=== PATIENT | male | born 1955 | race Caucasian/White ===

== ENCOUNTER 2023-03-06 21:09 | Emergency (ER) | payer MEDICARE, MEDICAID, SELFPAY ==
[2023-03-06 21:27] VITALS: BP 160/100; PULSE 127; RESP 18; TEMP 37.1; O2SAT 98; BMI 21.6
[2023-03-06 22:14] LABS: Basophils Percent Auto 0.4 % (0.2-2.0); Eosinophils Absolute Auto 0.1 10^3/uL (0.0-0.7); Eosinophils Percent Auto 2.9 % (0.9-7.0); Hematocrit 37.6 % (42.0-54.0); Hemoglobin 13.3 g/dL (14.0-18.0); Immature Granulocytes Abs Auto 0.02 10^3/uL (0.00-0.03); Immature Granulocytes Pct Auto 0.4 % (0.0-0.5); Lymphocytes Absolute Auto 0.9 10^3/uL (1.2-3.8); Mean Corpuscular HGB Conc 35.4 g/dL (29.9-35.2); Mean Corpuscular Hemoglobin 31.4 pg (25.9-34.0); Mean Corpuscular Volume 88.9 fL (80.0-94.0); Mean Platelet Volume 10.5 fL (9.5-13.5); Monocytes Absolute Auto 0.8 10^3/uL (0.3-0.8); Monocytes Percent Auto 17.4 % (1.7-12.0); Neutrophils Absolute Auto 2.9 10^3/uL (1.4-6.5); Neutrophils Percent Auto 60.9 % (43.0-75.0); Platelet Count 203 10^3/uL (150-450); Red Blood Count 4.23 10^6/uL (4.70-6.10); Red Cell Distribution Width 15.2 % (11.0-15.0); White Blood Count 4.8 10^3/uL (4.0-11.0)
[2023-03-06 22:29] LABS: Alanine Aminotransferase 20 U/L (16-63); Albumin Globulin Ratio 0.8; Albumin Level 3.4 g/dL (3.4-5.0); Alkaline Phosphatase 71 U/L (46-116); Anion Gap 12.9; Aspartate Amino Transferase 22 U/L (15-37); BUN Creatinine Ratio 22.9; Bilirubin Total 0.6 mg/dL (0.2-1.0); Calcium 9.4 mg/dL (8.5-10.1); Carbon Dioxide 28.8 mmol/L (21.0-32.0); Chloride 101 mmol/L (98-107); Estimated GFR (African America >60 (>=60); Estimated GFR (Non-African Ame >60 (>=60); Globulin 4.4 g/dL; Glucose 118 mg/dL (74-106); Potassium 3.7 mmol/L (3.5-5.1); Sodium 139 mmol/L (136-145); Total Protein 7.8 g/dL (6.4-8.2)
--- NOTE | 2023-03-06 22:29 | PC.NURSE ---
Patient with what appears to be bug bites on his face. He states they are all over as well. He lives in a home with other people and none of them have any bites on them. He states that he has stage 4 lung cancer and is on immuno therapy for it through the [facility]. He has been on chemotherapy in the past but it damaged his kidneys. He took Benadryl today at 1630 which helped the itching some. He mentions that he has been drinking a lot of alcohol recently while partying with some friends that are in town .
--- NOTE | 2023-03-06 22:34 | ED_ITS ---
HPI - General Adult General Chief complaint: Skin/Abscess/Foreign Body Stated complaint: BITES, UNKNOWN ORIGIN Time Seen by Provider: 03/06/23 21:35 Source: patient Mode of arrival: walk-in Limitations: no limitations History of Present Illness HPI narrative: The patient presented to us with generalized body rash that developed over the last 1 week, he mentioned that he takes immunotherapy for his lung cancer and he mentioned that this rash is very itchy he denies any nausea vomiting or any other complaints he also denies any fever or chills Related Data Previous Rx's Medication Instructions Recorded prednisone 20 mg tablet 40 mg PO DAILY 3 days #6 tabs 03/06/23 Allergies Allergy/AdvReac Type Severity Reaction Status Date / Time No Known Drug Allergies Allergy Verified 03/06/23 21:30 Review of Systems ROS Status of ROS 10 or more systems reviewed and unremarkable except as noted in history and below Exam Narrative Exam Narrative: Nurses notes and vital signs reviewed and patient is not hypoxic. General: Well-appearing and in no apparent distress. Skin: Warm, dry, no pallor noted. No rash. Head: Normocephalic, atraumatic. Neck: Supple, non-tender. Eye: Pupils are equal, round and EOMI. No scleral icterus. Ears, Nose, Mouth, and Throat: TM are clear, no nasal mucosal hypertrophy. Oral mucosa is moist, no posterior oropharynx erythema, uvula is mid-line Cardiovascular: Regular Rate and Rhythm without murmur, gallop or rub. Respiratory: No accessory muscle use or respiratory distress. Lungs are clear to auscultation, no wheezing, rales or rhonchi Chest Wall: no tenderness Back: No midline thoracic or lumbar vertebral tenderness. No CVA tenderness Musculoskeletal: normal ROM, no calf or popliteal tenderness, no lower extremity edema/swelling GI: Abdomen is soft, non-distended. Normal bowel sounds. No masses appreciated. No tenderness to palpation. No rebound, guarding, or rigidity noted. Neurological: A&O x4. No cranial nerve dysfunction observed. No truncal ataxia. Moves all extremities. Sensation intact. Psychiatric: Cooperative and interactive. Normal mood and affect. Skin The patient have a rash that is macular papular with a black spot at the middle of it mostly secondary to the scratch reinaldo that is scattered over the upper and lower extremities as well as the face and lips the patient also have rash on the scalp area and one of the spots on his upper back and his abdomen there is only one spot Constitutional Vital Signs, click to edit/add: Last Vital Signs Temp 98.8 F 03/06/23 21:27 Pulse 127 H 03/06/23 21:27 Resp 18 03/06/23 21:27 BP 160/100 H 03/06/23 21:27 Pulse Ox 98 03/06/23 21:27 Course Vital Signs Vital signs: Vital Signs Temperature 98.8 F 03/06/23 21:27 Pulse Rate 127 H 03/06/23 21:27 Respiratory Rate 18 03/06/23 21:27 Blood Pressure 160/100 H 03/06/23 21:27 Pulse Oximetry 98 03/06/23 21:27 Temperature 98.8 F 03/06/23 21:27 Pulse Rate 127 H 03/06/23 21:27 Respiratory Rate 18 03/06/23 21:27 Blood Pressure 160/100 H 03/06/23 21:27 Pulse Oximetry 98 03/06/23 21:27 Medical Decision Making [facility] Narrative Medical decision making narrative: The patient rashes mostly secondary to the immunotherapy especially with the way that it is extensive there is no fever, the patient CBC and chemistry showed no acute significant pathology He was instructed about hydration he was started on prednisone for the next 3 days, the patient was instructed to call his oncologist as soon as possible to inform him of the presentation The patient is to follow up with primary care physician in next 2-3 days or to return to the emergency department should any of the signs or symptoms worsen or new symptoms develop. The patient agrees with the following Diagnosis and Treatment plan and the patient will be discharged home. Lab Data Labs: Lab Results 03/06/23 Range/Units 22:08 WBC 4.8 (4.0-11.0) 10^3/uL RBC 4.23 L (4.70-6.10) 10^6/uL Hgb 13.3 L (14.0-18.0) g/dL Hct 37.6 L (42.0-54.0) % MCV 88.9 (80.0-94.0) fL MCH 31.4 (25.9-34.0) pg MCHC 35.4 H (29.9-35.2) g/dL RDW 15.2 H (11.0-15.0) % Plt Count 203 (150-450) 10^3/uL MPV 10.5 (9.5-13.5) fL Neut % (Auto) 60.9 (43.0-75.0) % Lymph % (Auto) 18.0 L (20.5-60.0) % [place] % (Auto) 17.4 H (1.7-12.0) % Eos % (Auto) 2.9 (0.9-7.0) % Baso % (Auto) 0.4 (0.2-2.0) % Neut # (Auto) 2.9 (1.4-6.5) 10^3/uL Lymph # (Auto) 0.9 L (1.2-3.8) 10^3/uL [place] # (Auto) 0.8 (0.3-0.8) 10^3/uL Eos # (Auto) 0.1 (0.0-0.7) 10^3/uL Baso # (Auto) 0.0 (0.0-0.1) 10^3/uL Abs Immat Gran (auto) 0.02 (0.00-0.03) 10^3/uL Imm/Tot Granulo (auto) 0.4 (0.0-0.5) % Sodium 139 (136-145) mmol/L Potassium 3.7 (3.5-5.1) mmol/L Chloride 101 (98-107) mmol/L Carbon Dioxide 28.8 (21.0-32.0) mmol/L Anion Gap 12.9 BUN 25.0 H (7.0-18.0) mg/dL Creatinine 1.09 (0.70-1.30) mg/dL Est GFR ( Amer) >60 (>=60) Est GFR (Non-Af Amer) >60 (>=60) BUN/Creatinine Ratio 22.9 Glucose 118 H (74-106) mg/dL Calcium 9.4 (8.5-10.1) mg/dL Total Bilirubin 0.6 (0.2-1.0) mg/dL AST 22 (15-37) U/L ALT 20 (16-63) U/L Alkaline Phosphatase 71 (46-116) U/L Total Protein 7.8 (6.4-8.2) g/dL Albumin 3.4 (3.4-5.0) g/dL Globulin 4.4 g/dL Albumin/Globulin Ratio 0.8 Discharge Plan Discharge Chief Complaint: Skin/Abscess/Foreign Body Clinical Impression: Drug-induced skin rash Patient Disposition: Home, Self-Care Time of Disposition Decision: 22:39 Condition: Good Mode of Transportation: Private Vehicle Prescriptions / Home Meds: New prednisone 20 mg tablet 40 mg PO DAILY 3 Days Qty: 6 0RF Instructions: Acute Rash (ED) Stand Alone Forms: Portal Instructions Referrals: Physician,Non-Staff, MD [Primary Care Provider] - 1 week
[2023-03-06] MEDS: PREDNISONE 20 MG TABLET 40 MG PO (22:47)
== END 2023-03-06 22:51 | disposition home or self-care (01) ==
PROVIDERS: Emergency Provider Emergency Medicine
DX: L27.0 Generalized skin eruption due to drugs and medicaments taken internally (principal); T45.1X5A Adverse effect of antineoplastic and immunosuppressive drugs, initial encounter; C34.90 Malignant neoplasm of unspecified part of unspecified bronchus or lung
CPT/HCPCS: 36415; 80053; 85025; 99283

== ENCOUNTER 2023-07-05 09:00 | Emergency (ER) | payer MEDICARE, MEDICAID, SELFPAY ==
[2023-07-05 09:09] VITALS: BP 151/92; PULSE 84; RESP 18; TEMP 36.7; O2SAT 94; BMI 21.9
--- NOTE | 2023-07-05 09:29 | ED.GENADUL1 ---
HPI - General Adult General Chief complaint: Skin/Abscess/Foreign Body Stated complaint: MOUTH PAIN/SORES Time Seen by Provider: 07/05/23 09:09 Source: patient Mode of arrival: walk-in Limitations: no limitations History of Present Illness HPI narrative: patient developed painful sores to the lips, mouth, tongue and back of the throat a few days ago. No fever or chills. He admits to muscle aches and fatigue as well. Said that it all started after I got the Covid vaccine last week . Related Data Home Medications Medication Instructions Recorded Confirmed atorvastatin 40 mg tablet 40 mg PO DAILY 07/05/23 07/05/23 cilostazol 100 mg tablet 100 mg PO BID 07/05/23 07/05/23 clopidogrel 75 mg tablet 75 mg PO DAILY 07/05/23 07/05/23 isosorbide mononitrate 30 mg 30 mg PO DAILY 07/05/23 07/05/23 tablet,extended release 24 hr levothyroxine 75 mcg tablet 75 mcg PO DAILY 07/05/23 07/05/23 metoprolol tartrate 25 mg tablet mg 07/05/23 naloxone 4 mg/actuation nasal spray intranasal 07/05/23 olanzapine 5 mg tablet mg 07/05/23 oxycodone 5 mg tablet mg 07/05/23 sotorasib 320 mg tablet (Lumakras) mg PO 07/05/23 Previous Rx's Medication Instructions Recorded prednisone 20 mg tablet 40 mg (2 x 20 mg) PO DAILY 3 days 03/06/23 #6 tabs BMX solution 10 ml PO Q8H PRN mouth/throat pain 07/05/23 #150 mL amoxicillin 875 mg tablet 875 mg PO Q12H #20 tabs 07/05/23 Allergies Allergy/AdvReac Type Severity Reaction Status Date / Time No Known Drug Allergies Allergy Verified 03/06/23 21:30 PFSH PFSH Social History Smoking status: Former smoker Exam Narrative Exam Narrative: Nurses notes and vital signs reviewed and patient is not hypoxic. afebrile General: Well-appearing and in no apparent distress. Skin: Warm, dry, no pallor noted. No rash. Head: Normocephalic, atraumatic. Neck: Supple, non-tender. No cervical lymphadenopathy Eye: Pupils are equal, round and EOMI. No scleral icterus. Ears, Nose, Mouth, and Throat: TM are clear, no nasal mucosal hypertrophy. Moderate posterior oropharynx erythema with some exudate, aphthous ulcers noted on tongue and oral mucosa. uvula is mid-line. Oral mucosa is dry. He has two scabbed lesions on his upper lip - no purulent drainage noted. Cardiovascular: Regular Rate and Rhythm without murmur, gallop or rub. Respiratory: No accessory muscle use or respiratory distress. Lungs are clear to auscultation, no wheezing, rales or rhonchi Neurological: A&O x4. No cranial nerve dysfunction observed. No truncal ataxia. Moves all extremities. Sensation intact. Psychiatric: Cooperative and interactive. Normal mood and affect. Constitutional Vital Signs, click to edit/add: Last Vital Signs Temp 98.1 F 07/05/23 09:09 Pulse 84 07/05/23 09:09 Resp 18 07/05/23 09:09 BP 151/92 H 07/05/23 09:09 Pulse Ox 94 L 07/05/23 09:09 O2 Del Method Room Air 07/05/23 09:09 Course Vital Signs Vital signs: Vital Signs Temperature 98.1 F 07/05/23 09:09 Pulse Rate 84 07/05/23 09:09 Respiratory Rate 18 07/05/23 09:09 Blood Pressure 151/92 H 07/05/23 09:09 Pulse Oximetry 94 L 07/05/23 09:09 Oxygen Delivery Method Room Air 07/05/23 09:09 Temperature 98.1 F 07/05/23 09:09 Pulse Rate 84 07/05/23 09:09 Respiratory Rate 18 07/05/23 09:09 Blood Pressure 151/92 H 07/05/23 09:09 Pulse Oximetry 94 L 07/05/23 09:09 Oxygen Delivery Method Room Air 07/05/23 09:09 Medical Decision Making MDM Narrative Medical decision making narrative: started on amoxiciilin and prescribed bmx solution for his aphthous ulcers and pharyngitis. Close PCP follow up recommended. ED return if he worsens. Discharge Plan Discharge Chief Complaint: Skin/Abscess/Foreign Body Clinical Impression: Aphthous stomatitis, Pharyngitis Patient Disposition: Home, Self-Care Time of Disposition Decision: 09:24 Prescriptions / Home Meds: New amoxicillin 875 mg tablet 875 mg PO Q12H Qty: 20 0RF BMX solution 10 ml PO Q8H PRN (Reason: mouth/throat pain) Qty: 150 0RF Rx Instructions: 50mL benadryl, 50mL maalox, 50mL lidocaine mixed; dose is 10mL gargled and swallowed q8hrs prn mouth/throat soreness No Action prednisone 20 mg tablet 40 mg PO DAILY 3 Days Qty: 6 0RF atorvastatin 40 mg tablet 40 mg PO DAILY cilostazol 100 mg tablet 100 mg PO BID clopidogrel 75 mg tablet 75 mg PO DAILY isosorbide mononitrate 30 mg tablet extended release 24 hr 30 mg PO DAILY levothyroxine 75 mcg tablet 75 mcg PO DAILY metoprolol tartrate 25 mg tablet olanzapine 5 mg tablet oxycodone 5 mg tablet naloxone 4 mg/actuation spray,non-aerosol INTRANASAL Lumakras 320 mg tablet PO Instructions: Pharyngitis (ED), Gingivostomatitis (ED) Stand Alone Forms: Portal Instructions Referrals: Physician,Non-Staff, MD [Primary Care Provider] - 1 week
== END 2023-07-05 09:37 | disposition home or self-care (01) ==
PROVIDERS: Emergency Provider Emergency Medicine
DX: K12.0 Recurrent oral aphthae (principal); J02.9 Acute pharyngitis, unspecified; Z79.899 Other long term (current) drug therapy; Z79.890 Hormone replacement therapy; Z87.891 Personal history of nicotine dependence
CPT/HCPCS: 99283

== ENCOUNTER 2024-02-03 14:09 | Outpatient (OUT) | payer MEDICARE, MEDICAID, SELFPAY ==
--- NOTE | 2024-02-03 14:11 | US_ITS ---
[address] [address] Patient Name: CRISTAL BARRY MRN: [id number] date: 1955 Sex: M Assigned Patient Location: US Current Patient Location: US Accession/Order Number: [id number] Exam Date: 02/03/2024 14:12 Report Date: 02/03/2024 15:18 At the request of: YUSEF PANDYA Procedure: US venous doppler UE LT EXAM: US venous doppler UE LT HISTORY: Primary Malignant Neoplasm Of Left Lung Metastatic COMPARISON: None. TECHNIQUE: Grayscale, color and Doppler FINDINGS: Region: Left arm Thrombus: None Flow: Normal Compressibility: Normal Augmentation: Normal US/US venous doppler UE LT IMPRESSION: No deep or superficial vein thrombus identified in the left arm Electronically authenticated by: BRANDON HENRY Date: 02/03/2024 15:18
== END 2024-02-03 14:10 | disposition home or self-care (01) ==
LOC: US 14:09
PROVIDERS: Visit Provider Physician Assistant Medical
DX: C34.92 Malignant neoplasm of unspecified part of left bronchus or lung (principal); M79.89 Other specified soft tissue disorders
CPT/HCPCS: 93971

== ENCOUNTER 2024-02-20 20:02 | Emergency (ER) | payer MEDICARE, MEDICAID, SELFPAY ==
[2024-02-20 20:04] VITALS: BP 161/91; PULSE 80; TEMP 36.7; O2SAT 100; BMI 17.2
--- OUTSIDE RECORDS SUMMARY | 2024-02-20 20:12 | XMS_ITS | CCD ---
Author Organization [facility]ini[facility] Care Team Providers Care Calibrator Barometers Name Role Phone UNKNOWN, PROVIDER Admitting Unavailable UNKNOWN, PROVIDER Attending Unavailable CHRISTINA AZUL Referring Unavailable CHRISTINA AZUL Primary Care Unavailable Adalgisa KHOURY, Heba Unavailable Christina Azul MD Primary Care Provider Verito Whelan MD Unavailable Seb KHOURY, Pito R Unavailable Paul STATION MECHANIC HELPER.Sher VILLEDAy Unavailable [phone] Fredi PAYNE, Denita Unavailable [phone] Adalgisa KHOURY, Heba Unavailable Christina Azul MD Primary Care Provider Tip KHOURY, Verito Unavailable Seb KHOURY, Pito R Unavailable [phone] Paul STATION MECHANIC HELPER.Sher VILLEDAy Unavailable Fredi PAYNE, Denita Unavailable [phone] AMRITA Swann Attending Provider [phone] NO FAMILY, PHYSICIAN Primary Care Provider Unava ilable Adalgisa KHOURY, Heba Unavailable Christina Azul MD Primary Care Provider Fredi PAYNE, Denita Unavailable Christina Azul MD Primary Care Provider Adalgisa KHOURY, Heba Unavailable Christina Azul MD Primary Care Provider Verito Whelan MD Unavailable [phone] Seb KHOURY, Pito Naranjo Unavailable Paul STATION MECHANIC HELPERBrent FOSTER Unavailable [phone] Fredi PAYNE, Denita Unavailable [phone] LOVE ALBERTS Consulting Unavailable ERICKA ., VILMA Attending Unavailable ERICKA ., VILMA Admitting Unavailable AZUL ., DR CHRISTINA Brothers Primary Care Unavailable ERICKA ., VILMA Consulting Unavailable AR, DR YUNIOR Naranjo Consulting Unavailable HOY ., DR MARTINEZ Attending Unavailable HOY ., DR MARTINEZ Admitting Unavailable AZUL ., DR CHRISTINA Brothers Primary Care Unavailable HOY ., DR MARTINEZ Consulting Unavailable TIFFANY, DR JANICE Young Consulting UnavailNIDIA Mcgee Consulting Unavailable JOSUE SINGH Consulting Unavailable ANTUNEZ, LEA Consulting Unavailable PAUL, DR BRENT Ramires Consulting Unavailable PAUL, DR BRENT Ramires Attending Unavailable PAUL, DR BRENT Ramires Admitting Unavailable AZUL ., DR CHRISTINA Brothers Primary Care Unavailable AZUL ., DR CHRISTINA Brothers Consulting Unavailable AZUL ., DR CHRISTINA Brothers Primary Care Unavailable AZUL ., DR CHRISTINA Brothers Attending Unavailable AZUL ., DR CHRISTINA Brothers Admitting Unavailable MOUKAROSANNE, DR MAHARAJ Consulting Unavailable AZUL ., DR CHRISTINA Brothers Primary Care Unavailable MOUKAROSANNE, DR MAHARAJ Attending Unavailable MOUKARBMYKE, DR MAHARAJ Admitting Unavailable CARL, DR BRANDON Negron Consulting Unavailable AZUL ., DR CHRISTINA Brothers Primary Care Unavailable ENGELER, DR NICKO Foster Attending Unavailable ENGELER, DR NICKO oFster Admitting Unavailable ENGELEMarcella, DR NICKO Foster Consulting Unavailable AZUL ., DR CHRISTINA Brothers Consulting Unavailable AZUL ., DR CHRISTINA Brothers Primary Care Unavailable AZUL ., DR CHRISTINA Brothers Attending Unavailable AZUL ., DR CHRISTINA Brothers Admitting Unavailable ZIEBER, DR TRUDY Naranjo Consulting Unavailable CARL, DR BRANDON Negron Consulting Unavailable AZUL ., DR CHRISTINA Brothers Primary Care Unavailable ENGELEMarcella, DR NICKO Foster Attending Unavailable ENGELEMarcella, DR NICKO Foster Admitting Unavailable ENGELEMarcella, DR NICKO Foster Consulting Unavailable CRAL, DR BRANDON Negron Consulting Unavailable AZUL ., DR CHRISTINA Brothers Referring Unavailable AZUL ., DR CHRISTINA Brothers Primary Care Unavailable JAJA, CAMMY Attending Unavailable JAJA, CAMMY Admitting Unavailable JAJA, CAMMY Consulting Unavailable PAUL, DR BRENT Ramires Consulting Unavailable AZUL ., DR CHRISTINA Brothers Primary Care Unavailable PAUL, DR BRENT Ramires Attending Unavailable PAUL, DR BRENT Ramires Admitting Unavailable MOUKAROSANNE, NICKO Referring Unavailable MOUKARBMYKE, NICKO Referring Unavailable MOUKARBEL, NICKO Referring Unavailable MOUKARBMYKE, NICKO Attending Unavailable MOUKANICKO LAY Referring Unavailable MD Christina Azul Primary Care Provider Kev, STATION MECHANIC HELPER Sapna Guzmán Emergency Provider Rohan ROBLES, Minna Unavailable Unavailable Karla, Dr. Perry Attending Unavailable Unavailable Primary Care Provider Unavailrome Diana MD, Heba Unavailable Fredi RN, Denita Unavailable Melaniriddewey STATION MECHANIC HELPER.RN DERMATOLOGY, Maryjo Kinsey Unavailable Willie PAYNE, Julieth Beatty Unavailable Unavail able Cate STATION MECHANIC HELPER.RONAL, Enrique Beatty Primary Care Provider Cate STATION MECHANIC HELPER.RONAL, Enrique Beatty Primary Care Provider NON STAFF Primary Care Provider UnavailMD Luis Oliveira Emergency Provider [phone] Cate, Enrique Beatty Attending Unavailable Cate, Enrique Beatty Attending Unavailable Cate, Enrique Beatty Attending Unavailable Cate, Enrique Beatty Attending Unavailable Cate, Enrique Beatty Attending Unavailable Cate, Enrique L Attending Unavailable Cate, Enrique L Attending Unavailable Cate, Enrique L Attending Unavailable Cate, Enrique Beatty Attending Unavailable Cate, Enrique Beatty Attending Unavailable Cate, Enrique L Attending Unavailable Cate, Enrique L Attending Unavailable Cate, Enrique L Attending Unavailable Cate, Enrique Beatty Attending Unavailable Cate, Enrique Beatty Attending Unavailable Luis Dominguez Attending Unavailable Luis Dominguez Admitting Unavailable NON STAFF Primary Care Unavailable Cate STATION MECHANIC HELPER.Enrique VILLEDA Primary Care Provider CHRISTINA AZUL Primary Care Unavailable PITO GRIGSBY Referring Unavailable PITO GRIGSBY Attending Unavailable CHRISTINA AZUL Primary Care Unavailable PITO GRIGSBY Referring Unavailable CHRISTINA AZUL Primary Care Unavailable CHRISTINA AZUL Primary Care Unavailable PITO GRIGSBY Referring Unavailable BRENT MILLER Referring Unavailable CHRISTINA AZUL Primary Care Unavailable BRENT MILLER Attending Unavailable AZUL, CHRISTINA EDWARD Primary Care Unavailable PITO GRIGSBY Referring Unavailable AZUL, CHRISTINA EDWARD Primary Care Unavailable AZUL, CHRISTINA EDWARD Primary Care Unavailable PITO GRIGSBY Referring Unavailable PITO GRIGSBY Attending Unavailable AZUL, CHRISTINA EDWARD Primary Care Unavailable PITO GRIGSBY Referring Unavailable CATE, ENRIQUE RACHEL Primary Care Unavailable PITO GRIGSBY Referring Unavailable CATE, ENRIQUE RACHEL Primary Care Unavailable DOMINIQUE MURPHY Attending Unavailabl e CATE, ENRIQUE RACHEL Primary Care Unavailable CATE, ENRIQUE RACHEL Primary Care Unavailable CATE, ENRIQUE RACHEL Referring Unavailable CATE, ENRIQUE RACHEL Primary Care Unavailable Jyoti LIMON Attending Unavailable CATE, ENRIQUE RACHEL Primary Care Unavailable CATE, ENRIQUE RACHEL Primary Care Unavailable Jyoti LIMON Referring Unavailable Jyoti LIMON Referring Unavailable CATE, ENRIQUE RACHEL Primary Care Unavailable Jyoti LIMON Referring Unavailable CATE, ENRIQUE RACHEL Primary Care Unavailable Jyoti LIMON Referring Unavailable CATE, ENRIQUE RACHEL Primary Care Unavailable AZUL, CHRISTINA EDWARD Primary Care Unavailable PITO GRIGSBY Attending Unavailable AZUL, CHRISTINA EDWARD Primary Care Unavailable AZUL, CHRISTINA EDWARD Primary Care Unavailable Jyoti LIMON Attending Unavailable AZUL, CHRISTINA EDWARD Primary Care Unavailable NYDIA PARKS Attending Unavailable AZUL, CHRISTINA EDWARD Primary Care Unavailable NYDIA PARKS Attending Unavailable AZUL, CHRISTINA EDWARD Primary Care Unavailable MARYJO FISH Attending UnavailMARYJO Madrid Referring Unavailabl e AZUL, CHRISTINA EDWARD Primary Care Unavailable Jyoti LIMON Attending Unavailable AZUL, CHRISTINA EDWARD Primary Care Unavailable Jyoti LIMON Attending Unavailable AZUL, CHRISTINA EDWARD Primary Care Unavailable BRENT MILLER Attending Unavailable AZUL, CHRISTINA EDWARD Primary Care Unavailable AZUL, CHRISTINA EDWARD Primary Care Unavailable PITO GRIGSBY Referring Unavailable AZUL, CHRISTINA EDWARD Primary Care Unavailable CATE, ENRIQUE RACHEL Primary Care Unavailable PITO GRIGSBY Referring Unavailable PITO GRIGSBY Referring Unavailable AZUL, CHRISTINA EDWARD Primary Care Unavailable AZUL, CHRISTINA EDWARD Primary Care Unavailable MARYJO FISH Attending Unavailabl e MARYJO FISH Referring Unavailabl e CATE, ENRIQUE RACHEL Primary Care Unavailable CATE, ENRIQUE RACHEL Primary Care Unavailable DOMINIQUE MURPHY Attending Unavailabl e CATE, ENRIQUE RAMOS Referring Unavailable CATE, ENRIQUE RACHEL Primary Care Unavailable PITO GRIGSBY Attending Unavailable AZUL, [facility] Primary Care Unavailable AZUL, [facility] Primary Care Unavailable PITO GRIGSBY Attending Unavailable AZUL, [facility] Primary Care Unavailable PITO GRIGSBY Referring Unavailable BRENT MILLER Attending Unavailable AZUL, [facility] Primary Care Unavailable PITO GRIGSBY Referring Unavailable AZUL, [facility] Primary Care Unavailable AZUL, [facility] Primary Care Unavailable PITO GRIGSBY Referring Unavailable MINDY PANDYA Attending Unavailable CATE, ENRIQUE RAMOS Referring Unavailable CATE, ENRIQUE RAMOS Primary Care Unavailable CATE, ENRIQUE RAMOS Referring Unavailable CATE, ENRIQUE RAMOS Primary Care Unavailable PITO GRIGSBY Attending Unavailable Jyoti LIMON Attending Unavailable AZUL, [facility] Primary Care Unavailable YO TSE Attending Unavailable AZUL, [facility] Primary Care Unavailable PITO GRIGSBY Referring Unavailable AZUL, [facility] Primary Care Unavailable MARYJO FISH Attending Unavailabl e AZUL, [facility] Primary Care Unavailable PITO GRIGSBY Attending Unavailable AZUL, [facility] Primary Care Unavailable PITO GRIGSBY Referring Unavailable CATE, ENRIQUE RAMOS Primary Care Unavailable Jyoti LIMON Attending Unavailable CATE, ENRIQUE RAMOS Primary Care Unavailable CATE, ENRIQUE RAMOS Primary Care Unavailable Jyoti LIMON Attending Unavailable CATE, ENRIQUE RAMOS Primary Care Unavailable Jyoti LIMON Attending Unavailable CATE, ENRIQUE RAMOS Primary Care Unavailable CATE, ENRIQUE RAMOS Referring Unavailable CATE, ENRIQUE RACHEL Primary Care Unavailable PITO GRIGSBY Attending Unavailable CATE, ENRIQUE RACHEL Primary Care Unavailable PITO GRIGSBY Attending Unavailable CATE, ENRIQUE RAMOS Primary Care Unavailable MARYJO FISH Attending Unavailabl MARYJO Prince Referring Unavailabl e CATE, ENRIQUE RAMOS Primary Care Unavailable CATE, ENRIQUE RAMOS Primary Care Unavailable PITO GRIGSBY Referring Unavailable AZUL, [facility] Primary Care Unavailable CATE, ENRIQUE RAMOS Primary Care Unavailable CATE, ENRIQUE RACHEL Primary Care Unavailable PITO GRIGSBY Referring Unavailable CATE, ENRIQUE RAMOS Referring Unavailable CATE, ENRIQUE RAMOS Primary Care Unavailable PITO GRIGSBY Attending Unavailable CATE, ENRIQUE RAMOS Primary Care Unavailable CATE, ENRIQUE RAMOS Primary Care Unavailable ENGARIASRJyoti Attending Unavailable CATE, ENRIQUE RAMOS Primary Care Unavailable ENGELERJyoti Referring Unavailable CATE, ENRIQUE RAMOS Primary Care Unavailable ENGELERJyoti Referring Unavailable CATE, ENRIQUE RAMOS Primary Care Unavailable ENGELERJyoti Referring Unavailable CATE, ENRIQUE RAMOS Primary Care Unavailable ENGELERJyoti Attending Unavailable CATE, ENRIQUE RAMOS Primary Care Unavailable ENGELERJyoti Referring Unavailable ENGELERJyoti Attending Unavailable CATE, ENRIQUE RAMOS Primary Care Unavailable ENGELEJyoti Naranjo Attending Unavailable CATE, ENRIQUE RACHEL Primary Care Unavailable AZUL [facility] Primary Care Unavailable BRENT MILLER Attending Unavailable AZUL, [facility] Unavailable AZUL, [facility] Care Unavailable Jyoti LIMON Attending Unavailable AZUL, [facility] Care Unavailable CATE, ENRIQUE RAMOS Primary Care Unavailable ENGELERJyoti Referring Unavailable CATE, ENRIQUE RAMOS Referring Unavailable CATE, ENRIQUE RAMOS Primary Care Unavailable PITO GRIGSBY Attending Unavailable Medications Current Medications Medication Drug Class(es) Dates Sig (Normalized) Sig (Original) [id number] 200 actuat albuterol 0.09 mg/actuat metered dose inhaler (20 sources) beta2-Adrenergic Agonist Start: 06-07-2020 take 1 puff(s) by inhalation every four hours Albuterol Sulfate Active 1 PUFF INHALATION Q4H June 07, 2020 1:00am End: 10-21-2022 take 2 puff(s) by mouth every four hours as needed albuterol HFA (PROVENTIL HFA, VENTOLIN HFA) 90 mcg/actuation inhaler albuterol sulfate HFA 90 mcg/actuation aerosol inhaler INHALE 2 PUFFS BY MOUTH EVERY 4 HOURS NEEDED for SHORTNESS OF BREATH 0 10/21/2022 Discontinued End: 10-21-2022 albuterol (PROVENTIL) 2.5 mg /3 mL (0.083 %) nebulizer solution Use 2.5 mg via nebulizer. 0 10/21/2022 Discontinued Comment on above: albuterol sulfate HF A 90 mcg/actuation aerosol inhaler INHALE 2 PUFFS BY MOUTH EVERY 4 HOURS NEEDED for SHORTNESS OF BREATH Use 2.5 mg via nebul izer. ALPRAZolam 0.25 mg oral tablet (20 sources) Benzodiazepine Start: take 1 tablet by mouth every eight hours as needed ALPRAZolam (XANAX) 0.25 mg tablet Take 0.25 mg by mouth three times a day as needed. 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 15 tablet 0 01/13/2023 01/20/2023 Active Start: 11-18-2021 End: 11-30-2021 take 1 tablet by mouth every eight hours as needed ALPRAZolam (XANAX) 0.25 mg tablet Take 0.25 mg by mouth three times daily as needed. 0 11/18/2021 11/30/2021 Discontinued (Discontinued by Patient) Comment on above: Take 0.25 mg by mout h three times daily as needed. Take 1 tablet by cam th twice daily for 7 days. Take 1 tablet by cam th three times daily as needed for up to 15 days. Take 0.25 mg by mout h three times a day as needed. aspirin 81 mg delayed release oral tablet (20 sources) Platelet Aggregation Inhibitor, Nonsteroidal Anti-inflammatory Drug Start: 04-12-2021 take 1 tablet by mouth once daily Aspirin (Aspirin Low Dose) 81 mg Tablet,Delayed Release (Dr/Ec) Active 81 MG PO Daily April 12, 2021 12:00am Start: 03-28-2021 End: 04-12-2021 take 81 mg by mouth once daily Aspirin Discontinued 81 MG PO Daily March 28, 2021 12:00am April 12, 2021 12:27pm take 1 tablet by cam once daily aspirin 81 mg chewable tablet Take 81 mg by mouth once daily. 0 Active Comment on above: Take 81 mg by mouth once daily. atorvastatin 40 mg oral tablet (20 sources) HMG-CoA Reductase Inhibitor Start: 06-07-20 take 1 tablet by mouth once daily atorvastatin (LIPITOR) 40 mg tablet Take 40 mg by mouth once daily. 0 06/07/2020 Active Comment on above: atorvastatin 40 mg t ablet Take 40 mg by mouth once daily. azithromycin 250 mg oral tablet (20 sources) Macrolide Antimicrobial Start: 02-07-20 Azithromycin (Zithromax Z-David) 250 mg tablet Active 0 .ROUTE .COMPLEX February 07, 2024 12:00am take 500 mg today (day 1), then 250 mg for 4 days (days 2-5) Start: 07-23-2023 End: 08-25-2023 azithromycin (ZITHROMAX) 250 mg tablet TAKE 2 TABLETS by mouth today, THEN take 1 TABLET once a day FOR the next 4 DAYS. 0 07/23/2023 08/25/2023 Discontinued (Course of therapy completed) Start: 03-11-2023 End: 05-16-2023 take 2 tablets by mouth once daily, then take 1 tablet by mouth once daily azithromycin (ZITHROMAX Z-DAVID) 250 mg tablet Take two (2) tablets by mouth the first day and then one (1) tablet daily for 4 days. 6 tablet 0 05/08/2023 05/16/2023 Discontinued (Course of therapy completed) Start: 12-24-2022 take 2 tablets by mo ut once daily, then take 1 tablet by mouth once daily azithromycin (ZITHROMAX Z-DAVID) 250 mg tablet Take two (2) tablets by mouth the first day and then one (1) tablet daily for 4 days. 6 tablet 0 12/24/2022 Active Comment on above: Take two (2) tablets by mouth the first day and then one (1) tablet daily for 4 days. TAKE 2 TABLETS by mo [facility] today, THEN take 1 TABLET once a day FOR the next 4 DAYS. cephalexin 500 mg oral tablet (20 sources) Cephalosporin Antibacterial Start: 2 End: 2 take 1 tablet by mouth three times daily Cephalexin 500 mg tab Take 1 tablet by mouth three times daily. 0 12/21/2021 03/26/2022 Discontinued (Course of therapy completed) Start: 06-12-2020 End: 03-28-2021 take 1 capsule by mouth every eight hours Cephalexin (Keflex) 500 mg capsule Discontinued 500 MG PO Q8H June 12, 2020 1:00am March 28, 2021 9:13am Comment on above: [facility] cilostazol 100 mg oral tablet (20 sources) Phosphodiesterase 3 Inhibitor Start: 10-11-19 take 1 tablet by mouth twice daily cilostazol (PLETAL) 100 mg tablet Take 1 tablet by mouth twice daily. 0 10/10/2021 Active Start: 04-12-2021 End: 10-04-2021 take 1 tablet by mouth twice daily cilostazol (PLETAL) 100 mg tablet Take 1 tablet by mouth twice daily. 0 10/10/2021 Active Start: 06-07-2020 End: 03-28-2021 take 100 mg by mouth once daily Cilostazol Discontinue d 100 MG PO Daily June 07, 2020 1:00am March 28, 2021 9:14am Comment on above: Take 1 tablet by cam twice daily. Take 100 mg by mouth twice daily. ciprofloxacin 500 mg oral tablet (2 sources) Quinolone Antimicrobial Start: 01-15-20 End: 01-22-20 take 1 tablet by mouth twice daily ciprofloxacin HCl (CIPRO) 500 mg tablet Take 1 tablet by mouth twice daily for 7 days. 14 tablet 0 01/14/2022 01/21/2022 Active Comment on above: Take 1 tablet by cam twice daily for 7 days. ciprofloxacin 3 mg/ml / dexamethasone 1 mg/ml otic suspension (1 source) Corticosteroid, Quinolone Antimicrobial Start: 02-07-20 End: 02-13-20 ciprofloxacin-dexAMET Hasone (CIPRODEX) 0.3-0.1 % otic suspension Use 4 Drops in both ears twice daily. 0 02/06/2023 02/12/2023 Active Comment on above: Use 4 Drops in both ears twice daily. clopidogrel 75 mg oral tablet (20 sources) P2Y12 Platelet Inhibitor Start: 10-11-19 take 1 tablet by mouth once daily clopidogrel (PLAVIX) 75 mg tablet Take 1 tablet by mouth once daily. 0 10/10/2021 Active Start: 06-07-2020 End: 10-04-2021 take 1 tablet by mouth once daily clopidogrel (PLAVIX) 75 mg tablet Take 1 tablet by mouth once daily. 0 10/10/2021 Active Comment on above: Take 1 tablet by cam th once daily. clopidogrel 75 mg ta blet dexamethasone 4 mg oral tablet (20 sources) Corticosteroid Start: take 1 tablet by mouth twice daily at mealtime dexAMETHasone (DECADRON) 4 mg tablet Take 1 tablet by mouth two times a day with meals. 30 tablet 1 12/02/2023 Active DULoxetine 30 mg delayed release oral capsule (20 sources) Serotonin and Norepinephrine Reuptake Inhibitor Start: End: take 1 capsule by mouth once daily DULoxetine (CYMBALTA) 30 mg capsule Indications: Neuropathy due to chemotherapeutic drug (HCC) Take 1 capsule by mouth once daily. 90 capsule 0 12/26/2023 03/25/2024 Active enteric contrast (will be provided with radiology test) (1 source) Start: End: enteric contrast (will be provided with radiology test) For CT CHESTABD/PEL W IVCON Routine order Administer, As Directed One Time Only, via Oral, Rectal, both Oral and Rectal, Enteric Tube, Stoma or Indwelling Catheter, Enteric Contrast as designated per enteric contrast guidelines 1 Each 0 08/20/2022 08/21/2022 Active Comment on above: For CT CHESTABD/PEL W IVCON Routine order Administer, As Directed One Time Only, via Oral, Rectal, both Oral and Rectal, Enteric Tube, Stoma or Indwelling Catheter, Enteric Contrast as designated per enteric contrast guidelines 72 hr fentaNYL 0.05 mg/hr transdermal system (8 sources) Opioid Agonist Start: 024 Fentanyl Active 1 PATCH TOPICAL Every 72 hours February 07, 2024 12:00am Start: 01-09-2024 End: 02-08-2024 fentaNYL (DURAGESIC) 50 mcg/ hr Indications: Neoplasm related pain Apply 1 Patch as directed every 72 hours for 30 days. Do not cut patch. 10 Patch 0 01/09/2024 Active ferrous sulfate 325 mg oral tablet (20 sources) Start: 12-10-2021 End: 03-26-2022 FEROSUL 325 mg (65 mg iron) tablet gabapentin 400 mg oral capsule (20 sources) Anti-epilepti c Agent Start: 11-21-2023 End: 12-26-2023 take 1 capsule by mouth twice daily gabapentin (NEURONTIN) 400 mg capsule Indications: Neuropathy due to chemotherapeutic drug (HCC) Take 1 capsule by mouth two times a day for 30 days. 60 capsule 0 11/21/2023 12/26/2023 Discontinued Start: 05-16-2023 End: 11-21-2023 take 1 capsule by mouth three times daily gabapentin (NEURONTIN) 300 mg capsule Take 1 capsule by mouth three times a day 90 capsule 3 06/13/2023 11/21/2023 Discontinued Start: 05-16-2023 End: 06-15-2023 take 1 capsule by mouth three times daily, then take 2 capsules by mouth three times daily, then take 3 capsules by mouth three times daily gabapentin (NEURONTIN) 100 mg capsule Indications: Neuropathy due to chemotherapeutic drug (HCC) Take 1 capsule by mouth three times a day for 3 days, THEN 2 capsules three times a day for 3 days, THEN 3 capsules three times a day for 24 days. 243 capsule 0 05/16/2023 06/13/2023 Discontinued Start: 11-04-2022 End: 12-04-2022 take 1 capsule by mouth twice daily gabapentin (NEURONTIN) 300 mg capsule Take 1 capsule by mouth twice daily for 30 days. 60 capsule 2 11/04/2022 Active Comment on above: Take 1 capsule by mo [facility] twice daily for 30 days. Take 1 capsule by mo [facility] three times a day for 3 days, THEN 2 capsules three times a day for 3 days, THEN 3 capsules three times a day for 24 days. Take 1 capsule by mo [facility] three times a day for 120 days. Take 1 capsule by mo [facility] three times a day 24 hr isosorbide mononitrate 30 mg extended release oral tablet (20 sources) Nitrate Vasodilator Start: 03-28-20 End: 10-30-19 take 30 mg by mouth once daily Isosorbide Mononitrate Active 30 MG PO Daily March 28, 2021 12:00am Comment on above: Take 30 mg by mouth once daily. levoFLOXacin 500 mg oral tablet (13 sources) Quinolone Antimicrobial Start: 11-03-19 End: 11-13-19 take 1 tablet by mouth once daily levoFLOXacin (LEVAQUIN) 500 mg tablet Take 1 tablet by mouth once daily for 10 days. 10 tablet 0 11/02/2022 11/12/2022 Active Start: 09-11-2022 End: 09-18-2022 take 1 tablet by mouth once daily levoFLOXacin (LEVAQUIN) 750 mg tablet Take 1 tablet by mouth once daily for 7 days. 7 tablet 0 09/11/2022 09/18/2022 Active Start: 08-20-2022 End: 08-27-2022 take 1 tablet by mouth once daily levoFLOXacin (LEVAQUIN) 750 mg tablet Take 1 tablet by mouth once daily for 7 days. 7 tablet 0 08/20/2022 08/27/2022 Active Start: 11-18-2021 End: 11-26-2021 take 1 tablet by mouth once daily levoFLOXacin (LEVAQUIN) 750 mg tablet Take 750 mg by mouth once daily. 0 11/18/2021 11/26/2021 Active Comment on above: Take 750 mg by mouth once daily. Take 1 tablet by [facility] once daily for 7 days. Take 1 tablet by [facility] once daily for 10 days. levothyroxine sodium 0.075 mg oral tablet (20 sources) l-Thyroxine Start: 3 End: take 1 tablet by mouth once daily levothyroxine (SYNTHROID) 75 mcg tablet Take 1 tablet by mouth once daily. 30 tablet 1 12/24/2023 02/22/2024 Active Start: 04-23-2023 End: 06-04-2023 take 1 tablet by mouth once daily levothyroxine (SYNTHROID) 50 mcg tablet Take 1 tablet by mouth once daily. 30 tablet 0 05/05/2023 05/19/2023 Discontinued Comment on above: Take 1 tablet by cam once daily. methylPREDNISolone 4 mg oral tablet (19 sources) Corticosteroid Start: 02-07-20 Methylprednisolone Active 4 MG PO As Directed February 07, 2024 12:00am Start: 07-23-2023 End: 08-25-2023 methylPREDNISolone (MEDROL D OSE-PACK) 4 mg Dose-Pack Take by mouth as directed. Per package instructions 0 07/23/2023 08/25/2023 Discontinued Start: 03-10-2023 End: 03-15-2023 methylPREDNISolone (MEDROL, DAVID,) 4 mg Dose-Pack Take by mouth as directed. 21 tablet 0 03/10/2023 03/15/2023 Active Start: 10-10-2022 End: 10-21-2022 methylPREDNISolone (MEDROL D OSE-PACK) 4 mg Dose-Pack Take by mouth as directed. Per package instructions 0 10/10/2022 10/21/2022 Discontinued Start: 02-11-2022 End: 03-26-2022 methylPREDNISolone (MEDROL, DAVID,) 4 mg Dose-Pack Take as directed. 1 Package 0 02/11/2022 03/26/2022 Discontinued (Course of therapy completed) Start: 02-11-2022 methylPREDNISo lone (MEDROL, DAVID,) 4 mg Dose-Pack Take as directed. 1 Package 0 02/11/2022 Active Comment on above: Take as directed. Take by mouth as dir ected. Per package instructions Take by mouth as dir ected. minocycline 50 mg oral tablet (2 sources) Tetracycline-class Drug Start: 03-13-20 End: 03-26-20 take 1 tablet by mouth twice daily Minocycline HCl 50 mg tablet Take 50 mg by mouth twice daily. 0 03/13/2022 03/26/2022 Discontinued (Discontinued by another Health Care Provider) Comment on above: Take 50 mg by mouth twice daily. naloxone hydrochloride 40 mg/ml nasal spray (4 sources) Opioid Antagonist Start: 01-09-20 naloxone 4 mg/actuation nasal spray (NARCAN) Indications: Opioid contract exists Use 1 spray in one nostril as needed for overdose. May repeat every 2 to 3 min in alternating nostrils until medical assistance is available 1 Each 1 01/09/2024 Active Start: 06-13-2023 End: 08-25-2023 naloxone 4 mg/actuation nasa l spray (NARCAN) Indications: Opioid contract exists Use 1 spray in one nostril as needed for overdose. May repeat every 2 to 3 min in alternating nostrils until medical assistance is available 2 Each 1 06/13/2023 08/25/2023 Discontinued Comment on above: Use 1 spray in one n ostril as needed for overdose. May repeat every 2 to 3 min in alternating nostrils until medical assistance is available naloxone 4 mg/actuation nasal spray (NARCAN) (7 sources) Start: 4 naloxone 4 mg/actuation nasal spray (NARCAN) Indications: Opioid contract exists Use 1 spray in one nostril as needed for overdose. May repeat every 2 to 3 min in alternating nostrils until medical assistance is available 1 Each 1 01/09/2024 Active ondansetron 8 mg oral tablet (20 sources) Serotonin-3 Receptor Antagonist Start: 3 take 1 tablet by mouth every eight hours as needed ondansetron (ZOFRAN) 8 mg tablet Take 1 tablet by mouth every 8 hours as needed for nausea/vomiting. 90 tablet 1 11/11/2022 Active Start: 10-25-2021 End: 10-21-2022 take 1 tablet by mouth every eight hours as needed ondansetron (ZOFRAN) 8 mg tablet Take 1 tablet by mouth every 8 hours as needed for nausea/vomiting. 90 tablet 1 10/25/2021 10/21/2022 Discontinued Comment on above: Take 1 tablet by cam every 8 hours as needed for nausea/vomiting. oxyCODONE hydrochloride 10 mg oral tablet (20 sources) Opioid Agonist Start: 12-26-19 End: 01-25-20 take 1 tablet by mouth every four hours as needed oxyCODONE IR (ROXICODONE) 10 mg tab Indications: Neoplasm related pain Take 1-2 tablets by mouth every 4 hours as needed for pain for up to 30 days. 360 tablet 0 12/26/2023 Active Start: 11-21-2023 End: 12-21-2023 take 1 tablet by mouth every four hours as needed for pain oxyCODONE (ROXICODONE) 15 mg immediate release tablet Indications: Neuropathy due to chemotherapeutic drug (HCC) , Neoplasm related pain , Encounter for palliative care Take 1 tablet by mouth every 4 hours as needed for pain for up to 30 days. 180 tablet 0 11/21/2023 12/21/2023 Start: 06-13-2023 End: 11-21-2023 take 1 tablet by mouth every six hours as needed for pain oxyCODONE IR (ROXICODONE) 5 mg immediate release tablet Indications: Neoplasm related pain Take 1 tablet by mouth every 6 hours as needed for pain for up to 15 days. 60 tablet 0 10/21/2023 11/05/2023 Start: 06-12-2020 End: 03-28-2021 take 5-10 mg by mouth every six hours Oxycodone Discontinued 5 - 10 MG PO Q6H 60 8 June 12, 2020 March 28, 2021 9:14am Comment on above: Take 1-2 tablets by mouth every 6 hours as needed for pain Take 1 tablet by cam th every 6 hours as needed for pain for up to 15 days. potassium chloride 10 meq extended release oral tablet (20 sources) Start: 2 End: 2 take 1 tablet by mouth once daily potassium chloride (K-TAB) 10 mEq tablet Take 1 tablet by mouth once daily. 30 tablet 3 12/24/2021 03/26/2022 Discontinued (Discontinued by another Health Care Provider) Comment on above: Take 1 tablet by cam th once daily. 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 90 capsule 0 12/26/2023 Active Sotorasib (1 source) Start: 4 take 1 tablet by mouth once daily Sotorasib (Lumakras) 320 mg tablet Active 960 MG PO Daily February 07, 2024 12:00am sotorasib (LUMAKRAS) 320 mg tablet (20 sources) Start: 4 take 3 tablets by mouth once daily sotorasib (LUMAKRAS) 320 mg tablet Take 3 tablets by mouth once daily. 90 tablet 3 02/04/2024 Active Start: 08-25-2023 End: 02-04-2024 take 3 tablets by mouth once daily sotorasib (LUMAKRAS) 320 mg tablet Take 3 tablets by mouth once daily. 90 tablet 3 08/25/2023 02/04/2024 Discontinued Start: 08-25-2023 take 3 tablets by mo uth once daily sotorasib (LUMAKRAS) 320 mg tablet Take 3 tablets by mouth once daily. 90 tablet 3 08/25/2023 Active Start: 05-13-2023 End: 08-25-2023 take 3 tablets by mouth once daily sotorasib (LUMAKRAS) 320 mg tablet Take 3 tablets by mouth once daily. 90 tablet 3 05/13/2023 08/25/2023 Discontinued Start: 05-13-2023 take 3 tablets by mo uth once daily sotorasib (LUMAKRAS) 320 mg tablet Take 3 tablets by mouth once daily. 90 tablet 3 05/13/2023 Active Comment on above: Take 3 tablets by mo uth once daily. sulfamethoxazole 800 mg / trimethoprim 160 mg oral tablet (20 sources) Dihydrofolate Reductase Inhibitor Antibacterial, Sulfonamide Antimicrobial Start: End: take 1 tablet by mouth twice daily sulfamethoxazole-tr imethoprim (BACTRIM DS,SEPTRA DS) 800-160 mg per tablet Take 1 tablet by mouth twice daily. 0 01/18/2022 03/26/2022 Discontinued (Course of therapy completed) Comment on above: Take 1 tablet by cam twice daily. traZODone hydrochloride 50 mg oral tablet (5 sources) Serotonin Reuptake Inhibitor Start: End: take 1 tablet by mouth once daily at bedtime traZODone (DESYREL) 50 mg tablet Indications: Insomnia due to medical condition , Anxiety about health Take 1 tablet by mouth daily at bedtime. 30 tablet 1 01/09/2024 02/08/2024 Active Completed/Discontinued Medications Medication Drug Class(es) Dates Sig (Normalized) Sig (Original) acetaminophen 500 mg oral tablet (4 sources) Start: 10-02-2021 End: 10-22-2021 take 2 tablets by mouth every six hours acetaminophen (TYLENOL) 500 mg tablet Take 2 tablets by mouth every 6 hours. 0 10/02/2021 10/22/2021 Discontinued Comment on above: Take 2 tablets by mo [facility] every 6 hours. acetaminophen 325 mg / oxyCODONE hydrochloride 5 mg oral tablet (20 sources) Opioid Agonist Start: 10-17-2022 End: 06-13-2023 take 1-2 tablets by mouth every four hours as needed for pain oxyCODONE-acetamino phen (PERCOCET) 5-325 mg tablet Indications: Cancer associated pain Take 1 to 2 tablets by mouth every 4 hours as needed for pain. 50 tablet 0 05/13/2023 06/13/2023 Discontinued (Course of therapy completed) Start: 06-07-2020 End: 06-12-2020 take 1 tablet by mouth every six hours Oxycodone-Acetaminophen Discontinued 1 T AB PO Q6H June 07, 2020 1:00am June 12, 2020 11:40am Comment on above: Take 1-2 tablets by mouth every 4 hours as needed for pain. Take 1 to 2 tablets by mouth every 4 hours as needed for pain. albuterol 0.833 mg/ml / ipratropium bromide 0.167 mg/ml inhalation solution (20 sources) Anticholinergic, beta2-Adrenergic Agonist Start: 01-30-20 End: 05-20-20 take 3 mL by inhalation every six hours as needed ipratropium-albuter ol (DUONEB) 0.5 mg-3 mg(2.5 mg base)/3 mL nebu Inhale 3 mL as instructed every 6 hours as needed for wheezing/shortness of breath. 120 Each 3 04/29/2022 05/20/2023 Discontinued Comment on above: Inhale 3 mL as instr ucted every 6 hours as needed for wheezing/shortness of breath. amoxicillin 875 mg oral tablet (9 sources) Penicillin-class Antibacterial Start: 10-15-19 take 1 tablet by mouth every twelve hours amoxicillin (AMOXIL) 875 mg tablet Take 1 tablet by mouth every 12 hours. 0 10/15/2023 Active Start: 02-04-2023 End: 02-15-2023 take 1 capsule by mouth twice daily amoxicillin (AMOXIL) 500 mg capsule Take 500 mg by mouth twice daily. 0 02/06/2023 02/15/2023 Active Comment on above: Take 500 mg by mouth twice daily. Take 1 tablet by cam th every 12 hours. amoxicillin 875 mg / clavulanate 125 mg oral tablet (4 sources) Penicillin-class Antibacterial Start: End: take 1 tablet by mouth twice daily amoxicillin-clavulanat e potassium (AUGMENTIN) 875-125 mg per tablet Take 1 tablet by mouth two times a day for 7 days. 14 tablet 0 05/19/2023 05/20/2023 Discontinued Comment on above: Take 1 tablet by cam two times a day for 7 days. Ciprofloxacin-Dexametha sone (Ciprodex) 0.3-0.1 % drops,suspension (1 source) Start: End: Ciprofloxacin-Dexameth asone (Ciprodex) 0.3-0.1 % drops,suspension Discontinued 4 DROPS EAR-RIGHT Twice daily 7.5 7 February 04, 2023 12:00am February 07, 2024 3:49pm cloNIDine hydrochloride 0.1 mg oral tablet (10 sources) Central alpha-2 Adrenergic Agonist End: take 1 tablet by mouth three times daily cloNIDine HCl (CATAPRES) 0.1 mg tablet Take 0.1 mg by mouth three times daily. 0 12/03/2021 Discontinued (Discontinued by Patient) Comment on above: Take 0.1 mg by mouth three times daily. cyclobenzaprine hydrochloride 10 mg oral tablet (3 sources) Muscle Relaxant Start: End: take 10 mg by mouth three times daily Cyclobenzaprine Discontinued 10 MG PO Three times daily June 12, 2020 1:00am March 28, 2021 9:14am diphenhydrAMINE 12.5 mg/5 mL lidocaine visc 2% MAALOX 200-200-20 mg/5 mL nystatin prednisoLONE 15 mg/5 mL oral liquid 1:1:1:1:1 (CPD) (20 sources) Start: End: take 5 mL by mouth every six hours as needed diphenhydrAMINE 12.5 mg/5 mL lidocaine visc 2% MAALOX 200-200-20 mg/5 mL nystatin prednisoLONE 15 mg/5 mL oral liquid 1:1:1:1:1 (CPD) Swish and Swallow 5 mL by mouth every 6 hours as needed. 300 mL 1 05/08/2023 08/25/2023 Discontinued Start: 05-08-2023 take 5 mL by mouth e very six hours as needed diphenhydrAMINE 12.5 mg/5 mL lidocaine visc 2% MAALOX 200-200-20 mg/5 mL nystatin prednisoLONE 15 mg/5 mL oral liquid 1:1:1:1:1 (CPD) Swish and Swallow 5 mL by mouth every 6 hours as needed. 300 mL 1 05/08/2023 Active Start: 12-24-2022 take 5 mL by mouth e very six hours as needed diphenhydrAMINE 12.5 mg/5 mL lidocaine visc 2% MAALOX 200-200-20 mg/5 mL nystatin prednisoLONE 15 mg/5 mL oral liquid 1:1:1:1:1 (CPD) Take 5 mL by mouth every 6 hours as needed. 300 mL 1 12/24/2022 Active Start: 12-24-2022 take 5 mL by mouth e very six hours as needed diphenhydrAMINE 12.5 mg/5 mL lidocaine visc 2% MAALOX 200-200-20 mg/5 mL nystatin prednisoLONE 15 mg/5 mL oral liquid 1:1:1:1:1 (CPD) Take 5 mL by mouth every 6 hours as needed. Swish and Swallow 250 mL 1 12/24/2022 Active Comment on above: Take 5 mL by mouth e very 6 hours as needed. Swish and Swallow Take 5 mL by mouth e very 6 hours as needed. Swish and Swallow 5 mL by mouth every 6 hours as needed. fluticasone propionate 0.05 mg/actuat metered dose nasal spray (16 sources) Corticosteroid Start: 03-17-20 23 End: 05-20-20 23 take 2 spray(s) nasal route once daily fluticasone (FLONASE) 50 mcg/actuation nasal spray instill 2 (TWO) sprays IN EACH NOSTRIL DAILY 0 03/17/2023 05/20/2023 Discontinued Comment on above: instill 2 (TWO) spra ys IN EACH NOSTRIL DAILY folic acid 1 mg oral tablet (20 sources) Start: 10-30-19 22 End: 03-26-20 22 take 1 tablet by mouth once daily folic acid 1 mg tablet Take 1 tablet by mouth once daily. 90 tablet 1 10/29/2021 03/26/2022 Discontinued (Discontinued by another Health Care Provider) Comment on above: Take 1 tablet by cam once daily. 120 actuat formoterol fumarate 0.0048 mg/actuat / glycopyrrolate 0.009 mg/actuat metered dose inhaler (3 sources) beta2-Adrenergic Agonist Start: 06-07-20 End: 02-07-20 Glycopyrrolate-Form oterol (Bevespi Aerosphere) 9-4.8 mcg HFA aerosol inhaler Discontinued 2 PUFF INHALATION Q12H June 07, 2020 1:00am February 07, 2024 3:49pm isosorbide dinitrate 10 mg oral tablet (20 sources) Nitrate Vasodilator Start: 06-07-20 End: 12-04-19 22 take 1 tablet by mouth once daily in the morning, then take 1 tablet by mouth once isosorbide dinitrate (ISORDIL) 10 mg tablet TAKE 1 TABLET BY MOUTH EVERY MORNING and TAKE 1 TABLET BY MOUTH EVERY afternoon 0 06/07/2021 12/03/2021 Discontinued Start: 03-28-2021 End: 04-12-2021 take 10 mg by mouth twice daily Isosorbide Dinitrate Discontinued 10 MG PO Twice daily March 28, 2021 12:00am April 12, 2021 12:30pm End: 12-03-2021 take 1 tablet by mouth twice daily isosorbide dinitrate (ISORDIL, SORBITRATE) 30 mg tablet Take 30 mg by mouth twice daily. 0 12/03/2021 Discontinued Comment on above: TAKE 1 TABLET BY CAM TH EVERY MORNING and TAKE 1 TABLET BY MOUTH EVERY afternoon Take 30 mg by mouth twice daily. iv contrast (will be provided with radiology test) (7 sources) Start: 10-20-2023 End: 10-21-2023 iv contrast (will be provided with radiology test) CT Chest W -Inject, intravenously, once for 1 dose.No IV access, insert saline lock prior to the beginning of sedation, infusion, injection of imaging exam. Discontinue saline lock post exam. If Pt. has a central line or IVAD, may access for administration according to line specific nursing protocol. Once exam is complete flush line and de-access according to line specific nursing protocol in the CT contrast administration guidelines link. 1 Each 0 10/20/2023 10/21/2023 Start: 10-20-2023 End: 10-21-2023 iv contrast (will be provide d with radiology test) CT Chest W -Inject, intravenously, once for 1 dose.No IV access, insert saline lock prior to the beginning of sedation, infusion, injection of imaging exam. Discontinue saline lock post exam. If Pt. has a central line or IVAD, may access for administration according to line specific nursing protocol. Once exam is complete flush line and de-access according to line specific nursing protocol in the CT contrast administration guidelines link. 1 Each 0 10/20/2023 10/21/2023 Active Start: 08-20-2022 End: 08-21-2022 iv contrast (will be provide d with radiology test) CT Chest ABD/PEL-Inject, intravenously, once for 1 dose.No IV access, insert saline lock prior to the beginning of sedation, infusion, injection of imaging exam. Discontinue saline lock post exam. If Pt. has a central line or IVAD, may access for administration according to line specific nursing protocol. Once exam is complete flush line and de-access according to line specific nursing protocol in the CT contrast administration guidelines link. 1 Each 0 08/20/2022 08/21/2022 Active Start: 06-11-2022 End: 06-12-2022 iv contrast (will be provide d with radiology test) CT Chest W -Inject, intravenously, once for 1 dose.No IV access, insert saline lock prior to the beginning of sedation, infusion, injection of imaging exam. Discontinue saline lock post exam. If Pt. has a central line or IVAD, may access for administration according to line specific nursing protocol. Once exam is complete flush line and de-access according to line specific nursing protocol in the CT contrast administration guidelines link. 1 Each 0 06/11/2022 06/12/2022 Start: 04-29-2022 End: 04-30-2022 iv contrast (will be provide d with radiology test) MRI LSP Inject, intravenously, once for 1 dose. No IV access, insert saline lock prior to the beginning of sedation, infusion, injection of imaging exam. Discontinue saline lock post exam. If Pt. has a central line or IVAD, may access for administration according to line specific nursing protocol. Once exam is complete flush line and de-access according to line specific nursing protocol in the MR contrast administration guidelines link. 1 Each 0 04/29/2022 04/30/2022 Active Start: 10-19-2021 End: 10-20-2021 inject 1 dose intravenously once iv contrast (will be provided with radiology test) Indications: Malignant neoplasm of upper lobe of left lung (HCC) MRI Brain Inject, intravenously, once for 1 dose.No IV access, insert saline lock prior to beginning of sedation, infusion, injection of imaging exam.Discontinue saline lock post exam. If Pt. has a central line or IVAD, may access for administration according to line specific nursing protocol.Once exam is complete flush line and de-access according to line specific nursing protocol in the MR contrast administration guidelines link 1 Each 0 10/19/2021 10/20/2021 Comment on above: MRI Brain Inject, in travenously, once for 1 dose.No IV access, insert saline lock prior to beginning of sedation, infusion, injection of imaging exam.Discontinue saline lock post exam. If Pt. has a central line or IVAD, may access for administration according to line specific nursing protocol.Once exam is complete flush line and de-access according to line specific nursing protocol in the MR contrast administration guidelines link MRI LSP Inject, intr avenously, once for 1 dose. No IV access, insert saline lock prior to the beginning of sedation, infusion, injection of imaging exam. Discontinue saline lock post exam. If Pt. has a central line or IVAD, may access for administration according to line specific nursing protocol. Once exam is complete flush line and de-access according to line specific nursing protocol in the MR contrast administration guidelines link. CT Chest W -Inject, intravenously, once for 1 dose.No IV access, insert saline lock prior to the beginning of sedation, infusion, injection of imaging exam. Discontinue saline lock post exam. If Pt. has a central line or IVAD, may access for administration according to line specific nursing protocol. Once exam is complete flush line and de-access according to line specific nursing protocol in the CT contrast administration guidelines link. CT Chest ABD/PEL-Inj ect, intravenously, once for 1 dose.No IV access, insert saline lock prior to the beginning of sedation, infusion, injection of imaging exam. Discontinue saline lock post exam. If Pt. has a central line or IVAD, may access for administration according to line specific nursing protocol. Once exam is complete flush line and de-access according to line specific nursing protocol in the CT contrast administration guidelines link. ketoconazole 20 mg/ml topical cream (20 sources) Azole Antifungal Start: End: ketoconazole (NIZORAL) 2 % cream mix with mometasone and APPLY TO THE AFFECTED AREA(S) TWICE DAILY for 30 days 0 04/28/2023 08/25/2023 Discontinued Comment on above: mix with mometasone and APPLY TO THE AFFECTED AREA(S) TWICE DAILY for 30 days lidocaine 0.04 mg/mg medicated patch (4 sources) Antiarrhythmic, Amide Local Anesthetic Start: End: apply 1 dose transdermal route once daily lidocaine (SALONPAS) 4 % patch Apply 1 Patch as directed once daily. 0 10/03/2021 10/22/2021 Discontinued (Discontinued by another Health Care Provider) Comment on above: Apply 1 Patch as dir ected once daily. metoprolol tartrate 25 mg oral tablet (20 sources) beta-Adrenergic Melissa Start: End: take 1 tablet by mouth once daily metoprolol tartrate, short acting, (LOPRESSOR) 25 mg tablet Take 25 mg by mouth once daily. 0 06/07/2020 12/03/2021 Discontinued Start: 06-07-2020 take 50 mg by mouth twice flaquita y Metoprolol Tartrate Active 50 MG PO Twice daily June 07, 2020 1:00am metoprolol tartr ate, short acting, (LOPRESSOR) 25 mg tablet Take 50 mg by mouth twice daily. 0 Active End: 12-03-2021 take 1 tablet by mouth twice daily metoprolol tartrate, short acting, (LOPRESSOR) 50 mg tablet Take 50 mg by mouth twice daily. 0 12/03/2021 Discontinued Comment on above: metoprolol tartrate 25 mg tablet Take 25 mg by mouth once daily. Take 50 mg by mouth twice daily. mometasone furoate 1 mg/ml topical cream (20 sources) Corticosteroid Start: 04-28-2023 End: 08-25-2023 mometasone (ELOCON) 0.1 % cream APPLY TO THE AFFECTED AREA(S) TWICE DAILY up to 3 (THREE) weeks NEEDED 0 04/28/2023 08/25/2023 Discontinued Comment on above: APPLY TO THE AFFECTE D AREA(S) TWICE DAILY up to 3 (THREE) weeks NEEDED mupirocin 0.02 mg/mg topical ointment (20 sources) RNA Synthetase Inhibitor Antibacterial End: 10-21-2022 mupirocin (BACTROBAN) 2 % ointment mupirocin 2 % topical ointment APPLY TO THE AFFECTED AREA(S) THREE TIMES DAILY NEEDED 0 10/21/2022 Discontinued Comment on above: mupirocin 2 % topica l ointment APPLY TO THE AFFECTED AREA(S) THREE TIMES DAILY NEEDED Nebulizer and Compressor For Neb (20 sources) Start: 04-01-2022 End: 05-20-2023 Nebulizer and Compressor For Neb 1 Each as needed. Use as directed. 1 Each 0 04/01/2022 05/20/2023 Discontinued Start: 04-01-2022 Nebulizer and Compressor For Neb 1 Each as needed. Use as directed. 1 Each 0 04/01/2022 Active Start: 01-29-2022 End: 04-01-2022 Nebulizer and Compressor For Neb 1 Each as needed. Use as directed. 1 Each 0 01/29/2022 04/01/2022 Discontinued Start: 01-29-2022 Nebulizer and Compressor For Neb 1 Each as needed. Use as directed. 1 Each 0 01/29/2022 Active Comment on above: 1 Each as needed. Us e as directed. nicotine 2 mg chewing gum (4 sources) Cholinergic Nicotinic Agonist Start: 2 End: 2 take 2 mg by mouth every two hours as needed nicotine polacrilex (NICORETTE) 2 mg gum Take 1 Each by mouth every 2 hours as needed. 150 Each 1 09/11/2021 10/22/2021 Discontinued Comment on above: Take 1 Each by mouth every 2 hours as needed. OLANZapine 5 mg oral tablet (20 sources) Atypical Antipsychotic Start: 4 End: 4 take 1 tablet by mouth once daily at bedtime OLANZapine (ZYPREXA) 5 mg tablet Indications: Insomnia due to medical condition , Anorexia Take 1 tablet by mouth daily at bedtime. 30 tablet 3 10/20/2023 12/23/2023 Discontinued Start: 05-16-2023 End: 10-11-2023 take 1 tablet by mouth once daily at bedtime OLANZapine (ZYPREXA) 5 mg tablet Indications: Insomnia due to medical condition , Anorexia Take 1 tablet by mouth daily at bedtime. 30 tablet 3 06/13/2023 08/25/2023 Discontinued Start: 01-17-2023 End: 05-16-2023 take 1 tablet by mouth once daily at bedtime OLANZapine orally disintegrating (ZYPREXA ZYDIS) 5 mg disintegrating tablet Take 1 tablet by mouth daily at bedtime. 30 tablet 0 01/17/2023 05/16/2023 Discontinued Comment on above: Take 1 tablet by cam th daily at bedtime. 10 actuat olodaterol 0.0025 mg/actuat / tiotropium 0.0025 mg/actuat inhalation spray (20 sources) Anticholinergic, beta2-Adrenergic Agonist Start: 02-22-2022 End: 10-21-2022 STIOLTO RESPIMAT 2.5-2.5 mcg/actuation INHALE TWO (2) PUFFS BY MOUTH ONCE DAILY 4 g 10 02/22/2022 10/21/2022 Discontinued Start: 07-24-2021 End: 02-22-2022 tiotropium-olodaterol (STIOL TO RESPIMAT) 2.5-2.5 mcg/actuation Inhale 2 Puffs as instructed once daily. 4 g 5 07/24/2021 01/29/2022 Discontinued Comment on above: Inhale 2 Puffs as in structed once daily. INHALE TWO (2) PUFFS BY MOUTH ONCE DAILY polyethylene glycol 3350 18396 mg powder for oral solution (4 sources) Osmotic Laxative Start: 10-04-19 End: 10-23-19 polyethylene glycol 3350 (MIRALAX, GLYCOLAX) 17 gram packet Take 1 Packet by mouth once daily. Dissolve dose in 4 - 8 ounces of liquid and take as directed. 0 10/03/2021 10/22/2021 Discontinued (Discontinued by another Health Care Provider) Comment on above: Take 1 Packet by cam th once daily. Dissolve dose in 4 - 8 ounces of liquid and take as directed. potassium bicarbonate 25 meq effervescent oral tablet (20 sources) Start: 04-08-20 End: 09-22-19 take 1 tablet by mouth once daily Potassium Bicarb-Citric Acid (K-LYTE) 25 mEq disintegrating tablet Take 1 tablet by mouth once daily. 30 tablet 1 04/08/2023 09/22/2023 Discontinued Comment on above: Take 1 tablet by [facility] once daily. predniSONE 10 mg oral tablet (20 sources) Start: 08-20-19 End: 10-22-19 take 1 tablet by mouth once daily, then take 2 tablets by mouth once daily, then take 1 tablet by mouth once daily predniSONE (DELTASONE) 10 mg tablet Take 1 tablet by mouth once daily. Take 2 daily x 1 week, then 1 daily x 1 week 21 tablet 0 08/20/2022 10/21/2022 Discontinued Start: 12-19-2021 End: 03-26-2022 predniSONE (DELTASONE) 10 mg tablet DAY 1 TAKE 7 TABLETS BY MOUTH, DAY 2 TAKE 6 TABLETS, DAY 3 TAKE 5 TABLETS, DAY 4 TAKE 4 TABLETS, DAY 5 TAKE 3 TABLETS, DAY 6 TAKE 2 TABLETS, DAY 7 TAKE 1 TABLET 0 12/19/2021 03/26/2022 Discontinued (Course of therapy completed) Start: 06-12-2020 End: 03-28-2021 Prednisone Discontinued 1 do se pk PO per package directions June 12, 2020 1:00am March 28, 2021 9:14am take 4 tabs for 3 days then take 3 tabs for 3 days then take 2 tabs for 3 days then take 1 tab for 3 days Comment on above: DAY 1 TAKE 7 TABLETS BY MOUTH, DAY 2 TAKE 6 TABLETS, DAY 3 TAKE 5 TABLETS, DAY 4 TAKE 4 TABLETS, DAY 5 TAKE 3 TABLETS, DAY 6 TAKE 2 TABLETS, DAY 7 TAKE 1 TABLET Take 1 tablet by [facility] once daily. Take 2 daily x 1 week, then 1 daily x 1 week prochlorperazine 10 mg oral tablet (20 sources) Phenothiazine Start: End: take 1 tablet by mouth every six hours as needed prochlorperazine (COMPAZINE) 10 mg tablet Take 1 tablet by mouth every 6 hours as needed. 100 tablet 1 10/25/2021 03/26/2022 Discontinued (Discontinued by Patient) Comment on above: Take 1 tablet by cam th every 6 hours as needed. sertraline 25 mg oral tablet (20 sources) Serotonin Reuptake Inhibitor Start: End: take 1 tablet by mouth once daily sertraline (ZOLOFT) 25 mg tablet Take 1 tablet by mouth once daily. 30 tablet 3 01/17/2023 05/20/2023 Discontinued Comment on above: Take 1 tablet by cam th once daily. 1000 ml sodium chloride 9 mg/ml injection (4 sources) Start: End: NaCl 0.9% 1,000 mL iv bolus Start: 11-25-2023 End: 11-25-2023 NaCl 0.9% 1,000 mL iv bolus traMADol hydrochloride 50 mg oral tablet (20 sources) Opioid Agonist Start: 04-08-2022 End: 10-21-2022 take 1 tablet by mouth every four hours as needed for pain traMADol (ULTRAM) 50 mg tablet Indications: Cancer related pain Take 1 tablet by mouth every 4 hours as needed for pain. 30 tablet 0 04/08/2022 10/21/2022 Discontinued Comment on above: Take 1 tablet by cam th every 4 hours as needed for pain. Problems Active Problems Problem Classification Problem Date Documented Date Episodic/Chronic Acute and chronic tonsillitis (10 sources) Mass of palatine tonsil; Translations: [Other chronic diseases of tonsils and adenoids] Onset: 3 05-27-2023 Chronic Anxiety disorders (9 sources) Generalized anxiety disorder; Translations: [Anxiety] Onset: 2 02-19-2023 Chronic Cancer of bronchus; lung (20 sources) Malignant neoplasm of upper lobe of left lung; Translations: [Malignant neoplasm of upper lobe, left bronchus or lung] Onset: 2 Chronic Cancer of bronchus; lung (2 sources) History of malignant neoplasm of thoracic cavity structure; Translations: [Personal history of other malignant neoplasm of bronchus and lung] 01-03-2023 Episodic Cancer of head and neck (4 sources) Malignant tumor of oropharynx; Translations: [Malignant neoplasm of oropharynx, unspecified] Onset: 3 05-27-2023 Chronic Cancer of thyroid (1 source) Malignant tumor of thyroid gland; Translations: [Malignant neoplasm of thyroid gland] Chronic Chronic obstructive pulmonary disease and bronchiectasis (20 sources) Centriacinar emphysema; Translations: [Centrilobular emphysema] Onset: 2 10-04-2021 Chronic Complication of device; implant or graft (6 sources) Atherosclerosis of coronary artery bypass graft(s) without angina pectoris; Translations: [ATS CA BP GRAFT NO ANGINA PECTORIS] Onset: 3 Chronic Complications of surgical procedures or medical care (9 sources) Anemia due to antineoplastic chemotherapy; Translations: [Antineoplastic chemotherapy induced anemia] Onset: 3 Chronic Coronary atherosclerosis and other heart disease (20 sources) Coronary atherosclerosis; Translations: [Atherosclerotic heart disease of [place] coronary artery without angina pectoris] Onset: 2 10-04-2021 Chronic Coronary atherosclerosis and other heart disease (1 source) Presence of aortocoronary bypass graft; Translations: [PRESENCE AORTOCORONARY BYPASS GRAFT] Onset: 3 Episodic Disorders of lipid metabolism (1 source) Pure hypercholesterolemia, unspecified; Translations: [PURE HYPERCHOLESTEROLEMIA UNSPEC] Onset: 3 Chronic Essential hypertension (20 sources) Essential hypertension; Translations: [Essential (primary) hypertension] Onset: 2 10-04-2021 Chronic Headache; including migraine (4 sources) Headache; including migraine; Translations: [HEADACHE UNSPECIFIED] Onset: 2 Hypertension with complications and secondary hypertension (1 source) Hypertensive urgency; Translations: [HYPERTENSIVE URGENCY] Onset: 2 Chronic Miscellaneous mental health disorders (1 source) Anxiety about body function or health; Translations: [Other symptoms and signs involving emotional state] 01-09-2024 Episodic Nausea and vomiting (3 sources) Nausea; Translations: [Nausea] 05-16-2023 Episodic Nutritional deficiencies (20 sources) Deficiency of macronutrients; Translations: [Unspecified protein-calorie malnutrition] Onset: 3 Chronic Occlusion or stenosis of precerebral arteries (20 sources) Bilateral stenosis of carotid arteries; Translations: [Occlusion and stenosis of bilateral carotid arteries] Onset: 2 10-04-2021 Chronic Other aftercare (1 source) Surgical follow-up; Translations: [Encounter for follow-up examination after completed treatment for conditions other than malignant neoplasm] Episodic Other aftercare (1 source) buttermaker continuous churn (current) use of aspirin; Translations: [CARRIAGE FEEDER CURRENT USE OF ASPIRIN] Onset: 3 Episodic Other aftercare (1 source) buttermaker continuous churn (current) use of antithrombotics/antiplate lets; Translations: [CARRIAGE FEEDER ANTITHROMBOT/ANTIPLATLETS ] Onset: 3 Episodic Other aftercare (1 source) Other fpc (current) drug therapy; Translations: [OTH [facility] CURRENT DRUG THERAPY] Onset: 3 Episodic Other aftercare (3 sources) Under care of palliative care physician; Translations: [Encounter for palliative care] 05-16-2023 Episodic Other aftercare (2 sources) Drug therapy finding; Translations: [buttermaker continuous churn (current) use of opiate analgesic] 06-13-2023 Episodic Other aftercare (1 source) Patient encounter status; Translations: [Encounter for palliative care] 11-21-2023 Episodic Other connective tissue disease (1 source) Swelling of upper limb; Translations: [Other specified soft tissue disorders] 02-03-2024 Episodic Other ear and sense organ disorders (1 source) Otitis externa; Translations: [Unspecified otitis externa, unspecified ear] 02-12-2023 Chronic Other lower respiratory disease (2 sources) Nodule of lung; Translations: [Solitary pulmonary nodule] Episodic Other lower respiratory disease (3 sources) Lung mass; Translations: [Other nonspecific abnormal finding of lung field] 04-13-2021 Episodic Other lower respiratory disease (2 sources) Multiple nodules of lung; Translations: [Other nonspecific abnormal finding of lung field] Episodic Other lower respiratory disease (2 sources) Hemoptysis; Translations: [Hemoptysis] 01-03-2023 Episodic Other lower respiratory disease (1 source) Dyspnea; Translations: [Shortness of breath] 02-10-2024 Episodic Other nervous system disorders (20 sources) Pain due to neoplastic disease; Translations: [Neoplasm related pain (acute) (chronic)] Chronic Other nervous system disorders (3 sources) Neuropathy; Translations: [Drug-induced polyneuropathy] 05-16-2023 Chronic Other nervous system disorders (1 source) Neoplasm related pain (acute) (chronic); Translations: [Cancer related pain] Onset: 3 Chronic Other non-traumatic joint disorders (4 sources) Pain in left shoulder; Translations: [PAIN IN LEFT SHOULDER] Onset: 3 Episodic Other non-traumatic joint disorders (1 source) Chronic pain of left upper limb; Translations: [Pain in left shoulder] 11-21-2023 Episodic Other nutritional; endocrine; and metabolic disorders (3 sources) Loss of appetite; Translations: [Anorexia] 05-16-2023 Episodic Other nutritional; endocrine; and metabolic disorders (1 source) Abnormal weight loss; Translations: [Abnormal weight loss] 11-04-2023 Episodic Other nutritional; endocrine; and metabolic disorders (1 source) Unintentional weight loss; Translations: [Abnormal weight loss] 11-21-2023 Episodic Other screening for suspected conditions (not mental disorders or infectious disease) (1 source) CT of chest abnormal; Translations: [Abnormal findings on diagnostic imaging of other specified body structures] Chronic Other skin disorders (4 sources) Eruption; Translations: [Rash and other nonspecific skin eruption] Episodic Otitis media and related conditions (1 source) Otitis media; Translations: [Otitis media, unspecified, unspecified ear] 02-12-2023 Episodic Peripheral and visceral atherosclerosis (20 sources) Peripheral vascular disease, unspecified; Translations: [Peripheral vascular disease, unspecified] Onset: 2 10-04-2021 Chronic Residual codes; unclassified (5 sources) Insomnia co-occurrent and due to medical condition; Translations: [Insomnia due to medical condition] 05-16-2023 Chronic Residual codes; unclassified (1 source) Acquired absence of lung [part of]; Translations: [ACQUIRED ABSENCE OF LUNG] Onset: 3 Episodic Screening and history of mental health and substance abuse codes (1 source) Personal history of nicotine dependence; Translations: [PERSONAL HISTORY OF NICOTINE DEPEND] Onset: 3 Episodic Skin and subcutaneous tissue infections (4 sources) Infection of skin; Translations: [Local infection of the skin and subcutaneous tissue, unspecified] Episodic Substance-related disorders (20 sources) Nicotine dependence; Translations: [Nicotine dependence, unspecified, uncomplicated] Onset: 2 10-03-2021 Chronic Thyroid disorders (10 sources) Hypothyroidism caused by drug; Translations: [Hypothyroidism due to medicaments and other exogenous substances] Onset: 4 06-02-2023 Chronic Unclassified (1 source) CONTACT W/AND (SUSP) EXPOS COVID-19; Translations: [CONTACT W/AND (SUSP) EXPOS COVID-19] Onset: 2 Unclassified (1 source) Lung Cancer Onset: 3 Past or Other Problems Problem Classification Problem Date Documented Date Episodic/Chronic Acute and unspecified renal failure (13 sources) Acute injury of kidney; Translations: [Acute kidney failure, unspecified] Onset: 11-21-2021 Episodic Administrative/socia l admission (20 sources) Discharge status; Translations: [Encounter for administrative examinations, unspecified] Onset: 09-27-2021 10-04-2021 Episodic Cardiac dysrhythmias (4 sources) Tachycardia, unspecified; Translations: [TACHYCARDIA UNSPECIFIED] Onset: 12-07-2021 Episodic Deficiency and other anemia (1 source) Anemia, unspecified; Translations: [ANEMIA UNSPECIFIED] Onset: 02-12-2022 Episodic E Codes: Adverse effects of medical drugs (1 source) Adverse effect of antineoplastic and immunosuppressive drugs, initial encounter; Translations: [Anemia due to antineoplastic chemotherapy] Onset: 04-01-2023 Episodic Malaise and fatigue (7 sources) Malaise and fatigue; Translations: [Other malaise] Onset: 03-11-2023 Episodic Other circulatory disease (1 source) Hypotension, unspecified; Translations: [HYPOTENSION UNSPECIFIED] Onset: 12-13-2021 Episodic Other lower respiratory disease (1 source) Shortness of breath; Translations: [SHORTNESS OF BREATH] Onset: 11-21-2021 Episodic Other male genital disorders (1 source) Disorder of prostate, unspecified; Translations: [DISORDER OF PROSTATE UNSPECIFIED] Onset: 12-13-2021 Episodic Other nervous system disorders (20 sources) Postoperative pain ; Translations: [Other acute postprocedural pain] Onset: 09-26-2021 10-04-2021 Episodic Other non-traumatic joint disorders (4 sources) Pain in right hip; Translations: [PAIN IN RIGHT HIP] Onset: 05-01-2022 Episodic Other nutritional; endocrine; and metabolic disorders (1 source) Abnormal weight loss; Translations: [Abnormal weight loss] Onset: 11-04-2023 Episodic Other screening for suspected conditions (not mental disorders or infectious disease) (11 sources) Other specified abnormal findings of blood chemistry; Translations: [Liver function tests abnormal] Onset: 11-21-2021 Episodic Other skin disorders (1 source) Rash and other nonspecific skin eruption; Translations: [Skin rash] Onset: 04-01-2023 Episodic Residual codes; unclassified (20 sources) Current drinker; Translations: [Other specified health status] Onset: 09-26-2021 10-04-2021 Episodic Spondylosis; intervertebral disc disorders; other back problems (5 sources) Lumbago with sciatica, unspecified side; Translations: [LUMBAGO WITH SCIATICA UNS SIDE] Onset: 05-04-2022 Episodic NEGATED: Highlighted row has been ruled out!Unclassified (2 sources) No known active problems 01-17-2023 Results Test Name Value Interpretation Reference Range Facil ity CNPNon 02-16-2024 CNPN Normal [facility] CNPNon 02-10-2024 CNPN Normal [facility] XR chest 2V*on 02-08-2024 XR chest 2V* [facility] [place] [address] [place] [address] XRay Report Signed Patient: Pedro Gu MR#: [id number] : 1955 Acct:[id number] Age/Sex: 68 / M ADM Date: 02/07/24 Loc: ER Room: Type: [facility] ER Attending Dr: Copies to: Luis Dominguez MD Ordering Provider: Luis Dominguez MD Date of Service: 02/07/24 XR/XR chest 2V*: Shortness of Breath/Dyspnea Plain film chest 2 view HISTORY: Shortness of breath COMPARISON: 01/03/23 FINDINGS: SUPPORT DEVICES: None POSTSURGICAL CHANGES: Sternal wires redemonstrated HEART: Within normal limits PULMONARY TRIXIE: Within normal limits MEDIASTINUM: Unremarkable LUNGS AND PLEURA: No acute lung process, pleural effusion or pneumothorax identified. Similar post therapy changes of LEFT lung cancer. BONY STRUCTURES: Intact ADDITIONAL FINDINGS None XR/XR chest 2V* IMPRESSION: No acute process. Stable LEFT lung cancer post therapy changes. Impression dictated by: Buzz Barroso M.D.02/08/2024 9:12 AM Dictation Location: [place] [address] Transcribed By: SEA 02/08/24911 Dictated By: Buzz Barroso DO 02/08/24909 Signed By: 02/08/24911 Normal [facility] Alanine aminotransferase [En zymatic activity/volume] in Serum or PlasmaOrdered By: Luis Dominguez on 02-07-2024 ALT [Catalytic activity/Vol] 10 U/L Normal 7-52 [facility] [place] Comment on above: Performed By: #### H S TROP, SCAN CBC, CMP, BNP, CK #### [address] Albumin [Mass/volume] in Ser um or Plasma by Bromocresol green (BCG) dye binding methoOrdered By: Luis Dominguez on 02-07-2024 Albumin BCG dye [Mass/Vol] 3.6 g/dL 3.5-5.7 [facility] Alkaline phosphatase [Enzyma tic activity/volume] in Serum or PlasmaOrdered By: Luis Dominguez on 02-07-2024 ALP [Catalytic activity/Vol] 38 U/L Normal 34-104 [facility] Comment on above: Performed By: #### H S TROP, SCAN CBC, CMP, BNP, CK #### [facility] [address] [place] [address] Aspartate aminotransferase [ Enzymatic activity/volume] in Serum or PlasmaOrdered By: Luis Dominguez on 02-07-2024 AST [Catalytic activity/Vol] 20 U/L Normal 13-39 [facility] Comment on above: Performed By: #### H S TROP, SCAN CBC, CMP, BNP, CK #### [facility] [address] [place] [address] [place] Automated basophil %Ordered By: Luis Dominguez on 02-07-2024 Basophils/100 WBC (Bld) 0.7 % Normal . [facility] Comment on above: Performed By: #### H S TROP, SCAN CBC, CMP, BNP, CK #### [address] Automated basophil countOrde red By: Luis Dominguez on 02-07-2024 Basophils (Bld) [#/Vol] 0.0 10*3/uL Normal 0.0-0.2 [facility] Comment on above: Performed By: #### H S TROP, SCAN CBC, CMP, BNP, CK #### [address] Automated blood monocyte cou ntOrdered By: Luis Dominguez on 02-07-2024 Monocytes (Bld) [#/Vol] 0.4 10*3/uL Normal 0.0-0.8 [facility] Comment on above: Performed By: #### H S TROP, SCAN CBC, CMP, BNP, CK #### [address] Automated eosinophil %Ordere d By: Luis Dominguez on 02-07-2024 Eosinophils/100 WBC (Bld) 0.1 % Normal . [facility] Comment on above: Performed By: #### H S TROP, SCAN CBC, CMP, BNP, CK #### [address] Automated eosinophil countOr dered By: Luis Dominguez on 02-07-2024 Eosinophils (Bld) [#/Vol] 0.0 10*3/uL Normal 0.0-0.45 [facility] Comment on above: Performed By: #### H S TROP, SCAN CBC, CMP, BNP, CK #### [address] Automated monocyte %Ordered By: Luis Dominguez on 02-07-2024 Monocytes/100 WBC (Bld) 9.5 % Normal . [facility] Comment on above: Performed By: #### H S TROP, SCAN CBC, CMP, BNP, CK #### [address] Automated neutrophil %Ordere d By: Luis Dominguez on 02-07-2024 Neutrophils/100 WBC (Bld) 75.4 % Normal . [facility] Comment on above: Performed By: #### H S TROP, SCAN CBC, CMP, BNP, CK #### [facility] [address] [place] [address] BNP ser/plasOrdered By: Luis Dominguez on 02-07-2024 Natriuretic peptide B (Bld) [Mass/Vol] 123.0 pg/mL High 5-100 [facility] Comment on above: Result Comment: PERF ORMED BY: [place] [address] PATHOLOGIST SIDE PANEL HANGER ALEX CROWLEY M.D. Performed By: #### H S TROP, SCAN CBC, CMP, BNP, CK #### [address] Bilirubin.total [Mass/volume ] in Serum or PlasmaOrdered By: Luis Dominguez on 02-07-2024 Bilirubin [Mass/Vol] 0.7 mg/dL Normal 0.3-1.0 [facility] Comment on above: Performed By: #### H S TROP, SCAN CBC, CMP, BNP, CK #### [address] Calcium [Mass/volume] in Ser um or PlasmaOrdered By: Luis Dominguez on 02-07-2024 Calcium [Mass/Vol] 9.4 mg/dL Normal 8.6-10.3 [facility] Comment on above: Performed By: #### H S TROP, SCAN CBC, CMP, BNP, CK #### [facility] [address] [place] [address] [place] Carbon dioxide, total [Moles /volume] in Serum or PlasmaOrdered By: Luis Dominguez on 02-07-2024 CO2 [Moles/Vol] 23.7 mmol/L Normal 21.0-31.0 [facility] Comment on above: Performed By: #### H S TROP, SCAN CBC, CMP, BNP, CK #### [place] [address] [place] Chloride [Moles/volume] in S juanpablo or PlasmaOrdered By: Luis Dominguez on 02-07-2024 Chloride [Moles/Vol] 100 mmol/L Normal 98-107 [facility] Comment on above: Performed By: #### H S TROP, SCAN CBC, CMP, BNP, CK #### [address] Comprehensive Metabolic Pane tim 02-07-2024 Albumin [Mass/Vol] 3.6 g/dL Normal 3.5-5.7 [facility] Comment on above: Performed By: #### H S TROP, SCAN CBC, CMP, BNP, CK #### [address] Creatinine Clr Calc Pharmacy 47.99 Normal [facility] Comment on above: Result Comment: PERF ORMED BY: [place] [address] PATHOLOGIST SIDE PANEL HANGER ALEX CROWLEY M.D. Performed By: #### H S TROP, SCAN CBC, CMP, BNP, CK #### [address] GFR/1.73 sq M.predicted MDRD (S/P/Bld) [Vol rate/Area] mL/min/{1.73_m2} Normal [facility] Comment on above: Performed By: #### H S TROP, SCAN CBC, CMP, BNP, CK #### [address] Creatine kinase [Enzymatic a ctivity/volume] in Serum or PlasmaOrdered By: Luis Dominguez on 02-07-2024 CK [Catalytic activity/Vol] 54 U/L Normal 30-223 [facility] Comment on above: Performed By: #### H S TROP, SCAN CBC, CMP, BNP, CK #### [address] Creatinine [Mass/volume] in Serum or PlasmaOrdered By: Luis Dominguez on 02-07-2024 Creatinine [Mass/Vol] 1.12 mg/dL Normal 0.70-1.30 [facility] Comment on above: Performed By: #### H S TROP, SCAN CBC, CMP, BNP, CK #### [address] ECG 12 lead ECGon 02-07-2024 ECG 12 lead ECG [facility] [place] [address] [place] [address] Electrocardiograph Report Signed Patient: Pedro Gu MR#: [id number] : 1955 Acct:[id number] Age/Sex: 68 / M ADM Date: 02/07/24 Loc: ER Room: Type: [facility] ER Attending Dr: Ordering Provider: Luis Dominguez MD Date of Service: 02/07/24 ECG/ECG 12 lead ECG: Shortness of Breath/Dyspnea Copies to: Test Reason : Blood Pressure : */* mmHG Vent. Rate : 86 BPM Atrial Rate : 86 BPM P-R Int : 134 ms QRS Dur : 90 ms QT Int : 396 ms P-R-T Axes : 72 95 84 degrees QTcB Int : 473 ms Normal sinus rhythm Possible Left atrial enlargement Rightward axis Borderline ECG When compared with ECG of 04-Feb-2023 10:34, premature ventricular complexes are no longer present Confirmed by LUIS DOMINGUEZ MD ([id number]) on 02/08/2024 12:20:22 AM Referred By: Electronically Signed By: LUIS DOMINGUEZ MD Transcribed By: MUS Signed By Luis Dominguez MD 02/08/24 0020 Normal [facility] Erythrocyte distribution wid th [Ratio] by Automated countOrdered By: Luis Dominguez on 02-07-2024 Erythrocyte distribution width (RBC) [Ratio] 14.9 % High 12.0-14.8 [facility] Comment on above: Performed By: #### H S TROP, SCAN CBC, CMP, BNP, CK #### [facility] [address] [place] [address] [place] Erythrocytes [#/volume] in B lood by Automated countOrdered By: Luis Dominguez on 02-07-2024 RBC (Bld) [#/Vol] 3.76 10*6/uL Low 3.90-5.60 [facility] Comment on above: Performed By: #### H S TROP, SCAN CBC, CMP, BNP, CK #### [facility] [address] [place], [place] [id number] [place] Glucose [Mass/volume] in Ser um or PlasmaOrdered By: Luis Dominguez on 02-07-2024 Glucose [Mass/Vol] 168 mg/dL High 70-100 [facility] Comment on above: ADA recommended refe rence rangeRandom Glucose Reference Range is dependent on time and content of last meal. Glucose of more than 200 mg/dL in a nonstressed, ambulatory subject supports the diagnosis of Diabetes Mellitus. Result Comment: [place] om Glucose Reference Range is dependent on time and content of last meal. Glucose of more than 200 mg/dL in a nonstressed, ambulatory subject supports the diagnosis of Diabetes Mellitus. ADA recommended reference range Performed By: #### H S TROP, SCAN CBC, CMP, BNP, CK #### [address] Hematocrit [Volume Fraction] of Blood by Automated countOrdered By: Luis Dominguez on 02-07-2024 Hematocrit (Bld) [Volume fraction] 35.7 % Low 38.8-50.0 [facility] Comment on above: Performed By: #### H S TROP, SCAN CBC, CMP, BNP, CK #### [address] Hemoglobin [Mass/volume] in BloodOrdered By: Luis Dominguez on 02-07-2024 Hemoglobin (Bld) [Mass/Vol] 12.1 g/dL Low 13.0-17.0 [facility] Comment on above: Performed By: #### H S TROP, SCAN CBC, CMP, BNP, CK #### [address] Leukocytes [#/volume] correc nani for nucleated erythrocytes in Blood by Automated counOrdered By: Luis Dominguez on 02-07-2024 WBC corrected for nucl RBC Auto (Bld) [#/Vol] 4.0 10*3/uL Low 4.1-10.5 [facility] Leukocytes [#/volume] in Blo od by Automated countOrdered By: Luis Dominguez on 02-07-2024 WBC (Bld) [#/Vol] 4.0 10*3/uL Low 4.1-10.5 [facility] Comment on above: Performed By: #### H S TROP, SCAN CBC, CMP, BNP, CK #### [address] Lymphocytes [#/volume] in Bl ood by Automated countOrdered By: Luis Dominguez on 02-07-2024 Lymphocytes (Bld) [#/Vol] 0.6 10*3/uL Low 1.00-4.8 [facility] Comment on above: Performed By: #### H S TROP, SCAN CBC, CMP, BNP, CK #### [facility] [address] [place] [address] [place] Lymphocytes/100 leukocytes i n Blood by Automated countOrdered By: Luis Dominguez on 02-07-2024 Lymphocytes/100 WBC (Bld) 14.3 % Normal . [facility] Comment on above: Performed By: #### H S TROP, SCAN CBC, CMP, BNP, CK #### [address] MCH [Entitic mass] by Automa nani countOrdered By: Luis Dominguez on 02-07-2024 MCH (RBC) [Entitic mass] 32.1 pg Normal 27.5-35.2 [facility] [place] Comment on above: Performed By: #### H S TROP, SCAN CBC, CMP, BNP, CK #### [address] MCHC Auto (RBC) [Mass/Vol]Or dered By: Luis Dominguez on 02-07-2024 MCHC (RBC) [Mass/Vol] 33.8 g/dL 32.5-35.6 [facility] [place] MCV [Entitic volume] by Auto mated countOrdered By: Luis Dominguez on 02-07-2024 MCV (RBC) [Entitic vol] 94.9 fL Normal 83.5-101 [facility] [place] Comment on above: Performed By: #### H S TROP, SCAN CBC, CMP, BNP, CK #### [place] [address] [place] Monocyte distribution width [Entitic volume] in Blood by AutomatedOrdered By: Luis Dominguez on 02-07-2024 Monocyte distribution width Auto (Bld) [Entitic vol] 19.12 % 0.00-20.00 [facility] [place] Neutrophils [#/volume] in Bl ood by Automated countOrdered By: Luis Dominguez on 02-07-2024 Neutrophils (Bld) [#/Vol] 3.0 10*3/uL Normal 1.8-7.7 [facility] [place] Comment on above: Performed By: #### H S TROP, SCAN CBC, CMP, BNP, CK #### [facility] [address] No Panel InformationOrdered By: Luis Dominguez on 02-07-2024 Estimated GFR (CKD-EPI) > 60.0 mL/Min [facility] [place] [facility] Creatinine Clearance (Chem 47.99 [facility] [place] Nucleated erythrocytes [Pres ence] in Blood by Automated countOrdered By: Luis Dominguez on 02-07-2024 Nucleated RBC Auto Ql (Bld) 0.1 /100{WBC} 0-0.5 [facility] [place] Platelet adequacy [Presence] in Blood by Light microscopyOrdered By: Luis Dominguez on 02-07-2024 Platelets LM Ql (Bld) Normal Normal [facility] [place] Platelet mean volume [Entiti c volume] in Blood by Automated countOrdered By: Luis Dominguez on 02-07-2024 Platelet mean volume (Bld) [Entitic vol] 10.5 fL High 6.6-10.1 [facility] [place] Comment on above: Performed By: #### H S TROP, SCAN CBC, CMP, BNP, CK #### [address] Platelet morphology finding [Identifier] in BloodOrdered By: Luis Dominguez on 02-07-2024 Platelet morphology finding Nom (Bld) Normal Normal [facility] [place] Platelets Large [Presence] i n Blood by Light microscopyOrdered By: Luis Dominguez on 02-07-2024 Platelets Large LM Ql (Bld) Slight [facility] [place] Platelets [#/volume] in Bloo d by Automated countOrdered By: Luis Dominguez on 02-07-2024 Platelets (Bld) [#/Vol] 187 10*3/uL Normal 150-450 [facility] [place] Comment on above: Performed By: #### H S TROP, SCAN CBC, CMP, BNP, CK #### [facility] [address] [place] [address] [place] Polychromasia [Presence] in Blood by Light microscopyOrdered By: Luis Dominguez on 02-07-2024 Polychromasia LM Ql (Bld) Slight [facility] [place] Potassium [Moles/volume] in Serum or PlasmaOrdered By: Luis Dominguez on 02-07-2024 Potassium [Moles/Vol] 3.8 mmol/L Normal 3.5-5.1 [facility] [place] Comment on above: Performed By: #### H S TROP, SCAN CBC, CMP, BNP, CK #### [address] Protein [Mass/volume] in Ser um or PlasmaOrdered By: Luis Dominguez on 02-07-2024 Protein [Mass/Vol] 6.9 g/dL Normal 6.4-8.9 [facility] Comment on above: Performed By: #### H S TROP, SCAN CBC, CMP, BNP, CK #### [address] RBC morphologyOrdered By: Karmen Dominguez on 02-07-2024 RBC morphology finding Nom (Bld) Normal Normal Normal [facility] [place] Comment on above: Performed By: #### H S TROP, SCAN CBC, CMP, BNP, CK #### [place] [address] [place] Scan and CBCon 02-07-2024 Large Platelets Slight Normal [facility] Comment on above: Result Comment: PERF ORMED BY: [place] [address] PATHOLOGIST SIDE PANEL HANGER ALEX CROWLEY M.D. Performed By: #### H S TROP, SCAN CBC, CMP, BNP, CK #### [address] Mean Corpuscular HGB Conc 33.8 g/dL Normal 32.5-35.6 [facility] Comment on above: Performed By: #### H S TROP, SCAN CBC, CMP, BNP, CK #### [place] [address] [place] Monocytes/100 WBC (Bld) 19.12 % Normal 0.00-20.00 [facility] Comment on above: Performed By: #### H S TROP, SCAN CBC, CMP, BNP, CK #### [address] NRBC% 0.1 /100{WBC} Normal 0-0.5 [facility] Comment on above: Performed By: #### H S TROP, SCAN CBC, CMP, BNP, CK #### [address] Platelet Estimate Normal Normal Normal [facility] Comment on above: Performed By: #### H S TROP, SCAN CBC, CMP, BNP, CK #### [address] Platelet Morphology Normal Normal Normal [facility] Comment on above: Performed By: #### H S TROP, SCAN CBC, CMP, BNP, CK #### [address] Polychromasia Slight Normal [facility] Comment on above: Performed By: #### H S TROP, SCAN CBC, CMP, BNP, CK #### [address] Serum globulin measurement b y calculation (mass/volume)Ordered By: Luis Dominguez on 02-07-2024 Globulin (S) [Mass/Vol] 3.3 g/dL Normal [facility] [place] Comment on above: Performed By: #### H S TROP, SCAN CBC, CMP, BNP, CK #### [address] Serum or plasma albumin/glob ulin mass ratioOrdered By: Luis Dominguez on 02-07-2024 Albumin/Globulin [Mass ratio] 1.1 {ratio} Normal [facility] [place] Comment on above: Performed By: #### H S TROP, SCAN CBC, CMP, BNP, CK #### [address] Serum or plasma anion gap de terminationOrdered By: Luis Dominguez on 02-07-2024 Anion gap [Moles/Vol] 13.1 mmol/L Normal 6.0-15.0 [facility] Comment on above: Performed By: #### H S TROP, SCAN CBC, CMP, BNP, CK #### [facility] [address] [place] [address] Sodium [Moles/volume] in Ser um or PlasmaOrdered By: Luis Dominguez on 02-07-2024 Sodium [Moles/Vol] 133 mmol/L Low 136-145 [facility] Comment on above: Performed By: #### H S TROP, SCAN CBC, CMP, BNP, CK #### [facility] [address] [place] [address] Troponin I High Sensitivityo n 02-07-2024 Troponin I High Sensitivity 10.1 pg/mL Normal 0.0-20.0 [facility] Comment on above: Result Comment: PERF ORMED BY: [place] [address] PATHOLOGIST SIDE PANEL HANGER ALEX CROWLEY M.D. Performed By: #### H S TROP, SCAN CBC, CMP, BNP, CK #### [address] Troponin I.cardiac [Mass/vol ume] in Serum or Plasma by Detection limit <= 0.01 ng/Ordered By: Luis Dominguez on 02-07-2024 Troponin I.cardiac DL <= 0.01 ng/mL [Mass/Vol] 10.1 pg/mL 0.0-20.0 [facility] [place] Urea nitrogen [Mass/volume] in Serum or PlasmaOrdered By: Luis Dominguez on 02-07-2024 Urea nitrogen [Mass/Vol] 17 mg/dL Normal 7-25 [facility] [place] Comment on above: Performed By: #### H S TROP, SCAN CBC, CMP, BNP, CK #### [facility] [address] [place] [address] Family Medicine Office/Clini c Noteon 02-06-2024 Family Medicine Office/Clinic Note Family Medicine Office/Clinic Note HPI Staff Pedro is a 68 year old presenting with sore throat and runny nose Has lung cancer C/O: Duration: _ started over a week ago Body aches: no just from cancer Chills: no Fatigue: yes Cough: no Sore throat: yes Fever: no Headache: no Nasal congestion: no Loss of taste: no Loss of smell: no Eye itching/watering: no watery eyes worse in the morning Sneezing: no SOB: no yes from cancers Known Exposure: no COVID TEST today- History of Present Illness pt presents today with sore throat and runny nose Review of Systems PHQ Score Initial Depression Screen Score: 0 SCORE Physical Exam Vitals & Measurements T: 37.0 ?C(Temporal Artery) HR: 90(Peripheral) RR: 20 BP: 128/84 SpO2: 98% HT: 67 in HT: 169.5 cm WT: 52.9 kg WT: 116.38 lb BMI: 18.41 General: alert, no acute distress ENMT: oral mucosa moist, no pharyngeal erythema or exudate Cardiovascular: regular rate and rhythm, normal peripheral perfusion Respiratory: Lungs CTA, respirations non labored Extremities: no deformity, no trauma Neurological: oriented x 4, LOC appropriate for age, CN II-XII intact, motor strength equal & normal bilaterally, speech normal Assessment/Plan 1. Sinusitis (J32.9: Chronic sinusitis, unspecified) sinus infection. will treat with amoxicillin. and medrol dose pack. pt is trying to get his house fixed up before he passes away from cancer. he is losing weight and just feels so weak. Ordered: amoxicillin, 875 mg = 1 tab(s), Oral, BID, X 7 day(s), # 14 tab(s), Refills(s) 0, Pharmacy: [facility], 169.5, cm, 02/06/24 12:01:00 EDT, Height/Length Dosing, 52.9, kg, 02/06/24 12:01:00 EDT, Weight Dosing methylPREDNISolone, = 1 packet(s), Oral, As Directed, as directed on package labeling, X 6 day(s), # 21 tab(s), Refills(s) 0, Pharmacy: [facility], 169.5, cm, 02/06/24 12:01:00 EDT, Height/Length Dosing, 52.9, kg, 02/06/24 12:01:00 EDT, Weight Dosing 2. Former smoker (Z87.891: Personal history of nicotine dependence) continue not smoking Ordered: amoxicillin, 875 mg = 1 tab(s), Oral, BID, X 7 day(s), # 14 tab(s), Refills(s) 0, Pharmacy: [facility], 169.5, cm, 02/06/24 12:01:00 EDT, Height/Length Dosing, 52.9, kg, 02/06/24 12:01:00 EDT, Weight Dosing methylPREDNISolone, = 1 packet(s), Oral, As Directed, as directed on package labeling, X 6 day(s), # 21 tab(s), Refills(s) 0, Pharmacy: [facility], 169.5, cm, 02/06/24 12:01:00 EDT, Height/Length Dosing, 52.9, kg, 02/06/24 12:01:00 EDT, Weight Dosing 3. BMI less than 19,adult (Z68.1: Body mass index [BMI] 19.9 or less, adult) BMI education given Ordered: amoxicillin, 875 mg = 1 tab(s), Oral, BID, X 7 day(s), # 14 tab(s), Refills(s) 0, Pharmacy: [facility], 169.5, cm, 02/06/24 12:01:00 EDT, Height/Length Dosing, 52.9, kg, 02/06/24 12:01:00 EDT, Weight Dosing methylPREDNISolone, = 1 packet(s), Oral, As Directed, as directed on package labeling, X 6 day(s), # 21 tab(s), Refills(s) 0, Pharmacy: [facility], 169.5, cm, 02/06/24 12:01:00 EDT, Height/Length Dosing, 52.9, kg, 02/06/24 12:01:00 EDT, Weight Dosing Orders: triamcinolone topical, 1 mark, Topical, BID, 20 gram, Refill(s) 1, [facility], 169.5, cm, 10/15/23 11:53:00 EDT, Height/Length Dosing, 59.7, kg, 10/15/23 11:53:00 EDT, Weight Dosing Follow-up No qualifying data available Problem List/Past Medical History Ongoing Anxiety CAD (coronary artery disease) Chest congestion Emphysema lung Fluid level behind tympanic membrane of both ears Insomnia Lung cancer Pharyngitis Rash Sinusitis Historical No qualifying data Procedure/Surgical History CABG (Coronary artery bypass grafting) planned, Lobectomy of lung. Medications alprazolam 0.25 mg Tab, 0.25 mg= 1 tab(s), Oral, TID, PRN amoxicillin 875 mg Tab, 875 mg= 1 tab(s), Oral, BID atorvastatin 40 mg Tab, 40 mg= 1 tab(s), Oral, Daily cilostazol 100 mg Tab clopidogrel 75 mg Tab, 75 mg= 1 tab(s), Oral, Daily isosorbide mononitrate 30 mg ER Tab levothyroxine 75 mcg (0.075 mg) Tab, 75 mcg= 1 tab(s), Oral, Daily Lumakras 320 mg oral tablet Medrol 4 mg Tab, 1 packet(s), Oral, As Directed metoprolol 25 mg ER Tab, 25 mg= 1 tab(s), Oral, BID olanzapine 5 mg oral tablet, disintegrating, 5 mg= 1 tab(s), Oral, Daily oxycodone 10 mg oral tablet pregabalin 75 mg Cap, 75 mg= 1 cap(s), Oral, TID Allergies No Known Allergies Social History Alcohol Beer, 3-5 times per week, Household alcohol concerns: No., 04/16/2023 Tobacco Former smoker, quit more than 30 days ago, quit 2022 Tobacco Use:. Cigarettes, Household tobacco concerns: No., 02/06/2024 Family History Primary malignant neoplasm of lung: Father. Immunizations Vaccine Date Status SARS-CoV-2 (COVID-19) mRNA-1273 vaccine 07/17/2021 Recorded SARS-CoV-2 (COVID-19) mRNA-1273 vaccine 06/19/2021 Recorded SARS-CoV-2 (COVID-19) mRN (more content not included)... Normal [facility] Comment on above: Result Comment: Elec tronically Signed By: Enrique Austin\.br\Date and Time Signed: 02/06/24 12:32 EDT CBC W Auto Differential pane l (Bld)on 02-03-2024 Basophils (Bld) [#/Vol] 10*3/uL Normal <0.11 [facility] Comment on above: Order Comment: Speci men Type: BLOOD SPECIMENOrdering Facility: [facility] Address: [address] [place] [address] Performed By: #### 5 7021-8 ####[facility] LABCLIA [id number] [place] [address] Basophils/100 WBC (Bld) 0.3 % Normal [facility] Comment on above: Order Comment: Speci men Type: BLOOD SPECIMENOrdering Facility: [facility] Address: [address] [place] [address] Performed By: #### 5 7021-8 ####[facility]CLIA [id number] [place] [address] Differential cell count method Nom (Bld) Auto Normal [facility] Comment on above: Order Comment: Speci men Type: BLOOD SPECIMENOrdering Facility: [facility] Address: [address] [place] [address] Performed By: #### 5 7021-8 ####[facility]CL[facility] [id number] [place] [address] Eosinophils (Bld) [#/Vol] 0.10 10*3/uL Normal <0.46 [facility] Comment on above: Order Comment: Speci men Type: BLOOD SPECIMENOrdering Facility: [facility] Address: [address] [place] [address] Performed By: #### 5 7021-8 ####[facility]CL[facility] [id number] [place] [address] Eosinophils/100 WBC (Bld) 1.7 % Normal [facility] Comment on above: Order Comment: Speci men Type: BLOOD SPECIMENOrdering Facility: [facility] Address: [address] [place] [address] Performed By: #### 5 7021-8 ####[facility]CL[facility] [id number] [place] [address] Erythrocyte distribution width (RBC) [Ratio] 13.7 % Normal 11.5-15.0 [facility] Comment on above: Order Comment: Speci men Type: BLOOD SPECIMENOrdering Facility: [facility] Address: [address] [place] [address] Performed By: #### 5 7021-8 ####[facility]CL[facility] [id number] [place] [address] Hematocrit (Bld) [Volume fraction] 38.1 % Low 39.0-51.0 [facility] Comment on above: Order Comment: Speci men Type: BLOOD SPECIMENOrdering Facility: [facility] Address: [address] [place] [address] Performed By: #### 5 7021-8 ####[facility]CL[facility] [id number] [place] [address] Hemoglobin (Bld) [Mass/Vol] 12.7 g/dL Low 13.0-17.0 [facility] Comment on above: Order Comment: Speci men Type: BLOOD SPECIMENOrdering Facility: [facility] Address: [address] [place] [address] Performed By: #### 5 7021-8 ####[facility]CLIA [id number] [place] [address] Immature granulocytes (Bld) [#/Vol] 0.04 10*3/uL Normal <0.10 [facility] Comment on above: Order Comment: Speci men Type: BLOOD SPECIMENOrdering Facility: [facility] Address: [address] [place] [address] Performed By: #### 5 7021-8 ####[facility]CLIA [id number] [place] [address] Immature granulocytes/100 WBC (Bld) 0.7 % Normal [facility] Comment on above: Order Comment: Speci men Type: BLOOD SPECIMENOrdering Facility: [facility] Address: [address] [place] [address] Performed By: #### 5 7021-8 ####[facility]CL[facility] [id number] [place] [address] Lymphocytes (Bld) [#/Vol] 1.05 10*3/uL Normal 1.00-4.00 [facility] Comment on above: Order Comment: Speci men Type: BLOOD SPECIMENOrdering Facility: [facility] Address: [address] [place] [address] Performed By: #### 5 7021-8 ####[facility]CL[facility] [id number] [place] [address] Lymphocytes/100 WBC (Bld) 17.6 % Normal [facility] Comment on above: Order Comment: Speci men Type: BLOOD SPECIMENOrdering Facility: [facility] Address: [address] [place] [address] Performed By: #### 5 7021-8 ####[facility]CL[facility] [id number] [place] [address] MCH (RBC) [Entitic mass] 31.7 pg Normal 26.0-34.0 [facility] Comment on above: Order Comment: Speci men Type: BLOOD SPECIMENOrdering Facility: [facility] Address: [address] [place] [address] Performed By: #### 5 7021-8 ####[facility]CLIA [id number] [place] [address] MCHC (RBC) [Mass/Vol] 33.3 g/dL Normal 30.5-36.0 [facility] Comment on above: Order Comment: Speci men Type: BLOOD SPECIMENOrdering Facility: [facility] Address: [address] [place] [address] Performed By: #### 5 7021-8 ####[facility]CLIA [id number] [place] [address] MCV (RBC) [Entitic vol] 95.0 fL Normal 80.0-100.0 [facility] Comment on above: Order Comment: Speci men Type: BLOOD SPECIMENOrdering Facility: [facility] Address: [address] [place] [address] Performed By: #### 5 7021-8 ####[facility]CLIA [id number] [place] [address] Monocytes (Bld) [#/Vol] 1.00 10*3/uL High <0.87 [facility] Comment on above: Order Comment: Speci men Type: BLOOD SPECIMENOrdering Facility: [facility] Address: [address] [place] [address] Performed By: #### 5 7021-8 ####[facility]CLIA [id number] [place] [address] Monocytes/100 WBC (Bld) 16.8 % Normal [facility] Comment on above: Order Comment: Speci men Type: BLOOD SPECIMENOrdering Facility: [facility] Address: [address] [place] [address] Performed By: #### 5 7021-8 ####[facility]CL[facility] [id number] [place] [address] Neutrophils (Bld) [#/Vol] 3.75 10*3/uL Normal 1.45-7.50 [facility] Comment on above: Order Comment: Speci men Type: BLOOD SPECIMENOrdering Facility: [facility] Address: [address] [place] [address] Performed By: #### 5 7021-8 ####[facility]CL[facility] [id number] [place] [address] Neutrophils/100 WBC (Bld) 62.9 % Normal [facility] Comment on above: Order Comment: Speci men Type: BLOOD SPECIMENOrdering Facility: [facility] Address: [address] [place] [address] Performed By: #### 5 7021-8 ####[facility]CL[facility] [id number] [place] [address] Nucleated RBC (Bld) [#/Vol] 10*3/uL Normal <0.01 [facility] Comment on above: Order Comment: Speci men Type: BLOOD SPECIMENOrdering Facility: [facility] Address: [address] [place] [address] Performed By: #### 5 7021-8 ####[facility]CL[facility] [id number] [place] [address] Nucleated RBC/100 WBC (Bld) [Ratio] 0.0 /100 WBC Normal [facility] Comment on above: Order Comment: Speci men Type: BLOOD SPECIMENOrdering Facility: [facility] Address: [address] [place] [address] Performed By: #### 5 7021-8 ####[facility]CL[facility] [id number] [place] [address] Platelet mean volume (Bld) [Entitic vol] 11.5 fL Normal 9.0-12.7 [facility] Comment on above: Order Comment: Speci men Type: BLOOD SPECIMENOrdering Facility: [facility] Address: [address] [place] [address] Performed By: #### 5 7021-8 ####[facility]CL[facility] [id number] [place] [address] Platelets (Bld) [#/Vol] 201 10*3/uL Normal 150-400 [facility] Comment on above: Order Comment: Speci men Type: BLOOD SPECIMENOrdering Facility: [facility] Address: [address] [place] [address] Performed By: #### 5 7021-8 ####[facility]CL[facility] [id number] [place] [address] RBC (Bld) [#/Vol] 4.01 10*6/uL Low 4.20-6.00 [facility] Comment on above: Order Comment: Speci men Type: BLOOD SPECIMENOrdering Facility: [facility] Address: [address] [place] [address] Performed By: #### 5 7021-8 ####[facility]CL[facility] [id number] [place] [address] WBC (Bld) [#/Vol] 5.96 10*3/uL Normal 3.70-11.00 [facility] Comment on above: Order Comment: Speci men Type: BLOOD SPECIMENOrdering Facility: [facility] Address: [address] [place] [address] Performed By: #### 5 7021-8 ####[facility]CL[facility] [id number] [place] [address] CNOVSPon 02-03-2024 CNOVSP Normal [facility] metabolic 2000 panelon 02-03-2024 Albumin [Mass/Vol] 3.8 g/dL Low 3.9-4.9 [facility] Comment on above: Order Comment: Speci men Type: BLOOD SPECIMENOrdering Facility: [facility] Address: [address] [place] [address] Performed By: #### 2 4323-8 ####[facility] LABIA [id number] [place] [address] ALP [Catalytic activity/Vol] 47 U/L Normal 38-113 [facility] Comment on above: Order Comment: Speci men Type: BLOOD SPECIMENOrdering Facility: [facility] Address: [address] [place] [address] Performed By: #### 2 4323-8 ####[facility]CL[facility] [id number] [place] [address] ALT [Catalytic activity/Vol] 12 U/L Normal 10-54 [facility] Comment on above: Order Comment: Speci men Type: BLOOD SPECIMENOrdering Facility: [facility] Address: [address] [place] [address] Performed By: #### 2 4323-8 ####[facility]CLIA [id number] [place] [address] Anion gap [Moles/Vol] 13 mmol/L Normal 8-15 [facility] Comment on above: Order Comment: Speci men Type: BLOOD SPECIMENOrdering Facility: [facility] Address: [address] [place], [place] [address] Performed By: #### 2 4323-8 ####[facility]CLIA [id number] [place] [address] AST [Catalytic activity/Vol] 22 U/L Normal 14-40 [facility] Comment on above: Order Comment: Speci men Type: BLOOD SPECIMENOrdering Facility: [facility] Address: [address] [place] [address] Performed By: #### 2 4323-8 ####[facility]CLIA [id number] [place] [address] Bilirubin [Mass/Vol] 0.8 mg/dL Normal 0.2-1.[address] [facility] Comment on above: Order Comment: Speci men Type: BLOOD SPECIMENOrdering Facility: [facility] Address: [address] [place] [address] Performed By: #### 2 4323-8 ####[facility]CLIA [id number] [place] [address] Calcium [Mass/Vol] 10.5 mg/dL High 8.5-10.2 [facility] Comment on above: Order Comment: Speci men Type: BLOOD SPECIMENOrdering Facility: [facility] Address: [address] [place] [address] Performed By: #### 2 4323-8 ####[facility]CLIA [id number] [place] [address] Chloride [Moles/Vol] 101 mmol/L Normal 98-[address] [facility] Comment on above: Order Comment: Speci men Type: BLOOD SPECIMENOrdering Facility: [facility] Address: [address] [place], [place] [address] Performed By: #### 2 4323-8 ####[facility]CL[facility] [id number] [place] [address] CO2 [Moles/Vol] 24 mmol/L Normal 22-30 [facility] Comment on above: Order Comment: Speci men Type: BLOOD SPECIMENOrdering Facility: [facility] Address: [address] [place] [address] Performed By: #### 2 4323-8 ####[facility]CLIA [id number] [place] [address] Creatinine [Mass/Vol] 1.35 mg/dL High 0.73-1.22 [facility] Comment on above: Order Comment: Speci men Type: BLOOD SPECIMENOrdering Facility: [facility] Address: [address] [place] [address] Performed By: #### 2 4323-8 ####[facility]CL[facility] [id number] [place] [address] Creatinine and Glomerular filtration rate.predicted panel (S/P/Bld) 58 mL/min/1.73m??? Low >=60 [facility] Comment on above: Order Comment: Speci men Type: BLOOD SPECIMENOrdering Facility: [facility] Address: [address] [place] [address] Result Comment: Landy mated Glomerular Filtration Rate (eGFR) is calculated using the 2020 CKD-EPI creatinine equation. This equation utilizes serum creatinine, sex, and age as parameters. The creatinine assay has traceable calibration to isotope dilution-mass spectrometry. Refer to KDIGO guidelines for clinical interpretation. In patients with unstable renal function, e.g. those with acute kidney injury, the eGFR may not accurately reflect actual GFR. Performed By: #### 2 4323-8 ####[facility]CLIA [id number] [place] [address] Glucose [Mass/Vol] 98 mg/dL Normal 74-99 [facility] Comment on above: Order Comment: Speci men Type: BLOOD SPECIMENOrdering Facility: [facility] Address: [address] [id number] Result Comment: The [place] Diabetes Association (ADA) provides guidance for cutoff values for fasting glucose and random glucose. The ADA defines fasting as no caloric intake for at least 8 hours. Fasting plasma glucose results between 100 to 125 mg/dL indicate increased risk for diabetes (prediabetes).Fasting plasma glucose results greater than or equal to 126 mg/dL meet the criteria for diagnosis of diabetes. In the absence of unequivocal hyperglycemia, results should be confirmed by repeat testing. In a patient with classic symptoms of hyperglycemia or hyperglycemic crisis, random plasma glucose results greater than or equal to 200 mg/dL meet the criteria for diagnosis of diabetes.Reference: Standards of Medical Care in Diabetes 2016, [place] [employer]. Diabetes Care. 2016.39(Suppl 1). Performed By: #### 2 4323-8 ####[facility] LABCLIA [id number] [place] [address] Potassium [Moles/Vol] 4.7 mmol/L Normal 3.7-5.1 [facility] Comment on above: Order Comment: [facility] Type: BLOOD SPECIMENOrdering Facility: [facility] Address: [address] [id number] Performed By: #### 2 4323-8 ####[facility] LABCLIA [id number] [place] [address] Protein [Mass/Vol] 7.2 g/dL Normal 6.3-8.0 [facility] Comment on above: Order Comment: Speci [facility] Type: BLOOD SPECIMENOrdering Facility: [facility] Address: [address] [place] [address] Performed By: #### 2 4323-8 ####[facility] LABCLIA [id number] [place] [address] Sodium [Moles/Vol] 138 mmol/L Normal 136-144 [facility] Comment on above: Order Comment: Speci men Type: BLOOD SPECIMENOrdering Facility: [facility] Address: [address] [phone] Performed By: #### 2 4323-8 ####[facility] LABCLIA [id number] [place] [address] Urea nitrogen [Mass/Vol] 15 mg/dL Normal 9-24 [facility] Comment on above: Order Comment: Speci men Type: BLOOD SPECIMENOrdering Facility: [facility] Address: [address] [place] [address] Performed By: #### 2 4323-8 ####[facility] LABCLIA [id number] [place] [address] CNPNon 01-27-2024 CNPN Normal [facility] CNPNon 01-13-2024 CNPN Normal [facility] Family Medicine Office/Clini c Noteon 01-12-2024 Family Medicine Office/Clinic Note HPI Staff Pedro is a 68 year old male presenting for 3 month follow up Follow up for Mental Status: RUCHI 10/08/23 ERIS: 6 Medication adherence- Yes, takes medication as prescribed Suicidal thoughts-Not at this time Medication Agreement: UTD Most recent ERIS: 7 Pt states working well for him History of Present Illness pt presents today for 3 month med check. Review of Systems PHQ Score Initial Depression Screen Score: 0 SCORE Physical Exam Vitals & Measurements HR: 86(Peripheral) RR: 18 BP: 120/76 HT: 67 in HT: 169.5 cm WT: 54.7 kg WT: 120.34 lb BMI: 19.04 General: alert, no acute distress ENMT: oral mucosa moist, no pharyngeal erythema or exudate Cardiovascular: regular rate and rhythm, normal peripheral perfusion Respiratory: Lungs CTA, respirations non labored Extremities: no deformity, no trauma Neurological: oriented x 4, LOC appropriate for age, CN II-XII intact, motor strength equal & normal bilaterally, speech normal Assessment/Plan 1. Anxiety (F41.9: Anxiety disorder, unspecified) pt continues taking xanax. states it helps me turn my brain off at night. states cancer tumors are growing and they are trying to manage his pain. some days are better than others. medication agreement up to date. RTC 3 months 2. Lung cancer (C34.90: Malignant neoplasm of unspecified part of unspecified bronchus or lung) managed by oncologist 3. BMI less than 19,adult (Z68.1: Body mass index [BMI] 19.9 or less, adult) BMI education given 4. Former smoker (Z87.891: Personal history of nicotine dependence) continue not smoking Orders: alprazolam, 0.25 mg = 1 tab(s), Oral, TID, PRN for anxiety, # 90 tab(s), Refills(s) 0, Pharmacy: [facility], 169.5, cm, 01/12/24 12:03:00 EDT, Height/Length Dosing, 54.7, kg, 01/12/24 12:03:00 EDT, Weight Dosing alprazolam, 0.25 mg = 1 tab(s), Oral, TID, PRN for anxiety, # 90 tab(s), Refills(s) 0, Pharmacy: [facility], 169.5, cm, 10/08/23 9:02:00 EDT, Height/Length Dosing, 58.8, kg, 10/08/23 9:02:00 EDT, Weight Dosing Follow-up No qualifying data available Problem List/Past Medical History Ongoing Anxiety CAD (coronary artery disease) Chest congestion Emphysema lung Fluid level behind tympanic membrane of both ears Insomnia Lung cancer Pharyngitis Rash Historical No qualifying data Procedure/Surgical History CABG (Coronary artery bypass grafting) planned, Lobectomy of lung. Medications alprazolam 0.25 mg Tab, 0.25 mg= 1 tab(s), Oral, TID, PRN atorvastatin 40 mg Tab, 40 mg= 1 tab(s), Oral, Daily cilostazol 100 mg Tab clopidogrel 75 mg Tab, 75 mg= 1 tab(s), Oral, Daily isosorbide mononitrate 30 mg ER Tab levothyroxine 75 mcg (0.075 mg) Tab, 75 mcg= 1 tab(s), Oral, Daily Lumakras 320 mg oral tablet metoprolol 25 mg ER Tab, 25 mg= 1 tab(s), Oral, BID olanzapine 5 mg oral tablet, disintegrating, 5 mg= 1 tab(s), Oral, Daily oxycodone 10 mg oral tablet pregabalin 75 mg Cap, 75 mg= 1 cap(s), Oral, TID triamcinolone Top 0.5% Crm, 1 mark, Topical, BID, 1 refills Allergies No Known Allergies Social History Alcohol Beer, 3-5 times per week, Household alcohol concerns: No., 04/16/2023 Tobacco Former smoker, quit more than 30 days ago Tobacco Use:. Cigarettes, Household tobacco concerns: No., 01/12/2024 Family History Primary malignant neoplasm of lung: Father. Immunizations Vaccine Date Status SARS-CoV-2 (COVID-19) mRNA-1273 vaccine 07/17/2021 Recorded SARS-CoV-2 (COVID-19) mRNA-1273 vaccine 06/19/2021 Recorded SARS-CoV-2 (COVID-19) mRNA-1273 vaccine 12/13/2020 Recorded SARS-CoV-2 (COVID-19) mRNA-1273 vaccine 11/15/2020 Recorded Normal [facility] Comment on above: Result Comment: Elec tronically Signed By: Cate MENARD, Enrique Beatty\.br\Date and Time Signed: 01/12/24 12:31 EDT CNPNon 01-09-2024 [facility] CBC W Auto Differential pane l (Bld)on 12-23-2023 Basophils (Bld) [#/Vol] [facility] Basophils/100 WBC (Bld) 0.1 % [facility] Differential cell count method Nom (Bld) Auto [facility] Eosinophils (Bld) [#/Vol] [facility] Eosinophils/100 WBC (Bld) 0.1 % [facility] Erythrocyte distribution width (RBC) [Ratio] 15.3 % High 11.5 - 15.0 % [facility] Hematocrit (Bld) [Volume fraction] 31.1 % Low 39.0 - 51.0 % [facility] Hemoglobin (Bld) [Mass/Vol] 10.0 g/dL Low 13.0 - 17.0 g/dL [facility] Immature granulocytes (Bld) [#/Vol] 0.07 10*3/uL [facility] Immature granulocytes/100 WBC (Bld) 0.9 % [facility] Interpretation and review of laboratory results Abnormal [facility] Lymphocytes (Bld) [#/Vol] 0.38 10*3/uL Low [facility] Lymphocytes/100 WBC (Bld) 4.6 % [facility] MCH (RBC) [Entitic mass] 31.0 pg 26.0 - 34.0 pg [facility] MCHC (RBC) [Mass/Vol] 32.2 g/dL 30.5 - 36.0 g/dL [facility] MCV (RBC) [Entitic vol] 96.3 fL 80.0 - 100.0 fL [facility] Monocytes (Bld) [#/Vol] 0.34 10*3/uL [facility] Monocytes/100 WBC (Bld) 4.1 % [facility] Neutrophils (Bld) [#/Vol] 7.39 10*3/uL [facility] Neutrophils/100 WBC (Bld) 90.2 % [facility] Nucleated RBC (Bld) [#/Vol] [facility] Nucleated RBC/100 WBC (Bld) [Ratio] 0.0 % /100 WBC [facility] Platelet mean volume (Bld) [Entitic vol] 10.9 fL 9.0 - 12.7 fL [facility] Platelets (Bld) [#/Vol] 141 10*3/uL Low [facility] RBC (Bld) [#/Vol] 3.23 10*6/uL Low 4.20 - 6.00 m/uL [facility] WBC (Bld) [#/Vol] 8.20 10*3/uL [facility] Basophils (Bld) [#/Vol] 10*3/uL Normal <0.11 [facility] Comment on above: Order Comment: Speci men Type: BLOOD SPECIMENOrdering Facility: [facility] Address: [address] [place] [address] Performed By: #### 5 7021-8 ####[facility] LABCLIA [id number] [place] [address] Basophils/100 WBC (Bld) 0.1 % Normal [facility] Comment on above: Order Comment: Speci men Type: BLOOD SPECIMENOrdering Facility: [facility] Address: [address] [place] [address] Performed By: #### 5 7021-8 ####[facility] LABCLIA [id number] [place] [address] Differential cell count method Nom (Bld) Auto Normal [facility] Comment on above: Order Comment: Speci men Type: BLOOD SPECIMENOrdering Facility: [facility] Address: [address] [place] [address] Performed By: #### 5 7021-8 ####[facility] LABCLIA [id number] [place] [address] Eosinophils (Bld) [#/Vol] 10*3/uL Normal <0.46 [facility] Comment on above: Order Comment: Speci men Type: BLOOD SPECIMENOrdering Facility: [facility] Address: [address] [place] [address] Performed By: #### 5 7021-8 ####[facility] LABCLIA [id number] [place] [address] Eosinophils/100 WBC (Bld) 0.1 % Normal [facility] Comment on above: Order Comment: Speci men Type: BLOOD SPECIMENOrdering Facility: [facility] Address: [address] [place] [address] Performed By: #### 5 7021-8 ####[facility] LABCLIA [id number] [place] [address] Erythrocyte distribution width (RBC) [Ratio] 15.3 % High 11.5-15.0 [facility] Comment on above: Order Comment: Speci men Type: BLOOD SPECIMENOrdering Facility: [facility] Address: [address] [place] [address] Performed By: #### 5 7021-8 ####[facility] LABCLIA [id number] [place] [address] Hematocrit (Bld) [Volume fraction] 31.1 % Low 39.0-51.0 [facility] Comment on above: Order Comment: Speci men Type: BLOOD SPECIMENOrdering Facility: [facility] Address: [address] [place] [address] Performed By: #### 5 7021-8 ####[facility] LABCLIA [id number] [place] [address] Hemoglobin (Bld) [Mass/Vol] 10.0 g/dL Low 13.0-17.0 [facility] Comment on above: Order Comment: Speci men Type: BLOOD SPECIMENOrdering Facility: [facility] Address: [address] [place] [address] Performed By: #### 5 7021-8 ####[facility] LABCLIA [id number] [place] [address] Immature granulocytes (Bld) [#/Vol] 0.07 10*3/uL Normal <0.10 [facility] Comment on above: Order Comment: Speci men Type: BLOOD SPECIMENOrdering Facility: [facility] Address: [address] [place] [address] Performed By: #### 5 7021-8 ####[facility] LABCLIA [id number] [place] [address] Immature granulocytes/100 WBC (Bld) 0.9 % Normal [facility] Comment on above: Order Comment: Speci men Type: BLOOD SPECIMENOrdering Facility: [facility] Address: [address] [place] [address] Performed By: #### 5 7021-8 ####[facility] LABCLIA [id number] [place] [address] Lymphocytes (Bld) [#/Vol] 0.38 10*3/uL Low 1.00-4.00 [facility] Comment on above: Order Comment: Speci men Type: BLOOD SPECIMENOrdering Facility: [facility] Address: [address] [place] [address] Performed By: #### 5 7021-8 ####[facility] LABCLIA [id number] [place] [address] Lymphocytes/100 WBC (Bld) 4.6 % Normal [facility] Comment on above: Order Comment: Speci men Type: BLOOD SPECIMENOrdering Facility: [facility] Address: [address] [place] [address] Performed By: #### 5 7021-8 ####[facility] LABCLIA [id number] [place] [address] MCH (RBC) [Entitic mass] 31.0 pg Normal 26.0-34.0 [facility] Comment on above: Order Comment: Speci men Type: BLOOD SPECIMENOrdering Facility: [facility] Address: [address] [place] [address] Performed By: #### 5 7021-8 ####[facility] LABIA [id number] [place] [address] MCHC (RBC) [Mass/Vol] 32.2 g/dL Normal 30.5-36.0 [facility] Comment on above: Order Comment: Speci men Type: BLOOD SPECIMENOrdering Facility: [facility] Address: [address] [place] [address] Performed By: #### 5 7021-8 ####[facility] LABIA [id number] [place] [address] MCV (RBC) [Entitic vol] 96.3 fL Normal 80.0-100.0 [facility] Comment on above: Order Comment: Speci men Type: BLOOD SPECIMENOrdering Facility: [facility] Address: [address] [place] [address] Performed By: #### 5 7021-8 ####[facility] LABIA [id number] [place] [address] Monocytes (Bld) [#/Vol] 0.34 10*3/uL Normal <0.87 [facility] Comment on above: Order Comment: Speci men Type: BLOOD SPECIMENOrdering Facility: [facility] Address: [address] [place] [address] Performed By: #### 5 7021-8 ####[facility] LABCLIA [id number] [place] [address] Monocytes/100 WBC (Bld) 4.1 % Normal [facility] Comment on above: Order Comment: Speci men Type: BLOOD SPECIMENOrdering Facility: [facility] Address: [address] [place] [address] Performed By: #### 5 7021-8 ####[facility] LABCLIA [id number] [place] [address] Neutrophils (Bld) [#/Vol] 7.39 10*3/uL Normal 1.45-7.50 [facility] Comment on above: Order Comment: Speci men Type: BLOOD SPECIMENOrdering Facility: [facility] Address: [address] [place] [address] Performed By: #### 5 7021-8 ####[facility] LABCLIA [id number] [place] [address] Neutrophils/100 WBC (Bld) 90.2 % Normal [facility] Comment on above: Order Comment: Speci men Type: BLOOD SPECIMENOrdering Facility: [facility] Address: [address] [place] [address] Performed By: #### 5 7021-8 ####[facility] LABCLIA [id number] [place] [address] Nucleated RBC (Bld) [#/Vol] 10*3/uL Normal <0.01 [facility] Comment on above: Order Comment: Speci men Type: BLOOD SPECIMENOrdering Facility: [facility] Address: [address] [place] [address] Performed By: #### 5 7021-8 ####[facility] LABIA [id number] [place] [address] Nucleated RBC/100 WBC (Bld) [Ratio] 0.0 /100 WBC Normal [facility] Comment on above: Order Comment: Speci men Type: BLOOD SPECIMENOrdering Facility: [facility] Address: [address] [place] [address] Performed By: #### 5 7021-8 ####[facility] LABCLIA [id number] [place] [address] Platelet mean volume (Bld) [Entitic vol] 10.9 fL Normal 9.0-12.7 [facility] Comment on above: Order Comment: Speci men Type: BLOOD SPECIMENOrdering Facility: [facility] Address: [address] [place] [address] Performed By: #### 5 7021-8 ####[facility] LABCLIA [id number] [place] [address] Platelets (Bld) [#/Vol] 141 10*3/uL Low 150-400 [facility] Comment on above: Order Comment: Speci men Type: BLOOD SPECIMENOrdering Facility: [facility] Address: [address] [place] [address] Performed By: #### 5 7021-8 ####[facility] LABCLIA [id number] [place] [address] RBC (Bld) [#/Vol] 3.23 10*6/uL Low 4.20-6.00 [facility] Comment on above: Order Comment: Speci men Type: BLOOD SPECIMENOrdering Facility: [facility] Address: [address] [place] [address] Performed By: #### 5 7021-8 ####[facility] LABCLIA [id number] [place] [address] WBC (Bld) [#/Vol] 8.20 10*3/uL Normal 3.70-11.00 [facility] Comment on above: Order Comment: Speci men Type: BLOOD SPECIMENOrdering Facility: [facility] Address: [address] [place] [address] Performed By: #### 5 7021-8 ####[facility] LABCLIA [id number] [place] [address] CNOVSPon 12-23-2023 CNOVSP Normal [facility] metabolic 2000 panelOrdered By: [place] Viramontes on 12-23-2023 Albumin [Mass/Vol] 3.8 g/dL Low 3.9 - 4.9 g/dL [facility] ALP [Catalytic activity/Vol] 38 U/L 38 - 113 U/L [facility] ALT [Catalytic activity/Vol] 14 U/L 10 - 54 U/L [facility] Anion gap [Moles/Vol] 8 mmol/L 8 - 15 mmol/L [facility] AST [Catalytic activity/Vol] 15 U/L 14 - 40 U/L [facility] Bilirubin [Mass/Vol] 0.6 mg/dL 0.2 - 1.3 mg/dL [facility] Calcium [Mass/Vol] 9.7 mg/dL 8.5 - 10.2 mg/dL [facility] Chloride [Moles/Vol] 101 mmol/L 98 - 107 mmol/L [facility] CO2 [Moles/Vol] 26 mmol/L 22 - 30 mmol/L [facility] Creatinine [Mass/Vol] 1.19 mg/dL 0.73 - 1.22 mg/dL [facility] GFR/1.73 sq M.predicted among non-blacks MDRD (S/P/Bld) [Vol rate/Area] 67 mL/min/{1.73_m2} - PINF [facility] Comment on above: Estimated Glomerular Filtration Rate (eGFR) is calculated using the 2020 CKD-EPI creatinine equation. This equation utilizes serum creatinine, sex, and age as parameters. The creatinine assay has traceable calibration to isotope dilution-mass spectrometry. Refer to KDIGO guidelines for clinical interpretation. In patients with unstable renal function, e.g. those with acute kidney injury, the eGFR may not accurately reflect actual GFR. Glucose [Mass/Vol] 121 mg/dL High 74 - 99 mg/dL [facility] Comment on above: The [place] Di[employer] [place] Association (ADA) provides guidance for cutoff values for fasting glucose and random glucose. The ADA defines fasting as no caloric intake for at least 8 hours. Fasting plasma glucose results between 100 to 125 mg/dL indicate increased risk for diabetes (prediabetes). Fasting plasma glucose results greater than or equal to 126 mg/dL meet the criteria for diagnosis of diabetes. In the absence of unequivocal hyperglycemia, results should be confirmed by repeat testing. In a patient with classic symptoms of hyperglycemia or hyperglycemic crisis, random plasma glucose results greater than or equal to 200 mg/dL meet the criteria for diagnosis of diabetes. Reference: Standards of Medical Care in Diabetes 2016, [place] [employer]. Diabetes Care. 2016.39(Suppl 1). Interpretation and review of laboratory results Abnormal [facility] Potassium [Moles/Vol] 3.9 mmol/L 3.7 - 5.1 mmol/L [facility] Protein [Mass/Vol] 6.8 g/dL 6.3 - 8.0 g/dL [facility] Sodium [Moles/Vol] 135 mmol/L Low 136 - 144 mmol/L [facility] Urea nitrogen [Mass/Vol] 41 mg/dL High 9 - 24 mg/dL [facility] Comprehensive metabolic 2000 panelon 12-23-2023 Albumin [Mass/Vol] 3.8 g/dL Low 3.9-4.9 [facility] Comment on above: Order Comment: Speci men Type: BLOOD SPECIMENOrdering Facility: [facility] Address: [address] [place] [address] Performed By: #### 2 4323-8 ####[facility] LABCLIA [id number] [place] [address] ALP [Catalytic activity/Vol] 38 U/L Normal 38-113 [facility] Comment on above: Order Comment: Speci men Type: BLOOD SPECIMENOrdering Facility: [facility] Address: [address] [place] [address] Performed By: #### 2 4323-8 ####[facility] LABCLIA [id number] [place] [address] ALT [Catalytic activity/Vol] 14 U/L Normal 10-54 [facility] Comment on above: Order Comment: Speci men Type: BLOOD SPECIMENOrdering Facility: [facility] Address: [address] [place] [address] Performed By: #### 2 4323-8 ####[facility] LABCLIA [id number] [place] [address] Anion gap [Moles/Vol] 8 mmol/L Normal 8-15 [facility] Comment on above: Order Comment: Speci men Type: BLOOD SPECIMENOrdering Facility: [facility] Address: [address] [place] [address] Performed By: #### 2 4323-8 ####[facility] LABCLIA [id number] [place] [address] AST [Catalytic activity/Vol] 15 U/L Normal 14-40 [facility] Comment on above: Order Comment: Speci men Type: BLOOD SPECIMENOrdering Facility: [facility] Address: [address] [place] [address] Performed By: #### 2 4323-8 ####[facility] LABCLIA [id number] [place] [address] Bilirubin [Mass/Vol] 0.6 mg/dL Normal 0.2-1.[address] [facility] Comment on above: Order Comment: Speci men Type: BLOOD SPECIMENOrdering Facility: [facility] Address: [address] [place] [address] Performed By: #### 2 4323-8 ####[facility] LABCLIA [id number] [place] [address] Calcium [Mass/Vol] 9.7 mg/dL Normal 8.5-10.2 [facility] Comment on above: Order Comment: Speci men Type: BLOOD SPECIMENOrdering Facility: [facility] Address: [address] [place] [address] Performed By: #### 2 4323-8 ####[facility] LABCLIA [id number] [place] [address] Chloride [Moles/Vol] 101 mmol/L Normal 98-[address] [facility] Comment on above: Order Comment: Speci men Type: BLOOD SPECIMENOrdering Facility: [facility] Address: [address] [place] [address] Performed By: #### 2 4323-8 ####[facility] LABCLIA [id number] [place] [address] CO2 [Moles/Vol] 26 mmol/L Normal 22-30 [facility] Comment on above: Order Comment: Speci men Type: BLOOD SPECIMENOrdering Facility: [facility] Address: [address] [place] [address] Performed By: #### 2 4323-8 ####[facility] LABCLIA [id number] [place] [address] Creatinine [Mass/Vol] 1.19 mg/dL Normal 0.73-1.22 [facility] Comment on above: Order Comment: Speci men Type: BLOOD SPECIMENOrdering Facility: [facility] Address: [address] [place] [address] Performed By: #### 2 4323-8 ####[facility] LABCLIA [id number] [place] [address] Creatinine and Glomerular filtration rate.predicted panel (S/P/Bld) 67 mL/min/1.73m??? Normal >=60 [facility] Comment on above: Order Comment: Speci men Type: BLOOD SPECIMENOrdering Facility: [facility] Address: [address] [place] [address] Result Comment: Landy mated Glomerular Filtration Rate (eGFR) is calculated using the 2020 CKD-EPI creatinine equation. This equation utilizes serum creatinine, sex, and age as parameters. The creatinine assay has traceable calibration to isotope dilution-mass spectrometry. Refer to KDIGO guidelines for clinical interpretation. In patients with unstable renal function, e.g. those with acute kidney injury, the eGFR may not accurately reflect actual GFR. Performed By: #### 2 4323-8 ####[facility] LABCLIA [id number] [place] [address] Glucose [Mass/Vol] 121 mg/dL High 74-99 [facility] Comment on above: Order Comment: Speci men Type: BLOOD SPECIMENOrdering Facility: [facility] Address: [address] [place] [address] Result Comment: The [place] [employer] (ADA) provides guidance for cutoff values for fasting glucose and random glucose. The ADA defines fasting as no caloric intake for at least 8 hours. Fasting plasma glucose results between 100 to 125 mg/dL indicate increased risk for diabetes (prediabetes).Fasting plasma glucose results greater than or equal to 126 mg/dL meet the criteria for diagnosis of diabetes. In the absence of unequivocal hyperglycemia, results should be confirmed by repeat testing. In a patient with classic symptoms of hyperglycemia or hyperglycemic crisis, random plasma glucose results greater than or equal to 200 mg/dL meet the criteria for diagnosis of diabetes.Reference: Standards of Medical Care in Diabetes 2016, [place] [employer]. Diabetes Care. 2016.39(Suppl 1). Performed By: #### 2 4323-8 ####[facility] LABCLIA [id number] [place] [address] Potassium [Moles/Vol] 3.9 mmol/L Normal 3.7-5.1 [facility] Comment on above: Order Comment: Speci men Type: BLOOD SPECIMENOrdering Facility: [facility] Address: [address] [place], [place] [address] Performed By: #### 2 4323-8 ####[facility] LABCLIA [id number] [place] [address] Protein [Mass/Vol] 6.8 g/dL Normal 6.3-8.0 [facility] Comment on above: Order Comment: Speci men Type: BLOOD SPECIMENOrdering Facility: [facility] Address: [address] [place] [address] Performed By: #### 2 4323-8 ####[facility] LABCLIA [id number] [place] [address] Sodium [Moles/Vol] 135 mmol/L Low 136-144 [facility] Comment on above: Order Comment: Speci men Type: BLOOD SPECIMENOrdering Facility: [facility] Address: [address] [id number] Performed By: #### 2 4323-8 ####[facility] LABCLIA [id number] [place] [address] Urea nitrogen [Mass/Vol] 41 mg/dL High 9-24 [facility] Comment on above: Order Comment: Speci men Type: BLOOD SPECIMENOrdering Facility: [facility] Address: [address] [place] [address] Performed By: #### 2 4323-8 ####[facility] LABCLIA [id number] [place] [address] CNOVon 12-22-2023 CNOV Normal [facility] CNOVon 12-16-2023 CNOV Normal [facility] CNPNon 12-16-2023 CNPN Normal [facility] CNOVon 12-10-2023 CNOV Normal [facility] CNOVon 12-03-2023 CNOV Normal [facility] CNPNon 12-03-2023 CNPN Normal [facility] CNOVon 12-02-2023 CNOV Normal [facility] CNOVSPon 12-02-2023 CNOVSP Normal [facility] CBC W Auto Differential pane l (Bld)on 11-25-2023 Basophils (Bld) [#/Vol] 0.03 10*3/uL Normal <0.11 [facility] Comment on above: Order Comment: Speci men Type: BLOOD SPECIMENOrdering Facility: [facility] Address: [address] [place] [address] Performed By: #### 5 7021-8 ####[facility] LABCLIA [id number] [place] [address] Basophils/100 WBC (Bld) 0.4 % Normal [facility] Comment on above: Order Comment: Speci men Type: BLOOD SPECIMENOrdering Facility: [facility] Address: [address] [place] [address] Performed By: #### 5 7021-8 ####[facility] LABCLIA [id number] [place] [address] Differential cell count method Nom (Bld) Auto Normal [facility] Comment on above: Order Comment: Speci men Type: BLOOD SPECIMENOrdering Facility: [facility] Address: [address] [place] [address] Performed By: #### 5 7021-8 ####[facility] LABCLIA [id number] [place] [address] Eosinophils (Bld) [#/Vol] 0.08 10*3/uL Normal <0.46 [facility] Comment on above: Order Comment: Speci men Type: BLOOD SPECIMENOrdering Facility: [facility] Address: [address] [place] [address] Performed By: #### 5 7021-8 ####[facility] LABCLIA [id number] [place] [address] Eosinophils/100 WBC (Bld) 1.1 % Normal [facility] Comment on above: Order Comment: Speci men Type: BLOOD SPECIMENOrdering Facility: [facility] Address: [address] [place] [address] Performed By: #### 5 7021-8 ####[facility] LABCLIA [id number] [place] [address] Erythrocyte distribution width (RBC) [Ratio] 14.9 % Normal 11.5-15.0 [facility] Comment on above: Order Comment: Speci men Type: BLOOD SPECIMENOrdering Facility: [facility] Address: [address] [place] [address] Performed By: #### 5 7021-8 ####[facility] LABCLIA [id number] [place] [address] Hematocrit (Bld) [Volume fraction] 38.1 % Low 39.0-51.0 [facility] Comment on above: Order Comment: Speci men Type: BLOOD SPECIMENOrdering Facility: [facility] Address: [address] [place] [address] Performed By: #### 5 7021-8 ####[facility] LABCLIA [id number] [place] [address] Hemoglobin (Bld) [Mass/Vol] 12.8 g/dL Low 13.0-17.0 [facility] Comment on above: Order Comment: Speci men Type: BLOOD SPECIMENOrdering Facility: [facility] Address: [address] [place] [address] Performed By: #### 5 7021-8 ####[facility] LABCLIA [id number] [place] [address] Immature granulocytes (Bld) [#/Vol] 0.03 10*3/uL Normal <0.10 [facility] Comment on above: Order Comment: Speci men Type: BLOOD SPECIMENOrdering Facility: [facility] Address: [address] [place] [address] Performed By: #### 5 7021-8 ####[facility] LABCLIA [id number] [place] [address] Immature granulocytes/100 WBC (Bld) 0.4 % Normal [facility] Comment on above: Order Comment: Speci men Type: BLOOD SPECIMENOrdering Facility: [facility] Address: [address] [place] [address] Performed By: #### 5 7021-8 ####[facility] LABCLIA [id number] [place] [address] Lymphocytes (Bld) [#/Vol] 0.66 10*3/uL Low 1.00-4.00 [facility] Comment on above: Order Comment: Speci men Type: BLOOD SPECIMENOrdering Facility: [facility] Address: [address] [place] [address] Performed By: #### 5 7021-8 ####[facility] LABCLIA [id number] [place] [address] Lymphocytes/100 WBC (Bld) 9.4 % Normal [facility] Comment on above: Order Comment: Speci men Type: BLOOD SPECIMENOrdering Facility: [facility] Address: [address] [place] [address] Performed By: #### 5 7021-8 ####[facility] LABCLIA [id number] [place] [address] MCH (RBC) [Entitic mass] 31.0 pg Normal 26.0-34.0 [facility] Comment on above: Order Comment: Speci men Type: BLOOD SPECIMENOrdering Facility: [facility] Address: [address] [place] [address] Performed By: #### 5 7021-8 ####[facility] LABCLIA [id number] [place] [address] MCHC (RBC) [Mass/Vol] 33.6 g/dL Normal 30.5-36.0 [facility] Comment on above: Order Comment: Speci men Type: BLOOD SPECIMENOrdering Facility: [facility] Address: [address] [place] [address] Performed By: #### 5 7021-8 ####[facility] LABCLIA [id number] [place] [address] MCV (RBC) [Entitic vol] 92.3 fL Normal 80.0-100.0 [facility] Comment on above: Order Comment: Speci men Type: BLOOD SPECIMENOrdering Facility: [facility] Address: [address] [place] [address] Performed By: #### 5 7021-8 ####[facility] LABCLIA [id number] [place] [address] Monocytes (Bld) [#/Vol] 1.02 10*3/uL High <0.87 [facility] Comment on above: Order Comment: Speci men Type: BLOOD SPECIMENOrdering Facility: [facility] Address: [address] [place] [address] Performed By: #### 5 7021-8 ####[facility] LABCLIA [id number] [place] [address] Monocytes/100 WBC (Bld) 14.5 % Normal [facility] Comment on above: Order Comment: Speci men Type: BLOOD SPECIMENOrdering Facility: [facility] Address: [address] [place] [address] Performed By: #### 5 7021-8 ####[facility] LABCLIA [id number] [place] [address] Neutrophils (Bld) [#/Vol] 5.22 10*3/uL Normal 1.45-7.50 [facility] Comment on above: Order Comment: Speci men Type: BLOOD SPECIMENOrdering Facility: [facility] Address: [address] [place] [address] Performed By: #### 5 7021-8 ####[facility] LABIA [id number] [place] [address] Neutrophils/100 WBC (Bld) 74.2 % Normal [facility] Comment on above: Order Comment: Speci men Type: BLOOD SPECIMENOrdering Facility: [facility] Address: [address] [place] [address] Performed By: #### 5 7021-8 ####[facility] LABCLIA [id number] [place] [address] Nucleated RBC (Bld) [#/Vol] 10*3/uL Normal <0.01 [facility] Comment on above: Order Comment: Speci men Type: BLOOD SPECIMENOrdering Facility: [facility] Address: [address] [place] [address] Performed By: #### 5 7021-8 ####[facility] LABIA [id number] [place] [address] Nucleated RBC/100 WBC (Bld) [Ratio] 0.0 /100 WBC Normal [facility] Comment on above: Order Comment: Speci men Type: BLOOD SPECIMENOrdering Facility: [facility] Address: [address] [place], [place] [address] Performed By: #### 5 7021-8 ####[facility] LABCLIA [id number] [place] [address] Platelet mean volume (Bld) [Entitic vol] 10.7 fL Normal 9.0-12.7 [facility] Comment on above: Order Comment: Speci men Type: BLOOD SPECIMENOrdering Facility: [facility] Address: [address] [place] [address] Performed By: #### 5 7021-8 ####[facility] LABCLIA [id number] [place] [address] Platelets (Bld) [#/Vol] 225 10*3/uL Normal 150-400 [facility] Comment on above: Order Comment: Speci men Type: BLOOD SPECIMENOrdering Facility: [facility] Address: [address] [place] [address] Performed By: #### 5 7021-8 ####[facility] LABCLIA [id number] [place] [address] RBC (Bld) [#/Vol] 4.13 10*6/uL Low 4.20-6.00 [facility] Comment on above: Order Comment: Speci men Type: BLOOD SPECIMENOrdering Facility: [facility] Address: [address] [place] [address] Performed By: #### 5 7021-8 ####[facility] LABCLIA [id number] [place] [address] WBC (Bld) [#/Vol] 7.04 10*3/uL Normal 3.70-11.00 [facility] Comment on above: Order Comment: Speci men Type: BLOOD SPECIMENOrdering Facility: [facility] Address: [address] [place] [address] Performed By: #### 5 7021-8 ####[facility] LABCLIA [id number] [place] [address] Comprehensive metabolic 2000 panelon 11-25-2023 Albumin [Mass/Vol] 3.8 g/dL Low 3.9-4.9 [facility] Comment on above: Order Comment: Speci men Type: BLOOD SPECIMENOrdering Facility: [facility] Address: [address] [place] [address] Performed By: #### 2 4323-8 ####[facility] LABCLIA [id number] [place] [address] ALP [Catalytic activity/Vol] 51 U/L Normal 38-113 [facility] Comment on above: Order Comment: Speci men Type: BLOOD SPECIMENOrdering Facility: [facility] Address: [address] [place] [address] Performed By: #### 2 4323-8 ####[facility] LABCLIA [id number] [place] [address] ALT [Catalytic activity/Vol] 25 U/L Normal 10-54 [facility] Comment on above: Order Comment: Speci men Type: BLOOD SPECIMENOrdering Facility: [facility] Address: [address] [place] [address] Performed By: #### 2 4323-8 ####[facility] LABCLIA [id number] [place] [address] Anion gap [Moles/Vol] 12 mmol/L Normal 9-18 [facility] Comment on above: Order Comment: Speci men Type: BLOOD SPECIMENOrdering Facility: [facility] Address: [address] [place] [address] Performed By: #### 2 4323-8 ####[facility] LABCLIA [id number] [place] [address] AST [Catalytic activity/Vol] 18 U/L Normal 14-40 [facility] Comment on above: Order Comment: Speci men Type: BLOOD SPECIMENOrdering Facility: [facility] Address: [address] [place] [address] Performed By: #### 2 4323-8 ####[facility] LABCLIA [id number] [place] [address] Bilirubin [Mass/Vol] 0.8 mg/dL Normal 0.2-1.[address] [facility] Comment on above: Order Comment: Speci men Type: BLOOD SPECIMENOrdering Facility: [facility] Address: [address] [place] [address] Performed By: #### 2 4323-8 ####[facility] LABCLIA [id number] [place] [address] Calcium [Mass/Vol] 9.1 mg/dL Normal 8.5-10.2 [facility] Comment on above: Order Comment: Speci men Type: BLOOD SPECIMENOrdering Facility: [facility] Address: [address] [place] [address] Performed By: #### 2 4323-8 ####[facility] LABCLIA [id number] [place] [address] Chloride [Moles/Vol] 100 mmol/L Normal 97-[address] [facility] Comment on above: Order Comment: Speci men Type: BLOOD SPECIMENOrdering Facility: [facility] Address: [address] [place] [address] Performed By: #### 2 4323-8 ####[facility] LABCLIA [id number] [place] [address] CO2 [Moles/Vol] 25 mmol/L Normal 22-30 [facility] Comment on above: Order Comment: Speci men Type: BLOOD SPECIMENOrdering Facility: [facility] Address: [address] [place] [address] Performed By: #### 2 4323-8 ####[facility] LABCLIA [id number] [place] [address] Creatinine [Mass/Vol] 1.20 mg/dL Normal 0.73-1.22 [facility] Comment on above: Order Comment: Speci men Type: BLOOD SPECIMENOrdering Facility: [facility] Address: [address] [place] [address] Performed By: #### 2 4323-8 ####[facility] LABCLIA [id number] [place] [address] Creatinine and Glomerular filtration rate.predicted panel (S/P/Bld) 67 mL/min/1.73m??? Normal >=60 [facility] Comment on above: Order Comment: Speci men Type: BLOOD SPECIMENOrdering Facility: [facility] Address: [address] [place] [address] Result Comment: Landy mated Glomerular Filtration Rate (eGFR) is calculated using the 2020 CKD-EPI creatinine equation. This equation utilizes serum creatinine, sex, and age as parameters. The creatinine assay has traceable calibration to isotope dilution-mass spectrometry. Refer to KDIGO guidelines for clinical interpretation. In patients with unstable renal function, e.g. those with acute kidney injury, the eGFR may not accurately reflect actual GFR. Performed By: #### 2 4323-8 ####[facility] LABCLIA [id number] [place] [address] Glucose [Mass/Vol] 100 mg/dL High 74-99 [facility] Comment on above: Order Comment: Josei shalom Type: BLOOD SPECIMENOrdering Facility: [facility] Address: [address] [place] [address] Result Comment: The [place] [employer] (ADA) provides guidance for cutoff values for fasting glucose and random glucose. The ADA defines fasting as no caloric intake for at least 8 hours. Fasting plasma glucose results between 100 to 125 mg/dL indicate increased risk for diabetes (prediabetes).Fasting plasma glucose results greater than or equal to 126 mg/dL meet the criteria for diagnosis of diabetes. In the absence of unequivocal hyperglycemia, results should be confirmed by repeat testing. In a patient with classic symptoms of hyperglycemia or hyperglycemic crisis, random plasma glucose results greater than or equal to 200 mg/dL meet the criteria for diagnosis of diabetes.Reference: Standards of Medical Care in Diabetes 2016, [place] [employer]. Diabetes Care. 2016.39(Suppl 1). Performed By: #### 2 4323-8 ####[facility] LABCLIA [id number] [place] [address] Potassium [Moles/Vol] 3.9 mmol/L Normal 3.7-5.1 [facility] Comment on above: Order Comment: Speci men Type: BLOOD SPECIMENOrdering Facility: [facility] Address: [address] [place] [address] Performed By: #### 2 4323-8 ####[facility] LABCLIA [id number] [place] [address] Protein [Mass/Vol] 7.3 g/dL Normal 6.3-8.0 [facility] Comment on above: Order Comment: Speci men Type: BLOOD SPECIMENOrdering Facility: [facility] Address: [address] [place] [address] Performed By: #### 2 4323-8 ####[facility] LABCLIA [id number] [place] [address] Sodium [Moles/Vol] 137 mmol/L Normal 136-144 [facility] Comment on above: Order Comment: Speci men Type: BLOOD SPECIMENOrdering Facility: [facility] Address: [address] [place] [address] Performed By: #### 2 4323-8 ####[facility] LABCLIA [id number] [place] [address] Urea nitrogen [Mass/Vol] 15 mg/dL Normal 9-24 [facility] Comment on above: Order Comment: Speci men Type: BLOOD SPECIMENOrdering Facility: [facility] Address: [address] [place] [address] Performed By: #### 2 4323-8 ####[facility] LABIA [id number] [place] [address] NM PET/CT SKULL-THIGH SUBQon 11-25-2023 NM PET/CT SKULL-THIGH SUBQ Normal [facility] TSH SerPl-aCncon 11-25-2023 TSH Qn 3.890 m[IU]/L Normal 0.270-4.200 [facility] Comment on above: Order Comment: Speci men Type: BLOOD SPECIMENOrdering Facility: [facility] Address: [address] [place] [address] Performed By: #### 3 016-3 ####[facility] LABCLIA [id number] [facility] [place] [address] [place] CNPNon 11-24-2023 CNPN Normal [facility] CNOVon 11-21-2023 CNOV Normal [facility] CNPNon 11-11-2023 CNPN Normal [facility] CBC W Auto Differential pane l (Bld)on 11-04-2023 Basophils (Bld) [#/Vol] <0.11 k/uL [facility] Basophils/100 WBC (Bld) 0.4 % [facility] Differential cell count method Nom (Bld) Auto [facility] Eosinophils (Bld) [#/Vol] 0.16 10*3/uL <0.46 k/uL [facility] Eosinophils/100 WBC (Bld) 2.9 % [facility] Erythrocyte distribution width (RBC) [Ratio] 17.0 % High 11.5 - 15.0 % [facility] Hematocrit (Bld) [Volume fraction] 37.1 % Low 39.0 - 51.0 % [facility] Hemoglobin (Bld) [Mass/Vol] 12.5 g/dL Low 13.0 - 17.0 g/dL [facility] Immature granulocytes (Bld) [#/Vol] 0.03 10*3/uL <0.10 k/uL [facility] Immature granulocytes/100 WBC (Bld) 0.5 % [facility] Lymphocytes (Bld) [#/Vol] 0.86 10*3/uL Low 1.00 - 4.00 k/uL [facility] Lymphocytes/100 WBC (Bld) 15.4 % [facility] MCH (RBC) [Entitic mass] 30.9 pg 26.0 - 34.0 pg [facility] MCHC (RBC) [Mass/Vol] 33.7 g/dL 30.5 - 36.0 g/dL [facility] MCV (RBC) [Entitic vol] 91.6 fL 80.0 - 100.0 fL [facility] Monocytes (Bld) [#/Vol] 0.95 10*3/uL High <0.87 k/uL [facility] Monocytes/100 WBC (Bld) 17.0 % [facility] Neutrophils (Bld) [#/Vol] 3.57 10*3/uL 1.45 - 7.50 k/uL [facility] Neutrophils/100 WBC (Bld) 63.8 % [facility] Nucleated RBC (Bld) [#/Vol] <0.01 k/uL [facility] Nucleated RBC/100 WBC (Bld) [Ratio] 0.0 /100 WBC [facility] Platelet mean volume (Bld) [Entitic vol] 10.7 fL 9.0 - 12.7 fL [facility] Platelets (Bld) [#/Vol] 186 10*3/uL 150 - 400 k/uL [facility] RBC (Bld) [#/Vol] 4.05 10*6/uL Low 4.20 - 6.00 m/uL [facility] WBC (Bld) [#/Vol] 5.59 10*3/uL 3.70 - 11.00 k/u L [facility] Basophils (Bld) [#/Vol] 10*3/uL Normal <0.11 [facility] Comment on above: Order Comment: Speci men Type: BLOOD SPECIMENOrdering Facility: [facility] Address: [address] [place] [address] Performed By: #### 5 7021-8 ####[facility] LABCLIA [id number] [place] [address] Basophils/100 WBC (Bld) 0.4 % Normal [facility] Comment on above: Order Comment: Speci men Type: BLOOD SPECIMENOrdering Facility: [facility] Address: [address] [place] [address] Performed By: #### 5 7021-8 ####[facility] LABCLIA [id number] [place] [address] Differential cell count method Nom (Bld) Auto Normal [facility] Comment on above: Order Comment: Speci men Type: BLOOD SPECIMENOrdering Facility: [facility] Address: [address] [place] [address] Performed By: #### 5 7021-8 ####[facility] LABCLIA [id number] [place] [address] Eosinophils (Bld) [#/Vol] 0.16 10*3/uL Normal <0.46 [facility] Comment on above: Order Comment: Speci men Type: BLOOD SPECIMENOrdering Facility: [facility] Address: [address] [place] [address] Performed By: #### 5 7021-8 ####[facility] LABCLIA [id number] [place] [address] Eosinophils/100 WBC (Bld) 2.9 % Normal [facility] Comment on above: Order Comment: Speci men Type: BLOOD SPECIMENOrdering Facility: [facility] Address: [address] [place] [address] Performed By: #### 5 7021-8 ####[facility] LABCLIA [id number] [place] [address] Erythrocyte distribution width (RBC) [Ratio] 17.0 % High 11.5-15.0 [facility] Comment on above: Order Comment: Speci men Type: BLOOD SPECIMENOrdering Facility: [facility] Address: [address] [place] [address] Performed By: #### 5 7021-8 ####[facility] LABCLIA [id number] [place] [address] Hematocrit (Bld) [Volume fraction] 37.1 % Low 39.0-51.0 [facility] Comment on above: Order Comment: Speci men Type: BLOOD SPECIMENOrdering Facility: [facility] Address: [address] [place] [address] Performed By: #### 5 7021-8 ####[facility] LABCLIA [id number] [place] [address] Hemoglobin (Bld) [Mass/Vol] 12.5 g/dL Low 13.0-17.0 [facility] Comment on above: Order Comment: Speci men Type: BLOOD SPECIMENOrdering Facility: [facility] Address: [address] [place] [address] Performed By: #### 5 7021-8 ####[facility] LABCLIA [id number] [place] [address] Immature granulocytes (Bld) [#/Vol] 0.03 10*3/uL Normal <0.10 [facility] Comment on above: Order Comment: Speci men Type: BLOOD SPECIMENOrdering Facility: [facility] Address: [address] [place] [address] Performed By: #### 5 7021-8 ####[facility] LABCLIA [id number] [place] [address] Immature granulocytes/100 WBC (Bld) 0.5 % Normal [facility] Comment on above: Order Comment: Speci men Type: BLOOD SPECIMENOrdering Facility: [facility] Address: [address] [place] [address] Performed By: #### 5 7021-8 ####[facility] LABCLIA [id number] [place] [address] Lymphocytes (Bld) [#/Vol] 0.86 10*3/uL Low 1.00-4.00 [facility] Comment on above: Order Comment: Speci men Type: BLOOD SPECIMENOrdering Facility: [facility] Address: [address] [place] [address] Performed By: #### 5 7021-8 ####[facility] LABCLIA [id number] [place] [address] Lymphocytes/100 WBC (Bld) 15.4 % Normal [facility] Comment on above: Order Comment: Speci men Type: BLOOD SPECIMENOrdering Facility: [facility] Address: [address] [place] [address] Performed By: #### 5 7021-8 ####[facility] LABCLIA [id number] [place] [address] MCH (RBC) [Entitic mass] 30.9 pg Normal 26.0-34.0 [facility] Comment on above: Order Comment: Speci men Type: BLOOD SPECIMENOrdering Facility: [facility] Address: [address] [place] [address] Performed By: #### 5 7021-8 ####[facility] LABCLIA [id number] [place] [address] MCHC (RBC) [Mass/Vol] 33.7 g/dL Normal 30.5-36.0 [facility] Comment on above: Order Comment: Speci men Type: BLOOD SPECIMENOrdering Facility: [facility] Address: [address] [place] [address] Performed By: #### 5 7021-8 ####[facility] LABCLIA [id number] [place] [address] MCV (RBC) [Entitic vol] 91.6 fL Normal 80.0-100.0 [facility] Comment on above: Order Comment: Speci men Type: BLOOD SPECIMENOrdering Facility: [facility] Address: [address] [place] [address] Performed By: #### 5 7021-8 ####[facility] LABCLIA [id number] [place] [address] Monocytes (Bld) [#/Vol] 0.95 10*3/uL High <0.87 [facility] Comment on above: Order Comment: Speci men Type: BLOOD SPECIMENOrdering Facility: [facility] Address: [address] [place] [address] Performed By: #### 5 7021-8 ####[facility] LABCLIA [id number] [place] [address] Monocytes/100 WBC (Bld) 17.0 % Normal [facility] Comment on above: Order Comment: Speci men Type: BLOOD SPECIMENOrdering Facility: [facility] Address: [address] [place] [address] Performed By: #### 5 7021-8 ####[facility] LABCLIA [id number] [place] [address] Neutrophils (Bld) [#/Vol] 3.57 10*3/uL Normal 1.45-7.50 [facility] Comment on above: Order Comment: Speci men Type: BLOOD SPECIMENOrdering Facility: [facility] Address: [address] [place] [address] Performed By: #### 5 7021-8 ####[facility] LABCLIA [id number] [place] [address] Neutrophils/100 WBC (Bld) 63.8 % Normal [facility] Comment on above: Order Comment: Speci men Type: BLOOD SPECIMENOrdering Facility: [facility] Address: [address] [place] [address] Performed By: #### 5 7021-8 ####[facility] LABCLIA [id number] [place] [address] Nucleated RBC (Bld) [#/Vol] 10*3/uL Normal <0.01 [facility] Comment on above: Order Comment: Speci men Type: BLOOD SPECIMENOrdering Facility: [facility] Address: [address] [place] [address] Performed By: #### 5 7021-8 ####[facility] LABCLIA [id number] [place] [address] Nucleated RBC/100 WBC (Bld) [Ratio] 0.0 /100 WBC Normal [facility] Comment on above: Order Comment: Speci men Type: BLOOD SPECIMENOrdering Facility: [facility] Address: [address] [place] [address] Performed By: #### 5 7021-8 ####[facility] LABCLIA [id number] [place] [address] Platelet mean volume (Bld) [Entitic vol] 10.7 fL Normal 9.0-12.7 [facility] Comment on above: Order Comment: Speci men Type: BLOOD SPECIMENOrdering Facility: [facility] Address: [address] [place] [address] Performed By: #### 5 7021-8 ####[facility] LABIA [id number] [place] [address] Platelets (Bld) [#/Vol] 186 10*3/uL Normal 150-400 [facility] Comment on above: Order Comment: Speci men Type: BLOOD SPECIMENOrdering Facility: [facility] Address: [address] [place] [address] Performed By: #### 5 7021-8 ####[facility] LABIA [id number] [place] [address] RBC (Bld) [#/Vol] 4.05 10*6/uL Low 4.20-6.00 [facility] Comment on above: Order Comment: Speci men Type: BLOOD SPECIMENOrdering Facility: [facility] Address: [address] [place] [address] Performed By: #### 5 7021-8 ####[facility] LABIA [id number] [place] [address] WBC (Bld) [#/Vol] 5.59 10*3/uL Normal 3.70-11.00 [facility] Comment on above: Order Comment: Speci men Type: BLOOD SPECIMENOrdering Facility: [facility] Address: [address] [place] [address] Performed By: #### 5 7021-8 ####[facility] LABIA [id number] [place] [address] CNCNPATEDon 11-04-2023 CNCNPATED Normal [facility] CNOVSPon 04-16-2024 CNOVSP Normal [facility] CNPNon 11-04-2023 CNPN Normal [facility] Comprehensive metabolic 2000 panelon 11-04-2023 Albumin [Mass/Vol] 4.0 g/dL 3.9 - 4.9 g/dL [facility] ALP [Catalytic activity/Vol] 65 U/L 38 - 113 U/L [facility] ALT [Catalytic activity/Vol] 415 U/L High 10 - 54 U/L [facility] Anion gap [Moles/Vol] 14 mmol/L 9 - 18 mmol/L [facility] AST [Catalytic activity/Vol] 100 U/L High 14 - 40 U/L [facility] Bilirubin [Mass/Vol] 1.0 mg/dL 0.2 - 1.3 mg/dL [facility] Calcium [Mass/Vol] 9.9 mg/dL 8.5 - 10.2 mg/dL [facility] Chloride [Moles/Vol] 107 mmol/L High 97 - 105 mmol/L [facility] CO2 [Moles/Vol] 23 mmol/L 22 - 30 mmol/L [facility] Creatinine [Mass/Vol] 1.23 mg/dL High 0.73 - 1.22 mg/dL [facility] Estimated Glomerular Filtration Rate 65 mL/min/1.73m >=60 mL/min/1.73m [facility] Glucose [Mass/Vol] 95 mg/dL 74 - 99 mg/dL [facility] Potassium [Moles/Vol] 3.5 mmol/L Low 3.7 - 5.1 mmol/L [facility] Protein [Mass/Vol] 7.3 g/dL 6.3 - 8.0 g/dL [facility] Sodium [Moles/Vol] 144 mmol/L 136 - 144 mmol/L [facility] Urea nitrogen [Mass/Vol] 19 mg/dL 9 - 24 mg/dL [facility] Albumin [Mass/Vol] 4.0 g/dL Normal 3.9-4.9 [facility] Comment on above: Order Comment: Speci men Type: BLOOD SPECIMENOrdering Facility: [facility] Address: [address] [place] [address] Performed By: #### 2 4323-8 ####[facility] LABCLIA [id number] [place] [address] ALP [Catalytic activity/Vol] 65 U/L Normal 38-113 [facility] Comment on above: Order Comment: Speci men Type: BLOOD SPECIMENOrdering Facility: [facility] Address: [address] [place] [address] Performed By: #### 2 4323-8 ####[facility] LABCLIA [id number] [place] [address] ALT [Catalytic activity/Vol] 415 U/L High 10-54 [facility] Comment on above: Order Comment: Speci men Type: BLOOD SPECIMENOrdering Facility: [facility] Address: [address] [place] [address] Performed By: #### 2 4323-8 ####[facility] LABCLIA [id number] [place] [address] Anion gap [Moles/Vol] 14 mmol/L Normal 9-18 [facility] Comment on above: Order Comment: Speci men Type: BLOOD SPECIMENOrdering Facility: [facility] Address: [address] [place] [address] Performed By: #### 2 4323-8 ####[facility] LABCLIA [id number] [place] [address] AST [Catalytic activity/Vol] 100 U/L High 14-40 [facility] Comment on above: Order Comment: Speci men Type: BLOOD SPECIMENOrdering Facility: [facility] Address: [address] [place] [address] Performed By: #### 2 4323-8 ####[facility] LABCLIA [id number] [place] [address] Bilirubin [Mass/Vol] 1.0 mg/dL Normal 0.2-1.[address] [facility] Comment on above: Order Comment: Speci men Type: BLOOD SPECIMENOrdering Facility: [facility] Address: [address] [place] [address] Performed By: #### 2 4323-8 ####[facility] LABCLIA [id number] [place] [address] Calcium [Mass/Vol] 9.9 mg/dL Normal 8.5-10.2 [facility] Comment on above: Order Comment: Speci men Type: BLOOD SPECIMENOrdering Facility: [facility] Address: [address] [place] [address] Performed By: #### 2 4323-8 ####[facility] LABCLIA [id number] [place] [address] Chloride [Moles/Vol] 107 mmol/L High 97-[address] [facility] Comment on above: Order Comment: Speci men Type: BLOOD SPECIMENOrdering Facility: [facility] Address: [address] [place] [address] Performed By: #### 2 4323-8 ####[facility] LABCLIA [id number] [place] [address] CO2 [Moles/Vol] 23 mmol/L Normal 22-30 [facility] Comment on above: Order Comment: Speci men Type: BLOOD SPECIMENOrdering Facility: [facility] Address: [address] [place] [address] Performed By: #### 2 4323-8 ####[facility] LABCLIA [id number] [place] [address] Creatinine [Mass/Vol] 1.23 mg/dL High 0.73-1.22 [facility] Comment on above: Order Comment: Speci men Type: BLOOD SPECIMENOrdering Facility: [facility] Address: [address] [place] [address] Performed By: #### 2 4323-8 ####[facility] LABCLIA [id number] [place] [address] Creatinine and Glomerular filtration rate.predicted panel (S/P/Bld) 65 mL/min/1.73m??? Normal >=60 [facility] Comment on above: Order Comment: Speci men Type: BLOOD SPECIMENOrdering Facility: [facility] Address: [address] [place] [address] Result Comment: Landy mated Glomerular Filtration Rate (eGFR) is calculated using the 2020 CKD-EPI creatinine equation. This equation utilizes serum creatinine, sex, and age as parameters. The creatinine assay has traceable calibration to isotope dilution-mass spectrometry. Refer to KDIGO guidelines for clinical interpretation. In patients with unstable renal function, e.g. those with acute kidney injury, the eGFR may not accurately reflect actual GFR. Performed By: #### 2 4323-8 ####[facility] LABCLIA [id number] [place] [address] Glucose [Mass/Vol] 95 mg/dL Normal 74-99 [facility] Comment on above: Order Comment: Ajay rausch Type: BLOOD SPECIMENOrdering Facility: [facility] Address: [address] [place] [address] Result Comment: The [place] [employer] (ADA) provides guidance for cutoff values for fasting glucose and random glucose. The ADA defines fasting as no caloric intake for at least 8 hours. Fasting plasma glucose results between 100 to 125 mg/dL indicate increased risk for diabetes (prediabetes).Fasting plasma glucose results greater than or equal to 126 mg/dL meet the criteria for diagnosis of diabetes. In the absence of unequivocal hyperglycemia, results should be confirmed by repeat testing. In a patient with classic symptoms of hyperglycemia or hyperglycemic crisis, random plasma glucose results greater than or equal to 200 mg/dL meet the criteria for diagnosis of diabetes.Reference: Standards of Medical Care in Diabetes 2016, [place] [employer]. Diabetes Care. 2016.39(Suppl 1). Performed By: #### 2 4323-8 ####[facility] LABCLIA [id number] [place] [address] Potassium [Moles/Vol] 3.5 mmol/L Low 3.7-5.1 [facility] Comment on above: Order Comment: Ajay rausch Type: BLOOD SPECIMENOrdering Facility: [facility] Address: [address] [place] [address] Performed By: #### 2 4323-8 ####[facility] LABCLIA [id number] [place] [address] Protein [Mass/Vol] 7.3 g/dL Normal 6.3-8.0 [facility] Comment on above: Order Comment: Speci men Type: BLOOD SPECIMENOrdering Facility: [facility] Address: [address] [place] [address] Performed By: #### 2 4323-8 ####[facility] LABCLIA [id number] [place] [address] Sodium [Moles/Vol] 144 mmol/L Normal 136-144 [facility] Comment on above: Order Comment: Speci men Type: BLOOD SPECIMENOrdering Facility: [facility] Address: [address] [place] [address] Performed By: #### 2 4323-8 ####[facility] LABCLIA [id number] [place] [address] Urea nitrogen [Mass/Vol] 19 mg/dL Normal 9-24 [facility] Comment on above: Order Comment: Speci men Type: BLOOD SPECIMENOrdering Facility: [facility] Address: [address] [place] [address] Performed By: #### 2 4323-8 ####[facility] LABCLIA [id number] [place] [address] CNPNon 10-24-2023 CNPN Normal [facility] CNPNon 10-21-2023 CNPN Normal [facility] CT CHEST W IVCONon CT CHEST W IVCON Normal [facility] CT Chest W contrast Anoop [facility] CBC W Auto Differential pane l (Bld)on 10-20-2023 Basophils (Bld) [#/Vol] <0.11 k/uL [facility] Basophils/100 WBC (Bld) 0.4 % [facility] Differential cell count method Nom (Bld) Auto [facility] Eosinophils (Bld) [#/Vol] 0.07 10*3/uL <0.46 k/uL [facility] Eosinophils/100 WBC (Bld) 1.3 % [facility] Erythrocyte distribution width (RBC) [Ratio] 15.9 % High 11.5 - 15.0 % [facility] Hematocrit (Bld) [Volume fraction] 40.6 % 39.0 - 51.0 % [facility] Hemoglobin (Bld) [Mass/Vol] 13.6 g/dL 13.0 - 17.0 g/dL [facility] Immature granulocytes (Bld) [#/Vol] 0.03 10*3/uL <0.10 k/uL [facility] Immature granulocytes/100 WBC (Bld) 0.5 % [facility] Lymphocytes (Bld) [#/Vol] 1.04 10*3/uL 1.00 - 4.00 k/uL [facility] Lymphocytes/100 WBC (Bld) 18.6 % [facility] MCH (RBC) [Entitic mass] 30.4 pg 26.0 - 34.0 pg [facility] MCHC (RBC) [Mass/Vol] 33.5 g/dL 30.5 - 36.0 g/dL [facility] MCV (RBC) [Entitic vol] 90.6 fL 80.0 - 100.0 fL [facility] Monocytes (Bld) [#/Vol] 0.78 10*3/uL <0.87 k/uL [facility] Monocytes/100 WBC (Bld) 13.9 % [facility] Neutrophils (Bld) [#/Vol] 3.66 10*3/uL 1.45 - 7.50 k/uL [facility] Neutrophils/100 WBC (Bld) 65.3 % [facility] Nucleated RBC (Bld) [#/Vol] <0.01 k/uL [facility] Nucleated RBC/100 WBC (Bld) [Ratio] 0.0 /100 WBC [facility] Platelet mean volume (Bld) [Entitic vol] 10.7 fL 9.0 - 12.7 fL [facility] Platelets (Bld) [#/Vol] 214 10*3/uL 150 - 400 k/uL [facility] RBC (Bld) [#/Vol] 4.48 10*6/uL 4.20 - 6.00 m/uL [facility] WBC (Bld) [#/Vol] 5.60 10*3/uL 3.70 - 11.00 k/u L [facility] Basophils (Bld) [#/Vol] 10*3/uL Normal <0.11 [facility] Comment on above: Order Comment: Speci men Type: BLOOD SPECIMENOrdering Facility: [facility] Address: [address] [place] [address] Performed By: #### 5 7021-8 ####[facility] LABCLIA [id number] [place] [address] Basophils/100 WBC (Bld) 0.4 % Normal [facility] Comment on above: Order Comment: Speci men Type: BLOOD SPECIMENOrdering Facility: [facility] Address: [address] [place] [address] Performed By: #### 5 7021-8 ####[facility] LABCLIA [id number] [place] [address] Differential cell count method Nom (Bld) Auto Normal [facility] Comment on above: Order Comment: Speci men Type: BLOOD SPECIMENOrdering Facility: [facility] Address: [address] [place] [address] Performed By: #### 5 7021-8 ####[facility] LABCLIA [id number] [place] [address] Eosinophils (Bld) [#/Vol] 0.07 10*3/uL Normal <0.46 [facility] Comment on above: Order Comment: Speci men Type: BLOOD SPECIMENOrdering Facility: [facility] Address: [address] [place] [address] Performed By: #### 5 7021-8 ####[facility] LABCLIA [id number] [place] [address] Eosinophils/100 WBC (Bld) 1.3 % Normal [facility] Comment on above: Order Comment: Speci men Type: BLOOD SPECIMENOrdering Facility: [facility] Address: [address] [place] [address] Performed By: #### 5 7021-8 ####[facility] LABCLIA [id number] [place] [address] Erythrocyte distribution width (RBC) [Ratio] 15.9 % High 11.5-15.0 [facility] Comment on above: Order Comment: Speci men Type: BLOOD SPECIMENOrdering Facility: [facility] Address: [address] [place] [address] Performed By: #### 5 7021-8 ####[facility] LABCLIA [id number] [place] [address] Hematocrit (Bld) [Volume fraction] 40.6 % Normal 39.0-51.0 [facility] Comment on above: Order Comment: Speci men Type: BLOOD SPECIMENOrdering Facility: [facility] Address: [address] [place] [address] Performed By: #### 5 7021-8 ####[facility] LABCLIA [id number] [place] [address] Hemoglobin (Bld) [Mass/Vol] 13.6 g/dL Normal 13.0-17.0 [facility] Comment on above: Order Comment: Speci men Type: BLOOD SPECIMENOrdering Facility: [facility] Address: [address] [place] [address] Performed By: #### 5 7021-8 ####[facility] LABCLIA [id number] [place] [address] Immature granulocytes (Bld) [#/Vol] 0.03 10*3/uL Normal <0.10 [facility] Comment on above: Order Comment: Speci men Type: BLOOD SPECIMENOrdering Facility: [facility] Address: [address] [place] [address] Performed By: #### 5 7021-8 ####[facility] LABCLIA [id number] [place] [address] Immature granulocytes/100 WBC (Bld) 0.5 % Normal [facility] Comment on above: Order Comment: Speci men Type: BLOOD SPECIMENOrdering Facility: [facility] Address: [address] [place] [address] Performed By: #### 5 7021-8 ####[facility] LABCLIA [id number] [place] [address] Lymphocytes (Bld) [#/Vol] 1.04 10*3/uL Normal 1.00-4.00 [facility] Comment on above: Order Comment: Speci men Type: BLOOD SPECIMENOrdering Facility: [facility] Address: [address] [place] [address] Performed By: #### 5 7021-8 ####[facility] LABCLIA [id number] [place] [address] Lymphocytes/100 WBC (Bld) 18.6 % Normal [facility] Comment on above: Order Comment: Speci men Type: BLOOD SPECIMENOrdering Facility: [facility] Address: [address] [place] [address] Performed By: #### 5 7021-8 ####[facility] LABCLIA [id number] [place] [address] MCH (RBC) [Entitic mass] 30.4 pg Normal 26.0-34.0 [facility] Comment on above: Order Comment: Speci men Type: BLOOD SPECIMENOrdering Facility: [facility] Address: [address] [place] [address] Performed By: #### 5 7021-8 ####[facility] LABCLIA [id number] [place] [address] MCHC (RBC) [Mass/Vol] 33.5 g/dL Normal 30.5-36.0 [facility] Comment on above: Order Comment: Speci men Type: BLOOD SPECIMENOrdering Facility: [facility] Address: [address] [place] [address] Performed By: #### 5 7021-8 ####[facility] LABCLIA [id number] [place] [address] MCV (RBC) [Entitic vol] 90.6 fL Normal 80.0-100.0 [facility] Comment on above: Order Comment: Speci men Type: BLOOD SPECIMENOrdering Facility: [facility] Address: [address] [place] [address] Performed By: #### 5 7021-8 ####[facility] LABCLIA [id number] [place] [address] Monocytes (Bld) [#/Vol] 0.78 10*3/uL Normal <0.87 [facility] Comment on above: Order Comment: Speci men Type: BLOOD SPECIMENOrdering Facility: [facility] Address: [address] [place] [address] Performed By: #### 5 7021-8 ####[facility] LABCLIA [id number] [place] [address] Monocytes/100 WBC (Bld) 13.9 % Normal [facility] Comment on above: Order Comment: Speci men Type: BLOOD SPECIMENOrdering Facility: [facility] Address: [address] [place] [address] Performed By: #### 5 7021-8 ####[facility] LABCLIA [id number] [place] [address] Neutrophils (Bld) [#/Vol] 3.66 10*3/uL Normal 1.45-7.50 [facility] Comment on above: Order Comment: Speci men Type: BLOOD SPECIMENOrdering Facility: [facility] Address: [address] [place] [address] Performed By: #### 5 7021-8 ####[facility] LABCLIA [id number] [place] [address] Neutrophils/100 WBC (Bld) 65.3 % Normal [facility] Comment on above: Order Comment: Speci men Type: BLOOD SPECIMENOrdering Facility: [facility] Address: [address] [place] [address] Performed By: #### 5 7021-8 ####[facility] LABCLIA [id number] [place] [address] Nucleated RBC (Bld) [#/Vol] 10*3/uL Normal <0.01 [facility] Comment on above: Order Comment: Speci men Type: BLOOD SPECIMENOrdering Facility: [facility] Address: [address] [place] [address] Performed By: #### 5 7021-8 ####[facility] LABCLIA [id number] [place] [address] Nucleated RBC/100 WBC (Bld) [Ratio] 0.0 /100 WBC Normal [facility] Comment on above: Order Comment: Speci men Type: BLOOD SPECIMENOrdering Facility: [facility] Address: [address] [place] [address] Performed By: #### 5 7021-8 ####[facility] LABCLIA [id number] [place] [address] Platelet mean volume (Bld) [Entitic vol] 10.7 fL Normal 9.0-12.7 [facility] Comment on above: Order Comment: Speci men Type: BLOOD SPECIMENOrdering Facility: [facility] Address: [address] [place] [address] Performed By: #### 5 7021-8 ####[facility] LABCLIA [id number] [place] [address] Platelets (Bld) [#/Vol] 214 10*3/uL Normal 150-400 [facility] Comment on above: Order Comment: Speci men Type: BLOOD SPECIMENOrdering Facility: [facility] Address: [address] [place] [address] Performed By: #### 5 7021-8 ####[facility] LABCLIA [id number] [place] [address] RBC (Bld) [#/Vol] 4.48 10*6/uL Normal 4.20-6.00 [facility] Comment on above: Order Comment: Speci men Type: BLOOD SPECIMENOrdering Facility: [facility] Address: [address] [place], [place] [address] Performed By: #### 5 7021-8 ####[facility] LABCLIA [id number] [place] [address] WBC (Bld) [#/Vol] 5.60 10*3/uL Normal 3.70-11.00 [facility] Comment on above: Order Comment: Speci men Type: BLOOD SPECIMENOrdering Facility: [facility] Address: [address] [place] [address] Performed By: #### 5 7021-8 ####[facility] LABCLIA [id number] [place] [address] CNOVSPon 10-20-2023 CNOVSP Normal [facility] Comprehensive metabolic 2000 panelon 10-20-2023 Albumin [Mass/Vol] 4.6 g/dL 3.9 - 4.9 g/dL [facility] ALP [Catalytic activity/Vol] 55 U/L 38 - 113 U/L [facility] ALT [Catalytic activity/Vol] 48 U/L 10 - 54 U/L [facility] Anion gap [Moles/Vol] 15 mmol/L 9 - 18 mmol/L [facility] AST [Catalytic activity/Vol] 30 U/L 14 - 40 U/L [facility] Bilirubin [Mass/Vol] 0.6 mg/dL 0.2 - 1.3 mg/dL [facility] Calcium [Mass/Vol] 10.9 mg/dL High 8.5 - 10.2 mg/dL [facility] Chloride [Moles/Vol] 105 mmol/L 97 - 105 mmol/L [facility] CO2 [Moles/Vol] 26 mmol/L 22 - 30 mmol/L [facility] Creatinine [Mass/Vol] 1.28 mg/dL High 0.73 - 1.22 mg/dL [facility] Estimated Glomerular Filtration Rate 62 mL/min/1.73m >=60 mL/min/1.73m [facility] Glucose [Mass/Vol] 95 mg/dL 74 - 99 mg/dL [facility] Potassium [Moles/Vol] 4.2 mmol/L 3.7 - 5.1 mmol/L [facility] Protein [Mass/Vol] 8.0 g/dL 6.3 - 8.0 g/dL [facility] Sodium [Moles/Vol] 146 mmol/L High 136 - 144 mmol/L [facility] Urea nitrogen [Mass/Vol] 25 mg/dL High 9 - 24 mg/dL [facility] Albumin [Mass/Vol] 4.6 g/dL Normal 3.9-4.9 [facility] Comment on above: Order Comment: Speci men Type: BLOOD SPECIMENOrdering Facility: [facility] Address: [address] [place] [address] Performed By: #### 2 4323-8 ####[facility] LABCLIA [id number] [place] [address] ALP [Catalytic activity/Vol] 55 U/L Normal 38-113 [facility] Comment on above: Order Comment: Speci men Type: BLOOD SPECIMENOrdering Facility: [facility] Address: [address] [place] [address] Performed By: #### 2 4323-8 ####[facility] LABCLIA [id number] [place] [address] ALT [Catalytic activity/Vol] 48 U/L Normal 10-54 [facility] Comment on above: Order Comment: Speci men Type: BLOOD SPECIMENOrdering Facility: [facility] Address: [address] [place] [address] Performed By: #### 2 4323-8 ####[facility] LABCLIA [id number] [place] [address] Anion gap [Moles/Vol] 15 mmol/L Normal 9-18 [facility] Comment on above: Order Comment: Speci men Type: BLOOD SPECIMENOrdering Facility: [facility] Address: [address] [place] [address] Performed By: #### 2 4323-8 ####[facility] LABCLIA [id number] [place] [address] AST [Catalytic activity/Vol] 30 U/L Normal 14-40 [facility] Comment on above: Order Comment: Speci men Type: BLOOD SPECIMENOrdering Facility: [facility] Address: [address] [place] [address] Performed By: #### 2 4323-8 ####[facility] LABCLIA [id number] [place] [address] Bilirubin [Mass/Vol] 0.6 mg/dL Normal 0.2-1.[address] [facility] Comment on above: Order Comment: Speci men Type: BLOOD SPECIMENOrdering Facility: [facility] Address: [address] [place] [address] Performed By: #### 2 4323-8 ####[facility] LABCLIA [id number] [place] [address] Calcium [Mass/Vol] 10.9 mg/dL High 8.5-10.2 [facility] Comment on above: Order Comment: Speci men Type: BLOOD SPECIMENOrdering Facility: [facility] Address: [address] [place] [address] Result Comment: RECH ECKED JT Performed By: #### 2 4323-8 ####[facility] LABCLIA [id number] [place] [address] Chloride [Moles/Vol] 105 mmol/L Normal 97-[address] [facility] Comment on above: Order Comment: Speci men Type: BLOOD SPECIMENOrdering Facility: [facility] Address: [address] [place] [address] Performed By: #### 2 4323-8 ####[facility] LABCLIA [id number] [place] [address] CO2 [Moles/Vol] 26 mmol/L Normal 22-30 [facility] Comment on above: Order Comment: Speci men Type: BLOOD SPECIMENOrdering Facility: [facility] Address: [address] [place] [address] Performed By: #### 2 4323-8 ####[facility] LABCLIA [id number] [place] [address] Creatinine [Mass/Vol] 1.28 mg/dL High 0.73-1.22 [facility] Comment on above: Order Comment: Ajay rausch Type: BLOOD SPECIMENOrdering Facility: [facility] Address: [address] [place] [address] Performed By: #### 2 4323-8 ####[facility] LABCLIA [id number] [place] [address] Creatinine and Glomerular filtration rate.predicted panel (S/P/Bld) 62 mL/min/1.73m??? Normal >=60 [facility] Comment on above: Order Comment: Ajay rausch Type: BLOOD SPECIMENOrdering Facility: [facility] Address: [address] [place] [address] Result Comment: Landy mated Glomerular Filtration Rate (eGFR) is calculated using the 2020 CKD-EPI creatinine equation. This equation utilizes serum creatinine, sex, and age as parameters. The creatinine assay has traceable calibration to isotope dilution-mass spectrometry. Refer to KDIGO guidelines for clinical interpretation. In patients with unstable renal function, e.g. those with acute kidney injury, the eGFR may not accurately reflect actual GFR. Performed By: #### 2 4323-8 ####[facility] LABCLIA [id number] [place] [address] Glucose [Mass/Vol] 95 mg/dL Normal 74-99 [facility] Comment on above: Order Comment: Ajay rausch Type: BLOOD SPECIMENOrdering Facility: [facility] Address: [address] [place] [address] Result Comment: The [place] Diabetes [employer] (ADA) provides guidance for cutoff values for fasting glucose and random glucose. The ADA defines fasting as no caloric intake for at least 8 hours. Fasting plasma glucose results between 100 to 125 mg/dL indicate increased risk for diabetes (prediabetes).Fasting plasma glucose results greater than or equal to 126 mg/dL meet the criteria for diagnosis of diabetes. In the absence of unequivocal hyperglycemia, results should be confirmed by repeat testing. In a patient with classic symptoms of hyperglycemia or hyperglycemic crisis, random plasma glucose results greater than or equal to 200 mg/dL meet the criteria for diagnosis of diabetes.Reference: Standards of Medical Care in Diabetes 2016, [place] [employer]. Diabetes Care. 2016.39(Suppl 1). Performed By: #### 2 4323-8 ####[facility] LABCLIA [id number] [place] [address] Potassium [Moles/Vol] 4.2 mmol/L Normal 3.7-5.1 [facility] Comment on above: Order Comment: Speci men Type: BLOOD SPECIMENOrdering Facility: [facility] Address: [address] [place] [address] Performed By: #### 2 4323-8 ####[facility] LABCLIA [id number] [place] [address] Protein [Mass/Vol] 8.0 g/dL Normal 6.3-8.0 [facility] Comment on above: Order Comment: Speci men Type: BLOOD SPECIMENOrdering Facility: [facility] Address: [address] [place] [address] Performed By: #### 2 4323-8 ####[facility] LABCLIA [id number] [place] [address] Sodium [Moles/Vol] 146 mmol/L High 136-144 [facility] Comment on above: Order Comment: Speci men Type: BLOOD SPECIMENOrdering Facility: [facility] Address: [address] [place] [address] Performed By: #### 2 4323-8 ####[facility] LABCLIA [id number] [place] [address] Urea nitrogen [Mass/Vol] 25 mg/dL High 9-24 [facility] Comment on above: Order Comment: Speci men Type: BLOOD SPECIMENOrdering Facility: [facility] Address: [address] [place] [address] Performed By: #### 2 4323-8 ####[facility] LABCLIA [id number] [place] [address] TSH BLDon 10-20-2023 TSH Qn 4.200 m[IU]/L 0.270 - 4.200 mIU/L Cl [facility] TSH SerPl-aCncon 10-20-2023 TSH Qn 4.200 m[IU]/L Normal 0.270-4.200 [facility] Comment on above: Order Comment: Speci men Type: BLOOD SPECIMENOrdering Facility: [facility] Address: [facility] [place] [address] Performed By: #### 3 016-3 ####[facility] LABCLIA [id number] [facility] DORAL [id number] [place] [address] [address] [facility] Ambulatory Visit Summaryon 0 10-15-2023 Ambulatory Visit Summary PEDRO GU :1955 Visit Date:10/15/2023 Ambulatory Visit Instructions Your Diagnosis Pharyngitis Fluid level behind tympanic membrane of both ears BMI 20.0-20.9, adult Former smoker Your Care Team Attending Physician - Enrique Austin Primary Care Physician - Enrique Austin This Is Your Medications List alprazolam (alprazolam 0.25 mg Tab) amoxicillin (amoxicillin 875 mg Tab) atorvastatin (atorvastatin 40 mg Tab) cilostazol (cilostazol 100 mg Tab) clopidogrel (clopidogrel 75 mg Tab) isosorbide mononitrate (isosorbide mononitrate 30 mg ER Tab) levothyroxine (levothyroxine 75 mcg (0.075 mg) Tab) metoprolol (metoprolol 25 mg ER Tab) olanzapine (olanzapine 5 mg oral tablet, disintegrating) sotorasib (Lumakras 320 mg oral tablet) Procedures Performed CABG (Coronary artery bypass grafting) planned, Lobectomy of lung. Discharge Vitals Heart Rate (Peripheral) 78 Respiratory Rate 18 Blood Pressure 118/80 Height 169.5 cm Height 67 in Weight 59.7 kg Weight 131.34 lb BMI 20.78 What to do next Scheduled Follow-Up Appointments 2023 11:20 AM EDT With: Enrique Austin Where: [facility] [place] [address] [place] [address]- \.br\ Medications\.br\ What How Much When Instructions\.br\ Unchanged alprazolam (alprazolam 0.25 mg Tab) 1 Tablets By Mouth 3 times a day as needed for for anxiety\.br\ Unchanged amoxicillin (amoxicillin 875 mg Tab) 1 Tablets By Mouth 2 times a day Duration: 10 Days Pickup at [facility]\.br\ Unchanged atorvastatin (atorvastatin 40 mg Tab) 1 Tablets By Mouth Every day\.br\ Unchanged cilostazol (cilostazol 100 mg Tab) 60 EA, TAKE 1 TABLET BY MOUTH IN THE MORNING AND AT BEDTIME \.br\ Unchanged clopidogrel (clopidogrel 75 mg Tab) 1 Tablets By Mouth Every day\.br\ Unchanged isosorbide mononitrate (isosorbide mononitrate 30 mg ER Tab)\.br\ Unchanged levothyroxine (levothyroxine 75 mcg (0.075 mg) Tab) 1 Tablets By Mouth Every day TAKE 1 TABLET BY MOUTH DAILY \.br\ Unchanged metoprolol (metoprolol 25 mg ER Tab) 1 Tablets By Mouth 2 times a day\.br\ Unchanged olanzapine (olanzapine 5 mg oral tablet, disintegrating) 1 Tablets By Mouth Every day\.br\ Unchanged sotorasib (Lumakras 320 mg oral tablet) 90 tab(s), 0 Refill(s) \.br\ Pharmacy Information\.br\ [facility]: [address] [place], [place] [id number] [phone]\.br\ Medications and Immunizations Administered\.br\ Given\.br\ triamcinolone acetonide 40 mg/mL Inj Susp, 40 mg, IntraMuscular. For: BMI 20.0-20.9, adult, Former smoker\.br\ Allergies\.br\ No Known Allergies\.br\ Problems\.br\ Ongoing - Any problem that you are currently receiving treatment for.\.br\ Anxiety\.br\ CAD (coronary artery disease)\.br\ Chest congestion\.br\ Emphysema lung\.br\ Fluid level behind tympanic membrane of both ears\.br\ Insomnia\.br\ Lung cancer\.br\ Pharyngitis\.br\ Rash\.br\ Patient Survey\.br\ You may receive a survey via text or e-mail asking about your office visit. Please share your experience with us by completing your survey. We appreciate your feedback and thank you for choosing us for your care.\.br\ \.br\ [facility] Consenton 10-15-2023 Consent [id number] #1.00TIFF Normal [facility] Family Medicine Office/Clini c Noteon 10-15-2023 Family Medicine Office/Clinic Note HPI Staff Pedro is a 68 year old male presenting for acute visit Onset: 1.5 weeks Pain Location: throat Relieved by: warm and cold OTC used: throat spray Hx of strep throat: no Questions/Concerns: pt states he has had post nasal drip for about 1.5 weeks and throat is slightly irritated with nasal drainage. denies any fevers History of Present Illness pt presents with sore throat Review of Systems PHQ Score Initial Depression Screen Score: 0 SCORE Physical Exam Vitals & Measurements HR: 78(Peripheral) RR: 18 BP: 118/80 HT: 67 in HT: 169.5 cm WT: 59.7 kg WT: 131.34 lb BMI: 20.78 General: alert, no acute distress ENMT: oral mucosa moist, no pharyngeal erythema or exudate Cardiovascular: regular rate and rhythm, normal peripheral perfusion Respiratory: Lungs CTA, respirations non labored Extremities: no deformity, no trauma Neurological: oriented x 4, LOC appropriate for age, CN II-XII intact, motor strength equal & normal bilaterally, speech normal Assessment/Plan 1. Pharyngitis (J02.9: Acute pharyngitis, unspecified) throat is very painful and red, exudate noted on right tonsil. pt is concerned because this is the area where is cancer started. we will treat for strep throat. he is scheduled to see oncologist on October 19. 2. Fluid level behind tympanic membrane of both ears (H65.93: Unspecified nonsuppurative otitis media, bilateral) JARED TM full of clear fluid . will give kenalog injection in office today 3. BMI 20.0-20.9, adult (Z68.20: Body mass index [BMI] 20.0-20.9, adult) BMI education complete Ordered: triamcinolone, 40 mg = 1 mL, Injection, IntraMuscular, Once, Stop date 10/15/23 12:13:00 EDT, Routine, Start date 10/15/23 12:13:00 EDT, 10/15/23 12:13:00 EDT 4. Former smoker (Z87.891: Personal history of nicotine dependence) continue not smoking Ordered: triamcinolone, 40 mg = 1 mL, Injection, IntraMuscular, Once, Stop date 10/15/23 12:13:00 EDT, Routine, Start date 10/15/23 12:13:00 EDT, 10/15/23 12:13:00 EDT Orders: alprazolam, 0.25 mg = 1 tab(s), Oral, TID, PRN for anxiety, # 30 tab(s), Refills(s) 0, Pharmacy: [facility], 169.6, cm, 03/17/23 10:54:00 EDT, Height/Length Dosing, 62, kg, 03/17/23 10:54:00 EDT, Weight Dosing amoxicillin, 875 mg = 1 tab(s), Oral, BID, X 10 day(s), # 20 tab(s), Refills(s) 0, Pharmacy: [facility], 169.5, cm, 10/15/23 11:53:00 EDT, Height/Length Dosing, 59.7, kg, 10/15/23 11:53:00 EDT, Weight Dosing Follow-up No qualifying data available Problem List/Past Medical History Ongoing Anxiety CAD (coronary artery disease) Chest congestion Emphysema lung Fluid level behind tympanic membrane of both ears Insomnia Lung cancer Pharyngitis Rash Historical No qualifying data Procedure/Surgical History CABG (Coronary artery bypass grafting) planned, Lobectomy of lung. Medications alprazolam 0.25 mg Tab, 0.25 mg= 1 tab(s), Oral, TID, PRN amoxicillin 875 mg Tab, 875 mg= 1 tab(s), Oral, BID atorvastatin 40 mg Tab, 40 mg= 1 tab(s), Oral, Daily cilostazol 100 mg Tab clopidogrel 75 mg Tab, 75 mg= 1 tab(s), Oral, Daily isosorbide mononitrate 30 mg ER Tab levothyroxine 75 mcg (0.075 mg) Tab, 75 mcg= 1 tab(s), Oral, Daily Lumakras 320 mg oral tablet metoprolol 25 mg ER Tab, 25 mg= 1 tab(s), Oral, BID olanzapine 5 mg oral tablet, disintegrating, 5 mg= 1 tab(s), Oral, Daily Allergies No Known Allergies Social History Alcohol Beer, 3-5 times per week, Household alcohol concerns: No., 04/16/2023 Tobacco Former smoker, quit more than 30 days ago Tobacco Use:. Cigarettes, Household tobacco concerns: No., 10/08/2023 Family History Primary malignant neoplasm of lung: Father. Immunizations Vaccine Date Status SARS-CoV-2 (COVID-19) mRNA-1273 vaccine 07/17/2021 Recorded SARS-CoV-2 (COVID-19) mRNA-1273 vaccine 06/19/2021 Recorded SARS-CoV-2 (COVID-19) mRNA-1273 vaccine 12/13/2020 Recorded SARS-CoV-2 (COVID-19) mRNA-1273 vaccine 11/15/2020 Recorded Normal [facility] Comment on above: Result Comment: Elec tronically Signed By: Enrique Austin\.br\Date and Time Signed: 10/15/23 12:20 EDT Ambulatory Visit Summaryon 0 10-08-2023 Ambulatory Visit Summary PEDRO GU :1955 Visit Date:10/08/2023 Ambulatory Visit Instructions Your Diagnosis Anxiety BMI 20.0-20.9, adult Former smoker Your Care Team Attending Physician - Enrique Austin Primary Care Physician - Enrique Austin This Is Your Medications List alprazolam (alprazolam 0.25 mg Tab) alprazolam (alprazolam 0.25 mg Tab) atorvastatin (atorvastatin 40 mg Tab) cilostazol (cilostazol 100 mg Tab) clopidogrel (clopidogrel 75 mg Tab) isosorbide mononitrate (isosorbide mononitrate 30 mg ER Tab) levothyroxine (levothyroxine 75 mcg (0.075 mg) Tab) metoprolol (metoprolol 25 mg ER Tab) olanzapine (olanzapine 5 mg oral tablet, disintegrating) sotorasib (Lumakras 320 mg oral tablet) Procedures Performed CABG (Coronary artery bypass grafting) planned, Lobectomy of lung. Discharge Vitals Heart Rate (Peripheral) 66 Respiratory Rate 18 Blood Pressure 100/68 Height 169.5 cm Height 67 in Weight 58.8 kg Weight 129.36 lb BMI 20.47 What to do next Scheduled Follow-Up Appointments 2023 11:20 AM EDT With: Enrique Austin Where: [address] [address]- \.br\ Medications\.br\ What How Much When Instructions\.br\ Unchanged alprazolam (alprazolam 0.25 mg Tab) 1 Tablets By Mouth 3 times a day as needed for for anxiety Pickup at [facility]\.br\ Unchanged alprazolam (alprazolam 0.25 mg Tab) 1 Tablets By Mouth 3 times a day as needed for for anxiety\.br\ Unchanged atorvastatin (atorvastatin 40 mg Tab) 1 Tablets By Mouth Every day\.br\ Unchanged cilostazol (cilostazol 100 mg Tab) 60 EA, TAKE 1 TABLET BY MOUTH IN THE MORNING AND AT BEDTIME \.br\ Unchanged clopidogrel (clopidogrel 75 mg Tab) 1 Tablets By Mouth Every day\.br\ Unchanged isosorbide mononitrate (isosorbide mononitrate 30 mg ER Tab)\.br\ Unchanged levothyroxine (levothyroxine 75 mcg (0.075 mg) Tab) 1 Tablets By Mouth Every day TAKE 1 TABLET BY MOUTH DAILY \.br\ Unchanged metoprolol (metoprolol 25 mg ER Tab) 1 Tablets By Mouth 2 times a day\.br\ Unchanged olanzapine (olanzapine 5 mg oral tablet, disintegrating) 1 Tablets By Mouth Every day\.br\ Unchanged sotorasib (Lumakras 320 mg oral tablet) 90 tab(s), 0 Refill(s) \.br\ Pharmacy Information\.br\ [facility]: [address] [place], [place] [id number] [phone]\.br\ Allergies\.br\ No Known Allergies\.br\ Problems\.br\ Ongoing - Any problem that you are currently receiving treatment for.\.br\ Anxiety\.br\ CAD (coronary artery disease)\.br\ Chest congestion\.br\ Emphysema lung\.br\ Fluid level behind tympanic membrane of both ears\.br\ Insomnia\.br\ Lung cancer\.br\ Rash\.br\ Patient Survey\.br\ You may receive a survey via text or e-mail asking about your office visit. Please share your experience with us by completing your survey. We appreciate your feedback and thank you for choosing us for your care.\.br\ \.br\ [facility] Family Medicine Office/Clini c Noteon 10-08-2023 Family Medicine Office/Clinic Note HPI Staff Pedro is a 68 year old male presenting for 3 month follow up Follow up for Mental Status: RUCHI 07/09/23 ERIS: 6 Medication adherence- Yes, takes medication as prescribed Medication refill needed: _ Suicidal thoughts-Not at this time Medication Agreement: due today Most recent ERIS: 6 pt states the xanax has been helpful with him being able to sleep. One tumor on left upper chest has been bothering him a lot. History of Present Illness pt presents for med follow up mediation agreement needs updated Review of Systems PHQ Score Initial Depression Screen Score: 0 SCORE Physical Exam Vitals & Measurements HR: 66(Peripheral) RR: 18 BP: 100/68 SpO2: 98% HT: 67 in HT: 169.5 cm WT: 58.8 kg WT: 129.36 lb BMI: 20.47 General: alert, no acute distress ENMT: oral mucosa moist, no pharyngeal erythema or exudate Cardiovascular: regular rate and rhythm, normal peripheral perfusion Respiratory: Lungs CTA, respirations non labored Extremities: no deformity, no trauma Neurological: oriented x 4, LOC appropriate for age, CN II-XII intact, motor strength equal & normal bilaterally, speech normal Assessment/Plan 1. Anxiety (F41.9: Anxiety disorder, unspecified) pt presents today for 3 month med check for xanax. pt is struggling especially at night due to having cancer. he has a mass on his lung that is growing and causing him pain. oncology is treating his pain but the xanax helps him at night when he can't sleep. medication agreement updated. all questions answered. RTC 3 months 2. BMI 20.0-20.9, adult (Z68.20: Body mass index [BMI] 20.0-20.9, adult) BMI education complete 3. Former smoker (Z87.891: Personal history of nicotine dependence) continue not smoking Ordered: predniSONE, 0 = 1 -, Oral, As Directed, Take 5 tabs by mouth daily x3 days, 4 daily x3 days, 3 daily x3 days, 2 daily x3 days, then 1 tab daily x3 days., # 45 tab(s), Refills(s) 0, Pharmacy: [facility], 169.5, cm, 09/02/23 11:42:00 EST, Height/Anuj... Orders: alprazolam, 0.25 mg = 1 tab(s), Oral, TID, PRN for anxiety, # 90 tab(s), Refills(s) 0, Pharmacy: [facility], 169.5, cm, 10/08/23 9:02:00 EDT, Height/Length Dosing, 58.8, kg, 10/08/23 9:02:00 EDT, Weight Dosing Follow-up No qualifying data available Problem List/Past Medical History Ongoing Anxiety CAD (coronary artery disease) Chest congestion Emphysema lung Fluid level behind tympanic membrane of both ears Insomnia Lung cancer Rash Historical No qualifying data Procedure/Surgical History CABG (Coronary artery bypass grafting) planned, Lobectomy of lung. Medications alprazolam 0.25 mg Tab, 0.25 mg= 1 tab(s), Oral, TID, PRN alprazolam 0.25 mg Tab, 0.25 mg= 1 tab(s), Oral, TID, PRN atorvastatin 40 mg Tab, 40 mg= 1 tab(s), Oral, Daily cilostazol 100 mg Tab clopidogrel 75 mg Tab, 75 mg= 1 tab(s), Oral, Daily isosorbide mononitrate 30 mg ER Tab levothyroxine 75 mcg (0.075 mg) Tab, 75 mcg= 1 tab(s), Oral, Daily Lumakras 320 mg oral tablet metoprolol 25 mg ER Tab, 25 mg= 1 tab(s), Oral, BID olanzapine 5 mg oral tablet, disintegrating, 5 mg= 1 tab(s), Oral, Daily Allergies No Known Allergies Social History Alcohol Beer, 3-5 times per week, Household alcohol concerns: No., 04/16/2023 Tobacco Former smoker, quit more than 30 days ago Tobacco Use:. Cigarettes, Household tobacco concerns: No., 10/08/2023 Family History Primary malignant neoplasm of lung: Father. Immunizations Vaccine Date Status SARS-CoV-2 (COVID-19) mRNA-1273 vaccine 07/17/2021 Recorded SARS-CoV-2 (COVID-19) mRNA-1273 vaccine 06/19/2021 Recorded SARS-CoV-2 (COVID-19) mRNA-1273 vaccine 12/13/2020 Recorded SARS-CoV-2 (COVID-19) mRNA-1273 vaccine 11/15/2020 Recorded Normal [facility] Comment on above: Result Comment: Elec tronically Signed By: Enrique Austin\.br\Date and Time Signed: 10/08/23 09:14 EDT Medication Consenton 024 Medication Consent [id number] #1.00TIFF Normal [facility] CBC W Auto Differential pane l (Bld)on 09-22-2023 Basophils (Bld) [#/Vol] 0.03 10*3/uL <0.11 k/uL [facility] Basophils/100 WBC (Bld) 0.7 % [facility] Differential cell count method Nom (Bld) Auto [facility] Eosinophils (Bld) [#/Vol] 0.05 10*3/uL <0.46 k/uL [facility] Eosinophils/100 WBC (Bld) 1.2 % [facility] Erythrocyte distribution width (RBC) [Ratio] 17.0 % High 11.5 - 15.0 % [facility] Hematocrit (Bld) [Volume fraction] 40.7 % 39.0 - 51.0 % [facility] Hemoglobin (Bld) [Mass/Vol] 13.5 g/dL 13.0 - 17.0 g/dL [facility] Immature granulocytes (Bld) [#/Vol] 0.03 10*3/uL <0.10 k/uL [facility] Rehabilitation Immature granulocytes/100 WBC (Bld) 0.7 % [facility] Lymphocytes (Bld) [#/Vol] 0.87 10*3/uL Low 1.00 - 4.00 k/uL [facility] Lymphocytes/100 WBC (Bld) 21.6 % [facility] MCH (RBC) [Entitic mass] 30.2 pg 26.0 - 34.0 pg [facility] MCHC (RBC) [Mass/Vol] 33.2 g/dL 30.5 - 36.0 g/dL [facility] MCV (RBC) [Entitic vol] 91.1 fL 80.0 - 100.0 fL [facility] Monocytes (Bld) [#/Vol] 0.73 10*3/uL <0.87 k/uL [facility] Monocytes/100 WBC (Bld) 18.1 % [facility] Neutrophils (Bld) [#/Vol] 2.32 10*3/uL 1.45 - 7.50 k/uL [facility] Neutrophils/100 WBC (Bld) 57.7 % [facility] Nucleated RBC (Bld) [#/Vol] <0.01 k/uL [facility] Nucleated RBC/100 WBC (Bld) [Ratio] 0.0 /100 WBC [facility] Platelet mean volume (Bld) [Entitic vol] 11.0 fL 9.0 - 12.7 fL [facility] Platelets (Bld) [#/Vol] 180 10*3/uL 150 - 400 k/uL [facility] RBC (Bld) [#/Vol] 4.47 10*6/uL 4.20 - 6.00 m/uL [facility] WBC (Bld) [#/Vol] 4.03 10*3/uL 3.70 - 11.00 k/u L [facility] Basophils (Bld) [#/Vol] 0.03 10*3/uL Normal <0.11 [facility] Comment on above: Order Comment: Speci men Type: BLOOD SPECIMENOrdering Facility: [facility] Address: [address] [place], [place] [address] Performed By: #### 5 7021-8 ####[facility] LABCLIA [id number] [place] [address] Basophils/100 WBC (Bld) 0.7 % Normal [facility] Comment on above: Order Comment: Speci men Type: BLOOD SPECIMENOrdering Facility: [facility] Address: [address] [place] [address] Performed By: #### 5 7021-8 ####[facility] LABCLIA [id number] [place] [address] Differential cell count method Nom (Bld) Auto Normal [facility] Comment on above: Order Comment: Speci men Type: BLOOD SPECIMENOrdering Facility: [facility] Address: [address] [place] [address] Performed By: #### 5 7021-8 ####[facility] LABCLIA [id number] [place] [address] Eosinophils (Bld) [#/Vol] 0.05 10*3/uL Normal <0.46 [facility] Comment on above: Order Comment: Speci men Type: BLOOD SPECIMENOrdering Facility: [facility] Address: [address] [place] [address] Performed By: #### 5 7021-8 ####[facility] LABCLIA [id number] [place] [address] Eosinophils/100 WBC (Bld) 1.2 % Normal [facility] Comment on above: Order Comment: Speci men Type: BLOOD SPECIMENOrdering Facility: [facility] Address: [address] [place] [address] Performed By: #### 5 7021-8 ####[facility] LABCLIA [id number] [place] [address] Erythrocyte distribution width (RBC) [Ratio] 17.0 % High 11.5-15.0 [facility] Comment on above: Order Comment: Speci men Type: BLOOD SPECIMENOrdering Facility: [facility] Address: [address] [place] [address] Performed By: #### 5 7021-8 ####[facility] LABCLIA [id number] [place] [address] Hematocrit (Bld) [Volume fraction] 40.7 % Normal 39.0-51.0 [facility] Comment on above: Order Comment: Speci men Type: BLOOD SPECIMENOrdering Facility: [facility] Address: [address] [place] [address] Performed By: #### 5 7021-8 ####[facility] LABCLIA [id number] [place] [address] Hemoglobin (Bld) [Mass/Vol] 13.5 g/dL Normal 13.0-17.0 [facility] Comment on above: Order Comment: Speci men Type: BLOOD SPECIMENOrdering Facility: [facility] Address: [address] [place] [address] Performed By: #### 5 7021-8 ####[facility] LABCLIA [id number] [place] [address] Immature granulocytes (Bld) [#/Vol] 0.03 10*3/uL Normal <0.10 [facility] Comment on above: Order Comment: Speci men Type: BLOOD SPECIMENOrdering Facility: [facility] Address: [address] [place] [address] Performed By: #### 5 7021-8 ####[facility] LABCLIA [id number] [place] [address] Immature granulocytes/100 WBC (Bld) 0.7 % Normal [facility] Comment on above: Order Comment: Speci men Type: BLOOD SPECIMENOrdering Facility: [facility] Address: [address] [place] [address] Performed By: #### 5 7021-8 ####[facility] LABCLIA [id number] [place] [address] Lymphocytes (Bld) [#/Vol] 0.87 10*3/uL Low 1.00-4.00 [facility] Comment on above: Order Comment: Speci men Type: BLOOD SPECIMENOrdering Facility: [facility] Address: [address] [place] [address] Performed By: #### 5 7021-8 ####[facility] LABCLIA [id number] [place] [address] Lymphocytes/100 WBC (Bld) 21.6 % Normal [facility] Comment on above: Order Comment: Speci men Type: BLOOD SPECIMENOrdering Facility: [facility] Address: [address] [place] [address] Performed By: #### 5 7021-8 ####[facility] LABCLIA [id number] [place] [address] MCH (RBC) [Entitic mass] 30.2 pg Normal 26.0-34.0 [facility] Comment on above: Order Comment: Speci men Type: BLOOD SPECIMENOrdering Facility: [facility] Address: [address] [place] [address] Performed By: #### 5 7021-8 ####[facility] LABCLIA [id number] [place] [address] MCHC (RBC) [Mass/Vol] 33.2 g/dL Normal 30.5-36.0 [facility] Comment on above: Order Comment: Speci men Type: BLOOD SPECIMENOrdering Facility: [facility] Address: [address] [place] [address] Performed By: #### 5 7021-8 ####[facility] LABCLIA [id number] [place] [address] MCV (RBC) [Entitic vol] 91.1 fL Normal 80.0-100.0 [facility] Comment on above: Order Comment: Speci men Type: BLOOD SPECIMENOrdering Facility: [facility] Address: [address] [place] [address] Performed By: #### 5 7021-8 ####[facility] LABCLIA [id number] [place] [address] Monocytes (Bld) [#/Vol] 0.73 10*3/uL Normal <0.87 [facility] Comment on above: Order Comment: Speci men Type: BLOOD SPECIMENOrdering Facility: [facility] Address: [address] [place] [address] Performed By: #### 5 7021-8 ####[facility] LABCLIA [id number] [place] [address] Monocytes/100 WBC (Bld) 18.1 % Normal [facility] Comment on above: Order Comment: Speci men Type: BLOOD SPECIMENOrdering Facility: [facility] Address: [address] [place] [address] Performed By: #### 5 7021-8 ####[facility] LABCLIA [id number] [place] [address] Neutrophils (Bld) [#/Vol] 2.32 10*3/uL Normal 1.45-7.50 [facility] Comment on above: Order Comment: Speci men Type: BLOOD SPECIMENOrdering Facility: [facility] Address: [address] [place] [address] Performed By: #### 5 7021-8 ####[facility] LABCLIA [id number] [place] [address] Neutrophils/100 WBC (Bld) 57.7 % Normal [facility] Comment on above: Order Comment: Speci men Type: BLOOD SPECIMENOrdering Facility: [facility] Address: [address] [place] [address] Performed By: #### 5 7021-8 ####[facility] LABIA [id number] [place] [address] Nucleated RBC (Bld) [#/Vol] 10*3/uL Normal <0.01 [facility] Comment on above: Order Comment: Speci men Type: BLOOD SPECIMENOrdering Facility: [facility] Address: [address] [place] [address] Performed By: #### 5 7021-8 ####[facility] LABCLIA [id number] [place] [address] Nucleated RBC/100 WBC (Bld) [Ratio] 0.0 /100 WBC Normal [facility] Comment on above: Order Comment: Speci men Type: BLOOD SPECIMENOrdering Facility: [facility] Address: [address] [place] [address] Performed By: #### 5 7021-8 ####[facility] LABCLIA [id number] [place] [address] Platelet mean volume (Bld) [Entitic vol] 11.0 fL Normal 9.0-12.7 [facility] Comment on above: Order Comment: Speci men Type: BLOOD SPECIMENOrdering Facility: [facility] Address: [address] [place] [address] Performed By: #### 5 7021-8 ####[facility] LABCLIA [id number] [place] [address] Platelets (Bld) [#/Vol] 180 10*3/uL Normal 150-400 [facility] Comment on above: Order Comment: Speci men Type: BLOOD SPECIMENOrdering Facility: [facility] Address: [address] [place] [address] Performed By: #### 5 7021-8 ####[facility] LABCLIA [id number] [place] [address] RBC (Bld) [#/Vol] 4.47 10*6/uL Normal 4.20-6.00 [facility] Comment on above: Order Comment: Speci men Type: BLOOD SPECIMENOrdering Facility: [facility] Address: [address] [place] [address] Performed By: #### 5 7021-8 ####[facility] LABCLIA [id number] [place] [address] WBC (Bld) [#/Vol] 4.03 10*3/uL Normal 3.70-11.00 [facility] Comment on above: Order Comment: Speci men Type: BLOOD SPECIMENOrdering Facility: [facility] Address: [address] [place] [address] Performed By: #### 5 7021-8 ####[facility] LABCLIA [id number] [place] [address] CNCNPATEDon 09-22-2023 CNCNPATED Normal [facility] CNOVSPon 09-22-2023 CNOVSP Normal [facility] Comprehensive metabolic 2000 panelon 09-22-2023 Albumin [Mass/Vol] 4.4 g/dL 3.9 - 4.9 g/dL [facility] ALP [Catalytic activity/Vol] 47 U/L 38 - 113 U/L [facility] ALT [Catalytic activity/Vol] 19 U/L 10 - 54 U/L [facility] Anion gap [Moles/Vol] 15 mmol/L 9 - 18 mmol/L [facility] AST [Catalytic activity/Vol] 24 U/L 14 - 40 U/L [facility] Bilirubin [Mass/Vol] 0.4 mg/dL 0.2 - 1.3 mg/dL [facility] Calcium [Mass/Vol] 10.1 mg/dL 8.5 - 10.2 mg/dL [facility] Chloride [Moles/Vol] 100 mmol/L 97 - 105 mmol/L [facility] CO2 [Moles/Vol] 25 mmol/L 22 - 30 mmol/L [facility] Creatinine [Mass/Vol] 1.38 mg/dL High 0.73 - 1.22 mg/dL [facility] Estimated Glomerular Filtration Rate 56 mL/min/1.73m Low >=60 mL/min/1.73m [facility] Glucose [Mass/Vol] 107 mg/dL High 74 - 99 mg/dL [facility] Potassium [Moles/Vol] 4.3 mmol/L 3.7 - 5.1 mmol/L [facility] Protein [Mass/Vol] 7.6 g/dL 6.3 - 8.0 g/dL [facility] Sodium [Moles/Vol] 140 mmol/L 136 - 144 mmol/L [facility] Urea nitrogen [Mass/Vol] 30 mg/dL High 9 - 24 mg/dL [facility] Albumin [Mass/Vol] 4.4 g/dL Normal 3.9-4.9 [facility] Comment on above: Order Comment: Speci men Type: BLOOD SPECIMENOrdering Facility: [facility] Address: [address] [place] [address] Performed By: #### 2 4323-8 ####[facility] LABCLIA [id number] [place] [address] ALP [Catalytic activity/Vol] 47 U/L Normal 38-113 [facility] Comment on above: Order Comment: Speci men Type: BLOOD SPECIMENOrdering Facility: [facility] Address: [address] [place] [address] Performed By: #### 2 4323-8 ####[facility] LABCLIA [id number] [place] [address] ALT [Catalytic activity/Vol] 19 U/L Normal 10-54 [facility] Comment on above: Order Comment: Speci men Type: BLOOD SPECIMENOrdering Facility: [facility] Address: [address] [place] [address] Performed By: #### 2 4323-8 ####[facility] LABCLIA [id number] [place] [address] Anion gap [Moles/Vol] 15 mmol/L Normal 9-18 [facility] Comment on above: Order Comment: Speci men Type: BLOOD SPECIMENOrdering Facility: [facility] Address: [address] [place] [address] Performed By: #### 2 4323-8 ####[facility] LABIA [id number] [place] [address] AST [Catalytic activity/Vol] 24 U/L Normal 14-40 [facility] Comment on above: Order Comment: Speci men Type: BLOOD SPECIMENOrdering Facility: [facility] Address: [address] [place] [address] Performed By: #### 2 4323-8 ####[facility] LABCLIA [id number] [place] [address] Bilirubin [Mass/Vol] 0.4 mg/dL Normal 0.2-1.[address] [facility] Comment on above: Order Comment: Speci men Type: BLOOD SPECIMENOrdering Facility: [facility] Address: [address] [place] [address] Performed By: #### 2 4323-8 ####[facility] LABCLIA [id number] [place] [address] Calcium [Mass/Vol] 10.1 mg/dL Normal 8.5-10.2 [facility] Comment on above: Order Comment: Speci men Type: BLOOD SPECIMENOrdering Facility: [facility] Address: [address] [place] [address] Performed By: #### 2 4323-8 ####[facility] LABCLIA [id number] [place] [address] Chloride [Moles/Vol] 100 mmol/L Normal 97-[address] [facility] Comment on above: Order Comment: Speci men Type: BLOOD SPECIMENOrdering Facility: [facility] Address: [address] [place] [address] Performed By: #### 2 4323-8 ####[facility] LABCLIA [id number] [place] [address] CO2 [Moles/Vol] 25 mmol/L Normal 22-30 [facility] Comment on above: Order Comment: Speci men Type: BLOOD SPECIMENOrdering Facility: [facility] Address: [address] [place] [address] Performed By: #### 2 4323-8 ####[facility] LABCLIA [id number] [place] [address] Creatinine [Mass/Vol] 1.38 mg/dL High 0.73-1.22 [facility] Comment on above: Order Comment: Ajay rausch Type: BLOOD SPECIMENOrdering Facility: [facility] Address: [address] [place] [address] Performed By: #### 2 4323-8 ####[facility] LABCLIA [id number] [place] [address] Creatinine and Glomerular filtration rate.predicted panel (S/P/Bld) 56 mL/min/1.73m??? Low >=60 [facility] Comment on above: Order Comment: Speci men Type: BLOOD SPECIMENOrdering Facility: [facility] Address: [address] [place] [address] Result Comment: Landy mated Glomerular Filtration Rate (eGFR) is calculated using the 2020 CKD-EPI creatinine equation. This equation utilizes serum creatinine, sex, and age as parameters. The creatinine assay has traceable calibration to isotope dilution-mass spectrometry. Refer to KDIGO guidelines for clinical interpretation. In patients with unstable renal function, e.g. those with acute kidney injury, the eGFR may not accurately reflect actual GFR. Performed By: #### 2 4323-8 ####[facility] LABCLIA [id number] [place] [address] Glucose [Mass/Vol] 107 mg/dL High 74-99 [facility] Comment on above: Order Comment: Ajay shalom Type: BLOOD SPECIMENOrdering Facility: [facility] Address: [address] [place] [address] Result Comment: The [place] [employer] (ADA) provides guidance for cutoff values for fasting glucose and random glucose. The ADA defines fasting as no caloric intake for at least 8 hours. Fasting plasma glucose results between 100 to 125 mg/dL indicate increased risk for diabetes (prediabetes).Fasting plasma glucose results greater than or equal to 126 mg/dL meet the criteria for diagnosis of diabetes. In the absence of unequivocal hyperglycemia, results should be confirmed by repeat testing. In a patient with classic symptoms of hyperglycemia or hyperglycemic crisis, random plasma glucose results greater than or equal to 200 mg/dL meet the criteria for diagnosis of diabetes.Reference: Standards of Medical Care in Diabetes 2016, [place] [employer]. Diabetes Care. 2016.39(Suppl 1). Performed By: #### 2 4323-8 ####[facility] LABCLIA [id number] [place] [address] Potassium [Moles/Vol] 4.3 mmol/L Normal 3.7-5.1 [facility] Comment on above: Order Comment: Speci men Type: BLOOD SPECIMENOrdering Facility: [facility] Address: [address] [place] [address] Performed By: #### 2 4323-8 ####[facility] LABCLIA [id number] [place] [address] Protein [Mass/Vol] 7.6 g/dL Normal 6.3-8.0 [facility] Comment on above: Order Comment: Speci men Type: BLOOD SPECIMENOrdering Facility: [facility] Address: [address] [place] [address] Performed By: #### 2 4323-8 ####[facility] LABCLIA [id number] [place] [address] Sodium [Moles/Vol] 140 mmol/L Normal 136-144 [facility] Comment on above: Order Comment: Speci men Type: BLOOD SPECIMENOrdering Facility: [facility] Address: [address] [place] [address] Performed By: #### 2 4323-8 ####[facility] LABCLIA [id number] [place] [address] Urea nitrogen [Mass/Vol] 30 mg/dL High 9-24 [facility] Comment on above: Order Comment: Speci men Type: BLOOD SPECIMENOrdering Facility: [facility] Address: [address] [place] [address] Performed By: #### 2 4323-8 ####[facility] LABCLIA [id number] [place] [address] T4/FTI/T4Uon 09-22-2023 FTI 7.1 ug/dL 5.3 - 10.8 ug/dL [facility] T4 [Mass/Vol] 6.1 ug/dL 5.5 - 10.2 ug/dL [facility] T4 uptake [Mass/Vol] 0.86 Low 0.91 - 1.19 [facility] FTI 7.1 ug/dL Normal 5.3-10.8 [facility] Comment on above: Order Comment: Speci men Type: BLOOD SPECIMENOrdering Facility: [facility] Address: [address] [place] [address] Performed By: #### 3 016-3, T4FTI ####[facility] LABIA [id number] [place] [address] [place] T4 [Mass/Vol] 6.1 ug/dL Normal 5.5-10.2 [facility] Comment on above: Order Comment: Speci men Type: BLOOD SPECIMENOrdering Facility: [facility] Address: [address] [place] [address] Performed By: #### 3 016-3, T4FTI ####[facility] [id number] [place] [address] [place] T4 uptake [Mass/Vol] 0.86 Low 0.91-1.[address] [facility] Comment on above: Order Comment: Speci men Type: BLOOD SPECIMENOrdering Facility: [facility] Address: [address] [place] [address] Performed By: #### 3 016-3, T4FTI ####[facility] LABIA [id number] [place] [address] [place] TSH BLDon 09-22-2023 TSH Qn 14.500 m[IU]/L High 0.270 - 4.200 mIU/L [facility] TSH SerPl-aCncon 09-22-2023 TSH Qn 14.500 m[IU]/L High 0.270-4.200 [facility] Comment on above: Order Comment: Speci men Type: BLOOD SPECIMENOrdering Facility: [facility] Address: [address] [place] [address] [place] [address] Performed By: #### 3 016-3, T4FTI ####[facility] LABCLIA [id number] [place] [address] [place] NM PET/CT SKULL-THIGH SUBQon 09-15-2023 NM PET/CT SKULL-THIGH SUBQ Normal [facility] Physician Referralon 024 Physician Referral [id number] #[id number] Normal [facility] Ambulatory Visit Summaryon 0 09-02-2023 Ambulatory Visit Summary PEDRO GU :1955 Visit Date:09/02/2023 Ambulatory Visit Instructions Your Diagnosis Rash BMI 21.0-21.9, adult Former smoker Your Care Team Attending Physician - Enrique Austin Primary Care Physician - Enrique Austin This Is Your Medications List alprazolam (alprazolam 0.25 mg Tab) atorvastatin (atorvastatin 40 mg Tab) cilostazol (cilostazol 100 mg Tab) clopidogrel (clopidogrel 75 mg Tab) isosorbide mononitrate (isosorbide mononitrate 30 mg ER Tab) levothyroxine (levothyroxine 75 mcg (0.075 mg) Tab) metoprolol (metoprolol 25 mg ER Tab) olanzapine (olanzapine 5 mg oral tablet, disintegrating) predniSONE (predniSONE 10 mg Tab) sotorasib (Lumakras 320 mg oral tablet) Procedures Performed CABG (Coronary artery bypass grafting) planned, Lobectomy of lung. Discharge Vitals Heart Rate (Peripheral) 78 Respiratory Rate 18 Blood Pressure 118/76 Height 169.5 cm Height 67 in Weight 61.0 kg Weight 134.2 lb BMI 21.23 What to do next Scheduled Follow-Up Appointments Friday 8:40 AM EDT With: Enrique Austin Where: [facility] Normal [address] [place] [phone] \.br\ Medications\.br\ What How Much When Why Instructions\.br\ New predniSONE (predniSONE 10 mg Tab) 1 Dose Separtor By Mouth As Directed Rash BMI 21.0-21.9, adult Former smoker Take 5 tabs by mouth daily x3 days, 4 daily x3 days, 3 daily x3 days, 2 daily x3 days, then 1 tab daily x3 days. Pickup at [facility]\.br\ Unchanged alprazolam (alprazolam 0.25 mg Tab) 1 Tablets By Mouth 3 times a day as needed for for anxiety\.br\ Unchanged atorvastatin (atorvastatin 40 mg Tab) 1 Tablets By Mouth Every day\.br\ Unchanged cilostazol (cilostazol 100 mg Tab) 60 EA, TAKE 1 TABLET BY MOUTH IN THE MORNING AND AT BEDTIME \.br\ Unchanged clopidogrel (clopidogrel 75 mg Tab) 1 Tablets By Mouth Every day\.br\ Unchanged isosorbide mononitrate (isosorbide mononitrate 30 mg ER Tab)\.br\ Unchanged levothyroxine (levothyroxine 75 mcg (0.075 mg) Tab) 1 Tablets By Mouth Every day TAKE 1 TABLET BY MOUTH DAILY \.br\ Unchanged metoprolol (metoprolol 25 mg ER Tab) 1 Tablets By Mouth 2 times a day\.br\ Unchanged olanzapine (olanzapine 5 mg oral tablet, disintegrating) 1 Tablets By Mouth Every day\.br\ Unchanged sotorasib (Lumakras 320 mg oral tablet) 90 tab(s), 0 Refill(s) \.br\ Pharmacy Information\.br\ [facility]: [address] [place], [place] [id number] [phone]\.br\ Allergies\.br\ No Known Allergies\.br\ Problems\.br\ Ongoing - Any problem that you are currently receiving treatment for.\.br\ Anxiety\.br\ CAD (coronary artery disease)\.br\ Chest congestion\.br\ Emphysema lung\.br\ Fluid level behind tympanic membrane of both ears\.br\ Insomnia\.br\ Lung cancer\.br\ Rash\.br\ Patient Survey\.br\ You may receive a survey via text or e-mail asking about your office visit. Please share your experience with us by completing your survey. We appreciate your feedback and thank you for choosing us for your care.\.br\ \.br\ [facility] Medicine Office/Clini c Noteon 09-02-2023 Family Medicine Office/Clinic Note HPI Staff Pedro is a 68 year old male presenting for acute visit Duration: 4 weeks (RUCHI 08/20/23 Kenalog given, triamcinolone) Location: Back/arms/face Description: red spots Rash symptoms: itching, red, raised found some old cream yesterday he had for a previous rash and applied it last night and did take the itch away Ketoconazole and mometasone furoate History of Present Illness pt presents today with continued rash. he was seen by oncologist yesterday and was told it is not from his chemo Review of Systems PHQ Score Initial Depression Screen Score: 0 SCORE ROS - Provider Constitutional: no fever, no chills, no sweats, no fatigue Respiratory: no shortness of breath, no cough, no orthopnea, no wheezing. Cardiovascular: no chest pain, no palpitations, no edema. Neurologic: no headache, no dizziness, no numbness, no weakness. rash on back upper arms neck and face Physical Exam Vitals & Measurements HR: 78(Peripheral) RR: 18 BP: 118/76 HT: 67 in HT: 169.5 cm WT: 61.0 kg WT: 134.2 lb BMI: 21.23 General: alert, no acute distress ENMT: oral mucosa moist, no pharyngeal erythema or exudate Cardiovascular: regular rate and rhythm, normal peripheral perfusion Respiratory: Lungs CTA, respirations non labored Extremities: no deformity, no trauma Neurological: oriented x 4, LOC appropriate for age, CN II-XII intact, motor strength equal & normal bilaterally, speech normal dry, red, scaly rash Assessment/Plan 1. Rash (R21: Rash and other nonspecific skin eruption) pt continue to have rash. at last visit he had a couple area on his back that were infected from him scratching so much keflex and kenalog injection was ordered. pt states it improved a little but started to get worse and spread this week. pt found creams that mechanic ordered for him and applied it last night. he states it helped with the itch. pt encouraged to continue those creams and high dose oral steroid were also ordered. [facility] is [facility] he has gone before. pt unable to reach his back so the provider coated his rash with both creams before he left the office. RTC as needed Ordered: cephalexin, 500 mg = 1 cap(s), Oral, q12hr, # 20 cap(s), Refills(s) 0, Pharmacy: [facility], 169.5, cm, 08/20/23 11:52:00 EST, Height/Length Dosing, 63.1, kg, 08/20/23 11:52:00 EST, Weight Dosing predniSONE, 0 = 1 -, Oral, As Directed, Take 5 tabs by mouth daily x3 days, 4 daily x3 days, 3 daily x3 days, 2 daily x3 days, then 1 tab daily x3 days., # 45 tab(s), Refills(s) 0, Pharmacy: [facility], 169.5, cm, 09/02/23 11:42:00 EST, Height/Anuj... triamcinolone topical, 1 mark, Topical, BID, 20 gram, Refill(s) 0, [facility], 169.5, cm, 08/20/23 11:52:00 EST, Height/Length Dosing, 63.1, kg, 08/20/23 11:52:00 EST, Weight Dosing [facility] External Ambulatory Referral 2. BMI 21.0-21.9, adult (Z68.21: Body mass index [BMI] 21.0-21.9, adult) BMI education complete Ordered: cephalexin, 500 mg = 1 cap(s), Oral, q12hr, # 20 cap(s), Refills(s) 0, Pharmacy: [facility], 169.5, cm, 08/20/23 11:52:00 EST, Height/Length Dosing, 63.1, kg, 08/20/23 11:52:00 EST, Weight Dosing predniSONE, 0 = 1 -, Oral, As Directed, Take 5 tabs by mouth daily x3 days, 4 daily x3 days, 3 daily x3 days, 2 daily x3 days, then 1 tab daily x3 days., # 45 tab(s), Refills(s) 0, Pharmacy: [facility], 169.5, cm, 09/02/23 11:42:00 EST, Height/Anuj... triamcinolone topical, 1 mark, Topical, BID, 20 gram, Refill(s) 0, [facility], 169.5, cm, 08/20/23 11:52:00 EST, Height/Length Dosing, 63.1, kg, 08/20/23 11:52:00 EST, Weight Dosing [facility] External Ambulatory Referral 3. Former smoker (Z87.891: Personal history of nicotine dependence) continue not smoking Ordered: predniSONE, 0 = 1 -, Oral, As Directed, Take 5 tabs by mouth daily x3 days, 4 daily x3 days, 3 daily x3 days, 2 daily x3 days, then 1 tab daily x3 days., # 45 tab(s), Refills(s) 0, Pharmacy: [facility], 169.5, cm, 09/02/23 11:42:00 EST, Height/Anuj... [facility] External Ambulatory Referral Orders: alprazolam, 0.25 mg = 1 tab(s), Oral, TID, PRN for anxiety, # 60 tab(s), Refills(s) 0, Pharmacy: [facility], 169.6, cm, 07/23/23 10:23:00 EST, Height/Length Dosing, 63, kg, 07/23/23 10:23:00 EST, Weight Dosing methylPREDNISolone, = 1 packet(s), Oral, Once, as directed on package labeling, # 21 tab(s), Refills(s) 0, Pharmacy: [facility], 169.6, cm, 07/23/23 10:23:00 EST, Height/Length Dosing, 63, kg, 07/23/23 10:23:00 EST, Weight Dosing Follow-up No qualifying data available Problem List/Past Medical History Ongoing Anxiety CAD (coronary artery disease) Chest congestion Emphysema lung Fluid level behind tympanic membrane of both ears Insomnia Lung cancer Rash Historical No qualifying data Procedure/Surgical History CABG (Coronary artery bypass grafting) planned (more content not included)... Normal [facility] Comment on above: Result Comment: Elec tronically Signed By: Cate MENARD, Enrique Beatty\.br\Date and Time Signed: 09/02/23 13:02 EST CNPNon 08-26-2023 CNPN Normal [facility] CBC W Auto Differential pane l (Bld)on 08-25-2023 Basophils (Bld) [#/Vol] 0.03 10*3/uL Normal <0.11 [facility] Comment on above: Order Comment: Speci men Type: BLOOD SPECIMENOrdering Facility: [facility] Address: [address] [place] [address] Performed By: #### 5 7021-8 ####[facility] LABCLIA [id number] [place] [address] Basophils/100 WBC (Bld) 0.6 % Normal [facility] Comment on above: Order Comment: Speci men Type: BLOOD SPECIMENOrdering Facility: [facility] Address: [address] [place] [address] Performed By: #### 5 7021-8 ####[facility] LABCLIA [id number] [place] [address] Differential cell count method Nom (Bld) Auto Normal [facility] Comment on above: Order Comment: Speci men Type: BLOOD SPECIMENOrdering Facility: [facility] Address: [address] [place] [address] Performed By: #### 5 7021-8 ####[facility] LABCLIA [id number] [place] [address] Eosinophils (Bld) [#/Vol] 0.16 10*3/uL Normal <0.46 [facility] Comment on above: Order Comment: Speci men Type: BLOOD SPECIMENOrdering Facility: [facility] Address: [address] [place] [address] Performed By: #### 5 7021-8 ####[facility] LABCLIA [id number] [place] [address] Eosinophils/100 WBC (Bld) 3.1 % Normal [facility] Comment on above: Order Comment: Speci men Type: BLOOD SPECIMENOrdering Facility: [facility] Address: [address] [place] [address] Performed By: #### 5 7021-8 ####[facility] LABCLIA [id number] [place] [address] Erythrocyte distribution width (RBC) [Ratio] 14.5 % Normal 11.5-15.0 [facility] Comment on above: Order Comment: Speci men Type: BLOOD SPECIMENOrdering Facility: [facility] Address: [address] [place] [address] Performed By: #### 5 7021-8 ####[facility] LABCLIA [id number] [place] [address] Hematocrit (Bld) [Volume fraction] 39.4 % Normal 39.0-51.0 [facility] Comment on above: Order Comment: Speci men Type: BLOOD SPECIMENOrdering Facility: [facility] Address: [address] [place] [address] Performed By: #### 5 7021-8 ####[facility] LABIA [id number] [place] [address] Hemoglobin (Bld) [Mass/Vol] 13.2 g/dL Normal 13.0-17.0 [facility] Comment on above: Order Comment: Speci men Type: BLOOD SPECIMENOrdering Facility: [facility] Address: [address] [place] [address] Performed By: #### 5 7021-8 ####[facility] LABIA [id number] [place] [address] Immature granulocytes (Bld) [#/Vol] 0.03 10*3/uL Normal <0.10 [facility] Comment on above: Order Comment: Speci men Type: BLOOD SPECIMENOrdering Facility: [facility] Address: [address] [place] [address] Performed By: #### 5 7021-8 ####[facility] LABIA [id number] [place] [address] Immature granulocytes/100 WBC (Bld) 0.6 % Normal [facility] Comment on above: Order Comment: Speci men Type: BLOOD SPECIMENOrdering Facility: [facility] Address: [address] [place] [address] Performed By: #### 5 7021-8 ####[facility] LABCLIA [id number] [place] [address] Lymphocytes (Bld) [#/Vol] 1.08 10*3/uL Normal 1.00-4.00 [facility] Comment on above: Order Comment: Speci men Type: BLOOD SPECIMENOrdering Facility: [facility] Address: [address] [place] [address] Performed By: #### 5 7021-8 ####[facility] LABCLIA [id number] [place] [address] Lymphocytes/100 WBC (Bld) 20.8 % Normal [facility] Comment on above: Order Comment: Speci men Type: BLOOD SPECIMENOrdering Facility: [facility] Address: [address] [place] [address] Performed By: #### 5 7021-8 ####[facility] LABCLIA [id number] [place] [address] MCH (RBC) [Entitic mass] 30.1 pg Normal 26.0-34.0 [facility] Comment on above: Order Comment: Speci men Type: BLOOD SPECIMENOrdering Facility: [facility] Address: [address] [place] [address] Performed By: #### 5 7021-8 ####[facility] LABCLIA [id number] [place] [address] MCHC (RBC) [Mass/Vol] 33.5 g/dL Normal 30.5-36.0 [facility] Comment on above: Order Comment: Speci men Type: BLOOD SPECIMENOrdering Facility: [facility] Address: [address] [place] [address] Performed By: #### 5 7021-8 ####[facility] LABCLIA [id number] [place] [address] MCV (RBC) [Entitic vol] 90.0 fL Normal 80.0-100.0 [facility] Comment on above: Order Comment: Speci men Type: BLOOD SPECIMENOrdering Facility: [facility] Address: [address] [place] [address] Performed By: #### 5 7021-8 ####[facility] LABCLIA [id number] [place] [address] Monocytes (Bld) [#/Vol] 0.58 10*3/uL Normal <0.87 [facility] Comment on above: Order Comment: Speci men Type: BLOOD SPECIMENOrdering Facility: [facility] Address: [address] [place] [address] Performed By: #### 5 7021-8 ####[facility] LABCLIA [id number] [place] [address] Monocytes/100 WBC (Bld) 11.2 % Normal [facility] Comment on above: Order Comment: Speci men Type: BLOOD SPECIMENOrdering Facility: [facility] Address: [address] [place] [address] Performed By: #### 5 7021-8 ####[facility] LABCLIA [id number] [place] [address] Neutrophils (Bld) [#/Vol] 3.31 10*3/uL Normal 1.45-7.50 [facility] Comment on above: Order Comment: Speci men Type: BLOOD SPECIMENOrdering Facility: [facility] Address: [address] [place] [address] Performed By: #### 5 7021-8 ####[facility] LABCLIA [id number] [place] [address] Neutrophils/100 WBC (Bld) 63.7 % Normal [facility] Comment on above: Order Comment: Speci men Type: BLOOD SPECIMENOrdering Facility: [facility] Address: [address] [place] [address] Performed By: #### 5 7021-8 ####[facility] LABCLIA [id number] [place] [address] Nucleated RBC (Bld) [#/Vol] 10*3/uL Normal <0.01 [facility] Comment on above: Order Comment: Speci men Type: BLOOD SPECIMENOrdering Facility: [facility] Address: [address] [place] [address] Performed By: #### 5 7021-8 ####[facility] LABCLIA [id number] [place] [address] Nucleated RBC/100 WBC (Bld) [Ratio] 0.0 /100 WBC Normal [facility] Comment on above: Order Comment: Speci men Type: BLOOD SPECIMENOrdering Facility: [facility] Address: [address] [place] [address] Performed By: #### 5 7021-8 ####[facility] LABIA [id number] [place] [address] Platelet mean volume (Bld) [Entitic vol] 11.2 fL Normal 9.0-12.7 [facility] Comment on above: Order Comment: Speci men Type: BLOOD SPECIMENOrdering Facility: [facility] Address: [address] [place] [address] Performed By: #### 5 7021-8 ####[facility] LABCLIA [id number] [place] [address] Platelets (Bld) [#/Vol] 206 10*3/uL Normal 150-400 [facility] Comment on above: Order Comment: Speci men Type: BLOOD SPECIMENOrdering Facility: [facility] Address: [address] [place] [address] Performed By: #### 5 7021-8 ####[facility] LABCLIA [id number] [place] [address] RBC (Bld) [#/Vol] 4.38 10*6/uL Normal 4.20-6.00 [facility] Comment on above: Order Comment: Speci men Type: BLOOD SPECIMENOrdering Facility: [facility] Address: [address] [place] [address] Performed By: #### 5 7021-8 ####[facility] LABCLIA [id number] [place] [address] WBC (Bld) [#/Vol] 5.19 10*3/uL Normal 3.70-11.00 [facility] Comment on above: Order Comment: Speci men Type: BLOOD SPECIMENOrdering Facility: [facility] Address: [address] [place] [address] Performed By: #### 5 7021-8 ####[facility] LABIA [id number] [place] [address] CNOVSPon 08-25-2023 CNOVSP Normal [facility] Comprehensive metabolic 2000 panelon 08-25-2023 Albumin [Mass/Vol] 4.4 g/dL Normal 3.9-4.9 [facility] Comment on above: Order Comment: Speci men Type: BLOOD SPECIMENOrdering Facility: [facility] Address: [address] [place] [address] Performed By: #### 2 4323-8 ####[facility] LABIA [id number] [place] [address] ALP [Catalytic activity/Vol] 70 U/L Normal 38-113 [facility] Comment on above: Order Comment: Speci men Type: BLOOD SPECIMENOrdering Facility: [facility] Address: [address] [place] [address] Performed By: #### 2 4323-8 ####[facility] LABCLIA [id number] [place] [address] ALT [Catalytic activity/Vol] 25 U/L Normal 10-54 [facility] Comment on above: Order Comment: Speci men Type: BLOOD SPECIMENOrdering Facility: [facility] Address: [address] [place] [address] Performed By: #### 2 4323-8 ####[facility] LABCLIA [id number] [place] [address] Anion gap [Moles/Vol] 13 mmol/L Normal 9-18 [facility] Comment on above: Order Comment: Speci men Type: BLOOD SPECIMENOrdering Facility: [facility] Address: [address] [place] [address] Performed By: #### 2 4323-8 ####[facility] LABCLIA [id number] [place] [address] AST [Catalytic activity/Vol] 33 U/L Normal 14-40 [facility] Comment on above: Order Comment: Speci men Type: BLOOD SPECIMENOrdering Facility: [facility] Address: [address] [place] [address] Performed By: #### 2 4323-8 ####[facility] LABCLIA [id number] [place] [address] Bilirubin [Mass/Vol] 0.3 mg/dL Normal 0.2-1.[address] [facility] Comment on above: Order Comment: Speci men Type: BLOOD SPECIMENOrdering Facility: [facility] Address: [address] [place] [address] Performed By: #### 2 4323-8 ####[facility] LABCLIA [id number] [place] [address] Calcium [Mass/Vol] 10.2 mg/dL Normal 8.5-10.2 [facility] Comment on above: Order Comment: Speci men Type: BLOOD SPECIMENOrdering Facility: [facility] Address: [address] [place] [address] Performed By: #### 2 4323-8 ####[facility] LABCLIA [id number] [place] [address] Chloride [Moles/Vol] 102 mmol/L Normal 97-[address] [facility] Comment on above: Order Comment: Speci men Type: BLOOD SPECIMENOrdering Facility: [facility] Address: [address] [place] [address] Performed By: #### 2 4323-8 ####[facility] LABCLIA [id number] [place] [address] CO2 [Moles/Vol] 25 mmol/L Normal 22-30 [facility] Comment on above: Order Comment: Speci men Type: BLOOD SPECIMENOrdering Facility: [facility] Address: [address] [place] [address] Performed By: #### 2 4323-8 ####[facility] LABCLIA [id number] [place] [address] Creatinine [Mass/Vol] 1.19 mg/dL Normal 0.73-1.22 [facility] Comment on above: Order Comment: Speci men Type: BLOOD SPECIMENOrdering Facility: [facility] Address: [address] [place] [address] Performed By: #### 2 4323-8 ####[facility] LABCLIA [id number] [place] [address] Creatinine and Glomerular filtration rate.predicted panel (S/P/Bld) 67 mL/min/1.73m??? Normal >=60 [facility] Comment on above: Order Comment: Speci men Type: BLOOD SPECIMENOrdering Facility: [facility] Address: [address] [place] [address] Result Comment: Landy mated Glomerular Filtration Rate (eGFR) is calculated using the 2020 CKD-EPI creatinine equation. This equation utilizes serum creatinine, sex, and age as parameters. The creatinine assay has traceable calibration to isotope dilution-mass spectrometry. Refer to KDIGO guidelines for clinical interpretation. In patients with unstable renal function, e.g. those with acute kidney injury, the eGFR may not accurately reflect actual GFR. Performed By: #### 2 4323-8 ####[facility] LABCLIA [id number] [place] [address] Glucose [Mass/Vol] 99 mg/dL Normal 74-99 [facility] Comment on above: Order Comment: Speci men Type: BLOOD SPECIMENOrdering Facility: [facility] Address: [address] [place] [address] Result Comment: The [place] Diabetes [employer] (ADA) provides guidance for cutoff values for fasting glucose and random glucose. The ADA defines fasting as no caloric intake for at least 8 hours. Fasting plasma glucose results between 100 to 125 mg/dL indicate increased risk for diabetes (prediabetes).Fasting plasma glucose results greater than or equal to 126 mg/dL meet the criteria for diagnosis of diabetes. In the absence of unequivocal hyperglycemia, results should be confirmed by repeat testing. In a patient with classic symptoms of hyperglycemia or hyperglycemic crisis, random plasma glucose results greater than or equal to 200 mg/dL meet the criteria for diagnosis of diabetes.Reference: Standards of Medical Care in Diabetes 2016, [place] [employer]. Diabetes Care. 2016.39(Suppl 1). Performed By: #### 2 4323-8 ####[facility] LABCLIA [id number] [place] [address] Potassium [Moles/Vol] 3.8 mmol/L Normal 3.7-5.1 [facility] Comment on above: Order Comment: Speci men Type: BLOOD SPECIMENOrdering Facility: [facility] Address: [address] [place] [address] Performed By: #### 2 4323-8 ####[facility] LABCLIA [id number] [place] [address] Protein [Mass/Vol] 7.9 g/dL Normal 6.3-8.0 [facility] Comment on above: Order Comment: Speci men Type: BLOOD SPECIMENOrdering Facility: [facility] Address: [address] [place], [place] [address] Performed By: #### 2 4323-8 ####[facility] LABCLIA [id number] [place] [address] Sodium [Moles/Vol] 140 mmol/L Normal 136-144 [facility] Comment on above: Order Comment: Speci men Type: BLOOD SPECIMENOrdering Facility: [facility] Address: [address] [place] [address] Performed By: #### 2 4323-8 ####[facility] LABCLIA [id number] [place] [id number] Urea nitrogen [Mass/Vol] 33 mg/dL High 9-24 [facility] Comment on above: Order Comment: Speci men Type: BLOOD SPECIMENOrdering Facility: [facility] Address: [address] [place] [address] Performed By: #### 2 4323-8 ####[facility] LABCLIA [id number] [place] [address] T4/FTI/T4Uon 08-25-2023 FTI 2.0 ug/dL Low 5.3-10.8 [facility] Comment on above: Order Comment: Speci men Type: BLOOD SPECIMENOrdering Facility: [facility] Address: [address] [place] [address] Performed By: #### 3 016-3, T4FTI ####[facility] LABCLIA [id number] [place] [address] [place] T4 [Mass/Vol] 2.3 ug/dL Low 5.5-10.2 [facility] Comment on above: Order Comment: Speci men Type: BLOOD SPECIMENOrdering Facility: [facility] Address: [address] [place] [address] Performed By: #### 3 016-3, T4FTI ####[facility] LABCLIA [id number] [place] [address] [place] T4 uptake [Mass/Vol] 1.14 Normal 0.91-1.[address] [facility] Comment on above: Order Comment: Speci men Type: BLOOD SPECIMENOrdering Facility: [facility] Address: [address] [place], [place] [address], [place] [address] Performed By: #### 3 016-3, T4FTI ####[facility] LABLINUS [id number] [place] [address] [place] TSH SerPl-aCncon 08-25-2023 TSH Qn 109.000 m[IU]/L High 0.270-4.200 [facility] Comment on above: Order Comment: Speci men Type: BLOOD SPECIMENOrdering Facility: [facility] Address: [address] [place] [address] Performed By: #### 3 016-3, T4FTI ####[facility] [id number] [address] [place] Ambulatory Visit Summaryon 0 08-20-2023 Ambulatory Visit Summary PEDRO GU :1955 Visit Date:08/20/2023 Ambulatory Visit Instructions Your Diagnosis Rash Lung cancer BMI 21.0-21.9, adult Your Care Team Attending Physician - Enrique Austin Primary Care Physician - Enrique Austin This Is Your Medications List alprazolam (alprazolam 0.25 mg Tab) alprazolam (alprazolam 0.25 mg Tab) atorvastatin (atorvastatin 40 mg Tab) cephalexin (cephalexin 500 mg Cap) cilostazol (cilostazol 100 mg Tab) clopidogrel (clopidogrel 75 mg Tab) isosorbide mononitrate (isosorbide mononitrate 30 mg ER Tab) methylPREDNISolone (methylPREDNISolone 4 mg tab dosepak) metoprolol (metoprolol 25 mg ER Tab) olanzapine (olanzapine 5 mg oral tablet, disintegrating) sotorasib (Lumakras 320 mg oral tablet) triamcinolone topical (triamcinolone Top 0.5% Crm) Procedures Performed CABG (Coronary artery bypass grafting) planned, Lobectomy of lung. Discharge Vitals Blood Pressure 120/68 Height 169.5 cm Height 67 in Weight 63.1 kg Weight 138.82 lb BMI 21.96 What to do next Scheduled Follow-Up Appointments Friday 8:40 AM EDT With: Enrique Austin Where: [facility] Normal [address] [place] [address]- \.br\ Medications\.br\ What How Much When Why Instructions\.br\ New cephalexin (cephalexin 500 mg Cap) 1 Capsules By Mouth Every 12 hours Rash Lung cancer BMI 21.0-21.9, adult Pickup at [facility]\.br\ New sotorasib (Lumakras 320 mg oral tablet) 90 tab(s), 0 Refill(s) \.br\ New triamcinolone topical (triamcinolone Top 0.5% Crm) 1 Application Topical 2 times a day Rash Lung cancer BMI 21.0-21.9, adult Pickup at [facility]\.br\ Unchanged alprazolam (alprazolam 0.25 mg Tab) 1 Tablets By Mouth 3 times a day as needed for for anxiety\.br\ Unchanged alprazolam (alprazolam 0.25 mg Tab) 1 Tablets By Mouth 3 times a day as needed for for anxiety\.br\ Unchanged atorvastatin (atorvastatin 40 mg Tab) 1 Tablets By Mouth Every day\.br\ Unchanged cilostazol (cilostazol 100 mg Tab) 60 EA, TAKE 1 TABLET BY MOUTH IN THE MORNING AND AT BEDTIME \.br\ Unchanged clopidogrel (clopidogrel 75 mg Tab) 1 Tablets By Mouth Every day\.br\ Unchanged isosorbide mononitrate (isosorbide mononitrate 30 mg ER Tab)\.br\ Unchanged methylPREDNISolone (methylPREDNISolone 4 mg tab dosepak) 1 Packets By Mouth Once as directed on package labeling \.br\ Unchanged metoprolol (metoprolol 25 mg ER Tab) 1 Tablets By Mouth 2 times a day\.br\ Unchanged olanzapine (olanzapine 5 mg oral tablet, disintegrating) 1 Tablets By Mouth Every day\.br\ Pharmacy Information\.br\ [facility]: [address] [place] [id number] [phone]\.br\ Allergies\.br\ No Known Allergies\.br\ Problems\.br\ Ongoing - Any problem that you are currently receiving treatment for.\.br\ Anxiety\.br\ CAD (coronary artery disease)\.br\ Chest congestion\.br\ Emphysema lung\.br\ Fluid level behind tympanic membrane of both ears\.br\ Insomnia\.br\ Lung cancer\.br\ Rash\.br\ Patient Survey\.br\ You may receive a survey via text or e-mail asking about your office visit. Please share your experience with us by completing your survey. We appreciate your feedback and thank you for choosing us for your care.\.br\ \.br\ [facility] 08-20-2023 Consent [phone] [id number] #[id number] Normal [facility] Family Medicine Office/Clini c Noteon 08-20-2023 Family Medicine Office/Clinic Note Chief Complaint rash on back HPI Staff Patient presents for acute visit. Duration: _ 2-3 weeks New or Recurrent: not addressed New Location: back Description: not addressed red spots all over back Rash symptoms: not addressed itchy could not get pulse ox reading as patient's hands were too cold History of Present Illness pt presents today with rash all over his back Review of Systems PHQ Score Initial Depression Screen Score: 0 SCORE ROS - Provider Constitutional: no fever, no chills, no sweats, no fatigue Respiratory: no shortness of breath, no cough, no orthopnea, no wheezing. Cardiovascular: no chest pain, no palpitations, no edema. Neurologic: no headache, no dizziness, no numbness, no weakness. Physical Exam Vitals & Measurements BP: 120/68 HT: 67 in HT: 169.5 cm WT: 63.1 kg WT: 138.82 lb BMI: 21.96 General: alert, no acute distress ENMT: oral mucosa moist, no pharyngeal erythema or exudate Cardiovascular: regular rate and rhythm, normal peripheral perfusion Respiratory: Lungs CTA, respirations non labored Extremities: no deformity, no trauma Neurological: oriented x 4, LOC appropriate for age, CN II-XII intact, motor strength equal & normal bilaterally, speech normal Assessment/Plan 1. Rash (R21: Rash and other nonspecific skin eruption) pt presents today with red, raised, itchy rash all over his back. he has been scratching so badly that some areas are raw bloody and infected. pt had similar rash on his neck, face and arms a few months ago. will give kenalog in office today and will order triamcinolone cream. if this does not heal it up, will refer to derm. pt states he has had weird rashes in the past and went to Dr. Swann for derm. RTC as needed Ordered: cephalexin, 500 mg = 1 cap(s), Oral, q12hr, # 20 cap(s), Refills(s) 0, Pharmacy: [facility], 169.5, cm, 08/20/23 11:52:00 EST, Height/Length Dosing, 63.1, kg, 08/20/23 11:52:00 EST, Weight Dosing triamcinolone, 60 mg = 1.5 mL, Injection, IntraARTICULAR, Once, Stop date 08/20/23 12:17:00 EST, Routine, Start date 08/20/23 12:17:00 EST, 08/20/23 12:17:00 EST triamcinolone topical, 1 mark, Topical, BID, 20 gram, Refill(s) 0, [facility], 169.5, cm, 08/20/23 11:52:00 EST, Height/Length Dosing, 63.1, kg, 08/20/23 11:52:00 EST, Weight Dosing 2. Lung cancer (C34.90: Malignant neoplasm of unspecified part of unspecified bronchus or lung) pt still taking oral treatment Ordered: cephalexin, 500 mg = 1 cap(s), Oral, q12hr, # 20 cap(s), Refills(s) 0, Pharmacy: [facility], 169.5, cm, 08/20/23 11:52:00 EST, Height/Length Dosing, 63.1, kg, 08/20/23 11:52:00 EST, Weight Dosing triamcinolone topical, 1 mark, Topical, BID, 20 gram, Refill(s) 0, [facility], 169.5, cm, 08/20/23 11:52:00 EST, Height/Length Dosing, 63.1, kg, 08/20/23 11:52:00 EST, Weight Dosing 3. BMI 21.0-21.9, adult (Z68.21: Body mass index [BMI] 21.0-21.9, adult) BMI education complete Ordered: cephalexin, 500 mg = 1 cap(s), Oral, q12hr, # 20 cap(s), Refills(s) 0, Pharmacy: [facility], 169.5, cm, 08/20/23 11:52:00 EST, Height/Length Dosing, 63.1, kg, 08/20/23 11:52:00 EST, Weight Dosing triamcinolone topical, 1 mark, Topical, BID, 20 gram, Refill(s) 0, [facility], 169.5, cm, 08/20/23 11:52:00 EST, Height/Length Dosing, 63.1, kg, 08/20/23 11:52:00 EST, Weight Dosing Body Mass Index (BMI) documented 3008F Current tobacco non-user 1036F Depression Screening Negative 3352F Medication list documented in medical record 1159F Patient screen for fall risk: no falls in last year or 1 fall with no injury in last year 1101F Follow-up No qualifying data available Problem List/Past Medical History Ongoing Anxiety CAD (coronary artery disease) Chest congestion Emphysema lung Fluid level behind tympanic membrane of both ears Insomnia Lung cancer Rash Historical No qualifying data Procedure/Surgical History CABG (Coronary artery bypass grafting) planned, Lobectomy of lung. Medications alprazolam 0.25 mg Tab, 0.25 mg= 1 tab(s), Oral, TID, PRN alprazolam 0.25 mg Tab, 0.25 mg= 1 tab(s), Oral, TID, PRN atorvastatin 40 mg Tab, 40 mg= 1 tab(s), Oral, Daily cephalexin 500 mg Cap, 500 mg= 1 cap(s), Oral, q12hr cilostazol 100 mg Tab clopidogrel 75 mg Tab, 75 mg= 1 tab(s), Oral, Daily isosorbide mononitrate 30 mg ER Tab Lumakras 320 mg oral tablet methylPREDNISolone 4 mg tab dosepak, 1 packet(s), Oral, Once metoprolol 25 mg ER Tab, 25 mg= 1 tab(s), Oral, BID olanzapine 5 mg oral tablet, disintegrating, 5 mg= 1 tab(s), Oral, Daily triamcinolone Top 0.5% Crm, 1 mark, Topical, BID Allergies No Known Allergies Social History Alcohol Beer, 3-5 times per week, Household alcohol concerns: No., 04/16/2023 Tobacco Former smoker, quit more than 30 days ago Tobacco Use:. Cigarettes, Household tobacco concerns: No., 08/20/2023 Family History Primary malignant neoplas (more content not included)... Normal [facility] Comment on above: Result Comment: Elec tronically Signed By: Enrique Austin\.br\Date and Time Signed: 08/20/23 12:47 EST CNOVon 08-15-2023 CNOV Normal [facility] CNPNon 08-11-2023 CNPN Normal [facility] CNOVon 08-08-2023 CNOV Normal [facility] CBC W Auto Differential pane l (Bld)on 07-28-2023 Basophils (Bld) [#/Vol] 0.03 10*3/uL Normal <0.11 [facility] Comment on above: Order Comment: Speci men Type: BLOOD SPECIMENOrdering Facility: [facility] Address: [address] [place] [address] Performed By: #### 5 7021-8 ####[facility] LABIA [id number] [place] [address] Basophils/100 WBC (Bld) 0.4 % Normal [facility] Comment on above: Order Comment: Speci men Type: BLOOD SPECIMENOrdering Facility: [facility] Address: [address] [place] [address] Performed By: #### 5 7021-8 ####[facility] LABCLIA [id number] [place] [address] Differential cell count method Nom (Bld) Auto Normal [facility] Comment on above: Order Comment: Speci men Type: BLOOD SPECIMENOrdering Facility: [facility] Address: [address] [place] [address] Performed By: #### 5 7021-8 ####[facility] LABCLIA [id number] [place] [address] Eosinophils (Bld) [#/Vol] 0.18 10*3/uL Normal <0.46 [facility] Comment on above: Order Comment: Speci men Type: BLOOD SPECIMENOrdering Facility: [facility] Address: [address] [place] [address] Performed By: #### 5 7021-8 ####[facility] LABCLIA [id number] [place] [address] Eosinophils/100 WBC (Bld) 2.6 % Normal [facility] Comment on above: Order Comment: Speci men Type: BLOOD SPECIMENOrdering Facility: [facility] Address: [address] [place] [address] Performed By: #### 5 7021-8 ####[facility] LABCLIA [id number] [place] [address] Erythrocyte distribution width (RBC) [Ratio] 13.2 % Normal 11.5-15.0 [facility] Comment on above: Order Comment: Speci men Type: BLOOD SPECIMENOrdering Facility: [facility] Address: [address] [place] [address] Performed By: #### 5 7021-8 ####[facility] LABCLIA [id number] [place] [address] Hematocrit (Bld) [Volume fraction] 35.5 % Low 39.0-51.0 [facility] Comment on above: Order Comment: Speci men Type: BLOOD SPECIMENOrdering Facility: [facility] Address: [address] [place] [address] Performed By: #### 5 7021-8 ####[facility] LABCLIA [id number] [place] [address] Hemoglobin (Bld) [Mass/Vol] 12.0 g/dL Low 13.0-17.0 [facility] Comment on above: Order Comment: Speci men Type: BLOOD SPECIMENOrdering Facility: [facility] Address: [address] [place] [address] Performed By: #### 5 7021-8 ####[facility] LABCLIA [id number] [place] [address] Immature granulocytes (Bld) [#/Vol] 0.04 10*3/uL Normal <0.10 [facility] Comment on above: Order Comment: Speci men Type: BLOOD SPECIMENOrdering Facility: [facility] Address: [address] [place] [address] Performed By: #### 5 7021-8 ####[facility] LABCLIA [id number] [place] [address] Immature granulocytes/100 WBC (Bld) 0.6 % Normal [facility] Comment on above: Order Comment: Speci men Type: BLOOD SPECIMENOrdering Facility: [facility] Address: [address] [place] [address] Performed By: #### 5 7021-8 ####[facility] LABCLIA [id number] [place] [address] Lymphocytes (Bld) [#/Vol] 1.31 10*3/uL Normal 1.00-4.00 [facility] Comment on above: Order Comment: Speci men Type: BLOOD SPECIMENOrdering Facility: [facility] Address: [address] [place] [address] Performed By: #### 5 7021-8 ####[facility] LABCLIA [id number] [place] [address] Lymphocytes/100 WBC (Bld) 19.2 % Normal [facility] Comment on above: Order Comment: Speci men Type: BLOOD SPECIMENOrdering Facility: [facility] Address: [address] [place] [address] Performed By: #### 5 7021-8 ####[facility] LABCLIA [id number] [place] [address] MCH (RBC) [Entitic mass] 30.4 pg Normal 26.0-34.0 [facility] Comment on above: Order Comment: Speci men Type: BLOOD SPECIMENOrdering Facility: [facility] Address: [address] [place] [address] Performed By: #### 5 7021-8 ####[facility] LABCLIA [id number] [place] [address] MCHC (RBC) [Mass/Vol] 33.8 g/dL Normal 30.5-36.0 [facility] Comment on above: Order Comment: Speci men Type: BLOOD SPECIMENOrdering Facility: [facility] Address: [address] [place] [address] Performed By: #### 5 7021-8 ####[facility] LABCLIA [id number] [place] [address] MCV (RBC) [Entitic vol] 89.9 fL Normal 80.0-100.0 [facility] Comment on above: Order Comment: Speci men Type: BLOOD SPECIMENOrdering Facility: [facility] Address: [address] [place] [address] Performed By: #### 5 7021-8 ####[facility] LABCLIA [id number] [place] [address] Monocytes (Bld) [#/Vol] 0.77 10*3/uL Normal <0.87 [facility] Comment on above: Order Comment: Speci men Type: BLOOD SPECIMENOrdering Facility: [facility] Address: [address] [place] [address] Performed By: #### 5 7021-8 ####[facility] LABCLIA [id number] [place] [address] Monocytes/100 WBC (Bld) 11.3 % Normal [facility] Comment on above: Order Comment: Speci men Type: BLOOD SPECIMENOrdering Facility: [facility] Address: [address] [place] [address] Performed By: #### 5 7021-8 ####[facility] LABCLIA [id number] [place] [address] Neutrophils (Bld) [#/Vol] 4.49 10*3/uL Normal 1.45-7.50 [facility] Comment on above: Order Comment: Speci men Type: BLOOD SPECIMENOrdering Facility: [facility] Address: [address] [place] [address] Performed By: #### 5 7021-8 ####[facility] LABCLIA [id number] [place] [address] Neutrophils/100 WBC (Bld) 65.9 % Normal [facility] Comment on above: Order Comment: Speci men Type: BLOOD SPECIMENOrdering Facility: [facility] Address: [address] [place] [address] Performed By: #### 5 7021-8 ####[facility] LABCLIA [id number] [place] [address] Nucleated RBC (Bld) [#/Vol] 10*3/uL Normal <0.01 [facility] Comment on above: Order Comment: Speci men Type: BLOOD SPECIMENOrdering Facility: [facility] Address: [address] [place] [address] Performed By: #### 5 7021-8 ####[facility] LABCLIA [id number] [place] [address] Nucleated RBC/100 WBC (Bld) [Ratio] 0.0 /100 WBC Normal [facility] Comment on above: Order Comment: Speci men Type: BLOOD SPECIMENOrdering Facility: [facility] Address: [address] [place] [address] Performed By: #### 5 7021-8 ####[facility] LABCLIA [id number] [place] [address] Platelet mean volume (Bld) [Entitic vol] 10.5 fL Normal 9.0-12.7 [facility] Comment on above: Order Comment: Speci men Type: BLOOD SPECIMENOrdering Facility: [facility] Address: [address] [place] [address] Performed By: #### 5 7021-8 ####[facility] LABCLIA [id number] [place] [address] Platelets (Bld) [#/Vol] 265 10*3/uL Normal 150-400 [facility] Comment on above: Order Comment: Speci men Type: BLOOD SPECIMENOrdering Facility: [facility] Address: [address] [place] [address] Performed By: #### 5 7021-8 ####[facility] LABCLIA [id number] [place] [address] RBC (Bld) [#/Vol] 3.95 10*6/uL Low 4.20-6.00 [facility] Comment on above: Order Comment: Speci men Type: BLOOD SPECIMENOrdering Facility: [facility] Address: [address] [place] [address] Performed By: #### 5 7021-8 ####[facility] LABIA [id number] [place] [address] WBC (Bld) [#/Vol] 6.82 10*3/uL Normal 3.70-11.00 [facility] Comment on above: Order Comment: Speci men Type: BLOOD SPECIMENOrdering Facility: [facility] Address: [address] [place] [address] Performed By: #### 5 7021-8 ####[facility] LABIA [id number] [place] [address] CNOVSPon 07-28-2023 CNOVSP Normal [facility] Ambulatory Visit Summaryon 0 07-23-2023 Ambulatory Visit Summary PEDRO GU :1955 Visit Date:07/23/2023 Ambulatory Visit Instructions Your Diagnosis BMI 21.0-21.9, adult Former smoker Your Care Team Attending Physician - Enrique Austin Primary Care Physician - Enrique Austin This Is Your Medications List alprazolam (alprazolam 0.25 mg Tab) atorvastatin (atorvastatin 40 mg Tab) cilostazol (cilostazol 100 mg Tab) clopidogrel (clopidogrel 75 mg Tab) isosorbide mononitrate (isosorbide mononitrate 30 mg ER Tab) metoprolol (metoprolol 25 mg ER Tab) olanzapine (olanzapine 5 mg oral tablet, disintegrating) Procedures Performed CABG (Coronary artery bypass grafting) planned, Lobectomy of lung. Discharge Vitals Heart Rate (Peripheral) 88 Respiratory Rate 18 Blood Pressure 110/68 Height 169.6 cm Height 67 in Weight 63.0 kg Weight 138.6 lb BMI 21.9 What to do next Scheduled Follow-Up Appointments Friday 9:00 AM EDT With: Enrique Austin Where: [facility] Normal [address] [phone] \.br\ Medications\.br\ What How Much When Instructions\.br\ Changed alprazolam (alprazolam 0.25 mg Tab) 1 Tablets By Mouth 3 times a day as needed for for anxiety\.br\ Unchanged atorvastatin (atorvastatin 40 mg Tab) 1 Tablets By Mouth Every day\.br\ Unchanged cilostazol (cilostazol 100 mg Tab) 60 EA, TAKE 1 TABLET BY MOUTH IN THE MORNING AND AT BEDTIME \.br\ Unchanged clopidogrel (clopidogrel 75 mg Tab) 1 Tablets By Mouth Every day\.br\ Unchanged isosorbide mononitrate (isosorbide mononitrate 30 mg ER Tab)\.br\ Unchanged metoprolol (metoprolol 25 mg ER Tab) 1 Tablets By Mouth 2 times a day\.br\ Unchanged olanzapine (olanzapine 5 mg oral tablet, disintegrating) 1 Tablets By Mouth Every day\.br\ Allergies\.br\ No Known Allergies\.br\ Problems\.br\ Ongoing - Any problem that you are currently receiving treatment for.\.br\ Anxiety\.br\ CAD (coronary artery disease)\.br\ Emphysema lung\.br\ Fluid level behind tympanic membrane of both ears\.br\ Insomnia\.br\ Lung cancer\.br\ Rash\.br\ Patient Survey\.br\ You may receive a survey via text or e-mail asking about your office visit. Please share your experience with us by completing your survey. We appreciate your feedback and thank you for choosing us for your care.\.br\ \.br\ [facility] Medicine Office/Clini c Noteon 07-23-2023 [facility] Medicine Office/Clinic Note HPI Staff Vasqeuz is a 68 year old male presenting for acute sick visit Respiratory C/O: Onset: 1 week ago Body aches: no Chest congestion: yes Chills: no Cough: yes Sputum production: yes green Sore throat: no Ear complaints: no Eye itching/watering: no Fever: no Headache: no Nasal congestion: no Nasal discharge: yes Poor appetite: no Reduced activity: no Sinus pain/pressure: no Sneezing: no Wheezing: no Ill contacts: no Remedies tried: Alk Questions/Concerns: Rash 1 week ago around neck, itches/mayo, washed with soap and water. Pt c/o dry mouth and dry lips pt needs refill on Xanax History of Present Illness pt presents today with cough and chest congestion and rash on neck Review of Systems PHQ Score Initial Depression Screen Score: 0 SCORE ROS - Provider Constitutional: no fever, no chills, no sweats, no fatigue Respiratory: no shortness of breath, yes cough, no orthopnea, no wheezing. Cardiovascular: no chest pain, no palpitations, no edema. Neurologic: no headache, no dizziness, no numbness, no weakness. rash on neck Physical Exam Vitals & Measurements HR: 88(Peripheral) RR: 18 BP: 110/68 SpO2: 96% HT: 67 in HT: 169.6 cm WT: 63.0 kg WT: 138.6 lb BMI: 21.9 General: alert, no acute distress ENMT: oral mucosa moist, no pharyngeal erythema or exudate Cardiovascular: regular rate and rhythm, normal peripheral perfusion Respiratory: Lungs rales throughout, respirations non labored Extremities: no deformity, no trauma Neurological: oriented x 4, LOC appropriate for age, CN II-XII intact, motor strength equal & normal bilaterally, speech normal Assessment/Plan 1. Lung cancer (C34.90: Malignant neoplasm of unspecified part of unspecified bronchus or lung) pt being treated for lung cancer. cough is worsening and coughing up yellow phlegm. back and lungs hurt from coughing so hard. will treat with zpak and steroid. all questions answered. RTC as needed Ordered: fluticasone nasal, 2 spray(s), Nasal, Daily, 16 gram, Refill(s) 0, each nostril, [facility], 169.6, cm, 03/17/23 10:54:00 EDT, Height/Length Dosing, 62, kg, 03/17/23 10:54:00 EDT, Weight Dosing 2. Chest congestion (R09.89: Other specified symptoms and signs involving the circulatory and respiratory systems) pt having chest congestion body aches and coughing up yellow phlegm. 3. Anxiety (F41.9: Anxiety disorder, unspecified) meds refilled Ordered: fluticasone nasal, 2 spray(s), Nasal, Daily, 16 gram, Refill(s) 0, each nostril, [facility], 169.6, cm, 03/17/23 10:54:00 EDT, Height/Length Dosing, 62, kg, 03/17/23 10:54:00 EDT, Weight Dosing 4. BMI 21.0-21.9, adult (Z68.21: Body mass index [BMI] 21.0-21.9, adult) BMI education complete Ordered: fluticasone nasal, 2 spray(s), Nasal, Daily, 16 gram, Refill(s) 0, each nostril, [facility], 169.6, cm, 03/17/23 10:54:00 EDT, Height/Length Dosing, 62, kg, 03/17/23 10:54:00 EDT, Weight Dosing 5. Former smoker (Z87.891: Personal history of nicotine dependence) continue not smoking Ordered: fluticasone nasal, 2 spray(s), Nasal, Daily, 16 gram, Refill(s) 0, each nostril, [facility], 169.6, cm, 03/17/23 10:54:00 EDT, Height/Length Dosing, 62, kg, 03/17/23 10:54:00 EDT, Weight Dosing Orders: alprazolam, 0.25 mg = 1 tab(s), Oral, TID, PRN for anxiety, # 60 tab(s), Refills(s) 0, Pharmacy: [facility], 169.6, cm, 07/23/23 10:23:00 EST, Height/Length Dosing, 63, kg, 07/23/23 10:23:00 EST, Weight Dosing alprazolam, 0.25 mg = 1 tab(s), Oral, TID, PRN for anxiety, # 30 tab(s), Refills(s) 1, Pharmacy: [facility], 169.6, cm, 04/16/23 10:21:00 EDT, Height/Length Dosing, 63.8, kg, 04/16/23 10:30:00 EDT, Weight Dosing azithromycin, = 1 packet(s), Oral, As Directed, as directed on package labeling, X 5 day(s), # 6 tab(s), Refills(s) 0, Pharmacy: [facility], 169.6, cm, 07/23/23 10:23:00 EST, Height/Length Dosing, 63, kg, 07/23/23 10:23:00 EST, Weight Dosing methylPREDNISolone, = 1 packet(s), Oral, Once, as directed on package labeling, # 21 tab(s), Refills(s) 0, Pharmacy: [facility], 169.6, cm, 07/23/23 10:23:00 EST, Height/Length Dosing, 63, kg, 07/23/23 10:23:00 EST, Weight Dosing Follow-up No qualifying data available Problem List/Past Medical History Ongoing Anxiety CAD (coronary artery disease) Chest congestion Emphysema lung Fluid level behind tympanic membrane of both ears Insomnia Lung cancer Rash Historical No qualifying data Procedure/Surgical History CABG (Coronary artery bypass grafting) planned, Lobectomy of lung. Medications alprazolam 0.25 mg Tab, 0.25 mg= 1 tab(s), Oral, TID, PRN alprazolam 0.25 mg Tab, 0.25 mg= 1 tab(s), Oral, TID, PRN atorvastatin 40 mg Tab, 40 mg= 1 tab(s), Oral, Daily azithromycin 250 mg Tab, 1 packet(s), Oral, As Directed cilostazol 100 mg Tab clopidogrel 75 mg Tab, 75 mg= 1 tab(s) (more content not included)... Normal [facility] Comment on above: Result Comment: Elec tronically Signed By: Enrique Austin\.br\Date and Time Signed: 07/23/23 10:41 EST CNPNon 07-18-2023 CNPN Normal [facility] Medication Consenton 023 Medication Consent [id number] 8#1.00TIFF Normal [facility] Ambulatory Visit Summaryon 1 09-09-2022 Ambulatory Visit Summary PEDRO GU :1955 Visit Date:07/09/2023 Ambulatory Visit Instructions Your Diagnosis Anxiety Lung cancer BMI 21.0-21.9, adult Former smoker Your Care Team Attending Physician - Enrique Austin Primary Care Physician - Enrique Austin This Is Your Medications List alprazolam (alprazolam 0.25 mg Tab) alprazolam (alprazolam 0.25 mg Tab) atorvastatin (atorvastatin 40 mg Tab) cilostazol (cilostazol 100 mg Tab) clopidogrel (clopidogrel 75 mg Tab) fluticasone nasal (Flonase 0.05 mg/inh [facility]) isosorbide mononitrate (isosorbide mononitrate 30 mg ER Tab) metoprolol (metoprolol 25 mg ER Tab) olanzapine (olanzapine 5 mg oral tablet, disintegrating) Procedures Performed CABG (Coronary artery bypass grafting) planned, Lobectomy of lung. Discharge Vitals Temperature (Temporal Artery) 36.6 ?C Heart Rate (Peripheral) 70 Respiratory Rate 16 Blood Pressure 136/80 Height 169.6 cm Height 67 in Weight 63.1 kg Weight 138.82 lb BMI 21.94 What to do next Scheduled Follow-Up Appointments Friday 9:00 AM EDT With: Enrique Austin Where: [facility] [place] Normal [address] [place] [phone] \.br\ Medications\.br\ What How Much When Why Instructions\.br\ Unchanged alprazolam (alprazolam 0.25 mg Tab) 1 Tablets By Mouth 3 times a day as needed for for anxiety\.br\ Unchanged alprazolam (alprazolam 0.25 mg Tab) 1 Tablets By Mouth 3 times a day as needed for for anxiety\.br\ Unchanged atorvastatin (atorvastatin 40 mg Tab) 1 Tablets By Mouth Every day\.br\ Unchanged cilostazol (cilostazol 100 mg Tab) 60 EA, TAKE 1 TABLET BY MOUTH IN THE MORNING AND AT BEDTIME \.br\ Unchanged clopidogrel (clopidogrel 75 mg Tab) 1 Tablets By Mouth Every day\.br\ Unchanged fluticasone nasal (Flonase 0.05 mg/ inh [facility]) 2 Sprays Nasal Inhalation Every day Rash Lung cancer Anxiety Insomnia Fluid level behind tympanic membrane of both ears BMI 21.0-21.9, adult Former smoker each nostril \.br\ Unchanged isosorbide mononitrate (isosorbide mononitrate 30 mg ER Tab)\.br\ Unchanged metoprolol (metoprolol 25 mg ER Tab) 1 Tablets By Mouth 2 times a day\.br\ Unchanged olanzapine (olanzapine 5 mg oral tablet, disintegrating) 1 Tablets By Mouth Every day\.br\ Allergies\.br\ No Known Allergies\.br\ Problems\.br\ Ongoing - Any problem that you are currently receiving treatment for.\.br\ Anxiety\.br\ CAD (coronary artery disease)\.br\ Emphysema lung\.br\ Fluid level behind tympanic membrane of both ears\.br\ Insomnia\.br\ Lung cancer\.br\ Rash\.br\ Patient Survey\.br\ You may receive a survey via text or e-mail asking about your office visit. Please share your experience with us by completing your survey. We appreciate your feedback and thank you for choosing us for your care.\.br\ \.br\ [facility] Family Medicine Office/Clini c Noteon 07-09-2023 Family Medicine Office/Clinic Note HPI Staff Pedro is a 68 year old male presenting for 3 month follow up Follow up for Mental Status: Medication adherence- Yes, takes medication as prescribed Suicidal thoughts-Not at this time Medication Agreement: UTD signed 03/17/23 recent ERIS: 6 pt is currently being treated for lung cancer, had covid booster on Jun 27 got sores in his mouth was so dry and sore, did get something rxed for it at [facility] ( amoxicillin) History of Present Illness pt presents today for 3 month med check. Review of Systems PHQ Score Initial Depression Screen Score: 1 SCORE ROS - Provider Constitutional: no fever, no chills, no sweats, no fatigue Respiratory: no shortness of breath, no cough, no orthopnea, no wheezing. Cardiovascular: no chest pain, no palpitations, no edema. Neurologic: no headache, no dizziness, no numbness, no weakness. Physical Exam Vitals & Measurements T: 36.6 ?C(Temporal Artery) HR: 70(Peripheral) RR: 16 BP: 136/80 SpO2: 100% HT: 67 in HT: 169.6 cm WT: 63.1 kg WT: 138.82 lb BMI: 21.94 General: alert, no acute distress ENMT: oral mucosa moist, no pharyngeal erythema or exudate Cardiovascular: regular rate and rhythm, normal peripheral perfusion Respiratory: Lungs CTA, respirations non labored Extremities: no deformity, no trauma Neurological: oriented x 4, LOC appropriate for age, CN II-XII intact, motor strength equal & normal bilaterally, speech normal Assessment/Plan 1. Anxiety (F41.9: Anxiety disorder, unspecified) pt presents today for follow up on anxiety. medication agreement updated for xanax prescription. pt does not need refills at this time. pt is doing well. denies needs. he does state that he had covid booster on 06/27 and he still feels terrible. pt encouraged to stay well hydrated and rest. all questions answered. RTC 3 months 2. Lung cancer (C34.90: Malignant neoplasm of unspecified part of unspecified bronchus or lung) pt continue treatment with oncology 3. BMI 21.0-21.9, adult (Z68.21: Body mass index [BMI] 21.0-21.9, adult) BMI education compelte Ordered: Body Mass Index (BMI) documented 3008F Current tobacco non-user 1036F Depression Screening Negative 3352F Influenza immunization status assessed 1030F Most recent diastolic blood pressure 80-89 mm Hg 3079F Patient screen for fall risk: no falls in last year or 1 fall with no injury in last year 1101F Systolic BP 130-139 mm Hg (Most Recent) 3075F 4. Former smoker (Z87.891: Personal history of nicotine dependence) continue not smoking Ordered: Body Mass Index (BMI) documented 3008F Current tobacco non-user 1036F Depression Screening Negative 3352F Influenza immunization status assessed 1030F Most recent diastolic blood pressure 80-89 mm Hg 3079F Patient screen for fall risk: no falls in last year or 1 fall with no injury in last year 1101F Systolic BP 130-139 mm Hg (Most Recent) 3075F Follow-up No qualifying data available Problem List/Past Medical History Ongoing Anxiety CAD (coronary artery disease) Emphysema lung Fluid level behind tympanic membrane of both ears Insomnia Lung cancer Rash Historical No qualifying data Procedure/Surgical History CABG (Coronary artery bypass grafting) planned, Lobectomy of lung. Medications alprazolam 0.25 mg Tab, 0.25 mg= 1 tab(s), Oral, TID, PRN, 1 refills alprazolam 0.25 mg Tab, 0.25 mg= 1 tab(s), Oral, TID, PRN atorvastatin 40 mg Tab, 40 mg= 1 tab(s), Oral, Daily cilostazol 100 mg Tab clopidogrel 75 mg Tab, 75 mg= 1 tab(s), Oral, Daily Flonase 0.05 mg/inh [place], 2 spray(s), Nasal, Daily, Not taking isosorbide mononitrate 30 mg ER Tab metoprolol 25 mg ER Tab, 25 mg= 1 tab(s), Oral, BID olanzapine 5 mg oral tablet, disintegrating, 5 mg= 1 tab(s), Oral, Daily Allergies No Known Allergies Social History Alcohol Beer, 3-5 times per week, Household alcohol concerns: No., 04/16/2023 Tobacco Former smoker, quit more than 30 days ago Tobacco Use:. Cigarettes, Household tobacco concerns: No., 07/09/2023 Family History Primary malignant neoplasm of lung: Father. Immunizations Vaccine Date Status SARS-CoV-2 (COVID-19) mRNA-1273 vaccine 07/17/2021 Recorded SARS-CoV-2 (COVID-19) mRNA-1273 vaccine 06/19/2021 Recorded SARS-CoV-2 (COVID-19) mRNA-1273 vaccine 12/13/2020 Recorded SARS-CoV-2 (COVID-19) mRNA-1273 vaccine 11/15/2020 Recorded Normal [facility] Comment on above: Result Comment: Elec tronically Signed By: Enrique Austin\chikis\Date and Time Signed: 07/09/23 10:27 EST CBC W Auto Differential pane l (Bld)on 06-30-2023 Basophils (Bld) [#/Vol] 0.03 10*3/uL Normal <0.11 [facility] Comment on above: Order Comment: Speci men Type: BLOOD SPECIMENOrdering Facility: [facility] Address: [address] [place] [address] Performed By: #### 5 7021-8 ####[facility] LABCLIA [id number] [place] [address] Basophils/100 WBC (Bld) 0.5 % Normal [facility] Comment on above: Order Comment: Speci men Type: BLOOD SPECIMENOrdering Facility: [facility] Address: [address] [place] [address] Performed By: #### 5 7021-8 ####[facility] LABCLIA [id number] [place] [address] Differential cell count method Nom (Bld) Auto Normal [facility] Comment on above: Order Comment: Speci men Type: BLOOD SPECIMENOrdering Facility: [facility] Address: [address] [place] [address] Performed By: #### 5 7021-8 ####[facility] LABCLIA [id number] [place] [address] Eosinophils (Bld) [#/Vol] 0.27 10*3/uL Normal <0.46 [facility] Comment on above: Order Comment: Speci men Type: BLOOD SPECIMENOrdering Facility: [facility] Address: [address] [place] [address] Performed By: #### 5 7021-8 ####[facility] LABCLIA [id number] [place] [address] Eosinophils/100 WBC (Bld) 4.5 % Normal [facility] Comment on above: Order Comment: Speci men Type: BLOOD SPECIMENOrdering Facility: [facility] Address: [address] [place] [address] Performed By: #### 5 7021-8 ####[facility] LABCLIA [id number] [place] [address] Erythrocyte distribution width (RBC) [Ratio] 12.7 % Normal 11.5-15.0 [facility] Comment on above: Order Comment: Speci men Type: BLOOD SPECIMENOrdering Facility: [facility] Address: [address] [place] [address] Performed By: #### 5 7021-8 ####[facility] LABCLIA [id number] [place] [address] Hematocrit (Bld) [Volume fraction] 34.6 % Low 39.0-51.0 [facility] Comment on above: Order Comment: Speci men Type: BLOOD SPECIMENOrdering Facility: [facility] Address: [address] [place] [address] Performed By: #### 5 7021-8 ####[facility] LABCLIA [id number] [place] [address] Hemoglobin (Bld) [Mass/Vol] 11.7 g/dL Low 13.0-17.0 [facility] Comment on above: Order Comment: Speci men Type: BLOOD SPECIMENOrdering Facility: [facility] Address: [address] [place] [address] Performed By: #### 5 7021-8 ####[facility] LABCLIA [id number] [place] [address] Immature granulocytes (Bld) [#/Vol] 0.03 10*3/uL Normal <0.10 [facility] Comment on above: Order Comment: Speci men Type: BLOOD SPECIMENOrdering Facility: [facility] Address: [address] [place] [address] Performed By: #### 5 7021-8 ####[facility] LABCLIA [id number] [place] [address] Immature granulocytes/100 WBC (Bld) 0.5 % Normal [facility] Comment on above: Order Comment: Speci men Type: BLOOD SPECIMENOrdering Facility: [facility] Address: [address] [place] [address] Performed By: #### 5 7021-8 ####[facility] LABCLIA [id number] [place] [address] Lymphocytes (Bld) [#/Vol] 1.32 10*3/uL Normal 1.00-4.00 [facility] Comment on above: Order Comment: Speci men Type: BLOOD SPECIMENOrdering Facility: [facility] Address: [address] [place] [address] Performed By: #### 5 7021-8 ####[facility] LABCLIA [id number] [place] [address] Lymphocytes/100 WBC (Bld) 22.0 % Normal [facility] Comment on above: Order Comment: Speci men Type: BLOOD SPECIMENOrdering Facility: [facility] Address: [address] [place] [address] Performed By: #### 5 7021-8 ####[facility] LABCLIA [id number] [place] [address] MCH (RBC) [Entitic mass] 31.0 pg Normal 26.0-34.0 [facility] Comment on above: Order Comment: Speci men Type: BLOOD SPECIMENOrdering Facility: [facility] Address: [address] [place] [address] Performed By: #### 5 7021-8 ####[facility] LABCLIA [id number] [place] [address] MCHC (RBC) [Mass/Vol] 33.8 g/dL Normal 30.5-36.0 [facility] Comment on above: Order Comment: Speci men Type: BLOOD SPECIMENOrdering Facility: [facility] Address: [address] [place] [address] Performed By: #### 5 7021-8 ####[facility] LABCLIA [id number] [place] [address] MCV (RBC) [Entitic vol] 91.5 fL Normal 80.0-100.0 [facility] Comment on above: Order Comment: Speci men Type: BLOOD SPECIMENOrdering Facility: [facility] Address: [address] [place] [address] Performed By: #### 5 7021-8 ####[facility] LABCLIA [id number] [place] [address] Monocytes (Bld) [#/Vol] 1.12 10*3/uL High <0.87 [facility] Comment on above: Order Comment: Speci men Type: BLOOD SPECIMENOrdering Facility: [facility] Address: [address] [place] [address] Performed By: #### 5 7021-8 ####[facility] LABCLIA [id number] [place] [address] Monocytes/100 WBC (Bld) 18.7 % Normal [facility] Comment on above: Order Comment: Speci men Type: BLOOD SPECIMENOrdering Facility: [facility] Address: [address] [place] [address] Performed By: #### 5 7021-8 ####[facility] LABCLIA [id number] [place] [address] Neutrophils (Bld) [#/Vol] 3.23 10*3/uL Normal 1.45-7.50 [facility] Comment on above: Order Comment: Speci men Type: BLOOD SPECIMENOrdering Facility: [facility] Address: [address] [place] [address] Performed By: #### 5 7021-8 ####[facility] LABCLIA [id number] [place] [address] Neutrophils/100 WBC (Bld) 53.8 % Normal [facility] Comment on above: Order Comment: Speci men Type: BLOOD SPECIMENOrdering Facility: [facility] Address: [address] [place] [address] Performed By: #### 5 7021-8 ####[facility] LABCLIA [id number] [place] [address] Nucleated RBC (Bld) [#/Vol] 10*3/uL Normal <0.01 [facility] Comment on above: Order Comment: Speci men Type: BLOOD SPECIMENOrdering Facility: [facility] Address: [address] [place] [address] Performed By: #### 5 7021-8 ####[facility] LABCLIA [id number] [place] [address] Nucleated RBC/100 WBC (Bld) [Ratio] 0.0 /100 WBC Normal [facility] Comment on above: Order Comment: Speci men Type: BLOOD SPECIMENOrdering Facility: [facility] Address: [address] [place] [address] Performed By: #### 5 7021-8 ####[facility] LABCLIA [id number] [place] [address] Platelet mean volume (Bld) [Entitic vol] 10.5 fL Normal 9.0-12.7 [facility] Comment on above: Order Comment: Speci men Type: BLOOD SPECIMENOrdering Facility: [facility] Address: [address] [place] [address] Performed By: #### 5 7021-8 ####[facility] LABCLIA [id number] [place] [address] Platelets (Bld) [#/Vol] 223 10*3/uL Normal 150-400 [facility] Comment on above: Order Comment: Speci men Type: BLOOD SPECIMENOrdering Facility: [facility] Address: [address] [place] [address] Performed By: #### 5 7021-8 ####[facility] LABCLIA [id number] [place] [address] RBC (Bld) [#/Vol] 3.78 10*6/uL Low 4.20-6.00 [facility] Comment on above: Order Comment: Speci men Type: BLOOD SPECIMENOrdering Facility: [facility] Address: [address] [place] [address] Performed By: #### 5 7021-8 ####[facility] LABCLIA [id number] [place] [address] WBC (Bld) [#/Vol] 6.00 10*3/uL Normal 3.70-11.00 [facility] Comment on above: Order Comment: Speci men Type: BLOOD SPECIMENOrdering Facility: [facility] Address: [address] [place] [address] Performed By: #### 5 7021-8 ####[facility] LABCLIA [id number] [place] [address] CNOVon 06-30-2023 CNOV Normal [facility] CNOVSPon 06-30-2023 CNOVSP Normal [facility] Comprehensive metabolic 2000 panelon 06-30-2023 Albumin [Mass/Vol] 4.0 g/dL Normal 3.9-4.9 [facility] Comment on above: Order Comment: Speci men Type: BLOOD SPECIMENOrdering Facility: [facility] Address: [address] [place] [address] Performed By: #### 2 4323-8 ####[facility] LABCLIA [id number] [place] [address] ALP [Catalytic activity/Vol] 79 U/L Normal 38-113 [facility] Comment on above: Order Comment: Speci men Type: BLOOD SPECIMENOrdering Facility: [facility] Address: [address] [place] [address] Performed By: #### 2 4323-8 ####[facility] LABCLIA [id number] [place] [address] ALT [Catalytic activity/Vol] 30 U/L Normal 10-54 [facility] Comment on above: Order Comment: Speci men Type: BLOOD SPECIMENOrdering Facility: [facility] Address: [address] [place] [address] Performed By: #### 2 4323-8 ####[facility] LABCLIA [id number] [place] [address] Anion gap [Moles/Vol] 12 mmol/L Normal 9-18 [facility] Comment on above: Order Comment: Speci men Type: BLOOD SPECIMENOrdering Facility: [facility] Address: [address] [place] [address] Performed By: #### 2 4323-8 ####[facility] LABCLIA [id number] [place] [address] AST [Catalytic activity/Vol] 36 U/L Normal 14-40 [facility] Comment on above: Order Comment: Speci men Type: BLOOD SPECIMENOrdering Facility: [facility] Address: [address] [place] [address] Performed By: #### 2 4323-8 ####[facility] LABCLIA [id number] [place] [address] Bilirubin [Mass/Vol] 0.5 mg/dL Normal 0.2-1.[address] [facility] Comment on above: Order Comment: Speci men Type: BLOOD SPECIMENOrdering Facility: [facility] Address: [address] [place] [address] Performed By: #### 2 4323-8 ####[facility] LABCLIA [id number] [place] [address] Calcium [Mass/Vol] 9.6 mg/dL Normal 8.5-10.2 [facility] Comment on above: Order Comment: Speci men Type: BLOOD SPECIMENOrdering Facility: [facility] Address: [address] [place] [address] Performed By: #### 2 4323-8 ####[facility] LABCLIA [id number] [place] [address] Chloride [Moles/Vol] 101 mmol/L Normal 97-[address] [facility] Comment on above: Order Comment: Speci men Type: BLOOD SPECIMENOrdering Facility: [facility] Address: [address] [place] [address] Performed By: #### 2 4323-8 ####[facility] LABCLIA [id number] [place] [address] CO2 [Moles/Vol] 26 mmol/L Normal 22-30 [facility] Comment on above: Order Comment: Speci men Type: BLOOD SPECIMENOrdering Facility: [facility] Address: [address] [place] [address] Performed By: #### 2 4323-8 ####[facility] LABCLIA [id number] [place] [address] Creatinine [Mass/Vol] 1.34 mg/dL High 0.73-1.22 [facility] Comment on above: Order Comment: Speci men Type: BLOOD SPECIMENOrdering Facility: [facility] Address: [address] [place] [address] Performed By: #### 2 4323-8 ####[facility] LABCLIA [id number] [place] [address] Creatinine and Glomerular filtration rate.predicted panel (S/P/Bld) 58 mL/min/1.73m??? Low >=60 [facility] Comment on above: Order Comment: Speci men Type: BLOOD SPECIMENOrdering Facility: [facility] Address: [address] [place] [address] Result Comment: Landy mated Glomerular Filtration Rate (eGFR) is calculated using the 2020 CKD-EPI creatinine equation. This equation utilizes serum creatinine, sex, and age as parameters. The creatinine assay has traceable calibration to isotope dilution-mass spectrometry. Refer to KDIGO guidelines for clinical interpretation. In patients with unstable renal function, e.g. those with acute kidney injury, the eGFR may not accurately reflect actual GFR. Performed By: #### 2 4323-8 ####[facility] LABCLIA [id number] [place] [address] Glucose [Mass/Vol] 100 mg/dL High 74-99 [facility] Comment on above: Order Comment: Speci men Type: BLOOD SPECIMENOrdering Facility: [facility] Address: [address] [place], [place] [address] Result Comment: The [place] Diabetes [employer] (ADA) provides guidance for cutoff values for fasting glucose and random glucose. The ADA defines fasting as no caloric intake for at least 8 hours. Fasting plasma glucose results between 100 to 125 mg/dL indicate increased risk for diabetes (prediabetes).Fasting plasma glucose results greater than or equal to 126 mg/dL meet the criteria for diagnosis of diabetes. In the absence of unequivocal hyperglycemia, results should be confirmed by repeat testing. In a patient with classic symptoms of hyperglycemia or hyperglycemic crisis, random plasma glucose results greater than or equal to 200 mg/dL meet the criteria for diagnosis of diabetes.Reference: Standards of Medical Care in Diabetes 2016, [place] [employer]. Diabetes Care. 2016.39(Suppl 1). Performed By: #### 2 4323-8 ####[facility] LABCLIA [id number] [place] [address] Potassium [Moles/Vol] 4.0 mmol/L Normal 3.7-5.1 [facility] Comment on above: Order Comment: Speci men Type: BLOOD SPECIMENOrdering Facility: [facility] Address: [address] [place] [address] Performed By: #### 2 4323-8 ####[facility] LABCLIA [id number] [place] [address] Protein [Mass/Vol] 7.4 g/dL Normal 6.3-8.0 [facility] Comment on above: Order Comment: Speci men Type: BLOOD SPECIMENOrdering Facility: [facility] Address: [address] [place] [address] Performed By: #### 2 4323-8 ####[facility] LABCLIA [id number] [place] [address] Sodium [Moles/Vol] 139 mmol/L Normal 136-144 [facility] Comment on above: Order Comment: Speci men Type: BLOOD SPECIMENOrdering Facility: [facility] Address: [address] [place] [id number] Performed By: #### 2 4323-8 ####[facility] LABCLIA [id number] [place] [address] Urea nitrogen [Mass/Vol] 28 mg/dL High 04-13 [facility] Comment on above: Order Comment: Speci men Type: BLOOD SPECIMENOrdering Facility: [facility] Address: [place] [address] Performed By: #### 2 4323-8 ####[facility] LABCLIA [id number] [place] [address] TSH SerPl-aCncon 06-30-2023 TSH Qn 2.840 m[IU]/L Normal 0.270-4.200 [facility] Comment on above: Order Comment: Speci men Type: BLOOD SPECIMENOrdering Facility: [facility] Address: [address] [place] [id number] Performed By: #### 3 016-3 ####[facility] LABCLIA [id number] [place] [id number] [place] CNOVon 06-23-2023 CNOV Normal [facility] CNOVon 06-13-2023 CNOV Normal [facility] CNOVon 06-10-2023 CNOV Normal [facility] CBC W Auto Differential pane l (Bld)on 06-02-2023 Basophils (Bld) [#/Vol] <0.11 k/uL [facility] Basophils/100 WBC (Bld) 0.4 % [facility] Differential cell count method Nom (Bld) Auto [facility] Eosinophils (Bld) [#/Vol] 0.08 10*3/uL <0.46 k/uL [facility] Eosinophils/100 WBC (Bld) 1.5 % [facility] Erythrocyte distribution width (RBC) [Ratio] 13.9 % 11.5 - 15.0 % [facility] Hematocrit (Bld) [Volume fraction] 37.5 % Low 39.0 - 51.0 % [facility] Hemoglobin (Bld) [Mass/Vol] 12.9 g/dL Low 13.0 - 17.0 g/dL [facility] Immature granulocytes (Bld) [#/Vol] 0.03 10*3/uL <0.10 k/uL [facility] Immature granulocytes/100 WBC (Bld) 0.6 % [facility] Lymphocytes (Bld) [#/Vol] 0.76 10*3/uL Low 1.00 - 4.00 k/uL [facility] Lymphocytes/100 WBC (Bld) 14.1 % [facility] MCH (RBC) [Entitic mass] 31.7 pg 26.0 - 34.0 pg [facility] MCHC (RBC) [Mass/Vol] 34.4 g/dL 30.5 - 36.0 g/dL [facility] MCV (RBC) [Entitic vol] 92.1 fL 80.0 - 100.0 fL [facility] Monocytes (Bld) [#/Vol] 0.67 10*3/uL <0.87 k/uL [facility] Monocytes/100 WBC (Bld) 12.4 % [facility] Neutrophils (Bld) [#/Vol] 3.84 10*3/uL 1.45 - 7.50 k/uL [facility] Neutrophils/100 WBC (Bld) 71.0 % [facility] Nucleated RBC (Bld) [#/Vol] <0.01 k/uL [facility] Nucleated RBC/100 WBC (Bld) [Ratio] 0.0 /100 WBC [facility] Platelet mean volume (Bld) [Entitic vol] 10.6 fL 9.0 - 12.7 fL [facility] Platelets (Bld) [#/Vol] 205 10*3/uL 150 - 400 k/uL [facility] RBC (Bld) [#/Vol] 4.07 10*6/uL Low 4.20 - 6.00 m/uL [facility] WBC (Bld) [#/Vol] 5.40 10*3/uL 3.70 - 11.00 k/u L [facility] Basophils (Bld) [#/Vol] 10*3/uL Normal <0.11 [facility] Comment on above: Order Comment: Speci men Type: BLOOD SPECIMENOrdering Facility: [facility] Address: [address] [place] [address] Performed By: #### 5 7021-8 ####[facility] LABCLIA [id number] [place] [address] Basophils/100 WBC (Bld) 0.4 % Normal [facility] Comment on above: Order Comment: Speci men Type: BLOOD SPECIMENOrdering Facility: [facility] Address: [address] [place] [address] Performed By: #### 5 7021-8 ####[facility] LABCLIA [id number] [place] [address] Differential cell count method Nom (Bld) Auto Normal [facility] Comment on above: Order Comment: Speci men Type: BLOOD SPECIMENOrdering Facility: [facility] Address: [address] [place] [address] Performed By: #### 5 7021-8 ####[facility] LABCLIA [id number] [place] [address] Eosinophils (Bld) [#/Vol] 0.08 10*3/uL Normal <0.46 [facility] Comment on above: Order Comment: Speci men Type: BLOOD SPECIMENOrdering Facility: [facility] Address: [address] [place] [address] Performed By: #### 5 7021-8 ####[facility] LABCLIA [id number] [place] [address] Eosinophils/100 WBC (Bld) 1.5 % Normal [facility] Comment on above: Order Comment: Speci men Type: BLOOD SPECIMENOrdering Facility: [facility] Address: [address] [place] [address] Performed By: #### 5 7021-8 ####[facility] LABCLIA [id number] [place] [address] Erythrocyte distribution width (RBC) [Ratio] 13.9 % Normal 11.5-15.0 [facility] Comment on above: Order Comment: Speci men Type: BLOOD SPECIMENOrdering Facility: [facility] Address: [address] [place] [address] Performed By: #### 5 7021-8 ####[facility] LABCLIA [id number] [place] [address] Hematocrit (Bld) [Volume fraction] 37.5 % Low 39.0-51.0 [facility] Comment on above: Order Comment: Speci men Type: BLOOD SPECIMENOrdering Facility: [facility] Address: [address] [place] [address] Performed By: #### 5 7021-8 ####[facility] LABIA [id number] [place] [address] Hemoglobin (Bld) [Mass/Vol] 12.9 g/dL Low 13.0-17.0 [facility] Comment on above: Order Comment: Speci men Type: BLOOD SPECIMENOrdering Facility: [facility] Address: [address] [place] [address] Performed By: #### 5 7021-8 ####[facility] LABIA [id number] [place] [address] Immature granulocytes (Bld) [#/Vol] 0.03 10*3/uL Normal <0.10 [facility] Comment on above: Order Comment: Speci men Type: BLOOD SPECIMENOrdering Facility: [facility] Address: [address] [place] [address] Performed By: #### 5 7021-8 ####[facility] LABIA [id number] [place] [address] Immature granulocytes/100 WBC (Bld) 0.6 % Normal [facility] Comment on above: Order Comment: Speci men Type: BLOOD SPECIMENOrdering Facility: [facility] Address: [address] [place] [address] Performed By: #### 5 7021-8 ####[facility] LABCLIA [id number] [place] [address] Lymphocytes (Bld) [#/Vol] 0.76 10*3/uL Low 1.00-4.00 [facility] Comment on above: Order Comment: Speci men Type: BLOOD SPECIMENOrdering Facility: [facility] Address: [address] [place] [address] Performed By: #### 5 7021-8 ####[facility] LABCLIA [id number] [place] [address] Lymphocytes/100 WBC (Bld) 14.1 % Normal [facility] Comment on above: Order Comment: Speci men Type: BLOOD SPECIMENOrdering Facility: [facility] Address: [address] [place] [address] Performed By: #### 5 7021-8 ####[facility] LABCLIA [id number] [place] [address] MCH (RBC) [Entitic mass] 31.7 pg Normal 26.0-34.0 [facility] Comment on above: Order Comment: Speci men Type: BLOOD SPECIMENOrdering Facility: [facility] Address: [address] [place] [address] Performed By: #### 5 7021-8 ####[facility] LABCLIA [id number] [place] [address] MCHC (RBC) [Mass/Vol] 34.4 g/dL Normal 30.5-36.0 [facility] Comment on above: Order Comment: Speci men Type: BLOOD SPECIMENOrdering Facility: [facility] Address: [address] [place] [address] Performed By: #### 5 7021-8 ####[facility] LABCLIA [id number] [place] [address] MCV (RBC) [Entitic vol] 92.1 fL Normal 80.0-100.0 [facility] Comment on above: Order Comment: Speci men Type: BLOOD SPECIMENOrdering Facility: [facility] Address: [address] [place] [address] Performed By: #### 5 7021-8 ####[facility] LABCLIA [id number] [place] [address] Monocytes (Bld) [#/Vol] 0.67 10*3/uL Normal <0.87 [facility] Comment on above: Order Comment: Speci men Type: BLOOD SPECIMENOrdering Facility: [facility] Address: [address] [place] [address] Performed By: #### 5 7021-8 ####[facility] LABCLIA [id number] [place] [address] Monocytes/100 WBC (Bld) 12.4 % Normal [facility] Comment on above: Order Comment: Speci men Type: BLOOD SPECIMENOrdering Facility: [facility] Address: [address] [place] [address] Performed By: #### 5 7021-8 ####[facility] LABCLIA [id number] [place] [address] Neutrophils (Bld) [#/Vol] 3.84 10*3/uL Normal 1.45-7.50 [facility] Comment on above: Order Comment: Speci men Type: BLOOD SPECIMENOrdering Facility: [facility] Address: [address] [place] [address] Performed By: #### 5 7021-8 ####[facility] LABCLIA [id number] [place] [address] Neutrophils/100 WBC (Bld) 71.0 % Normal [facility] Comment on above: Order Comment: Speci men Type: BLOOD SPECIMENOrdering Facility: [facility] Address: [address] [place] [address] Performed By: #### 5 7021-8 ####[facility] LABCLIA [id number] [place] [address] Nucleated RBC (Bld) [#/Vol] 10*3/uL Normal <0.01 [facility] Comment on above: Order Comment: Speci men Type: BLOOD SPECIMENOrdering Facility: [facility] Address: [address] [place] [address] Performed By: #### 5 7021-8 ####[facility] LABCLIA [id number] [place] [address] Nucleated RBC/100 WBC (Bld) [Ratio] 0.0 /100 WBC Normal [facility] Comment on above: Order Comment: Speci men Type: BLOOD SPECIMENOrdering Facility: [facility] Address: [address] [place] [address] Performed By: #### 5 7021-8 ####[facility] LABCLIA [id number] [place] [address] Platelet mean volume (Bld) [Entitic vol] 10.6 fL Normal 9.0-12.7 [facility] Comment on above: Order Comment: Speci men Type: BLOOD SPECIMENOrdering Facility: [facility] Address: [address] [place] [address] Performed By: #### 5 7021-8 ####[facility] LABCLIA [id number] [place] [address] Platelets (Bld) [#/Vol] 205 10*3/uL Normal 150-400 [facility] Comment on above: Order Comment: Speci men Type: BLOOD SPECIMENOrdering Facility: [facility] Address: [address] [place] [address] Performed By: #### 5 7021-8 ####[facility] LABCLIA [id number] [place] [address] RBC (Bld) [#/Vol] 4.07 10*6/uL Low 4.20-6.00 [facility] Comment on above: Order Comment: Speci men Type: BLOOD SPECIMENOrdering Facility: [facility] Address: [address] [place] [address] Performed By: #### 5 7021-8 ####[facility] LABCLIA [id number] [place] [address] WBC (Bld) [#/Vol] 5.40 10*3/uL Normal 3.70-11.00 [facility] Comment on above: Order Comment: Speci men Type: BLOOD SPECIMENOrdering Facility: [facility] Address: [place] [address] Performed By: #### 5 7021-8 ####[facility] LABCLIA [id number] [place] [address] CNOVSPon 06-02-2023 CNOVSP Normal [facility] metabolic 2000 panelon 06-02-2023 Albumin [Mass/Vol] 4.3 g/dL 3.9 - 4.9 g/dL [facility] ALP [Catalytic activity/Vol] 58 U/L 38 - 113 U/L [facility] ALT [Catalytic activity/Vol] 14 U/L 10 - 54 U/L [facility] Anion gap [Moles/Vol] 10 mmol/L 9 - 18 mmol/L [facility] AST [Catalytic activity/Vol] 18 U/L 14 - 40 U/L [facility] Bilirubin [Mass/Vol] 0.5 mg/dL 0.2 - 1.3 mg/dL [facility] Calcium [Mass/Vol] 9.8 mg/dL 8.5 - 10.2 mg/dL [facility] Chloride [Moles/Vol] 102 mmol/L 97 - 105 mmol/L [facility] CO2 [Moles/Vol] 26 mmol/L 22 - 30 mmol/L [facility] Creatinine [Mass/Vol] 0.90 mg/dL 0.73 - 1.22 mg/dL [facility] Estimated Glomerular Filtration Rate 94 mL/min/1.73m >=60 mL/min/1.73m [facility] Glucose [Mass/Vol] 117 mg/dL High 74 - 99 mg/dL [facility] Potassium [Moles/Vol] 3.5 mmol/L Low 3.7 - 5.1 mmol/L [facility] Protein [Mass/Vol] 7.7 g/dL 6.3 - 8.0 g/dL [facility] Sodium [Moles/Vol] 138 mmol/L 136 - 144 mmol/L [facility] Urea nitrogen [Mass/Vol] 24 mg/dL 9 - 24 mg/dL [facility] Albumin [Mass/Vol] 4.3 g/dL Normal 3.9-4.9 [facility] Comment on above: Order Comment: Speci men Type: BLOOD SPECIMENOrdering Facility: [facility] Address: [address] [place] [address] Performed By: #### 2 4323-8 ####[facility] LABCLIA [id number] [place] [address] ALP [Catalytic activity/Vol] 58 U/L Normal 38-113 [facility] Comment on above: Order Comment: Speci men Type: BLOOD SPECIMENOrdering Facility: [facility] Address: [address] [place] [address] Performed By: #### 2 4323-8 ####[facility] LABCLIA [id number] [place] [address] ALT [Catalytic activity/Vol] 14 U/L Normal 10-54 [facility] Comment on above: Order Comment: Speci men Type: BLOOD SPECIMENOrdering Facility: [facility] Address: [address] [place] [address] Performed By: #### 2 4323-8 ####[facility] LABCLIA [id number] [place] [address] Anion gap [Moles/Vol] 10 mmol/L Normal 9-18 [facility] Comment on above: Order Comment: Speci men Type: BLOOD SPECIMENOrdering Facility: [facility] Address: [address] [place] [address] Performed By: #### 2 4323-8 ####[facility] LABCLIA [id number] [place] [address] AST [Catalytic activity/Vol] 18 U/L Normal 14-40 [facility] Comment on above: Order Comment: Speci men Type: BLOOD SPECIMENOrdering Facility: [facility] Address: [address] [place] [address] Performed By: #### 2 4323-8 ####[facility] LABCLIA [id number] [place] [address] Bilirubin [Mass/Vol] 0.5 mg/dL Normal 0.2-1.[address] [facility] Comment on above: Order Comment: Speci men Type: BLOOD SPECIMENOrdering Facility: [facility] Address: [address] [place] [address] Performed By: #### 2 4323-8 ####[facility] LABCLIA [id number] [place] [address] Calcium [Mass/Vol] 9.8 mg/dL Normal 8.5-10.2 [facility] Comment on above: Order Comment: Speci men Type: BLOOD SPECIMENOrdering Facility: [facility] Address: [address] [place] [address] Performed By: #### 2 4323-8 ####[facility] LABCLIA [id number] [place] [address] Chloride [Moles/Vol] 102 mmol/L Normal 97-[address] [facility] Comment on above: Order Comment: Speci men Type: BLOOD SPECIMENOrdering Facility: [facility] Address: [address] [place] [address] Performed By: #### 2 4323-8 ####[facility] LABCLIA [id number] [place] [address] CO2 [Moles/Vol] 26 mmol/L Normal 22-30 [facility] Comment on above: Order Comment: Speci men Type: BLOOD SPECIMENOrdering Facility: [facility] Address: [address] [place] [address] Performed By: #### 2 4323-8 ####[facility] LABCLIA [id number] [place] [address] Creatinine [Mass/Vol] 0.90 mg/dL Normal 0.73-1.22 [facility] Comment on above: Order Comment: Ajay rausch Type: BLOOD SPECIMENOrdering Facility: [facility] Address: [address] [place] [address] Performed By: #### 2 4323-8 ####[facility] LABCLIA [id number] [place] [address] Creatinine and Glomerular filtration rate.predicted panel (S/P/Bld) 94 mL/min/1.73m??? Normal >=60 [facility] Comment on above: Order Comment: Ajay rausch Type: BLOOD SPECIMENOrdering Facility: [facility] Address: [place] [address] Result Comment: Landy mated Glomerular Filtration Rate (eGFR) is calculated using the 2020 CKD-EPI creatinine equation. This equation utilizes serum creatinine, sex, and age as parameters. The creatinine assay has traceable calibration to isotope dilution-mass spectrometry. Refer to KDIGO guidelines for clinical interpretation. In patients with unstable renal function, e.g. those with acute kidney injury, the eGFR may not accurately reflect actual GFR. Performed By: #### 2 4323-8 ####[facility] LABCLIA [id number] [place] [address] Glucose [Mass/Vol] 117 mg/dL High 74-99 [facility] Comment on above: Order Comment: Ajay rausch Type: BLOOD SPECIMENOrdering Facility: [facility] Address: [address] [place] [address] Result Comment: The [place] [employer] (ADA) provides guidance for cutoff values for fasting glucose and random glucose. The ADA defines fasting as no caloric intake for at least 8 hours. Fasting plasma glucose results between 100 to 125 mg/dL indicate increased risk for diabetes (prediabetes).Fasting plasma glucose results greater than or equal to 126 mg/dL meet the criteria for diagnosis of diabetes. In the absence of unequivocal hyperglycemia, results should be confirmed by repeat testing. In a patient with classic symptoms of hyperglycemia or hyperglycemic crisis, random plasma glucose results greater than or equal to 200 mg/dL meet the criteria for diagnosis of diabetes.Reference: Standards of Medical Care in Diabetes 2016, [place] [employer]. Diabetes Care. 2016.39(Suppl 1). Performed By: #### 2 4323-8 ####[facility] LABCLIA [id number] [place] [address] Potassium [Moles/Vol] 3.5 mmol/L Low 3.7-5.1 [facility] Comment on above: Order Comment: Speci men Type: BLOOD SPECIMENOrdering Facility: [facility] Address: [address] [place] [address] Performed By: #### 2 4323-8 ####[facility] LABCLIA [id number] [place] [address] Protein [Mass/Vol] 7.7 g/dL Normal 6.3-8.0 [facility] Comment on above: Order Comment: Speci men Type: BLOOD SPECIMENOrdering Facility: [facility] Address: [address] [place] [address] Performed By: #### 2 4323-8 ####[facility] LABCLIA [id number] [place] [address] Sodium [Moles/Vol] 138 mmol/L Normal 136-144 [facility] Comment on above: Order Comment: Speci men Type: BLOOD SPECIMENOrdering Facility: [facility] Address: [address] [place] [address] Performed By: #### 2 4323-8 ####[facility] LABCLIA [id number] [place] [address] Urea nitrogen [Mass/Vol] 24 mg/dL Normal 9-24 [facility] Comment on above: Order Comment: Speci men Type: BLOOD SPECIMENOrdering Facility: [facility] Address: [address] [place] [address] Performed By: #### 2 4323-8 ####[facility] LABCLIA [id number] [place] [address] CNCNPATEDon 05-30-2023 CNCNPATED Normal [facility] CNOVon 05-30-2023 CNOV Normal [facility] CNOVon 05-27-2023 CNOV Normal [facility] CNCNPATEDon 05-20-2023 CNCNPATED Normal [facility] CNPNon 05-20-2023 CNPN Normal [facility] CNPNon 05-19-2023 CNPN Normal [facility] CNOVon 05-16-2023 CNOV Normal [facility] CNPNon 05-15-2023 CNPN Normal [facility] CNPNon 05-14-2023 CNPN Normal [facility] CBC W Auto Differential pane l (Bld)on 05-13-2023 Basophils (Bld) [#/Vol] 10*3/uL Normal <0.11 [facility] Comment on above: Order Comment: Speci men Type: BLOOD SPECIMENOrdering Facility: [facility] Address: [address] [place] [address] Performed By: #### 5 7021-8 ####[facility] LABCLIA [id number] [place] [address] Basophils/100 WBC (Bld) 0.3 % Normal [facility] Comment on above: Order Comment: Speci men Type: BLOOD SPECIMENOrdering Facility: [facility] Address: [address] [place] [address] Performed By: #### 5 7021-8 ####[facility] LABCLIA [id number] [place] [address] Differential cell count method Nom (Bld) Auto Normal [facility] Comment on above: Order Comment: Speci men Type: BLOOD SPECIMENOrdering Facility: [facility] Address: [address] [place] [address] Performed By: #### 5 7021-8 ####[facility] LABCLIA [id number] [place] [address] Eosinophils (Bld) [#/Vol] 0.14 10*3/uL Normal <0.46 [facility] Comment on above: Order Comment: Speci men Type: BLOOD SPECIMENOrdering Facility: [facility] Address: [address] [place] [address] Performed By: #### 5 7021-8 ####[facility] LABCLIA [id number] [place] [address] Eosinophils/100 WBC (Bld) 2.3 % Normal [facility] Comment on above: Order Comment: Speci men Type: BLOOD SPECIMENOrdering Facility: [facility] Address: [address] [place] [address] Performed By: #### 5 7021-8 ####[facility] LABCLIA [id number] [place] [address] Erythrocyte distribution width (RBC) [Ratio] 13.7 % Normal 11.5-15.0 [facility] Comment on above: Order Comment: Speci men Type: BLOOD SPECIMENOrdering Facility: [facility] Address: [address] [place] [address] Performed By: #### 5 7021-8 ####[facility] LABCLIA [id number] [place] [address] Hematocrit (Bld) [Volume fraction] 37.6 % Low 39.0-51.0 [facility] Comment on above: Order Comment: Speci men Type: BLOOD SPECIMENOrdering Facility: [facility] Address: [address] [place] [address] Performed By: #### 5 7021-8 ####[facility] LABCLIA [id number] [place] [address] Hemoglobin (Bld) [Mass/Vol] 13.0 g/dL Normal 13.0-17.0 [facility] Comment on above: Order Comment: Speci men Type: BLOOD SPECIMENOrdering Facility: [facility] Address: [address] [place] [address] Performed By: #### 5 7021-8 ####[facility] LABCLIA [id number] [place] [address] Immature granulocytes (Bld) [#/Vol] 0.03 10*3/uL Normal <0.10 [facility] Comment on above: Order Comment: Speci men Type: BLOOD SPECIMENOrdering Facility: [facility] Address: [address] [place] [address] Performed By: #### 5 7021-8 ####[facility] LABCLIA [id number] [place] [address] Immature granulocytes/100 WBC (Bld) 0.5 % Normal [facility] Comment on above: Order Comment: Speci men Type: BLOOD SPECIMENOrdering Facility: [facility] Address: [address] [place] [address] Performed By: #### 5 7021-8 ####[facility] LABCLIA [id number] [place] [address] Lymphocytes (Bld) [#/Vol] 1.01 10*3/uL Normal 1.00-4.00 [facility] Comment on above: Order Comment: Speci men Type: BLOOD SPECIMENOrdering Facility: [facility] Address: [address] [place] [address] Performed By: #### 5 7021-8 ####[facility] LABCLIA [id number] [place] [address] Lymphocytes/100 WBC (Bld) 16.4 % Normal [facility] Comment on above: Order Comment: Speci men Type: BLOOD SPECIMENOrdering Facility: [facility] Address: [address] [place] [address] Performed By: #### 5 7021-8 ####[facility] LABCLIA [id number] [place] [address] MCH (RBC) [Entitic mass] 31.9 pg Normal 26.0-34.0 [facility] Comment on above: Order Comment: Speci men Type: BLOOD SPECIMENOrdering Facility: [facility] Address: [address] [place] [address] Performed By: #### 5 7021-8 ####[facility] LABCLIA [id number] [place] [address] MCHC (RBC) [Mass/Vol] 34.6 g/dL Normal 30.5-36.0 [facility] Comment on above: Order Comment: Speci men Type: BLOOD SPECIMENOrdering Facility: [facility] Address: [address] [place] [address] Performed By: #### 5 7021-8 ####[facility] LABCLIA [id number] [place] [address] MCV (RBC) [Entitic vol] 92.2 fL Normal 80.0-100.0 [facility] Comment on above: Order Comment: Speci men Type: BLOOD SPECIMENOrdering Facility: [facility] Address: [address] [place] [address] Performed By: #### 5 7021-8 ####[facility] LABIA [id number] [place] [address] Monocytes (Bld) [#/Vol] 0.86 10*3/uL Normal <0.87 [facility] Comment on above: Order Comment: Speci men Type: BLOOD SPECIMENOrdering Facility: [facility] Address: [address] [place] [address] Performed By: #### 5 7021-8 ####[facility] LABCLIA [id number] [place] [address] Monocytes/100 WBC (Bld) 14.0 % Normal [facility] Comment on above: Order Comment: Speci men Type: BLOOD SPECIMENOrdering Facility: [facility] Address: [address] [place] [address] Performed By: #### 5 7021-8 ####[facility] LABIA [id number] [place] [address] Neutrophils (Bld) [#/Vol] 4.09 10*3/uL Normal 1.45-7.50 [facility] Comment on above: Order Comment: Speci men Type: BLOOD SPECIMENOrdering Facility: [facility] Address: [address] [place] [address] Performed By: #### 5 7021-8 ####[facility] LABCLIA [id number] [place] [address] Neutrophils/100 WBC (Bld) 66.5 % Normal [facility] Comment on above: Order Comment: Speci men Type: BLOOD SPECIMENOrdering Facility: [facility] Address: [address] [place] [address] Performed By: #### 5 7021-8 ####[facility] LABCLIA [id number] [place] [address] Nucleated RBC (Bld) [#/Vol] 10*3/uL Normal <0.01 [facility] Comment on above: Order Comment: Speci men Type: BLOOD SPECIMENOrdering Facility: [facility] Address: [address] [place] [address] Performed By: #### 5 7021-8 ####[facility] LABCLIA [id number] [place] [address] Nucleated RBC/100 WBC (Bld) [Ratio] 0.0 /100 WBC Normal [facility] Comment on above: Order Comment: Speci men Type: BLOOD SPECIMENOrdering Facility: [facility] Address: [address] [place] [address] Performed By: #### 5 7021-8 ####[facility] LABCLIA [id number] [place] [address] Platelet mean volume (Bld) [Entitic vol] 11.4 fL Normal 9.0-12.7 [facility] Comment on above: Order Comment: Speci men Type: BLOOD SPECIMENOrdering Facility: [facility] Address: [address] [place] [address] Performed By: #### 5 7021-8 ####[facility] LABCLIA [id number] [place] [address] Platelets (Bld) [#/Vol] 188 10*3/uL Normal 150-400 [facility] Comment on above: Order Comment: Speci men Type: BLOOD SPECIMENOrdering Facility: [facility] Address: [address] [place] [address] Performed By: #### 5 7021-8 ####[facility] LABCLIA [id number] [place] [address] RBC (Bld) [#/Vol] 4.08 10*6/uL Low 4.20-6.00 [facility] Comment on above: Order Comment: Speci men Type: BLOOD SPECIMENOrdering Facility: [facility] Address: [address] [place] [address] Performed By: #### 5 7021-8 ####[facility] LABIA [id number] [place] [address] WBC (Bld) [#/Vol] 6.15 10*3/uL Normal 3.70-11.00 [facility] Comment on above: Order Comment: Speci men Type: BLOOD SPECIMENOrdering Facility: [facility] Address: [address] [place] [address] Performed By: #### 5 7021-8 ####[facility] LABCLIA [id number] [place] [address] CNOVSPon 05-13-2023 CNOVSP Normal [facility] CNPNon 05-13-2023 CNPN Normal [facility] Comprehensive metabolic 2000 panelon 05-13-2023 Albumin [Mass/Vol] 4.5 g/dL Normal 3.9-4.9 [facility] Comment on above: Order Comment: Speci men Type: BLOOD SPECIMENOrdering Facility: [facility] Address: [address] [place] [address] Performed By: #### 2 4323-8 ####[facility] LABCLIA [id number] [place] [address] ALP [Catalytic activity/Vol] 68 U/L Normal 38-113 [facility] Comment on above: Order Comment: Speci men Type: BLOOD SPECIMENOrdering Facility: [facility] Address: [address] [place] [address] Performed By: #### 2 4323-8 ####[facility] LABCLIA [id number] [place] [address] ALT [Catalytic activity/Vol] 24 U/L Normal 10-54 [facility] Comment on above: Order Comment: Speci men Type: BLOOD SPECIMENOrdering Facility: [facility] Address: [address] [place] [address] Performed By: #### 2 4323-8 ####[facility] LABCLIA [id number] [place] [address] Anion gap [Moles/Vol] 7 mmol/L Low 9-18 [facility] Comment on above: Order Comment: Speci men Type: BLOOD SPECIMENOrdering Facility: [facility] Address: [address] [place] [address] Performed By: #### 2 4323-8 ####[facility] LABCLIA [id number] [place] [address] AST [Catalytic activity/Vol] 24 U/L Normal 14-40 [facility] Comment on above: Order Comment: Speci men Type: BLOOD SPECIMENOrdering Facility: [facility] Address: [address] [place] [address] Performed By: #### 2 4323-8 ####[facility] LABCLIA [id number] [place] [address] Bilirubin [Mass/Vol] 0.4 mg/dL Normal 0.2-1.[address] [facility] Comment on above: Order Comment: Speci men Type: BLOOD SPECIMENOrdering Facility: [facility] Address: [address] [place] [address] Performed By: #### 2 4323-8 ####[facility] LABCLIA [id number] [place] [address] Calcium [Mass/Vol] 9.8 mg/dL Normal 8.5-10.2 [facility] Comment on above: Order Comment: Speci men Type: BLOOD SPECIMENOrdering Facility: [facility] Address: [address] [place] [address] Performed By: #### 2 4323-8 ####[facility] LABCLIA [id number] [place] [address] Chloride [Moles/Vol] 102 mmol/L Normal 97-[address] [facility] Comment on above: Order Comment: Speci men Type: BLOOD SPECIMENOrdering Facility: [facility] Address: [address] [place] [address] Performed By: #### 2 4323-8 ####[facility] LABCLIA [id number] [place] [address] CO2 [Moles/Vol] 28 mmol/L Normal 22-30 [facility] Comment on above: Order Comment: Speci men Type: BLOOD SPECIMENOrdering Facility: [facility] Address: [address] [place] [address] Performed By: #### 2 4323-8 ####[facility] LABCLIA [id number] [place] [address] Creatinine [Mass/Vol] 1.06 mg/dL Normal 0.73-1.22 [facility] Comment on above: Order Comment: Speci men Type: BLOOD SPECIMENOrdering Facility: [facility] Address: [address] [place] [address] Performed By: #### 2 4323-8 ####[facility] LABCLIA [id number] [place] [address] Creatinine and Glomerular filtration rate.predicted panel (S/P/Bld) 77 mL/min/1.73m??? Normal >=60 [facility] Comment on above: Order Comment: Speci men Type: BLOOD SPECIMENOrdering Facility: [facility] Address: [address] [place] [address] Result Comment: Landy mated Glomerular Filtration Rate (eGFR) is calculated using the 2020 CKD-EPI creatinine equation. This equation utilizes serum creatinine, sex, and age as parameters. The creatinine assay has traceable calibration to isotope dilution-mass spectrometry. Refer to KDIGO guidelines for clinical interpretation. In patients with unstable renal function, e.g. those with acute kidney injury, the eGFR may not accurately reflect actual GFR. Performed By: #### 2 4323-8 ####[facility] LABCLIA [id number] [place] [address] Glucose [Mass/Vol] 150 mg/dL High 74-99 [facility] Comment on above: Order Comment: Speci men Type: BLOOD SPECIMENOrdering Facility: [facility] Address: [address] [place] [address] Result Comment: The [place] Diabetes Association (ADA) provides guidance for cutoff values for fasting glucose and random glucose. The ADA defines fasting as no caloric intake for at least 8 hours. Fasting plasma glucose results between 100 to 125 mg/dL indicate increased risk for diabetes (prediabetes).Fasting plasma glucose results greater than or equal to 126 mg/dL meet the criteria for diagnosis of diabetes. In the absence of unequivocal hyperglycemia, results should be confirmed by repeat testing. In a patient with classic symptoms of hyperglycemia or hyperglycemic crisis, random plasma glucose results greater than or equal to 200 mg/dL meet the criteria for diagnosis of diabetes.Reference: Standards of Medical Care in Diabetes 2016, [place] [employer]. Diabetes Care. 2016.39(Suppl 1). Performed By: #### 2 4323-8 ####[facility] LABCLIA [id number] [place] [address] Potassium [Moles/Vol] 3.4 mmol/L Low 3.7-5.1 [facility] Comment on above: Order Comment: Speci men Type: BLOOD SPECIMENOrdering Facility: [facility] Address: [address] [place] [address] Performed By: #### 2 4323-8 ####[facility] LABCLIA [id number] [place] [address] Protein [Mass/Vol] 7.5 g/dL Normal 6.3-8.0 [facility] Comment on above: Order Comment: Speci men Type: BLOOD SPECIMENOrdering Facility: [facility] Address: [address] [place] [address] Performed By: #### 2 4323-8 ####[facility] LABCLIA [id number] [place] [address] Sodium [Moles/Vol] 137 mmol/L Normal 136-144 [facility] Comment on above: Order Comment: Speci men Type: BLOOD SPECIMENOrdering Facility: [facility] Address: [address] [place] [address] Performed By: #### 2 4323-8 ####[facility] LABCLIA [id number] [place] [address] Urea nitrogen [Mass/Vol] 30 mg/dL High 9-24 [facility] Comment on above: Order Comment: Speci men Type: BLOOD SPECIMENOrdering Facility: [facility] Address: [address] [place] [address] Performed By: #### 2 4323-8 ####[facility] LABCLIA [id number] [place] [address] T4/FTI/T4Uon 05-13-2023 FTI 6.6 ug/dL Normal 5.3-10.8 [facility] Comment on above: Order Comment: Speci men Type: BLOOD SPECIMENOrdering Facility: [facility] Address: [address] [place] [address] Performed By: #### Lexi CHAN, 3015-3 ####[facility] LABCLIA [id number] [facility] [place] [id number] [address] [place] T4 [Mass/Vol] 6.3 ug/dL Normal 5.5-10.2 [facility] Comment on above: Order Comment: Speci men Type: BLOOD SPECIMENOrdering Facility: [facility] Address: [address] [place] [address] Performed By: #### Lexi CHAN, 3015-3 ####[facility] LABCLIA [id number] [place] [id number] [place] T4 uptake [Mass/Vol] 0.96 Normal 0.91-1.[address] [facility] Comment on above: Order Comment: Speci men Type: BLOOD SPECIMENOrdering Facility: [facility] Address: [address] [place] [address] Performed By: #### T 4FALEJANDRO, 3016-3 ####[facility] LABCLIA [id number] [place] [address] [place] TSH SerPl-aCncon 05-13-2023 TSH Qn 47.800 m[IU]/L High 0.270-4.200 [facility] Comment on above: Order Comment: Speci men Type: BLOOD SPECIMENOrdering Facility: [facility] Address: [address] [place] [address] Performed By: #### T 4FALEJANDRO, 3016-3 ####[facility] LABIA [id number] [place] [address] [place] NM PET/CT SKULL-THIGH SUBQon 05-12-2023 NM PET/CT SKULL-THIGH SUBQ Normal [facility] CNPNon 05-08-2023 CNPN Normal [facility] CNPNon 04-23-2023 CNPN Normal [facility] CBC W Auto Differential pane l (Bld)on 04-22-2023 Basophils (Bld) [#/Vol] 0.04 10*3/uL Normal <0.11 [facility] Comment on above: Order Comment: Speci men Type: BLOOD SPECIMENOrdering Facility: [facility] Address: [address] [place] [id number] Performed By: #### 5 7021-8 ####[facility] LABCLIA [id number] [place] [address] Basophils/100 WBC (Bld) 0.8 % Normal [facility] Comment on above: Order Comment: Speci men Type: BLOOD SPECIMENOrdering Facility: [facility] Address: [address] [place] [address] Performed By: #### 5 7021-8 ####[facility] LABCLIA [id number] [place] [address] Differential cell count method Nom (Bld) Auto Normal [facility] Comment on above: Order Comment: Speci men Type: BLOOD SPECIMENOrdering Facility: [facility] Address: [address] [place] [address] Performed By: #### 5 7021-8 ####[facility] LABCLIA [id number] [place] [address] Eosinophils (Bld) [#/Vol] 0.07 10*3/uL Normal <0.46 [facility] Comment on above: Order Comment: Speci men Type: BLOOD SPECIMENOrdering Facility: [facility] Address: [address] [place] [address] Performed By: #### 5 7021-8 ####[facility] LABCLIA [id number] [place] [address] Eosinophils/100 WBC (Bld) 1.4 % Normal [facility] Comment on above: Order Comment: Speci men Type: BLOOD SPECIMENOrdering Facility: [facility] Address: [address] [place] [address] Performed By: #### 5 7021-8 ####[facility] LABCLIA [id number] [place] [address] Erythrocyte distribution width (RBC) [Ratio] 14.5 % Normal 11.5-15.0 [facility] Comment on above: Order Comment: Speci men Type: BLOOD SPECIMENOrdering Facility: [facility] Address: [address] [place] [address] Performed By: #### 5 7021-8 ####[facility] LABCLIA [id number] [place] [address] Hematocrit (Bld) [Volume fraction] 39.9 % Normal 39.0-51.0 [facility] Comment on above: Order Comment: Speci men Type: BLOOD SPECIMENOrdering Facility: [facility] Address: [address] [place] [address] Performed By: #### 5 7021-8 ####[facility] LABCLIA [id number] [place] [address] Hemoglobin (Bld) [Mass/Vol] 13.7 g/dL Normal 13.0-17.0 [facility] Comment on above: Order Comment: Speci men Type: BLOOD SPECIMENOrdering Facility: [facility] Address: [address] [place] [address] Performed By: #### 5 7021-8 ####[facility] LABCLIA [id number] [place] [address] Immature granulocytes (Bld) [#/Vol] 0.05 10*3/uL Normal <0.10 [facility] Comment on above: Order Comment: Speci men Type: BLOOD SPECIMENOrdering Facility: [facility] Address: [address] [place] [address] Performed By: #### 5 7021-8 ####[facility] LABCLIA [id number] [place] [address] Immature granulocytes/100 WBC (Bld) 1.0 % Normal [facility] Comment on above: Order Comment: Speci men Type: BLOOD SPECIMENOrdering Facility: [facility] Address: [address] [place] [address] Performed By: #### 5 7021-8 ####[facility] LABCLIA [id number] [place] [address] Lymphocytes (Bld) [#/Vol] 0.82 10*3/uL Low 1.00-4.00 [facility] Comment on above: Order Comment: Speci men Type: BLOOD SPECIMENOrdering Facility: [facility] Address: [address] [place] [address] Performed By: #### 5 7021-8 ####[facility] LABCLIA [id number] [place] [address] Lymphocytes/100 WBC (Bld) 16.2 % Normal [facility] Comment on above: Order Comment: Speci men Type: BLOOD SPECIMENOrdering Facility: [facility] Address: [address] [place] [address] Performed By: #### 5 7021-8 ####[facility] LABCLIA [id number] [place] [address] MCH (RBC) [Entitic mass] 32.0 pg Normal 26.0-34.0 [facility] Comment on above: Order Comment: Speci men Type: BLOOD SPECIMENOrdering Facility: [facility] Address: [address] [place] [address] Performed By: #### 5 7021-8 ####[facility] LABIA [id number] [place] [address] MCHC (RBC) [Mass/Vol] 34.3 g/dL Normal 30.5-36.0 [facility] Comment on above: Order Comment: Speci men Type: BLOOD SPECIMENOrdering Facility: [facility] Address: [address] [place] [address] Performed By: #### 5 7021-8 ####[facility] LABCLIA [id number] [place] [address] MCV (RBC) [Entitic vol] 93.2 fL Normal 80.0-100.0 [facility] Comment on above: Order Comment: Speci men Type: BLOOD SPECIMENOrdering Facility: [facility] Address: [address] [place] [address] Performed By: #### 5 7021-8 ####[facility] LABCLIA [id number] [place] [address] Monocytes (Bld) [#/Vol] 0.45 10*3/uL Normal <0.87 [facility] Comment on above: Order Comment: Speci men Type: BLOOD SPECIMENOrdering Facility: [facility] Address: [address] [place] [address] Performed By: #### 5 7021-8 ####[facility] LABCLIA [id number] [place] [address] Monocytes/100 WBC (Bld) 8.9 % Normal [facility] Comment on above: Order Comment: Speci men Type: BLOOD SPECIMENOrdering Facility: [facility] Address: [address] [place] [address] Performed By: #### 5 7021-8 ####[facility] LABCLIA [id number] [place] [address] Neutrophils (Bld) [#/Vol] 3.63 10*3/uL Normal 1.45-7.50 [facility] Comment on above: Order Comment: Speci men Type: BLOOD SPECIMENOrdering Facility: [facility] Address: [address] [place] [address] Performed By: #### 5 7021-8 ####[facility] LABCLIA [id number] [place] [address] Neutrophils/100 WBC (Bld) 71.7 % Normal [facility] Comment on above: Order Comment: Speci men Type: BLOOD SPECIMENOrdering Facility: [facility] Address: [address] [place] [address] Performed By: #### 5 7021-8 ####[facility] LABCLIA [id number] [place] [address] Nucleated RBC (Bld) [#/Vol] 10*3/uL Normal <0.01 [facility] Comment on above: Order Comment: Speci men Type: BLOOD SPECIMENOrdering Facility: [facility] Address: [address] [place] [address] Performed By: #### 5 7021-8 ####[facility] LABCLIA [id number] [place] [address] Nucleated RBC/100 WBC (Bld) [Ratio] 0.0 /100 WBC Normal [facility] Comment on above: Order Comment: Speci men Type: BLOOD SPECIMENOrdering Facility: [facility] Address: [address] [place] [address] Performed By: #### 5 7021-8 ####[facility] LABIA [id number] [place] [address] Platelet mean volume (Bld) [Entitic vol] 10.2 fL Normal 9.0-12.7 [facility] Comment on above: Order Comment: Speci men Type: BLOOD SPECIMENOrdering Facility: [facility] Address: [address] [place] [address] Performed By: #### 5 7021-8 ####[facility] LABIA [id number] [place] [address] Platelets (Bld) [#/Vol] 206 10*3/uL Normal 150-400 [facility] Comment on above: Order Comment: Speci men Type: BLOOD SPECIMENOrdering Facility: [facility] Address: [address] [place] [address] Performed By: #### 5 7021-8 ####[facility] LABIA [id number] [place] [address] RBC (Bld) [#/Vol] 4.28 10*6/uL Normal 4.20-6.00 [facility] Comment on above: Order Comment: Speci men Type: BLOOD SPECIMENOrdering Facility: [facility] Address: [address] [place] [address] Performed By: #### 5 7021-8 ####[facility] LABIA [id number] [place] [address] WBC (Bld) [#/Vol] 5.06 10*3/uL Normal 3.70-11.00 [facility] Comment on above: Order Comment: Speci men Type: BLOOD SPECIMENOrdering Facility: [facility] Address: [address] [place] [address] Performed By: #### 5 7021-8 ####[facility] LABCLIA [id number] [place] [address] CNOVSPon 04-22-2023 CNOVSP Normal [facility] metabolic 2000 panelon 04-22-2023 Albumin [Mass/Vol] 4.5 g/dL Normal 3.9-4.9 [facility] Comment on above: Order Comment: Speci men Type: BLOOD SPECIMENOrdering Facility: [facility] Address: [address] [place] [address] Performed By: #### 2 4323-8 ####[facility] LABCLIA [id number] [place] [address] ALP [Catalytic activity/Vol] 72 U/L Normal 38-113 [facility] Comment on above: Order Comment: Speci men Type: BLOOD SPECIMENOrdering Facility: [facility] Address: [address] [place] [address] Performed By: #### 2 4323-8 ####[facility] LABCLIA [id number] [place] [address] ALT [Catalytic activity/Vol] 39 U/L Normal 10-54 [facility] Comment on above: Order Comment: Speci men Type: BLOOD SPECIMENOrdering Facility: [facility] Address: [address] [place] [address] Performed By: #### 2 4323-8 ####[facility] LABCLIA [id number] [place] [address] Anion gap [Moles/Vol] 8 mmol/L Low 9-18 [facility] Comment on above: Order Comment: Speci men Type: BLOOD SPECIMENOrdering Facility: [facility] Address: [address] [place] [address] Performed By: #### 2 4323-8 ####[facility] LABCLIA [id number] [place] [address] AST [Catalytic activity/Vol] 27 U/L Normal 14-40 [facility] Comment on above: Order Comment: Speci men Type: BLOOD SPECIMENOrdering Facility: [facility] Address: [address] [place] [address] Performed By: #### 2 4323-8 ####[facility] LABCLIA [id number] [place] [address] Bilirubin [Mass/Vol] 0.8 mg/dL Normal 0.2-1.[address] [facility] Comment on above: Order Comment: Speci men Type: BLOOD SPECIMENOrdering Facility: [facility] Address: [address] [place] [address] Performed By: #### 2 4323-8 ####[facility] LABCLIA [id number] [place] [address] Calcium [Mass/Vol] 9.7 mg/dL Normal 8.5-10.2 [facility] Comment on above: Order Comment: Speci men Type: BLOOD SPECIMENOrdering Facility: [facility] Address: [address] [place] [address] Performed By: #### 2 4323-8 ####[facility] LABCLIA [id number] [place] [address] Chloride [Moles/Vol] 103 mmol/L Normal 97-[address] [facility] Comment on above: Order Comment: Speci men Type: BLOOD SPECIMENOrdering Facility: [facility] Address: [address] [place] [address] Performed By: #### 2 4323-8 ####[facility] LABCLIA [id number] [place] [address] CO2 [Moles/Vol] 28 mmol/L Normal 22-30 [facility] Comment on above: Order Comment: Speci men Type: BLOOD SPECIMENOrdering Facility: [facility] Address: [address] [place] [address] Performed By: #### 2 4323-8 ####[facility] LABCLIA [id number] [place] [address] Creatinine [Mass/Vol] 1.11 mg/dL Normal 0.73-1.22 [facility] Comment on above: Order Comment: Ajay rausch Type: BLOOD SPECIMENOrdering Facility: [facility] Address: [address] [place] [address] Performed By: #### 2 4323-8 ####[facility] LABCLIA [id number] [place] [address] Creatinine and Glomerular filtration rate.predicted panel (S/P/Bld) 73 mL/min/1.73m??? Normal >=60 [facility] Comment on above: Order Comment: Ajay rausch Type: BLOOD SPECIMENOrdering Facility: [facility] Address: [address] [place] [address] Result Comment: Landy mated Glomerular Filtration Rate (eGFR) is calculated using the 2020 CKD-EPI creatinine equation. This equation utilizes serum creatinine, sex, and age as parameters. The creatinine assay has traceable calibration to isotope dilution-mass spectrometry. Refer to KDIGO guidelines for clinical interpretation. In patients with unstable renal function, e.g. those with acute kidney injury, the eGFR may not accurately reflect actual GFR. Performed By: #### 2 4323-8 ####[facility] LABIA [id number] [place] [address] Glucose [Mass/Vol] 137 mg/dL High 74-99 [facility] Comment on above: Order Comment: Ajay rausch Type: BLOOD SPECIMENOrdering Facility: [facility] Address: [address] [place] [address] Result Comment: The [place] Diabetes Association (ADA) provides guidance for cutoff values for fasting glucose and random glucose. The ADA defines fasting as no caloric intake for at least 8 hours. Fasting plasma glucose results between 100 to 125 mg/dL indicate increased risk for diabetes (prediabetes).Fasting plasma glucose results greater than or equal to 126 mg/dL meet the criteria for diagnosis of diabetes. In the absence of unequivocal hyperglycemia, results should be confirmed by repeat testing. In a patient with classic symptoms of hyperglycemia or hyperglycemic crisis, random plasma glucose results greater than or equal to 200 mg/dL meet the criteria for diagnosis of diabetes.Reference: Standards of Medical Care in Diabetes 2016, [place] [employer]. Diabetes Care. 2016.39(Suppl 1). Performed By: #### 2 4323-8 ####[facility] LABCLIA [id number] [place] [address] Potassium [Moles/Vol] 3.9 mmol/L Normal 3.7-5.1 [facility] Comment on above: Order Comment: Speci men Type: BLOOD SPECIMENOrdering Facility: [facility] Address: [address] [place] [address] Performed By: #### 2 4323-8 ####[facility] LABCLIA [id number] [place] [address] Protein [Mass/Vol] 7.1 g/dL Normal 6.3-8.0 [facility] Comment on above: Order Comment: Speci men Type: BLOOD SPECIMENOrdering Facility: [facility] Address: [address] [place] [address] Performed By: #### 2 4323-8 ####[facility] LABCLIA [id number] [place] [address] Sodium [Moles/Vol] 139 mmol/L Normal 136-144 [facility] Comment on above: Order Comment: Speci men Type: BLOOD SPECIMENOrdering Facility: [facility] Address: [address] [place] [address] Performed By: #### 2 4323-8 ####[facility] LABCLIA [id number] [place] [address] Urea nitrogen [Mass/Vol] 17 mg/dL Normal 9-24 [facility] Comment on above: Order Comment: Speci men Type: BLOOD SPECIMENOrdering Facility: [facility] Address: [address] [place] [address] Performed By: #### 2 4323-8 ####[facility] LABCLIA [id number] [place] [address] TSH SerPl-aCncon 04-22-2023 TSH Qn 62.600 m[IU]/L High 0.270-4.200 [facility] Comment on above: Order Comment: Speci men Type: BLOOD SPECIMENOrdering Facility: [facility] Address: [address] [place] [address] Performed By: #### 3 016-3 ####[facility] LABCLIA [id number] [address] [address] [facility] Family Medicine Office/Clini c Noteon 04-17-2023 Family Medicine Office/Clinic Note Chief Complaint Initial Medicare Wellness Visit Review of Systems PHQ Score Initial Depression Screen Score: 1 Physical Exam Vitals & Measurements HR: 86(Peripheral) BP: 110/80 SpO2: 95% HT: 169.6 cm HT: 67 in WT: 63.8 kg WT: 140.36 lb BMI: 22.18 Assessment/Plan 1. Annual visit for general adult medical examination without abnormal findings (Z00.00: Encounter for general adult medical examination without abnormal findings) The patient was given a customized and personalized print out of all the current AHRQ USPSTF?s recommendations for preventative services and all current CDC recommended immunizations, relevant risk recommendations and the following patient brochures were given. Reviewed Medicare preventative services checklist. CDC-Falls Prevention and home safety screening reviewed. Patient denies any falls in last 12 months, voices no worry about falling, exhibits no problems with sitting, standing, or ambulation. Pt voices understanding with keeping walk way area free of clutter to prevent tripping and/or falling. [place] Advance Directives Discussed, see below # 2. Patient denies any problems with ADL?s and Instrumental ADL?s. Cognitive screening completed with memory and clock face drawing, no deficits noted. Immunization Record reviewed with the patient. Discussed Shingrix vaccine with educational handout and availability. COVID vaccines have been administered, immunization record is up to date. Allergies and medications reviewed and up to date. Patient denies concerns with taking medication as prescribed, reviewed OTC medications with patient, medication list up to date. Blood tests were reviewed: per patient all labs up to date, have been requested from [facility]. Colonoscopy up to date, has been requested. Reviewed pain symptoms with patient: denies any pain symptoms. Reviewed all outside providers that patient follows. Last visit summary notes available in chart and/or have been requested. Follow up scheduled, 07/09/2023 AWV has been scheduled, 04/20/2024 Medicare provides yearly screening for alcohol and depression concerns. This is completed during our Medicare Wellness visit for those who do not have a current diagnosis of depression or concerns with alcohol use. I spent a total of 17 minutes on this date of service which included preparing to see the patient, face to face patient care, completing clinical documentation, obtaining and/or reviewing separately obtained history, counseling and educating the patient with handouts. Explanations were provided with reviewing questionnaires. AUDIT risk assessment screening completed, risk score 4, with patient denying concerns with use. Completed PHQ-2 risk assessment for depression with risk score 1, negative findings. Patient states his son and him have been sharing a vehicle the last couple weeks and this is causing him to feel down. States they are working at a solution. Patient has been reminded to notify the provider if there would be a change or concerns with symptoms with fear, unable to sleep, worrying too much or feeling down and/or sad with lost of interest with daily activities. Will continue to monitor with screening yearly during Medicare wellness visits. 2. Advanced care planning/counseling discussion (Z71.89: Other specified counseling) I spent a total of 18 minutes on this date of service 04/16/2023 face to face with patient during his Medicare wellness visit. is included the explanation of ADVANCED CARE PLANNING for end of life reviewed. Discussion included handout Planning for Important Health Care Decisions with explanations regarding different decisions with It's about how you live . Explained how this allows you to express your values and desires related to the type of care that can adjust as your situation changes and decisions must be made about the emergency treatments to keep you alive and/or comfortable. Reminded patient to ask himself what makes life meaningful to you? . The best way to making sure your wishes are known can be done with these two Advance Directives- a Living Will and a durable power of special education curriculum specialist for your health care. These two forms were discussed with other documents available as the DNR explanations, dialysis, hospice availability, organ and/or tissue donation. Next we discussed how to choose his representatives. Reminded patient to consider people that he knows that also share as well as understand your views and values and that would be able to follow through with your wishes. May even want to sit them down and discuss how you would like the decisions to be handled if needed and make sure they are aware of what you do not want. After you have completed your directives and selected your alternates, which can be either family or a friend. Next step is making it official. Patient voices understanding that his signature must be witnessed by either a Notary or two people not related to him or his representatives. Explained to the patient that his representat (more content not included)... Normal [facility] Comment on above: Result Comment: Elec tronically Signed By: Enrique Austin\.br\Date and Time Signed: 04/17/23 08:43 EDT\.br\Electronically Co-Signed By: John Malcolm\.br\Date and Time Co-Signed: 04/16/23 11:41 EDT Lab Reportson 04-17-2023 Lab Reports [id number] #1.00CD:127 [facility] Ambulatory Visit Summaryon 0 04-16-2023 Ambulatory Visit Summary PEDRO GU :1955 Visit Date:04/16/2023 Ambulatory Visit Instructions Your Diagnosis Annual visit for general adult medical examination without abnormal findings Advanced care planning/counseling discussion Anxiety Lung cancer Emphysema lung CAD (coronary artery disease) BMI 22.0-22.9, adult Your Care Team Attending Physician - Enrique Austin Primary Care Physician - Enrique Austin This Is Your Medications List alprazolam (alprazolam 0.25 mg Tab) alprazolam (alprazolam 0.25 mg Tab) atorvastatin (atorvastatin 40 mg Tab) cilostazol (cilostazol 100 mg Tab) clopidogrel (clopidogrel 75 mg Tab) fluticasone nasal (Flonase 0.05 mg/inh Centerpoint) isosorbide mononitrate (isosorbide mononitrate 30 mg ER Tab) metoprolol (metoprolol 25 mg ER Tab) olanzapine (olanzapine 5 mg oral tablet, disintegrating) Procedures Performed CABG (Coronary artery bypass grafting) planned, Lobectomy of lung. Discharge Vitals Heart Rate (Peripheral) 86 Blood Pressure 110/80 Height 169.6 cm Height 67 in Weight 63.8 kg Weight 140.36 lb BMI 22.18 What to do next Scheduled Follow-Up Appointments Friday 10:00 AM EST With: Enrique Austin Where: [place] [id number] [place] [phone]- \.br\ Medications\.br\ What How Much When Why Instructions\.br\ Unchanged alprazolam (alprazolam 0.25 mg Tab) 1 Tablets By Mouth 3 times a day as needed for for anxiety\.br\ Unchanged alprazolam (alprazolam 0.25 mg Tab) 1 Tablets By Mouth 3 times a day as needed for for anxiety\.br\ Unchanged atorvastatin (atorvastatin 40 mg Tab) 1 Tablets By Mouth Every day\.br\ Unchanged cilostazol (cilostazol 100 mg Tab) 60 EA, TAKE 1 TABLET BY MOUTH IN THE MORNING AND AT BEDTIME \.br\ Unchanged clopidogrel (clopidogrel 75 mg Tab) 1 Tablets By Mouth Every day\.br\ Unchanged fluticasone nasal (Flonase 0.05 mg/ inh Centerpoint) 2 Sprays Nasal Inhalation Every day Rash Lung cancer Anxiety Insomnia Fluid level behind tympanic membrane of both ears BMI 21.0-21.9, adult Former smoker each nostril \.br\ Unchanged isosorbide mononitrate (isosorbide mononitrate 30 mg ER Tab)\.br\ Unchanged metoprolol (metoprolol 25 mg ER Tab) 1 Tablets By Mouth 2 times a day\.br\ Unchanged olanzapine (olanzapine 5 mg oral tablet, disintegrating) 1 Tablets By Mouth Every day\.br\ Allergies\.br\ No Known Allergies\.br\ Problems\.br\ Ongoing - Any problem that you are currently receiving treatment for.\.br\ Anxiety\.br\ Fluid level behind tympanic membrane of both ears\.br\ Insomnia\.br\ Lung cancer\.br\ Rash\.br\ Education Materials\.br\ DASH Eating Plan\.br\ DASH stands for Dietary Approaches to Stop Hypertension. The DASH eating plan is a healthy eating plan that has been shown to:\.br\ ? \.br\ Reduce high blood pressure (hypertension).\.br \ ? \.br\ Reduce your risk for type 2 diabetes, heart disease, and stroke.\.br\ ? \.br\ Help with weight loss.\.br\ What are tips for following this plan?\.br\ Reading food labels\.br\ ? \.br\ Check food labels for the amount of salt (sodium) per serving. Choose foods with less than 5 percent of the Daily Value of sodium. Generally, foods with less than 300 milligrams (mg) of sodium per serving fit into this eating plan.\.br\ ? \.br\ To find whole grains, look for the word whole as the first word in the ingredient list.\.br\ Shopping\.br\ ? \.br\ Buy products labeled as low-sodium or no salt added. \.br\ ? \.br\ Buy fresh foods. Avoid canned foods and pre-made or frozen meals.\.br\ Cooking\.br\ ? \.br\ Avoid adding salt when cooking. Use salt-free seasonings or herbs instead of table salt or sea salt. Check with your health care provider or pharmacist before using salt substitutes.\.br\ ? \.br\ Do not abdi foods. Cook foods using healthy methods such as baking, boiling, grilling, roasting, and broiling instead.\.br\ ? \.br\ Cook with heart-healthy oils, such as olive, canola, avocado, soybean, or sunflower oil.\.br\ Meal planning\.br\ \.br\ ? \.br\ Eat a balanced diet that includes:\.br\ ? \.br\ 4 or more servings of fruits and 4 or more servings of vegetables each day. Try to fill one-half of your plate with fruits and vegetables.\.br\ ? \.br\ 6?8 servings of whole grains each day.\.br\ ? \.br\ Less than 6 oz (170 g) of lean meat, poultry, or fish each day. A 3-oz (85-g) serving of meat is about the same size as a deck of cards. One egg equals 1 oz (28 g).\.br\ ? \.br\ 2?3 servings of low-fat dairy each day. One serving is 1 cup (237 mL).\.br\ ? \.br\ 1 serving of nuts, seeds, or beans 5 times each week.\.br\ ? \.br\ 2?3 servings of heart-healthy fats. Healthy fats called omega-3 fatty acids are found in foods such as walnuts, flaxseeds, fortified milks, and eggs. These fats are also found in cold-water fish, such as sardines, salmon, and mackerel.\.br\ ? \.br\ Limit how much you eat of:\.br\ ? \.br\ Canned or prepackaged foods.\.br\ ? \.br\ Food that is high in trans fat, such as some fried foods.\.br\ ? \.br\ Food that is high in saturated fat, such as fatty meat.\.br\ ? \.br\ Desserts and other sweets, sugary drinks, and other foods with added sugar.\.br\ ? \.br\ Full-fat dairy products.\.br\ ? \.br\ Do not salt foods before eating.\.br\ ? \.br\ Do not eat more than 4 egg yolks a week.\.br\ ? \.br\ Try to eat at least 2 vegetarian meals a week.\.br\ ? \.br\ Eat more home-cooked food and less restaurant, buffet, and fast food.\.br\ Lifestyle\.br\ ? \.br\ When eating at a restaurant, ask that your food be prepared with less salt or no salt, if possible.\.br\ ? \.br\ If you drink alcohol:\.br\ ? \.br\ Limit how much you use to:\.br\ ? \.br\ 0?1 drink a day for women who are not .\.br\ ? \.br\ 0?2 drinks a day for men.\.br\ ? \.br\ Be aware of how much alcohol is in your drink. In the [place] one drink equals one 12 oz bottle of beer (355 mL), one 5 oz glass of wine (148 mL), or one 1? oz glass of hard liquor (44 mL).\.br\ General information\.br\ ? \.br\ Avoid eating more than 2,300 mg of salt a day. If you have hypertension, you may need to reduce your sodium intake to 1,500 mg a day.\.br\ ? \.br\ Work with your health care provider to maintain a healthy body weight or to lose weight. Ask what an ideal weight is for you.\.br\ ? \.br\ Get at least 30 minutes of exercise that causes your heart to beat faster (aerobic exercise) most days of the week. Activities may include walking, swimming, or biking.\.br\ ? \.br\ Work with your health care provider or dietitian to adjust your eating plan to your individual calorie needs.\.br\ What foods should I eat?\.br\ Fruits\.br\ All fresh, dried, or frozen fruit. Canned fruit in natural juice (without added sugar).\.br\ Vegetables\.br\ Fresh or frozen vegetables (raw, steamed, roasted, or grilled). Low-sodium or reduced-sodium tomato and vegetable juice. Low-sodium or reduced-sodium tomato sauce and tomato paste. Low-sodium or reduced-sodium canned vegetables.\.br\ Grains\.br\ Whole-grain or whole-wheat bread. Whole-grain or whole-wheat pasta. Brown rice. Oatmeal. Quinoa. Bulgur. Whole-grain and low-sodium cereals. Nasra bread. Low-fat, low-sodium crackers. Whole-wheat flour tortillas.\.br\ Meats and other proteins\.br\ Skinless chicken or turkey. Ground chicken or turkey. Pork with fat trimmed off. Fish and seafood. Egg whites. Dried beans, peas, or lentils. Unsalted nuts, nut butters, and seeds. Unsalted canned beans. Lean cuts of beef with fat trimmed off. Low-sodium, lean precooked or cured meat, such as sausages or meat loaves.\.br\ Dairy\.br\ Low-fat (1%) or fat-free (skim) milk. Reduced-fat, low-fat, or fat-free cheeses. Nonfat, low-sodium ricotta or cottage cheese. Low-fat or nonfat yogurt. Low-fat, low-sodium cheese.\.br\ Fats and oils\.br\ Soft margarine without trans fats. Vegetable oil. Reduced-fat, low-fat, or light mayonnaise and salad dressings (reduced-sodium). Canola, safflower, olive, avocado, soybean, and sunflower oils. Avocado.\.br\ Seasonings and condiments\.br\ Herbs. Spices. Seasoning mixes without salt.\.br\ Other foods\.br\ Unsalted popcorn and pretzels. Fat-free sweets.\.br\ The items listed above may not be a complete list of foods and beverages you can eat. Contact a dietitian for more information.\.br\ What foods should I avoid?\.br\ Fruits\.br\ Canned fruit in a light or heavy syrup. Fried fruit. Fruit in cream or butter sauce.\.br\ Vegetables\.br\ Creamed or fried vegetables. Vegetables in a cheese sauce. Regular canned vegetables (not low-sodium or reduced-sodium). Regular canned tomato sauce and paste (not low-sodium or reduced [facility] Auth for Release of Medical Recordson 04-16-2023 Auth for Release of Medical Records [id number]# 1.00CD:127 Normal [facility] Family Medicine Office/Clini c Noteon 04-16-2023 Family Medicine Office/Clinic Note HPI Staff Pedro is a 68 year old male presenting for 1 month follow up Follow up for Mental Status: Medication adherence- Yes, takes medication as prescribed MEdication refill needed: _ Suicidal thoughts-Not at this time Insomnia pt states is sleeping better at night. Bilateral ears: pt states still feels like they are full of fluid pt taking xanax due to struggling with his anxiety from Lung cancer. Medication agreement signed: 03.17.23, pt has appointment Apr [address] Grigsby for treatment History of Present Illness pt presents today for med check. needs refill on xanax. Review of Systems PHQ Score Initial Depression Screen Score: 0 ROS - Provider Constitutional: no fever, no chills, no sweats, no fatigue Respiratory: no shortness of breath, no cough, no orthopnea, no wheezing. Cardiovascular: no chest pain, no palpitations, no edema. Neurologic: no headache, no dizziness, no numbness, no weakness. Physical Exam Vitals & Measurements HR: 86(Peripheral) RR: 18 BP: 110/80 SpO2: 95% HT: 67 in HT: 169.6 cm WT: 63.77 kg WT: 140.294 lb BMI: 22.17 General: alert, no acute distress ENMT: oral mucosa moist, no pharyngeal erythema or exudate, left ear canal dry and flaky Cardiovascular: regular rate and rhythm, normal peripheral perfusion Respiratory: Lungs CTA, respirations non labored Extremities: no deformity, no trauma Neurological: oriented x 4, LOC appropriate for age, CN II-XII intact, motor strength equal & normal bilaterally, speech normal Assessment/Plan 1. Lung cancer (C34.90: Malignant neoplasm of unspecified part of unspecified bronchus or lung) Pt is currently being treated by Dr. Grigsby for lung cancer next treatment in 2 weeks. pt states he feels better today than he did the last time he was here. rash is pretty much healed up 2. Anxiety (F41.9: Anxiety disorder, unspecified) pt struggles with anxiety and dealing with diagnosis. will refill xanax 3. BMI 22.0-22.9, adult (Z68.22: Body mass index [BMI] 22.0-22.9, adult) BMI education complete 4. Non-smoker (Z78.9: Other specified health status) continue not smoking Orders: alprazolam, 0.25 mg = 1 tab(s), Oral, TID, PRN for anxiety, # 30 tab(s), Refills(s) 1, Pharmacy: [facility], 169.6, cm, 04/16/23 10:21:00 EDT, Height/Length Dosing, 63.8, kg, 04/16/23 10:30:00 EDT, Weight Dosing Follow-up No qualifying data available Problem List/Past Medical History Ongoing Anxiety Fluid level behind tympanic membrane of both ears Insomnia Lung cancer Rash Historical No qualifying data Procedure/Surgical History CABG (Coronary artery bypass grafting) planned, Lobectomy of lung. Medications alprazolam 0.25 mg Tab, 0.25 mg= 1 tab(s), Oral, TID, PRN, 1 refills alprazolam 0.25 mg Tab, 0.25 mg= 1 tab(s), Oral, TID, PRN atorvastatin 40 mg Tab, 40 mg= 1 tab(s), Oral, Daily cilostazol 100 mg Tab clopidogrel 75 mg Tab, 75 mg= 1 tab(s), Oral, Daily Flonase 0.05 mg/inh Centerpoint, 2 spray(s), Nasal, Daily isosorbide mononitrate 30 mg ER Tab metoprolol 25 mg ER Tab, 25 mg= 1 tab(s), Oral, BID olanzapine 5 mg oral tablet, disintegrating, 5 mg= 1 tab(s), Oral, Daily Allergies No Known Allergies Social History Tobacco Former smoker, quit more than 30 days ago Tobacco Use:. Cigarettes, Household tobacco concerns: No., 04/16/2023 Family History Primary malignant neoplasm of lung: Father. Immunizations Vaccine Date Status SARS-CoV-2 (COVID-19) mRNA-1273 vaccine 07/17/2021 Recorded SARS-CoV-2 (COVID-19) mRNA-1273 vaccine 06/19/2021 Recorded SARS-CoV-2 (COVID-19) mRNA-1273 vaccine 12/13/2020 Recorded SARS-CoV-2 (COVID-19) mRNA-1273 vaccine 11/15/2020 Recorded Normal [facility] Comment on above: Result Comment: Elec tronically Signed By: Enrique Austin\.br\Date and Time Signed: 04/16/23 10:50 EDT Patient Educationon 04-16-20 Patient Education Caregiving Fall Prevention in the Home, Adult Falls can cause injuries and affect people of all ages. There are many simple things that you can do to make your home safe and to help prevent falls. Ask for help when making these changes, if needed. What actions can I take to prevent falls? General instructions ? Use good lighting in all rooms. Replace any light bulbs that burn out, turn on lights if it is dark, and use night-lights. ? Place frequently used items in quyv-lp-tiuil places. Lower the shelves around your home if necessary. ? Set up furniture so that there are clear paths around it. Avoid moving your furniture around. ? Remove throw rugs and other tripping hazards from the floor. ? Avoid walking on wet floors. ? Fix any uneven floor surfaces. ? Add color or contrast paint or tape to grab bars and handrails in your home. Place contrasting color strips on the first and last steps of staircases. ? When you use a stepladder, make sure that it is completely opened and that the sides and supports are firmly locked. Have someone hold the ladder while you are using it. Do not climb a closed stepladder. ? Know where your pets are when moving through your home. What can I do in the bathroom? ? Keep the floor dry. Immediately clean up any water that is on the floor. ? Remove soap buildup in the tub or shower regularly. ? Use nonskid mats or decals on the floor of the tub or shower. ? Attach bath mats securely with double-sided, nonslip rug tape. ? If you need to sit down while you are in the shower, use a plastic, nonslip stool. ? Install grab bars by the toilet and in the tub and shower. Do not use towel bars as grab bars. What can I do in the bedroom? ? Make sure that a bedside light is easy to reach. ? Do not use oversized bedding that reaches the floor. ? Have a firm chair that has side arms to use for getting dressed. What can I do in the kitchen? ? Clean up any spills right away. ? If you need to reach for something above you, use a sturdy step stool that has a grab bar. ? Keep electrical cables out of the way. ? Do not use floor amharic or wax that makes floors slippery. If you must use wax, make sure that it is non-skid floor wax. What can I do with my stairs? ? Do not leave any items on the stairs. ? Make sure that you have a light switch at the top and the bottom of the stairs. Have them installed if you do not have them. ? Make sure that there are handrails on both sides of the stairs. Fix handrails that are broken or loose. Make sure that handrails are as long as the staircases. ? Install non-slip stair treads on all stairs in your home. ? Avoid having throw rugs at the top or bottom of stairs, or secure the rugs with carpet tape to prevent them from moving. ? Choose a carpet design that does not hide the edge of steps on the stairs. ? Check any carpeting to make sure that it is firmly attached to the stairs. Fix any carpet that is loose or worn. What can I do on the outside of my home? ? Use bright outdoor lighting. ? Regularly repair the edges of walkways and driveways and fix any cracks. ? Remove high doorway thresholds. ? Trim any shrubbery on the main path into your home. ? Regularly check that handrails are securely fastened and in good repair. Both sides of all steps should have handrails. ? Install guardrails along the edges of any raised decks or porches. ? Clear walkways of debris and clutter, including tools and rocks. ? Have leaves, snow, and ice cleared regularly. ? Use sand or salt on walkways during winter months. ? In the garage, clean up any spills right away, including grease or oil spills. What other actions can I take? ? Wear closed-toe shoes that fit well and support your feet. Wear shoes that have rubber soles or low heels. ? Use mobility aids as needed, such as canes, walkers, scooters, and crutches. ? Review your medicines with your health care provider. Some medicines can cause dizziness or changes in blood pressure, which increase your risk of falling. Talk with your health care provider about other ways that you can decrease your risk of falls. This may include working with a physical therapist or service trainer to improve your strength, balance, and endurance. Where to find more information ? Centers for Disease Control and Prevention, STEADI: www.cdc.gov ? [employer] on Aging: www.allyssa.nih.gov Contact a health care provider if: ? You are afraid of falling at home. ? You feel weak, drowsy, or dizzy at home. ? You fall at home. Summary ? There are many simple things that you can do to make your home safe and to help prevent falls. ? Ways to make your home safe include removing tripping hazards and installing grab bars in the bathroom. ? Ask for help when making these changes in your home. This information is not intended to replace advice given to you by your health ca (more content not included)... Normal [facility] Screenson 04-16-2023 Screens [id number] 1.00CD:127 Normal [facility] CNPNon 04-08-2023 CNPN Normal [facility] CBC panel Auto (Bld)on 04-01 Erythrocyte distribution width (RBC) [Ratio] 14.6 % Normal 11.5-15.0 [facility] Comment on above: Order Comment: Speci shalom Type: BLOOD SPECIMENOrdering Facility: [facility] Address: [address] [place] [address] Performed By: #### 5 8410-2 ####[facility] LABCLIA [id number] [place] [address] Hematocrit (Bld) [Volume fraction] 42.0 % Normal 39.0-51.0 [facility] Comment on above: Order Comment: Josei shalom Type: BLOOD SPECIMENOrdering Facility: [facility] Address: [address] [place] [address] Performed By: #### 5 8410-2 ####[facility] LABCLIA [id number] [place] [address] Hemoglobin (Bld) [Mass/Vol] 14.5 g/dL Normal 13.0-17.0 [facility] Comment on above: Order Comment: Speci men Type: BLOOD SPECIMENOrdering Facility: [facility] Address: [address] [place] [address] Performed By: #### 5 8410-2 ####[facility] LABCLIA [id number] [place] [address] MCH (RBC) [Entitic mass] 31.3 pg Normal 26.0-34.0 [facility] Comment on above: Order Comment: Speci men Type: BLOOD SPECIMENOrdering Facility: [facility] Address: [address] [place] [address] Performed By: #### 5 8410-2 ####[facility] LABCLIA [id number] [place] [address] MCHC (RBC) [Mass/Vol] 34.5 g/dL Normal 30.5-36.0 [facility] Comment on above: Order Comment: Speci men Type: BLOOD SPECIMENOrdering Facility: [facility] Address: [address] [place] [address] Performed By: #### 5 8410-2 ####[facility] LABIA [id number] [place] [address] MCV (RBC) [Entitic vol] 90.7 fL Normal 80.0-100.0 [facility] Comment on above: Order Comment: Speci men Type: BLOOD SPECIMENOrdering Facility: [facility] Address: [address] [place] [address] Performed By: #### 5 8410-2 ####[facility] LABCLIA [id number] [place] [address] Nucleated RBC (Bld) [#/Vol] 10*3/uL Normal <0.01 [facility] Comment on above: Order Comment: Speci men Type: BLOOD SPECIMENOrdering Facility: [facility] Address: [address] [place] [address] Performed By: #### 5 8410-2 ####[facility] LABIA [id number] [place] [address] Platelet mean volume (Bld) [Entitic vol] 10.0 fL Normal 9.0-12.7 [facility] Comment on above: Order Comment: Speci men Type: BLOOD SPECIMENOrdering Facility: [facility] Address: [address] [place] [address] Performed By: #### 5 8410-2 ####[facility] LABCLIA [id number] [place] [address] Platelets (Bld) [#/Vol] 171 10*3/uL Normal 150-400 [facility] Comment on above: Order Comment: Speci men Type: BLOOD SPECIMENOrdering Facility: [facility] Address: [address] [place] [address] Performed By: #### 5 8410-2 ####[facility] LABCLIA [id number] [place] [address] RBC (Bld) [#/Vol] 4.63 10*6/uL Normal 4.20-6.00 [facility] Comment on above: Order Comment: Speci men Type: BLOOD SPECIMENOrdering Facility: [facility] Address: [address] [place] [address] Performed By: #### 5 8410-2 ####[facility] LABIA [id number] [place] [address] WBC (Bld) [#/Vol] 6.65 10*3/uL Normal 3.70-11.00 [facility] Comment on above: Order Comment: Speci men Type: BLOOD SPECIMENOrdering Facility: [facility] Address: [address] [place] [address] Performed By: #### 5 8410-2 ####[facility] LABIA [id number] [place] [address] CNOVSPon 04-01-2023 CNOVSP Normal [facility] Comprehensive metabolic 2000 panelon 04-01-2023 Albumin [Mass/Vol] 4.5 g/dL Normal 3.9-4.9 [facility] Comment on above: Order Comment: Speci men Type: BLOOD SPECIMENOrdering Facility: [facility] Address: [address] [place] [address] Performed By: #### 2 4323-8 ####[facility] LABCLIA [id number] [place] [address] ALP [Catalytic activity/Vol] 80 U/L Normal 38-113 [facility] Comment on above: Order Comment: Speci men Type: BLOOD SPECIMENOrdering Facility: [facility] Address: [address] [place] [address] Performed By: #### 2 4323-8 ####[facility] LABCLIA [id number] [place] [address] ALT [Catalytic activity/Vol] 16 U/L Normal 10-54 [facility] Comment on above: Order Comment: Speci men Type: BLOOD SPECIMENOrdering Facility: [facility] Address: [address] [place] [address] Performed By: #### 2 4323-8 ####[facility] LABCLIA [id number] [place] [address] Anion gap [Moles/Vol] 11 mmol/L Normal 9-18 [facility] Comment on above: Order Comment: Speci men Type: BLOOD SPECIMENOrdering Facility: [facility] Address: [address] [place] [address] Performed By: #### 2 4323-8 ####[facility] LABCLIA [id number] [place] [address] AST [Catalytic activity/Vol] 20 U/L Normal 14-40 [facility] Comment on above: Order Comment: Speci men Type: BLOOD SPECIMENOrdering Facility: [facility] Address: [address] [place] [address] Performed By: #### 2 4323-8 ####[facility] LABCLIA [id number] [place] [address] Bilirubin [Mass/Vol] 0.7 mg/dL Normal 0.2-1.[address] [facility] Comment on above: Order Comment: Speci men Type: BLOOD SPECIMENOrdering Facility: [facility] Address: [address] [place] [address] Performed By: #### 2 4323-8 ####[facility] LABCLIA [id number] [place] [address] Calcium [Mass/Vol] 9.9 mg/dL Normal 8.5-10.2 [facility] Comment on above: Order Comment: Speci men Type: BLOOD SPECIMENOrdering Facility: [facility] Address: [address] [place] [address] Performed By: #### 2 4323-8 ####[facility] LABCLIA [id number] [place] [address] Chloride [Moles/Vol] 100 mmol/L Normal 97-[address] [facility] Comment on above: Order Comment: Speci men Type: BLOOD SPECIMENOrdering Facility: [facility] Address: [address] [place] [address] Performed By: #### 2 4323-8 ####[facility] LABCLIA [id number] [place] [address] CO2 [Moles/Vol] 29 mmol/L Normal 22-30 [facility] Comment on above: Order Comment: Speci men Type: BLOOD SPECIMENOrdering Facility: [facility] Address: [address] [place] [address] Performed By: #### 2 4323-8 ####[facility] LABCLIA [id number] [place] [address] Creatinine [Mass/Vol] 1.02 mg/dL Normal 0.73-1.22 [facility] Comment on above: Order Comment: Speci men Type: BLOOD SPECIMENOrdering Facility: [facility] Address: [address] [place] [address] Performed By: #### 2 4323-8 ####[facility] LABCLIA [id number] [place] [address] Creatinine and Glomerular filtration rate.predicted panel (S/P/Bld) 81 mL/min/1.73m??? Normal >=60 [facility] Comment on above: Order Comment: Ajay rausch Type: BLOOD SPECIMENOrdering Facility: [facility] Address: [address] [phone] Result Comment: Landy mated Glomerular Filtration Rate (eGFR) is calculated using the 2020 CKD-EPI creatinine equation. This equation utilizes serum creatinine, sex, and age as parameters. The creatinine assay has traceable calibration to isotope dilution-mass spectrometry. Refer to KDIGO guidelines for clinical interpretation. In patients with unstable renal function, e.g. those with acute kidney injury, the eGFR may not accurately reflect actual GFR. Performed By: #### 2 4323-8 ####[facility] LABCLIA [id number] [place] [address] Glucose [Mass/Vol] 103 mg/dL High 74-99 [facility] Comment on above: Order Comment: Ajay rausch Type: BLOOD SPECIMENOrdering Facility: [facility] Address: [address] [phone] Result Comment: The [place] Diabetes [employer] (ADA) provides guidance for cutoff values for fasting glucose and random glucose. The ADA defines fasting as no caloric intake for at least 8 hours. Fasting plasma glucose results between 100 to 125 mg/dL indicate increased risk for diabetes (prediabetes).Fasting plasma glucose results greater than or equal to 126 mg/dL meet the criteria for diagnosis of diabetes. In the absence of unequivocal hyperglycemia, results should be confirmed by repeat testing. In a patient with classic symptoms of hyperglycemia or hyperglycemic crisis, random plasma glucose results greater than or equal to 200 mg/dL meet the criteria for diagnosis of diabetes.Reference: Standards of Medical Care in Diabetes 2016, [place] [employer]. Diabetes Care. 2016.39(Suppl 1). Performed By: #### 2 4323-8 ####[facility] LABCLIA [id number] [place] [address] Potassium [Moles/Vol] 3.3 mmol/L Low 3.7-5.1 [facility] Comment on above: Order Comment: Ajay rausch Type: BLOOD SPECIMENOrdering Facility: [facility] Address: [address] [address] Performed By: #### 2 4323-8 ####[facility] LABCLIA [id number] [place] [address] Protein [Mass/Vol] 8.0 g/dL Normal 6.3-8.0 [facility] Comment on above: Order Comment: Speci men Type: BLOOD SPECIMENOrdering Facility: [facility] Address: [address] [place] [address] Performed By: #### 2 4323-8 ####[facility] LABCLIA [id number] [place] [address] Sodium [Moles/Vol] 140 mmol/L Normal 136-144 [facility] Comment on above: Order Comment: Speci men Type: BLOOD SPECIMENOrdering Facility: [facility] Address: [address] [place] [address] Performed By: #### 2 4323-8 ####[facility] LABCLIA [id number] [place] [address] Urea nitrogen [Mass/Vol] 23 mg/dL Normal 9-24 [facility] Comment on above: Order Comment: Speci men Type: BLOOD SPECIMENOrdering Facility: [facility] Address: [address] [place] [address] Performed By: #### 2 4323-8 ####[facility] LABCLIA [id number] [place] [address] XR CHEST 2V FRONTAL/LATon XR CHEST 2V FRONTAL/LAT Normal [facility] CNPNon 03-28-2023 CNPN Normal [facility] Ambulatory Visit Summaryon 0 03-17-2023 Ambulatory Visit Summary PEDRO GU :1955 Visit Date:03/17/2023 Ambulatory Visit Instructions Your Diagnosis Rash Lung cancer Anxiety Insomnia Fluid level behind tympanic membrane of both ears BMI 21.0-21.9, adult Former smoker Your Care Team Attending Physician - Enrique Austin Primary Care Physician - Enrique Austin This Is Your Medications List alprazolam (alprazolam 0.25 mg Tab) alprazolam (alprazolam 0.25 mg Tab) atorvastatin (atorvastatin 40 mg Tab) cilostazol (cilostazol 100 mg Tab) clopidogrel (clopidogrel 75 mg Tab) fluticasone nasal (Flonase 0.05 mg/inh [facility]) isosorbide mononitrate (isosorbide mononitrate 30 mg ER Tab) metoprolol (metoprolol 25 mg ER Tab) olanzapine (olanzapine 5 mg oral tablet, disintegrating) Procedures Performed CABG (Coronary artery bypass grafting) planned, Lobectomy of lung. Discharge Vitals Heart Rate (Peripheral) 64 Respiratory Rate 20 Blood Pressure 118/80 Height 169.6 cm Height 67 in Weight 62.0 kg Weight 136.4 lb BMI 21.55 What to do next Scheduled Follow-Up Appointments Friday 10:20 AM EDT [facility]: Enrique [facility] [address] [place], [place] [id number]- \.br\ Medications\.br\ What How Much When Why Instructions\.br\ New cilostazol (cilostazol 100 mg Tab) 60 EA, TAKE 1 TABLET BY MOUTH IN THE MORNING AND AT BEDTIME \.br\ New fluticasone nasal (Flonase 0.05 mg/ inh [facility]) 2 Sprays Nasal Inhalation Every day Rash Lung cancer Anxiety Insomnia Fluid level behind tympanic membrane of both ears BMI 21.0-21.9, adult Former smoker each nostril Pickup at [facility]\.br\ Unchanged alprazolam (alprazolam 0.25 mg Tab)\.br\ Unchanged alprazolam (alprazolam 0.25 mg Tab) 1 Tablets By Mouth 3 times a day as needed for for anxiety Pickup at [facility]\.br\ Unchanged atorvastatin (atorvastatin 40 mg Tab) 1 Tablets By Mouth Every day\.br\ Unchanged clopidogrel (clopidogrel 75 mg Tab) 1 Tablets By Mouth Every day\.br\ Unchanged isosorbide mononitrate (isosorbide mononitrate 30 mg ER Tab)\.br\ Unchanged metoprolol (metoprolol 25 mg ER Tab) 1 Tablets By Mouth 2 times a day\.br\ Unchanged olanzapine (olanzapine 5 mg oral tablet, disintegrating) 1 Tablets By Mouth Every day Pickup at [facility]\.br\ Pharmacy Information\.br\ [facility]: [address] [place] [id number] [phone]\.br\ Medications and Immunizations Administered\.br\ Given\.br\ triamcinolone acetonide 40 mg/mL Inj Susp, 40 mg, IntraMuscular. For: Anxiety\.br\ Allergies\.br\ No Known Allergies\.br\ Problems\.br\ Ongoing - Any problem that you are currently receiving treatment for.\.br\ Anxiety\.br\ Fluid level behind tympanic membrane of both ears\.br\ Insomnia\.br\ Lung cancer\.br\ Rash\.br\ \.br\ [facility] Consenton 03-17-2023 Consent [id number] #1.00CD:127 Normal [facility] Family Medicine Office/Clini c Noteon 03-17-2023 Family Medicine Office/Clinic Note HPI Staff Pedro is a 68 year old male presenting to [facility] care Establish Care: History: Any previous diagnosis: COPD, Lung Cancer, PVD, Emphysema, Asthma, Anxiety History of seeing any specialist: When was your last doctors visit: Dr Grigsby [facility] getting immunotherapy Last provider: Dr Azul Any recent labs: 12/07/21 Health Maintenance UTD: Colonoscopy: PSA: 12/07/21 0.60 Acute: Current issues/complaints: pt was seen 1-2 weeks ago [facility] for what thought was flea bites rash with big bites in middle was given prednisone and then pt called Dr grigsby because patient was told by ER it could be reaction from immunotherapy Dr melara advised patient it was from immunotherapy sounds more like an infection and was given taper dose of prednisone. pt completed prednisone and states rash is starting to come back has been using baby shampoo and OTC cream . 2 months c/o no being able to hear then ears will pop and he feels better. History of Present Illness pt presents today to establish care. is being treated for lung cancer. has a rash on arms and face. Review of Systems PHQ Score Initial Depression Screen Score: 0 ROS - Provider Constitutional: no fever, no chills, no sweats, no fatigue Respiratory: no shortness of breath, no cough, no orthopnea, no wheezing. Cardiovascular: no chest pain, no palpitations, no edema. Neurologic: no headache, no dizziness, no numbness, no weakness. rash, itchy and red, dry Physical Exam Vitals & Measurements HR: 64(Peripheral) RR: 20 BP: 118/80 SpO2: 94% HT: 67 in HT: 169.6 cm WT: 62.0 kg WT: 136.4 lb BMI: 21.55 General: alert, no acute distress ENMT: oral mucosa moist, no pharyngeal erythema or exudate Cardiovascular: regular rate and rhythm, normal peripheral perfusion Respiratory: Lungs CTA, respirations non labored Extremities: no deformity, no trauma Neurological: oriented x 4, LOC appropriate for age, CN II-XII intact, motor strength equal & normal bilaterally, speech normal red, dry itchy rash noted on exam. Assessment/Plan 1. Rash (R21: Rash and other nonspecific skin eruption) pt presents with rash on arms and face. pt states it was so bad before starting the medrol dose pack that he had open sores. he went to ER and also informed Dr. Grigsby. He sent in zpak and medrol dose pack. pt states it started clearing up, but is now getting new spots. discussed it could be a reaction from immunotherpy for lung cancer. he sees Dr. Grigsby in 2 weeks. will give kenalog injection in office today. RTC in 4 weeks for refill on xanax Ordered: fluticasone nasal, 2 spray(s), Nasal, Daily, 16 gram, Refill(s) 0, each nostril, [facility], 169.6, cm, 03/17/23 10:54:00 EDT, Height/Length Dosing, 62, kg, 03/17/23 10:54:00 EDT, Weight Dosing triamcinolone, 40 mg = 1 mL, Injection, IntraMuscular, Once, Stop date 03/17/23 11:36:00 EDT, Routine, Start date 03/17/23 11:36:00 EDT, 03/17/23 11:36:00 EDT 2. Lung cancer (C34.90: Malignant neoplasm of unspecified part of unspecified bronchus or lung) follwo Dr. Grigsby for treatment Ordered: fluticasone nasal, 2 spray(s), Nasal, Daily, 16 gram, Refill(s) 0, each nostril, [facility], 169.6, cm, 03/17/23 10:54:00 EDT, Height/Length Dosing, 62, kg, 03/17/23 10:54:00 EDT, Weight Dosing triamcinolone, 40 mg = 1 mL, Injection, IntraMuscular, Once, Stop date 03/17/23 11:36:00 EDT, Routine, Start date 03/17/23 11:36:00 EDT, 03/17/23 11:36:00 EDT 3. Anxiety (F41.9: Anxiety disorder, unspecified) pt presents today. is really struggling with anxiety from his cancer diagnosis was seeing Maryjo Fish from [facility] and she told him she would not prescribe any more xanax for him. medication agreement signed Ordered: fluticasone nasal, 2 spray(s), Nasal, Daily, 16 gram, Refill(s) 0, each nostril, [facility], 169.6, cm, 03/17/23 10:54:00 EDT, Height/Length Dosing, 62, kg, 03/17/23 10:54:00 EDT, Weight Dosing triamcinolone, 40 mg = 1 mL, Injection, IntraMuscular, Once, Stop date 03/17/23 11:36:00 EDT, Routine, Start date 03/17/23 11:36:00 EDT, 03/17/23 11:36:00 EDT 4. Insomnia (G47.00: Insomnia, unspecified) pt states he is not sleeping much at all. was previously prescribed xanax and olanzapine and it helped him sleep. She stopped prescribing it to him and he is really struggling. will order meds Ordered: fluticasone nasal, 2 spray(s), Nasal, Daily, 16 gram, Refill(s) 0, each nostril, [facility], 169.6, cm, 03/17/23 10:54:00 EDT, Height/Length Dosing, 62, kg, 03/17/23 10:54:00 EDT, Weight Dosing 5. Fluid level behind tympanic membrane of both ears (H65.93: Unspecified nonsuppurative otitis media, bilateral) JARED TM full of clear fluid. pt is c/o pressure and popping in his ears. will order flonase Ordered: fluticasone nasal, 2 spray(s), Nasal, Daily, 16 gram, Refill(s) 0, each nostril, [facility], 169.6, cm, 03/17/23 10:54:00 EDT, Height/L (more content not included)... Normal [facility] Comment on above: Result Comment: Elec tronically Signed By: Enrique Austin\.br\Date and Time Signed: 03/17/23 11:50 EDT Medication Consenton 023 Medication Consent [id number]# 1.00CD:127 Normal [facility] Patient Correspondenceon Patient Correspondence [id number]# 1.00CD:127 Normal [facility] CBC W Auto Differential pane l (Bld)on 03-11-2023 Basophils (Bld) [#/Vol] <0.11 k/uL [facility] Basophils/100 WBC (Bld) 0.2 % [facility] Differential cell count method Nom (Bld) Auto [facility] Eosinophils (Bld) [#/Vol] 0.05 10*3/uL <0.46 k/uL [facility] Eosinophils/100 WBC (Bld) 0.6 % [facility] Erythrocyte distribution width (RBC) [Ratio] 15.4 % High 11.5 - 15.0 % [facility] Hematocrit (Bld) [Volume fraction] 38.8 % Low 39.0 - 51.0 % [facility] Hemoglobin (Bld) [Mass/Vol] 13.1 g/dL 13.0 - 17.0 g/dL [facility] Immature granulocytes (Bld) [#/Vol] 0.06 10*3/uL <0.10 k/uL [facility] Immature granulocytes/100 WBC (Bld) 0.7 % [facility] Lymphocytes (Bld) [#/Vol] 0.72 10*3/uL Low 1.00 - 4.00 k/uL [facility] Lymphocytes/100 WBC (Bld) 8.7 % [facility] MCH (RBC) [Entitic mass] 31.0 pg 26.0 - 34.0 pg [facility] MCHC (RBC) [Mass/Vol] 33.8 g/dL 30.5 - 36.0 g/dL [facility] MCV (RBC) [Entitic vol] 91.7 fL 80.0 - 100.0 fL [facility] Monocytes (Bld) [#/Vol] 0.77 10*3/uL <0.87 k/uL [facility] Monocytes/100 WBC (Bld) 9.3 % [facility] Neutrophils (Bld) [#/Vol] 6.67 10*3/uL 1.45 - 7.50 k/uL [facility] Neutrophils/100 WBC (Bld) 80.5 % [facility] Nucleated RBC (Bld) [#/Vol] <0.01 k/uL [facility] Nucleated RBC/100 WBC (Bld) [Ratio] 0.0 /100 WBC [facility] Platelet mean volume (Bld) [Entitic vol] 10.3 fL 9.0 - 12.7 fL [facility] Platelets (Bld) [#/Vol] 226 10*3/uL 150 - 400 k/uL [facility] RBC (Bld) [#/Vol] 4.23 10*6/uL 4.20 - 6.00 m/uL [facility] WBC (Bld) [#/Vol] 8.29 10*3/uL 3.70 - 11.00 k/u L [facility] Basophils (Bld) [#/Vol] 10*3/uL Normal <0.11 [facility] Comment on above: Order Comment: Speci men Type: BLOOD SPECIMENOrdering Facility: [facility] Address: [address] [place] [phone] Performed By: #### 5 7021-8 ####[facility] LABCLIA [id number] [place] [address] Basophils/100 WBC (Bld) 0.2 % Normal [facility] Comment on above: Order Comment: Speci men Type: BLOOD SPECIMENOrdering Facility: [facility] Address: [address] [place] [address] Performed By: #### 5 7021-8 ####[facility] LABCLIA [id number] [place] [address] Differential cell count method Nom (Bld) Auto Normal [facility] Comment on above: Order Comment: Speci men Type: BLOOD SPECIMENOrdering Facility: [facility] Address: [address] [place] [address] Performed By: #### 5 7021-8 ####[facility] LABCLIA [id number] [place] [address] Eosinophils (Bld) [#/Vol] 0.05 10*3/uL Normal <0.46 [facility] Comment on above: Order Comment: Speci men Type: BLOOD SPECIMENOrdering Facility: [facility] Address: [address] [place] [address] Performed By: #### 5 7021-8 ####[facility] LABCLIA [id number] [place] [address] Eosinophils/100 WBC (Bld) 0.6 % Normal [facility] Comment on above: Order Comment: Speci men Type: BLOOD SPECIMENOrdering Facility: [facility] Address: [address] [place] [address] Performed By: #### 5 7021-8 ####[facility] LABCLIA [id number] [place] [address] Erythrocyte distribution width (RBC) [Ratio] 15.4 % High 11.5-15.0 [facility] Comment on above: Order Comment: Speci men Type: BLOOD SPECIMENOrdering Facility: [facility] Address: [address] [place] [address] Performed By: #### 5 7021-8 ####[facility] LABCLIA [id number] [place] [address] Hematocrit (Bld) [Volume fraction] 38.8 % Low 39.0-51.0 [facility] Comment on above: Order Comment: Speci men Type: BLOOD SPECIMENOrdering Facility: [facility] Address: [address] [place] [address] Performed By: #### 5 7021-8 ####[facility] LABCLIA [id number] [place] [address] Hemoglobin (Bld) [Mass/Vol] 13.1 g/dL Normal 13.0-17.0 [facility] Comment on above: Order Comment: Speci men Type: BLOOD SPECIMENOrdering Facility: [facility] Address: [address] [place] [address] Performed By: #### 5 7021-8 ####[facility] LABCLIA [id number] [place] [address] Immature granulocytes (Bld) [#/Vol] 0.06 10*3/uL Normal <0.10 [facility] Comment on above: Order Comment: Speci men Type: BLOOD SPECIMENOrdering Facility: [facility] Address: [address] [place] [address] Performed By: #### 5 7021-8 ####[facility] LABCLIA [id number] [place] [address] Immature granulocytes/100 WBC (Bld) 0.7 % Normal [facility] Comment on above: Order Comment: Speci men Type: BLOOD SPECIMENOrdering Facility: [facility] Address: [address] [place] [address] Performed By: #### 5 7021-8 ####[facility] LABCLIA [id number] [place] [address] Lymphocytes (Bld) [#/Vol] 0.72 10*3/uL Low 1.00-4.00 [facility] Comment on above: Order Comment: Speci men Type: BLOOD SPECIMENOrdering Facility: [facility] Address: [address] [place] [address] Performed By: #### 5 7021-8 ####[facility] LABCLIA [id number] [place] [address] Lymphocytes/100 WBC (Bld) 8.7 % Normal [facility] Comment on above: Order Comment: Speci men Type: BLOOD SPECIMENOrdering Facility: [facility] Address: [address] [place] [address] Performed By: #### 5 7021-8 ####[facility] LABCLIA [id number] [place] [address] MCH (RBC) [Entitic mass] 31.0 pg Normal 26.0-34.0 [facility] Comment on above: Order Comment: Speci men Type: BLOOD SPECIMENOrdering Facility: [facility] Address: [address] [place] [address] Performed By: #### 5 7021-8 ####[facility] LABIA [id number] [place] [address] MCHC (RBC) [Mass/Vol] 33.8 g/dL Normal 30.5-36.0 [facility] Comment on above: Order Comment: Speci men Type: BLOOD SPECIMENOrdering Facility: [facility] Address: [address] [place] [address] Performed By: #### 5 7021-8 ####[facility] LABIA [id number] [place] [address] MCV (RBC) [Entitic vol] 91.7 fL Normal 80.0-100.0 [facility] Comment on above: Order Comment: Speci men Type: BLOOD SPECIMENOrdering Facility: [facility] Address: [address] [place] [address] Performed By: #### 5 7021-8 ####[facility] LABCLIA [id number] [place] [address] Monocytes (Bld) [#/Vol] 0.77 10*3/uL Normal <0.87 [facility] Comment on above: Order Comment: Speci men Type: BLOOD SPECIMENOrdering Facility: [facility] Address: [address] [place] [address] Performed By: #### 5 7021-8 ####[facility] LABCLIA [id number] [place] [address] Monocytes/100 WBC (Bld) 9.3 % Normal [facility] Comment on above: Order Comment: Speci men Type: BLOOD SPECIMENOrdering Facility: [facility] Address: [address] [place] [address] Performed By: #### 5 7021-8 ####[facility] LABCLIA [id number] [place] [address] Neutrophils (Bld) [#/Vol] 6.67 10*3/uL Normal 1.45-7.50 [facility] Comment on above: Order Comment: Speci men Type: BLOOD SPECIMENOrdering Facility: [facility] Address: [address] [place] [address] Performed By: #### 5 7021-8 ####[facility] LABCLIA [id number] [place] [address] Neutrophils/100 WBC (Bld) 80.5 % Normal [facility] Comment on above: Order Comment: Speci men Type: BLOOD SPECIMENOrdering Facility: [facility] Address: [address] [place] [address] Performed By: #### 5 7021-8 ####[facility] LABCLIA [id number] [place] [address] Nucleated RBC (Bld) [#/Vol] 10*3/uL Normal <0.01 [facility] Comment on above: Order Comment: Speci men Type: BLOOD SPECIMENOrdering Facility: [facility] Address: [address] [address] Performed By: #### 5 7021-8 ####[facility] LABCLIA [id number] [place] [address] Nucleated RBC/100 WBC (Bld) [Ratio] 0.0 /100 WBC Normal [facility] Comment on above: Order Comment: Speci men Type: BLOOD SPECIMENOrdering Facility: [facility] Address: [address] [address] Performed By: #### 5 7021-8 ####[facility] LABCLIA [id number] [place] [address] Platelet mean volume (Bld) [Entitic vol] 10.3 fL Normal 9.0-12.7 [facility] Comment on above: Order Comment: Speci men Type: BLOOD SPECIMENOrdering Facility: [facility] Address: [address] [address] Performed By: #### 5 7021-8 ####[facility] LABCLIA [id number] [place] [address] Platelets (Bld) [#/Vol] 226 10*3/uL Normal 150-400 [facility] Comment on above: Order Comment: Speci men Type: BLOOD SPECIMENOrdering Facility: [facility] Address: [address] [address] Performed By: #### 5 7021-8 ####[facility] LABCLIA [id number] [place] [address] RBC (Bld) [#/Vol] 4.23 10*6/uL Normal 4.20-6.00 [facility] Comment on above: Order Comment: Speci men Type: BLOOD SPECIMENOrdering Facility: [facility] Address: [address] [place] [address] Performed By: #### 5 7021-8 ####[facility] LABCLIA [id number] [place] [address] WBC (Bld) [#/Vol] 8.29 10*3/uL Normal 3.70-11.00 [facility] Comment on above: Order Comment: Speci men Type: BLOOD SPECIMENOrdering Facility: [facility] Address: [address] [place] [phone] Performed By: #### 5 7021-8 ####[facility] LABCLIA [id number] [place] [address] CNOVSPon 03-11-2023 CNOVSP Normal [facility] metabolic 2000 panelon 03-11-2023 Albumin [Mass/Vol] 4.1 g/dL 3.9 - 4.9 g/dL [facility] ALP [Catalytic activity/Vol] 73 U/L 38 - 113 U/L [facility] ALT [Catalytic activity/Vol] 23 U/L 10 - 54 U/L [facility] Anion gap [Moles/Vol] 9 mmol/L 9 - 18 mmol/L [facility] AST [Catalytic activity/Vol] 19 U/L 14 - 40 U/L [facility] Bilirubin [Mass/Vol] 0.4 mg/dL 0.2 - 1.3 mg/dL [facility] Calcium [Mass/Vol] 9.7 mg/dL 8.5 - 10.2 mg/dL [facility] Chloride [Moles/Vol] 101 mmol/L 97 - 105 mmol/L [facility] CO2 [Moles/Vol] 28 mmol/L 22 - 30 mmol/L [facility] Creatinine [Mass/Vol] 0.89 mg/dL 0.73 - 1.22 mg/dL [facility] Estimated Glomerular Filtration Rate 95 mL/min/1.73m >=60 mL/min/1.73m [facility] Glucose [Mass/Vol] 143 mg/dL High 74 - 99 mg/dL [facility] Potassium [Moles/Vol] 3.5 mmol/L Low 3.7 - 5.1 mmol/L [facility] Protein [Mass/Vol] 7.2 g/dL 6.3 - 8.0 g/dL [facility] Sodium [Moles/Vol] 138 mmol/L 136 - 144 mmol/L [facility] Urea nitrogen [Mass/Vol] 27 mg/dL High 9 - 24 mg/dL [facility] Albumin [Mass/Vol] 4.1 g/dL Normal 3.9-4.9 [facility] Comment on above: Order Comment: Speci men Type: BLOOD SPECIMENOrdering Facility: [facility] Address: [address] [place] [address] Performed By: #### 2 4323-8 ####[facility] LABCLIA [id number] [place] [address] ALP [Catalytic activity/Vol] 73 U/L Normal 38-113 [facility] Comment on above: Order Comment: Speci men Type: BLOOD SPECIMENOrdering Facility: [facility] Address: [address] [place] [address] Performed By: #### 2 4323-8 ####[facility] LABCLIA [id number] [place] [address] ALT [Catalytic activity/Vol] 23 U/L Normal 10-54 [facility] Comment on above: Order Comment: Speci men Type: BLOOD SPECIMENOrdering Facility: [facility] Address: [address] [place] [address] Performed By: #### 2 4323-8 ####[facility] LABCLIA [id number] [place] [address] Anion gap [Moles/Vol] 9 mmol/L Normal 9-18 [facility] Comment on above: Order Comment: Speci men Type: BLOOD SPECIMENOrdering Facility: [facility] Address: [address] [place] [address] Performed By: #### 2 4323-8 ####[facility] LABCLIA [id number] [place] [address] AST [Catalytic activity/Vol] 19 U/L Normal 14-40 [facility] Comment on above: Order Comment: Speci men Type: BLOOD SPECIMENOrdering Facility: [facility] Address: [address] [place], [place] [address] Performed By: #### 2 4323-8 ####[facility] LABCLIA [id number] [place] [address] Bilirubin [Mass/Vol] 0.4 mg/dL Normal 0.2-1.[address] [facility] Comment on above: Order Comment: Speci men Type: BLOOD SPECIMENOrdering Facility: [facility] Address: [address] [place] [address] Performed By: #### 2 4323-8 ####[facility] LABCLIA [id number] [place] [address] Calcium [Mass/Vol] 9.7 mg/dL Normal 8.5-10.2 [facility] Comment on above: Order Comment: Speci men Type: BLOOD SPECIMENOrdering Facility: [facility] Address: [address] [place] [address] Performed By: #### 2 4323-8 ####[facility] LABCLIA [id number] [place] [address] Chloride [Moles/Vol] 101 mmol/L Normal 97-[address] [facility] Comment on above: Order Comment: Speci men Type: BLOOD SPECIMENOrdering Facility: [facility] Address: [address] [place] [address] Performed By: #### 2 4323-8 ####[facility] LABCLIA [id number] [place] [address] CO2 [Moles/Vol] 28 mmol/L Normal 22-30 [facility] Comment on above: Order Comment: Speci men Type: BLOOD SPECIMENOrdering Facility: [facility] Address: [address] [place] [address] Performed By: #### 2 4323-8 ####[facility] LABCLIA [id number] [place] [address] Creatinine [Mass/Vol] 0.89 mg/dL Normal 0.73-1.22 [facility] Comment on above: Order Comment: Ajay rausch Type: BLOOD SPECIMENOrdering Facility: [facility] Address: [address] [phone] Performed By: #### 2 4323-8 ####[facility] LABCLIA [id number] [place] [address] Creatinine and Glomerular filtration rate.predicted panel (S/P/Bld) 95 mL/min/1.73m??? Normal >=60 [facility] Comment on above: Order Comment: Specmanolo rausch Type: BLOOD SPECIMENOrdering Facility: [facility] Address: [address] Result Comment: Landy mated Glomerular Filtration Rate (eGFR) is calculated using the 2020 CKD-EPI creatinine equation. This equation utilizes serum creatinine, sex, and age as parameters. The creatinine assay has traceable calibration to isotope dilution-mass spectrometry. Refer to KDIGO guidelines for clinical interpretation. In patients with unstable renal function, e.g. those with acute kidney injury, the eGFR may not accurately reflect actual GFR. Performed By: #### 2 4323-8 ####[facility] LABCLIA [id number] [place] [address] Glucose [Mass/Vol] 143 mg/dL High 74-99 [facility] Comment on above: Order Comment: Ajay shalom Type: BLOOD SPECIMENOrdering Facility: [facility] Address: [address] [phone] Result Comment: The [place] [employer] (ADA) provides guidance for cutoff values for fasting glucose and random glucose. The ADA defines fasting as no caloric intake for at least 8 hours. Fasting plasma glucose results between 100 to 125 mg/dL indicate increased risk for diabetes (prediabetes).Fasting plasma glucose results greater than or equal to 126 mg/dL meet the criteria for diagnosis of diabetes. In the absence of unequivocal hyperglycemia, results should be confirmed by repeat testing. In a patient with classic symptoms of hyperglycemia or hyperglycemic crisis, random plasma glucose results greater than or equal to 200 mg/dL meet the criteria for diagnosis of diabetes.Reference: Standards of Medical Care in Diabetes 2016, [place] [employer]. Diabetes Care. 2016.39(Suppl 1). Performed By: #### 2 4323-8 ####[facility] LABCLIA [id number] [place] [address] Potassium [Moles/Vol] 3.5 mmol/L Low 3.7-5.1 [facility] Comment on above: Order Comment: Speci men Type: BLOOD SPECIMENOrdering Facility: [facility] Address: [address] [place] [address] Performed By: #### 2 4323-8 ####[facility] LABCLIA [id number] [place] [address] Protein [Mass/Vol] 7.2 g/dL Normal 6.3-8.0 [facility] Comment on above: Order Comment: Speci men Type: BLOOD SPECIMENOrdering Facility: [facility] Address: [address] [place] [address] Performed By: #### 2 4323-8 ####[facility] LABCLIA [id number] [place] [address] Sodium [Moles/Vol] 138 mmol/L Normal 136-144 [facility] Comment on above: Order Comment: Speci men Type: BLOOD SPECIMENOrdering Facility: [facility] Address: [address] [place] [address] Performed By: #### 2 4323-8 ####[facility] LABCLIA [id number] [place] [address] Urea nitrogen [Mass/Vol] 27 mg/dL High 9-24 [facility] Comment on above: Order Comment: Speci men Type: BLOOD SPECIMENOrdering Facility: [facility] Address: [address] [place] [address] Performed By: #### 2 4323-8 ####[facility] LABCLIA [id number] [place] [address] T4/FTI/T4Uon 03-11-2023 FTI 6.2 ug/dL Normal 5.3-10.8 [facility] Comment on above: Order Comment: Speci men Type: BLOOD SPECIMENOrdering Facility: [facility] Address: [address] [place] [address] Performed By: #### Lexi 4FALEJANDRO, 3015-3 ####[facility] LABCLIA [id number] [place] [address] [place] T4 [Mass/Vol] 5.3 ug/dL Low 5.5-10.2 [facility] Comment on above: Order Comment: Speci men Type: BLOOD SPECIMENOrdering Facility: [facility] Address: [address] [place] [address] Performed By: #### Lexi CHAN, 3015-3 ####[facility] LABIA [id number] [place] [address] [place] T4 uptake [Mass/Vol] 0.86 Low 0.91-1.[address] [facility] Comment on above: Order Comment: Speci men Type: BLOOD SPECIMENOrdering Facility: [facility] Address: [address] [place] [address] Performed By: #### Lexi CHAN, 3015-3 ####[facility] LABIA [id number] [place] [address] [place] TSH SerPl-aCncon 03-11-2023 TSH Qn 2.070 m[IU]/L Normal 0.270-4.200 [facility] Comment on above: Order Comment: Speci men Type: BLOOD SPECIMENOrdering Facility: [facility] Address: [address] [place] [address] Performed By: #### Lexi CHAN, 3015-3 ####[facility] LABIA [id number] [place] [address] [place] CNPNon 03-10-2023 CNPN Normal [facility] CNPNon 03-07-2023 CNPN Normal [facility] CNPNon 03-05-2023 CNPN Normal [facility] CBC W Auto Differential pane l (Bld)on 02-18-2023 Basophils (Bld) [#/Vol] 10*3/uL Normal <0.11 [facility] Comment on above: Order Comment: Speci men Type: BLOOD SPECIMENOrdering Facility: [facility] Address: [address] [place] [address] Performed By: #### 5 7021-8 ####[facility] LABCLIA [id number] [place] [address] Basophils/100 WBC (Bld) 0.3 % Normal [facility] Comment on above: Order Comment: Speci men Type: BLOOD SPECIMENOrdering Facility: [facility] Address: [address] [place] [address] Performed By: #### 5 7021-8 ####[facility] LABCLIA [id number] [place] [address] Differential cell count method Nom (Bld) Auto Normal [facility] Comment on above: Order Comment: Speci men Type: BLOOD SPECIMENOrdering Facility: [facility] Address: [address] [place] [address] Performed By: #### 5 7021-8 ####[facility] LABCLIA [id number] [place] [address] Eosinophils (Bld) [#/Vol] 0.03 10*3/uL Normal <0.46 [facility] Comment on above: Order Comment: Speci men Type: BLOOD SPECIMENOrdering Facility: [facility] Address: [address] [place] [address] Performed By: #### 5 7021-8 ####[facility] LABCLIA [id number] [place] [address] Eosinophils/100 WBC (Bld) 0.4 % Normal [facility] Comment on above: Order Comment: Speci men Type: BLOOD SPECIMENOrdering Facility: [facility] Address: [address] [address] Performed By: #### 5 7021-8 ####[facility] LABCLIA [id number] [place] [address] Erythrocyte distribution width (RBC) [Ratio] 15.7 % High 11.5-15.0 [facility] Comment on above: Order Comment: Speci men Type: BLOOD SPECIMENOrdering Facility: [facility] Address: [address] [place] [address] Performed By: #### 5 7021-8 ####[facility] LABIA [id number] [place] [address] Hematocrit (Bld) [Volume fraction] 40.6 % Normal 39.0-51.0 [facility] Comment on above: Order Comment: Speci men Type: BLOOD SPECIMENOrdering Facility: [facility] Address: [address] [place] [address] Performed By: #### 5 7021-8 ####[facility] LABIA [id number] [place] [address] Hemoglobin (Bld) [Mass/Vol] 14.3 g/dL Normal 13.0-17.0 [facility] Comment on above: Order Comment: Speci men Type: BLOOD SPECIMENOrdering Facility: [facility] Address: [address] [place] [address] Performed By: #### 5 7021-8 ####[facility] LABCLIA [id number] [place] [address] Immature granulocytes (Bld) [#/Vol] 0.03 10*3/uL Normal <0.10 [facility] Comment on above: Order Comment: Speci men Type: BLOOD SPECIMENOrdering Facility: [facility] Address: [address] [place] [address] Performed By: #### 5 7021-8 ####[facility] LABCLIA [id number] [place] [address] Immature granulocytes/100 WBC (Bld) 0.4 % Normal [facility] Comment on above: Order Comment: Speci men Type: BLOOD SPECIMENOrdering Facility: [facility] Address: [address] [place] [address] Performed By: #### 5 7021-8 ####[facility] LABCLIA [id number] [place] [address] Lymphocytes (Bld) [#/Vol] 1.28 10*3/uL Normal 1.00-4.00 [facility] Comment on above: Order Comment: Speci men Type: BLOOD SPECIMENOrdering Facility: [facility] Address: [address] [place] [address] Performed By: #### 5 7021-8 ####[facility] LABCLIA [id number] [place] [address] Lymphocytes/100 WBC (Bld) 19.2 % Normal [facility] Comment on above: Order Comment: Speci men Type: BLOOD SPECIMENOrdering Facility: [facility] Address: [address] [place] [address] Performed By: #### 5 7021-8 ####[facility] LABCLIA [id number] [place] [address] MCH (RBC) [Entitic mass] 31.0 pg Normal 26.0-34.0 [facility] Comment on above: Order Comment: Speci men Type: BLOOD SPECIMENOrdering Facility: [facility] Address: [address] [place] [address] Performed By: #### 5 7021-8 ####[facility] LABCLIA [id number] [place] [address] MCHC (RBC) [Mass/Vol] 35.2 g/dL Normal 30.5-36.0 [facility] Comment on above: Order Comment: Speci men Type: BLOOD SPECIMENOrdering Facility: [facility] Address: [address] [place], [place] [address] Performed By: #### 5 7021-8 ####[facility] LABCLIA [id number] [place] [address] MCV (RBC) [Entitic vol] 87.9 fL Normal 80.0-100.0 [facility] Comment on above: Order Comment: Speci men Type: BLOOD SPECIMENOrdering Facility: [facility] Address: [address] [place] [address] Performed By: #### 5 7021-8 ####[facility] LABCLIA [id number] [place] [address] Monocytes (Bld) [#/Vol] 0.88 10*3/uL High <0.87 [facility] Comment on above: Order Comment: Speci men Type: BLOOD SPECIMENOrdering Facility: [facility] Address: [address] [place] [address] Performed By: #### 5 7021-8 ####[facility] LABCLIA [id number] [place] [address] Monocytes/100 WBC (Bld) 13.2 % Normal [facility] Comment on above: Order Comment: Speci men Type: BLOOD SPECIMENOrdering Facility: [facility] Address: [address] [place] [address] Performed By: #### 5 7021-8 ####[facility] LABCLIA [id number] [place] [address] Neutrophils (Bld) [#/Vol] 4.43 10*3/uL Normal 1.45-7.50 [facility] Comment on above: Order Comment: Speci men Type: BLOOD SPECIMENOrdering Facility: [facility] Address: [address] [place] [address] Performed By: #### 5 7021-8 ####[facility] LABCLIA [id number] [place] [address] Neutrophils/100 WBC (Bld) 66.5 % Normal [facility] Comment on above: Order Comment: Speci men Type: BLOOD SPECIMENOrdering Facility: [facility] Address: [address] [address] Performed By: #### 5 7021-8 ####[facility] LABCLIA [id number] [place] [address] Nucleated RBC (Bld) [#/Vol] 10*3/uL Normal <0.01 [facility] Comment on above: Order Comment: Speci men Type: BLOOD SPECIMENOrdering Facility: [facility] Address: [address] [address] Performed By: #### 5 7021-8 ####[facility] LABCLIA [id number] [place] [address] Nucleated RBC/100 WBC (Bld) [Ratio] 0.0 /100 WBC Normal [facility] Comment on above: Order Comment: Speci men Type: BLOOD SPECIMENOrdering Facility: [facility] Address: [address] [address] Performed By: #### 5 7021-8 ####[facility] LABIA [id number] [place] [address] Platelet mean volume (Bld) [Entitic vol] 9.9 fL Normal 9.0-12.7 [facility] Comment on above: Order Comment: Speci men Type: BLOOD SPECIMENOrdering Facility: [facility] Address: [address] [address] Performed By: #### 5 7021-8 ####[facility] LABCLIA [id number] [place] [address] Platelets (Bld) [#/Vol] 208 10*3/uL Normal 150-400 [facility] Comment on above: Order Comment: Speci men Type: BLOOD SPECIMENOrdering Facility: [facility] Address: [address] [address] Performed By: #### 5 7021-8 ####[facility] LABCLIA [id number] [place] [address] RBC (Bld) [#/Vol] 4.62 10*6/uL Normal 4.20-6.00 [facility] Comment on above: Order Comment: Speci men Type: BLOOD SPECIMENOrdering Facility: [facility] Address: [address] [place] [address] Performed By: #### 5 7021-8 ####[facility] LABCLIA [id number] [place] [address] WBC (Bld) [#/Vol] 6.67 10*3/uL Normal 3.70-11.00 [facility] Comment on above: Order Comment: Speci men Type: BLOOD SPECIMENOrdering Facility: [facility] Address: [address] [place] [address] Performed By: #### 5 7021-8 ####[facility] LABCLIA [id number] [place] [address] CNOVSPon 02-18-2023 CNOVSP Normal [facility] Comprehensive metabolic 2000 panelon 02-18-2023 Albumin [Mass/Vol] 4.4 g/dL Normal 3.9-4.9 [facility] Comment on above: Order Comment: Speci men Type: BLOOD SPECIMENOrdering Facility: [facility] Address: [address] [place] [address] Performed By: #### 2 4323-8 ####[facility] LABCLIA [id number] [place] [address] ALP [Catalytic activity/Vol] 98 U/L Normal 38-113 [facility] Comment on above: Order Comment: Speci men Type: BLOOD SPECIMENOrdering Facility: [facility] Address: [address] [place] [address] Performed By: #### 2 4323-8 ####[facility] LABCLIA [id number] [place] [address] ALT [Catalytic activity/Vol] 16 U/L Normal 10-54 [facility] Comment on above: Order Comment: Speci men Type: BLOOD SPECIMENOrdering Facility: [facility] Address: [address] [address] Performed By: #### 2 4323-8 ####[facility] LABCLIA [id number] [place] [address] Anion gap [Moles/Vol] 12 mmol/L Normal 9-18 [facility] Comment on above: Order Comment: Speci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 [facility] Creatinine [Mass/Vol] 1.04 mg/dL 0.73 - 1.22 mg/dL [facility] Estimated Glomerular Filtration Rate 80 mL/min/1.73m >=60 mL/min/1.73m [facility] Glucose [Mass/Vol] 145 mg/dL High 74 - 99 mg/dL [facility] Potassium [Moles/Vol] 4.2 mmol/L 3.7 - 5.1 mmol/L [facility] Protein [Mass/Vol] 7.8 g/dL 6.3 - 8.0 g/dL [facility] Sodium [Moles/Vol] 135 mmol/L Low 136 - 144 mmol/L [facility] Urea nitrogen [Mass/Vol] 21 mg/dL 9 - 24 mg/dL [facility] LD LACTATE DEHYDROon 023 LDH [Catalytic activity/Vol] 183 U/L 135 - 225 U/L [facility] XR CHEST 1 Von 10-10-2022 XR CHEST 1 V Begin Addendum #1 On the left shoulder series dated 10/10/2022 there are surgical clips and surgical sutures within the left suprahilar region. There is a spiculated density within this region with an associated linear component extending laterally. Parenchymal scarring related to previous surgery could have this appearance however a CT examination of the chest is recommended for more detailed evaluation since there is no prior study to confirm stability. Original Report EXAM: XR CHEST 1 V HISTORY: Left arm pain. COMPARISON: 11/16/2021. TECHNIQUE: AP erect portable chest radiograph performed. FINDINGS: Stable median sternotomy wires. Stable volume loss and hazy attenuation of the left chest compared to the right with a focal area of patchy density within the left mid upper chest. There is no pneumothorax. There is no osseous abnormality. IMPRESSION: Stable volume loss left chest. There is also hazy attenuation throughout the left chest compared to the right and a focal area of patchy density within the left mid upper chest. A CT examination of the chest is recommended to help differentiate infiltrate from a mass. Normal [facility] XR SHOULDER LT 2V or >on XR SHOULDER LT 2V or > EXAM: XR SHOULDER LT 2V or > HISTORY: Left arm pain. COMPARISON: None. TECHNIQUE: 3 view left shoulder series performed portably. FINDINGS: The bony alignment and mineralization are within normal limits. There is no fracture. The acromioclavicular and glenohumeral articulations are unremarkable. There is a type I acromion. The acromiohumeral and coracohumeral intervals are maintained. Visualized portions of the ribs are unremarkable. There are surgical clips and sutures within the left suprahilar region. There is a spiculated density within this region with a linear component extending laterally. There is a calcified granuloma at the right lung apex. IMPRESSION: The left shoulder is unremarkable. Surgical clips and suture left suprahilar region. There is a spiculated density with a lateral linear component within this region which may represent parenchymal scar however there is no prior imaging to confirm stability of this. A CT examination of the chest is recommended for more detailed evaluation. Electronically authenticated by: LOVE ALBERTS Date: 2022-10-10 11:46 [address] [facility] LIPID PROFILEon 09-19-2022 CHOL-HDL RATIO NORM SEE BELOW Normal [facility] Comment on above: Result Comment: 3.3 - 4.4 LOW RISK 4.4 - 7.1 AVERAGE RISK 7.1 - 11.0 MODERATE RISK >11.0 HIGH RISK Performed By: #### L IPID #### [facility] [address] [place] [address] Dr. Usama Hobbs Cholesterol [Mass/Vol] 104 mg/dL Normal <=[address] [facility] Comment on above: Performed By: #### L IPID #### [facility] [address] [place] [address] Dr. Usama Hobbs Cholesterol in HDL [Mass/Vol] 36 mg/dL Critically low 40-[address] [facility] Comment on above: Performed By: #### L IPID #### [facility] [address] [address] [address] Usama Hobbs Cholesterol in LDL [Mass/Vol] 59.6 mg/dL Normal [facility] Comment on above: Performed By: #### L IPID #### [facility] [address] [place] [address] Dr. Usama Hobbs Cholesterol.total/Ch olesterol in HDL [Mass ratio] 2.9 {ratio} Normal [facility] Comment on above: Performed By: #### L IPID #### [facility] [address] [address] [address] Usama Hobbs HDL NORMAL > or = 60 mg/dl - LOW CARDIOVASCULAR RISK <40 mg/dl - HIGH CARDIOVASCULAR RISK Normal [facility] Comment on above: Performed By: #### L IPID #### [facility] [address] [address] [address] Usama Hobbs LDL CALC NORMAL SEE BELOW Normal [facility] Comment on above: Result Comment: <100 mg/dl OPTIMAL 100 - 129 mg/dl NEAR OR ABOVE OPTIMAL 130 - 159 mg/dl BORDERLINE HIGH 160 - 189 mg/dl HIGH >190 mg/dl VERY HIGH Performed By: #### L IPID #### [facility] [address] [address] [address] Usama Hobbs Triglyceride [Mass/Vol] 42 mg/dL Normal <=150 [facility] Comment on above: Performed By: #### L IPID #### [facility] [address] [address] [address] Usama Hobbs VLDL CALC 8.4 mg/dL Normal [facility] Comment on above: Performed By: #### L IPID #### [facility] [address] [address] [address] Usama Hobbs Office Visiton 09-18-2022 Follow-up visit [id number] Pedro Gu . 1955 M Date Provider [facility] No family history on file Level of Service:95070 [place] OFFICE/OUTPATIENT ESTABLISHED MOD MDM 30-39 MIN () Reason for Visit and Comments: Coronary Artery Disease [187] Peripheral Vascular Disease [458] Carotid Stenosis [Other] Hypertension [723386] Normal [facility] CBC W Auto Differential pane l (Bld)on 06-25-2022 Basophils (Bld) [#/Vol] <0.11 k/uL [facility] Basophils/100 WBC (Bld) 0.4 % [facility] Differential cell count method Nom (Bld) Auto [facility] Eosinophils (Bld) [#/Vol] 0.03 10*3/uL <0.46 k/uL [facility] Eosinophils/100 WBC (Bld) 0.6 % [facility] Erythrocyte distribution width (RBC) [Ratio] 14.1 % 11.5 - 15.0 % [facility] Hematocrit (Bld) [Volume fraction] 34.9 % Low 39.0 - 51.0 % [facility] Hemoglobin (Bld) [Mass/Vol] 12.5 g/dL Low 13.0 - 17.0 g/dL [facility] Immature granulocytes (Bld) [#/Vol] 0.03 10*3/uL <0.10 k/uL [facility] Immature granulocytes/100 WBC (Bld) 0.6 % [facility] Lymphocytes (Bld) [#/Vol] 0.75 10*3/uL Low 1.00 - 4.00 k/uL [facility] Lymphocytes/100 WBC (Bld) 14.0 % [facility] MCH (RBC) [Entitic mass] 32.9 pg 26.0 - 34.0 pg [facility] MCHC (RBC) [Mass/Vol] 35.8 g/dL 30.5 - 36.0 g/dL [facility] MCV (RBC) [Entitic vol] 91.8 fL 80.0 - 100.0 fL [facility] Monocytes (Bld) [#/Vol] 0.62 10*3/uL <0.87 k/uL [facility] Monocytes/100 WBC (Bld) 11.6 % [facility] Neutrophils (Bld) [#/Vol] 3.89 10*3/uL 1.45 - 7.50 k/uL [facility] Neutrophils/100 WBC (Bld) 72.8 % [facility] Nucleated RBC (Bld) [#/Vol] <0.01 k/uL [facility] Nucleated RBC/100 WBC (Bld) [Ratio] 0.0 /100 WBC [facility] Platelet mean volume (Bld) [Entitic vol] 9.8 fL 9.0 - 12.7 fL [facility] Platelets (Bld) [#/Vol] 208 10*3/uL 150 - 400 k/uL [facility] RBC (Bld) [#/Vol] 3.80 10*6/uL Low 4.20 - 6.00 m/uL [facility] WBC (Bld) [#/Vol] 5.34 10*3/uL 3.70 - 11.00 k/u L [facility] Comprehensive metabolic 2000 panelon 06-25-2022 Albumin [Mass/Vol] 4.4 g/dL 3.9 - 4.9 g/dL [facility] ALP [Catalytic activity/Vol] 72 U/L 38 - 113 U/L [facility] ALT [Catalytic activity/Vol] 27 U/L 10 - 54 U/L [facility] Anion gap [Moles/Vol] 12 mmol/L 9 - 18 mmol/L [facility] AST [Catalytic activity/Vol] 32 U/L 14 - 40 U/L [facility] Bilirubin [Mass/Vol] 0.7 mg/dL 0.2 - 1.3 mg/dL [facility] Calcium [Mass/Vol] 9.6 mg/dL 8.5 - 10.2 mg/dL [facility] Chloride [Moles/Vol] 97 mmol/L 97 - 105 mmol/L [facility] CO2 [Moles/Vol] 26 mmol/L 22 - 30 mmol/L [facility] Creatinine [Mass/Vol] 0.75 mg/dL 0.73 - 1.22 mg/dL [facility] Estimated Glomerular Filtration Rate 100 mL/min/1.73m >=60 mL/min/1.73m [facility] Glucose [Mass/Vol] 111 mg/dL High 74 - 99 mg/dL [facility] Potassium [Moles/Vol] 3.8 mmol/L 3.7 - 5.1 mmol/L [facility] Protein [Mass/Vol] 7.2 g/dL 6.3 - 8.0 g/dL [facility] Sodium [Moles/Vol] 135 mmol/L Low 136 - 144 mmol/L [facility] Urea nitrogen [Mass/Vol] 11 mg/dL 9 - 24 mg/dL [facility] CT CHEST W IVCONon [facility] XR CHEST 2V FRONTAL/LATon [facility] MRI LSPINE WO W CONon 2021 MRI LSPINE WO W CON EXAMINATION: MRI LSPINE WO W CON HISTORY: Lumbago with sciatica COMPARISON: No relevant comparison available. TECHNIQUE: Axial T1 and T2; Sagittal T1, T2, and STIR sequences. Images were performed before and after the administration of intravenous Dotarem contrast. FINDINGS: For the purposes of numbering, sagittal T2 image # 8 extends from the T11 vertebral body superiorly to the S3 level inferiorly. PARASPINAL AREA: Normal with no visible mass. BONES: Normal alignment with no acute fracture or bone edema. Heterogeneous T1 and T2 signal stable from the prior exam CORD/CAUDA EQUINA: Normal caliber, contour, and signal intensity. DISC LEVELS: 12-L1: No significant disc/facet abnormality, spinal stenosis, or foraminal stenosis. L1-L2: No significant disc/facet abnormality, spinal stenosis, or foraminal stenosis. L2-L3: No significant disc/facet abnormality, spinal stenosis, or foraminal stenosis. L3-L4: Mild to moderate disc space narrowing. Mild diffuse disc bulge. No central canal stenosis. Mild right and no left foraminal stenosis L4-L5: Mild to moderate disc space narrowing. Mild diffuse disc bulge. No central canal stenosis. Moderate right and no left foraminal stenosis L5-S1: Mild disc space narrowing and disc desiccation. Mild diffuse disc/osteophyte complex. No central canal stenosis. Mild bilateral foraminal stenosis IMPRESSION: Heterogeneous appearance of the vertebral bodies stable from the prior exam, nonspecific No enhancing mass Mild to moderate discogenic changes L2-S1 grossly stable. Foraminal stenosis at several levels as detailed Electronically authenticated by: BRANDON HENRY Date: 2022-05-23 19:51 Normal [facility] XR LSPINE MIN 4 VIEWSon 04-20 XR LSPINE MIN 4 VIEWS EXAMINATION: XR LSPINE MIN 4 VIEWS HISTORY: Low back pain ; chronic lumbar and right hip pain COMPARISON: XR lumbar spine 01/05/2020 FINDINGS: BONES: Mild degenerative facet arthropathy L3-L4 through L5-S1. No fracture spondylolisthesis. DISC SPACES: Mild narrowing L3-L4, L4-L5, L5-S1. PARASPINOUS: Endovascular stent within right common and external iliac artery. Marked atherosclerotic disease of aorta without visible aneurysm. OTHER: Negative. IMPRESSION: 1. Stable mild to moderate degenerative changes of lumbar spine. Electronically authenticated by: TRUDY GUTIERREZ Date: 2022-05-01 17:27 Normal [facility] BODYon 022 DE BONE [facility] BODY EXAMINATION: DE BONE [facility] BODY HISTORY: Primary malignant neoplasm of bronchus COMPARISON: No relevant comparison available. TECHNIQUE: After obtaining the patient's consent, 25.3 mCi Technetium 99m MDP was injected intravenously. Images were obtained approximately two hours later. FINDINGS: ABNORMALITIES: Increased activity bilateral acromioclavicular joints and right great toe, I favor degenerative change. No focal area of increased activity to suggest metastatic disease OTHER: Negative. IMPRESSION: No definite metastatic disease observed Electronically authenticated by: BRANDON HENRY Date: 2022-04-12 21:44 Normal [facility] US CAROTID ART BILon 022 US CAROTID ART JARED EXAMINATION: US CAROTID ART JARED HISTORY: Carotid artery occlusion without infarction COMPARISON: No relevant comparison available. TECHNIQUE: Duplex Doppler ultrasound analysis of carotid and vertebral arteries. . Bilateral carotid arterial duplex examination was performed using B-mode, color flow and spectral analysis. Carotid stenosis is reported according to validated velocity parameters, similar to NASCET criteria. FINDINGS: RIGHT CAROTID ARTERY Mild atherosclerotic plaque Subclavian: PSV: 200.2 cm/s cm/s EDV: 10.0 cm/s cm/s CCA: Prox: PSV: 115.6 cm/s cm/s EDV: 27.6 cm/s cm/s Mid: PSV: 106.5 cm/s cm/s EDV: 27.6 cm/s cm/s Distal: PSV: 102.6 cm/s cm/s EDV: 27.6 cm/s cm/s BULB: PSV: 108.7 cm/s cm/s EDV: 26.3 cm/s cm/s ICA: Prox: PSV: 115.2 cm/s cm/s EDV: 27.9 cm/s cm/s Mid: PSV: 97.5 cm/s cm/s EDV: 28.9 cm/s cm/s Distal: PSV: 87.1 cm/s cm/s EDV: 36.6 cm/s cm/s ECA: PSV: 71.6 cm/s cm/s EDV: 9.4 cm/s cm/s VERTEBRAL: PSV: 54.7 cm/s cm/s EDV: 19.8 cm/s cm/s ICA/CCA ratio: PSV: 1.1 EDV: 1.0 LEFT CAROTID ARTERY Moderate atherosclerotic plaque. Maximum area of reduction 69% in the bulb Subclavian: PSV: 127.0 cm/s cm/s EDV: 7.1 cm/s CCA: Prox: PSV: 97.9 cm/s cm/s EDV: 23.6 cm/s Mid: PSV: 121.6 cm/s cm/s EDV: 27.9 cm/s Distal: PSV: 133.0 cm/s cm/s EDV: 27.9 cm/s BULB: PSV: 181.9 cm/s cm/s EDV: 56.5 cm/s ICA: Prox: PSV: 207.5 cm/s cm/s EDV: 47.2 cm/s Mid: PSV: 109.0 cm/s cm/s EDV: 36.1 cm/s Distal: PSV: 49.8 cm/s cm/s EDV: 21.2 cm/s ECA: PSV: 83.9 cm/s cm/s EDV: 8.0 cm/s VERTEBRAL: PSV: 43.2 cm/s cm/s EDV: 16.8 cm/s ICA/CCA ratio: PSV: 1.6 EDV: 1.7 IMPRESSION: 0-49% flow stenosis in the right internal carotid artery Elevated flow velocity proximal left ICA, suggesting 50-69% flow stenosis Spectral Doppler US Thresholds (Reference: Mitchell EG, et al. Radiology 2000; 214:247-252) Stenosis (%) PSV (cm/sec) VICA/VCCA 0-49 <150 <2.5 50-69 150-225 2.5-4.0 >70 >225 >4.0 Electronically authenticated by: BRANDON HENRY Date: 2022-03-22 17:14 [address] [facility] PRBC LEUKOREDUCEDon 02-11-20 ABO and Rh group Nom (Bld) Cross Match Result Compatible Unit Blood Type A Pos Unit Number [id number] Status Information Transfused Product ID Red Blood Cells Product Code [id number] Cross Match Result Compatible Unit Blood Type A Pos Unit Number [id number] Status Information Transfused Product ID Red Blood Cells Product Code [id number] Normal [facility] Comment on above: Performed By: #### P SAD #### [facility] [address] [place] [address] Dr. Usama Hobbs ABO RH RETYPEon 02-08-2022 ABO and Rh group Nom (Bld) DONE Normal [facility] Comment on above: Performed By: #### R ETYPE #### [facility] [address] [place] [address] Dr. Usama Hobbs LD LACTATE DEHYDROon 022 LDH [Catalytic activity/Vol] 186 U/L 135 - 225 U/L [facility] TYPE AND SCREENon 02-08-2022 TYPE AND SCREEN Negative Normal [facility] Comment on above: Performed By: #### P SAD #### [facility] [address] [place] [address] Dr. Usama Hobbs HEMOGRAM AND PLATELon 2021 Hematocrit (Bld) [Volume fraction] 21.0 % Critically low 42.0-54.0 [facility] Comment on above: Result Comment: dr haider marcos transfusionT&S ordered Performed By: #### B BANKING PARALEGAL, CMP #### [facility] [address] [place] [address] Dr. Usama Hobbs Hemoglobin (Bld) [Mass/Vol] 7.3 g/dL Critically low 14.0-18.0 [facility] Comment on above: Performed By: #### B BANKING PARALEGAL, CMP #### [facility] [address] [place] [address] Dr. Usama Hobbs MCH (RBC) [Entitic mass] 31.7 pg Normal 25.9-34.0 [facility] Comment on above: Performed By: #### B BANKING PARALEGAL, CMP #### [facility] [address] [place] [address] Dr. Usama Hobbs MCHC (RBC) [Mass/Vol] 34.8 g/dL Normal 29.9-35.[address] [facility] Comment on above: Performed By: #### B BANKING PARALEGAL, CMP #### [facility] [address] [place] [address] Dr. Usama Hobbs MCV (RBC) [Entitic vol] 91.3 fL Normal 80.0-94.0 [facility] Comment on above: Performed By: #### B BANKING PARALEGAL, CMP #### [facility] [address] [place] [address] Dr. Usama Hobbs PLT 89 103/ul Critically low 150-450 [facility] Comment on above: Performed By: #### B BANKING PARALEGAL, CMP #### [facility] [address] [place] [address] Dr. Usama Hobbs RBC 2.30 106/ul Critically low 4.70-6.10 [facility] Comment on above: Performed By: #### B BANKING PARALEGAL, CMP #### [facility] [address] [place] [address] Dr. Usama Hobbs WBC 2.0 103/ul Critically low 4.0-11.0 [facility] Comment on above: Performed By: #### B BANKING PARALEGAL, CMP #### [facility] [address] [place] [address] Dr. Usama Hobbs RETIC COUNTon 02-07-2022 Reticulocytes (Bld) [#/Vol] 0.55685 10*3/uL 0.018 - 0.100 M/uL [facility] Reticulocytes (Bld) [#/Vol]o n 02-07-2022 Reticulocytes/100 RBC (Bld) 2.3 % High 0.4 - 2.0 % [facility] XR CHEST 2V FRONTAL/LATon [facility] BNPon 12-07-2021 Natriuretic peptide B (Bld) [Mass/Vol] 140.0 pg/mL Normal <=900.0 [facility] Comment on above: Performed By: #### P SAD #### [facility] [address] [place] [address] Dr. Usama Hobbs CBC AUTO DIFFon 12-07-2021 BASO # 0.0 103/ul Normal 0.0-0.1 [facility] Comment on above: Performed By: #### B BANKING PARALEGAL, CMP #### [facility] [address] [place] [address] Dr. Usama Hobbs Basophils/100 WBC (Bld) 0.2 % Normal 0.2-2.0 [facility] Comment on above: Performed By: #### B BANKING PARALEGAL, CMP #### [facility] [address] [place] [address] Dr. Usama Hobbs EO # 0.1 103/ul Normal 0.0-0.[address] [facility] Comment on above: Performed By: #### B BANKING PARALEGAL, CMP #### [facility] [address] [place] [address] Dr. Usama Hobbs Eosinophils/100 WBC (Bld) 2.0 % Normal 0.9-7.0 [facility] Comment on above: Performed By: #### B BANKING PARALEGAL, CMP #### [facility] [address] [place] [address] Dr. Usama Hobbs Erythrocyte distribution width (RBC) [Ratio] 12.9 % Normal 11.0-15.0 [facility] Comment on above: Performed By: #### B BANKING PARALEGAL, CMP #### [facility] [address] [place] [address] Dr. Usama Hobbs Hematocrit (Bld) [Volume fraction] 32.6 % Critically low 42.0-54.0 [facility] Comment on above: Performed By: #### B BANKING PARALEGAL, CMP #### [facility] [address] [place] [address] Dr. Usama Hobbs Hemoglobin (Bld) [Mass/Vol] 11.0 g/dL Critically low 14.0-18.0 [facility] Comment on above: Performed By: #### B BANKING PARALEGAL, CMP #### [facility] [address] [place] [address] Dr. Usama Hobbs IG # 0.02 10e3/ul Normal 0.00-0.[address] [facility] Comment on above: Performed By: #### B BANKING PARALEGAL, CMP #### [facility] [address] [place] [address] Dr. Usama Hobbs IG % 0.4 % Normal 0.0-0.[address] [facility] Comment on above: Performed By: #### B BANKING PARALEGAL, CMP #### [facility] [address] [place] [address] Dr. Usama Hobbs LYMPH # 0.6 103/ul Critically low 1.2-3.[address] [facility] Comment on above: Performed By: #### B BANKING PARALEGAL, CMP #### [facility] [address] [place] [address] Dr. Usama Hobbs Lymphocytes/100 WBC (Bld) 12.9 % Critically low 20.5-60.[address] [facility] Comment on above: Performed By: #### B BANKING PARALEGAL, CMP #### [facility] [address] [place] [address] Dr. Usama Hobbs MANUAL DIFF REQ NO Normal The [facility] Comment on above: Performed By: #### B BANKING PARALEGAL, CMP #### [facility] [address] [place] [address] Dr. Usama Hobbs MCH (RBC) [Entitic mass] 30.1 pg Normal 25.9-34.[address] [facility] Comment on above: Performed By: #### B BANKING PARALEGAL, CMP #### [facility] [address] [place] [address] Dr. Usama Hobbs MCHC (RBC) [Mass/Vol] 33.7 g/dL Normal 29.9-35.[address] [facility] Comment on above: Performed By: #### B BANKING PARALEGAL, CMP #### [facility] [address] [place] [address] Dr. Usama Hobbs MCV (RBC) [Entitic vol] 89.1 fL Normal 80.0-94.[address] [facility] Comment on above: Performed By: #### B BANKING PARALEGAL, CMP #### [facility] [address] [place] [address] Dr. Usama Hobbs MONO # 0.3 103/ul Normal 0.3-0.[address] [facility] Comment on above: Performed By: #### B BANKING PARALEGAL, CMP #### [facility] [address] [place] [address] Dr. Usama Hobbs Monocytes/100 WBC (Bld) 5.1 % Normal 1.7-12.[address] [facility] Comment on above: Performed By: #### B BANKING PARALEGAL, CMP #### [facility] [address] [place] [address] Dr. Usama Hobbs NEUT # 3.9 103/ul Normal 1.4-6.[address] [facility] Comment on above: Performed By: #### B BANKING PARALEGAL, CMP #### [facility] [address] [place] [address] Dr. Usama Hobbs Neutrophils/100 WBC (Bld) 79.4 % Critically high 43.0-75.0 [facility] Comment on above: Performed By: #### B BANKING PARALEGAL, CMP #### [facility] [address] [place] [address] Dr. Usama Hobbs Platelet mean volume (Bld) [Entitic vol] 10.9 fL Normal 9.5-13.5 [facility] Comment on above: Performed By: #### B BANKING PARALEGAL, CMP #### [facility] [address] [place] [address] Dr. Usama Hobbs PLT 182 103/ul Normal 150-[address] [facility] Comment on above: Performed By: #### B BANKING PARALEGAL, CMP #### [facility] [address] [place] [address] Dr. Usama Hobbs RBC 3.66 106/ul Critically low 4.70-6.[address] [facility] Comment on above: Performed By: #### B BANKING PARALEGAL, CMP #### [facility] [address] [place] [address] Dr. Usama Hobbs WBC 4.9 103/ul Normal 4.0-11.0 [facility] Comment on above: Performed By: #### B BANKING PARALEGAL, CMP #### [facility] [address] [place] [address] Dr. Usama Hobbs TSHon 12-07-2021 TSH 1.474 uIU/mL Normal 0.358-3.[address] [facility] Comment on above: Performed By: #### P SAD #### [facility] [address] [place] [address] Dr. Usama Hobbs TSH RANGE SEE BELOW Normal The [facility] Comment on above: Result Comment: <0.3 4 UIU/ml HYPERTHYROID 0.34-5.60 UIU/ml EUTHYROID >5.60 UIU/ml HYPOTHYROID Performed By: #### P SAD #### [facility] [address] [place] [address] Dr. Usama Hobbs URIC ACID BLOODon 11-26-2021 Urate [Mass/Vol] 7.0 mg/dL 4.0 - 8.1 mg/dL [facility] Basic metabolic 2000 panelon 11-21-2021 Anion gap [Moles/Vol] 12 mmol/L 9 - 18 mmol/L [facility] Calcium [Mass/Vol] 9.2 mg/dL 8.5 - 10.2 mg/dL [facility] Chloride [Moles/Vol] 102 mmol/L 97 - 105 mmol/L [facility] CO2 [Moles/Vol] 25 mmol/L 22 - 30 mmol/L [facility] Creatinine [Mass/Vol] 1.86 mg/dL High 0.73 - 1.22 mg/dL [facility] Estimated Glomerular Filtration Rate 40 mL/min/1.73m Low >=60 mL/min/1.73m [facility] Glucose [Mass/Vol] 87 mg/dL 74 - 99 mg/dL [facility] Potassium [Moles/Vol] 3.7 mmol/L 3.7 - 5.1 mmol/L [facility] Sodium [Moles/Vol] 139 mmol/L 136 - 144 mmol/L [facility] Urea nitrogen [Mass/Vol] 29 mg/dL High 9 - 24 mg/dL [facility] Basic metabolic 2000 panelon 11-19-2021 Anion gap [Moles/Vol] 12 mmol/L 9 - 18 mmol/L [facility] Calcium [Mass/Vol] 9.2 mg/dL 8.5 - 10.2 mg/dL [facility] Chloride [Moles/Vol] 104 mmol/L 97 - 105 mmol/L [facility] CO2 [Moles/Vol] 24 mmol/L 22 - 30 mmol/L [facility] Creatinine [Mass/Vol] 2.09 mg/dL High 0.73 - 1.22 mg/dL [facility] Estimated Glomerular Filtration Rate 35 mL/min/1.73m Low >=60 mL/min/1.73m [facility] Glucose [Mass/Vol] 79 mg/dL 74 - 99 mg/dL [facility] Potassium [Moles/Vol] 3.6 mmol/L Low 3.7 - 5.1 mmol/L [facility] Sodium [Moles/Vol] 140 mmol/L 136 - 144 mmol/L [facility] Urea nitrogen [Mass/Vol] 27 mg/dL High 9 - 24 mg/dL [facility] BNPon 11-18-2021 Natriuretic peptide B (Bld) [Mass/Vol] 2644.0 pg/mL Critically high <=900.0 [facility] Comment on above: Performed By: #### B BANKING PARALEGAL, CMP #### [facility] [address] [place] [address] Dr. Usama Hobbs CBC W MANUAL DIFFon 11-19-19 22 ATYPICAL LYMPH # Normal [facility] Comment on above: Performed By: #### C BCMAN #### [facility] [address] [place] [address] Dr. Usama Hobbs ATYPICAL LYMPH % Normal [facility] Comment on above: Performed By: #### C BCMAN #### [facility] [address] [place] [address] Dr. Usama Hobbs BAND # 0.0 103/ul Normal 0.0-0.[address] [facility] Comment on above: Performed By: #### C LUIS #### [facility] [address] [place] [address] Dr. Usama Hobbs BAND % 2 % Normal 0-5 [facility] Comment on above: Performed By: #### C BCMAN #### [facility] [address] [place] [address] Dr. Usama Hobbs BASOM # 0.00 103/ul Normal 0.00-0.10 [facility] Comment on above: Performed By: #### C BCANATOLY #### [facility] [address] [place] [address] Dr. Usama Hobbs BASOM % 0.0 % Critically low 0.2-2.[address] [facility] Comment on above: Performed By: #### C BCANATOLY #### [facility] [address] [place] [address] Dr. Usama Hobbs BLAST # Normal [facility] Comment on above: Performed By: #### C BCMAN #### [facility] [address] [place] [address] Dr. Usama Hobbs BLAST % Normal [facility] Comment on above: Performed By: #### C BCMAN #### [facility] [address] [place] [address] Dr. Usama Hobbs CORRECTED WBC Normal 4.0-11.0 [facility] Comment on above: Performed By: #### C LUIS #### [facility] [address] [address] [address] Usama Hobbs EOS # 0.10 103/ul Normal 0.00-0.70 [facility] Comment on above: Performed By: #### C LUIS #### [facility] [address] [address] [address] Usama Hobbs EOS% 5.0 % Normal 0.9-7.0 [facility] Comment on above: Performed By: #### C LUIS #### [facility] [address] [place] [address] Dr. Usama Hobbs HCT 28.8 % Critically low 42.0-54.0 [facility] Comment on above: Performed By: #### C LUSI #### [facility] [address] [place] [address] Dr. Usama Hobbs HGB 9.4 g/dl Critically low 14.0-18.0 [facility] Comment on above: Performed By: #### C LUIS #### [facility] [address] [place] [address] Dr. Usama Hobbs LYMPHM # 0.71 103/ul Critically low 1.20-3.80 [facility] Comment on above: Performed By: #### C LUIS #### [facility] [address] [place] [address] Dr. Usama Hobbs LYMPHM% 34.0 % Normal 20.5-60.0 [facility] Comment on above: Performed By: #### C LUIS #### [facility] [address] [place] [address] Dr. Usama Hobbs MCH 30.0 pg Normal 25.9-34.0 [facility] Comment on above: Performed By: #### C LUIS #### [facility] [address] [place] [address] Dr. Usama Hobbs MCHC 32.6 g/dl Normal 29.9-35.[address] [facility] Comment on above: Performed By: #### C LUIS #### [facility] [address] [address] [address] Usama Hobbs MCV 92.0 fL Normal 80.0-94.0 [facility] Comment on above: Performed By: #### C LUIS #### [facility] [address] [place] [address] Dr. Usama Hobbs METAMYELOCYTE # Normal [facility] Comment on above: Performed By: #### C LUIS #### [facility] [address] [place] [address] Dr. Usama Hobbs METAMYELOCYTE % Normal [facility] Comment on above: Performed By: #### C LUIS #### [facility] [address] [place] [address] Dr. Usama Hobbs MONOM# 0.10 103/ul Critically low 0.30-0.80 [facility] Comment on above: Performed By: #### C LUIS #### [facility] [address] [place] [address] Dr. Usama Hobbs MONOM% 5.0 % Normal 1.7-12.0 [facility] Comment on above: Performed By: #### C LUIS #### [facility] [address] [place] [address] Dr. Usama Hobbs MPV 10.7 fL Normal 9.5-13.5 [facility] Comment on above: Performed By: #### C LUIS #### [facility] [address] [place] [address] Dr. Usama Hobbs MYELOCYTE # Normal [facility] Comment on above: Performed By: #### C LUIS #### [facility] [address] [place] [address] Dr. Usama Hobbs MYELOCYTE % Normal [facility] Comment on above: Performed By: #### C LUIS #### [facility] [address] [place] [address] Dr. Usama Hobbs NRBC Normal [facility] Comment on above: Performed By: #### C LUIS #### [facility] [address] [place] [address] Dr. Usama Hobbs PLT 149 103/ul Critically low 150-450 [facility] Comment on above: Performed By: #### C LUIS #### [facility] [address] [place] [address] Dr. Usama Hobbs RBC 3.13 106/ul Critically low 4.70-6.10 [facility] Comment on above: Performed By: #### C LUIS #### [facility] [address] [place] [address] Dr. Usama Hobbs RDW 12.3 % Normal 11.0-15.0 [facility] Comment on above: Performed By: #### C LUIS #### [facility] [address] [place] [address] Dr. Usama Hobbs SEG # 1.13 103/ul Critically low 1.40-6.50 [facility] Comment on above: Performed By: #### C LUIS #### [facility] [address] [place] [address] Dr. Usama Hobbs SEG % 54.0 % Normal 43.0-75.0 [facility] Comment on above: Performed By: #### C LUIS #### [facility] [address] [place] [address] Dr. Usama Hobbs WBC 2.1 103/ul Critically low 4.0-11.0 [facility] Comment on above: Performed By: #### Kyara SMITH #### [facility] [address] [place] [address] Dr. Usama Hobbs CULTURE SPUTUMon 11-18-2021 CULTURE SPUTUM Culture Observations: Normal respiratory callie also seen Isolate 1 Adwoa Albicans Growth of Normal [facility] Comment on above: Performed By: #### P SAD #### [facility] [address] [place] [address] Dr. Usama Hobbs PROF 14(COMP METB)on 022 Albumin [Mass/Vol] 2.8 g/dL Critically low 3.4-5.[address] [facility] Comment on above: Performed By: #### B BANKING PARALEGAL, CMP #### [facility] [address] [place] [address] Dr. Usama Hobbs Albumin/Globulin [Mass ratio] 0.8 {ratio} Normal [facility] Comment on above: Performed By: #### B BANKING PARALEGAL, CMP #### [facility] [address] [place] [address] Dr. Usama Hobbs ALP [Catalytic activity/Vol] 56 U/L Normal 46-116 [facility] Comment on above: Performed By: #### B BANKING PARALEGAL, CMP #### [facility] [address] [place] [address] Dr. Usama Hobbs ALT [Catalytic activity/Vol] 22 U/L Normal 16-63 [facility] Comment on above: Performed By: #### B BANKING PARALEGAL, CMP #### [facility] [address] [place] [address] Dr. Usama Hobbs Anion gap [Moles/Vol] 14.5 mmol/L Normal [facility] Comment on above: Performed By: #### B BANKING PARALEGAL, CMP #### [facility] [address] [place] [address] Dr. Usama Hobbs AST [Catalytic activity/Vol] 17 U/L Normal 15-37 [facility] Comment on above: Performed By: #### B BANKING PARALEGAL, CMP #### [facility] [address] [place] [address] Dr. Usama Hobbs Bilirubin [Mass/Vol] 0.4 mg/dL Normal 0.2-1.0 [facility] Comment on above: Performed By: #### B BANKING PARALEGAL, CMP #### [facility] [address] [place] [address] Dr. Usama Hobbs Calcium [Mass/Vol] 7.8 mg/dL Critically low 8.5-10.1 [facility] Comment on above: Performed By: #### B BANKING PARALEGAL, CMP #### [facility] [address] [place] [address] Dr. Usama Hobbs Chloride [Moles/Vol] 104 mmol/L Normal 98-107 [facility] Comment on above: Performed By: #### B BANKING PARALEGAL, CMP #### [facility] [address] [place] [address] Dr. Usama Hobbs CO2 [Moles/Vol] 25.0 mmol/L Normal 21.0-32.0 [facility] Comment on above: Performed By: #### B BANKING PARALEGAL, CMP #### [facility] [address] [address] [address] Usama Hobbs Creatinine [Mass/Vol] 1.97 mg/dL Critically high 0.70-1.[address] [facility] Comment on above: Performed By: #### B BANKING PARALEGAL, CMP #### [facility] [address] [address] [address] Usama Hobbs EGFR-AF PALAUAN 42 mL/min/1.73m2 Critically low >=[address] [facility] Comment on above: Performed By: #### B BANKING PARALEGAL, CMP #### [facility] [address] [place] [address] Dr. Usama Hobbs EGFR-NON AF PALAUAN 34 mL/min/1.73m2 Critically low >=[address] [facility] Comment on above: Performed By: #### B BANKING PARALEGAL, CMP #### [facility] [address] [place] [address] Dr. Usama Hobbs Globulin (S) [Mass/Vol] 3.3 g/dL Normal [facility] Comment on above: Performed By: #### B BANKING PARALEGAL, CMP #### [facility] [address] [place] [address] Dr. Usama Hobbs Glucose [Mass/Vol] 91 mg/dL Normal 74-[address] [facility] Comment on above: Performed By: #### B BANKING PARALEGAL, CMP #### [facility] [address] [place] [address] Dr. Usama Hobbs Potassium [Moles/Vol] 3.5 mmol/L Normal 3.5-5.[address] [facility] Comment on above: Performed By: #### B BANKING PARALEGAL, CMP #### [facility] [address] [place] [address] Dr. Usama Hobbs Protein [Mass/Vol] 6.1 g/dL Normal 6.1-8.[address] [facility] Comment on above: Performed By: #### B BANKING PARALEGAL, CMP #### [facility] [address] [place] [address] Dr. Usama Hobbs Sodium [Moles/Vol] 140 mmol/L Normal 136-[address] [facility] Comment on above: Performed By: #### B BANKING PARALEGAL, CMP #### [facility] [address] [place] [address] Dr. Usama Hobbs Urea nitrogen [Mass/Vol] 18.0 mg/dL Normal 7.0-18.[address] [facility] Comment on above: Performed By: #### B BANKING PARALEGAL, CMP #### [facility] [address] [place] [address] Dr. Usama Hobbs Urea nitrogen/Creatinine [Mass ratio] 9.1 mg/mg Normal [facility] Comment on above: Performed By: #### B BANKING PARALEGAL, CMP #### [facility] [address] [place] [address] Dr. Usama Hobbs T3, TOTAL (TRIIODOTHYRONINE) on 11-18-2021 T3, TOTAL 101 ng/dL Normal 71-180 [facility] Comment on above: Performed By: #### T 3TOTAL #### [facility] [address] [place] [address] Dr. Usama Hobbs BNPon 11-17-2021 Natriuretic peptide B (Bld) [Mass/Vol] 6047.0 pg/mL Critically high <=900.[address] [facility] Comment on above: Performed By: #### C MP, BNP #### [facility] [address] [place] [address] Dr. Usama Hobbs CBC AUTO DIFFon 11-17-2021 BASO # 0.0 103/ul Normal 0.0-0.1 [facility] Comment on above: Performed By: #### C BC #### [facility] [address] [place] [address] Dr. Usama Hobbs Basophils/100 WBC (Bld) 0.4 % Normal 0.2-2.[address] [facility] Comment on above: Performed By: #### C BC #### [facility] [address] [place] [address] Dr. Usama Hobbs EO # 0.1 103/ul Normal 0.0-0.7 [facility] Comment on above: Performed By: #### C BC #### [facility] [address] [place] [address] Dr. Usama Hobbs Eosinophils/100 WBC (Bld) 6.2 % Normal 0.9-7.0 [facility] Comment on above: Performed By: #### C BC #### [facility] [address] [place] [address] Dr. Usama Hobbs Erythrocyte distribution width (RBC) [Ratio] 12.3 % Normal 11.0-15.0 [facility] Comment on above: Performed By: #### C BC #### [facility] [address] [place] [address] Dr. Usama Hobbs Hematocrit (Bld) [Volume fraction] 31.8 % Critically low 42.0-54.0 [facility] Comment on above: Performed By: #### C BC #### [facility] [address] [place] [address] Dr. Usama Hobbs Hemoglobin (Bld) [Mass/Vol] 10.5 g/dL Critically low 14.0-18.0 [facility] Comment on above: Performed By: #### C BC #### [facility] [address] [place] [address] Dr. Usama Hobbs IG # 0.01 10e3/ul Normal 0.00-0.03 [facility] Comment on above: Performed By: #### C BC #### [facility] [address] [place] [address] Dr. Usama Hobbs IG % 0.4 % Normal 0.0-0.5 [facility] Comment on above: Performed By: #### C BC #### [facility] [address] [place] [address] Dr. Usama Hobbs LYMPH # 0.6 103/ul Critically low 1.2-3.[address] [facility] Comment on above: Performed By: #### C BC #### [facility] [address] [place] [address] Dr. Usama Hobbs Lymphocytes/100 WBC (Bld) 27.4 % Normal 20.5-60.0 [facility] Comment on above: Performed By: #### C BC #### [facility] [address] [place] [address] Dr. Usama Hobbs MANUAL DIFF REQ NO Normal [facility] Comment on above: Performed By: #### C BC #### [facility] [address] [place] [address] Dr. Usama Hobbs MCH (RBC) [Entitic mass] 30.3 pg Normal 25.9-34.0 [facility] Comment on above: Performed By: #### C BC #### [facility] [address] [place] [address] Dr. Usama Hobbs MCHC (RBC) [Mass/Vol] 33.0 g/dL Normal 29.9-35.2 [facility] Comment on above: Performed By: #### C BC #### [facility] [address] [place] [address] Dr. Usama Hobbs MCV (RBC) [Entitic vol] 91.6 fL Normal 80.0-94.0 [facility] Comment on above: Performed By: #### C BC #### [facility] [address] [place] [address] Dr. Usama Hobbs MONO # 0.4 103/ul Normal 0.3-0.8 [facility] Comment on above: Performed By: #### C BC #### [facility] [address] [place] [address] Dr. Usama Hobbs Monocytes/100 WBC (Bld) 17.3 % Critically high 1.7-12.0 [facility] Comment on above: Performed By: #### C BC #### [facility] [address] [place] [address] Dr. Usama Hobbs NEUT # 1.1 103/ul Critically low 1.4-6.[address] [facility] Comment on above: Performed By: #### C BC #### [facility] [address] [place] [address] Dr. Usama Hobbs Neutrophils/100 WBC (Bld) 48.3 % Normal 43.0-75.0 [facility] Comment on above: Performed By: #### C BC #### [facility] [address] [address] [address] Usama Hobbs Platelet mean volume (Bld) [Entitic vol] 10.9 fL Normal 9.5-13.5 [facility] Comment on above: Performed By: #### C BC #### [facility] [address] [address] [address] Usama Hobbs PLT 174 103/ul Normal 150-450 [facility] Comment on above: Performed By: #### C BC #### [facility] [address] [place] [address] Dr. Usama Hobbs RBC 3.47 106/ul Critically low 4.70-6.10 [facility] Comment on above: Performed By: #### C BC #### [facility] [address] [place] [address] Dr. Usama Hobbs WBC 2.3 103/ul Critically low 4.0-11.0 [facility] Comment on above: Performed By: #### C BC #### [facility] [address] [place] [address] Dr. Usama Hobbs PROF 14(COMP METB)on 022 Albumin [Mass/Vol] 3.3 g/dL Critically low 3.4-5.0 [facility] Comment on above: Performed By: #### C MP, BNP #### [facility] [address] [place] [address] Dr. Usama Hobbs Albumin/Globulin [Mass ratio] 0.9 {ratio} Normal [facility] Comment on above: Performed By: #### C MP, BNP #### [facility] [address] [place] [address] Dr. Usama Hobbs ALP [Catalytic activity/Vol] 73 U/L Normal 46-116 [facility] Comment on above: Performed By: #### C MP, BNP #### [facility] [address] [place] [address] Dr. Usama Hobbs ALT [Catalytic activity/Vol] 31 U/L Normal 16-63 [facility] Comment on above: Performed By: #### C MP, BNP #### [facility] [address] [address] [address] Usama Hobbs Anion gap [Moles/Vol] 13.8 mmol/L Normal [facility] Comment on above: Performed By: #### C MP, BNP #### [facility] [address] [address] [address] Usama Hobbs AST [Catalytic activity/Vol] 22 U/L Normal 15-37 [facility] Comment on above: Performed By: #### C MP, BNP #### [facility] [address] [address] [address] Usama Hobbs Bilirubin [Mass/Vol] 0.6 mg/dL Normal 0.2-1.0 [facility] Comment on above: Performed By: #### C MP, BNP #### [facility] [address] [place] [address] Dr. Usama Hobbs Calcium [Mass/Vol] 8.3 mg/dL Critically low 8.5-10.1 [facility] Comment on above: Performed By: #### C MP, BNP #### [facility] [address] [address] [address] Usama Hobbs Chloride [Moles/Vol] 105 mmol/L Normal 98-107 [facility] Comment on above: Performed By: #### C MP, BNP #### [facility] [address] [place] [address] Dr. Usama Hobbs CO2 [Moles/Vol] 26.1 mmol/L Normal 21.0-32.0 [facility] Comment on above: Performed By: #### C MP, BNP #### [facility] [address] [place] [address] Dr. Usama Hobbs Creatinine [Mass/Vol] 2.05 mg/dL Critically high 0.70-1.30 [facility] Comment on above: Performed By: #### C MP, BNP #### [facility] [address] [address] [address] Usama Hobbs EGFR-AF PALAUAN 40 mL/min/1.73m2 Critically low >=60 [facility] Comment on above: Performed By: #### C MP, BNP #### [facility] [address] [address] [address] Usama Hobbs EGFR-NON AF PALAUAN 33 mL/min/1.73m2 Critically low >=60 [facility] Comment on above: Performed By: #### C MP, BNP #### [facility] [address] [address] [address] Usama Hobbs Globulin (S) [Mass/Vol] 3.7 g/dL Normal [facility] Comment on above: Performed By: #### C MP, BNP #### [facility] [address] [address] [address] Usama Hobbs Glucose [Mass/Vol] 86 mg/dL Normal 74-106 [facility] Comment on above: Performed By: #### C MP, BNP #### [facility] [address] [address] [address] Usama Hobbs Potassium [Moles/Vol] 3.9 mmol/L Normal 3.5-5.[address] [facility] Comment on above: Performed By: #### C MP, BNP #### [facility] [address] [address] [address] Usama Hobbs Protein [Mass/Vol] 7.0 g/dL Normal 6.1-8.[address] [facility] Comment on above: Performed By: #### C MP, BNP #### [facility] [address] [address] [address] Usama Hobbs Sodium [Moles/Vol] 141 mmol/L Normal 136-[address] [facility] Comment on above: Performed By: #### C MP, BNP #### [facility] [address] [address] [address] Usama Hobbs Urea nitrogen [Mass/Vol] 21.0 mg/dL Critically high 7.0-18.0 [facility] Comment on above: Performed By: #### C MP, BNP #### [facility] [address] [address] [address] Usama Hobbs Urea nitrogen/Creatinine [Mass ratio] 10.2 mg/mg Normal [facility] Comment on above: Performed By: #### C MP, BNP #### [facility] [address] [address] [address] Usama Hobbs Basic metabolic 2000 panelon 11-16-2021 Anion gap [Moles/Vol] 16 mmol/L 9 - 18 mmol/L [facility] Calcium [Mass/Vol] 9.2 mg/dL 8.5 - 10.2 mg/dL [facility] Chloride [Moles/Vol] 102 mmol/L 97 - 105 mmol/L [facility] CO2 [Moles/Vol] 20 mmol/L Low 22 - 30 mmol/L [facility] Creatinine [Mass/Vol] 2.33 mg/dL High 0.73 - 1.22 mg/dL [facility] Estimated Glomerular Filtration Rate 30 mL/min/1.73m Low >=60 mL/min/1.73m [facility] Glucose [Mass/Vol] 78 mg/dL 74 - 99 mg/dL [facility] Potassium [Moles/Vol] 3.9 mmol/L 3.7 - 5.1 mmol/L [facility] Sodium [Moles/Vol] 138 mmol/L 136 - 144 mmol/L [facility] Urea nitrogen [Mass/Vol] 27 mg/dL High 9 - 24 mg/dL [facility] CBC W MANUAL DIFFon 11-17-19 22 ATYPICAL LYMPH # Normal [facility] Comment on above: Performed By: #### B BANKING PARALEGAL, CMP #### [facility] [address] [place] [address] Dr. Usama Hobbs ATYPICAL LYMPH % Normal [facility] Comment on above: Performed By: #### B BANKING PARALEGAL, CMP #### [facility] [address] [place] [address] Dr. Usama Hobbs BAND # 0.0 103/ul Normal 0.0-0.[address] [facility] Comment on above: Performed By: #### B BANKING PARALEGAL, CMP #### [facility] [address] [place] [address] Dr. Usama Hobbs BAND % 0 % Normal 0-[address] [facility] Comment on above: Performed By: #### B BANKING PARALEGAL, CMP #### [facility] [address] [place] [address] Dr. Usama Hobbs BASOM # 0.00 103/ul Normal 0.00-0.10 [facility] Comment on above: Performed By: #### B BANKING PARALEGAL, CMP #### [facility] [address] [place] [address] Dr. Usama Hobbs BASOM % 0.0 % Critically low 0.2-2.0 [facility] Comment on above: Performed By: #### B BANKING PARALEGAL, CMP #### [facility] [address] [place] [address] Dr. Usama Hobbs BLAST # Normal [facility] Comment on above: Performed By: #### B BANKING PARALEGAL, CMP #### [facility] [address] [place] [address] Dr. Usama Hobbs BLAST % Normal [facility] Comment on above: Performed By: #### B BANKING PARALEGAL, CMP #### [facility] [address] [place] [address] Dr. Usama Hobbs CORRECTED WBC Normal 4.0-11.0 [facility] Comment on above: Performed By: #### B BANKING PARALEGAL, CMP #### [facility] [address] [place] [address] Dr. Usama Hobbs EOS # 0.14 103/ul Normal 0.00-0.70 [facility] Comment on above: Performed By: #### B BANKING PARALEGAL, CMP #### [facility] [address] [place] [address] Dr. Usama Hobbs EOS% 8.0 % Critically high 0.9-7.0 [facility] Comment on above: Performed By: #### B BANKING PARALEGAL, CMP #### [facility] [address] [place] [address] Dr. Usama Hobbs HCT 28.7 % Critically low 42.0-54.[address] [facility] Comment on above: Performed By: #### B BANKING PARALEGAL, CMP #### [facility] [address] [place] [address] Dr. Usama Hobbs HGB 9.7 g/dl Critically low 14.0-18.[address] [facility] Comment on above: Performed By: #### B BANKING PARALEGAL, CMP #### [facility] [address] [place] [address] Dr. Usama Hobbs LYMPHM # 0.59 103/ul Critically low 1.20-3.80 [facility] Comment on above: Performed By: #### B BANKING PARALEGAL, CMP #### [facility] [address] [place] [address] Dr. Usama Hobbs LYMPHM% 33.0 % Normal 20.5-60.0 [facility] Comment on above: Performed By: #### B BANKING PARALEGAL, CMP #### [facility] [address] [place] [address] Dr. Usama Hobbs MCH 30.9 pg Normal 25.9-34.0 [facility] Comment on above: Performed By: #### B BANKING PARALEGAL, CMP #### [facility] [address] [place] [address] Dr. Usama Hobbs MCHC 33.8 g/dl Normal 29.9-35.[address] [facility] Comment on above: Performed By: #### B BANKING PARALEGAL, CMP #### [facility] [address] [place] [address] Dr. Usama Hobbs MCV 91.4 fL Normal 80.0-94.0 [facility] Comment on above: Performed By: #### B BANKING PARALEGAL, CMP #### [facility] [address] [place] [address] Dr. Usama Hobbs METAMYELOCYTE # 0.0 103/ul Normal The [facility] Comment on above: Performed By: #### B BANKING PARALEGAL, CMP #### [facility] [address] [place] [address] Dr. Usama Hobbs METAMYELOCYTE % 1 % Normal [facility] Comment on above: Performed By: #### B BANKING PARALEGAL, CMP #### [facility] [address] [place] [address] Dr. Usama Hobbs MONOM# 0.14 103/ul Critically low 0.30-0.80 [facility] Comment on above: Performed By: #### B BANKING PARALEGAL, CMP #### [facility] [address] [place] [address] Dr. Usama Hobbs MONOM% 8.0 % Normal 1.7-12.0 [facility] Comment on above: Performed By: #### B BANKING PARALEGAL, CMP #### [facility] [address] [place] [address] Dr. Usama Hobbs MPV 10.5 fL Normal 9.5-13.5 [facility] Comment on above: Performed By: #### B BANKING PARALEGAL, CMP #### [facility] [address] [place] [address] Dr. Usama Hobbs MYELOCYTE # 0.1 103/ul Normal The [facility] Comment on above: Performed By: #### B BANKING PARALEGAL, CMP #### [facility] [address] [place] [address] Dr. Usama Hobbs MYELOCYTE % 5 % Normal [facility] Comment on above: Performed By: #### B BANKING PARALEGAL, CMP #### [facility] [address] [place] [address] Dr. Usama Hobbs NRBC Normal [facility] Comment on above: Performed By: #### B BANKING PARALEGAL, CMP #### [facility] [address] [place] [address] Dr. Usama Hobbs PLT 163 103/ul Normal 150-450 [facility] Comment on above: Performed By: #### B BANKING PARALEGAL, CMP #### [facility] [address] [place] [address] Dr. Usama Hobbs RBC 3.14 106/ul Critically low 4.70-6.[address] [facility] Comment on above: Performed By: #### B BANKING PARALEGAL, CMP #### [facility] [address] [place] [address] Dr. Usama Hobbs RDW 12.4 % Normal 11.0-15.[address] [facility] Comment on above: Performed By: #### B BANKING PARALEGAL, CMP #### [facility] [address] [place] [address] Dr. Usama Hobbs SEG # 0.81 103/ul Critically low 1.40-6.[address] [facility] Comment on above: Performed By: #### B BANKING PARALEGAL, CMP #### [facility] [address] [place] [address] Dr. Usama Hobbs SEG % 45.0 % Normal 43.0-75.[address] [facility] Comment on above: Performed By: #### B BANKING PARALEGAL, CMP #### [facility] [address] [place], [place] [address] Dr. Usama Hobbs WBC 1.8 103/ul Critically low 4.0-11.0 [facility] Comment on above: Performed By: #### B BANKING PARALEGAL, CMP #### [facility] [address] [place], [place] [address] HEAD WO CONon 11-16-2021 CT HEAD WO CON EXAMINATION: CT HEAD WO CON HISTORY: HEADACHE COMPARISON: None. TECHNIQUE: CT examination of the head without IV contrast. Dose reduction techniques were achieved by using automated exposure control and/or adjustment of mA and/or kV according to patient size and/or use of iterative reconstruction technique. FINDINGS: No midline shift, mass effect or intracranial hemorrhage. Mild diffuse falcine calcifications. The mastoid air cells and visualized paranasal sinuses are clear. IMPRESSION: No acute intracranial process is identified. Electronically authenticated by: JOSUE SINGH Date: 2021-11-16 18:41 Normal [address] [facility]20 SARS-CoV-2 (COVID-19) RNA TONYA+probe Ql (Unsp spec) Not detected Normal NOT DETECTED The [facility] Comment on above: Result Comment: This test is not yet approved or cleared by the [place] FDA. When there are no FDA-approved or cleared tests available, and other criteria are met, FDA can make tests available under an emergency access mechanism called an Emergency Use Authorization (EUA). The EUA for this test is supported by the [employer] Engineer of Health and Human Service's (HHS's) declaration that circumstances exist to justify the emergency use of in vitro diagnostics for the detection and/or diagnosis of the virus that causes COVID-19. This EUA will remain in effect (meaning this test can be used) for the duration of the COVID-19 declaration justifying emergency of IVDs, unless it is terminated or revoked by FDA (after which the test may no longer be used). When diagnostic testing is negative, the possibility of a false negative should be considered in the context of a patient's recent exposures and the presence of clinical signs and symptoms consistent with SARS-CoV-2. Performed By: #### B BANKING PARALEGAL, CMP #### [facility] [address] [place] [address] Dr. Usama Hobbs PROF 14(COMP METB)on 022 Albumin [Mass/Vol] 3.3 g/dL Critically low 3.4-5.[address] [facility] Comment on above: Performed By: #### P SAD #### [facility] [address] [place] [address] Dr. Usama Hobbs Albumin/Globulin [Mass ratio] 0.9 {ratio} Normal [facility] Comment on above: Performed By: #### P SAD #### [facility] [address] [place] [address] Dr. Usama Hobbs ALP [Catalytic activity/Vol] 78 U/L Normal 46-116 [facility] Comment on above: Performed By: #### P SAD #### [facility] [address] [place] [address] Dr. Usama Hobbs ALT [Catalytic activity/Vol] 33 U/L Normal 16-63 [facility] Comment on above: Performed By: #### P SAD #### [facility] [address] [place] [address] Dr. Usama Hobbs Anion gap [Moles/Vol] 9.8 mmol/L Normal [facility] Comment on above: Performed By: #### P SAD #### [facility] [address] [place] [address] Dr. Usama Hobbs AST [Catalytic activity/Vol] 25 U/L Normal 15-37 [facility] Comment on above: Performed By: #### P SAD #### [facility] [address] [place] [address] Dr. Usama Hobbs Bilirubin [Mass/Vol] 0.4 mg/dL Normal 0.2-1.0 [facility] Comment on above: Performed By: #### P SAD #### [facility] [address] [place] [address] Dr. Usama Hobbs Calcium [Mass/Vol] 8.1 mg/dL Critically low 8.5-10.[address] [facility] Comment on above: Performed By: #### P SAD #### [facility] [address] [address] [address] Usama Hobbs Chloride [Moles/Vol] 102 mmol/L Normal 98-107 [facility] Comment on above: Performed By: #### P SAD #### [facility] [address] [address] [address] Usama Hobbs CO2 [Moles/Vol] 27.0 mmol/L Normal 21.0-32.0 [facility] Comment on above: Performed By: #### P SAD #### [facility] [address] [address] [address] Usama Hobbs Creatinine [Mass/Vol] 2.27 mg/dL Critically high 0.70-1.30 [facility] Comment on above: Performed By: #### P SAD #### [facility] [address] [address] [address] Usama Hobbs EGFR-AF PALAUAN 35 mL/min/1.73m2 Critically low >=60 [facility] Comment on above: Performed By: #### P SAD #### [facility] [address] [address] [address] Usama Hobbs EGFR-NON AF PALAUAN 29 mL/min/1.73m2 Critically low >=60 [facility] Comment on above: Performed By: #### P SAD #### [facility] [address] [address] [address] Usama Hobbs Globulin (S) [Mass/Vol] 3.5 g/dL Normal [facility] Comment on above: Performed By: #### P SAD #### [facility] [address] [address] [address] Usama Hobbs Glucose [Mass/Vol] 88 mg/dL Normal 74-106 [facility] Comment on above: Performed By: #### P SAD #### [facility] [address] [address] [address] Usama Hobbs Potassium [Moles/Vol] 3.8 mmol/L Normal 3.5-5.1 [facility] Comment on above: Performed By: #### P SAD #### [facility] [address] [address] [address] Usama Hobbs Protein [Mass/Vol] 6.8 g/dL Normal 6.1-8.[address] [facility] Comment on above: Performed By: #### P SAD #### [facility] [address] [address] [address] Usama Hobbs Sodium [Moles/Vol] 135 mmol/L Critically low 136-[address] [facility] Comment on above: Performed By: #### P SAD #### [facility] [address] [place] [address] Dr. Usama Hobbs Urea nitrogen [Mass/Vol] 26.0 mg/dL Critically high 7.0-18.0 [facility] Comment on above: Performed By: #### P SAD #### [facility] [address] [place] [address] Dr. Usama Hobbs Urea nitrogen/Creatinine [Mass ratio] 11.5 mg/mg Normal [facility] Comment on above: Performed By: #### P SAD #### [facility] [address] [place] [address] Dr. Usama Hobbs PROTIMEon 11-16-2021 INR Coag (PPP) [Relative time] 0.99 {INR} Normal [facility] Comment on above: Performed By: #### B BANKING PARALEGAL, CMP #### [facility] [address] [place] [address] Dr. Usama Hobbs INR GUIDELINES SEE BELOW Normal The [facility] Comment on above: Result Comment: LUCY RED INR: 2.0 - 3.0 CONDITIONS NOT LISTED BELOW 2.5 - 3.5 FOR PROSTHETIC HEART VALVE REPLACEMENT 2.5 - 3.5 RECURRENT THROMBOSIS Performed By: #### B BANKING PARALEGAL, CMP #### [facility] [address] [place] [address] Dr. Usama Hobbs PT Coag (PPP) [Time] 10.7 s Normal 9.0-11.6 [facility] Comment on above: Performed By: #### B BANKING PARALEGAL, CMP #### [facility] [address] [address] [address] Usama Hobbs PTTon 11-16-2021 aPTT Coag (Bld) [Time] 28.2 s Normal 22.3-36.[address] [facility] Comment on above: Performed By: #### B BANKING PARALEGAL, CMP #### [facility] [address] [place] [address] Dr. Usama Hobbs T4on 11-16-2021 T4 [Mass/Vol] 6.30 ug/dL Normal 4.50-12.10 [facility] Comment on above: Performed By: #### P SAD #### [facility] [address] [place] [address] Dr. Usama Hobbs TROPONIN, HIGH SENSITIVITYon 11-16-2021 HSTROP 24.0 pg/mL Normal 4.0-76.[address] [facility] Comment on above: Result Comment: CUT- OFF POINTS HAVE BEEN ESTABLISHED BASED ON THE FOURTH UNIVERSAL DEFINITIONS OF MYOCARDIAL INFARCTION. THE UPPER REFERENCE LIMIT (URL) OF TROPONIN, DEFINED THE 99TH PERCENTILE OF cTnI DISTRIBUTION IN A REFERENCE POPULATION, HAS BEEN CONFIRMED THE DECISION THRESHOLD FOR GA DIAGNOSIS. Performed By: #### B BANKING PARALEGAL, CMP #### [facility] [address] [place] [address] Dr. Usama Hobbs TSHon 11-16-2021 TSH 2.466 uIU/mL Normal 0.470-4.[address] [facility] Comment on above: Performed By: #### P SAD #### [facility] [address] [place] [address] Dr. Usama Hobbs TSH RANGE SEE BELOW Normal [facility] Comment on above: Result Comment: <0.3 4 UIU/ml HYPERTHYROID 0.34-5.60 UIU/ml EUTHYROID >5.60 UIU/ml HYPOTHYROID Performed By: #### P SAD #### [facility] [address] [place] [address] Dr. Usama Hobbs XR CHEST 1 Von 11-16-2021 XR CHEST 1 V EXAM: XR CHEST 1 V HISTORY: SHORTNESS OF BREATH EXAM: XR CHEST 1 V INDICATION: 66 years old Male SHORTNESS OF BREATH COMPARISON: March 29, 2021 FINDINGS: The cardiac silhouette is enlarged. Left perihilar hazy infiltration with small left-sided pleural effusion. There is no pneumothorax. There is no abnormal foreign body. IMPRESSION: Left perihilar infiltrates with small left-sided pleural effusion Electronically authenticated by: LEA ANTUNEZ Date: 2021-11-16 19:24 [address] [facility] CBC W Auto Differential pane l (Bld)on 11-05-2021 Abs Immature Gran <0.03 <0.10 k/uL [facility] Basophils (Bld) [#/Vol] 0.05 10*3/uL <0.11 k/uL [facility] Basophils/100 WBC (Bld) 1.0 % [facility] Differential cell count method Nom (Bld) Auto [facility] Eosinophils (Bld) [#/Vol] 0.39 10*3/uL <0.46 k/uL [facility] Eosinophils/100 WBC (Bld) 7.4 % [facility] Erythrocyte distribution width (RBC) [Ratio] 13.2 % 11.5 - 15.0 % [facility] Hematocrit (Bld) [Volume fraction] 39.1 % 39.0 - 51.0 % [facility] Hemoglobin (Bld) [Mass/Vol] 12.9 g/dL Low 13.0 - 17.0 g/dL [facility] Immature Gran % 0.2 % [facility] Lymphocytes (Bld) [#/Vol] 1.07 10*3/uL 1.00 - 4.00 k/uL [facility] Lymphocytes/100 WBC (Bld) 20.4 % [facility] MCH (RBC) [Entitic mass] 30.6 pg 26.0 - 34.0 pg [facility] MCHC (RBC) [Mass/Vol] 33.0 g/dL 30.5 - 36.0 g/dL [facility] MCV (RBC) [Entitic vol] 92.9 fL 80.0 - 100.0 fL [facility] Monocytes (Bld) [#/Vol] 0.57 10*3/uL <0.87 k/uL [facility] Monocytes/100 WBC (Bld) 10.9 % [facility] Neutrophils (Bld) [#/Vol] 3.15 10*3/uL 1.45 - 7.50 k/uL [facility] Neutrophils/100 WBC (Bld) 60.1 % [facility] Nucleated RBC (Bld) [#/Vol] 10*3/uL <0.01 k/uL [facility] Nucleated RBC/100 WBC (Bld) [Ratio] 0.0 /100 WBC [facility] Platelet mean volume (Bld) [Entitic vol] 9.9 fL 9.0 - 12.7 fL [facility] Platelets (Bld) [#/Vol] 305 10*3/uL 150 - 400 k/uL [facility] RBC (Bld) [#/Vol] 4.21 10*6/uL 4.20 - 6.00 m/uL [facility] WBC (Bld) [#/Vol] 5.24 10*3/uL 3.70 - 11.00 k/u L [facility] Comprehensive metabolic 2000 panelon 11-05-2021 Albumin [Mass/Vol] 4.3 g/dL 3.9 - 4.9 g/dL [facility] ALP [Catalytic activity/Vol] 73 U/L 38 - 113 U/L [facility] ALT [Catalytic activity/Vol] 16 U/L 10 - 54 U/L [facility] Anion gap [Moles/Vol] 12 mmol/L 9 - 18 mmol/L [facility] AST [Catalytic activity/Vol] 17 U/L 14 - 40 U/L [facility] Bilirubin [Mass/Vol] 0.5 mg/dL 0.2 - 1.3 mg/dL [facility] Calcium [Mass/Vol] 10.1 mg/dL 8.5 - 10.2 mg/dL [facility] Chloride [Moles/Vol] 105 mmol/L 97 - 105 mmol/L [facility] CO2 [Moles/Vol] 25 mmol/L 22 - 30 mmol/L [facility] Creatinine [Mass/Vol] 0.89 mg/dL 0.73 - 1.22 mg/dL [facility] Estimated Glomerular Filtration Rate 96 mL/min/1.73m >=60 mL/min/1.73m [facility] Glucose [Mass/Vol] 154 mg/dL High 74 - 99 mg/dL [facility] Potassium [Moles/Vol] 4.2 mmol/L 3.7 - 5.1 mmol/L [facility] Protein [Mass/Vol] 7.1 g/dL 6.3 - 8.0 g/dL [facility] Sodium [Moles/Vol] 142 mmol/L 136 - 144 mmol/L [facility] Urea nitrogen [Mass/Vol] 9 mg/dL 9 - 24 mg/dL [facility] MRI BRAIN WO/W IVCONon 10-31 [facility] XR CHEST 2V FRONTAL/LATon [facility] NM PET/CT WHOLE BODY INITIAL on 05-28-2021 [facility] Cardiovascular Lab Reporton 02-24-2019 Cardiovascular Lab Report [facility] Patient Name: Riccardo , [facility] Pedro Maloney MR #: [id number] Department of Physician: [facility] Alma Chaney M.D. Division of Service Date: 02/23/2019 Cardiology Birthdate: 1955 Adult Cardiovascular Room #: [id number] [address] [place] [address] Cardiovascular Laboratory Report INDICATION: The patient is a 64-year-old man with peripheral vascular disease. He has lifestyle limiting claudication that failed conservative management. His ABIs were significantly reduced bilaterally, indicated possible iliac inflow disease. He was brought today for angiography and possible intervention. PROCEDURES: 1. Limited right common femoral angiography. 2. Aortoiliac angiography with runoff. 3. Bilateral lower extremity angiography. 4. Bilateral iliac angiography. 5. Successful balloon dilatation and stenting of 80% complex ulcerated stenosis in the right common iliac artery, reduced to 0% by deployment of an Omnilink 8 x 39 mm stent. 6. Successful balloon dilatation and stenting of 90% stenosis in the right external iliac artery, reduced to 0% by deployment of a 7 x 80 mm Zilver stent. METHOD: Procedure was explained to the patient with risks and benefits. He signed informed consent. He was brought to lab aid in a fasting state. The right groin area was prepped and draped in usual fashion. Using micropuncture technique, the right common femoral artery was accessed. The inner cannula was advanced and limited right femoral angiography was performed followed by upsizing to a 6-Uzbek x 5 cm sheath. Right lower extremity angiography was performed down to the level of the foot. An angled Glidewire was advanced into the abdominal aorta and a 5-Uzbek Uni-Flush catheter was advanced. Aortoiliac angiography was performed using digital subtraction angiography and power injection of contrast. Using the angled Glidewire, the aortoiliac bifurcation was crossed and the catheter was exchanged to a 5-Uzbek straight tapered diagnostic catheter, which was used to perform left lower extremity angiography down to the level of the foot. Pullback across the left iliac artery system was performed with measurement of pressure. Left iliac angiography was performed for both external, internal, and common iliac arteries. The catheter was retracted. Right common and external iliac artery angiography was performed using angulated views. A Magic Torque wire was advanced into the distal abdominal aorta. The access sheath was exchanged to a 6 x 30 cm flexor sheath. Advance LP 6 x 40 mm balloon was then advanced and used to perform balloon dilatation in the right common iliac artery at up to 10 atmospheres. The balloon was brought down to the right external iliac artery and used to perform balloon dilatation in the external iliac artery at up to 6 atmospheres. Following that, angiography was performed. An Omnilink 8 x 39 mm balloon expandable stent was advanced and deployed in the right common iliac artery and repeated inflations inside the stent were performed up to 14 atmospheres. Angiography was performed. A Zilver 7 x 80 mm self expanding stent was then advanced and deployed in the right external iliac artery overlapping with the distal segment of the right common iliac artery stent. The stent was post dilated using the 6 mm x 40 mm Advance LP balloon inflated at high pressures. The 8 mm stent balloon was then advanced back and used to treat the area of the overlap of the 2 stents at high pressure. Final angiography was performed. The procedure was concluded after measurement of final pressures. The access sheath was exchanged to a 6-Uzbek x 11 cm sheath. The patient was loaded with 300 mg of Plavix at the end of the procedure as he was maintained previously on aspirin and Plavix. He tolerated the procedure well. Note that the procedure was performed under anticoagulation with intravenous heparin and therapeutic ACT confirmed during the procedure and additional heparin given as needed. TOTAL FLUORO TIME: 26.37 minutes. TOTAL AIR KERMA: 393 mGy. TOTAL CONTRAST VOLUME: 150 mL. HEMODYNAMICS: At baseline, right external iliac artery 97/65, mean 80. AO 123/65, mean 87. Left femoral artery 117/71, mean 89. Post intervention: Right external iliac artery 157/79, mean 109. Aortoiliac angiography: This showed evidence of mild diffuse disease in the distal abdominal aorta. 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 The aorta bifurcates into 2 common iliac arteries. There is 80% complex ulcerated stenosis in the right common iliac artery, that was reduced to 0% by balloon angioplasty and stenting. The right external iliac artery has 90% complex diffuse stenosis that was reduced to 0% by balloon angioplasty and stenting. The right internal iliac artery has 70% ostial stenosis. The left common iliac artery has 20% stenosis. The left internal iliac artery has 40% ostial stenosis and the left external iliac artery has 50% tubular stenosis with no significant pressure drop across the left iliac artery system. Right lower extremity angiography: This showed patent right common femoral artery with patent profunda femoris. There is 80% ostial right superficial femoral artery stenosis followed by another 50% stenosis proximally and a 70% stenosis at the adductor canal. The popliteal artery has mild disease. The anterior tibial artery is 100% occluded. The TP trunk has 70% stenosis. The peroneal artery is occluded. The posterior tibial artery is patent down to the level of the foot. Left lower extremity angiography: This showed a patent left common femoral artery with a patent profunda femoris and an occluded left superficial femoral artery at its ostium. It reconstitutes distally at the level of the adductor canal. The popliteal artery has mild disease. The anterior tibial artery has 100% proximal occlusion. The posterior tibial and peroneal arteries appear to be patent. SUMMARY OF THE FINDINGS: 1. 80% ulcerated complex stenosis in the right common iliac artery, reduced to 0% by balloon angioplasty and stent. 2. 90% stenosis in the right external iliac artery, reduced to 0% by balloon angioplasty and stent. 3. 70% stenosis at the ostium of the right external iliac artery. 4. Nonobstructive disease in the left common and external iliac arteries by pressure measurement. 5. 80% ostial, 50% proximal and 70% distal right SFA stenosis. 6. 100% occlusion of the left SFA with filling of the distal vessel via collateral circulation from the left profunda femoris. 7. Occluded anterior tibial artery bilaterally. 8. Occluded right peroneal artery. 9. 70% stenosis in the right tibioperoneal trunk. RECOMMENDATIONS: 1. Aspirin and statin therapy for life. 2. Plavix therapy for a minimum of 6 months after stenting of the iliac arteries, preferably longer. 3. The patient will be evaluated in Cardiology Clinic for further revascularization of his peripheral vascular disease. Electronically Signed by: Nicko Chaney M.D. 03/19/2019 01:46 A Nicko Chaney M.D. Date Dict: 02/23/2019/03:45 P/Nicko Chaney M.D. Date Trans: 02/24/2019 05:47 A/boris [id number] cc: Christina Azul M.D. 1 [facility] [id number] [facility] Vital Signs Date Time Vital Sign Value Performing Clinician Facility 02-07-2024 19:28-0400 Diastolic blood pressure 75 mm[Hg] [facility] 02-07-2024 19:28-0400 Heart rate 76 /min [facility] 02-07-2024 19:28-0400 Respiratory rate 18 /min [facility] 02-07-2024 19:28-0400 SaO2% (BldA) [Mass fraction] 97 % [facility] 02-07-2024 19:28-0400 Systolic blood pressure 159 mm[Hg] [facility] 02-07-2024 15:51-0400 Body height 170.18 cm [facility] 02-07-2024 15:51-0400 Body temperature 98 [degF] [facility] 02-07-2024 15:51-0400 Body weight 52.3 kg [facility] 02-03-2024 11:32-0400 Body height 168.3 cm Mindy Pandya PA-C Work Phone: [facility] 02-03-2024 11:32-0400 Body mass index (BMI) [Ratio] 18.43 kg/m2 Mindy LOPEZC Work Phone: [facility] 02-03-2024 11:32-0400 Body temperature 97.3 [degF] Mumtaz PA-C Work Phone: [facility] 02-03-2024 11:32-0400 Body weight 52.2 kg Mumtaz PA-C Work Phone: [facility] 02-03-2024 11:32-0400 Diastolic blood pressure 74 mm[Hg] Mumtaz PA-C Work Phone: [facility] 02-03-2024 11:32-0400 Heart rate 92 /min Mumtaz PA-C Work Phone: [facility] 02-03-2024 11:32-0400 Respiratory rate 18 /min Mumtaz PA-C Work Phone: [facility] 02-03-2024 11:32-0400 SaO2% (BldA) [Mass fraction] 99 % Mumtaz PA-C Work Phone: [facility] 02-03-2024 11:32-0400 Systolic blood pressure 122 mm[Hg] Mumtaz PA-C Work Phone: [facility] 12-23-2023 14:53-0400 Body height 168.3 cm Pito Grigsby MD Work Phone: [facility] 12-23-2023 14:53-0400 Body mass index (BMI) [Ratio] 19.49 kg/m2 Pito Grigsby MD Work Phone: [facility] 12-23-2023 14:53-0400 Body temperature 97.39 [degF] Pito Grigsby MD Work Phone: [facility] 12-23-2023 14:53-0400 Body weight 55.2 kg Pito Grigsby MD Work Phone: [facility] 12-23-2023 14:53-0400 Diastolic blood pressure 74 mm[Hg] Pito Grigsby MD Work Phone: [facility] 12-23-2023 14:53-0400 Heart rate 71 /min Pito Grigsby MD Work Phone: [facility] 12-23-2023 14:53-0400 Respiratory rate 16 /min Pito Grigsby MD Work Phone: [facility] 12-23-2023 14:53-0400 SaO2% (BldA) [Mass fraction] 99 % Pito Grigsby MD Work Phone: [facility] 12-23-2023 14:53-0400 Systolic blood pressure 137 mm[Hg] Pito Grigsby MD Work Phone: [facility] 12-22-2023 12:38-0400 Body mass index (BMI) [Ratio] 18.29 kg/m2 JC Limon MD Work Phone: [facility] 12-22-2023 12:38-0400 Body temperature 97.59 [degF] JC Limon MD Work Phone: [facility] 12-22-2023 12:38-0400 Body weight 51.8 kg JC Limon MD Work Phone: [facility] 12-22-2023 12:38-0400 Diastolic blood pressure 83 mm[Hg] JC Limon MD Work Phone: [facility] 12-22-2023 12:38-0400 Heart rate 116 /min JC Limon MD Work Phone: [facility] 12-22-2023 12:38-0400 Respiratory rate 18 /min JC Limon MD Work Phone: [facility] 12-22-2023 12:38-0400 SaO2% (BldA) [Mass fraction] 99 % JC Limon MD Work Phone: [facility] 12-22-2023 12:38-0400 Systolic blood pressure 124 mm[Hg] JC Limon MD Work Phone: [facility] 12-16-2023 15:45-0400 Body mass index (BMI) [Ratio] 19.14 kg/m2 JC Limon MD Work Phone: [facility] 12-16-2023 15:45-0400 Body temperature 97.3 [degF] JC Limon MD Work Phone: [facility] 12-16-2023 15:45-0400 Body weight 54.2 kg JC Limon MD Work Phone: [facility] 12-16-2023 15:45-0400 Diastolic blood pressure 86 mm[Hg] JC Limon MD Work Phone: [facility] 12-16-2023 15:45-0400 Heart rate 66 /min JC Limon MD Work Phone: [facility] 12-16-2023 15:45-0400 Respiratory rate 16 /min JC Limon MD Work Phone: [facility] 12-16-2023 15:45-0400 SaO2% (BldA) [Mass fraction] 100 % JC Limon MD Work Phone: [facility] 12-16-2023 15:45-0400 Systolic blood pressure 161 mm[Hg] JC Limon MD Work Phone: [facility] 12-10-2023 14:40-0400 Body mass index (BMI) [Ratio] 19.21 kg/m2 JC Limon MD Work Phone: [facility] 12-10-2023 14:40-0400 Body temperature 96.69 [degF] JC Limon MD Work Phone: [facility] 12-10-2023 14:40-0400 Body weight 54.4 kg JC Limon MD Work Phone: [facility] 12-10-2023 14:40-0400 Diastolic blood pressure 68 mm[Hg] JC Limon MD Work Phone: [facility] 12-10-2023 14:40-0400 Heart rate 68 /min JC Limon MD Work Phone: [facility] 12-10-2023 14:40-0400 Respiratory rate 16 /min JC Limon MD Work Phone: [facility] 12-10-2023 14:40-0400 SaO2% (BldA) [Mass fraction] 97 % JC Limon MD Work Phone: [facility] 12-10-2023 14:40-0400 Systolic blood pressure 125 mm[Hg] JC Limon MD Work Phone: [facility] 12-02-2023 10:20-0400 Body height 168.3 cm Pito Grigsby MD Work Phone: [facility] 12-02-2023 10:20-0400 Body mass index (BMI) [Ratio] 18.71 kg/m2 Pito Grigsby MD Work Phone: [facility] 12-02-2023 10:20-0400 Body temperature 96.69 [degF] Pito Grigsby MD Work Phone: [facility] 12-02-2023 10:20-0400 Body weight 53 kg Pito Grigsby MD Work Phone: [facility] 12-02-2023 10:20-0400 Diastolic blood pressure 83 mm[Hg] Pito Grigsby MD Work Phone: [facility] 12-02-2023 10:20-0400 Heart rate 55 /min Pito Grigsby MD Work Phone: [facility] 12-02-2023 10:20-0400 Respiratory rate 16 /min Pito Grigsby MD Work Phone: [facility] 12-02-2023 10:20-0400 SaO2% (BldA) [Mass fraction] 93 % Pito Grigsby MD Work Phone: [facility] 12-02-2023 10:20-0400 Systolic blood pressure 133 mm[Hg] Pito Grigsby MD Work Phone: [facility] 11-21-2023 10:05-0400 Body height 168.3 cm Maryjo Bundridge [employer] HEL[employer].RN DERMATOLOGY Work Phone: [facility] 11-21-2023 10:05-0400 Body mass index (BMI) [Ratio] 19.74 kg/m2 Maryjo Bundridge [employer]ATION MECHANIC HELPER.RN DERMATOLOGY Work Phone: [facility] 11-21-2023 10:05-0400 Body temperature 97.7 [degF] Maryjo Bundridge STATION MECHANIC HELPER.RN DERMATOLOGY Work Phone: [facility] 11-21-2023 10:05-0400 Body weight 55.9 kg Maryjo Bundridge STATION MECHANIC HELPER.RN DERMATOLOGY Work Phone: [facility] 11-21-2023 10:05-0400 Diastolic blood pressure 91 mm[Hg] Maryjo Bundridge STATION MECHANIC HELPER.RN DERMATOLOGY Work Phone: [facility] 11-21-2023 10:05-0400 Heart rate 95 /min Maryjo Bundridge STATION MECHANIC HELPER.RN DERMATOLOGY Work Phone: [facility] 11-21-2023 10:05-0400 Respiratory rate 16 /min Maryjo Bundridge STATION MECHANIC HELPER.RN DERMATOLOGY Work Phone: [facility] 11-21-2023 10:05-0400 SaO2% (BldA) [Mass fraction] 98 % Maryjo Bundridge STATION MECHANIC HELPER.RN DERMATOLOGY Work Phone: [facility] 11-21-2023 10:05-0400 Systolic blood pressure 154 mm[Hg] Maryjo Bundridge STATION MECHANIC HELPER.RN DERMATOLOGY Work Phone: [facility] 11-04-2023 09:43-0400 Body height 168.3 cm Pito Grigsby MD Work Phone: [facility] 11-04-2023 09:43-0400 Body temperature 97 [degF] Pito Grigsby MD Work Phone: [facility] 11-04-2023 09:43-0400 Body weight 56.3 kg Pito Grigsby MD Work Phone: [facility] 11-04-2023 09:43-0400 Diastolic blood pressure 84 mm[Hg] Pito Grigsby MD Work Phone: [facility] 11-04-2023 09:43-0400 Heart rate 101 /min Pito Grigsby MD Work Phone: [facility] 11-04-2023 09:43-0400 Respiratory rate 16 /min Pito Grigsby MD Work Phone: [facility] 11-04-2023 09:43-0400 SaO2% (BldA) [Mass fraction] 96 % Pito Grigsby MD Work Phone: [facility] 11-04-2023 09:43-0400 Systolic blood pressure 147 mm[Hg] Pito Grigsby MD Work Phone: [facility] 10-20-2023 10:06-0400 Body height 168.3 cm Pito Grigsby MD Work Phone: [facility] 10-20-2023 10:06-0400 Body temperature 97.3 [degF] Pito Grigsby MD Work Phone: [facility] 10-20-2023 10:06-0400 Body weight 57.5 kg Pito Grigsby MD Work Phone: [facility] 10-20-2023 10:06-0400 Diastolic blood pressure 72 mm[Hg] Pito Grigsby MD Work Phone: [facility] 10-20-2023 10:06-0400 Heart rate 82 /min Pito Grigsby MD Work Phone: [facility] 10-20-2023 10:06-0400 Respiratory rate 18 /min Pito Grigsby MD Work Phone: [facility] 10-20-2023 10:06-0400 SaO2% (BldA) [Mass fraction] 98 % Pito Grigsby MD Work Phone: [facility] 10-20-2023 10:06-0400 Systolic blood pressure 155 mm[Hg] Pito Grigsby MD Work Phone: [facility] 09-22-2023 09:56-0500 Body height 168.3 cm Pito Grigsby MD Work Phone: [facility] 09-22-2023 09:56-0500 Body temperature 97.11 [degF] Pito Grigsby MD Work Phone: [facility] 09-22-2023 09:56-0500 Body weight 60.2 kg Pito Grigsby MD Work Phone: [facility] 09-22-2023 09:56-0500 Diastolic blood pressure 78 mm[Hg] Pito Grigsby MD Work Phone: [facility] 09-22-2023 09:56-0500 Heart rate 91 /min Pito Grigsby MD Work Phone: [facility] 09-22-2023 09:56-0500 Respiratory rate 18 /min Pito Grigsby MD Work Phone: [facility] 09-22-2023 09:56-0500 SaO2% (BldA) [Mass fraction] 99 % Pito Grigsby MD Work Phone: [facility] 09-22-2023 09:56-0500 Systolic blood pressure 142 mm[Hg] Pito Grigsby MD Work Phone: [facility] 08-25-2023 14:55-0500 Body height 168.3 cm Pito Grigsby MD Work Phone: [facility] 08-25-2023 14:55-0500 Body temperature 97.59 [degF] Pito Grigsby MD Work Phone: [facility] 08-25-2023 14:55-0500 Body weight 61.2 kg Pito Grigsby MD Work Phone: [facility] 08-25-2023 14:55-0500 Diastolic blood pressure 70 mm[Hg] Pito Grigsby MD Work Phone: [facility] 08-25-2023 14:55-0500 Heart rate 67 /min Pito Grigsby MD Work Phone: [facility] 08-25-2023 14:55-0500 Respiratory rate 18 /min Pito Grigsby MD Work Phone: [facility] 08-25-2023 14:55-0500 Systolic blood pressure 136 mm[Hg] Pito Grigsby MD Work Phone: [facility] 06-30-2023 15:09-0500 Body height 168.3 cm Pito Grigsby MD Work Phone: [facility] 06-30-2023 15:09-0500 Body temperature 97.11 [degF] Pito Grigsby MD Work Phone: [facility] 06-30-2023 15:09-0500 Body weight 63.05 kg Pito Grigsby MD Work Phone: [facility] 06-30-2023 15:09-0500 Diastolic blood pressure 66 mm[Hg] Pito Grigsby MD Work Phone: [facility] 06-30-2023 15:09-0500 Heart rate 84 /min Pito Grigsby MD Work Phone: [facility] 06-30-2023 15:09-0500 Respiratory rate 16 /min Pito Grigsby MD Work Phone: [facility] 06-30-2023 15:09-0500 Systolic blood pressure 119 mm[Hg] Pito Grigsby MD Work Phone: [facility] 06-13-2023 09:34-0500 Body temperature 97 [degF] Maryjo Bundridge STATION MECHANIC HELPER.RN DERMATOLOGY Work Phone: [facility] 06-13-2023 09:34-0500 Body weight 63.41 kg Maryjo Bundridge STATION MECHANIC HELPER.RN DERMATOLOGY Work Phone: [facility] 06-13-2023 09:34-0500 Diastolic blood pressure 78 mm[Hg] Maryjo Bundridge STATION MECHANIC HELPER.RN DERMATOLOGY Work Phone: [facility] 06-13-2023 09:34-0500 Heart rate 84 /min Maryjo Bundridge STATION MECHANIC HELPER.RN DERMATOLOGY Work Phone: [facility] 06-13-2023 09:34-0500 Respiratory rate 18 /min Maryjo Bundriddewey STATION MECHANIC HELPER.RN DERMATOLOGY Work Phone: [facility] 06-13-2023 09:34-0500 SaO2% (BldA) [Mass fraction] 98 % Maryjo Bundridge STATION MECHANIC HELPER.RN DERMATOLOGY Work Phone: [facility] 06-13-2023 09:34-0500 Systolic blood pressure 139 mm[Hg] Maryjo Bundriddewey STATION MECHANIC HELPER.RN DERMATOLOGY Work Phone: [facility] 06-02-2023 14:34-0500 Body height 168.3 cm Brent Miller STATION MECHANIC HELPER.RN DERMATOLOGY Work Phone: [facility] 06-02-2023 14:34-0500 Body temperature 97.59 [degF] Brent Miller STATION MECHANIC HELPER.RN DERMATOLOGY Work Phone: [facility] 06-02-2023 14:34-0500 Body weight 63.78 kg Brent Miller STATION MECHANIC HELPER.RN DERMATOLOGY Work Phone: [facility] 06-02-2023 14:34-0500 Diastolic blood pressure 101 mm[Hg] Brent Miller STATION MECHANIC HELPER.RN DERMATOLOGY Work Phone: [facility] 06-02-2023 14:34-0500 Heart rate 98 /min Brent Miller STATION MECHANIC HELPER.RN DERMATOLOGY Work Phone: [facility] 06-02-2023 14:34-0500 Respiratory rate 16 /min Brent Miller STATION MECHANIC HELPER.RN DERMATOLOGY Work Phone: [facility] 06-02-2023 14:34-0500 SaO2% (BldA) [Mass fraction] 97 % Brent Miller STATION MECHANIC HELPER.RN DERMATOLOGY Work Phone: [facility] 06-02-2023 14:34-0500 Systolic blood pressure 160 mm[Hg] Brent Miller STATION MECHANIC HELPER.RN DERMATOLOGY Work Phone: [facility] 05-30-2023 11:11-0500 Body temperature 97.3 [degF] JC Limon MD Work Phone: [facility] 05-30-2023 11:11-0500 Body weight 64.32 kg JC Limon MD Work Phone: [facility] 05-30-2023 11:11-0500 Diastolic blood pressure 114 mm[Hg] JC Limon MD Work Phone: [facility] 05-30-2023 11:11-0500 Heart rate 70 /min JC Limon MD Work Phone: [facility] 05-30-2023 11:11-0500 Respiratory rate 16 /min JC Limon MD Work Phone: [facility] 05-30-2023 11:11-0500 SaO2% (BldA) [Mass fraction] 100 % JC Limon MD Work Phone: [facility] 05-30-2023 11:11-0500 Systolic blood pressure 172 mm[Hg] JC Limon MD Work Phone: [facility] 05-16-2023 08:51-0400 Body height 168.3 cm Maryjo Bundridge STATION MECHANIC HELPER.RN DERMATOLOGY Work Phone: [facility] 05-16-2023 08:51-0400 Body temperature 97 [degF] Maryjo Bundridge STATION MECHANIC HELPER.RN DERMATOLOGY Work Phone: [facility] 05-16-2023 08:51-0400 Body weight 63.14 kg Maryjo Bundridge STATION MECHANIC HELPER.RN DERMATOLOGY Work Phone: [facility] 05-16-2023 08:51-0400 Diastolic blood pressure 85 mm[Hg] Maryjo Bundridge STATION MECHANIC HELPER.RN DERMATOLOGY Work Phone: [facility] 05-16-2023 08:51-0400 Heart rate 85 /min Maryjo Bundridge STATION MECHANIC HELPER.RN DERMATOLOGY Work Phone: [facility] 05-16-2023 08:51-0400 Respiratory rate 16 /min Maryjo Bundridge STATION MECHANIC HELPER.RN DERMATOLOGY Work Phone: [facility] 05-16-2023 08:51-0400 SaO2% (BldA) [Mass fraction] 98 % Maryjo Fish STATION MECHANIC HELPER.RN DERMATOLOGY Work Phone: [facility] 05-16-2023 08:51-0400 Systolic blood pressure 150 mm[Hg] Maryjo Fish STATION MECHANIC HELPER.RN DERMATOLOGY Work Phone: [facility] 04-01-2023 12:53-0400 Diastolic blood pressure 101 mm[Hg] Brent Miller STATION MECHANIC HELPER.RN DERMATOLOGY Work Phone: [facility] 04-01-2023 12:53-0400 Heart rate 105 /min Brent Miller STATION MECHANIC HELPER.RN DERMATOLOGY Work Phone: [facility] 04-01-2023 12:53-0400 Systolic blood pressure 191 mm[Hg] Brent Miller STATION MECHANIC HELPER.RN DERMATOLOGY Work Phone: [facility] 04-01-2023 12:50-0400 Body height 168.3 cm Brent Miller STATION MECHANIC HELPER.RN DERMATOLOGY Work Phone: [facility] 04-01-2023 12:50-0400 Body temperature 97.81 [degF] Brent Miller STATION MECHANIC HELPER.RN DERMATOLOGY Work Phone: [facility] 04-01-2023 12:50-0400 Body weight 62.96 kg Brent Miller STATION MECHANIC HELPER.RN DERMATOLOGY Work Phone: [facility] 04-01-2023 12:50-0400 Respiratory rate 18 /min Brent Miller STATION MECHANIC HELPER.RN DERMATOLOGY Work Phone: [facility] 04-01-2023 12:50-0400 SaO2% (BldA) [Mass fraction] 98 % Brent Miller STATION MECHANIC HELPER.RN DERMATOLOGY Work Phone: [facility] 03-11-2023 13:40-0400 Body height 168.3 cm Pito Grigsby MD Work Phone: [facility] 03-11-2023 13:40-0400 Body temperature 97.59 [degF] Pito Grigsby MD Work Phone: [facility] 03-11-2023 13:40-0400 Body weight 62.14 kg Pito Grigsby MD Work Phone: [facility] 03-11-2023 13:40-0400 Diastolic blood pressure 74 mm[Hg] Pito Grigsby MD Work Phone: [facility] 03-11-2023 13:40-0400 Heart rate 75 /min Pito Grigsby MD Work Phone: [facility] 03-11-2023 13:40-0400 Respiratory rate 16 /min Pito Grigsby MD Work Phone: [facility] 03-11-2023 13:40-0400 SaO2% (BldA) [Mass fraction] 99 % Ptio Grigsby MD Work Phone: [facility] 03-11-2023 13:40-0400 Systolic blood pressure 158 mm[Hg] Pito Grigsby MD Work Phone: [facility] 02-18-2023 16:06-0400 Diastolic blood pressure 97 mm[Hg] Chair Vanessa Work Phone: [facility] 02-18-2023 16:06-0400 Systolic blood pressure 183 mm[Hg] Chair Calaveras Work Phone: [facility] 02-18-2023 14:38-0400 Body height 168.3 cm Pito Grigsby MD Work Phone: [facility] 02-18-2023 14:38-0400 Body temperature 97.9 [degF] Pito Grigsby MD Work Phone: [facility] 02-18-2023 14:38-0400 Body weight 60.24 kg Pito Grigsby MD Work Phone: [facility] 02-18-2023 14:38-0400 Diastolic blood pressure 103 mm[Hg] Pito Grigsby MD Work Phone: [facility] 02-18-2023 14:38-0400 Heart rate 134 /min Pito Grigsby MD Work Phone: [facility] 02-18-2023 14:38-0400 Respiratory rate 16 /min Pito Grigsby MD Work Phone: [facility] 02-18-2023 14:38-0400 SaO2% (BldA) [Mass fraction] 98 % Pito Grigsby MD Work Phone: [facility] 02-18-2023 14:38-0400 Systolic blood pressure 161 mm[Hg] Pito Grigsby MD Work Phone: [facility] 01-03-2023 21:46-0400 Diastolic blood pressure 101 mm[Hg] MD Christina Azul Work Phone: [facility] 01-03-2023 21:46-0400 Heart rate 71 /min MD Christina Azul Work Phone: [facility] 01-03-2023 21:46-0400 Respiratory rate 18 /min MD Christina Azul Work Phone: [facility] 01-03-2023 21:46-0400 SaO2% (BldA) [Mass fraction] 98 % MD Christina Azul Work Phone: [facility] 01-03-2023 21:46-0400 Systolic blood pressure 173 mm[Hg] MD Christina Azul Work Phone: [facility] 01-03-2023 17:10-0400 Body height 170.18 cm MD Christina Azul Work Phone: [facility] 01-03-2023 17:10-0400 Body temperature 98.6 [degF] MD Christina Azul Work Phone: [facility] 01-03-2023 17:10-0400 Body weight 58.75 kg MD Christina Azul Work Phone: [facility] 12-17-2022 08:47-0400 Body height 168.3 cm Pito Grigsby MD Work Phone: [facility] 12-17-2022 08:47-0400 Body temperature 98.6 [degF] Pito Grigsby MD Work Phone: [facility] 12-17-2022 08:47-0400 Body weight 59.42 kg Pito Grigsby MD Work Phone: [facility] 12-17-2022 08:47-0400 Diastolic blood pressure 70 mm[Hg] Pito Grigsby MD Work Phone: [facility] 12-17-2022 08:47-0400 Heart rate 106 /min Pito Grigsby MD Work Phone: [facility] 12-17-2022 08:47-0400 Respiratory rate 16 /min Pito Grigsby MD Work Phone: [facility] 12-17-2022 08:47-0400 SaO2% (BldA) [Mass fraction] 96 % Pito Grigsby MD Work Phone: [facility] 12-17-2022 08:47-0400 Systolic blood pressure 122 mm[Hg] Pito Grigsby MD Work Phone: [facility] 11-25-2022 09:28-0400 Body height 168.3 cm Brent Miller APRN.RN DERMATOLOGY Work Phone: [facility] 11-25-2022 09:28-0400 Body temperature 97.5 [degF] Brent Miller STATION MECHANIC HELPER.RN DERMATOLOGY Work Phone: [facility] 11-25-2022 09:28-0400 Body weight 59.15 kg Brent Miller APRN.RN DERMATOLOGY Work Phone: [facility] 11-25-2022 09:28-0400 Diastolic blood pressure 69 mm[Hg] Brent Miller STATION MECHANIC HELPER.RN DERMATOLOGY Work Phone: [facility] 11-25-2022 09:28-0400 Heart rate 97 /min Brent Miller APRN.RN DERMATOLOGY Work Phone: [facility] 11-25-2022 09:28-0400 Respiratory rate 16 /min Brent Miller APRN.RN DERMATOLOGY Work Phone: [facility] 11-25-2022 09:28-0400 SaO2% (BldA) [Mass fraction] 99 % Brent Miller STATION MECHANIC HELPER.RN DERMATOLOGY Work Phone: [facility] 11-25-2022 09:28-0400 Systolic blood pressure 108 mm[Hg] Brent Miller APRN.RN DERMATOLOGY Work Phone: [facility] 11-20-2022 10:33-0400 Body temperature 97.7 [degF] JC Limon MD Work Phone: [facility] 11-20-2022 10:33-0400 Body weight 59.24 kg JC Limon MD Work Phone: [facility] 11-20-2022 10:33-0400 Diastolic blood pressure 73 mm[Hg] JC Limon MD Work Phone: [facility] 11-20-2022 10:33-0400 Heart rate 87 /min JC Limon MD Work Phone: [facility] 11-20-2022 10:33-0400 Respiratory rate 18 /min JC Limon MD Work Phone: [facility] 11-20-2022 10:33-0400 SaO2% (BldA) [Mass fraction] 97 % JC Limon MD Work Phone: [facility] 11-20-2022 10:33-0400 Systolic blood pressure 137 mm[Hg] JC Limon MD Work Phone: [facility] 11-18-2022 13:30-0400 Body height 168.3 cm Pito Grigsby MD Work Phone: [facility] 11-18-2022 13:30-0400 Body temperature 97.2 [degF] Pito Grigsby MD Work Phone: [facility] 11-18-2022 13:30-0400 Body weight 60.33 kg Pito Grigsby MD Work Phone: [facility] 11-18-2022 13:30-0400 Diastolic blood pressure 70 mm[Hg] Pito Grigsby MD Work Phone: [facility] 11-18-2022 13:30-0400 Heart rate 84 /min Pito Grigsby MD Work Phone: [facility] 11-18-2022 13:30-0400 Respiratory rate 16 /min Pito Grigsby MD Work Phone: [facility] 11-18-2022 13:30-0400 SaO2% (BldA) [Mass fraction] 100 % Pito Grigsby MD Work Phone: [facility] 11-18-2022 13:30-0400 Systolic blood pressure 124 mm[Hg] Pito Grigsby MD Work Phone: [facility] 11-11-2022 13:19-0400 Body height 168.3 cm Pito Grigsby MD Work Phone: [facility] 11-11-2022 13:19-0400 Body temperature 96.6 [degF] Pito Grigsby MD Work Phone: [facility] 11-11-2022 13:19-0400 Body weight 61.2 kg Pito Grigsby MD Work Phone: [facility] 11-11-2022 13:19-0400 Diastolic blood pressure 84 mm[Hg] Pito Grigsby MD Work Phone: [facility] 11-11-2022 13:19-0400 Heart rate 72 /min Pito Grigsby MD Work Phone: [facility] 11-11-2022 13:19-0400 Respiratory rate 18 /min Pito Grigsby MD Work Phone: [facility] 11-11-2022 13:19-0400 SaO2% (BldA) [Mass fraction] 96 % Pito Grigsby MD Work Phone: [facility] 11-11-2022 13:19-0400 Systolic blood pressure 162 mm[Hg] Pito Grigsby MD Work Phone: [facility] 11-04-2022 11:19-0400 Body temperature 97.7 [degF] JC Limon MD Work Phone: [facility] 11-04-2022 11:19-0400 Body weight 60.06 kg JC Limon MD Work Phone: [facility] 11-04-2022 11:19-0400 Diastolic blood pressure 84 mm[Hg] JC Limon MD Work Phone: [facility] 11-04-2022 11:19-0400 Heart rate 87 /min JC Limon MD Work Phone: [facility] 11-04-2022 11:19-0400 Respiratory rate 16 /min JC Limon MD Work Phone: [facility] 11-04-2022 11:19-0400 SaO2% (BldA) [Mass fraction] 95 % JC Limon MD Work Phone: [facility] 11-04-2022 11:19-0400 Systolic blood pressure 159 mm[Hg] JC Limon MD Work Phone: [facility] 10-31-2022 14:57-0400 Body height 168.3 cm Pito Grigsby MD Work Phone: [facility] 10-31-2022 14:57-0400 Body temperature 97.2 [degF] Pito Grigsby MD Work Phone: [facility] 10-31-2022 14:57-0400 Body weight 59.97 kg Pito Grigsby MD Work Phone: [facility] 10-31-2022 14:57-0400 Diastolic blood pressure 65 mm[Hg] Pito Grigsby MD Work Phone: [facility] 10-31-2022 14:57-0400 Heart rate 90 /min Pito Grigsby MD Work Phone: [facility] 10-31-2022 14:57-0400 Respiratory rate 16 /min Pito Grigsby MD Work Phone: [facility] 10-31-2022 14:57-0400 SaO2% (BldA) [Mass fraction] 100 % Pito Grigsby MD Work Phone: [facility] 10-31-2022 14:57-0400 Systolic blood pressure 114 mm[Hg] Pito Grigsby MD Work Phone: [facility] 10-21-2022 14:08-0400 Body height 168.3 cm Vanessa Work Phone: [facility] 10-21-2022 13:42-0400 Body height 169.5 cm JC Limon MD Work Phone: [facility] 10-21-2022 13:35-0400 Body height 169.7 cm Pito Grigsby MD Work Phone: [facility] 10-21-2022 13:35-0400 Body temperature 97.9 [degF] Pito Grigsby MD Work Phone: [facility] 10-21-2022 13:35-0400 Body weight 61.24 kg Pito Grigsby MD Work Phone: [facility] 10-21-2022 13:35-0400 Diastolic blood pressure 79 mm[Hg] Pito Grigsby MD Work Phone: [facility] 10-21-2022 13:35-0400 Heart rate 92 /min Pito Grigsby MD Work Phone: [facility] 10-21-2022 13:35-0400 Respiratory rate 16 /min Pito Grigsby MD Work Phone: [facility] 10-21-2022 13:35-0400 SaO2% (BldA) [Mass fraction] 97 % Pito Grigsby MD Work Phone: [facility] 10-21-2022 13:35-0400 Systolic blood pressure 129 mm[Hg] Pito Grigsby MD Work Phone: [facility] 10-15-2022 09:06-0400 Body height 167.6 cm Pito Grigsby MD Work Phone: [facility] 10-15-2022 09:06-0400 Body temperature 97 [degF] Pito Grigsby MD Work Phone: [facility] 10-15-2022 09:06-0400 Body weight 60.6 kg Pito Grigsby MD Work Phone: [facility] 10-15-2022 09:06-0400 Diastolic blood pressure 89 mm[Hg] Pito Grigsby MD Work Phone: [facility] 10-15-2022 09:06-0400 Heart rate 68 /min Pito Grigsby MD Work Phone: [facility] 10-15-2022 09:06-0400 Respiratory rate 16 /min Pito Grigsby MD Work Phone: [facility] 10-15-2022 09:06-0400 SaO2% (BldA) [Mass fraction] 94 % Pito Grigsby MD Work Phone: [facility] 10-15-2022 09:06-0400 Systolic blood pressure 158 mm[Hg] Pito Grigsby MD Work Phone: [facility] 09-23-2022 10:19-0500 Body height 167.6 cm Pito Grigsby MD Work Phone: [facility] 09-23-2022 10:19-0500 Body temperature 97.59 [degF] Pito Grigsby MD Work Phone: [facility] 09-23-2022 10:19-0500 Body weight 60.69 kg Pito Grigsby MD Work Phone: [facility] 09-23-2022 10:19-0500 Diastolic blood pressure 71 mm[Hg] Pito Grigsby MD Work Phone: [facility] 09-23-2022 10:19-0500 Heart rate 85 /min Pito Grigsby MD Work Phone: [facility] 09-23-2022 10:19-0500 Respiratory rate 16 /min Pito Grigsby MD Work Phone: [facility] 09-23-2022 10:19-0500 SaO2% (BldA) [Mass fraction] 96 % Pito Grigsby MD Work Phone: [facility] 09-23-2022 10:19-0500 Systolic blood pressure 113 mm[Hg] Pito Grigsby MD Work Phone: [facility] 08-20-2022 09:52-0500 Body height 167.6 cm Pito Grigsby MD Work Phone: [facility] 08-20-2022 09:52-0500 Body temperature 98.8 [degF] Pito Grigsby MD Work Phone: [facility] 08-20-2022 09:52-0500 Body weight 62.14 kg Pito Grigsby MD Work Phone: [facility] 08-20-2022 09:52-0500 Diastolic blood pressure 64 mm[Hg] Pito Grigsby MD Work Phone: [facility] 08-20-2022 09:52-0500 Heart rate 99 /min Pito Grigsby MD Work Phone: [facility] 08-20-2022 09:52-0500 Respiratory rate 16 /min Pito Grigsby MD Work Phone: [facility] 08-20-2022 09:52-0500 SaO2% (BldA) [Mass fraction] 96 % Pito Grigsby MD Work Phone: [facility] 08-20-2022 09:52-0500 Systolic blood pressure 122 mm[Hg] Pito Grigsby MD Work Phone: [facility] 06-25-2022 10:01-0500 Body height 167.6 cm Brent Miller APRN.RN DERMATOLOGY Work Phone: [facility] 06-25-2022 10:01-0500 Body temperature 97.9 [degF] Brent Miller STATION MECHANIC HELPER.RN DERMATOLOGY Work Phone: [facility] 06-25-2022 10:01-0500 Body weight 59.97 kg Brent Miller STATION MECHANIC HELPER.RN DERMATOLOGY Work Phone: [facility] 06-25-2022 10:01-0500 Diastolic blood pressure 74 mm[Hg] Brent Miller STATION MECHANIC HELPER.RN DERMATOLOGY Work Phone: [facility] 06-25-2022 10:01-0500 Heart rate 101 /min Brent Miller STATION MECHANIC HELPER.RN DERMATOLOGY Work Phone: [facility] 06-25-2022 10:01-0500 Respiratory rate 16 /min Brent Miller STATION MECHANIC HELPER.RN DERMATOLOGY Work Phone: [facility] 06-25-2022 10:01-0500 SaO2% (BldA) [Mass fraction] 94 % Brent Miller STATION MECHANIC HELPER.RN DERMATOLOGY Work Phone: [facility] 06-25-2022 10:01-0500 Systolic blood pressure 139 mm[Hg] Brent Miller STATION MECHANIC HELPER.RN DERMATOLOGY Work Phone: [facility] 04-22-2022 11:27-0400 Body temperature 96.91 [degF] JC Limon MD Work Phone: [facility] 04-22-2022 11:27-0400 Body weight 60.33 kg JC Limon MD Work Phone: [facility] 04-22-2022 11:27-0400 Diastolic blood pressure 90 mm[Hg] JC Limon MD Work Phone: [facility] 04-22-2022 11:27-0400 Heart rate 103 /min JC Limon MD Work Phone: [facility] 04-22-2022 11:27-0400 Respiratory rate 18 /min JC Limon MD Work Phone: [facility] 04-22-2022 11:27-0400 SaO2% (BldA) [Mass fraction] 100 % JC Limon MD Work Phone: [facility] 04-22-2022 11:27-0400 Systolic blood pressure 169 mm[Hg] JC Limon MD Work Phone: [facility] 04-15-2022 09:12-0400 Body temperature 96.69 [degF] JC Limon MD Work Phone: [facility] 04-15-2022 09:12-0400 Body weight 58.97 kg JC Limon MD Work Phone: [facility] 04-15-2022 09:12-0400 Diastolic blood pressure 87 mm[Hg] JC Limon MD Work Phone: [facility] 04-15-2022 09:12-0400 Heart rate 90 /min JC Limon MD Work Phone: [facility] 04-15-2022 09:12-0400 Respiratory rate 18 /min JC Limon MD Work Phone: [facility] 04-15-2022 09:12-0400 SaO2% (BldA) [Mass fraction] 100 % JC Limon MD Work Phone: [facility] 04-15-2022 09:12-0400 Systolic blood pressure 143 mm[Hg] JC Limon MD Work Phone: [facility] 04-08-2022 09:15-0400 Body temperature 97.39 [degF] JC Limon MD Work Phone: [facility] 04-08-2022 09:15-0400 Body weight 54.88 kg JC Limon MD Work Phone: [facility] 04-08-2022 09:15-0400 Diastolic blood pressure 79 mm[Hg] JC Limon MD Work Phone: [facility] 04-08-2022 09:15-0400 Heart rate 101 /min JC Limon MD Work Phone: [facility] 04-08-2022 09:15-0400 Respiratory rate 16 /min JC Limon MD Work Phone: [facility] 04-08-2022 09:15-0400 SaO2% (BldA) [Mass fraction] 100 % JC Limon MD Work Phone: [facility] 04-08-2022 09:15-0400 Systolic blood pressure 159 mm[Hg] JC Limon MD Work Phone: [facility] 04-01-2022 09:48-0400 Body temperature 97.39 [degF] JC Limon MD Work Phone: [facility] 04-01-2022 09:48-0400 Body weight 58.97 kg JC Limon MD Work Phone: [facility] 04-01-2022 09:48-0400 Heart rate 98 /min JC Limon MD Work Phone: [facility] 04-01-2022 09:48-0400 SaO2% (BldA) [Mass fraction] 100 % JC Limon MD Work Phone: [facility] 03-26-2022 08:50-0400 Body temperature 97.5 [degF] JC Limon MD Work Phone: [facility] 03-26-2022 08:50-0400 Body weight 58.97 kg JC Limon MD Work Phone: [facility] 03-26-2022 08:50-0400 Diastolic blood pressure 62 mm[Hg] JC Limon MD Work Phone: [facility] 03-26-2022 08:50-0400 Heart rate 92 /min JC Limon MD Work Phone: [facility] 03-26-2022 08:50-0400 Respiratory rate 16 /min JC Limon MD Work Phone: [facility] 03-26-2022 08:50-0400 SaO2% (BldA) [Mass fraction] 99 % JC Limon MD Work Phone: [facility] 03-26-2022 08:50-0400 Systolic blood pressure 114 mm[Hg] JC Limon MD Work Phone: [facility] 03-19-2022 09:20-0400 Body height 167.6 cm Brent Miller APRN.CNP Work Phone: [facility] 03-19-2022 09:20-0400 Body temperature 97.59 [degF] Brent Miller APRN.RN DERMATOLOGY Work Phone: [facility] 03-19-2022 09:20-0400 Body weight 59.51 kg Brent Miller APRN.RN DERMATOLOGY Work Phone: [facility] 03-19-2022 09:20-0400 Diastolic blood pressure 78 mm[Hg] Brent Miller APRN.RN DERMATOLOGY Work Phone: [facility] 03-19-2022 09:20-0400 Heart rate 90 /min Brent Miller APRN.RN DERMATOLOGY Work Phone: [facility] 03-19-2022 09:20-0400 Respiratory rate 16 /min Brent Miller APRN.RN DERMATOLOGY Work Phone: [facility] 03-19-2022 09:20-0400 SaO2% (BldA) [Mass fraction] 97 % Brent Miller APRN.RN DERMATOLOGY Work Phone: [facility] 03-19-2022 09:20-0400 Systolic blood pressure 117 mm[Hg] Brent Miller APRN.RN DERMATOLOGY Work Phone: [facility] 02-20-2022 14:20-0400 Body height 167.6 cm Brent Miller APRN.RN DERMATOLOGY Work Phone: [facility] 02-20-2022 14:20-0400 Body temperature 97.2 [degF] Brent Miller APRN.RN DERMATOLOGY Work Phone: [facility] 02-20-2022 14:20-0400 Body weight 59.88 kg Brent Miller APRN.RN DERMATOLOGY Work Phone: [facility] 02-20-2022 14:20-0400 Diastolic blood pressure 60 mm[Hg] Brent Miller APRN.RN DERMATOLOGY Work Phone: [facility] 02-20-2022 14:20-0400 Heart rate 108 /min Brent Miller APRN.RN DERMATOLOGY Work Phone: [facility] 02-20-2022 14:20-0400 Respiratory rate 16 /min Brent Miller APRN.RN DERMATOLOGY Work Phone: [facility] 02-20-2022 14:20-0400 SaO2% (BldA) [Mass fraction] 98 % Brent Miller APRN.RN DERMATOLOGY Work Phone: [facility] 02-20-2022 14:20-0400 Systolic blood pressure 95 mm[Hg] Brent Miller STATION MECHANIC HELPER.RN DERMATOLOGY Work Phone: [facility] 02-07-2022 15:33-0400 Body height 167.6 cm Brent Miller APRN.RN DERMATOLOGY Work Phone: [facility] 02-07-2022 15:33-0400 Body temperature 97.59 [degF] Brent Miller APRN.RN DERMATOLOGY Work Phone: [facility] 02-07-2022 15:33-0400 Body weight 59.42 kg Brent Miller APRN.RN DERMATOLOGY Work Phone: [facility] 02-07-2022 15:33-0400 Diastolic blood pressure 59 mm[Hg] Brent Miller APRN.RN DERMATOLOGY Work Phone: [facility] 02-07-2022 15:33-0400 Heart rate 110 /min Brent Miller APRN.RN DERMATOLOGY Work Phone: [facility] 02-07-2022 15:33-0400 Respiratory rate 16 /min Brent Miller APRN.RN DERMATOLOGY Work Phone: [facility] 02-07-2022 15:33-0400 SaO2% (BldA) [Mass fraction] 98 % Brent Miller APRN.RN DERMATOLOGY Work Phone: [facility] 02-07-2022 15:33-0400 Systolic blood pressure 110 mm[Hg] Brent Miller APRN.RN DERMATOLOGY Work Phone: [facility] 01-30-2022 15:11-0400 Body temperature 96.69 [degF] JC Limon MD Work Phone: [facility] 01-30-2022 15:11-0400 Body weight 60.33 kg JC Limon MD Work Phone: [facility] 01-30-2022 15:11-0400 Diastolic blood pressure 67 mm[Hg] JC Limon MD Work Phone: [facility] 01-30-2022 15:11-0400 Heart rate 91 /min JC Limon MD Work Phone: [facility] 01-30-2022 15:11-0400 SaO2% (BldA) [Mass fraction] 100 % JC Limon MD Work Phone: [facility] 01-30-2022 15:11-0400 Systolic blood pressure 106 mm[Hg] JC Limon MD Work Phone: [facility] 01-29-2022 08:42-0400 Body height 167.6 cm Verito Whelan MD Work Phone: [facility] 01-29-2022 08:42-0400 Body temperature 97.39 [degF] Verito Whelan MD Work Phone: [facility] 01-29-2022 08:42-0400 Body weight 58.8 kg Verito Whelan MD Work Phone: [facility] 01-29-2022 08:42-0400 Diastolic blood pressure 64 mm[Hg] Verito Whelan MD Work Phone: [facility] 01-29-2022 08:42-0400 Heart rate 60 /min Verito Whelan MD Work Phone: [facility] 01-29-2022 08:42-0400 SaO2% (BldA) [Mass fraction] 94 % Verito Whelan MD Work Phone: [facility] 01-29-2022 08:42-0400 Systolic blood pressure 139 mm[Hg] Verito Whelan MD Work Phone: [facility] 01-22-2022 13:39-0400 Body height 168.8 cm Pito Grigsby MD Work Phone: [facility] 01-22-2022 13:39-0400 Body temperature 98.01 [degF] Pito Grigsby MD Work Phone: [facility] 01-22-2022 13:39-0400 Body weight 59.78 kg Pito Grigsby MD Work Phone: [facility] 01-22-2022 13:39-0400 Diastolic blood pressure 61 mm[Hg] Pito Grigsby MD Work Phone: [facility] 01-22-2022 13:39-0400 Heart rate 90 /min Pito Grigsby MD Work Phone: [facility] 01-22-2022 13:39-0400 Respiratory rate 18 /min Pito Grigsby MD Work Phone: [facility] 01-22-2022 13:39-0400 SaO2% (BldA) [Mass fraction] 100 % Pito Grigsby MD Work Phone: [facility] 01-22-2022 13:39-0400 Systolic blood pressure 110 mm[Hg] Pito Grigsby MD Work Phone: [facility] 01-14-2022 08:21-0400 Body height 168.8 cm Pito Grigsby MD Work Phone: [facility] 01-14-2022 08:21-0400 Body temperature 97.2 [degF] Pito Grigsby MD Work Phone: [facility] 01-14-2022 08:21-0400 Body weight 60.24 kg Pito Grigsby MD Work Phone: [facility] 01-14-2022 08:21-0400 Diastolic blood pressure 65 mm[Hg] Pito Grigsby MD Work Phone: [facility] 01-14-2022 08:21-0400 Heart rate 85 /min Pito Grigsby MD Work Phone: [facility] 01-14-2022 08:21-0400 Respiratory rate 16 /min Pito Grigsby MD Work Phone: [facility] 01-14-2022 08:21-0400 SaO2% (BldA) [Mass fraction] 99 % Pito Grigsby MD Work Phone: [facility] 01-14-2022 08:21-0400 Systolic blood pressure 123 mm[Hg] Pito Grigsby MD Work Phone: [facility] 12-24-2021 09:26-0400 Body height 168.8 cm Pito Grigsby MD Work Phone: [facility] 12-24-2021 09:26-0400 Body temperature 97.81 [degF] Pito Grigsby MD Work Phone: [facility] 12-24-2021 09:26-0400 Body weight 61.05 kg Pito Grigsby MD Work Phone: [facility] 12-24-2021 09:26-0400 Diastolic blood pressure 70 mm[Hg] Pito Grigsby MD Work Phone: [facility] 12-24-2021 09:26-0400 Heart rate 81 /min Pito Grigsby MD Work Phone: [facility] 12-24-2021 09:26-0400 Respiratory rate 16 /min Pito Grigsby MD Work Phone: [facility] 12-24-2021 09:26-0400 SaO2% (BldA) [Mass fraction] 100 % Pito Grigsby MD Work Phone: [facility] 12-24-2021 09:26-0400 Systolic blood pressure 120 mm[Hg] Pito Grigsby MD Work Phone: [facility] 12-03-2021 09:29-0400 Body height 168.8 cm Mindy Pandya PA-C Work Phone: [facility] 12-03-2021 09:29-0400 Body temperature 97.81 [degF] Mindy Pandya PA-C Work Phone: [facility] 12-03-2021 09:29-0400 Body weight 59.69 kg Mumtaz PA-C Work Phone: [facility] 12-03-2021 09:29-0400 Diastolic blood pressure 63 mm[Hg] Mumtaz PA-C Work Phone: [facility] 12-03-2021 09:29-0400 Heart rate 92 /min Mumtaz PA-C Work Phone: [facility] 12-03-2021 09:29-0400 Respiratory rate 16 /min Mumtaz PA-C Work Phone: [facility] 12-03-2021 09:29-0400 SaO2% (BldA) [Mass fraction] 98 % Mumtaz PA-C Work Phone: [facility] 12-03-2021 09:29-0400 Systolic blood pressure 125 mm[Hg] Mnidy Mumtaz PA-C Work Phone: [facility] 11-30-2021 10:29-0400 Body height 168.8 cm Brent Miller APRN.RN DERMATOLOGY Work Phone: [facility] 11-30-2021 10:29-0400 Body temperature 97.3 [degF] Brent Miller APRN.RN DERMATOLOGY Work Phone: [facility] 11-30-2021 10:29-0400 Body weight 58.24 kg Brent Miller APRN.RN DERMATOLOGY Work Phone: [facility] 11-30-2021 10:29-0400 Diastolic blood pressure 55 mm[Hg] Brent Miller APRN.RN DERMATOLOGY Work Phone: [facility] 11-30-2021 10:29-0400 Heart rate 90 /min Brent Miller APRN.RN DERMATOLOGY Work Phone: [facility] 11-30-2021 10:29-0400 Respiratory rate 16 /min Brent Miller APRN.RN DERMATOLOGY Work Phone: [facility] 11-30-2021 10:29-0400 SaO2% (BldA) [Mass fraction] 98 % Brent Miller STATION MECHANIC HELPER.RN DERMATOLOGY Work Phone: [facility] 11-30-2021 10:29-0400 Systolic blood pressure 95 mm[Hg] Brent Miller APRN.RN DERMATOLOGY Work Phone: [facility] 11-26-2021 09:24-0400 Body height 168.8 cm Pito Grigsby MD Work Phone: [facility] 11-26-2021 09:24-0400 Body temperature 97.5 [degF] Pito Grigsby MD Work Phone: [facility] 11-26-2021 09:24-0400 Body weight 59.06 kg Pito Grigsby MD Work Phone: [facility] 11-26-2021 09:24-0400 Diastolic blood pressure 65 mm[Hg] Pito Grigsby MD Work Phone: [facility] 11-26-2021 09:24-0400 Heart rate 75 /min Pito Grigsby MD Work Phone: [facility] 11-26-2021 09:24-0400 Respiratory rate 16 /min Pito Grigsby MD Work Phone: [facility] 11-26-2021 09:24-0400 SaO2% (BldA) [Mass fraction] 100 % Pito Grigsby MD Work Phone: [facility] 11-26-2021 09:24-0400 Systolic blood pressure 111 mm[Hg] Pito Grigsby MD Work Phone: [facility] 11-21-2021 15:10-0400 Body temperature 98.6 [degF] Chair Vanessa Work Phone: [facility] 11-21-2021 15:10-0400 Diastolic blood pressure 65 mm[Hg] Chair Vanessa Work Phone: [facility] 11-21-2021 15:10-0400 Heart rate 78 /min Chair Vanessa Work Phone: [facility] 11-21-2021 15:10-0400 Respiratory rate 16 /min Chair Vanessa Work Phone: [facility] 11-21-2021 15:10-0400 SaO2% (BldA) [Mass fraction] 99 % Chair Vanessa Work Phone: [facility] 11-21-2021 15:10-0400 Systolic blood pressure 119 mm[Hg] Chair Vanessa Work Phone: [facility] 11-19-2021 10:41-0400 Diastolic blood pressure 71 mm[Hg] Chair Calaveras Work Phone: [facility] 11-19-2021 10:41-0400 Systolic blood pressure 123 mm[Hg] Chair Vanessa Work Phone: [facility] 11-19-2021 09:20-0400 Body temperature 98.4 [degF] Chair Calaveras Work Phone: [facility] 11-19-2021 09:20-0400 Heart rate 90 /min Chair Calaveras Work Phone: [facility] 11-19-2021 09:20-0400 Respiratory rate 18 /min Chair Vanessa Work Phone: [facility] 11-19-2021 09:20-0400 SaO2% (BldA) [Mass fraction] 99 % Chair Calaveras Work Phone: [facility] 11-16-2021 10:13-0400 Diastolic blood pressure 95 mm[Hg] Chair Calaveras Work Phone: [facility] 11-16-2021 10:13-0400 Systolic blood pressure 170 mm[Hg] Chair Calaveras Work Phone: [facility] 11-16-2021 09:02-0400 Body temperature 97.39 [degF] Chair Calaveras Work Phone: [facility] 11-16-2021 09:02-0400 Heart rate 63 /min Chair Vanessa Work Phone: [facility] 11-16-2021 09:02-0400 Respiratory rate 18 /min Chair Vanessa Work Phone: [facility] 11-16-2021 09:02-0400 SaO2% (BldA) [Mass fraction] 99 % Chair Calaveras Work Phone: [facility] 11-15-2021 14:36-0400 Body temperature 97 [degF] Chair Vanessa Work Phone: [facility] 11-15-2021 14:36-0400 Diastolic blood pressure 74 mm[Hg] Chair Vanessa Work Phone: [facility] 11-15-2021 14:36-0400 Heart rate 65 /min Chair Calaveras Work Phone: [facility] 11-15-2021 14:36-0400 Respiratory rate 18 /min Chair Calaveras Work Phone: [facility] 11-15-2021 14:36-0400 SaO2% (BldA) [Mass fraction] 99 % Chair Vanessa Work Phone: [facility] 11-15-2021 14:36-0400 Systolic blood pressure 137 mm[Hg] Chair Calaveras Work Phone: [facility] 11-13-2021 11:36-0400 Diastolic blood pressure 69 mm[Hg] Chair Calaveras Work Phone: [facility] 11-13-2021 11:36-0400 Heart rate 70 /min Chair Calaveras Work Phone: [facility] 11-13-2021 11:36-0400 Respiratory rate 18 /min Chair Calaveras Work Phone: [facility] 11-13-2021 11:36-0400 SaO2% (BldA) [Mass fraction] 99 % Chair Calaveras Work Phone: [facility] 11-13-2021 11:36-0400 Systolic blood pressure 116 mm[Hg] Chair Vanessa Work Phone: [facility] 11-05-2021 08:52-0400 Body height 168.8 cm Brent Miller APRN.RN DERMATOLOGY Work Phone: [facility] 11-05-2021 08:52-0400 Body temperature 97.3 [degF] Brent Miller APRN.RN DERMATOLOGY Work Phone: [facility] 11-05-2021 08:52-0400 Body weight 58.6 kg Brent Miller APRN.RN DERMATOLOGY Work Phone: [facility] 11-05-2021 08:52-0400 Diastolic blood pressure 66 mm[Hg] Brent Miller APRN.RN DERMATOLOGY Work Phone: [facility] 11-05-2021 08:52-0400 Heart rate 93 /min Brent Miller APRN.RN DERMATOLOGY Work Phone: [facility] 11-05-2021 08:52-0400 Respiratory rate 16 /min Brent Miller APRN.RN DERMATOLOGY Work Phone: [facility] 11-05-2021 08:52-0400 SaO2% (BldA) [Mass fraction] 98 % Brent Miller APRN.RN DERMATOLOGY Work Phone: [facility] 11-05-2021 08:52-0400 Systolic blood pressure 115 mm[Hg] Brent Miller APRN.RN DERMATOLOGY Work Phone: [facility] 10-24-2021 14:18-0400 Body temperature 97.39 [degF] JC Limon MD Work Phone: [facility] 10-24-2021 14:18-0400 Body weight 58.51 kg JC Limon MD Work Phone: [facility] 10-24-2021 14:18-0400 Diastolic blood pressure 67 mm[Hg] JC Limon MD Work Phone: [facility] 10-24-2021 14:18-0400 Heart rate 101 /min JC Limon MD Work Phone: [facility] 10-24-2021 14:18-0400 Respiratory rate 16 /min JC Limon MD Work Phone: [facility] 10-24-2021 14:18-0400 SaO2% (BldA) [Mass fraction] 98 % JC Limon MD Work Phone: [facility] 10-24-2021 14:18-0400 Systolic blood pressure 111 mm[Hg] JC Limon MD Work Phone: [facility] 10-19-2021 09:58-0400 Body height 168.8 cm Renetta Ponce MD Work Phone: [facility] 10-19-2021 09:58-0400 Body temperature 97.59 [degF] Renetta Ponce MD Work Phone: [facility] 10-19-2021 09:58-0400 Body weight 58.33 kg Renetta Ponce MD Work Phone: [facility] 10-19-2021 09:58-0400 Diastolic blood pressure 72 mm[Hg] Renetta Ponce MD Work Phone: [facility] 10-19-2021 09:58-0400 Heart rate 98 /min Renetta Ponce MD Work Phone: [facility] 10-19-2021 09:58-0400 Respiratory rate 20 /min Renetta Ponce MD Work Phone: [facility] 10-19-2021 09:58-0400 SaO2% (BldA) [Mass fraction] 100 % Renetta Ponce MD Work Phone: [facility] 10-19-2021 09:58-0400 Systolic blood pressure 127 mm[Hg] Renetta Ponce MD Work Phone: [facility] 10-11-2021 15:44-0400 Body height 170.2 cm Aracelis Carrillo APRN.CNP Work Phone: [facility] 10-11-2021 15:44-0400 Body temperature 98.71 [degF] Aracelis Carrillo APRN.RN DERMATOLOGY Work Phone: [facility] 10-11-2021 15:44-0400 Body weight 58.97 kg Aracelis Carrillo APRN.RN DERMATOLOGY Work Phone: [facility] 10-11-2021 15:44-0400 Diastolic blood pressure 58 mm[Hg] Aracelis Carrillo APRN.RN DERMATOLOGY Work Phone: [facility] 10-11-2021 15:44-0400 Heart rate 85 /min Aracelis Carrillo APRN.RN DERMATOLOGY Work Phone: [facility] 10-11-2021 15:44-0400 SaO2% (BldA) [Mass fraction] 98 % Aracelis Carrillo APRN.RN DERMATOLOGY Work Phone: [facility] 10-11-2021 15:44-0400 Systolic blood pressure 99 mm[Hg] Aracelis Carrillo APRN.RN DERMATOLOGY Work Phone: [facility] Encounters Encounter Date Encounter Type Care Provider Facility Start: 02-18-2024 Telephone encounter Denita rushing RN Work Phone: Hematology/Oncology Comment on above: Care Coordination (P t Update) Start: 02-16-2024 Telephone encounter Bernadine Rodriguez RN Work Phone: Hematology/Oncology Comment on above: Care Coordination (H ome oxygen) Start: 02-10-2024 Telephone encounter Denita rushing RN Work Phone: Hematology/Oncology Comment on above: Care Coordination (S hortness of Breath) Start: 02-07-2024 End: 02-07-2024 Emergency department patient visit [facility] Work Phone: Start: 02-06-2024 End: 02-06-2024 ambulatory Enrique Esposiot Facility:[facility] Start: 02-04-2024 Refill Pito Grigsby MD Work Phone: [facility] Comment on above: Refill Request Start: 02-03-2024 End: 02-03-2024 Office outpatient visit 25 minutes M Mumtaz LOPEZC Work Phone: Hematology/Oncology Comment on above: 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 ) Start: 01-12-2024 End: 01-12-2024 ambulatory [facility] Facility:[facility] Start: 01-09-2024 Telephone encounter Bernadine Rodriguez RN Work Phone: Hematology/Oncology Comment on above: Care Coordination (i nsomnia) Start: 01-08-2024 End: 01-08-2024 ambulatory [facility] Facility:[facility] Start: 12-26-2023 Telephone encounter Julieth Tapia [facility] Services Comment on above: Care Coordination (P ain ) Insurance Authorizat ion Insurance Authorizat ion (Oxy IR 10 mg) Start: 12-24-2023 Patient encounter procedure Jyoti Limon MD Work Phone: Radiation Oncology Start: 12-24-2023 Radiation Oncology Note G Vik Limon MD Work Phone: Radiation Oncology Comment on above: Completion Note Start: 12-24-2023 End: 12-24-2023 Refill Denita Rai RN Work Phone: Hematology/Oncology Comment on above: Refill Request (Synt hroid) Start: 12-23-2023 End: 12-23-2023 Patient encounter procedure Pito Grigsby MD Work Phone: Hematology/Oncology Start: 12-23-2023 End: 12-23-2023 ambulatory Pito Grigsby MD Work Phone: Hematology/Oncology Comment on above: 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); Tonsillar mass; Hypothyroidism due to medication; Cancer associated pain Start: 12-23-2023 End: 12-23-2023 ambulatory ENRIQUE ESPOSITO Facility:[facility] Start: 12-22-2023 End: 12-22-2023 Patient encounter procedure Jyoti Limon MD Work Phone: Radiation Oncology Comment on above: Malignant neoplasm o f upper lobe of left lung (HCC) (Primary Dx) Start: 12-22-2023 End: 12-22-2023 ambulatory Jyoti LIMON Facility:[facility] Start: 12-19-2023 End: 12-19-2023 ambulatory Jyoti LIMON Facility:[facility] Start: 12-18-2023 End: 12-18-2023 ambulatory Jyoti LIMON Facility:[facility] Start: 12-17-2023 End: 12-17-2023 ambulatory Jyoti LIMON Facility:[facility] Start: 12-16-2023 End: 12-16-2023 ambulatory Jyoti LIMON Facility:[facility] Start: 12-16-2023 End: 12-16-2023 Patient encounter procedure Jyoti Limon MD Work Phone: Radiation Oncology Comment on above: Malignant neoplasm o f upper lobe of left lung (HCC) (Primary Dx) Start: 12-16-2023 Telephone encounter Maryjo Fish APRN.CNP Work Phone: Radiation Oncology Comment on above: Patient Update; Medi cation Problem Start: 12-12-2023 End: 12-12-2023 ambulatory Jyoti LIMON Facility:[facility] Start: 12-11-2023 End: 12-11-2023 ambulatory Jyoti LIMON Facility:[facility] Start: 12-10-2023 End: 12-10-2023 ambulatory Jyoti LIMON Facility:[facility] Start: 12-10-2023 End: 12-10-2023 Patient encounter procedure Jyoti Deon Limon MD Work Phone: Radiation Oncology Comment on above: Malignant neoplasm o f upper lobe of left lung (HCC) (Primary Dx) Start: 12-03-2023 End: 12-04-2023 Patient encounter procedure Jyoti Limon MD Work Phone: Radiation Oncology Comment on above: Malignant neoplasm o f upper lobe of left lung (HCC) (Primary Dx) Start: 12-03-2023 Radiation Oncology Note Jyoti Vik Limon MD Work Phone: Radiation Oncology Comment on above: Simulation Note Treatment Planning Start: 12-03-2023 Telephone encounter Maryjo Fish APRN.CNP Work Phone: Radiation Oncology Comment on above: Patient Update Start: 12-03-2023 End: 12-04-2023 ambulatory Jyoti LIMON Facility:[facility] Start: 12-02-2023 End: 12-02-2023 ambulatory Chair [address] Work Phone: Hematology/Oncology Comment on above: Malignant neoplasm o f upper lobe of left lung (HCC) (Primary Dx) 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); Tonsillar mass; Hypothyroidism due to medication; Cancer associated pain; Anxiety Start: 12-02-2023 End: 12-02-2023 Patient encounter procedure Pito Grigsby MD Work Phone: Hematology/Oncology Comment on above: Malignant neoplasm o f upper lobe of left lung (HCC) (Primary Dx) Start: 11-25-2023 Chart abstracting Olga Lidia gallagher RN Work Phone: Hematology/Oncology Comment on above: Research (IRB [id number] Informed Consent) Start: 11-25-2023 End: 11-26-2023 ambulatory Chair [address] Work Phone: Hematology/Oncology Comment on above: Malignant neoplasm o f upper lobe of left lung (HCC) (Primary Dx) Start: 11-24-2023 Telephone encounter Pito cutler MD Work Phone: Hematology/Oncology Comment on above: Orders Start: 11-21-2023 End: 11-21-2023 ambulatory MARYJO FISH Facility:[facility] Start: 11-21-2023 End: 11-21-2023 Patient encounter procedure Maryjo Fish STATION MECHANIC HELPER.RN DERMATOLOGY Work Phone: Palliative Medicine Comment on above: Palliative care by s pecialist (Primary Dx); Neuropathy due to chemotherapeutic drug (HCC); Neoplasm related pain; Encounter for palliative care; Chronic left shoulder pain; Malignant neoplasm of upper lobe of left lung (HCC); Weight loss, unintentional; Nausea; Protein-calorie malnutrition, unspecified severity (HCC); Anxiety; Insomnia due to medical condition Start: 11-11-2023 Telephone encounter Denita rushing RN Work Phone: Hematology/Oncology Comment on above: Care Coordination (A ppointments) Start: 11-04-2023 Telephone encounter Nidia Guzmán Hematology/Oncology Comment on above: Results Care Coordination (C all Request) Start: 11-04-2023 End: 11-04-20[address] RD Work Phone: Nutrition Therapy Comment on above: Nutrition Assessment Start: 11-04-2023 End: 11-04-2023 Patient encounter procedure Pito Grigsby MD Work Phone: [facility] Start: 11-04-2023 End: 11-04-[address] Work Phone: [facility] Comment on above: 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); Tonsillar mass; Hypothyroidism due to medication; Cancer associated pain; Centrilobular emphysema (HCC); Abnormal LFTs Start: 10-21-2023 Telephone encounter Maryjo Fish APRN.RN DERMATOLOGY Work Phone: Hematology/Oncology Comment on above: Pain Start: 10-21-2023 End: 10-21-2023 ambulatory ENRIQUE ESPOSITO Facility:[facility] Start: 10-20-2023 End: 10-20-2023 Refill Pito Grigsby MD Work Phone: [facility] Comment on above: Refill Request 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); Tonsillar mass; Hypothyroidism due to medication; Cancer associated pain; Centrilobular emphysema (HCC) Start: 10-15-2023 End: 10-15-2023 ambulatory [facility] L [facility] Start: 10-08-2023 End: 10-08-2023 ambulatory Enrique L Cate Facility:[facility] Start: 09-22-2023 End: 09-22-20[address] Nutrition therapy [address] RD Work Phone: Nutrition Therapy Comment on above: Nutrition Assessment (No show) Start: 09-22-2023 End: 09-22-2023 Patient encounter procedure Pito Grigsby MD Work Phone: [facility] Start: 09-22-2023 End: 09-22-2023 ambulatory Pito Grigsby MD Work Phone: Hematology/Oncology Comment on above: 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); Tonsillar mass; Hypothyroidism due to medication; Cancer associated pain Start: 09-15-2023 End: 09-15-2023 ambulatory ENRIQUE RACHEL CATE Facility:[facility] Start: 09-02-2023 End: 09-02-2023 ambulatory Enrique L Cate Facility:[facility] Start: 08-26-2023 Telephone encounter Denita rushing RN Work Phone: Hematology/Oncology Comment on above: Care Coordination (T SH Result/) Start: 08-25-2023 End: 08-25-2023 Patient encounter procedure Pito Grigsby MD Work Phone: [facility] Start: 08-25-2023 End: 08-25-2023 ambulatory Pito Grigsby MD Work Phone: Hematology/Oncology Comment on above: 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); Tonsillar mass; Hypothyroidism due to medication; Centrilobular emphysema (HCC); Cancer associated pain Start: 08-20-2023 End: 08-20-2023 ambulatory Enrique L Cate [facility] Start: 08-15-2023 End: 08-15-2023 ambulatory MARYJO FISH Facility:[facility] Start: 07-28-2023 End: 07-28-2023 ambulatory BRENT MILLER Facility:[facility] Start: 07-23-2023 End: 07-23-2023 ambulatory Enrique L Cate [facility] Start: 07-09-2023 End: 07-09-2023 ambulatory Enrique L Cate [facility] Start: 06-30-2023 End: 06-30-2023 Patient encounter procedure Pito Grigsby MD Work Phone: [facility] Start: 06-30-2023 End: 07-01-2023 ambulatory Pito Grigsby MD Work Phone: Hematology/Oncology Comment on above: 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); Tonsillar mass; Primary hypertension; Centrilobular emphysema (HCC); Coronary artery disease involving [place] coronary artery of [place] heart without angina pectoris; Hypothyroidism due to medication; Cancer related pain Start: 06-24-2023 End: 06-24-2023 ambulatory CHRISTINA AZUL Facility:[facility] Start: 06-23-2023 End: 06-23-2023 ambulatory Jyoti LIMON Facility:[facility] Start: 06-20-2023 End: 06-20-2023 ambulatory CHRISTINA AZUL Facility:[facility] Start: 06-19-2023 End: 06-19-2023 ambulatory CHRISTINA AZUL Facility:[facility] Start: 06-18-2023 End: 06-18-2023 ambulatory NYDIA PARKS Facility:[facility] Start: 06-13-2023 End: 06-13-2023 ambulatory MARYJO FISH Facility:[facility] Start: 06-13-2023 End: 06-13-2023 Patient encounter procedure Maryjo Fish APRN.CNP Work Phone: Palliative Medicine Comment on above: Palliative care by s pecialist (Primary Dx); 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); Cancer related pain; Opioid contract exists; Insomnia due to medical condition; Anorexia; Protein-calorie malnutrition, unspecified severity (HCC); Nausea Start: 06-10-2023 End: 06-10-2023 Patient encounter procedure [facility] Provider [facility] Comment on above: Oropharnyx cancer (H CC) (Primary Dx) Start: 06-10-2023 Radiation Oncology Note Jyoti Limon MD Work Phone: Radiation Oncology Comment on above: Simulation Note Treatment Planning Start: 06-10-2023 End: 06-10-2023 ambulatory Jyoti LIMON Facility:[facility] Start: 06-03-2023 Refill Pito Grigsby MD Work Phone: Hematology/Oncology Comment on above: Erroneous encounter- disregard Start: 06-02-2023 End: 06-02-2023 Patient encounter procedure Brent Miller APRN.RN DERMATOLOGY Work Phone: [facility] Start: 06-02-2023 End: 06-02-2023 ambulatory Brent Miller APRN.RN DERMATOLOGY Work Phone: Hematology/Oncology Comment on above: Malignant neoplasm o f upper lobe of left lung (HCC) (Primary Dx); Centrilobular emphysema (HCC); CAD in [place] artery; PVD (peripheral vascular disease) (HCC); Cancer related pain; Tonsillar mass; Abnormal LFTs; Anxiety; Hypothyroidism due to medication Start: 05-30-2023 End: 05-30-2023 Patient encounter procedure Jyoti Limon MD Work Phone: Radiation Oncology Comment on above: Oropharnyx cancer (H CC) (Primary Dx) Start: 05-30-2023 End: 05-30-2023 ambulatory CHRISTINA AZUL Facility:[facility] Start: 05-27-2023 End: 05-27-2023 ambulatory YO TSE Facility:[facility] Start: 05-27-2023 End: 05-27-2023 Patient encounter procedure Yo Tse MD Work Phone: Otolaryngology Comment on above: Oropharyngeal cancer (HCC) (Primary Dx); Tonsillar mass; Malignant neoplasm of upper lobe of left lung (HCC) Start: 05-20-2023 End: 05-20-2023 ambulatory Denita Rai RN Work Phone: Hematology/Oncology Comment on above: Oral Anti-cancer Age nt Education (Sotorasib) Start: 05-20-2023 Telephone encounter Denita rushing RN Work Phone: Hematology/Oncology Comment on above: Care Coordination (O ral Anti-Cancer Agent Follow Up) Care Coordination (S otorasib Start Date) Start: 05-19-2023 Telephone encounter Denita rushing RN Work Phone: Hematology/Oncology Comment on above: Care Coordination (T hroat Pain) Start: 05-16-2023 End: 05-16-2023 Patient encounter procedure Maryjo Fish STATION MECHANIC HELPER.RN DERMATOLOGY Work Phone: Palliative Medicine Comment on above: Palliative care by s pecialist (Primary Dx); Neuropathy due to chemotherapeutic drug (HCC) ; Nausea; Anorexia; Protein-calorie malnutrition, unspecified severity (HCC); Anxiety; Insomnia due to medical condition Refill Request Start: 05-16-2023 End: 05-16-2023 ambulatory MARYJO FISH Facility:[facility] Start: 05-15-2023 Telephone encounter Denita rushing RN Work Phone: Hematology/Oncology Comment on above: Care Coordination (T SH Results) Care Coordination (P ain; Constipation) Start: 05-13-2023 Telephone encounter Analisa Villatoro [facility] Work Phone: Hematology/Oncology Comment on above: Treatment Planning Refill Request Start: 05-13-2023 End: 05-13-2023 ambulatory PITO GRIGSBY Facility:[facility] Start: 05-12-2023 End: 05-12-2023 ambulatory CHRISTINA AZUL Facility:[facility] Start: 05-08-2023 Telephone encounter Denita rushing RN Work Phone: Hematology/Oncology Comment on above: Care Coordination (S ore Throat) Start: 05-05-2023 Refill Analisa Victor gracenathalia [facility] Work Phone: [facility] Comment on above: Refill Request Start: 04-23-2023 Telephone encounter Denita rushing RN Work Phone: Hematology/Oncology Comment on above: Care Coordination (T SH Results) Start: 04-22-2023 End: 04-23-2023 ambulatory [facility] Facility:[facility] Start: 04-22-2023 End: 04-22-2023 ambulatory 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); Cancer related pain; Abnormal LFTs; Anxiety; Centrilobular emphysema (HCC); PVD (peripheral vascular disease) (HCC); Anemia due to antineoplastic chemotherapy; Skin rash Malignant neoplasm o f upper lobe of left lung (HCC) (Primary Dx) Start: 03-17-2023 End: 03-17-2023 ambulatory Enrique L Cate Facility:[facility] [place] Start: 03-11-2023 End: 03-11-2023 Patient encounter procedure Pito Grigsby MD Work Phone: [facility] Start: 03-11-2023 End: 03-12-2023 ambulatory Chair Rebecca Mendez Work Phone: Hematology/Oncology Comment on above: Malignant neoplasm o f upper lobe of left lung (HCC) (Primary Dx) 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); Malaise and fatigue; Cancer related pain; Anxiety; Rash Start: 03-10-2023 Refill Pito Grigsby MD Work Phone: [facility] Comment on above: Refill Request Care Coordination (R shankar) Start: 03-05-2023 Telephone encounter Denita rushing RN Work Phone: Hematology/Oncology Comment on above: Care Coordination (C ough; Cold Symptoms) Start: 02-18-2023 End: 02-18-2023 Patient encounter procedure Pito Grigsby MD Work Phone: [employer] [employer] Start: 02-18-2023 End: 02-19-2023 ambulatory Chair [address] Work Phone: Hematology/Oncology Comment on above: Malignant neoplasm o f upper lobe of left lung (HCC) (Primary Dx) 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); Cancer related pain; Anxiety Start: 02-17-2023 Telephone encounter Pito cutler MD Work Phone: Hematology/Oncology Comment on above: Lab Orders Start: 02-06-2023 Telephone encounter Denita rushing RN Work Phone: Hematology/Oncology Comment on above: Care Coordination (E ar Infection) Start: 01-28-2023 End: 01-28-2023 Patient encounter procedure Jyoti Limon MD Work Phone: Radiation Oncology Comment on above: Malignant neoplasm o f upper lobe of left lung (HCC) (Primary Dx) Start: 01-28-2023 End: 01-28-2023 ambulatory Chair [address] Work Phone: Hematology/Oncology Comment on above: Malignant neoplasm o f upper lobe of left lung (HCC) (Primary Dx) Start: 01-13-2023 Refill Denita naranjo RN Work Phone: Hematology/Oncology Comment on above: Refill Request (Xana x) Start: 01-09-2023 Telephone encounter Pito cutler MD Work Phone: Hematology/Oncology Comment on above: Records faxed Start: 01-08-2023 Telephone encounter Minna Madrigal FIRE EXTINGUISHER CHARGER H ematology/Oncology Comment on above: Social Work Services Appointment Start: 01-07-2023 Telephone encounter Brent davidson RN DERMATOLOGY Work Phone: Cancer [facility] Comment on above: No Show Start: 01-07-2023 End: 01-07-[address] therapy [address]ique Murphy RD Work Phone: Nutrition Therapy Comment on above: Nutrition Assessment Start: 01-07-2023 End: 01-07-2023 ambulatory Chair [address] Work Phone: Hematology/Oncology Comment on above: Malignant neoplasm o f upper lobe of left lung (HCC) (Primary Dx) Start: 01-06-2023 Telephone encounter Pito cutler MD Work Phone: Hematology/Oncology Comment on above: Lab Orders Start: 01-03-2023 End: 01-03-2023 Emergency department patient visit MD Christina Azul Work Phone: [facility] Work Phone: Start: 01-03-2023 Telephone encounter Denita rushing RN Work Phone: Hematology/Oncology Comment on above: Care Coordination (H emoptysis) Start: 12-24-2022 Telephone encounter Denita rushing RN Work Phone: Hematology/Oncology Comment on above: Care Coordination (S ore Throat; Cough) Care Coordination (M MW Update) Start: 12-17-2022 End: 12-17-2022 ambulatory Chair [address] Work Phone: Hematology/Oncology Comment on above: Malignant neoplasm o f upper lobe of left lung (HCC) (Primary Dx) 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); Abnormal LFTs; Cancer related pain Start: 12-17-2022 End: 12-17-2022 Patient encounter procedure Pito Grigsby MD Work Phone: [facility] Start: 11-25-2022 End: 11-25-2022 ambulatory Chair Rebecca Mendez Work Phone: Hematology/Oncology Comment on above: Malignant neoplasm o f upper lobe of left lung (HCC) (Primary Dx) Start: 11-25-2022 End: 11-25-2022 Nutrition therapy Brent Miller APRN.RN DERMATOLOGY Work Phone: Hematology/Oncology Comment on above: Malignant neoplasm o f upper lobe of left lung (HCC) (Primary Dx); Centrilobular emphysema (HCC); Abnormal LFTs; Cancer related pain; PVD (peripheral vascular disease) (HCC); Malaise and fatigue; Protein-calorie malnutrition, unspecified severity (HCC) Start: 11-25-2022 End: 11-25-2022 Patient encounter procedure Brent Miller APRN.RN DERMATOLOGY Work Phone: [facility] Start: 11-21-2022 Telephone encounter Pito cutler MD Work Phone: Hematology/Oncology Comment on above: Lab Orders Start: 11-20-2022 Telephone encounter Pito cutler MD Work Phone: Radiation Oncology Comment on above: Depression; Decrease d Appetite Start: 11-20-2022 End: 11-20-2022 Patient encounter procedure Jyoti Limon MD Work Phone: Radiation Oncology Comment on above: Cancer associated pa in (Primary Dx); Malignant neoplasm of upper lobe of left lung (HCC) Start: 11-18-2022 End: 11-18-2022 ambulatory Pito Grigsby MD Work Phone: Hematology/Oncology Comment on above: 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); Cancer related pain; Abnormal LFTs Start: 11-18-2022 End: 11-18-2022 Patient encounter procedure Pito Grigsby MD Work Phone: [facility] Start: 11-14-2022 Telephone encounter Pito cutler MD Work Phone: Hematology/Oncology Comment on above: Lab Orders Start: 11-12-2022 Patient encounter procedure Jyoti Deon Limon MD Work Phone: [facility] Start: 11-12-2022 Radiation Oncology Note G Vik Limon MD Work Phone: Radiation Oncology Comment on above: Completion Note Start: 11-11-2022 End: 11-11-2022 Refill Pito Grigsby MD Work Phone: Radiation Oncology Comment on above: Refill Request Insurance Authorizat ion (Oxycodone-Acetaminophen ) Malignant neoplasm o f upper lobe of left lung (HCC) (Primary Dx) 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); Cancer related pain; Abnormal LFTs Start: 11-04-2022 End: 11-04-2022 Patient encounter procedure Jyoti Deon Limon MD Work Phone: Radiation Oncology Comment on above: Malignant neoplasm o f upper lobe of left lung (HCC) (Primary Dx) Start: 11-02-2022 Telephone encounter Jayson davis MD Work Phone: Hematology/Oncology Comment on above: Patient Question Start: 10-31-2022 End: 10-31-2022 ambulatory Pito Grigsby MD Work Phone: Hematology/Oncology Comment on above: 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); Cancer related pain; Centrilobular emphysema (HCC); Primary hypertension Start: 10-31-2022 End: 10-31-2022 Patient encounter procedure Pito Grigsby MD Work Phone: [facility] Start: 10-30-2022 End: 10-30-[address] Work Phone: [facility] Start: 10-30-2022 End: 10-30-2022 Nutrition therapy Dominique Gray RD Work Phone: Nutrition Therapy Comment on above: Nutrition Assessment Start: 10-24-2022 Telephone encounter Denita rushing RN Work Phone: Hematology/Oncology Comment on above: Care Coordination (C 1D1 Post Treatment Call) Start: 10-22-2022 Telephone encounter Denita rushing RN Work Phone: Hematology/Oncology Comment on above: Care Coordination (N utrition Consult) Start: 10-21-2022 End: 10-21-2022 ambulatory Chair [address] Work Phone: Hematology/Oncology Comment on above: Malignant neoplasm o f upper lobe of left lung (HCC) (Primary Dx) 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); Cancer related pain Start: 10-21-2022 End: 10-21-2022 Patient encounter procedure Jyoti Limon MD Work Phone: [employer] Comment on above: Malignant neoplasm o f unspecified part of unspecified bronchus or lung (HCC) (Primary Dx) Start: 10-21-2022 Radiation Oncology Note G Vik Limon MD Work Phone: Radiation Oncology Comment on above: Simulation Note Treatment Planning Start: 10-18-2022 Telephone encounter Pito cutler MD Work Phone: Hematology/Oncology Comment on above: Lab Orders Start: 10-17-2022 Telephone encounter Denita rushing RN Work Phone: Hematology/Oncology Comment on above: Care Coordination (P ain) Start: 10-15-2022 Telephone encounter Pito cutler MD Work Phone: Radiology Comment on above: Biopsy Request Start: 10-15-2022 End: 10-15-2022 ambulatory Pito Grigsby MD Work Phone: Hematology/Oncology Comment on above: Malignant neoplasm o f upper lobe of left lung (HCC) (Primary Dx); Abnormal CT of the chest; Lung nodules; Centrilobular emphysema (HCC) Start: 10-15-2022 End: 10-15-2022 Patient encounter procedure Pito Grigsby MD Work Phone: [employer] [employer] Start: 10-10-2022 End: 10-10-2022 ambulatory [facility]BERT[facility] Facility:[facility] Start: 09-23-2022 End: 09-23-2022 ambulatory Pito Grigsby MD Work Phone: Hematology/Oncology Comment on above: Malignant neoplasm o f upper lobe of left lung (HCC) (Primary Dx); Lung nodules; Centrilobular emphysema (HCC) Start: 09-23-2022 End: 09-23-2022 Patient encounter procedure Pito Grigsby MD Work Phone: [facility] Start: 09-20-2022 End: 09-20-2022 ambulatory [facility] Start: 09-19-2022 End: 09-20-[address] [facility] Facility:[facility] Start: 09-18-2022 End: 09-18-2022 ambulatory [facility] Start: 09-11-2022 Telephone encounter Denita rushing RN Work Phone: Hematology/Oncology Comment on above: Care Coordination (R espiratory Symptoms) Start: 08-20-2022 End: 08-20-2022 ambulatory Pito Grigsby MD Work Phone: Hematology/Oncology Comment on above: Malignant neoplasm o f upper lobe of left lung (HCC) (Primary Dx); Centrilobular emphysema (HCC) Start: 08-20-2022 End: 08-20-2022 Patient encounter procedure Pito Grigsby MD Work Phone: [facility] Start: 06-25-2022 End: 06-25-2022 ambulatory Brent Miller APRN.RN DERMATOLOGY Work Phone: Hematology/Oncology Comment on above: Malignant neoplasm o f upper lobe of left lung (HCC) (Primary Dx); Anemia due to antineoplastic chemotherapy Start: 06-25-2022 End: 06-25-2022 Patient encounter procedure Brent Miller APRN.RN DERMATOLOGY Work Phone: [facility] Comment on above: Thyroid cancer (HCC) (Primary Dx) Start: 06-11-2022 End: 06-11-2022 Patient encounter procedure Jyoti Limon MD Work Phone: Radiation Oncology Comment on above: Malignant neoplasm o f unspecified part of unspecified bronchus or lung (HCC) (Primary Dx) Start: 06-07-2022 Telephone encounter Jyoti Limon MD Work Phone: Radiation Oncology Comment on above: Patient Update; Appo intment Start: 06-06-2022 Telephone encounter Radha Palmer PA-C Work Phone: Pulmonary Medicine Comment on above: Follow Up Missed Mark ointment Start: 05-23-2022 End: 05-24-[address] BRANDON HENRY Facility:[facility] Start: 05-13-2022 Telephone encounter Radha Palmer PA-C Work Phone: Pulmonary Medicine Comment on above: Appointment Confirma tion (Confirmed/) Start: 05-01-2022 Patient encounter procedure Jyoti Limon MD Work Phone: [employer] [employer] Start: 05-01-2022 Radiation Oncology Note Jyoti Limon MD Work Phone: Radiation Oncology Comment on above: Completion Note Start: 05-01-2022 End: 05-02-[address] CHRISTINA AZUL . Facility: Start: 04-29-2022 Refill Verito Whelan MD Work Phone: Radiation Oncology Comment on above: Refill Request Medication Problem Start: 04-22-2022 End: 04-22-2022 Patient encounter procedure Jyoti Limon MD Work Phone: Radiation Oncology Comment on above: Malignant neoplasm o f upper lobe of left lung (HCC) (Primary Dx) Start: 04-17-2022 Telephone encounter Brent davidson APRN.CNP Work Phone: Hematology/Oncology Comment on above: Lab Orders Start: 04-15-2022 End: 04-15-2022 Patient encounter procedure Jyoti Limon MD Work Phone: Radiation Oncology Comment on above: Malignant neoplasm o f upper lobe of left lung (HCC) (Primary Dx) Start: 04-12-2022 End: 04-13-[address] BRANDON HENRY Facility:[facility] Start: 04-08-2022 End: 04-08-2022 Patient encounter procedure Jyoti Limon MD Work Phone: Radiation Oncology Comment on above: Cancer related pain (Primary Dx); Malignant neoplasm of unspecified part of unspecified bronchus or lung (HCC) Start: 04-03-2022 End: 04-03-[address] Work Phone: [facility] Start: 04-03-2022 End: 04-03-2022 Nutrition therapy Dominique Gray RD Work Phone: Nutrition Therapy Comment on above: Nutrition Assessment Start: 04-01-2022 End: 04-01-2022 Patient encounter procedure Jyoti Limon MD Work Phone: Radiation Oncology Comment on above: Malignant neoplasm o f upper lobe of left lung (HCC) (Primary Dx) Refill Request Start: 04-01-2022 Telephone encounter Jyoti Limon MD Work Phone: Radiation Oncology Comment on above: Patient Update Start: 03-26-2022 End: 03-26-2022 Patient encounter procedure Jyoti Limon MD Work Phone: Radiation Oncology Comment on above: Malignant neoplasm o f upper lobe of left lung (HCC) (Primary Dx) Start: 03-22-2022 End: 03-23-[address] BRANDON HENRY Facility:[facility] Start: 03-19-2022 End: 03-19-2022 ambulatory Brent Miller APRN.RN DERMATOLOGY Work Phone: Hematology/Oncology Comment on above: Malignant neoplasm o f upper lobe of left lung (HCC) (Primary Dx); Anemia due to antineoplastic chemotherapy; Skin infection; Rash Start: 03-19-2022 End: 03-19-2022 Patient encounter procedure Brent Miller APRN.RN DERMATOLOGY Work Phone: [facility] Start: 03-14-2022 End: 03-14-2022 Patient encounter procedure Jyoti Limon MD Work Phone: [facility] Comment on above: Malignant neoplasm o f upper lobe of left lung (HCC) (Primary Dx) Start: 03-14-2022 Radiation Oncology Note Jyoti Limon MD Work Phone: Radiation Oncology Comment on above: Simulation Note Treatment Planning Start: 02-27-2022 End: 02-27-2022 Departed Referred PAGodfrey Swann Work Phone: [facility] [place] Start: 02-26-2022 Telephone encounter Denita rushing RN Work Phone: Hematology/Oncology Comment on above: Care Coordination (R shankar) Start: 02-22-2022 Refill Verito Whelan MD Work Phone: Pulmonary Medicine Comment on above: Refill Request Start: 02-20-2022 End: 02-20-2022 ambulatory Brent Miller APRN.RN DERMATOLOGY Work Phone: Hematology/Oncology Comment on above: Malignant neoplasm o f upper lobe of left lung (HCC) (Primary Dx); Anemia due to antineoplastic chemotherapy; Acute kidney injury (HCC); Skin infection Start: 02-20-2022 End: 02-20-2022 Patient encounter procedure Brent Miller APRN.RN DERMATOLOGY Work Phone: [facility] Start: 02-11-2022 Telephone encounter Denita rushing RN Work Phone: Hematology/Oncology Comment on above: Care Coordination (R shankar) Start: 02-08-2022 Patient encounter procedure [facility] Provider [facility] Department Start: 02-08-2022 End: 02-08-[address] BRENT MILLER Facility:[facility]1 Start: 02-07-2022 End: 02-08-[address] BRENT MILLER Facility:[facility] Start: 02-07-2022 End: 02-07-2022 ambulatory Brent Miller APRN.RN DERMATOLOGY Work Phone: Hematology/Oncology Comment on above: Malignant neoplasm o f upper lobe of left lung (HCC) (Primary Dx); Anemia due to antineoplastic chemotherapy; Acute kidney injury (HCC); Skin infection Start: 02-07-2022 End: 02-07-2022 Patient encounter procedure Brent Miller APRN.RN DERMATOLOGY Work Phone: [facility] Start: 02-07-2022 Telephone encounter Brent davidson APRN.RN DERMATOLOGY [facility] on above: [facility]fusion Start: 01-30-2022 End: 01-30-2022 Patient encounter procedure Jyoti Limon MD Work Phone: Radiation Oncology Comment on above: Malignant neoplasm o f upper lobe of left lung (HCC) (Primary Dx) Start: 01-30-2022 ambulatory Merissa Fam RN Hematol ogy/Oncology Comment on above: Patient Education Start: 01-30-2022 Telephone encounter Brent davidson APRN.RN DERMATOLOGY Work Phone: Hematology/Oncology Comment on above: Lab Orders Start: 01-29-2022 End: 01-29-2022 ambulatory Pulm [facility] Lab Main 11 Other Phone: Pulmonary Medicine Comment on above: Spirometry Start: 01-29-2022 End: 01-29-2022 Patient encounter procedure Pulm Fct Lab Main 11 Other Phone: [facility] Comment on above: Chronic obstructive pulmonary disease, unspecified COPD type (HCC); Malignant neoplasm of upper lobe of left lung (HCC); PAD (peripheral artery disease) (HCC) Start: 01-29-2022 End: 01-29-2022 Subsequent hospital visit by physician Xr Chest Main A21 Radiology Comment on above: Malignant neoplasm o f upper lobe of left lung (HCC) [C34.12] Start: 01-22-2022 End: 01-22-2022 ambulatory Pito Grigsby MD Work Phone: Hematology/Oncology Comment on above: Malignant neoplasm o f upper lobe of left lung (HCC) (Primary Dx); Anemia due to antineoplastic chemotherapy Start: 01-22-2022 End: 01-22-2022 Patient encounter procedure Pito Grigsby MD Work Phone: [facility] Start: 01-14-2022 Telephone encounter Pito cutler MD Work Phone: Hematology/Oncology Comment on above: Lab Orders Start: 01-14-2022 End: 01-14-2022 ambulatory Pito Grigsby MD Work Phone: Hematology/Oncology Comment on above: Malignant neoplasm o f upper lobe of left lung (HCC) (Primary Dx); Anemia due to antineoplastic chemotherapy; Skin infection Start: 01-14-2022 End: 01-14-2022 Patient encounter procedure Pito Grigsby MD Work Phone: [facility] Start: 01-09-2022 Telephone encounter Pito cutler MD Work Phone: Hematology/Oncology Comment on above: Lab Orders Start: 12-24-2021 Telephone encounter Pito cutler MD Work Phone: Hematology/Oncology Comment on above: Results (hypokalemia ) Start: 12-24-2021 End: 12-24-2021 ambulatory Chair Osiris Mendez Work Phone: Hematology/Oncology Comment on above: Malignant neoplasm o f upper lobe of left lung (HCC) (Primary Dx) Malignant neoplasm o f upper lobe of left lung (HCC) (Primary Dx); Acute kidney injury (HCC); Anemia due to antineoplastic chemotherapy Start: 12-24-2021 End: 12-24-2021 Patient encounter procedure Pito Grigsby MD Work Phone: [facility] Start: 12-13-2021 Telephone encounter Verito rodriguez MD Work Phone: Pulmonary Medicine Comment on above: Missed Appointment ( Request to Reschedule ) Start: 12-07-2021 End: 12-08-[address] CHRISTINA AZUL . Facility: Start: 12-05-2021 Telephone encounter Denita rushing RN Work Phone: Hematology/Oncology Comment on above: Care Coordination (C 1D1 Post Treatment Call (Carboplatin)) Start: 12-03-2021 End: 12-03-2021 ambulatory Denita Rai RN Work Phone: Hematology/Oncology Comment on above: Chemotherapy Treatme nt (Carboplatin, Alimta) Malignant neoplasm o f upper lobe of left lung (HCC) (Primary Dx); Acute kidney injury (HCC) Start: 12-03-2021 End: 12-03-2021 Patient encounter procedure Mindy Pandya PA-C Work Phone: [facility] Start: 11-30-2021 Telephone encounter Brent davidson APRN.RN DERMATOLOGY Work Phone: Cancer [facility] Comment on above: Future Appointment Lab Orders Start: 11-30-2021 End: 11-30-2021 ambulatory Brent Miller APRN.RN DERMATOLOGY Work Phone: Hematology/Oncology Comment on above: Malignant neoplasm o f upper lobe of left lung (HCC) (Primary Dx); Acute kidney injury (HCC) Malignant neoplasm o f upper lobe of left lung (HCC) (Primary Dx) Start: 11-30-2021 End: 11-30-2021 Patient encounter procedure Brent Miller APRN.RN DERMATOLOGY Work Phone: [facility] Start: 11-29-2021 Telephone encounter Denita rushing RN Work Phone: Hematology/Oncology Comment on above: Care Coordination (L ow Blood Pressure) Start: 11-26-2021 End: 11-26-2021 ambulatory Pito Grigsby MD Work Phone: Hematology/Oncology Comment on above: Malignant neoplasm o f upper lobe of left lung (HCC) (Primary Dx); Acute kidney injury (HCC) Start: 11-26-2021 End: 11-26-2021 Patient encounter procedure Pito Grigsby MD Work Phone: [facility] Start: 11-21-2021 End: 11-21-2021 ambulatory Chair 21 Vanessa Work Phone: Hematology/Oncology Comment on above: Malignant neoplasm o f upper lobe of left lung (HCC) (Primary Dx); Acute kidney injury (HCC) Start: 11-19-2021 Telephone encounter Denita rushing RN Work Phone: Hematology/Oncology Comment on above: Care Coordination (D ischarge Follow Up Call) Care Coordination (H ypotension) Patient Update; Catarino d Pressure Start: 11-19-2021 End: 11-19-2021 ambulatory Chair 21 Vanessa Work Phone: Hematology/Oncology Comment on above: Malignant neoplasm o f upper lobe of left lung (HCC) (Primary Dx); Acute kidney injury (HCC) Start: 11-16-2021 End: 11-18-[address] YUNIOR DOMINGUEZ Facility:H1 Start: 11-16-2021 Telephone encounter Denita rushing RN Work Phone: Hematology/Oncology Comment on above: Care Coordination (B MP Results) Care Coordination (H ypertension) Start: 11-16-2021 End: 11-16-2021 ambulatory Chair 21 Vanessa Work Phone: Hematology/Oncology Comment on above: Acute kidney injury (HCC) (Primary Dx); Malignant neoplasm of upper lobe of left lung (HCC) Start: 11-15-2021 End: 11-15-2021 ambulatory Chair 21 [place] Work Phone: Hematology/Oncology Comment on above: Malignant neoplasm o f upper lobe of left lung (HCC) (Primary Dx) Start: 11-14-2021 Telephone encounter Denita rushing RN Work Phone: Hematology/Oncology Comment on above: Care Coordination (L ab Results) Start: 11-13-2021 End: 11-13-2021 ambulatory Chair 21 [place] Work Phone: Hematology/Oncology Comment on above: Malignant neoplasm o f upper lobe of left lung (HCC) (Primary Dx) Start: 11-12-2021 End: 11-12-2021 ambulatory Chair 21 Vanessa Work Phone: Hematology/Oncology Comment on above: Malignant neoplasm o f upper lobe of left lung (HCC) (Primary Dx) Start: 11-12-2021 Telephone encounter Denita rushing RN Work Phone: Hematology/Oncology Comment on above: Care Coordination (L ab ) Start: 11-09-2021 Telephone encounter Denita rushing RN Work Phone: Hematology/Oncology Comment on above: Care Coordination (C 1D1 Post Treatment Call) Start: 11-05-2021 End: 11-05-2021 ambulatory Brent Miller APRN.RN DERMATOLOGY Work Phone: Hematology/Oncology Comment on above: Malignant neoplasm o f upper lobe of left lung (HCC) (Primary Dx) Start: 11-05-2021 End: 11-05-2021 Patient encounter procedure Brent Miller APRN.RN DERMATOLOGY Work Phone: [facility] Start: 10-31-2021 Patient encounter procedure [facility] Provider [facility] Department Start: 10-31-2021 End: 10-31-2021 Subsequent hospital visit by physician Jenelle Orona (I-Stat/1.5t) Radiology Comment on above: Malignant neoplasm o f upper lobe of left lung (HCC) [C34.12] Start: 10-30-2021 Telephone encounter Denita rushing RN Work Phone: Hematology/Oncology Comment on above: Care Coordination (R esearch Trial) Lab Orders Start: 10-29-2021 ambulatory Katlin Omer [facility] Work Phone: Hematology/Oncology Comment on above: First Time Treatment Education First Time Treatment Education (Pemetrexed, Cisplatin) Start: 10-29-2021 Telephone encounter Denita rushing RN Work Phone: Hematology/Oncology Comment on above: Care Coordination (F olic Acid) Start: 10-29-2021 End: 10-29-2021 Nursing evaluation of patient and report Lisa Chang Work Phone: Hematology/Oncology Comment on above: Malignant neoplasm o f upper lobe of left lung (HCC) (Primary Dx) Start: 10-26-2021 Telephone encounter Denita rushing RN Work Phone: Hematology/Oncology Comment on above: Care Coordination (E ducation Appointment) Care Coordination (M RI) Start: 10-25-2021 Telephone encounter Denita rushing RN Work Phone: Hematology/Oncology Comment on above: Care Coordination (A ntiemetics & Folic Acid) Start: 10-24-2021 End: 10-25-2021 Patient encounter procedure Jyoti Limon MD Work Phone: Radiation Oncology Comment on above: Malignant neoplasm o f upper lobe of left lung (HCC) Start: 10-19-2021 Telephone encounter Renetta Ponce MD Work Phone: Hematology/Oncology Comment on above: Care Coordination Start: 10-19-2021 End: 10-19-2021 ambulatory Renetta Ponce MD Work Phone: Hematology/Oncology Comment on above: Malignant neoplasm o f upper lobe of left lung (HCC) Start: 10-19-2021 End: 10-19-2021 Patient encounter procedure Renetta Ponce MD Work Phone: [facility] Start: 10-11-2021 End: 10-11-2021 Patient encounter procedure Aracelis Carrillo APRN.RN DERMATOLOGY Work Phone: [facility] Comment on above: Malignant neoplasm o f upper lobe of left lung (HCC) (Primary Dx) Start: 10-11-2021 End: 10-11-2021 Subsequent hospital visit by physician Xr Chest Main J1 Work Phone: Radiology Comment on above: Follow-up examinatio n following surgery [Z09] Start: 05-28-2021 End: 05-28-2021 Subsequent hospital visit by physician [facility] [address] Comment on above: Malignant neoplasm o f unspecified part of unspecified bronchus or lung (HCC) [C34.90] Start: 02-23-2019 End: 02-24-2019 Patient encounter procedure PROVIDER UNKNOWN Facility:[facility] Procedures Date Procedure Procedure Detail Performing Clinician Start: 01-03-2023 CT angiography of thorax MD Christina Azul Work Phone: Start: 01-03-2023 Plain chest X-ray MD Nawaf Azul Work Phone: Start: 11-11-2022 HEPATIC FUNCTION PNL Altagracia Grigsby MD Work Phone: Start: 11-11-2022 Lactate dehydrogenase ldh Pito Grigsby MD Work Phone: Start: 06-11-2022 Radiologic exam ches t 2 views G Deon Limon MD Work Phone: Start: 03-19-2022 Adult depression scr eening assessment Brent Miller [employer]IC HELPER.RN DERMATOLOGY Work Phone: Start: 01-29-2022 Brncdilat rspse spmt ry pre&post-brncdilat admn Verito Whelan MD Work Phone: Start: 01-29-2022 Radiologic exam ches t 2 views Aracelis Carrillo [employer]ATION MECH[employer]IC HELPER.RN DERMATOLOGY Work Phone: Start: 12-11-2021 Adult depression scr eening assessment Verito Whelan MD Work Phone: Start: 12-07-2021 PSA screening LOVE MARTINEZ Comment on above: Performed By: #### P SAD #### [facility] [address] [place] [address] Dr. Usama Hobbs Start: 11-21-2021 Basic metabolic pane l calcium total M Mumtaz PA-C Work Phone: Start: 11-19-2021 Basic metabolic pane l calcium total M Mumtaz PA-C Work Phone: Start: 11-16-2021 Basic metabolic pane l calcium total M Mumtaz PA-C Work Phone: Start: 10-31-2021 Mri brain brain stem w/o w/contrast material Renetta Ponce MD Work Phone: Start: 10-11-2021 Radiologic exam ches t 2 views Marianne Fields MD Work Phone: Start: 05-28-[address] attenuation whole body Marianne Fields MD Work Phone: Aerobic microbial culture PA -Kyara Swann Work Phone: Plan of Treatment Date Care Activity Detail Author Start: 10-13-2030 Urine microalbumin profile [facility] Start: 02-02-2027 Diabetes Screening Diabetes Screenin g [facility] Start: 12-22-2026 Diabetes Screening Diabetes Screenin jyoti [facility] Start: 12-07-2026 PROSTATE CANCER SCREENING DISCUSSION PROSTATE CANCER SCREENING DISCUSSION [facility] Start: 12-07-2026 Prostate specific antigen measurement Prostate Cancer Screening Discussion [facility] Start: 11-24-2026 Diabetes Screening Diabetes Screenin jyoti [facility] Start: 11-03-2026 Diabetes Screening Diabetes Screenin jyoti [facility] Start: 10-19-2026 Diabetes Screening Diabetes Screenin g [facility] Start: 09-21-2026 Diabetes Screening Diabetes Screenin g [facility] Start: 08-25-2026 Diabetes Screening Diabetes Screenin jyoti [facility] Start: 06-30-2026 Diabetes Screening Diabetes Screenin jyoti [facility] Start: 06-02-2026 Diabetes Screening Diabetes Screenin jyoti [facility] Start: 05-13-2026 Diabetes Screening Diabetes Screenin jyoti [facility] Start: 04-22-2026 Diabetes Screening Diabetes Screenin jyoti [facility] Start: 04-01-2026 Diabetes Screening Diabetes Screenin jyoti [facility] Start: 03-11-2026 DIABETES SCREEN DIABETES SCREEN [facility] Start: 02-18-2026 DIABETES SCREEN DIABETES SCREEN [facility] Start: 01-28-2026 DIABETES SCREEN DIABETES SCREEN [facility] Start: 01-07-2026 DIABETES SCREEN DIABETES SCREEN [facility] Start: 12-27-2025 DIABETES SCREEN DIABETES SCREEN [facility] Start: 12-17-2025 DIABETES SCREEN DIABETES SCREEN [facility] Start: 11-25-2025 DIABETES SCREEN DIABETES SCREEN [facility] Start: 11-18-2025 DIABETES SCREEN DIABETES SCREEN [facility] Start: 11-11-2025 DIABETES SCREEN DIABETES SCREEN [facility] Start: 10-31-2025 DIABETES SCREEN DIABETES SCREEN [facility] Start: 10-21-2025 DIABETES SCREEN DIABETES SCREEN [facility] Start: 09-23-2025 DIABETES SCREEN DIABETES SCREEN [facility] Start: 08-20-2025 DIABETES SCREEN DIABETES SCREEN [facility] Start: 06-25-2025 DIABETES SCREEN DIABETES SCREEN [facility] Start: 04-30-2025 DIABETES SCREEN DIABETES SCREEN [facility] Start: 03-19-2025 DIABETES SCREEN DIABETES SCREEN [facility] Start: 02-20-2025 DIABETES SCREEN DIABETES SCREEN [facility] Start: 02-07-2025 DIABETES SCREEN DIABETES SCREEN [facility] Start: 02-02-2025 BP Controlled (<130/80) BP Controlle d (<130/80) [facility] Start: 01-22-2025 DIABETES SCREEN DIABETES SCREEN [facility] Start: 01-14-2025 DIABETES SCREEN DIABETES SCREEN [facility] Start: 01-03-2025 DIABETES SCREEN DIABETES SCREEN [facility] Start: 12-24-2024 DIABETES SCREEN DIABETES SCREEN [facility] Start: 12-11-2024 DIABETES SCREEN DIABETES SCREEN [facility] Start: 12-03-2024 DIABETES SCREEN DIABETES SCREEN [facility] Start: 11-30-2024 DIABETES SCREEN DIABETES SCREEN [facility] Start: 11-26-2024 DIABETES SCREEN DIABETES SCREEN [facility] Start: 11-21-2024 DIABETES SCREEN DIABETES SCREEN [facility] Start: 11-19-2024 DIABETES SCREEN DIABETES SCREEN [facility] Start: 11-16-2024 DIABETES SCREEN DIABETES SCREEN [facility] Start: 11-14-2024 DIABETES SCREEN DIABETES SCREEN [facility] Start: 11-12-2024 DIABETES SCREEN DIABETES SCREEN [facility] Start: 11-05-2024 DIABETES SCREEN DIABETES SCREEN [facility] Start: 10-04-2024 DIABETES SCREEN DIABETES SCREEN [facility] Start: 06-30-2024 BP Controlled (<130/80) BP Controlle d (<130/80) [facility] Start: 04-20-2024 ambulatory Ambulatory Facility:F T [facility] Start: 04-12-2024 ambulatory Ambulatory Facility:F T [facility] Start: 03-21-2024 Influenza vaccination C [facility] Start: 03-18-2024 End: 03-18-2024 Follow-up encounter 03/18/2024 1:30 PM EDT Visit (SP) Office Hematology/Oncology [address] [place], [place] [address] [address] Pito Grigsby MD [address] [place] [address] [place] [address] 6 week follow up Hematology/Oncology Comment on above: 6 week follow up Start: 03-18-2024 End: 03-18-2024 Patient encounter procedure 03/18/2024 1:15 PM EDT Office Visit [facility] [address] [place] [address] 6 week follow up [facility] Comment on above: 6 week follow up Start: 03-15-2024 End: 03-15-2024 Patient encounter procedure 03/15/2024 1:00 PM EDT Office Visit Pulmonary Medicine [address] [place] [address] [place] [address] [place] [address] *vanessa called and requested appointment Pulmonary Medicine Comment on above: *vanessa called and requested appointment Start: 03-09-2024 End: 03-09-2024 Patient encounter procedure 03/09/2024 9:00 AM EDT Appointment Radiology Pet CT [address] [place] [address] Comment on above: PET Start: 02-27-2024 End: 02-27-2024 Patient encounter procedure 02/27/2024 10:30 AM EDT Office Visit Palliative Medicine [address] [place] [address] Maryjo Fish, STATION MECHANIC HELPER.RN DERMATOLOGY [address] [place] [address] 3 month follow up Palliative Medicine Comment on above: 3 month follow up Start: 02-07-2024 Plain chest X-ray XR chest 2V* [facility] Start: 02-07-2024 XR Chest 2 Views [facility] Start: 02-03-2024 End: 05-04-2024 CBC W Auto Differential panel - Blood COMPLETE BLOOD COUNT AND DIFFERENTIAL Lab Routine 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 Expected: 02/03/2024, Expires: 05/04/2024 [facility] Comment on above: Expected: 02/03/2024 , Expires: 05/04/2024 Start: 02-03-2024 End: 05-04-2024 Comprehensive metabolic 2000 panel - Serum or Plasma COMPREHENSIVE METABOLIC PANEL Lab Routine 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 Expected: 02/03/2024, Expires: 05/04/2024 [facility] Work Phone: Comment on above: Expected: 02/03/2024 , Expires: 05/04/2024 Start: 02-03-2024 End: 05-04-2024 Thyrotropin [Units/volume] in Serum or Plasma THYROID STIMULATING HORMONE Lab Routine 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 Expected: 02/03/2024, Expires: 05/04/2024 [facility] Comment on above: Expected: 02/03/2024 , Expires: 05/04/2024 Start: 02-03-2024 End: 02-03-2024 Follow-up encounter 02/03/2024 11:30 AM EDT Visit (SP) Office Hematology/Oncology [address] [place] [address] Mindy Pandya, PA-C [address] [place] [address] 6 week follow up Hematology/Oncology Comment on above: 6 week follow up Start: 02-03-2024 End: 02-03-2024 Patient encounter procedure 02/03/2024 11:15 AM EDT Office Visit [facility] [address] [place] [address] 6 week follow up [facility] Comment on above: 6 week follow up Start: 01-29-2024 BP CONTROLLED (<130/80) BP CONTROLLE D (<130/80) [facility] Start: 01-27-2024 End: 04-27-2024 CBC W Auto Differential panel - Blood COMPLETE BLOOD COUNT AND DIFFERENTIAL Lab Routine 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) Expected: 01/27/2024, Expires: 04/27/2024 [facility] Comment on above: Expected: 01/27/2024 , Expires: 04/27/2024 Start: 01-27-2024 End: 04-27-2024 Comprehensive metabolic 2000 panel - Serum or Plasma COMPREHENSIVE METABOLIC PANEL Lab Routine 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) Expected: 01/27/2024, Expires: 04/27/2024 [facility] Work Phone: Comment on above: Expected: 01/27/2024 , Expires: 04/27/2024 Start: 12-30-2023 End: 12-30-2023 ambulatory 12/30/2023 11:30 AM EDT Visit (SP) Office Hematology/Oncology [address] [place] [address] [place] [address] Yunior Thacker LMT [address] [place] [address] [place] [address] Massage pt in the lobby Hematology/Oncology Comment on above: Massage pt in the lobby Start: 12-24-2023 End: 12-24-2023 Patient encounter procedure Radiation Oncology Comment on above: Chest wall Chest wall- do compl etion tasks for both areas Start: 12-23-2023 End: 12-23-2023 Follow-up encounter 12/23/2023 2:45 PM EDT Visit (SP) Office Hematology/Oncology [address] [place] [address] [place] [address] Pito Grigsby MD [address] [place] [address] [place] [address] 3 week follow up after Dr. Limon consult and XRT Hematology/Oncology Comment on above: 3 week follow up aft er Dr. Limon consult and XRT Start: 12-23-2023 End: 12-23-2023 Patient encounter procedure [facility] Comment on above: 3 week follow up aft er Dr. Limon consult and XRT Chest wall- grigsby\T \ labs 2:30 Start: 12-23-2023 End: 12-23-2023 Patient encounter procedure 12/23/2023 10:15 AM EDT Appointment Radiation Oncology [address] [place] [address] Chest wall Radiation Oncology Comment on above: Chest wall Start: 12-22-2023 End: 12-22-2023 Patient encounter procedure Radiation Oncology Comment on above: Chest wall Location: [facility] Start: 12-19-2023 End: 12-19-2023 Patient encounter procedure 12/19/2023 10:45 AM EDT Appointment Radiation Oncology [address] [place] [address] Chest wall Radiation Oncology Comment on above: Chest wall Start: 12-18-2023 BP CONTROLLED (<130/80) BP CONTROLLE D (<130/80) [facility] Start: 12-18-2023 End: 12-18-2023 Patient encounter procedure 12/18/2023 2:00 PM EDT Appointment Radiation Oncology [address] [place] [address] Chest wall Radiation Oncology Comment on above: Chest wall Start: 12-17-2023 End: 12-17-2023 Patient encounter procedure 12/17/2023 12:15 PM EDT Appointment Radiation Oncology [address] [place] [address] Neck and Chest wall Radiation Oncology Comment on above: Neck and Chest wall Start: 12-10-2023 End: 12-10-2023 Patient encounter procedure Radiation Oncology Comment on above: [place], TONSIL AN D CW 2 ISO CW \T\ TONSIL pt prefers Start: 12-08-2023 End: 12-08-2023 Patient encounter procedure Radiation Oncology Comment on above: [place], Thorax Thorax pt prefers Start: 12-03-2023 End: 12-03-2023 Patient encounter procedure Radiation Oncology Comment on above: SIM Presim Start: 12-02-2023 End: 12-02-2023 Follow-up encounter Hematology/Oncology Comment on above: 4 week follow up aft er PET scan - Lumakras oral med 4 week follow up aft er PET scan with labs - Lumakras oral med Start: 11-26-2023 BP CONTROLLED (<130/80) BP CONTROLLE D (<130/80) [facility] Start: 11-25-2023 End: 02-24-2024 CBC W Auto Differential panel - Blood COMPLETE BLOOD COUNT AND DIFFERENTIAL Lab Routine Malignant neoplasm of upper lobe of left lung (HCC) Expected: 11/25/2023 (Approximate), Expires: 02/24/2024 [facility] Work Phone: Comment on above: Expected: 11/25/2023 (Approximate), Expires: 02/24/2024 Start: 11-25-2023 End: 02-24-2024 Comprehensive metabolic 2000 panel - Serum or Plasma COMPREHENSIVE METABOLIC PANEL Lab Routine Malignant neoplasm of upper lobe of left lung (HCC) Expected: 11/25/2023 (Approximate), Expires: 02/24/2024 [facility] Comment on above: Expected: 11/25/2023 (Approximate), Expires: 02/24/2024 Start: 11-25-2023 End: 02-24-2024 Thyrotropin [Units/volume] in Serum or Plasma THYROID STIMULATING HORMONE Lab Routine Malignant neoplasm of upper lobe of left lung (HCC) Expected: 11/25/2023 (Approximate), Expires: 02/24/2024 [facility] Comment on above: Expected: 11/25/2023 (Approximate), Expires: 02/24/2024 Start: 11-25-2023 End: 11-25-2023 Patient encounter procedure 11/25/2023 10:45 AM EDT Appointment Radiology Pet CT [address] [place] [address] Comment on above: PET Start: 11-21-2023 End: 11-21-2023 Patient encounter procedure 11/21/2023 10:00 AM EDT Office Visit Palliative Medicine [address] [place] [address] Maryjo Fish, STATION MECHANIC HELPER.RN DERMATOLOGY [address] [place] [address] 3 month follow up Palliative Medicine Comment on above: 3 month follow up Start: 11-19-2023 BP CONTROLLED (<130/80) BP CONTROLLE D (<130/80) [facility] Start: 11-01-2023 BP CONTROLLED (<130/80) BP CONTROLLE D (<130/80) [facility] Start: 10-29-2023 BP CONTROLLED (<130/80) BP CONTROLLE D (<130/80) [facility] Start: 10-22-2023 BP CONTROLLED (<130/80) BP CONTROLLE D (<130/80) [facility] Start: 09-24-2023 BP CONTROLLED (<130/80) BP CONTROLLE D (<130/80) [facility] Start: 08-25-2023 End: 11-24-2023 T4/FTI/T4U [facility] Work Phone: Comment on above: Expected: 08/25/2023 , Expires: 11/24/2023 Start: 08-25-2023 End: 11-24-2023 Thyrotropin [Units/volume] in Serum or Plasma [facility] Work Phone: Comment on above: Expected: 08/25/2023 , Expires: 11/24/2023 Start: 08-20-2023 BP CONTROLLED (<130/80) BP CONTROLLE D (<130/80) [facility] Start: 07-21-2023 Advance Directive Discussion Advance Directive Discussion [facility] Start: 07-21-2023 Behavioral Health Screening Behavioral Health Screening [facility] Start: 07-21-2023 Depression Assessment Depression Ass essment [facility] Start: 07-01-2023 End: 09-30-2023 CBC W Auto Differential panel - Blood CBC + DIFF Lab Routine Malignant neoplasm of upper lobe of left lung (HCC) Centrilobular emphysema (HCC) CAD in [place] artery PVD (peripheral vascular disease) (HCC) Cancer related pain Tonsillar mass Abnormal LFTs Anxiety Hypothyroidism due to medication Expected: 07/01/2023, Expires: 09/30/2023 [facility] Work Phone: Comment on above: Expected: 07/01/2023 , Expires: 09/30/2023 Start: 07-01-2023 End: 09-30-2023 Comprehensive metabolic 2000 panel - Serum or Plasma COMP METABOLIC PANEL Lab Routine Malignant neoplasm of upper lobe of left lung (HCC) Centrilobular emphysema (HCC) CAD in [place] artery PVD (peripheral vascular disease) (HCC) Cancer related pain Tonsillar mass Abnormal LFTs Anxiety Hypothyroidism due to medication Expected: 07/01/2023, Expires: 09/30/2023 [facility] Work Phone: Comment on above: Expected: 07/01/2023 , Expires: 09/30/2023 Start: 07-01-2023 End: 09-30-2023 Thyrotropin [Units/volume] in Serum or Plasma TSH BLD Lab Routine Malignant neoplasm of upper lobe of left lung (HCC) Centrilobular emphysema (HCC) CAD in [place] artery PVD (peripheral vascular disease) (HCC) Cancer related pain Tonsillar mass Abnormal LFTs Anxiety Hypothyroidism due to medication Expected: 07/01/2023, Expires: 09/30/2023 [facility] Work Phone: Comment on above: Expected: 07/01/2023 , Expires: 09/30/2023 Start: 06-13-2023 End: 09-12-2023 TOX SCREEN ROUT UR TOX SCREEN ROUT UR Lab Routine Opioid contract exists Expected: 06/13/2023, Expires: 09/12/2023 [facility] Work Phone: Comment on above: Expected: 06/13/2023 , Expires: 09/12/2023 Start: 06-11-2023 BP CONTROLLED (<130/80) BP CONTROLLE D (<130/80) [facility] Start: 06-02-2023 End: 09-01-2023 CBC W Auto Differential panel - Blood CBC + DIFF Lab Routine Malignant neoplasm of upper lobe of left lung (HCC) Expected: 06/02/2023, Expires: 09/01/2023 [facility] Work Phone: Comment on above: Expected: 06/02/2023 , Expires: 09/01/2023 Start: 04-22-2023 End: 06-22-2023 CBC W Auto Differential panel - Blood CBC + DIFF Lab Routine 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) Cancer related pain Abnormal LFTs Anxiety Centrilobular emphysema (HCC) PVD (peripheral vascular disease) (HCC) Anemia due to antineoplastic chemotherapy Skin rash Expected: 04/22/2023, Expires: 06/22/2023 [facility] Work Phone: Comment on above: Expected: 04/22/2023 , Expires: 06/22/2023 Start: 04-22-2023 End: 06-22-2023 Comprehensive metabolic 2000 panel - Serum or Plasma COMP METABOLIC PANEL Lab Routine 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) Cancer related pain Abnormal LFTs Anxiety Centrilobular emphysema (HCC) PVD (peripheral vascular disease) (HCC) Anemia due to antineoplastic chemotherapy Skin rash Expected: 04/22/2023, Expires: 06/22/2023 [facility] Work Phone: Comment on above: Expected: 04/22/2023 , Expires: 06/22/2023 Start: 04-22-2023 End: 06-22-2023 Thyrotropin [Units/volume] in Serum or Plasma TSH BLD Lab Routine 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) Cancer related pain Abnormal LFTs Anxiety Centrilobular emphysema (HCC) PVD (peripheral vascular disease) (HCC) Anemia due to antineoplastic chemotherapy Skin rash Expected: 04/22/2023, Expires: 06/22/2023 [facility] Work Phone: Comment on above: Expected: 04/22/2023 , Expires: 06/22/2023 Start: 03-26-2023 BP CONTROLLED (<130/80) BP CONTROLLE D (<130/80) [facility] Start: 03-21-2023 Covid-19 Vaccine ( season) Covid-19 Vaccine () [facility] Start: 03-21-2023 Influenza vaccination C [facility] Start: 03-19-2023 Adult depression screening assessment DEPRESSION SCREENING [facility] Start: 03-19-2023 BP CONTROLLED (<130/80) BP CONTROLLE D (<130/80) [facility] Start: 03-11-2023 End: 05-11-2023 T4/FTI/T4U [facility] Work Phone: Comment on above: Expected: 03/11/2023 , Expires: 05/11/2023 Start: 03-11-2023 End: 05-11-2023 Thyrotropin [Units/volume] in Serum or Plasma [facility] Work Phone: Comment on above: Expected: 03/11/2023 , Expires: 05/11/2023 Start: 02-20-2023 BP CONTROLLED (<130/80) BP CONTROLLE D (<130/80) [facility] Start: 02-08-2023 COLORECTAL CANCER SCREENING COLORECTAL CANCER SCREENING [facility] Start: 02-08-2023 FECAL OCCULT BLOOD FECAL OCCULT BLOO D [facility] Start: 02-08-2023 Screening for malign ant neoplasm of colon [facility] Start: 02-07-2023 BP CONTROLLED (<130/80) BP CONTROLLE D (<130/80) [facility] Start: 01-30-2023 BP CONTROLLED (<130/80) BP CONTROLLE D (<130/80) [facility] Start: 01-22-2023 BP CONTROLLED (<130/80) BP CONTROLLE D (<130/80) [facility] Start: 01-14-2023 BP CONTROLLED (<130/80) BP CONTROLLE D (<130/80) [facility] Start: 01-07-2023 End: 03-09-2023 Thyrotropin [Units/volume] in Serum or Plasma [facility] Work Phone: Comment on above: Expected: 01/07/2023 , Expires: 03/09/2023 Start: 12-27-2022 End: 02-26-2023 Comprehensive metabolic 2000 panel - Serum or Plasma COMP METABOLIC PANEL Lab Routine 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) Abnormal LFTs Expected: 12/27/2022 (Approximate), Expires: 02/26/2023 [facility] Work Phone: Comment on above: Expected: 12/27/2022 (Approximate), Expires: 02/26/2023 Start: 12-24-2022 BP CONTROLLED (<130/80) BP CONTROLLE D (<130/80) [facility] Start: 12-16-2022 End: 02-15-2023 CBC W Auto Differential panel - Blood CBC + DIFF Lab Routine Malignant neoplasm of upper lobe of left lung (HCC) Centrilobular emphysema (HCC) Abnormal LFTs Cancer related pain PVD (peripheral vascular disease) (HCC) Malaise and fatigue Expected: 12/16/2022, Expires: 02/15/2023 [facility] Work Phone: Comment on above: Expected: 12/16/2022 , Expires: 02/15/2023 Start: 12-16-2022 End: 02-15-2023 Comprehensive metabolic 2000 panel - Serum or Plasma COMP METABOLIC PANEL Lab Routine Malignant neoplasm of upper lobe of left lung (HCC) Centrilobular emphysema (HCC) Abnormal LFTs Cancer related pain PVD (peripheral vascular disease) (HCC) Malaise and fatigue Expected: 12/16/2022, Expires: 02/15/2023 [facility] Work Phone: Comment on above: Expected: 12/16/2022 , Expires: 02/15/2023 Start: 12-16-2022 End: 02-15-2023 Thyrotropin [Units/volume] in Serum or Plasma TSH BLD Lab Routine Malignant neoplasm of upper lobe of left lung (HCC) Centrilobular emphysema (HCC) Abnormal LFTs Cancer related pain PVD (peripheral vascular disease) (HCC) Malaise and fatigue Expected: 12/16/2022, Expires: 02/15/2023 [facility] Work Phone: Comment on above: Expected: 12/16/2022 , Expires: 02/15/2023 Start: 12-11-2022 Adult depression screening assessment DEPRESSION SCREENING [facility] Start: 12-11-2022 BP CONTROLLED (<130/80) BP CONTROLLE D (<130/80) [facility] Start: 12-09-2022 End: 02-08-2023 CBC W Auto Differential panel - Blood CBC + DIFF Lab Routine Malignant neoplasm of upper lobe of left lung (HCC) Centrilobular emphysema (HCC) Abnormal LFTs Cancer related pain PVD (peripheral vascular disease) (HCC) Expected: 12/09/2022, Expires: 02/08/2023 [facility] Work Phone: Comment on above: Expected: 12/09/2022 , Expires: 02/08/2023 Start: 12-09-2022 End: 02-08-2023 Comprehensive metabolic 2000 panel - Serum or Plasma COMP METABOLIC PANEL Lab Routine Malignant neoplasm of upper lobe of left lung (HCC) Centrilobular emphysema (HCC) Abnormal LFTs Cancer related pain PVD (peripheral vascular disease) (HCC) Expected: 12/09/2022, Expires: 02/08/2023 [facility] Work Phone: Comment on above: Expected: 12/09/2022 , Expires: 02/08/2023 Start: 12-03-2022 BP CONTROLLED (<130/80) BP CONTROLLE D (<130/80) [facility] Start: 11-30-2022 BP CONTROLLED (<130/80) BP CONTROLLE D (<130/80) [facility] Start: 11-26-2022 BP CONTROLLED (<130/80) BP CONTROLLE D (<130/80) [facility] Start: 11-25-2022 End: 01-25-2023 CBC W Auto Differential panel - Blood CBC + DIFF Lab Routine 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) Abnormal LFTs Expected: 11/25/2022, Expires: 01/25/2023 [facility] Work Phone: Comment on above: Expected: 11/25/2022 , Expires: 01/25/2023 Start: 11-25-2022 End: 01-25-2023 Comprehensive metabolic 2000 panel - Serum or Plasma COMP METABOLIC PANEL Lab Routine 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) Abnormal LFTs Expected: 11/25/2022, Expires: 01/25/2023 [facility] Work Phone: Comment on above: Expected: 11/25/2022 , Expires: 01/25/2023 Start: 11-25-2022 End: 01-25-2023 Thyrotropin [Units/volume] in Serum or Plasma TSH BLD Lab Routine 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) Abnormal LFTs Malaise and fatigue Expected: 11/25/2022, Expires: 01/25/2023 [facility] Work Phone: Comment on above: Expected: 11/25/2022 , Expires: 01/25/2023 Start: 11-18-2022 End: 01-18-2023 CBC W Auto Differential panel - Blood CBC + DIFF Lab Routine 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) Expected: 11/18/2022, Expires: 01/18/2023 [facility] Work Phone: Comment on above: Expected: 11/18/2022 , Expires: 01/18/2023 Start: 11-18-2022 End: 01-18-2023 Comprehensive metabolic 2000 panel - Serum or Plasma COMP METABOLIC PANEL Lab Routine 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) Expected: 11/18/2022, Expires: 01/18/2023 [facility] Work Phone: Comment on above: Expected: 11/18/2022 , Expires: 01/18/2023 Start: 11-18-2022 End: 01-18-2023 Lactate dehydrogenase [Enzymatic activity/volume] in Serum or Plasma LD LACTATE DEHYDRO Lab Routine 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) Expected: 11/18/2022, Expires: 01/18/2023 [facility] Work Phone: Comment on above: Expected: 11/18/2022 , Expires: 01/18/2023 Start: 11-12-2022 BP CONTROLLED (<130/80) BP CONTROLLE D (<130/80) [facility] Start: 11-05-2022 BP CONTROLLED (<130/80) BP CONTROLLE D (<130/80) [facility] Start: 10-24-2022 BP CONTROLLED (<130/80) BP CONTROLLE D (<130/80) [facility] Start: 10-19-2022 BP CONTROLLED (<130/80) BP CONTROLLE D (<130/80) [facility] Start: 10-15-2022 End: 12-15-2022 MISC SEND OUT TST 1 MISC SEND OUT TST 1 Lab Routine Malignant neoplasm of upper lobe of left lung (HCC) Expected: 10/15/2022, Expires: 12/15/2022 [facility] Work Phone: Comment on above: Expected: 10/15/2022 , Expires: 12/15/2022 Start: 10-11-2022 BP CONTROLLED (<130/80) BP CONTROLLE D (<130/80) [facility] Start: 09-17-2022 End: 11-17-2022 CBC W Auto Differential panel - Blood CBC + DIFF Lab Routine Malignant neoplasm of upper lobe of left lung (HCC) Malaise and fatigue Expected: 09/17/2022 (Approximate), Expires: 11/17/2022 [facility] Work Phone: Comment on above: Expected: 09/17/2022 (Approximate), Expires: 11/17/2022 Start: 09-17-2022 End: 11-17-2022 Comprehensive metabolic 2000 panel - Serum or Plasma COMP METABOLIC PANEL Lab Routine Malignant neoplasm of upper lobe of left lung (HCC) Malaise and fatigue Expected: 09/17/2022 (Approximate), Expires: 11/17/2022 [facility] Work Phone: Comment on above: Expected: 09/17/2022 (Approximate), Expires: 11/17/2022 Start: 09-17-2022 End: 11-17-2022 Lactate dehydrogenase [Enzymatic activity/volume] in Serum or Plasma LD LACTATE DEHYDRO Lab Routine Malignant neoplasm of upper lobe of left lung (HCC) Malaise and fatigue Expected: 09/17/2022 (Approximate), Expires: 11/17/2022 [facility] Work Phone: Comment on above: Expected: 09/17/2022 (Approximate), Expires: 11/17/2022 Start: 09-17-2022 End: 11-17-2022 Thyrotropin [Units/volume] in Serum or Plasma TSH BLD Lab Routine Malignant neoplasm of upper lobe of left lung (HCC) Malaise and fatigue Expected: 09/17/2022 (Approximate), Expires: 11/17/2022 [facility] Work Phone: Comment on above: Expected: 09/17/2022 (Approximate), Expires: 11/17/2022 Start: 08-20-2022 End: 10-20-2022 CBC W Auto Differential panel - Blood CBC + DIFF Lab Routine Malignant neoplasm of upper lobe of left lung (HCC) Anemia due to antineoplastic chemotherapy Expected: 08/20/2022, Expires: 10/20/2022 [facility] Work Phone: Comment on above: Expected: 08/20/2022 , Expires: 10/20/2022 Start: 08-20-2022 End: 10-20-2022 Comprehensive metabolic 2000 panel - Serum or Plasma COMP METABOLIC PANEL Lab Routine Malignant neoplasm of upper lobe of left lung (HCC) Anemia due to antineoplastic chemotherapy Expected: 08/20/2022, Expires: 10/20/2022 [facility] Work Phone: Comment on above: Expected: 08/20/2022 , Expires: 10/20/2022 Start: 07-21-2022 ADVANCE DIRECTIVE DISCUSSION ADVANCE DIRECTIVE DISCUSSION [facility] [facility] Start: 07-21-2022 DEPRESSION ASSESSMENT DEPRESSION ASS ESSMENT [facility] Start: 06-25-2022 End: 08-25-2022 THYROGLOBULIN BY MASS SPECTROMETRY THYROGLOBULIN BY MASS SPECTROMETRY Lab Routine Thyroid cancer (HCC) Expected: 06/25/2022, Expires: 08/25/2022 [facility] Work Phone: Comment on above: Expected: 06/25/2022 , Expires: 08/25/2022 Start: 04-18-2022 End: 06-18-2022 CBC W Auto Differential panel - Blood CBC + DIFF Lab Routine Malignant neoplasm of upper lobe of left lung (HCC) Expected: 04/18/2022, Expires: 06/18/2022 [facility] Work Phone: Comment on above: Expected: 04/18/2022 , Expires: 06/18/2022 Start: 04-18-2022 End: 06-18-2022 Comprehensive metabolic 2000 panel - Serum or Plasma COMP METABOLIC PANEL Lab Routine Malignant neoplasm of upper lobe of left lung (HCC) Expected: 04/18/2022, Expires: 06/18/2022 [facility] Work Phone: Comment on above: Expected: 04/18/2022 , Expires: 06/18/2022 Start: 03-21-2022 Influenza vaccination [facility] Start: 02-22-2022 End: 04-24-2022 CBC W Auto Differential panel - Blood [facility] Work Phone: Comment on above: Expected: 02/22/2022 , Expires: 04/24/2022 Start: 02-22-2022 End: 04-24-2022 Comprehensive metabolic 2000 panel - Serum or Plasma [facility] Work Phone: Comment on above: Expected: 02/22/2022 , Expires: 04/24/2022 Start: 02-15-2022 End: 04-17-2022 CBC W Auto Differential panel - Blood CBC + DIFF Lab Routine Malignant neoplasm of upper lobe of left lung (HCC) Expected: 02/15/2022, Expires: 04/17/2022 [facility] Work Phone: Comment on above: Expected: 02/15/2022 , Expires: 04/17/2022 Start: 2022 ADVANCE DIRECTIVE DISCUSSION ADVANCE DIRECTIVE DISCUSSION [facility] Start: 02-07-2022 End: 04-09-2022 Iron and Iron binding capacity panel - Serum or Plasma [facility] Work Phone: Comment on above: Expected: 02/07/2022 , Expires: 04/09/2022 Start: 02-05-2022 End: 04-07-2022 CBC W Auto Differential panel - Blood CBC + DIFF Lab Routine Malignant neoplasm of upper lobe of left lung (HCC) Expected: 02/05/2022, Expires: 04/07/2022 [facility] Work Phone: Comment on above: Expected: 02/05/2022 , Expires: 04/07/2022 Start: 02-05-2022 End: 04-07-2022 Comprehensive metabolic 2000 panel - Serum or Plasma COMP METABOLIC PANEL Lab Routine Malignant neoplasm of upper lobe of left lung (HCC) Expected: 02/05/2022, Expires: 04/07/2022 [facility] Work Phone: Comment on above: Expected: 02/05/2022 , Expires: 04/07/2022 Start: 02-05-2022 End: 04-07-2022 Magnesium [Mass/volume] in Serum or Plasma MAGNESIUM BLD Lab Routine Malignant neoplasm of upper lobe of left lung (HCC) Expected: 02/05/2022, Expires: 04/07/2022 [facility] Work Phone: Comment on above: Expected: 02/05/2022 , Expires: 04/07/2022 Start: 01-22-2022 End: 03-24-2022 CBC W Auto Differential panel - Blood CBC + DIFF Lab Routine Malignant neoplasm of upper lobe of left lung (HCC) Expected: 01/22/2022, Expires: 03/24/2022 [facility] Work Phone: Comment on above: Expected: 01/22/2022 , Expires: 03/24/2022 Start: 01-22-2022 End: 03-24-2022 Comprehensive metabolic 2000 panel - Serum or Plasma COMP METABOLIC PANEL Lab Routine Malignant neoplasm of upper lobe of left lung (HCC) Expected: 01/22/2022, Expires: 03/24/2022 [facility] Work Phone: Comment on above: Expected: 01/22/2022 , Expires: 03/24/2022 Start: 01-10-2022 End: 03-12-2022 CBC W Auto Differential panel - Blood CBC + DIFF Lab Routine Malignant neoplasm of upper lobe of left lung (HCC) Expected: 01/10/2022, Expires: 03/12/2022 [facility] Work Phone: Comment on above: Expected: 01/10/2022 , Expires: 03/12/2022 Start: 01-10-2022 End: 03-12-2022 Comprehensive metabolic 2000 panel - Serum or Plasma COMP METABOLIC PANEL Lab Routine Malignant neoplasm of upper lobe of left lung (HCC) Expected: 01/10/2022, Expires: 03/12/2022 [facility] Work Phone: Comment on above: Expected: 01/10/2022 , Expires: 03/12/2022 Start: 01-10-2022 End: 03-12-2022 Magnesium [Mass/volume] in Serum or Plasma MAGNESIUM BLD Lab Routine Malignant neoplasm of upper lobe of left lung (HCC) Expected: 01/10/2022, Expires: 03/12/2022 [facility] Work Phone: Comment on above: Expected: 01/10/2022 , Expires: 03/12/2022 Start: 01-03-2022 End: 03-05-2022 CBC W Auto Differential panel - Blood CBC + DIFF Lab Routine Malignant neoplasm of upper lobe of left lung (HCC) Expected: 01/03/2022, Expires: 03/05/2022 [facility] Work Phone: Comment on above: Expected: 01/03/2022 , Expires: 03/05/2022 Start: 01-03-2022 End: 03-05-2022 Comprehensive metabolic 2000 panel - Serum or Plasma COMP METABOLIC PANEL Lab Routine Malignant neoplasm of upper lobe of left lung (HCC) Expected: 01/03/2022, Expires: 03/05/2022 [facility] Work Phone: Comment on above: Expected: 01/03/2022 , Expires: 03/05/2022 Start: 01-03-2022 End: 03-05-2022 Magnesium [Mass/volume] in Serum or Plasma MAGNESIUM BLD Lab Routine Malignant neoplasm of upper lobe of left lung (HCC) Expected: 01/03/2022, Expires: 03/05/2022 [facility] Work Phone: Comment on above: Expected: 01/03/2022 , Expires: 03/05/2022 Start: 12-10-2021 End: 02-09-2022 CBC W Auto Differential panel - Blood CBC + DIFF Lab Routine Malignant neoplasm of upper lobe of left lung (HCC) Acute kidney injury (HCC) Expected: 12/10/2021 (Approximate), Expires: 02/09/2022 [facility] Work Phone: Comment on above: Expected: 12/10/2021 (Approximate), Expires: 02/09/2022 Start: 12-10-2021 End: 02-09-2022 Comprehensive metabolic 2000 panel - Serum or Plasma COMP METABOLIC PANEL Lab Routine Malignant neoplasm of upper lobe of left lung (HCC) Acute kidney injury (HCC) Expected: 12/10/2021 (Approximate), Expires: 02/09/2022 [facility] Work Phone: Comment on above: Expected: 12/10/2021 (Approximate), Expires: 02/09/2022 Start: 12-03-2021 End: 02-02-2022 CBC W Auto Differential panel - Blood CBC + DIFF Lab Routine Malignant neoplasm of upper lobe of left lung (HCC) Expected: 12/03/2021, Expires: 02/02/2022 [facility] Work Phone: Comment on above: Expected: 12/03/2021 , Expires: 02/02/2022 Start: 12-03-2021 End: 02-02-2022 Comprehensive metabolic 2000 panel - Serum or Plasma COMP METABOLIC PANEL Lab Routine Malignant neoplasm of upper lobe of left lung (HCC) Expected: 12/03/2021, Expires: 02/02/2022 [facility] Work Phone: Comment on above: Expected: 12/03/2021 , Expires: 02/02/2022 Start: 11-30-2021 End: 01-30-2022 CBC W Auto Differential panel - Blood CBC + DIFF Lab Routine Malignant neoplasm of upper lobe of left lung (HCC) Acute kidney injury (HCC) Expected: 11/30/2021, Expires: 01/30/2022 [facility] Work Phone: Comment on above: Expected: 11/30/2021 , Expires: 01/30/2022 Start: 11-30-2021 End: 01-30-2022 Comprehensive metabolic 2000 panel - Serum or Plasma COMP METABOLIC PANEL Lab Routine Malignant neoplasm of upper lobe of left lung (HCC) Acute kidney injury (HCC) Expected: 11/30/2021, Expires: 01/30/2022 [facility] Work Phone: Comment on above: Expected: 11/30/2021 , Expires: 01/30/2022 Start: 11-19-2021 End: 01-19-2022 Basic metabolic 2000 panel - Serum or Plasma [facility] Work Phone: Comment on above: Expected: 11/19/2021 , Expires: 01/19/2022 Start: 11-14-2021 End: 01-14-2022 Basic metabolic 2000 panel - Serum or Plasma BASIC METABOLIC PNL Lab Routine Malignant neoplasm of upper lobe of left lung (HCC) Expected: 11/14/2021, Expires: 01/14/2022 [facility] Work Phone: Comment on above: Expected: 11/14/2021 , Expires: 01/14/2022 Start: 11-12-2021 End: 01-12-2022 CBC W Auto Differential panel - Blood CBC + DIFF Lab Routine Malignant neoplasm of upper lobe of left lung (HCC) Expected: 11/12/2021, Expires: 01/12/2022 [facility] Work Phone: Comment on above: Expected: 11/12/2021 , Expires: 01/12/2022 Start: 11-12-2021 End: 01-12-2022 Comprehensive metabolic 2000 panel - Serum or Plasma COMP METABOLIC PANEL Lab Routine Malignant neoplasm of upper lobe of left lung (HCC) Expected: 11/12/2021, Expires: 01/12/2022 [facility] Work Phone: Comment on above: Expected: 11/12/2021 , Expires: 01/12/2022 Start: 10-26-2021 End: 11-18-2022 Mri brain brain stem w/o w/contrast material MRI BRAIN WO/W IVCON Radiology Routine Malignant neoplasm of upper lobe of left lung (HCC) Expected: 10/26/2021, Expires: 11/18/2022 [facility] Work Phone: Comment on above: Expected: 10/26/2021 , Expires: 11/18/2022 Start: 09-11-2021 Covid-19 Vaccine (5 - Moderna series) Covid-19 Vaccine (5 - Moderna series) [facility] Start: 07-21-2021 DEPRESSION ASSESSMENT DEPRESSION ASS ESSMENT [facility] Start: 05-15-2021 COVID-19 VACCINE (3 - Booster for Moderna series) COVID-19 VACCINE (3 - Booster for Moderna series) [facility] Start: 03-21-2021 Influenza vaccination INFLUENZA (#1) [facility] Start: 02-07-2021 COVID-19 VACCINE (3 - Moderna series) COVID-19 VACCINE (3 - Moderna series) [facility] Start: 01-10-2021 COVID-19 VACCINE (3 - Moderna risk 4-dose series) COVID-19 VACCINE (3 - Moderna risk 4-dose series) [facility] Start: 01-10-2021 COVID-19 VACCINE (3 - Moderna risk series) COVID-19 VACCINE (3 - Moderna risk series) [facility] Start: 2017 RSV Vaccine (1 - 1-d ose 60+ series) RSV Vaccine (1 - 1-dose 60+ series) [facility] Start: 02-14-2012 PROSTATE CANCER SCREENING DISCUSSION PROSTATE CANCER SCREENING DISCUSSION [facility] Start: 02-14-2012 Prostate specific antigen measurement Prostate Cancer Screening Discussion [facility] Start: 2007 SHINGRIX VACCINE (1 of 2) SHINGRIX VACCINE (1 of 2) [facility] Start: 2002 COLOGUARD (FIT-DNA) COLOGUARD (FIT-D NA) [facility] Start: 2002 Colonoscopy COLONOSCOPY [facility] Start: 2002 COLORECTAL CANCER SCREENING COLORECTAL CANCER SCREENING [facility] Start: [address] COLONOGRAPHY [facility] Start: 2002 FECAL OCCULT BLOOD FECAL OCCULT BLOO D [facility] Start: 2002 Screening for malign ant neoplasm of colon [facility] Start: 2002 SIGMO[facility]OSCOPY [facility] Start: 02-14-1992 Lipid 1996 panel - Serum or Plasma Lipid Screening [facility] Start: 02-14-1992 Lipid panel Lipid Screening [facility] Start: 02-14-1992 LIPID SCREEN LIPID SCREEN [facility] Start: 1987 Zoledronic acid therapy ALPHA- 1 ANTITRYPSIN DEFICIENCY SCREENING [facility] Start: 02-14-1976 SHINGRIX VACCINE (1 of 2) SHINGRIX VACCINE (1 of 2) [facility] Start: 1975 ANNUAL PCP TEAM TUBE DRAWING SUPERVISOR ALYSSA DISEASE VISIT ANNUAL PCP TEAM CHRONIC DISEASE VISIT [facility] Start: 1975 Anxiety Screening Anxiety Screening [facility] Start: 1975 BP CONTROLLED (<130/80) BP CONTROLLE D (<130/80) [facility] Start: 1975 Depression Screening Depression Scre ening [facility] Start: 1975 Hepatitis B surface antibody level LDL CHOLESTEROL [facility] Start: 1975 HEPATITIS C SCREENING HEPATITIS C SC [facility] Start: 1975 Hepatitis C screening Hepatitis C [facility] Start: 1975 HIV SCREENING HIV SCREENING [facility] Start: 1969 Adult depression screening assessment DEPRESSION SCREENING [facility] Start: 1963 PNEUMOCOCCAL (1 - PCV) PNEUMOCOCCAL (1 - PCV) [facility] Start: 1963 Pneumococcal Vaccine : 65+ (1 - PCV) Pneumococcal Vaccine: 65+ (1 - PCV) [facility] Start: 1963 Pneumococcal Vaccine : 65+ (1 of 2 - PCV) Pneumococcal Vaccine: 65+ (1 of 2 - PCV) [facility] Start: 1963 PNEUMOCOCCAL: 65+ (1 - PCV) PNEUMOCOCCAL: 65+ (1 - PCV) [facility] Start: 1957 ABDOMINAL AORTIC ANEURYSM SCREENING ABDOMINAL AORTIC ANEURYSM SCREENING [facility] Start: 1957 Abdominal aortic aneurysm screening Abdominal Aortic Aneurysm Screening [facility] Biopsy soft tissue neck/thorax BIOPSY SOFT TISSUE NECK/CHEST Procedures Routine Malignant neoplasm of upper lobe of left lung (HCC) Ordered: 10/15/2022 [facility] Work Phone: Comment on above: Ordered: 10/15/2022 End: 05-08-2023 Bone &/joint imaging whole body NM BONE WHOLE BODY Radiology Routine Malignant neoplasm of unspecified part of unspecified bronchus or lung (HCC) 1 Occurrences starting 04/08/2022 until 05/08/2023 [facility] Work Phone: Comment on above: 1 Occurrences starti ng 04/08/2022 until 05/08/2023 End: 09-19-2023 Ct abdomen & pelvis w/contrast material CT ABD/PEL W IVCON Radiology Routine Malignant neoplasm of upper lobe of left lung (HCC) 1 Occurrences starting 08/20/2022 until 09/19/2023 [facility] Work Phone: Comment on above: 1 Occurrences starti ng 08/20/2022 until 09/19/2023 End: 09-19-2023 CT CHEST W IVCON CT CHEST W IVCON Radiology Routine 1 Occurrences starting 08/20/2022 until 09/19/2023 [facility] Work Phone: Comment on above: 1 Occurrences starti ng 08/20/2022 until 09/19/2023 CT Guidance for radiation treatment of Unspecified body region CT SIM PLANNING RADIATION ONCOLOGY Radiology Routine Malignant neoplasm of upper lobe of left lung (HCC) Ordered: 12/02/2023 [facility] Work Phone: Comment on above: Ordered: 12/02/2023 CT SIM PLANNING RADIATION ONCOLOGY CT SIM PLANNING RADIATION ONCOLOGY Radiology Routine Malignant neoplasm of upper lobe of left lung (HCC) Ordered: 03/20/2022 [facility] Work Phone: Comment on above: Ordered: 03/20/2022 CT SIM PLANNING RADIATION ONCOLOGY CT SIM PLANNING RADIATION ONCOLOGY Radiology Routine Malignant neoplasm of unspecified part of unspecified bronchus or lung (HCC) Ordered: 10/21/2022 [facility] Work Phone: Comment on above: Ordered: 10/21/2022 CT SIM PLANNING RADIATION ONCOLOGY CT SIM PLANNING RADIATION ONCOLOGY Radiology Routine Oropharnyx cancer (HCC) Ordered: 06/11/2023 [facility] Work Phone: Comment on above: Ordered: 06/11/2023 Hemoglobin.gastroint est inal.lower [Presence] in Stool by Immunoassay FECAL OCCULT BLOOD TEST Lab Routine Malignant neoplasm of upper lobe of left lung (HCC) Ordered: 02/07/2022 [facility] Work Phone: Comment on above: Ordered: 02/07/2022 Hepatic function 200 0 panel - Serum or Plasma HEPATIC FUNCTION PNL Lab STAT Malignant neoplasm of upper lobe of left lung (HCC) 11/11/2022 2:47 PM EDT [facility] Work Phone: End: 10-23-2023 NM PET/CT SKULL-THIGH SUBSEQUENT NM PET/CT SKULL-THIGH SUBSEQUENT Radiology Routine Lung nodules 1 Occurrences starting 09/23/2022 until 10/23/2023 [facility] Work Phone: Comment on above: 1 Occurrences starti ng 09/23/2022 until 10/23/2023 End: 09-23-2024 NM PET/CT SKULL-THIGH SUBSEQUENT NM PET/CT SKULL-THIGH SUBSEQUENT Radiology Routine 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) 1 Occurrences starting 11/04/2023 until 12/03/2024 [facility] Work Phone: Comment on above: 1 Occurrences starti ng 11/04/2023 until 12/03/2024 End: 03-04-2025 PET+CT Guidance for localization of tumor of Skull base to mid-thigh-- W [id number] IV NM PET/CT SKULL-THIGH SUBSEQUENT Radiology Routine 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 Swelling of arm Cancer associated pain 1 Occurrences starting 02/03/2024 until 03/04/2025 [facility] Comment on above: 1 Occurrences starti ng 02/03/2024 until 03/04/2025 End: 11-10-2022 Radiologic exam chest 2 views XR CHEST 2V FRONTAL/LAT Radiology Routine Malignant neoplasm of upper lobe of left lung (HCC) 1 Occurrences starting 10/11/2021 until 11/10/2022 [facility] Work Phone: Comment on above: 1 Occurrences starti ng 10/11/2021 until 11/10/2022 SPIROMETRY WITH DILA TOR IF OBSTRUCTED SPIROMETRY WITH DILATOR IF OBSTRUCTED PFT Routine Chronic obstructive pulmonary disease, unspecified COPD type (HCC) Lung nodule 01/29/2022 7:47 AM EDT [facility] Work Phone: End: 03-04-2025 US Upper extremity vein - left US DVT UPPER LEFT Radiology STAT 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) Swelling of arm 1 Occurrences starting 02/03/2024 until 03/04/2025 [facility] Comment on above: 1 Occurrences starti ng 02/03/2024 until 03/04/2025 [facility] Immunizations Immunization Date Immunization Notes Care Provider Odette kilgore 12-13-2020 COVID-19 vaccine, fu ll dose (MODERNA) Aracelis Carrillo APRN.RN DERMATOLOGY Work Phone: [facility] 11-15-2020 COVID-19 vaccine, fu ll dose (MODERNA) Aracelis Carrillo STATION MECHANIC HELPER.RN DERMATOLOGY Work Phone: [facility] 10-13-2020 diphtheria, tetanus toxoids and pertussis vaccine Aracelis Carrillo STATION MECHANIC HELPER.RN DERMATOLOGY Work Phone: [facility] Payers Date Payer Category Payer Self-pay [id number] 2023 Private Health Insurance [facility] [id number] 2022 Medicare MEDICARE MEDICAR E A AND B [id number] 2022-[facility] [phone] [address] [address] [place] [address] Medicare [id number] 2022 Medicare [id number] 2019 Medicaid [id number] 2000 Medicaid [id number] 1959 Medicare [id number] 1959 Unknown [id number] 1957 Unknown [id number] 2.16.840.1.195456.3.579.2.6 47 1957 Unknown [id number] 2.16.840.1.536909.3.579.2.5 93 1957 Unknown [id number] 2.16.840.1.581725.3.579.2.5 93 1957 Unknown [id number] 2.16.840.1.554256.3.579.2.5 93 1957 Unknown [id number] 2.16.840.1.686370.3.579.2.5 93 1957 Unknown [id number] 2.16.840.1.081976.3.579.2.5 93 1957 Unknown [id number] 2.16.840.1.141404.3.579.2.5 93 1957 Unknown [id number] 2.16.840.1.663019.3.579.2.5 93 1957 Unknown [id number] 2.16.840.1.669550.3.579.2.5 93 1957 Unknown [id number] 2.16.840.1.776479.3.579.2.5 93 1957 Unknown [id number] 2.16.840.1.105927.3.579.2.5 93 1957 Unknown [id number] 2.16.840.1.298630.3.579.2.3 56 1957 Unknown [id number] 2.16.840.1.610560.3.579.2.7 1957 Unknown [id number] 2.16.840.1.076248.3.579.2.7 1957 Unknown [id number] 2.16.840.1.043556.3.579.2.7 1957 Unknown [id number] 2.16.840.1.304593.3.579.2.7 1957 Unknown [id number] 2.16.840.1.817016.3.579.2.7 1957 Unknown [id number] 2.16.840.1.396701.3.579.2.7 1957 Unknown [id number] 2.16.840.1.454567.3.579.2.7 1957 Unknown [id number] 2.16.840.1.062723.3.579.2.7 1957 Unknown [id number] 2.16.840.1.735154.3.579.2.7 1957 Unknown [id number] 2.16.840.1.021962.3.579.2.7 1957 Unknown [id number] 2.16.840.1.203375.3.579.2.7 1957 Unknown [id number] 2.16.840.1.091100.3.579.2.7 1957 Unknown [id number] 2.16.840.1.315671.3.579.2.7 1957 Unknown [id number] 2.16.840.1.829393.3.579.2.7 1957 Unknown [id number] 2.16.840.1.096953.3.579.2.7 Unknown [id number] 2.16.840.1.200419.3.579.2.5 31 Social History Date Type Detail Facility Start: 07-03-2021 End: 04-30-2022 Tobacco smoking status NHIS Ex-smoker [facility] Start: 07-21-1970 End: 07-13-2020 History of tobacco use Current smoker [facility] Start: 07-21-1970 End: 07-21-2020 History of tobacco use Cigarette Smoker [facility] Start: 07-03-2021 End: 04-30-2022 Tobacco use and exposure Smokeless tobacco non-user [facility] Start: 10-11-2021 End: 12-23-2023 Alcohol intake Current drinker of alcohol (finding) [facility] Start: 10-11-2021 End: 11-20-2022 [facility] intake [facility] [facility] Start: 09-25-2021 End: 03-26-2022 Tobacco Comment was smoking on and off fully quit 09/14/21 [facility] Start: 1955 Sex Assigned At Not on file C [facility] Start: 04-27-2021 End: 06-11-2022 Exposure to SARS-CoV-2 (event) Not sure [facility] Start: 10-19-2021 History SDOH Alcohol Comment 4-9 beers per day [facility] Start: 04-16-2021 Tobacco smoking stat [facility] Current some day smoker [facility] Start: 1955 Sex Assigned At Male F [facility] History of tobacco use Passive smoker [facility] Start: 11-20-2022 End: 01-28-2023 Tobacco use panel [facility] Adult Depression Screening Assessment 0 [facility] Start: 07-21-1970 [facility] Clinical Notes 05-28-2021 to 02-18-2024 Telephone Encounter - Denita Rai RN - 02/18/2024 11:44 AM EDTTelephone Encounter - Denita Rai RN - 02/18/2024 11:44 AM EDTTelephone Encounter - Enrique Boland - 02/16/2024 1:21 PM EDT Note Date & Type Note Facility 02-18-2024 Telephone encounter Note FYI: Pt reports that he had increased shortness of breath yesterday which improved after taking a couple Xanax. Pt's Xanax prescribed per his PCP. Advised he contact his PCP and request they adjust his Xanax dose. Pt verbalizes understanding and agrees. Pt reports his Percocet is no longer controlling his pain. Instructed pt to contact [facility] regarding his pain and medication. Pt confirms that he has [facility] phone number and agrees to contact the [facility] RN[facility]. Denita Rai RN [facility] Work Phone: 02-18-2024 Miscellaneous Notes FYI: Pt reports that he had increased shortness of breath yesterday which improved after taking a couple Xanax. Pt's Xanax prescribed per his PCP. Advised he contact his PCP and request they adjust his Xanax dose. Pt verbalizes understanding and agrees. Pt reports his Percocet is no longer controlling his pain. Instructed pt to contact [facility] regarding his pain and medication. Pt confirms that he has [facility] phone number and agrees to contact the [employer] med RNCC. Denita Rai RN documented in this encounter [facility] 02-16-2024 Telephone encounter Note Agree the patient will need to be seen by pulmonary to determine the need and what type of home oxygen is indicated. [facility] 02-16-2024 Miscellaneous Notes Agree the patient will need to be seen by pulmonary to determine the need and what type of home oxygen is indicated. Pt calls stating he would like home oxygen because his breathing treatments and steroids aren't making much of a difference in his breathing. These were prescribed by his PCP. Pt is scheduled for pulm at [facility] but not until the end of February. Encouraged pt to contact PCP for home oxygen, as well as a follow up from recent hospital visit and previous steroid orders by them. Pt verbalized understanding and states that makes jade sense to him anyhow. Please advise if you have other recommendations. Bernadine Rodriguez RN documented in this encounter [facility] 02-16-2024 Telephone encounter Note Pt calls stating he would like home oxygen because his breathing treatments and steroids aren't making much of a difference in his breathing. These were prescribed by his PCP. Pt is scheduled for pulm at [facility] but not until the end of February. Encouraged pt to contact PCP for home oxygen, as well as a follow up from recent hospital visit and previous steroid orders by them. Pt verbalized understanding and states that makes jade sense to him anyhow. Please advise if you have other recommendations. Bernadine Rodriguez RN [facility] Work Phone: 02-16-2024 Telephone encounter Note Spoke to Pérez, gave him information on Pulmonogist appt in [place]. Transferred to Triage ( out of office) to ask about oxygen. [facility] 02-16-2024 Miscellaneous Notes Spoke to Pérez, gave him information on Pulmonogist appt in [place]. Transferred to Triage ( out of office) to ask about oxygen. 3rd attempt to get a hold of patient to give date & time of appointment with [facility] Art Coordinator, however no answer & vm full. [place] Tried calling patient again no answer & vm full. [place] Tried calling patient to give date & time of health safety and environment manager appointment no answer & vm full. Will try back later. [place] Spoke to Ton at [facility] Pulmonology in [place] at [phone] & scheduled the soonest appointment in [facility] on 03/15/2024@[address] Adler. [place] Pt would prefer to see [facility] Art Coordinator. Clerical: Please refer. Thanks! Denita Rai RN Order signed. Options would be Dr. Wilson at [facility] or Dr. Rene at [facility] Also we can refer him to [facility] pulmonary in [place]. Pt notified and verbalizes understanding. BRM: Pt asks if you will refer him to a health safety and environment manager. Order pended if you approve. Denita Rai RN Agree with plan. Thanks, BRM Pt c/o increased shortness of breath x 1 weeks. Reports his PCP prescribed him methylprednisolone on Friday. Pt took for 2 days and then forgot to take after that. Went to ER on Friday. Records requested. Per pt, he was given a nebulizer treatment and sent home w/ a Zpack. Pt denies chest pain or pressure. No cough. Advised he resume the steroids as prescribed by his PCP. Pt agrees. Do you have any other recommendations? Denita Rai RN documented in this encounter [facility] 2024 Telephone encounter Note 3rd attempt to get a hold of patient to give date & time of appointment with [facility] Art Coordinator, however no answer & vm full. [place] Caio [facility] 02-12-2024 Telephone encounter Note Tried calling patient again no answer & vm full. [place] Caio [facility] 02-12-2024 Telephone encounter Note Tried calling patient to give date & time of health safety and environment manager appointment no answer & vm full. Will try back later. [place] Marguerite Caio [facility] 02-12-2024 Telephone encounter Note Spoke to Ton at [facility] Pulmonology in [place] at [phone] & scheduled the soonest appointment in [facility] on 03/15/2024@[address] Adler. [place] [facility] 02-10-2024 Telephone encounter Note Pt would prefer to see [facility] Art Coordinator. Clerical: Please refer. Thanks! Denita Rai, KERRY [facility] 02-10-2024 Telephone encounter Note Order signed. Options would be Dr. Wilson at [facility] or Dr. Rene at [facility] Also we can refer him to [facility] pulmonary in [place]. [facility] 02-10-2024 Telephone encounter Note Pt notified and verbalizes understanding. BRM: Pt asks if you will refer him to a health safety and environment manager. Order pended if you approve. Denita Rai RN [facility] 02-10-2024 Telephone encounter Note Agree with plan. Jeannie, BRM [facility] 02-10-2024 Telephone encounter Note Pt c/o increased shortness of breath x 1 weeks. Reports his PCP prescribed him methylprednisolone on Friday. Pt took for 2 days and then forgot to take after that. Went to ER on Friday. Records requested. Per pt, he was given a nebulizer treatment and sent home w/ a Zpack. Pt denies chest pain or pressure. No cough. Advised he resume the steroids as prescribed by his PCP. Pt agrees. Do you have any other recommendations? Denita Rai RN [facility] 02-03-2024 History of Present illness Narrative PATIENT NAME: Pedro Gu DATE: 02/03/2024 PRIMARY CARE PHYSICIAN: Dr. Christina Azul OTHER PHYSICIANS: Dr. Verito Whelan, Dr. Marianne Fields, Dr. Yo Tse ([facility] ENT) Christina Tavarez (Elements copied from Dr. Grigsby's note dated December 23, 2023, have been reviewed and updated where appropriate, and all reflect current assessment and medical decision making during today's encounter, February 03, 2024) CC: This is a 68 year old male with metastatic lung cancer, seen for scheduled follow-up and continued treatment. INTERIM HISTORY: Pérez returns for follow up. He remains on Lumakras 3 pills daily. Tolerating it well. He does report that his left upper arm/shoulder pain persists and may even be worse since getting pallitive radiation in December 2023. He does see palliative medicine for this. Today he reports pain and swelling in his left arm. It has been present for a couple of months but has been getting worse. He describes it as an ache. Otherwise his breathing is stable and he has no other symptoms. MEDICATIONS: Current Outpatient Medications Medication Sig traZODone (DESYREL) 50 mg tablet Take 1 tablet by mouth daily at bedtime. fentaNYL (DURAGESIC) 50 mcg/hr Apply 1 Patch as directed every 72 hours for 30 days. Do not cut patch. naloxone 4 mg/actuation nasal spray (NARCAN) Use 1 spray in one nostril as needed for overdose. May repeat every 2 to 3 min in alternating nostrils until medical assistance is available DULoxetine (CYMBALTA) 30 mg capsule Take 1 capsule by mouth once daily. pregabalin (LYRICA) 75 mg capsule Take 1 capsule by mouth three times a day for 30 days. oxyCODONE IR (ROXICODONE) 10 mg tab Take 1-2 tablets by mouth every 4 hours as needed for pain for up to 30 days. levothyroxine (SYNTHROID) 75 mcg tablet Take 1 tablet by mouth once daily. dexAMETHasone (DECADRON) 4 mg tablet Take 1 tablet by mouth two times a day with meals. (Patient taking differently: Take 4 mg by mouth daily with breakfast.) sotorasib (LUMAKRAS) 320 mg tablet Take 3 tablets by mouth once daily. ALPRAZolam (XANAX) 0.25 mg tablet Take 0.25 mg by mouth three times a day as needed. ondansetron (ZOFRAN) 8 mg tablet Take 1 tablet by mouth every 8 hours as needed for nausea/vomiting. metoprolol tartrate, short acting, (LOPRESSOR) 25 mg tablet Take 50 mg by mouth twice daily. isosorbide mononitrate ER (IMDUR) 30 mg 24 hr tablet Take 30 mg by mouth once daily. cilostazol (PLETAL) 100 mg tablet Take 1 tablet by mouth twice daily. clopidogrel (PLAVIX) 75 mg tablet Take 1 tablet by mouth once daily. aspirin 81 mg chewable tablet Take 81 mg by mouth once daily. atorvastatin (LIPITOR) 40 mg tablet Take 40 mg by mouth once daily. No current facility-administered medications for this visit. ALLERGIES: ALLERGIES No Known Allergies PAST MEDICAL HISTORY: PAST MEDICAL HISTORY Diagnosis Date Carotid artery disease (HCC) bilateral COPD (chronic obstructive pulmonary disease) (HCC) Heart attack (HCC) History of non-ST elevation myocardial infarction (NSTEMI) HTN (hypertension) Hypertension 09/25/2021 Lung cancer (HCC) Malignant neoplasm of lower lobe of left lung (HCC) Peripheral arterial disease (HCC) 2019 R REGISTRATION COORDINATOR stent PAST SURGICAL HISTORY: PAST SURGICAL HISTORY Procedure Laterality Date BACK SURGERY HX 2019 CABG (4) VEIN GRAFTS & ARTERIAL GRAFT(S) 2016 LOWER EXTREMITY FUNNEL SETTER W/WO STENT Right 2019 right common femoral artery stent REMOVAL OF LUNG,LOBECTOMY Left 09/26/2021 VATS left upper lung wedge resection, completion lobectomy, lymph node dissection, application of Progel to staple line, intercostal nerve blocks for cancer FAMILY HISTORY: FAMILY HISTORY Problem Relation Age of Onset Lung Cancer Father Heart Attack Father Coronary Artery Disease Father SOCIAL HISTORY: Social History Tobacco Use Smoking status: Former Packs/day: 2.00 Years: 50.00 Additional pack years: 0.00 Total pack years: 100.00 Types: Cigarettes Start date: 1968 Passive exposure: Past Smokeless tobacco: Never Tobacco comments: was smoking on and off fully quit 09/14/21 Vaping Use Vaping Use: Never used Substance Use Topics Alcohol use: Yes Alcohol/week: 30.0 standard drinks of alcohol Types: 30 Cans of Beer (12oz) per week Comment: 4-9 beers per day Drug use: Never REVIEW OF SYSTEMS: General: No weight loss, malaise or fevers. HEENT: Negative for frequent or significant headaches. No changes in hearing or vision, no nose bleeds or other nasal problems. Respiratory: Negative for wheezing. Chronic shortness of breath. See HPI. Cardiovascular: Negative for chest pain, leg swelling or palpitations. GI: Negative for abdominal discomfort, blood in stools or black stools or change in bowel habits. : No history of dysuria, frequency or incontinence. Musculoskeletal: Negative for joint pain or swelling and muscle pain. Skin: Negative for rash, lesions and itching. Hematology/Lymphology: Negative for prolonged bleeding, bruising easily or swollen nodes. Neuro: No history of headaches, syncope, paralysis, seizures or tremors. Extremities: +pain and swelling to left arm PHYSICAL EXAM: BP 122/74 Pulse 92 Temp 36.3 C (97.3 F) (Temporal) Resp 18 Ht 168.3 cm (5' 6.26 ) Wt 52.2 kg (115 lb 1.3 oz) SpO2 99% BMI 18.43 kg/m ECOG 1 Exam limited to gross visualization where appropriate due to COVID-19. Gen.: This is an age-appropriate patient in no acute distress. Head: Appears atraumatic with no visible lesions. Eyes: Pupils equally round and reactive to light, extraocular muscles are intact. Neck: Supple. Respiratory: Appears to be respiring comfortably. Neurologic: Nonfocal to gross visualization. Alert and oriented 3. Psychiatric: No evidence of inappropriate anxiety or depression. Skin: Visible areas of skin without lesions, wounds or petechiae. Extremities: left lower arm with swelling. Hand with some discoloration that resolved during the exam. Radial pulse is palpable and strong. 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 - Visceral pleural invasion present. - Tumor invades into parietal pleural/chest wall adipose tissue. - Arterial invasion present. - Five hilar/peribronchial lymph nodes, negative for tumor (0/5). - Emphysema with patchy smoking-related interstitial fibrosis. - Margins negative. Molecular markers: RET rearrangement negative, ROS1 negative, BRAF negative, EGFR negative, HER-2 negative, KRAS G12C positive, ALK 1 negative, PD-L1 95% LABS: Hemoglobin (g/dL) Date Value 02/03/2024 12.7 07/03/2021 14.2 Hematocrit (%) Date Value 02/03/2024 38.1 07/03/2021 41.8 WBC (k/uL) Date Value 02/03/2024 5.96 07/03/2021 5.83 Platelet Count (k/uL) Date Value 02/03/2024 201 07/03/2021 265 RADIOLOGY/OTHER STUDIES: 11/25/2023 PET scan IMPRESSION: HEAD/NECK: * Intensely hypermetabolic focus in the right tonsillar/oropharyngeal region. ENT evaluation recommended. CHEST: Scan findings suggest Interval progression. * Hypermetabolic left lower lobe lung nodule increased in size and FDG activity from prior PET scan. Additional nodules stable to some interval increase compared to prior PET scan. * Interval increase in the right hilar uptake suspicious for metastases. * Persistent hypermetabolic left subpectoral region mass. ABDOMEN/PELVIS: * No FDG avid neoplastic process. MUSCULOSKELETAL: * No FDG avid neoplastic process. 10/21/2023 CT chest IMPRESSION: 1. Numerous bilateral pulmonary nodules. The largest nodule in the right lower lobe has increased in size when compared to prior exam. Other nodules are overall stable when compared to prior studies. 2. No evidence of intrathoracic lymphadenopathy. 09/15/2023 PET scan IMPRESSION: HEAD/NECK: * Hypermetabolic focus in the right tonsillar region with interval decreased FDG activity. * No hypermetabolic lymphadenopathy. CHEST: Interval improvement in the previously present hypermetabolic bilateral lung nodules with decreased size and FDG activity. Residual smaller nodules with mild/moderate uptake. Mild residual uptake in the right hilum. * Hypermetabolic left subpectoral soft tissue mass with interval decrease in FDG activity. ABDOMEN/PELVIS: * No FDG avid neoplastic process. MUSCULOSKELETAL: * No FDG avid neoplastic process. 05/12/2023 PET scan IMPRESSION: 1. NECK: * Increased size and hypermetabolism of right tonsillar mass, concerning for neoplasm. * New diffuse thyroid hypermetabolism, related to thyroiditis and possibly a side effect of the immune checkpoint inhibitor. 2. CHEST: * Increased size and hypermetabolism of left subpectoral node/mass. * Increased size, number, and hypermetabolism of bilateral metastatic pulmonary nodules.. 3. ABDOMEN/PELVIS: * No FDG avid neoplastic process. . 4. EXTREMITIES/SKELETON: * No suspicious FDG avid osseous lesion. 01/17/2023 PET scan IMPRESSION: 1. Neck: Persistent hypermetabolic focus in the right tonsillar region. 2. Chest: Interval decrease with decreased FDG activity associated with the left subpectoral region soft tissue mass. Mild residual uptake. Multiple persistent hypermetabolic bilateral lung nodules suspicious for metastases. 3. Abdomen and pelvis: No evidence of FDG avid neoplastic process 4. Skeleton: No hypermetabolic osseous lesions 01/03/2023 Chest CTA ([facility]) Bilateral hilar soft tissue nodules concerning for malignant lymph nodes. Developing nodularity of the right lung with the largest measuring up to 14 mm. 10/10/2022 PET scan IMPRESSION: 1. Neck: hypermetabolic focus in the right tonsillar/parapharyngeal region, similar to prior. 2. Chest: Hypermetabolic left subpectoral region mass. Hypermetabolic bilateral lung nodules. Findings concerning for progression of neoplastic process. 3. Abdomen and pelvis: No evidence of FDG avid neoplastic process 4. Skeleton: No hypermetabolic osseous lesions 09/17/2022 CT chest IMPRESSION: 1. Multiple new and enlarging bilateral pulmonary nodules, highly suspicious for progression of disease. 2. No evidence of new bulky intrathoracic lymphadenopathy. 09/17/2022 CT abdomen/pelvis IMPRESSION: 1. No evidence of abdominal or pelvic metastatic disease. 2. Findings compatible with a subcapsular hematoma within the spleen. 3. No evidence of abdominal or pelvic lymphadenopathy. 06/14/2022 CT Chest IMPRESSION: 1. Several indeterminate subcentimeter nodular opacities measuring up to 7 mm, new since 09/25/21. Consider interval follow-up. 2. Other noncalcified subcentimeter nodular opacities measuring less than 5 mm, stable. 3. New trace loculated left pleural effusion, most likely related to postoperative change. 06/11/2022 Chest xray IMPRESSION: A small loculated left pleural effusion is felt to have progressed in size from the prior study, as above. 04/12/2022 Bone scan ([facility]) Degenerative findings. No evidence of metastatic disease. 05/23/2022 MRI Lumbar Spine Impression: Heterogeneous appearance of the vertebral bodies stable from the prior exam, nonspecific. No enhancing mass. Mild to moderate discogenic changes L2-S1 grossly stable. For minimal stenosis at several levels as detailed. 10/31/2021 Brain MRI IMPRESSION: No evidence of an acute intracranial process. No intracranial enhancing lesion to suggest metastasis. 09/25/2021 CT chest IMPRESSION: Increased peripheral left upper lobe mass with adjacent curvilinear scarlike opacity concerning for neoplasm. No other acute thoracic disease. ASSESSMENT/PLAN: 1. 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 Status post left upper lobectomy and mediastinal lymphadenectomy 09/26/2021. The primary tumor involved the visceral and parietal pleura with evidence of invasion into the chest wall adipose tissue. Surgical margins negative. Postop it was recommended the patient receive adjuvant chemotherapy with cisplatin plus pemetrexed x4 cycles. He received his first cycle on 10/26/2021, and it was complicated by renal dysfunction. Subsequently the patient's treatment was changed to carboplatin plus pemetrexed. He completed his fourth cycle on 01/22/2022. After completing chemotherapy the patient received adjuvant radiation therapy to the left lung 03/26/2022 - 05/01/2022 (5400 cGy in 27 fractions). August 2022 the patient developed increasing cough and shortness of breath. CT scans 09/17/2022 revealed multiple bilateral pulmonary nodules, suspicious for metastases. PET scan 10/10/2022 revealed a hypermetabolic mass in the left subpectoral region plus bilateral pulmonary nodules consistent with metastatic disease. Biopsy was recommended but the patient declined. Subsequently it was elected to start systemic therapy with pembrolizumab, with plans to give 200 mg IV every 3 weeks. Pembrolizumab cycle 1 was given 10/21/2022. Palliative radiation therapy to the left upper chest wall given 10/28/2022 - 11/12/2022. The patient was seen on 11/11/2022 for pembrolizumab cycle 2, but treatment postponed due to elevated LFTs. Pembrolizumab resumed 12/06/2022 and continued every 3 weeks since. Restaging PET scan 01/17/2023 revealed significant improvement in the left chest wall mass, but persistent disease in the lungs bilaterally. Single agent pembrolizumab continued. When seen 04/22/2023 the patient complained of increasing pain over his left upper chest wall. Repeat PET scan 05/12/2023 revealed increased size and hypermetabolism of the right tonsillar mass, increased size and hypermetabolism of the left subpectoral mass, and increased size and number of bilateral lung metastases. Due to progressive disease pembrolizumab was discontinued. The primary tumor NGS analysis was positive for K-huong G12C mutation. For this reason it was elected to change treatment to targeted therapy with Lumakras. Treatment started 05/16/2023. Restaging PET scan 09/15/2023 significantly improved. For evaluation of increasing pain the patient underwent a repeat chest CT 10/21/2023 which revealed slight growth of several pulm nodules, otherwise relatively stable. Repeat PET scan 11/25/2023 revealed several areas of slight progression, otherwise relatively stable. Palliative radiation to left chest wall 12/10/2023-12/24/2023. Continued treatment with Lumakras recommended. On follow up today, the patient is having new swelling and pain of the left arm and well as progressive pain of the left shoulder/chest wall. We will have him get a doppler of his left arm to rule out DVT. I will also arrange for a PET scan to be done to evaluate his disease. He will continue Lumakras for now and see us in 6 weeks for follow up. 2. Carcinoma of the right tonsil Baseline PET and CT neck revealed suspicious abnormalities in the right tonsil. The patient was initially seen by [facility] on 07/26/2021, and clinical evaluation was most consistent with inflammatory/post-infectious findings. The patient was advised to stop chewing tobacco and continue close observation. Follow-up PET 05/12/2023 revealed significant increased size and metabolism of the right tonsillar mass. The patient was reevaluated by [facility] May 2023 and it was felt the mass was malignant. Recommendations were to proceed with palliative radiation therapy to the area. The patient received 5 fractions completed 06/24/2023. Had some dysphagia again in November 2023 and received 5 additional fractions of palliative radiation to the right oropharynx finishing December 24, 2023. Currently minimally symptomatic. Will monitor closely and intervene accordingly if symptoms progress. 3. Centrilobular emphysema (HCC) - ICD9: 492.8, ICD10: J43.2 Long history of tobacco abuse, quit September 2021. 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 4. Coronary artery disease Status post AMI 2015. Status post CABG x 4 in [place] 2015. Currently stable. Continue management per PCP/cardiology. 5. Peripheral vascular disease Status post balloon angioplasty right lower leg 2019. On long-term antiplatelet agents with Plavix and Pletal. Continue management per PCP/vascular surgery. 6. Cancer related pain Severe pain left upper chest wall August 2022, temporarily required Percocet. Pain initially resolved with radiation. February 2023 the patient developed recurrent pain, and currently uses Percocet as needed. Continue follow-up with [facility] palliative medicine. 7. Abnormal LFTs Labs from 11/11/2022 revealed significant elevation of the SGOT and SGPT, most likely transaminitis secondary to OTC supplements (fenbendazole +/- curcumin). After discontinuing these supplements the patient's LFTs normalized, but unfortunately he resumed taking them again on 12/06/2022 and his LFTs worsened. The patient discontinued the medications and his LFTs temporarily normalized. However, current LFTs are elevated. The patient drinks alcohol consistently, and was told to abstain. Will monitor LFTs closely and intervene accordingly if labs continue to worsen. 8. Anxiety - ICD9: 300.00, ICD10: F41.9 Continue Xanax as needed for anxiety. 9. Hypothyroidism due to medication - ICD9: 244.8, E980.5, ICD10: E03.2 Labs obtained 04/22/2023 revealed markedly elevated TSH consistent with immunotherapy induced hypothyroidism. Synthroid started 04/23/2023. Current dose 75 mcg daily as of 05/15/2023. The patient admits to being noncompliant with this medication, and was urged to take daily to improve his overall wellbeing. We will follow TFTs and adjust dosage accordingly. Mindy Pandya PA-C I spent a total of 30 minutes on the date of the service which included preparing to see the patient, [id number] patient care, completing clinical documentation, performing a medically appropriate examination, counseling and educating the patient/family/caregiver, ordering medications, tests, or procedures, independently interpreting results (not separately reported), communicating results to the patient/family/caregiver, and care coordination (not separately reported). documented in this encounter [facility] 02-03-2024 Note [facility] 01-27-2024 Telephone encounter Note Lab orders placed Mindy Pandya PA-C' [facility] 01-27-2024 Miscellaneous Notes Lab orders placed Mindy Pandya PA-C' Patient has an appt on 02/03/24. Would you like additional labs, if so place orders. Thanks. Pavithra Jacinto MA documented in this encounter [facility] 01-27-2024 Telephone encounter Note Patient has an appt on 02/03/24. Would you like additional labs, if so place orders. Thanks. Pavithra Jacinto MA [facility] 01-13-2024 Telephone encounter Note Palliative Medicine Care Coordination Follow up Phone Call Patient identified by name and : Yes Spoke to: patient Nurse calling to follow up on review of pain regimen and pain. Does patient feel an improvement in symptoms: During the day but not when waking up in the morning. Patient reports he has not used his fentanyl patches because he notes the oxycodone is working for his pain most of the time. He says except he has a lot of pain upon getting up out of bed in the morning. Educated on utilizing the long-acting Fentanyl 50 mcg TD patches and how it works to continually give him a little bit of pain medication over the entire 24 hours and change every 3 days. Educated it should help his pain improve when he gets up in the morning and he then can utilize his Oxycodone 10-20 mg tablets every 4 hours as needed for BT pain. We also discussed continuing to take his Cymbalta daily and Pregabalin TID routinely. Patient expressed appreicaton for the call to review this with him. He Just took 2 oxycodone now so will apply the fentanyl patch around 3 pm. Reinforced CURRENT treatment education based on current and anticipated symptoms Teach back method performed: YES Patient verbalizes when to seek medical attention for new/worsening symptoms. Office and on-call numbers reviewed with patient. Julieth Tapia RN January 13, 2024 1:19 PM [facility] 01-13-2024 Miscellaneous Notes Palliative Medicine Care Coordination Follow up Phone Call Patient identified by name and : Yes Spoke to: patient Nurse calling to follow up on review of pain regimen and pain. Does patient feel an improvement in symptoms: During the day but not when waking up in the morning. Patient reports he has not used his fentanyl patches because he notes the oxycodone is working for his pain most of the time. He says except he has a lot of pain upon getting up out of bed in the morning. Educated on utilizing the long-acting Fentanyl 50 mcg TD patches and how it works to continually give him a little bit of pain medication over the entire 24 hours and change every 3 days. Educated it should help his pain improve when he gets up in the morning and he then can utilize his Oxycodone 10-20 mg tablets every 4 hours as needed for BT pain. We also discussed continuing to take his Cymbalta daily and Pregabalin TID routinely. Patient expressed appreicaton for the call to review this with him. He Just took 2 oxycodone now so will apply the fentanyl patch around 3 pm. Reinforced CURRENT treatment education based on current and anticipated symptoms Teach back method performed: YES Patient verbalizes when to seek medical attention for new/worsening symptoms. Office and on-call numbers reviewed with patient. Julieth Tapia RN January 13, 2024 1:19 PM [place]ie calling regarding the fentanyl patches. He states that he hasn't used them, but states that the other medication is helping with the pain. He has to take the medication before he gets out of bed due to the pain. Patient needs clarification on pain regimen. Hannah SAMANIEGO documented in this encounter [facility] 01-13-2024 Telephone encounter Note Okie calling regarding the fentanyl patches. He states that he hasn't used them, but states that the other medication is helping with the pain. He has to take the medication before he gets out of bed due to the pain. Patient needs clarification on pain regimen. Hannah SAMANIEGO [facility] 01-09-2024 Note Addended by: MARYJO GRUBBS on: 01/09/2024 02:09 PM Modules accepted: Orders [facility] 01-09-2024 Miscellaneous Notes Addended by: MARYJO FISH on: 01/09/2024 02:09 PM Modules accepted: Orders Addended by: JULIETH TAPIA on: 01/09/2024 01:20 PM Modules accepted: Orders Palliative Medicine Care Coordination Follow up Phone Call Patient identified by name and : Yes Spoke to: patient Let patient know she can start Fentanyl 50 mcg transdermal patch. Educated this is a routine long-acting pain medication he would change every 3 days. Let him know it can take 24-48 hours sometimes longer for the patch to work fully and he can continue his Oxy IR 10 mg Q4H prn. Let him know once the fentanyl starts working we are hoping he will need to take less of his prn opioid. Confirmed he would like it sent to [facility] pharmacy. Let him know it may need a prior authorization. Patient verbalized understanding. Pended Fentanyl 50 mcg TD patch Requested Prescriptions Pending Prescriptions Disp Refills fentaNYL (DURAGESIC) 50 mcg/hr 10 Patch 0 Sig: Apply 1 Patch as directed every 72 hours for 30 days. Do not cut patch. Signed Prescriptions Disp Refills traZODone (DESYREL) 50 mg tablet 30 tablet 1 Sig: Take 1 tablet by mouth daily at bedtime. Authorizing Provider: MARYJO FISH Please review and advise. Julieth Tapia RN Is he taking duloxetine? He could double the dose to 60 mg po daily if he has been using the 30 mg. We could add on a Transdermal Fentanyl patch, I would start at 50 mcg/ hr. He could still use oxy IR for BTP, my hope is he would not need as much and not have end of dose pain Palliative Medicine Care Coordination Follow up Phone Call Patient identified by name and : Yes Spoke to: patient Nurse calling to follow up on sleep and pain. Does patient feel an improvement in symptoms: No reports pain is causing his insomnia. Discussed with patient reasons he is unable to sleep. He reports his pain is 8/10 most times when trying to sleep. He report the pain continues to be in left shoulder and right arm but says unable to describe the pain. Still having some N/T in his fingers. He feels the last radiation tx did not work and feels he may need another. Feels he may need to go to hospital since his pain is worsening. Currently taking for pain. -Oxycodone IR 10 mg 10-20 mg Q4H prn-reports 2 tablets about 6-7 times a day he thinks at least. -Pregablin 75 mg TID, taking 3x daily not helpful. Let patient know that Christina RONAL did sent Trazodone 50 mg tablets to his [facility] pharmacy for insomnia. Let him know to take 1 tablet at bedtime. Educated he needs to ensure he is keeping an accurate pain log so Christina VILLEDA can make adjustment as needed. Let him know we would send to her to review his pain. Reinforced CURRENT treatment education based on current and anticipated symptoms Teach back method performed: YES Patient verbalizes when to seek medical attention for new/worsening symptoms. Office and on-call numbers reviewed with patient. Julieth Tapia RN January 09, 2024 11:47 AM We can try Trazodone 50 mg at bedtime. Sent to [facility] in [place] Pt calls stating he's been having problems sleeping and would like something for this. States I've tried it all when asked if he's tried melatonin, tylenol pm, or benadryl. Please advise Bernadine Rodriguez RN documented in this encounter [facility] 01-09-2024 Note Addended by: JULIETH CORMIER on: 01/09/2024 01:20 PM Modules accepted: Orders [facility] 01-09-2024 Telephone encounter Note Palliative Medicine Care Coordination Follow up Phone Call Patient identified by name and : Yes Spoke to: patient Let patient know she can start Fentanyl 50 mcg transdermal patch. Educated this is a routine long-acting pain medication he would change every 3 days. Let him know it can take 24-48 hours sometimes longer for the patch to work fully and he can continue his Oxy IR 10 mg Q4H prn. Let him know once the fentanyl starts working we are hoping he will need to take less of his prn opioid. Confirmed he would like it sent to [facility] pharmacy. Let him know it may need a prior authorization. Patient verbalized understanding. Pended Fentanyl 50 mcg TD patch Requested Prescriptions Pending Prescriptions Disp Refills fentaNYL (DURAGESIC) 50 mcg/hr 10 Patch 0 Sig: Apply 1 Patch as directed every 72 hours for 30 days. Do not cut patch. Signed Prescriptions Disp Refills traZODone (DESYREL) 50 mg tablet 30 tablet 1 Sig: Take 1 tablet by mouth daily at bedtime. Authorizing Provider: MARYJO FISH Please review and advise. Julieth Tapia RN [facility] 01-09-2024 Telephone encounter Note Is he taking duloxetine? He could double the dose to 60 mg po daily if he has been using the 30 mg. We could add on a Transdermal Fentanyl patch, I would start at 50 mcg/ hr. He could still use oxy IR for BTP, my hope is he would not need as much and not have end of dose pain [facility] 01-09-2024 Telephone encounter Note Palliative Medicine Care Coordination Follow up Phone Call Patient identified by name and : Yes Spoke to: patient Nurse calling to follow up on sleep and pain. Does patient feel an improvement in symptoms: No reports pain is causing his insomnia. Discussed with patient reasons he is unable to sleep. He reports his pain is 8/10 most times when trying to sleep. He report the pain continues to be in left shoulder and right arm but says unable to describe the pain. Still having some N/T in his fingers. He feels the last radiation tx did not work and feels he may need another. Feels he may need to go to hospital since his pain is worsening. Currently taking for pain. -Oxycodone IR 10 mg 10-20 mg Q4H prn-reports 2 tablets about 6-7 times a day he thinks at least. -Pregablin 75 mg TID, taking 3x daily not helpful. Let patient know that Christina VILLEDA did sent Trazodone 50 mg tablets to his [facility] pharmacy for insomnia. Let him know to take 1 tablet at bedtime. Educated he needs to ensure he is keeping an accurate pain log so Christina VILLEDA can make adjustment as needed. Let him know we would send to her to review his pain. Reinforced CURRENT treatment education based on current and anticipated symptoms Teach back method performed: YES Patient verbalizes when to seek medical attention for new/worsening symptoms. Office and on-call numbers reviewed with patient. Julieth Tapia RN January 09, 2024 11:47 AM T [facility] 01-09-2024 Telephone encounter Note We can try Trazodone 50 mg at bedtime. Sent to [facility] in [place] T [facility] 01-09-2024 Telephone encounter Note Pt calls stating he's been having problems sleeping and would like something for this. States I've tried it all when asked if he's tried melatonin, tylenol pm, or benadryl. Please advise Bernadine Rodriguez RN [facility] Work Phone: 12-26-2023 Telephone encounter Note Palliative Medicine Care Coordination Follow up Phone Call Patient identified by name and : Yes Spoke to: patient Spoke to patient and let him know his Pregablin PA was approved and we initiated the PA for his Oxycodone and still waiting on the determination from his insurance. Patient expressed appreciation for the update. He says his pain is currently fine since he is laying in his chair not really moving. He plans to take a nap. Let him know to call if he has any other questions or concerns. Patient confirmed having contact numbers for the office and recreation program coordinator. Julieth Tapia RN December 26, 2023 3:06 PM [facility] 12-26-2023 Miscellaneous Notes Palliative Medicine Care Coordination Follow up Phone Call Patient identified by name and : Yes Spoke to: patient Spoke to patient and let him know his Pregablin PA was approved and we initiated the PA for his Oxycodone and still waiting on the determination from his insurance. Patient expressed appreciation for the update. He says his pain is currently fine since he is laying in his chair not really moving. He plans to take a nap. Let him know to call if he has any other questions or concerns. Patient confirmed having contact numbers for the office and recreation program coordinator. Julieth Tapia RN December 26, 2023 3:06 PM [employer] Gu is calling today regarding Insurance Authorization for oxycodone. Patient states the pharmacy also told him he needs something else but he could not remember. Patient has been identified by name and birthdate. Requesting response back: N/A, no action needed [phone] (cell) Yolande Bishop December 26, 2023 documented in this encounter [facility] 12-26-2023 Miscellaneous Notes Prior Authorization Documentation Prior authorization requested for: MEDICATION Oxycodone IR 10 mg tablets Submitted via Cover My Meds/[employer] [id number] Insurance Company Name: [facility] Name: [facility] and Authorization approval #: AWAITING DETERMINATION Dates of Approval: from ? to ? Patient Assistance Needed: No Time Spent 10 Julieth Tapia RN December 26, 2023 documented in this encounter [facility] 12-26-2023 Telephone encounter Note Prior Authorization Documentation Prior authorization requested for: MEDICATION Oxycodone IR 10 mg tablets Submitted via Cover [employer] Meds/[employer] [id number] Insurance Company Name: [facility] Name: [facility] and Authorization approval #: AWAITING DETERMINATION Dates of Approval: from ? to ? Patient Assistance Needed: No Time Spent 10 Julieth Tapia RN December 26, 2023 [facility] 12-26-2023 Telephone encounter Note Prior Authorization Documentation Prior authorization requested for: MEDICATION Pregablin 75 mcg capsules Submitted via Cover My Meds/[employer] [id number] Insurance Company Name: [employer] [facility] and pproved today Your request has been approved Authorization Expiration Date: 12/26/2023- 07/20/2024. Pharmacy updated. Time Spent 10 Julieth Tapia RN December 26, 2023 [facility] 12-26-2023 Miscellaneous Notes Prior Authorization Documentation Prior authorization requested for: MEDICATION Pregablin 75 mcg capsules Submitted via Cover My Meds/[employer] [id number] Insurance Company Name: [employer] [facility] Name: [facility] and pproved today Your request has been approved Authorization Expiration Date: 12/26/2023- 07/20/2024. Pharmacy updated. Time Spent 10 Julieth Tapia RN December 26, 2023 documented in this encounter [facility] 12-26-2023 Telephone encounter Note Pedro Gu is calling today regarding Insurance Authorization for oxycodone. Patient states the pharmacy also told him he needs something else but he could not remember. Patient has been identified by name and birthdate. Requesting response back: N/A, no action needed [phone] (cell) Yolande Bishop December 26, 2023 [facility] 12-26-2023 Telephone encounter Note Palliative Medicine Care Coordination Follow up Phone Call Patient identified by name and : Yes Spoke to: patient Nurse calling to follow up on: Provider recommendations. Collaborated with Christina Fish CNP. We discussed to stop the Cymbalta since patient reported that it caused worsening depression. Stop Gabapentin. Start Lyrica 75 mg capsule. Take 1 capsule 3 x daily routinely. Increase oxycodone IR 10 mg tablets taking 1-2 tablets(10-20 mg) every 4 hours as needed and continue steroids as recommended by oncology. Let patient know the prescription for Lyrica and Oxy were sent to his [facility] pharmacy. Nurse encouraged patient to call with any questions/concerns/symptom related issues. Patient confirmed having contact numbers for the office and recreation program coordinator. [facility] 12-26-2023 Miscellaneous Notes Palliative Medicine Care Coordination Follow up Phone Call Patient identified by name and : Yes Spoke to: patient Nurse calling to follow up on: Provider recommendations. Collaborated with Christina Fish CNP. We discussed to stop the Cymbalta since patient reported that it caused worsening depression. Stop Gabapentin. Start Lyrica 75 mg capsule. Take 1 capsule 3 x daily routinely. Increase oxycodone IR 10 mg tablets taking 1-2 tablets(10-20 mg) every 4 hours as needed and continue steroids as recommended by oncology. Let patient know the prescription for Lyrica and Oxy were sent to his [facility] pharmacy. Nurse encouraged patient to call with any questions/concerns/symptom related issues. Patient confirmed having contact numbers for the office and recreation program coordinator. Addended by: MARYJO FISH on: 12/26/2023 12:23 PM Modules accepted: Orders He is due for refills I made some changes I sent them to his pharmacy - Stop Gabapentin - Start Lyrica 75 mg po tid - Start Duloxetine 30 mg po daily - during pain crisis he can use OXY IR 10-20 mg po every 4 hours - Agree with Dex Pt notified, verbalizes understanding, and states that he has plenty of dex at home. Denita Sessler, RN Images from the original note were not included. Jyoti Limon MD You5 minutes ago (10:53 AM) Yes seemed to work before. Thank.s Pt was originally on Dexamethasone 4 mg BID. Is this the dose you'd like him resume? Denita Rai RN Images from the original note were not included. Jyoti Limon MD You; [facility] Nurse Pool4 minutes ago (10:41 AM) Consider reinitiating steroids. Radiation may have ongoing improvement with time. 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 JEROME: Please see Julieth's message below. Thank you! Denita Rai RN Care Coordination Triage Note [facility] Situation: Received page that patient called saying his pain was over the top. Background: Disease, current pertinent medications/treatmentsMalignant neoplasm of upper lobe of left lung. Assessment: Patient reports left shoulder pain 02/27. He says it radiates now up his neck continued pain down left arm. He reports walking and the more he walked it eased up a bit. He says pain not relieved by current pain regimen. He is not sleeping well due to pain. He last took his oxy and gabapentin about 30-40 minutes says it take an hour to work and only takes the edge off shortly before the pain increases. Patient asking for something more to help with the pain and if more radiation treatments could help. Let him know we would send to his oncology team to let then know you are inquiring about more radiation treatments. Current pain regimen and usage: - Gabapentin 400 mg po tid, routine med not prn, taking 3x daily - Oxycodone 15 mg po every 4 hours prn pain, taking 5-6 x daily. - Duloxetine 30 mg po daily, no longer ordered, say made him feel more depressed. Recommendations: Per Christina Fish CNP's recommendations. Julieth Tapia RN December 26, 2023 8:19 AM documented in this encounter [facility] 12-26-2023 Note Addended by: MARYJO GRUBBS on: 12/26/2023 12:23 PM Modules accepted: Orders [facility] 12-26-2023 Telephone encounter Note He is due for refills I made some changes I sent them to his pharmacy - Stop Gabapentin - Start Lyrica 75 mg po tid - Start Duloxetine 30 mg po daily - during pain crisis he can use OXY IR 10-20 mg po every 4 hours - Agree with Dex [facility] 12-26-2023 Telephone encounter Note Pt notified, verbalizes understanding, and states that he has plenty of dex at home. Denita Rai RN [facility] Work Phone: 12-26-2023 Telephone encounter Note Images from the original note were not included. Jyoti Limon MD You5 minutes ago (10:53 AM) Yes seemed to work before. Thank.s [facility] 12-26-2023 Telephone encounter Note Pt was originally on Dexamethasone 4 mg BID. Is this the dose you'd like him resume? Denita Rai RN [facility] 12-26-2023 Telephone encounter Note Images from the original note were not included. Jyoti Limon MD You; [facility] Nurse Pool4 minutes ago (10:41 AM) Consider reinitiating steroids. Radiation may have ongoing improvement with time. 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 [facility] 12-26-2023 Telephone encounter Note JEROME: Please see Julieth's message below. Thank you! Denita Rai RN T [facility] 12-26-2023 Telephone encounter Note Care Coordination Triage Note [facility] [facility] Situation: Received page that patient called saying his pain was over the top. Background: Disease, current pertinent medications/treatmentsMalignant neoplasm of upper lobe of left lung. Assessment: Patient reports left shoulder pain 02/27. He says it radiates now up his neck continued pain down left arm. He reports walking and the more he walked it eased up a bit. He says pain not relieved by current pain regimen. He is not sleeping well due to pain. He last took his oxy and gabapentin about 30-40 minutes says it take an hour to work and only takes the edge off shortly before the pain increases. Patient asking for something more to help with the pain and if more radiation treatments could help. Let him know we would send to his oncology team to let then know you are inquiring about more radiation treatments. Current pain regimen and usage: - Gabapentin 400 mg po tid, routine med not prn, taking 3x daily - Oxycodone 15 mg po every 4 hours prn pain, taking 5-6 x daily. - Duloxetine 30 mg po daily, no longer ordered, say made him feel more depressed. Recommendations: Per Christina Fish CNP's recommendations. Julieth Tapia RN December 26, 2023 8:19 AM [facility] 12-24-2023 Telephone encounter Note Pt notified of script. Denita Rai RN [facility] Work Phone: 12-24-2023 Miscellaneous Notes Pt notified of script. Denita Rai RN Patient phones requesting refills as follows: Requested Prescriptions Pending Prescriptions Disp Refills levothyroxine (SYNTHROID) 75 mcg tablet 30 tablet 1 Sig: Take 1 tablet by mouth once daily. Please review and advise. Denita Rai RN documented in this encounter [facility] 12-24-2023 Telephone encounter Note Patient phones requesting refills as follows: Requested Prescriptions Pending Prescriptions Disp Refills levothyroxine (SYNTHROID) 75 mcg tablet 30 tablet 1 Sig: Take 1 tablet by mouth once daily. Please review and advise. Denita Rai RN [facility] 12-24-2023 History of Present illness Narrative [facility] Radiation Oncology Department RADIATION ONCOLOGY - COMPLETION NOTE PATIENT: PEDRO GUDOB: 1955 DATES OF TREATMENT: 12/10/2023 to 12/24/2023 DIAGNOSIS: Lung cancer, left upper lobe, pleomorphic carcinoma, stage IIb [id number], stage IIB AJCC 8th edition (chest wall invasion), PD-L1 95%, KRAS G12C mutation present AREA TREATED: Right Oropharynx Rodeo DELIVERED DOSE: Area: Right Oropharynx with daily CBCT Imaging 2000cGy in 5 fractions, 2 VMAT Rapid Arc Hall, 6X AREA TREATED: Left Chest Wall DELIVERED DOSE: Area: Left Ches twall with daily CBCT Imaging 3000cGy in 10 fractions, Hall, 2 VMAT Rapid Arc Hall, 6X TOTAL: 2000cGy in 5 fractions for R Orphar 3000cGy in 10 fractions for Left Chestwall ELAPSED TIME: 14 days. CLINICAL SUMMARY: The patient tolerated radiation with mild radiation related dermatitis and mucositis as expected. No other issues. He had minimal pain improved in chest area but significant improvement in dysphagia. The patient was able to complete treatment as intended without break interruption or modification of prescription plan. The disease response will be assessed in clinic. The patient will be seen again in 2 weeks for post radiation follow-up. Staff Physician Deon Limon M.D. / SAVANNA 43:38 PM Electronically Signed cc: Dr. Seb Falk , , , , . documented in this encounter [facility] 12-24-2023 Note [facility] 12-22-2023 Note [facility] 12-22-2023 History of Present illness Narrative PATIENT NAME: Pedro Gu DATE: 12/23/2023 PRIMARY CARE PHYSICIAN: Dr. Christina Azul OTHER PHYSICIANS: Dr. Verito Whelan, Dr. Marianne Fields, Dr. Yo Tse ([facility]) Christina Tavarez Portions of this encounter note have been copied from the note from 12/02/2023 and has been updated where appropriate, and reflect my current medical decision making from today. CC: This is a 68 year old male with metastatic lung cancer, seen for scheduled follow-up and continued treatment. INTERIM HISTORY: Since the patient's last visit here he has had no significant medical changes. He remains on Lumakras 3 pills daily, started 05/16/2023, and appears to be tolerating the medication well. He is left upper chest pain is well-controlled with current medications. No new areas of pain. No significant cough or shortness of breath. Overall he feels relatively well with no particular complaints today. MEDICATIONS: Current Outpatient Medications Medication Sig dexAMETHasone (DECADRON) 4 mg tablet Take 1 tablet by mouth two times a day with meals. (Patient taking differently: Take 4 mg by mouth daily with breakfast.) gabapentin (NEURONTIN) 400 mg capsule Take 1 capsule by mouth two times a day for 30 days. OLANZapine (ZYPREXA) 5 mg tablet Take 1 tablet by mouth daily at bedtime. levothyroxine (SYNTHROID) 75 mcg tablet Take 1 tablet by mouth once daily. sotorasib (LUMAKRAS) 320 mg tablet Take 3 tablets by mouth once daily. ALPRAZolam (XANAX) 0.25 mg tablet Take 0.25 mg by mouth three times a day as needed. ondansetron (ZOFRAN) 8 mg tablet Take 1 tablet by mouth every 8 hours as needed for nausea/vomiting. metoprolol tartrate, short acting, (LOPRESSOR) 25 mg tablet Take 50 mg by mouth twice daily. isosorbide mononitrate ER (IMDUR) 30 mg 24 hr tablet Take 30 mg by mouth once daily. cilostazol (PLETAL) 100 mg tablet Take 1 tablet by mouth twice daily. clopidogrel (PLAVIX) 75 mg tablet Take 1 tablet by mouth once daily. aspirin 81 mg chewable tablet Take 81 mg by mouth once daily. atorvastatin (LIPITOR) 40 mg tablet Take 40 mg by mouth once daily. No current facility-administered medications for this visit. ALLERGIES: ALLERGIES No Known Allergies PAST MEDICAL HISTORY: PAST MEDICAL HISTORY Diagnosis Date Carotid artery disease (HCC) bilateral COPD (chronic obstructive pulmonary disease) (HCC) Heart attack (HCC) History of non-ST elevation myocardial infarction (NSTEMI) HTN (hypertension) Hypertension 09/25/2021 Lung cancer (HCC) Malignant neoplasm of lower lobe of left lung (HCC) Peripheral arterial disease (HCC) 2019 R REGISTRATION COORDINATOR stent PAST SURGICAL HISTORY: PAST SURGICAL HISTORY Procedure Laterality Date BACK SURGERY HX 2019 CABG (4) VEIN GRAFTS & ARTERIAL GRAFT(S) 2016 LOWER EXTREMITY FUNNEL SETTER W/WO STENT Right 2019 right common femoral artery stent REMOVAL OF LUNG,LOBECTOMY Left 09/26/2021 VATS left upper lung wedge resection, completion lobectomy, lymph node dissection, application of Progel to staple line, intercostal nerve blocks for cancer FAMILY HISTORY: FAMILY HISTORY Problem Relation Age of Onset Lung Cancer Father Heart Attack Father Coronary Artery Disease Father SOCIAL HISTORY: Social History Tobacco Use Smoking status: Former Packs/day: 2.00 Years: 50.00 Additional pack years: 0.00 Total pack years: 100.00 Types: Cigarettes Start date: 1970 Passive exposure: Past Smokeless tobacco: Never Tobacco comments: was smoking on and off fully quit 09/14/21 Vaping Use Vaping Use: Never used Substance Use Topics Alcohol use: Yes Alcohol/week: 30.0 standard drinks of alcohol Types: 30 Cans of Beer (12oz) per week Comment: 4-9 beers per day Drug use: Never REVIEW OF SYSTEMS: General: No weight loss, malaise or fevers. HEENT: Negative for frequent or significant headaches. No changes in hearing or vision, no nose bleeds or other nasal problems. Respiratory: Negative for wheezing. Chronic shortness of breath. See HPI. Cardiovascular: Negative for chest pain, leg swelling or palpitations. GI: Negative for abdominal discomfort, blood in stools or black stools or change in bowel habits. : No history of dysuria, frequency or incontinence. Musculoskeletal: Negative for joint pain or swelling and muscle pain. Skin: Negative for rash, lesions and itching. Hematology/Lymphology: Negative for prolonged bleeding, bruising easily or swollen nodes. Neuro: No history of headaches, syncope, paralysis, seizures or tremors. PHYSICAL EXAM: BP 137/74 Pulse 71 Temp 36.3 C (97.4 F) (Temporal) Resp 16 Ht 168.3 cm (5' 6.26 ) Wt 55.2 kg (121 lb 11.1 oz) SpO2 99% BMI 19.49 kg/m ECOG 1 Exam limited to gross visualization where appropriate due to COVID-19. Gen.: This is an age-appropriate patient in no acute distress. Head: Appears atraumatic with no visible lesions. Eyes: Pupils equally round and reactive to light, extraocular muscles are intact. Neck: Supple. Mouth: Masked. Respiratory: Appears to be respiring comfortably. Neurologic: Nonfocal to gross visualization. Alert and oriented 3. Psychiatric: No evidence of inappropriate anxiety or depression. Skin: Visible areas of skin without lesions, wounds or petechiae. Positive rash- mainly involving face and upper back. 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 - Visceral pleural invasion present. - Tumor invades into parietal pleural/chest wall adipose tissue. - Arterial invasion present. - Five hilar/peribronchial lymph nodes, negative for tumor (0/5). - Emphysema with patchy smoking-related interstitial fibrosis. - Margins negative. Molecular markers: RET rearrangement negative, ROS1 negative, BRAF negative, EGFR negative, HER-2 negative, KRAS G12C positive, ALK 1 negative, PD-L1 95% LABS: Hemoglobin (g/dL) Date Value 12/23/2023 10.0 07/03/2021 14.2 Hematocrit (%) Date Value 12/23/2023 31.1 07/03/2021 41.8 WBC (k/uL) Date Value 12/23/2023 8.20 07/03/2021 5.83 Platelet Count (k/uL) Date Value 12/23/2023 141 07/03/2021 265 RADIOLOGY/OTHER STUDIES: 11/25/2023 PET scan IMPRESSION: HEAD/NECK: * Intensely hypermetabolic focus in the right tonsillar/oropharyngeal region. ENT evaluation recommended. CHEST: Scan findings suggest Interval progression. * Hypermetabolic left lower lobe lung nodule increased in size and FDG activity from prior PET scan. Additional nodules stable to some interval increase compared to prior PET scan. * Interval increase in the right hilar uptake suspicious for metastases. * Persistent hypermetabolic left subpectoral region mass. ABDOMEN/PELVIS: * No FDG avid neoplastic process. MUSCULOSKELETAL: * No FDG avid neoplastic process. 10/21/2023 CT chest IMPRESSION: 1. Numerous bilateral pulmonary nodules. The largest nodule in the right lower lobe has increased in size when compared to prior exam. Other nodules are overall stable when compared to prior studies. 2. No evidence of intrathoracic lymphadenopathy. 09/15/2023 PET scan IMPRESSION: HEAD/NECK: * Hypermetabolic focus in the right tonsillar region with interval decreased FDG activity. * No hypermetabolic lymphadenopathy. CHEST: Interval improvement in the previously present hypermetabolic bilateral lung nodules with decreased size and FDG activity. Residual smaller nodules with mild/moderate uptake. Mild residual uptake in the right hilum. * Hypermetabolic left subpectoral soft tissue mass with interval decrease in FDG activity. ABDOMEN/PELVIS: * No FDG avid neoplastic process. MUSCULOSKELETAL: * No FDG avid neoplastic process. 05/12/2023 PET scan IMPRESSION: 1. NECK: * Increased size and hypermetabolism of right tonsillar mass, concerning for neoplasm. * New diffuse thyroid hypermetabolism, related to thyroiditis and possibly a side effect of the immune checkpoint inhibitor. 2. CHEST: * Increased size and hypermetabolism of left subpectoral node/mass. * Increased size, number, and hypermetabolism of bilateral metastatic pulmonary nodules.. 3. ABDOMEN/PELVIS: * No FDG avid neoplastic process. . 4. EXTREMITIES/SKELETON: * No suspicious FDG avid osseous lesion. 01/17/2023 PET scan IMPRESSION: 1. Neck: Persistent hypermetabolic focus in the right tonsillar region. 2. Chest: Interval decrease with decreased FDG activity associated with the left subpectoral region soft tissue mass. Mild residual uptake. Multiple persistent hypermetabolic bilateral lung nodules suspicious for metastases. 3. Abdomen and pelvis: No evidence of FDG avid neoplastic process 4. Skeleton: No hypermetabolic osseous lesions 01/03/2023 Chest CTA ([facility]) Bilateral hilar soft tissue nodules concerning for malignant lymph nodes. Developing nodularity of the right lung with the largest measuring up to 14 mm. 10/10/2022 PET scan IMPRESSION: 1. Neck: hypermetabolic focus in the right tonsillar/parapharyngeal region, similar to prior. 2. Chest: Hypermetabolic left subpectoral region mass. Hypermetabolic bilateral lung nodules. Findings concerning for progression of neoplastic process. 3. Abdomen and pelvis: No evidence of FDG avid neoplastic process 4. Skeleton: No hypermetabolic osseous lesions 09/17/2022 CT chest IMPRESSION: 1. Multiple new and enlarging bilateral pulmonary nodules, highly suspicious for progression of disease. 2. No evidence of new bulky intrathoracic lymphadenopathy. 09/17/2022 CT abdomen/pelvis IMPRESSION: 1. No evidence of abdominal or pelvic metastatic disease. 2. Findings compatible with a subcapsular hematoma within the spleen. 3. No evidence of abdominal or pelvic lymphadenopathy. 06/14/2022 CT Chest IMPRESSION: 1. Several indeterminate subcentimeter nodular opacities measuring up to 7 mm, new since 09/25/21. Consider interval follow-up. 2. Other noncalcified subcentimeter nodular opacities measuring less than 5 mm, stable. 3. New trace loculated left pleural effusion, most likely related to postoperative change. 06/11/2022 Chest xray IMPRESSION: A small loculated left pleural effusion is felt to have progressed in size from the prior study, as above. 04/12/2022 Bone scan ([facility]) Degenerative findings. No evidence of metastatic disease. 05/23/2022 MRI Lumbar Spine Impression: Heterogeneous appearance of the vertebral bodies stable from the prior exam, nonspecific. No enhancing mass. Mild to moderate discogenic changes L2-S1 grossly stable. For minimal stenosis at several levels as detailed. 10/31/2021 Brain MRI IMPRESSION: No evidence of an acute intracranial process. No intracranial enhancing lesion to suggest metastasis. 09/25/2021 CT chest IMPRESSION: Increased peripheral left upper lobe mass with adjacent curvilinear scarlike opacity concerning for neoplasm. No other acute thoracic disease. ASSESSMENT/PLAN: 1. 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 Status post left upper lobectomy and mediastinal lymphadenectomy 09/26/2021. The primary tumor involved the visceral and parietal pleura with evidence of invasion into the chest wall adipose tissue. Surgical margins negative. Postop it was recommended the patient receive adjuvant chemotherapy with cisplatin plus pemetrexed x4 cycles. He received his first cycle on 10/26/2021, and it was complicated by renal dysfunction. Subsequently the patient's treatment was changed to carboplatin plus pemetrexed. He completed his fourth cycle on 01/22/2022. After completing chemotherapy the patient received adjuvant radiation therapy to the left lung 03/26/2022 - 05/01/2022 (5400 cGy in 27 fractions). August 2022 the patient developed increasing cough and shortness of breath. CT scans 09/17/2022 revealed multiple bilateral pulmonary nodules, suspicious for metastases. PET scan 10/10/2022 revealed a hypermetabolic mass in the left subpectoral region plus bilateral pulmonary nodules consistent with metastatic disease. Biopsy was recommended but the patient declined. Subsequently it was elected to start systemic therapy with pembrolizumab, with plans to give 200 mg IV every 3 weeks. Pembrolizumab cycle 1 was given 10/21/2022. Palliative radiation therapy to the left upper chest wall given 10/28/2022 - 11/12/2022. The patient was seen on 11/11/2022 for pembrolizumab cycle 2, but treatment postponed due to elevated LFTs. Pembrolizumab resumed 12/06/2022 and continued every 3 weeks since. Restaging PET scan 01/17/2023 revealed significant improvement in the left chest wall mass, but persistent disease in the lungs bilaterally. Single agent pembrolizumab continued. When seen 04/22/2023 the patient complained of increasing pain over his left upper chest wall. Repeat PET scan 05/12/2023 revealed increased size and hypermetabolism of the right tonsillar mass, increased size and hypermetabolism of the left subpectoral mass, and increased size and number of bilateral lung metastases. Due to progressive disease pembrolizumab was discontinued. The primary tumor NGS analysis was positive for K-huong G12C mutation. For this reason it was elected to change treatment to targeted therapy with Lumakras. Treatment started 05/16/2023. Restaging PET scan 09/15/2023 significantly improved. For evaluation of increasing pain the patient underwent a repeat chest CT 10/21/2023 which revealed slight growth of several pulm nodules, otherwise relatively stable. Repeat PET scan 11/25/2023 revealed several areas of slight progression, otherwise relatively stable. Continued treatment with Lumakras recommended. On follow-up today the patient is stable. He will continue as is with his current therapy. Return for follow-up and labs in 6 weeks. 2. Carcinoma of the right tonsil Baseline PET and CT neck revealed suspicious abnormalities in the right tonsil. The patient was initially seen by [facility] on 07/26/2021, and clinical evaluation was most consistent with inflammatory/post-infectious findings. The patient was advised to stop chewing tobacco and continue close observation. Follow-up PET 05/12/2023 revealed significant increased size and metabolism of the right tonsillar mass. The patient was reevaluated by [facility] May 2023 and it was felt the mass was malignant. Recommendations were to proceed with palliative radiation therapy to the area. The patient received 5 fractions completed 06/24/2023. Currently minimally symptomatic. Will monitor closely and intervene accordingly if symptoms progress. 3. Centrilobular emphysema (HCC) - ICD9: 492.8, ICD10: J43.2 Long history of tobacco abuse, quit September 2021. 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 4. Coronary artery disease Status post AMI 2015. Status post CABG x 4 in [place] 2015. Currently stable. Continue management per PCP/cardiology. 5. Peripheral vascular disease Status post balloon angioplasty right lower leg 2019. On long-term antiplatelet agents with Plavix and Pletal. Continue management per PCP/vascular surgery. 6. Cancer related pain Severe pain left upper chest wall August 2022, temporarily required Percocet. Pain initially resolved with radiation. February 2023 the patient developed recurrent pain, and currently uses Percocet as needed. Continue follow-up with [facility] palliative medicine. 7. Abnormal LFTs Labs from 11/11/2022 revealed significant elevation of the SGOT and SGPT, most likely transaminitis secondary to OTC supplements (fenbendazole +/- curcumin). After discontinuing these supplements the patient's LFTs normalized, but unfortunately he resumed taking them again on 12/06/2022 and his LFTs worsened. The patient discontinued the medications and his LFTs temporarily normalized. However, current LFTs are elevated. The patient drinks alcohol consistently, and was told to abstain. Will monitor LFTs closely and intervene accordingly if labs continue to worsen. 8. Anxiety - ICD9: 300.00, ICD10: F41.9 Continue Xanax as needed for anxiety. 9. Hypothyroidism due to medication - ICD9: 244.8, E980.5, ICD10: E03.2 Labs obtained 04/22/2023 revealed markedly elevated TSH consistent with immunotherapy induced hypothyroidism. Synthroid started 04/23/2023. Current dose 75 mcg daily as of 05/15/2023. The patient admits to being noncompliant with this medication, and was urged to take daily to improve his overall wellbeing. We will follow TFTs and adjust dosage accordingly. Pito Grigsby MD documented in this encounter [facility] 12-22-2023 Note [facility] 12-22-2023 History of Present illness Narrative Radiation Oncology - On Treatment Review (OTR) Note PATIENT NAME: Pedro Gu PATIENT DIAGNOSIS: Lung cancer, non-small cell with progression left upper chest wall as well as tonsillar involvement COURSE: palliative AREA TREATED: Right tonsil CURRENT DOSE: 1600 cGy in 4 fx PLANNED DOSE: 2000 cGy in 5 fx AREA TREATED: Left upper chest wall CURRENT DOSE: 2400 cGy in 8 fx PLANNED DOSE: 3000 cGy in 10 fx SUBJECTIVE: Patient feels pain is better. Has mild to moderate sore throat. No other new issues. EXAM: 12/22/23 1238 BP: 124/83 Pulse: 116 Resp: 18 Temp: 36.4 C (97.6 F) SpO2: 99% Weight: 51.8 kg (114 lb 3.2 oz) KPS: 80 General Appearance: Alert and oriented. No acute distress. Oral cavity decreased size right tonsillar mass Neuro alert and oriented x 3 appropriate, extremity strength intact prefabricator strength good Radiation dermatitis: No IMAGING/LAB RESULTS: None Treatment chart checked: Yes Patient treatment site reviewed and verified:Yes Port films reviewed and current:Yes Medications started: None ASSESSMENT/PLAN: Patient finishes this week. Conservative care for mucositis. Does appear tonsillar lesion has decreased in size however. He missed his Decadron yesterday so we will plan to start every other day taper for a week and then stop. Follow-up care discussed. Jyoti Limon MD documented in this encounter [facility] 12-17-2023 Telephone encounter Note Palliative Medicine Care Coordination Follow up Phone Call Patient identified by name and : Yes Spoke to: patient Nurse calling to follow up on pain Does patient feel an improvement in symptoms: No relief at times. Incidental pain with activity. Discussed with patient his pain. He reports currently his pain if fine and was able to sleep last night. He did reports taking oxy IR 15 mg, taking 3 tablets twice daily. Educated he should be taking 1 tablet every 4 hours prn. Educated to not take more than prescribed as this is dangerous and if he runs out they will not be able to prescribe early refills. Educated he should contact our office if his pain is severe. Patient reports he is feeling ok and hoping his treatments will help. He verbalized understanding about following his medications as ordered. Reviewed his pain medication usage: -Oxy IR 15 mg Q4H prn, Taking 3 tablets twice daily. Insruced patient to take 1 tablet every 4 hours if pain level not at a tolerable level. Educated to take before pain gets severe or greater than 5/10 pain. -Gabapentin 400 mg TID, Report he is taking in the am, afternoon, and at HS. -APAP-not taking -NSAIDs-not taking. -Decadron 4 mg daily, reports they are titraiting down but felt it worked when on it twice daily at first but wore off. Patient will take 1 oxy IR 15 mg tablet now and take again in 4 hours If needed. His pain lying still now is 1/10 but when he moves it gets up to 8/9/10 with activity. He will see if taking his pain medication this morning will last the full 4 hours and will call if not effective. Denies any suicidal ideation or thoughts. Said he felt this way when taking Cymbalta no longer having these thoughts. Reports taking his Xanax 0.25 mg at bedtime and instructed not to take with in 2 hours of taking his opioid. Reinforced CURRENT treatment education based on current and anticipated symptoms Teach back method performed: YES Patient verbalizes when to seek medical attention for new/worsening symptoms. Office and on-call numbers reviewed with patient. Julieth Tapia RN December 17, 2023 9:03 AM [facility] 12-17-2023 Miscellaneous Notes Palliative Medicine Care Coordination Follow up Phone Call Patient identified by name and : Yes Spoke to: patient Nurse calling to follow up on pain Does patient feel an improvement in symptoms: No relief at times. Incidental pain with activity. Discussed with patient his pain. He reports currently his pain if fine and was able to sleep last night. He did reports taking oxy IR 15 mg, taking 3 tablets twice daily. Educated he should be taking 1 tablet every 4 hours prn. Educated to not take more than prescribed as this is dangerous and if he runs out they will not be able to prescribe early refills. Educated he should contact our office if his pain is severe. Patient reports he is feeling ok and hoping his treatments will help. He verbalized understanding about following his medications as ordered. Reviewed his pain medication usage: -Oxy IR 15 mg Q4H prn, Taking 3 tablets twice daily. Insruced patient to take 1 tablet every 4 hours if pain level not at a tolerable level. Educated to take before pain gets severe or greater than 5/10 pain. -Gabapentin 400 mg TID, Report he is taking in the am, afternoon, and at HS. -APAP-not taking -NSAIDs-not taking. -Decadron 4 mg daily, reports they are titraiting down but felt it worked when on it twice daily at first but wore off. Patient will take 1 oxy IR 15 mg tablet now and take again in 4 hours If needed. His pain lying still now is 1/10 but when he moves it gets up to 8/9/10 with activity. He will see if taking his pain medication this morning will last the full 4 hours and will call if not effective. Denies any suicidal ideation or thoughts. Said he felt this way when taking Cymbalta no longer having these thoughts. Reports taking his Xanax 0.25 mg at bedtime and instructed not to take with in 2 hours of taking his opioid. Reinforced CURRENT treatment education based on current and anticipated symptoms Teach back method performed: YES Patient verbalizes when to seek medical attention for new/worsening symptoms. Office and on-call numbers reviewed with patient. Julieth Tapia RN December 17, 2023 9:03 AM Maren was in for radiation therapy today and said he stopped taking duloxetine two to three days ago due to suicidal thoughts. Duloxetine was prescribed 11/21/23. He states he still has thoughts of suicide but has no intention or thoughts of acting on them. He states I want to live! He declined meeting with MARGARET Buitrago today. Three of his children live with him and he said he talks to them. He states he doesn't want another antidepressant or any medication similar to that. I explained to him that duloxetine is also used for pain and that may have been the indication. He states I just need Xanax but a higher dose, I'm on such a low dose. He is currently prescribe Xanax 0.25mg one tablet 3 times daily as needed. Dr. Limon evaluated patient as scheduled for his weekly on treatment visit. He also states he is taking oxycodone 15mg 3 tablets twice daily. Prescription written for oxycodone 15mg sig: take 1 tablet by mouth every 4 hours prn pain. He said when he is at home resting, sitting up, he is more comfortable but once he stands up and is moving around the pain returns. Please advise. Rosibel Wheeler RN documented in this encounter [facility] 12-16-2023 Telephone encounter Note Maren was in for radiation therapy today and said he stopped taking duloxetine two to three days ago due to suicidal thoughts. Duloxetine was prescribed 11/21/23. He states he still has thoughts of suicide but has no intention or thoughts of acting on them. He states I want to live! He declined meeting with MARGARET Buitrago today. Three of his children live with him and he said he talks to them. He states he doesn't want another antidepressant or any medication similar to that. I explained to him that duloxetine is also used for pain and that may have been the indication. He states I just need Xanax but a higher dose, I'm on such a low dose. He is currently prescribe Xanax 0.25mg one tablet 3 times daily as needed. Dr. Limon evaluated patient as scheduled for his weekly on treatment visit. He also states he is taking oxycodone 15mg 3 tablets twice daily. Prescription written for oxycodone 15mg sig: take 1 tablet by mouth every 4 hours prn pain. He said when he is at home resting, sitting up, he is more comfortable but once he stands up and is moving around the pain returns. Please advise. Rosibel Wheeler RN [facility] 12-16-2023 Note [facility] 12-16-2023 History of Present illness Narrative Radiation Oncology - On Treatment Review (OTR) Note PATIENT NAME: Pedro Gu PATIENT DIAGNOSIS: Lung cancer, non-small cell with progression left upper chest wall as well as tonsillar involvement COURSE: palliative AREA TREATED: Right tonsil CURRENT DOSE: 1600 cGy in 4 fx PLANNED DOSE: 2000 cGy in 5 fx AREA TREATED: Left upper chest wall CURRENT DOSE: 1200 cGy in 4 fx PLANNED DOSE: 3000 cGy in 10 fx SUBJECTIVE: Pain is somewhat better after starting steroids. No other new issues. Feels off effects related Cymbalta better since stopping. Denies suicidal ideation. EXAM: 12/16/23 1545 BP: 161/86 Pulse: 66 Resp: 16 Temp: 36.3 C (97.3 F) SpO2: 100% Weight: 54.2 kg (119 lb 7.8 oz) KPS: 80 General Appearance: Alert and oriented. No acute distress. Oral cavity decreased size right tonsillar mass Neuro alert and oriented x 3 appropriate, extremity strength intact prefabricator strength good Radiation dermatitis: No IMAGING/LAB RESULTS: None Treatment chart checked: Yes Patient treatment site reviewed and verified:Yes Port films reviewed and current:Yes Medications started: None ASSESSMENT/PLAN: Continue radiation. Continue follow-up with palliative for pain control. Will lower his Decadron from 4 mg twice daily to a dose of 4 mg daily. Jyoti Limon MD documented in this encounter [facility] 12-10-2023 Note [facility] 12-10-2023 History of Present illness Narrative Radiation Oncology - On Treatment Review (OTR) Note PATIENT NAME: Pedro Gu PATIENT DIAGNOSIS: Lung cancer, non-small cell with progression left upper chest wall as well as tonsillar involvement COURSE: palliative AREA TREATED: Right tonsil CURRENT DOSE: 400 cGy in 1 fx PLANNED DOSE: 2000 cGy in 5 fx AREA TREATED: Left upper chest wall CURRENT DOSE: 400 cGy in 1 fx PLANNED DOSE: 2000 cGy in 5 fx SUBJECTIVE: Pain is somewhat better after starting steroids. No other new issues. EXAM: KPS: 80 General Appearance: Alert and oriented. No acute distress. Radiation dermatitis: No IMAGING/LAB RESULTS: None Treatment chart checked: Yes Patient treatment site reviewed and verified:Yes Port films reviewed and current:Yes Medications started: None ASSESSMENT/PLAN: Patient starting radiation today. Plan of care and expectations again reviewed. Plan, MU calculations and qa report reviewed for each area. Initial imaging including cone beam ct and verification reviewed and approved for each area. First treatment given. Continue radiation as prescribed. Jyoti Limon MD documented in this encounter [facility] 12-08-2023 Note HNO ID: [id number] Author: Jyoti LIMON MD Service: ? Author Type: Physician Type: Progress Notes Filed: 12/08/2023 10:05 Note Text: sim [facility] 12-08-2023 History of Present illness Narrative sim documented in this encounter [facility] 12-03-2023 Telephone encounter Note TAMIKOI--Pérez was seen in consult by Dr. Buchanan yesterday. He was to have a SIM for radiation therapy but was not able to lie flat for the [facility] due to pain in his left neck, shoulder, and upper chest. He is prescribed oxycodone IR 15mg si tablet every 4 hours prn. When he arrived yesterday he stated he took 2 tablets in the a.m. due to his pain and that it wasn't helping. 1300 oxycodone 15mg sig: take one tablet now per Dr. Limon. Patient states last dose of oxycodone 15mg 2 tabs was at 0900. SIM was rescheduled today and patient notified to take oxycodone as prescribed one hour prior to his appt today. When he arrived he told the nurse that roomed him he took 3 tablets of oxycodone prior to his appointment and brought an extra tablet with him just in case. I talked to him after his SIM and he said he actually took 4 tablets of oxycoodne IR 15mg prior to this appointment due to his pain. I reviewed with him that his prescribed dose is 1 tablet every 4 hours prn. He states he normally only takes 1 tablet every 4 hours prn but took extra because he knew he wouldn't be able to lay on his back for the SIM. I confirmed that he is taking Neurontin 400mg TID. I told him he needs to contact Christina with [facility] if his pain medication is not effective. He said when he's at home resting his pain is controlled with what is prescribed. He said he is aware to call Christina if needed for medication adjustment and has her phone number. He is scheduled to start radiation therapy 12/10/23. Thanks Rosibel Wheeler RN [facility] 12-03-2023 Miscellaneous Notes FYI--Pérez was seen in consult by Dr. Buchanan yesterday. He was to have a SIM for radiation therapy but was not able to lie flat for the SIM due to pain in his left neck, shoulder, and upper chest. He is prescribed oxycodone IR 15mg si tablet every 4 hours prn. When he arrived yesterday he stated he took 2 tablets in the a.m. due to his pain and that it wasn't helping. 1300 oxycodone 15mg sig: take one tablet now per Dr. Limon. Patient states last dose of oxycodone 15mg 2 tabs was at 0900. SIM was rescheduled today and patient notified to take oxycodone as prescribed one hour prior to his appt today. When he arrived he told the nurse that roomed him he took 3 tablets of oxycodone prior to his appointment and brought an extra tablet with him just in case. I talked to him after his SIM and he said he actually took 4 tablets of oxycoodne IR 15mg prior to this appointment due to his pain. I reviewed with him that his prescribed dose is 1 tablet every 4 hours prn. He states he normally only takes 1 tablet every 4 hours prn but took extra because he knew he wouldn't be able to lay on his back for the SIM. I confirmed that he is taking Neurontin 400mg TID. I told him he needs to contact Christina with [facility] if his pain medication is not effective. He said when he's at home resting his pain is controlled with what is prescribed. He said he is aware to call Christina if needed for medication adjustment and has her phone number. He is scheduled to start radiation therapy 12/10/23. Thanks Rosibel Wheeler RN documented in this encounter [facility] 12-03-2023 History of Present illness Narrative PEDRO GU [id number] 12/03/2023 [facility] Radiation Oncology Department SIMULATION NOTE DATE OF SIMULATION: 12/03/2023 THERAPIST: Sapna Severino MACHINE: [employer] DIAGNOSIS: Malignant neoplasm of upper lobe, left bronchus or lungC34.12 AREA: LT CHESTWALL , RT TONSIL CONTRAST: None Consent in Epic: Yes PATIENT POSITION: Supine. FIXATION DEVICE: In order to achieve accurate and reproducible treatments, the patient is immobilized with orfit AIO and 5 point mask A time-out was conducted and recorded by the therapist. CT scan was completed for target localization and planning. Field arrangement will be determined after plan has been completed. The patient is scheduled for a verification simulation on the treatment machine to ensure proper set-up and field arrangement is correct prior to the first treatment of primary and boost hall if applicable. Patient education will be completed per nursing. Electronically Signed Deon Limon M.D. / CDT 42:54 PM documented in this encounter [facility] 12-03-2023 History of Present illness Narrative PEDRO GU [id number] 12/03/2023 [facility] Department of Radiation Oncology Treatment Planning Note For reasons stated in the consult note, Pedro Gu is a candidate for radiation therapy. Based on review and interpretation of the relevant diagnostic studies together with the exam findings, Pedro Gu was simulated on 12/03/2023 at which time the target volume and/or requisite hall were delineated, as indicated in the simulation note, to be treated according to the prescription. After reviewing the treatment plan with dosimetry, the plan was approved to deliver the prescribed course of radiation to the target area to allow for the best isodose distribution, treating to the 97.8 and 100% isodose line with 6MV and 4 hall. Custom MLC asym jaws were the treatment devices used to shape/modify the beams. Special consideration to these and other structures was given in light of the potential for increased toxicities of retreatment and overlap. IMRT planning was used because it best met the dose/volume constraints for the organs at risk for this patient, better than what could be achieved using conventional or 3D planning. The specific dose requirements for the PTV, organs at risk and dose-volume histograms are contained in this treatment plan and/or elsewhere in the medical record. A completed summary of this plan dated 12/09/2023 incorporated herein by reference includes dose, beam arrangements, energy, blocking, isodose distribution, and/or ports and DVH. Electronically Signed Deon Limon M.D. 2:46 PM documented in this encounter [facility] 12-03-2023 Note [facility] 12-03-2023 Note [facility] 12-02-2023 Note [facility] 12-02-2023 History of Present illness Narrative Radiation Oncology - Follow Up Note PATIENT NAME: Pedro Gu PATIENT DIAGNOSIS: Lung cancer, left upper lobe, pleomorphic carcinoma, stage IIb [id number], stage IIB AJCC 8th edition (chest wall invasion), PD-L1 95%, KRAS G12C mutation present RADIATION SUMMARY: Course 1: 03/26/2022- 05/01/2022 AREA TREATED: left lung DELIVERED DOSE: Area: left lung 5400 cGy in 27 fractions, 2 Arcs, IMRT (VMAT), 6MV/ with daily CBCT TOTAL: 5400 cGy in 27 fractions ELAPSED TIME: 36 days. Course 2: 10/28/2022- 11/12/2022 AREA TREATED: Left upper chest wall, supraclavicular region DELIVERED DOSE: Area: Left upper chest wall, supraclavicular region 3000 cGy in 10 fractions, IMRT, 6MV with daily CBCT TOTAL: 3000cGy in 10 fractions Course 3: 06/18/2023 to 06/24/2023 AREA TREATED: Oropharyngeal cancer, right tonsil. DELIVERED DOSE: Area: Right Oropharynx 2,000 cGy in 5 fractions, 2 Hall, IMRT, 6MV with daily CBCT TOTAL: 2,000 cGy in 5 fractions INTERVAL HISTORY: Patient is having persistent left upper chest wall shoulder discomfort. Patient states that this is up to an 8-10 out of 10. Denies radicular component. Denies upper extremity weakness. Is also having sore throat states occasional dysphagia. PET scan 11/25/2023 demonstrating: IMPRESSION: HEAD/NECK: * Intensely hypermetabolic focus in the right tonsillar/oropharyngeal region. ENT evaluation recommended. CHEST: Scan findings suggest Interval progression. * Hypermetabolic left lower lobe lung nodule increased in size and FDG activity from prior PET scan. Additional nodules stable to some interval increase compared to prior PET scan. * Interval increase in the right hilar uptake suspicious for metastases. * Persistent hypermetabolic left subpectoral region mass. ABDOMEN/PELVIS: * No FDG avid neoplastic process. MUSCULOSKELETAL: * No FDG avid neoplastic process. ALLERGIES No Known Allergies MEDICATIONS: oxyCODONE (ROXICODONE) 15 mg immediate release tablet Take 1 tablet by mouth every 4 hours as needed for pain for up to 30 days. DULoxetine (CYMBALTA) 30 mg capsule Take 1 capsule by mouth once daily. gabapentin (NEURONTIN) 400 mg capsule Take 1 capsule by mouth two times a day for 30 days. OLANZapine (ZYPREXA) 5 mg tablet Take 1 tablet by mouth daily at bedtime. sotorasib (LUMAKRAS) 320 mg tablet Take 3 tablets by mouth once daily. ALPRAZolam (XANAX) 0.25 mg tablet Take 0.25 mg by mouth three times a day as needed. ondansetron (ZOFRAN) 8 mg tablet Take 1 tablet by mouth every 8 hours as needed for nausea/vomiting. metoprolol tartrate, short acting, (LOPRESSOR) 25 mg tablet Take 50 mg by mouth twice daily. isosorbide mononitrate ER (IMDUR) 30 mg 24 hr tablet Take 30 mg by mouth once daily. cilostazol (PLETAL) 100 mg tablet Take 1 tablet by mouth twice daily. clopidogrel (PLAVIX) 75 mg tablet Take 1 tablet by mouth once daily. aspirin 81 mg chewable tablet Take 81 mg by mouth once daily. atorvastatin (LIPITOR) 40 mg tablet Take 40 mg by mouth once daily. levothyroxine (SYNTHROID) 75 mcg tablet Take 1 tablet by mouth once daily. PHYSICAL EXAM: 12/02/23 Weight 53 kg (116 lb 13.5 oz) Height 168.3 cm (5' 6.26 ) BSA 1.57 BMI 18.71 Temp 35.9 C (96.7 F) ! Pulse 55 ! Resp 16 BP 133/83 SpO2 93 % !: Data is abnormal KPS: 100 General Appearance: Alert and oriented. No acute distress. Oral cavity: Mild erythema posterior oropharynx right greater than left. Lesion without significant enlargement on the right tonsil significant improvement compared to pretreatment ASSESSMENT/PLAN: Lung cancer, left upper lobe, pleomorphic carcinoma, stage IIb [id number], stage IIB AJCC 8th edition (chest wall invasion), PD-L1 95%, KRAS G12C mutation present Patient does appear to have regionally persistent disease including right tonsil, left upper chest wall area as well as within the lung. Discussed options including reirradiation of the left upper chest wall area. Discussed risk and benefits of treatment including potential brachial plexopathy from radiation. Patient expressed understanding. Does not want to proceed. Will plan to use IMRT technique to minimize dose to the underlying brachial plexus. Will also plan to retreat his right tonsil with palliative dose of 20 Cooper in 5 fractions. Signed by: Jyoti Limon MD cc: Christina Azul [address] [place] [id number] documented in this encounter [facility] 12-01-2023 Note [facility] 12-01-2023 History of Present illness Narrative PATIENT NAME: Pedro Gu DATE: 12/02/2023 PRIMARY CARE PHYSICIAN: Dr. Christina Azul OTHER PHYSICIANS: Dr. Verito Whelan, Dr. Marianne Fields, Dr. Yo Tse ([facility]) Dr. Limon, Christina Fish Portions of this encounter note have been copied from the note from 11/04/2023 and has been updated where appropriate, and reflect my current medical decision making from today. CC: This is a 68 year old male with metastatic lung cancer, seen for scheduled follow-up and continued treatment. INTERIM HISTORY: Since the patient's last visit here he has had persistent pain over his left upper chest wall, now radiating down his left arm. He has had minimal relief with current pain medications. Otherwise he is clinically stable. He remains on Lumakras 3 pills daily, started 05/16/2023. He appears to be tolerating the medication well. MEDICATIONS: Current Outpatient Medications Medication Sig oxyCODONE (ROXICODONE) 15 mg immediate release tablet Take 1 tablet by mouth every 4 hours as needed for pain for up to 30 days. DULoxetine (CYMBALTA) 30 mg capsule Take 1 capsule by mouth once daily. gabapentin (NEURONTIN) 400 mg capsule Take 1 capsule by mouth two times a day for 30 days. OLANZapine (ZYPREXA) 5 mg tablet Take 1 tablet by mouth daily at bedtime. levothyroxine (SYNTHROID) 75 mcg tablet Take 1 tablet by mouth once daily. sotorasib (LUMAKRAS) 320 mg tablet Take 3 tablets by mouth once daily. ALPRAZolam (XANAX) 0.25 mg tablet Take 0.25 mg by mouth three times a day as needed. ondansetron (ZOFRAN) 8 mg tablet Take 1 tablet by mouth every 8 hours as needed for nausea/vomiting. metoprolol tartrate, short acting, (LOPRESSOR) 25 mg tablet Take 50 mg by mouth twice daily. isosorbide mononitrate ER (IMDUR) 30 mg 24 hr tablet Take 30 mg by mouth once daily. cilostazol (PLETAL) 100 mg tablet Take 1 tablet by mouth twice daily. clopidogrel (PLAVIX) 75 mg tablet Take 1 tablet by mouth once daily. aspirin 81 mg chewable tablet Take 81 mg by mouth once daily. atorvastatin (LIPITOR) 40 mg tablet Take 40 mg by mouth once daily. No current facility-administered medications for this visit. ALLERGIES: ALLERGIES No Known Allergies PAST MEDICAL HISTORY: PAST MEDICAL HISTORY Diagnosis Date Carotid artery disease (HCC) bilateral COPD (chronic obstructive pulmonary disease) (HCC) Heart attack (HCC) History of non-ST elevation myocardial infarction (NSTEMI) HTN (hypertension) Hypertension 09/25/2021 Lung cancer (HCC) Malignant neoplasm of lower lobe of left lung (HCC) Peripheral arterial disease (HCC) 2019 R REGISTRATION COORDINATOR stent PAST SURGICAL HISTORY: PAST SURGICAL HISTORY Procedure Laterality Date BACK SURGERY HX 2019 CABG (4) VEIN GRAFTS & ARTERIAL GRAFT(S) 2016 LOWER EXTREMITY FUNNEL SETTER W/WO STENT Right 2019 right common femoral artery stent REMOVAL OF LUNG,LOBECTOMY Left 09/26/2021 VATS left upper lung wedge resection, completion lobectomy, lymph node dissection, application of Progel to staple line, intercostal nerve blocks for cancer FAMILY HISTORY: FAMILY HISTORY Problem Relation Age of Onset Lung Cancer Father Heart Attack Father Coronary Artery Disease Father SOCIAL HISTORY: Social History Tobacco Use Smoking status: Former Packs/day: 2.00 Years: 50.00 Additional pack years: 0.00 Total pack years: 100.00 Types: Cigarettes Start date: 1968 Passive exposure: Past Smokeless tobacco: Never Tobacco comments: was smoking on and off fully quit 09/14/21 Vaping Use Vaping Use: Never used Substance Use Topics Alcohol use: Yes Alcohol/week: 30.0 standard drinks of alcohol Types: 30 Cans of Beer (12oz) per week Comment: 4-9 beers per day Drug use: Never REVIEW OF SYSTEMS: General: No weight loss, malaise or fevers. HEENT: Negative for frequent or significant headaches. No changes in hearing or vision, no nose bleeds or other nasal problems. Respiratory: Negative for wheezing. Chronic shortness of breath. See HPI. Cardiovascular: Negative for chest pain, leg swelling or palpitations. GI: Negative for abdominal discomfort, blood in stools or black stools or change in bowel habits. : No history of dysuria, frequency or incontinence. Musculoskeletal: Negative for joint pain or swelling and muscle pain. Skin: Negative for rash, lesions and itching. Hematology/Lymphology: Negative for prolonged bleeding, bruising easily or swollen nodes. Neuro: No history of headaches, syncope, paralysis, seizures or tremors. PHYSICAL EXAM: BP 133/83 Pulse (!) 55 Temp (!) 35.9 C (96.7 F) (Temporal) Resp 16 Ht 168.3 cm (5' 6.26 ) Wt 53 kg (116 lb 13.5 oz) SpO2 93% BMI 18.71 kg/m ECOG 1 Exam limited to gross visualization where appropriate due to COVID-19. Gen.: This is an age-appropriate patient in no acute distress. Head: Appears atraumatic with no visible lesions. Eyes: Pupils equally round and reactive to light, extraocular muscles are intact. Neck: Supple. Mouth: Masked. Respiratory: Appears to be respiring comfortably. Neurologic: Nonfocal to gross visualization. Alert and oriented 3. Psychiatric: No evidence of inappropriate anxiety or depression. Skin: Visible areas of skin without lesions, wounds or petechiae. Positive rash- mainly involving face and upper back. PATHOLOGY: 10/21/2022 [id number] NGS analysis KRAS G12C mutation present, 5.2% MSI high not detected EGFR, ALK, ROS1, BRAF negative 09/26/2021 Left upper lobectomy and mediastinal lymphadenectomy Lung, left upper lobe, wedge resection and completion lobectomy: - Pleomorphic carcinoma (2.2 cm) (See comment and synoptic template). - Visceral pleural invasion present. - Tumor invades into parietal pleural/chest wall adipose tissue. - Arterial invasion present. - Five hilar/peribronchial lymph nodes, negative for tumor (0/5). - Emphysema with patchy smoking-related interstitial fibrosis. - Margins negative. Molecular markers: RET rearrangement negative, ROS1 negative, BRAF negative, EGFR negative, HER-2 negative, KRAS G12C positive, ALK 1 negative, PD-L1 95% LABS: Hemoglobin (g/dL) Date Value 11/25/2023 12.8 07/03/2021 14.2 Hematocrit (%) Date Value 11/25/2023 38.1 07/03/2021 41.8 WBC (k/uL) Date Value 11/25/2023 7.04 07/03/2021 5.83 Platelet Count (k/uL) Date Value 11/25/2023 225 07/03/2021 265 RADIOLOGY/OTHER STUDIES: 11/25/2023 PET scan IMPRESSION: HEAD/NECK: * Intensely hypermetabolic focus in the right tonsillar/oropharyngeal region. ENT evaluation recommended. CHEST: Scan findings suggest Interval progression. * Hypermetabolic left lower lobe lung nodule increased in size and FDG activity from prior PET scan. Additional nodules stable to some interval increase compared to prior PET scan. * Interval increase in the right hilar uptake suspicious for metastases. * Persistent hypermetabolic left subpectoral region mass. ABDOMEN/PELVIS: * No FDG avid neoplastic process. MUSCULOSKELETAL: * No FDG avid neoplastic process. 10/21/2023 CT chest IMPRESSION: 1. Numerous bilateral pulmonary nodules. The largest nodule in the right lower lobe has increased in size when compared to prior exam. Other nodules are overall stable when compared to prior studies. 2. No evidence of intrathoracic lymphadenopathy. 09/15/2023 PET scan IMPRESSION: HEAD/NECK: * Hypermetabolic focus in the right tonsillar region with interval decreased FDG activity. * No hypermetabolic lymphadenopathy. CHEST: Interval improvement in the previously present hypermetabolic bilateral lung nodules with decreased size and FDG activity. Residual smaller nodules with mild/moderate uptake. Mild residual uptake in the right hilum. * Hypermetabolic left subpectoral soft tissue mass with interval decrease in FDG activity. ABDOMEN/PELVIS: * No FDG avid neoplastic process. MUSCULOSKELETAL: * No FDG avid neoplastic process. 05/12/2023 PET scan IMPRESSION: 1. NECK: * Increased size and hypermetabolism of right tonsillar mass, concerning for neoplasm. * New diffuse thyroid hypermetabolism, related to thyroiditis and possibly a side effect of the immune checkpoint inhibitor. 2. CHEST: * Increased size and hypermetabolism of left subpectoral node/mass. * Increased size, number, and hypermetabolism of bilateral metastatic pulmonary nodules.. 3. ABDOMEN/PELVIS: * No FDG avid neoplastic process. . 4. EXTREMITIES/SKELETON: * No suspicious FDG avid osseous lesion. 01/17/2023 PET scan IMPRESSION: 1. Neck: Persistent hypermetabolic focus in the right tonsillar region. 2. Chest: Interval decrease with decreased FDG activity associated with the left subpectoral region soft tissue mass. Mild residual uptake. Multiple persistent hypermetabolic bilateral lung nodules suspicious for metastases. 3. Abdomen and pelvis: No evidence of FDG avid neoplastic process 4. Skeleton: No hypermetabolic osseous lesions 01/03/2023 Chest CTA ([facility]) Bilateral hilar soft tissue nodules concerning for malignant lymph nodes. Developing nodularity of the right lung with the largest measuring up to 14 mm. 10/10/2022 PET scan IMPRESSION: 1. Neck: hypermetabolic focus in the right tonsillar/parapharyngeal region, similar to prior. 2. Chest: Hypermetabolic left subpectoral region mass. Hypermetabolic bilateral lung nodules. Findings concerning for progression of neoplastic process. 3. Abdomen and pelvis: No evidence of FDG avid neoplastic process 4. Skeleton: No hypermetabolic osseous lesions 09/17/2022 CT chest IMPRESSION: 1. Multiple new and enlarging bilateral pulmonary nodules, highly suspicious for progression of disease. 2. No evidence of new bulky intrathoracic lymphadenopathy. 09/17/2022 CT abdomen/pelvis IMPRESSION: 1. No evidence of abdominal or pelvic metastatic disease. 2. Findings compatible with a subcapsular hematoma within the spleen. 3. No evidence of abdominal or pelvic lymphadenopathy. 06/14/2022 CT Chest IMPRESSION: 1. Several indeterminate subcentimeter nodular opacities measuring up to 7 mm, new since 09/25/21. Consider interval follow-up. 2. Other noncalcified subcentimeter nodular opacities measuring less than 5 mm, stable. 3. New trace loculated left pleural effusion, most likely related to postoperative change. 06/11/2022 Chest xray IMPRESSION: A small loculated left pleural effusion is felt to have progressed in size from the prior study, as above. 04/12/2022 Bone scan ([facility]) Degenerative findings. No evidence of metastatic disease. 05/23/2022 MRI Lumbar Spine Impression: Heterogeneous appearance of the vertebral bodies stable from the prior exam, nonspecific. No enhancing mass. Mild to moderate discogenic changes L2-S1 grossly stable. For minimal stenosis at several levels as detailed. 10/31/2021 Brain MRI IMPRESSION: No evidence of an acute intracranial process. No intracranial enhancing lesion to suggest metastasis. 09/25/2021 CT chest IMPRESSION: Increased peripheral left upper lobe mass with adjacent curvilinear scarlike opacity concerning for neoplasm. No other acute thoracic disease. ASSESSMENT/PLAN: 1. 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 Status post left upper lobectomy and mediastinal lymphadenectomy 09/26/2021. The primary tumor involved the visceral and parietal pleura with evidence of invasion into the chest wall adipose tissue. Surgical margins negative. Postop it was recommended the patient receive adjuvant chemotherapy with cisplatin plus pemetrexed x4 cycles. He received his first cycle on 10/26/2021, and it was complicated by renal dysfunction. Subsequently the patient's treatment was changed to carboplatin plus pemetrexed. He completed his fourth cycle on 01/22/2022. After completing chemotherapy the patient received adjuvant radiation therapy to the left lung 03/26/2022 - 05/01/2022 (5400 cGy in 27 fractions). August 2022 the patient developed increasing cough and shortness of breath. CT scans 09/17/2022 revealed multiple bilateral pulmonary nodules, suspicious for metastases. PET scan 10/10/2022 revealed a hypermetabolic mass in the left subpectoral region plus bilateral pulmonary nodules consistent with metastatic disease. Biopsy was recommended but the patient declined. Subsequently it was elected to start systemic therapy with pembrolizumab, with plans to give 200 mg IV every 3 weeks. Pembrolizumab cycle 1 was given 10/21/2022. Palliative radiation therapy to the left upper chest wall given 10/28/2022 - 11/12/2022. The patient was seen on 11/11/2022 for pembrolizumab cycle 2, but treatment postponed due to elevated LFTs. Pembrolizumab resumed 12/06/2022 and continued every 3 weeks since. Restaging PET scan 01/17/2023 revealed significant improvement in the left chest wall mass, but persistent disease in the lungs bilaterally. Single agent pembrolizumab continued. When seen 04/22/2023 the patient complained of increasing pain over his left upper chest wall. Repeat PET scan 05/12/2023 revealed increased size and hypermetabolism of the right tonsillar mass, increased size and hypermetabolism of the left subpectoral mass, and increased size and number of bilateral lung metastases. Due to progressive disease pembrolizumab was discontinued. The primary tumor NGS analysis was positive for K-huong G12C mutation. For this reason it was elected to change treatment to targeted therapy with Lumakras. Treatment started 05/16/2023. Repeat PET scan 09/15/2023 significantly improved. For evaluation of increasing pain the patient underwent a repeat chest CT 10/21/2023 which revealed slight growth of several pulm nodules, otherwise relatively stable. Due to persistent/worsening pain the patient underwent a PET scan 11/25/2023. This revealed persistent uptake in the left subpectoral region, minimally changed from prior. Slight growth of a left lung nodule and right hilar adenopathy, as well as increased uptake in the right tonsillar mass. The patient is currently symptomatic with severe pain. Options for management were discussed at length. I suggested a more aggressive chemotherapy regimen, but the patient declined. Per patient request we will refer to radiation oncology to evaluate for additional palliative radiation to the left upper chest wall. Would also consider radiation to the progressive disease in the left lung, as well as possible additional radiation to the right tonsil. For now the patient will continue as is with Lumakras. I will see him back in 3 weeks for follow-up. If in agreement we will then discuss other systemic treatment options including chemo +/- immunotherapy. He will also follow-up with [facility] palliative medicine to discuss more aggressive pain medications. 2. Carcinoma of the right tonsil Baseline PET and CT neck revealed suspicious abnormalities in the right tonsil. The patient was initially seen by [facility] ENT on 07/26/2021, and clinical evaluation was most consistent with inflammatory/post-infectious findings. The patient was advised to stop chewing tobacco and continue close observation. Follow-up PET 05/12/2023 revealed significant increased size and metabolism of the right tonsillar mass. The patient was reevaluated by [facility] ENT May 2023 and it was felt the mass was malignant. Recommendations were to proceed with palliative radiation therapy to the area. The patient received 5 fractions completed 06/24/2023. Most recent PET scan 11/25/2023 revealed increased uptake in the involved area. He will follow-up with radiation oncology to consider additional radiation to the area. 3. Centrilobular emphysema (HCC) - ICD9: 492.8, ICD10: J43.2 Long history of tobacco abuse, quit September 2021. 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 4. Coronary artery disease Status post AMI 2015. Status post CABG x 4 in [place] 2015. Currently stable. Continue management per PCP/cardiology. 5. Peripheral vascular disease Status post balloon angioplasty right lower leg 2019. On long-term antiplatelet agents with Plavix and Pletal. Continue management per PCP/vascular surgery. 6. Cancer related pain Severe pain left upper chest wall August 2022, temporarily required Percocet. Pain initially resolved with radiation. February 2023 the patient developed recurrent pain, and currently uses Percocet as needed. Continue follow-up with [facility] palliative medicine. 7. Abnormal LFTs Labs from 11/11/2022 revealed significant elevation of the SGOT and SGPT, most likely transaminitis secondary to OTC supplements (fenbendazole +/- curcumin). After discontinuing these supplements the patient's LFTs normalized, but unfortunately he resumed taking them again on 12/06/2022 and his LFTs worsened. The patient discontinued the medications and his LFTs temporarily normalized. However, current LFTs are elevated. The patient drinks alcohol consistently, and was told to abstain. Will monitor LFTs closely and intervene accordingly if labs continue to worsen. 8. Anxiety - ICD9: 300.00, ICD10: F41.9 Continue Xanax as needed for anxiety. 9. Hypothyroidism due to medication - ICD9: 244.8, E980.5, ICD10: E03.2 Labs obtained 04/22/2023 revealed markedly elevated TSH consistent with immunotherapy induced hypothyroidism. Synthroid started 04/23/2023. Current dose 75 mcg daily as of 05/15/2023. The patient admits to being noncompliant with this medication, and was urged to take daily to improve his overall wellbeing. We will follow TFTs and adjust dosage accordingly. Pito Grigsby MD documented in this encounter [facility] 11-25-2023 Note [facility] 11-25-2023 History of Present illness Narrative Pt here for PET scan. States has not been eating or drinking much doesn't have an appetite and feels weak. Denies N/V/D. Dr. Grigsby aware and Whitney Rai RNCC updated. New orders for 1 L NS over 1 hr. Pt states understanding with POC. Deborah Warner RN documented in this encounter [facility] 11-25-2023 History of Present illness Narrative Summary: IRB [id number] Informed Consent CASE [id number] ([id number]): Tissue and Body Fluid Analysis from Patients with Cancer and Other Risk- Associated Lesions Patient seen in clinic for informed consent of the above mentioned protocol. Patient agrees to participate in the above mentioned research study. The patient has signed a copy of the informed consent. Patient has contact information for the study team and Dr. Pito Grigsby M.D. See consent note in Epic. Olga Lidia Rosas, MSN, RN Clinical Research Nurse documented in this encounter [facility] 11-25-2023 Note [facility] 11-25-2023 Note [facility] 11-25-2023 Note [facility] 11-24-2023 Telephone encounter Note Please sign pended labs if agreeable-will draw with PET tomorrow. F/U with you 12/01 Thank You! Hannah Oglesby RN [facility] 11-24-2023 Miscellaneous Notes Please sign pended labs if agreeable-will draw with PET tomorrow. F/U with you 12/01 Thank You! Hannah Oglesby RN documented in this encounter [facility] 11-21-2023 Instructions Maryjo Fish APRN.RONAL - 11/21/2023 10:25 AM EDT Maryjo Fish CNP Department of Palliative and Supportive Care Palliative Care - Specialty services in symptom management and support For questions or prescription refills, call: [phone] Friday - Friday 9AM-5PM LASHAY Evans, RN - Admitting Representative Please call 3-5 days in advance for medication refills Evenings, Weekends, Holidays: [phone] (ask for palliative medicine on-call provider) For appointments, cancellations or reschedule, call: [phone] documented in this encounter [facility] 11-21-2023 History of Present illness Narrative PALLIATIVE MEDICINE PROGRESS NOTE SERVICE DATE: 11/21/2023 CHIEF COMPLAINT: Pain PERTINENT MEDICAL HISTORY: Primary Site of Disease/Medical Illness: Lung Site of Metastasis: invasion of the visceral pleura and chest wall adipose tissue, arterial invasion present Anxiety, Centrilobular emphysema, CAD, PVD Subjective Complains of increased pain over his left upper chest wall radiating to left shoulder and down left arm, Described as a mix of nocieptive and neuropathic pain. he underwent a repeat chest CT. This revealed slight growth of a few pulmonary nodules, but otherwise no significant change. 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 He has been using 10 mg oxycodone about TID, it is helpful but still moderate and he has difficulty working and sleeping. He appears uncomfortable during our visit. Constipation controlled with Miralax and Senakot He feels his appetite has improved, but has started a ketogenic diet in order to reduce inflammation in his body.He has been reading about functional medicine and request a consult Continues xanax tid for anxiety prescribed by pcp. Using olanzapine nightly, it has improved anxiety and sleep. He started a keto diet in order to reduce inflammation to reduce pain, anxiety, and he hopes it will improve his cancer. He does feel it has been helpful for pain and anxiety. Modified ESAS ([place] Symptom Assessment Scale) Information Provided By: Patient Pain: Severe Nausea: None Loss of Appetite: None Constipation: None Shortness of Breath: None Drowsiness: None Tiredness: Mild Depression: None Anxiety: Mild Objective ECOG PERFORMANCE STATUS: 0- Fully active, able to carry on all pre-disease performance w/o restriction. PHYSICAL EXAMINATION: Vital signs: There were no vitals taken for this visit. Last 1 Encounter Temp Readings: Date: Temp: Temp Src: 11/04/2023 36.1 C (97 F) Temporal Last 1 Encounter Resp Readings: Date: Resp: 11/04/2023 16 Last 1 Encounter Pulse Readings: Date: Pulse: 11/04/2023 101 Last 1 Encounter BP Readings: Date: BP: 11/04/2023 147/84 Physical Exam Constitutional: Appearance: He is well-groomed. HENT: Head: Normocephalic and atraumatic. Jaw: There is normal jaw occlusion. Right Ear: Hearing and external ear normal. Left Ear: Hearing and external ear normal. Nose: Nose normal. Mouth/Throat: Lips: [place]. Mouth: Mucous membranes are moist. No oral lesions. Eyes: General: Lids are normal. Gaze aligned appropriately. Extraocular Movements: Extraocular movements intact. Conjunctiva/sclera: Conjunctivae normal. Neck: Thyroid: No thyroid mass. Cardiovascular: Rate and Rhythm: Normal rate and regular rhythm. Pulses: Normal pulses. Heart sounds: Normal heart sounds. Pulmonary: Effort: Pulmonary effort is normal. Abdominal: General: Abdomen is flat. Bowel sounds are normal. Palpations: Abdomen is soft. Musculoskeletal: General: No swelling, tenderness or deformity. Normal range of motion. Right shoulder: Normal. Left shoulder: Normal. Right upper arm: Normal. Left upper arm: Normal. Cervical back: Full passive range of motion without pain. Right lower leg: No edema. Left lower leg: No edema. Skin: General: Skin is warm and dry. Capillary Refill: Capillary refill takes less than 2 seconds. Findings: No rash. Neurological: General: No focal deficit present. Mental Status: He is alert and oriented to person, place, and time. Psychiatric: Attention and Perception: Attention normal. Mood and Affect: Mood normal. Speech: Speech normal. Behavior: Behavior normal. Behavior is cooperative. Thought Content: Thought content normal. Cognition and Memory: Cognition and memory normal. Judgment: Judgment normal. DATA: Diagnostic tests reviewed for today's visit: Most recent labs and imaging results. Estimated Creatinine Clearance: 47 mL/min (A) (based on SCr of 1.23 mg/dL (H)). Opioid Management: Yes Indication for Opioid Prescribing: Cancer related pain ORT-OUD Score: 2 A score of 3 or higher may indicate a higher risk for future development of aberrant drug related behavior or opioid use disorder. Informed consent for chronic opiate therapy obtained and written pain agreement: On file Naloxone offered?: Previously prescribed Course of treatment, patient's response and adherence to the prescribed treatment plan reviewed, including non-pharmacological and non-opioid treatment modalities? Yes Have any complications or exacerbations of the underlying condition causing the pain been reviewed? Yes How much does pain impede patient s ability to engage in work or other purposeful activities, interfere with your activities of daily living, physical activity, or quality of your family life and social activities? Significantly Aberrancies in pain panel? No Any aberrant drug related behaviors since last visit? No Rationale for continuing opioid treatment: Improved comfort and function based on an ongoing functional assessment Benefits of Opioid Therapy outweigh risks: Yes Prescribed Morphine Equivalent Daily Dose (MEDD): Yes > 50 MEDD Yes, I am certified in Hospice and Palliative Care, Hematology, Medical Oncology or Pain Medicine OARRS Checked: PDMP website checked and validated. All prescriptions have been APPROPRIATELY filled. No suspicious activity was identified. 11/21/2023 by Maryjo Fish NP, [employer]ATION MECH[employer]IC HELPER.RN DERMATOLOGY Urine Screen Lab Results Component Value Date UAMPH Negative 09/26/2021 UBARB2 Negative 09/26/2021 UBENZ Negative 09/26/2021 UCOC2 Negative 09/26/2021 UOPI Negative 09/26/2021 UOXYC Negative 09/26/2021 UPCP Negative 09/26/2021 UTHC Negative 09/26/2021 UETOH <11 09/26/2021 Assessment & Plan (Z51.5) Palliative care by specialist (primary encounter diagnosis) - Reviewed philosophy of palliative medicine - Discussed services offered by [facility] - Provided support -Discussed services offered by palliative medicine and how to contact us (T62.00) 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 at bedtime -Small frequent meals maximizing protein and calories consider nutritional shakes - Requests functional medicine consult (F41.9) Anxiety (F51.04) Insomnia -Discussed we will continue Xanax for to use as needed for severe anxiety attacks, but but gold standard of treatment is a multimodal approach -Discussed danger of using Xanax and alcohol together, increases the risk of respiratory depression which can lead to or permanent disability - Continue olanzapine 5 mg p.o. at bedtime - Continue sertraline 25 mg p.o. at bedtime -Continue alprazolam 0.25 mg p.o. every 8 hours as needed severe anxiety - Offered emotional support through onco psych Some elements copied from my note on 08/15/23, the elements have been updated and all reflect current decision making from today, 11/21/2023. Existence of Advance Directives: No - not interested Next Visit: 6-8 Weeks in person Maryjo Fish NP, OZZIE.RN DERMATOLOGY November 21, 2023 9:44 AM This note may have been partially generated using the [employer] voice recognition system. While every effort was made to correct voice recognition errors, kindly be aware that some errors may occasionally occur. documented in this encounter [facility] 11-21-2023 Note [facility] 11-11-2023 Telephone encounter Note Pt reports he lost his appointment reminder. Calls to verify his upcoming appointments. Informed pt of his appointment on 11/13 w/ Pall Med, CT on 11/24, and F/u w/ [facility] on 12/01. Pt states he has a to go to this Friday. Requests to reschedule his Pall Med appointment. Call transferred to MONA Muhammad, for scheduling. Denita Sessler, RN [facility] Work Phone: 11-11-2023 Miscellaneous Notes Pt reports he lost his appointment reminder. Calls to verify his upcoming appointments. Informed pt of his appointment on 11/13 w/ Pall Med, CT on 11/24, and F/u w/ [facility] on 12/01. Pt states he has a to go to this Friday. Requests to reschedule his Pall Med appointment. Call transferred to Enrique, [facility], for scheduling. Denita Rai RN documented in this encounter [facility] 11-05-2023 Miscellaneous Notes 2nd call placed to pt. Message received noting that number has calling restrictions preventing the completion of this call. Denita Rai RN Voicemail message received from pt. Call placed to pt. No answer. Voicemail is full. Unable to leave a message. Denita Rai RN documented in this encounter [facility] 11-04-2023 Miscellaneous Notes Pt aware of [facility] message. He is not taking any alternative cancer treatments, but does admit to daily alcohol intake. Pt is encouraged to modify/lessen alcohol consumption. Pt agreeable to POC. He denies any questions, needs or concerns at this time. Follow up appt verified. Nidia Lopes RN [facility]: FYI ----- Message from Pito Grigsby MD sent at 11/04/2023 1:00 PM EDT ----- Please inform the patient that his LFTs have increased again. Please verify that he is not taking any alternative cancer treatments and/or he is not drinking excessively. Calcium and kidney function are stable. documented in this encounter [facility] 11-04-2023 Note [facility] 11-04-2023 History of Present illness Narrative Oncology Nutrition Therapy Reassessment RECOMMENDED MALNUTRITION DIAGNOSIS: UNABLE TO IDENTIFY MALNUTRITION AT THIS TIME due no NFPE and limited diet recall Some elements copied from my note on 01/07/2023, have been updated and all reflect current decision making from today, 11/04/2023 Nutrition Diagnosis: Behavioral-Environmental: Limited adherence to nutrition related recommendations, related to, lack of value for behavior change or competing values, as evidenced by patient interview Nutrition Intervention: -advised against strict diet plans such as strict Keto -aim for overall healthy balanced diet such as recommendations from [employer] [place] [employer] focusing on lean proteins, whole grains, beans/legumes, fruits, vegetables, heart healthy fats, low fat dairy products -work towards reducing alcohol consumption -provider contact information provided for further questions/concerns Nutrition Monitoring & Evaluation: -PO Intake -Wt status -BM's -Biochemical Markers -Plan of care Date of last encounter: January 07, 2023 Patient met goal(s): Partially Patient's symptoms are: Weight Concerns: weight loss Patient presents for nutrition counseling for: malignant neoplasm of upper lobe of left lung Current Treatment: oral chemotherapy-- lumakras (sotorasib) Previous Treatment(s): per chart review: -left upper lobectomy () -adjuvant cisplatin + pemetrexed -carboplatin + pemetrexed -pembrolizumab Pt requesting information for keto diet to shrink his cancer. Patient states he has followed a no sugar diet before and knows this help a previous PET scan results be favorable. He states he currently is trying to eat primarily proteins and vegetables, measures if he is in ketosis, will sometimes eat fruit. Patient is not very forthcoming when giving diet details. Attempted to review with patient the limited evidence-based literature surrounding keto diets as a means to treat, shrink, or cure cancer. Patient does not appear receptive. As I was encouraging consumption of balanced diet, patient again mentioned how he needs to avoid sugars. He then asks about alcohol and does state he drinks frequently, but selects light beer. Discussed health implications of excessive alcohol consumption and how alcohol is a risk factor for cancer and other co-morbidities. Patient did not appear receptive and stated I guess I just need to figure it out. Thank you for allowing me to participate in the care of this pt. Readiness to Learn: Cognitive ability: Alert and oriented Motivation to learn: Reluctant Family support: Unable to assess - Family not present Instruction provided to: Patient Patient learns best by: Individual Instruction Factors affecting learning: None Physical limitations affecting learning: None Educational materials provided: [employer] [place] [employer], Heart Healthy Plate Anthropometrics: Height: Last 1 Encounter Ht Readings: Date: Ht: 11/04/2023 168.3 cm (5' 6.26 ) Current weight: Last 1 Encounter Wt Readings: Date: Wt: 11/04/2023 56.3 kg (124 lb 1.9 oz) Estimated body mass index is 19.88 kg/m as calculated from the following: Height as of an earlier encounter on 11/04/23: 168.3 cm (5' 6.26 ). Weight as of an earlier encounter on 11/04/23: 56.3 kg (124 lb 1.9 oz). Resting Metabolic Rate: 1294 Weight Change: -6.8kg (10.7%) x ~3 months, considered clinically significant Dosing Weight: 56.3 kg Estimated kilocalorie needs: 5401-3360 kilocalories determined by 30-35 kcal/kg Estimated protein needs: 56-84 grams determined by 1.0-1.5 g/kg Dosing weight Estimated fluid needs: ~3900-5342 milliliters based on 1 mL per kcal (unless otherwise indicated) Nutrition Focused Physical Exam: Unable to perform exam due to potential for patient discomfort (physical/emotional), will re-attempt during reassessment. Potential Signs of Inflammation: chronic condition Allergies: Patient has no known allergies. Medications: Current Outpatient Medications Medication Sig Dispense Refill oxyCODONE IR (ROXICODONE) 5 mg immediate release tablet Take 1 tablet by mouth every 6 hours as needed for pain for up to 15 days. 60 tablet 0 amoxicillin (AMOXIL) 875 mg tablet Take 1 tablet by mouth every 12 hours. (Patient not taking: Reported on 11/04/2023) OLANZapine (ZYPREXA) 5 mg tablet Take 1 tablet by mouth daily at bedtime. 30 tablet 3 levothyroxine (SYNTHROID) 75 mcg tablet Take 1 tablet by mouth once daily. 30 tablet 1 sotorasib (LUMAKRAS) 320 mg tablet Take 3 tablets by mouth once daily. 90 tablet 3 gabapentin (NEURONTIN) 300 mg capsule Take 1 capsule by mouth three times a day 90 capsule 3 ALPRAZolam (XANAX) 0.25 mg tablet Take 0.25 mg by mouth three times a day as needed. ondansetron (ZOFRAN) 8 mg tablet Take 1 tablet by mouth every 8 hours as needed for nausea/vomiting. 90 tablet 1 metoprolol tartrate, short acting, (LOPRESSOR) 25 mg tablet Take 50 mg by mouth twice daily. isosorbide mononitrate ER (IMDUR) 30 mg 24 hr tablet Take 30 mg by mouth once daily. cilostazol (PLETAL) 100 mg tablet Take 1 tablet by mouth twice daily. clopidogrel (PLAVIX) 75 mg tablet Take 1 tablet by mouth once daily. aspirin 81 mg chewable tablet Take 81 mg by mouth once daily. atorvastatin (LIPITOR) 40 mg tablet Take 40 mg by mouth once daily. No current facility-administered medications for this visit. Need for Follow up: prn Referred by: Seb ROGER Billing Type: Re-assess/15 min 1 unit Time Spent with Patient: 15 minutes Signed by: Dominique Murphy MS, RDN, LD documented in this encounter [facility] 11-03-2023 Note [facility] 11-03-2023 History of Present illness Narrative PATIENT NAME: Pedro Gu DATE: 11/04/2023 PRIMARY CARE PHYSICIAN: Dr. Christina Azul OTHER PHYSICIANS: Dr. Verito Whelan, Dr. Marianne Fields, Dr. Yo Tse ([facility]) Christina Tavarez Portions of this encounter note have been copied from the note from 10/20/2023 and has been updated where appropriate, and reflect my current medical decision making from today. CC: This is a 68 year old male with metastatic lung cancer, seen for scheduled follow-up and continued treatment. INTERIM HISTORY: Since the patient's last visit here he has remained on Lumakras 3 pills daily, started 05/16/2023. He appears to be tolerating the medication well. For evaluation of his increasing left upper chest wall/left shoulder pain he underwent a repeat chest CT. This revealed slight growth of a few pulmonary nodules, but otherwise no significant change. On follow-up today his pain is fairly minimal. Overall he has had no significant medical changes. Apparently he is following a keto diet assuming this would help his cancer prognosis. He has not started any new alternative treatments. Unfortunately, he apparently drinks alcohol on a daily basis. MEDICATIONS: Current Outpatient Medications Medication Sig oxyCODONE IR (ROXICODONE) 5 mg immediate release tablet Take 1 tablet by mouth every 6 hours as needed for pain for up to 15 days. amoxicillin (AMOXIL) 875 mg tablet Take 1 tablet by mouth every 12 hours. OLANZapine (ZYPREXA) 5 mg tablet Take 1 tablet by mouth daily at bedtime. levothyroxine (SYNTHROID) 75 mcg tablet Take 1 tablet by mouth once daily. sotorasib (LUMAKRAS) 320 mg tablet Take 3 tablets by mouth once daily. gabapentin (NEURONTIN) 300 mg capsule Take 1 capsule by mouth three times a day ALPRAZolam (XANAX) 0.25 mg tablet Take 0.25 mg by mouth three times a day as needed. ondansetron (ZOFRAN) 8 mg tablet Take 1 tablet by mouth every 8 hours as needed for nausea/vomiting. metoprolol tartrate, short acting, (LOPRESSOR) 25 mg tablet Take 50 mg by mouth twice daily. isosorbide mononitrate ER (IMDUR) 30 mg 24 hr tablet Take 30 mg by mouth once daily. cilostazol (PLETAL) 100 mg tablet Take 1 tablet by mouth twice daily. clopidogrel (PLAVIX) 75 mg tablet Take 1 tablet by mouth once daily. aspirin 81 mg chewable tablet Take 81 mg by mouth once daily. atorvastatin (LIPITOR) 40 mg tablet Take 40 mg by mouth once daily. No current facility-administered medications for this visit. ALLERGIES: ALLERGIES No Known Allergies PAST MEDICAL HISTORY: PAST MEDICAL HISTORY Diagnosis Date Carotid artery disease (HCC) bilateral COPD (chronic obstructive pulmonary disease) (HCC) Heart attack (HCC) History of non-ST elevation myocardial infarction (NSTEMI) HTN (hypertension) Hypertension 09/25/2021 Lung cancer (HCC) Malignant neoplasm of lower lobe of left lung (HCC) Peripheral arterial disease (HCC) 2019 R REGISTRATION COORDINATOR stent PAST SURGICAL HISTORY: PAST SURGICAL HISTORY Procedure Laterality Date BACK SURGERY HX 2019 CABG (4) VEIN GRAFTS & ARTERIAL GRAFT(S) 2016 LOWER EXTREMITY FUNNEL SETTER W/WO STENT Right 2019 right common femoral artery stent REMOVAL OF LUNG,LOBECTOMY Left 09/26/2021 VATS left upper lung wedge resection, completion lobectomy, lymph node dissection, application of Progel to staple line, intercostal nerve blocks for cancer FAMILY HISTORY: FAMILY HISTORY Problem Relation Age of Onset Lung Cancer Father Heart Attack Father Coronary Artery Disease Father SOCIAL HISTORY: Social History Tobacco Use Smoking status: Former Packs/day: 2.00 Years: 50.00 Additional pack years: 0.00 Total pack years: 100.00 Types: Cigarettes Start date: 1970 Passive exposure: Past Smokeless tobacco: Never Tobacco comments: was smoking on and off fully quit 09/14/21 Vaping Use Vaping Use: Never used Substance Use Topics Alcohol use: Yes Alcohol/week: 30.0 standard drinks of alcohol Types: 30 Cans of Beer (12oz) per week Comment: 4-9 beers per day Drug use: Never REVIEW OF SYSTEMS: General: No weight loss, malaise or fevers. HEENT: Negative for frequent or significant headaches. No changes in hearing or vision, no nose bleeds or other nasal problems. Respiratory: Negative for wheezing. Chronic shortness of breath. See HPI. Cardiovascular: Negative for chest pain, leg swelling or palpitations. GI: Negative for abdominal discomfort, blood in stools or black stools or change in bowel habits. : No history of dysuria, frequency or incontinence. Musculoskeletal: Negative for joint pain or swelling and muscle pain. Skin: Negative for rash, lesions and itching. Hematology/Lymphology: Negative for prolonged bleeding, bruising easily or swollen nodes. Neuro: No history of headaches, syncope, paralysis, seizures or tremors. PHYSICAL EXAM: BP 147/84 Pulse 101 Temp 36.1 C (97 F) (Temporal) Resp 16 Ht 168.3 cm (5' 6.26 ) Wt 56.3 kg (124 lb 1.9 oz) SpO2 96% BMI 19.88 kg/m ECOG 1 Exam limited to gross visualization where appropriate due to COVID-19. Gen.: This is an age-appropriate patient in no acute distress. Head: Appears atraumatic with no visible lesions. Eyes: Pupils equally round and reactive to light, extraocular muscles are intact. Neck: Supple. Mouth: Masked. Respiratory: Appears to be respiring comfortably. Neurologic: Nonfocal to gross visualization. Alert and oriented 3. Psychiatric: No evidence of inappropriate anxiety or depression. Skin: Visible areas of skin without lesions, wounds or petechiae. Positive rash- mainly involving face and upper back. 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 - Visceral pleural invasion present. - Tumor invades into parietal pleural/chest wall adipose tissue. - Arterial invasion present. - Five hilar/peribronchial lymph nodes, negative for tumor (0/5). - Emphysema with patchy smoking-related interstitial fibrosis. - Margins negative. Molecular markers: RET rearrangement negative, ROS1 negative, BRAF negative, EGFR negative, HER-2 negative, KRAS G12C positive, ALK 1 negative, PD-L1 95% LABS: Hemoglobin (g/dL) Date Value 11/04/2023 12.5 07/03/2021 14.2 Hematocrit (%) Date Value 11/04/2023 37.1 07/03/2021 41.8 WBC (k/uL) Date Value 11/04/2023 5.59 07/03/2021 5.83 Platelet Count (k/uL) Date Value 11/04/2023 186 07/03/2021 265 RADIOLOGY/OTHER STUDIES: 10/21/2023 CT chest IMPRESSION: 1. Numerous bilateral pulmonary nodules. The largest nodule in the right lower lobe has increased in size when compared to prior exam. Other nodules are overall stable when compared to prior studies. 2. No evidence of intrathoracic lymphadenopathy. 09/15/2023 PET scan IMPRESSION: HEAD/NECK: * Hypermetabolic focus in the right tonsillar region with interval decreased FDG activity. * No hypermetabolic lymphadenopathy. CHEST: Interval improvement in the previously present hypermetabolic bilateral lung nodules with decreased size and FDG activity. Residual smaller nodules with mild/moderate uptake. Mild residual uptake in the right hilum. * Hypermetabolic left subpectoral soft tissue mass with interval decrease in FDG activity. ABDOMEN/PELVIS: * No FDG avid neoplastic process. MUSCULOSKELETAL: * No FDG avid neoplastic process. 05/12/2023 PET scan IMPRESSION: 1. NECK: * Increased size and hypermetabolism of right tonsillar mass, concerning for neoplasm. * New diffuse thyroid hypermetabolism, related to thyroiditis and possibly a side effect of the immune checkpoint inhibitor. 2. CHEST: * Increased size and hypermetabolism of left subpectoral node/mass. * Increased size, number, and hypermetabolism of bilateral metastatic pulmonary nodules.. 3. ABDOMEN/PELVIS: * No FDG avid neoplastic process. . 4. EXTREMITIES/SKELETON: * No suspicious FDG avid osseous lesion. 01/17/2023 PET scan IMPRESSION: 1. Neck: Persistent hypermetabolic focus in the right tonsillar region. 2. Chest: Interval decrease with decreased FDG activity associated with the left subpectoral region soft tissue mass. Mild residual uptake. Multiple persistent hypermetabolic bilateral lung nodules suspicious for metastases. 3. Abdomen and pelvis: No evidence of FDG avid neoplastic process 4. Skeleton: No hypermetabolic osseous lesions 01/03/2023 Chest CTA ([facility]) Bilateral hilar soft tissue nodules concerning for malignant lymph nodes. Developing nodularity of the right lung with the largest measuring up to 14 mm. 10/10/2022 PET scan IMPRESSION: 1. Neck: hypermetabolic focus in the right tonsillar/parapharyngeal region, similar to prior. 2. Chest: Hypermetabolic left subpectoral region mass. Hypermetabolic bilateral lung nodules. Findings concerning for progression of neoplastic process. 3. Abdomen and pelvis: No evidence of FDG avid neoplastic process 4. Skeleton: No hypermetabolic osseous lesions 09/17/2022 CT chest IMPRESSION: 1. Multiple new and enlarging bilateral pulmonary nodules, highly suspicious for progression of disease. 2. No evidence of new bulky intrathoracic lymphadenopathy. 09/17/2022 CT abdomen/pelvis IMPRESSION: 1. No evidence of abdominal or pelvic metastatic disease. 2. Findings compatible with a subcapsular hematoma within the spleen. 3. No evidence of abdominal or pelvic lymphadenopathy. 06/14/2022 CT Chest IMPRESSION: 1. Several indeterminate subcentimeter nodular opacities measuring up to 7 mm, new since 09/25/21. Consider interval follow-up. 2. Other noncalcified subcentimeter nodular opacities measuring less than 5 mm, stable. 3. New trace loculated left pleural effusion, most likely related to postoperative change. 06/11/2022 Chest xray IMPRESSION: A small loculated left pleural effusion is felt to have progressed in size from the prior study, as above. 04/12/2022 Bone scan ([facility]) Degenerative findings. No evidence of metastatic disease. 05/23/2022 MRI Lumbar Spine Impression: Heterogeneous appearance of the vertebral bodies stable from the prior exam, nonspecific. No enhancing mass. Mild to moderate discogenic changes L2-S1 grossly stable. For minimal stenosis at several levels as detailed. 10/31/2021 Brain MRI IMPRESSION: No evidence of an acute intracranial process. No intracranial enhancing lesion to suggest metastasis. 09/25/2021 CT chest IMPRESSION: Increased peripheral left upper lobe mass with adjacent curvilinear scarlike opacity concerning for neoplasm. No other acute thoracic disease. ASSESSMENT/PLAN: 1. 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 Status post left upper lobectomy and mediastinal lymphadenectomy 09/26/2021. The primary tumor involved the visceral and parietal pleura with evidence of invasion into the chest wall adipose tissue. Surgical margins negative. Postop it was recommended the patient receive adjuvant chemotherapy with cisplatin plus pemetrexed x4 cycles. He received his first cycle on 10/26/2021, and it was complicated by renal dysfunction. Subsequently the patient's treatment was changed to carboplatin plus pemetrexed. He completed his fourth cycle on 01/22/2022. After completing chemotherapy the patient received adjuvant radiation therapy to the left lung 03/26/2022 - 05/01/2022 (5400 cGy in 27 fractions). August 2022 the patient developed increasing cough and shortness of breath. CT scans 09/17/2022 revealed multiple bilateral pulmonary nodules, suspicious for metastases. PET scan 10/10/2022 revealed a hypermetabolic mass in the left subpectoral region plus bilateral pulmonary nodules consistent with metastatic disease. Biopsy was recommended but the patient declined. Subsequently it was elected to start systemic therapy with pembrolizumab, with plans to give 200 mg IV every 3 weeks. Pembrolizumab cycle 1 was given 10/21/2022. Palliative radiation therapy to the left upper chest wall given 10/28/2022 - 11/12/2022. The patient was seen on 11/11/2022 for pembrolizumab cycle 2, but treatment postponed due to elevated LFTs. Pembrolizumab resumed 12/06/2022 and continued every 3 weeks since. Restaging PET scan 01/17/2023 revealed significant improvement in the left chest wall mass, but persistent disease in the lungs bilaterally. Single agent pembrolizumab continued. When seen 04/22/2023 the patient complained of increasing pain over his left upper chest wall. Repeat PET scan 05/12/2023 revealed increased size and hypermetabolism of the right tonsillar mass, increased size and hypermetabolism of the left subpectoral mass, and increased size and number of bilateral lung metastases. Due to progressive disease pembrolizumab was discontinued. The primary tumor NGS analysis was positive for K-huong G12C mutation. For this reason it was elected to change treatment to targeted therapy with Lumakras. Treatment started 05/16/2023. Repeat PET scan 09/15/2023 significantly improved. For evaluation of increasing pain the patient underwent a repeat chest CT 10/21/2023 which revealed slight growth of several pulm nodules, otherwise relatively stable. At this time the patient will continue as is with Lumakras Will monitor closely, and consider chemotherapy if/when he is found to have progression of disease. Labs and PET scan in 3 weeks, return for follow-up in 4 weeks. 2. Carcinoma of the right tonsil Baseline PET and CT neck revealed suspicious abnormalities in the right tonsil. The patient was initially seen by [facility] on 07/26/2021, and clinical evaluation was most consistent with inflammatory/post-infectious findings. The patient was advised to stop chewing tobacco and continue close observation. Follow-up PET 05/12/2023 revealed significant increased size and metabolism of the right tonsillar mass. The patient was reevaluated by [facility] May 2023 and it was felt the mass was malignant. Recommendations were to proceed with palliative radiation therapy to the area. The patient received 5 fractions completed 06/24/2023. Currently stable. PET scan 09/15/2023 improved. He will follow-up with ENT and radiation oncology as scheduled. 3. Centrilobular emphysema (HCC) - ICD9: 492.8, ICD10: J43.2 Long history of tobacco abuse, quit September 2021. 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 4. Coronary artery disease Status post AMI 2015. Status post CABG x 4 in [place] 2015. Currently stable. Continue management per PCP/cardiology. 5. Peripheral vascular disease Status post balloon angioplasty right lower leg 2019. On long-term antiplatelet agents with Plavix and Pletal. Continue management per PCP/vascular surgery. 6. Cancer related pain Severe pain left upper chest wall August 2022, temporarily required Percocet. Pain initially resolved with radiation. February 2023 the patient developed recurrent pain, and currently uses Percocet as needed. Continue follow-up with [facility] palliative medicine. 7. Abnormal LFTs Labs from 11/11/2022 revealed significant elevation of the SGOT and SGPT, most likely transaminitis secondary to OTC supplements (fenbendazole +/- curcumin). After discontinuing these supplements the patient's LFTs normalized, but unfortunately he resumed taking them again on 12/06/2022 and his LFTs worsened. The patient discontinued the medications and his LFTs temporarily normalized. However, current LFTs are elevated. The patient drinks alcohol consistently, and was told to abstain. Will monitor LFTs closely and intervene accordingly if labs continue to worsen. 8. Anxiety - ICD9: 300.00, ICD10: F41.9 Continue Xanax as needed for anxiety. 9. Hypothyroidism due to medication - ICD9: 244.8, E980.5, ICD10: E03.2 Labs obtained 04/22/2023 revealed markedly elevated TSH consistent with immunotherapy induced hypothyroidism. Synthroid started 04/23/2023. Current dose 75 mcg daily as of 05/15/2023. The patient admits to being noncompliant with this medication, and was urged to take daily to improve his overall wellbeing. We will follow TFTs and adjust dosage accordingly. Pito Grigsby MD documented in this encounter [facility] 10-21-2023 Note [facility] 10-21-2023 Note [facility] 10-21-2023 Miscellaneous Notes Needs a face to face with me by 11/14/23 to continue controlled substance Rx. Looks like he already has an appointment scheduled. I refilled oxycodone to [facility] in [place] Pt here for CT-c/o extreme pain left side of chest Requesting additional pain medication. Stated not sure how many Percocets I have left at home documented in this encounter [facility] 10-20-2023 Note [facility] 10-20-2023 History of Present illness Narrative PATIENT NAME: Pedro Gu DATE: 10/20/2023 PRIMARY CARE PHYSICIAN: Dr. Christina Azul OTHER PHYSICIANS: Dr. Verito Whelan, Dr. Marianne Fields, Dr. Yo Tse ([facility]) Christina Tavarez Portions of this encounter note have been copied from the note from 09/22/2023 and has been updated where appropriate, and reflect my current medical decision making from today. CC: This is a 68 year old male with metastatic lung cancer, seen for scheduled follow-up and continued treatment. INTERIM HISTORY: Since the patient's last visit here he has remained on Lumakras 3 pills daily, started 05/16/2023. He appears to be tolerating the medication well. Over the past several weeks he has noticed increasing pain in around his left upper chest wall and shoulder area. He has some relief with his current pain medications. He has had no shortness of breath or new pulmonary symptoms. MEDICATIONS: Current Outpatient Medications Medication Sig levothyroxine (SYNTHROID) 75 mcg tablet Take 1 tablet by mouth once daily. sotorasib (LUMAKRAS) 320 mg tablet Take 3 tablets by mouth once daily. gabapentin (NEURONTIN) 300 mg capsule Take 1 capsule by mouth three times a day ALPRAZolam (XANAX) 0.25 mg tablet Take 0.25 mg by mouth three times a day as needed. ondansetron (ZOFRAN) 8 mg tablet Take 1 tablet by mouth every 8 hours as needed for nausea/vomiting. metoprolol tartrate, short acting, (LOPRESSOR) 25 mg tablet Take 50 mg by mouth twice daily. isosorbide mononitrate ER (IMDUR) 30 mg 24 hr tablet Take 30 mg by mouth once daily. cilostazol (PLETAL) 100 mg tablet Take 1 tablet by mouth twice daily. clopidogrel (PLAVIX) 75 mg tablet Take 1 tablet by mouth once daily. aspirin 81 mg chewable tablet Take 81 mg by mouth once daily. atorvastatin (LIPITOR) 40 mg tablet Take 40 mg by mouth once daily. No current facility-administered medications for this visit. ALLERGIES: ALLERGIES No Known Allergies PAST MEDICAL HISTORY: PAST MEDICAL HISTORY Diagnosis Date Carotid artery disease (HCC) bilateral COPD (chronic obstructive pulmonary disease) (HCC) Heart attack (HCC) History of non-ST elevation myocardial infarction (NSTEMI) HTN (hypertension) Hypertension 09/25/2021 Lung cancer (HCC) Malignant neoplasm of lower lobe of left lung (HCC) Peripheral arterial disease (HCC) 2019 R REGISTRATION COORDINATOR stent PAST SURGICAL HISTORY: PAST SURGICAL HISTORY Procedure Laterality Date BACK SURGERY HX 2019 CABG (4) VEIN GRAFTS & ARTERIAL GRAFT(S) 2016 LOWER EXTREMITY FUNNEL SETTER W/WO STENT Right 2019 right common femoral artery stent REMOVAL OF LUNG,LOBECTOMY Left 09/26/2021 VATS left upper lung wedge resection, completion lobectomy, lymph node dissection, application of Progel to staple line, intercostal nerve blocks for cancer FAMILY HISTORY: FAMILY HISTORY Problem Relation Age of Onset Lung Cancer Father Heart Attack Father Coronary Artery Disease Father SOCIAL HISTORY: Social History Tobacco Use Smoking status: Former Packs/day: 2.00 Years: 50.00 Additional pack years: 0.00 Total pack years: 100.00 Types: Cigarettes Start date: 1970 Passive exposure: Past Smokeless tobacco: Never Tobacco comments: was smoking on and off fully quit 09/14/21 Vaping Use Vaping Use: Never used Substance Use Topics Alcohol use: Yes Alcohol/week: 30.0 standard drinks of alcohol Types: 30 Cans of Beer (12oz) per week Comment: 4-9 beers per day Drug use: Never REVIEW OF SYSTEMS: General: No weight loss, malaise or fevers. HEENT: Negative for frequent or significant headaches. No changes in hearing or vision, no nose bleeds or other nasal problems. Respiratory: Negative for wheezing. Chronic shortness of breath. See HPI. Cardiovascular: Negative for chest pain, leg swelling or palpitations. GI: Negative for abdominal discomfort, blood in stools or black stools or change in bowel habits. : No history of dysuria, frequency or incontinence. Musculoskeletal: Negative for joint pain or swelling and muscle pain. Skin: Negative for rash, lesions and itching. Hematology/Lymphology: Negative for prolonged bleeding, bruising easily or swollen nodes. Neuro: No history of headaches, syncope, paralysis, seizures or tremors. PHYSICAL EXAM: BP 155/72 Pulse 82 Temp 36.3 C (97.3 F) (Temporal) Resp 18 Ht 168.3 cm (5' 6.26 ) Wt 57.5 kg (126 lb 12.2 oz) SpO2 98% BMI 20.30 kg/m ECOG 1 Exam limited to gross visualization where appropriate due to COVID-19. Gen.: This is an age-appropriate patient in no acute distress. Head: Appears atraumatic with no visible lesions. Eyes: Pupils equally round and reactive to light, extraocular muscles are intact. Neck: Supple. Mouth: Masked. Respiratory: Appears to be respiring comfortably. Neurologic: Nonfocal to gross visualization. Alert and oriented 3. Psychiatric: No evidence of inappropriate anxiety or depression. Skin: Visible areas of skin without lesions, wounds or petechiae. Positive rash- mainly involving face and upper back. 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 - Visceral pleural invasion present. - Tumor invades into parietal pleural/chest wall adipose tissue. - Arterial invasion present. - Five hilar/peribronchial lymph nodes, negative for tumor (0/5). - Emphysema with patchy smoking-related interstitial fibrosis. - Margins negative. Molecular markers: RET rearrangement negative, ROS1 negative, BRAF negative, EGFR negative, HER-2 negative, KRAS G12C positive, ALK 1 negative, PD-L1 95% LABS: Hemoglobin (g/dL) Date Value 10/20/2023 13.6 07/03/2021 14.2 Hematocrit (%) Date Value 10/20/2023 40.6 07/03/2021 41.8 WBC (k/uL) Date Value 10/20/2023 5.60 07/03/2021 5.83 Platelet Count (k/uL) Date Value 10/20/2023 214 07/03/2021 265 RADIOLOGY/OTHER STUDIES: 09/15/2023 PET scan IMPRESSION: HEAD/NECK: * Hypermetabolic focus in the right tonsillar region with interval decreased FDG activity. * No hypermetabolic lymphadenopathy. CHEST: Interval improvement in the previously present hypermetabolic bilateral lung nodules with decreased size and FDG activity. Residual smaller nodules with mild/moderate uptake. Mild residual uptake in the right hilum. * Hypermetabolic left subpectoral soft tissue mass with interval decrease in FDG activity. ABDOMEN/PELVIS: * No FDG avid neoplastic process. MUSCULOSKELETAL: * No FDG avid neoplastic process. 05/12/2023 PET scan IMPRESSION: 1. NECK: * Increased size and hypermetabolism of right tonsillar mass, concerning for neoplasm. * New diffuse thyroid hypermetabolism, related to thyroiditis and possibly a side effect of the immune checkpoint inhibitor. 2. CHEST: * Increased size and hypermetabolism of left subpectoral node/mass. * Increased size, number, and hypermetabolism of bilateral metastatic pulmonary nodules.. 3. ABDOMEN/PELVIS: * No FDG avid neoplastic process. . 4. EXTREMITIES/SKELETON: * No suspicious FDG avid osseous lesion. 01/17/2023 PET scan IMPRESSION: 1. Neck: Persistent hypermetabolic focus in the right tonsillar region. 2. Chest: Interval decrease with decreased FDG activity associated with the left subpectoral region soft tissue mass. Mild residual uptake. Multiple persistent hypermetabolic bilateral lung nodules suspicious for metastases. 3. Abdomen and pelvis: No evidence of FDG avid neoplastic process 4. Skeleton: No hypermetabolic osseous lesions 01/03/2023 Chest CTA ([facility] [place]) Bilateral hilar soft tissue nodules concerning for malignant lymph nodes. Developing nodularity of the right lung with the largest measuring up to 14 mm. 10/10/2022 PET scan IMPRESSION: 1. Neck: hypermetabolic focus in the right tonsillar/parapharyngeal region, similar to prior. 2. Chest: Hypermetabolic left subpectoral region mass. Hypermetabolic bilateral lung nodules. Findings concerning for progression of neoplastic process. 3. Abdomen and pelvis: No evidence of FDG avid neoplastic process 4. Skeleton: No hypermetabolic osseous lesions 09/17/2022 CT chest IMPRESSION: 1. Multiple new and enlarging bilateral pulmonary nodules, highly suspicious for progression of disease. 2. No evidence of new bulky intrathoracic lymphadenopathy. 09/17/2022 CT abdomen/pelvis IMPRESSION: 1. No evidence of abdominal or pelvic metastatic disease. 2. Findings compatible with a subcapsular hematoma within the spleen. 3. No evidence of abdominal or pelvic lymphadenopathy. 06/14/2022 CT Chest IMPRESSION: 1. Several indeterminate subcentimeter nodular opacities measuring up to 7 mm, new since 09/25/21. Consider interval follow-up. 2. Other noncalcified subcentimeter nodular opacities measuring less than 5 mm, stable. 3. New trace loculated left pleural effusion, most likely related to postoperative change. 06/11/2022 Chest xray IMPRESSION: A small loculated left pleural effusion is felt to have progressed in size from the prior study, as above. 04/12/2022 Bone scan ([facility]) Degenerative findings. No evidence of metastatic disease. 05/23/2022 MRI Lumbar Spine Impression: Heterogeneous appearance of the vertebral bodies stable from the prior exam, nonspecific. No enhancing mass. Mild to moderate discogenic changes L2-S1 grossly stable. For minimal stenosis at several levels as detailed. 10/31/2021 Brain MRI IMPRESSION: No evidence of an acute intracranial process. No intracranial enhancing lesion to suggest metastasis. 09/25/2021 CT chest IMPRESSION: Increased peripheral left upper lobe mass with adjacent curvilinear scarlike opacity concerning for neoplasm. No other acute thoracic disease. ASSESSMENT/PLAN: 1. 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 Status post left upper lobectomy and mediastinal lymphadenectomy 09/26/2021. The primary tumor involved the visceral and parietal pleura with evidence of invasion into the chest wall adipose tissue. Surgical margins negative. Postop it was recommended the patient receive adjuvant chemotherapy with cisplatin plus pemetrexed x4 cycles. He received his first cycle on 10/26/2021, and it was complicated by renal dysfunction. Subsequently the patient's treatment was changed to carboplatin plus pemetrexed. He completed his fourth cycle on 01/22/2022. After completing chemotherapy the patient received adjuvant radiation therapy to the left lung 03/26/2022 - 05/01/2022 (5400 cGy in 27 fractions). August 2022 the patient developed increasing cough and shortness of breath. CT scans 09/17/2022 revealed multiple bilateral pulmonary nodules, suspicious for metastases. PET scan 10/10/2022 revealed a hypermetabolic mass in the left subpectoral region plus bilateral pulmonary nodules consistent with metastatic disease. Biopsy was recommended but the patient declined. Subsequently it was elected to start systemic therapy with pembrolizumab, with plans to give 200 mg IV every 3 weeks. Pembrolizumab cycle 1 was given 10/21/2022. Palliative radiation therapy to the left upper chest wall given 10/28/2022 - 11/12/2022. The patient was seen on 11/11/2022 for pembrolizumab cycle 2, but treatment postponed due to elevated LFTs. Pembrolizumab resumed 12/06/2022 and continued every 3 weeks since. Restaging PET scan 01/17/2023 revealed significant improvement in the left chest wall mass, but persistent disease in the lungs bilaterally. Single agent pembrolizumab continued. When seen 04/22/2023 the patient complained of increasing pain over his left upper chest wall. Repeat PET scan 05/12/2023 revealed increased size and hypermetabolism of the right tonsillar mass, increased size and hypermetabolism of the left subpectoral mass, and increased size and number of bilateral lung metastases. Due to progressive disease pembrolizumab was discontinued. The primary tumor NGS analysis was positive for K-huong G12C mutation. For this reason it was elected to change treatment to targeted therapy with Lumakras. Treatment started 05/16/2023. Repeat PET scan 09/15/2023 significantly improved. On follow-up today he complains of increasing pain in and around his left shoulder and left upper chest wall. Local recurrence of his disease is suspected. We will arrange for a chest CT. Return for follow-up in 2 weeks. If/when he is found to have disease recurrence/progression we will need to change treatment to chemotherapy. 2. Carcinoma of the right tonsil Baseline PET and CT neck revealed suspicious abnormalities in the right tonsil. The patient was initially seen by [facility] on 07/26/2021, and clinical evaluation was most consistent with inflammatory/post-infectious findings. The patient was advised to stop chewing tobacco and continue close observation. Follow-up PET 05/12/2023 revealed significant increased size and metabolism of the right tonsillar mass. The patient was reevaluated by [facility] May 2023 and it was felt the mass was malignant. Recommendations were to proceed with palliative radiation therapy to the area. The patient received 5 fractions completed 06/24/2023. Currently stable. PET scan 09/15/2023 improved. He will follow-up with ENT and radiation oncology as scheduled. 3. Centrilobular emphysema (HCC) - ICD9: 492.8, ICD10: J43.2 Long history of tobacco abuse, quit September 2021. 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 4. Coronary artery disease Status post AMI 2015. Status post CABG x 4 in [place] 2015. Currently stable. Continue management per PCP/cardiology. 5. Peripheral vascular disease Status post balloon angioplasty right lower leg 2019. On long-term antiplatelet agents with Plavix and Pletal. Continue management per PCP/vascular surgery. 6. Cancer related pain Severe pain left upper chest wall August 2022, temporarily required Percocet. Pain initially resolved with radiation. February 2023 the patient developed recurrent pain, and currently uses Percocet as needed. Continue follow-up with [facility] palliative medicine. 7. Abnormal LFTs Labs from 11/11/2022 revealed significant elevation of the SGOT and SGPT, most likely transaminitis secondary to OTC supplements (fenbendazole +/- curcumin). After discontinuing these supplements the patient's LFTs normalized, but unfortunately he resumed taking them again on 12/06/2022 and his LFTs worsened. The patient discontinued the medications and his LFTs have remained normal since. He was again strictly told to permanently discontinue the supplements or he will not be able to receive standard treatment. 8. Anxiety - ICD9: 300.00, ICD10: F41.9 Continue Xanax as needed for anxiety. 9. Hypothyroidism due to medication - ICD9: 244.8, E980.5, ICD10: E03.2 Labs obtained 04/22/2023 revealed markedly elevated TSH consistent with immunotherapy induced hypothyroidism. Synthroid started 04/23/2023. Current dose 75 mcg daily as of 05/15/2023. The patient admits to being noncompliant with this medication, and was urged to take daily to improve his overall wellbeing. We will follow TFTs and adjust dosage accordingly. Pito Grigsby MD documented in this encounter [facility] 09-22-2023 Note [facility] 09-22-2023 History of Present illness Narrative Oncology Nutrition Therapy Reassessment Patient left after office visit with physician and did not stay for scheduled dietitian appointment. Signed by: Dominique Murphy MS, RDN, LD documented in this encounter [facility] 09-22-2023 Note [facility] 09-22-2023 History of Present illness Narrative PATIENT NAME: Pedro Gu DATE: 09/22/2023 PRIMARY CARE PHYSICIAN: Dr. Christina Azul OTHER PHYSICIANS: Dr. Verito Whelan, Dr. Marianne Fields, Dr. Yo Tse ([facility]) Christina Tavarez Portions of this encounter note have been copied from the note from 08/25/2023 and has been updated where appropriate, and reflect my current medical decision making from today. CC: This is a 68 year old male with metastatic lung cancer, seen for scheduled follow-up and continued treatment. INTERIM HISTORY: The patient remains on treatment with Lumakras 3 pills daily, started 05/16/2023. He appears to be tolerating the medication well. Shortly after starting his left chest wall pain resolved. However, over the past week or so he has noticed increased pain over his left upper chest wall. Not severe enough to take medications. He has had no shortness of breath or new pulmonary symptoms. The rash he had after his COVID vaccination has resolved. He remains very stressed about 3 cars currently broken down, and difficulties taking care of his 3 children at home at age 16, 18, and 21. MEDICATIONS: Current Outpatient Medications Medication Sig levothyroxine (SYNTHROID) 75 mcg tablet Take 1 tablet by mouth once daily. sotorasib (LUMAKRAS) 320 mg tablet Take 3 tablets by mouth once daily. gabapentin (NEURONTIN) 300 mg capsule Take 1 capsule by mouth three times a day levothyroxine (SYNTHROID) 75 mcg tablet Take 1 tablet by mouth once daily. Potassium Bicarb-Citric Acid (K-LYTE) 25 mEq disintegrating tablet Take 1 tablet by mouth once daily. ALPRAZolam (XANAX) 0.25 mg tablet Take 0.25 mg by mouth three times a day as needed. ondansetron (ZOFRAN) 8 mg tablet Take 1 tablet by mouth every 8 hours as needed for nausea/vomiting. metoprolol tartrate, short acting, (LOPRESSOR) 25 mg tablet Take 50 mg by mouth twice daily. isosorbide mononitrate ER (IMDUR) 30 mg 24 hr tablet Take 30 mg by mouth once daily. cilostazol (PLETAL) 100 mg tablet Take 1 tablet by mouth twice daily. clopidogrel (PLAVIX) 75 mg tablet Take 1 tablet by mouth once daily. aspirin 81 mg chewable tablet Take 81 mg by mouth once daily. atorvastatin (LIPITOR) 40 mg tablet Take 40 mg by mouth once daily. No current facility-administered medications for this visit. ALLERGIES: ALLERGIES No Known Allergies PAST MEDICAL HISTORY: PAST MEDICAL HISTORY Diagnosis Date Carotid artery disease (HCC) bilateral COPD (chronic obstructive pulmonary disease) (HCC) Heart attack (HCC) History of non-ST elevation myocardial infarction (NSTEMI) HTN (hypertension) Hypertension 09/25/2021 Lung cancer (HCC) Malignant neoplasm of lower lobe of left lung (HCC) Peripheral arterial disease (HCC) 2019 R REGISTRATION COORDINATOR stent PAST SURGICAL HISTORY: PAST SURGICAL HISTORY Procedure Laterality Date BACK SURGERY HX 2019 CABG (4) VEIN GRAFTS & ARTERIAL GRAFT(S) 2016 LOWER EXTREMITY FUNNEL SETTER W/WO STENT Right 2019 right common femoral artery stent REMOVAL OF LUNG,LOBECTOMY Left 09/26/2021 VATS left upper lung wedge resection, completion lobectomy, lymph node dissection, application of Progel to staple line, intercostal nerve blocks for cancer FAMILY HISTORY: FAMILY HISTORY Problem Relation Age of Onset Lung Cancer Father Heart Attack Father Coronary Artery Disease Father SOCIAL HISTORY: Social History Tobacco Use Smoking status: Former Packs/day: 2.00 Years: 50.00 Additional pack years: 0.00 Total pack years: 100.00 Types: Cigarettes Start date: 1970 Passive exposure: Past Smokeless tobacco: Never Tobacco comments: was smoking on and off fully quit 09/14/21 Vaping Use Vaping Use: Never used Substance Use Topics Alcohol use: Yes Alcohol/week: 30.0 standard drinks of alcohol Types: 30 Cans of Beer (12oz) per week Comment: 4-9 beers per day Drug use: Never REVIEW OF SYSTEMS: General: No weight loss, malaise or fevers. HEENT: Negative for frequent or significant headaches. No changes in hearing or vision, no nose bleeds or other nasal problems. Respiratory: Negative for wheezing. Chronic shortness of breath. See HPI. Cardiovascular: Negative for chest pain, leg swelling or palpitations. GI: Negative for abdominal discomfort, blood in stools or black stools or change in bowel habits. : No history of dysuria, frequency or incontinence. Musculoskeletal: Negative for joint pain or swelling and muscle pain. Skin: Negative for rash, lesions and itching. Hematology/Lymphology: Negative for prolonged bleeding, bruising easily or swollen nodes. Neuro: No history of headaches, syncope, paralysis, seizures or tremors. PHYSICAL EXAM: BP 142/78 Pulse 91 Temp 36.2 C (97.1 F) (Temporal) Resp 18 Ht 168.3 cm (5' 6.26 ) Wt 60.2 kg (132 lb 11.5 oz) SpO2 99% BMI 21.25 kg/m ECOG 1 Exam limited to gross visualization where appropriate due to COVID-19. Gen.: This is an age-appropriate patient in no acute distress. Head: Appears atraumatic with no visible lesions. Eyes: Pupils equally round and reactive to light, extraocular muscles are intact. Neck: Supple. Mouth: Masked. Respiratory: Appears to be respiring comfortably. Neurologic: Nonfocal to gross visualization. Alert and oriented 3. Psychiatric: No evidence of inappropriate anxiety or depression. Skin: Visible areas of skin without lesions, wounds or petechiae. Positive rash- mainly involving face and upper back. 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 - Visceral pleural invasion present. - Tumor invades into parietal pleural/chest wall adipose tissue. - Arterial invasion present. - Five hilar/peribronchial lymph nodes, negative for tumor (0/5). - Emphysema with patchy smoking-related interstitial fibrosis. - Margins negative. Molecular markers: RET rearrangement negative, ROS1 negative, BRAF negative, EGFR negative, HER-2 negative, KRAS G12C positive, ALK 1 negative, PD-L1 95% LABS: Hemoglobin (g/dL) Date Value 09/22/2023 13.5 07/03/2021 14.2 Hematocrit (%) Date Value 09/22/2023 40.7 07/03/2021 41.8 WBC (k/uL) Date Value 09/22/2023 4.03 07/03/2021 5.83 Platelet Count (k/uL) Date Value 09/22/2023 180 07/03/2021 265 RADIOLOGY/OTHER STUDIES: 09/15/2023 PET scan IMPRESSION: HEAD/NECK: * Hypermetabolic focus in the right tonsillar region with interval decreased FDG activity. * No hypermetabolic lymphadenopathy. CHEST: Interval improvement in the previously present hypermetabolic bilateral lung nodules with decreased size and FDG activity. Residual smaller nodules with mild/moderate uptake. Mild residual uptake in the right hilum. * Hypermetabolic left subpectoral soft tissue mass with interval decrease in FDG activity. ABDOMEN/PELVIS: * No FDG avid neoplastic process. MUSCULOSKELETAL: * No FDG avid neoplastic process. 05/12/2023 PET scan IMPRESSION: 1. NECK: * Increased size and hypermetabolism of right tonsillar mass, concerning for neoplasm. * New diffuse thyroid hypermetabolism, related to thyroiditis and possibly a side effect of the immune checkpoint inhibitor. 2. CHEST: * Increased size and hypermetabolism of left subpectoral node/mass. * Increased size, number, and hypermetabolism of bilateral metastatic pulmonary nodules.. 3. ABDOMEN/PELVIS: * No FDG avid neoplastic process. . 4. EXTREMITIES/SKELETON: * No suspicious FDG avid osseous lesion. 01/17/2023 PET scan IMPRESSION: 1. Neck: Persistent hypermetabolic focus in the right tonsillar region. 2. Chest: Interval decrease with decreased FDG activity associated with the left subpectoral region soft tissue mass. Mild residual uptake. Multiple persistent hypermetabolic bilateral lung nodules suspicious for metastases. 3. Abdomen and pelvis: No evidence of FDG avid neoplastic process 4. Skeleton: No hypermetabolic osseous lesions 01/03/2023 Chest CTA ([facility]) Bilateral hilar soft tissue nodules concerning for malignant lymph nodes. Developing nodularity of the right lung with the largest measuring up to 14 mm. 10/10/2022 PET scan IMPRESSION: 1. Neck: hypermetabolic focus in the right tonsillar/parapharyngeal region, similar to prior. 2. Chest: Hypermetabolic left subpectoral region mass. Hypermetabolic bilateral lung nodules. Findings concerning for progression of neoplastic process. 3. Abdomen and pelvis: No evidence of FDG avid neoplastic process 4. Skeleton: No hypermetabolic osseous lesions 09/17/2022 CT chest IMPRESSION: 1. Multiple new and enlarging bilateral pulmonary nodules, highly suspicious for progression of disease. 2. No evidence of new bulky intrathoracic lymphadenopathy. 09/17/2022 CT abdomen/pelvis IMPRESSION: 1. No evidence of abdominal or pelvic metastatic disease. 2. Findings compatible with a subcapsular hematoma within the spleen. 3. No evidence of abdominal or pelvic lymphadenopathy. 06/14/2022 CT Chest IMPRESSION: 1. Several indeterminate subcentimeter nodular opacities measuring up to 7 mm, new since 09/25/21. Consider interval follow-up. 2. Other noncalcified subcentimeter nodular opacities measuring less than 5 mm, stable. 3. New trace loculated left pleural effusion, most likely related to postoperative change. 06/11/2022 Chest xray IMPRESSION: A small loculated left pleural effusion is felt to have progressed in size from the prior study, as above. 04/12/2022 Bone scan ([facility]) Degenerative findings. No evidence of metastatic disease. 05/23/2022 MRI Lumbar Spine Impression: Heterogeneous appearance of the vertebral bodies stable from the prior exam, nonspecific. No enhancing mass. Mild to moderate discogenic changes L2-S1 grossly stable. For minimal stenosis at several levels as detailed. 10/31/2021 Brain MRI IMPRESSION: No evidence of an acute intracranial process. No intracranial enhancing lesion to suggest metastasis. 09/25/2021 CT chest IMPRESSION: Increased peripheral left upper lobe mass with adjacent curvilinear scarlike opacity concerning for neoplasm. No other acute thoracic disease. ASSESSMENT/PLAN: 1. 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 Status post left upper lobectomy and mediastinal lymphadenectomy 09/26/2021. The primary tumor involved the visceral and parietal pleura with evidence of invasion into the chest wall adipose tissue. Surgical margins negative. Postop it was recommended the patient receive adjuvant chemotherapy with cisplatin plus pemetrexed x4 cycles. He received his first cycle on 10/26/2021, and it was complicated by renal dysfunction. Subsequently the patient's treatment was changed to carboplatin plus pemetrexed. He completed his fourth cycle on 01/22/2022. After completing chemotherapy the patient received adjuvant radiation therapy to the left lung 03/26/2022 - 05/01/2022 (5400 cGy in 27 fractions). August 2022 the patient developed increasing cough and shortness of breath. CT scans 09/17/2022 revealed multiple bilateral pulmonary nodules, suspicious for metastases. PET scan 10/10/2022 revealed a hypermetabolic mass in the left subpectoral region plus bilateral pulmonary nodules consistent with metastatic disease. Biopsy was recommended but the patient declined. Subsequently it was elected to start systemic therapy with pembrolizumab, with plans to give 200 mg IV every 3 weeks. Pembrolizumab cycle 1 was given 10/21/2022. Palliative radiation therapy to the left upper chest wall given 10/28/2022 - 11/12/2022. The patient was seen on 11/11/2022 for pembrolizumab cycle 2, but treatment postponed due to elevated LFTs. Pembrolizumab resumed 12/06/2022 and continued every 3 weeks since. Restaging PET scan 01/17/2023 revealed significant improvement in the left chest wall mass, but persistent disease in the lungs bilaterally. Single agent pembrolizumab continued. When seen 04/22/2023 the patient complained of increasing pain over his left upper chest wall. Repeat PET scan 05/12/2023 revealed increased size and hypermetabolism of the right tonsillar mass, increased size and hypermetabolism of the left subpectoral mass, and increased size and number of bilateral lung metastases. Due to progressive disease pembrolizumab was discontinued. The primary tumor NGS analysis was positive for K-huong G12C mutation. For this reason it was elected to change treatment to targeted therapy with Lumakras. Treatment started 05/16/2023. Currently the patient is clinically improved clinic with decreased pain and swelling at the area of metastases. Follow-up PET scan 09/15/2023 significantly improved. At this time the patient will continue as is with Lumakras. Return in 4 weeks for follow-up. 2. Carcinoma of the right tonsil Baseline PET and CT neck revealed suspicious abnormalities in the right tonsil. The patient was initially seen by [facility]NT on 07/26/2021, and clinical evaluation was most consistent with inflammatory/post-infectious findings. The patient was advised to stop chewing tobacco and continue close observation. Follow-up PET 05/12/2023 revealed significant increased size and metabolism of the right tonsillar mass. The patient was reevaluated by [facility] May 2023 and it was felt the mass was malignant. Recommendations were to proceed with palliative radiation therapy to the area. The patient received 5 fractions completed 06/24/2023. Currently stable. PET scan 09/15/2023 improved. He will follow-up with ENT and radiation oncology as scheduled. 3. Centrilobular emphysema (HCC) - ICD9: 492.8, ICD10: J43.2 Long history of tobacco abuse, quit September 2021. 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 4. Coronary artery disease Status post AMI 2016. Status post CABG x 4 in [place] 2015. Currently stable. Continue management per PCP/cardiology. 5. Peripheral vascular disease Status post balloon angioplasty right lower leg 2019. On long-term antiplatelet agents with Plavix and Pletal. Continue management per PCP/vascular surgery. 6. Cancer related pain Severe pain left upper chest wall August 2022, temporarily required Percocet. Pain initially resolved with radiation. February 2023 the patient has had recurrent pain, and currently uses Percocet as needed. Continue follow-up with [facility] palliative medicine. 7. Abnormal LFTs Labs from 11/11/2022 revealed significant elevation of the SGOT and SGPT, most likely transaminitis secondary to OTC supplements (fenbendazole +/- curcumin). After discontinuing these supplements the patient's LFTs normalized, but unfortunately he resumed taking them again on 12/06/2022 and his LFTs worsened. The patient discontinued the medications and his LFTs have remained normal since. He was again strictly told to permanently discontinue the supplements or he will not be able to receive standard treatment. 8. Anxiety - ICD9: 300.00, ICD10: F41.9 Continue Xanax as needed for anxiety. 9. Hypothyroidism due to medication - ICD9: 244.8, E980.5, ICD10: E03.2 Labs obtained 04/22/2023 revealed markedly elevated TSH consistent with immunotherapy induced hypothyroidism. Synthroid started 04/23/2023. Current dose 75 mcg daily as of 05/15/2023. The patient admits to being noncompliant with this medication, and was urged to take daily to improve his overall wellbeing. Pito Grigsby MD documented in this encounter [facility] 09-15-2023 Note [facility] 08-27-2023 Miscellaneous Notes The following approved medication requests have been transmitted electronically. Requested Prescriptions Signed Prescriptions Disp Refills levothyroxine (SYNTHROID) 75 mcg tablet 30 tablet 1 Sig: Take 1 tablet by mouth once daily. Authorizing Provider: BRENT MILLER APRN.RONAL Pt notified and requests that a new prescription be sent to [facility] in [place]. WILIAM/Brent: script pended. Denita Rai RN Call placed to pt. No answer. Pt's voicemail is full. Unable to leave a message. Denita Rai RN ----- Message from Pito Grigsby MD sent at 08/26/2023 4:06 PM EST ----- Please inform the patient that he needs to resume Synthroid at his previous dose of 75 mcg daily. We will repeat TFTs on return visit. documented in this encounter [facility] 08-25-2023 Note [facility] 08-25-2023 History of Present illness Narrative PATIENT NAME: Pedro Gu DATE: 08/25/2023 PRIMARY CARE PHYSICIAN: Dr. Christina Azul OTHER PHYSICIANS: Dr. Verito Whelan, Dr. Marianne Fields, Dr. Yo Paynes ([facility]) Dr. Limon Portions of this encounter note have been copied from the note from 07/28/2023 and has been updated where appropriate, and reflect my current medical decision making from today. CC: This is a 68 year old male with metastatic lung cancer, seen for scheduled follow-up and continued treatment. INTERIM HISTORY: The patient remains on treatment with Lumakras 3 pills daily, started 05/16/2023. He appears to be tolerating the medication well. Shortly after starting his left chest wall pain resolved. Apparently the patient received a COVID vaccine in early July 2023. He subsequently developed an atypical rash over his left upper chest wall, left arm, and back. He appears to have developed a local skin infection in the area after using a metal lpn per diem . With recent antibiotics his skin lesions are slowly improving. MEDICATIONS: Current Outpatient Medications Medication Sig methylPREDNISolone (MEDROL DOSE-PACK) 4 mg Dose-Pack Take by mouth as directed. Per package instructions azithromycin (ZITHROMAX) 250 mg tablet TAKE 2 TABLETS by mouth today, THEN take 1 TABLET once a day FOR the next 4 DAYS. naloxone 4 mg/actuation nasal spray (NARCAN) Use 1 spray in one nostril as needed for overdose. May repeat every 2 to 3 min in alternating nostrils until medical assistance is available OLANZapine (ZYPREXA) 5 mg tablet Take 1 tablet by mouth daily at bedtime. gabapentin (NEURONTIN) 300 mg capsule Take 1 capsule by mouth three times a day levothyroxine (SYNTHROID) 75 mcg tablet Take 1 tablet by mouth once daily. sotorasib (LUMAKRAS) 320 mg tablet Take 3 tablets by mouth once daily. diphenhydrAMINE 12.5 mg/5 mL lidocaine visc 2% MAALOX 200-200-20 mg/5 mL nystatin prednisoLONE 15 mg/5 mL oral liquid 1:1:1:1:1 (CPD) Swish and Swallow 5 mL by mouth every 6 hours as needed. ketoconazole (NIZORAL) 2 % cream mix with mometasone and APPLY TO THE AFFECTED AREA(S) TWICE DAILY for 30 days mometasone (ELOCON) 0.1 % cream APPLY TO THE AFFECTED AREA(S) TWICE DAILY up to 3 (THREE) weeks NEEDED Potassium Bicarb-Citric Acid (K-LYTE) 25 mEq disintegrating tablet Take 1 tablet by mouth once daily. ALPRAZolam (XANAX) 0.25 mg tablet Take 0.25 mg by mouth three times a day as needed. ondansetron (ZOFRAN) 8 mg tablet Take 1 tablet by mouth every 8 hours as needed for nausea/vomiting. metoprolol tartrate, short acting, (LOPRESSOR) 25 mg tablet Take 50 mg by mouth twice daily. isosorbide mononitrate ER (IMDUR) 30 mg 24 hr tablet Take 30 mg by mouth once daily. cilostazol (PLETAL) 100 mg tablet Take 1 tablet by mouth twice daily. clopidogrel (PLAVIX) 75 mg tablet Take 1 tablet by mouth once daily. aspirin 81 mg chewable tablet Take 81 mg by mouth once daily. atorvastatin (LIPITOR) 40 mg tablet Take 40 mg by mouth once daily. No current facility-administered medications for this visit. ALLERGIES: ALLERGIES No Known Allergies PAST MEDICAL HISTORY: PAST MEDICAL HISTORY Diagnosis Date Carotid artery disease (HCC) bilateral COPD (chronic obstructive pulmonary disease) (HCC) Heart attack (HCC) History of non-ST elevation myocardial infarction (NSTEMI) HTN (hypertension) Hypertension 09/25/2021 Lung cancer (HCC) Malignant neoplasm of lower lobe of left lung (HCC) Peripheral arterial disease (HCC) 2019 R REGISTRATION COORDINATOR stent PAST SURGICAL HISTORY: PAST SURGICAL HISTORY Procedure Laterality Date BACK SURGERY HX 2019 CABG (4) VEIN GRAFTS & ARTERIAL GRAFT(S) 2016 LOWER EXTREMITY FUNNEL SETTER W/WO STENT Right 2019 right common femoral artery stent REMOVAL OF LUNG,LOBECTOMY Left 09/26/2021 VATS left upper lung wedge resection, completion lobectomy, lymph node dissection, application of Progel to staple line, intercostal nerve blocks for cancer FAMILY HISTORY: FAMILY HISTORY Problem Relation Age of Onset Lung Cancer Father Heart Attack Father Coronary Artery Disease Father SOCIAL HISTORY: Social History Tobacco Use Smoking status: Former Packs/day: 2.00 Years: 50.00 Additional pack years: 0.00 Total pack years: 100.00 Types: Cigarettes Start date: 1968 Passive exposure: Past Smokeless tobacco: Never Tobacco comments: was smoking on and off fully quit 09/14/21 Vaping Use Vaping Use: Never used Substance Use Topics Alcohol use: Yes Alcohol/week: 30.0 standard drinks of alcohol Types: 30 Cans of Beer (12oz) per week Comment: 4-9 beers per day Drug use: Never REVIEW OF SYSTEMS: General: No weight loss, malaise or fevers. HEENT: Negative for frequent or significant headaches. No changes in hearing or vision, no nose bleeds or other nasal problems. Respiratory: Negative for wheezing. Chronic shortness of breath. See HPI. Cardiovascular: Negative for chest pain, leg swelling or palpitations. GI: Negative for abdominal discomfort, blood in stools or black stools or change in bowel habits. : No history of dysuria, frequency or incontinence. Musculoskeletal: Negative for joint pain or swelling and muscle pain. Skin: Negative for rash, lesions and itching. Hematology/Lymphology: Negative for prolonged bleeding, bruising easily or swollen nodes. Neuro: No history of headaches, syncope, paralysis, seizures or tremors. PHYSICAL EXAM: BP 136/70 Pulse 67 Temp 36.4 C (97.6 F) (Temporal) Resp 18 Ht 168.3 cm (5' 6.26 ) Wt 61.2 kg (134 lb 14.7 oz) BMI 21.61 kg/m ECOG 0 Exam limited to gross visualization where appropriate due to COVID-19. Gen.: This is an age-appropriate patient in no acute distress. Head: Appears atraumatic with no visible lesions. Eyes: Pupils equally round and reactive to light, extraocular muscles are intact. Neck: Supple. Mouth: Masked. Respiratory: Appears to be respiring comfortably. Neurologic: Nonfocal to gross visualization. Alert and oriented 3. Psychiatric: No evidence of inappropriate anxiety or depression. Skin: Visible areas of skin without lesions, wounds or petechiae. Positive rash- mainly involving face and upper back. 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 - Visceral pleural invasion present. - Tumor invades into parietal pleural/chest wall adipose tissue. - Arterial invasion present. - Five hilar/peribronchial lymph nodes, negative for tumor (0/5). - Emphysema with patchy smoking-related interstitial fibrosis. - Margins negative. Molecular markers: RET rearrangement negative, ROS1 negative, BRAF negative, EGFR negative, HER-2 negative, KRAS G12C positive, ALK 1 negative, PD-L1 95% LABS: Hemoglobin (g/dL) Date Value 08/25/2023 13.2 07/03/2021 14.2 Hematocrit (%) Date Value 08/25/2023 39.4 07/03/2021 41.8 WBC (k/uL) Date Value 08/25/2023 5.19 07/03/2021 5.83 Platelet Count (k/uL) Date Value 08/25/2023 206 07/03/2021 265 RADIOLOGY/OTHER STUDIES: 05/12/2023 PET scan IMPRESSION: 1. NECK: * Increased size and hypermetabolism of right tonsillar mass, concerning for neoplasm. * New diffuse thyroid hypermetabolism, related to thyroiditis and possibly a side effect of the immune checkpoint inhibitor. 2. CHEST: * Increased size and hypermetabolism of left subpectoral node/mass. * Increased size, number, and hypermetabolism of bilateral metastatic pulmonary nodules.. 3. ABDOMEN/PELVIS: * No FDG avid neoplastic process. . 4. EXTREMITIES/SKELETON: * No suspicious FDG avid osseous lesion. 04/01/2023 chest x-ray IMPRESSION: 1. Postoperative changes involving the left perihilar/upper lung zone, as above. 2. 2.4 cm nodular opacity within the right lower lobe, appearing to have progressed in size when correlated to the prior PET/CT examination of 01/17/2023. 01/17/2023 PET scan IMPRESSION: 1. Neck: Persistent hypermetabolic focus in the right tonsillar region. 2. Chest: Interval decrease with decreased FDG activity associated with the left subpectoral region soft tissue mass. Mild residual uptake. Multiple persistent hypermetabolic bilateral lung nodules suspicious for metastases. 3. Abdomen and pelvis: No evidence of FDG avid neoplastic process 4. Skeleton: No hypermetabolic osseous lesions 01/03/2023 Chest CTA ([facility]) Bilateral hilar soft tissue nodules concerning for malignant lymph nodes. Developing nodularity of the right lung with the largest measuring up to 14 mm. 10/10/2022 PET scan IMPRESSION: 1. Neck: hypermetabolic focus in the right tonsillar/parapharyngeal region, similar to prior. 2. Chest: Hypermetabolic left subpectoral region mass. Hypermetabolic bilateral lung nodules. Findings concerning for progression of neoplastic process. 3. Abdomen and pelvis: No evidence of FDG avid neoplastic process 4. Skeleton: No hypermetabolic osseous lesions 09/17/2022 CT chest IMPRESSION: 1. Multiple new and enlarging bilateral pulmonary nodules, highly suspicious for progression of disease. 2. No evidence of new bulky intrathoracic lymphadenopathy. 09/17/2022 CT abdomen/pelvis IMPRESSION: 1. No evidence of abdominal or pelvic metastatic disease. 2. Findings compatible with a subcapsular hematoma within the spleen. 3. No evidence of abdominal or pelvic lymphadenopathy. 06/14/2022 CT Chest IMPRESSION: 1. Several indeterminate subcentimeter nodular opacities measuring up to 7 mm, new since 09/25/21. Consider interval follow-up. 2. Other noncalcified subcentimeter nodular opacities measuring less than 5 mm, stable. 3. New trace loculated left pleural effusion, most likely related to postoperative change. 06/11/2022 Chest xray IMPRESSION: A small loculated left pleural effusion is felt to have progressed in size from the prior study, as above. 04/12/2022 Bone scan ([facility]) Degenerative findings. No evidence of metastatic disease. 05/23/2022 MRI Lumbar Spine Impression: Heterogeneous appearance of the vertebral bodies stable from the prior exam, nonspecific. No enhancing mass. Mild to moderate discogenic changes L2-S1 grossly stable. For minimal stenosis at several levels as detailed. 10/31/2021 Brain MRI IMPRESSION: No evidence of an acute intracranial process. No intracranial enhancing lesion to suggest metastasis. 09/25/2021 CT chest IMPRESSION: Increased peripheral left upper lobe mass with adjacent curvilinear scarlike opacity concerning for neoplasm. No other acute thoracic disease. ASSESSMENT/PLAN: 1. 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 Status post left upper lobectomy and mediastinal lymphadenectomy 09/26/2021. The primary tumor involved the visceral and parietal pleura with evidence of invasion into the chest wall adipose tissue. Surgical margins negative. Postop it was recommended the patient receive adjuvant chemotherapy with cisplatin plus pemetrexed x4 cycles. He received his first cycle on 10/26/2021, and it was complicated by renal dysfunction. Subsequently the patient's treatment was changed to carboplatin plus pemetrexed. He completed his fourth cycle on 01/22/2022. After completing chemotherapy the patient received adjuvant radiation therapy to the left lung 03/26/2022 - 05/01/2022 (5400 cGy in 27 fractions). August 2022 the patient developed increasing cough and shortness of breath. CT scans 09/17/2022 revealed multiple bilateral pulmonary nodules, suspicious for metastases. PET scan 10/10/2022 revealed a hypermetabolic mass in the left subpectoral region plus bilateral pulmonary nodules consistent with metastatic disease. Biopsy was recommended but the patient declined. Subsequently it was elected to start systemic therapy with pembrolizumab, with plans to give 200 mg IV every 3 weeks. Pembrolizumab cycle 1 was given 10/21/2022. Palliative radiation therapy to the left upper chest wall given 10/28/2022 - 11/12/2022. The patient was seen on 11/11/2022 for pembrolizumab cycle 2, but treatment postponed due to elevated LFTs. Pembrolizumab resumed 12/06/2022 and continued every 3 weeks since. Restaging PET scan 01/17/2023 revealed significant improvement in the left chest wall mass, but persistent disease in the lungs bilaterally. Single agent pembrolizumab continued. When seen 04/22/2023 the patient complained of increasing pain over his left upper chest wall. Repeat PET scan 05/12/2023 revealed increased size and hypermetabolism of the right tonsillar mass, increased size and hypermetabolism of the left subpectoral mass, and increased size and number of bilateral lung metastases. Due to progressive disease pembrolizumab was discontinued. The primary tumor NGS analysis was positive for K-huong G12C mutation. For this reason it was elected to change treatment to targeted therapy with Lumakras. Treatment started 05/16/2023. Currently the patient is much improved clinically with decreased pain and swelling at the area of metastasis. At this time the patient will continue as is with Lumakras. Return in 4 weeks for follow-up. Prior to return we will restage with a PET scan. The patient had many questions concerning appropriate diet for his cancer. Per patient request he will be referred to oncology nutrition. 2. Carcinoma of the right tonsil Baseline PET and CT neck revealed suspicious abnormalities in the right tonsil. The patient was initially seen by [facility] on 07/26/2021, and clinical evaluation was most consistent with inflammatory/post-infectious findings. The patient was advised to stop chewing tobacco and continue close observation. Follow-up PET 05/12/2023 revealed significant increased size and metabolism of the right tonsillar mass. The patient was reevaluated [facility] May 2023 and it was felt the mass was malignant. Recommendations were to proceed with palliative radiation therapy to the area. The patient received 5 fractions completed 06/24/2023. Currently stable. He will follow-up with ENT and radiation oncology as scheduled. 3. Centrilobular emphysema (HCC) - ICD9: 492.8, ICD10: J43.2 Long history of tobacco abuse, quit September 2021. 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 4. Coronary artery disease Status post AMI 2015. Status post CABG x 4 in [place] 2015. Currently stable. Continue management per PCP/cardiology. 5. Peripheral vascular disease Status post balloon angioplasty right lower leg 2019. On long-term antiplatelet agents with Plavix and Pletal. Continue management per PCP/vascular surgery. 6. Cancer related pain Severe pain left upper chest wall August 2022, temporarily required Percocet. Pain initially resolved with radiation. February 2023 the patient has had recurrent pain, and currently uses Percocet as needed. 7. Abnormal LFTs Labs from 11/11/2022 revealed significant elevation of the SGOT and SGPT, most likely transaminitis secondary to OTC supplements (fenbendazole +/- curcumin). After discontinuing these supplements the patient's LFTs normalized, but unfortunately he resumed taking them again on 12/06/2022 and his LFTs worsened. The patient discontinued the medications and his LFTs have remained normal since. He was again strictly told to permanently discontinue the supplements or he will not be able to receive standard treatment. 8. Anxiety - ICD9: 300.00, ICD10: F41.9 Continue Xanax as needed for anxiety. 9. Hypothyroidism due to medication - ICD9: 244.8, E980.5, ICD10: E03.2 Labs obtained 04/22/2023 revealed markedly elevated TSH consistent with immunotherapy induced hypothyroidism. Synthroid started 04/23/2023. Current dose 75 mcg daily as of 05/15/2023. On follow-up today the patient admits to noncompliance with the medication. We will repeat TFTs today and adjust his Synthroid dosage accordingly. Pito Grigsby MD documented in this encounter [facility] 08-15-2023 Note [facility] 08-08-2023 Note HNO ID: [id number] Author: MARYJO FISH APRN.RN DERMATOLOGY Service: ? Author Type: Nurse Practitioner Type: Progress Notes Filed: 08/08/2023 13:54 Note Text: No show [facility] 07-28-2023 Note [facility] 06-30-2023 Note [facility] 06-30-2023 History of Present illness Narrative PATIENT NAME: Pedro Gu DATE: 06/30/2023 PRIMARY CARE PHYSICIAN: Dr. Christina Azul OTHER PHYSICIANS: Dr. Verito Whelan, Dr. Marianne Fields, Dr. Yo Paynes ([facility]) Dr. Liomn Portions of this encounter note have been copied from the note from 06/02/2023 and has been updated where appropriate, and reflect my current medical decision making from today. CC: This is a 68 year old male with metastatic lung cancer, seen for scheduled follow-up and continued treatment. INTERIM HISTORY: Since the patient's last visit here he was reevaluated by [facility] on 05/27/2023. It was felt the right tonsillar mass was malignant, most likely a second primary versus atypical metastasis from his primary lung cancer. Regardless, it was elected not to biopsy and proceed with palliative radiation to the area. The patient received 5 fractions completed 06/24/2023. He tolerated the radiation well, and since then has noted decreased pain. No difficulties with swallowing. Otherwise the patient has had no significant medical changes. He remains in [facility] for his metastatic lung cancer, and is tolerating the medication well. Since starting [facility] [facility] his left chest wall pain has resolved and he has felt well overall. He has been able to stop all pain medications. MEDICATIONS: Current Outpatient Medications Medication Sig oxyCODONE IR (ROXICODONE) 5 mg immediate release tablet Take 1-2 tablets by mouth every 6 hours as needed for pain naloxone 4 mg/actuation nasal spray (NARCAN) Use 1 spray in one nostril as needed for overdose. May repeat every 2 to 3 min in alternating nostrils until medical assistance is available OLANZapine (ZYPREXA) 5 mg tablet Take 1 tablet by mouth daily at bedtime. gabapentin (NEURONTIN) 300 mg capsule Take 1 capsule by mouth three times a day levothyroxine (SYNTHROID) 75 mcg tablet Take 1 tablet by mouth once daily. sotorasib (LUMAKRAS) 320 mg tablet Take 3 tablets by mouth once daily. diphenhydrAMINE 12.5 mg/5 mL lidocaine visc 2% MAALOX 200-200-20 mg/5 mL nystatin prednisoLONE 15 mg/5 mL oral liquid 1:1:1:1:1 (CPD) Swish and Swallow 5 mL by mouth every 6 hours as needed. ketoconazole (NIZORAL) 2 % cream mix with mometasone and APPLY TO THE AFFECTED AREA(S) TWICE DAILY for 30 days mometasone (ELOCON) 0.1 % cream APPLY TO THE AFFECTED AREA(S) TWICE DAILY up to 3 (THREE) weeks NEEDED Potassium Bicarb-Citric Acid (K-LYTE) 25 mEq disintegrating tablet Take 1 tablet by mouth once daily. ALPRAZolam (XANAX) 0.25 mg tablet Take 0.25 mg by mouth three times a day as needed. ondansetron (ZOFRAN) 8 mg tablet Take 1 tablet by mouth every 8 hours as needed for nausea/vomiting. metoprolol tartrate, short acting, (LOPRESSOR) 25 mg tablet Take 50 mg by mouth twice daily. isosorbide mononitrate ER (IMDUR) 30 mg 24 hr tablet Take 30 mg by mouth once daily. cilostazol (PLETAL) 100 mg tablet Take 1 tablet by mouth twice daily. clopidogrel (PLAVIX) 75 mg tablet Take 1 tablet by mouth once daily. aspirin 81 mg chewable tablet Take 81 mg by mouth once daily. atorvastatin (LIPITOR) 40 mg tablet Take 40 mg by mouth once daily. No current facility-administered medications for this visit. ALLERGIES: ALLERGIES No Known Allergies PAST MEDICAL HISTORY: PAST MEDICAL HISTORY Diagnosis Date Carotid artery disease (HCC) bilateral COPD (chronic obstructive pulmonary disease) (HCC) Heart attack (HCC) History of non-ST elevation myocardial infarction (NSTEMI) HTN (hypertension) Hypertension 09/25/2021 Lung cancer (HCC) Malignant neoplasm of lower lobe of left lung (HCC) Peripheral arterial disease (HCC) 2019 R REGISTRATION COORDINATOR stent PAST SURGICAL HISTORY: PAST SURGICAL HISTORY Procedure Laterality Date BACK SURGERY HX 2019 CABG (4) VEIN GRAFTS & ARTERIAL GRAFT(S) 2016 LOWER EXTREMITY FUNNEL SETTER W/WO STENT Right 2019 right common femoral artery stent REMOVAL OF LUNG,LOBECTOMY Left 09/26/2021 VATS left upper lung wedge resection, completion lobectomy, lymph node dissection, application of Progel to staple line, intercostal nerve blocks for cancer FAMILY HISTORY: FAMILY HISTORY Problem Relation Age of Onset Lung Cancer Father Heart Attack Father Coronary Artery Disease Father SOCIAL HISTORY: Social History Tobacco Use Smoking status: Former Packs/day: 2.00 Years: 50.00 Additional pack years: 0.00 Total pack years: 100.00 Types: Cigarettes Start date: 1968 Passive exposure: Past Smokeless tobacco: Never Tobacco comments: was smoking on and off fully quit 09/14/21 Vaping Use Vaping Use: Never used Substance Use Topics Alcohol use: Yes Alcohol/week: 30.0 standard drinks of alcohol Types: 30 Cans of Beer (12oz) per week Comment: 4-9 beers per day Drug use: Never REVIEW OF SYSTEMS: General: No weight loss, malaise or fevers. HEENT: Negative for frequent or significant headaches. No changes in hearing or vision, no nose bleeds or other nasal problems. Respiratory: Negative for wheezing. Chronic shortness of breath. See HPI. Cardiovascular: Negative for chest pain, leg swelling or palpitations. GI: Negative for abdominal discomfort, blood in stools or black stools or change in bowel habits. : No history of dysuria, frequency or incontinence. Musculoskeletal: Negative for joint pain or swelling and muscle pain. Skin: Negative for rash, lesions and itching. Hematology/Lymphology: Negative for prolonged bleeding, bruising easily or swollen nodes. Neuro: No history of headaches, syncope, paralysis, seizures or tremors. PHYSICAL EXAM: BP 119/66 Pulse 84 Temp 36.2 C (97.1 F) (Temporal) Resp 16 Ht 168.3 cm (5' 6.26 ) Wt 63 kg (139 lb) BMI 22.26 kg/m ECOG 0 Exam limited to gross visualization where appropriate due to COVID-19. Gen.: This is an age-appropriate patient in no acute distress. Head: Appears atraumatic with no visible lesions. Eyes: Pupils equally round and reactive to light, extraocular muscles are intact. Neck: Supple. Mouth: Masked. Respiratory: Appears to be respiring comfortably. Neurologic: Nonfocal to gross visualization. Alert and oriented 3. Psychiatric: No evidence of inappropriate anxiety or depression. Skin: Visible areas of skin without lesions, wounds or petechiae. Positive rash- mainly involving face and upper back. 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 - Visceral pleural invasion present. - Tumor invades into parietal pleural/chest wall adipose tissue. - Arterial invasion present. - Five hilar/peribronchial lymph nodes, negative for tumor (0/5). - Emphysema with patchy smoking-related interstitial fibrosis. - Margins negative. Molecular markers: RET rearrangement negative, ROS1 negative, BRAF negative, EGFR negative, HER-2 negative, KRAS G12C positive, ALK 1 negative, PD-L1 95% LABS: Hemoglobin (g/dL) Date Value 06/30/2023 11.7 07/03/2021 14.2 Hematocrit (%) Date Value 06/30/2023 34.6 07/03/2021 41.8 WBC (k/uL) Date Value 06/30/2023 6.00 07/03/2021 5.83 Platelet Count (k/uL) Date Value 06/30/2023 223 07/03/2021 265 RADIOLOGY/OTHER STUDIES: 05/12/2023 PET scan IMPRESSION: 1. NECK: * Increased size and hypermetabolism of right tonsillar mass, concerning for neoplasm. * New diffuse thyroid hypermetabolism, related to thyroiditis and possibly a side effect of the immune checkpoint inhibitor. 2. CHEST: * Increased size and hypermetabolism of left subpectoral node/mass. * Increased size, number, and hypermetabolism of bilateral metastatic pulmonary nodules.. 3. ABDOMEN/PELVIS: * No FDG avid neoplastic process. . 4. EXTREMITIES/SKELETON: * No suspicious FDG avid osseous lesion. 04/01/2023 chest x-ray IMPRESSION: 1. Postoperative changes involving the left perihilar/upper lung zone, as above. 2. 2.4 cm nodular opacity within the right lower lobe, appearing to have progressed in size when correlated to the prior PET/CT examination of 01/17/2023. 01/17/2023 PET scan IMPRESSION: 1. Neck: Persistent hypermetabolic focus in the right tonsillar region. 2. Chest: Interval decrease with decreased FDG activity associated with the left subpectoral region soft tissue mass. Mild residual uptake. Multiple persistent hypermetabolic bilateral lung nodules suspicious for metastases. 3. Abdomen and pelvis: No evidence of FDG avid neoplastic process 4. Skeleton: No hypermetabolic osseous lesions 01/03/2023 Chest CTA ([facility]) Bilateral hilar soft tissue nodules concerning for malignant lymph nodes. Developing nodularity of the right lung with the largest measuring up to 14 mm. 10/10/2022 PET scan IMPRESSION: 1. Neck: hypermetabolic focus in the right tonsillar/parapharyngeal region, similar to prior. 2. Chest: Hypermetabolic left subpectoral region mass. Hypermetabolic bilateral lung nodules. Findings concerning for progression of neoplastic process. 3. Abdomen and pelvis: No evidence of FDG avid neoplastic process 4. Skeleton: No hypermetabolic osseous lesions 09/17/2022 CT chest IMPRESSION: 1. Multiple new and enlarging bilateral pulmonary nodules, highly suspicious for progression of disease. 2. No evidence of new bulky intrathoracic lymphadenopathy. 09/17/2022 CT abdomen/pelvis IMPRESSION: 1. No evidence of abdominal or pelvic metastatic disease. 2. Findings compatible with a subcapsular hematoma within the spleen. 3. No evidence of abdominal or pelvic lymphadenopathy. 06/14/2022 CT Chest IMPRESSION: 1. Several indeterminate subcentimeter nodular opacities measuring up to 7 mm, new since 09/25/21. Consider interval follow-up. 2. Other noncalcified subcentimeter nodular opacities measuring less than 5 mm, stable. 3. New trace loculated left pleural effusion, most likely related to postoperative change. 06/11/2022 Chest xray IMPRESSION: A small loculated left pleural effusion is felt to have progressed in size from the prior study, as above. 04/12/2022 Bone scan ([facility]) Degenerative findings. No evidence of metastatic disease. 05/23/2022 MRI Lumbar Spine Impression: Heterogeneous appearance of the vertebral bodies stable from the prior exam, nonspecific. No enhancing mass. Mild to moderate discogenic changes L2-S1 grossly stable. For minimal stenosis at several levels as detailed. 10/31/2021 Brain MRI IMPRESSION: No evidence of an acute intracranial process. No intracranial enhancing lesion to suggest metastasis. 09/25/2021 CT chest IMPRESSION: Increased peripheral left upper lobe mass with adjacent curvilinear scarlike opacity concerning for neoplasm. No other acute thoracic disease. ASSESSMENT/PLAN: 1. 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 Status post left upper lobectomy and mediastinal lymphadenectomy 09/26/2021. The primary tumor involved the visceral and parietal pleura with evidence of invasion into the chest wall adipose tissue. Surgical margins negative. Postop it was recommended the patient receive adjuvant chemotherapy with cisplatin plus pemetrexed x4 cycles. He received his first cycle on 10/26/2021, and it was complicated by renal dysfunction. Subsequently the patient's treatment was changed to carboplatin plus pemetrexed. He completed his fourth cycle on 01/22/2022. After completing chemotherapy the patient received adjuvant radiation therapy to the left lung 03/26/2022 - 05/01/2022 (5400 cGy in 27 fractions). August 2022 the patient developed increasing cough and shortness of breath. CT scans 09/17/2022 revealed multiple bilateral pulmonary nodules, suspicious for metastases. PET scan 10/10/2022 revealed a hypermetabolic mass in the left subpectoral region plus bilateral pulmonary nodules consistent with metastatic disease. Biopsy was recommended but the patient declined. Subsequently it was elected to start systemic therapy with pembrolizumab, with plans to give 200 mg IV every 3 weeks. Pembrolizumab cycle 1 was given 10/21/2022. Palliative radiation therapy to the left upper chest wall given 10/28/2022 - 11/12/2022. The patient was seen on 11/11/2022 for pembrolizumab cycle 2, but treatment postponed due to elevated LFTs. Pembrolizumab resumed 12/06/2022 and continued every 3 weeks since. Restaging PET scan 01/17/2023 revealed significant improvement in the left chest wall mass, but persistent disease in the lungs bilaterally. Single agent pembrolizumab continued. When seen 04/22/2023 the patient complained of increasing pain over his left upper chest wall. Repeat PET scan 05/12/2023 revealed increased size and hypermetabolism of the right tonsillar mass, increased size and hypermetabolism of the left subpectoral mass, and increased size and number of bilateral lung metastases. Due to progressive disease pembrolizumab was discontinued. 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 For this reason it was elected to change treatment to targeted therapy with Lumakras. Treatment started 05/16/2023. Currently the patient is much improved clinically with decreased pain and swelling at the area of metastasis. At this time the patient will continue azithromycin Lumykras. Return in 4 weeks for follow-up and labs. The patient returns we will schedule restaging CT scans to be done in 3 to 4 months. If the patient does not tolerate or respond to Lumykras would consider third line treatment with carboplatin/Abraxane +/- immunotherapy. 2. Carcinoma of the right tonsil Baseline PET and CT neck revealed suspicious abnormalities in the right tonsil. The patient was initially seen by [facility] on 07/26/2021, and clinical evaluation was most consistent with inflammatory/post-infectious findings. The patient was advised to stop chewing tobacco and continue close observation. Follow-up PET 05/12/2023 revealed significant increased size and metabolism of the right tonsillar mass. The patient was reevaluated [facility] May 2023 and it was felt the mass was malignant. Recommendations were to proceed with palliative radiation therapy to the area. The patient received 5 fractions completed 06/24/2023. Currently stable. He will follow-up with ENT and radiation oncology as scheduled. 3. Centrilobular emphysema (HCC) - ICD9: 492.8, ICD10: J43.2 Long history of tobacco abuse, quit September 2021. 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 4. Coronary artery disease Status post AMI 2015. Status post CABG x 4 in [place] 2015. Currently stable. Continue management per PCP/cardiology. 5. Peripheral vascular disease Status post balloon angioplasty right lower leg 2019. On long-term antiplatelet agents with Plavix and Pletal. Continue management per PCP/vascular surgery. 6. Cancer related pain Severe pain left upper chest wall August 2022, temporarily required Percocet. Pain initially resolved with radiation. February 2023 the patient has had recurrent pain, and currently uses Percocet as needed. 7. Abnormal LFTs Labs from 11/11/2022 revealed significant elevation of the SGOT and SGPT, most likely transaminitis secondary to OTC supplements (fenbendazole +/- curcumin). After discontinuing these supplements the patient's LFTs normalized, but unfortunately he resumed taking them again on 12/06/2022 and his LFTs worsened. The patient discontinued the medications and his LFTs have remained normal since. He was again strictly told to permanently discontinue the supplements or he will not be able to receive standard treatment. 8. Anxiety - ICD9: 300.00, ICD10: F41.9 Continue Xanax as needed for anxiety. 9. Hypothyroidism due to medication - ICD9: 244.8, E980.5, ICD10: E03.2 Labs obtained 04/22/2023 revealed markedly elevated TSH consistent with immunotherapy induced hypothyroidism. Synthroid started 04/23/2023. Currently on 75 mcg as of 05/15/2023.. Will monitor TFTs and adjust Synthroid dosage accordingly. Pito Grigsby MD documented in this encounter [facility] 06-30-2023 Note [facility] 06-24-2023 Note [facility] 06-23-2023 Note [facility] 06-13-2023 Instructions Maryjo Fish APRN.RONAL - 06/13/2023 9:54 AM EST Maryjo Fish CNP Department of Palliative and Supportive Care Palliative Care - Specialty services in symptom management and support For questions or prescription refills, call: [phone] Friday - Friday 9AM-5PM LASHAY Evans, RN - Admitting Representative Please call 3-5 days in advance for medication refills Evenings, Weekends, Holidays: [phone] (ask for palliative medicine on-call provider) For appointments, cancellations or reschedule, call: [phone] documented in this encounter [facility] 06-13-2023 History of Present illness Narrative PALLIATIVE MEDICINE PROGRESS NOTE SERVICE DATE: 06/13/2023 Primary Site of Disease/Medical Illness: Lung Site of Metastasis: invasion of the visceral pleura and chest wall adipose tissue, arterial invasion present CHIEF COMPLAINT: Pain PERTINENT MEDICAL HISTORY: Anxiety, Centrilobular emphysema, CAD, PVD Subjective Continues persistent pain over his left upper chest wall radiating to left shoulder and down left arm, minimal relief with two percocet at a time. Described as a mix of nocieptive and neuropathic pain. It has improved since starting Lumakras and persistent cough has stopped as well. He is not using percocet as much. At times he has flare ups and will require two percocet. He is comfortable at todays visit. Gabapentin has improved shoulder pain, but he is using it prn. Constipation controlled with Miralax and Senakot Poor appetite due to pain and nausea. Continues xanax tid for anxiety prescribed by pcp. Using olanzapine nightly, it has improved anxiety and sleep. Modified ESAS ([place] Symptom Assessment Scale) Information Provided By: Patient Pain: Mild Nausea: None Loss of Appetite: None Constipation: None Shortness of Breath: None Drowsiness: None Tiredness: Mild Depression: None Anxiety: Mild Objective ECOG PERFORMANCE STATUS: 1- Restricted in physically strenuous activity. Carries out light duty. PHYSICAL EXAMINATION: Vital signs: There were no vitals taken for this visit. Last 1 Encounter Temp Readings: Date: Temp: Temp Src: 06/02/2023 36.4 C (97.6 F) Temporal Last 1 Encounter Resp Readings: Date: Resp: 06/02/2023 16 Last 1 Encounter Pulse Readings: Date: Pulse: 06/02/2023 98 Last 1 Encounter BP Readings: Date: BP: 06/02/2023 160/101 Physical Exam Constitutional: Appearance: Normal appearance. HENT: Head: Normocephalic and atraumatic. Right Ear: Hearing and external ear normal. Left Ear: Hearing and external ear normal. Nose: Nose normal. No rhinorrhea. Mouth/Throat: Lips: [place]. Mouth: Mucous membranes are moist. No oral lesions. Eyes: General: Lids are normal. Vision grossly intact. Neck: Thyroid: No thyroid mass. Pulmonary: Effort: Pulmonary effort is normal. Musculoskeletal: Cervical back: Full passive range of motion without pain. Skin: General: Skin is warm and dry. Capillary Refill: Capillary refill takes less than 2 seconds. Neurological: Mental Status: He is alert and oriented to person, place, and time. Psychiatric: Attention and Perception: Attention normal. Mood and Affect: Mood normal. Speech: Speech normal. Behavior: Behavior is cooperative. DATA: Diagnostic tests reviewed for today's visit: Most recent labs and imaging results. Estimated Creatinine Clearance: 72.9 mL/min (based on SCr of 0.9 mg/dL). Opioid Management: Yes Indication for Opioid Prescribing: Cancer related pain ORT-OUD Score: 1 A score of 3 or higher may indicate a higher risk for future development of aberrant drug related behavior or opioid use disorder. Informed consent for chronic opiate therapy obtained and written pain agreement: On file Naloxone offered?: Yes, accepted Course of treatment, patient's response and adherence to the prescribed treatment plan reviewed, including non-pharmacological and non-opioid treatment modalities? Yes Have any complications or exacerbations of the underlying condition causing the pain been reviewed? Yes How much does pain impede patient s ability to engage in work or other purposeful activities, interfere with your activities of daily living, physical activity, or quality of your family life and social activities? Significantly Aberrancies in pain panel? Pending Any aberrant drug related behaviors since last visit? No Rationale for continuing opioid treatment: Improved comfort and function based on an ongoing functional assessment Benefits of Opioid Therapy outweigh risks: Yes Prescribed Morphine Equivalent Daily Dose (MEDD): Yes > 50 MEDD Yes, I am certified in Hospice and Palliative Care, Hematology, Medical Oncology or Pain Medicine OARRS Checked: PDMP website checked and validated. All prescriptions have been APPROPRIATELY filled. No suspicious activity was identified. 06/13/2023 by Maryjo Fish NP, STATION MECHANIC HELPER.RN DERMATOLOGY Assessment & Plan (Z51.5) Palliative care by specialist (primary encounter diagnosis) - Reviewed philosophy of palliative medicine - Discussed services offered by [facility] - Provided support -Discussed services offered by palliative medicine and how to contact us (R24.92) 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) (G89.3) Cancer associated pain - Continue Gabapentin 300 mg po tid, routine med not prn - Oxycodone 5 mg po 1-2 tabs po every 46 hours prn pain (E46) Protein-calorie malnutrition, unspecified severity (HCC) (R63.0) Anorexia (R11.0) Nausea - Continue Zofran prn every 8 hours - Continue olanzapine 5 mg p.o. at bedtime -Small frequent meals maximizing protein and calories consider nutritional shakes - (F41.9) Anxiety (F51.04) Insomnia (R11.0) Nausea -Discussed we will continue Xanax for to use as needed for severe anxiety attacks, but but gold standard of treatment is a multimodal approach -Discussed danger of using Xanax and alcohol together, increases the risk of respiratory depression which can lead to or permanent disability - Continue olanzapine 5 mg p.o. at bedtime - Continue sertraline 25 mg p.o. at bedtime -Continue alprazolam 0.25 mg p.o. every 8 hours as needed severe anxiety - Offered emotional support through onco psych Some elements copied from my note on 05/16/23, the elements have been updated and all reflect current decision making from today, 06/13/2023. Existence of Advance Directives: No - not interested Next Visit: 6-8 Weeks in person Maryjo Fish NP, OZZIE.RN DERMATOLOGY June 13, 2023 7:43 AM I spent a total of 35 minutes on the date of the service which included preparing to see the patient, [id number] patient care, completing clinical documentation, obtaining and/or reviewing separately obtained history, performing a medically appropriate examination, counseling and educating the patient/family/caregiver, ordering medications, tests, or procedures, communicating with other HCPs (not separately reported), and independently interpreting results (not separately reported). This note may have been partially generated using the [employer] voice recognition system. While every effort was made to correct voice recognition errors, kindly be aware that some errors may occasionally occur. documented in this encounter [facility] 06-13-2023 Note [facility] 06-10-2023 History of Present illness Narrative PEDRO GU [id number] 06/10/2023 [facility] Radiation Oncology Department SIMULATION NOTE DATE OF SIMULATION: 06/10/2023 THERAPIST: Sapna Severino MACHINE: [employer] DIAGNOSIS: C10 Malignant neoplasm of oropharynx AREA: HEAD& NECK CONTRAST: IV 100cc omni via the rt ac Consent in Epic: Yes PATIENT POSITION: Supine. FIXATION DEVICE: In order to achieve accurate and reproducible treatments, the patient is immobilized with orfit AIO, 5 point custom mask, custom bit block A time-out was conducted and recorded by the therapist. CT scan was completed for target localization and planning. Field arrangement will be determined after plan has been completed. The patient is scheduled for a verification simulation on the treatment machine to ensure proper set-up and field arrangement is correct prior to the first treatment of primary and boost hall if applicable. Patient education will be completed per nursing. Electronically Signed Deon Limon M.D. / DAVIDT 2:50 PM documented in this encounter [facility] 06-10-2023 History of Present illness Narrative PEDRO GU [id number] 06/10/2023 [facility] Department of Radiation Oncology Treatment Planning Note For reasons stated in the consult note, Pedro Gu is a candidate for radiation therapy. Based on review and interpretation of the relevant diagnostic studies together with the exam findings, Pedro Gu was simulated on 06/10/2023 at which time the target volume and/or requisite hall were delineated, as indicated in the simulation note, to be treated according to the prescription. After reviewing the treatment plan with dosimetry, the plan was approved to deliver the prescribed course of radiation to the target area to allow for the best isodose distribution, treating to the 95.7% isodose line with 6MV and 2 hall. Custom MLC wedges asym jaws for IMRT were the treatment devices used to shape/modify the beams. IMRT planning was used because it best met the dose/volume constraints for the organs at risk for this patient, better than what could be achieved using conventional or 3D planning. The specific dose requirements for the PTV, organs at risk and dose-volume histograms are contained in this treatment plan and/or elsewhere in the medical record. A completed summary of this plan dated 06/17/2023 incorporated herein by reference includes dose, beam arrangements, energy, blocking, isodose distribution, and/or ports and DVH. Electronically Signed Deon Limon M.D. 1:41 AM documented in this encounter [facility] 06-10-2023 Note [facility] 06-10-2023 Note [facility] 06-03-2023 Miscellaneous Notes Opened for refill, refills not needed at this time. Pavithra Jacinto MA documented in this encounter [facility] 06-02-2023 Note [facility] 06-02-2023 History of Present illness Narrative PATIENT NAME: Pedro Gu DATE: 06/02/2023 PRIMARY CARE PHYSICIAN: Dr. Christina Azul OTHER PHYSICIANS: Dr. Verito Whelan, Dr. Marianne Fields, Dr. Limon Portions of this encounter note have been copied from the note from 05/13/2023 and has been updated where appropriate, and reflect my current medical decision making from today. CC: This is a 68 year old male with metastatic lung cancer, seen for scheduled follow-up and continued treatment. INTERIM HISTORY: Pedro Gu returns for scheduled follow-up. He started the Lumakras on 05/16/2023. The pain he was having to his left upper chest wall radiating to his left shoulder and down his left arm has significantly improved since starting the Lumakras. He is tolerating the Lumakras well and denies any significant side effects. His hemoptysis has resolved. His chronic shortness of breath is unchanged. He denies nausea, vomiting and diarrhea. He denies any significant fatigue. No new muscle pain. He saw Dr. Limon to discuss radiation to the right tonsil lesion. He is scheduled for SIM on 06/10/2023. The tonsil lesion does cause him to have some difficulty eating and swallowing. His weight remains stable. MEDICATIONS: Current Outpatient Medications Medication Sig gabapentin (NEURONTIN) 100 mg capsule Take 1 capsule by mouth three times a day for 3 days, THEN 2 capsules three times a day for 3 days, THEN 3 capsules three times a day for 24 days. OLANZapine (ZYPREXA) 5 mg tablet Take 1 tablet by mouth daily at bedtime. gabapentin (NEURONTIN) 300 mg capsule Take 1 capsule by mouth three times a day for 120 days. levothyroxine (SYNTHROID) 75 mcg tablet Take 1 tablet by mouth once daily. sotorasib (LUMAKRAS) 320 mg tablet Take 3 tablets by mouth once daily. oxyCODONE-acetaminophen (PERCOCET) 5-325 mg tablet Take 1 to 2 tablets by mouth every 4 hours as needed for pain. diphenhydrAMINE 12.5 mg/5 mL lidocaine visc 2% MAALOX 200-200-20 mg/5 mL nystatin prednisoLONE 15 mg/5 mL oral liquid 1:1:1:1:1 (CPD) Swish and Swallow 5 mL by mouth every 6 hours as needed. ketoconazole (NIZORAL) 2 % cream mix with mometasone and APPLY TO THE AFFECTED AREA(S) TWICE DAILY for 30 days mometasone (ELOCON) 0.1 % cream APPLY TO THE AFFECTED AREA(S) TWICE DAILY up to 3 (THREE) weeks NEEDED Potassium Bicarb-Citric Acid (K-LYTE) 25 mEq disintegrating tablet Take 1 tablet by mouth once daily. ALPRAZolam (XANAX) 0.25 mg tablet Take 0.25 mg by mouth three times a day as needed. ondansetron (ZOFRAN) 8 mg tablet Take 1 tablet by mouth every 8 hours as needed for nausea/vomiting. metoprolol tartrate, short acting, (LOPRESSOR) 25 mg tablet Take 50 mg by mouth twice daily. isosorbide mononitrate ER (IMDUR) 30 mg 24 hr tablet Take 30 mg by mouth once daily. cilostazol (PLETAL) 100 mg tablet Take 1 tablet by mouth twice daily. clopidogrel (PLAVIX) 75 mg tablet Take 1 tablet by mouth once daily. aspirin 81 mg chewable tablet Take 81 mg by mouth once daily. atorvastatin (LIPITOR) 40 mg tablet Take 40 mg by mouth once daily. No current facility-administered medications for this visit. ALLERGIES: ALLERGIES No Known Allergies PAST MEDICAL HISTORY: PAST MEDICAL HISTORY Diagnosis Date Carotid artery disease (HCC) bilateral COPD (chronic obstructive pulmonary disease) (HCC) Heart attack (HCC) History of non-ST elevation myocardial infarction (NSTEMI) HTN (hypertension) Hypertension 09/25/2021 Lung cancer (HCC) Malignant neoplasm of lower lobe of left lung (HCC) Peripheral arterial disease (HCC) 2019 R REGISTRATION COORDINATOR stent PAST SURGICAL HISTORY: PAST SURGICAL HISTORY Procedure Laterality Date BACK SURGERY HX 2019 CABG (4) VEIN GRAFTS & ARTERIAL GRAFT(S) 2016 LOWER EXTREMITY FUNNEL SETTER W/WO STENT Right 2019 right common femoral artery stent REMOVAL OF LUNG,LOBECTOMY Left 09/26/2021 VATS left upper lung wedge resection, completion lobectomy, lymph node dissection, application of Progel to staple line, intercostal nerve blocks for cancer FAMILY HISTORY: FAMILY HISTORY Problem Relation Age of Onset Lung Cancer Father Heart Attack Father Coronary Artery Disease Father SOCIAL HISTORY: Social History Tobacco Use Smoking status: Former Packs/day: 2.00 Years: 50.00 Additional pack years: 0.00 Total pack years: 100.00 Types: Cigarettes Start date: 1970 Passive exposure: Past Smokeless tobacco: Never Tobacco comments: was smoking on and off fully quit 09/14/21 Vaping Use Vaping Use: Never used Substance Use Topics Alcohol use: Yes Alcohol/week: 30.0 standard drinks of alcohol Types: 30 Cans of Beer (12oz) per week Comment: 4-9 beers per day Drug use: Never REVIEW OF SYSTEMS: General: No weight loss, malaise or fevers. HEENT: Negative for frequent or significant headaches. No changes in hearing or vision, no nose bleeds or other nasal problems. Respiratory: Negative for wheezing. Chronic shortness of breath. See HPI. Cardiovascular: Negative for chest pain, leg swelling or palpitations. GI: Negative for abdominal discomfort, blood in stools or black stools or change in bowel habits. : No history of dysuria, frequency or incontinence. Musculoskeletal: Negative for joint pain or swelling and muscle pain. Skin: Negative for rash, lesions and itching. Hematology/Lymphology: Negative for prolonged bleeding, bruising easily or swollen nodes. Neuro: No history of headaches, syncope, paralysis, seizures or tremors. PHYSICAL EXAM: BP 160/101 Pulse 98 Temp 36.4 C (97.6 F) (Temporal) Resp 16 Ht 168.3 cm (5' 6.26 ) Wt 63.8 kg (140 lb 9.6 oz) SpO2 97% BMI 22.52 kg/m ECOG 0 Exam limited to gross visualization where appropriate due to COVID-19. Gen.: This is an age-appropriate patient in no acute distress. Head: Appears atraumatic with no visible lesions. Eyes: Pupils equally round and reactive to light, extraocular muscles are intact. Neck: Supple. Mouth: Masked. Respiratory: Appears to be respiring comfortably. Neurologic: Nonfocal to gross visualization. Alert and oriented 3. Psychiatric: No evidence of inappropriate anxiety or depression. Skin: Visible areas of skin without lesions, wounds or petechiae. Positive rash- mainly involving face and upper back. 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 - Visceral pleural invasion present. - Tumor invades into parietal pleural/chest wall adipose tissue. - Arterial invasion present. - Five hilar/peribronchial lymph nodes, negative for tumor (0/5). - Emphysema with patchy smoking-related interstitial fibrosis. - Margins negative. Molecular markers: RET rearrangement negative, ROS1 negative, BRAF negative, EGFR negative, HER-2 negative, KRAS G12C positive, ALK 1 negative, PD-L1 95% LABS: Hemoglobin (g/dL) Date Value 06/02/2023 12.9 07/03/2021 14.2 Hematocrit (%) Date Value 06/02/2023 37.5 07/03/2021 41.8 WBC (k/uL) Date Value 06/02/2023 5.40 07/03/2021 5.83 Platelet Count (k/uL) Date Value 06/02/2023 205 07/03/2021 265 RADIOLOGY/OTHER STUDIES: 05/12/2023 PET scan IMPRESSION: 1. NECK: * Increased size and hypermetabolism of right tonsillar mass, concerning for neoplasm. * New diffuse thyroid hypermetabolism, related to thyroiditis and possibly a side effect of the immune checkpoint inhibitor. 2. CHEST: * Increased size and hypermetabolism of left subpectoral node/mass. * Increased size, number, and hypermetabolism of bilateral metastatic pulmonary nodules.. 3. ABDOMEN/PELVIS: * No FDG avid neoplastic process. . 4. EXTREMITIES/SKELETON: * No suspicious FDG avid osseous lesion. 04/01/2023 chest x-ray IMPRESSION: 1. Postoperative changes involving the left perihilar/upper lung zone, as above. 2. 2.4 cm nodular opacity within the right lower lobe, appearing to have progressed in size when correlated to the prior PET/CT examination of 01/17/2023. 01/17/2023 PET scan IMPRESSION: 1. Neck: Persistent hypermetabolic focus in the right tonsillar region. 2. Chest: Interval decrease with decreased FDG activity associated with the left subpectoral region soft tissue mass. Mild residual uptake. Multiple persistent hypermetabolic bilateral lung nodules suspicious for metastases. 3. Abdomen and pelvis: No evidence of FDG avid neoplastic process 4. Skeleton: No hypermetabolic osseous lesions 01/03/2023 Chest CTA ([facility]) Bilateral hilar soft tissue nodules concerning for malignant lymph nodes. Developing nodularity of the right lung with the largest measuring up to 14 mm. 10/10/2022 PET scan IMPRESSION: 1. Neck: hypermetabolic focus in the right tonsillar/parapharyngeal region, similar to prior. 2. Chest: Hypermetabolic left subpectoral region mass. Hypermetabolic bilateral lung nodules. Findings concerning for progression of neoplastic process. 3. Abdomen and pelvis: No evidence of FDG avid neoplastic process 4. Skeleton: No hypermetabolic osseous lesions 09/17/2022 CT chest IMPRESSION: 1. Multiple new and enlarging bilateral pulmonary nodules, highly suspicious for progression of disease. 2. No evidence of new bulky intrathoracic lymphadenopathy. 09/17/2022 CT abdomen/pelvis IMPRESSION: 1. No evidence of abdominal or pelvic metastatic disease. 2. Findings compatible with a subcapsular hematoma within the spleen. 3. No evidence of abdominal or pelvic lymphadenopathy. 06/14/2022 CT Chest IMPRESSION: 1. Several indeterminate subcentimeter nodular opacities measuring up to 7 mm, new since 09/25/21. Consider interval follow-up. 2. Other noncalcified subcentimeter nodular opacities measuring less than 5 mm, stable. 3. New trace loculated left pleural effusion, most likely related to postoperative change. 06/11/2022 Chest xray IMPRESSION: A small loculated left pleural effusion is felt to have progressed in size from the prior study, as above. 04/12/2022 Bone scan ([facility]) Degenerative findings. No evidence of metastatic disease. 05/23/2022 MRI Lumbar Spine Impression: Heterogeneous appearance of the vertebral bodies stable from the prior exam, nonspecific. No enhancing mass. Mild to moderate discogenic changes L2-S1 grossly stable. For minimal stenosis at several levels as detailed. 10/31/2021 Brain MRI IMPRESSION: No evidence of an acute intracranial process. No intracranial enhancing lesion to suggest metastasis. 09/25/2021 CT chest IMPRESSION: Increased peripheral left upper lobe mass with adjacent curvilinear scarlike opacity concerning for neoplasm. No other acute thoracic disease. ASSESSMENT/PLAN: 1. 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 Status post left upper lobectomy and mediastinal lymphadenectomy 09/26/2021. The primary tumor involved the visceral and parietal pleura with evidence of invasion into the chest wall adipose tissue. Surgical margins negative. Postop it was recommended the patient receive adjuvant chemotherapy with cisplatin plus pemetrexed x4 cycles. He received his first cycle on 10/26/2021, and it was complicated by renal dysfunction. Subsequently the patient's treatment was changed to carboplatin plus pemetrexed. He completed his fourth cycle on 01/22/2022. After completing chemotherapy the patient received adjuvant radiation therapy to the left lung 03/26/2022 - 05/01/2022 (5400 cGy in 27 fractions). August 2022 the patient developed increasing cough and shortness of breath. CT scans 09/17/2022 revealed multiple bilateral pulmonary nodules, suspicious for metastases. PET scan 10/10/2022 revealed a hypermetabolic mass in the left subpectoral region plus bilateral pulmonary nodules consistent with metastatic disease. Biopsy was recommended but the patient declined. Subsequently it was elected to start systemic therapy with pembrolizumab, with plans to give 200 mg IV every 3 weeks. Pembrolizumab cycle 1 was given 10/21/2022. Palliative radiation therapy to the left upper chest wall given 10/28/2022 - 11/12/2022. The patient was seen on 11/11/2022 for pembrolizumab cycle 2, but treatment postponed due to elevated LFTs. Pembrolizumab resumed 12/06/2022 and continued every 3 weeks since. Restaging PET scan 01/17/2023 revealed significant improvement in the left chest wall mass, but persistent disease in the lungs bilaterally. Single agent pembrolizumab continued. When seen 04/22/2023 the patient complained of increasing pain over his left upper chest wall. Repeat PET scan 05/12/2023 revealed increased size and hypermetabolism of the right tonsillar mass, increased size and hypermetabolism of the left subpectoral mass, and increased size and number of bilateral lung metastases. Options for management were discussed at length with the patient and his . Due to progressive disease we will discontinue pembrolizumab. His primary tumor and recent NGS analysis was positive for K-huong G12C mutation. For this reason we elected to change treatment to targeted therapy with Lumakras. He started the Lumakras on 05/16/2023. The patient will continue Lumakras. He will follow-up with Dr. Limon for SIM and to begin radiation under the direction of Dr. Limon. We will plan to see the patient back in 4 weeks for follow-up and labs. If the patient does not tolerate or respond to limit grass we will consider third line treatment with carboplatin/Abraxane +/- immunotherapy. 2. Centrilobular emphysema (HCC) - ICD9: 492.8, ICD10: J43.2 Long history of tobacco abuse, quit September 2021. 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 3. Coronary artery disease Status post AMI 2015. Status post CABG x 4 in [place] 2016. Currently stable. Continue management per PCP/cardiology. 4. Peripheral vascular disease Status post balloon angioplasty right lower leg 2019. On long-term antiplatelet agents with Plavix and Pletal. Continue management per PCP/vascular surgery. 5. Abnormal right tonsil on PET scan (05/28/2021) and neck CT (07/11/2021). Radiographic abnormalities identified on baseline PET scan and neck CT. The patient was seen by [facility] on 07/26/2021, and clinical evaluation most consistent with inflammatory/post-infectious findings. No suspicion for malignancy. The patient apparently chewed tobacco, and was advised to discontinue. Follow-up PET scan 05/12/2023 revealed significant increased size and metabolism of the right tonsillar mass. We will refer to [facility] for evaluation, most likely to include a biopsy to rule out tonsillar cancer. 6. Cancer related pain Severe pain left upper chest wall August 2022, temporarily required Percocet. Pain initially resolved with radiation. February 2023 the patient has had recurrent pain, and currently uses Percocet as needed. 7. Abnormal LFTs Labs from 11/11/2022 revealed significant elevation of the SGOT and SGPT, most likely transaminitis secondary to OTC supplements (fenbendazole +/- curcumin). After discontinuing these supplements the patient's LFTs normalized, but unfortunately he resumed taking them again on 12/06/2022 and his LFTs worsened. The patient discontinued the medications and his LFTs have remained normal since. He was again strictly told to permanently discontinue the supplements or he will not be able to receive standard treatment. 8. Anxiety - ICD9: 300.00, ICD10: F41.9 Continue Xanax as needed for anxiety. 9. Hypothyroidism due to medication - ICD9: 244.8, E980.5, ICD10: E03.2 Labs obtained 04/22/2023 revealed markedly elevated TSH consistent with immunotherapy induced hypothyroidism. Synthroid 50 mcg started 04/23/2023. Will monitor TFTs and adjust Synthroid dosage accordingly. Brent Miller APRN.RONAL I spent a total of 30 minutes on the date of the service which included preparing to see the patient, [id number] patient care, completing clinical documentation, obtaining and/or reviewing separately obtained history, performing a medically appropriate examination, counseling and educating the patient/family/caregiver, ordering medications, tests, or procedures, independently interpreting results (not separately reported), and communicating results to the patient/family/caregiver. documented in this encounter [facility] 05-30-2023 Note [facility] 05-30-2023 History of Present illness Narrative Radiation Oncology - Follow Up Note PATIENT NAME: Pedro Gu PATIENT DIAGNOSIS: Lung cancer, left upper lobe, pleomorphic carcinoma, stage IIb [id number], stage IIB AJCC 8th edition (chest wall invasion), PD-L1 95%, KRAS G12C mutation present RADIATION SUMMARY: Course 1: DATES OF TREATMENT: 03/26/2022- 05/01/2022 AREA TREATED: left lung DELIVERED DOSE: Area: left lung 5400 cGy in 27 fractions, 2 Arcs, IMRT (VMAT), 6MV/ with daily CBCT TOTAL: 5400 cGy in 27 fractions ELAPSED TIME: 36 days. Course 2: INTERVAL HISTORY: Patient returns for discussion of progression of right tonsil lesion. He has had increased symptoms related to this including tenderness and soreness in swallowing. He is still eating fairly normally. He does relate since starting Lumakras his symptoms have improved over the last week. He was seen by Dr. Tse and underwent outpatient endoscopy demonstrating a large right tonsillar mass. No other masses or lesions. Base of tongue vallecula epiglottis without findings. Vocal cord motion normal. Due to being on Plavix biopsy was not done. Patient has had prior uptake within the right tonsil on previous PET scan. Most recent PET scan as noted below showing progression as well as progression within metastasis within the lung. He underwent NGS analysis which was positive for K-huong G12C mutation. He has been on pembrolizumab for his metastatic lung cancer, however due to progression this was discontinued recently. He was placed on Lumakras, last week PET/CT 05/12/2023: 1. NECK: * Increased size and hypermetabolism of right tonsillar mass, concerning for neoplasm. * New diffuse thyroid hypermetabolism, related to thyroiditis and possibly a side effect of the immune checkpoint inhibitor. 2. CHEST: * Increased size and hypermetabolism of left subpectoral node/mass. * Increased size, number, and hypermetabolism of bilateral metastatic pulmonary nodules.. 3. ABDOMEN/PELVIS: * No FDG avid neoplastic process. . 4. EXTREMITIES/SKELETON: * No suspicious FDG avid osseous lesion. PET/CT 01/17/2023: 1. Neck: Persistent hypermetabolic focus in the right tonsillar region. 2. Chest: Interval decrease with decreased FDG activity associated with the left subpectoral region soft tissue mass. Mild residual uptake. Multiple persistent hypermetabolic bilateral lung nodules suspicious for metastases. 3. Abdomen and pelvis: No evidence of FDG avid neoplastic process 4. Skeleton: No hypermetabolic osseous lesions ALLERGIES No Known Allergies MEDICATIONS: gabapentin (NEURONTIN) 300 mg capsule Take 1 capsule by mouth three times a day for 120 days. levothyroxine (SYNTHROID) 75 mcg tablet Take 1 tablet by mouth once daily. sotorasib (LUMAKRAS) 320 mg tablet Take 3 tablets by mouth once daily. oxyCODONE-acetaminophen (PERCOCET) 5-325 mg tablet Take 1 to 2 tablets by mouth every 4 hours as needed for pain. ketoconazole (NIZORAL) 2 % cream mix with mometasone and APPLY TO THE AFFECTED AREA(S) TWICE DAILY for 30 days mometasone (ELOCON) 0.1 % cream APPLY TO THE AFFECTED AREA(S) TWICE DAILY up to 3 (THREE) weeks NEEDED Potassium Bicarb-Citric Acid (K-LYTE) 25 mEq disintegrating tablet Take 1 tablet by mouth once daily. ALPRAZolam (XANAX) 0.25 mg tablet Take 0.25 mg by mouth three times a day as needed. metoprolol tartrate, short acting, (LOPRESSOR) 25 mg tablet Take 50 mg by mouth twice daily. isosorbide mononitrate ER (IMDUR) 30 mg 24 hr tablet Take 30 mg by mouth once daily. cilostazol (PLETAL) 100 mg tablet Take 1 tablet by mouth twice daily. clopidogrel (PLAVIX) 75 mg tablet Take 1 tablet by mouth once daily. aspirin 81 mg chewable tablet Take 81 mg by mouth once daily. atorvastatin (LIPITOR) 40 mg tablet Take 40 mg by mouth once daily. gabapentin (NEURONTIN) 100 mg capsule Take 1 capsule by mouth three times a day for 3 days, THEN 2 capsules three times a day for 3 days, THEN 3 capsules three times a day for 24 days. (Patient not taking: Reported on 05/30/2023) OLANZapine (ZYPREXA) 5 mg tablet Take 1 tablet by mouth daily at bedtime. (Patient not taking: Reported on 05/27/2023) diphenhydrAMINE 12.5 mg/5 mL lidocaine visc 2% MAALOX 200-200-20 mg/5 mL nystatin prednisoLONE 15 mg/5 mL oral liquid 1:1:1:1:1 (CPD) Swish and Swallow 5 mL by mouth every 6 hours as needed. (Patient not taking: Reported on 05/27/2023) ondansetron (ZOFRAN) 8 mg tablet Take 1 tablet by mouth every 8 hours as needed for nausea/vomiting. (Patient not taking: Reported on 05/27/2023) REVIEW OF SYSTEMS: GENERAL: SEE HPI. HEENT: Sore throat and dysphagia as noted above NECK: Negative for masses in the neck. RESPIRATORY: See HPI CARDIAC: Negative for chest pain, palpitations, murmurs, or syncopal episodes. GI: Negative for nausea, vomiting, diarrhea, constipation, blood per rectum, or melena. : Negative for dysuria, hematuria, urgency, frequency or incontinence. MUSCULOSKELETAL: Some persistent left shoulder pain much improved compared to 6 months ago. NEURO: Negative for dizziness, headache, weakness or numbness. HEMATOLOGIC: Negative for bleeding or easy bruising. SKIN: Negative for rashes or other skin changes. PHYSICAL EXAM: 05/30/23 1111 BP: 172/114 Pulse: 70 Resp: 16 Temp: 36.3 C (97.3 F) SpO2: 100% Weight: 64.3 kg (141 lb 12.8 oz) KPS: 100 General Appearance: Alert and oriented. No acute distress. Oral cavity and oropharynx: Approximately 2 to 3 cm erythematous nodular lesion right tonsil. Bimanual exam without findings base of tongue. No other lesions seen. Neck: No adenopathy appreciable ASSESSMENT/PLAN: 1. Lung cancer, left upper lobe, pleomorphic carcinoma, stage IIb [id number], stage IIB AJCC 8th edition (chest wall invasion), PD-L1 95%, KRAS G12C mutation present Patient has metastatic disease with recent progression on immunotherapy with Lumakras. 2. 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 Given concerns for biopsy and other lying metastatic lung cancer clinical diagnosis only. I do feel palliative treatment to the area that is warranted. We will plan a hypofractionated course of treatment limited to the tonsillar area. Overall tolerance should be good. Expectation of response time. Interestingly patient has had some improvement since starting Lumakras, and a second option would be to hold treatment if he would continue to have a significant clinical response to the new systemic therapy. We will plan to have him back for simulation in 2 to 3 weeks. We will discuss further with Dr. Grigsby. Have discussed with Dr. Tse. Signed by: Jyoti Limon MD cc: Christina Brothers Jorge [address] [place] [address] documented in this encounter [facility] 05-27-2023 Note [facility] 05-27-2023 History of Present illness Narrative Head and Neck Surgery Follow-up Note Patient: Pedro Gu Age: [age] year old Provider: Yo Tse MD Date of visit: 05/27/2023 Last Clinic Visit: 07/26/2021 Chief Complaint: Patient presents with: Follow Up: Pet scan results History of Present Illness: Pedro Gu is a 68 year old male with metastatic lung cancer (on systemic therapy), COPD, CAD, and ETOH abuse that presents for right tonsillar lesions. First noticed this a few months ago but was prescribed some antibiotics, which resolved the issue. It recurred approximately 2-3 weeks ago. This recurrence has not benefited from antibiotics. Patient has been using mouthwash which has helped in resolving this issue. Endorses that the area is tender, hurts during swallowing; improving since started gargling. Patient is tolerating a full diet by mouth, maintaining their weight, and energy level is stable. He denies any history of dysphagia, dysphonia, throat pain, otalgia, cough, hemoptysis, epistaxis, dysarthria, trismus, dyspnea, fever, chills, night sweats, or unintentional weight loss. We have reviewed the patient's past medical history, past surgical history, medications, allergies, social history, and review of systems with the patient. Any significant changes are noted above in the HPI . Current Medication: Current Outpatient Medications Medication Sig Dispense Refill levothyroxine (SYNTHROID) 75 mcg tablet Take 1 tablet by mouth once daily. 30 tablet 1 sotorasib (LUMAKRAS) 320 mg tablet Take 3 tablets by mouth once daily. 90 tablet 3 ketoconazole (NIZORAL) 2 % cream mix with mometasone and APPLY TO THE AFFECTED AREA(S) TWICE DAILY for 30 days mometasone (ELOCON) 0.1 % cream APPLY TO THE AFFECTED AREA(S) TWICE DAILY up to 3 (THREE) weeks NEEDED metoprolol tartrate, short acting, (LOPRESSOR) 25 mg tablet Take 50 mg by mouth twice daily. isosorbide mononitrate ER (IMDUR) 30 mg 24 hr tablet Take 30 mg by mouth once daily. cilostazol (PLETAL) 100 mg tablet Take 1 tablet by mouth twice daily. clopidogrel (PLAVIX) 75 mg tablet Take 1 tablet by mouth once daily. aspirin 81 mg chewable tablet Take 81 mg by mouth once daily. atorvastatin (LIPITOR) 40 mg tablet Take 40 mg by mouth once daily. gabapentin (NEURONTIN) 100 mg capsule Take 1 capsule by mouth three times a day for 3 days, THEN 2 capsules three times a day for 3 days, THEN 3 capsules three times a day for 24 days. (Patient not taking: Reported on 05/27/2023) 243 capsule 0 OLANZapine (ZYPREXA) 5 mg tablet Take 1 tablet by mouth daily at bedtime. (Patient not taking: Reported on 05/27/2023) 30 tablet 0 gabapentin (NEURONTIN) 300 mg capsule Take 1 capsule by mouth three times a day for 120 days. (Patient not taking: Reported on 05/27/2023) 90 capsule 3 oxyCODONE-acetaminophen (PERCOCET) 5-325 mg tablet Take 1 to 2 tablets by mouth every 4 hours as needed for pain. (Patient not taking: Reported on 05/27/2023) 50 tablet 0 diphenhydrAMINE 12.5 mg/5 mL lidocaine visc 2% MAALOX 200-200-20 mg/5 mL nystatin prednisoLONE 15 mg/5 mL oral liquid 1:1:1:1:1 (CPD) Swish and Swallow 5 mL by mouth every 6 hours as needed. (Patient not taking: Reported on 05/27/2023) 300 mL 1 Potassium Bicarb-Citric Acid (K-LYTE) 25 mEq disintegrating tablet Take 1 tablet by mouth once daily. (Patient not taking: Reported on 05/27/2023) 30 tablet 1 ALPRAZolam (XANAX) 0.25 mg tablet Take 0.25 mg by mouth three times daily as needed. (Patient not taking: Reported on 05/27/2023) ondansetron (ZOFRAN) 8 mg tablet Take 1 tablet by mouth every 8 hours as needed for nausea/vomiting. (Patient not taking: Reported on 05/27/2023) 90 tablet 1 No current facility-administered medications for this visit. Review of Systems - A focused ROS was performed, which is noted in the HPI above. Physical Exam: Vitals - There were no vitals taken for this visit. Constitutional - General Appearance: Normocephalic and atraumatic. Well developed, well nourished. Communication: Speaks with a normal voice without hoarseness. Head & Face - Overall: No obvious scars, lesions or masses. Parotid and submandibular glands: No masses bilaterally and without any asymmetry. Facial strength: Normal and equal bilaterally. Eyes - Pupils are round and reactive. Extraocular muscles grossly intact. Sclerae and conjunctivae noninjected and anicteric. Ear, Nose, Mouth & Throat - Ears: No external deformities. Nasal exam: No external deformities. Mastication: Dentition appears edentulous. There is no significant trismus. Oral Cavity: No mucosal lesions. Tongue is soft, midline, and mobile bilaterally. Floor of mouth is soft. Palate is intact and elevates symmetrically. Oropharynx: R tonsil mass, 3cm -> ulcerated, firm, has significantly grown compared to prior Neck: No masses or lymphadenopathy palpated. Trachea is midline and mobile. Thyroid: Soft and nontender. No asymmetry, thyromegaly, or thyroid nodules on palpation. Skin - No edema, no discoloration, no ulceration, no masses or lesions. Respiratory - Normal work of breathing on room air. No stridor or abnormal breath sounds. Neurologic - General: Alert and oriented x 3. No obvious focal deficits. Cranial Nerves: II: Pupillary reflexes normal III, IV, : EOM normal V: 1,2,3: normal sensation VII: Normal strength in all divisions IX, X: Normal voice, palatal elevation and sensation XI: Shoulder strength normal XII: Tongue mobility normal Procedure: Procedure: Flexible Laryngoscopy Pre-procedure diagnosis: Tonsillar mass Post-procedure diagnosis: same Indications: Evaluation of the larynx and immediate subglottis - unable to be visualized by mirror examination Anesthesia: Lidocaine and Phenylephrine Procedure: Topical anesthesia and vasoconstriction was applied with spray to both sides of the nose. After waiting an appropriate period of time for anesthesia/vasoconstriction to become effective, a flexible laryngoscope was passed through the L nasal passage. Findings: The nasal cavity and nasopharynx were normal. Enlarged R tonsillar mass visible. No other masses or lesions were visualized at the base of tongue, vallecula, epiglottis, aryepiglottic folds, pyriform sinuses, and lateral pharyngeal nolasco. True vocal cord movement was intact bilaterally. The patient's airway was widely patent. ----- TPA ------ I was physically present during the entire procedure including insertion and removal of scope SIGNATURE: Yo Tse MD DATE of SERVICE: May 27, 2023 TIME of SERVICE: 1:41 PM Review of Pathology and Radiologic Records and Images: Previous operative, pathology, and radiological reports and/or images were reviewed and filed in the permanent chart. This is notable for: PET 05/12/23 1. NECK: * Increased size and hypermetabolism of right tonsillar mass, concerning for neoplasm. * New diffuse thyroid hypermetabolism, related to thyroiditis and possibly a side effect of the immune checkpoint inhibitor. 2. CHEST: * Increased size and hypermetabolism of left subpectoral node/mass. * Increased size, number, and hypermetabolism of bilateral metastatic pulmonary nodules.. 3. ABDOMEN/PELVIS: * No FDG avid neoplastic process. . 4. EXTREMITIES/SKELETON: * No suspicious FDG avid osseous lesion. PET 01/17/2023 IMPRESSION: 1. Neck: Persistent hypermetabolic focus in the right tonsillar region. 2. Chest: Interval decrease with decreased FDG activity associated with the left subpectoral region soft tissue mass. Mild residual uptake. Multiple persistent hypermetabolic bilateral lung nodules suspicious for metastases. 3. Abdomen and pelvis: No evidence of FDG avid neoplastic process 4. Skeleton: No hypermetabolic osseous lesions Labs: None Assessment: ACTIVE PROBLEM LIST Coronary Artery Disease Involving [place] Coronary Artery of [place] Heart Without Angina Pectoris Centrilobular Emphysema (Hcc) Primary Hypertension Bilateral Carotid Artery Stenosis Malignant Neoplasm of Upper Lobe of Left Lung (Hcc) Postoperative Pain Alcohol Consumption of More Than Four Drinks Per Day Discharge Planning Issues Pad (Peripheral Artery Disease) (Hcc) Nicotine use disorder, F17.2 Protein-Calorie Malnutrition, Unspecified Severity (Hcc) Mr. Pedro Gu is a 68 year old male with history of metastatic lung cancer who returns for evaluation of tonsillar mass. On exam, very high suspicion for tonsillar cancer, mass demonstrating interval growth compared to prior scope examination. This is likely to be a second primary. Given the patient is currently undergoing palliative systemic therapy for his recurrent metastatic lung cancer (already failed multiple rounds of chemotherapy and immunotherapy, now on TKI) and the obvious malignancy on exam and imaging, discussed the option of DL biopsy in the OR vs proceeding with palliative radiation for symptom management and to keep from progressing further. Discussed the above with Dr. Dinh, rad/onc, who agreed to proceed w palliative radiation without DL bx. Also will discuss with Dr. Grigsby from med/onc, who is managing him. Plan: -Radiation oncology for palliative radiation to R tonsil Return to clinic with above orders and testing or sooner if needed. If any questions or concerns arise prior to the patient's next appointment, he has been instructed to contact the clinic. All questions were answered, and the patient is in agreement with this plan. Eb Quiroz MD for the service of Yo Tse MD TEACHING PHYSICIAN ADDENDUM: This patient was seen and examined with the resident/ fellow. The encounter diagnosis was Tonsillar mass. We discussed the diagnosis, treatment options, and plan of care. The above note reflects the entirety of evaluation and work performed by both the resident/fellow and myself. I reviewed the patient's history, repeated the physical exam, reviewed relevant imaging and laboratory values and formulated the treatment plan. I have read, reviewed, edited and now agree with the above note. I was present for the clinical encounter as documented above by the resident\fellow. Dr. Quiroz and have reviewed the note and agree with the findings. Medical Decision Making: Problems: High: Illness/injury w/ threat to life/body function Data: Unique source(s) for external note(s) reviewed: 1 Unique test result(s) reviewed: 2 Independent interpretation of test from other physician/QHCP Discussed management or test w/ external physician/QHCP/source Risk: High: High risk from testing/treatment Medical Decision Making Level: 5 - High SIGNATURE: Yo Tse MD DATE of SERVICE: May 27, 2023 TIME of SERVICE: 1:41 PM documented in this encounter [facility] 05-27-2023 Nurse Note Tobacco Use: 2 packs/day, for 50 years. Types: Cigarettes Was smoking cessation packet given? Patient Declined Was a referral initiated?Patient declined. documented in this encounter [facility] 05-20-2023 Miscellaneous Notes Patient started/will start taking Sotorasib on 05/14/23. Denita Rai RN documented in this encounter [facility] 05-20-2023 Miscellaneous Notes ORAL ANTI-CANCER AGENTS FOLLOW-UP PHONE CALL/VISIT Patient identified by name and date of . YES Patient is on cycle 1, week 1, day 7 of Sotorasib for Non-Small Cell Lung Cancer. SYMPTOM ASSESSMENT Headache: No Visual Changes: No Dizziness: No Do you have any periods of confusion? No Mood changes: No Mouth or throat pain: Yes - sore throat. Using MMW. Prescribed Augmentin earlier this week. Seeing ENT on , 05/22. Appetite: no changes in appetite, appetite good Taste changes: No Nausea: No Vomiting: No Heartburn: No. Weight gain/loss: No Episodes of palpitations/chest discomfort/pressure/pain No Shortness of breath: Yes w/ activity. No change from baseline. Cough: Yes; productive blood streaked sputum and occasional Diarrhea: no Constipation: Yes. C/o constipation last week. Resolved w/ laxatives. Bladder/Urinary Changes: None Pain: c/o generalized body pain. Notes it improved after start of the Sotorasib. Still having a small amount of pain in his left shoulder. Fever: No Chills: No Cold sensitivity: No Numbness/weakness: No Edema: No Skin changes: No Itching: No Yellowing of skin or eyes: No Musculoskeletal/joint changes/issues No Bleeding issues: No Activity Level (0-100%): Continues to walk 2 miles per day. States, I feel great! Do you need to take naps? No Pt verbalizes correct dose and frequency ( 3 tabs daily.) Does the patient need interventions or same day appointment:No ADDITIONAL FOLLOW UP: The next outreach call is due on: Advised pt to call w/ any questions or concerns and was scheduled NA The following lab tests are due: CBC, CMP, TSH, T4 due on 06/02/23. Verified patient is aware of next appointment in the cancer center: Yes. Verified patient verbalized how to correctly refill the oral agent prescription. Yes Does the patient have any financial difficulties affording this medication? No Patient verbalizes understanding of when to seek Medical Attention? YES Patient verbalizes understanding of after-hours and weekend phone number? YES Patient verbalized importance of medication compliance in taking the oral agent as prescribed. Patient instructed to call if unable to comply. Denita Rai RN documented in this encounter [facility] 05-20-2023 History of Present illness Narrative ORAL ANTI-CANCER AGENTS EDUCATION patient here today for oral medication education of Sotorasib for Non-Small Cell Lung Cancer READINESS TO LEARN Cognitive Ability: Alert and oriented Motivation to Learn: Interested Family Support: Unable to assess - Family not present Instruction Provided to: Patient Patient learns best by: Multiple Methods Factors affecting learning: None Physical limitation affecting learning: None DIAMOND ASSESSMENT: 1.) Verified that patient knows that the oral agents are for cancer and are taken by mouth. Yes - once daily w/ or w/o food. 2.) Medication review completed during visit. Yes 3.) Patient is able to swallow pills. Yes 4.) Patient is able to read the drug label/information. Yes 5.) Patient is able to open the medication bottles and packages. Yes 6.) Has patient taken other pills for cancer? No 7.) Is patient experiencing any symptoms that would affect their ability to keep down pills, for example nausea or vomiting? No 8.) Verified that patient understands prescription delivery, benefit investigation and refill process. Yes DRUG-SPECIFIC EDUCATION: 1.) Verified patient knows the drug name. Yes 2.) Verified patient understands the dose and schedule of oral anti cancer agent. Yes 3.) Verified patient knows what to do if a medication dose is missed. Yes 4.) Verified patient understands where to store the drug. Yes 5.) Verified patient understands potential side effects and how to manage them. Yes 6.)Verified patient understands handling precautions of oral anti cancer agent. Yes 7.) Verified patient was given written instructions and understands when and whom to call with questions. Yes 8.) Verified patient understands where and how to return drug. Yes 9.) Verified patient received drug specific adult education handout and neutropenic wallet card Yes [employer] education provided. Pt has neutropenic wallet card from prior therapy. EVALUATE: The patient demonstrated an understanding of all the above education using the teach-back method. Yes Instructed to call us with any questions, concerns, and/or unresolved symptoms. Will continue to follow up and provide reinforcement of teaching topics as needed. Denita Rai RN documented in this encounter [facility] 05-20-2023 Note [facility] 05-19-2023 Miscellaneous Notes Pt notified of script. Denita Rai RN The following approved medication requests have been transmitted electronically. Requested Prescriptions Signed Prescriptions Disp Refills amoxicillin-clavulanate potassium (AUGMENTIN) 875-125 mg per tablet 14 tablet 0 Sig: Take 1 tablet by mouth two times a day for 7 days. Authorizing Provider: BRENT MILLER APRN.CNP Per Dr Grigsby, Augmentin BID x 10 days. WILIAM/Brent: Script pended. Denita Rai RN Would suggest a different antibiotic with Augmentin 875 twice daily for suspected infection until seen by ENT Pt c/o severe throat pain. States that it is so sore that it is bleeding. Denies fevers. Has been rinsing and swallowing MMW w/ minimal relief. Pt was prescribed a Zpack on 05/08 for similar complaints. States that it helped, but the symptoms returned a few days later. Pt has an appointment w/ the ENT on for his tonsilar mass. What do you advise until then? Denita Rai RN documented in this encounter [facility] 05-16-2023 Instructions Maryjo Fish APRN.RN DERMATOLOGY - 05/16/2023 9:13 AM EDT Maryjo Fish CNP Department of Palliative and Supportive Care Palliative Care - Specialty services in symptom management and support For questions or prescription refills, call: [phone] Friday - Friday 9AM-5PM LASHAY Evans, RN - Admitting Representative Please call 3-5 days in advance for medication refills Evenings, Weekends, Holidays: [phone] (ask for palliative medicine on-call provider) For appointments, cancellations or reschedule, call: [phone] documented in this encounter [facility] 05-16-2023 Note [facility] 05-16-2023 History of Present illness Narrative PALLIATIVE MEDICINE PROGRESS NOTE SERVICE DATE: 05/16/2023 Primary Site of Disease/Medical Illness: Lung Site of Metastasis: invasion of the visceral pleura and chest wall adipose tissue, arterial invasion present. pMX also significant for COPD, CAD, and ETOH abuse. CHIEF COMPLAINT: Pain PERTINENT MEDICAL HISTORY: Anxiety, Centrilobular emphysema, CAD, PVD Subjective Continues persistent pain over his left upper chest wall radiating to left shoulder and down left arm, minimal relief with two percocet at a time. Described as a mix of nocieptive and neuropathic pain. He would like to start Gabapentin again as he found it effective for this pain in the past. Positive constipation, he was not using a bowel regimen when he had to restart the pain medicine. He started Miralax and senokot last night. Poor appetite due to pain and nausea. Continues xanax tid for anxiety prescribed by pcp. Not usingg olanzapine or sertraline, not sure why. Modified ESAS ([place] Symptom Assessment Scale) Information Provided By: Patient Pain: Severe Nausea: Moderate Loss of Appetite: Moderate Constipation: Severe Shortness of Breath: None Drowsiness: None Tiredness: Mild Depression: None Anxiety: Moderate Objective ECOG PERFORMANCE STATUS: 1- Restricted in physically strenuous activity. Carries out light duty. PHYSICAL EXAMINATION: Vital signs: BP 150/85 Pulse 85 Temp 36.1 C (97 F) (Temporal) Resp 16 Ht 168.3 cm (5' 6.26 ) Wt 63.1 kg (139 lb 3.2 oz) SpO2 98% BMI 22.29 kg/m Last 1 Encounter Temp Readings: Date: Temp: Temp Src: 05/16/2023 36.1 C (97 F) Temporal Last 1 Encounter Resp Readings: Date: Resp: 05/16/2023 16 Last 1 Encounter Pulse Readings: Date: Pulse: 05/16/2023 85 Last 1 Encounter BP Readings: Date: BP: 05/16/2023 150/85 Physical Exam Constitutional: Appearance: He is well-groomed. HENT: Head: Normocephalic and atraumatic. Jaw: There is normal jaw occlusion. Right Ear: Hearing and external ear normal. Left Ear: Hearing and external ear normal. Nose: Nose normal. Mouth/Throat: Lips: [place]. Mouth: Mucous membranes are moist. No oral lesions. Eyes: General: Lids are normal. Gaze aligned appropriately. Extraocular Movements: Extraocular movements intact. Conjunctiva/sclera: Conjunctivae normal. Neck: Thyroid: No thyroid mass. Cardiovascular: Rate and Rhythm: Normal rate and regular rhythm. Pulses: Normal pulses. Heart sounds: Normal heart sounds. Pulmonary: Effort: Pulmonary effort is normal. Abdominal: General: Abdomen is flat. Bowel sounds are normal. Palpations: Abdomen is soft. Musculoskeletal: General: No swelling, tenderness or deformity. Normal range of motion. Right shoulder: Normal. Left shoulder: Normal. Right upper arm: Normal. Left upper arm: Normal. Cervical back: Full passive range of motion without pain. Right lower leg: No edema. Left lower leg: No edema. Skin: General: Skin is warm and dry. Capillary Refill: Capillary refill takes less than 2 seconds. Findings: No rash. Neurological: General: No focal deficit present. Mental Status: He is alert and oriented to person, place, and time. Psychiatric: Attention and Perception: Attention normal. Mood and Affect: Mood normal. Speech: Speech normal. Behavior: Behavior normal. Behavior is cooperative. Thought Content: Thought content normal. Cognition and Memory: Cognition and memory normal. Judgment: Judgment normal. DATA: Diagnostic tests reviewed for today's visit: Most recent labs and imaging results. Estimated Creatinine Clearance: 61.2 mL/min (based on SCr of 1.06 mg/dL). Opioid Management: Yes Indication for Opioid Prescribing: Cancer related pain ORT-OUD Score: 3 A score of 3 or higher may indicate a higher risk for future development of aberrant drug related behavior or opioid use disorder. Informed consent for chronic opiate therapy obtained and written pain agreement: On file Naloxone offered?: No, will discuss at follow up visit Course of treatment, patient's response and adherence to the prescribed treatment plan reviewed, including non-pharmacological and non-opioid treatment modalities? Yes Have any complications or exacerbations of the underlying condition causing the pain been reviewed? Yes How much does pain impede patient s ability to engage in work or other purposeful activities, interfere with your activities of daily living, physical activity, or quality of your family life and social activities? Significantly Aberrancies in pain panel? Pending Any aberrant drug related behaviors since last visit? No Rationale for continuing opioid treatment: Improved comfort and function based on an ongoing functional assessment Benefits of Opioid Therapy outweigh risks: Yes Prescribed Morphine Equivalent Daily Dose (MEDD): Yes > 50 MEDD Yes, I am certified in Hospice and Palliative Care, Hematology, Medical Oncology or Pain Medicine OARRS Checked: PDMP website checked and validated. All prescriptions have been APPROPRIATELY filled. No suspicious activity was identified. 05/16/2023 by Maryjo Fish NP, STATION MECHANIC HELPER.RN DERMATOLOGY Urine Screen Lab Results Component Value Date UAMPH Negative 09/26/2021 UBARB2 Negative 09/26/2021 UBENZ Negative 09/26/2021 UCOC2 Negative 09/26/2021 UOPI Negative 09/26/2021 UOXYC Negative 09/26/2021 UPCP Negative 09/26/2021 UTHC Negative 09/26/2021 UETOH <11 09/26/2021 Assessment & Plan (Z51.5) Palliative care by specialist (primary encounter diagnosis) - Reviewed philosophy of palliative medicine - Discussed services offered by [facility] - Provided support -Discussed services offered by palliative medicine and how to contact us (M65.74) 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 every 4 hours as needed (E46) Protein-calorie malnutrition, unspecified severity (HCC) (R63.0) Anorexia (R11.0) Nausea - Continue Zofran prn every 8 hours -Start olanzapine 5 mg p.o. at bedtime -Small frequent meals maximizing protein and calories consider nutritional shakes - (F41.9) Anxiety (F51.04) Insomnia (R11.0) Nausea -Discussed we will continue Xanax for to use as needed for severe anxiety attacks, but but gold standard of treatment is a multimodal approach -Discussed danger of using Xanax and alcohol together, increases the risk of respiratory depression which can lead to or permanent disability -Start olanzapine 5 mg p.o. at bedtime - Start sertraline 25 mg p.o. at bedtime -Continue alprazolam 0.25 mg p.o. every 8 hours as needed severe anxiety - Offered emotional support through onco psych Some elements copied from my note on 01/17/23, the elements have been updated and all reflect current decision making from today, 05/16/2023. I spent a total of 35 minutes on the date of the service which included preparing to see the patient, [id number] patient care, completing clinical documentation, obtaining and/or reviewing separately obtained history, performing a medically appropriate examination, counseling and educating the patient/family/caregiver, ordering medications, tests, or procedures, and independently interpreting results (not separately reported). Existence of Advance Directives: No - not interested Next Visit: 4 Weeks in person Maryjo Fish NP, STATION MECHANIC HELPER.RN DERMATOLOGY May 16, 2023 8:56 AM This note may have been partially generated using the [employer] voice recognition system. While every effort was made to correct voice recognition errors, kindly be aware that some errors may occasionally occur. documented in this encounter [facility] 05-15-2023 Miscellaneous Notes Signed. rBent Miller APRN.RONAL Pt calls requesting gabapentin for his shoulder pain. Has been taking the oxycodone w/ only minimal relief. States that in the past we had prescribed him gabapentin which he took in addition to the oxycodone. Notes that that combination worked for him. Pt also c/o constipation from the oxycodone. States that he manually extracted stool from his rectum this morning. Has not taken any OTC laxatives or softeners. Went today and bought Miralax and softeners that he plans to start today. Offered pt an appointment w/ Pall Med to address his pain and constipation. Pt agrees. Will be seeing Christina tomorrow @ 830 AM. Pt aware of the appointment. WILIAM/Brent: Pall Med order pended. Christina: MARIA L.... Denita Rai, RN documented in this encounter [facility] 05-15-2023 Miscellaneous Notes The following approved medication requests have been transmitted electronically. Requested Prescriptions Signed Prescriptions Disp Refills levothyroxine (SYNTHROID) 75 mcg tablet 30 tablet 1 Sig: Take 1 tablet by mouth once daily. Authorizing Provider: BRENT MILLER APRN.CNP Signed. Brent Miller APRN.RN DERMATOLOGY Pt notified and confirms that he has been taking his levothyroxine daily as prescribed. WILIAM/Brent: New script pended. Denita Rai RN Call placed to pt. No answer. Voicemail is full. Unable to leave a message. Denita Rai RN ----- Message from Pito Grigsby MD sent at 05/14/2023 5:28 PM EDT ----- Please inform the patient that his TSH is still high at 47. Recommend we increase the Synthroid to 75 mcg. Pauline Dennis documented in this encounter [facility] 05-13-[address] Grigsby, treatment plan will be changing to Lumakras. Script sent to [facility] pharmacy. Denita Rai RN Added future plan of pembrolizumab, carboplatin, and paclitaxel for after today's dose of pembrolizumab. (Was not certain if you were going to go ahead with today's dose or not.) Jose Stacy PharmD, BCOP Whitney: MARIA L Stacy PharmD, BCOP documented in this encounter [facility] 05-13-2023 Note [facility] 05-12-2023 Note [facility] 05-12-2023 Note [facility] 05-08-2023 Miscellaneous Notes Pt notified of scripts and verbalizes understanding. Disposition: per Brent Miller NP, patient directed to: Manage at home. Provided instructions and will call back. Denita Rai RN The following approved medication requests have been transmitted electronically. Requested Prescriptions Signed Prescriptions Disp Refills diphenhydrAMINE 12.5 mg/5 mL lidocaine visc 2% MAALOX 200-200-20 mg/5 mL nystatin prednisoLONE 15 mg/5 mL oral liquid 1:1:1:1:1 (CPD) 250 mL 1 Sig: Take 5 mL by mouth every 6 hours as needed. Swish and Swallow Authorizing Provider: BRENT MILLER azithromycin (ZITHROMAX Z-DAVID) 250 mg tablet 6 tablet 0 Sig: Take two (2) tablets by mouth the first day and then one (1) tablet daily for 4 days. Authorizing Provider: BRENT MILLER APRN.RN DERMATOLOGY Pt c/o a sore throat. States that he has one white sore in the back of his throat. Denies fevers or chills. Had similar symptoms back in December. We prescribed MMW and Zpack at that time. Pt asks if you will write for both of those again. Script pended if you agree. Denita Rai RN documented in this encounter [facility] 05-05-2023 Miscellaneous Notes Next appt and labs 05/13/23. Jose Stacy, MoeD, BCOP documented in this encounter [facility] 04-23-2023 Miscellaneous Notes The following approved medication requests have been transmitted electronically. Requested Prescriptions Signed Prescriptions Disp Refills levothyroxine (SYNTHROID) 50 mcg tablet 30 tablet 0 Sig: Take 1 tablet by mouth once daily. Authorizing Provider: BRENT MILLER APRN.RN DERMATOLOGY Images from the original note were not included. 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 Please start Synthroid 50 mcg daily. We will repeat TFTs on return visit in 3 weeks. Pt notified and verbalizes understanding. WILIAM/Brent: Script pended. Denita Rai RN documented in this encounter [facility] 04-22-2023 Note [facility] 04-08-2023 Miscellaneous Notes Pt notified and verbalizes understanding. Denita Rai RN Okay to get COVID booster. Pt would like to get the latest Covid booster. Any objections? Denita Sessler, RN documented in this encounter [facility] 04-01-2023 Note [facility] 04-01-2023 History of Present illness Narrative Potassium 3.3 reviewed with Raimundo Miller CNP. She would like pt to get K 20 meq IV x1 dose today and will send a script for oral K to his pharmacy. Pt and tx nurse informed. Ania Peters RN documented in this encounter [facility] 04-01-2023 Note [facility] 04-01-2023 Nurse Note Patient states he has been coughing up a lot of stuff. Coughing up more blood then usual. documented in this encounter [facility] 04-01-2023 Note [facility] 04-01-2023 History of Present illness Narrative PATIENT NAME: Pedro Gu DATE: 04/01/2023 PRIMARY CARE PHYSICIAN: Dr. Christina Azul OTHER PHYSICIANS: Dr. Verito Whelan, Dr. Marianne Fields, Dr. Limon Portions of this encounter note have been copied from the note from 03/11/2023 and has been updated where appropriate, and reflect my current medical decision making from today. CC: This is a 68 year old male with metastatic lung cancer, seen for scheduled follow-up and continued treatment. INTERIM HISTORY: Pedro Gu returns for follow-up and continued treatment. He remains on pembrolizumab every 3 weeks and overall is tolerating it well. He completed the Z-David. He continues to have hemoptysis which was worse today. He states that he was working on his car lying on the ground over the weekend which he feels contributed to the worsening hemoptysis. He saw his PCP and was started on Flomax. He was told he is coughing up infection . He denies fevers. His PCP also gave him a steroid injection. His rash has improved. He denies nausea, vomiting, diarrhea and abdominal pain. Despite his current complaints he wishes to proceed with treatment as planned. MEDICATIONS: Current Outpatient Medications Medication Sig azithromycin (ZITHROMAX Z-DAVID) 250 mg tablet Take two (2) tablets by mouth the first day and then one (1) tablet daily for 4 days. sertraline (ZOLOFT) 25 mg tablet Take 1 tablet by mouth once daily. OLANZapine orally disintegrating (ZYPREXA ZYDIS) 5 mg disintegrating tablet Take 1 tablet by mouth daily at bedtime. oxyCODONE-acetaminophen (PERCOCET) 5-325 mg tablet Take 1-2 tablets by mouth every 4 hours as needed for pain. ondansetron (ZOFRAN) 8 mg tablet Take 1 tablet by mouth every 8 hours as needed for nausea/vomiting. ipratropium-albuterol (DUONEB) 0.5 mg-3 mg(2.5 mg base)/3 mL nebu Inhale 3 mL as instructed every 6 hours as needed for wheezing/shortness of breath. Nebulizer and Compressor For Neb 1 Each as needed. Use as directed. metoprolol tartrate, short acting, (LOPRESSOR) 25 mg tablet Take 50 mg by mouth twice daily. isosorbide mononitrate ER (IMDUR) 30 mg 24 hr tablet Take 30 mg by mouth once daily. cilostazol (PLETAL) 100 mg tablet Take 1 tablet by mouth twice daily. clopidogrel (PLAVIX) 75 mg tablet Take 1 tablet by mouth once daily. aspirin 81 mg chewable tablet Take 81 mg by mouth once daily. atorvastatin (LIPITOR) 40 mg tablet Take 40 mg by mouth once daily. No current facility-administered medications for this visit. ALLERGIES: ALLERGIES No Known Allergies PAST MEDICAL HISTORY: PAST MEDICAL HISTORY Diagnosis Date Carotid artery disease (HCC) bilateral COPD (chronic obstructive pulmonary disease) (HCC) Heart attack (HCC) History of non-ST elevation myocardial infarction (NSTEMI) HTN (hypertension) Hypertension 09/25/2021 Lung cancer (HCC) Malignant neoplasm of lower lobe of left lung (HCC) Peripheral arterial disease (HCC) 2019 R REGISTRATION COORDINATOR stent PAST SURGICAL HISTORY: PAST SURGICAL HISTORY Procedure Laterality Date BACK SURGERY HX 2019 CABG (4) VEIN GRAFTS & ARTERIAL GRAFT(S) 2016 LOWER EXTREMITY FUNNEL SETTER W/WO STENT Right 2019 right common femoral artery stent REMOVAL OF LUNG,LOBECTOMY Left 09/26/2021 VATS left upper lung wedge resection, completion lobectomy, lymph node dissection, application of Progel to staple line, intercostal nerve blocks for cancer FAMILY HISTORY: FAMILY HISTORY Problem Relation Age of Onset Lung Cancer Father Heart Attack Father Coronary Artery Disease Father SOCIAL HISTORY: Social History Tobacco Use Smoking status: Former Packs/day: 2.00 Years: 50.00 Additional pack years: 0.00 Total pack years: 100.00 Types: Cigarettes Start date: 1968 Passive exposure: Past Smokeless tobacco: Never Tobacco comments: was smoking on and off fully quit 09/14/21 Vaping Use Vaping Use: Never used Substance Use Topics Alcohol use: Yes Alcohol/week: 30.0 standard drinks of alcohol Types: 30 Cans of Beer (12oz) per week Comment: 4-9 beers per day Drug use: Never REVIEW OF SYSTEMS: General: No weight loss, malaise or fevers. HEENT: Negative for frequent or significant headaches. No changes in hearing or vision, no nose bleeds or other nasal problems. Respiratory: Negative for wheezing. Chronic shortness of breath. See HPI. Cardiovascular: Negative for chest pain, leg swelling or palpitations. GI: Negative for abdominal discomfort, blood in stools or black stools or change in bowel habits. : No history of dysuria, frequency or incontinence. Musculoskeletal: Negative for joint pain or swelling and muscle pain. Skin: Negative for rash, lesions and itching. Hematology/Lymphology: Negative for prolonged bleeding, bruising easily or swollen nodes. Neuro: No history of headaches, syncope, paralysis, seizures or tremors. PHYSICAL EXAM: BP 191/101 Pulse 105 Temp 36.6 C (97.8 F) (Temporal) Resp 18 Ht 168.3 cm (5' 6.26 ) Wt 63 kg (138 lb 12.8 oz) SpO2 98% BMI 22.23 kg/m ECOG 0 Exam limited to gross visualization where appropriate due to COVID-19. Gen.: This is an age-appropriate patient in no acute distress. Head: Appears atraumatic with no visible lesions. Eyes: Pupils equally round and reactive to light, extraocular muscles are intact. Neck: Supple. Mouth: Masked. Respiratory: Appears to be respiring comfortably. Neurologic: Nonfocal to gross visualization. Alert and oriented 3. Psychiatric: No evidence of inappropriate anxiety or depression. Skin: Visible areas of skin without lesions, wounds or petechiae. Positive rash- mainly involving face and upper back. 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 - Visceral pleural invasion present. - Tumor invades into parietal pleural/chest wall adipose tissue. - Arterial invasion present. - Five hilar/peribronchial lymph nodes, negative for tumor (0/5). - Emphysema with patchy smoking-related interstitial fibrosis. - Margins negative. Molecular markers: RET rearrangement negative, ROS1 negative, BRAF negative, EGFR negative, HER-2 negative, KRAS c34G>T positive, ALK 1 negative, PD-L1 95% LABS: Hemoglobin (g/dL) Date Value 04/01/2023 14.5 07/03/2021 14.2 Hematocrit (%) Date Value 04/01/2023 42.0 07/03/2021 41.8 WBC (k/uL) Date Value 04/01/2023 6.65 07/03/2021 5.83 Platelet Count (k/uL) Date Value 04/01/2023 171 07/03/2021 265 RADIOLOGY/OTHER STUDIES: 01/17/2023 PET scan IMPRESSION: 1. Neck: Persistent hypermetabolic focus in the right tonsillar region. 2. Chest: Interval decrease with decreased FDG activity associated with the left subpectoral region soft tissue mass. Mild residual uptake. Multiple persistent hypermetabolic bilateral lung nodules suspicious for metastases. 3. Abdomen and pelvis: No evidence of FDG avid neoplastic process 4. Skeleton: No hypermetabolic osseous lesions 01/03/2023 Chest CTA ([facility]) Bilateral hilar soft tissue nodules concerning for malignant lymph nodes. Developing nodularity of the right lung with the largest measuring up to 14 mm. 10/10/2022 PET scan IMPRESSION: 1. Neck: hypermetabolic focus in the right tonsillar/parapharyngeal region, similar to prior. 2. Chest: Hypermetabolic left subpectoral region mass. Hypermetabolic bilateral lung nodules. Findings concerning for progression of neoplastic process. 3. Abdomen and pelvis: No evidence of FDG avid neoplastic process 4. Skeleton: No hypermetabolic osseous lesions 09/17/2022 CT chest IMPRESSION: 1. Multiple new and enlarging bilateral pulmonary nodules, highly suspicious for progression of disease. 2. No evidence of new bulky intrathoracic lymphadenopathy. 09/17/2022 CT abdomen/pelvis IMPRESSION: 1. No evidence of abdominal or pelvic metastatic disease. 2. Findings compatible with a subcapsular hematoma within the spleen. 3. No evidence of abdominal or pelvic lymphadenopathy. 06/14/2022 CT Chest IMPRESSION: 1. Several indeterminate subcentimeter nodular opacities measuring up to 7 mm, new since 09/25/21. Consider interval follow-up. 2. Other noncalcified subcentimeter nodular opacities measuring less than 5 mm, stable. 3. New trace loculated left pleural effusion, most likely related to postoperative change. 06/11/2022 Chest xray IMPRESSION: A small loculated left pleural effusion is felt to have progressed in size from the prior study, as above. 04/12/2022 Bone scan ([facility]) Degenerative findings. No evidence of metastatic disease. 05/23/2022 MRI Lumbar Spine Impression: Heterogeneous appearance of the vertebral bodies stable from the prior exam, nonspecific. No enhancing mass. Mild to moderate discogenic changes L2-S1 grossly stable. For minimal stenosis at several levels as detailed. 10/31/2021 Brain MRI IMPRESSION: No evidence of an acute intracranial process. No intracranial enhancing lesion to suggest metastasis. 09/25/2021 CT chest IMPRESSION: Increased peripheral left upper lobe mass with adjacent curvilinear scarlike opacity concerning for neoplasm. No other acute thoracic disease. 07/11/2021 CT neck IMPRESSION: ASYMMETRIC HIGH DENSITY WITH ILL-DEFINED MARGINS INVOLVING THE ANTERIOR ASPECT OF THE RIGHT PALATINE TONSIL WITHOUT ASSOCIATED NODULARITY. THIS IS A NONSPECIFIC FINDING AND MAY REFLECT HYPEREMIA FROM TONSILLITIS. THIS CORRESPONDS TO THE LOCATION OF FDG ACTIVITY ON THE PRIOR PET/CT EXAM. INTERVAL FOLLOW-UP IMAGING AND/OR DIRECT VISUALIZATION MAY BE OF BENEFIT TO EXCLUDE UNDERLYING SUBTLE MASS. MODERATE DEGENERATIVE CHANGES INVOLVING THE CERVICAL SPINE. MODERATE ATHEROSCLEROSIS AT THE CAROTID BIFURCATIONS. PARANASAL SINUS MUCOSAL THICKENING/SECRETIONS, DESCRIBED ABOVE. SMALL MILLIMETRIC LYMPH NODES SEEN AT SOME NECK LEVELS, NONE SIGNIFICANTLY ENLARGED BY IMAGING SIZE CRITERIA. IMPRESSION: ASYMMETRIC HIGH DENSITY WITH ILL-DEFINED MARGINS INVOLVING THE ANTERIOR ASPECT OF THE RIGHT PALATINE TONSIL WITHOUT ASSOCIATED NODULARITY. THIS IS A NONSPECIFIC FINDING AND MAY REFLECT HYPEREMIA FROM TONSILLITIS. THIS CORRESPONDS TO THE LOCATION OF FDG ACTIVITY ON THE PRIOR PET/CT EXAM. INTERVAL FOLLOW-UP IMAGING AND/OR DIRECT VISUALIZATION MAY BE OF BENEFIT TO EXCLUDE UNDERLYING SUBTLE MASS. MODERATE DEGENERATIVE CHANGES INVOLVING THE CERVICAL SPINE. MODERATE ATHEROSCLEROSIS AT THE CAROTID BIFURCATIONS. PARANASAL SINUS MUCOSAL THICKENING/SECRETIONS, DESCRIBED ABOVE. SMALL MILLIMETRIC LYMPH NODES SEEN AT SOME NECK LEVELS, NONE SIGNIFICANTLY ENLARGED BY IMAGING SIZE CRITERIA. CT neck 05/28/2021 PET scan IMPRESSION: 1. NECK: * FDG avid soft tissue mass in the right tonsil region could represent tonsillitis versus neoplastic process. Correlate with ENT exam. 2. CHEST: * Enlarging left upper lobe nodule measuring 2.7 x 1.8 cm with max SUV of 4.8 suspicious for neoplasm. No mediastinal or hilar lymphadenopathy. 3. ABDOMEN/PELVIS: * No FDG avid neoplastic process. . 4. EXTREMITIES/SKELETON: * No suspicious FDG avid osseous lesion. ASSESSMENT/PLAN: 1. 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 Status post left upper lobectomy and mediastinal lymphadenectomy 09/26/2021. The primary tumor involved the visceral and parietal pleura with evidence of invasion into the chest wall adipose tissue. Surgical margins negative. Postop it was recommended the patient receive adjuvant chemotherapy with cisplatin plus pemetrexed x4 cycles. He received his first cycle on 10/26/2021, and it was complicated by renal dysfunction. Subsequently the patient's treatment was changed to carboplatin plus pemetrexed. He completed his fourth cycle on 01/22/2022. After completing chemotherapy the patient received adjuvant radiation therapy to the left lung 03/26/2022 - 05/01/2022 (5400 cGy in 27 fractions). August 2022 the patient developed increasing cough and shortness of breath. CT scans 09/17/2022 revealed multiple bilateral pulmonary nodules, suspicious for metastases. PET scan 10/10/2022 revealed a hypermetabolic mass in the left subpectoral region plus bilateral pulmonary nodules consistent with metastatic disease. Biopsy was recommended but the patient declined. Subsequently it was elected to start systemic therapy with pembrolizumab, with plans to give 200 mg IV every 3 weeks. Pembrolizumab cycle 1 was given 10/21/2022. Palliative radiation therapy to the left upper chest wall was given 10/28/2022 - 11/12/2022. The patient was seen on 11/11/2022 for pembrolizumab cycle 2, but treatment postponed due to elevated LFTs. Treatment with Pembrolizumab cycle 2 was resumed on 12/06/2022. Restaging PET scan 01/17/2023 revealed significant improvement in the left chest wall mass, but persistent disease in the lungs bilaterally. Pembrolizumab every 3 weeks was continued. Clinically the patient is minimally symptomatic. We will continue as planned with pembrolizumab and he will receive treatment today. He'll return in 3 weeks for follow-up. Due to his persistent cough and hemoptysis we will arrange for a chest x-ray today. We will restage again with a PET scan at 3 to 4 months. 2. Centrilobular emphysema (HCC) - ICD9: 492.8, ICD10: J43.2 Long history of tobacco abuse, quit September 2021. The patient has chronic shortness of breath and cough secondary to COPD. Currently on antibiotics for suspected bronchitis. 3. Coronary artery disease Status post AMI 2015. Status post CABG x 4 in [place] 2015. Currently stable. Continue management per PCP/cardiology. 4. Peripheral vascular disease Status post balloon angioplasty right lower leg 2019. On long-term antiplatelet agents with Plavix and Pletal. Continue management per PCP/vascular surgery. 5. Abnormal right tonsil on PET scan (05/28/2021) and neck CT (07/11/2021). Radiographic abnormalities identified on baseline PET scan and neck CT. The patient was seen by [facility] ENT on 07/26/2021, and clinical evaluation most consistent with inflammatory/post-infectious findings. No suspicion for malignancy. The patient apparently chews tobacco, and was advised to discontinue. He will follow-up with ENT as indicated. 6. Cancer related pain Severe pain left upper chest wall since August 2022. Currently on Percocet and gabapentin with moderate relief. Will consider referral to [facility] palliative medicine if symptoms persist. 7. Abnormal LFTs Labs from 11/11/2022 revealed significant elevation of the SGOT and SGPT, most likely transaminitis secondary to OTC supplements (fenbendazole +/- curcumin). After discontinuing these supplements the patient's LFTs normalized, but unfortunately he resumed taking them again on 12/06/2022 and his LFTs worsened. The patient discontinued the medications and his LFTs have remained normal since. He was again strictly told to permanently discontinue the supplements or he will not be able to receive standard treatment. 8. Anxiety - ICD9: 300.00, ICD10: F41.9 Continue Xanax as needed for anxiety. The was also has been referred to palliative care. 9. Rash Since mid February 2023 the patient has had an atypical rash involving his arms/hands, neck, and lips. Possible atypical allergic reaction versus viral syndrome. Improved. Brent Miller APRN.RONAL I spent a total of 30 minutes on the date of the service which included preparing to see the patient, [id number] patient care, completing clinical documentation, obtaining and/or reviewing separately obtained history, performing a medically appropriate examination, counseling and educating the patient/family/caregiver, ordering medications, tests, or procedures, independently interpreting results (not separately reported), and communicating results to the patient/family/caregiver. documented in this encounter [facility] 03-11-2023 Note [facility] 03-11-2023 History of Present illness Narrative PATIENT NAME: Pedro Gu DATE: 03/11/2023 PRIMARY CARE PHYSICIAN: Dr. Christina Azul OTHER PHYSICIANS: Dr. Verito Whelan, Dr. Marianne Fields, Dr. Limon Portions of this encounter note have been copied from the note from 02/18/2023 and has been updated where appropriate, and reflect my current medical decision making from today. CC: This is a 68 year old male with metastatic lung cancer, seen for scheduled follow-up and continued treatment. INTERIM HISTORY: At the patient's last visit here he received pembrolizumab and tolerated it well. However, he subsequently developed an atypical rash involving his arms and hands, neck, and lips. He was seen at the emergency room and given a short course of steroids with temporary improvement. After completing his initial course of steroids the rash worsened, and he was recently prescribed a Medrol Dosepak. He has had no fevers or other signs of infection, but over the past several days has developed a cough productive of greenish sputum. Other than the above he has felt well. With treatment his left upper chest pain has completely resolved. No new areas of pain or other systemic symptoms. MEDICATIONS: Current Outpatient Medications Medication Sig methylPREDNISolone (MEDROL, DAVID,) 4 mg Dose-Pack Take by mouth as directed. sertraline (ZOLOFT) 25 mg tablet Take 1 tablet by mouth once daily. OLANZapine orally disintegrating (ZYPREXA ZYDIS) 5 mg disintegrating tablet Take 1 tablet by mouth daily at bedtime. oxyCODONE-acetaminophen (PERCOCET) 5-325 mg tablet Take 1-2 tablets by mouth every 4 hours as needed for pain. ondansetron (ZOFRAN) 8 mg tablet Take 1 tablet by mouth every 8 hours as needed for nausea/vomiting. ipratropium-albuterol (DUONEB) 0.5 mg-3 mg(2.5 mg base)/3 mL nebu Inhale 3 mL as instructed every 6 hours as needed for wheezing/shortness of breath. Nebulizer and Compressor For Neb 1 Each as needed. Use as directed. metoprolol tartrate, short acting, (LOPRESSOR) 25 mg tablet Take 50 mg by mouth twice daily. isosorbide mononitrate ER (IMDUR) 30 mg 24 hr tablet Take 30 mg by mouth once daily. cilostazol (PLETAL) 100 mg tablet Take 1 tablet by mouth twice daily. clopidogrel (PLAVIX) 75 mg tablet Take 1 tablet by mouth once daily. aspirin 81 mg chewable tablet Take 81 mg by mouth once daily. atorvastatin (LIPITOR) 40 mg tablet Take 40 mg by mouth once daily. No current facility-administered medications for this visit. ALLERGIES: ALLERGIES No Known Allergies PAST MEDICAL HISTORY: PAST MEDICAL HISTORY Diagnosis Date Carotid artery disease (HCC) bilateral COPD (chronic obstructive pulmonary disease) (HCC) Heart attack (HCC) History of non-ST elevation myocardial infarction (NSTEMI) HTN (hypertension) Hypertension 09/25/2021 Lung cancer (HCC) Malignant neoplasm of lower lobe of left lung (HCC) Peripheral arterial disease (HCC) 2019 R REGISTRATION COORDINATOR stent PAST SURGICAL HISTORY: PAST SURGICAL HISTORY Procedure Laterality Date BACK SURGERY HX 2019 CABG (4) VEIN GRAFTS & ARTERIAL GRAFT(S) 2016 LOWER EXTREMITY FUNNEL SETTER W/WO STENT Right 2019 right common femoral artery stent REMOVAL OF LUNG,LOBECTOMY Left 09/26/2021 VATS left upper lung wedge resection, completion lobectomy, lymph node dissection, application of Progel to staple line, intercostal nerve blocks for cancer FAMILY HISTORY: FAMILY HISTORY Problem Relation Age of Onset Lung Cancer Father Heart Attack Father Coronary Artery Disease Father SOCIAL HISTORY: Social History Tobacco Use Smoking status: Former Packs/day: 2.00 Years: 50.00 Additional pack years: 0.00 Total pack years: 100.00 Types: Cigarettes Start date: 1970 Passive exposure: Past Smokeless tobacco: Never Tobacco comments: was smoking on and off fully quit 09/14/21 Vaping Use Vaping Use: Never used Substance Use Topics Alcohol use: Yes Alcohol/week: 30.0 standard drinks of alcohol Types: 30 Cans of Beer (12oz) per week Comment: 4-9 beers per day Drug use: Never REVIEW OF SYSTEMS: General: No weight loss, malaise or fevers. Positive fatigue. Decreased appetite. Difficulty sleeping. HEENT: Negative for frequent or significant headaches. No changes in hearing or vision, no nose bleeds or other nasal problems. Respiratory: Negative for wheezing. Chronic shortness of breath. Cardiovascular: Negative for chest pain, leg swelling or palpitations. GI: Negative for abdominal discomfort, blood in stools or black stools or change in bowel habits. : No history of dysuria, frequency or incontinence. Musculoskeletal: Negative for joint pain or swelling and muscle pain. Positive back pain. Skin: Negative for rash, lesions and itching. Hematology/Lymphology: Negative for prolonged bleeding, bruising easily or swollen nodes. Neuro: No history of headaches, syncope, paralysis, seizures or tremors. PHYSICAL EXAM: BP 158/74 Pulse 75 Temp 36.4 C (97.6 F) (Temporal) Resp 16 Ht 168.3 cm (5' 6.26 ) Wt 62.1 kg (137 lb) SpO2 99% BMI 21.94 kg/m ECOG 0 Exam limited to gross visualization where appropriate due to COVID-19. Gen.: This is an age-appropriate patient in no acute distress. Head: Appears atraumatic with no visible lesions. Eyes: Pupils equally round and reactive to light, extraocular muscles are intact. Neck: Supple. Mouth: Masked. Respiratory: Appears to be respiring comfortably. Neurologic: Nonfocal to gross visualization. Alert and oriented 3. Psychiatric: No evidence of inappropriate anxiety or depression. Skin: Visible areas of skin without lesions, wounds or petechiae. Positive rash- mainly involving face and upper back. PATHOLOGY: 10/21/2022 [id number] NGS analysis KRAS G12C mutation present, 5.2% MSI high not detected EGFR, ALK, ROS1, BRAF negative 09/26/2021 Left upper lobectomy and mediastinal lymphadenectomy Lung, left upper lobe, wedge resection and completion lobectomy: - Pleomorphic carcinoma (2.2 cm) (See comment and synoptic template). - Visceral pleural invasion present. - Tumor invades into parietal pleural/chest wall adipose tissue. - Arterial invasion present. - Five hilar/peribronchial lymph nodes, negative for tumor (0/5). - Emphysema with patchy smoking-related interstitial fibrosis. - Margins negative. Molecular markers: RET rearrangement negative, ROS1 negative, BRAF negative, EGFR negative, HER-2 negative, KRAS c34G>T positive, ALK 1 negative, PD-L1 95% LABS: Hemoglobin (g/dL) Date Value 03/11/2023 13.1 07/03/2021 14.2 Hematocrit (%) Date Value 03/11/2023 38.8 07/03/2021 41.8 WBC (k/uL) Date Value 03/11/2023 8.29 07/03/2021 5.83 Platelet Count (k/uL) Date Value 03/11/2023 226 07/03/2021 265 RADIOLOGY/OTHER STUDIES: 01/17/2023 PET scan IMPRESSION: 1. Neck: Persistent hypermetabolic focus in the right tonsillar region. 2. Chest: Interval decrease with decreased FDG activity associated with the left subpectoral region soft tissue mass. Mild residual uptake. Multiple persistent hypermetabolic bilateral lung nodules suspicious for metastases. 3. Abdomen and pelvis: No evidence of FDG avid neoplastic process 4. Skeleton: No hypermetabolic osseous lesions 01/03/2023 Chest CTA ([facility]) Bilateral hilar soft tissue nodules concerning for malignant lymph nodes. Developing nodularity of the right lung with the largest measuring up to 14 mm. 10/10/2022 PET scan IMPRESSION: 1. Neck: hypermetabolic focus in the right tonsillar/parapharyngeal region, similar to prior. 2. Chest: Hypermetabolic left subpectoral region mass. Hypermetabolic bilateral lung nodules. Findings concerning for progression of neoplastic process. 3. Abdomen and pelvis: No evidence of FDG avid neoplastic process 4. Skeleton: No hypermetabolic osseous lesions 09/17/2022 CT chest IMPRESSION: 1. Multiple new and enlarging bilateral pulmonary nodules, highly suspicious for progression of disease. 2. No evidence of new bulky intrathoracic lymphadenopathy. 09/17/2022 CT abdomen/pelvis IMPRESSION: 1. No evidence of abdominal or pelvic metastatic disease. 2. Findings compatible with a subcapsular hematoma within the spleen. 3. No evidence of abdominal or pelvic lymphadenopathy. 06/14/2022 CT Chest IMPRESSION: 1. Several indeterminate subcentimeter nodular opacities measuring up to 7 mm, new since 09/25/21. Consider interval follow-up. 2. Other noncalcified subcentimeter nodular opacities measuring less than 5 mm, stable. 3. New trace loculated left pleural effusion, most likely related to postoperative change. 06/11/2022 Chest xray IMPRESSION: A small loculated left pleural effusion is felt to have progressed in size from the prior study, as above. 04/12/2022 Bone scan ([facility]) Degenerative findings. No evidence of metastatic disease. 05/23/2022 MRI Lumbar Spine Impression: Heterogeneous appearance of the vertebral bodies stable from the prior exam, nonspecific. No enhancing mass. Mild to moderate discogenic changes L2-S1 grossly stable. For minimal stenosis at several levels as detailed. 10/31/2021 Brain MRI IMPRESSION: No evidence of an acute intracranial process. No intracranial enhancing lesion to suggest metastasis. 09/25/2021 CT chest IMPRESSION: Increased peripheral left upper lobe mass with adjacent curvilinear scarlike opacity concerning for neoplasm. No other acute thoracic disease. 07/11/2021 CT neck IMPRESSION: ASYMMETRIC HIGH DENSITY WITH ILL-DEFINED MARGINS INVOLVING THE ANTERIOR ASPECT OF THE RIGHT PALATINE TONSIL WITHOUT ASSOCIATED NODULARITY. THIS IS A NONSPECIFIC FINDING AND MAY REFLECT HYPEREMIA FROM TONSILLITIS. THIS CORRESPONDS TO THE LOCATION OF FDG ACTIVITY ON THE PRIOR PET/CT EXAM. INTERVAL FOLLOW-UP IMAGING AND/OR DIRECT VISUALIZATION MAY BE OF BENEFIT TO EXCLUDE UNDERLYING SUBTLE MASS. MODERATE DEGENERATIVE CHANGES INVOLVING THE CERVICAL SPINE. MODERATE ATHEROSCLEROSIS AT THE CAROTID BIFURCATIONS. PARANASAL SINUS MUCOSAL THICKENING/SECRETIONS, DESCRIBED ABOVE. SMALL MILLIMETRIC LYMPH NODES SEEN AT SOME NECK LEVELS, NONE SIGNIFICANTLY ENLARGED BY IMAGING SIZE CRITERIA. IMPRESSION: ASYMMETRIC HIGH DENSITY WITH ILL-DEFINED MARGINS INVOLVING THE ANTERIOR ASPECT OF THE RIGHT PALATINE TONSIL WITHOUT ASSOCIATED NODULARITY. THIS IS A NONSPECIFIC FINDING AND MAY REFLECT HYPEREMIA FROM TONSILLITIS. THIS CORRESPONDS TO THE LOCATION OF FDG ACTIVITY ON THE PRIOR PET/CT EXAM. INTERVAL FOLLOW-UP IMAGING AND/OR DIRECT VISUALIZATION MAY BE OF BENEFIT TO EXCLUDE UNDERLYING SUBTLE MASS. MODERATE DEGENERATIVE CHANGES INVOLVING THE CERVICAL SPINE. MODERATE ATHEROSCLEROSIS AT THE CAROTID BIFURCATIONS. PARANASAL SINUS MUCOSAL THICKENING/SECRETIONS, DESCRIBED ABOVE. SMALL MILLIMETRIC LYMPH NODES SEEN AT SOME NECK LEVELS, NONE SIGNIFICANTLY ENLARGED BY IMAGING SIZE CRITERIA. CT neck 05/28/2021 PET scan IMPRESSION: 1. NECK: * FDG avid soft tissue mass in the right tonsil region could represent tonsillitis versus neoplastic process. Correlate with ENT exam. 2. CHEST: * Enlarging left upper lobe nodule measuring 2.7 x 1.8 cm with max SUV of 4.8 suspicious for neoplasm. No mediastinal or hilar lymphadenopathy. 3. ABDOMEN/PELVIS: * No FDG avid neoplastic process. . 4. EXTREMITIES/SKELETON: * No suspicious FDG avid osseous lesion. ASSESSMENT/PLAN: 1. 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 Status post left upper lobectomy and mediastinal lymphadenectomy 09/26/2021. The primary tumor involved the visceral and parietal pleura with evidence of invasion into the chest wall adipose tissue. Surgical margins negative. Postop it was recommended the patient receive adjuvant chemotherapy with cisplatin plus pemetrexed x4 cycles. He received his first cycle on 10/26/2021, and it was complicated by renal dysfunction. Subsequently the patient's treatment was changed to carboplatin plus pemetrexed. He completed his fourth cycle on 01/22/2022. After completing chemotherapy the patient received adjuvant radiation therapy to the left lung 03/26/2022 - 05/01/2022 (5400 cGy in 27 fractions). August 2022 the patient developed increasing cough and shortness of breath. CT scans 09/17/2022 revealed multiple bilateral pulmonary nodules, suspicious for metastases. PET scan 10/10/2022 revealed a hypermetabolic mass in the left subpectoral region plus bilateral pulmonary nodules consistent with metastatic disease. Biopsy was recommended but the patient declined. Subsequently it was elected to start systemic therapy with pembrolizumab, with plans to give 200 mg IV every 3 weeks. Pembrolizumab cycle 1 was given 10/21/2022. Palliative radiation therapy to the left upper chest wall was given 10/28/2022 - 11/12/2022. The patient was seen on 11/11/2022 for pembrolizumab cycle 2, but treatment postponed due to elevated LFTs. Treatment with Pembrolizumab cycle 2 was resumed on 12/06/2022. Restaging PET scan 01/17/2023 revealed significant improvement in the left chest wall mass, but persistent disease in the lungs bilaterally. Pembrolizumab every 3 weeks was continued. Clinically the patient is minimally symptomatic. We will continue as planned with pembrolizumab and he will receive treatment today. Return in 3 weeks for follow-up. We will restage again with a PET scan at 3 to 4 months. 2. Centrilobular emphysema (HCC) - ICD9: 492.8, ICD10: J43.2 Long history of tobacco abuse, quit September 2021. The patient has chronic shortness of breath and cough secondary to COPD. Currently on antibiotics for suspected bronchitis. 3. Coronary artery disease Status post AMI 2016. Status post CABG x 4 in [place] 2015. Currently stable. Continue management per PCP/cardiology. 4. Peripheral vascular disease Status post balloon angioplasty right lower leg 2019. On long-term antiplatelet agents with Plavix and Pletal. Continue management per PCP/vascular surgery. 5. Abnormal right tonsil on PET scan (05/28/2021) and neck CT (07/11/2021). Radiographic abnormalities identified on baseline PET scan and neck CT. The patient was seen by [facility] on 07/26/2021, and clinical evaluation most consistent with inflammatory/post-infectious findings. No suspicion for malignancy. The patient apparently chews tobacco, and was advised to discontinue. He will follow-up with ENT as indicated. 6. Cancer related pain Severe pain left upper chest wall since August 2022. Currently on Percocet and gabapentin with moderate relief. Will consider referral to [facility] palliative medicine if symptoms persist. 7. Abnormal LFTs Labs from 11/11/2022 revealed significant elevation of the SGOT and SGPT, most likely transaminitis secondary to OTC supplements (fenbendazole +/- curcumin). After discontinuing these supplements the patient's LFTs normalized, but unfortunately he resumed taking them again on 12/06/2022 and his LFTs worsened. The patient discontinued the medications and his LFTs have remained normal since. He was again strictly told to permanently discontinue the supplements or he will not be able to receive standard treatment. 8. Anxiety - ICD9: 300.00, ICD10: F41.9 Continue Xanax as needed for anxiety. The was also has been referred to palliative care. 9. Rash Since mid February 2023 the patient has had an atypical rash involving his arms/hands, neck, and lips. Possible atypical allergic reaction versus viral syndrome. He will continue with steroids (Medrol Dosepak) as prescribed. Would consider dermatology referral if rash persists. He currently has a productive cough consistent with bronchitis. Will prescribe Z-David. Further evaluation with chest x-ray etc. if symptoms worsen. Pito Grigsby MD documented in this encounter [facility] 03-10-2023 Miscellaneous Notes In[facility] Jose Stacy, MoeD, BCOP Pt notified of script and verbalizes understanding. Disposition: per Dr Grigsby, patient directed to: [facility]. Provided instructions and will call back. BRM: Script pended. Denita Rai RN I would recommend a Medrol Dosepak which is easier to wean off compared to prednisone. Please prescribe to local pharmacy. Pt was taking Prednisone 40 mg/day for rash. Took his last dose yesterday. Reports that the rash has improved, but is not gone completely. Pt requesting a refill of the Prednisone. Will you authorize? Denita Rai RN documented in this encounter [facility] 03-05-2023 Miscellaneous Notes Pt notified. Disposition: per Dr Grigsby, patient directed to: [facility]. Provided instructions and will call back. Pt will call back if his symptoms persist. Denita Rai RN Agree with rec. Tell patient to call if cough gets worse and we can prescribe an antibiotic Pt c/o persistent cough w/ clear sputum. Notes he will usually cough up nasty bloody phlegm one time in the morning, but then it is clear the rest of the day. Denies fevers or chills. Throat is itchy. Was sore this morning, but that improved after drinking warm tea. Recommended he try OTC robitussin or mucinex for his cough. Any other suggestions? Denita Rai RN documented in this encounter [facility] 02-18-2023 Nurse Note Patient hurt his back so he is having pain from that today. Pavithra Jacinto MA documented in this encounter [facility] 02-18-2023 Note [facility] 02-18-2023 History of Present illness Narrative PATIENT NAME: Pedro Gu DATE: 02/18/2023 PRIMARY CARE PHYSICIAN: Dr. Christina Azul OTHER PHYSICIANS: Dr. Verito Whelan, Dr. Marianne Fields, Dr. Limon Portions of this encounter note have been copied from the note from 01/28/2023 and has been updated where appropriate, and reflect my current medical decision making from today. CC: This is a 67 year old male with metastatic lung cancer, seen for scheduled follow-up and continued treatment. INTERIM HISTORY: The patient remains on pembrolizumab every 3 weeks, and is tolerating it well. Since discontinuing fenbendazole and his other alternative cancer treatments his LFTs have remained normal. On follow-up today he feels well. His left upper chest pain has resolved. He takes Xanax for anxiety with great relief. No significant shortness of breath or other pulmonary symptoms. MEDICATIONS: Current Outpatient Medications Medication Sig sertraline (ZOLOFT) 25 mg tablet Take 1 tablet by mouth once daily. OLANZapine orally disintegrating (ZYPREXA ZYDIS) 5 mg disintegrating tablet Take 1 tablet by mouth daily at bedtime. oxyCODONE-acetaminophen (PERCOCET) 5-325 mg tablet Take 1-2 tablets by mouth every 4 hours as needed for pain. ondansetron (ZOFRAN) 8 mg tablet Take 1 tablet by mouth every 8 hours as needed for nausea/vomiting. ipratropium-albuterol (DUONEB) 0.5 mg-3 mg(2.5 mg base)/3 mL nebu Inhale 3 mL as instructed every 6 hours as needed for wheezing/shortness of breath. Nebulizer and Compressor For Neb 1 Each as needed. Use as directed. metoprolol tartrate, short acting, (LOPRESSOR) 25 mg tablet Take 50 mg by mouth twice daily. isosorbide mononitrate ER (IMDUR) 30 mg 24 hr tablet Take 30 mg by mouth once daily. cilostazol (PLETAL) 100 mg tablet Take 1 tablet by mouth twice daily. clopidogrel (PLAVIX) 75 mg tablet Take 1 tablet by mouth once daily. aspirin 81 mg chewable tablet Take 81 mg by mouth once daily. atorvastatin (LIPITOR) 40 mg tablet Take 40 mg by mouth once daily. No current facility-administered medications for this visit. ALLERGIES: ALLERGIES No Known Allergies PAST MEDICAL HISTORY: PAST MEDICAL HISTORY Diagnosis Date Carotid artery disease (HCC) bilateral COPD (chronic obstructive pulmonary disease) (HCC) Heart attack (HCC) History of non-ST elevation myocardial infarction (NSTEMI) HTN (hypertension) Hypertension 09/25/2021 Lung cancer (HCC) Malignant neoplasm of lower lobe of left lung (HCC) Peripheral arterial disease (HCC) 2019 R REGISTRATION COORDINATOR stent PAST SURGICAL HISTORY: PAST SURGICAL HISTORY Procedure Laterality Date BACK SURGERY HX 2019 CABG (4) VEIN GRAFTS & ARTERIAL GRAFT(S) 2016 LOWER EXTREMITY FUNNEL SETTER W/WO STENT Right 2019 right common femoral artery stent REMOVAL OF LUNG,LOBECTOMY Left 09/26/2021 VATS left upper lung wedge resection, completion lobectomy, lymph node dissection, application of Progel to staple line, intercostal nerve blocks for cancer FAMILY HISTORY: FAMILY HISTORY Problem Relation Age of Onset Lung Cancer Father Heart Attack Father Coronary Artery Disease Father SOCIAL HISTORY: Social History Tobacco Use Smoking status: Former Packs/day: 2.00 Years: 50.00 Total pack years: 100.00 Types: Cigarettes Start date: 1970 Passive exposure: Past Smokeless tobacco: Never Tobacco comments: was smoking on and off fully quit 09/14/21 Vaping Use Vaping Use: Never used Substance Use Topics Alcohol use: Yes Alcohol/week: 30.0 standard drinks of alcohol Types: 30 Cans of Beer (12oz) per week Comment: 4-9 beers per day Drug use: Never REVIEW OF SYSTEMS: General: No weight loss, malaise or fevers. Positive fatigue. Decreased appetite. Difficulty sleeping. HEENT: Negative for frequent or significant headaches. No changes in hearing or vision, no nose bleeds or other nasal problems. Respiratory: Negative for wheezing. Chronic shortness of breath. Cardiovascular: Negative for chest pain, leg swelling or palpitations. GI: Negative for abdominal discomfort, blood in stools or black stools or change in bowel habits. : No history of dysuria, frequency or incontinence. Musculoskeletal: Negative for joint pain or swelling and muscle pain. Positive back pain. Skin: Negative for rash, lesions and itching. Hematology/Lymphology: Negative for prolonged bleeding, bruising easily or swollen nodes. Neuro: No history of headaches, syncope, paralysis, seizures or tremors. PHYSICAL EXAM: BP 161/103 Pulse (!) 134 Temp 36.6 C (97.9 F) (Temporal) Resp 16 Ht 168.3 cm (5' 6.26 ) Wt 60.2 kg (132 lb 12.8 oz) SpO2 98% BMI 21.27 kg/m ECOG 0 Exam limited to gross visualization where appropriate due to COVID-19. Gen.: This is an age-appropriate patient in no acute distress. Head: Appears atraumatic with no visible lesions. Eyes: Pupils equally round and reactive to light, extraocular muscles are intact. Neck: Supple. Mouth: Masked. Respiratory: Appears to be respiring comfortably. Neurologic: Nonfocal to gross visualization. Alert and oriented 3. Psychiatric: No evidence of inappropriate anxiety or depression. Skin: Visible areas of skin without lesions, wounds or petechiae. Positive rash- mainly involving face and upper back. 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 - Visceral pleural invasion present. - Tumor invades into parietal pleural/chest wall adipose tissue. - Arterial invasion present. - Five hilar/peribronchial lymph nodes, negative for tumor (0/5). - Emphysema with patchy smoking-related interstitial fibrosis. - Margins negative. Molecular markers: RET rearrangement negative, ROS1 negative, BRAF negative, EGFR negative, HER-2 negative, KRAS c34G>T positive, ALK 1 negative, PD-L1 95% LABS: Hemoglobin (g/dL) Date Value 02/18/2023 14.3 07/03/2021 14.2 Hematocrit (%) Date Value 02/18/2023 40.6 07/03/2021 41.8 WBC (k/uL) Date Value 02/18/2023 6.67 07/03/2021 5.83 Platelet Count (k/uL) Date Value 02/18/2023 208 07/03/2021 265 RADIOLOGY/OTHER STUDIES: 01/17/2023 PET scan IMPRESSION: 1. Neck: Persistent hypermetabolic focus in the right tonsillar region. 2. Chest: Interval decrease with decreased FDG activity associated with the left subpectoral region soft tissue mass. Mild residual uptake. Multiple persistent hypermetabolic bilateral lung nodules suspicious for metastases. 3. Abdomen and pelvis: No evidence of FDG avid neoplastic process 4. Skeleton: No hypermetabolic osseous lesions 01/03/2023 Chest CTA ([facility]) Bilateral hilar soft tissue nodules concerning for malignant lymph nodes. Developing nodularity of the right lung with the largest measuring up to 14 mm. 10/10/2022 PET scan IMPRESSION: 1. Neck: hypermetabolic focus in the right tonsillar/parapharyngeal region, similar to prior. 2. Chest: Hypermetabolic left subpectoral region mass. Hypermetabolic bilateral lung nodules. Findings concerning for progression of neoplastic process. 3. Abdomen and pelvis: No evidence of FDG avid neoplastic process 4. Skeleton: No hypermetabolic osseous lesions 09/17/2022 CT chest IMPRESSION: 1. Multiple new and enlarging bilateral pulmonary nodules, highly suspicious for progression of disease. 2. No evidence of new bulky intrathoracic lymphadenopathy. 09/17/2022 CT abdomen/pelvis IMPRESSION: 1. No evidence of abdominal or pelvic metastatic disease. 2. Findings compatible with a subcapsular hematoma within the spleen. 3. No evidence of abdominal or pelvic lymphadenopathy. 06/14/2022 CT Chest IMPRESSION: 1. Several indeterminate subcentimeter nodular opacities measuring up to 7 mm, new since 09/25/21. Consider interval follow-up. 2. Other noncalcified subcentimeter nodular opacities measuring less than 5 mm, stable. 3. New trace loculated left pleural effusion, most likely related to postoperative change. 06/11/2022 Chest xray IMPRESSION: A small loculated left pleural effusion is felt to have progressed in size from the prior study, as above. 04/12/2022 Bone scan ([facility]) Degenerative findings. No evidence of metastatic disease. 05/23/2022 MRI Lumbar Spine Impression: Heterogeneous appearance of the vertebral bodies stable from the prior exam, nonspecific. No enhancing mass. Mild to moderate discogenic changes L2-S1 grossly stable. For minimal stenosis at several levels as detailed. 10/31/2021 Brain MRI IMPRESSION: No evidence of an acute intracranial process. No intracranial enhancing lesion to suggest metastasis. 09/25/2021 CT chest IMPRESSION: Increased peripheral left upper lobe mass with adjacent curvilinear scarlike opacity concerning for neoplasm. No other acute thoracic disease. 07/11/2021 CT neck IMPRESSION: ASYMMETRIC HIGH DENSITY WITH ILL-DEFINED MARGINS INVOLVING THE ANTERIOR ASPECT OF THE RIGHT PALATINE TONSIL WITHOUT ASSOCIATED NODULARITY. THIS IS A NONSPECIFIC FINDING AND MAY REFLECT HYPEREMIA FROM TONSILLITIS. THIS CORRESPONDS TO THE LOCATION OF FDG ACTIVITY ON THE PRIOR PET/CT EXAM. INTERVAL FOLLOW-UP IMAGING AND/OR DIRECT VISUALIZATION MAY BE OF BENEFIT TO EXCLUDE UNDERLYING SUBTLE MASS. MODERATE DEGENERATIVE CHANGES INVOLVING THE CERVICAL SPINE. MODERATE ATHEROSCLEROSIS AT THE CAROTID BIFURCATIONS. PARANASAL SINUS MUCOSAL THICKENING/SECRETIONS, DESCRIBED ABOVE. SMALL MILLIMETRIC LYMPH NODES SEEN AT SOME NECK LEVELS, NONE SIGNIFICANTLY ENLARGED BY IMAGING SIZE CRITERIA. IMPRESSION: ASYMMETRIC HIGH DENSITY WITH ILL-DEFINED MARGINS INVOLVING THE ANTERIOR ASPECT OF THE RIGHT PALATINE TONSIL WITHOUT ASSOCIATED NODULARITY. THIS IS A NONSPECIFIC FINDING AND MAY REFLECT HYPEREMIA FROM TONSILLITIS. THIS CORRESPONDS TO THE LOCATION OF FDG ACTIVITY ON THE PRIOR PET/CT EXAM. INTERVAL FOLLOW-UP IMAGING AND/OR DIRECT VISUALIZATION MAY BE OF BENEFIT TO EXCLUDE UNDERLYING SUBTLE MASS. MODERATE DEGENERATIVE CHANGES INVOLVING THE CERVICAL SPINE. MODERATE ATHEROSCLEROSIS AT THE CAROTID BIFURCATIONS. PARANASAL SINUS MUCOSAL THICKENING/SECRETIONS, DESCRIBED ABOVE. SMALL MILLIMETRIC LYMPH NODES SEEN AT SOME NECK LEVELS, NONE SIGNIFICANTLY ENLARGED BY IMAGING SIZE CRITERIA. CT neck 05/28/2021 PET scan IMPRESSION: 1. NECK: * FDG avid soft tissue mass in the right tonsil region could represent tonsillitis versus neoplastic process. Correlate with ENT exam. 2. CHEST: * Enlarging left upper lobe nodule measuring 2.7 x 1.8 cm with max SUV of 4.8 suspicious for neoplasm. No mediastinal or hilar lymphadenopathy. 3. ABDOMEN/PELVIS: * No FDG avid neoplastic process. . 4. EXTREMITIES/SKELETON: * No suspicious FDG avid osseous lesion. ASSESSMENT/PLAN: 1. 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 Status post left upper lobectomy and mediastinal lymphadenectomy 09/26/2021. The primary tumor involved the visceral and parietal pleura with evidence of invasion into the chest wall adipose tissue. Surgical margins negative. Postop it was recommended the patient receive adjuvant chemotherapy with cisplatin plus pemetrexed x4 cycles. He received his first cycle on 10/26/2021, and it was complicated by renal dysfunction. Subsequently the patient's treatment was changed to carboplatin plus pemetrexed. He completed his fourth cycle on 01/22/2022. After completing chemotherapy the patient received adjuvant radiation therapy to the left lung 03/26/2022 - 05/01/2022 (5400 cGy in 27 fractions). August 2022 the patient developed increasing cough and shortness of breath. CT scans 09/17/2022 revealed multiple bilateral pulmonary nodules, suspicious for metastases. PET scan 10/10/2022 revealed a hypermetabolic mass in the left subpectoral region plus bilateral pulmonary nodules consistent with metastatic disease. Biopsy was recommended but the patient declined. Subsequently it was elected to start systemic therapy with pembrolizumab, with plans to give 200 mg IV every 3 weeks. Pembrolizumab cycle 1 was given 10/21/2022. Palliative radiation therapy to the left upper chest wall was given 10/28/2022 - 11/12/2022. The patient was seen on 11/11/2022 for pembrolizumab cycle 2, but treatment postponed due to elevated LFTs. Treatment with Pembrolizumab cycle 2 was resumed on 12/06/2022. Restaging PET scan 01/17/2023 revealed significant improvement in the left chest wall mass, but but persistent disease in the lungs bilaterally. Pembrolizumab every 3 weeks was continued. Clinically the patient is minimally symptomatic. We will continue as planned with pembrolizumab and he will receive treatment today. Return in 3 weeks for follow-up. We will restage again with a PET scan at 3 to 4 months. 2. Centrilobular emphysema (HCC) - ICD9: 492.8, ICD10: J43.2 Long history of tobacco abuse, quit September 2021. The patient has chronic shortness of breath and cough secondary to COPD. Currently on antibiotics for suspected bronchitis. 3. Coronary artery disease Status post AMI 2016. Status post CABG x 4 in [place] 2016. Currently stable. Continue management per PCP/cardiology. 4. Peripheral vascular disease Status post balloon angioplasty right lower leg 2019. On long-term antiplatelet agents with Plavix and Pletal. Continue management per PCP/vascular surgery. 5. Abnormal right tonsil on PET scan (05/28/2021) and neck CT (07/11/2021). Radiographic abnormalities identified on baseline PET scan and neck CT. The patient was seen by [facility] ENT on 07/26/2021, and clinical evaluation most consistent with inflammatory/post-infectious findings. No suspicion for malignancy. The patient apparently chews tobacco, and was advised to discontinue. He will follow-up with ENT as indicated. 6. Cancer related pain Severe pain left upper chest wall since August 2022. Currently on Percocet and gabapentin with moderate relief. Will consider referral to [facility] palliative medicine if symptoms persist. 7. Abnormal LFTs Labs from 11/11/2022 revealed significant elevation of the SGOT and SGPT, most likely transaminitis secondary to OTC supplements (fenbendazole +/- curcumin). After discontinuing these supplements the patient's LFTs normalized, but unfortunately he resumed taking them again on 12/06/2022 and his LFTs worsened. The patient discontinued the medications and his LFTs have remained normal since. He was again strictly told to permanently discontinue the supplements or he will not be able to receive standard treatment. 8. Anxiety - ICD9: 300.00, ICD10: F41.9 Continue Xanax as needed for anxiety. The was also has been referred to palliative care. Pito Grigsby MD documented in this encounter [facility] 02-17-2023 Miscellaneous Notes Patient has an OTV appointment on 02/18. Please place lab orders. Yani Singer documented in this encounter [facility] 02-06-2023 Miscellaneous Notes ER records scanned. FYI: Pt reports that he went to [facility] ER w/ a right ear ache. Diagnosed w/ an ear infection. Sent home on Amoxicillin 500 mg BID x 10 days and Ciprodex gtts BID x 7 days. Tomasa: Please scan pt's ER records from [facility]. Thanks! Denita Rai RN documented in this encounter [facility] 01-28-2023 History of Present illness Narrative Radiation Oncology - Follow Up Note PATIENT NAME: Pedro Gu PATIENT DIAGNOSIS: Lung cancer, left upper lobe, pleomorphic carcinoma, stage IIb [id number], stage IIB AJCC 8th edition (chest wall invasion), PD-L1 95%, KRAS G12C mutation present RADIATION SUMMARY: Course 1: DATES OF TREATMENT: 03/26/2022- 05/01/2022 AREA TREATED: left lung DELIVERED DOSE: Area: left lung 5400 cGy in 27 fractions, 2 Arcs, IMRT (VMAT), 6MV/ with daily CBCT TOTAL: 5400 cGy in 27 fractions ELAPSED TIME: 36 days. Course 2: INTERVAL HISTORY: Patient states he is doing fairly well. No significant left shoulder or upper chest wall pain. He is here receiving chemotherapy today. PET/CT 01/17/2023: 1. Neck: Persistent hypermetabolic focus in the right tonsillar region. 2. Chest: Interval decrease with decreased FDG activity associated with the left subpectoral region soft tissue mass. Mild residual uptake. Multiple persistent hypermetabolic bilateral lung nodules suspicious for metastases. 3. Abdomen and pelvis: No evidence of FDG avid neoplastic process 4. Skeleton: No hypermetabolic osseous lesions ALLERGIES No Known Allergies MEDICATIONS: sertraline (ZOLOFT) 25 mg tablet Take 1 tablet by mouth once daily. OLANZapine orally disintegrating (ZYPREXA ZYDIS) 5 mg disintegrating tablet Take 1 tablet by mouth daily at bedtime. ALPRAZolam (XANAX) 0.25 mg tablet Take 1 tablet by mouth three times daily as needed for up to 15 days. oxyCODONE-acetaminophen (PERCOCET) 5-325 mg tablet Take 1-2 tablets by mouth every 4 hours as needed for pain. ondansetron (ZOFRAN) 8 mg tablet Take 1 tablet by mouth every 8 hours as needed for nausea/vomiting. ipratropium-albuterol (DUONEB) 0.5 mg-3 mg(2.5 mg base)/3 mL nebu Inhale 3 mL as instructed every 6 hours as needed for wheezing/shortness of breath. Nebulizer and Compressor For Neb 1 Each as needed. Use as directed. metoprolol tartrate, short acting, (LOPRESSOR) 25 mg tablet Take 50 mg by mouth twice daily. isosorbide mononitrate ER (IMDUR) 30 mg 24 hr tablet Take 30 mg by mouth once daily. cilostazol (PLETAL) 100 mg tablet Take 1 tablet by mouth twice daily. clopidogrel (PLAVIX) 75 mg tablet Take 1 tablet by mouth once daily. aspirin 81 mg chewable tablet Take 81 mg by mouth once daily. atorvastatin (LIPITOR) 40 mg tablet Take 40 mg by mouth once daily. REVIEW OF SYSTEMS: GENERAL: SEE HPI. HEENT: Negative for sudden vision or hearing changes. NECK: Negative for masses in the neck. RESPIRATORY: See HPI CARDIAC: Negative for chest pain, palpitations, murmurs, or syncopal episodes. GI: Negative for nausea, vomiting, diarrhea, constipation, blood per rectum, or melena. : Negative for dysuria, hematuria, urgency, frequency or incontinence. MUSCULOSKELETAL: See HPI NEURO: Negative for dizziness, headache, weakness or numbness. HEMATOLOGIC: Negative for bleeding or easy bruising. SKIN: Negative for rashes or other skin changes. PHYSICAL EXAM: KPS: 100 General Appearance: Alert and oriented. No acute distress. ASSESSMENT/PLAN: Lung cancer, left upper lobe, pleomorphic carcinoma, stage IIb [id number], stage IIB AJCC 8th edition (chest wall invasion), PD-L1 95%, KRAS G12C mutation present Doing fairly well, and has had a good response to recent left supraventricular chest wall radiation. He continues active follow-up with Dr. Grigsby. We will plan to see patient back on an as-needed basis. Signed by: Jyoti Limon MD cc: Christina Azul [address] [place] [address] documented in this encounter [facility] 01-13-2023 Miscellaneous Notes Pt notified and verbalizes understanding. Denita Rai RN The following approved medication requests have been transmitted electronically. Requested Prescriptions Signed Prescriptions Disp Refills ALPRAZolam (XANAX) 0.25 mg tablet 15 tablet 0 Sig: Take 1 tablet by mouth twice daily for 7 days. Authorizing Provider: BRENT MILLER APRN.RN DERMATOLOGY Patient phones requesting refills as follows: Last script written on 01/07/23 for 7 day supply. Requested Prescriptions Pending Prescriptions Disp Refills ALPRAZolam (XANAX) 0.25 mg tablet 15 tablet 0 Sig: Take 1 tablet by mouth twice daily for 7 days. Please review and advise. Denita Rai RN documented in this encounter [facility] 01-13-2023 Miscellaneous Notes Patient is notified of appointments Attempted to contact patient to inform him of new appointment date & time; No Answer/ VM also full. Will attempt again at a later time. Cliff Marcano Cliff; Will you please reschedule Maren's follow up with Dr. Limon to 01/28/23 same day as med onc. Dr. Limon would like PET results scheduled 01/17/23. Rosibel Wheeler LPN documented in this encounter [facility] 01-09-2023 Miscellaneous Notes Records faxed to [facility] [phone]. documented in this encounter [facility] 01-08-2023 Miscellaneous Notes Social Work Problem Referral Note INFORMATION/REFERRAL : Pedro Gu 67 year old male was referred by Leonel Zhu to [facility] Social Work for the following reason(s): Alcohol Abuse PERSONS INTERVIEWED: patient INTERVENTION: Information & Referral Service Co-ordination Affect/Mood: The patient is noted as labile, withdrawn, and difficult or unable to assess IDENTIFIED PROBLEMS/NEEDS: Patient reports alcohol abuse. Continue to assess/collaborate Intervention/Referral to be provided:Patient is not interested in any alcohol resources. IMPRESSION/PLAN:SW received a referral from Leonel Zhu that during her assessment on 01/07/23 it was noted that pt does admit he had a kumar since Friday and has been consuming large amounts of beer. During encounter he frequently changes topic to reference beer and/or asking how much longer he has to be present. SW called Patient to follow up. Patient reports that he was in a local ED on Friday and was told that he has stage IV cancer. Patient said that he decided to get wasted because he didn't give a sh*t . Patient admits to drinking beer all weekend long. When asked about his alcohol consumption today, he states that he has not drank that much He equates 4-5 beers as being not much today . Patient is not interested in any alcohol resources. SW gently spoke about how excessive alcohol consumption can negatively impact cancer treatments.Patient commented that he has obtained sobriety on his own without any help and if wants to do it again he can. SW encouraged Patient to reach out to this SW if he changes his mind. Patient was appreciative of the call. F/U APPOINTMENT: PRN Assigned SW listed in Care Team tab: Yes SUMA Finnegan documented in this encounter [facility] 01-07-2023 History of Present illness Narrative Oncology Nutrition Therapy Reassessment RECOMMENDED MALNUTRITION DIAGNOSIS: NO MALNUTRITION IDENTIFIED Some elements copied from my note on 10/30/2022, have been updated and all reflect current decision making from today, 01/07/2023 Nutrition Diagnosis: Increased protein and energy needs related to hypermetabolic disease process as evidenced by need for weight maintenance and preservation of muscle mass. Nutrition Intervention: -continue small frequent meals and snacks -reviewed simple vs complex carbohydrates -discussed supplementation -rec ensure complete or equivalent, goal of 1-2 per day -reviewed dietary sources of potassium due to low serum K+ levels -encouraged ongoing hydration -provider contact information provided for further questions/concerns Nutrition Monitoring & Evaluation: -PO Intake -Wt status -BM's -Supplement tolerance/acceptance -Biochemical Markers -Plan of care Date of last encounter: October 30, 2022 Patient met goal(s): Partially Patient's symptoms are: Behavioral: altered appetite Weight Concerns: weight loss Pt presents for nutrition counseling for lung cancer. Pt is currently being treated with keytruda. Pt denies any chewing/swallowing issues, denies current N/V/D/C. Pt reports having an appetite, but intakes vary. Pt is concerned today about sugar and cancer and has questions about sugar content of ONS. Attempted to have discussion regarding these concerns, however pt does admit he had a kumar since Friday and has been consuming large amounts of beer. During encounter he frequently changes topic to reference beer and/or asking how much longer he has to be present. Written resources provided to patient. Contacted nurse international sales manager and SW regarding patient's current condition and treatment nurses also aware. Thank you for allowing me to participate in the care of this pt. Readiness to Learn: Cognitive ability: Alert and oriented Motivation to learn: Interested Family support: High - Very involved in pt care Instruction provided to: Patient and friend/other Patient learns best by: Individual Instruction Factors affecting learning: Emotional Factors: pt states he is having difficulty coping Physical limitations affecting learning: None Educational materials provided: Sugar and Cancer, Potassium, Smoothie Recipes Anthropometrics: Height: Last 1 Encounter Ht Readings: Date: Ht: 01/07/2023 168.3 cm (5' 6.26 ) Current weight: Last 1 Encounter Wt Readings: Date: Wt: 01/07/2023 57.4 kg (126 lb 9.6 oz) Estimated body mass index is 20.27 kg/m as calculated from the following: Height as of an earlier encounter on 01/07/23: 168.3 cm (5' 6.26 ). Weight as of an earlier encounter on 01/07/23: 57.4 kg (126 lb 9.6 oz). Resting Metabolic Rate: 1310 Weight Loss: 2.1kg (3.5%) x 1 mo- not considered clinically significant Dosing Weight: 57.4 kg Estimated kilocalorie needs: 5668-2126 kilocalories determined by 30-35 kcal/kg Estimated protein needs: 57-86 grams determined by 1.0-1.5 g/kg Dosing weight Estimated fluid needs: ~1813-0016 milliliters based on 1 mL per kcal (unless otherwise indicated) Nutrition Focused Physical Exam: Unable to perform exam due to potential for patient discomfort (physical/emotional), will re-attempt during reassessment. Potential Signs of Inflammation: chronic condition Allergies: Patient has no known allergies. Medications: Current Outpatient Medications Medication Sig Dispense Refill ALPRAZolam (XANAX) 0.25 mg tablet Take 1 tablet by mouth twice daily for 7 days. 15 tablet 0 azithromycin (ZITHROMAX Z-DAVID) 250 mg tablet Take two (2) tablets by mouth the first day and then one (1) tablet daily for 4 days. 6 tablet 0 diphenhydrAMINE 12.5 mg/5 mL lidocaine visc 2% MAALOX 200-200-20 mg/5 mL nystatin prednisoLONE 15 mg/5 mL oral liquid 1:1:1:1:1 (CPD) Take 5 mL by mouth every 6 hours as needed. Swish and Swallow 250 mL 1 diphenhydrAMINE 12.5 mg/5 mL lidocaine visc 2% MAALOX 200-200-20 mg/5 mL nystatin prednisoLONE 15 mg/5 mL oral liquid 1:1:1:1:1 (CPD) Take 5 mL by mouth every 6 hours as needed. 300 mL 1 oxyCODONE-acetaminophen (PERCOCET) 5-325 mg tablet Take 1-2 tablets by mouth every 4 hours as needed for pain. 50 tablet 0 ondansetron (ZOFRAN) 8 mg tablet Take 1 tablet by mouth every 8 hours as needed for nausea/vomiting. 90 tablet 1 gabapentin (NEURONTIN) 300 mg capsule Take 1 capsule by mouth twice daily for 30 days. 60 capsule 2 ipratropium-albuterol (DUONEB) 0.5 mg-3 mg(2.5 mg base)/3 mL nebu Inhale 3 mL as instructed every 6 hours as needed for wheezing/shortness of breath. 120 Each 3 Nebulizer and Compressor For Neb 1 Each as needed. Use as directed. 1 Each 0 metoprolol tartrate, short acting, (LOPRESSOR) 25 mg tablet Take 50 mg by mouth twice daily. isosorbide mononitrate ER (IMDUR) 30 mg 24 hr tablet Take 30 mg by mouth once daily. cilostazol (PLETAL) 100 mg tablet Take 1 tablet by mouth twice daily. clopidogrel (PLAVIX) 75 mg tablet Take 1 tablet by mouth once daily. aspirin 81 mg chewable tablet Take 81 mg by mouth once daily. atorvastatin (LIPITOR) 40 mg tablet Take 40 mg by mouth once daily. No current facility-administered medications for this visit. Facility-Administered Medications Ordered in Other Visits Medication Dose Route Frequency Provider Last Rate Last Admin pembrolizumab 200 mg in NaCl 0.9% 66 mL (KEYTRUDA) 200 mg INTRAVENOUS ONCE Pito Grigsby MD 200 mg at 01/07/23 1206 NaCl 0.9% iv infusion 500-999 mL/hr INTRAVENOUS PRN Pito Grigsby MD diphenhydrAMINE 50 mg injection (BENADRYL) 50 mg INTRAVENOUS PRN Pito Grigsby MD hydrocortisone sodium succinate (PF) 100 mg injection (Solu-CORTEF) 100 mg INTRAVENOUS PRN Pito Grigsby MD EPINEPHrine 1 mg/mL (1 mL) 0.3 mg injection 0.3 mg INTRAMUSCULAR PRN Pito Grigsby MD sodium chloride 0.9 % (flush) 10-20 mL (BD POSIFLUSH) 10-20 mL INTRAVENOUS PRN Pito Grigsby MD sodium chloride 0.9 % (flush) 10-20 mL (BD POSIFLUSH) 10-20 mL INTRAVENOUS DIRECTED PRN Pito Grigsby MD Need for Follow up: prn per pt request Referred by: self MNT Billing Type: Re-assess/15 min 2 units Time Spent with Patient: 30 minutes Signed by: Dominique Murphy MS, RDN, LD documented in this encounter [facility] 01-07-2023 History of Present illness Narrative LFT's reviewed with HM, ok to proceed with tx as written. Aurelia Bradley RN documented in this encounter [facility] 01-07-2023 Miscellaneous Notes Disregard. Patient just showed and currently in office now. Lisa Figueroa Patient did not show for RV and treatment this morning. Lisa Figueroa documented in this encounter [facility] 01-06-2023 Miscellaneous Notes Patient has an OTV appointment on 01/06. Please place lab orders. Yani Singer documented in this encounter [facility] 01-03-2023 Miscellaneous Notes Disposition: per , patient directed to: Emergency Room due to the issue being urgent. Pt confirms that he will be going to [facility] ER. Report phoned to Tea [facility] RN. Pt's last office note, copy of this encounter, and med list faxed. Denita Rai RN Yes, the cough w/ the blood tinged sputum is only in the mornings. Slightly more SOB the last few days, but still able to walk 2 miles per day. Denies chest pain. Pt was advised of your recommendations and verbalizes understanding. Denita Rai RN Is it only in the mornings? Does he have a cough or shortness of breath? There are many reasons for hemoptysis and he should probably go to ER if this is an ongoing thing for stat imaging to rule out PE vs other causes such as infection or cancer progression, etc. . Mindy Pandya PA-C Pt reports streaks of bright red blood in his sputum every morning x 1 week. This is new for the pt. Takes Plavix and Baby Aspirin daily. Any concerns? Denita Rai RN documented in this encounter [facility] 12-24-2022 Miscellaneous Notes Rosemarie from [facility] states that they received pt's MMW script, however, they are currently out of viscous lidocaine. Script will be filled at our pharmacy. Pt notified and verbalizes understanding. [facility] instructed to cancel the script. Denita Rai RN documented in this encounter [facility] 12-24-2022 Miscellaneous Notes MMW script faxed to [facility] @ [phone]. Denita Rai RN The following approved medication requests have been transmitted electronically. Requested Prescriptions Signed Prescriptions Disp Refills azithromycin (ZITHROMAX Z-DAVID) 250 mg tablet 6 tablet 0 Sig: Take two (2) tablets by mouth the first day and then one (1) tablet daily for 4 days. Authorizing Provider: BRENT MILLER diphenhydrAMINE 12.5 mg/5 mL lidocaine visc 2% MAALOX 200-200-20 mg/5 mL nystatin prednisoLONE 15 mg/5 mL oral liquid 1:1:1:1:1 (CPD) 250 mL 1 Sig: Take 5 mL by mouth every 6 hours as needed. Swish and Swallow Authorizing Provider: BRENT MILLER APRN.RN DERMATOLOGY Pt notified and verbalizes understanding. WILIAM/Brent: Scripts pended. Denita Rai RN Would consider antibiotics with Z-David. Magic mouthwash as needed. Pt c/o cough and sore throat x 1 week. Denies fevers or chills. Cough is productive w/ clear sputum. Has a white spot near the back of his throat. Began gargling w/ warm salt water just this morning. Any other recommendations for the pt? Denita Rai RN documented in this encounter [facility] 12-17-2022 History of Present illness Narrative LFTs reviewed with Dr. Grigsby. Hold tx today. Pt to return in 10 days for repeat labs and 3 weeks for labs/OV/and possible tx. Tx nurse and pt informed. Schedule adjusted by PSS. Ania Peters RN CMP reviewed with [facility] per Janell Rai RN. Tx cancelled for today. Pt to return for repeat labs only in 10 days and return in 3 weeks for labs, OV and chemo. Pt notified and verbalizes understanding. Aurelia Bradley RN documented in this encounter [facility] 12-17-2022 History of Present illness Narrative PATIENT NAME: Pedro Gu DATE: 12/17/2022 PRIMARY CARE PHYSICIAN: Dr. hCristina Azul OTHER PHYSICIANS: Dr. Verito Whelan, Dr. Marianne Fields, Dr. Limon Portions of this encounter note have been copied from the note from 12/06/2022 and has been updated where appropriate, and reflect my current medical decision making from today. CC: This is a 67 year old male with recently diagnosed metastatic lung cancer, seen for scheduled follow-up. INTERIM HISTORY: The patient received pembrolizumab cycle 2 on 11/25/2022, and tolerated it well. Since then his LFTs essentially normalized, and apparently he resumed taking fenbendazole on 12/06/2022 (against medical recommendations). Clinically he feels fairly well. The pain in his left upper chest wall has completely resolved, and his breathing is back to baseline. On follow-up today he does complain of right lower back pain which apparently has been a long-term issue for many years now, unrelated to his cancer. No other areas of pain. MEDICATIONS: Current Outpatient Medications Medication Sig oxyCODONE-acetaminophen (PERCOCET) 5-325 mg tablet Take 1-2 tablets by mouth every 4 hours as needed for pain. ondansetron (ZOFRAN) 8 mg tablet Take 1 tablet by mouth every 8 hours as needed for nausea/vomiting. gabapentin (NEURONTIN) 300 mg capsule Take 1 capsule by mouth twice daily for 30 days. ipratropium-albuterol (DUONEB) 0.5 mg-3 mg(2.5 mg base)/3 mL nebu Inhale 3 mL as instructed every 6 hours as needed for wheezing/shortness of breath. Nebulizer and Compressor For Neb 1 Each as needed. Use as directed. metoprolol tartrate, short acting, (LOPRESSOR) 25 mg tablet Take 50 mg by mouth twice daily. isosorbide mononitrate ER (IMDUR) 30 mg 24 hr tablet Take 30 mg by mouth once daily. cilostazol (PLETAL) 100 mg tablet Take 1 tablet by mouth twice daily. clopidogrel (PLAVIX) 75 mg tablet Take 1 tablet by mouth once daily. aspirin 81 mg chewable tablet Take 81 mg by mouth once daily. atorvastatin (LIPITOR) 40 mg tablet Take 40 mg by mouth once daily. No current facility-administered medications for this visit. ALLERGIES: ALLERGIES No Known Allergies PAST MEDICAL HISTORY: PAST MEDICAL HISTORY Diagnosis Date Carotid artery disease (HCC) bilateral COPD (chronic obstructive pulmonary disease) (HCC) Heart attack (HCC) History of non-ST elevation myocardial infarction (NSTEMI) HTN (hypertension) Hypertension 09/25/2021 Lung cancer (HCC) Malignant neoplasm of lower lobe of left lung (HCC) Peripheral arterial disease (HCC) 2019 R REGISTRATION COORDINATOR stent PAST SURGICAL HISTORY: PAST SURGICAL HISTORY Procedure Laterality Date BACK SURGERY HX 2019 CABG (4) VEIN GRAFTS & ARTERIAL GRAFT(S) 2016 LOWER EXTREMITY FUNNEL SETTER W/WO STENT Right 2019 right common femoral artery stent REMOVAL OF LUNG,LOBECTOMY Left 09/26/2021 VATS left upper lung wedge resection, completion lobectomy, lymph node dissection, application of Progel to staple line, intercostal nerve blocks for cancer FAMILY HISTORY: FAMILY HISTORY Problem Relation Age of Onset Lung Cancer Father Heart Attack Father Coronary Artery Disease Father SOCIAL HISTORY: Social History Tobacco Use Smoking status: Former Packs/day: 2.00 Years: 50.00 Pack years: 100.00 Types: Cigarettes Start date: 1970 Passive exposure: Past Smokeless tobacco: Never Tobacco comments: was smoking on and off fully quit 09/14/21 Vaping Use Vaping Use: Never used Substance Use Topics Alcohol use: Yes Alcohol/week: 30.0 standard drinks Types: 30 Cans of Beer (12oz) per week Comment: 4-9 beers per day Drug use: Never REVIEW OF SYSTEMS: General: No weight loss, malaise or fevers. Positive fatigue. Decreased appetite. Difficulty sleeping. HEENT: Negative for frequent or significant headaches. No changes in hearing or vision, no nose bleeds or other nasal problems. Respiratory: Negative for wheezing. Chronic shortness of breath. Cardiovascular: Negative for chest pain, leg swelling or palpitations. GI: Negative for abdominal discomfort, blood in stools or black stools or change in bowel habits. : No history of dysuria, frequency or incontinence. Musculoskeletal: Negative for joint pain or swelling and muscle pain. Positive back pain. Skin: Negative for rash, lesions and itching. Hematology/Lymphology: Negative for prolonged bleeding, bruising easily or swollen nodes. Neuro: No history of headaches, syncope, paralysis, seizures or tremors. PHYSICAL EXAM: BP 122/70 Pulse 106 Temp 37 C (98.6 F) (Temporal) Resp 16 Ht 168.3 cm (5' 6.26 ) Wt 59.4 kg (131 lb) SpO2 96% BMI 20.98 kg/m ECOG 0 Exam limited to gross visualization where appropriate due to COVID-19. Gen.: This is an age-appropriate patient in no acute distress. Head: Appears atraumatic with no visible lesions. Eyes: Pupils equally round and reactive to light, extraocular muscles are intact. Neck: Supple. Mouth: Masked. Respiratory: Appears to be respiring comfortably. Neurologic: Nonfocal to gross visualization. Alert and oriented 3. Psychiatric: No evidence of inappropriate anxiety or depression. Skin: Visible areas of skin without lesions, wounds or petechiae. Positive rash- mainly involving face and upper back. 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 - Visceral pleural invasion present. - Tumor invades into parietal pleural/chest wall adipose tissue. - Arterial invasion present. - Five hilar/peribronchial lymph nodes, negative for tumor (0/5). - Emphysema with patchy smoking-related interstitial fibrosis. - Margins negative. Molecular markers: RET rearrangement negative, ROS1 negative, BRAF negative, EGFR negative, HER-2 negative, KRAS c34G>T positive, ALK 1 negative, PD-L1 95% LABS: Hemoglobin (g/dL) Date Value 12/17/2022 12.4 07/03/2021 14.2 Hematocrit (%) Date Value 12/17/2022 37.6 07/03/2021 41.8 WBC (k/uL) Date Value 12/17/2022 5.32 07/03/2021 5.83 Platelet Count (k/uL) Date Value 12/17/2022 126 07/03/2021 265 RADIOLOGY/OTHER STUDIES: 10/10/2022 PET scan IMPRESSION: 1. Neck: hypermetabolic focus in the right tonsillar/parapharyngeal region, similar to prior. 2. Chest: Hypermetabolic left subpectoral region mass. Hypermetabolic bilateral lung nodules. Findings concerning for progression of neoplastic process. 3. Abdomen and pelvis: No evidence of FDG avid neoplastic process 4. Skeleton: No hypermetabolic osseous lesions 09/17/2022 CT chest IMPRESSION: 1. Multiple new and enlarging bilateral pulmonary nodules, highly suspicious for progression of disease. 2. No evidence of new bulky intrathoracic lymphadenopathy. 09/17/2022 CT abdomen/pelvis IMPRESSION: 1. No evidence of abdominal or pelvic metastatic disease. 2. Findings compatible with a subcapsular hematoma within the spleen. 3. No evidence of abdominal or pelvic lymphadenopathy. 06/14/2022 CT Chest IMPRESSION: 1. Several indeterminate subcentimeter nodular opacities measuring up to 7 mm, new since 09/25/21. Consider interval follow-up. 2. Other noncalcified subcentimeter nodular opacities measuring less than 5 mm, stable. 3. New trace loculated left pleural effusion, most likely related to postoperative change. 06/11/2022 Chest xray IMPRESSION: A small loculated left pleural effusion is felt to have progressed in size from the prior study, as above. 04/12/2022 Bone scan ([facility]) Degenerative findings. No evidence of metastatic disease. 05/23/2022 MRI Lumbar Spine Impression: Heterogeneous appearance of the vertebral bodies stable from the prior exam, nonspecific. No enhancing mass. Mild to moderate discogenic changes L2-S1 grossly stable. For minimal stenosis at several levels as detailed. 10/31/2021 Brain MRI IMPRESSION: No evidence of an acute intracranial process. No intracranial enhancing lesion to suggest metastasis. 09/25/2021 CT chest IMPRESSION: Increased peripheral left upper lobe mass with adjacent curvilinear scarlike opacity concerning for neoplasm. No other acute thoracic disease. 07/11/2021 CT neck IMPRESSION: ASYMMETRIC HIGH DENSITY WITH ILL-DEFINED MARGINS INVOLVING THE ANTERIOR ASPECT OF THE RIGHT PALATINE TONSIL WITHOUT ASSOCIATED NODULARITY. THIS IS A NONSPECIFIC FINDING AND MAY REFLECT HYPEREMIA FROM TONSILLITIS. THIS CORRESPONDS TO THE LOCATION OF FDG ACTIVITY ON THE PRIOR PET/CT EXAM. INTERVAL FOLLOW-UP IMAGING AND/OR DIRECT VISUALIZATION MAY BE OF BENEFIT TO EXCLUDE UNDERLYING SUBTLE MASS. MODERATE DEGENERATIVE CHANGES INVOLVING THE CERVICAL SPINE. MODERATE ATHEROSCLEROSIS AT THE CAROTID BIFURCATIONS. PARANASAL SINUS MUCOSAL THICKENING/SECRETIONS, DESCRIBED ABOVE. SMALL MILLIMETRIC LYMPH NODES SEEN AT SOME NECK LEVELS, NONE SIGNIFICANTLY ENLARGED BY IMAGING SIZE CRITERIA. IMPRESSION: ASYMMETRIC HIGH DENSITY WITH ILL-DEFINED MARGINS INVOLVING THE ANTERIOR ASPECT OF THE RIGHT PALATINE TONSIL WITHOUT ASSOCIATED NODULARITY. THIS IS A NONSPECIFIC FINDING AND MAY REFLECT HYPEREMIA FROM TONSILLITIS. THIS CORRESPONDS TO THE LOCATION OF FDG ACTIVITY ON THE PRIOR PET/CT EXAM. INTERVAL FOLLOW-UP IMAGING AND/OR DIRECT VISUALIZATION MAY BE OF BENEFIT TO EXCLUDE UNDERLYING SUBTLE MASS. MODERATE DEGENERATIVE CHANGES INVOLVING THE CERVICAL SPINE. MODERATE ATHEROSCLEROSIS AT THE CAROTID BIFURCATIONS. PARANASAL SINUS MUCOSAL THICKENING/SECRETIONS, DESCRIBED ABOVE. SMALL MILLIMETRIC LYMPH NODES SEEN AT SOME NECK LEVELS, NONE SIGNIFICANTLY ENLARGED BY IMAGING SIZE CRITERIA. CT neck 05/28/2021 PET scan IMPRESSION: 1. NECK: * FDG avid soft tissue mass in the right tonsil region could represent tonsillitis versus neoplastic process. Correlate with ENT exam. 2. CHEST: * Enlarging left upper lobe nodule measuring 2.7 x 1.8 cm with max SUV of 4.8 suspicious for neoplasm. No mediastinal or hilar lymphadenopathy. 3. ABDOMEN/PELVIS: * No FDG avid neoplastic process. . 4. EXTREMITIES/SKELETON: * No suspicious FDG avid osseous lesion. ASSESSMENT/PLAN: 1. 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 Status post left upper lobectomy and mediastinal lymphadenectomy 09/26/2021. The primary tumor involved the visceral and parietal pleura with evidence of invasion into the chest wall adipose tissue. Surgical margins negative. Postop it was recommended the patient receive adjuvant chemotherapy with cisplatin plus pemetrexed x4 cycles. He received his first cycle on 10/26/2021, and it was complicated by renal dysfunction. Subsequently the patient's treatment was changed to carboplatin plus pemetrexed. He completed his fourth cycle on 01/22/2022. After completing chemotherapy the patient received adjuvant radiation therapy 03/26/2022 - 05/01/2022 (5400 cGy in 27 fractions). August 2022 the patient developed increasing cough and shortness of breath. CT scans 09/17/2022 revealed multiple bilateral pulmonary nodules, suspicious for metastases. PET scan 10/10/2022 revealed a hypermetabolic mass in the left subpectoral region plus bilateral pulmonary nodules consistent with metastatic disease. Biopsy was recommended but the patient declined. Subsequently it was elected to start systemic therapy with pembrolizumab, with plans to give 200 mg IV every 3 weeks. Pembrolizumab cycle 1 was given 10/21/2022. Palliative radiation therapy to the left upper chest wall was given 10/28/2022 - 11/12/2022. The patient was seen on 11/11/2022 for pembrolizumab cycle 2, but treatment postponed due to elevated LFTs. Treatment with Pembrolizumab cycle 2 was resumed on 12/06/2022. On follow-up today the patient is clinically stable, but LFTs once again are markedly elevated due to his usage of fenbendazole (+/- other supplements). We will not be able to treat today. Repeat labs in 10 days. Return in 3 weeks, and if stable he will then continue treatment with pembrolizumab. 2. Centrilobular emphysema (HCC) - ICD9: 492.8, ICD10: J43.2 Long history of tobacco abuse, quit September 2021. The patient has chronic shortness of breath and cough secondary to COPD. Currently on antibiotics for suspected bronchitis. 3. Coronary artery disease Status post AMI 2015. Status post CABG x 4 in [place] 2015. Currently stable. Continue management per PCP/cardiology. 4. Peripheral vascular disease Status post balloon angioplasty right lower leg 2019. On long-term antiplatelet agents with Plavix and Pletal. Continue management per PCP/vascular surgery. 5. Abnormal right tonsil on PET scan (05/28/2021) and neck CT (07/11/2021). Radiographic abnormalities identified on baseline PET scan and neck CT. The patient was seen by [facility] on 07/26/2021, and clinical evaluation most consistent with inflammatory/post-infectious findings. No suspicion for malignancy. The patient apparently chews tobacco, and was advised to discontinue. He will follow-up with ENT as indicated. 6. Cancer related pain Severe pain left upper chest wall since August 2022. Currently on Percocet and gabapentin with moderate relief. Will consider referral to [facility] palliative medicine if symptoms persist. 7. Abnormal LFTs Labs from 11/11/2022 revealed significant elevation of the SGOT and SGPT, most likely transaminitis secondary to OTC supplements (fenbendazole +/- curcumin). After discontinuing these supplements the patient's LFTs normalized, but unfortunately he resumed taking them again on 12/06/2022. Today the patient was strictly told to permanently discontinue the supplements or he will not be able to receive additional treatment for his cancer. Pito Grigsby MD documented in this encounter [facility] 11-25-2022 Nurse Note Clinical questionnaires incomplete due to not loading. Ebony Marcelo Ma documented in this encounter [facility] 11-25-2022 History of Present illness Narrative PATIENT NAME: Pedro Gu DATE: 11/25/2022 PRIMARY CARE PHYSICIAN: Dr. Christina Azul OTHER PHYSICIANS: Dr. Verito Whelan, Dr. Marianne Fields, Dr. Limon Portions of this encounter note have been copied from the note from 11/18/2022 and has been updated where appropriate, and reflect my current medical decision making from today. CC: This is a 67 year old male with recently diagnosed metastatic lung cancer, seen for scheduled follow-up and treatment. INTERIM HISTORY: Pedro Gu returns for follow-up and to possibly resume treatment. His treatment has been on hold due to elevated LFTs. He states that he is not eating and sleeping well. He is feeling depressed. He took something from his son to help him sleep and it knocked him for a loop. He has been working on his car installing new brakes and developed a wrench in his back. He states the pain is in his muscle and bone. He has been walking 2 miles a day. He is now only able to walk a half a mile. He is walking to try to work out the pain. He denies skin rashes. He has underlining COPD and states his breathing is normal for him. He has a chronic cough. He denies fevers, chills, night sweats and signs/symptoms of infection. No bleeding or abnormal bruising. No diarrhea. No GI complaints. He remains off both the fenbendazole and her curcumin. Overall he is improving and wishes to proceed with treatment as planned. MEDICATIONS: Current Outpatient Medications Medication Sig oxyCODONE-acetaminophen (PERCOCET) 5-325 mg tablet Take 1-2 tablets by mouth every 4 hours as needed for pain. ondansetron (ZOFRAN) 8 mg tablet Take 1 tablet by mouth every 8 hours as needed for nausea/vomiting. gabapentin (NEURONTIN) 300 mg capsule Take 1 capsule by mouth twice daily for 30 days. ipratropium-albuterol (DUONEB) 0.5 mg-3 mg(2.5 mg base)/3 mL nebu Inhale 3 mL as instructed every 6 hours as needed for wheezing/shortness of breath. Nebulizer and Compressor For Neb 1 Each as needed. Use as directed. metoprolol tartrate, short acting, (LOPRESSOR) 25 mg tablet Take 50 mg by mouth twice daily. isosorbide mononitrate ER (IMDUR) 30 mg 24 hr tablet Take 30 mg by mouth once daily. cilostazol (PLETAL) 100 mg tablet Take 1 tablet by mouth twice daily. clopidogrel (PLAVIX) 75 mg tablet Take 1 tablet by mouth once daily. aspirin 81 mg chewable tablet Take 81 mg by mouth once daily. atorvastatin (LIPITOR) 40 mg tablet Take 40 mg by mouth once daily. No current facility-administered medications for this visit. ALLERGIES: ALLERGIES No Known Allergies PAST MEDICAL HISTORY: PAST MEDICAL HISTORY Diagnosis Date Carotid artery disease (HCC) bilateral COPD (chronic obstructive pulmonary disease) (HCC) Heart attack (HCC) History of non-ST elevation myocardial infarction (NSTEMI) HTN (hypertension) Hypertension 09/25/2021 Lung cancer (HCC) Malignant neoplasm of lower lobe of left lung (HCC) Peripheral arterial disease (HCC) 2019 R REGISTRATION COORDINATOR stent PAST SURGICAL HISTORY: PAST SURGICAL HISTORY Procedure Laterality Date BACK SURGERY HX 2019 CABG (4) VEIN GRAFTS & ARTERIAL GRAFT(S) 2016 LOWER EXTREMITY FUNNEL SETTER W/WO STENT Right 2019 right common femoral artery stent REMOVAL OF LUNG,LOBECTOMY Left 09/26/2021 VATS left upper lung wedge resection, completion lobectomy, lymph node dissection, application of Progel to staple line, intercostal nerve blocks for cancer FAMILY HISTORY: FAMILY HISTORY Problem Relation Age of Onset Lung Cancer Father Heart Attack Father Coronary Artery Disease Father SOCIAL HISTORY: Social History Tobacco Use Smoking status: Former Packs/day: 2.00 Years: 50.00 Pack years: 100.00 Types: Cigarettes Start date: 1970 Passive exposure: Past Smokeless tobacco: Never Tobacco comments: was smoking on and off fully quit 09/14/21 Vaping Use Vaping Use: Never used Substance Use Topics Alcohol use: Yes Alcohol/week: 30.0 standard drinks Types: 30 Cans of Beer (12oz) per week Comment: 4-9 beers per day Drug use: Never REVIEW OF SYSTEMS: General: No weight loss, malaise or fevers. Positive fatigue. Decreased appetite. Difficulty sleeping. HEENT: Negative for frequent or significant headaches. No changes in hearing or vision, no nose bleeds or other nasal problems. Respiratory: Negative for wheezing. Chronic shortness of breath. Positive cough. Cardiovascular: Negative for chest pain, leg swelling or palpitations. GI: Negative for abdominal discomfort, blood in stools or black stools or change in bowel habits. : No history of dysuria, frequency or incontinence. Musculoskeletal: Negative for joint pain or swelling and muscle pain. Positive back pain. Skin: Negative for rash, lesions and itching. Hematology/Lymphology: Negative for prolonged bleeding, bruising easily or swollen nodes. Neuro: No history of headaches, syncope, paralysis, seizures or tremors. PHYSICAL EXAM: BP 108/69 Pulse 97 Temp 36.4 C (97.5 F) (Temporal) Resp 16 Ht 168.3 cm (5' 6.26 ) Wt 59.1 kg (130 lb 6.4 oz) SpO2 99% BMI 20.88 kg/m ECOG 0 Exam limited to gross visualization where appropriate due to COVID-19. Gen.: This is an age-appropriate patient in no acute distress. Head: Appears atraumatic with no visible lesions. Eyes: Pupils equally round and reactive to light, extraocular muscles are intact. Neck: Supple. Mouth: Masked. Respiratory: Appears to be respiring comfortably. Neurologic: Nonfocal to gross visualization. Alert and oriented 3. Psychiatric: No evidence of inappropriate anxiety or depression. Skin: Visible areas of skin without lesions, wounds or petechiae. Positive rash- mainly involving face and upper back. 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 - Visceral pleural invasion present. - Tumor invades into parietal pleural/chest wall adipose tissue. - Arterial invasion present. - Five hilar/peribronchial lymph nodes, negative for tumor (0/5). - Emphysema with patchy smoking-related interstitial fibrosis. - Margins negative. Molecular markers: RET rearrangement negative, ROS1 negative, BRAF negative, EGFR negative, HER-2 negative, KRAS c34G>T positive, ALK 1 negative, PD-L1 95% LABS: Hemoglobin (g/dL) Date Value 11/25/2022 11.3 07/03/2021 14.2 Hematocrit (%) Date Value 11/25/2022 33.8 07/03/2021 41.8 WBC (k/uL) Date Value 11/25/2022 5.11 07/03/2021 5.83 Platelet Count (k/uL) Date Value 11/25/2022 226 07/03/2021 265 RADIOLOGY/OTHER STUDIES: 10/10/2022 PET scan IMPRESSION: 1. Neck: hypermetabolic focus in the right tonsillar/parapharyngeal region, similar to prior. 2. Chest: Hypermetabolic left subpectoral region mass. Hypermetabolic bilateral lung nodules. Findings concerning for progression of neoplastic process. 3. Abdomen and pelvis: No evidence of FDG avid neoplastic process 4. Skeleton: No hypermetabolic osseous lesions 09/17/2022 CT chest IMPRESSION: 1. Multiple new and enlarging bilateral pulmonary nodules, highly suspicious for progression of disease. 2. No evidence of new bulky intrathoracic lymphadenopathy. 09/17/2022 CT abdomen/pelvis IMPRESSION: 1. No evidence of abdominal or pelvic metastatic disease. 2. Findings compatible with a subcapsular hematoma within the spleen. 3. No evidence of abdominal or pelvic lymphadenopathy. 06/14/2022 CT Chest IMPRESSION: 1. Several indeterminate subcentimeter nodular opacities measuring up to 7 mm, new since 09/25/21. Consider interval follow-up. 2. Other noncalcified subcentimeter nodular opacities measuring less than 5 mm, stable. 3. New trace loculated left pleural effusion, most likely related to postoperative change. 06/11/2022 Chest xray IMPRESSION: A small loculated left pleural effusion is felt to have progressed in size from the prior study, as above. 04/12/2022 Bone scan ([facility]) Degenerative findings. No evidence of metastatic disease. 05/23/2022 MRI Lumbar Spine Impression: Heterogeneous appearance of the vertebral bodies stable from the prior exam, nonspecific. No enhancing mass. Mild to moderate discogenic changes L2-S1 grossly stable. For minimal stenosis at several levels as detailed. 10/31/2021 Brain MRI IMPRESSION: No evidence of an acute intracranial process. No intracranial enhancing lesion to suggest metastasis. 09/25/2021 CT chest IMPRESSION: Increased peripheral left upper lobe mass with adjacent curvilinear scarlike opacity concerning for neoplasm. No other acute thoracic disease. 07/11/2021 CT neck IMPRESSION: ASYMMETRIC HIGH DENSITY WITH ILL-DEFINED MARGINS INVOLVING THE ANTERIOR ASPECT OF THE RIGHT PALATINE TONSIL WITHOUT ASSOCIATED NODULARITY. THIS IS A NONSPECIFIC FINDING AND MAY REFLECT HYPEREMIA FROM TONSILLITIS. THIS CORRESPONDS TO THE LOCATION OF FDG ACTIVITY ON THE PRIOR PET/CT EXAM. INTERVAL FOLLOW-UP IMAGING AND/OR DIRECT VISUALIZATION MAY BE OF BENEFIT TO EXCLUDE UNDERLYING SUBTLE MASS. MODERATE DEGENERATIVE CHANGES INVOLVING THE CERVICAL SPINE. MODERATE ATHEROSCLEROSIS AT THE CAROTID BIFURCATIONS. PARANASAL SINUS MUCOSAL THICKENING/SECRETIONS, DESCRIBED ABOVE. SMALL MILLIMETRIC LYMPH NODES SEEN AT SOME NECK LEVELS, NONE SIGNIFICANTLY ENLARGED BY IMAGING SIZE CRITERIA. IMPRESSION: ASYMMETRIC HIGH DENSITY WITH ILL-DEFINED MARGINS INVOLVING THE ANTERIOR ASPECT OF THE RIGHT PALATINE TONSIL WITHOUT ASSOCIATED NODULARITY. THIS IS A NONSPECIFIC FINDING AND MAY REFLECT HYPEREMIA FROM TONSILLITIS. THIS CORRESPONDS TO THE LOCATION OF FDG ACTIVITY ON THE PRIOR PET/CT EXAM. INTERVAL FOLLOW-UP IMAGING AND/OR DIRECT VISUALIZATION MAY BE OF BENEFIT TO EXCLUDE UNDERLYING SUBTLE MASS. MODERATE DEGENERATIVE CHANGES INVOLVING THE CERVICAL SPINE. MODERATE ATHEROSCLEROSIS AT THE CAROTID BIFURCATIONS. PARANASAL SINUS MUCOSAL THICKENING/SECRETIONS, DESCRIBED ABOVE. SMALL MILLIMETRIC LYMPH NODES SEEN AT SOME NECK LEVELS, NONE SIGNIFICANTLY ENLARGED BY IMAGING SIZE CRITERIA. CT neck 05/28/2021 PET scan IMPRESSION: 1. NECK: * FDG avid soft tissue mass in the right tonsil region could represent tonsillitis versus neoplastic process. Correlate with ENT exam. 2. CHEST: * Enlarging left upper lobe nodule measuring 2.7 x 1.8 cm with max SUV of 4.8 suspicious for neoplasm. No mediastinal or hilar lymphadenopathy. 3. ABDOMEN/PELVIS: * No FDG avid neoplastic process. . 4. EXTREMITIES/SKELETON: * No suspicious FDG avid osseous lesion. ASSESSMENT/PLAN: 1. 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 Status post left upper lobectomy and mediastinal lymphadenectomy 09/26/2021. The primary tumor involved the visceral and parietal pleura with evidence of invasion into the chest wall adipose tissue. Surgical margins negative. Postop it was recommended the patient receive adjuvant chemotherapy with cisplatin plus pemetrexed x4 cycles. He received his first cycle on 10/26/2021, and it was complicated by renal dysfunction. Subsequently the patient's treatment was changed to carboplatin plus pemetrexed. He completed his fourth cycle on 01/22/2022. After completing chemotherapy the patient received adjuvant radiation therapy 03/26/2022 - 05/01/2022 (5400 cGy in 27 fractions). August 2022 the patient developed increasing cough and shortness of breath. CT scans 09/17/2022 revealed multiple bilateral pulmonary nodules, suspicious for metastases. PET scan 10/10/2022 revealed a hypermetabolic mass in the left subpectoral region plus bilateral pulmonary nodules consistent with metastatic disease. Biopsy was recommended but the patient declined. Subsequently it was elected to start systemic therapy with pembrolizumab, with plans to give 200 mg IV every 3 weeks. Pembrolizumab cycle 1 was given 10/21/2022. Palliative radiation therapy to the left upper chest wall was given 10/28/2022 - 11/12/2022. The patient was seen on 11/11/2022 for pembrolizumab cycle 2, but treatment postponed due to elevated LFTs. Currently the patient is clinically stable. His LFTs remain abnormal but improving. We will resume treatment with pembrolizumab today. We will check a CBC and CMP in 7-10 days. We will see him back in 3 weeks for follow up and continued treatment. 2. Centrilobular emphysema (HCC) - ICD9: 492.8, ICD10: J43.2 Long history of tobacco abuse, quit September 2021. The patient has chronic shortness of breath and cough secondary to COPD. Currently on antibiotics for suspected bronchitis. 3. Coronary artery disease Status post AMI 2015. Status post CABG x 4 in [place] 2015. Currently stable. Continue management per PCP/cardiology. 4. Peripheral vascular disease Status post balloon angioplasty right lower leg 2019. On long-term antiplatelet agents with Plavix and Pletal. Continue management per PCP/vascular surgery. 5. Abnormal right tonsil on PET scan (05/28/2021) and neck CT (07/11/2021). Radiographic abnormalities identified on baseline PET scan and neck CT. The patient was seen by [facility] ENT on 07/26/2021, and clinical evaluation most consistent with inflammatory/post-infectious findings. No suspicion for malignancy. The patient apparently chews tobacco, and was advised to discontinue. He will follow-up with ENT as indicated. 6. Cancer related pain Severe pain left upper chest wall since August 2022. Currently on Percocet and gabapentin with moderate relief. Will consider referral to [facility] palliative medicine if symptoms persist. 7. Abnormal LFTs Labs from 11/11/2022 revealed significant elevation of the SGOT and SGPT, most likely transaminitis secondary to immunotherapy versus supplements (fenbendazole and curcumin). The patient was advised to discontinue all supplements, and avoid other agents which might contribute to liver dysfunction. Repeat labs and return visit in 1 week. Brent Miller APRN.RONAL I spent a total of 30 minutes on the date of the service which included preparing to see the patient, [id number] patient care, completing clinical documentation, obtaining and/or reviewing separately obtained history, performing a medically appropriate examination, counseling and educating the patient/family/caregiver, ordering medications, tests, or procedures, independently interpreting results (not separately reported), and communicating results to the patient/family/caregiver. documented in this encounter [facility] 11-21-[address] lab orders for appointment on 11/25/22. Ebony Marcelo Ma documented in this encounter [facility] 11-20-2022 Miscellaneous Notes Thank you for the update. I agree his depression can be playing a large role on his appetite. His weight appears stable over the past 1-2 months, but I am happy to meet with him again if patient desires. Thanks, Dominique Murphy, MS, RDN, LD Most likely his depression and poor appetite are related to his disease rather than treatment. Best that we discuss options in person when he comes in for his next appointment. Pt here for post radiation follow up. He reports continued decreased appetite and feels depressed. He states he thinks that with all of the treatments not doing what they're supposed to, that it is causing him to feel this way. He tries to eat small frequent meals, but can only take a few bites of anything. He drinks 2-3 ensure a day and has met with hip hop dance instructor before. We discussed the possibility of adding an antidepressant. Pt is concerned about his LFTs and he does not want to take anything that could effect those. Is there something you can prescribe that may increase appetite & help depression while not altering his liver function? Pt uses [facility] in [place] if you want to send something. I will also copy hip hop dance instructor and social work to be aware of changes/issues with patient. Merissa Fam RN documented in this encounter [facility] 11-20-2022 History of Present illness Narrative Radiation Oncology - Follow Up Note PATIENT NAME: Pedro Gu PATIENT DIAGNOSIS: Lung cancer, left upper lobe, pleomorphic carcinoma, stage IIb [id number], stage IIB AJCC 8th edition (chest wall invasion), PD-L1 95%, KRAS G12C mutation present RADIATION SUMMARY: Course 1: DATES OF TREATMENT: 03/26/2022- 05/01/2022 AREA TREATED: left lung DELIVERED DOSE: Area: left lung 5400 cGy in 27 fractions, 2 Arcs, IMRT (VMAT), 6MV/ with daily CBCT TOTAL: 5400 cGy in 27 fractions ELAPSED TIME: 36 days. Course 2: INTERVAL HISTORY: Left chest wall and shoulder pain improved. ALLERGIES No Known Allergies MEDICATIONS: oxyCODONE-acetaminophen (PERCOCET) 5-325 mg tablet Take 1-2 tablets by mouth every 4 hours as needed for pain. ondansetron (ZOFRAN) 8 mg tablet Take 1 tablet by mouth every 8 hours as needed for nausea/vomiting. gabapentin (NEURONTIN) 300 mg capsule Take 1 capsule by mouth twice daily for 30 days. ipratropium-albuterol (DUONEB) 0.5 mg-3 mg(2.5 mg base)/3 mL nebu Inhale 3 mL as instructed every 6 hours as needed for wheezing/shortness of breath. Nebulizer and Compressor For Neb 1 Each as needed. Use as directed. metoprolol tartrate, short acting, (LOPRESSOR) 25 mg tablet Take 50 mg by mouth twice daily. isosorbide mononitrate ER (IMDUR) 30 mg 24 hr tablet Take 30 mg by mouth once daily. cilostazol (PLETAL) 100 mg tablet Take 1 tablet by mouth twice daily. clopidogrel (PLAVIX) 75 mg tablet Take 1 tablet by mouth once daily. aspirin 81 mg chewable tablet Take 81 mg by mouth once daily. atorvastatin (LIPITOR) 40 mg tablet Take 40 mg by mouth once daily. REVIEW OF SYSTEMS: GENERAL: SEE HPI. HEENT: Negative for sudden vision or hearing changes. NECK: Negative for masses in the neck. RESPIRATORY: See HPI CARDIAC: Negative for chest pain, palpitations, murmurs, or syncopal episodes. GI: Negative for nausea, vomiting, diarrhea, constipation, blood per rectum, or melena. : Negative for dysuria, hematuria, urgency, frequency or incontinence. MUSCULOSKELETAL: See HPI NEURO: Negative for dizziness, headache, weakness or numbness. HEMATOLOGIC: Negative for bleeding or easy bruising. SKIN: Negative for rashes or other skin changes. PHYSICAL EXAM: VS: BP 137/73 Pulse 87 Temp 36.5 C (97.7 F) Resp 18 Wt 59.2 kg (130 lb 9.6 oz) SpO2 97% BMI 20.91 kg/m KPS: 100 General Appearance: Alert and oriented. No acute distress. HEENT: NCAT. Sclera anicteric. PERRL. EOMI. Neck: Normal ROM. Chest: No respiratory distress. Lungs clear to auscultation bilaterally. Heart: Regular rate and rhythm. Abdomen: Soft. Nontender. Nondistended. Musculoskeletal: No edema. Normal ROM in extremities. No bone or spine tenderness. Neuro: Speech fluent. Gait normal. No focal deficits. Skin: No rashes noted Lymphatics: No palpable lymphadenopathy. ASSESSMENT/PLAN: Lung cancer, left upper lobe, pleomorphic carcinoma, stage IIb [id number], stage IIB AJCC 8th edition (chest wall invasion), PD-L1 95%, KRAS G12C mutation present Doing fairly well, with good intial response to palliative radiation. He continues pembrolizumab thorkailash Grigsby. Plan to see back in 4-6 weeks. Signed by: Jyoti Limon MD cc: Christina Azul [address] [place] [address] documented in this encounter [facility] 11-18-2022 History of Present illness Narrative PATIENT NAME: Pedro Gu DATE: 11/18/2022 PRIMARY CARE PHYSICIAN: Dr. Christina Azul OTHER PHYSICIANS: Dr. Verito Whelan, Dr. Marianne Fields, Dr. Limon Portions of this encounter note have been copied from the note from 11/11/2022 and has been updated where appropriate, and reflect my current medical decision making from today. CC: This is a 67 year old male with recently diagnosed metastatic lung cancer, seen for scheduled follow-up and treatment. INTERIM HISTORY: At the patient's last visit here labs revealed significantly abnormal LFTs, therefore cycle 2 pembrolizumab was postponed. He subsequently finished his planned radiation on 11/12/2022, and tolerated it well. Since then his left upper chest pain has improved significantly. Apparently the patient had been on high-dose fenbendazole as well as curcumin since his metastatic disease was diagnosed. He discontinued fenbendazole when his LFT abnormality was discovered, but has remained on curcumin. MEDICATIONS: Current Outpatient Medications Medication Sig oxyCODONE-acetaminophen (PERCOCET) 5-325 mg tablet Take 1-2 tablets by mouth every 4 hours as needed for pain. ondansetron (ZOFRAN) 8 mg tablet Take 1 tablet by mouth every 8 hours as needed for nausea/vomiting. gabapentin (NEURONTIN) 300 mg capsule Take 1 capsule by mouth twice daily for 30 days. ipratropium-albuterol (DUONEB) 0.5 mg-3 mg(2.5 mg base)/3 mL nebu Inhale 3 mL as instructed every 6 hours as needed for wheezing/shortness of breath. Nebulizer and Compressor For Neb 1 Each as needed. Use as directed. metoprolol tartrate, short acting, (LOPRESSOR) 25 mg tablet Take 50 mg by mouth twice daily. isosorbide mononitrate ER (IMDUR) 30 mg 24 hr tablet Take 30 mg by mouth once daily. cilostazol (PLETAL) 100 mg tablet Take 1 tablet by mouth twice daily. clopidogrel (PLAVIX) 75 mg tablet Take 1 tablet by mouth once daily. aspirin 81 mg chewable tablet Take 81 mg by mouth once daily. atorvastatin (LIPITOR) 40 mg tablet Take 40 mg by mouth once daily. No current facility-administered medications for this visit. ALLERGIES: ALLERGIES No Known Allergies PAST MEDICAL HISTORY: PAST MEDICAL HISTORY Diagnosis Date Carotid artery disease (HCC) bilateral COPD (chronic obstructive pulmonary disease) (HCC) Heart attack (HCC) History of non-ST elevation myocardial infarction (NSTEMI) HTN (hypertension) Hypertension 09/25/2021 Lung cancer (HCC) Malignant neoplasm of lower lobe of left lung (HCC) Peripheral arterial disease (HCC) 2019 R REGISTRATION COORDINATOR stent PAST SURGICAL HISTORY: PAST SURGICAL HISTORY Procedure Laterality Date BACK SURGERY HX 2019 CABG (4) VEIN GRAFTS & ARTERIAL GRAFT(S) 2016 LOWER EXTREMITY FUNNEL SETTER W/WO STENT Right 2019 right common femoral artery stent REMOVAL OF LUNG,LOBECTOMY Left 09/26/2021 VATS left upper lung wedge resection, completion lobectomy, lymph node dissection, application of Progel to staple line, intercostal nerve blocks for cancer FAMILY HISTORY: FAMILY HISTORY Problem Relation Age of Onset Lung Cancer Father Heart Attack Father Coronary Artery Disease Father SOCIAL HISTORY: Social History Tobacco Use Smoking status: Former Packs/day: 2.00 Years: 50.00 Pack years: 100.00 Types: Cigarettes Start date: 1970 Passive exposure: Past Smokeless tobacco: Never Tobacco comments: was smoking on and off fully quit 09/14/21 Vaping Use Vaping Use: Never used Substance Use Topics Alcohol use: Yes Alcohol/week: 30.0 standard drinks Types: 30 Cans of Beer (12oz) per week Comment: 4-9 beers per day Drug use: Never REVIEW OF SYSTEMS: General: No weight loss, malaise or fevers. Positive fatigue. HEENT: Negative for frequent or significant headaches. No changes in hearing or vision, no nose bleeds or other nasal problems Respiratory: Negative for wheezing. Chronic shortness of breath. Positive cough. Cardiovascular: Negative for chest pain, leg swelling or palpitations. GI: Negative for abdominal discomfort, blood in stools or black stools or change in bowel habits. Positive constipation. : No history of dysuria, frequency or incontinence. Musculoskeletal: Negative for joint pain or swelling, back pain and muscle pain. Skin: Negative for lesions and itching. Positive rash- Improving. Hematology/Lymphology: Negative for prolonged bleeding, bruising easily or swollen nodes. Neuro: No history of headaches, syncope, paralysis, seizures or tremors. PHYSICAL EXAM: BP 124/70 Pulse 84 Temp 36.2 C (97.2 F) (Temporal) Resp 16 Ht 168.3 cm (5' 6.26 ) Wt 60.3 kg (133 lb) SpO2 100% BMI 21.30 kg/m ECOG 0 Exam limited to gross visualization where appropriate due to COVID-19. Gen.: This is an age-appropriate patient in no acute distress. Head: Appears atraumatic with no visible lesions. Eyes: Pupils equally round and reactive to light, extraocular muscles are intact. Neck: Supple. Mouth: Masked. Respiratory: Appears to be respiring comfortably. Neurologic: Nonfocal to gross visualization. Alert and oriented 3. Psychiatric: No evidence of inappropriate anxiety or depression. Skin: Visible areas of skin without lesions, wounds or petechiae. Positive rash- mainly involving face and upper back. 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 - Visceral pleural invasion present. - Tumor invades into parietal pleural/chest wall adipose tissue. - Arterial invasion present. - Five hilar/peribronchial lymph nodes, negative for tumor (0/5). - Emphysema with patchy smoking-related interstitial fibrosis. - Margins negative. Molecular markers: RET rearrangement negative, ROS1 negative, BRAF negative, EGFR negative, HER-2 negative, KRAS c34G>T positive, ALK 1 negative, PD-L1 95% LABS: Hemoglobin (g/dL) Date Value 11/11/2022 11.2 07/03/2021 14.2 Hematocrit (%) Date Value 11/11/2022 33.2 07/03/2021 41.8 WBC (k/uL) Date Value 11/11/2022 6.01 07/03/2021 5.83 Platelet Count (k/uL) Date Value 11/11/2022 225 07/03/2021 265 RADIOLOGY/OTHER STUDIES: 10/10/2022 PET scan IMPRESSION: 1. Neck: hypermetabolic focus in the right tonsillar/parapharyngeal region, similar to prior. 2. Chest: Hypermetabolic left subpectoral region mass. Hypermetabolic bilateral lung nodules. Findings concerning for progression of neoplastic process. 3. Abdomen and pelvis: No evidence of FDG avid neoplastic process 4. Skeleton: No hypermetabolic osseous lesions 09/17/2022 CT chest IMPRESSION: 1. Multiple new and enlarging bilateral pulmonary nodules, highly suspicious for progression of disease. 2. No evidence of new bulky intrathoracic lymphadenopathy. 09/17/2022 CT abdomen/pelvis IMPRESSION: 1. No evidence of abdominal or pelvic metastatic disease. 2. Findings compatible with a subcapsular hematoma within the spleen. 3. No evidence of abdominal or pelvic lymphadenopathy. 06/14/2022 CT Chest IMPRESSION: 1. Several indeterminate subcentimeter nodular opacities measuring up to 7 mm, new since 09/25/21. Consider interval follow-up. 2. Other noncalcified subcentimeter nodular opacities measuring less than 5 mm, stable. 3. New trace loculated left pleural effusion, most likely related to postoperative change. 06/11/2022 Chest xray IMPRESSION: A small loculated left pleural effusion is felt to have progressed in size from the prior study, as above. 04/12/2022 Bone scan ([facility]) Degenerative findings. No evidence of metastatic disease. 05/23/2022 MRI Lumbar Spine Impression: Heterogeneous appearance of the vertebral bodies stable from the prior exam, nonspecific. No enhancing mass. Mild to moderate discogenic changes L2-S1 grossly stable. For minimal stenosis at several levels as detailed. 10/31/2021 Brain MRI IMPRESSION: No evidence of an acute intracranial process. No intracranial enhancing lesion to suggest metastasis. 09/25/2021 CT chest IMPRESSION: Increased peripheral left upper lobe mass with adjacent curvilinear scarlike opacity concerning for neoplasm. No other acute thoracic disease. 07/11/2021 CT neck IMPRESSION: ASYMMETRIC HIGH DENSITY WITH ILL-DEFINED MARGINS INVOLVING THE ANTERIOR ASPECT OF THE RIGHT PALATINE TONSIL WITHOUT ASSOCIATED NODULARITY. THIS IS A NONSPECIFIC FINDING AND MAY REFLECT HYPEREMIA FROM TONSILLITIS. THIS CORRESPONDS TO THE LOCATION OF FDG ACTIVITY ON THE PRIOR PET/CT EXAM. INTERVAL FOLLOW-UP IMAGING AND/OR DIRECT VISUALIZATION MAY BE OF BENEFIT TO EXCLUDE UNDERLYING SUBTLE MASS. MODERATE DEGENERATIVE CHANGES INVOLVING THE CERVICAL SPINE. MODERATE ATHEROSCLEROSIS AT THE CAROTID BIFURCATIONS. PARANASAL SINUS MUCOSAL THICKENING/SECRETIONS, DESCRIBED ABOVE. SMALL MILLIMETRIC LYMPH NODES SEEN AT SOME NECK LEVELS, NONE SIGNIFICANTLY ENLARGED BY IMAGING SIZE CRITERIA. IMPRESSION: ASYMMETRIC HIGH DENSITY WITH ILL-DEFINED MARGINS INVOLVING THE ANTERIOR ASPECT OF THE RIGHT PALATINE TONSIL WITHOUT ASSOCIATED NODULARITY. THIS IS A NONSPECIFIC FINDING AND MAY REFLECT HYPEREMIA FROM TONSILLITIS. THIS CORRESPONDS TO THE LOCATION OF FDG ACTIVITY ON THE PRIOR PET/CT EXAM. INTERVAL FOLLOW-UP IMAGING AND/OR DIRECT VISUALIZATION MAY BE OF BENEFIT TO EXCLUDE UNDERLYING SUBTLE MASS. MODERATE DEGENERATIVE CHANGES INVOLVING THE CERVICAL SPINE. MODERATE ATHEROSCLEROSIS AT THE CAROTID BIFURCATIONS. PARANASAL SINUS MUCOSAL THICKENING/SECRETIONS, DESCRIBED ABOVE. SMALL MILLIMETRIC LYMPH NODES SEEN AT SOME NECK LEVELS, NONE SIGNIFICANTLY ENLARGED BY IMAGING SIZE CRITERIA. CT neck 05/28/2021 PET scan IMPRESSION: 1. NECK: * FDG avid soft tissue mass in the right tonsil region could represent tonsillitis versus neoplastic process. Correlate with ENT exam. 2. CHEST: * Enlarging left upper lobe nodule measuring 2.7 x 1.8 cm with max SUV of 4.8 suspicious for neoplasm. No mediastinal or hilar lymphadenopathy. 3. ABDOMEN/PELVIS: * No FDG avid neoplastic process. . 4. EXTREMITIES/SKELETON: * No suspicious FDG avid osseous lesion. ASSESSMENT/PLAN: 1. 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 Status post left upper lobectomy and mediastinal lymphadenectomy 09/26/2021. The primary tumor involved the visceral and parietal pleura with evidence of invasion into the chest wall adipose tissue. Surgical margins negative. Postop it was recommended the patient receive adjuvant chemotherapy with cisplatin plus pemetrexed x4 cycles. He received his first cycle on 10/26/2021, and it was complicated by renal dysfunction. Subsequently the patient's treatment was changed to carboplatin plus pemetrexed. He completed his fourth cycle on 01/22/2022. After completing chemotherapy the patient received adjuvant radiation therapy 03/26/2022 - 05/01/2022 (5400 cGy in 27 fractions). August 2022 the patient developed increasing cough and shortness of breath. CT scans 09/17/2022 revealed multiple bilateral pulmonary nodules, suspicious for metastases. PET scan 10/10/2022 revealed a hypermetabolic mass in the left subpectoral region plus bilateral pulmonary nodules consistent with metastatic disease. Biopsy was recommended but the patient declined. Subsequently it was elected to start systemic therapy with pembrolizumab, with plans to give 200 mg IV every 3 weeks. Pembrolizumab cycle 1 was given 10/21/2022. Palliative radiation therapy to the left upper chest wall was given 10/28/2022 - 11/12/2022. The patient was seen on 11/11/2022 for pembrolizumab cycle 2, but treatment postponed due to elevated LFTs. Currently the patient is clinically stable, but his LFTs remain abnormal. We will continue to hold pembrolizumab. Return in 1 week, and if labs improved will then proceed with pembrolizumab cycle 2. 2. Centrilobular emphysema (HCC) - ICD9: 492.8, ICD10: J43.2 Long history of tobacco abuse, quit September 2021. The patient has chronic shortness of breath and cough secondary to COPD. Currently on antibiotics for suspected bronchitis. 3. Coronary artery disease Status post AMI 2015. Status post CABG x 4 in [place] 2015. Currently stable. Continue management per PCP/cardiology. 4. Peripheral vascular disease Status post balloon angioplasty right lower leg 2019. On long-term antiplatelet agents with Plavix and Pletal. Continue management per PCP/vascular surgery. 5. Abnormal right tonsil on PET scan (05/28/2021) and neck CT (07/11/2021). Radiographic abnormalities identified on baseline PET scan and neck CT. The patient was seen by [facility] ENT on 07/26/2021, and clinical evaluation most consistent with inflammatory/post-infectious findings. No suspicion for malignancy. The patient apparently chews tobacco, and was advised to discontinue. He will follow-up with ENT as indicated. 6. Cancer related pain Severe pain left upper chest wall since August 2022. Currently on Percocet and gabapentin with moderate relief. Will consider referral to [facility] palliative medicine if symptoms persist. 7. Abnormal LFTs Labs from 11/11/2022 revealed significant elevation of the SGOT and SGPT, most likely transaminitis secondary to immunotherapy versus supplements (fenbendazole and curcumin). The patient was advised to discontinue all supplements, and avoid other agents which might contribute to liver dysfunction. Repeat labs and return visit in 1 week. Pito Grigsby MD documented in this encounter [facility] 11-14-2022 Miscellaneous Notes Patient has an [facility]TV appointment on 11/18. Please place lab orders. Yani Singer documented in this encounter [facility] 11-12-2022 History of Present illness Narrative [facility] Radiation Oncology Department RADIATION ONCOLOGY - COMPLETION NOTE PATIENT: VICENTE GUB: 1955 DATES OF TREATMENT: 10/28/2022- 11/12/2022 DIAGNOSIS: Lung cancer, left upper lobe, pleomorphic carcinoma, stage IIb [id number], stage IIB AJCC 8th edition (chest wall invasion), PD-L1 95%, KRAS G12C mutation present with recurrence including pulmonary metastasis and left upper chest wall/supraclavicular recurrence. AREA TREATED: Left upper chest wall, supraclavicular region DELIVERED DOSE: Area: Left upper chest wall, supraclavicular region 3000 cGy in 10 fractions, IMRT, 6MV with daily CBCT TOTAL: 3000cGy in 10 fractions ELAPSED TIME: 15 days. CLINICAL SUMMARY: The patient tolerated radiation with mild radiation related dermatitis and fatigue as expected. His pain improved by the end of treatment. The patient was able to complete treatment as intended without break interruption or modification of prescription plan. The disease response will be assessed in clinic. He has continued systemic treatment under the direction of Dr. Grigsby. The patient will be seen again in 2 weeks for post radiation follow-up. Staff Physician Deon Limon M.D. / WST 0:33 AM documented in this encounter [facility] 11-11-2022 History of Present illness Narrative STAT LFT's and LDH resulted and remain elevated. Dr. Grigsby wants to hold treatment today and have patient return next week for labs, to see Seb and possible treatment depending on lab results. PSS aware to schedule. Rachel Hurst RN Dr. Grigsby to the infusion room to discuss with patient the increase liver function test results. Would like to redraw and rerun CMP and LDH stat to see if any better. If so, will treat. If not, will not treat and bring patient back in 1 week to see if labs are better. Patient verbalized understanding. Vanessa Cruz RN Labs still elevated. Patient IV Dc'D and released. Lead nurse notified and will verify plans with Dr. Grigsby. Informed patient we will call him with his appointment. Treatment plan deferred. Vanessa Cruz RN STAT liver function panel and LDH ordered per Dr. Grigsby's request due to high AST and ALT results today. Depending on results may hold treatment for 1 week and recheck labs at that time. Rachel Hurst RN documented in this encounter [facility] 11-11-2022 Miscellaneous Notes Ambulatory Pharmacy Prior Authorization Note Provider Intervention Required?: No- Pharmacy completed on your behalf. Rx Plan: Drug: Oxycodone-Acetaminophen 5/325 Cover My Meds Diamond: [id number] Determination: Approved Prior Authorization/Case #: [id number] Prior Authorization Expiration: 07/10/2023 Time to PA Submission in CMM: 15 min Time to PA Determination in CMM: Same day Additional Information: For questions relating to this submission, please contact [facility] at [phone] documented in this encounter [facility] 11-11-2022 Miscellaneous Notes Please sign if agreeable. Merissa Fam RN documented in this encounter [facility] 11-11-2022 History of Present illness Narrative PATIENT NAME: Pedro Gu DATE: 11/11/2022 PRIMARY CARE PHYSICIAN: Dr. Christina Azul OTHER PHYSICIANS: Dr. Verito Whelan, Dr. Marianne Fields, Dr. Limon Portions of this encounter note have been copied from the note from 10/31/2022 and has been updated where appropriate, and reflect my current medical decision making from today. CC: This is a 67 year old male with recently diagnosed metastatic lung cancer, seen for scheduled follow-up and treatment. INTERIM HISTORY: Since the patient's last visit here he has continued on radiation therapy to his left upper chest wall, and is tolerating treatment well. He still takes pain medications including Percocet and gabapentin each in the mornings and at night, and his pain has improved significantly. Apparently he was recently started on antibiotics for suspected bronchitis. No other medical changes. Overall he feels quite well today. MEDICATIONS: Current Outpatient Medications Medication Sig gabapentin (NEURONTIN) 300 mg capsule Take 1 capsule by mouth twice daily for 30 days. levoFLOXacin (LEVAQUIN) 500 mg tablet Take 1 tablet by mouth once daily for 10 days. oxyCODONE-acetaminophen (PERCOCET) 5-325 mg tablet Take 1-2 tablets by mouth every 4 hours as needed for pain. ipratropium-albuterol (DUONEB) 0.5 mg-3 mg(2.5 mg base)/3 mL nebu Inhale 3 mL as instructed every 6 hours as needed for wheezing/shortness of breath. Nebulizer and Compressor For Neb 1 Each as needed. Use as directed. metoprolol tartrate, short acting, (LOPRESSOR) 25 mg tablet Take 50 mg by mouth twice daily. isosorbide mononitrate ER (IMDUR) 30 mg 24 hr tablet Take 30 mg by mouth once daily. cilostazol (PLETAL) 100 mg tablet Take 1 tablet by mouth twice daily. clopidogrel (PLAVIX) 75 mg tablet Take 1 tablet by mouth once daily. aspirin 81 mg chewable tablet Take 81 mg by mouth once daily. atorvastatin (LIPITOR) 40 mg tablet Take 40 mg by mouth once daily. No current facility-administered medications for this visit. ALLERGIES: ALLERGIES No Known Allergies PAST MEDICAL HISTORY: PAST MEDICAL HISTORY Diagnosis Date Carotid artery disease (HCC) bilateral COPD (chronic obstructive pulmonary disease) (HCC) Heart attack (HCC) History of non-ST elevation myocardial infarction (NSTEMI) HTN (hypertension) Hypertension 09/25/2021 Lung cancer (HCC) Malignant neoplasm of lower lobe of left lung (HCC) Peripheral arterial disease (HCC) 2019 R REGISTRATION COORDINATOR stent PAST SURGICAL HISTORY: PAST SURGICAL HISTORY Procedure Laterality Date BACK SURGERY HX 2019 CABG (4) VEIN GRAFTS & ARTERIAL GRAFT(S) 2016 LOWER EXTREMITY FUNNEL SETTER W/WO STENT Right 2019 right common femoral artery stent REMOVAL OF LUNG,LOBECTOMY Left 09/26/2021 VATS left upper lung wedge resection, completion lobectomy, lymph node dissection, application of Progel to staple line, intercostal nerve blocks for cancer FAMILY HISTORY: FAMILY HISTORY Problem Relation Age of Onset Lung Cancer Father Heart Attack Father Coronary Artery Disease Father SOCIAL HISTORY: Social History Tobacco Use Smoking status: Former Packs/day: 2.00 Years: 50.00 Pack years: 100.00 Types: Cigarettes Start date: 1970 Passive exposure: Past Smokeless tobacco: Never Tobacco comments: was smoking on and off fully quit 09/14/21 Vaping Use Vaping Use: Never used Substance Use Topics Alcohol use: Yes Alcohol/week: 30.0 standard drinks Types: 30 Cans of Beer (12oz) per week Comment: 4-9 beers per day Drug use: Never REVIEW OF SYSTEMS: General: No weight loss, malaise or fevers. Positive fatigue. HEENT: Negative for frequent or significant headaches. No changes in hearing or vision, no nose bleeds or other nasal problems Respiratory: Negative for wheezing. Chronic shortness of breath. Positive cough. Cardiovascular: Negative for chest pain, leg swelling or palpitations. GI: Negative for abdominal discomfort, blood in stools or black stools or change in bowel habits. Positive constipation. : No history of dysuria, frequency or incontinence. Musculoskeletal: Negative for joint pain or swelling, back pain and muscle pain. Skin: Negative for lesions and itching. Positive rash- Improving. Hematology/Lymphology: Negative for prolonged bleeding, bruising easily or swollen nodes. Neuro: No history of headaches, syncope, paralysis, seizures or tremors. PHYSICAL EXAM: BP 162/84 Pulse 72 Temp (!) 35.9 C (96.6 F) (Temporal) Resp 18 Ht 168.3 cm (5' 6.26 ) Wt 61.2 kg (134 lb 14.7 oz) SpO2 96% BMI 21.61 kg/m ECOG 0 Exam limited to gross visualization where appropriate due to COVID-19. Gen.: This is an age-appropriate patient in no acute distress. Head: Appears atraumatic with no visible lesions. Eyes: Pupils equally round and reactive to light, extraocular muscles are intact. Neck: Supple. Mouth: Masked. Respiratory: Appears to be respiring comfortably. Neurologic: Nonfocal to gross visualization. Alert and oriented 3. Psychiatric: No evidence of inappropriate anxiety or depression. Skin: Visible areas of skin without lesions, wounds or petechiae. Positive rash- mainly involving face and upper back. 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 - Visceral pleural invasion present. - Tumor invades into parietal pleural/chest wall adipose tissue. - Arterial invasion present. - Five hilar/peribronchial lymph nodes, negative for tumor (0/5). - Emphysema with patchy smoking-related interstitial fibrosis. - Margins negative. Molecular markers: RET rearrangement negative, ROS1 negative, BRAF negative, EGFR negative, HER-2 negative, KRAS c34G>T positive, ALK 1 negative, PD-L1 95% LABS: Hemoglobin (g/dL) Date Value 11/11/2022 11.2 07/03/2021 14.2 Hematocrit (%) Date Value 11/11/2022 33.2 07/03/2021 41.8 WBC (k/uL) Date Value 11/11/2022 6.01 07/03/2021 5.83 Platelet Count (k/uL) Date Value 11/11/2022 225 07/03/2021 265 RADIOLOGY/OTHER STUDIES: 10/10/2022 PET scan IMPRESSION: 1. Neck: hypermetabolic focus in the right tonsillar/parapharyngeal region, similar to prior. 2. Chest: Hypermetabolic left subpectoral region mass. Hypermetabolic bilateral lung nodules. Findings concerning for progression of neoplastic process. 3. Abdomen and pelvis: No evidence of FDG avid neoplastic process 4. Skeleton: No hypermetabolic osseous lesions 09/17/2022 CT chest IMPRESSION: 1. Multiple new and enlarging bilateral pulmonary nodules, highly suspicious for progression of disease. 2. No evidence of new bulky intrathoracic lymphadenopathy. 09/17/2022 CT abdomen/pelvis IMPRESSION: 1. No evidence of abdominal or pelvic metastatic disease. 2. Findings compatible with a subcapsular hematoma within the spleen. 3. No evidence of abdominal or pelvic lymphadenopathy. 06/14/2022 CT Chest IMPRESSION: 1. Several indeterminate subcentimeter nodular opacities measuring up to 7 mm, new since 09/25/21. Consider interval follow-up. 2. Other noncalcified subcentimeter nodular opacities measuring less than 5 mm, stable. 3. New trace loculated left pleural effusion, most likely related to postoperative change. 06/11/2022 Chest xray IMPRESSION: A small loculated left pleural effusion is felt to have progressed in size from the prior study, as above. 04/12/2022 Bone scan ([facility]) Degenerative findings. No evidence of metastatic disease. 05/23/2022 MRI Lumbar Spine Impression: Heterogeneous appearance of the vertebral bodies stable from the prior exam, nonspecific. No enhancing mass. Mild to moderate discogenic changes L2-S1 grossly stable. For minimal stenosis at several levels as detailed. 10/31/2021 Brain MRI IMPRESSION: No evidence of an acute intracranial process. No intracranial enhancing lesion to suggest metastasis. 09/25/2021 CT chest IMPRESSION: Increased peripheral left upper lobe mass with adjacent curvilinear scarlike opacity concerning for neoplasm. No other acute thoracic disease. 07/11/2021 CT neck IMPRESSION: ASYMMETRIC HIGH DENSITY WITH ILL-DEFINED MARGINS INVOLVING THE ANTERIOR ASPECT OF THE RIGHT PALATINE TONSIL WITHOUT ASSOCIATED NODULARITY. THIS IS A NONSPECIFIC FINDING AND MAY REFLECT HYPEREMIA FROM TONSILLITIS. THIS CORRESPONDS TO THE LOCATION OF FDG ACTIVITY ON THE PRIOR PET/CT EXAM. INTERVAL FOLLOW-UP IMAGING AND/OR DIRECT VISUALIZATION MAY BE OF BENEFIT TO EXCLUDE UNDERLYING SUBTLE MASS. MODERATE DEGENERATIVE CHANGES INVOLVING THE CERVICAL SPINE. MODERATE ATHEROSCLEROSIS AT THE CAROTID BIFURCATIONS. PARANASAL SINUS MUCOSAL THICKENING/SECRETIONS, DESCRIBED ABOVE. SMALL MILLIMETRIC LYMPH NODES SEEN AT SOME NECK LEVELS, NONE SIGNIFICANTLY ENLARGED BY IMAGING SIZE CRITERIA. IMPRESSION: ASYMMETRIC HIGH DENSITY WITH ILL-DEFINED MARGINS INVOLVING THE ANTERIOR ASPECT OF THE RIGHT PALATINE TONSIL WITHOUT ASSOCIATED NODULARITY. THIS IS A NONSPECIFIC FINDING AND MAY REFLECT HYPEREMIA FROM TONSILLITIS. THIS CORRESPONDS TO THE LOCATION OF FDG ACTIVITY ON THE PRIOR PET/CT EXAM. INTERVAL FOLLOW-UP IMAGING AND/OR DIRECT VISUALIZATION MAY BE OF BENEFIT TO EXCLUDE UNDERLYING SUBTLE MASS. MODERATE DEGENERATIVE CHANGES INVOLVING THE CERVICAL SPINE. MODERATE ATHEROSCLEROSIS AT THE CAROTID BIFURCATIONS. PARANASAL SINUS MUCOSAL THICKENING/SECRETIONS, DESCRIBED ABOVE. SMALL MILLIMETRIC LYMPH NODES SEEN AT SOME NECK LEVELS, NONE SIGNIFICANTLY ENLARGED BY IMAGING SIZE CRITERIA. CT neck 05/28/2021 PET scan IMPRESSION: 1. NECK: * FDG avid soft tissue mass in the right tonsil region could represent tonsillitis versus neoplastic process. Correlate with ENT exam. 2. CHEST: * Enlarging left upper lobe nodule measuring 2.7 x 1.8 cm with max SUV of 4.8 suspicious for neoplasm. No mediastinal or hilar lymphadenopathy. 3. ABDOMEN/PELVIS: * No FDG avid neoplastic process. . 4. EXTREMITIES/SKELETON: * No suspicious FDG avid osseous lesion. ASSESSMENT/PLAN: 1. 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 Status post left upper lobectomy and mediastinal lymphadenectomy 09/26/2021. The primary tumor involved the visceral and parietal pleura with evidence of invasion into the chest wall adipose tissue. Surgical margins negative. Postop it was recommended the patient receive adjuvant chemotherapy with cisplatin plus pemetrexed x4 cycles. He received his first cycle on 10/26/2021, and it was complicated by renal dysfunction. Subsequently the patient's treatment was changed to carboplatin plus pemetrexed. He completed his fourth cycle on 01/22/2022. After completing chemotherapy the patient received adjuvant radiation therapy 03/26/2022 - 05/01/2022 (5400 cGy in 27 fractions). August 2022 the patient developed increasing cough and shortness of breath. CT scans 09/17/2022 revealed multiple bilateral pulmonary nodules, suspicious for metastases. PET scan 10/10/2022 revealed a hypermetabolic mass in the left subpectoral region plus bilateral pulmonary nodules consistent with metastatic disease. Biopsy was recommended but the patient declined. Subsequently it was elected to start systemic therapy with pembrolizumab, with plans to give 200 mg IV every 3 weeks. Pembrolizumab cycle 1 was given 10/21/2022. Palliative radiation therapy to the left upper chest wall was started on 10/28/2022. Currently the patient is clinically stable. The patient was scheduled to receive cycle 2 pembrolizumab today, but due to elevated LFTs the treatment was held. He will return in 1 week for follow-up, at which time we will resume pembrolizumab if labs improved. If not we will need to consider second line treatment options. He will continue as planned with radiation. 2. Centrilobular emphysema (HCC) - ICD9: 492.8, ICD10: J43.2 Long history of tobacco abuse, quit September 2021. The patient has chronic shortness of breath and cough secondary to COPD. Currently on antibiotics for suspected bronchitis. 3. Coronary artery disease Status post AMI 2015. Status post CABG x 4 in [place] 2015. Currently stable. Continue management per PCP/cardiology. 4. Peripheral vascular disease Status post balloon angioplasty right lower leg 2019. On long-term antiplatelet agents with Plavix and Pletal. Continue management per PCP/vascular surgery. 5. Abnormal right tonsil on PET scan (05/28/2021) and neck CT (07/11/2021). Radiographic abnormalities identified on baseline PET scan and neck CT. The patient was seen by [facility] on 07/26/2021, and clinical evaluation most consistent with inflammatory/post-infectious findings. No suspicion for malignancy. The patient apparently chews tobacco, and was advised to discontinue. He will follow-up with ENT as indicated. 6. Cancer related pain Severe pain left upper chest wall since August 2022. Currently on Percocet and gabapentin with moderate relief. Will consider referral to [facility] palliative medicine if symptoms persist. 7. Abnormal LFTs Labs from today reveal significant elevation of the SGOT and SGPT, most likely transaminitis secondary to immunotherapy. We will hold treatment today and repeat labs in 1 week on return. A long course of steroids will be considered if LFTs remain abnormal. Pito Grigsby MD documented in this encounter [facility] 11-04-2022 History of Present illness Narrative Radiation Oncology - On Treatment Review (OTR) Note PATIENT NAME: Pedro Gu PATIENT DIAGNOSIS: Lung cancer, left upper lobe, pleomorphic carcinoma, stage IIb [id number], stage IIB AJCC 8th edition (chest wall invasion), PD-L1 95%, KRAS G12C mutation present with recurrence including pulmonary metastasis and left upper chest wall/supraclavicular recurrence. COURSE: palliative AREA TREATED: Left upper chest wall supraclavicular region CURRENT DOSE: 1200 cGy in 4 fx PLANNED DOSE: 3000 cGy in 10 fx SUBJECTIVE: Pain has improved. EXAM: 11/04/22 1119 BP: 159/84 Pulse: 87 Resp: 16 Temp: 36.5 C (97.7 F) SpO2: 95% Weight: 60.1 kg (132 lb 6.4 oz) KPS: 100 General Appearance: Alert and oriented. No acute distress. Radiation dermatitis: No IMAGING/LAB RESULTS: None Treatment chart checked: Yes Patient treatment site reviewed and verified:Yes Port films reviewed and current:Yes Medications started: None ASSESSMENT/PLAN: Patient doing well. Chart and imaging reviewed. Continue radiation as outlined. Jyoti Limon MD documented in this encounter [facility] 11-02-2022 Miscellaneous Notes Called with increasing cough and occasional blood tinged sputum. Deenies any other symptoms. Levaquin sent Instructed to see Dr. Grigsby next week documented in this encounter [facility] 10-31-2022 History of Present illness Narrative PATIENT NAME: Pedro Gu DATE: 10/31/2022 PRIMARY CARE PHYSICIAN: Dr. Christina Azul OTHER PHYSICIANS: Dr. Verito Whelan, Dr. Marianne Fields, Dr. Limon Portions of this encounter note have been copied from the note from 10/21/2022 and has been updated where appropriate, and reflect my current medical decision making from today. CC: This is a 67 year old male with recently diagnosed metastatic lung cancer, seen for scheduled follow-up and treatment. INTERIM HISTORY: When last seen on 10/21/2022 the patient received his first cycle of pembrolizumab, and he tolerated it well. He believes his left upper chest wall pain improved almost immediately. He subsequently was seen by Dr. Limon, and was started on palliative radiation therapy to the left upper chest wall on 10/28/2022. He is tolerating treatment well. On follow-up today he has no new complaints. MEDICATIONS: Current Outpatient Medications Medication Sig oxyCODONE-acetaminophen (PERCOCET) 5-325 mg tablet Take 1-2 tablets by mouth every 4 hours as needed for pain. ipratropium-albuterol (DUONEB) 0.5 mg-3 mg(2.5 mg base)/3 mL nebu Inhale 3 mL as instructed every 6 hours as needed for wheezing/shortness of breath. Nebulizer and Compressor For Neb 1 Each as needed. Use as directed. metoprolol tartrate, short acting, (LOPRESSOR) 25 mg tablet Take 50 mg by mouth twice daily. isosorbide mononitrate ER (IMDUR) 30 mg 24 hr tablet Take 30 mg by mouth once daily. cilostazol (PLETAL) 100 mg tablet Take 1 tablet by mouth twice daily. clopidogrel (PLAVIX) 75 mg tablet Take 1 tablet by mouth once daily. aspirin 81 mg chewable tablet Take 81 mg by mouth once daily. atorvastatin (LIPITOR) 40 mg tablet Take 40 mg by mouth once daily. No current facility-administered medications for this visit. ALLERGIES: ALLERGIES No Known Allergies PAST MEDICAL HISTORY: PAST MEDICAL HISTORY Diagnosis Date Carotid artery disease (HCC) bilateral COPD (chronic obstructive pulmonary disease) (HCC) Heart attack (HCC) History of non-ST elevation myocardial infarction (NSTEMI) HTN (hypertension) Hypertension 09/25/2021 Lung cancer (HCC) Malignant neoplasm of lower lobe of left lung (HCC) Peripheral arterial disease (HCC) 2019 R REGISTRATION COORDINATOR stent PAST SURGICAL HISTORY: PAST SURGICAL HISTORY Procedure Laterality Date BACK SURGERY HX 2019 CABG (4) VEIN GRAFTS & ARTERIAL GRAFT(S) 2016 LOWER EXTREMITY FUNNEL SETTER W/WO STENT Right 2019 right common femoral artery stent REMOVAL OF LUNG,LOBECTOMY Left 09/26/2021 VATS left upper lung wedge resection, completion lobectomy, lymph node dissection, application of Progel to staple line, intercostal nerve blocks for cancer FAMILY HISTORY: FAMILY HISTORY Problem Relation Age of Onset Lung Cancer Father Heart Attack Father Coronary Artery Disease Father SOCIAL HISTORY: Social History Tobacco Use Smoking status: Former Packs/day: 2.00 Years: 50.00 Pack years: 100.00 Types: Cigarettes Start date: 1970 Passive exposure: Past Smokeless tobacco: Never Tobacco comments: was smoking on and off fully quit 09/14/21 Vaping Use Vaping Use: Never used Substance Use Topics Alcohol use: Yes Alcohol/week: 30.0 standard drinks Types: 30 Cans of Beer (12oz) per week Comment: 4-9 beers per day Drug use: Never REVIEW OF SYSTEMS: General: No weight loss, malaise or fevers. Positive fatigue. HEENT: Negative for frequent or significant headaches. No changes in hearing or vision, no nose bleeds or other nasal problems Respiratory: Negative for wheezing. Chronic shortness of breath. Positive cough. Cardiovascular: Negative for chest pain, leg swelling or palpitations. GI: Negative for abdominal discomfort, blood in stools or black stools or change in bowel habits. Positive constipation. : No history of dysuria, frequency or incontinence. Musculoskeletal: Negative for joint pain or swelling, back pain and muscle pain. Skin: Negative for lesions and itching. Positive rash- Improving. Hematology/Lymphology: Negative for prolonged bleeding, bruising easily or swollen nodes. Neuro: No history of headaches, syncope, paralysis, seizures or tremors. PHYSICAL EXAM: BP 114/65 Pulse 90 Temp 36.2 C (97.2 F) (Temporal) Resp 16 Ht 168.3 cm (5' 6.26 ) Wt 60 kg (132 lb 3.2 oz) SpO2 100% BMI 21.17 kg/m ECOG 0 Exam limited to gross visualization where appropriate due to COVID-19. Gen.: This is an age-appropriate patient in no acute distress. Head: Appears atraumatic with no visible lesions. Eyes: Pupils equally round and reactive to light, extraocular muscles are intact. Neck: Supple. Mouth: Masked. Respiratory: Appears to be respiring comfortably. Neurologic: Nonfocal to gross visualization. Alert and oriented 3. Psychiatric: No evidence of inappropriate anxiety or depression. Skin: Visible areas of skin without lesions, wounds or petechiae. Positive rash- mainly involving face and upper back. PATHOLOGY: 10/21/2022 [id number] NGS analysis KRAS G12C mutation present, 5.2% MSI high not detected EGFR, ALK, ROS1, BRAF negative 09/26/2021 Left upper lobectomy and mediastinal lymphadenectomy Lung, left upper lobe, wedge resection and completion lobectomy: - Pleomorphic carcinoma (2.2 cm) (See comment and synoptic template). - Visceral pleural invasion present. - Tumor invades into parietal pleural/chest wall adipose tissue. - Arterial invasion present. - Five hilar/peribronchial lymph nodes, negative for tumor (0/5). - Emphysema with patchy smoking-related interstitial fibrosis. - Margins negative. Molecular markers: RET rearrangement negative, ROS1 negative, BRAF negative, EGFR negative, HER-2 negative, KRAS c34G>T positive, ALK 1 negative, PD-L1 95% LABS: Hemoglobin (g/dL) Date Value 10/31/2022 10.8 07/03/2021 14.2 Hematocrit (%) Date Value 10/31/2022 32.0 07/03/2021 41.8 WBC (k/uL) Date Value 10/31/2022 4.58 07/03/2021 5.83 Platelet Count (k/uL) Date Value 10/31/2022 247 07/03/2021 265 RADIOLOGY/OTHER STUDIES: 10/10/2022 PET scan IMPRESSION: 1. Neck: hypermetabolic focus in the right tonsillar/parapharyngeal region, similar to prior. 2. Chest: Hypermetabolic left subpectoral region mass. Hypermetabolic bilateral lung nodules. Findings concerning for progression of neoplastic process. 3. Abdomen and pelvis: No evidence of FDG avid neoplastic process 4. Skeleton: No hypermetabolic osseous lesions 09/17/2022 CT chest IMPRESSION: 1. Multiple new and enlarging bilateral pulmonary nodules, highly suspicious for progression of disease. 2. No evidence of new bulky intrathoracic lymphadenopathy. 09/17/2022 CT abdomen/pelvis IMPRESSION: 1. No evidence of abdominal or pelvic metastatic disease. 2. Findings compatible with a subcapsular hematoma within the spleen. 3. No evidence of abdominal or pelvic lymphadenopathy. 06/14/2022 CT Chest IMPRESSION: 1. Several indeterminate subcentimeter nodular opacities measuring up to 7 mm, new since 09/25/21. Consider interval follow-up. 2. Other noncalcified subcentimeter nodular opacities measuring less than 5 mm, stable. 3. New trace loculated left pleural effusion, most likely related to postoperative change. 06/11/2022 Chest xray IMPRESSION: A small loculated left pleural effusion is felt to have progressed in size from the prior study, as above. 04/12/2022 Bone scan ([facility]) Degenerative findings. No evidence of metastatic disease. 05/23/2022 MRI Lumbar Spine Impression: Heterogeneous appearance of the vertebral bodies stable from the prior exam, nonspecific. No enhancing mass. Mild to moderate discogenic changes L2-S1 grossly stable. For minimal stenosis at several levels as detailed. 10/31/2021 Brain MRI IMPRESSION: No evidence of an acute intracranial process. No intracranial enhancing lesion to suggest metastasis. 09/25/2021 CT chest IMPRESSION: Increased peripheral left upper lobe mass with adjacent curvilinear scarlike opacity concerning for neoplasm. No other acute thoracic disease. 07/11/2021 CT neck IMPRESSION: ASYMMETRIC HIGH DENSITY WITH ILL-DEFINED MARGINS INVOLVING THE ANTERIOR ASPECT OF THE RIGHT PALATINE TONSIL WITHOUT ASSOCIATED NODULARITY. THIS IS A NONSPECIFIC FINDING AND MAY REFLECT HYPEREMIA FROM TONSILLITIS. THIS CORRESPONDS TO THE LOCATION OF FDG ACTIVITY ON THE PRIOR PET/CT EXAM. INTERVAL FOLLOW-UP IMAGING AND/OR DIRECT VISUALIZATION MAY BE OF BENEFIT TO EXCLUDE UNDERLYING SUBTLE MASS. MODERATE DEGENERATIVE CHANGES INVOLVING THE CERVICAL SPINE. MODERATE ATHEROSCLEROSIS AT THE CAROTID BIFURCATIONS. PARANASAL SINUS MUCOSAL THICKENING/SECRETIONS, DESCRIBED ABOVE. SMALL MILLIMETRIC LYMPH NODES SEEN AT SOME NECK LEVELS, NONE SIGNIFICANTLY ENLARGED BY IMAGING SIZE CRITERIA. IMPRESSION: ASYMMETRIC HIGH DENSITY WITH ILL-DEFINED MARGINS INVOLVING THE ANTERIOR ASPECT OF THE RIGHT PALATINE TONSIL WITHOUT ASSOCIATED NODULARITY. THIS IS A NONSPECIFIC FINDING AND MAY REFLECT HYPEREMIA FROM TONSILLITIS. THIS CORRESPONDS TO THE LOCATION OF FDG ACTIVITY ON THE PRIOR PET/CT EXAM. INTERVAL FOLLOW-UP IMAGING AND/OR DIRECT VISUALIZATION MAY BE OF BENEFIT TO EXCLUDE UNDERLYING SUBTLE MASS. MODERATE DEGENERATIVE CHANGES INVOLVING THE CERVICAL SPINE. MODERATE ATHEROSCLEROSIS AT THE CAROTID BIFURCATIONS. PARANASAL SINUS MUCOSAL THICKENING/SECRETIONS, DESCRIBED ABOVE. SMALL MILLIMETRIC LYMPH NODES SEEN AT SOME NECK LEVELS, NONE SIGNIFICANTLY ENLARGED BY IMAGING SIZE CRITERIA. CT neck 05/28/2021 PET scan IMPRESSION: 1. NECK: * FDG avid soft tissue mass in the right tonsil region could represent tonsillitis versus neoplastic process. Correlate with ENT exam. 2. CHEST: * Enlarging left upper lobe nodule measuring 2.7 x 1.8 cm with max SUV of 4.8 suspicious for neoplasm. No mediastinal or hilar lymphadenopathy. 3. ABDOMEN/PELVIS: * No FDG avid neoplastic process. . 4. EXTREMITIES/SKELETON: * No suspicious FDG avid osseous lesion. ASSESSMENT/PLAN: 1. 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 Status post left upper lobectomy and mediastinal lymphadenectomy 09/26/2021. The primary tumor involved the visceral and parietal pleura with evidence of invasion into the chest wall adipose tissue. Surgical margins negative. Postop it was recommended the patient receive adjuvant chemotherapy with cisplatin plus pemetrexed x4 cycles. He received his first cycle on 10/26/2021, and it was complicated by renal dysfunction. Subsequently the patient's treatment was changed to carboplatin plus pemetrexed. He completed his fourth cycle on 01/22/2022. After completing chemotherapy the patient received adjuvant radiation therapy 03/26/2022 - 05/01/2022 (5400 cGy in 27 fractions). August 2022 the patient developed increasing cough and shortness of breath. CT scans 09/17/2022 revealed multiple bilateral pulmonary nodules, suspicious for metastases. PET scan 10/10/2022 revealed a hypermetabolic mass in the left subpectoral region plus bilateral pulmonary nodules consistent with metastatic disease. Biopsy was recommended but the patient declined. Subsequently it was elected to start systemic therapy with pembrolizumab, with plans to give 200 mg IV every 3 weeks. Pembrolizumab cycle 1 was given 10/21/2022. Palliative radiation therapy to the left upper chest wall was started on 10/28/2022. Currently the patient is clinically stable. He will continue as planned with radiation. I will see him back in 11/11/2022 for pembrolizumab cycle 2. 2. Centrilobular emphysema (HCC) - ICD9: 492.8, ICD10: J43.2 Long history of tobacco abuse, quit September 2021. The patient has chronic shortness of breath and cough secondary to COPD. 3. Coronary artery disease Status post AMI 2016. Status post CABG x 4 in [place] 2016. Currently stable. Continue management per PCP/cardiology. 4. Peripheral vascular disease Status post balloon angioplasty right lower leg 2019. On long-term antiplatelet agents with Plavix and Pletal. Continue management per PCP/vascular surgery. 5. Abnormal right tonsil on PET scan (05/28/2021) and neck CT (07/11/2021). Radiographic abnormalities identified on baseline PET scan and neck CT. The patient was seen by [facility] ENT on 07/26/2021, and clinical evaluation most consistent with inflammatory/post-infectious findings. No suspicion for malignancy. The patient apparently chews tobacco, and was advised to discontinue. He will follow-up with ENT as indicated. 6. Cancer related pain Severe pain left upper chest wall since August 2022. Currently on Percocet with moderate relief. Will consider referral to [facility] palliative medicine if symptoms persist. Pito Grigsby MD documented in this encounter [facility] 10-30-2022 History of Present illness Narrative Oncology Nutrition Therapy Reassessment RECOMMENDED MALNUTRITION DIAGNOSIS: NO MALNUTRITION IDENTIFIED Some elements copied from my note on 04/03/2022, have been updated and all reflect current decision making from today, 10/30/2022 Nutrition Diagnosis: Increased protein and energy needs related to hypermetabolic disease process as evidenced by need for weight maintenance and preservation of muscle mass. Nutrition Intervention: -aim for weight maintenance -continue small frequent meals and snacks -encouraged ongoing hydration -continue supplementation -boost glucose control; 1-2 per day -provider contact information provided for further questions/concerns Nutrition Monitoring & Evaluation: -PO Intake -Wt status -Supplement tolerance/acceptance -Biochemical Markers -Plan of care Date of last encounter: April 03, 2022 Patient met goal(s): Yes Patient's symptoms are: None Pt presents for nutrition counseling for lung cancer, s/p left upper lobectomy and mediastinal lymphadenectomy (09/26/21). Pt was previously treated with RT, cisplatin + pemetrexed. Unfortunately pt's cancer recurred and Pt is currently being treated with RT, Keytruda. Pt denies any chewing/swallowing issues, denies current N/V/D/C. Pt denies food allergies/intolerances. Appetite appears to be good, Intakes are good. Pt mostly has questions regarding what to eat as he states he was reading online and watching [employer] and felt confused. Discussed with pt importance of overall healthy balanced diet that includes lean proteins, fruits, vegetables, and whole grains. Advised against following any fad diets or recommendations that exclude entire food groups. Reviewed interventions above, problem solved with pt ways to meet recommendations, and answered all of patient's questions. Thank you for allowing me to participate in the care of this pt. Readiness to Learn: Cognitive ability: Alert and oriented Motivation to learn: Interested Family support: Unable to assess - Family not present Instruction provided to: Patient Patient learns best by: Individual Instruction Factors affecting learning: None Physical limitations affecting learning: None Educational materials provided: none this visit Anthropometrics: Height: Last 1 Encounter Ht Readings: Date: Ht: 10/21/2022 168.3 cm (5' 6.26 ) Current weight: Last 1 Encounter Wt Readings: Date: Wt: 10/28/2022 60.8 kg (134 lb) Estimated body mass index is 21.46 kg/m as calculated from the following: Height as of 10/21/22: 168.3 cm (5' 6.26 ). Weight as of 10/28/22: 60.8 kg (134 lb). Resting Metabolic Rate: 1344 Weight Change: n/a Dosing Weight: 60.8 kg Estimated kilocalorie needs: 1824 kilocalories determined by 30 kcal/kg Estimated protein needs: 61-91 grams determined by 1.0-1.5 g/kg Dosing weight Estimated fluid needs: ~1800 milliliters based on 1 mL per kcal (unless otherwise noted) Nutrition Focused Physical Exam: Unable to perform exam due to potential for patient discomfort (physical/emotional), will re-attempt during reassessment. Potential Signs of Inflammation: chronic condition Allergies: Patient has no known allergies. Medications: Current Outpatient Medications Medication Sig Dispense Refill oxyCODONE-acetaminophen (PERCOCET) 5-325 mg tablet Take 1-2 tablets by mouth every 4 hours as needed for pain. 50 tablet 0 ipratropium-albuterol (DUONEB) 0.5 mg-3 mg(2.5 mg base)/3 mL nebu Inhale 3 mL as instructed every 6 hours as needed for wheezing/shortness of breath. 120 Each 3 Nebulizer and Compressor For Neb 1 Each as needed. Use as directed. 1 Each 0 metoprolol tartrate, short acting, (LOPRESSOR) 25 mg tablet Take 50 mg by mouth twice daily. isosorbide mononitrate ER (IMDUR) 30 mg 24 hr tablet Take 30 mg by mouth once daily. cilostazol (PLETAL) 100 mg tablet Take 1 tablet by mouth twice daily. clopidogrel (PLAVIX) 75 mg tablet Take 1 tablet by mouth once daily. aspirin 81 mg chewable tablet Take 81 mg by mouth once daily. atorvastatin (LIPITOR) 40 mg tablet Take 40 mg by mouth once daily. No current facility-administered medications for this visit. Need for Follow up: prn Referred by: Ricardo Rai RN MNT Billing Type: Re-assess/15 min 2 units Time Spent with Patient: 30 minutes Signed by: Dominique Gray MS, RDN, LD documented in this encounter [facility] 10-24-2022 History of Present illness Narrative Radiation Oncology - Follow Up/new problem note PATIENT NAME: Pedro Gu PATIENT DIAGNOSIS: Lung cancer, left upper lobe, pleomorphic carcinoma, stage IIb [id number], stage IIB AJCC 8th edition (chest wall invasion), PD-L1 95%, KRAS G12C mutation present RADIATION SUMMARY: DATES OF TREATMENT: 03/26/2022- 05/01/2022 AREA TREATED: left lung DELIVERED DOSE: Area: left lung 5400 cGy in 27 fractions, 2 Arcs, IMRT (VMAT), 6MV/ with daily CBCT TOTAL: 5400 cGy in 27 fractions ELAPSED TIME: 36 days. INTERVAL HISTORY: Patient returns with newly diagnosed recurrence including bilateral lung and upper left chest wall. He presented with increasing pain in the left upper anterior chest wall. He had also had increasing cough and some dyspnea on exertion. He underwent evaluation on 09/23/[address] PET demonstratin. Neck: hypermetabolic focus in the right tonsillar/parapharyngeal region, similar to prior. 2. Chest: Hypermetabolic left subpectoral region mass. Hypermetabolic bilateral lung nodules. Findings concerning for progression of neoplastic process. 3. Abdomen and pelvis: No evidence of FDG avid neoplastic process 4. Skeleton: No hypermetabolic osseous lesions RADIOLOGY: CT chest 06/14/2022:1. Several indeterminate subcentimeter nodular opacities measuring up to 7 mm, new since 09/25/21. Consider interval follow-up. 2. Other noncalcified subcentimeter nodular opacities measuring less than 5 mm, stable. 3. New trace loculated left pleural effusion, most likely related to postoperative change. MRI lumbar spine 05/23/2022: Heterogeneous appearance vertebral body stable from prior exam. Nonspecific. No enhancing mass. Mild to moderate discogenic changes L2-S1 grossly stable. Foraminal stenosis several levels ALLERGIES No Known Allergies MEDICATIONS: oxyCODONE-acetaminophen (PERCOCET) 5-325 mg tablet Take 1-2 tablets by mouth every 4 hours as needed for pain. ipratropium-albuterol (DUONEB) 0.5 mg-3 mg(2.5 mg base)/3 mL nebu Inhale 3 mL as instructed every 6 hours as needed for wheezing/shortness of breath. Nebulizer and Compressor For Neb 1 Each as needed. Use as directed. metoprolol tartrate, short acting, (LOPRESSOR) 25 mg tablet Take 50 mg by mouth twice daily. isosorbide mononitrate ER (IMDUR) 30 mg 24 hr tablet Take 30 mg by mouth once daily. cilostazol (PLETAL) 100 mg tablet Take 1 tablet by mouth twice daily. clopidogrel (PLAVIX) 75 mg tablet Take 1 tablet by mouth once daily. aspirin 81 mg chewable tablet Take 81 mg by mouth once daily. atorvastatin (LIPITOR) 40 mg tablet Take 40 mg by mouth once daily. REVIEW OF SYSTEMS: GENERAL: SEE HPI. HEENT: Negative for sudden vision or hearing changes. NECK: Negative for masses in the neck. RESPIRATORY: See HPI CARDIAC: Negative for chest pain, palpitations, murmurs, or syncopal episodes. GI: Negative for nausea, vomiting, diarrhea, constipation, blood per rectum, or melena. : Negative for dysuria, hematuria, urgency, frequency or incontinence. MUSCULOSKELETAL: See HPI NEURO: Negative for dizziness, headache, weakness or numbness. HEMATOLOGIC: Negative for bleeding or easy bruising. SKIN: Negative for rashes or other skin changes. PHYSICAL EXAM: 10/21/2022 Weight 61.2 kg (135 lb) Height 168.3 cm (5' 6.26 ) verified AA/FS BSA 1.7 BMI 21.27 Temp 36.6 ?C (97.9 ?F) Pulse 92 Resp 16 BP 129/79 KPS: 100 General Appearance: Alert and oriented. No acute distress. HEENT: NCAT. Sclera anicteric. PERRL. EOMI. Neck: Normal ROM. No palpable cervical or supraclavicular adenopathy. Chest: No respiratory distress. Lungs clear to auscultation bilaterally. He does have a palpable mass in the left upper chest wall infraclavicular area that extends into his axilla very tender to palpation Heart: Regular rate and rhythm. Abdomen: Soft. Nontender. Nondistended. Musculoskeletal: No edema. Normal ROM in extremities. No bone or spine tenderness. Neuro: Speech fluent. Gait normal. No focal deficits. Skin: No rashes noted Lymphatics: No palpable lymphadenopathy. ASSESSMENT/PLAN: Lung cancer, left upper lobe, pleomorphic carcinoma, stage IIb [id number], stage IIB AJCC 8th edition (chest wall invasion), PD-L1 95%, KRAS G12C mutation present Unfortunately patient has developed recurrent disease including what is likely a normal recurrence in the left infraclavicular area which is very symptomatic for him. He also has bilateral lung disease. I do feel patient would benefit from palliative radiation. Patient had been offered biopsy but did not want to pursue. He is initiating systemic therapy with single agent pembrolizumab. I will plan a simulation in order to direct treatment to the left upper chest wall area. This is above his previous area of treatment. And hopeful this will help his symptoms control. Signed by: Jyoti Limon MD cc: Christina Azul [facility] [place] [facility]– [place] [address] No referring provider defined for this encounter. documented in this encounter [facility] 10-24-2022 Miscellaneous Notes CYCLE 1/DAY 1 POST TREATMENT CALL Today's date: October 24, 2022 Treatment Regimen: Pembrolizumab C1D1 Date: 10/21/22 Called patient to follow-up on symptom management. Spoke with patient. SYMPTOM ASSESSMENT Neuro: None CV/Resp: Shortness of breath - Yes. Most noticeable when resting and driving. Per pt, no more than his normal. GI/: Appetite: No appetite today. Reminded pt of his appointment w/ the hip hop dance instructor this coming Friday, 10/28. Pt verbalizes understanding. and Fluid intake: Pt states, Quite a bit. Denies nausea, vomiting, constipation, or diarrhea. No urinary changes. Integument: None Activity: Patient reported no changes in energy level, energy level fair Do you need to take naps? Yes; as needed. Pain: Left Shoulder. Describes as shooting. Pain radiates down his left arm. Notes his pain has improved since his last visit. Rates his pain 11/27. Takes Percocet at bedtime. Fever: No Chills: No Any new referrals needed? No Reinforced CURRENT treatment education based on current and anticipated symptoms. Discussed port/line care and patient verbalizes understanding: Not Applicable Patient instructed to contact office or after hours Hematology/Oncology fellow for: temperature ? 100.4; questions or concerns. Patient verbalized understanding of when to seek medical attention and after hours number protocol. Denita Rai RN documented in this encounter [facility] 10-23-2022 Miscellaneous Notes Patient has appt already scheduled with JEROME on 10/28. Patient is scheduled to see Receiving Clerk @ 10:00 after his JEROME on 10/28. Rolanda Oneil Pss Clerical: Please schedule pt on a day that he's already going to be here. Audra: MARIA L.... Denita Rai RN Signed Mindy Pandya PA-C Pt voiced interest in meeting w/ the hip hop dance instructor. Order pended. Denita Rai RN documented in this encounter [facility] 10-21-2022 Nurse Note Clinical questionnaires incomplete due to Nurse was Interrupted by provider during rooming process documented in this encounter [facility] 10-21-2022 History of Present illness Narrative PATIENT NAME: Pedro Gu DATE: 10/21/2022 PRIMARY CARE PHYSICIAN: Dr. Christina Azul OTHER PHYSICIANS: Dr. Verito Whelan, Dr. Marianne Fields, Dr. Limon Portions of this encounter note have been copied from the note from 10/15/2022 and has been updated where appropriate, and reflect my current medical decision making from today. CC: This is a 67 year old male with recently diagnosed metastatic lung cancer, seen for scheduled follow-up and treatment. INTERIM HISTORY: At the patient's last visit here his PET scan was reviewed, which revealed evidence of metastases to his left upper chest wall as well as bilateral lungs and mediastinal/hilar lymph nodes. An image guided biopsy of the left upper chest wall was scheduled, but the patient ultimately elected not to proceed with the biopsy. His major complaint is increasing pain in the area. He was recently prescribed Percocet with moderate relief. Other than pain in his left upper chest wall he feels about the same. Chronic shortness of breath is unchanged. No headaches or neurological symptoms. MEDICATIONS: Current Outpatient Medications Medication Sig oxyCODONE-acetaminophen (PERCOCET) 5-325 mg tablet Take 1-2 tablets by mouth every 4 hours as needed for pain. methylPREDNISolone (MEDROL DOSE-PACK) 4 mg Dose-Pack Take by mouth as directed. Per package instructions predniSONE (DELTASONE) 10 mg tablet Take 1 tablet by mouth once daily. Take 2 daily x 1 week, then 1 daily x 1 week albuterol (PROVENTIL) 2.5 mg /3 mL (0.083 %) nebulizer solution Use 2.5 mg via nebulizer. ipratropium-albuterol (DUONEB) 0.5 mg-3 mg(2.5 mg base)/3 mL nebu Inhale 3 mL as instructed every 6 hours as needed for wheezing/shortness of breath. traMADol (ULTRAM) 50 mg tablet Take 1 tablet by mouth every 4 hours as needed for pain. Nebulizer and Compressor For Neb 1 Each as needed. Use as directed. STIOLTO RESPIMAT 2.5-2.5 mcg/actuation INHALE TWO (2) PUFFS BY MOUTH ONCE DAILY mupirocin (BACTROBAN) 2 % ointment mupirocin 2 % topical ointment APPLY TO THE AFFECTED AREA(S) THREE TIMES DAILY NEEDED metoprolol tartrate, short acting, (LOPRESSOR) 25 mg tablet Take 50 mg by mouth twice daily. isosorbide mononitrate ER (IMDUR) 30 mg 24 hr tablet Take 30 mg by mouth once daily. ondansetron (ZOFRAN) 8 mg tablet Take 1 tablet by mouth every 8 hours as needed for nausea/vomiting. cilostazol (PLETAL) 100 mg tablet Take 1 tablet by mouth twice daily. clopidogrel (PLAVIX) 75 mg tablet Take 1 tablet by mouth once daily. aspirin 81 mg chewable tablet Take 81 mg by mouth once daily. albuterol HFA (PROVENTIL HFA, VENTOLIN HFA) 90 mcg/actuation inhaler albuterol sulfate HFA 90 mcg/actuation aerosol inhaler INHALE 2 PUFFS BY MOUTH EVERY 4 HOURS NEEDED for SHORTNESS OF BREATH atorvastatin (LIPITOR) 40 mg tablet Take 40 mg by mouth once daily. No current facility-administered medications for this visit. ALLERGIES: ALLERGIES No Known Allergies PAST MEDICAL HISTORY: PAST MEDICAL HISTORY Diagnosis Date Carotid artery disease (HCC) bilateral COPD (chronic obstructive pulmonary disease) (HCC) Heart attack (HCC) History of non-ST elevation myocardial infarction (NSTEMI) HTN (hypertension) Hypertension 09/25/2021 Lung cancer (HCC) Malignant neoplasm of lower lobe of left lung (HCC) Peripheral arterial disease (HCC) 2019 R REGISTRATION COORDINATOR stent PAST SURGICAL HISTORY: PAST SURGICAL HISTORY Procedure Laterality Date BACK SURGERY HX 2019 CABG (4) VEIN GRAFTS & ARTERIAL GRAFT(S) 2016 LOWER EXTREMITY FUNNEL SETTER W/WO STENT Right 2019 right common femoral artery stent REMOVAL OF LUNG,LOBECTOMY Left 09/26/2021 VATS left upper lung wedge resection, completion lobectomy, lymph node dissection, application of Progel to staple line, intercostal nerve blocks for cancer FAMILY HISTORY: FAMILY HISTORY Problem Relation Age of Onset Lung Cancer Father Heart Attack Father Coronary Artery Disease Father SOCIAL HISTORY: Social History Tobacco Use Smoking status: Former Packs/day: 2.00 Years: 50.00 Pack years: 100.00 Types: Cigarettes Start date: 1970 Passive exposure: Past Smokeless tobacco: Never Tobacco comments: was smoking on and off fully quit 09/14/21 Substance Use Topics Alcohol use: Yes Alcohol/week: 30.0 standard drinks Types: 30 Cans of Beer (12oz) per week Comment: 4-9 beers per day Drug use: Never REVIEW OF SYSTEMS: General: No weight loss, malaise or fevers. Positive fatigue. HEENT: Negative for frequent or significant headaches. No changes in hearing or vision, no nose bleeds or other nasal problems Respiratory: Negative for wheezing. Chronic shortness of breath. Positive cough. Cardiovascular: Negative for chest pain, leg swelling or palpitations. GI: Negative for abdominal discomfort, blood in stools or black stools or change in bowel habits. Positive constipation. : No history of dysuria, frequency or incontinence. Musculoskeletal: Negative for joint pain or swelling, back pain and muscle pain. Skin: Negative for lesions and itching. Positive rash- Improving. Hematology/Lymphology: Negative for prolonged bleeding, bruising easily or swollen nodes. Neuro: No history of headaches, syncope, paralysis, seizures or tremors. PHYSICAL EXAM: BP 129/79 Pulse 92 Temp 36.6 C (97.9 F) (Temporal) Resp 16 Ht 169.7 cm (5' 6.8 ) Wt 61.2 kg (135 lb) SpO2 97% BMI 21.27 kg/m ECOG 0 Exam limited to gross visualization where appropriate due to COVID-19. Gen.: This is an age-appropriate patient in no acute distress. Head: Appears atraumatic with no visible lesions. Eyes: Pupils equally round and reactive to light, extraocular muscles are intact. Neck: Supple. Mouth: Masked. Respiratory: Appears to be respiring comfortably. Neurologic: Nonfocal to gross visualization. Alert and oriented 3. Psychiatric: No evidence of inappropriate anxiety or depression. Skin: Visible areas of skin without lesions, wounds or petechiae. Positive rash- mainly involving face and upper back. 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 - Visceral pleural invasion present. - Tumor invades into parietal pleural/chest wall adipose tissue. - Arterial invasion present. - Five hilar/peribronchial lymph nodes, negative for tumor (0/5). - Emphysema with patchy smoking-related interstitial fibrosis. - Margins negative. Molecular markers: RET rearrangement negative, ROS1 negative, BRAF negative, EGFR negative, HER-2 negative, KRAS c34G>T positive, ALK 1 negative, PD-L1 95% LABS: Hemoglobin (g/dL) Date Value 10/21/2022 13.3 07/03/2021 14.2 Hematocrit (%) Date Value 10/21/2022 39.7 07/03/2021 41.8 WBC (k/uL) Date Value 10/21/2022 6.50 07/03/2021 5.83 Platelet Count (k/uL) Date Value 10/21/2022 237 07/03/2021 265 RADIOLOGY/OTHER STUDIES: 10/10/2022 PET scan IMPRESSION: 1. Neck: hypermetabolic focus in the right tonsillar/parapharyngeal region, similar to prior. 2. Chest: Hypermetabolic left subpectoral region mass. Hypermetabolic bilateral lung nodules. Findings concerning for progression of neoplastic process. 3. Abdomen and pelvis: No evidence of FDG avid neoplastic process 4. Skeleton: No hypermetabolic osseous lesions 09/17/2022 CT chest IMPRESSION: 1. Multiple new and enlarging bilateral pulmonary nodules, highly suspicious for progression of disease. 2. No evidence of new bulky intrathoracic lymphadenopathy. 09/17/2022 CT abdomen/pelvis IMPRESSION: 1. No evidence of abdominal or pelvic metastatic disease. 2. Findings compatible with a subcapsular hematoma within the spleen. 3. No evidence of abdominal or pelvic lymphadenopathy. 06/14/2022 CT Chest IMPRESSION: 1. Several indeterminate subcentimeter nodular opacities measuring up to 7 mm, new since 09/25/21. Consider interval follow-up. 2. Other noncalcified subcentimeter nodular opacities measuring less than 5 mm, stable. 3. New trace loculated left pleural effusion, most likely related to postoperative change. 06/11/2022 Chest xray IMPRESSION: A small loculated left pleural effusion is felt to have progressed in size from the prior study, as above. 04/12/2022 Bone scan ([facility]) Degenerative findings. No evidence of metastatic disease. 05/23/2022 MRI Lumbar Spine Impression: Heterogeneous appearance of the vertebral bodies stable from the prior exam, nonspecific. No enhancing mass. Mild to moderate discogenic changes L2-S1 grossly stable. For minimal stenosis at several levels as detailed. 10/31/2021 Brain MRI IMPRESSION: No evidence of an acute intracranial process. No intracranial enhancing lesion to suggest metastasis. 09/25/2021 CT chest IMPRESSION: Increased peripheral left upper lobe mass with adjacent curvilinear scarlike opacity concerning for neoplasm. No other acute thoracic disease. 07/11/2021 CT neck IMPRESSION: ASYMMETRIC HIGH DENSITY WITH ILL-DEFINED MARGINS INVOLVING THE ANTERIOR ASPECT OF THE RIGHT PALATINE TONSIL WITHOUT ASSOCIATED NODULARITY. THIS IS A NONSPECIFIC FINDING AND MAY REFLECT HYPEREMIA FROM TONSILLITIS. THIS CORRESPONDS TO THE LOCATION OF FDG ACTIVITY ON THE PRIOR PET/CT EXAM. INTERVAL FOLLOW-UP IMAGING AND/OR DIRECT VISUALIZATION MAY BE OF BENEFIT TO EXCLUDE UNDERLYING SUBTLE MASS. MODERATE DEGENERATIVE CHANGES INVOLVING THE CERVICAL SPINE. MODERATE ATHEROSCLEROSIS AT THE CAROTID BIFURCATIONS. PARANASAL SINUS MUCOSAL THICKENING/SECRETIONS, DESCRIBED ABOVE. SMALL MILLIMETRIC LYMPH NODES SEEN AT SOME NECK LEVELS, NONE SIGNIFICANTLY ENLARGED BY IMAGING SIZE CRITERIA. IMPRESSION: ASYMMETRIC HIGH DENSITY WITH ILL-DEFINED MARGINS INVOLVING THE ANTERIOR ASPECT OF THE RIGHT PALATINE TONSIL WITHOUT ASSOCIATED NODULARITY. THIS IS A NONSPECIFIC FINDING AND MAY REFLECT HYPEREMIA FROM TONSILLITIS. THIS CORRESPONDS TO THE LOCATION OF FDG ACTIVITY ON THE PRIOR PET/CT EXAM. INTERVAL FOLLOW-UP IMAGING AND/OR DIRECT VISUALIZATION MAY BE OF BENEFIT TO EXCLUDE UNDERLYING SUBTLE MASS. MODERATE DEGENERATIVE CHANGES INVOLVING THE CERVICAL SPINE. MODERATE ATHEROSCLEROSIS AT THE CAROTID BIFURCATIONS. PARANASAL SINUS MUCOSAL THICKENING/SECRETIONS, DESCRIBED ABOVE. SMALL MILLIMETRIC LYMPH NODES SEEN AT SOME NECK LEVELS, NONE SIGNIFICANTLY ENLARGED BY IMAGING SIZE CRITERIA. / CT neck 05/28/2021 PET scan IMPRESSION: 1. NECK: * FDG avid soft tissue mass in the right tonsil region could represent tonsillitis versus neoplastic process. Correlate with ENT exam. 2. CHEST: * Enlarging left upper lobe nodule measuring 2.7 x 1.8 cm with max SUV of 4.8 suspicious for neoplasm. No mediastinal or hilar lymphadenopathy. 3. ABDOMEN/PELVIS: * No FDG avid neoplastic process. . 4. EXTREMITIES/SKELETON: * No suspicious FDG avid osseous lesion. ASSESSMENT/PLAN: 1. 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 Status post left upper lobectomy and mediastinal lymphadenectomy 09/26/2021. The primary tumor involved the visceral and parietal pleura with evidence of invasion into the chest wall adipose tissue. Surgical margins negative. Postop it was recommended the patient receive adjuvant chemotherapy with cisplatin plus pemetrexed x4 cycles. He received his first cycle on 10/26/2021, and it was complicated by renal dysfunction. Subsequently the patient's treatment was changed to carboplatin plus pemetrexed. He completed his fourth cycle on 01/22/2022. After completing chemotherapy the patient received adjuvant radiation therapy 03/26/2022 - 05/01/2022 (5400 cGy in 27 fractions). August 2022 the patient developed increasing cough and shortness of breath. Staging CT scans 09/17/2022 revealed multiple bilateral pulmonary nodules, suspicious for metastases. PET scan 10/10/2022 revealed a hypermetabolic mass in the left subpectoral region plus bilateral pulmonary nodules consistent with metastatic disease. Biopsy was recommended but the patient declined. Currently he is experiencing increasing pain in the left upper chest wall. After much discussion we have elected to start systemic therapy with pembrolizumab, with plans to give every 3 weeks. He will receive cycle 1 today. Return in 10 days for follow-up and labs. He will also be referred to radiation oncology to evaluate for palliative radiation to left upper chest wall. 2. Centrilobular emphysema (HCC) - ICD9: 492.8, ICD10: J43.2 Long history of tobacco abuse, quit September 2021. The patient has chronic shortness of breath and cough secondary to COPD. 3. Coronary artery disease Status post AMI 2016. Status post CABG x 4 in [place] 2015. Currently stable. Continue management per PCP/cardiology. 4. Peripheral vascular disease Status post balloon angioplasty right lower leg 2019. On long-term antiplatelet agents with Plavix and Pletal. Continue management per PCP/vascular surgery. 5. Abnormal right tonsil on PET scan (05/28/2021) and neck CT (07/11/2021). Radiographic abnormalities identified on baseline PET scan and neck CT. The patient was seen by [facility] on 07/26/2021, and clinical evaluation most consistent with inflammatory/post-infectious findings. No suspicion for malignancy. The patient apparently chews tobacco, and was advised to discontinue. He will follow-up with ENT as indicated. 6. Cancer related pain Severe pain left upper chest wall since August 2022. Currently on Percocet with moderate relief. Will consider referral to [facility] palliative medicine if symptoms persist. Pito Grigsby MD documented in this encounter [facility] 10-21-2022 History of Present illness Narrative RICCARDOPEDRO [id number] 10/21/2022 [facility] Radiation Oncology Department SIMULATION NOTE DATE OF SIMULATION: 10/21/2022 THERAPIST: Elizabeth Severino MACHINE: u.sit mCT DIAGNOSIS: Malignant neoplasm of upper lobe, left bronchus or lungC34.12 AREA: LUNG CONTRAST: None Consent in Epic: Yes PATIENT POSITION: Supine. FIXATION DEVICE: In order to achieve accurate and reproducible treatments, the patient is immobilized with ORFIT AIO, 4DCT SCANS TAKEN. A time-out was conducted and recorded by the therapist. CT scan was completed for target localization and planning. Field arrangement will be determined after plan has been completed. The patient is scheduled for a verification simulation on the treatment machine to ensure proper set-up and field arrangement is correct prior to the first treatment of primary and boost hall if applicable. Patient education will be completed per nursing. Electronically Signed Deon Limon M.D. / GABRIELLE 34:40 PM documented in this encounter [facility] 10-21-2022 History of Present illness Narrative PEDRO GU [id number] 10/21/2022 [facility] Department of Radiation Oncology Treatment Planning Note For reasons stated in the consult note, Pedro Gu is a candidate for radiation therapy. Based on review and interpretation of the relevant diagnostic studies together with the exam findings, Pedro Gu was simulated on 10/21/2022 at which time the target volume and/or requisite hall were delineated, as indicated in the simulation note, to be treated according to the prescription. After reviewing the treatment plan with dosimetry, the plan was approved to deliver the prescribed course of radiation to the target area to allow for the best isodose distribution, treating to the 98% isodose line with 6MV and 2 hall. Custom MLC for IMRT were the treatment device used to shape/modify the beams. IMRT planning was used because it best met the dose/volume constraints for the organs at risk for this patient, better than what could be achieved using conventional or 3D planning. The specific dose requirements for the PTV, organs at risk and dose-volume histograms are contained in this treatment plan and/or elsewhere in the medical record. A completed summary of this plan dated 10-24-22 incorporated herein by reference includes dose, beam arrangements, energy, blocking, isodose distribution, and/or ports and DVH. Electronically Signed Deon Limon M.D. 33:29 PM documented in this encounter [facility] 10-18-2022 Miscellaneous Notes Patient has an OTV appointment on 10/21. Please place lab orders. Yani Singer documented in this encounter [facility] 10-18-2022 Miscellaneous Notes Appointments have been scheduled and patient has been notified by Alexandria Rivera Thank you! Lisa Figueroa Clerical: Spoke w/ Rachel Dominguez. She will be coming up to talk w/ you regarding his appointments. Thanks! Denita Rai RN Please set up appointment Friday or Friday to start pembrolizumab. Also appointment Dr. Limon to evaluate for palliative radiation. Pt notified of script. BRM: Pt does not wish to wait for biopsy. Wants to start treatment JATINDER. Denita Rai RN Discussed w/ Dr Grigsby who recommends Percocet 1-2 q 4 hours prn. BRM: Script pended. Denita Rai RN Records requested and received. Given to Brent to review. Denita Rai RN Please obtain ER reports. Thanks, Brent Miller APRN.RN DERMATOLOGY Pt c/o intolerable pain in his left chest, shoulder and arm. Rates his pain 9-10/10. Describes as a constant aching pain. Was seen recently in the ER and prescribed a medrol dose pack. Pt notes the medrol tore up his stomach. Has old scripts of Oxycodone and [place] at home. Took one dose of each w/ very little relief. What do you advise for his pain? Denita Rai RN documented in this encounter [facility] 10-15-2022 Miscellaneous Notes Clerical: Can you assist w/ this? Denita Rai RN I spoke to the thoracic radiology IR physicians, and they suggested that we arrange for a musculoskeletal (MSK) biopsy. This is a different team. I put an order in, but not sure that is the appropriate one. Please investigate how to arrange the MSK/chest wall biopsy. Jeannie B .. RADIOLOGIST REQUEST / DENIAL FORM STAFF RADIOLOGIST: PROCEDURE: Not Approved (reason) DO NOT SCHEDULE -- See Notes NOTES: Hx of NSCLCa Multiple indeterminate lung nodules, the great majority less than 1 cm in size The only nodule large enough for attempted biopsy (RLL, 12 x 8 mm) is still relatively small and awkwardly positioned adjacent to the major fissure and close to the diaphragm. Patient also has moderate degree of emphysema, increasing likelihood of persistent PTX Suggest considering transbronchial biopsy of hypermetabolic hilar LN's, particularly on the left STAFF SIGNATURE: Joellen Jacome MD DATE: October 15, 2022 TIME: 11:32 AM BX. COORDINATOR INFORMATION LAB RESULTS: PT INR (no units) Date Value 07/17/2021 0.9 INR (no units) Date Value 09/26/2021 1.0 APTT (sec) Date Value 09/25/2021 27.3 Platelet Count (k/uL) Date Value 09/23/2022 332 07/03/2021 265 Current Outpatient Medications Medication Sig methylPREDNISolone (MEDROL DOSE-PACK) 4 mg Dose-Pack Take by mouth as directed. Per package instructions predniSONE (DELTASONE) 10 mg tablet Take 1 tablet by mouth once daily. Take 2 daily x 1 week, then 1 daily x 1 week albuterol (PROVENTIL) 2.5 mg /3 mL (0.083 %) nebulizer solution Use 2.5 mg via nebulizer. ipratropium-albuterol (DUONEB) 0.5 mg-3 mg(2.5 mg base)/3 mL nebu Inhale 3 mL as instructed every 6 hours as needed for wheezing/shortness of breath. traMADol (ULTRAM) 50 mg tablet Take 1 tablet by mouth every 4 hours as needed for pain. Nebulizer and Compressor For Neb 1 Each as needed. Use as directed. STIOLTO RESPIMAT 2.5-2.5 mcg/actuation INHALE TWO (2) PUFFS BY MOUTH ONCE DAILY mupirocin (BACTROBAN) 2 % ointment mupirocin 2 % topical ointment APPLY TO THE AFFECTED AREA(S) THREE TIMES DAILY NEEDED metoprolol tartrate, short acting, (LOPRESSOR) 25 mg tablet Take 50 mg by mouth twice daily. isosorbide mononitrate ER (IMDUR) 30 mg 24 hr tablet Take 30 mg by mouth once daily. ondansetron (ZOFRAN) 8 mg tablet Take 1 tablet by mouth every 8 hours as needed for nausea/vomiting. cilostazol (PLETAL) 100 mg tablet Take 1 tablet by mouth twice daily. clopidogrel (PLAVIX) 75 mg tablet Take 1 tablet by mouth once daily. aspirin 81 mg chewable tablet Take 81 mg by mouth once daily. albuterol HFA (PROVENTIL HFA, VENTOLIN HFA) 90 mcg/actuation inhaler albuterol sulfate HFA 90 mcg/actuation aerosol inhaler INHALE 2 PUFFS BY MOUTH EVERY 4 HOURS NEEDED for SHORTNESS OF BREATH atorvastatin (LIPITOR) 40 mg tablet Take 40 mg by mouth once daily. No current facility-administered medications for this visit. ALLERGIES No Known Allergies FILMS SENT TO WORKSTATION: GUIDELINES FOR HOLDING ANTI-PLATELET AND ANTI- COAGULATION THERAPY: Hold Plavix for 5 days and Pletal for 48 hours prior to procedure if ok with doctor NURSE SIGNATURE: Treva Vanessa LPN DATE: October 15, 2022 TIME: 10:14 AM RADIOLOGY CALL CENTER INTAKE SALES SERVICE ASSISTANT: BIBI EXT: [id number] DATE: 10/15/2022 TIME: 10:01AM TRACKING #. [id number] REQUESTING PERSON: Alexandria PHONE/PAGER: [phone] REQUESTING STAFF: Jaydon Grigsby MD PHONE/PAGER: [phone] SPECIFICS OF THE REQUEST: (Please be as detailed as possible. If request is lymph node biopsy, specify LOCATION of the node if possible): IMAGING GUIDED BIOPSY LUNG ] SPECIAL REQUESTS: TISSUE SAMPLE, LABWORK: Routine Evaluation -Fine needle aspiration (FNA), core biopsy, no preference, unsure, specific processing request for pathology (For example: send for ER, ND, HER2/sarah or possible lymphoma send in RPMI solution ) IS THIS REQUEST PART OF A RESEARCH PROTOCOL: No IF YES: List specifics of request and name/contact number of research coordinator and primary physician. MEDICAL DIAGNOSIS: Malignant neoplasm of upper lobe of left lung (HCC) [C34.12] TYPE AND DATE OF THE EXAM THAT IS THE BASIS OF THE REQUEST: PET Scan 10/10/2022 CT Date: 09/17/2022 (Note: Requests for random organ biopsies, specifically liver and kidney random biopsies do not need imaging. 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 If a percutaneous biopsy or drainage is not felt to be safe or an alternative method for establishing a diagnosis is possible, this will be discussed directly with the requesting physician. documented in this encounter [facility] 10-15-2022 History of Present illness Narrative PATIENT NAME: Pedro Gu DATE: 10/15/2022 PRIMARY CARE PHYSICIAN: Dr. Christina Azul OTHER PHYSICIANS: Dr. Umur Dr. Marianne Whelan, Dr. Limon Portions of this encounter note have been copied from the note from 09/23/2022 and has been updated where appropriate, and reflect my current medical decision making from today. CC: This is a 67 year old male with a history of lung cancer, seen for scheduled follow-up. INTERIM HISTORY: Since the patient's last visit here he underwent a PET scan on 10/10/2022, which unfortunately revealed several abnormalities consistent with recurrent disease. Since the patient's last visit here he has developed increased pain in his left upper chest wall radiating to his left shoulder. He was seen at [facility] ER on 10/09/2022 and given a Medrol Dosepak which helped the pain somewhat. He has no other areas of pain. Chronic shortness of breath is unchanged. No cough or hemoptysis. MEDICATIONS: Current Outpatient Medications Medication Sig predniSONE (DELTASONE) 10 mg tablet Take 1 tablet by mouth once daily. Take 2 daily x 1 week, then 1 daily x 1 week albuterol (PROVENTIL) 2.5 mg /3 mL (0.083 %) nebulizer solution Use 2.5 mg via nebulizer. ipratropium-albuterol (DUONEB) 0.5 mg-3 mg(2.5 mg base)/3 mL nebu Inhale 3 mL as instructed every 6 hours as needed for wheezing/shortness of breath. traMADol (ULTRAM) 50 mg tablet Take 1 tablet by mouth every 4 hours as needed for pain. Nebulizer and Compressor For Neb 1 Each as needed. Use as directed. STIOLTO RESPIMAT 2.5-2.5 mcg/actuation INHALE TWO (2) PUFFS BY MOUTH ONCE DAILY mupirocin (BACTROBAN) 2 % ointment mupirocin 2 % topical ointment APPLY TO THE AFFECTED AREA(S) THREE TIMES DAILY NEEDED metoprolol tartrate, short acting, (LOPRESSOR) 25 mg tablet Take 50 mg by mouth twice daily. isosorbide mononitrate ER (IMDUR) 30 mg 24 hr tablet Take 30 mg by mouth once daily. ondansetron (ZOFRAN) 8 mg tablet Take 1 tablet by mouth every 8 hours as needed for nausea/vomiting. cilostazol (PLETAL) 100 mg tablet Take 1 tablet by mouth twice daily. clopidogrel (PLAVIX) 75 mg tablet Take 1 tablet by mouth once daily. aspirin 81 mg chewable tablet Take 81 mg by mouth once daily. albuterol HFA (PROVENTIL HFA, VENTOLIN HFA) 90 mcg/actuation inhaler albuterol sulfate HFA 90 mcg/actuation aerosol inhaler INHALE 2 PUFFS BY MOUTH EVERY 4 HOURS NEEDED for SHORTNESS OF BREATH atorvastatin (LIPITOR) 40 mg tablet Take 40 mg by mouth once daily. No current facility-administered medications for this visit. ALLERGIES: ALLERGIES No Known Allergies PAST MEDICAL HISTORY: PAST MEDICAL HISTORY Diagnosis Date Carotid artery disease (HCC) bilateral COPD (chronic obstructive pulmonary disease) (HCC) Heart attack (HCC) History of non-ST elevation myocardial infarction (NSTEMI) HTN (hypertension) Hypertension 09/25/2021 Lung cancer (HCC) Malignant neoplasm of lower lobe of left lung (HCC) Peripheral arterial disease (HCC) 2019 R REGISTRATION COORDINATOR stent PAST SURGICAL HISTORY: PAST SURGICAL HISTORY Procedure Laterality Date BACK SURGERY HX 2019 CABG (4) VEIN GRAFTS & ARTERIAL GRAFT(S) 2016 LOWER EXTREMITY FUNNEL SETTER W/WO STENT Right 2019 right common femoral artery stent REMOVAL OF LUNG,LOBECTOMY Left 09/26/2021 VATS left upper lung wedge resection, completion lobectomy, lymph node dissection, application of Progel to staple line, intercostal nerve blocks for cancer FAMILY HISTORY: FAMILY HISTORY Problem Relation Age of Onset Lung Cancer Father Heart Attack Father Coronary Artery Disease Father SOCIAL HISTORY: Social History Tobacco Use Smoking status: Former Packs/day: 2.00 Years: 50.00 Pack years: 100.00 Types: Cigarettes Start date: 1970 Passive exposure: Past Smokeless tobacco: Never Tobacco comments: was smoking on and off fully quit 09/14/21 Substance Use Topics Alcohol use: Yes Alcohol/week: 30.0 standard drinks Types: 30 Cans of Beer (12oz) per week Comment: 4-9 beers per day Drug use: Never REVIEW OF SYSTEMS: General: No weight loss, malaise or fevers. Positive fatigue. HEENT: Negative for frequent or significant headaches. No changes in hearing or vision, no nose bleeds or other nasal problems Respiratory: Negative for wheezing. Chronic shortness of breath. Positive cough. Cardiovascular: Negative for chest pain, leg swelling or palpitations. GI: Negative for abdominal discomfort, blood in stools or black stools or change in bowel habits. Positive constipation. : No history of dysuria, frequency or incontinence. Musculoskeletal: Negative for joint pain or swelling, back pain and muscle pain. Skin: Negative for lesions and itching. Positive rash- Improving. Hematology/Lymphology: Negative for prolonged bleeding, bruising easily or swollen nodes. Neuro: No history of headaches, syncope, paralysis, seizures or tremors. PHYSICAL EXAM: BP 158/89 Pulse 68 Temp 36.1 C (97 F) (Temporal) Resp 16 Ht 167.6 cm (5' 5.98 ) Wt 60.6 kg (133 lb 9.6 oz) SpO2 94% BMI 21.57 kg/m ECOG 0 Exam limited to gross visualization where appropriate due to COVID-19. Gen.: This is an age-appropriate patient in no acute distress. Head: Appears atraumatic with no visible lesions. Eyes: Pupils equally round and reactive to light, extraocular muscles are intact. Neck: Supple. Mouth: Masked. Respiratory: Appears to be respiring comfortably. Neurologic: Nonfocal to gross visualization. Alert and oriented 3. Psychiatric: No evidence of inappropriate anxiety or depression. Skin: Visible areas of skin without lesions, wounds or petechiae. Positive rash- mainly involving face and upper back. PATHOLOGY: 09/26/2021 Left upper lobectomy and mediastinal lymphadenectomy A, H. 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 - Visceral pleural invasion present. - Tumor invades into parietal pleural/chest wall adipose tissue. - Arterial invasion present. - Five hilar/peribronchial lymph nodes, negative for tumor (0/5). - Emphysema with patchy smoking-related interstitial fibrosis. - Margins negative. B. Lymph node, level 10L, excision: - Negative for tumor (0/1). C. Lymph node, level 5, excision: - Negative for tumor (0/1). D. Lymph node, level 6, excision: - Negative for tumor (0/1). E. Lymph node, level 11L, excision: - Negative for tumor (0/1). F. Lymph node, level 12L, excision: - Negative for tumor (0/1). G. Lymph node, level 11L #2, excision: - Negative for tumor (0/1). I. Lymph node, level 11L #3, excision: - Negative for tumor (0/1). J. Lymph node, level 9L, excision: - Benign fibroadipose tissue, negative for tumor. Molecular markers: RET rearrangement negative, ROS1 negative, BRAF negative, EGFR negative, HER-2 negative, KRAS c34G>T positive, ALK 1 negative, PD-L1 95% LABS: Hemoglobin (g/dL) Date Value 09/23/2022 12.1 07/03/2021 14.2 Hematocrit (%) Date Value 09/23/2022 35.9 07/03/2021 41.8 WBC (k/uL) Date Value 09/23/2022 4.69 07/03/2021 5.83 Platelet Count (k/uL) Date Value 09/23/2022 332 07/03/2021 265 RADIOLOGY/OTHER STUDIES: 10/10/2022 PET scan IMPRESSION: 1. Neck: hypermetabolic focus in the right tonsillar/parapharyngeal region, similar to prior. 2. Chest: Hypermetabolic left subpectoral region mass. Hypermetabolic bilateral lung nodules. Findings concerning for progression of neoplastic process. 3. Abdomen and pelvis: No evidence of FDG avid neoplastic process 4. Skeleton: No hypermetabolic osseous lesions 09/17/2022 CT chest IMPRESSION: 1. Multiple new and enlarging bilateral pulmonary nodules, highly suspicious for progression of disease. 2. No evidence of new bulky intrathoracic lymphadenopathy. 09/17/2022 CT abdomen/pelvis IMPRESSION: 1. No evidence of abdominal or pelvic metastatic disease. 2. Findings compatible with a subcapsular hematoma within the spleen. 3. No evidence of abdominal or pelvic lymphadenopathy. 06/14/2022 CT Chest IMPRESSION: 1. Several indeterminate subcentimeter nodular opacities measuring up to 7 mm, new since 09/25/21. Consider interval follow-up. 2. Other noncalcified subcentimeter nodular opacities measuring less than 5 mm, stable. 3. New trace loculated left pleural effusion, most likely related to postoperative change. 06/11/2022 Chest xray IMPRESSION: A small loculated left pleural effusion is felt to have progressed in size from the prior study, as above. 04/12/2022 Bone scan ([facility]) Degenerative findings. No evidence of metastatic disease. 05/23/2022 MRI Lumbar Spine Impression: Heterogeneous appearance of the vertebral bodies stable from the prior exam, nonspecific. No enhancing mass. Mild to moderate discogenic changes L2-S1 grossly stable. For minimal stenosis at several levels as detailed. 10/31/2021 Brain MRI IMPRESSION: No evidence of an acute intracranial process. No intracranial enhancing lesion to suggest metastasis. 09/25/2021 CT chest IMPRESSION: Increased peripheral left upper lobe mass with adjacent curvilinear scarlike opacity concerning for neoplasm. No other acute thoracic disease. 07/11/2021 CT neck IMPRESSION: ASYMMETRIC HIGH DENSITY WITH ILL-DEFINED MARGINS INVOLVING THE ANTERIOR ASPECT OF THE RIGHT PALATINE TONSIL WITHOUT ASSOCIATED NODULARITY. THIS IS A NONSPECIFIC FINDING AND MAY REFLECT HYPEREMIA FROM TONSILLITIS. THIS CORRESPONDS TO THE LOCATION OF FDG ACTIVITY ON THE PRIOR PET/CT EXAM. INTERVAL FOLLOW-UP IMAGING AND/OR DIRECT VISUALIZATION MAY BE OF BENEFIT TO EXCLUDE UNDERLYING SUBTLE MASS. MODERATE DEGENERATIVE CHANGES INVOLVING THE CERVICAL SPINE. MODERATE ATHEROSCLEROSIS AT THE CAROTID BIFURCATIONS. PARANASAL SINUS MUCOSAL THICKENING/SECRETIONS, DESCRIBED ABOVE. SMALL MILLIMETRIC LYMPH NODES SEEN AT SOME NECK LEVELS, NONE SIGNIFICANTLY ENLARGED BY IMAGING SIZE CRITERIA. IMPRESSION: ASYMMETRIC HIGH DENSITY WITH ILL-DEFINED MARGINS INVOLVING THE ANTERIOR ASPECT OF THE RIGHT PALATINE TONSIL WITHOUT ASSOCIATED NODULARITY. THIS IS A NONSPECIFIC FINDING AND MAY REFLECT HYPEREMIA FROM TONSILLITIS. THIS CORRESPONDS TO THE LOCATION OF FDG ACTIVITY ON THE PRIOR PET/CT EXAM. INTERVAL FOLLOW-UP IMAGING AND/OR DIRECT VISUALIZATION MAY BE OF BENEFIT TO EXCLUDE UNDERLYING SUBTLE MASS. MODERATE DEGENERATIVE CHANGES INVOLVING THE CERVICAL SPINE. MODERATE ATHEROSCLEROSIS AT THE CAROTID BIFURCATIONS. PARANASAL SINUS MUCOSAL THICKENING/SECRETIONS, DESCRIBED ABOVE. SMALL MILLIMETRIC LYMPH NODES SEEN AT SOME NECK LEVELS, NONE SIGNIFICANTLY ENLARGED BY IMAGING SIZE CRITERIA. CT neck 05/28/2021 PET scan IMPRESSION: 1. NECK: * FDG avid soft tissue mass in the right tonsil region could represent tonsillitis versus neoplastic process. Correlate with ENT exam. 2. CHEST: * Enlarging left upper lobe nodule measuring 2.7 x 1.8 cm with max SUV of 4.8 suspicious for neoplasm. No mediastinal or hilar lymphadenopathy. 3. ABDOMEN/PELVIS: * No FDG avid neoplastic process. . 4. EXTREMITIES/SKELETON: * No suspicious FDG avid osseous lesion. ASSESSMENT/PLAN: 1. 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 Status post left upper lobectomy and mediastinal lymphadenectomy 09/26/2021. The primary tumor involved the visceral and parietal pleura with evidence of invasion into the chest wall adipose tissue. Surgical margins negative. Postop it was recommended the patient receive adjuvant chemotherapy with cisplatin plus pemetrexed x4 cycles. He received his first cycle on 10/26/2021, and it was complicated by renal dysfunction. Subsequently the patient's treatment was changed to carboplatin plus pemetrexed. He completed his fourth cycle on 01/22/2022. After completing chemotherapy the patient received adjuvant radiation therapy 03/26/2022 - 05/01/2022 (5400 cGy in 27 fractions). August 2022 the patient developed increasing cough and shortness of breath. Staging CT scans 09/17/2022 revealed multiple bilateral pulmonary nodules, suspicious for metastases. PET scan 10/10/2022 revealed a hypermetabolic mass in the left subpectoral region plus bilateral pulmonary nodules consistent with metastatic disease. Options for further management were discussed at length. We elected to refer to [facility] interventional radiology to evaluate for biopsy of the left subpectoral mass. If not feasible we would then consider referral to interventional pulmonology to evaluate for an EBUS biopsy. If metastatic disease is confirmed systemic treatment will be recommended. If the PD-L1 is significant elevated I would recommend single agent pembrolizumab. We will arrange for the biopsy as soon as possible. I will schedule a temporary return visit here in 2 weeks for follow-up and treatment. 2. Centrilobular emphysema (HCC) - ICD9: 492.8, ICD10: J43.2 Long history of tobacco abuse, quit September 2021. The patient has chronic shortness of breath and cough secondary to COPD. 3. Coronary artery disease Status post AMI 2015. Status post CABG x 4 in [place] 2015. Currently stable. Continue management per PCP/cardiology. 4. Peripheral vascular disease Status post balloon angioplasty right lower leg 2019. On long-term antiplatelet agents with Plavix and Pletal. Continue management per PCP/vascular surgery. 5. Abnormal right tonsil on PET scan (05/28/2021) and neck CT (07/11/2021). Radiographic abnormalities identified on baseline PET scan and neck CT. The patient was seen by [facility]NT on 07/26/2021, and clinical evaluation most consistent with inflammatory/post-infectious findings. No suspicion for malignancy. The patient apparently chews tobacco, and was advised to discontinue. He will follow-up with ENT as indicated. Pito Grigsby MD documented in this encounter [facility] 10-14-2022 Note bmo [facility] 09-23-2022 History of Present illness Narrative PATIENT NAME: Pedro Gu DATE: 09/23/2022 PRIMARY CARE PHYSICIAN: Dr. Christina Azul OTHER PHYSICIANS: Dr. Verito Whelan, Dr. Marianne Fields, Dr. Limon Portions of this encounter note have been copied from the note from 08/20/2022 and has been updated where appropriate, and reflect my current medical decision making from today. CC: This is a 67 year old male with a history of lung cancer, seen for scheduled follow-up. INTERIM HISTORY: Since the patient's last visit here he developed recurrent respiratory symptoms with severe shortness of breath and cough. He was given a second course of Levaquin x7 days starting 09/11/2022, and his breathing has much improved. Currently feels back to baseline. The patient has known peripheral vascular disease, and apparently has noticed worsening claudication involving his left leg. He is due to see his strip machine operator to evaluate for possible left leg vascular surgery. Otherwise the patient has had no significant medical changes. MEDICATIONS: Current Outpatient Medications Medication Sig predniSONE (DELTASONE) 10 mg tablet Take 1 tablet by mouth once daily. Take 2 daily x 1 week, then 1 daily x 1 week albuterol (PROVENTIL) 2.5 mg /3 mL (0.083 %) nebulizer solution Use 2.5 mg via nebulizer. ipratropium-albuterol (DUONEB) 0.5 mg-3 mg(2.5 mg base)/3 mL nebu Inhale 3 mL as instructed every 6 hours as needed for wheezing/shortness of breath. traMADol (ULTRAM) 50 mg tablet Take 1 tablet by mouth every 4 hours as needed for pain. Nebulizer and Compressor For Neb 1 Each as needed. Use as directed. STIOLTO RESPIMAT 2.5-2.5 mcg/actuation INHALE TWO (2) PUFFS BY MOUTH ONCE DAILY mupirocin (BACTROBAN) 2 % ointment mupirocin 2 % topical ointment APPLY TO THE AFFECTED AREA(S) THREE TIMES DAILY NEEDED metoprolol tartrate, short acting, (LOPRESSOR) 25 mg tablet Take 50 mg by mouth twice daily. isosorbide mononitrate ER (IMDUR) 30 mg 24 hr tablet Take 30 mg by mouth once daily. ondansetron (ZOFRAN) 8 mg tablet Take 1 tablet by mouth every 8 hours as needed for nausea/vomiting. cilostazol (PLETAL) 100 mg tablet Take 1 tablet by mouth twice daily. clopidogrel (PLAVIX) 75 mg tablet Take 1 tablet by mouth once daily. aspirin 81 mg chewable tablet Take 81 mg by mouth once daily. albuterol HFA (PROVENTIL HFA, VENTOLIN HFA) 90 mcg/actuation inhaler albuterol sulfate HFA 90 mcg/actuation aerosol inhaler INHALE 2 PUFFS BY MOUTH EVERY 4 HOURS NEEDED for SHORTNESS OF BREATH atorvastatin (LIPITOR) 40 mg tablet Take 40 mg by mouth once daily. No current facility-administered medications for this visit. ALLERGIES: ALLERGIES No Known Allergies PAST MEDICAL HISTORY: PAST MEDICAL HISTORY Diagnosis Date Carotid artery disease (HCC) bilateral COPD (chronic obstructive pulmonary disease) (HCC) Heart attack (HCC) History of non-ST elevation myocardial infarction (NSTEMI) HTN (hypertension) Hypertension 09/25/2021 Lung cancer (HCC) Malignant neoplasm of lower lobe of left lung (HCC) Peripheral arterial disease (HCC) 2019 R REGISTRATION COORDINATOR stent PAST SURGICAL HISTORY: PAST SURGICAL HISTORY Procedure Laterality Date BACK SURGERY HX 2019 CABG (4) VEIN GRAFTS & ARTERIAL GRAFT(S) 2016 LOWER EXTREMITY FUNNEL SETTER W/WO STENT Right 2019 right common femoral artery stent REMOVAL OF LUNG,LOBECTOMY Left 09/26/2021 VATS left upper lung wedge resection, completion lobectomy, lymph node dissection, application of Progel to staple line, intercostal nerve blocks for cancer FAMILY HISTORY: FAMILY HISTORY Problem Relation Age of Onset Lung Cancer Father Heart Attack Father Coronary Artery Disease Father SOCIAL HISTORY: Social History Tobacco Use Smoking status: Former Packs/day: 2.00 Years: 50.00 Pack years: 100.00 Types: Cigarettes Start date: 1970 Passive exposure: Past Smokeless tobacco: Never Tobacco comments: was smoking on and off fully quit 09/14/21 Substance Use Topics Alcohol use: Yes Alcohol/week: 30.0 standard drinks Types: 30 Cans of Beer (12oz) per week Comment: 4-9 beers per day Drug use: Never REVIEW OF SYSTEMS: General: No weight loss, malaise or fevers. Positive fatigue. HEENT: Negative for frequent or significant headaches. No changes in hearing or vision, no nose bleeds or other nasal problems Respiratory: Negative for wheezing. Chronic shortness of breath. Positive cough. Cardiovascular: Negative for chest pain, leg swelling or palpitations. GI: Negative for abdominal discomfort, blood in stools or black stools or change in bowel habits. Positive constipation. : No history of dysuria, frequency or incontinence. Musculoskeletal: Negative for joint pain or swelling, back pain and muscle pain. Skin: Negative for lesions and itching. Positive rash- Improving. Hematology/Lymphology: Negative for prolonged bleeding, bruising easily or swollen nodes. Neuro: No history of headaches, syncope, paralysis, seizures or tremors. PHYSICAL EXAM: BP 113/71 Pulse 85 Temp 36.4 C (97.6 F) (Temporal) Resp 16 Ht 167.6 cm (5' 5.98 ) Wt 60.7 kg (133 lb 12.8 oz) SpO2 96% BMI 21.61 kg/m ECOG 0 Exam limited to gross visualization where appropriate due to COVID-19. Gen.: This is an age-appropriate patient in no acute distress. Head: Appears atraumatic with no visible lesions. Eyes: Pupils equally round and reactive to light, extraocular muscles are intact. Neck: Supple. Mouth: Masked. Respiratory: Appears to be respiring comfortably. Neurologic: Nonfocal to gross visualization. Alert and oriented 3. Psychiatric: No evidence of inappropriate anxiety or depression. Skin: Visible areas of skin without lesions, wounds or petechiae. Positive rash- mainly involving face and upper back. PATHOLOGY: 09/26/2021 Left upper lobectomy and mediastinal lymphadenectomy A, H. 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 - Visceral pleural invasion present. - Tumor invades into parietal pleural/chest wall adipose tissue. - Arterial invasion present. - Five hilar/peribronchial lymph nodes, negative for tumor (0/5). - Emphysema with patchy smoking-related interstitial fibrosis. - Margins negative. B. Lymph node, level 10L, excision: - Negative for tumor (0/1). C. Lymph node, level 5, excision: - Negative for tumor (0/1). D. Lymph node, level 6, excision: - Negative for tumor (0/1). E. Lymph node, level 11L, excision: - Negative for tumor (0/1). F. Lymph node, level 12L, excision: - Negative for tumor (0/1). G. Lymph node, level 11L #2, excision: - Negative for tumor (0/1). I. Lymph node, level 11L #3, excision: - Negative for tumor (0/1). J. Lymph node, level 9L, excision: - Benign fibroadipose tissue, negative for tumor. Molecular markers: RET rearrangement negative, ROS1 negative, BRAF negative, EGFR negative, HER-2 negative, KRAS c34G>T positive, ALK 1 negative, PD-L1 95% LABS: Hemoglobin (g/dL) Date Value 09/23/2022 12.1 07/03/2021 14.2 Hematocrit (%) Date Value 09/23/2022 35.9 07/03/2021 41.8 WBC (k/uL) Date Value 09/23/2022 4.69 07/03/2021 5.83 Platelet Count (k/uL) Date Value 09/23/2022 332 07/03/2021 265 RADIOLOGY/OTHER STUDIES: 09/17/2022 CT chest IMPRESSION: 1. Multiple new and enlarging bilateral pulmonary nodules, highly suspicious for progression of disease. 2. No evidence of new bulky intrathoracic lymphadenopathy. 09/17/2022 CT abdomen/pelvis IMPRESSION: 1. No evidence of abdominal or pelvic metastatic disease. 2. Findings compatible with a subcapsular hematoma within the spleen. 3. No evidence of abdominal or pelvic lymphadenopathy. 06/14/2022 CT Chest IMPRESSION: 1. Several indeterminate subcentimeter nodular opacities measuring up to 7 mm, new since 09/25/21. Consider interval follow-up. 2. Other noncalcified subcentimeter nodular opacities measuring less than 5 mm, stable. 3. New trace loculated left pleural effusion, most likely related to postoperative change. 06/11/2022 Chest xray IMPRESSION: A small loculated left pleural effusion is felt to have progressed in size from the prior study, as above. 04/12/2022 Bone scan ([facility]) Degenerative findings. No evidence of metastatic disease. 05/23/2022 MRI Lumbar Spine Impression: Heterogeneous appearance of the vertebral bodies stable from the prior exam, nonspecific. No enhancing mass. Mild to moderate discogenic changes L2-S1 grossly stable. For minimal stenosis at several levels as detailed. 10/31/2021 Brain MRI IMPRESSION: No evidence of an acute intracranial process. No intracranial enhancing lesion to suggest metastasis. 09/25/2021 CT chest IMPRESSION: Increased peripheral left upper lobe mass with adjacent curvilinear scarlike opacity concerning for neoplasm. No other acute thoracic disease. 07/11/2021 CT neck IMPRESSION: ASYMMETRIC HIGH DENSITY WITH ILL-DEFINED MARGINS INVOLVING THE ANTERIOR ASPECT OF THE RIGHT PALATINE TONSIL WITHOUT ASSOCIATED NODULARITY. THIS IS A NONSPECIFIC FINDING AND MAY REFLECT HYPEREMIA FROM TONSILLITIS. THIS CORRESPONDS TO THE LOCATION OF FDG ACTIVITY ON THE PRIOR PET/CT EXAM. INTERVAL FOLLOW-UP IMAGING AND/OR DIRECT VISUALIZATION MAY BE OF BENEFIT TO EXCLUDE UNDERLYING SUBTLE MASS. MODERATE DEGENERATIVE CHANGES INVOLVING THE CERVICAL SPINE. MODERATE ATHEROSCLEROSIS AT THE CAROTID BIFURCATIONS. PARANASAL SINUS MUCOSAL THICKENING/SECRETIONS, DESCRIBED ABOVE. SMALL MILLIMETRIC LYMPH NODES SEEN AT SOME NECK LEVELS, NONE SIGNIFICANTLY ENLARGED BY IMAGING SIZE CRITERIA. IMPRESSION: ASYMMETRIC HIGH DENSITY WITH ILL-DEFINED MARGINS INVOLVING THE ANTERIOR ASPECT OF THE RIGHT PALATINE TONSIL WITHOUT ASSOCIATED NODULARITY. THIS IS A NONSPECIFIC FINDING AND MAY REFLECT HYPEREMIA FROM TONSILLITIS. THIS CORRESPONDS TO THE LOCATION OF FDG ACTIVITY ON THE PRIOR PET/CT EXAM. INTERVAL FOLLOW-UP IMAGING AND/OR DIRECT VISUALIZATION MAY BE OF BENEFIT TO EXCLUDE UNDERLYING SUBTLE MASS. MODERATE DEGENERATIVE CHANGES INVOLVING THE CERVICAL SPINE. MODERATE ATHEROSCLEROSIS AT THE CAROTID BIFURCATIONS. PARANASAL SINUS MUCOSAL THICKENING/SECRETIONS, DESCRIBED ABOVE. SMALL MILLIMETRIC LYMPH NODES SEEN AT SOME NECK LEVELS, NONE SIGNIFICANTLY ENLARGED BY IMAGING SIZE CRITERIA. CT neck 05/28/2021 PET scan IMPRESSION: 1. NECK: * FDG avid soft tissue mass in the right tonsil region could represent tonsillitis versus neoplastic process. Correlate with ENT exam. 2. CHEST: * Enlarging left upper lobe nodule measuring 2.7 x 1.8 cm with max SUV of 4.8 suspicious for neoplasm. No mediastinal or hilar lymphadenopathy. 3. ABDOMEN/PELVIS: * No FDG avid neoplastic process. . 4. EXTREMITIES/SKELETON: * No suspicious FDG avid osseous lesion. ASSESSMENT/PLAN: 1. 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 Status post left upper lobectomy and mediastinal lymphadenectomy 09/26/2021. The primary tumor involved the visceral and parietal pleura with evidence of invasion into the chest wall adipose tissue. Surgical margins negative. Postop it was recommended the patient receive adjuvant chemotherapy with cisplatin plus pemetrexed x4 cycles. He received his first cycle on 10/26/2021, and it was complicated by renal dysfunction. Subsequently the patient's treatment was changed to carboplatin plus pemetrexed. He completed his fourth cycle on 01/22/2022. After completing chemotherapy the patient received adjuvant radiation therapy 03/26/2022 - 05/01/2022 (5400 cGy in 27 fractions). August 2022 the patient developed increasing cough and shortness of breath. Staging CT scans 09/17/2022 revealed multiple bilateral pulmonary nodules, suspicious for metastases. With antibiotics the patient's pulmonary symptoms improved, and he currently is clinically stable. Obviously we are concerned that the pulmonary nodules may represent metastases. We elected to arrange for a PET scan. Biopsy will be considered based on results. He will return in 3 weeks for follow-up. If metastatic non-small cell lung cancer is confirmed treatment options will be discussed. 2. Centrilobular emphysema (HCC) - ICD9: 492.8, ICD10: J43.2 Long history of tobacco abuse, quit September 2021. The patient has chronic shortness of breath and cough secondary to COPD. 3. Coronary artery disease Status post AMI 2015. Status post CABG x 4 in [place] 2015. Currently stable. Continue management per PCP/cardiology. 4. Peripheral vascular disease Status post balloon angioplasty right lower leg 2019. On long-term antiplatelet agents with Plavix and Pletal. Continue management per PCP/vascular surgery. 5. Abnormal right tonsil on PET scan (05/28/2021) and neck CT (07/11/2021). Radiographic abnormalities identified on baseline PET scan and neck CT. The patient was seen by [facility] ENT on 07/26/2021, and clinical evaluation most consistent with inflammatory/post-infectious findings. No suspicion for malignancy. The patient apparently chews tobacco, and was advised to discontinue. He will follow-up with ENT as indicated. Pito Grigsby MD documented in this encounter [facility] 09-18-2022 Note [place] Cardiology - [facility] Subjective Crystalruchi RojoDaniels. is a 67 y.o. year old male patient being seen for Coronary Artery Disease, Peripheral Vascular Disease, Carotid Stenosis, and Hypertension Patient Active Problem List Diagnosis Coronary artery disease involving coronary bypass graft of [place] heart without angina pectoris PVD (peripheral vascular disease) ([facility]) Primary hypertension Stenosis of carotid artery No family history on file. HPI: 67 yo male presents for follow up on CAD s/p CABG, PAD and carotid stenosis. In 09/2016 he presented with NSTEMI and underwent cardiac cath which showed 3 vessel disease. He underwent bypass surgery in October 2016. Visit of 02/03/2019: Most recently has been having cough and productive sputum. His PCP ordered some labs. Those were done on 02/02/2019, and showed: BUN 12, creatinine 1.0, potassium 3.8, triglycerides 46, LDL 47, cholesterol 105, HDL 48. WBC 5.2, hemoglobin 14, platelets 180. Chest x-ray 02/02/2019: Hyperexpanded lungs, exaggerated inspiratory effort versus COPD. No acute cardiopulmonary process. Update 04/05/2019: He is seen in follow up. After last visit, I proceeded with lower extremity angiogram on 02/23/2019: 1. 80% ulcerated complex stenosis in the right common iliac artery, reduced to 0% by balloon angioplasty and stent. 2. 90% stenosis in the right external iliac artery, reduced to 0% by balloon angioplasty and stent. 3. 70% stenosis at the ostium of the right external iliac artery. 4. Nonobstructive disease in the left common and external iliac arteries by pressure measurement. 5. 80% ostial, 50% proximal and 70% distal right SFA stenosis. 6. 100% occlusion of the left SFA with filling of the distal vessel via collateral circulation from the left profunda femoris. 7. Occluded anterior tibial artery bilaterally. 8. Occluded right peroneal artery. 9. 70% stenosis in the right tibioperoneal trunk. He has done much better after the procedure and can walk longer distances. Update 07/08/2019: He is seen in follow up. He has been well. No angina. He has not been walking far. He has not done PAD rehab due to work schedule. Otherwise doing well. Visit of 02/21/2021: He is seen in follow-up. He has been doing well from a cardiac perspective. He has no chest pain or shortness of breath. He has no claudication. No stroke symptoms. No palpitations. No lower extremity edema. He is working on [employer] back on smoking. He was recently found to have a lung nodule and is being planned for a needle biopsy. He is currently maintained on aspirin, Plavix and cilostazol. Carotid ultrasound done at the [facility] 10/30/2020: Report mentions significant area reduction suggesting stenosis but the velocities are in the mild to moderate range. Blood testing 01/22/2021: Hemoglobin 14.6, platelets 254, potassium 4.4, BUN 8, creatinine 0.9, LFTs normal, triglycerides 26, LDL 44. Prior testing and history: Echocardiogram 10/19/2016: Global left ventricular systolic function is normal (Visually estimated EF 55%). Normal right ventricular systolic function. The left atrium is normal in size. The right atrium is normal in size. Mild mitral regurgitation. Trivial tricuspid regurgitation. Doppler studies suggest mildly elevated right sided pressures. Carotid artery Duplex 10/19/2016: 1. Antegrade flow of both vertebral arteries. 2. Stenosis in the range of 16-49% in the right internal carotid artery. 3. Stenosis in the range of 50-79% (50-60%) in the left internal carotid artery. ABIs 10/19/2016: 1. Moderate arterial disease both legs, mostly in the iliofemoral or aortoiliac areas CABG 10/21/2016: TABOR to LAD, right radial to diagonal and OM1, saphenous venous graft to the RCA. 09/18/2022: routine follow up Patient is doing well No chest pain Some ROSE but this is normal for him given his COPD and Lung CA He underwent VATS at [facility] for a lung mass last year Had cath prior 07/10/22 - results reviewed Doing well otherwise He has PVD with prior stenting to RLE. He is having some calf pain now in his LLE when walking. He wants to discuss possible intervention. He also has bilateral carotid stenosis, no dizziness or syncope Last echo 2017, normal EF, No significant valve disease Review of Systems Constitutional: Negative. Cardiovascular: Positive for claudication and dyspnea on exertion. Negative for chest pain and leg swelling. Respiratory: Positive for shortness of breath. Skin: Negative. Neurological: Negative for dizziness, numbness and paresthesias. Objective Visit Vitals BP 120/70 (BP Location: Left arm, Patient Position: Sitting) Pulse 86 Ht 1.702 m (5' 7.01 ) Wt 59 kg (130 lb) SpO2 98% BMI 20.36 kg/m??? BSA 1.67 m??? Physical Exam Vitals reviewed. Constitutional: Appearance: Normal appearance. HENT: Head: Normocephalic and atraumatic. Nose: Nose normal. Mouth/Throat: (more content not included)... [facility] 09-12-2022 Miscellaneous Notes Patient will get labs with his CT on 09/17/2022. I took patient off lab schedule on 09/23/2022@3:15 pm. [place] Addended by: PITO GRIGSBY on: 09/12/2022 11:04 AM Modules accepted: Orders The patient should have labs drawn prior to scans. I will see him as scheduled, but no need to come in early on that day to repeat labs. Jeannie B Spoke to patient & rescheduled CT CAP on 09/17/2022@11:15 am. Rescheduled lab on 09/23/22@3:15 pm & BRM@3:30 pm. [place] Pt's son, Eduardo, notified of script and verbalizes understanding. Clerical: Please move up pt's CT's to be done as soon as possible and call pt when scheduled. Will need f/u w/ BRM to review results. Thanks! Denita aRi RN The following approved medication requests have been transmitted electronically. Requested Prescriptions Signed Prescriptions Disp Refills levoFLOXacin (LEVAQUIN) 750 mg tablet 7 tablet 0 Sig: Take 1 tablet by mouth once daily for 7 days. Authorizing Provider: BRENT MILLER APRN.RN DERMATOLOGY Pt's symptoms discussed w/ Dr Grigsby. He recommends another course of Levaquin as well as doing CT's now rather than later. Call placed to pt. No answer. Voicemail full. Unable to leave a message. Brent: Script for Levaquin pended as previously prescribed. Denita Rai RN Pt was treated, per you, w/ Levaquin and Prednisone at the end of July due to bronchitis like symptoms. Reports he felt good for a short time. C/o decreased appetite, cold intolerance, increased dyspnea w/ exertion and when he gets upset. Has a persistent cough w/ clear/white sputum. Reports that he is having episodes of drenching night sweats as well. Denies fevers. Has been taking Guerita [place] cold as well as Advil for his symptoms. Pt due to have CT scans 10/08/22. What do you advise? Denita Rai RN documented in this encounter [facility] 08-20-2022 History of Present illness Narrative PATIENT NAME: Pedro Gu DATE: 08/20/2022 PRIMARY CARE PHYSICIAN: Dr. Christina Azul OTHER PHYSICIANS: Dr. Verito Whelan, Dr. Marianne Fields, Dr. Limon Portions of this encounter note have been copied from the note from 06/25/2022 and has been updated where appropriate, and reflect my current medical decision making from today. CC: This is a 67 year old male with a history of lung cancer, seen for scheduled follow-up. INTERIM HISTORY: Over the past 3 days the patient has had a worsening cough productive of clear sputum. Also intermittent wheezing with shortness of breath. He also complains of mild left flank pain which he believes may be a pulled muscle . No fevers or other signs of infection. Prior to the symptoms the patient was doing well. No unusual fevers night sweats or weight loss. He has stopped smoking, and does not chew tobacco. He apparently was drinking heavily due to depression , but stopped drinking 2 weeks ago. MEDICATIONS: Current Outpatient Medications Medication Sig albuterol (PROVENTIL) 2.5 mg /3 mL (0.083 %) nebulizer solution Use 2.5 mg via nebulizer. ipratropium-albuterol (DUONEB) 0.5 mg-3 mg(2.5 mg base)/3 mL nebu Inhale 3 mL as instructed every 6 hours as needed for wheezing/shortness of breath. traMADol (ULTRAM) 50 mg tablet Take 1 tablet by mouth every 4 hours as needed for pain. Nebulizer and Compressor For Neb 1 Each as needed. Use as directed. STIOLTO RESPIMAT 2.5-2.5 mcg/actuation INHALE TWO (2) PUFFS BY MOUTH ONCE DAILY mupirocin (BACTROBAN) 2 % ointment mupirocin 2 % topical ointment APPLY TO THE AFFECTED AREA(S) THREE TIMES DAILY NEEDED metoprolol tartrate, short acting, (LOPRESSOR) 25 mg tablet Take 50 mg by mouth twice daily. isosorbide mononitrate ER (IMDUR) 30 mg 24 hr tablet Take 30 mg by mouth once daily. ondansetron (ZOFRAN) 8 mg tablet Take 1 tablet by mouth every 8 hours as needed for nausea/vomiting. cilostazol (PLETAL) 100 mg tablet Take 1 tablet by mouth twice daily. clopidogrel (PLAVIX) 75 mg tablet Take 1 tablet by mouth once daily. aspirin 81 mg chewable tablet Take 81 mg by mouth once daily. albuterol HFA (PROVENTIL HFA, VENTOLIN HFA) 90 mcg/actuation inhaler albuterol sulfate HFA 90 mcg/actuation aerosol inhaler INHALE 2 PUFFS BY MOUTH EVERY 4 HOURS NEEDED for SHORTNESS OF BREATH atorvastatin (LIPITOR) 40 mg tablet Take 40 mg by mouth once daily. No current facility-administered medications for this visit. ALLERGIES: ALLERGIES No Known Allergies PAST MEDICAL HISTORY: PAST MEDICAL HISTORY Diagnosis Date Carotid artery disease (HCC) bilateral COPD (chronic obstructive pulmonary disease) (HCC) Heart attack (HCC) History of non-ST elevation myocardial infarction (NSTEMI) HTN (hypertension) Hypertension 09/25/2021 Lung cancer (HCC) Malignant neoplasm of lower lobe of left lung (HCC) Peripheral arterial disease (HCC) 2019 R REGISTRATION COORDINATOR stent PAST SURGICAL HISTORY: PAST SURGICAL HISTORY Procedure Laterality Date BACK SURGERY HX 2019 CABG (4) VEIN GRAFTS & ARTERIAL GRAFT(S) 2016 LOWER EXTREMITY FUNNEL SETTER W/WO STENT Right 2019 right common femoral artery stent REMOVAL OF LUNG,LOBECTOMY Left 09/26/2021 VATS left upper lung wedge resection, completion lobectomy, lymph node dissection, application of Progel to staple line, intercostal nerve blocks for cancer FAMILY HISTORY: FAMILY HISTORY Problem Relation Age of Onset Lung Cancer Father Heart Attack Father Coronary Artery Disease Father SOCIAL HISTORY: Social History Tobacco Use Smoking status: Former Packs/day: 2.00 Years: 50.00 Pack years: 100.00 Types: Cigarettes Start date: 1970 Passive exposure: Past Smokeless tobacco: Never Tobacco comments: was smoking on and off fully quit 09/14/21 Substance Use Topics Alcohol use: Yes Alcohol/week: 30.0 standard drinks Types: 30 Cans of Beer (12oz) per week Comment: 4-9 beers per day Drug use: Never REVIEW OF SYSTEMS: General: No weight loss, malaise or fevers. Positive fatigue. HEENT: Negative for frequent or significant headaches. No changes in hearing or vision, no nose bleeds or other nasal problems Respiratory: Negative for wheezing. Chronic shortness of breath. Positive cough. Cardiovascular: Negative for chest pain, leg swelling or palpitations. GI: Negative for abdominal discomfort, blood in stools or black stools or change in bowel habits. Positive constipation. : No history of dysuria, frequency or incontinence. Musculoskeletal: Negative for joint pain or swelling, back pain and muscle pain. Skin: Negative for lesions and itching. Positive rash- Improving. Hematology/Lymphology: Negative for prolonged bleeding, bruising easily or swollen nodes. Neuro: No history of headaches, syncope, paralysis, seizures or tremors. PHYSICAL EXAM: BP 122/64 Pulse 99 Temp 37.1 C (98.8 F) (Temporal) Resp 16 Ht 167.6 cm (5' 5.98 ) Wt 62.1 kg (137 lb) SpO2 96% BMI 22.12 kg/m ECOG 0 Exam limited to gross visualization where appropriate due to COVID-19. Gen.: This is an age-appropriate patient in no acute distress. Head: Appears atraumatic with no visible lesions. Eyes: Pupils equally round and reactive to light, extraocular muscles are intact. Neck: Supple. Mouth: Masked. Respiratory: Appears to be respiring comfortably. Neurologic: Nonfocal to gross visualization. Alert and oriented 3. Psychiatric: No evidence of inappropriate anxiety or depression. Skin: Visible areas of skin without lesions, wounds or petechiae. Positive rash- mainly involving face and upper back. PATHOLOGY: 09/26/2021 Left upper lobectomy and mediastinal lymphadenectomy A, H. 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 - Visceral pleural invasion present. - Tumor invades into parietal pleural/chest wall adipose tissue. - Arterial invasion present. - Five hilar/peribronchial lymph nodes, negative for tumor (0/5). - Emphysema with patchy smoking-related interstitial fibrosis. - Margins negative. B. Lymph node, level 10L, excision: - Negative for tumor (0/1). C. Lymph node, level 5, excision: - Negative for tumor (0/1). D. Lymph node, level 6, excision: - Negative for tumor (0/1). E. Lymph node, level 11L, excision: - Negative for tumor (0/1). F. Lymph node, level 12L, excision: - Negative for tumor (0/1). G. Lymph node, level 11L #2, excision: - Negative for tumor (0/1). I. Lymph node, level 11L #3, excision: - Negative for tumor (0/1). J. Lymph node, level 9L, excision: - Benign fibroadipose tissue, negative for tumor. Molecular markers: RET rearrangement negative, ROS1 negative, BRAF negative, EGFR negative, HER-2 negative, KRAS c34G>T positive, ALK 1 negative, PD-L1 95% LABS: Hemoglobin (g/dL) Date Value 08/20/2022 11.9 07/03/2021 14.2 Hematocrit (%) Date Value 08/20/2022 35.2 07/03/2021 41.8 WBC (k/uL) Date Value 08/20/2022 5.91 07/03/2021 5.83 Platelet Count (k/uL) Date Value 08/20/2022 227 07/03/2021 265 RADIOLOGY/OTHER STUDIES: 06/14/2022 CT Chest IMPRESSION: 1. Several indeterminate subcentimeter nodular opacities measuring up to 7 mm, new since 09/25/21. Consider interval follow-up. 2. Other noncalcified subcentimeter nodular opacities measuring less than 5 mm, stable. 3. New trace loculated left pleural effusion, most likely related to postoperative change. 06/11/2022 Chest xray IMPRESSION: A small loculated left pleural effusion is felt to have progressed in size from the prior study, as above. 04/12/2022 Bone scan ([facility]) Degenerative findings. No evidence of metastatic disease. 05/23/2022 MRI Lumbar Spine Impression: Heterogeneous appearance of the vertebral bodies stable from the prior exam, nonspecific. No enhancing mass. Mild to moderate discogenic changes L2-S1 grossly stable. For minimal stenosis at several levels as detailed. 10/31/2021 Brain MRI IMPRESSION: No evidence of an acute intracranial process. No intracranial enhancing lesion to suggest metastasis. 09/25/2021 CT chest IMPRESSION: Increased peripheral left upper lobe mass with adjacent curvilinear scarlike opacity concerning for neoplasm. No other acute thoracic disease. 07/11/2021 CT neck IMPRESSION: ASYMMETRIC HIGH DENSITY WITH ILL-DEFINED MARGINS INVOLVING THE ANTERIOR ASPECT OF THE RIGHT PALATINE TONSIL WITHOUT ASSOCIATED NODULARITY. THIS IS A NONSPECIFIC FINDING AND MAY REFLECT HYPEREMIA FROM TONSILLITIS. THIS CORRESPONDS TO THE LOCATION OF FDG ACTIVITY ON THE PRIOR PET/CT EXAM. INTERVAL FOLLOW-UP IMAGING AND/OR DIRECT VISUALIZATION MAY BE OF BENEFIT TO EXCLUDE UNDERLYING SUBTLE MASS. MODERATE DEGENERATIVE CHANGES INVOLVING THE CERVICAL SPINE. MODERATE ATHEROSCLEROSIS AT THE CAROTID BIFURCATIONS. PARANASAL SINUS MUCOSAL THICKENING/SECRETIONS, DESCRIBED ABOVE. SMALL MILLIMETRIC LYMPH NODES SEEN AT SOME NECK LEVELS, NONE SIGNIFICANTLY ENLARGED BY IMAGING SIZE CRITERIA. IMPRESSION: ASYMMETRIC HIGH DENSITY WITH ILL-DEFINED MARGINS INVOLVING THE ANTERIOR ASPECT OF THE RIGHT PALATINE TONSIL WITHOUT ASSOCIATED NODULARITY. THIS IS A NONSPECIFIC FINDING AND MAY REFLECT HYPEREMIA FROM TONSILLITIS. THIS CORRESPONDS TO THE LOCATION OF FDG ACTIVITY ON THE PRIOR PET/CT EXAM. INTERVAL FOLLOW-UP IMAGING AND/OR DIRECT VISUALIZATION MAY BE OF BENEFIT TO EXCLUDE UNDERLYING SUBTLE MASS. MODERATE DEGENERATIVE CHANGES INVOLVING THE CERVICAL SPINE. MODERATE ATHEROSCLEROSIS AT THE CAROTID BIFURCATIONS. PARANASAL SINUS MUCOSAL THICKENING/SECRETIONS, DESCRIBED ABOVE. SMALL MILLIMETRIC LYMPH NODES SEEN AT SOME NECK LEVELS, NONE SIGNIFICANTLY ENLARGED BY IMAGING SIZE CRITERIA. CT neck 05/28/2021 PET scan IMPRESSION: 1. NECK: * FDG avid soft tissue mass in the right tonsil region could represent tonsillitis versus neoplastic process. Correlate with ENT exam. 2. CHEST: * Enlarging left upper lobe nodule measuring 2.7 x 1.8 cm with max SUV of 4.8 suspicious for neoplasm. No mediastinal or hilar lymphadenopathy. 3. ABDOMEN/PELVIS: * No FDG avid neoplastic process. . 4. EXTREMITIES/SKELETON: * No suspicious FDG avid osseous lesion. ASSESSMENT/PLAN: 1. 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 Status post left upper lobectomy and mediastinal lymphadenectomy 09/26/2021. The primary tumor involved the visceral and parietal pleura with evidence of invasion into the chest wall adipose tissue. Surgical margins negative. Postop it was recommended the patient receive adjuvant chemotherapy with cisplatin plus pemetrexed x4 cycles. He received his first cycle on 10/26/2021, and it was complicated with renal dysfunction. Subsequently the patient's treatment was changed to carboplatin plus pemetrexed. He completed his fourth cycle on 01/22/2022. Subsequently the patient received adjuvant radiation therapy 03/26/2022 - 05/01/2022 (5400 cGy in 27 fractions). Currently no evidence of disease. At this time we will continue close follow-up. We will restage with a chest CT in 2 months, he will then return for follow-up. Because of his left flank we will obtain CT abdomen/pelvis as well. 2. Centrilobular emphysema (HCC) - ICD9: 492.8, ICD10: J43.2 Long history of tobacco abuse, quit September 2021. Chronic shortness of breath and cough secondary to COPD. Currently the patient complains of acute shortness of breath, cough and wheezing suggestive of bronchitis. We will give a course of antibiotics with Levaquin x7 days plus steroids with prednisone x2 weeks. 3. Coronary artery disease Status post AMI 2015. Status post CABG x 4 in [place] 2015. Currently stable. Continue management per PCP/cardiology. 4. Peripheral vascular disease Status post balloon angioplasty right lower leg 2019. On long-term antiplatelet agents with Plavix and Pletal. Continue management per PCP/vascular surgery. 5. Abnormal right tonsil on PET scan (05/28/2021) and neck CT (07/11/2021). Radiographic abnormalities identified on baseline PET scan and neck CT. The patient was seen by [facility] on 07/26/2021, and clinical evaluation most consistent with inflammatory/post-infectious findings. No suspicion for malignancy. The patient apparently chews tobacco, and was advised to discontinue. He will follow-up with ENT as indicated. Pito Grigsby MD documented in this encounter [facility] 06-25-2022 History of Present illness Narrative Radiation Oncology - Follow Up Note PATIENT NAME: Pedro Gu PATIENT DIAGNOSIS: Lung cancer, left upper lobe, pleomorphic carcinoma, stage IIb [id number], stage IIB AJCC 8th edition (chest wall invasion), PD-L1 95%, KRAS G12C mutation present RADIATION SUMMARY: DATES OF TREATMENT: 03/26/2022- 05/01/2022 AREA TREATED: left lung DELIVERED DOSE: Area: left lung 5400 cGy in 27 fractions, 2 Arcs, IMRT (VMAT), 6MV/ with daily CBCT TOTAL: 5400 cGy in 27 fractions ELAPSED TIME: 36 days. INTERVAL HISTORY: Overall patient feels he is doing better. He finished course of antibiotics. Denies significant cough or shortness of breath presently. No chest wall pain. Appetite stable. 06/11/22:Patient having some issues with lower back pain. He underwent evaluation with MRI without evidence of metastatic disease though degenerative changes notable likely contributing to his issues. He denies chest pain. No dysphagia. He is having moderate cough without hemoptysis. RADIOLOGY: CT chest 06/14/2022:1. Several indeterminate subcentimeter nodular opacities measuring up to 7 mm, new since 09/25/21. Consider interval follow-up. 2. Other noncalcified subcentimeter nodular opacities measuring less than 5 mm, stable. 3. New trace loculated left pleural effusion, most likely related to postoperative change. MRI lumbar spine 05/23/2022: Heterogeneous appearance vertebral body stable from prior exam. Nonspecific. No enhancing mass. Mild to moderate discogenic changes L2-S1 grossly stable. Foraminal stenosis several levels ALLERGIES No Known Allergies MEDICATIONS: albuterol (PROVENTIL) 2.5 mg /3 mL (0.083 %) nebulizer solution Use 2.5 mg via nebulizer. ipratropium-albuterol (DUONEB) 0.5 mg-3 mg(2.5 mg base)/3 mL nebu Inhale 3 mL as instructed every 6 hours as needed for wheezing/shortness of breath. traMADol (ULTRAM) 50 mg tablet Take 1 tablet by mouth every 4 hours as needed for pain. Nebulizer and Compressor For Neb 1 Each as needed. Use as directed. STIOLTO RESPIMAT 2.5-2.5 mcg/actuation INHALE TWO (2) PUFFS BY MOUTH ONCE DAILY mupirocin (BACTROBAN) 2 % ointment mupirocin 2 % topical ointment APPLY TO THE AFFECTED AREA(S) THREE TIMES DAILY NEEDED metoprolol tartrate, short acting, (LOPRESSOR) 25 mg tablet Take 50 mg by mouth twice daily. isosorbide mononitrate ER (IMDUR) 30 mg 24 hr tablet Take 30 mg by mouth once daily. ondansetron (ZOFRAN) 8 mg tablet Take 1 tablet by mouth every 8 hours as needed for nausea/vomiting. cilostazol (PLETAL) 100 mg tablet Take 1 tablet by mouth twice daily. clopidogrel (PLAVIX) 75 mg tablet Take 1 tablet by mouth once daily. aspirin 81 mg chewable tablet Take 81 mg by mouth once daily. albuterol HFA (PROVENTIL HFA, VENTOLIN HFA) 90 mcg/actuation inhaler albuterol sulfate HFA 90 mcg/actuation aerosol inhaler INHALE 2 PUFFS BY MOUTH EVERY 4 HOURS NEEDED for SHORTNESS OF BREATH atorvastatin (LIPITOR) 40 mg tablet Take 40 mg by mouth once daily. REVIEW OF SYSTEMS: GENERAL: SEE HPI. HEENT: Negative for sudden vision or hearing changes. NECK: Negative for masses in the neck. RESPIRATORY: See HPI CARDIAC: Negative for chest pain, palpitations, murmurs, or syncopal episodes. GI: Negative for nausea, vomiting, diarrhea, constipation, blood per rectum, or melena. : Negative for dysuria, hematuria, urgency, frequency or incontinence. MUSCULOSKELETAL: See HPI NEURO: Negative for dizziness, headache, weakness or numbness. HEMATOLOGIC: Negative for bleeding or easy bruising. SKIN: Negative for rashes or other skin changes. PHYSICAL EXAM: 06/25/2022 Weight 60 kg (132 lb 3.2 oz) Height 167.6 cm (5' 5.98 ) BSA 1.67 BMI 21.35 Temp 36.6 ?C (97.9 ?F) Pulse 101 Resp 16 BP 139/74 KPS: 100 General Appearance: Alert and oriented. No acute distress. HEENT: NCAT. Sclera anicteric. PERRL. EOMI. Neck: Normal ROM. No palpable cervical or supraclavicular adenopathy. Chest: No respiratory distress. Lungs clear to auscultation bilaterally. Heart: Regular rate and rhythm. Abdomen: Soft. Nontender. Nondistended. Musculoskeletal: No edema. Normal ROM in extremities. No bone or spine tenderness. Neuro: Speech fluent. Gait normal. No focal deficits. Skin: No rashes noted Lymphatics: No palpable lymphadenopathy. ASSESSMENT/PLAN: Lung cancer, left upper lobe, pleomorphic carcinoma, stage IIb [id number], stage IIB AJCC 8th edition (chest wall invasion), PD-L1 95%, KRAS G12C mutation present Doing fairly well after recent completion of left chest radiation. He had episode of cough likely community-acquired bronchitis. Doing better after p.o. antibiotics. No obvious evidence of recurrence clinically or radiographically. We will plan to see her back in 3 months. Patient will have continued follow-up with medical oncology, Dr. Grigsby who will order future staging examinations. Signed by: Jyoti Limon MD cc: Christina Azul [address] [place] [address] No referring provider defined for this encounter. documented in this encounter [facility] 06-25-2022 History of Present illness Narrative PATIENT NAME: Pedro Gu DATE: 06/25/2022 PRIMARY CARE PHYSICIAN: Dr. Christina Azul OTHER PHYSICIANS: Dr. Verito Whelan, Dr. Marianne Fields, Dr. Limon Portions of this encounter note have been copied from the note from 04/30/2022 and has been updated where appropriate, and reflect my current medical decision making from today. CC: This is a 67 year old male with lung cancer, seen for scheduled follow-up. INTERIM HISTORY: Pedro Gu returns for scheduled follow-up. He received radiation to his left lung 03/26/2022 through 05/01/2022. Since his last visit he had an MRI of his spine. Today he reports that he has been dealing with an infection in his lungs. He states that his lungs hurt so bad . He was coughing up copious amounts of yellow and green mucus. He has been following with his PCP. He started feeling a little better after taking 7 days of the antibiotic. He is now coughing up clear mucus. He did not have any fevers during this time. 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 He was not COVID tested. His rash to his face continues to improve. He currently does not have a follow-up with dermatology. He has not had a follow-up appointment with ENT, Dr. Tse, since his initial visit on 07/26/2021. He denies any new areas of pain. MEDICATIONS: Current Outpatient Medications Medication Sig albuterol (PROVENTIL) 2.5 mg /3 mL (0.083 %) nebulizer solution Use 2.5 mg via nebulizer. ipratropium-albuterol (DUONEB) 0.5 mg-3 mg(2.5 mg base)/3 mL nebu Inhale 3 mL as instructed every 6 hours as needed for wheezing/shortness of breath. traMADol (ULTRAM) 50 mg tablet Take 1 tablet by mouth every 4 hours as needed for pain. Nebulizer and Compressor For Neb 1 Each as needed. Use as directed. STIOLTO RESPIMAT 2.5-2.5 mcg/actuation INHALE TWO (2) PUFFS BY MOUTH ONCE DAILY mupirocin (BACTROBAN) 2 % ointment mupirocin 2 % topical ointment APPLY TO THE AFFECTED AREA(S) THREE TIMES DAILY NEEDED metoprolol tartrate, short acting, (LOPRESSOR) 25 mg tablet Take 50 mg by mouth twice daily. isosorbide mononitrate ER (IMDUR) 30 mg 24 hr tablet Take 30 mg by mouth once daily. ondansetron (ZOFRAN) 8 mg tablet Take 1 tablet by mouth every 8 hours as needed for nausea/vomiting. cilostazol (PLETAL) 100 mg tablet Take 1 tablet by mouth twice daily. clopidogrel (PLAVIX) 75 mg tablet Take 1 tablet by mouth once daily. aspirin 81 mg chewable tablet Take 81 mg by mouth once daily. albuterol HFA (PROVENTIL HFA, VENTOLIN HFA) 90 mcg/actuation inhaler albuterol sulfate HFA 90 mcg/actuation aerosol inhaler INHALE 2 PUFFS BY MOUTH EVERY 4 HOURS NEEDED for SHORTNESS OF BREATH atorvastatin (LIPITOR) 40 mg tablet Take 40 mg by mouth once daily. No current facility-administered medications for this visit. ALLERGIES: ALLERGIES No Known Allergies PAST MEDICAL HISTORY: PAST MEDICAL HISTORY Diagnosis Date Carotid artery disease (HCC) bilateral COPD (chronic obstructive pulmonary disease) (HCC) Heart attack (HCC) History of non-ST elevation myocardial infarction (NSTEMI) HTN (hypertension) Hypertension 09/25/2021 Lung cancer (HCC) Malignant neoplasm of lower lobe of left lung (HCC) Peripheral arterial disease (HCC) 2019 R REGISTRATION COORDINATOR stent PAST SURGICAL HISTORY: PAST SURGICAL HISTORY Procedure Laterality Date BACK SURGERY HX 2019 CABG (4) VEIN GRAFTS & ARTERIAL GRAFT(S) 2016 LOWER EXTREMITY FUNNEL SETTER W/WO STENT Right 2019 right common femoral artery stent REMOVAL OF LUNG,LOBECTOMY Left 09/26/2021 VATS left upper lung wedge resection, completion lobectomy, lymph node dissection, application of Progel to staple line, intercostal nerve blocks for cancer FAMILY HISTORY: FAMILY HISTORY Problem Relation Age of Onset Lung Cancer Father Heart Attack Father Coronary Artery Disease Father SOCIAL HISTORY: Social History Tobacco Use Smoking status: Former Packs/day: 2.00 Years: 50.00 Pack years: 100.00 Types: Cigarettes Start date: 1970 Passive exposure: Past Smokeless tobacco: Never Tobacco comments: was smoking on and off fully quit 09/14/21 Substance Use Topics Alcohol use: Yes Alcohol/week: 30.0 standard drinks Types: 30 Cans of Beer (12oz) per week Comment: 4-9 beers per day Drug use: Never REVIEW OF SYSTEMS: General: No weight loss, malaise or fevers. Positive fatigue. HEENT: Negative for frequent or significant headaches. No changes in hearing or vision, no nose bleeds or other nasal problems Respiratory: Negative for wheezing. Chronic shortness of breath. Positive cough. Cardiovascular: Negative for chest pain, leg swelling or palpitations. GI: Negative for abdominal discomfort, blood in stools or black stools or change in bowel habits. Positive constipation. : No history of dysuria, frequency or incontinence. Musculoskeletal: Negative for joint pain or swelling, back pain and muscle pain. Skin: Negative for lesions and itching. Positive rash- Improving. Hematology/Lymphology: Negative for prolonged bleeding, bruising easily or swollen nodes. Neuro: No history of headaches, syncope, paralysis, seizures or tremors. PHYSICAL EXAM: BP 139/74 Pulse 101 Temp 36.6 C (97.9 F) (Temporal) Resp 16 Ht 167.6 cm (5' 5.98 ) Wt 60 kg (132 lb 3.2 oz) SpO2 94% BMI 21.35 kg/m ECOG 0 Exam limited to gross visualization where appropriate due to COVID-19. Gen.: This is an age-appropriate patient in no acute distress. Head: Appears atraumatic with no visible lesions. Eyes: Pupils equally round and reactive to light, extraocular muscles are intact. Neck: Supple. Mouth: Masked. Respiratory: Appears to be respiring comfortably. Neurologic: Nonfocal to gross visualization. Alert and oriented 3. Psychiatric: No evidence of inappropriate anxiety or depression. Skin: Visible areas of skin without lesions, wounds or petechiae. Positive rash- mainly involving face and upper back. PATHOLOGY: 09/26/2021 Left upper lobectomy and mediastinal lymphadenectomy A, H. 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 - Visceral pleural invasion present. - Tumor invades into parietal pleural/chest wall adipose tissue. - Arterial invasion present. - Five hilar/peribronchial lymph nodes, negative for tumor (0/5). - Emphysema with patchy smoking-related interstitial fibrosis. - Margins negative. B. Lymph node, level 10L, excision: - Negative for tumor (0/1). C. Lymph node, level 5, excision: - Negative for tumor (0/1). D. Lymph node, level 6, excision: - Negative for tumor (0/1). E. Lymph node, level 11L, excision: - Negative for tumor (0/1). F. Lymph node, level 12L, excision: - Negative for tumor (0/1). G. Lymph node, level 11L #2, excision: - Negative for tumor (0/1). I. Lymph node, level 11L #3, excision: - Negative for tumor (0/1). J. Lymph node, level 9L, excision: - Benign fibroadipose tissue, negative for tumor. Molecular markers: RET rearrangement negative, ROS1 negative, BRAF negative, EGFR negative, HER-2 negative, KRAS c34G>T positive, ALK 1 negative, PD-L1 95% LABS: Hemoglobin (g/dL) Date Value 06/25/2022 12.5 07/03/2021 14.2 Hematocrit (%) Date Value 06/25/2022 34.9 07/03/2021 41.8 WBC (k/uL) Date Value 06/25/2022 5.34 07/03/2021 5.83 Platelet Count (k/uL) Date Value 06/25/2022 208 07/03/2021 265 RADIOLOGY/OTHER STUDIES: 06/14/ CT Chest IMPRESSION: 1. Several indeterminate subcentimeter nodular opacities measuring up to 7 mm, new since 09/25/21. Consider interval follow-up. 2. Other noncalcified subcentimeter nodular opacities measuring less than 5 mm, stable. 3. New trace loculated left pleural effusion, most likely related to postoperative change. 06/11/2022 Chest xray IMPRESSION: A small loculated left pleural effusion is felt to have progressed in size from the prior study, as above. 04/12/2022 Bone scan ([facility]) Degenerative findings. No evidence of metastatic disease. 05/23/2022 MRI Lumbar Spine Impression: Heterogeneous appearance of the vertebral bodies stable from the prior exam, nonspecific. No enhancing mass. Mild to moderate discogenic changes L2-S1 grossly stable. For minimal stenosis at several levels as detailed. 10/31/2021 Brain MRI IMPRESSION: No evidence of an acute intracranial process. No intracranial enhancing lesion to suggest metastasis. 09/25/2021 CT chest IMPRESSION: Increased peripheral left upper lobe mass with adjacent curvilinear scarlike opacity concerning for neoplasm. No other acute thoracic disease. 07/11/2021 CT neck IMPRESSION: ASYMMETRIC HIGH DENSITY WITH ILL-DEFINED MARGINS INVOLVING THE ANTERIOR ASPECT OF THE RIGHT PALATINE TONSIL WITHOUT ASSOCIATED NODULARITY. THIS IS A NONSPECIFIC FINDING AND MAY REFLECT HYPEREMIA FROM TONSILLITIS. THIS CORRESPONDS TO THE LOCATION OF FDG ACTIVITY ON THE PRIOR PET/CT EXAM. INTERVAL FOLLOW-UP IMAGING AND/OR DIRECT VISUALIZATION MAY BE OF BENEFIT TO EXCLUDE UNDERLYING SUBTLE MASS. MODERATE DEGENERATIVE CHANGES INVOLVING THE CERVICAL SPINE. MODERATE ATHEROSCLEROSIS AT THE CAROTID BIFURCATIONS. PARANASAL SINUS MUCOSAL THICKENING/SECRETIONS, DESCRIBED ABOVE. SMALL MILLIMETRIC LYMPH NODES SEEN AT SOME NECK LEVELS, NONE SIGNIFICANTLY ENLARGED BY IMAGING SIZE CRITERIA. IMPRESSION: ASYMMETRIC HIGH DENSITY WITH ILL-DEFINED MARGINS INVOLVING THE ANTERIOR ASPECT OF THE RIGHT PALATINE TONSIL WITHOUT ASSOCIATED NODULARITY. THIS IS A NONSPECIFIC FINDING AND MAY REFLECT HYPEREMIA FROM TONSILLITIS. THIS CORRESPONDS TO THE LOCATION OF FDG ACTIVITY ON THE PRIOR PET/CT EXAM. INTERVAL FOLLOW-UP IMAGING AND/OR DIRECT VISUALIZATION MAY BE OF BENEFIT TO EXCLUDE UNDERLYING SUBTLE MASS. MODERATE DEGENERATIVE CHANGES INVOLVING THE CERVICAL SPINE. MODERATE ATHEROSCLEROSIS AT THE CAROTID BIFURCATIONS. PARANASAL SINUS MUCOSAL THICKENING/SECRETIONS, DESCRIBED ABOVE. SMALL MILLIMETRIC LYMPH NODES SEEN AT SOME NECK LEVELS, NONE SIGNIFICANTLY ENLARGED BY IMAGING SIZE CRITERIA. CT neck 05/28/2021 PET scan IMPRESSION: 1. NECK: * FDG avid soft tissue mass in the right tonsil region could represent tonsillitis versus neoplastic process. Correlate with ENT exam. 2. CHEST: * Enlarging left upper lobe nodule measuring 2.7 x 1.8 cm with max SUV of 4.8 suspicious for neoplasm. No mediastinal or hilar lymphadenopathy. 3. ABDOMEN/PELVIS: * No FDG avid neoplastic process. . 4. EXTREMITIES/SKELETON: * No suspicious FDG avid osseous lesion. ASSESSMENT/PLAN: 1. 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 Status post left upper lobectomy and mediastinal lymphadenectomy 09/26/2021. The primary tumor involved the visceral and parietal pleura with evidence of invasion into the chest wall adipose tissue. Surgical margins negative. Postop the patient was started on adjuvant chemotherapy with cisplatin plus pemetrexed. He received his first cycle on 10/26/2021, and it was complicated with renal dysfunction. Subsequently the patient's treatment was changed to carboplatin plus pemetrexed and he completed his fourth cycle on 01/22/2022. His treatment was complicated by significant anemia and an atypical skin rash. Subsequently the patient was started on adjuvant radiation therapy 03/26/2022. Radiation is scheduled to be completed on 05/02/2022. We will see the patient back in 8 weeks. I will reach out to Dr. Grigsby to determine when he would like restaging scans. 2. Centrilobular emphysema (HCC) - ICD9: 492.8, ICD10: J43.2 Long history of tobacco abuse, quit September 2021. Chronic shortness of breath and cough stable on current medications. Continue management per pulmonary/PCP. 3. Coronary artery disease Status post AMI 2015. Status post CABG x 4 in [place] 2015. Currently stable. Continue management per PCP/cardiology. 4. Peripheral vascular disease Status post balloon angioplasty right lower leg 2019. On long-term antiplatelet agents with Plavix and Pletal. Continue management per PCP/vascular surgery. 5. Abnormal right tonsil on PET scan (05/28/2021) and neck CT (07/11/2021). Radiographic abnormalities identified on baseline PET scan and neck CT. The patient was seen by [facility] on 07/26/2021. Clinical evaluation most consistent with inflammatory/post-infectious findings. No suspicion for malignancy. The patient apparently chews tobacco, and was advised to discontinue. Follow-up with ENT as indicated. Will discuss with Dr. Grigsby if patient needs to be referred back to ENT. Brent Miller APRN.CNP I spent a total of 30 minutes on the date of the service which included preparing to see the patient, [id number] patient care, completing clinical documentation, obtaining and/or reviewing separately obtained history, performing a medically appropriate examination, counseling and educating the patient/family/caregiver, ordering medications, tests, or procedures, independently interpreting results (not separately reported), and communicating results to the patient/family/caregiver. I spent a total of 30 minutes on the date of the service which included preparing to see the patient, [id number] patient care, completing clinical documentation, obtaining and/or reviewing separately obtained history, performing a medically appropriate examination, counseling and educating the patient/family/caregiver, ordering medications, tests, or procedures, independently interpreting results (not separately reported), and communicating results to the patient/family/caregiver. documented in this encounter [facility] 06-11-2022 History of Present illness Narrative Radiation Oncology - Follow Up Note PATIENT NAME: Pedro Gu PATIENT DIAGNOSIS: Lung cancer, left upper lobe, pleomorphic carcinoma, stage IIb [id number], stage IIB AJCC 8th edition (chest wall invasion), PD-L1 95%, KRAS G12C mutation present RADIATION SUMMARY: DATES OF TREATMENT: 03/26/2022- 05/01/2022 AREA TREATED: left lung DELIVERED DOSE: Area: left lung 5400 cGy in 27 fractions, 2 Arcs, IMRT (VMAT), 6MV/ with daily CBCT TOTAL: 5400 cGy in 27 fractions ELAPSED TIME: 36 days. INTERVAL HISTORY: Patient having some issues with lower back pain. He underwent evaluation with MRI without evidence of metastatic disease though degenerative changes notable likely contributing to his issues. He denies chest pain. No dysphagia. He is having moderate cough without hemoptysis. RADIOLOGY: MRI lumbar spine 05/23/2022: Heterogeneous appearance vertebral body stable from prior exam. Nonspecific. No enhancing mass. Mild to moderate discogenic changes L2-S1 grossly stable. Foraminal stenosis several levels ALLERGIES No Known Allergies MEDICATIONS: albuterol (PROVENTIL) 2.5 mg /3 mL (0.083 %) nebulizer solution Use 2.5 mg via nebulizer. traMADol (ULTRAM) 50 mg tablet Take 1 tablet by mouth every 4 hours as needed for pain. Nebulizer and Compressor For Neb 1 Each as needed. Use as directed. STIOLTO RESPIMAT 2.5-2.5 mcg/actuation INHALE TWO (2) PUFFS BY MOUTH ONCE DAILY mupirocin (BACTROBAN) 2 % ointment mupirocin 2 % topical ointment APPLY TO THE AFFECTED AREA(S) THREE TIMES DAILY NEEDED metoprolol tartrate, short acting, (LOPRESSOR) 25 mg tablet Take 50 mg by mouth twice daily. isosorbide mononitrate ER (IMDUR) 30 mg 24 hr tablet Take 30 mg by mouth once daily. ondansetron (ZOFRAN) 8 mg tablet Take 1 tablet by mouth every 8 hours as needed for nausea/vomiting. cilostazol (PLETAL) 100 mg tablet Take 1 tablet by mouth twice daily. clopidogrel (PLAVIX) 75 mg tablet Take 1 tablet by mouth once daily. aspirin 81 mg chewable tablet Take 81 mg by mouth once daily. albuterol HFA (PROVENTIL HFA, VENTOLIN HFA) 90 mcg/actuation inhaler albuterol sulfate HFA 90 mcg/actuation aerosol inhaler INHALE 2 PUFFS BY MOUTH EVERY 4 HOURS NEEDED for SHORTNESS OF BREATH atorvastatin (LIPITOR) 40 mg tablet Take 40 mg by mouth once daily. ipratropium-albuterol (DUONEB) 0.5 mg-3 mg(2.5 mg base)/3 mL nebu Inhale 3 mL as instructed every 6 hours as needed for wheezing/shortness of breath. REVIEW OF SYSTEMS: GENERAL: SEE HPI. HEENT: Negative for sudden vision or hearing changes. NECK: Negative for masses in the neck. RESPIRATORY: See HPI CARDIAC: Negative for chest pain, palpitations, murmurs, or syncopal episodes. GI: Negative for nausea, vomiting, diarrhea, constipation, blood per rectum, or melena. : Negative for dysuria, hematuria, urgency, frequency or incontinence. MUSCULOSKELETAL: See HPI NEURO: Negative for dizziness, headache, weakness or numbness. HEMATOLOGIC: Negative for bleeding or easy bruising. SKIN: Negative for rashes or other skin changes. PHYSICAL EXAM: VS: BP (P) 124/78 Pulse (P) 68 Temp (P) 36.4 C (97.5 F) Resp (P) 16 Wt (P) 59.9 kg (132 lb) SpO2 (P) 99% BMI (P) 21.32 kg/m KPS: 100 General Appearance: Alert and oriented. No acute distress. HEENT: NCAT. Sclera anicteric. PERRL. EOMI. Neck: Normal ROM. No palpable cervical or supraclavicular adenopathy. Chest: No respiratory distress. Lungs clear to auscultation bilaterally. Heart: Regular rate and rhythm. Abdomen: Soft. Nontender. Nondistended. Musculoskeletal: No edema. Normal ROM in extremities. No bone or spine tenderness. Neuro: Speech fluent. Gait normal. No focal deficits. Skin: No rashes noted Lymphatics: No palpable lymphadenopathy. ASSESSMENT/PLAN: Lung cancer, left upper lobe, pleomorphic carcinoma, stage IIb [id number], stage IIB AJCC 8th edition (chest wall invasion), PD-L1 95%, KRAS G12C mutation present Doing fairly well, without significant post radiation issues. However having increased cough. Recommend repeat imaging pending CT chest. Patient also with low back pain that seems chronic without evidence of findings on recent MRI. Patient will have continued follow-up with medical oncology. Plan to see patient back after CT chest. Signed by: Jyoti Limon MD cc: Christina Azul [facility] [place] [facility]– [place] [address] No referring provider defined for this encounter. documented in this encounter [facility] 06-07-2022 Miscellaneous Notes Pérez called to notify Dr. Limon that last week he started with a productive cough of whitish colored mucus which then turned yellow. He saw Dr. Azul, PCP, on 06/03/22, who prescribed albuterol nebulizer tx. 06/05/22, he called Dr. Azul and notified him of productive cough with yellowish-green mucus. He was started on an antibiotic on 06/05/22. He is wondering if he should have a cxr. I said he should probably check with Dr. Azul since he is managing his concerns at this time. He said he will see how he feels over the weekend and call Dr. Azul on Friday if necessary. The missed post treatment follow up with Dr. Limon has been rescheduled to 06/11/22 at 1:45. Rosibel Wheeler LPN documented in this encounter [facility] 06-06-2022 Miscellaneous Notes Called patient to follow up on missed appointment with Radha Palmer PA-C on 05/16. Unable to reach patient or leave a message at the number provided - mailbox is full. documented in this encounter [facility] 05-13-2022 Miscellaneous Notes Called patient regarding upcoming scheduled appointment with Radha Palmer PA-C on 05/16. Spoke with patient and confirmed his appointment date, time & location. Patient has a to go to that day but expects to be able to make the appointment. He declined to reschedule for another date. He has been painting quite a bit and feels it is affecting his breathing. Patient has no immediate needs at this time. documented in this encounter [facility] 05-01-2022 Note PROCEDURE: XR HIP RT 2 3V WO PELVIS HISTORY: Hip pain COMPARISON: None. FINDINGS: BONES:No fracture, acute abnormality, or significant arthropathy. SOFT TISSUES:No visible soft tissue swelling. EFFUSION:None visible. OTHER: Atherosclerotic coronary artery disease. Endovascular stent within iliac artery. IMPRESSION: 1. No acute bone abnormality or significant degenerative joint disease of the right hip. Electronically authenticated by: TRUDY GUTIERREZ Date: 2022-05-01 17:[address] [facility] 05-01-2022 History of Present illness Narrative [facility] Radiation Oncology Department RADIATION ONCOLOGY - COMPLETION NOTE PATIENT: PEDRO GUDOB: 1955 DATES OF TREATMENT: 03/26/2022- 05/01/2022 DIAGNOSIS: Lung cancer, left upper lobe, pleomorphic carcinoma, stage IIb [id number], stage IIB AJCC 8th edition (chest wall invasion), PD-L1 95%, KRAS G12C mutation present AREA TREATED: left lung DELIVERED DOSE: Area: left lung 5400 cGy in 27 fractions, 2 Arcs, IMRT (VMAT), 6MV/ with daily CBCT TOTAL: 5400 cGy in 27 fractions ELAPSED TIME: 36 days. CLINICAL SUMMARY: The patient tolerated radiation with mild radiation related dermatitis and fatigue as expected. No other issues. The patient was able to complete treatment as intended without break interruption or modification of prescription plan. The patient will be seen again in 2 weeks for post radiation follow-up. Staff Physician Deon Limon M.D. / WST 24:03 PM documented in this encounter [facility] 04-29-2022 Miscellaneous Notes Provided code for pharmacy, patient's medication ran through. [facility] in [place] called stating they need a dx code for ipratropium documented in this encounter [facility] 04-29-2022 Miscellaneous Notes Pt I today for radiation and was finally able to get nebulizer machine. He does not have the duoneb medication at home and pharmacy will not fill it as it was an old prescription. Please review and sign new Rx if agreeable. Thank you! Merissa Fam RN documented in this encounter [facility] 04-22-2022 History of Present illness Narrative Radiation Oncology - On Treatment Review (OTR) Note PATIENT NAME: Pedro Gu PATIENT DIAGNOSIS: Lung cancer, left upper lobe, pleomorphic carcinoma, stage IIb [id number], stage IIB AJCC 8th edition (chest wall invasion), PD-L1 95%, KRAS G12C mutation present PROTOCOL: no COURSE: post-operative Current dose: 4000 cGy in 20 fx Planned dose: 5400 cGy in 27 fx SUBJECTIVE: Doing better neck pain improved on steroids and muscle relaxer. Appetite improved. Denies shortness of breath or cough. RADIOLOGY: Bone scan without evidence of metastatic findings. PHYSICAL EXAM: Area Assessed: Chest KPS: 100 General Appearance: Alert and oriented. No acute distress. Chest: No respiratory distress. Lungs clear to auscultation bilaterally. Neurologic: Reflexes 1+ symmetric. Strength 5 out of 5 upper lower extremity. Sensation grossly intact. Straight leg raise negative. Musculoskeletal: Pain to percussion over right iliac and sacroiliac area IMAGING/LAB RESULTS: None TOXICITY ASSESSMENT (CTC v4.0): Fatigue: grade 1 Weight loss: grade 0 - No weight loss Nausea:Grade 0 - No Symptoms Radiation Dermatitis:grade 0 - No symptoms Dysphagia: grade 0 - No symptoms Esophageal Pain: Grade 0 - No symptoms Dyspnea: grade 0 (No symptoms) Treatment chart checked: Yes Patient treatment site reviewed and verified:Yes Port films reviewed and current:Yes Medications started: None ASSESSMENT/PLAN: Doing better with improved back pain likely related to musculoskeletal strain. Tolerating treatments very well. Continue as outlined. Jyoti Limon MD documented in this encounter [facility] 04-17-2022 Miscellaneous Notes Patient coming in to see you on Friday04/30/22 for follow up with labs. Please add lab orders. Thanks. Virgie Dominguez MA documented in this encounter [facility] 04-15-2022 History of Present illness Narrative Radiation Oncology - On Treatment Review (OTR) Note PATIENT NAME: Pedro Gu PATIENT DIAGNOSIS: Lung cancer, left upper lobe, pleomorphic carcinoma, stage IIb [id number], stage IIB AJCC 8th edition (chest wall invasion), PD-L1 95%, KRAS G12C mutation present PROTOCOL: no COURSE: post-operative Current dose: 3000 cGy in 15 fx Planned dose: 5400 cGy in 27 fx SUBJECTIVE: Patient still with back pain. Right abdominal discomfort has improved considerably. No nausea or vomiting. Generalized rash improving. RADIOLOGY: Bone scan without evidence of metastatic findings. PHYSICAL EXAM: Area Assessed: Chest KPS: 100 General Appearance: Alert and oriented. No acute distress. Chest: No respiratory distress. Lungs clear to auscultation bilaterally. Neurologic: Reflexes 1+ symmetric. Strength 5 out of 5 upper lower extremity. Sensation grossly intact. Straight leg raise negative. Musculoskeletal: Pain to percussion over right iliac and sacroiliac area IMAGING/LAB RESULTS: None TOXICITY ASSESSMENT (CTC v4.0): Fatigue: grade 1 Weight loss: grade 0 - No weight loss Nausea:Grade 0 - No Symptoms Radiation Dermatitis:grade 0 - No symptoms Dysphagia: grade 0 - No symptoms Esophageal Pain: Grade 0 - No symptoms Dyspnea: grade 0 (No symptoms) Treatment chart checked: Yes Patient treatment site reviewed and verified:Yes Port films reviewed and current:Yes Medications started: None ASSESSMENT/PLAN: Pain likely related to degenerative causes possible disc, bone scan negative. Recommend follow-up with family physician. Continue conservative measures for pain including Ultram, ibuprofen. Patient tolerating left lung radiation well. Jyoti Limon MD documented in this encounter [facility] 04-11-2022 Miscellaneous Notes Patient states pharmacy did contact him and they are working on it. Rosibel Wheeler LPN I called DM in [place] to get an update on [employer] nebulizer as he said he does not have one at home. Ofe in the pharmacy is going to look into it to see why this prescription was never completed. She will call the patient to get updated insurance information. Rosibel Wheeler LPN documented in this encounter [facility] 04-08-2022 History of Present illness Narrative Radiation Oncology - On Treatment Review (OTR) Note PATIENT NAME: Pedro Gu PATIENT DIAGNOSIS: Lung cancer, left upper lobe, pleomorphic carcinoma, stage IIb [id number], stage IIB AJCC 8th edition (chest wall invasion), PD-L1 95%, KRAS G12C mutation present PROTOCOL: no COURSE: post-operative Current dose: 2000 cGy in 10fx Planned dose: 5400 cGy in 27 fx SUBJECTIVE: Patient with new pain right sacroiliac area radiates to right hip. Denies loss of strength or paresthesias. Denies abdominal pain. Denies chest pain or cough. PHYSICAL EXAM: Area Assessed: Chest KPS: 100 General Appearance: Alert and oriented. No acute distress. Chest: No respiratory distress. Lungs clear to auscultation bilaterally. Neurologic: Reflexes 1+ symmetric. Strength 5 out of 5 upper lower extremity. Sensation grossly intact. Straight leg raise negative. Musculoskeletal: Pain to percussion over right iliac and sacroiliac area IMAGING/LAB RESULTS: None TOXICITY ASSESSMENT (CTC v4.0): Fatigue: grade 1 Weight loss: grade 0 - No weight loss Nausea:Grade 0 - No Symptoms Radiation Dermatitis:grade 0 - No symptoms Dysphagia: grade 0 - No symptoms Esophageal Pain: Grade 0 - No symptoms Dyspnea: grade 0 (No symptoms) Treatment chart checked: Yes Patient treatment site reviewed and verified:Yes Port films reviewed and current:Yes Medications started: None ASSESSMENT/PLAN: Patient tolerating left breast radiation well. Due to right pelvic pain. Unclear etiology. Recommend bone scan. Recommend tramadol as needed. Otherwise continue radiation. Chart and imaging reviewed. Jyoti Limon MD documented in this encounter [facility] 04-03-2022 History of Present illness Narrative Oncology Nutrition Therapy Initial Assessment RECOMMENDED MALNUTRITION DIAGNOSIS: NO MALNUTRITION IDENTIFIED Nutrition Diagnosis: Increased protein and energy needs related to hypermetabolic disease process as evidenced by need for weight maintenance and preservation of muscle mass. Nutrition Intervention: -encouraged weight maintenance -aim for small frequent meals/snacks -include lean protein source at each meal/snack -discussed potential nutrition related side effects -encouraged good hydration -discussed supplementation -boost or ensure if skipping a meal -provided contact information for any further questions/concerns Nutrition Monitoring & Evaluation: -PO Intake -Wt status -Supplement tolerance/acceptance -Biochemical Markers -Plan of care Patient's symptoms are: None Pt presents for nutrition counseling for lung cancer, s/p left upper lobectomy and mediastinal lymphadenectomy (09/26/21). Pt is currently being treated with RT. Pt was previously treated with cisplatin plus pemetrexed. Pt denies any chewing/swallowing issues, denies current N/V/D/C. Pt denies food allergies/intolerances. Appetite appears to be varied, Intakes are fair. Pt reports he has always been a light eater. Pt also admits to daily beer consumption and states depending on how many beers/day he has it causes him to not want to eat as much. He states last night he had 8 beers. Typically, pt states he consumes 2 meals per day (B, D) and typically skips lunch. Reviewed with pt role of oncology dietitian and educated pt on importance of adequate calorie/protein intake and importance of preserving lean muscle mass. Encouraged decreased consumption of beer. Reviewed with pt interventions above and problem solved ways to meet recommendations. Pt verbalized understanding. Thank you for allowing me to participate in the care of this pt. Readiness to Learn: Cognitive ability: Alert and oriented Motivation to learn: Interested Family support: Unable to assess - Family not present Instruction provided to: Patient Patient learns best by: Multiple Methods Factors affecting learning: None Physical limitations affecting learning: None Educational materials provided: ACS Booklet- Nutrition for the Person with Cancer During Treatment Anthropometrics: Height: Last 1 Encounter Ht Readings: Date: Ht: 03/19/2022 167.6 cm (5' 5.98 ) Current weight: Last 1 Encounter Wt Readings: Date: Wt: 04/01/2022 59 kg (130 lb) Estimated body mass index is 20.99 kg/m as calculated from the following: Height as of 03/19/22: 167.6 cm (5' 5.98 ). Weight as of 04/01/22: 59 kg (130 lb). Resting Metabolic Rate: 1321 Weight Change: 2.2kg (3.6%) x 3 mo- not considered significant Dosing Weight: 58.9 kg Estimated kilocalorie needs: 7180-6114 kilocalories determined by 30-35 kcal/kg Estimated protein needs: 59-88 grams determined by 1.0-1.5 g/kg Dosing weight Estimated fluid needs: ~7126-6042 milliliters based on 1 mL per kcal (unless otherwise noted) Nutrition Focused Physical Exam: Unable to perform exam due to concerns for lack of privacy in radiation waiting area. Offer to see pt in private exam room, but pt declined. Will re-attempt during reassessment. Potential Signs of Inflammation: chronic condition Allergies: Patient has no known allergies. Medications: Current Outpatient Medications Medication Sig Dispense Refill Nebulizer and Compressor For Neb 1 Each as needed. Use as directed. 1 Each 0 STIOLTO RESPIMAT 2.5-2.5 mcg/actuation INHALE TWO (2) PUFFS BY MOUTH ONCE DAILY 4 g 10 ipratropium-albuterol (DUONEB) 0.5 mg-3 mg(2.5 mg base)/3 mL nebu Inhale 3 mL as instructed every 6 hours as needed for wheezing/shortness of breath. 120 Vial 3 mupirocin (BACTROBAN) 2 % ointment mupirocin 2 % topical ointment APPLY TO THE AFFECTED AREA(S) THREE TIMES DAILY NEEDED metoprolol tartrate, short acting, (LOPRESSOR) 25 mg tablet Take 50 mg by mouth twice daily. isosorbide mononitrate ER (IMDUR) 30 mg 24 hr tablet Take 30 mg by mouth once daily. ondansetron (ZOFRAN) 8 mg tablet Take 1 tablet by mouth every 8 hours as needed for nausea/vomiting. (Patient not taking: Reported on 04/01/2022) 90 tablet 1 cilostazol (PLETAL) 100 mg tablet Take 1 tablet by mouth twice daily. clopidogrel (PLAVIX) 75 mg tablet Take 1 tablet by mouth once daily. aspirin 81 mg chewable tablet Take 81 mg by mouth once daily. albuterol HFA (PROVENTIL HFA, VENTOLIN HFA) 90 mcg/actuation inhaler albuterol sulfate HFA 90 mcg/actuation aerosol inhaler INHALE 2 PUFFS BY MOUTH EVERY 4 HOURS NEEDED for SHORTNESS OF BREATH atorvastatin (LIPITOR) 40 mg tablet Take 40 mg by mouth once daily. No current facility-administered medications for this visit. Need for Follow up: will continue to follow Referred/Supervised by: Fay/Seb ROGER Billing Type: Initial Assess/15 min 2 units Time Spent with Patient: 30 minutes Signed by: Dominique Gray MS, RDN, LD documented in this encounter [facility] 04-01-2022 Miscellaneous Notes [facility] called asking if the RX can get Fax over The pharmacy need a new Rx [phone] Fax The code need to be on the RX documented in this encounter [facility] 04-01-2022 History of Present illness Narrative Radiation Oncology - On Treatment Review (OTR) Note PATIENT NAME: Pedro Gu PATIENT DIAGNOSIS: Lung cancer, left upper lobe, pleomorphic carcinoma, stage IIb [id number], stage IIB AJCC 8th edition (chest wall invasion), PD-L1 95%, KRAS G12C mutation present PROTOCOL: no COURSE: post-operative Current dose: 1000 cGy in 5 fx Planned dose: 5400 cGy in 27 fx SUBJECTIVE: No new problems. PHYSICAL EXAM: Area Assessed: Chest KPS: 100 General Appearance: Alert and oriented. No acute distress. Chest: No respiratory distress. Lungs clear to auscultation bilaterally. IMAGING/LAB RESULTS: None TOXICITY ASSESSMENT (CTC v4.0): Fatigue: grade 0 - No symptoms Weight loss: grade 0 - No weight loss Nausea:Grade 0 - No Symptoms Radiation Dermatitis:grade 0 - No symptoms Dysphagia: grade 0 - No symptoms Esophageal Pain: Grade 0 - No symptoms Dyspnea: grade 0 (No symptoms) Treatment chart checked: Yes Patient treatment site reviewed and verified:Yes Port films reviewed and current:Yes Medications started: None ASSESSMENT/PLAN: Patient doing well. Chart and imaging reviewed. Continue radiation as outlined. Jyoti Limon MD documented in this encounter [facility] 03-26-2022 History of Present illness Narrative Radiation Oncology - On Treatment Review (OTR) Note PATIENT NAME: Pedro Gu PATIENT DIAGNOSIS: Lung cancer, left upper lobe, pleomorphic carcinoma, stage IIb [id number], stage IIB AJCC 8th edition (chest wall invasion), PD-L1 95%, KRAS G12C mutation present PROTOCOL: no COURSE: post-operative Current dose: 200 cGy in 1 fx Planned dose: 5400 cGy in 27 fx SUBJECTIVE: Here to start radiation, doing well. PHYSICAL EXAM: Area Assessed: Chest KPS: 100 General Appearance: Alert and oriented. No acute distress. Chest: No respiratory distress. Lungs clear to auscultation bilaterally. IMAGING/LAB RESULTS: None TOXICITY ASSESSMENT (CTC v4.0): Fatigue: grade 0 - No symptoms Weight loss: grade 0 - No weight loss Nausea:Grade 0 - No Symptoms Radiation Dermatitis:grade 0 - No symptoms Dysphagia: grade 0 - No symptoms Esophageal Pain: Grade 0 - No symptoms Dyspnea: grade 0 (No symptoms) Treatment chart checked: Yes Patient treatment site reviewed and verified:Yes Port films reviewed and current:Yes Medications started: None ASSESSMENT/PLAN: Patient starting radiation today. Plan of care and expectations again reviewed. Plan, MU calculations and qa report reviewed. Initial imaging including cone beam ct and verification reviewed and approved. First treatment given. Continue radiation as prescribed. Jyoti Limon MD documented in this encounter [facility] 03-20-2022 History of Present illness Narrative sim documented in this encounter [facility] 03-19-2022 History of Present illness Narrative PATIENT NAME: Pedro Gu DATE: 03/19/2022 PRIMARY CARE PHYSICIAN: Dr. Christina Azul OTHER PHYSICIANS: Dr. Verito Whelan, Dr. Marianne Fields, Dr. Limon Portions of this encounter note have been copied from the note from 02/20/2022 and has been updated where appropriate, and reflect my current medical decision making from today. CC: This is a 66 year old male with lung cancer, seen for scheduled follow-up. INTERIM HISTORY: Pedro Gu returns for follow-up and labs. He saw dermatology and was started on 12 days of minocycline. The skin rash did not clear up totally so he was given another 14 days of minocycline. The rash is gradually improving. Patient states he was told his rash is rosacea. A biopsy was performed but the results are not yet available. Otherwise, there has been no medical changes. His energy is a little better. He denies fevers, chills, night sweats and signs/symptoms of infection. He denies bleeding and abnormal bruising. His shortness of breath at rest and exertion is unchanged. He is scheduled to start radiation on 03/26/2022 and was told he would have radiation for 5 to 5-1/2 weeks. Overall doing fairly well today and offers no new complaints. MEDICATIONS: Current Outpatient Medications Medication Sig STIOLTO RESPIMAT 2.5-2.5 mcg/actuation INHALE TWO (2) PUFFS BY MOUTH ONCE DAILY methylPREDNISolone (MEDROL, DAVID,) 4 mg Dose-Pack Take as directed. Nebulizer and Compressor For Neb 1 Each as needed. Use as directed. ipratropium-albuterol (DUONEB) 0.5 mg-3 mg(2.5 mg base)/3 mL nebu Inhale 3 mL as instructed every 6 hours as needed for wheezing/shortness of breath. sulfamethoxazole-trimethoprim (BACTRIM DS,SEPTRA DS) 800-160 mg per tablet Take 1 tablet by mouth twice daily. Cephalexin 500 mg tab Take 1 tablet by mouth three times daily. mupirocin (BACTROBAN) 2 % ointment mupirocin 2 % topical ointment APPLY TO THE AFFECTED AREA(S) THREE TIMES DAILY NEEDED predniSONE (DELTASONE) 10 mg tablet DAY 1 TAKE 7 TABLETS BY MOUTH, DAY 2 TAKE 6 TABLETS, DAY 3 TAKE 5 TABLETS, DAY 4 TAKE 4 TABLETS, DAY 5 TAKE 3 TABLETS, DAY 6 TAKE 2 TABLETS, DAY 7 TAKE 1 TABLET potassium chloride (K-TAB) 10 mEq tablet Take 1 tablet by mouth once daily. FEROSUL 325 mg (65 mg iron) tablet metoprolol tartrate, short acting, (LOPRESSOR) 25 mg tablet Take 50 mg by mouth twice daily. isosorbide mononitrate ER (IMDUR) 30 mg 24 hr tablet Take 30 mg by mouth once daily. folic acid 1 mg tablet Take 1 tablet by mouth once daily. ondansetron (ZOFRAN) 8 mg tablet Take 1 tablet by mouth every 8 hours as needed for nausea/vomiting. prochlorperazine (COMPAZINE) 10 mg tablet Take 1 tablet by mouth every 6 hours as needed. cilostazol (PLETAL) 100 mg tablet Take 1 tablet by mouth twice daily. clopidogrel (PLAVIX) 75 mg tablet Take 1 tablet by mouth once daily. aspirin 81 mg chewable tablet Take 81 mg by mouth once daily. albuterol HFA (PROVENTIL HFA, VENTOLIN HFA) 90 mcg/actuation inhaler albuterol sulfate HFA 90 mcg/actuation aerosol inhaler INHALE 2 PUFFS BY MOUTH EVERY 4 HOURS NEEDED for SHORTNESS OF BREATH atorvastatin (LIPITOR) 40 mg tablet Take 40 mg by mouth once daily. No current facility-administered medications for this visit. ALLERGIES: ALLERGIES No Known Allergies PAST MEDICAL HISTORY: PAST MEDICAL HISTORY Diagnosis Date Carotid artery disease (HCC) bilateral COPD (chronic obstructive pulmonary disease) (HCC) Heart attack (HCC) History of non-ST elevation myocardial infarction (NSTEMI) HTN (hypertension) Hypertension 09/25/2021 Lung cancer (HCC) Malignant neoplasm of lower lobe of left lung (HCC) Peripheral arterial disease (HCC) 2019 R REGISTRATION COORDINATOR stent PAST SURGICAL HISTORY: PAST SURGICAL HISTORY Procedure Laterality Date BACK SURGERY HX 2019 CABG (4) VEIN GRAFTS & ARTERIAL GRAFT(S) 2016 LOWER EXTREMITY FUNNEL SETTER W/WO STENT Right 2019 right common femoral artery stent REMOVAL OF LUNG,LOBECTOMY Left 09/26/2021 VATS left upper lung wedge resection, completion lobectomy, lymph node dissection, application of Progel to staple line, intercostal nerve blocks for cancer FAMILY HISTORY: FAMILY HISTORY Problem Relation Age of Onset Lung Cancer Father Heart Attack Father Coronary Artery Disease Father SOCIAL HISTORY: Social History Tobacco Use Smoking status: Former Packs/day: 2.00 Years: 50.00 Pack years: 100.00 Types: Cigarettes Start date: 1970 Smokeless tobacco: Never Tobacco comments: was smoking on and off fully quit 09/14/21 Substance Use Topics Alcohol use: Yes Alcohol/week: 30.0 standard drinks Types: 30 Cans of Beer (12oz) per week Comment: 4-9 beers per day Drug use: Never REVIEW OF SYSTEMS: General: No weight loss, malaise or fevers. Positive fatigue. HEENT: Negative for frequent or significant headaches. No changes in hearing or vision, no nose bleeds or other nasal problems Respiratory: Negative for cough or wheezing. Chronic shortness of breath. Cardiovascular: Negative for chest pain, leg swelling or palpitations. GI: Negative for abdominal discomfort, blood in stools or black stools or change in bowel habits. Positive constipation. : No history of dysuria, frequency or incontinence. Musculoskeletal: Negative for joint pain or swelling, back pain and muscle pain. Skin: Negative for lesions, rash and itching. Positive rash. Hematology/Lymphology: Negative for prolonged bleeding, bruising easily or swollen nodes. Neuro: No history of headaches, syncope, paralysis, seizures or tremors. PHYSICAL EXAM: BP 117/78 Pulse 90 Temp 36.4 C (97.6 F) (Temporal) Resp (!) 94 Ht 167.6 cm (5' 5.98 ) Wt 59.5 kg (131 lb 3.2 oz) SpO2 97% BMI 21.19 kg/m ECOG 0 Exam limited to gross visualization where appropriate due to COVID-19. Gen.: This is an age-appropriate patient in no acute distress. Head: Appears atraumatic with no visible lesions. Eyes: Pupils equally round and reactive to light, extraocular muscles are intact. Neck: Supple. Mouth: Masked. Respiratory: Appears to be respiring comfortably. Neurologic: Nonfocal to gross visualization. Alert and oriented 3. Psychiatric: No evidence of inappropriate anxiety or depression. Skin: Visible areas of skin without lesions, wounds or petechiae. Positive rash- mainly involving face and upper back. PATHOLOGY: 09/26/2021 Left upper lobectomy and mediastinal lymphadenectomy A, H. 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 - Visceral pleural invasion present. - Tumor invades into parietal pleural/chest wall adipose tissue. - Arterial invasion present. - Five hilar/peribronchial lymph nodes, negative for tumor (0/5). - Emphysema with patchy smoking-related interstitial fibrosis. - Margins negative. B. Lymph node, level 10L, excision: - Negative for tumor (0/1). C. Lymph node, level 5, excision: - Negative for tumor (0/1). D. Lymph node, level 6, excision: - Negative for tumor (0/1). E. Lymph node, level 11L, excision: - Negative for tumor (0/1). F. Lymph node, level 12L, excision: - Negative for tumor (0/1). G. Lymph node, level 11L #2, excision: - Negative for tumor (0/1). I. Lymph node, level 11L #3, excision: - Negative for tumor (0/1). J. Lymph node, level 9L, excision: - Benign fibroadipose tissue, negative for tumor. Molecular markers: RET rearrangement negative, ROS1 negative, BRAF negative, EGFR negative, HER-2 negative, KRAS c34G>T positive, ALK 1 negative, PD-L1 95% LABS: Hemoglobin (g/dL) Date Value 03/19/2022 10.8 07/03/2021 14.2 Hematocrit (%) Date Value 03/19/2022 32.1 07/03/2021 41.8 WBC (k/uL) Date Value 03/19/2022 4.33 07/03/2021 5.83 Platelet Count (k/uL) Date Value 03/19/2022 179 07/03/2021 265 RADIOLOGY/OTHER STUDIES: 10/31/2021 Brain MRI IMPRESSION: No evidence of an acute intracranial process. No intracranial enhancing lesion to suggest metastasis. 09/25/2021 CT chest IMPRESSION: Increased peripheral left upper lobe mass with adjacent curvilinear scarlike opacity concerning for neoplasm. No other acute thoracic disease. 07/11/2021 CT neck IMPRESSION: ASYMMETRIC HIGH DENSITY WITH ILL-DEFINED MARGINS INVOLVING THE ANTERIOR ASPECT OF THE RIGHT PALATINE TONSIL WITHOUT ASSOCIATED NODULARITY. THIS IS A NONSPECIFIC FINDING AND MAY REFLECT HYPEREMIA FROM TONSILLITIS. THIS CORRESPONDS TO THE LOCATION OF FDG ACTIVITY ON THE PRIOR PET/CT EXAM. INTERVAL FOLLOW-UP IMAGING AND/OR DIRECT VISUALIZATION MAY BE OF BENEFIT TO EXCLUDE UNDERLYING SUBTLE MASS. MODERATE DEGENERATIVE CHANGES INVOLVING THE CERVICAL SPINE. MODERATE ATHEROSCLEROSIS AT THE CAROTID BIFURCATIONS. PARANASAL SINUS MUCOSAL THICKENING/SECRETIONS, DESCRIBED ABOVE. SMALL MILLIMETRIC LYMPH NODES SEEN AT SOME NECK LEVELS, NONE SIGNIFICANTLY ENLARGED BY IMAGING SIZE CRITERIA. IMPRESSION: ASYMMETRIC HIGH DENSITY WITH ILL-DEFINED MARGINS INVOLVING THE ANTERIOR ASPECT OF THE RIGHT PALATINE TONSIL WITHOUT ASSOCIATED NODULARITY. THIS IS A NONSPECIFIC FINDING AND MAY REFLECT HYPEREMIA FROM TONSILLITIS. THIS CORRESPONDS TO THE LOCATION OF FDG ACTIVITY ON THE PRIOR PET/CT EXAM. INTERVAL FOLLOW-UP IMAGING AND/OR DIRECT VISUALIZATION MAY BE OF BENEFIT TO EXCLUDE UNDERLYING SUBTLE MASS. MODERATE DEGENERATIVE CHANGES INVOLVING THE CERVICAL SPINE. MODERATE ATHEROSCLEROSIS AT THE CAROTID BIFURCATIONS. PARANASAL SINUS MUCOSAL THICKENING/SECRETIONS, DESCRIBED ABOVE. SMALL MILLIMETRIC LYMPH NODES SEEN AT SOME NECK LEVELS, NONE SIGNIFICANTLY ENLARGED BY IMAGING SIZE CRITERIA. CT neck 05/28/2021 PET scan IMPRESSION: 1. NECK: * FDG avid soft tissue mass in the right tonsil region could represent tonsillitis versus neoplastic process. Correlate with ENT exam. 2. CHEST: * Enlarging left upper lobe nodule measuring 2.7 x 1.8 cm with max SUV of 4.8 suspicious for neoplasm. No mediastinal or hilar lymphadenopathy. 3. ABDOMEN/PELVIS: * No FDG avid neoplastic process. . 4. EXTREMITIES/SKELETON: * No suspicious FDG avid osseous lesion. ASSESSMENT/PLAN: 1. 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 Status post left upper lobectomy and mediastinal lymphadenectomy 09/26/2021. The primary tumor involved the visceral and parietal pleura with evidence of invasion into the chest wall adipose tissue. Surgical margins negative. The patient recovered from surgery well. Postop it was elected to proceed with adjuvant chemotherapy consisting of cisplatin plus pemetrexed x4 cycles followed by adjuvant radiation therapy. After completing adjuvant radiation therapy adjuvant immunotherapy with nivolumab x1 year will be considered. The patient received his first cycle of chemotherapy on 11/05/2021. Unfortunately, labs obtained 11/12/2021 revealed significant renal dysfunction with a creatinine of 2.66. The patient received aggressive IV fluids and his renal function returned to baseline. His treatment was subsequently changed to carboplatin plus Alimta on 12/03/2021. When seen on 01/14/2022 for cycle 4 the patient had evidence of a skin infection and labs revealed leukopenia, therefore treatment was held. He received his last treatment with carboplatin and pemetrexed on 01/22/2022. On 02/07/2022 patient presented for follow-up and labs and was found to have a hemoglobin of 6.7. Additional labs obtained were essentially negative. No iron deficiency was identified. His stool for occult blood was also negative. He received 2 units of PRBCs. Today his hemoglobin has improved and is up to 10.8. At this time we will continue to follow him closely. Patient is scheduled to start radiation on 03/26/[address] Limon. After the patient completes his planned radiation therapy we will evaluate for adjuvant immunotherapy. 2. Centrilobular emphysema (HCC) - ICD9: 492.8, ICD10: J43.2 Long history of tobacco abuse, quit September 2021. Chronic shortness of breath and cough stable on current medications. Continue management per pulmonary/PCP. 3. Coronary artery disease Status post AMI 2015. Status post CABG x 4 in [place] 2015. Currently stable. Continue management per PCP/cardiology. 4. Peripheral vascular disease Status post balloon angioplasty right lower leg 2019. On long-term antiplatelet agents with Plavix and Pletal. Continue management per PCP/vascular surgery. 5. Abnormal right tonsil on PET scan (05/28/2021) and neck CT (07/11/2021). Radiographic abnormalities identified on baseline PET scan and neck CT. The patient was seen by [facility] on 07/26/2021. Clinical evaluation most consistent with inflammatory/post-infectious findings. No suspicion for malignancy. The patient apparently chews tobacco, and was advised to discontinue. Follow-up with ENT as indicated. 6. Renal dysfunction The patient received chemotherapy with cisplatin and pemetrexed on 11/05/2021. Subsequent labs revealed significant renal dysfunction with creatinine elevation 2.66 on 11/12/2021. With IV fluids (and discontinuation of cisplatin) the patient's renal function has improved. We will monitor closely. 7. Hypotension The patient has a long history of hypertension, previously on multiple blood pressure medications. Since starting chemotherapy his blood pressures have dropped, and his medications have been adjusted. We will continue to monitor and adjust BP medications accordingly. 8. Anemia due to antineoplastic chemotherapy - ICD9: 285.3, E933.1, ICD10: D64.81, T45.1X5A Progressive anemia since the start of chemotherapy. Labs revealed no evidence of iron deficiency. The patient is receiving treatment with curative intent, therefore we will hold off on EPO. Will consider blood transfusion if hemoglobin drops below 8. On 02/07/2022 his hemoglobin had dropped to 6.7. He received 2 units of PRBCs. Additional lab work was negative. No iron deficiency was identified. Stool for occult blood was negative. Today his hemoglobin has improved to 10.8. 9. Skin infection - ICD9: 686.9, ICD10: L08.9; Rash - ICD9: 782.1, ICD10: R21 Patient was seen by dermatology. He is on his second course of minocycline. A biopsy was taken of the rash but the results are still pending. Patient was told it is likely rosacea. Brent Miller APRN.RONAL I spent a total of 30 minutes on the date of the service which included preparing to see the patient, [id number] patient care, completing clinical documentation, obtaining and/or reviewing separately obtained history, performing a medically appropriate examination, counseling and educating the patient/family/caregiver, ordering medications, tests, or procedures, independently interpreting results (not separately reported), and communicating results to the patient/family/caregiver. documented in this encounter [facility] 03-14-2022 History of Present illness Narrative PEDRO GU [id number] 03/14/2022 [facility] Radiation Oncology Department SIMULATION NOTE DATE OF SIMULATION: 03/14/2022 THERAPIST: Barbara Severino MACHINE: Siemens [employer] mCT DIAGNOSIS: Malignant neoplasm of upper lobe, left bronchus or lungC34.12 AREA: LUNG CONTRAST: None <Select> Consent in Epic: Yes PATIENT POSITION: Supine. FIXATION DEVICE: In order to achieve accurate and reproducible treatments, the patient is immobilized with THE WINGBOARD, B PAD, CUSTOM VACBAG, SBRT KNEE SPONGE 4DCT WAS UTILIZED AT [facility] A time-out was conducted and recorded by the therapist. CT scan was completed for target localization and planning. Field arrangement will be determined after plan has been completed. The patient is scheduled for a verification simulation on the treatment machine to ensure proper set-up and field arrangement is correct prior to the first treatment of primary and boost hall if applicable. Patient education will be completed per nursing. Electronically Signed Deon Limon M.D. / GABRIELLE 21:18 PM documented in this encounter [facility] 03-14-2022 History of Present illness Narrative PEDRO GU [id number] 03/14/2022 [facility] Department of Radiation Oncology Treatment Planning Note For reasons stated in the consult note, Pedro Gu is a candidate for radiation therapy. Based on review and interpretation of the relevant diagnostic studies together with the exam findings, Pedro Gu was simulated on 03/14/2022 at which time the target volume and/or requisite hall were delineated, as indicated in the simulation note, to be treated according to the prescription. An ITV was created from all the phases of respiratory motion captured by the 4DCT image sets. Motion management allowed for design of patient specific planning target volume and reduced the radiation exposure to normal tissues. The treatment target and organs at risk were contoured on the simulation scan using the fused PET. Pulmonary function testing was reviewed. After reviewing multiple treatment plans with dosimetry, the best plan was approved to deliver the prescribed course of radiation to the target area using inverse planning to allow for the best isodose distribution, treating to the 97.5% isodose line with 6MV and 2 hall. Custom MLC asym jaws for IMRT were the treatment devices used to shape/modify the beams. Limiting dose to normal tissue was confirmed upon review of the calculated dose volume histogram. IMRT planning was used because it best met the dose/volume constraints for the organs at risk for this patient, better than what could be achieved using conventional or 3D planning. The specific dose requirements for the PTV, organs at risk and dose-volume histograms are contained in this treatment plan and/or elsewhere in the medical record. A completed summary of this plan dated 03/21/22 incorporated herein by reference includes dose, beam arrangements, energy, blocking, isodose distribution, and/or ports and DVH. Electronically Signed Deon Limon M.D. 24:37 PM documented in this encounter [facility] 02-27-2022 Miscellaneous Notes Called [facility] spoke with Delfina. They received this referral and patient was seen at their office today by Cristy davey PA at 10:00. They will be faxing her note from this visit to our office once it is completed. Rolanda Oneil Pss Records faxed to [facility]. [facility] derm scheduling out to April. Tomasa will you please fax records to [facility]essa [phone]. They will call pt to schedule, demo in your box. Thanks! Clerical: Please schedule pt w/ [facility]. Pt willing to see local or [facility]. Thanks, Denita Rai, RN Signed. Brent Miller APRN.RONAL Pt reports that the rash on his face is worse. Describes rash as red, raised, and blotchy. Itchy at times. Reports that areas of skin are beginning to peel off. Using Mupirocin 2% ointment w/o any improvement. Notes the rash is keeping him from going outside of the house. Reports that he sits in his room and drinks beer all day. Pt has not seen a mechanic for his skin issue. Consult order pended if you agree. Denita Rai RN documented in this encounter [facility] 02-20-2022 History of Present illness Narrative PATIENT NAME: Pedro Gu DATE: 02/20/2022 PRIMARY CARE PHYSICIAN: Dr. Christina Azul OTHER PHYSICIANS: Dr. Verito Whelan, Dr. Marianne Fields, Dr. Limon Portions of this encounter note have been copied from the note from 02/07/2022 and has been updated where appropriate, and reflect my current medical decision making from today. CC: This is a 66 year old male with lung cancer, seen for scheduled follow-up. INTERIM HISTORY: Pedro Gu returns for follow-up and labs. At his last visit he was found to be anemic with a hemoglobin of 6.7. He received 2 units of PRBCs and tolerated it well. His stool was negative for occult blood. His iron studies did not reveal iron deficiency anemia. The patient is feeling fair today. He is forcing himself to stay active and working on projects. He believes that the skin rash is still getting worse. The skin rash is still pruritic. He is applying [id number] lotion. He denies fevers, chills, night sweats and signs/symptoms of infection. No bleeding or abnormal bruising. A SIM for radiation is planned on 03/13/2022. MEDICATIONS: Current Outpatient Medications Medication Sig methylPREDNISolone (MEDROL, DAVID,) 4 mg Dose-Pack Take as directed. Nebulizer and Compressor For Neb 1 Each as needed. Use as directed. ipratropium-albuterol (DUONEB) 0.5 mg-3 mg(2.5 mg base)/3 mL nebu Inhale 3 mL as instructed every 6 hours as needed for wheezing/shortness of breath. tiotropium-olodaterol (STIOLTO RESPIMAT) 2.5-2.5 mcg/actuation Inhale 2 Puffs as instructed once daily. sulfamethoxazole-trimethoprim (BACTRIM DS,SEPTRA DS) 800-160 mg per tablet Take 1 tablet by mouth twice daily. Cephalexin 500 mg tab Take 1 tablet by mouth three times daily. mupirocin (BACTROBAN) 2 % ointment mupirocin 2 % topical ointment APPLY TO THE AFFECTED AREA(S) THREE TIMES DAILY NEEDED predniSONE (DELTASONE) 10 mg tablet DAY 1 TAKE 7 TABLETS BY MOUTH, DAY 2 TAKE 6 TABLETS, DAY 3 TAKE 5 TABLETS, DAY 4 TAKE 4 TABLETS, DAY 5 TAKE 3 TABLETS, DAY 6 TAKE 2 TABLETS, DAY 7 TAKE 1 TABLET potassium chloride (K-TAB) 10 mEq tablet Take 1 tablet by mouth once daily. FEROSUL 325 mg (65 mg iron) tablet metoprolol tartrate, short acting, (LOPRESSOR) 25 mg tablet Take 50 mg by mouth twice daily. isosorbide mononitrate ER (IMDUR) 30 mg 24 hr tablet Take 30 mg by mouth once daily. folic acid 1 mg tablet Take 1 tablet by mouth once daily. ondansetron (ZOFRAN) 8 mg tablet Take 1 tablet by mouth every 8 hours as needed for nausea/vomiting. prochlorperazine (COMPAZINE) 10 mg tablet Take 1 tablet by mouth every 6 hours as needed. cilostazol (PLETAL) 100 mg tablet Take 1 tablet by mouth twice daily. clopidogrel (PLAVIX) 75 mg tablet Take 1 tablet by mouth once daily. aspirin 81 mg chewable tablet Take 81 mg by mouth once daily. albuterol HFA (PROVENTIL HFA, VENTOLIN HFA) 90 mcg/actuation inhaler albuterol sulfate HFA 90 mcg/actuation aerosol inhaler INHALE 2 PUFFS BY MOUTH EVERY 4 HOURS NEEDED for SHORTNESS OF BREATH atorvastatin (LIPITOR) 40 mg tablet Take 40 mg by mouth once daily. No current facility-administered medications for this visit. ALLERGIES: ALLERGIES No Known Allergies PAST MEDICAL HISTORY: PAST MEDICAL HISTORY Diagnosis Date Carotid artery disease (HCC) bilateral COPD (chronic obstructive pulmonary disease) (HCC) Heart attack (HCC) History of non-ST elevation myocardial infarction (NSTEMI) HTN (hypertension) Hypertension 09/25/2021 Lung cancer (HCC) Malignant neoplasm of lower lobe of left lung (HCC) Peripheral arterial disease (HCC) 2019 R REGISTRATION COORDINATOR stent PAST SURGICAL HISTORY: PAST SURGICAL HISTORY Procedure Laterality Date BACK SURGERY HX 2019 CABG (4) VEIN GRAFTS & ARTERIAL GRAFT(S) 2016 LOWER EXTREMITY FUNNEL SETTER W/WO STENT Right 2019 right common femoral artery stent REMOVAL OF LUNG,LOBECTOMY Left 09/26/2021 VATS left upper lung wedge resection, completion lobectomy, lymph node dissection, application of Progel to staple line, intercostal nerve blocks for cancer FAMILY HISTORY: FAMILY HISTORY Problem Relation Age of Onset Lung Cancer Father Heart Attack Father Coronary Artery Disease Father SOCIAL HISTORY: Social History Tobacco Use Smoking status: Former Smoker Packs/day: 2.00 Years: 50.00 Pack years: 100.00 Types: Cigarettes Start date: 1970 Smokeless tobacco: Never Used Tobacco comment: was smoking on and off fully quit 09/14/21 Substance Use Topics Alcohol use: Yes Alcohol/week: 30.0 standard drinks Types: 30 Cans of Beer (12oz) per week Comment: 4-9 beers per day Drug use: Never REVIEW OF SYSTEMS: General: No weight loss, malaise or fevers. HEENT: Negative for frequent or significant headaches. No changes in hearing or vision, no nose bleeds or other nasal problems Respiratory: Negative for cough, wheezing or shortness of breath. Cardiovascular: Negative for chest pain, leg swelling or palpitations. GI: Negative for abdominal discomfort, blood in stools or black stools or change in bowel habits. Positive constipation. : No history of dysuria, frequency or incontinence. Musculoskeletal: Negative for joint pain or swelling, back pain and muscle pain. Skin: Negative for lesions, rash and itching. Hematology/Lymphology: Negative for prolonged bleeding, bruising easily or swollen nodes. Neuro: No history of headaches, syncope, paralysis, seizures or tremors. PHYSICAL EXAM: BP 95/60 Pulse 108 Temp 36.2 C (97.2 F) (Temporal) Resp 16 Ht 167.6 cm (5' 5.98 ) Wt 59.9 kg (132 lb) SpO2 98% BMI 21.32 kg/m ECOG 0 Exam limited to gross visualization where appropriate due to COVID-19. Gen.: This is an age-appropriate patient in no acute distress. Head: Appears atraumatic with no visible lesions. Eyes: Pupils equally round and reactive to light, extraocular muscles are intact. Neck: Supple. Mouth: Masked. Respiratory: Appears to be respiring comfortably. Neurologic: Nonfocal to gross visualization. Alert and oriented 3. Psychiatric: No evidence of inappropriate anxiety or depression. Skin: Visible areas of skin without rash, lesions, wounds or petechiae. PATHOLOGY: 09/26/2021 Left upper lobectomy and mediastinal lymphadenectomy A, H. 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 - Visceral pleural invasion present. - Tumor invades into parietal pleural/chest wall adipose tissue. - Arterial invasion present. - Five hilar/peribronchial lymph nodes, negative for tumor (0/5). - Emphysema with patchy smoking-related interstitial fibrosis. - Margins negative. B. Lymph node, level 10L, excision: - Negative for tumor (0/1). C. Lymph node, level 5, excision: - Negative for tumor (0/1). D. Lymph node, level 6, excision: - Negative for tumor (0/1). E. Lymph node, level 11L, excision: - Negative for tumor (0/1). F. Lymph node, level 12L, excision: - Negative for tumor (0/1). G. Lymph node, level 11L #2, excision: - Negative for tumor (0/1). I. Lymph node, level 11L #3, excision: - Negative for tumor (0/1). J. Lymph node, level 9L, excision: - Benign fibroadipose tissue, negative for tumor. Molecular markers: RET rearrangement negative, ROS1 negative, BRAF negative, EGFR negative, HER-2 negative, KRAS c34G>T positive, ALK 1 negative, PD-L1 95% LABS: Hemoglobin (g/dL) Date Value 02/20/2022 10.2 07/03/2021 14.2 Hematocrit (%) Date Value 02/20/2022 30.4 07/03/2021 41.8 WBC (k/uL) Date Value 02/20/2022 5.46 07/03/2021 5.83 Platelet Count (k/uL) Date Value 02/20/2022 190 07/03/2021 265 RADIOLOGY/OTHER STUDIES: 10/31/2021 Brain MRI IMPRESSION: No evidence of an acute intracranial process. No intracranial enhancing lesion to suggest metastasis. 09/25/2021 CT chest IMPRESSION: Increased peripheral left upper lobe mass with adjacent curvilinear scarlike opacity concerning for neoplasm. No other acute thoracic disease. 07/11/2021 CT neck IMPRESSION: ASYMMETRIC HIGH DENSITY WITH ILL-DEFINED MARGINS INVOLVING THE ANTERIOR ASPECT OF THE RIGHT PALATINE TONSIL WITHOUT ASSOCIATED NODULARITY. THIS IS A NONSPECIFIC FINDING AND MAY REFLECT HYPEREMIA FROM TONSILLITIS. THIS CORRESPONDS TO THE LOCATION OF FDG ACTIVITY ON THE PRIOR PET/CT EXAM. INTERVAL FOLLOW-UP IMAGING AND/OR DIRECT VISUALIZATION MAY BE OF BENEFIT TO EXCLUDE UNDERLYING SUBTLE MASS. MODERATE DEGENERATIVE CHANGES INVOLVING THE CERVICAL SPINE. MODERATE ATHEROSCLEROSIS AT THE CAROTID BIFURCATIONS. PARANASAL SINUS MUCOSAL THICKENING/SECRETIONS, DESCRIBED ABOVE. SMALL MILLIMETRIC LYMPH NODES SEEN AT SOME NECK LEVELS, NONE SIGNIFICANTLY ENLARGED BY IMAGING SIZE CRITERIA. IMPRESSION: ASYMMETRIC HIGH DENSITY WITH ILL-DEFINED MARGINS INVOLVING THE ANTERIOR ASPECT OF THE RIGHT PALATINE TONSIL WITHOUT ASSOCIATED NODULARITY. THIS IS A NONSPECIFIC FINDING AND MAY REFLECT HYPEREMIA FROM TONSILLITIS. THIS CORRESPONDS TO THE LOCATION OF FDG ACTIVITY ON THE PRIOR PET/CT EXAM. INTERVAL FOLLOW-UP IMAGING AND/OR DIRECT VISUALIZATION MAY BE OF BENEFIT TO EXCLUDE UNDERLYING SUBTLE MASS. MODERATE DEGENERATIVE CHANGES INVOLVING THE CERVICAL SPINE. MODERATE ATHEROSCLEROSIS AT THE CAROTID BIFURCATIONS. PARANASAL SINUS MUCOSAL THICKENING/SECRETIONS, DESCRIBED ABOVE. SMALL MILLIMETRIC LYMPH NODES SEEN AT SOME NECK LEVELS, NONE SIGNIFICANTLY ENLARGED BY IMAGING SIZE CRITERIA. CT neck 05/28/2021 PET scan IMPRESSION: 1. NECK: * FDG avid soft tissue mass in the right tonsil region could represent tonsillitis versus neoplastic process. Correlate with ENT exam. 2. CHEST: * Enlarging left upper lobe nodule measuring 2.7 x 1.8 cm with max SUV of 4.8 suspicious for neoplasm. No mediastinal or hilar lymphadenopathy. 3. ABDOMEN/PELVIS: * No FDG avid neoplastic process. . 4. EXTREMITIES/SKELETON: * No suspicious FDG avid osseous lesion. ASSESSMENT/PLAN: 1. 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 Status post left upper lobectomy and mediastinal lymphadenectomy 09/26/2021. The primary tumor involved the visceral and parietal pleura with evidence of invasion into the chest wall adipose tissue. Surgical margins negative. The patient recovered from surgery well. Postop it was elected to proceed with adjuvant chemotherapy consisting of cisplatin plus pemetrexed x4 cycles followed by adjuvant radiation therapy. After completing adjuvant radiation therapy adjuvant immunotherapy with nivolumab x1 year will be considered. The patient received his first cycle of chemotherapy on 11/05/2021. Unfortunately, labs obtained 11/12/2021 revealed significant renal dysfunction with a creatinine of 2.66. The patient received aggressive IV fluids and his renal function returned to baseline. His treatment was subsequently changed to carboplatin plus Alimta on 12/03/2021. When seen on 01/14/2022 for cycle 4 the patient had evidence of a skin infection and labs revealed leukopenia, therefore treatment was held. He received his last treatment with carboplatin and pemetrexed on 01/22/2022. On 02/07/2022 patient presented for follow-up and labs and was found to have a hemoglobin of 6.7. Additional labs obtained were essentially negative. No iron deficiency was identified. His stool for occult blood was also negative. He received 2 units of PRBCs. Today his hemoglobin has improved and is up to 10.2. At this time we will continue to follow him closely. We will see him back for follow-up on 03/13/2022 at the same day he follows up with Dr. Limon. Patient saw Dr. Limon and a SIM is planned on 03/13/2022 in preparation for adjuvant radiation therapy. After the patient completes his planned radiation therapy we will evaluate for adjuvant immunotherapy. 2. Centrilobular emphysema (HCC) - ICD9: 492.8, ICD10: J43.2 Long history of tobacco abuse, quit September 2021. Chronic shortness of breath and cough stable on current medications. Continue management per pulmonary/PCP. 3. Coronary artery disease Status post AMI 2015. Status post CABG x 4 in [place] 2015. Currently stable. Continue management per PCP/cardiology. 4. Peripheral vascular disease Status post balloon angioplasty right lower leg 2019. On long-term antiplatelet agents with Plavix and Pletal. Continue management per PCP/vascular surgery. 5. Abnormal right tonsil on PET scan (05/28/2021) and neck CT (07/11/2021). Radiographic abnormalities identified on baseline PET scan and neck CT. The patient was seen by [facility] on 07/26/2021. Clinical evaluation most consistent with inflammatory/post-infectious findings. No suspicion for malignancy. The patient apparently chews tobacco, and was advised to discontinue. Follow-up with ENT as indicated. 6. Renal dysfunction The patient received chemotherapy with cisplatin and pemetrexed on 11/05/2021. Subsequent labs revealed significant renal dysfunction with creatinine elevation 2.66 on 11/12/2021. With IV fluids (and discontinuation of cisplatin) the patient's renal function has improved. We will monitor closely. 7. Hypotension The patient has a long history of hypertension, previously on multiple blood pressure medications. Since starting chemotherapy his blood pressures have dropped, and his medications have been adjusted. We will continue to monitor and adjust BP medications accordingly. 8. Anemia due to antineoplastic chemotherapy - ICD9: 285.3, E933.1, ICD10: D64.81, T45.1X5A Progressive anemia since the start of chemotherapy. Labs revealed no evidence of iron deficiency. The patient is receiving treatment with curative intent, therefore we will hold off on EPO. Will consider blood transfusion if hemoglobin drops below 8. On 02/07/2022 his hemoglobin had dropped to 6.7. He received 2 units of PRBCs. Additional lab work was negative. No iron deficiency was identified. Stool for occult blood was negative. Today his hemoglobin has improved to 10.2. Brent Miller APRN.RONAL documented in this encounter [facility] 02-11-2022 Miscellaneous Notes Pt notified and verbalizes understanding. Advised he call back if his symptoms persist. Denita Rai RN Script pended. Call placed to pt. No answer. Voicemail full. Unable to leave a message. Denita Rai RN Can try a medrol-dose pack. Thanks. Brent Miller APRN.RN DERMATOLOGY Pt c/o sores/rash to face, neck, shoulders, and back. States he's had a rash for the last 5 weeks, but the new areas appear different than his previous rash. C/o itching. Had an old script for Bactrim that he started taking over the weekend. Has not taken Benadryl. States he reached out to his PCP who advised he speak w/ our office since his rash was likely treatment related. Pt would like to be seen if possible. Denita Rai RN documented in this encounter [facility] 02-07-2022 Miscellaneous Notes Patient sent to [facility] for [facility]SC. Faxed order to [facility] scheduling February 07, 2022 4:31 PM And the department is going to work with patient tomorrow. Lisa Figueroa documented in this encounter [facility] 02-07-2022 History of Present illness Narrative PATIENT NAME: Pedro Gu DATE: 02/07/2022 PRIMARY CARE PHYSICIAN: Dr. Christina Azul OTHER PHYSICIANS: Dr. Verito Whelan, Dr. Marianne Fields, Dr. Limon Portions of this encounter note have been copied from the note from 01/22/2022 and has been updated where appropriate, and reflect my current medical decision making from today. CC: This is a 66 year old male with lung cancer, seen for scheduled follow-up. INTERIM HISTORY: Pedro Gu returns for follow-up and labs. He received his last treatment with carboplatin and pemetrexed on 01/22/2022. There has been no significant medical changes since his last visit. Since his last treatment he has been feeling down on energy. Sometimes he is tired. He has not been sleeping very good. He says he lost his spunk . He has occasional shortness of breath. He is trying to get his appetite back. He thinks that within the next month he will be able to gain the weight he has lost. He denies bleeding and abnormal bruising. He denies black tarry stools. No fever, chills, night sweats or signs/symptoms of infection. Since his last visit he saw Dr. Limon and a SIM for radiation is planned on 03/13/2022. MEDICATIONS: Current Outpatient Medications Medication Sig Nebulizer and Compressor For Neb 1 Each as needed. Use as directed. ipratropium-albuterol (DUONEB) 0.5 mg-3 mg(2.5 mg base)/3 mL nebu Inhale 3 mL as instructed every 6 hours as needed for wheezing/shortness of breath. tiotropium-olodaterol (STIOLTO RESPIMAT) 2.5-2.5 mcg/actuation Inhale 2 Puffs as instructed once daily. sulfamethoxazole-trimethoprim (BACTRIM DS,SEPTRA DS) 800-160 mg per tablet Take 1 tablet by mouth twice daily. Cephalexin 500 mg tab Take 1 tablet by mouth three times daily. mupirocin (BACTROBAN) 2 % ointment mupirocin 2 % topical ointment APPLY TO THE AFFECTED AREA(S) THREE TIMES DAILY NEEDED predniSONE (DELTASONE) 10 mg tablet DAY 1 TAKE 7 TABLETS BY MOUTH, DAY 2 TAKE 6 TABLETS, DAY 3 TAKE 5 TABLETS, DAY 4 TAKE 4 TABLETS, DAY 5 TAKE 3 TABLETS, DAY 6 TAKE 2 TABLETS, DAY 7 TAKE 1 TABLET potassium chloride (K-TAB) 10 mEq tablet Take 1 tablet by mouth once daily. FEROSUL 325 mg (65 mg iron) tablet metoprolol tartrate, short acting, (LOPRESSOR) 25 mg tablet Take 50 mg by mouth twice daily. isosorbide mononitrate ER (IMDUR) 30 mg 24 hr tablet Take 30 mg by mouth once daily. folic acid 1 mg tablet Take 1 tablet by mouth once daily. ondansetron (ZOFRAN) 8 mg tablet Take 1 tablet by mouth every 8 hours as needed for nausea/vomiting. prochlorperazine (COMPAZINE) 10 mg tablet Take 1 tablet by mouth every 6 hours as needed. cilostazol (PLETAL) 100 mg tablet Take 1 tablet by mouth twice daily. clopidogrel (PLAVIX) 75 mg tablet Take 1 tablet by mouth once daily. aspirin 81 mg chewable tablet Take 81 mg by mouth once daily. albuterol HFA (PROVENTIL HFA, VENTOLIN HFA) 90 mcg/actuation inhaler albuterol sulfate HFA 90 mcg/actuation aerosol inhaler INHALE 2 PUFFS BY MOUTH EVERY 4 HOURS NEEDED for SHORTNESS OF BREATH atorvastatin (LIPITOR) 40 mg tablet Take 40 mg by mouth once daily. No current facility-administered medications for this visit. ALLERGIES: ALLERGIES No Known Allergies PAST MEDICAL HISTORY: PAST MEDICAL HISTORY Diagnosis Date Carotid artery disease (HCC) bilateral COPD (chronic obstructive pulmonary disease) (HCC) Heart attack (HCC) History of non-ST elevation myocardial infarction (NSTEMI) HTN (hypertension) Hypertension 09/25/2021 Lung cancer (HCC) Malignant neoplasm of lower lobe of left lung (HCC) Peripheral arterial disease (HCC) 2019 R REGISTRATION COORDINATOR stent PAST SURGICAL HISTORY: PAST SURGICAL HISTORY Procedure Laterality Date BACK SURGERY HX 2019 CABG (4) VEIN GRAFTS & ARTERIAL GRAFT(S) 2016 LOWER EXTREMITY FUNNEL SETTER W/WO STENT Right 2019 right common femoral artery stent REMOVAL OF LUNG,LOBECTOMY Left 09/26/2021 VATS left upper lung wedge resection, completion lobectomy, lymph node dissection, application of Progel to staple line, intercostal nerve blocks for cancer FAMILY HISTORY: FAMILY HISTORY Problem Relation Age of Onset Lung Cancer Father Heart Attack Father Coronary Artery Disease Father SOCIAL HISTORY: Social History Tobacco Use Smoking status: Former Smoker Packs/day: 2.00 Years: 50.00 Pack years: 100.00 Types: Cigarettes Start date: 1970 Smokeless tobacco: Never Used Tobacco comment: was smoking on and off fully quit 09/14/21 Substance Use Topics Alcohol use: Yes Alcohol/week: 30.0 standard drinks Types: 30 Cans of Beer (12oz) per week Comment: 4-9 beers per day Drug use: Never REVIEW OF SYSTEMS: General: No weight loss, malaise or fevers. HEENT: Negative for frequent or significant headaches. No changes in hearing or vision, no nose bleeds or other nasal problems Respiratory: Negative for cough, wheezing or shortness of breath. Cardiovascular: Negative for chest pain, leg swelling or palpitations. GI: Negative for abdominal discomfort, blood in stools or black stools or change in bowel habits. Positive constipation. : No history of dysuria, frequency or incontinence. Musculoskeletal: Negative for joint pain or swelling, back pain and muscle pain. Skin: Negative for lesions, rash and itching. Hematology/Lymphology: Negative for prolonged bleeding, bruising easily or swollen nodes. Neuro: No history of headaches, syncope, paralysis, seizures or tremors. PHYSICAL EXAM: BP 110/59 Pulse 110 Temp 36.4 C (97.6 F) (Temporal) Resp 16 Ht 167.6 cm (5' 5.98 ) Wt 59.4 kg (131 lb) SpO2 98% BMI 21.15 kg/m ECOG 0 Exam limited to gross visualization where appropriate due to COVID-19. Gen.: This is an age-appropriate patient in no acute distress. Head: Appears atraumatic with no visible lesions. Eyes: Pupils equally round and reactive to light, extraocular muscles are intact. Neck: Supple. Mouth: Masked. Respiratory: Appears to be respiring comfortably. Neurologic: Nonfocal to gross visualization. Alert and oriented 3. Psychiatric: No evidence of inappropriate anxiety or depression. Skin: Visible areas of skin without rash, lesions, wounds or petechiae. PATHOLOGY: 09/26/2021 Left upper lobectomy and mediastinal lymphadenectomy A, H. 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 - Visceral pleural invasion present. - Tumor invades into parietal pleural/chest wall adipose tissue. - Arterial invasion present. - Five hilar/peribronchial lymph nodes, negative for tumor (0/5). - Emphysema with patchy smoking-related interstitial fibrosis. - Margins negative. B. Lymph node, level 10L, excision: - Negative for tumor (0/1). C. Lymph node, level 5, excision: - Negative for tumor (0/1). D. Lymph node, level 6, excision: - Negative for tumor (0/1). E. Lymph node, level 11L, excision: - Negative for tumor (0/1). F. Lymph node, level 12L, excision: - Negative for tumor (0/1). G. Lymph node, level 11L #2, excision: - Negative for tumor (0/1). I. Lymph node, level 11L #3, excision: - Negative for tumor (0/1). J. Lymph node, level 9L, excision: - Benign fibroadipose tissue, negative for tumor. Molecular markers: RET rearrangement negative, ROS1 negative, BRAF negative, EGFR negative, HER-2 negative, KRAS c34G>T positive, ALK 1 negative, PD-L1 95% LABS: Hemoglobin (g/dL) Date Value 02/07/2022 6.7 07/03/2021 14.2 Hematocrit (%) Date Value 02/07/2022 19.8 07/03/2021 41.8 WBC (k/uL) Date Value 02/07/2022 2.09 07/03/2021 5.83 Platelet Count (k/uL) Date Value 02/07/2022 87 07/03/2021 265 RADIOLOGY/OTHER STUDIES: 10/31/2021 Brain MRI IMPRESSION: No evidence of an acute intracranial process. No intracranial enhancing lesion to suggest metastasis. 09/25/2021 CT chest IMPRESSION: Increased peripheral left upper lobe mass with adjacent curvilinear scarlike opacity concerning for neoplasm. No other acute thoracic disease. 07/11/2021 CT neck IMPRESSION: ASYMMETRIC HIGH DENSITY WITH ILL-DEFINED MARGINS INVOLVING THE ANTERIOR ASPECT OF THE RIGHT PALATINE TONSIL WITHOUT ASSOCIATED NODULARITY. THIS IS A NONSPECIFIC FINDING AND MAY REFLECT HYPEREMIA FROM TONSILLITIS. THIS CORRESPONDS TO THE LOCATION OF FDG ACTIVITY ON THE PRIOR PET/CT EXAM. INTERVAL FOLLOW-UP IMAGING AND/OR DIRECT VISUALIZATION MAY BE OF BENEFIT TO EXCLUDE UNDERLYING SUBTLE MASS. MODERATE DEGENERATIVE CHANGES INVOLVING THE CERVICAL SPINE. MODERATE ATHEROSCLEROSIS AT THE CAROTID BIFURCATIONS. PARANASAL SINUS MUCOSAL THICKENING/SECRETIONS, DESCRIBED ABOVE. SMALL MILLIMETRIC LYMPH NODES SEEN AT SOME NECK LEVELS, NONE SIGNIFICANTLY ENLARGED BY IMAGING SIZE CRITERIA. IMPRESSION: ASYMMETRIC HIGH DENSITY WITH ILL-DEFINED MARGINS INVOLVING THE ANTERIOR ASPECT OF THE RIGHT PALATINE TONSIL WITHOUT ASSOCIATED NODULARITY. THIS IS A NONSPECIFIC FINDING AND MAY REFLECT HYPEREMIA FROM TONSILLITIS. THIS CORRESPONDS TO THE LOCATION OF FDG ACTIVITY ON THE PRIOR PET/CT EXAM. INTERVAL FOLLOW-UP IMAGING AND/OR DIRECT VISUALIZATION MAY BE OF BENEFIT TO EXCLUDE UNDERLYING SUBTLE MASS. MODERATE DEGENERATIVE CHANGES INVOLVING THE CERVICAL SPINE. MODERATE ATHEROSCLEROSIS AT THE CAROTID BIFURCATIONS. PARANASAL SINUS MUCOSAL THICKENING/SECRETIONS, DESCRIBED ABOVE. SMALL MILLIMETRIC LYMPH NODES SEEN AT SOME NECK LEVELS, NONE SIGNIFICANTLY ENLARGED BY IMAGING SIZE CRITERIA. CT neck 05/28/2021 PET scan IMPRESSION: 1. NECK: * FDG avid soft tissue mass in the right tonsil region could represent tonsillitis versus neoplastic process. Correlate with ENT exam. 2. CHEST: * Enlarging left upper lobe nodule measuring 2.7 x 1.8 cm with max SUV of 4.8 suspicious for neoplasm. No mediastinal or hilar lymphadenopathy. 3. ABDOMEN/PELVIS: * No FDG avid neoplastic process. . 4. EXTREMITIES/SKELETON: * No suspicious FDG avid osseous lesion. ASSESSMENT/PLAN: 1. 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 Status post left upper lobectomy and mediastinal lymphadenectomy 09/26/2021. The primary tumor involved the visceral and parietal pleura with evidence of invasion into the chest wall adipose tissue. Surgical margins negative. The patient recovered from surgery well. Postop it was elected to proceed with adjuvant chemotherapy consisting of cisplatin plus pemetrexed x4 cycles followed by adjuvant radiation therapy. After completing adjuvant radiation therapy adjuvant immunotherapy with nivolumab x1 year will be considered. The patient received his first cycle of chemotherapy on 11/05/2021. Unfortunately, labs obtained 11/12/2021 revealed significant renal dysfunction with a creatinine of 2.66. The patient received aggressive IV fluids and his renal function returned to baseline. His treatment was subsequently changed to carboplatin plus Alimta on 12/03/2021. When seen on 01/14/2022 for cycle 4 the patient had evidence of a skin infection and labs revealed leukopenia, therefore treatment was held. He received his last treatment with carboplatin and pemetrexed on 01/22/2022. Patient returns today for follow-up and labs. His hemoglobin has dropped to 6.7. We will check additional labs including retic count, LDH, ferritin and iron + TIBC. We will have him check his stool for occult blood. We will arrange for the patient to have 2 units of PRBCs. We will check a CBC in 1 week. We will see him back in 2 weeks for follow-up and labs. Patient saw Dr. Limon and a SIM is planned on 03/13/2022 in preparation for adjuvant radiation therapy. After the patient completes his planned radiation therapy we will evaluate for adjuvant immunotherapy. 2. Centrilobular emphysema (HCC) - ICD9: 492.8, ICD10: J43.2 Long history of tobacco abuse, quit September 2021. Chronic shortness of breath and cough stable on current medications. Continue management per pulmonary/PCP. 3. Coronary artery disease Status post AMI 2015. Status post CABG x 4 in [place] 2015. Currently stable. Continue management per PCP/cardiology. 4. Peripheral vascular disease Status post balloon angioplasty right lower leg 2019. On long-term antiplatelet agents with Plavix and Pletal. Continue management per PCP/vascular surgery. 5. Abnormal right tonsil on PET scan (05/28/2021) and neck CT (07/11/2021). Radiographic abnormalities identified on baseline PET scan and neck CT. The patient was seen by [facility] on 07/26/2021. Clinical evaluation most consistent with inflammatory/post-infectious findings. No suspicion for malignancy. The patient apparently chews tobacco, and was advised to discontinue. Follow-up with ENT as indicated. 6. Renal dysfunction The patient received chemotherapy with cisplatin and pemetrexed on 11/05/2021. Subsequent labs revealed significant renal dysfunction with creatinine elevation 2.66 on 11/12/2021. With IV fluids (and discontinuation of cisplatin) the patient's renal function has improved. We will monitor closely. 7. Hypotension The patient has a long history of hypertension, previously on multiple blood pressure medications. Since starting chemotherapy his blood pressures have dropped, and his medications have been adjusted. We will continue to monitor and adjust BP medications accordingly. 8. Anemia due to antineoplastic chemotherapy - ICD9: 285.3, E933.1, ICD10: D64.81, T45.1X5A Progressive anemia since the start of chemotherapy. Labs revealed no evidence of iron deficiency. The patient is receiving treatment with curative intent, therefore we will hold off on EPO. Will consider blood transfusion if hemoglobin drops below 8. His hemoglobin has dropped to 6.7. We will check additional labs including retic count, LDH, ferritin and iron + TIBC. We will have him check his stool for occult blood. We will arrange for the patient to have 2 units of PRBCs. Brent Miller APRN.RONAL documented in this encounter [facility] 01-30-2022 Nurse Note Radiation Therapy - Patient Education Note PATIENT NAME: Pedro Gu PATIENT January 30, 2022 [facility] FACILITY/LOCATION: [facility] READINESS TO LEARN Cognitive Ability: Alert and oriented Motivation to learn: Interested Family Support: Unable to assess - Family not present Instruction provide to: Patient Patient learns best by: Multiple Methods Factors effecting learning: None Physical limitations effecting learning: None LEARNING RESPONSE Diagnosis: Pt simulated today for radiation therapy to Lung. Education Topic/Teaching Points: Radiation therapy, Side effects and OTV: Method of instruction: Written instruction - handouts Patient /Family response: Patient verbalized understanding of radiation treatments, side effects, OTV, and transportation. Follow-up plan: Recommend - Recommend continued instruction and follow up as directed Supplemental material: Informational handouts on Lung Tx and swallowing. Referral (recommendation): None, Pt denied need for social work, van service, and hip hop dance instructor. Signed by: Merissa Fam RN documented in this encounter [facility] 01-30-2022 History of Present illness Narrative Radiation Oncology -follow-up note PATIENT NAME: Pedro Gu PATIENT REQUESTING PROVIDER: Dr. Grigsby DIAGNOSIS: 66 year old male with lung cancer, left upper lobe, pleomorphic carcinoma, stage IIb [id number], stage IIB AJCC 8th edition (chest wall invasion), PD-L1 95%, KRAS G12C mutation present HPI: Patient initiated systemic chemotherapy in October with cisplatin and pemetrexed . Patient had initial issues with worsening renal function, resulting in changing chemotherapy to carboplatin plus Alimta. Patient has completed 4 cycles however although had issues with skin infection delaying the delivery of the fourth cycle. Denies chest pain. No significant cough or shortness of breath ALLERGIES No Known Allergies MEDICATIONS: Nebulizer and Compressor For Neb 1 Each as needed. Use as directed. ipratropium-albuterol (DUONEB) 0.5 mg-3 mg(2.5 mg base)/3 mL nebu Inhale 3 mL as instructed every 6 hours as needed for wheezing/shortness of breath. tiotropium-olodaterol (STIOLTO RESPIMAT) 2.5-2.5 mcg/actuation Inhale 2 Puffs as instructed once daily. sulfamethoxazole-trimethoprim (BACTRIM DS,SEPTRA DS) 800-160 mg per tablet Take 1 tablet by mouth twice daily. Cephalexin 500 mg tab Take 1 tablet by mouth three times daily. mupirocin (BACTROBAN) 2 % ointment mupirocin 2 % topical ointment APPLY TO THE AFFECTED AREA(S) THREE TIMES DAILY NEEDED predniSONE (DELTASONE) 10 mg tablet DAY 1 TAKE 7 TABLETS BY MOUTH, DAY 2 TAKE 6 TABLETS, DAY 3 TAKE 5 TABLETS, DAY 4 TAKE 4 TABLETS, DAY 5 TAKE 3 TABLETS, DAY 6 TAKE 2 TABLETS, DAY 7 TAKE 1 TABLET potassium chloride (K-TAB) 10 mEq tablet Take 1 tablet by mouth once daily. FEROSUL 325 mg (65 mg iron) tablet metoprolol tartrate, short acting, (LOPRESSOR) 25 mg tablet Take 50 mg by mouth twice daily. isosorbide mononitrate ER (IMDUR) 30 mg 24 hr tablet Take 30 mg by mouth once daily. folic acid 1 mg tablet Take 1 tablet by mouth once daily. ondansetron (ZOFRAN) 8 mg tablet Take 1 tablet by mouth every 8 hours as needed for nausea/vomiting. prochlorperazine (COMPAZINE) 10 mg tablet Take 1 tablet by mouth every 6 hours as needed. cilostazol (PLETAL) 100 mg tablet Take 1 tablet by mouth twice daily. clopidogrel (PLAVIX) 75 mg tablet Take 1 tablet by mouth once daily. aspirin 81 mg chewable tablet Take 81 mg by mouth once daily. albuterol HFA (PROVENTIL HFA, VENTOLIN HFA) 90 mcg/actuation inhaler albuterol sulfate HFA 90 mcg/actuation aerosol inhaler INHALE 2 PUFFS BY MOUTH EVERY 4 HOURS NEEDED for SHORTNESS OF BREATH atorvastatin (LIPITOR) 40 mg tablet Take 40 mg by mouth once daily. PAST MEDICAL HISTORY Diagnosis Date Carotid artery disease (HCC) bilateral COPD (chronic obstructive pulmonary disease) (HCC) Heart attack (HCC) History of non-ST elevation myocardial infarction (NSTEMI) HTN (hypertension) Hypertension 09/25/2021 Lung cancer (HCC) Malignant neoplasm of lower lobe of left lung (HCC) Peripheral arterial disease (HCC) 2019 R REGISTRATION COORDINATOR stent Prior radiation therapy, collagen vascular disease, or inflammatory bowel disease: No PAST SURGICAL HISTORY Procedure Laterality Date BACK SURGERY HX 2019 CABG (4) VEIN GRAFTS & ARTERIAL GRAFT(S) 2016 LOWER EXTREMITY FUNNEL SETTER W/WO STENT Right 2019 right common femoral artery stent REMOVAL OF LUNG,LOBECTOMY Left 09/26/2021 VATS left upper lung wedge resection, completion lobectomy, lymph node dissection, application of Progel to staple line, intercostal nerve blocks for cancer FAMILY HISTORY Problem Relation Age of Onset Lung Cancer Father Heart Attack Father Coronary Artery Disease Father Social History Tobacco Use Smoking status: Former Smoker Packs/day: 2.00 Years: 50.00 Pack years: 100.00 Types: Cigarettes Start date: 1970 Smokeless tobacco: Never Used Tobacco comment: was smoking on and off fully quit 09/14/21 Substance Use Topics Alcohol use: Yes Alcohol/week: 30.0 standard drinks Types: 30 Cans of Beer (12oz) per week Comment: 4-9 beers per day Drug use: Never COMPLETE REVIEW OF SYSTEMS: GENERAL: feeling well without fatigue, no recent change in weight NECK: denies swelling or pain in neck GI: normal appetite, tolerating PO well, BMs normal and no abdominal pain : urination is normal MUSCULOSKELETAL: denies any painful or swollen joints, no muscle aches SKIN: no rash NEURO: no numbness or paresthesias and no weakness of the extremities As noted in HPI PHYSICAL EXAM: VS: BP 106/67 Pulse 91 Temp (!) 35.9 C (96.7 F) Wt 60.3 kg (133 lb) SpO2 100% BMI 21.47 kg/m KPS: 100 General Appearance: Alert and oriented. No acute distress. HEENT: NCAT. Sclera anicteric. PERRL. EOMI. Neck: Normal ROM. No palpable cervical or supraclavicular adenopathy. Chest: No respiratory distress. Lungs clear to auscultation bilaterally, thoracotomy incision on the left well-healed. Heart: Regular rate and rhythm. Abdomen: Soft. Nontender. Nondistended. Musculoskeletal: No edema. Normal ROM in extremities. No bone or spine tenderness. Neuro: Speech fluent. Gait normal. No focal deficits. Skin: No rashes noted Lymphatics: No palpable lymphadenopathy. Hematologic: No signs of active bleeding. RADIOLOGY/LABORATORY DATA: see HPI ASSESSMENT AND PLAN: Lung cancer, left upper lobe, pleomorphic carcinoma, stage IIb [id number], stage IIB AJCC 8th edition (chest wall invasion), PD-L1 95%, KRAS G12C mutation present At this point given pathologic features including invasion into the adipose tissue outside of the pleura I do feel all adjuvant local treatment warranted. Simulation has been scheduled. Risk benefits of treatment discussed at length with patient. Plan for course of treatment to the postoperative bed using preoperative imaging anticipate dose of 54-60 Gy, using IMRT with cone beam CT image guidance.. Signed by: Jyoti Limon MD cc: Christina Azul [address] [place], [place] [address] [address] Pito Grigsby ([facility]) [address] [place] [address] [place] [id number] documented in this encounter [facility] 01-29-2022 History of Present illness Narrative PULM FUNCTION SMARTBLOCK: Provider: Verito Whelan MD Spirometry w/BD: 1 DLCO: 1 System: MC5 - [id number] documented in this encounter [facility] 01-29-2022 History of Present illness Narrative Interval history: Mr. Gu returns for follow-up. The patient underwent left upper lobectomy and mediastinal lymphadenectomy. His tumor was stage IIB (T3, N0, M0) pleomorphic carcinoma of the left upper lobe. The primary tumor involved the visceral and parietal pleura with evidence of invasion into the chest wall adipose tissue. Surgical margins negative. The patient recovered from surgery well. Postop it was elected to proceed with adjuvant chemotherapy consisting of cisplatin plus pemetrexed x4 cycles followed by adjuvant radiation therapy. After completing adjuvant radiation therapy adjuvant immunotherapy with nivolumab x1 year will be considered. The patient has been feeling well. The COPD assessment test score is 11 today (5 before surgery). He feels somewhat plugged up in the mornings and Stiolto may not be working as well. He has not returned to cigarette smoking. Extended HPI: 66 year old man with left upper lobe lung nodule discovered 1 year ago. The patient underwent transthoracic needle aspiration biopsy which was nondiagnostic and resulted in a pneumothorax. Since the lesion that mildly increased uptake, a decision was made to follow. The lesion was noted to increase in size on the CT scans from October and January 2021 (including the last 2 CTs). It has a complex cystic appearance with a solid component and located subpleurally measuring 1.6 x 2.2 cm (my measurement, no report). The patient was offered wedge resection and if malignant lobectomy at outside hospital about 1 to 2 weeks ago. However, the surgery was canceled on the day of surgery due to patient's being on Plavix. At that point, he decided to get a second opinion. The patient reports exertional shortness of breath after going up 2 flights of stairs. He is able to walk 2 miles slowly. He has claudication in the left lower extremity after walking about 1/2 mile but this does not stop him. He underwent balloon angioplasty of right-sided peripheral vascular disease with good results several years ago. He has no cough but occasionally hears himself wheeze. He reports no history of hemoptysis.He has lost 5 pounds over the past year. He has no night sweats. He reports no tuberculosis exposure, epistaxis, sinusitis. Rest of the review of systems is negative. PET scan was highly suggestive of malignancy with high uptake in the nodule without any clear evidence of metastatic lesions. However, there is a high uptake area in the right tonsillar fossa measuring 1.[address] neck shows asymmetric high density with ill-defined margins in the anterior aspect of the right palatine tonsil which is considered to be nonspecific. This would be a very unusual location for metastasis for lung cancer. He completed CPET and coronary angiogram. The latter shows moderate proximal LAD disease and severe mid RCA disease with patent saphenous venous graft to PDA. He took Bevespi and albuterol for his COPD. His CAT score was 9 on presentation. 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 He smoked 75 pack years but cut back over the past 3 months. He drinks 30 cans of beer a week. Current Outpatient Medications on File Prior to Visit Medication Sig sulfamethoxazole-trimethoprim (BACTRIM DS,SEPTRA DS) 800-160 mg per tablet Take 1 tablet by mouth twice daily. (Patient not taking: Reported on 01/22/2022 ) Cephalexin 500 mg tab Take 1 tablet by mouth three times daily. mupirocin (BACTROBAN) 2 % ointment mupirocin 2 % topical ointment APPLY TO THE AFFECTED AREA(S) THREE TIMES DAILY NEEDED predniSONE (DELTASONE) 10 mg tablet DAY 1 TAKE 7 TABLETS BY MOUTH, DAY 2 TAKE 6 TABLETS, DAY 3 TAKE 5 TABLETS, DAY 4 TAKE 4 TABLETS, DAY 5 TAKE 3 TABLETS, DAY 6 TAKE 2 TABLETS, DAY 7 TAKE 1 TABLET potassium chloride (K-TAB) 10 mEq tablet Take 1 tablet by mouth once daily. FEROSUL 325 mg (65 mg iron) tablet metoprolol tartrate, short acting, (LOPRESSOR) 25 mg tablet Take 50 mg by mouth twice daily. isosorbide mononitrate ER (IMDUR) 30 mg 24 hr tablet Take 30 mg by mouth once daily. folic acid 1 mg tablet Take 1 tablet by mouth once daily. ondansetron (ZOFRAN) 8 mg tablet Take 1 tablet by mouth every 8 hours as needed for nausea/vomiting. prochlorperazine (COMPAZINE) 10 mg tablet Take 1 tablet by mouth every 6 hours as needed. cilostazol (PLETAL) 100 mg tablet Take 1 tablet by mouth twice daily. clopidogrel (PLAVIX) 75 mg tablet Take 1 tablet by mouth once daily. aspirin 81 mg chewable tablet Take 81 mg by mouth once daily. albuterol HFA (PROVENTIL HFA, VENTOLIN HFA) 90 mcg/actuation inhaler albuterol sulfate HFA 90 mcg/actuation aerosol inhaler INHALE 2 PUFFS BY MOUTH EVERY 4 HOURS NEEDED for SHORTNESS OF BREATH atorvastatin (LIPITOR) 40 mg tablet Take 40 mg by mouth once daily. No current facility-administered medications on file prior to visit. PAST MEDICAL HISTORY Diagnosis Date Carotid artery disease (HCC) bilateral COPD (chronic obstructive pulmonary disease) (HCC) Heart attack (HCC) History of non-ST elevation myocardial infarction (NSTEMI) HTN (hypertension) Hypertension 09/25/2021 Lung cancer (HCC) Malignant neoplasm of lower lobe of left lung (HCC) Peripheral arterial disease (HCC) 2019 R REGISTRATION COORDINATOR stent PAST SURGICAL HISTORY Procedure Laterality Date BACK SURGERY HX 2019 CABG (4) VEIN GRAFTS & ARTERIAL GRAFT(S) 2016 LOWER EXTREMITY FUNNEL SETTER W/WO STENT Right 2019 right common femoral artery stent REMOVAL OF LUNG,LOBECTOMY Left 09/26/2021 VATS left upper lung wedge resection, completion lobectomy, lymph node dissection, application of Progel to staple line, intercostal nerve blocks for cancer FAMILY HISTORY Problem Relation Age of Onset Lung Cancer Father Heart Attack Father Coronary Artery Disease Father Social History Tobacco Use Smoking status: Former Smoker Packs/day: 2.00 Years: 50.00 Pack years: 100.00 Types: Cigarettes Start date: 1970 Smokeless tobacco: Never Used Tobacco comment: was smoking on and off fully quit 09/14/21 Substance Use Topics Alcohol use: Yes Alcohol/week: 30.0 standard drinks Types: 30 Cans of Beer (12oz) per week Comment: 4-9 beers per day Drug use: Never PHYSICAL EXAMINATION: BP 139/64 Pulse 60 Temp 36.3 C (97.4 F) (Temporal) Ht 167.6 cm (5' 6 ) Wt 58.8 kg (129 lb 10.1 oz) SpO2 94% BMI 20.92 kg/m General appearance: Well appearing, alert, in no acute distress, thin Skin: Skin color, texture, turgor normal, no suspicious rashes or lesions Head: Normocephalic, no masses, lesions, tenderness or abnormalities Eyes: Anicteric sclera. Pupils are equally round. Extraocular movements are intact. Ears: External ears normal. Nose/Sinuses: Nares normal, septum midline, mucosa normal, no drainage or sinus tenderness Oropharynx: normal, class I airway. I do not see any lesions in the right tonsillar fossa. There is a rubbery lymph node in the upper cervical chain. Neck: Supple, no adenopathy. Back: Normal exam Lungs: Lungs clear to auscultation. No wheezing, rhonchi, rales. Sternotomy scar, deformed sternum. Well-healed left thoracotomy scar. Heart: RRR without murmur, gallop, or rubs. No ectopy Abdomen: soft, non-tender. Bowel sounds normal. No masses, organomegaly Extremities: No deformities, edema, skin discoloration, clubbing or cyanosis. Good capillary refill. Musculoskeletal: No joint swelling, deformity, or tenderness Peripheral pulses: Normal Neuro: Gait normal. Labs and imaging: [facility] [address] [place] [address] Test Date: 2022-01-29 Pat Name: PEDRO GU Department: Room: Gender: Male Fuel Attendant: : 1955 Requested By: Order Number: [id number] Reading MD: Interpretive Statements Pre BD: FVC is repeatable x3, The two largest FEV1s are not repeatable. Best reported. DLCO done x4, DLCO is repeatable. The IVC of the SB DLCO maneuver was 80% of the best VC. DLCO is hemoglobin corrected. Hemoglobin obtained from [facility] on 01/22/22. Medications and Allergies were reviewed for possible drug interactions per policy. No contraindications or sensitivities were noted. RT meds taken: Stiolto 12 hours before testing. 4 puffs Albuterol (360 mcg) delivered by MDI via holding chamber. HR Pre= 75 min, HR Post= 77 min. Post BD: ATS/ERS acceptability and repeatability standards for spirometry met. // IMPRESSION: Site: ID: [id number] Name: PEDRO GU Visit Date: 01/29/2022 Doctor: Fuel Attendant: Ton Cervantes Age: 66 Date of : 1955 Gender: Male Race: White Height: 65.94 in Weight: 129.63 lbs BSA: 1.663 Diagnosis: COPD Dyspnea: Cough: Wheeze: Tobacco Product: Years Smoked: Packs/Day: Years Quit: Medications: .Current Smoker Comments: Pre BD: FVC is repeatable x3, The two largest FEV1s are not repeatable. Best reported. DLCO done x4, DLCO is repeatable. The IVC of the SB DLCO maneuver was 80% of the best VC. DLCO is hemoglobin corrected. Hemoglobin obtained from [facility] on 01/22/22. Medications and Allergies were reviewed for possible drug interactions per policy. No contraindications or sensitivities were noted. RT meds taken: Stiolto 12 hours before testing. 4 puffs Albuterol (360 mcg) delivered by MDI via holding chamber. HR Pre= 75 min, HR Post= 77 min. Post BD: ATS/ERS acceptability and repeatability standards for spirometry met. // Review Status: Not Reviewed PRE-BRONCH POST-BRONCH Pred LLN ULN Actual %Pred Actual %Chng SPIROMETRY FVC (L) 3.85 2.90 4.82 3.49 90 3.65 4 FEV1 (L) 2.98 2.20 3.71 2.16 72 2.28 5 FEV1/FVC 0.77 0.65 0.89 0.62 79 0.63 0 FEF25 (L/sec) 3.44 3.84 11 FEF50 (L/sec) 3.54 1.41 5.66 1.55 43 1.51 -2 FEF75 (L/sec) 0.69 0.27 1.69 0.40 57 0.52 30 HCB20-87 (L/sec) 2.45 1.14 4.26 1.07 43 1.27 19 PEF L/s (L/sec) 7.94 5.88 10.00 5.96 75 5.87 -1 FIVC (L) 3.39 3.66 7 FIF50 (L/sec) 4.74 6.19 30 PIF (L/sec) 4.76 6.40 34 Time (sec) 13.52 9.15 -32 RENÉ (L) 0.11 0.11 0 FET PEF (sec) 0.08 0.08 -3 DIFFUSION DLCOunc (ml/min/mmHg) 25.60 15.67 35.54 9.10 35 DLunc/VA (ml/min/mmHg 4.32 3.12 5.52 1.84 42 VA (L) 6.04 4.67 7.40 4.94 81 BHT (sec) 10.13 IVC (L) 2.68 BLOOD GASES HgbGmL (gm/L) 120-180 94 [facility] [address] [place] [address] Test Date: 2021-05-21 Pat Name: JEAN-PAULBROOMFIELD RICCARDO Department: Room: Gender: Male Fuel Attendant: : 1955 Requested By: Order Number: [id number] Reading MD: Interpretive Statements PRE AND POST NIXON: ATS/ERS acceptability and repeatability standards for spirometry met. Medications and Allergies were reviewed for possible drug interactions per policy MM-102. No contraindications or sensitivities were noted. Meds taken: 2 PUFFS BEVESPI 5 hours before testing. 4 puffs albuterol (360 mcg) delivered by MDI via valved holding chamber, HRpre= 76/min, HRpost= 69/min. DL- ATS/ERS acceptability and repeatability standards for DLCO met. DLCO is not hemoglobin and carboxyhemoglobin corrected. //AH IMPRESSION: Site: ID: [id number] Name: PEDRO GU Visit Date: 05/21/2021 Doctor: Fuel Attendant: Merissa Ashley Age: 66 Date of : 1955 Gender: Male Race: White Height: 65.94 in Weight: 126.00 lbs BSA: 1.643 Diagnosis: COPD Dyspnea: Cough: Wheeze: Tobacco Product: Cigarette Years Smoked: Packs/Day: Years Quit: Medications: Comments: PRE AND POST NIXON: ATS/ERS acceptability and repeatability standards for spirometry met. Medications and Allergies were reviewed for possible drug interactions per policy MM-102. No contraindications or sensitivities were noted. Meds taken: 2 PUFFS BEVESPI 5 hours before testing. 4 puffs albuterol (360 mcg) delivered by MDI via valved holding chamber, HRpre= 76/min, HRpost= 69/min. DL- ATS/ERS acceptability and repeatability standards for DLCO met. DLCO is not hemoglobin and carboxyhemoglobin corrected. //AH Review Status: Not Reviewed PRE-BRONCH POST-BRONCH Pred LLN ULN Actual %Pred Actual %Chng SPIROMETRY FVC (L) 3.87 2.92 4.84 4.03 103 4.32 7 FEV1 (L) 3.00 2.23 3.73 1.90 63 2.18 14 FEV1/FVC 0.78 0.65 0.89 0.47 60 0.51 7 FEF25 (L/sec) 2.14 3.54 65 FEF50 (L/sec) 3.56 1.44 5.69 0.60 16 0.87 45 FEF75 (L/sec) 0.70 0.27 1.71 0.17 24 0.28 61 BDJ13-09 (L/sec) 2.48 1.16 4.30 0.44 17 0.73 67 PEF L/s (L/sec) 8.00 5.94 10.05 6.76 84 7.08 4 FIVC (L) 3.86 4.12 6 FIF50 (L/sec) 6.27 4.46 -28 PIF (L/sec) 6.28 4.78 -23 Time (sec) 15.42 16.21 5 RENÉ (L) 0.14 0.09 -37 FET PEF (sec) 0.07 0.09 25 DIFFUSION DLCOunc (ml/min/mmHg) 25.76 15.82 35.70 15.47 60 DLunc/VA (ml/min/mmHg 4.34 3.14 5.54 2.56 58 VA (L) 6.04 4.67 7.40 6.06 100 BHT (sec) 11.53 IVC (L) 3.69 6-minute walk test: 366 m (68% of predicted), no desaturation Postoperative predicted DLCO 11.4 (14/19 segments left after left upper lobectomy) Postoperative predicted FEV1 1.6 L PET scan May 28, 2021 IMPRESSION: 1. NECK: * FDG avid soft tissue mass in the right tonsil region could represent tonsillitis versus neoplastic process. Correlate with ENT exam. 2. CHEST: * Enlarging left upper lobe nodule measuring 2.7 x 1.8 cm with max SUV of 4.8 suspicious for neoplasm. No mediastinal or hilar lymphadenopathy. 3. ABDOMEN/PELVIS: * No FDG avid neoplastic process. . 4. EXTREMITIES/SKELETON: * No suspicious FDG avid osseous lesion. Char Dust Cleaner And Salvager: PSCB Transcribe Date/Time: May 28 2021 9:33A Dictated by : CLARK DOBSON MD This examination was interpreted and the report reviewed and electronically signed by: CADEN WHEAT MD on May 28 2021 10:40AM EST Assessment and plan: Pleomorphic lung cancer stage IIb COPD Coronary artery disease Peripheral vascular disease Mr. Gu resents with an enlarging left upper lobe nodule which may represent malignancy. The patient has family history of cancer, high alcohol intake and ongoing tobacco abuse. CT scan of the chest from January 2021 did not show significant mediastinal lymphadenopathy. The patient underwent left upper lobectomy and mediastinal lymphadenectomy during which he was found to have stage IIb pleomorphic lung cancer. He received chemotherapy with cisplatin and pemetrexed. The patient returns for follow-up after lung cancer surgery and chemotherapy. He is doing reasonably well. He has a lower than expected diffusion capacity after resection but FEV1 is preserved. The former may be related to anemia (9.4 g/dL) possibly related to chemotherapy. We will continue dual bronchodilator and add as needed nebulized DuoNeb. I advised him to use this in the morning on a regular basis before his Stiolto. Return to clinic in 3 months Verito Whelan MD Respiratory [place] [facility] documented in this encounter [facility] 01-29-2022 History of Present illness Narrative Radiology Service Progress Note PATIENT NAME: Pedro Gu DATE OF SERVICE: January 29, 2022 TIME: 7:40 AM PATIENT IDENTITY VERIFICATION COMPLETED USING TWO (2) IDENTIFIERS: Name and Date of confirmed by patient verbally. FALL SCREENING: Has the patient had 2 falls in the last year or 1 fall with injury or currently using an Ambulatory Assistive Device (Walker, Cane, Wheelchair, Crutches, etc.)? No PATIENT GENDER DATA: Male PATIENT RELEVANT IMPLANT DATA REVIEWED: Not Applicable RADIOLOGY DEPARTMENT: General X-ray: Exam(s) Completed: Chest X-Ray PERIPHERAL IV DATA: Not applicable SIGNED BY: RT Kaylee(R) January 29, 2022 7:40 AM documented in this encounter [facility] 01-22-2022 History of Present illness Narrative PATIENT NAME: Pedro Gu DATE: 01/22/2022 PRIMARY CARE PHYSICIAN: Dr. Christina Azul OTHER PHYSICIANS: Dr. Verito Whelan, Dr. Marianne FieldsDr. Limon Portions of this encounter note have been copied from the note from 01/14/2022 and has been updated where appropriate, and reflect my current medical decision making from today. CC: This is a 66 year old male with lung cancer, seen for scheduled follow-up and continued treatment. INTERIM HISTORY: At the patient's last visit here labs revealed neutropenia, and he had evidence of a cutaneous infection involving his left facial area. He was given antibiotics and chemotherapy was held. On follow-up today he feels much better. The skin infection resolved with antibiotics. He has had no fevers or other signs of ongoing infection. Energy and appetite much improved. MEDICATIONS: Current Outpatient Medications Medication Sig Cephalexin 500 mg tab Take 1 tablet by mouth three times daily. mupirocin (BACTROBAN) 2 % ointment mupirocin 2 % topical ointment APPLY TO THE AFFECTED AREA(S) THREE TIMES DAILY NEEDED predniSONE (DELTASONE) 10 mg tablet DAY 1 TAKE 7 TABLETS BY MOUTH, DAY 2 TAKE 6 TABLETS, DAY 3 TAKE 5 TABLETS, DAY 4 TAKE 4 TABLETS, DAY 5 TAKE 3 TABLETS, DAY 6 TAKE 2 TABLETS, DAY 7 TAKE 1 TABLET potassium chloride (K-TAB) 10 mEq tablet Take 1 tablet by mouth once daily. FEROSUL 325 mg (65 mg iron) tablet metoprolol tartrate, short acting, (LOPRESSOR) 25 mg tablet Take 50 mg by mouth twice daily. isosorbide mononitrate ER (IMDUR) 30 mg 24 hr tablet Take 30 mg by mouth once daily. folic acid 1 mg tablet Take 1 tablet by mouth once daily. ondansetron (ZOFRAN) 8 mg tablet Take 1 tablet by mouth every 8 hours as needed for nausea/vomiting. prochlorperazine (COMPAZINE) 10 mg tablet Take 1 tablet by mouth every 6 hours as needed. cilostazol (PLETAL) 100 mg tablet Take 1 tablet by mouth twice daily. clopidogrel (PLAVIX) 75 mg tablet Take 1 tablet by mouth once daily. aspirin 81 mg chewable tablet Take 81 mg by mouth once daily. tiotropium-olodaterol (STIOLTO RESPIMAT) 2.5-2.5 mcg/actuation Inhale 2 Puffs as instructed once daily. albuterol HFA (PROVENTIL HFA, VENTOLIN HFA) 90 mcg/actuation inhaler albuterol sulfate HFA 90 mcg/actuation aerosol inhaler INHALE 2 PUFFS BY MOUTH EVERY 4 HOURS NEEDED for SHORTNESS OF BREATH atorvastatin (LIPITOR) 40 mg tablet Take 40 mg by mouth once daily. No current facility-administered medications for this visit. ALLERGIES: ALLERGIES No Known Allergies PAST MEDICAL HISTORY: PAST MEDICAL HISTORY Diagnosis Date Carotid artery disease (HCC) bilateral COPD (chronic obstructive pulmonary disease) (HCC) Heart attack (HCC) History of non-ST elevation myocardial infarction (NSTEMI) HTN (hypertension) Hypertension 09/25/2021 Lung cancer (HCC) Malignant neoplasm of lower lobe of left lung (HCC) Peripheral arterial disease (HCC) 2019 R REGISTRATION COORDINATOR stent PAST SURGICAL HISTORY: PAST SURGICAL HISTORY Procedure Laterality Date BACK SURGERY HX 2019 CABG (4) VEIN GRAFTS & ARTERIAL GRAFT(S) 2016 LOWER EXTREMITY FUNNEL SETTER W/WO STENT Right 2019 right common femoral artery stent REMOVAL OF LUNG,LOBECTOMY Left 09/26/2021 VATS left upper lung wedge resection, completion lobectomy, lymph node dissection, application of Progel to staple line, intercostal nerve blocks for cancer FAMILY HISTORY: FAMILY HISTORY Problem Relation Age of Onset Lung Cancer Father Heart Attack Father Coronary Artery Disease Father SOCIAL HISTORY: Social History Tobacco Use Smoking status: Former Smoker Packs/day: 2.00 Years: 50.00 Pack years: 100.00 Types: Cigarettes Start date: 1970 Smokeless tobacco: Never Used Tobacco comment: was smoking on and off fully quit 09/14/21 Substance Use Topics Alcohol use: Yes Alcohol/week: 30.0 standard drinks Types: 30 Cans of Beer (12oz) per week Comment: 4-9 beers per day Drug use: Never REVIEW OF SYSTEMS: General: No weight loss, malaise or fevers. HEENT: Negative for frequent or significant headaches. No changes in hearing or vision, no nose bleeds or other nasal problems Respiratory: Negative for cough, wheezing or shortness of breath. Cardiovascular: Negative for chest pain, leg swelling or palpitations. GI: Negative for abdominal discomfort, blood in stools or black stools or change in bowel habits. Positive constipation. : No history of dysuria, frequency or incontinence. Musculoskeletal: Negative for joint pain or swelling, back pain and muscle pain. Skin: Negative for lesions, rash and itching. Hematology/Lymphology: Negative for prolonged bleeding, bruising easily or swollen nodes. Neuro: No history of headaches, syncope, paralysis, seizures or tremors. PHYSICAL EXAM: BP 110/61 Pulse 90 Temp 36.7 C (98 F) (Temporal) Resp 18 Ht 168.8 cm (5' 6.46 ) Wt 59.8 kg (131 lb 12.8 oz) SpO2 100% BMI 20.98 kg/m ECOG 0 General: Alert and oriented, no distress, pleasant and cooperative. Heart: Regular, normal S1 and S2, no murmurs, rubs, or gallops Lungs: Clear to auscultation bilaterally Abdomen: Benign Extremities: Feet/ankles without edema, posterior tibial pulses full and symmetrical. PATHOLOGY: 09/26/2021 Left upper lobectomy and mediastinal lymphadenectomy A, H. 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 - Visceral pleural invasion present. - Tumor invades into parietal pleural/chest wall adipose tissue. - Arterial invasion present. - Five hilar/peribronchial lymph nodes, negative for tumor (0/5). - Emphysema with patchy smoking-related interstitial fibrosis. - Margins negative. B. Lymph node, level 10L, excision: - Negative for tumor (0/1). C. Lymph node, level 5, excision: - Negative for tumor (0/1). D. Lymph node, level 6, excision: - Negative for tumor (0/1). E. Lymph node, level 11L, excision: - Negative for tumor (0/1). F. Lymph node, level 12L, excision: - Negative for tumor (0/1). G. Lymph node, level 11L #2, excision: - Negative for tumor (0/1). I. Lymph node, level 11L #3, excision: - Negative for tumor (0/1). J. Lymph node, level 9L, excision: - Benign fibroadipose tissue, negative for tumor. Molecular markers: RET rearrangement negative, ROS1 negative, BRAF negative, EGFR negative, HER-2 negative, KRAS c34G>T positive, ALK 1 negative, PD-L1 95% LABS: Hemoglobin (g/dL) Date Value 01/22/2022 9.4 07/03/2021 14.2 Hematocrit (%) Date Value 01/22/2022 27.6 07/03/2021 41.8 WBC (k/uL) Date Value 01/22/2022 4.64 07/03/2021 5.83 Platelet Count (k/uL) Date Value 01/22/2022 265 07/03/2021 265 RADIOLOGY/OTHER STUDIES: 10/31/2021 Brain MRI IMPRESSION: No evidence of an acute intracranial process. No intracranial enhancing lesion to suggest metastasis. 09/25/2021 CT chest IMPRESSION: Increased peripheral left upper lobe mass with adjacent curvilinear scarlike opacity concerning for neoplasm. No other acute thoracic disease. 07/11/2021 CT neck IMPRESSION: ASYMMETRIC HIGH DENSITY WITH ILL-DEFINED MARGINS INVOLVING THE ANTERIOR ASPECT OF THE RIGHT PALATINE TONSIL WITHOUT ASSOCIATED NODULARITY. THIS IS A NONSPECIFIC FINDING AND MAY REFLECT HYPEREMIA FROM TONSILLITIS. THIS CORRESPONDS TO THE LOCATION OF FDG ACTIVITY ON THE PRIOR PET/CT EXAM. INTERVAL FOLLOW-UP IMAGING AND/OR DIRECT VISUALIZATION MAY BE OF BENEFIT TO EXCLUDE UNDERLYING SUBTLE MASS. MODERATE DEGENERATIVE CHANGES INVOLVING THE CERVICAL SPINE. MODERATE ATHEROSCLEROSIS AT THE CAROTID BIFURCATIONS. PARANASAL SINUS MUCOSAL THICKENING/SECRETIONS, DESCRIBED ABOVE. SMALL MILLIMETRIC LYMPH NODES SEEN AT SOME NECK LEVELS, NONE SIGNIFICANTLY ENLARGED BY IMAGING SIZE CRITERIA. IMPRESSION: ASYMMETRIC HIGH DENSITY WITH ILL-DEFINED MARGINS INVOLVING THE ANTERIOR ASPECT OF THE RIGHT PALATINE TONSIL WITHOUT ASSOCIATED NODULARITY. THIS IS A NONSPECIFIC FINDING AND MAY REFLECT HYPEREMIA FROM TONSILLITIS. THIS CORRESPONDS TO THE LOCATION OF FDG ACTIVITY ON THE PRIOR PET/CT EXAM. INTERVAL FOLLOW-UP IMAGING AND/OR DIRECT VISUALIZATION MAY BE OF BENEFIT TO EXCLUDE UNDERLYING SUBTLE MASS. MODERATE DEGENERATIVE CHANGES INVOLVING THE CERVICAL SPINE. MODERATE ATHEROSCLEROSIS AT THE CAROTID BIFURCATIONS. PARANASAL SINUS MUCOSAL THICKENING/SECRETIONS, DESCRIBED ABOVE. SMALL MILLIMETRIC LYMPH NODES SEEN AT SOME NECK LEVELS, NONE SIGNIFICANTLY ENLARGED BY IMAGING SIZE CRITERIA. CT neck 05/28/2021 PET scan IMPRESSION: 1. NECK: * FDG avid soft tissue mass in the right tonsil region could represent tonsillitis versus neoplastic process. Correlate with ENT exam. 2. CHEST: * Enlarging left upper lobe nodule measuring 2.7 x 1.8 cm with max SUV of 4.8 suspicious for neoplasm. No mediastinal or hilar lymphadenopathy. 3. ABDOMEN/PELVIS: * No FDG avid neoplastic process. . 4. EXTREMITIES/SKELETON: * No suspicious FDG avid osseous lesion. ASSESSMENT/PLAN: 1. 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 Status post left upper lobectomy and mediastinal lymphadenectomy 09/26/2021. The primary tumor involved the visceral and parietal pleura with evidence of invasion into the chest wall adipose tissue. Surgical margins negative. The patient recovered from surgery well. Postop it was elected to proceed with adjuvant chemotherapy consisting of cisplatin plus pemetrexed x4 cycles followed by adjuvant radiation therapy. After completing adjuvant radiation therapy adjuvant immunotherapy with nivolumab x1 year will be considered. The patient received his first cycle of chemotherapy on 11/05/2021. Unfortunately, labs obtained 11/12/2021 revealed significant renal dysfunction with a creatinine of 2.66. The patient received aggressive IV fluids and his renal function returned to baseline. His treatment was subsequently changed to carboplatin plus Alimta on 12/03/2021. When seen on 01/14/2022 for cycle 4 the patient had evidence of a skin infection and labs revealed leukopenia, therefore treatment was held. On follow-up today the patient is clinically stable and CBC improved. The patient will receive cycle 4 today as scheduled, this will complete his planned chemotherapy. We will refer back to Dr. Limon to evaluate for adjuvant radiation therapy. I will see the patient back in 2 weeks for follow-up and labs. After the patient completes his planned radiation therapy we will evaluate for adjuvant immunotherapy. 2. Centrilobular emphysema (HCC) - ICD9: 492.8, ICD10: J43.2 Long history of tobacco abuse, quit September 2021. Chronic shortness of breath and cough stable on current medications. Continue management per pulmonary/PCP. 3. Coronary artery disease Status post AMI 2016. Status post CABG x 4 in [place] 2015. Currently stable. Continue management per PCP/cardiology. 4. Peripheral vascular disease Status post balloon angioplasty right lower leg 2019. On long-term antiplatelet agents with Plavix and Pletal. Continue management per PCP/vascular surgery. 5. Abnormal right tonsil on PET scan (05/28/2021) and neck CT (07/11/2021). Radiographic abnormalities identified on baseline PET scan and neck CT. The patient was seen by [facility] on 07/26/2021. Clinical evaluation most consistent with inflammatory/post-infectious findings. No suspicion for malignancy. The patient apparently chews tobacco, and was advised to discontinue. Follow-up with ENT as indicated. 6. Renal dysfunction The patient received chemotherapy with cisplatin and pemetrexed on 11/05/2021. Subsequent labs revealed significant renal dysfunction with creatinine elevation 2.66 on 11/12/2021. With IV fluids (and discontinuation of cisplatin) the patient's renal function has improved. We will monitor closely. 7. Hypotension The patient has a long history of hypertension, previously on multiple blood pressure medications. Since starting chemotherapy his blood pressures have dropped, and his medications have been adjusted. We will continue to monitor and adjust BP medications accordingly. 8. Anemia due to antineoplastic chemotherapy - ICD9: 285.3, E933.1, ICD10: D64.81, T45.1X5A Progressive anemia since the start of chemotherapy. Labs revealed no evidence of iron deficiency. The patient is receiving treatment with curative intent, therefore we will hold off on EPO. Will consider blood transfusion if hemoglobin drops below 8. Pito Grigsby MD documented in this encounter [facility] 01-14-2022 History of Present illness Narrative PATIENT NAME: Pedro Gu DATE: 01/14/2022 PRIMARY CARE PHYSICIAN: Dr. Christina Azul OTHER PHYSICIANS: Dr. Verito Whelan, Dr. Marianne Fields, Dr. Limon Portions of this encounter note have been copied from the note from 12/24/2021 and has been updated where appropriate, and reflect my current medical decision making from today. CC: This is a 66 year old male with lung cancer, seen for scheduled follow-up and continued treatment. INTERIM HISTORY: The patient received his third cycle of chemotherapy 3 weeks ago, and tolerated it well. Prior to his last chemotherapy the apparent skin infection over his left face improved, but worsened since his last chemo. He has a fine rash along the left aspect of his face. He also complains of dry and itchy eyes . No fevers. He has mild fatigue, otherwise feels fairly well. MEDICATIONS: Current Outpatient Medications Medication Sig Cephalexin 500 mg tab Take 1 tablet by mouth three times daily. mupirocin (BACTROBAN) 2 % ointment mupirocin 2 % topical ointment APPLY TO THE AFFECTED AREA(S) THREE TIMES DAILY NEEDED predniSONE (DELTASONE) 10 mg tablet DAY 1 TAKE 7 TABLETS BY MOUTH, DAY 2 TAKE 6 TABLETS, DAY 3 TAKE 5 TABLETS, DAY 4 TAKE 4 TABLETS, DAY 5 TAKE 3 TABLETS, DAY 6 TAKE 2 TABLETS, DAY 7 TAKE 1 TABLET potassium chloride (K-TAB) 10 mEq tablet Take 1 tablet by mouth once daily. FEROSUL 325 mg (65 mg iron) tablet metoprolol tartrate, short acting, (LOPRESSOR) 25 mg tablet Take 50 mg by mouth twice daily. isosorbide mononitrate ER (IMDUR) 30 mg 24 hr tablet Take 30 mg by mouth once daily. folic acid 1 mg tablet Take 1 tablet by mouth once daily. ondansetron (ZOFRAN) 8 mg tablet Take 1 tablet by mouth every 8 hours as needed for nausea/vomiting. prochlorperazine (COMPAZINE) 10 mg tablet Take 1 tablet by mouth every 6 hours as needed. cilostazol (PLETAL) 100 mg tablet Take 1 tablet by mouth twice daily. clopidogrel (PLAVIX) 75 mg tablet Take 1 tablet by mouth once daily. aspirin 81 mg chewable tablet Take 81 mg by mouth once daily. tiotropium-olodaterol (STIOLTO RESPIMAT) 2.5-2.5 mcg/actuation Inhale 2 Puffs as instructed once daily. albuterol HFA (PROVENTIL HFA, VENTOLIN HFA) 90 mcg/actuation inhaler albuterol sulfate HFA 90 mcg/actuation aerosol inhaler INHALE 2 PUFFS BY MOUTH EVERY 4 HOURS NEEDED for SHORTNESS OF BREATH atorvastatin (LIPITOR) 40 mg tablet Take 40 mg by mouth once daily. No current facility-administered medications for this visit. ALLERGIES: ALLERGIES No Known Allergies PAST MEDICAL HISTORY: PAST MEDICAL HISTORY Diagnosis Date Carotid artery disease (HCC) bilateral COPD (chronic obstructive pulmonary disease) (HCC) Heart attack (HCC) History of non-ST elevation myocardial infarction (NSTEMI) HTN (hypertension) Hypertension 09/25/2021 Lung cancer (HCC) Malignant neoplasm of lower lobe of left lung (HCC) Peripheral arterial disease (HCC) 2019 R REGISTRATION COORDINATOR stent PAST SURGICAL HISTORY: PAST SURGICAL HISTORY Procedure Laterality Date BACK SURGERY HX 2019 CABG (4) VEIN GRAFTS & ARTERIAL GRAFT(S) 2016 LOWER EXTREMITY FUNNEL SETTER W/WO STENT Right 2019 right common femoral artery stent REMOVAL OF LUNG,LOBECTOMY Left 09/26/2021 VATS left upper lung wedge resection, completion lobectomy, lymph node dissection, application of Progel to staple line, intercostal nerve blocks for cancer FAMILY HISTORY: FAMILY HISTORY Problem Relation Age of Onset Lung Cancer Father Heart Attack Father Coronary Artery Disease Father SOCIAL HISTORY: Social History Tobacco Use Smoking status: Former Smoker Packs/day: 2.00 Years: 50.00 Pack years: 100.00 Types: Cigarettes Start date: 1970 Smokeless tobacco: Never Used Tobacco comment: was smoking on and off fully quit 09/14/21 Substance Use Topics Alcohol use: Yes Alcohol/week: 30.0 standard drinks Types: 30 Cans of Beer (12oz) per week Comment: 4-9 beers per day Drug use: Never REVIEW OF SYSTEMS: General: No weight loss, malaise or fevers. HEENT: Negative for frequent or significant headaches. No changes in hearing or vision, no nose bleeds or other nasal problems Respiratory: Negative for cough, wheezing or shortness of breath. Cardiovascular: Negative for chest pain, leg swelling or palpitations. GI: Negative for abdominal discomfort, blood in stools or black stools or change in bowel habits. Positive constipation. : No history of dysuria, frequency or incontinence. Musculoskeletal: Negative for joint pain or swelling, back pain and muscle pain. Skin: Negative for lesions, rash and itching. Hematology/Lymphology: Negative for prolonged bleeding, bruising easily or swollen nodes. Neuro: No history of headaches, syncope, paralysis, seizures or tremors. PHYSICAL EXAM: BP 123/65 Pulse 85 Temp 36.2 C (97.2 F) (Temporal) Resp 16 Ht 168.8 cm (5' 6.46 ) Wt 60.2 kg (132 lb 12.8 oz) SpO2 99% BMI 21.14 kg/m ECOG 0 General: Alert and oriented, no distress, pleasant and cooperative. Heart: Regular, normal S1 and S2, no murmurs, rubs, or gallops Lungs: Clear to auscultation bilaterally Abdomen: Benign Extremities: Feet/ankles without edema, posterior tibial pulses full and symmetrical. PATHOLOGY: 09/26/2021 Left upper lobectomy and mediastinal lymphadenectomy. FINAL DIAGNOSIS A, H. 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 - Visceral pleural invasion present. - Tumor invades into parietal pleural/chest wall adipose tissue. - Arterial invasion present. - Five hilar/peribronchial lymph nodes, negative for tumor (0/5). - Emphysema with patchy smoking-related interstitial fibrosis. - Margins negative. B. Lymph node, level 10L, excision: - Negative for tumor (0/1). C. Lymph node, level 5, excision: - Negative for tumor (0/1). D. Lymph node, level 6, excision: - Negative for tumor (0/1). E. Lymph node, level 11L, excision: - Negative for tumor (0/1). F. Lymph node, level 12L, excision: - Negative for tumor (0/1). G. Lymph node, level 11L #2, excision: - Negative for tumor (0/1). I. Lymph node, level 11L #3, excision: - Negative for tumor (0/1). J. Lymph node, level 9L, excision: - Benign fibroadipose tissue, negative for tumor. Molecular markers: RET rearrangement negative, ROS1 negative, BRAF negative, EGFR negative, HER-2 negative, KRAS c34G>T positive, ALK 1 negative, PD-L1 95% LABS: Hemoglobin (g/dL) Date Value 01/14/2022 8.6 07/03/2021 14.2 Hematocrit (%) Date Value 01/14/2022 24.9 07/03/2021 41.8 WBC (k/uL) Date Value 01/14/2022 2.36 07/03/2021 5.83 Platelet Count (k/uL) Date Value 01/14/2022 292 07/03/2021 265 RADIOLOGY/OTHER STUDIES: 10/31/2021 Brain MRI IMPRESSION: No evidence of an acute intracranial process. No intracranial enhancing lesion to suggest metastasis. 09/25/2021 CT chest IMPRESSION: Increased peripheral left upper lobe mass with adjacent curvilinear scarlike opacity concerning for neoplasm. No other acute thoracic disease. 07/11/2021 CT neck IMPRESSION: ASYMMETRIC HIGH DENSITY WITH ILL-DEFINED MARGINS INVOLVING THE ANTERIOR ASPECT OF THE RIGHT PALATINE TONSIL WITHOUT ASSOCIATED NODULARITY. THIS IS A NONSPECIFIC FINDING AND MAY REFLECT HYPEREMIA FROM TONSILLITIS. THIS CORRESPONDS TO THE LOCATION OF FDG ACTIVITY ON THE PRIOR PET/CT EXAM. INTERVAL FOLLOW-UP IMAGING AND/OR DIRECT VISUALIZATION MAY BE OF BENEFIT TO EXCLUDE UNDERLYING SUBTLE MASS. MODERATE DEGENERATIVE CHANGES INVOLVING THE CERVICAL SPINE. MODERATE ATHEROSCLEROSIS AT THE CAROTID BIFURCATIONS. PARANASAL SINUS MUCOSAL THICKENING/SECRETIONS, DESCRIBED ABOVE. SMALL MILLIMETRIC LYMPH NODES SEEN AT SOME NECK LEVELS, NONE SIGNIFICANTLY ENLARGED BY IMAGING SIZE CRITERIA. IMPRESSION: ASYMMETRIC HIGH DENSITY WITH ILL-DEFINED MARGINS INVOLVING THE ANTERIOR ASPECT OF THE RIGHT PALATINE TONSIL WITHOUT ASSOCIATED NODULARITY. THIS IS A NONSPECIFIC FINDING AND MAY REFLECT HYPEREMIA FROM TONSILLITIS. THIS CORRESPONDS TO THE LOCATION OF FDG ACTIVITY ON THE PRIOR PET/CT EXAM. INTERVAL FOLLOW-UP IMAGING AND/OR DIRECT VISUALIZATION MAY BE OF BENEFIT TO EXCLUDE UNDERLYING SUBTLE MASS. MODERATE DEGENERATIVE CHANGES INVOLVING THE CERVICAL SPINE. MODERATE ATHEROSCLEROSIS AT THE CAROTID BIFURCATIONS. PARANASAL SINUS MUCOSAL THICKENING/SECRETIONS, DESCRIBED ABOVE. SMALL MILLIMETRIC LYMPH NODES SEEN AT SOME NECK LEVELS, NONE SIGNIFICANTLY ENLARGED BY IMAGING SIZE CRITERIA. CT neck 05/28/2021 PET scan IMPRESSION: 1. NECK: * FDG avid soft tissue mass in the right tonsil region could represent tonsillitis versus neoplastic process. Correlate with ENT exam. 2. CHEST: * Enlarging left upper lobe nodule measuring 2.7 x 1.8 cm with max SUV of 4.8 suspicious for neoplasm. No mediastinal or hilar lymphadenopathy. 3. ABDOMEN/PELVIS: * No FDG avid neoplastic process. . 4. EXTREMITIES/SKELETON: * No suspicious FDG avid osseous lesion. ASSESSMENT/PLAN: 1. 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 Status post left upper lobectomy and mediastinal lymphadenectomy 09/26/2021. The primary tumor involved the visceral and parietal pleura with evidence of invasion into the chest wall adipose tissue. Surgical margins negative. The patient recovered from surgery well. Postop it was elected to proceed with adjuvant chemotherapy consisting of cisplatin plus pemetrexed x4 cycles followed by adjuvant radiation therapy. After completing adjuvant radiation therapy adjuvant immunotherapy with nivolumab x1 year will be considered. The patient received his first cycle of chemotherapy on 11/05/2021. Unfortunately, labs obtained 11/12/2021 revealed significant renal dysfunction with a creatinine of 2.66. The patient received aggressive IV fluids and his renal function returned to baseline. His treatment was changed to carboplatin plus Alimta on 12/03/2021. He overall tolerated treatment much better and currently is clinically stable. However, labs reveal significant leukopenia. Clinically appears to have a superficial skin infection over his left facial area. Because of his low WBC we will hold chemo today. He will be given antibiotics with Cipro x7 days for a suspected skin infection. Return in 1 week. If stable he will receive his fourth and final cycle of chemotherapy. He will then be referred for radiation. 2. Centrilobular emphysema (HCC) - ICD9: 492.8, ICD10: J43.2 Long history of tobacco abuse, quit September 2021. Chronic shortness of breath and cough stable on current medications. Continue management per pulmonary/PCP. 3. Coronary artery disease Status post AMI 2015. Status post CABG x 4 in [place] 2015. Currently stable. Continue management per PCP/cardiology. 4. Peripheral vascular disease Status post balloon angioplasty right lower leg 2019. On long-term antiplatelet agents with Plavix and Pletal. Continue management per PCP/vascular surgery. 5. Abnormal right tonsil on PET scan (05/28/2021) and neck CT (07/11/2021). Radiographic abnormalities identified on baseline PET scan and neck CT. The patient was seen by [facility] on 07/26/2021. Clinical evaluation most consistent with inflammatory/post-infectious findings. No suspicion for malignancy. The patient apparently chews tobacco, and was advised to discontinue. Follow-up with ENT as indicated. 6. Renal dysfunction The patient received chemotherapy with cisplatin and pemetrexed on 11/05/2021. Subsequent labs revealed significant renal dysfunction with creatinine elevation 2.66 on 11/12/2021. With IV fluids (and discontinuation of cisplatin) the patient is renal function has improved. We will monitor closely. 7. Hypotension Patient is having periods of low BPs at home. I advised him to decrease his metoprolol to 25mg BID and monitor BPs at home. If remain low, may need to discontinue metoprolol completely. He will follow up with PCP as scheduled. 8. Anemia due to antineoplastic chemotherapy - ICD9: 285.3, E933.1, ICD10: D64.81, T45.1X5A Progressive anemia since the start of chemotherapy. Labs revealed no evidence of iron deficiency. The patient is receiving treatment with curative intent, therefore we will hold off on EPO. Will consider blood transfusion if hemoglobin drops below 8. Pito Grigsby MD documented in this encounter [facility] 12-24-2021 Miscellaneous Notes Pt notified of script and verbalizes understanding. Denita Rai RN We will send prescription for KCl 10 M EQ's daily. Please inform the patient. WILIAM Dennis Potassium level 3.2 today. Pt is able to take pills without difficulty and a script [facility] [place] [facility] needed. documented in this encounter [facility] 12-24-2021 History of Present illness Narrative . documented in this encounter [facility] 12-24-2021 History of Present illness Narrative PATIENT NAME: Pedro Gu DATE: 12/24/2021 PRIMARY CARE PHYSICIAN: Dr. Christina Azul OTHER PHYSICIANS: Dr. Verito Whelan, Dr. Marianne Fields Portions of this encounter note have been copied from the note from 12/11/2021 and has been updated where appropriate, and reflect my current medical decision making from today. CC: This is a 66 year old male with recently diagnosed lung cancer, seen for scheduled follow-up and continued treatment. INTERIM HISTORY: The patient tolerated his second cycle of chemotherapy much better. Other than mild nausea he had no obvious side effects. He apparently did develop an atypical rash involving the left side of his face for which he was given antibiotics for suspected infection. The rash has since resolved. Currently he feels well with no particular complaints, and is ready to proceed with treatment today as scheduled. MEDICATIONS: Current Outpatient Medications Medication Sig FEROSUL 325 mg (65 mg iron) tablet metoprolol tartrate, short acting, (LOPRESSOR) 25 mg tablet Take 50 mg by mouth twice daily. isosorbide mononitrate ER (IMDUR) 30 mg 24 hr tablet Take 30 mg by mouth once daily. folic acid 1 mg tablet Take 1 tablet by mouth once daily. ondansetron (ZOFRAN) 8 mg tablet Take 1 tablet by mouth every 8 hours as needed for nausea/vomiting. prochlorperazine (COMPAZINE) 10 mg tablet Take 1 tablet by mouth every 6 hours as needed. cilostazol (PLETAL) 100 mg tablet Take 1 tablet by mouth twice daily. clopidogrel (PLAVIX) 75 mg tablet Take 1 tablet by mouth once daily. aspirin 81 mg chewable tablet Take 81 mg by mouth once daily. tiotropium-olodaterol (STIOLTO RESPIMAT) 2.5-2.5 mcg/actuation Inhale 2 Puffs as instructed once daily. albuterol HFA (PROVENTIL HFA, VENTOLIN HFA) 90 mcg/actuation inhaler albuterol sulfate HFA 90 mcg/actuation aerosol inhaler INHALE 2 PUFFS BY MOUTH EVERY 4 HOURS NEEDED for SHORTNESS OF BREATH atorvastatin (LIPITOR) 40 mg tablet Take 40 mg by mouth once daily. No current facility-administered medications for this visit. ALLERGIES: ALLERGIES No Known Allergies PAST MEDICAL HISTORY: PAST MEDICAL HISTORY Diagnosis Date Carotid artery disease (HCC) bilateral COPD (chronic obstructive pulmonary disease) (HCC) Heart attack (HCC) History of non-ST elevation myocardial infarction (NSTEMI) HTN (hypertension) Hypertension 09/25/2021 Lung cancer (HCC) Malignant neoplasm of lower lobe of left lung (HCC) Peripheral arterial disease (HCC) 2019 R REGISTRATION COORDINATOR stent PAST SURGICAL HISTORY: PAST SURGICAL HISTORY Procedure Laterality Date BACK SURGERY HX 2019 CABG (4) VEIN GRAFTS & ARTERIAL GRAFT(S) 2016 LOWER EXTREMITY FUNNEL SETTER W/WO STENT Right 2019 right common femoral artery stent REMOVAL OF LUNG,LOBECTOMY Left 09/26/2021 VATS left upper lung wedge resection, completion lobectomy, lymph node dissection, application of Progel to staple line, intercostal nerve blocks for cancer FAMILY HISTORY: FAMILY HISTORY Problem Relation Age of Onset Lung Cancer Father Heart Attack Father Coronary Artery Disease Father SOCIAL HISTORY: Social History Tobacco Use Smoking status: Former Smoker Packs/day: 2.00 Years: 50.00 Pack years: 100.00 Types: Cigarettes Start date: 1970 Smokeless tobacco: Never Used Tobacco comment: was smoking on and off fully quit 09/14/21 Substance Use Topics Alcohol use: Yes Alcohol/week: 30.0 standard drinks Types: 30 Cans of Beer (12oz) per week Comment: 4-9 beers per day Drug use: Never REVIEW OF SYSTEMS: General: No weight loss, malaise or fevers. HEENT: Negative for frequent or significant headaches. No changes in hearing or vision, no nose bleeds or other nasal problems Respiratory: Negative for cough, wheezing or shortness of breath. Cardiovascular: Negative for chest pain, leg swelling or palpitations. GI: Negative for abdominal discomfort, blood in stools or black stools or change in bowel habits. Positive constipation. : No history of dysuria, frequency or incontinence. Musculoskeletal: Negative for joint pain or swelling, back pain and muscle pain. Skin: Negative for lesions, rash and itching. Hematology/Lymphology: Negative for prolonged bleeding, bruising easily or swollen nodes. Neuro: No history of headaches, syncope, paralysis, seizures or tremors. PHYSICAL EXAM: BP 120/70 Pulse 81 Temp 36.6 C (97.8 F) (Temporal) Resp 16 Ht 168.8 cm (5' 6.46 ) Wt 61.1 kg (134 lb 9.6 oz) SpO2 100% BMI 21.43 kg/m ECOG 0 General: Alert and oriented, no distress, pleasant and cooperative. Heart: Regular, normal S1 and S2, no murmurs, rubs, or gallops Lungs: Clear to auscultation bilaterally Abdomen: Benign Extremities: Feet/ankles without edema, posterior tibial pulses full and symmetrical. PATHOLOGY: 09/26/2021 Left upper lobectomy and mediastinal lymphadenectomy. FINAL DIAGNOSIS A, H. 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 - Visceral pleural invasion present. - Tumor invades into parietal pleural/chest wall adipose tissue. - Arterial invasion present. - Five hilar/peribronchial lymph nodes, negative for tumor (0/5). - Emphysema with patchy smoking-related interstitial fibrosis. - Margins negative. B. Lymph node, level 10L, excision: - Negative for tumor (0/1). C. Lymph node, level 5, excision: - Negative for tumor (0/1). D. Lymph node, level 6, excision: - Negative for tumor (0/1). E. Lymph node, level 11L, excision: - Negative for tumor (0/1). F. Lymph node, level 12L, excision: - Negative for tumor (0/1). G. Lymph node, level 11L #2, excision: - Negative for tumor (0/1). I. Lymph node, level 11L #3, excision: - Negative for tumor (0/1). J. Lymph node, level 9L, excision: - Benign fibroadipose tissue, negative for tumor. Molecular markers: RET rearrangement negative, ROS1 negative, BRAF negative, EGFR negative, HER-2 negative, KRAS c34G>T positive, ALK 1 negative, PD-L1 95% LABS: Hemoglobin (g/dL) Date Value 12/24/2021 8.9 07/03/2021 14.2 Hematocrit (%) Date Value 12/24/2021 26.4 07/03/2021 41.8 WBC (k/uL) Date Value 12/24/2021 3.75 07/03/2021 5.83 Platelet Count (k/uL) Date Value 12/24/2021 283 07/03/2021 265 RADIOLOGY/OTHER STUDIES: 10/31/2021 Brain MRI IMPRESSION: No evidence of an acute intracranial process. No intracranial enhancing lesion to suggest metastasis. 09/25/2021 CT chest IMPRESSION: Increased peripheral left upper lobe mass with adjacent curvilinear scarlike opacity concerning for neoplasm. No other acute thoracic disease. 07/11/2021 CT neck IMPRESSION: ASYMMETRIC HIGH DENSITY WITH ILL-DEFINED MARGINS INVOLVING THE ANTERIOR ASPECT OF THE RIGHT PALATINE TONSIL WITHOUT ASSOCIATED NODULARITY. THIS IS A NONSPECIFIC FINDING AND MAY REFLECT HYPEREMIA FROM TONSILLITIS. THIS CORRESPONDS TO THE LOCATION OF FDG ACTIVITY ON THE PRIOR PET/CT EXAM. INTERVAL FOLLOW-UP IMAGING AND/OR DIRECT VISUALIZATION MAY BE OF BENEFIT TO EXCLUDE UNDERLYING SUBTLE MASS. MODERATE DEGENERATIVE CHANGES INVOLVING THE CERVICAL SPINE. MODERATE ATHEROSCLEROSIS AT THE CAROTID BIFURCATIONS. PARANASAL SINUS MUCOSAL THICKENING/SECRETIONS, DESCRIBED ABOVE. SMALL MILLIMETRIC LYMPH NODES SEEN AT SOME NECK LEVELS, NONE SIGNIFICANTLY ENLARGED BY IMAGING SIZE CRITERIA. IMPRESSION: ASYMMETRIC HIGH DENSITY WITH ILL-DEFINED MARGINS INVOLVING THE ANTERIOR ASPECT OF THE RIGHT PALATINE TONSIL WITHOUT ASSOCIATED NODULARITY. THIS IS A NONSPECIFIC FINDING AND MAY REFLECT HYPEREMIA FROM TONSILLITIS. THIS CORRESPONDS TO THE LOCATION OF FDG ACTIVITY ON THE PRIOR PET/CT EXAM. INTERVAL FOLLOW-UP IMAGING AND/OR DIRECT VISUALIZATION MAY BE OF BENEFIT TO EXCLUDE UNDERLYING SUBTLE MASS. MODERATE DEGENERATIVE CHANGES INVOLVING THE CERVICAL SPINE. MODERATE ATHEROSCLEROSIS AT THE CAROTID BIFURCATIONS. PARANASAL SINUS MUCOSAL THICKENING/SECRETIONS, DESCRIBED ABOVE. SMALL MILLIMETRIC LYMPH NODES SEEN AT SOME NECK LEVELS, NONE SIGNIFICANTLY ENLARGED BY IMAGING SIZE CRITERIA. CT neck 05/28/2021 PET scan IMPRESSION: 1. NECK: * FDG avid soft tissue mass in the right tonsil region could represent tonsillitis versus neoplastic process. Correlate with ENT exam. 2. CHEST: * Enlarging left upper lobe nodule measuring 2.7 x 1.8 cm with max SUV of 4.8 suspicious for neoplasm. No mediastinal or hilar lymphadenopathy. 3. ABDOMEN/PELVIS: * No FDG avid neoplastic process. . 4. EXTREMITIES/SKELETON: * No suspicious FDG avid osseous lesion. ASSESSMENT/PLAN: 1. 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 Status post left upper lobectomy and mediastinal lymphadenectomy 09/26/2021. The primary tumor involved the visceral and parietal pleura with evidence of invasion into the chest wall adipose tissue. Surgical margins negative. The patient recovered from surgery well. Postop it was elected to proceed with adjuvant chemotherapy consisting of cisplatin plus pemetrexed x4 cycles followed by adjuvant radiation therapy. After completing adjuvant radiation therapy adjuvant immunotherapy with nivolumab x1 year will be considered. The patient received his first cycle of chemotherapy on 11/05/2021. Unfortunately, labs obtained 11/12/2021 revealed significant renal dysfunction with a creatinine of 2.66. The patient received aggressive IV fluids and his renal function has improved. His treatment was changed to carboplatin and Alimta on 12/03/2021. He overall tolerated treatment much better and currently is clinically stable. The patient will receive cycle 3 today as scheduled. We will check labs in 10 days. Return in 3 weeks for cycle 4. 2. Centrilobular emphysema (HCC) - ICD9: 492.8, ICD10: J43.2 Long history of tobacco abuse, quit September 2021. Chronic shortness of breath and cough stable on current medications. Continue management per pulmonary/PCP. 3. Coronary artery disease Status post AMI 2015. Status post CABG x 4 in [place] 2015. Currently stable. Continue management per PCP/cardiology. 4. Peripheral vascular disease Status post balloon angioplasty right lower leg 2019. On long-term antiplatelet agents with Plavix and Pletal. Continue management per PCP/vascular surgery. 5. Abnormal right tonsil on PET scan (05/28/2021) and neck CT (07/11/2021). Radiographic abnormalities identified on baseline PET scan and neck CT. The patient was seen by [facility] on 07/26/2021. Clinical evaluation most consistent with inflammatory/post-infectious findings. No suspicion for malignancy. The patient apparently chews tobacco, and was advised to discontinue. Follow-up with ENT as indicated. 6. Renal dysfunction The patient received chemotherapy with cisplatin and pemetrexed on 11/05/2021. Subsequent labs revealed significant renal dysfunction with creatinine elevation 2.66 on 11/12/2021. With IV fluids (and discontinuation of cisplatin) the patient is renal function has improved. We will monitor closely. 7. Hypotension Patient is having periods of low BPs at home. I advised him to decrease his metoprolol to 25mg BID and monitor BPs at home. If remain low, may need to discontinue metoprolol completely. He will follow up with PCP as scheduled. 8. Anemia due to antineoplastic chemotherapy - ICD9: 285.3, E933.1, ICD10: D64.81, T45.1X5A Progressive anemia since the start of chemotherapy. Labs revealed no evidence of iron deficiency. The patient is receiving treatment with curative intent, therefore we will hold off on EPO. Will consider blood transfusion if hemoglobin drops below 8. Pito Grigsby MD documented in this encounter [facility] 12-13-2021 Miscellaneous Notes Called patient to follow up on missed testing and office visit with Dr. Whelan on 11/20. Patient's BP was low that day and unable to come in. Patient requested to be rescheduled. Message sent to scheduling pool to reach out to patient to reschedule appointment and testing. Patient will call the office with any urgent needs. He is feeling ok at this time. documented in this encounter [facility] 12-05-2021 Miscellaneous Notes CYCLE 1/DAY 1 POST TREATMENT CALL Today's date: December 05, 2021 Treatment Regimen: Carboplatin C1D1 Date: 12/03/2021 Called patient to follow-up on symptom management. Spoke with patient. SYMPTOM ASSESSMENT Neuro: None CV/Resp: Shortness of breath: Yes. No more than his normal. GI/: Appetite: no changes in appetite, appetite fair, Nausea on the first night of treatment. Resolved w/o medication. No vomiting., Fluid intake: Per pt, drinking lots of water. and Bladder/Urinary Changes: Increased output Integument: None Activity: Patient reported decreased energy level, but better than cycle 1. 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 Do you need to take naps? Yes; Do you wake up feeling rested? Yes Pain: No=0 (pain 0 on a scale of 0-10). Fever: No Chills: No Overall, pt notes that cycle 2 treatment w/ carbo/alimta is much more tolerable than cycle 1 w/ cisplatin/alimta. Today's BP 133/82 before his medications. Pt is aware of his appointment w/ Dr Azul this Friday. Any new referrals needed? No Reinforced CURRENT treatment education based on current and anticipated symptoms. Discussed port/line care and patient verbalizes understanding: Not Applicable Patient instructed to contact office or after hours Hematology/Oncology fellow for: temperature ? 100.4; questions or concerns. Patient verbalized understanding of when to seek medical attention and after hours number protocol. Denita Sessler, RN documented in this encounter [facility] 12-03-2021 History of Present illness Narrative ONCOLOGY PATIENT EDUCATION NOTE TOPIC: Chemotherapy, Medications: Carboplatin, Alimta READINESS TO LEARN: COGNITIVE ABILITY: Alert and oriented MOTIVATION TO LEARN: Interested FAMILY SUPPORT: Unable to assess - Family not present INSTRUCTION PROVIDED TO: Patient INSTRUCTION PROVIDED BY: Nurse Coordinator PATIENT LEARNS BEST BY: Multiple Methods FACTORS AFFECTING LEARNING: None PHYSICAL LIMITATIONS AFFECTING LEARNING: None LEARNING RESPONSE DIAGNOSIS: Lung Cancer METHOD OF INSTRUCTION: Individual instruction Written instruction - handouts Verbal instruction PATIENT/FAMILY RESPONSE: Verbalizes understanding of: CHEMOTHERAPY-Regimen, toxicity and side effects INFECTION MANAGEMENT-Signs and symptoms of an infection and importance of contacting the physician SYMPTOM MANAGEMENT-Correct actions to take to manage symptoms associated with his/her disease/illness WORSENING CONDITION-Signs and symptoms of a worsening condition that warrant a call to the physician Information received as demonstrated by interest and questions FOLLOW UP PLAN: Patient instructed to call with any further issues Contact information given. SUPPLEMENTAL MATERIAL: Written material was provided at this visit with the following information: - Chemotherapy education was provided by a pharmacist NO - Side effect management information was provided/discussed including but not limited to: anemia, appetite changes, bowel habit changes, cardiac toxicity, electrolyte disturbances, fatigue, hair loss, headache, hypersensitivity reaction, infection, kidney toxicity, myalgia, nausea/vomitting, neutropenia, peripheral neuropathy, shortness of breath, taste changes, thrombocytopenia YES - Provided important phone numbers and contacts during and after hours. YES - Provided information on symptoms that require immediate assistance. YES - Provided Chemotherapy when to call handouts YES - Preventing infection. YES - Treatment schedule and confirmation of appointment times. YES - Available support groups. NA - The importance of contraception during the course of chemotherapy YES - Neutropenic fever protocol discussed with patient, which included the importance of reporting any fever of 100.4F (38.0C) or greater to the healthcare team as noted on the provided wallet card and/or magnet. YES Time Spent: 10 minutes REFERRAL (RECOMMENDATION): N/A Denita Rai RN documented in this encounter [facility] 12-03-2021 History of Present illness Narrative PATIENT NAME: Pedro Gu DATE: 12/03/2021 PRIMARY CARE PHYSICIAN: Dr. Christina Azul OTHER PHYSICIANS: Dr. Verito Whelan, Dr. Marianne Fields (Elements copied from Dr. Grigsby's note dated November 30, 2021, have been reviewed and updated where appropriate, and all reflect current assessment and medical decision making during today's encounter, December 03, 2021) CC: This is a 66 year old male with recently diagnosed lung cancer, here today for treatment INTERIM HISTORY: Mr. Gu returns for treatment. He has been having issues with his BP dropping to 90s systolic at home and getting dizzy when this happens. He is currently only taking his Metoprolol tartrate 25mg tablets, taking 2 tablets BID and his Imdur [place] ER 30 mg daily. His other BP meds are on hold. He is scheduled to see dr. Azul on 12/07/21 for follow up. Otherwise he is feeling well. Denies any fevers, chills, nausea, vomiting or cough or shortness of breath. He is eating and drinking fluids well. Ready to resume treatment today with Carboplatin (substituted for Cisplatin) with Alimta. He has not been taking his folic acid. MEDICATIONS: Current Outpatient Medications Medication Sig metoprolol tartrate, short acting, (LOPRESSOR) 25 mg tablet Take 50 mg by mouth twice daily. isosorbide mononitrate ER (IMDUR) 30 mg 24 hr tablet Take 30 mg by mouth once daily. folic acid 1 mg tablet Take 1 tablet by mouth once daily. ondansetron (ZOFRAN) 8 mg tablet Take 1 tablet by mouth every 8 hours as needed for nausea/vomiting. prochlorperazine (COMPAZINE) 10 mg tablet Take 1 tablet by mouth every 6 hours as needed. cilostazol (PLETAL) 100 mg tablet Take 1 tablet by mouth twice daily. clopidogrel (PLAVIX) 75 mg tablet Take 1 tablet by mouth once daily. aspirin 81 mg chewable tablet Take 81 mg by mouth once daily. tiotropium-olodaterol (STIOLTO RESPIMAT) 2.5-2.5 mcg/actuation Inhale 2 Puffs as instructed once daily. albuterol HFA (PROVENTIL HFA, VENTOLIN HFA) 90 mcg/actuation inhaler albuterol sulfate HFA 90 mcg/actuation aerosol inhaler INHALE 2 PUFFS BY MOUTH EVERY 4 HOURS NEEDED for SHORTNESS OF BREATH atorvastatin (LIPITOR) 40 mg tablet Take 40 mg by mouth once daily. No current facility-administered medications for this visit. Facility-Administered Medications Ordered in Other Visits Medication Dose Route Frequency PEMEtrexed disodium 800 mg in NaCl 0.9% 100 mL (ALIMTA) 500 mg/m2 (Treatment Plan Recorded) INTRAVENOUS ONCE NaCl 0.9% iv infusion 500-999 mL/hr INTRAVENOUS PRN diphenhydrAMINE 50 mg injection (BENADRYL) 50 mg INTRAVENOUS PRN hydrocortisone sodium succinate (PF) 100 mg injection (Solu-CORTEF) 100 mg INTRAVENOUS PRN EPINEPHrine 1 mg/mL (1 mL) 0.3 mg injection 0.3 mg INTRAMUSCULAR PRN sodium chloride 0.9 % (flush) 10-20 mL (BD POSIFLUSH) 10-20 mL INTRAVENOUS PRN sodium chloride 0.9 % (flush) 10-20 mL (BD POSIFLUSH) 10-20 mL INTRAVENOUS DIRECTED PRN CARBOplatin 443.5 mg in NaCl 0.9% 250 mL (PARAPLATIN) 443.5 mg INTRAVENOUS ONCE ALLERGIES: ALLERGIES No Known Allergies PAST MEDICAL HISTORY: PAST MEDICAL HISTORY Diagnosis Date Carotid artery disease (HCC) bilateral COPD (chronic obstructive pulmonary disease) (HCC) Heart attack (HCC) History of non-ST elevation myocardial infarction (NSTEMI) HTN (hypertension) Hypertension 09/25/2021 Lung cancer (HCC) Malignant neoplasm of lower lobe of left lung (HCC) Peripheral arterial disease (HCC) 2019 R REGISTRATION COORDINATOR stent PAST SURGICAL HISTORY: PAST SURGICAL HISTORY Procedure Laterality Date BACK SURGERY HX 2019 CABG (4) VEIN GRAFTS & ARTERIAL GRAFT(S) 2016 LOWER EXTREMITY FUNNEL SETTER W/WO STENT Right 2019 right common femoral artery stent REMOVAL OF LUNG,LOBECTOMY Left 09/26/2021 VATS left upper lung wedge resection, completion lobectomy, lymph node dissection, application of Progel to staple line, intercostal nerve blocks for cancer FAMILY HISTORY: FAMILY HISTORY Problem Relation Age of Onset Lung Cancer Father Heart Attack Father Coronary Artery Disease Father SOCIAL HISTORY: Social History Tobacco Use Smoking status: Former Smoker Packs/day: 2.00 Years: 50.00 Pack years: 100.00 Types: Cigarettes Start date: 1970 Smokeless tobacco: Never Used Tobacco comment: was smoking on and off fully quit 09/14/21 Substance Use Topics Alcohol use: Yes Alcohol/week: 30.0 standard drinks Types: 30 Cans of Beer (12oz) per week Comment: 4-9 beers per day Drug use: Never REVIEW OF SYSTEMS: General: No weight loss, malaise or fevers. HEENT: Negative for frequent or significant headaches. No changes in hearing or vision, no nose bleeds or other nasal problems Respiratory: Negative for cough, wheezing or shortness of breath. Cardiovascular: Negative for chest pain, leg swelling or palpitations. GI: Negative for abdominal discomfort, blood in stools or black stools or change in bowel habits. Positive nausea. : No history of dysuria, frequency or incontinence. Musculoskeletal: Negative for joint pain or swelling, back pain and muscle pain. Skin: Negative for lesions, rash and itching. Hematology/Lymphology: Negative for prolonged bleeding, bruising easily or swollen nodes. Neuro: No history of headaches, syncope, paralysis, seizures or tremors. PHYSICAL EXAM: BP 125/63 Pulse 92 Temp 36.6 C (97.8 F) (Temporal) Resp 16 Ht 168.8 cm (5' 6.46 ) Wt 59.7 kg (131 lb 9.6 oz) SpO2 98% BMI 20.95 kg/m ECOG 0 General: Alert and oriented, no distress, pleasant and cooperative. Heart: Regular, normal S1 and S2, no murmurs, rubs, or gallops Lungs: Clear to auscultation bilaterally Abdomen: Benign Extremities: Feet/ankles without edema, posterior tibial pulses full and symmetrical PATHOLOGY: 09/26/2021 Left upper lobectomy and mediastinal lymphadenectomy. FINAL DIAGNOSIS A, H. 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 - Visceral pleural invasion present. - Tumor invades into parietal pleural/chest wall adipose tissue. - Arterial invasion present. - Five hilar/peribronchial lymph nodes, negative for tumor (0/5). - Emphysema with patchy smoking-related interstitial fibrosis. - Margins negative. B. Lymph node, level 10L, excision: - Negative for tumor (0/1). C. Lymph node, level 5, excision: - Negative for tumor (0/1). D. Lymph node, level 6, excision: - Negative for tumor (0/1). E. Lymph node, level 11L, excision: - Negative for tumor (0/1). F. Lymph node, level 12L, excision: - Negative for tumor (0/1). G. Lymph node, level 11L #2, excision: - Negative for tumor (0/1). I. Lymph node, level 11L #3, excision: - Negative for tumor (0/1). J. Lymph node, level 9L, excision: - Benign fibroadipose tissue, negative for tumor. Molecular markers: RET rearrangement negative, ROS1 negative, BRAF negative, EGFR negative, HER-2 negative, KRAS c34G>T positive, ALK 1 negative, PD-L1 95% LABS: Hemoglobin (g/dL) Date Value 12/03/2021 11.2 07/03/2021 14.2 Hematocrit (%) Date Value 12/03/2021 32.4 07/03/2021 41.8 WBC (k/uL) Date Value 12/03/2021 4.78 07/03/2021 5.83 Platelet Count (k/uL) Date Value 12/03/2021 179 07/03/2021 265 RADIOLOGY/OTHER STUDIES: 10/31/2021 Brain MRI IMPRESSION: No evidence of an acute intracranial process. No intracranial enhancing lesion to suggest metastasis. 09/25/2021 CT chest IMPRESSION: Increased peripheral left upper lobe mass with adjacent curvilinear scarlike opacity concerning for neoplasm. No other acute thoracic disease. 07/11/2021 CT neck IMPRESSION: ASYMMETRIC HIGH DENSITY WITH ILL-DEFINED MARGINS INVOLVING THE ANTERIOR ASPECT OF THE RIGHT PALATINE TONSIL WITHOUT ASSOCIATED NODULARITY. THIS IS A NONSPECIFIC FINDING AND MAY REFLECT HYPEREMIA FROM TONSILLITIS. THIS CORRESPONDS TO THE LOCATION OF FDG ACTIVITY ON THE PRIOR PET/CT EXAM. INTERVAL FOLLOW-UP IMAGING AND/OR DIRECT VISUALIZATION MAY BE OF BENEFIT TO EXCLUDE UNDERLYING SUBTLE MASS. MODERATE DEGENERATIVE CHANGES INVOLVING THE CERVICAL SPINE. MODERATE ATHEROSCLEROSIS AT THE CAROTID BIFURCATIONS. PARANASAL SINUS MUCOSAL THICKENING/SECRETIONS, DESCRIBED ABOVE. SMALL MILLIMETRIC LYMPH NODES SEEN AT SOME NECK LEVELS, NONE SIGNIFICANTLY ENLARGED BY IMAGING SIZE CRITERIA. IMPRESSION: ASYMMETRIC HIGH DENSITY WITH ILL-DEFINED MARGINS INVOLVING THE ANTERIOR ASPECT OF THE RIGHT PALATINE TONSIL WITHOUT ASSOCIATED NODULARITY. THIS IS A NONSPECIFIC FINDING AND MAY REFLECT HYPEREMIA FROM TONSILLITIS. THIS CORRESPONDS TO THE LOCATION OF FDG ACTIVITY ON THE PRIOR PET/CT EXAM. INTERVAL FOLLOW-UP IMAGING AND/OR DIRECT VISUALIZATION MAY BE OF BENEFIT TO EXCLUDE UNDERLYING SUBTLE MASS. MODERATE DEGENERATIVE CHANGES INVOLVING THE CERVICAL SPINE. MODERATE ATHEROSCLEROSIS AT THE CAROTID BIFURCATIONS. PARANASAL SINUS MUCOSAL THICKENING/SECRETIONS, DESCRIBED ABOVE. SMALL MILLIMETRIC LYMPH NODES SEEN AT SOME NECK LEVELS, NONE SIGNIFICANTLY ENLARGED BY IMAGING SIZE CRITERIA. CT neck 05/28/2021 PET scan IMPRESSION: 1. NECK: * FDG avid soft tissue mass in the right tonsil region could represent tonsillitis versus neoplastic process. Correlate with ENT exam. 2. CHEST: * Enlarging left upper lobe nodule measuring 2.7 x 1.8 cm with max SUV of 4.8 suspicious for neoplasm. No mediastinal or hilar lymphadenopathy. 3. ABDOMEN/PELVIS: * No FDG avid neoplastic process. . 4. EXTREMITIES/SKELETON: * No suspicious FDG avid osseous lesion. ASSESSMENT/PLAN: 1. 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 Status post left upper lobectomy and mediastinal lymphadenectomy 09/26/2021. The primary tumor involved the visceral and parietal pleura with evidence of invasion into the chest wall adipose tissue. Surgical margins negative. The patient recovered from surgery well. Postop it was elected to proceed with adjuvant chemotherapy consisting of cisplatin plus pemetrexed x4 cycles followed by adjuvant radiation therapy. After completing adjuvant radiation therapy adjuvant immunotherapy with nivolumab x1 year will be considered. The patient received his first cycle of chemotherapy on 11/05/2021. Unfortunately, labs obtained 11/12/2021 revealed significant renal dysfunction with a creatinine of 2.66. The patient received aggressive IV fluids and his renal function has improved. Options for management discussed, we have elected to change the patient's treatment to carboplatin plus pemetrexed. Today his labs are reviewed and stable. We will give carbo/alimta today and see him next week for repeat labs and toxicity check. I have reviewed the importance of folic acid and he agreed to take it. 2. Centrilobular emphysema (HCC) - ICD9: 492.8, ICD10: J43.2 Long history of tobacco abuse, quit September 2021. Chronic shortness of breath and cough stable on current medications. Continue management per pulmonary/PCP. 3. Coronary artery disease Status post AMI 2016. Status post CABG x 4 in [place] 2015. Currently stable. Continue management per PCP/cardiology. 4. Peripheral vascular disease Status post balloon angioplasty right lower leg 2019. On long-term antiplatelet agents with Plavix and Pletal. Continue management per PCP/vascular surgery. 5. Abnormal right tonsil on PET scan (05/28/2021) and neck CT (07/11/2021). Radiographic abnormalities identified on baseline PET scan and neck CT. The patient was seen by [facility] on 07/26/2021. Clinical evaluation most consistent with inflammatory/post-infectious findings. No suspicion for malignancy. The patient apparently chews tobacco, and was advised to discontinue. Follow-up with ENT as indicated. 6. Renal dysfunction The patient received chemotherapy with cisplatin and pemetrexed on 11/05/2021. Subsequent labs revealed significant renal dysfunction with creatinine elevation 2.66 on 11/12/2021. With IV fluids (and discontinuation of cisplatin) the patient is renal function has improved. We will monitor closely. 7. Hypotension Patient is having periods of low BPs at home. I advised him to decrease his metoprolol to 25mg BID and monitor BPs at home. If remain low, may need to discontinue metoprolol completely. He will follow up with PCP as scheduled. Mindy Pandya PA-C documented in this encounter [facility] 12-03-2021 Miscellaneous Notes Records faxed. Appt with PCP Dr Azul for hypotension on Friday12-07-21 1:45pm Pérez Randolph is known to Dr azul but please send most recent records including med list and Blood pressure. Dr Azul has a new fax # [phone] documented in this encounter [facility] 11-30-2021 History of Present illness Narrative PATIENT NAME: Pedro Gu DATE: 11/30/2021 PRIMARY CARE PHYSICIAN: Dr. Christina Azul OTHER PHYSICIANS: Dr. Verito Whelan, Dr. Marianne Fields Portions of this encounter note have been copied from the note from 11/26/2021 and has been updated where appropriate, and reflect my current medical decision making from today. CC: This is a 66 year old male with recently diagnosed lung cancer, here today for an urgent visit. INTERIM HISTORY: Pedro Gu is here today for an urgent visit after he called the office on 11/29/2021 with the following complaints: Pt reports low blood pressures. BP was 70/60 this morning. Repeat BP 90's/60's. Pt c/o feeling dizzy and fatigued. Reports he stopped his Clonidine, Toprol, and Isosorbide some time ago due to his pressures dropping. Notes he's drinking a lot of water. Advised pt that he should f/u w/ his PCP (Dr Azul) regarding his pressures. Pt states he's made several attempts but has not received a reply. Call placed to Dr Azul's office on the pt's behalf. Office is closed on . What do you advise? Denita Rai RN Today, he states that he is feeling better. He had breakfast this morning consisting of eggs, potatoes and toast. He states that he drinks a lot of water and typically drinks 2 to 3 quarts a day. He has been off his blood pressure medications for a while. He has a history of open heart surgery. He is urinating without pain, burning or difficulty. He has chronic shortness of breath and cough. He denies fevers, chills and signs/symptoms of infection. He states that he gets cold easily. He has nausea and takes antiemetics daily. He denies any vomiting. MEDICATIONS: Current Outpatient Medications Medication Sig cilostazol (PLETAL) 100 mg tablet Take 1 tablet by mouth twice daily. clopidogrel (PLAVIX) 75 mg tablet Take 1 tablet by mouth once daily. aspirin 81 mg chewable tablet Take 81 mg by mouth once daily. isosorbide dinitrate (ISORDIL) 10 mg tablet TAKE 1 TABLET BY MOUTH EVERY MORNING and TAKE 1 TABLET BY MOUTH EVERY afternoon atorvastatin (LIPITOR) 40 mg tablet Take 40 mg by mouth once daily. metoprolol tartrate, short acting, (LOPRESSOR) 25 mg tablet Take 25 mg by mouth once daily. ALPRAZolam (XANAX) 0.25 mg tablet Take 0.25 mg by mouth three times daily as needed. cloNIDine HCl (CATAPRES) 0.1 mg tablet Take 0.1 mg by mouth three times daily. (Patient not taking: Reported on 11/30/2021 ) isosorbide dinitrate (ISORDIL, SORBITRATE) 30 mg tablet Take 30 mg by mouth twice daily. metoprolol tartrate, short acting, (LOPRESSOR) 50 mg tablet Take 50 mg by mouth twice daily. folic acid 1 mg tablet Take 1 tablet by mouth once daily. ondansetron (ZOFRAN) 8 mg tablet Take 1 tablet by mouth every 8 hours as needed for nausea/vomiting. prochlorperazine (COMPAZINE) 10 mg tablet Take 1 tablet by mouth every 6 hours as needed. tiotropium-olodaterol (STIOLTO RESPIMAT) 2.5-2.5 mcg/actuation Inhale 2 Puffs as instructed once daily. albuterol HFA (PROVENTIL HFA, VENTOLIN HFA) 90 mcg/actuation inhaler albuterol sulfate HFA 90 mcg/actuation aerosol inhaler INHALE 2 PUFFS BY MOUTH EVERY 4 HOURS NEEDED for SHORTNESS OF BREATH No current facility-administered medications for this visit. ALLERGIES: ALLERGIES No Known Allergies PAST MEDICAL HISTORY: PAST MEDICAL HISTORY Diagnosis Date Carotid artery disease (HCC) bilateral COPD (chronic obstructive pulmonary disease) (HCC) Heart attack (HCC) History of non-ST elevation myocardial infarction (NSTEMI) HTN (hypertension) Hypertension 09/25/2021 Lung cancer (HCC) Malignant neoplasm of lower lobe of left lung (HCC) Peripheral arterial disease (HCC) 2019 R REGISTRATION COORDINATOR stent PAST SURGICAL HISTORY: PAST SURGICAL HISTORY Procedure Laterality Date BACK SURGERY HX 2019 CABG (4) VEIN GRAFTS & ARTERIAL GRAFT(S) 2016 LOWER EXTREMITY FUNNEL SETTER W/WO STENT Right 2019 right common femoral artery stent REMOVAL OF LUNG,LOBECTOMY Left 09/26/2021 VATS left upper lung wedge resection, completion lobectomy, lymph node dissection, application of Progel to staple line, intercostal nerve blocks for cancer FAMILY HISTORY: FAMILY HISTORY Problem Relation Age of Onset Lung Cancer Father Heart Attack Father Coronary Artery Disease Father SOCIAL HISTORY: Social History Tobacco Use Smoking status: Former Smoker Packs/day: 2.00 Years: 50.00 Pack years: 100.00 Types: Cigarettes Start date: 1970 Smokeless tobacco: Never Used Tobacco comment: was smoking on and off fully quit 09/14/21 Substance Use Topics Alcohol use: Yes Alcohol/week: 30.0 standard drinks Types: 30 Cans of Beer (12oz) per week Comment: 4-9 beers per day Drug use: Never REVIEW OF SYSTEMS: General: No weight loss, malaise or fevers. HEENT: Negative for frequent or significant headaches. No changes in hearing or vision, no nose bleeds or other nasal problems Respiratory: Negative for cough, wheezing or shortness of breath. Cardiovascular: Negative for chest pain, leg swelling or palpitations. GI: Negative for abdominal discomfort, blood in stools or black stools or change in bowel habits. Positive nausea. : No history of dysuria, frequency or incontinence. Musculoskeletal: Negative for joint pain or swelling, back pain and muscle pain. Skin: Negative for lesions, rash and itching. Hematology/Lymphology: Negative for prolonged bleeding, bruising easily or swollen nodes. Neuro: No history of headaches, syncope, paralysis, seizures or tremors. PHYSICAL EXAM: BP 95/55 Pulse 90 Temp 36.3 C (97.3 F) (Temporal) Resp 16 Ht 168.8 cm (5' 6.46 ) Wt 58.2 kg (128 lb 6.4 oz) SpO2 98% BMI 20.44 kg/m ECOG 0 Exam limited to gross visualization where appropriate due to COVID-19. Gen.: This is an age-appropriate patient in no acute distress. Head: Appears atraumatic with no visible lesions. Eyes: Pupils equally round and reactive to light, extraocular muscles are intact. Neck: Supple. Mouth: Masked. Respiratory: Appears to be respiring comfortably. Neurologic: Nonfocal to gross visualization. Alert and oriented 3. Psychiatric: No evidence of inappropriate anxiety or depression. Skin: Visible areas of skin without rash, lesions, wounds or petechiae. PATHOLOGY: 09/26/2021 Left upper lobectomy and mediastinal lymphadenectomy. FINAL DIAGNOSIS A, H. 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 - Visceral pleural invasion present. - Tumor invades into parietal pleural/chest wall adipose tissue. - Arterial invasion present. - Five hilar/peribronchial lymph nodes, negative for tumor (0/5). - Emphysema with patchy smoking-related interstitial fibrosis. - Margins negative. B. Lymph node, level 10L, excision: - Negative for tumor (0/1). C. Lymph node, level 5, excision: - Negative for tumor (0/1). D. Lymph node, level 6, excision: - Negative for tumor (0/1). E. Lymph node, level 11L, excision: - Negative for tumor (0/1). F. Lymph node, level 12L, excision: - Negative for tumor (0/1). G. Lymph node, level 11L #2, excision: - Negative for tumor (0/1). I. Lymph node, level 11L #3, excision: - Negative for tumor (0/1). J. Lymph node, level 9L, excision: - Benign fibroadipose tissue, negative for tumor. Molecular markers: RET rearrangement negative, ROS1 negative, BRAF negative, EGFR negative, HER-2 negative, KRAS c34G>T positive, ALK 1 negative, PD-L1 95% LABS: Hemoglobin (g/dL) Date Value 11/30/2021 11.4 07/03/2021 14.2 Hematocrit (%) Date Value 11/30/2021 33.5 07/03/2021 41.8 WBC (k/uL) Date Value 11/30/2021 3.92 07/03/2021 5.83 Platelet Count (k/uL) Date Value 11/30/2021 236 07/03/2021 265 RADIOLOGY/OTHER STUDIES: 10/31/2021 Brain MRI IMPRESSION: No evidence of an acute intracranial process. No intracranial enhancing lesion to suggest metastasis. 09/25/2021 CT chest IMPRESSION: Increased peripheral left upper lobe mass with adjacent curvilinear scarlike opacity concerning for neoplasm. No other acute thoracic disease. 07/11/2021 CT neck IMPRESSION: ASYMMETRIC HIGH DENSITY WITH ILL-DEFINED MARGINS INVOLVING THE ANTERIOR ASPECT OF THE RIGHT PALATINE TONSIL WITHOUT ASSOCIATED NODULARITY. THIS IS A NONSPECIFIC FINDING AND MAY REFLECT HYPEREMIA FROM TONSILLITIS. THIS CORRESPONDS TO THE LOCATION OF FDG ACTIVITY ON THE PRIOR PET/CT EXAM. INTERVAL FOLLOW-UP IMAGING AND/OR DIRECT VISUALIZATION MAY BE OF BENEFIT TO EXCLUDE UNDERLYING SUBTLE MASS. MODERATE DEGENERATIVE CHANGES INVOLVING THE CERVICAL SPINE. MODERATE ATHEROSCLEROSIS AT THE CAROTID BIFURCATIONS. PARANASAL SINUS MUCOSAL THICKENING/SECRETIONS, DESCRIBED ABOVE. SMALL MILLIMETRIC LYMPH NODES SEEN AT SOME NECK LEVELS, NONE SIGNIFICANTLY ENLARGED BY IMAGING SIZE CRITERIA. IMPRESSION: ASYMMETRIC HIGH DENSITY WITH ILL-DEFINED MARGINS INVOLVING THE ANTERIOR ASPECT OF THE RIGHT PALATINE TONSIL WITHOUT ASSOCIATED NODULARITY. THIS IS A NONSPECIFIC FINDING AND MAY REFLECT HYPEREMIA FROM TONSILLITIS. THIS CORRESPONDS TO THE LOCATION OF FDG ACTIVITY ON THE PRIOR PET/CT EXAM. INTERVAL FOLLOW-UP IMAGING AND/OR DIRECT VISUALIZATION MAY BE OF BENEFIT TO EXCLUDE UNDERLYING SUBTLE MASS. MODERATE DEGENERATIVE CHANGES INVOLVING THE CERVICAL SPINE. MODERATE ATHEROSCLEROSIS AT THE CAROTID BIFURCATIONS. PARANASAL SINUS MUCOSAL THICKENING/SECRETIONS, DESCRIBED ABOVE. SMALL MILLIMETRIC LYMPH NODES SEEN AT SOME NECK LEVELS, NONE SIGNIFICANTLY ENLARGED BY IMAGING SIZE CRITERIA. CT neck 05/28/2021 PET scan IMPRESSION: 1. NECK: * FDG avid soft tissue mass in the right tonsil region could represent tonsillitis versus neoplastic process. Correlate with ENT exam. 2. CHEST: * Enlarging left upper lobe nodule measuring 2.7 x 1.8 cm with max SUV of 4.8 suspicious for neoplasm. No mediastinal or hilar lymphadenopathy. 3. ABDOMEN/PELVIS: * No FDG avid neoplastic process. . 4. EXTREMITIES/SKELETON: * No suspicious FDG avid osseous lesion. ASSESSMENT/PLAN: 1. 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 Status post left upper lobectomy and mediastinal lymphadenectomy 09/26/2021. The primary tumor involved the visceral and parietal pleura with evidence of invasion into the chest wall adipose tissue. Surgical margins negative. The patient recovered from surgery well. Postop it was elected to proceed with adjuvant chemotherapy consisting of cisplatin plus pemetrexed x4 cycles followed by adjuvant radiation therapy. After completing adjuvant radiation therapy adjuvant immunotherapy with nivolumab x1 year will be considered. The patient received his first cycle of chemotherapy on 11/05/2021. Unfortunately, labs obtained 11/12/2021 revealed significant renal dysfunction with a creatinine of 2.66. The patient received aggressive IV fluids and his renal function has improved. Options for management discussed, we have elected to change the patient's treatment to carboplatin plus pemetrexed. He received cycle 1 on 11/05/2021. 2. Centrilobular emphysema (HCC) - ICD9: 492.8, ICD10: J43.2 Long history of tobacco abuse, quit September 2021. Chronic shortness of breath and cough stable on current medications. Continue management per pulmonary/PCP. 3. Coronary artery disease Status post AMI 2015. Status post CABG x 4 in [place] 2015. Currently stable. Continue management per PCP/cardiology. 4. Peripheral vascular disease Status post balloon angioplasty right lower leg 2019. On long-term antiplatelet agents with Plavix and Pletal. Continue management per PCP/vascular surgery. 5. Abnormal right tonsil on PET scan (05/28/2021) and neck CT (07/11/2021). Radiographic abnormalities identified on baseline PET scan and neck CT. The patient was seen by [facility] on 07/26/2021. Clinical evaluation most consistent with inflammatory/post-infectious findings. No suspicion for malignancy. The patient apparently chews tobacco, and was advised to discontinue. Follow-up with ENT as indicated. 6. Renal dysfunction The patient received chemotherapy with cisplatin and pemetrexed on 11/05/2021. Subsequent labs revealed significant renal dysfunction with creatinine elevation 2.66 on 11/12/2021. With IV fluids (and discontinuation of cisplatin) the patient is renal function has improved. We will monitor closely. Patient will remain off of the blood pressure medications. We will assist with getting patient an appointment with his PCP. Will give 1 L of normal saline today. He will return as scheduled on 11/03/2021 for follow-up, labs and treatment. Brent Miller APRN.RONAL documented in this encounter [facility] 11-30-2021 Nurse Note Patient states he is feeling better today, he even went out for Breakfast. Pavithra Jacinto MA documented in this encounter [facility] 11-29-2021 Miscellaneous Notes Pt notified and agrees w/ plan. Call transferred to MONA Beck, for scheduling. BRM: CBC, CMP orders pended for tomorrow. Denita Rai RN Please schedule appointment tomorrow for labs and to see Brent. In the meantime stay off the blood pressure medications. Thanks, BRM Pt reports low blood pressures. BP was 70/60 this morning. Repeat BP 90's/60's. Pt c/o feeling dizzy and fatigued. Reports he stopped his Clonidine, Toprol, and Isosorbide some time ago due to his pressures dropping. Notes he's drinking a lot of water. Advised pt that he should f/u w/ his PCP (Dr Azul) regarding his pressures. Pt states he's made several attempts but has not received a reply. Call placed to Dr Azul's office on the pt's behalf. Office is closed on . What do you advise? Denita Rai RN documented in this encounter [facility] 11-26-2021 History of Present illness Narrative PATIENT NAME: Pedro Gu DATE: 11/26/2021 PRIMARY CARE PHYSICIAN: Dr. Christina Azul OTHER PHYSICIANS: Dr. Verito Whelan, Dr. Marianne Fields Portions of this encounter note have been copied from the note from 11/12/2021 and has been updated where appropriate, and reflect my current medical decision making from today. CC: This is a 66 year old male with recently diagnosed lung cancer, seen for scheduled follow-up. INTERIM HISTORY: The patient received his first cycle of chemotherapy on 11/05/2021. He had moderate nausea and change in bowel habits (constipation followed by diarrhea), otherwise no significant side effects. Unfortunately, labs revealed significant worsening of his renal function with maximum creatinine of 2.66 on 11/12/2021. He received aggressive IV fluids and his renal function has since improved. Throughout this time he has had no difficulty with urination, nausea, vomiting or diarrhea. The patient also has had issues with blood pressure, and was recently started on a new blood pressure medication by his PCP. (He is unsure as to the name of the drug.) MEDICATIONS: Current Outpatient Medications Medication Sig cloNIDine HCl (CATAPRES) 0.1 mg tablet Take 0.1 mg by mouth three times daily. isosorbide dinitrate (ISORDIL, SORBITRATE) 30 mg tablet Take 30 mg by mouth twice daily. levoFLOXacin (LEVAQUIN) 750 mg tablet Take 750 mg by mouth once daily. metoprolol tartrate, short acting, (LOPRESSOR) 50 mg tablet Take 50 mg by mouth twice daily. folic acid 1 mg tablet Take 1 tablet by mouth once daily. ondansetron (ZOFRAN) 8 mg tablet Take 1 tablet by mouth every 8 hours as needed for nausea/vomiting. prochlorperazine (COMPAZINE) 10 mg tablet Take 1 tablet by mouth every 6 hours as needed. cilostazol (PLETAL) 100 mg tablet Take 1 tablet by mouth twice daily. clopidogrel (PLAVIX) 75 mg tablet Take 1 tablet by mouth once daily. aspirin 81 mg chewable tablet Take 81 mg by mouth once daily. isosorbide dinitrate (ISORDIL) 10 mg tablet TAKE 1 TABLET BY MOUTH EVERY MORNING and TAKE 1 TABLET BY MOUTH EVERY afternoon tiotropium-olodaterol (STIOLTO RESPIMAT) 2.5-2.5 mcg/actuation Inhale 2 Puffs as instructed once daily. albuterol HFA (PROVENTIL HFA, VENTOLIN HFA) 90 mcg/actuation inhaler albuterol sulfate HFA 90 mcg/actuation aerosol inhaler INHALE 2 PUFFS BY MOUTH EVERY 4 HOURS NEEDED for SHORTNESS OF BREATH atorvastatin (LIPITOR) 40 mg tablet Take 40 mg by mouth once daily. metoprolol tartrate, short acting, (LOPRESSOR) 25 mg tablet Take 25 mg by mouth once daily. No current facility-administered medications for this visit. ALLERGIES: ALLERGIES No Known Allergies PAST MEDICAL HISTORY: PAST MEDICAL HISTORY Diagnosis Date Carotid artery disease (HCC) bilateral COPD (chronic obstructive pulmonary disease) (HCC) Heart attack (HCC) History of non-ST elevation myocardial infarction (NSTEMI) HTN (hypertension) Hypertension 09/25/2021 Lung cancer (HCC) Malignant neoplasm of lower lobe of left lung (HCC) Peripheral arterial disease (HCC) 2019 R REGISTRATION COORDINATOR stent PAST SURGICAL HISTORY: PAST SURGICAL HISTORY Procedure Laterality Date BACK SURGERY HX 2019 CABG (4) VEIN GRAFTS & ARTERIAL GRAFT(S) 2016 LOWER EXTREMITY FUNNEL SETTER W/WO STENT Right 2019 right common femoral artery stent REMOVAL OF LUNG,LOBECTOMY Left 09/26/2021 VATS left upper lung wedge resection, completion lobectomy, lymph node dissection, application of Progel to staple line, intercostal nerve blocks for cancer FAMILY HISTORY: FAMILY HISTORY Problem Relation Age of Onset Lung Cancer Father Heart Attack Father Coronary Artery Disease Father SOCIAL HISTORY: Social History Tobacco Use Smoking status: Former Smoker Packs/day: 2.00 Years: 50.00 Pack years: 100.00 Types: Cigarettes Start date: 1970 Smokeless tobacco: Never Used Tobacco comment: was smoking on and off fully quit 09/14/21 Substance Use Topics Alcohol use: Yes Alcohol/week: 30.0 standard drinks Types: 30 Cans of Beer (12oz) per week Comment: 4-9 beers per day Drug use: Never REVIEW OF SYSTEMS: General: No weight loss, malaise or fevers. HEENT: Negative for frequent or significant headaches. No changes in hearing or vision, no nose bleeds or other nasal problems Respiratory: Negative for cough, wheezing or shortness of breath. Cardiovascular: Negative for chest pain, leg swelling or palpitations. GI: Negative for abdominal discomfort, blood in stools or black stools or change in bowel habits. : No history of dysuria, frequency or incontinence. Musculoskeletal: Negative for: joint pain or swelling, back pain and muscle pain. Skin: Negative for lesions, rash and itching. Hematology/Lymphology: Negative for prolonged bleeding, bruising easily or swollen nodes. Neuro: No history of headaches, syncope, paralysis, seizures or tremors. PHYSICAL EXAM: BP 111/65 Pulse 75 Temp 36.4 C (97.5 F) (Temporal) Resp 16 Ht 168.8 cm (5' 6.46 ) Wt 59.1 kg (130 lb 3.2 oz) SpO2 100% BMI 20.73 kg/m ECOG 0 Exam limited to gross visualization where appropriate due to COVID-19. Gen.: This is an age-appropriate patient in no acute distress. Head: Appears atraumatic with no visible lesions. Eyes: Pupils equally round and reactive to light, extraocular muscles are intact. Neck: Supple. Mouth: Masked. Respiratory: Appears to be respiring comfortably. Neurologic: Nonfocal to gross visualization. Alert and oriented 3. Psychiatric: No evidence of inappropriate anxiety or depression. Skin: Visible areas of skin without rash, lesions, wounds or petechiae. PATHOLOGY: 09/26/2021 Left upper lobectomy and mediastinal lymphadenectomy. FINAL DIAGNOSIS A, H. 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 - Visceral pleural invasion present. - Tumor invades into parietal pleural/chest wall adipose tissue. - Arterial invasion present. - Five hilar/peribronchial lymph nodes, negative for tumor (0/5). - Emphysema with patchy smoking-related interstitial fibrosis. - Margins negative. B. Lymph node, level 10L, excision: - Negative for tumor (0/1). C. Lymph node, level 5, excision: - Negative for tumor (0/1). D. Lymph node, level 6, excision: - Negative for tumor (0/1). E. Lymph node, level 11L, excision: - Negative for tumor (0/1). F. Lymph node, level 12L, excision: - Negative for tumor (0/1). G. Lymph node, level 11L #2, excision: - Negative for tumor (0/1). I. Lymph node, level 11L #3, excision: - Negative for tumor (0/1). J. Lymph node, level 9L, excision: - Benign fibroadipose tissue, negative for tumor. Molecular markers: RET rearrangement negative, ROS1 negative, BRAF negative, EGFR negative, HER-2 negative, KRAS c34G>T positive, ALK 1 negative, PD-L1 95% LABS: Hemoglobin (g/dL) Date Value 11/26/2021 10.7 07/03/2021 14.2 Hematocrit (%) Date Value 11/26/2021 32.2 07/03/2021 41.8 WBC (k/uL) Date Value 11/26/2021 3.13 07/03/2021 5.83 Platelet Count (k/uL) Date Value 11/26/2021 324 07/03/2021 265 RADIOLOGY/OTHER STUDIES: 10/31/2021 Brain MRI IMPRESSION: No evidence of an acute intracranial process. No intracranial enhancing lesion to suggest metastasis. 09/25/2021 CT chest IMPRESSION: Increased peripheral left upper lobe mass with adjacent curvilinear scarlike opacity concerning for neoplasm. No other acute thoracic disease. 07/11/2021 CT neck IMPRESSION: ASYMMETRIC HIGH DENSITY WITH ILL-DEFINED MARGINS INVOLVING THE ANTERIOR ASPECT OF THE RIGHT PALATINE TONSIL WITHOUT ASSOCIATED NODULARITY. THIS IS A NONSPECIFIC FINDING AND MAY REFLECT HYPEREMIA FROM TONSILLITIS. THIS CORRESPONDS TO THE LOCATION OF FDG ACTIVITY ON THE PRIOR PET/CT EXAM. INTERVAL FOLLOW-UP IMAGING AND/OR DIRECT VISUALIZATION MAY BE OF BENEFIT TO EXCLUDE UNDERLYING SUBTLE MASS. MODERATE DEGENERATIVE CHANGES INVOLVING THE CERVICAL SPINE. MODERATE ATHEROSCLEROSIS AT THE CAROTID BIFURCATIONS. PARANASAL SINUS MUCOSAL THICKENING/SECRETIONS, DESCRIBED ABOVE. SMALL MILLIMETRIC LYMPH NODES SEEN AT SOME NECK LEVELS, NONE SIGNIFICANTLY ENLARGED BY IMAGING SIZE CRITERIA. IMPRESSION: ASYMMETRIC HIGH DENSITY WITH ILL-DEFINED MARGINS INVOLVING THE ANTERIOR ASPECT OF THE RIGHT PALATINE TONSIL WITHOUT ASSOCIATED NODULARITY. THIS IS A NONSPECIFIC FINDING AND MAY REFLECT HYPEREMIA FROM TONSILLITIS. THIS CORRESPONDS TO THE LOCATION OF FDG ACTIVITY ON THE PRIOR PET/CT EXAM. INTERVAL FOLLOW-UP IMAGING AND/OR DIRECT VISUALIZATION MAY BE OF BENEFIT TO EXCLUDE UNDERLYING SUBTLE MASS. MODERATE DEGENERATIVE CHANGES INVOLVING THE CERVICAL SPINE. MODERATE ATHEROSCLEROSIS AT THE CAROTID BIFURCATIONS. PARANASAL SINUS MUCOSAL THICKENING/SECRETIONS, DESCRIBED ABOVE. SMALL MILLIMETRIC LYMPH NODES SEEN AT SOME NECK LEVELS, NONE SIGNIFICANTLY ENLARGED BY IMAGING SIZE CRITERIA. CT neck 05/28/2021 PET scan IMPRESSION: 1. NECK: * FDG avid soft tissue mass in the right tonsil region could represent tonsillitis versus neoplastic process. Correlate with ENT exam. 2. CHEST: * Enlarging left upper lobe nodule measuring 2.7 x 1.8 cm with max SUV of 4.8 suspicious for neoplasm. No mediastinal or hilar lymphadenopathy. 3. ABDOMEN/PELVIS: * No FDG avid neoplastic process. . 4. EXTREMITIES/SKELETON: * No suspicious FDG avid osseous lesion. ASSESSMENT/PLAN: 1. 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 Status post left upper lobectomy and mediastinal lymphadenectomy 09/26/2021. The primary tumor involved the visceral and parietal pleura with evidence of invasion into the chest wall adipose tissue. Surgical margins negative. The patient recovered from surgery well. Postop it was elected to proceed with adjuvant chemotherapy consisting of cisplatin plus pemetrexed x4 cycles followed by adjuvant radiation therapy. After completing adjuvant radiation therapy adjuvant immunotherapy with nivolumab x1 year will be considered. The patient received his first cycle of chemotherapy on 11/05/2021. Unfortunately, labs obtained 11/12/2021 revealed significant renal dysfunction with a creatinine of 2.66. The patient received aggressive IV fluids and his renal function has improved. Options for management discussed, we have elected to change the patient's treatment to carboplatin plus pemetrexed. He will return in 1 week to start. 2. Centrilobular emphysema (HCC) - ICD9: 492.8, ICD10: J43.2 Long history of tobacco abuse, quit September 2021. Chronic shortness of breath and cough stable on current medications. Continue management per pulmonary/PCP. 3. Coronary artery disease Status post AMI 2016. Status post CABG x 4 in [place] 2015. Currently stable. Continue management per PCP/cardiology. 4. Peripheral vascular disease Status post balloon angioplasty right lower leg 2019. On long-term antiplatelet agents with Plavix and Pletal. Continue management per PCP/vascular surgery. 5. Abnormal right tonsil on PET scan (05/28/2021) and neck CT (07/11/2021). Radiographic abnormalities identified on baseline PET scan and neck CT. The patient was seen by [facility] on 07/26/2021. Clinical evaluation most consistent with inflammatory/post-infectious findings. No suspicion for malignancy. The patient apparently chews tobacco, and was advised to discontinue. Follow-up with ENT as indicated. 6. Renal dysfunction The patient received chemotherapy with cisplatin and pemetrexed on 11/05/2021. Subsequent labs revealed significant renal dysfunction with creatinine elevation 2.66 on 11/12/2021. With IV fluids (and discontinuation of cisplatin) the patient is renal function has improved. We will monitor closely. Pito Grigsby MD documented in this encounter [facility] 11-19-2021 Miscellaneous Notes Per Jaclyn @ Dr Azul's office, pt has an appointment tomorrow @ 3 PM. Denita Rai RN Bmp and iv fluid orders placed for 11/21/21 Mindy Pandya PA-C Patient received IVF today. BP 123/71 recheck. KERRY OlsonCC has discussed BP med management and will coordinate follow up with PCP. will order additional IV hydration Friday with lab recheck as Cr is better but still elevated at 2.09 Ros Navarro RN documented in this encounter [facility] 11-19-2021 Miscellaneous Notes Voicemail message received from Jaclyn @ Dr Azul's office. They can see pt tomorrow @ 1030 AM. Pt notified and states that he has an appointment in [facility] tomorrow. Call placed to Dr Azul's office. Message left w/ office voicemail informing them of the above. Requested they contact the pt to schedule an appointment. Also advised pt to reach out to Dr Azul's office as well. Pt verbalizes understanding and plans to call them when he gets home. Will also continue to monitor his pressures at home. Denita Rai RN Pt was admitted over the weekend due to hypertension. Discharged yesterday. While admitted his Metoprolol was increased to 50 mg BID and Isosorbide increased to 30 mg BID. Clonopine 0.1 mg TID added as well. Pt's BP while here for fluids today was 87/51. Pt c/o feeling fatigued and woozy . Post fluids his BP was 123/71. Call placed to pt's PCP, Dr Azul, to request appointment. Message left w/ office voicemail requesting call back. Deniat Rai RN documented in this encounter [facility] 11-19-2021 Miscellaneous Notes DISCHARGE CALL BACK Today's date: November 19, 2021 Notified of Pt discharge by: Hospital records requested. Patient discharged on 11/18/[address] [facility] to Home Primary Cancer Diagnosis: Lung Cancer Admitting Diagnosis: Hypertension, Acute renal failure Discharge Summary/SBAR reviewed: Yes Handoff Discussed with Transitional Admitting Representative: NO Psychosocial Risk Factors: None If patient discharged to SNF/Rehab Facility, phone call completed to reinforce discharge instructions and follow up: N/A Call Disposition: Admission unrelated to cancer diagnosis/treatment. Spoke w/ pt today who reports his medications were adjusted while admitted. Isosorbide increased to 30 mg BID and Metoprolol increased to 50 mg BID. Sent home w/ Clonidine 0.1 mg TID as well. Pt's systolic BP is 87 while in the office today. C/o feeling fatigued and woozy . Call placed to pt's PCP, Dr Azul. No answer at desk. Message left requesting call back. Denita Rai RN documented in this encounter [facility] 11-16-2021 Miscellaneous Notes Pt notified and verbalizes understanding. Agrees to go to [facility] ER for eval. Report phoned to Kelli @ [facility] ER. Med list and today's labs faxed. Denita Rai RN With his current kidney function and BP elevation, it is best he go to ER Mindy Pandya PA-C Pt's BP in treatment today was 187/113. Repeated at home just now was 184/111. Pt notes he had a migraine like headache last night. Dull headache today. Takes Metoprolol 25 mg BID as prescribed per his [facility] Color Television Console Monitor. Advised he notify his strip machine operator of his readings. Any other suggestions for him? Should he go to the ER since it is so late in the day? Denita Rai RN documented in this encounter [facility] 11-16-2021 Miscellaneous Notes Orders signed Mindy Pandya PA-C Pt here for repeat BMP and IV fluids. Labs drawn today w/ IV start. Creat 2.33. Nurse reports the pt's skin is dry w/ poor turgor. Pt notes that he is drinking ice water at home. Had [address] Grigsby notified of the above and instructs to have pt return on Friday, 11/19, for repeat labs and IV fluids. Dr's recommendations reviewed w/ pt. Instructed pt to increase his fluid intake over the weekend. Advised he avoid alcohol and caffeine. Pt verbalizes understanding and agrees. MONA Brennan, to schedule appointment. WILIAM/: Lab order pended. Please place orders for IV fluids. Thanks! Denita Rai RN documented in this encounter [facility] 11-16-2021 History of Present illness Narrative Creat 2.33. Pedrohussain, attending ambulatory care spoke with Dr. Grigsby and to patient. Patient is to come in on Friday for repeat labs and IVF. Vanessa Cruz RN Pt took BP meds at about 0930, he will recheck his BP at home in 2 hours. Aruelia Bradley RN documented in this encounter [facility] 11-14-2021 Miscellaneous Notes Done Mindy Pandya PA-C BRM/: Lab order pended. In addition, please place fluid orders for tomorrow and Friday. Thanks! Denita Ria RN Patient added to treatment schedule. Lisa Figueroa Today's creat 2.41. Labs reviewed per Dr Grigsby who orders the followin. Given 1 Liter NS tomorrow and Friday. 2. Repeat BMP on Friday. Pt notified of the above and verbalizes understanding. Clerical: Pt will be in @ 230 tomorrow and Friday. Please add him to the treatment schedule. Thanks! documented in this encounter [facility] 11-13-2021 History of Present illness Narrative SOCIAL WORK FOLLOW UP NOTE: [facility] Date of service:11/13/21 Pedro Gu is being seen for a follow up social work visit. Today's visit includes: patient TOPICS ADDRESSED: coping/support PLAN: Continue follow up as needed SW met with this Patient in the infusion room. Patient appears to alert, oriented, pleasant, calm and cooperative. SW explained the role of an Oncology SW and provided a handout listing the services offered. Patient denied the need for SW services at this time. SW will remain available and will follow up as appropriate. SUMA Finnegan documented in this encounter [facility] 11-13-2021 History of Present illness Narrative IVF today and labs tomorrow. Vanessa Cruz RN documented in this encounter [facility] 11-12-2021 Miscellaneous Notes Orders signed Mindy Pandya PA-C Pt notified and verbalizes understanding. WILIAM/: BMP orders for Friday pended. Please review and sign. Thanks! Denita Rai RN ----- Message from Pito Grigsby MD sent at 11/12/2021 12:07 PM EDT ----- Please inform the patient that his kidney function worsened, most likely a side effect of the chemo. He should come in today and tomorrow for IV fluids. Check labs again on 11/14. documented in this encounter [facility] 11-09-2021 Miscellaneous Notes CYCLE 1/DAY 1 POST TREATMENT CALL Today's date: November 09, 2021 Treatment Regimen: Pemetrexed & Cisplatin [id number] Date: 11/05/21 Called patient to follow-up on symptom management. Spoke with patient. SYMPTOM ASSESSMENT Neuro: Headache yesterday. Resolved w/o intervention. CV/Resp: Shortness of breath w/ activity. No more than normal. and Cough: Yes; moist, productive clear sputum and occasional GI/: Appetite: decreased appetite, Taste changes Yes. Notes metallic taste when drinking milk, Nausea Yes, all week. Pt has not taken his oral antiemetics. Strongly advised pt to take a dose of Zofran now and continue q 8 hours w/ compazine in between for breakthrough nausea. No vomiting. , Fluid intake: Pt states, I drink all day . Fluids consist of mostly milk and water, Constipation: yes, last BM 1-2 days ago. Has mild laxative at home that he takes as needed. and Bladder/Urinary Changes: Increased output Integument: None Activity: Patient reported decreased energy level Do you need to take naps? Yes; Do you wake up feeling rested? Yes Pt notes that he was sleeping more earlier in the week. Pain: No=0 (pain 0 on a scale of 0-10). Fever: No Chills: Yes. This is not new for pt. States, I'm always cold. Pt confirms that he is taking his folic acid as prescribed. Any new referrals needed? No Reinforced CURRENT treatment education based on current and anticipated symptoms. Discussed port/line care and patient verbalizes understanding: Not Applicable Patient instructed to contact office or after hours Hematology/Oncology fellow for: temperature ? 100.4; questions or concerns. Patient verbalized understanding of when to seek medical attention and after hours number protocol. Denita Rai RN documented in this encounter [facility] 11-05-2021 History of Present illness Narrative PATIENT NAME: Pedro Gu DATE: 11/05/2021 (Elements copied from Dr. Pito Grigsby's note dated 10/22/2021, have been reviewed and updated where appropriate, and all reflect current assessment and medical decision making during today's encounter, November 05, 2021) PRIMARY CARE PHYSICIAN: Dr. Christina Azul OTHER PHYSICIANS: Dr. Verito Whelan, Dr. Marianne Fields CC: This is a 66 year old male with recently diagnosed lung caner here to start treatment. INTERIM HISTORY: Crystalruchi Gu returns for follow-up and to begin treatment with cisplatin and pemetrexed. Overall, he is doing fairly well today. He denies any unusual pain. He states that as long as he breathes through his nose his breathing is okay. He notices when he breathes through his mouth he has some shortness of breath. He has no new issues, problems or concerns today. He is ready to proceed with treatment as planned. MEDICATIONS: Current Outpatient Medications Medication Sig folic acid 1 mg tablet Take 1 tablet by mouth once daily. ondansetron (ZOFRAN) 8 mg tablet Take 1 tablet by mouth every 8 hours as needed for nausea/vomiting. prochlorperazine (COMPAZINE) 10 mg tablet Take 1 tablet by mouth every 6 hours as needed. cilostazol (PLETAL) 100 mg tablet Take 1 tablet by mouth twice daily. clopidogrel (PLAVIX) 75 mg tablet Take 1 tablet by mouth once daily. aspirin 81 mg chewable tablet Take 81 mg by mouth once daily. isosorbide dinitrate (ISORDIL) 10 mg tablet TAKE 1 TABLET BY MOUTH EVERY MORNING and TAKE 1 TABLET BY MOUTH EVERY afternoon tiotropium-olodaterol (STIOLTO RESPIMAT) 2.5-2.5 mcg/actuation Inhale 2 Puffs as instructed once daily. albuterol HFA (PROVENTIL HFA, VENTOLIN HFA) 90 mcg/actuation inhaler albuterol sulfate HFA 90 mcg/actuation aerosol inhaler INHALE 2 PUFFS BY MOUTH EVERY 4 HOURS NEEDED for SHORTNESS OF BREATH atorvastatin (LIPITOR) 40 mg tablet Take 40 mg by mouth once daily. metoprolol tartrate, short acting, (LOPRESSOR) 25 mg tablet Take 25 mg by mouth once daily. No current facility-administered medications for this visit. ALLERGIES: ALLERGIES No Known Allergies PAST MEDICAL HISTORY: PAST MEDICAL HISTORY Diagnosis Date Carotid artery disease (HCC) bilateral COPD (chronic obstructive pulmonary disease) (HCC) Heart attack (HCC) History of non-ST elevation myocardial infarction (NSTEMI) HTN (hypertension) Hypertension 09/25/2021 Lung cancer (HCC) Malignant neoplasm of lower lobe of left lung (HCC) Peripheral arterial disease (HCC) 2019 R REGISTRATION COORDINATOR stent PAST SURGICAL HISTORY: PAST SURGICAL HISTORY Procedure Laterality Date BACK SURGERY HX 2019 CABG (4) VEIN GRAFTS & ARTERIAL GRAFT(S) 2016 LOWER EXTREMITY FUNNEL SETTER W/WO STENT Right 2019 right common femoral artery stent REMOVAL OF LUNG,LOBECTOMY Left 09/26/2021 VATS left upper lung wedge resection, completion lobectomy, lymph node dissection, application of Progel to staple line, intercostal nerve blocks for cancer FAMILY HISTORY: FAMILY HISTORY Problem Relation Age of Onset Lung Cancer Father Heart Attack Father Coronary Artery Disease Father SOCIAL HISTORY: Social History Tobacco Use Smoking status: Former Smoker Packs/day: 2.00 Years: 50.00 Pack years: 100.00 Types: Cigarettes Start date: 1970 Smokeless tobacco: Never Used Tobacco comment: was smoking on and off fully quit 09/14/21 Substance Use Topics Alcohol use: Yes Alcohol/week: 30.0 standard drinks Types: 30 Cans of Beer (12oz) per week Comment: 4-9 beers per day Drug use: Never REVIEW OF SYSTEMS: General: No weight loss, malaise or fevers. HEENT: Negative for frequent or significant headaches. No changes in hearing or vision, no nose bleeds or other nasal problems Respiratory: Negative for cough, wheezing or shortness of breath. Cardiovascular: Negative for chest pain, leg swelling or palpitations. GI: Negative for abdominal discomfort, blood in stools or black stools or change in bowel habits. : No history of dysuria, frequency or incontinence. Musculoskeletal: Negative for: joint pain or swelling, back pain and muscle pain. Skin: Negative for lesions, rash and itching. Hematology/Lymphology: Negative for prolonged bleeding, bruising easily or swollen nodes. Neuro: No history of headaches, syncope, paralysis, seizures or tremors. PHYSICAL EXAM: BP 115/66 Pulse 93 Temp 36.3 C (97.3 F) (Temporal) Resp 16 Ht 168.8 cm (5' 6.46 ) Wt 58.6 kg (129 lb 3.2 oz) SpO2 98% BMI 20.57 kg/m ECOG 0 Exam limited to gross visualization where appropriate due to COVID-19. Gen.: This is an age-appropriate patient in no acute distress. Head: Appears atraumatic with no visible lesions. Eyes: Pupils equally round and reactive to light, extraocular muscles are intact. Neck: Supple. Mouth: Masked. Respiratory: Appears to be respiring comfortably. Neurologic: Nonfocal to gross visualization. Alert and oriented 3. Psychiatric: No evidence of inappropriate anxiety or depression. Skin: Visible areas of skin without rash, lesions, wounds or petechiae. PATHOLOGY: 09/26/2021 Left upper lobectomy and mediastinal lymphadenectomy. FINAL DIAGNOSIS A, H. 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 - Visceral pleural invasion present. - Tumor invades into parietal pleural/chest wall adipose tissue. - Arterial invasion present. - Five hilar/peribronchial lymph nodes, negative for tumor (0/5). - Emphysema with patchy smoking-related interstitial fibrosis. - Margins negative. B. Lymph node, level 10L, excision: - Negative for tumor (0/1). C. Lymph node, level 5, excision: - Negative for tumor (0/1). D. Lymph node, level 6, excision: - Negative for tumor (0/1). E. Lymph node, level 11L, excision: - Negative for tumor (0/1). F. Lymph node, level 12L, excision: - Negative for tumor (0/1). G. Lymph node, level 11L #2, excision: - Negative for tumor (0/1). I. Lymph node, level 11L #3, excision: - Negative for tumor (0/1). J. Lymph node, level 9L, excision: - Benign fibroadipose tissue, negative for tumor. Molecular markers: RET rearrangement negative, ROS1 negative, BRAF negative, EGFR negative, HER-2 negative, KRAS c34G>T positive, ALK 1 negative, PD-L1 95% LABS: Hemoglobin (g/dL) Date Value 11/05/2021 12.9 07/03/2021 14.2 Hematocrit (%) Date Value 11/05/2021 39.1 07/03/2021 41.8 WBC (k/uL) Date Value 11/05/2021 5.24 07/03/2021 5.83 Platelet Count (k/uL) Date Value 11/05/2021 305 07/03/2021 265 RADIOLOGY/OTHER STUDIES: 10/31/2021 Brain MRI IMPRESSION: No evidence of an acute intracranial process. No intracranial enhancing lesion to suggest metastasis. 09/25/2021 CT chest IMPRESSION: Increased peripheral left upper lobe mass with adjacent curvilinear scarlike opacity concerning for neoplasm. No other acute thoracic disease. 07/11/2021 CT neck IMPRESSION: ASYMMETRIC HIGH DENSITY WITH ILL-DEFINED MARGINS INVOLVING THE ANTERIOR ASPECT OF THE RIGHT PALATINE TONSIL WITHOUT ASSOCIATED NODULARITY. THIS IS A NONSPECIFIC FINDING AND MAY REFLECT HYPEREMIA FROM TONSILLITIS. THIS CORRESPONDS TO THE LOCATION OF FDG ACTIVITY ON THE PRIOR PET/CT EXAM. INTERVAL FOLLOW-UP IMAGING AND/OR DIRECT VISUALIZATION MAY BE OF BENEFIT TO EXCLUDE UNDERLYING SUBTLE MASS. MODERATE DEGENERATIVE CHANGES INVOLVING THE CERVICAL SPINE. MODERATE ATHEROSCLEROSIS AT THE CAROTID BIFURCATIONS. PARANASAL SINUS MUCOSAL THICKENING/SECRETIONS, DESCRIBED ABOVE. SMALL MILLIMETRIC LYMPH NODES SEEN AT SOME NECK LEVELS, NONE SIGNIFICANTLY ENLARGED BY IMAGING SIZE CRITERIA. IMPRESSION: ASYMMETRIC HIGH DENSITY WITH ILL-DEFINED MARGINS INVOLVING THE ANTERIOR ASPECT OF THE RIGHT PALATINE TONSIL WITHOUT ASSOCIATED NODULARITY. THIS IS A NONSPECIFIC FINDING AND MAY REFLECT HYPEREMIA FROM TONSILLITIS. THIS CORRESPONDS TO THE LOCATION OF FDG ACTIVITY ON THE PRIOR PET/CT EXAM. INTERVAL FOLLOW-UP IMAGING AND/OR DIRECT VISUALIZATION MAY BE OF BENEFIT TO EXCLUDE UNDERLYING SUBTLE MASS. MODERATE DEGENERATIVE CHANGES INVOLVING THE CERVICAL SPINE. MODERATE ATHEROSCLEROSIS AT THE CAROTID BIFURCATIONS. PARANASAL SINUS MUCOSAL THICKENING/SECRETIONS, DESCRIBED ABOVE. SMALL MILLIMETRIC LYMPH NODES SEEN AT SOME NECK LEVELS, NONE SIGNIFICANTLY ENLARGED BY IMAGING SIZE CRITERIA. CT neck 05/28/2021 PET scan IMPRESSION: 1. NECK: * FDG avid soft tissue mass in the right tonsil region could represent tonsillitis versus neoplastic process. Correlate with ENT exam. 2. CHEST: * Enlarging left upper lobe nodule measuring 2.7 x 1.8 cm with max SUV of 4.8 suspicious for neoplasm. No mediastinal or hilar lymphadenopathy. 3. ABDOMEN/PELVIS: * No FDG avid neoplastic process. . 4. EXTREMITIES/SKELETON: * No suspicious FDG avid osseous lesion. ASSESSMENT/PLAN: 1. 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 The patient presented with a slowly increasing left upper lobe mass, initially noted on screening chest CT in October 2020. Status post left upper lobectomy and mediastinal lymphadenectomy 09/26/2021. The primary tumor involved the visceral and parietal pleura with evidence of invasion into the chest wall adipose tissue. Surgical margins negative. Currently the patient is stable and asymptomatic. Options for management were discussed. Pleomorphic lung cancer tends to be aggressive, therefore the patient is at risk for systemic as well as local recurrence. Standard of care would be adjuvant chemotherapy with a false pass doublet followed by adjuvant radiation therapy. 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 The patient would be eligible for our current alchemist protocol enrolling patients with resected non-small cell for analysis, followed by a second enrollment based on specific mutations -in this case the elevated PD-L1. He would then be randomized to adjuvant chemotherapy alone, adjuvant chemotherapy followed by immunotherapy, versus adjuvant chemotherapy/immunotherapy followed by continuation of immunotherapy. Adjuvant radiation would be incorporated in the protocol. The patient has elected to not enroll in the protocol. Therefore, we will treat with standard chemotherapy consisting of cisplatin plus pemetrexed x4 cycles. We will refer to radiation oncology to discuss the role of adjuvant radiation. The patient subsequently will receive adjuvant immunotherapy. The risks, benefits and side effects were discussed at length with the patient. Consent was obtained. Will proceed with cycle 1 cisplatin and pemetrexed. We will see him back in 7-10 days for follow up and labs. 2. Centrilobular emphysema (HCC) - ICD9: 492.8, ICD10: J43.2 Long history of tobacco abuse, quit September 2021. Chronic shortness of breath and cough stable on current medications. Continue management per pulmonary/PCP. 3. Coronary artery disease Status post AMI 2015. Status post CABG x 4 in [place] 2015. Currently stable. Continue management per PCP/cardiology. 4. Peripheral vascular disease Status post balloon angioplasty right lower leg 2019. On long-term antiplatelet agents with Plavix and Pletal. Continue management per PCP/vascular surgery. 5. Abnormal right tonsil on PET scan (05/28/2021) and neck CT (07/11/2021). Radiographic abnormalities identified on baseline PET scan and neck CT. The patient was seen by [facility] on 07/26/2021. Clinical evaluation most consistent with inflammatory/post-infectious findings. No suspicion for malignancy. The patient apparently chews tobacco, and was advised to discontinue. Follow-up with ENT as indicated. Brent Miller APRN.RONAL documented in this encounter [facility] 10-31-2021 History of Present illness Narrative Radiology Service Progress Note DATE OF SERVICE: October 31, 2021 TIME: 1:55 PM PATIENT WEIGHT: 129LBS PATIENT IDENTITY VERIFICATION COMPLETED USING TWO (2) STANDARD IDENTIFIERS: Name and Date of confirmed by patient verbally. FALL SCREENING: Has the patient had 2 falls in the last year or 1 fall with injury or currently using an Ambulatory Assistive Device (Walker, Cane, Wheelchair, Crutches, etc.)? No PATIENT GENDER DATA: Male ALLERGIES: Reviewed and unchanged CONTRAST ALLERGY: No EXAM: MRI - CONTRAST TYPE: GROUP II IV SITE: Ambulatory: A peripheral IV was started in the Right forearm with an Angio cath: 22 gauge. A Saline lock was inserted per protocol. IV SITE APPEARANCE: Clean,Dry and Intact SIGNATURE: Jacklyn Rios RN PATIENT NAME: Pedro Gu DATE: October 31, 2021 TIME: 2:07 PM Radiology Service Progress Note PATIENT NAME: Pedro Gu DATE OF SERVICE: October 31, 2021 TIME: 2:46 PM PATIENT IDENTITY VERIFICATION COMPLETED USING TWO (2) IDENTIFIERS: Name and Date of confirmed by patient verbally. FALL SCREENING: Has the patient had 2 falls in the last year or 1 fall with injury or currently using an Ambulatory Assistive Device (Walker, Cane, Wheelchair, Crutches, etc.)? No PATIENT GENDER DATA: PATIENT RELEVANT IMPLANT DATA REVIEWED: Yes, omnilink r iliac stent 03/30/2019 outside hospital RADIOLOGY DEPARTMENT: MR; Exam(s) Completed: Head: Routine Brain 13cc dotarem existing r forearm iv, Erica Rios RN PERIPHERAL IV DATA: Site assessment: Clean,Dry and Intact, Site disposition Discontinued Iwona Cassidy A.A.S.,RT (R) (CT)(MR) October 31, 2021 2:46 PM documented in this encounter [facility] 10-30-2021 Miscellaneous Notes Spoke w/ Jaz regarding pt's MRI. Informed her that the pt is currently scheduled to have this done @ [facility] in [place]. No need to schedule w/ [facility] at this time. Informed her that the pt is aware of his [place] appointment. Denita Rai RN 3rd attempt made to contact [facility] @ [facility] Scheduling. No answer. Message left requesting call back. Denita Rai RN 2nd attempt made to contact Jaz @ [facility]. No answer. Message left requesting call back. Denita Rai RN Voicemail message received from [facility] requesting to speak w/ a nurse regarding pt's MRI. Call placed to number provided. No answer. Message left requesting call back. Denita Rai RN documented in this encounter [facility] 10-30-2021 Miscellaneous Notes FYI: Pt does not wish to enroll in a trial at this time. Denita Rai RN documented in this encounter [facility] 10-29-2021 Miscellaneous Notes The following approved medication requests have been transmitted electronically. Signed Prescriptions Disp Refills folic acid 1 mg tablet 90 tablet 1 Sig: Take 1 tablet by mouth once daily. Authorizing Provider: BRENT MILLER APRN.RN DERMATOLOGY Script for folic acid pended. Please review and approve. Thanks! Denita Rai RN documented in this encounter [facility] 10-29-2021 History of Present illness Narrative Admitting Representative Pre Chemo Patient identified by name and date of . YES Confirmed date and time for chemotherapy ? YES Other appointments (labs, imaging) discussed? YES Discussed where to park ([employer]), charge for parking NO Discussed where to report (building/floor) YES Any pre-medications ordered? YES Described the infusion room and what to expect. (What to wear, what to bring [iPad, books] amount of time treatment can take, meals and CC options for food) YES Note: Pt declined offer for tour of treatment room. Discussed whether the patient can eat prior to labs and treatment. YES Who is driving you to and from treatment? TBD Discussed why it is important to bring someone with you. Yes, Resources discussed (music therapy, Art therapy, pet therapy, etc.) YES Education on chemotherapy (drug, side effects) discussed and that the patient will be receiving a C1D1 call within 7 days of treatment. YES Other topics discussed, interventions needed: JC Rai RN ONCOLOGY PATIENT EDUCATION NOTE TOPIC: Chemotherapy, Medications: Cisplatin, Pemetrexed READINESS TO LEARN: COGNITIVE ABILITY: Alert and oriented MOTIVATION TO LEARN: Interested FAMILY SUPPORT: Unable to assess - Family not present INSTRUCTION PROVIDED TO: Patient INSTRUCTION PROVIDED BY: Nurse Coordinator and Pharmacist PATIENT LEARNS BEST BY: Multiple Methods FACTORS AFFECTING LEARNING: None PHYSICAL LIMITATIONS AFFECTING LEARNING: None LEARNING RESPONSE DIAGNOSIS: Lung Cancer METHOD OF INSTRUCTION: Individual instruction Written instruction - handouts Verbal instruction PATIENT/FAMILY RESPONSE: Verbalizes understanding of: CHEMOTHERAPY-Regimen, toxicity and side effects INFECTION MANAGEMENT-Signs and symptoms of an infection and importance of contacting the physician SYMPTOM MANAGEMENT-Correct actions to take to manage symptoms associated with his/her disease/illness WORSENING CONDITION-Signs and symptoms of a worsening condition that warrant a call to the physician Information received as demonstrated by interest and questions FOLLOW UP PLAN: Patient instructed to call with any further issues Contact information given. SUPPLEMENTAL MATERIAL: Written material was provided at this visit with the following information: - Chemotherapy education was provided by a pharmacist YES - Side effect management information was provided/discussed including but not limited to: anemia, appetite changes, bowel habit changes, diet, electrolyte disturbances, fatigue, hair loss, hearing impairment, infection, kidney toxicity, mouth hygiene, mucositis, nausea/vomitting, neutropenia, peripheral neuropathy, rash, skin changes, taste changes, thrombocytopenia YES - Provided important phone numbers and contacts during and after hours. YES - Provided information on symptoms that require immediate assistance. YES - Provided Chemotherapy when to call handouts YES - Preventing infection. YES - Treatment schedule and confirmation of appointment times. YES - Available support groups. NA - The importance of contraception during the course of chemotherapy YES - Prescriptions for anti-emetics or treatment prep was given: Compazine, Zofran, and Folic Acid. YES - A tour was given of the infusion suite with directions for the first day. Pt declined. - Neutropenic fever protocol discussed with patient, which included the importance of reporting any fever of 100.4F (38.0C) or greater to the healthcare team as noted on the provided wallet card and/or magnet. YES - 4th Darren Information. YES - Patient services information. YES *B12 administered at today's appointment. Time Spent: 43 minutes REFERRAL (RECOMMENDATION): N/A Denita Rai RN documented in this encounter [facility] 10-29-2021 History of Present illness Narrative Images from the original note were not included. [facility] Department of Pharmacy Oncology Pharmacy Medication Education Patient Name: Pedro Gu Primary Oncologist: Dr. Grigsby Diagnosis: Malignant neoplasm of upper lobe of left lung Pedro Gu is a 66 year old patient here today for medication education for IV CISPLATIN and PEMETREXED . Drug Interactions: Clinically significant interactions with chemotherapy, immunosuppression, or other standard of care treatment plan medications anticipated: No. There are no pertinent drug interactions identified. Patient was counseled accordingly. Allergies: Patient confirmed allergies documented in Epic are correct: Yes Was medication education provided?: Yes by Nurse Coordinator, Denita Rai Was medication reconciliation performed?: Yes Changes made to medication list? Yes The following medications were updated within the home medication list: Medications DISCONTINUED from home medication list: Imdur ER 30 mg Folic Acid to be prescribed Current Outpatient Medications Medication Sig ondansetron (ZOFRAN) 8 mg tablet Take 1 tablet by mouth every 8 hours as needed for nausea/vomiting. prochlorperazine (COMPAZINE) 10 mg tablet Take 1 tablet by mouth every 6 hours as needed. cilostazol (PLETAL) 100 mg tablet Take 1 tablet by mouth twice daily. clopidogrel (PLAVIX) 75 mg tablet Take 1 tablet by mouth once daily. aspirin 81 mg chewable tablet Take 81 mg by mouth once daily. isosorbide dinitrate (ISORDIL) 10 mg tablet TAKE 1 TABLET BY MOUTH EVERY MORNING and TAKE 1 TABLET BY MOUTH EVERY afternoon tiotropium-olodaterol (STIOLTO RESPIMAT) 2.5-2.5 mcg/actuation Inhale 2 Puffs as instructed once daily. albuterol HFA (PROVENTIL HFA, VENTOLIN HFA) 90 mcg/actuation inhaler albuterol sulfate HFA 90 mcg/actuation aerosol inhaler INHALE 2 PUFFS BY MOUTH EVERY 4 HOURS NEEDED for SHORTNESS OF BREATH atorvastatin (LIPITOR) 40 mg tablet atorvastatin 40 mg tablet isosorbide mononitrate ER (IMDUR) 30 mg 24 hr tablet Take 30 mg by mouth once daily. metoprolol tartrate, short acting, (LOPRESSOR) 25 mg tablet metoprolol tartrate 25 mg tablet No current facility-administered medications for this visit. METHOD OF INSTRUCTION: Individual instruction PATIENT/FAMILY RESPONSE: Verbalizes understanding of: CHEMOTHERAPY-Regimen, toxicity and side effects FOLLOW UP PLAN: Contact information given. SUPPLEMENTAL MATERIAL: Written material was provided at this visit with the following information - Chemotherapy education was provided by a pharmacist NO Thank you for allowing us to participate in the care of this patient. I spent 15 time (15 minute increments) with the patient Katlin Omer RPh documented in this encounter [facility] 10-26-2021 Miscellaneous Notes Added to schedule Pt did not show for yesterday's education appointment. Spoke w/ pt who notes he forgot. Clerical: Pt will be in on Friday, 10/29 @ 10 AM for education. Please add him to my schedule. Thanks! Denita Rai RN documented in this encounter [facility] 10-25-2021 Miscellaneous Notes Scripts for antiemetics and folic acid pended. Please review and approve. Thanks, Denita Rai RN documented in this encounter [facility] 10-24-2021 History of Present illness Narrative Radiation Oncology - New Patient/Consult Note PATIENT NAME: Pedro Gu PATIENT REQUESTING PROVIDER: Dr. Grigsby DIAGNOSIS: 66 year old male with lung cancer, left upper lobe, pleomorphic carcinoma, stage IIb [id number], stage IIB AJCC 8th edition (chest wall invasion), PD-L1 95%, KRAS G12C mutation present HPI: 66 year old male who presents with above diagnosis, for an opinion regarding the role of radiation therapy in the management of the patient's disease. Final recommendations will be communicated back to the requesting physician by way of the shared medical record, or letter to requesting physician via US mail. Patient has history of COPD and longstanding prior history of smoking. He was found to have a suspicious nodule last year and screening CT lung. He underwent further serial staging and was found to have an increasing size of the left upper lobe lesion. He underwent PET scan 05/28/2021 demonstratin. NECK: * FDG avid soft tissue mass in the right tonsil region could represent tonsillitis versus neoplastic process. Correlate with ENT exam. 2. CHEST: * Enlarging left upper lobe nodule measuring 2.7 x 1.8 cm with max SUV of 4.8 suspicious for neoplasm. No mediastinal or hilar lymphadenopathy. 3. ABDOMEN/PELVIS: * No FDG avid neoplastic process. . 4. EXTREMITIES/SKELETON: * No suspicious FDG avid osseous lesion. Further work-up including ENT evaluation without remarkable oropharyngeal findings. On 09/26/2021 he underwent VATS with left upper lobe wedge resection followed by completion lobectomy and lymph node dissection. Pathology demonstrating: FINAL DIAGNOSIS A, H. 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 - Visceral pleural invasion present. - Tumor invades into parietal pleural/chest wall adipose tissue. - Arterial invasion present. - Five hilar/peribronchial lymph nodes, negative for tumor (0/5). - Emphysema with patchy smoking-related interstitial fibrosis. - Margins negative. B. Lymph node, level 10L, excision: - Negative for tumor (0/1). C. Lymph node, level 5, excision: - Negative for tumor (0/1). D. Lymph node, level 6, excision: - Negative for tumor (0/1). E. Lymph node, level 11L, excision: - Negative for tumor (0/1). F. Lymph node, level 12L, excision: - Negative for tumor (0/1). G. Lymph node, level 11L #2, excision: - Negative for tumor (0/1). I. Lymph node, level 11L #3, excision: - Negative for tumor (0/1). J. Lymph node, level 9L, excision: - Benign fibroadipose tissue, negative for tumor. Synoptic Report LUNG 8th Edition - Protocol posted: 2021 LUNG, RESECTION - A, H SPECIMEN Procedure Wedge resection Completion lobectomy Specimen Laterality Left TUMOR Tumor Focality Single focus Tumor Site Upper lobe of lung Tumor Size Total Tumor Size (size of entire tumor) Greatest Dimension (Centimeters): 2.2 cm Additional Dimension (Centimeters) 1.5 cm 1.5 cm Histologic Type Pleomorphic carcinoma Histologic Component(s) Present Large cell carcinoma: 80 Histologic Grade G3, poorly differentiated Spread Through Air Spaces (BABAR) Not identified Visceral Pleura Invasion Present Direct Invasion of Adjacent Structures Present Involved Adjacent Structures Parietal pleura Chest wall: Adipose tissue Treatment Effect No known presurgical therapy Lymphovascular Invasion Arterial invasion present MARGINS Margin Status for Invasive Carcinoma All margins negative for invasive carcinoma Closest Margin(s) to Invasive Carcinoma Bronchial Vascular Parenchymal Chest wall margin negative Distance from Invasive Carcinoma to Closest Margin Cannot be determined: prior wedge resection Margin Status for Non-Invasive Tumor Not applicable REGIONAL LYMPH NODES Lymph Node(s) from Prior Procedures No known prior lymph node sampling performed Regional Lymph Node Status All regional lymph nodes negative for tumor Number of Lymph Nodes Examined 12 [place] Site(s) Examined 5: Subaortic / aortopulmonary (AP) / AP window 6: Para-aortic (ascending aorta or phrenic) 9L: Pulmonary ligament 10L: Hilar 11L: Interlobar 12L: Lobar Left: Hilar/peribronchial PATHOLOGIC STAGE CLASSIFICATION (pTNM, AJCC 8th Edition) The suffix m (or a specific number) should only be used in the setting of multifocal ground-glass / lepidic nodules that histologically present as adenocarcinomas with prominent lepidic component or multifocal tumors of same histologic type that are too numerous for individual separate synoptic report and that are not better classified as intrapulmonary metastases (e.g. numerous carcinoid tumors). Multiple primary lung cancers showing different histologic type or different morphology based on comprehensive histologic subtyping are better staged as independent tumors without m suffix. pT Category pT3 pN Category pN0 Patient has done well since surgery. No significant chest pain or other issues. He is here today to discuss potential postsurgical adjuvant treatments. Focused ROS: Fatigue: mild Weight loss: None Appetite: good Nausea: no Shortness of breath: Mild Cough: No Hemoptysis: No Dysphagia: No Pain with swallowing: No ALLERGIES No Known Allergies MEDICATIONS: cilostazol (PLETAL) 100 mg tablet Take 1 tablet by mouth twice daily. clopidogrel (PLAVIX) 75 mg tablet Take 1 tablet by mouth once daily. aspirin 81 mg chewable tablet Take 81 mg by mouth once daily. isosorbide dinitrate (ISORDIL) 10 mg tablet TAKE 1 TABLET BY MOUTH EVERY MORNING and TAKE 1 TABLET BY MOUTH EVERY afternoon tiotropium-olodaterol (STIOLTO RESPIMAT) 2.5-2.5 mcg/actuation Inhale 2 Puffs as instructed once daily. albuterol HFA (PROVENTIL HFA, VENTOLIN HFA) 90 mcg/actuation inhaler albuterol sulfate HFA 90 mcg/actuation aerosol inhaler INHALE 2 PUFFS BY MOUTH EVERY 4 HOURS NEEDED for SHORTNESS OF BREATH atorvastatin (LIPITOR) 40 mg tablet Take 40 mg by mouth once daily. metoprolol tartrate, short acting, (LOPRESSOR) 25 mg tablet Take 25 mg by mouth once daily. folic acid 1 mg tablet Take 1 tablet by mouth once daily. ondansetron (ZOFRAN) 8 mg tablet Take 1 tablet by mouth every 8 hours as needed for nausea/vomiting. prochlorperazine (COMPAZINE) 10 mg tablet Take 1 tablet by mouth every 6 hours as needed. PAST MEDICAL HISTORY Diagnosis Date Carotid artery disease (HCC) bilateral COPD (chronic obstructive pulmonary disease) (HCC) Heart attack (HCC) History of non-ST elevation myocardial infarction (NSTEMI) HTN (hypertension) Hypertension 09/25/2021 Lung cancer (HCC) Malignant neoplasm of lower lobe of left lung (HCC) Peripheral arterial disease (HCC) 2019 R REGISTRATION COORDINATOR stent Prior radiation therapy, collagen vascular disease, or inflammatory bowel disease: No PAST SURGICAL HISTORY Procedure Laterality Date BACK SURGERY HX 2019 CABG (4) VEIN GRAFTS & ARTERIAL GRAFT(S) 2016 LOWER EXTREMITY FUNNEL SETTER W/WO STENT Right 2019 right common femoral artery stent REMOVAL OF LUNG,LOBECTOMY Left 09/26/2021 VATS left upper lung wedge resection, completion lobectomy, lymph node dissection, application of Progel to staple line, intercostal nerve blocks for cancer FAMILY HISTORY Problem Relation Age of Onset Lung Cancer Father Heart Attack Father Coronary Artery Disease Father Social History Tobacco Use Smoking status: Former Smoker Packs/day: 2.00 Years: 50.00 Pack years: 100.00 Types: Cigarettes Start date: 1970 Smokeless tobacco: Never Used Tobacco comment: was smoking on and off fully quit 09/14/21 Substance Use Topics Alcohol use: Yes Alcohol/week: 30.0 standard drinks Types: 30 Cans of Beer (12oz) per week Comment: 4-9 beers per day Drug use: Never COMPLETE REVIEW OF SYSTEMS: GENERAL: feeling well without fatigue, no recent change in weight NECK: denies swelling or pain in neck GI: normal appetite, tolerating PO well, BMs normal and no abdominal pain : urination is normal MUSCULOSKELETAL: denies any painful or swollen joints, no muscle aches SKIN: no rash NEURO: no numbness or paresthesias and no weakness of the extremities As noted in HPI PHYSICAL EXAM: VS: BP 111/67 Pulse 101 Temp 36.3 C (97.4 F) Resp 16 Wt 58.5 kg (129 lb) SpO2 98% BMI 20.54 kg/m KPS: 100 General Appearance: Alert and oriented. No acute distress. HEENT: NCAT. Sclera anicteric. PERRL. EOMI. Neck: Normal ROM. No palpable cervical or supraclavicular adenopathy. Chest: No respiratory distress. Lungs clear to auscultation bilaterally, well-healing left thoracotomy incision no open areas no drainage. Heart: Regular rate and rhythm. Abdomen: Soft. Nontender. Nondistended. Musculoskeletal: No edema. Normal ROM in extremities. No bone or spine tenderness. Neuro: Speech fluent. Gait normal. No focal deficits. Skin: No rashes noted Lymphatics: No palpable lymphadenopathy. Hematologic: No signs of active bleeding. RADIOLOGY/LABORATORY DATA: see HPI ASSESSMENT AND PLAN: Lung cancer, left upper lobe, pleomorphic carcinoma, stage IIb [id number], stage IIB AJCC 8th edition (chest wall invasion), PD-L1 95%, KRAS G12C mutation present Patient seems to doing very well after his resection. He achieved resection with negative margins however I am concerned to to the histology as well has evidence of adipose/chest wall invasion that was seen, and feel this may increase his risk for recurrence Locally. I do feel there may be a role for radiation to the local area/tumor bed region. Would plan to coordinate with systemic chemotherapy likely in a sequential manner. Given that he is node negative with limited volumes to the area of chest wall involvement which would also limit potential toxicity from added treatment. Discussed role of radiation with patient at length. Discussed with Dr. Grigsby. We will plan to have her back for follow-up after his initial chemotherapy. Signed by: Jyoti Limon MD cc: Christina Azul [address] [place] [address] Pito Grigsby ([facility]) [address] [place] [address] [place] [id number] documented in this encounter [facility] 10-22-2021 Miscellaneous Notes Returned call to Mr Gu and identified self by name and title. Pedro explained that he had received a call from his [employer] who questioned the location of his upcoming MRI. Pedro was a bit confused after the call and wanted to confirm that our office did not have any concerns regarding completing his MRI at [facility]. I assured Pedro that his insurance has authorized the imaging and it may be completed at any [facility] location. He was scheduled for first available, and voiced comfort with driving to [place]. No additional questions at this time. Raine METZ, RN Specialty Admitting Representative Pedro Gu is calling Renetta Ponce MD today regarding Care Coordination, calling to discuss going to another hospital for his MRI. Patient has been identified by name and birthdate. Duration of symptoms: N/A Requesting response back: call on cell [phone] (home) [phone] (cell) Mary Alice SAMANIEGO October 19, 2021 documented in this encounter [facility] 10-19-2021 History of Present illness Narrative Images from the original note were not included. [facility] NEW PATIENT VISIT Department of Hematology and Medical Oncology PATIENT NAME: Pedro Gu CLINIC NO.: [id number] DATE OF SERVICE: 10/19/2021 PCP: Christina Azul MD REFERRING PROVIDER: Marianne Fields MD. DIAGNOSIS: Pleomorphic carcinoma of the DARCIE STAGE: [id number], stage IIB AJCC 8th edition (chest wall invasion) BIOMARKERS: PD-L1 95%, KRAS G12C mutation present PRIOR THERAPY: 09/26/2021: 1. Left VATS exploration with DARCIE wedge 2. Left VATS upper lobectomy 3. Extensive adhesionlysis 4. Mediastinal lymphadenectomy 5. Intercostal nerve blocks 6. Tube thoracostomy CURRENT THERAPY: Here to discuss further management SPECIAL MEDICAL ISSUES: Alcohol use PALLIATIVE CARE PROVIDER: None CHIEF COMPLAINT: Lung cancer HISTORY OF PRESENT ILLNESS: Mr. Pedro Gu is a 66 year old male ex smoker with a 100 pack year smoking history and PMHx of HTN, COPD, carotid artery disease, PAD s/p stenting, NSTEMI s/p CABG in 2016 and alcohol use who presents to discuss adjuvant therapies after his recently resected pleomorphic carcinoma of the lung. Pedro Gu states that he was in his usual state of health and had a screening lung CT in 04/2020 which revealed a DARCIE lung nodule which was minimally avid on PET CT. He then had a follow up scan in 10/2020 and 01/2021 which showed further growth in the nodule, now measuring 2.7 cm. A biopsy at OSH was non diagnostic. He saw Dr. Fields from thoracic surgery and had a PET CT at [facility] which showed hypermetabolic uptake in the DARCIE mass but no evidence of abnormal uptake in lymph nodes or distant sites. He then underwent a VATS left upper lobectomy and MLND on 09/26/2021, final pathology revealed a 2.2 cn pleomorphic carcinoma invading the parietal pleura/ chest wall invasion, no evidence of lymph node involvement. He is here to discuss further management. Clinically, he has recovered well from surgery. His activity is mostly limited by peripheral arterial disease but states that he has not noticed any significant worsening of dyspnea on exertion since surgery. Minimal residual pain at this time. ROS is otherwise negative. He does drink 4-9 beers per day and has done so for many years. States that he has been able to quit in the past without assistance. PAST MEDICAL HISTORY: PAST MEDICAL HISTORY Diagnosis Date Carotid artery disease (HCC) bilateral COPD (chronic obstructive pulmonary disease) (HCC) Heart attack (HCC) History of non-ST elevation myocardial infarction (NSTEMI) HTN (hypertension) Hypertension 09/25/2021 Lung cancer (HCC) Malignant neoplasm of lower lobe of left lung (HCC) Peripheral arterial disease (HCC) 2019 R REGISTRATION COORDINATOR stent PAST SURGICAL HISTORY: PAST SURGICAL HISTORY Procedure Laterality Date BACK SURGERY HX 2019 CABG (4) VEIN GRAFTS & ARTERIAL GRAFT(S) 2016 LOWER EXTREMITY FUNNEL SETTER W/WO STENT Right 2019 right common femoral artery stent REMOVAL OF LUNG,LOBECTOMY Left 09/26/2021 VATS left upper lung wedge resection, completion lobectomy, lymph node dissection, application of Progel to staple line, intercostal nerve blocks for cancer MEDICATIONS: cilostazol (PLETAL) 100 mg tablet Take 1 tablet by mouth twice daily. clopidogrel (PLAVIX) 75 mg tablet Take 1 tablet by mouth once daily. aspirin 81 mg chewable tablet Take 81 mg by mouth once daily. isosorbide dinitrate (ISORDIL) 10 mg tablet TAKE 1 TABLET BY MOUTH EVERY MORNING and TAKE 1 TABLET BY MOUTH EVERY afternoon tiotropium-olodaterol (STIOLTO RESPIMAT) 2.5-2.5 mcg/actuation Inhale 2 Puffs as instructed once daily. albuterol HFA (PROVENTIL HFA, VENTOLIN HFA) 90 mcg/actuation inhaler albuterol sulfate HFA 90 mcg/actuation aerosol inhaler INHALE 2 PUFFS BY MOUTH EVERY 4 HOURS NEEDED for SHORTNESS OF BREATH atorvastatin (LIPITOR) 40 mg tablet atorvastatin 40 mg tablet isosorbide mononitrate ER (IMDUR) 30 mg 24 hr tablet Take 30 mg by mouth once daily. metoprolol tartrate, short acting, (LOPRESSOR) 25 mg tablet metoprolol tartrate 25 mg tablet ondansetron (ZOFRAN) 8 mg tablet Take 1 tablet by mouth every 8 hours as needed for nausea/vomiting. prochlorperazine (COMPAZINE) 10 mg tablet Take 1 tablet by mouth every 6 hours as needed. ALLERGIES: ALLERGIES No Known Allergies FAMILY HISTORY: FAMILY HISTORY Problem Relation Age of Onset Lung Cancer Father Heart Attack Father Coronary Artery Disease Father SOCIAL HISTORY: Social History Tobacco Use Smoking status: Former Smoker Packs/day: 2.00 Years: 50.00 Pack years: 100.00 Types: Cigarettes Start date: 1970 Smokeless tobacco: Never Used Tobacco comment: was smoking on and off fully quit 09/14/21 Substance Use Topics Alcohol use: Yes Alcohol/week: 30.0 standard drinks Types: 30 Cans of Beer (12oz) per week Comment: 4-9 beers per day Drug use: Never REVIEW OF SYSTEMS: As described above. All other systems were reviewed and were negative. PHYSICAL EXAMINATION: 10/19/21 0958 BP: 127/72 Pulse: 98 Resp: 20 Temp: 36.4 C (97.6 F) TempSrc: Temporal SpO2: 100% Weight: 58.3 kg (128 lb 9.6 oz) Height: 168.8 cm (5' 6.46 ) ECOG PERFORMANCE STATUS: 1- Restricted in physically strenuous activity. Carries out light duty. General Appearance: Well appearing, alert, in no acute distress, well-hydrated, well nourished. Skin: Well healing incision sites Head: normocephalic, no masses, lesions, tenderness or abnormalities Eyes: Anicteric sclera. Pupils are equally round and reactive to light. Neck: Supple, no adenopathy; thyroid symmetric, normal size. Back: no pain to palpation Respiratory: Lungs clear to auscultation. No wheezing, rhonchi, rales Heart: RRR without murmur, gallop, or rubs. No ectopy Abdomen: Abdomen soft, non-tender. Bowel sounds normal. No masses, organomegaly Extremeties: No deformities, edema, skin discoloration, clubbing or cyanosis. Good capillary refill. Muskuloskeletal: No joint swelling, deformity, or tenderness Peripheral Pulses: Capillary refill <2secs, strong peripheral pulses Neurologic: Negative findings: speech normal, mental status intact, muscle strength normal Lymph nodes No palpable lymph nodes DIAGNOSTIC STUDIES: LABS: Recent Labs 10/04/21 0421 10/03/21 0311 10/02/21 0442 10/01/21 0616 WBC 4.76 5.08 4.96 3.79 HB 10.5* 10.1* 10.9* 10.1* MCV 93.3 91.6 92.8 90.8 PLT 355 264 244 204 Recent Labs 10/04/21 0421 10/03/21 0311 10/02/21 0442 10/01/21 0616 09/25/21 1056 07/03/21 0957 07/03/21 0915 NA 138 135* 138 136 < > -- 136 K 4.2 4.0 4.0 3.8 < > -- 4.7 CHLOR 104 102 103 102 < > -- 100 CO2 26 24 24 22 < > -- 25 BUN 9 7* 6* 9 < > -- 11 CREAT 0.79 0.78 0.80 0.69* < > 0.80 0.85 0.86 ALB 3.4* 3.0* 3.4* 3.2* < > -- -- TPROT 6.5 6.0* 6.2* 5.8* < > -- -- CA 9.6 9.0 9.1 8.5 < > -- 9.9 MG -- -- 1.7 -- -- -- -- ALT 21 23 24 21 < > -- -- AST 25 28 33 33 < > -- -- TBILI 0.3 0.4 0.5 0.5 < > -- -- GLUC 109* 90 96 94 < > -- 95 EGFROTH 99 100 99 103 < > >60 >60 >60 EGFRAA -- -- -- -- -- >60 >60 >60 < > = values in this interval not displayed. Recent Labs 09/26/21 1821 09/25/21 1056 07/17/21 0644 APTT -- 27.3 -- PTSEC 10.6 10.5 10.0 INR 1.0 1.0 0.9 IMAGING: PET CT 05/28/2021 IMPRESSION: 1. NECK: * FDG avid soft tissue mass in the right tonsil region could represent tonsillitis versus neoplastic process. Correlate with ENT exam. 2. CHEST: * Enlarging left upper lobe nodule measuring 2.7 x 1.8 cm with max SUV of 4.8 suspicious for neoplasm. No mediastinal or hilar lymphadenopathy. 3. ABDOMEN/PELVIS: * No FDG avid neoplastic process. . 4. EXTREMITIES/SKELETON: * No suspicious FDG avid osseous lesion. PATHOLOGY: Lobectomy 09/26/2021 FINAL DIAGNOSIS A, H. 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 - Visceral pleural invasion present. - Tumor invades into parietal pleural/chest wall adipose tissue. - Arterial invasion present. - Five hilar/peribronchial lymph nodes, negative for tumor (0/5). - Emphysema with patchy smoking-related interstitial fibrosis. - Margins negative. B. Lymph node, level 10L, excision: - Negative for tumor (0/1). C. Lymph node, level 5, excision: - Negative for tumor (0/1). D. Lymph node, level 6, excision: - Negative for tumor (0/1). E. Lymph node, level 11L, excision: - Negative for tumor (0/1). F. Lymph node, level 12L, excision: - Negative for tumor (0/1). G. Lymph node, level 11L #2, excision: - Negative for tumor (0/1). I. Lymph node, level 11L #3, excision: - Negative for tumor (0/1). J. Lymph node, level 9L, excision: - Benign fibroadipose tissue, negative for tumor IMPRESSION AND PLAN: Mr. Pedro Gu is a 66 year old male ex smoker with a 100 pack year smoking history and PMHx of HTN, COPD, carotid artery disease, PAD s/p stenting, NSTEMI s/p CABG in 2016 and alcohol use who presents to discuss adjuvant therapies after his recently resected pleomorphic carcinoma of the lung. 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 We had a lengthy discussion regarding his diagnosis of stage IIB lung cancer and the evidence in support of adjuvant chemotherapy in this setting. He does not have any pre existing neuropathy, renal dysfunction or hearing loss. He does however drink alcohol on a daily basis, we discussed the importance of alcohol cessation to avoid increased risk of toxicities with chemotherapy. We also discussed the evidence in support of adjuvant immunotherapy for a year since his tumor has a high PD-L1 expression. He will need a MRI brain to rule out intracranial metastatic disease. He wishes to receive therapy closer to home at the [facility] location. I will place a referral for him to see oncology at that site. All questions and concerns have been addressed. Renetta Ponce MD, FACP Associate Staff [facility] [place] October 19, 2021 CC: Marianne Fields MD documented in this encounter [facility] 10-19-2021 Miscellaneous Notes Patient scheduled to see you on Friday01/22/22 for follow up treatment. Please add lab orders. Thanks, Virgie Dominguez MA documented in this encounter [facility] 10-19-2021 Miscellaneous Notes Patient coming in on 02/07/22 for follow up labs. Please add lab orders. Thanks, Virgie Dominguez MA documented in this encounter [facility] 10-19-2021 Nurse Note Additional intake questions: Has the patient had fever, nausea, vomiting, diarrhea, constipation, fatigue for > 1 week? No Does the patient have a decreased appetite? No Does patient want to see a Band Ripsaw Operator? No (yes to any of above refer patient to schedulers for dietitian appointment) ) Does patient have any new or increased numbness or tingling of extremities? No Is patient interested in fertility information? No Does patient need any prescription refills? No Does patient have an advanced directive in place? No, Patient referred to Resource Center Electronically Signed By: Denisse Brasher LPN documented in this encounter [facility] 10-11-2021 History of Present illness Narrative Images from the original note were not included. [facility] - OUTPATIENT THORACIC SURGERY CLINIC NOTE PT NAME: [facility] NO: [id number] THORACIC SURGEON: Dr Marianne Fields DATE OF SERVICE: October 11, 2021 PRINCIPAL DX: T3N0/stage IIB pleomorphic carcinoma of left upper lobe of lung SURGICAL HX: 09/26/2021: 1. Left VATS exploration with DARCIE wedge 2. Left VATS upper lobectomy 3. Extensive adhesionlysis 4. Mediastinal lymphadenectomy 5. Intercostal nerve blocks 6. Tube thoracostomy Surgical Pathology: FINAL DIAGNOSIS A, H. 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 - Visceral pleural invasion present. - Tumor invades into parietal pleural/chest wall adipose tissue. - Arterial invasion present. - Five hilar/peribronchial lymph nodes, negative for tumor (0/5). - Emphysema with patchy smoking-related interstitial fibrosis. - Margins negative. B. Lymph node, level 10L, excision: - Negative for tumor (0/1). C. Lymph node, level 5, excision: - Negative for tumor (0/1). D. Lymph node, level 6, excision: - Negative for tumor (0/1). E. Lymph node, level 11L, excision: - Negative for tumor (0/1). F. Lymph node, level 12L, excision: - Negative for tumor (0/1). G. Lymph node, level 11L #2, excision: - Negative for tumor (0/1). I. Lymph node, level 11L #3, excision: - Negative for tumor (0/1). J. Lymph node, level 9L, excision: - Benign fibroadipose tissue, negative for tumor. Diagnosis Comment A. In blocks A2 and A4, the neoplastic cells are positive for keratin AE1/AE3 (diffuse) and p40 (very focal) and negative for TTF-1. The combination of a keratin-positive carcinoma (large cell carcinoma) and a spindle cell component meets criteria for pleomorphic carcinoma. Movat pentachrome stains confirm the presence of pleural invasion. Laboratory Developed Test (LDT) Disclaimer: Positive and negative controls stain appropriately. Performance characteristics of immunohistochemical, immunofluorescent and chromogenic in-situ hybridization tests have been determined by [facility]'s [facility] Pathology and Laboratory Medicine [place] ([facility]) in a manner consistent with CLIA requirements. One or more of these tests have not been cleared or approved by the FDA. [facility] is regulated under CLIA as qualified to perform high-complexity testing. These tests are used for clinical purposes. They should not be regarded as investigational or for research. Synoptic Report LUNG 8th Edition - Protocol posted: 2021 LUNG, RESECTION - A, H SPECIMEN Procedure Wedge resection Completion lobectomy Specimen Laterality Left TUMOR Tumor Focality Single focus Tumor Site Upper lobe of lung Tumor Size Total Tumor Size (size of entire tumor) Greatest Dimension (Centimeters): 2.2 cm Additional Dimension (Centimeters) 1.5 cm 1.5 cm Histologic Type Pleomorphic carcinoma Histologic Component(s) Present Large cell carcinoma: 80 Histologic Grade G3, poorly differentiated Spread Through Air Spaces (BABAR) Not identified Visceral Pleura Invasion Present Direct Invasion of Adjacent Structures Present Involved Adjacent Structures Parietal pleura Chest wall: Adipose tissue Treatment Effect No known presurgical therapy Lymphovascular Invasion Arterial invasion present MARGINS Margin Status for Invasive Carcinoma All margins negative for invasive carcinoma Closest Margin(s) to Invasive Carcinoma Bronchial Vascular Parenchymal Chest wall margin negative Distance from Invasive Carcinoma to Closest Margin Cannot be determined: prior wedge resection Margin Status for Non-Invasive Tumor Not applicable REGIONAL LYMPH NODES Lymph Node(s) from Prior Procedures No known prior lymph node sampling performed Regional Lymph Node Status All regional lymph nodes negative for tumor Number of Lymph Nodes Examined 12 Ju[place] Site(s) Examined 5: Subaortic / aortopulmonary (AP) / AP window 6: Para-aortic (ascending aorta or phrenic) 9L: Pulmonary ligament 10L: Hilar 11L: Interlobar 12L: Lobar Left: Hilar/peribronchial PATHOLOGIC STAGE CLASSIFICATION (pTNM, AJCC 8th Edition) The suffix m (or a specific number) should only be used in the setting of multifocal ground-glass / lepidic nodules that histologically present as adenocarcinomas with prominent lepidic component or multifocal tumors of same histologic type that are too numerous for individual separate synoptic report and that are not better classified as intrapulmonary metastases (e.g. numerous carcinoid tumors). Multiple primary lung cancers showing different histologic type or different morphology based on comprehensive histologic subtyping are better staged as independent tumors without m suffix. pT Category pT3 pN Category pN0 ADDITIONAL FINDINGS Additional Findings Fibrosis: Smoking-related interstitial fibrosis Emphysema REASON FOR VISIT: First post-operative visit HPI: Pedro Gu is a 66 year old male recent ex smoker 50 pack years (quit 09/14/21) with COPD, CAD (s/p CABG x 4), PAD (s/p stent, on plavix, pletal) who was enrolled in lung cancer screening program, underwent low dose CT chest January 2021 and found to have a left upper lung nodule. PET scan 05/28/21 demonstrated interval growth of DARCIE nodule to 2.7 x 1.8cm which was FDG avid (SUV 4.8). No lymphadenopathy or other sites to suggest metastatic disease. Taken to OR 09/26/21, underwent VATS left upper lung wedge followed by completion lobectomy and lymph node dissection when frozen section revealed malignancy. Progel applied to entire staple line due to air leak. Chest tube sclerosed with doxycycline, removed prior to discharge. Discharged 10/04/21. PHYSICAL EXAM: VITAL SIGNS: BP 99/58 Pulse 85 Temp 37.1 C (98.7 F) (Oral) Ht 170.2 cm (5' 7 ) Wt 59 kg (130 lb) SpO2 98% BMI 20.36 kg/m Room air Incision location: Left Thoracoport sites and Left Old chest tube sites Incision Assessment: Well approximated and no drainage, swelling, erythema or warmth Drain/Tubes: N/A GENERAL: well appearing, alert, no acute distress, well-hydrated, well nourished HEENT: normocephalic, midline, anicteric sclera. LUNGS: clear to auscultation, no wheezing or rhonchi HEART: RRR without murmur ABDOMEN: Soft, non-tender, non distended. No masses EXTREMITIES: No clubbing, cyanosis or edema. MUSCULOSKELETAL: Muscular strength intact. SKIN: turgor normal, no suspicious rashes or lesions NEURO: Gait normal. Sensation grossly intact. IMAGING/TESTS: CXR 10/11/21: PENDING INTERVAL HISTORY: Pedro Gu returns for first post op visit. He has been doing well. He has had adequate pain management with the use of Oxycodone which he has only been taking at night. He denies any SOB, fevers, chills. No c/o nausea or vomiting. He has been able to stay from cigarettes. He has been tolerating diet and has been moving his bowels regularly. Incisions are healing well and sutures are removed. We have discussed increasing aerobic activity daily, as well as maintaining weight restriction of 5-10 lbs for the first month after surgery. We have also discussed no driving while on narcotics. CXR shows small left anterior pneumothorax which appears to be stable. Discussed continued us of his vibrapep. 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 Will arrange for an oncology consult to discuss survivorship planning He will return in 6 weeks with a CXR. 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 FALL SCREENING: Has the patient had 2 falls in the last year or 1 fall with injury or currently using an Ambulatory Assistive Device (Walker, Cane, Wheelchair, Crutches, etc.)? No PATIENT GENDER DATA: Male PATIENT RELEVANT IMPLANT DATA REVIEWED: Not Applicable RADIOLOGY DEPARTMENT: General X-ray: Exam(s) Completed: Chest X-Ray PERIPHERAL IV DATA: Not applicable SIGNED BY: RT Anabel(Marcella) October 11, 2021 3:11 PM documented in this encounter [facility] 05-28-2021 Procedure note RADIOLOGY SERVICE PROGRESS NOTE SERVICE DATE: 05/28/2021 SERVICE TIME: 8:14 AM PATIENT IDENTITY VERIFICATION COMPLETED USING TWO (2) STANDARD IDENTIFIERS: Name and Date of confirmed by patient verbally FALL SCREENING: Has the patient had 2 falls in the last year or 1 fall with injury or currently using an Ambulatory Assistive Device (Walker, Cane, Wheelchair, Crutches, etc.)? No PATIENT GENDER DATA: .male ALLERGIES: Reviewed and unchanged MEDICATIONS REVIEWED: Yes PATIENT RELEVANT IMPLANT DATA REVIEWED: Not Applicable CREATININE: No results found for: CREAT, EGFROTH, EGFRAA P.O.C.T. RESULTS: N/A May 28, [address] PERFORMED: No IV SITE: Ambulatory: NM only - direct IV injection in the Right antecubital site POST EXAM PIV STATUS: Not applicable PROCEDURE TYPE: NM INJECT: PET/CT BODY SCAN. 9.0 mCi F18 FDG. No other medications given.. ADMINISTRATION TIME: 0745 PATIENT DISCHARGED TO: Ambulatory patient, left NM department area. A Diagnostic radioactive procedure has taken place, with no further precautions necessary other than routine body substance precautions. More information regarding radiation safety can be found using this link: [email or web address] SIGNATURE: RT Ayaz(Marcella) PATIENT NAME: Pedro Gu DATE: May 28, 2021 TIME: 8:14 AM PAGER/CONTACT #: documented in this encounter [facility] Evaluation note Diagnosis Malignant neoplasm of upper lobe of left lung (HCC)- [facility] Follow-up examination following surgery Follow-up examination, following unspecified surgery [facility] Malignant neoplasm of upper lobe of left lung (HCC) [facility] Malignant neoplasm of upper lobe of left lung (HCC)- Primary [facility] Malignant neoplasm of upper lobe of left lung (HCC)- Primary [facility] Malignant neoplasm of upper lobe of left lung (HCC) [facility] Malignant neoplasm of upper lobe of left lung (HCC)- Primary [facility] Diagnosis Malignant neoplasm of upper lobe of left lung (HCC)- Primary [facility] Diagnosis Malignant neoplasm of upper lobe of left lung (HCC)- Primary [facility] Malignant neoplasm of upper lobe of left lung (HCC)- Primary [facility] Diagnosis Acute kidney injury (HCC)- Primary Acute kidney failure, unspecified [facility] Diagnosis Acute kidney injury (HCC)- Primary Acute kidney failure, unspecified Malignant neoplasm of upper lobe of left lung (HCC) [facility] Diagnosis Malignant neoplasm of upper lobe of left lung (HCC)- Primary Acute kidney injury (HCC) Acute kidney failure, unspecified [facility] Diagnosis Malignant neoplasm of upper lobe of left lung (HCC)- Primary Acute kidney injury (HCC) Acute kidney failure, unspecified [facility] Diagnosis Malignant neoplasm of upper lobe of left lung (HCC)- Primary Acute kidney injury (HCC) Acute kidney failure, unspecified [facility] Diagnosis Malignant neoplasm of upper lobe of left lung (HCC)- Primary Acute kidney injury (HCC) Acute kidney failure, unspecified [facility] Diagnosis Malignant neoplasm of upper lobe of left lung (HCC)- Primary Acute kidney injury (HCC) Acute kidney failure, unspecified [facility] Diagnosis Malignant neoplasm of upper lobe of left lung (HCC)- Primary [facility] Diagnosis Malignant neoplasm of upper lobe of left lung (HCC)- Primary [facility] Diagnosis Malignant neoplasm of upper lobe of left lung (HCC)- Primary [facility] Diagnosis Malignant neoplasm of upper lobe of left lung (HCC)- Primary Acute kidney injury (HCC) Acute kidney failure, unspecified 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 [facility] Diagnosis Malignant neoplasm of upper lobe of left lung (HCC)- Primary [facility] Diagnosis Malignant neoplasm of upper lobe of left lung (HCC)- Primary 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 Skin infection Unspecified local infection of skin and subcutaneous tissue [facility] Malignant neoplasm of upper lobe of left lung (HCC)- Primary 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 [facility] Diagnosis Chronic obstructive pulmonary disease, unspecified COPD type (HCC) Lung nodule Solitary pulmonary nodule [facility] Diagnosis Chronic obstructive pulmonary disease, unspecified COPD type (HCC) Lung nodule Solitary pulmonary nodule [facility] Diagnosis Chronic obstructive pulmonary disease, unspecified COPD type (HCC) Malignant neoplasm of upper lobe of left lung (HCC) PAD (peripheral artery disease) (HCC) Peripheral vascular disease, unspecified [facility] Diagnosis Malignant neoplasm of upper lobe of left lung (HCC) [facility] Diagnosis Malignant neoplasm of upper lobe of left lung (HCC)- Primary [facility] Diagnosis Malignant neoplasm of upper lobe of left lung (HCC)- Primary 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 Acute kidney injury (HCC) Acute kidney failure, unspecified Skin infection Unspecified local infection of skin and subcutaneous tissue [facility] Diagnosis Malignant neoplasm of upper lobe of left lung (HCC)- Primary 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 Acute kidney injury (HCC) Acute kidney failure, unspecified Skin infection Unspecified local infection of skin and subcutaneous tissue [facility] Diagnosis Chronic obstructive pulmonary disease, unspecified COPD type (HCC)- Primary [facility] Diagnosis Skin rash- Primary Rash and other nonspecific skin eruption [facility] Diagnosis Malignant neoplasm of upper lobe of left lung (HCC)- Primary 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 Skin infection Unspecified local infection of skin and subcutaneous tissue Rash Rash and other nonspecific skin eruption [facility] Diagnosis Malignant neoplasm of upper lobe of left lung (HCC)- Primary [facility] noteNo assessment information availableMercy [facility] Work Phone: Evaluation note* Diagnosis Malignant neoplasm of upper lobe of left lung (HCC)- Primary [facility] Diagnosis Malignant neoplasm of upper lobe of left lung (HCC)- Primary documented in this encounter [facility]* Diagnosis Malignant neoplasm of upper lobe of left lung (HCC)- Primary [facility] Cancer related pain- Primary Neoplasm related pain (acute) (chronic) Malignant neoplasm of unspecified part of unspecified bronchus or lung (HCC) [facility] Malignant neoplasm of upper lobe of left lung (HCC)- Primary [facility] Diagnosis Malignant neoplasm of upper lobe of left lung (HCC)- Primary [facility] Diagnosis Malignant neoplasm of upper lobe of left lung (HCC)- Primary [facility] Diagnosis Malignant neoplasm of unspecified part of unspecified bronchus or lung (HCC)- Primary [facility] Diagnosis Malignant neoplasm of upper lobe of left lung (HCC)- Primary 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 [facility] Diagnosis Thyroid cancer (HCC)- Primary Malignant neoplasm of thyroid gland [facility] Diagnosis Malignant neoplasm of upper lobe of left lung (HCC)- Primary Centrilobular emphysema (HCC) Other emphysema [facility] Diagnosis Malignant neoplasm of upper lobe of left lung (HCC)- Primary Malaise and fatigue Other malaise and fatigue [facility] Diagnosis Malignant neoplasm of upper lobe of left lung (HCC)- Primary Lung nodules Other nonspecific abnormal finding of lung field Centrilobular emphysema (HCC) Other emphysema [facility] Diagnosis Malignant neoplasm of upper lobe of left lung (HCC)- Primary Abnormal CT of the chest Nonspecific (abnormal) findings on radiological and other examination of other intrathoracic organs Lung nodules Other nonspecific abnormal finding of lung field Centrilobular emphysema (HCC) Other emphysema [facility] Cancer associated pain- Primary Neoplasm related pain (acute) (chronic) [facility] Diagnosis Malignant neoplasm of upper lobe of left lung (HCC)- Primary [facility] Diagnosis 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 Cancer related pain Neoplasm related pain (acute) (chronic) [facility] Diagnosis Malignant neoplasm of unspecified part of unspecified bronchus or lung (HCC)- Primary [facility] Diagnosis 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 Cancer related pain Neoplasm related pain (acute) (chronic) Centrilobular emphysema (HCC) Other emphysema Primary hypertension Unspecified essential hypertension [facility] Diagnosis 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) [facility] Diagnosis Malignant neoplasm of upper lobe of left lung (HCC)- Primary [facility] Diagnosis 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 Cancer related pain Neoplasm related pain (acute) (chronic) Abnormal LFTs Other abnormal blood chemistry [facility] Diagnosis 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 [facility] Diagnosis 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 Cancer related pain Neoplasm related pain (acute) (chronic) Abnormal LFTs Other abnormal blood chemistry [facility] Diagnosis 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 Abnormal LFTs Other abnormal blood chemistry Malaise and fatigue Other malaise and fatigue [facility] Diagnosis Malignant neoplasm of upper lobe of left lung (HCC)- Primary Centrilobular emphysema (HCC) Other emphysema Abnormal LFTs Other abnormal blood chemistry Cancer related pain Neoplasm related pain (acute) (chronic) PVD (peripheral vascular disease) (HCC) Peripheral vascular disease, unspecified Malaise and fatigue Other malaise and fatigue Protein-calorie malnutrition, unspecified severity (HCC) [facility] Diagnosis Malignant neoplasm of upper lobe of left lung (HCC)- Primary [facility] Diagnosis Cancer associated pain- Primary Neoplasm related pain (acute) (chronic) Malignant neoplasm of upper lobe of left lung (HCC) [facility] Diagnosis 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 Abnormal LFTs Other abnormal blood chemistry Cancer related pain Neoplasm related pain (acute) (chronic) [facility] Diagnosis 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 Malaise and fatigue Other malaise and fatigue [facility] Diagnosis Malignant neoplasm of upper lobe of left lung (HCC)- Primary [facility] Diagnosis Malignant neoplasm of unspecified part of unspecified bronchus or lung (HCC) 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) Abnormal LFTs Other abnormal blood chemistry Cancer related pain Neoplasm related pain (acute) (chronic) Protein-calorie malnutrition, unspecified severity (HCC) Centrilobular emphysema (HCC) Other emphysema PVD (peripheral vascular disease) (HCC) Peripheral vascular disease, unspecified Primary hypertension Unspecified essential hypertension [facility] Diagnosis Malignant neoplasm of upper lobe of left lung (HCC)- Primary [facility] Diagnosis Malignant neoplasm of upper lobe of left lung (HCC)- Primary [facility] Diagnosis Malignant neoplasm of upper lobe of left lung (HCC)- Primary [facility] Diagnosis 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 Cancer related pain Neoplasm related pain (acute) (chronic) Anxiety Anxiety state, unspecified [facility] Diagnosis Malignant neoplasm of unspecified part of unspecified bronchus or lung (HCC) [facility] Diagnosis Malignant neoplasm of upper lobe of left lung (HCC)- Primary [facility] Diagnosis 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 Malaise and fatigue Other malaise and fatigue Cancer related pain Neoplasm related pain (acute) (chronic) Anxiety Anxiety state, unspecified Rash Rash and other nonspecific skin eruption [facility] Diagnosis 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 Cancer related pain Neoplasm related pain (acute) (chronic) Abnormal LFTs Other abnormal blood chemistry Anxiety Anxiety state, unspecified Centrilobular emphysema (HCC) Other emphysema PVD (peripheral vascular disease) (HCC) Peripheral vascular disease, unspecified 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 Skin rash Rash and other nonspecific skin eruption [facility] Diagnosis 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) [facility] Diagnosis 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 Cancer related pain Neoplasm related pain (acute) (chronic) [facility] Diagnosis Palliative care by specialist- Primary 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 Nausea Nausea alone Anorexia Protein-calorie malnutrition, unspecified severity (HCC) Anxiety Anxiety state, unspecified 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 due to medical condition classified elsewhere [facility] Diagnosis Malignant neoplasm of upper lobe of left lung (HCC)- Primary [facility] Diagnosis Malignant neoplasm of upper lobe of left lung (HCC) [facility] Diagnosis Oropharyngeal cancer (HCC)- Primary Malignant neoplasm of oropharynx, unspecified site Tonsillar mass Swelling, mass, or lump in head and neck Malignant neoplasm of upper lobe of left lung (HCC) [facility] Diagnosis Oropharnyx cancer (HCC)- Primary [facility] Diagnosis Malignant neoplasm of upper lobe of left lung (HCC)- Primary Centrilobular emphysema (HCC) Other emphysema CAD in [place] artery Coronary atherosclerosis of [place] coronary artery PVD (peripheral vascular disease) (HCC) Peripheral vascular disease, unspecified Cancer related pain Neoplasm related pain (acute) (chronic) Tonsillar mass Swelling, mass, or lump in head and neck Abnormal LFTs Other abnormal blood chemistry Anxiety Anxiety state, unspecified Hypothyroidism due to medication [facility] Diagnosis Oropharnyx cancer (HCC)- Primary [facility]iative care by specialist- Primary 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) Cancer related pain Neoplasm related pain (acute) (chronic) Opioid contract exists Encounters for other specified administrative purpose 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 due to medical condition classified elsewhere Anorexia Protein-calorie malnutrition, unspecified severity (HCC) Nausea Nausea alone [facility] Diagnosis 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 Tonsillar mass Swelling, mass, or lump in head and neck Primary hypertension Unspecified essential hypertension Centrilobular emphysema (HCC) Other emphysema Coronary artery disease involving [place] coronary artery of [place] heart without angina pectoris Hypothyroidism due to medication Cancer related pain Neoplasm related pain (acute) (chronic) [facility] Diagnosis 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 Tonsillar mass Swelling, mass, or lump in head and neck Hypothyroidism due to medication Centrilobular emphysema (HCC) Other emphysema 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) [facility] Diagnosis 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 Tonsillar mass Swelling, mass, or lump in head and neck 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) [facility] Diagnosis 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) [facility] Diagnosis 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 due to medical condition classified elsewhere Anorexia [facility] Diagnosis Neoplasm related pain- Primary Neoplasm related pain (acute) (chronic) [facility] Diagnosis 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 Tonsillar mass Swelling, mass, or lump in head and neck 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) Centrilobular emphysema (HCC) Other emphysema [facility] Diagnosis 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 Abnormal weight loss Loss of weight [facility] Diagnosis 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 Tonsillar mass Swelling, mass, or lump in head and neck 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) Centrilobular emphysema (HCC) Other emphysema Abnormal LFTs Other abnormal blood chemistry [facility] Palliative care by specialist- Primary 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) Encounter for palliative care Chronic left shoulder pain Pain in joint, shoulder region Malignant neoplasm of upper lobe of left lung (HCC) Weight loss, unintentional Loss of weight Nausea Nausea alone Protein-calorie malnutrition, unspecified severity (HCC) Anxiety Anxiety state, unspecified 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 due to medical condition classified elsewhere [facility] Malignant neoplasm of upper lobe of left lung (HCC)- Primary [facility] Diagnosis 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 Tonsillar mass Swelling, mass, or lump in head and neck 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) Anxiety Anxiety state, unspecified [facility] Diagnosis Malignant neoplasm of upper lobe of left lung (HCC)- Primary [facility] Diagnosis Malignant neoplasm of upper lobe of left lung (HCC)- Primary [facility] Diagnosis Malignant neoplasm of upper lobe of left lung (HCC)- Primary 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 [facility] Malignant neoplasm of upper lobe of left lung (HCC)- Primary 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 [facility] Diagnosis 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 Tonsillar mass Swelling, mass, or lump in head and neck 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) [facility] Diagnosis 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) [facility] Diagnosis Neoplasm related pain- Primary Neoplasm related pain (acute) (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 classified elsewhere Anxiety about health Opioid contract exists Encounters for other specified administrative purpose [facility] Diagnosis 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 [facility] 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 Grigsby's office call tomorrow let them know that you were seen in the emergency department Please return here if you develop any chest pain, shortness of breath, numbness, tingling or any other concerns[facility] (narrative)* Diagnostic Procedure Only (Routine) - Pending Review Specialty Diagnoses / Procedures Referred By Contac t Referred To Contact MOLECULAR & FUNCTIONAL IMAGING Diagnoses Malignant neoplasm of unspecified part of unspecified bronchus or lung (HCC) Procedures NM BONE WHOLE BODY BONE &/JOINT IMAGING WHOLE BODY Jyoti Limon MD [address] [place] [address] [place] [address] Molecular & Functional Imaging [address] [place] [address] Referral ID Status Reason Start Date Expiration Date Visits Requested Visits Authorized [id number] Pending Review Auto-Generat ed Referral 04/08/2022 05/08/2023 1 1 [facility] for referral (narrative)* Diagnostic Procedure Only (Routine) - Authorized Specialty Diagnoses / Procedures Referred By Contac t Referred To Contact MOLECULAR & FUNCTIONAL IMAGING Diagnoses Lung nodules Procedures NM PET/CT SKULL-THIGH SUBSEQUENT PET IMAGING CT ATTENUATION SKULL BASE MID-THIGH Pito Grigsby MD [address] [place] [address] [place] [address] Molecular & Functional Imaging [address] [place] [address] Referral ID Status Reason Start Date Expiration Date Visits Requested Visits Authorized [id number] Authorized Auto-Generat ed Referral 09/23/2022 10/23/2023 1 1 [facility] for referral (narrative)* Diagnostic Procedure Only (Urgent) - Closed Specialty Diagnoses / Procedures [facility] To Contact MOLECULAR & FUNCTIONAL IMAGING Diagnoses Malignant neoplasm of unspecified part of unspecified bronchus or lung (HCC) Procedures NM PET/CT WHOLE BODY INITIAL TUMOR IMAG PET W/CONCURNT CT-WHOLE BODY Marianne Fields MD [address] [facility] [place] [address] Molecular & Functional Imaging [address] [place] [address] Referral ID Status Reason Start Date Expiration Date V isits Requested Visits Authorized [id number] Closed Clearance Not Met - Admin/Chairm an/Director Advise to Postpone/Res chedule or Not Proceed 05/14/2021 06/13/2021 2 2 [facility] for referral (narrative)* Diagnostic Procedure Only (Routine) - Authorized Specialty Diagnoses / Procedures Referred By [facility] Referred To Contact MOLECULAR & FUNCTIONAL IMAGING Diagnoses 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) Procedures NM PET/CT SKULL-THIGH SUBSEQUENT PET IMAGING CT ATTENUATION SKULL BASE MID-THIGH Pito Grigsby MD [address] [place] [address] [place] [address] Molecular & Functional Imaging [address] [place] [address] Referral ID Status Reason Start Date Expiration Date Visits Requested Visits Authorized [id number] Authorized Auto-Generat ed Referral 08/25/2023 09/23/2024 1 1 [facility] for referral (narrative)* Diagnostic Procedure Only (Routine) - Authorized Specialty Diagnoses / Procedures [facility] Referred To Contact MOLECULAR & FUNCTIONAL IMAGING Diagnoses 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) Procedures NM PET/CT SKULL-THIGH SUBSEQUENT PET IMAGING CT ATTENUATION SKULL BASE MID-THIGH Pito Grigsby MD [facility] [place] [address] Molecular & Functional Imaging [address] [place], [place] [id number] Referral ID Status Reason Start Date Expiration Date Visits Requested Visits Authorized [id number] Authorized Auto-Generat ed Referral 11/04/2023 12/03/2024 1 1 [facility] for referral (narrative)* Diagnostic Procedure Only (Routine) - Authorized Specialty Diagnoses / Procedures Referred By Contac t Referred To Contact MOLECULAR & FUNCTIONAL IMAGING Diagnoses 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 Swelling of arm Cancer associated pain Procedures NM PET/CT SKULL-THIGH SUBSEQUENT PET IMAGING CT ATTENUATION SKULL BASE MID-THIGH Mindy Pandya PA-C [address] [place] [address] Molecular & Functional Imaging [address] [place] [address] Referral ID Status Reason Start Date Expiration Date Visits Requested Visits Authorized [id number] Authorized Auto-Generat ed Referral 02/03/2024 03/04/2025 1 1 * Diagnostic Procedure Only (Urgent) - New Request Specialty Diagnoses / Procedures Referred By Contac t Referred To Contact US IMAGING Diagnoses 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) Swelling of arm Procedures US DVT UPPER LEFT DUP-SCAN XTR VEINS UNILATERAL/LIMITED STUDY Mindy Pandya PA-C [address] [place] [address] [facility] [place] [address] Referral ID Status Reason Start Date Expiration Date Visits Requested Visits Authorized [id number] New Request Auto-Generat ed Referral 02/03/2024 03/04/2025 1 1 [facility] for visit Narrative* Diagnostic Procedure Only (Urgent) - Closed Specialty Diagnoses / Procedures Referred By Contac t Referred To Contact MOLECULAR & FUNCTIONAL IMAGING Diagnoses Malignant neoplasm of unspecified part of unspecified bronchus or lung (HCC) Procedures NM PET/CT WHOLE BODY INITIAL TUMOR IMAG PET W/CONCURNT CT-WHOLE BODY Marianne Fields MD [address] [facility] [address] [place] [id number] Molecular & Functional Imaging [address] [place] [address] Referral ID Status Reason Start Date Expiration Date V isits Requested Visits Authorized [id number] Closed Clearance Not Met - Admin/Chairm an/Director Advise to Postpone/Res chedule or Not Proceed 05/14/2021 06/13/2021 2 2 [facility] Summary Purpose Family History Relationship Condition Age at Onset Recorded Date/T jackeline father Heart problem Unknown Malignant neoplasm of lung Unknown Advance Directives Documents on File Type Date Recorded 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 Advance Directive(s) 09/03/2021 12:55 PM Advance Directive(s) 07/10/2021 11:36 AM Documents on File Type Date Recorded 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 Advance Directive(s) 09/03/2021 12:55 PM Advance Directive(s) 07/10/2021 11:36 AM Advance Directive Response Recorded Date/ Time Advance Directives No May 11:17am Reason for Referral Specialty Diagnoses / Procedures Referred By Ap t Referred To Contact Oncology Diagnoses Malignant neoplasm of upper lobe of left lung (HCC) Procedures CONSULT TO ONCOLOGY OFFICE/OUTPATIENT [facility] MDM 60-74 MINUTES Aracelis Carrillo APRN.CNP [address] [place] [address] Referral ID Status Reason Start Date Expiration Date Visits Requested Visits Authorized [id number] Authorized PCP Requested Referral 10/11/2021 10/11/2022 1 1 Specialty Diagnoses / Procedures Referred By Ap t Referred To Contact Oncology Diagnoses Malignant neoplasm of upper lobe of left lung (HCC) Procedures CONSULT TO ONCOLOGY OFFICE/OUTPATIENT [facility] MDM 60-74 MINUTES Renetta Ponce MD [address] [place] [id number] Referral ID Status Reason Start Date Expiration Date V isits Requested Visits Authorized [id number] Closed PCP Requested Referral 10/26/2021 10/19/2022 1 1 Specialty Diagnoses / Procedures Referred By Contac t Referred To Contact MR IMAGING Diagnoses Malignant neoplasm of upper lobe of left lung (HCC) Procedures MRI BRAIN WO/W IVCON MRI BRAIN BRAIN STEM W/O W/CONTRAST MATERIAL Renetta Ponce MD [address] [place] [address] Mr Imaging Referral ID Status Reason Start Date Expiration Date Visits Requested Visits Authorized [id number] Authorized Auto-Generat ed Referral 10/26/2021 11/18/2021 1 1 Specialty Diagnoses / Procedures Referred By Contac t Referred To Contact Dermatology Diagnoses Skin rash Procedures CONSULT TO DERMATOLOGY OFFICE/OUTPATIENT [facility] 60-74 MINUTES Brent Miller, STATION MECHANIC HELPER.[address] [place] [address] Referral ID Status Reason Start Date Expiration Date Visits Requested Visits Authorized [id number] Authorized PCP Requested Referral 02/26/2022 02/26/2023 1 1 Specialty Diagnoses / Procedures Referred By Contac t Referred To Contact CT IMAGING Diagnoses Malignant neoplasm of unspecified part of unspecified bronchus or lung (HCC) Procedures CT CHEST W IVCON DIAGNOSTIC COMPUTED TOMOGRAPHY THORAX W/CONTRAST Jyoti Limon MD [address] [place] [address] [place] [address] Ct Imaging Referral ID Status Reason Start Date Expiration Date V isits Requested Visits Authorized [id number] Closed Auto-Generate d Referral 06/11/2022 07/11/2023 1 1 Specialty Diagnoses / Procedures Referred By Contac t Referred To Contact CT IMAGING Diagnoses Malignant neoplasm of unspecified part of unspecified bronchus or lung (HCC) Procedures CT CHEST W IVCON DIAGNOSTIC COMPUTED TOMOGRAPHY THORAX W/CONTRAST Pito Grigsby MD [address] [address] [place] [address] Ct Imaging Referral ID Status Reason Start Date Expiration Date Visits Requested Visits Authorized [id number] Pending Review Auto-Generat ed Referral 08/20/2022 09/19/2023 1 1 Specialty Diagnoses / Procedures Referred By Contac t Referred To Contact CT IMAGING Diagnoses Malignant neoplasm of upper lobe of left lung (HCC) Procedures CT ABD/PEL W IVCON CT ABD & PELVIS W/CONTRAST Pito Grigsby MD [address] [place] [address] [place] [address] Ct Imaging Referral ID Status Reason Start Date Expiration Date Visits Requested Visits Authorized [id number] Pending Review Auto-Generat ed Referral 08/20/2022 09/19/2023 1 1 Specialty Diagnoses / Procedures Referred By Contac t Referred To Contact Diagnoses Malignant neoplasm of unspecified part of unspecified bronchus or lung (HCC) Procedures CT SIM PLANNING RADIATION ONCOLOGY THER RAD SIMULAJ-AIDED FIELD SETTING COMPLEX Jyoti Limon MD [address] [place] [address] [place] [address] Referral ID Status Reason Start Date Expiration Date Visits Requested Visits Authorized [id number] Pending Review PCP Requested Referral 10/21/2022 01/19/2023 1 1 Specialty Diagnoses / Procedures Referred By Contac t Referred To Contact Diagnoses 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 60-74 MINUTES Brent Miller, OZZIE.[address] [place] [address] Referral ID Status Reason Start Date Expiration Date Visits Requested Visits Authorized [id number] Authorized PCP Requested Referral 05/14/2024 1 1 Specialty Diagnoses / Procedures Referred By Contac t Referred To Contact MR IMAGING Diagnoses Malignant neoplasm of upper lobe of left lung (HCC) Procedures MRI BRAIN WO/W IVCON MRI BRAIN BRAIN STEM W/O W/CONTRAST MATERIAL Renetta Ponce MD [address] [place] [address] Mr [facility] [place] [address] Referral ID Status Reason Start Date Expiration Date V isits Requested Visits Authorized [id number] Closed Auto-Generate d Referral 10/26/2021 11/18/2021 1 1 Specialty Diagnoses / Procedures Referred By Contac t Referred To Contact Diagnoses Oropharnyx cancer (HCC) Procedures CT SIM PLANNING RADIATION ONCOLOGY THER RAD SIMULAJ-AIDED FIELD SETTING COMPLEX Jyoti Limon MD [address] [place] [address] [place] [address] Referral ID Status Reason Start Date Expiration Date Visits Requested Visits Authorized [id number] Pending Review PCP Requested Referral 3 09/08/2023 1 1 Specialty Diagnoses / Procedures Referred By Contac t Referred To Contact CT IMAGING Diagnoses 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) Procedures CT CHEST W IVCON DIAGNOSTIC COMPUTED TOMOGRAPHY THORAX W/CONTRAST Pito Grigsby MD [address] [place] [address] [place] [address] [place] [address] Referral ID Status Reason Start Date Expiration Date V isits Requested Visits Authorized [id number] Closed Auto-Generate d Referral 10/20/2023 11/18/2024 1 1 Specialty Diagnoses / Procedures Referred By Contac t Referred To Contact [facility] Diagnoses Chronic left shoulder pain Procedures CONSULT TO PHYSICAL THERAPY PHYSICAL THERAPY EVALUATION HIGH COMPLEX 45 MINS Maryjo Fish, STATION MECHANIC HELPER.RN DERMATOLOGY [address] [place] [address] [facility] [place] [address] [place] [address] Referral ID Status Reason Start Date Expiration Date Visits Requested Visits Authorized [id number] Pending Review Auto-Generat ed Referral 11/21/2023 11/20/2024 1 1 Specialty Diagnoses / Procedures Referred By Contac t Referred To Contact RADIATION ONCOLOGY Diagnoses Malignant neoplasm of upper lobe of left lung (HCC) 15 FX plus sim IMRT Procedures CT SIM PLANNING RADIATION ONCOLOGY THER RAD SIMULAJ-AIDED FIELD SETTING COMPLEX INTENSITY MODULATED RADIATION TX DLVR COMPLEX 15 FX plus sim IMRT Jyoti Limon MD [address] [place] [address] [place] [address] [address] [place] [address] Referral ID Status Reason Start Date Expiration Date Visits Requested Visits Authorized [id number] Authorized PCP Requested Referral 12/03/2023 06/03/2024 16 16 Medications Administered Section Inactive Administered Medications - up to 3 most recent administrations Medication Order MAR Action Action Date Dose Rate Site cyanocobalamin 1,000 mcg injection 1,000 mcg, INTRAMUSCULAR, ONCE, 1 dose, On Fri10/29/21 at 1030 Given 10/29/2021 10:51 AM EDT 1,000 mcg Deltoid, Right Inactive Administered Medications - up to 3 most recent administrations Medication Order MAR Action Action Date Dose Rate Site CISplatin 124.5 mg in NaCl 0.9% 1,000 mL (PLATINOL) 124.5 mg (75 mg/m2 1.66 m2 Treatment Plan BSA from Recorded weight), INTRAVENOUS, Administer over 1 Hours, ONCE, 1 dose, On Fri11/05/21 at 1000, Approx Total Volume: mL EXP:11/06/2021@1545 Hazardous Chemotherapy Drug: Use appropriate PPE. Antineoplastic Vesicant for concentrations greater than 0.4 mg/mL - Antineoplastic Irritant for concentrations less than 0.4 mg/mL. Protect from Light. New Bag/Syringe/Bot tle 11/05/2021 11:56 AM EDT 124.5 mg cyanocobalamin 1,000 mcg injection 1,000 mcg, INTRAMUSCULAR, ONCE, 1 dose, On Fri11/05/21 at 1000 Given 11/05/2021 10:09 AM EDT 1,000 mcg Ankle, Right dexAMETHasone 10 mg/NS 50 mL (PYXIS) 10 mg ivpb (DECADRON) 10 mg, INTRAVENOUS, ONCE, 1 dose, On Fri11/05/21 at 1000, Refrigerate. New Bag/Syringe/Bot tle 11/05/2021 10:09 AM EDT 10 mg fosaprepitant 150 mg in NaCl 0.9% 250 mL iv piggyback 150 mg, INTRAVENOUS, Administer over 30 Minutes, ONCE, 1 dose, On Fri11/05/21 at 1000, Approximate Total Volume = 280 mL New Bag/Syringe/Bot tle 11/05/2021 10:28 AM EDT 150 mg NaCl 0.9% 1,000 mL INTRAVENOUS, at 999 mL/hr, Administer over 1 Hours, ONCE, 1 dose, On Fri11/05/21 at 1000, Give prior to chemotherapy. New Bag/Syringe/Bot tle 11/05/2021 9:48 AM EDT 999 mL/hr NaCl 0.9% 1,000 mL INTRAVENOUS, at 999 mL/hr, Administer over 1 Hours, ONCE, 1 dose, On Fri11/05/21 at 1000, Give after chemotherapy. New Bag/Syringe/Bot tle 11/05/2021 1:10 PM EDT 999 mL/hr palonosetron 0.25 mg injection (ALOXI) 0.25 mg, INTRAVENOUS, ONCE, 1 dose, On Fri11/05/21 at 1000, Flush IV line with NS prior to and following administration. Given 11/05/2021 10:09 AM EDT 0.25 mg PEMEtrexed disodium 800 mg in NaCl 0.9% 100 mL (ALIMTA) 800 mg (rounded from 830 mg = 500 mg/m2 1.66 m2 Treatment Plan BSA from Recorded weight), INTRAVENOUS, Administer over 10 Minutes, ONCE, 1 dose, On Fri11/05/21 at 1000, Approx Total Volume: mL EXP:11/06/2021@1545 Hazardous Chemotherapy Drug: Use appropriate PPE. New Bag/Syringe/Bot tle 11/05/2021 11:39 AM EDT 800 mg Inactive Administered Medications - up to 3 most recent administrations Medication Order MAR Action Action Date Dose Rate Site NaCl 0.9% 1,000 mL INTRAVENOUS, at 999 mL/hr, Administer over 1 Hours, ONCE, 1 dose, On Fri11/12/21 at 1500 New Bag/Syringe/Bottle 11/12/2021 2:45 PM EDT 999 mL/hr Inactive Administered Medications - up to 3 most recent administrations Medication Order MAR Action Action Date Dose Rate Site NaCl 0.9% 1,000 mL INTRAVENOUS, at 999 mL/hr, Administer over 1 Hours, ONCE, 1 dose, On Fri11/13/21 at 1200 New Bag/Syringe/Bottle 11/13/2021 11:45 AM EDT 999 mL/hr Inactive Administered Medications - up to 3 most recent administrations Medication Order MAR Action Action Date Dose Rate Site NaCl 0.9% 1,000 mL INTRAVENOUS, at 999 mL/hr, Administer over 1 Hours, ONCE, 1 dose, On Fri11/15/21 at 1500 New Bag/Syringe/Bottle 11/15/2021 2:31 PM EDT 999 mL/hr Inactive Administered Medications - up to 3 most recent administrations Medication Order MAR Action Action Date Dose Rate Site NaCl 0.9% 1,000 mL INTRAVENOUS, at 999 mL/hr, Administer over 1 Hours, ONCE, 1 dose, On Fri11/16/21 at 0930 New Bag/Syringe/Bottle 11/16/2021 9:02 AM EDT 999 mL/hr Inactive Administered Medications - up to 3 most recent administrations Medication Order MAR Action Action Date Dose Rate Site NaCl 0.9% 1,000 mL INTRAVENOUS, at 999 mL/hr, Administer over 1 Hours, ONCE, 1 dose, On Fri11/19/21 at 0930 New Bag/Syringe/Bottle 11/19/2021 9:30 AM EDT 999 mL/hr Inactive Administered Medications - up to 3 most recent administrations Medication Order MAR Action Action Date Dose Rate Site NaCl 0.9% 1,000 mL INTRAVENOUS, at 999 mL/hr, Administer over 1 Hours, ONCE, 1 dose, On Fri11/21/21 at 1530 New Bag/Syringe/Bottle 11/21/2021 3:30 PM EDT 999 mL/hr Inactive Administered Medications - up to 3 most recent administrations Medication Order MAR Action Action Date Dose Rate Site NaCl 0.9% 1,000 mL INTRAVENOUS, at 999 mL/hr, Administer over 1 Hours, ONCE, 1 dose, On Fri11/30/21 at 1130 New Bag/Syringe/Bottle 11/30/2021 11:23 AM EDT 999 mL/hr Inactive Administered Medications - up to 3 most recent administrations Medication Order MAR Action Action Date Dose Rate Site CARBOplatin 475.5 mg in NaCl 0.9% 322.55 mL (PARAPLATIN) 475.5 mg (Target AUC = 5), INTRAVENOUS, Administer over 30 Minutes, ONCE, 1 dose, On Fri12/24/21 at 1100, Approx Total Volume: mL EXP:_12/25/2021@1100 Hazardous Chemotherapy Drug: Use appropriate PPE. Antineoplastic Irritant. New Bag/Syringe/Tiana le 12/24/2021 11:53 AM EDT 475.5 mg cyanocobalamin 1,000 mcg injection 1,000 mcg, INTRAMUSCULAR, ONCE, 1 dose, On Fri12/24/21 at 1100 Given 12/24/2021 10:53 AM EDT 1,000 mcg Deltoid, Left dexAMETHasone 10 mg/NS 50 mL (PYXIS) 10 mg ivpb (DECADRON) 10 mg, INTRAVENOUS, ONCE, 1 dose, On Fri12/24/21 at 1100, Refrigerate. New Bag/Syringe/Tiana le 12/24/2021 10:53 AM EDT 10 mg palonosetron 0.25 mg injection (ALOXI) 0.25 mg, INTRAVENOUS, ONCE, 1 dose, On Fri12/24/21 at 1100, Flush IV line with NS prior to and following administration. Given 12/24/2021 10:53 AM EDT 0.25 mg PEMEtrexed disodium 845 mg in NaCl 0.9% 143.8 mL (ALIMTA) 845 mg (500 mg/m2 1.69 m2 Treatment Plan BSA from Recorded weight), INTRAVENOUS, Administer over 10 Minutes, ONCE, 1 dose, On Fri12/24/21 at 1100, Approx Total Volume: mL EXP:12/25/2021@1600 Hazardous Chemotherapy Drug: Use appropriate PPE. New Bag/Syringe/Tiana le 12/24/2021 11:35 AM EDT 845 mg Inactive Administered Medications - up to 3 most recent administrations Medication Order MAR Action Action Date Dose Rate Site pembrolizumab 200 mg in NaCl 0.9% 66 mL (KEYTRUDA) 200 mg, INTRAVENOUS, Administer over 30 Minutes, ONCE, 1 dose, On Fri10/21/22 at 1430, Approx Total Volume: 66 mL Administer with 0.2 micron filter. New Bag/Syringe/Bottle 10/21/2022 2:41 PM EDT 200 mg Inactive Administered Medications - up to 3 most recent administrations Medication Order MAR Action Action Date Dose Rate Site pembrolizumab 200 mg in NaCl 0.9% 66 mL (KEYTRUDA) 200 mg, INTRAVENOUS, Administer over 30 Minutes, ONCE, 1 dose, On Fri11/25/22 at 1130, Approx Total Volume: 66 mL EXP 11111/26/22 Administer with 0.2 micron filter. New Bag/Syringe/Bottle 11/25/2022 11:29 AM EDT 200 mg Inactive Administered Medications - up to 3 most recent administrations Medication Order MAR Action Action Date Dose Rate Site pembrolizumab 200 mg in NaCl 0.9% 66 mL (KEYTRUDA) 200 mg, INTRAVENOUS, Administer over 30 Minutes, ONCE, 1 dose, On Fri01/07/23 at 1200, Approx Total Volume: 66 mL EXP: 1750 Administer with 0.2 micron filter. New Bag/Syringe/Bottle 01/07/2023 12:06 PM EDT 200 mg Inactive Administered Medications - up to 3 most recent administrations Medication Order MAR Action Action Date Dose Rate Site pembrolizumab 200 mg in NaCl 0.9% 66 mL (KEYTRUDA) 200 mg, INTRAVENOUS, Administer over 30 Minutes, ONCE, 1 dose, On Fri01/28/23 at 1500, Approx Total Volume: 66 mL EXP: 2100 Administer with 0.2 micron filter. New Bag/Syringe/Bottle 01/28/2023 3:07 PM EDT 200 mg Inactive Administered Medications - up to 3 most recent administrations Medication Order MAR Action Action Date Dose Rate Site pembrolizumab 200 mg in NaCl 0.9% 66 mL (KEYTRUDA) 200 mg, INTRAVENOUS, Administer over 30 Minutes, ONCE, 1 dose, On Fri02/18/23 at 1530, Approx Total Volume: 66 mL EXP: 02/18/23 2115 RT Administer with 0.2 micron filter. New Bag/Syringe/Bottle 02/18/2023 3:27 PM EDT 200 mg Inactive Administered Medications - up to 3 most recent administrations Medication Order MAR Action Action Date Dose Rate Site pembrolizumab 200 mg in NaCl 0.9% 66 mL (KEYTRUDA) 200 mg, INTRAVENOUS, Administer over 30 Minutes, ONCE, 1 dose, On Fri03/11/23 at 1430, Approx Total Volume: 66 mL. EXP: 03/11/23 2020 RT Administer with 0.2 micron filter. New Bag/Syringe/Bottle 03/11/2023 2:49 PM EDT 200 mg Inactive Administered Medications - up to 3 most recent administrations Medication Order MAR Action Action Date Dose Rate Site pembrolizumab 200 mg in NaCl 0.9% 66 mL (KEYTRUDA) 200 mg, INTRAVENOUS, Administer over 30 Minutes, ONCE, 1 dose, On Fri04/01/23 at 1330, Approx Total Volume: 66 mL. EXP: 1330 04/02/23 Administer with 0.2 micron filter. New Bag/Syringe/Bottle 04/01/2023 1:45 PM EDT 200 mg potassium chloride iv piggyback 20 mEq/100 mL 20 mEq, INTRAVENOUS, at 100 mL/hr, Administer over 1 Hours, ONCE, 1 dose, On Fri04/01/23 at 1400, NONCYTOTOXIC VESICANT If ordered with infusion rate range, start with maximum infusion rate and decrease rate if infusion is not tolerated New Bag/Syringe/Bottle 04/01/2023 2:19 PM EDT 20 mEq 100 mL/hr Chief Complaint and Reason for Visit Chief Complaint R21 Chief Complaint Coughing up Blood Chief Complaint SOB Additional Source Comments (unrecognized sect ion and content) No Status Records FoundNo Status Records FoundNo Status Records FoundNo Status Records FoundNo Status Records FoundNo Status Records FoundNo Status Records Found INFORMATION SOURCE (unrecogn ized section and content) DATE CREATED AUTHOR 02/22/2020 [facility] DATE CREATED AUTHOR AUTHOR'S ORGANIZ ATION 10/14/2022 [facility] DATE CREATED AUTHOR AUTHOR'S ORGANIZ ATION 10/25/2022 [facility] DATE CREATED AUTHOR AUTHOR'S ORGANIZ ATION 01/18/2023 [facility] DATE CREATED AUTHOR AUTHOR'S ORGANIZ ATION 02/09/2024 [facility] DATE CREATED AUTHOR AUTHOR'S ORGANIZ ATION 02/10/2024 [facility] DATE CREATED AUTHOR AUTHOR'S ORGANIZ ATION 02/18/2024 [facility] Source Comments (unrecognize d section and content) In the event this informatio n is protected by the Federal Confidentiality of Alcohol and Drug Abuse Patient Records regulations: The Federal rules restrict any use of the information to criminally investigate or prosecute any alcohol or drug abuse patient.[facility] RehabilitationIn the event this information is protected by the Federal Confidentiality of Alcohol and Drug Abuse Patient Records regulations: The Federal rules restrict any use of the information to criminally investigate or prosecute any alcohol or drug abuse patient.[facility] RehabilitationIn the event this information is protected by the Federal Confidentiality of Alcohol and Drug Abuse Patient Records regulations: The Federal rules restrict any use of the information to criminally investigate or prosecute any alcohol or drug abuse patient.[facility] RehabilitationIn the event this information is protected by the Federal Confidentiality of Alcohol and Drug Abuse Patient Records regulations: The Federal rules restrict any use of the information to criminally investigate or prosecute any alcohol or drug abuse patient.[facility] RehabilitationIn the event this information is protected by the Federal Confidentiality of Alcohol and Drug Abuse Patient Records regulations: The Federal rules restrict any use of the information to criminally investigate or prosecute any alcohol or drug abuse patient.[facility] RehabilitationIn the event this information is protected by the Federal Confidentiality of Alcohol and Drug Abuse Patient Records regulations: The Federal rules restrict any use of the information to criminally investigate or prosecute any alcohol or drug abuse patient.[facility] RehabilitationIn the event this information is protected by the Federal Confidentiality of Alcohol and Drug Abuse Patient Records regulations: The Federal rules restrict any use of the information to criminally investigate or prosecute any alcohol or drug abuse patient.[facility] RehabilitationIn the event this information is protected by the Federal Confidentiality of Alcohol and Drug Abuse Patient Records regulations: The Federal rules restrict any use of the information to criminally investigate or prosecute any alcohol or drug abuse patient.[facility] RehabilitationIn the event this information is protected by the Federal Confidentiality of Alcohol and Drug Abuse Patient Records regulations: The Federal rules restrict any use of the information to criminally investigate or prosecute any alcohol or drug abuse patient.[facility] RehabilitationIn the event this information is protected by the Federal Confidentiality of Alcohol and Drug Abuse Patient Records regulations: The Federal rules restrict any use of the information to criminally investigate or prosecute any alcohol or drug abuse patient.[facility] RehabilitationIn the event this information is protected by the Federal Confidentiality of Alcohol and Drug Abuse Patient Records regulations: The Federal rules restrict any use of the information to criminally investigate or prosecute any alcohol or drug abuse patient.[facility] RehabilitationIn the event this information is protected by the Federal Confidentiality of Alcohol and Drug Abuse Patient Records regulations: The Federal rules restrict any use of the information to criminally investigate or prosecute any alcohol or drug abuse patient.[facility] RehabilitationIn the event this information is protected by the Federal Confidentiality of Alcohol and Drug Abuse Patient Records regulations: The Federal rules restrict any use of the information to criminally investigate or prosecute any alcohol or drug abuse patient.[facility] RehabilitationIn the event this information is protected by the Federal Confidentiality of Alcohol and Drug Abuse Patient Records regulations: The Federal rules restrict any use of the information to criminally investigate or prosecute any alcohol or drug abuse patient.[facility] RehabilitationIn the event this information is protected by the Federal Confidentiality of Alcohol and Drug Abuse Patient Records regulations: The Federal rules restrict any use of the information to criminally investigate or prosecute any alcohol or drug abuse patient.[facility] RehabilitationIn the event this information is protected by the Federal Confidentiality of Alcohol and Drug Abuse Patient Records regulations: The Federal rules restrict any use of the information to criminally investigate or prosecute any alcohol or drug abuse patient.[facility] RehabilitationIn the event this information is protected by the Federal Confidentiality of Alcohol and Drug Abuse Patient Records regulations: The Federal rules restrict any use of the information to criminally investigate or prosecute any alcohol or drug abuse patient.[facility] RehabilitationIn the event this information is protected by the Federal Confidentiality of Alcohol and Drug Abuse Patient Records regulations: The Federal rules restrict any use of the information to criminally investigate or prosecute any alcohol or drug abuse patient.[facility] RehabilitationIn the event this information is protected by the Federal Confidentiality of Alcohol and Drug Abuse Patient Records regulations: The Federal rules restrict any use of the information to criminally investigate or prosecute any alcohol or drug abuse patient.[facility] RehabilitationIn the event this information is protected by the Federal Confidentiality of Alcohol and Drug Abuse Patient Records regulations: The Federal rules restrict any use of the information to criminally investigate or prosecute any alcohol or drug abuse patient.[facility] RehabilitationIn the event this information is protected by the Federal Confidentiality of Alcohol and Drug Abuse Patient Records regulations: The Federal rules restrict any use of the information to criminally investigate or prosecute any alcohol or drug abuse patient.[facility] RehabilitationIn the event this information is protected by the Federal Confidentiality of Alcohol and Drug Abuse Patient Records regulations: The Federal rules restrict any use of the information to criminally investigate or prosecute any alcohol or drug abuse patient.[facility] RehabilitationIn the event this information is protected by the Federal Confidentiality of Alcohol and Drug Abuse Patient Records regulations: The Federal rules restrict any use of the information to criminally investigate or prosecute any alcohol or drug abuse patient.[facility] RehabilitationIn the event this information is protected by the Federal Confidentiality of Alcohol and Drug Abuse Patient Records regulations: The Federal rules restrict any use of the information to criminally investigate or prosecute any alcohol or drug abuse patient.[facility] RehabilitationIn the event this information is protected by the Federal Confidentiality of Alcohol and Drug Abuse Patient Records regulations: The Federal rules restrict any use of the information to criminally investigate or prosecute any alcohol or drug abuse patient.[facility] RehabilitationIn the event this information is protected by the Federal Confidentiality of Alcohol and Drug Abuse Patient Records regulations: The Federal rules restrict any use of the information to criminally investigate or prosecute any alcohol or drug abuse patient.[facility] RehabilitationIn the event this information is protected by the Federal Confidentiality of Alcohol and Drug Abuse Patient Records regulations: The Federal rules restrict any use of the information to criminally investigate or prosecute any alcohol or drug abuse patient.[facility] RehabilitationIn the event this information is protected by the Federal Confidentiality of Alcohol and Drug Abuse Patient Records regulations: The Federal rules restrict any use of the information to criminally investigate or prosecute any alcohol or drug abuse patient.[facility] RehabilitationIn the event this information is protected by the Federal Confidentiality of Alcohol and Drug Abuse Patient Records regulations: The Federal rules restrict any use of the information to criminally investigate or prosecute any alcohol or drug abuse patient.[facility] RehabilitationIn the event this information is protected by the Federal Confidentiality of Alcohol and Drug Abuse Patient Records regulations: The Federal rules restrict any use of the information to criminally investigate or prosecute any alcohol or drug abuse patient.[facility] RehabilitationIn the event this information is protected by the Federal Confidentiality of Alcohol and Drug Abuse Patient Records regulations: The Federal rules restrict any use of the information to criminally investigate or prosecute any alcohol or drug abuse patient.[facility] RehabilitationIn the event this information is protected by the Federal Confidentiality of Alcohol and Drug Abuse Patient Records regulations: The Federal rules restrict any use of the information to criminally investigate or prosecute any alcohol or drug abuse patient.[facility] RehabilitationIn the event this information is protected by the Federal Confidentiality of Alcohol and Drug Abuse Patient Records regulations: The Federal rules restrict any use of the information to criminally investigate or prosecute any alcohol or drug abuse patient.[facility] RehabilitationIn the event this information is protected by the Federal Confidentiality of Alcohol and Drug Abuse Patient Records regulations: The Federal rules restrict any use of the information to criminally investigate or prosecute any alcohol or drug abuse patient.[facility] RehabilitationIn the event this information is protected by the Federal Confidentiality of Alcohol and Drug Abuse Patient Records regulations: The Federal rules restrict any use of the information to criminally investigate or prosecute any alcohol or drug abuse patient.[facility] RehabilitationIn the event this information is protected by the Federal Confidentiality of Alcohol and Drug Abuse Patient Records regulations: The Federal rules restrict any use of the information to criminally investigate or prosecute any alcohol or drug abuse patient.[facility] RehabilitationIn the event this information is protected by the Federal Confidentiality of Alcohol and Drug Abuse Patient Records regulations: The Federal rules restrict any use of the information to criminally investigate or prosecute any alcohol or drug abuse patient.[facility] RehabilitationIn the event this information is protected by the Federal Confidentiality of Alcohol and Drug Abuse Patient Records regulations: The Federal rules restrict any use of the information to criminally investigate or prosecute any alcohol or drug abuse patient.[facility] RehabilitationIn the event this information is protected by the Federal Confidentiality of Alcohol and Drug Abuse Patient Records regulations: The Federal rules restrict any use of the information to criminally investigate or prosecute any alcohol or drug abuse patient.[facility] RehabilitationIn the event this information is protected by the Federal Confidentiality of Alcohol and Drug Abuse Patient Records regulations: The Federal rules restrict any use of the information to criminally investigate or prosecute any alcohol or drug abuse patient.[facility] RehabilitationIn the event this information is protected by the Federal Confidentiality of Alcohol and Drug Abuse Patient Records regulations: The Federal rules restrict any use of the information to criminally investigate or prosecute any alcohol or drug abuse patient.[facility] RehabilitationIn the event this information is protected by the Federal Confidentiality of Alcohol and Drug Abuse Patient Records regulations: The Federal rules restrict any use of the information to criminally investigate or prosecute any alcohol or drug abuse patient.[facility] RehabilitationIn the event this information is protected by the Federal Confidentiality of Alcohol and Drug Abuse Patient Records regulations: The Federal rules restrict any use of the information to criminally investigate or prosecute any alcohol or drug abuse patient.[facility] RehabilitationIn the event this information is protected by the Federal Confidentiality of Alcohol and Drug Abuse Patient Records regulations: The Federal rules restrict any use of the information to criminally investigate or prosecute any alcohol or drug abuse patient.[facility] RehabilitationIn the event this information is protected by the Federal Confidentiality of Alcohol and Drug Abuse Patient Records regulations: The Federal rules restrict any use of the information to criminally investigate or prosecute any alcohol or drug abuse patient.[facility] RehabilitationIn the event this information is protected by the Federal Confidentiality of Alcohol and Drug Abuse Patient Records regulations: The Federal rules restrict any use of the information to criminally investigate or prosecute any alcohol or drug abuse patient.[facility] RehabilitationIn the event this information is protected by the Federal Confidentiality of Alcohol and Drug Abuse Patient Records regulations: The Federal rules restrict any use of the information to criminally investigate or prosecute any alcohol or drug abuse patient.[facility] RehabilitationIn the event this information is protected by the Federal Confidentiality of Alcohol and Drug Abuse Patient Records regulations: The Federal rules restrict any use of the information to criminally investigate or prosecute any alcohol or drug abuse patient.[facility] RehabilitationIn the event this information is protected by the Federal Confidentiality of Alcohol and Drug Abuse Patient Records regulations: The Federal rules restrict any use of the information to criminally investigate or prosecute any alcohol or drug abuse patient.[facility] RehabilitationIn the event this information is protected by the Federal Confidentiality of Alcohol and Drug Abuse Patient Records regulations: The Federal rules restrict any use of the information to criminally investigate or prosecute any alcohol or drug abuse patient.[facility] RehabilitationIn the event this information is protected by the Federal Confidentiality of Alcohol and Drug Abuse Patient Records regulations: The Federal rules restrict any use of the information to criminally investigate or prosecute any alcohol or drug abuse patient.[facility] RehabilitationIn the event this information is protected by the Federal Confidentiality of Alcohol and Drug Abuse Patient Records regulations: The Federal rules restrict any use of the information to criminally investigate or prosecute any alcohol or drug abuse patient.[facility] RehabilitationIn the event this information is protected by the Federal Confidentiality of Alcohol and Drug Abuse Patient Records regulations: The Federal rules restrict any use of the information to criminally investigate or prosecute any alcohol or drug abuse patient.[facility] RehabilitationIn the event this information is protected by the Federal Confidentiality of Alcohol and Drug Abuse Patient Records regulations: The Federal rules restrict any use of the information to criminally investigate or prosecute any alcohol or drug abuse patient.[facility] RehabilitationIn the event this information is protected by the Federal Confidentiality of Alcohol and Drug Abuse Patient Records regulations: The Federal rules restrict any use of the information to criminally investigate or prosecute any alcohol or drug abuse patient.[facility] RehabilitationIn the event this information is protected by the Federal Confidentiality of Alcohol and Drug Abuse Patient Records regulations: The Federal rules restrict any use of the information to criminally investigate or prosecute any alcohol or drug abuse patient.[facility] RehabilitationIn the event this information is protected by the Federal Confidentiality of Alcohol and Drug Abuse Patient Records regulations: The Federal rules restrict any use of the information to criminally investigate or prosecute any alcohol or drug abuse patient.[facility] RehabilitationIn the event this information is protected by the Federal Confidentiality of Alcohol and Drug Abuse Patient Records regulations: The Federal rules restrict any use of the information to criminally investigate or prosecute any alcohol or drug abuse patient.[facility] RehabilitationIn the event this information is protected by the Federal Confidentiality of Alcohol and Drug Abuse Patient Records regulations: The Federal rules restrict any use of the information to criminally investigate or prosecute any alcohol or drug abuse patient.[facility] RehabilitationIn the event this information is protected by the Federal Confidentiality of Alcohol and Drug Abuse Patient Records regulations: The Federal rules restrict any use of the information to criminally investigate or prosecute any alcohol or drug abuse patient.[facility] RehabilitationIn the event this information is protected by the Federal Confidentiality of Alcohol and Drug Abuse Patient Records regulations: The Federal rules restrict any use of the information to criminally investigate or prosecute any alcohol or drug abuse patient.[facility] RehabilitationIn the event this information is protected by the Federal Confidentiality of Alcohol and Drug Abuse Patient Records regulations: The Federal rules restrict any use of the information to criminally investigate or prosecute any alcohol or drug abuse patient.[facility] RehabilitationIn the event this information is protected by the Federal Confidentiality of Alcohol and Drug Abuse Patient Records regulations: The Federal rules restrict any use of the information to criminally investigate or prosecute any alcohol or drug abuse patient.[facility] RehabilitationIn the event this information is protected by the Federal Confidentiality of Alcohol and Drug Abuse Patient Records regulations: The Federal rules restrict any use of the information to criminally investigate or prosecute any alcohol or drug abuse patient.[facility] RehabilitationIn the event this information is protected by the Federal Confidentiality of Alcohol and Drug Abuse Patient Records regulations: The Federal rules restrict any use of the information to criminally investigate or prosecute any alcohol or drug abuse patient.[facility] RehabilitationIn the event this information is protected by the Federal Confidentiality of Alcohol and Drug Abuse Patient Records regulations: The Federal rules restrict any use of the information to criminally investigate or prosecute any alcohol or drug abuse patient.[facility] RehabilitationIn the event this information is protected by the Federal Confidentiality of Alcohol and Drug Abuse Patient Records regulations: The Federal rules restrict any use of the information to criminally investigate or prosecute any alcohol or drug abuse patient.[facility] RehabilitationIn the event this information is protected by the Federal Confidentiality of Alcohol and Drug Abuse Patient Records regulations: The Federal rules restrict any use of the information to criminally investigate or prosecute any alcohol or drug abuse patient.[facility] RehabilitationIn the event this information is protected by the Federal Confidentiality of Alcohol and Drug Abuse Patient Records regulations: The Federal rules restrict any use of the information to criminally investigate or prosecute any alcohol or drug abuse patient.[facility] RehabilitationIn the event this information is protected by the Federal Confidentiality of Alcohol and Drug Abuse Patient Records regulations: The Federal rules restrict any use of the information to criminally investigate or prosecute any alcohol or drug abuse patient.[facility] RehabilitationIn the event this information is protected by the Federal Confidentiality of Alcohol and Drug Abuse Patient Records regulations: The Federal rules restrict any use of the information to criminally investigate or prosecute any alcohol or drug abuse patient.[facility] RehabilitationIn the event this information is protected by the Federal Confidentiality of Alcohol and Drug Abuse Patient Records regulations: The Federal rules restrict any use of the information to criminally investigate or prosecute any alcohol or drug abuse patient.[facility] RehabilitationIn the event this information is protected by the Federal Confidentiality of Alcohol and Drug Abuse Patient Records regulations: The Federal rules restrict any use of the information to criminally investigate or prosecute any alcohol or drug abuse patient.[facility] RehabilitationIn the event this information is protected by the Federal Confidentiality of Alcohol and Drug Abuse Patient Records regulations: The Federal rules restrict any use of the information to criminally investigate or prosecute any alcohol or drug abuse patient.[facility] RehabilitationIn the event this information is protected by the Federal Confidentiality of Alcohol and Drug Abuse Patient Records regulations: The Federal rules restrict any use of the information to criminally investigate or prosecute any alcohol or drug abuse patient.[facility] RehabilitationIn the event this information is protected by the Federal Confidentiality of Alcohol and Drug Abuse Patient Records regulations: The Federal rules restrict any use of the information to criminally investigate or prosecute any alcohol or drug abuse patient.[facility] RehabilitationIn the event this information is protected by the Federal Confidentiality of Alcohol and Drug Abuse Patient Records regulations: The Federal rules restrict any use of the information to criminally investigate or prosecute any alcohol or drug abuse patient.[facility] RehabilitationIn the event this information is protected by the Federal Confidentiality of Alcohol and Drug Abuse Patient Records regulations: The Federal rules restrict any use of the information to criminally investigate or prosecute any alcohol or drug abuse patient.[facility] RehabilitationIn the event this information is protected by the Federal Confidentiality of Alcohol and Drug Abuse Patient Records regulations: The Federal rules restrict any use of the information to criminally investigate or prosecute any alcohol or drug abuse patient.[facility] RehabilitationIn the event this information is protected by the Federal Confidentiality of Alcohol and Drug Abuse Patient Records regulations: The Federal rules restrict any use of the information to criminally investigate or prosecute any alcohol or drug abuse patient.[facility] RehabilitationIn the event this information is protected by the Federal Confidentiality of Alcohol and Drug Abuse Patient Records regulations: The Federal rules restrict any use of the information to criminally investigate or prosecute any alcohol or drug abuse patient.[facility] RehabilitationIn the event this information is protected by the Federal Confidentiality of Alcohol and Drug Abuse Patient Records regulations: The Federal rules restrict any use of the information to criminally investigate or prosecute any alcohol or drug abuse patient.[facility] RehabilitationIn the event this information is protected by the Federal Confidentiality of Alcohol and Drug Abuse Patient Records regulations: The Federal rules restrict any use of the information to criminally investigate or prosecute any alcohol or drug abuse patient.[facility] RehabilitationIn the event this information is protected by the Federal Confidentiality of Alcohol and Drug Abuse Patient Records regulations: The Federal rules restrict any use of the information to criminally investigate or prosecute any alcohol or drug abuse patient.[facility] RehabilitationIn the event this information is protected by the Federal Confidentiality of Alcohol and Drug Abuse Patient Records regulations: The Federal rules restrict any use of the information to criminally investigate or prosecute any alcohol or drug abuse patient.[facility] RehabilitationIn the event this information is protected by the Federal Confidentiality of Alcohol and Drug Abuse Patient Records regulations: The Federal rules restrict any use of the information to criminally investigate or prosecute any alcohol or drug abuse patient.[facility] RehabilitationIn the event this information is protected by the Federal Confidentiality of Alcohol and Drug Abuse Patient Records regulations: The Federal rules restrict any use of the information to criminally investigate or prosecute any alcohol or drug abuse patient.[facility] RehabilitationIn the event this information is protected by the Federal Confidentiality of Alcohol and Drug Abuse Patient Records regulations: The Federal rules restrict any use of the information to criminally investigate or prosecute any alcohol or drug abuse patient.[facility] RehabilitationIn the event this information is protected by the Federal Confidentiality of Alcohol and Drug Abuse Patient Records regulations: The Federal rules restrict any use of the information to criminally investigate or prosecute any alcohol or drug abuse patient.[facility] RehabilitationIn the event this information is protected by the Federal Confidentiality of Alcohol and Drug Abuse Patient Records regulations: The Federal rules restrict any use of the information to criminally investigate or prosecute any alcohol or drug abuse patient.[facility] RehabilitationIn the event this information is protected by the Federal Confidentiality of Alcohol and Drug Abuse Patient Records regulations: The Federal rules restrict any use of the information to criminally investigate or prosecute any alcohol or drug abuse patient.[facility] RehabilitationIn the event this information is protected by the Federal Confidentiality of Alcohol and Drug Abuse Patient Records regulations: The Federal rules restrict any use of the information to criminally investigate or prosecute any alcohol or drug abuse patient.[facility] RehabilitationIn the event this information is protected by the Federal Confidentiality of Alcohol and Drug Abuse Patient Records regulations: The Federal rules restrict any use of the information to criminally investigate or prosecute any alcohol or drug abuse patient.[facility] RehabilitationIn the event this information is protected by the Federal Confidentiality of Alcohol and Drug Abuse Patient Records regulations: The Federal rules restrict any use of the information to criminally investigate or prosecute any alcohol or drug abuse patient.[facility] RehabilitationIn the event this information is protected by the Federal Confidentiality of Alcohol and Drug Abuse Patient Records regulations: The Federal rules restrict any use of the information to criminally investigate or prosecute any alcohol or drug abuse patient.[facility] RehabilitationIn the event this information is protected by the Federal Confidentiality of Alcohol and Drug Abuse Patient Records regulations: The Federal rules restrict any use of the information to criminally investigate or prosecute any alcohol or drug abuse patient.[facility] RehabilitationIn the event this information is protected by the Federal Confidentiality of Alcohol and Drug Abuse Patient Records regulations: The Federal rules restrict any use of the information to criminally investigate or prosecute any alcohol or drug abuse patient.[facility] RehabilitationIn the event this information is protected by the Federal Confidentiality of Alcohol and Drug Abuse Patient Records regulations: The Federal rules restrict any use of the information to criminally investigate or prosecute any alcohol or drug abuse patient.[facility] RehabilitationIn the event this information is protected by the Federal Confidentiality of Alcohol and Drug Abuse Patient Records regulations: The Federal rules restrict any use of the information to criminally investigate or prosecute any alcohol or drug abuse patient.[facility] RehabilitationIn the event this information is protected by the Federal Confidentiality of Alcohol and Drug Abuse Patient Records regulations: The Federal rules restrict any use of the information to criminally investigate or prosecute any alcohol or drug abuse patient.[facility] RehabilitationIn the event this information is protected by the Federal Confidentiality of Alcohol and Drug Abuse Patient Records regulations: The Federal rules restrict any use of the information to criminally investigate or prosecute any alcohol or drug abuse patient.[facility] RehabilitationIn the event this information is protected by the Federal Confidentiality of Alcohol and Drug Abuse Patient Records regulations: The Federal rules restrict any use of the information to criminally investigate or prosecute any alcohol or drug abuse patient.[facility] RehabilitationIn the event this information is protected by the Federal Confidentiality of Alcohol and Drug Abuse Patient Records regulations: The Federal rules restrict any use of the information to criminally investigate or prosecute any alcohol or drug abuse patient.[facility] RehabilitationIn the event this information is protected by the Federal Confidentiality of Alcohol and Drug Abuse Patient Records regulations: The Federal rules restrict any use of the information to criminally investigate or prosecute any alcohol or drug abuse patient.[facility] RehabilitationIn the event this information is protected by the Federal Confidentiality of Alcohol and Drug Abuse Patient Records regulations: The Federal rules restrict any use of the information to criminally investigate or prosecute any alcohol or drug abuse patient.[facility] RehabilitationIn the event this information is protected by the Federal Confidentiality of Alcohol and Drug Abuse Patient Records regulations: The Federal rules restrict any use of the information to criminally investigate or prosecute any alcohol or drug abuse patient.[facility] RehabilitationIn the event this information is protected by the Federal Confidentiality of Alcohol and Drug Abuse Patient Records regulations: The Federal rules restrict any use of the information to criminally investigate or prosecute any alcohol or drug abuse patient.[facility] RehabilitationIn the event this information is protected by the Federal Confidentiality of Alcohol and Drug Abuse Patient Records regulations: The Federal rules restrict any use of the information to criminally investigate or prosecute any alcohol or drug abuse patient.[facility] RehabilitationIn the event this information is protected by the Federal Confidentiality of Alcohol and Drug Abuse Patient Records regulations: The Federal rules restrict any use of the information to criminally investigate or prosecute any alcohol or drug abuse patient.[facility] RehabilitationIn the event this information is protected by the Federal Confidentiality of Alcohol and Drug Abuse Patient Records regulations: The Federal rules restrict any use of the information to criminally investigate or prosecute any alcohol or drug abuse patient.[facility] RehabilitationIn the event this information is protected by the Federal Confidentiality of Alcohol and Drug Abuse Patient Records regulations: The Federal rules restrict any use of the information to criminally investigate or prosecute any alcohol or drug abuse patient.[facility] RehabilitationIn the event this information is protected by the Federal Confidentiality of Alcohol and Drug Abuse Patient Records regulations: The Federal rules restrict any use of the information to criminally investigate or prosecute any alcohol or drug abuse patient.[facility] RehabilitationIn the event this information is protected by the Federal Confidentiality of Alcohol and Drug Abuse Patient Records regulations: The Federal rules restrict any use of the information to criminally investigate or prosecute any alcohol or drug abuse patient.[facility] RehabilitationIn the event this information is protected by the Federal Confidentiality of Alcohol and Drug Abuse Patient Records regulations: The Federal rules restrict any use of the information to criminally investigate or prosecute any alcohol or drug abuse patient.[facility] RehabilitationIn the event this information is protected by the Federal Confidentiality of Alcohol and Drug Abuse Patient Records regulations: The Federal rules restrict any use of the information to criminally investigate or prosecute any alcohol or drug abuse patient.[facility] RehabilitationIn the event this information is protected by the Federal Confidentiality of Alcohol and Drug Abuse Patient Records regulations: The Federal rules restrict any use of the information to criminally investigate or prosecute any alcohol or drug abuse patient.[facility] RehabilitationIn the event this information is protected by the Federal Confidentiality of Alcohol and Drug Abuse Patient Records regulations: The Federal rules restrict any use of the information to criminally investigate or prosecute any alcohol or drug abuse patient.[facility] RehabilitationIn the event this information is protected by the Federal Confidentiality of Alcohol and Drug Abuse Patient Records regulations: The Federal rules restrict any use of the information to criminally investigate or prosecute any alcohol or drug abuse patient.[facility] RehabilitationIn the event this information is protected by the Federal Confidentiality of Alcohol and Drug Abuse Patient Records regulations: The Federal rules restrict any use of the information to criminally investigate or prosecute any alcohol or drug abuse patient.[facility] RehabilitationIn the event this information is protected by the Federal Confidentiality of Alcohol and Drug Abuse Patient Records regulations: The Federal rules restrict any use of the information to criminally investigate or prosecute any alcohol or drug abuse patient.[facility] RehabilitationIn the event this information is protected by the Federal Confidentiality of Alcohol and Drug Abuse Patient Records regulations: The Federal rules restrict any use of the information to criminally investigate or prosecute any alcohol or drug abuse patient.[facility] RehabilitationIn the event this information is protected by the Federal Confidentiality of Alcohol and Drug Abuse Patient Records regulations: The Federal rules restrict any use of the information to criminally investigate or prosecute any alcohol or drug abuse patient.[facility] RehabilitationIn the event this information is protected by the Federal Confidentiality of Alcohol and Drug Abuse Patient Records regulations: The Federal rules restrict any use of the information to criminally investigate or prosecute any alcohol or drug abuse patient.[facility] RehabilitationIn the event this information is protected by the Federal Confidentiality of Alcohol and Drug Abuse Patient Records regulations: The Federal rules restrict any use of the information to criminally investigate or prosecute any alcohol or drug abuse patient.[facility] RehabilitationIn the event this information is protected by the Federal Confidentiality of Alcohol and Drug Abuse Patient Records regulations: The Federal rules restrict any use of the information to criminally investigate or prosecute any alcohol or drug abuse patient.[facility] RehabilitationIn the event this information is protected by the Federal Confidentiality of Alcohol and Drug Abuse Patient Records regulations: The Federal rules restrict any use of the information to criminally investigate or prosecute any alcohol or drug abuse patient.[facility] RehabilitationIn the event this information is protected by the Federal Confidentiality of Alcohol and Drug Abuse Patient Records regulations: The Federal rules restrict any use of the information to criminally investigate or prosecute any alcohol or drug abuse patient.[facility] RehabilitationIn the event this information is protected by the Federal Confidentiality of Alcohol and Drug Abuse Patient Records regulations: The Federal rules restrict any use of the information to criminally investigate or prosecute any alcohol or drug abuse patient.[facility] RehabilitationIn the event this information is protected by the Federal Confidentiality of Alcohol and Drug Abuse Patient Records regulations: The Federal rules restrict any use of the information to criminally investigate or prosecute any alcohol or drug abuse patient.[facility] RehabilitationIn the event this information is protected by the Federal Confidentiality of Alcohol and Drug Abuse Patient Records regulations: The Federal rules restrict any use of the information to criminally investigate or prosecute any alcohol or drug abuse patient.[facility] RehabilitationIn the event this information is protected by the Federal Confidentiality of Alcohol and Drug Abuse Patient Records regulations: The Federal rules restrict any use of the information to criminally investigate or prosecute any alcohol or drug abuse patient.[facility] RehabilitationIn the event this information is protected by the Federal Confidentiality of Alcohol and Drug Abuse Patient Records regulations: The Federal rules restrict any use of the information to criminally investigate or prosecute any alcohol or drug abuse patient.[facility] RehabilitationIn the event this information is protected by the Federal Confidentiality of Alcohol and Drug Abuse Patient Records regulations: The Federal rules restrict any use of the information to criminally investigate or prosecute any alcohol or drug abuse patient.[facility] RehabilitationIn the event this information is protected by the Federal Confidentiality of Alcohol and Drug Abuse Patient Records regulations: The Federal rules restrict any use of the information to criminally investigate or prosecute any alcohol or drug abuse patient.[facility] RehabilitationIn the event this information is protected by the Federal Confidentiality of Alcohol and Drug Abuse Patient Records regulations: The Federal rules restrict any use of the information to criminally investigate or prosecute any alcohol or drug abuse patient.[facility] RehabilitationIn the event this information is protected by the Federal Confidentiality of Alcohol and Drug Abuse Patient Records regulations: The Federal rules restrict any use of the information to criminally investigate or prosecute any alcohol or drug abuse patient.[facility] RehabilitationIn the event this information is protected by the Federal Confidentiality of Alcohol and Drug Abuse Patient Records regulations: The Federal rules restrict any use of the information to criminally investigate or prosecute any alcohol or drug abuse patient.[facility] RehabilitationIn the event this information is protected by the Federal Confidentiality of Alcohol and Drug Abuse Patient Records regulations: The Federal rules restrict any use of the information to criminally investigate or prosecute any alcohol or drug abuse patient.[facility] RehabilitationIn the event this information is protected by the Federal Confidentiality of Alcohol and Drug Abuse Patient Records regulations: The Federal rules restrict any use of the information to criminally investigate or prosecute any alcohol or drug abuse patient.[facility] RehabilitationIn the event this information is protected by the Federal Confidentiality of Alcohol and Drug Abuse Patient Records regulations: The Federal rules restrict any use of the information to criminally investigate or prosecute any alcohol or drug abuse patient.[facility] RehabilitationIn the event this information is protected by the Federal Confidentiality of Alcohol and Drug Abuse Patient Records regulations: The Federal rules restrict any use of the information to criminally investigate or prosecute any alcohol or drug abuse patient.[facility] RehabilitationIn the event this information is protected by the Federal Confidentiality of Alcohol and Drug Abuse Patient Records regulations: The Federal rules restrict any use of the information to criminally investigate or prosecute any alcohol or drug abuse patient.[facility] RehabilitationIn the event this information is protected by the Federal Confidentiality of Alcohol and Drug Abuse Patient Records regulations: The Federal rules restrict any use of the information to criminally investigate or prosecute any alcohol or drug abuse patient.[facility] RehabilitationIn the event this information is protected by the Federal Confidentiality of Alcohol and Drug Abuse Patient Records regulations: The Federal rules restrict any use of the information to criminally investigate or prosecute any alcohol or drug abuse patient.[facility] RehabilitationIn the event this information is protected by the Federal Confidentiality of Alcohol and Drug Abuse Patient Records regulations: The Federal rules restrict any use of the information to criminally investigate or prosecute any alcohol or drug abuse patient.[facility] RehabilitationIn the event this information is protected by the Federal Confidentiality of Alcohol and Drug Abuse Patient Records regulations: The Federal rules restrict any use of the information to criminally investigate or prosecute any alcohol or drug abuse patient.[facility] RehabilitationIn the event this information is protected by the Federal Confidentiality of Alcohol and Drug Abuse Patient Records regulations: The Federal rules restrict any use of the information to criminally investigate or prosecute any alcohol or drug abuse patient.[facility] RehabilitationIn the event this information is protected by the Federal Confidentiality of Alcohol and Drug Abuse Patient Records regulations: The Federal rules restrict any use of the information to criminally investigate or prosecute any alcohol or drug abuse patient.[facility] RehabilitationIn the event this information is protected by the Federal Confidentiality of Alcohol and Drug Abuse Patient Records regulations: The Federal rules restrict any use of the information to criminally investigate or prosecute any alcohol or drug abuse patient.[facility] RehabilitationIn the event this information is protected by the Federal Confidentiality of Alcohol and Drug Abuse Patient Records regulations: The Federal rules restrict any use of the information to criminally investigate or prosecute any alcohol or drug abuse patient.[facility] RehabilitationIn the event this information is protected by the Federal Confidentiality of Alcohol and Drug Abuse Patient Records regulations: The Federal rules restrict any use of the information to criminally investigate or prosecute any alcohol or drug abuse patient.[facility] RehabilitationIn the event this information is protected by the Federal Confidentiality of Alcohol and Drug Abuse Patient Records regulations: The Federal rules restrict any use of the information to criminally investigate or prosecute any alcohol or drug abuse patient.[facility] RehabilitationIn the event this information is protected by the Federal Confidentiality of Alcohol and Drug Abuse Patient Records regulations: The Federal rules restrict any use of the information to criminally investigate or prosecute any alcohol or drug abuse patient.[facility] RehabilitationIn the event this information is protected by the Federal Confidentiality of Alcohol and Drug Abuse Patient Records regulations: The Federal rules restrict any use of the information to criminally investigate or prosecute any alcohol or drug abuse patient.[facility] RehabilitationIn the event this information is protected by the Federal Confidentiality of Alcohol and Drug Abuse Patient Records regulations: The Federal rules restrict any use of the information to criminally investigate or prosecute any alcohol or drug abuse patient.[facility] RehabilitationIn the event this information is protected by the Federal Confidentiality of Alcohol and Drug Abuse Patient Records regulations: The Federal rules restrict any use of the information to criminally investigate or prosecute any alcohol or drug abuse patient.[facility] RehabilitationIn the event this information is protected by the Federal Confidentiality of Alcohol and Drug Abuse Patient Records regulations: The Federal rules restrict any use of the information to criminally investigate or prosecute any alcohol or drug abuse patient.[facility] RehabilitationIn the event this information is protected by the Federal Confidentiality of Alcohol and Drug Abuse Patient Records regulations: The Federal rules restrict any use of the information to criminally investigate or prosecute any alcohol or drug abuse patient.[facility] RehabilitationIn the event this information is protected by the Federal Confidentiality of Alcohol and Drug Abuse Patient Records regulations: The Federal rules restrict any use of the information to criminally investigate or prosecute any alcohol or drug abuse patient.[facility] RehabilitationIn the event this information is protected by the Federal Confidentiality of Alcohol and Drug Abuse Patient Records regulations: The Federal rules restrict any use of the information to criminally investigate or prosecute any alcohol or drug abuse patient.[facility] RehabilitationIn the event this information is protected by the Federal Confidentiality of Alcohol and Drug Abuse Patient Records regulations: The Federal rules restrict any use of the information to criminally investigate or prosecute any alcohol or drug abuse patient.[facility] RehabilitationIn the event this information is protected by the Federal Confidentiality of Alcohol and Drug Abuse Patient Records regulations: The Federal rules restrict any use of the information to criminally investigate or prosecute any alcohol or drug abuse patient.[facility] RehabilitationIn the event this information is protected by the Federal Confidentiality of Alcohol and Drug Abuse Patient Records regulations: The Federal rules restrict any use of the information to criminally investigate or prosecute any alcohol or drug abuse patient.[facility] RehabilitationIn the event this information is protected by the Federal Confidentiality of Alcohol and Drug Abuse Patient Records regulations: The Federal rules restrict any use of the information to criminally investigate or prosecute any alcohol or drug abuse patient.[facility] RehabilitationIn the event this information is protected by the Federal Confidentiality of Alcohol and Drug Abuse Patient Records regulations: The Federal rules restrict any use of the information to criminally investigate or prosecute any alcohol or drug abuse patient.[facility] RehabilitationIn the event this information is protected by the Federal Confidentiality of Alcohol and Drug Abuse Patient Records regulations: The Federal rules restrict any use of the information to criminally investigate or prosecute any alcohol or drug abuse patient.[facility] RehabilitationIn the event this information is protected by the Federal Confidentiality of Alcohol and Drug Abuse Patient Records regulations: The Federal rules restrict any use of the information to criminally investigate or prosecute any alcohol or drug abuse patient.[facility] RehabilitationIn the event this information is protected by the Federal Confidentiality of Alcohol and Drug Abuse Patient Records regulations: The Federal rules restrict any use of the information to criminally investigate or prosecute any alcohol or drug abuse patient.[facility] RehabilitationIn the event this information is protected by the Federal Confidentiality of Alcohol and Drug Abuse Patient Records regulations: The Federal rules restrict any use of the information to criminally investigate or prosecute any alcohol or drug abuse patient.[facility] RehabilitationIn the event this information is protected by the Federal Confidentiality of Alcohol and Drug Abuse Patient Records regulations: The Federal rules restrict any use of the information to criminally investigate or prosecute any alcohol or drug abuse patient.[facility] RehabilitationIn the event this information is protected by the Federal Confidentiality of Alcohol and Drug Abuse Patient Records regulations: The Federal rules restrict any use of the information to criminally investigate or prosecute any alcohol or drug abuse patient.[facility] RehabilitationIn the event this information is protected by the Federal Confidentiality of Alcohol and Drug Abuse Patient Records regulations: The Federal rules restrict any use of the information to criminally investigate or prosecute any alcohol or drug abuse patient.[facility] RehabilitationIn the event this information is protected by the Federal Confidentiality of Alcohol and Drug Abuse Patient Records regulations: The Federal rules restrict any use of the information to criminally investigate or prosecute any alcohol or drug abuse patient.[facility] RehabilitationIn the event this information is protected by the Federal Confidentiality of Alcohol and Drug Abuse Patient Records regulations: The Federal rules restrict any use of the information to criminally investigate or prosecute any alcohol or drug abuse patient.[facility] RehabilitationIn the event this information is protected by the Federal Confidentiality of Alcohol and Drug Abuse Patient Records regulations: The Federal rules restrict any use of the information to criminally investigate or prosecute any alcohol or drug abuse patient.[facility] RehabilitationIn the event this information is protected by the Federal Confidentiality of Alcohol and Drug Abuse Patient Records regulations: The Federal rules restrict any use of the information to criminally investigate or prosecute any alcohol or drug abuse patient.[facility] RehabilitationIn the event this information is protected by the Federal Confidentiality of Alcohol and Drug Abuse Patient Records regulations: The Federal rules restrict any use of the information to criminally investigate or prosecute any alcohol or drug abuse patient.[facility] RehabilitationIn the event this information is protected by the Federal Confidentiality of Alcohol and Drug Abuse Patient Records regulations: The Federal rules restrict any use of the information to criminally investigate or prosecute any alcohol or drug abuse patient.[facility] RehabilitationIn the event this information is protected by the Federal Confidentiality of Alcohol and Drug Abuse Patient Records regulations: The Federal rules restrict any use of the information to criminally investigate or prosecute any alcohol or drug abuse patient.[facility] RehabilitationIn the event this information is protected by the Federal Confidentiality of Alcohol and Drug Abuse Patient Records regulations: The Federal rules restrict any use of the information to criminally investigate or prosecute any alcohol or drug abuse patient.[facility] RehabilitationIn the event this information is protected by the Federal Confidentiality of Alcohol and Drug Abuse Patient Records regulations: The Federal rules restrict any use of the information to criminally investigate or prosecute any alcohol or drug abuse patient.[facility] RehabilitationIn the event this information is protected by the Federal Confidentiality of Alcohol and Drug Abuse Patient Records regulations: The Federal rules restrict any use of the information to criminally investigate or prosecute any alcohol or drug abuse patient.[facility] RehabilitationIn the event this information is protected by the Federal Confidentiality of Alcohol and Drug Abuse Patient Records regulations: The Federal rules restrict any use of the information to criminally investigate or prosecute any alcohol or drug abuse patient.[facility] RehabilitationIn the event this information is protected by the Federal Confidentiality of Alcohol and Drug Abuse Patient Records regulations: The Federal rules restrict any use of the information to criminally investigate or prosecute any alcohol or drug abuse patient.[facility] RehabilitationIn the event this information is protected by the Federal Confidentiality of Alcohol and Drug Abuse Patient Records regulations: The Federal rules restrict any use of the information to criminally investigate or prosecute any alcohol or drug abuse patient.[facility] RehabilitationIn the event this information is protected by the Federal Confidentiality of Alcohol and Drug Abuse Patient Records regulations: The Federal rules restrict any use of the information to criminally investigate or prosecute any alcohol or drug abuse patient.[facility] RehabilitationIn the event this information is protected by the Federal Confidentiality of Alcohol and Drug Abuse Patient Records regulations: The Federal rules restrict any use of the information to criminally investigate or prosecute any alcohol or drug abuse patient.[facility] RehabilitationIn the event this information is protected by the Federal Confidentiality of Alcohol and Drug Abuse Patient Records regulations: The Federal rules restrict any use of the information to criminally investigate or prosecute any alcohol or drug abuse patient.[facility] RehabilitationIn the event this information is protected by the Federal Confidentiality of Alcohol and Drug Abuse Patient Records regulations: The Federal rules restrict any use of the information to criminally investigate or prosecute any alcohol or drug abuse patient.[facility] RehabilitationIn the event this information is protected by the Federal Confidentiality of Alcohol and Drug Abuse Patient Records regulations: The Federal rules restrict any use of the information to criminally investigate or prosecute any alcohol or drug abuse patient.[facility] RehabilitationIn the event this information is protected by the Federal Confidentiality of Alcohol and Drug Abuse Patient Records regulations: The Federal rules restrict any use of the information to criminally investigate or prosecute any alcohol or drug abuse patient.[facility] RehabilitationIn the event this information is protected by the Federal Confidentiality of Alcohol and Drug Abuse Patient Records regulations: The Federal rules restrict any use of the information to criminally investigate or prosecute any alcohol or drug abuse patient.[facility] RehabilitationIn the event this information is protected by the Federal Confidentiality of Alcohol and Drug Abuse Patient Records regulations: The Federal rules restrict any use of the information to criminally investigate or prosecute any alcohol or drug abuse patient.[facility] RehabilitationIn the event this information is protected by the Federal Confidentiality of Alcohol and Drug Abuse Patient Records regulations: The Federal rules restrict any use of the information to criminally investigate or prosecute any alcohol or drug abuse patient.[facility] RehabilitationIn the event this information is protected by the Federal Confidentiality of Alcohol and Drug Abuse Patient Records regulations: The Federal rules restrict any use of the information to criminally investigate or prosecute any alcohol or drug abuse patient.[facility] RehabilitationIn the event this information is protected by the Federal Confidentiality of Alcohol and Drug Abuse Patient Records regulations: The Federal rules restrict any use of the information to criminally investigate or prosecute any alcohol or drug abuse patient.[facility] RehabilitationIn the event this information is protected by the Federal Confidentiality of Alcohol and Drug Abuse Patient Records regulations: The Federal rules restrict any use of the information to criminally investigate or prosecute any alcohol or drug abuse patient.[facility] RehabilitationIn the event this information is protected by the Federal Confidentiality of Alcohol and Drug Abuse Patient Records regulations: The Federal rules restrict any use of the information to criminally investigate or prosecute any alcohol or drug abuse patient.[facility] RehabilitationIn the event this information is protected by the Federal Confidentiality of Alcohol and Drug Abuse Patient Records regulations: The Federal rules restrict any use of the information to criminally investigate or prosecute any alcohol or drug abuse patient.[facility] RehabilitationIn the event this information is protected by the Federal Confidentiality of Alcohol and Drug Abuse Patient Records regulations: The Federal rules restrict any use of the information to criminally investigate or prosecute any alcohol or drug abuse patient.[facility] RehabilitationIn the event this information is protected by the Federal Confidentiality of Alcohol and Drug Abuse Patient Records regulations: The Federal rules restrict any use of the information to criminally investigate or prosecute any alcohol or drug abuse patient.[facility] RehabilitationIn the event this information is protected by the Federal Confidentiality of Alcohol and Drug Abuse Patient Records regulations: The Federal rules restrict any use of the information to criminally investigate or prosecute any alcohol or drug abuse patient.[facility] RehabilitationIn the event this information is protected by the Federal Confidentiality of Alcohol and Drug Abuse Patient Records regulations: The Federal rules restrict any use of the information to criminally investigate or prosecute any alcohol or drug abuse patient.[facility] RehabilitationIn the event this information is protected by the Federal Confidentiality of Alcohol and Drug Abuse Patient Records regulations: The Federal rules restrict any use of the information to criminally investigate or prosecute any alcohol or drug abuse patient.[facility] RehabilitationIn the event this information is protected by the Federal Confidentiality of Alcohol and Drug Abuse Patient Records regulations: The Federal rules restrict any use of the information to criminally investigate or prosecute any alcohol or drug abuse patient.[facility] RehabilitationIn the event this information is protected by the Federal Confidentiality of Alcohol and Drug Abuse Patient Records regulations: The Federal rules restrict any use of the information to criminally investigate or prosecute any alcohol or drug abuse patient.[facility] RehabilitationIn the event this information is protected by the Federal Confidentiality of Alcohol and Drug Abuse Patient Records regulations: The Federal rules restrict any use of the information to criminally investigate or prosecute any alcohol or drug abuse patient.[facility] RehabilitationIn the event this information is protected by the Federal Confidentiality of Alcohol and Drug Abuse Patient Records regulations: The Federal rules restrict any use of the information to criminally investigate or prosecute any alcohol or drug abuse patient.[facility] RehabilitationIn the event this information is protected by the Federal Confidentiality of Alcohol and Drug Abuse Patient Records regulations: The Federal rules restrict any use of the information to criminally investigate or prosecute any alcohol or drug abuse patient.[facility] RehabilitationIn the event this information is protected by the Federal Confidentiality of Alcohol and Drug Abuse Patient Records regulations: The Federal rules restrict any use of the information to criminally investigate or prosecute any alcohol or drug abuse patient.[facility] Care Teams (unrecognized sec tion and content) Calibrator Barometers Relationship Specialty Start Date End Date Christina Azul MD [address] [id number] PCP - General Family Practice 07/03/21 Sofie Diana MD [address] [place] [address] Primary Staff Physician Cardiology 07/03/21 Verito Whelan MD [address] [place] [address] Referring Pulmonary Disease 10/04/21 Calibrator Barometers Relationship Specialty Start Date End Date Christina Azul MD [address] [place] [address] PCP - General Family Practice 07/03/21 Sofie Diana MD [address] [place] [address] Primary Staff Physician Cardiology 07/03/21 Verito Whelan MD [address] [place] [address] Referring Pulmonary Disease 10/04/21 Calibrator Barometers Relationship Specialty Start Date End Date Christina Azul MD [address] [place] [address] PCP - General [facility] Practice 07/03/21 Sofie Diana MD [address] [place] [address] Primary Staff Physician Cardiology 07/03/21 Verito Whelan MD [address] [place] [address] Referring Pulmonary Disease 10/04/21 Calibrator Barometers Relationship Specialty Start Date End Date Christina Azul MD [address] [place] [address] PCP - General Family Practice 07/03/21 Sofie Diana MD [address] [place] [address] Primary Staff Physician Cardiology 07/03/21 Verito Whelan MD [address] [place] [address] Referring Pulmonary Disease 10/04/21 Pito Grigsby MD [address] [place] [address] Physician Hematology/Oncology 10/25/21 Brent Miller, STATION MECHANIC HELPER.RN DERMATOLOGY [address] [place] [address] Nurse Practitioner Hematology/Oncology 10/25/21 Denita Rai, KERRY [address] [place] [address] Specialty Admitting Representative Hematology/Oncology 10/25/21 Calibrator Barometers Relationship Specialty Start Date End Date Christina Azul MD [address] [place] [address] PCP - General Family Practice 07/03/21 Sofie Diana MD [address] [place] [address] Primary Staff Physician Cardiology 07/03/21 Verito Whelan MD [address] [place] [address] Referring Pulmonary Disease 10/04/21 Pito Grigsby MD [address] [place] [address] Physician Hematology/Oncology 10/25/21 Brent Miller APRN.[facility] [address] [place] [address] Nurse Practitioner Hematology/Oncology 10/25/21 Denita Rai, KERRY [address] [place] [address] Specialty Admitting Representative Hematology/Oncology 10/25/21 Calibrator Barometers Relationship Specialty Start Date End Date Christina Azul MD [address] [place] [address] PCP - General Family Practice 07/03/21 Sofie Diana MD [address] [place] [address] Primary Staff Physician Cardiology 07/03/21 Verito Whelan MD [address] [place] [address] Referring Pulmonary Disease 10/04/21 Calibrator Barometers Relationship Specialty Start Date End Date Christina Azul MD [address] [place] [address] PCP - General Family Practice 07/03/21 Sofie Diana MD [address] [place] [address] Primary Staff Physician Cardiology 07/03/21 Verito Whelan MD [address] [place] [address] Referring Pulmonary Disease 10/04/21 Pito Grigsby MD [address] [place] [address] Physician Hematology/Oncology 10/25/21 Brent Miller, STATION MECHANIC HELPER.RN DERMATOLOGY [address] [place] [address] Nurse Practitioner Hematology/Oncology 10/25/21 Denita Rai, KERRY [address] [place] [address] Specialty Admitting Representative Hematology/Oncology 10/25/21 Calibrator Barometers Relationship Specialty Start Date End Date Christina Azul MD [address] [id number] PCP - General Family Practice 07/03/21 Sofie Diana MD [address] [place] [address] Primary Staff Physician Cardiology 07/03/21 Verito Whelan MD [address] [place] [address] Referring Pulmonary Disease 10/04/21 Pito Grigsby MD [address] [place] [address] Physician Hematology/Oncology 10/25/21 Brent Miller, STATION MECHANIC HELPER.RN DERMATOLOGY [address] [place] [address] Nurse Practitioner Hematology/Oncology 10/25/21 Denita Rai, RN [address] [facility] [address] [place] [address] Specialty Admitting Representative Hematology/Oncology 10/25/21 Calibrator Barometers Relationship Specialty Start Date End Date Christina Azul MD [address] [place] [address] PCP - General Family Practice 07/03/21 Sofie Diana MD [address] [place] [address] Primary Staff Physician Cardiology 07/03/21 Verito Whelan MD [address] [place] [address] Referring Pulmonary Disease 10/04/21 Pito Grigsby MD [address] [facility] [place] [address] Physician Hematology/Oncology 10/25/21 Brent Miller, STATION MECHANIC HELPER.RN DERMATOLOGY [address] [facility] [place] [address] Nurse Practitioner Hematology/Oncology 10/25/21 Denita Rai, KERRY [address] [facility] [place] [address] Specialty Admitting Representative Hematology/Oncology 10/25/21 Calibrator Barometers Relationship Specialty Start Date End Date Christina Azul MD [address] [place] [address] PCP - General Family Practice 07/03/21 Sofie Diana MD [address] [place] [address] Primary Staff Physician Cardiology 07/03/21 Verito Whelan MD [address] [place] [address] Referring Pulmonary Disease 10/04/21 Pito Grigsby MD [address] [facility] [place] [address] Physician Hematology/Oncology 10/25/21 Brent Miller, STATION MECHANIC HELPER.RN DERMATOLOGY [address] [facility] [place] [address] Nurse Practitioner Hematology/Oncology 10/25/21 Denita Rai, RN [address] [facility] [place] [address] Specialty Admitting Representative Hematology/Oncology 10/25/21 Calibrator Barometers Relationship Specialty Start Date End Date Christina Azul MD [address] [place] [address] PCP - General Family Practice 07/03/21 Sofie Diana MD [address] [place] [address] Primary Staff Physician Cardiology 07/03/21 Verito Whelan MD [address] [place] [address] Referring Pulmonary Disease 10/04/21 Pito Grigsby MD [address] [facility] [place] [address] Physician Hematology/Oncology 10/25/21 Brent Miller, STATION MECHANIC HELPER.RN DERMATOLOGY [address] [facility] [place] [address] Nurse Practitioner Hematology/Oncology 10/25/21 Denita Rai, RN [address] [facility] [place] [address] Specialty Admitting Representative Hematology/Oncology 10/25/21 Calibrator Barometers Relationship Specialty Start Date End Date Christina Azul MD [address] [place] [address] PCP - General Family Practice 07/03/21 Sofie Diana MD [address] [place] [address] Primary Staff Physician Cardiology 07/03/21 Verito Whelan MD [address] [place], [place] [id number] Referring Pulmonary Disease 10/04/21 Pito Grigsby MD [address] [facility] [place] [address] Physician Hematology/Oncology 10/25/21 Brent Miller, STATION MECHANIC HELPER.RN DERMATOLOGY [address] [facility] [place] [address] Nurse Practitioner Hematology/Oncology 10/25/21 Denita Rai, KERRY [address] [facility] [place] [address] Specialty Admitting Representative Hematology/Oncology 10/25/21 Calibrator Barometers Relationship Specialty Start Date End Date Christina Azul MD [address] [place] [address] PCP - General Family Practice 07/03/21 Sofie Diana MD [address] [place] [address] Primary Staff Physician Cardiology 07/03/21 [place]ito Whelan MD [address] [place] [address] Referring Pulmonary Disease 10/04/21 Pito Grigsby MD [address] [facility] [place] [address] Physician Hematology/Oncology 10/25/21 Brent Miller, STATION MECHANIC HELPER.RN DERMATOLOGY [address] [facility] [place] [address] Nurse Practitioner Hematology/Oncology 10/25/21 Denita Rai, KERRY [address] [place] [address] [place] [address] Specialty Admitting Representative Hematology/Oncology 10/25/21 Calibrator Barometers Relationship Specialty Start Date End Date Christina Azul MD [address] [place] [address] PCP - General Family Practice 07/03/21 Sofie Diana MD [address] [place] [address] Primary Staff Physician Cardiology 07/03/21 Verito Whelan MD [address] [place] [address] Referring Pulmonary Disease 10/04/21 Pito Grigsby MD [address] [facility] [place] [address] Physician Hematology/Oncology 10/25/21 Brent Miller, STATION MECHANIC HELPER.RN DERMATOLOGY [address] [facility] [place] [address] Nurse Practitioner Hematology/Oncology 10/25/21 Denita Rai, KERRY [address] [facility] [place] [address] Specialty Admitting Representative Hematology/Oncology 10/25/21 Calibrator Barometers Relationship Specialty Start Date End Date Christina Azul MD [address] [place] [address] PCP - General Family Practice 07/03/21 Sofie Diana MD [address] [place] [address] Primary Staff Physician Cardiology 07/03/21 Verito Whelan MD [address] [place] [address] Referring Pulmonary Disease 10/04/21 Pito Grigsby MD [address] [place] [address] [place] [address] Physician Hematology/Oncology 10/25/21 Brent Miller, STATION MECHANIC HELPER.RN DERMATOLOGY [address] [facility] [place] [address] Nurse Practitioner Hematology/Oncology 10/25/21 Denita Rai, RN [address] [facility] [place] [address] Specialty Admitting Representative Hematology/Oncology 10/25/21 Calibrator Barometers Relationship Specialty Start Date End Date Christina Azul MD [address] [place] [id number] PCP - General Family Practice 07/03/21 Sofei Diana MD [address] [place] [address] Primary Staff Physician Cardiology 07/03/21 Verito Whelan MD [address] [place] [address] Referring Pulmonary Disease 10/04/21 Pito Grigsby MD [address] [facility] [place] [address] Physician Hematology/Oncology 10/25/21 Brent Miller, STATION MECHANIC HELPER.[address] [place] [address] Nurse Practitioner Hematology/Oncology 10/25/21 Denita Rai, KERRY [address] [place] [address] [place] [address] Specialty Admitting Representative Hematology/Oncology 10/25/21 Calibrator Barometers Relationship Specialty Start Date End Date Christina Azul MD [address] [place] [address] PCP - General Family Practice 07/03/21 Sofie Diana MD [address] [place] [address] Primary Staff Physician Cardiology 07/03/21 Verito Whelan MD [address] [place] [address] Referring Pulmonary Disease 10/04/21 Pito Grigsby MD [address] [place] [address] [place] [address] Physician Hematology/Oncology 10/25/21 Brent Miller, STATION MECHANIC HELPER.[address] [place] [place] [address] Nurse Practitioner Hematology/Oncology 10/25/21 Denita Rai, KERRY [address] [place] [address] [place] [address] Specialty Admitting Representative Hematology/Oncology 10/25/21 Calibrator Barometers Relationship Specialty Start Date End Date Christina Azul MD [address] [place] [address] PCP - General Family Practice 07/03/21 Sofie Diana MD [address] [place], [place] [id number] Primary Staff Physician Cardiology 07/03/21 Verito Whelan MD [address] [place], [place] [id number] Referring Pulmonary Disease 10/04/21 Pito Grigsby MD [address] [facility] [place] [address] Physician Hematology/Oncology 10/25/21 Brent Miller, STATION MECHANIC HELPER.RN DERMATOLOGY [address] [facility] [place] [address] Nurse Practitioner Hematology/Oncology 10/25/21 Denita Rai, KERRY [address] [facility] [place] [address] Specialty Admitting Representative Hematology/Oncology 10/25/21 Calibrator Barometers Relationship Specialty Start Date End Date Christina Azul MD [address] [place] [address] PCP - General [facility] Practice 07/03/21 Sofie Diana MD [address] [place] [address] Primary Staff Physician Cardiology 07/03/21 Verito Whelan MD [address] [place] [address] Referring Pulmonary Disease 10/04/21 Pito Grigsby MD [address] [facility] [place] [address] Physician Hematology/Oncology 10/25/21 Brent Miller, STATION MECHANIC HELPER.RN DERMATOLOGY [address] [place] [address] [place] [address] Nurse Practitioner Hematology/Oncology 10/25/21 Denita Rai, KERRY [address] [place] [address] [place] [address] Specialty Admitting Representative Hematology/Oncology 10/25/21 Calibrator Barometers Relationship Specialty Start Date End Date Christina Azul MD [address] [place] [address] PCP - General Family Practice 07/03/21 Sofie Diana MD [address] [place], [place] [id number] Primary Staff Physician Cardiology 07/03/21 Verito Whelan MD [address] [place], [place] [id number] Referring Pulmonary Disease 10/04/21 Pito Grigsby MD [address] [facility] [place] [address] Physician Hematology/Oncology 10/25/21 Brent Miller, OZZIE.[address] [place] [place] [address] Nurse Practitioner Hematology/Oncology 10/25/21 Denita Rai, KERRY [address] [place] [address] [place] [address] Specialty Admitting Representative Hematology/Oncology 10/25/21 Calibrator Barometers Relationship Specialty Start Date End Date Christina Azul MD [address] [place] [address] PCP - General Family Practice 07/03/21 Sofie Diana MD [address] [place] [address] Primary Staff Physician Cardiology 07/03/21 Verito Whelan MD [address] [place] [address] Referring Pulmonary Disease 10/04/21 Pito Grigsby MD [address] [facility] [place] [address] Physician Hematology/Oncology 10/25/21 Brent Miller, STATION MECHANIC HELPER.RN DERMATOLOGY [address] [facility] [place] [address] Nurse Practitioner Hematology/Oncology 10/25/21 Denita Rai, KERRY [address] [place] [address] [place] [address] Specialty Admitting Representative Hematology/Oncology 10/25/21 Calibrator Barometers Relationship Specialty Start Date End Date Christina Azul MD [address] [place] [address] PCP - General Family Practice 07/03/21 Sofie Diana MD [address] [place] [address] Primary Staff Physician Cardiology 07/03/21 Verito Whelan MD [address] [place] [address] Referring Pulmonary Disease 10/04/21 Pito Grigsby MD [address] [facility] [place] [address] Physician Hematology/Oncology 10/25/21 Brent Miller, STATION MECHANIC HELPER.RN DERMATOLOGY [address] [facility] [place] [address] Nurse Practitioner Hematology/Oncology 10/25/21 Denita Rai, KERRY [address] [facility] [place] [address] Specialty Admitting Representative Hematology/Oncology 10/25/21 Calibrator Barometers Relationship Specialty Start Date End Date Christina Azul MD [address] [place] [address] PCP - General Family Practice 07/03/21 Sofie Diana MD [address] [place] [address] Primary Staff Physician Cardiology 07/03/21 Verito Whelan MD [address] [place] [address] Referring Pulmonary Disease 10/04/21 Pito Grigsby MD [address] [facility] [place] [address] Physician Hematology/Oncology 10/25/21 Brent Miller, STATION MECHANIC HELPER.RN DERMATOLOGY [address] [facility] [place] [address] Nurse Practitioner Hematology/Oncology 10/25/21 Denita Rai, KERRY [address] [facility] [place] [address] Specialty Admitting Representative Hematology/Oncology 10/25/21 Calibrator Barometers Relationship Specialty Start Date End Date Christina Azul MD [address] [place] [id number] PCP - General Family Practice 07/03/21 Sofie Diana MD [address] [place] [address] Primary Staff Physician Cardiology 07/03/21 Verito Whelan MD [address] [place] [address] Referring Pulmonary Disease 10/04/21 Pito Grigsby MD [address] [facility] [place] [address] Physician Hematology/Oncology 10/25/21 Brent Miller, STATION MECHANIC HELPER.RN DERMATOLOGY [address] [facility] [place] [address] Nurse Practitioner Hematology/Oncology 10/25/21 Denita Rai, RN [address] [facility] [place] [address] Specialty Admitting Representative Hematology/Oncology 10/25/21 Calibrator Barometers Relationship Specialty Start Date End Date Christina Azul MD [address] [place] [address] PCP - General Family Practice 07/03/21 Sofie Diana MD [address] [place] [address] Primary Staff Physician Cardiology 07/03/21 Verito Whelan MD [address] [place] [address] Referring Pulmonary Disease 10/04/21 Pito Grigsby MD [address] [facility] [place] [address] Physician Hematology/Oncology 10/25/21 Brent Miller, STATION MECHANIC HELPER.RN DERMATOLOGY [address] [facility] [place] [address] Nurse Practitioner Hematology/Oncology 10/25/21 Denita Rai, RN [address] [facility] [place] [address] Specialty Admitting Representative Hematology/Oncology 10/25/21 Calibrator Barometers Relationship Specialty Start Date End Date Christina Azul MD [address] [place] [address] PCP - General Family Practice 07/03/21 Sofie Diana MD [address] [place] [address] Primary Staff Physician Cardiology 07/03/21 Verito Whelan MD [address] [place] [address] Referring Pulmonary Disease 10/04/21 Pito Grigsby MD [address] [facility] [place] [address] Physician Hematology/Oncology 10/25/21 Brent Miller APRN.RN DERMATOLOGY [address] [facility] [place] [address] Nurse Practitioner Hematology/Oncology 10/25/21 Denita Rai, RN [address] [facility] [place] [address] Specialty Admitting Representative Hematology/Oncology 10/25/21 Calibrator Barometers Relationship Specialty Start Date End Date Christina Azul MD [address] [place] [id number] PCP - General Family Practice 07/03/21 Sofie Diana MD [address] [place] [address] Primary Staff Physician Cardiology 07/03/21 Verito Whelan MD [address] [place] [address] Referring Pulmonary Disease 10/04/21 Pito Grigsby MD [address] [facility] [place] [address] Physician Hematology/Oncology 10/25/21 Brent Miller, STATION MECHANIC HELPER.RN DERMATOLOGY [address] [facility] [place] [address] Nurse Practitioner Hematology/Oncology 10/25/21 Denita Rai, RN [address] [facility] [place] [address] Specialty Admitting Representative Hematology/Oncology 10/25/21 Team Status: Inactive Member Role Status Dates Cristy Swann PA-C Attending Provider Active PHYSICIAN NO FAMILY Primary Care Provider Active Team Status: Active Member Role Status Dates PHYSICIAN NO FAMILY Primary Care Provider Active Calibrator Barometers Relationship Specialty Start Date End Date Christina Azul MD [address] [place] [address] PCP - General Family Practice 07/03/21 Sofie Diana MD [address] [place] [address] Primary Staff Physician Cardiology 07/03/21 Verito Whelan MD [address] [place] [address] Referring Pulmonary Disease 10/04/21 Pito Grigsby MD [address] [facility] [place] [address] Physician Hematology/Oncology 10/25/21 Brent Miller, STATION MECHANIC HELPER.RN DERMATOLOGY [address] [facility] [place] [address] Nurse Practitioner Hematology/Oncology 10/25/21 Denita Rai, RN [address] [facility] [place] [address] Specialty Admitting Representative Hematology/Oncology 10/25/21 Calibrator Barometers Relationship Specialty Start Date End Date Christina Azul MD [address] [place] [address] PCP - General Family Practice 07/03/21 Sofie Diana MD [address] [place] [address] Primary Staff Physician Cardiology 07/03/21 Verito Whelan MD [address] [place] [address] Referring Pulmonary Disease 10/04/21 Pito Grigsby MD [address] [facility] [place] [address] Physician Hematology/Oncology 10/25/21 Brent Miller APRN.RN DERMATOLOGY [address] [facility] [place] [address] Nurse Practitioner Hematology/Oncology 10/25/21 Denita Rai, KERRY [address] [facility] [place] [address] Specialty Admitting Representative Hematology/Oncology 10/25/21 Calibrator Barometers Relationship Specialty Start Date End Date Christina Azul MD [address] [place] [id number] PCP - General Family Practice 07/03/21 Sofie Diana MD [address] [place] [address] Primary Staff Physician Cardiology 07/03/21 Verito Whelan MD [address] [place] [address] Referring Pulmonary Disease 10/04/21 Pito Grigsby MD [address] [facility] [place] [address] Physician Hematology/Oncology 10/25/21 Brent Miller, STATION MECHANIC HELPER.RN DERMATOLOGY [address] [facility] [place] [address] Nurse Practitioner Hematology/Oncology 10/25/21 Denita Rai, KERRY [address] [facility] [place] [address] Specialty Admitting Representative Hematology/Oncology 10/25/21 Calibrator Barometers Relationship Specialty Start Date End Date Christina Azul MD [address] [place] [address] PCP - General Family Practice 07/03/21 Sofie Diana MD [address] [place] [address] Primary Staff Physician Cardiology 07/03/21 Verito Whelan MD [address] [place] [address] Referring Pulmonary Disease 10/04/21 Pito Grigsby MD [address] [facility] [place] [address] Physician Hematology/Oncology 10/25/21 Brent Miller, STATION MECHANIC HELPER.RN DERMATOLOGY [address] [facility] [place] [address] Nurse Practitioner Hematology/Oncology 10/25/21 Denita Rai, KERRY [address] [facility] [place] [address] Specialty Admitting Representative Hematology/Oncology 10/25/21 Calibrator Barometers Relationship Specialty Start Date End Date Christina Azul MD [address] [place] [address] PCP - General Family Medicine 07/03/21 Sofie Diana MD [address] [place] [address] Primary Staff Physician Cardiology 07/03/21 Verito Whelan MD [address] [place] [address] Referring Pulmonary Disease 10/04/21 Pito Grigsby MD [address] [facility] [place] [address] Physician Hematology/Oncology 10/25/21 Brent Miller, STATION MECHANIC HELPER.RN DERMATOLOGY [address] [facility] [place] [address] Nurse Practitioner Hematology/Oncology 10/25/21 Denita Rai, KERRY [address] [facility] [place] [address] Specialty Admitting Representative Hematology/Oncology 10/25/21 Calibrator Barometers Relationship Specialty Start Date End Date Christina Azul MD [address] [place] [address] PCP - General Family Medicine 07/03/21 Sofie Diana MD [address] [place] [address] Primary Staff Physician Cardiology 07/03/21 Verito Whelan MD [address] [place] [address] Referring Pulmonary Disease 10/04/21 Pito Grigsby MD [address] [facility] [place] [address] Physician Hematology/Oncology 10/25/21 Brent Miller, STATION MECHANIC HELPER.RN DERMATOLOGY [address] [facility] [place] [address] Nurse Practitioner Hematology/Oncology 10/25/21 Denita Rai, KERRY [address] [facility] [place] [address] Specialty Admitting Representative Hematology/Oncology 10/25/21 Calibrator Barometers Relationship Specialty Start Date End Date Christina Azul MD [address] [place] [address] PCP - General Family Medicine 07/03/21 Sofie Diana MD [address] [place] [address] Primary Staff Physician Cardiology 07/03/21 Verito Whelan MD [address] [place] [address] Referring Pulmonary Disease 10/04/21 Pito Grigsby MD [address] [facility] [place] [address] Physician Hematology/Oncology 10/25/21 Brent Miller, STATION MECHANIC HELPER.RN DERMATOLOGY [address] [facility] [place] [address] Nurse Practitioner Hematology/Oncology 10/25/21 Denita Rai, KERRY [address] [facility] [place] [address] Specialty Admitting Representative Hematology/Oncology 10/25/21 Calibrator Barometers Relationship Specialty Start Date End Date Christina Azul MD [address] [place] [address] PCP - General Family Medicine 07/03/21 Sofie Diana MD [address] [place] [address] Primary Staff Physician Cardiology 07/03/21 Verito Whelan MD [address] [place] [address] Referring Pulmonary Disease 10/04/21 Pito Grigsby MD [address] [place] [address] [place] [address] Physician Hematology/Oncology 10/25/21 Brent Miller, STATION MECHANIC HELPER.RN DERMATOLOGY [address] [facility] [place] [address] Nurse Practitioner Hematology/Oncology 10/25/21 Denita Rai, KERRY [address] [place] [address] [place] [address] Specialty Admitting Representative Hematology/Oncology 10/25/21 Calibrator Barometers Relationship Specialty Start Date End Date Christina Azul MD [address] [place] [address] PCP - General Family Medicine 07/03/21 Sofie Diana MD [address] [place] [address] Primary Staff Physician Cardiology 07/03/21 Verito Whelan MD [address] [place] [address] Referring Pulmonary Disease 10/04/21 Pito Grigsby MD [address] [facility] [place] [address] Physician Hematology/Oncology 10/25/21 Brent Miller, STATION MECHANIC HELPER.RN DERMATOLOGY [address] [facility] [place] [address] Nurse Practitioner Hematology/Oncology 10/25/21 Denita Rai, KERRY [address] [facility] [place] [address] Specialty Admitting Representative Hematology/Oncology 10/25/21 Calibrator Barometers Relationship Specialty Start Date End Date Christina Azul MD [address] [place] [address] PCP - General Family Medicine 07/03/21 Sofie Diana MD [address] [place] [address] Primary Staff Physician Cardiology 07/03/21 Verito Whelan MD [address] [place], [place] [id number] Referring Pulmonary Disease 10/04/21 Pito Grigsby MD [address] [facility] [place] [address] Physician Hematology/Oncology 10/25/21 Brent Miller, STATION MECHANIC HELPER.RN DERMATOLOGY [address] [facility] [place] [address] Nurse Practitioner Hematology/Oncology 10/25/21 Denita Rai, KERRY [address] [facility] [place] [address] Specialty Admitting Representative Hematology/Oncology 10/25/21 Calibrator Barometers Relationship Specialty Start Date End Date Christina Azul MD [address] [place] [id number] PCP - General Family Medicine 07/03/21 Sofie Diana MD [address] [place] [address] Primary Staff Physician Cardiology 07/03/21 Verito Whelan MD [address] [place] [address] Referring Pulmonary Disease 10/04/21 Pito Grigsby MD [address] [facility] [place] [address] Physician Hematology/Oncology 10/25/21 Brent Miller, STATION MECHANIC HELPER.[address] [place] [address] Nurse Practitioner Hematology/Oncology 10/25/21 Denita Rai, RN [address] [place] [address] [place] [address] Specialty Admitting Representative Hematology/Oncology 10/25/21 Calibrator Barometers Relationship Specialty Start Date End Date Christina Azul MD [address] [place] [address] PCP - General Family Medicine 07/03/21 Sofie Diana MD [address] [place] [address] Primary Staff Physician Cardiology 07/03/21 Verito Whelan MD [address] [place] [address] Referring Pulmonary Disease 10/04/21 Pito Grigsby MD [address] [facility] [place] [address] Physician Hematology/Oncology 10/25/21 Brent Miller, STATION MECHANIC HELPER.RN DERMATOLOGY [address] [place] [address] [place] [address] Nurse Practitioner Hematology/Oncology 10/25/21 Denita Rai, KERRY [address] [facility] [place] [address] Specialty Admitting Representative Hematology/Oncology 10/25/21 Calibrator Barometers Relationship Specialty Start Date End Date Christina Azul MD [address] [place] [address] PCP - General Family Medicine 07/03/21 Sofie Diana MD [address] [place] [address] Primary Staff Physician Cardiology 07/03/21 Verito Whelan MD [address] [place] [address] Referring Pulmonary Disease 10/04/21 Pito Grigsby MD [address] [facility] [place] [address] Physician Hematology/Oncology 10/25/21 Brent Miller, STATION MECHANIC HELPER.[facility] [address] [facility] [place] [address] Nurse Practitioner Hematology/Oncology 10/25/21 Denita Rai, RN [address] [place] [address] [place] [address] Specialty Admitting Representative Hematology/Oncology 10/25/21 Calibrator Barometers Relationship Specialty Start Date End Date Christina Azul MD [address] [place] [id number] PCP - General Family Medicine 07/03/21 Sofie Diana MD [address] [place] [address] Primary Staff Physician Cardiology 07/03/21 Verito Whelan MD [address] [place] [address] Referring Pulmonary Disease 10/04/21 Pito Grigsby MD [address] [facility] [address] [place] [address] Physician Hematology/Oncology 10/25/21 Brent Miller, STATION MECHANIC HELPER.RN DERMATOLOGY [address] [facility] [place] [address] Nurse Practitioner Hematology/Oncology 10/25/21 Denita Rai, RN [address] [facility] [place] [address] Specialty Admitting Representative Hematology/Oncology 10/25/21 Calibrator Barometers Relationship Specialty Start Date End Date Christina Azul MD [address] [place] [address] PCP - General Family Medicine 07/03/21 Sofie Diana MD [address] [place] [address] Primary Staff Physician Cardiology 07/03/21 Verito Whelan MD [address] [place] [address] Referring Pulmonary Disease 10/04/21 Pito Grigsby MD [address] [facility] [place] [address] Physician Hematology/Oncology 10/25/21 Brent Miller, STATION MECHANIC HELPER.RN DERMATOLOGY [address] [facility] [place] [address] Nurse Practitioner Hematology/Oncology 10/25/21 Denita Rai, KERRY [address] [facility] [place] [address] Specialty Admitting Representative Hematology/Oncology 10/25/21 Calibrator Barometers Relationship Specialty Start Date End Date Christina Azul MD [address] [place] [address] PCP - General Family Medicine 07/03/21 Sofie Diana MD [address] [place] [address] Primary Staff Physician Cardiology 07/03/21 Verito Whelan MD [address] [place] [address] Referring Pulmonary Disease 10/04/21 Pito Grigsby MD [address] [facility] [address] [place] [address] Physician Hematology/Oncology 10/25/21 Brent Miller, STATION MECHANIC HELPER.RN DERMATOLOGY [address] [facility] [place] [address] Nurse Practitioner Hematology/Oncology 10/25/21 Denita Rai, RN [address] [facility] [place] [address] Specialty Admitting Representative Hematology/Oncology 10/25/21 Calibrator Barometers Relationship Specialty Start Date End Date Christina Azul MD [address] [place] [address] PCP - General Family Medicine 07/03/21 Sofie Diana MD [address] [place] [address] Primary Staff Physician Cardiology 07/03/21 Verito Whelan MD [address] [place] [address] Referring Pulmonary Disease 10/04/21 Pito Grigsby MD [address] [facility] [place] [address] Physician Hematology/Oncology 10/25/21 Brent Miller, STATION MECHANIC HELPER.RN DERMATOLOGY [address] [facility] [place] [address] Nurse Practitioner Hematology/Oncology 10/25/21 Denita Rai, RN [address] [facility] [place] [address] Specialty Admitting Representative Hematology/Oncology 10/25/21 Calibrator Barometers Relationship Specialty Start Date End Date Christina Azul MD [address] [place] [address] PCP - General Family Medicine 07/03/21 Sofie Diana MD [address] [place] [address] Primary Staff Physician Cardiology 07/03/21 Verito Whelan MD [address] [place] [address] Referring Pulmonary Disease 10/04/21 Pito Grigsby MD [address] [facility] [place] [address] Physician Hematology/Oncology 10/25/21 Brent Miller APRN.RN DERMATOLOGY [address] [facility] [place] [address] Nurse Practitioner Hematology/Oncology 10/25/21 Denita Rai, KERRY [address] [facility] [place] [address] Specialty Admitting Representative Hematology/Oncology 10/25/21 Calibrator Barometers Relationship Specialty Start Date End Date Christina Azul MD [address] [place] [address] PCP - General Family Medicine 07/03/21 Sofie Diana MD [address] [place] [address] Primary Staff Physician Cardiology 07/03/21 Verito Whelan MD [address] [place] [address] Referring Pulmonary Disease 10/04/21 Pito Grigsby MD [address] [facility] [place] [address] Physician Hematology/Oncology 10/25/21 Brent Miller, STATION MECHANIC HELPER.RN DERMATOLOGY [address] [facility] [place] [address] Nurse Practitioner Hematology/Oncology 10/25/21 Denita Rai, KERRY [address] [place] [address] [place] [address] Specialty Admitting Representative Hematology/Oncology 10/25/21 Calibrator Barometers Relationship Specialty Start Date End Date Christina Azul MD [address] [place] [address] PCP - General Family Medicine 07/03/21 Sofie Diana MD [address] [place] [address] Primary Staff Physician Cardiology 07/03/21 Verito Whelan MD [address] [place] [address] Referring Pulmonary Disease 10/04/21 Pito Grigsby MD [address] [facility] [place] [address] Physician Hematology/Oncology 10/25/21 Brent Miller, STATION MECHANIC HELPER.RN DERMATOLOGY [address] [facility] [place] [address] Nurse Practitioner Hematology/Oncology 10/25/21 Denita Rai, KERRY [address] [facility] [place] [address] Specialty Admitting Representative Hematology/Oncology 10/25/21 Calibrator Barometers Relationship Specialty Start Date End Date Christina Azul MD [address] [place], [place] [id number] PCP - General Family Medicine 07/03/21 Sofie Diana MD [address] [place] [address] Primary Staff Physician Cardiology 07/03/21 Verito Whelan MD [address] [place] [address] Referring Pulmonary Disease 10/04/21 Pito Grigsby MD [address] [place] [address] [place] [address] Physician Hematology/Oncology 10/25/21 Brent Miller, OZZIE.RN DERMATOLOGY [address] [facility] [place] [address] Nurse Practitioner Hematology/Oncology 10/25/21 Denita Rai, RN [address] [facility] [place] [address] Specialty Admitting Representative Hematology/Oncology 10/25/21 Calibrator Barometers Relationship Specialty Start Date End Date Christina Azul MD [address] [place] [id number] PCP - General Family Medicine 07/03/21 Sofie Diana MD [address] [place] [address] Primary Staff Physician Cardiology 07/03/21 Verito Whelan MD [address] [place] [address] Referring Pulmonary Disease 10/04/21 Pito Grigsby MD [address] [facility] [place] [address] Physician Hematology/Oncology 10/25/21 Brent Miller, STATION MECHANIC HELPER.[address] [place] [address] Nurse Practitioner Hematology/Oncology 10/25/21 Denita Rai, KERRY [address] [place] [address] [place] [address] Specialty Admitting Representative Hematology/Oncology 10/25/21 Calibrator Barometers Relationship Specialty Start Date End Date Christina Azul MD [address] [place] [address] PCP - General Family Medicine 07/03/21 Sofie Diana MD [address] [place] [address] Primary Staff Physician Cardiology 07/03/21 Verito Whelan MD [address] [place] [address] Referring Pulmonary Disease 10/04/21 Pito Grigsby MD [address] [place] [address] [place] [address] Physician Hematology/Oncology 10/25/21 Brent Miller, STATION MECHANIC HELPER.[address] [place] [address] Nurse Practitioner Hematology/Oncology 10/25/21 Denita Rai, KERRY [address] [place] [address] [place] [address] Specialty Admitting Representative Hematology/Oncology 10/25/21 Calibrator Barometers Relationship Specialty Start Date End Date Christina Azul MD [address] [place] [address] PCP - General Family Medicine 07/03/21 Sofie Diana MD [address] [place], [place] [id number] Primary Staff Physician Cardiology 07/03/21 Verito Whelan MD [address] [place], [place] [id number] Referring Pulmonary Disease 10/04/21 Pito Grigsby MD [address] [facility] [place] [address] Physician Hematology/Oncology 10/25/21 Brent Miller, STATION MECHANIC HELPER.RN DERMATOLOGY [address] [facility] [place] [address] Nurse Practitioner Hematology/Oncology 10/25/21 Denita Rai, KERRY [address] [facility] [place] [address] Specialty Admitting Representative Hematology/Oncology 10/25/21 Calibrator Barometers Relationship Specialty Start Date End Date Christina Azul MD [address] [place] [address] PCP - General Family Medicine 07/03/21 Sofie Diana MD [address] [place] [address] Primary Staff Physician Cardiology 07/03/21 Verito Whelan MD [address] [place] [address] Referring Pulmonary Disease 10/04/21 Pito Grigsby MD [address] [facility] [place] [address] Physician Hematology/Oncology 10/25/21 Brent Miller, STATION MECHANIC HELPER.RN DERMATOLOGY [address] [facility] [address] [place] [id number] Nurse Practitioner Hematology/Oncology 10/25/21 Denita Rai, RN [address] [facility] [place] [address] Specialty Admitting Representative Hematology/Oncology 10/25/21 Calibrator Barometers Relationship Specialty Start Date End Date Christina Azul MD [address] [place] [id number] PCP - General Family Medicine 07/03/21 Sofie Diana MD [address] [place], [place] [id number] Primary Staff Physician Cardiology 07/03/21 Verito Whelan MD [address] [place] [address] Referring Pulmonary Disease 10/04/21 Pito Grigsby MD [address] [facility] [place] [address] Physician Hematology/Oncology 10/25/21 Brent Mliler, OZZIE.[address] [place] [address] Nurse Practitioner Hematology/Oncology 10/25/21 Denita Rai, RN [address] [place] [address] [place] [address] Specialty Admitting Representative Hematology/Oncology 10/25/21 Calibrator Barometers Relationship Specialty Start Date End Date Christina Azul MD [address] [place] [id number] PCP - General Family Medicine 07/03/21 Sofie Diana MD [address] [place] [address] Primary Staff Physician Cardiology 07/03/21 Verito Whelan MD [address] [place] [address] Referring Pulmonary Disease 10/04/21 Pito Grigsby MD [address] [facility] [place] [address] Physician Hematology/Oncology 10/25/21 Brent Miller, STATION MECHANIC HELPER.RN DERMATOLOGY [address] [facility] [place] [address] Nurse Practitioner Hematology/Oncology 10/25/21 Denita Rai, KERRY [address] [place] [address] [place] [address] Specialty Admitting Representative Hematology/Oncology 10/25/21 Calibrator Barometers Relationship Specialty Start Date End Date Christina Azul MD [address] [place] [address] PCP - General Family Medicine 07/03/21 Sofie Diana MD [address] [place] [address] Primary Staff Physician Cardiology 07/03/21 Verito Whelan MD [address] [place] [address] Referring Pulmonary Disease 10/04/21 Pito Grigsby MD [address] [facility] [place] [address] Physician Hematology/Oncology 10/25/21 Brent Miller, STATION MECHANIC HELPER.RN DERMATOLOGY [address] [facility] [place] [address] Nurse Practitioner Hematology/Oncology 10/25/21 Denita Rai, RN [address] [facility] [place] [address] Specialty Admitting Representative Hematology/Oncology 10/25/21 Calibrator Barometers Relationship Specialty Start Date End Date Christina Azul MD [address] [place] [address] PCP - General Family Medicine 07/03/21 Sofie Diana MD [address] [place] [address] Primary Staff Physician Cardiology 07/03/21 Verito Whelan MD [address] [place], [place] [id number] Referring Pulmonary Disease 10/04/21 Pito Grigsby MD [address] [facility] [place] [address] Physician Hematology/Oncology 10/25/21 Brent Miller, STATION MECHANIC HELPER.RN DERMATOLOGY [address] [facility] [place] [address] Nurse Practitioner Hematology/Oncology 10/25/21 Denita Rai, RN [address] [facility] [place] [address] Specialty Admitting Representative Hematology/Oncology 10/25/21 Calibrator Barometers Relationship Specialty Start Date End Date Christina Azul MD [address] [place] [address] PCP - General Family Medicine 07/03/21 Sofie Diana MD [address] [place] [address] Primary Staff Physician Cardiology 07/03/21 Verito Whelan MD [address] [place] [address] Referring Pulmonary Disease 10/04/21 Pito Grigsby MD [address] [facility] [place] [address] Physician Hematology/Oncology 10/25/21 Brent Miller, STATION MECHANIC HELPER.RN DERMATOLOGY [address] [facility] [place] [address] Nurse Practitioner Hematology/Oncology 10/25/21 Denita Rai, RN [address] [facility] [place] [address] Specialty Admitting Representative Hematology/Oncology 10/25/21 Calibrator Barometers Relationship Specialty Start Date End Date Christina Azul MD [address] [place] [address] PCP - General Family Medicine 07/03/21 Sofie Diana MD [address] [place] [address] Primary Staff Physician Cardiology 07/03/21 Verito Whelan MD [address] [place] [address] Referring Pulmonary Disease 10/04/21 Pito Grigsby MD [address] [facility] [place] [address] Physician Hematology/Oncology 10/25/21 Brent Miller, STATION MECHANIC HELPER.RN DERMATOLOGY [address] [facility] [place] [address] Nurse Practitioner Hematology/Oncology 10/25/21 Denita Rai, RN [address] [facility] [place] [address] Specialty Admitting Representative Hematology/Oncology 10/25/21 Team Status: Active Member Role Status Dates Christina Azul MD Primary Care Provider Active Team Status: Inactive Member Role Status Dates Christina Azul MD Primary Care Provider Active Sapna Angulo APRN Emergency Provider Active Calibrator Barometers Relationship Specialty Start Date End Date Christina Azul MD [address] [place] [address] PCP - General Family Medicine 07/03/21 Sofie Diana MD [address] [place] [address] Primary Staff Physician Cardiology 07/03/21 Verito Whelan MD [address] [place], [place] [id number] Referring Pulmonary Disease 10/04/21 Pito Grigsby MD [address] [facility] [place] [address] Physician Hematology/Oncology 10/25/21 Brent Miller APRN.RN DERMATOLOGY [address] [facility] [place] [address] Nurse Practitioner Hematology/Oncology 10/25/21 Denita Rai, KERRY [address] [facility] [place] [address] Specialty Admitting Representative Hematology/Oncology 10/25/21 Calibrator Barometers Relationship Specialty Start Date End Date Christina Azul MD [address] [place] [address] PCP - General Family Medicine 07/03/21 Sofie Diana MD [address] [place] [address] Primary Staff Physician Cardiology 07/03/21 Verito Whelan MD [address] [place] [address] Referring Pulmonary Disease 10/04/21 Pito Grigsby MD [address] [facility] [place] [address] Physician Hematology/Oncology 10/25/21 Brent Miller, STATION MECHANIC HELPER.RN DERMATOLOGY [address] [facility] [place] [address] Nurse Practitioner Hematology/Oncology 10/25/21 Denita Rai, RN [address] [facility] [place] [address] Specialty Admitting Representative Hematology/Oncology 10/25/21 Minna Madrigal LSW Hammer Fitter 01/08/23 Calibrator Barometers Relationship Specialty Start Date End Date Christina Azul MD [address] [place] [address] PCP - General Family Medicine 07/03/21 Sofie Diana MD [address] [place] [address] Primary Staff Physician Cardiology 07/03/21 Verito Whelan MD [address] [place] [address] Referring Pulmonary Disease 10/04/21 Ptio Grigsby MD [address] [facility] [place] [address] Physician Hematology/Oncology 10/25/21 Brent Miller, STATION MECHANIC HELPER.RN DERMATOLOGY [address] [facility] [place] [address] Nurse Practitioner Hematology/Oncology 10/25/21 Denita Rai, RN [address] [facility] [place] [address] Specialty Admitting Representative Hematology/Oncology 10/25/21 Minna Madrigal LSW Hammer Fitter 01/08/23 Calibrator Barometers Relationship Specialty Start Date End Date Christina Azul MD [address] [place] [address] PCP - General Family Medicine 07/03/21 Sofie Diana MD [address] [place] [address] Primary Staff Physician Cardiology 07/03/21 Verito Whelan MD [address] [place] [address] Referring Pulmonary Disease 10/04/21 Pito Grigsby MD [address] [place] [address] [place] [address] Physician Hematology/Oncology 10/25/21 Brent Miller, STATION MECHANIC HELPER.RN DERMATOLOGY [address] [facility] [place] [address] Nurse Practitioner Hematology/Oncology 10/25/21 Denita Rai, KERRY [address] [place] [address] [place] [address] Specialty Admitting Representative Hematology/Oncology 10/25/21 Minna Madrigal LSW Hammer Fitter 01/08/23 Calibrator Barometers Relationship Specialty Start Date End Date Christina Azul MD [address] [place] [address] PCP - General Family Medicine 07/03/21 Sofie Diana MD [address] [place] [address] Primary Staff Physician Cardiology 07/03/21 Verito Whelan MD [address] [place] [address] Referring Pulmonary Disease 10/04/21 Pito Grigsby MD [address] [place] [address] [place] [address] Physician Hematology/Oncology 10/25/21 Brent Miller, STATION MECHANIC HELPER.RN DERMATOLOGY [address] [place] [address] [place] [address] Nurse Practitioner Hematology/Oncology 10/25/21 Denita Rai, KERRY [address] [place] [address] [place] [address] Specialty Admitting Representative Hematology/Oncology 10/25/21 Minna Madrigal LSW Hammer Fitter 01/08/23 Calibrator Barometers Relationship Specialty Start Date End Date Christina Azul MD [address] [place] [address] PCP - General Family Medicine 07/03/21 Sofie Diana MD [address] [place] [address] Primary Staff Physician Cardiology 07/03/21 Verito Whelan MD [address] [place] [address] Referring Pulmonary Disease 10/04/21 Pito Grigsby MD [address] [place] [address] [place] [address] Physician Hematology/Oncology 10/25/21 Brent Miller, STATION MECHANIC HELPER.[facility] [address] [place] [address] [place] [address] Nurse Practitioner Hematology/Oncology 10/25/21 Denita Rai, KERRY [address] [facility] [place] [address] Specialty Admitting Representative Hematology/Oncology 10/25/21 Minna Madrigal LSW Hammer Fitter 01/08/23 Calibrator Barometers Relationship Specialty Start Date End Date Christina Azul MD [address] [place] [address] PCP - General Family Medicine 07/03/21 Sofie Diana MD [address] [place] [address] Primary Staff Physician Cardiology 07/03/21 Verito Whelan MD [address] [place] [address] Referring Pulmonary Disease 10/04/21 Pito Grigsby MD [address] [facility] [address] [place] [id number] Physician Hematology/Oncology 10/25/21 Brent Miller APRN.RN DERMATOLOGY [address] [facility] [place] [address] Nurse Practitioner Hematology/Oncology 10/25/21 Denita Rai, KERRY [address] [facility] [place] [address] Specialty Admitting Representative Hematology/Oncology 10/25/21 Minna Madrigal LSW Hammer Fitter 01/08/23 Calibrator Barometers Relationship Specialty Start Date End Date Christina Azul MD [address] [place] [address] PCP - General Family Medicine 07/03/21 Sofie Diana MD [address] [place] [id number] Primary Staff Physician Cardiology 07/03/21 Verito Whelan MD [address] [place] [id number] Referring Pulmonary Disease 10/04/21 Pito Grigsby MD [address] [place] [address] [place] [address] Physician Hematology/Oncology 10/25/21 Brent Miller, STATION MECHANIC HELPER.RN DERMATOLOGY [address] [facility] [place] [address] Nurse Practitioner Hematology/Oncology 10/25/21 Denita Rai, KERRY [address] [place] [address] [place] [address] Specialty Admitting Representative Hematology/Oncology 10/25/21 Minna Madrigal LSW Hammer Fitter 01/08/23 Calibrator Barometers Relationship Specialty Start Date End Date Christina Azul MD [address] [place] [address] PCP - General Family Medicine 07/03/21 Sofie Diana MD [address] [place] [address] Primary Staff Physician Cardiology 07/03/21 Verito Whelan MD [address] [place] [address] Referring Pulmonary Disease 10/04/21 Pito Grigsby MD [address] [place] [address] [place] [address] Physician Hematology/Oncology 10/25/21 Brent Miller, STATION MECHANIC HELPER.RN DERMATOLOGY [address] [facility] [place] [address] Nurse Practitioner Hematology/Oncology 10/25/21 Denita Rai, RN [address] [facility] [place] [address] Specialty Admitting Representative Hematology/Oncology 10/25/21 Minna Madrigal LSW Hammer Fitter 01/08/23 Calibrator Barometers Relationship Specialty Start Date End Date Christina Azul MD [address] [place] [address] PCP - General Family Medicine 07/03/21 Sofie Diana MD [address] [place], [place] [id number] Primary Staff Physician Cardiology 07/03/21 Verito Whelan MD [address] [place] [address] Referring Pulmonary Disease 10/04/21 Pito Grigsby MD [address] [facility] [place] [address] Physician Hematology/Oncology 10/25/21 Brent Miller, STATION MECHANIC HELPER.RN DERMATOLOGY [address] [facility] [place] [address] Nurse Practitioner Hematology/Oncology 10/25/21 Denita Rai, RN [address] [facility] [place] [address] Specialty Admitting Representative Hematology/Oncology 10/25/21 Minna Madrigal LSW Hammer Fitter 01/08/23 Calibrator Barometers Relationship Specialty Start Date End Date Christina Azul MD [address] [place] [address] PCP - General Family Medicine 07/03/21 Sofie Diana MD [address] [place], [place] [id number] Primary Staff Physician Cardiology 07/03/21 Verito Whelan MD [address] [place], [place] [id number] Referring Pulmonary Disease 10/04/21 Pito Grigsby MD [address] [facility] [place] [address] Physician Hematology/Oncology 10/25/21 Brent Miller, OZZIE.RN DERMATOLOGY [address] [place] [address] [place] [address] Nurse Practitioner Hematology/Oncology 10/25/21 Denita Rai, KERRY [address] [facility] [place] [address] Specialty Admitting Representative Hematology/Oncology 10/25/21 Minna Madrigal LSW Hammer Fitter 01/08/23 Calibrator Barometers Relationship Specialty Start Date End Date Christina Azul MD [address] [place] [address] PCP - General Family Medicine 07/03/21 Sofie Diana MD [address] [place], [place] [id number] Primary Staff Physician Cardiology 07/03/21 Verito Whelan MD [address] [place], [place] [id number] Referring Pulmonary Disease 10/04/21 Pito Grigsby MD [address] [facility] [place] [address] Physician Hematology/Oncology 10/25/21 Brent Miller, STATION MECHANIC HELPER.RN DERMATOLOGY [address] [facility] [place] [address] Nurse Practitioner Hematology/Oncology 10/25/21 Denita Rai, KERRY [address] [facility] [place] [address] Specialty Admitting Representative Hematology/Oncology 10/25/21 Minna Madrigal LSW Hammer Fitter 01/08/23 Calibrator Barometers Relationship Specialty Start Date End Date Christina Azul MD [address] [place] [address] PCP - General Family Medicine 07/03/21 Sofie Diana MD [address] [place] [address] Primary Staff Physician Cardiology 07/03/21 Verito Whelan MD [address] [place] [address] Referring Pulmonary Disease 10/04/21 Pito Grigsby MD [address] [facility] [place] [address] Physician Hematology/Oncology 10/25/21 Brent Miller, STATION MECHANIC HELPER.RN DERMATOLOGY [address] [place] [address] [place] [address] Nurse Practitioner Hematology/Oncology 10/25/21 Denita Rai, KERRY [address] [place] [address] [place] [address] Specialty Admitting Representative Hematology/Oncology 10/25/21 Minna Madrigal LSW Hammer Fitter 01/08/23 Calibrator Barometers Relationship Specialty Start Date End Date Christina Azul MD [address] [place] [address] PCP - General Family Medicine 07/03/21 Sofie Diana MD [address] [place], [place] [id number] Primary Staff Physician Cardiology 07/03/21 Verito Whelan MD [address] [place] [address] Referring Pulmonary Disease 10/04/21 Pito Grigsby MD [address] [place] [address] [place] [address] Physician Hematology/Oncology 10/25/21 Brent Miller, OZZIE.RN DERMATOLOGY [address] [place] [address] [place] [address] Nurse Practitioner Hematology/Oncology 10/25/21 Denita Rai, KERRY [address] [place] [address] [place] [address] Specialty Admitting Representative Hematology/Oncology 10/25/21 Minna Madrigal LSW Hammer Fitter 01/08/23 Calibrator Barometers Relationship Specialty Start Date End Date Christina Auzl MD [address] [place] [id number] PCP - General Family Medicine 07/03/21 Sofie Diana MD [address] [place] [address] Primary Staff Physician Cardiology 07/03/21 Verito Whelan MD [address] [place] [id number] Referring Pulmonary Disease 10/04/21 Pito Grigsby MD [address] [place] [address] [place] [address] Physician Hematology/Oncology 10/25/21 Brent Miller APRN.RN DERMATOLOGY [address] [place] [address] [address] [place] [id number] Nurse Practitioner Hematology/Oncology 10/25/21 Denita Rai, KERRY [address] [place] [address] [place] [address] Specialty Admitting Representative Hematology/Oncology 10/25/21 Minna Madrigal LSW Hammer Fitter 01/08/23 Calibrator Barometers Relationship Specialty Start Date End Date Christina Azul MD [address] [place] [id number] PCP - General Family Medicine 07/03/21 Sofie Diana MD [address] [place], [place] [id number] Primary Staff Physician Cardiology 07/03/21 Verito Whelan MD [address] [place], [place] [id number] Referring Pulmonary Disease 10/04/21 Pito Grigsby MD [address] [place] [address] [place] [address] Physician Hematology/Oncology 10/25/21 Brent Miller, STATION MECHANIC HELPER.RN DERMATOLOGY [address] [facility] [place] [address] Nurse Practitioner Hematology/Oncology 10/25/21 Denita Rai, KERRY [address] [facility] [place] [address] Specialty Admitting Representative Hematology/Oncology 10/25/21 Minna Madrigal LSW Hammer Fitter 01/08/23 Calibrator Barometers Relationship Specialty Start Date End Date Christina Azul MD [address] [place] [address] PCP - General Family Medicine 07/03/21 Sofie Diana MD [address] [place], [place] [phone] Primary Staff Physician Cardiology 07/03/21 eVrito Whelan MD [address] [place], [place] [phone] Referring Pulmonary Disease 10/04/21 Pito Grigsby MD [address] [place] [address] [place] [address] Physician Hematology/Oncology 10/25/21 Brent Miller, STATION MECHANIC HELPER.RN DERMATOLOGY [address] [facility] [place] [address] Nurse Practitioner Hematology/Oncology 10/25/21 Denita Rai, KERRY [address] [facility] [place] [address] Specialty Admitting Representative Hematology/Oncology 10/25/21 Minna Madrigal LSW Hammer Fitter 01/08/23 Calibrator Barometers Relationship Specialty Start Date End Date Christina Azul MD [address] [place] [address] PCP - General Family Medicine 07/03/21 Sofie Diana MD [address] [place], [place] [id number] Primary Staff Physician Cardiology 07/03/21 Verito Whelan MD [address] [place], [place] [phone] Referring Pulmonary Disease 10/04/21 Pito Grigsby MD [address] [facility] [place] [address] Physician Hematology/Oncology 10/25/21 Brent Miller APRN.CNP [address] [facility] [place] [address] Nurse Practitioner Hematology/Oncology 10/25/21 Denita Rai, KERRY [address] [facility] [place] [address] Specialty Admitting Representative Hematology/Oncology 10/25/21 Minna Madrigal LSW Hammer Fitter 01/08/23 Calibrator Barometers Relationship Specialty Start Date End Date Christina Azul MD [address] [place] [address] PCP - General Family Medicine 07/03/21 oSfie Diana MD [address], [place] [phone] Primary Staff Physician Cardiology 07/03/21 Verito Whelan MD [address] [facility] [place] [place] [phone] Referring Pulmonary Disease 10/04/21 Pito Grigsby MD [address] [facility] [place] [address] Physician Hematology/Oncology 10/25/21 Brent Miller APRN.RN DERMATOLOGY [address] [facility] [place] [address] Nurse Practitioner Hematology/Oncology 10/25/21 Denita Rai, KERRY [address] [facility] [place] [address] Specialty Admitting Representative Hematology/Oncology 10/25/21 Minna Madrigal LSW Hammer Fitter 01/08/23 Calibrator Barometers Relationship Specialty Start Date End Date Christina Azul MD [address] [place] [address] PCP - General Family Medicine 07/03/21 Sofie Diana MD [address] [place] [address] Primary Staff Physician Cardiology 07/03/21 Verito Whelan MD [address] [address] Referring Pulmonary Disease 10/04/21 Pito Grigsby MD [address] [place] [address] [place] [address] Physician Hematology/Oncology 10/25/21 Brent Miller, OZZIE.RN DERMATOLOGY [address] [place] [address] [place] [address] Nurse Practitioner Hematology/Oncology 10/25/21 Denita Rai, KERRY [address] [facility] [place] [address] Specialty Admitting Representative Hematology/Oncology 10/25/21 Minna Madrigal LSW Hammer Fitter 01/08/23 Calibrator Barometers Relationship Specialty Start Date End Date Christina Azul MD [address] [place] [address] PCP - General Family Medicine 07/03/21 Sofie Diana MD [address] [place] [address] Primary Staff Physician Cardiology 07/03/21 Verito Whelan MD [address] [place] [address] Referring Pulmonary Disease 10/04/21 Pito Grigsby MD [address] [place] [address] [place] [address] Physician Hematology/Oncology 10/25/21 Brent Miller, STATION MECHANIC HELPER.RN DERMATOLOGY [address] [place] [address] [place] [address] Nurse Practitioner Hematology/Oncology 10/25/21 Denita Rai, KERRY [address] [facility] [place] [address] Specialty Admitting Representative Hematology/Oncology 10/25/21 Minna Madrigal LSW Hammer Fitter 01/08/23 Calibrator Barometers Relationship Specialty Start Date End Date Christina Azul MD [address] [place] [address] PCP - General Family Medicine 07/03/21 Sofie Diana MD [address] [place] [address] Primary Staff Physician Cardiology 07/03/21 Verito Whelan MD [address] [place], [place] [phone] Referring Pulmonary Disease 10/04/21 Pito Grigsby MD [address] [place] [address] [address] [place] [phone] Physician Hematology/Oncology 10/25/21 Brent Miller APRN.RN DERMATOLOGY [address] [place] [address] [address] [place] [place] [phone] Nurse Practitioner Hematology/Oncology 10/25/21 Denita Rai, KERRY [address] [facility] [place] [address] Specialty Admitting Representative Hematology/Oncology 10/25/21 Minna Madrigal LSW Hammer Fitter 01/08/23 Calibrator Barometers Relationship Specialty Start Date End Date Christina Azul MD [address] [place] [address] PCP - General Family Medicine 07/03/21 Sofie Diana MD [address] [place] [address] Primary Staff Physician Cardiology 07/03/21 Verito Whelan MD [address] [place] [phone] Referring Pulmonary Disease 10/04/21 Pito Grigsby MD [address] [place] [address] [place] [address] Physician Hematology/Oncology 10/25/21 Brent Miller APRN.RN DERMATOLOGY [address] [place] [address] [place] [address] Nurse Practitioner Hematology/Oncology 10/25/21 Denita Rai, KERRY [address] [place] [address] [place] [address] Specialty Admitting Representative Hematology/Oncology 10/25/21 Minna Madrigal LSW Hammer Fitter 01/08/23 Calibrator Barometers Relationship Specialty Start Date End Date Christina Azul MD [address] [place] [address] PCP - General Family Medicine 07/03/21 [place] MD [address] [facility] [place] [phone] Primary Staff Physician Cardiology 07/03/21 Verito Whelan MD [address] [place] [address] Referring Pulmonary Disease 10/04/21 Pito Grigsby MD [address] [place] [address] [place] [address] Physician Hematology/Oncology 10/25/21 Brent Miller, STATION MECHANIC HELPER.RN DERMATOLOGY [address] [facility] [place] [address] Nurse Practitioner Hematology/Oncology 10/25/21 Denita Rai, RN [address] [facility] [place] [address] Specialty Admitting Representative Hematology/Oncology 10/25/21 Minna Madrigal LSW Hammer Fitter 01/08/23 Calibrator Barometers Relationship Specialty Start Date End Date Christina Azul MD [address] [place] [address] PCP - General Family Medicine 07/03/21 Sofie Diana MD [address] [place], [place] [phone] Primary Staff Physician Cardiology 07/03/21 Verito Whelan MD [address] [place], [place] [phone] Referring Pulmonary Disease 10/04/21 Pito Grigsby MD [address] [facility] [place] [address] Physician Hematology/Oncology 10/25/21 Brent Miller, STATION MECHANIC HELPER.RN DERMATOLOGY [address] [facility] [place] [address] Nurse Practitioner Hematology/Oncology 10/25/21 Denita Rai, RN [address] [facility] [place] [address] Specialty Admitting Representative Hematology/Oncology 10/25/21 Minna Madrigal LSW Hammer Fitter 01/08/23 Calibrator Barometers Relationship Specialty Start Date End Date Christina Azul MD [address] [place] [address] PCP - General Family Medicine 07/03/21 Sofie Diana MD [address] [place] [address] Primary Staff Physician Cardiology 07/03/21 Verito Whelan MD [address] [place], [place] [phone] Referring Pulmonary Disease 10/04/21 Pito Grigsby MD [address] [facility] [place] [address] Physician Hematology/Oncology 10/25/21 Brent Miller APRN.RN DERMATOLOGY [address] [facility] [place] [address] Nurse Practitioner Hematology/Oncology 10/25/21 Denita Rai, RN [address] [facility] [place] [address] Specialty Admitting Representative Hematology/Oncology 10/25/21 Minna Madrigal LSW Hammer Fitter 01/08/23 Calibrator Barometers Relationship Specialty Start Date End Date Christina Azul MD [address] [place] [address] PCP - General Family Medicine 07/03/21 Sofie Diana MD [address] [place] [address] Primary Staff Physician Cardiology 07/03/21 Verito Whelan MD [address] [place] [address] Referring Pulmonary Disease 10/04/21 Pito Grigsby MD [address] [place] [address] [place] [address] Physician Hematology/Oncology 10/25/21 Brent Miller, STATION MECHANIC HELPER.RN DERMATOLOGY [address] [place] [address] [place] [address] Nurse Practitioner Hematology/Oncology 10/25/21 Denita Rai, KERRY [address] [place] [address] [place] [address] Specialty Admitting Representative Hematology/Oncology 10/25/21 Minna Madrigal LSW Hammer Fitter 01/08/23 Calibrator Barometers Relationship Specialty Start Date End Date Christina Azul MD [address] [place] [address] PCP - General Family Medicine 07/03/21 Sofie Diana MD [address] [place] [address] Primary Staff Physician Cardiology 07/03/21 Verito Whelan MD [address] [place] [address] Referring Pulmonary Disease 10/04/21 Pito Grigsby MD [address] [place] [address] [place] [address] Physician Hematology/Oncology 10/25/21 Brent Miller, STATION MECHANIC HELPER.RN DERMATOLOGY [address] [place] [address] [address] [place] [phone] Nurse Practitioner Hematology/Oncology 10/25/21 Denita Rai, KERRY [address] [place] [address] [place] [address] Specialty Admitting Representative Hematology/Oncology 10/25/21 Minna Madrigal LSW Hammer Fitter 01/08/23 Calibrator Barometers Relationship Specialty Start Date End Date Christina Azul MD [address] [place] [address] PCP - General Family Medicine 07/03/21 Sofie Diana MD [address] [place] [phone] Primary Staff Physician Cardiology 07/03/21 Verito Whelan MD [address] [place] [phone] Referring Pulmonary Disease 10/04/21 Pito Grigsby MD [address] [place] [address] [place] [address] Physician Hematology/Oncology 10/25/21 Brent Miller APRN.RN DERMATOLOGY [address] [place] [address] [place] [address] Nurse Practitioner Hematology/Oncology 10/25/21 Denita Rai, KERRY [address] [facility] [place] [address] Specialty Admitting Representative Hematology/Oncology 10/25/21 Calibrator Barometers Relationship Specialty Start Date End Date Christina Azul MD [address] [place] [address] PCP - General Family Medicine 07/03/21 Sofie Diana MD [address] [place] [address] Primary Staff Physician Cardiology 07/03/21 Verito Whelan MD [address] [place] [address] Referring Pulmonary Disease 10/04/21 Pito Grigsby MD [address] [facility] [place] [address] Physician Hematology/Oncology 10/25/21 Brent Miller, STATION MECHANIC HELPER.RN DERMATOLOGY [address] [facility] [place] [address] Nurse Practitioner Hematology/Oncology 10/25/21 Denita Rai, KERRY [address] [facility] [place] [address] Specialty Admitting Representative Hematology/Oncology 10/25/21 Minna Madrigal LSW Hammer Fitter 01/08/23 Maryjo Fihs, STATION MECHANIC HELPER.RN DERMATOLOGY [address] [facility] [place] [address] HOSPICE & PALLIATIVE MEDICINE 05/22/23 Julieth Tapia, RN Specialty Admitting Representative HOSPICE & PALLIATIVE MEDICINE 05/22/23 Calibrator Barometers Relationship Specialty Start Date End Date Christina Azul MD [address] [place] [facility] [address] PCP - General Family Medicine 07/03/21 Sofie Diana MD [address] [place] [address] Primary Staff Physician Cardiology 07/03/21 Verito Whelan MD [address] [place] [phone] Referring Pulmonary Disease 10/04/21 Pito Grigsby MD [address] [place] [address] [place] [address] Physician Hematology/Oncology 10/25/21 Brent Miller, STATION MECHANIC HELPER.RN DERMATOLOGY [address] [place] [address] [place] [address] Nurse Practitioner Hematology/Oncology 10/25/21 Denita Rai, KERRY [address] [place] [address] [place] [address] Specialty Admitting Representative Hematology/Oncology 10/25/21 Minna Madrigal LSW Hammer Fitter 01/08/23 Maryjo Fish, STATION MECHANIC HELPER.RN DERMATOLOGY [address] [place] [address] [place] [address] HOSPICE & PALLIATIVE MEDICINE 05/22/23 Julieth Tapia RN Specialty Admitting Representative HOSPICE & PALLIATIVE MEDICINE 05/22/23 Calibrator Barometers Relationship Specialty Start Date End Date Christina Azul MD [address] [place] [id number] PCP - General Family Medicine 07/03/21 Sofie Diana MD [address] [place] [address] Primary Staff Physician Cardiology 07/03/21 Verito Whelan MD [address] [place] [phone] Referring Pulmonary Disease 10/04/21 Pito Grigsby MD [address] [place] [address] [place] [address] Physician Hematology/Oncology 10/25/21 Brent Miller, STATION MECHANIC HELPER.RN DERMATOLOGY [address] [place] [address] [place] [address] Nurse Practitioner Hematology/Oncology 10/25/21 Denita Rai, KERRY [address] [place] [address] [place] [address] Specialty Admitting Representative Hematology/Oncology 10/25/21 Minna Madrigal LSW Hammer Fitter 01/08/23 Maryjo Fish, STATION MECHANIC HELPER.RN DERMATOLOGY [address] [place] [address] [place] [address] HOSPICE & PALLIATIVE MEDICINE 05/22/23 Julieth Tapia RN Specialty Admitting Representative HOSPICE & PALLIATIVE MEDICINE 05/22/23 Calibrator Barometers Relationship Specialty Start Date End Date Christina Azul MD [address] [place] [id number] PCP - General Family Medicine 07/03/21 Sofie Diana MD [address] [place], [place] [phone] Primary Staff Physician Cardiology 07/03/21 Verito Whelan MD [address] [place] [address] Referring Pulmonary Disease 10/04/21 Pito Grigsby MD [address] [place] [address] [place] [address] Physician Hematology/Oncology 10/25/21 Brent Miller, OZZIE.RN DERMATOLOGY [address] [place] [address] [address] [place], [place] [phone] Nurse Practitioner Hematology/Oncology 10/25/21 Denita Rai, KERRY [address] [place] [address] [place] [address] Specialty Admitting Representative Hematology/Oncology 10/25/21 Minna Madrigal LSW Hammer Fitter 01/08/23 Maryjo Fish APRN.RN DERMATOLOGY [address] [place] [address] [place] [address] HOSPICE & PALLIATIVE MEDICINE 05/22/23 Julieth Tapia RN Specialty Admitting Representative HOSPICE & PALLIATIVE MEDICINE 05/22/23 Calibrator Barometers Relationship Specialty Start Date End Date Christina Azul MD [address] [place] [address] PCP - General Family Medicine 07/03/21 Sofie Diana MD [address] [place] [address] Primary Staff Physician Cardiology 07/03/21 Verito Whelan MD [address] [place] [address] Referring Pulmonary Disease 10/04/21 Pito Grigsby MD [address] [place] [address] [place] [address] Physician Hematology/Oncology 10/25/21 Brent Miller, STATION MECHANIC HELPER.RN DERMATOLOGY [address] [place] [address] [place] [address] Nurse Practitioner Hematology/Oncology 10/25/21 Denita Rai, RN [address] [facility] [place] [address] Specialty Admitting Representative Hematology/Oncology 10/25/21 Minna Madrigal LSW Hammer Fitter 01/08/23 Maryjo Fish, STATION MECHANIC HELPER.RN DERMATOLOGY [address] [place] [address] [place] [address] HOSPICE & PALLIATIVE MEDICINE 05/22/23 Julieth Tapia RN Specialty Admitting Representative HOSPICE & PALLIATIVE MEDICINE 05/22/23 Calibrator Barometers Relationship Specialty Start Date End Date Christina Azul MD [address] [place] [address] PCP - General Family Medicine 07/03/21 Sofie Diana MD [address] [place], [place] [phone] Primary Staff Physician Cardiology 07/03/21 Verito Whelan MD [address] [place] [address] Referring Pulmonary Disease 10/04/21 Pito Grigsby MD [address] [place] [address] [place] [address] Physician Hematology/Oncology 10/25/21 Brent Miller, STATION MECHANIC HELPER.RN DERMATOLOGY [address] [place] [address] [address] [place], [place] [phone] Nurse Practitioner Hematology/Oncology 10/25/21 Denita Rai, KERRY [address] [facility] [place] [address] Specialty Admitting Representative Hematology/Oncology 10/25/21 Minna Madrigal LSW Hammer Fitter 01/08/23 Maryjo Fish, STATION MECHANIC HELPER.RN DERMATOLOGY [address] [place] [address] [place] [address] HOSPICE & PALLIATIVE MEDICINE 05/22/23 Julieth Tapia RN Specialty Admitting Representative HOSPICE & PALLIATIVE MEDICINE 05/22/23 Calibrator Barometers Relationship Specialty Start Date End Date Christina Azul MD [address] [place] [address] PCP - General Family Medicine 07/03/21 Sofie Diana MD [address] [place] [address] Primary Staff Physician Cardiology 07/03/21 Verito Whelan MD [address] [place], [place] [phone] Referring Pulmonary Disease 10/04/21 Pito Grigsby MD [address] [place] [address] [place] [address] Physician Hematology/Oncology 10/25/21 Brent Miller, STATION MECHANIC HELPER.RN DERMATOLOGY [address] [place] [address] [place] [address] Nurse Practitioner Hematology/Oncology 10/25/21 Denita Rai, KERRY [address] [facility] [place] [address] Specialty Admitting Representative Hematology/Oncology 10/25/21 Minna Madrigal LSW Hammer Fitter 01/08/23 Maryjo Fish, STATION MECHANIC HELPER.RN DERMATOLOGY [address] [facility] [place] [address] HOSPICE & PALLIATIVE MEDICINE 05/22/23 Julieth Tapia RN Specialty Admitting Representative HOSPICE & PALLIATIVE MEDICINE 05/22/23 Calibrator Barometers Relationship Specialty Start Date End Date Christina Azul MD [address] [place] [address] PCP - General Family Medicine 07/03/21 Sofie Diana MD [address] [place], [place] [phone] Primary Staff Physician Cardiology 07/03/21 Verito Whelan MD [address] [place] [address] Referring Pulmonary Disease 10/04/21 Pito Grigsby MD [address] [place] [address] [place] [address] Physician Hematology/Oncology 10/25/21 Brent Miller, STATION MECHANIC HELPER.RN DERMATOLOGY [address] [place] [address] [place] [address] Nurse Practitioner Hematology/Oncology 10/25/21 Denita Rai, KERRY [address] [facility] [place] [address] Specialty Admitting Representative Hematology/Oncology 10/25/21 Minna Madrigal LSW Hammer Fitter 01/08/23 Maryjo Fish, STATION MECHANIC HELPER.RN DERMATOLOGY [address] [place] [address] [place] [address] HOSPICE & PALLIATIVE MEDICINE 05/22/23 Julieth Tapia, RN Specialty Admitting Representative HOSPICE & PALLIATIVE MEDICINE 05/22/23 Calibrator Barometers Relationship Specialty Start Date End Date Christina Azul MD [address] [place] [address] PCP - General Family Medicine 07/03/21 Sofie Diana MD [address] [place] [address] Primary Staff Physician Cardiology 07/03/21 Verito Whelan MD [address] [place], [place] [phone] Referring Pulmonary Disease 10/04/21 Pito Grigsby MD [address] [place] [address] [place] [address] Physician Hematology/Oncology 10/25/21 Brent Miller, OZZIE.RN DERMATOLOGY [address] [place] [address] [place] [address] Nurse Practitioner Hematology/Oncology 10/25/21 Denita Rai, KERRY [address] [place] [address] [place] [address] Specialty Admitting Representative Hematology/Oncology 10/25/21 Minna Madrigal LSW Hammer Fitter 01/08/23 Maryjo Fish, STATION MECHANIC HELPER.RN DERMATOLOGY [address] [place] [address] [place] [address] HOSPICE & PALLIATIVE MEDICINE 05/22/23 Julieth Tapia KERRY Specialty Admitting Representative HOSPICE & PALLIATIVE MEDICINE 05/22/23 Calibrator Barometers Relationship Specialty Start Date End Date Christina Azul MD [address] [place] [address] PCP - General Family Medicine 07/03/21 Sofie Diana MD [address] [place], [place] [phone] Primary Staff Physician Cardiology 07/03/21 Verito Whelan MD [address] [place], [place] [phone] Referring Pulmonary Disease 10/04/21 Pito Grigsby MD [address] [facility] [place] [address] Physician Hematology/Oncology 10/25/21 Brent Miller, STATION MECHANIC HELPER.RN DERMATOLOGY [address] [place] [address] [place] [address] Nurse Practitioner Hematology/Oncology 10/25/21 Denita Rai, KERRY [address] [facility] [place] [address] Specialty Admitting Representative Hematology/Oncology 10/25/21 Minna Madrigal LSW Hammer Fitter 01/08/23 Maryjo Fish, STATION MECHANIC HELPER.RN DERMATOLOGY [address] [facility] [place] [address] HOSPICE & PALLIATIVE MEDICINE 05/22/23 Julieth Tapia RN Specialty Admitting Representative HOSPICE & PALLIATIVE MEDICINE 05/22/23 Calibrator Barometers Relationship Specialty Start Date End Date Enrique Esposito, STATION MECHANIC HELPER.RN DERMATOLOGY [address] [place] [address] [id number] PCP - General 08/15/23 Sofie Diana MD [address] [place], [place] [phone] Primary Staff Physician Cardiology 07/03/21 Verito Whlean MD [address] [place], [place] [phone] Referring Pulmonary Disease 10/04/21 Pito Grigsby MD [address] [place] [address] [place] [address] Physician Hematology/Oncology 10/25/21 Brent Miller, STATION MECHANIC HELPER.RN DERMATOLOGY [address] [place] [address] [place] [address] Nurse Practitioner Hematology/Oncology 10/25/21 Denita Rai, KERRY [address] [place] [address] [place] [address] Specialty Admitting Representative Hematology/Oncology 10/25/21 Minna Madrigal LSW Hammer Fitter 01/08/23 Maryjo Fish, STATION MECHANIC HELPER.RN DERMATOLOGY [address] [place] [address] [place] [address] Hospice & Palliative Medicine 05/22/23 Julieth Tapia, RN Specialty Admitting Representative Hospice & Palliative Medicine 05/22/23 Calibrator Barometers Relationship Specialty Start Date End Date Enrique Esposito, STATION MECHANIC HELPER.RN DERMATOLOGY [address] [place] [address] PCP - General 08/15/23 Sofie Diana MD [address] [place], [place] [phone] Primary Staff Physician Cardiology 07/03/21 Verito Whelan MD [address] [place], [place] [phone] Referring Pulmonary Disease 10/04/21 Pito Grigsby MD [address] [place] [address] [place] [address] Physician Hematology/Oncology 10/25/21 Brent Miller, STATION MECHANIC HELPER.RN DERMATOLOGY [address] [place] [address] [place] [address] Nurse Practitioner Hematology/Oncology 10/25/21 Denita Rai, KERRY [address] [place] [address] [place] [address] Specialty Admitting Representative Hematology/Oncology 10/25/21 Minna Madrigal LSW Hammer Fitter 01/08/23 Maryjo Fish, STATION MECHANIC HELPER.RN DERMATOLOGY [address] [place] [address] [place] [address] Hospice & Palliative Medicine 05/22/23 Julieth Tapia, KERRY Specialty Admitting Representative Hospice & Palliative Medicine 05/22/23 Calibrator Barometers Relationship Specialty Start Date End Date Enrique Esposito, STATION MECHANIC HELPER.RN DERMATOLOGY [address] [place] [address] PCP - General 08/15/23 Sofie Diana MD [address] [place], [place] [phone] Primary Staff Physician Cardiology 07/03/21 Verito Whelan MD [address] [place], [place] [phone] Referring Pulmonary Disease 10/04/21 Pito Grigsby MD [address] [place] [address] [place] [address] Physician Hematology/Oncology 10/25/21 Brent Miller, STATION MECHANIC HELPER.RN DERMATOLOGY [address] [place] [address] [place] [address] Nurse Practitioner Hematology/Oncology 10/25/21 Denita Rai, KERRY [address] [place] [address] [place] [address] Specialty Admitting Representative Hematology/Oncology 10/25/21 Minna Madrigal LSW Hammer Fitter 01/08/23 Maryjo Fish, STATION MECHANIC HELPER.RN DERMATOLOGY [address] [place] [address] [place] [phone] Hospice & Palliative Medicine 05/22/23 Julieth Tapia, RN Specialty Admitting Representative Hospice & Palliative Medicine 05/22/23 Calibrator Barometers Relationship Specialty Start Date End Date Enrique Esposito, STATION MECHANIC HELPER.RN DERMATOLOGY [address] [place] [address] [id number] PCP - General 08/15/23 Sofie Diana MD [address], [place] [id number] Primary Staff Physician Cardiology 07/03/21 Verito Whelan MD [address] [place], [place] [id number] Referring Pulmonary Disease 10/04/21 Pito Grigsby MD [address] [place] [address] [place] [address] Physician Hematology/Oncology 10/25/21 Brent Miller, STATION MECHANIC HELPER.RN DERMATOLOGY [address] [place] [address] [place] [address] Nurse Practitioner Hematology/Oncology 10/25/21 Denita Rai, KERRY [address] [place] [address] [place] [address] Specialty Admitting Representative Hematology/Oncology 10/25/21 Minna Madrigal LSW Hammer Fitter 01/08/23 Maryjo Fish, STATION MECHANIC HELPER.RN DERMATOLOGY [address] [place] [address] [place] [address] Hospice & Palliative Medicine 05/22/23 Julieth Tapia RN Specialty Admitting Representative Hospice & Palliative Medicine 05/22/23 Calibrator Barometers Relationship Specialty Start Date End Date Enrique Esposito, STATION MECHANIC HELPER.RN DERMATOLOGY [address] [place] [address] [id number] PCP - General 08/15/23 Sofie Diana MD [address] [place], [place] [id number] Primary Staff Physician Cardiology 07/03/21 Verito Whelan MD [address] [place] [address] Referring Pulmonary Disease 10/04/21 Pito Grigsby MD [address] [place] [address] [place] [address] Physician Hematology/Oncology 10/25/21 Brent Miller, STATION MECHANIC HELPER.RN DERMATOLOGY [address] [place] [address] [place] [address] Nurse Practitioner Hematology/Oncology 10/25/21 Denita Rai, RN [address] [place] [address] [place] [address] Specialty Admitting Representative Hematology/Oncology 10/25/21 Minna Madrigal LSW Hammer Fitter 01/08/23 Maryjo Fish, STATION MECHANIC HELPER.RN DERMATOLOGY [address] [place] [address] [place] [address] Hospice & Palliative Medicine 05/22/23 Julieth Tapia RN Specialty Admitting Representative Hospice & Palliative Medicine 05/22/23 Calibrator Barometers Relationship Specialty Start Date End Date Enrique Esposito, STATION MECHANIC HELPER.RN DERMATOLOGY [address] [place] [address] 53218 PCP - General 08/15/23 Sofie Diana MD [address], [place] [phone] Primary Staff Physician Cardiology 07/03/21 Verito Whelan MD [address] [place] [address] Referring Pulmonary Disease 10/04/21 Pito Grigsby MD [address] [place] [address] [place] [address] Physician Hematology/Oncology 10/25/21 Brnet Miller, STATION MECHANIC HELPER.RN DERMATOLOGY [address] [place] [address] [address] [place], [place] [phone] Nurse Practitioner Hematology/Oncology 10/25/21 Denita Rai, KERRY [address] [facility] [place] [address] Specialty Admitting Representative Hematology/Oncology 10/25/21 Minna Madrigal LSW Hammer Fitter 01/08/23 Maryjo Fish, STATION MECHANIC HELPER.RN DERMATOLOGY [address] [place] [address] [place] [address] Hospice & Palliative Medicine 05/22/23 Julieth Tapia RN Specialty Admitting Representative Hospice & Palliative Medicine 05/22/23 Calibrator Barometers Relationship Specialty Start Date End Date Enrique Esposito, STATION MECHANIC HELPER.RN DERMATOLOGY [address] [place] [address] [phone] PCP - General 08/15/23 Sofie Diana MD [address], [place] [id number] Primary Staff Physician Cardiology 07/03/21 Verito Whelan MD [address], [place] [id number] Referring Pulmonary Disease 10/04/21 Pito Grigsby MD [address] [place] [address] [place] [address] Physician Hematology/Oncology 10/25/21 Brent Miller, STATION MECHANIC HELPER.RN DERMATOLOGY [address] [place] [address] [place] [address] Nurse Practitioner Hematology/Oncology 10/25/21 Denita Rai, KERRY [address] [facility] [place] [address] Specialty Admitting Representative Hematology/Oncology 10/25/21 Minna Madrigal LSW Hammer Fitter 01/08/23 Maryjo Fish, STATION MECHANIC HELPER.RN DERMATOLOGY [address] [facility] [place] [address] Hospice & Palliative Medicine 05/22/23 Julieth Tapia, RN Specialty Admitting Representative Hospice & Palliative Medicine 05/22/23 Calibrator Barometers Relationship Specialty Start Date End Date Enrique Esposito, STATION MECHANIC HELPER.RN DERMATOLOGY [address] [place] [address] PCP - General 08/15/23 Sofie Diana MD [address] [place], [place] [id number] Primary Staff Physician Cardiology 07/03/21 Verito Whelan MD [address] [place] [address] Referring Pulmonary Disease 10/04/21 Pito Grigsby MD [address] [place] [address] [place] [address] Physician Hematology/Oncology 10/25/21 Brent Miller, STATION MECHANIC HELPER.RN DERMATOLOGY [address] [place] [address] [place] [address] Nurse Practitioner Hematology/Oncology 10/25/21 Denita Rai, KERRY [address] [facility] [place] [address] Specialty Admitting Representative Hematology/Oncology 10/25/21 Minna Madrigal, MARGARET Hammer Fitter 01/08/23 Maryjo Fish, STATION MECHANIC HELPER.RN DERMATOLOGY [address] [place] [address] [place] [address] Hospice & Palliative Medicine 05/22/23 Julieth Tapia, RN Specialty Admitting Representative Hospice & Palliative Medicine 05/22/23 Calibrator Barometers Relationship Specialty Start Date End Date Enrique Esposito, STATION MECHANIC HELPER.RN DERMATOLOGY [address] [place] [address]007 PCP - General 08/15/23 Sofie Diana MD [address] [place] [address] Primary Staff Physician Cardiology 07/03/21 Verito Whelan MD [address] [place] [address] Referring Pulmonary Disease 10/04/21 Pito Grigsby MD [address] [place] [address] [place] [address] Physician Hematology/Oncology 10/25/21 Brent Miller, STATION MECHANIC HELPER.RN DERMATOLOGY [address] [place] [address] [place] [address] Nurse Practitioner Hematology/Oncology 10/25/21 Denita Rai, KERRY [address] [place] [address] [place] [address] Specialty Admitting Representative Hematology/Oncology 10/25/21 Minna Madrigal LSW Hammer Fitter 01/08/23 Maryjo Fish, STATION MECHANIC HELPER.RN DERMATOLOGY [address] [place] [address] [place] [address] Hospice & Palliative Medicine 05/22/23 Julieth Tapia, RN Specialty Admitting Representative Hospice & Palliative Medicine 05/22/23 Calibrator Barometers Relationship Specialty Start Date End Date Enrique Esposito, STATION MECHANIC HELPER.RN DERMATOLOGY [address] [place] [address] [phone] PCP - General 08/15/23 Sofie Diana MD [address], [place] [phone] Primary Staff Physician Cardiology 07/03/21 Verito Whelan MD [address], [place] [id number] Referring Pulmonary Disease 10/04/21 Pito Grigsby MD [address] [facility] [place] [address] Physician Hematology/Oncology 10/25/21 Brent Miller, STATION MECHANIC HELPER.RN DERMATOLOGY [address] [facility] [place] [address] Nurse Practitioner Hematology/Oncology 10/25/21 Denita Rai, KERRY [address] [facility] [place] [address] Specialty Admitting Representative Hematology/Oncology 10/25/21 Minna Madrigal LSW Hammer Fitter 01/08/23 Maryjo Fish, STATION MECHANIC HELPER.RN DERMATOLOGY [address] [facility] [place] [address] Hospice & Palliative Medicine 05/22/23 Julieth Tapia RN Specialty Admitting Representative Hospice & Palliative Medicine 05/22/23 Calibrator Barometers Relationship Specialty Start Date End Date Enrique Esposito, STATION MECHANIC HELPER.RN DERMATOLOGY [address] [place] [address] [phone] PCP - General 08/15/23 Sofie Diana MD [address] [place], [place] [phone] Primary Staff Physician Cardiology 07/03/21 Verito Whelan MD [address], [place] [phone] Referring Pulmonary Disease 10/04/21 Pito Grigsby MD [address] [facility] [place] [address] Physician Hematology/Oncology 10/25/21 Brent Miller, STATION MECHANIC HELPER.RN DERMATOLOGY [address] [facility] [place] [address] Nurse Practitioner Hematology/Oncology 10/25/21 Denita Rai, KERRY [address] [facility] [place] [address] Specialty Admitting Representative Hematology/Oncology 10/25/21 Minna Madrigal LSW Hammer Fitter 01/08/23 Maryjo Fish, STATION MECHANIC HELPER.RN DERMATOLOGY [address] [facility] [place] [address] Hospice & Palliative Medicine 05/22/23 Julieth Tapia, RN Specialty Admitting Representative Hospice & Palliative Medicine 05/22/23 Calibrator Barometers Relationship Specialty Start Date End Date Enrique Esposito, STATION MECHANIC HELPER.RN DERMATOLOGY [address] [place] [address] [phone] PCP - General 08/15/23 Sofie Diana MD [address] [place], [place] [id number] Primary Staff Physician Cardiology 07/03/21 Verito Whelan MD [address] [place] [id number] Referring Pulmonary Disease 10/04/21 Pito Grigsby MD [address] [place] [address] [place] [address] Physician Hematology/Oncology 10/25/21 Brent Miller, STATION MECHANIC HELPER.RN DERMATOLOGY [address] [place] [address] [place] [address] Nurse Practitioner Hematology/Oncology 10/25/21 Denita Rai, KERRY [address] [place] [address] [place] [address] Specialty Admitting Representative Hematology/Oncology 10/25/21 Minna Madrigal LSW Hammer Fitter 01/08/23 Maryjo Fish, STATION MECHANIC HELPER.RN DERMATOLOGY [address] [place] [address] [place] [address] Hospice & Palliative Medicine 05/22/23 Julieth Tapia, RN Specialty Admitting Representative Hospice & Palliative Medicine 05/22/23 Calibrator Barometers Relationship Specialty Start Date End Date Enrique Esposito, STATION MECHANIC HELPER.RN DERMATOLOGY [address] [place] [address] PCP - General 08/15/23 Sofie Diana MD [address] [place] [address] Primary Staff Physician Cardiology 07/03/21 Verito Whelan MD [address] [place], [place] [id number] Referring Pulmonary Disease 10/04/21 Pito Grigsby MD [address] [place] [address] [place] [address] Physician Hematology/Oncology 10/25/21 Brent Miller, STATION MECHANIC HELPER.RN DERMATOLOGY [address] [place] [address] [place] [address] Nurse Practitioner Hematology/Oncology 10/25/21 Denita Rai, KERRY [address] [place] [address] [place] [address] Specialty Admitting Representative Hematology/Oncology 10/25/21 Minna Madrigal LSW Hammer Fitter 01/08/23 Maryjo Fish, STATION MECHANIC HELPER.RN DERMATOLOGY [address] [place] [address] [place] [phone] Hospice & Palliative Medicine 05/22/23 Julieth Tapia, RN Specialty Admitting Representative Hospice & Palliative Medicine 05/22/23 Calibrator Barometers Relationship Specialty Start Date End Date Enrique Esposito, STATION MECHANIC HELPER.RN DERMATOLOGY [address] [place] [address] [phone] PCP - General 08/15/23 Sofie Diana MD [address], [place] [phone] Primary Staff Physician Cardiology 07/03/21 Verito Whelan MD [address], [place] [id number] Referring Pulmonary Disease 10/04/21 Pito Grigsby MD [address] [place] [address] [place] [address] Physician Hematology/Oncology 10/25/21 Brent Miller, STATION MECHANIC HELPER.RN DERMATOLOGY [address] [place] [address] [place] [address] Nurse Practitioner Hematology/Oncology 10/25/21 Denita Rai, KERRY [address] [place] [address] [place] [address] Specialty Admitting Representative Hematology/Oncology 10/25/21 Minna Madrigal LSW Hammer Fitter 01/08/23 Maryjo Fish, STATION MECHANIC HELPER.RN DERMATOLOGY [address] [place] [address] [place] [address] Hospice & Palliative Medicine 05/22/23 Julieth Tapia RN Specialty Admitting Representative Hospice & Palliative Medicine 05/22/23 Calibrator Barometers Relationship Specialty Start Date End Date Enrique Esposito, STATION MECHANIC HELPER.RN DERMATOLOGY [address] [place] [address] [phone] PCP - General 08/15/23 Sofie Diana MD [address], [place] [phone] Primary Staff Physician Cardiology 07/03/21 Verito Whelan MD [address] [place], [place] [phone] Referring Pulmonary Disease 10/04/21 Pito Grigsby MD [address] [place] [address] [place] [address] Physician Hematology/Oncology 10/25/21 Brent Miller, STATION MECHANIC HELPER.RN DERMATOLOGY [address] [place] [address] [place] [address] Nurse Practitioner Hematology/Oncology 10/25/21 Denita Rai, RN [address] [place] [address] [place] [address] Specialty Admitting Representative Hematology/Oncology 10/25/21 Minna Madrigal LSW Hammer Fitter 01/08/23 Maryjo Fish, STATION MECHANIC HELPER.RN DERMATOLOGY [address] [place] [address] [place] [address] Hospice & Palliative Medicine 05/22/23 Julieth Tapia RN Specialty Admitting Representative Hospice & Palliative Medicine 05/22/23 Calibrator Barometers Relationship Specialty Start Date End Date Enrique Esposito, STATION MECHANIC HELPER.RN DERMATOLOGY [address] [place] [address] [phone] PCP - General 08/15/23 Sofie Diana MD [address] [place] [address] Primary Staff Physician Cardiology 07/03/21 Verito Whelan MD [address], [place] [phone] Referring Pulmonary Disease 10/04/21 Pito Grigsby MD [address] [place] [address] [place] [address] Physician Hematology/Oncology 10/25/21 Brent Miller, STATION MECHANIC HELPER.RN DERMATOLOGY [address] [place] [address] [place] [address] Nurse Practitioner Hematology/Oncology 10/25/21 Denita Rai, KERRY [address] [facility] [place] [address] Specialty Admitting Representative Hematology/Oncology 10/25/21 Minna Madrigal LSW Hammer Fitter 01/08/23 Maryjo Fish, STATION MECHANIC HELPER.RN DERMATOLOGY [address] [facility] [place] [address] Hospice & Palliative Medicine 05/22/23 Julieth Tapia RN Specialty Admitting Representative Hospice & Palliative Medicine 05/22/23 Calibrator Barometers Relationship Specialty Start Date End Date Enrique Esposito, STATION MECHANIC HELPER.RN DERMATOLOGY [address] [place] [address] [phone] PCP - General 08/15/23 Sofie Diana MD [address], [place] [phone] Primary Staff Physician Cardiology 07/03/21 Verito Whelan MD [address] [place], [place] [phone] Referring Pulmonary Disease 10/04/21 Pito Grigsby MD [address] [place] [address] [place] [address] Physician Hematology/Oncology 10/25/21 Brent Miller, STATION MECHANIC HELPER.RN DERMATOLOGY [address] [facility] [place] [address] Nurse Practitioner Hematology/Oncology 10/25/21 Denita Rai, KERRY [address] [facility] [place] [address] Specialty Admitting Representative Hematology/Oncology 10/25/21 Minna Madrigal, FIRE EXTINGUISHER CHARGER Hammer Fitter 01/08/23 Maryjo Fish, STATION MECHANIC HELPER.RN DERMATOLOGY [address] [place] [address] [place] [address] Hospice & Palliative Medicine 05/22/23 Julieth Tapia, RN Specialty Admitting Representative Hospice & Palliative Medicine 05/22/23 Calibrator Barometers Relationship Specialty Start Date End Date Enrique Esposito, STATION MECHANIC HELPER.RN DERMATOLOGY [address] [place] [address] PCP - General 08/15/23 Sofie Diana MD [address], [place] [phone] Primary Staff Physician Cardiology 07/03/21 Verito Whelan MD [address], [place] [phone] Referring Pulmonary Disease 10/04/21 Pito Grigsby MD [address] [place] [address] [place] [address] Physician Hematology/Oncology 10/25/21 Brent Miller, STATION MECHANIC HELPER.RN DERMATOLOGY [address] [place] [address] [place] [address] Nurse Practitioner Hematology/Oncology 10/25/21 Denita Rai, KERRY [address] [place] [address] [place] [address] Specialty Admitting Representative Hematology/Oncology 10/25/21 Minna Madrigal, MARGARET Hammer Fitter 01/08/23 Maryjo Fish, STATION MECHANIC HELPER.RN DERMATOLOGY [address] [place] [address] [place] [address] Hospice & Palliative Medicine 05/22/23 Julieth Tapia, RN Specialty Admitting Representative Hospice & Palliative Medicine 05/22/23 Calibrator Barometers Relationship Specialty Start Date End Date Enrique Esposito, STATION MECHANIC HELPER.RN DERMATOLOGY [address] [place] [address]11 PCP - General 08/15/23 Sofie Diana MD [address], [place] [phone] Primary Staff Physician Cardiology 07/03/21 Verito Whelan MD [address], [place] [id number] Referring Pulmonary Disease 10/04/21 Pito Grigsby MD [address] [place] [address] [place] [address] Physician Hematology/Oncology 10/25/21 Brent Miller, STATION MECHANIC HELPER.RN DERMATOLOGY [address] [place] [address] [place] [address] Nurse Practitioner Hematology/Oncology 10/25/21 Denita Rai, KERRY [address] [facility] [place] [address] Specialty Admitting Representative Hematology/Oncology 10/25/21 Minna Madrigal LSW Hammer Fitter 01/08/23 Maryjo Fish, STATION MECHANIC HELPER.RN DERMATOLOGY [address] [facility] [place] [address] Hospice & Palliative Medicine 05/22/23 Julieth Tapia RN Specialty Admitting Representative Hospice & Palliative Medicine 05/22/23 Calibrator Barometers Relationship Specialty Start Date End Date Enrique Esposito, STATION MECHANIC HELPER.RN DERMATOLOGY [address] [place] [address] [phone] PCP - General 08/15/23 Sofie Diana MD [address], [place] [phone] Primary Staff Physician Cardiology 07/03/21 Verito Whelan MD [address] [place], [place] [phone] Referring Pulmonary Disease 10/04/21 Pito Grigsby MD [address] [place] [address] [place] [address] Physician Hematology/Oncology 10/25/21 Brent Miller, STATION MECHANIC HELPER.RN DERMATOLOGY [address] [place] [address] [place] [address] Nurse Practitioner Hematology/Oncology 10/25/21 Denita Rai, KERRY [address] [place] [address] [place] [address] Specialty Admitting Representative Hematology/Oncology 10/25/21 Minna Madrigal LSW Hammer Fitter 01/08/23 Maryjo Fish, STATION MECHANIC HELPER.RN DERMATOLOGY [address] [facility] [place] [phone] Hospice & Palliative Medicine 05/22/23 Julieth Tapia, RN Specialty Admitting Representative Hospice & Palliative Medicine 05/22/23 Calibrator Barometers Relationship Specialty Start Date End Date Enrique Esposito, STATION MECHANIC HELPER.RN DERMATOLOGY [address] [place] [address] [phone] PCP - General 08/15/23 Sofie Diana MD [address], [place] [phone] Primary Staff Physician Cardiology 07/03/21 Verito Whelan MD [address] [place], [place] [phone] Referring Pulmonary Disease 10/04/21 Pito Grigsby MD [address] [place] [address] [place] [address] Physician Hematology/Oncology 10/25/21 Brent Miller, STATION MECHANIC HELPER.RN DERMATOLOGY [address] [facility] [place] [address] Nurse Practitioner Hematology/Oncology 10/25/21 Denita Rai, KERRY [address] [place] [address] [place] [address] Specialty Admitting Representative Hematology/Oncology 10/25/21 Minna Madrigal LSW Hammer Fitter 01/08/23 Maryjo Fish, STATION MECHANIC HELPER.RN DERMATOLOGY [address] [facility] [place] [address] Hospice & Palliative Medicine 05/22/23 Julieth Tapia, RN Specialty Admitting Representative Hospice & Palliative Medicine 05/22/23 Calibrator Barometers Relationship Specialty Start Date End Date Enrique Espostio, STATION MECHANIC HELPER.RN DERMATOLOGY [address] [place] [id number] PCP - General 08/15/23 Sofie Diana MD [address] [place] [address] Primary Staff Physician Cardiology 07/03/21 Verito Whelan MD [address] [place] [address] Referring Pulmonary Disease 10/04/21 Pito Grigsby MD [address] [facility] [place] [address] Physician Hematology/Oncology 10/25/21 Brent Miller, STATION MECHANIC HELPER.RN DERMATOLOGY [address] [facility] [place] [address] Nurse Practitioner Hematology/Oncology 10/25/21 Denita Rai, KERRY [address] [place] [address] [place] [address] Specialty Admitting Representative Hematology/Oncology 10/25/21 Minna Madrigal LSW Hammer Fitter 01/08/23 Maryjo Fish, STATION MECHANIC HELPER.RN DERMATOLOGY [address] [place] [address] [place] [address] Hospice & Palliative Medicine 05/22/23 Julieth Tapia, RN Specialty Admitting Representative Hospice & Palliative Medicine 05/22/23 Calibrator Barometers Relationship Specialty Start Date End Date Enrique Esposito, STATION MECHANIC HELPER.RN DERMATOLOGY [address] [place] [address] 43854 PCP - General 08/15/23 Sofie Diana MD [address] [place] [address] Primary Staff Physician Cardiology 07/03/21 Verito Whelan MD [address] [place] [address] Referring Pulmonary Disease 10/04/21 Pito Grigsby MD [address] [place] [address] [place] [address] Physician Hematology/Oncology 10/25/21 Brent Miller, STATION MECHANIC HELPER.RN DERMATOLOGY [address] [place] [address] [place] [address] Nurse Practitioner Hematology/Oncology 10/25/21 Denita Rai, KERRY [address] [place] [address] [place] [address] Specialty Admitting Representative Hematology/Oncology 10/25/21 Minna Madrigal LSW Hammer Fitter 01/08/23 Maryjo Fish, STATION MECHANIC HELPER.RN DERMATOLOGY [address] [place] [address] [place] [address] Hospice & Palliative Medicine 05/22/23 Julieth Tapia, KERRY Specialty Admitting Representative Hospice & Palliative Medicine 05/22/23 Team Status: Active Member Role Status Dates NON STAFF Primary Care Provider Active Team Status: Inactive Member Role Status Dates NON STAFF Primary Care Provider Active Start: February 07, 2024 End: February 07, 2024 Luis Dominguez MD Emergency Provider Active Star t: February 07, 2024 End: February 07, 2024 Calibrator Barometers Relationship Specialty Start Date End Date Enrique Esposito, STATION MECHANIC HELPER.RN DERMATOLOGY [address] [place] [address] [phone] PCP - General 08/15/23 Sofie Diana MD [address] [place] [address] Primary Staff Physician Cardiology 07/03/21 Verito Whelan MD [address] [place] [address] Referring Pulmonary Disease 10/04/21 Pito Grigsby MD [address] [place] [address] [place] [address] Physician Hematology/Oncology 10/25/21 Brent Miller, STATION MECHANIC HELPER.RN DERMATOLOGY [address] [place] [address] [place] [address] Nurse Practitioner Hematology/Oncology 10/25/21 Denita Rai, KERRY [address] [place] [address] [place] [address] Specialty Admitting Representative Hematology/Oncology 10/25/21 Minna Madrigal LSW Hammer Fitter 01/08/23 Maryjo Fish, STATION MECHANIC HELPER.RN DERMATOLOGY [address] [place] [address] [place] [address] Hospice & Palliative Medicine 05/22/23 Julieth Tapia, RN Specialty Admitting Representative Hospice & Palliative Medicine 05/22/23 Calibrator Barometers Relationship Specialty Start Date End Date Enrique Esposito, STATION MECHANIC HELPER.RN DERMATOLOGY [address] [place] [address] [id number] PCP - General 08/15/23 Sofie Diana MD [address], [place] [phone] Primary Staff Physician Cardiology 07/03/21 Verito Whelan MD [address], [place] [phone] Referring Pulmonary Disease 10/04/21 Pito Grigsby MD [address] [place] [place] [address] [place] [address] Physician Hematology/Oncology 10/25/21 Brent Miller, STATION MECHANIC HELPER.RN DERMATOLOGY [address] [place] [address] [place] [address] Nurse Practitioner Hematology/Oncology 10/25/21 Denita Rai, KERRY [address] [place] [address] [place] [address] Specialty Admitting Representative Hematology/Oncology 10/25/21 Minna Madrigal LSW Hammer Fitter 01/08/23 Maryjo Fish, STATION MECHANIC HELPER.RN DERMATOLOGY [address] [place] [address] [place] [address] Hospice & Palliative Medicine 05/22/23 Julieth Tapia RN Specialty Admitting Representative Hospice & Palliative Medicine 05/22/23 Calibrator Barometers Relationship Specialty Start Date End Date Enrique Esposito, STATION MECHANIC HELPER.RN DERMATOLOGY [address] [place] [id number] PCP - General 08/15/23 Sofie Diana MD [address] [place], [place] [id number] Primary Staff Physician Cardiology 07/03/21 Verito Whelan MD [address] [place], [place] [id number] Referring Pulmonary Disease 10/04/21 Pito Grigsby MD [address] [place] [address] [place] [address] Physician Hematology/Oncology 10/25/21 Brent Miller STATION MECHANIC HELPER.RN DERMATOLOGY [address] [place] [address] [place] [address] Nurse Practitioner Hematology/Oncology 10/25/21 Denita Rai, RN [address] [place] [address] [place] [address] Specialty Admitting Representative Hematology/Oncology 10/25/21 Minna Madrigal LSW Hammer Fitter 01/08/23 Maryjo Fish, STATION MECHANIC HELPER.RN DERMATOLOGY [address] [place] [address] [place] [address] Hospice & Palliative Medicine 05/22/23 Julieth Tapia RN Specialty Admitting Representative Hospice & Palliative Medicine 05/22/23 Reason for Visit (unrecogniz ed section and content) Reason Comments Nutrition Assessment Specialty Diagnoses / Procedures Referred By Contac t Referred To Contact Nutrition / NUTRI SAND Diagnoses Nutri appt Procedures OFFICE/OUTPATIENT ESTABLISHED MOD MDM 30 MIN EST PATIENT Self Valerie Murphyline, RD [address] [place] [address] Referral ID Status Reason Start Date Expiration Date Visits Re quested Visits Authorized [id number] Closed 10/20/2023 07/20/2024 1 1 Reason Comments Lung Cancer Specialty Diagnoses / Procedures Referred By Contac t Referred To Contact Hematology / HEMATOLOGY/ONCOLOGY Diagnoses Malignant neoplasm of unspecified part of left bronchus or lung 4 week follow up - Lumakras oral med Procedures OFFICE/OUTPATIENT ESTABLISHED HIGH MDM 40 MIN OFFICE/OUTPATIENT ESTABLISHED MOD MDM 30 MIN OFFICE/OUTPATIENT ESTABLISHED LOW MDM 20 MIN OFFICE/OUTPATIENT ESTABLISHED SF MDM 10 MIN EST PATIENT Enrique Esposito, STATION MECHANIC HELPER.RN DERMATOLOGY [address] [place] [address] Pito Grigsby MD [address] [place] [address] [place] [address] Referral ID Status Reason Start Date Expiration Date Visits Re quested Visits Authorized [id number] Closed 09/04/2023 07/20/2024 1 1 Specialty Diagnoses / Procedures Referred By Contac t Referred To Contact Radiation Oncology / RADIATION ONCOLOGY Diagnoses 2 Week Post XRT Procedures EST POST 90 DAY RAD TX Jyoti Limon MD [address] [place] [address] [place] [address] Jyoti Limon MD [address] [place] [address] [place] [address] Referral ID Status Reason Start Date Expiration Date V isits Requested Visits Authorized [id number] Authorized 11/12/2022 07/20/2023 99 99 Specialty Diagnoses / Procedures Referred By Contac t Referred To Contact [facility] Diagnoses Malignant neoplasm of upper lobe, left bronchus or lung Procedures REFERRAL TO [facility] FINANCIAL COUNSELOR iPto Grigsby MD [address] [place] [address] [place] [address] [facility] [address] [place] [address] Referral ID Status Reason Start Date Expiration Date Visits Requested Visits Authorized [id number] Pending Review Financial Clearance Required - OON Payor OON/Self Pay Override 12/11/2021 03/11/2022 99 99 Reason Comments Lung Cancer follow up Reason Comments Radio Main J1 Reason Comments Care Coordination Reason Comments Care Coordination Education Appointmen t Reason Comments Care Coordination Antiemetics & Folic Acid Reason Comments Consult Specialty Diagnoses / Procedures Referred By Contac t Referred To Contact Oncology Diagnoses Malignant neoplasm of upper lobe of left lung (HCC) Procedures CONSULT TO ONCOLOGY OFFICE/OUTPATIENT [facility] 60-74 MINUTES Aracelis Carrillo, STATION MECHANIC HELPER.RN DERMATOLOGY [address] [place] [address] Referral ID Status Reason Start Date Expiration Date V isits Requested Visits Authorized [id number] Closed PCP Requested Referral 10/11/2021 10/11/2022 1 1 Reason Comments First Time Treatment Education Reason Comments First Time Treatment Education Pemetrexe d, Cisplatin Reason Comments Care Coordination Folic Acid Reason Comments Care Coordination Research Trial Reason Comments Care Coordination MRI Specialty Diagnoses / Procedures Referred By Contac t Referred To Contact Radiation Oncology Diagnoses Malignant neoplasm of upper lobe of left lung (HCC) Procedures RAD/ONC CONSULT OFFICE/OUTPATIENT NEW HIGH MDM 60-74 MINUTES Pito Grigsby MD [address] [place] [address] [place] [address] Referral ID Status Reason Start Date Expiration Date V isits Requested Visits Authorized [id number] Closed PCP Requested Referral 10/22/2021 10/22/2022 1 1 Reason Comments Lab Orders Specialty Diagnoses / Procedures Referred By Contac t Referred To Contact Diagnoses Malignant neoplasm of upper lobe of left lung (HCC) Procedures PALONOSETRON HCL CISPLATIN 10 MG INJECTION DIPHENHYDRAMINE HCL INJECTIO INJECTION, PEMETREXED, NOT OTHERWISE SPECIFIED, 10 MG Pito Grigsby MD [address] [place] [address] [place] [address] [facility] [address] [place] [address] Referral ID Status Reason Start Date Expiration Date V isits Requested Visits Authorized [id number] Authorized 10/22/2021 01/15/2022 4 4 Reason Comments Care Coordination C1D1 Post Treatment Call Reason Comments Care Coordination Lab Reason Comments Care Coordination Lab Results Reason Comments Care Coordination BMP Results Reason Comments Care Coordination Hypertension Reason Comments Care Coordination Discharge Follow Up Call Reason Comments Care Coordination Hypotension Reason Comments Patient Update Blood Pressure Reason Comments Lung Cancer follow up per phone encounter Reason Comments Care Coordination Low Blood Pressure Reason Comments Future Appointment Reason Comments Chemotherapy Treatment Carboplatin, Alim ta Reason Comments Lung Cancer OTV 1 week Reason Comments Care Coordination C1D1 Post Treatment Call (Carboplatin) Reason Comments Missed Appointment Request to Reschedul e Specialty Diagnoses / Procedures Referred By Contac t Referred To Contact [facility] Diagnoses Malignant neoplasm of upper lobe, left bronchus or lung Procedures REFERRAL TO [facility] FINANCIAL COUNSELOR Pito Grigsby MD [address] [place] [address] [place] [address] [facility] [place] [address] Reason Comments Results hypokalemia Reason Comments Spirometry Specialty Diagnoses / Procedures Referred By Contac t Referred To Contact [facility] Diagnoses Chronic obstructive pulmonary disease, unspecified COPD type (HCC) Lung nodule Procedures LUNG DIFFUSION CAPACITY (DLCO) DIFFUSING CAPACITY Verito Whelan MD [address] [place] [address] [facility] [address] [place] [id number] Referral ID Status Reason Start Date Expiration Date V isits Requested Visits Authorized [id number] Closed Auto-Generate d Referral 11/09/2021 10/11/2022 1 1 Specialty Diagnoses / Procedures Referred By Contac t Referred To Contact [facility] Diagnoses Chronic obstructive pulmonary disease, unspecified COPD type (HCC) Lung nodule Procedures SPIROMETRY WITH DILATOR IF OBSTRUCTED BRNCDILAT RSPSE SPMTRY PRE&[place] [address] [place] [address] [address] Referral ID Status Reason Start Date Expiration Date V isits Requested Visits Authorized [id number] Closed Auto-Generate d Referral 11/09/2021 10/11/2022 1 1 Reason Comments Recheck Reason Comments Patient Education Reason Comments Transfusion Reason Comments Care Coordination Rash Reason Comments Refill Request Reason Comments Care Coordination Rash Reason Comments Radiotherapy On-treatment Visit Reason Onset Date Comments Refill Request 04/01/2022 Reason Comments Patient Update Reason Onset Date Comments Refill Request 04/29/2022 Reason Comments Medication Problem Reason Comments Appointment Confirmation Confirmed Reason Comments Patient Update Appointment Reason Comments Lung Cancer Reason Comments Lung Cancer Follow up Reason Comments Care Coordination Respiratory Symptoms Reason Comments Biopsy Request Reason Comments Lung Cancer Follow up Reason Comments Care Coordination Pain Specialty Diagnoses / Procedures Referred By Contac t Referred To Contact Diagnoses Malignant neoplasm of upper lobe of left lung (HCC) Pito Grigsby MD [address] [place] [address] [place] [address] [employer] [address] [place] [address] Referral ID Status Reason Start Date Expiration Date V isits Requested Visits Authorized [id number] Authorized 10/16/2022 01/14/2023 99 99 Reason Comments Care Coordination Nutrition Consult Reason Onset Date Comments Lung Cancer Simulation Request Form 10/21/2022 Reason Comments Patient Question Reason Onset Date Comments Refill Request 11/11/2022 Reason Comments Insurance Authorization Oxycodone-Acetam inophen Reason Comments Depression Decreased Appetite Specialty Diagnoses / Procedures Referred By Contac t Referred To Contact Radiation Oncology / RADIATION ONCOLOGY Diagnoses 2 Week Post XRT Procedures EST POST 90 DAY RAD TX Jyoti Limon MD [address] [place] [address] Jyoti Limon MD [address] [place] [address] Reason Comments Lung Cancer Treatment visit Reason Comments Care Coordination Sore Throat; Cough Reason Comments Care Coordination MMW Update Reason Comments Care Coordination Hemoptysis Reason Comments No Show Reason Comments Social Work Services Reason Comments Records faxed Reason Onset Date Comments Refill Request 01/13/2023 Xanax Reason Comments Appointment Reason Comments Care Coordination Ear Infection Reason Comments Radiology NM Reason Comments Care Coordination Cough; Cold Symptoms Reason Onset Date Comments Refill Request 03/10/2023 Reason Comments Follow Up Missed Appointment Reason Comments Care Coordination Vaccine Question Reason Comments Care Coordination TSH Results Reason Onset Date Comments Refill Request 05/05/2023 Reason Comments Care Coordination Sore Throat Reason Comments Treatment Planning Reason Onset Date Comments Refill Request 05/13/2023 Reason Comments Care Coordination Pain; Constipation Reason Comments Lung Cancer New patient consult Reason Onset Date Comments Refill Request 05/16/2023 Reason Comments Care Coordination Throat Pain Reason Comments Oral Anti-cancer Agent Education [place] Reason Comments Care Coordination Oral Anti-Cancer Age nt Follow Up Reason Comments Care Coordination [place] Start Date Reason Comments Radiology MRI Specialty Diagnoses / Procedures Referred By Contac t Referred To Contact [facility] Diagnoses Malignant neoplasm of upper lobe of left lung (HCC) Procedures MRI BRAIN WO/W IVCON MRI BRAIN BRAIN STEM W/O W/CONTRAST MATERIAL Renetta Ponce MD [address] [place] [address] [facility] [place] [address] Referral ID Status Reason Start Date Expiration Date V isits Requested Visits Authorized [id number] Closed Auto-Generate d Referral 10/26/2021 11/18/2021 1 1 Reason Comments Follow Up Pet scan results Specialty Diagnoses / Procedures Referred By Contac t Referred To Contact Ent - Otolaryngology Diagnoses Tonsillar mass Procedures CONSULT TO ENT OFFICE/OUTPATIENT NEW HIGH MDM 60-74 MINUTES Pito Grigsby MD [address] [place] [address] Referral ID Status Reason Start Date Expiration Date V isits Requested Visits Authorized [id number] Closed PCP Requested Referral 05/13/2023 05/12/2024 1 1 Reason Comments Consult Reason Onset Date Comments Erroneous encounter-disregard 06/03/2023 Reason Onset Date Comments Simulation Request Form 06/10/2023 Reason Comments Palliative Care Specialty Diagnoses / Procedures Referred By Contac t Referred To Contact HEMATOLOGY/ONCOLOGY Diagnoses 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) Cancer related pain Procedures CONSULT TO PALLIATIVE CARE OFFICE/OUTPATIENT NEW HIGH MDM 60-74 MINUTES Brent Miller, STATION MECHANIC HELPER.RN DERMATOLOGY [address] [place] [address] [place] [facility] [address] [place] [id number] Referral ID Status Reason Start Date Expiration Date V isits Requested Visits Authorized [id number] Closed PCP Requested Referral 05/15/2023 05/14/2024 1 1 Reason Comments Care Coordination TSH Result Reason Comments Nutrition Assessment No show Reason Onset Date Comments Refill Request 10/20/2023 Reason Comments Pain Specialty Diagnoses / Procedures Referred By Contac t Referred To Contact Hematology / HEMATOLOGY/ONCOLOGY Diagnoses Follow-up exam 4 week follow up - Lumakras oral med Procedures OFFICE/OUTPATIENT ESTABLISHED HIGH MDM 40 MIN EST PATIENT Enrique Esposito, STATION MECHANIC HELPER.RN DERMATOLOGY [address] [place] [address] Pito Grigsby MD [address] [place] [address] Referral ID Status Reason Start Date Expiration Date V isits Requested Visits Authorized [id number] Authorized 10/20/2023 07/20/2024 99 99 Reason Comments Results Reason Comments Lung Cancer Follow up Specialty Diagnoses / Procedures Referred By Contac t Referred To Contact Hematology / HEMATOLOGY/ONCOLOGY Diagnoses Malignant neoplasm of unspecified part of left bronchus or lung 4 week follow up - Lumakras oral med Procedures OFFICE/OUTPATIENT ESTABLISHED HIGH MDM 40 MIN OFFICE/OUTPATIENT ESTABLISHED MOD MDM 30 MIN OFFICE/OUTPATIENT ESTABLISHED LOW MDM 20 MIN OFFICE/OUTPATIENT ESTABLISHED SF MDM 10 MIN EST PATIENT Enrique Esposito, STATION MECHANIC HELPER.RN DERMATOLOGY [address] [place] [address] Pito Grigsby MD [address] [place] [address] Reason Comments Care Coordination Call Request Reason Comments Care Coordination Appointments Specialty Diagnoses / Procedures Referred By Contac t Referred To Contact Hospice & Palliative Medicine / PALLIATIVE MEDICINE Diagnoses 3 month follow up Procedures OFFICE/OUTPATIENT ESTABLISHED HIGH MDM 40 MIN EST PATIENT Maryjo Fish, STATION MECHANIC HELPER.RN DERMATOLOGY [address] [place] [address] Maryjo Fish, STATION MECHANIC HELPER.RN DERMATOLOGY [address] [place] [address] Referral ID Status Reason Start Date Expiration Date V isits Requested Visits Authorized [id number] Authorized 10/29/2023 07/20/2024 99 99 Reason Comments Orders Reason Comments Research IRB [id number] Informed Consent Reason Onset Date Comments Simulation Request Form 12/02/2023 Consult Specialty Diagnoses / Procedures Referred By Contac t Referred To Contact Radiation Oncology / RADIATION ONCOLOGY Diagnoses New pain Procedures EST PATIENT NEW PROBLEM Pcp, No, STATION MECHANIC HELPER Jyoti Limon MD [address] [place] [address] Referral ID Status Reason Start Date Expiration Date V isits Requested Visits Authorized [id number] Authorized 12/02/2023 07/20/2024 99 99 Reason Comments Patient Update Medication Problem Reason Onset Date Comments Refill Request 12/24/2023 Synthroid Reason Comments Care Coordination Pain Reason Comments Insurance Authorization Reason Comments Insurance Authorization Oxy IR 10 mg Reason Comments Care Coordination insomnia Reason Comments Care Coordination Pain regimen review. Reason Onset Date Comments Refill Request 02/04/2024 Reason Comments Care Coordination Shortness of Breath Reason Comments Care Coordination Home oxygen Reason Comments Care Coordination Pt Update Goals (unrecognized section and content) Goals may be documented in a n alternate sectionGoals may be documented in an alternate sectionGoals may be documented in an alternate section FOR RECORDS PERTAINING TO PATIENTS WHO ARE OR HAVE BEEN ENROLLED IN A CHEMICAL DEPENDENCY/SUBSTANCEABUSE PROGRAM, SOME INFORMATION MAY BE OMITTED. This clinical summary was aggregated from multiple sources. Caution should be exercised in using it in the provision of clinical care. This summary normalizes information from multiple sources, and as a consequence, information in this document may materially change the coding, format and clinical context of patient data. In addition, data may be omitted in some cases. CLINICAL DECISIONS SHOULD BE BASED ON THE PRIMARY CLINICAL RECORDS. [employer] provides no warranty or guarantee of the accuracy or completeness of information in this document.
--- NOTE | 2024-02-20 20:20 | ED.NECK1 ---
HPI HPI - Neck Pain/Injury General Chief Complaint: Upper Respiratory Infection Stated Complaint: sore throat Time Seen by Provider: 02/20/24 20:13 Source: patient Mode of arrival: walk-in Limitations: no limitations History of Present Illness HPI Narrative: patient presents complaining of sore throat. States past history of lung CA. states he is currently on chemo. states sore throat last week and was treated by his PCP with antibiotics. states throat remains sore. No fever . Able to swallow Related Data Home Medications ?Medication ?Instructions ?Recorded ?Confirmed atorvastatin 40 mg tablet 40 mg PO DAILY 07/05/23 02/20/24 cilostazol 100 mg tablet 100 mg PO BID 07/05/23 02/20/24 clopidogrel 75 mg tablet 75 mg PO DAILY 07/05/23 02/20/24 isosorbide mononitrate 30 mg 30 mg PO DAILY 07/05/23 02/20/24 tablet,extended release 24 hr levothyroxine 75 mcg tablet 75 mcg PO DAILY 07/05/23 02/20/24 metoprolol tartrate 25 mg tablet 25 mg 07/05/23 naloxone 4 mg/actuation nasal spray intranasal 07/05/23 olanzapine 5 mg tablet 5 mg 07/05/23 oxycodone 5 mg tablet 5 mg 07/05/23 sotorasib 320 mg tablet (Lumakras) 960 mg PO 07/05/23 Previous Rx's ?Medication ?Instructions ?Recorded prednisone 20 mg tablet 40 mg (2 x 20 mg) PO DAILY 3 days 03/06/23 #6 tabs BMX solution 10 ml PO Q8H PRN mouth/throat pain 07/05/23 #150 mL amoxicillin 875 mg tablet 875 mg PO Q12H #20 tabs 07/05/23 Allergies Allergy/AdvReac Type Severity Reaction Status Date / Time No Known Drug Allergies Allergy Verified 02/20/24 20:09 Opioid HPI Opioid Management Most Recent Opioid Data: No Data to Display Review of Systems ROS Status of ROS 10 or more systems reviewed and unremarkable except as noted in history and below PFSH PFSH Social History Smoking status: Former smoker Exam Constitutional Vital Signs, click to edit/add: Last Vital Signs Temp 98.1 F 02/20/24 20:04 Pulse 77 02/20/24 23:33 Resp 18 02/20/24 23:33 BP 171/82 H 02/20/24 23:33 Pulse Ox 98 02/20/24 23:33 O2 Del Method Room Air 02/20/24 20:04 Common normals: no apparent distress, average body habitus, oriented x3, no limitations, healthy appearing, alert and well nourished [facility] Common normals: normocephalic and head/scalp atraumatic Other: asymmetry of the soft palate. right side is raised Eye Common normals: PERRL and EOMs intact bilaterally Neck & C-Spine Common normals: full ROM, no lymphadenopathy and supple Other: no stridor Respiratory Common normals: normal respiratory effort, no retractions, no use of accessory muscles and clear to auscultation bilaterally Cardio Common normals: regular rate, regular rhythm, S1 normal heart sound and S2 normal heart sound GI Common normals: Normal to inspection, nondistended, normoactive bowel sounds present, soft to palpation and non-tender Extremity Common normals: normal to inspection and full ROM Neuro Common normals: oriented x3, CN's II-XII intact bilaterally, moves all extremities and no focal motor deficits Psych Appearance: grossly normal Course Vital Signs Vital signs: Vital Signs Temperature 98.1 F 02/20/24 20:04 Pulse Rate 80 02/20/24 20:04 Respiratory Rate 18 02/20/24 20:04 Blood Pressure 161/91 H 02/20/24 20:04 Pulse Oximetry 100 02/20/24 20:04 Oxygen Delivery Method Room Air 02/20/24 20:04 Temperature 98.1 F 02/20/24 20:04 Pulse Rate 77 02/20/24 23:33 Respiratory Rate 18 02/20/24 23:33 Blood Pressure 171/82 H 02/20/24 23:33 Pulse Oximetry 98 02/20/24 23:33 Oxygen Delivery Method Room Air 02/20/24 20:04 MDM - Neck Pain/Injury Medical Records Medical records narrative: patient has past history of lung CA. Presents complaining of sore throat for past 1-2 weeks. Exam with asymmetry of the soft palate. pharynx mild erythema. patient able to swallow and breathing is normal. CT with mass base of the tongue. Discussed with Radiologist Dr Lombardi and the airway is patent. Patient informed of the importance with followup with oncologist for ENT referral Lab Data Labs: Lab Results 02/20/24 02/20/24 Range/Units 20:14 20:54 WBC 4.8 (4.0-11.0) 10^3/uL RBC 3.46 L (4.70-6.10) 10^6/uL Hgb 11.0 L (14.0-18.0) g/dL Hct 33.1 L (42.0-54.0) % MCV 95.7 H (80.0-94.0) fL MCH 31.8 (25.9-34.0) pg MCHC 33.2 (29.9-35.2) g/dL RDW 13.1 (11.0-15.0) % Plt Count 235 (150-450) 10^3/uL MPV 11.1 (9.5-13.5) fL Neut % (Auto) 64.6 (43.0-75.0) % Lymph % (Auto) 16.1 L (20.5-60.0) % Lyon % (Auto) 15.2 H (1.7-12.0) % Eos % (Auto) 2.9 (0.9-7.0) % Baso % (Auto) 0.8 (0.2-2.0) % Neut # (Auto) 3.1 (1.4-6.5) 10^3/uL Lymph # (Auto) 0.8 L (1.2-3.8) 10^3/uL Lyon # (Auto) 0.7 (0.3-0.8) 10^3/uL Eos # (Auto) 0.1 (0.0-0.7) 10^3/uL Baso # (Auto) 0.0 (0.0-0.1) 10^3/uL Abs Immat Gran (auto) 0.02 (0.00-0.03) 10^3/uL Imm/Tot Granulo (auto) 0.4 (0.0-0.5) % Sodium 136 (136-145) mmol/L Potassium 3.7 (3.5-5.1) mmol/L Chloride 101 (98-107) mmol/L Carbon Dioxide 28.1 (21.0-32.0) mmol/L Anion Gap 10.6 BUN 22.0 H (7.0-18.0) mg/dL Creatinine 1.22 (0.70-1.30) mg/dL Est GFR ( Amer) >60 (>=60) Est GFR (Non-Af Amer) 59 L (>=60) BUN/Creatinine Ratio 18.0 Glucose 96 (74-106) mg/dL Calcium 9.2 (8.5-10.1) mg/dL Streptococcus Screen Negative Imaging Data Chest x-ray: Radiologist's impression: ITS Impressions Soft Tissue Neck CT 02/20/24 20:25 IMPRESSION: 1. Abnormal lobulated enhancement noted along the posterolateral margin of the tongue base on the right extending into the posterolateral and lateral aspect of the pharynx. Recommend further evaluation by ENT with direct visualization. Neoplasm not excluded. 2. Cervical spondylosis. 3. No gross evidence of pathologic adenopathy. No necrotic or matted lymph nodes are present. Electronically authenticated by: KRISTEN LOMBARDI Date: 02/20/2024 23:08 Discharge Plan Discharge Stand Alone Forms: Portal Instructions Chief Complaint: Upper Respiratory Infection Clinical Impression: Mass of tongue Patient Disposition: Home, Self-Care Prescriptions / Home Meds: No Action prednisone 20 mg tablet 40 mg PO DAILY 3 Days Qty: 6 0RF atorvastatin 40 mg tablet 40 mg PO DAILY cilostazol 100 mg tablet 100 mg PO BID clopidogrel 75 mg tablet 75 mg PO DAILY isosorbide mononitrate 30 mg tablet extended release 24 hr 30 mg PO DAILY levothyroxine 75 mcg tablet 75 mcg PO DAILY metoprolol tartrate 25 mg tablet 25 mg olanzapine 5 mg tablet 5 mg oxycodone 5 mg tablet 5 mg naloxone 4 mg/actuation spray,non-aerosol INTRANASAL Lumakras 320 mg tablet 960 mg PO amoxicillin 875 mg tablet 875 mg PO Q12H Qty: 20 0RF BMX solution 10 ml PO Q8H PRN (Reason: mouth/throat pain) Qty: 150 0RF Rx Instructions: 50mL benadryl, 50mL maalox, 50mL lidocaine mixed; dose is 10mL gargled and swallowed q8hrs prn mouth/throat soreness Print Language: Latvian Instructions: Pharyngitis (ED) Additional Instructions: follow up with your cancer doctor friday for referral to ENT Referrals: Physician,Non-Staff, MD [Physician] - 1 week
--- NOTE | 2024-02-20 20:25 | CT_ITS ---
[address] [address] Patient Name: CRISTAL BARRY MRN: [id number] date: 1955 Sex: M Assigned Patient Location: ER Current Patient Location: Accession/Order Number: [id number] Exam Date: 02/20/2024 21:31 Report Date: 02/20/2024 23:08 At the request of: MISTI EISENBERG Procedure: CT soft tissue neck w con EXAM: CT soft tissue neck w con INDICATION: 69 years old; Male. Symptom/Location/Duration: Sore throat for one week. TECHNIQUE: CT examination of the neck. Axial, coronal and sagittal reformats were reviewed. 100 mL of Omnipaque 300 was injected intravenously without complication. Ionizing radiation dose reduced via iterative reconstruction/FBP blend and body size kV/mA adjustment. COMPARISON: None FINDINGS: AIRWAY: PARANASAL SINUSES AND MASTOID AIR CELLS: The frontal and anterior ethmoid sinuses are not included in the examination. Remaining visualized sinuses are clear. Mastoid sclerosis on the left. Residual mastoid air cells and middle ears are clear on the left. Mastoids and middle ears are clear on the right. NASOPHARYNX: Normal in appearance. OROPHARYNX: Normal in appearance. ORAL CAVITY: There is asymmetric ill-defined enhancement present in the posterior aspect of the tongue along the lateral margin of the oropharynx extending along the posterior margin of the pharynx. This is best seen image 32/series 3. Recommend direct visualization. This measures 12.19 x 21.16 mm in diameter. HYPOPHARYNX: Normal in appearance. LARYNX: Normal in appearance. TRACHEA: Patent. SOFT TISSUES: PARAPHARYNGEAL SPACE: Normal and symmetric. CAROTID SPACE: Normal in appearance. FOIL SPINNER SPACE: Normal in appearance. RETROPHARYNGEAL SPACE: Normal in appearance. LYMPH NODES: No pathologic adenopathy is seen. No matted or necrotic lymph nodes are noted. GLANDS: PAROTID: Nonspecific but symmetric intense enhancement of the parotid glands. SUBMANDIBULAR: Nonspecific intense but symmetric enhancement of the submandibular glands. THYROID: No thyroid nodule or adenopathy. MISCELLANEOUS: LUNG APICES: Clear. BONY CERVICAL SPINE: Cervical spondylosis, worse at C5-C6 and C6-7 although diffusely noted. The study is not optimized for complete evaluation of the cervical spine. VISUALIZED BRAIN: A portion of the brain is included. No pathologic enhancement or mass effect is seen. The study cannot exclude all brain pathology. VISUALIZED GLOBES: The orbits aren't completely included. No gross evidence of orbital mass is seen. DENTITION: The patient is edentulous. OTHER: None. CT/CT soft tissue neck w con IMPRESSION: 1. Abnormal lobulated enhancement noted along the posterolateral margin of the tongue base on the right extending into the posterolateral and lateral aspect of the pharynx. Recommend further evaluation by ENT with direct visualization. Neoplasm not excluded. 2. Cervical spondylosis. 3. No gross evidence of pathologic adenopathy. No necrotic or matted lymph nodes are present. Electronically authenticated by: KRISTEN LOMBARDI Date: 02/20/2024 23:08
[2024-02-20] MEDS: 0.9 % SODIUM CHLORIDE 1,000 ML 100 ML IV (20:52)
[2024-02-20 21:01] LABS: Basophils Percent Auto 0.8 % (0.2-2.0); Eosinophils Absolute Auto 0.1 10^3/uL (0.0-0.7); Eosinophils Percent Auto 2.9 % (0.9-7.0); Hematocrit 33.1 % (42.0-54.0); Immature Granulocytes Abs Auto 0.02 10^3/uL (0.00-0.03); Immature Granulocytes Pct Auto 0.4 % (0.0-0.5); Lymphocytes Absolute Auto 0.8 10^3/uL (1.2-3.8); Lymphocytes Percent Auto 16.1 % (20.5-60.0); Mean Corpuscular HGB Conc 33.2 g/dL (29.9-35.2); Mean Corpuscular Hemoglobin 31.8 pg (25.9-34.0); Mean Corpuscular Volume 95.7 fL (80.0-94.0); Mean Platelet Volume 11.1 fL (9.5-13.5); Monocytes Absolute Auto 0.7 10^3/uL (0.3-0.8); Monocytes Percent Auto 15.2 % (1.7-12.0); Neutrophils Absolute Auto 3.1 10^3/uL (1.4-6.5); Neutrophils Percent Auto 64.6 % (43.0-75.0); Platelet Count 235 10^3/uL (150-450); Red Blood Count 3.46 10^6/uL (4.70-6.10); Red Cell Distribution Width 13.1 % (11.0-15.0); White Blood Count 4.8 10^3/uL (4.0-11.0)
[2024-02-20 21:13] LABS: Anion Gap 10.6; Calcium 9.2 mg/dL (8.5-10.1); Carbon Dioxide 28.1 mmol/L (21.0-32.0); Chloride 101 mmol/L (98-107); Estimated GFR (African America >60 (>=60); Estimated GFR (Non-African Ame 59 (>=60); Glucose 96 mg/dL (74-106); Potassium 3.7 mmol/L (3.5-5.1); Sodium 136 mmol/L (136-145)
[2024-02-20 21:56] LABS: Internal Control Within Normal Limits; Strep A Antigen Screen Negative
[2024-02-20 22:15] VITALS: BP 162/83; PULSE 78; O2SAT 98
[2024-02-20 23:33] VITALS: BP 171/82; PULSE 77; O2SAT 98
== END 2024-02-21 00:07 | disposition home or self-care (01) ==
PROVIDERS: Emergency Provider Internal Medicine; PCP Nurse Practitioner
DX: K14.8 Other diseases of tongue (principal); C34.90 Malignant neoplasm of unspecified part of unspecified bronchus or lung; Z79.899 Other long term (current) drug therapy; Z87.891 Personal history of nicotine dependence
CPT/HCPCS: 36415; 70491; 80048; 85025; 87070; 87880; 99285; Q9967

== ENCOUNTER 2024-03-28 03:05 | Inpatient (IN) | payer MEDICARE, MEDICAID, SELFPAY ==
[2024-03-28] VITALS (42 sets, daily range): BP systolic 125–197; BP diastolic 67–90; PULSE 76–129; TEMP 36.6–37.2; O2SAT 75–100; BMI 21.1; BMI 19.0
--- OUTSIDE RECORDS SUMMARY | 2024-03-28 03:17 | XMS_ITS | CCD ---
Author Organization [facility] Team Providers Care Chain Tender Name Role Phone UNKNOWN, PROVIDER Admitting Unavailable UNKNOWN, PROVIDER Attending Unavailable CHRISTINA AZUL Referring Unavailable CHRISTINA AZUL Primary Care Unavailable Adalgisa KHOURY, Heba Unavailable Christina Azul MD Primary Care Provider Tip KHOURY, Umdominique Unavailable Nina Grigsby MD R Unavailable Paul PLANOGRAPH OPERATOR.SOLAR PANEL TECHNICIANShery Unavailable Fredi PAYNE, Denita Unavailable Adalgisa KHOURY, Heba Unavailable Christina Azul MD Primary Care Provider Tip KHOURY, Umur Unavailable Seb KHOURY, Nina R Unavailable Paul PLANOGRAPH OPERATOR.SOLAR PANEL TECHNICIAN Patricia Unavailable Fredi PAYNE, Denita Unavailable [phone] AMRITA Swann Attending Provider NO FAMILY, PHYSICIAN Primary Care Provider Unava ilable Adalgisa KHOURY, Heba Unavailable Christina Azul MD Primary Care Provider Fredi PAYNE, Denita Unavailable [phone] Christina Azul MD Primary Care Provider Adalgisa KHOURY, Heba Unavailable Christina Azul MD Primary Care Provider Tip KHOURY, Verito Unavailable [phone] Seb KHOURY, Nina Naranjo Unavailable Paul PLANOGRAPH OPERATOR.Patricia VILLEDA Unavailable Fredi PAYNE, Denita Unavailable LOVE ALBERTS Consulting Unavailable ERICKA ., VILMA Attending Unavailable ERICKA ., VILMA Admitting Unavailable AZUL ., DR CHRISTINA Brothers Primary Care Unavailable ERICKA ., VILMA Consulting Unavailable AR, DR YUNIOR Naranjo Consulting Unavailable HOY ., DR MARTINEZ Attending Unavailable HOY ., DR MARTINEZ Admitting Unavailable AZUL ., DR CHRISTINA Brothers Primary Care Unavailable HOY ., DR MARTINEZ Consulting Unavailable REINECK, DR JANICE Young Consulting Unavailrome WHALEN, MARICRUZ Consulting Unavailable JOSUE SINGH Consulting Unavailable HARMONY, LEA Consulting Unavailable PAUL, DR PATRICIA Ramires Consulting Unavailable PAUL, DR PATRICIA Ramires Attending Unavailable PAUL, DR PATRICIA Ramires Admitting Unavailable AZUL ., DR CHRISTINA Brothers Primary Care Unavailable AZUL ., DR CHRISTINA Brothers Consulting Unavailable AZUL ., DR CHRISTINA Brothers Primary Care Unavailable AZUL ., DR CHRISTINA Brothers Attending Unavailable AZUL ., DR CHRISTINA Brothers Admitting Unavailable MOUKARBMYKE, DR MAHARAJ Consulting Unavailable AZUL ., DR CHRISTINA Brothers Primary Care Unavailable MOUKAROSANNE, DR MAHARAJ Attending Unavailable MOUKARBMYKE, DR MAHARAJ Admitting Unavailable CARL, DR BRANDON Negron Consulting Unavailable AZUL ., DR CHRISTINA Brothers Primary Care Unavailable ENGELER, DR JONATHAN Foster Attending Unavailable ENGELER, DR JONATHAN Foster Admitting Unavailable ENGELEMarcella, DR JONATHAN Foster Consulting Unavailable ZAUL ., DR CHRISTINA Brothers Consulting Unavailable AZUL ., DR CHRISTINA Brothers Primary Care Unavailable AZUL ., DR CHRISTINA Brothers Attending Unavailable AZUL ., DR CHRISTINA Brothers Admitting Unavailable ZIEBER, DR TRUDY Naranjo Consulting Unavailable CARL, DR BRANDON Negron Consulting Unavailable AZUL ., DR CHRISTINA Brothers Primary Care Unavailable ENGELEMarcella, DR JONATHAN Foster Attending Unavailable ENGELEMarcella, DR JONATHAN Foster Admitting Unavailable ENGELEMarcella, DR JONATHAN Foster Consulting Unavailable CARL, DR BRANDON Negron Consulting Unavailable AZUL ., DR CHRISTINA Brothers Referring Unavailable AZUL ., DR CHRISTINA Brothers Primary Care Unavailable JAJA, CAMMY Attending Unavailable JAJA, CAMMY Admitting Unavailable JAJA, CAMMY Consulting Unavailable PAUL, DR PATRICIA Ramires Consulting Unavailable WILMA ., DR CHRISTINA Brothers Primary Care Unavailable PAUL, DR PATRICIA Ramires Attending Unavailable PAUL, DR PATRICIA Ramires Admitting Unavailable MOUKARBEL, JONATHAN Referring Unavailable MOUKARBEL, JONATHAN Referring Unavailable MOUKARBEL, JONATHAN Referring Unavailable MOUKARBEL, JONATHAN Attending Unavailable MOUKARBEL, JONATHAN Referring Unavailable MD Christina Azul Primary Care Provider [phone] Kev, OZZIE Guzmán Emergency Provider Rohan ROBLES, Minna Unavailable Unavailable Karla, Dr. Perry Attending Unavailable Unavailable Primary Care Provider Unavailrome Diana MD, Heba Unavailable Fredi RN, Denita Unavailable Claudia PLANOGRAPH OPERATOR.SOLAR PANEL TECHNICIAN, Estella Kinsey Unavailable Willie PAYNE, Julieth Beatty Unavailable Unavail able Cate PLANOGRAPH OPERATOR.SOLAR PANEL TECHNICIAN, Enrique Beatty Primary Care Provider Cate PLANOGRAPH OPERATOR.SOLAR PANEL TECHNICIAN, Enrique Beatty Primary Care Provider NON STAFF Primary Care Provider UnavailMD John Oliveira Emergency Provider Cate PLANOGRAPH OPERATOR.SOLAR PANEL TECHNICIAN, Enrique Ramos Primary Care Provider Cate, Enrique Jaci Attending Unavailable Cate, Enrique L Attending Unavailable [...] Attending Unavailable Cate, Enrique L Attending Unavailable DO Abel De La Cruz Emergency Provider DO Shahbaz Lehman Emergency Provider Jyoti LIMON Attending Unavailable CHRISTINA AZUL Primary Care Unavailable CATE, ENRIQUE RAMOS Primary Care Unavailable CATE, ENRIQUE RAMOS Primary Care Unavailable CATE, ENRIQUE RAMOS Referring Unavailable CATE, ENRIQUE RAMOS Primary Care Unavailable NINA GRIGSBY Attending Unavailable CATE, ENRIQUE RAMOS Primary Care Unavailable CATE, ENRIQUE RITA Primary Care Unavailable DOMINIQUE MURPHY Attending Unavailabl e NINA GRIGSBY Attending Unavailable CATE, ENRIQUE RAMOS Referring Unavailable CATE, ENRIQUE RAMOS Primary Care Unavailable AZULCHRISTINA [place] Primary Care Unavailable AZUL, [facility] Primary Care Unavailable NINA GRIGSBY Referring Unavailable NINA GRIGSBY Attending Unavailable ESTELLA FISH Attending Unavailabl e BUNDESTELLA FERNANDEZ Referring Unavailabl e CATE, ENRIQUE RITA Primary Care Unavailable CATE, ENRIQUE RITA Primary Care Unavailable NINA GRIGSBY Attending Unavailable CATE, ENRIQUE RITA Primary Care Unavailable Jyoti LIMON Attending Unavailable CATE, ENRIQUE RAMOS Primary Care Unavailable CATE, ENRIQUE RAMOS Referring Unavailable CATE, ENRIQUE RITA Primary Care Unavailable CATE, ENRIQUE RITA Primary Care Unavailable CATE, ENRIQUE RAMOS Referring Unavailable CATE, ENRIQUE RAMOS Primary Care Unavailable NINA GRIGSBY Attending Unavailable Jyoti LIMON Referring Unavailable CATE, ENRIQUE RITA Primary Care Unavailable CATE, ENRIQUE RITA Primary Care Unavailable YUSEF PANDYA Attending Unavailable CATE, ENRIQUE RAMOS Referring Unavailable CATE, ENRIQUE RITA Primary Care Unavailable CATE, ENRIQUE RAMOS Primary Care Unavailable ESTELLA FISH Attending Unavailabl e BUNDESTELLA FERNANDEZ Referring Unavailabl e CATE, ENRIQUE RAMOS Primary Care Unavailable NINA GRIGSBY Referring Unavailable CATE, ENRIQUE RAMOS Primary Care Unavailable CATE, ENRIQUE RAMOS Primary Care Unavailable NINA GRIGSBY Referring Unavailable Jyoti LIMON Attending Unavailable CATE, ENRIQUE RAMOS Primary Care Unavailable ESTELLA FISH Attending Unavailabl e BUNDESTELLA FERNANDEZ Referring Unavailabl e CATE, ENRIQUE RAMOS Primary Care Unavailable NINA GRIGSBY Referring Unavailable [place]CHRISTINA [place] Primary Care Unavailable PATRICIA MILLER Attending Unavailable WILMA [facility] Primary Care Unavailable Jyoti LIMON Attending Unavailable CHRISTINA AZUL RADHA Primary Care Unavailable YUSEF PANDYA Referring Unavailable CATE, ENRIQUE RAMOS Primary Care Unavailable MERARY LUCAS Attending Unavailable CATE, ENRIQUE RAMOS Primary Care Unavailable NINA GRIGSBY Referring Unavailable CATE, ENRIQUE RITA Referring Unavailable CATE, ENRIQUE RITA Primary Care Unavailable NINA GRIGSBY Attending Unavailable CATE, ENRIQUE RITA Primary Care Unavailable DOMINIQUE MURPHY Attending Unavailabl e AZUL, CHRISTINA EDWARD Primary Care Unavailable AZUL, CHRISTINA EDWARD Primary Care Unavailable CATE, ENRIQUE RITA Primary Care Unavailable NINA GRIGSBY Referring Unavailable CATE, ENRIQUE RITA Primary Care Unavailable CATE, ENRIQUE RITA Referring Unavailable CATE, ENRIQUE RITA Primary Care Unavailable NINA GRIGSBY Attending Unavailable CATE, ENRIQUE RITA Primary Care Unavailable Jyoti LIMON Attending Unavailable CATE, ENRIQUE RITA Primary Care Unavailable Jyoti LIMON Attending Unavailable PATRICIA MILLER Attending Unavailable AZUL, CHRISTINA EDWARD Primary Care Unavailable NINA GRIGSBY Referring Unavailable Jyoti LIMON Attending Unavailable AZUL, CHRISTINA EDWARD Primary Care Unavailable YUSEF PANDYA Referring Unavailable CATE, ENRIQUE RITA Primary Care Unavailable PATRICIA MILLER Referring Unavailable AZUL, CHRISTINA [place] Primary Care Unavailable AZUL, CHRISTINA EDWARD Primary Care Unavailable NINA GRIGSBY Referring Unavailable CATE, ENRIQUE RITA Primary Care Unavailable Jyoti LIMON Attending Unavailable AZUL, CHRISTINA EDWARD Primary Care Unavailable NYDIA PARKS Attending Unavailable AZUL, CHRISTINA EDWARD Primary Care Unavailable CATE, ENRIQUE RITA Primary Care Unavailable Jyoti LIMON Attending Unavailable Jyoti LIMON Referring Unavailable CATE, ENRIQUE RITA Primary Care Unavailable Jyoti LIMON Attending Unavailable AZUL, CHRISTINA [place] Primary Care Unavailable PATRICIA MILLER Attending Unavailable AZUL, CHRISTINA EDWARD Primary Care Unavailable AZUL, CHRISTINA EDWARD Primary Care Unavailable Jyoti LIMON Attending Unavailable AZUL, CHRISTINA EDWARD Primary Care Unavailable AZUL, CHRISTINA EDWARD Primary Care Unavailable AZLU, CHRISTINA EDWARD Primary Care Unavailable NINA GRIGSBY Attending Unavailable AZUL, CHRISTINA [place] Primary Care Unavailable AZUL, CHRISTINA EDWARD Primary Care Unavailable Jyoti LIMON Attending Unavailable ESTELLA FISH Referring Unavailabl ESTELLA Prince Attending Unavailabl e AZUL, CHRISTINA EDWARD Primary Care Unavailable AZUL, CHRISTINA EDWARD Primary Care Unavailable NYDIA PARKS Attending Unavailable Jyoti LIMON Referring Unavailable CATE, ENRIQUE RITA Primary Care Unavailable SUSANRJyoti Referring Unavailable CATE, ENRIQUE RITA Primary Care Unavailable ENGELER G ERASTO Referring Unavailable CATE, ENRIQUE RAMOS Primary Care Unavailable ENGELERJyoti Attending Unavailable CATE, ENRIQUE RAMOS Primary Care Unavailable ENGELER G ERASTO Referring Unavailable CATE, ENRIQUE RITA Primary Care Unavailable ENGELER, G ERASTO Referring Unavailable CATE, ENRIQUE RITA Primary Care Unavailable ENGELER G ERASTO Referring Unavailable CATE, ENRIQUE RITA Primary Care Unavailable ENGELER, G ERASTO Referring Unavailable CATE, ENRIQUE RITA Primary Care Unavailable CATE, ENRIQUE RITA Primary Care Unavailable CATE, ENRIQUE RITA Referring Unavailable CATE, ENRIQUE RITA Primary Care Unavailable NINA GRIGSBY Attending Unavailable CATE, ENRIQUE RITA Primary Care Unavailable NINA GRIGSBY Referring Unavailable CHRISTINA AZUL [place] Primary Care Unavailable NINA GRIGSBY Referring Unavailable AZUL, [facility] Primary Care Unavailable NINA GRIGSBY Referring Unavailable AZUL [facility] Primary Care Unavailable AZUL [facility] Primary Care Unavailable NINA GRIGSBY Referring Unavailable AZUL [facility] Primary Care Unavailable NINA GRIGSBY Attending Unavailable ESTELLA FISH Attending Unavailabl e AZUL [facility] Primary Care Unavailable AZUL [facility] Primary Care Unavailable NINA GRIGSBY Referring Unavailable WILMA [facility] Primary Care Unavailable DAMON TSE Attending Unavailable MD Deborah Lamar Emergency Provider [phone] MD Jair Nichols Admit Provider MD Jair Nichols Attending Provider DO Davion Allen Other Provider NON STAFF Primary Care Unavailable Shahbaz Lehman Admitting Unavailable Shahbaz Lehman Attending Unavailable NON STAFF Primary Care Unavailable Abel De La Cruz Admitting Unavailable Abel De La Cruz Attending Unavailable Jair Nichols Attending Unavailable Davion Allen Consulting Unavailable NON STAFF Primary Care Unavailable Jair Nichols Admitting Unavailable NON STAFF Primary Care Unavailable John Dominguez Admitting Unavailable John Dominguez Attending Unavailable Medications Current Medications Medication Drug Class(es) Dates Sig (Normalized) Sig (Original) [id number] 200 actuat albuterol 0.09 mg/actuat metered dose inhaler (20 sources) beta2-Adrenergic Agonist Start: 02-22-2024 take 2 puff(s) by mouth every four hours as needed albuterol HFA (PROVENTIL HFA, VENTOLIN HFA) 90 mcg/actuation inhaler Indications: Chronic obstructive pulmonary disease, unspecified COPD type (HCC) , Centrilobular emphysema (HCC) albuterol sulfate HFA 90 mcg/actuation aerosol inhaler: INHALE 2 PUFFS BY MOUTH EVERY 4 HOURS NEEDED for SHORTNESS OF BREATH 1 Each 02/22/2024 Active Start: 06-07-2020 take 1 puff(s) by in halation every four hours Albuterol Sulfate Active 1 [...] tablet (20 sources) Benzodiazepine Start: take 1 mg by mouth three times daily Alprazolam Active 1 MG PO Three times daily March 19, 2024 12:00am Start: 03-17-2023 take 1 tablet by gabe th every eight hours as needed ALPRAZolam (XANAX) 0.25 mg tablet Take 0.25 mg by mouth three times a day as needed. 03/17/2023 Active Start: 01-17-2023 End: 02-01-2023 take [...] daily as needed. Take 1 tablet by gabe th twice daily for 7 days. Take 1 tablet by gabe th three times daily as needed for up to 15 days. Take 0.25 mg by mout h three times a day as needed. aspirin 81 mg delayed release oral tablet (20 sources) Platelet Aggregation Inhibitor, Nonsteroidal Anti-inflammatory Drug Start: 04-12-2021 Aspirin (Felice Low Dose Aspirin) 81 mg Tablet,Delayed Release (Dr/Ec) Active 81 MG PO Daily April 12, 2021 12:00am Start: 03-28-2021 End: 04-12-2021 take 81 mg by mouth once daily Aspirin Discontinued 81 MG PO Daily March 28, 2021 12:00am April 12, 2021 12:27pm take 1 tablet by gabe th once daily aspirin 81 mg chewable tablet Take 81 mg by mouth once daily. Active Comment on above: Take 81 mg by mouth once daily. atorvastatin 40 mg oral tablet (20 sources) HMG-CoA Reductase Inhibitor Start: 06-07-20 take 1 tablet by mouth once daily atorvastatin (LIPITOR) 40 mg tablet Take 40 mg by mouth once daily. 06/07/2020 Active Comment on above: atorvastatin 40 mg t ablet Take 40 mg by mouth once daily. cephalexin 500 mg oral tablet (20 sources) Cephalosporin Antibacterial Start: 12-22-19 End: 03-26-20 take 1 tablet by mouth three times [...] Comment on above: Take 1 tablet by gabe th three times daily. cilostazol 100 mg oral tablet (20 sources) Phosphodiesterase 3 Inhibitor Start: 10-11-19 take 1 tablet by mouth twice daily cilostazol (PLETAL) 100 mg tablet Take 1 tablet by mouth twice daily. 10/10/2021 Active Start: 04-12-2021 End: 10-04-2021 take 100 mg by mouth twice daily Cilostazol Active 100 MG PO Twice daily April 12, 2021 12:00am Start: 06-07-2020 End: 03-28-2021 take 100 mg by mouth once daily Cilostazol Discontinued 100 MG PO Daily June 07, 2020 1:00am March 28, 2021 9:14am Comment on above: Take 1 tablet by gabe th twice daily. Take 100 mg by mouth twice daily. ciprofloxacin 500 mg oral tablet (2 sources) Quinolone Antimicrobial Start: 01-15-20 End: 01-22-20 take 1 tablet by mouth twice daily ciprofloxacin HCl (CIPRO) 500 mg tablet Take 1 tablet by mouth twice daily for 7 days. 14 tablet 0 01/14/2022 01/21/2022 Active Comment on above: Take 1 tablet by gabe th twice daily for 7 days. ciprofloxacin 3 [...] Take 1 tablet by mouth once daily. 10/10/2021 Active Start: 06-07-2020 End: 10-04-2021 take 75 mg by mouth once daily Clopidogrel Active 75 M G PO Daily June 07, 2020 1:00am Comment on above: Take 1 tablet by gabe th once daily. clopidogrel 75 mg ta blet dexamethasone 4 mg oral tablet (20 sources) Corticosteroid Start: 03-19-20 take 4 mg by mouth twice daily Dexamethasone Active 4 MG PO Twice daily March 19, 2024 12:00am Start: 12-02-2023 End: 03-09-2024 take 1 tablet by mouth twice daily at mealtime dexAMETHasone (DECADRON) 4 mg tablet Take 1 tablet by mouth two times a day with meals. 30 tablet 1 12/02/2023 03/09/2024 Discontinued enteric contrast (will be provided with radiology test) (1 source) Start: 08-20-2022 End: 08-21-2022 enteric contrast (will be provided with radiology [...] per enteric contrast guidelines 72 hr fentaNYL 0.1 mg/hr transdermal system (20 sources) Opioid Agonist Start: 03-17-2024 End: 04-16-2024 fentaNYL (DURAGESIC) 100 mcg/hr Indications: Neoplasm related pain Apply 1 Patch as directed every 72 hours for 30 days. Do not cut patch. 10 Patch 03/17/2024 04/16/2024 Active Start: 02-07-2024 Fentanyl Activ e 1 PATCH TOPICAL Every 72 hours February 07, 2024 12:00am Start: 01-09-2024 End: 04-08-2024 fentaNYL (DURAGESIC) 50 mcg/ hr Indications: Neoplasm related pain Apply 1 Patch as directed every 72 hours for 30 days. Do not cut patch. 10 Patch 02/20/2024 03/09/2024 Discontinued (Adjust Sig - Block E-Cancel) ferrous sulfate 325 mg oral tablet (20 [...] on above: Take 1 capsule by mo uth twice daily for 30 days. Take 1 capsule by mo uth three times a day for 3 days, THEN 2 capsules three times a day for 3 days, THEN 3 capsules three times a day for 24 days. Take 1 capsule by mo uth three times a day for 120 days. Take 1 capsule by [facility] three times a day 24 hr isosorbide [...] mouth once daily. Take 1 tablet by [facility] once daily for 7 days. Take 1 tablet by [facility] once daily for 10 days. levothyroxine sodium 0.075 mg oral tablet (20 sources) l-Thyroxine Start: 3 End: take 1 tablet by mouth once daily levothyroxine (SYNTHROID) 75 mcg tablet Take 1 tablet by mouth once daily. 30 tablet 1 12/24/2023 Active Start: 04-23-2023 End: 06-04-2023 take 1 tablet by mouth once daily levothyroxine (SYNTHROID) 50 mcg tablet Take 1 tablet by mouth once daily. 30 tablet 0 05/05/2023 05/19/2023 Discontinued Comment on above: Take 1 tablet by gabe once daily. minocycline 50 mg oral tablet (2 sources) Tetracycline-class Drug Start: 2 End: 2 take 1 tablet by mouth twice daily Minocycline HCl 50 mg tablet Take 50 mg by mouth twice daily. 0 03/13/2022 03/26/2022 Discontinued (Discontinued by another Health Care Provider) Comment on above: Take 50 mg by mouth twice daily. naloxone hydrochloride 40 mg/ml nasal spray (4 sources) Opioid Antagonist Start: 4 naloxone 4 mg/actuation nasal spray [...] available naloxone 4 mg/actuation nasal spray (NARCAN) (20 sources) Start: 4 naloxone 4 mg/actuation nasal spray (NARCAN) Indications: Opioid contract exists Use 1 spray in one nostril as needed for overdose. May repeat every 2 to 3 min in alternating nostrils until medical assistance is available 1 Each 1 01/09/2024 Active OLANZapine 10 mg oral tablet (20 sources) Atypical Antipsychotic Start: 4 End: 4 take 1 tablet by mouth once daily at bedtime OLANZapine (ZYPREXA) 10 mg tablet Take 1 tablet by mouth daily at bedtime. 30 tablet 03/17/2024 04/16/2024 Active Start: 10-20-2023 End: 02-17-2024 take 1 tablet by mouth once daily [...] Comment on above: Take 1 tablet by gabe th daily at bedtime. 10 actuat olodaterol 0.0025 mg/actuat / tiotropium 0.0025 mg/actuat inhalation spray (20 sources) Anticholinergic, beta2-Adrenergic Agonist Start: 03-15-2024 tiotropium-olodaterol (STIOLTO RESPIMAT) 2.5-2.5 mcg/actuation inhaler Inhale 2 Puffs as instructed once daily. 4 g 5 03/15/2024 Active Start: 02-22-2022 End: 10-21-2022 STIOLTO RESPIMAT 2.5-2.5 mcg /actuation INHALE TWO (2) PUFFS BY MOUTH ONCE DAILY 4 g 10 02/22/2022 10/21/2022 Discontinued Start: 07-24-2021 End: 02-22-2022 tiotropium-olodaterol (STIOL TO RESPIMAT) 2.5-2.5 mcg/actuation Inhale 2 Puffs as instructed once daily. 4 g 5 07/24/2021 01/29/2022 Discontinued Comment on above: Inhale 2 Puffs as in structed once daily. INHALE TWO (2) PUFFS BY MOUTH ONCE DAILY ondansetron 8 mg oral tablet (20 sources) Serotonin-3 Receptor Antagonist Start: take 1 tablet by mouth every [...] Comment on above: Take 1 tablet by gabe th every 8 hours as needed for nausea/vomiting. potassium chloride 10 meq extended release oral tablet (20 sources) Start: End: take 1 tablet by mouth once daily potassium chloride (K-TAB) 10 mEq tablet Take 1 tablet by mouth once daily. 30 tablet 3 12/24/2021 03/26/2022 Discontinued (Discontinued by another Health Care Provider) Comment on above: Take 1 tablet by gabe th once daily. pregabalin 75 mg oral capsule (20 sources) Start: End: take 1 capsule by mouth three times daily pregabalin (LYRICA) 100 mg capsule Indications: Neuropathy due to chemotherapeutic drug (HCC) Take 1 capsule by mouth three times a day for 30 days. 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 90 capsule 02/20/2024 03/17/2024 Discontinued Sotorasib (4 sources) Start: 02-07-2024 take 1 tablet by mouth once daily Sotorasib (Lumakras) 320 mg tablet Active 960 MG PO Daily February 07, 2024 12:00am sotorasib (LUMAKRAS) 320 mg tablet (20 sources) Start: 02-04-2024 take 3 tablets by mouth once daily sotorasib (LUMAKRAS) 320 mg tablet Take 3 tablets by mouth once daily. 90 tablet 3 02/04/2024 Active Start: 08-25-2023 End: 02-04-2024 take 3 tablets by mouth once daily sotorasib (LUMAKRAS) 320 mg tablet Take 3 tablets by mouth once daily. 90 tablet 3 08/25/2023 02/04/2024 Discontinued Start: 08-25-2023 take 3 tablets by mo ut once daily sotorasib (LUMAKRAS) 320 mg tablet Take 3 tablets by mouth once daily. 90 tablet 3 08/25/2023 Active Start: 05-13-2023 End: 08-25-2023 take 3 tablets by mouth once daily sotorasib (LUMAKRAS) 320 mg tablet Take 3 tablets by mouth once daily. 90 tablet 3 05/13/2023 08/25/2023 Discontinued Start: 05-13-2023 take 3 tablets by mo ut once daily sotorasib (LUMAKRAS) 320 mg tablet [...] Comment on above: Take 1 tablet by [facility] twice daily. traZODone hydrochloride 50 mg oral tablet (7 sources) Serotonin Reuptake Inhibitor Start: take 50 mg by mouth at bedtime Trazodone Active 50 MG PO Bedtime March 19, 2024 12:00am Start: 01-09-2024 End: 02-08-2024 take 1 tablet by mouth once daily at bedtime traZODone (DESYREL) 50 mg tablet Indications: Insomnia due to medical condition , Anxiety about health Take 1 tablet by mouth daily at bedtime. 30 tablet 1 01/09/2024 02/08/2024 24 hr venlafaxine 37.5 mg extended release oral capsule (3 sources) Serotonin and Norepinephrine Reuptake Inhibitor Start: 03-17-2024 End: 04-16-2024 take 37.5 mg by mouth once daily Venlafaxine Active 37.5 MG PO Daily March 19, 2024 12:00am Completed/Discontinued Medications Medication Drug Class(es) Dates Sig (Normalized) Sig (Original) acetaminophen 500 mg oral tablet (4 sources) Start: 10-02-2021 End: 10-22-2021 take 2 tablets by mouth every six hours acetaminophen (TYLENOL) 500 mg tablet Take 2 tablets by mouth every 6 hours. 0 10/02/2021 10/22/2021 Discontinued Comment on above: Take 2 tablets by mo uth every 6 hours. acetaminophen 325 mg / [...] of breath. amoxicillin 875 mg oral tablet (12 sources) Penicillin-class Antibacterial Start: 10-15-19 take 1 tablet by mouth every twelve hours amoxicillin (AMOXIL) 875 mg tablet Take 1 tablet by mouth every 12 hours. 0 10/15/2023 Active Start: 02-04-2023 End: 03-19-2024 take 500 mg by mouth twice daily Amoxicillin Discontinued 500 MG PO Twice daily 20 February 04, 2023 12:00am March 19, 2024 7:24pm Comment on above: Take 500 mg by mouth twice daily. Take 1 tablet by gabe every 12 hours. amoxicillin 875 mg / clavulanate 125 mg oral tablet (4 sources) Penicillin-class Antibacterial Start: 05-19-20 End: 05-26-20 take 1 tablet by mouth twice daily amoxicillin-clavulan ate potassium (AUGMENTIN) 875-125 mg per tablet Take 1 tablet by mouth two times a day for 7 days. 14 tablet 0 05/19/2023 05/20/2023 Discontinued Comment on above: Take 1 tablet by gabe two times a day for 7 days. azithromycin 250 mg oral tablet (20 sources) Macrolide Antimicrobial Start: 02-07-20 End: 03-19-20 Azithromycin (Zithromax Z-David) 250 mg tablet Discontinued 0 .ROUTE .COMPLEX February 07, 2024 12:00am March 19, 2024 7:25pm take 500 mg today (day 1), then [...] Start: 12-24-2022 take 2 tablets by mo [facility] once daily, then take 1 tablet by [...] for 4 days. TAKE 2 TABLETS by [facility] today, THEN take 1 TABLET once a day FOR the next 4 DAYS. Ciprofloxacin-Dexametha sone (Ciprodex) 0.3-0.1 % drops,suspension (4 sources) Start: 02-05-20 End: 02-07-20 24 Ciprofloxacin-Dexameth asone (Ciprodex) 0.3-0.1 % drops,suspension Discontinued 4 DROPS EAR-RIGHT Twice daily 7.5 7 February 04, 2023 12:00am February 07, 2024 3:49pm cloNIDine hydrochloride 0.1 mg oral tablet (10 sources) Central alpha-2 Adrenergic Agonist End: 12-04-19 22 take 1 tablet by mouth three times daily cloNIDine HCl (CATAPRES) 0.1 mg tablet Take 0.1 mg by mouth three times daily. 0 12/03/2021 Discontinued (Discontinued by Patient) Comment on above: Take 0.1 mg by mouth three times daily. cyclobenzaprine hydrochloride 10 mg oral tablet (6 sources) Muscle Relaxant Start: 06-12-20 End: 03-28-20 21 take 10 mg by mouth three times daily Cyclobenzaprine Discontinued 10 MG PO Three times daily June 12, 2020 1:00am March 28, 2021 9:14am diphenhydrAMINE 12.5 mg/5 mL lidocaine visc 2% MAALOX 200-200-20 mg/5 mL nystatin prednisoLONE 15 mg/5 mL oral liquid 1:1:1:1:1 (CPD) (20 sources) Start: 05-08-20 End: 08-25-19 24 take 5 mL by mouth every six [...] by mouth every 6 hours as needed. DULoxetine 30 mg delayed release oral capsule (20 sources) Serotonin and Norepinephrine Reuptake Inhibitor Start: End: take 1 capsule by mouth once daily DULoxetine (CYMBALTA) 30 mg capsule Indications: Neuropathy due to chemotherapeutic drug (HCC) Take 1 capsule by mouth once daily. 90 capsule 12/26/2023 03/17/2024 Discontinued fluticasone propionate 0.05 mg/actuat metered dose nasal spray (16 sources) Corticosteroid Start: 023 End: 023 take 2 spray(s) nasal route once daily fluticasone (FLONASE) 50 mcg/actuation nasal spray instill 2 (TWO) sprays IN EACH NOSTRIL DAILY 0 03/17/2023 05/20/2023 Discontinued Comment on above: instill 2 (TWO) spra ys IN EACH NOSTRIL DAILY folic acid 1 mg oral tablet (20 sources) Start: End: take 1 tablet by mouth once daily folic acid 1 mg tablet Take 1 tablet by mouth once daily. 90 tablet 1 10/29/2021 03/26/2022 Discontinued (Discontinued by another Health Care Provider) Comment on above: Take 1 tablet by gabe th once daily. 120 actuat formoterol fumarate 0.0048 mg/actuat / glycopyrrolate 0.009 mg/actuat metered dose inhaler (6 sources) beta2-Adrenergic Agonist Start: End: Glycopyrrolate-Formote rol (Bevespi Aerosphere) 9-4.8 mcg HFA aerosol inhaler Discontinued 2 PUFF INHALATION Q12H June 07, 2020 1:00am February 07, 2024 3:49pm isosorbide dinitrate 10 mg oral tablet (20 sources) Nitrate Vasodilator Start: End: take 1 tablet by mouth [...] Comment on above: TAKE 1 TABLET BY GABE TH EVERY MORNING and TAKE 1 TABLET [...] mg/ml topical cream (20 sources) Azole Antifungal Star t: 10-0 04-09 End: 0 12-07 24 ketoconazole (NIZORAL) 2 % cream mix with mometasone and APPLY TO THE AFFECTED AREA(S) TWICE DAILY for 30 days 0 04/28/2023 08/25/2023 Discontinued Comment on above: mix with mometasone and APPLY TO THE AFFECTED AREA(S) TWICE DAILY for 30 days lidocaine 0.04 mg/mg medicated patch (4 sources) Antiarrhythmic, Amide Local Anesthetic Star t: 03-01-07 End: 0 11-07 apply 1 dose transdermal route once daily lidocaine (SALONPAS) 4 % patch Apply 1 Patch as directed once daily. 0 10/03/2021 10/22/2021 Discontinued (Discontinued by another Health Care Provider) Comment on above: Apply 1 Patch as dir ected once daily. methylPREDNISolone 4 mg oral tablet (20 sources) Corticosteroid Star t: 2 0 End: 02-20 Methylprednisolone Discontinued 4 MG PO As Directed February 07, 2024 12:00am March 19, 2024 7:27pm Start: 07-23-2023 End: 08-25-2023 methylPREDNISolone (MEDROL D [...] instructions Take by mouth as dir ected. metoprolol tartrate 25 mg oral tablet (20 sources) beta-Adrenergic Melissa Start: 0 End: take 1 tablet by mouth once [...] Take 50 mg by mouth twice daily. Active End: 12-03-2021 take 1 tablet by [...] by mouth every 2 hours as needed. oxyCODONE hydrochloride 10 mg oral tablet (20 sources) Opioid Agonist Start: 4 End: 4 take 1 tablet by mouth every four hours as needed oxyCODONE IR (ROXICODONE) 10 mg tab Indications: Neoplasm related pain Take 1-2 tablets by mouth every 4 hours as needed for pain for up to 7 days. 84 tablet 03/01/2024 03/17/2024 Discontinued Start: 11-21-2023 End: 12-21-2023 take 1 tablet [...] needed for pain Take 1 tablet by gabe th every 6 hours as needed for pain for up to 15 days. polyethylene glycol 3350 [id number] mg powder for oral solution (4 sources) Osmotic Laxative Start: 2 End: 2 polyethylene glycol 3350 (MIRALAX, GLYCOLAX) 17 gram packet Take 1 Packet by mouth once daily. Dissolve dose in 4 - 8 ounces of liquid and take as directed. 0 10/03/2021 10/22/2021 Discontinued (Discontinued by another Health Care Provider) Comment on above: Take 1 Packet by gabe once daily. Dissolve dose in 4 - 8 ounces of liquid and take as directed. potassium bicarbonate 25 meq effervescent oral tablet (20 sources) Start: 3 End: 4 take 1 tablet by mouth once daily Potassium Bicarb-Citric Acid (K-LYTE) 25 mEq disintegrating tablet Take 1 tablet by mouth once daily. 30 tablet 1 04/08/2023 09/22/2023 Discontinued Comment on above: Take 1 tablet by gabe th once daily. predniSONE 10 mg oral tablet (20 sources) Start: 3 End: 3 take 1 tablet by mouth once daily, [...] TAKE 1 TABLET Take 1 tablet by agbe th once daily. Take 2 daily x 1 week, then 1 daily x 1 week prochlorperazine 10 mg oral tablet (20 sources) Phenothiazine Start: 022 End: take 1 tablet by mouth every six hours as needed prochlorperazine (COMPAZINE) 10 mg tablet Take 1 tablet by mouth every 6 hours as needed. 100 tablet 1 10/25/2021 03/26/2022 Discontinued (Discontinued by Patient) Comment on above: Take 1 tablet by gabe th every 6 hours as needed. sertraline 25 mg oral tablet (20 sources) Serotonin Reuptake Inhibitor Start: 023 End: 023 take 1 tablet by mouth once daily sertraline (ZOLOFT) 25 mg tablet Take 1 tablet by mouth once daily. 30 tablet 3 01/17/2023 05/20/2023 Discontinued Comment on above: Take 1 tablet by gabe th once daily. 1000 ml sodium chloride 9 mg/ml injection (5 sources) Start: 024 End: 1,000 mL/hr (rounded to 999 mL/hr), INTRAVENOUS, Administer over 1 Hours, ONCE, 1 dose, On Fri03/09/24 at 1230 Start: 12-02-2023 End: 12-02-2023 NaCl 0.9% 1,000 mL iv bolus Start: [...] Comment on above: Take 1 tablet by gabe th every 4 hours as needed for pain. Problems Active Problems Problem Classification Problem Date Documented Date Episodic/Chronic Acute and chronic tonsillitis (10 sources) Mass of palatine tonsil; Translations: [Other chronic diseases of tonsils and adenoids] Onset: 3 05-27-2023 Chronic Anxiety disorders (10 sources) Generalized anxiety disorder; Translations: [Anxiety] Onset: 2 02-19-2023 Chronic Cancer of bronchus; lung (20 sources) Malignant neoplasm of upper lobe of left lung; Translations: [Malignant neoplasm of upper lobe, left bronchus or lung] Onset: 2 Chronic Cancer of bronchus; lung (7 sources) History of malignant neoplasm of thoracic cavity structure; Translations: [Personal history of other malignant neoplasm of bronchus and lung] Onset: 4 01-03-2023 Episodic Cancer of head and neck [...] Coronary atherosclerosis; Translations: [Atherosclerotic heart disease of [place] coronary artery without angina pectoris] Onset: 2 10-04-2021 Chronic Coronary atherosclerosis and other heart disease (1 source) Presence of aortocoronary bypass graft; Translations: [PRESENCE AORTOCORONARY BYPASS GRAFT] Onset: 3 Episodic Disorders of lipid metabolism (1 source) Pure hypercholesterolemia, unspecified; Translations: [PURE HYPERCHOLESTEROLEMIA UNSPEC] Onset: 3 Chronic E Codes: Adverse effects of medical drugs (2 sources) Adverse effect of antineoplastic and immunosuppressive drugs, initial encounter; 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)] Onset: 3 Episodic Essential hypertension (20 sources) Essential hypertension; Translations: [Essential (primary) hypertension] Onset: 2 10-04-2021 Chronic Headache; including migraine (4 sources) Headache; including migraine; Translations: [HEADACHE UNSPECIFIED] Onset: 2 Hypertension with complications and secondary hypertension (1 source) Hypertensive urgency; Translations: [HYPERTENSIVE URGENCY] Onset: 2 Chronic Malaise and fatigue (11 sources) Malaise and fatigue; Translations: [Other malaise] Onset: 4 Episodic Miscellaneous mental health disorders (1 source) Anxiety about body function or health; Translations: [Other symptoms and signs involving emotional state] 01-09-2024 Episodic Nausea and vomiting (5 sources) Nausea; Translations: [Nausea] Onset: 4 05-16-2023 Episodic Nutritional deficiencies (20 sources) Deficiency [...] malignant neoplasm] Episodic Other aftercare (1 source) 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; Translations: [[facility] CURRENT USE OF ASPIRIN] Onset: 3 Episodic Other aftercare (1 source) snf (current) use of antithrombotics/antiplate lets; Translations: [[facility] ANTITHROMBOT/ANTIPLATLETS ] Onset: 3 Episodic Other aftercare (1 source) Other [facility] (current) drug therapy; Translations: [OTH SEATING CAPTAIN CURRENT DRUG THERAPY] Onset: 3 Episodic Other aftercare (3 sources) Under care of palliative care physician; Translations: [Encounter for palliative care] 05-16-2023 Episodic Other aftercare (2 sources) Drug therapy finding; Translations: [snf (current) use of opiate analgesic] 06-13-2023 Episodic Other aftercare (2 sources) Patient encounter status; Translations: [Encounter for palliative care] 11-21-2023 Episodic Other aftercare (1 source) Encounter for palliative care; Translations: [Encounter for palliative care] Onset: 4 Episodic Other connective tissue disease (2 sources) Swelling of upper limb; Translations: [Other specified soft tissue disorders] 02-03-2024 Episodic Other connective tissue disease (1 source) Swelling of left upper limb; Translations: [Other specified soft tissue disorders] 02-04-2024 Episodic Other ear and sense organ disorders (4 sources) Otitis externa; Translations: [Unspecified otitis externa, unspecified ear] 02-12-2023 Chronic Other lower respiratory disease (2 sources) Nodule of lung; Translations: [Solitary pulmonary nodule] Episodic Other lower respiratory disease (6 sources) Lung mass; Translations: [Other nonspecific abnormal finding of lung field] 04-13-2021 Episodic Other lower respiratory disease (2 sources) Multiple nodules of lung; Translations: [Other nonspecific abnormal finding of lung field] Episodic Other lower respiratory disease (5 sources) Hemoptysis; Translations: [Hemoptysis] 01-03-2023 Episodic Other lower respiratory disease (1 source) Dyspnea; Translations: [Shortness of breath] 02-10-2024 Episodic Other lower respiratory disease (1 source) Peripheral cyanosis; Translations: [Cyanosis] 02-04-2024 Episodic Other lower respiratory disease (1 source) Dyspnea on exertion; Translations: [Other forms of dyspnea] 03-15-2024 Episodic Other lower respiratory disease (2 sources) Other nonspecific abnormal finding of lung field; Translations: [Swelling, mass, or lump in chest] Onset: 4 03-20-2024 Episodic Other nervous system disorders (20 sources) Pain due to neoplastic disease; Translations: [Neoplasm related pain (acute) (chronic)] Chronic Other nervous system disorders (6 sources) Neuropathy; Translations: [Drug-induced polyneuropathy] 05-16-2023 Chronic Other nervous system disorders (1 source) Drug-induced polyneuropathy; 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)] Onset: 4 Chronic Other nervous system disorders (2 sources) Neoplasm related pain (acute) (chronic); Translations: [Neoplasm related pain] Onset: 4 Chronic Other nervous system disorders (1 source) Other chronic pain; Translations: [Chronic left shoulder pain] Onset: 4 Chronic Other nervous system disorders (3 sources) Abnormal gait; Translations: [Unsteadiness on feet] 03-19-2024 Episodic Other nervous system disorders (2 sources) Unsteadiness on feet; Translations: [Abnormality of gait] Onset: 4 03-20-2024 Episodic Other non-traumatic joint disorders (6 sources) Pain in left shoulder; Translations: [Pain in joint, shoulder region] Onset: 3 Episodic Other non-traumatic joint disorders (3 sources) Chronic pain of left upper limb; Translations: [Pain in left shoulder] 11-21-2023 Episodic Other nutritional; endocrine; and metabolic disorders (3 sources) Loss of appetite; Translations: [Anorexia] 05-16-2023 Episodic Other nutritional; endocrine; and metabolic disorders (1 source) Abnormal weight loss; Translations: [Abnormal weight loss] 11-04-2023 Episodic Other nutritional; endocrine; and metabolic disorders (2 sources) Unintentional weight loss; Translations: [Abnormal weight loss] 11-21-2023 Episodic Other nutritional; endocrine; and metabolic disorders (2 sources) Abnormal weight loss; Translations: [Weight loss, unintentional] Onset: 4 Episodic Other screening for suspected conditions (not mental disorders or infectious disease) (2 sources) CT of chest abnormal; Translations: [Abnormal findings on diagnostic imaging of other specified body structures] Chronic Other skin disorders (4 sources) Eruption; Translations: [Rash and other nonspecific skin eruption] Episodic Other upper respiratory infections (2 sources) Sore throat symptom; Translations: [Acute pharyngitis, unspecified] Onset: 4 02-24-2024 Episodic Otitis media and related conditions (4 sources) Otitis media; Translations: [Otitis media, unspecified, unspecified [...] [ACQUIRED ABSENCE OF LUNG] Onset: 3 Episodic Residual codes; unclassified (1 source) Altered mental status; Translations: [Altered mental status, unspecified] 03-18-2024 Episodic Residual codes; unclassified (2 sources) Forgetful; Translations: [Other general symptoms and signs] 03-19-2024 Episodic Residual codes; unclassified (2 sources) Other general symptoms and signs; Translations: [Other general symptoms] Onset: 4 03-20-2024 Episodic Screening and history of mental health [...] uncomplicated] Onset: 2 10-03-2021 Chronic Thyroid disorders (12 sources) Hypothyroidism caused by drug; Translations: [Hypothyroidism due to medicaments and other exogenous substances] Onset: 4 06-02-2023 Chronic Unclassified (1 source) CONTACT W/AND (SUSP) EXPOS COVID-19; Translations: [CONTACT W/AND (SUSP) EXPOS COVID-19] Onset: 2 Unclassified (1 source) Lung Cancer Onset: 3 Unclassified (1 source) Cough, unspecified; Translations: [Cough, unspecified] Onset: 4 Past or Other Problems Problem Classification Problem Date Documented Date Episodic/Chronic Acute and unspecified renal failure (13 sources) Acute injury of kidney; Translations: [Acute kidney failure, unspecified] Onset: 11-21-2021 Episodic Administrative/social admission (20 sources) Discharge status; Translations: [Encounter for administrative examinations, unspecified] Onset: 09-27-2021 10-04-2021 Episodic Cardiac dysrhythmias (4 sources) Tachycardia, unspecified; Translations: [TACHYCARDIA UNSPECIFIED] Onset: 12-07-2021 Episodic Deficiency and other anemia (1 source) Anemia, unspecified; Translations: [ANEMIA UNSPECIFIED] Onset: 02-12-2022 Episodic Other circulatory disease (1 source) Hypotension, [...] IN RIGHT HIP] Onset: 05-01-2022 Episodic Other screening for suspected conditions (not [...] Name Value Interpretation Reference Range Facil ity Alanine aminotransferase [En zymatic activity/volume] in Serum or PlasmaOrdered By: Jair Nichols on 03-20-2024 ALT [Catalytic activity/Vol] 9 U/L Normal 7-52 [facility] Comment on above: Performed By: #### C BC, CMP, MG ####[place] [id number] [address] Albumin [Mass/volume] in Ser um or Plasma by Bromocresol green (BCG) dye binding methoOrdered By: Jair Nichols on 03-20-2024 Albumin BCG dye [Mass/Vol] 3.3 g/dL Low 3.5-5.7 [facility] Alkaline phosphatase [Enzyma tic activity/volume] in Serum or PlasmaOrdered By: Jair Nichols on 03-20-2024 ALP [Catalytic activity/Vol] 46 U/L Normal 34-104 [facility] Comment on above: Performed By: #### C BC, CMP, MG ####[address] Aspartate aminotransferase [ Enzymatic activity/volume] in Serum or PlasmaOrdered By: Jair Nichols on 03-20-2024 AST [Catalytic activity/Vol] 11 U/L Low 13-39 [facility] Comment on above: Performed By: #### C BC, CMP, MG ####[address] Automated basophil %Ordered By: Jair Nichols on 03-20-2024 Basophils/100 WBC (Bld) 0.2 % Normal . [facility] Comment on above: Performed By: #### C BC, CMP, MG ####[place] [id number] Automated basophil countOrde red By: Jair Nichols on 03-20-2024 Basophils (Bld) [#/Vol] 0.0 10*3/uL Normal 0.0-0.2 [facility] Comment on above: Result Comment: PERF ORMED BY: [facility] [address] [place] [address] PATHOLOGIST ALMOND PASTE MOLDER LAEX CROWLEY M.D. Performed By: #### C BC, CMP, MG ####[address] Automated blood monocyte cou ntOrdered By: Jair Magdalena on 03-20-2024 Monocytes (Bld) [#/Vol] 0.5 10*3/uL Normal 0.0-0.8 [facility] Comment on above: Performed By: #### C BC, CMP, MG ####[address] Automated eosinophil %Ordere d By: Jair Magdalena on 03-20-2024 Eosinophils/100 WBC (Bld) 0.2 % Normal . [facility] Comment on above: Performed By: #### C BC, CMP, MG ####[address] Automated eosinophil countOr dered By: Jair Magdalena on 03-20-2024 Eosinophils (Bld) [#/Vol] 0.0 10*3/uL Normal 0.0-0.45 [facility] Comment on above: Performed By: #### C BC, CMP, MG ####[address] Automated monocyte %Ordered By: Jair Magdalena on 03-20-2024 Monocytes/100 WBC (Bld) 8.7 % Normal . [facility] Comment on above: Performed By: #### C BC, CMP, MG ####[address] Automated neutrophil %Ordere d By: Jair Magdalena on 03-20-2024 Neutrophils/100 WBC (Bld) 82.3 % Normal . [facility] Comment on above: Performed By: #### C BC, CMP, MG ####[address] Bilirubin.total [Mass/volume ] in Serum or PlasmaOrdered By: Jair Magdalena on 03-20-2024 Bilirubin [Mass/Vol] 0.6 mg/dL Normal 0.3-1.0 [facility] Comment on above: Performed By: #### C BC, CMP, MG ####[address] Calcium [Mass/volume] in Ser um or PlasmaOrdered By: Jair Magdalena on 03-20-2024 Calcium [Mass/Vol] 8.8 mg/dL Normal 8.6-10.3 [facility] Comment on above: Performed By: #### C BC, CMP, MG ####[address] Carbon dioxide, total [Moles /volume] in Serum or PlasmaOrdered By: Jairprudence Nichols on 03-20-2024 CO2 [Moles/Vol] 25.0 mmol/L Normal 21.0-31.0 [facility] Comment on above: Performed By: #### C BC, CMP, MG ####[address] Chloride [Moles/volume] in S juanpablo or PlasmaOrdered By: Jair Magdalena on 03-20-2024 Chloride [Moles/Vol] 110 mmol/L High 98-107 [facility] Comment on above: Performed By: #### C BC, CMP, MG ####[place] [id number] [facility] Complete Blood Count Auto Di ffon 03-20-2024 Mean Corpuscular HGB Conc 32.8 g/dL Normal 32.5-35.6 [facility] Comment on above: Performed By: #### C BC, CMP, MG ####[place] [id number] [facility] NRBC% 0.0 /100{WBC} Normal 0-0.5 [facility] Comment on above: Performed By: #### C BC, CMP, MG ####[place] [id number] [place] [id number] [facility] Comprehensive Metabolic Pane tim 03-20-2024 Albumin [Mass/Vol] 3.3 g/dL Low 3.5-5.7 [facility] Comment on above: Performed By: #### C BC, CMP, MG ####[address] Creatinine Clr Calc Pharmacy 58.50 Normal [facility] Comment on above: Performed By: #### C BC, CMP, MG ####[address] GFR/1.73 sq M.predicted MDRD (S/P/Bld) [Vol rate/Area] mL/min/{1.73_m2} Normal [facility] Comment on above: Performed By: #### C BC, CMP, MG ####[address] Creatinine [Mass/volume] in Serum or PlasmaOrdered By: Jair Nichols on 03-20-2024 Creatinine [Mass/Vol] 0.87 mg/dL Normal 0.70-1.30 [facility] Comment on above: Performed By: #### C BC, CMP, MG ####[address] Erythrocyte distribution wid th [Ratio] by Automated countOrdered By: Jair Nichols on 03-20-2024 Erythrocyte distribution width (RBC) [Ratio] 13.8 % Normal 12.0-14.8 [facility] Comment on above: Performed By: #### C BC, CMP, MG ####[address] Erythrocytes [#/volume] in B lood by Automated countOrdered By: Jair Nichols on 03-20-2024 RBC (Bld) [#/Vol] 3.54 10*6/uL Low 3.90-5.60 [facility] Comment on above: Performed By: #### C BC, CMP, MG ####[place] [id number] [place] [id number] [facility] Glucose [Mass/volume] in Ser um or PlasmaOrdered By: Jair Nichols on 03-20-2024 Glucose [Mass/Vol] 101 mg/dL High 70-100 [facility] Comment on above: ADA recommended refe rence rangeRandom Glucose Reference Range is dependent on time and content of last meal. Glucose of more than 200 mg/dL in a nonstressed, ambulatory subject supports the diagnosis of Diabetes Mellitus. Result Comment: [place] om Glucose Reference Range is dependent on time and content of last meal. Glucose of more than 200 mg/dL in a nonstressed, ambulatory subject supports the diagnosis of Diabetes Mellitus. ADA recommended reference range Performed By: #### C TEGAN BELCHER, MG ####[place] [id number] [place] [id number] [facility] Hematocrit [Volume Fraction] of Blood by Automated countOrdered By: Jair Nichols on 03-20-2024 Hematocrit (Bld) [Volume fraction] 33.2 % Low 38.8-50.0 [facility] Comment on above: Performed By: #### Kyara BELCHER CMP, MG ####[place] [id number] [facility] Hemoglobin [Mass/volume] in BloodOrdered By: Jair Nichols on 03-20-2024 Hemoglobin (Bld) [Mass/Vol] 10.9 g/dL Low 13.0-17.0 [facility] Comment on above: Performed By: #### Kyara BELCHER CMP, MG ####[place] [id number] [facility] Leukocytes [#/volume] correc nani for nucleated erythrocytes in Blood by Automated counOrdered By: Jair Nichols on 03-20-2024 WBC corrected for nucl RBC Auto (Bld) [#/Vol] 5.8 10*3/uL 4.1-10.5 [facility] Leukocytes [#/volume] in Blo od by Automated countOrdered By: Jair Nichols on 03-20-2024 WBC (Bld) [#/Vol] 5.8 10*3/uL Normal 4.1-10.5 [facility] Comment on above: Performed By: #### C BC, CMP, MG ####[place] [id number] Lymphocytes [#/volume] in Bl ood by Automated countOrdered By: Jair Nichols on 03-20-2024 Lymphocytes (Bld) [#/Vol] 0.5 10*3/uL Low 1.00-4.8 [facility] Comment on above: Performed By: #### C BC, CMP, MG ####[address] Lymphocytes/100 leukocytes i n Blood by Automated countOrdered By: Jair Nichols on 03-20-2024 Lymphocytes/100 WBC (Bld) 8.6 % Normal . [facility] Comment on above: Performed By: #### C BC, CMP, MG ####[address] MCH [Entitic mass] by Automa nani countOrdered By: Jair Nichols on 03-20-2024 MCH (RBC) [Entitic mass] 30.7 pg Normal 27.5-35.2 [facility] Comment on above: Performed By: #### C BC, CMP, MG ####[address] MCHC Auto (RBC) [Mass/Vol]Or dered By: Jair Nichols on 03-20-2024 MCHC (RBC) [Mass/Vol] 32.8 g/dL 32.5-35.6 [facility] MCV [Entitic volume] by Auto mated countOrdered By: Jair Nichols on 03-20-2024 MCV (RBC) [Entitic vol] 93.6 fL Normal 83.5-101 [facility] Comment on above: Performed By: #### C BC, CMP, MG ####[address] Magnesium [Mass/volume] in S juanpablo or PlasmaOrdered By: Jair Nichols on 03-20-2024 Magnesium [Mass/Vol] 1.8 mg/dL Low 1.9-2.7 [facility] Comment on above: Result Comment: PERF ORMED BY: [facility] [address] [place] [address] PATHOLOGIST ALMOND PASTE MOLDER ALEX CROWLEY M.D. Performed By: #### C BC, CMP, MG ####[place] [address] [address] Neutrophils [#/volume] in Bl ood by Automated countOrdered By: Jair Nichols on 03-20-2024 Neutrophils (Bld) [#/Vol] 4.8 10*3/uL Normal 1.8-7.7 [facility] Comment on above: Performed By: #### C BC, CMP, MG ####[place] [address] [address] No Panel InformationOrdered By: Jair Nichols on 03-20-2024 Estimated GFR (CKD-EPI) > 60.0 mL/Min [facility] Creatinine Clearance (Chem 58.50 [facility] Nucleated erythrocytes [Pres ence] in Blood by Automated countOrdered By: Jair Nichols on 03-20-2024 Nucleated RBC Auto Ql (Bld) 0.0 /100{WBC} 0-0.5 [facility] Platelet mean volume [Entiti c volume] in Blood by Automated countOrdered By: Jair Nichols on 03-20-2024 Platelet mean volume (Bld) [Entitic vol] 9.5 fL Normal 6.6-10.1 [facility] Comment on above: Performed By: #### C BC, CMP, MG ####[place] [address] [address] Platelets [#/volume] in Bloo d by Automated countOrdered By: Jair Nichols on 03-20-2024 Platelets (Bld) [#/Vol] 236 10*3/uL Normal 150-450 [facility] Comment on above: Performed By: #### C BC, CMP, MG ####[address] Potassium [Moles/volume] in Serum or PlasmaOrdered By: Jair Magdalena on 03-20-2024 Potassium [Moles/Vol] 4.1 mmol/L Normal 3.5-5.1 [facility] Comment on above: Performed By: #### C BC, CMP, MG ####[address] Protein [Mass/volume] in Ser um or PlasmaOrdered By: Jair Magdalena on 03-20-2024 Protein [Mass/Vol] 6.3 g/dL Low 6.4-8.9 [facility] Comment on above: Performed By: #### C BC, CMP, MG ####[address] Serum globulin measurement b y calculation (mass/volume)Ordered By: Jair Magdalena on Globulin (S) [Mass/Vol] 3.0 g/dL Normal [facility] Comment on above: Performed By: #### C BC, CMP, MG ####[address] Serum or plasma albumin/glob ulin mass ratioOrdered By: Jair Magdalena on 03-20-2024 Albumin/Globulin [Mass ratio] 1.1 {ratio} [facility] Comment on above: Performed By: #### C BC, CMP, MG ####[address] Serum or plasma anion gap de terminationOrdered By: Jair Magdalena on 03-20-2024 Anion gap [Moles/Vol] 9.1 mmol/L Normal 6.0-15.0 [facility] Comment on above: Performed By: #### C BC, CMP, MG ####[address] Sodium [Moles/volume] in Ser um or PlasmaOrdered By: Jair Magdalena on 03-20-2024 Sodium [Moles/Vol] 140 mmol/L Normal 136-145 [facility] Comment on above: Performed By: #### C BC, CMP, MG ####[facility] Urea nitrogen [Mass/volume] in Serum or PlasmaOrdered By: Jair Nichols on 03-20-2024 Urea nitrogen [Mass/Vol] 20 mg/dL Normal 02-11 [facility] Comment on above: Performed By: #### C BC, CMP, MG ####[facility] [place] [id number] [facility] Activated partial thrombopla stin time (aPTT) in platelet poor plasma by coagulation aOrdered By: Shahbaz Lehman on 03-19-2024 aPTT Coag (PPP) [Time] 29.4 s 25.1-36.5 [facility] Comment on above: A hematocrit value g reater than 55% may lead to inaccurate results in coagulation testing. Patients having hematocrit values >55% require a special collection tube for coagulation studies. Please contact the laboratory at [phone] for redraw instructions. Alanine aminotransferase [En zymatic activity/volume] in Serum or PlasmaOrdered By: Shahbaz Lehman on 03-19-2024 ALT [Catalytic activity/Vol] 12 U/L Normal 7-52 [facility] Comment on above: Performed By: #### P T, PTT, CMP, MG, TSH3, CBC, HS TROP #### [facility] [address] [place] [id number] [place] Albumin [Mass/volume] in Ser um or Plasma by Bromocresol green (BCG) dye binding methoOrdered By: Shahbaz Lehman on 03-19-2024 Albumin BCG dye [Mass/Vol] 3.7 g/dL 3.5-5.7 [facility] Alkaline phosphatase [Enzyma tic activity/volume] in Serum or PlasmaOrdered By: Shahbaz Lehman on 03-19-2024 ALP [Catalytic activity/Vol] 47 U/L Normal 34-104 [facility] Comment on above: Performed By: #### P T, PTT, CMP, MG, TSH3, CBC, HS TROP #### [address] Aspartate aminotransferase [ Enzymatic activity/volume] in Serum or PlasmaOrdered By: Shahbaz Lehman on 03-19-2024 AST [Catalytic activity/Vol] 16 U/L Normal 13-39 [facility] Comment on above: Performed By: #### P T, PTT, CMP, MG, TSH3, CBC, HS TROP #### [address] Automated basophil %Ordered By: Shahbaz Lehman on 03-19-2024 Basophils/100 WBC (Bld) 0.5 % Normal . [facility] Comment on above: Performed By: #### P T, PTT, CMP, MG, TSH3, CBC, HS TROP #### [address] Automated basophil countOrde red By: Shahbaz Lehman on 03-19-2024 Basophils (Bld) [#/Vol] 0.0 10*3/uL Normal 0.0-0.2 [facility] Comment on above: Result Comment: PERF ORMED BY: [place] [address] PATHOLOGIST ALMOND PASTE MOLDER ALEX CROWLEY M.D. Performed By: #### P T, PTT, CMP, MG, TSH3, CBC, HS TROP #### [address] Automated blood monocyte cou ntOrdered By: Shahbaz Lehman on 03-19-2024 Monocytes (Bld) [#/Vol] 0.6 10*3/uL Normal 0.0-0.8 [facility] Comment on above: Performed By: #### P T, PTT, CMP, MG, TSH3, CBC, HS TROP #### [address] Automated eosinophil %Ordere d By: Shahbaz Lehman on 03-19-2024 Eosinophils/100 WBC (Bld) 1.2 % Normal . [facility] Comment on above: Performed By: #### P T, PTT, CMP, MG, TSH3, CBC, HS TROP #### [facility] [address] Automated eosinophil countOr dered By: Shahbaz Lehman on 03-19-2024 Eosinophils (Bld) [#/Vol] 0.1 10*3/uL Normal 0.0-0.45 [facility] Comment on above: Performed By: #### P T, PTT, CMP, MG, TSH3, CBC, HS TROP #### [facility] [address] Automated monocyte %Ordered By: Shahbaz Lehman on 03-19-2024 Monocytes/100 WBC (Bld) 8.4 % Normal . [facility] Comment on above: Performed By: #### P T, PTT, CMP, MG, TSH3, CBC, HS TROP #### [address] Automated neutrophil %Ordere d By: Shahbaz Lehman on 03-19-2024 Neutrophils/100 WBC (Bld) 79.6 % Normal . [facility] Comment on above: Performed By: #### P T, PTT, CMP, MG, TSH3, CBC, HS TROP #### [address] Bilirubin Test strip Ql (U)O rdered By: Shahbaz Lehman on 03-19-2024 Bilirubin Ql (U) Negative Negative [facility] Bilirubin.total [Mass/volume ] in Serum or PlasmaOrdered By: Shahbaz Lehman on 03-19-2024 Bilirubin [Mass/Vol] 0.4 mg/dL Normal 0.3-1.0 [facility] Comment on above: Performed By: #### P T, PTT, CMP, MG, TSH3, CBC, HS TROP #### [address] head/brain wo [place] 03-19 CT head/brain [place] [facility] [place] [address] CT Scan Report Signed Patient: Cristal Gu MR#: [id number] : 1955 Acct:[id number] Age/Sex: 69 / M ADM Date: 03/19/24 Loc: ER Room: Type: [facility] ER Attending Dr: Copies to: Shahbaz Lehman DO Ordering Provider: Shahbaz Lehman DO Date of Service: 03/19/24 CT/CT head/brain wo con: weakness CT BRAIN WITHOUT CONTRAST: CLINICAL HISTORY: Dizziness, off balance. COMPARISON: None TECHNIQUE: Contiguous axial unenhanced images were obtained through the brain. This CT exam was performed using one or more following dose reduction techniques: Automated exposure control, adjustment of the mA and/or kV according to patient size, or use of iterative reconstruction technique. FINDINGS: There is no evidence of midline shift, intra or extra-axial fluid collection, hemorrhage or CT evidence of stroke. Cortical atrophy with chronic microvascular ischemic changes. Posterior fossa appears unremarkable. Visualized intraorbital contents demonstrate no acute findings. Visualized paranasal sinuses are clear. The surrounding soft tissues are normal. CT/CT head/brain wo con IMPRESSION: NO ACUTE INTRACRANIAL ABNORMALITY. If intracranial metastases is of clinical concern, brain MRI with and without IV contrast is recommended. Impression dictated by: Star Mark Jr., D.OJudi03/19/2024 11:52 AM Dictation Location: [place] [address] Transcribed By: [facility] 03/19/24 1152 Dictated By: Star Mark Jr, DO 03/19/24 1149 Signed By: 03/19/24 1152 Normal [facility] Calcium [Mass/volume] in Ser um or PlasmaOrdered By: Shahbaz Lehman on 03-19-2024 Calcium [Mass/Vol] 8.9 mg/dL Normal 8.6-10.3 [facility] Comment on above: Performed By: #### P T, PTT, CMP, MG, TSH3, CBC, HS TROP #### [facility] [address] [place] [address] Capillary blood glucose jerson urement by glucometer (mass/volume)Ordered By: Shahbaz Lehman on 03-19-2024 Glucose [Mass/Vol] 85 mg/dL Normal [facility] Comment on above: Random Glucose Refer ence Range is dependent on time and content of last meal. Glucose of more than 200 mg/dL in a nonstressed, ambulatory subject supports the diagnosis of Diabetes Mellitus. Result Comment: [facility] Glucose Reference Range is dependent on time and content of last meal. Glucose of more than 200 mg/dL in a nonstressed, ambulatory subject supports the diagnosis of Diabetes Mellitus. PERFORMED BY: [place] [address] PATHOLOGIST ALMOND PASTE MOLDER ALEX CROWLEY M.D. Performed By: #### G LUKEITH ####Point of Care testing, Carbon dioxide, total [Moles /volume] in Serum or PlasmaOrdered By: Shahbaz Lehman on 03-19-2024 CO2 [Moles/Vol] 28.6 mmol/L Normal 21.0-31.0 [facility] Comment on above: Performed By: #### P T, PTT, CMP, MG, TSH3, CBC, HS TROP #### [address] Chloride [Moles/volume] in S juanpablo or PlasmaOrdered By: Shahbaz Lehman on 03-19-2024 Chloride [Moles/Vol] 102 mmol/L Normal 98-107 [facility] Comment on above: Performed By: #### P T, PTT, CMP, MG, TSH3, CBC, HS TROP #### [address] Color of Urine by AutoOrdere d By: Shahbaz Lehman on 03-19-2024 Color (U) Light-yellow Normal Yellow [facility] Comment on above: Order Comment: Name Collection Type:: Clean-Voided Midstream Performed By: #### U A ####[address] Complete Blood Count Auto Di ffon 03-19-2024 Mean Corpuscular HGB Conc 33.3 g/dL Normal 32.5-35.6 [facility] Comment on above: Performed By: #### P T, PTT, CMP, MG, TSH3, CBC, HS TROP #### [place] [address] [place] Monocytes/100 WBC (Bld) 19.30 % Normal 0.00-20.00 [facility] Comment on above: Performed By: #### P T, PTT, CMP, MG, TSH3, CBC, HS TROP #### [address] NRBC% 0.0 /100{WBC} Normal 0-0.5 [facility] Comment on above: Performed By: #### P T, PTT, CMP, MG, TSH3, CBC, HS TROP #### [address] Comprehensive Metabolic Pane tim 03-19-2024 Albumin [Mass/Vol] 3.7 g/dL Normal 3.5-5.7 [facility] Comment on above: Performed By: #### P T, PTT, CMP, MG, TSH3, CBC, HS TROP #### [address] Creatinine Clr Calc Pharmacy 50.94 Normal [facility] Comment on above: Performed By: #### P T, PTT, CMP, MG, TSH3, CBC, HS TROP #### [address] GFR/1.73 sq M.predicted MDRD (S/P/Bld) [Vol rate/Area] mL/min/{1.73_m2} Normal [facility] Comment on above: Performed By: #### P T, PTT, CMP, MG, TSH3, CBC, HS TROP #### [address] Creatinine [Mass/volume] in Serum or PlasmaOrdered By: Shahbaz Lehman on 03-19-2024 Creatinine [Mass/Vol] 1.04 mg/dL Normal 0.70-1.30 [facility] Comment on above: Performed By: #### P T, PTT, CMP, MG, TSH3, CBC, HS TROP #### [address] ECG 12 lead ECGon 03-19-2024 ECG 12 lead ECG [facility] [place] [address] [place] [address] Electrocardiograph Report Signed Patient: Cristal Gu MR#: [id number] : 1955 Acct:[id number] Age/Sex: 69 / M ADM Date: 03/19/24 Loc: Room: [address] [place] [address] Type: ADM INOo Attending Dr: Jair Nichols MD Ordering Provider: Deborah Lamar MD Date of Service: 03/19/24 ECG/ECG 12 lead ECG: Neuro Symptoms/Deficit Copies to: Test Reason : Blood Pressure : */* mmHG Vent. Rate : 76 BPM Atrial Rate : 76 BPM P-R Int : 138 ms QRS Dur : 90 ms QT Int : 426 ms P-R-T Axes : 64 81 91 degrees QTcB Int : 479 ms Normal sinus rhythm t wave inversion lead I and avl When compared with ECG of 19-Mar-2024 10:01, premature ventricular complexes are no longer present ST no longer depressed in Lateral leads Confirmed by Deborah Lamar MD ([id number]) on 03/19/2024 11:02:32 PM Referred By: Electronically Signed By: Deborah Lamar MD Transcribed By: MUS Signed By Deborah Lamar MD 02/20 Normal [facility] ECG 12 lead ECG [facility] [place] [address] [place] [address] Electrocardiograph Report Signed Patient: Cristal Gu MR#: [id number] : 1955 Acct:[id number] Age/Sex: 69 / M ADM Date: 03/19/24 Loc: ER Room: Type: [facility] ER Attending Dr: Ordering Provider: Shahbaz Lehman DO Date of Service: 03/19/24 ECG/ECG 12 lead ECG: Neuro Symptoms/Deficit Copies to: Test Reason : Blood Pressure : 189/85 mmHG Vent. Rate : 67 BPM Atrial Rate : 67 BPM P-R Int : 136 ms QRS Dur : 88 ms QT Int : 470 ms P-R-T Axes : 70 92 122 degrees QTcB Int : 496 ms Sinus rhythm Confirmed by Shahbaz LEHMAN DO ([id number]) on 03/19/2024 4:01:20 PM Referred By: Electronically Signed By: Shahbaz LEHMAN DO Transcribed By: MUS Signed By Shahbaz Lehman DO 0 03/19/24 1601 Normal [facility] Erythrocyte distribution wid th [Ratio] by Automated countOrdered By: Shahbaz Lehman on 03-19-2024 Erythrocyte distribution width (RBC) [Ratio] 13.7 % Normal 12.0-14.8 [facility] Comment on above: Performed By: #### P T, PTT, CMP, MG, TSH3, CBC, HS TROP #### [facility] [address] [place] [id number] [facility] Erythrocytes [#/volume] in B lood by Automated countOrdered By: Shahbaz Lehman on 03-19-2024 RBC (Bld) [#/Vol] 3.61 10*6/uL Low 3.90-5.60 [facility] Comment on above: Performed By: #### P T, PTT, CMP, MG, TSH3, CBC, HS TROP #### [facility] [address] [place] [id number] [place] Glucose [Mass/volume] in Ser um or PlasmaOrdered By: Shahbaz Lehman on 03-19-2024 Glucose [Mass/Vol] 86 mg/dL Normal 70-100 [facility] Comment on above: ADA recommended refe rence rangeRandom Glucose Reference Range is dependent on time and content of last meal. Glucose of more than 200 mg/dL in a nonstressed, ambulatory subject supports the diagnosis of Diabetes Mellitus. Result Comment: [place] [facility] Glucose Reference Range is dependent on time and content of last meal. Glucose of more than 200 mg/dL in a nonstressed, ambulatory subject supports the diagnosis of Diabetes Mellitus. ADA recommended reference range Performed By: #### P T, PTT, CMP, MG, TSH3, CBC, HS TROP #### [facility] [address] [place] [id number] [place] Glucose [Mass/volume] in Uri ne by Test stripOrdered By: Shahbaz Lemhan on 03-19-2024 Glucose Test strip (U) [Mass/Vol] Normal mg/dL Normal [facility] Hematocrit [Volume Fraction] of Blood by Automated countOrdered By: Shahbaz Lehman on 03-19-2024 Hematocrit (Bld) [Volume fraction] 34.1 % Low 38.8-50.0 [facility] Comment on above: Performed By: #### P T, PTT, CMP, MG, TSH3, CBC, HS TROP #### [facility] [address] Hemoglobin Test strip Ql (U) Ordered By: Shahbaz Lehman on 03-19-2024 Hemoglobin Ql (U) Negative Negative [facility] Hemoglobin [Mass/volume] in BloodOrdered By: Shahbaz Lehman on 03-19-2024 Hemoglobin (Bld) [Mass/Vol] 11.3 g/dL Low 13.0-17.0 [facility] Comment on above: Performed By: #### P T, PTT, CMP, MG, TSH3, CBC, HS TROP #### [address] INR in Platelet poor plasma by Coagulation assayOrdered By: Shahbaz Lehman on 03-19-2024 INR Coag (PPP) [Relative time] 1.0 {INR} Normal [facility] Comment on above: INR Therapeutic Rang e A) Pre- and Peroperative OAT started two weeks before surgery. NOT HIP SURGERY: 1.5 - 2.5 HIP SURGERY: 2 - 3B) Primary and secondary prevention of venous THROMBOSIS: 2 - 3C) Active venous thrombosis, pulmonary embolismand prevention of recurrent venous thrombosis: 2 - 3D) Prevention of arterial thromboembolismincluding patients with mechanical heart valves: 3 - 4.5 Result Comment: INR Therapeutic Range A) Pre- and Peroperative OAT started two weeks before surgery. NOT HIP SURGERY: 1.5 - 2.5 HIP SURGERY: 2 - 3 B) Primary and secondary prevention of venous THROMBOSIS: 2 - 3 C) Active venous thrombosis, pulmonary embolism and prevention of recurrent venous thrombosis: 2 - 3 D) Prevention of arterial thromboembolism including patients with mechanical heart valves: 3 - 4.5 Performed By: #### P T, PTT, CMP, MG, TSH3, CBC, HS TROP #### [address] Ketones [Presence] in Urine by Test stripOrdered By: Shahbaz Lehman on 03-19-2024 Ketones Ql (U) Negative Normal Negative [facility] Comment on above: Order Comment: Name Collection Type:: Clean-Voided Midstream Performed By: #### U A ####[address] Leukocyte esterase [Presence ] in Urine by Test stripOrdered By: Shahbaz Lehman on 03-19-2024 Leukocyte esterase Test strip Ql (U) Negative Normal Negative [facility] Comment on above: Order Comment: Name Collection Type:: Clean-Voided Midstream Performed By: #### U A ####[address] Leukocytes [#/volume] correc nani for nucleated erythrocytes in Blood by Automated counOrdered By: Shahbaz Lehman on 03-19-2024 WBC corrected for nucl RBC Auto (Bld) [#/Vol] 7.1 10*3/uL 4.1-10.5 [facility] Leukocytes [#/volume] in Blo od by Automated countOrdered By: Shahbaz Lehman on 03-19-2024 WBC (Bld) [#/Vol] 7.1 10*3/uL Normal 4.1-10.5 [facility] Comment on above: Performed By: #### P T, PTT, CMP, MG, TSH3, CBC, HS TROP #### [place] [address] [place] Lymphocytes [#/volume] in Bl ood by Automated countOrdered By: Shahbaz Lehman on 03-19-2024 Lymphocytes (Bld) [#/Vol] 0.7 10*3/uL Low 1.00-4.8 [facility] Comment on above: Performed By: #### P T, PTT, CMP, MG, TSH3, CBC, HS TROP #### [facility] [address] [place] [address] [place] Lymphocytes/100 leukocytes i n Blood by Automated countOrdered By: Shahbaz Lehman on 03-19-2024 Lymphocytes/100 WBC (Bld) 10.3 % Normal . [facility] Comment on above: Performed By: #### P T, PTT, CMP, MG, TSH3, CBC, HS TROP #### [facility] [address] [place] [address] [place] MCH [Entitic mass] by Automa nani countOrdered By: Shahbaz Lehman on 03-19-2024 MCH (RBC) [Entitic mass] 31.4 pg Normal 27.5-35.2 [facility] Comment on above: Performed By: #### P T, PTT, CMP, MG, TSH3, CBC, HS TROP #### [facility] [address] MCHC Auto (RBC) [Mass/Vol]Or dered By: Shahbaz Lehman on 03-19-2024 MCHC (RBC) [Mass/Vol] 33.3 g/dL 32.5-35.6 [facility] MCV [Entitic volume] by Auto mated countOrdered By: Shahbaz Lehman on 03-19-2024 MCV (RBC) [Entitic vol] 94.3 fL Normal 83.5-101 [facility] Comment on above: Performed By: #### P T, PTT, CMP, MG, TSH3, CBC, HS TROP #### [facility] [address] Magnesium [Mass/volume] in S juanpablo or PlasmaOrdered By: Shahbaz Lehman on 03-19-2024 Magnesium [Mass/Vol] 1.6 mg/dL Low 1.9-2.7 [facility] Comment on above: Performed By: #### P T, PTT, CMP, MG, TSH3, CBC, HS TROP ####[facility] [address] Monocyte distribution width [Entitic volume] in Blood by AutomatedOrdered By: Shahbaz Lehman on 03-19-2024 Monocyte distribution width Auto (Bld) [Entitic vol] 19.30 % 0.00-20.00 [facility] Neutrophils [#/volume] in Bl ood by Automated countOrdered By: Shahbaz Lehman on 03-19-2024 Neutrophils (Bld) [#/Vol] 5.7 10*3/uL Normal 1.8-7.7 [facility] Comment on above: Performed By: #### P T, PTT, CMP, MG, TSH3, CBC, HS TROP #### [facility] [address] [place] [address] Nitrite Test strip Ql (U)Ord ered By: Shahbaz Lehman on 03-19-2024 Nitrite Ql (U) Negative Negative [facility] No Panel InformationOrdered By: Shahbaz Lehman on 03-19-2024 Estimated GFR (CKD-EPI) > 60.0 mL/Min [facility] Creatinine Clearance (Chem 50.94 [facility] Nucleated erythrocytes [Pres ence] in Blood by Automated countOrdered By: Shahbaz Lehman on 03-19-2024 Nucleated RBC Auto Ql (Bld) 0.0 /100{WBC} 0-0.5 [facility] Partial Thromboplastin Timeo n 03-19-2024 aPTT Coag (Bld) [Time] 29.4 s Normal 25.1-36.5 [facility] Comment on above: Result Comment: A he matocrit value greater than 55% may lead to inaccurate results in coagulation testing. Patients having hematocrit values >55% require a special collection tube for coagulation studies. Please contact the laboratory at [phone] for redraw instructions. PERFORMED BY: [address] [place] [address] PATHOLOGIST ALMOND PASTE MOLDER ALEX CROWLEY M.D. Performed By: #### P T, PTT, CMP, MG, TSH3, CBC, HS TROP #### [facility] [address] [place] [address] Platelet mean volume [Entiti c volume] in Blood by Automated countOrdered By: Shahbaz Lehman on 03-19-2024 Platelet mean volume (Bld) [Entitic vol] 9.2 fL Normal 6.6-10.1 [facility] Comment on above: Performed By: #### P T, PTT, CMP, MG, TSH3, CBC, HS TROP #### [facility] [address] [place] [address] [place] Platelets [#/volume] in Bloo d by Automated countOrdered By: Shahbaz Lehman on 03-19-2024 Platelets (Bld) [#/Vol] 239 10*3/uL Normal 150-450 [facility] Comment on above: Performed By: #### P T, PTT, CMP, MG, TSH3, CBC, HS TROP #### [facility] [address] Potassium [Moles/volume] in Serum or PlasmaOrdered By: Shahbaz Lehman on 03-19-2024 Potassium [Moles/Vol] 3.6 mmol/L Normal 3.5-5.1 [facility] Comment on above: Performed By: #### P T, PTT, CMP, MG, TSH3, CBC, HS TROP #### [facility] [address] Protein Test strip (U) [Mass /Vol]Ordered By: Shahbaz Lehman on 03-19-2024 Protein (U) [Mass/Vol] Negative Negative [facility] Protein [Mass/volume] in Ser um or PlasmaOrdered By: Shahbaz Lehman on 03-19-2024 Protein [Mass/Vol] 6.7 g/dL Normal 6.4-8.9 [facility] Comment on above: Performed By: #### P T, PTT, CMP, MG, TSH3, CBC, HS TROP #### [facility] [address] Prothrombin time (PT)Ordered By: Shahbaz Lehman on 03-19-2024 PT Coag (PPP) [Time] 11.6 s Normal 9.0-12.9 [facility] Comment on above: A hematocrit value g reater than 55% may lead to inaccurate results in coagulation testing. Patients having hematocrit values >55% require a special collection tube for coagulation studies. Please contact the laboratory at [phone] for redraw instructions. Result Comment: A he matocrit value greater than 55% may lead to inaccurate results in coagulation testing. Patients having hematocrit values >55% require a special collection tube for coagulation studies. Please contact the laboratory at [phone] for redraw instructions. Performed By: #### P T, PTT, CMP, MG, TSH3, CBC, HS TROP #### [facility] [address] [place] [id number] [facility] Serum globulin measurement b y calculation (mass/volume)Ordered By: Shahbaz Lehman on 03-19-2024 Globulin (S) [Mass/Vol] 3.0 g/dL Normal [facility] Comment on above: Performed By: #### P T, PTT, CMP, MG, TSH3, CBC, HS TROP #### [facility] [address] Serum or plasma albumin/glob ulin mass ratioOrdered By: Shahbaz Lehman on 03-19-2024 Albumin/Globulin [Mass ratio] 1.2 {ratio} Normal [facility] Comment on above: Performed By: #### P T, PTT, CMP, MG, TSH3, CBC, HS TROP #### [facility] [address] Serum or plasma anion gap de terminationOrdered By: Shahbaz Lehman on 03-19-2024 Anion gap [Moles/Vol] 11.0 mmol/L Normal 6.0-15.0 [facility] Comment on above: Performed By: #### P T, PTT, CMP, MG, TSH3, CBC, HS TROP #### [facility] [address] [place] [address] Sodium [Moles/volume] in Ser um or PlasmaOrdered By: Shahbaz Lehman on 03-19-2024 Sodium [Moles/Vol] 138 mmol/L Normal 136-145 [facility] Comment on above: Performed By: #### P T, PTT, CMP, MG, TSH3, CBC, HS TROP #### [facility] [address] [place] [address] Specific gravity Test strip (U) [Rel density]Ordered By: Shahbaz Lehman on 03-19-2024 Specific gravity (U) [Rel density] 1.010 1.001-1.030 [facility] Thyrotropin [Units/volume] i n Serum or PlasmaOrdered By: Shahbaz Lehman on 03-19-2024 TSH Qn 3.36 m[IU]/L Normal 0.45-5.33 [facility] Comment on above: Result Comment: PERF ORMED BY: [place] [address] PATHOLOGIST ALMOND PASTE MOLDER ALEX CROWLEY M.D. Performed By: #### P T, PTT, CMP, MG, TSH3, CBC, HS TROP ####[facility] [address] [place] [id number] [place] Troponin I High Sensitivityo n 03-19-2024 Troponin I High Sensitivity 18.2 pg/mL Normal 0.0-20.0 [facility] Comment on above: Result Comment: PERF ORMED BY: [place] [address] PATHOLOGIST ALMOND PASTE MOLDER ALEX CROWLEY M.D. Performed By: #### H S TROP ####[place] [id number] [facility] Troponin I High Sensitivity 19.4 pg/mL Normal 0.0-20.0 [facility] Comment on above: Result Comment: PERF ORMED BY: [place] [address] PATHOLOGIST ALMOND PASTE MOLDER ALEX CROWLEY M.D. Performed By: #### P T, PTT, CMP, MG, TSH3, CBC, HS TROP #### [address] Troponin I.cardiac [Mass/vol ume] in Serum or Plasma by Detection limit <= 0.01 ng/Ordered By: Deborah Lamar on 03-19-2024 Troponin I.cardiac DL <= 0.01 ng/mL [Mass/Vol] 18.2 pg/mL 0.0-20.0 [facility] Troponin I.cardiac [Mass/vol ume] in Serum or Plasma by Detection limit <= 0.01 ng/Ordered By: Shahbaz Lehman on 03-19-2024 Troponin I.cardiac DL <= 0.01 ng/mL [Mass/Vol] 19.4 pg/mL 0.0-20.0 [facility] Urea nitrogen [Mass/volume] in Serum or PlasmaOrdered By: Shahbaz Lehman on 03-19-2024 Urea nitrogen [Mass/Vol] 26 mg/dL High 7 [facility] Comment on above: Performed By: #### P T, PTT, CMP, MG, TSH3, CBC, HS TROP #### [facility] [address] [place] [address] [facility] Urinalysison 03-19-2024 Bilirubin,Urine Negative Normal Negative [facility] Comment on above: Order Comment: Name Collection Type:: Clean-Voided Midstream Performed By: #### U A ####[place] [id number] [facility] Glucose Ql (U) Normal Normal Normal [facility] Comment on above: Order Comment: Name Collection Type:: Clean-Voided Midstream Performed By: #### U A ####[place] [id number] [facility] Nitrite,Urine Negative Normal Negative [facility] Comment on above: Order Comment: Name Collection Type:: Clean-Voided Midstream Performed By: #### U A ####[place] [id number] [facility] Occult Blood,Urine Negative Normal Negative [facility] Comment on above: Order Comment: Name Collection Type:: Clean-Voided Midstream Result Comment: PERF ORMED BY: [facility] [address] [place] [address] PATHOLOGIST ALMOND PASTE MOLDER ALEX CROWLEY M.D. Performed By: #### U A ####[place] [id number] [facility] Protein,Urine Negative Normal Negative [facility] Comment on above: Order Comment: Name Collection Type:: Clean-Voided Midstream Performed By: #### U A ####[place] [id number] [facility] Specificy [place],Urine 1.010 Normal 1.001-1.030 [facility] Comment on above: Order Comment: Name Collection Type:: Clean-Voided Midstream Performed By: #### U A ####[place] [id number] [facility] Urobilinogen,Urine Normal Normal Normal [facility] Comment on above: Order Comment: Name Collection Type:: Clean-Voided Midstream Performed By: #### U A ####[place] [id number] [facility] Urine appearanceOrdered By: Shahbaz Lehman on 03-19-2024 Appearance (U) Clear Normal Clear [facility] Comment on above: Order Comment: Name Collection Type:: Clean-Voided Midstream Performed By: #### U A ####[facility] [address] [place] [address] [facility] Urobilinogen Test strip (U) [Mass/Vol]Ordered By: Shahbaz Lehman on 03-19-2024 Urobilinogen (U) [Mass/Vol] Normal mg/dL Normal [facility] XR chest 2V*on 03-19-2024 XR chest 2V* [facility] [address] [place] [address] [place] [address] XRay Report Signed Patient: Cristal Gu MR#: [id number] : 1955 Acct:[id number] Age/Sex: 69 / M ADM Date: 03/19/24 Loc: ER Room: Type: [facility] ER Attending Dr: Copies to: Shahbaz Lehman DO Ordering Provider: Shahbaz Lehman DO Date of Service: 03/19/24 XR/XR chest 2V*: Neuro Symptoms/Deficit Chest 2 views CLINICAL HISTORY: History of lung cancer. For capsule and off balance for several weeks. COMPARISON: Chest 02/07/2024. CT chest 01/03/2023 FINDINGS: Sternotomy wires are noted. Heart and mediastinal structures appear unchanged. Presuming posttreatment changes left lung. No new consolidation pneumothorax pleural effusion or free air. Presumed pulmonary nodule right lower lobe confirmed on a CT scan from 01/03/2023. XR/XR chest 2V* IMPRESSION: NO ACUTE FINDINGS. Impression dictated by: Star Mark Jr., D.OJudi03/19/2024 11:49 AM Dictation Location: [place] [address] Transcribed By: [facility] 03/19/24 1149 Dictated By: Star Mark Jr, DO 03/19/24 1148 Signed By: 03/19/24 1149 Normal [facility] pH of Urine by Test stripOrd ered By: Shahbaz Lehman on 03-19-2024 pH (U) 6.5 [pH] Normal 5.0-9.0 [facility] Comment on above: Order Comment: Name Collection Type:: Clean-Voided Midstream Performed By: #### U A ####[facility] [address] [place] [address] [place] CBC W Auto Differential pane l (Bld)on 03-18-2024 Basophils (Bld) [#/Vol] 10*3/uL Normal <0.11 [facility] Comment on above: Order Comment: Speci men Type: BLOOD SPECIMENOrdering Facility: [facility] Address: [address] [place] [address] Performed By: #### 5 7021-8 ####[facility] LABCLIA [id number] [place] [address] Basophils/100 WBC (Bld) 0.2 % Normal [facility] Comment on above: Order Comment: Speci men Type: BLOOD SPECIMENOrdering Facility: [facility] Address: [address] [place] [address] Performed By: #### 5 7021-8 ####[facility] LABCLIA [id number] [place] [address] Differential cell count method Nom (Bld) Auto Normal [facility] Comment on above: Order Comment: Speci men Type: BLOOD SPECIMENOrdering Facility: [facility] Address: [address] [place] [address] Performed By: #### 5 7021-8 ####[facility] LABCLIA [id number] [place] [address] Eosinophils (Bld) [#/Vol] 0.03 10*3/uL Normal <0.46 [facility] Comment on above: Order Comment: Speci men Type: BLOOD SPECIMENOrdering Facility: [facility] Address: [address] [place] [address] Performed By: #### 5 7021-8 ####[facility] LABCLIA [id number] [place] [address] Eosinophils/100 WBC (Bld) 0.3 % Normal [facility] Comment on above: Order Comment: Speci men Type: BLOOD SPECIMENOrdering Facility: [facility] Address: [address] [place] [address] Performed By: #### 5 7021-8 ####[facility] LABCLIA [id number] [place] [address] Erythrocyte distribution width (RBC) [Ratio] 13.2 % Normal 11.5-15.0 [facility] Comment on above: Order Comment: Speci men Type: BLOOD SPECIMENOrdering Facility: [facility] Address: [address] [place] [address] Performed By: #### 5 7021-8 ####[facility] LABCLIA [id number] [place] [address] Hematocrit (Bld) [Volume fraction] 33.8 % Low 39.0-51.0 [facility] Comment on above: Order Comment: Speci men Type: BLOOD SPECIMENOrdering Facility: [facility] Address: [address] [place] [address] Performed By: #### 5 7021-8 ####[facility] LABIA [id number] [place] [address] Hemoglobin (Bld) [Mass/Vol] 11.3 g/dL Low 13.0-17.0 [facility] Comment on above: Order Comment: Speci men Type: BLOOD SPECIMENOrdering Facility: [facility] Address: [address] [place] [address] Performed By: #### 5 7021-8 ####[facility] LABIA [id number] [place] [address] Immature granulocytes (Bld) [#/Vol] 0.05 10*3/uL Normal <0.10 [facility] Comment on above: Order Comment: Speci men Type: BLOOD SPECIMENOrdering Facility: [facility] Address: [address] [place] [address] Performed By: #### 5 7021-8 ####[facility] LABCLIA [id number] [place] [address] Immature granulocytes/100 WBC (Bld) 0.6 % Normal [facility] Comment on above: Order Comment: Speci men Type: BLOOD SPECIMENOrdering Facility: [facility] Address: [address] [place] [address] Performed By: #### 5 7021-8 ####[facility] LABCLIA [id number] [place] [address] Lymphocytes (Bld) [#/Vol] 0.85 10*3/uL Low 1.00-4.00 [facility] Comment on above: Order Comment: Speci men Type: BLOOD SPECIMENOrdering Facility: [facility] Address: [address] [place] [address] Performed By: #### 5 7021-8 ####[facility] LABCLIA [id number] [place] [address] Lymphocytes/100 WBC (Bld) 9.9 % Normal [facility] Comment on above: Order Comment: Speci men Type: BLOOD SPECIMENOrdering Facility: [facility] Address: [address] [place] [address] Performed By: #### 5 7021-8 ####[facility] LABCLIA [id number] [place] [address] MCH (RBC) [Entitic mass] 31.0 pg Normal 26.0-34.0 [facility] Comment on above: Order Comment: Speci men Type: BLOOD SPECIMENOrdering Facility: [facility] Address: [address] [place] [address] Performed By: #### 5 7021-8 ####[facility] LABIA [id number] [place] [address] MCHC (RBC) [Mass/Vol] 33.4 g/dL Normal 30.5-36.0 [facility] Comment on above: Order Comment: Speci men Type: BLOOD SPECIMENOrdering Facility: [facility] Address: [address] [place] [address] Performed By: #### 5 7021-8 ####[facility] LABCLIA [id number] [place] [address] MCV (RBC) [Entitic vol] 92.6 fL Normal 80.0-100.0 [facility] Comment on above: Order Comment: Speci men Type: BLOOD SPECIMENOrdering Facility: [facility] Address: [address] [place] [address] Performed By: #### 5 7021-8 ####[facility] LABCLIA [id number] [place] [address] Monocytes (Bld) [#/Vol] 0.82 10*3/uL Normal <0.87 [facility] Comment on above: Order Comment: Speci men Type: BLOOD SPECIMENOrdering Facility: [facility] Address: [address] [place] [address] Performed By: #### 5 7021-8 ####[facility] LABIA [id number] [place] [address] Monocytes/100 WBC (Bld) 9.6 % Normal [facility] Comment on above: Order Comment: Speci men Type: BLOOD SPECIMENOrdering Facility: [facility] Address: [address] [place] [address] Performed By: #### 5 7021-8 ####[facility] LABCLIA [id number] [place] [address] Neutrophils (Bld) [#/Vol] 6.81 10*3/uL Normal 1.45-7.50 [facility] Comment on above: Order Comment: Speci men Type: BLOOD SPECIMENOrdering Facility: [facility] Address: [address] [place] [address] Performed By: #### 5 7021-8 ####[facility] LABCLIA [id number] [place] [address] Neutrophils/100 WBC (Bld) 79.4 % Normal [facility] Comment on above: Order Comment: Speci men Type: BLOOD SPECIMENOrdering Facility: [facility] Address: [address] [place] [address] Performed By: #### 5 7021-8 ####[facility] LABCLIA [id number] [place] [address] Nucleated RBC (Bld) [#/Vol] 10*3/uL Normal <0.01 [facility] Comment on above: Order Comment: Speci men Type: BLOOD SPECIMENOrdering Facility: [facility] Address: [address] [place] [address] Performed By: #### 5 7021-8 ####[facility] LABCLIA [id number] [place] [address] Nucleated RBC/100 WBC (Bld) [Ratio] 0.0 /100 WBC Normal [facility] Comment on above: Order Comment: Speci men Type: BLOOD SPECIMENOrdering Facility: [facility] Address: [address] [place] [address] Performed By: #### 5 7021-8 ####[facility] LABCLIA [id number] [place] [address] Platelet mean volume (Bld) [Entitic vol] 10.4 fL Normal 9.0-12.7 [facility] Comment on above: Order Comment: Speci men Type: BLOOD SPECIMENOrdering Facility: [facility] Address: [address] [place] [address] Performed By: #### 5 7021-8 ####[facility] LABCLIA [id number] [place] [address] Platelets (Bld) [#/Vol] 250 10*3/uL Normal 150-400 [facility] Comment on above: Order Comment: Speci men Type: BLOOD SPECIMENOrdering Facility: [facility] Address: [address] [place] [address] Performed By: #### 5 7021-8 ####[facility] LABCLIA [id number] [place] [address] RBC (Bld) [#/Vol] 3.65 10*6/uL Low 4.20-6.00 [facility] Comment on above: Order Comment: Speci men Type: BLOOD SPECIMENOrdering Facility: [facility] Address: [address] [place] [address] Performed By: #### 5 7021-8 ####[facility] LABCLIA [id number] [place] [address] WBC (Bld) [#/Vol] 8.58 10*3/uL Normal 3.70-11.00 [facility] Comment on above: Order Comment: Speci men Type: BLOOD SPECIMENOrdering Facility: [facility] Address: [address] [place] [address] Performed By: #### 5 7021-8 ####[facility] LABCLIA [id number] [place] [address] CNOVSPon 03-18-2024 CNOVSP Normal [facility] Comprehensive metabolic 2000 panelon 03-18-2024 Albumin [Mass/Vol] 4.2 g/dL Normal 3.9-4.9 [facility] Comment on above: Order Comment: Speci men Type: BLOOD SPECIMENOrdering Facility: [facility] Address: [address] [place] [address] Performed By: #### 2 4323-8 ####[facility] LABCLIA [id number] [place] [address] ALP [Catalytic activity/Vol] 43 U/L Normal 38-113 [facility] Comment on above: Order Comment: Speci men Type: BLOOD SPECIMENOrdering Facility: [facility] Address: [address] [place] [address] Performed By: #### 2 4323-8 ####[facility] LABCLIA [id number] [place] [address] ALT [Catalytic activity/Vol] 7 U/L Low 10-54 [facility] Comment on above: Order Comment: Speci men Type: BLOOD SPECIMENOrdering Facility: [facility] Address: [address] [place] [address] Performed By: #### 2 4323-8 ####[facility] LABCLIA [id number] [place] [address] Anion gap [Moles/Vol] 9 mmol/L Normal 8-15 [facility] Comment on above: Order Comment: Speci men Type: BLOOD SPECIMENOrdering Facility: [facility] Address: [address] [place] [address] Performed By: #### 2 4323-8 ####[facility] LABCLIA [id number] [place] [address] AST [Catalytic activity/Vol] 11 U/L Low 14-40 [facility] Comment on above: Order Comment: Speci men Type: BLOOD SPECIMENOrdering Facility: [facility] Address: [address] [place] [address] Performed By: #### 2 4323-8 ####[facility] LABCLIA [id number] [place] [address] Bilirubin [Mass/Vol] 0.3 mg/dL Normal 0.2-1.3 [facility] Comment on above: Order Comment: Speci men Type: BLOOD SPECIMENOrdering Facility: [facility] Address: [address] [place] [address] Performed By: #### 2 4323-8 ####[facility] LABCLIA [id number] [place] [address] Calcium [Mass/Vol] 10.0 mg/dL Normal 8.5-10.2 [facility] Comment on above: Order Comment: Speci men Type: BLOOD SPECIMENOrdering Facility: [facility] Address: [address] [place] [address] Performed By: #### 2 4323-8 ####[facility] LABCLIA [id number] [place] [address] Chloride [Moles/Vol] 103 mmol/L Normal 98-107 [facility] Comment on above: Order Comment: Speci men Type: BLOOD SPECIMENOrdering Facility: [facility] Address: [address] [place] [address] Performed By: #### 2 4323-8 ####[facility] LABCLIA [id number] [place] [address] CO2 [Moles/Vol] 27 mmol/L Normal 22-30 [facility] Comment on above: Order Comment: Speci men Type: BLOOD SPECIMENOrdering Facility: [facility] Address: [address] [place] [address] Performed By: #### 2 4323-8 ####[facility] LABCLIA [id number] [place] [address] Creatinine [Mass/Vol] 1.08 mg/dL Normal 0.73-1.22 [facility] Comment on above: Order Comment: Speci men Type: BLOOD SPECIMENOrdering Facility: [facility] Address: [address] [place] [address] Performed By: #### 2 4323-8 ####[facility] LABCLIA [id number] [place] [address] Creatinine and Glomerular filtration rate.predicted panel (S/P/Bld) 75 mL/min/1.73m??? Normal >=60 [facility] Comment on above: Order Comment: Speci men Type: BLOOD SPECIMENOrdering Facility: [facility] Address: [address] [place] [address] Result Comment: Landy mated Glomerular Filtration Rate [...] actual GFR. Performed By: #### 2 4323-8 ####[facility] LABIA [id number] [place] [address] Glucose [Mass/Vol] 87 mg/dL Normal 74-99 [facility] Comment on above: Order Comment: Ajay rausch Type: BLOOD SPECIMENOrdering Facility: [facility] Address: [address] [place] [address] Result Comment: The [place] [employer] (ADA) provides guidance for cutoff [...] Standards of Medical Care in Diabetes 2016, [place] [employer]. Diabetes Care. 2016.39(Suppl 1). Performed By: #### 2 4323-8 ####[facility] LABCLIA [id number] [place] [address] Potassium [Moles/Vol] 4.1 mmol/L Normal 3.7-5.1 [facility] Comment on above: Order Comment: Ajay rausch Type: BLOOD SPECIMENOrdering Facility: [facility] Address: [address] [place] [address] Performed By: #### 2 4323-8 ####[facility] LABIA [id number] [place] [address] Protein [Mass/Vol] 6.9 g/dL Normal 6.3-8.0 [facility] Comment on above: Order Comment: Ajay rausch Type: BLOOD SPECIMENOrdering Facility: [facility] Address: [address] [place] [id number] Performed By: #### 2 4323-8 ####[facility] LABCLIA [id number] [place] [address] Sodium [Moles/Vol] 139 mmol/L Normal 136-144 [facility] Comment on above: Order Comment: Speci men Type: BLOOD SPECIMENOrdering Facility: [facility] Address: [address] [place], [place] [address] Performed By: #### 2 4323-8 ####[facility] LABCLIA [id number] [place] [address] Urea nitrogen [Mass/Vol] 27 mg/dL High 9- [facility] Comment on above: Order Comment: Speci men Type: BLOOD SPECIMENOrdering Facility: [facility] Address: [address] [place] [address] Performed By: #### 2 4323-8 ####[facility] LABCLIA [id number] [place] [address] ECG 12 lead ECGon 03-18-2024 ECG 12 lead ECG [facility] Main [place] [id number] Electrocardiograph Report Signed Patient: Cristal Gu MR#: [id number] : 1955 Acct:[id number] Age/Sex: 69 / M ADM Date: 03/18/24 Loc: ER Room: Type: [facility] ER Attending Dr: Ordering Provider: Abel De La Cruz DO Date of Service: 03/18/24 ECG/ECG 12 lead ECG: Back Pain/Injury Copies to: Test Reason : Blood Pressure : 211/98 mmHG Vent. Rate : 67 BPM Atrial Rate : 67 BPM P-R Int : 130 ms QRS Dur : 88 ms QT Int : 456 ms P-R-T Axes : 57 102 96 degrees QTcB Int : 481 ms Normal sinus rhythm Prolonged QT Abnormal ECG When compared with ECG of 07-Feb-2024 15:47, No significant change was found Confirmed by Jonathan Chan ([id number]) on 03/20/2024 6:35:46 PM Referred By: Electronically Signed By: Jonathan Chan Transcribed By: MUS Signed By Jonathan Chan MD 03/20/24 1835 Normal [facility] TSH SerPl-aCncon 03-18-2024 TSH Qn 6.660 m[IU]/L High 0.270-4.200 [facility] Comment on above: Order Comment: Speci men Type: BLOOD SPECIMENOrdering Facility: [facility] Address: [address] [place] [address] Performed By: #### 3 016-3 ####[facility] LABCLIA [id number] [facility] [id number] Ambulatory Visit Summaryon 0 03-17-2024 Ambulatory Visit Summary Ambulatory Visit Summary CRISTAL GU :1955 Visit Date:03/17/2024 Ambulatory Visit Instructions Your Diagnosis Former smoker BMI less than 19,adult Your Care Team Attending Physician - Enrique Austin Primary Care Physician - Enrique Austin This Is Your Medications List alprazolam (alprazolam 0.5 mg Tab) atorvastatin (atorvastatin 40 mg Tab) cilostazol (cilostazol 100 mg Tab) clopidogrel (clopidogrel 75 mg Tab) dexamethasone (dexamethasone 4 mg Tab) isosorbide mononitrate (isosorbide mononitrate 30 mg ER Tab) levothyroxine (levothyroxine 75 mcg (0.075 mg) Tab) metoprolol (metoprolol 25 mg ER Tab) olanzapine (olanzapine 5 mg oral tablet, disintegrating) oxycodone (oxycodone 10 mg oral tablet) pregabalin (pregabalin 75 mg Cap) sotorasib (Lumakras 320 mg oral tablet) Procedures Performed CABG (Coronary artery bypass grafting) planned, Lobectomy of lung. Discharge Vitals Temperature (Temporal Artery) 37.0 ?C Heart Rate (Peripheral) 94 Respiratory Rate 16 Blood Pressure 116/78 Height 169.5 cm Height 67 in Weight 50.0 kg Weight 110 lb BMI 17.4 What to do next Scheduled Follow-Up Appointments Friday 10:00 AM EDT With: Enrique Austin Where: [address] [address]- Friday 11:00 AM EDT With: Where: [address] [address]- Medications What How Much When Instructions Unchanged alprazolam (alprazolam 0.5 mg Tab) 1 Tablets By Mouth 3 times a day as needed for for anxiety Unchanged atorvastatin (atorvastatin 40 mg Tab) 1 Tablets By Mouth Every day Unchanged cilostazol (cilostazol 100 mg Tab) 60 EA, TAKE 1 TABLET BY MOUTH IN THE MORNING AND AT BEDTIME Unchanged clopidogrel (clopidogrel 75 mg Tab) 1 Tablets By Mouth Every day Unchanged dexamethasone (dexamethasone 4 mg Tab) TAKE 1 TABLET BY MOUTH TWICE DAILY WITH MEALS Unchanged isosorbide mononitrate (isosorbide mononitrate 30 mg ER Tab) Unchanged levothyroxine (levothyroxine 75 mcg (0.075 mg) Tab) 1 Tablets By Mouth Every day TAKE 1 TABLET BY MOUTH DAILY Unchanged metoprolol (metoprolol 25 mg ER Tab) 1 Tablets By Mouth 2 times a day Unchanged olanzapine (olanzapine 5 mg oral tablet, disintegrating) 1 Tablets By Mouth Every day Unchanged oxycodone (oxycodone 10 mg oral tablet) TAKE 1 TO 2 TABLETS BY MOUTH EVERY 4 HOURS NEEDED FOR PAIN for up to 30 days Unchanged pregabalin (pregabalin 75 mg Cap) 1 Capsules By Mouth 3 times a day Unchanged sotorasib (Lumakras 320 mg oral tablet) 90 tab(s), 0 Refill(s) Allergies No Known Allergies Problems Ongoing - Any problem that you are currently receiving treatment for. Anxiety CAD (coronary artery disease) Chest congestion Emphysema lung Fluid level behind tympanic membrane of both ears Insomnia Lung cancer Mass of tongue Pharyngitis Rash Sinusitis Patient Survey You may receive a survey via text or e-mail asking about your office visit. Please share your experience with us by completing your survey. We appreciate your feedback and thank you for choosing us for your care. Normal [facility] Family Medicine Office/Clini c Noteon 03-17-2024 Family Medicine Office/Clinic Note Family Medicine Office/Clinic Note HPI Staff Cristal is a 69 year old male presenting with Onset: started 3-4 weeks ago Location: left arm Duration: Characteristics:_swo llen, pain Aggravated by: has a hard time lifting arm it radiates into his shoulder Relieved by: Timing:_ Associated Symptoms:_ none runny nose, coughing up phlegm 2 fingers and thumb left hand swollen and hurts he said it feels like his hand has fallen asleep he thinks they have been getting worse in the last couple weeks He said he has a sore throat too but thinks it is from his cancer History of Present Illness pt presents today with left arm pain with swelling and numbness of 2 fingers and thumb of left hand Review of Systems PHQ Score Initial Depression Screen Score: 0 SCORE Physical Exam Vitals & Measurements T: 37.0 ?C(Temporal Artery) HR: 94(Peripheral) RR: 16 BP: 116/78 SpO2: 99% HT: 67 in HT: 169.5 cm WT: 50.0 kg WT: 110 lb BMI: 17.4 General: alert, no acute distress ENMT: oral mucosa moist, no pharyngeal erythema or exudate Cardiovascular: regular rate and rhythm, normal peripheral perfusion Respiratory: Lungs CTA, respirations non labored Extremities: no deformity, no trauma Neurological: oriented x 4, LOC appropriate for age, CN II-XII intact, motor strength equal & normal bilaterally, speech normal Assessment/Plan 1. Left arm pain (M79.602: Pain in left arm) pt c/o worsening left arm pain with numbness and swelling of fingers. pt is not taking oxycodone for pain. he does have gabapentin at home. encouraged him to try that. pt was scheduled to see someone at [facility] for his left arm pain but missed appointment. he will call office with the name of that provider. will order EMG if that provider does not. this provider is suspecting that cancer has spread and may possibly be in bone or spine which is causing these symptoms. pt had screening last week and meets with oncologist tomorrow to go over results. RTC as needed 2. Numbness of fingers (R20.0: Anesthesia of skin) see above 3. BMI less than 19,adult (Z68.1: Body mass index [BMI] 19.9 or less, adult) BMI education given 4. Former smoker (Z87.891: Personal history of nicotine dependence) continue not smoking Follow-up No qualifying data available Problem List/Past Medical History Ongoing Anxiety CAD (coronary artery disease) Chest congestion Emphysema lung Fluid level behind tympanic membrane of both ears Insomnia Left arm pain Lung cancer Mass of tongue Numbness of fingers Pharyngitis Rash Sinusitis Historical No qualifying data Procedure/Surgical History CABG (Coronary artery bypass grafting) planned, Lobectomy of lung. Medications alprazolam 0.5 mg Tab, 0.5 mg= 1 tab(s), Oral, TID, PRN atorvastatin 40 mg Tab, 40 mg= 1 tab(s), Oral, Daily cilostazol 100 mg Tab clopidogrel 75 mg Tab, 75 mg= 1 tab(s), Oral, Daily dexamethasone 4 mg Tab isosorbide mononitrate 30 mg ER Tab levothyroxine [...] days ago, quit 2022 Tobacco Use:. Cigarettes, Stopped age 68 Years. Household tobacco concerns: No., 03/17/2024 Family History Primary malignant neoplasm of lung: Father. Immunizations Vaccine Date Status SARS-CoV-2 (COVID-19) mRNA-1273 vaccine 07/17/2021 Recorded SARS-CoV-2 (COVID-19) mRNA-1273 vaccine 06/19/2021 Recorded SARS-CoV-2 (COVID-19) mRNA-1273 vaccine 12/13/2020 Recorded SARS-CoV-2 (COVID-19) mRNA-1273 vaccine 11/15/[address] [facility] Comment on above: Result Comment: Elec tronically Signed By: Enrique Austin\.br\Date and Time Signed: 03/17/24 12:13 EDT CNOVon 03-15-2024 CNOV Normal [facility] CNPNon 03-15-2024 CNPN Normal [facility] CNPNon 03-09-2024 CNPN Normal [facility] GLUCOSE, BLOOD (POC)on 03-09 Glucose [Mass/Vol] 93 mg/dL 74 - 99 mg/dL [facility] Comment on above: Location:[facility], [address] [place] [address] , [place], [place], [address] The Accu-Chek Inform II glucose meter has not been approved for testing on patients receiving intensive medical intervention or therapy and results from this point of care glucose test should not be used for patient management decisions in these cases. Inaccurate results may also occur from other interfering factors, such as N-acetylcysteine (blood concentrations of greater than 5mg/dL), galactose, extremes of hematocrit (<10 or >65), or high doses of ascorbic acid (vitamin C) greater than 3mg/dL. Consider alternate testing mechanisms (e.g. core lab, blood gas instrument) in the above situations. [facility] NM PET/CT SKULL-THIGH SUBQon 03-09-2024 NM PET/CT SKULL-THIGH SUBQ Normal [facility] PET+CT Guidance for localiza tion of tumor of Skull base to mid-thigh-- W 18F-FDG Anoop 03-09-2024 IMPRESSION: PRIMARY SITE: CHEST: Hypermetabolic bilateral lung nodules/masses with interval progression from prior PET scan. KAMILAH DISEASE: Hypermetabolic right hilar lymphadenopathy. Hypermetabolic left subpectoral region mass with some interval decrease in activity. METASTASES: No distant hypermetabolic metastases. OTHER FINDINGS: Persistent hypermetabolic focus in the right tonsillar/tongue base region Transcribe Date/Time: Mar 09 2024 5:56P Dictated by: JILL MARION MD This examination was interpreted and the report reviewed and electronically signed by: JILL MARION MD on Mar 09 2024 6:22PM EST Thank you for allowing us to participate in the care of your patient. Should there be any questions regarding this interpretation, please call [phone]. If you are unable to reach us at the number above, please feel free to contact [facility] eRadiology at [phone]. DIVISION OF RADIOLOGY * * *Final Report* * * DATE OF EXAM: Mar 09 2024 11:55AM NRN [id number] - NM PET/CT SKULL-THIGH SUBQ / PROCEDURE REASON: multiple diagnoses * * * * Physician Interpretation * * * * RESULT: EXAMINATION: BODY FDG PET-CT CLINICAL HISTORY: Lung cancer, subsequent treatment strategy TECHNIQUE: Radiopharmaceutical was administered intravenously followed by PET imaging from the skull vertex to thighs. Free breathing, low dose CT of the same body region was acquired without IV contrast for attenuation correction and anatomic localization. Unenhanced imaging is limited for the evaluation of some pathology and the acquired CT was not designed to produce diagnostic CT scan quality. Physiologic/non-path ologic uptake in some body regions could confound or obscure some pathology. * CT Dose-Length Product (DLP): 161 mGy*cm * CT Dose Reduction Employed: Yes * Blood glucose: 98 mg/dL * Injected activity: 5.8 mCi * Uptake Time: minutes * Radiopharmaceutical: R71-Wwsltdvkmjhnjzxa se (FDG) COMPARISON: PET/CT 11/25/2023 RESULT: REFERENCES: FDG uptake is used as a surrogate marker for glucose metabolism. All reported standardized uptake values represent maximum SUV (SUVmax) per body weight, unless otherwise specified. SUV reference values, as follows: * Blood Pool (Descending Aorta): SUVmax 2 * Background Liver: SUVmax 2.7; SUVmean 1.7 Localizer Images: No additional findings. HEAD AND NECK: Head: No radiotracer avid lesion or mass effect in the imaged intracranial compartment. Aerodigestive Tract: No radiotracer avid lesion. Lymph Nodes: No radiotracer avid lymphadenopathy. Neck Soft Tissues: Persistent hypermetabolic focus/thickening right tonsillar and tongue base region (Max SUV 12). No radiotracer avid thyroid nodule. CHEST: Lungs & Pleura: Surgical changes in the left upper lung. Interval progression of the Multiple hypermetabolic bilateral lung nodules/masses. Most dominant medial left lower lobe mass measures 2.5 x 3.1 cm (max SUV 40.5 previously smaller with less activity max SUV 25.1). Additional lesions for example in the right hilar region 2.7 cm (max SUV 22 increased from prior max SUV 6.6), nodule right midlung 1.3 x 1.5 cm (max SUV 6.7 increased from prior max SUV 2.4). New lesions for example right infrahilar region 0.9 cm (max SUV 7.7), right lower lobe 1.3 cm (max SUV 7.6). No pleural effusion. Lymph Nodes: No radiotracer avid lymphadenopathy. Mediastinum: Hypermetabolic right hilar lymph node measuring 1.6 cm (max SUV 25). Cardiovascular: Blood pool activity. No pericardial effusion. Normal heart size. Chest Wall: Heterogeneous hypermetabolic soft tissue density in the left pectoral region measuring about 3.4 x 4.7 cm (Max SUV 4.9 previously max SUV 5.5). ABDOMEN AND PELVIS: Hepatobiliary: No radiotracer avid lesion. No measurable mass. Spleen: No radiotracer avid lesion. No splenomegaly. Pancreas: No radiotracer avid lesion. Adrenals: No radiotracer avid nodule. Urinary Tract: Physiologic radiotracer excretion in the renal collecting systems and urinary bladder. No hydronephrosis. GI Tract: No radiotracer avid lesion. No bowel dilation. Peritoneum: No radiotracer avid lesion. No ascites. Lymph Nodes: No radiotracer avid lymphadenopathy. Vasculature: Blood pool activity. Pelvic Organs: No radiotracer avid lesion. MUSCULOSKELETAL: Bones: No radiotracer avid lesion. No lytic or sclerotic lesion. Soft Tissues: No radiotracer avid lesion. DIVISION OF RADIOLOGY Provider, [facility] [place] - 03/09/2024 * * *Final Report* * * DATE OF EXAM: Mar 09 2024 11:55AM NRN [id number] - NM PET/CT SKULL-THIGH SUBQ / PROCEDURE REASON: multiple diagnoses * * * * Physician Interpretation * * * * RESULT: EXAMINATION: BODY FDG PET-CT CLINICAL HISTORY: Lung cancer, subsequent treatment strategy TECHNIQUE: Radiopharmaceutical was administered intravenously followed by PET imaging from the skull vertex to thighs. Free breathing, low dose CT of the same body region was acquired without IV contrast for attenuation correction and anatomic localization. Unenhanced imaging is limited for the evaluation of some pathology and the acquired CT was not designed to produce diagnostic CT scan quality. Physiologic/non-path ologic uptake in some body regions could confound or obscure some pathology. * CT Dose-Length Product (DLP): 161 mGy*cm * CT Dose Reduction Employed: Yes * Blood glucose: 98 mg/dL * Injected activity: 5.8 mCi * Uptake Time: minutes * Radiopharmaceutical: F25-Ezozbqdnacczhhhm se (FDG) COMPARISON: PET/CT 11/25/2023 RESULT: REFERENCES: FDG uptake is used as a surrogate marker for glucose metabolism. All reported standardized uptake values represent maximum SUV (SUVmax) per body weight, unless otherwise specified. SUV reference values, as follows: * Blood Pool (Descending Aorta): SUVmax 2 * Background Liver: SUVmax 2.7; SUVmean 1.7 Localizer Images: No additional findings. HEAD AND NECK: Head: No radiotracer avid lesion or mass effect in the imaged intracranial compartment. Aerodigestive Tract: No radiotracer avid lesion. Lymph Nodes: No radiotracer avid lymphadenopathy. Neck Soft Tissues: Persistent hypermetabolic focus/thickening right tonsillar and tongue base region (Max SUV 12). No radiotracer avid thyroid nodule. CHEST: Lungs & Pleura: Surgical changes in the left upper lung. Interval progression of the Multiple hypermetabolic bilateral lung nodules/masses. Most dominant medial left lower lobe mass measures 2.5 x 3.1 cm (max SUV 40.5 previously smaller with less activity max SUV 25.1). Additional lesions for example in the right hilar region 2.7 cm (max SUV 22 increased from prior max SUV 6.6), nodule right midlung 1.3 x 1.5 cm (max SUV 6.7 increased from prior max SUV 2.4). New lesions for example right infrahilar region 0.9 cm (max SUV 7.7), right lower lobe 1.3 cm (max SUV 7.6). No pleural effusion. Lymph Nodes: No radiotracer avid lymphadenopathy. Mediastinum: Hypermetabolic right hilar lymph node measuring 1.6 cm (max SUV 25). Cardiovascular: Blood pool activity. No pericardial effusion. Normal heart size. Chest Wall: Heterogeneous hypermetabolic soft tissue density in the left pectoral region measuring about 3.4 x 4.7 cm (Max SUV 4.9 previously max SUV 5.5). ABDOMEN AND PELVIS: Hepatobiliary: No radiotracer avid lesion. No measurable mass. Spleen: No radiotracer avid lesion. No splenomegaly. Pancreas: No radiotracer avid lesion. Adrenals: No radiotracer avid nodule. Urinary Tract: Physiologic radiotracer excretion in the renal collecting systems and urinary bladder. No hydronephrosis. GI Tract: No radiotracer avid lesion. No bowel dilation. Peritoneum: No radiotracer avid lesion. No ascites. Lymph Nodes: No radiotracer avid lymphadenopathy. Vasculature: Blood pool activity. Pelvic Organs: No radiotracer avid lesion. MUSCULOSKELETAL: Bones: No radiotracer avid lesion. No lytic or sclerotic lesion. Soft Tissues: No radiotracer avid lesion. IMPRESSION IMPRESSION: PRIMARY SITE: CHEST: Hypermetabolic bilateral lung nodules/masses with interval progression from prior PET scan. KAMILAH DISEASE: Hypermetabolic right hilar lymphadenopathy. Hypermetabolic left subpectoral region mass with some interval decrease in activity. METASTASES: No distant hypermetabolic metastases. OTHER FINDINGS: Persistent hypermetabolic focus in the right tonsillar/tongue base region Transcribe Date/Time: Mar 09 2024 5:56P Dictated by: JILL MARION MD This examination was interpreted and the report reviewed and electronically signed by: JILL MARION MD on Mar 09 2024 6:22PM EST Thank you for allowing us to participate in the care of your patient. Should there be any questions regarding this interpretation, please call [phone]. If you are unable to reach us at the number above, please feel free to contact [facility] eRadiology at [phone]. [facility] Radiology Study observation (narrative) [facility] PET+CT Guidance for localiza tion of tumor of Skull base to mid-thigh-- W 18F-FDG IVOrdered By: Ccf Provider on 03-09-2024 [facility] CNPNon 03-01-2024 CNPN Normal [facility] Family Medicine Office/Clini c Noteon 03-01-2024 Family Medicine Office/Clinic Note Family Medicine Office/Clinic Note HPI Staff Vasquez is a 69 year old male presenting for ER follow up ER followup: [facility] [place] Visit date: 02/20/24 Symptoms the patient presented with: sore throat Ct soft tissue neck, abnormal Current concerns: has not got any better. Gargle with Listerine..., did seem to help some History of Present Illness pt presents today for ER follow up. was found to have mass on his tongue. Review of Systems PHQ Score Initial Depression Screen Score: 0 SCORE Physical Exam Vitals & Measurements T: 36.9 ?C(Temporal Artery) HR: 88(Peripheral) RR: 18 BP: 138/84 SpO2: 98% HT: 67 in HT: 169.5 cm WT: 50.8 kg WT: 111.76 lb BMI: 17.68 General: alert, no acute distress ENMT: oral mucosa moist, no pharyngeal erythema or exudate Cardiovascular: regular rate and rhythm, normal peripheral perfusion Respiratory: Lungs CTA, respirations non labored Extremities: no deformity, no trauma Neurological: oriented x 4, LOC appropriate for age, CN II-XII intact, motor strength equal & normal bilaterally, speech normal Assessment/Plan 1. Mass of tongue (K14.8: Other diseases of tongue) pt presents today for ER follow up. pt had terrible sore throat. CT scan showed mass on right posterior tongue. in the area where his throat hurts. according to ER noted magic mouthwash was ordered but patient was never told to pick it up at pharmacy. will send order to [facility]. pt was provided Dr. Guaman's phone number to find out what time his appointment is. pt feels his cancer is worsening and he doesn't have much time left. Does not see oncology until end of month. Has to call pain management after this appointment for refills for pain medication Ordered: Current tobacco non-user 1036F Depression Screening Negative 3352F Influenza immunization status assessed 1030F Most recent diastolic blood pressure 80-89 mm Hg 3079F Patient screen for fall risk: no falls in last year or 1 fall with no injury in last year 1101F Systolic BP <130 mm Hg (Most Recent) 3074F 2. Former smoker (Z87.891: Personal history of nicotine dependence) continue not smoking Ordered: Current tobacco non-user 1036F Depression Screening Negative 3352F Influenza immunization status assessed 1030F Most recent diastolic blood pressure 80-89 mm Hg 3079F Patient screen for fall risk: no falls in last year or 1 fall with no injury in last year 1101F Systolic BP <130 mm Hg (Most Recent) 3074F 3. BMI less than 19,adult (Z68.1: Body mass index [BMI] 19.9 or less, adult) pt currently has lung cancer, and now has mass on tongue. does not eat a whole lot. Ordered: Current tobacco non-user 1036F Depression Screening Negative 3352F Influenza immunization status assessed 1030F Most recent diastolic blood pressure 80-89 mm Hg 3079F Patient screen for fall risk: no falls in last year or 1 fall with no injury in last year 1101F Systolic BP <130 mm Hg (Most Recent) 3074F Follow-up No qualifying data available Problem List/Past Medical History Ongoing Anxiety CAD (coronary artery disease) Chest congestion Emphysema lung Fluid level behind tympanic membrane of both ears Insomnia Lung cancer Mass of tongue Pharyngitis Rash Sinusitis Historical No qualifying data Procedure/Surgical History CABG (Coronary artery bypass grafting) planned, Lobectomy of lung. Medications alprazolam 0.5 mg Tab, 0.5 mg= 1 tab(s), Oral, TID, PRN atorvastatin [...] days ago, quit 2022 Tobacco Use:. Cigarettes, Stopped age 68 Years. Household tobacco concerns: No., 03/01/2024 Family History Primary malignant neoplasm of lung: Father. Immunizations Vaccine Date Status SARS-CoV-2 (COVID-19) mRNA-1273 vaccine 07/17/2021 Recorded SARS-CoV-2 (COVID-19) mRNA-1273 vaccine 06/19/2021 Recorded SARS-CoV-2 (COVID-19) mRNA-1273 vaccine 12/13/2020 Recorded SARS-CoV-2 (COVID-19) mRNA-1273 vaccine 11/15/2020 Recorded Normal [facility] Comment on above: Result Comment: Elec tronically Signed By: Enrique Austin\.miladys\Date and Time Signed: 03/01/24 11:20 EDT CNPNon 02-24-2024 CNPN Normal [facility] CNPNon 02-20-2024 CNPN Normal [facility] CNPNon 02-18-2024 CNPN Normal [facility] CNPNon 02-16-2024 CNPN Normal [facility] CNPNon 02-10-2024 CNPN Normal [facility] XR chest 2V*on 02-08-2024 XR chest 2V* [facility] [place] [address] [place] [address] XRay Report Signed Patient: Cristal Gu MR#: [id number] : 1955 Acct:[id number] Age/Sex: 68 / M ADM Date: 02/07/24 Loc: ER Room: Type: [facility] ER Attending Dr: Copies to: John Dominguez MD Ordering Provider: John Dominguez MD Date of Service: 02/07/24 XR/XR [...] Buzz Barroso M.D.02/08/2024 9:12 AM Dictation Location: [place] [address] Transcribed By: [facility] 02/08/24911 Dictated By: Buzz Barroso DO 02/08/24909 Signed By: 02/08/24911 Normal [facility] Alanine aminotransferase [En zymatic activity/volume] in Serum or PlasmaOrdered By: John Dominguez on 02-07-2024 ALT [Catalytic activity/Vol] 10 U/L Normal 7-52 [facility] Comment on above: Performed By: #### B SALESFORCE TRAINER, CMP, CK, HS TROP, SCAN CBC ####[address] Albumin [Mass/volume] in Ser um or Plasma by Bromocresol green (BCG) dye binding methoOrdered By: John Dominguez on 02-07-2024 Albumin BCG dye [Mass/Vol] 3.6 g/dL 3.5-5.7 [facility] Alkaline phosphatase [Enzyma tic activity/volume] in Serum or PlasmaOrdered By: John Dominguez on 02-07-2024 ALP [Catalytic activity/Vol] 38 U/L Normal 34-104 [facility] Comment on above: Performed By: #### B SALES[employer] TRAINER, CMP, CK, HS TROP, SCAN CBC ####[address] Aspartate aminotransferase [ Enzymatic activity/volume] in Serum or PlasmaOrdered By: John Dominguez on 02-07-2024 AST [Catalytic activity/Vol] 20 U/L Normal 13-39 [facility] Comment on above: Performed By: #### B SALES[employer] TRAINER, CMP, CK, HS TROP, SCAN CBC ####[address] Automated basophil %Ordered By: John Dominguez on 02-07-2024 Basophils/100 WBC (Bld) 0.7 % Normal . [facility] Comment on above: Performed By: #### B SAL[employer] TRAINER, CMP, CK, HS TROP, SCAN CBC ####[address] Automated basophil countOrde red By: John Dominguez on 02-07-2024 Basophils (Bld) [#/Vol] 0.0 10*3/uL Normal 0.0-0.2 [facility] Comment on above: Performed By: #### B SAL[employer] TRAINER, CMP, CK, HS TROP, SCAN CBC ####[address] Automated blood monocyte cou ntOrdered By: John Dominguez on 02-07-2024 Monocytes (Bld) [#/Vol] 0.4 10*3/uL Normal 0.0-0.8 [facility] Comment on above: Performed By: #### B SALES[employer] TRAINER, CMP, CK, HS TROP, SCAN CBC ####[place] [id number] [address] Automated eosinophil %Ordere d By: John Dominguez on 02-07-2024 Eosinophils/100 WBC (Bld) 0.1 % Normal . [facility] Comment on above: Performed By: #### B SAL[employer] TRAINER, CMP, CK, HS TROP, SCAN CBC ####[place] [id number] [address] Automated eosinophil countOr dered By: John Dominguez on 02-07-2024 Eosinophils (Bld) [#/Vol] 0.0 10*3/uL Normal 0.0-0.45 [facility] Comment on above: Performed By: #### B [employer] TRAINER, CMP, CK, HS TROP, SCAN CBC ####[address] Automated monocyte %Ordered By: John Dominguez on 02-07-2024 Monocytes/100 WBC (Bld) 9.5 % Normal . [facility] Comment on above: Performed By: #### B SALESFORCE TRAINER, CMP, CK, HS TROP, SCAN CBC ####[place] [id number] [address] Automated neutrophil %Ordere d By: John Dominguez on 02-07-2024 Neutrophils/100 WBC (Bld) 75.4 % Normal . [facility] Comment on above: Performed By: #### B SALESFORCE TRAINER, CMP, CK, HS TROP, SCAN CBC ####[place] [id number] [facility] BNP ser/plasOrdered By: John Dominguez on 02-07-2024 Natriuretic peptide B (Bld) [Mass/Vol] 123.0 pg/mL High 5-100 [facility] Comment on above: Result Comment: PERF ORMED BY: [facility] [address] [place] [address] PATHOLOGIST ALMOND PASTE MOLDER ALEX CROWLEY M.D. Performed By: #### B SALESFORCE TRAINER, CMP, CK, HS TROP, SCAN CBC ####[place] [id number] [facility] Bilirubin.total [Mass/volume ] in Serum or PlasmaOrdered By: John Dominguez on 02-07-2024 Bilirubin [Mass/Vol] 0.7 mg/dL Normal 0.3-1.0 [facility] Comment on above: Performed By: #### B SALESFORCE TRAINER, CMP, CK, HS TROP, SCAN CBC ####[place] [id number] [facility] Calcium [Mass/volume] in Ser um or PlasmaOrdered By: John Doimnguez on 02-07-2024 Calcium [Mass/Vol] 9.4 mg/dL Normal 8.6-10.3 [facility] Comment on above: Performed By: #### B SALESFORCE TRAINER, CMP, CK, HS TROP, SCAN CBC ####[place] [id number] [facility] Carbon dioxide, total [Moles /volume] in Serum or PlasmaOrdered By: John Dominguez on 02-07-2024 CO2 [Moles/Vol] 23.7 mmol/L Normal 21.0-31.0 [facility] Comment on above: Performed By: #### B SALESFORCE TRAINER, CMP, CK, HS TROP, SCAN CBC ####[place] [id number] [facility] Chloride [Moles/volume] in S juanpablo or PlasmaOrdered By: John Dominguez on 02-07-2024 Chloride [Moles/Vol] 100 mmol/L Normal 98-107 [facility] Comment on above: Performed By: #### B SALESFORCE TRAINER, CMP, CK, HS TROP, SCAN CBC ####[place] [id number] [facility] Comprehensive Metabolic Pane tim 02-07-2024 Albumin [Mass/Vol] 3.6 g/dL Normal 3.5-5.7 [facility] Comment on above: Performed By: #### B SALESFORCE TRAINER, CMP, CK, HS TROP, SCAN CBC ####[address] [place] [address] [facility] Creatinine Clr Calc Pharmacy 47.99 Normal [facility] Comment on above: Result Comment: PERF ORMED BY: [place] [id number] PATHOLOGIST ALMOND PASTE MOLDER ALEX CROWLEY M.D. Performed By: #### B SALESFORCE TRAINER, CMP, CK, HS TROP, SCAN CBC ####[place] [id number] [facility] GFR/1.73 sq M.predicted MDRD (S/P/Bld) [Vol rate/Area] mL/min/{1.73_m2} Normal [facility] Comment on above: Performed By: #### B SALESFORCE TRAINER, CMP, CK, HS TROP, SCAN CBC ####[place] [id number] [facility] Creatine kinase [Enzymatic a ctivity/volume] in Serum or PlasmaOrdered By: John Dominguez on 02-07-2024 CK [Catalytic activity/Vol] 54 U/L Normal 30-223 [facility] Comment on above: Performed By: #### B SALESFORCE TRAINER, CMP, CK, HS TROP, SCAN CBC ####[place] [id number] [facility] Creatinine [Mass/volume] in Serum or PlasmaOrdered By: John Dominguez on 02-07-2024 Creatinine [Mass/Vol] 1.12 mg/dL Normal 0.70-1.30 [facility] Comment on above: Performed By: #### B SALESFORCE TRAINER, CMP, CK, HS TROP, SCAN CBC ####[place] [id number] [facility] ECG 12 lead ECGon 02-07-2024 ECG 12 lead ECG [facility] [address] [place] [address] [place] [id number] Electrocardiograph Report Signed Patient: Cristal Gu MR#: [id number] : 1955 Acct:[id number] Age/Sex: 68 / M ADM Date: 02/07/24 Loc: ER Room: Type: [facility] ER Attending Dr: Ordering Provider: John Dominguez MD Date of Service: 02/07/24 ECG/ECG [...] complexes are no longer present Confirmed by JOHN DOMINGUEZ MD ([id number]) on 02/08/2024 12:20:22 AM Referred By: Electronically Signed By: JOHN DOMINGUEZ MD Transcribed By: MUS Signed By John Dominguez MD 02/08/24 0020 Normal [facility] Erythrocyte distribution wid th [Ratio] by Automated countOrdered By: John Dominguez on 02-07-2024 Erythrocyte distribution width (RBC) [Ratio] 14.9 % High 12.0-14.8 [facility] Comment on above: Performed By: #### B SALESFORCE TRAINER, CMP, CK, HS TROP, SCAN CBC ####[facility] [id number] [place] [id number] [facility] Erythrocytes [#/volume] in B lood by Automated countOrdered By: John Dominguez on 02-07-2024 RBC (Bld) [#/Vol] 3.76 10*6/uL Low 3.90-5.60 [facility] Comment on above: Performed By: #### B SALESFORCE TRAINER, CMP, CK, HS TROP, SCAN CBC ####[facility] [id number] [place] [id number] [facility] Glucose [Mass/volume] in Ser um or PlasmaOrdered By: John Dominguez on 02-07-2024 Glucose [Mass/Vol] 168 mg/dL High 70-100 [facility] Comment on above: ADA recommended refe rence rangeRandom Glucose Reference Range is dependent on time and content of last meal. Glucose of more than 200 mg/dL in a nonstressed, ambulatory subject supports the diagnosis of Diabetes Mellitus. Result Comment: [place] om Glucose Reference Range is dependent on time and content of last meal. Glucose of more than 200 mg/dL in a nonstressed, ambulatory subject supports the diagnosis of Diabetes Mellitus. ADA recommended reference range Performed By: #### B SALESFORCE TRAINER, CMP, CK, HS TROP, SCAN CBC ####[place] [id number] [address] Hematocrit [Volume Fraction] of Blood by Automated countOrdered By: John Dominguez on 02-07-2024 Hematocrit (Bld) [Volume fraction] 35.7 % Low 38.8-50.0 [facility] Comment on above: Performed By: #### B SALESFORCE TRAINER, CMP, CK, HS TROP, SCAN CBC ####[place] [id number] Hemoglobin [Mass/volume] in BloodOrdered By: John Dominguez on 02-07-2024 Hemoglobin (Bld) [Mass/Vol] 12.1 g/dL Low 13.0-17.0 [facility] Comment on above: Performed By: #### B SALESFORCE TRAINER, CMP, CK, HS TROP, SCAN CBC ####[address] Leukocytes [#/volume] correc nani for nucleated erythrocytes in Blood by Automated counOrdered By: John Dominguez on 02-07-2024 WBC corrected for nucl RBC Auto (Bld) [#/Vol] 4.0 10*3/uL Low 4.1-10.5 [facility] Leukocytes [#/volume] in Blo od by Automated countOrdered By: John Dominguez on 02-07-2024 WBC (Bld) [#/Vol] 4.0 10*3/uL Low 4.1-10.5 [facility] Comment on above: Performed By: #### B SALESFORCE TRAINER, CMP, CK, HS TROP, SCAN CBC ####[address] Lymphocytes [#/volume] in Bl ood by Automated countOrdered By: John Dominguez on 02-07-2024 Lymphocytes (Bld) [#/Vol] 0.6 10*3/uL Low 1.00-4.8 [facility] Comment on above: Performed By: #### B SALESFORCE TRAINER, CMP, CK, HS TROP, SCAN CBC ####[place] [id number] Lymphocytes/100 leukocytes i n Blood by Automated countOrdered By: John Dominguez on 02-07-2024 Lymphocytes/100 WBC (Bld) 14.3 % Normal . [facility] Comment on above: Performed By: #### B SALESFORCE TRAINER, CMP, CK, HS TROP, SCAN CBC ####[address] MCH [Entitic mass] by Automa nani countOrdered By: John Dominguez on 02-07-2024 MCH (RBC) [Entitic mass] 32.1 pg Normal 27.5-35.2 [facility] Comment on above: Performed By: #### B SALESFORCE TRAINER, CMP, CK, HS TROP, SCAN CBC ####[place] [phone] MCHC Auto (RBC) [Mass/Vol]Or dered By: John Dominguez on 02-07-2024 MCHC (RBC) [Mass/Vol] 33.8 g/dL 32.5-35.6 [facility] MCV [Entitic volume] by Auto mated countOrdered By: John Dominguez on 02-07-2024 MCV (RBC) [Entitic vol] 94.9 fL Normal 83.5-101 [facility] Comment on above: Performed By: #### B SALESFORCE TRAINER, CMP, CK, HS TROP, SCAN CBC ####[address] Monocyte distribution width [Entitic volume] in Blood by AutomatedOrdered By: John Dominguez on 02-07-2024 Monocyte distribution width Auto (Bld) [Entitic vol] 19.12 % 0.00-20.00 [facility] Neutrophils [#/volume] in Bl ood by Automated countOrdered By: John Dominguez on 02-07-2024 Neutrophils (Bld) [#/Vol] 3.0 10*3/uL Normal 1.8-7.7 [facility] Comment on above: Performed By: #### B SALESFORCE TRAINER, CMP, CK, HS TROP, SCAN CBC ####[address] No Panel InformationOrdered By: John Dominguez on 02-07-2024 Estimated GFR (CKD-EPI) > 60.0 mL/Min [facility] Creatinine Clearance (Chem 47.99 [facility] Nucleated erythrocytes [Pres ence] in Blood by Automated countOrdered By: John Dominguez on 02-07-2024 Nucleated RBC Auto Ql (Bld) 0.1 /100{WBC} 0-0.5 [facility] Platelet adequacy [Presence] in Blood by Light microscopyOrdered By: John Dominguez on 02-07-2024 Platelets LM Ql (Bld) Normal Normal [facility] Platelet mean volume [Entiti c volume] in Blood by Automated countOrdered By: John Dominguez on 02-07-2024 Platelet mean volume (Bld) [Entitic vol] 10.5 fL High 6.6-10.1 [facility] Comment on above: Performed By: #### B SALESFORCE TRAINER, CMP, CK, HS TROP, SCAN CBC ####[facility] [id number] Platelet morphology finding [Identifier] in BloodOrdered By: John Dominguez on 02-07-2024 Platelet morphology finding Nom (Bld) Normal Normal [facility] Platelets Large [Presence] i n Blood by Light microscopyOrdered By: John Dominguez on 02-07-2024 Platelets Large LM Ql (Bld) Slight [facility] Platelets [#/volume] in Bloo d by Automated countOrdered By: John Dominguez on 02-07-2024 Platelets (Bld) [#/Vol] 187 10*3/uL Normal 150-450 [facility] Comment on above: Performed By: #### B SALESFORCE TRAINER, CMP, CK, HS TROP, SCAN CBC ####[facility] [id number] Polychromasia [Presence] in Blood by Light microscopyOrdered By: John Dominguez on 02-07-2024 Polychromasia LM Ql (Bld) Slight [facility] Potassium [Moles/volume] in Serum or PlasmaOrdered By: John Dominguez on 02-07-2024 Potassium [Moles/Vol] 3.8 mmol/L Normal 3.5-5.1 [facility] Comment on above: Performed By: #### B SALESFORCE TRAINER, CMP, CK, HS TROP, SCAN CBC ####[address] Protein [Mass/volume] in Ser um or PlasmaOrdered By: John Dominguez on 02-07-2024 Protein [Mass/Vol] 6.9 g/dL Normal 6.4-8.9 [facility] Comment on above: Performed By: #### B SALESFORCE TRAINER, CMP, CK, HS TROP, SCAN CBC ####[place] [phone] [facility] RBC morphologyOrdered By: Karmen Dominguez on 02-07-2024 RBC morphology finding Nom (Bld) Normal Normal Normal [facility] Comment on above: Performed By: #### B SALESFORCE TRAINER, CMP, CK, HS TROP, SCAN CBC ####[address] Scan and CBCon 02-07-2024 Large Platelets Slight Normal [facility] Comment on above: Result Comment: PERF ORMED BY: [facility] [address] [place] [address] PATHOLOGIST ALMOND PASTE MOLDER ALEX CROWLEY M.D. Performed By: #### B SALESFORCE TRAINER, CMP, CK, HS TROP, SCAN CBC ####[address] Mean Corpuscular HGB Conc 33.8 g/dL Normal 32.5-35.6 [facility] Comment on above: Performed By: #### B SALESFORCE TRAINER, CMP, CK, HS TROP, SCAN CBC ####[place] [phone] [facility] Monocytes/100 WBC (Bld) 19.12 % Normal 0.00-20.00 [facility] Comment on above: Performed By: #### B SALESFORCE TRAINER, CMP, CK, HS TROP, SCAN CBC ####[address] NRBC% 0.1 /100{WBC} Normal 0-0.5 [facility] Comment on above: Performed By: #### B SALESFORCE TRAINER, CMP, CK, HS TROP, SCAN CBC ####[address] Platelet Estimate Normal Normal Normal [facility] Comment on above: Performed By: #### B SALESFORCE TRAINER, CMP, CK, HS TROP, SCAN CBC ####[address] Platelet Morphology Normal Normal Normal [facility] Comment on above: Performed By: #### B SALESFORCE TRAINER, CMP, CK, HS TROP, SCAN CBC ####[address] Polychromasia Slight Normal [facility] Comment on above: Performed By: #### B SALESFORCE TRAINER, CMP, CK, HS TROP, SCAN CBC ####[address] Serum globulin measurement b y calculation (mass/volume)Ordered By: John Dominguez on 02-07-2024 Globulin (S) [Mass/Vol] 3.3 g/dL Normal [facility] Comment on above: Performed By: #### B SALESFORCE TRAINER, CMP, CK, HS TROP, SCAN CBC ####[address] Serum or plasma albumin/glob ulin mass ratioOrdered By: John Dominguez on 02-07-2024 Albumin/Globulin [Mass ratio] 1.1 {ratio} Normal [facility] Comment on above: Performed By: #### B SALESFORCE TRAINER, CMP, CK, HS TROP, SCAN CBC ####[address] Serum or plasma anion gap de terminationOrdered By: John Dominguez on 02-07-2024 Anion gap [Moles/Vol] 13.1 mmol/L Normal 6.0-15.0 [facility] Comment on above: Performed By: #### B SALESFORCE TRAINER, CMP, CK, HS TROP, SCAN CBC ####[address] Sodium [Moles/volume] in Ser um or PlasmaOrdered By: John Dominguez on 02-07-2024 Sodium [Moles/Vol] 133 mmol/L Low 136-145 [facility] Comment on above: Performed By: #### B SALESFORCE TRAINER, CMP, CK, HS TROP, SCAN CBC ####[facility] [place] [id number] [facility] Troponin I High Sensitivityo n 02-07-2024 Troponin I High Sensitivity 10.1 pg/mL Normal 0.0-20.0 [facility] Comment on above: Result Comment: PERF ORMED BY: [facility] [address] [place] [place] [id number] PATHOLOGIST ALMOND PASTE MOLDER ALEX CROWLEY M.D. Performed By: #### B SALESFORCE TRAINER, CMP, CK, HS TROP, SCAN CBC ####[place] [id number] [place] [id number] [facility] Troponin I.cardiac [Mass/vol ume] in Serum or Plasma by Detection limit <= 0.01 ng/Ordered By: John Dominguez on 02-07-2024 Troponin I.cardiac DL <= 0.01 ng/mL [Mass/Vol] 10.1 pg/mL 0.0-20.0 [facility] Urea nitrogen [Mass/volume] in Serum or PlasmaOrdered By: John Dominguez on 02-07-2024 Urea nitrogen [Mass/Vol] 17 mg/dL Normal 7-25 [facility] Comment on above: Performed By: #### B SALESFORCE TRAINER, CMP, CK, HS TROP, SCAN CBC ####[place] [id number] [place] [id number] [facility] Family Medicine Office/Clini c Noteon 02-06-2024 Family Medicine Office/Clinic Note Family Medicine Office/Clinic Note HPI Staff Cristal is a 68 year old presenting with [...] day(s), # 14 tab(s), Refills(s) 0, Pharmacy: [facility], 169.5, cm, 02/06/24 12:01:00 EDT, Height/Length Dosing, 52.9, kg, 02/06/24 12:01:00 EDT, Weight Dosing methylPREDNISolone, = 1 packet(s), Oral, As Directed, as directed on package labeling, X 6 day(s), # 21 tab(s), Refills(s) 0, Pharmacy: [facility], 169.5, cm, 02/06/24 12:01:00 EDT, Height/Length Dosing, 52.9, kg, 02/06/24 12:01:00 EDT, Weight Dosing 2. Former smoker (Z87.891: Personal history of nicotine dependence) continue not smoking Ordered: amoxicillin, 875 mg = 1 tab(s), Oral, BID, X 7 day(s), # 14 tab(s), Refills(s) 0, Pharmacy: [facility], 169.5, cm, 02/06/24 12:01:00 EDT, Height/Length Dosing, 52.9, kg, 02/06/24 12:01:00 EDT, Weight Dosing methylPREDNISolone, = 1 packet(s), Oral, As Directed, as directed on package labeling, X 6 day(s), # 21 tab(s), Refills(s) 0, Pharmacy: [facility], 169.5, cm, 02/06/24 12:01:00 EDT, Height/Length Dosing, 52.9, kg, 02/06/24 12:01:00 EDT, Weight Dosing 3. BMI less than 19,adult (Z68.1: Body mass index [BMI] 19.9 or less, adult) BMI education given Ordered: amoxicillin, 875 mg = 1 tab(s), Oral, BID, X 7 day(s), # 14 tab(s), Refills(s) 0, Pharmacy: [facility], 169.5, cm, 02/06/24 12:01:00 EDT, Height/Length Dosing, 52.9, kg, 02/06/24 12:01:00 EDT, Weight Dosing methylPREDNISolone, = 1 packet(s), Oral, As Directed, as directed on package labeling, X 6 day(s), # 21 tab(s), Refills(s) 0, Pharmacy: [facility], 169.5, cm, 02/06/24 12:01:00 EDT, Height/Length Dosing, 52.9, kg, 02/06/24 12:01:00 EDT, Weight Dosing Orders: triamcinolone topical, 1 duong, Topical, BID, 20 gram, Refill(s) 1, [facility], 169.5, cm, 10/15/23 11:53:00 EDT, Height/Length [...] (COVID-19) mRN (more content not included)... Normal [facility] Comment on above: Result Comment: Elec tronically Signed By: Enrique Austin\.br\Date and Time Signed: 02/06/24 12:32 EDT CBC W Auto Differential pane l (Bld)on 02-03-2024 Basophils (Bld) [#/Vol] 10*3/uL Normal <0.11 [facility] Comment on above: Order Comment: Speci men Type: BLOOD SPECIMENOrdering Facility: [facility] Address: [address] [place] [address] Performed By: #### 5 7021-8 ####[facility] LABCLIA [id number] [place] [address] Basophils/100 WBC (Bld) 0.3 % Normal [facility] Comment on above: Order Comment: Speci men Type: BLOOD SPECIMENOrdering Facility: [facility] Address: [address] [place] [address] Performed By: #### 5 7021-8 ####[facility] LABCL[facility] [id number] [place] [address] Differential cell count method Nom (Bld) Auto Normal [facility] Comment on above: Order Comment: Speci men Type: BLOOD SPECIMENOrdering Facility: [facility] Address: [address] [place] [address] Performed By: #### 5 7021-8 ####[facility] LABCLIA [id number] [place] [address] Eosinophils (Bld) [#/Vol] 0.10 10*3/uL Normal <0.46 [facility] Comment on above: Order Comment: Speci men Type: BLOOD SPECIMENOrdering Facility: [facility] Address: [address] [place] [address] Performed By: #### 5 7021-8 ####[facility] LABCLIA [id number] [place] [address] Eosinophils/100 WBC (Bld) 1.7 % Normal [facility] Comment on above: Order Comment: Speci men Type: BLOOD SPECIMENOrdering Facility: [facility] Address: [address] [place] [address] Performed By: #### 5 7021-8 ####[facility] LABCLIA [id number] [place] [address] Erythrocyte distribution width (RBC) [Ratio] 13.7 % Normal 11.5-15.0 [facility] Comment on above: Order Comment: Speci men Type: BLOOD SPECIMENOrdering Facility: [facility] Address: [address] [place] [address] Performed By: #### 5 7021-8 ####[facility] LABCLIA [id number] [place] [address] Hematocrit (Bld) [Volume fraction] 38.1 % Low 39.0-51.0 [facility] Comment on above: Order Comment: Speci men Type: BLOOD SPECIMENOrdering Facility: [facility] Address: [address] [place] [address] Performed By: #### 5 7021-8 ####[facility] LABCLIA [id number] [place] [address] Hemoglobin (Bld) [Mass/Vol] 12.7 g/dL Low 13.0-17.0 [facility] Comment on above: Order Comment: Speci men Type: BLOOD SPECIMENOrdering Facility: [facility] Address: [address] [place] [address] Performed By: #### 5 7021-8 ####[facility] LABCLIA [id number] [place] [address] Immature granulocytes (Bld) [#/Vol] 0.04 10*3/uL Normal <0.10 [facility] Comment on above: Order Comment: Speci men Type: BLOOD SPECIMENOrdering Facility: [facility] Address: [address] [place] [address] Performed By: #### 5 7021-8 ####[facility] LABCLIA [id number] [place] [address] Immature granulocytes/100 WBC (Bld) 0.7 % Normal [facility] Comment on above: Order Comment: Speci men Type: BLOOD SPECIMENOrdering Facility: [facility] Address: [address] [place] [address] Performed By: #### 5 7021-8 ####[facility] LABCLIA [id number] [place] [address] Lymphocytes (Bld) [#/Vol] 1.05 10*3/uL Normal 1.00-4.00 [facility] Comment on above: Order Comment: Speci men Type: BLOOD SPECIMENOrdering Facility: [facility] Address: [address] [place] [address] Performed By: #### 5 7021-8 ####[facility] LABCLIA [id number] [place] [address] Lymphocytes/100 WBC (Bld) 17.6 % Normal [facility] Comment on above: Order Comment: Speci men Type: BLOOD SPECIMENOrdering Facility: [facility] Address: [address] [place] [address] Performed By: #### 5 7021-8 ####[facility] LABCLIA [id number] [place] [address] MCH (RBC) [Entitic mass] 31.7 pg Normal 26.0-34.0 [facility] Comment on above: Order Comment: Speci men Type: BLOOD SPECIMENOrdering Facility: [facility] Address: [address] [place] [address] Performed By: #### 5 7021-8 ####[facility] LABCLIA [id number] [place] [address] MCHC (RBC) [Mass/Vol] 33.3 g/dL Normal 30.5-36.0 [facility] Comment on above: Order Comment: Speci men Type: BLOOD SPECIMENOrdering Facility: [facility] Address: [address] [place] [address] Performed By: #### 5 7021-8 ####[facility] LABCLIA [id number] [place] [address] MCV (RBC) [Entitic vol] 95.0 fL Normal 80.0-100.0 [facility] Comment on above: Order Comment: Speci men Type: BLOOD SPECIMENOrdering Facility: [facility] Address: [address] [place] [address] Performed By: #### 5 7021-8 ####[facility] LABCLIA [id number] [place] [address] Monocytes (Bld) [#/Vol] 1.00 10*3/uL High <0.87 [facility] Comment on above: Order Comment: Speci men Type: BLOOD SPECIMENOrdering Facility: [facility] Address: [address] [place] [address] Performed By: #### 5 7021-8 ####[facility] LABCLIA [id number] [place] [address] Monocytes/100 WBC (Bld) 16.8 % Normal [facility] Comment on above: Order Comment: Speci men Type: BLOOD SPECIMENOrdering Facility: [facility] Address: [address] [place] [address] Performed By: #### 5 7021-8 ####[facility] LABCLIA [id number] [place] [address] Neutrophils (Bld) [#/Vol] 3.75 10*3/uL Normal 1.45-7.50 [facility] Comment on above: Order Comment: Speci men Type: BLOOD SPECIMENOrdering Facility: [facility] Address: [address] [place] [address] Performed By: #### 5 7021-8 ####[facility] LABCLIA [id number] [place] [address] Neutrophils/100 WBC (Bld) 62.9 % Normal [facility] Comment on above: Order Comment: Speci men Type: BLOOD SPECIMENOrdering Facility: [facility] Address: [address] [place] [address] Performed By: #### 5 7021-8 ####[facility] LABCLIA [id number] [place] [address] Nucleated RBC (Bld) [#/Vol] 10*3/uL Normal <0.01 [facility] Comment on above: Order Comment: Speci men Type: BLOOD SPECIMENOrdering Facility: [facility] Address: [address] [place] [address] Performed By: #### 5 7021-8 ####[facility] LABCLIA [id number] [place] [address] Nucleated RBC/100 WBC (Bld) [Ratio] 0.0 /100 WBC Normal [facility] Comment on above: Order Comment: Speci men Type: BLOOD SPECIMENOrdering Facility: [facility] Address: [address] [place] [address] Performed By: #### 5 7021-8 ####[facility] LABCLIA [id number] [place] [address] Platelet mean volume (Bld) [Entitic vol] 11.5 fL Normal 9.0-12.7 [facility] Comment on above: Order Comment: Speci men Type: BLOOD SPECIMENOrdering Facility: [facility] Address: [address] [place] [address] Performed By: #### 5 7021-8 ####[facility] LABCLIA [id number] [place] [address] Platelets (Bld) [#/Vol] 201 10*3/uL Normal 150-400 [facility] Comment on above: Order Comment: Speci men Type: BLOOD SPECIMENOrdering Facility: [facility] Address: [address] [place] [address] Performed By: #### 5 7021-8 ####[facility] LABCLIA [id number] [place] [address] RBC (Bld) [#/Vol] 4.01 10*6/uL Low 4.20-6.00 [facility] Comment on above: Order Comment: Speci men Type: BLOOD SPECIMENOrdering Facility: [facility] Address: [address] [place] [address] Performed By: #### 5 7021-8 ####[facility] LABCLIA [id number] [place] [address] WBC (Bld) [#/Vol] 5.96 10*3/uL Normal 3.70-11.00 [facility] Comment on above: Order Comment: Speci men Type: BLOOD SPECIMENOrdering Facility: [facility] Address: [address] [place] [address] Performed By: #### 5 7021-8 ####[facility] LABCLIA [id number] [place] [address] CNOVSPon 02-03-2024 CNOVSP Normal [facility] CNPNon 02-03-2024 CNPN Normal [facility] Comprehensive metabolic 2000 panelon 02-03-2024 Albumin [Mass/Vol] 3.8 g/dL Low 3.9-4.9 [facility] Comment on above: Order Comment: Speci men Type: BLOOD SPECIMENOrdering Facility: [facility] Address: [address] [place] [address] Performed By: #### 2 4323-8 ####[facility] LABCLIA [id number] [place] [address] ALP [Catalytic activity/Vol] 47 U/L Normal 38-113 [facility] Comment on above: Order Comment: Speci men Type: BLOOD SPECIMENOrdering Facility: [facility] Address: [address] [place] [address] Performed By: #### 2 4323-8 ####[facility] LABCLIA [id number] [place] [address] ALT [Catalytic activity/Vol] 12 U/L Normal 10-54 [facility] Comment on above: Order Comment: Speci men Type: BLOOD SPECIMENOrdering Facility: [facility] Address: [address] [place] [address] Performed By: #### 2 4323-8 ####[facility] LABCLIA [id number] [place] [address] Anion gap [Moles/Vol] 13 mmol/L Normal 8-15 [facility] Comment on above: Order Comment: Speci men Type: BLOOD SPECIMENOrdering Facility: [facility] Address: [address] [place] [address] Performed By: #### 2 4323-8 ####[facility] LABCLIA [id number] [place] [address] AST [Catalytic activity/Vol] 22 U/L Normal 14-40 [facility] Comment on above: Order Comment: Speci men Type: BLOOD SPECIMENOrdering Facility: [facility] Address: [address] [place] [address] Performed By: #### 2 4323-8 ####[facility] LABCLIA [id number] [place] [address] Bilirubin [Mass/Vol] 0.8 mg/dL Normal 0.2-1.3 [facility] Comment on above: Order Comment: Speci men Type: BLOOD SPECIMENOrdering Facility: [facility] Address: [address] [place] [address] Performed By: #### 2 4323-8 ####[facility] LABCLIA [id number] [place] [address] Calcium [Mass/Vol] 10.5 mg/dL High 8.5-10.2 [facility] Comment on above: Order Comment: Speci men Type: BLOOD SPECIMENOrdering Facility: [facility] Address: [address] [place] [address] Performed By: #### 2 4323-8 ####[facility] LABCLIA [id number] [place] [address] Chloride [Moles/Vol] 101 mmol/L Normal 98-107 [facility] Comment on above: Order Comment: Speci men Type: BLOOD SPECIMENOrdering Facility: [facility] Address: [address] [place] [address] Performed By: #### 2 4323-8 ####[facility] LABCLIA [id number] [place] [address] CO2 [Moles/Vol] 24 mmol/L Normal 22-30 [facility] Comment on above: Order Comment: Speci men Type: BLOOD SPECIMENOrdering Facility: [facility] Address: [address] [place] [address] Performed By: #### 2 4323-8 ####[facility] LABCLIA [id number] [place] [address] Creatinine [Mass/Vol] 1.35 mg/dL High 0.73-1.22 [facility] Comment on above: Order Comment: Speci men Type: BLOOD SPECIMENOrdering Facility: [facility] Address: [address] [place] [address] Performed By: #### 2 4323-8 ####[facility] LABCLIA [id number] [place] [address] Creatinine and Glomerular filtration rate.predicted panel (S/P/Bld) 58 mL/min/1.73m??? Low >=60 [facility] Comment on above: Order Comment: Speci men Type: BLOOD SPECIMENOrdering Facility: [facility] Address: [address] [place] [address] Result Comment: Landy mated Glomerular Filtration Rate [...] actual GFR. Performed By: #### 2 4323-8 ####[facility] LABCLIA [id number] [place] [address] Glucose [Mass/Vol] 98 mg/dL Normal 74-99 [facility] Comment on above: Order Comment: Speci men Type: BLOOD SPECIMENOrdering Facility: [facility] Address: [address] [place], [place] [address] Result Comment: The [place] Diabetes Association (ADA) provides guidance for cutoff [...] Standards of Medical Care in Diabetes 2016, [place] [employer]. Diabetes Care. 2016.39(Suppl 1). Performed By: #### 2 4323-8 ####[facility] LABCLIA [id number] [place] [address] Potassium [Moles/Vol] 4.7 mmol/L Normal 3.7-5.1 [facility] Comment on above: Order Comment: Speci men Type: BLOOD SPECIMENOrdering Facility: [facility] Address: [address] [place] [address] Performed By: #### 2 4323-8 ####[facility] LABCLIA [id number] [place] [address] Protein [Mass/Vol] 7.2 g/dL Normal 6.3-8.0 [facility] Comment on above: Order Comment: Speci men Type: BLOOD SPECIMENOrdering Facility: [facility] Address: [address] [place] [address] Performed By: #### 2 4323-8 ####[facility] LABCLIA [id number] [place] [address] Sodium [Moles/Vol] 138 mmol/L Normal 136-144 [facility] Comment on above: Order Comment: Speci men Type: BLOOD SPECIMENOrdering Facility: [facility] Address: [address] [place] [address] Performed By: #### 2 4323-8 ####[facility] LABCLIA [id number] [place] [address] Urea nitrogen [Mass/Vol] 15 mg/dL Normal 9-24 [facility] Comment on above: Order Comment: Speci men Type: BLOOD SPECIMENOrdering Facility: [facility] Address: [address] [place] [address] Performed By: #### 2 4323-8 ####[facility] LABCLIA [id number] [place] [address] CNPNon 01-27-2024 CNPN Normal [facility] CNPNon 01-13-2024 CNPN Normal [facility] Family Medicine Office/Clini c Noteon 01-12-2024 Family Medicine Office/Clinic Note HPI Staff Cristal is a 68 year old male presenting [...] anxiety, # 90 tab(s), Refills(s) 0, Pharmacy: [facility], 169.5, cm, 01/12/24 12:03:00 EDT, Height/Length Dosing, 54.7, kg, 01/12/24 12:03:00 EDT, Weight Dosing alprazolam, 0.25 mg = 1 tab(s), Oral, TID, PRN for anxiety, # 90 tab(s), Refills(s) 0, Pharmacy: [facility], 169.5, cm, 10/08/23 9:02:00 EDT, Height/Length [...] Oral, TID triamcinolone Top 0.5% Crm, 1 duong, Topical, BID, 1 refills Allergies No Known [...] (COVID-19) mRNA-1273 vaccine 11/15/[address] [facility] Comment on above: Result Comment: Elec tronically Signed By: Cate MENARD, Enrique Beatty\.br\Date and Time Signed: 01/12/24 12:31 EDT CNPNon 01-09-2024 CNPN Normal [facility] CNPNon 12-26-2023 CNPN Normal [facility] CBC W Auto Differential pane l (Bld)on 12-23-2023 Basophils (Bld) [#/Vol] [facility] Basophils/100 WBC (Bld) 0.1 % [facility] Differential cell count method Nom (Bld) Auto [facility] Eosinophils (Bld) [#/Vol] [facility] Eosinophils/100 WBC (Bld) 0.1 % [facility] Erythrocyte distribution width (RBC) [Ratio] 15.3 % High 11.5 - 15.0 % [facility] Hematocrit (Bld) [Volume fraction] 31.1 % Low 39.0 - 51.0 % [facility] Hemoglobin (Bld) [Mass/Vol] 10.0 g/dL Low 13.0 - 17.0 g/dL [facility] Immature granulocytes (Bld) [#/Vol] 0.07 10*3/uL [facility] Immature granulocytes/100 WBC (Bld) 0.9 % [facility] Interpretation and review of laboratory results Abnormal [facility] Lymphocytes (Bld) [#/Vol] 0.38 10*3/uL Low [facility] Lymphocytes/100 WBC (Bld) 4.6 % [facility] MCH (RBC) [Entitic mass] 31.0 pg 26.0 - 34.0 pg [facility] MCHC (RBC) [Mass/Vol] 32.2 g/dL 30.5 - 36.0 g/dL [facility] MCV (RBC) [Entitic vol] 96.3 fL 80.0 - 100.0 fL [facility] Monocytes (Bld) [#/Vol] 0.34 10*3/uL [facility] Monocytes/100 WBC (Bld) 4.1 % [facility] Neutrophils (Bld) [#/Vol] 7.39 10*3/uL [facility] Neutrophils/100 WBC (Bld) 90.2 % [facility] Nucleated RBC (Bld) [#/Vol] NINF [facility] Nucleated RBC/100 WBC (Bld) [Ratio] 0.0 % /100 WBC [facility] Platelet mean volume (Bld) [Entitic vol] 10.9 fL 9.0 - 12.7 fL [facility] Platelets (Bld) [#/Vol] 141 10*3/uL Low [facility] RBC (Bld) [#/Vol] 3.23 10*6/uL Low 4.20 - 6.00 m/uL [facility] WBC (Bld) [#/Vol] 8.20 10*3/uL [facility] Basophils (Bld) [#/Vol] 10*3/uL Normal <0.11 [facility] Comment on above: Order Comment: Speci men Type: BLOOD SPECIMENOrdering Facility: [facility] Address: [address] [place] [address] Performed By: #### 5 7021-8 ####[facility] LABIA [id number] [place] [address] Basophils/100 WBC (Bld) 0.1 % Normal [facility] Comment on above: Order Comment: Speci men Type: BLOOD SPECIMENOrdering Facility: [facility] Address: [address] [place] [address] Performed By: #### 5 7021-8 ####[facility] LABCLIA [id number] [place] [address] Differential cell count method Nom (Bld) Auto Normal [facility] Comment on above: Order Comment: Speci men Type: BLOOD SPECIMENOrdering Facility: [facility] Address: [address] [place] [address] Performed By: #### 5 7021-8 ####[facility] LABCLIA [id number] [place] [address] Eosinophils (Bld) [#/Vol] 10*3/uL Normal <0.46 [facility] Comment on above: Order Comment: Speci men Type: BLOOD SPECIMENOrdering Facility: [facility] Address: [address] [place] [address] Performed By: #### 5 7021-8 ####[facility] LABCLIA [id number] [place] [address] Eosinophils/100 WBC (Bld) 0.1 % Normal [facility] Comment on above: Order Comment: Speci men Type: BLOOD SPECIMENOrdering Facility: [facility] Address: [address] [place] [address] Performed By: #### 5 7021-8 ####[facility] LABCLIA [id number] [place] [address] Erythrocyte distribution width (RBC) [Ratio] 15.3 % High 11.5-15.0 [facility] Comment on above: Order Comment: Speci men Type: BLOOD SPECIMENOrdering Facility: [facility] Address: [address] [place] [address] Performed By: #### 5 7021-8 ####[facility] LABCLIA [id number] [place] [address] Hematocrit (Bld) [Volume fraction] 31.1 % Low 39.0-51.0 [facility] Comment on above: Order Comment: Speci men Type: BLOOD SPECIMENOrdering Facility: [facility] Address: [address] [place] [address] Performed By: #### 5 7021-8 ####[facility] LABCLIA [id number] [place] [address] Hemoglobin (Bld) [Mass/Vol] 10.0 g/dL Low 13.0-17.0 [facility] Comment on above: Order Comment: Speci men Type: BLOOD SPECIMENOrdering Facility: [facility] Address: [address] [place] [address] Performed By: #### 5 7021-8 ####[facility] LABCLIA [id number] [place] [address] Immature granulocytes (Bld) [#/Vol] 0.07 10*3/uL Normal <0.10 [facility] Comment on above: Order Comment: Speci men Type: BLOOD SPECIMENOrdering Facility: [facility] Address: [address] [place] [address] Performed By: #### 5 7021-8 ####[facility] LABCLIA [id number] [place] [address] Immature granulocytes/100 WBC (Bld) 0.9 % Normal [facility] Comment on above: Order Comment: Speci men Type: BLOOD SPECIMENOrdering Facility: [facility] Address: [address] [place] [address] Performed By: #### 5 7021-8 ####[facility] LABCLIA [id number] [place] [address] Lymphocytes (Bld) [#/Vol] 0.38 10*3/uL Low 1.00-4.00 [facility] Comment on above: Order Comment: Speci men Type: BLOOD SPECIMENOrdering Facility: [facility] Address: [address] [place] [address] Performed By: #### 5 7021-8 ####[facility] LABCLIA [id number] [place] [address] Lymphocytes/100 WBC (Bld) 4.6 % Normal [facility] Comment on above: Order Comment: Speci men Type: BLOOD SPECIMENOrdering Facility: [facility] Address: [address] [place] [address] Performed By: #### 5 7021-8 ####[facility] LABCLIA [id number] [place] [address] MCH (RBC) [Entitic mass] 31.0 pg Normal 26.0-34.0 [facility] Comment on above: Order Comment: Speci men Type: BLOOD SPECIMENOrdering Facility: [facility] Address: [address] [place] [address] Performed By: #### 5 7021-8 ####[facility] LABCLIA [id number] [place] [address] MCHC (RBC) [Mass/Vol] 32.2 g/dL Normal 30.5-36.0 [facility] Comment on above: Order Comment: Speci men Type: BLOOD SPECIMENOrdering Facility: [facility] Address: [address] [place] [address] Performed By: #### 5 7021-8 ####[facility] LABCLIA [id number] [place] [address] MCV (RBC) [Entitic vol] 96.3 fL Normal 80.0-100.0 [facility] Comment on above: Order Comment: Speci men Type: BLOOD SPECIMENOrdering Facility: [facility] Address: [address] [place] [address] Performed By: #### 5 7021-8 ####[facility] LABCLIA [id number] [place] [address] Monocytes (Bld) [#/Vol] 0.34 10*3/uL Normal <0.87 [facility] Comment on above: Order Comment: Speci men Type: BLOOD SPECIMENOrdering Facility: [facility] Address: [address] [place] [address] Performed By: #### 5 7021-8 ####[facility] LABCLIA [id number] [place] [address] Monocytes/100 WBC (Bld) 4.1 % Normal [facility] Comment on above: Order Comment: Speci men Type: BLOOD SPECIMENOrdering Facility: [facility] Address: [address] [place] [address] Performed By: #### 5 7021-8 ####[facility] LABCLIA [id number] [place] [address] Neutrophils (Bld) [#/Vol] 7.39 10*3/uL Normal 1.45-7.50 [facility] Comment on above: Order Comment: Speci men Type: BLOOD SPECIMENOrdering Facility: [facility] Address: [address] [place] [address] Performed By: #### 5 7021-8 ####[facility] LABCLIA [id number] [place] [address] Neutrophils/100 WBC (Bld) 90.2 % Normal [facility] Comment on above: Order Comment: Speci men Type: BLOOD SPECIMENOrdering Facility: [facility] Address: [address] [place] [address] Performed By: #### 5 7021-8 ####[facility] LABCLIA [id number] [place] [address] Nucleated RBC (Bld) [#/Vol] 10*3/uL Normal <0.01 [facility] Comment on above: Order Comment: Speci men Type: BLOOD SPECIMENOrdering Facility: [facility] Address: [address] [place] [address] Performed By: #### 5 7021-8 ####[facility] LABCLIA [id number] [place] [address] Nucleated RBC/100 WBC (Bld) [Ratio] 0.0 /100 WBC Normal [facility] Comment on above: Order Comment: Speci men Type: BLOOD SPECIMENOrdering Facility: [facility] Address: [address] [place] [address] Performed By: #### 5 7021-8 ####[facility] LABCLIA [id number] [place] [address] Platelet mean volume (Bld) [Entitic vol] 10.9 fL Normal 9.0-12.7 [facility] Comment on above: Order Comment: Speci men Type: BLOOD SPECIMENOrdering Facility: [facility] Address: [address] [place] [address] Performed By: #### 5 7021-8 ####[facility] LABCLIA [id number] [place] [address] Platelets (Bld) [#/Vol] 141 10*3/uL Low 150-400 [facility] Comment on above: Order Comment: Speci men Type: BLOOD SPECIMENOrdering Facility: [facility] Address: [address] [place] [address] Performed By: #### 5 7021-8 ####[facility] LABIA [id number] [place] [address] RBC (Bld) [#/Vol] 3.23 10*6/uL Low 4.20-6.00 [facility] Comment on above: Order Comment: Speci men Type: BLOOD SPECIMENOrdering Facility: [facility] Address: [address] [place] [address] Performed By: #### 5 7021-8 ####[facility] LABIA [id number] [place] [address] WBC (Bld) [#/Vol] 8.20 10*3/uL Normal 3.70-11.00 [facility] Comment on above: Order Comment: Speci men Type: BLOOD SPECIMENOrdering Facility: [facility] Address: [address] [place] [address] Performed By: #### 5 7021-8 ####[facility] LABIA [id number] [place] [address] CNOVSPon 12-23-2023 CNOVSP Normal [facility] metabolic 2000 panelOrdered By: [place] Viramontes on 12-23-2023 Albumin [Mass/Vol] 3.8 g/dL Low 3.9 - 4.9 g/dL Cl [facility] ALP [Catalytic activity/Vol] 38 U/L 38 - 113 U/L [facility] ALT [Catalytic activity/Vol] 14 U/L 10 - 54 U/L [facility] Anion gap [Moles/Vol] 8 mmol/L 8 - 15 mmol/L [facility] AST [Catalytic activity/Vol] 15 U/L 14 - 40 U/L [facility] Bilirubin [Mass/Vol] 0.6 mg/dL 0.2 - 1.3 mg/dL [facility] Calcium [Mass/Vol] 9.7 mg/dL 8.5 - 10.2 mg/dL [facility] Chloride [Moles/Vol] 101 mmol/L 98 - 107 mmol/L [facility] CO2 [Moles/Vol] 26 mmol/L 22 - 30 mmol/L [facility] Creatinine [Mass/Vol] 1.19 mg/dL 0.73 - 1.22 mg/dL [facility] GFR/1.73 sq M.predicted among non-blacks MDRD (S/P/Bld) [Vol rate/Area] 67 mL/min/{1.73_m2} - PINF [facility] Comment on above: Estimated Glomerular Filtration Rate [...] 121 mg/dL High 74 - 99 mg/dL [facility] Comment on above: The [place] Di[employer] Association (ADA) provides guidance for [...] Standards of Medical Care in Diabetes 2016, [place] [employer]. Diabetes Care. 2016.39(Suppl 1). Interpretation and review of laboratory results Abnormal [facility] Potassium [Moles/Vol] 3.9 mmol/L 3.7 - 5.1 mmol/L [facility] Protein [Mass/Vol] 6.8 g/dL 6.3 - 8.0 g/dL [facility] Sodium [Moles/Vol] 135 mmol/L Low 136 - 144 mmol/L [facility] Urea nitrogen [Mass/Vol] 41 mg/dL High 9 - 24 mg/dL [facility] Comprehensive metabolic 2000 panelon 12-23-2023 Albumin [Mass/Vol] 3.8 g/dL Low 3.9-4.9 [facility] Comment on above: Order Comment: Speci men Type: BLOOD SPECIMENOrdering Facility: [facility] Address: [address] [place] [address] Performed By: #### 2 4323-8 ####[facility] LABCLIA [id number] [place] [address] ALP [Catalytic activity/Vol] 38 U/L Normal 38-113 [facility] Comment on above: Order Comment: Speci men Type: BLOOD SPECIMENOrdering Facility: [facility] Address: [address] [place] [address] Performed By: #### 2 4323-8 ####[facility] LABCLIA [id number] [place] [address] ALT [Catalytic activity/Vol] 14 U/L Normal 10-54 [facility] Comment on above: Order Comment: Speci men Type: BLOOD SPECIMENOrdering Facility: [facility] Address: [address] [place] [address] Performed By: #### 2 4323-8 ####[facility] LABCLIA [id number] [place] [address] Anion gap [Moles/Vol] 8 mmol/L Normal 8-15 [facility] Comment on above: Order Comment: Speci men Type: BLOOD SPECIMENOrdering Facility: [facility] Address: [address] [place] [address] Performed By: #### 2 4323-8 ####[facility] LABCLIA [id number] [place] [address] AST [Catalytic activity/Vol] 15 U/L Normal 14-40 [facility] Comment on above: Order Comment: Speci men Type: BLOOD SPECIMENOrdering Facility: [facility] Address: [address] [place] [address] Performed By: #### 2 4323-8 ####[facility] LABCLIA [id number] [place] [address] Bilirubin [Mass/Vol] 0.6 mg/dL Normal 0.2-1.3 [facility] Comment on above: Order Comment: Speci men Type: BLOOD SPECIMENOrdering Facility: [facility] Address: [address] [place] [address] Performed By: #### 2 4323-8 ####[facility] LABCLIA [id number] [place] [address] Calcium [Mass/Vol] 9.7 mg/dL Normal 8.5-10.2 [facility] Comment on above: Order Comment: Speci men Type: BLOOD SPECIMENOrdering Facility: [facility] Address: [address] [place] [address] Performed By: #### 2 4323-8 ####[facility] LABCLIA [id number] [place] [address] Chloride [Moles/Vol] 101 mmol/L Normal 98-107 [facility] Comment on above: Order Comment: Speci men Type: BLOOD SPECIMENOrdering Facility: [facility] Address: [address] [place] [address] Performed By: #### 2 4323-8 ####[facility] LABCLIA [id number] [place] [address] CO2 [Moles/Vol] 26 mmol/L Normal 22-30 [facility] Comment on above: Order Comment: Speci men Type: BLOOD SPECIMENOrdering Facility: [facility] Address: [address] [place] [address] Performed By: #### 2 4323-8 ####[facility] LABCLIA [id number] [place] [address] Creatinine [Mass/Vol] 1.19 mg/dL Normal 0.73-1.22 [facility] Comment on above: Order Comment: Speci men Type: BLOOD SPECIMENOrdering Facility: [facility] Address: [address] [place] [address] Performed By: #### 2 4323-8 ####[facility] LABCLIA [id number] [place] [address] Creatinine and Glomerular filtration rate.predicted panel (S/P/Bld) 67 mL/min/1.73m??? Normal >=60 [facility] Comment on above: Order Comment: Speci men Type: BLOOD SPECIMENOrdering Facility: [facility] Address: [address] [place] [address] Result Comment: Landy mated Glomerular Filtration Rate [...] actual GFR. Performed By: #### 2 4323-8 ####[facility] LABCLIA [id number] [place] [address] Glucose [Mass/Vol] 121 mg/dL High 74-99 [facility] Comment on above: Order Comment: Speci shalom Type: BLOOD SPECIMENOrdering Facility: [facility] Address: [address] [id number] Result Comment: The [place] [employer] (ADA) provides guidance for cutoff [...] Standards of Medical Care in Diabetes 2016, [place] [employer]. Diabetes Care. 2016.39(Suppl 1). Performed By: #### 2 4323-8 ####[facility] LABCLIA [id number] [place] [address] Potassium [Moles/Vol] 3.9 mmol/L Normal 3.7-5.1 [facility] Comment on above: Order Comment: Speci men Type: BLOOD SPECIMENOrdering Facility: [facility] Address: [address] [place] [address] Performed By: #### 2 4323-8 ####[facility] LABCLIA [id number] [place] [address] Protein [Mass/Vol] 6.8 g/dL Normal 6.3-8.0 [facility] Comment on above: Order Comment: Speci men Type: BLOOD SPECIMENOrdering Facility: [facility] Address: [address] [place] [address] Performed By: #### 2 4323-8 ####[facility] LABCLIA [id number] [place] [address] Sodium [Moles/Vol] 135 mmol/L Low 136-144 [facility] Comment on above: Order Comment: Speci men Type: BLOOD SPECIMENOrdering Facility: [facility] [facility] Address: [address] [place] [address] Performed By: #### 2 4323-8 ####[facility] LABCLIA [id number] [place] [address] Urea nitrogen [Mass/Vol] 41 mg/dL High 9-24 [facility] Comment on above: Order Comment: Speci men Type: BLOOD SPECIMENOrdering Facility: [facility] Address: [address] [place] [address] Performed By: #### 2 4323-8 ####[facility] LABCLIA [id number] [place] [address] CNOVon 12-22-2023 CNOV Normal [facility] CNOVon 12-16-2023 CNOV Normal [facility] CNPNon 12-16-2023 CNPN Normal [facility] CNOVon 12-10-2023 CNOV Normal [facility] CNOVon 12-03-2023 CNOV Normal [facility] CNPNon 12-03-2023 CNPN Normal [facility] CNOVon 12-02-2023 CNOV Normal [facility] CNOVSPon 12-02-2023 CNOVSP Normal [facility] CBC W Auto Differential pane l (Bld)on 11-25-2023 Basophils (Bld) [#/Vol] 0.03 10*3/uL Normal <0.11 [facility] Comment on above: Order Comment: Speci men Type: BLOOD SPECIMENOrdering Facility: [facility] Address: [address] [place] [address] Performed By: #### 5 7021-8 ####[facility] LABCLIA [id number] [place] [address] Basophils/100 WBC (Bld) 0.4 % Normal [facility] Comment on above: Order Comment: Speci men Type: BLOOD SPECIMENOrdering Facility: [facility] Address: [address] [place] [address] Performed By: #### 5 7021-8 ####[facility] LABCL[facility] [id number] [place] [address] Differential cell count method Nom (Bld) Auto Normal [facility] Comment on above: Order Comment: Speci men Type: BLOOD SPECIMENOrdering Facility: [facility] Address: [address] [place] [address] Performed By: #### 5 7021-8 ####[facility]CL[facility] [id number] [place] [address] Eosinophils (Bld) [#/Vol] 0.08 10*3/uL Normal <0.46 [facility] Comment on above: Order Comment: Speci men Type: BLOOD SPECIMENOrdering Facility: [facility] Address: [address] [place] [address] Performed By: #### 5 7021-8 ####[facility]CL[facility] [id number] [place] [address] Eosinophils/100 WBC (Bld) 1.1 % Normal [facility] Comment on above: Order Comment: Speci men Type: BLOOD SPECIMENOrdering Facility: [facility] Address: [address] [place] [address] Performed By: #### 5 7021-8 ####[facility]CL[facility] [id number] [place] [address] Erythrocyte distribution width (RBC) [Ratio] 14.9 % Normal 11.5-15.0 [facility] Comment on above: Order Comment: Speci men Type: BLOOD SPECIMENOrdering Facility: [facility] Address: [address] [place] [address] Performed By: #### 5 7021-8 ####[facility]CL[facility] [id number] [place] [address] Hematocrit (Bld) [Volume fraction] 38.1 % Low 39.0-51.0 [facility] Comment on above: Order Comment: Speci men Type: BLOOD SPECIMENOrdering Facility: [facility] Address: [address] [place] [address] Performed By: #### 5 7021-8 ####[facility]CL[facility] [id number] [place] [address] Hemoglobin (Bld) [Mass/Vol] 12.8 g/dL Low 13.0-17.0 [facility] Comment on above: Order Comment: Speci men Type: BLOOD SPECIMENOrdering Facility: [facility] Address: [address] [place] [address] Performed By: #### 5 7021-8 ####[facility]CL[facility] [id number] [place] [address] Immature granulocytes (Bld) [#/Vol] 0.03 10*3/uL Normal <0.10 [facility] Comment on above: Order Comment: Speci men Type: BLOOD SPECIMENOrdering Facility: [facility] Address: [address] [place] [address] Performed By: #### 5 7021-8 ####[facility] LABCLIA [id number] [place] [address] Immature granulocytes/100 WBC (Bld) 0.4 % Normal [facility] Comment on above: Order Comment: Speci men Type: BLOOD SPECIMENOrdering Facility: [facility] Address: [address] [place] [address] Performed By: #### 5 7021-8 ####[facility] LABCLIA [id number] [place] [address] Lymphocytes (Bld) [#/Vol] 0.66 10*3/uL Low 1.00-4.00 [facility] Comment on above: Order Comment: Speci men Type: BLOOD SPECIMENOrdering Facility: [facility] Address: [address] [place] [address] Performed By: #### 5 7021-8 ####[facility] LABCLIA [id number] [place] [address] Lymphocytes/100 WBC (Bld) 9.4 % Normal [facility] Comment on above: Order Comment: Speci men Type: BLOOD SPECIMENOrdering Facility: [facility] Address: [address] [place] [address] Performed By: #### 5 7021-8 ####[facility]CL[facility] [id number] [place] [address] MCH (RBC) [Entitic mass] 31.0 pg Normal 26.0-34.0 [facility] Comment on above: Order Comment: Speci men Type: BLOOD SPECIMENOrdering Facility: [facility] Address: [address] [place] [address] Performed By: #### 5 7021-8 ####[facility]CLIA [id number] [place] [address] MCHC (RBC) [Mass/Vol] 33.6 g/dL Normal 30.5-36.0 [facility] Comment on above: Order Comment: Speci men Type: BLOOD SPECIMENOrdering Facility: [facility] Address: [address] [place] [address] Performed By: #### 5 7021-8 ####[facility] LABIA [id number] [place] [address] MCV (RBC) [Entitic vol] 92.3 fL Normal 80.0-100.0 [facility] Comment on above: Order Comment: Speci men Type: BLOOD SPECIMENOrdering Facility: [facility] Address: [address] [place] [address] Performed By: #### 5 7021-8 ####[facility] LABCLIA [id number] [place] [address] Monocytes (Bld) [#/Vol] 1.02 10*3/uL High <0.87 [facility] Comment on above: Order Comment: Speci men Type: BLOOD SPECIMENOrdering Facility: [facility] Address: [address] [place] [address] Performed By: #### 5 7021-8 ####[facility] LABIA [id number] [place] [address] Monocytes/100 WBC (Bld) 14.5 % Normal [facility] Comment on above: Order Comment: Speci men Type: BLOOD SPECIMENOrdering Facility: [facility] Address: [address] [place] [address] Performed By: #### 5 7021-8 ####[facility] LABCL[facility] [id number] [place] [address] Neutrophils (Bld) [#/Vol] 5.22 10*3/uL Normal 1.45-7.50 [facility] Comment on above: Order Comment: Speci men Type: BLOOD SPECIMENOrdering Facility: [facility] Address: [address] [place] [address] Performed By: #### 5 7021-8 ####[facility] LABCL[facility] [id number] [place] [address] Neutrophils/100 WBC (Bld) 74.2 % Normal [facility] Comment on above: Order Comment: Speci men Type: BLOOD SPECIMENOrdering Facility: [facility] Address: [address] [place] [address] Performed By: #### 5 7021-8 ####[facility]CL[facility] [id number] [place] [address] Nucleated RBC (Bld) [#/Vol] 10*3/uL Normal <0.01 [facility] Comment on above: Order Comment: Speci men Type: BLOOD SPECIMENOrdering Facility: [facility] Address: [address] [place] [address] Performed By: #### 5 7021-8 ####[facility] LABCL[facility] [id number] [place] [address] Nucleated RBC/100 WBC (Bld) [Ratio] 0.0 /100 WBC Normal [facility] Comment on above: Order Comment: Speci men Type: BLOOD SPECIMENOrdering Facility: [facility] Address: [address] [place] [address] Performed By: #### 5 7021-8 ####[facility] LABCL[facility] [id number] [place] [address] Platelet mean volume (Bld) [Entitic vol] 10.7 fL Normal 9.0-12.7 [facility] Comment on above: Order Comment: Speci men Type: BLOOD SPECIMENOrdering Facility: [facility] Address: [address] [place] [address] Performed By: #### 5 7021-8 ####[facility]CL[facility] [id number] [place] [address] Platelets (Bld) [#/Vol] 225 10*3/uL Normal 150-400 [facility] Comment on above: Order Comment: Speci men Type: BLOOD SPECIMENOrdering Facility: [facility] Address: [address] [place] [address] Performed By: #### 5 7021-8 ####[facility] LABIA [id number] [place] [address] RBC (Bld) [#/Vol] 4.13 10*6/uL Low 4.20-6.00 [facility] Comment on above: Order Comment: Speci men Type: BLOOD SPECIMENOrdering Facility: [facility] Address: [address] [place] [address] Performed By: #### 5 7021-8 ####[facility] LABIA [id number] [place] [address] WBC (Bld) [#/Vol] 7.04 10*3/uL Normal 3.70-11.00 [facility] Comment on above: Order Comment: Speci men Type: BLOOD SPECIMENOrdering Facility: [facility] Address: [address] [place] [address] Performed By: #### 5 7021-8 ####[facility] LABIA [id number] [place] [address] Comprehensive metabolic 2000 panelon 11-25-2023 Albumin [Mass/Vol] 3.8 g/dL Low 3.9-4.9 [facility] Comment on above: Order Comment: Speci men Type: BLOOD SPECIMENOrdering Facility: [facility] Address: [address] [place] [address] Performed By: #### 2 4323-8 ####[facility] LABCLIA [id number] [place] [address] ALP [Catalytic activity/Vol] 51 U/L Normal 38-113 [facility] Comment on above: Order Comment: Speci men Type: BLOOD SPECIMENOrdering Facility: [facility] Address: [address] [place] [address] Performed By: #### 2 4323-8 ####[facility] LABCLIA [id number] [place] [address] ALT [Catalytic activity/Vol] 25 U/L Normal 10-54 [facility] Comment on above: Order Comment: Speci men Type: BLOOD SPECIMENOrdering Facility: [facility] Address: [address] [place] [address] Performed By: #### 2 4323-8 ####[facility] LABCLIA [id number] [place] [address] Anion gap [Moles/Vol] 12 mmol/L Normal 9-18 [facility] Comment on above: Order Comment: Speci men Type: BLOOD SPECIMENOrdering Facility: [facility] Address: [address] [place] [address] Performed By: #### 2 4323-8 ####[facility] LABCLIA [id number] [place] [address] AST [Catalytic activity/Vol] 18 U/L Normal 14-40 [facility] Comment on above: Order Comment: Speci men Type: BLOOD SPECIMENOrdering Facility: [facility] Address: [address] [place] [address] Performed By: #### 2 4323-8 ####[facility] LABCLIA [id number] [place] [address] Bilirubin [Mass/Vol] 0.8 mg/dL Normal 0.2-1.3 [facility] Comment on above: Order Comment: Speci men Type: BLOOD SPECIMENOrdering Facility: [facility] Address: [address] [place] [address] Performed By: #### 2 4323-8 ####[facility] LABCLIA [id number] [place] [address] Calcium [Mass/Vol] 9.1 mg/dL Normal 8.5-10.2 [facility] Comment on above: Order Comment: Speci men Type: BLOOD SPECIMENOrdering Facility: [facility] Address: [address] [place] [address] Performed By: #### 2 4323-8 ####[facility] LABCLIA [id number] [place] [address] Chloride [Moles/Vol] 100 mmol/L Normal 97-105 [facility] Comment on above: Order Comment: Speci men Type: BLOOD SPECIMENOrdering Facility: [facility] Address: [address] [place] [address] Performed By: #### 2 4323-8 ####[facility] LABCLIA [id number] [place] [address] CO2 [Moles/Vol] 25 mmol/L Normal 22-30 [facility] Comment on above: Order Comment: Speci men Type: BLOOD SPECIMENOrdering Facility: [facility] Address: [address] [place] [address] Performed By: #### 2 4323-8 ####[facility] LABCLIA [id number] [place] [address] Creatinine [Mass/Vol] 1.20 mg/dL Normal 0.73-1.22 [facility] Comment on above: Order Comment: Speci men Type: BLOOD SPECIMENOrdering Facility: [facility] Address: [address] [place], [place] [address] Performed By: #### 2 4323-8 ####[facility] LABCLIA [id number] [place] [address] Creatinine and Glomerular filtration rate.predicted panel (S/P/Bld) 67 mL/min/1.73m??? Normal >=60 [facility] Comment on above: Order Comment: Ajay rausch Type: BLOOD SPECIMENOrdering Facility: [facility] Address: [address] [place] [address] Result Comment: Landy mated Glomerular Filtration Rate [...] actual GFR. Performed By: #### 2 4323-8 ####[facility] LABCLIA [id number] [place] [address] Glucose [Mass/Vol] 100 mg/dL High 74-99 [facility] Comment on above: Order Comment: Ajay rausch Type: BLOOD SPECIMENOrdering Facility: [facility] Address: [address] [place] [address] Result Comment: The [place] [employer] (ADA) provides guidance for cutoff [...] Standards of Medical Care in Diabetes 2016, [place] [employer]. Diabetes Care. 2016.39(Suppl 1). Performed By: #### 2 4323-8 ####[facility] LABCLIA [id number] [place] [address] Potassium [Moles/Vol] 3.9 mmol/L Normal 3.7-5.1 [facility] Comment on above: Order Comment: Speci men Type: BLOOD SPECIMENOrdering Facility: [facility] Address: [address] [place] [address] Performed By: #### 2 4323-8 ####[facility] LABCLIA [id number] [place] [address] Protein [Mass/Vol] 7.3 g/dL Normal 6.3-8.0 [facility] Comment on above: Order Comment: Speci men Type: BLOOD SPECIMENOrdering Facility: [facility] Address: [address] [place] [address] Performed By: #### 2 4323-8 ####[facility] LABCLIA [id number] [place] [address] Sodium [Moles/Vol] 137 mmol/L Normal 136-144 [facility] Comment on above: Order Comment: Speci men Type: BLOOD SPECIMENOrdering Facility: [facility] Address: [address] [place] [address] Performed By: #### 2 4323-8 ####[facility] LABCLIA [id number] [place] [address] Urea nitrogen [Mass/Vol] 15 mg/dL Normal 9-24 [facility] Comment on above: Order Comment: Speci men Type: BLOOD SPECIMENOrdering Facility: [facility] Address: [address] [place] [address] Performed By: #### 2 4323-8 ####[facility] LABIA [id number] [place] [address] NM PET/CT SKULL-THIGH SUBQon 11-25-2023 NM PET/CT SKULL-THIGH SUBQ Normal [facility] TSH SerPl-aCncon 11-25-2023 TSH Qn 3.890 m[IU]/L Normal 0.270-4.200 [facility] Comment on above: Order Comment: Speci men Type: BLOOD SPECIMENOrdering Facility: [facility] Address: [address] [place], [place] [address] Performed By: #### 3 016-3 ####[facility] LABCLIA [id number] [facility] [id number] [id number] [place] CNPNon 11-24-2023 CNPN Normal [facility] CNOVon 11-21-2023 CNOV Normal [facility] CNPNon 11-11-2023 CNPN Normal [facility] CBC W Auto Differential pane l (Bld)on 11-04-2023 Basophils (Bld) [#/Vol] <0.11 k/uL [facility] Basophils/100 WBC (Bld) 0.4 % [facility] Differential cell count method Nom (Bld) Auto [facility] Eosinophils (Bld) [#/Vol] 0.16 10*3/uL <0.46 k/uL [facility] Eosinophils/100 WBC (Bld) 2.9 % [facility] Erythrocyte distribution width (RBC) [Ratio] 17.0 % High 11.5 - 15.0 % [facility] Hematocrit (Bld) [Volume fraction] 37.1 % Low 39.0 - 51.0 % [facility] Hemoglobin (Bld) [Mass/Vol] 12.5 g/dL Low 13.0 - 17.0 g/dL [facility] Immature granulocytes (Bld) [#/Vol] 0.03 10*3/uL <0.10 k/uL [facility] Immature granulocytes/100 WBC (Bld) 0.5 % [facility] Lymphocytes (Bld) [#/Vol] 0.86 10*3/uL Low 1.00 - 4.00 k/uL [facility] Lymphocytes/100 WBC (Bld) 15.4 % [facility] MCH (RBC) [Entitic mass] 30.9 pg 26.0 - 34.0 pg [facility] MCHC (RBC) [Mass/Vol] 33.7 g/dL 30.5 - 36.0 g/dL [facility] MCV (RBC) [Entitic vol] 91.6 fL 80.0 - 100.0 fL [facility] Monocytes (Bld) [#/Vol] 0.95 10*3/uL High <0.87 k/uL [facility] Monocytes/100 WBC (Bld) 17.0 % [facility] Neutrophils (Bld) [#/Vol] 3.57 10*3/uL 1.45 - 7.50 k/uL [facility] Neutrophils/100 WBC (Bld) 63.8 % [facility] Nucleated RBC (Bld) [#/Vol] <0.01 k/uL [facility] Nucleated RBC/100 WBC (Bld) [Ratio] 0.0 /100 WBC [facility] Platelet mean volume (Bld) [Entitic vol] 10.7 fL 9.0 - 12.7 fL [facility] Platelets (Bld) [#/Vol] 186 10*3/uL 150 - 400 k/uL [facility] RBC (Bld) [#/Vol] 4.05 10*6/uL Low 4.20 - 6.00 m/uL [facility] WBC (Bld) [#/Vol] 5.59 10*3/uL 3.70 - 11.00 k/u L [facility] Basophils (Bld) [#/Vol] 10*3/uL Normal <0.11 [facility] Comment on above: Order Comment: Speci men Type: BLOOD SPECIMENOrdering Facility: [facility] Address: [address] [place] [address] Performed By: #### 5 7021-8 ####[facility] LABCLIA [id number] [place] [address] Basophils/100 WBC (Bld) 0.4 % Normal [facility] Comment on above: Order Comment: Speci men Type: BLOOD SPECIMENOrdering Facility: [facility] Address: [address] [place] [address] Performed By: #### 5 7021-8 ####[facility] LABCLIA [id number] [place] [address] Differential cell count method Nom (Bld) Auto Normal [facility] Comment on above: Order Comment: Speci men Type: BLOOD SPECIMENOrdering Facility: [facility] Address: [address] [place] [address] Performed By: #### 5 7021-8 ####[facility] LABCLIA [id number] [place] [address] Eosinophils (Bld) [#/Vol] 0.16 10*3/uL Normal <0.46 [facility] Comment on above: Order Comment: Speci men Type: BLOOD SPECIMENOrdering Facility: [facility] Address: [address] [place] [address] Performed By: #### 5 7021-8 ####[facility] LABCLIA [id number] [place] [address] Eosinophils/100 WBC (Bld) 2.9 % Normal [facility] Comment on above: Order Comment: Speci men Type: BLOOD SPECIMENOrdering Facility: [facility] Address: [address] [place] [address] Performed By: #### 5 7021-8 ####[facility] LABIA [id number] [place] [address] Erythrocyte distribution width (RBC) [Ratio] 17.0 % High 11.5-15.0 [facility] Comment on above: Order Comment: Speci men Type: BLOOD SPECIMENOrdering Facility: [facility] Address: [address] [place] [address] Performed By: #### 5 7021-8 ####[facility] LABCLIA [id number] [place] [address] Hematocrit (Bld) [Volume fraction] 37.1 % Low 39.0-51.0 [facility] Comment on above: Order Comment: Speci men Type: BLOOD SPECIMENOrdering Facility: [facility] Address: [address] [place] [address] Performed By: #### 5 7021-8 ####[facility] LABIA [id number] [place] [address] Hemoglobin (Bld) [Mass/Vol] 12.5 g/dL Low 13.0-17.0 [facility] Comment on above: Order Comment: Speci men Type: BLOOD SPECIMENOrdering Facility: [facility] Address: [address] [place] [address] Performed By: #### 5 7021-8 ####[facility] LABCLIA [id number] [place] [address] Immature granulocytes (Bld) [#/Vol] 0.03 10*3/uL Normal <0.10 [facility] Comment on above: Order Comment: Speci men Type: BLOOD SPECIMENOrdering Facility: [facility] Address: [address] [place] [address] Performed By: #### 5 7021-8 ####[facility] LABIA [id number] [place] [address] Immature granulocytes/100 WBC (Bld) 0.5 % Normal [facility] Comment on above: Order Comment: Speci men Type: BLOOD SPECIMENOrdering Facility: [facility] Address: [address] [place] [address] Performed By: #### 5 7021-8 ####[facility] LABIA [id number] [place] [address] Lymphocytes (Bld) [#/Vol] 0.86 10*3/uL Low 1.00-4.00 [facility] Comment on above: Order Comment: Speci men Type: BLOOD SPECIMENOrdering Facility: [facility] Address: [address] [place] [address] Performed By: #### 5 7021-8 ####[facility] LABCLIA [id number] [place] [address] Lymphocytes/100 WBC (Bld) 15.4 % Normal [facility] Comment on above: Order Comment: Speci men Type: BLOOD SPECIMENOrdering Facility: [facility] Address: [address] [place] [address] Performed By: #### 5 7021-8 ####[facility] LABIA [id number] [place] [address] MCH (RBC) [Entitic mass] 30.9 pg Normal 26.0-34.0 [facility] Comment on above: Order Comment: Speci men Type: BLOOD SPECIMENOrdering Facility: [facility] Address: [address] [place] [address] Performed By: #### 5 7021-8 ####[facility] LABCLIA [id number] [place] [address] MCHC (RBC) [Mass/Vol] 33.7 g/dL Normal 30.5-36.0 [facility] Comment on above: Order Comment: Speci men Type: BLOOD SPECIMENOrdering Facility: [facility] Address: [address] [place] [address] Performed By: #### 5 7021-8 ####[facility] LABCLIA [id number] [place] [address] MCV (RBC) [Entitic vol] 91.6 fL Normal 80.0-100.0 [facility] Comment on above: Order Comment: Speci men Type: BLOOD SPECIMENOrdering Facility: [facility] Address: [address] [place] [address] Performed By: #### 5 7021-8 ####[facility] LABIA [id number] [place] [address] Monocytes (Bld) [#/Vol] 0.95 10*3/uL High <0.87 [facility] Comment on above: Order Comment: Speci men Type: BLOOD SPECIMENOrdering Facility: [facility] Address: [address] [place] [address] Performed By: #### 5 7021-8 ####[facility] LABCLIA [id number] [place] [address] Monocytes/100 WBC (Bld) 17.0 % Normal [facility] Comment on above: Order Comment: Speci men Type: BLOOD SPECIMENOrdering Facility: [facility] Address: [address] [place] [address] Performed By: #### 5 7021-8 ####[facility] LABCLIA [id number] [place] [address] Neutrophils (Bld) [#/Vol] 3.57 10*3/uL Normal 1.45-7.50 [facility] Comment on above: Order Comment: Speci men Type: BLOOD SPECIMENOrdering Facility: [facility] Address: [address] [place] [address] Performed By: #### 5 7021-8 ####[facility] LABCLIA [id number] [place] [address] Neutrophils/100 WBC (Bld) 63.8 % Normal [facility] Comment on above: Order Comment: Speci men Type: BLOOD SPECIMENOrdering Facility: [facility] Address: [address] [place] [address] Performed By: #### 5 7021-8 ####[facility] LABCLIA [id number] [place] [address] Nucleated RBC (Bld) [#/Vol] 10*3/uL Normal <0.01 [facility] Comment on above: Order Comment: Speci men Type: BLOOD SPECIMENOrdering Facility: [facility] Address: [address] [place] [address] Performed By: #### 5 7021-8 ####[facility] LABCLIA [id number] [place] [address] Nucleated RBC/100 WBC (Bld) [Ratio] 0.0 /100 WBC Normal [facility] Comment on above: Order Comment: Speci men Type: BLOOD SPECIMENOrdering Facility: [facility] Address: [address] [place] [address] Performed By: #### 5 7021-8 ####[facility] LABIA [id number] [place] [address] Platelet mean volume (Bld) [Entitic vol] 10.7 fL Normal 9.0-12.7 [facility] Comment on above: Order Comment: Speci men Type: BLOOD SPECIMENOrdering Facility: [facility] Address: [address] [place], [place] [id number] Performed By: #### 5 7021-8 ####[facility] LABCLIA [id number] [place] [address] Platelets (Bld) [#/Vol] 186 10*3/uL Normal 150-400 [facility] Comment on above: Order Comment: Speci men Type: BLOOD SPECIMENOrdering Facility: [facility] Address: [address] [place] [address] Performed By: #### 5 7021-8 ####[facility] LABCLIA [id number] [place] [address] RBC (Bld) [#/Vol] 4.05 10*6/uL Low 4.20-6.00 [facility] Comment on above: Order Comment: Speci men Type: BLOOD SPECIMENOrdering Facility: [facility] Address: [address] [place] [address] Performed By: #### 5 7021-8 ####[facility] LABIA [id number] [place] [address] WBC (Bld) [#/Vol] 5.59 10*3/uL Normal 3.70-11.00 [facility] Comment on above: Order Comment: Speci men Type: BLOOD SPECIMENOrdering Facility: [facility] Address: [address] [place] [address] Performed By: #### 5 7021-8 ####[facility] LABIA [id number] [place] [address] CNCNPATEDon 11-04-2023 CNCNPATED Normal [facility] CNOVSPon 11-04-2023 CNOVSP Normal [facility] CNPNon 11-04-2023 CNPN Normal [facility] Comprehensive metabolic 2000 panelon 11-04-2023 Albumin [Mass/Vol] 4.0 g/dL 3.9 - 4.9 g/dL [facility] ALP [Catalytic activity/Vol] 65 U/L 38 - 113 U/L [facility] ALT [Catalytic activity/Vol] 415 U/L High 10 - 54 U/L [facility] Anion gap [Moles/Vol] 14 mmol/L 9 - 18 mmol/L [facility] AST [Catalytic activity/Vol] 100 U/L High 14 - 40 U/L [facility] Bilirubin [Mass/Vol] 1.0 mg/dL 0.2 - 1.3 mg/dL [facility] Calcium [Mass/Vol] 9.9 mg/dL 8.5 - 10.2 mg/dL [facility] Chloride [Moles/Vol] 107 mmol/L High 97 - 105 mmol/L [facility] CO2 [Moles/Vol] 23 mmol/L 22 - 30 mmol/L [facility] Creatinine [Mass/Vol] 1.23 mg/dL High 0.73 - 1.22 mg/dL [facility] Estimated Glomerular Filtration Rate 65 mL/min/1.73m >=60 mL/min/1.73m [facility] Glucose [Mass/Vol] 95 mg/dL 74 - 99 mg/dL [facility] Potassium [Moles/Vol] 3.5 mmol/L Low 3.7 - 5.1 mmol/L [facility] Protein [Mass/Vol] 7.3 g/dL 6.3 - 8.0 g/dL [facility] Sodium [Moles/Vol] 144 mmol/L 136 - 144 mmol/L [facility] Urea nitrogen [Mass/Vol] 19 mg/dL 9 - 24 mg/dL [facility] Albumin [Mass/Vol] 4.0 g/dL Normal 3.9-4.9 [facility] Comment on above: Order Comment: Speci men Type: BLOOD SPECIMENOrdering Facility: [facility] Address: [address] [place] [address] Performed By: #### 2 4323-8 ####[facility] LABIA [id number] [place] [address] ALP [Catalytic activity/Vol] 65 U/L Normal 38-113 [facility] Comment on above: Order Comment: Speci men Type: BLOOD SPECIMENOrdering Facility: [facility] Address: [address] [place] [address] Performed By: #### 2 4323-8 ####[facility] LABCLIA [id number] [place] [address] ALT [Catalytic activity/Vol] 415 U/L High 10-54 [facility] Comment on above: Order Comment: Speci men Type: BLOOD SPECIMENOrdering Facility: [facility] Address: [address] [place] [address] Performed By: #### 2 4323-8 ####[facility] LABCLIA [id number] [place] [address] Anion gap [Moles/Vol] 14 mmol/L Normal 9-18 [facility] Comment on above: Order Comment: Speci men Type: BLOOD SPECIMENOrdering Facility: [facility] Address: [address] [place] [address] Performed By: #### 2 4323-8 ####[facility] LABCLIA [id number] [place] [address] AST [Catalytic activity/Vol] 100 U/L High 14-40 [facility] Comment on above: Order Comment: Speci men Type: BLOOD SPECIMENOrdering Facility: [facility] Address: [address] [place] [address] Performed By: #### 2 4323-8 ####[facility] LABCLIA [id number] [place] [address] Bilirubin [Mass/Vol] 1.0 mg/dL Normal 0.2-1.3 [facility] Comment on above: Order Comment: Speci men Type: BLOOD SPECIMENOrdering Facility: [facility] Address: [address] [place] [address] Performed By: #### 2 4323-8 ####[facility] LABCLIA [id number] [place] [address] Calcium [Mass/Vol] 9.9 mg/dL Normal 8.5-10.2 [facility] Comment on above: Order Comment: Speci men Type: BLOOD SPECIMENOrdering Facility: [facility] Address: [address] [place] [address] Performed By: #### 2 4323-8 ####[facility] LABCLIA [id number] [place] [address] Chloride [Moles/Vol] 107 mmol/L High 97-105 [facility] Comment on above: Order Comment: Speci men Type: BLOOD SPECIMENOrdering Facility: [facility] Address: [address] [place] [address] Performed By: #### 2 4323-8 ####[facility] LABCLIA [id number] [place] [address] CO2 [Moles/Vol] 23 mmol/L Normal 22-30 [facility] Comment on above: Order Comment: Speci men Type: BLOOD SPECIMENOrdering Facility: [facility] Address: [address] [place] [address] Performed By: #### 2 4323-8 ####[facility] LABCLIA [id number] [place] [address] Creatinine [Mass/Vol] 1.23 mg/dL High 0.73-1.22 [facility] Comment on above: Order Comment: Speci men Type: BLOOD SPECIMENOrdering Facility: [facility] Address: [address] [place] [address] Performed By: #### 2 4323-8 ####[facility] LABCLIA [id number] [place] [address] Creatinine and Glomerular filtration rate.predicted panel (S/P/Bld) 65 mL/min/1.73m??? Normal >=60 [facility] Comment on above: Order Comment: Speci men Type: BLOOD SPECIMENOrdering Facility: [facility] Address: [address] [place] [address] Result Comment: Landy mated Glomerular Filtration Rate [...] actual GFR. Performed By: #### 2 4323-8 ####[facility] LABCLIA [id number] [place] [address] Glucose [Mass/Vol] 95 mg/dL Normal 74-99 [facility] Comment on above: Order Comment: Speci men Type: BLOOD SPECIMENOrdering Facility: [facility] Address: [address] [place] [address] Result Comment: The [place] [employer] (ADA) provides guidance for cutoff [...] Standards of Medical Care in Diabetes 2016, [place] [employer]. Diabetes Care. 2016.39(Suppl 1). Performed By: #### 2 4323-8 ####[facility] LABCLIA [id number] [place] [address] Potassium [Moles/Vol] 3.5 mmol/L Low 3.7-5.1 [facility] Comment on above: Order Comment: Speci men Type: BLOOD SPECIMENOrdering Facility: [facility] Address: [address] [place] [address] Performed By: #### 2 4323-8 ####[facility] LABCLIA [id number] [place] [address] Protein [Mass/Vol] 7.3 g/dL Normal 6.3-8.0 [facility] Comment on above: Order Comment: Speci men Type: BLOOD SPECIMENOrdering Facility: [facility] Address: [address] [place] [address] Performed By: #### 2 4323-8 ####[facility] LABCLIA [id number] [place] [address] Sodium [Moles/Vol] 144 mmol/L Normal 136-144 [facility] Comment on above: Order Comment: Speci men Type: BLOOD SPECIMENOrdering Facility: [facility] Address: [address] [place], [place] [address] Performed By: #### 2 4323-8 ####[facility] LABCLIA [id number] [place] [address] Urea nitrogen [Mass/Vol] 19 mg/dL Normal 9-24 [facility] Comment on above: Order Comment: Speci men Type: BLOOD SPECIMENOrdering Facility: [facility] Address: [address] [place], [place] [address] Performed By: #### 2 4323-8 ####[facility] LABCLIA [id number] [place] [address] CNPNon 10-24-2023 CNPN Normal [facility] CNPNon 10-21-2023 CNPN Normal [facility] CT CHEST W IVCONon CT CHEST W IVCON Normal [facility] CT Chest W contrast Anoop [facility] CBC W Auto Differential pane l (Bld)on 10-20-2023 Basophils (Bld) [#/Vol] <0.11 k/uL [facility] Basophils/100 WBC (Bld) 0.4 % [facility] Differential cell count method Nom (Bld) Auto [facility] Eosinophils (Bld) [#/Vol] 0.07 10*3/uL <0.46 k/uL [facility] Eosinophils/100 WBC (Bld) 1.3 % [facility] Erythrocyte distribution width (RBC) [Ratio] 15.9 % High 11.5 - 15.0 % [facility] Hematocrit (Bld) [Volume fraction] 40.6 % 39.0 - 51.0 % [facility] Hemoglobin (Bld) [Mass/Vol] 13.6 g/dL 13.0 - 17.0 g/dL [facility] Immature granulocytes (Bld) [#/Vol] 0.03 10*3/uL <0.10 k/uL [facility] Immature granulocytes/100 WBC (Bld) 0.5 % [facility] Lymphocytes (Bld) [#/Vol] 1.04 10*3/uL 1.00 - 4.00 k/uL [facility] Lymphocytes/100 WBC (Bld) 18.6 % [facility] MCH (RBC) [Entitic mass] 30.4 pg 26.0 - 34.0 pg [facility] MCHC (RBC) [Mass/Vol] 33.5 g/dL 30.5 - 36.0 g/dL [facility] MCV (RBC) [Entitic vol] 90.6 fL 80.0 - 100.0 fL [facility] Monocytes (Bld) [#/Vol] 0.78 10*3/uL <0.87 k/uL [facility] Monocytes/100 WBC (Bld) 13.9 % [facility] Neutrophils (Bld) [#/Vol] 3.66 10*3/uL 1.45 - 7.50 k/uL [facility] Neutrophils/100 WBC (Bld) 65.3 % [facility] Nucleated RBC (Bld) [#/Vol] <0.01 k/uL [facility] Nucleated RBC/100 WBC (Bld) [Ratio] 0.0 /100 WBC [facility] Platelet mean volume (Bld) [Entitic vol] 10.7 fL 9.0 - 12.7 fL [facility] Platelets (Bld) [#/Vol] 214 10*3/uL 150 - 400 k/uL [facility] RBC (Bld) [#/Vol] 4.48 10*6/uL 4.20 - 6.00 m/uL [facility] WBC (Bld) [#/Vol] 5.60 10*3/uL 3.70 - 11.00 k/u L [facility] Basophils (Bld) [#/Vol] 10*3/uL Normal <0.11 [facility] Comment on above: Order Comment: Speci men Type: BLOOD SPECIMENOrdering Facility: [facility] Address: [address] [place] [address] Performed By: #### 5 7021-8 ####[facility] LABCLIA [id number] [place] [address] Basophils/100 WBC (Bld) 0.4 % Normal [facility] Comment on above: Order Comment: Speci men Type: BLOOD SPECIMENOrdering Facility: [facility] Address: [address] [place] [address] Performed By: #### 5 7021-8 ####[facility] LABCLIA [id number] [place] [address] Differential cell count method Nom (Bld) Auto Normal [facility] Comment on above: Order Comment: Speci men Type: BLOOD SPECIMENOrdering Facility: [facility] Address: [address] [place] [address] Performed By: #### 5 7021-8 ####[facility] LABCLIA [id number] [place] [address] Eosinophils (Bld) [#/Vol] 0.07 10*3/uL Normal <0.46 [facility] Comment on above: Order Comment: Speci men Type: BLOOD SPECIMENOrdering Facility: [facility] Address: [address] [place] [address] Performed By: #### 5 7021-8 ####[facility] LABCLIA [id number] [place] [address] Eosinophils/100 WBC (Bld) 1.3 % Normal [facility] Comment on above: Order Comment: Speci men Type: BLOOD SPECIMENOrdering Facility: [facility] Address: [address] [place] [address] Performed By: #### 5 7021-8 ####[facility] LABCLIA [id number] [place] [address] Erythrocyte distribution width (RBC) [Ratio] 15.9 % High 11.5-15.0 [facility] Comment on above: Order Comment: Speci men Type: BLOOD SPECIMENOrdering Facility: [facility] Address: [address] [place] [address] Performed By: #### 5 7021-8 ####[facility] LABCLIA [id number] [place] [address] Hematocrit (Bld) [Volume fraction] 40.6 % Normal 39.0-51.0 [facility] Comment on above: Order Comment: Speci men Type: BLOOD SPECIMENOrdering Facility: [facility] Address: [address] [place] [address] Performed By: #### 5 7021-8 ####[facility] LABCLIA [id number] [place] [address] Hemoglobin (Bld) [Mass/Vol] 13.6 g/dL Normal 13.0-17.0 [facility] Comment on above: Order Comment: Speci men Type: BLOOD SPECIMENOrdering Facility: [facility] Address: [address] [place] [address] Performed By: #### 5 7021-8 ####[facility] LABCLIA [id number] [place] [address] Immature granulocytes (Bld) [#/Vol] 0.03 10*3/uL Normal <0.10 [facility] Comment on above: Order Comment: Speci men Type: BLOOD SPECIMENOrdering Facility: [facility] Address: [address] [place] [address] Performed By: #### 5 7021-8 ####[facility] LABCLIA [id number] [place] [address] Immature granulocytes/100 WBC (Bld) 0.5 % Normal [facility] Comment on above: Order Comment: Speci men Type: BLOOD SPECIMENOrdering Facility: [facility] Address: [address] [place] [address] Performed By: #### 5 7021-8 ####[facility] LABCLIA [id number] [place] [address] Lymphocytes (Bld) [#/Vol] 1.04 10*3/uL Normal 1.00-4.00 [facility] Comment on above: Order Comment: Speci men Type: BLOOD SPECIMENOrdering Facility: [facility] Address: [address] [place] [address] Performed By: #### 5 7021-8 ####[facility] LABCLIA [id number] [place] [address] Lymphocytes/100 WBC (Bld) 18.6 % Normal [facility] Comment on above: Order Comment: Speci men Type: BLOOD SPECIMENOrdering Facility: [facility] Address: [address] [place] [address] Performed By: #### 5 7021-8 ####[facility] LABIA [id number] [place] [address] MCH (RBC) [Entitic mass] 30.4 pg Normal 26.0-34.0 [facility] Comment on above: Order Comment: Speci men Type: BLOOD SPECIMENOrdering Facility: [facility] Address: [address] [place] [address] Performed By: #### 5 7021-8 ####[facility] LABCLIA [id number] [place] [address] MCHC (RBC) [Mass/Vol] 33.5 g/dL Normal 30.5-36.0 [facility] Comment on above: Order Comment: Speci men Type: BLOOD SPECIMENOrdering Facility: [facility] Address: [address] [place] [address] Performed By: #### 5 7021-8 ####[facility] LABIA [id number] [place] [address] MCV (RBC) [Entitic vol] 90.6 fL Normal 80.0-100.0 [facility] Comment on above: Order Comment: Speci men Type: BLOOD SPECIMENOrdering Facility: [facility] Address: [address] [place] [address] Performed By: #### 5 7021-8 ####[facility] LABCLIA [id number] [place] [address] Monocytes (Bld) [#/Vol] 0.78 10*3/uL Normal <0.87 [facility] Comment on above: Order Comment: Speci men Type: BLOOD SPECIMENOrdering Facility: [facility] Address: [address] [place] [address] Performed By: #### 5 7021-8 ####[facility] LABCLIA [id number] [place] [address] Monocytes/100 WBC (Bld) 13.9 % Normal [facility] Comment on above: Order Comment: Speci men Type: BLOOD SPECIMENOrdering Facility: [facility] Address: [address] [place] [address] Performed By: #### 5 7021-8 ####[facility] LABCLIA [id number] [place] [address] Neutrophils (Bld) [#/Vol] 3.66 10*3/uL Normal 1.45-7.50 [facility] Comment on above: Order Comment: Speci men Type: BLOOD SPECIMENOrdering Facility: [facility] Address: [address] [place] [address] Performed By: #### 5 7021-8 ####[facility] LABCLIA [id number] [place] [address] Neutrophils/100 WBC (Bld) 65.3 % Normal [facility] Comment on above: Order Comment: Speci men Type: BLOOD SPECIMENOrdering Facility: [facility] Address: [address] [place] [address] Performed By: #### 5 7021-8 ####[facility] LABCLIA [id number] [place] [address] Nucleated RBC (Bld) [#/Vol] 10*3/uL Normal <0.01 [facility] Comment on above: Order Comment: Speci men Type: BLOOD SPECIMENOrdering Facility: [facility] Address: [address] [place] [address] Performed By: #### 5 7021-8 ####[facility] LABCLIA [id number] [place] [address] Nucleated RBC/100 WBC (Bld) [Ratio] 0.0 /100 WBC Normal [facility] Comment on above: Order Comment: Speci men Type: BLOOD SPECIMENOrdering Facility: [facility] Address: [address] [place] [address] Performed By: #### 5 7021-8 ####[facility] LABCLIA [id number] [place] [address] Platelet mean volume (Bld) [Entitic vol] 10.7 fL Normal 9.0-12.7 [facility] Comment on above: Order Comment: Speci men Type: BLOOD SPECIMENOrdering Facility: [facility] Address: [address] [place] [address] Performed By: #### 5 7021-8 ####[facility] LABCLIA [id number] [place] [address] Platelets (Bld) [#/Vol] 214 10*3/uL Normal 150-400 [facility] Comment on above: Order Comment: Speci men Type: BLOOD SPECIMENOrdering Facility: [facility] Address: [address] [place] [address] Performed By: #### 5 7021-8 ####[facility] LABCLIA [id number] [place] [address] RBC (Bld) [#/Vol] 4.48 10*6/uL Normal 4.20-6.00 [facility] Comment on above: Order Comment: Speci men Type: BLOOD SPECIMENOrdering Facility: [facility] Address: [address] [place] [address] Performed By: #### 5 7021-8 ####[facility] LABCLIA [id number] [place] [address] WBC (Bld) [#/Vol] 5.60 10*3/uL Normal 3.70-11.00 [facility] Comment on above: Order Comment: Speci men Type: BLOOD SPECIMENOrdering Facility: [facility] Address: [facility] [place] [address] Performed By: #### 5 7021-8 ####[facility] LABCLIA [id number] [place] [address] CNOVSPon 10-20-2023 CNOVSP Normal [facility] metabolic 2000 panelon 10-20-2023 Albumin [Mass/Vol] 4.6 g/dL 3.9 - 4.9 g/dL [facility] ALP [Catalytic activity/Vol] 55 U/L 38 - 113 U/L [facility] ALT [Catalytic activity/Vol] 48 U/L 10 - 54 U/L [facility] Anion gap [Moles/Vol] 15 mmol/L 9 - 18 mmol/L [facility] AST [Catalytic activity/Vol] 30 U/L 14 - 40 U/L [facility] Bilirubin [Mass/Vol] 0.6 mg/dL 0.2 - 1.3 mg/dL [facility] Calcium [Mass/Vol] 10.9 mg/dL High 8.5 - 10.2 mg/dL [facility] Chloride [Moles/Vol] 105 mmol/L 97 - 105 mmol/L [facility] CO2 [Moles/Vol] 26 mmol/L 22 - 30 mmol/L [facility] Creatinine [Mass/Vol] 1.28 mg/dL High 0.73 - 1.22 mg/dL [facility] Estimated Glomerular Filtration Rate 62 mL/min/1.73m >=60 mL/min/1.73m [facility] Glucose [Mass/Vol] 95 mg/dL 74 - 99 mg/dL [facility] Potassium [Moles/Vol] 4.2 mmol/L 3.7 - 5.1 mmol/L [facility] Protein [Mass/Vol] 8.0 g/dL 6.3 - 8.0 g/dL [facility] Sodium [Moles/Vol] 146 mmol/L High 136 - 144 mmol/L [facility] Urea nitrogen [Mass/Vol] 25 mg/dL High 9 - 24 mg/dL [facility] Albumin [Mass/Vol] 4.6 g/dL Normal 3.9-4.9 [facility] Comment on above: Order Comment: Speci men Type: BLOOD SPECIMENOrdering Facility: [facility] Address: [address] [place] [address] Performed By: #### 2 4323-8 ####[facility] LABCLIA [id number] [place] [address] ALP [Catalytic activity/Vol] 55 U/L Normal 38-113 [facility] Comment on above: Order Comment: Speci men Type: BLOOD SPECIMENOrdering Facility: [facility] Address: [address] [place] [address] Performed By: #### 2 4323-8 ####[facility] LABCLIA [id number] [place] [address] ALT [Catalytic activity/Vol] 48 U/L Normal 10-54 [facility] Comment on above: Order Comment: Speci men Type: BLOOD SPECIMENOrdering Facility: [facility] Address: [address] [place] [address] Performed By: #### 2 4323-8 ####[facility] LABCLIA [id number] [place] [address] Anion gap [Moles/Vol] 15 mmol/L Normal 9-18 [facility] Comment on above: Order Comment: Speci men Type: BLOOD SPECIMENOrdering Facility: [facility] Address: [address] [place] [address] Performed By: #### 2 4323-8 ####[facility] LABCLIA [id number] [place] [address] AST [Catalytic activity/Vol] 30 U/L Normal 14-40 [facility] Comment on above: Order Comment: Speci men Type: BLOOD SPECIMENOrdering Facility: [facility] Address: [address] [place] [address] Performed By: #### 2 4323-8 ####[facility] LABCLIA [id number] [place] [address] Bilirubin [Mass/Vol] 0.6 mg/dL Normal 0.2-1.3 [facility] Comment on above: Order Comment: Speci men Type: BLOOD SPECIMENOrdering Facility: [facility] Address: [address] [place] [address] Performed By: #### 2 4323-8 ####[facility] LABCLIA [id number] [place] [address] Calcium [Mass/Vol] 10.9 mg/dL High 8.5-10.2 [facility] Comment on above: Order Comment: Speci men Type: BLOOD SPECIMENOrdering Facility: [facility] Address: [address] [place] [address] Result Comment: RECH ECKED JT Performed By: #### 2 4323-8 ####[facility] LABCLIA [id number] [place] [address] Chloride [Moles/Vol] 105 mmol/L Normal 97-105 [facility] Comment on above: Order Comment: Speci men Type: BLOOD SPECIMENOrdering Facility: [facility] Address: [address] [place] [address] Performed By: #### 2 4323-8 ####[facility] LABCLIA [id number] [place] [address] CO2 [Moles/Vol] 26 mmol/L Normal 22-30 [facility] Comment on above: Order Comment: Speci men Type: BLOOD SPECIMENOrdering Facility: [facility] Address: [address] [place] [address] Performed By: #### 2 4323-8 ####[facility] LABCLIA [id number] [place] [address] Creatinine [Mass/Vol] 1.28 mg/dL High 0.73-1.22 [facility] Comment on above: Order Comment: Ajay rausch Type: BLOOD SPECIMENOrdering Facility: [facility] Address: [address] [place] [address] Performed By: #### 2 4323-8 ####[facility] LABCLIA [id number] [place] [address] Creatinine and Glomerular filtration rate.predicted panel (S/P/Bld) 62 mL/min/1.73m??? Normal >=60 [facility] Comment on above: Order Comment: Ajay rausch Type: BLOOD SPECIMENOrdering Facility: [facility] Address: [address] [place] [address] Result Comment: Landy mated Glomerular Filtration Rate [...] actual GFR. Performed By: #### 2 4323-8 ####[facility] LABIA [id number] [place] [address] Glucose [Mass/Vol] 95 mg/dL Normal 74-99 [facility] Comment on above: Order Comment: Ajay rausch Type: BLOOD SPECIMENOrdering Facility: [facility] Address: [address] [place], [place] [address] Result Comment: The [place] [employer] (ADA) provides guidance for cutoff [...] Standards of Medical Care in Diabetes 2016, [place] [employer]. Diabetes Care. 2016.39(Suppl 1). Performed By: #### 2 4323-8 ####[facility] LABCLIA [id number] [place] [address] Potassium [Moles/Vol] 4.2 mmol/L Normal 3.7-5.1 [facility] Comment on above: Order Comment: Speci men Type: BLOOD SPECIMENOrdering Facility: [facility] Address: [address] [place], [place] [address] Performed By: #### 2 4323-8 ####[facility] LABIA [id number] [place] [address] Protein [Mass/Vol] 8.0 g/dL Normal 6.3-8.0 [facility] Comment on above: Order Comment: Speci men Type: BLOOD SPECIMENOrdering Facility: [facility] Address: [address] [place] [address] Performed By: #### 2 4323-8 ####[facility] LABCLIA [id number] [place] [address] Sodium [Moles/Vol] 146 mmol/L High 136-144 [facility] Comment on above: Order Comment: Speci men Type: BLOOD SPECIMENOrdering Facility: [facility] Address: [address] [place] [address] Performed By: #### 2 4323-8 ####[facility] LABCLIA [id number] [place] [address] Urea nitrogen [Mass/Vol] 25 mg/dL High 9-24 [facility] Comment on above: Order Comment: Speci men Type: BLOOD SPECIMENOrdering Facility: [facility] Address: [address] [place] [address] Performed By: #### 2 4323-8 ####[facility] LABCLIA [id number] [place] [address] TSH BLDon 10-20-2023 TSH Qn 4.200 m[IU]/L 0.270 - 4.200 mIU/L Cl [facility] TSH SerPl-aCncon 10-20-2023 TSH Qn 4.200 m[IU]/L Normal 0.270-4.200 [facility] Comment on above: Order Comment: Speci men Type: BLOOD SPECIMENOrdering Facility: [facility] Address: [address] [place], [place] [address] Performed By: #### 3 016-3 ####[facility] LABCLIA [id number] [address] [id number] [address] [facility] Ambulatory Visit Summaryon 0 10-15-2023 Ambulatory Visit Summary CRISTAL GU :1955 Visit Date:10/15/2023 Ambulatory Visit Instructions [...] 11:20 AM EDT With: Enrique Austin Where: [facility] [place] Normal [address] [place] [address]- \.br\ Medications\.br\ What How Much When Instructions\.br\ Unchanged alprazolam (alprazolam 0.25 mg Tab) 1 Tablets By Mouth 3 times a day as needed for for anxiety\.br\ Unchanged amoxicillin (amoxicillin 875 mg Tab) 1 Tablets By Mouth 2 times a day Duration: 10 Days Pickup at [facility]\.br\ Unchanged atorvastatin (atorvastatin 40 mg Tab) [...] 90 tab(s), 0 Refill(s) \.br\ Pharmacy Information\.br\ [facility]: [address] [place], [place] [id number] [phone]\.br\ Medications and Immunizations Administered\.br\ Given\.br\ triamcinolone acetonide [...] for choosing us for your care.\.br\ \.br\ [facility] Consenton 10-15-2023 Consent [id number] #1.00TIFF Normal [facility] Medicine Office/Clini c Noteon 10-15-2023 [facility] Medicine Office/Clinic Note HPI Staff Cristal is a 68 year old male presenting [...] anxiety, # 30 tab(s), Refills(s) 0, Pharmacy: [facility], 169.6, cm, 03/17/23 10:54:00 EDT, Height/Length Dosing, 62, kg, 03/17/23 10:54:00 EDT, Weight Dosing amoxicillin, 875 mg = 1 tab(s), Oral, BID, X 10 day(s), # 20 tab(s), Refills(s) 0, Pharmacy: [facility], 169.5, cm, 10/15/23 11:53:00 EDT, Height/Length [...] (COVID-19) mRNA-1273 vaccine 11/15/[address] [facility] Comment on above: Result Comment: Elec tronically Signed By: Enrique Austin\.br\Date and Time Signed: 10/15/23 12:20 EDT Ambulatory Visit Summaryon 0 10-08-2023 Ambulatory Visit Summary CRISTAL GU :1955 Visit Date:10/08/2023 Ambulatory Visit Instructions [...] 11:20 AM EDT With: Enrique Austin Where: [facility] Normal [address] [place] [address]- \.br\ Medications\.br\ What How Much When Instructions\.br\ Unchanged alprazolam (alprazolam 0.25 mg Tab) 1 Tablets By Mouth 3 times a day as needed for for anxiety Pickup at [facility]\.br\ Unchanged alprazolam (alprazolam 0.25 mg Tab) [...] 90 tab(s), 0 Refill(s) \.br\ Pharmacy Information\.br\ [facility]: [address] [place], [place] [id number] [phone]\.br\ Allergies\.br\ No Known Allergies\.br\ Problems\.br\ Ongoing - [...] choosing us for your care.\.br\ \.br\ [facility] Medicine Office/Clini c Noteon 10-08-2023 Family Medicine Office/Clinic Note HPI Staff Cristal is a 68 year old male presenting [...] days., # 45 tab(s), Refills(s) 0, Pharmacy: [facility], 169.5, cm, 09/02/23 11:42:00 EST, Height/Anuj... Orders: alprazolam, 0.25 mg = 1 tab(s), Oral, TID, PRN for anxiety, # 90 tab(s), Refills(s) 0, Pharmacy: [facility], 169.5, cm, 10/08/23 9:02:00 EDT, Height/Length [...] SARS-CoV-2 (COVID-19) mRNA-1273 vaccine 11/15/2020 Recorded Normal [facility] Comment on above: Result Comment: Elec tronically Signed By: Enrique Austin\.br\Date and Time Signed: 10/08/23 09:14 EDT Medication Consenton 024 Medication Consent [id number] #1.00TIFF Normal [facility] CBC W Auto Differential pane l (Bld)on 09-22-2023 Basophils (Bld) [#/Vol] 0.03 10*3/uL <0.11 k/uL [facility] Basophils/100 WBC (Bld) 0.7 % [facility] Differential cell count method Nom (Bld) Auto [facility] Eosinophils (Bld) [#/Vol] 0.05 10*3/uL <0.46 k/uL [facility] Eosinophils/100 WBC (Bld) 1.2 % [facility] Erythrocyte distribution width (RBC) [Ratio] 17.0 % High 11.5 - 15.0 % [facility] Hematocrit (Bld) [Volume fraction] 40.7 % 39.0 - 51.0 % [facility] Hemoglobin (Bld) [Mass/Vol] 13.5 g/dL 13.0 - 17.0 g/dL [facility] Immature granulocytes (Bld) [#/Vol] 0.03 10*3/uL <0.10 k/uL [facility] Immature granulocytes/100 WBC (Bld) 0.7 % [facility] Lymphocytes (Bld) [#/Vol] 0.87 10*3/uL Low 1.00 - 4.00 k/uL [facility] Lymphocytes/100 WBC (Bld) 21.6 % [facility] MCH (RBC) [Entitic mass] 30.2 pg 26.0 - 34.0 pg [facility] MCHC (RBC) [Mass/Vol] 33.2 g/dL 30.5 - 36.0 g/dL [facility] MCV (RBC) [Entitic vol] 91.1 fL 80.0 - 100.0 fL [facility] Monocytes (Bld) [#/Vol] 0.73 10*3/uL <0.87 k/uL [facility] Monocytes/100 WBC (Bld) 18.1 % [facility] Neutrophils (Bld) [#/Vol] 2.32 10*3/uL 1.45 - 7.50 k/uL [facility] Neutrophils/100 WBC (Bld) 57.7 % [facility] Nucleated RBC (Bld) [#/Vol] <0.01 k/uL [facility] Nucleated RBC/100 WBC (Bld) [Ratio] 0.0 /100 WBC [facility] Platelet mean volume (Bld) [Entitic vol] 11.0 fL 9.0 - 12.7 fL [facility] Platelets (Bld) [#/Vol] 180 10*3/uL 150 - 400 k/uL [facility] RBC (Bld) [#/Vol] 4.47 10*6/uL 4.20 - 6.00 m/uL [facility] WBC (Bld) [#/Vol] 4.03 10*3/uL 3.70 - 11.00 k/u L [facility] Basophils (Bld) [#/Vol] 0.03 10*3/uL Normal <0.11 [facility] Comment on above: Order Comment: Speci men Type: BLOOD SPECIMENOrdering Facility: [facility] Address: [address] [place] [address] Performed By: #### 5 7021-8 ####[facility] LABCLIA [id number] [place] [address] Basophils/100 WBC (Bld) 0.7 % Normal [facility] Comment on above: Order Comment: Speci men Type: BLOOD SPECIMENOrdering Facility: [facility] Address: [address] [place] [address] Performed By: #### 5 7021-8 ####[facility] LABCLIA [id number] [place] [address] Differential cell count method Nom (Bld) Auto Normal [facility] Comment on above: Order Comment: Speci men Type: BLOOD SPECIMENOrdering Facility: [facility] Address: [address] [place] [address] Performed By: #### 5 7021-8 ####[facility] LABCLIA [id number] [place] [address] Eosinophils (Bld) [#/Vol] 0.05 10*3/uL Normal <0.46 [facility] Comment on above: Order Comment: Speci men Type: BLOOD SPECIMENOrdering Facility: [facility] Address: [address] [place] [address] Performed By: #### 5 7021-8 ####[facility] LABCLIA [id number] [place] [address] Eosinophils/100 WBC (Bld) 1.2 % Normal [facility] Comment on above: Order Comment: Speci men Type: BLOOD SPECIMENOrdering Facility: [facility] Address: [address] [place] [address] Performed By: #### 5 7021-8 ####[facility] LABCLIA [id number] [place] [address] Erythrocyte distribution width (RBC) [Ratio] 17.0 % High 11.5-15.0 [facility] Comment on above: Order Comment: Speci men Type: BLOOD SPECIMENOrdering Facility: [facility] Address: [address] [place] [address] Performed By: #### 5 7021-8 ####[facility] LABCLIA [id number] [place] [address] Hematocrit (Bld) [Volume fraction] 40.7 % Normal 39.0-51.0 [facility] Comment on above: Order Comment: Speci men Type: BLOOD SPECIMENOrdering Facility: [facility] Address: [address] [place] [address] Performed By: #### 5 7021-8 ####[facility] LABCLIA [id number] [place] [address] Hemoglobin (Bld) [Mass/Vol] 13.5 g/dL Normal 13.0-17.0 [facility] Comment on above: Order Comment: Speci men Type: BLOOD SPECIMENOrdering Facility: [facility] Address: [address] [place] [address] Performed By: #### 5 7021-8 ####[facility] LABCLIA [id number] [place] [address] Immature granulocytes (Bld) [#/Vol] 0.03 10*3/uL Normal <0.10 [facility] Comment on above: Order Comment: Speci men Type: BLOOD SPECIMENOrdering Facility: [facility] Address: [address] [place] [address] Performed By: #### 5 7021-8 ####[facility] LABCLIA [id number] [place] [address] Immature granulocytes/100 WBC (Bld) 0.7 % Normal [facility] Comment on above: Order Comment: Speci men Type: BLOOD SPECIMENOrdering Facility: [facility] Address: [address] [place] [address] Performed By: #### 5 7021-8 ####[facility] LABCLIA [id number] [place] [address] Lymphocytes (Bld) [#/Vol] 0.87 10*3/uL Low 1.00-4.00 [facility] Comment on above: Order Comment: Speci men Type: BLOOD SPECIMENOrdering Facility: [facility] Address: [address] [place] [address] Performed By: #### 5 7021-8 ####[facility] LABCLIA [id number] [place] [address] Lymphocytes/100 WBC (Bld) 21.6 % Normal [facility] Comment on above: Order Comment: Speci men Type: BLOOD SPECIMENOrdering Facility: [facility] Address: [address] [place] [address] Performed By: #### 5 7021-8 ####[facility] LABCLIA [id number] [place] [address] MCH (RBC) [Entitic mass] 30.2 pg Normal 26.0-34.0 [facility] Comment on above: Order Comment: Speci men Type: BLOOD SPECIMENOrdering Facility: [facility] Address: [address] [place] [address] Performed By: #### 5 7021-8 ####[facility] LABCLIA [id number] [place] [address] MCHC (RBC) [Mass/Vol] 33.2 g/dL Normal 30.5-36.0 [facility] Comment on above: Order Comment: Speci men Type: BLOOD SPECIMENOrdering Facility: [facility] Address: [address] [place] [address] Performed By: #### 5 7021-8 ####[facility] LABCLIA [id number] [place] [address] MCV (RBC) [Entitic vol] 91.1 fL Normal 80.0-100.0 [facility] Comment on above: Order Comment: Speci men Type: BLOOD SPECIMENOrdering Facility: [facility] Address: [address] [place] [address] Performed By: #### 5 7021-8 ####[facility] LABCLIA [id number] [place] [address] Monocytes (Bld) [#/Vol] 0.73 10*3/uL Normal <0.87 [facility] Comment on above: Order Comment: Speci men Type: BLOOD SPECIMENOrdering Facility: [facility] Address: [address] [place] [address] Performed By: #### 5 7021-8 ####[facility] LABCLIA [id number] [place] [address] Monocytes/100 WBC (Bld) 18.1 % Normal [facility] Comment on above: Order Comment: Speci men Type: BLOOD SPECIMENOrdering Facility: [facility] Address: [address] [place] [address] Performed By: #### 5 7021-8 ####[facility] LABCLIA [id number] [place] [address] Neutrophils (Bld) [#/Vol] 2.32 10*3/uL Normal 1.45-7.50 [facility] Comment on above: Order Comment: Speci men Type: BLOOD SPECIMENOrdering Facility: [facility] Address: [address] [place] [address] Performed By: #### 5 7021-8 ####[facility] LABCLIA [id number] [place] [address] Neutrophils/100 WBC (Bld) 57.7 % Normal [facility] Comment on above: Order Comment: Speci men Type: BLOOD SPECIMENOrdering Facility: [facility] Address: [address] [place] [address] Performed By: #### 5 7021-8 ####[facility] LABCLIA [id number] [place] [address] Nucleated RBC (Bld) [#/Vol] 10*3/uL Normal <0.01 [facility] Comment on above: Order Comment: Speci men Type: BLOOD SPECIMENOrdering Facility: [facility] Address: [address] [place] [address] Performed By: #### 5 7021-8 ####[facility] LABCLIA [id number] [place] [address] Nucleated RBC/100 WBC (Bld) [Ratio] 0.0 /100 WBC Normal [facility] Comment on above: Order Comment: Speci men Type: BLOOD SPECIMENOrdering Facility: [facility] Address: [address] [place] [address] Performed By: #### 5 7021-8 ####[facility] LABCLIA [id number] [place] [address] Platelet mean volume (Bld) [Entitic vol] 11.0 fL Normal 9.0-12.7 [facility] Comment on above: Order Comment: Speci men Type: BLOOD SPECIMENOrdering Facility: [facility] Address: [address] [place] [address] Performed By: #### 5 7021-8 ####[facility] LABCLIA [id number] [place] [address] Platelets (Bld) [#/Vol] 180 10*3/uL Normal 150-400 [facility] Comment on above: Order Comment: Speci men Type: BLOOD SPECIMENOrdering Facility: [facility] Address: [address] [place] [address] Performed By: #### 5 7021-8 ####[facility] LABCLIA [id number] [place] [address] RBC (Bld) [#/Vol] 4.47 10*6/uL Normal 4.20-6.00 [facility] Comment on above: Order Comment: Speci men Type: BLOOD SPECIMENOrdering Facility: [facility] Address: [address] [place] [address] Performed By: #### 5 7021-8 ####[facility] LABCLIA [id number] [place] [address] WBC (Bld) [#/Vol] 4.03 10*3/uL Normal 3.70-11.00 [facility] Comment on above: Order Comment: Speci men Type: BLOOD SPECIMENOrdering Facility: [facility] Address: [address] [place] [address] Performed By: #### 5 7021-8 ####[facility] LABIA [id number] [place] [address] CNCNPATEDon 09-22-2023 CNCNPATED Normal [facility] CNOVSPon 09-22-2023 CNOVSP Normal [facility] Comprehensive metabolic 2000 panelon 09-22-2023 Albumin [Mass/Vol] 4.4 g/dL 3.9 - 4.9 g/dL [facility] ALP [Catalytic activity/Vol] 47 U/L 38 - 113 U/L [facility] ALT [Catalytic activity/Vol] 19 U/L 10 - 54 U/L [facility] Anion gap [Moles/Vol] 15 mmol/L 9 - 18 mmol/L [facility] AST [Catalytic activity/Vol] 24 U/L 14 - 40 U/L [facility] Bilirubin [Mass/Vol] 0.4 mg/dL 0.2 - 1.3 mg/dL [facility] Calcium [Mass/Vol] 10.1 mg/dL 8.5 - 10.2 mg/dL [facility] Chloride [Moles/Vol] 100 mmol/L 97 - 105 mmol/L [facility] CO2 [Moles/Vol] 25 mmol/L 22 - 30 mmol/L [facility] Creatinine [Mass/Vol] 1.38 mg/dL High 0.73 - 1.22 mg/dL [facility] Estimated Glomerular Filtration Rate 56 mL/min/1.73m Low >=60 mL/min/1.73m [facility] Glucose [Mass/Vol] 107 mg/dL High 74 - 99 mg/dL [facility] Potassium [Moles/Vol] 4.3 mmol/L 3.7 - 5.1 mmol/L [facility] Protein [Mass/Vol] 7.6 g/dL 6.3 - 8.0 g/dL [facility] Sodium [Moles/Vol] 140 mmol/L 136 - 144 mmol/L [facility] Urea nitrogen [Mass/Vol] 30 mg/dL High 9 - 24 mg/dL [facility] Albumin [Mass/Vol] 4.4 g/dL Normal 3.9-4.9 [facility] Comment on above: Order Comment: Speci men Type: BLOOD SPECIMENOrdering Facility: [facility] Address: [address] [place] [address] Performed By: #### 2 4323-8 ####[facility] LABCLIA [id number] [place] [address] ALP [Catalytic activity/Vol] 47 U/L Normal 38-113 [facility] Comment on above: Order Comment: Speci men Type: BLOOD SPECIMENOrdering Facility: [facility] Address: [address] [place] [address] Performed By: #### 2 4323-8 ####[facility] LABCLIA [id number] [place] [address] ALT [Catalytic activity/Vol] 19 U/L Normal 10-54 [facility] Comment on above: Order Comment: Speci men Type: BLOOD SPECIMENOrdering Facility: [facility] Address: [address] [place] [address] Performed By: #### 2 4323-8 ####[facility] LABCLIA [id number] [place] [address] Anion gap [Moles/Vol] 15 mmol/L Normal 9-18 [facility] Comment on above: Order Comment: Speci men Type: BLOOD SPECIMENOrdering Facility: [facility] Address: [address] [place] [address] Performed By: #### 2 4323-8 ####[facility] LABCLIA [id number] [place] [address] AST [Catalytic activity/Vol] 24 U/L Normal 14-40 [facility] Comment on above: Order Comment: Speci men Type: BLOOD SPECIMENOrdering Facility: [facility] Address: [address] [place] [address] Performed By: #### 2 4323-8 ####[facility] LABCLIA [id number] [place] [address] Bilirubin [Mass/Vol] 0.4 mg/dL Normal 0.2-1.3 [facility] Comment on above: Order Comment: Speci men Type: BLOOD SPECIMENOrdering Facility: [facility] Address: [address] [place] [address] Performed By: #### 2 4323-8 ####[facility] LABCL[facility] [id number] [place] [address] Calcium [Mass/Vol] 10.1 mg/dL Normal 8.5-10.2 [facility] Comment on above: Order Comment: Speci men Type: BLOOD SPECIMENOrdering Facility: [facility] Address: [address] [place] [address] Performed By: #### 2 4323-8 ####[facility] LABCLIA [id number] [place] [address] Chloride [Moles/Vol] 100 mmol/L Normal 97-105 [facility] Comment on above: Order Comment: Speci men Type: BLOOD SPECIMENOrdering Facility: [facility] Address: [address] [place] [address] Performed By: #### 2 4323-8 ####[facility] LABCLIA [id number] [place] [address] CO2 [Moles/Vol] 25 mmol/L Normal 22-30 [facility] Comment on above: Order Comment: Speci men Type: BLOOD SPECIMENOrdering Facility: [facility] Address: [address] [place] [address] Performed By: #### 2 4323-8 ####[facility] LABCLIA [id number] [place] [address] Creatinine [Mass/Vol] 1.38 mg/dL High 0.73-1.22 [facility] Comment on above: Order Comment: Speci men Type: BLOOD SPECIMENOrdering Facility: [facility] Address: [address] [place] [address] Performed By: #### 2 4323-8 ####[facility] LABCLIA [id number] [place] [address] Creatinine and Glomerular filtration rate.predicted panel (S/P/Bld) 56 mL/min/1.73m??? Low >=60 [facility] Comment on above: Order Comment: Speci men Type: BLOOD SPECIMENOrdering Facility: [facility] Address: [address] [place] [address] Result Comment: Landy mated Glomerular Filtration Rate [...] actual GFR. Performed By: #### 2 4323-8 ####[facility] LABCLIA [id number] [place] [address] Glucose [Mass/Vol] 107 mg/dL High 74-99 [facility] Comment on above: Order Comment: Speci men Type: BLOOD SPECIMENOrdering Facility: [facility] Address: [address] [place] [address] Result Comment: The [place] [employer] (ADA) provides guidance for cutoff [...] Standards of Medical Care in Diabetes 2016, [place] [employer]. Diabetes Care. 2016.39(Suppl 1). Performed By: #### 2 4323-8 ####[facility] LABCLIA [id number] [place] [address] Potassium [Moles/Vol] 4.3 mmol/L Normal 3.7-5.1 [facility] Comment on above: Order Comment: Speci men Type: BLOOD SPECIMENOrdering Facility: [facility] Address: [address] [place] [address] Performed By: #### 2 4323-8 ####[facility] LABCLIA [id number] [place] [address] Protein [Mass/Vol] 7.6 g/dL Normal 6.3-8.0 [facility] Comment on above: Order Comment: Speci men Type: BLOOD SPECIMENOrdering Facility: [facility] Address: [address] [place] [address] Performed By: #### 2 4323-8 ####[facility] LABCLIA [id number] [place] [address] Sodium [Moles/Vol] 140 mmol/L Normal 136-144 [facility] Comment on above: Order Comment: Speci men Type: BLOOD SPECIMENOrdering Facility: [facility] Address: [address] [place] [address] Performed By: #### 2 4323-8 ####[facility] LABCLIA [id number] [place] [address] Urea nitrogen [Mass/Vol] 30 mg/dL High 9-24 [facility] Comment on above: Order Comment: Speci men Type: BLOOD SPECIMENOrdering Facility: [facility] Address: [address] [place] [address] Performed By: #### 2 4323-8 ####[facility] LABCLIA [id number] [place] [address] T4/FTI/T4Uon 09-22-2023 FTI 7.1 ug/dL 5.3 - 10.8 ug/dL [facility] T4 [Mass/Vol] 6.1 ug/dL 5.5 - 10.2 ug/dL [facility] T4 uptake [Mass/Vol] 0.86 Low 0.91 - 1.19 [facility] FTI 7.1 ug/dL Normal 5.3-10.8 [facility] Comment on above: Order Comment: Speci men Type: BLOOD SPECIMENOrdering Facility: [facility] Address: [address] [place] [address] Performed By: #### Lexi CHAN, 3015-3 ####[facility] LABCLIA [id number] [place] [address] [place] T4 [Mass/Vol] 6.1 ug/dL Normal 5.5-10.2 [facility] Comment on above: Order Comment: Speci men Type: BLOOD SPECIMENOrdering Facility: [facility] Address: [address] [place] [address] Performed By: #### Lexi CHAN, 3015-09 ####[facility] LABCLIA [id number] [place] [address] [place] T4 uptake [Mass/Vol] 0.86 Low 0.91-1.19 [facility] Comment on above: Order Comment: Speci men Type: BLOOD SPECIMENOrdering Facility: [facility] Address: [address] [place] [address] Performed By: #### Lexi CHAN, 3015-09 ####[facility] LABCLIA [id number] [place] [address] [place] TSH BLDon 09-22-2023 TSH Qn 14.500 m[IU]/L High 0.270 - 4.200 mIU/L [facility] TSH SerPl-aCncon 09-22-2023 TSH Qn 14.500 m[IU]/L High 0.270-4.200 [facility] Comment on above: Order Comment: Speci men Type: BLOOD SPECIMENOrdering Facility: [facility] Address: [address] [place] [address] Performed By: #### Lexi CHAN, [id number] ####[facility] LABCLIA [id number] [place] [address] [place] NM PET/CT SKULL-THIGH SUBQon 09-15-2023 NM PET/CT SKULL-THIGH SUBQ Normal [facility] Physician Referralon 024 Physician Referral [id number] #[id number] Normal [facility] Ambulatory Visit Summaryon 0 09-02-2023 Ambulatory Visit Summary CRISTAL GU :1955 Visit Date:09/02/2023 Ambulatory Visit Instructions [...] 8:40 AM EDT With: Enrique Austin [facility]: [facility] [facility] Normal [address] [place] [address]- \.br\ Medications\.br\ What How Much When Why Instructions\.br\ New predniSONE (predniSONE 10 mg Tab) 1 Dose Separtor By Mouth As Directed Rash BMI 21.0-21.9, adult Former smoker Take 5 tabs by mouth daily x3 days, 4 daily x3 days, 3 daily x3 days, 2 daily x3 days, then 1 tab daily x3 days. Pickup at [facility]\.br\ Unchanged alprazolam (alprazolam 0.25 mg Tab) [...] 90 tab(s), 0 Refill(s) \.br\ Pharmacy Information\.br\ [facility]: [address] [place], [place] [id number] [phone]\.br\ Allergies\.br\ No Known Allergies\.br\ Problems\.br\ Ongoing - [...] your care.\.br\ \.br\ [facility] Family Medicine Office/Clini c Noteon 09-02-2023 Family Medicine Office/Clinic Note HPI Staff Vasquez is a 68 year old male presenting [...] spread this week. 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 triamcinolone topical, 1 duong, Topical, BID, 20 gram, Refill(s) 0, [facility], 169.5, cm, 08/20/23 11:52:00 EST, Height/Length Dosing, 63.1, kg, 08/20/23 11:52:00 EST, Weight Dosing [facility] [place] Ambulatory Referral 2. BMI 21.0-21.9, adult (Z68.21: Body mass index [BMI] 21.0-21.9, adult) BMI education complete Ordered: cephalexin, 500 mg = 1 cap(s), Oral, q12hr, # 20 cap(s), Refills(s) 0, Pharmacy: [facility], 169.5, cm, 08/20/23 11:52:00 EST, Height/Length Dosing, 63.1, kg, 08/20/23 11:52:00 EST, Weight Dosing predniSONE, 0 = 1 -, Oral, As Directed, Take 5 tabs by mouth daily x3 days, 4 daily x3 days, 3 daily x3 days, 2 daily x3 days, then 1 tab daily x3 days., # 45 tab(s), Refills(s) 0, Pharmacy: [facility], 169.5, cm, 09/02/23 11:42:00 EST, Height/Anuj... triamcinolone topical, 1 duong, Topical, BID, 20 gram, Refill(s) 0, [facility], 169.5, cm, 08/20/23 11:52:00 EST, Height/Length Dosing, 63.1, kg, 08/20/23 11:52:00 EST, Weight Dosing [facility] [place] [facility]ulatory Referral 3. Former smoker (Z87.891: Personal history of nicotine dependence) continue not smoking Ordered: predniSONE, 0 = 1 -, Oral, As Directed, Take 5 tabs by mouth daily x3 days, 4 daily x3 days, 3 daily x3 days, 2 daily x3 days, then 1 tab daily x3 days., # 45 tab(s), Refills(s) 0, Pharmacy: [facility], 169.5, cm, 09/02/23 11:42:00 EST, Height/Anuj... [facility] External Ambulatory Referral Orders: alprazolam, 0.25 mg = 1 tab(s), Oral, TID, PRN for anxiety, # 60 tab(s), Refills(s) 0, Pharmacy: [facility], 169.6, cm, 07/23/23 10:23:00 EST, Height/Length Dosing, 63, kg, 07/23/23 10:23:00 EST, Weight Dosing methylPREDNISolone, = 1 packet(s), Oral, Once, as directed on package labeling, # 21 tab(s), Refills(s) 0, Pharmacy: [facility], 169.6, cm, 07/23/23 10:23:00 EST, Height/Length Dosing, 63, kg, 07/23/23 10:23:00 EST, Weight Dosing Follow-up No qualifying data available Problem List/Past Medical History Ongoing Anxiety CAD (coronary artery disease) Chest congestion Emphysema lung Fluid level behind tympanic membrane of both ears Insomnia Lung cancer Rash Historical No qualifying data Procedure/Surgical History CABG (Coronary artery bypass grafting) planned (more content not included)... Normal [facility] Comment on above: Result Comment: Elec tronically Signed By: Enrique Austin\.br\Date and Time Signed: 09/02/23 13:02 EST CNPNon 08-26-2023 CNPN Normal [facility] CBC W Auto Differential pane l (Bld)on 08-25-2023 Basophils (Bld) [#/Vol] 0.03 10*3/uL Normal <0.11 [facility] Comment on above: Order Comment: Speci men Type: BLOOD SPECIMENOrdering Facility: [facility] Address: [address] [place] [address] Performed By: #### 5 7021-8 ####[facility] LABCLIA [id number] [place] [address] Basophils/100 WBC (Bld) 0.6 % Normal [facility] Comment on above: Order Comment: Speci men Type: BLOOD SPECIMENOrdering Facility: [facility] Address: [address] [place] [address] Performed By: #### 5 7021-8 ####[facility] LABCLIA [id number] [place] [address] Differential cell count method Nom (Bld) Auto Normal [facility] Comment on above: Order Comment: Speci men Type: BLOOD SPECIMENOrdering Facility: [facility] Address: [address] [place] [address] Performed By: #### 5 7021-8 ####[facility]CLIA [id number] [place] [address] Eosinophils (Bld) [#/Vol] 0.16 10*3/uL Normal <0.46 [facility] Comment on above: Order Comment: Speci men Type: BLOOD SPECIMENOrdering Facility: [facility] Address: [address] [place] [address] Performed By: #### 5 7021-8 ####[facility]CLIA [id number] [place] [address] Eosinophils/100 WBC (Bld) 3.1 % Normal [facility] Comment on above: Order Comment: Speci men Type: BLOOD SPECIMENOrdering Facility: [facility] Address: [address] [place] [address] Performed By: #### 5 7021-8 ####[facility] LABCLIA [id number] [place] [address] Erythrocyte distribution width (RBC) [Ratio] 14.5 % Normal 11.5-15.0 [facility] Comment on above: Order Comment: Speci men Type: BLOOD SPECIMENOrdering Facility: [facility] Address: [address] [place] [address] Performed By: #### 5 7021-8 ####[facility] LABCLIA [id number] [place] [address] Hematocrit (Bld) [Volume fraction] 39.4 % Normal 39.0-51.0 [facility] Comment on above: Order Comment: Speci men Type: BLOOD SPECIMENOrdering Facility: [facility] Address: [address] [place] [address] Performed By: #### 5 7021-8 ####[facility]CLIA [id number] [place] [address] Hemoglobin (Bld) [Mass/Vol] 13.2 g/dL Normal 13.0-17.0 [facility] Comment on above: Order Comment: Speci men Type: BLOOD SPECIMENOrdering Facility: [facility] Address: [address] [place] [address] Performed By: #### 5 7021-8 ####[facility]CLIA [id number] [place] [address] Immature granulocytes (Bld) [#/Vol] 0.03 10*3/uL Normal <0.10 [facility] Comment on above: Order Comment: Speci men Type: BLOOD SPECIMENOrdering Facility: [facility] Address: [address] [place] [address] Performed By: #### 5 7021-8 ####[facility]CLIA [id number] [place] [address] Immature granulocytes/100 WBC (Bld) 0.6 % Normal [facility] Comment on above: Order Comment: Speci men Type: BLOOD SPECIMENOrdering Facility: [facility] Address: [address] [place] [address] Performed By: #### 5 7021-8 ####[facility]CLIA [id number] [place] [address] Lymphocytes (Bld) [#/Vol] 1.08 10*3/uL Normal 1.00-4.00 [facility] Comment on above: Order Comment: Speci men Type: BLOOD SPECIMENOrdering Facility: [facility] Address: [address] [place] [address] Performed By: #### 5 7021-8 ####[facility]CLIA [id number] [place] [address] Lymphocytes/100 WBC (Bld) 20.8 % Normal [facility] Comment on above: Order Comment: Speci men Type: BLOOD SPECIMENOrdering Facility: [facility] Address: [address] [place] [address] Performed By: #### 5 7021-8 ####[facility]CLIA [id number] [place] [address] MCH (RBC) [Entitic mass] 30.1 pg Normal 26.0-34.0 [facility] Comment on above: Order Comment: Speci men Type: BLOOD SPECIMENOrdering Facility: [facility] Address: [address] [place] [address] Performed By: #### 5 7021-8 ####[facility] LABCLIA [id number] [place] [address] MCHC (RBC) [Mass/Vol] 33.5 g/dL Normal 30.5-36.0 [facility] Comment on above: Order Comment: Speci men Type: BLOOD SPECIMENOrdering Facility: [facility] Address: [address] [place] [address] Performed By: #### 5 7021-8 ####[facility] LABCLIA [id number] [place] [address] MCV (RBC) [Entitic vol] 90.0 fL Normal 80.0-100.0 [facility] Comment on above: Order Comment: Speci men Type: BLOOD SPECIMENOrdering Facility: [facility] Address: [address] [place] [address] Performed By: #### 5 7021-8 ####[facility] LABCLIA [id number] [place] [address] Monocytes (Bld) [#/Vol] 0.58 10*3/uL Normal <0.87 [facility] Comment on above: Order Comment: Speci men Type: BLOOD SPECIMENOrdering Facility: [facility] Address: [address] [place] [address] Performed By: #### 5 7021-8 ####[facility]CLIA [id number] [place] [address] Monocytes/100 WBC (Bld) 11.2 % Normal [facility] Comment on above: Order Comment: Speci men Type: BLOOD SPECIMENOrdering Facility: [facility] Address: [address] [place] [address] Performed By: #### 5 7021-8 ####[facility] LABCLIA [id number] [place] [address] Neutrophils (Bld) [#/Vol] 3.31 10*3/uL Normal 1.45-7.50 [facility] Comment on above: Order Comment: Speci men Type: BLOOD SPECIMENOrdering Facility: [facility] Address: [address] [place] [address] Performed By: #### 5 7021-8 ####[facility]CLIA [id number] [place] [address] Neutrophils/100 WBC (Bld) 63.7 % Normal [facility] Comment on above: Order Comment: Speci men Type: BLOOD SPECIMENOrdering Facility: [facility] Address: [address] [place] [address] Performed By: #### 5 7021-8 ####[facility] LABCLIA [id number] [place] [address] Nucleated RBC (Bld) [#/Vol] 10*3/uL Normal <0.01 [facility] Comment on above: Order Comment: Speci men Type: BLOOD SPECIMENOrdering Facility: [facility] Address: [address] [place] [address] Performed By: #### 5 7021-8 ####[facility]CLIA [id number] [place] [address] Nucleated RBC/100 WBC (Bld) [Ratio] 0.0 /100 WBC Normal [facility] Comment on above: Order Comment: Speci men Type: BLOOD SPECIMENOrdering Facility: [facility] Address: [address] [place] [address] Performed By: #### 5 7021-8 ####[facility] LABIA [id number] [place] [address] Platelet mean volume (Bld) [Entitic vol] 11.2 fL Normal 9.0-12.7 [facility] Comment on above: Order Comment: Speci men Type: BLOOD SPECIMENOrdering Facility: [facility] Address: [address] [place] [address] Performed By: #### 5 7021-8 ####[facility] LABCLIA [id number] [place] [address] Platelets (Bld) [#/Vol] 206 10*3/uL Normal 150-400 [facility] Comment on above: Order Comment: Speci men Type: BLOOD SPECIMENOrdering Facility: [facility] Address: [address] [place] [address] Performed By: #### 5 7021-8 ####[facility] LABIA [id number] [place] [address] RBC (Bld) [#/Vol] 4.38 10*6/uL Normal 4.20-6.00 [facility] Comment on above: Order Comment: Speci men Type: BLOOD SPECIMENOrdering Facility: [facility] Address: [address] [place] [address] Performed By: #### 5 7021-8 ####[facility] LABCLIA [id number] [place] [address] WBC (Bld) [#/Vol] 5.19 10*3/uL Normal 3.70-11.00 [facility] Comment on above: Order Comment: Speci men Type: BLOOD SPECIMENOrdering Facility: [facility] Address: [address] [place] [address] Performed By: #### 5 7021-8 ####[facility] LABCLIA [id number] [place] [address] CNOVSPon 08-25-2023 CNOVSP Normal [facility] metabolic 2000 panelon 08-25-2023 Albumin [Mass/Vol] 4.4 g/dL Normal 3.9-4.9 [facility] Comment on above: Order Comment: Speci men Type: BLOOD SPECIMENOrdering Facility: [facility] Address: [address] [place] [address] Performed By: #### 2 4323-8 ####[facility] LABCLIA [id number] [place] [address] ALP [Catalytic activity/Vol] 70 U/L Normal 38-113 [facility] Comment on above: Order Comment: Speci men Type: BLOOD SPECIMENOrdering Facility: [facility] Address: [address] [place] [address] Performed By: #### 2 4323-8 ####[facility] LABCLIA [id number] [place] [address] ALT [Catalytic activity/Vol] 25 U/L Normal 10-54 [facility] Comment on above: Order Comment: Speci men Type: BLOOD SPECIMENOrdering Facility: [facility] Address: [address] [place] [address] Performed By: #### 2 4323-8 ####[facility] LABCLIA [id number] [place] [address] Anion gap [Moles/Vol] 13 mmol/L Normal 9-18 [facility] Comment on above: Order Comment: Speci men Type: BLOOD SPECIMENOrdering Facility: [facility] Address: [address] [place] [address] Performed By: #### 2 4323-8 ####[facility] LABCLIA [id number] [place] [address] AST [Catalytic activity/Vol] 33 U/L Normal 14-40 [facility] Comment on above: Order Comment: Speci men Type: BLOOD SPECIMENOrdering Facility: [facility] Address: [address] [place] [address] Performed By: #### 2 4323-8 ####[facility] LABCLIA [id number] [place] [address] Bilirubin [Mass/Vol] 0.3 mg/dL Normal 0.2-1.3 [facility] Comment on above: Order Comment: Speci men Type: BLOOD SPECIMENOrdering Facility: [facility] Address: [address] [place] [address] Performed By: #### 2 4323-8 ####[facility] LABCLIA [id number] [place] [address] Calcium [Mass/Vol] 10.2 mg/dL Normal 8.5-10.2 [facility] Comment on above: Order Comment: Speci men Type: BLOOD SPECIMENOrdering Facility: [facility] Address: [address] [place] [address] Performed By: #### 2 4323-8 ####[facility] LABCLIA [id number] [place] [address] Chloride [Moles/Vol] 102 mmol/L Normal 97-105 [facility] Comment on above: Order Comment: Speci men Type: BLOOD SPECIMENOrdering Facility: [facility] Address: [address] [id number] Performed By: #### 2 4323-8 ####[facility] LABCLIA [id number] [place] [address] CO2 [Moles/Vol] 25 mmol/L Normal 22-30 [facility] Comment on above: Order Comment: Speci men Type: BLOOD SPECIMENOrdering Facility: [facility] Address: [address] [place] [address] Performed By: #### 2 4323-8 ####[facility] LABCLIA [id number] [place] [address] Creatinine [Mass/Vol] 1.19 mg/dL Normal 0.73-1.22 [facility] Comment on above: Order Comment: Speci men Type: BLOOD SPECIMENOrdering Facility: [facility] Address: [address] [place] [address] Performed By: #### 2 4323-8 ####[facility] LABCLIA [id number] [place] [address] Creatinine and Glomerular filtration rate.predicted panel (S/P/Bld) 67 mL/min/1.73m??? Normal >=60 [facility] Comment on above: Order Comment: Speci men Type: BLOOD SPECIMENOrdering Facility: [facility] Address: [address] [place] [address] Result Comment: Landy mated Glomerular Filtration Rate [...] actual GFR. Performed By: #### 2 4323-8 ####[facility] LABCLIA [id number] [place] [address] Glucose [Mass/Vol] 99 mg/dL Normal 74-99 [facility] Comment on above: Order Comment: Speci men Type: BLOOD SPECIMENOrdering Facility: [facility] Address: [address] [id number] Result Comment: The [place] [employer] (ADA) provides guidance for cutoff [...] Standards of Medical Care in Diabetes 2016, [place] [employer]. Diabetes Care. 2016.39(Suppl 1). Performed By: #### 2 4323-8 ####[facility] LABCLIA [id number] [place] [address] Potassium [Moles/Vol] 3.8 mmol/L Normal 3.7-5.1 [facility] Comment on above: Order Comment: Speci [facility] Type: BLOOD SPECIMENOrdering Facility: [facility] Address: [address] [place] [address] Performed By: #### 2 4323-8 ####[facility]CLIA [id number] [place] [address] Protein [Mass/Vol] 7.9 g/dL Normal 6.3-8.0 [facility] Comment on above: Order Comment: Speci men Type: BLOOD SPECIMENOrdering Facility: [facility] Address: [address] [place] [address] Performed By: #### 2 4323-8 ####[facility]CLIA [id number] [place] [address] Sodium [Moles/Vol] 140 mmol/L Normal 136-144 [facility] Comment on above: Order Comment: Speci men Type: BLOOD SPECIMENOrdering Facility: [facility] Address: [address] [id number] Performed By: #### 2 4323-8 ####[facility]CLIA [id number] [place] [address] Urea nitrogen [Mass/Vol] 33 mg/dL High 9-24 [facility] Comment on above: Order Comment: Speci men Type: BLOOD SPECIMENOrdering Facility: [facility] Address: [address] [place] [address] Performed By: #### 2 4323-8 ####[facility] LABCLIA [id number] [place] [address] T4/FTI/T4Uon 08-25-2023 FTI 2.0 ug/dL Low 5.3-10.8 [facility] Comment on above: Order Comment: Speci men Type: BLOOD SPECIMENOrdering Facility: [facility] Address: [address] [place] [address] Performed By: #### 3 016-3, T4FTI ####[facility] LABCLIA [id number] [place] [address] [place] T4 [Mass/Vol] 2.3 ug/dL Low 5.5-10.2 [facility] Comment on above: Order Comment: Speci men Type: BLOOD SPECIMENOrdering Facility: [facility] Address: [address] [place] [address] Performed By: #### 3 016-3, T4FTI ####[facility] LABCLIA [id number] [place] [address] [place] T4 uptake [Mass/Vol] 1.14 Normal 0.91-1.19 [facility] Comment on above: Order Comment: Speci men Type: BLOOD SPECIMENOrdering Facility: [facility] Address: [address] [place] [address] Performed By: #### 3 016-3, T4FTI ####[facility] LABCLIA [id number] [place] [address] [place] TSH SerPl-aCncon 08-25-2023 TSH Qn 109.000 m[IU]/L High 0.270-4.200 Manuel stone [facility] Comment on above: Order Comment: Speci men Type: BLOOD SPECIMENOrdering Facility: [facility] Address: [address] [place] [address] Performed By: #### 3 016-3, T4FTI ####[facility] LABCLIA [id number] [facility] CLINICSChase [facility] EMERGENCYBrielle [address] [place] Ambulatory Visit Summaryon 0 08-20-2023 Ambulatory Visit Summary CRISTAL GU :1955 Visit Date:08/20/2023 Ambulatory Visit Instructions [...] 8:40 AM EDT With: Enrique Austin Where: [facility] Normal [address] [place] [phone]- \.br\ Medications\.br\ What How Much When Why Instructions\.br\ New cephalexin (cephalexin 500 mg Cap) 1 Capsules By Mouth Every 12 hours Rash Lung cancer BMI 21.0-21.9, adult Pickup at [facility]\.br\ New sotorasib (Lumakras 320 mg oral tablet) 90 tab(s), 0 Refill(s) \.br\ New triamcinolone topical (triamcinolone Top 0.5% Crm) 1 Application Topical 2 times a day Rash Lung cancer BMI 21.0-21.9, adult Pickup at [facility]\.br\ Unchanged alprazolam (alprazolam 0.25 mg [...] Tablets By Mouth Every day\.br\ Pharmacy Information\.br\ [facility]: [address] [place], [place] [id number] [phone]\.br\ Allergies\.br\ No Known Allergies\.br\ Problems\.br\ Ongoing - [...] for choosing us for your care.\.br\ \.br\ [facility] [place] 08-20-2023 Consent [id number] #[id number] Normal [facility] Family Medicine Office/Clini c Noteon 08-20-2023 Family [...] q12hr, # 20 cap(s), Refills(s) 0, Pharmacy: [facility], 169.5, cm, 08/20/23 11:52:00 EST, Height/Length Dosing, 63.1, kg, 08/20/23 11:52:00 EST, Weight Dosing triamcinolone, 60 mg = 1.5 mL, Injection, IntraARTICULAR, Once, Stop date 08/20/23 12:17:00 EST, Routine, Start date 08/20/23 12:17:00 EST, 08/20/23 12:17:00 EST triamcinolone topical, 1 duong, Topical, BID, 20 gram, Refill(s) 0, [facility], 169.5, cm, 08/20/23 11:52:00 EST, Height/Length Dosing, 63.1, kg, 08/20/23 11:52:00 EST, Weight Dosing 2. Lung cancer (C34.90: Malignant neoplasm of unspecified part of unspecified bronchus or lung) pt still taking oral treatment Ordered: cephalexin, 500 mg = 1 cap(s), Oral, q12hr, # 20 cap(s), Refills(s) 0, Pharmacy: [facility], 169.5, cm, 08/20/23 11:52:00 EST, Height/Length Dosing, 63.1, kg, 08/20/23 11:52:00 EST, Weight Dosing triamcinolone topical, 1 duong, Topical, BID, 20 gram, Refill(s) 0, [facility], 169.5, cm, 08/20/23 11:52:00 EST, Height/Length Dosing, 63.1, kg, 08/20/23 11:52:00 EST, Weight Dosing 3. BMI 21.0-21.9, adult (Z68.21: Body mass index [BMI] 21.0-21.9, adult) BMI education complete Ordered: cephalexin, 500 mg = 1 cap(s), Oral, q12hr, # 20 cap(s), Refills(s) 0, Pharmacy: [facility], 169.5, cm, 08/20/23 11:52:00 EST, Height/Length Dosing, 63.1, kg, 08/20/23 11:52:00 EST, Weight Dosing triamcinolone topical, 1 duong, Topical, BID, 20 gram, Refill(s) 0, [facility], 169.5, cm, 08/20/23 11:52:00 EST, Height/Length [...] Oral, Daily triamcinolone Top 0.5% Crm, 1 duong, Topical, BID Allergies No Known Allergies Social History Alcohol Beer, 3-5 times per week, Household alcohol concerns: No., 04/16/2023 Tobacco Former smoker, quit more than 30 days ago Tobacco Use:. Cigarettes, Household tobacco concerns: No., 08/20/2023 Family History Primary malignant neoplas (more content not included)... Normal [facility] Comment on above: Result Comment: Elec tronically Signed By: Enrique Austin\chikis\Date and Time Signed: 08/20/23 12:47 EST CNOVon 08-15-2023 CNOV Normal [facility] CNPNon 08-11-2023 CNPN Normal [facility] CNOVon 08-08-2023 CNOV Normal [facility] CBC W Auto Differential pane l (Bld)on 07-28-2023 Basophils (Bld) [#/Vol] 0.03 10*3/uL Normal <0.11 [facility] Comment on above: Order Comment: Speci men Type: BLOOD SPECIMENOrdering Facility: [facility] Address: [address] [place] [address] Performed By: #### 5 7021-8 ####[facility] LABCLIA [id number] [place] [address] Basophils/100 WBC (Bld) 0.4 % Normal [facility] Comment on above: Order Comment: Speci men Type: BLOOD SPECIMENOrdering Facility: [facility] Address: [address] [place] [address] Performed By: #### 5 7021-8 ####[facility] LABCLIA [id number] [place] [address] Differential cell count method Nom (Bld) Auto Normal [facility] Comment on above: Order Comment: Speci men Type: BLOOD SPECIMENOrdering Facility: [facility] Address: [address] [place] [address] Performed By: #### 5 7021-8 ####[facility] LABCLIA [id number] [place] [address] Eosinophils (Bld) [#/Vol] 0.18 10*3/uL Normal <0.46 [facility] Comment on above: Order Comment: Speci men Type: BLOOD SPECIMENOrdering Facility: [facility] Address: [address] [place] [address] Performed By: #### 5 7021-8 ####[facility] LABCLIA [id number] [place] [address] Eosinophils/100 WBC (Bld) 2.6 % Normal [facility] Comment on above: Order Comment: Speci men Type: BLOOD SPECIMENOrdering Facility: [facility] Address: [address] [place] [address] Performed By: #### 5 7021-8 ####[facility] LABCLIA [id number] [place] [address] Erythrocyte distribution width (RBC) [Ratio] 13.2 % Normal 11.5-15.0 [facility] Comment on above: Order Comment: Speci men Type: BLOOD SPECIMENOrdering Facility: [facility] Address: [address] [place] [address] Performed By: #### 5 7021-8 ####[facility] LABCLIA [id number] [place] [address] Hematocrit (Bld) [Volume fraction] 35.5 % Low 39.0-51.0 [facility] Comment on above: Order Comment: Speci men Type: BLOOD SPECIMENOrdering Facility: [facility] Address: [address] [place] [address] Performed By: #### 5 7021-8 ####[facility] LABCLIA [id number] [place] [address] Hemoglobin (Bld) [Mass/Vol] 12.0 g/dL Low 13.0-17.0 [facility] Comment on above: Order Comment: Speci men Type: BLOOD SPECIMENOrdering Facility: [facility] Address: [address] [place] [address] Performed By: #### 5 7021-8 ####[facility] LABCLIA [id number] [place] [address] Immature granulocytes (Bld) [#/Vol] 0.04 10*3/uL Normal <0.10 [facility] Comment on above: Order Comment: Speci men Type: BLOOD SPECIMENOrdering Facility: [facility] Address: [address] [place] [address] Performed By: #### 5 7021-8 ####[facility] LABCLIA [id number] [place] [address] Immature granulocytes/100 WBC (Bld) 0.6 % Normal [facility] Comment on above: Order Comment: Speci men Type: BLOOD SPECIMENOrdering Facility: [facility] Address: [address] [place] [address] Performed By: #### 5 7021-8 ####[facility] LABCLIA [id number] [place] [address] Lymphocytes (Bld) [#/Vol] 1.31 10*3/uL Normal 1.00-4.00 [facility] Comment on above: Order Comment: Speci men Type: BLOOD SPECIMENOrdering Facility: [facility] Address: [address] [place] [address] Performed By: #### 5 7021-8 ####[facility] LABCLIA [id number] [place] [address] Lymphocytes/100 WBC (Bld) 19.2 % Normal [facility] Comment on above: Order Comment: Speci men Type: BLOOD SPECIMENOrdering Facility: [facility] Address: [address] [place] [address] Performed By: #### 5 7021-8 ####[facility] LABCLIA [id number] [place] [address] MCH (RBC) [Entitic mass] 30.4 pg Normal 26.0-34.0 [facility] Comment on above: Order Comment: Speci men Type: BLOOD SPECIMENOrdering Facility: [facility] Address: [address] [place] [address] Performed By: #### 5 7021-8 ####[facility] LABCLIA [id number] [place] [address] MCHC (RBC) [Mass/Vol] 33.8 g/dL Normal 30.5-36.0 [facility] Comment on above: Order Comment: Speci men Type: BLOOD SPECIMENOrdering Facility: [facility] Address: [address] [place] [address] Performed By: #### 5 7021-8 ####[facility] LABCLIA [id number] [place] [address] MCV (RBC) [Entitic vol] 89.9 fL Normal 80.0-100.0 [facility] Comment on above: Order Comment: Speci men Type: BLOOD SPECIMENOrdering Facility: [facility] Address: [address] [place] [address] Performed By: #### 5 7021-8 ####[facility] LABIA [id number] [place] [address] Monocytes (Bld) [#/Vol] 0.77 10*3/uL Normal <0.87 [facility] Comment on above: Order Comment: Speci men Type: BLOOD SPECIMENOrdering Facility: [facility] Address: [address] [place] [address] Performed By: #### 5 7021-8 ####[facility] LABCLIA [id number] [place] [address] Monocytes/100 WBC (Bld) 11.3 % Normal [facility] Comment on above: Order Comment: Speci men Type: BLOOD SPECIMENOrdering Facility: [facility] Address: [address] [place] [address] Performed By: #### 5 7021-8 ####[facility] LABIA [id number] [place] [address] Neutrophils (Bld) [#/Vol] 4.49 10*3/uL Normal 1.45-7.50 [facility] Comment on above: Order Comment: Speci men Type: BLOOD SPECIMENOrdering Facility: [facility] Address: [address] [place] [address] Performed By: #### 5 7021-8 ####[facility] LABCLIA [id number] [place] [address] Neutrophils/100 WBC (Bld) 65.9 % Normal [facility] Comment on above: Order Comment: Speci men Type: BLOOD SPECIMENOrdering Facility: [facility] Address: [address] [place] [address] Performed By: #### 5 7021-8 ####[facility] LABCLIA [id number] [place] [address] Nucleated RBC (Bld) [#/Vol] 10*3/uL Normal <0.01 [facility] Comment on above: Order Comment: Speci men Type: BLOOD SPECIMENOrdering Facility: [facility] Address: [address] [place] [address] Performed By: #### 5 7021-8 ####[facility] LABCLIA [id number] [place] [address] Nucleated RBC/100 WBC (Bld) [Ratio] 0.0 /100 WBC Normal [facility] Comment on above: Order Comment: Speci men Type: BLOOD SPECIMENOrdering Facility: [facility] Address: [address] [place] [address] Performed By: #### 5 7021-8 ####[facility] LABCLIA [id number] [place] [address] Platelet mean volume (Bld) [Entitic vol] 10.5 fL Normal 9.0-12.7 [facility] Comment on above: Order Comment: Speci men Type: BLOOD SPECIMENOrdering Facility: [facility] Address: [address] [place] [address] Performed By: #### 5 7021-8 ####[facility] LABCLIA [id number] [place] [address] Platelets (Bld) [#/Vol] 265 10*3/uL Normal 150-400 [facility] Comment on above: Order Comment: Speci men Type: BLOOD SPECIMENOrdering Facility: [facility] Address: [address] [place] [address] Performed By: #### 5 7021-8 ####[facility] LABCLIA [id number] [place] [address] RBC (Bld) [#/Vol] 3.95 10*6/uL Low 4.20-6.00 [facility] Comment on above: Order Comment: Speci men Type: BLOOD SPECIMENOrdering Facility: [facility] Address: [address] [place] [address] Performed By: #### 5 7021-8 ####[facility] LABIA [id number] [place] [address] WBC (Bld) [#/Vol] 6.82 10*3/uL Normal 3.70-11.00 [facility] Comment on above: Order Comment: Speci men Type: BLOOD SPECIMENOrdering Facility: [facility] Address: [address] [place] [address] Performed By: #### 5 7021-8 ####[facility] LABIA [id number] [place] [address] CNOVSPon 07-28-2023 CNOVSP Normal [facility] Ambulatory Visit Summaryon 0 07-23-2023 Ambulatory Visit Summary CRISTAL GU :1955 Visit Date:07/23/2023 Ambulatory Visit Instructions [...] 9:00 AM EDT With: Enrique Austin Where: [facility] [place] [address] [place] [address]- \.br\ Medications\.br\ What How Much When Instructions\.br\ [...] for choosing us for your care.\.br\ \.br\ [facility] Medicine Office/Clini c Noteon 07-23-2023 Family Medicine Office/Clinic Note HPI Staff Cristal is a 68 year old male presenting [...] Daily, 16 gram, Refill(s) 0, each nostril, [facility], 169.6, cm, 03/17/23 10:54:00 EDT, Height/Length Dosing, 62, kg, 03/17/23 10:54:00 EDT, Weight Dosing 2. Chest congestion (R09.89: Other specified symptoms and signs involving the circulatory and respiratory systems) pt having chest congestion body aches and coughing up yellow phlegm. 3. Anxiety (F41.9: Anxiety disorder, unspecified) meds refilled Ordered: fluticasone nasal, 2 spray(s), Nasal, Daily, 16 gram, Refill(s) 0, each nostril, [facility], 169.6, cm, 03/17/23 10:54:00 EDT, Height/Length Dosing, 62, kg, 03/17/23 10:54:00 EDT, Weight Dosing 4. BMI 21.0-21.9, adult (Z68.21: Body mass index [BMI] 21.0-21.9, adult) BMI education complete Ordered: fluticasone nasal, 2 spray(s), Nasal, Daily, 16 gram, Refill(s) 0, each nostril, [facility], 169.6, cm, 03/17/23 10:54:00 EDT, Height/Length Dosing, 62, kg, 03/17/23 10:54:00 EDT, Weight Dosing 5. Former smoker (Z87.891: Personal history of nicotine dependence) continue not smoking Ordered: fluticasone nasal, 2 spray(s), Nasal, Daily, 16 gram, Refill(s) 0, each nostril, [facility], 169.6, cm, 03/17/23 10:54:00 EDT, Height/Length Dosing, 62, kg, 03/17/23 10:54:00 EDT, Weight Dosing Orders: alprazolam, 0.25 mg = 1 tab(s), Oral, TID, PRN for anxiety, # 60 tab(s), Refills(s) 0, Pharmacy: [facility], 169.6, cm, 07/23/23 10:23:00 EST, Height/Length Dosing, 63, kg, 07/23/23 10:23:00 EST, Weight Dosing alprazolam, 0.25 mg = 1 tab(s), Oral, TID, PRN for anxiety, # 30 tab(s), Refills(s) 1, Pharmacy: [facility], 169.6, cm, 04/16/23 10:21:00 EDT, Height/Length Dosing, 63.8, kg, 04/16/23 10:30:00 EDT, Weight Dosing azithromycin, = 1 packet(s), Oral, As Directed, as directed on package labeling, X 5 day(s), # 6 tab(s), Refills(s) 0, Pharmacy: [facility], 169.6, cm, 07/23/23 10:23:00 EST, Height/Length Dosing, 63, kg, 07/23/23 10:23:00 EST, Weight Dosing methylPREDNISolone, = 1 packet(s), Oral, Once, as directed on package labeling, # 21 tab(s), Refills(s) 0, Pharmacy: [facility], 169.6, cm, 07/23/23 10:23:00 EST, Height/Length [...] 1 tab(s) (more content not included)... Normal [facility] Comment on above: Result Comment: Elec tronically Signed By: Enrique Austin\.br\Date and Time Signed: 07/23/23 10:41 EST Radha 07-18-2023 PATRICK Normal [facility] Medication Consenton 023 Medication Consent [id number] 8#1.00TIFF Normal [facility] Ambulatory Visit Summaryon 1 09-09-2022 Ambulatory Visit Summary CRISTAL GU :1955 Visit Date:07/09/2023 Ambulatory Visit Instructions [...] mg Tab) fluticasone nasal (Flonase 0.05 mg/inh [place]) isosorbide mononitrate (isosorbide mononitrate 30 mg ER [...] 9:00 AM EDT With: Enrique Austin Where: [facility] [address] [place] [address]- \.br\ Medications\.br\ What How Much When Why [...] Unchanged fluticasone nasal (Flonase 0.05 mg/ inh [place]) 2 Sprays Nasal Inhalation Every day Rash [...] for choosing us for your care.\.br\ \.br\ [facility] Family Medicine Office/Clini c Noteon 07-09-2023 Family Medicine Office/Clinic Note HPI Staff Cristal is a 68 year old male presenting [...] did get something rxed for it at [facility] ( amoxicillin) History of Present Illness [...] 1 tab(s), Oral, Daily Flonase 0.05 mg/inh [place], 2 spray(s), Nasal, Daily, Not taking isosorbide [...] SARS-CoV-2 (COVID-19) mRNA-1273 vaccine 11/15/[address] [facility] Comment on above: Result Comment: Elec tronically Signed By: Enrique Austin\.br\Date and Time Signed: 07/09/23 10:27 EST CBC W Auto Differential pane l (Bld)on 06-30-2023 Basophils (Bld) [#/Vol] 0.03 10*3/uL Normal <0.11 [facility] Comment on above: Order Comment: Speci men Type: BLOOD SPECIMENOrdering Facility: [facility] Address: [address] [place] [address] Performed By: #### 5 7021-8 ####[facility] LABCLIA [id number] [place] [address] Basophils/100 WBC (Bld) 0.5 % Normal [facility] Comment on above: Order Comment: Speci men Type: BLOOD SPECIMENOrdering Facility: [facility] Address: [address] [place] [address] Performed By: #### 5 7021-8 ####[facility] LABCLIA [id number] [place] [address] Differential cell count method Nom (Bld) Auto Normal [facility] Comment on above: Order Comment: Speci men Type: BLOOD SPECIMENOrdering Facility: [facility] Address: [address] [place] [address] Performed By: #### 5 7021-8 ####[facility] LABCLIA [id number] [place] [address] Eosinophils (Bld) [#/Vol] 0.27 10*3/uL Normal <0.46 [facility] Comment on above: Order Comment: Speci men Type: BLOOD SPECIMENOrdering Facility: [facility] Address: [address] [place] [address] Performed By: #### 5 7021-8 ####[facility] LABCLIA [id number] [place] [address] Eosinophils/100 WBC (Bld) 4.5 % Normal [facility] Comment on above: Order Comment: Speci men Type: BLOOD SPECIMENOrdering Facility: [facility] Address: [address] [place] [address] Performed By: #### 5 7021-8 ####[facility] LABCLIA [id number] [place] [address] Erythrocyte distribution width (RBC) [Ratio] 12.7 % Normal 11.5-15.0 [facility] Comment on above: Order Comment: Speci men Type: BLOOD SPECIMENOrdering Facility: [facility] Address: [address] [place] [address] Performed By: #### 5 7021-8 ####[facility] LABCLIA [id number] [place] [address] Hematocrit (Bld) [Volume fraction] 34.6 % Low 39.0-51.0 [facility] Comment on above: Order Comment: Speci men Type: BLOOD SPECIMENOrdering Facility: [facility] Address: [address] [place] [address] Performed By: #### 5 7021-8 ####[facility] LABIA [id number] [place] [address] Hemoglobin (Bld) [Mass/Vol] 11.7 g/dL Low 13.0-17.0 [facility] Comment on above: Order Comment: Speci men Type: BLOOD SPECIMENOrdering Facility: [facility] Address: [address] [place] [address] Performed By: #### 5 7021-8 ####[facility] LABCLIA [id number] [place] [address] Immature granulocytes (Bld) [#/Vol] 0.03 10*3/uL Normal <0.10 [facility] Comment on above: Order Comment: Speci men Type: BLOOD SPECIMENOrdering Facility: [facility] Address: [address] [place] [address] Performed By: #### 5 7021-8 ####[facility] LABIA [id number] [place] [address] Immature granulocytes/100 WBC (Bld) 0.5 % Normal [facility] Comment on above: Order Comment: Speci men Type: BLOOD SPECIMENOrdering Facility: [facility] Address: [address] [place] [address] Performed By: #### 5 7021-8 ####[facility] LABCLIA [id number] [place] [address] Lymphocytes (Bld) [#/Vol] 1.32 10*3/uL Normal 1.00-4.00 [facility] Comment on above: Order Comment: Speci men Type: BLOOD SPECIMENOrdering Facility: [facility] Address: [address] [place] [address] Performed By: #### 5 7021-8 ####[facility] LABCLIA [id number] [place] [address] Lymphocytes/100 WBC (Bld) 22.0 % Normal [facility] Comment on above: Order Comment: Speci men Type: BLOOD SPECIMENOrdering Facility: [facility] Address: [address] [place] [address] Performed By: #### 5 7021-8 ####[facility] LABCLIA [id number] [place] [address] MCH (RBC) [Entitic mass] 31.0 pg Normal 26.0-34.0 [facility] Comment on above: Order Comment: Speci men Type: BLOOD SPECIMENOrdering Facility: [facility] Address: [address] [place] [address] Performed By: #### 5 7021-8 ####[facility] LABCLIA [id number] [place] [address] MCHC (RBC) [Mass/Vol] 33.8 g/dL Normal 30.5-36.0 [facility] Comment on above: Order Comment: Speci men Type: BLOOD SPECIMENOrdering Facility: [facility] Address: [address] [place] [address] Performed By: #### 5 7021-8 ####[facility] LABCLIA [id number] [place] [address] MCV (RBC) [Entitic vol] 91.5 fL Normal 80.0-100.0 [facility] Comment on above: Order Comment: Speci men Type: BLOOD SPECIMENOrdering Facility: [facility] Address: [address] [place] [address] Performed By: #### 5 7021-8 ####[facility] LABCLIA [id number] [place] [address] Monocytes (Bld) [#/Vol] 1.12 10*3/uL High <0.87 [facility] Comment on above: Order Comment: Speci men Type: BLOOD SPECIMENOrdering Facility: [facility] Address: [address] [place] [address] Performed By: #### 5 7021-8 ####[facility] LABCLIA [id number] [place] [address] Monocytes/100 WBC (Bld) 18.7 % Normal [facility] Comment on above: Order Comment: Speci men Type: BLOOD SPECIMENOrdering Facility: [facility] Address: [address] [place] [address] Performed By: #### 5 7021-8 ####[facility] LABCLIA [id number] [place] [address] Neutrophils (Bld) [#/Vol] 3.23 10*3/uL Normal 1.45-7.50 [facility] Comment on above: Order Comment: Speci men Type: BLOOD SPECIMENOrdering Facility: [facility] Address: [address] [place] [address] Performed By: #### 5 7021-8 ####[facility] LABCLIA [id number] [place] [address] Neutrophils/100 WBC (Bld) 53.8 % Normal [facility] Comment on above: Order Comment: Speci men Type: BLOOD SPECIMENOrdering Facility: [facility] Address: [address] [place] [address] Performed By: #### 5 7021-8 ####[facility] LABCLIA [id number] [place] [address] Nucleated RBC (Bld) [#/Vol] 10*3/uL Normal <0.01 [facility] Comment on above: Order Comment: Speci men Type: BLOOD SPECIMENOrdering Facility: [facility] Address: [address] [place] [address] Performed By: #### 5 7021-8 ####[facility] LABCLIA [id number] [place] [address] Nucleated RBC/100 WBC (Bld) [Ratio] 0.0 /100 WBC Normal [facility] Comment on above: Order Comment: Speci men Type: BLOOD SPECIMENOrdering Facility: [facility] Address: [address] [place] [address] Performed By: #### 5 7021-8 ####[facility] LABCLIA [id number] [place] [address] Platelet mean volume (Bld) [Entitic vol] 10.5 fL Normal 9.0-12.7 [facility] Comment on above: Order Comment: Speci men Type: BLOOD SPECIMENOrdering Facility: [facility] Address: [address] [place] [address] Performed By: #### 5 7021-8 ####[facility] LABCLIA [id number] [place] [address] Platelets (Bld) [#/Vol] 223 10*3/uL Normal 150-400 [facility] Comment on above: Order Comment: Speci men Type: BLOOD SPECIMENOrdering Facility: [facility] Address: [address] [place] [address] Performed By: #### 5 7021-8 ####[facility] LABCLIA [id number] [place] [address] RBC (Bld) [#/Vol] 3.78 10*6/uL Low 4.20-6.00 [facility] Comment on above: Order Comment: Speci men Type: BLOOD SPECIMENOrdering Facility: [facility] Address: [address] [place] [address], [place] [address] Performed By: #### 5 7021-8 ####[facility] LABCLIA [id number] [place] [address] WBC (Bld) [#/Vol] 6.00 10*3/uL Normal 3.70-11.00 [facility] Comment on above: Order Comment: Speci men Type: BLOOD SPECIMENOrdering Facility: [facility] Address: [address] [place] [address] Performed By: #### 5 7021-8 ####[facility] LABCLIA [id number] [place] [address] CNOVon 06-30-2023 CNOV Normal [facility] CNOVSPon 06-30-2023 CNOVSP Normal [facility] Comprehensive metabolic 2000 panelon 06-30-2023 Albumin [Mass/Vol] 4.0 g/dL Normal 3.9-4.9 [facility] Comment on above: Order Comment: Speci men Type: BLOOD SPECIMENOrdering Facility: [facility] Address: [address] [place] [address] Performed By: #### 2 4323-8 ####[facility] LABCLIA [id number] [place] [address] ALP [Catalytic activity/Vol] 79 U/L Normal 38-113 [facility] Comment on above: Order Comment: Speci men Type: BLOOD SPECIMENOrdering Facility: [facility] Address: [address] [place] [address] Performed By: #### 2 4323-8 ####[facility] LABCLIA [id number] [place] [address] ALT [Catalytic activity/Vol] 30 U/L Normal 10-54 [facility] Comment on above: Order Comment: Speci men Type: BLOOD SPECIMENOrdering Facility: [facility] Address: [address] [place] [address] Performed By: #### 2 4323-8 ####[facility] LABCLIA [id number] [place] [address] Anion gap [Moles/Vol] 12 mmol/L Normal 9-18 [facility] Comment on above: Order Comment: Speci men Type: BLOOD SPECIMENOrdering Facility: [facility] Address: [address] [place] [address] Performed By: #### 2 4323-8 ####[facility] LABCLIA [id number] [place] [address] AST [Catalytic activity/Vol] 36 U/L Normal 14-40 [facility] Comment on above: Order Comment: Speci men Type: BLOOD SPECIMENOrdering Facility: [facility] Address: [address] [place] [address] Performed By: #### 2 4323-8 ####[facility] LABCLIA [id number] [place] [address] Bilirubin [Mass/Vol] 0.5 mg/dL Normal 0.2-1.3 [facility] Comment on above: Order Comment: Speci men Type: BLOOD SPECIMENOrdering Facility: [facility] Address: [address] [place] [address] Performed By: #### 2 4323-8 ####[facility] LABCLIA [id number] [place] [address] Calcium [Mass/Vol] 9.6 mg/dL Normal 8.5-10.2 [facility] Comment on above: Order Comment: Speci men Type: BLOOD SPECIMENOrdering Facility: [facility] Address: [address] [place] [address] Performed By: #### 2 4323-8 ####[facility] LABCLIA [id number] [place] [address] Chloride [Moles/Vol] 101 mmol/L Normal 97-105 [facility] Comment on above: Order Comment: Speci men Type: BLOOD SPECIMENOrdering Facility: [facility] Address: [address] [place] [address] Performed By: #### 2 4323-8 ####[facility] LABCLIA [id number] [place] [address] CO2 [Moles/Vol] 26 mmol/L Normal 22-30 [facility] Comment on above: Order Comment: Speci men Type: BLOOD SPECIMENOrdering Facility: [facility] Address: [address] [place] [address] Performed By: #### 2 4323-8 ####[facility] LABCLIA [id number] [place] [address] Creatinine [Mass/Vol] 1.34 mg/dL High 0.73-1.22 [facility] Comment on above: Order Comment: Speci men Type: BLOOD SPECIMENOrdering Facility: [facility] Address: [address] [place] [address] Performed By: #### 2 4323-8 ####[facility] LABCLIA [id number] [place] [address] Creatinine and Glomerular filtration rate.predicted panel (S/P/Bld) 58 mL/min/1.73m??? Low >=60 [facility] Comment on above: Order Comment: Speci men Type: BLOOD SPECIMENOrdering Facility: [facility] Address: [address] [place] [address] Result Comment: Landy mated Glomerular Filtration Rate [...] actual GFR. Performed By: #### 2 4323-8 ####[facility] LABCLIA [id number] [place] [address] Glucose [Mass/Vol] 100 mg/dL High 74-99 [facility] Comment on above: Order Comment: Speci men Type: BLOOD SPECIMENOrdering Facility: [facility] Address: [address] [place] [address] Result Comment: The [place] [employer] (ADA) provides guidance for cutoff [...] Standards of Medical Care in Diabetes 2016, [place] [employer]. Diabetes Care. 2016.39(Suppl 1). Performed By: #### 2 4323-8 ####[facility] LABCLIA [id number] [place] [address] Potassium [Moles/Vol] 4.0 mmol/L Normal 3.7-5.1 [facility] Comment on above: Order Comment: Speci men Type: BLOOD SPECIMENOrdering Facility: [facility] Address: [address] [place] [address] Performed By: #### 2 4323-8 ####[facility] LABCLIA [id number] [place] [address] Protein [Mass/Vol] 7.4 g/dL Normal 6.3-8.0 [facility] Comment on above: Order Comment: Speci men Type: BLOOD SPECIMENOrdering Facility: [facility] Address: [address] [place] [address] Performed By: #### 2 4323-8 ####[facility] LABCLIA [id number] [place] [address] Sodium [Moles/Vol] 139 mmol/L Normal 136-144 [facility] Comment on above: Order Comment: Speci men Type: BLOOD SPECIMENOrdering Facility: [facility] Address: [address] [place] [address] Performed By: #### 2 4323-8 ####[facility] LABCL[facility] [id number] [place] [address] Urea nitrogen [Mass/Vol] 28 mg/dL High 04-13 [facility] Comment on above: Order Comment: Speci men Type: BLOOD SPECIMENOrdering Facility: [facility] Address: [address] [place] [address] Performed By: #### 2 4323-8 ####[facility] LABCLIA [id number] [place] [address] TSH SerPl-aCncon 06-30-2023 TSH Qn 2.840 m[IU]/L Normal 0.270-4.200 [facility] Comment on above: Order Comment: Speci men Type: BLOOD SPECIMENOrdering Facility: [facility] Address: [address] [place] [address] Performed By: #### 3 016-3 ####[facility] LABCLIA [id number] [place] [id number] [place] CNOVon 06-23-2023 CNOV Normal [facility] CNOVon 06-13-2023 CNOV Normal [facility] CNOVon 06-10-2023 CNOV Normal [facility] CBC W Auto Differential pane l (Bld)on 06-02-2023 Basophils (Bld) [#/Vol] <0.11 k/uL [facility] Basophils/100 WBC (Bld) 0.4 % [facility] [facility] Differential cell count method Nom (Bld) Auto [facility] Eosinophils (Bld) [#/Vol] 0.08 10*3/uL <0.46 k/uL [facility] Eosinophils/100 WBC (Bld) 1.5 % [facility] Erythrocyte distribution width (RBC) [Ratio] 13.9 % 11.5 - 15.0 % [facility] Hematocrit (Bld) [Volume fraction] 37.5 % Low 39.0 - 51.0 % [facility] Hemoglobin (Bld) [Mass/Vol] 12.9 g/dL Low 13.0 - 17.0 g/dL [facility] Immature granulocytes (Bld) [#/Vol] 0.03 10*3/uL <0.10 k/uL [facility] Immature granulocytes/100 WBC (Bld) 0.6 % [facility] Lymphocytes (Bld) [#/Vol] 0.76 10*3/uL Low 1.00 - 4.00 k/uL [facility] Lymphocytes/100 WBC (Bld) 14.1 % [facility] MCH (RBC) [Entitic mass] 31.7 pg 26.0 - 34.0 pg [facility] MCHC (RBC) [Mass/Vol] 34.4 g/dL 30.5 - 36.0 g/dL [facility] MCV (RBC) [Entitic vol] 92.1 fL 80.0 - 100.0 fL [facility] Monocytes (Bld) [#/Vol] 0.67 10*3/uL <0.87 k/uL [facility] Monocytes/100 WBC (Bld) 12.4 % [facility] Neutrophils (Bld) [#/Vol] 3.84 10*3/uL 1.45 - 7.50 k/uL [facility] Neutrophils/100 WBC (Bld) 71.0 % [facility] Nucleated RBC (Bld) [#/Vol] <0.01 k/uL [facility] Nucleated RBC/100 WBC (Bld) [Ratio] 0.0 /100 WBC [facility] Platelet mean volume (Bld) [Entitic vol] 10.6 fL 9.0 - 12.7 fL [facility] Platelets (Bld) [#/Vol] 205 10*3/uL 150 - 400 k/uL [facility] RBC (Bld) [#/Vol] 4.07 10*6/uL Low 4.20 - 6.00 m/uL [facility] WBC (Bld) [#/Vol] 5.40 10*3/uL 3.70 - 11.00 k/u L [facility] Basophils (Bld) [#/Vol] 10*3/uL Normal <0.11 [facility] Comment on above: Order Comment: Speci men Type: BLOOD SPECIMENOrdering Facility: [facility] Address: [address] [place], [place] [address] Performed By: #### 5 7021-8 ####[facility] LABCLIA [id number] [place] [address] Basophils/100 WBC (Bld) 0.4 % Normal [facility] Comment on above: Order Comment: Speci men Type: BLOOD SPECIMENOrdering Facility: [facility] Address: [address] [place] [address] Performed By: #### 5 7021-8 ####[facility] LABCLIA [id number] [place] [address] Differential cell count method Nom (Bld) Auto Normal [facility] Comment on above: Order Comment: Speci men Type: BLOOD SPECIMENOrdering Facility: [facility] Address: [address] [place] [address] Performed By: #### 5 7021-8 ####[facility] LABCLIA [id number] [place] [address] Eosinophils (Bld) [#/Vol] 0.08 10*3/uL Normal <0.46 [facility] Comment on above: Order Comment: Speci men Type: BLOOD SPECIMENOrdering Facility: [facility] Address: [address] [place] [address] Performed By: #### 5 7021-8 ####[facility] LABCLIA [id number] [place] [address] Eosinophils/100 WBC (Bld) 1.5 % Normal [facility] Comment on above: Order Comment: Speci men Type: BLOOD SPECIMENOrdering Facility: [facility] Address: [address] [place] [address] Performed By: #### 5 7021-8 ####[facility] LABCLIA [id number] [place] [address] Erythrocyte distribution width (RBC) [Ratio] 13.9 % Normal 11.5-15.0 [facility] Comment on above: Order Comment: Speci men Type: BLOOD SPECIMENOrdering Facility: [facility] Address: [address] [place] [address] Performed By: #### 5 7021-8 ####[facility] LABCLIA [id number] [place] [address] Hematocrit (Bld) [Volume fraction] 37.5 % Low 39.0-51.0 [facility] Comment on above: Order Comment: Speci men Type: BLOOD SPECIMENOrdering Facility: [facility] Address: [address] [place] [address] Performed By: #### 5 7021-8 ####[facility] LABCLIA [id number] [place] [address] Hemoglobin (Bld) [Mass/Vol] 12.9 g/dL Low 13.0-17.0 [facility] Comment on above: Order Comment: Speci men Type: BLOOD SPECIMENOrdering Facility: [facility] Address: [address] [place] [address] Performed By: #### 5 7021-8 ####[facility] LABCLIA [id number] [place] [address] Immature granulocytes (Bld) [#/Vol] 0.03 10*3/uL Normal <0.10 [facility] Comment on above: Order Comment: Speci men Type: BLOOD SPECIMENOrdering Facility: [facility] Address: [address] [place] [address] Performed By: #### 5 7021-8 ####[facility] LABCLIA [id number] [place] [address] Immature granulocytes/100 WBC (Bld) 0.6 % Normal [facility] Comment on above: Order Comment: Speci men Type: BLOOD SPECIMENOrdering Facility: [facility] Address: [address] [place] [address] Performed By: #### 5 7021-8 ####[facility] LABCLIA [id number] [place] [address] Lymphocytes (Bld) [#/Vol] 0.76 10*3/uL Low 1.00-4.00 [facility] Comment on above: Order Comment: Speci men Type: BLOOD SPECIMENOrdering Facility: [facility] Address: [address] [place] [address] Performed By: #### 5 7021-8 ####[facility] LABCLIA [id number] [place] [address] Lymphocytes/100 WBC (Bld) 14.1 % Normal [facility] Comment on above: Order Comment: Speci men Type: BLOOD SPECIMENOrdering Facility: [facility] Address: [address] [place] [address] Performed By: #### 5 7021-8 ####[facility] LABCLIA [id number] [place] [address] MCH (RBC) [Entitic mass] 31.7 pg Normal 26.0-34.0 [facility] Comment on above: Order Comment: Speci men Type: BLOOD SPECIMENOrdering Facility: [facility] Address: [address] [place] [address] Performed By: #### 5 7021-8 ####[facility] LABCLIA [id number] [place] [address] MCHC (RBC) [Mass/Vol] 34.4 g/dL Normal 30.5-36.0 [facility] Comment on above: Order Comment: Speci men Type: BLOOD SPECIMENOrdering Facility: [facility] Address: [address] [place] [address] Performed By: #### 5 7021-8 ####[facility] LABCLIA [id number] [place] [address] MCV (RBC) [Entitic vol] 92.1 fL Normal 80.0-100.0 [facility] Comment on above: Order Comment: Speci men Type: BLOOD SPECIMENOrdering Facility: [facility] Address: [address] [place] [address] Performed By: #### 5 7021-8 ####[facility] LABCLIA [id number] [place] [address] Monocytes (Bld) [#/Vol] 0.67 10*3/uL Normal <0.87 [facility] Comment on above: Order Comment: Speci men Type: BLOOD SPECIMENOrdering Facility: [facility] Address: [address] [place] [address] Performed By: #### 5 7021-8 ####[facility] LABCLIA [id number] [place] [address] Monocytes/100 WBC (Bld) 12.4 % Normal [facility] Comment on above: Order Comment: Speci men Type: BLOOD SPECIMENOrdering Facility: [facility] Address: [address] [place] [address] Performed By: #### 5 7021-8 ####[facility] LABCLIA [id number] [place] [address] Neutrophils (Bld) [#/Vol] 3.84 10*3/uL Normal 1.45-7.50 [facility] Comment on above: Order Comment: Speci men Type: BLOOD SPECIMENOrdering Facility: [facility] Address: [address] [place] [address] Performed By: #### 5 7021-8 ####[facility] LABCLIA [id number] [place] [address] Neutrophils/100 WBC (Bld) 71.0 % Normal [facility] Comment on above: Order Comment: Speci men Type: BLOOD SPECIMENOrdering Facility: [facility] Address: [address] [place] [address] Performed By: #### 5 7021-8 ####[facility] LABIA [id number] [place] [address] Nucleated RBC (Bld) [#/Vol] 10*3/uL Normal <0.01 [facility] Comment on above: Order Comment: Speci men Type: BLOOD SPECIMENOrdering Facility: [facility] Address: [address] [place] [address] Performed By: #### 5 7021-8 ####[facility] LABCLIA [id number] [place] [address] Nucleated RBC/100 WBC (Bld) [Ratio] 0.0 /100 WBC Normal [facility] Comment on above: Order Comment: Speci men Type: BLOOD SPECIMENOrdering Facility: [facility] Address: [address] [place] [address] Performed By: #### 5 7021-8 ####[facility] LABCLIA [id number] [place] [address] Platelet mean volume (Bld) [Entitic vol] 10.6 fL Normal 9.0-12.7 [facility] Comment on above: Order Comment: Speci men Type: BLOOD SPECIMENOrdering Facility: [facility] Address: [address] [place] [address] Performed By: #### 5 7021-8 ####[facility] LABCLIA [id number] [place] [address] Platelets (Bld) [#/Vol] 205 10*3/uL Normal 150-400 [facility] Comment on above: Order Comment: Speci men Type: BLOOD SPECIMENOrdering Facility: [facility] Address: [address] [place] [address] Performed By: #### 5 7021-8 ####[facility] LABCLIA [id number] [place] [address] RBC (Bld) [#/Vol] 4.07 10*6/uL Low 4.20-6.00 [facility] Comment on above: Order Comment: Speci men Type: BLOOD SPECIMENOrdering Facility: [facility] Address: [address] [place] [address] Performed By: #### 5 7021-8 ####[facility] LABCLIA [id number] [place] [address] WBC (Bld) [#/Vol] 5.40 10*3/uL Normal 3.70-11.00 [facility] Comment on above: Order Comment: Speci men Type: BLOOD SPECIMENOrdering Facility: [facility] Address: [place] [address] Performed By: #### 5 7021-8 ####[facility] LABCLIA [id number] [place] [address] CNOVSPon 06-02-2023 CNOVSP Normal [facility] Comprehensive metabolic 2000 panelon 06-02-2023 Albumin [Mass/Vol] 4.3 g/dL 3.9 - 4.9 g/dL [facility] ALP [Catalytic activity/Vol] 58 U/L 38 - 113 U/L [facility] ALT [Catalytic activity/Vol] 14 U/L 10 - 54 U/L [facility] Anion gap [Moles/Vol] 10 mmol/L 9 - 18 mmol/L [facility] AST [Catalytic activity/Vol] 18 U/L 14 - 40 U/L [facility] Bilirubin [Mass/Vol] 0.5 mg/dL 0.2 - 1.3 mg/dL [facility] Calcium [Mass/Vol] 9.8 mg/dL 8.5 - 10.2 mg/dL [facility] Chloride [Moles/Vol] 102 mmol/L 97 - 105 mmol/L [facility] CO2 [Moles/Vol] 26 mmol/L 22 - 30 mmol/L [facility] Creatinine [Mass/Vol] 0.90 mg/dL 0.73 - 1.22 mg/dL [facility] Estimated Glomerular Filtration Rate 94 mL/min/1.73m >=60 mL/min/1.73m [facility] Glucose [Mass/Vol] 117 mg/dL High 74 - 99 mg/dL [facility] Potassium [Moles/Vol] 3.5 mmol/L Low 3.7 - 5.1 mmol/L [facility] Protein [Mass/Vol] 7.7 g/dL 6.3 - 8.0 g/dL [facility] Sodium [Moles/Vol] 138 mmol/L 136 - 144 mmol/L [facility] Urea nitrogen [Mass/Vol] 24 mg/dL 9 - 24 mg/dL [facility] Albumin [Mass/Vol] 4.3 g/dL Normal 3.9-4.9 [facility] Comment on above: Order Comment: Speci men Type: BLOOD SPECIMENOrdering Facility: [facility] Address: [address] [place] [address] Performed By: #### 2 4323-8 ####[facility] LABCLIA [id number] [place] [address] ALP [Catalytic activity/Vol] 58 U/L Normal 38-113 [facility] Comment on above: Order Comment: Speci men Type: BLOOD SPECIMENOrdering Facility: [facility] Address: [address] [place] [address] Performed By: #### 2 4323-8 ####[facility] LABCLIA [id number] [place] [address] ALT [Catalytic activity/Vol] 14 U/L Normal 10-54 [facility] Comment on above: Order Comment: Speci men Type: BLOOD SPECIMENOrdering Facility: [facility] Address: [address] [place] [address] Performed By: #### 2 4323-8 ####[facility] LABCLIA [id number] [place] [address] Anion gap [Moles/Vol] 10 mmol/L Normal 9-18 [facility] Comment on above: Order Comment: Speci men Type: BLOOD SPECIMENOrdering Facility: [facility] Address: [address] [place] [address] Performed By: #### 2 4323-8 ####[facility] LABCLIA [id number] [place] [address] AST [Catalytic activity/Vol] 18 U/L Normal 14-40 [facility] Comment on above: Order Comment: Speci men Type: BLOOD SPECIMENOrdering Facility: [facility] Address: [address] [place] [address] Performed By: #### 2 4323-8 ####[facility] LABCLIA [id number] [place] [address] Bilirubin [Mass/Vol] 0.5 mg/dL Normal 0.2-1.3 [facility] Comment on above: Order Comment: Speci men Type: BLOOD SPECIMENOrdering Facility: [facility] Address: [address] [place] [address] Performed By: #### 2 4323-8 ####[facility] LABCL[facility] [id number] [place] [address] Calcium [Mass/Vol] 9.8 mg/dL Normal 8.5-10.2 [facility] Comment on above: Order Comment: Speci men Type: BLOOD SPECIMENOrdering Facility: [facility] Address: [address] [place] [address] Performed By: #### 2 4323-8 ####[facility] LABCL[facility] [id number] [place] [address] Chloride [Moles/Vol] 102 mmol/L Normal 97-105 [facility] Comment on above: Order Comment: Speci men Type: BLOOD SPECIMENOrdering Facility: [facility] Address: [address] [place] [address] Performed By: #### 2 4323-8 ####[facility] LABCLIA [id number] [place] [address] CO2 [Moles/Vol] 26 mmol/L Normal 22-30 [facility] Comment on above: Order Comment: Speci men Type: BLOOD SPECIMENOrdering Facility: [facility] Address: [address] [place] [address] Performed By: #### 2 4323-8 ####[facility] LABCLIA [id number] [place] [address] Creatinine [Mass/Vol] 0.90 mg/dL Normal 0.73-1.22 [facility] Comment on above: Order Comment: Speci men Type: BLOOD SPECIMENOrdering Facility: [facility] Address: [address] [place] [address] Performed By: #### 2 4323-8 ####[facility] LABCLIA [id number] [place] [address] Creatinine and Glomerular filtration rate.predicted panel (S/P/Bld) 94 mL/min/1.73m??? Normal >=60 [facility] Comment on above: Order Comment: Speci men Type: BLOOD SPECIMENOrdering Facility: [facility] Address: [address] [place] [address] Result Comment: Landy mated Glomerular Filtration Rate [...] actual GFR. Performed By: #### 2 4323-8 ####[facility] LABIA [id number] [place] [address] Glucose [Mass/Vol] 117 mg/dL High 74-99 [facility] Comment on above: Order Comment: Speci men Type: BLOOD SPECIMENOrdering Facility: [facility] Address: [address] [place] [address] Result Comment: The [place] [employer] (ADA) provides guidance for cutoff [...] Standards of Medical Care in Diabetes 2016, [place] [employer]. Diabetes Care. 2016.39(Suppl 1). Performed By: #### 2 4323-8 ####[facility] LABIA [id number] [place] [address] Potassium [Moles/Vol] 3.5 mmol/L Low 3.7-5.1 [facility] Comment on above: Order Comment: Speci men Type: BLOOD SPECIMENOrdering Facility: [facility] Address: [address] [place] [address] Performed By: #### 2 4323-8 ####[facility] LABCLIA [id number] [place] [address] Protein [Mass/Vol] 7.7 g/dL Normal 6.3-8.0 [facility] Comment on above: Order Comment: Speci men Type: BLOOD SPECIMENOrdering Facility: [facility] Address: [address] [place] [address] Performed By: #### 2 4323-8 ####[facility] LABIA [id number] [place] [address] Sodium [Moles/Vol] 138 mmol/L Normal 136-144 [facility] Comment on above: Order Comment: Speci men Type: BLOOD SPECIMENOrdering Facility: [facility] Address: [address] [place] [address] Performed By: #### 2 4323-8 ####[facility] LABIA [id number] [place] [address] Urea nitrogen [Mass/Vol] 24 mg/dL Normal 9-24 [facility] Comment on above: Order Comment: Speci men Type: BLOOD SPECIMENOrdering Facility: [facility] Address: [address] [place] [address] Performed By: #### 2 4323-8 ####[facility] LABIA [id number] [place] [address] CNCNPATEDon 05-30-2023 CNCNPATED Normal [facility] CNOVon 05-30-2023 CNOV Normal [facility] CNOVon 05-27-2023 CNOV Normal [facility] CNCNPATEDon 05-20-2023 CNCNPATED Normal [facility] CNPNon 05-20-2023 CNPN Normal [facility] CNPNon 05-19-2023 CNPN Normal [facility] CNOVon 05-16-2023 CNOV Normal [facility] CNPNon 05-15-2023 CNPN Normal [facility] CNPNon 05-14-2023 CNPN Normal [facility] CBC W Auto Differential pane l (Bld)on 05-13-2023 Basophils (Bld) [#/Vol] 10*3/uL Normal <0.11 [facility] Comment on above: Order Comment: Speci men Type: BLOOD SPECIMENOrdering Facility: [facility] Address: [address] [place] [address] Performed By: #### 5 7021-8 ####[facility] LABCLIA [id number] [place] [address] Basophils/100 WBC (Bld) 0.3 % Normal [facility] Comment on above: Order Comment: Speci men Type: BLOOD SPECIMENOrdering Facility: [facility] Address: [address] [place] [address] Performed By: #### 5 7021-8 ####[facility] LABCLIA [id number] [place] [address] Differential cell count method Nom (Bld) Auto Normal [facility] Comment on above: Order Comment: Speci men Type: BLOOD SPECIMENOrdering Facility: [facility] Address: [address] [place] [address] Performed By: #### 5 7021-8 ####[facility] LABCLIA [id number] [place] [address] Eosinophils (Bld) [#/Vol] 0.14 10*3/uL Normal <0.46 [facility] Comment on above: Order Comment: Speci men Type: BLOOD SPECIMENOrdering Facility: [facility] Address: [address] [place] [address] Performed By: #### 5 7021-8 ####[facility] LABCLIA [id number] [place] [address] Eosinophils/100 WBC (Bld) 2.3 % Normal [facility] Comment on above: Order Comment: Speci men Type: BLOOD SPECIMENOrdering Facility: [facility] Address: [address] [place] [address] Performed By: #### 5 7021-8 ####[facility] LABCLIA [id number] [place] [address] Erythrocyte distribution width (RBC) [Ratio] 13.7 % Normal 11.5-15.0 [facility] Comment on above: Order Comment: Speci men Type: BLOOD SPECIMENOrdering Facility: [facility] Address: [address] [place] [address] Performed By: #### 5 7021-8 ####[facility] LABCLIA [id number] [place] [address] Hematocrit (Bld) [Volume fraction] 37.6 % Low 39.0-51.0 [facility] Comment on above: Order Comment: Speci men Type: BLOOD SPECIMENOrdering Facility: [facility] Address: [address] [place] [address] Performed By: #### 5 7021-8 ####[facility] LABCLIA [id number] [place] [address] Hemoglobin (Bld) [Mass/Vol] 13.0 g/dL Normal 13.0-17.0 [facility] Comment on above: Order Comment: Speci men Type: BLOOD SPECIMENOrdering Facility: [facility] Address: [address] [place] [address] Performed By: #### 5 7021-8 ####[facility] LABCLIA [id number] [place] [address] Immature granulocytes (Bld) [#/Vol] 0.03 10*3/uL Normal <0.10 [facility] Comment on above: Order Comment: Speci men Type: BLOOD SPECIMENOrdering Facility: [facility] Address: [address] [place] [address] Performed By: #### 5 7021-8 ####[facility] LABCLIA [id number] [place] [address] Immature granulocytes/100 WBC (Bld) 0.5 % Normal [facility] Comment on above: Order Comment: Speci men Type: BLOOD SPECIMENOrdering Facility: [facility] Address: [address] [place] [address] Performed By: #### 5 7021-8 ####[facility] LABCLIA [id number] [place] [address] Lymphocytes (Bld) [#/Vol] 1.01 10*3/uL Normal 1.00-4.00 [facility] Comment on above: Order Comment: Speci men Type: BLOOD SPECIMENOrdering Facility: [facility] Address: [address] [place] [address] Performed By: #### 5 7021-8 ####[facility] LABCLIA [id number] [place] [address] Lymphocytes/100 WBC (Bld) 16.4 % Normal [facility] Comment on above: Order Comment: Speci men Type: BLOOD SPECIMENOrdering Facility: [facility] Address: [address] [place] [address] Performed By: #### 5 7021-8 ####[facility] LABCLIA [id number] [place] [address] MCH (RBC) [Entitic mass] 31.9 pg Normal 26.0-34.0 [facility] Comment on above: Order Comment: Speci men Type: BLOOD SPECIMENOrdering Facility: [facility] Address: [address] [place] [address] Performed By: #### 5 7021-8 ####[facility] LABCLIA [id number] [place] [address] MCHC (RBC) [Mass/Vol] 34.6 g/dL Normal 30.5-36.0 [facility] Comment on above: Order Comment: Speci men Type: BLOOD SPECIMENOrdering Facility: [facility] Address: [address] [place] [address] Performed By: #### 5 7021-8 ####[facility] LABCLIA [id number] [place] [address] MCV (RBC) [Entitic vol] 92.2 fL Normal 80.0-100.0 [facility] Comment on above: Order Comment: Speci men Type: BLOOD SPECIMENOrdering Facility: [facility] Address: [address] [place] [address] Performed By: #### 5 7021-8 ####[facility] LABCLIA [id number] [place] [address] Monocytes (Bld) [#/Vol] 0.86 10*3/uL Normal <0.87 [facility] Comment on above: Order Comment: Speci men Type: BLOOD SPECIMENOrdering Facility: [facility] Address: [address] [place] [address] Performed By: #### 5 7021-8 ####[facility] LABIA [id number] [place] [address] Monocytes/100 WBC (Bld) 14.0 % Normal [facility] Comment on above: Order Comment: Speci men Type: BLOOD SPECIMENOrdering Facility: [facility] Address: [address] [place] [address] Performed By: #### 5 7021-8 ####[facility] LABCLIA [id number] [place] [address] Neutrophils (Bld) [#/Vol] 4.09 10*3/uL Normal 1.45-7.50 [facility] Comment on above: Order Comment: Speci men Type: BLOOD SPECIMENOrdering Facility: [facility] Address: [address] [place] [address] Performed By: #### 5 7021-8 ####[facility] LABCLIA [id number] [place] [address] Neutrophils/100 WBC (Bld) 66.5 % Normal [facility] Comment on above: Order Comment: Speci men Type: BLOOD SPECIMENOrdering Facility: [facility] Address: [address] [place] [address] Performed By: #### 5 7021-8 ####[facility] LABCLIA [id number] [place] [address] Nucleated RBC (Bld) [#/Vol] 10*3/uL Normal <0.01 [facility] Comment on above: Order Comment: Speci men Type: BLOOD SPECIMENOrdering Facility: [facility] Address: [address] [place] [address] Performed By: #### 5 7021-8 ####[facility] LABCLIA [id number] [place] [address] Nucleated RBC/100 WBC (Bld) [Ratio] 0.0 /100 WBC Normal [facility] Comment on above: Order Comment: Speci men Type: BLOOD SPECIMENOrdering Facility: [facility] Address: [address] [place] [address] Performed By: #### 5 7021-8 ####[facility] LABCLIA [id number] [place] [address] Platelet mean volume (Bld) [Entitic vol] 11.4 fL Normal 9.0-12.7 [facility] Comment on above: Order Comment: Speci men Type: BLOOD SPECIMENOrdering Facility: [facility] Address: [address] [place] [address] Performed By: #### 5 7021-8 ####[facility] LABCLIA [id number] [place] [address] Platelets (Bld) [#/Vol] 188 10*3/uL Normal 150-400 [facility] Comment on above: Order Comment: Speci men Type: BLOOD SPECIMENOrdering Facility: [facility] Address: [address] [place] [address] Performed By: #### 5 7021-8 ####[facility] LABCLIA [id number] [place] [address] RBC (Bld) [#/Vol] 4.08 10*6/uL Low 4.20-6.00 [facility] Comment on above: Order Comment: Speci men Type: BLOOD SPECIMENOrdering Facility: [facility] Address: [address] [place] [address] Performed By: #### 5 7021-8 ####[facility] LABCLIA [id number] [place] [address] WBC (Bld) [#/Vol] 6.15 10*3/uL Normal 3.70-11.00 [facility] Comment on above: Order Comment: Speci men Type: BLOOD SPECIMENOrdering Facility: [facility] Address: [address] [place] [address] Performed By: #### 5 7021-8 ####[facility] LABCLIA [id number] [place] [address] CNOVSPon 05-13-2023 CNOVSP Normal [facility] CNPNon 05-13-2023 CNPN Normal [facility] Comprehensive metabolic 2000 panelon 05-13-2023 Albumin [Mass/Vol] 4.5 g/dL Normal 3.9-4.9 [facility] Comment on above: Order Comment: Speci men Type: BLOOD SPECIMENOrdering Facility: [facility] Address: [address] [place] [address] Performed By: #### 2 4323-8 ####[facility] LABCLIA [id number] [place] [address] ALP [Catalytic activity/Vol] 68 U/L Normal 38-113 [facility] Comment on above: Order Comment: Speci men Type: BLOOD SPECIMENOrdering Facility: [facility] Address: [address] [place] [address] Performed By: #### 2 4323-8 ####[facility] LABCLIA [id number] [place] [address] ALT [Catalytic activity/Vol] 24 U/L Normal 10-54 [facility] Comment on above: Order Comment: Speci men Type: BLOOD SPECIMENOrdering Facility: [facility] Address: [address] [place] [address] Performed By: #### 2 4323-8 ####[facility] LABCLIA [id number] [place] [address] Anion gap [Moles/Vol] 7 mmol/L Low 9-18 [facility] Comment on above: Order Comment: Speci men Type: BLOOD SPECIMENOrdering Facility: [facility] Address: [address] [place] [address] Performed By: #### 2 4323-8 ####[facility] LABCLIA [id number] [place] [address] AST [Catalytic activity/Vol] 24 U/L Normal 14-40 [facility] Comment on above: Order Comment: Speci men Type: BLOOD SPECIMENOrdering Facility: [facility] Address: [address] [place] [address] Performed By: #### 2 4323-8 ####[facility] LABCLIA [id number] [place] [address] Bilirubin [Mass/Vol] 0.4 mg/dL Normal 0.2-1.3 [facility] Comment on above: Order Comment: Speci men Type: BLOOD SPECIMENOrdering Facility: [facility] Address: [address] [place] [address] Performed By: #### 2 4323-8 ####[facility] LABCLIA [id number] [place] [address] Calcium [Mass/Vol] 9.8 mg/dL Normal 8.5-10.2 [facility] Comment on above: Order Comment: Speci men Type: BLOOD SPECIMENOrdering Facility: [facility] Address: [address] [place] [address] Performed By: #### 2 4323-8 ####[facility] LABCLIA [id number] [place] [address] Chloride [Moles/Vol] 102 mmol/L Normal 97-105 [facility] Comment on above: Order Comment: Speci men Type: BLOOD SPECIMENOrdering Facility: [facility] Address: [address] [place] [address] Performed By: #### 2 4323-8 ####[facility] LABCLIA [id number] [place] [address] CO2 [Moles/Vol] 28 mmol/L Normal 22-30 [facility] Comment on above: Order Comment: Speci men Type: BLOOD SPECIMENOrdering Facility: [facility] Address: [address] [place] [address] Performed By: #### 2 4323-8 ####[facility] LABCLIA [id number] [place] [address] Creatinine [Mass/Vol] 1.06 mg/dL Normal 0.73-1.22 [facility] Comment on above: Order Comment: Speci men Type: BLOOD SPECIMENOrdering Facility: [facility] Address: [address] [place] [address] Performed By: #### 2 4323-8 ####[facility] LABCLIA [id number] [place] [address] Creatinine and Glomerular filtration rate.predicted panel (S/P/Bld) 77 mL/min/1.73m??? Normal >=60 [facility] Comment on above: Order Comment: Speci men Type: BLOOD SPECIMENOrdering Facility: [facility] Address: [address] [place] [address] Result Comment: Landy mated Glomerular Filtration Rate [...] actual GFR. Performed By: #### 2 4323-8 ####[facility] LABCLIA [id number] [place] [address] Glucose [Mass/Vol] 150 mg/dL High 74-99 [facility] Comment on above: Order Comment: Speci men Type: BLOOD SPECIMENOrdering Facility: [facility] Address: [address] [place] [address] Result Comment: The [place] Diabetes Association (ADA) provides guidance for cutoff [...] Standards of Medical Care in Diabetes 2016, [place] [employer]. Diabetes Care. 2016.39(Suppl 1). Performed By: #### 2 4323-8 ####[facility] LABCLIA [id number] [place] [address] Potassium [Moles/Vol] 3.4 mmol/L Low 3.7-5.1 [facility] Comment on above: Order Comment: Speci men Type: BLOOD SPECIMENOrdering Facility: [facility] Address: [address] [place] [address] Performed By: #### 2 4323-8 ####[facility] LABCLIA [id number] [place] [address] Protein [Mass/Vol] 7.5 g/dL Normal 6.3-8.0 [facility] Comment on above: Order Comment: Ajay men Type: BLOOD SPECIMENOrdering Facility: [facility] Address: [address] [place] [address] Performed By: #### 2 4323-8 ####[facility] LABCLIA [id number] [place] [address] Sodium [Moles/Vol] 137 mmol/L Normal 136-144 [facility] Comment on above: Order Comment: Speci men Type: BLOOD SPECIMENOrdering Facility: [facility] Address: [address] [place] [address] Performed By: #### 2 4323-8 ####[facility] LABCLIA [id number] [place] [address] Urea nitrogen [Mass/Vol] 30 mg/dL High 9- [facility] Comment on above: Order Comment: Speci men Type: BLOOD SPECIMENOrdering Facility: [facility] Address: [address] [place] [address] Performed By: #### 2 4323-8 ####[facility] LABCLIA [id number] [place] [address] T4/FTI/T4Uon 05-13-2023 FTI 6.6 ug/dL Normal 5.3-10.8 [facility] Comment on above: Order Comment: Speci men Type: BLOOD SPECIMENOrdering Facility: [facility] Address: [address] [place] [address] Performed By: #### T 4FALEJANDRO, 6-3 ####[facility] LABCLIA [id number] [place] [address] [place] T4 [Mass/Vol] 6.3 ug/dL Normal 5.5-10.2 [facility] Comment on above: Order Comment: Speci men Type: BLOOD SPECIMENOrdering Facility: [facility] Address: [address] [place] [address] Performed By: #### T ROCIO, 6-3 ####[facility] LABCLIA [id number] [address] [address] [place] T4 uptake [Mass/Vol] 0.96 Normal 0.91-1.19 [facility] Comment on above: Order Comment: Speci men Type: BLOOD SPECIMENOrdering Facility: [facility] Address: [address] [place] [address] Performed By: #### Lexi 4FALEJANDRO, 6-3 ####[facility] LABCLIA [id number] [place] [address] [place] TSH SerPl-aCncon 05-13-2023 TSH Qn 47.800 m[IU]/L High 0.270-4.200 [facility] Comment on above: Order Comment: Speci men Type: BLOOD SPECIMENOrdering Facility: [facility] Address: [address] [place] [address] Performed By: #### Lexi CHAN, 3015-3 ####[facility] LABCLIA [id number] [place] [address] [place] NM PET/CT SKULL-THIGH SUBQon 05-12-2023 NM PET/CT SKULL-THIGH SUBQ Normal [facility] CNPNon 05-08-2023 CNPN Normal [facility] CNPNon 04-23-2023 CNPN Normal [facility] CBC W Auto Differential pane l (Bld)on 04-22-2023 Basophils (Bld) [#/Vol] 0.04 10*3/uL Normal <0.11 [facility] Comment on above: Order Comment: Speci men Type: BLOOD SPECIMENOrdering Facility: [facility] Address: [address] [place] [address] Performed By: #### 5 7021-8 ####[facility] LAB[facility] [id number] [place] [address] Basophils/100 WBC (Bld) 0.8 % Normal [facility] Comment on above: Order Comment: Speci men Type: BLOOD SPECIMENOrdering Facility: [facility] Address: [address] Performed By: #### 5 7021-8 ####[facility] LAB[facility] [id number] [place] [address] Differential cell count method Nom (Bld) Auto Normal [facility] Comment on above: Order Comment: Speci men Type: BLOOD SPECIMENOrdering Facility: [facility] Address: [address] [place] [address] Performed By: #### 5 7021-8 ####[facility] LABCLIA [id number] [place] [address] Eosinophils (Bld) [#/Vol] 0.07 10*3/uL Normal <0.46 [facility] Comment on above: Order Comment: Speci men Type: BLOOD SPECIMENOrdering Facility: [facility] Address: [address] [place] [address] Performed By: #### 5 7021-8 ####[facility] LABCLIA [id number] [place] [address] Eosinophils/100 WBC (Bld) 1.4 % Normal [facility] Comment on above: Order Comment: Speci men Type: BLOOD SPECIMENOrdering Facility: [facility] Address: [address] [place] [address] Performed By: #### 5 7021-8 ####[facility] LABCLIA [id number] [place] [address] Erythrocyte distribution width (RBC) [Ratio] 14.5 % Normal 11.5-15.0 [facility] Comment on above: Order Comment: Speci men Type: BLOOD SPECIMENOrdering Facility: [facility] Address: [address] [place] [address] Performed By: #### 5 7021-8 ####[facility] LABCLIA [id number] [place] [address] Hematocrit (Bld) [Volume fraction] 39.9 % Normal 39.0-51.0 [facility] Comment on above: Order Comment: Speci men Type: BLOOD SPECIMENOrdering Facility: [facility] Address: [address] [place] [address] Performed By: #### 5 7021-8 ####[facility] LABCLIA [id number] [place] [address] Hemoglobin (Bld) [Mass/Vol] 13.7 g/dL Normal 13.0-17.0 [facility] Comment on above: Order Comment: Speci men Type: BLOOD SPECIMENOrdering Facility: [facility] Address: [address] [place] [address] Performed By: #### 5 7021-8 ####[facility] LABCLIA [id number] [place] [address] Immature granulocytes (Bld) [#/Vol] 0.05 10*3/uL Normal <0.10 [facility] Comment on above: Order Comment: Speci men Type: BLOOD SPECIMENOrdering Facility: [facility] Address: [address] [place] [address] Performed By: #### 5 7021-8 ####[facility] LABCLIA [id number] [place] [address] Immature granulocytes/100 WBC (Bld) 1.0 % Normal [facility] Comment on above: Order Comment: Speci men Type: BLOOD SPECIMENOrdering Facility: [facility] Address: [address] [place] [address] Performed By: #### 5 7021-8 ####[facility] LABCLIA [id number] [place] [address] Lymphocytes (Bld) [#/Vol] 0.82 10*3/uL Low 1.00-4.00 [facility] Comment on above: Order Comment: Speci men Type: BLOOD SPECIMENOrdering Facility: [facility] Address: [address] [place] [address] Performed By: #### 5 7021-8 ####[facility] LABCLIA [id number] [place] [address] Lymphocytes/100 WBC (Bld) 16.2 % Normal [facility] Comment on above: Order Comment: Speci men Type: BLOOD SPECIMENOrdering Facility: [facility] Address: [address] [place] [address] Performed By: #### 5 7021-8 ####[facility] LABCLIA [id number] [place] [address] MCH (RBC) [Entitic mass] 32.0 pg Normal 26.0-34.0 [facility] Comment on above: Order Comment: Speci men Type: BLOOD SPECIMENOrdering Facility: [facility] Address: [address] [place] [address] Performed By: #### 5 7021-8 ####[facility] LABCLIA [id number] [place] [address] MCHC (RBC) [Mass/Vol] 34.3 g/dL Normal 30.5-36.0 [facility] Comment on above: Order Comment: Speci men Type: BLOOD SPECIMENOrdering Facility: [facility] Address: [address] [place] [address] Performed By: #### 5 7021-8 ####[facility] LABCLIA [id number] [place] [address] MCV (RBC) [Entitic vol] 93.2 fL Normal 80.0-100.0 [facility] Comment on above: Order Comment: Speci men Type: BLOOD SPECIMENOrdering Facility: [facility] Address: [address] [place] [address] Performed By: #### 5 7021-8 ####[facility] LABCLIA [id number] [place] [address] Monocytes (Bld) [#/Vol] 0.45 10*3/uL Normal <0.87 [facility] Comment on above: Order Comment: Speci men Type: BLOOD SPECIMENOrdering Facility: [facility] Address: [address] [place] [address] Performed By: #### 5 7021-8 ####[facility] LABCLIA [id number] [place] [address] Monocytes/100 WBC (Bld) 8.9 % Normal [facility] Comment on above: Order Comment: Speci men Type: BLOOD SPECIMENOrdering Facility: [facility] Address: [address] [place] [address] Performed By: #### 5 7021-8 ####[facility] LABCLIA [id number] [place] [address] Neutrophils (Bld) [#/Vol] 3.63 10*3/uL Normal 1.45-7.50 [facility] Comment on above: Order Comment: Speci men Type: BLOOD SPECIMENOrdering Facility: [facility] Address: [address] [place] [address] Performed By: #### 5 7021-8 ####[facility] LABCLIA [id number] [place] [address] Neutrophils/100 WBC (Bld) 71.7 % Normal [facility] Comment on above: Order Comment: Speci men Type: BLOOD SPECIMENOrdering Facility: [facility] Address: [address] [place] [address] Performed By: #### 5 7021-8 ####[facility] LABCLIA [id number] [place] [address] Nucleated RBC (Bld) [#/Vol] 10*3/uL Normal <0.01 [facility] Comment on above: Order Comment: Speci men Type: BLOOD SPECIMENOrdering Facility: [facility] Address: [address] [place] [address] Performed By: #### 5 7021-8 ####[facility] LABCLIA [id number] [place] [address] Nucleated RBC/100 WBC (Bld) [Ratio] 0.0 /100 WBC Normal [facility] Comment on above: Order Comment: Speci men Type: BLOOD SPECIMENOrdering Facility: [facility] Address: [address] [place] [address] Performed By: #### 5 7021-8 ####[facility] LABCLIA [id number] [place] [address] Platelet mean volume (Bld) [Entitic vol] 10.2 fL Normal 9.0-12.7 [facility] Comment on above: Order Comment: Speci men Type: BLOOD SPECIMENOrdering Facility: [facility] Address: [address] [place] [address] Performed By: #### 5 7021-8 ####[facility] LABCLIA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 [Catalytic activity/Vol] 32 U/L 13-39 [facility] Basophils Auto (Bld) [#/Vol] Ordered By: Sapna Angulo on 01-03-2023 Basophils (Bld) [#/Vol] 0.0 10*3/uL 0.0-0.2 [facility] Basophils/100 WBC Auto (Bld) Ordered By: Sapna Angulo on 01-03-2023 Basophils/100 WBC (Bld) 0.4 % . [facility] Bilirubin.direct [Mass/volum e] in Serum or PlasmaOrdered By: Sapna Angulo on 01-03-2023 Bilirubin.direct [Mass/Vol] 0.30 mg/dL 0.03-0.18 [facility] Bilirubin.total [Mass/volume ] in Serum or PlasmaOrdered By: Sapna Angulo on 01-03-2023 Bilirubin [Mass/Vol] 1.0 mg/dL 0.3-1.0 [facility] Calcium [Mass/volume] in Ser um or PlasmaOrdered By: Sapna Angulo on 01-03-2023 Calcium [Mass/Vol] 9.6 mg/dL 8.6-10.3 [facility] Carbon dioxide, total [Moles /volume] in Serum or PlasmaOrdered By: Sapna Angulo on 01-03-2023 CO2 [Moles/Vol] 26.8 mmol/L 21.0-31.0 [facility] Chloride [Moles/volume] in S juanpablo or PlasmaOrdered By: Sapna Angulo on 01-03-2023 Chloride [Moles/Vol] 104 mmol/L 98-107 [facility] Creatinine [Mass/volume] in Serum or PlasmaOrdered By: Sapna Angulo on 01-03-2023 Creatinine [Mass/Vol] 0.89 mg/dL 0.70-1.30 [facility] Eosinophils Auto (Bld) [#/Vo l]Ordered By: Sapna Angulo on 01-03-2023 Eosinophils (Bld) [#/Vol] 0.1 10*3/uL 0.0-0.45 [facility] Eosinophils/100 WBC Auto (Bl d)Ordered By: Sapna Angulo on 01-03-2023 Eosinophils/100 WBC (Bld) 1.4 % . [facility] Erythrocyte distribution wid th Auto (RBC) [Ratio]Ordered By: Sapna Angulo on 01-03-2023 Erythrocyte distribution width (RBC) [Ratio] 16.7 % 12.0-14.8 [facility] Globulin Calc (S) [Mass/Vol] Ordered By: Sapna Angulo 01-03-2023 Globulin (S) [Mass/Vol] 3.2 g/dL [facility] Glucose [Mass/volume] in Ser um or PlasmaOrdered By: Sapna Angulo 01-03-2023 Glucose [Mass/Vol] 96 mg/dL 70-100 [facility] Comment on above: ADA recommended refe rence rangeRandom Glucose Reference Range is dependent on time and content of last meal. Glucose of more than 200 mg/dL in a nonstressed, ambulatory subject supports the diagnosis of Diabetes Mellitus. Hematocrit Auto (Bld) [Volum e fraction]Ordered By: Sapna Angulo on 01-03-2023 Hematocrit (Bld) [Volume fraction] 39.0 % 38.8-50.0 [facility] Hemoglobin [Mass/volume] in BloodOrdered By: Sapna Angulo on 01-03-2023 Hemoglobin (Bld) [Mass/Vol] 13.2 g/dL 13.0-17.0 [facility] Laboratory - CoagulationOrde red By: Sapna Angulo on 01-03-2023 PT Coag (PPP) [Time] 12.1 s 9.0-12.9 [facility] Leukocytes [#/volume] correc nani for nucleated erythrocytes in Blood by Automated counOrdered By: Sapna Angulo on 01-03-2023 WBC corrected for nucl RBC Auto (Bld) [#/Vol] 5.6 10*3/uL 4.1-10.5 [facility] Lymphocytes Auto (Bld) [#/Vo l]Ordered By: Sapna Angulo on 01-03-2023 Lymphocytes (Bld) [#/Vol] 0.9 10*3/uL 1.00-4.8 [facility] Lymphocytes/100 WBC Auto (Bl d)Ordered By: Sapna Angulo on 01-03-2023 Lymphocytes/100 WBC (Bld) 16.1 % . [facility] MCH Auto (RBC) [Entitic mass ]Ordered By: Sapna Angulo on 01-03-2023 MCH (RBC) [Entitic mass] 30.0 pg 27.5-35.2 [facility] MCHC Auto (RBC) [Mass/Vol]Or dered By: Sapna Angulo on 01-03-2023 MCHC (RBC) [Mass/Vol] 33.9 g/dL 32.5-35.6 [facility] MCV Auto (RBC) [Entitic vol] Ordered By: Sapna Angulo on 01-03-2023 MCV (RBC) [Entitic vol] 88.4 fL 83.5-101 [facility] Monocyte distribution width [Entitic volume] in Blood by AutomatedOrdered By: Sapna Angulo on 01-03-2023 Monocyte distribution width Auto (Bld) [Entitic vol] 20.82 % 0.00-20.00 [facility] Comment on above: For adults in ED, MD W > 20.0 may be associated with a higher risk of sepsis during the first 12 hrs of hospital admission Monocytes Auto (Bld) [#/Vol] Ordered By: Sapna Angulo on 01-03-2023 Monocytes (Bld) [#/Vol] 0.7 10*3/uL 0.0-0.8 [facility] Monocytes/100 WBC Auto (Bld) Ordered By: Sapna Angulo on 01-03-2023 Monocytes/100 WBC (Bld) 11.8 % . [facility] Natriuretic peptide B [Mass/ Vol]Ordered By: Sapna Angulo on 01-03-2023 Natriuretic peptide B (Bld) [Mass/Vol] 93.0 pg/mL 5-100 [facility] Neutrophils Auto (Bld) [#/Vo l]Ordered By: Sapna Angulo on 01-03-2023 Neutrophils (Bld) [#/Vol] 3.9 10*3/uL 1.8-7.7 [facility] Neutrophils/100 WBC Auto (Bl d)Ordered By: Sapna Angulo on 01-03-2023 Neutrophils/100 WBC (Bld) 70.3 % . [facility] No Panel InformationOrdered By: Sapna Angulo on 01-03-2023 D-Dimer Quantitative (PE/DVT) 374 ng/mL 0-243 [facility] Comment on above: The reference range for [...] conditions. Estimated GFR (CKD-EPI) > 60.0 mL/Min [facility] Creatinine Clearance (Chem 68.76 [facility] Nucleated erythrocytes [Pres ence] in Blood by Automated countOrdered By: Sapna Angulo on 01-03-2023 Nucleated RBC Auto Ql (Bld) 0.2 /100{WBC} 0-0.5 [facility] Platelet mean volume Auto (B ld) [Entitic vol]Ordered By: Sapna Angulo on 01-03-2023 Platelet mean volume (Bld) [Entitic vol] 9.6 fL 6.6-10.1 [facility] Platelet poor plasma interna tional normalized ratio (INR) by coagulation assay (relatOrdered By: Sapna Angulo on 01-03-2023 INR Coag (PPP) [Relative time] 1.0 {INR} [facility] Comment on above: INR Therapeutic Rang e [...] 01-03-2023 Platelets (Bld) [#/Vol] 148 10*3/uL 150-450 [facility] Potassium [Moles/volume] in Serum or PlasmaOrdered By: Sapna Angulo on 01-03-2023 Potassium [Moles/Vol] 4.0 mmol/L 3.5-5.1 [facility] Protein [Mass/volume] in Ser um or PlasmaOrdered By: Sapna Angulo on 01-03-2023 Protein [Mass/Vol] 7.4 g/dL 6.4-8.9 [facility] RBC Auto (Bld) [#/Vol]Ordere d By: Sapna Angulo on 01-03-2023 RBC (Bld) [#/Vol] 4.41 10*6/uL 3.90-5.60 [facility] Serum or plasma albumin/glob ulin mass ratioOrdered By: Sapna Angulo on 01-03-2023 Albumin/Globulin [Mass ratio] 1.3 {ratio} [facility] Serum or plasma anion gap de terminationOrdered By: Sapna Angulo on 01-03-2023 Anion gap [Moles/Vol] 11.2 mmol/L 6.0-15.0 [facility] Serum or plasma non-glucuron idated bilirubin measurement (mass/volume)Ordered By: Sapna Angulo on 01-03-2023 Bilirubin.indirect [Mass/Vol] 0.7 mg/dL [facility] Sodium [Moles/volume] in Ser um or PlasmaOrdered By: Sapna Angulo on 01-03-2023 Sodium [Moles/Vol] 138 mmol/L 136-145 [facility] Troponin I.cardiac [Mass/vol ume] in Serum or Plasma by Detection limit <= 0.01 ng/Ordered By: Sapna Angulo on 01-03-2023 Troponin I.cardiac DL <= 0.01 ng/mL [Mass/Vol] 11.0 pg/mL 0.0-20.0 [facility] Urea nitrogen [Mass/volume] in Serum or PlasmaOrdered By: Sapna Angulo on 01-03-2023 Urea nitrogen [Mass/Vol] 24 mg/dL 7-25 [facility] WBC Auto (Bld) [#/Vol]Ordere d By: Sapna Angulo on 01-03-2023 WBC (Bld) [#/Vol] 5.6 10*3/uL 4.1-10.5 [facility] Comprehensive metabolic 2000 panelon 11-25-2022 Albumin [Mass/Vol] 3.9 g/dL 3.9 - 4.9 g/dL [facility] ALP [Catalytic activity/Vol] 58 U/L 38 - 113 U/L [facility] ALT [Catalytic activity/Vol] 248 U/L High 10 - 54 U/L [facility] Anion gap [Moles/Vol] 8 mmol/L Low 9 - 18 mmol/L [facility] AST [Catalytic activity/Vol] 142 U/L High 14 - 40 U/L [facility] Bilirubin [Mass/Vol] 1.1 mg/dL 0.2 - 1.3 mg/dL [facility] Calcium [Mass/Vol] 9.7 mg/dL 8.5 - 10.2 mg/dL [facility] Chloride [Moles/Vol] 96 mmol/L Low 97 - 105 mmol/L [facility] CO2 [Moles/Vol] 26 mmol/L 22 - 30 mmol/L [facility] Creatinine [Mass/Vol] 0.97 mg/dL 0.73 - 1.22 mg/dL [facility] Estimated Glomerular Filtration Rate 87 mL/min/1.73m >=60 mL/min/1.73m [facility] Glucose [Mass/Vol] 159 mg/dL High 74 - 99 mg/dL [facility] Potassium [Moles/Vol] 3.6 mmol/L Low 3.7 - 5.1 mmol/L [facility] Protein [Mass/Vol] 7.5 g/dL 6.3 - 8.0 g/dL [facility] Sodium [Moles/Vol] 130 mmol/L Low 136 - 144 mmol/L [facility] Urea nitrogen [Mass/Vol] 15 mg/dL 9 - 24 mg/dL [facility] LD LACTATE DEHYDROon 023 LDH [Catalytic activity/Vol] 291 U/L High 135 - 225 U/L [facility] CBC W Auto Differential pane l (Bld)on 10-31-2022 Basophils (Bld) [#/Vol] <0.11 k/uL [facility] Basophils/100 WBC (Bld) 0.4 % [facility] Differential cell count method Nom (Bld) Auto [facility] Eosinophils (Bld) [#/Vol] 0.17 10*3/uL <0.46 k/uL [facility] Eosinophils/100 WBC (Bld) 3.7 % [facility] Erythrocyte distribution width (RBC) [Ratio] 14.7 % 11.5 - 15.0 % [facility] Hematocrit (Bld) [Volume fraction] 32.0 % Low 39.0 - 51.0 % [facility] Hemoglobin (Bld) [Mass/Vol] 10.8 g/dL Low 13.0 - 17.0 g/dL [facility] Immature granulocytes (Bld) [#/Vol] <0.10 k/uL [facility] Immature granulocytes/100 WBC (Bld) 0.2 % [facility] Lymphocytes (Bld) [#/Vol] 0.59 10*3/uL Low 1.00 - 4.00 k/uL [facility] Lymphocytes/100 WBC (Bld) 12.9 % [facility] MCH (RBC) [Entitic mass] 30.3 pg 26.0 - 34.0 pg [facility] MCHC (RBC) [Mass/Vol] 33.8 g/dL 30.5 - 36.0 g/dL [facility] MCV (RBC) [Entitic vol] 89.6 fL 80.0 - 100.0 fL [facility] Monocytes (Bld) [#/Vol] 0.87 10*3/uL High <0.87 k/uL [facility] Monocytes/100 WBC (Bld) 19.0 % [facility] Neutrophils (Bld) [#/Vol] 2.92 10*3/uL 1.45 - 7.50 k/uL [facility] Neutrophils/100 WBC (Bld) 63.8 % [facility] Nucleated RBC (Bld) [#/Vol] <0.01 k/uL [facility] Nucleated RBC/100 WBC (Bld) [Ratio] 0.0 /100 WBC [facility] Platelet mean volume (Bld) [Entitic vol] 10.2 fL 9.0 - 12.7 fL [facility] Platelets (Bld) [#/Vol] 247 10*3/uL 150 - 400 k/uL [facility] RBC (Bld) [#/Vol] 3.57 10*6/uL Low 4.20 - 6.00 m/uL [facility] WBC (Bld) [#/Vol] 4.58 10*3/uL 3.70 - 11.00 k/u L [facility] Comprehensive metabolic 2000 panelon 10-31-2022 Albumin [Mass/Vol] 4.1 g/dL 3.9 - 4.9 g/dL [facility] ALP [Catalytic activity/Vol] 54 U/L 38 - 113 U/L [facility] ALT [Catalytic activity/Vol] 17 U/L 10 - 54 U/L [facility] Anion gap [Moles/Vol] 8 mmol/L Low 9 - 18 mmol/L [facility] AST [Catalytic activity/Vol] 21 U/L 14 - 40 U/L [facility] Bilirubin [Mass/Vol] 0.7 mg/dL 0.2 - 1.3 mg/dL [facility] Calcium [Mass/Vol] 9.4 mg/dL 8.5 - 10.2 mg/dL [facility] Chloride [Moles/Vol] 100 mmol/L 97 - 105 mmol/L [facility] CO2 [Moles/Vol] 25 mmol/L 22 - 30 mmol/L [facility] Creatinine [Mass/Vol] 1.08 mg/dL 0.73 - 1.22 mg/dL [facility] Estimated Glomerular Filtration Rate 76 mL/min/1.73m >=60 mL/min/1.73m [facility] Glucose [Mass/Vol] 97 mg/dL 74 - 99 mg/dL [facility] Potassium [Moles/Vol] 3.7 mmol/L 3.7 - 5.1 mmol/L [facility] Protein [Mass/Vol] 7.1 g/dL 6.3 - 8.0 g/dL [facility] Sodium [Moles/Vol] 133 mmol/L Low 136 - 144 mmol/L [facility] Urea nitrogen [Mass/Vol] 20 mg/dL 9 - 24 mg/dL [facility] Orders Onlyon 10-23-2022 Orders Only [id number] Cristal Gu 1955 M Date Provider Department Center 10/23/2022 CHAYITO JONAS [facility] No family history on file Normal [facility] CBC W Auto Differential pane l (Bld)on 10-21-2022 Basophils (Bld) [#/Vol] 0.03 10*3/uL <0.11 k/uL [facility] Basophils/100 WBC (Bld) 0.5 % [facility] Differential cell count method Nom (Bld) Auto [facility] Eosinophils (Bld) [#/Vol] 0.19 10*3/uL <0.46 k/uL [facility] Eosinophils/100 WBC (Bld) 2.9 % [facility] Erythrocyte distribution width (RBC) [Ratio] 15.0 % 11.5 - 15.0 % [facility] Hematocrit (Bld) [Volume fraction] 39.7 % 39.0 - 51.0 % [facility] Hemoglobin (Bld) [Mass/Vol] 13.3 g/dL 13.0 - 17.0 g/dL [facility] Immature granulocytes (Bld) [#/Vol] 0.05 10*3/uL <0.10 k/uL [facility] Immature granulocytes/100 WBC (Bld) 0.8 % [facility] Lymphocytes (Bld) [#/Vol] 0.95 10*3/uL Low 1.00 - 4.00 k/uL [facility] Lymphocytes/100 WBC (Bld) 14.6 % [facility] MCH (RBC) [Entitic mass] 30.6 pg 26.0 - 34.0 pg [facility] MCHC (RBC) [Mass/Vol] 33.5 g/dL 30.5 - 36.0 g/dL [facility] MCV (RBC) [Entitic vol] 91.3 fL 80.0 - 100.0 fL [facility] Monocytes (Bld) [#/Vol] 0.62 10*3/uL <0.87 k/uL [facility] Monocytes/100 WBC (Bld) 9.5 % [facility] Neutrophils (Bld) [#/Vol] 4.66 10*3/uL 1.45 - 7.50 k/uL [facility] Neutrophils/100 WBC (Bld) 71.7 % [facility] Nucleated RBC (Bld) [#/Vol] <0.01 k/uL [facility] Nucleated RBC/100 WBC (Bld) [Ratio] 0.0 /100 WBC [facility] Platelet mean volume (Bld) [Entitic vol] 10.1 fL 9.0 - 12.7 fL [facility] Platelets (Bld) [#/Vol] 237 10*3/uL 150 - 400 k/uL [facility] RBC (Bld) [#/Vol] 4.35 10*6/uL 4.20 - 6.00 m/uL [facility] WBC (Bld) [#/Vol] 6.50 10*3/uL 3.70 - 11.00 k/u L [facility] Comprehensive metabolic 2000 panelon 10-21-2022 Albumin [Mass/Vol] 4.4 g/dL 3.9 - 4.9 g/dL [facility] ALP [Catalytic activity/Vol] 55 U/L 38 - 113 U/L [facility] ALT [Catalytic activity/Vol] 22 U/L 10 - 54 U/L [facility] Anion gap [Moles/Vol] 10 mmol/L 9 - 18 mmol/L [facility] AST [Catalytic activity/Vol] 20 U/L 14 - 40 U/L [facility] Bilirubin [Mass/Vol] 0.7 mg/dL 0.2 - 1.3 mg/dL [facility] Calcium [Mass/Vol] 10.2 mg/dL 8.5 - 10.2 mg/dL [facility] Chloride [Moles/Vol] 98 mmol/L 97 - 105 mmol/L [facility] CO2 [Moles/Vol] 27 mmol/L 22 - 30 mmol/L [facility] Creatinine [Mass/Vol] 1.04 mg/dL 0.73 - 1.22 mg/dL [facility] Estimated Glomerular Filtration Rate 80 mL/min/1.73m >=60 mL/min/1.73m [facility] Glucose [Mass/Vol] 145 mg/dL High 74 - 99 mg/dL [facility] Potassium [Moles/Vol] 4.2 mmol/L 3.7 - 5.1 mmol/L [facility] Protein [Mass/Vol] 7.8 g/dL 6.3 - 8.0 g/dL [facility] Sodium [Moles/Vol] 135 mmol/L Low 136 - 144 mmol/L [facility] Urea nitrogen [Mass/Vol] 21 mg/dL 9 - 24 mg/dL [facility] LD LACTATE DEHYDROon 023 LDH [Catalytic activity/Vol] 183 U/L 135 - 225 U/L [facility] XR CHEST 1 Von 10-10-2022 XR CHEST [...] differentiate infiltrate from a mass. Normal [facility] XR SHOULDER LT 2V or >on XR [...] for more detailed evaluation. Electronically authenticated by: OLVE ALBERTS Date: 2022-10-10 11:46 Normal [facility] LIPID PROFILEon 09-19-2022 CHOL-HDL RATIO NORM SEE BELOW Normal [facility] Comment on above: Result Comment: 3.3 - 4.4 LOW RISK 4.4 - 7.1 AVERAGE RISK 7.1 - 11.0 MODERATE RISK >11.0 HIGH RISK Performed By: #### L IPID #### [facility] [address] [place] [address] Dr. Usama Hobbs Cholesterol [Mass/Vol] 104 mg/dL Normal <=200 [facility] Comment on above: Performed By: #### L IPID #### [facility] [address] [address] [address] Usama Hobbs Cholesterol in HDL [Mass/Vol] 36 mg/dL Critically low 40-60 [facility] Comment on above: Performed By: #### L IPID #### [facility] [address] [address] [address] Usama Hobbs Cholesterol in LDL [Mass/Vol] 59.6 mg/dL Normal [facility] Comment on above: Performed By: #### L IPID #### [facility] [address] [address] [address] Usama Hobbs Cholesterol.total/Ch olesterol in HDL [Mass ratio] 2.9 {ratio} Normal [facility] Comment on above: Performed By: #### L IPID #### [facility] [address] [address] [address] Usama Hobbs HDL NORMAL > or = 60 mg/dl - LOW CARDIOVASCULAR RISK <40 mg/dl - HIGH CARDIOVASCULAR RISK Normal [facility] Comment on above: Performed By: #### L IPID #### [facility] [address] [place] [address] Dr. Usama Hobbs LDL CALC NORMAL SEE BELOW Normal [facility] Comment on above: Result Comment: <100 mg/dl OPTIMAL 100 - 129 mg/dl NEAR OR ABOVE OPTIMAL 130 - 159 mg/dl BORDERLINE HIGH 160 - 189 mg/dl HIGH >190 mg/dl VERY HIGH Performed By: #### L IPID #### [facility] [address] [address] [address] Usama Hobbs Triglyceride [Mass/Vol] 42 mg/dL Normal <=150 [facility] Comment on above: Performed By: #### L IPID #### [facility] [address] [address] [address] Usama Hobbs VLDL CALC 8.4 mg/dL Normal [facility] Comment on above: Performed By: #### L IPID #### [facility] [address] [address] [address] Usama Hobbs Office Visiton 09-18-2022 Follow-up visit [id number] Cristal Gu Sr. 1955 M Date Provider Department Center 09/18[facility]2022 [facility] No family history on file Level of Service:50335 OR OFFICE/OUTPATIENT ESTABLISHED MOD MDM 30-39 MIN () Reason for Visit and Comments: Coronary Artery Disease [187] Peripheral Vascular Disease [458] Carotid Stenosis [Other] Hypertension [269786] Normal [facility] CBC W Auto Differential pane l (Bld)on 06-25-2022 Basophils (Bld) [#/Vol] <0.11 k/uL [facility] Basophils/100 WBC (Bld) 0.4 % [facility] Differential cell count method Nom (Bld) Auto [facility] Eosinophils (Bld) [#/Vol] 0.03 10*3/uL <0.46 k/uL [facility] Eosinophils/100 WBC (Bld) 0.6 % [facility] Erythrocyte distribution width (RBC) [Ratio] 14.1 % 11.5 - 15.0 % [facility] Hematocrit (Bld) [Volume fraction] 34.9 % Low 39.0 - 51.0 % [facility] Hemoglobin (Bld) [Mass/Vol] 12.5 g/dL Low 13.0 - 17.0 g/dL [facility] Immature granulocytes (Bld) [#/Vol] 0.03 10*3/uL <0.10 k/uL [facility] Immature granulocytes/100 WBC (Bld) 0.6 % [facility] Lymphocytes (Bld) [#/Vol] 0.75 10*3/uL Low 1.00 - 4.00 k/uL [facility] Lymphocytes/100 WBC (Bld) 14.0 % [facility] MCH (RBC) [Entitic mass] 32.9 pg 26.0 - 34.0 pg [facility] MCHC (RBC) [Mass/Vol] 35.8 g/dL 30.5 - 36.0 g/dL [facility] MCV (RBC) [Entitic vol] 91.8 fL 80.0 - 100.0 fL [facility] Monocytes (Bld) [#/Vol] 0.62 10*3/uL <0.87 k/uL [facility] Monocytes/100 WBC (Bld) 11.6 % [facility] Neutrophils (Bld) [#/Vol] 3.89 10*3/uL 1.45 - 7.50 k/uL [facility] Neutrophils/100 WBC (Bld) 72.8 % [facility] Nucleated RBC (Bld) [#/Vol] <0.01 k/uL [facility] Nucleated RBC/100 WBC (Bld) [Ratio] 0.0 /100 WBC [facility] Platelet mean volume (Bld) [Entitic vol] 9.8 fL 9.0 - 12.7 fL [facility] Platelets (Bld) [#/Vol] 208 10*3/uL 150 - 400 k/uL [facility] RBC (Bld) [#/Vol] 3.80 10*6/uL Low 4.20 - 6.00 m/uL [facility] WBC (Bld) [#/Vol] 5.34 10*3/uL 3.70 - 11.00 k/u L [facility] Comprehensive metabolic 2000 panelon 06-25-2022 Albumin [Mass/Vol] 4.4 g/dL 3.9 - 4.9 g/dL [facility] ALP [Catalytic activity/Vol] 72 U/L 38 - 113 U/L [facility] ALT [Catalytic activity/Vol] 27 U/L 10 - 54 U/L [facility] Anion gap [Moles/Vol] 12 mmol/L 9 - 18 mmol/L [facility] AST [Catalytic activity/Vol] 32 U/L 14 - 40 U/L [facility] Bilirubin [Mass/Vol] 0.7 mg/dL 0.2 - 1.3 mg/dL [facility] Calcium [Mass/Vol] 9.6 mg/dL 8.5 - 10.2 mg/dL [facility] Chloride [Moles/Vol] 97 mmol/L 97 - 105 mmol/L [facility] CO2 [Moles/Vol] 26 mmol/L 22 - 30 mmol/L [facility] Creatinine [Mass/Vol] 0.75 mg/dL 0.73 - 1.22 mg/dL [facility] Estimated Glomerular Filtration Rate 100 mL/min/1.73m >=60 mL/min/1.73m [facility] Glucose [Mass/Vol] 111 mg/dL High 74 - 99 mg/dL [facility] Potassium [Moles/Vol] 3.8 mmol/L 3.7 - 5.1 mmol/L [facility] Protein [Mass/Vol] 7.2 g/dL 6.3 - 8.0 g/dL [facility] Sodium [Moles/Vol] 135 mmol/L Low 136 - 144 mmol/L [facility] Urea nitrogen [Mass/Vol] 11 mg/dL 9 - 24 mg/dL [facility] CT CHEST W IVCONon 11-25-202 2 [facility] XR CHEST 2V FRONTAL/LATon [facility] MRI LSPINE WO W CONon 2021 MRI [...] by: BRANDON HENRY Date: 2022-05-23 19:51 Normal [facility] XR LSPINE MIN 4 VIEWSon 04-20 XR [...] by: TRUDY GUTIERREZ Date: 2022-05-01 17:27 Normal [facility] BONE [place] BODYon [place] [facility] BODY EXAMINATION: [place] [facility] BODY HISTORY: Primary malignant neoplasm of bronchus [...] by: BRANDON HENRY Date: 2022-04-12 21:44 Normal [facility] US CAROTID ART BILon US CAROTID ART JARED EXAMINATION: US CAROTID [...] BRANDON HENRY Date: 2022-03-22 17:14 Normal [facility] PRBC LEUKOREDUCEDon 02-11-20 ABO and Rh group Nom (Bld) Cross Match Result Compatible Unit Blood Type A Pos Unit Number [id number] Status Information Transfused Product ID Red Blood Cells Product Code [id number] Cross Match Result Compatible Unit Blood Type A Pos Unit Number [id number] Status Information Transfused Product ID Red Blood Cells Product Code [id number] Normal [facility] Comment on above: Performed By: #### P SAD #### [facility] [address] [place] [address] Dr. Usama Hobbs ABO RH RETYPEon 02-08-2022 ABO and Rh group Nom (Bld) DONE Normal [facility] Comment on above: Performed By: #### R ETYPE #### [facility] [address] [place] [address] Dr. Usama Hobbs LD LACTATE DEHYDROon 022 LDH [Catalytic activity/Vol] 186 U/L 135 - 225 U/L [facility] TYPE AND SCREENon 02-08-2022 TYPE AND SCREEN Negative Normal [facility] Comment on above: Performed By: #### P SAD #### [facility] [address] [place] [address] Dr. Usama Hobbs HEMOGRAM AND PLATELon 2021 Hematocrit (Bld) [Volume fraction] 21.0 % Critically low 42.0-54.0 [facility] Comment on above: Result Comment: dr haider marcos transfusionT&S ordered Performed By: #### B SALESFORCE TRAINER, CMP #### [facility] [address] [place] [address] Dr. Usama Hobbs Hemoglobin (Bld) [Mass/Vol] 7.3 g/dL Critically low 14.0-18.0 [facility] Comment on above: Performed By: #### B SAL[employer] TRAINER, CMP #### [facility] [address] [place] [address] Dr. Usama Hobbs MCH (RBC) [Entitic mass] 31.7 pg Normal 25.9-34.0 [facility] Comment on above: Performed By: #### B SAL[employer] TRAINER, CMP #### [facility] [address] [place] [address] Dr. Usama Hobbs MCHC (RBC) [Mass/Vol] 34.8 g/dL Normal 29.9-35.2 [facility] Comment on above: Performed By: #### B SAL[employer] TRAINER, CMP #### [facility] [address] [address] [address] Usama Hobbs MCV (RBC) [Entitic vol] 91.3 fL Normal 80.0-94.0 [facility] Comment on above: Performed By: #### B SAL[employer] TRAINER, CMP #### [facility] [address] [place] [address] Dr. Usama Hobbs PLT 89 103/ul Critically low 150-450 [facility] Comment on above: Performed By: #### B [employer] TRAINER, CMP #### [facility] [address] [place] [address] Dr. Usama Hobbs RBC 2.30 106/ul Critically low 4.70-6.10 [facility] Comment on above: Performed By: #### B [employer]ES[employer] TRAINER, CMP #### [facility] [address] [place] [address] Dr. Usama Hobbs WBC 2.0 103/ul Critically low 4.0-11.0 [facility] Comment on above: Performed By: #### B [employer]ES[employer] TRAINER, CMP #### [facility] [address] [place] [address] Dr. Usama Hobbs RETIC COUNTon 02-07-2022 Reticulocytes (Bld) [#/Vol] 0.25188 10*3/uL 0.018 - 0.100 M/uL [facility] Reticulocytes (Bld) [#/Vol]o n 02-07-2022 Reticulocytes/100 RBC (Bld) 2.3 % High 0.4 - 2.0 % [facility] [facility] XR CHEST 2V FRONTAL/LATon [facility] BNPon 12-07-2021 Natriuretic peptide B (Bld) [Mass/Vol] 140.0 pg/mL Normal <=900.0 [facility] Comment on above: Performed By: #### P SAD #### [facility] [address] [place] [address] Dr. Usama Hobbs CBC AUTO DIFFon 12-07-2021 BASO # 0.0 103/ul Normal 0.0-0.1 [facility] Comment on above: Performed By: #### B SALESFORCE TRAINER, CMP #### [facility] [address] [place] [address] Dr. Usama Hobbs Basophils/100 WBC (Bld) 0.2 % Normal 0.2-2.0 [facility] Comment on above: Performed By: #### B SALESFORCE TRAINER, CMP #### [facility] [address] [place] [address] Dr. Usama Hobbs EO # 0.1 103/ul Normal 0.0-0.7 [facility] Comment on above: Performed By: #### B SALESFORCE TRAINER, CMP #### [facility] [address] [place] [address] Dr. Usama Hobbs Eosinophils/100 WBC (Bld) 2.0 % Normal 0.9-7.0 [facility] Comment on above: Performed By: #### B SALESFORCE TRAINER, CMP #### [facility] [address] [place] [address] Dr. Usama Hobbs Erythrocyte distribution width (RBC) [Ratio] 12.9 % Normal 11.0-15.0 [facility] Comment on above: Performed By: #### B SALESFORCE TRAINER, CMP #### [facility] [address] [place] [address] Dr. Usama Hobbs Hematocrit (Bld) [Volume fraction] 32.6 % Critically low 42.0-54.0 [facility] Comment on above: Performed By: #### B SALESFORCE TRAINER, CMP #### [facility] [address] [place] [address] Dr. Usama Hobbs Hemoglobin (Bld) [Mass/Vol] 11.0 g/dL Critically low 14.0-18.0 [facility] Comment on above: Performed By: #### B SALESFORCE TRAINER, CMP #### [facility] [address] [place] [address] Dr. Usama Hobbs IG # 0.02 10e3/ul Normal 0.00-0.03 [facility] Comment on above: Performed By: #### B SALESFORCE TRAINER, CMP #### [facility] [address] [place] [address] Dr. Usama Hobbs IG % 0.4 % Normal 0.0-0.5 [facility] Comment on above: Performed By: #### B SALESFORCE TRAINER, CMP #### [facility] [address] [place] [address] Dr. Usama Hobbs LYMPH # 0.6 103/ul Critically low 1.2-3.8 [facility] Comment on above: Performed By: #### B SALESFORCE TRAINER, CMP #### [facility] [address] [place] [address] Dr. Usama Hobbs Lymphocytes/100 WBC (Bld) 12.9 % Critically low 20.5-60.0 [facility] Comment on above: Performed By: #### B SALESFORCE TRAINER, CMP #### [facility] [address] [place] [address] Dr. Usama Hobbs MANUAL DIFF REQ NO Normal [facility] Comment on above: Performed By: #### B SALESFORCE TRAINER, CMP #### [facility] [address] [place] [address] Dr. Usama Hobbs MCH (RBC) [Entitic mass] 30.1 pg Normal 25.9-34.0 [facility] Comment on above: Performed By: #### B SALESFORCE TRAINER, CMP #### [facility] [address] [place] [address] Dr. Usama Hobbs MCHC (RBC) [Mass/Vol] 33.7 g/dL Normal 29.9-35.2 [facility] Comment on above: Performed By: #### B SALESFORCE TRAINER, CMP #### [facility] [address] [place] [address] Dr. Usama Hobbs MCV (RBC) [Entitic vol] 89.1 fL Normal 80.0-94.0 [facility] Comment on above: Performed By: #### B SALESFORCE TRAINER, CMP #### [facility] [address] [place] [address] Dr. Usama Hobbs MONO # 0.3 103/ul Normal 0.3-0.8 [facility] Comment on above: Performed By: #### B SALESFORCE TRAINER, CMP #### [facility] [address] [place] [address] Dr. Usama Hobbs Monocytes/100 WBC (Bld) 5.1 % Normal 1.7-12.0 [facility] Comment on above: Performed By: #### B SALESFORCE TRAINER, CMP #### [facility] [address] [place] [address] Dr. Usama Hobbs NEUT # 3.9 103/ul Normal 1.4-6.5 [facility] Comment on above: Performed By: #### B SALESFORCE TRAINER, CMP #### [facility] [address] [place] [address] Dr. Usama Hobbs Neutrophils/100 WBC (Bld) 79.4 % Critically high 43.0-75.0 [facility] Comment on above: Performed By: #### B SALESFORCE TRAINER, CMP #### [facility] [address] [place] [address] Dr. Usama Hobbs Platelet mean volume (Bld) [Entitic vol] 10.9 fL Normal 9.5-13.5 [facility] Comment on above: Performed By: #### B SALESFORCE TRAINER, CMP #### [facility] [address] [place] [address] Dr. Usama Hobbs PLT 182 103/ul Normal 150-450 [facility] Comment on above: Performed By: #### B SALESFORCE TRAINER, CMP #### [facility] [address] [place] [address] Dr. Usama Hobbs RBC 3.66 106/ul Critically low 4.70-6.10 [facility] Comment on above: Performed By: #### B SALESFORCE TRAINER, CMP #### [facility] [address] [place] [address] Dr. Usama Hobbs WBC 4.9 103/ul Normal 4.0-11.0 [facility] Comment on above: Performed By: #### B SALESFORCE TRAINER, CMP #### [facility] [address] [place] [address] Dr. Usama Hobbs TSHon 12-07-2021 TSH 1.474 uIU/mL Normal 0.358-3.740 [facility] Comment on above: Performed By: #### P SAD #### [facility] [address] [place] [address] Dr. Usama Hobbs TSH RANGE SEE BELOW Normal [facility] Comment on above: Result Comment: <0.3 4 UIU/ml HYPERTHYROID 0.34-5.60 UIU/ml EUTHYROID >5.60 UIU/ml HYPOTHYROID Performed By: #### P SAD #### [facility] [id number] Usama Hobbs URIC ACID BLOODon 11-26-2021 Urate [Mass/Vol] 7.0 mg/dL 4.0 - 8.1 mg/dL [facility] Basic metabolic 2000 panelon 11-21-2021 Anion gap [Moles/Vol] 12 mmol/L 9 - 18 mmol/L [facility] Calcium [Mass/Vol] 9.2 mg/dL 8.5 - 10.2 mg/dL [facility] Chloride [Moles/Vol] 102 mmol/L 97 - 105 mmol/L [facility] CO2 [Moles/Vol] 25 mmol/L 22 - 30 mmol/L [facility] Creatinine [Mass/Vol] 1.86 mg/dL High 0.73 - 1.22 mg/dL [facility] Estimated Glomerular Filtration Rate 40 mL/min/1.73m Low >=60 mL/min/1.73m [facility] Glucose [Mass/Vol] 87 mg/dL 74 - 99 mg/dL [facility] Potassium [Moles/Vol] 3.7 mmol/L 3.7 - 5.1 mmol/L [facility] Sodium [Moles/Vol] 139 mmol/L 136 - 144 mmol/L [facility] Urea nitrogen [Mass/Vol] 29 mg/dL High 9 - 24 mg/dL [facility] Basic metabolic 1999 panelon 11-19-2021 Anion gap [Moles/Vol] 12 mmol/L 9 - 18 mmol/L [facility] Calcium [Mass/Vol] 9.2 mg/dL 8.5 - 10.2 mg/dL [facility] Chloride [Moles/Vol] 104 mmol/L 97 - 105 mmol/L [facility] CO2 [Moles/Vol] 24 mmol/L 22 - 30 mmol/L [facility] Creatinine [Mass/Vol] 2.09 mg/dL High 0.73 - 1.22 mg/dL [facility] Estimated Glomerular Filtration Rate 35 mL/min/1.73m Low >=60 mL/min/1.73m [facility] Glucose [Mass/Vol] 79 mg/dL 74 - 99 mg/dL [facility] Potassium [Moles/Vol] 3.6 mmol/L Low 3.7 - 5.1 mmol/L [facility] Sodium [Moles/Vol] 140 mmol/L 136 - 144 mmol/L [facility] Urea nitrogen [Mass/Vol] 27 mg/dL High 9 - 24 mg/dL [facility] BNPon 11-18-2021 Natriuretic peptide B (Bld) [Mass/Vol] 2644.0 pg/mL Critically high <=900.0 [facility] Comment on above: Performed By: #### B SALESFORCE TRAINER, CMP #### [facility] [address] [place] [address] Dr. Usama Hobbs CBC W MANUAL DIFFon 11-19-19 22 ATYPICAL LYMPH # Normal [facility] Comment on above: Performed By: #### C LUIS #### [facility] [address] [place] [address] Dr. Usama Hobbs ATYPICAL LYMPH % Normal [facility] Comment on above: Performed By: #### C LUIS #### [facility] [address] [place] [address] Dr. Usama Hobbs BAND # 0.0 103/ul Normal 0.0-0.3 [facility] Comment on above: Performed By: #### C LUIS #### [facility] [address] [place] [address] Dr. Usama Hobbs BAND % 2 % Normal 0-5 [facility] Comment on above: Performed By: #### C BCMAN #### [facility] [address] [place] [address] Dr. Usama Hobbs BASOM # 0.00 103/ul Normal 0.00-0.10 [facility] Comment on above: Performed By: #### C YEMAN #### [facility] [address] [place] [address] Dr. Usama Hobbs BASOM % 0.0 % Critically low 0.2-2.0 [facility] Comment on above: Performed By: #### C BCMAN #### [facility] [address] [place] [address] Dr. Usama Hobbs BLAST # Normal [facility] Comment on above: Performed By: #### C BCMAN #### [facility] [address] [place] [address] Dr. Usama Hobbs BLAST % Normal [facility] Comment on above: Performed By: #### C BCANATOLY #### [facility] [address] [place] [address] Dr. Usama Hobbs CORRECTED WBC Normal 4.0-11.0 [facility] Comment on above: Performed By: #### C BCANATOLY #### [facility] [address] [place] [address] Dr. Usama Hobbs EOS # 0.10 103/ul Normal 0.00-0.70 [facility] Comment on above: Performed By: #### C LUIS #### [facility] [address] [place] [address] Dr. Usama Hobbs EOS% 5.0 % Normal 0.9-7.0 [facility] Comment on above: Performed By: #### C BCANATOLY #### [facility] [address] [place] [address] Dr. Usama Hobbs HCT 28.8 % Critically low 42.0-54.0 [facility] Comment on above: Performed By: #### C BCANATOLY #### [facility] [address] [place] [address] Dr. Usama Hobbs HGB 9.4 g/dl Critically low 14.0-18.0 [facility] Comment on above: Performed By: #### C BCANATOLY #### [facility] [address] [place] [address] Dr. Usama Hobbs LYMPHM # 0.71 103/ul Critically low 1.20-3.80 [facility] Comment on above: Performed By: #### C BCMAN #### [facility] [address] [place] [address] Dr. Usama Hobbs LYMPHM% 34.0 % Normal 20.5-60.0 [facility] Comment on above: Performed By: #### C BCMAN #### [facility] [address] [place] [address] Dr. Usama Hobbs MCH 30.0 pg Normal 25.9-34.0 [facility] Comment on above: Performed By: #### C LUIS #### [facility] [address] [place] [address] Dr. Usama Hobbs MCHC 32.6 g/dl Normal 29.9-35.2 [facility] Comment on above: Performed By: #### C LUIS #### [facility] [address] [place] [address] Dr. Usama Hobbs MCV 92.0 fL Normal 80.0-94.0 [facility] Comment on above: Performed By: #### C LUIS #### [facility] [address] [place] [address] Dr. Usama Hobbs METAMYELOCYTE # Normal [facility] Comment on above: Performed By: #### Kyara SMITH #### [facility] [address] [place] [address] Dr. Usama Hobbs METAMYELOCYTE % Normal [facility] Comment on above: Performed By: #### Kyara SMITH #### [facility] [address] [place] [address] Dr. Usama Hobbs MONOM# 0.10 103/ul Critically low 0.30-0.80 [facility] Comment on above: Performed By: #### Kyara SMITH #### [facility] [address] [place] [address] Dr. Usama Hobbs MONOM% 5.0 % Normal 1.7-12.0 [facility] Comment on above: Performed By: #### Kyara SMITH #### [facility] [address] [place] [address] Dr. Usama Hobbs MPV 10.7 fL Normal 9.5-13.5 [facility] Comment on above: Performed By: #### C LUIS #### [facility] [address] [place] [address] Dr. Usama Hobbs MYELOCYTE # Normal [facility] Comment on above: Performed By: #### C LUIS #### [facility] [address] [address] [address] Usama Hobbs MYELOCYTE % Normal [facility] Comment on above: Performed By: #### C BCMAN #### [facility] [address] [place] [address] Dr. Usama Hobbs NRBC Normal [facility] Comment on above: Performed By: #### C BCANATOLY #### [facility] [address] [address] [address] Usama Hobbs PLT 149 103/ul Critically low 150-450 [facility] Comment on above: Performed By: #### C BCANATOLY #### [facility] [address] [place] [address] Dr. Usama Hobbs RBC 3.13 106/ul Critically low 4.70-6.10 [facility] Comment on above: Performed By: #### C LUIS #### [facility] [address] [place] [address] Dr. Usama Hobbs RDW 12.3 % Normal 11.0-15.0 [facility] Comment on above: Performed By: #### C BCANATOLY #### [facility] [address] [place] [address] Dr. Usama Hobbs SEG # 1.13 103/ul Critically low 1.40-6.50 [facility] Comment on above: Performed By: #### C BCANATOLY #### [facility] [address] [place] [address] Dr. Usama Hobbs SEG % 54.0 % Normal 43.0-75.0 [facility] Comment on above: Performed By: #### C BCANATOLY #### [facility] [address] [place] [address] Dr. Usama Hobbs WBC 2.1 103/ul Critically low 4.0-11.0 [facility] Comment on above: Performed By: #### C BCMAN #### [facility] [address] [place] [address] Dr. Usama Hobbs CULTURE SPUTUMon 11-18-2021 CULTURE SPUTUM Culture Observations: Normal respiratory callie also seen Isolate 1 Adwoa Albicans Growth of Normal [facility] Comment on above: Performed By: #### P SAD #### [facility] [address] [address] [address] Usama Hobbs PROF 14(COMP METB)on 022 Albumin [Mass/Vol] 2.8 g/dL Critically low 3.4-5.0 [facility] Comment on above: Performed By: #### B SALESFORCE TRAINER, CMP #### [facility] [address] [place] [address] Dr. Usama Hobbs Albumin/Globulin [Mass ratio] 0.8 {ratio} Normal [facility] Comment on above: Performed By: #### B SALESFORCE TRAINER, CMP #### [facility] [address] [place] [address] Dr. Usama Hobbs ALP [Catalytic activity/Vol] 56 U/L Normal 46-116 [facility] Comment on above: Performed By: #### B SALESFORCE TRAINER, CMP #### [facility] [address] [place] [address] Dr. Usama Hobbs ALT [Catalytic activity/Vol] 22 U/L Normal 16-63 [facility] Comment on above: Performed By: #### B SALESFORCE TRAINER, CMP #### [facility] [address] [place] [address] Dr. Usama Hobbs Anion gap [Moles/Vol] 14.5 mmol/L Normal [facility] Comment on above: Performed By: #### B SALESFORCE TRAINER, CMP #### [facility] [address] [place] [address] Dr. Usama Hobbs AST [Catalytic activity/Vol] 17 U/L Normal 15-37 [facility] Comment on above: Performed By: #### B SALESFORCE TRAINER, CMP #### [facility] [address] [place] [address] Dr. Usama Hobbs Bilirubin [Mass/Vol] 0.4 mg/dL Normal 0.2-1.0 [facility] Comment on above: Performed By: #### B SALESFORCE TRAINER, CMP #### [facility] [address] [place] [address] Dr. Usama Hobbs Calcium [Mass/Vol] 7.8 mg/dL Critically low 8.5-10.1 [facility] Comment on above: Performed By: #### B SALESFORCE TRAINER, CMP #### [facility] [address] [place] [address] Dr. Usama Hobbs Chloride [Moles/Vol] 104 mmol/L Normal 98-107 [facility] Comment on above: Performed By: #### B SALESFORCE TRAINER, CMP #### [facility] [address] [place] [address] Dr. Usama Hobbs CO2 [Moles/Vol] 25.0 mmol/L Normal 21.0-32.0 [facility] Comment on above: Performed By: #### B SALESFORCE TRAINER, CMP #### [facility] [address] [place] [address] Dr. Usama Hobbs Creatinine [Mass/Vol] 1.97 mg/dL Critically high 0.70-1.30 [facility] Comment on above: Performed By: #### B SALESFORCE TRAINER, CMP #### [facility] [address] [place] [address] Dr. Usama Hobbs EGFR-AF BULGARIAN 42 mL/min/1.73m2 Critically low >=60 [facility] Comment on above: Performed By: #### B SALESFORCE TRAINER, CMP #### [facility] [address] [place] [address] Dr. Usama Hobbs EGFR-NON AF BULGARIAN 34 mL/min/1.73m2 Critically low >=60 [facility] Comment on above: Performed By: #### B SALESFORCE TRAINER, CMP #### [facility] [address] [place] [address] Dr. Usama Hobbs Globulin (S) [Mass/Vol] 3.3 g/dL Normal [facility] Comment on above: Performed By: #### B SALESFORCE TRAINER, CMP #### [facility] [address] [place] [address] Dr. Usama Hobbs Glucose [Mass/Vol] 91 mg/dL Normal 74-106 [facility] Comment on above: Performed By: #### B SALESFORCE TRAINER, CMP #### [facility] [address] [place] [address] Dr. Usama Hobbs Potassium [Moles/Vol] 3.5 mmol/L Normal 3.5-5.1 [facility] Comment on above: Performed By: #### B SALESFORCE TRAINER, CMP #### [facility] [address] [place] [address] Dr. Usama Hobbs Protein [Mass/Vol] 6.1 g/dL Normal 6.1-8.2 [facility] Comment on above: Performed By: #### B SALESFORCE TRAINER, CMP #### [facility] [address] [place] [address] Dr. Usama Hobbs Sodium [Moles/Vol] 140 mmol/L Normal 136-145 [facility] Comment on above: Performed By: #### B SALESFORCE TRAINER, CMP #### [facility] [address] [place] [address] Dr. Usama Hobbs Urea nitrogen [Mass/Vol] 18.0 mg/dL Normal 7.0-18.0 [facility] Comment on above: Performed By: #### B SALESFORCE TRAINER, CMP #### [facility] [address] [place] [address] Dr. Usama Hobbs Urea nitrogen/Creatinine [Mass ratio] 9.1 mg/mg Normal [facility] Comment on above: Performed By: #### B SALESFORCE TRAINER, CMP #### [facility] [address] [place] [address] Dr. Usama Hobbs T3, TOTAL (TRIIODOTHYRONINE) on 11-18-2021 T3, TOTAL 101 ng/dL Normal 71-180 [facility] Comment on above: Performed By: #### T 3TOTAL #### [facility] [address] [place] [address] Dr. Usama Hobbs BNPon 11-17-2021 Natriuretic peptide B (Bld) [Mass/Vol] 6047.0 pg/mL Critically high <=900.0 [facility] Comment on above: Performed By: #### C MP, BNP #### [facility] [address] [place] [address] Dr. Usama Hobbs CBC AUTO DIFFon 11-17-2021 BASO # 0.0 103/ul Normal 0.0-0.1 [facility] Comment on above: Performed By: #### C BC #### [facility] [address] [place] [address] Dr. Usama Hobbs Basophils/100 WBC (Bld) 0.4 % Normal 0.2-2.0 [facility] Comment on above: Performed By: #### C BC #### [facility] [address] [place] [address] Dr. Usama Hobbs EO # 0.1 103/ul Normal 0.0-0.7 [facility] Comment on above: Performed By: #### C BC #### [facility] [address] [place] [address] Dr. Usama Hobbs Eosinophils/100 WBC (Bld) 6.2 % Normal 0.9-7.0 [facility] Comment on above: Performed By: #### C BC #### [facility] [address] [place] [address] Dr. Usama Hobbs Erythrocyte distribution width (RBC) [Ratio] 12.3 % Normal 11.0-15.0 [facility] Comment on above: Performed By: #### C BC #### [facility] [address] [place] [address] Dr. Usama Hobbs Hematocrit (Bld) [Volume fraction] 31.8 % Critically low 42.0-54.0 [facility] Comment on above: Performed By: #### C BC #### [facility] [address] [place] [address] Dr. Usama Hobbs Hemoglobin (Bld) [Mass/Vol] 10.5 g/dL Critically low 14.0-18.0 [facility] Comment on above: Performed By: #### C BC #### [facility] [address] [place] [address] Dr. Usama Hobbs IG # 0.01 10e3/ul Normal 0.00-0.03 [facility] Comment on above: Performed By: #### C BC #### [facility] [address] [place] [address] Dr. Usama Hobbs IG % 0.4 % Normal 0.0-0.5 [facility] Comment on above: Performed By: #### C BC #### [facility] [address] [place] [address] Dr. Usama Hobbs LYMPH # 0.6 103/ul Critically low 1.2-3.8 [facility] Comment on above: Performed By: #### C BC #### [facility] [address] [address] [address] Usama Hobbs Lymphocytes/100 WBC (Bld) 27.4 % Normal 20.5-60.0 [facility] Comment on above: Performed By: #### C BC #### [facility] [address] [place] [address] Dr. Usama Hobbs MANUAL DIFF REQ NO Normal [facility] Comment on above: Performed By: #### C BC #### [facility] [address] [place] [address] Dr. Usama Hobbs MCH (RBC) [Entitic mass] 30.3 pg Normal 25.9-34.0 [facility] Comment on above: Performed By: #### C BC #### [facility] [address] [place] [address] Dr. Usama Hobbs MCHC (RBC) [Mass/Vol] 33.0 g/dL Normal 29.9-35.2 [facility] Comment on above: Performed By: #### C BC #### [facility] [address] [place] [address] Dr. Usama Hobbs MCV (RBC) [Entitic vol] 91.6 fL Normal 80.0-94.0 [facility] Comment on above: Performed By: #### C BC #### [facility] [address] [place] [address] Dr. Usama Hobbs MONO # 0.4 103/ul Normal 0.3-0.8 [facility] Comment on above: Performed By: #### C BC #### [facility] [address] [place] [address] Dr. Usama Hobbs Monocytes/100 WBC (Bld) 17.3 % Critically high 1.7-12.0 [facility] Comment on above: Performed By: #### C BC #### [facility] [address] [address] [address] Usama Hobbs NEUT # 1.1 103/ul Critically low 1.4-6.5 [facility] Comment on above: Performed By: #### C BC #### [facility] [address] [address] [address] Usama Hobbs Neutrophils/100 WBC (Bld) 48.3 % Normal 43.0-75.0 [facility] Comment on above: Performed By: #### C BC #### [facility] [address] [place] [address] Dr. Usama Hobbs Platelet mean volume (Bld) [Entitic vol] 10.9 fL Normal 9.5-13.5 [facility] Comment on above: Performed By: #### C BC #### [facility] [address] [place] [address] Dr. Usama Hobbs PLT 174 103/ul Normal 150-450 [facility] Comment on above: Performed By: #### C BC #### [facility] [address] [place] [address] Dr. Usama Hobbs RBC 3.47 106/ul Critically low 4.70-6.10 [facility] Comment on above: Performed By: #### C BC #### [facility] [address] [place] [address] Dr. Usama Hobbs WBC 2.3 103/ul Critically low 4.0-11.0 [facility] Comment on above: Performed By: #### C BC #### [facility] [address] [place] [address] Dr. Usama Hobbs PROF 14(COMP METB)on 11-17- 022 Albumin [Mass/Vol] 3.3 g/dL Critically low 3.4-5.0 [facility] Comment on above: Performed By: #### C MP, BNP #### [facility] [address] [place] [address] Dr. Usama Hobbs Albumin/Globulin [Mass ratio] 0.9 {ratio} Normal [facility] Comment on above: Performed By: #### C MP, BNP #### [facility] [address] [address] [address] Usama Hobbs ALP [Catalytic activity/Vol] 73 U/L Normal 46-116 [facility] Comment on above: Performed By: #### C MP, BNP #### [facility] [address] [address] [address] Usama Hobbs ALT [Catalytic activity/Vol] 31 U/L Normal 16-63 [facility] Comment on above: Performed By: #### C MP, BNP #### [facility] [address] [place] [address] Dr. Usama Hobbs Anion gap [Moles/Vol] 13.8 mmol/L Normal [facility] Comment on above: Performed By: #### C MP, BNP #### [facility] [address] [place] [address] Dr. Usama Hobbs AST [Catalytic activity/Vol] 22 U/L Normal 15-37 [facility] Comment on above: Performed By: #### C MP, BNP #### [facility] [address] [place] [address] Dr. Usama Hobbs Bilirubin [Mass/Vol] 0.6 mg/dL Normal 0.2-1.0 [facility] Comment on above: Performed By: #### C MP, BNP #### [facility] [address] [place] [address] Dr. Usama Hobbs Calcium [Mass/Vol] 8.3 mg/dL Critically low 8.5-10.1 [facility] Comment on above: Performed By: #### C MP, BNP #### [facility] [address] [place] [address] Dr. Usama Hobbs Chloride [Moles/Vol] 105 mmol/L Normal 98-107 [facility] Comment on above: Performed By: #### C MP, BNP #### [facility] [address] [place] [address] Dr. Usama Hobbs CO2 [Moles/Vol] 26.1 mmol/L Normal 21.0-32.0 [facility] Comment on above: Performed By: #### C MP, BNP #### [facility] [address] [address] [address] Usama Hobbs Creatinine [Mass/Vol] 2.05 mg/dL Critically high 0.70-1.30 [facility] Comment on above: Performed By: #### C MP, BNP #### [facility] [address] [address] [address] Usama Hobbs EGFR-AF BULGARIAN 40 mL/min/1.73m2 Critically low >=60 [facility] Comment on above: Performed By: #### C MP, BNP #### [facility] [address] [address] [address] Usama Hobbs EGFR-NON AF BULGARIAN 33 mL/min/1.73m2 Critically low >=60 [facility] Comment on above: Performed By: #### C MP, BNP #### [facility] [address] [address] [address] Usama Hobbs Globulin (S) [Mass/Vol] 3.7 g/dL Normal [facility] Comment on above: Performed By: #### C MP, BNP #### [facility] [address] [address] [address] Usama Hobbs Glucose [Mass/Vol] 86 mg/dL Normal 74-106 [facility] Comment on above: Performed By: #### C MP, BNP #### [facility] [address] [address] [address] Usama Hobbs Potassium [Moles/Vol] 3.9 mmol/L Normal 3.5-5.1 [facility] Comment on above: Performed By: #### C MP, BNP #### [facility] [address] [address] [address] Usama Hobbs Protein [Mass/Vol] 7.0 g/dL Normal 6.1-8.2 [facility] Comment on above: Performed By: #### C MP, BNP #### [facility] [address] [address] [address] Usama Hobbs Sodium [Moles/Vol] 141 mmol/L Normal 136-145 [facility] Comment on above: Performed By: #### C MP, BNP #### [facility] [address] [address] [address] Usama Hobbs Urea nitrogen [Mass/Vol] 21.0 mg/dL Critically high 7.0-18.0 [facility] Comment on above: Performed By: #### C MP, BNP #### [facility] [address] [address] [address] Usama Hobbs Urea nitrogen/Creatinine [Mass ratio] 10.2 mg/mg Normal [facility] Comment on above: Performed By: #### C MP, BNP #### [facility] [address] [address] [address] Usama Hobbs Basic metabolic 2000 panelon 11-16-2021 Anion gap [Moles/Vol] 16 mmol/L 9 - 18 mmol/L [facility] Calcium [Mass/Vol] 9.2 mg/dL 8.5 - 10.2 mg/dL [facility] Chloride [Moles/Vol] 102 mmol/L 97 - 105 mmol/L [facility] CO2 [Moles/Vol] 20 mmol/L Low 22 - 30 mmol/L [facility] Creatinine [Mass/Vol] 2.33 mg/dL High 0.73 - 1.22 mg/dL [facility] Estimated Glomerular Filtration Rate 30 mL/min/1.73m Low >=60 mL/min/1.73m [facility] Glucose [Mass/Vol] 78 mg/dL 74 - 99 mg/dL [facility] Potassium [Moles/Vol] 3.9 mmol/L 3.7 - 5.1 mmol/L [facility] Sodium [Moles/Vol] 138 mmol/L 136 - 144 mmol/L [facility] Urea nitrogen [Mass/Vol] 27 mg/dL High 9 - 24 mg/dL [facility] CBC W MANUAL DIFFon 11-17-19 22 ATYPICAL LYMPH # Normal [facility] Comment on above: Performed By: #### B SALESFORCE TRAINER, CMP #### [facility] [address] [place] [address] Dr. Usama Hobbs ATYPICAL LYMPH % Normal [facility] Comment on above: Performed By: #### B SALESFORCE TRAINER, CMP #### [facility] [address] [address] [address] Usama Hobbs BAND # 0.0 103/ul Normal 0.0-0.3 [facility] Comment on above: Performed By: #### B SALESFORCE TRAINER, CMP #### [facility] [address] [place] [address] Dr. Usama Hobbs BAND % 0 % Normal 0-5 [facility] Comment on above: Performed By: #### B SALESFORCE TRAINER, CMP #### [facility] [address] [place] [address] Dr. Usama Hobbs BASOM # 0.00 103/ul Normal 0.00-0.10 [facility] Comment on above: Performed By: #### B SALESFORCE TRAINER, CMP #### [facility] [address] [place] [address] Dr. Usama Hobbs BASOM % 0.0 % Critically low 0.2-2.0 [facility] Comment on above: Performed By: #### B SALESFORCE TRAINER, CMP #### [facility] [address] [place] [address] Dr. Usama Hobbs BLAST # Normal [facility] Comment on above: Performed By: #### B SALESFORCE TRAINER, CMP #### [facility] [address] [place] [address] Dr. Usama Hobbs BLAST % Normal [facility] Comment on above: Performed By: #### B SALESFORCE TRAINER, CMP #### [facility] [address] [place] [address] Dr. Usama Hobbs CORRECTED WBC Normal 4.0-11.0 [facility] Comment on above: Performed By: #### B SALESFORCE TRAINER, CMP #### [facility] [address] [place] [address] Dr. Usama Hobbs EOS # 0.14 103/ul Normal 0.00-0.70 [facility] Comment on above: Performed By: #### B SALESFORCE TRAINER, CMP #### [facility] [address] [place] [address] Dr. Usama Hobbs EOS% 8.0 % Critically high 0.9-7.0 [facility] Comment on above: Performed By: #### B SALESFORCE TRAINER, CMP #### [facility] [address] [place] [address] Dr. Usama Hobbs HCT 28.7 % Critically low 42.0-54.0 [facility] Comment on above: Performed By: #### B SALESFORCE TRAINER, CMP #### [facility] [address] [address] [address] Usama Hobbs HGB 9.7 g/dl Critically low 14.0-18.0 [facility] Comment on above: Performed By: #### B SALESFORCE TRAINER, CMP #### [facility] [address] [address] [address] Usama Hobbs LYMPHM # 0.59 103/ul Critically low 1.20-3.80 [facility] Comment on above: Performed By: #### B SALESFORCE TRAINER, CMP #### [facility] [address] [place] [address] Dr. Usama Hobbs LYMPHM% 33.0 % Normal 20.5-60.0 [facility] Comment on above: Performed By: #### B SALESFORCE TRAINER, CMP #### [facility] [address] [place] [address] Dr. Usama Hobbs MCH 30.9 pg Normal 25.9-34.0 [facility] Comment on above: Performed By: #### B SALESFORCE TRAINER, CMP #### [facility] [address] [place] [address] Dr. Usama Hobbs MCHC 33.8 g/dl Normal 29.9-35.2 [facility] Comment on above: Performed By: #### B SALESFORCE TRAINER, CMP #### [facility] [address] [place] [address] Dr. Usama Hobbs MCV 91.4 fL Normal 80.0-94.0 [facility] Comment on above: Performed By: #### B SALESFORCE TRAINER, CMP #### [facility] [address] [place] [address] Dr. Usama Hobbs METAMYELOCYTE # 0.0 103/ul Normal [facility] Comment on above: Performed By: #### B SALESFORCE TRAINER, CMP #### [facility] [address] [place] [address] Dr. Usama Hobbs METAMYELOCYTE % 1 % Normal [facility] Comment on above: Performed By: #### B SALESFORCE TRAINER, CMP #### [facility] [address] [place] [address] Dr. Usama Hobbs MONOM# 0.14 103/ul Critically low 0.30-0.80 [facility] Comment on above: Performed By: #### B SALESFORCE TRAINER, CMP #### [facility] [address] [place] [address] Dr. Usama Hobbs MONOM% 8.0 % Normal 1.7-12.0 [facility] Comment on above: Performed By: #### B SALESFORCE TRAINER, CMP #### [facility] [address] [place] [address] Dr. Usama Hobbs MPV 10.5 fL Normal 9.5-13.5 [facility] Comment on above: Performed By: #### B SALESFORCE TRAINER, CMP #### [facility] [address] [place] [address] Dr. Usama Hobbs MYELOCYTE # 0.1 103/ul Normal [facility] Comment on above: Performed By: #### B SALESFORCE TRAINER, CMP #### [facility] [address] [place] [address] Dr. Usama Hobbs MYELOCYTE % 5 % Normal [facility] Comment on above: Performed By: #### B SALESFORCE TRAINER, CMP #### [facility] [address] [place] [address] Dr. Usama Hobbs NRBC Normal [facility] Comment on above: Performed By: #### B SALESFORCE TRAINER, CMP #### [facility] [address] [place] [address] Dr. Usama Hobbs PLT 163 103/ul Normal 150-450 [facility] Comment on above: Performed By: #### B SALESFORCE TRAINER, CMP #### [facility] [address] [place] [address] Dr. Usama Hobbs RBC 3.14 106/ul Critically low 4.70-6.10 [facility] Comment on above: Performed By: #### B SALESFORCE TRAINER, CMP #### [facility] [address] [place] [address] Dr. Usama Hobbs RDW 12.4 % Normal 11.0-15.0 [facility] Comment on above: Performed By: #### B SALESFORCE TRAINER, CMP #### [facility] [address] [address] [address] Usama Hobbs SEG # 0.81 103/ul Critically low 1.40-6.50 [facility] Comment on above: Performed By: #### B SALESFORCE TRAINER, CMP #### [facility] [address] [address] [address] Usama Hobbs SEG % 45.0 % Normal 43.0-75.0 [facility] Comment on above: Performed By: #### B SALESFORCE TRAINER, CMP #### [facility] [address] [address] [address] Usama Hobbs WBC 1.8 103/ul Critically low 4.0-11.0 [facility] Comment on above: Performed By: #### B SALESFORCE TRAINER, CMP #### [facility] [address] [address] [address] HEAD WO CONon [...] JOSUE SINGH Date: 2021-11-16 18:41 Normal [facility] Covid-19 PCR (CVDTB)on 10-20 SARS-CoV-2 (COVID-19) RNA TONYA+probe Ql (Unsp spec) Not detected Normal NOT DETECTED [facility] Comment on above: Result Comment: This test is not yet approved or cleared by the [place] FDA. When there are no FDA-approved or cleared tests available, and other criteria are met, FDA can make tests available under an emergency access mechanism called an Emergency Use Authorization (EUA). The EUA for this test is supported by the [place] of Health and Human Service's (HHS's) declaration [...] consistent with SARS-CoV-2. Performed By: #### B SALESFORCE TRAINER, CMP #### [facility] [address] [place] [address] Dr. Usama Hobbs PROF 14(COMP METB)on 022 Albumin [Mass/Vol] 3.3 g/dL Critically low 3.4-5.0 [facility] Comment on above: Performed By: #### P SAD #### [facility] [address] [place] [address] Dr. Usama Hobbs Albumin/Globulin [Mass ratio] 0.9 {ratio} Normal [facility] Comment on above: Performed By: #### P SAD #### [facility] [address] [place] [address] Dr. Usama Hobbs ALP [Catalytic activity/Vol] 78 U/L Normal 46-116 [facility] Comment on above: Performed By: #### P SAD #### [facility] [address] [place] [address] Dr. Usama Hobbs ALT [Catalytic activity/Vol] 33 U/L Normal 16-63 [facility] Comment on above: Performed By: #### P SAD #### [facility] [address] [place] [address] Dr. Usama Hobbs Anion gap [Moles/Vol] 9.8 mmol/L Normal [facility] Comment on above: Performed By: #### P SAD #### [facility] [address] [place] [address] Dr. Usama Hobbs AST [Catalytic activity/Vol] 25 U/L Normal 15-37 [facility] Comment on above: Performed By: #### P SAD #### [facility] [address] [address] [address] Usama Hobbs Bilirubin [Mass/Vol] 0.4 mg/dL Normal 0.2-1.0 [facility] Comment on above: Performed By: #### P SAD #### [facility] [address] [address] [address] Usama Hobbs Calcium [Mass/Vol] 8.1 mg/dL Critically low 8.5-10.1 [facility] Comment on above: Performed By: #### P SAD #### [facility] [address] [address] [address] Usama Hobbs Chloride [Moles/Vol] 102 mmol/L Normal 98-107 [facility] Comment on above: Performed By: #### P SAD #### [facility] [address] [address] [address] Usama Hobbs CO2 [Moles/Vol] 27.0 mmol/L Normal 21.0-32.0 [facility] Comment on above: Performed By: #### P SAD #### [facility] [address] [address] [address] Usama Hobbs Creatinine [Mass/Vol] 2.27 mg/dL Critically high 0.70-1.30 [facility] Comment on above: Performed By: #### P SAD #### [facility] [address] [place] [address] Dr. Usama Hobbs EGFR-AF BULGARIAN 35 mL/min/1.73m2 Critically low >=60 [facility] Comment on above: Performed By: #### P SAD #### [facility] [address] [address] [address] Usama Hobbs EGFR-NON AF BULGARIAN 29 mL/min/1.73m2 Critically low >=60 [facility] Comment on above: Performed By: #### P SAD #### [facility] [address] [address] [address] Usama Hobbs Globulin (S) [Mass/Vol] 3.5 g/dL Normal [facility] Comment on above: Performed By: #### P SAD #### [facility] [address] [address] [address] Usama Hobbs Glucose [Mass/Vol] 88 mg/dL Normal 74-106 [facility] Comment on above: Performed By: #### P SAD #### [facility] [address] [address] [address] Usama Hobbs Potassium [Moles/Vol] 3.8 mmol/L Normal 3.5-5.1 [facility] Comment on above: Performed By: #### P SAD #### [facility] [address] [address] [address] Usama Hobbs Protein [Mass/Vol] 6.8 g/dL Normal 6.1-8.2 [facility] Comment on above: Performed By: #### P SAD #### [facility] [address] [address] [address] Usama Hobbs Sodium [Moles/Vol] 135 mmol/L Critically low 136-145 [facility] Comment on above: Performed By: #### P SAD #### [facility] [address] [address] [address] Usama Hobbs Urea nitrogen [Mass/Vol] 26.0 mg/dL Critically high 7.0-18.0 [facility] Comment on above: Performed By: #### P SAD #### [facility] [address] [address] [address] Usama Hobbs Urea nitrogen/Creatinine [Mass ratio] 11.5 mg/mg Normal [facility] Comment on above: Performed By: #### P SAD #### [facility] [address] [address] [address] Usama Hobbs PROTIMEon 11-16-2021 INR Coag (PPP) [Relative time] 0.99 {INR} Normal [facility] Comment on above: Performed By: #### B SALESFORCE TRAINER, CMP #### [facility] [address] [address] [address] Usama Hobbs INR GUIDELINES SEE BELOW Normal [facility] Comment on above: Result Comment: LUCY RED INR: 2.0 - 3.0 CONDITIONS NOT LISTED BELOW 2.5 - 3.5 FOR PROSTHETIC HEART VALVE REPLACEMENT 2.5 - 3.5 RECURRENT THROMBOSIS Performed By: #### B SALESFORCE TRAINER, CMP #### [facility] [address] [place] [address] Dr. Usama Hobbs PT Coag (PPP) [Time] 10.7 s Normal 9.0-11.6 [facility] Comment on above: Performed By: #### B SALESFORCE TRAINER, CMP #### [facility] [address] [place] [address] Dr. Usama Hobbs PTTon 11-16-2021 aPTT Coag (Bld) [Time] 28.2 s Normal 22.3-36.2 [facility] Comment on above: Performed By: #### B SALESFORCE TRAINER, CMP #### [facility] [address] [place] [address] Dr. Usama Hobbs T4on 11-16-2021 T4 [Mass/Vol] 6.30 ug/dL Normal 4.50-12.10 [facility] Comment on above: Performed By: #### P SAD #### [facility] [address] [place] [address] Dr. Usama Hobbs TROPONIN, HIGH SENSITIVITYon 11-16-2021 HSTROP 24.0 pg/mL Normal 4.0-76.1 [facility] Comment on above: Result Comment: CUT- OFF POINTS HAVE BEEN ESTABLISHED BASED ON THE FOURTH UNIVERSAL DEFINITIONS OF MYOCARDIAL INFARCTION. THE UPPER REFERENCE LIMIT (URL) OF TROPONIN, DEFINED THE 99TH PERCENTILE OF cTnI DISTRIBUTION IN A REFERENCE POPULATION, HAS BEEN CONFIRMED THE DECISION THRESHOLD FOR SD DIAGNOSIS. Performed By: #### B SALESFORCE TRAINER, CMP #### [facility] [address] [place] [address] Dr. Usama Hobbs TSHon 11-16-2021 TSH 2.466 uIU/mL Normal 0.470-4.680 [facility] Comment on above: Performed By: #### P SAD #### [facility] [address] [place] [address] Dr. Usama Hobbs TSH RANGE SEE BELOW Normal [facility] Comment on above: Result Comment: <0.3 4 UIU/ml HYPERTHYROID 0.34-5.60 UIU/ml EUTHYROID >5.60 UIU/ml HYPOTHYROID Performed By: #### P SAD #### [facility] [address] [address] [address] Usama Hobbs XR CHEST 1 Von [...] LEA ANTUNEZ Date: 2021-11-16 19:24 Normal [facility] CBC W Auto Differential pane l (Bld)on 11-05-2021 Abs Immature Gran <0.03 <0.10 k/uL [facility] Basophils (Bld) [#/Vol] 0.05 10*3/uL <0.11 k/uL [facility] Basophils/100 WBC (Bld) 1.0 % [facility] Differential cell count method Nom (Bld) Auto [facility] Eosinophils (Bld) [#/Vol] 0.39 10*3/uL <0.46 k/uL [facility] Eosinophils/100 WBC (Bld) 7.4 % [facility] Erythrocyte distribution width (RBC) [Ratio] 13.2 % 11.5 - 15.0 % [facility] Hematocrit (Bld) [Volume fraction] 39.1 % 39.0 - 51.0 % [facility] Hemoglobin (Bld) [Mass/Vol] 12.9 g/dL Low 13.0 - 17.0 g/dL [facility] Immature Gran % 0.2 % [facility] Lymphocytes (Bld) [#/Vol] 1.07 10*3/uL 1.00 - 4.00 k/uL [facility] Lymphocytes/100 WBC (Bld) 20.4 % [facility] MCH (RBC) [Entitic mass] 30.6 pg 26.0 - 34.0 pg [facility] MCHC (RBC) [Mass/Vol] 33.0 g/dL 30.5 - 36.0 g/dL [facility] MCV (RBC) [Entitic vol] 92.9 fL 80.0 - 100.0 fL [facility] Monocytes (Bld) [#/Vol] 0.57 10*3/uL <0.87 k/uL [facility] Monocytes/100 WBC (Bld) 10.9 % [facility] Neutrophils (Bld) [#/Vol] 3.15 10*3/uL 1.45 - 7.50 k/uL [facility] Neutrophils/100 WBC (Bld) 60.1 % [facility] Nucleated RBC (Bld) [#/Vol] 10*3/uL <0.01 k/uL [facility] Nucleated RBC/100 WBC (Bld) [Ratio] 0.0 /100 WBC [facility] Platelet mean volume (Bld) [Entitic vol] 9.9 fL 9.0 - 12.7 fL [facility] Platelets (Bld) [#/Vol] 305 10*3/uL 150 - 400 k/uL [facility] RBC (Bld) [#/Vol] 4.21 10*6/uL 4.20 - 6.00 m/uL [facility] WBC (Bld) [#/Vol] 5.24 10*3/uL 3.70 - 11.00 k/u L [facility] Comprehensive metabolic 2000 panelon 11-05-2021 Albumin [Mass/Vol] 4.3 g/dL 3.9 - 4.9 g/dL [facility] ALP [Catalytic activity/Vol] 73 U/L 38 - 113 U/L [facility] ALT [Catalytic activity/Vol] 16 U/L 10 - 54 U/L [facility] Anion gap [Moles/Vol] 12 mmol/L 9 - 18 mmol/L [facility] AST [Catalytic activity/Vol] 17 U/L 14 - 40 U/L [facility] Bilirubin [Mass/Vol] 0.5 mg/dL 0.2 - 1.3 mg/dL [facility] Calcium [Mass/Vol] 10.1 mg/dL 8.5 - 10.2 mg/dL [facility] Chloride [Moles/Vol] 105 mmol/L 97 - 105 mmol/L [facility] CO2 [Moles/Vol] 25 mmol/L 22 - 30 mmol/L [facility] Creatinine [Mass/Vol] 0.89 mg/dL 0.73 - 1.22 mg/dL [facility] Estimated Glomerular Filtration Rate 96 mL/min/1.73m >=60 mL/min/1.73m [facility] Glucose [Mass/Vol] 154 mg/dL High 74 - 99 mg/dL [facility] Potassium [Moles/Vol] 4.2 mmol/L 3.7 - 5.1 mmol/L [facility] Protein [Mass/Vol] 7.1 g/dL 6.3 - 8.0 g/dL [facility] Sodium [Moles/Vol] 142 mmol/L 136 - 144 mmol/L [facility] Urea nitrogen [Mass/Vol] 9 mg/dL 9 - 24 mg/dL [facility] MRI BRAIN WO/W IVCONon 10-31 [facility] XR CHEST 2V FRONTAL/LATon [facility] NM PET/CT WHOLE BODY INITIAL on 05-28-2021 [facility] Cardiovascular Lab Reporton 02-24-2019 Cardiovascular Lab Report [facility] Patient Name: Riccardo , [facility] MR #: [id number] Department of Physician: [facility] Alma Chaney M.D. Division of Service Date: 02/23/2019 Cardiology Birthdate: 1955 Adult Cardiovascular Room #: 3CD [id number] [place] [address] Cardiovascular Laboratory Report INDICATION: The patient is [...] signed informed consent. He was brought to semiconductor lab technician in a fasting state. The right groin area was prepped and draped in usual fashion. Using micropuncture technique, the right common femoral artery was accessed. The inner cannula was advanced and limited right femoral angiography was performed followed by upsizing to a 6-Senegalese x 5 cm sheath. Right lower extremity angiography was performed down to the level of the foot. An angled Glidewire was advanced into the abdominal aorta and a 5-Senegalese Uni-Flush catheter was advanced. Aortoiliac angiography was performed using digital subtraction angiography and power injection of contrast. Using the angled Glidewire, the aortoiliac bifurcation was crossed and the catheter was exchanged to a 5-Senegalese straight tapered diagnostic catheter, which was used to perform left lower extremity angiography down to the level of the foot. Pullback across the left iliac artery system was performed with measurement of pressure. Left iliac angiography was performed for both external, internal, and common iliac arteries. The catheter was retracted. Right common and external iliac artery angiography was performed using angulated views. A [employer] Torque wire was advanced into the distal [...] The access sheath was exchanged to a 6-Senegalese x 11 cm sheath. The patient was [...] his peripheral vascular disease. Electronically Signed by: Jonathan Chaney M.D. 03/19/2019 01:46 A Jonathan Chaney M.D. Date Dict: 02/23/2019/03:45 P/Jonathan Chaney M.D. Date Trans: 02/24/2019 05:47 A/boris [id number] cc: Christina Azul M.D. [address] [place] [id number] Normal [facility] Vital Signs Date Time Vital Sign Value Performing Clinician Facility 03-20-2024 15:21-0400 Body temperature 97.8 [degF] [facility] 03-20-2024 15:21-0400 Diastolic blood pressure 82 mm[Hg] [facility] 03-20-2024 15:21-0400 Heart rate 68 /min [facility] 03-20-2024 15:21-0400 Respiratory rate 16 /min [facility] 03-20-2024 15:21-0400 SaO2% (BldA) [Mass fraction] 98 % [facility] 03-20-2024 15:21-0400 Systolic blood pressure 171 mm[Hg] [facility] 03-20-2024 06:00-0400 Body weight 50.2 kg [facility] 03-20-2024 00:00-0400 Inhaled oxygen flow rate 2 L/min [facility] 03-19-2024 11:15-0400 Heart rate 80 /min [facility] 03-19-2024 11:00-0400 Diastolic blood pressure 84 mm[Hg] [facility] 03-19-2024 11:00-0400 Respiratory rate 16 /min [facility] 03-19-2024 11:00-0400 SaO2% (BldA) [Mass fraction] 95 % [facility] 03-19-2024 11:00-0400 Systolic blood pressure 178 mm[Hg] [facility] 03-19-2024 09:14-0400 Body height 170.18 cm [facility] 03-19-2024 09:14-0400 Body temperature 97.9 [degF] [facility] 03-19-2024 09:14-0400 Body weight 52.25 kg [facility] 03-18-2024 18:52-0400 Diastolic blood pressure 90 mm[Hg] [facility] 03-18-2024 18:52-0400 Systolic blood pressure 190 mm[Hg] [facility] 03-18-2024 18:45-0400 Body height 170.18 cm [facility] 03-18-2024 18:45-0400 Body temperature 98.4 [degF] [facility] 03-18-2024 18:45-0400 Body weight 52.8 kg [facility] 03-18-2024 18:45-0400 Heart rate 67 /min [facility] 03-18-2024 18:45-0400 Respiratory rate 21 /min [facility] 03-18-2024 18:45-0400 SaO2% (BldA) [Mass fraction] 100 % [facility] 03-18-2024 13:27-0400 SaO2% (BldA) [Mass fraction] 84 % Nina Grigsby MD Work Phone: [facility] 03-18-2024 13:21-0400 Body height 168.3 cm Nina Grigsby MD Work Phone: [facility] 03-18-2024 13:21-0400 Body mass index (BMI) [Ratio] 18.15 kg/m2 Nina Grigsby MD Work Phone: [facility] 03-18-2024 13:21-0400 Body temperature 97.5 [degF] Nina Grigsby MD Work Phone: [facility] 03-18-2024 13:21-0400 Body weight 51.4 kg Nina Grigsby MD Work Phone: [facility] 03-18-2024 13:21-0400 Diastolic blood pressure 78 mm[Hg] Nina Grigsby MD Work Phone: [facility] 03-18-2024 13:21-0400 Heart rate 86 /min Nina Grigsby MD Work Phone: [facility] 03-18-2024 13:21-0400 Respiratory rate 16 /min Nina Grigsby MD Work Phone: [facility] 03-18-2024 13:21-0400 Systolic blood pressure 159 mm[Hg] Nina Grigsby MD Work Phone: [facility] 03-15-2024 13:06-0400 Body mass index (BMI) [Ratio] 17.62 kg/m2 Merary Lucas MD Work Phone: [facility] 03-15-2024 13:06-0400 Body weight 49.9 kg eMrary Lucas MD Work Phone: [facility] 03-15-2024 13:06-0400 Diastolic blood pressure 62 mm[Hg] Merary Lucas MD Work Phone: [facility] 03-15-2024 13:06-0400 Heart rate 65 /min Merary Lucas MD Work Phone: [facility] 03-15-2024 13:06-0400 SaO2% (BldA) [Mass fraction] 100 % Merary Lucas MD Work Phone: [facility] Comment on above: ra 03-15-2024 13:06-0400 Systolic blood pressure 127 mm[Hg] Merary Lucas MD Work Phone: [facility] 02-07-2024 19:28-0400 Diastolic blood pressure 75 mm[Hg] [facility] 02-07-2024 19:28-0400 Heart rate 76 /min [facility] 02-07-2024 19:28-0400 Respiratory rate 18 /min [facility] 02-07-2024 19:28-0400 SaO2% (BldA) [Mass fraction] 97 % [facility] 02-07-2024 19:28-0400 Systolic blood pressure 159 mm[Hg] [facility] 02-07-2024 15:51-0400 Body height 170.18 cm [facility] 02-07-2024 15:51-0400 Body temperature 98 [degF] [facility] 02-07-2024 15:51-0400 Body weight 52.3 kg [facility] 02-03-2024 11:32-0400 Body height 168.3 cm Yusef Jessica PA-C Work Phone: [facility] 02-03-2024 11:32-0400 Body mass index (BMI) [Ratio] 18.43 kg/m2 Yusef Jessica PA-C Work Phone: [facility] 02-03-2024 11:32-0400 Body temperature 97.3 [degF] Yusef Jessica PA-C Work Phone: [facility] 02-03-2024 11:32-0400 Body weight 52.2 kg Yusef Jessica PA-C Work Phone: [facility] 02-03-2024 11:32-0400 Diastolic blood pressure 74 mm[Hg] Yusef Jessica PA-C Work Phone: [facility] 02-03-2024 11:32-0400 Heart rate 92 /min Yusef Jessica PA-C Work Phone: [facility] 02-03-2024 11:32-0400 Respiratory rate 18 /min Yusef Jessica PA-C Work Phone: [facility] 02-03-2024 11:32-0400 SaO2% (BldA) [Mass fraction] 99 % Yusef Almaguerer PA-C Work Phone: [facility] 02-03-2024 11:32-0400 Systolic blood pressure 122 mm[Hg] Yusef Almaguerer PA-C Work Phone: [facility] 12-23-2023 14:53-0400 Body height 168.3 cm Nina Grigsby MD Work Phone: [facility] 12-23-2023 14:53-0400 Body mass index (BMI) [Ratio] 19.49 kg/m2 Nina Grigsby MD Work Phone: [facility] 12-23-2023 14:53-0400 Body temperature 97.39 [degF] Nina Grigsby MD Work Phone: [facility] 12-23-2023 14:53-0400 Body weight 55.2 kg Nina Grigsby MD Work Phone: [facility] 12-23-2023 14:53-0400 Diastolic blood pressure 74 mm[Hg] Nina Grigsby MD Work Phone: [facility] 12-23-2023 14:53-0400 Heart rate 71 /min Nina Grigsby MD Work Phone: [facility] 12-23-2023 14:53-0400 Respiratory rate 16 /min Nina Grigsby MD Work Phone: [facility] 12-23-2023 14:53-0400 SaO2% (BldA) [Mass fraction] 99 % Nina Grigsby MD Work Phone: [facility] 12-23-2023 14:53-0400 Systolic blood pressure 137 mm[Hg] Nina Grigsby MD Work Phone: [facility] 12-22-2023 12:38-0400 Body mass index (BMI) [Ratio] 18.29 kg/m2 JC Limon MD Work Phone: [facility] 12-22-2023 12:38-0400 Body temperature 97.59 [degF] JC Limon MD Work Phone: [facility] 12-22-2023 12:38-0400 Body weight 51.8 kg JC Limon MD Work Phone: [facility] 12-22-2023 12:38-0400 Diastolic blood pressure 83 mm[Hg] JC Limon MD Work Phone: [facility] 12-22-2023 12:38-0400 Heart rate 116 /min JC Limon MD Work Phone: [facility] 12-22-2023 12:38-0400 Respiratory rate 18 /min JC Limon MD Work Phone: [facility] 12-22-2023 12:38-0400 SaO2% (BldA) [Mass fraction] 99 % JC Limon MD Work Phone: [facility] 12-22-2023 12:38-0400 Systolic blood pressure 124 mm[Hg] JC Limon MD Work Phone: [facility] 12-16-2023 15:45-0400 Body mass index (BMI) [Ratio] 19.14 kg/m2 JC Limon MD Work Phone: [facility] 12-16-2023 15:45-0400 Body temperature 97.3 [degF] JC Limon MD Work Phone: [facility] 12-16-2023 15:45-0400 Body weight 54.2 kg JC Limon MD Work Phone: [facility] 12-16-2023 15:45-0400 Diastolic blood pressure 86 mm[Hg] JC Limon MD Work Phone: [facility] 12-16-2023 15:45-0400 Heart rate 66 /min JC Limon MD Work Phone: [facility] 12-16-2023 15:45-0400 Respiratory rate 16 /min JC Limon MD Work Phone: [facility] 12-16-2023 15:45-0400 SaO2% (BldA) [Mass fraction] 100 % JC Limon MD Work Phone: [facility] 12-16-2023 15:45-0400 Systolic blood pressure 161 mm[Hg] JC Limon MD Work Phone: [facility] 12-10-2023 14:40-0400 Body mass index (BMI) [Ratio] 19.21 kg/m2 JC Limon MD Work Phone: [facility] 12-10-2023 14:40-0400 Body temperature 96.69 [degF] JC Limon MD Work Phone: [facility] 12-10-2023 14:40-0400 Body weight 54.4 kg JC Limon MD Work Phone: [facility] 12-10-2023 14:40-0400 Diastolic blood pressure 68 mm[Hg] JC Limon MD Work Phone: [facility] 12-10-2023 14:40-0400 Heart rate 68 /min JC Limon MD Work Phone: [facility] 12-10-2023 14:40-0400 Respiratory rate 16 /min JC Limon MD Work Phone: [facility] 12-10-2023 14:40-0400 SaO2% (BldA) [Mass fraction] 97 % JC Limon MD Work Phone: [facility] 12-10-2023 14:40-0400 Systolic blood pressure 125 mm[Hg] JC Limon MD Work Phone: [facility] 12-02-2023 10:20-0400 Body height 168.3 cm Nina Grigsby MD Work Phone: [facility] 12-02-2023 10:20-0400 Body mass index (BMI) [Ratio] 18.71 kg/m2 Nina Grigsby MD Work Phone: [facility] 12-02-2023 10:20-0400 Body temperature 96.69 [degF] Nina Grigsby MD Work Phone: [facility] 12-02-2023 10:20-0400 Body weight 53 kg Nina Grigsby MD Work Phone: [facility] 12-02-2023 10:20-0400 Diastolic blood pressure 83 mm[Hg] Nina Grigsby MD Work Phone: [facility] 12-02-2023 10:20-0400 Heart rate 55 /min Nina Grigsby MD Work Phone: [facility] 12-02-2023 10:20-0400 Respiratory rate 16 /min Nina Grigsby MD Work Phone: [facility] 12-02-2023 10:20-0400 SaO2% (BldA) [Mass fraction] 93 % Nina Grigsby MD Work Phone: [facility] 12-02-2023 10:20-0400 Systolic blood pressure 133 mm[Hg] Nina Grigsby MD Work Phone: [facility] 11-21-2023 10:05-0400 Body height 168.3 cm Estella Bundridge PLANOGRAPH OPERATOR.SOLAR PANEL TECHNICIAN Work Phone: [facility] 11-21-2023 10:05-0400 Body mass index (BMI) [Ratio] 19.74 kg/m2 Estella Bundridge PLANOGRAPH OPERATOR.SOLAR PANEL TECHNICIAN Work Phone: [facility] 11-21-2023 10:05-0400 Body temperature 97.7 [degF] Estella Bundridge PLANOGRAPH OPERATOR.SOLAR PANEL TECHNICIAN Work Phone: [facility] 11-21-2023 10:05-0400 Body weight 55.9 kg Estella Bundridge PLANOGRAPH OPERATOR.SOLAR PANEL TECHNICIAN Work Phone: [facility] 11-21-2023 10:05-0400 Diastolic blood pressure 91 mm[Hg] Estella Bundridge PLANOGRAPH OPERATOR.SOLAR PANEL TECHNICIAN Work Phone: [facility] 11-21-2023 10:05-0400 Heart rate 95 /min Estella Bundridge PLANOGRAPH OPERATOR.SOLAR PANEL TECHNICIAN Work Phone: [facility] 11-21-2023 10:05-0400 Respiratory rate 16 /min Estella Bundridge PLANOGRAPH OPERATOR.SOLAR PANEL TECHNICIAN Work Phone: [facility] 11-21-2023 10:05-0400 SaO2% (BldA) [Mass fraction] 98 % Estella Bundridge PLANOGRAPH OPERATOR.SOLAR PANEL TECHNICIAN Work Phone: [facility] 11-21-2023 10:05-0400 Systolic blood pressure 154 mm[Hg] Estella Bundridge PLANOGRAPH OPERATOR.SOLAR PANEL TECHNICIAN Work Phone: [facility] 11-04-2023 09:43-0400 Body height 168.3 cm Nina Grigsby MD Work Phone: [facility] 11-04-2023 09:43-0400 Body temperature 97 [degF] Nina Grigsby MD Work Phone: [facility] 11-04-2023 09:43-0400 Body weight 56.3 kg Nina Grigsby MD Work Phone: [facility] 11-04-2023 09:43-0400 Diastolic blood pressure 84 mm[Hg] Nina Grigsby MD Work Phone: [facility] 11-04-2023 09:43-0400 Heart rate 101 /min Nina Grigsby MD Work Phone: [facility] 11-04-2023 09:43-0400 Respiratory rate 16 /min Nina Grigsby MD Work Phone: [facility] 11-04-2023 09:43-0400 SaO2% (BldA) [Mass fraction] 96 % Nina Grigsby MD Work Phone: [facility] 11-04-2023 09:43-0400 Systolic blood pressure 147 mm[Hg] Nina Grigsby MD Work Phone: [facility] 10-20-2023 10:06-0400 Body height 168.3 cm Nina Grigsby MD Work Phone: [facility] 10-20-2023 10:06-0400 Body temperature 97.3 [degF] Nina Grigsby MD Work Phone: [facility] 10-20-2023 10:06-0400 Body weight 57.5 kg Nina Grigsby MD Work Phone: [facility] 10-20-2023 10:06-0400 Diastolic blood pressure 72 mm[Hg] Nina Grigsby MD Work Phone: [facility] 10-20-2023 10:06-0400 Heart rate 82 /min Nina Grigsby MD Work Phone: [facility] 10-20-2023 10:06-0400 Respiratory rate 18 /min Nina Grigsby MD Work Phone: [facility] 10-20-2023 10:06-0400 SaO2% (BldA) [Mass fraction] 98 % Nina Grigsby MD Work Phone: [facility] 10-20-2023 10:06-0400 Systolic blood pressure 155 mm[Hg] Nina Grigsby MD Work Phone: [facility] 09-22-2023 09:56-0500 Body height 168.3 cm Nina Grigsby MD Work Phone: [facility] 09-22-2023 09:56-0500 Body temperature 97.11 [degF] Nina Grigsby MD Work Phone: [facility] 09-22-2023 09:56-0500 Body weight 60.2 kg Nina Grigsby MD Work Phone: [facility] 09-22-2023 09:56-0500 Diastolic blood pressure 78 mm[Hg] Nina Grigsby MD Work Phone: [facility] 09-22-2023 09:56-0500 Heart rate 91 /min Nina Grigsby MD Work Phone: [facility] 09-22-2023 09:56-0500 Respiratory rate 18 /min Nina Grigsby MD Work Phone: [facility] 09-22-2023 09:56-0500 SaO2% (BldA) [Mass fraction] 99 % Nina Grigsby MD Work Phone: [facility] 09-22-2023 09:56-0500 Systolic blood pressure 142 mm[Hg] Nina Grigsby MD Work Phone: [facility] 08-25-2023 14:55-0500 Body height 168.3 cm Nina Grigsby MD Work Phone: [facility] 08-25-2023 14:55-0500 Body temperature 97.59 [degF] Nina Grigsby MD Work Phone: [facility] 08-25-2023 14:55-0500 Body weight 61.2 kg Nina Grigsby MD Work Phone: [facility] 08-25-2023 14:55-0500 Diastolic blood pressure 70 mm[Hg] Nina Grigsby MD Work Phone: [facility] 08-25-2023 14:55-0500 Heart rate 67 /min Nina Grigsby MD Work Phone: [facility] 08-25-2023 14:55-0500 Respiratory rate 18 /min Nina Grigsby MD Work Phone: [facility] 08-25-2023 14:55-0500 Systolic blood pressure 136 mm[Hg] Nina Grigsby MD Work Phone: [facility] 06-30-2023 15:09-0500 Body height 168.3 cm Nina Grigsby MD Work Phone: [facility] 06-30-2023 15:09-0500 Body temperature 97.11 [degF] Nina Grigsby MD Work Phone: [facility] 06-30-2023 15:09-0500 Body weight 63.05 kg Nina Grigsby MD Work Phone: [facility] 06-30-2023 15:09-0500 Diastolic blood pressure 66 mm[Hg] Nina Grigsby MD Work Phone: [facility] 06-30-2023 15:09-0500 Heart rate 84 /min Nina Grigsby MD Work Phone: [facility] 06-30-2023 15:09-0500 Respiratory rate 16 /min Nina Grigsby MD Work Phone: [facility] 06-30-2023 15:09-0500 Systolic blood pressure 119 mm[Hg] Nina Grigsby MD Work Phone: [facility] 06-13-2023 09:34-0500 Body temperature 97 [degF] Estella Bundridge PLANOGRAPH OPERATOR.SOLAR PANEL TECHNICIAN Work Phone: [facility] 06-13-2023 09:34-0500 Body weight 63.41 kg Estella Bundridge PLANOGRAPH OPERATOR.SOLAR PANEL TECHNICIAN Work Phone: [facility] 06-13-2023 09:34-0500 Diastolic blood pressure 78 mm[Hg] Estella Bundridge PLANOGRAPH OPERATOR.SOLAR PANEL TECHNICIAN Work Phone: [facility] 06-13-2023 09:34-0500 Heart rate 84 /min Estella Bundridge PLANOGRAPH OPERATOR.SOLAR PANEL TECHNICIAN Work Phone: [facility] 06-13-2023 09:34-0500 Respiratory rate 18 /min Estella Bundridge PLANOGRAPH OPERATOR.SOLAR PANEL TECHNICIAN Work Phone: [facility] 06-13-2023 09:34-0500 SaO2% (BldA) [Mass fraction] 98 % Estella Bundridge PLANOGRAPH OPERATOR.SOLAR PANEL TECHNICIAN Work Phone: [facility] 06-13-2023 09:34-0500 Systolic blood pressure 139 mm[Hg] Estella Bundridge PLANOGRAPH OPERATOR.SOLAR PANEL TECHNICIAN Work Phone: [facility] 06-02-2023 14:34-0500 Body height 168.3 cm Patricia Miller PLANOGRAPH OPERATOR.SOLAR PANEL TECHNICIAN Work Phone: [facility] 06-02-2023 14:34-0500 Body temperature 97.59 [degF] Patricia Miller PLANOGRAPH OPERATOR.SOLAR PANEL TECHNICIAN Work Phone: [facility] 06-02-2023 14:34-0500 Body weight 63.78 kg Patricia Miller PLANOGRAPH OPERATOR.SOLAR PANEL TECHNICIAN Work Phone: [facility] 06-02-2023 14:34-0500 Diastolic blood pressure 101 mm[Hg] Patricia Miller PLANOGRAPH OPERATOR.SOLAR PANEL TECHNICIAN Work Phone: [facility] 06-02-2023 14:34-0500 Heart rate 98 /min Patricia Miller PLANOGRAPH OPERATOR.SOLAR PANEL TECHNICIAN Work Phone: [facility] 06-02-2023 14:34-0500 Respiratory rate 16 /min Patricia Miller PLANOGRAPH OPERATOR.SOLAR PANEL TECHNICIAN Work Phone: [facility] 06-02-2023 14:34-0500 SaO2% (BldA) [Mass fraction] 97 % Patricia Miller PLANOGRAPH OPERATOR.SOLAR PANEL TECHNICIAN Work Phone: [facility] 06-02-2023 14:34-0500 Systolic blood pressure 160 mm[Hg] Patricia Miller PLANOGRAPH OPERATOR.SOLAR PANEL TECHNICIAN Work Phone: [facility] 05-30-2023 11:11-0500 Body temperature 97.3 [degF] JC Limon MD Work Phone: [facility] 05-30-2023 11:11-0500 Body weight 64.32 kg JC Limon MD Work Phone: [facility] 05-30-2023 11:11-0500 Diastolic blood pressure 114 mm[Hg] JC Limon MD Work Phone: [facility] 05-30-2023 11:11-0500 Heart rate 70 /min JC Limon MD Work Phone: [facility] 05-30-2023 11:11-0500 Respiratory rate 16 /min JC Limon MD Work Phone: [facility] 05-30-2023 11:11-0500 SaO2% (BldA) [Mass fraction] 100 % JC Limon MD Work Phone: [facility] [facility] 05-30-2023 11:11-0500 Systolic blood pressure 172 mm[Hg] JC Limon MD Work Phone: [facility] 05-16-2023 08:51-0400 Body height 168.3 cm Estella Bundridge PLANOGRAPH OPERATOR.SOLAR PANEL TECHNICIAN Work Phone: [facility] 05-16-2023 08:51-0400 Body temperature 97 [degF] Estella Bundridge PLANOGRAPH OPERATOR.SOLAR PANEL TECHNICIAN Work Phone: [facility] 05-16-2023 08:51-0400 Body weight 63.14 kg Estella Bundridge PLANOGRAPH OPERATOR.SOLAR PANEL TECHNICIAN Work Phone: [facility] 05-16-2023 08:51-0400 Diastolic blood pressure 85 mm[Hg] Estella Bundridge PLANOGRAPH OPERATOR.SOLAR PANEL TECHNICIAN Work Phone: [facility] 05-16-2023 08:51-0400 Heart rate 85 /min Estella Bundridge PLANOGRAPH OPERATOR.SOLAR PANEL TECHNICIAN Work Phone: [facility] 05-16-2023 08:51-0400 Respiratory rate 16 /min Estella Bundridge PLANOGRAPH OPERATOR.SOLAR PANEL TECHNICIAN Work Phone: [facility] 05-16-2023 08:51-0400 SaO2% (BldA) [Mass fraction] 98 % Estella Bundridge PLANOGRAPH OPERATOR.SOLAR PANEL TECHNICIAN Work Phone: [facility] 05-16-2023 08:51-0400 Systolic blood pressure 150 mm[Hg] Estella Bundridge PLANOGRAPH OPERATOR.SOLAR PANEL TECHNICIAN Work Phone: [facility] 04-01-2023 12:53-0400 Diastolic blood pressure 101 mm[Hg] Patricia Miller PLANOGRAPH OPERATOR.SOLAR PANEL TECHNICIAN Work Phone: [facility] 04-01-2023 12:53-0400 Heart rate 105 /min Patricia Miller PLANOGRAPH OPERATOR.SOLAR PANEL TECHNICIAN Work Phone: [facility] 04-01-2023 12:53-0400 Systolic blood pressure 191 mm[Hg] Patricia Miller PLANOGRAPH OPERATOR.SOLAR PANEL TECHNICIAN Work Phone: [facility] 04-01-2023 12:50-0400 Body height 168.3 cm Patricia Miller PLANOGRAPH OPERATOR.SOLAR PANEL TECHNICIAN Work Phone: [facility] 04-01-2023 12:50-0400 Body temperature 97.81 [degF] Patricia Miller PLANOGRAPH OPERATOR.SOLAR PANEL TECHNICIAN Work Phone: [facility] 04-01-2023 12:50-0400 Body weight 62.96 kg Patricia Miller PLANOGRAPH OPERATOR.SOLAR PANEL TECHNICIAN Work Phone: [facility] 04-01-2023 12:50-0400 Respiratory rate 18 /min Patricia Miller PLANOGRAPH OPERATOR.SOLAR PANEL TECHNICIAN Work Phone: [facility] 04-01-2023 12:50-0400 SaO2% (BldA) [Mass fraction] 98 % Patricia Miller PLANOGRAPH OPERATOR.SOLAR PANEL TECHNICIAN Work Phone: [facility] 03-11-2023 13:40-0400 Body height 168.3 cm Nina Grigsby MD Work Phone: [facility] 03-11-2023 13:40-0400 Body temperature 97.59 [degF] Nina Grigsby MD Work Phone: [facility] 03-11-2023 13:40-0400 Body weight 62.14 kg Nina Grigsby MD Work Phone: [facility] 03-11-2023 13:40-0400 Diastolic blood pressure 74 mm[Hg] Nina Grigsby MD Work Phone: [facility] 03-11-2023 13:40-0400 Heart rate 75 /min Nina Grigsby MD Work Phone: [facility] 03-11-2023 13:40-0400 Respiratory rate 16 /min Nina Grigsby MD Work Phone: [facility] 03-11-2023 13:40-0400 SaO2% (BldA) [Mass fraction] 99 % Nina Grigsby MD Work Phone: [facility] 03-11-2023 13:40-0400 Systolic blood pressure 158 mm[Hg] Nina Grigsby MD Work Phone: [facility] 02-18-2023 16:06-0400 Diastolic blood pressure 97 mm[Hg] Chair Jose Work Phone: [facility] 02-18-2023 16:06-0400 Systolic blood pressure 183 mm[Hg] Chair Jose Work Phone: [facility] 02-18-2023 14:38-0400 Body height 168.3 cm Nina Grigsby MD Work Phone: [facility] 02-18-2023 14:38-0400 Body temperature 97.9 [degF] Nina Grigsby MD Work Phone: [facility] 02-18-2023 14:38-0400 Body weight 60.24 kg Nina Grigsby MD Work Phone: [facility] 02-18-2023 14:38-0400 Diastolic blood pressure 103 mm[Hg] Nina Grigsby MD Work Phone: [facility] 02-18-2023 14:38-0400 Heart rate 134 /min Nina Grigsby MD Work Phone: [facility] 02-18-2023 14:38-0400 Respiratory rate 16 /min Nina Grigsby MD Work Phone: [facility] 02-18-2023 14:38-0400 SaO2% (BldA) [Mass fraction] 98 % Nina Grigsby MD Work Phone: [facility] 02-18-2023 14:38-0400 Systolic blood pressure 161 mm[Hg] Nina Grigsby MD Work Phone: [facility] 01-03-2023 21:46-0400 Diastolic blood pressure 101 mm[Hg] MD Christina Azul Work Phone: [facility] 01-03-2023 21:46-0400 Heart rate 71 /min MD Christina Azul Work Phone: [facility] 01-03-2023 21:46-0400 Respiratory rate 18 /min MD Christina Azul Work Phone: [facility] 01-03-2023 21:46-0400 SaO2% (BldA) [Mass fraction] 98 % MD Christina zAul Work Phone: [facility] 01-03-2023 21:46-0400 Systolic blood pressure 173 mm[Hg] MD Christina Azul Work Phone: [facility] 01-03-2023 17:10-0400 Body height 170.18 cm MD Christina Azul Work Phone: [facility] 01-03-2023 17:10-0400 Body temperature 98.6 [degF] MD Christina Azul Work Phone: [facility] 01-03-2023 17:10-0400 Body weight 58.75 kg MD Christina Azul Work Phone: [facility] 12-17-2022 08:47-0400 Body height 168.3 cm Nina Grigsby MD Work Phone: [facility] 12-17-2022 08:47-0400 Body temperature 98.6 [degF] Nina Grigsby MD Work Phone: [facility] 12-17-2022 08:47-0400 Body weight 59.42 kg Nina Grigsby MD Work Phone: [facility] 12-17-2022 08:47-0400 Diastolic blood pressure 70 mm[Hg] Nina Grigsby MD Work Phone: [facility] 12-17-2022 08:47-0400 Heart rate 106 /min Nina Grigsby MD Work Phone: [facility] 12-17-2022 08:47-0400 Respiratory rate 16 /min Nina Grigsby MD Work Phone: [facility] 12-17-2022 08:47-0400 SaO2% (BldA) [Mass fraction] 96 % Nina Grigsby MD Work Phone: [facility] 12-17-2022 08:47-0400 Systolic blood pressure 122 mm[Hg] Nina Grigsby MD Work Phone: [facility] 11-25-2022 09:28-0400 Body height 168.3 cm Patricia Miller PLANOGRAPH OPERATOR.SOLAR PANEL TECHNICIAN Work Phone: [facility] 11-25-2022 09:28-0400 Body temperature 97.5 [degF] Patricia Miller PLANOGRAPH OPERATOR.SOLAR PANEL TECHNICIAN Work Phone: [facility] 11-25-2022 09:28-0400 Body weight 59.15 kg Patricia Miller PLANOGRAPH OPERATOR.SOLAR PANEL TECHNICIAN Work Phone: [facility] 11-25-2022 09:28-0400 Diastolic blood pressure 69 mm[Hg] Patricia Miller PLANOGRAPH OPERATOR.SOLAR PANEL TECHNICIAN Work Phone: [facility] 11-25-2022 09:28-0400 Heart rate 97 /min Patricia Miller APRN.SOLAR PANEL TECHNICIAN Work Phone: [facility] 11-25-2022 09:28-0400 Respiratory rate 16 /min Patricia Miller APRN.SOLAR PANEL TECHNICIAN Work Phone: [facility] 11-25-2022 09:28-0400 SaO2% (BldA) [Mass fraction] 99 % Patricia Miller PLANOGRAPH OPERATOR.SOLAR PANEL TECHNICIAN Work Phone: [facility] 11-25-2022 09:28-0400 Systolic blood pressure 108 mm[Hg] Patricia Miller PLANOGRAPH OPERATOR.SOLAR PANEL TECHNICIAN Work Phone: [facility] 11-20-2022 10:33-0400 Body temperature 97.7 [degF] JC Limon MD Work Phone: [facility] 11-20-2022 10:33-0400 Body weight 59.24 kg JC Limon MD Work Phone: [facility] 11-20-2022 10:33-0400 Diastolic blood pressure 73 mm[Hg] JC Limon MD Work Phone: [facility] 11-20-2022 10:33-0400 Heart rate 87 /min JC Limon MD Work Phone: [facility] 11-20-2022 10:33-0400 Respiratory rate 18 /min JC Limon MD Work Phone: [facility] 11-20-2022 10:33-0400 SaO2% (BldA) [Mass fraction] 97 % JC Limon MD Work Phone: [facility] 11-20-2022 10:33-0400 Systolic blood pressure 137 mm[Hg] JC Limon MD Work Phone: [facility] 11-18-2022 13:30-0400 Body height 168.3 cm Nina Grigsby MD Work Phone: [facility] 11-18-2022 13:30-0400 Body temperature 97.2 [degF] Nina Grigsby MD Work Phone: [facility] 11-18-2022 13:30-0400 Body weight 60.33 kg Nina Grigsby MD Work Phone: [facility] 11-18-2022 13:30-0400 Diastolic blood pressure 70 mm[Hg] Nina Grigsby MD Work Phone: [facility] 11-18-2022 13:30-0400 Heart rate 84 /min Nina Grigsby MD Work Phone: [facility] 11-18-2022 13:30-0400 Respiratory rate 16 /min Nina Grigsby MD Work Phone: [facility] 11-18-2022 13:30-0400 SaO2% (BldA) [Mass fraction] 100 % Nina Grigsby MD Work Phone: [facility] 11-18-2022 13:30-0400 Systolic blood pressure 124 mm[Hg] Nina Grigsby MD Work Phone: [facility] 11-11-2022 13:19-0400 Body height 168.3 cm Nina Grigsby MD Work Phone: [facility] 11-11-2022 13:19-0400 Body temperature 96.6 [degF] Nina Grigsby MD Work Phone: [facility] 11-11-2022 13:19-0400 Body weight 61.2 kg Nina Grigsby MD Work Phone: [facility] 11-11-2022 13:19-0400 Diastolic blood pressure 84 mm[Hg] Nina Grigsby MD Work Phone: [facility] 11-11-2022 13:19-0400 Heart rate 72 /min Nina Grigsby MD Work Phone: [facility] 11-11-2022 13:19-0400 Respiratory rate 18 /min Nina Grigsby MD Work Phone: [facility] 11-11-2022 13:19-0400 SaO2% (BldA) [Mass fraction] 96 % Nina Grigsby MD Work Phone: [facility] 11-11-2022 13:19-0400 Systolic blood pressure 162 mm[Hg] Nina Grigsby MD Work Phone: [facility] 11-04-2022 11:19-0400 Body temperature 97.7 [degF] JC Limon MD Work Phone: [facility] 11-04-2022 11:19-0400 Body weight 60.06 kg JC Limon MD Work Phone: [facility] 11-04-2022 11:19-0400 Diastolic blood pressure 84 mm[Hg] JC Limon MD Work Phone: [facility] 11-04-2022 11:19-0400 Heart rate 87 /min JC Limon MD Work Phone: [facility] 11-04-2022 11:19-0400 Respiratory rate 16 /min JC Limon MD Work Phone: [facility] 11-04-2022 11:19-0400 SaO2% (BldA) [Mass fraction] 95 % JC Limon MD Work Phone: [facility] 11-04-2022 11:19-0400 Systolic blood pressure 159 mm[Hg] JC Limon MD Work Phone: [facility] 10-31-2022 14:57-0400 Body height 168.3 cm Nina Grigsby MD Work Phone: [facility] 10-31-2022 14:57-0400 Body temperature 97.2 [degF] Nina Grigsby MD Work Phone: [facility] 10-31-2022 14:57-0400 Body weight 59.97 kg Nina Grigsby MD Work Phone: [facility] 10-31-2022 14:57-0400 Diastolic blood pressure 65 mm[Hg] Nina Grigsby MD Work Phone: [facility] 10-31-2022 14:57-0400 Heart rate 90 /min Nina Grigsby MD Work Phone: [facility] 10-31-2022 14:57-0400 Respiratory rate 16 /min Nina Grigsby MD Work Phone: [facility] 10-31-2022 14:57-0400 SaO2% (BldA) [Mass fraction] 100 % Nina Grigsby MD Work Phone: [facility] 10-31-2022 14:57-0400 Systolic blood pressure 114 mm[Hg] Nina Grigsby MD Work Phone: [facility] 10-21-2022 14:08-0400 Body height 168.3 cm Chair Mendez Work Phone: [facility] 10-21-2022 13:42-0400 Body height 169.5 cm JC Limon MD Work Phone: [facility] 10-21-2022 13:35-0400 Body height 169.7 cm Nina Grigsby MD Work Phone: [facility] 10-21-2022 13:35-0400 Body temperature 97.9 [degF] Nina Grigsby MD Work Phone: [facility] 10-21-2022 13:35-0400 Body weight 61.24 kg Nina Grigsby MD Work Phone: [facility] 10-21-2022 13:35-0400 Diastolic blood pressure 79 mm[Hg] Nina Grigsby MD Work Phone: [facility] 10-21-2022 13:35-0400 Heart rate 92 /min Nina Grigsby MD Work Phone: [facility] 10-21-2022 13:35-0400 Respiratory rate 16 /min Nina Grigsby MD Work Phone: [facility] 10-21-2022 13:35-0400 SaO2% (BldA) [Mass fraction] 97 % Nina Grigsby MD Work Phone: [facility] 10-21-2022 13:35-0400 Systolic blood pressure 129 mm[Hg] Nina Grigsby MD Work Phone: [facility] 10-15-2022 09:06-0400 Body height 167.6 cm Nina Grigsby MD Work Phone: [facility] 10-15-2022 09:06-0400 Body temperature 97 [degF] Nina Grigsby MD Work Phone: [facility] 10-15-2022 09:06-0400 Body weight 60.6 kg Nina Grigsby MD Work Phone: [facility] 10-15-2022 09:06-0400 Diastolic blood pressure 89 mm[Hg] Nina Grigsby MD Work Phone: [facility] 10-15-2022 09:06-0400 Heart rate 68 /min Nina Grigsby MD Work Phone: [facility] 10-15-2022 09:06-0400 Respiratory rate 16 /min Nina Grigsby MD Work Phone: [facility] 10-15-2022 09:06-0400 SaO2% (BldA) [Mass fraction] 94 % Nina Grigsby MD Work Phone: [facility] 10-15-2022 09:06-0400 Systolic blood pressure 158 mm[Hg] Nina Grigsby MD Work Phone: [facility] 09-23-2022 10:19-0500 Body height 167.6 cm Nina Grigsby MD Work Phone: [facility] 09-23-2022 10:19-0500 Body temperature 97.59 [degF] Nina Grigsby MD Work Phone: [facility] 09-23-2022 10:19-0500 Body weight 60.69 kg Nina Grigsby MD Work Phone: [facility] 09-23-2022 10:19-0500 Diastolic blood pressure 71 mm[Hg] Nina Grigsby MD Work Phone: [facility] 09-23-2022 10:19-0500 Heart rate 85 /min Nina Grigsby MD Work Phone: [facility] 09-23-2022 10:19-0500 Respiratory rate 16 /min Nina Grigsby MD Work Phone: [facility] 09-23-2022 10:19-0500 SaO2% (BldA) [Mass fraction] 96 % Nina Grigsby MD Work Phone: [facility] 09-23-2022 10:19-0500 Systolic blood pressure 113 mm[Hg] Nina Grigsby MD Work Phone: [facility] 08-20-2022 09:52-0500 Body height 167.6 cm Nina Grigsby MD Work Phone: [facility] 08-20-2022 09:52-0500 Body temperature 98.8 [degF] Nina Grigsby MD Work Phone: [facility] 08-20-2022 09:52-0500 Body weight 62.14 kg Nina Grigsby MD Work Phone: [facility] 08-20-2022 09:52-0500 Diastolic blood pressure 64 mm[Hg] Nina Grigsby MD Work Phone: [facility] 08-20-2022 09:52-0500 Heart rate 99 /min Nina Grigsby MD Work Phone: [facility] 08-20-2022 09:52-0500 Respiratory rate 16 /min Nina Grigsby MD Work Phone: [facility] 08-20-2022 09:52-0500 SaO2% (BldA) [Mass fraction] 96 % Nina Grigsby MD Work Phone: [facility] 08-20-2022 09:52-0500 Systolic blood pressure 122 mm[Hg] Nina Grigsby MD Work Phone: [facility] 06-25-2022 10:01-0500 Body height 167.6 cm Patricia Miller APRN.SOLAR PANEL TECHNICIAN Work Phone: [facility] 06-25-2022 10:01-0500 Body temperature 97.9 [degF] Patricia Miller APRN.SOLAR PANEL TECHNICIAN Work Phone: [facility] 06-25-2022 10:01-0500 Body weight 59.97 kg Patricia Miller APRN.SOLAR PANEL TECHNICIAN Work Phone: [facility] 06-25-2022 10:01-0500 Diastolic blood pressure 74 mm[Hg] Patricia Miller APRN.SOLAR PANEL TECHNICIAN Work Phone: [facility] 06-25-2022 10:01-0500 Heart rate 101 /min Patricia Miller APRN.SOLAR PANEL TECHNICIAN Work Phone: [facility] 06-25-2022 10:01-0500 Respiratory rate 16 /min Patricia Miller APRN.SOLAR PANEL TECHNICIAN Work Phone: [facility] 06-25-2022 10:01-0500 SaO2% (BldA) [Mass fraction] 94 % Patricia Miller APRN.SOLAR PANEL TECHNICIAN Work Phone: [facility] 06-25-2022 10:01-0500 Systolic blood pressure 139 mm[Hg] Patricia Miller APRN.SOLAR PANEL TECHNICIAN Work Phone: [facility] 04-22-2022 11:27-0400 Body temperature 96.91 [degF] JC Limon MD Work Phone: [facility] 04-22-2022 11:27-0400 Body weight 60.33 kg JC Limon MD Work Phone: [facility] 04-22-2022 11:27-0400 Diastolic blood pressure 90 mm[Hg] CJ Limon MD Work Phone: [facility] 04-22-2022 11:27-0400 Heart rate 103 /min JC Limon MD Work Phone: [facility] 04-22-2022 11:27-0400 Respiratory rate 18 /min JC Limon MD Work Phone: [facility] 04-22-2022 11:27-0400 SaO2% (BldA) [Mass fraction] 100 % JC Limon MD Work Phone: [facility] 04-22-2022 11:27-0400 Systolic blood pressure 169 mm[Hg] JC Limon MD Work Phone: [facility] 04-15-2022 09:12-0400 Body temperature 96.69 [degF] JC Limon MD Work Phone: [facility] 04-15-2022 09:12-0400 Body weight 58.97 kg JC Limon MD Work Phone: [facility] 04-15-2022 09:12-0400 Diastolic blood pressure 87 mm[Hg] JC Limon MD Work Phone: [facility] 04-15-2022 09:12-0400 Heart rate 90 /min JC Limon MD Work Phone: [facility] 04-15-2022 09:12-0400 Respiratory rate 18 /min JC Limon MD Work Phone: [facility] 04-15-2022 09:12-0400 SaO2% (BldA) [Mass fraction] 100 % JC Limon MD Work Phone: [facility] 04-15-2022 09:12-0400 Systolic blood pressure 143 mm[Hg] JC Limon MD Work Phone: [facility] 04-08-2022 09:15-0400 Body temperature 97.39 [degF] JC Limon MD Work Phone: [facility] 04-08-2022 09:15-0400 Body weight 54.88 kg JC Limon MD Work Phone: [facility] 04-08-2022 09:15-0400 Diastolic blood pressure 79 mm[Hg] JC Limon MD Work Phone: [facility] 04-08-2022 09:15-0400 Heart rate 101 /min JC Limon MD Work Phone: [facility] 04-08-2022 09:15-0400 Respiratory rate 16 /min JC Limon MD Work Phone: [facility] 04-08-2022 09:15-0400 SaO2% (BldA) [Mass fraction] 100 % JC Limon MD Work Phone: [facility] 04-08-2022 09:15-0400 Systolic blood pressure 159 mm[Hg] JC Limon MD Work Phone: [facility] 04-01-2022 09:48-0400 Body temperature 97.39 [degF] JC Limon MD Work Phone: [facility] 04-01-2022 09:48-0400 Body weight 58.97 kg JC Limon MD Work Phone: [facility] 04-01-2022 09:48-0400 Heart rate 98 /min JC Limon MD Work Phone: [facility] 04-01-2022 09:48-0400 SaO2% (BldA) [Mass fraction] 100 % JC Limon MD Work Phone: [facility] 03-26-2022 08:50-0400 Body temperature 97.5 [degF] JC Limon MD Work Phone: [facility] 03-26-2022 08:50-0400 Body weight 58.97 kg JC Limon MD Work Phone: [facility] 03-26-2022 08:50-0400 Diastolic blood pressure 62 mm[Hg] JC Limon MD Work Phone: [facility] 03-26-2022 08:50-0400 Heart rate 92 /min JC Limon MD Work Phone: [facility] 03-26-2022 08:50-0400 Respiratory rate 16 /min JC Limon MD Work Phone: [facility] 03-26-2022 08:50-0400 SaO2% (BldA) [Mass fraction] 99 % JC Limon MD Work Phone: [facility] 03-26-2022 08:50-0400 Systolic blood pressure 114 mm[Hg] JC Limon MD Work Phone: [facility] 03-19-2022 09:20-0400 Body height 167.6 cm Patricia Miller APRN.SOLAR PANEL TECHNICIAN Work Phone: [facility] 03-19-2022 09:20-0400 Body temperature 97.59 [degF] Patricia Miller APRN.SOLAR PANEL TECHNICIAN Work Phone: [facility] 03-19-2022 09:20-0400 Body weight 59.51 kg Patricia Miller APRN.SOLAR PANEL TECHNICIAN Work Phone: [facility] 03-19-2022 09:20-0400 Diastolic blood pressure 78 mm[Hg] Patricia Miller APRN.SOLAR PANEL TECHNICIAN Work Phone: [facility] 03-19-2022 09:20-0400 Heart rate 90 /min Patricia Miller APRN.SOLAR PANEL TECHNICIAN Work Phone: [facility] 03-19-2022 09:20-0400 Respiratory rate 16 /min Patricia Miller APRN.SOLAR PANEL TECHNICIAN Work Phone: [facility] 03-19-2022 09:20-0400 SaO2% (BldA) [Mass fraction] 97 % Patricia Miller PLANOGRAPH OPERATOR.SOLAR PANEL TECHNICIAN Work Phone: [facility] 03-19-2022 09:20-0400 Systolic blood pressure 117 mm[Hg] Patricia Miller PLANOGRAPH OPERATOR.SOLAR PANEL TECHNICIAN Work Phone: [facility] 02-20-2022 14:20-0400 Body height 167.6 cm Patricia Miller PLANOGRAPH OPERATOR.SOLAR PANEL TECHNICIAN Work Phone: [facility] 02-20-2022 14:20-0400 Body temperature 97.2 [degF] Patricia Miller PLANOGRAPH OPERATOR.SOLAR PANEL TECHNICIAN Work Phone: [facility] 02-20-2022 14:20-0400 Body weight 59.88 kg Patricia Miller APRN.SOLAR PANEL TECHNICIAN Work Phone: [facility] 02-20-2022 14:20-0400 Diastolic blood pressure 60 mm[Hg] Patricia Miller PLANOGRAPH OPERATOR.SOLAR PANEL TECHNICIAN Work Phone: [facility] 02-20-2022 14:20-0400 Heart rate 108 /min Patricia Miller APRN.SOLAR PANEL TECHNICIAN Work Phone: [facility] 02-20-2022 14:20-0400 Respiratory rate 16 /min Patricia Miller APRN.SOLAR PANEL TECHNICIAN Work Phone: [facility] 02-20-2022 14:20-0400 SaO2% (BldA) [Mass fraction] 98 % Patricia Miller APRN.SOLAR PANEL TECHNICIAN Work Phone: [facility] 02-20-2022 14:20-0400 Systolic blood pressure 95 mm[Hg] Patricia Miller APRN.SOLAR PANEL TECHNICIAN Work Phone: [facility] 02-07-2022 15:33-0400 Body height 167.6 cm Patricia Miller APRN.SOLAR PANEL TECHNICIAN Work Phone: [facility] 02-07-2022 15:33-0400 Body temperature 97.59 [degF] Patricia Paul PLANOGRAPH OPERATOR.SOLAR PANEL TECHNICIAN Work Phone: [facility] 02-07-2022 15:33-0400 Body weight 59.42 kg Patricia Miller PLANOGRAPH OPERATOR.SOLAR PANEL TECHNICIAN Work Phone: [facility] 02-07-2022 15:33-0400 Diastolic blood pressure 59 mm[Hg] Patricia Miller PLANOGRAPH OPERATOR.SOLAR PANEL TECHNICIAN Work Phone: [facility] 02-07-2022 15:33-0400 Heart rate 110 /min Patricia Miller PLANOGRAPH OPERATOR.SOLAR PANEL TECHNICIAN Work Phone: [facility] 02-07-2022 15:33-0400 Respiratory rate 16 /min Patricia Miller PLANOGRAPH OPERATOR.SOLAR PANEL TECHNICIAN Work Phone: [facility] 02-07-2022 15:33-0400 SaO2% (BldA) [Mass fraction] 98 % Patricia Miller PLANOGRAPH OPERATOR.SOLAR PANEL TECHNICIAN Work Phone: [facility] 02-07-2022 15:33-0400 Systolic blood pressure 110 mm[Hg] Patricia Miller PLANOGRAPH OPERATOR.SOLAR PANEL TECHNICIAN Work Phone: [facility] 01-30-2022 15:11-0400 Body temperature 96.69 [degF] JC Limon MD Work Phone: [facility] 01-30-2022 15:11-0400 Body weight 60.33 kg JC Limon MD Work Phone: [facility] 01-30-2022 15:11-0400 Diastolic blood pressure 67 mm[Hg] JC Limon MD Work Phone: [facility] 01-30-2022 15:11-0400 Heart rate 91 /min JC Limon MD Work Phone: [facility] 01-30-2022 15:11-0400 SaO2% (BldA) [Mass fraction] 100 % JC Limon MD Work Phone: [facility] 01-30-2022 15:11-0400 Systolic blood pressure 106 mm[Hg] JC Limon MD Work Phone: [facility] 01-29-2022 08:42-0400 Body height 167.6 cm Verito Whelan MD Work Phone: [facility] 01-29-2022 08:42-0400 Body temperature 97.39 [degF] Verito Whelan MD Work Phone: [facility] 01-29-2022 08:42-0400 Body weight 58.8 kg Verito Whelan MD Work Phone: [facility] 01-29-2022 08:42-0400 Diastolic blood pressure 64 mm[Hg] Verito Whelan MD Work Phone: [facility] 01-29-2022 08:42-0400 Heart rate 60 /min Verito Whelan MD Work Phone: [facility] 01-29-2022 08:42-0400 SaO2% (BldA) [Mass fraction] 94 % Verito Whelan MD Work Phone: [facility] 01-29-2022 08:42-0400 Systolic blood pressure 139 mm[Hg] Verito Whelan MD Work Phone: [facility] 01-22-2022 13:39-0400 Body height 168.8 cm Nina Grigsby MD Work Phone: [facility] 01-22-2022 13:39-0400 Body temperature 98.01 [degF] Nina Grigsby MD Work Phone: [facility] 01-22-2022 13:39-0400 Body weight 59.78 kg Nina Grigsby MD Work Phone: [facility] 01-22-2022 13:39-0400 Diastolic blood pressure 61 mm[Hg] Nina Grigsby MD Work Phone: [facility] 01-22-2022 13:39-0400 Heart rate 90 /min Nina Grigsby MD Work Phone: [facility] 01-22-2022 13:39-0400 Respiratory rate 18 /min Nina Grigsby MD Work Phone: [facility] 01-22-2022 13:39-0400 SaO2% (BldA) [Mass fraction] 100 % Nina Grigsby MD Work Phone: [facility] 01-22-2022 13:39-0400 Systolic blood pressure 110 mm[Hg] Nina Grigsby MD Work Phone: [facility] 01-14-2022 08:21-0400 Body height 168.8 cm Nina Grigsby MD Work Phone: [facility] 01-14-2022 08:21-0400 Body temperature 97.2 [degF] Nina Grigsby MD Work Phone: [facility] 01-14-2022 08:21-0400 Body weight 60.24 kg Nina Grigsby MD Work Phone: [facility] 01-14-2022 08:21-0400 Diastolic blood pressure 65 mm[Hg] Nina Grigsby MD Work Phone: [facility] 01-14-2022 08:21-0400 Heart rate 85 /min Nina Grigsby MD Work Phone: [facility] 01-14-2022 08:21-0400 Respiratory rate 16 /min Nina Grigsby MD Work Phone: [facility] 01-14-2022 08:21-0400 SaO2% (BldA) [Mass fraction] 99 % Nina Grigsby MD Work Phone: [facility] 01-14-2022 08:21-0400 Systolic blood pressure 123 mm[Hg] Nina Grigsby MD Work Phone: [facility] 12-24-2021 09:26-0400 Body height 168.8 cm Nina Grigsby MD Work Phone: [facility] 12-24-2021 09:26-0400 Body temperature 97.81 [degF] Nina Grigsby MD Work Phone: [facility] 12-24-2021 09:26-0400 Body weight 61.05 kg Nina Grigsby MD Work Phone: [facility] 12-24-2021 09:26-0400 Diastolic blood pressure 70 mm[Hg] Nina Grigsby MD Work Phone: [facility] 12-24-2021 09:26-0400 Heart rate 81 /min Nina Grigsby MD Work Phone: [facility] 12-24-2021 09:26-0400 Respiratory rate 16 /min Nina Grigsby MD Work Phone: [facility] 12-24-2021 09:26-0400 SaO2% (BldA) [Mass fraction] 100 % Nina Grigsby MD Work Phone: [facility] 12-24-2021 09:26-0400 Systolic blood pressure 120 mm[Hg] Nina Grigsby MD Work Phone: [facility] 12-03-2021 09:29-0400 Body height 168.8 cm Yusef Jessica PA-C Work Phone: [facility] 12-03-2021 09:29-0400 Body temperature 97.81 [degF] Yusef Jessica PA-C Work Phone: [facility] 12-03-2021 09:29-0400 Body weight 59.69 kg Yusef Jessica PA-C Work Phone: [facility] 12-03-2021 09:29-0400 Diastolic blood pressure 63 mm[Hg] Yusef Jessica PA-C Work Phone: [facility] 12-03-2021 09:29-0400 Heart rate 92 /min Yusef Jessica PA-C Work Phone: [facility] 12-03-2021 09:29-0400 Respiratory rate 16 /min Yusef Jessica PA-C Work Phone: [facility] 12-03-2021 09:29-0400 SaO2% (BldA) [Mass fraction] 98 % Yusef Jessica PA-C Work Phone: [facility] 12-03-2021 09:29-0400 Systolic blood pressure 125 mm[Hg] Yusef Pandya PA-C Work Phone: [facility] 11-30-2021 10:29-0400 Body height 168.8 cm Patricia Miller PLANOGRAPH OPERATOR.SOLAR PANEL TECHNICIAN Work Phone: [facility] 11-30-2021 10:29-0400 Body temperature 97.3 [degF] Patricia Miller PLANOGRAPH OPERATOR.SOLAR PANEL TECHNICIAN Work Phone: [facility] 11-30-2021 10:29-0400 Body weight 58.24 kg Patricia Miller PLANOGRAPH OPERATOR.SOLAR PANEL TECHNICIAN Work Phone: [facility] 11-30-2021 10:29-0400 Diastolic blood pressure 55 mm[Hg] Patricia Miller PLANOGRAPH OPERATOR.SOLAR PANEL TECHNICIAN Work Phone: [facility] 11-30-2021 10:29-0400 Heart rate 90 /min Patricia Miller PLANOGRAPH OPERATOR.SOLAR PANEL TECHNICIAN Work Phone: [facility] 11-30-2021 10:29-0400 Respiratory rate 16 /min Patricia Miller PLANOGRAPH OPERATOR.SOLAR PANEL TECHNICIAN Work Phone: [facility] 11-30-2021 10:29-0400 SaO2% (BldA) [Mass fraction] 98 % Patricia Miller PLANOGRAPH OPERATOR.SOLAR PANEL TECHNICIAN Work Phone: [facility] 11-30-2021 10:29-0400 Systolic blood pressure 95 mm[Hg] Patricia Miller PLANOGRAPH OPERATOR.SOLAR PANEL TECHNICIAN Work Phone: [facility] 11-26-2021 09:24-0400 Body height 168.8 cm Nina Grigsby MD Work Phone: [facility] 11-26-2021 09:24-0400 Body temperature 97.5 [degF] Nina Grigsby MD Work Phone: [facility] 11-26-2021 09:24-0400 Body weight 59.06 kg Nina Grigsby MD Work Phone: [facility] 11-26-2021 09:24-0400 Diastolic blood pressure 65 mm[Hg] Nina Grigsby MD Work Phone: [facility] 11-26-2021 09:24-0400 Heart rate 75 /min Nina Grigsby MD Work Phone: [facility] 11-26-2021 09:24-0400 Respiratory rate 16 /min Nina Grigsby MD Work Phone: [facility] 11-26-2021 09:24-0400 SaO2% (BldA) [Mass fraction] 100 % Nina Grigsby MD Work Phone: [facility] 11-26-2021 09:24-0400 Systolic blood pressure 111 mm[Hg] Nina Grigsby MD Work Phone: [facility] 11-21-2021 15:10-0400 Body temperature 98.6 [degF] Chair Jose Work Phone: [facility] 11-21-2021 15:10-0400 Diastolic blood pressure 65 mm[Hg] Chair [place] Work Phone: [facility] 11-21-2021 15:10-0400 Heart rate 78 /min Chair Jose Work Phone: [facility] 11-21-2021 15:10-0400 Respiratory rate 16 /min Chair [place] Work Phone: [facility] 11-21-2021 15:10-0400 SaO2% (BldA) [Mass fraction] 99 % Chair [place] Work Phone: [facility] 11-21-2021 15:10-0400 Systolic blood pressure 119 mm[Hg] Chair [place] Work Phone: [facility] 11-19-2021 10:41-0400 Diastolic blood pressure 71 mm[Hg] Chair [place] Work Phone: [facility] 11-19-2021 10:41-0400 Systolic blood pressure 123 mm[Hg] Chair [place] Work Phone: [facility] 11-19-2021 09:20-0400 Body temperature 98.4 [degF] Chair [place] Work Phone: [facility] 11-19-2021 09:20-0400 Heart rate 90 /min Chair [place] Work Phone: [facility] 11-19-2021 09:20-0400 Respiratory rate 18 /min Chair [place] Work Phone: [facility] 11-19-2021 09:20-0400 SaO2% (BldA) [Mass fraction] 99 % Chair [place] Work Phone: [facility] 11-16-2021 10:13-0400 Diastolic blood pressure 95 mm[Hg] Chair [place] Work Phone: [facility] 11-16-2021 10:13-0400 Systolic blood pressure 170 mm[Hg] Chair [place] Work Phone: [facility] 11-16-2021 09:02-0400 Body temperature 97.39 [degF] Chair [place] Work Phone: [facility] 11-16-2021 09:02-0400 Heart rate 63 /min Chair [place] Work Phone: [facility] 11-16-2021 09:02-0400 Respiratory rate 18 /min Chair [place] Work Phone: [facility] 11-16-2021 09:02-0400 SaO2% (BldA) [Mass fraction] 99 % Chair Jose Work Phone: [facility] 11-15-2021 14:36-0400 Body temperature 97 [degF] Chair [place] Work Phone: [facility] 11-15-2021 14:36-0400 Diastolic blood pressure 74 mm[Hg] Chair [place] Work Phone: [facility] 11-15-2021 14:36-0400 Heart rate 65 /min Chair [place] Work Phone: [facility] 11-15-2021 14:36-0400 Respiratory rate 18 /min Chair [place] Work Phone: [facility] 11-15-2021 14:36-0400 SaO2% (BldA) [Mass fraction] 99 % Chair Jose Work Phone: [facility] 11-15-2021 14:36-0400 Systolic blood pressure 137 mm[Hg] Chair [place] Work Phone: [facility] 11-13-2021 11:36-0400 Diastolic blood pressure 69 mm[Hg] Chair [place] Work Phone: [facility] 11-13-2021 11:36-0400 Heart rate 70 /min Chair Jose Work Phone: [facility] 11-13-2021 11:36-0400 Respiratory rate 18 /min Chair [place] Work Phone: [facility] 11-13-2021 11:36-0400 SaO2% (BldA) [Mass fraction] 99 % Chair [place] Work Phone: [facility] 11-13-2021 11:36-0400 Systolic blood pressure 116 mm[Hg] Chair Jose Work Phone: [facility] 11-05-2021 08:52-0400 Body height 168.8 cm Patricia Miller APRN.SOLAR PANEL TECHNICIAN Work Phone: [facility] 11-05-2021 08:52-0400 Body temperature 97.3 [degF] Patricia Miller APRN.SOLAR PANEL TECHNICIAN Work Phone: [facility] 11-05-2021 08:52-0400 Body weight 58.6 kg Patricia Miller APRN.SOLAR PANEL TECHNICIAN Work Phone: [facility] 11-05-2021 08:52-0400 Diastolic blood pressure 66 mm[Hg] Patricia Miller APRN.SOLAR PANEL TECHNICIAN Work Phone: [facility] 11-05-2021 08:52-0400 Heart rate 93 /min Patricia Miller APRN.SOLAR PANEL TECHNICIAN Work Phone: [facility] 11-05-2021 08:52-0400 Respiratory rate 16 /min Patricia Miller APRN.SOLAR PANEL TECHNICIAN Work Phone: [facility] 11-05-2021 08:52-0400 SaO2% (BldA) [Mass fraction] 98 % Patricia Miller APRN.SOLAR PANEL TECHNICIAN Work Phone: [facility] 11-05-2021 08:52-0400 Systolic blood pressure 115 mm[Hg] Patricia Miller APRN.SOLAR PANEL TECHNICIAN Work Phone: [facility] 10-24-2021 14:18-0400 Body temperature 97.39 [degF] JC Limon MD Work Phone: [facility] 10-24-2021 14:18-0400 Body weight 58.51 kg JC Limon MD Work Phone: [facility] 10-24-2021 14:18-0400 Diastolic blood pressure 67 mm[Hg] JC Limon MD Work Phone: [facility] 10-24-2021 14:18-0400 Heart rate 101 /min JC Limon MD Work Phone: [facility] 10-24-2021 14:18-0400 Respiratory rate 16 /min JC Limon MD Work Phone: [facility] 10-24-2021 14:18-0400 SaO2% (BldA) [Mass fraction] 98 % JC Limon MD Work Phone: [facility] 10-24-2021 14:18-0400 Systolic blood pressure 111 mm[Hg] JC Limon MD Work Phone: [facility] 10-19-2021 09:58-0400 Body height 168.8 cm Renetta Ponce MD Work Phone: [facility] 10-19-2021 09:58-0400 Body temperature 97.59 [degF] Renetta Ponce MD Work Phone: [facility] 10-19-2021 09:58-0400 Body weight 58.33 kg Renetta Ponce MD Work Phone: [facility] 10-19-2021 09:58-0400 Diastolic blood pressure 72 mm[Hg] Renetta Ponce MD Work Phone: [facility] 10-19-2021 09:58-0400 Heart rate 98 /min Renetta Ponce MD Work Phone: [facility] 10-19-2021 09:58-0400 Respiratory rate 20 /min Renetta Ponce MD Work Phone: [facility] 10-19-2021 09:58-0400 SaO2% (BldA) [Mass fraction] 100 % Renetta Ponce MD Work Phone: [facility] 10-19-2021 09:58-0400 Systolic blood pressure 127 mm[Hg] Renetta Ponce MD Work Phone: [facility] 10-11-2021 15:44-0400 Body height 170.2 cm Aracelis Carrillo PLANOGRAPH OPERATOR.SOLAR PANEL TECHNICIAN Work Phone: [facility] 10-11-2021 15:44-0400 Body temperature 98.71 [degF] Aracelis Maygas PLANOGRAPH OPERATOR.SOLAR PANEL TECHNICIAN Work Phone: [facility] 10-11-2021 15:44-0400 Body weight 58.97 kg Aracelis Carrillo PLANOGRAPH OPERATOR.SOLAR PANEL TECHNICIAN Work Phone: [facility] 10-11-2021 15:44-0400 Diastolic blood pressure 58 mm[Hg] Aracelis Maygas PLANOGRAPH OPERATOR.SOLAR PANEL TECHNICIAN Work Phone: [facility] 10-11-2021 15:44-0400 Heart rate 85 /min Aracelis Carrillo PLANOGRAPH OPERATOR.SOLAR PANEL TECHNICIAN Work Phone: [facility] 10-11-2021 15:44-0400 SaO2% (BldA) [Mass fraction] 98 % Aracelis Carrillo PLANOGRAPH OPERATOR.SOLAR PANEL TECHNICIAN Work Phone: [facility] 10-11-2021 15:44-0400 Systolic blood pressure 99 mm[Hg] Aracelis Lalolaly HORNE.SOLAR PANEL TECHNICIAN Work Phone: [facility] Encounters Encounter Date Encounter Type Care Provider Facility Start: 03-19-2024 End: 03-20-2024 ambulatory Jair Poemood Facility:[facility] Start: 03-19-2024 End: 03-20-2024 Evaluation and management of inpatient [facility] [place] [facility] Work Phone: Start: 03-19-2024 End: 03-20-2024 observation encounter NON STAFF [facility] Work Phone: Start: 03-19-2024 End: 03-19-2024 Emergency department patient visit [facility] Work Phone: Start: 03-18-2024 End: 03-18-2024 Emergency department patient visit [facility] Work Phone: Start: 03-18-2024 End: 03-18-2024 Patient encounter procedure Nina Grigsby MD Work Phone: Hematology/Oncology Start: 03-18-2024 End: 03-18-2024 ambulatory Nina Grigsby MD Work Phone: Hematology/Oncology Comment on above: 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); Hypothyroidism due to medication; Neoplasm related pain; Neuropathy due to chemotherapeutic drug (HCC); Chronic obstructive pulmonary disease, unspecified COPD type (HCC); Altered mental status, unspecified altered mental status type Start: 03-17-2024 End: 03-17-2024 ambulatory ESTELLA FISH Facility:[facility] Start: 03-17-2024 End: 03-17-2024 Nutrition therapy Estella Fish APRN.SOLAR PANEL TECHNICIAN Work Phone: Palliative Medicine Comment on above: Encounter for pallia tive care (Primary Dx); Neuropathy due to chemotherapeutic drug (HCC); Neoplasm related pain; Chronic left shoulder pain; Malignant neoplasm of upper lobe of left lung (HCC); Nausea; Weight loss, unintentional; Protein-calorie malnutrition, unspecified severity (HCC); Anxiety Start: 03-17-2024 End: 03-17-2024 Telemedicine consultation with patient Estella Amelie Fish APRN.CNP Work Phone: Palliative Medicine Start: 03-17-2024 End: 03-17-2024 ambulatory Enrique L Cate Facility:[facility] Start: 03-15-2024 End: 03-15-2024 Telephone encounter Denita Rai RN Work Phone: Hematology/Oncology Comment on above: Care Coordination (A ppointment Questions) Start: 03-15-2024 End: 03-15-2024 ambulatory MERARY LUCAS Facility:[facility] Start: 03-15-2024 End: 03-15-2024 Patient encounter procedure Merary Lucas MD Work Phone: Pulmonary Medicine Comment on above: Centrilobular emphys luke (HCC) (Primary Dx); Malignant neoplasm of upper lobe of left lung (HCC); Coronary artery disease involving [place] coronary artery of [place] heart without angina pectoris; PAD (peripheral artery disease) (HCC); Dyspnea on exertion Start: 03-09-2024 End: 03-11-2024 Telephone encounter Deborah Warner RN Hematology/Oncology Comment on above: Patient Update Orders Start: 03-09-2024 End: 03-10-2024 ambulatory Chair Bee Mendez Work Phone: Hematology/Oncology Comment on above: Malignant neoplasm o f upper lobe of left lung (HCC) (Primary Dx) Start: 03-09-2024 End: 03-09-2024 Subsequent hospital visit by physician Arrival Time Radiology Work Phone: Radiology Pet CT Comment on above: 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] Start: 03-01-2024 Telephone encounter Estella Fish APRN.CNP Work Phone: Palliative Medicine Comment on above: Refill Request Start: 03-01-2024 End: 03-01-2024 ambulatory Enrique L Cate Facility:[facility] [place] Start: 02-24-2024 End: 03-10-2024 Telephone encounter Denita Rai RN Work Phone: Hematology/Oncology Comment on above: Care Coordination (A bnormal Neck CT) Start: 02-20-2024 Telephone encounter Denita rushing RN Work Phone: Hematology/Oncology Comment on above: Care Coordination (M edication Request) Numbness; Med Change Request Start: 02-18-2024 Telephone encounter Denita rushing RN Work Phone: Hematology/Oncology Comment on above: Care Coordination (P t Update) Start: 02-16-2024 Telephone encounter Bernadine Rodriguez RN Work Phone: Hematology/Oncology Comment on above: Care Coordination (H ome oxygen) Start: 02-10-2024 Telephone encounter Denita rushing RN Work Phone: Hematology/Oncology Comment on above: Care Coordination (S hortness of Breath) Start: 02-07-2024 End: 02-07-2024 Emergency department patient visit [facility] Work Phone: Start: 02-06-2024 End: 02-06-2024 ambulatory Enrique Esposito Facility:[facility] Start: 02-04-2024 Refill Nina Grigsby MD Work Phone: [facility] Comment on above: Refill Request Start: 02-03-2024 Telephone encounter Yusef springer PA-C Work Phone: [facility] Comment on above: Radiology US Start: 02-03-2024 End: 02-03-2024 Office outpatient visit 25 minutes Yusef Pandya PA-C Work Phone: Hematology/Oncology Comment on above: 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 ) Start: 01-12-2024 End: 01-12-2024 ambulatory [facility] Facility:[facility] Start: 01-09-2024 Telephone encounter Bernadine Rodriguez RN Work Phone: Hematology/Oncology Comment on above: Care Coordination (i nsomnia) Start: 01-08-2024 End: 01-08-2024 ambulatory [facility] Facility:[facility] Start: 12-26-2023 Telephone encounter Julieth Tapia RN [employer] Comment on above: Care Coordination (P ain ) Insurance Authorizat ion Insurance Authorizat ion (Oxy IR 10 mg) Start: 12-24-2023 Patient encounter procedure G Erasto Limon MD Work Phone: Radiation Oncology Start: 12-24-2023 Radiation Oncology Note G Vik Limon MD Work Phone: Radiation Oncology Comment on above: Completion Note Start: 12-24-2023 End: 12-24-2023 Refill Denita Rai RN Work Phone: Hematology/Oncology Comment on above: Refill Request (Synt hroid) Start: 12-23-2023 End: 12-23-2023 Patient encounter procedure Nina Grigsby MD Work Phone: Hematology/Oncology Start: 12-23-2023 End: 12-23-2023 ambulatory Nina Grigsby MD Work Phone: Hematology/Oncology Comment on above: 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); Tonsillar mass; Hypothyroidism due to medication; Cancer associated pain Start: 12-23-2023 End: 12-23-2023 ambulatory [facility] Facility:[facility] Start: 12-22-2023 End: 12-22-2023 Patient encounter procedure Jyoti Limon MD Work Phone: Radiation Oncology Comment on above: Malignant neoplasm o f upper lobe of left lung (HCC) (Primary Dx) Start: 12-22-2023 End: 12-22-2023 ambulatory Jyoti LIMON Facility:[facility] Start: 12-19-2023 End: 12-19-2023 ambulatory Jyoti LIMON Facility:[facility] Start: 12-18-2023 End: 12-18-2023 ambulatory Jyoti LIMON Facility:[facility] Start: 12-17-2023 End: 12-17-2023 ambulatory Jyoti LIMON Facility:[facility] Start: 12-16-2023 End: 12-16-2023 ambulatory Jyoti LIMON Facility:[facility] Start: 12-16-2023 End: 12-16-2023 Patient encounter procedure Jyoti Limon MD Work Phone: Radiation Oncology Comment on above: Malignant neoplasm o f upper lobe of left lung (HCC) (Primary Dx) Start: 12-16-2023 Telephone encounter Estella Fish APRN.CNP Work Phone: Radiation Oncology Comment on above: Patient Update; Medi cation Problem Start: 12-12-2023 End: 12-12-2023 ambulatory Jyoti LIMON Facility:[facility] Start: 12-11-2023 End: 12-11-2023 ambulatory Jyoti LIMON Facility:[facility] Start: 12-10-2023 End: 12-10-2023 ambulatory Jyoti LIMON Facility:[facility] Start: 12-10-2023 End: 12-10-2023 Patient encounter procedure Jyoti Limon MD Work Phone: Radiation Oncology Comment on above: Malignant neoplasm o f upper lobe of left lung (HCC) (Primary Dx) Start: 12-03-2023 End: 12-04-2023 Patient encounter procedure Jyoti Limon MD Work Phone: Radiation Oncology Comment on above: Malignant neoplasm o f upper lobe of left lung (HCC) (Primary Dx) Start: 12-03-2023 Radiation Oncology Note G Vik Limon MD Work Phone: Radiation Oncology Comment on above: Simulation Note Treatment Planning Start: 12-03-2023 Telephone encounter Estella Fish APRN.SOLAR PANEL TECHNICIAN Work Phone: Radiation Oncology Comment on above: Patient Update Start: 12-03-2023 End: 12-04-2023 ambulatory ENRIQUE ESPOSITO Facility:[facility] Start: 12-02-2023 End: 12-02-2023 ambulatory Chair 21 Jose Work Phone: Hematology/Oncology Comment on above: Malignant neoplasm o f upper lobe of left lung (HCC) (Primary Dx) 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); Tonsillar mass; Hypothyroidism due to medication; Cancer associated pain; Anxiety Start: 12-02-2023 End: 12-02-2023 Patient encounter procedure Nina Grigsby MD Work Phone: Hematology/Oncology Comment on above: Malignant neoplasm o f upper lobe of left lung (HCC) (Primary Dx) Start: 11-25-2023 Chart abstracting Olga Lidia gallagher RN Work Phone: Hematology/Oncology Comment on above: Research (IRB [id number] Informed Consent) Start: 11-25-2023 End: 11-26-2023 ambulatory Chair 21 Jose Work Phone: Hematology/Oncology Comment on above: Malignant neoplasm o f upper lobe of left lung (HCC) (Primary Dx) Start: 11-24-2023 Telephone encounter Nina cutler MD Work Phone: Hematology/Oncology Comment on above: Orders Start: 11-21-2023 End: 11-21-2023 ambulatory ESTELLA FISH Facility:[facility] Start: 11-21-2023 End: 11-21-2023 Patient encounter procedure Estella Fish PLANOGRAPH OPERATOR.SOLAR PANEL TECHNICIAN Work Phone: Palliative Medicine Comment on above: Palliative care by marguerite pecialist (Primary Dx); Neuropathy due to chemotherapeutic [...] Coordination (A ppointments) Start: 11-04-2023 Telephone encounter Maricruz Guzmán Hematology/Oncology Comment on above: Results Care Coordination (C all Request) Start: 11-04-2023 End: 11-04-20[address] therapy [address]ique Murphy RD Work Phone: Nutrition Therapy Comment on above: Nutrition Assessment Start: 11-04-2023 End: 11-04-2023 Patient encounter procedure Nina Grigsby MD Work Phone: [facility] Start: 11-04-2023 End: 11-04-[address] Work Phone: [facility] Comment on above: 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); Tonsillar mass; Hypothyroidism due to medication; Cancer associated pain; Centrilobular emphysema (HCC); Abnormal LFTs Start: 10-21-2023 Telephone encounter Estella Fish APRN.CNP Work Phone: Hematology/Oncology Comment on above: Pain Start: 10-21-2023 End: 10-21-2023 ambulatory ENRIQUE ESPOSITO Facility:[facility] Start: 10-20-2023 End: 10-20-2023 Refill Nina Grigsby MD Work Phone: [facility] Comment on above: Refill Request 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); Tonsillar mass; Hypothyroidism due to medication; Cancer associated pain; Centrilobular emphysema (HCC) Start: 10-15-2023 End: 10-15-2023 ambulatory Enrique Esposito Facility:[facility] Start: 10-08-2023 End: 10-08-2023 ambulatory Enrique L Cate Facility:[facility] Start: 09-22-2023 End: 09-22-20[address] Nutrition therapy [address]ique Murphy RD Work Phone: Nutrition Therapy Comment on above: Nutrition Assessment (No show) Start: 09-22-2023 End: 09-22-2023 Patient encounter procedure Nina Grigsby MD Work Phone: [facility] Start: 09-22-2023 End: 09-22-2023 ambulatory Nina Grigsby MD Work Phone: Hematology/Oncology Comment on above: 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); Tonsillar mass; Hypothyroidism due to medication; Cancer associated pain Start: 09-15-2023 End: 09-15-2023 ambulatory NINA GRIGSBY Facility:[facility] Start: 09-02-2023 End: 09-02-2023 ambulatory Enrique L Cate Facility:[facility] [place] Start: 08-26-2023 Telephone encounter Denita rushing RN Work Phone: Hematology/Oncology Comment on above: Care Coordination (T SH Result/) Start: 08-25-2023 End: 08-25-2023 Patient encounter procedure Nina Grigsby MD Work Phone: [facility] Start: 08-25-2023 End: 08-25-2023 ambulatory Nina Grigsby MD Work Phone: Hematology/Oncology Comment on above: 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); Tonsillar mass; Hypothyroidism due to medication; Centrilobular emphysema (HCC); Cancer associated pain Start: 08-20-2023 End: 08-20-2023 ambulatory Enrique L Cate Facility:[facility] [place] Start: 08-15-2023 End: 08-15-2023 ambulatory ESTELLA FISH Facility:[facility] Start: 07-28-2023 End: 07-28-2023 ambulatory PATRICIA MILLER Facility:[facility] Start: 07-23-2023 End: 07-23-2023 ambulatory Enrique L Cate Facility:[facility] [place] Start: 07-09-2023 End: 07-09-2023 ambulatory Enrique Esposito Facility:[facility] [place] Start: 06-30-2023 End: 06-30-2023 Patient encounter procedure Nina Grigsby MD Work Phone: [facility] Start: 06-30-2023 End: 07-01-2023 ambulatory Nina Grigsby MD Work Phone: Hematology/Oncology Comment on above: 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); Tonsillar mass; Primary hypertension; Centrilobular emphysema (HCC); Coronary artery disease involving [place] coronary artery of [place] heart without angina pectoris; Hypothyroidism due to medication; Cancer related pain Start: 06-24-2023 End: 06-24-2023 ambulatory CHRISTINA AZUL Facility:[facility] Start: 06-23-2023 End: 06-23-2023 ambulatory Jyoti LIMON Facility:[facility] Start: 06-20-2023 End: 06-20-2023 ambulatory CHRISTINA AZUL Facility:[facility] Start: 06-19-2023 End: 06-19-2023 ambulatory CHRISTINA AZUL Facility:[facility] Start: 06-18-2023 End: 06-18-2023 ambulatory CHRISTINA AZUL Facility:[facility] Start: 06-13-2023 End: 06-13-2023 ambulatory ESTELLA FISH Facility:[facility] Start: 06-13-2023 End: 06-13-2023 Patient encounter procedure Estella Fish PLANOGRAPH OPERATOR.SOLAR PANEL TECHNICIAN Work Phone: Palliative Medicine Comment on above: Palliative care by s pecialist (Primary Dx); 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); Cancer related pain; Opioid contract exists; Insomnia due to medical condition; Anorexia; Protein-calorie malnutrition, unspecified severity (HCC); Nausea Start: 06-10-2023 End: 06-10-2023 Patient encounter procedure [facility] Provider [facility] Comment on above: Oropharnyx cancer (H CC) (Primary Dx) Start: 06-10-2023 Radiation Oncology Note Jyoti Limon MD Work Phone: Radiation Oncology Comment on above: Simulation Note Treatment Planning Start: 06-10-2023 End: 06-10-2023 ambulatory Jyoti LIMON Facility:[facility] Start: 06-03-2023 Refill Nina Grigsby MD Work Phone: Hematology/Oncology Comment on above: Erroneous encounter- disregard Start: 06-02-2023 End: 06-02-2023 Patient encounter procedure Patricia Miller PLANOGRAPH OPERATOR.SOLAR PANEL TECHNICIAN Work Phone: [facility] Start: 06-02-2023 End: 06-02-2023 ambulatory Patricia Miller PLANOGRAPH OPERATOR.SOLAR PANEL TECHNICIAN Work Phone: Hematology/Oncology Comment on above: Malignant neoplasm o f upper lobe of left lung (HCC) (Primary Dx); Centrilobular emphysema (HCC); CAD in [place] artery; PVD (peripheral vascular disease) (HCC); Cancer related pain; Tonsillar mass; Abnormal LFTs; Anxiety; Hypothyroidism due to medication Start: 05-30-2023 End: 05-30-2023 Patient encounter procedure Jyoti Limon MD Work Phone: Radiation Oncology Comment on above: Oropharnyx cancer (H CC) (Primary Dx) Start: 05-30-2023 End: 05-30-2023 ambulatory CHRISTINA AZUL Facility:[facility] Start: 05-27-2023 End: 05-27-2023 ambulatory NINA GRIGSBY Facility:[facility] Start: 05-27-2023 End: 05-27-2023 Patient encounter procedure Damon Tse MD Work Phone: Otolaryngology Comment on [...] Start: 05-16-2023 End: 05-16-2023 Patient encounter procedure Estella Fish PLANOGRAPH OPERATOR.SOLAR PANEL TECHNICIAN Work Phone: Palliative Medicine Comment on above: Palliative care by s pecialist (Primary Dx); Neuropathy due to chemotherapeutic drug (HCC) ; Nausea; Anorexia; Protein-calorie malnutrition, unspecified severity (HCC); Anxiety; Insomnia due to medical condition Refill Request Start: 05-16-2023 End: 05-16-2023 ambulatory ESTELLA FISH Facility:[facility] Start: 05-15-2023 Telephone encounter Denita rushing RN Work Phone: Hematology/Oncology Comment on above: Care Coordination (T SH Results) Care Coordination (P ain; Constipation) Start: 05-13-2023 Telephone encounter Analisa Villatoro [facility] Work Phone: Hematology/Oncology Comment on above: Treatment Planning Refill Request Start: 05-13-2023 End: 05-13-2023 ambulatory [facility] Facility:[facility] Start: 05-12-2023 End: 05-12-2023 ambulatory [facility] Facility:[facility] Start: 05-08-2023 Telephone encounter Denita rushing RN Work Phone: Hematology/Oncology Comment on above: Care Coordination (S ore Throat) Start: 05-05-2023 Refill Analisa Victor brielle [facility] Work Phone: [facility] Comment on above: Refill Request Start: 04-23-2023 Telephone encounter Denita rushing RN Work Phone: Hematology/Oncology Comment on above: Care Coordination (T SH Results) Start: 04-22-2023 End: 04-23-2023 ambulatory NINA GRIGSBY Facility:[facility] Start: 04-22-2023 End: 04-22-2023 ambulatory CHRISTINA AZUL Facility:[facility] Start: 04-16-2023 End: 04-16-2023 ambulatory Enrique Esposito Facility:[facility] Start: 04-08-2023 Telephone encounter Denita rushing RN Work Phone: Hematology/Oncology Comment on above: Care Coordination (V accine Question) Start: 04-01-2023 End: 04-01-2023 Patient encounter procedure Patricia Miller PLANOGRAPH OPERATOR.SOLAR PANEL TECHNICIAN Work Phone: [facility] Start: 04-01-2023 End: 04-01-2023 ambulatory Particia Miller PLANOGRAPH OPERATOR.SOLAR PANEL TECHNICIAN Work Phone: Hematology/Oncology Comment on above: 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); Cancer related pain; Abnormal LFTs; Anxiety; Centrilobular emphysema (HCC); PVD (peripheral vascular disease) (HCC); Anemia due to antineoplastic chemotherapy; Skin rash Malignant neoplasm o f upper lobe of left lung (HCC) (Primary Dx) Start: 03-11-2023 End: 03-11-2023 ambulatory Chair Rebecca Mendez Work Phone: Hematology/Oncology Comment on above: Malignant neoplasm o f upper lobe of left lung (HCC) (Primary Dx) 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); Malaise and fatigue; Cancer related pain; Anxiety; Rash Start: 03-11-2023 End: 03-11-2023 Patient encounter procedure Nina Grigsby MD Work Phone: [facility] Start: 03-10-2023 Refill Nina Grigsby MD Work Phone: [facility] Comment on above: Refill Request Care Coordination (R shankar) Start: 03-05-2023 Telephone encounter Denita rushing RN Work Phone: Hematology/Oncology Comment on above: Care Coordination (C ough; Cold Symptoms) Start: 02-18-2023 End: 02-18-2023 ambulatory Chair 17 Jose Work Phone: Hematology/Oncology Comment on above: Malignant neoplasm o f upper lobe of left lung (HCC) (Primary Dx) 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); Cancer related pain; Anxiety Start: 02-18-2023 End: 02-18-2023 Patient encounter procedure Nina Grigsby MD Work Phone: [facility] Start: 02-17-2023 Telephone encounter Nina cutler MD Work Phone: Hematology/Oncology Comment on [...] Start: 01-28-2023 End: 01-28-2023 ambulatory Chair 18 Jose Work Phone: Hematology/Oncology Comment on above: Malignant neoplasm o f upper lobe of left lung (HCC) (Primary Dx) Start: 01-13-2023 Refill Denita naranjo RN Work Phone: Hematology/Oncology Comment on above: Refill Request (Xana x) Start: 01-09-2023 Telephone encounter Nina cutler MD Work Phone: Hematology/Oncology Comment on above: Records faxed Start: 01-08-2023 Telephone encounter Minna ROBLES H ematology/Oncology Comment on above: Social Work Services Appointment Start: 01-07-2023 Telephone encounter Patricia davidson APRN.SOLAR PANEL TECHNICIAN [facility]: No Show Start: 01-07-2023 End: 01-07-20[address] Nutrition therapy Dominique Murphy RD Work Phone: Nutrition Therapy Comment on above: Nutrition Assessment Start: 01-07-2023 End: 01-07-2023 ambulatory Chair 17 Jose Work Phone: Hematology/Oncology Comment on above: Malignant neoplasm o f upper lobe of left lung (HCC) (Primary Dx) Start: 01-06-2023 Telephone encounter Nina cutler MD Work Phone: Hematology/Oncology Comment on above: Lab Orders Start: 01-03-2023 End: 01-03-2023 Emergency department patient visit MD Christina Azul Work Phone: [facility] Work Phone: Start: 01-03-2023 Telephone encounter Denita rushing RN Work Phone: Hematology/Oncology Comment on above: Care Coordination (H emoptysis) Start: 12-24-2022 Telephone encounter Denita rushing RN Work Phone: Hematology/Oncology Comment on above: Care Coordination (S ore Throat; Cough) Care Coordination (M MW Update) Start: 12-17-2022 End: 12-17-2022 ambulatory Chair 18 Jose Work Phone: Hematology/Oncology Comment on above: Malignant neoplasm o f upper lobe of left lung (HCC) (Primary Dx) 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); Abnormal LFTs; Cancer related pain Start: 12-17-2022 End: 12-17-2022 Patient encounter procedure Nina Grigsby MD Work Phone: [facility] Start: 11-25-2022 End: 11-25-2022 ambulatory Chair 17 Jose Work Phone: Hematology/Oncology Comment on above: Malignant neoplasm o f upper lobe of left lung (HCC) (Primary Dx) Start: 11-25-2022 End: 11-25-2022 Nutrition therapy Patricia Miller APRN.CNP Work Phone: Hematology/Oncology Comment on above: Malignant neoplasm o f upper lobe of left lung (HCC) (Primary Dx); Centrilobular emphysema (HCC); Abnormal LFTs; Cancer related pain; PVD (peripheral vascular disease) (HCC); Malaise and fatigue; Protein-calorie malnutrition, unspecified severity (HCC) Start: 11-25-2022 End: 11-25-2022 Patient encounter procedure Patricia Paul ARBOLEDA Work Phone: [employer] Start: 11-21-2022 Telephone encounter Nina cutler MD Work Phone: Hematology/Oncology Comment on above: Lab Orders Start: 11-20-2022 Telephone encounter Nina cutler MD Work Phone: Radiation Oncology Comment on above: Depression; Decrease d Appetite Start: 11-20-2022 End: 11-20-2022 Patient encounter procedure Jyoti Limon MD Work Phone: Radiation Oncology Comment on above: Cancer associated pa in (Primary Dx); Malignant neoplasm of upper lobe of left lung (HCC) Start: 11-18-2022 End: 11-18-2022 ambulatory Nina Grigsby MD Work Phone: Hematology/Oncology Comment on above: 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); Cancer related pain; Abnormal LFTs Start: 11-18-2022 End: 11-18-2022 Patient encounter procedure Nina Grigsby MD Work Phone: [facility] Start: 11-14-2022 Telephone encounter Nina cutler MD Work Phone: Hematology/Oncology Comment on above: Lab Orders Start: 11-12-2022 Patient encounter procedure Jyoti Limon MD Work Phone: [employer] Start: 11-12-2022 Radiation Oncology Note Jyoti Limon MD Work Phone: Radiation Oncology Comment on above: Completion Note Start: 11-11-2022 End: 11-11-2022 Refill Nina Grigsby MD Work Phone: Radiation Oncology Comment on above: Refill Request Insurance Authorizat ion (Oxycodone-Acetaminophen ) Malignant neoplasm o f upper lobe of left lung (HCC) (Primary Dx) 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); Cancer related pain; Abnormal LFTs Start: 11-04-2022 End: 11-04-2022 Patient encounter procedure Jyoti Limon MD Work Phone: Radiation Oncology Comment on above: Malignant neoplasm o f upper lobe of left lung (HCC) (Primary Dx) Start: 11-02-2022 Telephone encounter Jayson davis MD Work Phone: Hematology/Oncology Comment on above: Patient Question Start: 10-31-2022 End: 10-31-2022 ambulatory Nina Grigsby MD Work Phone: Hematology/Oncology Comment on above: 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); Cancer related pain; Centrilobular emphysema (HCC); Primary hypertension Start: 10-31-2022 End: 10-31-2022 Patient encounter procedure Nina Grigsby MD Work Phone: [facility] Start: 10-30-2022 End: 10-30-[address] Work Phone: [facility] Start: 10-30-2022 End: 10-30-2022 Nutrition therapy Dominique Gray RD Work Phone: Nutrition Therapy Comment on above: Nutrition Assessment Start: 10-24-2022 Telephone encounter Denita rushing RN Work Phone: Hematology/Oncology Comment on above: Care Coordination (C 1D1 Post Treatment Call) Start: 10-22-2022 Telephone encounter Denita rushing RN Work Phone: Hematology/Oncology Comment on above: Care Coordination (N utrition Consult) Start: 10-21-2022 End: 10-21-2022 ambulatory Chair Dee Mendez Work Phone: Hematology/Oncology Comment on above: Malignant neoplasm o f upper lobe of left lung (HCC) (Primary Dx) 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); Cancer related pain Start: 10-21-2022 End: 10-21-2022 Patient encounter procedure Jyoti Limon MD Work Phone: [facility] Comment on above: Malignant neoplasm o f unspecified part of unspecified bronchus or lung (HCC) (Primary Dx) Start: 10-21-2022 Radiation Oncology Note G Vik Limon MD Work Phone: Radiation Oncology Comment on above: Simulation Note Treatment Planning Start: 10-18-2022 Telephone encounter Nina cutler MD Work Phone: Hematology/Oncology Comment on above: Lab Orders Start: 10-17-2022 Telephone encounter Denita rushing RN Work Phone: Hematology/Oncology Comment on above: Care Coordination (P ain) Start: 10-15-2022 Telephone encounter Nina cutler MD Work Phone: Radiology Comment on above: Biopsy Request Start: 10-15-2022 End: 10-15-2022 ambulatory Nina Grigsby MD Work Phone: Hematology/Oncology Comment on above: Malignant neoplasm o f upper lobe of left lung (HCC) (Primary Dx); Abnormal CT of the chest; Lung nodules; Centrilobular emphysema (HCC) Start: 10-15-2022 End: 10-15-2022 Patient encounter procedure Nina Grigsby MD Work Phone: [employer] Start: 10-10-2022 End: 10-10-2022 ambulatory LOVE ALBERTS Facility: Start: 09-23-2022 End: 09-23-2022 ambulatory Nina Grigsby MD Work Phone: Hematology/Oncology Comment on above: Malignant neoplasm o f upper lobe of left lung (HCC) (Primary Dx); Lung nodules; Centrilobular emphysema (HCC) Start: 09-23-2022 End: 09-23-2022 Patient encounter procedure Nina Grigsby MD Work Phone: [facility] Start: 09-20-2022 End: 09-20-2022 ambulatory [facility] Start: 09-19-2022 End: 09-20-[address] JONATHAN CHANEY Facility:[facility] Start: 09-18-2022 End: 09-18-2022 ambulatory [facility] Start: 09-11-2022 Telephone encounter Denita rushing RN Work Phone: Hematology/Oncology Comment on above: Care Coordination (R espiratory Symptoms) Start: 08-20-2022 End: 08-20-2022 ambulatory Nina Grigsby MD Work Phone: Hematology/Oncology Comment on above: Malignant neoplasm o f upper lobe of left lung (HCC) (Primary Dx); Centrilobular emphysema (HCC) Start: 08-20-2022 End: 08-20-2022 Patient encounter procedure Nina Grigsby MD Work Phone: [facility] Start: 06-25-2022 End: 06-25-2022 ambulatory Patricia Miller PLANOGRAPH OPERATOR.SOLAR PANEL TECHNICIAN Work Phone: Hematology/Oncology Comment on above: Malignant neoplasm o f upper lobe of left lung (HCC) (Primary Dx); Anemia due to antineoplastic chemotherapy Start: 06-25-2022 End: 06-25-2022 Patient encounter procedure Patricia Miller APRN.SOLAR PANEL TECHNICIAN Work Phone: [facility] Comment on above: Thyroid cancer (HCC) (Primary [...] Medicine Comment on above: Follow Up Missed Duong ointment Start: 05-23-2022 End: 05-24-[address] BRANDON HENRY Facility:[facility] Start: 05-13-2022 Telephone encounter Radha Palmer PA-C Work Phone: Pulmonary Medicine Comment on above: Appointment Confirma tion (Confirmed/) Start: 05-01-2022 Patient encounter procedure Jyoti Erasto Limon MD Work Phone: [facility] Start: 05-01-2022 Radiation Oncology Note G Vik Limon MD Work Phone: Radiation Oncology Comment on above: Completion Note Start: 05-01-2022 End: 05-02-[address] CHRISTINA AZUL . Facility:[facility] Start: 04-29-2022 Refill Verito Whelan MD Work Phone: Radiation Oncology Comment on above: Refill Request Medication Problem Start: 04-22-2022 End: 04-22-2022 Patient encounter procedure Jyoti Limon MD Work Phone: Radiation Oncology Comment on above: Malignant neoplasm o f upper lobe of left lung (HCC) (Primary Dx) Start: 04-17-2022 Telephone encounter Patricia davidson APRN.CNP Work Phone: Hematology/Oncology Comment on [...] 04-03-[address] Work Phone: [facility] Start: 04-03-2022 End: 04-03-2022 Nutrition therapy Dominique [...] 03-22-2022 End: 03-23-[address] BRANDON HENRY Facility: Start: 03-19-2022 End: 03-19-2022 ambulatory Patricia Miller APRN.SOLAR PANEL TECHNICIAN Work Phone: Hematology/Oncology Comment on above: Malignant neoplasm o f upper lobe of left lung (HCC) (Primary Dx); Anemia due to antineoplastic chemotherapy; Skin infection; Rash Start: 03-19-2022 End: 03-19-2022 Patient encounter procedure Patricia Miller APRN.SOLAR PANEL TECHNICIAN Work Phone: JO[facility] Start: 03-14-2022 End: 03-14-2022 Patient encounter procedure Jyoti Limon MD Work Phone: [facility] Comment on above: Malignant neoplasm o f upper lobe of left lung (HCC) (Primary Dx) Start: 03-14-2022 Radiation Oncology Note Jyoti Limon MD Work Phone: Radiation Oncology Comment on above: Simulation Note Treatment Planning Start: 02-27-2022 End: 02-27-2022 Departed Referred AMRITA Swann Work Phone: [facility] [place] Start: 02-26-2022 Telephone encounter Denita rushing RN Work Phone: Hematology/Oncology Comment on above: Care Coordination (R shankar) Start: 02-22-2022 Refill Verito Whelan MD Work Phone: Pulmonary Medicine Comment on above: Refill Request Start: 02-20-2022 End: 02-20-2022 ambulatory Patricia Miller APRN.SOLAR PANEL TECHNICIAN Work Phone: Hematology/Oncology Comment on above: Malignant neoplasm o f upper lobe of left lung (HCC) (Primary Dx); Anemia due to antineoplastic chemotherapy; Acute kidney injury (HCC); Skin infection Start: 02-20-2022 End: 02-20-2022 Patient encounter procedure Patricia Miller APRN.SOLAR PANEL TECHNICIAN Work Phone: JOSE Start: 02-11-2022 Telephone encounter Denita rushing RN Work Phone: Hematology/Oncology Comment on above: Care Coordination (R shankar) Start: 02-08-2022 Patient encounter procedure [facility] Provider [facility] Department Start: 02-08-2022 End: 02-08-[address] PATRICIA MILLER Facility:[facility]1 Start: 02-07-2022 End: 02-08-[address] PATRICIA MILLER Facility:[facility] Start: 02-07-2022 End: 02-07-2022 ambulatory Patricia Miller APRN.SOLAR PANEL TECHNICIAN Work Phone: Hematology/Oncology Comment on above: Malignant neoplasm o f upper lobe of left lung (HCC) (Primary Dx); Anemia due to antineoplastic chemotherapy; Acute kidney injury (HCC); Skin infection Start: 02-07-2022 End: 02-07-2022 Patient encounter procedure Patricia Miller APRN.SOLAR PANEL TECHNICIAN Work Phone: [facility] Start: 02-07-2022 Telephone encounter Patricia davidson APRN.SOLAR PANEL TECHNICIAN Work Phone: [facility] Comment on above: Transfusion Start: 01-30-2022 End: 01-30-2022 Patient encounter procedure Jyoti Limon MD Work Phone: Radiation Oncology Comment on above: Malignant neoplasm o f upper lobe of left lung (HCC) (Primary Dx) Start: 01-30-2022 ambulatory Merissa Fam RN Hematol ogy/Oncology Comment on above: Patient Education Start: 01-30-2022 Telephone encounter Patricia davidson APRN.CNP Work Phone: Hematology/Oncology Comment on above: Lab Orders Start: 01-29-2022 End: 01-29-2022 ambulatory Pulm Fct Lab Main 11 Other Phone: Pulmonary Medicine Comment on above: Spirometry Start: 01-29-2022 End: 01-29-2022 Patient encounter procedure Pulm Fct Lab Main 11 Other Phone: [facility] Comment on above: Chronic obstructive pulmonary disease, unspecified COPD type (HCC); Malignant neoplasm of upper lobe of left lung (HCC); PAD (peripheral artery disease) (HCC) Start: 01-29-2022 End: 01-29-2022 Subsequent hospital visit by physician Xr Chest Main A21 Radiology Comment on above: Malignant neoplasm o f upper lobe of left lung (HCC) [C34.12] Start: 01-22-2022 End: 01-22-2022 ambulatory Nina Grigsby MD Work Phone: Hematology/Oncology Comment on above: Malignant neoplasm o f upper lobe of left lung (HCC) (Primary Dx); Anemia due to antineoplastic chemotherapy Start: 01-22-2022 End: 01-22-2022 Patient encounter procedure Nina Grigsby MD Work Phone: [employer] Start: 01-14-2022 Telephone encounter Nina cutler MD Work Phone: Hematology/Oncology Comment on above: Lab Orders Start: 01-14-2022 End: 01-14-2022 ambulatory Nina Grigsby MD Work Phone: Hematology/Oncology Comment on above: Malignant neoplasm o f upper lobe of left lung (HCC) (Primary Dx); Anemia due to antineoplastic chemotherapy; Skin infection Start: 01-14-2022 End: 01-14-2022 Patient encounter procedure Nina Grigsby MD Work Phone: [employer] Start: 01-09-2022 Telephone encounter Nina cutler MD Work Phone: Hematology/Oncology Comment on above: Lab Orders Start: 12-24-2021 Telephone encounter Nina cutler MD Work Phone: Hematology/Oncology Comment on above: Results (hypokalemia ) Start: 12-24-2021 End: 12-24-2021 ambulatory Chair 13 Jose Work Phone: Hematology/Oncology Comment on above: Malignant neoplasm o f upper lobe of left lung (HCC) (Primary Dx) Malignant neoplasm o f upper lobe of left lung (HCC) (Primary Dx); Acute kidney injury (HCC); Anemia due to antineoplastic chemotherapy Start: 12-24-2021 End: 12-24-2021 Patient encounter procedure Nina Grigsby MD Work Phone: [facility] Start: 12-13-2021 Telephone encounter Verito rodriguez MD [...] Start: 12-03-2021 End: 12-03-2021 Patient encounter procedure Yusef Pandya PA-C Work Phone: [facility] Start: 11-30-2021 Telephone encounter Patricia davidson APRN.CNP Work Phone: [facility] Comment on above: Future Appointment Lab Orders Start: 11-30-2021 End: 11-30-2021 ambulatory Patricia Miller APRN.SOLAR PANEL TECHNICIAN Work Phone: Hematology/Oncology Comment on above: Malignant neoplasm o f upper lobe of left lung (HCC) (Primary Dx); Acute kidney injury (HCC) Malignant neoplasm o f upper lobe of left lung (HCC) (Primary Dx) Start: 11-30-2021 End: 11-30-2021 Patient encounter procedure Patricia Miller APRN.SOLAR PANEL TECHNICIAN Work Phone: JOSE Start: 11-29-2021 Telephone encounter Denita rushing RN Work Phone: Hematology/Oncology Comment on above: Care Coordination (L ow Blood Pressure) Start: 11-26-2021 End: 11-26-2021 ambulatory Nina Grigsby MD Work Phone: Hematology/Oncology Comment on above: Malignant neoplasm o f upper lobe of left lung (HCC) (Primary Dx); Acute kidney injury (HCC) Start: 11-26-2021 End: 11-26-2021 Patient encounter procedure Nina Grigsby MD Work Phone: [facility] Start: 11-21-2021 End: 11-21-2021 ambulatory Chair 21 Jose Work Phone: Hematology/Oncology Comment on above: Malignant neoplasm o f upper lobe of left lung (HCC) (Primary Dx); Acute kidney injury (HCC) Start: 11-19-2021 Telephone encounter Denita ruhsing RN Work Phone: Hematology/Oncology Comment on above: Care Coordination (D ischarge Follow Up Call) Care Coordination (H ypotension) Patient Update; Bloo d Pressure Start: 11-19-2021 End: 11-19-2021 ambulatory Chair 21 Jose Work Phone: Hematology/Oncology Comment on above: Malignant neoplasm o f upper lobe of left lung (HCC) (Primary Dx); Acute kidney injury (HCC) Start: 11-16-2021 End: 11-18-[address] YUNIOR DOMINGUEZ Facility: Start: 11-16-2021 Telephone encounter Denita rushing RN Work Phone: Hematology/Oncology Comment on above: Care Coordination (B MP Results) Care Coordination (H ypertension) Start: 11-16-2021 End: 11-16-2021 ambulatory Chair Bee Mendez Work Phone: Hematology/Oncology Comment on above: Acute kidney injury (HCC) (Primary Dx); Malignant neoplasm of upper lobe of left lung (HCC) Start: 11-15-2021 End: 11-15-2021 ambulatory Chair Bee Mendez Work Phone: Hematology/Oncology Comment on above: Malignant neoplasm o f upper lobe of left lung (HCC) (Primary Dx) Start: 11-14-2021 Telephone encounter Denita rushing RN Work Phone: Hematology/Oncology Comment on above: Care Coordination (L ab Results) Start: 11-13-2021 End: 11-13-2021 ambulatory Chair Bee Mendez Work Phone: Hematology/Oncology Comment on above: Malignant neoplasm o f upper lobe of left lung (HCC) (Primary Dx) Start: 11-12-2021 End: 11-12-2021 ambulatory Chair Bee Mendez Work Phone: Hematology/Oncology Comment on above: Malignant neoplasm o f upper lobe of left lung (HCC) (Primary Dx) Start: 11-12-2021 Telephone encounter Denita rushing RN Work Phone: Hematology/Oncology Comment on above: Care Coordination (L ab ) Start: 11-09-2021 Telephone encounter Denita rushing RN Work Phone: Hematology/Oncology Comment on above: Care Coordination (C 1D1 Post Treatment Call) Start: 11-05-2021 End: 11-05-2021 ambulatory Patricia Miller APRN.SOLAR PANEL TECHNICIAN Work Phone: Hematology/Oncology Comment on above: Malignant neoplasm o f upper lobe of left lung (HCC) (Primary Dx) Start: 11-05-2021 End: 11-05-2021 Patient encounter procedure Patricia Miller APRN.SOLAR PANEL TECHNICIAN Work Phone: [facility] Start: 10-31-2021 Patient encounter procedure [facility] Provider [facility] Department Start: 10-31-2021 End: 10-31-2021 Subsequent hospital visit by physician Jenelle [facility]woa (I-Stat/1.5t) Radiology Comment on above: Malignant neoplasm o f upper lobe of left lung (HCC) [C34.12] Start: 10-30-2021 Telephone encounter Denita rushing RN Work Phone: Hematology/Oncology Comment on above: Care Coordination (R esearch Trial) Lab Orders Start: 10-29-2021 ambulatory Katlin Omer [facility] Work Phone: Hematology/Oncology Comment on above: First Time Treatment Education First Time Treatment Education (Pemetrexed, Cisplatin) Start: 10-29-2021 Telephone encounter Denita rushing RN Work Phone: Hematology/Oncology Comment on above: Care Coordination (F olic Acid) Start: 10-29-2021 End: 10-29-2021 Nursing evaluation of patient and report Ma Nurse Kristofer Chang Work Phone: Hematology/Oncology Comment on above: [...] Start: 10-24-2021 End: 10-25-2021 Patient encounter procedure G Erasto Limon MD Work Phone: Radiation Oncology Comment [...] procedure Renetta Ponce MD Work Phone: [facility] Start: 10-11-2021 End: 10-11-2021 Patient encounter procedure Aracelis Carrillo APRUriahSOLAR PANEL TECHNICIAN Work Phone: Thoracic Clinic Comment on above: [...] End: 02-24-2019 Patient encounter procedure PROVIDER UNKNOWN Facility:[facility] Procedures Date Procedure Procedure Detail Performing Clinician Start: 03-19-2024 CT of head without contrast Start: 03-19-2024 Plain chest X-ray Start: 03-09-[address] atten uation skull base mid-thigh Yusef Pandya PA-C Work Phone: Start: 03-09-2024 Gluc bld gluc mntr d ev cleared fda spec home use [facility] Provider Start: 02-07-2024 Plain chest X-ray Start: 01-03-2023 CT angiography of thorax MD Christina Azul Work Phone: Start: 01-03-2023 Plain chest X-ray MD Nawaf Azul Work Phone: Start: 11-11-2022 HEPATIC FUNCTION PNL Br burton Grigsby MD Work Phone: Start: 11-11-2022 Lactate dehydrogenase ldh Nina Grigsby MD Work Phone: Start: 06-11-2022 Radiologic exam ches t 2 views G Erasto Limon MD Work Phone: Start: 03-19-2022 Adult depression scr eening assessment Patricia Paul PLANOGRAPH OPERATOR.SOLAR PANEL TECHNICIAN Work Phone: Start: 01-29-2022 Brncdilat rspse spmt ry pre&post-brncdilat admn Verito Whelan MD Work Phone: Start: 01-29-2022 Radiologic exam ches t 2 views Aracelis Orimarguerite PLANOGRAPH OPERATOR.SOLAR PANEL TECHNICIAN Work Phone: Start: 12-11-2021 Adult depression scr eening assessment Verito Whelan MD Work Phone: Start: 12-07-2021 PSA screening LOVE MARTINEZ Comment on above: Performed By: #### P SAD #### [facility] [address] [place] [address] Dr. Usama Hobbs Start: 11-21-2021 Basic metabolic pane l calcium total Yusef M Jessica PA-C Work Phone: Start: 11-19-2021 Basic metabolic pane l calcium total Yusef M Jessica PA-C Work Phone: Start: 11-16-2021 Basic metabolic pane l calcium total Yusef M Jessica PA-C Work Phone: Start: 10-31-2021 Mri brain brain stem w/o w/contrast material Renetta Ponce MD Work Phone: Start: 10-11-2021 Radiologic exam ches t 2 views Marianne Fields MD Work Phone: Start: 05-28-[address] attenuation whole body Marianne Fields MD Work Phone: Aerobic microbial culture ASHA Swann Work Phone: Plan of Treatment Date Care Activity Detail Author Start: 10-13-2030 Urine microalbumin profile [facility] Start: 03-18-2027 Diabetes Screening Diabetes Screenin [facility] Start: 02-02-2027 Diabetes Screening Diabetes Screenin g [facility] Start: 12-22-2026 Diabetes Screening Diabetes Screenin g [facility] Start: 12-07-2026 PROSTATE CANCER SCREENING DISCUSSION PROSTATE CANCER SCREENING DISCUSSION [facility] Start: 12-07-2026 Prostate specific antigen measurement Prostate Cancer Screening Discussion [facility] Start: 11-24-2026 Diabetes Screening Diabetes Screenin jyoti [facility] Start: 11-03-2026 Diabetes Screening Diabetes Screenin g [facility] Start: 10-19-2026 Diabetes Screening Diabetes Screenin jyoti [facility] Start: 09-21-2026 Diabetes Screening Diabetes Screenin g [facility] Start: 08-25-2026 Diabetes Screening Diabetes Screenin g [facility] Start: 06-30-2026 Diabetes Screening Diabetes Screenin jyoti [facility] Start: 06-02-2026 Diabetes Screening Diabetes Screenin jyoti [facility] Start: 05-13-2026 Diabetes Screening Diabetes Screenin jyoti [facility] Start: 04-22-2026 Diabetes Screening Diabetes Screenin jyoti [facility] Start: 04-01-2026 Diabetes Screening Diabetes Screenin jyoti [facility] Start: 03-11-2026 DIABETES SCREEN DIABETES SCREEN [facility] Start: 02-18-2026 DIABETES SCREEN DIABETES SCREEN [facility] Start: 01-28-2026 DIABETES SCREEN DIABETES SCREEN [facility] Start: 01-07-2026 DIABETES SCREEN DIABETES SCREEN [facility] Start: 12-27-2025 DIABETES SCREEN DIABETES SCREEN [facility] Start: 12-17-2025 DIABETES SCREEN DIABETES SCREEN [facility] Start: 11-25-2025 DIABETES SCREEN DIABETES SCREEN [facility] Start: 11-18-2025 DIABETES SCREEN DIABETES SCREEN [facility] Start: 11-11-2025 DIABETES SCREEN DIABETES SCREEN [facility] Start: 10-31-2025 DIABETES SCREEN DIABETES SCREEN [facility] Start: 10-21-2025 DIABETES SCREEN DIABETES SCREEN [facility] Start: 09-23-2025 DIABETES SCREEN DIABETES SCREEN [facility] Start: 08-20-2025 DIABETES SCREEN DIABETES SCREEN [facility] Start: 06-25-2025 DIABETES SCREEN DIABETES SCREEN [facility] Start: 04-30-2025 DIABETES SCREEN DIABETES SCREEN [facility] Start: 03-19-2025 DIABETES SCREEN DIABETES SCREEN [facility] Start: 03-15-2025 BP Controlled (<130/80) BP Controlle d (<130/80) [facility] Start: 02-20-2025 DIABETES SCREEN DIABETES SCREEN [facility] Start: 02-07-2025 DIABETES SCREEN DIABETES SCREEN [facility] Start: 02-02-2025 BP Controlled (<130/80) BP Controlle d (<130/80) [facility] Start: 01-22-2025 DIABETES SCREEN DIABETES SCREEN [facility] Start: 01-14-2025 DIABETES SCREEN DIABETES SCREEN [facility] Start: 01-03-2025 DIABETES SCREEN DIABETES SCREEN [facility] Start: 12-24-2024 DIABETES SCREEN DIABETES SCREEN [facility] Start: 12-11-2024 DIABETES SCREEN DIABETES SCREEN [facility] Start: 12-03-2024 DIABETES SCREEN DIABETES SCREEN [facility] Start: 11-30-2024 DIABETES SCREEN DIABETES SCREEN [facility] Start: 11-26-2024 DIABETES SCREEN DIABETES SCREEN [facility] Start: 11-21-2024 DIABETES SCREEN DIABETES SCREEN [facility] Start: 11-19-2024 DIABETES SCREEN DIABETES SCREEN [facility] Start: 11-16-2024 DIABETES SCREEN DIABETES SCREEN [facility] Start: 11-14-2024 DIABETES SCREEN DIABETES SCREEN [facility] Start: 11-12-2024 DIABETES SCREEN DIABETES SCREEN [facility] Start: 11-05-2024 DIABETES SCREEN DIABETES SCREEN [facility] Start: 10-04-2024 DIABETES SCREEN DIABETES SCREEN [facility] Start: 06-30-2024 BP Controlled (<130/80) BP Controlle d (<130/80) [facility] Start: 05-05-2024 End: 05-05-2024 Patient encounter procedure Pulmonary Medicine Comment on above: Centrilobular emphys luke (HCC) [J43.2] Start: 04-20-2024 ambulatory Ambulatory Facility:[facility] Start: 04-14-2024 End: 04-14-2024 Patient encounter procedure 04/14/2024 10:30 AM EDT Office Visit Palliative Medicine [address] [place] [address] [place] [address] Estella Fish, PLANOGRAPH OPERATOR.SOLAR PANEL TECHNICIAN [address] [place] [address] 4 week follow up-in person Palliative Medicine Comment on above: 4 week follow up-in person Start: 04-12-2024 ambulatory Ambulatory Facility:[facility] Start: 03-23-2024 Magnetic resonance angiography of head without contrast MR angio MR brain w/o [facility] Start: 03-21-2024 Covid-19 Vaccine () Covid-19 Vaccine () [facility] Start: 03-21-2024 Influenza vaccination [facility] Start: 03-20-2024 [facility] Start: 03-19-2024 Referral to neurologist [facility] Start: 03-19-2024 Hospital admission [facility] Start: 03-18-2024 Plain chest X-ray XR chest 2V* [facility] Start: 03-18-2024 [facility] Start: 03-18-2024 End: 03-18-2024 Follow-up encounter 03/18/2024 1:30 PM EDT Visit (SP) Office Hematology/Oncology [address] [facility] [place] [address] Nina Grigsby MD [address] [facility] [place] [address] 6 week follow up Hematology/Oncology Comment on above: 6 week follow up Start: 03-18-2024 End: 03-18-2024 Patient encounter procedure [facility] Comment on above: 6 week follow up PRINT SCHEDULE Start: 03-17-2024 End: 03-17-2024 Patient encounter procedure 03/17/2024 10:30 AM EDT Office Visit Palliative Medicine [address] [facility] [address] Estella Fish, PLANOGRAPH OPERATOR.SOLAR PANEL TECHNICIAN [address] [place] [address] 3 month follow up Palliative Medicine Comment on above: 3 month follow up Start: 03-15-2024 End: 03-15-2024 Patient encounter procedure 03/15/2024 1:00 PM EDT Office Visit Pulmonary Medicine [address] [place] [address] [place] [address] [place] [address] *jose called and requested appointment Pulmonary Medicine Comment on above: *jose called and requested appointment Start: 03-09-2024 End: 03-09-2024 Patient encounter procedure 03/09/2024 9:00 AM EDT Appointment Radiology Pet CT [address] [facility] [place] [address] Comment on above: PET Start: 02-27-2024 End: 02-27-2024 Patient encounter procedure 02/27/2024 10:30 AM EDT Office Visit Palliative Medicine [address] 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 Expected: 02/03/2024, Expires: 05/04/2024 [facility] Comment on above: Expected: 02/03/2024 , Expires: 05/04/2024 Start: 02-03-2024 End: 05-04-2024 Comprehensive metabolic 2000 panel - Serum or Plasma COMPREHENSIVE METABOLIC PANEL Lab Routine 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 Expected: 02/03/2024, Expires: 05/04/2024 [facility] Work Phone: Comment on above: Expected: 02/03/2024 , Expires: 05/04/2024 Start: 02-03-2024 End: 05-04-2024 Thyrotropin [Units/volume] in Serum or Plasma THYROID STIMULATING HORMONE Lab Routine 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 [place] [address] Yusef Pandya PA-C [address] [facility] [place] [address] 6 week follow up Hematology/Oncology Comment on above: 6 week follow up Start: 02-03-2024 End: 02-03-2024 Patient encounter procedure 02/03/2024 11:15 AM EDT Office Visit [facility] [address] 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) Expected: 01/27/2024, Expires: 04/27/2024 [facility] Comment on above: Expected: 01/27/2024 , Expires: 04/27/2024 Start: 01-27-2024 End: 04-27-2024 Comprehensive metabolic 2000 panel - Serum or Plasma COMPREHENSIVE METABOLIC PANEL Lab Routine 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 [place] [address] Yunior Thacker LMT [address] [facility] [place] [address] Massage pt in the lobby Hematology/Oncology Comment on above: Massage pt in the lobby Start: 12-24-2023 End: 12-24-2023 Patient encounter procedure Radiation Oncology Comment on above: Chest wall Chest wall- do compl etion tasks for both areas Start: 12-23-2023 End: 12-23-2023 Follow-up encounter 12/23/2023 2:45 PM EDT Visit (SP) Office Hematology/Oncology [address] [place] [address] Nina Grigsby MD [address] [facility] [place] [address] 3 week follow up after Dr. Fay garces and XRT Hematology/Oncology Comment on above: 3 week follow up aft er Dr. Fay garces and XRT Start: 12-23-2023 End: 12-23-2023 Patient encounter procedure [facility] Comment on above: 3 week follow up aft er Dr. Limon consult and XRT Chest wall- grigsby\T \ labs 2:30 Start: 12-23-2023 End: 12-23-2023 Patient encounter procedure 12/23/2023 10:15 AM EDT Appointment Radiation Oncology [address] [facility] [place] [address] Chest wall Radiation Oncology Comment on above: Chest wall Start: 12-22-2023 End: 12-22-2023 Patient encounter procedure Radiation Oncology Comment on above: Chest wall Location: [facility] Start: 12-19-2023 End: 12-19-2023 Patient encounter procedure 12/19/2023 10:45 AM EDT Appointment Radiation Oncology [address] [place] [address] Chest wall Radiation Oncology Comment on above: Chest wall Start: 12-18-2023 BP CONTROLLED (<130/80) BP CONTROLLE D (<130/80) [facility] Start: 12-18-2023 End: 12-18-2023 Patient encounter procedure 12/18/2023 2:00 PM EDT Appointment Radiation Oncology [address] [place] [address] Chest wall Radiation Oncology Comment on above: Chest wall Start: 12-17-2023 End: 12-17-2023 Patient encounter procedure 12/17/2023 12:15 PM EDT Appointment Radiation Oncology [address] [place] [address] Neck and Chest wall Radiation Oncology Comment [...] BP CONTROLLED (<130/80) BP CONTROLLE D (<130/80) [facility] Start: 11-25-2023 End: 02-24-2024 CBC W Auto Differential panel - Blood COMPLETE BLOOD COUNT AND DIFFERENTIAL Lab Routine Malignant neoplasm of upper lobe of left lung (HCC) Expected: 11/25/2023 (Approximate), Expires: 02/24/2024 [facility] Work Phone: Comment on above: Expected: 11/25/2023 (Approximate), Expires: 02/24/2024 Start: 11-25-2023 End: 02-24-2024 Comprehensive metabolic 2000 panel - Serum or Plasma COMPREHENSIVE METABOLIC PANEL Lab Routine Malignant neoplasm of upper lobe of left lung (HCC) Expected: 11/25/2023 (Approximate), Expires: 02/24/2024 [facility] Comment on above: Expected: 11/25/2023 (Approximate), Expires: 02/24/2024 Start: 11-25-2023 End: 02-24-2024 Thyrotropin [Units/volume] in Serum or Plasma THYROID STIMULATING HORMONE Lab Routine Malignant neoplasm of upper lobe of left lung (HCC) Expected: 11/25/2023 (Approximate), Expires: 02/24/2024 [facility] Comment on above: Expected: 11/25/2023 (Approximate), Expires: 02/24/2024 Start: 11-25-2023 End: 11-25-2023 Patient encounter procedure 11/25/2023 10:45 AM EDT Appointment Radiology Pet CT [address] [place] [address] Comment on above: PET Start: 11-21-2023 End: 11-21-2023 Patient encounter procedure 11/21/2023 10:00 AM EDT Office Visit Palliative Medicine [address] [place] [address] Estella Fish, PLANOGRAPH OPERATOR.SOLAR PANEL TECHNICIAN [address] [place] [address] 3 month follow up Palliative Medicine Comment on above: 3 month follow up Start: 11-19-2023 BP CONTROLLED (<130/80) BP CONTROLLE D (<130/80) [facility] Start: 11-01-2023 BP CONTROLLED (<130/80) BP CONTROLLE D (<130/80) [facility] Start: 10-29-2023 BP CONTROLLED (<130/80) BP CONTROLLE D (<130/80) [facility] Start: 10-22-2023 BP CONTROLLED (<130/80) BP CONTROLLE D (<130/80) [facility] Start: 09-24-2023 BP CONTROLLED (<130/80) BP CONTROLLE D (<130/80) [facility] Start: 08-25-2023 End: 11-24-2023 T4/FTI/T4U [facility] Work Phone: Comment on above: Expected: 08/25/2023 , Expires: 11/24/2023 Start: 08-25-2023 End: 11-24-2023 Thyrotropin [Units/volume] in Serum or Plasma [facility] Work Phone: Comment on above: Expected: 08/25/2023 , Expires: 11/24/2023 Start: 08-20-2023 BP CONTROLLED (<130/80) BP CONTROLLE D (<130/80) [facility] Start: 07-21-2023 Advance Directive Discussion Advance Directive Discussion [facility] Start: 07-21-2023 Behavioral Health Screening Behavioral Health Screening [facility] Start: 07-21-2023 Depression Assessment Depression Ass essment [facility] Start: 07-01-2023 End: 09-30-2023 CBC W Auto Differential panel - Blood CBC + DIFF Lab Routine Malignant neoplasm of upper lobe of left lung (HCC) Centrilobular emphysema (HCC) CAD in [place] artery PVD (peripheral vascular disease) (HCC) Cancer related pain Tonsillar mass Abnormal LFTs Anxiety Hypothyroidism due to medication Expected: 07/01/2023, Expires: 09/30/2023 [facility] Work Phone: Comment on above: Expected: 07/01/2023 , Expires: 09/30/2023 Start: 07-01-2023 End: 09-30-2023 Comprehensive metabolic 2000 panel - Serum or Plasma COMP METABOLIC PANEL Lab Routine Malignant neoplasm of upper lobe of left lung (HCC) Centrilobular emphysema (HCC) CAD in [place] artery PVD (peripheral vascular disease) (HCC) Cancer related pain Tonsillar mass Abnormal LFTs Anxiety Hypothyroidism due to medication Expected: 07/01/2023, Expires: 09/30/2023 [facility] Work Phone: Comment on above: Expected: 07/01/2023 , Expires: 09/30/2023 Start: 07-01-2023 End: 09-30-2023 Thyrotropin [Units/volume] in Serum or Plasma TSH BLD Lab Routine Malignant neoplasm of upper lobe of left lung (HCC) Centrilobular emphysema (HCC) CAD in [place] artery PVD (peripheral vascular disease) (HCC) Cancer related pain Tonsillar mass Abnormal LFTs Anxiety Hypothyroidism due to medication Expected: 07/01/2023, Expires: 09/30/2023 [facility] Work Phone: Comment on above: Expected: 07/01/2023 , Expires: 09/30/2023 Start: 06-13-2023 End: 09-12-2023 TOX SCREEN ROUT UR TOX SCREEN ROUT UR Lab Routine Opioid contract exists Expected: 06/13/2023, Expires: 09/12/2023 [facility] Work Phone: Comment on above: Expected: 06/13/2023 , Expires: 09/12/2023 Start: 06-11-2023 BP CONTROLLED (<130/80) BP CONTROLLE D (<130/80) [facility] Start: 06-02-2023 End: 09-01-2023 CBC W Auto Differential panel - Blood CBC + DIFF Lab Routine Malignant neoplasm of upper lobe of left lung (HCC) Expected: 06/02/2023, Expires: 09/01/2023 [facility] Work Phone: Comment on above: Expected: 06/02/2023 , Expires: 09/01/2023 Start: 04-22-2023 End: 06-22-2023 CBC W Auto Differential panel - Blood CBC + DIFF Lab Routine 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) Cancer related pain Abnormal LFTs Anxiety Centrilobular emphysema (HCC) PVD (peripheral vascular disease) (HCC) Anemia due to antineoplastic chemotherapy Skin rash Expected: 04/22/2023, Expires: 06/22/2023 [facility] Work Phone: Comment on above: Expected: 04/22/2023 , Expires: 06/22/2023 Start: 04-22-2023 End: 06-22-2023 Comprehensive metabolic 2000 panel - Serum or Plasma COMP METABOLIC PANEL Lab Routine 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) Cancer related pain Abnormal LFTs Anxiety Centrilobular emphysema (HCC) PVD (peripheral vascular disease) (HCC) Anemia due to antineoplastic chemotherapy Skin rash Expected: 04/22/2023, Expires: 06/22/2023 [facility] Work Phone: Comment on above: Expected: 04/22/2023 , Expires: 06/22/2023 Start: 04-22-2023 End: 06-22-2023 Thyrotropin [Units/volume] in Serum or Plasma TSH BLD Lab Routine 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) Cancer related pain Abnormal LFTs Anxiety Centrilobular emphysema (HCC) PVD (peripheral vascular disease) (HCC) Anemia due to antineoplastic chemotherapy Skin rash Expected: 04/22/2023, Expires: 06/22/2023 [facility] Work Phone: Comment on above: Expected: 04/22/2023 , Expires: 06/22/2023 Start: 03-26-2023 BP CONTROLLED (<130/80) BP CONTROLLE D (<130/80) [facility] Start: 03-21-2023 Covid-19 Vaccine ( season) Covid-19 Vaccine ( season) [facility] Start: 03-21-2023 Influenza vaccination [facility] Start: 03-19-2023 Adult depression screening assessment DEPRESSION SCREENING [facility] Start: 03-19-2023 BP CONTROLLED (<130/80) BP CONTROLLE D (<130/80) [facility] Start: 03-11-2023 End: 05-11-2023 T4/FTI/T4U [facility] Work Phone: Comment on above: Expected: 03/11/2023 , Expires: 05/11/2023 Start: 03-11-2023 End: 05-11-2023 Thyrotropin [Units/volume] in Serum or Plasma [facility] Work Phone: Comment on above: Expected: 03/11/2023 , Expires: 05/11/2023 Start: 02-20-2023 BP CONTROLLED (<130/80) BP CONTROLLE D (<130/80) [facility] Start: 02-08-2023 COLORECTAL CANCER SCREENING COLORECTAL CANCER SCREENING [facility] Start: 02-08-2023 FECAL OCCULT BLOOD FECAL OCCULT BLOO D [facility] Start: 02-08-2023 Screening for malign ant neoplasm of colon [facility] Start: 02-07-2023 BP CONTROLLED (<130/80) BP CONTROLLE D (<130/80) [facility] Start: 01-30-2023 BP CONTROLLED (<130/80) BP CONTROLLE D (<130/80) [facility] Start: 01-22-2023 BP CONTROLLED (<130/80) BP CONTROLLE D (<130/80) [facility] Start: 01-14-2023 BP CONTROLLED (<130/80) BP CONTROLLE D (<130/80) [facility] Start: 01-07-2023 End: 03-09-2023 Thyrotropin [Units/volume] in Serum or Plasma [facility] Work Phone: Comment on above: Expected: 01/07/2023 , Expires: 03/09/2023 Start: 12-27-2022 End: 02-26-2023 Comprehensive metabolic 2000 panel - Serum or Plasma COMP METABOLIC PANEL Lab Routine 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) Abnormal LFTs Expected: 12/27/2022 (Approximate), Expires: 02/26/2023 [facility] Work Phone: Comment on above: Expected: 12/27/2022 (Approximate), Expires: 02/26/2023 Start: 12-24-2022 BP CONTROLLED (<130/80) BP CONTROLLE D (<130/80) [facility] Start: 12-16-2022 End: 02-15-2023 CBC W Auto Differential panel - Blood CBC + DIFF Lab Routine Malignant neoplasm of upper lobe of left lung (HCC) Centrilobular emphysema (HCC) Abnormal LFTs Cancer related pain PVD (peripheral vascular disease) (HCC) Malaise and fatigue Expected: 12/16/2022, Expires: 02/15/2023 [facility] Work Phone: Comment on above: Expected: 12/16/2022 , Expires: 02/15/2023 Start: 12-16-2022 End: 02-15-2023 Comprehensive metabolic 2000 panel - Serum or Plasma COMP METABOLIC PANEL Lab Routine Malignant neoplasm of upper lobe of left lung (HCC) Centrilobular emphysema (HCC) Abnormal LFTs Cancer related pain PVD (peripheral vascular disease) (HCC) Malaise and fatigue Expected: 12/16/2022, Expires: 02/15/2023 [facility] Work Phone: Comment on above: Expected: 12/16/2022 , Expires: 02/15/2023 Start: 12-16-2022 End: 02-15-2023 Thyrotropin [Units/volume] in Serum or Plasma TSH BLD Lab Routine Malignant neoplasm of upper lobe of left lung (HCC) Centrilobular emphysema (HCC) Abnormal LFTs Cancer related pain PVD (peripheral vascular disease) (HCC) Malaise and fatigue Expected: 12/16/2022, Expires: 02/15/2023 [facility] Work Phone: Comment on above: Expected: 12/16/2022 , Expires: 02/15/2023 Start: 12-11-2022 Adult depression screening assessment DEPRESSION SCREENING [facility] Start: 12-11-2022 BP CONTROLLED (<130/80) BP CONTROLLE D (<130/80) [facility] Start: 12-09-2022 End: 02-08-2023 CBC W Auto Differential panel - Blood CBC + DIFF Lab Routine Malignant neoplasm of upper lobe of left lung (HCC) Centrilobular emphysema (HCC) Abnormal LFTs Cancer related pain PVD (peripheral vascular disease) (HCC) Expected: 12/09/2022, Expires: 02/08/2023 [facility] Work Phone: Comment on above: Expected: 12/09/2022 , Expires: 02/08/2023 Start: 12-09-2022 End: 02-08-2023 Comprehensive metabolic 2000 panel - Serum or Plasma COMP METABOLIC PANEL Lab Routine Malignant neoplasm of upper lobe of left lung (HCC) Centrilobular emphysema (HCC) Abnormal LFTs Cancer related pain PVD (peripheral vascular disease) (HCC) Expected: 12/09/2022, Expires: 02/08/2023 [facility] Work Phone: Comment on above: Expected: 12/09/2022 , Expires: 02/08/2023 Start: 12-03-2022 BP CONTROLLED (<130/80) BP CONTROLLE D (<130/80) [facility] Start: 11-30-2022 BP CONTROLLED (<130/80) BP CONTROLLE D (<130/80) [facility] Start: 11-26-2022 BP CONTROLLED (<130/80) BP CONTROLLE D (<130/80) [facility] Start: 11-25-2022 End: 01-25-2023 CBC W Auto Differential panel - Blood CBC + DIFF Lab Routine 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) Abnormal LFTs Expected: 11/25/2022, Expires: 01/25/2023 [facility] Work Phone: Comment on above: Expected: 11/25/2022 , Expires: 01/25/2023 Start: 11-25-2022 End: 01-25-2023 Comprehensive metabolic 2000 panel - Serum or Plasma COMP METABOLIC PANEL Lab Routine 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) Abnormal LFTs Expected: 11/25/2022, Expires: 01/25/2023 [facility] Work Phone: Comment on above: Expected: 11/25/2022 , Expires: 01/25/2023 Start: 11-25-2022 End: 01-25-2023 Thyrotropin [Units/volume] in Serum or Plasma TSH BLD Lab Routine 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) Abnormal LFTs Malaise and fatigue Expected: 11/25/2022, Expires: 01/25/2023 [facility] Work Phone: Comment on above: Expected: 11/25/2022 , Expires: 01/25/2023 Start: 11-18-2022 End: 01-18-2023 CBC W Auto Differential panel - Blood CBC + DIFF Lab Routine 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) Expected: 11/18/2022, Expires: 01/18/2023 [facility] Work Phone: Comment on above: Expected: 11/18/2022 , Expires: 01/18/2023 Start: 11-18-2022 End: 01-18-2023 Comprehensive metabolic 2000 panel - Serum or Plasma COMP METABOLIC PANEL Lab Routine 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) Expected: 11/18/2022, Expires: 01/18/2023 [facility] Work Phone: Comment on above: Expected: 11/18/2022 , Expires: 01/18/2023 Start: 11-18-2022 End: 01-18-2023 Lactate dehydrogenase [Enzymatic activity/volume] in Serum or Plasma LD LACTATE DEHYDRO Lab Routine 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) Expected: 11/18/2022, Expires: 01/18/2023 [facility] Work Phone: Comment on above: Expected: 11/18/2022 , Expires: 01/18/2023 Start: 11-12-2022 BP CONTROLLED (<130/80) BP CONTROLLE D (<130/80) [facility] Start: 11-05-2022 BP CONTROLLED (<130/80) BP CONTROLLE D (<130/80) [facility] Start: 10-24-2022 BP CONTROLLED (<130/80) BP CONTROLLE D (<130/80) [facility] Start: 10-19-2022 BP CONTROLLED (<130/80) BP CONTROLLE D (<130/80) [facility] Start: 10-15-2022 End: 12-15-2022 MISC SEND OUT TST 1 MISC SEND OUT TST 1 Lab Routine Malignant neoplasm of upper lobe of left lung (HCC) Expected: 10/15/2022, Expires: 12/15/2022 [facility] Work Phone: Comment on above: Expected: 10/15/2022 , Expires: 12/15/2022 Start: 10-11-2022 BP CONTROLLED (<130/80) BP CONTROLLE D (<130/80) [facility] Start: 09-17-2022 End: 11-17-2022 CBC W Auto Differential panel - Blood CBC + DIFF Lab Routine Malignant neoplasm of upper lobe of left lung (HCC) Malaise and fatigue Expected: 09/17/2022 (Approximate), Expires: 11/17/2022 [facility] Work Phone: Comment on above: Expected: 09/17/2022 (Approximate), Expires: 11/17/2022 Start: 09-17-2022 End: 11-17-2022 Comprehensive metabolic 2000 panel - Serum or Plasma COMP METABOLIC PANEL Lab Routine Malignant neoplasm of upper lobe of left lung (HCC) Malaise and fatigue Expected: 09/17/2022 (Approximate), Expires: 11/17/2022 [facility] Work Phone: Comment on above: Expected: 09/17/2022 (Approximate), Expires: 11/17/2022 Start: 09-17-2022 End: 11-17-2022 Lactate dehydrogenase [Enzymatic activity/volume] in Serum or Plasma LD LACTATE DEHYDRO Lab Routine Malignant neoplasm of upper lobe of left lung (HCC) Malaise and fatigue Expected: 09/17/2022 (Approximate), Expires: 11/17/2022 [facility] Work Phone: Comment on above: Expected: 09/17/2022 (Approximate), Expires: 11/17/2022 Start: 09-17-2022 End: 11-17-2022 Thyrotropin [Units/volume] in Serum or Plasma TSH BLD Lab Routine Malignant neoplasm of upper lobe of left lung (HCC) Malaise and fatigue Expected: 09/17/2022 (Approximate), Expires: 11/17/2022 [facility] Work Phone: Comment on above: Expected: 09/17/2022 (Approximate), Expires: 11/17/2022 Start: 08-20-2022 End: 10-20-2022 CBC W Auto Differential panel - Blood CBC + DIFF Lab Routine Malignant neoplasm of upper lobe of left lung (HCC) Anemia due to antineoplastic chemotherapy Expected: 08/20/2022, Expires: 10/20/2022 [facility] Work Phone: Comment on above: Expected: 08/20/2022 , Expires: 10/20/2022 Start: 08-20-2022 End: 10-20-2022 Comprehensive metabolic 2000 panel - Serum or Plasma COMP METABOLIC PANEL Lab Routine Malignant neoplasm of upper lobe of left lung (HCC) Anemia due to antineoplastic chemotherapy Expected: 08/20/2022, Expires: 10/20/2022 [facility] Work Phone: Comment on above: Expected: 08/20/2022 , Expires: 10/20/2022 Start: 07-21-2022 ADVANCE DIRECTIVE DISCUSSION ADVANCE DIRECTIVE DISCUSSION [facility] Start: 07-21-2022 DEPRESSION ASSESSMENT DEPRESSION ASS ESSMENT [facility] Start: 06-25-2022 End: 08-25-2022 THYROGLOBULIN BY MASS SPECTROMETRY THYROGLOBULIN BY MASS SPECTROMETRY Lab Routine Thyroid cancer (HCC) Expected: 06/25/2022, Expires: 08/25/2022 [facility] Work Phone: Comment on above: Expected: 06/25/2022 , Expires: 08/25/2022 Start: 04-18-2022 End: 06-18-2022 CBC W Auto Differential panel - Blood CBC + DIFF Lab Routine Malignant neoplasm of upper lobe of left lung (HCC) Expected: 04/18/2022, Expires: 06/18/2022 [facility] Work Phone: Comment on above: Expected: 04/18/2022 , Expires: 06/18/2022 Start: 04-18-2022 End: 06-18-2022 Comprehensive metabolic 2000 panel - Serum or Plasma COMP METABOLIC PANEL Lab Routine Malignant neoplasm of upper lobe of left lung (HCC) Expected: 04/18/2022, Expires: 06/18/2022 [facility] Work Phone: Comment on above: Expected: 04/18/2022 , Expires: 06/18/2022 Start: 03-21-2022 Influenza vaccination C [facility] Start: 02-22-2022 End: 04-24-2022 CBC W Auto Differential panel - Blood [facility] Work Phone: Comment on above: Expected: 02/22/2022 , Expires: 04/24/2022 Start: 02-22-2022 End: 04-24-2022 Comprehensive metabolic 2000 panel - Serum or Plasma [facility] Work Phone: Comment on above: Expected: 02/22/2022 , Expires: 04/24/2022 Start: 02-15-2022 End: 04-17-2022 CBC W Auto Differential panel - Blood CBC + DIFF Lab Routine Malignant neoplasm of upper lobe of left lung (HCC) Expected: 02/15/2022, Expires: 04/17/2022 [facility] Work Phone: Comment on above: Expected: 02/15/2022 , Expires: 04/17/2022 Start: 2022 ADVANCE DIRECTIVE DISCUSSION ADVANCE DIRECTIVE DISCUSSION [facility] Start: 02-07-2022 End: 04-09-2022 Iron and Iron binding capacity panel - Serum or Plasma [facility] Work Phone: Comment on above: Expected: 02/07/2022 , Expires: 04/09/2022 Start: 02-05-2022 End: 04-07-2022 CBC W Auto Differential panel - Blood CBC + DIFF Lab Routine Malignant neoplasm of upper lobe of left lung (HCC) Expected: 02/05/2022, Expires: 04/07/2022 [facility] Work Phone: Comment on above: Expected: 02/05/2022 , Expires: 04/07/2022 Start: 02-05-2022 End: 04-07-2022 Comprehensive metabolic 2000 panel - Serum or Plasma COMP METABOLIC PANEL Lab Routine Malignant neoplasm of upper lobe of left lung (HCC) Expected: 02/05/2022, Expires: 04/07/2022 [facility] Work Phone: Comment on above: Expected: 02/05/2022 , Expires: 04/07/2022 Start: 02-05-2022 End: 04-07-2022 Magnesium [Mass/volume] in Serum or Plasma MAGNESIUM BLD Lab Routine Malignant neoplasm of upper lobe of left lung (HCC) Expected: 02/05/2022, Expires: 04/07/2022 [facility] Work Phone: Comment on above: Expected: 02/05/2022 , Expires: 04/07/2022 Start: 01-22-2022 End: 03-24-2022 CBC W Auto Differential panel - Blood CBC + DIFF Lab Routine Malignant neoplasm of upper lobe of left lung (HCC) Expected: 01/22/2022, Expires: 03/24/2022 [facility] Work Phone: Comment on above: Expected: 01/22/2022 , Expires: 03/24/2022 Start: 01-22-2022 End: 03-24-2022 Comprehensive metabolic 2000 panel - Serum or Plasma COMP METABOLIC PANEL Lab Routine Malignant neoplasm of upper lobe of left lung (HCC) Expected: 01/22/2022, Expires: 03/24/2022 [facility] Work Phone: Comment on above: Expected: 01/22/2022 , Expires: 03/24/2022 Start: 01-10-2022 End: 03-12-2022 CBC W Auto Differential panel - Blood CBC + DIFF Lab Routine Malignant neoplasm of upper lobe of left lung (HCC) Expected: 01/10/2022, Expires: 03/12/2022 [facility] Work Phone: Comment on above: Expected: 01/10/2022 , Expires: 03/12/2022 Start: 01-10-2022 End: 03-12-2022 Comprehensive metabolic 2000 panel - Serum or Plasma COMP METABOLIC PANEL Lab Routine Malignant neoplasm of upper lobe of left lung (HCC) Expected: 01/10/2022, Expires: 03/12/2022 [facility] Work Phone: Comment on above: Expected: 01/10/2022 , Expires: 03/12/2022 Start: 01-10-2022 End: 03-12-2022 Magnesium [Mass/volume] in Serum or Plasma MAGNESIUM BLD Lab Routine Malignant neoplasm of upper lobe of left lung (HCC) Expected: 01/10/2022, Expires: 03/12/2022 [facility] Work Phone: Comment on above: Expected: 01/10/2022 , Expires: 03/12/2022 Start: 01-03-2022 End: 03-05-2022 CBC W Auto Differential panel - Blood CBC + DIFF Lab Routine Malignant neoplasm of upper lobe of left lung (HCC) Expected: 01/03/2022, Expires: 03/05/2022 [facility] Work Phone: Comment on above: Expected: 01/03/2022 , Expires: 03/05/2022 Start: 01-03-2022 End: 03-05-2022 Comprehensive metabolic 2000 panel - Serum or Plasma COMP METABOLIC PANEL Lab Routine Malignant neoplasm of upper lobe of left lung (HCC) Expected: 01/03/2022, Expires: 03/05/2022 [facility] Work Phone: Comment on above: Expected: 01/03/2022 , Expires: 03/05/2022 Start: 01-03-2022 End: 03-05-2022 Magnesium [Mass/volume] in Serum or Plasma MAGNESIUM BLD Lab Routine Malignant neoplasm of upper lobe of left lung (HCC) Expected: 01/03/2022, Expires: 03/05/2022 [facility] Work Phone: Comment on above: Expected: 01/03/2022 , Expires: 03/05/2022 Start: 12-10-2021 End: 02-09-2022 CBC W Auto Differential panel - Blood CBC + DIFF Lab Routine Malignant neoplasm of upper lobe of left lung (HCC) Acute kidney injury (HCC) Expected: 12/10/2021 (Approximate), Expires: 02/09/2022 [facility] Work Phone: Comment on above: Expected: 12/10/2021 (Approximate), Expires: 02/09/2022 Start: 12-10-2021 End: 02-09-2022 Comprehensive metabolic 2000 panel - Serum or Plasma COMP METABOLIC PANEL Lab Routine Malignant neoplasm of upper lobe of left lung (HCC) Acute kidney injury (HCC) Expected: 12/10/2021 (Approximate), Expires: 02/09/2022 [facility] Work Phone: Comment on above: Expected: 12/10/2021 (Approximate), Expires: 02/09/2022 Start: 12-03-2021 End: 02-02-2022 CBC W Auto Differential panel - Blood CBC + DIFF Lab Routine Malignant neoplasm of upper lobe of left lung (HCC) Expected: 12/03/2021, Expires: 02/02/2022 [facility] Work Phone: Comment on above: Expected: 12/03/2021 , Expires: 02/02/2022 Start: 12-03-2021 End: 02-02-2022 Comprehensive metabolic 2000 panel - Serum or Plasma COMP METABOLIC PANEL Lab Routine Malignant neoplasm of upper lobe of left lung (HCC) Expected: 12/03/2021, Expires: 02/02/2022 [facility] Work Phone: Comment on above: Expected: 12/03/2021 , Expires: 02/02/2022 Start: 11-30-2021 End: 01-30-2022 CBC W Auto Differential panel - Blood CBC + DIFF Lab Routine Malignant neoplasm of upper lobe of left lung (HCC) Acute kidney injury (HCC) Expected: 11/30/2021, Expires: 01/30/2022 [facility] Work Phone: Comment on above: Expected: 11/30/2021 , Expires: 01/30/2022 Start: 11-30-2021 End: 01-30-2022 Comprehensive metabolic 2000 panel - Serum or Plasma COMP METABOLIC PANEL Lab Routine Malignant neoplasm of upper lobe of left lung (HCC) Acute kidney injury (HCC) Expected: 11/30/2021, Expires: 01/30/2022 [facility] Work Phone: Comment on above: Expected: 11/30/2021 , Expires: 01/30/2022 Start: 11-19-2021 End: 01-19-2022 Basic metabolic 2000 panel - Serum or Plasma [facility] Work Phone: Comment on above: Expected: 11/19/2021 , Expires: 01/19/2022 Start: 11-14-2021 End: 01-14-2022 Basic metabolic 2000 panel - Serum or Plasma BASIC METABOLIC PNL Lab Routine Malignant neoplasm of upper lobe of left lung (HCC) Expected: 11/14/2021, Expires: 01/14/2022 [facility] Work Phone: Comment on above: Expected: 11/14/2021 , Expires: 01/14/2022 Start: 11-12-2021 End: 01-12-2022 CBC W Auto Differential panel - Blood CBC + DIFF Lab Routine Malignant neoplasm of upper lobe of left lung (HCC) Expected: 11/12/2021, Expires: 01/12/2022 [facility] Work Phone: Comment on above: Expected: 11/12/2021 , Expires: 01/12/2022 Start: 11-12-2021 End: 01-12-2022 Comprehensive metabolic 2000 panel - Serum or Plasma COMP METABOLIC PANEL Lab Routine Malignant neoplasm of upper lobe of left lung (HCC) Expected: 11/12/2021, Expires: 01/12/2022 [facility] Work Phone: Comment on above: Expected: 11/12/2021 , Expires: 01/12/2022 Start: 10-26-2021 End: 11-18-2022 Mri brain brain stem w/o w/contrast material MRI BRAIN WO/W IVCON Radiology Routine Malignant neoplasm of upper lobe of left lung (HCC) Expected: 10/26/2021, Expires: 11/18/2022 [facility] Work Phone: Comment on above: Expected: 10/26/2021 , Expires: 11/18/2022 Start: 09-11-2021 Covid-19 Vaccine (5 - Moderna series) Covid-19 Vaccine (5 - Moderna series) [facility] Start: 07-21-2021 DEPRESSION ASSESSMENT DEPRESSION ASS ESSMENT [facility] Start: 05-15-2021 COVID-19 VACCINE (3 - Booster for Moderna series) COVID-19 VACCINE (3 - Booster for Moderna series) [facility] Start: 03-21-2021 Influenza vaccination INFLUENZA (#1) [facility] Start: 02-07-2021 COVID-19 VACCINE (3 - Moderna series) COVID-19 VACCINE (3 - Moderna series) [facility] Start: 01-10-2021 COVID-19 VACCINE (3 - Moderna risk 4-dose series) COVID-19 VACCINE (3 - Moderna risk 4-dose series) [facility] Start: 01-10-2021 COVID-19 VACCINE (3 - Moderna risk series) COVID-19 VACCINE (3 - Moderna risk series) [facility] Start: 2017 RSV Vaccine (1 - 1-d ose 60+ series) RSV Vaccine (1 - 1-dose 60+ series) [facility] Start: 02-14-2012 PROSTATE CANCER SCREENING DISCUSSION PROSTATE CANCER SCREENING DISCUSSION [facility] Start: 02-14-2012 Prostate specific antigen measurement Prostate Cancer Screening Discussion [facility] Start: 2007 SHINGRIX VACCINE (1 of 2) SHINGRIX VACCINE (1 of 2) [facility] Start: 2002 COLOGUARD (FIT-DNA) COLOGUARD (FIT-D NA) [facility] Start: 2002 Colonoscopy COLONOSCOPY [facility] Start: 2002 COLORECTAL CANCER SCREENING COLORECTAL CANCER SCREENING [facility] Start: [address] [facility] Start: 2002 FECAL OCCULT BLOOD FECAL OCCULT BLOO D [facility] Start: 2002 Screening for malign ant neoplasm of colon [facility] Start: 2002 SIGMOIDOSCOPY SIGMOIDOSCOPY [facility] Start: 02-14-1992 Lipid 1996 panel - Serum or Plasma Lipid Screening [facility] Start: 02-14-1992 Lipid panel Lipid Screening [facility] Start: 02-14-1992 LIPID SCREEN LIPID SCREEN [facility] Start: 1987 Zoledronic acid therapy ALPHA- 1 ANTITRYPSIN DEFICIENCY SCREENING [facility] Start: 02-14-1976 SHINGRIX VACCINE (1 of 2) SHINGRIX VACCINE (1 of 2) [facility] Start: 1975 ANNUAL PCP TEAM SUPERINTENDENT POWER ALYSSA DISEASE VISIT ANNUAL PCP TEAM CHRONIC DISEASE VISIT [facility] Start: 1975 Anxiety Screening Anxiety Screening [facility] Start: 1975 BP CONTROLLED (<130/80) BP CONTROLLE D (<130/80) [facility] Start: 1975 Depression Screening Depression Scre ening [facility] Start: 1975 Hepatitis B surface antibody level LDL CHOLESTEROL [facility] Start: 1975 HEPATITIS C SCREENING HEPATITIS C [facility] Start: 1975 Hepatitis C screening Hepatitis C [facility] Start: 1975 HIV SCREENING HIV SCREENING [facility] Start: 1969 Adult depression screening assessment DEPRESSION SCREENING [facility] Start: 1963 PNEUMOCOCCAL (1 - PCV) PNEUMOCOCCAL (1 - PCV) [facility] Start: 1963 Pneumococcal Vaccine : 65+ (1 - PCV) Pneumococcal Vaccine: 65+ (1 - PCV) [facility] Start: 1963 Pneumococcal Vaccine : 65+ (1 of 2 - PCV) Pneumococcal Vaccine: 65+ (1 of 2 - PCV) [facility] Start: 1963 PNEUMOCOCCAL: 65+ (1 - PCV) PNEUMOCOCCAL: 65+ (1 - PCV) [facility] Start: 1957 ABDOMINAL AORTIC ANEURYSM SCREENING ABDOMINAL AORTIC ANEURYSM SCREENING [facility] Start: 1957 Abdominal aortic aneurysm screening Abdominal Aortic Aneurysm Screening [facility] Anion gap measurement [facility] aPTT in Platelet poo r plasma by Coagulation assay [facility] Basophils [#/volume] in Blood by Automated count [facility] Basophils/100 leukocytes in Blood by Automated count [facility] Biopsy soft tissue neck/thorax BIOPSY SOFT TISSUE NECK/CHEST Procedures Routine Malignant neoplasm of upper lobe of left lung (HCC) Ordered: 10/15/2022 [facility] Work Phone: Comment on above: Ordered: 10/15/2022 End: 05-08-2023 Bone &/joint imaging whole body NM BONE WHOLE BODY Radiology Routine Malignant neoplasm of unspecified part of unspecified bronchus or lung (HCC) 1 Occurrences starting 04/08/2022 until 05/08/2023 [facility] Work Phone: Comment on above: 1 Occurrences starti ng 04/08/2022 until 05/08/2023 End: 09-19-2023 Ct abdomen & pelvis w/contrast material CT ABD/PEL W IVCON Radiology Routine Malignant neoplasm of upper lobe of left lung (HCC) 1 Occurrences starting 08/20/2022 until 09/19/2023 [facility] Work Phone: Comment on above: 1 Occurrences starti ng 08/20/2022 until 09/19/2023 End: 09-19-2023 CT CHEST W IVCON CT CHEST W IVCON Radiology Routine 1 Occurrences starting 08/20/2022 until 09/19/2023 [facility] Work Phone: Comment on above: 1 Occurrences starti ng 08/20/2022 until 09/19/2023 CT Guidance for radiation treatment of Unspecified body region CT SIM PLANNING RADIATION ONCOLOGY Radiology Routine Malignant neoplasm of upper lobe of left lung (HCC) Ordered: 12/02/2023 [facility] Work Phone: Comment on above: Ordered: 12/02/2023 CT SIM PLANNING RADIATION ONCOLOGY CT SIM PLANNING RADIATION ONCOLOGY Radiology Routine Malignant neoplasm of upper lobe of left lung (HCC) Ordered: 03/20/2022 [facility] Work Phone: Comment on above: Ordered: 03/20/2022 CT SIM PLANNING RADIATION ONCOLOGY CT SIM PLANNING RADIATION ONCOLOGY Radiology Routine Malignant neoplasm of unspecified part of unspecified bronchus or lung (HCC) Ordered: 10/21/2022 [facility] Work Phone: Comment on above: Ordered: 10/21/2022 CT SIM PLANNING RADIATION ONCOLOGY CT SIM PLANNING RADIATION ONCOLOGY Radiology Routine Oropharnyx cancer (HCC) Ordered: 06/11/2023 [facility] Work Phone: Comment on above: Ordered: 06/11/2023 Eosinophils/100 leukocytes in Blood by Automated count [facility] Erythrocyte distribution width [Ratio] by Automated count [facility] Erythrocytes [#/volu me] in Blood [facility] Hematocrit [Volume Fraction] of [facility] Hemoglobin [Mass/volume] in [facility] Hemoglobin.gastroint est inal.lower [Presence] in Stool by Immunoassay FECAL OCCULT BLOOD TEST Lab Routine Malignant neoplasm of upper lobe of left lung (HCC) Ordered: 02/07/2022 [facility] Work Phone: Comment on above: Ordered: 02/07/2022 Hepatic function 200 0 panel - Serum or Plasma HEPATIC FUNCTION PNL Lab STAT Malignant neoplasm of upper lobe of left lung (HCC) 11/11/2022 2:47 PM EDT [facility] Work Phone: INR in Platelet poor plasma by Coagulation assay [facility] Leukocytes [#/volume ] corrected for nucleated erythrocytes in Blood by Automated coun [facility] Leukocytes [#/volume ] in Blood [facility] End: 04-14-2025 LUNG DIFFUSION CAPACITY (DLCO) LUNG DIFFUSION CAPACITY (DLCO) PFT Routine Centrilobular emphysema (HCC) Dyspnea on exertion 1 Occurrences starting 03/15/2024 until 04/14/2025 [facility] Comment on above: 1 Occurrences starti ng 03/15/2024 until 04/14/2025 Lymphocytes [#/volum e] in Blood by Automated count [facility] Lymphocytes/100 leukocytes in Blood by Automated count [facility] MCH [Entitic mass] b y Automated count [facility] MCHC [Mass/volume] b y Automated count [facility] MCV [Entitic volume] by Automated count [facility] Monocytes [#/volume] in Blood by Automated count [facility] Monocytes/100 leukocytes in Blood by Automated count [facility] MRA Head vessels WO contrast [facility] Neutrophils [#/volum e] in Blood by Automated count [facility] Neutrophils/100 leukocytes in Blood by Automated count [facility] End: 10-23-2023 NM PET/CT SKULL-THIGH SUBSEQUENT NM PET/CT SKULL-THIGH SUBSEQUENT Radiology Routine Lung nodules 1 Occurrences starting 09/23/2022 until 10/23/2023 [facility] Work Phone: Comment on above: 1 Occurrences starti ng 09/23/2022 until 10/23/2023 End: 09-23-2024 NM PET/CT SKULL-THIGH SUBSEQUENT NM PET/CT SKULL-THIGH SUBSEQUENT Radiology Routine 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) 1 Occurrences starting 08/25/2023 until 09/23/2024 [facility] Work Phone: Comment on above: 1 Occurrences starti ng 08/25/2023 until 09/23/2024 Nucleated erythrocyt es [Presence] in Blood by Automated count [facility] Patient Education [facility] Work Phone: Patient referral [facility] Work Phone: End: 12-03-2024 PET+CT Guidance for localization of tumor of Skull base to mid-thigh-- W 18F-FDG IV NM PET/CT SKULL-THIGH SUBSEQUENT Radiology Routine 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) 1 Occurrences starting 11/04/2023 until 12/03/2024 [facility] Work Phone: Comment on above: 1 Occurrences starti ng 11/04/2023 until 12/03/2024 End: 03-04-2025 PET+CT Guidance for localization of tumor of Skull base to mid-thigh-- W 18F-FDG IV NM PET/CT SKULL-THIGH SUBSEQUENT Radiology Routine 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 Swelling of arm Cancer associated pain 1 Occurrences starting 02/03/2024 until 03/04/2025 [facility] Comment on above: 1 Occurrences starti ng 02/03/2024 until 03/04/2025 Platelet mean volume [Entitic volume] in Blood by Automated count [facility] Platelets [#/volume] in Blood [facility] Prothrombin time (PT) [facility] End: 11-10-2022 Radiologic exam chest 2 views XR CHEST 2V FRONTAL/LAT Radiology Routine Malignant neoplasm of upper lobe of left lung (HCC) 1 Occurrences starting 10/11/2021 until 11/10/2022 [facility] Work Phone: Comment on above: 1 Occurrences starti ng 10/11/2021 until 11/10/2022 SPIROMETRY WITH DILA TOR IF OBSTRUCTED SPIROMETRY WITH DILATOR IF OBSTRUCTED PFT Routine Chronic obstructive pulmonary disease, unspecified COPD type (HCC) Lung nodule 01/29/2022 7:47 AM EDT [facility] Work Phone: End: 04-14-2025 SPIROMETRY WITH DILATOR IF OBSTRUCTED SPIROMETRY WITH DILATOR IF OBSTRUCTED PFT Routine Centrilobular emphysema (HCC) Dyspnea on exertion 1 Occurrences starting 03/15/2024 until 04/14/2025 [facility] Work Phone: Comment on above: 1 Occurrences starti ng 03/15/2024 until 04/14/2025 End: 03-04-2025 US Upper extremity vein - left US DVT UPPER LEFT Radiology STAT 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) Swelling of arm 1 Occurrences starting 02/03/2024 until 03/04/2025 [facility] Comment on above: 1 Occurrences starti ng 02/03/2024 until 03/04/2025 [facility] Immunizations Immunization Date Immunization Notes Care Provider Fa cility 12-13-2020 COVID-19 vaccine, fu ll dose (MODERNA) Aracelis Carrillo PLANOGRAPH OPERATOR.SOLAR PANEL TECHNICIAN Work Phone: [facility] 11-15-2020 COVID-19 vaccine, fu ll dose (MODERNA) Aracelis Carrillo PLANOGRAPH OPERATOR.SOLAR PANEL TECHNICIAN Work Phone: [facility] 10-13-2020 diphtheria, tetanus toxoids and pertussis vaccine Aracelis Carrillo APRN.SOLAR PANEL TECHNICIAN Work Phone: [facility] Payers Date Payer Category Payer Self-pay [id number] 2023 Private Health Insurance [facility] [id number] 2022 Medicare MEDICARE MEDICAR E A AND B [id number] [phone] [facility] [address] [place] [address] Medicare [id number] 2022 Medicare [id number] .[id number] 2019 Medicaid [id number] 2000 Medicaid [id number] [id number] .[id number] 1959 Medicare [id number] 1959 Unknown [id number] 1957 Unknown [id number] 2.16.840.1.586947.3.579.2.6 47 1957 Unknown [id number] 2.16.840.1.870239.3.579.2.5 93 1957 Unknown [id number] 2.16.840.1.368330.3.579.2.5 93 1957 Unknown [id number] 2.16.840.1.957400.3.579.2.5 93 1957 Unknown [id number] 2.16.840.1.191564.3.579.2.5 93 1957 Unknown [id number] 2.16.840.1.773266.3.579.2.5 1957 Unknown [id number] 2.16.840.1.640019.3.579.2.5 1957 Unknown [id number] 2.16.840.1.310509.3.579.2.5 1957 Unknown [id number] 2.16.840.1.035268.3.579.2.5 1957 Unknown [id number] 2.16.840.1.232231.3.579.2.5 1957 Unknown [id number] 2.16.840.1.160048.3.579.2.5 1957 Unknown [id number] 2.16.840.1.625447.3.579.2.3 1957 Unknown [id number] 2.16.840.1.943324.3.579.2.7 1957 Unknown [id number] 2.16.840.1.791438.3.579.2.7 1957 Unknown [id number] 2.16.840.1.754871.3.579.2.7 1957 Unknown [id number] 2.16.840.1.435313.3.579.2.7 1957 Unknown [id number] 2.16.840.1.721392.3.579.2.7 1957 Unknown [id number] 2.16.840.1.167872.3.579.2.7 1957 Unknown [id number] 2.16.840.1.055229.3.579.2.7 1957 Unknown [id number] 2.16.840.1.664830.3.579.2.7 1957 Unknown [id number] 2.16.840.1.223109.3.579.2.7 1957 Unknown [id number] 2.16.840.1.521041.3.579.2.7 1957 Unknown [id number] 2.16.840.1.708985.3.579.2.7 1957 Unknown [id number] 2.16.840.1.354403.3.579.2.7 1957 Unknown [id number] 2.16.840.1.007534.3.579.2.7 1957 Unknown [id number] 2.16.840.1.280447.3.579.2.7 1957 Unknown [id number] 2.16.840.1.883504.3.579.2.7 1957 Unknown [id number] 2.16.840.1.202744.3.579.2.7 27 Unknown [id number] 2.16.840.1.100958.3.579.2.5 31 Unknown [id number] 2.16.840.1.775617.3.579.2.5 31 Unknown [id number] 2.16.840.1.913814.3.579.2.5 31 Unknown [id number] 2.16.840.1.184658.3.579.2.5 31 Social History Date Type Detail Facility Start: 07-03-2021 End: 04-30-2022 Tobacco smoking status NVIS Ex-smoker [facility] Start: 07-21-1970 End: 07-13-2020 History of tobacco use Current smoker [facility] Start: 07-21-1970 End: 07-21-2020 History of tobacco use Cigarette Smoker [facility] Start: 07-03-2021 End: 04-30-2022 Tobacco use and exposure Smokeless tobacco non-user [facility] Start: 10-11-2021 End: 12-23-2023 Alcohol intake Current drinker of alcohol (finding) [facility] Start: 10-11-2021 End: 11-20-2022 Alcohol intake [facility] Start: 09-25-2021 End: 03-26-2022 Tobacco Comment was smoking on and off fully quit 09/14/21 [facility] Start: 1955 Sex Assigned At Not on file [facility] Start: 04-27-2021 End: 06-11-2022 Exposure to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 03/17/2024 This visit was conducted as a virtual/telehealth visit, in lieu of a face to face encounter,patient's identity and physical location were verified at the time of this visit. Either the patient or their legal loan servicing representative has been informed of the risks and benefits of -- and alternatives to -- treatment through a remote evaluation and consents to proceed with the evaluation remotely. Patient identity and location confirmed: Patient Name:Cristal Gu :1955 Primary Site of Disease/Medical Illness: Lung Site of Metastasis: invasion of the visceral pleura and chest wall adipose tissue, arterial invasion present CHIEF COMPLAINT: Neoplasm Pain PERTINENT MEDICAL HISTORY: Lung cancer with invasion of the visceral pleura and chest wall adipose tissue, arterial invasion present. Tongue mass Anxiety, Centrilobular emphysema, CAD, PVD Subjective I met with Pérze via virtual visit, he is alert oriented x 3, appears uncomfortable ans anxious. Increasing pain continues over his left upper chest wall radiating to left shoulder and down left arm, Described as a mix of nocieptive and neuropathic pain. swelling was noted in left had, DVT ruledout PET 03/09/24 shows: PRIMARY SITE: CHEST: Hypermetabolic bilateral lung nodules/masses with interval progression from prior PET scan. KAMILAH DISEASE: Hypermetabolic right hilar lymphadenopathy. Hypermetabolic left subpectoral region mass with some interval decrease in activity. He felt the increase in fentanyl was helpful for the pain, but he does not feel that the oxycodone makes a difference, continues Lyrica, he stopped duloxetine as he felt that it made him feel more depressed. 02/20/24 to ED for sore throat, found to have a mass on his tongue by CT. no sore throat today, no dysphagia, has a prescription for BMX swish and spit which improves discomfort He tells me that his appetite is good, he has no constipation or diarrhea, however he continues to lose weight. Constipation controlled with Miralax and Senakot Appetite poor Last 4 Encounter Wt Readings: Date: Wt: 03/15/2024 49.9 kg (110 lb) 02/03/2024 52.2 kg (115 lb 1.3 oz) 12/23/2023 55.2 kg (121 lb 11.1 oz) 12/22/2023 51.8 kg (114 lb 3.2 oz) Continues xanax tid for anxiety prescribed by pcp. Using olanzapine nightly, it has improved anxiety and sleep. He admits to increased anxiety with increasing pain. Modified ESAS ([place] Symptom Assessment Scale) Information Provided By: Patient Pain: Severe Nausea: Mild Loss of Appetite: Mild Constipation: None Shortness of Breath: Mild Drowsiness: None Tiredness: Moderate Depression: None Anxiety: Moderate Objective ECOG PERFORMANCE STATUS: 2- Ambulatory and capable of all selfcare; unable to carry out work activities. Up and about > 50% of waking hrs. PHYSICAL EXAMINATION: Vital signs: There were no vitals taken for this visit. Last 1 Encounter Temp Readings: Date: Temp: Temp Src: 02/03/2024 36.3 C (97.3 F) Temporal Last 1 Encounter Resp Readings: Date: Resp: 02/03/2024 18 Last 1 Encounter Pulse Readings: Date: Pulse: 03/15/2024 65 Last 1 Encounter BP Readings: Date: BP: 03/15/2024 127/62 Physical Exam DATA: Diagnostic tests reviewed for today's visit: Most recent labs and imaging results. CrCl cannot be calculated (Unknown ideal weight.). Opioid Management: Yes Indication for Opioid Prescribing: [...] the underlying condition causing the pain been reviewed?Yes How much does pain impede patient s [...] All prescriptions have been APPROPRIATELY filled. No suspiciousactivity was identified. 03/17/2024 by Estella Fish NP, PLANOGRAPH OPERATOR.SOLAR PANEL TECHNICIAN Urine Screen Lab Results Component Value Date UAMPH Negative 09/26/2021 UBARB2 Negative 09/26/2021 UBENZ Negative 09/26/2021 UCOC2 Negative 09/26/2021 UOPI Negative 09/26/2021 UOXYC Negative 09/26/2021 UPCP Negative 09/26/2021 UTHC Negative 09/26/2021 UETOH <11 09/26/2021 Assessment & Plan (Z51.5) Palliative care by specialist (primary encounter diagnosis) - Reviewed philosophy of palliative medicine - [facility] - Provided support -Discussed services offered by palliative medicine and how to contact us (C34.92) 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) (G89.3) Cancer associated pain - lyrica 100 mg po tid - transdermal Fentanyl 100 mcg/ hr - Oxycodone 10- 20 mg po every 4 hours prn pain - Effexor 37.5 (E46) Protein-calorie malnutrition, unspecified severity (HCC) (R63.0) Anorexia (R11.0) Nausea - Continue Zofran prn every 8 hours - Increase [id number] mg p.o. at bedtime -Small frequent meals maximizing protein and calories consider nutritional shakes - Requests functional medicine consult (F41.9) Anxiety (F51.04) Insomnia -Discussed we will continue Xanax for to use as needed for severe anxiety attacks, but but gold standard of treatment is a multimodal approach -Discussed danger of using Xanax and alcohol together, increases the risk of respiratory depressionwhich can lead to or permanent disability - Continue icxlgerews20 mg p.o. at bedtime - Effexor 37.5 mg -Continue alprazolam 0.25 mg p.o. every 8 hours as needed severe anxiety - Offered emotional support through onco psych Some elements copied from my note on 11/28/23, the elements have been updated and all reflect current decision making from today, 03/17/2024. Existence of Advance Directives: No - not interested Next Visit: 4 Weeks in person Estella Fish, RACHEL, PLANOGRAPH OPERATOR.SOLAR PANEL TECHNICIAN March 17, 2024 1:24 PM I spent a total of 35 minutes on the date of the service which included preparing to see the patient, [id number] patient care, completing clinical documentation, obtaining and/or reviewing separately obtained history, performing a medically appropriate examination, counseling and educating the pat ient/family/caregiver, ordering medications, tests, or procedures, communicating with other HCPs (not separately reported), independently interpreting results (not separately reported), communicatingresults to the patient/family/caregiver, and care coordination (not separately reported). This note may have been partially generated using the [employer] voice recognition system. While every effort was made to correct voice recognition errors, kindly be aware that some errors may occasionally occur.occur documented in this encounterUniversity Hospitals Portage Medical Center08-26-2024 NoteMemorial Health System08-26-2024 History of Present illness Narrative* Merary Lucas MD - 03/15/2024 12:59 PM EDT Pulmonary Office Visit Progress Note COMMUNICATION WILL BE SENT VIA SHARED MEDICAL RECORDS OR US MAIL. CC: COPD HPI: Cristal Gu is a 69 year old year old male who presents for follow-up of COPD, last seen int office 01/29/[address] Whelan. Patient is not too sure why he was referred here, but does note increased shortness of breath over the past few months. He states he feels it may be from the progression of his cancer but he is not sure. When he was seen 2 years ago he was on Stiolto however it sounds like since then he has stopped using it. He currently is using albuterol once in a while which seems to help on and off. His shortness of breath is not just with exertion can occur at any timerandomly as well. He feels that there is likely a component of anxiety and Xanax has helped him in the past. He has a nebulizer as well that he uses as needed. Dyspnea has worsened this past year. Can be sitting and get short of breath. Takes anxiety medication which helps. [facility] appt tomorrow No recent pneumonia. He has been coughing up green things. He took an antibiotic, a pink pill, couple weeks ago. Maybe amoxicillin 02/04. Sounds like he was treated for bronchitis or exacerbation, unclear to me, at an outside facility. He has gone to ER for sob. Up until a couple of months ago he was walking 2 miles at the [facility]. 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 Former smoker: quit about a year or so Smoked about more than a pack per day, about 1.5 packs per day PAST MEDICAL HISTORY No date: Carotid artery disease (HCC) Comment: bilateral No date: COPD (chronic obstructive pulmonary disease) (HCC) No date: Heart attack (HCC) No date: History of non-ST elevation myocardial infarction (NSTEMI) No date: HTN (hypertension) 09/25/2021: Hypertension No date: Lung cancer (HCC) No date: Malignant neoplasm of lower lobe of left lung (HCC) 2019: Peripheral arterial disease (HCC) Comment: R LEAD BUSINESS 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 stent PAST SURGICAL HISTORY 2019: BACK SURGERY HX 2016: CABG (4) VEIN GRAFTS & ARTERIAL GRAFT(S) 2019: LOWER EXTREMITY APPRAISAL COORDINATOR W/WO STENT; Right Comment: right common femoral artery stent 09/26/2021: REMOVAL OF LUNG,LOBECTOMY; Left Comment: VATS left upper lung wedge resection, completion lobectomy, lymph node dissection, application of Progel to staple line, intercostal nerve blocks for cancer FAMILY HISTORY Problem Relation Age of Onset Lung Cancer Father Heart Attack Father Coronary Artery Disease Father Social History Tobacco Use Smoking status: Former Current packs/day: 2.00 Average packs/day: 2.0 packs/day for 53.7 years (107.3 ttl pk-yrs) Types: Cigarettes Start date: 1970 Passive exposure: Past Smokeless tobacco: Never Tobacco comments: was smoking on and off fully quit 09/14/21 Vaping Use Vaping status: Never Used Substance Use Topics Alcohol use: Yes Alcohol/week: 30.0 standard drinks of alcohol Types: 30 Cans of Beer (12oz) per week Comment: 4-9 beers per day Drug use: Never Current Outpatient Medications Medication Sig Dispense Refill fentaNYL (DURAGESIC) 50 mcg/hr Apply 2 Patches as directed every 72 hours for 30 days. Do not cut patch. 10 Patch 0 dexAMETHasone (DECADRON) 4 mg tablet Take 1 tablet by mouth two times a day with meals. 30 tablet 1 albuterol HFA (PROVENTIL HFA, VENTOLIN HFA) 90 mcg/actuation inhaler albuterol sulfate HFA 90 mcg/actuation aerosol inhaler: INHALE 2 PUFFS BY MOUTH EVERY 4 HOURS NEEDED for SHORTNESS OF BREATH 1 Each 0 pregabalin (LYRICA) 75 mg capsule Take 1 capsule by mouth three times a day for 30 days. 90 capsule0 sotorasib (LUMAKRAS) 320 mg tablet Take 3 tablets by mouth once daily. 90 tablet 3 naloxone 4 mg/actuation nasal spray (NARCAN) Use 1 spray in one nostril as needed for overdose. Mayrepeat every 2 to 3 min in alternating nostrils until medical assistance is available 1 Each 1 DULoxetine (CYMBALTA) 30 mg capsule Take 1 capsule by mouth once daily. 90 capsule 0 ALPRAZolam (XANAX) 0.25 mg tablet Take 0.25 [...] Take 40 mg by mouth once daily. tiotropium-olodaterol (STIOLTO RESPIMAT) 2.5-2.5 mcg/actuation inhaler Inhale 2 Puffs as instructedonce daily. 4 g 5 oxyCODONE IR (ROXICODONE) 10 mg tab Take 1-2 tablets by mouth every 4 hours as needed for pain for up to 7 days. 84 tablet 0 levothyroxine (SYNTHROID) 75 mcg tablet Take 1 tablet by mouth once daily. 30 tablet 1 No current facility-administered medications for this visit. ALLERGIES No Known Allergies REVIEW OF SYSTEMS GENERAL: No weight loss, malaise or fevers . HEENT: Negative for frequent or significant headaches NECK: Negative for pain or significant neck swelling RESPIRATORY: see HPI CARDIOVASCULAR: Negative for chest pain, leg swelling or palpitations GI: No nausea, vomiting, or diarrhea : No history of dysuria or frequency MUSCULOSKELETAL: negative SKIN: Negative for lesions, rash, and itching . PSYCH: Negative for sleep disturbance, mood disorder and recent psychosocial stressors The remainder of the review of systems is negative. PHYSICAL EXAMINATION: BP 127/62 Pulse 65 Wt 110 lb (49.9kg) SpO2 100[ra]% General appearance: well appearing, in no acute distress, alert Skin: skin color normal, no rashes or lesions Eyes: Anicteric sclera. Extraocular movements are intact. Ears: External ears normal, canals clear Nose: Nasal mucosa appears normal Oropharynx: lips, mucosa, and tongue normal, oropharynx normal Neck: Supple, no adenopathy Respiratory: lungs clear to auscultation, no wheezing or rhonchi Cardiovascular: S1, S2. RRR without murmur. No lower extremity edema Gastrointenstinal: Abdomen soft, non-tender Musculoskeletal: Extremities normal. No deformities or skin discoloration. Neuro: Gait normal. Sensation grossly intact. DATA: I personally reviewed the labs, PFTs and radiographs PET scan IMPRESSION: PRIMARY SITE: CHEST: Hypermetabolic bilateral lung nodules/masses with interval progression from prior PET scan. KAMILAH DISEASE: Hypermetabolic right hilar lymphadenopathy. Hypermetabolic left subpectoral region mass with some interval decrease in activity. METASTASES: No distant hypermetabolic metastases. OTHER FINDINGS: Persistent hypermetabolic focus in the right tonsillar/tongue base region PFT: 01/29/2022 IMPRESSION: Spirometry indicates mild obstruction. There was not a significant bronchodilator response. The diffusing capacity corrected for hemoglobin is moderately reduced. The diffusing capacity independent of alveolar volume (kCO) is reduced. The presence of a reduced lung diffusing capacity - that does not normalize when measured independent of alveolar volume (kCO) suggests a parenchymal or pulmonary vascular disorder. Assessment: - COPD - mild obstruction on PFT in 2021, unclear if worse, but he is having worse dyspnea. He thinks it may be due to progression of cancer. No longer on stiolto. Albuterol prn. 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 Currently on Lumakras therapy since Apr 2023 - chronic cancer pain - radiation to left chest wall December 2023 - carcinoma of right tonsil - s/p palliative radiation December 2023 - former smoker - quit a year ago - CAD - s/p CABG at least 5 years ago per patient Plan: - start stiolto for maintenance at 2 puffs daily - has albuterol to use prn for sob or wheezing, unclear if helping, but encouraged continued use - obtain updated PFTs to reevaluate degree of COPD - he will have close follow up with oncology to review next steps - encouraged deep breathing exercises and exercise as tolerated - has pall med appt tomorrow; ed has been helping from pcp per patient, encouraged discussing with pall med tomorrow to evaluate for symptom control options - may need to see cardiology again depending on above - call with any questions or concerns Discussed with the patient who agrees to the plan Return to the office in 4-6 weeks with PFTs or sooner Merary Lucas MD Pulmonary & Critical Care Medicine [facility] [place] March 15, 2024 1:01 PM I spent a total of 40 minutes on the date of the service which included preparing to see the patient, [id number] patient care, completing clinical documentation, obtaining and/or reviewing separately obtained history, performing a medically appropriate examination, counseling and educating the pat ient/family/caregiver, ordering medications, tests, or procedures, communicating with other HCPs (not separately reported), independently interpreting results (not separately reported), and communicating results to the patient/family/caregiver. documented in this encounterUniversity Hospitals Portage [facility] Center08-26-2024 Telephone encounter Note * Telephone Encounter - Denita Rai RN - 03/15/2024 9:49 AM EDT Pt calls requesting the address for today's appointment in [place]. Address provided to pt. Name of physician spelled out over the phone per pt request as well. Pt also asks for the date and time of hisPall Med appointment. Informed pt that he is currently scheduled to see Estella Phantomanay this 03/17 @ 1030 in our [place] office. Appointment details written down per pt. Pt denies any other questions at this time. Denita Rai RN [facility] Work Phone: [phone] Miscellaneous Notes* Telephone Encounter - Denita Rai RN - 03/15/2024 9:49 AM EDT Pt calls requesting the address for today's appointment in [place]. Address provided to pt. Name of physician spelled out over the phone per pt request as well. Pt also asks for the date and time of hisPall Med appointment. Informed pt that he is currently scheduled to see Estella Phantomtono this 03/17 @ 1030 in our [place] office. Appointment details written down per pt. Pt denies any other questions at this time. Denita Rai RN documented in this encounterUniversity Hospitals Portage Medical Center08-20-2024 Telephone encounter Note * Telephone Encounter - Julieth Tapia RN - 03/09/2024 2:05 PM EDT Palliative Medicine Care Coordination Follow up Phone Call Patient returned our call. Patient identified by name and : Yes Spoke with Pérez. Let him know Christina VILLEDA would like to trial a steroid and she sent a prescription to his [facility] pharmacy. Instructed him to follow the directions for the medication. Also said he can increase his fentanyl patch and place a second 50 mcg patch on the equal 100 mcg/hr. Educated to continued using his Oxy IR 10 mg tablets taking 1-2 tablets every 4 hours as needed for BT pain. Advised he k eep a pain log of his daily usage and call if this pain regimen ineffective. Reinforced CURRENT treatment education based on current and anticipated symptoms Teach back method performed: YES Patient verbalizes when to seek medical attention for new/worsening symptoms. Office and on-call numbers reviewed with patient. Julieth Tapia RN March 09, 2024 2:10 PM [facility]08-20-2024 Miscellaneous Notes* Telephone Encounter - Julieth Tapia RN - 03/09/2024 2:05 PM EDT Palliative Medicine Care Coordination Follow up Phone Call Patient returned our call. Patient identified by name and : Yes Spoke with Pérez. Let him know Christina VILLEDA would like to trial a steroid and she sent a prescription to his [facility] pharmacy. Instructed him to follow the directions for the medication. Also said he can increase his fentanyl patch and place a second 50 mcg patch on the equal 100 mcg/hr. Educated to continued using his Oxy IR 10 mg tablets taking 1-2 tablets every 4 hours as needed for BT pain. Advised he k eep a pain log of his daily usage and call if this pain regimen ineffective. Reinforced CURRENT treatment education based on current and anticipated symptoms Teach back method performed: YES Patient verbalizes when to seek medical attention for new/worsening symptoms. Office and on-call numbers reviewed with patient. Julieth Tapia RN March 09, 2024 2:10 PM * Telephone Encounter - Denita Rai RN - 03/09/2024 1:52 PM EDT Pt calls w/ c/o increased pain. Informed pt that Pall Med attempted to contact him earlier today, but his voicemail was full. Phone number for Pall Med given to pt. Pt verbalizes understanding and will call them back. Denita Rai RN * Telephone Encounter - Julieth Tapia RN - 03/09/2024 1:27 PM EDT Palliative Medicine Care Coordination Follow up Phone Call Telephone call to Cristal Gu and his brother Christina Gu with no answer, both VM's say VM box full and unable to leave a message. Julieth Tapia RN March 09, 2024 1:30 PM * Telephone Encounter - Estella Fish APRN.CNP - 03/09/2024 1:17 PM EDT Lets try a dex pain taper, sent to [facility] He can also place two transdermal Fentanyl Patches on for a total of 100 mcg/hr * Telephone Encounter - Deborah Warner RN - 03/09/2024 12:04 PM EDT Patient was in for a scan today, 03/09/24, c/o 10/10 pain in right shoulder pt in tears. Stated is unable to do anything due to shoulder pain and is not sleeping. Pt stated is taking oxycodone and fentanyl as prescribed without relief. He has an appointment with you next Friday. He was asking if there could be any other pain medication he could take. His pharmacy is [facility] in [place]. Please advise. Thanks! Deborah Warner, RN documented in this encounterUniversity Hospitals Portage Medical Center08-20-2024 Telephone encounter Note * Telephone Encounter - Denita Rai RN - 03/09/2024 1:52 PM EDT Pt calls w/ c/o increased pain. Informed pt that Pall Med attempted to contact him earlier today, but his voicemail was full. Phone number for Pall Med given to pt. Pt verbalizes understanding and will call them back. Denita Rai RN [facility] Work Phone: [phone] Telephone encounter Note* Telephone Encounter - Julieth Tapia RN - 03/09/2024 1:27 PM EDT Palliative Medicine Care Coordination Follow up Phone Call Telephone call to Cristal Gu and his brother Christina Gu with no answer, both VM's say VM box full and unable to leave a message. Julieth Tapia RN March 09, 2024 1:30 PM [facility]08-20-2024 Telephone encounter Note* Telephone Encounter - Estella Fish APRN.RONAL - 03/09/2024 1:17 PM EDT Lets try a dex pain taper, sent to [facility] He can also place two transdermal Fentanyl Patches on for a total of 100 mcg/hr [facility]08-20-2024 Telephone encounter Note* Telephone Encounter - Deborah Warner RN - 03/09/2024 12:04 PM EDT Patient was in for a scan today, 8/20/24, c/o 10/10 pain in right shoulder pt in tears. Stated is unable to do anything due to shoulder pain and is not sleeping. Pt stated is taking oxycodone and fentanyl as prescribed without relief. He has an appointment with you next Friday. He was asking if there could be any other pain medication he could take. His pharmacy is [facility] in [place]. Please advise. Thanks! Deborah Warner RN [facility]08-20-2024 Telephone encounter Note* Telephone Encounter - Yusef Pandya PA-C - 03/09/2024 11:30 AM EDT Orders in Yusef Pandya PA-C [facility] Work Phone: [phone] Miscellaneous Notes* Telephone Encounter - Yusef Pandya PA-C - 03/09/2024 11:30 AM EDT Orders in Yusef Pandya PA-C * Telephone Encounter - Hannah Oglesby RN - 03/09/2024 11:10 AM EDT Pt here for PET today-wt decreased to 48 kg, states he has no appetite, not eating or drinking much . If agreeable please place IV fluid order for today while here for PET. Pt states fluids may 'perk me up F/u with Dr. Grigsby on 03/18 documented in this encounterUniversity Hospitals Portage Medical Center08-20-2024 Telephone encounter Note * Telephone Encounter - Hannah Oglesby RN - 03/09/2024 11:10 AM EDT Pt here for PET today-wt decreased to 48 kg, states he has no appetite, not eating or drinking much . If agreeable please place IV fluid order for today while here for PET. Pt states fluids may 'perk me up F/u with Dr. Grigsby on 03/18 [facility]08-20-2024 History of Present illness Narrative* Hannah Oglesby RN - 03/09/2024 9:00 AM EDT Radiology Service Progress Note DATE OF SERVICE: March 09, 2024 TIME: 10:28 AM PATIENT IDENTITY VERIFICATION COMPLETED USING TWO (2) STANDARD IDENTIFIERS: Name and Date of confirmed by patient verbally. FALL SCREENING: Has the patient had 2 falls in the last year or 1 fall with injury or currently using an Ambulatory Assistive Device (Walker, Cane, Wheelchair, Crutches, etc.)? Yes, Patient High Riskfor Falls What interventions were put in place to prevent falls during this visit? Instructed Patient to Callfor Help if Needed, Offered Assistance with Transfers/Clothing, and Instructed Patient to Remain Seated (Not on Exam Table) Until Exam PATIENT GENDER DATA: Male EXAM: CT -CONTRAST INDUCED NEPHROPATHY RISK FACTORS: Not applicable CREATININE: Creatinine Date Value Ref Range Status 02/03/2024 1.35 (H) 0.73 - 1.22 mg/dL Final 12/23/2023 1.19 0.73 - 1.22 mg/dL Final 11/25/2023 1.20 0.73 - 1.22 mg/dL Final Estimated Glomerular Filtration Rate Date Value Ref Range Status 02/03/2024 58 (L) >=60 mL/min/1.73m Final Comment: Estimated Glomerular Filtration Rate (eGFR) is calculated using the 2020 CKD-EPI creatinine equation. This equation utilizes serum creatinine, sex, and age as parameters. The creatinine assay has traceable calibration to isotope dilution- mass spectrometry. Refer to KDIGO guidelines for clinical interpretation. In patients with unstable renal function, e.g. those with acute kidney injury, the eGFRmay not accurately reflect actual GFR. eGFR- (POCT) Date Value Ref Range Status 07/03/2021 >60 mL/min/1.73 m2 Final P.O.C.T. RESULTS: N/A March 09, 2024 TREATMENT: N/A IV SITE: Ambulatory: A peripheral IV was started in the Right antecubital site with a Angio cath: 22 gauge. IV SITE APPEARANCE: Clean,Dry and Intact SIGNATURE: Hannah Oglesby RN PATIENT NAME: Cristal Gu DATE: March 09, 2024 TIME: 10:28 AM * Denita Yang RT(R) - 03/09/2024 9:00 AM EDT RADIOLOGY SERVICE PROGRESS NOTE SERVICE DATE: 03/09/2024 SERVICE TIME: 10:38 AM PATIENT IDENTITY VERIFICATION COMPLETED USING TWO (2) STANDARD IDENTIFIERS: Name and Date of confirmed by patient verbally POST EXAM PIV STATUS: Discontinued PROCEDURE TYPE: NM INJECT: PET/CT BODY SCAN. 5.8 mCi F18 FDG. No other medications given.. ADMINISTRATION TIME: 1023 PATIENT DISCHARGED TO: Ambulatory patient, left [place] department area. A Diagnostic radioactive procedure has taken place, with no further precautions necessary other than routine body substance precautions. More information regarding radiation safety can be found usingthis link: [email or web address] SIGNATURE: RT Charis(Marcella) PATIENT NAME: Cristal Gu DATE: March 09, 2024 TIME: 10:38 AM PAGER/CONTACT #: documented in this encounterUniversity Hospitals Portage Medical Center08-20-2024 NoteMemorial [facility] System08-20-2024 NoteMemorial [facility] System08-13-2024 Telephone encounter Note* Telephone Encounter - Florida Kearney - 03/02/2024 10:53 AM EDT Patient is scheduled with Dr Guaman in the [place] office on 03/09/2024 at 10 am per Tomasa from care everywhere. Spoke to patient & he stated he wasn't at home & was going to call us later to give us the appointment date & time of the ENT appointment. So, patient aware of appointment. MONA Hand [facility]08-13-2024 Miscellaneous Notes* Telephone Encounter - Florida Kearney - 03/02/2024 10:53 AM EDT Patient is scheduled with Dr Guaman in the [place] office on 03/09/2024 at 10 am per Tomasa from care everywhere. Spoke to patient & he stated he wasn't at home & was going to call us later to give us the appointment date & time of the ENT appointment. So, patient aware of appointment. MONA Hand * Telephone Encounter - Bernadine Davis - 02/26/2024 10:16 AM EDT Spoke with Dr Douglas office he will be looking over his stuff today and then they will call patient to schedule * Telephone Encounter - Vanessa Carl - 02/25/2024 10:44 AM EDT Records faxed to Dr. Hayward. * Telephone Encounter - Florida Kearney - 02/24/2024 1:46 PM EDT Spoke to windows application packager at Dr Hayward's office at [phone] at [facility]. She needed the referral in order to get patient scheduled. Faxed referral order over to their office at [phone]. I will call the office back to check on status of appointment tomorrow or next day. MONA Hand * Telephone Encounter - Denita Rai RN - 02/24/2024 12:19 PM EDT Clerical: Please refer pt to ENT. Abnormal CT neck. Recommending scope. Pt would like seen [facility]. Local or [facility]. Whichever can see him 1st. Denita Rai RN * Telephone Encounter - Denita Rai RN - 02/24/2024 11:55 AM EDT Pt was seen in the ER last week for c/o sore throat x 1 week. Presents to office today w/ CT results and disc which show the following: Abnormal lobulated enhancement noted along the posterolateral margin of the tongue base on the right extending into the posterolateral and lateral aspect of th pharynx. Recommend further evaluation by ENT w/ direct visualization. Neoplasm not excluded. Pt requesting we refer him to ENT [facility]. Yusef: Will you sign referral order since [facility] is out? Denita Rai RN documented in this encounterUniversity Hospitals Portage Medical Center08-12-2024 Telephone encounter Note * Telephone Encounter - Estella Fish APRN.CNP - 03/01/2024 3:22 PM EDT It has been over 90 days since I saw Maren, he has missed appts. I cn give him 7 days worth of meds, but he needs to see me before I can prescribe more. [facility]08-12-2024 Miscellaneous Notes* Telephone Encounter - Estella Fish APRN.CNP - 03/01/2024 3:22 PM EDT It has been over 90 days since I saw Maren, he has missed appts. I cn give him 7 days worth of meds, but he needs to see me before I can prescribe more. * Telephone Encounter - Arianna Saha RN - 03/01/2024 3:14 PM EDT Last visit 11/21/23, needs follow up Patient phones requesting refills as follows: Requested Prescriptions Pending Prescriptions Disp Refills oxyCODONE IR (ROXICODONE) 10 mg tab 360 tablet 0 Sig: Take 1-2 tablets by mouth every 4 hours as needed for pain for up to 30 days. Please review and advise. Arianna Saha RN * Telephone Encounter - Get Hernandes - 03/01/2024 12:[address] [facility] is calling today regarding Refill Request Patient has been identified by name and birthdate. Requesting delivery method: call/escript to: Drug Lamar/ Iain Additional Concern: N/A Requesting response back: N/A [phone] (home) Get Escobar March 01, 2024 documented in this encounterUniversity [facility]08-12-2024 Telephone encounter Note * Telephone Encounter - Arianna Saha RN - 03/01/2024 3:14 PM EDT Last visit 11/21/23, needs follow up Patient phones requesting refills as follows: Requested Prescriptions Pending Prescriptions Disp Refills oxyCODONE IR (ROXICODONE) 10 mg tab 360 tablet 0 Sig: Take 1-2 tablets by mouth every 4 hours as needed for pain for up to 30 days. Please review and advise. Arianna Saha RN [facility]08-12-2024 Telephone encounter Note* Telephone Encounter - Get Hernandes - 03/01/2024 12:03 PM EDT Preston Parkruchi Gu is calling today regarding Refill Request Patient has been identified by name and birthdate. Requesting delivery method: call/escript to: Drug Lamar/ Iain Additional Concern: N/A Requesting response back: N/A [phone] (home) Get Escobar March 01, 2024 [facility]08-08-2024 Telephone encounter Note* Telephone Encounter - Bernadine Davis - 02/26/2024 10:16 AM EDT Spoke with Dr Douglas office he will be looking over his stuff today and then they will call patient to schedule [facility]08-07-2024 Telephone encounter Note* Telephone Encounter - Vanessa Carl - 02/25/2024 10:44 AM EDT Records faxed to Dr. Hayward. [facility]08-06-2024 Telephone encounter Note* Telephone Encounter - [place] Kearney - 02/24/2024 1:46 PM EDT Spoke to windows application packager at Dr Hayward's office at [phone] at [facility]. She needed the referral in order to get patient scheduled. Faxed referral order over to their office at [phone]. I will call the office back to check on status of appointment tomorrow or next day. MONA Hand [facility]08-06-2024 Telephone encounter Note* Telephone Encounter - Denita Rai RN - 02/24/2024 12:19 PM EDT Clerical: Please refer pt to ENT. Abnormal CT neck. Recommending scope. Pt would like seen JATINDER. Local or [facility]. Whichever can see him 1st. Denita Rai RN [facility]08-06-2024 Telephone encounter Note* Telephone Encounter - Denita Rai RN - 02/24/2024 11:55 AM EDT Pt was seen in the ER last week for c/o sore throat x 1 week. Presents to office today w/ CT results and disc which show the following: Abnormal lobulated enhancement noted along the posterolateral margin of the tongue base on the right extending into the posterolateral and lateral aspect of th pharynx. Recommend further evaluation by ENT w/ direct visualization. Neoplasm not excluded. Pt requesting we refer him to ENT JATINDER. Yusef: Will you sign referral order since BRM is out? Denita Rai RN [facility]08-02-2024 Telephone encounter Note* Telephone Encounter - Paty Chapman APRN.CNP - 02/20/2024 2:51 PM EDT PDMP website checked and validated. All prescriptions have been APPROPRIATELY filled. No suspiciousactivity was identified. 02/20/2024 by Paty Chapman APRN.RONAL [facility]08-02-2024 Miscellaneous Notes* Telephone Encounter - Paty Chapman APRN.CNP - 02/20/2024 2:51 PM EDT PDMP website checked and validated. All prescriptions have been APPROPRIATELY filled. No suspiciousactivity was identified. 02/20/2024 by Paty Chapman APRN.SOLAR PANEL TECHNICIAN * Telephone Encounter - Arianna Saha RN - 02/20/2024 1:44 PM EDT Tc spoke to Preston Parkurchi Rojoter, He feels his pain in his arm is worse. Not new pain. Pain where he had radiation worse as they day goes on. Medication review: Lyrica- 75mg TID- stopped taking- needs refill never called when ran out. Oxycodone 10-20mg [id number] PRN- 3x per day 2 tabs at time. No pain when wakes up medication helps. Denies need for refills. Fentanyl- 50mcg, ran out of medication needs refills. Discussed resuming medications will help with pain. Has visit with Christina Carpenter next week. Suggest to restart meds and follow up at scheduled visit. Agrees with plan. Provided office numbers and educated tocall when he needs refills. Patient phones requesting refills as follows: Requested Prescriptions Pending Prescriptions Disp Refills pregabalin (LYRICA) 75 mg capsule 90 capsule 0 Sig: Take 1 capsule by mouth three times a day for 30 days. fentaNYL (DURAGESIC) 50 mcg/hr 10 Patch 0 Sig: Apply 1 Patch as directed every 72 hours for 30 days. Do not cut patch. Please review and advise. Arianna Saha RN * Telephone Encounter - Yolande Bishop - 02/20/2024 11:04 AM EDT Preston Parkruchi Gu is calling today regarding Numbness and Med Change Request. Patient states he has been having numbness and tingling in his left arm and and hand for over a week. Patient also states that he would like to change his pain medication from the oxycodone. Patient states that the oxycodoneis not effective. Patient has been identified by name and birthdate. Requesting response back: call at home [phone] Yolande Bishop February 20, 2024 documented in this encounterUniversity Hospitals [facility] Center08-02-2024 Telephone encounter Note * Telephone Encounter - Arianna Saha RN - 02/20/2024 1:44 PM EDT Tc spoke to Preston Park Riccardo, He feels his pain in his arm is worse. Not new pain. Pain where he had radiation worse as they day goes on. Medication review: Lyrica- 75mg TID- stopped taking- needs refill never called when ran out. Oxycodone 10-20mg [id number] PRN- 3x per day 2 tabs at time. No pain when wakes up medication helps. Denies need for refills. Fentanyl- 50mcg, ran out of medication needs refills. Discussed resuming medications will help with pain. Has visit with Christina Carpenter next week. Suggest to restart meds and follow up at scheduled visit. Agrees with plan. Provided office numbers and educated tocall when he needs refills. Patient phones requesting refills as follows: Requested Prescriptions Pending Prescriptions Disp Refills pregabalin (LYRICA) 75 mg capsule 90 capsule 0 Sig: Take 1 capsule by mouth three times a day for 30 days. fentaNYL (DURAGESIC) 50 mcg/hr 10 Patch 0 Sig: Apply 1 Patch as directed every 72 hours for 30 days. Do not cut patch. Please review and advise. Arianna Saha RN [facility]08-02-2024 Telephone encounter Note* Telephone Encounter - Denita Rai RN - 02/20/2024 1:07 PM EDT Pt of Dr Grigsby's w/ NSCLC on [place]. States he used to have an inhaler at home, but it has been a couple years. Past records show he was using an albuterol inhaler in 2021. Believes it could have been prescribed by his PCP, but he is not sure. Pt has ongoing issues w/ SOB. Seeing pulmonary at the end of the month. Pt asks if we will refill his Albuterol INH to see if this will help some of hissymptoms. Param: Script pended. Will you approve since Dr Grigsby is out of the office? Denita Rai RN [facility]08-02-2024 Miscellaneous Notes* Telephone Encounter - Denita Rai RN - 02/20/2024 1:07 PM ED[address] Pt of Dr Grigsby's w/ NSCLC on [place]. States he used to have an inhaler at home, but it has been a couple years. Past records show he was using an albuterol inhaler in 2021. Believes it could have been prescribed by his PCP, but he is not sure. Pt has ongoing issues w/ SOB. Seeing pulmonary at the end of the month. Pt asks if we will refill his Albuterol INH to see if this will help some of hissymptoms. Param: Script pended. Will you approve since Dr Grigsby is out of the office? Denita Rai RN documented in this encounterUniversity Hospitals [facility]08-02-2024 Telephone encounter Note * Telephone Encounter - Yolande Bishop - 02/20/2024 11:[address] [facility] is calling today regarding Numbness and Med Change Request. Patient states he has been having numbness and tingling in his left arm and and hand for over a week. Patient also states that he would like to change his pain medication from the oxycodone. Patient states that the oxycodoneis not effective. Patient has been identified by name and birthdate. Requesting response back: call at home [phone] Yolande Bishop February 20, 2024 [facility]08-01-2024 Telephone encounter Note* Telephone Encounter - Rolanda Arrington - 02/19/2024 1:55 PM EDT Called [facility] office. Patient is scheduled to see Dr Beyer on 03/02 @ 10:30. Rolanda Lawrence [facility]08-01-2024 Miscellaneous Notes* Telephone Encounter - Rolanda Arrington - 02/19/2024 1:55 PM EDT Called [facility] office. Patient is scheduled to see Dr Beyer on 03/02 @ 10:30. Rolanda Lawrence * Telephone Encounter - Rolanda Arrington - 02/18/2024 1:22 PM EDT Called [facility] office spoke with Emperatriz. She states she will reach out to patient this afternoon to get scheduled. Rolanda Lawrence * Telephone Encounter - Enrique Boland - 02/09/2024 10:42 AM EDT Confirmed referral was received at Vascular. They are currently working on referral and going to call patient. * Telephone Encounter - Vanessa Carl - 02/05/2024 1:10 PM EDT Records re-faxed to [facility]. * Telephone Encounter - Rolanda Arrington - 02/05/2024 12:51 PM EDT Called [facility] office they have not received this referral and asked us to please refax it tothem. Tomasa: Please refax this referral. Thank You, Rolanda Lawrence * Telephone Encounter - Vanessa Carl - 02/04/2024 3:47 PM EDT Records faxed to [facility]. * Telephone Encounter - Yusef Pandya PA-C - 02/04/2024 2:10 PM EDT Order was already placed Yusef Pandya PA-C * Telephone Encounter - Bernadine Davis - 02/04/2024 2:05 PM EDT Please send records to [facility] joseph * Telephone Encounter - Denita Rai RN - 02/04/2024 1:36 PM EDT Pt notified and agrees to vascular consult. WILIAM/Yusef: Order for consult pended. Clerical: Pt would prefer to see a local physician. Please refer him to Dr Beyer/Dr Sanchez's group. Dx: Left arm swelling. Periodic cyanosis and pain. Denita Rai RN * Telephone Encounter - Denita aRi RN - 02/04/2024 9:02 AM EDT Call placed to pt. Message received stating the number has calling restrictions. Unable to leave a message. Denita Rai RN * Telephone Encounter - Yusef Pandya PA-C - 02/04/2024 8:10 AM EDT Please inform patient of results. He should likely see vascular due to the periodic cyanosis and pain and swelling to rule out any vascular issues. Yusef Pandya PA-C * Telephone Encounter - Denita Rai RN - 02/04/2024 7:59 AM EDT Yusef: US was negative for DVT or superficial thrombus. Report scanned. Denita Rai RN * Telephone Encounter - Vanessa Carl - 02/04/2024 7:56 AM EDT Report scanned. * Telephone Encounter - Denita Rai RN - 02/03/2024 4:33 PM EDT Tomasa: Please scan results when available. Thanks! Denita Rai RN * Telephone Encounter - Lisa Figueroa - 02/03/2024 12:13 PM EDT Patient will be going today to [place] for STAT US @ 2:00 pm. Lisa Figueroa documented in this encounterUniversity Hospitals [facility] Center07-31-2024 Telephone encounter Note * Telephone Encounter - Rolanda Arrington - 02/18/2024 1:22 PM EDT [facility] office spoke with Emperatriz. She states she will reach out to patient this afternoon to get scheduled. Rolanda Lawrence [facility]07-31-2024 Telephone encounter Note* Telephone Encounter - Denita Rai RN - 02/18/2024 11:44 AM EDT FYI: Pt reports that he had increased shortness of breath yesterday which improved after taking a couple Xanax. Pt's Xanax prescribed per his PCP. Advised he contact his PCP and request they adjust his Xanax dose. Pt verbalizes understanding and agrees. Pt reports his Percocet is no longer controlling his pain. Instructed pt to contact [facility] regarding his pain and medication. Pt confirms that he has pall med's phone number and agrees to contact the pall med RNCC. Denita Rai RN [facility] Work Phone: 1(760) 553-307207-31-2024 Miscellaneous Notes* Telephone Encounter - Denita Rai RN - 02/18/2024 11:44 AM EDT FYI: Pt reports that he had increased shortness of breath yesterday which improved after taking a couple Xanax. Pt's Xanax prescribed per his PCP. Advised he contact his PCP and request they adjust his Xanax dose. Pt verbalizes understanding and agrees. Pt reports his Percocet is no longer controlling his pain. Instructed pt to contact [facility] regarding his pain and medication. Pt confirms that he has pall med's phone number and agrees to contact the pall med RNCC. Denita Rai RN documented in this encounterUniversity Hospitals Portage Medical Center07-29-2024 Telephone encounter Note * Telephone Encounter - Nina Grigsby MD - 02/16/2024 4:59 PM EDT Agree the patient will need to be seen by pulmonary to determine the need and what type of home oxygen is indicated. [facility]07-29-2024 Miscellaneous Notes* Telephone Encounter - Nina Grigsby MD - 02/16/2024 4:59 PM EDT Agree the patient will need to be seen by pulmonary to determine the need and what type of home oxygen is indicated. * Telephone Encounter - Bernadine Rodriguez RN - 02/16/2024 1:27 PM EDT Pt calls stating he would like home oxygen because his breathing treatments and steroids aren't making much of a difference in his breathing. These were prescribed by his PCP. Pt is scheduled for pulm at [facility] but not until the end of February. Encouraged pt to contact PCP for home oxygen, as well as afollow up from recent hospital visit and previous steroid orders by them. Pt verbalized understanding and states that makes jade sense to him anyhow. Please advise if you have other recommendations. Bernadine Rodriguez RN documented in this encounterUniversity Hospitals Portage Medical Center07-29-2024 Telephone encounter Note * Telephone Encounter - Bernadine Rodriguez RN - 02/16/2024 1:27 PM EDT Pt calls stating he would like home oxygen because his breathing treatments and steroids aren't making much of a difference in his breathing. These were prescribed by his PCP. Pt is scheduled for pulm at [facility] but not until the end of February. Encouraged pt to contact PCP for home oxygen, as well as afollow up from recent hospital visit and previous steroid orders by them. Pt verbalized understanding and states that makes jade sense to him anyhow. Please advise if you have other recommendations. Bernadine Rodriguez RN [facility] Work Phone: [phone] Telephone encounter Note* Telephone Encounter - Enrique Boland - 02/16/2024 1:21 PM EDT Spoke to Pérez, gave him information on Pulmonogist appt in [place]. Transferred to Triage ( out of office) to ask about oxygen. [facility]07-29-2024 Miscellaneous Notes* Telephone Encounter - Enrique Boland - 02/16/2024 1:21 PM EDT Spoke to Pérez, gave him information on Pulmonogist appt in [place]. Transferred to Triage ( out of office) to ask about oxygen. * Telephone Encounter - [place] Kearney - 2024 8:42 AM EDT 3rd attempt to get a hold of patient to give date & time of appointment with [facility] Senior Clinical Consultant,however no answer & vm full. [place] Kearney * Telephone Encounter - [place] Kearney - 02/12/2024 2:17 PM EDT Tried calling patient again no answer & vm full. [place] K[place] * Telephone Encounter - [place] Kearney - 02/12/2024 10:29 AM EDT Tried calling patient to give date & time of supervisor grinding appointment no answer & vm full.Will try back later. [place] K[place] * Telephone Encounter - [place] Kearney - 02/12/2024 10:20 AM EDT Spoke to Ton at [facility] Pulmonology in [place] at [phone] & scheduled the soonest appointment in [facility] on 03/15/2024@[address] Lucas. [place] K[place] * Telephone Encounter - Denita Rai RN - 02/10/2024 1:39 PM EDT Pt would prefer to see [facility] Senior Clinical Consultant. Clerical: Please refer. Thanks! Denita Rai RN * Telephone Encounter - Nina Grigsby MD - 02/10/2024 1:38 PM EDT Order signed. Options would be Dr. Wilson at [facility] or Dr. Rene at [facility] Also we can refer him to [facility] pulmonary in [place]. * Telephone Encounter - Denita Rai RN - 02/10/2024 12:55 PM EDT Pt notified and verbalizes understanding. BRM: Pt asks if you will refer him to a supervisor grinding. Order pended if you approve. Denita Rai RN * Telephone Encounter - Nina Grigsby MD - 02/10/2024 11:50 AM EDT Agree with plan. Thanks, BRM * Telephone Encounter - Denita Rai RN - 02/10/2024 8:32 AM EDT Pt c/o increased shortness of breath x [...] Do you have any other recommendations? Denita Rai, RN documented in this encounterUniversity Hospitals Portage Medical Center07-26-2024 Telephone encounter Note * Telephone Encounter - [place] Kearney - 2024 8:42 AM EDT 3rd attempt to get a hold of patient to give date & time of appointment with [facility] Senior Clinical Consultant,however no answer & vm full. [place] Kearney [facility]07-25-2024 Telephone encounter Note* Telephone Encounter - [place] Kearney - 02/12/2024 2:17 PM EDT Tried calling patient again no answer & vm full. [place] Kearney [facility]07-25-2024 Telephone encounter Note* Telephone Encounter - [place] Kearney - 02/12/2024 10:29 AM EDT Tried calling patient to give date & time of supervisor grinding appointment no answer & vm full.Will try back later. [place] Kearney [facility]07-25-2024 Telephone encounter Note* Telephone Encounter - [place] Kearney - 02/12/2024 10:20 AM EDT Spoke to Ton at [facility] Pulmonology in [place] at [phone] & scheduled the soonest appointment in [facility] on 03/15/2024@[address] Lucas. [place] Kearney [facility]07-23-2024 Telephone encounter Note* Telephone Encounter - Denita Rai, KERRY - 02/10/2024 1:39 PM EDT Pt would prefer to see [facility] Senior Clinical Consultant. Clerical: Please refer. Thanks! Denita Rai RN [facility]07-23-2024 Telephone encounter Note* Telephone Encounter - Nina Grigsby MD - 02/10/2024 1:38 PM EDT Order signed. Options would be Dr. Wilson at [facility] or Dr. Rene at [facility] Also we can refer him to [facility] pulmonary in [place]. [facility]07-23-2024 Telephone encounter Note* Telephone Encounter - Denita Rai RN - 02/10/2024 12:55 PM EDT Pt notified and verbalizes understanding. BRM: Pt asks if you will refer him to a supervisor grinding. Order pended if you approve. Dneita Rai RN [facility]07-23-2024 Telephone encounter Note* Telephone Encounter - Nina Grigsby MD - 02/10/2024 11:50 AM EDT Agree with plan. Thanks, BRM [facility]07-23-2024 Telephone encounter Note* Telephone Encounter - Denita Rai RN - 02/10/2024 8:32 AM EDT Pt c/o increased shortness of breath x [...] Do you have any other recommendations? Denita Rai, RN [facility]07-22-2024 Telephone encounter Note* Telephone Encounter - Enrique Boland - 02/09/2024 10:42 AM EDT Confirmed referral was received at Vascular. They are currently working on referral and going to call patient. [facility]07-18-2024 Telephone encounter Note* [facility] 02/05/[facility] 1:10 PM EDT Records re-faxed to [facility]. [facility]07-18-2024 Telephone encounter Note* Telephone Encounter - Rolanda Arrington - 02/05/2024 12:51 PM EDT Called [facility] office they have not received this referral and asked us to please refax it tothem. Tomasa: Please refax this referral. Thank You, Rolanda Oneil Pss [facility]07-17-2024 Telephone encounter Note* Telephone Encounter - Vanessa Carl - 02/04/2024 3:47 PM EDT Records faxed to [facility]. [facility]07-17-2024 Telephone encounter Note* Telephone Encounter - Yusef Pandya PA-C - 02/04/2024 2:10 PM EDT Order was already placed Yusef Pandya PA-C [facility]07-17-2024 Telephone encounter Note* Telephone Encounter - Bernadine Davis - 02/04/2024 2:05 PM EDT Please send records to Erma ruiz [facility]07-17-2024 Telephone encounter Note* Telephone Encounter - Denita Rai RN - 02/04/2024 1:36 PM EDT Pt notified and agrees to vascular consult. WILIAM/Yusef: Order for consult pended. Clerical: Pt would prefer to see a local physician. Please refer him to Dr Beyer/Dr Sanchez's group. Dx: Left arm swelling. Periodic cyanosis and pain. Denita Rai RN [facility] Work Phone: [phone]) 137-224407-17-2024 Telephone encounter Note* Telephone Encounter - Denita Rai RN - 02/04/2024 9:02 AM EDT Call placed to pt. Message received stating the number has calling restrictions. Unable to leave a message. Denita Rai RN [facility]07-17-2024 Telephone encounter Note* Telephone Encounter - Yusef Pandya PA-C - 02/04/2024 8:10 AM EDT Please inform patient of results. He should likely see vascular due to the periodic cyanosis and pain and swelling to rule out any vascular issues. Yusef Pandya PA-C [facility]07-17-2024 Telephone encounter Note* Telephone Encounter - Denita Rai RN - 02/04/2024 7:59 AM EDT Yusef: US was negative for DVT or superficial thrombus. Report scanned. Denita Rai RN [facility]07-17-2024 Telephone encounter Note* Telephone Encounter - Cristel [facility] Vanessa Beatty - 02/04/2024 7:56 AM EDT Report scanned. [facility]07-16-2024 Telephone encounter Note* Telephone Encounter - Denita Rai RN - 02/03/2024 4:33 PM EDT Tomasa: Please scan results when available. Thanks! Denita Rai RN [facility]07-16-2024 Telephone encounter Note* Telephone Encounter - Lisa Figueroa - 02/03/2024 12:13 PM EDT Patient will be going today to [place] for STAT US @ 2:00 pm. Lisa Figueroa [facility]07-16-2024 History of Present illness Narrative* Yusef Pandya PA-C - 02/03/2024 11:30 AM EDT PATIENT NAME: Cristal Gu DATE: 02/03/2024 PRIMARY CARE PHYSICIAN: Dr. Christina Azul OTHER PHYSICIANS: Dr. Verito Whelan, Dr. Marianne Fields, Dr. Damon Tse ([facility]) Christina Tavarez (Elements copied from Dr. [...] in one nostril as needed for overdose. 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 PATHOLOGY: 10/21/2022 [id number] NGS analysis KRAS G12C mutation present, 5.2% [...] No hypermetabolic osseous lesions 01/03/2023 Chest CTA ([facility] [place]) Bilateral hilar soft tissue nodules concerning for [...] prior study, as above. 04/12/2022 Bone scan ([facility]) Degenerative findings. No evidence of metastatic disease. 05/23/2022 MRI Lumbar Spine Impression: Heterogeneous appearance of the vertebral bodies stable from the prior exam, nonspecific. No enhancing mass. Mild to moderate discogenic changes L2-S1 grossly stable. For minimal stenosis at several levels asdetailed. 10/31/2021 Brain MRI IMPRESSION: No evidence of [...] disease pembrolizumab was discontinued. The primary tumor NGSanalysis was positive for K-huong G12C mutation. For this reason it was elected to change treatment to targeted therapy with Lumakras. Treatment started 05/16/2023. Restaging PET scan 09/15/2023 significantly improved. For evaluation of increasing pain the patient underwent a repeat chest CT 10/21/2023 [facility] revealed slight growth of several pulm nodules, otherwise relatively stable. Repeat PET scan 11/25/2023 revealed several areas of slight progression, otherwise relatively stable. Palliative radiation to left chest wall 12/10/2023- 12/24/2023. Continued treatment with Lumakras recommended. On follow [...] in November 2023 and received 5 additional fra ctions of palliative radiation to the right oropharynx [...] uses Percocet as needed. Continue follow-up with [facility] palliative medicine. 7. Abnormal LFTs Labs from [...] will follow TFTs and adjust dosage accordingly. Yusef Pandya PA-C I spent a total of 30 minutes on the date of the service which included preparing to see the patient, [id number] patient care, completing clinical documentation, performing a medically appropriate examination, counseling and educating the patient/family/caregiver, ordering medications, tests, or p rocedures, independently interpreting results (not separately reported), communicating results to the patient/family/caregiver, and care coordination (not separately reported). documented in this encounterKayla [place]ille [id number] NoteMem[facility] System07-09-2024 Telephone encounter Note* Telephone Encounter - Yusef Pandya PA-C - 01/27/2024 4:27 PM EDT Lab orders placed Yusef Pandya PA-C' [facility]07-09-2024 Miscellaneous Notes* Telephone Encounter - Yusef Pandya PA-C - 01/27/2024 4:27 PM EDT Lab orders placed Yusef Pandya PA-C' * Telephone Encounter - Pavithra Jacinto MA - 01/27/2024 11:38 AM EDT Patient has an appt on 02/03/24. Would you like additional labs, if so place orders. Thanks. MICHOACANO Stephens documented in this encounterUniversity Hospitals [facility]07-09-2024 Telephone encounter Note * Telephone Encounter - Pavithra Jacinto MA - 01/27/2024 11:38 AM EDT Patient has an appt on 02/03/24. Would you like additional labs, if so place orders. Thanks. MICHOACANO Stephens [facility]06-25-2024 Telephone encounter Note* Telephone Encounter - Julieth Tapia RN - 01/13/2024 1:12 PM EDT Palliative Medicine Care Coordination Follow up Phone [...] hours and change every 3 days. Educated itshould help his pain improve when he gets [...] Tapia RN January 13, 2024 1:19 PM [facility]06-25-2024 Miscellaneous Notes* Telephone Encounter - Julieth Tapia RN - 01/13/2024 1:12 PM EDT Palliative Medicine Care Coordination Follow up Phone [...] hours and change every 3 days. Educated itshould help his pain improve when he gets [...] Tapia RN January 13, 2024 1:19 PM * Telephone Encounter - Hannah Ortiz - 01/13/2024 12:52 PM EDT Pérez calling regarding the fentanyl patches. He states that he hasn't used them, but states that the other medication is helping with the pain. He has to take the medication before he gets out of beddue to the pain. Patient needs clarification on pain regimen. Hannah SAMANIEGO documented in this encounterUniversity Hospitals Port[facility] Center06-25-2024 Telephone encounter Note * Telephone Encounter - Hannah Ortiz - 01/13/2024 12:52 PM EDT Pérez calling regarding the fentanyl patches. He states that he hasn't used them, but states that the other medication is helping with the pain. He has to take the medication before he gets out of beddue to the pain. Patient needs clarification on pain regimen. Hannah SAMANIEGO [facility]06-21-2024 Note* Addendum Note - Estella Fish APRN.CNP - 01/09/2024 2:09 PM EDTAddended by: ESTELLA FISH on: 01/09/2024 02:09 PM Modules accepted: Orders [facility]06-21-2024 Miscellaneous Notes* Addendum Note - Estella Fish APRN.CNP - 01/09/2024 2:09 PM EDTAddended by: ESTELLA FISH on: 01/09/2024 02:09 PM Modules accepted: Orders * Addendum Note - Julieth Tapia RN - 01/09/2024 1:20 PM EDTAddended by: JULIETH TAPIA on: 01/09/2024 01:20 PM Modules accepted: Orders * Telephone Encounter - Julieth Tapia RN - 01/09/2024 1:12 PM EDT Palliative Medicine Care Coordination Follow up Phone [...] Confirmed he would like it sent to [facility] pharmacy. Let him know it may need [...] by mouth daily at bedtime. Authorizing Provider: ESTELLA FISH Please review and advise. Julieth Tapia RN * Telephone Encounter - Estella Fish APRN.CNP - 01/09/2024 12:45 PM EDT Is he taking duloxetine? He could double the dose to 60 mg po daily if he has been using the 30 mg. We could add on a Transdermal Fentanyl patch, I would start at 50 mcg/ hr. He could still use oxy IR for BTP, my hope is he would not need as much and not have end of dose pain * Telephone Encounter - Julieth Tapia RN - 01/09/2024 11:34 AM EDT Palliative Medicine Care Coordination Follow up Phone [...] shoulder and right arm but says unable todescribe the pain. Still having some N/T in [...] Trazodone 50 mg tablets to his [facility] for insomnia. Let him know to take 1 tablet at bedtime. Educated he needs to ensure he is keeping an accurate pain log so Christina RONAL can make adjustment as needed. Let him know we would send to her to review his pain. Reinforced CURRENT treatment education based on current and anticipated symptoms Teach back method performed: YES Patient verbalizes when to seek medical attention for new/worsening symptoms. Office and on-call numbers reviewed with patient. Julieth Tapia RN January 09, 2024 11:47 AM * Telephone Encounter - Estella Fish APRN.CNP - 01/09/2024 11:27 AM EDT We can try Trazodone 50 mg at bedtime. Sent to [facility] in [place] * Telephone Encounter - Bernadine Rodriguez RN - 01/09/2024 10:39 AM EDT Pt calls stating he's been having problems sleeping and would like something for this. States I'vetried it all when asked if he's tried melatonin, tylenol pm, or benadryl. Please advise Bernadine Rodriguez RN documented in this encounterUniversity Hospitals Port[facility] Center06-21-2024 Note* Addendum Note - Julieth Tapia RN - 01/09/2024 1:20 PM EDTAddended by: JULIETH TAPIA on: 01/09/2024 01:20 PM Modules accepted: Orders [facility]06-21-2024 Telephone encounter Note* Telephone Encounter - Julieth Tapia RN - 01/09/2024 1:12 PM EDT Palliative Medicine Care Coordination Follow up Phone [...] Confirmed he would like it sent to [facility] pharmacy. Let him know it may need [...] by mouth daily at bedtime. Authorizing Provider: ESTELLA FISH Please review and advise. Julieth Tapia RN [facility]06-21-2024 Telephone encounter Note* Telephone Encounter - Estella Fish APRN.RONAL - 01/09/2024 12:45 PM EDT Is he taking duloxetine? He could double the dose to 60 mg po daily if he has been using the 30 mg. We could add on a Transdermal Fentanyl patch, I would start at 50 mcg/ hr. He could still use oxy IR for BTP, my hope is he would not need as much and not have end of dose pain [facility]06-21-2024 Telephone encounter Note* Telephone Encounter - Julieth Tapia RN - 01/09/2024 11:34 AM EDT Palliative Medicine Care Coordination Follow up Phone [...] shoulder and right arm but says unable todescribe the pain. Still having some N/T in [...] Trazodone 50 mg tablets to his [facility] for insomnia. Let him know to [...] Tapia RN January 09, 2024 11:47 AM [facility]06-21-2024 Telephone encounter Note* Telephone Encounter - Estella Fish APRN.RONAL - 01/09/2024 11:27 AM EDT We can try Trazodone 50 mg at bedtime. Sent to [facility] in [place] [facility]06-21-2024 Telephone encounter Note* Telephone Encounter - Bernadine Rodriguez RN - 01/09/2024 10:39 AM EDT Pt calls stating he's been having problems sleeping and would like something for this. States I'vetried it all when asked if he's tried melatonin, tylenol pm, or benadryl. Please advise Bernadine Rodriguez RN [facility] Work Phone: [phone]) 586-330306-07-2024 Telephone encounter Note* Telephone Encounter - Julieth Tapia RN - 12/26/2023 3:03 PM EDT Palliative Medicine Care Coordination Follow up Phone [...] having contact numbers for the office and saturation equipment operator. Julieth Tapia RN December 26, 2023 3:06 PM [facility]06-07-2024 Miscellaneous Notes* Telephone Encounter - Julieth Tapia RN - 12/26/2023 3:03 PM EDT Palliative Medicine Care Coordination Follow up Phone [...] having contact numbers for the office and saturation equipment operator. Julieth Tapia RN December 26, 2023 3:06 PM * Telephone Encounter - Yolande Bishop - 12/26/2023 1:21 PM EDT Preston Parkruchi Gu is calling today regarding Insurance Authorization for oxycodone. Patient states thepharmacy also told him he needs something else but he could not remember. Patient has been identified by name and birthdate. Requesting response back: N/A, no action needed [phone] (cell) Yolande Bishop December 26, 2023 documented in this encounterUniversity Hospitals Portage [facility] Center06-07-2024 Miscellaneous Notes* Telephone Encounter - Julieth Tapia RN - 12/26/2023 2:29 PM EDT Prior Authorization Documentation Prior authorization requested for: MEDICATION Oxycodone IR 10 mg tablets Submitted via Cover [employer] [id number] Insurance Company Name: [email or web address] Pharmacy Name: [facility] and Authorization approval #: AWAITING DETERMINATION Dates of Approval: from ? to ? Patient Assistance Needed: No Time Spent 10 Julieth Tapia RN December 26, 2023 documented in this encounterUniversity Hospitals Portage [facility] Center06-07-2024 Telephone encounter Note * Telephone Encounter - Julieth Tapia RN - 12/26/2023 2:29 PM EDT Prior Authorization Documentation Prior authorization requested for: MEDICATION Oxycodone IR 10 mg tablets Submitted via Cover [employer] [id number] Insurance Company Name: [email or web address] Pharmacy Name: [facility] and Authorization approval #: AWAITING DETERMINATION Dates of Approval: from ? to ? Patient Assistance Needed: No Time Spent 10 Julieth Tapia RN December 26, 2023 [facility]06-07-2024 Telephone encounter Note* Telephone Encounter - Julieth Tapia RN - 12/26/2023 1:49 PM EDT Prior Authorization Documentation Prior authorization requested for: MEDICATION Pregablin 75 mcg capsules Submitted via Cover [employer] [id number] Insurance Company Name: [employer] Pharmacy Name: [facility] and pproved today Your request has been approved Authorization Expiration Date: 12/26/2023- 07/20/2024. Pharmacy updated. Time Spent 10 Julieth Tapia RN December 26, 2023 [facility]06-07-2024 Miscellaneous Notes* Telephone Encounter - Julieth Tapia RN - 12/26/2023 1:49 PM EDT Prior Authorization Documentation Prior authorization requested for: MEDICATION Pregablin 75 mcg capsules Submitted via Cover [employer] [id number] Insurance Company Name: [employer] Pharmacy Name: [facility] and pproved today Your request has been approved Authorization Expiration Date: 12/26/2023- 07/20/2024. Pharmacy updated. Time Spent 10 Julieth Tapia RN December 26, 2023 documented in this encounterUniversity Hospitals Portage [facility] Center06-07-2024 Telephone encounter Note * Telephone Encounter - Yolande Bishop - 12/26/2023 1:21 PM EDT Cristal Gu is calling today regarding Insurance Authorization for oxycodone. Patient states thepharmacy also told him he needs something else but he could not remember. Patient has been identified by name and birthdate. Requesting response back: N/A, no action needed [phone] (cell) Yolande Bishop December 26, 2023 [facility]06-07-2024 Telephone encounter Note* Telephone Encounter - Julieth Tapia RN - 12/26/2023 12:32 PM EDT Palliative Medicine Care Coordination Follow up Phone Call Patient identified by name and : Yes Spoke to: patient Nurse calling to follow up on: Provider recommendations. Collaborated with Christina Fish CNP. We discussed to stop the Cymbalta since patient reported thatit caused worsening depression. Stop Gabapentin. Start Lyrica 75 mg capsule. Take 1 capsule 3 x daily routinely. Increase oxycodone IR 10 mg tablets taking 1-2 tablets(10-20 mg) every 4 hours as needed and continue steroids as recommended by oncology. Let patient know the prescription for Lyrica and Oxy were sent to his [facility] pharmacy. Nurse encouraged patient to call with any questions/concerns/symptom related issues. 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 [facility]06-07-2024 Miscellaneous Notes* Telephone Encounter - Julieth Tapia RN - 12/26/2023 12:32 PM EDT Palliative Medicine Care Coordination Follow up Phone Call Patient identified by name and : Yes Spoke to: patient Nurse calling to follow up on: Provider recommendations. Collaborated with Christina Fish CNP. We discussed to stop the Cymbalta since patient reported thatit caused worsening depression. Stop Gabapentin. Start Lyrica 75 mg capsule. Take 1 capsule 3 x daily routinely. Increase oxycodone IR 10 mg tablets taking 1-2 tablets(10-20 mg) every 4 hours as needed and continue steroids as recommended by oncology. Let patient know the prescription for Lyrica and Oxy were sent to his [facility] pharmacy. Nurse encouraged patient to call with any questions/concerns/symptom related issues. 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 * Addendum Note - Estella Fish APRN.CNP - 12/26/2023 12:23 PM EDT Addended by: ESTELLA FISH on: 12/26/2023 12:23 PM Modules accepted: Orders * Telephone Encounter - Estella Fish APRN.CNP - 12/26/2023 12:21 PM EDT He is due for refills I made some changes I sent them to his pharmacy - Stop Gabapentin - Start Lyrica 75 mg po tid - Start Duloxetine 30 mg po daily - during pain crisis he can use OXY IR 10-20 mg po every 4 hours - Agree with Dex * Telephone Encounter - Denita Rai RN - 12/26/2023 11:00 AM EDT Pt notified, verbalizes understanding, and states that he has plenty of dex at home. Denita Rai RN * Telephone Encounter - Denita Rai RN - 12/26/2023 10:59 AM EDT Images from the original note were not included. Jyoti Limon MD You5 minutes ago (10:53 AM) Yes seemed to work before. Thank.s * Telephone Encounter - Denita Rai RN - 12/26/2023 10:46 AM EDT Pt was originally on Dexamethasone 4 mg BID. Is this the dose you'd like him resume? Denita Rai RN * Telephone Encounter - Denita Rai RN - 12/26/2023 10:46 AM EDT Images from the original note were not included. Jyoti Limon MD You; [facility] Rad Nurse Pool4 minutes ago (10:41 AM) Consider reinitiating steroids. Radiation may have ongoing improvement with time. 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 * Telephone Encounter - Denita Rai RN - 12/26/2023 8:50 AM EDT JEROME: Please see Julieth's message below. Thank you! Denita Rai RN * Telephone Encounter - Julieth Tapia RN - 12/26/2023 8:19 AM EDT Care Coordination Triage Note [facility] Situation: Received page that patient called saying [...] only takes the edge off shortly before thepain increases. Patient asking for something more to [...] 26, 2023 8:19 AM documented in this encounterUniversity Hospitals Portage Medical Center06-07-2024 Note* Addendum Note - Estella Fish APRN.CNP - 12/26/2023 12:23 PM EDTAddended by: ESTELLA FISH on: 12/26/2023 12:23 PM Modules accepted: Orders [facility]06-07-2024 Telephone encounter Note* Telephone Encounter - Estella Fish APRN.CNP - 12/26/2023 12:21 PM EDT He is due for refills I made some changes I sent them to his pharmacy - Stop Gabapentin - Start Lyrica 75 mg po tid - Start Duloxetine 30 mg po daily - during pain crisis he can use OXY IR 10-20 mg po every 4 hours - Agree with Dex [facility]06-07-2024 Telephone encounter Note* Telephone Encounter - Denita Rai RN - 12/26/2023 11:00 AM EDT Pt notified, verbalizes understanding, and states that he has plenty of dex at home. Denita Rai RN [facility] Work Phone: [phone]) [phone] Telephone encounter Note* Telephone Encounter - Denita Rai RN - 12/26/2023 10:59 AM EDT Images from the original note were not included. Jyoti Limon MD You5 minutes ago (10:53 AM) Yes seemed to work before. Thank.s [facility]06-07-2024 Telephone encounter Note* Telephone Encounter - Denita Rai RN - 12/26/2023 10:46 AM EDT Pt was originally on Dexamethasone 4 mg BID. Is this the dose you'd like him resume? Denita Rai RN [facility]06-07-2024 Telephone encounter Note* Telephone Encounter - Denita Rai RN - 12/26/2023 10:46 AM EDT Images from the original note were not included. Jyoti Limon MD You; [facility] Rad Nurse Pool4 minutes ago (10:41 AM) Consider reinitiating steroids. Radiation may have ongoing improvement with time. 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 [facility]06-07-2024 Telephone encounter Note* Telephone Encounter - Denita Rai RN - 12/26/2023 8:50 AM EDT JEROME: Please see Julieth's message below. Thank you! Denita Rai RN [facility]06-07-2024 Telephone encounter Note* Telephone Encounter - Julieth Tapia RN - 12/26/2023 8:19 AM EDT Care Coordination Triage Note [facility] Situation: Received page that patient called saying [...] only takes the edge off shortly before thepain increases. Patient asking for something more to [...] depressed. Recommendations: Per Christina Fish CNP's recommendations. Julieht Tapia RN December 26, 2023 8:19 AM [facility]06-05-2024 Telephone encounter Note* Telephone Encounter - Denita Rai RN - 12/24/2023 2:03 PM EDT Pt notified of script. Denita Rai RN [facility] Work Phone: [phone] Miscellaneous Notes* Telephone Encounter - Denita Rai RN - 12/24/2023 2:03 PM EDT Pt notified of script. Denita Rai RN * Telephone Encounter - Denita Rai RN - 12/24/2023 11:34 AM EDT Patient phones requesting refills as follows: Requested Prescriptions Pending Prescriptions Disp Refills levothyroxine (SYNTHROID) 75 mcg tablet 30 tablet 1 Sig: Take 1 tablet by mouth once daily. Please review and advise. Denita Rai RN documented in this encounterUniversity Hospitals Portage Medical Center06-05-2024 Telephone encounter Note * Telephone Encounter - Denita Rai RN - 12/24/2023 11:34 AM EDT Patient phones requesting refills as follows: Requested Prescriptions Pending Prescriptions Disp Refills levothyroxine (SYNTHROID) 75 mcg tablet 30 tablet 1 Sig: Take 1 tablet by mouth once daily. Please review and advise. Denita Rai RN [facility]06-05-2024 History of Present illness Narrative* Jyoti Limon MD - 12/24/2023 12:00 AM EDT [facility] Radiation Oncology Department RADIATION ONCOLOGY - COMPLETION NOTE PATIENT: CRISTAL GUDOB: 1955 DATES OF TREATMENT: 12/10/2023 to 12/24/2023 DIAGNOSIS: Lung cancer, left upper lobe, pleomorphic carcinoma, stage IIb [id number], stage IIB AJCC 8th edition (chest wall invasion), PD-L1 95%, KRAS G12C mutation present AREA TREATED: Right Oropharynx [place] DELIVERED DOSE: Area: Right Oropharynx with daily CBCT Imaging 2000cGy in 5 fractions, 2 VMAT [facility], 6X AREA TREATED: Left Chest Wall [...] to complete treatment as intended without break interruptionor modification of prescription plan. The disease response will be assessed in clinic. The patient will be seen again in 2 weeks for post radiation follow-up. Staff Physician Erasto Limon M.D. / KG 43:38 PM Electronically Signed cc: Dr. Seb Falk , , , , . documented in this encounterUniversity Hospitals Portage Medical Center06-05-2024 NoteMemorial Health System06-03-2024 NoteMemorial Health System06-03-2024 History of Present illness Narrative* Nina Grigsby MD - 12/22/2023 10:26 PM EDT PATIENT NAME: Cristal Gu DATE: 12/23/2023 PRIMARY CARE PHYSICIAN: Dr. Christina Azul OTHER PHYSICIANS: Dr. Verito Whelan, Dr. Marianne Fields, Dr. 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 PATHOLOGY: 10/21/2022 [id number] NGS analysis KRAS G12C mutation present, 5.2% [...] No hypermetabolic osseous lesions 01/03/2023 Chest CTA ([facility]) Bilateral hilar soft tissue nodules concerning for [...] prior study, as above. 04/12/2022 Bone scan ([facility]) Degenerative findings. No evidence of metastatic disease. 05/23/2022 MRI Lumbar Spine Impression: Heterogeneous appearance of the vertebral bodies stable from the prior exam, nonspecific. No enhancing mass. Mild to moderate discogenic changes L2-S1 grossly stable. For minimal stenosis at several levels asdetailed. 10/31/2021 Brain MRI IMPRESSION: No evidence of [...] disease pembrolizumab was discontinued. The primary tumor NGSanalysis was positive for K-huong G12C mutation. For this reason it was elected to change treatment to targeted therapy with Lumakras. Treatment started 05/16/2023. Restaging PET scan 09/15/2023 significantly improved. For evaluation of increasing pain the patient underwent a repeat chest CT 10/21/2023 [facility] revealed slight growth of several pulm nodules, [...] tonsil. The patient was initially seen by [facility] on 07/26/2021, and clinical evaluation was most consistent with inflammatory/post-infectious findings. The patient was advised to stop chewing tobacco and continue close observation. Follow-up PET 05/12/2023 revealed significant increased size and metabolism of the right tonsillar mass. The patient was reevaluated by [facility] May 2023 and it was felt [...] uses Percocet as needed. Continue follow-up with [facility] palliative medicine. 7. Abnormal LFTs Labs from [...] will follow TFTs and adjust dosage accordingly. Nina Grigsby MD documented in this encounterUniversity Hospitals Portage Medical Center06-03-2024 NoteMemorial Health System06-03-2024 History of Present illness Narrative* Jyoti Limon MD - 12/22/2023 12:35 PM EDT Radiation Oncology - On Treatment Review (OTR) Note PATIENT NAME: Cristal Gu PATIENT DIAGNOSIS: Lung cancer, non-small cell [...] oriented x 3 appropriate, extremity strength intact horse race timer strength good Radiation dermatitis: No IMAGING/LAB RESULTS: None Treatment chart checked: Yes Patient treatment site reviewed and verified:Yes Port films reviewed and current:Yes Medications started: None ASSESSMENT/PLAN: Patient finishes this week. Conservative care for mucositis. Does appear tonsillarlesion has decreased in size however. He missed his Decadron yesterday so we will plan to start every other day taper for a week and then stop. Follow-up care discussed. Jyoti Limon MD documented in this encounterUniversity Hospitals Portage Medical Center05-29-2024 Telephone encounter Note * Telephone Encounter - WillieJulieth RN - 12/17/2023 8:28 AM EDT Palliative Medicine Care Coordination Follow up Phone [...] tablets twice daily. Educated he should be taking1 tablet every 4 hours prn. Educated to [...] it worked when on it twice daily atfirst but wore off. Patient will take 1 [...] Tapia RN December 17, 2023 9:03 AM [facility]05-29-2024 Miscellaneous Notes* Telephone Encounter - Julieth Tapia RN - 12/17/2023 8:28 AM EDT Palliative Medicine Care Coordination Follow up Phone [...] tablets twice daily. Educated he should be taking1 tablet every 4 hours prn. Educated to [...] it worked when on it twice daily atfirst but wore off. Patient will take 1 [...] Tapia RN December 17, 2023 9:03 AM * Telephone Encounter - Rosibel Wheeler LPN - 12/16/2023 4:03 PM EDT Maren was in for radiation therapy today [...] advise. Rosibel Wheeler RN documented in this encounterUniversity Hospitals Portage Medical Center05-28-2024 Telephone encounter Note * Telephone Encounter - Rosibel Wheeler LPN - 12/16/2023 4:03 PM EDT Maren was in for radiation therapy today and said he stopped taking duloxetine two to three days ago due to suicidal thoughts. Duloxetine was prescribed 5/3/24. He states he still has thoughts of [...] pain returns. Please advise. Rosibel Wheeler RN [facility]05-28-2024 NoteMemorial Health System05-28-2024 History of Present illness Narrative* Jyoti Limon MD - 12/16/2023 3:53 PM EDT Radiation Oncology - On Treatment Review (OTR) Note PATIENT NAME: Cristal Gu PATIENT DIAGNOSIS: Lung cancer, non-small cell [...] steroids. No other new issues. Feels off effectsrelated Cymbalta better since stopping. Denies suicidal ideation. EXAM: 12/16/23 1545 BP: 161/86 Pulse: 66 Resp: 16 Temp: 36.3 C (97.3 F) SpO2: 100% Weight: 54.2 kg (119 lb 7.8 oz) KPS: 80 General Appearance: Alert and oriented. No acute distress. Oral cavity decreased size right tonsillar mass Neuro alert and oriented x 3 appropriate, extremity strength intact horse race timer strength good Radiation dermatitis: No IMAGING/LAB RESULTS: None Treatment chart checked: Yes Patient treatment site reviewed and verified:Yes Port films reviewed and current:Yes Medications started: None ASSESSMENT/PLAN: Continue radiation. Continue follow-up with palliative for pain control. Will lower his Decadron from 4 mg twice daily to a dose of 4 mg daily. Jyoti Limon MD documented in this encounterUniversity Hospitals Portage Medical Center05-22-2024 NoteMemorial Health System05-22-2024 History of Present illness Narrative* Jyoti Limon MD - 12/10/2023 3:47 PM EDT Radiation Oncology - On Treatment Review (OTR) Note PATIENT NAME: Cristal Gu PATIENT DIAGNOSIS: Lung cancer, non-small cell [...] area. Initial imaging including cone beam ct andverification reviewed and approved for each area. First treatment given. Continue radiation as prescribed. Jyoti Limon MD documented in this encounterUniversity Hospitals Portage Medical Center05-20-2024 NoteHNO ID: [id number] Author: Jyoti LIMON MD Service: ? Author Type: Physician Type: Progress Notes Filed: 12/08/2023 10:05 Note Text: [facility]05-20-2024 History of Present illness Narrative* Jyoti Limon MD - 12/08/2023 10:04 AM EDT sim documented in this encounterUniversity Hospitals Portage Medical Center05-15-2024 Telephone encounter Note * Telephone Encounter - Rosibel WheelerSHUKRI - 12/03/2023 12:21 PM EDT FYI--Pérez was seen in consult by Dr. Buchanan yesterday. He was to have a [facility] for radiation therapy but was not able to lie flat for the [facility] due to pain in his left neck, shoulder, and upper chest. He is prescribed oxycodone IR 15mg si tablet every 4 hours prn. When he arrived yesterday he stated he took 2 tablets in the a.m. due to his pain and that it wasn't helping. 1300 oxycodone 15mg sig: take one tablet now per Dr. Limon. Patient states last dose of [id number] 2 tabs was at 0900. [facility] was rescheduled today and patient notified to take oxycodone as prescribed one hour prior to his appt today. When he arrived he told the nurse that roomed him he took 3 tablets of oxycodone priorto his appointment and brought an extra tablet [...] hours prn but took extra because he knewhe wouldn't be able to lay on his back for the [facility]. I confirmed that he is taking Neurontin 400mg TID. I told him he needs to contact Christina with [facility] if his pain medication is not effective. He said when he's at home resting his pain is controlled with what is prescribed. He said he is aware to call hCristina if needed for medication adjustment and has her phone number. He is scheduled to start radiation therapy 12/10/23. Thanks Rosibel Wheeler RN [facility]05-15-2024 Miscellaneous Notes* Telephone Encounter - Rosibel Wheeler LPN - 12/03/2023 12:21 PM EDT FYI--Péerz was seen in consult by Dr. Buchanan [...] Dr. Limon. Patient states last dose of [id number] 2 tabs was at 0900. SIM was rescheduled today and patient notified to take oxycodone as prescribed one hour prior to his appt today. When he arrived he told the nurse that roomed him he took 3 tablets of oxycodone priorto his appointment and brought an extra tablet [...] hours prn but took extra because he knewhe wouldn't be able to lay on his back for the SIM. I confirmed that he is taking Neurontin 400mg TID. I told him he needs to contact Christina with [facility] if his pain medication is not effective. He said when he's at home resting his pain is controlled with what is prescribed. He said he is aware to call Christina if needed for medication adjustment and has her phone number. He is scheduled to start radiation therapy 12/10/23. Thanks Rosibel Wheeler RN documented in this encounterUniversity Hospitals Portage Medical Center05-15-2024 History of Present illness Narrative* Jyoti Limon MD - 12/03/2023 12:00 AM EDT CRISTAL GU [id number] 12/03/2023 [facility] Radiation Oncology Department SIMULATION NOTE DATE OF SIMULATION: 12/03/2023 THERAPIST: Sapna Severino MACHINE: [employer] DIAGNOSIS: Malignant neoplasm of upper lobe, left [...] will be completed per nursing. Electronically Signed Erasto Limon M.D. / CDT 42:54 PM documented in this encounterUniversity Hospitals Portage Medical Center05-15-2024 History of Present illness Narrative* Jyoti Limon MD - 12/03/2023 12:00 AM EDT CRISTAL GU [id number] 12/03/2023 [facility] Department of Radiation Oncology Treatment Planning Note For reasons stated in the consult note, Cristal Gu is a candidate for radiation therapy. Based on review and interpretation of the relevant diagnostic studies together with the exam findings, Cristal Gu was simulated on 12/03/2023 at which time the target volume and/or requisite hall were d elineated, as indicated in the simulation note, to [...] using conventional or 3D planning. The specific doserequirements for the PTV, organs at risk and dose-volume histograms are contained in this treatmentplan and/or elsewhere in the medical record. A completed summary of this plan dated 12/09/2023 incorporated herein by reference includes dose, beam arrangements, energy, blocking, isodose distribution, and/or ports and DVH. Electronically Signed Erasto Limon M.D. 412:46 PM documented in this encounterUniversity Hospitals Portage Medical Center05-15-2024 NoteMemorial [facility] System05-15-2024 NoteMemorial [facility] System05-14-2024 NoteMemorial [facility] System05-14-2024 History of Present illness Narrative* Jyoti Limon MD - 12/02/2023 11:14 AM EDT Radiation Oncology - Follow Up Note PATIENT NAME: Cristal Gu PATIENT DIAGNOSIS: Lung cancer, left upper lobe, pleomorphic carcinoma, stage IIb [id number], stage IIB AJCC 8th edition (chest wall [...] oropharynx right greater than left. Lesion without significantenlargement on the right tonsil significant improvement compared to pretreatment ASSESSMENT/PLAN: Lung cancer, left upper lobe, pleomorphic carcinoma, stage IIb [id number], stage IIB AJCC 8th edition (chest wall invasion), PD-L1 95%, KRAS G12C mutation present Patient does appear to have regionally persistent disease including right tonsil, left upper chest wall area as well as within the lung. Discussed options including reirradiation of the left upper chest wall area. Discussed risk and benefits of treatment including potential brachial plexopathy fromradiation. Patient expressed understanding. Does not want to proceed. Will plan to use IMRT technique to minimize dose to the underlying brachial plexus. Will also plan to retreat his right tonsil with palliative dose of 20 Cooper in 5 fractions. Signed by: Jyoti Limon MD cc: Christina Azul [address] [place] [address] documented in this encounterUniversity Hospitals Portage Medical Center05-13-2024 NoteMemorial Health System05-13-2024 History of Present illness Narrative* Nina Grigsby MD - 12/01/2023 9:00 PM EDT PATIENT NAME: Cristal Gu DATE: 12/02/2023 PRIMARY CARE PHYSICIAN: Dr. Christina Azul OTHER PHYSICIANS: Dr. Verito Whelan, Dr. Marianne Fields, Dr. Damon Tse ([facility]) Dr. Limno, Christina Fish Portions of this encounter note [...] has had persistent pain over his left upperchest wall, now radiating down his left arm. 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 PATHOLOGY: 10/21/2022 [id number] NGS analysis KRAS G12C mutation present, 5.2% [...] No hypermetabolic osseous lesions 01/03/2023 Chest CTA ([facility]) Bilateral hilar soft tissue nodules concerning for [...] prior study, as above. 04/12/2022 Bone scan ([facility]) Degenerative findings. No evidence of metastatic disease. 05/23/2022 MRI Lumbar Spine Impression: Heterogeneous appearance of the vertebral bodies stable from the prior exam, nonspecific. No enhancing mass. Mild to moderate discogenic changes L2-S1 grossly stable. For minimal stenosis at several levels asdetailed. 10/31/2021 Brain MRI IMPRESSION: No evidence of [...] disease pembrolizumab was discontinued. The primary tumor NGSanalysis was positive for K-huong G12C mutation. For [...] +/- immunotherapy. He will also follow-up with [facility] palliative medicine to discuss more aggressive pain medications. 2. Carcinoma of the right tonsil Baseline PET and CT neck revealed suspicious abnormalities in the right tonsil. The patient was initially seen by [facility] on 07/26/2021, and clinical evaluation was most consistent with inflammatory/post-infectious findings. The patient was advised to stop chewing tobacco and continue close observation. Follow-up PET 05/12/2023 revealed significant increased size and metabolism of the right tonsillar mass. The patient was reevaluated by [facility] May 2023 and it was felt the mass was malignant. Recommendations were to proceed with palliative radiation therapy to the area. The patient received 5 fractions completed 06/24/2023. Most recent PET scan 11/25/2023 revealed increased uptake in the inv olved area. He will follow-up with radiation oncology [...] 2016. Currently stable. Continue management per PCP/cardiology. 5. [...] uses Percocet as needed. Continue follow-up with [facility] palliative medicine. 7. Abnormal LFTs Labs from [...] will follow TFTs and adjust dosage accordingly. Nina Grigsby MD documented in this encounterUniversity Hospitals Portage Medical Center05-07-2024 NoteMemorial Health System05-07-2024 History of Present illness Narrative* Deborah Warner RN - 11/25/2023 11:05 AM EDT Pt here for PET scan. States has not been eating or drinking much doesn't have an appetite and feels weak. Denies N/V/D. Dr. Grigsby aware and Whitney Rai RNCC updated. New orders for 1 L NS over 1 hr. Pt states understanding with POC. Deborah Warner RN documented in this encounterUniversity Hospitals Portage Medical Center05-07-2024 History of Present illness Narrative* Olga Lidia Rosas RN - 11/25/2023 11:00 AM EDTSummary: IRB [id number] Informed Consent CASE [id number] (IRB [id number]): Tissue and Body Fluid Analysis from Patients with Cancer and Other Risk- Associated Lesions Patient seen in clinic for informed consent of the above mentioned protocol. Patient agrees to participate in the above mentioned research study. The patient has signed a copy of the informed consent. Patient has contact information for the study team and Dr. Nina Grigsby M.D. See consent note in Epic. Olga Lidia Rosas, MSN, RN Clinical Research Nurse documented in this encounterUniversity Hospitals Portage Medical Center05-07-2024 NoteMemorial Health System05-07-2024 NoteMemorial Health System05-07-2024 NoteMemorial [facility] System05-06-2024 Telephone encounter Note* Telephone Encounter - Hannah Oglesby RN - 11/24/2023 9:47 AM EDT Please sign pended labs if agreeable-will draw with PET tomorrow. F/U with you 12/01 Thank You! Hannah Oglesby RN [facility]05-06-2024 Miscellaneous Notes* Telephone Encounter - Hannah Oglesby RN - 11/24/2023 9:47 AM EDT Please sign pended labs if agreeable-will draw with PET tomorrow. F/U with you 12/01 Thank You! Hannah Oglesby RN documented in this encounterCleveland [id number] Instructions* Patient Instructions* Etsella Fish APRN.CNP - 11/21/2023 10:25 AM EDT Estella Fish CNP Department of Palliative and Supportive Care Palliative Care - Specialty services in symptom management and support For questions or prescription refills, call: [phone] Friday - Friday 9AM-5PM LASHAY Evans, RN - Automatic Lathe Operator Please call 3-5 days in advance for medication refills Evenings, Weekends, Holidays: [phone] (ask for palliative medicine on-call provider) For appointments, cancellations or reschedule, call: [phone] documented in this encounterUniversity Hospitals Portage Medical Center05-03-2024 History of Present illness Narrative* Estella Fish APRN.CNP - 11/21/2023 10:00 AM EDT PALLIATIVE MEDICINE PROGRESS NOTE SERVICE DATE: 11/21/2023 CHIEF COMPLAINT: Pain PERTINENT MEDICAL HISTORY: Primary Site of Disease/Medical Illness: Lung Site of Metastasis: invasion of the visceral pleura and chest wall adipose tissue, arterial invasion present Anxiety, Centrilobular emphysema, CAD, PVD Subjective Complains of increased pain over his left upper chest wall radiating to left shoulder and down leftarm, Described as a mix of nocieptive and neuropathic pain. he underwent a repeat chest CT. This revealed slight growth of a few pulmonary nodules, but otherwise no significant change. 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 He has been [...] helpful for pain and anxiety. Modified ESAS ([place] Symptom Assessment Scale) Information Provided By: Patient [...] ear normal. Nose: Nose normal. Mouth/Throat: Lips: [place]. Mouth: Mucous membranes are moist. No oral [...] the underlying condition causing the pain been reviewed?Yes How much does pain impede patient s [...] All prescriptions have been APPROPRIATELY filled. No suspiciousactivity was identified. 11/21/2023 by Estella Fish, RACHEL, PLANOGRAPH OPERATOR.SOLAR PANEL TECHNICIAN Urine Screen Lab Results Component Value Date UAMPH Negative 09/26/2021 UBARB2 Negative 09/26/2021 UBENZ Negative 09/26/2021 UCOC2 Negative 09/26/2021 UOPI Negative 09/26/2021 UOXYC Negative 09/26/2021 UPCP Negative 09/26/2021 UTHC Negative 09/26/2021 UETOH <11 09/26/2021 Assessment & Plan (Z51.5) Palliative care by specialist (primary encounter diagnosis) - Reviewed philosophy of palliative medicine - Discussed services offered by Pall Med - Provided support -Discussed services offered by palliative medicine and how to contact us (C34.92) Primary malignant neoplasm of left lung metastatic [...] alcohol together, increases the risk of respiratory depressionwhich can lead to or permanent disability - [...] interested Next Visit: 6-8 Weeks in person Estella Fish NP, OZZIE.SOLAR PANEL TECHNICIAN November 21, 2023 9:44 AM This note may have been partially generated using the [employer] voice recognition system. While every effort was made to correct voice recognition errors, kindly be aware that some errors may occasionally occur. documented in this encounterUniversity Hospitals Portage Medical Center05-03-2024 NoteMemorial Health System04-23-2024 Telephone encounter Note* Telephone Encounter - Denita Rai RN - 11/11/2023 2:47 PM EDT Pt reports he lost his appointment reminder. Calls to verify his upcoming appointments. Informed ptof his appointment on 11/13 w/ Pall Med, CT on 11/24, and F/u w/ BRM on 12/01. Pt states he has a to go to this Friday. Requests to reschedule his Pall Med appointment. Call transferred to [facility], for scheduling. Denita Rai RN [facility] Work Phone: [phone] Miscellaneous Notes* Telephone Encounter - Denita Rai RN - 11/11/2023 2:47 PM EDT Pt reports he lost his appointment reminder. Calls to verify his upcoming appointments. Informed ptof his appointment on 11/13 w/ Pall Med, CT on 11/24, and F/u w/ [facility] on 12/01. Pt states he has a to go to this Friday. Requests to reschedule his Pall Med appointment. Call transferred to [facility], for scheduling. Denita Rai RN documented in this encounterUniversity Hospitals Portage Medical Center04-17-2024 Miscellaneous Notes* Telephone Encounter - Denita Rai RN - 11/05/2023 10:46 AM EDT 2nd call placed to pt. Message received noting that number has calling restrictions preventing the completion of this call. Denita Rai RN * Telephone Encounter - Denita Rai RN - 11/04/2023 3:46 PM EDT Voicemail message received from pt. Call placed to pt. No answer. Voicemail is full. Unable to leave a message. Denita Rai RN documented in this encounterCleveland [id number] Miscellaneous Notes* Telephone Encounter - Maricruz Lopes RN - 11/04/2023 1:06 PM EDT Pt aware of BR[facility] message. He is not taking any alternative cancer treatments, but does admit to daily alcohol intake. Pt is encouraged to modify/lessen alcohol consumption. Pt agreeable to POC. He denies any questions, needs or concerns at this time. Follow up appt verified. Maricruz Lopes RN [facility]: FYI * Telephone Encounter - Maricruz Lopes RN - 11/04/2023 1:06 PM EDT ----- Message from Nina Grigsby MD sent at 11/04/2023 1:00 PM EDT ----- Please inform the patient that his LFTs have increased again. Please verify that he is not taking any alternative cancer treatments and/or he is not drinking excessively. Calcium and kidney function are stable. documented in this encounterUniversity Hospitals Portage Medical Center04-16-2024 NoteMemorial Health System04-16-2024 History of Present illness Narrative* Dominique Murphy, OSCAR - 11/04/2023 10:36 AM EDT Oncology Nutrition Therapy Reassessment RECOMMENDED MALNUTRITION DIAGNOSIS: [...] diet such as recommendations from [employer] [place] [employer] focusing on lean proteins, whole grains, [...] but selects light beer. Discussed health implications ofexcessive alcohol consumption and how alcohol is a risk factor for cancer and other co-morbidities.Patient did not appear receptive and stated I [...] learning: None Educational materials provided: [employer] [place] [employer], Heart Healthy Plate Anthropometrics: Height: Last [...] Dosing Weight: 56.3 kg Estimated kilocalorie needs: 4810-8857 kilocalories determined by 30-35 kcal/kg Estimated protein needs: 56-84 grams determined by 1.0-1.5 g/kg Dosing weight Estimated fluid needs: ~8457-5998 milliliters based on 1 mL per kcal [...] Murphy MS, RDN, LD documented in this encounterUniversity Hospitals Portage Medical Center04-15-2024 NoteMemorial Health System04-15-2024 History of Present illness Narrative* Nina Grigsby MD - 11/03/2023 8:46 PM EDT PATIENT NAME: Cristal Gu DATE: 11/04/2023 PRIMARY CARE PHYSICIAN: Dr. Christina Azul OTHER PHYSICIANS: Dr. Verito Whelan, Dr. Marianne Fields, Dr. Damon Tse ([facility]) Dr. 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 PATHOLOGY: 10/21/2022 [id number] NGS analysis KRAS G12C mutation present, 5.2% [...] No hypermetabolic osseous lesions 01/03/2023 Chest CTA ([facility]) Bilateral hilar soft tissue nodules concerning for [...] prior study, as above. 04/12/2022 Bone scan ([facility]) Degenerative findings. No evidence of metastatic disease. 05/23/2022 MRI Lumbar Spine Impression: Heterogeneous appearance of the vertebral bodies stable from the prior exam, nonspecific. No enhancing mass. Mild to moderate discogenic changes L2-S1 grossly stable. For minimal stenosis at several levels asdetailed. 10/31/2021 Brain MRI IMPRESSION: No evidence of [...] disease pembrolizumab was discontinued. The primary tumor NGSanalysis was positive for K-huong G12C mutation. For [...] and PET scan in 3 weeks, return forfollow-up in 4 weeks. 2. Carcinoma of the right tonsil Baseline PET and CT neck revealed suspicious abnormalities in the right tonsil. The patient was initially seen by [facility] on 07/26/2021, and clinical evaluation was most consistent with inflammatory/post-infectious findings. The patient was advised to stop chewing tobacco and continue close observation. Follow-up PET 05/12/2023 revealed significant increased size and metabolism of the right tonsillar mass. The patient was reevaluated by [facility] May 2023 and it was felt [...] uses Percocet as needed. Continue follow-up with [facility] palliative medicine. 7. Abnormal LFTs Labs from [...] will follow TFTs and adjust dosage accordingly. Nina Grigsby MD documented in this encounterUniversity Hospitals Portage Medical Center04-02-2024 [facility]04-02-2024 [facility]04-02-2024 Miscellaneous Notes * Telephone Encounter - Estella Fish APRN.CNP - 10/21/2023 1:22 PM EDT Needs a face to face with me by 11/14/23 to continue controlled substance Rx. Looks like he already has an appointment scheduled. I refilled oxycodone to [facility] [place] * Telephone Encounter - Hannah Oglesby RN - 10/21/2023 11:10 AM EDT Pt here for CT-c/o extreme pain left side of chest Requesting additional pain medication. Stated not sure how many Percocets I have left at home documented in this encounterUniversity Hospitals Portage Medical Center04-01-2024 NoteMemorial Health System04-01-2024 History of Present illness Narrative* Nina Grigsby MD - 10/20/2023 5:22 AM EDT PATIENT NAME: Cristal Gu DATE: 10/20/2023 PRIMARY CARE PHYSICIAN: Dr. Christina Azul OTHER PHYSICIANS: Dr. Verito Whelan, Dr. Marianne Fields, Dr. Damon Tse ([facility]) Dr. 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 PATHOLOGY: 10/21/2022 [id number] NGS analysis KRAS G12C mutation present, 5.2% [...] No hypermetabolic osseous lesions 01/03/2023 Chest CTA ([facility]) Bilateral hilar soft tissue nodules concerning for [...] prior study, as above. 04/12/2022 Bone scan ([facility]) Degenerative findings. No evidence of metastatic disease. 05/23/2022 MRI Lumbar Spine Impression: Heterogeneous appearance of the vertebral bodies stable from the prior exam, nonspecific. No enhancing mass. Mild to moderate discogenic changes L2-S1 grossly stable. For minimal stenosis at several levels asdetailed. 10/31/2021 Brain MRI IMPRESSION: No evidence of [...] disease pembrolizumab was discontinued. The primary tumor NGSanalysis was positive for K-huong G12C mutation. For [...] have disease recurrence/progression we will need to [place] treatment to chemotherapy. 2. Carcinoma of the right tonsil Baseline PET and CT neck revealed suspicious abnormalities in the right tonsil. The patient was initially seen by [facility] on 07/26/2021, and clinical evaluation was most consistent with inflammatory/post-infectious findings. The patient was advised to stop chewing tobacco and continue close observation. Follow-up PET 05/12/2023 revealed significant increased size and metabolism of the right tonsillar mass. The patient was reevaluated by [facility] May 2023 and it was felt [...] 2015. Status post CABG x 4 in [place] 2015. Currently stable. Continue management per PCP/cardiology. [...] uses Percocet as needed. Continue follow-up with [facility] palliative medicine. 7. Abnormal LFTs Labs from [...] will follow TFTs and adjust dosage accordingly. Nina Grigsby MD documented in this encounterUniversity Hospitals Portage [facility] Center03-04-2024 NoteMemorial Health System03-04-2024 History of Present illness Narrative* Dominique Murphy RD - 09/22/2023 10:07 AM EST Oncology Nutrition Therapy Reassessment Patient left after office visit with physician and did not stay for scheduled dietitian appointment. Signed by: Dominique Murphy MS, RDN, LD documented in this encounterUniversity Hospitals Portage Medical Center03-04-2024 NoteMemorial Health System03-04-2024 History of Present illness Narrative* Nina Grigsby MD - 09/22/2023 5:35 AM EST PATIENT NAME: Cristal Gu DATE: 09/22/2023 PRIMARY CARE PHYSICIAN: Dr. Christina Azul OTHER PHYSICIANS: Dr. Verito Whelan, Dr. Marianne Fields, Dr. 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 PATHOLOGY: 10/21/2022 [id number] NGS analysis KRAS G12C mutation present, 5.2% [...] No hypermetabolic osseous lesions 01/03/2023 Chest CTA ([facility]) Bilateral hilar soft tissue nodules concerning for [...] prior study, as above. 04/12/2022 Bone scan ([facility]) Degenerative findings. No evidence of metastatic disease. 05/23/2022 MRI Lumbar Spine Impression: Heterogeneous appearance of the vertebral bodies stable from the prior exam, nonspecific. No enhancing mass. Mild to moderate discogenic changes L2-S1 grossly stable. For minimal stenosis at several levels asdetailed. 10/31/2021 Brain MRI IMPRESSION: No evidence of [...] disease pembrolizumab was discontinued. The primary tumor NGSanalysis was positive for K-huong G12C mutation. For this reason it was elected to change treatment to targeted therapy with Lumakras. Treatment started 05/16/2023. Currently the patient is clinically improved clinic with decreased pain and swelling at the area of metastases. Follow-up PET scan 024 significantly improved. At this time the patient will continue as is with Lumakras. Return in 4 weeks for follow-up. 2. Carcinoma of the right tonsil Baseline PET and CT neck revealed suspicious abnormalities in the right tonsil. The patient was initially seen by [facility] on 07/26/2021, and clinical evaluation was most consistent with inflammatory/post-infectious findings. The patient was advised to stop chewing tobacco and continue close observation. Follow-up PET 05/12/2023 revealed significant increased size and metabolism of the right tonsillar mass. The patient was reevaluated by [facility] May 2023 and it was felt [...] uses Percocet as needed. Continue follow-up with [facility] palliative medicine. 7. Abnormal LFTs Labs from [...] take daily to improve his overall wellbeing. Nina Grigsby MD documented in this encounterUniversity Hospitals Portage Medical Center02-26-2024 NoteMemorial Health System02-07-2024 Miscellaneous Notes* Telephone Encounter - Patricia Miller APRN.CNP - 08/27/2023 11:22 AM EST The following approved medication requests have been transmitted electronically. Requested Prescriptions Signed Prescriptions Disp Refills levothyroxine (SYNTHROID) 75 mcg tablet 30 tablet 1 Sig: Take 1 tablet by mouth once daily. Authorizing Provider: PATRICIA MILLER APRN.CNP * Telephone Encounter - Denita Rai RN - 08/27/2023 10:32 AM EST Pt notified and requests that a new prescription be sent to [facility] in [place]. WILIAM/Patricia: script pended. Denita Rai RN * Telephone Encounter - Denita Rai RN - 08/26/2023 4:25 PM EST Call placed to pt. No answer. Pt's voicemail is full. Unable to leave a message. Denita Rai RN * Telephone Encounter - Denita Rai RN - 08/26/2023 4:24 PM EST ----- Message from Nina Grigsby MD sent at 08/26/2023 4:06 PM EST ----- Please inform the patient that he needs to resume Synthroid at his previous dose of 75 mcg daily. We will repeat TFTs on return visit. documented in this encounterUniversity Hospitals Portage Medical Center02-05-2024 NoteMemorial Health System02-05-2024 History of Present illness Narrative* Nina Grigsby MD - 08/25/2023 6:17 AM EST PATIENT NAME: Cristal Gu DATE: 08/25/2023 PRIMARY CARE PHYSICIAN: Dr. Christina Azul OTHER PHYSICIANS: Dr. Verito Whelan, Dr. Marianne Fields, Dr. Damon Tse's ([facility]) Dr. Limon Portions of this encounter [...] in early July 2023. He subsequently developed anatypical rash over his left upper chest wall, left arm, and back. He appears to have developed a local skin infection in the area after using a metal icu specialist . With recent antibiotics his skin lesions are slowly improving. MEDICATIONS: Current Outpatient Medications Medication Sig methylPREDNISolone (MEDROL DOSE-PACK) 4 mg Dose-Pack Take by mouth as directed. Per package instructions azithromycin (ZITHROMAX) 250 mg tablet TAKE 2 TABLETS by mouth today, THEN take 1 TABLET once a dayFOR the next 4 DAYS. naloxone 4 mg/actuation nasal spray (NARCAN) Use 1 spray in one nostril as needed for overdose. Mayrepeat every 2 to 3 min in alternating [...] (HCC) Peripheral arterial disease (HCC) 2019 R LEAD BUSINESS ANALYST stent PAST SURGICAL HISTORY: PAST SURGICAL HISTORY Procedure Laterality Date BACK SURGERY HX 2019 CABG (4) VEIN GRAFTS & ARTERIAL GRAFT(S) 2016 LOWER EXTREMITY APPRAISAL COORDINATOR W/WO STENT Right 2019 right common femoral [...] involving face and upper back. PATHOLOGY: 10/21/2022 [id number] NGS analysis KRAS G12C mutation present, 5.2% [...] No hypermetabolic osseous lesions 01/03/2023 Chest CTA ([facility]) Bilateral hilar soft tissue nodules concerning for [...] prior study, as above. 04/12/2022 Bone scan ([facility]) Degenerative findings. No evidence of metastatic disease. 05/23/2022 MRI Lumbar Spine Impression: Heterogeneous appearance of the vertebral bodies stable from the prior exam, nonspecific. No enhancing mass. Mild to moderate discogenic changes L2-S1 grossly stable. For minimal stenosis at several levels asdetailed. 10/31/2021 Brain MRI IMPRESSION: No evidence of [...] disease pembrolizumab was discontinued. The primary tumor NGSanalysis was positive for K-huong G12C mutation. For [...] tonsil. The patient was initially seen by [facility] on 07/26/2021, and clinical evaluation was [...] therapy to the area. The patient received 5fractions completed 06/24/2023. Currently stable. He will follow-up with ENT and radiation oncology a s scheduled. 3. Centrilobular emphysema (HCC) - ICD9: [...] today and adjust his Synthroid dosage accordingly. Nina Grigsby MD documented in this encounterUniversity Hospitals Portage Medical Center01-26-2024 NoteMemorial Health System01-19-2024 NoteHNO ID: [id number] Author: ESTELLA FISH APRN.SOLAR PANEL TECHNICIAN Service: ? Author Type: Nurse Practitioner Type: Progress Notes Filed: 08/08/2023 13:54 Note Text: No showMemorial Health System01-08-2024 NoteMemorial Health System 06-30-2023 NoteMemorial Health System12-11-2023 History of Present illness Narrative* Nina Grigsby MD - 06/30/2023 7:59 AM EST PATIENT NAME: Cristal Gu DATE: 06/30/2023 PRIMARY CARE PHYSICIAN: Dr. Christina Azul OTHER PHYSICIANS: Dr. Verito Whelan, Dr. Marianne Fields, Dr. Damon Tse's ([facility]) Dr. Limon Portions of this encounter note have been copied from the note from 06/02/2023 and has been updatedwhere appropriate, and reflect my current medical decision making from today. CC: This is a 68 year old male with metastatic lung cancer, seen for scheduled follow-up and continued treatment. INTERIM HISTORY: Since the patient's last visit here he was reevaluated by [facility] on 05/27/2023. Itwas felt the right tonsillar mass was malignant, [...] no significant medical changes. He remains in [facility] for his metastatic lung cancer, and is tolerating the medication well. Since starting Lumykras his left chest wallpain has resolved and he has felt well overall. He has been able to stop all pain medications. MEDICATIONS: Current Outpatient Medications Medication Sig oxyCODONE IR (ROXICODONE) 5 mg immediate release tablet Take 1-2 tablets by mouth every 6 hours as needed for pain naloxone 4 mg/actuation nasal spray (NARCAN) Use 1 spray in one nostril as needed for overdose. Mayrepeat every 2 to 3 min in alternating [...] (HCC) Peripheral arterial disease (HCC) 2019 R LEAD BUSINESS ANALYST stent PAST SURGICAL HISTORY: PAST SURGICAL HISTORY Procedure Laterality Date BACK SURGERY HX 2019 CABG (4) VEIN GRAFTS & ARTERIAL GRAFT(S) 2016 LOWER EXTREMITY APPRAISAL COORDINATOR W/WO STENT Right 2019 right common femoral [...] involving face and upper back. PATHOLOGY: 10/21/2022 [id number] NGS analysis KRAS G12C mutation present, 5.2% [...] No hypermetabolic osseous lesions 01/03/2023 Chest CTA ([facility]) Bilateral hilar soft tissue nodules concerning for [...] prior study, as above. 04/12/2022 Bone scan ([facility]) Degenerative findings. No evidence of metastatic disease. 05/23/2022 MRI Lumbar Spine Impression: Heterogeneous appearance of the vertebral bodies stable from the prior exam, nonspecific. No enhancing mass. Mild to moderate discogenic changes L2-S1 grossly stable. For minimal stenosis at several levels asdetailed. 10/31/2021 Brain MRI IMPRESSION: No evidence of [...] disease pembrolizumab was discontinued. The primary tumor andNGS analysis was positive for K-huong G12C mutation. [...] tonsil. The patient was initially seen by [facility] on 07/26/2021, and clinical evaluation was [...] therapy to the area. The patient received 5fractions completed 06/24/2023. Currently stable. He will follow-up with ENT and radiation oncology a s scheduled. 3. Centrilobular emphysema (HCC) - ICD9: 492.8, ICD10: J43.2 Long history of tobacco abuse, quit September 2021. 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 4. Coronary artery disease Status post AMI 2015. Status post CABG x 4 in [place] 2016. Currently stable. Continue management per PCP/cardiology. 5. [...] monitor TFTs and adjust Synthroid dosage accordingly. Nina Grigsby MD documented in this encounterUniversity Hospitals Portage Medical Center12-11-2023 NoteMemorial Health System12-05-2023 NoteMemorial Health System12-04-2023 NoteMemorial Health System11-24-2023 Instructions* Patient Instructions* Estella Fish APRN.RONAL - 06/13/2023 9:54 AM EST Estella Fish CNP Department of Palliative and Supportive Care Palliative Care - Specialty services in symptom management and support For questions or prescription refills, call: [phone] Friday - Friday 9AM-5PM LASHAY Evans, RN - Automatic Lathe Operator Please call 3-5 days in advance for medication refills Evenings, Weekends, Holidays: [phone] (ask for palliative medicine on-call provider) For appointments, cancellations or reschedule, call: [phone] documented in this encounterUniversity Hospitals Portage Medical Center11-24-2023 History of Present illness Narrative* Estella Fish APRN.RONAL - 06/13/2023 9:30 AM EST PALLIATIVE MEDICINE PROGRESS NOTE SERVICE DATE: 06/13/2023 [...] has improved anxiety and sleep. Modified ESAS ([place] Symptom Assessment Scale) Information Provided By: Patient [...] Nose: Nose normal. No rhinorrhea. Mouth/Throat: Lips: [place]. Mouth: Mucous membranes are moist. No oral [...] the underlying condition causing the pain been reviewed?Yes How much does pain impede patient s [...] All prescriptions have been APPROPRIATELY filled. No suspiciousactivity was identified. 06/13/2023 by Estella Fish NP, PLANOGRAPH OPERATOR.SOLAR PANEL TECHNICIAN Assessment & Plan (Z51.5) Palliative care by specialist (primary encounter diagnosis) - Reviewed philosophy of palliative medicine - Discussed services offered by Pall Med - Provided support -Discussed services offered by palliative medicine and how to contact us (C34.92) Primary malignant neoplasm of left lung metastatic [...] alcohol together, increases the risk of respiratory depressionwhich can lead to or permanent disability - [...] interested Next Visit: 6-8 Weeks in person Estella Fish NP, PLANOGRAPH OPERATOR.SOLAR PANEL TECHNICIAN June 13, 2023 7:43 AM I spent a total of 35 minutes on the date of the service which included preparing to see the patient, [id number] patient care, completing clinical documentation, obtaining and/or reviewing separately obtained history, performing a medically appropriate examination, counseling and educating the pat ient/family/caregiver, ordering medications, tests, or procedures, communicating with other HCPs (not separately reported), and independently interpreting results (not separately reported). This note may have been partially generated using the [employer] voice recognition system. While every effort was made to correct voice recognition errors, kindly be aware that some errors may occasionally occur. documented in this encounterUniversity Hospitals Portage Medical Center11-24-2023 NoteMemorial Health System11-21-2023 History of Present illness Narrative* Jyoti Limon MD - 06/10/2023 12:00 AM EST CRISTAL GU [id number] 06/10/2023 [facility] Radiation Oncology Department SIMULATION NOTE DATE OF SIMULATION: 06/10/2023 THERAPIST: Sapna Severino MACHINE: [employer] DIAGNOSIS: C10 Malignant neoplasm of oropharynx AREA: [...] will be completed per nursing. Electronically Signed Erasto Limon M.D. / CDT 2:50 PM documented in this encounterUniversity Hospitals Portage Medical Center11-21-2023 History of Present illness Narrative* Jyoti Limon MD - 06/10/2023 12:00 AM EST RICCARDO CRISTAL [id number] 06/10/2023 [facility] Department of Radiation Oncology Treatment Planning Note For reasons stated in the consult note, Cristal Gu is a candidate for radiation therapy. Based on review and interpretation of the relevant diagnostic studies together with the exam findings, Cristal Gu was simulated on 06/10/2023 at which [...] using conventional or 3D planning. The specific doserequirements for the PTV, organs at risk and dose-volume histograms are contained in this treatmentplan and/or elsewhere in the medical record. A completed summary of this plan dated 06/17/2023 incorporated herein by reference includes dose, beam arrangements, energy, blocking, isodose distribution, and/or ports and DVH. Electronically Signed Erasto Limon M.D. 1:41 AM documented in this encounterUniversity Hospitals Portage Medical Center11-21-2023 NoteMemorial Health System11-21-2023 NoteMemorial Health System11-14-2023 Miscellaneous Notes * Telephone Encounter - Pavithra Jacinto MA - 06/03/2023 3:39 PM EST Opened for refill, refills not needed at this time. Pavithra Jacinto MA documented in this encounterUniversity Hospitals Portage Medical Center11-13-2023 NoteMemorial Health System11-13-2023 History of Present illness Narrative* Patricia Miller APRN.RONAL - 06/02/2023 2:53 PM EST PATIENT NAME: Cristal Gu DATE: 06/02/2023 PRIMARY CARE PHYSICIAN: Dr. Christina Azul OTHER PHYSICIANS: Dr. Verito Whelan, Dr. Marianne Fields, Dr. Limon Portions of this encounter note have been copied from the note from 05/13/2023 and has been updatedwhere appropriate, and reflect my current medical decision making from today. CC: This is a 68 year old male with metastatic lung cancer, seen for scheduled follow-up and continued treatment. INTERIM HISTORY: Cristal Gu returns for scheduled follow-up. He started the Lumakras on 05/16/2023. The pain he was having to his left upper chest wall radiating to his left shoulder and down hisleft arm has significantly improved since starting the Lumakras. He is tolerating the Lumakras welland denies any significant side effects. His hemoptysis [...] (HCC) Peripheral arterial disease (HCC) 2019 R LEAD BUSINESS ANALYST stent PAST SURGICAL HISTORY: PAST SURGICAL HISTORY Procedure Laterality Date BACK SURGERY HX 2019 CABG (4) VEIN GRAFTS & ARTERIAL GRAFT(S) 2016 LOWER EXTREMITY APPRAISAL COORDINATOR W/WO STENT Right 2019 right common femoral [...] involving face and upper back. PATHOLOGY: 10/21/2022 [id number] NGS analysis KRAS G12C mutation present, 5.2% [...] No hypermetabolic osseous lesions 01/03/2023 Chest CTA ([facility]) Bilateral hilar soft tissue nodules concerning for [...] prior study, as above. 04/12/2022 Bone scan ([facility]) Degenerative findings. No evidence of metastatic disease. 05/23/2022 MRI Lumbar Spine Impression: Heterogeneous appearance of the vertebral bodies stable from the prior exam, nonspecific. No enhancing mass. Mild to moderate discogenic changes L2-S1 grossly stable. For minimal stenosis at several levels asdetailed. 10/31/2021 Brain MRI IMPRESSION: No evidence of [...] tumor and recent NGS analysis was positive forK-huong G12C mutation. For this reason we elected to change treatment to targeted therapy with Lumakras. He started the Lumakras on 05/16/2023. The patient will continue Lumakras. He will follow-up with Dr. Limon for SIM and to begin radiation under the direction of Dr. Limon. We will plan to see the patient back in 4 weeks for follow-upand labs. If the patient does not tolerate [...] neck CT. The patient was seen by [facility] on 07/26/2021, and clinical evaluation most consistent with inflammatory/post-infectious findings. No suspicion for malignancy. The patient apparently chewed tobacco, and was advised to discontinue. Follow-up PET scan 05/12/2023 revealed significant increased size and metabolism of the right tonsillar mass. We will refer to [facility] for evaluation, most likely to include [...] monitor TFTs and adjust Synthroid dosage accordingly. Patricia Miller APRN.CNP I spent a total of 30 minutes on the date of the service which included preparing to see the patient, [id number] patient care, completing clinical documentation, obtaining and/or reviewing separately obtained history, performing a medically appropriate examination, counseling and educating the pat ient/family/caregiver, ordering medications, tests, or procedures, independently interpreting results (not separately reported), and communicating results to the patient/family/caregiver. documented in this encounterUniversity Hospitals Portage Medical Center11-10-2023 NoteMemorial Health System11-10-2023 History of Present illness Narrative* Jyoti Limon MD - 05/30/2023 11:16 AM EST Radiation Oncology - Follow Up Note PATIENT NAME: Cristal Gu PATIENT DIAGNOSIS: Lung cancer, left upper lobe, pleomorphic carcinoma, stage IIb [id number], stage IIB AJCC 8th edition (chest wall [...] by mouth every 6 hours as needed. (Patientnot taking: Reported on 05/27/2023) ondansetron (ZOFRAN) 8 [...] left upper lobe, pleomorphic carcinoma, stage IIb [id number], stage IIB AJCC 8th edition (chest wall [...] a significant clinical response to the new systemictherapy. We will plan to have him back for simulation in 2 to 3 weeks. We will discuss further withDr. Grigsby. Have discussed with Dr. Tse. Signed by: Jyoti Limon MD cc: Christina Azul [address] [place] [id number] documented in this encounterUniversity Hospitals Portage Medical Center11-07-2023 NoteMemorial Health System11-07-2023 History of Present illness Narrative* Damon Tse MD - 05/27/2023 1:41 PM EST Head and Neck Surgery Follow-up Note Patient: Cristal Gu Age: [age] year old Provider: Damon Tse MD Date of visit: 05/27/2023 Last Clinic Visit: 07/26/2021 Chief Complaint: Patient presents with: Follow Up: Pet scan results History of Present Illness: Cristal Gu is a 68 year old male with metastatic lung cancer (on systemic therapy), COPD, CAD, and ETOH abuse that presents for right tonsillar lesions. First noticed this a few months ago but was prescribed some antibiotics, which resolved the issue. It recurred approximately 2-3 weeks ago. This recurrence has not benefited from antibiotics. Patienthas been using mouthwash which has helped in [...] past medical history, past surgical history, medications, allergies,social history, and review of systems with the [...] by mouth every 6 hours as needed. (Patientnot taking: Reported on 05/27/2023) 300 mL 1 [...] midline, and mobile bilaterally. Floor of mouth issoft. Palate is intact and elevates symmetrically. Oropharynx: [...] of time for anesthesia/vasoconstriction to become effective, aflexible laryngoscope was passed through the L nasal passage. Findings: The nasal cavity and nasopharynx were normal. Enlarged R tonsillar mass visible. No othermasses or lesions were visualized at the base of tongue, vallecula, epiglottis, aryepiglottic folds, pyriform sinuses, and lateral pharyngeal nolasco. True vocal cord movement was intact bilaterally. The patient's airway was widely patent. ----- TPA ------ I was physically present during the entire procedure including insertion and removal of scope SIGNATURE: Damon Tse MD DATE of SERVICE: May 27, [...] ACTIVE PROBLEM LIST Coronary Artery Disease Involving [place] Coronary Artery of [place] Heart Without Angina Pectoris Centrilobular Emphysema (Hcc) Primary Hypertension Bilateral Carotid Artery Stenosis Malignant Neoplasm of Upper Lobe of Left Lung (Hcc) Postoperative Pain Alcohol Consumption of More Than Four Drinks Per Day Discharge Planning Issues Pad (Peripheral Artery Disease) (Hcc) Nicotine use disorder, F17.2 Protein-Calorie Malnutrition, Unspecified Severity (Hcc) Mr. Cristal Gu is a 68 year old male [...] Eb Quiroz MD for the service of Damon Tse MD TEACHING PHYSICIAN ADDENDUM: This patient was seen and examined with the resident/ fellow. The encounter diagnosis was Tonsillar mass. We discussed the diagnosis, treatment options, and plan of care.The above note reflects the entirety of evaluation [...] Decision Making Level: 5 - High SIGNATURE: Damon Tse MD DATE of SERVICE: May 27, 2023 TIME of SERVICE: 1:41 PM documented in this encounterUniversity Hospitals Portage Medical Center11-07-2023 Nurse Note* Radha Hunter CT - 05/27/2023 1:31 PM EST Tobacco Use: 2 packs/day, for 50 years. Types: Cigarettes Was smoking cessation packet given? Patient Declined Was a referral initiated?Patient declined. documented in this encounterUniversity Hospitals Portage [facility] Miscellaneous Notes* Telephone Encounter - Denita Rai RN - 05/20/2023 1:49 PM EDT Patient started/will start taking Sotorasib on 05/14/23. Denita Rai RN documented in this encounterUniversity Hospitals Portage Medical Center10-31-2023 Miscellaneous Notes* Telephone Encounter - Denita Rai RN - 05/20/2023 1:43 PM EDT ORAL ANTI-CANCER AGENTS FOLLOW-UP PHONE CALL/VISIT Patient [...] w/ any questions or concerns and was scheduledNA The following lab tests are due: CBC, [...] comply. Denita Rai RN documented in this encounterUniversity Hospitals Portage Medical Center10-31-2023 History of Present illness Narrative* Denita Rai RN - 05/20/2023 1:29 PM EDT ORAL ANTI-CANCER AGENTS EDUCATION patient here today [...] adult education handout and neutropenic wallet card YesChemocare education provided. Pt has neutropenic wallet card from prior therapy. EVALUATE: The patient demonstrated an understanding of all the above education using the teach-back method. Yes Instructed to call us with any questions, concerns, and/or unresolved symptoms. Will continue to follow up and provide reinforcement of teaching topics as needed. Denita Rai RN documented in this encounterUniversity Hospitals Portage Medical Center10-31-2023 [facility]Mem[facility]10-30-2023 Miscellaneous Notes* Telephone Encounter - Denita Rai RN - 05/19/2023 9:40 AM EDT Pt notified of script. Denita Rai RN * Telephone Encounter - Patricia Miller APRN.RONAL - 05/19/2023 9:19 AM EDT The following approved medication requests have been transmitted electronically. Requested Prescriptions Signed Prescriptions Disp Refills amoxicillin-clavulanate potassium (AUGMENTIN) 875-125 mg per tablet 14 tablet 0 Sig: Take 1 tablet by mouth two times a day for 7 days. Authorizing Provider: PATRICIA MILLER APRN.RONAL * Telephone Encounter - Denita Rai RN - 05/19/2023 8:[address] Grigsby, Augmentin BID x 10 days. WILIAM/Patricia: Script pended. Denita Rai RN * Telephone Encounter - Nina Grigsby MD - 05/19/2023 8:21 AM EDT Would suggest a different antibiotic with Augmentin 875 twice daily for suspected infection until seen by ENT * Telephone Encounter - Denita Rai RN - 05/19/2023 8:09 AM EDT Pt c/o severe throat pain. States that it is so sore that it is bleeding. Denies fevers. Has beenrinsing and swallowing MMW w/ minimal relief. Pt was prescribed a Zpack on 05/08 for similar complaints. States that it helped, but the symptoms returned a few days later. Pt has an appointment w/ the ENT on for his tonsilar mass. What do you advise until then? Denita Rai RN documented in this encounterUniversity Hospitals Portage Medical Center10-27-2023 Instructions* Patient Instructions* Estella Fish APRN.CNP - 05/16/2023 9:13 AM EDT Estella Fish CNP Department of Palliative and Supportive Care Palliative Care - Specialty services in symptom management and support For questions or prescription refills, call: [phone] Friday - Friday 9AM-5PM LASHAY Evans, RN - Automatic Lathe Operator Please call 3-5 days in advance for medication refills Evenings, Weekends, Holidays: [phone] (ask for palliative medicine on-call provider) For appointments, cancellations or reschedule, call: [phone] documented in this encounterUniversity Hospitals Portage Medical Center10-27-2023 [facility]10-27-2023 History of Present illness Narrative* Estella Fish APRN.CNP - 05/16/2023 8:56 AM EDT PALLIATIVE MEDICINE PROGRESS NOTE SERVICE DATE: 05/16/2023 [...] or sertraline, not sure why. Modified ESAS ([place] Symptom Assessment Scale) Information Provided By: Patient [...] ear normal. Nose: Nose normal. Mouth/Throat: Lips: [place]. Mouth: Mucous membranes are moist. No oral [...] the underlying condition causing the pain been reviewed?Yes How much does pain impede patient s [...] All prescriptions have been APPROPRIATELY filled. No suspiciousactivity was identified. 05/16/2023 by Estella Fish SALESFORCE TRAINER, PLANOGRAPH OPERATOR.SOLAR PANEL TECHNICIAN Urine Screen Lab Results Component Value Date UAMPH Negative 09/26/2021 UBARB2 Negative 09/26/2021 UBENZ Negative 09/26/2021 UCOC2 Negative 09/26/2021 UOPI Negative 09/26/2021 UOXYC Negative 09/26/2021 UPCP Negative 09/26/2021 UTHC Negative 09/26/2021 UETOH <11 09/26/2021 Assessment & Plan (Z51.5) Palliative care by specialist (primary encounter diagnosis) - Reviewed philosophy of palliative medicine - Discussed services offered by [facility] - Provided support -Discussed services offered by palliative medicine and how to contact us (D82.10) Primary malignant neoplasm of left lung metastatic [...] alcohol together, increases the risk of respiratory depressionwhich can lead to or permanent disability -Start [...] which included preparing to see the patient, [id number] patient care, completing clinical documentation, obtaining and/or reviewing separately obtained history, performing a medically appropriate examination, counseling and educating the pat ient/family/caregiver, ordering medications, tests, or procedures, and independently interpreting results (not separately reported). Existence of Advance Directives: No - not interested Next Visit: 4 Weeks in person Estella Fish NP, OZZIE.RONAL May 16, 2023 8:56 AM This note may have been partially generated using the Affib[employer] voice recognition system. While every effort was made to correct voice recognition errors, kindly be aware that some errors may occasionally occur. documented in this encounterUniversity Hospitals Portage Medical Center10-26-2023 Miscellaneous Notes* Telephone Encounter - Patricia Miller APRN.CNP - 05/15/2023 12:57 PM EDT Signed. Patricia Miller APRN.CNP * Telephone Encounter - Denita Rai RN - 05/15/2023 12:48 PM EDT Pt calls requesting gabapentin for his shoulder pain. Has been taking the oxycodone w/ only minimalrelief. States that in the past we had prescribed him gabapentin which he took in addition to the oxycodone. Notes that that combination worked for him. Pt also c/o constipation from the oxycodone. States that he manually extracted stool from his rectum this morning. Has not taken any OTC laxativesor softeners. Went today and bought Miralax and softeners that he plans to start today. Offered pt an appointment w/ Pall Med to address his pain and constipation. Pt agrees. Will be seeing Christina tomorrow @ 830 AM. Pt aware of the appointment. WILIAM/Patricia: Pall Med order pended. Christina: MARIA L.... Denita Rai RN documented in this encounterUniversity Hospitals Portage Medical Center10-26-2023 Miscellaneous Notes* Telephone Encounter - Patricia Miller APRN.CNP - 05/15/2023 12:56 PM EDT The following approved medication requests have been transmitted electronically. Requested Prescriptions Signed Prescriptions Disp Refills levothyroxine (SYNTHROID) 75 mcg tablet 30 tablet 1 Sig: Take 1 tablet by mouth once daily. Authorizing Provider: PATRICIA MILLER APRN.CNP * Telephone Encounter - Patricia Miller APRN.CNP - 05/15/2023 12:55 PM EDT Signed. Patricia Miller APRN.RONAL * Telephone Encounter - Denita Rai RN - 05/15/2023 12:36 PM EDT Pt notified and confirms that he has been taking his levothyroxine daily as prescribed. WILIAM/Patricia: New script pended. Denita Rai RN * Telephone Encounter - Denita Rai RN - 05/15/2023 12:21 PM EDT Call placed to pt. No answer. Voicemail is full. Unable to leave a message. Denita Rai RN * Telephone Encounter - Denita Rai RN - 05/15/2023 12:20 PM EDT ----- Message from Nina Grigsby MD sent at 05/14/2023 5:28 PM EDT ----- Please inform the patient that his TSH is still high at 47. Recommend we increase the Synthroid to 75 mcg. Jeannie, Pauline documented in this encounterUniversity Hospitals Portage Medical Center10-24-2023 Miscellaneous Notes* Telephone Encounter - Denita Rai RN - 05/13/2023 3:[address] Grigsby, treatment plan will be changing to Lumakras. Script sent to [facility] pharmacy. Denita Rai RN * Telephone Encounter - Analisa Stacy RPh - 05/13/2023 12:05 PM EDT Added future plan of pembrolizumab, carboplatin, and paclitaxel for after today's dose of pembrolizumab. (Was not certain if you were going to go ahead with today's dose or not.) Joes Stacy, PharmD, BCOP Whitney: MARIA L Stacy, PharmD, BCOP documented in this encounterUniversity Hospitals Portage Medical Center10-24-2023 NoteMemorial Health System10-23-2023 NoteMemorial Health System10-23-2023 NoteMemorial Health System10-19-2023 Miscellaneous Notes* Telephone Encounter - Denita Rai RN - 05/08/2023 2:26 PM EDT Pt notified of scripts and verbalizes understanding. Disposition: per Patricia Miller NP, patient directed to: [facility] at home. Provided instructions and will call back. Denita Rai RN * Telephone Encounter - Patricia Miller APRN.CNP - 05/08/2023 2:01 PM EDT The following approved medication requests have been transmitted electronically. Requested Prescriptions Signed Prescriptions Disp Refills diphenhydrAMINE 12.5 mg/5 mL lidocaine visc 2% MAALOX 200-200-20 mg/5 mL nystatin prednisoLONE 15 mg/5 mL oral liquid 1:1:1:1:1 (CPD) 250 mL 1 Sig: Take 5 mL by mouth every 6 hours as needed. Swish and Swallow Authorizing Provider: PATRICIA MILLER azithromycin (ZITHROMAX Z-DAVID) 250 mg tablet 6 tablet 0 Sig: Take two (2) tablets by mouth the first day and then one (1) tablet daily for 4 days. Authorizing Provider: PATRICIA MILLER APRN.SOLAR PANEL TECHNICIAN * Telephone Encounter - Denita Rai RN - 05/08/2023 1:43 PM EDT Pt c/o a sore throat. States that he has one white sore in the back of his throat. Denies fevers orchills. Had similar symptoms back in December. We prescribed MMW and Zpack at that time. Pt asks if youwill write for both of those again. Script pended if you agree. Denita Rai RN documented in this encounterUniversity Hospitals Portage Medical Center10-16-2023 Miscellaneous Notes* Telephone Encounter - Analisa Stacy RPh - 05/05/2023 3:58 PM EDT Next appt and labs 05/13/23. Jose Stacy, MoeD, BCOP documented in this encounterUniversity Hospitals Portage Medical Center10-04-2023 Miscellaneous Notes* Telephone Encounter - Patricia Miller APRN.CNP - 04/23/2023 1:59 PM EDT The following approved medication requests have been transmitted electronically. Requested Prescriptions Signed Prescriptions Disp Refills levothyroxine (SYNTHROID) 50 mcg tablet 30 tablet 0 Sig: Take 1 tablet by mouth once daily. Authorizing Provider: PATRICIA MILLER APRN.RONAL * Telephone Encounter - Denita Rai RN - 04/23/2023 11:52 AM EDT Images from the original note were not included. 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 Please start Synthroid 50 mcg daily. We will repeat TFTs on return visit in 3 weeks. Pt notified and verbalizes understanding. WILIAM/Patricia: Script pended. Denita Rai RN documented in this encounterUniversity Hospitals Portage Medical Center10-03-2023 NoteMemorial Health System09-19-2023 Miscellaneous Notes* Telephone Encounter - Denita Rai RN - 04/08/2023 4:11 PM EDT Pt notified and verbalizes understanding. Denita Rai RN * Telephone Encounter - Nina Grigsby MD - 04/08/2023 4:08 PM EDT Okay to get COVID booster. * Telephone Encounter - Denita Rai RN - 04/08/2023 2:52 PM EDT Pt would like to get the latest Covid booster. Any objections? Denita Rai RN documented in this encounterUniversity Hospitals Portage Medical Center09-12-2023 NoteMemorial Health System09-12-2023 History of Present illness Narrative* Ania Peters RN - 04/01/2023 1:36 PM EDT Potassium 3.3 reviewed with Raimundo Miller CNP. She would like pt to get K 20 meq IV x1 dose today andwill send a script for oral K to his pharmacy. Pt and tx nurse informed. Ania Peters RN documented in this encounterUniversity Hospitals Portage Medical Center09-12-2023 NoteMemorial Health System09-12-2023 Nurse Note* Yani Singer - 04/01/2023 12:51 PM EDT Patient states he has been coughing up a lot of stuff. Coughing up more blood then usual. documented in this encounterUniversity Hospitals Portage Medical Center09-12-2023 NoteMemorial Health System09-12-2023 History of Present illness Narrative* Patricia Miller APRN.RONAL - 04/01/2023 12:46 PM EDT PATIENT NAME: Cristal Gu DATE: 04/01/2023 PRIMARY CARE PHYSICIAN: Dr. [...] scheduled follow-up and continued treatment. INTERIM HISTORY: Cristal Gu returns for follow-up and continued treatment. He remains on pembrolizumab every 3 weeks and overall is tolerating it well. He completed the Z-David. He continues to have hemoptysis which was worse today. He states that he was working on his car lying on the ground over the weekend which he feels contributed to the worsening hemoptysis. He saw his PCP and was startedon Flomax. He was told he is coughing [...] nebu Inhale 3 mL as instructed every 6hours as needed for wheezing/shortness of breath. 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 PATHOLOGY: 10/21/2022 [id number] NGS analysis KRAS G12C mutation present, 5.2% [...] No hypermetabolic osseous lesions 01/03/2023 Chest CTA ([facility]) Bilateral hilar soft tissue nodules concerning for [...] prior study, as above. 04/12/2022 Bone scan ([facility]) Degenerative findings. No evidence of metastatic disease. 05/23/2022 MRI Lumbar Spine Impression: Heterogeneous appearance of the vertebral bodies stable from the prior exam, nonspecific. No enhancing mass. Mild to moderate discogenic changes L2-S1 grossly stable. For minimal stenosis at several levels asdetailed. 10/31/2021 Brain MRI IMPRESSION: No evidence of [...] 3 weeks was continued. Clinically the patient isminimally symptomatic. We will continue as planned with pembrolizumab and he will receive treatment today. He'll return in3 weeks for follow-up. Due to his persistent [...] neck CT. The patient was seen by [facility] on 07/26/2021, and clinical evaluation most consistent with inflammatory/post-infectious findings. No suspicion for malignancy. The patient apparently chews tobacco, and was advised to discontinue.He will follow- up with ENT as indicated. 6. Cancer related pain Severe pain left upper chest wall since August 2022. Currently on Percocet and gabapentin with moderate relief. Will consider referral to [facility] palliative medicine if symptoms persist. 7. Abnormal [...] atypical allergic reaction versus viral syndrome. Improved. Patricia Miller APRN.RONAL I spent a total of 30 minutes on the date of the service which included preparing to see the patient, [id number] patient care, completing clinical documentation, obtaining and/or reviewing separately obtained history, performing a medically appropriate examination, counseling and educating the pat ient/family/caregiver, ordering medications, tests, or procedures, independently interpreting results (not separately reported), and communicating results to the patient/family/caregiver. documented in this encounterUniversity Hospitals Portage Medical Center08-22-2023 History of Present illness Narrative* Nina Grigsby MD - 03/11/2023 7:13 AM EDT PATIENT NAME: Cristal Gu DATE: 03/11/2023 PRIMARY CARE PHYSICIAN: Dr. [...] his arms and hands, neck, and lips. Hewas seen at the emergency room and given [...] nebu Inhale 3 mL as instructed every 6hours as needed for wheezing/shortness of breath. 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 PATHOLOGY: 10/21/2022 [id number] NGS analysis KRAS G12C mutation present, 5.2% [...] No hypermetabolic osseous lesions 01/03/2023 Chest CTA ([facility]) Bilateral hilar soft tissue nodules concerning for [...] prior study, as above. 04/12/2022 Bone scan ([facility]) Degenerative findings. No evidence of metastatic disease. 05/23/2022 MRI Lumbar Spine Impression: Heterogeneous appearance of the vertebral bodies stable from the prior exam, nonspecific. No enhancing mass. Mild to moderate discogenic changes L2-S1 grossly stable. For minimal stenosis at several levels asdetailed. 10/31/2021 Brain MRI IMPRESSION: No evidence of [...] 3 weeks was continued. Clinically the patient isminimally symptomatic. We will continue as planned with [...] neck CT. The patient was seen by [facility] on 07/[facility], and clinical evaluation most consistent with inflammatory/post-infectious findings. No suspicion for malignancy. The patient apparently chews tobacco, and was advised to discontinue.He will follow- up with ENT as indicated. 6. Cancer related pain Severe pain left upper chest wall since August 2022. Currently on Percocet and gabapentin with moderate relief. Will consider referral to [facility] palliative medicine if symptoms persist. 7. Abnormal [...] with chest x-ray etc. if symptoms worsen. Nina Grigsby MD documented in this encounterUniversity Hospitals Portage Medical Center08-21-2023 Miscellaneous Notes* Telephone Encounter - Analisa Stacy RPh - 03/10/2023 11:05 AM EDT Instructed by pt to change pharmacy to [place], [place]. Jose Stacy, PharmD, BCOP * Telephone Encounter - Denita Rai RN - 03/10/2023 9:59 AM EDT Pt notified of script and verbalizes understanding. Disposition: per Dr Grigsby, patient directed to: [facility]. Provided instructions and will call back. BRM: Script pended. Denita Rai RN * Telephone Encounter - Nina Grigsby MD - 03/10/2023 9:20 AM EDT I would recommend a Medrol Dosepak which is easier to wean off compared to prednisone. Please prescribe to local pharmacy. * Telephone Encounter - Denita Rai RN - 03/10/2023 8:35 AM EDT Pt was taking Prednisone 40 mg/day for rash. Took his last dose yesterday. Reports that the rash has improved, but is not gone completely. Pt requesting a refill of the Prednisone. Will you authorize? Denita Rai RN documented in this encounterUniversity Hospitals Portage Medical Center08-16-2023 Miscellaneous Notes* Telephone Encounter - Denita Rai RN - 03/05/2023 2:21 PM EDT Pt notified. Disposition: per Dr Grigsby, patient directed to: [facility] home. Provided instructions and will call back. Pt will call back if his symptoms persist. Denita Rai RN * Telephone Encounter - Nina Grigsby MD - 03/05/2023 2:05 PM EDT Agree with rec. Tell patient to call if cough gets worse and we can prescribe an antibiotic * Telephone Encounter - Denita Rai RN - 03/05/2023 1:18 PM EDT Pt c/o persistent cough w/ clear sputum. [...] suggestions? Denita Rai RN documented in this encounterUniversity Hospitals Portage Medical Center08-01-2023 Nurse Note* Pavithra Heart MA - 02/18/2023 2:39 PM EDT Patient hurt his back so he is having pain from that today. Pavithra Acuna MA documented in this encounterUniversity Hospitals Portage Medical Center08-01-2023 History of Present illness Narrative* Nina Grigsby MD - 02/18/2023 2:37 PM EDT PATIENT NAME: Cristal Gu DATE: 02/18/2023 PRIMARY CARE PHYSICIAN: Dr. [...] nebu Inhale 3 mL as instructed every 6hours as needed for wheezing/shortness of breath. 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 PATHOLOGY: 10/21/2022 [id number] NGS analysis KRAS G12C mutation present, 5.2% [...] No hypermetabolic osseous lesions 01/03/2023 Chest CTA ([facility]) Bilateral hilar soft tissue nodules concerning for [...] prior study, as above. 04/12/2022 Bone scan ([facility]) Degenerative findings. No evidence of metastatic disease. 05/23/2022 MRI Lumbar Spine Impression: Heterogeneous appearance of the vertebral bodies stable from the prior exam, nonspecific. No enhancing mass. Mild to moderate discogenic changes L2-S1 grossly stable. For minimal stenosis at several levels asdetailed. 10/31/2021 Brain MRI IMPRESSION: No evidence of [...] neck CT. The patient was seen by [facility] on 07/26/2021, and clinical evaluation most consistent with inflammatory/post-infectious findings. No suspicion for malignancy. The patient apparently chews tobacco, and was advised to discontinue.He will follow- up with ENT as indicated. 6. Cancer related pain Severe pain left upper chest wall since August 2022. Currently on Percocet and gabapentin with moderate relief. Will consider referral to [facility] palliative medicine if symptoms persist. 7. Abnormal [...] also has been referred to palliative care. Nina Grigsby MD documented in this encounterUniversity Hospitals Portage Medical Center07-31-2023 Miscellaneous Notes* Telephone Encounter - Yani Singer - 02/17/2023 2:14 PM EDT Patient has an OTV appointment on 02/18. Please place lab orders. Yani Singer documented in this encounterUniversity Hospitals Portage Medical Center07-20-2023 Miscellaneous Notes* Telephone Encounter - Vanessa Carl - 02/06/2023 2:11 PM EDT ER records scanned. * Telephone Encounter - Denita Rai RN - 02/06/2023 1:20 PM EDT FYI: Pt reports that he went to [facility] ER w/ a right ear ache. Diagnosed w/ an ear infection. Sent home on Amoxicillin 500 mg BID x 10 days and Ciprodex gtts BID x 7 days. Tomasa: Please scan pt's ER records from [facility]. Thanks! Denita Rai RN documented in this encounterUniversity Hospitals Portage Medical Center07-11-2023 History of Present illness Narrative* Jyoti Limon MD - 01/28/2023 3:15 PM EDT Radiation Oncology - Follow Up Note PATIENT NAME: Cristal Gu PATIENT DIAGNOSIS: Lung cancer, left upper lobe, pleomorphic carcinoma, stage IIb [id number], stage IIB AJCC 8th edition (chest wall [...] nebu Inhale 3 mL as instructed every 6hours as needed for wheezing/shortness of breath. Nebulizer [...] left upper lobe, pleomorphic carcinoma, stage IIb [id number], stage IIB AJCC 8th edition (chest wall invasion), PD-L1 95%, KRAS G12C mutation present Doing fairly well, and has had a good response to recent left supraventricular chest wall radiation. He continues active follow-up with Dr. Grigsby. We will plan to see patient back on an as-needed basis. Signed by: Jyoti Limon MD cc: Christina Azul [address] [place] [id number] documented in this encounterUniversity Hospitals Portage Medical Center06-26-2023 Miscellaneous Notes* Telephone Encounter - Denita Rai RN - 01/13/2023 3:11 PM EDT Pt notified and verbalizes understanding. Denita Rai RN * Telephone Encounter - Patricia Miller APRN.CNP - 01/13/2023 2:55 PM EDT The following approved medication requests have been transmitted electronically. Requested Prescriptions Signed Prescriptions Disp Refills ALPRAZolam (XANAX) 0.25 mg tablet 15 tablet 0 Sig: Take 1 tablet by mouth twice daily for 7 days. Authorizing Provider: PATRICIA MILLER APRN.CNP * Telephone Encounter - Denita Rai RN - 01/13/2023 2:47 PM EDT Patient phones requesting refills as follows: Last script written on 01/07/23 for 7 day supply. Requested Prescriptions Pending Prescriptions Disp Refills ALPRAZolam (XANAX) 0.25 mg tablet 15 tablet 0 Sig: Take 1 tablet by mouth twice daily for 7 days. Please review and advise. Denita Rai RN documented in this encounterUniversity Hospitals Portage Medical Center06-26-2023 Miscellaneous Notes* Telephone Encounter - Bernadine Escobar - 01/13/2023 11:18 AM EDT Patient is notified of appointments * Telephone Encounter - Cliff Marcano - 01/09/2023 9:59 AM EDT Attempted to contact patient to inform him of new appointment date & time; No Answer/ VM also full. Will attempt again at a later time. Cliff Marcano * Telephone Encounter - Rosibel Wheeler LPN - 01/08/2023 1:30 PM EDT Elpidio Will you please reschedule Maren's follow up with Dr. Limon to 01/28/23 same day as med onc. Dr. Limon would like PET results scheduled 01/17/23. Rosibel Wheeler LPN documented in this encounterUniversity Hospitals Portage Medical Center06-22-2023 Miscellaneous Notes* Telephone Encounter - Vanessa Fam [facility] - 01/09/2023 4:03 PM EDT Records faxed to [facility] [place] [phone]. documented in this encounterUniversity Hospitals Portage Medical Center06-21-2023 Miscellaneous Notes* Telephone Encounter - MARGARET Finnegan - 01/08/2023 2:49 PM EDT Social Work Problem Referral Note INFORMATION/REFERRAL : Cristal Gu 67 year old male was referred by Leonel Zhu to [facility] Social Work for the following reason(s): Alcohol Abuse PERSONS INTERVIEWED: patient INTERVENTION: Information & Referral Service Co-ordination Affect/Mood: The patient is noted as labile, withdrawn, and difficult or unable to assess IDENTIFIED PROBLEMS/NEEDS: Patient reports alcohol abuse. Continue to assess/collaborate Intervention/Referral to be provided:Patient is not interested in any alcohol resources. IMPRESSION/PLAN:SW received a referral from Leonel Zhu that during her assessment on 01/07/23it was noted that pt does admit he had a kumar since Friday and has been consuming large amountsof beer. During encounter he frequently changes topic [...] beers as being not much today . Patientis not interested in any alcohol resources. SW gently spoke about how excessive alcohol consumptioncan negatively impact cancer treatments.Patient commented that he has obtained sobriety on his own without any help and if wants to do it again he can. SW encouraged Patient to reach out to this SW if he changes his mind. Patient was appreciative of the call. F/U APPOINTMENT: PRN Assigned SW listed in Care Team tab: Yes ELIZABETH Finnegan-Marguerite documented in this encounterUniversity Hospitals Portage Medical Center06-20-2023 History of Present illness Narrative* Dominiqueshaista Murphy, RD - 01/07/2023 12:16 PM EDT Oncology Nutrition Therapy Reassessment RECOMMENDED MALNUTRITION DIAGNOSIS: [...] asking how much longer he has to bepresent. Written resources provided to patient. Contacted nurse academic manager and SW regarding patient's current condition [...] Dosing Weight: 57.4 kg Estimated kilocalorie needs: 9236-6405 kilocalories determined by 30-35 kcal/kg Estimated protein needs: 57-86 grams determined by 1.0-1.5 g/kg Dosing weight Estimated fluid needs: ~2776-2495 milliliters based on 1 mL per kcal [...] 6 hours as needed. Swish and Swallow 250mL 1 diphenhydrAMINE 12.5 mg/5 mL lidocaine visc [...] nebu Inhale 3 mL as instructed every 6hours as needed for wheezing/shortness of breath. 120 [...] 66 mL (KEYTRUDA) 200 mg INTRAVENOUS ONCE Nina Grigsby MD 200 mg at 01/07/23 1206 NaCl 0.9% iv infusion 500-999 mL/hr INTRAVENOUS PRN Nina Girgsby MD diphenhydrAMINE 50 mg injection (BENADRYL) 50 mg INTRAVENOUS PRN Nina Grigsby MD hydrocortisone sodium succinate (PF) 100 mg injection (Solu-CORTEF) 100 mg INTRAVENOUS PRN Nina Grigsby MD EPINEPHrine 1 mg/mL (1 mL) 0.3 mg injection 0.3 mg INTRAMUSCULAR PRN Nina Grigsby MD sodium chloride 0.9 % (flush) 10-20 mL (BD POSIFLUSH) 10-20 mL INTRAVENOUS PRN Nina Grigsby MD sodium chloride 0.9 % (flush) 10-20 mL (BD POSIFLUSH) 10-20 mL INTRAVENOUS DIRECTED PRN Nina Grigsby MD Need for Follow up: prn per pt request Referred by: self MNT Billing Type: Re-assess/15 min 2 units Time Spent with Patient: 30 minutes Signed by: Dominique Murphy MS, RDN, LD documented in this encounterUniversity Hospitals Portage Medical Center06-20-2023 History of Present illness Narrative* Aurelia Bradley RN - 01/07/2023 11:17 AM EDT LFT's reviewed with ok to proceed with tx as written. Aurelia Bradley RN documented in this encounterUniversity Hospitals Portage Medical Center06-20-2023 Miscellaneous Notes* Telephone Encounter - Lisa Figueroa - 01/07/2023 10:20 AM EDT Disregard. Patient just showed and currently in office now. Lisa Figueroa * Telephone Encounter - Lisa Figueroa - 01/07/2023 10:08 AM EDT Patient did not show for RV and treatment this morning. Lisa Figueroa documented in this encounterUniversity Hospitals Portage Medical Center06-19-2023 Miscellaneous Notes* Telephone Encounter - Yani Singer - 01/06/2023 11:43 AM EDT Patient has an OTV appointment on 01/06. Please place lab orders. Yani Singer documented in this encounterUniversity Hospitals Portage Medical Center06-16-2023 Miscellaneous Notes* Telephone Encounter - Denita Rai RN - 01/03/2023 4:20 PM EDT Disposition: per Yusef, patient directed to: Emergency Room due to the issue being urgent. Pt confirms that he will be going to [facility] ER. Report phoned to [facility] RN. Pt's last office note, copy of this encounter, and med list faxed. Denita Rai RN * Telephone Encounter - Denita Rai RN - 01/03/2023 11:31 AM EDT Yes, the cough w/ the blood tinged sputum is only in the mornings. Slightly more SOB the last few days, but still able to walk 2 miles per day. Denies chest pain. Pt was advised of your recommendations and verbalizes understanding. Denita Rai RN * Telephone Encounter - Yusef Pandya PA-C - 01/03/2023 11:26 AM EDT Is it only in the mornings? Does he have a cough or shortness of breath? There are many reasons forhemoptysis and he should probably go to ER if this is an ongoing thing for stat imaging to rule outPE vs other causes such as infection or cancer progression, etc. . Yusef Pandya PA-C * Telephone Encounter - Denita Rai RN - 01/03/2023 10:02 AM EDT Pt reports streaks of bright red blood in his sputum every morning x 1 week. This is new for the pt. Takes Plavix and Baby Aspirin daily. Any concerns? Denita Rai RN documented in this encounterUniversity Hospitals Portage Medical Center06-06-2023 Miscellaneous Notes* Telephone Encounter - Denita Rai RN - 12/24/2022 3:44 PM EDT Rosemarie from [place] [facility] states that they received pt's MMW script, however, they are currently out of viscous lidocaine. Script will be filled at our pharmacy. Pt notified and verbalizes understanding. [facility] instructed to cancel the script. Denita Rai RN documented in this encounterUniversity Hospitals Portage Medical Center06-06-2023 Miscellaneous Notes* Telephone Encounter - Denita Rai RN - 12/24/2022 3:07 PM EDT MMW script faxed to [facility] @ [phone]. Denita Rai RN * Telephone Encounter - Patricia Miller APRN.CNP - 12/24/2022 2:22 PM EDT The following approved medication requests have been transmitted electronically. Requested Prescriptions Signed Prescriptions Disp Refills azithromycin (ZITHROMAX Z-DAVID) 250 mg tablet 6 tablet 0 Sig: Take two (2) tablets by mouth the first day and then one (1) tablet daily for 4 days. Authorizing Provider: PATRICIA MILLER diphenhydrAMINE 12.5 mg/5 mL lidocaine visc 2% MAALOX 200-200-20 mg/5 mL nystatin prednisoLONE 15 mg/5 mL oral liquid 1:1:1:1:1 (CPD) 250 mL 1 Sig: Take 5 mL by mouth every 6 hours as needed. Swish and Swallow Authorizing Provider: PATRICIA MILLER APRN.SOLAR PANEL TECHNICIAN * Telephone Encounter - Denita Rai RN - 12/24/2022 12:59 PM EDT Pt notified and verbalizes understanding. WILIAM/Patricia: Scripts pended. Denita Rai RN * Telephone Encounter - Nina Grigsby MD - 12/24/2022 12:38 PM EDT Would consider antibiotics with Z-David. Magic mouthwash as needed. * Telephone Encounter - Denita Rai RN - 12/24/2022 9:21 AM EDT Pt c/o cough and sore throat x 1 week. Denies fevers or chills. Cough is productive w/ clear sputum. Has a white spot near the back of his throat. Began gargling w/ warm salt water just this morning.Any other recommendations for the pt? Denita Rai RN documented in this encounterUniversity Hospitals Portage Medical Center05-30-2023 History of Present illness Narrative* Ania Peters RN - 12/17/2022 10:44 AM EDT LFTs reviewed with Dr. Grigsby. Hold tx today. Pt to return in 10 days for repeat labs and 3 weeks for labs/OV/and possible tx. Tx nurse and pt informed. Schedule adjusted by PSS. Ania Peters RN * Aurelia Bradley RN - 12/17/2022 10:40 AM EDT CMP reviewed with [facility] per Janell Rai RN. Tx cancelled for today. Pt to return for repeat labs onlyin 10 days and return in 3 weeks for labs, OV and chemo. Pt notified and verbalizes understanding. Aurelia Bradley RN documented in this encounterUniversity Hospitals Portage Medical Center05-30-2023 History of Present illness Narrative* Nina Grigsby MD - 12/17/2022 6:10 AM EDT PATIENT NAME: Cristal Gu DATE: 12/17/2022 PRIMARY CARE PHYSICIAN: Dr. Christina Azul OTHER [...] well. The pain in his left upper chestwall has completely resolved, and his breathing is [...] nebu Inhale 3 mL as instructed every 6hours as needed for wheezing/shortness of breath. 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 PATHOLOGY: 10/21/2022 [id number] NGS analysis KRAS G12C mutation present, 5.2% [...] prior study, as above. 04/12/2022 Bone scan ([facility]) Degenerative findings. No evidence of metastatic disease. 05/23/2022 MRI Lumbar Spine Impression: Heterogeneous appearance of the vertebral bodies stable from the prior exam, nonspecific. No enhancing mass. Mild to moderate discogenic changes L2-S1 grossly stable. For minimal stenosis at several levels asdetailed. 10/31/2021 Brain MRI IMPRESSION: No evidence of [...] neck CT. The patient was seen by [facility] on 07/26/2021, and clinical evaluation most consistent with inflammatory/post-infectious findings. No suspicion for malignancy. The patient apparently chews tobacco, and was advised to discontinue.He will follow- up with ENT as indicated. 6. Cancer related pain Severe pain left upper chest wall since August 2022. Currently on Percocet and gabapentin with moderate relief. Will consider referral to [facility] palliative medicine if symptoms persist. 7. Abnormal [...] or he will not be able to receiveadditional treatment for his cancer. Nina Grigsby MD documented in this encounterUniversity Hospitals Portage Medical Center05-08-2023 Nurse Note* Ebony Marcelo Ma - 11/25/2022 10:09 AM EDT Clinical questionnaires incomplete due to not loading. Ebony Marcelo Ma documented in this encounterUniversity Hospitals Portage Medical Center05-08-2023 History of Present illness Narrative* Patricia Miller APRN.RONAL - 11/25/2022 9:30 AM EDT PATIENT NAME: Cristal Gu DATE: 11/25/2022 PRIMARY CARE PHYSICIAN: Dr. [...] for scheduled follow-up and treatment. INTERIM HISTORY: Cristal Gu returns for follow-up and to possibly resume treatment. His treatment has been on hold due to elevated LFTs. He states that he is not eating and sleeping well. He is feeling depressed. He took something from his son to help him sleep and it knocked him for a loop. Hehas been working on his car installing new [...] curcumin. Overall he is improving and wishes toproceed with treatment as planned. MEDICATIONS: Current Outpatient [...] nebu Inhale 3 mL as instructed every 6hours as needed for wheezing/shortness of breath. 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 PATHOLOGY: 10/21/2022 [id number] NGS analysis KRAS G12C mutation present, 5.2% [...] prior study, as above. 04/12/2022 Bone scan ([facility]) Degenerative findings. No evidence of metastatic disease. 05/23/2022 MRI Lumbar Spine Impression: Heterogeneous appearance of the vertebral bodies stable from the prior exam, nonspecific. No enhancing mass. Mild to moderate discogenic changes L2-S1 grossly stable. For minimal stenosis at several levels asdetailed. 10/31/2021 Brain MRI IMPRESSION: No evidence of [...] neck CT. The patient was seen by [facility] on 07/26/20[facility], and clinical evaluation most consistent with inflammatory/post-infectious findings. No suspicion for malignancy. The patient apparently chews tobacco, and was advised to discontinue.He will follow- up with ENT as indicated. 6. Cancer related pain Severe pain left upper chest wall since August 2022. Currently on Percocet and gabapentin with moderate relief. Will consider referral to [facility] palliative medicine if symptoms persist. 7. Abnormal LFTs Labs from 11/11/2022 revealed significant elevation of the SGOT and SGPT, most likely transaminitis secondary to immunotherapy versus supplements (fenbendazole and curcumin). The patient was advised to discontinue all supplements, and avoid other agents which might contribute to liver dysfunction. Repeat labs and return visit in 1 week. Patricia Miller APRN.RONAL I spent a total of 30 minutes on the date of the service which included preparing to see the patient, [id number] patient care, completing clinical documentation, obtaining and/or reviewing separately obtained history, performing a medically appropriate examination, counseling and educating the pat ient/family/caregiver, ordering medications, tests, or procedures, independently interpreting results (not separately reported), and communicating results to the patient/family/caregiver. documented in this encounterUniversity Hospitals Portage Medical Center05-04-2023 Miscellaneous Notes* Telephone Encounter - Ebony Marcelo Ma - 11/21/2022 11:[address] lab orders for appointment on 11/25/22. Ebony Marcelo Ma documented in this encounterUniversity Hospitals Portage Medical Center05-03-2023 Miscellaneous Notes* Telephone Encounter - Dominique Murphy RD - 11/20/2022 11:21 AM EDT Thank you for the update. I agree his depression can be playing a large role on his appetite. His weight appears stable over the past 1-2 months, but I am happy to meet with him again if patient desires. Thanks, Dominique Murphy, MS, RDN, LD * Telephone Encounter - Nina Grigsby MD - 11/20/2022 11:12 AM EDT Most likely his depression and poor appetite are related to his disease rather than treatment. Bestthat we discuss options in person when he comes in for his next appointment. * Telephone Encounter - Merissa Fam RN - 11/20/2022 10:43 AM EDT Pt here for post radiation follow up. He reports continued decreased appetite and feels depressed. He states he thinks that with all of the treatments not doing what they're supposed to, that it iscausing him to feel this way. He tries to eat small frequent meals, but can only take a few bites of anything. He drinks 2-3 ensure a day and has met with senior group manager before. We discussed the possibility of adding an antidepressant. Pt is concerned about his LFTs and he does not want to take anything that could effect those. Is there something you can prescribe that may increase appetite & help depression while not altering his liver function? Pt uses [facility] in [place] if you want to send something. I will also copy senior group manager and social work to be aware of changes/issues with patient. Merissa Fam RN documented in this encounterUniversity Hospitals Portage Medical Center05-03-2023 History of Present illness Narrative* G Erasto Limon MD - 11/20/2022 10:29 AM EDT Radiation Oncology - Follow Up Note PATIENT NAME: Cristal Gu PATIENT DIAGNOSIS: Lung cancer, left upper lobe, pleomorphic carcinoma, stage IIb [id number], stage IIB AJCC 8th edition (chest wall [...] nebu Inhale 3 mL as instructed every 6hours as needed for wheezing/shortness of breath. Nebulizer [...] left upper lobe, pleomorphic carcinoma, stage IIb [id number], stage IIB AJCC 8th edition (chest wall invasion), PD-L1 95%, KRAS G12C mutation present Doing fairly well, with good intial response to palliative radiation. He continues pembrolizumab tory Grigsby. Plan to see back in 4-6 weeks. Signed by: Jyoti Limon MD cc: Christina Azul [address] [id number] documented in this encounterUniversity Hospitals Portage Medical Center05-01-2023 History of Present illness Narrative* Nina Grigsby MD - 11/18/2022 7:55 AM EDT PATIENT NAME: Cristal Gu DATE: 11/18/2022 PRIMARY CARE PHYSICIAN: Dr. [...] when his LFT abnormality was discovered, but hasremained on curcumin. MEDICATIONS: Current Outpatient Medications Medication [...] nebu Inhale 3 mL as instructed every 6hours as needed for wheezing/shortness of breath. 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 PATHOLOGY: 10/21/2022 [id number] NGS analysis KRAS G12C mutation present, 5.2% [...] prior study, as above. 04/12/2022 Bone scan ([facility]) Degenerative findings. No evidence of metastatic disease. 05/23/2022 MRI Lumbar Spine Impression: Heterogeneous appearance of the vertebral bodies stable from the prior exam, nonspecific. No enhancing mass. Mild to moderate discogenic changes L2-S1 grossly stable. For minimal stenosis at several levels asdetailed. 10/31/2021 Brain MRI IMPRESSION: No evidence of [...] neck CT. The patient was seen by [facility] on 07/26/2021, and clinical evaluation most consistent with inflammatory/post-infectious findings. No suspicion for malignancy. The patient apparently chews tobacco, and was advised to discontinue.He will follow- up with ENT as indicated. 6. Cancer related pain Severe pain left upper chest wall since August 2022. Currently on Percocet and gabapentin with moderate relief. Will consider referral to [facility] palliative medicine if symptoms persist. 7. Abnormal LFTs Labs from 11/11/2022 revealed significant elevation of the SGOT and SGPT, most likely transaminitis secondary to immunotherapy versus supplements (fenbendazole and curcumin). The patient was advised to discontinue all supplements, and avoid other agents which might contribute to liver dysfunction. Repeat labs and return visit in 1 week. Nina Grigsby MD documented in this encounterUniversity Hospitals Portage Medical Center04-27-2023 Miscellaneous Notes* Telephone Encounter - Yani Singer - 11/14/2022 9:16 AM EDT Patient has an OTV appointment on 11/18. Please place lab orders. Yani Singer documented in this encounterUniversity Hospitals Portage Medical Center04-25-2023 History of Present illness Narrative* G Erasto Limon MD - 11/12/2022 12:00 AM EDT [facility] Radiation Oncology Department RADIATION ONCOLOGY - COMPLETION NOTE PATIENT: CRISTAL GUDOB: 1955 DATES OF TREATMENT: 10/28/2022- 11/12/2022 DIAGNOSIS: Lung cancer, left upper lobe, pleomorphic carcinoma, stage IIb [id number], stage IIB AJCC 8th edition (chest wall [...] treatment. The patient was able to complete treatmentas intended without break interruption or modification of prescription plan. The disease response will be assessed in clinic. He has continued systemic treatment under the direction of Dr. Grigsby. The patient will be seen again in 2 weeks for post radiation follow-up. Staff Physician Erasto Limon M.D. / WST 0:33 AM documented in this encounterUniversity Hospitals Portage Medical Center04-24-2023 History of Present illness Narrative* Rita Hurst RN - 11/11/2022 3:39 PM EDT STAT LFT's and LDH resulted and remain elevated. Dr. Grigsby wants to hold treatment today and have patient return next week for labs, to see Grigsby and possible treatment depending on lab results. PSS aware to schedule. Rita Hurst RN * Vanessa Cruz RN - 11/11/2022 2:[address] Grigsby to the infusion room to discuss with patient the increase liver function test results. Would like to redraw and rerun CMP and LDH stat to see if any better. If so, will treat. If not, willnot treat and bring patient back in 1 week to see if labs are better. Patient verbalized understanding. Vanessa Cruz RN Labs still elevated. Patient IV Dc'D and released. Lead nurse notified and will verify plans with Dr. Grigsby. Informed patient we will call him with his appointment. Treatment plan deferred. Vanessa Cruz RN * Rita Hurst RN - 11/11/2022 2:42 PM EDT STAT liver function panel and LDH ordered per Dr. Grigsby's request due to high AST and ALT results today. Depending on results may hold treatment for 1 week and recheck labs at that time. Rita Hurst RN documented in this encounterUniversity Hospitals Portage Medical Center04-24-2023 Miscellaneous Notes* Telephone Encounter - Merissa Rodríguez (Art History Instructor) - 11/11/2022 3:10 PM EDT Ambulatory Pharmacy Prior Authorization Note Provider Intervention Required?: No- Pharmacy completed on your behalf. Rx Plan: Drug: Oxycodone-Acetaminophen 5/325 Cover My Meds Diamond: [id number] Determination: Approved Prior Authorization/Case #: [id number] Prior Authorization Expiration: 07/10/2023 Time to PA Submission in CMM: 15 min Time to PA Determination in CMM: Same day Additional Information: For questions relating to this submission, please contact [facility] at [phone] documented in this encounterUniversity Hospitals Portage Medical Center04-24-2023 Miscellaneous Notes* Telephone Encounter - Merissa Fam RN - 11/11/2022 12:51 PM EDT Please sign if agreeable. Merissa Fam RN documented in this encounterUniversity Hospitals Portage Medical Center04-24-2023 History of Present illness Narrative* Nina Grigsby MD - 11/11/2022 7:43 AM EDT PATIENT NAME: Cristal Gu DATE: 11/11/2022 PRIMARY CARE PHYSICIAN: Dr. [...] nebu Inhale 3 mL as instructed every 6hours as needed for wheezing/shortness of breath. 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 PATHOLOGY: 10/21/2022 [id number] NGS analysis KRAS G12C mutation present, 5.2% [...] prior study, as above. 04/12/2022 Bone scan ([facility]) Degenerative findings. No evidence of metastatic disease. 05/23/2022 MRI Lumbar Spine Impression: Heterogeneous appearance of the vertebral bodies stable from the prior exam, nonspecific. No enhancing mass. Mild to moderate discogenic changes L2-S1 grossly stable. For minimal stenosis at several levels asdetailed. 10/31/2021 Brain MRI IMPRESSION: No evidence of [...] to the left upper chest wall was startedon 10/28/2022. Currently the patient is clinically stable. [...] neck CT. The patient was seen by [facility] on 07/26/20[facility], and clinical evaluation most consistent with inflammatory/post-infectious findings. No suspicion for malignancy. The patient apparently chews tobacco, and was advised to discontinue.He will follow- up with ENT as indicated. 6. Cancer related pain Severe pain left upper chest wall since August 2022. Currently on Percocet and gabapentin with moderate relief. Will consider referral to [facility] palliative medicine if symptoms persist. 7. Abnormal LFTs Labs from today reveal significant elevation of the SGOT and SGPT, most likely transaminitis secondary to immunotherapy. We will hold treatment today and repeat labs in 1 week on return. A long course of steroids will be considered if LFTs remain abnormal. Nina Grigsby MD documented in this encounterUniversity Hospitals Portage Medical Center04-17-2023 History of Present illness Narrative* G Erasto Limon MD - 11/04/2022 12:12 PM EDT Radiation Oncology - On Treatment Review (OTR) Note PATIENT NAME: Cristal Gu PATIENT DIAGNOSIS: Lung cancer, left upper lobe, pleomorphic carcinoma, stage IIb [id number], stage IIB AJCC 8th edition (chest wall [...] outlined. Jyoti Limon MD documented in this encounterUniversity Hospitals Portage Medical Center04-15-2023 Miscellaneous Notes* Telephone Encounter - Jayson Allred MD - 11/02/2022 9:24 AM EDT Called with increasing cough and occasional blood tinged sputum. Deenies any other symptoms. Levaquin sent Instructed to see Dr. Grigsby next week documented in this encounterUniversity Hospitals Portage Medical Center04-13-2023 History of Present illness Narrative* Nina Grigsby MD - 10/31/2022 7:50 AM EDT PATIENT NAME: Cristal Gu DATE: 10/31/2022 PRIMARY CARE PHYSICIAN: Dr. [...] upper chest wall pain improved almost immediately. Hesubsequently was seen by Dr. Limon, and was [...] nebu Inhale 3 mL as instructed every 6hours as needed for wheezing/shortness of breath. 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 PATHOLOGY: 10/21/2022 [id number] NGS analysis KRAS G12C mutation present, 5.2% [...] prior study, as above. 04/12/2022 Bone scan ([facility]) Degenerative findings. No evidence of metastatic disease. 05/23/2022 MRI Lumbar Spine Impression: Heterogeneous appearance of the vertebral bodies stable from the prior exam, nonspecific. No enhancing mass. Mild to moderate discogenic changes L2-S1 grossly stable. For minimal stenosis at several levels asdetailed. 10/31/2021 Brain MRI IMPRESSION: No evidence of [...] to the left upper chest wall was startedon 10/28/2022. Currently the patient is clinically stable. [...] neck CT. The patient was seen by [facility] on 07/26/20[facility], and clinical evaluation most consistent with inflammatory/post-infectious findings. No suspicion for malignancy. The patient apparently chews tobacco, and was advised to discontinue.He will follow- up with ENT as indicated. 6. Cancer related pain Severe pain left upper chest wall since August 2022. Currently on Percocet with moderate relief. Will consider referral to [facility] palliative medicine if symptoms persist. Nina Grigsby MD documented in this encounterUniversity Hospitals Portage Medical Center04-12-2023 History of Present illness Narrative* Dominique Gray, OSCAR - 10/30/2022 9:05 AM EDT Oncology Nutrition Therapy Reassessment RECOMMENDED MALNUTRITION DIAGNOSIS: [...] states he was reading online and watching [employer] vidoes and felt confused. Discussed with pt importance [...] nebu Inhale 3 mL as instructed every 6hours as needed for wheezing/shortness of breath. 120 [...] Gray MS, RDN, LD documented in this encounterUniversity Hospitals Portage Medical Center04-06-2023 History of Present illness Narrative* G Erasto Limon MD - 10/24/2022 5:19 PM EDT Radiation Oncology - Follow Up/new problem note PATIENT NAME: Cristal Gu PATIENT DIAGNOSIS: Lung cancer, left upper lobe, pleomorphic carcinoma, stage IIb [id number], stage IIB AJCC 8th edition (chest wall [...] nebu Inhale 3 mL as instructed every 6hours as needed for wheezing/shortness of breath. Nebulizer [...] left upper lobe, pleomorphic carcinoma, stage IIb [id number], stage IIB AJCC 8th edition (chest wall [...] with single agent pembrolizumab. I will plan asimulation in order to direct treatment to the left upper chest wall area. This is above his previous area of treatment. And hopeful this will help his symptoms control. Signed by: Jyoti Limon MD cc: Christina Azul [facility] [place] [address] No referring provider defined for this encounter. documented in this encounterUniversity Hospitals Portage Medical Center04-06-2023 Miscellaneous Notes* Telephone Encounter - Denita Rai RN - 10/24/2022 1:34 PM EDT CYCLE 1/DAY 1 POST TREATMENT CALL Today's date: October 24, 2022 Treatment Regimen: Pembrolizumab C1D1 Date: 10/21/22 Called patient to follow-up on symptom management. Spoke with patient. SYMPTOM ASSESSMENT Neuro: None CV/Resp: Shortness of breath - Yes. Most noticeable when resting and driving. Per pt, no more than his normal. GI/: Appetite: No appetite today. Reminded pt of his appointment w/ the senior group manager this coming Friday, 10/28. Pt verbalizes understanding. [...] since his last visit. Rates his pain 5/10. Takes Percocet at bedtime. Fever: No Chills: [...] protocol. Denita Rai RN documented in this encounterUniversity Hospitals Portage Medical Center04-05-2023 Miscellaneous Notes* Telephone Encounter - Rolanda Lawrence - 10/23/2022 8:11 AM EDT Patient has appt already scheduled with JEROME on 10/28. Patient is scheduled to see Lawn Mower Repairer @ 10:00 after his JEROME on 10/28. Rolanda Lawrence * Telephone Encounter - Denita Rai RN - 10/22/2022 3:35 PM EDT Clerical: Please schedule pt on a day that he's already going to be here. Audra: MARIA L.... Denita Rai RN * Telephone Encounter - Yusef Pandya PA-C - 10/22/2022 3:31 PM EDT Signed Yusef Pandya PA-C * Telephone Encounter - Denita Rai RN - 10/22/2022 1:39 PM EDT Pt voiced interest in meeting w/ the senior group manager. Order pended. Denita Rai RN documented in this encounterUniversity Hospitals Portage Medical Center04-03-2023 Nurse Note* Yani Singer - 10/21/2022 1:37 PM EDT Clinical questionnaires incomplete due to Nurse was Interrupted by provider during rooming process documented in this encounterUniversity Hospitals Portage Medical Center04-03-2023 History of Present illness Narrative* Nina Grigsby MD - 10/21/2022 7:16 AM EDT PATIENT NAME: Cristal Gu DATE: 10/21/2022 PRIMARY CARE PHYSICIAN: Dr. [...] chest wall was scheduled, but the patient ultimatelyelected not to proceed with the biopsy. His [...] nebu Inhale 3 mL as instructed every 6hours as needed for wheezing/shortness of breath. 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 04/12/2022 Bone scan ([facility]) Degenerative findings. No evidence of metastatic disease. 05/23/2022 MRI Lumbar Spine Impression: Heterogeneous appearance of the vertebral bodies stable from the prior exam, nonspecific. No enhancing mass. Mild to moderate discogenic changes L2-S1 grossly stable. For minimal stenosis at several levels asdetailed. 10/31/2021 Brain MRI IMPRESSION: No evidence of [...] 2015. Status post CABG x 4 in [place] 2015. Currently stable. Continue management per PCP/cardiology. 4. Peripheral vascular disease Status post balloon angioplasty right lower leg 2019. On long-term antiplatelet agents with Plavix and Pletal. Continue management per PCP/vascular surgery. 5. Abnormal right tonsil on PET scan (05/28/2021) and neck CT (07/11/2021). Radiographic abnormalities identified on baseline PET scan and neck CT. The patient was seen by [facility] on 07/26/2021, and clinical evaluation most consistent with inflammatory/post-infectious findings. No suspicion for malignancy. The patient apparently chews tobacco, and was advised to discontinue.He will follow- up with ENT as indicated. 6. Cancer related pain Severe pain left upper chest wall since August 2022. Currently on Percocet with moderate relief. Will consider referral to [facility] palliative medicine if symptoms persist. Nina Grigsby MD documented in this encounterUniversity Hospitals Portage Medical Center04-03-2023 History of Present illness Narrative* G Erasto Limon MD - 10/21/2022 12:00 AM EDT CRISTAL GU [id number] 10/21/2022 [facility] Radiation Oncology Department SIMULATION NOTE DATE OF SIMULATION: 10/21/2022 THERAPIST: Elizabeth Severino MACHINE: [employer] DIAGNOSIS: Malignant neoplasm of upper lobe, left [...] will be completed per nursing. Electronically Signed Erasto Limon M.D. / GABRIELLE 34:40 PM documented in this encounterUniversity Hospitals Portage Medical Center04-03-2023 History of Present illness Narrative* Jyoti Limon MD - 10/21/2022 12:00 AM EDT CRISTAL GU [id number] 10/21/2022 [facility] Department of Radiation Oncology Treatment Planning Note For reasons stated in the consult note, Cristal Gu is a candidate for radiation therapy. Based on review and interpretation of the relevant diagnostic studies together with the exam findings, Cristal Gu was simulated on 10/21/2022 at which time the target volume and/or requisite hall were d elineated, as indicated in the simulation note, to [...] using conventional or 3D planning. The specific doserequirements for the PTV, organs at risk and dose-volume histograms are contained in this treatmentplan and/or elsewhere in the medical record. A completed summary of this plan dated 10-24-22 incorporated herein by reference includes dose, beam arrangements, energy, blocking, isodose distribution, and/or ports and DVH. Electronically Signed Erasto Limon M.D. :29 PM documented in this encounterUniversity Hospitals Portage Medical Center03-31-2023 Miscellaneous Notes* Telephone Encounter - Yani Singer - 10/18/2022 3:50 PM EDT Patient has an OTV appointment on 10/21. Please place lab orders. Yanihaider Singer documented in this encounterUniversity Hospitals Portage Medical Center03-31-2023 Miscellaneous Notes* Telephone Encounter - Lisa Figueroa - 10/18/2022 8:42 AM EDT Appointments have been scheduled and patient has been notified by Alexandria Moura. Thank you! Lisa Figueroa * Telephone Encounter - Denita Rai RN - 10/18/2022 8:00 AM EDT Clerical: Spoke w/ Rachel Dominguez. She will be coming up to talk w/ you regarding his appointments.Thanks! Denita Rai RN * Telephone Encounter - Nina Grigsby MD - 10/17/2022 5:07 PM EDT Please set up appointment Friday or Friday to start pembrolizumab. Also appointment Dr. Limon to evaluate for palliative radiation. * Telephone Encounter - Denita Rai RN - 10/17/2022 5:05 PM EDT Pt notified of script. BRM: Pt does not wish to wait for biopsy. Wants to start treatment JATINDER. Denita Rai RN * Telephone Encounter - Denita Rai RN - 10/17/2022 4:52 PM EDT Discussed w/ Dr Grigsby who recommends Percocet 1-2 q 4 hours prn. BRM: Script pended. Denita Rai RN * Telephone Encounter - Denita Rai RN - 10/17/2022 3:27 PM EDT Records requested and received. Given to Patricia to review. Denita Rai RN * Telephone Encounter - Patricia Miller APRN.CNP - 10/17/2022 3:16 PM EDT Please obtain ER reports. Thanks, Patricia Miller APRN.SOLAR PANEL TECHNICIAN * Telephone Encounter - Denita Rai RN - 10/17/2022 2:54 PM EDT Pt c/o intolerable pain in his left chest, shoulder and arm. Rates his pain 9- 10/10. Describes as aconstant aching pain. Was seen recently in the ER and prescribed a medrol dose pack. Pt notes the medrol tore up his stomach. Has old scripts of Oxycodone and [place] at home. Took one dose of each w/ very little relief. What do you advise for his pain? Denita Rai RN documented in this encounterUniversity Hospitals Portage Medical Center03-28-2023 Miscellaneous Notes* Telephone Encounter - Denita Rai RN - 10/15/2022 2:34 PM EDT Clerical: Can you assist w/ this? Denita Rai RN * Telephone Encounter - Nina Girgsby MD - 10/15/2022 2:22 PM EDT I spoke to the thoracic radiology IR physicians, and they suggested that we arrange for a musculoskeletal (MSK) biopsy. This is a different team. I put an order in, but not sure that is the appropriate one. Please investigate how to arrange the MSK/chest wall biopsy. Thanks, B * Telephone Encounter - Joellen Jacome MD - 10/15/2022 11:31 AM EDT .. RADIOLOGIST REQUEST / DENIAL FORM STAFF [...] DATE: October 15, 2022 TIME: 11:32 AM * Telephone Encounter - Treva Vanessa LPN - 10/15/2022 10:14 AM EDT BX. COORDINATOR INFORMATION LAB RESULTS: PT INR [...] nebu Inhale 3 mL as instructed every 6hours as needed for wheezing/shortness of breath. traMADol [...] DATE: October 15, 2022 TIME: 10:14 AM * Telephone Encounter - Bibi Lauren - 10/15/2022 10:00 AM EDT RADIOLOGY CALL CENTER INTAKE OUT PATIENT THERAPIST: BIBI EXT: [id number] DATE: 10/15/2022 TIME: 10:01AM TRACKING #. [id number] REQUESTING PERSON: Alexandria PHONE/PAGER: [phone] REQUESTING STAFF: Jaydon Grigsby MD PHONE/PAGER: [phone] SPECIFICS OF THE REQUEST: (Please be as detailed as possible. If request is lymph node biopsy, specify LOCATION of the node if possible): IMAGING GUIDED BIOPSY LUNG ] SPECIAL REQUESTS: TISSUE SAMPLE, LABWORK: Routine Evaluation -Fine needle aspiration (FNA), core biopsy, no preference, unsure, specific processing request for pathology (For example: send for ER, OR, HER2/sarah or possible lymphoma send in RPMI [...] TO EVALUATE APPROPRIATENESS/FEASIBILITY OF THE REQUEST) IMAGING: [facility] (If the imaging was obtained outside the [facility] system, then it needs to be submitted for review prior to approval.) Note to all persons requesting biopsies: All biopsy requests will be scheduled as quickly as possible, based on the clinical urgency, availability of appointment times, the need to hold anti-thrombolytic therapy (aspirin, blood thinners) and the patient s schedule, including the need for an available local company refrigerated truck driver. If a percutaneous biopsy or drainage is not felt to be safe or an alternative method for establishing a diagnosis is possible, this will be discussed directly with the requesting physician. documented in this encounterUniversity Hospitals Portage Medical Center03-28-2023 History of Present illness Narrative* Nina Grigsby MD - 10/15/2022 6:56 AM EDT PATIENT NAME: Cristal Gu DATE: 10/15/2022 PRIMARY CARE PHYSICIAN: Dr. [...] his left shoulder. He was seen at [facility] ER on 10/09/2022 and given a Medrol Dosepak which helped the pain somewhat. He has no other areas of pain. Chronic shortness of breath is u nchanged. No cough or hemoptysis. MEDICATIONS: Current Outpatient [...] nebu Inhale 3 mL as instructed every 6hours as needed for wheezing/shortness of breath. 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 04/12/2022 Bone scan ([facility]) Degenerative findings. No evidence of metastatic disease. 05/23/2022 MRI Lumbar Spine Impression: Heterogeneous appearance of the vertebral bodies stable from the prior exam, nonspecific. No enhancing mass. Mild to moderate discogenic changes L2-S1 grossly stable. For minimal stenosis at several levels asdetailed. 10/31/2021 Brain MRI IMPRESSION: No evidence of [...] at length. We elected to refer to [facility] interventional radiology to evaluate for biopsy of [...] 2015. Status post CABG x 4 in [place] 2015. Currently stable. Continue management per PCP/cardiology. 4. Peripheral vascular disease Status post balloon angioplasty right lower leg 2019. On long-term antiplatelet agents with Plavix and Pletal. Continue management per PCP/vascular surgery. 5. Abnormal right tonsil on PET scan (05/28/2021) and neck CT (07/11/2021). Radiographic abnormalities identified on baseline PET scan and neck CT. The patient was seen by [facility] on 07/[facility]/20[facility], and clinical evaluation most consistent with inflammatory/post-infectious findings. No suspicion for malignancy. The patient apparently chews tobacco, and was advised to discontinue.He will follow- up with ENT as indicated. Nina Grigsby MD documented in this encounterUniversity Hospitals Portage Medical Center03-27-2023 NotebmTri[facility]03-06-[facility] History of Present illness Narrative* Nina Grigsby MD - 09/23/2022 7:11 AM EST PATIENT NAME: Cristal Gu DATE: 09/23/2022 PRIMARY CARE PHYSICIAN: Dr. [...] leg. He is due to see his benefits analyst to evaluate for possible left leg vascular [...] nebu Inhale 3 mL as instructed every 6hours as needed for wheezing/shortness of breath. 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 04/12/2022 Bone scan ([facility]) Degenerative findings. No evidence of metastatic disease. 05/23/2022 MRI Lumbar Spine Impression: Heterogeneous appearance of the vertebral bodies stable from the prior exam, nonspecific. No enhancing mass. Mild to moderate discogenic changes L2-S1 grossly stable. For minimal stenosis at several levels asdetailed. 10/31/2021 Brain MRI IMPRESSION: No evidence of [...] pulmonary nodules, suspicious for metastases. With antibiotics thepatient's pulmonary symptoms improved, and he currently is [...] neck CT. The patient was seen by [facility] on 07/26/20[facility], and clinical evaluation most consistent with inflammatory/post-infectious findings. No suspicion for malignancy. The patient apparently chews tobacco, and was advised to discontinue.He will follow- up with ENT as indicated. Nina Grigsby MD documented in this encounterUniversity Hospitals Portage Medical Center03-01-2023 NoteUT Cardiology - [facility] [place] Riccardo Barber. is a 67 y.o. year old male patient being seen for Coronary Artery Disease, Peripheral Vascular Disease, Carotid Stenosis, and Hypertension Patient Active Problem List Diagnosis Coronary artery disease involving coronary bypass graft of [place] heart without angina pectoris PVD (peripheral vascular disease) ([facility]/HCC) Primary hypertension Stenosis of carotid artery No [...] lower extremity edema. He is working on cutting back on smoking. He was recently found to have a lung nodule and is being planned for a needle biopsy. He is currently maintained on aspirin, Plavix and cilostazol. Carotid ultrasound done at the [facility] 10/30/2020: Report mentions significant area reduction suggesting [...] and Lung CA He underwent VATS at [facility] for a lung mass last year Had cath prior 07/10/22 - results reviewed Doing well otherwise He has PVD with prior stenting to RLE. He is having some calf pain now in his LLE when walking. He wants to discuss possible intervention. He also has bilateral carotid stenosis, no dizziness or syncope Last echo 2016, normal EF, No significant valve disease Review [...] Nose: Nose normal. Mouth/Throat: (more content not included)...[facility] 09-12-2022 Miscellaneous Notes* Telephone Encounter - [place] Kearney - 09/12/2022 11:46 AM EST Patient will get labs with his CT on 09/17/2022. I took patient off lab schedule on 09/23/2022@3:15pm. Florida Kearney * Addendum Note - Nina Grigsby MD - 09/12/2022 11:04 AM ESTAddended by: NINA GRIGSBY on: 09/12/2022 11:04 AM Modules accepted: Orders * Telephone Encounter - Nina Grigsby MD - 09/12/2022 11:02 AM EST The patient should have labs drawn prior to scans. I will see him as scheduled, but no need to comein early on that day to repeat labs. Thanks, B * Telephone Encounter - [place] Marguerite Caio - 09/12/2022 8:20 AM EST Spoke to patient & rescheduled CT CAP on 09/17/2022@11:15 am. Rescheduled lab on 09/23/22@3:15 pm & BRM@3:30 pm. Florida Kearney * Telephone Encounter - Denita Rai RN - 09/11/2022 3:49 PM EST Pt's son, Eduardo, notified of script and verbalizes understanding. Clerical: Please move up pt's CT's to be done as soon as possible and call pt when scheduled. Will need f/u w/ BRM to review results. Thanks! Denita Rai RN * Telephone Encounter - Patricia Miller APRN.SOLAR PANEL TECHNICIAN - 09/11/2022 2:41 PM EST The following approved medication requests have been transmitted electronically. Requested Prescriptions Signed Prescriptions Disp Refills levoFLOXacin (LEVAQUIN) 750 mg tablet 7 tablet 0 Sig: Take 1 tablet by mouth once daily for 7 days. Authorizing Provider: PATRICIA MILLER APRN.SOLAR PANEL TECHNICIAN * Telephone Encounter - Denita Rai RN - 09/11/2022 2:24 PM EST Pt's symptoms discussed w/ Dr Grigsby. He recommends another course of Levaquin as well as doing CT's now rather than later. Call placed to pt. No answer. Voicemail full. Unable to leave a message. Patricia: Script for Levaquin pended as previously prescribed. Denita Rai RN * Telephone Encounter - Denita Rai RN - 09/11/2022 9:57 AM EST Pt was treated, per you, w/ Levaquin [...] well. Denies fevers. Has been taking Guerita Milmine cold as well as Advil for his symptoms. Pt due to have CT scans 10/08/22. What do you advise? Denita Rai RN documented in this encounterUniversity Hospitals Portage Medical Center01-31-2023 History of Present illness Narrative* Nina Grigsby MD - 08/20/2022 7:35 AM EST PATIENT NAME: Cristal Gu DATE: 08/20/2022 PRIMARY CARE PHYSICIAN: Dr. [...] unusual fevers night sweats or weight loss. Hehas stopped smoking, and does not chew tobacco. He apparently was drinking heavily due to depression , but stopped drinking 2 weeks ago. MEDICATIONS: Current Outpatient Medications Medication Sig albuterol (PROVENTIL) 2.5 mg /3 mL (0.083 %) nebulizer solution Use 2.5 mg via nebulizer. ipratropium-albuterol (DUONEB) 0.5 mg-3 mg(2.5 mg base)/3 mL nebu Inhale 3 mL as instructed every 6hours as needed for wheezing/shortness of breath. 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 04/12/2022 Bone scan ([facility]) Degenerative findings. No evidence of metastatic disease. 05/23/2022 MRI Lumbar Spine Impression: Heterogeneous appearance of the vertebral bodies stable from the prior exam, nonspecific. No enhancing mass. Mild to moderate discogenic changes L2-S1 grossly stable. For minimal stenosis at several levels asdetailed. 10/31/2021 Brain MRI IMPRESSION: No evidence of [...] a chest CT in 2 months, he willthen return for follow-up. Because of his left flank we will obtain CT abdomen/pelvis as well. 2. Centrilobular emphysema (HCC) - ICD9: 492.8, ICD10: J43.2 Long history of tobacco abuse, quit September 2021. Chronic shortness of breath and cough secondary to COPD. Currently the patient complains of acute shortness of breath, cough and wheezing suggestive ofbronchitis. We will give a course of antibiotics [...] neck CT. The patient was seen by [facility] on 07/[facility]/20[facility], and clinical evaluation most consistent with inflammatory/post-infectious findings. No suspicion for malignancy. The patient apparently chews tobacco, and was advised to discontinue.He will follow- up with ENT as indicated. Nina Grigsby MD documented in this encounterUniversity Hospitals Portage Medical Center12-06-2022 History of Present illness Narrative* G Erasto Limon MD - 06/25/2022 10:43 AM EST Radiation Oncology - Follow Up Note PATIENT NAME: Cristal Gu PATIENT DIAGNOSIS: Lung cancer, left upper lobe, pleomorphic carcinoma, stage IIb [id number], stage IIB AJCC 8th edition (chest wall [...] nebu Inhale 3 mL as instructed every 6hours as needed for wheezing/shortness of breath. traMADol [...] left upper lobe, pleomorphic carcinoma, stage IIb [id number], stage IIB AJCC 8th edition (chest wall invasion), PD-L1 95%, KRAS G12C mutation present Doing fairly well after recent completion of left chest radiation. He had episode of cough likely community-acquired bronchitis. Doing better after p.o. antibiotics. No obvious evidence of recurrenceclinically or radiographically. We will plan to see her back in 3 months. Patient will have continued follow-up with medical oncology, Dr. Grigsby who will order future staging examinations. Signed by: Jyoti Limon MD cc: Christina Azul [address] [place] [id number] No referring provider defined for this encounter. documented in this encounterUniversity Hospitals Portage Medical Center12-06-2022 History of Present illness Narrative* Patricia Miller APRN.SOLAR PANEL TECHNICIAN - 06/25/2022 10:09 AM EST PATIENT NAME: Cristal Gu DATE: 06/25/2022 PRIMARY CARE PHYSICIAN: Dr. Christina Azul OTHER PHYSICIANS: Dr. Verito Whelan, Dr. Marianne Fileds, Dr. Limon Portions of this encounter note have been copied from the note from 04/30/2022 and has been updatedwhere appropriate, and reflect my current medical decision making from today. CC: This is a 67 year old male with lung cancer, seen for scheduled follow-up. INTERIM HISTORY: Cristal Gu returns for scheduled follow-up. 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 He was not COVID tested. His rash to his face continues to improve. He currently does not have a follow-up with dermatology. He has not had a follow-up appointment with ENT, Dr. Tse,since his initial visit on 07/26/2021. He denies any new areas of pain. MEDICATIONS: Current Outpatient Medications Medication Sig albuterol (PROVENTIL) 2.5 mg /3 mL (0.083 %) nebulizer solution Use 2.5 mg via nebulizer. ipratropium-albuterol (DUONEB) 0.5 mg-3 mg(2.5 mg base)/3 mL nebu Inhale 3 mL as instructed every 6hours as needed for wheezing/shortness of breath. 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 Several indeterminate subcentimeter [...] prior study, as above. 04/12/2022 Bone scan ([facility]) Degenerative findings. No evidence of metastatic disease. 05/23/2022 MRI Lumbar Spine Impression: Heterogeneous appearance of the vertebral bodies stable from the prior exam, nonspecific. No enhancing mass. Mild to moderate discogenic changes L2-S1 grossly stable. For minimal stenosis at several levels asdetailed. 10/31/2021 Brain MRI IMPRESSION: No evidence of [...] adjuvant chemotherapy with cisplatin plus pemetrexed. He receivedhis first cycle on 10/26/2021, and it was [...] neck CT. The patient was seen by [facility] on 07/26/20[facility]. Clinical evaluation most consistent with inflammatory/post-infectious findings. Nosuspicion for malignancy. The patient apparently chews tobacco, and was advised to discontinue. Follow-up with ENT as indicated. Will discuss with Dr. Grigsby if patient needs to be referred back to ENT. Patricia Miller APRN.CNP I spent a total of 30 minutes on the date of the service which included preparing to see the patient, [id number]-gs-[id number] patient care, completing clinical documentation, obtaining and/or reviewing separately obtained history, performing a medically appropriate examination, counseling and educating the pat ient/family/caregiver, ordering medications, tests, or procedures, independently interpreting results (not separately reported), and communicating results to the patient/family/caregiver. I spent a total of 30 minutes on the date of the service which included preparing to see the patient, vfsd-qg-vpyb patient care, completing clinical documentation, obtaining and/or reviewing separately obtained history, performing a medically appropriate examination, counseling and educating the pat ient/family/caregiver, ordering medications, tests, or procedures, independently interpreting results (not separately reported), and communicating results to the patient/family/caregiver. documented in this encounterUniversity Hospitals Portage Medical Center11-22-2022 History of Present illness Narrative* G Erasto Limon MD - 06/11/2022 1:28 PM EST Radiation Oncology - Follow Up Note PATIENT NAME: Cristal Gu PATIENT DIAGNOSIS: Lung cancer, left upper lobe, pleomorphic carcinoma, stage IIb [id number], stage IIB AJCC 8th edition (chest wall [...] lower back pain. He underwent evaluation with MRIwithout evidence of metastatic disease though degenerative changes [...] nebu Inhale 3 mL as instructed every 6hours as needed for wheezing/shortness of breath. REVIEW [...] left upper lobe, pleomorphic carcinoma, stage IIb [id number], stage IIB AJCC 8th edition (chest wall [...] by: Jyoti Limon MD cc: Christina Azul [address] [place] [id number] No referring provider defined for this encounter. documented in this encounterUniversity Hospitals Portage Medical Center11-18-2022 Miscellaneous Notes* Telephone Encounter - Rosibel Wheeler LPN - 06/07/2022 11:32 AM EST Pérez called to notify Dr. Limon that last week he started with a productive cough of whitish colored mucus which then turned yellow. He saw Dr. Azul PCP, on 06/03/22, who prescribed albuterol nebulizer tx. 06/05/22, he called Dr. Azul and notified him of productive cough with yellowish-green mucus. He was started on an antibiotic on 06/05/22. He is wondering if he shouldhave a cxr. I said he should probably check with Dr. Azul since he is managing his concerns at this time. He said he will see how he feels over the weekend and call Dr. Azul on Friday if necessary. The missed post treatment follow up with Dr. Limon has been rescheduled to 06/11/22 at 1:45. Rosibel Wheeler LPN documented in this encounterUniversity Hospitals Portage Medical Center11-17-2022 Miscellaneous Notes* Telephone Encounter - Yanira Infante - 06/06/2022 9:13 AM EST Called patient to follow up on missed appointment with Radha Palmer PA-C on 05/16. Unable to reach patient or leave a message at the number provided - mailbox is full. documented in this [facility]10-24-2022 Miscellaneous Notes* Telephone Encounter - Yanira Montilla - 05/13/2022 3:07 PM EDT Called patient regarding upcoming scheduled appointment with JOHN Forrest on 05/16. Spoke with patient and confirmed his appointment date, time & location. Patient has a to go to that day but expects to be able to make the appointment. He declined to reschedule for another date.He has been painting quite a bit and feels it is affecting his breathing. Patient has no immediate needs at this time. documented in this [facility]10-12-2022 NotePROCEDURE: XR HIP RT 2 3V WO PELVIS HISTORY: Hip pain COMPARISON: None. FINDINGS: BONES:No fracture, acute abnormality, or significant arthropathy. SOFT TISSUES:No visible soft tissue swelling. EFFUSION:None visible. OTHER: Atherosclerotic coronary artery disease. Endovascular stent within iliac artery. IMPRESSION: 1. No acute bone abnormality or significant degenerative joint disease of the right hip. Electronically authenticated by: TRUDY GUTIERREZ Date: 2022-05-01 17:28[facility]10-12-20[facility] History of Present illness Narrative* Jyoti Limon MD - 05/01/2022 12:00 AM EDT [facility] Radiation Oncology Department RADIATION ONCOLOGY - COMPLETION NOTE PATIENT: CRISTAL GUDOB: 1955 DATES OF TREATMENT: 03/26/2022- 05/01/2022 DIAGNOSIS: Lung cancer, left upper lobe, pleomorphic carcinoma, stage IIb [id number], stage IIB AJCC 8th edition (chest wall [...] able to complete treatment as intended without breakinterruption or modification of prescription plan. The patient will be seen again in 2 weeks for post radiation follow-up. Staff Physician Erasto Limon M.D. / WST 24:03 PM documented in this encounterUniversity Hospitals Portage Medical Center10-10-2022 Miscellaneous Notes* Telephone Encounter - Domonique Estrada RN - 04/29/2022 3:10 PM EDT Provided code for pharmacy, patient's medication ran through. * Telephone Encounter - TIFFANY Navarro - 04/29/2022 2:51 PM EDT [facility] [place] called stating they need a dx code for ipratropium documented in this encounterUniversity Hospitals Portage Medical Center10-10-2022 Miscellaneous Notes* Telephone Encounter - Merissa Fam RN - 04/29/2022 9:17 AM EDT Pt I today for radiation and was finally able to get nebulizer machine. He does not have the duonebmedication at home and pharmacy will not fill it as it was an old prescription. Please review and sign new Rx if agreeable. Thank you! Merissa Fam RN documented in this encounterUniversity Hospitals Portage Medical Center10-03-2022 History of Present illness Narrative* G Erasto Limon MD - 04/22/2022 11:25 AM EDT Radiation Oncology - On Treatment Review (OTR) Note PATIENT NAME: Cristal Gu PATIENT DIAGNOSIS: Lung cancer, left upper lobe, pleomorphic carcinoma, stage IIb [id number], stage IIB AJCC 8th edition (chest wall [...] outlined. Jyoti Limon MD documented in this encounterUniversity Hospitals Portage Medical Center09-28-2022 Miscellaneous Notes* Telephone Encounter - Virgie Dominguez - 04/17/2022 11:14 AM EDT Patient coming in to see you on Friday04/30/22 for follow up with labs. Please add lab orders. Thanks. Virgie Dominguez MA documented in this encounterUniversity Hospitals Portage Medical Center09-26-2022 History of Present illness Narrative* Jyoti Limon MD - 04/15/2022 9:13 AM EDT Radiation Oncology - On Treatment Review (OTR) Note PATIENT NAME: Cristal Gu PATIENT DIAGNOSIS: Lung cancer, left upper lobe, pleomorphic carcinoma, stage IIb [id number], stage IIB AJCC 8th edition (chest wall [...] well. Jyoti Limon MD documented in this encounterUniversity Hospitals Portage Medical Center09-22-2022 Miscellaneous Notes* Telephone Encounter - Rosibel Wheeler LPN - 04/11/2022 12:19 PM EDT Patient states pharmacy did contact him and they are working on it. Rosibel Wheeler LPN * Telephone Encounter - Rosibel Wheeler LPN - 04/01/2022 1:17 PM EDT I called [facility] in [place] to get an update on [employer]'s nebulizer as he said he does not have one at home. Ofe in the pharmacy is going to look into it to see why this prescription was never completed. Laurence call the patient to get updated insurance information. Rosibel Wheeler LPN documented in this encounterUniversity Hospitals Portage Medical Center09-19-2022 History of Present illness Narrative* Jyoti Limon MD - 04/08/2022 10:18 AM EDT Radiation Oncology - On Treatment Review (OTR) Note PATIENT NAME: Cristal Gu PATIENT DIAGNOSIS: Lung cancer, left upper lobe, pleomorphic carcinoma, stage IIb [id number], stage IIB AJCC 8th edition (chest wall [...] reviewed. Jyoti Limon MD documented in this encounterUniversity Hospitals Portage Medical Center09-14-2022 History of Present illness Narrative* Dominique Isaac, RD - 04/03/2022 9:03 AM EDT Oncology Nutrition Therapy Initial Assessment RECOMMENDED MALNUTRITION [...] issues, denies current N/V/D/C. Pt denies food al lergies/intolerances. Appetite appears to be varied, Intakes are [...] Dosing Weight: 58.9 kg Estimated kilocalorie needs: 2557-7826 kilocalories determined by 30-35 kcal/kg Estimated protein needs: 59-88 grams determined by 1.0-1.5 g/kg Dosing weight Estimated fluid needs: ~9300-6241 milliliters based on 1 mL per kcal [...] nebu Inhale 3 mL as instructed every 6hours as needed for wheezing/shortness of breath. 120 [...] Gray MS, RDN, LD documented in this encounterCleveland [id number] Miscellaneous Notes* Telephone Encounter - Carolyn Pérez MA - 04/01/2022 3:45 PM EDT [facility] if [facility] RX can get Fax over The pharmacy need a new Rx [phone] Fax The code need to be on the RX documented in this encounterUniversity Hospitals Portage Medical Center09-12-2022 History of Present illness Narrative* Jyoti Limon MD - 04/01/2022 9:43 AM EDT Radiation Oncology - On Treatment Review (OTR) Note PATIENT NAME: Cristal Gu PATIENT DIAGNOSIS: Lung cancer, left upper lobe, pleomorphic carcinoma, stage IIb [id number], stage IIB AJCC 8th edition (chest wall [...] outlined. Jyoti Limon MD documented in this encounterUniversity Hospitals Portage Medical Center09-06-2022 History of Present illness Narrative* Jyoti Limon MD - 03/26/2022 9:48 AM EDT Radiation Oncology - On Treatment Review (OTR) Note PATIENT NAME: Cristal Gu PATIENT DIAGNOSIS: Lung cancer, left upper lobe, pleomorphic carcinoma, stage IIb [id number], stage IIB AJCC 8th edition (chest wall [...] prescribed. Jyoti Limon MD documented in this encounterUniversity Hospitals Portage Medical Center08-31-2022 History of Present illness Narrative* Jyoti Limon MD - 03/20/2022 4:42 PM EDT sim documented in this encounterUniversity Hospitals Portage Medical Center08-30-2022 History of Present illness Narrative* Patricia Miller APRN.RONAL - 03/19/2022 9:18 AM EDT PATIENT NAME: Cristal Gu DATE: 03/19/2022 PRIMARY CARE PHYSICIAN: Dr. Christina Azul OTHER PHYSICIANS: Dr. UmDr. Marianne Condon, Dr. Limon Portions of this encounter note have been copied from the note from 02/20/2022 and has been updated where appropriate, and reflect my current medical decision making from today. CC: This is a 66 year old male with lung cancer, seen for scheduled follow-up. INTERIM HISTORY: [facility] returns for follow-up and labs. He saw dermatology and was started on 12 days of minocycline. The skin rash did not clear up totally so he was given another 14 days ofminocycline. The rash is gradually improving. Patient states [...] nebu Inhale 3 mL as instructed every 6hours as needed for wheezing/shortness of breath. 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 After [...] neck CT. The patient was seen by [facility] on 07/26/2021. Clinical evaluation most consistent with inflammatory/post-infectious findings. Nosuspicion for malignancy. The patient apparently chews tobacco, [...] Patient was told it is likely rosacea. Patricia Miller APRN.RONAL I spent a total of 30 minutes on the date of the service which included preparing to see the patient, diwt-av-vreu patient care, completing clinical documentation, obtaining and/or reviewing separately obtained history, performing a medically appropriate examination, counseling and educating the pat ient/family/caregiver, ordering medications, tests, or procedures, independently interpreting results (not separately reported), and communicating results to the patient/family/caregiver. documented in this encounterUniversity Hospitals Portage Medical Center08-25-2022 History of Present illness Narrative* G Erasto Limon MD - 03/14/2022 12:00 AM EDT CRISTAL GU [id number] 03/14/2022 [facility] Radiation Oncology Department SIMULATION NOTE DATE OF SIMULATION: 03/14/2022 THERAPIST: Barbara Severino MACHINE: [employer] DIAGNOSIS: Malignant neoplasm of upper lobe, left bronchus or lungC34.12 AREA: LUNG CONTRAST: None <Select> Consent in Epic: Yes PATIENT POSITION: Supine. FIXATION DEVICE: In order to achieve accurate and reproducible treatments, the patient is immobilized with THE WINGBOARD, B PAD, CUSTOM VACBAG, SBRT KNEE SPONGE 4DCT WAS UTILIZED AT [facility] A time-out was conducted and recorded by [...] will be completed per nursing. Electronically Signed Erasto Limon M.D. / NRS 21:18 PM documented in this encounterUniversity Hospitals Portage Medical Center08-25-2022 History of Present illness Narrative* Jyoti Limon MD - 03/14/2022 12:00 AM EDT CRISTAL GU [id number] 03/14/2022 [facility] Department of Radiation Oncology Treatment Planning Note For reasons stated in the consult note, Cristal Gu is a candidate for radiation therapy. Based on review and interpretation of the relevant diagnostic studies together with the exam findings, Cristal Gu was simulated on 03/14/2022 at which time the target volume and/or requisite hall were d elineated, as indicated in the simulation note, to be treated according to the prescription. An ITV was created from all the phases of respiratory motion captured by the 4DCT image sets. Motion management allowed for design of patient specific planning target volume and reduced the radiationexposure to normal tissues. The treatment target and [...] using conventional or 3D planning. The specific doserequirements for the PTV, organs at risk and dose-volume histograms are contained in this treatmentplan and/or elsewhere in the medical record. A completed summary of this plan dated 03/21/22 incorporated herein by reference includes dose, beam arrangements, energy, blocking, isodose distribution, and/or ports and DVH. Electronically Signed Erasto Limon M.D. 24:37 PM documented in this encounterUniversity Hospitals Portage Medical Center08-10-2022 Miscellaneous Notes* Telephone Encounter - Rolanda Oneil Pss - 02/27/2022 12:09 PM EDT Called [facility] spoke with Delfina. They received this referral and patient was seen at their office today by Cristy davey PA at 10:00. They will be faxing her note from this visit to our office once it is completed. Rolanda Oneil Pss * Telephone Encounter - Vanessa Fam [facility] - 02/26/2022 2:05 PM EDT Records faxed to [facility]. * Telephone Encounter - Ebony Barcenas [facility] - 02/26/2022 12:58 PM EDT [facility] scheduling out to April. Tomasa will you please fax records to [facility] jose [phone]. They will call pt to schedule, demo in your box. Thanks! * Telephone Encounter - Denita Rai RN - 02/26/2022 12:50 PM EDT Clerical: Please schedule pt w/ [facility]. Pt willing to see local or [facility]. Thanks, Denita Rai RN * Telephone Encounter - Patricia Miller APRN.CNP - 02/26/2022 12:49 PM EDT Signed. Patricia Miller APRN.RONAL * Telephone Encounter - Denita Rai RN - 02/26/2022 12:09 PM EDT Pt reports that the rash on his face is worse. Describes rash as red, raised, and blotchy. Itchy attimes. Reports that areas of skin are beginning to peel off. Using Mupirocin 2% ointment w/o any improvement. Notes the rash is keeping him from going outside of the house. Reports that he sits in his room and drinks beer all day. Pt has not seen a elementary summer school teacher for his skin issue. Consult order pended if you agree. Denita Rai RN documented in this encounterUniversity Hospitals Portage Medical Center08-03-2022 History of Present illness Narrative* Patricia Miller APRN.RONAL - 02/20/2022 2:26 PM EDT PATIENT NAME: Cristal Gu DATE: 02/20/2022 PRIMARY CARE PHYSICIAN: Dr. [...] cancer, seen for scheduled follow-up. INTERIM HISTORY: Cristal Gu returns for follow-up and labs. At his last visit he was found to be anemic with a hemoglobin of 6.7. He received 2 units of PRBCs and tolerated it well. His stool wasnegative for occult blood. His iron studies did not reveal iron deficiency anemia. The patient is feeling fair today. He is forcing himself to stay active and working on projects. He believes that the skin rash is still getting worse. The skin rash is still pruritic. He is applying dgpx-axr-gbowdhuzvlgso. He denies fevers, chills, night sweats and [...] nebu Inhale 3 mL as instructed every 6hours as needed for wheezing/shortness of breath. 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 After [...] neck CT. The patient was seen by [facility] on 07/26/2021. Clinical evaluation most consistent with inflammatory/post-infectious findings. Nosuspicion for malignancy. The patient apparently chews tobacco, [...] Today his hemoglobin has improved to 10.2. Patricia Miller APRN.SOLAR PANEL TECHNICIAN documented in this encounterUniversity Hospitals Portage Medical Center07-25-2022 Miscellaneous Notes* Telephone Encounter - Denita Rai RN - 02/11/2022 11:36 AM EDT Pt notified and verbalizes understanding. Advised he call back if his symptoms persist. Denita Rai RN * Telephone Encounter - Denita Rai RN - 02/11/2022 11:13 AM EDT Script pended. Call placed to pt. No answer. Voicemail full. Unable to leave a message. Denita Rai RN * Telephone Encounter - Patricia Miller APRN.CNP - 02/11/2022 10:25 AM EDT Can try a medrol-dose pack. Thanks. Patricia Miller APRN.RONAL * Telephone Encounter - Denita Rai RN - 02/11/2022 10:13 AM EDT Pt c/o sores/rash to face, neck, shoulders, [...] possible. Denita Rai RN documented in this encounterUniversity Hospitals Portage Medical Center07-21-2022 Miscellaneous Notes* Telephone Encounter - Lisa Figueroa - 02/07/2022 4:30 PM EDT Patient sent to [facility] for TSC. Faxed order to [facility] scheduling February 07, 2022 4:31 PM And the department is going to work with patient tomorrow. Lisa Figueroa documented in this encounterUniversity Hospitals Portage Medical Center07-21-2022 History of Present illness Narrative* Patricia Miller APRN.SOLAR PANEL TECHNICIAN - 02/07/2022 2:30 PM EDT PATIENT NAME: Cristal Gu DATE: 02/07/2022 PRIMARY CARE PHYSICIAN: Dr. [...] cancer, seen for scheduled follow-up. INTERIM HISTORY: Cristal Gu returns for follow-up and labs. He received his last treatment withcarboplatin and pemetrexed on 01/22/2022. There has been [...] nebu Inhale 3 mL as instructed every 6hours as needed for wheezing/shortness of breath. 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 After [...] neck CT. The patient was seen by [facility] on 07/26/2021. Clinical evaluation most consistent with inflammatory/post-infectious findings. Nosuspicion for malignancy. The patient apparently chews tobacco, [...] patient to have 2 units of PRBCs. Patricia Miller APRN.RONAL documented in this encounterUniversity Hospitals Portage Medical Center07-13-2022 Nurse Note* Merissa Fam RN - 01/30/2022 5:02 PM EDT Radiation Therapy - Patient Education Note PATIENT NAME: Cristal Gu PATIENT January 30, 2022 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 Signed by: Merissa Fam RN documented in this encounterUniversity Hospitals Portage Medical Center07-13-2022 History of Present illness Narrative* G Erasto Limon MD - 01/30/2022 3:00 PM EDT Radiation Oncology -follow-up note PATIENT NAME: Cristal Gu PATIENT REQUESTING PROVIDER: Dr. Grigsby DIAGNOSIS: 66 year old male with lung cancer, left upper lobe, pleomorphic carcinoma, stage IIb [id number], stage IIB AJCC 8th edition (chest wall invasion), PD-L1 95%, KRAS G12C mutation present HPI: Patient initiated systemic chemotherapy in October with cisplatin and pemetrexed . Patient had initial issues with worsening renal function, resulting in changing chemotherapy to carboplatin plus Alimta. Patient has completed 4 cycles however although had issues with skin infectiondelaying the delivery of the fourth cycle. Denies chest pain. No significant cough or shortness of breath ALLERGIES No Known Allergies MEDICATIONS: Nebulizer and Compressor For Neb 1 Each as needed. Use as directed. ipratropium-albuterol (DUONEB) 0.5 mg-3 mg(2.5 mg base)/3 mL nebu Inhale 3 mL as instructed every 6hours as needed for wheezing/shortness of breath. tiotropium-olodaterol [...] DAY 2 TAKE 6 TABLETS, DAY 3 TAKE5 TABLETS, DAY 4 TAKE 4 TABLETS, DAY [...] (HCC) Peripheral arterial disease (HCC) 2019 R LEAD BUSINESS ANALYST stent Prior radiation therapy, collagen vascular disease, or inflammatory bowel disease: No PAST SURGICAL HISTORY Procedure Laterality Date BACK SURGERY HX 2019 CABG (4) VEIN GRAFTS & ARTERIAL GRAFT(S) 2016 LOWER EXTREMITY APPRAISAL COORDINATOR W/WO STENT Right 2019 right common femoral [...] left upper lobe, pleomorphic carcinoma, stage IIb [id number], stage IIB AJCC 8th edition (chest wall [...] Limon MD cc: Christina Azul [address] [place] [address] Nina Grigsby ([facility]) [address] [place] [address] [place] [address] documented in this encounterUniversity Hospitals Portage Medical Center07-12-2022 History of Present illness Narrative* Ton Cervantes CRT - 01/29/2022 7:59 AM EDT PULM FUNCTION SMARTBLOCK: Provider: Verito Whelan MD Spirometry w/BD: 1 DLCO: 1 System: 5 - [id number] documented in this encounterUniversity Hospitals Portage Medical Center07-12-2022 History of Present illness Narrative* Verito Whelan MD - 01/29/2022 7:57 AM EDT Interval history: Mr. Gu returns for follow-up. The patient underwent left upper lobectomy and mediastinal lymphadenectomy. 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 However, the surgery was canceled on [...] on presentation. 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 He smoked 75 pack years [...] DAY 2 TAKE 6 TABLETS, DAY 3 TAKE5 TABLETS, DAY 4 TAKE 4 TABLETS, DAY [...] (HCC) Peripheral arterial disease (HCC) 2019 R LEAD BUSINESS ANALYST stent PAST SURGICAL HISTORY Procedure Laterality Date BACK SURGERY HX 2019 CABG (4) VEIN GRAFTS & ARTERIAL GRAFT(S) 2016 LOWER EXTREMITY APPRAISAL COORDINATOR W/WO STENT Right 2019 right common femoral [...] lesions in the right tonsillar fossa. There hira rubbery lymph node in the upper cervical chain. Neck: Supple, no adenopathy. Back: Normal exam Lungs: Lungs clear to auscultation. No wheezing, rhonchi, rales. Sternotomy scar, deformed sternum.Well-healed left thoracotomy scar. Heart: RRR without murmur, gallop, or rubs. No ectopy Abdomen: soft, non-tender. Bowel sounds normal. No masses, organomegaly Extremities: No deformities, edema, skin discoloration, clubbing or cyanosis. Good capillary refill. Musculoskeletal: No joint swelling, deformity, or tenderness Peripheral pulses: Normal Neuro: Gait normal. 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 // IMPRESSION: Site: ID: [id number] Name: CRISTAL GU Visit Date: 05/21/2021 Doctor: Shell Mold Bonding Machine Operator: Merissa Ashley Age: 66 Date of : [...] DLCO is not hemoglobin and carboxyhemoglobin corrected. // Review Status: Not Reviewed PRE-BRONCH POST-BRONCH [...] 0.70 0.27 1.71 0.17 24 0.28 61 MCU22-15 (L/sec) 2.48 1.16 4.30 0.44 17 0.73 [...] * No suspicious FDG avid osseous lesion. Firefighter: PSCB Transcribe Date/Time: May 28 2021 9:33A [...] use this in the morning on a regula r basis before his Stiolto. Return to clinic in 3 months Verito Whelan MD Res[facility] documented in this encounterUniversity Hospitals Portage Medical Center07-12-2022 History of Present illness Narrative* RT Kaylee(R) - 01/29/2022 7:00 AM EDT Radiology Service Progress Note PATIENT NAME: Cristal Gu DATE OF SERVICE: January 29, 2022 TIME: 7:40 AM PATIENT IDENTITY VERIFICATION COMPLETED USING TWO (2) IDENTIFIERS: Name and Date of confirmedby patient verbally. FALL SCREENING: Has the patient [...] 29, 2022 7:40 AM documented in this encounterUniversity Hospitals Portage Medical Center07-05-2022 History of Present illness Narrative* Nina Grigsby MD - 01/22/2022 7:49 AM EDT PATIENT NAME: Cristal Gu DATE: 01/22/2022 PRIMARY CARE PHYSICIAN: Dr. [...] labs revealed neutropenia, and he had evidence ofa cutaneous infection involving his left facial area. He was given antibiotics and chemotherapy washeld. On follow-up today he feels much better. The skin infection resolved with antibiotics. He hashad no fevers or other signs of ongoing [...] DAY 2 TAKE 6 TABLETS, DAY 3 TAKE5 TABLETS, DAY 4 TAKE 4 TABLETS, DAY [...] (HCC) Peripheral arterial disease (HCC) 2019 R LEAD BUSINESS ANALYST stent PAST SURGICAL HISTORY: PAST SURGICAL HISTORY Procedure Laterality Date BACK SURGERY HX 2019 CABG (4) VEIN GRAFTS & ARTERIAL GRAFT(S) 2016 LOWER EXTREMITY APPRAISAL COORDINATOR W/WO STENT Right 2019 right common femoral [...] with adjuvant chemotherapy consisting of cisplatin plus pemetrexedx4 cycles followed by adjuvant radiation therapy. After [...] today the patient is clinically stable and CBCimproved. The patient will receive cycle 4 today [...] neck CT. [facility] Clinical evaluation most consistent with inflammatory/post-infectious findings. Nosuspicion for malignancy. The patient apparently chews tobacco, [...] blood transfusion if hemoglobin drops below 8. Nina Grigsby MD documented in this encounterUniversity Hospitals Portage Medical Center06-27-2022 History of Present illness Narrative* Nina Grigsby MD - 01/14/2022 7:08 AM EDT PATIENT NAME: Cristal Gu DATE: 01/14/2022 PRIMARY CARE PHYSICIAN: Dr. [...] of chemotherapy 3 weeks ago, and tolerated itwell. 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 After [...] he will receive his fourth and final cycleof chemotherapy. He will then be referred for [...] neck CT. The patient was seen by [facility] on [facility]. Clinical evaluation most consistent with inflammatory/post-infectious findings. Nosuspicion for malignancy. The patient apparently chews tobacco, [...] blood transfusion if hemoglobin drops below 8. Nina Grigsby MD documented in this encounterUniversity Hospitals Portage Medical Center06-06-2022 Miscellaneous Notes* Telephone Encounter - Denita Rai RN - 12/24/2021 2:32 PM EDT Pt notified of script and verbalizes understanding. Denita Rai RN * Telephone Encounter - Nina Grigsby MD - 12/24/2021 12:31 PM EDT We will send prescription for KCl 10 M EQ's daily. Please inform the patient. Thanks, BRIke * Telephone Encounter - Kelly Hyman RN - 12/24/2021 12:24 PM EDT Potassium level 3.2 today. Pt is able to take pills without difficulty and a [facility] [place] [facility] needed. documented in this encounterUniversity Hospitals Portage Medical Center06-06-2022 History of Present illness Narrative* Denisse Campbell RN - 12/24/2021 11:53 AM EDT . documented in this encounterUniversity Hospitals Portage Medical Center06-06-2022 History of Present illness Narrative* Nina Grigsby MD - 12/24/2021 7:29 AM EDT PATIENT NAME: Cristal Gu DATE: 12/24/2021 PRIMARY CARE PHYSICIAN: Dr. [...] and is ready to proceed with treatment todayas scheduled. MEDICATIONS: Current Outpatient Medications Medication Sig [...] (HCC) Peripheral arterial disease (HCC) 2019 R LEAD BUSINESS ANALYST stent PAST SURGICAL HISTORY: PAST SURGICAL HISTORY Procedure Laterality Date BACK SURGERY HX 2019 CABG (4) VEIN GRAFTS & ARTERIAL GRAFT(S) 2016 LOWER EXTREMITY APPRAISAL COORDINATOR W/WO STENT Right 2019 right common femoral [...] with adjuvant chemotherapy consisting of cisplatin plus pemetrexedx4 cycles followed by adjuvant radiation therapy. After [...] neck CT. The patient was seen by [facility] on 07/26/2021. Clinical evaluation most consistent with inflammatory/post-infectious findings. Nosuspicion for malignancy. The patient apparently chews tobacco, [...] blood transfusion if hemoglobin drops below 8. Nina Grigsby MD documented in this encounterUniversity Hospitals Portage Medical Center05-26-2022 Miscellaneous Notes* Telephone Encounter - Yanira Montilla - 12/13/2021 1:16 PM EDT Called patient to follow up on missed testing and office visit with Dr. Whelan on 11/20. Patient'sBP was low that day and unable to come in. Patient requested to be rescheduled. Message sent to scheduling pool to reach out to patient to reschedule appointment and testing. Patient will call the office with any urgent needs. He is feeling ok at this time. documented in this encounterUniversity Hospitals Portage Medical Center05-18-2022 Miscellaneous Notes* Telephone Encounter - Denita Rai RN - 12/05/2021 10:34 AM EDT CYCLE 1/DAY 1 POST TREATMENT CALL Today's [...] better than cycle 1. Pt still doing top frame fitter t/o the day. Do you need to [...] protocol. Denita Rai RN documented in this encounterUniversity Hospitals Portage Medical Center05-16-2022 History of Present illness Narrative* Denita Rai RN - 12/03/2021 10:56 AM EDT ONCOLOGY PATIENT EDUCATION NOTE TOPIC: Chemotherapy, Medications: [...] patient, which included the importance of reporting anyfever of 100.4F (38.0C) or greater to the healthcare team as noted on the provided wallet card and/or magnet. YES Time Spent: 10 minutes REFERRAL (RECOMMENDATION): N/A Denita Rai RN documented in this encounterUniversity Hospitals Portage Medical Center05-16-2022 History of Present illness Narrative* Yusef Pandya PA-C - 12/03/2021 9:30 AM EDT PATIENT NAME: Cristal Gu DATE: 12/03/2021 PRIMARY CARE PHYSICIAN: Dr. [...] with his BP dropping to 90s systolic athome and getting dizzy when this happens. 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 After [...] We will give carbo/alimta today and see himnext week for repeat labs and toxicity check. [...] neck CT. The patient was seen by [facility] on [facility]. Clinical evaluation most consistent with inflammatory/post-infectious findings. Nosuspicion for malignancy. The patient apparently chews tobacco, [...] will follow up with PCP as scheduled. Yusef Pandya PA-C documented in this encounterUniversity Hospitals Portage Medical Center05-16-2022 Miscellaneous Notes* Telephone Encounter - Vanessa Beatty Cristel [facility] - 12/03/2021 9:01 AM EDT Records faxed. * Telephone Encounter - Alexandria Ike Spicer Sec - 11/30/2021 11:08 AM EDT Appt with PCP Dr Azul for hypotension on Friday12-07-21 1:45pm Benjie Randolphsenait is known to Dr azul but please send most recent records including med list and Blood pressure. Dr Azul has a new fax # [phone] documented in this encounterUniversity Hospitals Portage Medical Center05-13-2022 History of Present illness Narrative* Patricia Miller APRN.[facility] - 11/30/2021 10:41 AM EDT PATIENT NAME: Cristal Gu DATE: 11/30/2021 PRIMARY CARE PHYSICIAN: Dr. [...] today for an urgent visit. INTERIM HISTORY: Cristal Gu is here today for an urgent [...] by mouth three times daily. 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 After [...] neck CT. The patient was seen by [facility] on 07/26/2021. Clinical evaluation most consistent with inflammatory/post-infectious findings. Nosuspicion for malignancy. The patient apparently chews tobacco, [...] on 11/03/2021 for follow-up, labs and treatment. Patricia Miller APRN.[facility] documented in this encounterUniversity Hospitals Portage Medical Center05-13-2022 Nurse Note* Pavithra Jacinto MA - 11/30/2021 10:31 AM EDT Patient states he is feeling better today, he even went out for Breakfast. Pavithra Jacinto MA documented in this encounterUniversity Hospitals Portage Medical Center05-12-2022 Miscellaneous Notes* Telephone Encounter - Denita Rai RN - 11/29/2021 3:30 PM EDT Pt notified and agrees w/ plan. Call transferred to MONA Beck, for scheduling. BRM: CBC, CMP orders pended for tomorrow. Denita Rai RN * Telephone Encounter - Nina Grigsby MD - 11/29/2021 3:22 PM EDT Please schedule appointment tomorrow for labs and to see Patricia. In the meantime stay off the blood pressure medications. Thanks, BRM * Telephone Encounter - Denita Rai RN - 11/29/2021 2:46 PM EDT Pt reports low blood pressures. BP was [...] advise? Denita Rai RN documented in this encounterUniversity Hospitals Portage Medical Center05-09-2022 History of Present illness Narrative* Nina Grigsby MD - 11/26/2021 7:11 AM EDT PATIENT NAME: Cristal Gu DATE: 11/26/2021 PRIMARY CARE PHYSICIAN: Dr. [...] cycle of chemotherapy on 11/05/2021. He had moderatenausea and change in bowel habits (constipation followed by diarrhea), otherwise no significant side effects. Unfortunately, labs revealed significant worsening of his renal function with maximum crea tinine of 2.66 on 11/12/2021. 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 After [...] neck CT. The patient was seen by [facility] on 07/26/2021. Clinical evaluation most consistent with inflammatory/post-infectious findings. Nosuspicion for malignancy. The patient apparently chews tobacco, and was advised to discontinue. Follow-up with ENT as indicated. 6. Renal dysfunction The patient received chemotherapy with cisplatin and pemetrexed on 11/05/2021. Subsequent labs revealed significant renal dysfunction with creatinine elevation 2.66 on 11/12/2021. With IV fluids (and discontinuation of cisplatin) the patient is renal function has improved. We will monitor closely. Nina Grigsby MD documented in this encounterUniversity Hospitals Portage Medical Center05-02-2022 Miscellaneous Notes* Telephone Encounter - Denita Rai RN - 11/19/2021 2:20 PM EDT Per Jaclyn Azul's office, pt has an appointment tomorrow @ 3 PM. Denita Rai RN * Telephone Encounter - Yusef Padnya PA-C - 11/19/2021 12:17 PM EDT Bmp and iv fluid orders placed for 11/21/21 Yusef Pandya PA-C * Telephone Encounter - Ros Navarro RN - 11/19/2021 11:47 AM EDT Patient received IVF today. BP 123/71 recheck. KERRY OlsonCC has discussed BP med management and willcoordinate follow up with PCP. Yusef will order additional IV hydration Friday with lab recheck as Cr is better but still elevated at 2.09 Ros Navarro RN documented in this encounterUniversity Hospitals Portage Medical Center05-02-2022 Miscellaneous Notes* Telephone Encounter - Dentia Rai RN - 11/19/2021 11:39 AM EDT Voicemail message received from Jaclyn @ Dr Azul's office. They can see pt tomorrow @ 1030 AM. Pt notified and states that he has an appointment in [place] tomorrow. Call placed to Dr Azul's office. Message left w/ office voicemail informing them of the above. Requested they contact the pt to schedule an appointment. Also advised pt to reach out to Dr Azul's office as well. Pt verbalizes understanding and plans to call them when he gets home. Will also continue to monitor his pressures at home. Denita Rai RN * Telephone Encounter - Denita Rai RN - 11/19/2021 11:35 AM EDT Pt was admitted over the weekend due [...] left w/ office voicemail requesting call back. Denita Rai RN documented in this encounterUniversity Hospitals Portage Medical Center05-02-2022 Miscellaneous Notes* Telephone Encounter - Denita Rai RN - 11/19/2021 9:42 AM EDT DISCHARGE CALL BACK Today's date: November 19, 2021 Notified of Pt discharge by: Hospital records requested. Patient discharged on 11/18/2021 from [facility] to Home Primary Cancer Diagnosis: Lung Cancer Admitting Diagnosis: Hypertension, Acute renal failure Discharge Summary/SBAR reviewed: Yes Handoff Discussed with Transitional Automatic Lathe Operator: NO Psychosocial Risk Factors: None If patient discharged to SNF/Rehab Facility, phone call completed to reinforce discharge instructions and follow up: N/A Call Disposition: Admission unrelated to cancer diagnosis/treatment. Spoke w/ pt today who reports his medications were adjusted while admitted. Isosorbide increased to 30 mg BID and Metoprolol increased to 50 mg BID.Sent home w/ Clonidine 0.1 mg TID as well. Pt's systolic BP is 87 while in the office today. C/o feeling fatigued and woozy . Call placed to pt's PCP, Dr Azul. No answer at desk. Message left requesting call back. Denita Rai RN documented in this encounterUniversity Hospitals Portage Medical Center04-29-2022 Miscellaneous Notes* Telephone Encounter - Denita Rai RN - 11/16/2021 4:41 PM EDT Pt notified and verbalizes understanding. Agrees to go to [facility] ER for eval. Report phoned to Kelli @ [facility]. Med list and today's labs faxed. Denita Rai RN * Telephone Encounter - Yusef Pandya PA-C - 11/16/2021 4:33 PM EDT With his current kidney function and BP elevation, it is best he go to ER Yusef Pandya PA-C * Telephone Encounter - Denita Rai RN - 11/16/2021 4:24 PM EDT Pt's BP in treatment today was 187/113. Repeated at home just now was 184/111. Pt notes he had a migraine like headache last night. Dull headache today. Takes Metoprolol 25 mg BID as prescribed per his [facility] Regenerator. Advised he notify his benefits analyst of his readings. Any other suggestions for him? Should he go to the ER since it is so late in the day? Denita Rai RN documented in this encounterUniversity Hospitals Portage Medical Center04-29-2022 Miscellaneous Notes* Telephone Encounter - Yusef Pandya PA-C - 11/16/2021 11:23 AM EDT Orders signed Yusef Pandya PA-C * Telephone Encounter - Denita Rai RN - 11/16/2021 10:10 AM EDT Pt here for repeat BMP and IV fluids. Labs drawn today w/ IV start. Creat 2.33. Nurse reports the pt's skin is dry w/ poor turgor. Pt notes that he is drinking ice water at home. Had [address] Grigsby notified of the above and instructs to have pt return on Friday, 11/19, for repeat labs andIV fluids. Dr's recommendations reviewed w/ pt. Instructed pt to increase his fluid intake over the weekend. Advised he avoid alcohol and caffeine. Pt verbalizes understanding and agrees. Mika, MONA, to schedule appointment. BRM/Yusef: Lab order pended. Please place orders for IV fluids. Thanks! Denita Rai RN documented in this encounterUniversity Hospitals Portage Medical Center04-29-2022 History of Present illness Narrative* Vanessa Cruz RN - 11/16/2021 9:17 AM EDT Creat 2.33. Catie, rn care manager spoke with Dr. Grigsby and to patient. Patient is to come in on Friday for repeat labs and IVF. Vanessa Cruz RN * Aurelia Bradley RN - 11/16/2021 9:05 AM EDT Pt took BP meds at about 0930, he will recheck his BP at home in 2 hours. Aurelia Bradley RN documented in this encounterUniversity Hospitals Portage Medical Center04-27-2022 Miscellaneous Notes* Telephone Encounter - Yusef Pandya PA-C - 11/14/2021 12:09 PM EDT Done Yusef Pandya PA-C * Telephone Encounter - Denita Rai RN - 11/14/2021 11:09 AM EDT BRM/Yusef: Lab order pended. In addition, please place fluid orders for tomorrow and Dank. Thanks! Denita Rai RN * Telephone Encounter - Lisa Figueroa - 11/14/2021 10:39 AM EDT Patient added to treatment schedule. Lisa Josénancy * Telephone Encounter - Denita Rai RN - 11/14/2021 10:27 AM EDT Today's creat 2.41. Labs reviewed per Dr Grigsby who orders the followin. Given 1 Liter NS tomorrow and Friday. 2. Repeat BMP on Friday. Pt notified of the above and verbalizes understanding. Clerical: Pt will be in @ 230 tomorrow and Friday. Please add him to the treatment schedule. Thanks! documented in this encounterUniversity Hospitals Portage Medical Center04-26-2022 History of Present illness Narrative* MARGARET Finnegan - 11/13/2021 3:59 PM EDT SOCIAL WORK FOLLOW UP NOTE: [facility] Date of service:11/13/21 [place] Riccardo is being seen for a follow up [...] as appropriate. SUMA Finnegan documented in this encounterUniversity Hospitals Portage Medical Center04-26-2022 History of Present illness Narrative* Vanessa Cruz RN - 11/13/2021 11:35 AM EDT IVF today and labs tomorrow. Vanessa Cruz RN documented in this encounterUniversity Hospitals Portage Medical Center04-25-2022 Miscellaneous Notes* Telephone Encounter - Yusef Pandya PA-C - 11/12/2021 12:23 PM EDT Orders signed Yusef Pandya PA-C * Telephone Encounter - Denita Rai RN - 11/12/2021 12:11 PM EDT Pt notified and verbalizes understanding. WILIAM/Yusef: BMP orders for Friday pended. Please review and sign. Thanks! Denita Rai RN * Telephone Encounter - Denita Rai RN - 11/12/2021 12:08 PM EDT ----- Message from Nina Grigsby MD sent at 11/12/2021 12:07 PM EDT ----- Please inform the patient that his kidney function worsened, most likely a side effect of the chemo. He should come in today and tomorrow for IV fluids. Check labs again on 11/14. documented in this encounterUniversity Hospitals Portage Medical Center04-22-2022 Miscellaneous Notes* Telephone Encounter - Denita Rai RN - 11/09/2021 10:07 AM EDT CYCLE 1/DAY 1 POST TREATMENT CALL Today's [...] pt to take a dose of Zofran nowand continue q 8 hours w/ compazine in [...] protocol. Denita Rai RN documented in this encounterUniversity Hospitals Portage Medical Center04-18-2022 History of Present illness Narrative* Patricia Miller APRN.SOLAR PANEL TECHNICIAN - 11/05/2021 9:00 AM EDT PATIENT NAME: Cristal Gu DATE: 11/05/2021 (Elements copied from Dr. Nina Grigsby's note dated 10/22/2021, have been reviewed and updated where appropriate, and all reflect current assessment and medical decision making during today's encounter, November 05, 2021) PRIMARY CARE PHYSICIAN: Dr. Christina Azul OTHER PHYSICIANS: Dr. Verito Whelan, Dr. Marianne Fields CC: This is a 66 year old male with recently diagnosed lung caner here to start treatment. INTERIM HISTORY: Cristal Gu returns for follow-up and to begin treatment with cisplatin and pemetrexed. Overall, he is doing fairly well today. He denies any unusual pain. He states that as long as he breathes through his nose his breathing is okay. He notices when he breathes through his mouthhe has some shortness of breath. 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 Status post left upper lobectomy and [...] care would be adjuvant chemotherapy with a ekuk doublet followed by adjuvant radiation therapy. 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 The patient would be eligible for our current alchemist protocol enrolling patients with resected non-small cell for analysis, followed by a second enrollment based on specific mutations -in this case the elevated PD-L1. Hewould then be randomized to adjuvant chemotherapy alone, [...] neck CT. The patient was seen by [facility] on 07/26/2021. Clinical evaluation most consistent with inflammatory/post-infectious findings. Nosuspicion for malignancy. The patient apparently chews tobacco, and was advised to discontinue. Follow-up with ENT as indicated. Patricia Miller APRN.RONAL documented in this encounterUniversity Hospitals Portage Medical Center04-13-2022 History of Present illness Narrative* Jacklyn Rios RN - 10/31/2021 2:00 PM EDT Radiology Service Progress Note DATE OF SERVICE: [...] Right forearm with an Angio cath: 22 gauge.A Saline lock was inserted per protocol. IV SITE APPEARANCE: Clean,Dry and Intact SIGNATURE: Jacklyn Rios RN PATIENT NAME: Cristal Gu DATE: October 31, 2021 TIME: 2:07 PM * Iwona Cassidy MRI Tech - 10/31/2021 2:00 PM EDT Radiology Service Progress Note PATIENT NAME: Cristal Gu DATE OF SERVICE: October 31, 2021 TIME: 2:46 PM PATIENT IDENTITY VERIFICATION COMPLETED USING TWO (2) IDENTIFIERS: Name and Date of confirmedby patient verbally. FALL SCREENING: Has the patient had 2 falls in the last year or 1 fall with injury or currently using an Ambulatory Assistive Device (Walker, Cane, Wheelchair, Crutches, etc.)? No PATIENT GENDER DATA: PATIENT RELEVANT IMPLANT DATA REVIEWED: Yes, omnilink r iliac stent 03/30/2019 outside hospital RADIOLOGY DEPARTMENT: MR; Exam(s) Completed: Head: Routine Brain 13cc dotarem existing r forearm iv, Chase Rios RN PERIPHERAL IV DATA: Site assessment: Clean,Dry and Intact, Site disposition Discontinued Iwona Cassidy A.A.S.,RT (R) (CT)(MR) October 31, 2021 2:46 PM documented in this encounterUniversity Hospitals Portage Medical Center04-12-2022 Miscellaneous Notes* Telephone Encounter - Denita Rai RN - 10/30/2021 10:33 AM EDT Spoke w/ Jaz regarding pt's MRI. Informed her that the pt is currently scheduled to have this done @ [facility] in [place]. No need to schedule w/ [facility] at this time. Informed her that the pt is aware of his [place] appointment. Denita Rai RN * Telephone Encounter - Denita Rai RN - 10/30/2021 10:22 AM EDT 3rd attempt made to contact Jaz @ [facility] Scheduling. No answer. Message left requesting call back. Denita Rai RN * Telephone Encounter - Denita Rai RN - 10/29/2021 11:27 AM EDT 2nd attempt made to contact Jaz @ [facility]. No answer. Message left requesting call back. Denita Rai RN * Telephone Encounter - Denita Rai RN - 10/26/2021 3:40 PM EDT Voicemail message received from [facility] Central Scheduling requesting to speak w/ a nurse regarding pt's MRI. Call placed to number provided. No answer. Message left requesting call back. Denita Rai RN documented in this encounterUniversity Hospitals Portage Medical Center04-12-2022 Miscellaneous Notes* Telephone Encounter - Denita Rai RN - 10/30/2021 8:59 AM EDT FYI: Pt does not wish to enroll in a trial at this time. Denita Rai RN documented in this encounterUniversity Hospitals Portage Medical Center04-11-2022 Miscellaneous Notes* Telephone Encounter - Patricia Miller APRN.CNP - 10/29/2021 11:25 AM EDT The following approved medication requests have been transmitted electronically. Signed Prescriptions Disp Refills folic acid 1 mg tablet 90 tablet 1 Sig: Take 1 tablet by mouth once daily. Authorizing Provider: PATRICIA MILLER APRN.CNP * Telephone Encounter - Denita Rai RN - 10/29/2021 10:45 AM EDT Script for folic acid pended. Please review and approve. Thanks! Denita Rai RN documented in this encounterUniversity Hospitals Portage Medical Center04-11-2022 History of Present illness Narrative* Denita Rai RN - 10/29/2021 10:58 AM EDT Automatic Lathe Operator Pre Chemo Patient identified by name and date of . YES Confirmed date and time for chemotherapy ? YES Other appointments (labs, imaging) discussed? YES Discussed where to park (director cardiovascular), charge for parking NO Discussed where to [...] treatment. YES Other topics discussed, interventions needed: NA Denita Rai RN * Denita Rai RN - 10/29/2021 10:55 AM EDT ONCOLOGY PATIENT EDUCATION NOTE TOPIC: Chemotherapy, Medications: [...] patient, which included the importance of reporting anyfever of 100.4F (38.0C) or greater to the healthcare team as noted on the provided wallet card and/or magnet. YES - 4th Darren Information. YES - Patient services information. YES *B12 administered at today's appointment. Time Spent: 43 minutes REFERRAL (RECOMMENDATION): N/A Denita Rai RN documented in this encounterUniversity Hospitals Portage Medical Center04-11-2022 History of Present illness Narrative* Katlin Omer, [facility] - 10/29/2021 10:53 AM EDT Images from the original note were not included. [facility] [place] Department of Pharmacy Oncology Pharmacy Medication Education Patient Name: Cristal Gu Primary Oncologist: Dr. Grigsby Diagnosis: Malignant neoplasm of upper lobe of left lung Cristal Gu is a 66 year old patient here today for medication education for IV CISPLATIN and PEMETREXED . Drug Interactions: Clinically significant interactions with chemotherapy, immunosuppression, or other standard of caretreatment plan medications anticipated: No. There are no [...] patient Katlin Omer RPh documented in this encounterUniversity Hospitals Portage Medical Center04-08-2022 Miscellaneous Notes* Telephone Encounter - Bernadine Escobar - 10/26/2021 9:54 AM EDT Added to schedule * Telephone Encounter - Denita Rai RN - 10/26/2021 9:50 AM EDT Pt did not show for yesterday's education appointment. Spoke w/ pt who notes he forgot. Clerical: Pt will be in on Friday, 10/29 @ 10 AM for education. Please add him to my schedule. Thanks! Denita Rai RN documented in this encounterUniversity Hospitals Portage Medical Center04-07-2022 Miscellaneous Notes* Telephone Encounter - Denita Rai RN - 10/25/2021 8:10 AM EDT Scripts for antiemetics and folic acid pended. Please review and approve. Thanks, Denita Rai RN documented in this encounterUniversity Hospitals Portage Medical Center04-06-2022 History of Present illness Narrative* G Erasto Limon MD - 10/24/2021 3:02 PM EDT Radiation Oncology - New Patient/Consult Note PATIENT NAME: Cristal Gu PATIENT REQUESTING PROVIDER: Dr. Grigsby DIAGNOSIS: 66 year old male with lung cancer, left upper lobe, pleomorphic carcinoma, stage IIb [id number], stage IIB AJCC 8th edition (chest wall [...] an increasing size of the left upper lobelesion. He underwent PET scan 05/28/2021 demonstratin. NECK: [...] upper lobe wedge resection followed by completion lobectomyand lymph node dissection. Pathology demonstrating: FINAL DIAGNOSIS [...] tumor Number of Lymph Nodes Examined 12 [place]il[place] Site(s) Examined 5: Subaortic / aortopulmonary (AP) / AP window 6: Para-aortic (ascending aorta or phrenic) 9L: Pulmonary ligament 10L: Hilar 11L: Interlobar 12L: Lobar Left: Hilar/peribronchial PATHOLOGIC STAGE CLASSIFICATION (pTNM, AJCC 8th Edition) The suffix m (or a specific number) should only be used in the setting of multifocal ground-glass /lepidic nodules that histologically present as adenocarcinomas with [...] or other issues. He is here today todiscuss potential postsurgical adjuvant treatments. Focused ROS: Fatigue: [...] (HCC) Peripheral arterial disease (HCC) 2019 R LEAD BUSINESS ANALYST stent Prior radiation therapy, collagen vascular disease, or inflammatory bowel disease: No PAST SURGICAL HISTORY Procedure Laterality Date BACK SURGERY HX 2019 CABG (4) VEIN GRAFTS & ARTERIAL GRAFT(S) 2016 LOWER EXTREMITY APPRAISAL COORDINATOR W/WO STENT Right 2019 right common femoral [...] respiratory distress. Lungs clear to auscultation bilaterally, well- healing left thoracotomy incision no open areas no [...] left upper lobe, pleomorphic carcinoma, stage IIb [id number], stage IIB AJCC 8th edition (chest wall [...] limit potential toxicity from added treatment. Discussed roleof radiation with patient at length. Discussed with Dr. Grigsby. We will plan to have her back for follow-up after his initial chemotherapy. Signed by: Jyoti Limon MD cc: Christina Azul [facility] [place] [address] Nina Grigsby ([facility]) [address] [place] [address] [place] [address] documented in this encounterUniversity Hospitals Portage Medical Center04-04-2022 Miscellaneous Notes* Telephone Encounter - Raine Gallegos RN - 10/22/2021 11:16 AM EDT Returned call to Mr Gu and identified self by name and title. Cristal explained that he had received a call from his [employer] company who questioned thelocation of his upcoming MRI. Cristal was a bit confused after the call and wanted to confirm that our office did not have any concerns regarding completing his MRI at [facility]. I assured Cristal that his insurance has authorized the imaging and it may be completed at any F location. He was scheduled for first available, and voiced comfort with driving to [place]. No additional questions at this time. Raine METZ, RN Specialty Automatic Lathe Operator * Telephone Encounter - Mary Alice Cabezas ADM - 10/19/2021 3:48 PM EDT Cristal Gu is calling Renetta Ponce MD today regarding Care Coordination, calling to discuss going to another hospital for his MRI. Patient has been identified by name and birthdate. Duration of symptoms: N/A Requesting response back: call on cell [phone] (home) [phone] (cell) Mary Alice Cabezas ADM October 19, 2021 documented in this encounterUniversity Hospitals Portage Medical Center04-01-2022 History of Present illness Narrative* Renetta Ponce MD - 10/19/2021 2:40 PM EDT Images from the original note were not included. [facility] NEW PATIENT VISIT Department of Hematology and Medical Oncology PATIENT NAME: Cristal Gu [facility] NO.: [id number] DATE OF SERVICE: 10/19/2021 PCP: Christina Azul MD REFERRING PROVIDER: Marianne Fields MD. DIAGNOSIS: Pleomorphic carcinoma of the DARCIE STAGE: [id number], stage IIB AJCC 8th edition (chest wall [...] Lung cancer HISTORY OF PRESENT ILLNESS: Mr. Cristal Gu is a 66 year old male ex smoker with a 100 pack yearsmoking history and PMHx of HTN, COPD, carotid artery disease, PAD s/p stenting, NSTEMI s/p CABG [id number] and alcohol use who presents to discuss adjuvant therapies after his recently resected pleomorphic carcinoma of the lung. Cristal Gu states that he was in his usual state of health and had a screening lung CT in 04/2020 which revealed a DARCIE lung nodule which was minimally avid on PET CT. He then had a follow up scanin 10/2020 and 01/2021 which showed further growth in the nodule, now measuring 2.7 cm. [facility]. He saw Dr. Fields from thoracic surgery and had a PET CT at [facility] which showed hypermetabolic uptake in the DARCIE mass but no evidence of abnormal uptake in lymph nodes or distant sites. He then underwent a VATS left upper lobectomy and MLND on 09/26/2021, final pathology revealed a 2.2 cn pleomorphic carcinoma invading the parietal pleura/ chest wall invasion, no evidence oflymph node involvement. He is here to discuss further management. Clinically, he has recovered well from surgery. His activity is mostly limited by peripheral arterial disease but states that he has not noticed any significant worsening of dyspnea on exertion sincesurgery. Minimal residual pain at this time. ROS is otherwise negative. He does drink 4-9 beers perday and has done so for many years. [...] (HCC) Peripheral arterial disease (HCC) 2019 R LEAD BUSINESS ANALYST stent PAST SURGICAL HISTORY: PAST SURGICAL HISTORY Procedure Laterality Date BACK SURGERY HX 2019 CABG (4) VEIN GRAFTS & ARTERIAL GRAFT(S) 2016 LOWER EXTREMITY APPRAISAL COORDINATOR W/WO STENT Right 2019 right common femoral [...] lymph nodes DIAGNOSTIC STUDIES: LABS: Recent Labs 10/04/2142010/03/2131010/02/21 0442 10/01/21 0616 WBC 4.76 5.08 4.96 3.79 HB 10.5* 10.1* 10.9* 10.1* MCV 93.3 91.6 92.8 90.8 PLT 355 264 244 204 Recent Labs 10/04/2142010/03/2131010/02/21 0442 10/01/21 0616 09/25/21 1056 07/03/21 0957 [...] negative for tumor IMPRESSION AND PLAN: Mr. Cristal Gu is a 66 year old male ex smoker with a 100 pack year smoking history and PMHx ofHTN, COPD, carotid artery disease, PAD s/p stenting, [...] not have any pre existing neuropathy, renal dysfunctionor hearing loss. He does however drink alcohol on a daily basis, we discussed the importance of alco hol cessation to avoid increased risk of toxicities with chemotherapy. We also discussed the evidence in support of adjuvant immunotherapy for a year since his tumor has a high PD-L1 expression. He will need a MRI brain to rule out intracranial metastatic disease. He wishes to receive therapy closer to home at the [facility] location. I will place a referral for him to see oncology at that site. All questions and concerns have been addressed. Renetta Ponce MD, FACP Associate Staff [facility] October 19, 2021 CC: Marianne Fields MD documented in this encounterUniversity Hospitals Portage Medical Center04-01-2022 Miscellaneous Notes* Telephone Encounter - Virgie Dominguez - 01/14/2022 9:30 AM EDT Patient scheduled to see you on Friday01/22/22 for follow up treatment. Please add lab orders. Thanks, Virgie Dominguez MA documented in this encounterUniversity Hospitals Portage Medical Center04-01-2022 Miscellaneous Notes* Telephone Encounter - Virgie Dominguez - 01/30/2022 12:49 PM EDT Patient coming in on 02/07/22 for follow up labs. Please add lab orders. ThanksVirgie MA documented in this encounterUniversity Hospitals Portage Medical Center04-01-2022 Nurse Note* Denisse Brasher LPN - 10/19/2021 9:56 AM EDT Additional intake questions: Has the patient had fever, nausea, vomiting, diarrhea, constipation, fatigue for > 1 week? No Does the patient have a decreased appetite? No Does patient want to see a Retail Pos Specialist? No (yes to any of above refer patient to schedulers for dietitian appointment) ) Does patient have any new or increased numbness or tingling of extremities? No Is patient interested in fertility information? No Does patient need any prescription refills? No Does patient have an advanced directive in place? No, Patient referred to [facility] Electronically Signed By: Denisse Brasher LPN documented in this encounterUniversity Hospitals Portage Medical Center03-24-2022 History of Present illness Narrative* Aracelis Carrillo APRN.SOLAR PANEL TECHNICIAN - 10/11/2021 3:22 PM EDT Images from the original note were not included. [facility] - OUTPATIENT THORACIC SURGERY CLINIC NOTE PT NAME: [facility] NO: [id number] THORACIC SURGEON: Dr Marianne Fields DATE OF [...] meets criteria for pleomorphic carcinoma. Movat pentachrome stainsconfirm the presence of pleural invasion. Laboratory Developed Test (LDT) Disclaimer: Positive and negative controls stain appropriately. Performance characteristics of immunohistochemical, immunofluorescent and chromogenic in-situ hybridization tests have been determined by [facility] [place] ([facility]) in a manner consistent with CLIA requirements. One or more of these tests have not been cleared or approved by the FDA. [facility] is regulated under CLIA as qualified to [...] tumor Number of Lymph Nodes Examined 12 [place] Site(s) Examined 5: Subaortic / aortopulmonary (AP) / AP window 6: Para-aortic (ascending aorta or phrenic) 9L: Pulmonary ligament 10L: Hilar 11L: Interlobar 12L: Lobar Left: Hilar/peribronchial PATHOLOGIC STAGE CLASSIFICATION (pTNM, AJCC 8th Edition) The suffix m (or a specific number) should only be used in the setting of multifocal ground-glass /lepidic nodules that histologically present as adenocarcinomas with [...] REASON FOR VISIT: First post-operative visit HPI: Cristal Gu is a 66 year old male recent ex smoker 50 pack years (quit 09/14/21) with COPD, CAD (s/p CABG x 4), PAD (s/p stent, on plavix, pletal) who was enrolled in lung cancer screening program,underwent low dose CT chest January 2021 and [...] intact. IMAGING/TESTS: CXR 10/11/21: PENDING INTERVAL HISTORY: Cristal Gu returns for first post op visit. He has been doing well. He has had adequate pain management with the use of Oxycodone which he has only been taking at night. He denies any SOB, fevers, chills. No c/o nausea or vomiting. He has been able to stay from cigarettes. He has beentolerating diet and has been moving his bowels [...] f/u 11/20/21 - oncology consult at the [facility] in [place] Aracelis Carrillo APRN.CNP documented in this encounterUniversity Hospitals Portage Medical Center03-24-2022 History of Present illness Narrative* RT Anabel(R) - 10/11/2021 3:00 PM EDT Radiology Service Progress Note PATIENT NAME: Cristal Gu DATE OF SERVICE: October 11, 2021 TIME: 3:11 PM PATIENT IDENTITY VERIFICATION COMPLETED USING TWO (2) IDENTIFIERS: Name and Date of confirmedby patient verbally. FALL SCREENING: Has the patient [...] 11, 2021 3:11 PM documented in this encounterUniversity Hospitals Portage Medical Center11-08-2021 Procedure note* Vanessa Joaquin RT(R) - 05/28/2021 7:00 AM EST RADIOLOGY SERVICE PROGRESS NOTE SERVICE DATE: 05/28/2021 [...] 0745 PATIENT DISCHARGED TO: Ambulatory patient, left [place] department area. A Diagnostic radioactive procedure has taken place, with no further precautions necessary other than routine body substance precautions. More information regarding radiation safety can be found usingthis link: [email or web address] SIGNATURE: RT Ayaz(Marcella) PATIENT NAME: Cristal Gu DATE: May 28, 2021 TIME: 8:14 AM PAGER/CONTACT #: documented in this encounterUniversity Hospitals Portage Medical CenterDiswilson [address] hospitalr summary Author Jair Nichols [facility] March 20, 2024 2:40pm Note Date/Time March 20, 2024 2: 40pm [facility] [address] [place] [address] Discharge Summary Signed Patient: Crisatl Gu MR#: [id number] : 1955 Acct:[id number] Age/Sex: 69 / M Adm Date: 4 Loc: Room: [address] [place] [address]: Jair Nichols MD Copies to: NON STAFF Jair Nichols MD~ Providers Date of Discharge: 03/20/24 Discharging Provider: Jair Nichols Primary Care Provider: NON STAFF Consults: 03/19/24 22:06 Consult to Neurology Routine Comment: Consulting Provider: Davion Allen Reason For Exam: Unstable gait, Altered Mental status Has Provider Been Notified: Yes Date of Notification: 03/20/24 Time of Notification: 07:23 Consult to Occupational Therapy Routine Comment: Physician Instructions: Consult to OT for:: Evaluation and Treat Consult to Physical Therapy Routine Comment: Physician Instructions: Consult to PT for:: Evaluation and Treat Discharge Diagnosis (1) Unsteady gait: (2) Forgetfulness: (3) History of lung cancer: (4) Generalized weakness: (5) Debility: Final Diagnosis Final Discharge Diagnosis: 1. Forgetfulness 2. Generalized weakness 3. Lung cancer currently on chemotherapeutics 4. Unsteady gait Summary Hospital Course Hospital course: This is a 69-year-old gentleman with history of lung cancer had a brief episode of forgetfulness along with unsteady gait. He has mets to his neck. He talked to his primary care physician who thought patient should get an MRI to rule out any brain mets of lung cancer. At the same time patient has been started on chemotherapeutics which may cause also brief side effect. Initially he did not want to be admitted later on he came back and got himself admitted from emergency department. He was evaluated by our neurology service. He did not have any focal neurological signs. Patient does have a stent in his lower extremity for peripheral artery disease. We did not have a information about the stent whether that is MRI compatible or not. We sent request to [facility]. Being long weekend we did not get any response back from them immediately and patient did not wait through the weekend. He is now somewhat convinced that his forgetfulness and maybe unsteady gait was due to new chemotherapeutics. Patient was evaluated by PT OT and did not have any requirement of generalized weakness. He was given a MRI of the brain or as an outpatient. On the day of discharge patient was at baseline. Vital signs were stable. Physical exam was benign. The details of the hospital stay, hospital course, lab data, imaging studies, and consultants' recommendations can be found in the EHR of [facility]. The patient left hospital appropriately in stable condition. Patient has follow-up appointment with PCP in 7 days from the day of discharge. Condition Condition at Discharge: Stable Status at Discharge Functional status at discharge: independent ambulation Time Spent with Patient Time spent providing/coordinating discharge services (# min): 20 Discharge Plan Discharge Plan Patient Disposition: Home Activity: No Activity Restriction Diet: Regular Instructions: Know your Meds Prescriptions: Continued atorvastatin 40 mg tablet 40 mg PO QHS clopidogrel 75 mg tablet 75 mg PO DAILY Hold Instructions: Resume on 06/18/20. albuterol sulfate 90 mcg/actuation HFA aerosol inhaler 1 puff INHALATION Q4H PRN (Reason: Shortness Of Breath) Patient Comments: INHALE 2 PUFFS BY MOUTH EVERY 4 HOURS NEEDED metoprolol tartrate 25 mg tablet 50 mg PO BID cilostazol 100 mg tablet 100 mg PO BID aspirin [Felice Low Dose Aspirin] 81 mg Tablet,Delayed Release (Dr/Ec) 81 mg PO DAILY fentanyl 50 mcg/hr patch 72 hour 1 patch topical Q72HR oxycodone 10 mg tablet 10 mg PO Q4H PRN (Reason: pain) Lumakras 320 mg tablet 960 mg PO DAILY isosorbide mononitrate 30 mg Tablet Extended Release 24 Hr 30 mg PO DAILY venlafaxine 37.5 mg capsule,extended release 24hr 37.5 mg PO DAILY trazodone 50 mg tablet 50 mg PO HS pregabalin 75 mg capsule 75 mg PO TID dexamethasone 4 mg tablet 4 mg PO BID alprazolam 0.25 mg tablet 1 mg PO TID PRN (Reason: anxiety) Exam Physical Exam Vital Signs: Temp Pulse Resp BP Pulse Ox O2 Del Method O2 Flow Rate 97.6 F 82 16 163/83 H 99 Room Air 2 03/20/24 08:00 03/20/24 08:00 03/20/24 08:00 03/20/24 08:00 03/20/24 08:00 03/20/24 10:00 03/20/24 00:00 Const General: cooperative, no acute distress and well hydrated Orientation: alert, awake and oriented x3 HEENT Head: normocephalic and atraumatic Face and sinus: normal facial exam and sinuses nontender Mouth: oral mucosae normal Eyes Conjunctivae: conjunctivae normal Sclera: sclerae normal Neck Thyroid: thyroid normal Carotids: normal carotid upstroke Lymphatic: no lymphadenopathy noted Resp Effort & Inspection: normal respiratory effort, able to speak in complete sentences and symmetric chest movement Auscultation: clear to auscultation bilaterally Cardio Palpation: normal PMI Rate: regular rate Rhythm: regular rhythm Heart Sounds: S1 normal and S2 normal Pulses: dorsalis pedis present GI Palpation: soft and no hepatosplenomegaly Auscultation: normal bowel sounds Skin General: no rashes or lesions noted and turgor normal Extrem General: full ROM Diagnostic Studies Completed and Pending Studies Pending studies at discharge: 03/21/24 05:00 Complete Blood Count Auto Diff IN AM Comprehensive Metabolic Panel [CHEM] IN AM Magnesium [CHEM] IN AM 03/22/24 05:00 Complete Blood Count Auto Diff IN AM Comprehensive Metabolic Panel [CHEM] IN AM Magnesium [CHEM] IN AM 03/23/24 05:00 Complete Blood Count Auto Diff IN AM Comprehensive Metabolic Panel [CHEM] IN AM Magnesium [CHEM] IN AM MR angio MR brain w/o Routine 03/24/24 05:00 Complete Blood Count Auto Diff IN AM Comprehensive Metabolic Panel [CHEM] IN AM Magnesium [CHEM] IN AM Labs on day of discharge: 03/20/24 07:00: Corrected WBC 5.8, Uncorrected WBC Count 5.8, RBC 3.54 L, Hgb 10.9 L, Hct 33.2 L, MCV 93.6, MCH 30.7, MCHC 32.8, RDW 13.8, Plt Count 236, MPV 9.5, Neut % (Auto) 82.3, Lymph % (Auto) 8.6, [place] % (Auto) 8.7, Eos % (Auto) 0.2, Baso % (Auto) 0.2, Nucleat RBC Rel Count 0.0, Neut # (Auto) 4.8, Lymph # (Auto) 0.5 L, [place] # (Auto) 0.5, Eos # (Auto) 0.0, Baso # (Auto) 0.0, PHA Creatinine Clear 58.50, Sodium 140, Potassium 4.1, Chloride 110 H, Carbon Dioxide 25.0, Anion Gap 9.1, BUN 20, Creatinine 0.87, Est GFR (CKD-EPI) > 60.0, Glucose 101 H, Calcium 8.8, Magnesium 1.8 L, Total Bilirubin 0.6, AST 11 L, ALT 9, Alkaline Phosphatase 46, Total Protein 6.3 L, Albumin 3.3 L, Globulin 3.0, Albumin/Globulin Ratio 1.1 03/19/24 18:32: Troponin I High Sens 18.2 Documented By: Jair Nichols MD 03/20/24 1433 Signed By: <Electronically signed by Jair Nichols MD> 03/20/24 1440 [facility] Work Phone: Evaluation note* Diagnosis Malignant neoplasm of upper lobe of left lung (HCC)- Primary [facility] Diagnosis Follow-up examination following surgery Follow-up examination, following unspecified surgery documented in this encounter [facility] note* Diagnosis Malignant neoplasm of upper lobe of left lung (HCC) [facility] Diagnosis Malignant neoplasm of upper lobe of left lung (HCC)- Primary [facility] Diagnosis Malignant neoplasm of upper lobe of left lung (HCC)- Primary [facility] Diagnosis Malignant neoplasm of upper lobe of left lung (HCC) [facility] Diagnosis Malignant neoplasm of upper lobe of left lung (HCC)- Primary [facility] Diagnosis Malignant neoplasm of upper lobe of left lung (HCC)- Primary [facility] Diagnosis Malignant neoplasm of upper lobe of left lung (HCC)- Primary [facility] Diagnosis Malignant neoplasm of upper lobe of left lung (HCC)- Primary [facility] Diagnosis Acute kidney injury (HCC)- Primary Acute kidney failure, unspecified [facility] Diagnosis Acute kidney injury (HCC)- Primary Acute kidney failure, unspecified Malignant neoplasm of upper lobe of left lung (HCC) [facility] Diagnosis Malignant neoplasm of upper lobe of left lung (HCC)- Primary Acute kidney injury (HCC) Acute kidney failure, unspecified [facility] Diagnosis Malignant neoplasm of upper lobe of left lung (HCC)- Primary Acute kidney injury (HCC) Acute kidney failure, unspecified [facility] Diagnosis Malignant neoplasm of upper lobe of left lung (HCC)- Primary Acute kidney injury (HCC) Acute kidney failure, unspecified [facility] Diagnosis Malignant neoplasm of upper lobe of left lung (HCC)- Primary Acute kidney injury (HCC) Acute kidney failure, unspecified [facility] Diagnosis Malignant neoplasm of upper lobe of left lung (HCC)- Primary Acute kidney injury (HCC) Acute kidney failure, unspecified [facility] Diagnosis Malignant neoplasm of upper lobe of left lung (HCC)- Primary [facility] Diagnosis Malignant neoplasm of upper lobe [...] induced anemia [facility] Diagnosis Malignant neoplasm of upper lobe of left lung (HCC)- Primary [facility] Diagnosis Malignant neoplasm of upper lobe of left lung (HCC)- Primary 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 Skin infection Unspecified local infection of skin and subcutaneous tissue [facility] Diagnosis Malignant neoplasm of upper lobe of left lung (HCC)- Primary 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 [facility] Diagnosis Chronic obstructive pulmonary disease, unspecified COPD type (HCC) Lung nodule Solitary pulmonary nodule [facility] Diagnosis Chronic obstructive pulmonary disease, unspecified COPD type (HCC) Lung nodule Solitary pulmonary nodule [facility] Diagnosis Chronic obstructive pulmonary disease, unspecified COPD type (HCC) Malignant neoplasm of upper lobe of left lung (HCC) PAD (peripheral artery disease) (HCC) Peripheral vascular disease, unspecified [facility] Diagnosis Malignant neoplasm of upper lobe of left lung (HCC) [facility] Diagnosis Malignant neoplasm of upper lobe of left lung (HCC)- Primary [facility] Diagnosis Malignant neoplasm of upper lobe of left lung (HCC)- Primary 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 Acute kidney injury (HCC) Acute kidney failure, unspecified Skin infection Unspecified local infection of skin and subcutaneous tissue [facility] Diagnosis Malignant neoplasm of upper lobe of left lung (HCC)- Primary 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 Acute kidney injury (HCC) Acute kidney failure, unspecified Skin infection Unspecified local infection of skin and subcutaneous tissue [facility] Diagnosis Chronic obstructive pulmonary disease, unspecified COPD type (HCC)- [facility] Skin rash- Primary Rash and [...] Primary [facility] assessment information available[facility]* Diagnosis Malignant neoplasm [...] (acute) (chronic) [facility] Diagnosis Primary malignant neoplasm of left [...] lung (HCC)- Primary [facility] Diagnosis Malignant neoplasm of upper [...] Anxiety state, unspecified [facility] nonspecific skin eruption [facility]* Diagnosis Primary malignant neoplasm of left [...] nonspecific skin eruption [facility] Diagnosis 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) documented [facility] Diagnosis 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 Cancer related pain Neoplasm related pain (acute) (chronic) [facility]* Diagnosis Palliative care by specialist- Primary 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 Nausea Nausea alone Anorexia Protein-calorie malnutrition, unspecified severity (HCC) Anxiety Anxiety state, unspecified 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 due to medical condition classified elsewhere [facility]* Diagnosis Malignant neoplasm of upper lobe of left lung (HCC)- Primary [facility]* Diagnosis Malignant neoplasm of upper lobe of left lung (HCC) [facility]* Diagnosis Oropharyngeal cancer (HCC)- Primary Malignant neoplasm of oropharynx, unspecified site Tonsillar mass Swelling, mass, or lump in head and neck Malignant neoplasm of upper lobe of left lung (HCC) [facility]* Diagnosis Oropharnyx cancer (HCC)- Primary [facility] Diagnosis Malignant neoplasm of upper lobe of left lung (HCC)- Primary Centrilobular emphysema (HCC) Other emphysema CAD in [place] artery Coronary atherosclerosis of [place] coronary artery PVD (peripheral vascular disease) (HCC) Peripheral vascular disease, unspecified Cancer related pain Neoplasm related pain (acute) (chronic) Tonsillar mass Swelling, mass, or lump in head and neck Abnormal LFTs Other abnormal blood chemistry Anxiety Anxiety state, unspecified Hypothyroidism due to medication [facility] Diagnosis Oropharnyx cancer (HCC)- Primary documented [...] Nausea Nausea alone [facility] Diagnosis 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 Tonsillar mass Swelling, mass, or lump in head and neck Primary hypertension Unspecified essential hypertension Centrilobular emphysema (HCC) Other emphysema Coronary artery disease involving [place] coronary artery of [place] heart without angina pectoris Hypothyroidism due to medication Cancer related pain Neoplasm related pain (acute) (chronic) [facility] Diagnosis Primary malignant neoplasm of left [...] condition classified elsewhere [facility] [...] Anxiety state, unspecified [facility]* Diagnosis Neuropathy due to chemotherapeutic drug [...] specified administrative purpose [facility] Diagnosis 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 [facility] Diagnosis 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 Swelling of arm Swelling of limb 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) [facility] Diagnosis 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 Chronic obstructive pulmonary disease, unspecified COPD type (HCC) Shortness of breath [facility] Diagnosis Chronic obstructive pulmonary disease, unspecified COPD type (HCC)- Primary Centrilobular emphysema (HCC) Other emphysema 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) [facility]* Diagnosis 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) [facility]* Diagnosis Left arm swelling- Primary Swelling of limb Cyanosis of tip of finger Cyanosis [facility] Diagnosis 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) [facility]* Diagnosis Malignant neoplasm of upper lobe of left lung (HCC)- Primary [facility]* Diagnosis 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) [facility]* Diagnosis Abnormal CT scan, neck- Primary Other nonspecific (abnormal) findings on radiological and other examinations of body structure Sore throat Acute pharyngitis [facility]* Diagnosis Centrilobular emphysema (HCC)- Primary Other emphysema Malignant neoplasm of upper lobe of left lung (HCC) Coronary artery disease involving [place] coronary artery of [place] heart without angina pectoris PAD (peripheral artery disease) (HCC) Peripheral vascular disease, unspecified Dyspnea on exertion Other dyspnea and respiratory abnormality documented [facility]* Diagnosis Encounter for palliative care- Primary 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) Chronic left shoulder pain Pain in joint, shoulder region Malignant neoplasm of upper lobe of left lung (HCC) Nausea Nausea alone Weight loss, unintentional Loss of weight Protein-calorie malnutrition, unspecified severity (HCC) Anxiety Anxiety state, unspecified documented [facility]* Diagnosis 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) 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 Chronic obstructive pulmonary disease, unspecified COPD type (HCC) Altered mental status, unspecified altered mental status type documented in this [facility]* Diagnosis Onset Date Resolution Status Chronic left shoulder pain a cute COPD (chronic obstructive pulmonary disease) acute Debility acute Forgetfulness acute Generalized weakness acute History of lung cancer acute Mass of left lung acute Unsteady gait acute [facility] Work Phone: Evaluation note* Diagnosis 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 Grigsby's office call tomorrow let them know that you were seen in the emergency department Please return here if you develop any chest pain, shortness of breath, numbness, tingling or any other concerns[facility] Work Phone: [facility] Discharge instructions Additional Instructions If your symptoms return/worsen or you develop any further concerns or symptoms please see your doctor or return to the emergency department immediately. As we discussed admission for further management is recommended but you will follow-up with your oncologist and your PCP. You may return to the emergency department should you change her mind.[facility] Work Phone: Hospital Discharge instructions Additional Instructions Call [facility] Central Scheduling on Friday at [phone] to schedule outpatient Brain MRI. The MRI may require prior authorization through your insurance before it can be scheduled, central scheduling will assist with this if it is needed.[facility] Work Phone: [facility] Diagnostic Procedure Only (Routine) - Pending Review Specialty Diagnoses / Procedures Referred By Contac t Referred To Contact MOLECULAR & FUNCTIONAL IMAGING Diagnoses Malignant neoplasm of unspecified part of unspecified bronchus or lung (HCC) Procedures NM BONE WHOLE BODY BONE &/JOINT IMAGING WHOLE BODY Jyoti Limon MD [address] [place] [address] [place] [address] [facility] [address] [place] [address] Referral ID Status Reason Start Date Expiration Date Visits Requested Visits Authorized [id number] Pending Review Auto-Generat ed Referral 04/08/2022 05/08/2023 1 1 [facility] for referral (narrative)* Diagnostic Procedure Only (Routine) - Authorized Specialty Diagnoses / Procedures Referred By Contac t Referred To Contact MOLECULAR & FUNCTIONAL IMAGING Diagnoses Lung nodules Procedures NM PET/CT SKULL-THIGH SUBSEQUENT PET IMAGING CT ATTENUATION SKULL BASE MID-THIGH Nina Grigsby MD [address] [place] [address] [place] [address] Molecular [facility] Functional Imaging [address] [place] [address] Referral ID Status Reason Start Date Expiration Date Visits Requested Visits Authorized [id number] Authorized Auto-Generat ed Referral 09/23/2022 10/23/2023 1 1 [facility] for referral (narrative)* Diagnostic Procedure Only (Urgent) - Closed Specialty Diagnoses / Procedures Referred By Contac t Referred To Contact MOLECULAR & FUNCTIONAL IMAGING Diagnoses Malignant neoplasm of unspecified part of unspecified bronchus or lung (HCC) Procedures NM PET/CT WHOLE BODY INITIAL TUMOR IMAG PET W/CONCURNT CT-WHOLE BODY Marianne Fields MD [address] [facility] [address] [place] [address] Molecular [facility] Functional Imaging [address] [place] [address] Referral ID Status Reason Start Date Expiration Date V isits Requested Visits Authorized [id number] Closed Clearance Not Met - Admin/Chairm an/Director Advise to Postpone/Res chedule or Not Proceed 05/14/2021 06/13/2021 2 2 [facility] for referral (narrative)* Diagnostic Procedure Only (Routine) - Authorized Specialty Diagnoses / Procedures [facility] To Contact [facility] FUNCTIONAL IMAGING Diagnoses 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) Procedures NM PET/CT SKULL-THIGH SUBSEQUENT PET IMAGING CT ATTENUATION SKULL BASE MID-THIGH Nina Grigsby MD [address] [place] [address] [place] [address] Molecular & Functional Imaging [address] [place] [address] Referral ID Status Reason Start Date Expiration Date Visits Requested Visits Authorized [id number] Authorized Auto-Generat ed Referral 08/25/2023 09/23/2024 1 1 [facility] for referral (narrative)* Diagnostic Procedure Only (Routine) - Authorized Specialty Diagnoses / Procedures Referred By Contac Referred To Contact MOLECULAR & FUNCTIONAL IMAGING Diagnoses 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) Procedures NM PET/CT SKULL-THIGH SUBSEQUENT PET IMAGING CT ATTENUATION SKULL BASE MID-THIGH Nina Grigsby MD [address] [place] [address] [place] [address] Molecular [facility] Functional [facility] [address] [place] [address] Referral ID Status Reason Start Date Expiration Date Visits Requested Visits Authorized [id number] Authorized Auto-Generat ed Referral 11/04/2023 12/03/2024 1 1 [facility] for referral (narrative)* Diagnostic Procedure Only (Routine) - Authorized Specialty Diagnoses / Procedures [facility] Ref[facility] To Contact MOLECULAR & FUNCTIONAL IMAGING Diagnoses 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 Swelling of arm Cancer associated pain Procedures NM PET/CT SKULL-THIGH SUBSEQUENT PET IMAGING CT ATTENUATION SKULL BASE MID-THIGH Yusef Pandya PA-C [address] [place] [address] [place] [address] Molecular [facility] Functional Imaging [address] [place] [id number] Referral ID Status Reason Start Date Expiration Date Visits Requested Visits Authorized [id number] Authorized Auto-Generat ed Referral 02/03/2024 03/04/2025 1 1 * Diagnostic Procedure Only (Urgent) - New Request Specialty Diagnoses / Procedures Referred By Contac t Referred To Contact [facility] Diagnoses 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) Swelling of arm Procedures US DVT UPPER LEFT DUP-SCAN XTR VEINS UNILATERAL/LIMITED STUDY Yusef Pandya PA-C [address] [place] [address] [place] [address] [place] [address] Referral ID Status Reason Start Date Expiration Date Visits Requested Visits Authorized [id number] New Request Auto-Generat ed Referral 02/03/2024 03/04/2025 1 1 [facility] for referral (narrative)* Outpatient Procedure (Routine) - Authorized Specialty Diagnoses / Procedures [facility] Diagnoses Centrilobular emphysema (HCC) Dyspnea on exertion Procedures LUNG DIFFUSION CAPACITY (DLCO) [place] [address] [place] [address] [facility] [address] [place] [address] Referral ID Status Reason Start Date Expiration Date Visits Requested Visits Authorized [id number] Authorized Auto-Generat ed Referral 03/15/2024 04/14/2025 1 1 * Outpatient Procedure (Routine) - Authorized Specialty Diagnoses / Procedures Referred By Contac t Referred To [facility] Diagnoses Centrilobular emphysema (HCC) Dyspnea on exertion Procedures SPIROMETRY WITH DILATOR IF OBSTRUCTED BRNCDILAT RSPSE SPMTRY PRE&[place] [address] [place] [address] [facility] [address] [place] [address] Referral ID Status Reason Start Date Expiration Date Visits Requested Visits Authorized [id number] Authorized Auto-Generat ed Referral 03/15/2024 04/14/2025 1 1 [facility] for referral (narrative)* Diagnostic Procedure Only (Routine) - Closed Specialty Diagnoses / Procedures Referred By Contac t Referred To Contact MOLECULAR & FUNCTIONAL IMAGING Diagnoses 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 Swelling of arm Cancer associated pain Procedures NM PET/CT SKULL-THIGH SUBSEQUENT PET IMAGING CT ATTENUATION SKULL BASE MID-THIGH Yusef Pandya PA-C [address] [place] [address] [place] [address] Molecular [facility] [address] [place] [address] Referral ID Status Reason Start Date Expiration Date V isits Requested Visits Authorized [id number] Closed Auto-Generate d Referral 02/03/2024 03/04/2025 1 1 [facility] for visit Narrative* Diagnostic Procedure Only (Urgent) - Closed Specialty Diagnoses / Procedures Referred By Contac t Referred To Contact MOLECULAR & FUNCTIONAL IMAGING Diagnoses Malignant neoplasm of unspecified part of unspecified bronchus or lung (HCC) Procedures NM PET/CT WHOLE BODY INITIAL TUMOR IMAG PET W/CONCURNT CT-WHOLE BODY Marianne Fields MD [address] [facility] [address] [place] [address] Molecular & Functional Imaging [address] [place] [address] Referral ID Status Reason Start Date Expiration Date V isits Requested Visits Authorized [id number] Closed Clearance Not Met - Admin/Chairm an/Director Advise to Postpone/Res chedule or Not Proceed 05/14/2021 06/13/2021 2 2 [facility] Summary Purpose Family History Relationship Condition Age at Onset Recorded Date/T jackeline father Heart problem Unknown Malignant neoplasm of lung Unknown Advance Directives Documents on File Type Date Recorded Patient Upper Doubler Expl anation Advance Directive(s) 09/03/2021 12:55 PM Advance Directive(s) 07/10/2021 11:36 AM Documents on File Type Date Recorded Patient Upper Doubler Expl anation Advance Directive(s) 09/03/2021 12:55 PM Advance Directive(s) 07/10/2021 11:36 AM Advance Directive Response Recorded Date/ Time Advance Directives No May 11:17am Reason for Referral Specialty Diagnoses / Procedures Referred By Contac t Referred To Contact Oncology Diagnoses Malignant neoplasm of upper lobe of left lung (HCC) Procedures CONSULT TO ONCOLOGY OFFICE/OUTPATIENT [facility] 60-74 MINUTES Aracelis Carrillo APRN.CNP [address] [place] [address] Referral ID Status Reason Start Date Expiration Date Visits Requested Visits Authorized [id number] Authorized PCP Requested Referral 10/11/2021 10/11/2022 1 1 Specialty Diagnoses / Procedures Referred By Contac t Referred To Contact Oncology Diagnoses Malignant neoplasm of upper lobe of left lung (HCC) Procedures CONSULT TO ONCOLOGY OFFICE/OUTPATIENT [facility] 60-74 MINUTES Renetta Ponce MD [address] [id number] Referral ID Status Reason Start Date Expiration Date V isits Requested Visits Authorized [id number] Closed PCP Requested Referral 10/26/2021 10/19/2022 1 1 Specialty Diagnoses / Procedures Referred By Contac t Referred To Contact MR IMAGING Diagnoses Malignant neoplasm of upper lobe of left lung (HCC) Procedures MRI BRAIN WO/W IVCON MRI BRAIN BRAIN STEM W/O W/CONTRAST MATERIAL Renetta Ponce MD [address] [place] [address] Mr Imaging Referral ID Status Reason Start Date Expiration Date Visits Requested Visits Authorized [id number] Authorized Auto-Generat ed Referral 10/26/2021 11/18/2021 1 1 Specialty Diagnoses / Procedures Referred By Contac t Referred To Contact Dermatology Diagnoses Skin rash Procedures CONSULT TO DERMATOLOGY OFFICE/OUTPATIENT [facility] 60-74 MINUTES Patricia Miller, PLANOGRAPH OPERATOR.[address] [place] [address] Referral ID Status Reason Start Date Expiration Date Visits Requested Visits Authorized [id number] Authorized PCP Requested Referral 02/26/2022 02/26/2023 1 1 Specialty Diagnoses / Procedures Referred By Contac t Referred To Contact CT IMAGING Diagnoses Malignant neoplasm of unspecified part of unspecified bronchus or lung (HCC) Procedures CT CHEST W IVCON DIAGNOSTIC COMPUTED TOMOGRAPHY THORAX W/CONTRAST Jyoti Limon MD [address] [place] [address] [place] [address] Ct Imaging Referral ID Status Reason Start Date Expiration Date V isits Requested Visits Authorized [id number] Closed Auto-Generate d Referral 06/11/2022 07/11/2023 1 1 Specialty Diagnoses / Procedures Referred By Contac t Referred To Contact CT IMAGING Diagnoses Malignant neoplasm of unspecified part of unspecified bronchus or lung (HCC) Procedures CT CHEST W IVCON DIAGNOSTIC COMPUTED TOMOGRAPHY THORAX W/CONTRAST Nina Grigsby MD [address] [facility] [place] [address] Ct Imaging Referral ID Status Reason Start Date Expiration Date Visits Requested Visits Authorized [id number] Pending Review Auto-Generat ed Referral 08/20/2022 09/19/2023 1 1 Specialty Diagnoses / Procedures Referred By Contac t Referred To Contact CT IMAGING Diagnoses Malignant neoplasm of upper lobe of left lung (HCC) Procedures CT ABD/PEL W IVCON CT ABD & PELVIS W/CONTRAST Nina Grigsby MD [address] [facility] [place] [address] Ct Imaging Referral ID Status Reason Start Date Expiration Date Visits Requested Visits Authorized [id number] Pending Review Auto-Generat ed Referral 08/20/2022 09/19/2023 1 1 Specialty Diagnoses / Procedures Referred By Contac t Referred To Contact Diagnoses Malignant neoplasm of unspecified part of unspecified bronchus or lung (HCC) Procedures CT SIM PLANNING RADIATION ONCOLOGY THER RAD SIMULAJ-AIDED FIELD SETTING COMPLEX Jyoti Limon MD [address] 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 [place] [address] Referral ID Status Reason Start Date Expiration Date Visits Requested Visits Authorized [id number] Authorized PCP Requested Referral 3 05/14/2024 1 1 Specialty Diagnoses / Procedures Referred By Contac t Referred To Contact MR IMAGING Diagnoses Malignant neoplasm of upper lobe of left lung (HCC) Procedures MRI BRAIN WO/W IVCON MRI BRAIN BRAIN STEM W/O W/CONTRAST MATERIAL Renetta Ponce MD [address] [place] [address] [place] [address] Referral ID Status Reason Start Date Expiration Date V isits Requested Visits Authorized [id number] Closed Auto-Generate d Referral 10/26/2021 11/18/2021 1 1 Specialty Diagnoses / Procedures Referred By Contac t Referred To Contact Diagnoses Oropharnyx cancer (HCC) Procedures CT SIM PLANNING RADIATION ONCOLOGY THER RAD SIMULAJ-AIDED FIELD SETTING COMPLEX Jyoti Limon MD [address] [place] [address] [place] [address] Referral ID Status Reason Start Date Expiration Date Visits Requested Visits Authorized [id number] Pending Review PCP Requested Referral 09/08/2023 1 1 Specialty Diagnoses / Procedures Referred By Contac t Referred To Contact CT IMAGING Diagnoses 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) Procedures CT CHEST W IVCON DIAGNOSTIC COMPUTED TOMOGRAPHY THORAX W/CONTRAST Nina Grigsby MD [address] [place] [address] [place] [address] [place] [address] Referral ID Status Reason Start Date Expiration Date V isits Requested Visits Authorized [id number] Closed Auto-Generate d Referral 10/20/2023 11/18/2024 1 1 Specialty Diagnoses / Procedures Referred By Contac t Referred To Contact [facility] Diagnoses Chronic left shoulder pain Procedures CONSULT TO PHYSICAL THERAPY PHYSICAL THERAPY EVALUATION HIGH COMPLEX 45 MINS Estella Fish, PLANOGRAPH OPERATOR.SOLAR PANEL TECHNICIAN [address] [place] [address] [facility] [place] [address] [place] [address] Referral ID Status Reason Start Date Expiration Date Visits Requested Visits Authorized [id number] Pending Review Auto-Generat ed Referral 11/21/2023 11/20/2024 1 1 Specialty Diagnoses / Procedures Referred By Contac t Referred To Contact RADIATION ONCOLOGY Diagnoses Malignant neoplasm of upper lobe of left lung (HCC) 15 FX plus sim IMRT Procedures CT SIM PLANNING RADIATION ONCOLOGY THER RAD SIMULAJ-AIDED FIELD SETTING COMPLEX INTENSITY MODULATED RADIATION TX DLVR COMPLEX 15 FX plus sim IMRT Jyoti Limon MD [address] [facility] [place] [address] [address] Mendez [address] [place] [address] Referral ID Status Reason Start Date Expiration Date Visits Requested Visits Authorized [id number] Authorized PCP Requested Referral 12/03/2023 06/03/2024 16 16 Specialty Diagnoses / Procedures Referred By Contac t Referred To Contact Vascular Surgery Diagnoses Left arm swelling Cyanosis of tip of finger Procedures CONSULT TO VASCULAR SURGERY OFFICE/OUTPATIENT [facility] 60 MINUTES Yusef Pandya PA-C [address] [place] [address] [place] [address] Referral ID Status Reason Start Date Expiration Date Visits Requested Visits Authorized [id number] Authorized PCP Requested Referral 02/04/2024 02/03/2025 1 1 Specialty Diagnoses / Procedures Referred By Contac t Referred To Contact Ent - Otolaryngology Diagnoses Abnormal CT scan, neck Sore throat Procedures CONSULT TO ENT OFFICE/OUTPATIENT [facility] 60 MINUTES Yusef Pandya PA-C [address] [address] Referral ID Status Reason Start Date Expiration Date Visits Requested Visits Authorized [id number] Authorized PCP Requested Referral 02/24/2024 02/23/2025 1 1 Medications Administered Section Inactive Administered Medications - [...] Complaint Coughing up Blood Chief Complaint SOB Chief Complaint SOB back/neck pain Chief Complaint SOB back/neck pain sent by dr rodriguez cancer Chief Complaint SOB back/neck pain sent by dr rodriguez cancer Needs more testing Reason for Visit Chronic left shoulde r pain COPD (chronic obstructive pulmonary disease) Debility Forgetfulness Generalized weakness History of lung cancer Mass of left lung Unsteady gait Additional Source Comments (unrecognized sect ion and content) No Status Records FoundNo Status Records FoundNo Status Records FoundNo Status Records FoundNo Status Records FoundNo Status Records FoundNo Status Records Found INFORMATION SOURCE (unrecogn ized section and content) DATE CREATED AUTHOR 02/22/2020 [facility] DATE CREATED AUTHOR AUTHOR'S ORGANIZ ATION 10/14/2022 [facility] DATE CREATED AUTHOR AUTHOR'S ORGANIZ ATION 10/25/2022 [facility] DATE CREATED AUTHOR AUTHOR'S ORGANIZ ATION 01/18/2023 [facility] DATE CREATED AUTHOR AUTHOR'S ORGANIZ ATION 03/18/2024 Pranav Berkowitz [facility] DATE CREATED AUTHOR AUTHOR'S ORGANIZ ATION 03/19/2024 [facility] DATE CREATED AUTHOR AUTHOR'S ORGANIZ ATION 03/23/2024 [facility] Source Comments (unrecognize d section and content) In the event this informatio n is protected by the Federal Confidentiality of Alcohol and Drug Abuse Patient Records regulations: The Federal rules restrict any use of the information to criminally investigate or prosecute any alcohol or drug abuse patient.[facility] the event this information is protected by the Federal Confidentiality of Alcohol and Drug Abuse Patient Records regulations: The Federal rules restrict any use of the information to criminally investigate or prosecute any alcohol or drug abuse patient.[facility] the event this information is protected by the Federal Confidentiality of Alcohol and Drug Abuse Patient Records regulations: The Federal rules restrict any use of the information to criminally investigate or prosecute any alcohol or drug abuse patient.[facility] Center[facility] the event this information is protected by the Federal Confidentiality of Alcohol and Drug Abuse Patient Records regulations: The Federal rules restrict any use of the information to criminally investigate or prosecute any alcohol or drug abuse patient.[facility] CenterIn the event this information is protected by the Federal Confidentiality of Alcohol and Drug Abuse Patient Records regulations: The Federal rules restrict any use of the information to criminally investigate or prosecute any alcohol or drug abuse patient.[facility] CenterIn the event this information is protected by the Federal Confidentiality of Alcohol and Drug Abuse Patient Records regulations: The Federal rules restrict any use of the information to criminally investigate or prosecute any alcohol or drug abuse patient.[facility] CenterIn the event this information is protected by the Federal Confidentiality of Alcohol and Drug Abuse Patient Records regulations: The Federal rules restrict any use of the information to criminally investigate or prosecute any alcohol or drug abuse patient.[facility] CenterIn the event this information is protected by the Federal Confidentiality of Alcohol and Drug Abuse Patient Records regulations: The Federal rules restrict any use of the information to criminally investigate or prosecute any alcohol or drug abuse patient.[facility] CenterIn the event this information is protected by the Federal Confidentiality of Alcohol and Drug Abuse Patient Records regulations: The Federal rules restrict any use of the information to criminally investigate or prosecute any alcohol or drug abuse patient.[facility] CenterIn the event this information is protected by the Federal Confidentiality of Alcohol and Drug Abuse Patient Records regulations: The Federal rules restrict any use of the information to criminally investigate or prosecute any alcohol or drug abuse patient.[facility] CenterIn the event this information is protected by the Federal Confidentiality of Alcohol and Drug Abuse Patient Records regulations: The Federal rules restrict any use of the information to criminally investigate or prosecute any alcohol or drug abuse patient.[facility] CenterIn the event this information is protected by the Federal Confidentiality of Alcohol and Drug Abuse Patient Records regulations: The Federal rules restrict any use of the information to criminally investigate or prosecute any alcohol or drug abuse patient.[facility] CenterIn the event this information is protected by the Federal Confidentiality of Alcohol and Drug Abuse Patient Records regulations: The Federal rules restrict any use of the information to criminally investigate or prosecute any alcohol or drug abuse patient.[facility] CenterIn the event this information is protected by the Federal Confidentiality of Alcohol and Drug Abuse Patient Records regulations: The Federal rules restrict any use of the information to criminally investigate or prosecute any alcohol or drug abuse patient.[facility] CenterIn the event this information is protected by the Federal Confidentiality of Alcohol and Drug Abuse Patient Records regulations: The Federal rules restrict any use of the information to criminally investigate or prosecute any alcohol or drug abuse patient.[facility] CenterIn the event this information is protected by the Federal Confidentiality of Alcohol and Drug Abuse Patient Records regulations: The Federal rules restrict any use of the information to criminally investigate or prosecute any alcohol or drug abuse patient.[facility] CenterIn the event this information is protected by the Federal Confidentiality of Alcohol and Drug Abuse Patient Records regulations: The Federal rules restrict any use of the information to criminally investigate or prosecute any alcohol or drug abuse patient.[facility] CenterIn the event this information is protected by the Federal Confidentiality of Alcohol and Drug Abuse Patient Records regulations: The Federal rules restrict any use of the information to criminally investigate or prosecute any alcohol or drug abuse patient.[facility] CenterIn the event this information is protected by the Federal Confidentiality of Alcohol and Drug Abuse Patient Records regulations: The Federal rules restrict any use of the information to criminally investigate or prosecute any alcohol or drug abuse patient.[facility] CenterIn the event this information is protected by the Federal Confidentiality of Alcohol and Drug Abuse Patient Records regulations: The Federal rules restrict any use of the information to criminally investigate or prosecute any alcohol or drug abuse patient.[facility] CenterIn the event this information is protected by the Federal Confidentiality of Alcohol and Drug Abuse Patient Records regulations: The Federal rules restrict any use of the information to criminally investigate or prosecute any alcohol or drug abuse patient.[facility] CenterIn the event this information is protected by the Federal Confidentiality of Alcohol and Drug Abuse Patient Records regulations: The Federal rules restrict any use of the information to criminally investigate or prosecute any alcohol or drug abuse patient.[facility] CenterIn the event this information is protected by the Federal Confidentiality of Alcohol and Drug Abuse Patient Records regulations: The Federal rules restrict any use of the information to criminally investigate or prosecute any alcohol or drug abuse patient.[facility] CenterIn the event this information is protected by the Federal Confidentiality of Alcohol and Drug Abuse Patient Records regulations: The Federal rules restrict any use of the information to criminally investigate or prosecute any alcohol or drug abuse patient.[facility] CenterIn the event this information is protected by the Federal Confidentiality of Alcohol and Drug Abuse Patient Records regulations: The Federal rules restrict any use of the information to criminally investigate or prosecute any alcohol or drug abuse patient.[facility] CenterIn the event this information is protected by the Federal Confidentiality of Alcohol and Drug Abuse Patient Records regulations: The Federal rules restrict any use of the information to criminally investigate or prosecute any alcohol or drug abuse patient.[facility] CenterIn the event this information is protected by the Federal Confidentiality of Alcohol and Drug Abuse Patient Records regulations: The Federal rules restrict any use of the information to criminally investigate or prosecute any alcohol or drug abuse patient.[facility] CenterIn the event this information is protected by the Federal Confidentiality of Alcohol and Drug Abuse Patient Records regulations: The Federal rules restrict any use of the information to criminally investigate or prosecute any alcohol or drug abuse patient.[facility] CenterIn the event this information is protected by the Federal Confidentiality of Alcohol and Drug Abuse Patient Records regulations: The Federal rules restrict any use of the information to criminally investigate or prosecute any alcohol or drug abuse patient.[facility] CenterIn the event this information is protected by the Federal Confidentiality of Alcohol and Drug Abuse Patient Records regulations: The Federal rules restrict any use of the information to criminally investigate or prosecute any alcohol or drug abuse patient.[facility] CenterIn the event this information is protected by the Federal Confidentiality of Alcohol and Drug Abuse Patient Records regulations: The Federal rules restrict any use of the information to criminally investigate or prosecute any alcohol or drug abuse patient.[facility] CenterIn the event this information is protected by the Federal Confidentiality of Alcohol and Drug Abuse Patient Records regulations: The Federal rules restrict any use of the information to criminally investigate or prosecute any alcohol or drug abuse patient.[facility] CenterIn the event this information is protected by the Federal Confidentiality of Alcohol and Drug Abuse Patient Records regulations: The Federal rules restrict any use of the information to criminally investigate or prosecute any alcohol or drug abuse patient.[facility] CenterIn the event this information is protected by the Federal Confidentiality of Alcohol and Drug Abuse Patient Records regulations: The Federal rules restrict any use of the information to criminally investigate or prosecute any alcohol or drug abuse patient.[facility] CenterIn the event this information is protected by the Federal Confidentiality of Alcohol and Drug Abuse Patient Records regulations: The Federal rules restrict any use of the information to criminally investigate or prosecute any alcohol or drug abuse patient.[facility] CenterIn the event this information is protected by the Federal Confidentiality of Alcohol and Drug Abuse Patient Records regulations: The Federal rules restrict any use of the information to criminally investigate or prosecute any alcohol or drug abuse patient.[facility] CenterIn the event this information is protected by the Federal Confidentiality of Alcohol and Drug Abuse Patient Records regulations: The Federal rules restrict any use of the information to criminally investigate or prosecute any alcohol or drug abuse patient.[facility] CenterIn the event this information is protected by the Federal Confidentiality of Alcohol and Drug Abuse Patient Records regulations: The Federal rules restrict any use of the information to criminally investigate or prosecute any alcohol or drug abuse patient.[facility] CenterIn the event this information is protected by the Federal Confidentiality of Alcohol and Drug Abuse Patient Records regulations: The Federal rules restrict any use of the information to criminally investigate or prosecute any alcohol or drug abuse patient.[facility] CenterIn the event this information is protected by the Federal Confidentiality of Alcohol and Drug Abuse Patient Records regulations: The Federal rules restrict any use of the information to criminally investigate or prosecute any alcohol or drug abuse patient.[facility] CenterIn the event this information is protected by the Federal Confidentiality of Alcohol and Drug Abuse Patient Records regulations: The Federal rules restrict any use of the information to criminally investigate or prosecute any alcohol or drug abuse patient.[facility] CenterIn the event this information is protected by the Federal Confidentiality of Alcohol and Drug Abuse Patient Records regulations: The Federal rules restrict any use of the information to criminally investigate or prosecute any alcohol or drug abuse patient.[facility] CenterIn the event this information is protected by the Federal Confidentiality of Alcohol and Drug Abuse Patient Records regulations: The Federal rules restrict any use of the information to criminally investigate or prosecute any alcohol or drug abuse patient.[facility] CenterIn the event this information is protected by the Federal Confidentiality of Alcohol and Drug Abuse Patient Records regulations: The Federal rules restrict any use of the information to criminally investigate or prosecute any alcohol or drug abuse patient.[facility] CenterIn the event this information is protected by the Federal Confidentiality of Alcohol and Drug Abuse Patient Records regulations: The Federal rules restrict any use of the information to criminally investigate or prosecute any alcohol or drug abuse patient.[facility] CenterIn the event this information is protected by the Federal Confidentiality of Alcohol and Drug Abuse Patient Records regulations: The Federal rules restrict any use of the information to criminally investigate or prosecute any alcohol or drug abuse patient.[facility] the event this information is protected by the Federal Confidentiality of Alcohol and Drug Abuse Patient Records regulations: The Federal rules restrict any use of the information to criminally investigate or prosecute any alcohol or drug abuse patient.[facility]In the event this information is protected by the Federal Confidentiality of Alcohol and Drug Abuse Patient Records regulations: The Federal rules restrict any use of the information to criminally investigate or prosecute any alcohol or drug abuse patient.[facility] CenterIn the event this information is protected by the Federal Confidentiality of Alcohol and Drug Abuse Patient Records regulations: The Federal rules restrict any use of the information to criminally investigate or prosecute any alcohol or drug abuse patient.[facility]In the event this information is protected by the Federal Confidentiality of Alcohol and Drug Abuse Patient Records regulations: The Federal rules restrict any use of the information to criminally investigate or prosecute any alcohol or drug abuse patient.[facility] CenterIn the event this information is protected by the Federal Confidentiality of Alcohol and Drug Abuse Patient Records regulations: The Federal rules restrict any use of the information to criminally investigate or prosecute any alcohol or drug abuse patient.[facility] CenterIn the event this information is protected by the Federal Confidentiality of Alcohol and Drug Abuse Patient Records regulations: The Federal rules restrict any use of the information to criminally investigate or prosecute any alcohol or drug abuse patient.[facility] CenterIn the event this information is protected by the Federal Confidentiality of Alcohol and Drug Abuse Patient Records regulations: The Federal rules restrict any use of the information to criminally investigate or prosecute any alcohol or drug abuse patient.[facility] CenterIn the event this information is protected by the Federal Confidentiality of Alcohol and Drug Abuse Patient Records regulations: The Federal rules restrict any use of the information to criminally investigate or prosecute any alcohol or drug abuse patient.[facility] CenterIn the event this information is protected by the Federal Confidentiality of Alcohol and Drug Abuse Patient Records regulations: The Federal rules restrict any use of the information to criminally investigate or prosecute any alcohol or drug abuse patient.[facility] CenterIn the event this information is protected by the Federal Confidentiality of Alcohol and Drug Abuse Patient Records regulations: The Federal rules restrict any use of the information to criminally investigate or prosecute any alcohol or drug abuse patient.[facility] CenterIn the event this information is protected by the Federal Confidentiality of Alcohol and Drug Abuse Patient Records regulations: The Federal rules restrict any use of the information to criminally investigate or prosecute any alcohol or drug abuse patient.[facility] CenterIn the event this information is protected by the Federal Confidentiality of Alcohol and Drug Abuse Patient Records regulations: The Federal rules restrict any use of the information to criminally investigate or prosecute any alcohol or drug abuse patient.[facility] CenterIn the event this information is protected by the Federal Confidentiality of Alcohol and Drug Abuse Patient Records regulations: The Federal rules restrict any use of the information to criminally investigate or prosecute any alcohol or drug abuse patient.[facility] CenterIn the event this information is protected by the Federal Confidentiality of Alcohol and Drug Abuse Patient Records regulations: The Federal rules restrict any use of the information to criminally investigate or prosecute any alcohol or drug abuse patient.[facility] CenterIn the event this information is protected by the Federal Confidentiality of Alcohol and Drug Abuse Patient Records regulations: The Federal rules restrict any use of the information to criminally investigate or prosecute any alcohol or drug abuse patient.[facility] CenterIn the event this information is protected by the Federal Confidentiality of Alcohol and Drug Abuse Patient Records regulations: The Federal rules restrict any use of the information to criminally investigate or prosecute any alcohol or drug abuse patient.[facility] CenterIn the event this information is protected by the Federal Confidentiality of Alcohol and Drug Abuse Patient Records regulations: The Federal rules restrict any use of the information to criminally investigate or prosecute any alcohol or drug abuse patient.[facility] CenterIn the event this information is protected by the Federal Confidentiality of Alcohol and Drug Abuse Patient Records regulations: The Federal rules restrict any use of the information to criminally investigate or prosecute any alcohol or drug abuse patient.[facility] CenterIn the event this information is protected by the Federal Confidentiality of Alcohol and Drug Abuse Patient Records regulations: The Federal rules restrict any use of the information to criminally investigate or prosecute any alcohol or drug abuse patient.[facility] CenterIn the event this information is protected by the Federal Confidentiality of Alcohol and Drug Abuse Patient Records regulations: The Federal rules restrict any use of the information to criminally investigate or prosecute any alcohol or drug abuse patient.[facility] CenterIn the event this information is protected by the Federal Confidentiality of Alcohol and Drug Abuse Patient Records regulations: The Federal rules restrict any use of the information to criminally investigate or prosecute any alcohol or drug abuse patient.[facility] CenterIn the event this information is protected by the Federal Confidentiality of Alcohol and Drug Abuse Patient Records regulations: The Federal rules restrict any use of the information to criminally investigate or prosecute any alcohol or drug abuse patient.[facility] CenterIn the event this information is protected by the Federal Confidentiality of Alcohol and Drug Abuse Patient Records regulations: The Federal rules restrict any use of the information to criminally investigate or prosecute any alcohol or drug abuse patient.[facility] CenterIn the event this information is protected by the Federal Confidentiality of Alcohol and Drug Abuse Patient Records regulations: The Federal rules restrict any use of the information to criminally investigate or prosecute any alcohol or drug abuse patient.[facility] CenterIn the event this information is protected by the Federal Confidentiality of Alcohol and Drug Abuse Patient Records regulations: The Federal rules restrict any use of the information to criminally investigate or prosecute any alcohol or drug abuse patient.[facility] CenterIn the event this information is protected by the Federal Confidentiality of Alcohol and Drug Abuse Patient Records regulations: The Federal rules restrict any use of the information to criminally investigate or prosecute any alcohol or drug abuse patient.[facility] CenterIn the event this information is protected by the Federal Confidentiality of Alcohol and Drug Abuse Patient Records regulations: The Federal rules restrict any use of the information to criminally investigate or prosecute any alcohol or drug abuse patient.[facility] CenterIn the event this information is protected by the Federal Confidentiality of Alcohol and Drug Abuse Patient Records regulations: The Federal rules restrict any use of the information to criminally investigate or prosecute any alcohol or drug abuse patient.[facility] CenterIn the event this information is protected by the Federal Confidentiality of Alcohol and Drug Abuse Patient Records regulations: The Federal rules restrict any use of the information to criminally investigate or prosecute any alcohol or drug abuse patient.[facility] CenterIn the event this information is protected by the Federal Confidentiality of Alcohol and Drug Abuse Patient Records regulations: The Federal rules restrict any use of the information to criminally investigate or prosecute any alcohol or drug abuse patient.[facility] CenterIn the event this information is protected by the Federal Confidentiality of Alcohol and Drug Abuse Patient Records regulations: The Federal rules restrict any use of the information to criminally investigate or prosecute any alcohol or drug abuse patient.[facility] CenterIn the event this information is protected by the Federal Confidentiality of Alcohol and Drug Abuse Patient Records regulations: The Federal rules restrict any use of the information to criminally investigate or prosecute any alcohol or drug abuse patient.[facility] CenterIn the event this information is protected by the Federal Confidentiality of Alcohol and Drug Abuse Patient Records regulations: The Federal rules restrict any use of the information to criminally investigate or prosecute any alcohol or drug abuse patient.[facility] CenterIn the event this information is protected by the Federal Confidentiality of Alcohol and Drug Abuse Patient Records regulations: The Federal rules restrict any use of the information to criminally investigate or prosecute any alcohol or drug abuse patient.[facility] CenterIn the event this information is protected by the Federal Confidentiality of Alcohol and Drug Abuse Patient Records regulations: The Federal rules restrict any use of the information to criminally investigate or prosecute any alcohol or drug abuse patient.[facility] CenterIn the event this information is protected by the Federal Confidentiality of Alcohol and Drug Abuse Patient Records regulations: The Federal rules restrict any use of the information to criminally investigate or prosecute any alcohol or drug abuse patient.[facility] CenterIn the event this information is protected by the Federal Confidentiality of Alcohol and Drug Abuse Patient Records regulations: The Federal rules restrict any use of the information to criminally investigate or prosecute any alcohol or drug abuse patient.[facility] CenterIn the event this information is protected by the Federal Confidentiality of Alcohol and Drug Abuse Patient Records regulations: The Federal rules restrict any use of the information to criminally investigate or prosecute any alcohol or drug abuse patient.[facility] CenterIn the event this information is protected by the Federal Confidentiality of Alcohol and Drug Abuse Patient Records regulations: The Federal rules restrict any use of the information to criminally investigate or prosecute any alcohol or drug abuse patient.[facility] CenterIn the event this information is protected by the Federal Confidentiality of Alcohol and Drug Abuse Patient Records regulations: The Federal rules restrict any use of the information to criminally investigate or prosecute any alcohol or drug abuse patient.[facility] CenterIn the event this information is protected by the Federal Confidentiality of Alcohol and Drug Abuse Patient Records regulations: The Federal rules restrict any use of the information to criminally investigate or prosecute any alcohol or drug abuse patient.[facility] CenterIn the event this information is protected by the Federal Confidentiality of Alcohol and Drug Abuse Patient Records regulations: The Federal rules restrict any use of the information to criminally investigate or prosecute any alcohol or drug abuse patient.[facility] CenterIn the event this information is protected by the Federal Confidentiality of Alcohol and Drug Abuse Patient Records regulations: The Federal rules restrict any use of the information to criminally investigate or prosecute any alcohol or drug abuse patient.[facility] CenterIn the event this information is protected by the Federal Confidentiality of Alcohol and Drug Abuse Patient Records regulations: The Federal rules restrict any use of the information to criminally investigate or prosecute any alcohol or drug abuse patient.[facility] CenterIn the event this information is protected by the Federal Confidentiality of Alcohol and Drug Abuse Patient Records regulations: The Federal rules restrict any use of the information to criminally investigate or prosecute any alcohol or drug abuse patient.[facility] CenterIn the event this information is protected by the Federal Confidentiality of Alcohol and Drug Abuse Patient Records regulations: The Federal rules restrict any use of the information to criminally investigate or prosecute any alcohol or drug abuse patient.[facility] CenterIn the event this information is protected by the Federal Confidentiality of Alcohol and Drug Abuse Patient Records regulations: The Federal rules restrict any use of the information to criminally investigate or prosecute any alcohol or drug abuse patient.[facility] CenterIn the event this information is protected by the Federal Confidentiality of Alcohol and Drug Abuse Patient Records regulations: The Federal rules restrict any use of the information to criminally investigate or prosecute any alcohol or drug abuse patient.[facility] CenterIn the event this information is protected by the Federal Confidentiality of Alcohol and Drug Abuse Patient Records regulations: The Federal rules restrict any use of the information to criminally investigate or prosecute any alcohol or drug abuse patient.[facility] CenterIn the event this information is protected by the Federal Confidentiality of Alcohol and Drug Abuse Patient Records regulations: The Federal rules restrict any use of the information to criminally investigate or prosecute any alcohol or drug abuse patient.[facility] the event this information is protected by the Federal Confidentiality of Alcohol and Drug Abuse Patient Records regulations: The Federal rules restrict any use of the information to criminally investigate or prosecute any alcohol or drug abuse patient.[facility] CenterIn the event this information is protected by the Federal Confidentiality of Alcohol and Drug Abuse Patient Records regulations: The Federal rules restrict any use of the information to criminally investigate or prosecute any alcohol or drug abuse patient.[facility] CenterIn the event this information is protected by the Federal Confidentiality of Alcohol and Drug Abuse Patient Records regulations: The Federal rules restrict any use of the information to criminally investigate or prosecute any alcohol or drug abuse patient.[facility]In the event this information is protected by the Federal Confidentiality of Alcohol and Drug Abuse Patient Records regulations: The Federal rules restrict any use of the information to criminally investigate or prosecute any alcohol or drug abuse patient.[facility] CenterIn the event this information is protected by the Federal Confidentiality of Alcohol and Drug Abuse Patient Records regulations: The Federal rules restrict any use of the information to criminally investigate or prosecute any alcohol or drug abuse patient.[facility] CenterIn the event this information is protected by the Federal Confidentiality of Alcohol and Drug Abuse Patient Records regulations: The Federal rules restrict any use of the information to criminally investigate or prosecute any alcohol or drug abuse patient.[facility] CenterIn the event this information is protected by the Federal Confidentiality of Alcohol and Drug Abuse Patient Records regulations: The Federal rules restrict any use of the information to criminally investigate or prosecute any alcohol or drug abuse patient.[facility] CenterIn the event this information is protected by the Federal Confidentiality of Alcohol and Drug Abuse Patient Records regulations: The Federal rules restrict any use of the information to criminally investigate or prosecute any alcohol or drug abuse patient.[facility] CenterIn the event this information is protected by the Federal Confidentiality of Alcohol and Drug Abuse Patient Records regulations: The Federal rules restrict any use of the information to criminally investigate or prosecute any alcohol or drug abuse patient.[facility] CenterIn the event this information is protected by the Federal Confidentiality of Alcohol and Drug Abuse Patient Records regulations: The Federal rules restrict any use of the information to criminally investigate or prosecute any alcohol or drug abuse patient.[facility] CenterIn the event this information is protected by the Federal Confidentiality of Alcohol and Drug Abuse Patient Records regulations: The Federal rules restrict any use of the information to criminally investigate or prosecute any alcohol or drug abuse patient.[facility] CenterIn the event this information is protected by the Federal Confidentiality of Alcohol and Drug Abuse Patient Records regulations: The Federal rules restrict any use of the information to criminally investigate or prosecute any alcohol or drug abuse patient.[facility] CenterIn the event this information is protected by the Federal Confidentiality of Alcohol and Drug Abuse Patient Records regulations: The Federal rules restrict any use of the information to criminally investigate or prosecute any alcohol or drug abuse patient.[facility] CenterIn the event this information is protected by the Federal Confidentiality of Alcohol and Drug Abuse Patient Records regulations: The Federal rules restrict any use of the information to criminally investigate or prosecute any alcohol or drug abuse patient.[facility] CenterIn the event this information is protected by the Federal Confidentiality of Alcohol and Drug Abuse Patient Records regulations: The Federal rules restrict any use of the information to criminally investigate or prosecute any alcohol or drug abuse patient.[facility] CenterIn the event this information is protected by the Federal Confidentiality of Alcohol and Drug Abuse Patient Records regulations: The Federal rules restrict any use of the information to criminally investigate or prosecute any alcohol or drug abuse patient.[facility] CenterIn the event this information is protected by the Federal Confidentiality of Alcohol and Drug Abuse Patient Records regulations: The Federal rules restrict any use of the information to criminally investigate or prosecute any alcohol or drug abuse patient.[facility] CenterIn the event this information is protected by the Federal Confidentiality of Alcohol and Drug Abuse Patient Records regulations: The Federal rules restrict any use of the information to criminally investigate or prosecute any alcohol or drug abuse patient.[facility] CenterIn the event this information is protected by the Federal Confidentiality of Alcohol and Drug Abuse Patient Records regulations: The Federal rules restrict any use of the information to criminally investigate or prosecute any alcohol or drug abuse patient.[facility] CenterIn the event this information is protected by the Federal Confidentiality of Alcohol and Drug Abuse Patient Records regulations: The Federal rules restrict any use of the information to criminally investigate or prosecute any alcohol or drug abuse patient.[facility]In the event this information is protected by the Federal Confidentiality of Alcohol and Drug Abuse Patient Records regulations: The Federal rules restrict any use of the information to criminally investigate or prosecute any alcohol or drug abuse patient.[facility]In the event this information is protected by the Federal Confidentiality of Alcohol and Drug Abuse Patient Records regulations: The Federal rules restrict any use of the information to criminally investigate or prosecute any alcohol or drug abuse patient.[facility] CenterIn the event this information is protected by the Federal Confidentiality of Alcohol and Drug Abuse Patient Records regulations: The Federal rules restrict any use of the information to criminally investigate or prosecute any alcohol or drug abuse patient.[facility] CenterIn the event this information is protected by the Federal Confidentiality of Alcohol and Drug Abuse Patient Records regulations: The Federal rules restrict any use of the information to criminally investigate or prosecute any alcohol or drug abuse patient.[facility] CenterIn the event this information is protected by the Federal Confidentiality of Alcohol and Drug Abuse Patient Records regulations: The Federal rules restrict any use of the information to criminally investigate or prosecute any alcohol or drug abuse patient.[facility] CenterIn the event this information is protected by the Federal Confidentiality of Alcohol and Drug Abuse Patient Records regulations: The Federal rules restrict any use of the information to criminally investigate or prosecute any alcohol or drug abuse patient.[facility] CenterIn the event this information is protected by the Federal Confidentiality of Alcohol and Drug Abuse Patient Records regulations: The Federal rules restrict any use of the information to criminally investigate or prosecute any alcohol or drug abuse patient.[facility] CenterIn the event this information is protected by the Federal Confidentiality of Alcohol and Drug Abuse Patient Records regulations: The Federal rules restrict any use of the information to criminally investigate or prosecute any alcohol or drug abuse patient.[facility] CenterIn the event this information is protected by the Federal Confidentiality of Alcohol and Drug Abuse Patient Records regulations: The Federal rules restrict any use of the information to criminally investigate or prosecute any alcohol or drug abuse patient.[facility] CenterIn the event this information is protected by the Federal Confidentiality of Alcohol and Drug Abuse Patient Records regulations: The Federal rules restrict any use of the information to criminally investigate or prosecute any alcohol or drug abuse patient.[facility] CenterIn the event this information is protected by the Federal Confidentiality of Alcohol and Drug Abuse Patient Records regulations: The Federal rules restrict any use of the information to criminally investigate or prosecute any alcohol or drug abuse patient.[facility] CenterIn the event this information is protected by the Federal Confidentiality of Alcohol and Drug Abuse Patient Records regulations: The Federal rules restrict any use of the information to criminally investigate or prosecute any alcohol or drug abuse patient.[facility] CenterIn the event this information is protected by the Federal Confidentiality of Alcohol and Drug Abuse Patient Records regulations: The Federal rules restrict any use of the information to criminally investigate or prosecute any alcohol or drug abuse patient.[facility] CenterIn the event this information is protected by the Federal Confidentiality of Alcohol and Drug Abuse Patient Records regulations: The Federal rules restrict any use of the information to criminally investigate or prosecute any alcohol or drug abuse patient.[facility] CenterIn the event this information is protected by the Federal Confidentiality of Alcohol and Drug Abuse Patient Records regulations: The Federal rules restrict any use of the information to criminally investigate or prosecute any alcohol or drug abuse patient.[facility] CenterIn the event this information is protected by the Federal Confidentiality of Alcohol and Drug Abuse Patient Records regulations: The Federal rules restrict any use of the information to criminally investigate or prosecute any alcohol or drug abuse patient.[facility] CenterIn the event this information is protected by the Federal Confidentiality of Alcohol and Drug Abuse Patient Records regulations: The Federal rules restrict any use of the information to criminally investigate or prosecute any alcohol or drug abuse patient.[facility] CenterIn the event this information is protected by the Federal Confidentiality of Alcohol and Drug Abuse Patient Records regulations: The Federal rules restrict any use of the information to criminally investigate or prosecute any alcohol or drug abuse patient.[facility] CenterIn the event this information is protected by the Federal Confidentiality of Alcohol and Drug Abuse Patient Records regulations: The Federal rules restrict any use of the information to criminally investigate or prosecute any alcohol or drug abuse patient.[facility] CenterIn the event this information is protected by the Federal Confidentiality of Alcohol and Drug Abuse Patient Records regulations: The Federal rules restrict any use of the information to criminally investigate or prosecute any alcohol or drug abuse patient.[facility] CenterIn the event this information is protected by the Federal Confidentiality of Alcohol and Drug Abuse Patient Records regulations: The Federal rules restrict any use of the information to criminally investigate or prosecute any alcohol or drug abuse patient.[facility] CenterIn the event this information is protected by the Federal Confidentiality of Alcohol and Drug Abuse Patient Records regulations: The Federal rules restrict any use of the information to criminally investigate or prosecute any alcohol or drug abuse patient.[facility] CenterIn the event this information is protected by the Federal Confidentiality of Alcohol and Drug Abuse Patient Records regulations: The Federal rules restrict any use of the information to criminally investigate or prosecute any alcohol or drug abuse patient.[facility] CenterIn the event this information is protected by the Federal Confidentiality of Alcohol and Drug Abuse Patient Records regulations: The Federal rules restrict any use of the information to criminally investigate or prosecute any alcohol or drug abuse patient.[facility] CenterIn the event this information is protected by the Federal Confidentiality of Alcohol and Drug Abuse Patient Records regulations: The Federal rules restrict any use of the information to criminally investigate or prosecute any alcohol or drug abuse patient.[facility] CenterIn the event this information is protected by the Federal Confidentiality of Alcohol and Drug Abuse Patient Records regulations: The Federal rules restrict any use of the information to criminally investigate or prosecute any alcohol or drug abuse patient.[facility] CenterIn the event this information is protected by the Federal Confidentiality of Alcohol and Drug Abuse Patient Records regulations: The Federal rules restrict any use of the information to criminally investigate or prosecute any alcohol or drug abuse patient.[facility] CenterIn the event this information is protected by the Federal Confidentiality of Alcohol and Drug Abuse Patient Records regulations: The Federal rules restrict any use of the information to criminally investigate or prosecute any alcohol or drug abuse patient.[facility] CenterIn the event this information is protected by the Federal Confidentiality of Alcohol and Drug Abuse Patient Records regulations: The Federal rules restrict any use of the information to criminally investigate or prosecute any alcohol or drug abuse patient.[facility] CenterIn the event this information is protected by the Federal Confidentiality of Alcohol and Drug Abuse Patient Records regulations: The Federal rules restrict any use of the information to criminally investigate or prosecute any alcohol or drug abuse patient.[facility] the event this information is protected by the Federal Confidentiality of Alcohol and Drug Abuse Patient Records regulations: The Federal rules restrict any use of the information to criminally investigate or prosecute any alcohol or drug abuse patient.[facility] CenterIn the event this information is protected by the Federal Confidentiality of Alcohol and Drug Abuse Patient Records regulations: The Federal rules restrict any use of the information to criminally investigate or prosecute any alcohol or drug abuse patient.[facility] CenterIn the event this information is protected by the Federal Confidentiality of Alcohol and Drug Abuse Patient Records regulations: The Federal rules restrict any use of the information to criminally investigate or prosecute any alcohol or drug abuse patient.[facility] the event this information is protected by the Federal Confidentiality of Alcohol and Drug Abuse Patient Records regulations: The Federal rules restrict any use of the information to criminally investigate or prosecute any alcohol or drug abuse patient.[facility] CenterIn the event this information is protected by the Federal Confidentiality of Alcohol and Drug Abuse Patient Records regulations: The Federal rules restrict any use of the information to criminally investigate or prosecute any alcohol or drug abuse patient.[facility] CenterIn the event this information is protected by the Federal Confidentiality of Alcohol and Drug Abuse Patient Records regulations: The Federal rules restrict any use of the information to criminally investigate or prosecute any alcohol or drug abuse patient.[facility] CenterIn the event this information is protected by the Federal Confidentiality of Alcohol and Drug Abuse Patient Records regulations: The Federal rules restrict any use of the information to criminally investigate or prosecute any alcohol or drug abuse patient.[facility] CenterIn the event this information is protected by the Federal Confidentiality of Alcohol and Drug Abuse Patient Records regulations: The Federal rules restrict any use of the information to criminally investigate or prosecute any alcohol or drug abuse patient.[facility] CenterIn the event this information is protected by the Federal Confidentiality of Alcohol and Drug Abuse Patient Records regulations: The Federal rules restrict any use of the information to criminally investigate or prosecute any alcohol or drug abuse patient.[facility] CenterIn the event this information is protected by the Federal Confidentiality of Alcohol and Drug Abuse Patient Records regulations: The Federal rules restrict any use of the information to criminally investigate or prosecute any alcohol or drug abuse patient.[facility] CenterIn the event this information is protected by the Federal Confidentiality of Alcohol and Drug Abuse Patient Records regulations: The Federal rules restrict any use of the information to criminally investigate or prosecute any alcohol or drug abuse patient.[facility] CenterIn the event this information is protected by the Federal Confidentiality of Alcohol and Drug Abuse Patient Records regulations: The Federal rules restrict any use of the information to criminally investigate or prosecute any alcohol or drug abuse patient.[facility] CenterIn the event this information is protected by the Federal Confidentiality of Alcohol and Drug Abuse Patient Records regulations: The Federal rules restrict any use of the information to criminally investigate or prosecute any alcohol or drug abuse patient.[facility] CenterIn the event this information is protected by the Federal Confidentiality of Alcohol and Drug Abuse Patient Records regulations: The Federal rules restrict any use of the information to criminally investigate or prosecute any alcohol or drug abuse patient.[facility] CenterIn the event this information is protected by the Federal Confidentiality of Alcohol and Drug Abuse Patient Records regulations: The Federal rules restrict any use of the information to criminally investigate or prosecute any alcohol or drug abuse patient.[facility] CenterIn the event this information is protected by the Federal Confidentiality of Alcohol and Drug Abuse Patient Records regulations: The Federal rules restrict any use of the information to criminally investigate or prosecute any alcohol or drug abuse patient.[facility] CenterIn the event this information is protected by the Federal Confidentiality of Alcohol and Drug Abuse Patient Records regulations: The Federal rules restrict any use of the information to criminally investigate or prosecute any alcohol or drug abuse patient.[facility] CenterIn the event this information is protected by the Federal Confidentiality of Alcohol and Drug Abuse Patient Records regulations: The Federal rules restrict any use of the information to criminally investigate or prosecute any alcohol or drug abuse patient.[facility] CenterIn the event this information is protected by the Federal Confidentiality of Alcohol and Drug Abuse Patient Records regulations: The Federal rules restrict any use of the information to criminally investigate or prosecute any alcohol or drug abuse patient.[facility] CenterIn the event this information is protected by the Federal Confidentiality of Alcohol and Drug Abuse Patient Records regulations: The Federal rules restrict any use of the information to criminally investigate or prosecute any alcohol or drug abuse patient.[facility] CenterIn the event this information is protected by the Federal Confidentiality of Alcohol and Drug Abuse Patient Records regulations: The Federal rules restrict any use of the information to criminally investigate or prosecute any alcohol or drug abuse patient.[facility] CenterIn the event this information is protected by the Federal Confidentiality of Alcohol and Drug Abuse Patient Records regulations: The Federal rules restrict any use of the information to criminally investigate or prosecute any alcohol or drug abuse patient.[facility] CenterIn the event this information is protected by the Federal Confidentiality of Alcohol and Drug Abuse Patient Records regulations: The Federal rules restrict any use of the information to criminally investigate or prosecute any alcohol or drug abuse patient.[facility] CenterIn the event this information is protected by the Federal Confidentiality of Alcohol and Drug Abuse Patient Records regulations: The Federal rules restrict any use of the information to criminally investigate or prosecute any alcohol or drug abuse patient.[facility] CenterIn the event this information is protected by the Federal Confidentiality of Alcohol and Drug Abuse Patient Records regulations: The Federal rules restrict any use of the information to criminally investigate or prosecute any alcohol or drug abuse patient.[facility] CenterIn the event this information is protected by the Federal Confidentiality of Alcohol and Drug Abuse Patient Records regulations: The Federal rules restrict any use of the information to criminally investigate or prosecute any alcohol or drug abuse patient.[facility] CenterIn the event this information is protected by the Federal Confidentiality of Alcohol and Drug Abuse Patient Records regulations: The Federal rules restrict any use of the information to criminally investigate or prosecute any alcohol or drug abuse patient.[facility] CenterIn the event this information is protected by the Federal Confidentiality of Alcohol and Drug Abuse Patient Records regulations: The Federal rules restrict any use of the information to criminally investigate or prosecute any alcohol or drug abuse patient.[facility] CenterIn the event this information is protected by the Federal Confidentiality of Alcohol and Drug Abuse Patient Records regulations: The Federal rules restrict any use of the information to criminally investigate or prosecute any alcohol or drug abuse patient.[facility]In the event this information is protected by the Federal Confidentiality of Alcohol and Drug Abuse Patient Records regulations: The Federal rules restrict any use of the information to criminally investigate or prosecute any alcohol or drug abuse patient.[facility] CenterIn the event this information is protected by the Federal Confidentiality of Alcohol and Drug Abuse Patient Records regulations: The Federal rules restrict any use of the information to criminally investigate or prosecute any alcohol or drug abuse patient.[facility] CenterIn the event this information is protected by the Federal Confidentiality of Alcohol and Drug Abuse Patient Records regulations: The Federal rules restrict any use of the information to criminally investigate or prosecute any alcohol or drug abuse patient.[facility] CenterIn the event this information is protected by the Federal Confidentiality of Alcohol and Drug Abuse Patient Records regulations: The Federal rules restrict any use of the information to criminally investigate or prosecute any alcohol or drug abuse patient.[facility] CenterIn the event this information is protected by the Federal Confidentiality of Alcohol and Drug Abuse Patient Records regulations: The Federal rules restrict any use of the information to criminally investigate or prosecute any alcohol or drug abuse patient.[facility] CenterIn the event this information is protected by the Federal Confidentiality of Alcohol and Drug Abuse Patient Records regulations: The Federal rules restrict any use of the information to criminally investigate or prosecute any alcohol or drug abuse patient.[facility] CenterIn the event this information is protected by the Federal Confidentiality of Alcohol and Drug Abuse Patient Records regulations: The Federal rules restrict any use of the information to criminally investigate or prosecute any alcohol or drug abuse patient.[facility] CenterIn the event this information is protected by the Federal Confidentiality of Alcohol and Drug Abuse Patient Records regulations: The Federal rules restrict any use of the information to criminally investigate or prosecute any alcohol or drug abuse patient.[facility] CenterIn the event this information is protected by the Federal Confidentiality of Alcohol and Drug Abuse Patient Records regulations: The Federal rules restrict any use of the information to criminally investigate or prosecute any alcohol or drug abuse patient.[facility] CenterIn the event this information is protected by the Federal Confidentiality of Alcohol and Drug Abuse Patient Records regulations: The Federal rules restrict any use of the information to criminally investigate or prosecute any alcohol or drug abuse patient.[facility] CenterIn the event this information is protected by the Federal Confidentiality of Alcohol and Drug Abuse Patient Records regulations: The Federal rules restrict any use of the information to criminally investigate or prosecute any alcohol or drug abuse patient.[facility] CenterIn the event this information is protected by the Federal Confidentiality of Alcohol and Drug Abuse Patient Records regulations: The Federal rules restrict any use of the information to criminally investigate or prosecute any alcohol or drug abuse patient.[facility] CenterIn the event this information is protected by the Federal Confidentiality of Alcohol and Drug Abuse Patient Records regulations: The Federal rules restrict any use of the information to criminally investigate or prosecute any alcohol or drug abuse patient.[facility] CenterIn the event this information is protected by the Federal Confidentiality of Alcohol and Drug Abuse Patient Records regulations: The Federal rules restrict any use of the information to criminally investigate or prosecute any alcohol or drug abuse patient.[facility] CenterIn the event this information is protected by the Federal Confidentiality of Alcohol and Drug Abuse Patient Records regulations: The Federal rules restrict any use of the information to criminally investigate or prosecute any alcohol or drug abuse patient.[facility] CenterIn the event this information is protected by the Federal Confidentiality of Alcohol and Drug Abuse Patient Records regulations: The Federal rules restrict any use of the information to criminally investigate or prosecute any alcohol or drug abuse patient.[facility] CenterIn the event this information is protected by the Federal Confidentiality of Alcohol and Drug Abuse Patient Records regulations: The Federal rules restrict any use of the information to criminally investigate or prosecute any alcohol or drug abuse patient.[facility]In the event this information is protected by the Federal Confidentiality of Alcohol and Drug Abuse Patient Records regulations: The Federal rules restrict any use of the information to criminally investigate or prosecute any alcohol or drug abuse patient.[facility] CenterIn the event this information is protected by the Federal Confidentiality of Alcohol and Drug Abuse Patient Records regulations: The Federal rules restrict any use of the information to criminally investigate or prosecute any alcohol or drug abuse patient.[facility]In the event this information is protected by the Federal Confidentiality of Alcohol and Drug Abuse Patient Records regulations: The Federal rules restrict any use of the information to criminally investigate or prosecute any alcohol or drug abuse patient.[facility] CenterIn the event this information is protected by the Federal Confidentiality of Alcohol and Drug Abuse Patient Records regulations: The Federal rules restrict any use of the information to criminally investigate or prosecute any alcohol or drug abuse patient.[facility] the event this information is protected by the Federal Confidentiality of Alcohol and Drug Abuse Patient Records regulations: The Federal rules restrict any use of the information to criminally investigate or prosecute any alcohol or drug abuse patient.[facility] CenterIn the event this information is protected by the Federal Confidentiality of Alcohol and Drug Abuse Patient Records regulations: The Federal rules restrict any use of the information to criminally investigate or prosecute any alcohol or drug abuse patient.[facility] CenterIn the event this information is protected by the Federal Confidentiality of Alcohol and Drug Abuse Patient Records regulations: The Federal rules restrict any use of the information to criminally investigate or prosecute any alcohol or drug abuse patient.[facility]In the event this information is protected by the Federal Confidentiality of Alcohol and Drug Abuse Patient Records regulations: The Federal rules restrict any use of the information to criminally investigate or prosecute any alcohol or drug abuse patient.[facility] CenterIn the event this information is protected by the Federal Confidentiality of Alcohol and Drug Abuse Patient Records regulations: The Federal rules restrict any use of the information to criminally investigate or prosecute any alcohol or drug abuse patient.[facility]In the event this information is protected by the Federal Confidentiality of Alcohol and Drug Abuse Patient Records regulations: The Federal rules restrict any use of the information to criminally investigate or prosecute any alcohol or drug abuse patient.[facility] CenterIn the event this information is protected by the Federal Confidentiality of Alcohol and Drug Abuse Patient Records regulations: The Federal rules restrict any use of the information to criminally investigate or prosecute any alcohol or drug abuse patient.[facility] CenterIn the event this information is protected by the Federal Confidentiality of Alcohol and Drug Abuse Patient Records regulations: The Federal rules restrict any use of the information to criminally investigate or prosecute any alcohol or drug abuse patient.[facility] CenterIn the event this information is protected by the Federal Confidentiality of Alcohol and Drug Abuse Patient Records regulations: The Federal rules restrict any use of the information to criminally investigate or prosecute any alcohol or drug abuse patient.[facility] CenterIn the event this information is protected by the Federal Confidentiality of Alcohol and Drug Abuse Patient Records regulations: The Federal rules restrict any use of the information to criminally investigate or prosecute any alcohol or drug abuse patient.[facility] CenterIn the event this information is protected by the Federal Confidentiality of Alcohol and Drug Abuse Patient Records regulations: The Federal rules restrict any use of the information to criminally investigate or prosecute any alcohol or drug abuse patient.[facility] CenterIn the event this information is protected by the Federal Confidentiality of Alcohol and Drug Abuse Patient Records regulations: The Federal rules restrict any use of the information to criminally investigate or prosecute any alcohol or drug abuse patient.[facility] CenterIn the event this information is protected by the Federal Confidentiality of Alcohol and Drug Abuse Patient Records regulations: The Federal rules restrict any use of the information to criminally investigate or prosecute any alcohol or drug abuse patient.[facility] CenterIn the event this information is protected by the Federal Confidentiality of Alcohol and Drug Abuse Patient Records regulations: The Federal rules restrict any use of the information to criminally investigate or prosecute any alcohol or drug abuse patient.[facility] CenterIn the event this information is protected by the Federal Confidentiality of Alcohol and Drug Abuse Patient Records regulations: The Federal rules restrict any use of the information to criminally investigate or prosecute any alcohol or drug abuse patient.[facility] CenterIn the event this information is protected by the Federal Confidentiality of Alcohol and Drug Abuse Patient Records regulations: The Federal rules restrict any use of the information to criminally investigate or prosecute any alcohol or drug abuse patient.[facility] CenterIn the event this information is protected by the Federal Confidentiality of Alcohol and Drug Abuse Patient Records regulations: The Federal rules restrict any use of the information to criminally investigate or prosecute any alcohol or drug abuse patient.[facility] CenterIn the event this information is protected by the Federal Confidentiality of Alcohol and Drug Abuse Patient Records regulations: The Federal rules restrict any use of the information to criminally investigate or prosecute any alcohol or drug abuse patient.[facility] CenterIn the event this information is protected by the Federal Confidentiality of Alcohol and Drug Abuse Patient Records regulations: The Federal rules restrict any use of the information to criminally investigate or prosecute any alcohol or drug abuse patient.[facility] CenterIn the event this information is protected by the Federal Confidentiality of Alcohol and Drug Abuse Patient Records regulations: The Federal rules restrict any use of the information to criminally investigate or prosecute any alcohol or drug abuse patient.[facility] CenterIn the event this information is protected by the Federal Confidentiality of Alcohol and Drug Abuse Patient Records regulations: The Federal rules restrict any use of the information to criminally investigate or prosecute any alcohol or drug abuse patient.[facility] CenterIn the event this information is protected by the Federal Confidentiality of Alcohol and Drug Abuse Patient Records regulations: The Federal rules restrict any use of the information to criminally investigate or prosecute any alcohol or drug abuse patient.[facility] CenterIn the event this information is protected by the Federal Confidentiality of Alcohol and Drug Abuse Patient Records regulations: The Federal rules restrict any use of the information to criminally investigate or prosecute any alcohol or drug abuse patient.[facility] CenterIn the event this information is protected by the Federal Confidentiality of Alcohol and Drug Abuse Patient Records regulations: The Federal rules restrict any use of the information to criminally investigate or prosecute any alcohol or drug abuse patient.[facility] CenterIn the event this information is protected by the Federal Confidentiality of Alcohol and Drug Abuse Patient Records regulations: The Federal rules restrict any use of the information to criminally investigate or prosecute any alcohol or drug abuse patient.[facility] CenterIn the event this information is protected by the Federal Confidentiality of Alcohol and Drug Abuse Patient Records regulations: The Federal rules restrict any use of the information to criminally investigate or prosecute any alcohol or drug abuse patient.[facility] CenterIn the event this information is protected by the Federal Confidentiality of Alcohol and Drug Abuse Patient Records regulations: The Federal rules restrict any use of the information to criminally investigate or prosecute any alcohol or drug abuse patient.[facility] Care Teams (unrecognized sec tion and content) Chain Tender Relationship Specialty Start Date End Date Christina Azul MD [address] [address] PCP - General Family Practice 07/03/21 Sofie Diana MD [address] [place], [place] [id number] Primary Staff Physician Cardiology 07/03/21 Verito Whelan MD [address] [place] [address] Referring Pulmonary Disease 10/04/21 Chain Tender Relationship Specialty Start Date End Date Christina Azul MD [address] [place] [id number] PCP - General Family Practice 07/03/21 Sofie Diana MD [address] [place] [address] Primary Staff Physician Cardiology 07/03/21 Verito Whelan MD [address] [place], [place] [id number] Referring Pulmonary Disease 10/04/21 Chain Tender Relationship Specialty Start Date End Date Christina Azul MD [address] [place] [id number] PCP - General Family Practice 07/03/21 Sofie Diana MD [address] [place] [address] Primary Staff Physician Cardiology 07/03/21 Verito Whelan MD [address] [place] [address] Referring Pulmonary Disease 10/04/21 Chain Tender Relationship Specialty Start Date End Date Christina Azul MD [address] [place], [place] [id number] PCP - [facility] Practice 07/03/21 Sofie Diana MD [address] [place] [address] Primary Staff Physician Cardiology 07/03/21 Verito Whelan MD [address] [place] [address] Referring Pulmonary Disease 10/04/21 Nina Grigsby MD [address] [facility] [place] [address] Physician Hematology/Oncology 10/25/21 Patricia Miller, OZZIE.SOLAR PANEL TECHNICIAN [address] [facility] [place] [address] Nurse Practitioner Hematology/Oncology 10/25/21 Denita Rai, KERRY [address] [facility] [place] [address] Specialty Automatic Lathe Operator Hematology/Oncology 10/25/21 Chain Tender Relationship Specialty Start Date End Date Christina Azul MD [address] [place] [address] PCP - General Family Practice 07/03/21 oSfie Diana MD [address] [place] [address] Primary Staff Physician Cardiology 07/03/21 Verito Whelan MD [address] [place] [address] Referring Pulmonary Disease 10/04/21 Nina Grigsby MD [address] [facility] [place] [address] Physician Hematology/Oncology 10/25/21 Patricia Miller, PLANOGRAPH OPERATOR.SOLAR PANEL TECHNICIAN [address] [facility] [place] [address] Nurse Practitioner Hematology/Oncology 10/25/21 Denita Rai, KERRY [address] [facility] [place] [address] Specialty Automatic Lathe Operator Hematology/Oncology 10/25/21 Chain Tender Relationship Specialty Start Date End Date Christina Azul MD [address] [place] [id number] PCP - General Family Practice 07/03/21 Sofie Diana MD [address] [place] [address] Primary Staff Physician Cardiology 07/03/21 Verito Whelan MD [address] [place] [address] Referring Pulmonary Disease 10/04/21 Chain Tender Relationship Specialty Start Date End Date Christina Azul MD [address] [place] [address] PCP - General Family Practice 07/03/21 Sofie Diana MD [address] [place] [address] Primary Staff Physician Cardiology 07/03/21 Verito Whelan MD [address] [place] [address] Referring Pulmonary Disease 10/04/21 Nina Grigsby MD [address] [facility] [place] [address] Physician Hematology/Oncology 10/25/21 Patricia Miller, PLANOGRAPH OPERATOR.SOLAR PANEL TECHNICIAN [address] [facility] [place] [address] Nurse Practitioner Hematology/Oncology 10/25/21 Denita Rai, RN [address] [facility] [place] [address] Specialty Automatic Lathe Operator Hematology/Oncology 10/25/21 Chain Tender Relationship Specialty Start Date End Date Christina Azul MD [address] [place] [address] PCP - General Family Practice 07/03/21 Sofie Diana MD [address] [place] [address] Primary Staff Physician Cardiology 07/03/21 Verito Whelan MD [address] [place] [address] Referring Pulmonary Disease 10/04/21 Nina Grigsby MD [address] [facility] [place] [address] Physician Hematology/Oncology 10/25/21 Patricia Miller, PLANOGRAPH OPERATOR.SOLAR PANEL TECHNICIAN [address] [facility] [place] [address] Nurse Practitioner Hematology/Oncology 10/25/21 Denita Rai, RN [address] [facility] [place] [address] Specialty Automatic Lathe Operator Hematology/Oncology 10/25/21 Chain Tender Relationship Specialty Start Date End Date Christina Azul MD [address] [place] [address] PCP - General Family Practice 07/03/21 Sofie Diana MD [address] [place] [address] Primary Staff Physician Cardiology 07/03/21 Verito Whelan MD [address] [place] [address] Referring Pulmonary Disease 10/04/21 Nina Grigsby MD [address] [facility] [place] [address] Physician Hematology/Oncology 10/25/21 Patricia Miller, OZZIE.SOLAR PANEL TECHNICIAN [address] [facility] [place] [address] Nurse Practitioner Hematology/Oncology 10/25/21 Denita Rai, RN [address] [facility] [place] [address] Specialty Automatic Lathe Operator Hematology/Oncology 10/25/21 Chain Tender Relationship Specialty Start Date End Date Christina Azul MD [address] [place] [address] PCP - General Family Practice 07/03/21 Sofie Diana MD [address] [place] [address] Primary Staff Physician Cardiology 07/03/21 Verito Whelan MD [address] [place] [address] Referring Pulmonary Disease 10/04/21 Nina Grigsby MD [address] [facility] [place] [address] Physician Hematology/Oncology 10/25/21 Patricia Miller, PLANOGRAPH OPERATOR.SOLAR PANEL TECHNICIAN [address] [facility] [place] [address] Nurse Practitioner Hematology/Oncology 10/25/21 Denita Rai, KERRY [address] [facility] [place] [address] Specialty Automatic Lathe Operator Hematology/Oncology 10/25/21 Chain Tender Relationship Specialty Start Date End Date Christina Azul MD [address] [place] [address] PCP - General Family Practice 07/03/21 Sofie Diana MD [address] [place] [address] Primary Staff Physician Cardiology 07/03/21 Verito Whelan MD [address] [place] [address] Referring Pulmonary Disease 10/04/21 Nina Grigsby MD [address] [facility] [place] [address] Physician Hematology/Oncology 10/25/21 Patricia Miller, PLANOGRAPH OPERATOR.SOLAR PANEL TECHNICIAN [address] [facility] [place] [address] Nurse Practitioner Hematology/Oncology 10/25/21 Denita Rai, KERRY [address] [facility] [place] [address] Specialty Automatic Lathe Operator Hematology/Oncology 10/25/21 Chain Tender Relationship Specialty Start Date End Date Christina Azul MD [address] [place], [place] [id number] PCP - General [facility] Practice 07/03/21 Sofie Diana MD [address] [place] [address] Primary Staff Physician Cardiology 07/03/21 Verito Whelan MD [address] [place] [address] Referring Pulmonary Disease 10/04/21 Nina Grigsby MD [address] [place] [address] [place] [address] Physician Hematology/Oncology 10/25/21 Patricia Miller, OZZIE.SOLAR PANEL TECHNICIAN [address] [facility] [place] [address] Nurse Practitioner Hematology/Oncology 10/25/21 Denita Rai, RN [address] [facility] [place] [address] Specialty Automatic Lathe Operator Hematology/Oncology 10/25/21 Chain Tender Relationship Specialty Start Date End Date Christina Azul MD [address] [place] [id number] PCP - General [facility] Practice 07/03/21 Sofie Diana MD [address] [place] [address] Primary Staff Physician Cardiology 07/03/21 Verito Whelan MD [address] [place] [address] Referring Pulmonary Disease 10/04/21 Nina Grigsby MD [address] [facility] [place] [address] Physician Hematology/Oncology 10/25/21 Patricia Miller, PLANOGRAPH OPERATOR.[address] [place] [address] Nurse Practitioner Hematology/Oncology 10/25/21 Denita Rai, KERRY [address] [place] [address] [place] [address] Specialty Automatic Lathe Operator Hematology/Oncology 10/25/21 Chain Tender Relationship Specialty Start Date End Date Christina Azul MD [address] [place] [address] PCP - General Family Practice 07/03/21 Sofie Diana MD [address] [place] [address] Primary Staff Physician Cardiology 07/03/21 Verito Whelan MD [address] [place] [address] Referring Pulmonary Disease 10/04/21 Nina Grigsby MD [address] [place] [address] [place] [address] Physician Hematology/Oncology 10/25/21 Patricia Milelr, PLANOGRAPH OPERATOR.[address] [place] [address] Nurse Practitioner Hematology/Oncology 10/25/21 Denita Rai, KERRY [address] [place] [address] [place] [address] Specialty Automatic Lathe Operator Hematology/Oncology 10/25/21 Chain Tender Relationship Specialty Start Date End Date Christina Azul MD [address] [place] [address] PCP - General Family Practice 07/03/21 Sofie Diana MD [address] [place], [place] [id number] Primary Staff Physician Cardiology 07/03/21 Verito Whelan MD [address] [place], [place] 1592[address] Referring Pulmonary Disease 10/04/21 Nina Grigsby MD [address] [facility] [place] [address] Physician Hematology/Oncology 10/25/21 Patricia Miller, PLANOGRAPH OPERATOR.SOLAR PANEL TECHNICIAN [address] [facility] [place] [address] Nurse Practitioner Hematology/Oncology 10/25/21 Denita Rai, KERRY [address] [facility] [place] [address] Specialty Automatic Lathe Operator Hematology/Oncology 10/25/21 Chain Tender Relationship Specialty Start Date End Date Christina Azul MD [address] [place] [address] PCP - General Family Practice 07/03/21 Sofie Diana MD [address] [place] [address] Primary Staff Physician Cardiology 07/03/21 Verito Whelan MD [address] [place] [address] Referring Pulmonary Disease 10/04/21 Nina Grigsby MD [address] [facility] [place] [address] Physician Hematology/Oncology 10/25/21 Patricia Miller, PLANOGRAPH OPERATOR.SOLAR PANEL TECHNICIAN [address] [facility] [place] [address] Nurse Practitioner Hematology/Oncology 10/25/21 Denita Rai, RN [address] [facility] [place] [address] Specialty Automatic Lathe Operator Hematology/Oncology 10/25/21 Chain Tender Relationship Specialty Start Date End Date Christina Azul MD [address] [place] [address] PCP - General Family Practice 07/03/21 Sofie Diana MD [address] [place], [place] 3620[address] Primary Staff Physician Cardiology 07/03/21 Verito Whelan MD [address] [place] [address] Referring Pulmonary Disease 10/04/21 Nina Grigsby MD [address] [facility] [place] [address] Physician Hematology/Oncology 10/25/21 Patricia Miller, OZZIE.[facility] [address] [facility] [place] [address] Nurse Practitioner Hematology/Oncology 10/25/21 Denita Rai, RN [address] [place] [address] [place] [address] Specialty Automatic Lathe Operator Hematology/Oncology 10/25/21 Chain Tender Relationship Specialty Start Date End Date Christina Azul MD [address] [place] [id number] PCP - General Family Practice 07/03/21 Sofie Diana MD [address] [place] [address] Primary Staff Physician Cardiology 07/03/21 Verito Whelan MD [address] [place] [address] Referring Pulmonary Disease 10/04/21 Nina Grigsby MD [address] [facility] [place] [address] Physician Hematology/Oncology 10/25/21 Patricia Miller, PLANOGRAPH OPERATOR.SOLAR PANEL TECHNICIAN [address] [facility] [place] [address] Nurse Practitioner Hematology/Oncology 10/25/21 Denita Rai, KERRY [address] [place] [address] [place] [address] Specialty Automatic Lathe Operator Hematology/Oncology 10/25/21 Chain Tender Relationship Specialty Start Date End Date Christina Azul MD [address] [place] [address] PCP - General Family Practice 07/03/21 Sofie Diana MD [address] [place] [address] Primary Staff Physician Cardiology 07/03/21 Verito Whelan MD [address] [place] [address] Referring Pulmonary Disease 10/04/21 Nina Grigsby MD [address] [facility] [place] [address] Physician Hematology/Oncology 10/25/21 Patricia Miller, PLANOGRAPH OPERATOR.SOLAR PANEL TECHNICIAN [address] [facility] [place] [address] Nurse Practitioner Hematology/Oncology 10/25/21 Denita Rai, RN [address] [facility] [place] [address] Specialty Automatic Lathe Operator Hematology/Oncology 10/25/21 Chain Tender Relationship Specialty Start Date End Date Christina Azul MD [address] [place] [address] PCP - General Family Practice 07/03/21 Sofie Diana MD [address] [place] [address] Primary Staff Physician Cardiology 07/03/21 Verito Whelan MD [address] [place], [place] [address] Referring Pulmonary Disease 10/04/21 Nina Grigsby MD [address] [facility] [place] [address] Physician Hematology/Oncology 10/25/21 Patricia Miller, PLANOGRAPH OPERATOR.SOLAR PANEL TECHNICIAN [address] [facility] [place] [address] Nurse Practitioner Hematology/Oncology 10/25/21 Denita Rai, RN [address] [facility] [place] [address] Specialty Automatic Lathe Operator Hematology/Oncology 10/25/21 Chain Tender Relationship Specialty Start Date End Date Christina Azul MD [address] [place] [address] PCP - General Family Practice 07/03/21 Sofie Diana MD [address] [place] [address] Primary Staff Physician Cardiology 07/03/21 Verito Whelan MD [address] [place] [address] Referring Pulmonary Disease 10/04/21 Nina Grigsby MD [address] [facility] [place] [address] Physician Hematology/Oncology 10/25/21 Patricia Miller, PLANOGRAPH OPERATOR.SOLAR PANEL TECHNICIAN [address] [facility] [place] [address] Nurse Practitioner Hematology/Oncology 10/25/21 Denita Rai, KERRY [address] [facility] [place] [address] Specialty Automatic Lathe Operator Hematology/Oncology 10/25/21 Chain Tender Relationship Specialty Start Date End Date Christina Azul MD [address] [place] [address] PCP - General Family Practice 07/03/21 Sofie Diana MD [address] [place] [address] Primary Staff Physician Cardiology 07/03/21 Verito Whelan MD [address] [place] [address] Referring Pulmonary Disease 10/04/21 Nina Grigsby MD [address] [facility] [place] [address] Physician Hematology/Oncology 10/25/21 Patricia Miller, PLANOGRAPH OPERATOR.SOLAR PANEL TECHNICIAN [address] [facility] [place] [address] Nurse Practitioner Hematology/Oncology 10/25/21 Denita Rai, RN [address] [facility] [place] [address] Specialty Automatic Lathe Operator Hematology/Oncology 10/25/21 Chain Tender Relationship Specialty Start Date End Date Christina Azul MD [address] [place] [address] PCP - General [facility] Practice 07/03/21 Sofie Diana MD [address] [place] [address] Primary Staff Physician Cardiology 07/03/21 Verito Whelan MD [address] [place] [address] Referring Pulmonary Disease 10/04/21 Nina Grigsby MD [address] [facility] [place] [address] Physician Hematology/Oncology 10/25/21 Patricia Miller APRN.SOLAR PANEL TECHNICIAN [address] [facility] [place] [address] Nurse Practitioner Hematology/Oncology 10/25/21 Denita Rai, RN [address] [facility] [place] [address] Specialty Automatic Lathe Operator Hematology/Oncology 10/25/21 Chain Tender Relationship Specialty Start Date End Date Christina Azul MD [address] [place] [id number] PCP - General Family Practice 07/03/21 Sofie Diana MD [address] [place] [address] Primary Staff Physician Cardiology 07/03/21 Verito Whelan MD [address] [place] [address] Referring Pulmonary Disease 10/04/21 Nina Grigsby MD [address] [facility] [place] [address] Physician Hematology/Oncology 10/25/21 Patricia Miller, PLANOGRAPH OPERATOR.SOLAR PANEL TECHNICIAN [address] [facility] [place] [address] Nurse Practitioner Hematology/Oncology 10/25/21 Denita Rai, RN [address] [facility] [place] [address] Specialty Automatic Lathe Operator Hematology/Oncology 10/25/21 Chain Tender Relationship Specialty Start Date End Date Christina Azul MD [address] [place] [address] PCP - General Family Practice 07/03/21 Sofie Diana MD [address] [place] [address] Primary Staff Physician Cardiology 07/03/21 Verito Whelan MD [address] [place] [address] Referring Pulmonary Disease 10/04/21 Nina Grigsby MD [address] [facility] [place] [address] Physician Hematology/Oncology 10/25/21 Patricia Miller, PLANOGRAPH OPERATOR.SOLAR PANEL TECHNICIAN [address] [facility] [place] [address] Nurse Practitioner Hematology/Oncology 10/25/21 Denita Rai, KERRY [address] [facility] [place] [place] [address] Specialty Automatic Lathe Operator Hematology/Oncology 10/25/21 Chain Tender Relationship Specialty Start Date End Date Christina Azul MD [address] [place] [address] PCP - General Family Practice 07/03/21 Sofie Diana MD [address] [place] [address] Primary Staff Physician Cardiology 07/03/21 Verito Whelan MD [address] [place] [address] Referring Pulmonary Disease 10/04/21 Nina Grigsby MD [address] [facility] [place] [address] Physician Hematology/Oncology 10/25/21 Patricia Miller, PLANOGRAPH OPERATOR.SOLAR PANEL TECHNICIAN [address] [facility] [place] [address] Nurse Practitioner Hematology/Oncology 10/25/21 Denita Rai, KERRY [address] [facility] [place] [address] Specialty Automatic Lathe Operator Hematology/Oncology 10/25/21 Chain Tender Relationship Specialty Start Date End Date Christina Azul MD [address] [place] [address] PCP - [facility] Practice 07/03/21 Sofie Diana MD [address] [place] [address] Primary Staff Physician Cardiology 07/03/21 Verito Whelan MD [address] [place] [address] Referring Pulmonary Disease 10/04/21 Nina Grigsby MD [address] [facility] [place] [address] Physician Hematology/Oncology 10/25/21 Patricia Miller, PLANOGRAPH OPERATOR.SOLAR PANEL TECHNICIAN [address] [facility] [place] [address] Nurse Practitioner Hematology/Oncology 10/25/21 Denita Rai, KERRY [address] [place] [address] [place] [address] Specialty Automatic Lathe Operator Hematology/Oncology 10/25/21 Team Status: Inactive Member Role Status Dates Cristy Swann PA-C Attending Provider Active PHYSICIAN NO FAMILY Primary Care Provider Active Team Status: Active Member Role Status Dates PHYSICIAN NO FAMILY Primary Care Provider Active Chain Tender Relationship Specialty Start Date End Date Christina Azul MD [address] [place] [address] PCP - General [facility] Practice 07/03/21 Sofie Diana MD [address] [place] [address] Primary Staff Physician Cardiology 07/03/21 Verito Whelan MD [address] [place] [address] Referring Pulmonary Disease 10/04/21 Nina Grigsby MD [address] [facility] [place] [address] Physician Hematology/Oncology 10/25/21 Patricia Miller, OZZIE.SOLAR PANEL TECHNICIAN [address] [facility] [place] [address] Nurse Practitioner Hematology/Oncology 10/25/21 Denita Rai, KERRY [address] [place] [address] [place] [address] Specialty Automatic Lathe Operator Hematology/Oncology 10/25/21 Chain Tender Relationship Specialty Start Date End Date Christina Azul MD [address] [place] [address] PCP - General Family Practice 07/03/21 Sofie Diana MD [address] [place] [address] Primary Staff Physician Cardiology 07/03/21 Verito Whelan MD [address] [place] [address] Referring Pulmonary Disease 10/04/21 Nina Grigsby MD [address] [facility] [place] [address] Physician Hematology/Oncology 10/25/21 Patricia Miller, PLANOGRAPH OPERATOR.SOLAR PANEL TECHNICIAN [address] [facility] [place] [address] Nurse Practitioner Hematology/Oncology 10/25/21 Denita Rai, KERRY [address] [facility] [place] [address] Specialty Automatic Lathe Operator Hematology/Oncology 10/25/21 Chain Tender Relationship Specialty Start Date End Date Christina Azul MD [address] [place] [address] PCP - General Family Practice 07/03/21 Sofie Diana MD [address] [place] [address] Primary Staff Physician Cardiology 07/03/21 Verito Whelan MD [address] [place] [address] Referring Pulmonary Disease 10/04/21 Nina Grigsby MD [address] [facility] [place] [address] Physician Hematology/Oncology 10/25/21 Patricia Miller, PLANOGRAPH OPERATOR.SOLAR PANEL TECHNICIAN [address] [facility] [place] [address] Nurse Practitioner Hematology/Oncology 10/25/21 Denita Rai, KERRY [address] [facility] [place] [address] Specialty Automatic Lathe Operator Hematology/Oncology 10/25/21 Chain Tender Relationship Specialty Start Date End Date Christina Azul MD [address] [place] [address] PCP - General Family Practice 07/03/21 Sofie Diana MD [address] [place] [address] Primary Staff Physician Cardiology 07/03/21 Verito Whelan MD [address] [place] [address] Referring Pulmonary Disease 10/04/21 iNna Grigsby MD [address] [facility] [place] [address] Physician Hematology/Oncology 10/25/21 Patricia Miller, OZZIE.SOLAR PANEL TECHNICIAN [address] [facility] [place] [address] Nurse Practitioner Hematology/Oncology 10/25/21 Denita Rai, KERRY [address] [facility] [place] [address] Specialty Automatic Lathe Operator Hematology/Oncology 10/25/21 Chain Tender Relationship Specialty Start Date End Date Christina Azul MD [address] [place] [address] PCP - General Family Medicine 07/03/21 Sofie Diana MD [address] [place] [address] Primary Staff Physician Cardiology 07/03/21 Verito Whelan MD [address] [place] [address] Referring Pulmonary Disease 10/04/21 Nina Grigsby MD [address] [place] [address] [place] [address] Physician Hematology/Oncology 10/25/21 Patricia Miller, PLANOGRAPH OPERATOR.SOLAR PANEL TECHNICIAN [address] [facility] [place] [address] Nurse Practitioner Hematology/Oncology 10/25/21 Denita Rai, KERRY [address] [place] [address] [place] [address] Specialty Automatic Lathe Operator Hematology/Oncology 10/25/21 Chain Tender Relationship Specialty Start Date End Date Christina Azul MD [address] [place] [address] PCP - General Family Medicine 07/03/21 Sofie Diana MD [address] [place] [address] Primary Staff Physician Cardiology 07/03/21 Verito Whelan MD [address] [place] [address] Referring Pulmonary Disease 10/04/21 Nina Grigsby MD [address] [facility] [place] [address] Physician Hematology/Oncology 10/25/21 Patricia Miller, PLANOGRAPH OPERATOR.SOLAR PANEL TECHNICIAN [address] [facility] [place] [address] Nurse Practitioner Hematology/Oncology 10/25/21 Denita Rai, KERRY [address] [place] [address] [place] [address] Specialty Automatic Lathe Operator Hematology/Oncology 10/25/21 Chain Tender Relationship Specialty Start Date End Date Christina Azul MD [address] [place] [address] PCP - General Family Medicine 07/03/21 Sofie Diana MD [address] [place] [address] Primary Staff Physician Cardiology 07/03/21 Verito Whelan MD [address] [place], [place] [id number] Referring Pulmonary Disease 10/04/21 Nina Grigsby MD [address] [facility] [place] [address] Physician Hematology/Oncology 10/25/21 Patricia Miller, PLANOGRAPH OPERATOR.SOLAR PANEL TECHNICIAN [address] [facility] [place] [address] Nurse Practitioner Hematology/Oncology 10/25/21 Denita Rai, RN [address] [facility] [place] [address] Specialty Automatic Lathe Operator Hematology/Oncology 10/25/21 Chain Tender Relationship Specialty Start Date End Date Christina Azul MD [address] [place] [id number] PCP - General Family Medicine 07/03/21 Sofie Diana MD [address] [place] [address] Primary Staff Physician Cardiology 07/03/21 Verito Whelan MD [address] [place] [address] Referring Pulmonary Disease 10/04/21 Nina Grigsby MD [address] [facility] [place] [address] Physician Hematology/Oncology 10/25/21 Patricia Miller, PLANOGRAPH OPERATOR.[address] [place] [address] Nurse Practitioner Hematology/Oncology 10/25/21 Denita Rai, KERRY [address] [place] [address] [place] [address] Specialty Automatic Lathe Operator Hematology/Oncology 10/25/21 Chain Tender Relationship Specialty Start Date End Date Christina Azul MD [address] [place] [address] PCP - General Family Medicine 07/03/21 Sofie Diana MD [address] [place] [address] Primary Staff Physician Cardiology 07/03/21 Verito Whelan MD [address] [place] [address] Referring Pulmonary Disease 10/04/21 Nina Grigsby MD [address] [facility] [place] [address] Physician Hematology/Oncology 10/25/21 Patricia Miller, PLANOGRAPH OPERATOR.SOLAR PANEL TECHNICIAN [address] [place] [address] [place] [address] Nurse Practitioner Hematology/Oncology 10/25/21 Denita Rai, KERRY [address] [facility] [place] [address] Specialty Automatic Lathe Operator Hematology/Oncology 10/25/21 Chain Tender Relationship Specialty Start Date End Date Christina Azul MD [address] [place] [address] PCP - General Family Medicine 07/03/21 Sofie Diana MD [address] [place] [address] Primary Staff Physician Cardiology 07/03/21 Verito Whelan MD [address] [place] [address] Referring Pulmonary Disease 10/04/21 Nina Grigsby MD [address] [facility] [place] [address] Physician Hematology/Oncology 10/25/21 Patricia Miller, PLANOGRAPH OPERATOR.[facility] [address] [facility] [place] [address] Nurse Practitioner Hematology/Oncology 10/25/21 Denita Rai, RN [address] [facility] [place] [address] Specialty Automatic Lathe Operator Hematology/Oncology 10/25/21 Chain Tender Relationship Specialty Start Date End Date Christina Azul MD [address] [place] [id number] PCP - General Family Medicine 07/03/21 Sofie Diana MD [address] [place] [address] Primary Staff Physician Cardiology 07/03/21 Verito Whelan MD [address] [place] [address] Referring Pulmonary Disease 10/04/21 Nina Grigsby MD [address] [facility] [place] [address] Physician Hematology/Oncology 10/25/21 Patricia Miller, PLANOGRAPH OPERATOR.SOLAR PANEL TECHNICIAN [address] [facility] [place] [address] Nurse Practitioner Hematology/Oncology 10/25/21 Denita Rai, RN [address] [facility] [place] [address] Specialty Automatic Lathe Operator Hematology/Oncology 10/25/21 Chain Tender Relationship Specialty Start Date End Date Christina Azul MD [address] [place] [address] PCP - General Family Medicine 07/03/21 Sofie Diana MD [address] [place] [address] Primary Staff Physician Cardiology 07/03/21 Verito Whelan MD [address] [place] [address] Referring Pulmonary Disease 10/04/21 Nina Grigsby MD [address] [facility] [place] [address] Physician Hematology/Oncology 10/25/21 Patricia Miller, PLANOGRAPH OPERATOR.SOLAR PANEL TECHNICIAN [address] [facility] [place] [address] Nurse Practitioner Hematology/Oncology 10/25/21 Denita Rai, KERRY [address] [facility] [place] [address] Specialty Automatic Lathe Operator Hematology/Oncology 10/25/21 Chain Tender Relationship Specialty Start Date End Date Christina Azul MD [address] [place] [address] PCP - General Family Medicine 07/03/21 Sofie Diana MD [address] [place] [address] Primary Staff Physician Cardiology 07/03/21 Verito Whelan MD [address] [place] [address] Referring Pulmonary Disease 10/04/21 Nina Grigsby MD [address] [facility] [place] [address] Physician Hematology/Oncology 10/25/21 Patricia Miller, PLANOGRAPH OPERATOR.SOLAR PANEL TECHNICIAN [address] [facility] [place] [address] Nurse Practitioner Hematology/Oncology 10/25/21 Denita Rai, RN [address] [facility] [place] [address] Specialty Automatic Lathe Operator Hematology/Oncology 10/25/21 Chain Tender Relationship Specialty Start Date End Date Christina Azul MD [address] [place] [address] PCP - General Family Medicine 07/03/21 Sofie Diana MD [address] [place] [address] Primary Staff Physician Cardiology 07/03/21 Verito Whelan MD [address] [place] [address] Referring Pulmonary Disease 10/04/21 Nina Grigsby MD [address] [facility] [place] [address] Physician Hematology/Oncology 10/25/21 Patricia Miller, PLANOGRAPH OPERATOR.SOLAR PANEL TECHNICIAN [address] [facility] [place] [address] Nurse Practitioner Hematology/Oncology 10/25/21 Denita Rai, KERRY [address] [facility] [place] [address] Specialty Automatic Lathe Operator Hematology/Oncology 10/25/21 Chain Tender Relationship Specialty Start Date End Date Christina Azul MD [address] [place] [address] PCP - General Family Medicine 07/03/21 Sofie Diana MD [address] [place] [address] Primary Staff Physician Cardiology 07/03/21 Verito Whelan MD [address] [place] [address] Referring Pulmonary Disease 10/04/21 Nina Grigsby MD [address] [facility] [place] [address] Physician Hematology/Oncology 10/25/21 Patricia Miller APRN.SOLAR PANEL TECHNICIAN [address] [facility] [place] [address] Nurse Practitioner Hematology/Oncology 10/25/21 Denita Rai, KERRY [address] [facility] [place] [address] Specialty Automatic Lathe Operator Hematology/Oncology 10/25/21 Chain Tender Relationship Specialty Start Date End Date Christina Azul MD [address] [place] [address] PCP - General Family Medicine 07/03/21 Sofie Diana MD [address] [place] [address] Primary Staff Physician Cardiology 07/03/21 Verito Whelan MD [address] [place] [address] Referring Pulmonary Disease 10/04/21 Nina Grigsby MD [address] [facility] [place] [address] Physician Hematology/Oncology 10/25/21 Patricia Miller, PLANOGRAPH OPERATOR.SOLAR PANEL TECHNICIAN [address] [facility] [place] [address] Nurse Practitioner Hematology/Oncology 10/25/21 Denita Rai, KERRY [address] [place] [address] [place] [address] Specialty Automatic Lathe Operator Hematology/Oncology 10/25/21 Chain Tender Relationship Specialty Start Date End Date Christina Azul MD [address] [place] [address] PCP - General Family Medicine 07/03/21 Sofie Diana MD [address] [place] [address] Primary Staff Physician Cardiology 07/03/21 Verito Whelan MD [address] [place] [address] Referring Pulmonary Disease 10/04/21 Nina Grigsby MD [address] [facility] [place] [address] Physician Hematology/Oncology 10/25/21 Patricia Miller, PLANOGRAPH OPERATOR.SOLAR PANEL TECHNICIAN [address] [facility] [place] [address] Nurse Practitioner Hematology/Oncology 10/25/21 Denita Rai, KERRY [address] [facility] [place] [address] Specialty Automatic Lathe Operator Hematology/Oncology 10/25/21 Chain Tender Relationship Specialty Start Date End Date Christina Azul MD [address] [place], [place] [id number] PCP - General Family Medicine 07/03/21 Sofie Diana MD [address] [place] [address] Primary Staff Physician Cardiology 07/03/21 Verito Whelan MD [address] [place] [address] Referring Pulmonary Disease 10/04/21 Nina Grigsby MD [address] [place] [address] [place] [address] Physician Hematology/Oncology 10/25/21 Patricia Miller, PLANOGRAPH OPERATOR.SOLAR PANEL TECHNICIAN [address] [facility] [place] [address] Nurse Practitioner Hematology/Oncology 10/25/21 Denita Rai, RN [address] [facility] [place] [address] Specialty Automatic Lathe Operator Hematology/Oncology 10/25/21 Chain Tender Relationship Specialty Start Date End Date Christina Azul MD [address] [place] [id number] PCP - General Family Medicine 07/03/21 Sofie Diana MD [address] [place] [address] Primary Staff Physician Cardiology 07/03/21 Verito Whelan MD [address] [place] [address] Referring Pulmonary Disease 10/04/21 Nina Grigsby MD [address] [facility] [place] [address] Physician Hematology/Oncology 10/25/21 Patricia Miller, PLANOGRAPH OPERATOR.[address] [place] [address] Nurse Practitioner Hematology/Oncology 10/25/21 Denita Rai, KERRY [address] [place] [address] [place] [address] Specialty Automatic Lathe Operator Hematology/Oncology 10/25/21 Chain Tender Relationship Specialty Start Date End Date Christina Azul MD [address] [place] [address] PCP - General Family Medicine 07/03/21 Sofie Diana MD [address] [place] [address] Primary Staff Physician Cardiology 07/03/21 Verito Whelan MD [address] [place] [address] Referring Pulmonary Disease 10/04/21 Nina Grigsby MD [address] [place] [address] [place] [address] Physician Hematology/Oncology 10/25/21 Patricia Miller, PLANOGRAPH OPERATOR.[address] [place] [address] Nurse Practitioner Hematology/Oncology 10/25/21 Denita Rai, KERRY [address] [place] [address] [place] [address] Specialty Automatic Lathe Operator Hematology/Oncology 10/25/21 Chain Tender Relationship Specialty Start Date End Date Christina Azul MD [address] [place] [address] PCP - General Family Medicine 07/03/21 Sofie Diana MD [address] [place], [place] 6009395 Primary Staff Physician Cardiology 07/03/21 Verito Whelan MD [address] [place], [place] [address]656695 Referring Pulmonary Disease 10/04/21 Nina Grigsby MD [address] [facility] [place] [address] Physician Hematology/Oncology 10/25/21 Patricia Miller, PLANOGRAPH OPERATOR.SOLAR PANEL TECHNICIAN [address] [facility] [place] [address] Nurse Practitioner Hematology/Oncology 10/25/21 Denita Rai, KERRY [address] [facility] [place] [address] Specialty Automatic Lathe Operator Hematology/Oncology 10/25/21 Chain Tender Relationship Specialty Start Date End Date Christina Azul MD [address] [place] [address] PCP - General Family Medicine 07/03/21 Sofie Diana MD [address] [place] [address] Primary Staff Physician Cardiology 07/03/21 Verito Whelan MD [address] [place] [address] Referring Pulmonary Disease 10/04/21 Nina Grigsby MD [address] [facility] [place] [address] Physician Hematology/Oncology 10/25/21 Patricia Miller, PLANOGRAPH OPERATOR.SOLAR PANEL TECHNICIAN [address] [place] [address] [place] [address] Nurse Practitioner Hematology/Oncology 10/25/21 Denita Rai, RN [address] [facility] [place] [address] Specialty Automatic Lathe Operator Hematology/Oncology 10/25/21 Chain Tender Relationship Specialty Start Date End Date Christina Azul MD [address] [place] [phone] PCP - General Family Medicine 07/03/21 Sofie Diana MD [address] [place], [place] 4563595 Primary Staff Physician Cardiology 07/03/21 Verito Whelan MD [address] [place] [address] Referring Pulmonary Disease 10/04/21 Nina Grigsby MD [address] [facility] [place] [address] Physician Hematology/Oncology 10/25/21 Patricia Miller, PLANOGRAPH OPERATOR.[facility] [address] [facility] [place] [address] Nurse Practitioner Hematology/Oncology 10/25/21 Denita Rai, RN [address] [facility] [place] [address] Specialty Automatic Lathe Operator Hematology/Oncology 10/25/21 Chain Tender Relationship Specialty Start Date End Date Christina Azul MD [address] [place] [id number] PCP - General Family Medicine 07/03/21 Sofie Diana MD [address] [place] [address] Primary Staff Physician Cardiology 07/03/21 Verito Whelan MD [address] [place] [address] Referring Pulmonary Disease 10/04/21 Nina Grigsby MD [address] [facility] [place] [address] Physician Hematology/Oncology 10/25/21 Patricia Miller, PLANOGRAPH OPERATOR.SOLAR PANEL TECHNICIAN [address] [facility] [place] [address] Nurse Practitioner Hematology/Oncology 10/25/21 Denita Rai, KERRY [address] [place] [address] [place] [address] Specialty Automatic Lathe Operator Hematology/Oncology 10/25/21 Chain Tender Relationship Specialty Start Date End Date Christina Azul MD [address] [place] [address] PCP - General Family Medicine 07/03/21 Sofie Diana MD [address] [place] [address] Primary Staff Physician Cardiology 07/03/21 Verito Whelan MD [address] [place] [address] Referring Pulmonary Disease 10/04/21 Nina Grigsby MD [address] [facility] [place] [address] Physician Hematology/Oncology 10/25/21 Patricia Miller, PLANOGRAPH OPERATOR.SOLAR PANEL TECHNICIAN [address] [facility] [place] [address] Nurse Practitioner Hematology/Oncology 10/25/21 Denita Rai, KERRY [address] [facility] [place] [address] Specialty Automatic Lathe Operator Hematology/Oncology 10/25/21 Chain Tender Relationship Specialty Start Date End Date Christina Azul MD [address] [place] [address] PCP - General Family Medicine 07/03/21 Sofie Diana MD [address] [place] [address] Primary Staff Physician Cardiology 07/03/21 Verito Whelan MD [address] [place], [place] 4163295 Referring Pulmonary Disease 10/04/21 Nina Grigsby MD [address] [facility] [place] [address] Physician Hematology/Oncology 10/25/21 Patricia Miller, PLANOGRAPH OPERATOR.SOLAR PANEL TECHNICIAN [address] [facility] [place] [address] Nurse Practitioner Hematology/Oncology 10/25/21 Denita Rai, KERRY [address] [facility] [place] [address] Specialty Automatic Lathe Operator Hematology/Oncology 10/25/21 Chain Tender Relationship Specialty Start Date End Date Christina Azul MD [address] [place] [address] PCP - General Family Medicine 07/03/21 Sofie Diana MD [address] [place] [address] Primary Staff Physician Cardiology 07/03/21 Verito Whelan MD [address] [place] [address] Referring Pulmonary Disease 10/04/21 Nina Grigsby MD [address] [facility] [place] [address] Physician Hematology/Oncology 10/25/21 Patricia Miller, PLANOGRAPH OPERATOR.SOLAR PANEL TECHNICIAN [address] [facility] [place] [address] Nurse Practitioner Hematology/Oncology 10/25/21 Denita Rai, RN [address] [facility] [place] [address] Specialty Automatic Lathe Operator Hematology/Oncology 10/25/21 Chain Tender Relationship Specialty Start Date End Date Christina Azul MD [address] [place] [address] PCP - General Family Medicine 07/03/21 Sofie Diana MD [address] [place] [address] Primary Staff Physician Cardiology 07/03/21 Verito Whelan MD [address] [place] [address] Referring Pulmonary Disease 10/04/21 Nina Grigsby MD [address] [facility] [place] [address] Physician Hematology/Oncology 10/25/21 Patricia Miller, PLANOGRAPH OPERATOR.SOLAR PANEL TECHNICIAN [address] [facility] [place] [address] Nurse Practitioner Hematology/Oncology 10/25/21 Denita Rai, RN [address] [facility] [place] [address] Specialty Automatic Lathe Operator Hematology/Oncology 10/25/21 Chain Tender Relationship Specialty Start Date End Date Christina Azul MD [address] [place] [address] PCP - General Family Medicine 07/03/21 Sofie Diana MD [address] [place] [address] Primary Staff Physician Cardiology 07/03/21 Verito Whelan MD [address] [place] [address] Referring Pulmonary Disease 10/04/21 Nina Grigsby MD [address] [facility] [place] [address] Physician Hematology/Oncology 10/25/21 Patricia Miller APRN.SOLAR PANEL TECHNICIAN [address] [facility] [place] [address] Nurse Practitioner Hematology/Oncology 10/25/21 Denita Rai, KERRY [address] [facility] [place] [address] Specialty Automatic Lathe Operator Hematology/Oncology 10/25/21 Chain Tender Relationship Specialty Start Date End Date Christina Azul MD [address] [place] [phone] PCP - General Family Medicine 07/03/21 Sofie Diana MD [address] [place] [address] Primary Staff Physician Cardiology 07/03/21 Verito Whelan MD [address] [place] [address] Referring Pulmonary Disease 10/04/21 Nina Grigsby MD [address] [facility] [place] [address] Physician Hematology/Oncology 10/25/21 Patricia Miller, PLANOGRAPH OPERATOR.[facility] [address] [facility] [place] [address] Nurse Practitioner Hematology/Oncology 10/25/21 Denita Rai, RN [address] [place] [address] [place] [address] Specialty Automatic Lathe Operator Hematology/Oncology 10/25/21 Chain Tender Relationship Specialty Start Date End Date Christina Azul MD [address] [place] [address] PCP - General Family Medicine 07/03/21 Sofie Diana MD [address] [place] [address] Primary Staff Physician Cardiology 07/03/21 Verito Whelan MD [address] [place] [address] Referring Pulmonary Disease 10/04/21 Nina Grigsby MD [address] [facility] [place] [address] Physician Hematology/Oncology 10/25/21 Patricia Miller, PLANOGRAPH OPERATOR.[facility] [address] [facility] [place] [address] Nurse Practitioner Hematology/Oncology 10/25/21 Denita Rai, KERRY [address] [place] [address] [place] [address] Specialty Automatic Lathe Operator Hematology/Oncology 10/25/21 Team Status: Active Member Role Status Dates Christina Azul MD Primary Care Provider Active Team Status: Inactive Member Role Status Dates Christina Azul MD Primary Care Provider Active Sapna Angulo APRN Emergency Provider Active Chain Tender Relationship Specialty Start Date End Date Christina Azul MD [address] [place] [address] PCP - General Family Medicine 07/03/21 Sofie Diana MD [address] [place] [address] Primary Staff Physician Cardiology 07/03/21 Verito Whelan MD [address] [place] [address] Referring Pulmonary Disease 10/04/21 Nina Grigsby MD [address] [facility] [place] [address] Physician Hematology/Oncology 10/25/21 Patricia Miller APRN.SOLAR PANEL TECHNICIAN [address] [facility] [place] [address] Nurse Practitioner Hematology/Oncology 10/25/21 Denita Rai, RN [address] [facility] [place] [address] Specialty Automatic Lathe Operator Hematology/Oncology 10/25/21 Chain Tender Relationship Specialty Start Date End Date Christina Azul MD [address] [place] [id number] PCP - General Family Medicine 07/03/21 Sofie Diana MD [address] [place] [address] Primary Staff Physician Cardiology 07/03/21 Verito Whelan MD [address] [place] [address] Referring Pulmonary Disease 10/04/21 Nina Grigsby MD [address] [facility] [place] [address] Physician Hematology/Oncology 10/25/21 Patricia Miller, PLANOGRAPH OPERATOR.SOLAR PANEL TECHNICIAN [address] [facility] [place] [address] Nurse Practitioner Hematology/Oncology 10/25/21 Denita Rai, KERRY [address] [facility] [place] [address] Specialty Automatic Lathe Operator Hematology/Oncology 10/25/21 Minna Madrigal LSW Switch Engineer 01/08/23 Chain Tender Relationship Specialty Start Date End Date Christina Azul MD [address] [place] [address] PCP - General Family Medicine 07/03/21 Sofie Diana MD [address] [place], [place] [id number] Primary Staff Physician Cardiology 07/03/21 Verito Whelan MD [address] [place] [address] Referring Pulmonary Disease 10/04/21 Nina Grigsby MD [address] [facility] [place] [address] Physician Hematology/Oncology 10/25/21 Patricia Miller, PLANOGRAPH OPERATOR.SOLAR PANEL TECHNICIAN [address] [facility] [place] [address] Nurse Practitioner Hematology/Oncology 10/25/21 Denita Rai, KERRY [address] [facility] [place] [address] Specialty Automatic Lathe Operator Hematology/Oncology 10/25/21 Minna Madrigal, MARGARET Switch Engineer 01/08/23 Chain Tender Relationship Specialty Start Date End Date Christina Azul MD [address] [place] [address] PCP - General Family Medicine 07/03/21 Sofie Diana MD [address] [place] [address] Primary Staff Physician Cardiology 07/03/21 Verito Whelan MD [address] [place], [place] [id number] Referring Pulmonary Disease 10/04/21 Nina Grigsby MD [address] [place] [address] [place] [address] Physician Hematology/Oncology 10/25/21 Patricia Miller, OZZIE.SOLAR PANEL TECHNICIAN [address] [facility] [place] [address] Nurse Practitioner Hematology/Oncology 10/25/21 Denita Rai, RN [address] [facility] [place] [address] Specialty Automatic Lathe Operator Hematology/Oncology 10/25/21 Minna Madrigal LSW Switch Engineer 01/08/23 Chain Tender Relationship Specialty Start Date End Date Christina Azul MD [address] [place] [id number] PCP - General Family Medicine 07/03/21 Sofie Diana MD [address] [place] [address] Primary Staff Physician Cardiology 07/03/21 Verito Whelan MD [address] [place] [address] Referring Pulmonary Disease 10/04/21 Nina Grigsby MD [address] [facility] [place] [address] Physician Hematology/Oncology 10/25/21 Patricia Miller, PLANOGRAPH OPERATOR.SOLAR PANEL TECHNICIAN [address] [facility] [place] [address] Nurse Practitioner Hematology/Oncology 10/25/21 Denita Rai, KERRY [address] [facility] [place] [address] Specialty Automatic Lathe Operator Hematology/Oncology 10/25/21 Minna Madrigal LSW Switch Engineer 01/08/23 Chain Tender Relationship Specialty Start Date End Date Christina Azul MD [address] [place] [address] PCP - General Family Medicine 07/03/21 Sofie Diana MD [address] [place], [place] [id number] Primary Staff Physician Cardiology 07/03/21 Verito Whelan MD [address] [place], [place] [id number] Referring Pulmonary Disease 10/04/21 Nina Grigsby MD [address] [place] [address] [place] [address] Physician Hematology/Oncology 10/25/21 Patricia Miller, PLANOGRAPH OPERATOR.SOLAR PANEL TECHNICIAN [address] [facility] [place] [address] Nurse Practitioner Hematology/Oncology 10/25/21 Denita Rai, RN [address] [facility] [place] [address] Specialty Automatic Lathe Operator Hematology/Oncology 10/25/21 Minna Madrigal LSW Switch Engineer 01/08/23 Chain Tender Relationship Specialty Start Date End Date Christina Azul MD [address] [place] [address] PCP - General Family Medicine 07/03/21 Sofie Diana MD [address] [place] [address] Primary Staff Physician Cardiology 07/03/21 Verito Whelan MD [address] [place], [place] [phone] Referring Pulmonary Disease 10/04/21 Nina Grigsby MD [address] [facility] [place] [address] Physician Hematology/Oncology 10/25/21 Patricia Miller APRN.SOLAR PANEL TECHNICIAN [address] [place] [address] [place] [address] Nurse Practitioner Hematology/Oncology 10/25/21 Denita Rai, RN [address] [facility] [place] [address] Specialty Automatic Lathe Operator Hematology/Oncology 10/25/21 Minna Madrigal LSW Switch Engineer 01/08/23 Chain Tender Relationship Specialty Start Date End Date Christina zAul MD [address] [place] [address] PCP - General Family Medicine 07/03/21 Sofie Diana MD [address] [place] [address] Primary Staff Physician Cardiology 07/03/21 Verito Whelan MD [address] [place] [address] Referring Pulmonary Disease 10/04/21 Nina Grigsby MD [address] [place] [address] [place] [address] Physician Hematology/Oncology 10/25/21 Patricia Miller, PLANOGRAPH OPERATOR.SOLAR PANEL TECHNICIAN [address] [facility] [place] [address] Nurse Practitioner Hematology/Oncology 10/25/21 Denita Rai, KERRY [address] [place] [address] [place] [address] Specialty Automatic Lathe Operator Hematology/Oncology 10/25/21 Minna Madrigal LSW Switch Engineer 01/08/23 Chain Tender Relationship Specialty Start Date End Date Christina Azul MD [address] [place] [address] PCP - General Family Medicine 07/03/21 Sofie Diana MD [address] [place] [address] Primary Staff Physician Cardiology 07/03/21 Verito Whelan MD [address] [place] [address] Referring Pulmonary Disease 10/04/21 Nina Grigsby MD [address] [place] [address] [place] [address] Physician Hematology/Oncology 10/25/21 Patricia Miller, PLANOGRAPH OPERATOR.SOLAR PANEL TECHNICIAN [address] [facility] [address] [place] [id number] Nurse Practitioner Hematology/Oncology 10/25/21 Denita Rai, KERRY [address] [place] [address] [place] [address] Specialty Automatic Lathe Operator Hematology/Oncology 10/25/21 Minna Madrigal LSW Switch Engineer 01/08/23 Chain Tender Relationship Specialty Start Date End Date Christina Azul MD [address] [place] [id number] PCP - General Family Medicine 07/03/21 Sofie Diana MD [address] [place] [phone] Primary Staff Physician Cardiology 07/03/21 Verito Whelan MD [address] [place] [phone] Referring Pulmonary Disease 10/04/21 Nina Grigsby MD [address] [place] [address] [place] [address] Physician Hematology/Oncology 10/25/21 Patricia Miller, PLANOGRAPH OPERATOR.SOLAR PANEL TECHNICIAN [address] [place] [address] [place] [address] Nurse Practitioner Hematology/Oncology 10/25/21 Denita Rai, KERRY [address] [facility] [place] [address] Specialty Automatic Lathe Operator Hematology/Oncology 10/25/21 Minna Madrigal LSW Switch Engineer 01/08/23 Chain Tender Relationship Specialty Start Date End Date Christina Azul MD [address] [place] [address] PCP - General Family Medicine 07/03/21 Sofie Diana MD [address] [place] [phone] Primary Staff Physician Cardiology 07/03/21 Verito Whelan MD [address] [place] [phone] Referring Pulmonary Disease 10/04/21 Nina Grigsby MD [address] [facility] [place] [address] Physician Hematology/Oncology 10/25/21 Patricia Miller APRN.SOLAR PANEL TECHNICIAN [address] [facility] [place] [address] Nurse Practitioner Hematology/Oncology 10/25/21 Denita Rai, KERRY [address] [facility] [place] [address] Specialty Automatic Lathe Operator Hematology/Oncology 10/25/21 Minna Madrigal LSW Switch Engineer 01/08/23 Chain Tender Relationship Specialty Start Date End Date Christina Azul MD [address] [place] [phone] PCP - General Family Medicine 07/03/21 Sofie Diana MD [address] [place] [address] Primary Staff Physician Cardiology 07/03/21 Verito Whelan MD [address] [place] [phone] Referring Pulmonary Disease 10/04/21 Nina Grigsby MD [address] [facility] [place] [address] Physician Hematology/Oncology 10/25/21 Patricia Miller, PLANOGRAPH OPERATOR.SOLAR PANEL TECHNICIAN [address] [facility] [place] [address] Nurse Practitioner Hematology/Oncology 10/25/21 Denita Rai, KERRY [address] [facility] [place] [address] Specialty Automatic Lathe Operator Hematology/Oncology 10/25/21 Minna Madrigal LSW Switch Engineer 01/08/23 Chain Tender Relationship Specialty Start Date End Date Christina Azul MD [address] [place] [address] PCP - General Family Medicine 07/03/21 Sofie Diana MD [address] [place] [phone] Primary Staff Physician Cardiology 07/03/21 Verito Whelan MD [address] [place] [phone] Referring Pulmonary Disease 10/04/21 Nina Grigsby MD [address] [facility] [place] [address] Physician Hematology/Oncology 10/25/21 Patricia Miller, PLANOGRAPH OPERATOR.SOLAR PANEL TECHNICIAN [address] [facility] [place] [address] Nurse Practitioner Hematology/Oncology 10/25/21 Denita Rai, KERRY [address] [facility] [place] [address] Specialty Automatic Lathe Operator Hematology/Oncology 10/25/21 Minna Madrigal LSW Switch Engineer 01/08/23 Chain Tender Relationship Specialty Start Date End Date Christina Azul MD [address] [place] [address] PCP - General Family Medicine 07/03/21 Sofie Diana MD [address] [place], [place] [phone] Primary Staff Physician Cardiology 07/03/21 Verito Whelan MD [address] [place], [place] [phone] Referring Pulmonary Disease 10/04/21 Nina Grigsby MD [address] [facility] [place] [address] Physician Hematology/Oncology 10/25/21 Patricia Miller APRN.SOLAR PANEL TECHNICIAN [address] [place] [address] [place] [address] Nurse Practitioner Hematology/Oncology 10/25/21 Denita Rai, KERRY [address] [facility] [place] [address] Specialty Automatic Lathe Operator Hematology/Oncology 10/25/21 Minna Madrigal LSW Switch Engineer 01/08/23 Chain Tender Relationship Specialty Start Date End Date Christina Azul MD [address] [place] [address] PCP - General Family Medicine 07/03/21 Sofie Diana MD [address] [place], [place] 9499195 Primary Staff Physician Cardiology 07/03/21 Verito Whelan MD [address] [place], [place] 4204595 Referring Pulmonary Disease 10/04/21 Nina Grigsby MD [address] [place] [address] [place] [address] Physician Hematology/Oncology 10/25/21 Patricia Miller APRN.SOLAR PANEL TECHNICIAN [address] [place] [address] [place] [address] Nurse Practitioner Hematology/Oncology 10/25/21 Denita Rai, KERRY [address] [place] [address] [place] [address] Specialty Automatic Lathe Operator Hematology/Oncology 10/25/21 Minna Madrigal LSW Switch Engineer 01/08/23 Chain Tender Relationship Specialty Start Date End Date Christina Azul MD [address] [place] [address] PCP - General Family Medicine 07/03/21 Sofie Diana MD [address] [place] [address] Primary Staff Physician Cardiology 07/03/21 Verito Whelan MD [address] [place], [place] 5613395 Referring Pulmonary Disease 10/04/21 Nina Grigsby MD [address] [place] [address] [place] [address] Physician Hematology/Oncology 10/25/21 Patricia Miller, PLANOGRAPH OPERATOR.SOLAR PANEL TECHNICIAN [address] [facility] [place] [address] Nurse Practitioner Hematology/Oncology 10/25/21 Denita Rai, RN [address] [facility] [place] [address] Specialty Automatic Lathe Operator Hematology/Oncology 10/25/21 Minna Madrigal LSW Switch Engineer 01/08/23 Chain Tender Relationship Specialty Start Date End Date Christina Azul MD [address] [place] [address] PCP - General Family Medicine 07/03/21 Sofie Diana MD [address] [place], [place] 9162995 Primary Staff Physician Cardiology 07/03/21 Verito Whelan MD [address] [place] [address] Referring Pulmonary Disease 10/04/21 Nina Grigsby MD [address] [place] [address] [place] [address] Physician Hematology/Oncology 10/25/21 Patricia Miller, PLANOGRAPH OPERATOR.SOLAR PANEL TECHNICIAN [address] [facility] [place] [address] Nurse Practitioner Hematology/Oncology 10/25/21 Denita Rai, KERRY [address] [facility] [place] [address] Specialty Automatic Lathe Operator Hematology/Oncology 10/25/21 Minna Madrigal LSW Switch Engineer 01/08/23 Chain Tender Relationship Specialty Start Date End Date Christina Azul MD [address] [place] [address] PCP - General Family Medicine 07/03/21 Sofie Diana MD [address] [place] [address] Primary Staff Physician Cardiology 07/03/21 Verito Whelan MD [address] [place], [place] [phone] Referring Pulmonary Disease 10/04/21 Nina Grigsby MD [address] [place] [address] [address] [place] [phone] Physician Hematology/Oncology 10/25/21 Patricia Miller APRN.SOLAR PANEL TECHNICIAN [address] [place] [address] [place] [address] Nurse Practitioner Hematology/Oncology 10/25/21 Denita Rai, KERRY [address] [facility] [place] [address] Specialty Automatic Lathe Operator Hematology/Oncology 10/25/21 Minna Madrigal LSW Switch Engineer 01/08/23 Chain Tender Relationship Specialty Start Date End Date Christina Azul MD [address] [place] [address] PCP - General Family Medicine 07/03/21 Sofie Diana MD [address] [place], [place] 0686395 Primary Staff Physician Cardiology 07/03/21 Verito Whelan MD [address] [place] [address] Referring Pulmonary Disease 10/04/21 Nina Grigsby MD [address] [facility] [place] [address] Physician Hematology/Oncology 10/25/21 Patricia Miller APRN.SOLAR PANEL TECHNICIAN [address] [facility] [place] [address] Nurse Practitioner Hematology/Oncology 10/25/21 Denita Rai, KERRY [address] [facility] [place] [address] Specialty Automatic Lathe Operator Hematology/Oncology 10/25/21 Minna Madrigal LSW Switch Engineer 01/08/23 Chain Tender Relationship Specialty Start Date End Date Christina Azul MD [address] [place] [address] PCP - General Family Medicine 07/03/21 Sofie Diana MD [address] [facility] [place] [phone] Primary Staff Physician Cardiology 07/03/21 Verito Whelan MD [address] [place], [place] 6362395 Referring Pulmonary Disease 10/04/21 Nina Grigsby MD [address] [facility] [place] [address] Physician Hematology/Oncology 10/25/21 Patricia Miller, PLANOGRAPH OPERATOR.SOLAR PANEL TECHNICIAN [address] [facility] [place] [address] Nurse Practitioner Hematology/Oncology 10/25/21 Denita Rai, RN [address] [facility] [place] [address] Specialty Automatic Lathe Operator Hematology/Oncology 10/25/21 Minna Madrigal LSW Switch Engineer 01/08/23 Chain Tender Relationship Specialty Start Date End Date Christina Azul MD [address] [place] [address] PCP - General Family Medicine 07/03/21 Sofie Diana MD [address] [place], [place] [phone] Primary Staff Physician Cardiology 07/03/21 Verito Whelan MD [address] [place] [address] Referring Pulmonary Disease 10/04/21 Nina Grigsby MD [address] [facility] [place] [address] Physician Hematology/Oncology 10/25/21 Patricia Miller, PLANOGRAPH OPERATOR.SOLAR PANEL TECHNICIAN [address] [facility] [place] [address] Nurse Practitioner Hematology/Oncology 10/25/21 Denita Rai, KERRY [address] [facility] [place] [address] Specialty Automatic Lathe Operator Hematology/Oncology 10/25/21 Minna Madrigal LSW Switch Engineer 01/08/23 Chain Tender Relationship Specialty Start Date End Date Christina Azul MD [address] [place] [address] PCP - General Family Medicine 07/03/21 Sofie Diana MD [address] [place], [place] 8363295 Primary Staff Physician Cardiology 07/03/21 Verito Whelan MD [address] [place] [address] Referring Pulmonary Disease 10/04/21 Nina Grigsby MD [address] [place] [address] [place] [address] Physician Hematology/Oncology 10/25/21 Patricia Miller APRN.SOLAR PANEL TECHNICIAN [address] [place] [address] [place] [address] Nurse Practitioner Hematology/Oncology 10/25/21 Denita Rai, KERRY [address] [place] [address] [place] [address] Specialty Automatic Lathe Operator Hematology/Oncology 10/25/21 Minna Madrigal LSW Switch Engineer 01/08/23 Chain Tender Relationship Specialty Start Date End Date Christina Azul MD [address] [place] [address] PCP - General Family Medicine 07/03/21 Sofie Diana MD [address] [place] [address] Primary Staff Physician Cardiology 07/03/21 Verito Whelan MD [address] [place], [place] [phone] Referring Pulmonary Disease 10/04/21 Nina Grigsby MD [address] [place] [address] [place] [address] Physician Hematology/Oncology 10/25/21 Patricia Miller, PLANOGRAPH OPERATOR.SOLAR PANEL TECHNICIAN [address] [place] [address] [place] [address] Nurse Practitioner Hematology/Oncology 10/25/21 Denita Rai, KERRY [address] [place] [address] [place] [address] Specialty Automatic Lathe Operator Hematology/Oncology 10/25/21 Minna Madrigal LSW Switch Engineer 01/08/23 Chain Tender Relationship Specialty Start Date End Date Christina Azul MD [address] [place] [phone] PCP - General Family Medicine 07/03/21 Sofie Diana MD [address] [place] [address] Primary Staff Physician Cardiology 07/03/21 Verito Whelan MD [address] [place] [phone] Referring Pulmonary Disease 10/04/21 Nina Grigsby MD [address] [place] [address] [place] [address] Physician Hematology/Oncology 10/25/21 Patricia Miller, PLANOGRAPH OPERATOR.SOLAR PANEL TECHNICIAN [address] [place] [address] [place] [address] Nurse Practitioner Hematology/Oncology 10/25/21 Denita Rai, KERRY [address] [facility] [place] [address] Specialty Automatic Lathe Operator Hematology/Oncology 10/25/21 Minna Madrigal LSW Switch Engineer 01/08/23 Chain Tender Relationship Specialty Start Date End Date Christina Azul MD [address] [place] [phone] PCP - General Family Medicine 07/03/21 Sofie Diana MD [address] [place] 4486095 Primary Staff Physician Cardiology 07/03/21 Verito Whelan MD [address] [place] [phone] Referring Pulmonary Disease 10/04/21 Nina Grigsby MD [address] [place] [address] [place] [address] Physician Hematology/Oncology 10/25/21 Patricia Miller APRN.SOLAR PANEL TECHNICIAN [address] [place] [address] [place] [address] Nurse Practitioner Hematology/Oncology 10/25/21 Denita Rai, KERRY [address] [facility] [place] [address] Specialty Automatic Lathe Operator Hematology/Oncology 10/25/21 Minna Madrigal LSW Switch Engineer 01/08/23 Chain Tender Relationship Specialty Start Date End Date Christina Azul MD [address] [place] [phone] PCP - General Family Medicine 07/03/21 Sofie Diana MD [address] [place] [address] Primary Staff Physician Cardiology 07/03/21 Verito Whelan MD [address] [place] [phone] Referring Pulmonary Disease 10/04/21 Nina Grigsby MD [address] [facility] [place] [address] Physician Hematology/Oncology 10/25/21 Patricia Miller APRN.SOLAR PANEL TECHNICIAN [address] [facility] [place] [address] Nurse Practitioner Hematology/Oncology 10/25/21 Denita Rai, KERRY [address] [facility] [place] [address] Specialty Automatic Lathe Operator Hematology/Oncology 10/25/21 Minan Madrigal LSW Switch Engineer 01/08/23 Chain Tender Relationship Specialty Start Date End Date Christina Azul MD [address] [place] [address] PCP - General Family Medicine 07/03/21 Sofie Diana MD [address] [place] [address] Primary Staff Physician Cardiology 07/03/21 Verito Whelan MD [address] [place] [address] Referring Pulmonary Disease 10/04/21 Nina Grigsby MD [address] [facility] [place] [address] Physician Hematology/Oncology 10/25/21 aPtricia Miller, OZZIE.SOLAR PANEL TECHNICIAN [address] [facility] [place] [address] Nurse Practitioner Hematology/Oncology 10/25/21 Denita Rai, KERRY [address] [facility] [place] [address] Specialty Automatic Lathe Operator Hematology/Oncology 10/25/21 Minna Madrigal LSW Switch Engineer 01/08/23 Chain Tender Relationship Specialty Start Date End Date Christina Azul MD [address] [place] [address] PCP - General Family Medicine 07/03/21 Sofie Diana MD [address] [place], [place] 7005695 Primary Staff Physician Cardiology 07/03/21 Verito Whelan MD [address] [place] [address] Referring Pulmonary Disease 10/04/21 Nina Grigsby MD [address] [facility] [place] [address] Physician Hematology/Oncology 10/25/21 Patricia Miller, PLANOGRAPH OPERATOR.SOLAR PANEL TECHNICIAN [address] [facility] [place] [address] Nurse Practitioner Hematology/Oncology 10/25/21 Denita Rai, KERRY [address] [facility] [place] [address] Specialty Automatic Lathe Operator Hematology/Oncology 10/25/21 Minna Madrigal LSW Switch Engineer 01/08/23 Chain Tender Relationship Specialty Start Date End Date Christina Azul MD [address] [place] [address] PCP - General Family Medicine 07/03/21 Sofie Diana MD [address] [place] [address] Primary Staff Physician Cardiology 07/03/21 Verito Whelan MD [address] [place], [place] [phone] Referring Pulmonary Disease 10/04/21 Nina Grigsby MD [address] [place] [address] [place] [address] Physician Hematology/Oncology 10/25/21 Patricia Miller APRN.SOLAR PANEL TECHNICIAN [address] [place] [address] [place] [address] Nurse Practitioner Hematology/Oncology 10/25/21 Denita Rai, KERRY [address] [facility] [place] [address] Specialty Automatic Lathe Operator Hematology/Oncology 10/25/21 Chain Tender Relationship Specialty Start Date End Date Christina Azul MD [address] [place] [address] PCP - General Family Medicine 07/03/21 Sofie Diana MD [address] [place], [place] [phone] Primary Staff Physician Cardiology 07/03/21 Verito Whelan MD [address] [facility] [place] [phone] Referring Pulmonary Disease 10/04/21 Nina Grigsby MD [address] [place] [address] [place] [address] Physician Hematology/Oncology 10/25/21 Patricia Miller, PLANOGRAPH OPERATOR.SOLAR PANEL TECHNICIAN [address] [place] [address] [place] [address] Nurse Practitioner Hematology/Oncology 10/25/21 Denita Rai, KERRY [address] [place] [address] [place] [address] Specialty Automatic Lathe Operator Hematology/Oncology 10/25/21 Minna Madrigal LSW Switch Engineer 01/08/23 Estella Fish, PLANOGRAPH OPERATOR.SOLAR PANEL TECHNICIAN [address] [place] [address] [place] [address] HOSPICE & PALLIATIVE MEDICINE 05/22/23 Julieth Tapia RN Specialty Automatic Lathe Operator HOSPICE & PALLIATIVE MEDICINE 05/22/23 Chain Tender Relationship Specialty Start Date End Date Christina Azul MD [address] [place] [phone] PCP - General Family Medicine 07/03/21 Sofie Diana MD [address] [place] [address] Primary Staff Physician Cardiology 07/03/21 Verito Whelan MD [address] [place] [phone] Referring Pulmonary Disease 10/04/21 Nina Grigsby MD [address] [place] [address] [place] [address] Physician Hematology/Oncology 10/25/21 Patricia Miller, PLANOGRAPH OPERATOR.SOLAR PANEL TECHNICIAN [address] [place] [address] [place] [address] Nurse Practitioner Hematology/Oncology 10/25/21 Denita Rai, KERRY [address] [place] [address] [place] [address] Specialty Automatic Lathe Operator Hematology/Oncology 10/25/21 Minna Madrigal LSW Switch Engineer 01/08/23 Estella Fish, PLANOGRAPH OPERATOR.SOLAR PANEL TECHNICIAN [address] [place] [address] [place] [address] HOSPICE & PALLIATIVE MEDICINE 05/22/23 Julieth Tapia RN Specialty Automatic Lathe Operator HOSPICE & PALLIATIVE MEDICINE 05/22/23 Chain Tender Relationship Specialty Start Date End Date Christina Azul MD [address] [place] [address] PCP - General Family Medicine 07/03/21 Sofie Diana MD [address] [place], [place] [id number] Primary Staff Physician Cardiology 07/03/21 Verito Whelan MD [address] [place] [address] Referring Pulmonary Disease 10/04/21 Nina Grigsby MD [address] [place] [address] [place] [address] Physician Hematology/Oncology 10/25/21 Patricia Miller, PLANOGRAPH OPERATOR.SOLAR PANEL TECHNICIAN [address] [place] [address] [place] [address] Nurse Practitioner Hematology/Oncology 10/25/21 Denita Rai, KERRY [address] [place] [address] [place] [address] Specialty Automatic Lathe Operator Hematology/Oncology 10/25/21 Minna Madrigal LSW Switch Engineer 01/08/23 Estella Fish, PLANOGRAPH OPERATOR.SOLAR PANEL TECHNICIAN [address] [place] [address] [place] [address] HOSPICE & PALLIATIVE MEDICINE 05/22/23 Julieth Tapia RN Specialty Automatic Lathe Operator HOSPICE & PALLIATIVE MEDICINE 05/22/23 Chain Tender Relationship Specialty Start Date End Date Christina Azul MD [address] [place] [address] PCP - General Family Medicine 07/03/21 Sofie Diana MD [address] [place], [place] [id number] Primary Staff Physician Cardiology 07/03/21 Verito Whelan MD [address] [place] [address] Referring Pulmonary Disease 10/04/21 Nina Grigsby MD [address] [place] [address] [place] [address] Physician Hematology/Oncology 10/25/21 Patricia Miller, PLANOGRAPH OPERATOR.SOLAR PANEL TECHNICIAN [address] [place] [address] [place] [address] Nurse Practitioner Hematology/Oncology 10/25/21 Denita Rai, RN [address] [facility] [place] [address] Specialty Automatic Lathe Operator Hematology/Oncology 10/25/21 Minna Madrigal LSW Switch Engineer 01/08/23 Estella Fish, PLANOGRAPH OPERATOR.SOLAR PANEL TECHNICIAN [address] [place] [address] [place] [address] HOSPICE & PALLIATIVE MEDICINE 05/22/23 Julieth Tapia RN Specialty Automatic Lathe Operator HOSPICE & PALLIATIVE MEDICINE 05/22/23 Chain Tender Relationship Specialty Start Date End Date Christina Azul MD [address] [place] [address] PCP - General Family Medicine 07/03/21 Sofie Diana MD [address] [place] [address] Primary Staff Physician Cardiology 07/03/21 Verito Whelan MD [address] [place] [address] Referring Pulmonary Disease 10/04/21 Nina Grigsby MD [address] [place] [address] [place] [address] Physician Hematology/Oncology 10/25/21 Patricia Miller, PLANOGRAPH OPERATOR.SOLAR PANEL TECHNICIAN [address] [place] [address] [place] [address] Nurse Practitioner Hematology/Oncology 10/25/21 Denita Rai, KERRY [address] [facility] [place] [address] Specialty Automatic Lathe Operator Hematology/Oncology 10/25/21 Minna Madrigal LSW Switch Engineer 01/08/23 Estella Fish, PLANOGRAPH OPERATOR.SOLAR PANEL TECHNICIAN [address] [place] [address] [place] [address] HOSPICE & PALLIATIVE MEDICINE 05/22/23 Julieth Tapia RN Specialty Automatic Lathe Operator HOSPICE & PALLIATIVE MEDICINE 05/22/23 Chain Tender Relationship Specialty Start Date End Date Christina Azul MD [address] [place] [address] PCP - General Family Medicine 07/03/21 Sofie Dinaa MD [address] [place] [address] Primary Staff Physician Cardiology 07/03/21 Verito Whelan MD [address] [place] [address] Referring Pulmonary Disease 10/04/21 Nina Grigsby MD [address] [place] [address] [place] [address] Physician Hematology/Oncology 10/25/21 Patricia Miller, PLANOGRAPH OPERATOR.SOLAR PANEL TECHNICIAN [address] [place] [address] [place] [address] Nurse Practitioner Hematology/Oncology 10/25/21 Denita Rai, KERRY [address] [facility] [place] [address] Specialty Automatic Lathe Operator Hematology/Oncology 10/25/21 Minna Madrigal LSW Switch Engineer 01/08/23 Estella Fish, PLANOGRAPH OPERATOR.SOLAR PANEL TECHNICIAN [address] [facility] [place] [address] HOSPICE & PALLIATIVE MEDICINE 05/22/23 Julieth Tapia RN Specialty Automatic Lathe Operator HOSPICE & PALLIATIVE MEDICINE 05/22/23 Chain Tender Relationship Specialty Start Date End Date Christina Azul MD [address] [place] [address] PCP - General Family Medicine 07/03/21 Sofie Diana MD [address] [place] [address] Primary Staff Physician Cardiology 07/03/21 Verito Whelan MD [address] [place] [address] Referring Pulmonary Disease 10/04/21 Nina Grigsby MD [address] [place] [address] [place] [address] Physician Hematology/Oncology 10/25/21 Patricia Miller, PLANOGRAPH OPERATOR.SOLAR PANEL TECHNICIAN [address] [place] [address] [place] [address] Nurse Practitioner Hematology/Oncology 10/25/21 Denita Rai, KERRY [address] [facility] [place] [address] Specialty Automatic Lathe Operator Hematology/Oncology 10/25/21 Minna Madrigal LSW Switch Engineer 01/08/23 Estella Fish, PLANOGRAPH OPERATOR.SOLAR PANEL TECHNICIAN [address] [place] [address] [place] [address] HOSPICE & PALLIATIVE MEDICINE 05/22/23 Julieth Tapia, RN Specialty Automatic Lathe Operator HOSPICE & PALLIATIVE MEDICINE 05/22/23 Chain Tender Relationship Specialty Start Date End Date Christina Azul MD [address] [place] [address] PCP - General Family Medicine 07/03/21 Sofie Diana MD [address] [place] [address] Primary Staff Physician Cardiology 07/03/21 Verito Whelan MD [address] [place], [place] [id number] Referring Pulmonary Disease 10/04/21 Nina Grigsby MD [address] [place] [address] [place] [address] Physician Hematology/Oncology 10/25/21 Patricia Miller, OZZIE.SOLAR PANEL TECHNICIAN [address] [place] [address] [place] [address] Nurse Practitioner Hematology/Oncology 10/25/21 Denita Rai, KERRY [address] [facility] [place] [address] Specialty Automatic Lathe Operator Hematology/Oncology 10/25/21 Minna Madrigal LSW Switch Engineer 01/08/23 Estella Fish, PLANOGRAPH OPERATOR.SOLAR PANEL TECHNICIAN [address] [facility] [place] [address] HOSPICE & PALLIATIVE MEDICINE 05/22/23 Julieth Tapia RN Specialty Automatic Lathe Operator HOSPICE & PALLIATIVE MEDICINE 05/22/23 Chain Tender Relationship Specialty Start Date End Date Christina Azul MD [address] [facility] [place] [address] PCP - General Family Medicine 07/03/21 Sofie Diana MD [address] [place], [place] [phone] Primary Staff Physician Cardiology 07/03/21 Verito Whelan MD [address] [place], [place] 1734695 Referring Pulmonary Disease 10/04/21 Nina Grigsby MD [address] [facility] [place] [address] Physician Hematology/Oncology 10/25/21 Patricia Miller, PLANOGRAPH OPERATOR.SOLAR PANEL TECHNICIAN [address] [facility] [place] [address] Nurse Practitioner Hematology/Oncology 10/25/21 Denita Rai, KERRY [address] [facility] [place] [address] Specialty Automatic Lathe Operator Hematology/Oncology 10/25/21 Minna Madrigal LSW Switch Engineer 01/08/23 Estella Fish, PLANOGRAPH OPERATOR.SOLAR PANEL TECHNICIAN [address] [facility] [place] [address] HOSPICE & PALLIATIVE MEDICINE 05/22/23 Julieth Tapia RN Specialty Automatic Lathe Operator HOSPICE & PALLIATIVE MEDICINE 05/22/23 Chain Tender Relationship Specialty Start Date End Date Christina Azul MD [address], [place] [id number] PCP - General Family Medicine 07/03/21 Sofie Diana MD [address] [place] [address] Primary Staff Physician Cardiology 07/03/21 Verito Whelan MD [address] [place], [place] [id number] Referring Pulmonary Disease 10/04/21 Nina Grigsby MD [address] [place] [address] [place] [address] Physician Hematology/Oncology 10/25/21 Patricia Miller, PLANOGRAPH OPERATOR.SOLAR PANEL TECHNICIAN [address] [place] [address] [place] [address] Nurse Practitioner Hematology/Oncology 10/25/21 Denita Rai, KERRY [address] [place] [address] [place] [address] Specialty Automatic Lathe Operator Hematology/Oncology 10/25/21 Minna Madrigal LSW Switch Engineer 01/08/23 Estella Fish, PLANOGRAPH OPERATOR.SOLAR PANEL TECHNICIAN [address] [place] [address] [place] [address] HOSPICE & PALLIATIVE MEDICINE 05/22/23 Julieth Tapia, RN Specialty Automatic Lathe Operator HOSPICE & PALLIATIVE MEDICINE 05/22/23 Chain Tender Relationship Specialty Start Date End Date Enrique Esposito, PLANOGRAPH OPERATOR.SOLAR PANEL TECHNICIAN [address] [place] [address] PCP - General 08/15/23 Sofie Diana MD [address] [place] [address] Primary Staff Physician Cardiology 07/03/21 Verito Whelan MD [address] [place], [place] 5281995 Referring Pulmonary Disease 10/04/21 Nina Grigsby MD [address] [place] [address] [place] [address] Physician Hematology/Oncology 10/25/21 Patricia Miller, PLANOGRAPH OPERATOR.SOLAR PANEL TECHNICIAN [address] [place] [address] [place] [address] Nurse Practitioner Hematology/Oncology 10/25/21 Denita Rai, KERRY [address] [place] [address] [place] [address] Specialty Automatic Lathe Operator Hematology/Oncology 10/25/21 Minna Madrigal LSW Switch Engineer 01/08/23 Estella Fish, PLANOGRAPH OPERATOR.SOLAR PANEL TECHNICIAN [address] [place] [address] [place] [address] Hospice & Palliative Medicine 05/22/23 Julieth Tapia RN Specialty Automatic Lathe Operator Hospice & Palliative Medicine 05/22/23 Chain Tender Relationship Specialty Start Date End Date Enrique Esposito, PLANOGRAPH OPERATOR.SOLAR PANEL TECHNICIAN [address] [place] [address] PCP - General 08/15/23 Sofie Diana MD [address] [place] [address] Primary Staff Physician Cardiology 07/03/21 Verito Whelan MD [address] [place], [place] [phone] Referring Pulmonary Disease 10/04/21 Nina Grigsby MD [address] [place] [address] [place] [address] Physician Hematology/Oncology 10/25/21 Patricia Miller, PLANOGRAPH OPERATOR.SOLAR PANEL TECHNICIAN [address] [place] [address] [place] [address] Nurse Practitioner Hematology/Oncology 10/25/21 Denita Rai, KERRY [address] [place] [address] [place] [address] Specialty Automatic Lathe Operator Hematology/Oncology 10/25/21 Minna Madrigal LSW Switch Engineer 01/08/23 Estella Fish, PLANOGRAPH OPERATOR.SOLAR PANEL TECHNICIAN [address] [place] [address] [place] [address] Hospice & Palliative Medicine 05/22/23 Julieth Tapia, RN Specialty Automatic Lathe Operator Hospice & Palliative Medicine 05/22/23 Chain Tender Relationship Specialty Start Date End Date Enrique Esposito, PLANOGRAPH OPERATOR.SOLAR PANEL TECHNICIAN [address] [place] [address] [id number] PCP - General 08/15/23 Sofie Diana MD [address] [place], [place] [phone] Primary Staff Physician Cardiology 07/03/21 Verito Whelan MD [address] [place], [place] [phone] Referring Pulmonary Disease 10/04/21 Nina Grigsby MD [address] [place] [address] [place] [address] Physician Hematology/Oncology 10/25/21 Patricia Miller, PLANOGRAPH OPERATOR.SOLAR PANEL TECHNICIAN [address] [facility] [place] [address] Nurse Practitioner Hematology/Oncology 10/25/21 Denita Rai, KERRY [address] [place] [address] [place] [address] Specialty Automatic Lathe Operator Hematology/Oncology 10/25/21 Minna Madrigal LSW Switch Engineer 01/08/23 Estella Fish, PLANOGRAPH OPERATOR.SOLAR PANEL TECHNICIAN [address] [place] [address] [place] [address] Hospice & Palliative Medicine 05/22/23 Julieth Tapia, KERRY Specialty Automatic Lathe Operator Hospice & Palliative Medicine 05/22/23 Chain Tender Relationship Specialty Start Date End Date Enrique Esposito, PLANOGRAPH OPERATOR.SOLAR PANEL TECHNICIAN [address] [place] [address] PCP - General 08/15/23 Sofie Diana MD [address] [place], [place] [phone] Primary Staff Physician Cardiology 07/03/21 Verito Whelan MD [address] [place], [place] [phone] Referring Pulmonary Disease 10/04/21 Nina Grigsby MD [address] [place] [address] [place] [address] Physician Hematology/Oncology 10/25/21 Patricia Miller, PLANOGRAPH OPERATOR.SOLAR PANEL TECHNICIAN [address] [place] [address] [place] [address] Nurse Practitioner Hematology/Oncology 10/25/21 Denita Rai, RN [address] [facility] [place] [address] Specialty Automatic Lathe Operator Hematology/Oncology 10/25/21 Minna Madrigal LSW Switch Engineer 01/08/23 Estella Fish, PLANOGRAPH OPERATOR.SOLAR PANEL TECHNICIAN [address] [place] [address] [place] [address] Hospice & Palliative Medicine 05/22/23 Julieth Tapia RN Specialty Automatic Lathe Operator Hospice & Palliative Medicine 05/22/23 Chain Tender Relationship Specialty Start Date End Date Enrique Esposito, PLANOGRAPH OPERATOR.SOLAR PANEL TECHNICIAN [address] [place] [address] PCP - General 08/15/23 Sofie Diana MD [address] [place] [address] Primary Staff Physician Cardiology 07/03/21 Verito Whelan MD [address] [place] [id number] Referring Pulmonary Disease 10/04/21 Nina Grigsby MD [address] [place] [address] [place] [address] Physician Hematology/Oncology 10/25/21 Patricia Miller, PLANOGRAPH OPERATOR.SOLAR PANEL TECHNICIAN [address] [place] [address] [place], [place] [id number] Nurse Practitioner Hematology/Oncology 10/25/21 Denita Rai, KERRY [address] [facility] [place] [address] Specialty Automatic Lathe Operator Hematology/Oncology 10/25/21 Minna Madrigal LSW Switch Engineer 01/08/23 Estella Fish, PLANOGRAPH OPERATOR.SOLAR PANEL TECHNICIAN [address] [place] [address] [place] [address] Hospice & Palliative Medicine 05/22/23 Julieth Tapia RN Specialty Automatic Lathe Operator Hospice & Palliative Medicine 05/22/23 Chain Tender Relationship Specialty Start Date End Date Enrique Esposito, PLANOGRAPH OPERATOR.SOLAR PANEL TECHNICIAN [address] [place] [address] PCP - General 08/15/23 Sofie Diana MD [address] [place] [address] Primary Staff Physician Cardiology 07/03/21 Verito Whelan MD [address] [place] [address] Referring Pulmonary Disease 10/04/21 Nina Grigsby MD [address] [place] [address] [place] [address] Physician Hematology/Oncology 10/25/21 Patricia Miller, PLANOGRAPH OPERATOR.SOLAR PANEL TECHNICIAN [address] [place] [address] [place] [address] Nurse Practitioner Hematology/Oncology 10/25/21 Denita Rai, KERRY [address] [facility] [place] [address] Specialty Automatic Lathe Operator Hematology/Oncology 10/25/21 Minna Madrigal LSW Switch Engineer 01/08/23 Estella Fish, PLANOGRAPH OPERATOR.SOLAR PANEL TECHNICIAN [address] [facility] [place] [address] Hospice & Palliative Medicine 05/22/23 Julieth Tapia RN Specialty Automatic Lathe Operator Hospice & Palliative Medicine 05/22/23 Chain Tender Relationship Specialty Start Date End Date Enrique Esposito, PLANOGRAPH OPERATOR.SOLAR PANEL TECHNICIAN [address] [place] [address] PCP - General 08/15/23 Sofie Diana MD [address] [place], [place] [phone] Primary Staff Physician Cardiology 07/03/21 Verito Whelan MD [address] [place] [address] Referring Pulmonary Disease 10/04/21 Nina Grigsby MD [address] [place] [address] [place] [address] Physician Hematology/Oncology 10/25/21 Patricia Miller, PLANOGRAPH OPERATOR.SOLAR PANEL TECHNICIAN [address] [place] [address] [place] [address] Nurse Practitioner Hematology/Oncology 10/25/21 Denita Rai, KERRY [address] [facility] [place] [address] Specialty Automatic Lathe Operator Hematology/Oncology 10/25/21 Minna Madrigal, MARGARET Switch Engineer 01/08/23 Estella Fish, PLANOGRAPH OPERATOR.SOLAR PANEL TECHNICIAN [address] [place] [address] [place] [phone] Hospice & Palliative Medicine 05/22/23 Julieth Tapia, RN Specialty Automatic Lathe Operator Hospice & Palliative Medicine 05/22/23 Chain Tender Relationship Specialty Start Date End Date Enrique Esposito, PLANOGRAPH OPERATOR.SOLAR PANEL TECHNICIAN [address] [place] [address] PCP - General 08/15/23 Sofie Diana MD [address] [place], [place] [phone] Primary Staff Physician Cardiology 07/03/21 Verito Whelan MD [address] [place], [place] 0776995 Referring Pulmonary Disease 10/04/21 Nina Grigsby MD [address] [place] [address] [place] [address] Physician Hematology/Oncology 10/25/21 Patricia Miller, PLANOGRAPH OPERATOR.SOLAR PANEL TECHNICIAN [address] [place] [address] [place] [address] Nurse Practitioner Hematology/Oncology 10/25/21 Denita Rai, KERRY [address] [facility] [address] [place], [place] 6943270 Specialty Automatic Lathe Operator Hematology/Oncology 10/25/21 Minna Madrigal LSW Switch Engineer 01/08/23 Estella Fish, PLANOGRAPH OPERATOR.SOLAR PANEL TECHNICIAN [address] [facility] [place] [address] Hospice & Palliative Medicine 05/22/23 Julieth Tapia, RN Specialty Automatic Lathe Operator Hospice & Palliative Medicine 05/22/23 Chain Tender Relationship Specialty Start Date End Date Enrique Esposito, PLANOGRAPH OPERATOR.SOLAR PANEL TECHNICIAN [address] [place] [address] PCP - General 08/15/23 Sofie Diana MD [address] [place], [place] [phone] Primary Staff Physician Cardiology 07/03/21 Verito Whelan MD [address] [place], [place] [phone] Referring Pulmonary Disease 10/04/21 Nina Grigsby MD [address] [facility] [place] [address] Physician Hematology/Oncology 10/25/21 Patricia Miller, PLANOGRAPH OPERATOR.SOLAR PANEL TECHNICIAN [address] [facility] [place] [address] Nurse Practitioner Hematology/Oncology 10/25/21 Denita Rai, KERRY [address] [facility] [place] [address] Specialty Automatic Lathe Operator Hematology/Oncology 10/25/21 Minna Madrigal LSW Switch Engineer 01/08/23 Estella Fish, PLANOGRAPH OPERATOR.SOLAR PANEL TECHNICIAN [address] [facility] [place] [address] Hospice & Palliative Medicine 05/22/23 Julieth Tapia, RN Specialty Automatic Lathe Operator Hospice & Palliative Medicine 05/22/23 Chain Tender Relationship Specialty Start Date End Date Enrique Esposito, PLANOGRAPH OPERATOR.SOLAR PANEL TECHNICIAN [address] [place] [address] [id number] PCP - General 08/15/23 Sofie Diana MD [address] [place], [place] [phone] Primary Staff Physician Cardiology 07/03/21 Verito Whelan MD [address] [place], [place] [phone] Referring Pulmonary Disease 10/04/21 Nina Grigsby MD [address] [facility] [place] [address] Physician Hematology/Oncology 10/25/21 Patricia Miller, PLANOGRAPH OPERATOR.SOLAR PANEL TECHNICIAN [address] [facility] [place] [address] Nurse Practitioner Hematology/Oncology 10/25/21 Denita Rai, KERRY [address] [facility] [place] [address] Specialty Automatic Lathe Operator Hematology/Oncology 10/25/21 Minna Madrigal LSW Switch Engineer 01/08/23 Estella Fish, PLANOGRAPH OPERATOR.SOLAR PANEL TECHNICIAN [address] [facility] [place] [address] Hospice & Palliative Medicine 05/22/23 Julieth Tapia, RN Specialty Automatic Lathe Operator Hospice & Palliative Medicine 05/22/23 Chain Tender Relationship Specialty Start Date End Date Enrique Esposito, PLANOGRAPH OPERATOR.SOLAR PANEL TECHNICIAN [address] [place] [address] PCP - General 08/15/23 Sofie Diana MD [address] [place], [place] [phone] Primary Staff Physician Cardiology 07/03/21 Verito Whelan MD [address] [place], [place] [phone] Referring Pulmonary Disease 10/04/21 Nina Grigsby MD [address] [place] [address] [place] [address] Physician Hematology/Oncology 10/25/21 Patricia Miller, PLANOGRAPH OPERATOR.SOLAR PANEL TECHNICIAN [address] [place] [address] [place] [address] Nurse Practitioner Hematology/Oncology 10/25/21 Denita Rai, KERRY [address] [place] [address] [place] [address] Specialty Automatic Lathe Operator Hematology/Oncology 10/25/21 Minna Madrigal LSW Switch Engineer 01/08/23 Estelal Fish, PLANOGRAPH OPERATOR.SOLAR PANEL TECHNICIAN [address] [place] [address] [place] [address] Hospice & Palliative Medicine 05/22/23 Julieth Tapia, RN Specialty Automatic Lathe Operator Hospice & Palliative Medicine 05/22/23 Chain Tender Relationship Specialty Start Date End Date Enrique Esposito, PLANOGRAPH OPERATOR.SOLAR PANEL TECHNICIAN [address] [place] [address] PCP - General 08/15/23 Sofie Diana MD [address] [place] [address] Primary Staff Physician Cardiology 07/03/21 Verito Whelan MD [address] [place] [address] Referring Pulmonary Disease 10/04/21 Nina Grigsby MD [address] [place] [address] [place] [address] Physician Hematology/Oncology 10/25/21 Patricia Miller, PLANOGRAPH OPERATOR.SOLAR PANEL TECHNICIAN [address] [place] [address] [place] [address] Nurse Practitioner Hematology/Oncology 10/25/21 Denita Rai, KERRY [address] [place] [address] [place] [address] Specialty Automatic Lathe Operator Hematology/Oncology 10/25/21 Minna Madrigal LSW Switch Engineer 01/08/23 Estella Fish, PLANOGRAPH OPERATOR.SOLAR PANEL TECHNICIAN [address] [place] [address] [place] [address] Hospice & Palliative Medicine 05/22/23 Julieth Tapia, RN Specialty Automatic Lathe Operator Hospice & Palliative Medicine 05/22/23 Chain Tender Relationship Specialty Start Date End Date Enrique Esposito, PLANOGRAPH OPERATOR.SOLAR PANEL TECHNICIAN [address] [place] [address] PCP - General 08/15/23 Sofie Diana MD [address] [place], [place] [phone] Primary Staff Physician Cardiology 07/03/21 Verito Whelan MD [address] [place], [place] [phone] Referring Pulmonary Disease 10/04/21 Nina Grigsby MD [address] [place] [address] [place] [address] Physician Hematology/Oncology 10/25/21 Patricia Miller, PLANOGRAPH OPERATOR.SOLAR PANEL TECHNICIAN [address] [place] [address] [place] [address] Nurse Practitioner Hematology/Oncology 10/25/21 Denita Rai, KERRY [address] [place] [address] [place] [address] Specialty Automatic Lathe Operator Hematology/Oncology 10/25/21 Minna Madrigal LSW Switch Engineer 01/08/23 Estella Fish, PLANOGRAPH OPERATOR.SOLAR PANEL TECHNICIAN [address] [place] [address] [place] [address] Hospice & Palliative Medicine 05/22/23 Julieth Tapia RN Specialty Automatic Lathe Operator Hospice & Palliative Medicine 05/22/23 Chain Tender Relationship Specialty Start Date End Date Enrique Esposito, PLANOGRAPH OPERATOR.SOLAR PANEL TECHNICIAN [address] [place] [address] PCP - General 08/15/23 Sofie Diana MD [address] [place] [address] Primary Staff Physician Cardiology 07/03/21 Verito Whelan MD [address] [place] [address] Referring Pulmonary Disease 10/04/21 Nina Grigsby MD [address] [place] [address] [place] [address] Physician Hematology/Oncology 10/25/21 Patricia Miller, PLANOGRAPH OPERATOR.SOLAR PANEL TECHNICIAN [address] [place] [address] [address] [place], [place] [id number] Nurse Practitioner Hematology/Oncology 10/25/21 Denita Rai, RN [address] [facility] [place] [address] Specialty Automatic Lathe Operator Hematology/Oncology 10/25/21 Minna Madrigal LSW Switch Engineer 01/08/23 Estella Fish, PLANOGRAPH OPERATOR.SOLAR PANEL TECHNICIAN [address] [place] [address] [place] [address] Hospice & Palliative Medicine 05/22/23 Julieth Tapia RN Specialty Automatic Lathe Operator Hospice & Palliative Medicine 05/22/23 Chain Tender Relationship Specialty Start Date End Date Enrique Esposito, PLANOGRAPH OPERATOR.SOLAR PANEL TECHNICIAN [address] [place] [address] PCP - General 08/15/23 Sofie Diana MD [address] [place], [place] [id number] Primary Staff Physician Cardiology 07/03/21 Verito Whelan MD [address] [place], [place] [phone] Referring Pulmonary Disease 10/04/21 Nina Grigsby MD [address] [place] [address] [place] [address] Physician Hematology/Oncology 10/25/21 Patricia Miller, PLANOGRAPH OPERATOR.SOLAR PANEL TECHNICIAN [address] [place] [address] [place] [address] Nurse Practitioner Hematology/Oncology 10/25/21 Denita Rai, KERRY [address] [facility] [place] [address] Specialty Automatic Lathe Operator Hematology/Oncology 10/25/21 Minna Madrigal LSW Switch Engineer 01/08/23 Estella Fish, PLANOGRAPH OPERATOR.SOLAR PANEL TECHNICIAN [address] [place] [address] [place] [address] Hospice & Palliative Medicine 05/22/23 Julieth Tapia RN Specialty Automatic Lathe Operator Hospice & Palliative Medicine 05/22/23 Chain Tender Relationship Specialty Start Date End Date Enrique Esposito, PLANOGRAPH OPERATOR.SOLAR PANEL TECHNICIAN [address] [place] [address] PCP - General 08/15/23 Sofie Diana MD [address] [place], [place] [phone] Primary Staff Physician Cardiology 07/03/21 Verito Whelan MD [address] [place] [address] Referring Pulmonary Disease 10/04/21 Nina Grigsby MD [address] [place] [address] [place] [address] Physician Hematology/Oncology 10/25/21 Patricia Miller, PLANOGRAPH OPERATOR.SOLAR PANEL TECHNICIAN [address] [place] [address] [place] [address] Nurse Practitioner Hematology/Oncology 10/25/21 Denita Rai, KERRY [address] [facility] [place] [address] Specialty Automatic Lathe Operator Hematology/Oncology 10/25/21 Minna Madrigal LSW Switch Engineer 01/08/23 Estella Fish, PLANOGRAPH OPERATOR.SOLAR PANEL TECHNICIAN [address] [place] [address] [place] [phone] Hospice & Palliative Medicine 05/22/23 Julieth Tapia, RN Specialty Automatic Lathe Operator Hospice & Palliative Medicine 05/22/23 Chain Tender Relationship Specialty Start Date End Date Enrique Esposito, PLANOGRAPH OPERATOR.SOLAR PANEL TECHNICIAN [address] [place] [address] 47971 PCP - General 08/15/23 Sofie Diana MD [address] [place], [place] [phone] Primary Staff Physician Cardiology 07/03/21 Verito Whelan MD [address] [place], [place] [id number] Referring Pulmonary Disease 10/04/21 Nina Grigsby MD [address] [place] [address] [place] [address] Physician Hematology/Oncology 10/25/21 Patricia Miller, PLANOGRAPH OPERATOR.SOLAR PANEL TECHNICIAN [address] [place] [address] [place] [address] Nurse Practitioner Hematology/Oncology 10/25/21 Denita Rai, KERRY [address] [place] [address] [place] [address] Specialty Automatic Lathe Operator Hematology/Oncology 10/25/21 Minna Madrigal, MARGARET Switch Engineer 01/08/23 Estella Fish, PLANOGRAPH OPERATOR.SOLAR PANEL TECHNICIAN [address] [place] [address] [place] [address] Hospice & Palliative Medicine 05/22/23 Julieth Tapia, RN Specialty Automatic Lathe Operator Hospice & Palliative Medicine 05/22/23 Chain Tender Relationship Specialty Start Date End Date Enrique Esposito, PLANOGRAPH OPERATOR.SOLAR PANEL TECHNICIAN [address] [place] [address] PCP - General 08/15/23 Sofie Diana MD [address] [place] [address] Primary Staff Physician Cardiology 07/03/21 Verito Whelan MD [address] [place], [place] [id number] Referring Pulmonary Disease 10/04/21 Nina Grigsby MD [address] [place] [address] [place] [address] Physician Hematology/Oncology 10/25/21 Patricia Miller, PLANOGRAPH OPERATOR.SOLAR PANEL TECHNICIAN [address] [place] [address] [place] [address] Nurse Practitioner Hematology/Oncology 10/25/21 Denita Rai, KERRY [address] [place] [address] [place] [address] Specialty Automatic Lathe Operator Hematology/Oncology 10/25/21 Minna Madrigal LSW Switch Engineer 01/08/23 Estella Fish, PLANOGRAPH OPERATOR.SOLAR PANEL TECHNICIAN [address] [place] [address] [place] [address] Hospice & Palliative Medicine 05/22/23 Julieth Tapia RN Specialty Automatic Lathe Operator Hospice & Palliative Medicine 05/22/23 Chain Tender Relationship Specialty Start Date End Date Enrique Esposito, PLANOGRAPH OPERATOR.SOLAR PANEL TECHNICIAN [address] [place] [address] [id number] PCP - General 08/15/23 Sofie Diana MD [address] [place], [place] [phone] Primary Staff Physician Cardiology 07/03/21 Verito Whelan MD [address] [place], [place] [phone] Referring Pulmonary Disease 10/04/21 Nina Grigsby MD [address] [place] [address] [place] [address] Physician Hematology/Oncology 10/25/21 Patricia Miller, PLANOGRAPH OPERATOR.SOLAR PANEL TECHNICIAN [address] [place] [address] [place] [address] Nurse Practitioner Hematology/Oncology 10/25/21 Denita Rai, KERRY [address] [facility] [place] [address] Specialty Automatic Lathe Operator Hematology/Oncology 10/25/21 Minna Madrigal LSW Switch Engineer 01/08/23 Estella Fish, PLANOGRAPH OPERATOR.SOLAR PANEL TECHNICIAN [address] [facility] [place] [address] Hospice & Palliative Medicine 05/22/23 Julieth Tapia, RN Specialty Automatic Lathe Operator Hospice & Palliative Medicine 05/22/23 Chain Tender Relationship Specialty Start Date End Date Enrique Esposito, PLANOGRAPH OPERATOR.SOLAR PANEL TECHNICIAN [address] [place] [address] [id number] PCP - General 08/15/23 Sofie Diana MD [address] [place] [address] Primary Staff Physician Cardiology 07/03/21 Verito Whelan MD [address] [place] [address] Referring Pulmonary Disease 10/04/21 Nina Grigsby MD [address] [facility] [place] [address] Physician Hematology/Oncology 10/25/21 Patricia Miller, PLANOGRAPH OPERATOR.SOLAR PANEL TECHNICIAN [address] [facility] [place] [address] Nurse Practitioner Hematology/Oncology 10/25/21 Denita Rai, KERRY [address] [facility] [place] [address] Specialty Automatic Lathe Operator Hematology/Oncology 10/25/21 Minna Madrigal LSW Switch Engineer 01/08/23 Estella Fish, PLANOGRAPH OPERATOR.SOLAR PANEL TECHNICIAN [address] [facility] [place] [address] Hospice & Palliative Medicine 05/22/23 Julieth Tapia, RN Specialty Automatic Lathe Operator Hospice & Palliative Medicine 05/22/23 Chain Tender Relationship Specialty Start Date End Date Enrique Esposito, PLANOGRAPH OPERATOR.SOLAR PANEL TECHNICIAN [address] [place] [address] PCP - General 08/15/23 Sofie Diana MD [address] [place] [address] Primary Staff Physician Cardiology 07/03/21 Verito Whelan MD [address] [place] [address] Referring Pulmonary Disease 10/04/21 Nina Grigsby MD [address] [place] [address] [place] [address] Physician Hematology/Oncology 10/25/21 Patricia Miller, PLANOGRAPH OPERATOR.SOLAR PANEL TECHNICIAN [address] [place] [address] [place] [address] Nurse Practitioner Hematology/Oncology 10/25/21 Denita Rai, KERRY [address] [facility] [place] [address] Specialty Automatic Lathe Operator Hematology/Oncology 10/25/21 Minna Madrigal LSW Switch Engineer 01/08/23 Estella Fish, PLANOGRAPH OPERATOR.SOLAR PANEL TECHNICIAN [address] [place] [address] [place] [address] Hospice & Palliative Medicine 05/22/23 Julieth Tapia, RN Specialty Automatic Lathe Operator Hospice & Palliative Medicine 05/22/23 Chain Tender Relationship Specialty Start Date End Date Enrique Esposito, PLANOGRAPH OPERATOR.SOLAR PANEL TECHNICIAN [address] [place] [address] 96647 PCP - General 08/15/23 Sofie Diana MD [address] [place] [address] Primary Staff Physician Cardiology 07/03/21 Verito Whelan MD [address] [place] [id number] Referring Pulmonary Disease 10/04/21 Nina Grigsby MD [address] [place] [address] [place] [address] Physician Hematology/Oncology 10/25/21 Patricia Miller, PLANOGRAPH OPERATOR.SOLAR PANEL TECHNICIAN [address] [place] [address] [place] [address] Nurse Practitioner Hematology/Oncology 10/25/21 Denita Rai, KERRY [address] [place] [address] [place] [address] Specialty Automatic Lathe Operator Hematology/Oncology 10/25/21 Minna Madrigal LSW Switch Engineer 01/08/23 Estella Fish, PLANOGRAPH OPERATOR.SOLAR PANEL TECHNICIAN [address] [place] [address] [place] [phone] Hospice & Palliative Medicine 05/22/23 Julieth Tapia, RN Specialty Automatic Lathe Operator Hospice & Palliative Medicine 05/22/23 Chain Tender Relationship Specialty Start Date End Date Enrique Esposito, PLANOGRAPH OPERATOR.SOLAR PANEL TECHNICIAN [address] [place] [address] 97478 PCP - General 08/15/23 Sofie Diana MD [address] [place] [address] Primary Staff Physician Cardiology 07/03/21 Verito Whelan MD [address] [place] [address] Referring Pulmonary Disease 10/04/21 Nina Grigsby MD [address] [place] [address] [place] [address] Physician Hematology/Oncology 10/25/21 Patricai Miller, PLANOGRAPH OPERATOR.SOLAR PANEL TECHNICIAN [address] [place] [address] [place] [address] Nurse Practitioner Hematology/Oncology 10/25/21 Denita Rai, KERRY [address] [place] [address] [place] [address] Specialty Automatic Lathe Operator Hematology/Oncology 10/25/21 Minna Madrigal LSW Switch Engineer 01/08/23 Estella Fish, PLANOGRAPH OPERATOR.SOLAR PANEL TECHNICIAN [address] [place] [address] [place] [address] Hospice & Palliative Medicine 05/22/23 Julieth Tapia RN Specialty Automatic Lathe Operator Hospice & Palliative Medicine 05/22/23 Team Status: Active Member Role Status Dates NON STAFF Primary Care Provider Active Team Status: Inactive Member Role Status Dates NON STAFF Primary Care Provider Active Start: February 07, 2024 End: February 07, 2024 John Dominguez MD Emergency Provider Active Star t: February 07, 2024 End: February 07, 2024 Chain Tender Relationship Specialty Start Date End Date Enrique Esposito, PLANOGRAPH OPERATOR.SOLAR PANEL TECHNICIAN [address] [place] [address] 79023 PCP - General 08/15/23 Sofie Diana MD [address] [place] [address] Primary Staff Physician Cardiology 07/03/21 Verito Whelan MD [address] [place] [address] Referring Pulmonary Disease 10/04/21 Nina Grigsby MD [address] [place] [address] [place] [address] Physician Hematology/Oncology 10/25/21 Patricia Miller, PLANOGRAPH OPERATOR.SOLAR PANEL TECHNICIAN [address] [place] [address] [place] [address] Nurse Practitioner Hematology/Oncology 10/25/21 Denita Rai, KERRY [address] [place] [address] [place] [address] Specialty Automatic Lathe Operator Hematology/Oncology 10/25/21 Minna Madrigal LSW Switch Engineer 01/08/23 Estella Fish, PLANOGRAPH OPERATOR.SOLAR PANEL TECHNICIAN [address] [place] [address] [place] [address] Hospice & Palliative Medicine 05/22/23 Julieth Tapia RN Specialty Automatic Lathe Operator Hospice & Palliative Medicine 05/22/23 Chain Tender Relationship Specialty Start Date End Date Enrique Esposito, PLANOGRAPH OPERATOR.SOLAR PANEL TECHNICIAN [address] [place] [address] 96908 PCP - General 08/15/23 Sofie Diana MD [address] [place], [place] [phone] Primary Staff Physician Cardiology 07/03/21 Verito Whelan MD [address] [place], [place] [phone] Referring Pulmonary Disease 10/04/21 Nina Grigsby MD [address] [place] [address] [place] [address] Physician Hematology/Oncology 10/25/21 Patricia Miller, PLANOGRAPH OPERATOR.SOLAR PANEL TECHNICIAN [address] [place] [address] [place] [address] Nurse Practitioner Hematology/Oncology 10/25/21 Denita Rai, RN [address] [place] [address] [place] [address] Specialty Automatic Lathe Operator Hematology/Oncology 10/25/21 Minna Madrigal LSW Switch Engineer 01/08/23 Estella Fish, PLANOGRAPH OPERATOR.SOLAR PANEL TECHNICIAN [address] [place] [address] [place] [address] Hospice & Palliative Medicine 05/22/23 Julieth Tapia RN Specialty Automatic Lathe Operator Hospice & Palliative Medicine 05/22/23 Chain Tender Relationship Specialty Start Date End Date Enrique Esposito, PLANOGRAPH OPERATOR.SOLAR PANEL TECHNICIAN [address] [place] [address] 43368 PCP - General 08/15/23 Sofie Diana MD [address] [place] [address] Primary Staff Physician Cardiology 07/03/21 Verito Whelan MD [address] [place] [address] Referring Pulmonary Disease 10/04/21 Nina Grigsby MD [address] [place] [address] [place] [address] Physician Hematology/Oncology 10/25/21 Patricia Miller, PLANOGRAPH OPERATOR.SOLAR PANEL TECHNICIAN [address] [place] [address] [address] [place], [place] [phone] Nurse Practitioner Hematology/Oncology 10/25/21 Denita Rai, KERRY [address] [facility] [place] [address] Specialty Automatic Lathe Operator Hematology/Oncology 10/25/21 Minna Madrigal LSW Switch Engineer 01/08/23 Estella Fish, PLANOGRAPH OPERATOR.SOLAR PANEL TECHNICIAN [address] [place] [address] [place] [address] Hospice & Palliative Medicine 05/22/23 Julieth Tapia RN Specialty Automatic Lathe Operator Hospice & Palliative Medicine 05/22/23 Chain Tender Relationship Specialty Start Date End Date Enrique Esposito, PLANOGRAPH OPERATOR.SOLAR PANEL TECHNICIAN [address] [place] [address] 43272 PCP - General 08/15/23 Sofie Diana MD [address] [place], [place] [phone] Primary Staff Physician Cardiology 07/03/21 Verito Whelan MD [address] [place], [place] [phone] Referring Pulmonary Disease 10/04/21 Nina Grigsby MD [address] [place] [address] [place] [address] Physician Hematology/Oncology 10/25/21 Patricia Miller, PLANOGRAPH OPERATOR.SOLAR PANEL TECHNICIAN [address] [place] [address] [place] [address] Nurse Practitioner Hematology/Oncology 10/25/21 Denita Rai, KERRY [address] [facility] [place] [address] Specialty Automatic Lathe Operator Hematology/Oncology 10/25/21 Minna Madrigal, APPEALS ASSISTANT Switch Engineer 01/08/23 Estella Fish, PLANOGRAPH OPERATOR.SOLAR PANEL TECHNICIAN [address] [facility] [place] [address] Hospice & Palliative Medicine 05/22/23 Julieth Tapia RN Specialty Automatic Lathe Operator Hospice & Palliative Medicine 05/22/23 Chain Tender Relationship Specialty Start Date End Date Enrique Esposito, PLANOGRAPH OPERATOR.SOLAR PANEL TECHNICIAN [address] [place] [address] 41273 PCP - General 08/15/23 Sofie Diana MD [address] [place], [place] [phone] Primary Staff Physician Cardiology 07/03/21 Verito Whelan MD [address] [place] [address] Referring Pulmonary Disease 10/04/21 Nina Grigsby MD [address] [place] [address] [place] [address] Physician Hematology/Oncology 10/25/21 Patricia Miller, PLANOGRAPH OPERATOR.SOLAR PANEL TECHNICIAN [address] [place] [address] [place] [address] Nurse Practitioner Hematology/Oncology 10/25/21 Denita Rai, KERRY [address] [facility] [place] [address] Specialty Automatic Lathe Operator Hematology/Oncology 10/25/21 Minna Madrigal, APPEALS ASSISTANT Switch Engineer 01/08/23 Estella Fish, PLANOGRAPH OPERATOR.SOLAR PANEL TECHNICIAN [address] [place] [address] [place] [phone] Hospice & Palliative Medicine 05/22/23 Julieth Tapia, RN Specialty Automatic Lathe Operator Hospice & Palliative Medicine 05/22/23 Chain Tender Relationship Specialty Start Date End Date Enrique Esposito, PLANOGRAPH OPERATOR.SOLAR PANEL TECHNICIAN [address] [place] [address] 76336 PCP - General 08/15/23 Sofie Diana MD [address] [place], [place] [phone] Primary Staff Physician Cardiology 07/03/21 Verito Whelan MD [address] [place], [place] [id number] Referring Pulmonary Disease 10/04/21 Nina Grigsby MD [address] [place] [address] [place] [address] Physician Hematology/Oncology 10/25/21 Patricia Miller, PLANOGRAPH OPERATOR.SOLAR PANEL TECHNICIAN [address] [place] [address] [place] [address] Nurse Practitioner Hematology/Oncology 10/25/21 Denita Rai, KERRY [address] [place] [address] [address] [place], [place] [phone] Specialty Automatic Lathe Operator Hematology/Oncology 10/25/21 Minna Madrigal LSW Switch Engineer 01/08/23 Estella Fish, PLANOGRAPH OPERATOR.SOLAR PANEL TECHNICIAN [address] [facility] [place] [phone] Hospice & Palliative Medicine 05/22/23 Julieth Tapia RN Specialty Automatic Lathe Operator Hospice & Palliative Medicine 05/22/23 Chain Tender Relationship Specialty Start Date End Date Enrique Esposito, PLANOGRAPH OPERATOR.SOLAR PANEL TECHNICIAN [address] [place] [address] 95416 PCP - General 08/15/23 Sofie Diana MD [address] [place], [place] [phone] Primary Staff Physician Cardiology 07/03/21 Verito Whelan MD [address] [place], [place] [phone] Referring Pulmonary Disease 10/04/21 Nina Grigsby MD [address] [facility] [place] [address] Physician Hematology/Oncology 10/25/21 Patricia Miller, PLANOGRAPH OPERATOR.SOLAR PANEL TECHNICIAN [address] [facility] [place] [address] Nurse Practitioner Hematology/Oncology 10/25/21 Denita Rai, KERRY [address] [facility] [place] [address] Specialty Automatic Lathe Operator Hematology/Oncology 10/25/21 Minna Madrigal LSW Switch Engineer 01/08/23 Estella Fish, PLANOGRAPH OPERATOR.SOLAR PANEL TECHNICIAN [address] [facility] [place] [address] Hospice & Palliative Medicine 05/22/23 Julieth Tapia RN Specialty Automatic Lathe Operator Hospice & Palliative Medicine 05/22/23 Chain Tender Relationship Specialty Start Date End Date Enrique Esposito, PLANOGRAPH OPERATOR.SOLAR PANEL TECHNICIAN [address] [place] [address] [phone] PCP - General 08/15/23 Sofie Diana MD [address] [place], [place] 0000995 Primary Staff Physician Cardiology 07/03/21 Verito Whelan MD [address] [place], [place] [phone] Referring Pulmonary Disease 10/04/21 Nina Grigsby MD [address] [place] [address] [place] [address] Physician Hematology/Oncology 10/25/21 Patricia Miller, PLANOGRAPH OPERATOR.SOLAR PANEL TECHNICIAN [address] [place] [address] [place] [address] Nurse Practitioner Hematology/Oncology 10/25/21 Denita Rai, KERRY [address] [place] [address] [place] [address] Specialty Automatic Lathe Operator Hematology/Oncology 10/25/21 Minna Madrigal LSW Switch Engineer 01/08/23 Estella Fish, PLANOGRAPH OPERATOR.SOLAR PANEL TECHNICIAN [address] [place] [address] [place] [address] Hospice & Palliative Medicine 05/22/23 Julieth Taipa, RN Specialty Automatic Lathe Operator Hospice & Palliative Medicine 05/22/23 Chain Tender Relationship Specialty Start Date End Date Enrique Esposito, PLANOGRAPH OPERATOR.SOLAR PANEL TECHNICIAN [address] [place] [address] 70434 PCP - General 08/15/23 Sofie Diana MD [address] [place] [address] Primary Staff Physician Cardiology 07/03/21 Verito Whelan MD [address] [place], [place] [phone] Referring Pulmonary Disease 10/04/21 Nina Grigsby MD [address] [place] [address] [place] [address] Physician Hematology/Oncology 10/25/21 Patricia Miller, PLANOGRAPH OPERATOR.SOLAR PANEL TECHNICIAN [address] [place] [address] [place] [address] Nurse Practitioner Hematology/Oncology 10/25/21 Denita Rai, KERRY [address] [place] [address] [place] [address] Specialty Automatic Lathe Operator Hematology/Oncology 10/25/21 Minna Madrigal LSW Switch Engineer 01/08/23 Estella Fish, PLANOGRAPH OPERATOR.SOLAR PANEL TECHNICIAN [address] [place] [address] [place] [address] Hospice & Palliative Medicine 05/22/23 Julieth Tapia RN Specialty Automatic Lathe Operator Hospice & Palliative Medicine 05/22/23 Chain Tender Relationship Specialty Start Date End Date Enrique Esposito, PLANOGRAPH OPERATOR.SOLAR PANEL TECHNICIAN [address] [place] [address] 61148 PCP - General 08/15/23 Sofie Diana MD [address] [place] [address] Primary Staff Physician Cardiology 07/03/21 Verito Whelan MD [address] [place], [place] 1700[address] Referring Pulmonary Disease 10/04/21 Nina Grigsby MD [address] [place] [address] [place] [address] Physician Hematology/Oncology 10/25/21 Patricia Miller, PLANOGRAPH OPERATOR.SOLAR PANEL TECHNICIAN [address] [place] [address] [place] [address] Nurse Practitioner Hematology/Oncology 10/25/21 Denita Rai, KERRY [address] [place] [address] [place] [address] Specialty Automatic Lathe Operator Hematology/Oncology 10/25/21 Minna Madrigal LSW Switch Engineer 01/08/23 Estella Fish, PLANOGRAPH OPERATOR.SOLAR PANEL TECHNICIAN [address] [place] [address] [place] [address] Hospice & Palliative Medicine 05/22/23 Julieth Tapia RN Specialty Automatic Lathe Operator Hospice & Palliative Medicine 05/22/23 Chain Tender Relationship Specialty Start Date End Date Enrique Esposito, PLANOGRAPH OPERATOR.SOLAR PANEL TECHNICIAN [address] [place] [address] 91419 PCP - General 08/15/23 Sofie Diana MD [address] [place], [place] [phone] Primary Staff Physician Cardiology 07/03/21 Verito Whelan MD [address] [place] [address] Referring Pulmonary Disease 10/04/21 Nina Grigsby MD [address] [place] [address] [place] [address] Physician Hematology/Oncology 10/25/21 Patricia Miller, PLANOGRAPH OPERATOR.SOLAR PANEL TECHNICIAN [address] [place] [address] [place] [address] Nurse Practitioner Hematology/Oncology 10/25/21 Denita Rai, KERRY [address] [place] [address] [place] [address] Specialty Automatic Lathe Operator Hematology/Oncology 10/25/21 Minna Madrigal LSW Switch Engineer 01/08/23 Estella Fish, PLANOGRAPH OPERATOR.SOLAR PANEL TECHNICIAN [address] [place] [address] [place] [address] Hospice & Palliative Medicine 05/22/23 Julieth Tapia RN Specialty Automatic Lathe Operator Hospice & Palliative Medicine 05/22/23 Chain Tender Relationship Specialty Start Date End Date Enrique Esposito, PLANOGRAPH OPERATOR.SOLAR PANEL TECHNICIAN [address] [place] [address] 69803 PCP - General 08/15/23 Sofie Diana MD [address] [place], [place] [phone] Primary Staff Physician Cardiology 07/03/21 Verito Whelan MD [address] [place], [place] [phone] Referring Pulmonary Disease 10/04/21 Nina Grigsby MD [address] [place] [address] [place] [address] Physician Hematology/Oncology 10/25/21 Patricia Miller, PLANOGRAPH OPERATOR.SOLAR PANEL TECHNICIAN [address] [place] [address] [place] [address] Nurse Practitioner Hematology/Oncology 10/25/21 Denita Rai, RN [address] [place] [address] [place] [address] Specialty Automatic Lathe Operator Hematology/Oncology 10/25/21 Minna Madrigal LSW Switch Engineer 01/08/23 Estella Fish, PLANOGRAPH OPERATOR.SOLAR PANEL TECHNICIAN [address] [place] [address] [place] [address] Hospice & Palliative Medicine 05/22/23 Julieth Tapia RN Specialty Automatic Lathe Operator Hospice & Palliative Medicine 05/22/23 Chain Tender Relationship Specialty Start Date End Date Enrique Esposito, PLANOGRAPH OPERATOR.SOLAR PANEL TECHNICIAN [address] [place] [address] 42102 PCP - General 08/15/23 Sofie Diana MD [address] [place] [address] Primary Staff Physician Cardiology 07/03/21 Verito Whelan MD [address] [place] [address] Referring Pulmonary Disease 10/04/21 Nina Grigsby MD [address] [place] [address] [place] [address] Physician Hematology/Oncology 10/25/21 Patricia Miller, PLANOGRAPH OPERATOR.SOLAR PANEL TECHNICIAN [address] [place] [address] [place], [place] [id number] Nurse Practitioner Hematology/Oncology 10/25/21 Denita Rai, KERRY [address] [place] [address] [place] [address] Specialty Automatic Lathe Operator Hematology/Oncology 10/25/21 Minna Madrigal LSW Switch Engineer 01/08/23 Estella Fish, PLANOGRAPH OPERATOR.SOLAR PANEL TECHNICIAN [address] [place] [address] [place] [address] Hospice & Palliative Medicine 05/22/23 Julieth Tapia RN Specialty Automatic Lathe Operator Hospice & Palliative Medicine 05/22/23 Team Status: Inactive Member Role Status Dates NON STAFF Primary Care Provider Active Start: March 18, 2024 End: March 18, 2024 Abel De La Cruz DO Emergency Provider Active St art: March 18, 2024 End: March 18, 2024 Team Status: Inactive Member Role Status Dates NON STAFF Primary Care Provider Active Start: March 19, 2024 End: March 19, 2024 Shahbaz Lehman DO Emergency Provider Active Start: March 19, 2024 End: March 19, 2024 Team Status: Inactive Member Role Status Dates NON STAFF Primary Care Provider Active Start: March 19, 2024 End: March 20, 2024 Deborah Lamar MD Emergency Provider Active Start: March 19, 2024 End: March 20, 2024 Jair Nichols MD Admit Provider, Att ending Provider Active Start: March 19, 2024 End: March 20, 2024 Davion Allen DO Other Provider Active Start: March 19, 2024 End: March 20, 2024 Chain Tender Relationship Specialty Start Date End Date Enrique Esposito, PLANOGRAPH OPERATOR.SOLAR PANEL TECHNICIAN [address] [place] [address] PCP - General 08/15/23 Sofie Diana MD [address] [place] [address] Primary Staff Physician Cardiology 07/03/21 Verito Whelan MD [address] [facility] [place] [address] Referring Pulmonary Disease 10/04/21 Nina Grigsby MD [address] [place] [address] [place] [address] Physician Hematology/Oncology 10/25/21 Patricia Miller, PLANOGRAPH OPERATOR.SOLAR PANEL TECHNICIAN [address] [place] [address] [place] [address] Nurse Practitioner Hematology/Oncology 10/25/21 Denita Rai, KERRY [address] [place] [address] [place] [address] Specialty Automatic Lathe Operator Hematology/Oncology 10/25/21 Minna Madrigal LSW Switch Engineer 01/08/23 Estella Fish, PLANOGRAPH OPERATOR.SOLAR PANEL TECHNICIAN [address] [place] [address] [place] [address] Hospice & Palliative Medicine 05/22/23 Julieth Tapia RN Specialty Automatic Lathe Operator Hospice & Palliative Medicine 05/22/23 Reason for Visit (unrecogniz ed section and content) Reason Comments Pain Specialty Diagnoses / Procedures Referred By Contac t Referred To Contact Hospice & Palliative Medicine / PALLIATIVE MEDICINE Diagnoses 3 month follow up Procedures OFFICE/OUTPATIENT ESTABLISHED HIGH MDM 40 MIN EST PATIENT Estella Fish, PLANOGRAPH OPERATOR.SOLAR PANEL TECHNICIAN [address] [facility] [place] [address] Estella Fish, PLANOGRAPH OPERATOR.SOLAR PANEL TECHNICIAN [address] [place] [address] Referral ID Status Reason Start Date Expiration Date V isits Requested Visits Authorized [id number] Authorized 10/29/2023 07/20/2024 99 99 Reason Comments Nutrition Assessment Specialty Diagnoses / Procedures Referred By Contac t Referred To Contact Nutrition / NUTRI SAND Diagnoses Nutri appt Procedures OFFICE/OUTPATIENT ESTABLISHED MOD MDM 30 MIN EST PATIENT Dominique Rudd, RD [address] [place] [address] Referral ID Status Reason Start Date Expiration Date Visits Re quested Visits Authorized [id number] Closed 10/20/2023 07/20/2024 1 1 Reason Comments [...] ESTABLISHED SF MDM 10 MIN EST PATIENT CateKarmenronald Beatty, PLANOGRAPH OPERATOR.SOLAR PANEL TECHNICIAN [address] [place] [address] Nina Grigsby MD [address] [place] [address] [place] [address] Referral ID Status Reason Start Date Expiration Date Visits Re quested Visits Authorized [id number] Closed 09/04/2023 07/20/2024 1 1 Specialty Diagnoses / Procedures Referred By Contac t Referred To Contact Radiation Oncology / RADIATION ONCOLOGY Diagnoses 2 Week Post XRT Procedures EST POST 90 DAY RAD TX Jyoti Limon MD [address] [place] [address] [place] [address] Jyoti Limon MD [address] [place] [address] [place] [address] Referral ID Status Reason Start Date Expiration Date V isits Requested Visits Authorized [id number] Authorized 11/12/2022 07/20/2023 99 99 Specialty Diagnoses / Procedures Referred By Contac t Referred To Contact [facility] Diagnoses Malignant neoplasm of upper lobe, left bronchus or lung Procedures REFERRAL TO [facility] FINANCIAL COUNSELOR Nina Grigsby MD [address] [place] [address] [place] [address] [facility] Cancer [address] [place] [address] Referral ID Status Reason Start Date Expiration Date Visits Requested Visits Authorized [id number] Pending Review Financial Clearance Required - OON [...] (HCC) Procedures CONSULT TO ONCOLOGY OFFICE/OUTPATIENT [facility] 60-74 MINUTES Aracelis Carrillo, OZZIE.SOLAR PANEL TECHNICIAN [address] [place] [address] Referral ID Status Reason Start Date Expiration Date V isits Requested Visits Authorized [id number] Closed PCP Requested Referral 10/11/2021 10/11/2022 1 [...] lung (HCC) Procedures RAD/ONC CONSULT OFFICE/OUTPATIENT [facility] 60-74 MINUTES Nina Grigsby MD [address] [place] [address] [place] [address] Referral ID Status Reason Start Date Expiration Date V isits Requested Visits Authorized [id number] Closed PCP Requested Referral 10/22/2021 10/22/2022 1 1 Reason Comments Lab Orders Specialty Diagnoses / Procedures Referred By Contac t Referred To Contact Diagnoses Malignant neoplasm of upper lobe of left lung (HCC) Procedures PALONOSETRON HCL CISPLATIN 10 MG INJECTION DIPHENHYDRAMINE HCL INJECTIO INJECTION, PEMETREXED, NOT OTHERWISE SPECIFIED, 10 MG Nina Grigsby MD [address] [place] [address] [place] [address] Kristofer Treat [place] [address] [place] [address] Referral ID Status Reason Start Date Expiration Date V isits Requested Visits Authorized [id number] Authorized 10/22/2021 01/15/2022 4 4 Reason Comments [...] (Carboplatin) Reason Comments [facility]ed [facility]ment [facility] Specialty Diagnoses / Procedures Referred By Ap arteaga [facility] Diagnoses Malignant neoplasm of upper lobe, left bronchus or lung Procedures REFERRAL TO [facility]SEL[facility] Nina Grigsby MD [address] [place] [address] [place] [address] [place] [address] Reason Comments Results hypokalemia Reason Comments Spirometry Specialty Diagnoses / Procedures Referred By Ap arteaga Referred To Contact [facility] Diagnoses Chronic obstructive pulmonary disease, unspecified COPD type (HCC) Lung nodule Procedures LUNG DIFFUSION CAPACITY (DLCO) DIFFUSING CAPACITY Verito Whelan MD [address] [place] [address] [facility] [address] [place] [address] Referral ID Status Reason Start Date Expiration Date V isits Requested Visits Authorized [id number] Closed Auto-Generate d Referral 11/09/2021 10/11/2022 1 1 Specialty Diagnoses / Procedures Referred By Ap Referred To Contact [facility] Diagnoses Chronic obstructive pulmonary disease, unspecified COPD type (HCC) Lung nodule Procedures SPIROMETRY WITH DILATOR IF OBSTRUCTED BRNCDILAT RSPSE SPMTRY PRE&POST-BRNCDILAT ADMN Verito Whelan MD [address] [place] [address] [address] [place] [address] [place] [address] Referral ID Status Reason Start Date Expiration Date V isits Requested Visits Authorized [id number] Closed Auto-Generate d Referral 11/09/2021 10/11/2022 1 [...] of upper lobe of left lung (HCC) Nina Grigsby MD [address] [facility] [place] [address] Kristofer Treat [address] [place] [address] Referral ID Status Reason Start Date Expiration Date V isits Requested Visits Authorized [id number] Authorized 10/16/2022 01/14/2023 99 99 Reason Comments [...] DAY RAD TX Jyoti Limon MD [address] [facility] [place] [address] Jyoti Limon MD [address] [place] [address] [place] [address] Reason Comments Lung Cancer Treatment visit Reason [...] STEM W/O W/CONTRAST MATERIAL Renetta Ponce MD [address] [place] [address] [facility] [place] [address] Referral ID Status Reason Start Date Expiration Date V isits Requested Visits Authorized [id number] Closed Auto-Generate d Referral 10/26/2021 11/18/2021 1 1 Reason Comments Follow Up Pet scan results Specialty Diagnoses / Procedures [facility] To Contact Ent - Otolaryngology Diagnoses Tonsillar mass Procedures CONSULT TO ENT OFFICE/OUTPATIENT [facility] 60-74 MINUTES Nina Grigsby MD [address] [place] [address] [place] [address] Referral ID Status Reason Start Date Expiration Date V isits Requested Visits Authorized [id number] Closed PCP Requested Referral 05/13/2023 05/12/2024 1 [...] CARE OFFICE/OUTPATIENT NEW HIGH MDM 60-74 MINUTES Patricia Miller, PLANOGRAPH OPERATOR.SOLAR PANEL TECHNICIAN [address] [facility] [place] [address] [place] [address] [place] [address] Referral ID Status Reason Start Date Expiration Date V isits Requested Visits Authorized [id number] Closed PCP Requested Referral 05/15/2023 05/14/2024 1 1 Reason Comments Care Coordination TSH Result Reason Comments Nutrition Assessment No show Reason Onset Date Comments Refill Request 10/20/2023 Specialty Diagnoses / Procedures Referred By Contac t Referred To Contact Hematology / HEMATOLOGY/ONCOLOGY Diagnoses Follow-up exam 4 week follow up - Lumakras oral med Procedures OFFICE/OUTPATIENT ESTABLISHED HIGH MDM 40 MIN EST PATIENT Enrique Esposito, PLANOGRAPH OPERATOR.SOLAR PANEL TECHNICIAN [address] [place] [address] Nina Grigsby MD [address] [place] [address] [place] [address] Referral ID Status Reason Start Date Expiration Date V isits Requested Visits Authorized [id number] Authorized 10/20/2023 07/20/2024 99 99 Reason Comments [...] SF MDM 10 MIN EST PATIENT Enrique Esposito L, PLANOGRAPH OPERATOR.SOLAR PANEL TECHNICIAN [address] [place] [address] Nina Grigsby MD [address] [place] [address] [place] [address] Reason Comments Care Coordination Call Request Reason Comments Care Coordination Appointments Specialty Diagnoses / Procedures Referred By Contac t Referred To Contact Hospice & Palliative Medicine / PALLIATIVE MEDICINE Diagnoses 3 month follow up Procedures OFFICE/OUTPATIENT ESTABLISHED HIGH MDM 40 MIN EST PATIENT Estella Fish, PLANOGRAPH OPERATOR.SOLAR PANEL TECHNICIAN [address] [facility] [place] [address] Estella Fish, PLANOGRAPH OPERATOR.SOLAR PANEL TECHNICIAN [address] [place] [address] Reason Comments Orders Reason Comments Research IRB [id number] Case11 z15 Informed Consent Reason Onset Date Comments Simulation Request Form 12/02/2023 Consult Specialty Diagnoses / Procedures Referred By Contac t Referred To Contact Radiation Oncology / RADIATION ONCOLOGY Diagnoses New pain Procedures EST PATIENT NEW PROBLEM Pcp, Suellen, Jyoti Magallanes MD [address] [place] [address] [place] [address] Referral ID Status Reason Start Date Expiration Date V isits Requested Visits Authorized [id number] Authorized 12/02/2023 07/20/2024 99 99 Reason Comments [...] oxygen Reason Comments Care Coordination Pt Update Reason Comments Care Coordination Medication Request Reason Comments Numbness Med Change Request Reason Comments Radiology US Reason Onset Date Comments Refill Request 03/01/2024 Reason Comments Care Coordination Abnormal Neck CT Reason Comments Care Coordination Appointment Question s Reason Comments new pt Specialty Diagnoses / Procedures Referred By Contac t Referred To Contact Pulmonary and Critical Care Medicine / PULMONARY MEDICINE Diagnoses Malignant neoplasm of unspecified part of left bronchus or lung *jose called and requested appointment 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) [C34.92] Chronic obstructive pulmonary disease, unspecified COPD type (HCC) [J44.9] Shortness of breath [R06.02] Procedures OFFICE/OUTPATIENT NEW HIGH MDM 60 MINUTES RI NEW LUNG CANCER Nina Grigsby MD [address] [place] [address] [place] [address] [place] [address] [place] [address] Referral ID Status Reason Start Date Expiration Date Visits Re quested Visits Authorized [id number] Closed 02/20/2024 07/20/2024 1 1 Specialty Diagnoses / Procedures [...] MDM 10 MIN EST PATIENT Enrique Esposito, PLANOGRAPH OPERATOR.SOLAR PANEL TECHNICIAN [address] [place] [address] Nina Grigsby MD [address] 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 [place] [address] Molecular & Functional Imaging [address] [place] [id number] Referral ID Status Reason Start Date Expiration Date V isits Requested Visits Authorized [id number] Closed Auto-Generate d Referral 02/03/2024 03/04/2025 1 1 Goals (unrecognized section and content) Goals may [...] BE BASED ON THE PRIMARY CLINICAL RECORDS. [facility]. provides no warranty or guarantee of the accuracy or completeness of information in this document.
--- NOTE | 2024-03-28 03:24 | XR_ITS ---
The [address] [address] Patient Name: CRISTAL BARRY MRN: [id number] date: 1955 Sex: M Assigned Patient Location: ER Current Patient Location: ER Accession/Order Number: [id number] Exam Date: 03/28/2024 03:58 Report Date: 03/28/2024 04:20 At the request of: MISTI EISENBERG Procedure: XR chest 1V EXAMINATION: XR chest 1V HISTORY: short of breath COMPARISON: XR chest 10/10/2022 FINDINGS: LUNGS: Dense patchy and confluent opacities within lower half of right lung. Left lung is grossly clear. Elevated left hemidiaphragm. VASCULATURE: No increased pulmonary vasculature. PLEURA: No pneumothorax, effusion, or pleural thickening. CARDIAC: No cardiomegaly or cardiac silhouette abnormality. MEDIASTINUM: Prior sternotomy. No abnormal widening. BONES: No fracture or visible bone lesion. OTHER: Negative. XR/XR chest 1V IMPRESSION: 1. Examination slightly limited by patient positioning. 2. Marked right basilar infiltrates suggestive of pneumonia. Electronically authenticated by: TURDY GUTIERREZ Date: 03/28/2024 04:20
--- NOTE | 2024-03-28 03:24 | ECG_ITS ---
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
--- NOTE | 2024-03-28 03:26 | ED_ITS ---
HPI - SOB/Dyspnea General Chief Complaint: Shortness of Breath/Dyspnea Stated Complaint: SOB Time Seen by Provider: 03/28/24 03:20 Source: patient Mode of arrival: walk-in Limitations: no limitations History of Present Illness HPI Narrative: patient presents complaining of worsening shortness of breath for the past week. Has known lung CA and when last seen in the ED 02/2024 was found to have a mass right tonsillar region. No stridor or throat tightness complaint. just short of breath . No chest pain or nausea. RA pulse ox on arrival 75% Related Data Home Medications ?Medication ?Instructions ?Recorded ?Confirmed atorvastatin 40 mg tablet 40 mg PO DAILY 07/05/23 02/20/24 cilostazol 100 mg tablet 100 mg PO BID 07/05/23 02/20/24 clopidogrel 75 mg tablet 75 mg PO DAILY 07/05/23 02/20/24 isosorbide mononitrate 30 mg 30 mg PO DAILY 07/05/23 02/20/24 tablet,extended release 24 hr levothyroxine 75 mcg tablet 75 mcg PO DAILY 07/05/23 02/20/24 metoprolol tartrate 25 mg tablet 25 mg 07/05/23 naloxone 4 mg/actuation nasal spray intranasal 07/05/23 olanzapine 5 mg tablet 5 mg 07/05/23 oxycodone 5 mg tablet 5 mg 07/05/23 sotorasib 320 mg tablet (Lumakras) 960 mg PO 07/05/23 Previous Rx's ?Medication ?Instructions ?Recorded prednisone 20 mg tablet 40 mg (2 x 20 mg) PO DAILY 3 days 03/06/23 #6 tabs BMX solution 10 ml PO Q8H PRN mouth/throat pain 07/05/23 #150 mL amoxicillin 875 mg tablet 875 mg PO Q12H #20 tabs 07/05/23 Allergies Allergy/AdvReac Type Severity Reaction Status Date / Time No Known Drug Allergies Allergy Verified 02/20/24 20:09 Review of Systems ROS Status of ROS 10 or more systems reviewed and unremark able except as noted in history and below PFSH PFSH Social History Smoking status: Former smoker Exam Constitutional Vital Signs, click to edit/add: Last Vital Signs Temp 98 F 03/28/24 03:11 Pulse 103 H 03/28/24 05:40 Resp 14 03/28/24 05:40 BP 125/76 03/28/24 05:30 Pulse Ox 91 L 03/28/24 05:30 O2 Del Method Room Air 03/28/24 05:05 O2 Flow Rate 6 03/28/24 03:38 Common normals: no apparent distress, average body habitus, oriented x3, no limitations, healthy appearing, alert and well nourished HENGA Other: right mass near tongue base Eye Common normals: EOMs intact bilaterally and conjunctivae normal Respiratory Effort & inspection: tachypneic, respiratory distress and uses accessory muscles Auscultation: diminished lung sounds Cardio Rate: tachycardic GI Common normals: Normal to inspection, nondistended, normoactive bowel sounds present Extremity Common normals: normal to inspection and full ROM Neuro Common normals: oriented x3, CN's II-XII intact bilaterally, moves all extremities and no focal motor deficits Psych Appearance: grossly normal Course Vital Signs Vital signs: Vital Signs Temperature 98 F 03/28/24 03:11 Pulse Rate 127 H 03/28/24 03:11 Respiratory Rate 30 H 03/28/24 03:11 Blood Pressure 197/90 H 03/28/24 03:11 Pulse Oximetry 75 L 03/28/24 03:11 Oxygen Delivery Method Room Air 03/28/24 03:11 Temperature 98 F 03/28/24 03:11 Pulse Rate 103 H 03/28/24 05:40 Respiratory Rate 14 03/28/24 05:40 Blood Pressure 125/76 03/28/24 05:30 Pulse Oximetry 91 L 03/28/24 05:30 Oxygen Delivery Method Room Air 03/28/24 05:05 Oxygen Delivery Flow Rate 6 03/28/24 03:38 MDM - SOB/Dyspnea MDM Narrative Medical decision making narrative: patient with known lung CA treated at [facility] . Has known lobulated mass right base of tongue that has not affected his airway. Presents in respiratory distress. Workup positive for pneumonia and PE. treated in the department with solumedrol, duoneb, Rocephin, Zithromax and heparin. Arrived with RA pulse ox 75%. is doing much better now with Pulse ox 91% on 6L NC. No longer in respiratory distress with RR [address] Causey and patient accepted for admission Lab Data Labs: Lab Results 03/28/24 03/28/24 Range/Units 03:30 04:46 WBC 6.9 (4.0-11.0) 10^3/uL RBC 3.94 L (4.70-6.10) 10^6/uL Hgb 12.2 L (14.0-18.0) g/dL Hct 36.9 L (42.0-54.0) % MCV 93.7 (80.0-94.0) fL MCH 31.0 (25.9-34.0) pg MCHC 33.1 (29.9-35.2) g/dL RDW 13.1 (11.0-15.0) % Plt Count 229 (150-450) 10^3/uL MPV 10.7 (9.5-13.5) fL Neut % (Auto) 94.5 H (43.0-75.0) % Lymph % (Auto) 2.2 L (20.5-60.0) % Marin % (Auto) 2.0 (1.7-12.0) % Eos % (Auto) 0.0 L (0.9-7.0) % Baso % (Auto) 0.3 (0.2-2.0) % Neut # (Auto) 6.5 (1.4-6.5) 10^3/uL Lymph # (Auto) 0.2 L (1.2-3.8) 10^3/uL Marin # (Auto) 0.1 L (0.3-0.8) 10^3/uL Eos # (Auto) 0.0 (0.0-0.7) 10^3/uL Baso # (Auto) 0.0 (0.0-0.1) 10^3/uL Abs Immat Gran (auto) 0.07 H (0.00-0.03) 10^3/uL Imm/Tot Granulo (auto) 1.0 H (0.0-0.5) % D-Dimer 12.93 H* (<=0.59) mg/L FEU Sodium 135 L (136-145) mmol/L Potassium 4.0 (3.5-5.1) mmol/L Chloride 100 (98-107) mmol/L Carbon Dioxide 27.5 (21.0-32.0) mmol/L Anion Gap 11.5 BUN 45.0 H (7.0-18.0) mg/dL Creatinine 1.31 H (0.70-1.30) mg/dL Est GFR ( Amer) >60 (>=60) Est GFR (Non-Af Amer) 55 L (>=60) BUN/Creatinine Ratio 34.4 Glucose 147 H (74-106) mg/dL Lactate 2.4 H* (0.4-2.0) mmol/L Calcium 9.2 (8.5-10.1) mg/dL Troponin I High Sens 51.7 (4.0-76.1) pg/mL Imaging Data Chest x-ray: Radiologist's impression: ITS Impressions Chest X-Ray 03/28/24 03:24 IMPRESSION: 1. Examination slightly limited by patient positioning. 2. Marked right basilar infiltrates suggestive of pneumonia. Electronically authenticated by: TRUDY GUTIERREZ Date: 03/28/2024 04:20 Chest CTA 03/28/24 04:12 IMPRESSION: 1. Mild acute pulmonary embolic disease involving the posterior and medial basilar segmental branches of the right lower lobe. No right heart strain. Allowing for motion artifact, no other definite acute pulmonary embolic disease is seen. 2. 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 Dense surrounding patchy consolidation may reflect pneumonia and/or lymphangitic carcinomatosis with additional patchy infiltrates throughout the remainder of the right lung favoring multifocal pneumonia. 3. Right hilar adenopathy with a large 3.5 cm ovoid mass in the left infrahilar region compatible with central mass and/or adenopathy. 4. Fairly severe centrilobular emphysema. 5. Partial left pneumonectomy with loculated pleural fluid and adjacent patchy consolidation favoring posttreatment change in the anterior left upper lung around the level of the aortic arch. 6. Mild subcapsular fluid along the lateral spleen, age and etiology indeterminate. No acute splenic injury identified. Critical results were called by Dr. Mackenzie Trevino to Chidi Torres At 03/28/2024 5:05 AM EDT. Electronically authenticated by: MACKENZIE TREVINO Date: 03/28/2024 05:20 Critical Care Time Critical Care Time Total Critical Care Time: 45 Discharge Plan Discharge Chief Complaint: Shortness of Breath/Dyspnea Clinical Impression: Acute infective exacerbation of chronic obstructive airway disease, Pulmonary emboli, Pneumonia, Lung cancer, Mass of tongue Patient Disposition: Admitted As Inpatient
[2024-03-28] MEDS: IPRATROPIUM/ALBUTEROL SULFATE 3 ML AMPUL.NEB IH ×5 (03:32→23:35)
--- NOTE | 2024-03-28 03:37 | RESP.RT ---
Took patient off of 100% nonrebreather and placed on 6L nasal cannula. Sp02 93%.
[2024-03-28 03:39] LABS: Basophils Percent Auto 0.3 % (0.2-2.0); Hematocrit 36.9 % (42.0-54.0); Hemoglobin 12.2 g/dL (14.0-18.0); Immature Granulocytes Abs Auto 0.07 10^3/uL (0.00-0.03); Lymphocytes Absolute Auto 0.2 10^3/uL (1.2-3.8); Lymphocytes Percent Auto 2.2 % (20.5-60.0); Mean Corpuscular HGB Conc 33.1 g/dL (29.9-35.2); Mean Corpuscular Volume 93.7 fL (80.0-94.0); Mean Platelet Volume 10.7 fL (9.5-13.5); Monocytes Absolute Auto 0.1 10^3/uL (0.3-0.8); Neutrophils Absolute Auto 6.5 10^3/uL (1.4-6.5); Neutrophils Percent Auto 94.5 % (43.0-75.0); Platelet Count 229 10^3/uL (150-450); Red Blood Count 3.94 10^6/uL (4.70-6.10); Red Cell Distribution Width 13.1 % (11.0-15.0); White Blood Count 6.9 10^3/uL (4.0-11.0)
[2024-03-28] MEDS: METHYLPREDNISOLONE SOD SUCC PF 125 MG/2 ML VIAL IVP (03:43)
[2024-03-28 03:56] LABS: Anion Gap 11.5; BUN Creatinine Ratio 34.4; Calcium 9.2 mg/dL (8.5-10.1); Carbon Dioxide 27.5 mmol/L (21.0-32.0); Chloride 100 mmol/L (98-107); Estimated GFR (African America >60 (>=60); Estimated GFR (Non-African Ame 55 (>=60); Glucose 147 mg/dL (74-106); Sodium 135 mmol/L (136-145); Troponin I High Sensitivity 51.7 pg/mL (4.0-76.1)
[2024-03-28 04:00] LABS: D Dimer 12.93 mg/L FEU (<=0.59)
--- NOTE | 2024-03-28 04:12 | CT_ITS ---
The [address] [address] Patient Name: CRISTAL BARRY MRN: [id number] date: 1955 Sex: M Assigned Patient Location: ER Current Patient Location: Accession/Order Number: [id number] Exam Date: 03/28/2024 04:25 Report Date: 03/28/2024 05:20 At the request of: CHIDI EISENBERG Procedure: CT angio chest EXAM: CT angio chest HISTORY: short of breath COMPARISON: Chest x-ray, 04/09/2024. TECHNIQUE: IV contrast enhanced CTA imaging the chest was performed. MIP, MPR and 3-D reconstructions are provided. Dose reduction techniques were achieved by using automated exposure control and/or adjustment of mA and/or kV according to patient size and/or use of iterative reconstruction technique. FINDINGS: There is mild acute pulmonary embolic disease in the posterior and medial basilar subsegmental branches of the right lower lobe extending peripherally. No more central pulmonary embolism is seen. There is no right heart strain. The heart is mildly enlarged. There are fairly severe coronary arterial calcifications. There is no pericardial effusion. There are sternotomy wires for presumed CABG. There are moderate atherosclerotic calcifications in the otherwise unremarkable thoracic aorta and arch vessels. There is no dissection or aneurysm. The thyroid gland is unremarkable. Right hilar adenopathy measures 2.2 x 1.1 cm on image 49 of series 4. Left hilar adenopathy and/or central pulmonary mass measures 3.5 x 2.4 cm on image 54. No retrocrural or axillary adenopathy is seen. There is a lobular mass in the inferior anterior right lower lobe which appears to extend across the major fissure and extend centrally to the hilar level, measuring 4.1 x 2.7 cm on image 65. A second spiculated mass in the anterior right lower lobe lateral to it, measuring 2.6 x 1.6 cm on image 73. A third spiculated mass-like lesion in the lateral right lower lobe measures 1.3 cm on image 70. There is extensive interstitial thickening and infiltrate in the right lower lobe which may reflect pneumonia and/or lymphangitic carcinomatosis. Additional areas of patchy consolidation are seen in the right upper and right middle lobes. There is fairly severe centrilobular emphysema. There is surgical change for partial left pneumonectomy with loculated anterior pleural fluid and peripheral patchy consolidation consistent with posttreatment change in the anterior left lung around the level of the aortic arch. There is mild subcapsular fluid along the lateral spleen. The upper abdomen is otherwise unremarkable. No acute osseous abnormality or suspicious bony lesion is seen. CT/CT angio chest IMPRESSION: 1. Mild acute pulmonary embolic disease involving the posterior and medial basilar segmental branches of the right lower lobe. No right heart strain. Allowing for motion artifact, no other definite acute pulmonary embolic disease is seen. 2. 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 Dense surrounding patchy consolidation may reflect pneumonia and/or lymphangitic carcinomatosis with additional patchy infiltrates throughout the remainder of the right lung favoring multifocal pneumonia. 3. Right hilar adenopathy with a large 3.5 cm ovoid mass in the left infrahilar region compatible with central mass and/or adenopathy. 4. Fairly severe centrilobular emphysema. 5. Partial left pneumonectomy with loculated pleural fluid and adjacent patchy consolidation favoring posttreatment change in the anterior left upper lung around the level of the aortic arch. 6. Mild subcapsular fluid along the lateral spleen, age and etiology indeterminate. No acute splenic injury identified. Critical results were called by Dr. Americo Trevino to Chidi Torres At 03/28/2024 5:05 AM EDT. Electronically authenticated by: AMERICO TREVINO Date: 03/28/2024 05:20
[2024-03-28] MEDS: CEFTRIAXONE 1,000 MG in 0.9 % SODIUM CHLORIDE 50 ML 100 MG IV (04:59)
[2024-03-28 05:22] LABS: Lactate/Lactic Acid 2.4 mmol/L (0.4-2.0)
[2024-03-28] MEDS: AZITHROMYCIN 500 MG in 0.9 % SODIUM CHLORIDE 250 ML 250 MG IV (05:40)
[2024-03-28] MEDS: 0.9 % SODIUM CHLORIDE 1,000 ML 999 ML IV (05:53)
[2024-03-28 06:15] LABS: INR 0.97; Partial Thromboplastin Time 22.5 sec (22.3-36.2); Prothrombin Time 10.3 sec (9.0-11.6)
[2024-03-28] MEDS: HEPARIN SODIUM,PORCINE/D5W 25,000 UNIT/500 ML IV.SOLN 22.045 UNIT IV (06:18)
[2024-03-28] MEDS: HEPARIN SODIUM (PORCINE) 5,000 UNIT/ML VIAL 5000 UNIT IV (06:20)
--- OUTSIDE RECORDS SUMMARY | 2024-03-28 07:49 | XMS_ITS | CCD ---
Author Organization [facility] Care Team Providers Care Drapery Seamstress Name Role Phone UNKNOWN, PROVIDER Admitting Unavailable UNKNOWN, PROVIDER Attending Unavailable CHRISTINA AZUL Referring Unavailable CHRISTINA AZUL Primary Care Unavailable Adalgisa KHOURY, Heba Unavailable Christina Azul MD Primary Care Provider Tip KHOURY, Umdominique Unavailable [phone] Nina Grigsby MD R Unavailable Paul TOWER EXCAVATOR OPERATOR.FOUNTAIN CLERKShery Unavailable [phone] Fredi PAYNE, Denita Unavailable Adalgisa KHOURY, Heba Unavailable Christina Azul MD Primary Care Provider [phone] Tip KHOURY, Umur Unavailable [phone] Seb KHOURY, Nina R Unavailable Paul TOWER EXCAVATOR OPERATOR.FOUNTAIN CLERK Patricia Unavailable Fredi PAYNE, Denita Unavailable [phone] AMRITA Swann Attending Provider NO FAMILY, PHYSICIAN Primary Care Provider Unava ilable Adalgisa KHOURY, Heba Unavailable Christina Azul MD Primary Care Provider [phone] Fredi PAYNE, Denita Unavailable Christina Azul MD Primary Care Provider [phone] Adalgisa KHOURY, Heba Unavailable Christina Azul MD Primary Care Provider Tip KHOURY, Verito Unavailable Seb KHOURY, Nina Naranjo Unavailable Paul TOWER EXCAVATOR OPERATOR.Patricia VILLEDA Unavailable Fredi PAYNE, Denita Unavailable [phone] [employer] Consulting Unavailable ERICKA ., VILMA [...] Unavailable ENGELEMarcella, DR JONATHAN Foster Consulting Unavailable AZUL ., DR CHRISTINA [...] Referring Unavailable MOUKARBEL, JONATHAN Referring Unavailable MOUKARBEL, JONATHNA Attending Unavailable MOUKARBEL, JONATHAN Referring Unavailable MD Christina Azul Primary Care Provider [phone] Kev, OZZIE Guzmán Emergency Provider Rohan ROBLES, Minna Unavailable Unavailable Karla, Dr. Perry Attending Unavailable Unavailable Primary Care Provider Unavailrome Diana MD, Heba Unavailable Fredi RN, Denita Unavailable Claudia TOWER EXCAVATOR OPERATOR.FOUNTAIN CLERK, Estella Kinsey Unavailable Willie PAYNE, Julieth Beatty Unavailable Unavail able Cate TOWER EXCAVATOR OPERATOR.FOUNTAIN CLERK, Enrique Beatty Primary Care Provider Cate TOWER EXCAVATOR OPERATOR.FOUNTAIN CLERK, Enrique Beatty Primary Care Provider NON STAFF Primary Care Provider UnavailMD John Oliveira Emergency Provider [phone] Cate TOWER EXCAVATOR OPERATOR.FOUNTAIN CLERK, Enrique Ramos Primary Care Provider Cate, Enrique [...] DO Abel De La Cruz Emergency Provider [phone] DO Shahbaz Lehman Emergency Provider Jyoti LIMON [...] ENRIQUE RAMOS Primary Care Unavailable AZULCHRISTINA FRY [place] Primary Care Unavailable AZUL, [facility] Primary Care Unavailable NINA GRIGSBY [...] Care Unavailable NINA GRIGSBY Referring Unavailable AZULCHRISTINA EDGRAHAM Primary Care Unavailable PATRICIA MILLER Attending Unavailable WILMA [facility] Primary Care Unavailable Jyoti LIMON [...] Unavailable AZUL, CHRISTINA EDWARD Primary Care Unavailable NNIA GRIGSBY Referring Unavailable Jyoti LIMON Attending Unavailable AZUL, CHRISTINA EDWARD Primary Care Unavailable YUSEF PANDYA Referring Unavailable CATE, ENRIQUE RITA Primary Care Unavailable PATRICIA MILLER Referring Unavailable AZUL, CHRISTINA EDGRAHAM Primary Care Unavailable AZUL, CHRISTINA EDWARD Primary Care Unavailable NINA GRIGSBY Referring Unavailable CATE, ENRIQUE RITA Primary Care Unavailable Jyoti LIMON Attending Unavailable AZUL, CHRISTINA EDWARD Primary Care Unavailable NYDIA PARKS Attending Unavailable AZUL, CHRISTINA EDWARD Primary Care Unavailable CATE, ENRIQUE RITA Primary Care Unavailable Jyoti LIMON Attending Unavailable Jyoti LIMON Referring Unavailable CATE, ENRQIUE RITA Primary Care Unavailable Jyoti LIMON Attending Unavailable AZUL, CHRISTINA EDGRAHAM Primary Care Unavailable PATRICIA MILLER Attending Unavailable AZUL, CHRISTINA EDWARD Primary Care Unavailable AZUL, CHRISTINA EDWARD Primary Care Unavailable Jyoti LIMON Attending Unavailable AZUL, CHRISTINA EDWARD Primary Care Unavailable AZUL, CHRISTINA EDWARD Primary Care Unavailable AZUL, CHRISTINA EDWARD Primary Care Unavailable NINA GRIGSBY Attending Unavailable AZUL, CHRISTINA EDGRAHAM Primary Care Unavailable AZUL, CHRISTINA EDWARD Primary [...] Unavailable NINA GRIGSBY Referring Unavailable CHRISTINA AZUL [place] Primary Care Unavailable NINA GRIGSBY Referring Unavailable AZUL, [facility] Primary Care Unavailable NINA GRIGSBY Referring Unavailable AZUL [facility] Primary Care Unavailable AZUL [facility] Primary Care Unavailable NINA GRIGSBY Referring Unavailable AZUL [facility] Primary Care Unavailable NINA GRIGSBY Attending Unavailable ESTELLA FISH Attending Unavailabl e AZUL [facility] Primary Care Unavailable AZUL [facility] Primary Care Unavailable NINA GRIGSBY Referring Unavailable WILMA [facility] Primary Care Unavailable DAMON TSE Attending Unavailable MD Deborah Lamar Emergency Provider MD Jair Nichols Admit Provider MD Jair Nichols Attending Provider [phone] DO Davion Allen Other Provider NON STAFF [...] Drug Class(es) Dates Sig (Normalized) Sig (Original) [id number] 200 actuat albuterol 0.09 mg/actuat metered dose [...] for 120 days. Take 1 capsule by [facility] three times a day 24 hr isosorbide [...] mouth once daily. Take 1 tablet by [facility] once daily for 7 days. Take 1 tablet by [facility] once daily for 10 days. levothyroxine [...] Comment on above: Take 1 tablet by [facility] twice daily. traZODone hydrochloride 50 mg [...] Start: 12-24-2022 take 2 tablets by mo [facility] once daily, then take 1 tablet by [...] for 4 days. TAKE 2 TABLETS by [facility] today, THEN take 1 TABLET once a [...] up to 15 days. polyethylene glycol 3350 00640 mg powder for oral solution (4 sources) [...] TAKE 1 TABLET Take 1 tablet by gabe [facility] once daily. 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; Translations: [USP CURRENT USE OF ASPIRIN] Onset: 3 Episodic Other aftercare (1 source) care home (current) use of antithrombotics/antiplate lets; Translations: [USP ANTITHROMBOT/ANTIPLATLETS ] Onset: 3 Episodic Other aftercare (1 source) Other prison (current) drug therapy; Translations: [[employer] CURRENT DRUG THERAPY] Onset: 3 Episodic Other aftercare (3 sources) Under care of palliative care physician; Translations: [Encounter for palliative care] 05-16-2023 Episodic Other aftercare (2 sources) Drug therapy finding; Translations: [care home (current) use of opiate analgesic] 06-13-2023 Episodic [...] ALT [Catalytic activity/Vol] 9 U/L Normal 7-52 [facility] Comment on above: Performed By: #### C BC, CMP, MG ####[place] [id number] Albumin [Mass/volume] in Ser um or Plasma by Bromocresol green (BCG) dye binding methoOrdered By: Jair Nichols on 03-20-2024 Albumin BCG dye [Mass/Vol] 3.3 g/dL Low 3.5-5.7 [facility] Alkaline phosphatase [Enzyma tic activity/volume] in Serum or PlasmaOrdered By: Jair Nichols on 03-20-2024 ALP [Catalytic activity/Vol] 46 U/L Normal 34-104 [facility] Comment on above: Performed By: #### C BC, CMP, MG ####[address] Aspartate aminotransferase [ Enzymatic activity/volume] in Serum or PlasmaOrdered By: Jair Nichols on 03-20-2024 AST [Catalytic activity/Vol] 11 U/L Low 13-39 [facility] Comment on above: Performed By: #### C BC, CMP, MG ####[address] Automated basophil %Ordered By: Jair Nichols on 03-20-2024 Basophils/100 WBC (Bld) 0.2 % Normal . [facility] Comment on above: Performed By: #### C BC, CMP, MG ####[place] [address] Automated basophil countOrde red By: Jair Nichols on 03-20-2024 Basophils (Bld) [#/Vol] 0.0 10*3/uL Normal 0.0-0.2 [facility] Comment on above: Result Comment: PERF ORMED BY: [facility] [address] [place] [address] PATHOLOGIST SATELLITE INSTALLATION TECHNICIAN ALEX CROWLEY M.D. Performed By: #### C BC, CMP, MG ####[address] Automated blood monocyte cou ntOrdered By: Jair Magdalena on 03-20-2024 Monocytes (Bld) [#/Vol] 0.5 10*3/uL Normal 0.0-0.8 [facility] Comment on above: Performed By: #### C BC, CMP, MG ####[address] Automated eosinophil %Ordere d By: Jair Magdalena on 03-20-2024 Eosinophils/100 WBC (Bld) 0.2 % Normal . [facility] Comment on above: Performed By: #### C BC, CMP, MG ####[address] Automated eosinophil countOr dered By: Jair Magdalena on 03-20-2024 Eosinophils (Bld) [#/Vol] 0.0 10*3/uL Normal 0.0-0.45 [facility] Comment on above: Performed By: #### C BC, CMP, MG ####[address] Automated monocyte %Ordered By: Jair Magdalena on 03-20-2024 Monocytes/100 WBC (Bld) 8.7 % Normal . [facility] Comment on above: Performed By: #### C BC, CMP, MG ####[address] Automated neutrophil %Ordere d By: Jair Magdalena on 03-20-2024 Neutrophils/100 WBC (Bld) 82.3 % Normal . [facility] Comment on above: Performed By: #### C BC, CMP, MG ####[address] Bilirubin.total [Mass/volume ] in Serum or PlasmaOrdered By: Jair Magdalena on 03-20-2024 Bilirubin [Mass/Vol] 0.6 mg/dL Normal 0.3-1.0 [facility] Comment on above: Performed By: #### C BC, CMP, MG ####[address] Calcium [Mass/volume] in Ser um or PlasmaOrdered By: Jair Magdalena on 03-20-2024 Calcium [Mass/Vol] 8.8 mg/dL Normal 8.6-10.3 [facility] Comment on above: Performed By: #### C BC, CMP, MG ####[address] Carbon dioxide, total [Moles /volume] in Serum or PlasmaOrdered By: Jairprudence Nichols on 03-20-2024 CO2 [Moles/Vol] 25.0 mmol/L Normal 21.0-31.0 [facility] Comment on above: Performed By: #### C BC, CMP, MG ####[address] Chloride [Moles/volume] in S juanpablo or PlasmaOrdered By: Jair Magdalena on 03-20-2024 Chloride [Moles/Vol] 110 mmol/L High 98-107 [facility] Comment on above: Performed By: #### C BC, CMP, MG ####[place] [id number] [facility] Complete Blood Count Auto Di ffon 03-20-2024 Mean Corpuscular HGB Conc 32.8 g/dL Normal 32.5-35.6 [facility] Comment on above: Performed By: #### C BC, CMP, MG ####[place] [id number] [facility] NRBC% 0.0 /100{WBC} Normal 0-0.5 [facility] Comment on above: Performed By: #### C BC, CMP, MG ####[place] [address] [place] [id number] [facility] Comprehensive Metabolic Pane tim 03-20-2024 Albumin [Mass/Vol] 3.3 g/dL Low 3.5-5.7 [facility] Comment on above: Performed By: #### C BC, CMP, MG ####[address] Creatinine Clr Calc Pharmacy 58.50 Normal [facility] Comment on above: Performed By: #### C BC, CMP, MG ####[address] GFR/1.73 sq M.predicted MDRD (S/P/Bld) [Vol rate/Area] mL/min/{1.73_m2} Normal [facility] Comment on above: Performed By: #### C BC, CMP, MG ####[address] Creatinine [Mass/volume] in Serum or PlasmaOrdered By: Jair Nichols on 03-20-2024 Creatinine [Mass/Vol] 0.87 mg/dL Normal 0.70-1.30 [facility] Comment on above: Performed By: #### C BC, CMP, MG ####[address] Erythrocyte distribution wid th [Ratio] by Automated countOrdered By: Jair Nichols on 03-20-2024 Erythrocyte distribution width (RBC) [Ratio] 13.8 % Normal 12.0-14.8 [facility] Comment on above: Performed By: #### C BC, CMP, MG ####[address] Erythrocytes [#/volume] in B lood by Automated countOrdered By: Jair Nichols on 03-20-2024 RBC (Bld) [#/Vol] 3.54 10*6/uL Low 3.90-5.60 [facility] Comment on above: Performed By: #### C BC, CMP, MG ####[place] [address] [place] [id number] [facility] Glucose [Mass/volume] in Ser um or PlasmaOrdered By: Jair Nichols on 03-20-2024 Glucose [Mass/Vol] 101 mg/dL High 70-100 [facility] Comment on above: ADA recommended refe rence rangeRandom Glucose Reference Range is dependent on time and content of last meal. Glucose of more than 200 mg/dL in a nonstressed, ambulatory subject supports the diagnosis of Diabetes Mellitus. Result Comment: [place] om Glucose Reference Range is dependent on time and content of last meal. Glucose of more than 200 mg/dL in a nonstressed, ambulatory subject supports the diagnosis of Diabetes Mellitus. ADA recommended reference range Performed By: #### C TEGAN BELCHER, MG ####[place] [address] [place] [id number] [facility] Hematocrit [Volume Fraction] of Blood by Automated countOrdered By: Jair Nichols on 03-20-2024 Hematocrit (Bld) [Volume fraction] 33.2 % Low 38.8-50.0 [facility] Comment on above: Performed By: #### Kyara BELCHER CMP, MG ####[place] [id number] [facility] Hemoglobin [Mass/volume] in BloodOrdered By: Jair Nichols on 03-20-2024 Hemoglobin (Bld) [Mass/Vol] 10.9 g/dL Low 13.0-17.0 [facility] Comment on above: Performed By: #### Kyara BELCHER CMP, MG ####[place] [id number] [facility] Leukocytes [#/volume] correc nani for nucleated erythrocytes in Blood by Automated counOrdered By: Jair Nichols on 03-20-2024 WBC corrected for nucl RBC Auto (Bld) [#/Vol] 5.8 10*3/uL 4.1-10.5 [facility] Leukocytes [#/volume] in Blo od by Automated countOrdered By: Jair Nichols on 03-20-2024 WBC (Bld) [#/Vol] 5.8 10*3/uL Normal 4.1-10.5 [facility] Comment on above: Performed By: #### C BC, CMP, MG ####[place] [address] Lymphocytes [#/volume] in Bl ood by Automated countOrdered By: Jair Nichols on 03-20-2024 Lymphocytes (Bld) [#/Vol] 0.5 10*3/uL Low 1.00-4.8 [facility] Comment on above: Performed By: #### C BC, CMP, MG ####[address] Lymphocytes/100 leukocytes i n Blood by Automated countOrdered By: Jair Nichols on 03-20-2024 Lymphocytes/100 WBC (Bld) 8.6 % Normal . [facility] Comment on above: Performed By: #### C BC, CMP, MG ####[address] MCH [Entitic mass] by Automa nani countOrdered By: Jair Nichols on 03-20-2024 MCH (RBC) [Entitic mass] 30.7 pg Normal 27.5-35.2 [facility] Comment on above: Performed By: #### C BC, CMP, MG ####[address] MCHC Auto (RBC) [Mass/Vol]Or dered By: Jair Nichols on 03-20-2024 MCHC (RBC) [Mass/Vol] 32.8 g/dL 32.5-35.6 [facility] MCV [Entitic volume] by Auto mated countOrdered By: Jair Nichols on 03-20-2024 MCV (RBC) [Entitic vol] 93.6 fL Normal 83.5-101 [facility] Comment on above: Performed By: #### C BC, CMP, MG ####[address] Magnesium [Mass/volume] in S junapablo or PlasmaOrdered By: Jair Nichols on 03-20-2024 Magnesium [Mass/Vol] 1.8 mg/dL Low 1.9-2.7 [facility] Comment on above: Result Comment: PERF ORMED BY: [facility] [address] [place] [address] PATHOLOGIST SATELLITE INSTALLATION TECHNICIAN ALEX CROWLEY M.D. Performed By: #### C BC, CMP, MG ####[place] [address] Neutrophils [#/volume] in Bl ood by Automated countOrdered By: Jair Nichols on 03-20-2024 Neutrophils (Bld) [#/Vol] 4.8 10*3/uL Normal 1.8-7.7 [facility] Comment on above: Performed By: #### C BC, CMP, MG ####[place] [address] No Panel InformationOrdered By: Jair Nichols on 03-20-2024 Estimated GFR (CKD-EPI) > 60.0 mL/Min [facility] Creatinine Clearance (Chem 58.50 [facility] Nucleated erythrocytes [Pres ence] in Blood by Automated countOrdered By: Jair Nichols on 03-20-2024 Nucleated RBC Auto Ql (Bld) 0.0 /100{WBC} 0-0.5 [facility] Platelet mean volume [Entiti c volume] in Blood by Automated countOrdered By: Jair Nichols on 03-20-2024 Platelet mean volume (Bld) [Entitic vol] 9.5 fL Normal 6.6-10.1 [facility] Comment on above: Performed By: #### C BC, CMP, MG ####[place] [address] Platelets [#/volume] in Bloo d by Automated countOrdered By: Jair Nichols on 03-20-2024 Platelets (Bld) [#/Vol] 236 10*3/uL Normal 150-450 [facility] Comment on above: Performed By: #### C BC, CMP, MG ####[address] Potassium [Moles/volume] in Serum or PlasmaOrdered By: Jair Magdalena on 03-20-2024 Potassium [Moles/Vol] 4.1 mmol/L Normal 3.5-5.1 [facility] Comment on above: Performed By: #### C BC, CMP, MG ####[address] Protein [Mass/volume] in Ser um or PlasmaOrdered By: Jair Magdalena on 03-20-2024 Protein [Mass/Vol] 6.3 g/dL Low 6.4-8.9 [facility] Comment on above: Performed By: #### C BC, CMP, MG ####[address] Serum globulin measurement b y calculation (mass/volume)Ordered By: Jair Magdalena on Globulin (S) [Mass/Vol] 3.0 g/dL Normal [facility] Comment on above: Performed By: #### C BC, CMP, MG ####[address] Serum or plasma albumin/glob ulin mass ratioOrdered By: Jair Magdalena on 03-20-2024 Albumin/Globulin [Mass ratio] 1.1 {ratio} [facility] Comment on above: Performed By: #### C BC, CMP, MG ####[address] Serum or plasma anion gap de terminationOrdered By: Jair Magdalena on 03-20-2024 Anion gap [Moles/Vol] 9.1 mmol/L Normal 6.0-15.0 [facility] Comment on above: Performed By: #### C BC, CMP, MG ####[address] Sodium [Moles/volume] in Ser um or PlasmaOrdered By: Jair Magdalena on 03-20-2024 Sodium [Moles/Vol] 140 mmol/L Normal 136-145 [facility] Comment on above: Performed By: #### C BC, CMP, MG ####[facility] Urea nitrogen [Mass/volume] in Serum or PlasmaOrdered By: Jair Nichols on 03-20-2024 Urea nitrogen [Mass/Vol] 20 mg/dL Normal 02-11 [facility] Comment on above: Performed By: #### C BC, CMP, MG ####[facility] [place] [id number] [facility] Activated partial thrombopla stin time (aPTT) in platelet poor plasma by coagulation aOrdered By: Shahbaz Lehman on 03-19-2024 aPTT Coag (PPP) [Time] 29.4 s 25.1-36.5 [facility] Comment on above: A hematocrit value g reater than 55% may lead to inaccurate results in coagulation testing. Patients having hematocrit values >55% require a special collection tube for coagulation studies. Please contact the laboratory at [phone] for redraw instructions. Alanine aminotransferase [En zymatic activity/volume] in Serum or PlasmaOrdered By: Shahbaz Lehman on 03-19-2024 ALT [Catalytic activity/Vol] 12 U/L Normal 7-52 [facility] Comment on above: Performed By: #### P T, PTT, CMP, MG, TSH3, CBC, HS TROP #### [facility] [address] [place] [id number] [place] Albumin [Mass/volume] in Ser um or Plasma by Bromocresol green (BCG) dye binding methoOrdered By: Shahbaz Lehman on 03-19-2024 Albumin BCG dye [Mass/Vol] 3.7 g/dL 3.5-5.7 [facility] Alkaline phosphatase [Enzyma tic activity/volume] in Serum or PlasmaOrdered By: Shahbaz Lehman on 03-19-2024 ALP [Catalytic activity/Vol] 47 U/L Normal 34-104 [facility] Comment on above: Performed By: #### P T, PTT, CMP, MG, TSH3, CBC, HS TROP #### [address] Aspartate aminotransferase [ Enzymatic activity/volume] in Serum or PlasmaOrdered By: Shahbaz Lehman on 03-19-2024 AST [Catalytic activity/Vol] 16 U/L Normal 13-39 [facility] Comment on above: Performed By: #### P T, PTT, CMP, MG, TSH3, CBC, HS TROP #### [address] Automated basophil %Ordered By: Shahbaz Lehman on 03-19-2024 Basophils/100 WBC (Bld) 0.5 % Normal . [facility] Comment on above: Performed By: #### P T, PTT, CMP, MG, TSH3, CBC, HS TROP #### [address] Automated basophil countOrde red By: Shahbaz Lehman on 03-19-2024 Basophils (Bld) [#/Vol] 0.0 10*3/uL Normal 0.0-0.2 [facility] Comment on above: Result Comment: PERF ORMED BY: [place] [address] PATHOLOGIST SATELLITE INSTALLATION TECHNICIAN ALEX CROWLEY M.D. Performed By: #### P T, PTT, CMP, MG, TSH3, CBC, HS TROP #### [address] Automated blood monocyte cou ntOrdered By: Shahbaz Lehman on 03-19-2024 Monocytes (Bld) [#/Vol] 0.6 10*3/uL Normal 0.0-0.8 [facility] Comment on above: Performed By: #### P T, PTT, CMP, MG, TSH3, CBC, HS TROP #### [address] Automated eosinophil %Ordere d By: Shahbaz Lehman on 03-19-2024 Eosinophils/100 WBC (Bld) 1.2 % Normal . [facility] Comment on above: Performed By: #### P T, PTT, CMP, MG, TSH3, CBC, HS TROP #### [facility] [address] Automated eosinophil countOr dered By: Shahbaz Lehman on 03-19-2024 Eosinophils (Bld) [#/Vol] 0.1 10*3/uL Normal 0.0-0.45 [facility] Comment on above: Performed By: #### P T, PTT, CMP, MG, TSH3, CBC, HS TROP #### [facility] [address] Automated monocyte %Ordered By: Shahbaz Lehman on 03-19-2024 Monocytes/100 WBC (Bld) 8.4 % Normal . [facility] Comment on above: Performed By: #### P T, PTT, CMP, MG, TSH3, CBC, HS TROP #### [address] Automated neutrophil %Ordere d By: Shahbaz Lehman on 03-19-2024 Neutrophils/100 WBC (Bld) 79.6 % Normal . [facility] Comment on above: Performed By: #### P T, PTT, CMP, MG, TSH3, CBC, HS TROP #### [address] Bilirubin Test strip Ql (U)O rdered By: Shahbaz Lehman on 03-19-2024 Bilirubin Ql (U) Negative Negative [facility] Bilirubin.total [Mass/volume ] in Serum or PlasmaOrdered By: Shahbaz Lehman on 03-19-2024 Bilirubin [Mass/Vol] 0.4 mg/dL Normal 0.3-1.0 [facility] Comment on above: Performed By: #### P T, PTT, CMP, MG, TSH3, CBC, HS TROP #### [address] head/brain wo [place] 03-19 CT head/brain wo [facility] [place] [address] CT Scan Report Signed Patient: Cristal Gu MR#: [id number] : 1955 Acct:[id number] Age/Sex: 69 / M ADM Date: 03/19/24 Loc: ER Room: Type: [facility] ER Attending Dr: Copies to: Shahbaz Lehman [...] Mark Jr., D.OJudi03/19/2024 11:52 AM Dictation Location: [place] [address] Transcribed By: [facility] 03/19/24 1152 Dictated By: Star Mark Jr, DO 03/19/24 1149 Signed By: 03/19/24 1152 Normal [facility] Calcium [Mass/volume] in Ser um or PlasmaOrdered By: Shahbaz Lehman on 03-19-2024 Calcium [Mass/Vol] 8.9 mg/dL Normal 8.6-10.3 [facility] Comment on above: Performed By: #### P T, PTT, CMP, MG, TSH3, CBC, HS TROP #### [facility] [address] [place] [address] Capillary blood glucose jerson urement by glucometer (mass/volume)Ordered By: Shahbaz Lehman on 03-19-2024 Glucose [Mass/Vol] 85 mg/dL Normal [facility] Comment on above: Random Glucose Refer ence Range is dependent on time and content of last meal. Glucose of more than 200 mg/dL in a nonstressed, ambulatory subject supports the diagnosis of Diabetes Mellitus. Result Comment: [facility] Glucose Reference Range is dependent on time and content of last meal. Glucose of more than 200 mg/dL in a nonstressed, ambulatory subject supports the diagnosis of Diabetes Mellitus. PERFORMED BY: [place] [address] PATHOLOGIST [employer]ATELLITE INSTALLATION TECHNICIAN ALEX CROWLEY M.D. Performed By: #### G LUKEITH ####Point of Care testing, Carbon dioxide, total [Moles /volume] in Serum or PlasmaOrdered By: Shahbaz Lehman on 03-19-2024 CO2 [Moles/Vol] 28.6 mmol/L Normal 21.0-31.0 [facility] Comment on above: Performed By: #### P T, PTT, CMP, MG, TSH3, CBC, HS TROP #### [address] Chloride [Moles/volume] in S juanpablo or PlasmaOrdered By: Shahbaz Lehman on 03-19-2024 Chloride [Moles/Vol] 102 mmol/L Normal 98-107 [facility] Comment on above: Performed By: #### P T, PTT, CMP, MG, TSH3, CBC, HS TROP #### [address] Color of Urine by AutoOrdere d By: Shahbaz Lehman on 03-19-2024 Color (U) Light-yellow Normal Yellow [facility] Comment on above: Order Comment: Name Collection Type:: Clean-Voided Midstream Performed By: #### U A ####[address] Complete Blood Count Auto Di ffon 03-19-2024 Mean Corpuscular HGB Conc 33.3 g/dL Normal 32.5-35.6 [facility] Comment on above: Performed By: #### P T, PTT, CMP, MG, TSH3, CBC, HS TROP #### [place] [address] [place] Monocytes/100 WBC (Bld) 19.30 % Normal 0.00-20.00 [facility] Comment on above: Performed By: #### P T, PTT, CMP, MG, TSH3, CBC, HS TROP #### [address] NRBC% 0.0 /100{WBC} Normal 0-0.5 [facility] Comment on above: Performed By: #### P T, PTT, CMP, MG, TSH3, CBC, HS TROP #### [address] Comprehensive Metabolic Pane tim 03-19-2024 Albumin [Mass/Vol] 3.7 g/dL Normal 3.5-5.7 [facility] Comment on above: Performed By: #### P T, PTT, CMP, MG, TSH3, CBC, HS TROP #### [address] Creatinine Clr Calc Pharmacy 50.94 Normal [facility] Comment on above: Performed By: #### P T, PTT, CMP, MG, TSH3, CBC, HS TROP #### [address] GFR/1.73 sq M.predicted MDRD (S/P/Bld) [Vol rate/Area] mL/min/{1.73_m2} Normal [facility] Comment on above: Performed By: #### P T, PTT, CMP, MG, TSH3, CBC, HS TROP #### [address] Creatinine [Mass/volume] in Serum or PlasmaOrdered By: Shahbaz Lehman on 03-19-2024 Creatinine [Mass/Vol] 1.04 mg/dL Normal 0.70-1.30 [facility] Comment on above: Performed By: #### P T, PTT, CMP, MG, TSH3, CBC, HS TROP #### [address] ECG 12 lead ECGon 03-19-2024 ECG 12 lead ECG [facility] Main [place] [address] [place] [address] Electrocardiograph Report Signed Patient: Cristal Gu MR#: [id number] : 1955 Acct:[id number] Age/Sex: 69 / M ADM Date: 03/19/24 Loc: Room: [address] [place] [address] Type: ADM INOo Attending Dr: Jair Nichols [...] Lateral leads Confirmed by Deborah Lamar MD ([id number]) on 03/19/2024 11:02:32 PM Referred By: Electronically Signed By: Deborah Lamar MD Transcribed By: MUS Signed By Deborah Lamar MD 02/20 Normal [facility] ECG 12 lead ECG [facility] Main [place] [address] [place] [address] Electrocardiograph Report Signed Patient: Cristal Gu MR#: [id number] : 1955 Acct:[id number] Age/Sex: 69 / M ADM Date: 03/19/24 Loc: ER Room: Type: [facility] ER Attending Dr: Ordering Provider: Shahbaz Lehman [...] Sinus rhythm Confirmed by Shahbaz LEHMAN DO ([id number]) on 03/19/2024 4:01:20 PM Referred By: Electronically Signed By: Shahbaz LEHMAN DO Transcribed By: MUS Signed By Shahbaz Lehman DO 0 03/19/24 1601 Normal [facility] Erythrocyte distribution wid th [Ratio] by Automated countOrdered By: Shahbaz Lehman on 03-19-2024 Erythrocyte distribution width (RBC) [Ratio] 13.7 % Normal 12.0-14.8 [facility] Comment on above: Performed By: #### P T, PTT, CMP, MG, TSH3, CBC, HS TROP #### [facility] [address] [id number] [facility] Erythrocytes [#/volume] in B lood by Automated countOrdered By: Shahbaz Lehman on 03-19-2024 RBC (Bld) [#/Vol] 3.61 10*6/uL Low 3.90-5.60 [facility] Comment on above: Performed By: #### P T, PTT, CMP, MG, TSH3, CBC, HS TROP #### [facility] [address] [id number] [place] Glucose [Mass/volume] in Ser um or PlasmaOrdered By: Shahbaz Lehman on 03-19-2024 Glucose [Mass/Vol] 86 mg/dL Normal 70-100 [facility] Comment on above: ADA recommended refe rence rangeRandom Glucose Reference Range is dependent on time and content of last meal. Glucose of more than 200 mg/dL in a nonstressed, ambulatory subject supports the diagnosis of Diabetes Mellitus. Result Comment: [place] [facility] Glucose Reference Range is dependent on time and content of last meal. Glucose of more than 200 mg/dL in a nonstressed, ambulatory subject supports the diagnosis of Diabetes Mellitus. ADA recommended reference range Performed By: #### P T, PTT, CMP, MG, TSH3, CBC, HS TROP #### [facility] [address] [id number] [place] Glucose [Mass/volume] in Uri ne by Test stripOrdered By: Shahbaz Lehman on 03-19-2024 Glucose Test strip (U) [Mass/Vol] Normal mg/dL Normal [facility] Hematocrit [Volume Fraction] of Blood by Automated countOrdered By: Shahbaz Lehman on 03-19-2024 Hematocrit (Bld) [Volume fraction] 34.1 % Low 38.8-50.0 [facility] Comment on above: Performed By: #### P T, PTT, CMP, MG, TSH3, CBC, HS TROP #### [facility] [address] Hemoglobin Test strip Ql (U) Ordered By: Shahbaz Lehman on 03-19-2024 Hemoglobin Ql (U) Negative Negative [facility] Hemoglobin [Mass/volume] in BloodOrdered By: Shahbaz Lehman on 03-19-2024 Hemoglobin (Bld) [Mass/Vol] 11.3 g/dL Low 13.0-17.0 [facility] Comment on above: Performed By: #### P T, PTT, CMP, MG, TSH3, CBC, HS TROP #### [address] INR in Platelet poor plasma by Coagulation assayOrdered By: Shahbaz Lehman on 03-19-2024 INR Coag (PPP) [Relative time] 1.0 {INR} Normal [facility] Comment on above: INR Therapeutic Rang e [...] CMP, MG, TSH3, CBC, HS TROP #### [address] Ketones [Presence] in Urine by Test stripOrdered By: Shahbaz Lehman on 03-19-2024 Ketones Ql (U) Negative Normal Negative [facility] Comment on above: Order Comment: Name Collection Type:: Clean-Voided Midstream Performed By: #### U A ####[address] Leukocyte esterase [Presence ] in Urine by Test stripOrdered By: Shahbaz Lehman on 03-19-2024 Leukocyte esterase Test strip Ql (U) Negative Normal Negative [facility] Comment on above: Order Comment: Name Collection Type:: Clean-Voided Midstream Performed By: #### U A ####[address] Leukocytes [#/volume] correc nani for nucleated erythrocytes in Blood by Automated counOrdered By: Shahbaz Lehman on 03-19-2024 WBC corrected for nucl RBC Auto (Bld) [#/Vol] 7.1 10*3/uL 4.1-10.5 [facility] Leukocytes [#/volume] in Blo od by Automated countOrdered By: Shahbaz Lehman on 03-19-2024 WBC (Bld) [#/Vol] 7.1 10*3/uL Normal 4.1-10.5 [facility] Comment on above: Performed By: #### P T, PTT, CMP, MG, TSH3, CBC, HS TROP #### [place] [address] [place] Lymphocytes [#/volume] in Bl ood by Automated countOrdered By: Shahbaz Lehman on 03-19-2024 Lymphocytes (Bld) [#/Vol] 0.7 10*3/uL Low 1.00-4.8 [facility] Comment on above: Performed By: #### P T, PTT, CMP, MG, TSH3, CBC, HS TROP #### [facility] [address] [place] [address] [place] Lymphocytes/100 leukocytes i n Blood by Automated countOrdered By: Shahbaz Lehman on 03-19-2024 Lymphocytes/100 WBC (Bld) 10.3 % Normal . [facility] Comment on above: Performed By: #### P T, PTT, CMP, MG, TSH3, CBC, HS TROP #### [facility] [address] [place] [address] [place] MCH [Entitic mass] by Automa nani countOrdered By: Shahbaz Lehman on 03-19-2024 MCH (RBC) [Entitic mass] 31.4 pg Normal 27.5-35.2 [facility] Comment on above: Performed By: #### P T, PTT, CMP, MG, TSH3, CBC, HS TROP #### [facility] [address] MCHC Auto (RBC) [Mass/Vol]Or dered By: Shahbaz Lehman on 03-19-2024 MCHC (RBC) [Mass/Vol] 33.3 g/dL 32.5-35.6 [facility] MCV [Entitic volume] by Auto mated countOrdered By: Shahbaz Lehman on 03-19-2024 MCV (RBC) [Entitic vol] 94.3 fL Normal 83.5-101 [facility] Comment on above: Performed By: #### P T, PTT, CMP, MG, TSH3, CBC, HS TROP #### [facility] [address] Magnesium [Mass/volume] in S juanpablo or PlasmaOrdered By: Shahbaz Lehman on 03-19-2024 Magnesium [Mass/Vol] 1.6 mg/dL Low 1.9-2.7 [facility] Comment on above: Performed By: #### P T, PTT, CMP, MG, TSH3, CBC, HS TROP ####[facility] [address] Monocyte distribution width [Entitic volume] in Blood by AutomatedOrdered By: Shahbaz Lehman on 03-19-2024 Monocyte distribution width Auto (Bld) [Entitic vol] 19.30 % 0.00-20.00 [facility] Neutrophils [#/volume] in Bl ood by Automated countOrdered By: Shahbaz Lehman on 03-19-2024 Neutrophils (Bld) [#/Vol] 5.7 10*3/uL Normal 1.8-7.7 [facility] Comment on above: Performed By: #### P T, PTT, CMP, MG, TSH3, CBC, HS TROP #### [facility] [address] [place] [address] Nitrite Test strip Ql (U)Ord ered By: Shahbaz Lehman on 03-19-2024 Nitrite Ql (U) Negative Negative [facility] No Panel InformationOrdered By: Shahbaz Lehman on 03-19-2024 Estimated GFR (CKD-EPI) > 60.0 mL/Min [facility] Creatinine Clearance (Chem 50.94 [facility] Nucleated erythrocytes [Pres ence] in Blood by Automated countOrdered By: Shahbaz Lehman on 03-19-2024 Nucleated RBC Auto Ql (Bld) 0.0 /100{WBC} 0-0.5 [facility] Partial Thromboplastin Timeo n 03-19-2024 aPTT Coag (Bld) [Time] 29.4 s Normal 25.1-36.5 [facility] Comment on above: Result Comment: A he matocrit value greater than 55% may lead to inaccurate results in coagulation testing. Patients having hematocrit values >55% require a special collection tube for coagulation studies. Please contact the laboratory at [phone] for redraw instructions. PERFORMED BY: [address] [place] [address] PATHOLOGIST [employer]ATELLITE INSTALLATION TECHNICIAN ALEX CROWLEY M.D. Performed By: #### P T, PTT, CMP, MG, TSH3, CBC, HS TROP #### [facility] [address] [place] [address] Platelet mean volume [Entiti c volume] in Blood by Automated countOrdered By: Shahbaz Lehman on 03-19-2024 Platelet mean volume (Bld) [Entitic vol] 9.2 fL Normal 6.6-10.1 [facility] Comment on above: Performed By: #### P T, PTT, CMP, MG, TSH3, CBC, HS TROP #### [facility] [address] [place] [address] [place] Platelets [#/volume] in Bloo d by Automated countOrdered By: Shahbaz Lehman on 03-19-2024 Platelets (Bld) [#/Vol] 239 10*3/uL Normal 150-450 [facility] Comment on above: Performed By: #### P T, PTT, CMP, MG, TSH3, CBC, HS TROP #### [facility] [address] Potassium [Moles/volume] in Serum or PlasmaOrdered By: Shahbaz Lehman on 03-19-2024 Potassium [Moles/Vol] 3.6 mmol/L Normal 3.5-5.1 [facility] Comment on above: Performed By: #### P T, PTT, CMP, MG, TSH3, CBC, HS TROP #### [facility] [address] Protein Test strip (U) [Mass /Vol]Ordered By: Shahbaz Lehman on 03-19-2024 Protein (U) [Mass/Vol] Negative Negative [facility] Protein [Mass/volume] in Ser um or PlasmaOrdered By: Shahbaz Lehman on 03-19-2024 Protein [Mass/Vol] 6.7 g/dL Normal 6.4-8.9 [facility] Comment on above: Performed By: #### P T, PTT, CMP, MG, TSH3, CBC, HS TROP #### [facility] [address] Prothrombin time (PT)Ordered By: Shahbaz Lehman on 03-19-2024 PT Coag (PPP) [Time] 11.6 s Normal 9.0-12.9 [facility] Comment on above: A hematocrit value g reater than 55% may lead to inaccurate results in coagulation testing. Patients having hematocrit values >55% require a special collection tube for coagulation studies. Please contact the laboratory at [phone] for redraw instructions. Result Comment: A he matocrit value greater than 55% may lead to inaccurate results in coagulation testing. Patients having hematocrit values >55% require a special collection tube for coagulation studies. Please contact the laboratory at [phone] for redraw instructions. Performed By: #### P T, PTT, CMP, MG, TSH3, CBC, HS TROP #### [facility] [address] [id number] [facility] Serum globulin measurement b y calculation (mass/volume)Ordered By: Shahbaz Lehman on 03-19-2024 Globulin (S) [Mass/Vol] 3.0 g/dL Normal [facility] Comment on above: Performed By: #### P T, PTT, CMP, MG, TSH3, CBC, HS TROP #### [facility] [address] Serum or plasma albumin/glob ulin mass ratioOrdered By: Shahbaz Lehman on 03-19-2024 Albumin/Globulin [Mass ratio] 1.2 {ratio} Normal [facility] Comment on above: Performed By: #### P T, PTT, CMP, MG, TSH3, CBC, HS TROP #### [facility] [address] Serum or plasma anion gap de terminationOrdered By: Shahbaz Lehman on 03-19-2024 Anion gap [Moles/Vol] 11.0 mmol/L Normal 6.0-15.0 [facility] Comment on above: Performed By: #### P T, PTT, CMP, MG, TSH3, CBC, HS TROP #### [facility] [address] [place] [address] Sodium [Moles/volume] in Ser um or PlasmaOrdered By: Shahbaz Lehman on 03-19-2024 Sodium [Moles/Vol] 138 mmol/L Normal 136-145 [facility] Comment on above: Performed By: #### P T, PTT, CMP, MG, TSH3, CBC, HS TROP #### [facility] [address] [place] [address] Specific gravity Test strip (U) [Rel density]Ordered By: Shahbaz Lehman on 03-19-2024 Specific gravity (U) [Rel density] 1.010 1.001-1.030 [facility] Thyrotropin [Units/volume] i n Serum or PlasmaOrdered By: Shahbaz Lehman on 03-19-2024 TSH Qn 3.36 m[IU]/L Normal 0.45-5.33 [facility] Comment on above: Result Comment: PERF ORMED BY: [place] [address] PATHOLOGIST SATELLITE INSTALLATION TECHNICIAN ALEX CROWLEY M.D. Performed By: #### P T, PTT, CMP, MG, TSH3, CBC, HS TROP ####[facility] [id number] [place] [id number] [place] Troponin I High Sensitivityo n 03-19-2024 Troponin I High Sensitivity 18.2 pg/mL Normal 0.0-20.0 [facility] Comment on above: Result Comment: PERF ORMED BY: [place] [address] PATHOLOGIST SATELLITE INSTALLATION TECHNICIAN ALEX CROWLEY M.D. Performed By: #### H S TROP ####[place] [id number] [facility] Troponin I High Sensitivity 19.4 pg/mL Normal 0.0-20.0 [facility] Comment on above: Result Comment: PERF ORMED BY: [place] [address] PATHOLOGIST SATELLITE INSTALLATION TECHNICIAN ALEX CROWLEY M.D. Performed By: #### P T, PTT, CMP, MG, TSH3, CBC, HS TROP #### [address] Troponin I.cardiac [Mass/vol ume] in Serum or Plasma by Detection limit <= 0.01 ng/Ordered By: Deborah Lamar on 03-19-2024 Troponin I.cardiac DL <= 0.01 ng/mL [Mass/Vol] 18.2 pg/mL 0.0-20.0 [facility] Troponin I.cardiac [Mass/vol ume] in Serum or Plasma by Detection limit <= 0.01 ng/Ordered By: Shahbaz Lehman on 03-19-2024 Troponin I.cardiac DL <= 0.01 ng/mL [Mass/Vol] 19.4 pg/mL 0.0-20.0 [facility] Urea nitrogen [Mass/volume] in Serum or PlasmaOrdered By: Shahbaz Lehman on 03-19-2024 Urea nitrogen [Mass/Vol] 26 mg/dL High 7 [facility] Comment on above: Performed By: #### P T, PTT, CMP, MG, TSH3, CBC, HS TROP #### [facility] [address] [place] [address] [facility] Urinalysison 03-19-2024 Bilirubin,Urine Negative Normal Negative [facility] Comment on above: Order Comment: Name Collection Type:: Clean-Voided Midstream Performed By: #### U A ####[place] [id number] [facility] Glucose Ql (U) Normal Normal Normal [facility] Comment on above: Order Comment: Name Collection Type:: Clean-Voided Midstream Performed By: #### U A ####[place] [id number] [facility] Nitrite,Urine Negative Normal Negative [facility] Comment on above: Order Comment: Name Collection Type:: Clean-Voided Midstream Performed By: #### U A ####[place] [id number] [facility] Occult Blood,Urine Negative Normal Negative [facility] Comment on above: Order Comment: Name Collection Type:: Clean-Voided Midstream Result Comment: PERF ORMED BY: [facility] [address] [place] [address] PATHOLOGIST SATELLITE INSTALLATION TECHNICIAN ALEX CROWLEY M.D. Performed By: #### U A ####[place] [id number] [facility] Protein,Urine Negative Normal Negative [facility] Comment on above: Order Comment: Name Collection Type:: Clean-Voided Midstream Performed By: #### U A ####[place] [id number] [facility] Specificy Crane,Urine 1.010 Normal 1.001-1.030 [facility] Comment on above: Order Comment: Name Collection Type:: Clean-Voided Midstream Performed By: #### U A ####[place] [id number] [facility] Urobilinogen,Urine Normal Normal Normal [facility] Comment on above: Order Comment: Name Collection Type:: Clean-Voided Midstream Performed By: #### U A ####[place] [id number] [facility] Urine appearanceOrdered By: Shahbaz Lehman on 03-19-2024 Appearance (U) Clear Normal Clear [facility] Comment on above: Order Comment: Name Collection Type:: Clean-Voided Midstream Performed By: #### U A ####[facility] [id number] [place] [address] [facility] Urobilinogen Test strip (U) [Mass/Vol]Ordered By: Shahbaz Lehman on 03-19-2024 Urobilinogen (U) [Mass/Vol] Normal mg/dL Normal [facility] XR chest 2V*on 03-19-2024 XR chest 2V* [facility] [address] [place] [address] [place] [address] XRay Report Signed Patient: Cristal Gu MR#: [id number] : 1955 Acct:[id number] Age/Sex: 69 / M ADM Date: 03/19/24 Loc: ER Room: Type: [facility] ER Attending Dr: Copies to: Shahbaz Lehman [...] Mark Jr., D.OJudi03/19/2024 11:49 AM Dictation Location: [place] [address] Transcribed By: [facility] 03/19/24 1149 Dictated By: Star Mark Jr, DO 03/19/24 1148 Signed By: 03/19/24 1149 Normal [facility] pH of Urine by Test stripOrd ered By: Shahbaz Lehman on 03-19-2024 pH (U) 6.5 [pH] Normal 5.0-9.0 [facility] Comment on above: Order Comment: Name Collection Type:: Clean-Voided Midstream Performed By: #### U A ####[facility] [id number] [place] [address] [place] CBC W Auto Differential pane l (Bld)on 03-18-2024 Basophils (Bld) [#/Vol] 10*3/uL Normal <0.[address] [facility] Comment on above: Order Comment: Speci men Type: BLOOD SPECIMENOrdering Facility: [facility] Address: [address] [place] [address] Performed By: #### 5 7021-8 ####[facility] LABCLIA [id number] [place] [address] Basophils/100 WBC (Bld) 0.2 % Normal [facility] Comment on above: Order Comment: Speci men Type: BLOOD SPECIMENOrdering Facility: [facility] Address: [address] [place] [address] Performed By: #### 5 7021-8 ####[facility] LABCLIA [id number] [place] [address] Differential cell count method Nom (Bld) Auto Normal [facility] Comment on above: Order Comment: Speci men Type: BLOOD SPECIMENOrdering Facility: [facility] Address: [address] [place] [address] Performed By: #### 5 7021-8 ####[facility] LABCLIA [id number] [place] [address] Eosinophils (Bld) [#/Vol] 0.03 10*3/uL Normal <0.[address] [facility] Comment on above: Order Comment: Speci men Type: BLOOD SPECIMENOrdering Facility: [facility] Address: [address] [place] [address] Performed By: #### 5 7021-8 ####[facility] LABCLIA [id number] [place] [address] Eosinophils/100 WBC (Bld) 0.3 % Normal [facility] Comment on above: Order Comment: Speci men Type: BLOOD SPECIMENOrdering Facility: [facility] Address: [address] [place] [address] Performed By: #### 5 7021-8 ####[facility] LABCLIA [id number] [place] [address] Erythrocyte distribution width (RBC) [Ratio] 13.2 % Normal 11.5-15.[address] [facility] Comment on above: Order Comment: Speci men Type: BLOOD SPECIMENOrdering Facility: [facility] Address: [address] [place] [address] Performed By: #### 5 7021-8 ####[facility] LABCLIA [id number] [place] [address] Hematocrit (Bld) [Volume fraction] 33.8 % Low 39.0-51.[address] [facility] Comment on above: Order Comment: Speci men Type: BLOOD SPECIMENOrdering Facility: [facility] Address: [address] [place] [address] Performed By: #### 5 7021-8 ####[facility] LABIA [id number] [place] [address] Hemoglobin (Bld) [Mass/Vol] 11.3 g/dL Low 13.0-17.[address] [facility] Comment on above: Order Comment: Speci men Type: BLOOD SPECIMENOrdering Facility: [facility] Address: [address] [place] [address] Performed By: #### 5 7021-8 ####[facility] LABIA [id number] [place] [address] Immature granulocytes (Bld) [#/Vol] 0.05 10*3/uL Normal <0.[address] [facility] Comment on above: Order Comment: Speci men Type: BLOOD SPECIMENOrdering Facility: [facility] Address: [address] [place] [address] Performed By: #### 5 7021-8 ####[facility] LABCLIA [id number] [place] [address] Immature granulocytes/100 WBC (Bld) 0.6 % Normal [facility] Comment on above: Order Comment: Speci men Type: BLOOD SPECIMENOrdering Facility: [facility] Address: [address] [place] [address] Performed By: #### 5 7021-8 ####[facility] LABCLIA [id number] [place] [address] Lymphocytes (Bld) [#/Vol] 0.85 10*3/uL Low 1.00-4.[address] [facility] Comment on above: Order Comment: Speci men Type: BLOOD SPECIMENOrdering Facility: [facility] Address: [address] [place] [address] Performed By: #### 5 7021-8 ####[facility] LABCLIA [id number] [place] [address] Lymphocytes/100 WBC (Bld) 9.9 % Normal [facility] Comment on above: Order Comment: Speci men Type: BLOOD SPECIMENOrdering Facility: [facility] Address: [address] [place] [address] Performed By: #### 5 7021-8 ####[facility] LABCLIA [id number] [place] [address] MCH (RBC) [Entitic mass] 31.0 pg Normal 26.0-34.[address] [facility] Comment on above: Order Comment: Speci men Type: BLOOD SPECIMENOrdering Facility: [facility] Address: [address] [place] [address] Performed By: #### 5 7021-8 ####[facility] LABIA [id number] [place] [address] MCHC (RBC) [Mass/Vol] 33.4 g/dL Normal 30.5-36.[address] [facility] Comment on above: Order Comment: Speci men Type: BLOOD SPECIMENOrdering Facility: [facility] Address: [address] [place] [address] Performed By: #### 5 7021-8 ####[facility] LABCLIA [id number] [place] [address] MCV (RBC) [Entitic vol] 92.6 fL Normal 80.0-100.[address] [facility] Comment on above: Order Comment: Speci men Type: BLOOD SPECIMENOrdering Facility: [facility] Address: [address] [place] [address] Performed By: #### 5 7021-8 ####[facility] LABCLIA [id number] [place] [address] Monocytes (Bld) [#/Vol] 0.82 10*3/uL Normal <0.[address] [facility] Comment on above: Order Comment: Speci men Type: BLOOD SPECIMENOrdering Facility: [facility] Address: [address] [place] [address] Performed By: #### 5 7021-8 ####[facility] LABIA [id number] [place] [address] Monocytes/100 WBC (Bld) 9.6 % Normal [facility] Comment on above: Order Comment: Speci men Type: BLOOD SPECIMENOrdering Facility: [facility] Address: [address] [place] [address] Performed By: #### 5 7021-8 ####[facility] LABCLIA [id number] [place] [address] Neutrophils (Bld) [#/Vol] 6.81 10*3/uL Normal 1.45-7.[address] [facility] Comment on above: Order Comment: Speci men Type: BLOOD SPECIMENOrdering Facility: [facility] Address: [address] [place] [address] Performed By: #### 5 7021-8 ####[facility] LABCLIA [id number] [place] [address] Neutrophils/100 WBC (Bld) 79.4 % Normal [facility] Comment on above: Order Comment: Speci men Type: BLOOD SPECIMENOrdering Facility: [facility] Address: [address] [place] [address] Performed By: #### 5 7021-8 ####[facility] LABCLIA [id number] [place] [address] Nucleated RBC (Bld) [#/Vol] 10*3/uL Normal <0.[address] [facility] Comment on above: Order Comment: Speci men Type: BLOOD SPECIMENOrdering Facility: [facility] Address: [address] [place] [address] Performed By: #### 5 7021-8 ####[facility] LABCLIA [id number] [place] [address] Nucleated RBC/100 WBC (Bld) [Ratio] 0.0 /100 WBC Normal [facility] Comment on above: Order Comment: Speci men Type: BLOOD SPECIMENOrdering Facility: [facility] Address: [address] [place] [address] Performed By: #### 5 7021-8 ####[facility] LABCLIA [id number] [place] [address] Platelet mean volume (Bld) [Entitic vol] 10.4 fL Normal 9.0-12.[address] [facility] Comment on above: Order Comment: Speci men Type: BLOOD SPECIMENOrdering Facility: [facility] Address: [address] [place] [address] Performed By: #### 5 7021-8 ####[facility] LABCLIA [id number] [place] [address] Platelets (Bld) [#/Vol] 250 10*3/uL Normal 150-[address] [facility] Comment on above: Order Comment: Speci men Type: BLOOD SPECIMENOrdering Facility: [facility] Address: [address] [place] [address] Performed By: #### 5 7021-8 ####[facility] LABCLIA [id number] [place] [address] RBC (Bld) [#/Vol] 3.65 10*6/uL Low 4.20-6.00 [facility] Comment on above: Order Comment: Speci men Type: BLOOD SPECIMENOrdering Facility: [facility] Address: [address] [place] [address] Performed By: #### 5 7021-8 ####[facility] LABCLIA [id number] [place] [address] WBC (Bld) [#/Vol] 8.58 10*3/uL Normal 3.70-11.00 [facility] Comment on above: Order Comment: Speci men Type: BLOOD SPECIMENOrdering Facility: [facility] Address: [address] [place] [address] Performed By: #### 5 7021-8 ####[facility] LABCLIA [id number] [place] [address] CNOVSPon 03-18-2024 CNOVSP Normal [facility] Comprehensive metabolic 2000 panelon 03-18-2024 Albumin [Mass/Vol] 4.2 g/dL Normal 3.9-4.9 [facility] [place] [facility] Comment on above: Order Comment: Speci men Type: BLOOD SPECIMENOrdering Facility: [facility] Address: [address] [place] [address] Performed By: #### 2 4323-8 ####[facility] LABCLIA [id number] [place] [address] ALP [Catalytic activity/Vol] 43 U/L Normal 38-[address] [facility] Comment on above: Order Comment: Speci men Type: BLOOD SPECIMENOrdering Facility: [facility] Address: [address] [place] [address] Performed By: #### 2 4323-8 ####[facility] LABCLIA [id number] [place] [address] ALT [Catalytic activity/Vol] 7 U/L Low 10-[address] [facility] Comment on above: Order Comment: Speci men Type: BLOOD SPECIMENOrdering Facility: [facility] Address: [address] [place] [address] Performed By: #### 2 4323-8 ####[facility] LABCLIA [id number] [place] [address] Anion gap [Moles/Vol] 9 mmol/L Normal 8-[address] [facility] Comment on above: Order Comment: Speci men Type: BLOOD SPECIMENOrdering Facility: [facility] Address: [address] [place] [address] Performed By: #### 2 4323-8 ####[facility] LABCLIA [id number] [place] [address] AST [Catalytic activity/Vol] 11 U/L Low 14-[address] [facility] Comment on above: Order Comment: Speci men Type: BLOOD SPECIMENOrdering Facility: [facility] Address: [address] [place] [address] Performed By: #### 2 4323-8 ####[facility] LABCLIA [id number] [place] [address] Bilirubin [Mass/Vol] 0.3 mg/dL Normal 0.2-1.3 [facility] Comment on above: Order Comment: Speci men Type: BLOOD SPECIMENOrdering Facility: [facility] Address: [address] [place] [address] Performed By: #### 2 4323-8 ####[facility] LABCLIA [id number] [place] [address] Calcium [Mass/Vol] 10.0 mg/dL Normal 8.5-10.2 [facility] [place] [facility] Comment on above: Order Comment: Speci men Type: BLOOD SPECIMENOrdering Facility: [facility] Address: [address] [place] [address] Performed By: #### 2 4323-8 ####[facility] LABCLIA [id number] [place] [address] Chloride [Moles/Vol] 103 mmol/L Normal 98-107 [facility] Comment on above: Order Comment: Speci men Type: BLOOD SPECIMENOrdering Facility: [facility] Address: [address] [place] [address] Performed By: #### 2 4323-8 ####[facility] LABCLIA [id number] [place] [address] CO2 [Moles/Vol] 27 mmol/L Normal 22-[address] [facility] Comment on above: Order Comment: Speci men Type: BLOOD SPECIMENOrdering Facility: [facility] Address: [address] [place] [address] Performed By: #### 2 4323-8 ####[facility] LABCLIA [id number] [place] [address] Creatinine [Mass/Vol] 1.08 mg/dL Normal 0.73-1.[address] [facility] Comment on above: Order Comment: Speci men Type: BLOOD SPECIMENOrdering Facility: [facility] Address: [address] [place] [address] Performed By: #### 2 4323-8 ####[facility] LABCLIA [id number] [place] [address] Creatinine and Glomerular filtration rate.predicted panel (S/P/Bld) 75 mL/min/1.73m??? Normal >=[address] [facility] Comment on above: Order Comment: Speci men Type: BLOOD SPECIMENOrdering Facility: [facility] Address: [address] [place] [address] Result Comment: Landy mated Glomerular Filtration Rate [...] actual GFR. Performed By: #### 2 4323-8 ####[facility] LABIA [id number] [place] [address] Glucose [Mass/Vol] 87 mg/dL Normal 74-99 [facility] [place] [facility] Comment on above: Order Comment: Ajay rausch Type: BLOOD SPECIMENOrdering Facility: [facility] Address: [address] [place] [address] Result Comment: The [place] Diabetes Association (ADA) provides guidance for cutoff [...] Standards of Medical Care in Diabetes 2016, [place] [employer]. Diabetes Care. 2016.39(Suppl 1). Performed By: #### 2 4323-8 ####[facility] LABCLIA [id number] [place] [address] Potassium [Moles/Vol] 4.1 mmol/L Normal 3.7-5.[address] [facility] Comment on above: Order Comment: Ajay rausch Type: BLOOD SPECIMENOrdering Facility: [facility] Address: [address] [place] [address] Performed By: #### 2 4323-8 ####[facility] LABIA [id number] [place] [address] Protein [Mass/Vol] 6.9 g/dL Normal 6.3-8.0 [facility] [place] [facility] Comment on above: Order Comment: Ajay rausch Type: BLOOD SPECIMENOrdering Facility: [facility] Address: [address] [id number] Performed By: #### 2 4323-8 ####[facility] LABCLIA [id number] [place] [address] Sodium [Moles/Vol] 139 mmol/L Normal 136-144 [facility] [place] [facility] Comment on above: Order Comment: Speci men Type: BLOOD SPECIMENOrdering Facility: [facility] Address: [address] [place], [place] [address] Performed By: #### 2 4323-8 ####[facility] LABCLIA [id number] [place] [address] Urea nitrogen [Mass/Vol] 27 mg/dL High 9- [facility] Comment on above: Order Comment: Speci men Type: BLOOD SPECIMENOrdering Facility: [facility] Address: [address] [place] [address] Performed By: #### 2 4323-8 ####[facility] LABCLIA [id number] [place] [address] ECG 12 lead ECGon 03-18-2024 ECG 12 lead ECG [facility] Main [place] [id number] Electrocardiograph Report Signed Patient: Cristal Gu MR#: [id number] : 1955 Acct:[id number] Age/Sex: 69 / M ADM Date: 03/18/24 Loc: ER Room: Type: [facility] ER Attending Dr: Ordering Provider: Abel De [...] change was found Confirmed by Jonathan Chan ([id number]) on 03/20/2024 6:35:46 PM Referred By: Electronically Signed By: Jonathan Chan Transcribed By: MUS Signed By Jonathan Chan MD 03/20/24 [address] [facility] TSH SerPl-aCncon 03-18-2024 TSH Qn 6.660 m[IU]/L High 0.270-4.[address] [facility] Comment on above: Order Comment: Speci men Type: BLOOD SPECIMENOrdering Facility: [facility] Address: [address] [place] [address] Performed By: #### 3 016-3 ####[facility] LABCLIA [id number] [facility] [place] [id number] Ambulatory Visit Summaryon 0 03-17-2024 Ambulatory [...] 10:00 AM EDT With: Enrique [place] Where: [address] [address]- Friday 11:00 AM EDT With: Where: [address] [address]- Medications What How Much When Instructions Unchanged [...] for choosing us for your care. Normal [facility] Family Medicine Office/Clini c Noteon 03-17-2024 Family [...] pt was scheduled to see someone at [facility] for his left arm pain but missed [...] (COVID-19) mRNA-1273 vaccine 11/15/2020 Recorded Normal [facility] Comment on above: Result Comment: Elec tronically Signed By: Enrique [place]\.br\Date and Time Signed: 03/17/24 12:13 EDT CNOVon 03-15-2024 CNOV [address] [facility] CNPNon 03-15-2024 CNPN [address] [facility] CNPNon 03-09-2024 CNPN Normal [facility] GLUCOSE, BLOOD (POC)on 03-09 Glucose [Mass/Vol] 93 mg/dL 74 - 99 mg/dL [facility] Comment on above: Location:[facility], [address] [place] [address] , [place], [place], [address] The Accu-Chek Inform II glucose meter has [...] blood gas instrument) in the above situations. [facility] NM PET/CT SKULL-THIGH SUBQon 03-09-2024 NM PET/CT SKULL-THIGH SUBQ Normal [facility] PET+CT Guidance for localiza tion of tumor [...] any questions regarding this interpretation, please call [phone]. If you are unable to reach us at the number above, please feel free to contact [facility] eRadiology at [phone]. DIVISION OF RADIOLOGY * * *Final Report* [...] mCi * Uptake Time: minutes * Radiopharmaceutical: F89-Lnngjsnncisqupwu se (FDG) COMPARISON: PET/CT 11/25/2023 RESULT: REFERENCES: [...] radiotracer avid lesion. DIVISION OF RADIOLOGY Provider, [facility] [place] - 03/09/2024 * * *Final Report* * [...] mCi * Uptake Time: minutes * Radiopharmaceutical: U13-Rysqmmeqexurzdem se (FDG) COMPARISON: PET/CT 11/25/2023 RESULT: REFERENCES: [...] any questions regarding this interpretation, please call [phone]. If you are unable to reach us at the number above, please feel free to contact [facility] eRadiology at [phone]. [facility] Radiology Study observation (narrative) [facility] PET+CT Guidance for localiza tion of tumor of Skull base to mid-thigh-- W 18F-FDG IVOrdered By: Ccf Provider on 03-09-2024 [facility] CNPNon 03-01-2024 CNPN Normal [facility] Family Medicine Office/Clini c Noteon 03-01-2024 Family Medicine Office/Clinic Note Family Medicine Office/Clinic Note HPI Staff Vasquez is a 69 year old male presenting for ER follow up ER followup: [facility]: [place] Visit date: 02/20/24 Symptoms the patient presented [...] up at pharmacy. will send order to [facility]. pt was provided Dr. Guaman's phone number [...] SARS-CoV-2 (COVID-19) mRNA-1273 vaccine 11/15/2020 Recorded Normal [facility] Comment on above: Result Comment: Elec tronically Signed By: En[place]\.miladys\Date and Time Signed: 03/01/24 11:20 EDT CNPNon 02-24-2024 CNPN Normal [facility] CNPNon 02-20-2024 CNPN Normal [facility] CNPNon 02-18-2024 CNPN Normal [facility] CNPNon 02-16-2024 CNPN Normal [facility] CNPNon 02-10-2024 CNPN Normal [facility] XR chest 2V*on 02-08-2024 XR chest 2V* [facility] Main [place] [address] [place] [address] XRay Report Signed Patient: Cristal Gu MR#: [id number] 2627 : 1955 Acct:[id number] Age/Sex: 68 / M ADM Date: 02/07/24 Loc: ER Room: Type: [facility] ER Attending Dr: Copies to: John Dominguez [...] Buzz Barroso M.D.02/08/2024 9:12 AM Dictation Location: [place] [address] Transcribed By: [facility] 02/08/24911 Dictated By: Buzz Barroso DO 02/08/24909 Signed By: 02/08/[address] [facility] Alanine aminotransferase [En zymatic activity/volume] in Serum or PlasmaOrdered By: John Dominguez on 02-07-2024 ALT [Catalytic activity/Vol] 10 U/L Normal 7-52 [facility] Comment on above: Performed By: #### B DIRECTOR STAFFING, CMP, CK, HS TROP, SCAN CBC ####[address] Albumin [Mass/volume] in Ser um or Plasma by Bromocresol green (BCG) dye binding methoOrdered By: John Dominguez on 02-07-2024 Albumin BCG dye [Mass/Vol] 3.6 g/dL 3.5-5.7 [facility] Alkaline phosphatase [Enzyma tic activity/volume] in Serum or PlasmaOrdered By: John Dominguez on 02-07-2024 ALP [Catalytic activity/Vol] 38 U/L Normal 34-104 [facility] Comment on above: Performed By: #### B DIRECTOR STAFFING, CMP, CK, HS TROP, SCAN CBC ####[address] Aspartate aminotransferase [ Enzymatic activity/volume] in Serum or PlasmaOrdered By: John Dominguez on 02-07-2024 AST [Catalytic activity/Vol] 20 U/L Normal 13-39 [facility] Comment on above: Performed By: #### B DIRECTOR STAFFING, CMP, CK, HS TROP, SCAN CBC ####[address] Automated basophil %Ordered By: John Dominguez on 02-07-2024 Basophils/100 WBC (Bld) 0.7 % Normal . [facility] Comment on above: Performed By: #### B DIRECTOR STAFFING, CMP, CK, HS TROP, SCAN CBC ####[address] Automated basophil countOrde red By: John Dominguez on 02-07-2024 Basophils (Bld) [#/Vol] 0.0 10*3/uL Normal 0.0-0.2 [facility] Comment on above: Performed By: #### B DIRECTOR STAFFING, CMP, CK, HS TROP, SCAN CBC ####[address] Automated blood monocyte cou ntOrdered By: John Dominguez on 02-07-2024 Monocytes (Bld) [#/Vol] 0.4 10*3/uL Normal 0.0-0.8 [facility] Comment on above: Performed By: #### B DIRECTOR STAFFING, CMP, CK, HS TROP, SCAN CBC ####[place] [address] [address] Automated eosinophil %Ordere d By: John Dominguez on 02-07-2024 Eosinophils/100 WBC (Bld) 0.1 % Normal . [facility] Comment on above: Performed By: #### B DIRECTOR STAFFING, CMP, CK, HS TROP, SCAN CBC ####[place] [address] [address] Automated eosinophil countOr dered By: John Dominguez on 02-07-2024 Eosinophils (Bld) [#/Vol] 0.0 10*3/uL Normal 0.0-0.45 [facility] Comment on above: Performed By: #### B DIRECTOR STAFFING, CMP, CK, HS TROP, SCAN CBC ####[address] Automated monocyte %Ordered By: John Dominguez on 02-07-2024 Monocytes/100 WBC (Bld) 9.5 % Normal . [facility] Comment on above: Performed By: #### B DIRECTOR STAFFING, CMP, CK, HS TROP, SCAN CBC ####[place] [address] [address] Automated neutrophil %Ordere d By: John Dominguez on 02-07-2024 Neutrophils/100 WBC (Bld) 75.4 % Normal . [facility] Comment on above: Performed By: #### B DIRECTOR STAFFING, CMP, CK, HS TROP, SCAN CBC ####[place] [id number] [facility] BNP ser/plasOrdered By: John Dominguez on 02-07-2024 Natriuretic peptide B (Bld) [Mass/Vol] 123.0 pg/mL High 5-100 [facility] Comment on above: Result Comment: PERF ORMED BY: [facility] [address] [place] [address] PATHOLOGIST [employer]ATE[employer] INSTALLATION TECHNICIAN ALEX CROWLEY M.D. Performed By: #### B DIRECTOR STAFFING, CMP, CK, HS TROP, SCAN CBC ####[place] [id number] [facility] Bilirubin.total [Mass/volume ] in Serum or PlasmaOrdered By: John Dominguez on 02-07-2024 Bilirubin [Mass/Vol] 0.7 mg/dL Normal 0.3-1.0 [facility] Comment on above: Performed By: #### B DIRECTOR STAFFING, CMP, CK, HS TROP, SCAN CBC ####[place] [id number] [facility] Calcium [Mass/volume] in Ser um or PlasmaOrdered By: John Dominguez on 02-07-2024 Calcium [Mass/Vol] 9.4 mg/dL Normal 8.6-10.3 [facility] Comment on above: Performed By: #### B DIRECTOR STAFFING, CMP, CK, HS TROP, SCAN CBC ####[place] [id number] [facility] Carbon dioxide, total [Moles /volume] in Serum or PlasmaOrdered By: John Dominguez on 02-07-2024 CO2 [Moles/Vol] 23.7 mmol/L Normal 21.0-31.0 [facility] Comment on above: Performed By: #### B DIRECTOR STAFFING, CMP, CK, HS TROP, SCAN CBC ####[place] [id number] [facility] Chloride [Moles/volume] in S juanpablo or PlasmaOrdered By: John Dominguez on 02-07-2024 Chloride [Moles/Vol] 100 mmol/L Normal 98-107 [facility] Comment on above: Performed By: #### B DIRECTOR STAFFING, CMP, CK, HS TROP, SCAN CBC ####[place] [id number] [facility] Comprehensive Metabolic Pane tim 02-07-2024 Albumin [Mass/Vol] 3.6 g/dL Normal 3.5-5.7 [facility] Comment on above: Performed By: #### B DIRECTOR STAFFING, CMP, CK, HS TROP, SCAN CBC ####[address] [place] [address] [facility] Creatinine Clr Calc Pharmacy 47.99 Normal [facility] Comment on above: Result Comment: PERF ORMED BY: [place] [id number] PATHOLOGIST SATELLITE INSTALLATION TECHNICIAN ALEX CROWLEY M.D. Performed By: #### B DIRECTOR STAFFING, CMP, CK, HS TROP, SCAN CBC ####[place] [id number] [facility] GFR/1.73 sq M.predicted MDRD (S/P/Bld) [Vol rate/Area] mL/min/{1.73_m2} Normal [facility] Comment on above: Performed By: #### B DIRECTOR STAFFING, CMP, CK, HS TROP, SCAN CBC ####[place] [id number] [facility] Creatine kinase [Enzymatic a ctivity/volume] in Serum or PlasmaOrdered By: John Dominguez on 02-07-2024 CK [Catalytic activity/Vol] 54 U/L Normal 30-223 [facility] Comment on above: Performed By: #### B DIRECTOR STAFFING, CMP, CK, HS TROP, SCAN CBC ####[place] [address] [facility] Creatinine [Mass/volume] in Serum or PlasmaOrdered By: John Dominguez on 02-07-2024 Creatinine [Mass/Vol] 1.12 mg/dL Normal 0.70-1.30 [facility] Comment on above: Performed By: #### B DIRECTOR STAFFING, CMP, CK, HS TROP, SCAN CBC ####[place] [id number] [facility] ECG 12 lead ECGon 02-07-2024 ECG 12 lead ECG [facility] Main [place] [address] [id number] Electrocardiograph Report Signed Patient: Cristal Gu MR#: [id number] : 1955 Acct:[id number] Age/Sex: 68 / M ADM Date: 02/07/24 Loc: ER Room: Type: [facility] ER Attending Dr: Ordering Provider: John Dominguez [...] John Dominguez MD 02/08/24 0020 Normal [facility] Erythrocyte distribution wid th [Ratio] by Automated countOrdered By: John Dominguez on 02-07-2024 Erythrocyte distribution width (RBC) [Ratio] 14.9 % High 12.0-14.8 [facility] Comment on above: Performed By: #### B DIRECTOR STAFFING, CMP, CK, HS TROP, SCAN CBC ####[facility] [id number] [place] [id number] [facility] Erythrocytes [#/volume] in B lood by Automated countOrdered By: John Dominguez on 02-07-2024 RBC (Bld) [#/Vol] 3.76 10*6/uL Low 3.90-5.60 [facility] Comment on above: Performed By: #### B DIRECTOR STAFFING, CMP, CK, HS TROP, SCAN CBC ####[facility] [id number] [place] [id number] [facility] Glucose [Mass/volume] in Ser um or PlasmaOrdered By: John Dominguez on 02-07-2024 Glucose [Mass/Vol] 168 mg/dL High 70-100 [facility] Comment on above: ADA recommended refe rence rangeRandom Glucose Reference Range is dependent on time and content of last meal. Glucose of more than 200 mg/dL in a nonstressed, ambulatory subject supports the diagnosis of Diabetes Mellitus. Result Comment: [place] om Glucose Reference Range is dependent on time and content of last meal. Glucose of more than 200 mg/dL in a nonstressed, ambulatory subject supports the diagnosis of Diabetes Mellitus. ADA recommended reference range Performed By: #### B DIRECTOR STAFFING, CMP, CK, HS TROP, SCAN CBC ####[place] [id number] Hematocrit [Volume Fraction] of Blood by Automated countOrdered By: John Dominguez on 02-07-2024 Hematocrit (Bld) [Volume fraction] 35.7 % Low 38.8-50.0 [facility] Comment on above: Performed By: #### B DIRECTOR STAFFING, CMP, CK, HS TROP, SCAN CBC ####[place] [id number] Hemoglobin [Mass/volume] in BloodOrdered By: John Dominguez on 02-07-2024 Hemoglobin (Bld) [Mass/Vol] 12.1 g/dL Low 13.0-17.0 [facility] Comment on above: Performed By: #### B DIRECTOR STAFFING, CMP, CK, HS TROP, SCAN CBC ####[address] Leukocytes [#/volume] correc nani for nucleated erythrocytes in Blood by Automated counOrdered By: John Dominguez on 02-07-2024 WBC corrected for nucl RBC Auto (Bld) [#/Vol] 4.0 10*3/uL Low 4.1-10.5 [facility] Leukocytes [#/volume] in Blo od by Automated countOrdered By: John Dominguez on 02-07-2024 WBC (Bld) [#/Vol] 4.0 10*3/uL Low 4.1-10.5 [facility] Comment on above: Performed By: #### B DIRECTOR STAFFING, CMP, CK, HS TROP, SCAN CBC ####[address] Lymphocytes [#/volume] in Bl ood by Automated countOrdered By: John Dominguez on 02-07-2024 Lymphocytes (Bld) [#/Vol] 0.6 10*3/uL Low 1.00-4.8 [facility] Comment on above: Performed By: #### B DIRECTOR STAFFING, CMP, CK, HS TROP, SCAN CBC ####[place] [id number] Lymphocytes/100 leukocytes i n Blood by Automated countOrdered By: John Dominguez on 02-07-2024 Lymphocytes/100 WBC (Bld) 14.3 % Normal . [facility] Comment on above: Performed By: #### B DIRECTOR STAFFING, CMP, CK, HS TROP, SCAN CBC ####[address] MCH [Entitic mass] by Automa nani countOrdered By: John Dominguez on 02-07-2024 MCH (RBC) [Entitic mass] 32.1 pg Normal 27.5-35.2 [facility] Comment on above: Performed By: #### B DIRECTOR STAFFING, CMP, CK, HS TROP, SCAN CBC ####[place] [address] MCHC Auto (RBC) [Mass/Vol]Or dered By: John Dominguez on 02-07-2024 MCHC (RBC) [Mass/Vol] 33.8 g/dL 32.5-35.6 [facility] MCV [Entitic volume] by Auto mated countOrdered By: John Dominguez on 02-07-2024 MCV (RBC) [Entitic vol] 94.9 fL Normal 83.5-101 [facility] Comment on above: Performed By: #### B DIRECTOR STAFFING, CMP, CK, HS TROP, SCAN CBC ####[address] Monocyte distribution width [Entitic volume] in Blood by AutomatedOrdered By: John Dominguez on 02-07-2024 Monocyte distribution width Auto (Bld) [Entitic vol] 19.12 % 0.00-20.00 [facility] Neutrophils [#/volume] in Bl ood by Automated countOrdered By: John Dominguez on 02-07-2024 Neutrophils (Bld) [#/Vol] 3.0 10*3/uL Normal 1.8-7.7 [facility] Comment on above: Performed By: #### B DIRECTOR STAFFING, CMP, CK, HS TROP, SCAN CBC ####[address] No Panel InformationOrdered By: John Dominguez on 02-07-2024 Estimated GFR (CKD-EPI) > 60.0 mL/Min [facility] Creatinine Clearance (Chem 47.99 [facility] Nucleated erythrocytes [Pres ence] in Blood by Automated countOrdered By: John Dominguez on 02-07-2024 Nucleated RBC Auto Ql (Bld) 0.1 /100{WBC} 0-0.5 [facility] Platelet adequacy [Presence] in Blood by Light microscopyOrdered By: John Dominguez on 02-07-2024 Platelets LM Ql (Bld) Normal Normal [facility] Platelet mean volume [Entiti c volume] in Blood by Automated countOrdered By: John Dominguez on 02-07-2024 Platelet mean volume (Bld) [Entitic vol] 10.5 fL High 6.6-10.1 [facility] Comment on above: Performed By: #### B DIRECTOR STAFFING, CMP, CK, HS TROP, SCAN CBC ####[facility] [id number] Platelet morphology finding [Identifier] in BloodOrdered By: John Dominguez on 02-07-2024 Platelet morphology finding Nom (Bld) Normal Normal [facility] Platelets Large [Presence] i n Blood by Light microscopyOrdered By: John Dominguez on 02-07-2024 Platelets Large LM Ql (Bld) Slight [facility] Platelets [#/volume] in Bloo d by Automated countOrdered By: John Dominguez on 02-07-2024 Platelets (Bld) [#/Vol] 187 10*3/uL Normal 150-450 [facility] Comment on above: Performed By: #### B DIRECTOR STAFFING, CMP, CK, HS TROP, SCAN CBC ####[facility] [id number] Polychromasia [Presence] in Blood by Light microscopyOrdered By: John Dominguez on 02-07-2024 Polychromasia LM Ql (Bld) Slight [facility] Potassium [Moles/volume] in Serum or PlasmaOrdered By: John Dominguez on 02-07-2024 Potassium [Moles/Vol] 3.8 mmol/L Normal 3.5-5.1 [facility] Comment on above: Performed By: #### B DIRECTOR STAFFING, CMP, CK, HS TROP, SCAN CBC ####[address] Protein [Mass/volume] in Ser um or PlasmaOrdered By: John Dominguez on 02-07-2024 Protein [Mass/Vol] 6.9 g/dL Normal 6.4-8.9 [facility] Comment on above: Performed By: #### B DIRECTOR STAFFING, CMP, CK, HS TROP, SCAN CBC ####[place] [id number] [facility] RBC morphologyOrdered By: Karmen Dominguez on 02-07-2024 RBC morphology finding Nom (Bld) Normal Normal Normal [facility] Comment on above: Performed By: #### B DIRECTOR STAFFING, CMP, CK, HS TROP, SCAN CBC ####[address] Scan and CBCon 02-07-2024 Large Platelets Slight Normal [facility] Comment on above: Result Comment: PERF ORMED BY: [facility] [address] [place] [address] PATHOLOGIST [employer] TECHNICIAN ALEX CROWLEY M.D. Performed By: #### B DIRECTOR STAFFING, CMP, CK, HS TROP, SCAN CBC ####[address] Mean Corpuscular HGB Conc 33.8 g/dL Normal 32.5-35.6 [facility] Comment on above: Performed By: #### B DIRECTOR STAFFING, CMP, CK, HS TROP, SCAN CBC ####[place] [id number] [facility] Monocytes/100 WBC (Bld) 19.12 % Normal 0.00-20.00 [facility] Comment on above: Performed By: #### B DIRECTOR STAFFING, CMP, CK, HS TROP, SCAN CBC ####[address] NRBC% 0.1 /100{WBC} Normal 0-0.5 [facility] Comment on above: Performed By: #### B DIRECTOR STAFFING, CMP, CK, HS TROP, SCAN CBC ####[address] Platelet Estimate Normal Normal Normal [facility] Comment on above: Performed By: #### B DIRECTOR STAFFING, CMP, CK, HS TROP, SCAN CBC ####[address] Platelet Morphology Normal Normal Normal [facility] Comment on above: Performed By: #### B DIRECTOR STAFFING, CMP, CK, HS TROP, SCAN CBC ####[address] Polychromasia Slight Normal [facility] Comment on above: Performed By: #### B DIRECTOR STAFFING, CMP, CK, HS TROP, SCAN CBC ####[address] Serum globulin measurement b y calculation (mass/volume)Ordered By: John Dominguez on 02-07-2024 Globulin (S) [Mass/Vol] 3.3 g/dL Normal [facility] Comment on above: Performed By: #### B DIRECTOR STAFFING, CMP, CK, HS TROP, SCAN CBC ####[address] Serum or plasma albumin/glob ulin mass ratioOrdered By: John Dominguez on 02-07-2024 Albumin/Globulin [Mass ratio] 1.1 {ratio} Normal [facility] Comment on above: Performed By: #### B DIRECTOR STAFFING, CMP, CK, HS TROP, SCAN CBC ####[address] Serum or plasma anion gap de terminationOrdered By: John Dominguez on 02-07-2024 Anion gap [Moles/Vol] 13.1 mmol/L Normal 6.0-15.0 [facility] Comment on above: Performed By: #### B DIRECTOR STAFFING, CMP, CK, HS TROP, SCAN CBC ####[address] Sodium [Moles/volume] in Ser um or PlasmaOrdered By: John Dominguez on 02-07-2024 Sodium [Moles/Vol] 133 mmol/L Low 136-145 [facility] Comment on above: Performed By: #### B DIRECTOR STAFFING, CMP, CK, HS TROP, SCAN CBC ####[facility] [place] [phone] [facility] Troponin I High Sensitivityo n 02-07-2024 Troponin I High Sensitivity 10.1 pg/mL Normal 0.0-20.0 [facility] Comment on above: Result Comment: PERF ORMED BY: [facility] [address] [place] [id number] PATHOLOGIST [employer] INSTALLATION TECHNICIAN ALEX CROWLEY M.D. Performed By: #### B DIRECTOR STAFFING, CMP, CK, HS TROP, SCAN CBC ####[place] [address] [place] [phone] [facility] Troponin I.cardiac [Mass/vol ume] in Serum or Plasma by Detection limit <= 0.01 ng/Ordered By: John Dominguez on 02-07-2024 Troponin I.cardiac DL <= 0.01 ng/mL [Mass/Vol] 10.1 pg/mL 0.0-20.0 [facility] Urea nitrogen [Mass/volume] in Serum or PlasmaOrdered By: John Dominguez on 02-07-2024 Urea nitrogen [Mass/Vol] 17 mg/dL Normal 7-25 [facility] Comment on above: Performed By: #### B DIRECTOR STAFFING, CMP, CK, HS TROP, SCAN CBC ####[place] [address] [place] [phone] [facility] Family Medicine Office/Clini c Noteon 02-06-2024 Family [...] day(s), # 14 tab(s), Refills(s) 0, Pharmacy: [facility], 169.5, cm, 02/06/24 12:01:00 EDT, Height/Length Dosing, 52.9, kg, 02/06/24 12:01:00 EDT, Weight Dosing methylPREDNISolone, = 1 packet(s), Oral, As Directed, as directed on package labeling, X 6 day(s), # 21 tab(s), Refills(s) 0, Pharmacy: [facility], 169.5, cm, 02/06/24 12:01:00 EDT, Height/Length Dosing, 52.9, kg, 02/06/24 12:01:00 EDT, Weight Dosing 2. Former smoker (Z87.891: Personal history of nicotine dependence) continue not smoking Ordered: amoxicillin, 875 mg = 1 tab(s), Oral, BID, X 7 day(s), # 14 tab(s), Refills(s) 0, Pharmacy: [id number], 169.5, cm, 02/06/24 12:01:00 EDT, Height/Length Dosing, 52.9, kg, 02/06/24 12:01:00 EDT, Weight Dosing methylPREDNISolone, = 1 packet(s), Oral, As Directed, as directed on package labeling, X 6 day(s), # 21 tab(s), Refills(s) 0, Pharmacy: [id number], 169.5, cm, 02/06/24 12:01:00 EDT, Height/Length Dosing, 52.9, kg, 02/06/24 12:01:00 EDT, Weight Dosing 3. BMI less than 19,adult (Z68.1: Body mass index [BMI] 19.9 or less, adult) BMI education given Ordered: amoxicillin, 875 mg = 1 tab(s), Oral, BID, X 7 day(s), # 14 tab(s), Refills(s) 0, Pharmacy: [facility], 169.5, cm, 02/06/24 12:01:00 EDT, Height/Length Dosing, 52.9, kg, 02/06/24 12:01:00 EDT, Weight Dosing methylPREDNISolone, = 1 packet(s), Oral, As Directed, as directed on package labeling, X 6 day(s), # 21 tab(s), Refills(s) 0, Pharmacy: [facility], 169.5, cm, 02/06/24 12:01:00 EDT, Height/Length Dosing, 52.9, kg, 02/06/24 12:01:00 EDT, Weight Dosing Orders: triamcinolone topical, 1 duong, Topical, BID, 20 gram, Refill(s) 1, [facility], 169.5, cm, 10/15/23 11:53:00 EDT, Height/Length [...] (COVID-19) mRN (more content not included)... Normal [facility] Comment on above: Result Comment: Elec tronically Signed By: Enrique Austin\.br\Date and Time Signed: 02/06/24 12:32 EDT CBC W Auto Differential pane l (Bld)on 02-03-2024 Basophils (Bld) [#/Vol] 10*3/uL Normal <0.[address] [facility] Comment on above: Order Comment: Speci men Type: BLOOD SPECIMENOrdering Facility: [facility] Address: [address] [place] [address] Performed By: #### 5 7021-8 ####[facility] LABCLIA [id number] [place] [address] Basophils/100 WBC (Bld) 0.3 % Normal [facility] Comment on above: Order Comment: Speci men Type: BLOOD SPECIMENOrdering Facility: [facility] Address: [address] [place] [address] Performed By: #### 5 7021-8 ####[facility] LABCLIA [id number] [place] [address] Differential cell count method Nom (Bld) Auto Normal [facility] Comment on above: Order Comment: Speci men Type: BLOOD SPECIMENOrdering Facility: [facility] Address: [address] [place] [address] Performed By: #### 5 7021-8 ####[facility] LABCLIA [id number] [place] [address] Eosinophils (Bld) [#/Vol] 0.10 10*3/uL Normal <0.[address] [facility] Comment on above: Order Comment: Speci men Type: BLOOD SPECIMENOrdering Facility: [facility] Address: [address] [place] [address] Performed By: #### 5 7021-8 ####[facility] LABCLIA [id number] [place] [address] Eosinophils/100 WBC (Bld) 1.7 % Normal [facility] Comment on above: Order Comment: Speci men Type: BLOOD SPECIMENOrdering Facility: [facility] Address: [address] [place] [address] Performed By: #### 5 7021-8 ####[facility] LABCLIA [id number] [place] [address] Erythrocyte distribution width (RBC) [Ratio] 13.7 % Normal 11.5-15.[address] [facility] Comment on above: Order Comment: Speci men Type: BLOOD SPECIMENOrdering Facility: [facility] Address: [address] [place] [address] Performed By: #### 5 7021-8 ####[facility] LABCLIA [id number] [place] [address] Hematocrit (Bld) [Volume fraction] 38.1 % Low 39.0-51.[address] [facility] Comment on above: Order Comment: Speci men Type: BLOOD SPECIMENOrdering Facility: [facility] Address: [address] [place] [address] Performed By: #### 5 7021-8 ####[facility] LABCLIA [id number] [place] [address] Hemoglobin (Bld) [Mass/Vol] 12.7 g/dL Low 13.0-17.[address] [facility] Comment on above: Order Comment: Speci men Type: BLOOD SPECIMENOrdering Facility: [facility] Address: [address] [place] [address] Performed By: #### 5 7021-8 ####[facility] LABCLIA [id number] [place] [address] Immature granulocytes (Bld) [#/Vol] 0.04 10*3/uL Normal <0.[address] [facility] Comment on above: Order Comment: Speci men Type: BLOOD SPECIMENOrdering Facility: [facility] Address: [address] [place] [address] Performed By: #### 5 7021-8 ####[facility] LABCLIA [id number] [place] [address] Immature granulocytes/100 WBC (Bld) 0.7 % Normal [facility] Comment on above: Order Comment: Speci men Type: BLOOD SPECIMENOrdering Facility: [facility] Address: [address] [place] [address] Performed By: #### 5 7021-8 ####[facility] LABCLIA [id number] [place] [address] Lymphocytes (Bld) [#/Vol] 1.05 10*3/uL Normal 1.00-4.[address] [facility] Comment on above: Order Comment: Speci men Type: BLOOD SPECIMENOrdering Facility: [facility] Address: [address] [place] [address] Performed By: #### 5 7021-8 ####[facility] LABCLIA [id number] [place] [address] Lymphocytes/100 WBC (Bld) 17.6 % Normal [facility] Comment on above: Order Comment: Speci men Type: BLOOD SPECIMENOrdering Facility: [facility] Address: [address] [place] [address] Performed By: #### 5 7021-8 ####[facility] LABCLIA [id number] [place] [address] MCH (RBC) [Entitic mass] 31.7 pg Normal 26.0-34.[address] [facility] Comment on above: Order Comment: Speci men Type: BLOOD SPECIMENOrdering Facility: [facility] Address: [address] [place] [address] Performed By: #### 5 7021-8 ####[facility] LABCLIA [id number] [place] [address] MCHC (RBC) [Mass/Vol] 33.3 g/dL Normal 30.5-36.[address] [facility] Comment on above: Order Comment: Speci men Type: BLOOD SPECIMENOrdering Facility: [facility] Address: [address] [place] [address] Performed By: #### 5 7021-8 ####[facility] LABCLIA [id number] [place] [address] MCV (RBC) [Entitic vol] 95.0 fL Normal 80.0-100.[address] [facility] Comment on above: Order Comment: Speci men Type: BLOOD SPECIMENOrdering Facility: [facility] Address: [address] [place] [address] Performed By: #### 5 7021-8 ####[facility] LABCLIA [id number] [place] [address] Monocytes (Bld) [#/Vol] 1.00 10*3/uL High <0.[address] [facility] Comment on above: Order Comment: Speci men Type: BLOOD SPECIMENOrdering Facility: [facility] Address: [address] [place] [address] Performed By: #### 5 7021-8 ####[facility] LABCLIA [id number] [place] [address] Monocytes/100 WBC (Bld) 16.8 % Normal [facility] Comment on above: Order Comment: Speci men Type: BLOOD SPECIMENOrdering Facility: [facility] Address: [address] [place] [address] Performed By: #### 5 7021-8 ####[facility] LABCLIA [id number] [place] [address] Neutrophils (Bld) [#/Vol] 3.75 10*3/uL Normal 1.45-7.[address] [facility] Comment on above: Order Comment: Speci men Type: BLOOD SPECIMENOrdering Facility: [facility] Address: [address] [place] [address] Performed By: #### 5 7021-8 ####[facility] LABCLIA [id number] [place] [address] Neutrophils/100 WBC (Bld) 62.9 % Normal [facility] Comment on above: Order Comment: Speci men Type: BLOOD SPECIMENOrdering Facility: [facility] Address: [address] [place] [address] Performed By: #### 5 7021-8 ####[facility] LABCLIA [id number] [place] [address] Nucleated RBC (Bld) [#/Vol] 10*3/uL Normal <0.[address] [facility] Comment on above: Order Comment: Speci men Type: BLOOD SPECIMENOrdering Facility: [facility] Address: [address] [place] [address] Performed By: #### 5 7021-8 ####[facility] LABCLIA [id number] [place] [address] Nucleated RBC/100 WBC (Bld) [Ratio] 0.0 /100 WBC Normal [facility] Comment on above: Order Comment: Speci men Type: BLOOD SPECIMENOrdering Facility: [facility] Address: [address] [place] [address] Performed By: #### 5 7021-8 ####[facility] LABCLIA [id number] [place] [address] Platelet mean volume (Bld) [Entitic vol] 11.5 fL Normal 9.0-12.[address] [facility] Comment on above: Order Comment: Speci men Type: BLOOD SPECIMENOrdering Facility: [facility] Address: [address] [place] [address] Performed By: #### 5 7021-8 ####[facility] LABCLIA [id number] [place] [address] Platelets (Bld) [#/Vol] 201 10*3/uL Normal 150-[address] [facility] Comment on above: Order Comment: Speci men Type: BLOOD SPECIMENOrdering Facility: [facility] Address: [address] [place] [address] Performed By: #### 5 7021-8 ####[facility] LABCLIA [id number] [place] [address] RBC (Bld) [#/Vol] 4.01 10*6/uL Low 4.20-6.00 [facility] Comment on above: Order Comment: Speci men Type: BLOOD SPECIMENOrdering Facility: [facility] Address: [address] [place] [address] Performed By: #### 5 7021-8 ####[facility] LABCLIA [id number] [place] [address] WBC (Bld) [#/Vol] 5.96 10*3/uL Normal 3.70-11.00 [facility] Comment on above: Order Comment: Speci men Type: BLOOD SPECIMENOrdering Facility: [facility] Address: [address] [place] [address] Performed By: #### 5 7021-8 ####[facility] LABCLIA [id number] [place] [address] CNOVSPon 02-03-2024 CNOVSP Normal [facility] CNPNon 02-03-2024 CNPN Normal [facility] Comprehensive metabolic 2000 panelon 02-03-2024 Albumin [Mass/Vol] 3.8 g/dL Low 3.9-4.9 [facility] Comment on above: Order Comment: Speci men Type: BLOOD SPECIMENOrdering Facility: [facility] Address: [address] [place] [address] Performed By: #### 2 4323-8 ####[facility] LABCLIA [id number] [place] [address] ALP [Catalytic activity/Vol] 47 U/L Normal 38-[address] [facility] Comment on above: Order Comment: Speci men Type: BLOOD SPECIMENOrdering Facility: [facility] Address: [address] [place] [address] Performed By: #### 2 4323-8 ####[facility] LABCLIA [id number] [place] [address] ALT [Catalytic activity/Vol] 12 U/L Normal 10-[address] [facility] Comment on above: Order Comment: Speci men Type: BLOOD SPECIMENOrdering Facility: [facility] Address: [address] [place] [address] Performed By: #### 2 4323-8 ####[facility] LABCLIA [id number] [place] [address] Anion gap [Moles/Vol] 13 mmol/L Normal 8-[address] [facility] Comment on above: Order Comment: Speci men Type: BLOOD SPECIMENOrdering Facility: [facility] Address: [address] [place] [address] Performed By: #### 2 4323-8 ####[facility] LABCLIA [id number] [place] [address] AST [Catalytic activity/Vol] 22 U/L Normal 14-[address] [facility] Comment on above: Order Comment: Speci men Type: BLOOD SPECIMENOrdering Facility: [facility] Address: [address] [place] [address] Performed By: #### 2 4323-8 ####[facility] LABCLIA [id number] [place] [address] Bilirubin [Mass/Vol] 0.8 mg/dL Normal 0.2-1.3 [facility] Comment on above: Order Comment: Speci men Type: BLOOD SPECIMENOrdering Facility: [facility] [facility] Address: [address] [place] [address] Performed By: #### 2 4323-8 ####[facility] LABCLIA [id number] [place] [address] Calcium [Mass/Vol] 10.5 mg/dL High 8.5-10.2 [facility] Comment on above: Order Comment: Speci men Type: BLOOD SPECIMENOrdering Facility: [facility] Address: [address] [place] [address] Performed By: #### 2 4323-8 ####[facility] LABCLIA [id number] [place] [address] Chloride [Moles/Vol] 101 mmol/L Normal 98-107 [facility] Comment on above: Order Comment: Speci men Type: BLOOD SPECIMENOrdering Facility: [facility] Address: [address] [place] [address] Performed By: #### 2 4323-8 ####[facility] LABCLIA [id number] [place] [address] CO2 [Moles/Vol] 24 mmol/L Normal 22-[address] [facility] Comment on above: Order Comment: Speci men Type: BLOOD SPECIMENOrdering Facility: [facility] Address: [address] [place] [address] Performed By: #### 2 4323-8 ####[facility] LABCLIA [id number] [place] [address] Creatinine [Mass/Vol] 1.35 mg/dL High 0.73-1.[address] [facility] Comment on above: Order Comment: Speci men Type: BLOOD SPECIMENOrdering Facility: [facility] Address: [address] [place] [address] Performed By: #### 2 4323-8 ####[facility] LABCLIA [id number] [place] [address] Creatinine and Glomerular filtration rate.predicted panel (S/P/Bld) 58 mL/min/1.73m??? Low >=[address] [facility] Comment on above: Order Comment: Speci men Type: BLOOD SPECIMENOrdering Facility: [facility] Address: [address] [place] [address] Result Comment: Landy mated Glomerular Filtration Rate [...] actual GFR. Performed By: #### 2 4323-8 ####[facility] LABCLIA [id number] [place] [address] Glucose [Mass/Vol] 98 mg/dL Normal 74-99 [facility] Comment on above: Order Comment: Speci men Type: BLOOD SPECIMENOrdering Facility: [facility] Address: [address] [place], [place] [address] Result Comment: The [place] Diabetes Association (ADA) provides guidance for cutoff [...] Standards of Medical Care in Diabetes 2016, [employer] [employer]. Diabetes Care. 2016.39(Suppl 1). Performed By: #### 2 4323-8 ####[facility] LABCLIA [id number] [place] [address] Potassium [Moles/Vol] 4.7 mmol/L Normal 3.7-5.[address] [facility] Comment on above: Order Comment: Speci men Type: BLOOD SPECIMENOrdering Facility: [facility] Address: [address] [place] [address] Performed By: #### 2 4323-8 ####[facility] LABCLIA [id number] [place] [address] Protein [Mass/Vol] 7.2 g/dL Normal 6.3-8.0 [facility] Comment on above: Order Comment: Speci men Type: BLOOD SPECIMENOrdering Facility: [facility] Address: [address] [place] [address] Performed By: #### 2 4323-8 ####[facility] LABCLIA [id number] [place] [address] Sodium [Moles/Vol] 138 mmol/L Normal 136-144 [facility] Comment on above: Order Comment: Speci men Type: BLOOD SPECIMENOrdering Facility: [facility] Address: [address] [place] [address] Performed By: #### 2 4323-8 ####[facility] LABCLIA [id number] [place] [address] Urea nitrogen [Mass/Vol] 15 mg/dL Normal 9-[address] [facility] Comment on above: Order Comment: Speci men Type: BLOOD SPECIMENOrdering Facility: [facility] Address: [address] [place] [address] Performed By: #### 2 4323-8 ####[facility] LABCLIA [id number] [place] [address] CNPNon 01-27-2024 CNPN Normal [facility] CNPNon 01-13-2024 CNPN Normal [facility] Family Medicine Office/Clini c Noteon 01-12-2024 [...] anxiety, # 90 tab(s), Refills(s) 0, Pharmacy: [facility], 169.5, cm, 01/12/24 12:03:00 EDT, Height/Length Dosing, 54.7, kg, 01/12/24 12:03:00 EDT, Weight Dosing alprazolam, 0.25 mg = 1 tab(s), Oral, TID, PRN for anxiety, # 90 tab(s), Refills(s) 0, Pharmacy: [facility], 169.5, cm, 10/08/23 9:02:00 EDT, Height/Length [...] (COVID-19) mRNA-1273 vaccine 11/15/2020 Recorded Normal [facility] Comment on above: Result Comment: Elec tronically Signed By: Cate EMNARD, Enrique Beatty\.br\Date and Time Signed: 01/12/24 12:31 EDT CNPNon 01-09-2024 CNPN Normal [facility] CNPNon 12-26-2023 CNPN Normal [facility] CBC W Auto Differential pane l (Bld)on 12-23-2023 Basophils (Bld) [#/Vol] [facility] Basophils/100 WBC (Bld) 0.1 % [facility] Differential cell count method Nom (Bld) Auto [facility] Eosinophils (Bld) [#/Vol] [facility] Eosinophils/100 WBC (Bld) 0.1 % [facility] Erythrocyte distribution width (RBC) [Ratio] 15.3 % High 11.5 - 15.0 % [facility] Hematocrit (Bld) [Volume fraction] 31.1 % Low 39.0 - 51.0 % [facility] Hemoglobin (Bld) [Mass/Vol] 10.0 g/dL Low 13.0 - 17.0 g/dL [facility] Immature granulocytes (Bld) [#/Vol] 0.07 10*3/uL [facility] Immature granulocytes/100 WBC (Bld) 0.9 % [facility] Interpretation and review of laboratory results Abnormal [facility] Lymphocytes (Bld) [#/Vol] 0.38 10*3/uL Low [facility] Lymphocytes/100 WBC (Bld) 4.6 % [facility] MCH (RBC) [Entitic mass] 31.0 pg 26.0 - 34.0 pg [facility] MCHC (RBC) [Mass/Vol] 32.2 g/dL 30.5 - 36.0 g/dL [facility] MCV (RBC) [Entitic vol] 96.3 fL 80.0 - 100.0 fL [facility] Monocytes (Bld) [#/Vol] 0.34 10*3/uL [facility] Monocytes/100 WBC (Bld) 4.1 % [facility] Neutrophils (Bld) [#/Vol] 7.39 10*3/uL [facility] Neutrophils/100 WBC (Bld) 90.2 % [facility] Nucleated RBC (Bld) [#/Vol] NINF [facility] Nucleated RBC/100 WBC (Bld) [Ratio] 0.0 % /100 WBC [facility] Platelet mean volume (Bld) [Entitic vol] 10.9 fL 9.0 - 12.7 fL [facility] Platelets (Bld) [#/Vol] 141 10*3/uL Low [facility] RBC (Bld) [#/Vol] 3.23 10*6/uL Low 4.20 - 6.00 m/uL [facility] WBC (Bld) [#/Vol] 8.20 10*3/uL [facility] Basophils (Bld) [#/Vol] 10*3/uL Normal <0.[address] [facility] Comment on above: Order Comment: Speci men Type: BLOOD SPECIMENOrdering Facility: [facility] Address: [address] [place] [address] Performed By: #### 5 7021-8 ####[facility] LABIA [id number] [place] [address] Basophils/100 WBC (Bld) 0.1 % Normal [facility] Comment on above: Order Comment: Speci men Type: BLOOD SPECIMENOrdering Facility: [facility] Address: [address] [place] [address] Performed By: #### 5 7021-8 ####[facility] LABCLIA [id number] [place] [address] Differential cell count method Nom (Bld) Auto Normal [facility] Comment on above: Order Comment: Speci men Type: BLOOD SPECIMENOrdering Facility: [facility] Address: [address] [place] [address] Performed By: #### 5 7021-8 ####[facility] LABCLIA [id number] [place] [address] Eosinophils (Bld) [#/Vol] 10*3/uL Normal <0.[address] [facility] Comment on above: Order Comment: Speci men Type: BLOOD SPECIMENOrdering Facility: [facility] Address: [address] [place] [address] Performed By: #### 5 7021-8 ####[facility] LABCLIA [id number] [place] [address] Eosinophils/100 WBC (Bld) 0.1 % Normal [facility] Comment on above: Order Comment: Speci men Type: BLOOD SPECIMENOrdering Facility: [facility] Address: [address] [place] [address] Performed By: #### 5 7021-8 ####[facility] LABCLIA [id number] [place] [address] Erythrocyte distribution width (RBC) [Ratio] 15.3 % High 11.5-15.[address] [facility] Comment on above: Order Comment: Speci men Type: BLOOD SPECIMENOrdering Facility: [facility] Address: [address] [place] [address] Performed By: #### 5 7021-8 ####[facility] LABCLIA [id number] [place] [address] Hematocrit (Bld) [Volume fraction] 31.1 % Low 39.0-51.[address] [facility] Comment on above: Order Comment: Speci men Type: BLOOD SPECIMENOrdering Facility: [facility] Address: [address] [place] [address] Performed By: #### 5 7021-8 ####[facility] LABCLIA [id number] [place] [address] Hemoglobin (Bld) [Mass/Vol] 10.0 g/dL Low 13.0-17.[address] [facility] Comment on above: Order Comment: Speci men Type: BLOOD SPECIMENOrdering Facility: [facility] Address: [address] [place] [address] Performed By: #### 5 7021-8 ####[facility] LABCLIA [id number] [place] [address] Immature granulocytes (Bld) [#/Vol] 0.07 10*3/uL Normal <0.[address] [facility] Comment on above: Order Comment: Speci men Type: BLOOD SPECIMENOrdering Facility: [facility] Address: [address] [place] [address] Performed By: #### 5 7021-8 ####[facility] LABCLIA [id number] [place] [address] Immature granulocytes/100 WBC (Bld) 0.9 % Normal [facility] Comment on above: Order Comment: Speci men Type: BLOOD SPECIMENOrdering Facility: [facility] Address: [address] [place] [address] Performed By: #### 5 7021-8 ####[facility] LABCLIA [id number] [place] [address] Lymphocytes (Bld) [#/Vol] 0.38 10*3/uL Low 1.00-4.[address] [facility] Comment on above: Order Comment: Speci men Type: BLOOD SPECIMENOrdering Facility: [facility] Address: [address] [place] [address] Performed By: #### 5 7021-8 ####[facility] LABCLIA [id number] [place] [address] Lymphocytes/100 WBC (Bld) 4.6 % Normal [facility] Comment on above: Order Comment: Speci men Type: BLOOD SPECIMENOrdering Facility: [facility] Address: [address] [place] [address] Performed By: #### 5 7021-8 ####[facility] LABCLIA [id number] [place] [address] MCH (RBC) [Entitic mass] 31.0 pg Normal 26.0-34.[address] [facility] Comment on above: Order Comment: Speci men Type: BLOOD SPECIMENOrdering Facility: [facility] Address: [address] [place] [address] Performed By: #### 5 7021-8 ####[facility] LABCLIA [id number] [place] [address] MCHC (RBC) [Mass/Vol] 32.2 g/dL Normal 30.5-36.[address] [facility] Comment on above: Order Comment: Speci men Type: BLOOD SPECIMENOrdering Facility: [facility] Address: [address] [place] [address] Performed By: #### 5 7021-8 ####[facility] LABCLIA [id number] [place] [address] MCV (RBC) [Entitic vol] 96.3 fL Normal 80.0-100.[address] [facility] Comment on above: Order Comment: Speci men Type: BLOOD SPECIMENOrdering Facility: [facility] Address: [address] [place] [address] Performed By: #### 5 7021-8 ####[facility] LABCLIA [id number] [place] [address] Monocytes (Bld) [#/Vol] 0.34 10*3/uL Normal <0.[address] [facility] Comment on above: Order Comment: Speci men Type: BLOOD SPECIMENOrdering Facility: [facility] Address: [address] [place] [address] Performed By: #### 5 7021-8 ####[facility] LABCLIA [id number] [place] [address] Monocytes/100 WBC (Bld) 4.1 % Normal [facility] Comment on above: Order Comment: Speci men Type: BLOOD SPECIMENOrdering Facility: [facility] Address: [address] [place] [address] Performed By: #### 5 7021-8 ####[facility] LABCLIA [id number] [place] [address] Neutrophils (Bld) [#/Vol] 7.39 10*3/uL Normal 1.45-7.[address] [facility] Comment on above: Order Comment: Speci men Type: BLOOD SPECIMENOrdering Facility: [facility] Address: [address] [place] [address] Performed By: #### 5 7021-8 ####[facility] LABCLIA [id number] [place] [address] Neutrophils/100 WBC (Bld) 90.2 % Normal [facility] Comment on above: Order Comment: Speci men Type: BLOOD SPECIMENOrdering Facility: [facility] Address: [address] [place] [address] Performed By: #### 5 7021-8 ####[facility] LABCLIA [id number] [place] [address] Nucleated RBC (Bld) [#/Vol] 10*3/uL Normal <0.[address] [facility] Comment on above: Order Comment: Speci men Type: BLOOD SPECIMENOrdering Facility: [facility] Address: [address] [place] [address] Performed By: #### 5 7021-8 ####[facility] LABCLIA [id number] [place] [address] Nucleated RBC/100 WBC (Bld) [Ratio] 0.0 /100 WBC Normal [facility] Comment on above: Order Comment: Speci men Type: BLOOD SPECIMENOrdering Facility: [facility] Address: [address] [place] [address] Performed By: #### 5 7021-8 ####[facility] LABCLIA [id number] [place] [address] Platelet mean volume (Bld) [Entitic vol] 10.9 fL Normal 9.0-12.[address] [facility] Comment on above: Order Comment: Speci men Type: BLOOD SPECIMENOrdering Facility: [facility] Address: [address] [place] [address] Performed By: #### 5 7021-8 ####[facility] LABCLIA [id number] [place] [address] Platelets (Bld) [#/Vol] 141 10*3/uL Low 150-[address] [facility] Comment on above: Order Comment: Speci men Type: BLOOD SPECIMENOrdering Facility: [facility] Address: [address] [place] [address] Performed By: #### 5 7021-8 ####[facility] LABIA [id number] [place] [address] RBC (Bld) [#/Vol] 3.23 10*6/uL Low 4.20-6.00 [facility] Comment on above: Order Comment: Speci men Type: BLOOD SPECIMENOrdering Facility: [facility] Address: [address] [place] [address] Performed By: #### 5 7021-8 ####[facility] LABIA [id number] [place] [address] WBC (Bld) [#/Vol] 8.20 10*3/uL Normal 3.70-11.00 [facility] Comment on above: Order Comment: Speci men Type: BLOOD SPECIMENOrdering Facility: [facility] Address: [address] [place] [address] Performed By: #### 5 7021-8 ####[facility] LABIA [id number] [place] [address] CNOVSPon 12-23-2023 CNOVSP Normal [facility] metabolic 2000 panelOrdered By: [place] Viramontes on 12-23-2023 Albumin [Mass/Vol] 3.8 g/dL Low 3.9 - 4.9 g/dL Cl [facility] ALP [Catalytic activity/Vol] 38 U/L 38 - 113 U/L [facility] ALT [Catalytic activity/Vol] 14 U/L 10 - 54 U/L [facility] Anion gap [Moles/Vol] 8 mmol/L 8 - 15 mmol/L [facility] AST [Catalytic activity/Vol] 15 U/L 14 - 40 U/L [facility] Bilirubin [Mass/Vol] 0.6 mg/dL 0.2 - 1.3 mg/dL [facility] Calcium [Mass/Vol] 9.7 mg/dL 8.5 - 10.2 mg/dL [facility] Chloride [Moles/Vol] 101 mmol/L 98 - 107 mmol/L [facility] CO2 [Moles/Vol] 26 mmol/L 22 - 30 mmol/L [facility] Creatinine [Mass/Vol] 1.19 mg/dL 0.73 - 1.22 mg/dL [facility] GFR/1.73 sq M.predicted among non-blacks MDRD (S/P/Bld) [Vol rate/Area] 67 mL/min/{1.73_m2} - PINF [facility] Comment on above: Estimated Glomerular [...] 121 mg/dL High 74 - 99 mg/dL [facility] Comment on above: The [place] Diabete s Association (ADA) provides guidance for [...] Standards of Medical Care in Diabetes 2016, [place] Diabetes Association. Diabetes Care. 2016.39(Suppl 1). Interpretation and review of laboratory results Abnormal [facility] Potassium [Moles/Vol] 3.9 mmol/L 3.7 - 5.1 mmol/L [facility] Protein [Mass/Vol] 6.8 g/dL 6.3 - 8.0 g/dL [facility] Sodium [Moles/Vol] 135 mmol/L Low 136 - 144 mmol/L [facility] Urea nitrogen [Mass/Vol] 41 mg/dL High 9 - 24 mg/dL [facility] Comprehensive metabolic 2000 panelon 12-23-2023 Albumin [Mass/Vol] 3.8 g/dL Low 3.9-4.9 [facility] Comment on above: Order Comment: Speci men Type: BLOOD SPECIMENOrdering Facility: [facility] Address: [address] [place] [address] Performed By: #### 2 4323-8 ####[facility] LABCLIA [id number] [place] [address] ALP [Catalytic activity/Vol] 38 U/L Normal 38-[address] [facility] Comment on above: Order Comment: Speci men Type: BLOOD SPECIMENOrdering Facility: [facility] Address: [address] [place] [address] Performed By: #### 2 4323-8 ####[facility] LABCLIA [id number] [place] [address] ALT [Catalytic activity/Vol] 14 U/L Normal 10-[address] [facility] Comment on above: Order Comment: Speci men Type: BLOOD SPECIMENOrdering Facility: [facility] Address: [address] [place] [address] Performed By: #### 2 4323-8 ####[facility] LABCLIA [id number] [place] [address] Anion gap [Moles/Vol] 8 mmol/L Normal 8-[address] [facility] Comment on above: Order Comment: Speci men Type: BLOOD SPECIMENOrdering Facility: [facility] Address: [address] [place] [address] Performed By: #### 2 4323-8 ####[facility] LABCLIA [id number] [place] [address] AST [Catalytic activity/Vol] 15 U/L Normal 14-[address] [facility] Comment on above: Order Comment: Speci men Type: BLOOD SPECIMENOrdering Facility: [facility] Address: [address] [place] [address] Performed By: #### 2 4323-8 ####[facility] LABCLIA [id number] [place] [address] Bilirubin [Mass/Vol] 0.6 mg/dL Normal 0.2-1.3 [facility] Comment on above: Order Comment: Speci men Type: BLOOD SPECIMENOrdering Facility: [facility] Address: [address] [place] [address] Performed By: #### 2 4323-8 ####[facility] LABCLIA [id number] [place] [address] Calcium [Mass/Vol] 9.7 mg/dL Normal 8.5-10.2 [facility] Comment on above: Order Comment: Speci men Type: BLOOD SPECIMENOrdering Facility: [facility] Address: [address] [place] [address] Performed By: #### 2 4323-8 ####[facility] LABCLIA [id number] [place] [address] Chloride [Moles/Vol] 101 mmol/L Normal 98-107 [facility] Comment on above: Order Comment: Speci men Type: BLOOD SPECIMENOrdering Facility: [facility] Address: [address] [place] [address] Performed By: #### 2 4323-8 ####[facility] LABCLIA [id number] [place] [address] CO2 [Moles/Vol] 26 mmol/L Normal 22-[address] [facility] Comment on above: Order Comment: Speci men Type: BLOOD SPECIMENOrdering Facility: [facility] Address: [address] [place] [address] Performed By: #### 2 4323-8 ####[facility] LABCLIA [id number] [place] [address] Creatinine [Mass/Vol] 1.19 mg/dL Normal 0.73-1.[address] [facility] Comment on above: Order Comment: Speci men Type: BLOOD SPECIMENOrdering Facility: [facility] Address: [address] [place] [address] Performed By: #### 2 4323-8 ####[facility] LABCLIA [id number] [place] [address] Creatinine and Glomerular filtration rate.predicted panel (S/P/Bld) 67 mL/min/1.73m??? Normal >=[address] [facility] Comment on above: Order Comment: Speci men Type: BLOOD SPECIMENOrdering Facility: [facility] Address: [address] [place] [address] Result Comment: Landy mated Glomerular Filtration Rate [...] actual GFR. Performed By: #### 2 4323-8 ####[facility] LABCLIA [id number] [place] [address] Glucose [Mass/Vol] 121 mg/dL High 74-99 [facility] Comment on above: Order Comment: Speci shalom Type: BLOOD SPECIMENOrdering Facility: [facility] Address: [address] [id number] Result Comment: The [place] Diabetes Association (ADA) provides guidance for cutoff [...] Standards of Medical Care in Diabetes 2016, [place] [employer]. Diabetes Care. 2016.39(Suppl 1). Performed By: #### 2 4323-8 ####[facility] LABCLIA [id number] [place] [address] Potassium [Moles/Vol] 3.9 mmol/L Normal 3.7-5.[address] [facility] Comment on above: Order Comment: Speci men Type: BLOOD SPECIMENOrdering Facility: [facility] Address: [address] [place] [address] Performed By: #### 2 4323-8 ####[facility] LABCLIA [id number] [place] [address] Protein [Mass/Vol] 6.8 g/dL Normal 6.3-8.0 [facility] Comment on above: Order Comment: Speci men Type: BLOOD SPECIMENOrdering Facility: [facility] Address: [address] [place] [address] Performed By: #### 2 4323-8 ####[facility] LABCLIA [id number] [place] [address] Sodium [Moles/Vol] 135 mmol/L Low 136-144 [facility] Comment on above: Order Comment: Speci men Type: BLOOD SPECIMENOrdering Facility: [facility] Address: [address] [place] [address] Performed By: #### 2 4323-8 ####[facility] LABCLIA [id number] [place] [address] Urea nitrogen [Mass/Vol] 41 mg/dL High 9-[address] [facility] Comment on above: Order Comment: Speci men Type: BLOOD SPECIMENOrdering Facility: [facility] Address: [address] [place] [address] Performed By: #### 2 4323-8 ####[facility] LABCLIA [id number] [place] [address] CNOVon 12-22-2023 CNOV Normal [facility] CNOVon 12-16-2023 CNOV Normal [facility] CNPNon 12-16-2023 CNPN Normal [facility] CNOVon 12-10-2023 CNOV Normal [facility] CNOVon 12-03-2023 CNOV Normal [facility] CNPNon 12-03-2023 CNPN Normal [facility] CNOVon 12-02-2023 CNOV Normal [facility] CNOVSPon 12-02-2023 CNOVSP Normal [facility] CBC W Auto Differential pane l (Bld)on 11-25-2023 Basophils (Bld) [#/Vol] 0.03 10*3/uL Normal <0.[address] [facility] Comment on above: Order Comment: Speci men Type: BLOOD SPECIMENOrdering Facility: [facility] Address: [address] [place] [address] Performed By: #### 5 7021-8 ####[facility] LABCLIA [id number] [place] [address] Basophils/100 WBC (Bld) 0.4 % Normal [facility] Comment on above: Order Comment: Speci men Type: BLOOD SPECIMENOrdering Facility: [facility] Address: [address] [place] [address] Performed By: #### 5 7021-8 ####[facility] LABCLIA [id number] [place] [address] Differential cell count method Nom (Bld) Auto Normal [facility] Comment on above: Order Comment: Speci men Type: BLOOD SPECIMENOrdering Facility: [facility] Address: [address] [place] [address] Performed By: #### 5 7021-8 ####[facility] LABCLIA [id number] [place] [address] Eosinophils (Bld) [#/Vol] 0.08 10*3/uL Normal <0.[address] [facility] Comment on above: Order Comment: Speci men Type: BLOOD SPECIMENOrdering Facility: [facility] Address: [address] [place] [address] Performed By: #### 5 7021-8 ####[facility] LABCLIA [id number] [place] [address] Eosinophils/100 WBC (Bld) 1.1 % Normal [facility] Comment on above: Order Comment: Speci men Type: BLOOD SPECIMENOrdering Facility: [facility] Address: [address] [place] [address] Performed By: #### 5 7021-8 ####[facility] LABCLIA [id number] [place] [address] Erythrocyte distribution width (RBC) [Ratio] 14.9 % Normal 11.5-15.[address] [facility] Comment on above: Order Comment: Speci men Type: BLOOD SPECIMENOrdering Facility: [facility] Address: [address] [place] [address] Performed By: #### 5 7021-8 ####[facility] LABCLIA [id number] [place] [address] Hematocrit (Bld) [Volume fraction] 38.1 % Low 39.0-51.[address] [facility] Comment on above: Order Comment: Speci men Type: BLOOD SPECIMENOrdering Facility: [facility] Address: [address] [place] [address] Performed By: #### 5 7021-8 ####[facility] LABCLIA [id number] [place] [address] Hemoglobin (Bld) [Mass/Vol] 12.8 g/dL Low 13.0-17.[address] [facility] Comment on above: Order Comment: Speci men Type: BLOOD SPECIMENOrdering Facility: [facility] Address: [address] [place] [address] Performed By: #### 5 7021-8 ####[facility] LABCLIA [id number] [place] [address] Immature granulocytes (Bld) [#/Vol] 0.03 10*3/uL Normal <0.[address] [facility] Comment on above: Order Comment: Speci men Type: BLOOD SPECIMENOrdering Facility: [facility] Address: [address] [place] [address] Performed By: #### 5 7021-8 ####[facility] LABCLIA [id number] [place] [address] Immature granulocytes/100 WBC (Bld) 0.4 % Normal [facility] Comment on above: Order Comment: Speci men Type: BLOOD SPECIMENOrdering Facility: [facility] Address: [address] [place] [address] Performed By: #### 5 7021-8 ####[facility] LABCLIA [id number] [place] [address] Lymphocytes (Bld) [#/Vol] 0.66 10*3/uL Low 1.00-4.[address] [facility] Comment on above: Order Comment: Speci men Type: BLOOD SPECIMENOrdering Facility: [facility] Address: [address] [place] [address] Performed By: #### 5 7021-8 ####[facility] LABCLIA [id number] [place] [address] Lymphocytes/100 WBC (Bld) 9.4 % Normal [facility] Comment on above: Order Comment: Speci men Type: BLOOD SPECIMENOrdering Facility: [facility] Address: [address] [place] [address] Performed By: #### 5 7021-8 ####[facility] LABCLIA [id number] [place] [address] MCH (RBC) [Entitic mass] 31.0 pg Normal 26.0-34.[address] [facility] Comment on above: Order Comment: Speci men Type: BLOOD SPECIMENOrdering Facility: [facility] Address: [address] [place] [address] Performed By: #### 5 7021-8 ####[facility] LABCLIA [id number] [place] [address] MCHC (RBC) [Mass/Vol] 33.6 g/dL Normal 30.5-36.[address] [facility] Comment on above: Order Comment: Speci men Type: BLOOD SPECIMENOrdering Facility: [facility] Address: [address] [place] [address] Performed By: #### 5 7021-8 ####[facility] LABIA [id number] [place] [address] MCV (RBC) [Entitic vol] 92.3 fL Normal 80.0-100.[address] [facility] Comment on above: Order Comment: Speci men Type: BLOOD SPECIMENOrdering Facility: [facility] Address: [address] [place] [address] Performed By: #### 5 7021-8 ####[facility] LABCLIA [id number] [place] [address] Monocytes (Bld) [#/Vol] 1.02 10*3/uL High <0.[address] [facility] Comment on above: Order Comment: Speci men Type: BLOOD SPECIMENOrdering Facility: [facility] Address: [address] [place] [address] Performed By: #### 5 7021-8 ####[facility] LABIA [id number] [place] [address] Monocytes/100 WBC (Bld) 14.5 % Normal [facility] Comment on above: Order Comment: Speci men Type: BLOOD SPECIMENOrdering Facility: [facility] Address: [address] [place] [address] Performed By: #### 5 7021-8 ####[facility] LABCLIA [id number] [place] [address] Neutrophils (Bld) [#/Vol] 5.22 10*3/uL Normal 1.45-7.[address] [facility] Comment on above: Order Comment: Speci men Type: BLOOD SPECIMENOrdering Facility: [facility] Address: [address] [place] [address] Performed By: #### 5 7021-8 ####[facility] LABCLIA [id number] [place] [address] Neutrophils/100 WBC (Bld) 74.2 % Normal [facility] Comment on above: Order Comment: Speci men Type: BLOOD SPECIMENOrdering Facility: [facility] Address: [address] [place] [address] Performed By: #### 5 7021-8 ####[facility] LABCLIA [id number] [place] [address] Nucleated RBC (Bld) [#/Vol] 10*3/uL Normal <0.[address] [facility] Comment on above: Order Comment: Speci men Type: BLOOD SPECIMENOrdering Facility: [facility] Address: [address] [place] [address] Performed By: #### 5 7021-8 ####[facility] LABCLIA [id number] [place] [address] Nucleated RBC/100 WBC (Bld) [Ratio] 0.0 /100 WBC Normal [facility] Comment on above: Order Comment: Speci men Type: BLOOD SPECIMENOrdering Facility: [facility] Address: [address] [place] [address] Performed By: #### 5 7021-8 ####[facility] LABCLIA [id number] [place] [address] Platelet mean volume (Bld) [Entitic vol] 10.7 fL Normal 9.0-12.[address] [facility] Comment on above: Order Comment: Speci men Type: BLOOD SPECIMENOrdering Facility: [facility] Address: [address] [place] [address] Performed By: #### 5 7021-8 ####[facility] LABCLIA [id number] [place] [address] Platelets (Bld) [#/Vol] 225 10*3/uL Normal 150-[address] [facility] Comment on above: Order Comment: Speci men Type: BLOOD SPECIMENOrdering Facility: [facility] Address: [address] [place] [address] Performed By: #### 5 7021-8 ####[facility] LABIA [id number] [place] [address] RBC (Bld) [#/Vol] 4.13 10*6/uL Low 4.20-6.00 [facility] Comment on above: Order Comment: Speci men Type: BLOOD SPECIMENOrdering Facility: [facility] Address: [address] [place] [address] Performed By: #### 5 7021-8 ####[facility] LABIA [id number] [place] [address] WBC (Bld) [#/Vol] 7.04 10*3/uL Normal 3.70-11.00 [facility] Comment on above: Order Comment: Speci men Type: BLOOD SPECIMENOrdering Facility: [facility] Address: [address] [place] [address] Performed By: #### 5 7021-8 ####[facility] LABIA [id number] [place] [address] Comprehensive metabolic 2000 panelon 11-25-2023 Albumin [Mass/Vol] 3.8 g/dL Low 3.9-4.9 [facility] Comment on above: Order Comment: Speci men Type: BLOOD SPECIMENOrdering Facility: [facility] Address: [address] [place] [address] Performed By: #### 2 4323-8 ####[facility] LABCLIA [id number] [place] [address] ALP [Catalytic activity/Vol] 51 U/L Normal 38-[address] [facility] Comment on above: Order Comment: Speci men Type: BLOOD SPECIMENOrdering Facility: [facility] Address: [address] [place] [address] Performed By: #### 2 4323-8 ####[facility] LABCLIA [id number] [place] [address] ALT [Catalytic activity/Vol] 25 U/L Normal 10-[address] [facility] Comment on above: Order Comment: Speci men Type: BLOOD SPECIMENOrdering Facility: [facility] Address: [address] [place] [address] Performed By: #### 2 4323-8 ####[facility] LABCLIA [id number] [place] [address] Anion gap [Moles/Vol] 12 mmol/L Normal 9-[address] [facility] Comment on above: Order Comment: Speci men Type: BLOOD SPECIMENOrdering Facility: [facility] Address: [address] [place] [address] Performed By: #### 2 4323-8 ####[facility] LABCLIA [id number] [place] [address] AST [Catalytic activity/Vol] 18 U/L Normal 14-[address] [facility] Comment on above: Order Comment: Speci men Type: BLOOD SPECIMENOrdering Facility: [facility] Address: [address] [place] [address] Performed By: #### 2 4323-8 ####[facility] LABCLIA [id number] [place] [address] Bilirubin [Mass/Vol] 0.8 mg/dL Normal 0.2-1.3 [facility] Comment on above: Order Comment: Speci men Type: BLOOD SPECIMENOrdering Facility: [facility] Address: [address] [place] [address] Performed By: #### 2 4323-8 ####[facility] LABCLIA [id number] [place] [address] Calcium [Mass/Vol] 9.1 mg/dL Normal 8.5-10.2 [facility] Comment on above: Order Comment: Speci men Type: BLOOD SPECIMENOrdering Facility: [facility] Address: [address] [place] [address] Performed By: #### 2 4323-8 ####[facility] LABCLIA [id number] [place] [address] Chloride [Moles/Vol] 100 mmol/L Normal 97-105 [facility] Comment on above: Order Comment: Speci men Type: BLOOD SPECIMENOrdering Facility: [facility] Address: [address] [place] [address] Performed By: #### 2 4323-8 ####[facility] LABCLIA [id number] [place] [address] CO2 [Moles/Vol] 25 mmol/L Normal 22-[address] [facility] Comment on above: Order Comment: Speci men Type: BLOOD SPECIMENOrdering Facility: [facility] Address: [address] [place] [address] Performed By: #### 2 4323-8 ####[facility] LABCLIA [id number] [place] [address] Creatinine [Mass/Vol] 1.20 mg/dL Normal 0.73-1.[address] [facility] Comment on above: Order Comment: Speci men Type: BLOOD SPECIMENOrdering Facility: [facility] Address: [address] [place], [place] [address] Performed By: #### 2 4323-8 ####[facility] LABCLIA [id number] [place] [address] Creatinine and Glomerular filtration rate.predicted panel (S/P/Bld) 67 mL/min/1.73m??? Normal >=[address] [facility] Comment on above: Order Comment: Ajay rausch Type: BLOOD SPECIMENOrdering Facility: [facility] Address: [address] [place] [address] Result Comment: Landy mated Glomerular Filtration Rate [...] actual GFR. Performed By: #### 2 4323-8 ####[facility] LABCLIA [id number] [place] [address] Glucose [Mass/Vol] 100 mg/dL High 74-99 [facility] Comment on above: Order Comment: Ajay rausch Type: BLOOD SPECIMENOrdering Facility: [facility] Address: [address] [place] [address] Result Comment: The [place] [employer] (ADA) provides guidance for cutoff [...] Standards of Medical Care in Diabetes 2016, [employer] [employer]. Diabetes Care. 2016.39(Suppl 1). Performed By: #### 2 4323-8 ####[facility] LABCLIA [id number] [place] [address] Potassium [Moles/Vol] 3.9 mmol/L Normal 3.7-5.[address] [facility] Comment on above: Order Comment: Speci men Type: BLOOD SPECIMENOrdering Facility: [facility] Address: [address] [place] [address] Performed By: #### 2 4323-8 ####[facility] LABCLIA [id number] [place] [address] Protein [Mass/Vol] 7.3 g/dL Normal 6.3-8.0 [facility] Comment on above: Order Comment: Speci men Type: BLOOD SPECIMENOrdering Facility: [facility] Address: [address] [place] [address] Performed By: #### 2 4323-8 ####[facility] LABCLIA [id number] [place] [address] Sodium [Moles/Vol] 137 mmol/L Normal 136-144 [facility] Comment on above: Order Comment: Speci men Type: BLOOD SPECIMENOrdering Facility: [facility] Address: [address] [place] [address] Performed By: #### 2 4323-8 ####[facility] LABCLIA [id number] [place] [address] Urea nitrogen [Mass/Vol] 15 mg/dL Normal 9-[address] [facility] Comment on above: Order Comment: Speci men Type: BLOOD SPECIMENOrdering Facility: [facility] Address: [address] [place] [address] Performed By: #### 2 4323-8 ####[facility] LABIA [id number] [place] [address] NM PET/CT SKULL-THIGH SUBQon 11-25-2023 NM PET/CT SKULL-THIGH SUBQ Normal [facility] TSH SerPl-aCncon 11-25-2023 TSH Qn 3.890 m[IU]/L Normal 0.270-4.[address] [facility] Comment on above: Order Comment: Speci men Type: BLOOD SPECIMENOrdering Facility: [facility] Address: [address] [place], [place] [address] Performed By: #### 3 016-3 ####[facility] LABCLIA [id number] [facility] [id number] [id number] [place] CNPNon 11-24-2023 CNPN Normal [facility] CNOVon 11-21-2023 CNOV Normal [facility] CNPNon 11-11-2023 CNPN Normal [facility] CBC W Auto Differential pane l (Bld)on 11-04-2023 Basophils (Bld) [#/Vol] <0.11 k/uL [facility] Basophils/100 WBC (Bld) 0.4 % [facility] Differential cell count method Nom (Bld) Auto [facility] Eosinophils (Bld) [#/Vol] 0.16 10*3/uL <0.46 k/uL [facility] Eosinophils/100 WBC (Bld) 2.9 % [facility] Erythrocyte distribution width (RBC) [Ratio] 17.0 % High 11.5 - 15.0 % [facility] Hematocrit (Bld) [Volume fraction] 37.1 % Low 39.0 - 51.0 % [facility] Hemoglobin (Bld) [Mass/Vol] 12.5 g/dL Low 13.0 - 17.0 g/dL [facility] Immature granulocytes (Bld) [#/Vol] 0.03 10*3/uL <0.10 k/uL [facility] Immature granulocytes/100 WBC (Bld) 0.5 % [facility] Lymphocytes (Bld) [#/Vol] 0.86 10*3/uL Low 1.00 - 4.00 k/uL [facility] Lymphocytes/100 WBC (Bld) 15.4 % [facility] MCH (RBC) [Entitic mass] 30.9 pg 26.0 - 34.0 pg [facility] MCHC (RBC) [Mass/Vol] 33.7 g/dL 30.5 - 36.0 g/dL [facility] MCV (RBC) [Entitic vol] 91.6 fL 80.0 - 100.0 fL [facility] Monocytes (Bld) [#/Vol] 0.95 10*3/uL High <0.87 k/uL [facility] Monocytes/100 WBC (Bld) 17.0 % [facility] Neutrophils (Bld) [#/Vol] 3.57 10*3/uL 1.45 - 7.50 k/uL [facility] Neutrophils/100 WBC (Bld) 63.8 % [facility] Nucleated RBC (Bld) [#/Vol] <0.01 k/uL [facility] Nucleated RBC/100 WBC (Bld) [Ratio] 0.0 /100 WBC [facility] Platelet mean volume (Bld) [Entitic vol] 10.7 fL 9.0 - 12.7 fL [facility] Platelets (Bld) [#/Vol] 186 10*3/uL 150 - 400 k/uL [facility] RBC (Bld) [#/Vol] 4.05 10*6/uL Low 4.20 - 6.00 m/uL [facility] WBC (Bld) [#/Vol] 5.59 10*3/uL 3.70 - 11.00 k/u L [facility] Basophils (Bld) [#/Vol] 10*3/uL Normal <0.[address] [facility] Comment on above: Order Comment: Speci men Type: BLOOD SPECIMENOrdering Facility: [facility] Address: [address] [place] [address] Performed By: #### 5 7021-8 ####[facility] LABCLIA [id number] [place] [address] Basophils/100 WBC (Bld) 0.4 % Normal [facility] Comment on above: Order Comment: Speci men Type: BLOOD SPECIMENOrdering Facility: [facility] Address: [address] [place] [address] Performed By: #### 5 7021-8 ####[facility] LABCLIA [id number] [place] [address] Differential cell count method Nom (Bld) Auto Normal [facility] Comment on above: Order Comment: Speci men Type: BLOOD SPECIMENOrdering Facility: [facility] Address: [address] [place] [address] Performed By: #### 5 7021-8 ####[facility] LABCLIA [id number] [place] [address] Eosinophils (Bld) [#/Vol] 0.16 10*3/uL Normal <0.[address] [facility] Comment on above: Order Comment: Speci men Type: BLOOD SPECIMENOrdering Facility: [facility] Address: [address] [place] [address] Performed By: #### 5 7021-8 ####[facility] LABCLIA [id number] [place] [address] Eosinophils/100 WBC (Bld) 2.9 % Normal [facility] Comment on above: Order Comment: Speci men Type: BLOOD SPECIMENOrdering Facility: [facility] Address: [address] [place] [address] Performed By: #### 5 7021-8 ####[facility] LABIA [id number] [place] [address] Erythrocyte distribution width (RBC) [Ratio] 17.0 % High 11.5-15.[address] [facility] Comment on above: Order Comment: Speci men Type: BLOOD SPECIMENOrdering Facility: [facility] Address: [address] [place] [address] Performed By: #### 5 7021-8 ####[facility] LABCLIA [id number] [place] [address] Hematocrit (Bld) [Volume fraction] 37.1 % Low 39.0-51.[address] [facility] Comment on above: Order Comment: Speci men Type: BLOOD SPECIMENOrdering Facility: [facility] Address: [address] [place] [address] Performed By: #### 5 7021-8 ####[facility] LABIA [id number] [place] [address] Hemoglobin (Bld) [Mass/Vol] 12.5 g/dL Low 13.0-17.[address] [facility] Comment on above: Order Comment: Speci men Type: BLOOD SPECIMENOrdering Facility: [facility] Address: [address] [place] [address] Performed By: #### 5 7021-8 ####[facility] LABCLIA [id number] [place] [address] Immature granulocytes (Bld) [#/Vol] 0.03 10*3/uL Normal <0.[address] [facility] Comment on above: Order Comment: Speci men Type: BLOOD SPECIMENOrdering Facility: [facility] Address: [address] [place] [address] Performed By: #### 5 7021-8 ####[facility] LABIA [id number] [place] [address] Immature granulocytes/100 WBC (Bld) 0.5 % Normal [facility] Comment on above: Order Comment: Speci men Type: BLOOD SPECIMENOrdering Facility: [facility] Address: [address] [place] [address] Performed By: #### 5 7021-8 ####[facility] LABIA [id number] [place] [address] Lymphocytes (Bld) [#/Vol] 0.86 10*3/uL Low 1.00-4.[address] [facility] Comment on above: Order Comment: Speci men Type: BLOOD SPECIMENOrdering Facility: [facility] Address: [address] [place] [address] Performed By: #### 5 7021-8 ####[facility] LABCLIA [id number] [place] [address] Lymphocytes/100 WBC (Bld) 15.4 % Normal [facility] Comment on above: Order Comment: Speci men Type: BLOOD SPECIMENOrdering Facility: [facility] Address: [address] [place] [address] Performed By: #### 5 7021-8 ####[facility] LABIA [id number] [place] [address] MCH (RBC) [Entitic mass] 30.9 pg Normal 26.0-34.[address] [facility] Comment on above: Order Comment: Speci men Type: BLOOD SPECIMENOrdering Facility: [facility] Address: [address] [place] [address] Performed By: #### 5 7021-8 ####[facility] LABCLIA [id number] [place] [address] MCHC (RBC) [Mass/Vol] 33.7 g/dL Normal 30.5-36.[address] [facility] Comment on above: Order Comment: Speci men Type: BLOOD SPECIMENOrdering Facility: [facility] Address: [address] [place] [address] Performed By: #### 5 7021-8 ####[facility] LABCLIA [id number] [place] [address] MCV (RBC) [Entitic vol] 91.6 fL Normal 80.0-100.[address] [facility] Comment on above: Order Comment: Speci men Type: BLOOD SPECIMENOrdering Facility: [facility] Address: [address] [place] [address] Performed By: #### 5 7021-8 ####[facility] LABIA [id number] [place] [address] Monocytes (Bld) [#/Vol] 0.95 10*3/uL High <0.[address] [facility] Comment on above: Order Comment: Speci men Type: BLOOD SPECIMENOrdering Facility: [facility] Address: [address] [place] [address] Performed By: #### 5 7021-8 ####[facility] LABCLIA [id number] [place] [address] Monocytes/100 WBC (Bld) 17.0 % Normal [facility] Comment on above: Order Comment: Speci men Type: BLOOD SPECIMENOrdering Facility: [facility] Address: [address] [place] [address] Performed By: #### 5 7021-8 ####[facility] LABCLIA [id number] [place] [address] Neutrophils (Bld) [#/Vol] 3.57 10*3/uL Normal 1.45-7.[address] [facility] Comment on above: Order Comment: Speci men Type: BLOOD SPECIMENOrdering Facility: [facility] Address: [address] [place] [address] Performed By: #### 5 7021-8 ####[facility] LABCLIA [id number] [place] [address] Neutrophils/100 WBC (Bld) 63.8 % Normal [facility] Comment on above: Order Comment: Speci men Type: BLOOD SPECIMENOrdering Facility: [facility] Address: [address] [place] [address] Performed By: #### 5 7021-8 ####[facility] [facility] LABCL[facility] [id number] [place] [address] Nucleated RBC (Bld) [#/Vol] 10*3/uL Normal <0.[address] [facility] Comment on above: Order Comment: Speci men Type: BLOOD SPECIMENOrdering Facility: [facility] Address: [address] [place] [address] Performed By: #### 5 7021-8 ####[facility] LABCLIA [id number] [place] [address] Nucleated RBC/100 WBC (Bld) [Ratio] 0.0 /100 WBC Normal [facility] Comment on above: Order Comment: Speci men Type: BLOOD SPECIMENOrdering Facility: [facility] Address: [address] [place] [address] Performed By: #### 5 7021-8 ####[facility] LABIA [id number] [place] [address] Platelet mean volume (Bld) [Entitic vol] 10.7 fL Normal 9.0-12.[address] [facility] Comment on above: Order Comment: Speci men Type: BLOOD SPECIMENOrdering Facility: [facility] Address: [address] [place], [place] [address] Performed By: #### 5 7021-8 ####[facility] LABCLIA [id number] [place] [address] Platelets (Bld) [#/Vol] 186 10*3/uL Normal 150-[address] [facility] Comment on above: Order Comment: Speci men Type: BLOOD SPECIMENOrdering Facility: [facility] Address: [address] [place] [address] Performed By: #### 5 7021-8 ####[facility] LABCLIA [id number] [place] [address] RBC (Bld) [#/Vol] 4.05 10*6/uL Low 4.20-6.00 [facility] Comment on above: Order Comment: Speci men Type: BLOOD SPECIMENOrdering Facility: [facility] Address: [address] [place] [address] Performed By: #### 5 7021-8 ####[facility] LABIA [id number] [place] [address] WBC (Bld) [#/Vol] 5.59 10*3/uL Normal 3.70-11.00 [facility] Comment on above: Order Comment: Speci men Type: BLOOD SPECIMENOrdering Facility: [facility] Address: [address] [place] [address] Performed By: #### 5 7021-8 ####[facility] LABIA [id number] [place] [address] CNCNPATEDon 11-04-2023 CNCNPATED [address] [facility] CNOVSPon 11-04-2023 CNOVSP [address] [facility] CNPNon 11-04-2023 CNPN Normal [facility] Comprehensive metabolic 2000 panelon 11-04-2023 Albumin [Mass/Vol] 4.0 g/dL 3.9 - 4.9 g/dL [facility] ALP [Catalytic activity/Vol] 65 U/L 38 - 113 U/L [facility] ALT [Catalytic activity/Vol] 415 U/L High 10 - 54 U/L [facility] Anion gap [Moles/Vol] 14 mmol/L 9 - 18 mmol/L [facility] AST [Catalytic activity/Vol] 100 U/L High 14 - 40 U/L [facility] Bilirubin [Mass/Vol] 1.0 mg/dL 0.2 - 1.3 mg/dL [facility] Calcium [Mass/Vol] 9.9 mg/dL 8.5 - 10.2 mg/dL [facility] Chloride [Moles/Vol] 107 mmol/L High 97 - 105 mmol/L [facility] CO2 [Moles/Vol] 23 mmol/L 22 - 30 mmol/L [facility] Creatinine [Mass/Vol] 1.23 mg/dL High 0.73 - 1.22 mg/dL [facility] Estimated Glomerular Filtration Rate 65 mL/min/1.73m >=60 mL/min/1.73m [facility] Glucose [Mass/Vol] 95 mg/dL 74 - 99 mg/dL [facility] Potassium [Moles/Vol] 3.5 mmol/L Low 3.7 - 5.1 mmol/L [facility] Protein [Mass/Vol] 7.3 g/dL 6.3 - 8.0 g/dL [facility] Sodium [Moles/Vol] 144 mmol/L 136 - 144 mmol/L [facility] Urea nitrogen [Mass/Vol] 19 mg/dL 9 - 24 mg/dL [facility] Albumin [Mass/Vol] 4.0 g/dL Normal 3.9-4.9 [facility] Comment on above: Order Comment: Speci men Type: BLOOD SPECIMENOrdering Facility: [facility] Address: [address] [place] [address] Performed By: #### 2 4323-8 ####[facility] LABIA [id number] [place] [address] ALP [Catalytic activity/Vol] 65 U/L Normal 38-[address] [facility] Comment on above: Order Comment: Speci men Type: BLOOD SPECIMENOrdering Facility: [facility] Address: [address] [place] [address] Performed By: #### 2 4323-8 ####[facility] LABCLIA [id number] [place] [address] ALT [Catalytic activity/Vol] 415 U/L High 10-[address] [facility] Comment on above: Order Comment: Speci men Type: BLOOD SPECIMENOrdering Facility: [facility] Address: [address] [place] [address] Performed By: #### 2 4323-8 ####[facility] LABCLIA [id number] [place] [address] Anion gap [Moles/Vol] 14 mmol/L Normal 9-[address] [facility] Comment on above: Order Comment: Speci men Type: BLOOD SPECIMENOrdering Facility: [facility] Address: [address] [place] [address] Performed By: #### 2 4323-8 ####[facility] LABCLIA [id number] [place] [address] AST [Catalytic activity/Vol] 100 U/L High 14-[address] [facility] Comment on above: Order Comment: Speci men Type: BLOOD SPECIMENOrdering Facility: [facility] Address: [address] [place] [address] Performed By: #### 2 4323-8 ####[facility] LABCLIA [id number] [place] [address] Bilirubin [Mass/Vol] 1.0 mg/dL Normal 0.2-1.3 [facility] Comment on above: Order Comment: Speci men Type: BLOOD SPECIMENOrdering Facility: [facility] Address: [address] [place] [address] Performed By: #### 2 4323-8 ####[facility] LABCLIA [id number] [place] [address] Calcium [Mass/Vol] 9.9 mg/dL Normal 8.5-10.2 [facility] Comment on above: Order Comment: Speci men Type: BLOOD SPECIMENOrdering Facility: [facility] Address: [address] [place] [address] Performed By: #### 2 4323-8 ####[facility] LABCLIA [id number] [place] [address] Chloride [Moles/Vol] 107 mmol/L High 97-105 [facility] Comment on above: Order Comment: Speci men Type: BLOOD SPECIMENOrdering Facility: [facility] Address: [address] [place] [address] Performed By: #### 2 4323-8 ####[facility] LABCLIA [id number] [place] [address] CO2 [Moles/Vol] 23 mmol/L Normal 22-[address] [facility] Comment on above: Order Comment: Speci men Type: BLOOD SPECIMENOrdering Facility: [facility] Address: [address] [place] [address] Performed By: #### 2 4323-8 ####[facility] LABCLIA [id number] [place] [address] Creatinine [Mass/Vol] 1.23 mg/dL High 0.73-1.[address] [facility] Comment on above: Order Comment: Speci men Type: BLOOD SPECIMENOrdering Facility: [facility] Address: [address] [place] [address] Performed By: #### 2 4323-8 ####[facility] LABCLIA [id number] [place] [address] Creatinine and Glomerular filtration rate.predicted panel (S/P/Bld) 65 mL/min/1.73m??? Normal >=[address] [facility] Comment on above: Order Comment: Speci men Type: BLOOD SPECIMENOrdering Facility: [facility] Address: [address] [place] [address] Result Comment: Landy mated Glomerular Filtration Rate [...] actual GFR. Performed By: #### 2 4323-8 ####[facility] LABCLIA [id number] [place] [address] Glucose [Mass/Vol] 95 mg/dL Normal 74-99 [facility] Comment on above: Order Comment: Speci men Type: BLOOD SPECIMENOrdering Facility: [facility] Address: [address] [place] [address] Result Comment: The [place] [employer] (ADA) provides guidance for cutoff [...] Standards of Medical Care in Diabetes 2016, [place] [employer]. Diabetes Care. 2016.39(Suppl 1). Performed By: #### 2 4323-8 ####[facility] LABCLIA [id number] [place] [address] Potassium [Moles/Vol] 3.5 mmol/L Low 3.7-5.[address] [facility] Comment on above: Order Comment: Speci men Type: BLOOD SPECIMENOrdering Facility: [facility] Address: [address] [place] [address] Performed By: #### 2 4323-8 ####[facility] LABCLIA [id number] [place] [address] Protein [Mass/Vol] 7.3 g/dL Normal 6.3-8.0 [facility] Comment on above: Order Comment: Speci men Type: BLOOD SPECIMENOrdering Facility: [facility] Address: [address] [place] [address] Performed By: #### 2 4323-8 ####[facility] LABCLIA [id number] [place] [address] Sodium [Moles/Vol] 144 mmol/L Normal 136-144 [facility] Comment on above: Order Comment: Speci men Type: BLOOD SPECIMENOrdering Facility: [facility] Address: [address] [place], [place] [address] Performed By: #### 2 4323-8 ####[facility] LABCLIA [id number] [place] [address] Urea nitrogen [Mass/Vol] 19 mg/dL Normal 9-[address] [facility] Comment on above: Order Comment: Speci men Type: BLOOD SPECIMENOrdering Facility: [facility] Address: [address] [place], [place] [address] Performed By: #### 2 4323-8 ####[facility] LABCLIA [id number] [place] [address] CNPNon 10-24-2023 CNPN [address] [facility] CNPNon 10-21-2023 CNPN Normal [facility] CT CHEST W IVCONon CT CHEST W IVCON Normal [facility] CT Chest W contrast Anoop [facility] CBC W Auto Differential pane l (Bld)on 10-20-2023 Basophils (Bld) [#/Vol] <0.11 k/uL [facility] Basophils/100 WBC (Bld) 0.4 % [facility] Differential cell count method Nom (Bld) Auto [facility] Eosinophils (Bld) [#/Vol] 0.07 10*3/uL <0.46 k/uL [facility] Eosinophils/100 WBC (Bld) 1.3 % [facility] Erythrocyte distribution width (RBC) [Ratio] 15.9 % High 11.5 - 15.0 % [facility] Hematocrit (Bld) [Volume fraction] 40.6 % 39.0 - 51.0 % [facility] Hemoglobin (Bld) [Mass/Vol] 13.6 g/dL 13.0 - 17.0 g/dL [facility] Immature granulocytes (Bld) [#/Vol] 0.03 10*3/uL <0.10 k/uL [facility] Immature granulocytes/100 WBC (Bld) 0.5 % [facility] Lymphocytes (Bld) [#/Vol] 1.04 10*3/uL 1.00 - 4.00 k/uL [facility] Lymphocytes/100 WBC (Bld) 18.6 % [facility] MCH (RBC) [Entitic mass] 30.4 pg 26.0 - 34.0 pg [facility] MCHC (RBC) [Mass/Vol] 33.5 g/dL 30.5 - 36.0 g/dL [facility] MCV (RBC) [Entitic vol] 90.6 fL 80.0 - 100.0 fL [facility] Monocytes (Bld) [#/Vol] 0.78 10*3/uL <0.87 k/uL [facility] Monocytes/100 WBC (Bld) 13.9 % [facility] Neutrophils (Bld) [#/Vol] 3.66 10*3/uL 1.45 - 7.50 k/uL [facility] Neutrophils/100 WBC (Bld) 65.3 % [facility] Nucleated RBC (Bld) [#/Vol] <0.01 k/uL [facility] Nucleated RBC/100 WBC (Bld) [Ratio] 0.0 /100 WBC [facility] Platelet mean volume (Bld) [Entitic vol] 10.7 fL 9.0 - 12.7 fL [facility] Platelets (Bld) [#/Vol] 214 10*3/uL 150 - 400 k/uL [facility] RBC (Bld) [#/Vol] 4.48 10*6/uL 4.20 - 6.00 m/uL [facility] WBC (Bld) [#/Vol] 5.60 10*3/uL 3.70 - 11.00 k/u L [facility] Basophils (Bld) [#/Vol] 10*3/uL Normal <0.[address] [facility] Comment on above: Order Comment: Speci men Type: BLOOD SPECIMENOrdering Facility: [facility] Address: [address] [place] [address] Performed By: #### 5 7021-8 ####[facility] LABCLIA [id number] [place] [address] Basophils/100 WBC (Bld) 0.4 % Normal [facility] Comment on above: Order Comment: Speci men Type: BLOOD SPECIMENOrdering Facility: [facility] Address: [address] [place] [address] Performed By: #### 5 7021-8 ####[facility] LABCLIA [id number] [place] [address] Differential cell count method Nom (Bld) Auto Normal [facility] Comment on above: Order Comment: Speci men Type: BLOOD SPECIMENOrdering Facility: [facility] Address: [address] [place] [address] Performed By: #### 5 7021-8 ####[facility] LABCLIA [id number] [place] [address] Eosinophils (Bld) [#/Vol] 0.07 10*3/uL Normal <0.[address] [facility] Comment on above: Order Comment: Speci men Type: BLOOD SPECIMENOrdering Facility: [facility] Address: [address] [place] [address] Performed By: #### 5 7021-8 ####[facility] LABCLIA [id number] [place] [address] Eosinophils/100 WBC (Bld) 1.3 % Normal [facility] Comment on above: Order Comment: Speci men Type: BLOOD SPECIMENOrdering Facility: [facility] Address: [address] [place] [address] Performed By: #### 5 7021-8 ####[facility] LABCLIA [id number] [place] [address] Erythrocyte distribution width (RBC) [Ratio] 15.9 % High 11.5-15.[address] [facility] Comment on above: Order Comment: Speci men Type: BLOOD SPECIMENOrdering Facility: [facility] Address: [address] [place] [address] Performed By: #### 5 7021-8 ####[facility] LABCLIA [id number] [place] [address] Hematocrit (Bld) [Volume fraction] 40.6 % Normal 39.0-51.[address] [facility] Comment on above: Order Comment: Speci men Type: BLOOD SPECIMENOrdering Facility: [facility] Address: [address] [place] [address] Performed By: #### 5 7021-8 ####[facility] LABCLIA [id number] [place] [address] Hemoglobin (Bld) [Mass/Vol] 13.6 g/dL Normal 13.0-17.[address] [facility] Comment on above: Order Comment: Speci men Type: BLOOD SPECIMENOrdering Facility: [facility] Address: [address] [place] [address] Performed By: #### 5 7021-8 ####[facility] LABCLIA [id number] [place] [address] Immature granulocytes (Bld) [#/Vol] 0.03 10*3/uL Normal <0.[address] [facility] Comment on above: Order Comment: Speci men Type: BLOOD SPECIMENOrdering Facility: [facility] Address: [address] [place] [address] Performed By: #### 5 7021-8 ####[facility] LABCLIA [id number] [place] [address] Immature granulocytes/100 WBC (Bld) 0.5 % Normal [facility] Comment on above: Order Comment: Speci men Type: BLOOD SPECIMENOrdering Facility: [facility] Address: [address] [place] [address] Performed By: #### 5 7021-8 ####[facility] LABCLIA [id number] [place] [address] Lymphocytes (Bld) [#/Vol] 1.04 10*3/uL Normal 1.00-4.[address] [facility] Comment on above: Order Comment: Speci men Type: BLOOD SPECIMENOrdering Facility: [facility] Address: [address] [place] [address] Performed By: #### 5 7021-8 ####[facility] LABCLIA [id number] [place] [address] Lymphocytes/100 WBC (Bld) 18.6 % Normal [facility] Comment on above: Order Comment: Speci men Type: BLOOD SPECIMENOrdering Facility: [facility] Address: [address] [place] [address] Performed By: #### 5 7021-8 ####[facility] LABIA [id number] [place] [address] MCH (RBC) [Entitic mass] 30.4 pg Normal 26.0-34.[address] [facility] Comment on above: Order Comment: Speci men Type: BLOOD SPECIMENOrdering Facility: [facility] Address: [address] [place] [address] Performed By: #### 5 7021-8 ####[facility] LABCLIA [id number] [place] [address] MCHC (RBC) [Mass/Vol] 33.5 g/dL Normal 30.5-36.[address] [facility] Comment on above: Order Comment: Speci men Type: BLOOD SPECIMENOrdering Facility: [facility] Address: [address] [place] [address] Performed By: #### 5 7021-8 ####[facility] LABIA [id number] [place] [address] MCV (RBC) [Entitic vol] 90.6 fL Normal 80.0-100.[address] [facility] Comment on above: Order Comment: Speci men Type: BLOOD SPECIMENOrdering Facility: [facility] Address: [address] [place] [address] Performed By: #### 5 7021-8 ####[facility] LABCLIA [id number] [place] [address] Monocytes (Bld) [#/Vol] 0.78 10*3/uL Normal <0.[address] [facility] Comment on above: Order Comment: Speci men Type: BLOOD SPECIMENOrdering Facility: [facility] Address: [address] [place] [address] Performed By: #### 5 7021-8 ####[facility] LABCLIA [id number] [place] [address] Monocytes/100 WBC (Bld) 13.9 % Normal [facility] Comment on above: Order Comment: Speci men Type: BLOOD SPECIMENOrdering Facility: [facility] Address: [address] [place] [address] Performed By: #### 5 7021-8 ####[facility] LABCLIA [id number] [place] [address] Neutrophils (Bld) [#/Vol] 3.66 10*3/uL Normal 1.45-7.[address] [facility] Comment on above: Order Comment: Speci men Type: BLOOD SPECIMENOrdering Facility: [facility] Address: [address] [place] [address] Performed By: #### 5 7021-8 ####[facility] LABCLIA [id number] [place] [address] Neutrophils/100 WBC (Bld) 65.3 % Normal [facility] Comment on above: Order Comment: Speci men Type: BLOOD SPECIMENOrdering Facility: [facility] Address: [address] [place] [address] Performed By: #### 5 7021-8 ####[facility] LABCLIA [id number] [place] [address] Nucleated RBC (Bld) [#/Vol] 10*3/uL Normal <0.[address] [facility] Comment on above: Order Comment: Speci men Type: BLOOD SPECIMENOrdering Facility: [facility] Address: [address] [place] [address] Performed By: #### 5 7021-8 ####[facility] LABCLIA [id number] [place] [address] Nucleated RBC/100 WBC (Bld) [Ratio] 0.0 /100 WBC Normal [facility] Comment on above: Order Comment: Speci men Type: BLOOD SPECIMENOrdering Facility: [facility] Address: [address] [place] [address] Performed By: #### 5 7021-8 ####[facility] LABCLIA [id number] [place] [address] Platelet mean volume (Bld) [Entitic vol] 10.7 fL Normal 9.0-12.[address] [facility] Comment on above: Order Comment: Speci men Type: BLOOD SPECIMENOrdering Facility: [facility] Address: [address] [place] [address] Performed By: #### 5 7021-8 ####[facility] LABCLIA [id number] [place] [address] Platelets (Bld) [#/Vol] 214 10*3/uL Normal 150-[address] [facility] Comment on above: Order Comment: Speci men Type: BLOOD SPECIMENOrdering Facility: [facility] Address: [address] [place] [address] Performed By: #### 5 7021-8 ####[facility] LABCLIA [id number] [place] [address] RBC (Bld) [#/Vol] 4.48 10*6/uL Normal 4.20-6.00 [facility] Comment on above: Order Comment: Speci men Type: BLOOD SPECIMENOrdering Facility: [facility] Address: [address] [place] [address] Performed By: #### 5 7021-8 ####[facility] LABCLIA [id number] [place] [address] WBC (Bld) [#/Vol] 5.60 10*3/uL Normal 3.70-11.00 [facility] Comment on above: Order Comment: Speci men Type: BLOOD SPECIMENOrdering Facility: [facility] Address: [facility] [place] [address] Performed By: #### 5 7021-8 ####[facility] LABCLIA [id number] [place] [address] CNOVSPon 10-20-2023 CNOVSP Normal [facility] metabolic 2000 panelon 10-20-2023 Albumin [Mass/Vol] 4.6 g/dL 3.9 - 4.9 g/dL [facility] ALP [Catalytic activity/Vol] 55 U/L 38 - 113 U/L [facility] ALT [Catalytic activity/Vol] 48 U/L 10 - 54 U/L [facility] Anion gap [Moles/Vol] 15 mmol/L 9 - 18 mmol/L [facility] AST [Catalytic activity/Vol] 30 U/L 14 - 40 U/L [facility] Bilirubin [Mass/Vol] 0.6 mg/dL 0.2 - 1.3 mg/dL [facility] Calcium [Mass/Vol] 10.9 mg/dL High 8.5 - 10.2 mg/dL [facility] Chloride [Moles/Vol] 105 mmol/L 97 - 105 mmol/L [facility] CO2 [Moles/Vol] 26 mmol/L 22 - 30 mmol/L [facility] Creatinine [Mass/Vol] 1.28 mg/dL High 0.73 - 1.22 mg/dL [facility] Estimated Glomerular Filtration Rate 62 mL/min/1.73m >=60 mL/min/1.73m [facility] Glucose [Mass/Vol] 95 mg/dL 74 - 99 mg/dL [facility] Potassium [Moles/Vol] 4.2 mmol/L 3.7 - 5.1 mmol/L [facility] Protein [Mass/Vol] 8.0 g/dL 6.3 - 8.0 g/dL [facility] Sodium [Moles/Vol] 146 mmol/L High 136 - 144 mmol/L [facility] Urea nitrogen [Mass/Vol] 25 mg/dL High 9 - 24 mg/dL [facility] Albumin [Mass/Vol] 4.6 g/dL Normal 3.9-4.9 [facility] Comment on above: Order Comment: Speci men Type: BLOOD SPECIMENOrdering Facility: [facility] Address: [address] [place] [address] Performed By: #### 2 4323-8 ####[facility] LABCLIA [id number] [place] [address] ALP [Catalytic activity/Vol] 55 U/L Normal 38-[address] [facility] Comment on above: Order Comment: Speci men Type: BLOOD SPECIMENOrdering Facility: [facility] Address: [address] [place] [address] Performed By: #### 2 4323-8 ####[facility] LABCLIA [id number] [place] [address] ALT [Catalytic activity/Vol] 48 U/L Normal 10-[address] [facility] Comment on above: Order Comment: Speci men Type: BLOOD SPECIMENOrdering Facility: [facility] Address: [address] [place] [address] Performed By: #### 2 4323-8 ####[facility] LABCLIA [id number] [place] [address] Anion gap [Moles/Vol] 15 mmol/L Normal 9-[address] [facility] Comment on above: Order Comment: Speci men Type: BLOOD SPECIMENOrdering Facility: [facility] Address: [address] [place] [address] Performed By: #### 2 4323-8 ####[facility] LABCLIA [id number] [place] [address] AST [Catalytic activity/Vol] 30 U/L Normal 14-[address] [facility] Comment on above: Order Comment: Speci men Type: BLOOD SPECIMENOrdering Facility: [facility] Address: [address] [place] [address] Performed By: #### 2 4323-8 ####[facility] LABCLIA [id number] [place] [address] Bilirubin [Mass/Vol] 0.6 mg/dL Normal 0.2-1.3 [facility] Comment on above: Order Comment: Speci men Type: BLOOD SPECIMENOrdering Facility: [facility] Address: [address] [place], [place] [address] Performed By: #### 2 4323-8 ####[facility] LABCLIA [id number] [place] [address] Calcium [Mass/Vol] 10.9 mg/dL High 8.5-10.2 [facility] Comment on above: Order Comment: Speci men Type: BLOOD SPECIMENOrdering Facility: [facility] Address: [address] [place] [address] Result Comment: RECH ECKED JT Performed By: #### 2 4323-8 ####[facility] LABCLIA [id number] [place] [address] Chloride [Moles/Vol] 105 mmol/L Normal 97-105 [facility] Comment on above: Order Comment: Speci men Type: BLOOD SPECIMENOrdering Facility: [facility] Address: [address] [place] [address] Performed By: #### 2 4323-8 ####[facility] LABCLIA [id number] [place] [address] CO2 [Moles/Vol] 26 mmol/L Normal 22-[address] [facility] Comment on above: Order Comment: Speci men Type: BLOOD SPECIMENOrdering Facility: [facility] Address: [address] [place] [address] Performed By: #### 2 4323-8 ####[facility] LABCLIA [id number] [place] [address] Creatinine [Mass/Vol] 1.28 mg/dL High 0.73-1.[address] [facility] Comment on above: Order Comment: Ajay rausch Type: BLOOD SPECIMENOrdering Facility: [facility] Address: [address] [place] [address] Performed By: #### 2 4323-8 ####[facility] LABCLIA [id number] [place] [address] Creatinine and Glomerular filtration rate.predicted panel (S/P/Bld) 62 mL/min/1.73m??? Normal >=[address] [facility] Comment on above: Order Comment: Ajay rausch Type: BLOOD SPECIMENOrdering Facility: [facility] Address: [address] [place] [address] Result Comment: Landy mated Glomerular Filtration Rate [...] actual GFR. Performed By: #### 2 4323-8 ####[facility] LABIA [id number] [place] [address] Glucose [Mass/Vol] 95 mg/dL Normal 74-99 [facility] Comment on above: Order Comment: Ajay rausch Type: BLOOD SPECIMENOrdering Facility: [facility] Address: [address] [place], [place] [address] Result Comment: The [place] Diabetes [employer] (ADA) provides guidance for cutoff [...] Standards of Medical Care in Diabetes 2016, [employer] [employer]. Diabetes Care. 2016.39(Suppl 1). Performed By: #### 2 4323-8 ####[facility] LABCLIA [id number] [place] [address] Potassium [Moles/Vol] 4.2 mmol/L Normal 3.7-5.[address] [facility] Comment on above: Order Comment: Speci men Type: BLOOD SPECIMENOrdering Facility: [facility] Address: [address] [place] [address] Performed By: #### 2 4323-8 ####[facility] LABIA [id number] [place] [address] Protein [Mass/Vol] 8.0 g/dL Normal 6.3-8.0 [facility] Comment on above: Order Comment: Speci men Type: BLOOD SPECIMENOrdering Facility: [facility] Address: [address] [place] [address] Performed By: #### 2 4323-8 ####[facility] LABCLIA [id number] [place] [address] Sodium [Moles/Vol] 146 mmol/L High 136-144 [facility] Comment on above: Order Comment: Speci men Type: BLOOD SPECIMENOrdering Facility: [facility] Address: [address] [place] [address] Performed By: #### 2 4323-8 ####[facility] LABCLIA [id number] [place] [address] Urea nitrogen [Mass/Vol] 25 mg/dL High 9-[address] [facility] Comment on above: Order Comment: Speci men Type: BLOOD SPECIMENOrdering Facility: [facility] Address: [address] [place] [address] Performed By: #### 2 4323-8 ####[facility] LABCLIA [id number] [place] [address] TSH BLDon 10-20-2023 TSH Qn 4.200 m[IU]/L 0.270 - 4.200 mIU/L Cl [facility] TSH SerPl-aCncon 10-20-2023 TSH Qn 4.200 m[IU]/L Normal 0.270-4.[address] [facility] Comment on above: Order Comment: Speci men Type: BLOOD SPECIMENOrdering Facility: [facility] Address: [address] [place], [place] [address] Performed By: #### 3 016-3 ####[facility] LABCLIA [id number] [address] [place] [address] [id number] [id number] [facility] Ambulatory Visit Summaryon 0 10-15-2023 Ambulatory [...] 11:20 AM EDT With: Enrique [place] Where: [facility] [place] Normal [address] [place] [address]- \.br\ Medications\.br\ What How Much When Instructions\.br\ Unchanged alprazolam (alprazolam 0.25 mg Tab) 1 Tablets By Mouth 3 times a day as needed for for anxiety\.br\ Unchanged amoxicillin (amoxicillin 875 mg Tab) 1 Tablets By Mouth 2 times a day Duration: 10 Days Pickup at [facility]\.br\ Unchanged atorvastatin (atorvastatin 40 mg Tab) [...] 90 tab(s), 0 Refill(s) \.br\ Pharmacy Information\.br\ [facility]: [address] [place], [place] [id number] [phone]\.br\ Medications and Immunizations Administered\.br\ Given\.br\ triamcinolone acetonide [...] for choosing us for your care.\.br\ \.br\ [facility] Consenton 10-15-2023 Consent [id number] #1.00TIFF Normal [facility] Medicine Office/Clini c Noteon 10-15-2023 [facility] Medicine Office/Clinic Note HPI Staff Cristal [...] anxiety, # 30 tab(s), Refills(s) 0, Pharmacy: [facility], 169.6, cm, 03/17/23 10:54:00 EDT, Height/Length Dosing, 62, kg, 03/17/23 10:54:00 EDT, Weight Dosing amoxicillin, 875 mg = 1 tab(s), Oral, BID, X 10 day(s), # 20 tab(s), Refills(s) 0, Pharmacy: [facility], 169.5, cm, 10/15/23 11:53:00 EDT, Height/Length [...] (COVID-19) mRNA-1273 vaccine 11/15/2020 Recorded Normal [facility] Comment on above: Result Comment: Elec [...] 11:20 AM EDT With: Enrique [place] Where: [facility] Normal [address] [place] [address]- \.br\ Medications\.br\ What How Much When Instructions\.br\ Unchanged alprazolam (alprazolam 0.25 mg Tab) 1 Tablets By Mouth 3 times a day as needed for for anxiety Pickup at [facility]\.br\ Unchanged alprazolam (alprazolam 0.25 mg Tab) [...] 90 tab(s), 0 Refill(s) \.br\ Pharmacy Information\.br\ [facility]: [address] [place], [place] [phone]\.br\ Allergies\.br\ No Known Allergies\.br\ Problems\.br\ Ongoing - [...] choosing us for your care.\.br\ \.br\ [facility] Medicine Office/Clini c Noteon 10-08-2023 [...] days., # 45 tab(s), Refills(s) 0, Pharmacy: [facility], 169.5, cm, 09/02/23 11:42:00 EST, Height/Anuj... Orders: alprazolam, 0.25 mg = 1 tab(s), Oral, TID, PRN for anxiety, # 90 tab(s), Refills(s) 0, Pharmacy: [facility], 169.5, cm, 10/08/23 9:02:00 EDT, Height/Length [...] SARS-CoV-2 (COVID-19) mRNA-1273 vaccine 11/15/2020 Recorded Normal [facility] Comment on above: Result Comment: Elec tronically Signed By: Enrique [place]\.br\Date and Time Signed: 10/08/23 09:14 EDT Medication Consenton 024 Medication Consent [id number] #1.00TIFF Normal [facility] CBC W Auto Differential pane l (Bld)on 09-22-2023 Basophils (Bld) [#/Vol] 0.03 10*3/uL <0.11 k/uL [facility] Basophils/100 WBC (Bld) 0.7 % [facility] Differential cell count method Nom (Bld) Auto [facility] Eosinophils (Bld) [#/Vol] 0.05 10*3/uL <0.46 k/uL [facility] Eosinophils/100 WBC (Bld) 1.2 % [facility] Erythrocyte distribution width (RBC) [Ratio] 17.0 % High 11.5 - 15.0 % [facility] Hematocrit (Bld) [Volume fraction] 40.7 % 39.0 - 51.0 % [facility] Hemoglobin (Bld) [Mass/Vol] 13.5 g/dL 13.0 - 17.0 g/dL [facility] Immature granulocytes (Bld) [#/Vol] 0.03 10*3/uL <0.10 k/uL [facility] Immature granulocytes/100 WBC (Bld) 0.7 % [facility] Lymphocytes (Bld) [#/Vol] 0.87 10*3/uL Low 1.00 - 4.00 k/uL [facility] Lymphocytes/100 WBC (Bld) 21.6 % [facility] MCH (RBC) [Entitic mass] 30.2 pg 26.0 - 34.0 pg [facility] MCHC (RBC) [Mass/Vol] 33.2 g/dL 30.5 - 36.0 g/dL [facility] MCV (RBC) [Entitic vol] 91.1 fL 80.0 - 100.0 fL [facility] Monocytes (Bld) [#/Vol] 0.73 10*3/uL <0.87 k/uL [facility] Monocytes/100 WBC (Bld) 18.1 % [facility] Neutrophils (Bld) [#/Vol] 2.32 10*3/uL 1.45 - 7.50 k/uL [facility] Neutrophils/100 WBC (Bld) 57.7 % [facility] Nucleated RBC (Bld) [#/Vol] <0.01 k/uL [facility] Nucleated RBC/100 WBC (Bld) [Ratio] 0.0 /100 WBC [facility] Platelet mean volume (Bld) [Entitic vol] 11.0 fL 9.0 - 12.7 fL [facility] Platelets (Bld) [#/Vol] 180 10*3/uL 150 - 400 k/uL [facility] RBC (Bld) [#/Vol] 4.47 10*6/uL 4.20 - 6.00 m/uL [facility] WBC (Bld) [#/Vol] 4.03 10*3/uL 3.70 - 11.00 k/u L [facility] Basophils (Bld) [#/Vol] 0.03 10*3/uL Normal <0.[address] [facility] Comment on above: Order Comment: Speci men Type: BLOOD SPECIMENOrdering Facility: [facility] Address: [address] [place] [address] Performed By: #### 5 7021-8 ####[facility] LABCLIA [id number] [place] [address] Basophils/100 WBC (Bld) 0.7 % Normal [facility] Comment on above: Order Comment: Speci men Type: BLOOD SPECIMENOrdering Facility: [facility] Address: [address] [place] [address] Performed By: #### 5 7021-8 ####[facility] LABCLIA [id number] [place] [address] Differential cell count method Nom (Bld) Auto Normal [facility] Comment on above: Order Comment: Speci men Type: BLOOD SPECIMENOrdering Facility: [facility] Address: [address] [place] [address] Performed By: #### 5 7021-8 ####[facility] LABCLIA [id number] [place] [address] Eosinophils (Bld) [#/Vol] 0.05 10*3/uL Normal <0.[address] [facility] Comment on above: Order Comment: Speci men Type: BLOOD SPECIMENOrdering Facility: [facility] Address: [address] [place] [address] Performed By: #### 5 7021-8 ####[facility] LABCLIA [id number] [place] [address] Eosinophils/100 WBC (Bld) 1.2 % Normal [facility] Comment on above: Order Comment: Speci men Type: BLOOD SPECIMENOrdering Facility: [facility] Address: [address] [place] [address] Performed By: #### 5 7021-8 ####[facility] LABCLIA [id number] [place] [address] Erythrocyte distribution width (RBC) [Ratio] 17.0 % High 11.5-15.[address] [facility] Comment on above: Order Comment: Speci men Type: BLOOD SPECIMENOrdering Facility: [facility] Address: [address] [place] [address] Performed By: #### 5 7021-8 ####[facility] LABCLIA [id number] [place] [address] Hematocrit (Bld) [Volume fraction] 40.7 % Normal 39.0-51.[address] [facility] Comment on above: Order Comment: Speci men Type: BLOOD SPECIMENOrdering Facility: [facility] Address: [address] [place] [address] Performed By: #### 5 7021-8 ####[facility] LABCLIA [id number] [place] [address] Hemoglobin (Bld) [Mass/Vol] 13.5 g/dL Normal 13.0-17.[address] [facility] Comment on above: Order Comment: Speci men Type: BLOOD SPECIMENOrdering Facility: [facility] Address: [address] [place] [address] Performed By: #### 5 7021-8 ####[facility] LABCLIA [id number] [place] [address] Immature granulocytes (Bld) [#/Vol] 0.03 10*3/uL Normal <0.[address] [facility] Comment on above: Order Comment: Speci men Type: BLOOD SPECIMENOrdering Facility: [facility] Address: [address] [place] [address] Performed By: #### 5 7021-8 ####[facility] LABCLIA [id number] [place] [address] Immature granulocytes/100 WBC (Bld) 0.7 % Normal [facility] Comment on above: Order Comment: Speci men Type: BLOOD SPECIMENOrdering Facility: [facility] Address: [address] [place] [address] Performed By: #### 5 7021-8 ####[facility] LABCLIA [id number] [place] [address] Lymphocytes (Bld) [#/Vol] 0.87 10*3/uL Low 1.00-4.[address] [facility] Comment on above: Order Comment: Speci men Type: BLOOD SPECIMENOrdering Facility: [facility] Address: [address] [place] [address] Performed By: #### 5 7021-8 ####[facility] LABCLIA [id number] [place] [address] Lymphocytes/100 WBC (Bld) 21.6 % Normal [facility] Comment on above: Order Comment: Speci men Type: BLOOD SPECIMENOrdering Facility: [facility] Address: [address] [place] [address] Performed By: #### 5 7021-8 ####[facility] LABCLIA [id number] [place] [address] MCH (RBC) [Entitic mass] 30.2 pg Normal 26.0-34.[address] [facility] Comment on above: Order Comment: Speci men Type: BLOOD SPECIMENOrdering Facility: [facility] Address: [address] [place] [address] Performed By: #### 5 7021-8 ####[facility] LABCLIA [id number] [place] [address] MCHC (RBC) [Mass/Vol] 33.2 g/dL Normal 30.5-36.[address] [facility] Comment on above: Order Comment: Speci men Type: BLOOD SPECIMENOrdering Facility: [facility] Address: [address] [place] [address] Performed By: #### 5 7021-8 ####[facility] LABCLIA [id number] [place] [address] MCV (RBC) [Entitic vol] 91.1 fL Normal 80.0-100.[address] [facility] Comment on above: Order Comment: Speci men Type: BLOOD SPECIMENOrdering Facility: [facility] Address: [address] [place] [address] Performed By: #### 5 7021-8 ####[facility] LABCLIA [id number] [place] [address] Monocytes (Bld) [#/Vol] 0.73 10*3/uL Normal <0.[address] [facility] Comment on above: Order Comment: Speci men Type: BLOOD SPECIMENOrdering Facility: [facility] Address: [address] [place] [address] Performed By: #### 5 7021-8 ####[facility] LABCLIA [id number] [place] [address] Monocytes/100 WBC (Bld) 18.1 % Normal [facility] Comment on above: Order Comment: Speci men Type: BLOOD SPECIMENOrdering Facility: [facility] Address: [address] [place] [address] Performed By: #### 5 7021-8 ####[facility] LABCLIA [id number] [place] [address] Neutrophils (Bld) [#/Vol] 2.32 10*3/uL Normal 1.45-7.[address] [facility] Comment on above: Order Comment: Speci men Type: BLOOD SPECIMENOrdering Facility: [facility] Address: [address] [place] [address] Performed By: #### 5 7021-8 ####[facility] LABCLIA [id number] [place] [address] Neutrophils/100 WBC (Bld) 57.7 % Normal [facility] Comment on above: Order Comment: Speci men Type: BLOOD SPECIMENOrdering Facility: [facility] Address: [address] [place] [address] Performed By: #### 5 7021-8 ####[facility] LABCLIA [id number] [place] [address] Nucleated RBC (Bld) [#/Vol] 10*3/uL Normal <0.[address] [facility] Comment on above: Order Comment: Speci men Type: BLOOD SPECIMENOrdering Facility: [facility] Address: [address] [place] [address] Performed By: #### 5 7021-8 ####[facility] LABCLIA [id number] [place] [address] Nucleated RBC/100 WBC (Bld) [Ratio] 0.0 /100 WBC Normal [facility] Comment on above: Order Comment: Speci men Type: BLOOD SPECIMENOrdering Facility: [facility] Address: [address] [place] [address] Performed By: #### 5 7021-8 ####[facility] LABCLIA [id number] [place] [address] Platelet mean volume (Bld) [Entitic vol] 11.0 fL Normal 9.0-12.[address] [facility] Comment on above: Order Comment: Speci men Type: BLOOD SPECIMENOrdering Facility: [facility] Address: [address] [place] [address] Performed By: #### 5 7021-8 ####[facility] LABCLIA [id number] [place] [address] Platelets (Bld) [#/Vol] 180 10*3/uL Normal 150-[address] [facility] Comment on above: Order Comment: Speci men Type: BLOOD SPECIMENOrdering Facility: [facility] Address: [address] [place] [address] Performed By: #### 5 7021-8 ####[facility] LABCLIA [id number] [place] [address] RBC (Bld) [#/Vol] 4.47 10*6/uL Normal 4.20-6.00 [facility] Comment on above: Order Comment: Speci men Type: BLOOD SPECIMENOrdering Facility: [facility] Address: [address] [place] [address] Performed By: #### 5 7021-8 ####[facility] LABCLIA [id number] [place] [address] WBC (Bld) [#/Vol] 4.03 10*3/uL Normal 3.70-11.00 [facility] Comment on above: Order Comment: Speci men Type: BLOOD SPECIMENOrdering Facility: [facility] Address: [address] [place] [address] Performed By: #### 5 7021-8 ####[facility] LABIA [id number] [place] [address] CNCNPATEDon 09-22-2023 CNCNPATED Normal [facility] CNOVSPon 09-22-2023 CNOVSP Normal [facility] Comprehensive metabolic 2000 panelon 09-22-2023 Albumin [Mass/Vol] 4.4 g/dL 3.9 - 4.9 g/dL [facility] ALP [Catalytic activity/Vol] 47 U/L 38 - 113 U/L [facility] ALT [Catalytic activity/Vol] 19 U/L 10 - 54 U/L [facility] Anion gap [Moles/Vol] 15 mmol/L 9 - 18 mmol/L [facility] AST [Catalytic activity/Vol] 24 U/L 14 - 40 U/L [facility] Bilirubin [Mass/Vol] 0.4 mg/dL 0.2 - 1.3 mg/dL [facility] Calcium [Mass/Vol] 10.1 mg/dL 8.5 - 10.2 mg/dL [facility] Chloride [Moles/Vol] 100 mmol/L 97 - 105 mmol/L [facility] CO2 [Moles/Vol] 25 mmol/L 22 - 30 mmol/L [facility] Creatinine [Mass/Vol] 1.38 mg/dL High 0.73 - 1.22 mg/dL [facility] Estimated Glomerular Filtration Rate 56 mL/min/1.73m Low >=60 mL/min/1.73m [facility] Glucose [Mass/Vol] 107 mg/dL High 74 - 99 mg/dL [facility] Potassium [Moles/Vol] 4.3 mmol/L 3.7 - 5.1 mmol/L [facility] Protein [Mass/Vol] 7.6 g/dL 6.3 - 8.0 g/dL [facility] Sodium [Moles/Vol] 140 mmol/L 136 - 144 mmol/L [facility] Urea nitrogen [Mass/Vol] 30 mg/dL High 9 - 24 mg/dL [facility] Albumin [Mass/Vol] 4.4 g/dL Normal 3.9-4.9 [facility] Comment on above: Order Comment: Speci men Type: BLOOD SPECIMENOrdering Facility: [facility] Address: [address] [place] [address] Performed By: #### 2 4323-8 ####[facility] LABCLIA [id number] [place] [address] ALP [Catalytic activity/Vol] 47 U/L Normal 38-[address] [facility] Comment on above: Order Comment: Speci men Type: BLOOD SPECIMENOrdering Facility: [facility] Address: [address] [place] [address] Performed By: #### 2 4323-8 ####[facility] LABCLIA [id number] [place] [address] ALT [Catalytic activity/Vol] 19 U/L Normal 10-[address] [facility] Comment on above: Order Comment: Speci men Type: BLOOD SPECIMENOrdering Facility: [facility] Address: [address] [place] [address] Performed By: #### 2 4323-8 ####[facility] LABCLIA [id number] [place] [address] Anion gap [Moles/Vol] 15 mmol/L Normal 9-[address] [facility] Comment on above: Order Comment: Speci men Type: BLOOD SPECIMENOrdering Facility: [facility] Address: [address] [place] [address] Performed By: #### 2 4323-8 ####[facility] LABCLIA [id number] [place] [address] AST [Catalytic activity/Vol] 24 U/L Normal 14-[address] [facility] Comment on above: Order Comment: Speci men Type: BLOOD SPECIMENOrdering Facility: [facility] Address: [address] [place] [address] Performed By: #### 2 4323-8 ####[facility] LABCLIA [id number] [place] [address] Bilirubin [Mass/Vol] 0.4 mg/dL Normal 0.2-1.3 [facility] Comment on above: Order Comment: Speci men Type: BLOOD SPECIMENOrdering Facility: [facility] Address: [address] [place] [address] Performed By: #### 2 4323-8 ####[facility] LABCLIA [id number] [place] [address] Calcium [Mass/Vol] 10.1 mg/dL Normal 8.5-10.2 [facility] Comment on above: Order Comment: Speci men Type: BLOOD SPECIMENOrdering Facility: [facility] Address: [address] [place] [address] Performed By: #### 2 4323-8 ####[facility] LABCLIA [id number] [place] [address] Chloride [Moles/Vol] 100 mmol/L Normal 97-105 [facility] Comment on above: Order Comment: Speci men Type: BLOOD SPECIMENOrdering Facility: [facility] Address: [address] [place] [address] Performed By: #### 2 4323-8 ####[facility] LABCLIA [id number] [place] [address] CO2 [Moles/Vol] 25 mmol/L Normal 22-[address] [facility] Comment on above: Order Comment: Speci men Type: BLOOD SPECIMENOrdering Facility: [facility] Address: [address] [place] [address] Performed By: #### 2 4323-8 ####[facility] LABCLIA [id number] [place] [address] Creatinine [Mass/Vol] 1.38 mg/dL High 0.73-1.[address] [facility] Comment on above: Order Comment: Speci men Type: BLOOD SPECIMENOrdering Facility: [facility] Address: [address] [place] [address] Performed By: #### 2 4323-8 ####[facility] LABCLIA [id number] [place] [address] Creatinine and Glomerular filtration rate.predicted panel (S/P/Bld) 56 mL/min/1.73m??? Low >=[address] [facility] Comment on above: Order Comment: Speci men Type: BLOOD SPECIMENOrdering Facility: [facility] Address: [address] [place] [address] Result Comment: Landy mated Glomerular Filtration Rate [...] actual GFR. Performed By: #### 2 4323-8 ####[facility] LABCLIA [id number] [place] [address] Glucose [Mass/Vol] 107 mg/dL High 74-99 [facility] Comment on above: Order Comment: Speci men Type: BLOOD SPECIMENOrdering Facility: [facility] Address: [address] [place] [address] Result Comment: The [employer] [employer] (ADA) provides guidance for cutoff [...] Standards of Medical Care in Diabetes 2016, [employer] Association. Diabetes Care. 2016.39(Suppl 1). Performed By: #### 2 4323-8 ####[facility] LABCLIA [id number] [place] [address] Potassium [Moles/Vol] 4.3 mmol/L Normal 3.7-5.[address] [facility] Comment on above: Order Comment: Speci men Type: BLOOD SPECIMENOrdering Facility: [facility] Address: [address] [place] [address] Performed By: #### 2 4323-8 ####[facility] LABCLIA [id number] [place] [address] Protein [Mass/Vol] 7.6 g/dL Normal 6.3-8.0 [facility] Comment on above: Order Comment: Speci men Type: BLOOD SPECIMENOrdering Facility: [facility] Address: [address] [place] [address] Performed By: #### 2 4323-8 ####[facility] LABCLIA [id number] [place] [address] Sodium [Moles/Vol] 140 mmol/L Normal 136-144 [facility] Comment on above: Order Comment: Speci men Type: BLOOD SPECIMENOrdering Facility: [facility] Address: [address] [place] [address] Performed By: #### 2 4323-8 ####[facility] LABCLIA [id number] [place] [address] Urea nitrogen [Mass/Vol] 30 mg/dL High 9-[address] [facility] Comment on above: Order Comment: Speci men Type: BLOOD SPECIMENOrdering Facility: [facility] Address: [address] [place] [address] Performed By: #### 2 4323-8 ####[facility] LABCLIA [id number] [place] [address] T4/FTI/T4Uon 09-22-2023 FTI 7.1 ug/dL 5.3 - 10.8 ug/dL [facility] T4 [Mass/Vol] 6.1 ug/dL 5.5 - 10.2 ug/dL [facility] T4 uptake [Mass/Vol] 0.86 Low 0.91 - 1.19 [facility] FTI 7.1 ug/dL Normal 5.3-10.[address] [facility] Comment on above: Order Comment: Speci men Type: BLOOD SPECIMENOrdering Facility: [facility] Address: [address] [place] [address] Performed By: #### Lexi CHAN, 3015-3 ####[facility] LABCLIA [id number] [place] [address] [place] T4 [Mass/Vol] 6.1 ug/dL Normal 5.5-10.[address] [facility] Comment on above: Order Comment: Speci men Type: BLOOD SPECIMENOrdering Facility: [facility] Address: [address] [place] [address] Performed By: #### Lexi CHAN, 3015-09 ####[facility] LABCLIA [id number] [place] [address] [place] T4 uptake [Mass/Vol] 0.86 Low 0.91-1.19 [facility] Comment on above: Order Comment: Speci men Type: BLOOD SPECIMENOrdering Facility: [facility] Address: [address] [place] [address] Performed By: #### Lexi CHAN, 3015-09 ####[facility] LABCLIA [id number] [place] [address] [place] TSH BLDon 09-22-2023 TSH Qn 14.500 m[IU]/L High 0.270 - 4.200 mIU/L [facility] TSH SerPl-aCncon 09-22-2023 TSH Qn 14.500 m[IU]/L High 0.270-4.[address] [facility] Comment on above: Order Comment: Speci men Type: BLOOD SPECIMENOrdering Facility: [facility] Address: [address] [place] [address] Performed By: #### Lexi CHAN, 3015-3 ####[facility] LABCLIA [id number] [place] [address] [place] NM PET/CT SKULL-THIGH SUBQon 09-15-2023 NM PET/CT SKULL-THIGH SUBQ Normal [facility] Physician Referralon 024 Physician Referral [id number] #1.00TIFF Normal [facility] Ambulatory Visit Summaryon 0 09-02-2023 Ambulatory Visit [...] 8:40 AM EDT With: Enrique Austin Where: [facility] Normal [address] [place] [phone] \.br\ Medications\.br\ What How Much When Why Instructions\.br\ New predniSONE (predniSONE 10 mg Tab) 1 Dose Separtor By Mouth As Directed Rash BMI 21.0-21.9, adult Former smoker Take 5 tabs by mouth daily x3 days, 4 daily x3 days, 3 daily x3 days, 2 daily x3 days, then 1 tab daily x3 days. Pickup at [facility]\.br\ Unchanged alprazolam (alprazolam 0.25 mg Tab) [...] 90 tab(s), 0 Refill(s) \.br\ Pharmacy Information\.br\ [facility]: [address] [place], [place] [id number] [phone]\.br\ Allergies\.br\ No Known Allergies\.br\ Problems\.br\ Ongoing - [...] choosing us for your care.\.br\ \.br\ [facility] Family Medicine Office/Clini c Noteon 09-02-2023 Family [...] spread this week. 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 triamcinolone topical, 1 duong, Topical, BID, 20 gram, Refill(s) 0, [facility], 169.5, cm, 08/20/23 11:52:00 EST, Height/Length Dosing, 63.1, kg, 08/20/23 11:52:00 EST, Weight Dosing [facility] External Ambulatory Referral 2. BMI 21.0-21.9, adult (Z68.21: Body mass index [BMI] 21.0-21.9, adult) BMI education complete Ordered: cephalexin, 500 mg = 1 cap(s), Oral, q12hr, # 20 cap(s), Refills(s) 0, Pharmacy: [facility], 169.5, cm, 08/20/23 11:52:00 EST, Height/Length Dosing, 63.1, kg, 08/20/23 11:52:00 EST, Weight Dosing predniSONE, 0 = 1 -, Oral, As Directed, Take 5 tabs by mouth daily x3 days, 4 daily x3 days, 3 daily x3 days, 2 daily x3 days, then 1 tab daily x3 days., # 45 tab(s), Refills(s) 0, Pharmacy: [facility], 169.5, cm, 09/02/23 11:42:00 EST, Height/Anuj... triamcinolone topical, 1 duong, Topical, BID, 20 gram, Refill(s) 0, [facility], 169.5, cm, 08/20/23 11:52:00 EST, Height/Length Dosing, 63.1, kg, 08/20/23 11:52:00 EST, Weight Dosing [facility] External Ambulatory Referral 3. Former smoker (Z87.891: Personal history of nicotine dependence) continue not smoking Ordered: predniSONE, 0 = 1 -, Oral, As Directed, Take 5 tabs by mouth daily x3 days, 4 daily x3 days, 3 daily x3 days, 2 daily x3 days, then 1 tab daily x3 days., # 45 tab(s), Refills(s) 0, Pharmacy: [facility], 169.5, cm, 09/02/23 11:42:00 EST, Height/Anuj... [facility] External Ambulatory Referral Orders: alprazolam, 0.25 mg = 1 tab(s), Oral, TID, PRN for anxiety, # 60 tab(s), Refills(s) 0, Pharmacy: [facility], 169.6, cm, 07/23/23 10:23:00 EST, Height/Length Dosing, 63, kg, 07/23/23 10:23:00 EST, Weight Dosing methylPREDNISolone, = 1 packet(s), Oral, Once, as directed on package labeling, # 21 tab(s), Refills(s) 0, Pharmacy: [facility], 169.6, cm, 07/23/23 10:23:00 EST, Height/Length Dosing, 63, kg, 07/23/23 10:23:00 EST, Weight Dosing Follow-up No qualifying data available Problem List/Past Medical History Ongoing Anxiety CAD (coronary artery disease) Chest congestion Emphysema lung Fluid level behind tympanic membrane of both ears Insomnia Lung cancer Rash Historical No qualifying data Procedure/Surgical History CABG (Coronary artery bypass grafting) planned (more content not included)... Normal [facility] Comment on above: Result Comment: Elec tronically Signed By: Enrique [place]\.br\Date and Time Signed: 09/02/23 13:02 EST CNPNon 08-26-2023 CNPN Normal [facility] CBC W Auto Differential pane l (Bld)on 08-25-2023 Basophils (Bld) [#/Vol] 0.03 10*3/uL Normal <0.[address] [facility] Comment on above: Order Comment: Speci men Type: BLOOD SPECIMENOrdering Facility: [facility] Address: [address] [place] [address] Performed By: #### 5 7021-8 ####[facility] LABCLIA [id number] [place] [address] Basophils/100 WBC (Bld) 0.6 % Normal [facility] Comment on above: Order Comment: Speci men Type: BLOOD SPECIMENOrdering Facility: [facility] Address: [address] [place] [address] Performed By: #### 5 7021-8 ####[facility] LABCLIA [id number] [place] [address] Differential cell count method Nom (Bld) Auto Normal [facility] Comment on above: Order Comment: Speci men Type: BLOOD SPECIMENOrdering Facility: [facility] Address: [address] [place] [address] Performed By: #### 5 7021-8 ####[facility] LABCLIA [id number] [place] [address] Eosinophils (Bld) [#/Vol] 0.16 10*3/uL Normal <0.[address] [facility] Comment on above: Order Comment: Speci men Type: BLOOD SPECIMENOrdering Facility: [facility] Address: [address] [place] [address] Performed By: #### 5 7021-8 ####[facility] LABCLIA [id number] [place] [address] Eosinophils/100 WBC (Bld) 3.1 % Normal [facility] Comment on above: Order Comment: Speci men Type: BLOOD SPECIMENOrdering Facility: [facility] Address: [address] [place] [address] Performed By: #### 5 7021-8 ####[facility] LABCLIA [id number] [place] [address] Erythrocyte distribution width (RBC) [Ratio] 14.5 % Normal 11.5-15.[address] [facility] Comment on above: Order Comment: Speci men Type: BLOOD SPECIMENOrdering Facility: [facility] Address: [address] [place] [address] Performed By: #### 5 7021-8 ####[facility] LABCLIA [id number] [place] [address] Hematocrit (Bld) [Volume fraction] 39.4 % Normal 39.0-51.[address] [facility] Comment on above: Order Comment: Speci men Type: BLOOD SPECIMENOrdering Facility: [facility] Address: [address] [place] [address] Performed By: #### 5 7021-8 ####[facility] LABCLIA [id number] [place] [address] Hemoglobin (Bld) [Mass/Vol] 13.2 g/dL Normal 13.0-17.[address] [facility] Comment on above: Order Comment: Speci men Type: BLOOD SPECIMENOrdering Facility: [facility] Address: [address] [place] [address] Performed By: #### 5 7021-8 ####[facility] LABCLIA [id number] [place] [address] Immature granulocytes (Bld) [#/Vol] 0.03 10*3/uL Normal <0.[address] [facility] Comment on above: Order Comment: Speci men Type: BLOOD SPECIMENOrdering Facility: [facility] Address: [address] [place] [address] Performed By: #### 5 7021-8 ####[facility] LABCLIA [id number] [place] [address] Immature granulocytes/100 WBC (Bld) 0.6 % Normal [facility] Comment on above: Order Comment: Speci men Type: BLOOD SPECIMENOrdering Facility: [facility] Address: [address] [place] [address] Performed By: #### 5 7021-8 ####[facility] LABCLIA [id number] [place] [address] Lymphocytes (Bld) [#/Vol] 1.08 10*3/uL Normal 1.00-4.[address] [facility] Comment on above: Order Comment: Speci men Type: BLOOD SPECIMENOrdering Facility: [facility] Address: [address] [place] [address] Performed By: #### 5 7021-8 ####[facility] LABCLIA [id number] [place] [address] Lymphocytes/100 WBC (Bld) 20.8 % Normal [facility] Comment on above: Order Comment: Speci men Type: BLOOD SPECIMENOrdering Facility: [facility] Address: [address] [place] [address] Performed By: #### 5 7021-8 ####[facility] LABCLIA [id number] [place] [address] MCH (RBC) [Entitic mass] 30.1 pg Normal 26.0-34.[address] [facility] Comment on above: Order Comment: Speci men Type: BLOOD SPECIMENOrdering Facility: [facility] Address: [address] [place] [address] Performed By: #### 5 7021-8 ####[facility] LABCLIA [id number] [place] [address] MCHC (RBC) [Mass/Vol] 33.5 g/dL Normal 30.5-36.[address] [facility] Comment on above: Order Comment: Speci men Type: BLOOD SPECIMENOrdering Facility: [facility] Address: [address] [place] [address] Performed By: #### 5 7021-8 ####[facility] LABCLIA [id number] [place] [address] MCV (RBC) [Entitic vol] 90.0 fL Normal 80.0-100.[address] [facility] Comment on above: Order Comment: Speci men Type: BLOOD SPECIMENOrdering Facility: [facility] Address: [address] [place] [address] Performed By: #### 5 7021-8 ####[facility] LABCLIA [id number] [place] [address] Monocytes (Bld) [#/Vol] 0.58 10*3/uL Normal <0.[address] [facility] Comment on above: Order Comment: Speci men Type: BLOOD SPECIMENOrdering Facility: [facility] Address: [address] [place] [address] Performed By: #### 5 7021-8 ####[facility] LABCLIA [id number] [place] [address] Monocytes/100 WBC (Bld) 11.2 % Normal [facility] Comment on above: Order Comment: Speci men Type: BLOOD SPECIMENOrdering Facility: [facility] Address: [address] [place] [address] Performed By: #### 5 7021-8 ####[facility] LABCLIA [id number] [place] [address] Neutrophils (Bld) [#/Vol] 3.31 10*3/uL Normal 1.45-7.[address] [facility] Comment on above: Order Comment: Speci men Type: BLOOD SPECIMENOrdering Facility: [facility] Address: [address] [place] [address] Performed By: #### 5 7021-8 ####[facility] LABCLIA [id number] [place] [address] Neutrophils/100 WBC (Bld) 63.7 % Normal [facility] Comment on above: Order Comment: Speci men Type: BLOOD SPECIMENOrdering Facility: [facility] Address: [address] [place] [address] Performed By: #### 5 7021-8 ####[facility] LABCLIA [id number] [place] [address] Nucleated RBC (Bld) [#/Vol] 10*3/uL Normal <0.[address] [facility] Comment on above: Order Comment: Speci men Type: BLOOD SPECIMENOrdering Facility: [facility] Address: [address] [place] [address] Performed By: #### 5 7021-8 ####[facility] LABCLIA [id number] [place] [address] Nucleated RBC/100 WBC (Bld) [Ratio] 0.0 /100 WBC Normal [facility] Comment on above: Order Comment: Speci men Type: BLOOD SPECIMENOrdering Facility: [facility] Address: [address] [place] [address] Performed By: #### 5 7021-8 ####[facility] LABIA [id number] [place] [address] Platelet mean volume (Bld) [Entitic vol] 11.2 fL Normal 9.0-12.[address] [facility] Comment on above: Order Comment: Speci men Type: BLOOD SPECIMENOrdering Facility: [facility] Address: [address] [place] [address] Performed By: #### 5 7021-8 ####[facility] LABCLIA [id number] [place] [address] Platelets (Bld) [#/Vol] 206 10*3/uL Normal 150-[address] [facility] Comment on above: Order Comment: Speci men Type: BLOOD SPECIMENOrdering Facility: [facility] Address: [address] [place] [address] Performed By: #### 5 7021-8 ####[facility] LABIA [id number] [place] [address] RBC (Bld) [#/Vol] 4.38 10*6/uL Normal 4.20-6.00 [facility] Comment on above: Order Comment: Speci men Type: BLOOD SPECIMENOrdering Facility: [facility] Address: [address] [place] [address] Performed By: #### 5 7021-8 ####[facility] LABCLIA [id number] [place] [address] WBC (Bld) [#/Vol] 5.19 10*3/uL Normal 3.70-11.00 [facility] Comment on above: Order Comment: Speci men Type: BLOOD SPECIMENOrdering Facility: [facility] Address: [address] [place] [address] Performed By: #### 5 7021-8 ####[facility] LABCLIA [id number] [place] [address] CNOVSPon 08-25-2023 CNOVSP Normal [facility] metabolic 2000 panelon 08-25-2023 Albumin [Mass/Vol] 4.4 g/dL Normal 3.9-4.9 [facility] Comment on above: Order Comment: Speci men Type: BLOOD SPECIMENOrdering Facility: [facility] Address: [address] [place] [address] Performed By: #### 2 4323-8 ####[facility] LABCLIA [id number] [place] [address] ALP [Catalytic activity/Vol] 70 U/L Normal 38-[address] [facility] Comment on above: Order Comment: Speci men Type: BLOOD SPECIMENOrdering Facility: [facility] Address: [address] [place] [address] Performed By: #### 2 4323-8 ####[facility] LABCLIA [id number] [place] [address] ALT [Catalytic activity/Vol] 25 U/L Normal 10-[address] [facility] Comment on above: Order Comment: Speci men Type: BLOOD SPECIMENOrdering Facility: [facility] Address: [address] [place] [address] Performed By: #### 2 4323-8 ####[facility] LABCLIA [id number] [place] [address] Anion gap [Moles/Vol] 13 mmol/L Normal 9-[address] [facility] Comment on above: Order Comment: Speci men Type: BLOOD SPECIMENOrdering Facility: [facility] Address: [address] [place] [address] Performed By: #### 2 4323-8 ####[facility] LABCLIA [id number] [place] [address] AST [Catalytic activity/Vol] 33 U/L Normal 14-[address] [facility] Comment on above: Order Comment: Speci men Type: BLOOD SPECIMENOrdering Facility: [facility] Address: [address] [place] [address] Performed By: #### 2 4323-8 ####[facility] LABCLIA [id number] [place] [address] Bilirubin [Mass/Vol] 0.3 mg/dL Normal 0.2-1.3 [facility] Comment on above: Order Comment: Speci men Type: BLOOD SPECIMENOrdering Facility: [facility] Address: [address] [place] [address] Performed By: #### 2 4323-8 ####[facility] LABCLIA [id number] [place] [address] Calcium [Mass/Vol] 10.2 mg/dL Normal 8.5-10.2 [facility] Comment on above: Order Comment: Speci men Type: BLOOD SPECIMENOrdering Facility: [facility] Address: [address] [place] [address] Performed By: #### 2 4323-8 ####[facility] LABCLIA [id number] [place] [address] Chloride [Moles/Vol] 102 mmol/L Normal 97-105 [facility] Comment on above: Order Comment: Speci men Type: BLOOD SPECIMENOrdering Facility: [facility] Address: [address] [id number] Performed By: #### 2 4323-8 ####[facility] LABCLIA [id number] [place] [address] CO2 [Moles/Vol] 25 mmol/L Normal 22-[address] [facility] Comment on above: Order Comment: Speci men Type: BLOOD SPECIMENOrdering Facility: [facility] Address: [address] [place] [address] Performed By: #### 2 4323-8 ####[facility] LABCLIA [id number] [place] [address] Creatinine [Mass/Vol] 1.19 mg/dL Normal 0.73-1.[address] [facility] Comment on above: Order Comment: Speci men Type: BLOOD SPECIMENOrdering Facility: [facility] Address: [address] [place] [address] Performed By: #### 2 4323-8 ####[facility] LABCLIA [id number] [place] [address] Creatinine and Glomerular filtration rate.predicted panel (S/P/Bld) 67 mL/min/1.73m??? Normal >=[address] [facility] Comment on above: Order Comment: Speci men Type: BLOOD SPECIMENOrdering Facility: [facility] Address: [address] [place] [address] Result Comment: Landy mated Glomerular Filtration Rate [...] actual GFR. Performed By: #### 2 4323-8 ####[facility] LABCLIA [id number] [place] [address] Glucose [Mass/Vol] 99 mg/dL Normal 74-99 [facility] Comment on above: Order Comment: Speci men Type: BLOOD SPECIMENOrdering Facility: [facility] Address: [address] [id number] Result Comment: The [place] [employer] (ADA) provides guidance for cutoff [...] Standards of Medical Care in Diabetes 2016, [place] [employer]. Diabetes Care. 2016.39(Suppl 1). Performed By: #### 2 4323-8 ####[facility] LABCLIA [id number] [place] [address] Potassium [Moles/Vol] 3.8 mmol/L Normal 3.7-5.[address] [facility] Comment on above: Order Comment: Speci [facility] Type: BLOOD SPECIMENOrdering Facility: [facility] Address: [address] [place] [address] Performed By: #### 2 4323-8 ####[facility] LABCLIA [id number] [place] [address] Protein [Mass/Vol] 7.9 g/dL Normal 6.3-8.0 [facility] Comment on above: Order Comment: Speci men Type: BLOOD SPECIMENOrdering Facility: [facility] Address: [address] [place] [address] Performed By: #### 2 4323-8 ####[facility] LABCLIA [id number] [place] [address] Sodium [Moles/Vol] 140 mmol/L Normal 136-144 [facility] Comment on above: Order Comment: Speci men Type: BLOOD SPECIMENOrdering Facility: [facility] Address: [address] [id number] Performed By: #### 2 4323-8 ####[facility] LABCLIA [id number] [place] [address] Urea nitrogen [Mass/Vol] 33 mg/dL High 9-[address] [facility] Comment on above: Order Comment: Speci men Type: BLOOD SPECIMENOrdering Facility: [facility] Address: [address] [place] [address] Performed By: #### 2 4323-8 ####[facility] LABCLIA [id number] [place] [address] T4/FTI/T4Uon 08-25-2023 FTI 2.0 ug/dL Low 5.3-10.[address] [facility] Comment on above: Order Comment: Speci men Type: BLOOD SPECIMENOrdering Facility: [facility] Address: [address] [place] [address] Performed By: #### 3 016-3, T4FTI ####[facility] LABCLIA [id number] [place] [address] [place] T4 [Mass/Vol] 2.3 ug/dL Low 5.5-10.[address] [facility] Comment on above: Order Comment: Speci men Type: BLOOD SPECIMENOrdering Facility: [facility] Address: [address] [place] [address] Performed By: #### 3 016-3, T4FTI ####[facility] LABCLIA [id number] [place] [address] [place] T4 uptake [Mass/Vol] 1.14 Normal 0.91-1.19 [facility] Comment on above: Order Comment: Speci men Type: BLOOD SPECIMENOrdering Facility: [facility] Address: [address] [place] [address] Performed By: #### 3 016-3, T4FTI ####[facility] LABCLIA [id number] [place] [address] [place] TSH SerPl-aCncon 08-25-2023 TSH Qn 109.000 m[IU]/L High 0.270-4.200 Manuel stone [facility] Comment on above: Order Comment: Speci men Type: BLOOD SPECIMENOrdering Facility: [facility] Address: [address] [place] [address] Performed By: #### 3 016-3, T4FTI ####[facility] LABCLIA [id number] [facility]ICCh[facility] HOSPITALBrielle 23 [address] [place] Ambulatory Visit Summaryon [...] 8:40 AM EDT With: Enrique Austin Where: [facility] Normal [address] [place] [address]- \.br\ Medications\.br\ What How Much When Why Instructions\.br\ New cephalexin (cephalexin 500 mg Cap) 1 Capsules By Mouth Every 12 hours Rash Lung cancer BMI 21.0-21.9, adult Pickup at [facility]\.br\ New sotorasib (Lumakras 320 mg oral tablet) 90 tab(s), 0 Refill(s) \.br\ New triamcinolone topical (triamcinolone Top 0.5% Crm) 1 Application Topical 2 times a day Rash Lung cancer BMI 21.0-21.9, adult Pickup at [facility]\.br\ Unchanged alprazolam (alprazolam 0.25 mg [...] Tablets By Mouth Every day\.br\ Pharmacy Information\.br\ [facility]: [address] [place], [place] [id number] [phone]\.br\ Allergies\.br\ No Known Allergies\.br\ Problems\.br\ Ongoing - [...] for choosing us for your care.\.br\ \.br\ [facility] Consenton 08-20-2023 Consent [phone] [id number] #1.00TIFF Normal [facility] Family Medicine Office/Clini c Noteon 08-20-2023 Family [...] q12hr, # 20 cap(s), Refills(s) 0, Pharmacy: [facility], 169.5, cm, 08/20/23 11:52:00 EST, Height/Length Dosing, 63.1, kg, 08/20/23 11:52:00 EST, Weight Dosing triamcinolone, 60 mg = 1.5 mL, Injection, IntraARTICULAR, Once, Stop date 08/20/23 12:17:00 EST, Routine, Start date 08/20/23 12:17:00 EST, 08/20/23 12:17:00 EST triamcinolone topical, 1 duong, Topical, BID, 20 gram, Refill(s) 0, [facility], 169.5, cm, 08/20/23 11:52:00 EST, Height/Length Dosing, 63.1, kg, 08/20/23 11:52:00 EST, Weight Dosing 2. Lung cancer (C34.90: Malignant neoplasm of unspecified part of unspecified bronchus or lung) pt still taking oral treatment Ordered: cephalexin, 500 mg = 1 cap(s), Oral, q12hr, # 20 cap(s), Refills(s) 0, Pharmacy: [facility], 169.5, cm, 08/20/23 11:52:00 EST, Height/Length Dosing, 63.1, kg, 08/20/23 11:52:00 EST, Weight Dosing triamcinolone topical, 1 duong, Topical, BID, 20 gram, Refill(s) 0, [facility], 169.5, cm, 08/20/23 11:52:00 EST, Height/Length Dosing, 63.1, kg, 08/20/23 11:52:00 EST, Weight Dosing 3. BMI 21.0-21.9, adult (Z68.21: Body mass index [BMI] 21.0-21.9, adult) BMI education complete Ordered: cephalexin, 500 mg = 1 cap(s), Oral, q12hr, # 20 cap(s), Refills(s) 0, Pharmacy: [facility], 169.5, cm, 08/20/23 11:52:00 EST, Height/Length Dosing, 63.1, kg, 08/20/23 11:52:00 EST, Weight Dosing triamcinolone topical, 1 duong, Topical, BID, 20 gram, Refill(s) 0, [facility], 169.5, cm, 08/20/23 11:52:00 EST, [...] malignant neoplas (more content not included)... Normal [facility] Comment on above: Result Comment: Elec tronically Signed By: Enrique Austin\chikis\Date and Time Signed: 08/20/23 12:47 EST CNOVon 08-15-2023 CNOV [address] [facility] CNPNon 08-11-2023 CNPN [address] [facility] CNOVon 08-08-2023 CNOV [address] [facility] CBC W Auto Differential pane l (Bld)on 07-28-2023 Basophils (Bld) [#/Vol] 0.03 10*3/uL Normal <0.[address] [facility] Comment on above: Order Comment: Speci men Type: BLOOD SPECIMENOrdering Facility: [facility] Address: [address] [place] [address] Performed By: #### 5 7021-8 ####[facility] LABCLIA [id number] [place] [address] Basophils/100 WBC (Bld) 0.4 % Normal [facility] Comment on above: Order Comment: Speci men Type: BLOOD SPECIMENOrdering Facility: [facility] Address: [address] [place] [address] Performed By: #### 5 7021-8 ####[facility] LABCLIA [id number] [place] [address] Differential cell count method Nom (Bld) Auto Normal [facility] Comment on above: Order Comment: Speci men Type: BLOOD SPECIMENOrdering Facility: [facility] Address: [address] [place] [address] Performed By: #### 5 7021-8 ####[facility] LABCLIA [id number] [place] [address] Eosinophils (Bld) [#/Vol] 0.18 10*3/uL Normal <0.[address] [facility] Comment on above: Order Comment: Speci men Type: BLOOD SPECIMENOrdering Facility: [facility] Address: [address] [place] [address] Performed By: #### 5 7021-8 ####[facility] LABCLIA [id number] [place] [address] Eosinophils/100 WBC (Bld) 2.6 % Normal [facility] Comment on above: Order Comment: Speci men Type: BLOOD SPECIMENOrdering Facility: [facility] Address: [address] [place] [address] Performed By: #### 5 7021-8 ####[facility] LABCLIA [id number] [place] [address] Erythrocyte distribution width (RBC) [Ratio] 13.2 % Normal 11.5-15.[address] [facility] Comment on above: Order Comment: Speci men Type: BLOOD SPECIMENOrdering Facility: [facility] Address: [address] [place] [address] Performed By: #### 5 7021-8 ####[facility] LABCLIA [id number] [place] [address] Hematocrit (Bld) [Volume fraction] 35.5 % Low 39.0-51.[address] [facility] Comment on above: Order Comment: Speci men Type: BLOOD SPECIMENOrdering Facility: [facility] Address: [address] [place] [address] Performed By: #### 5 7021-8 ####[facility] LABCLIA [id number] [place] [address] Hemoglobin (Bld) [Mass/Vol] 12.0 g/dL Low 13.0-17.[address] [facility] Comment on above: Order Comment: Speci men Type: BLOOD SPECIMENOrdering Facility: [facility] Address: [address] [place] [address] Performed By: #### 5 7021-8 ####[facility] LABCLIA [id number] [place] [address] Immature granulocytes (Bld) [#/Vol] 0.04 10*3/uL Normal <0.[address] [facility] Comment on above: Order Comment: Speci men Type: BLOOD SPECIMENOrdering Facility: [facility] Address: [address] [place] [address] Performed By: #### 5 7021-8 ####[facility] LABCLIA [id number] [place] [address] Immature granulocytes/100 WBC (Bld) 0.6 % Normal [facility] Comment on above: Order Comment: Speci men Type: BLOOD SPECIMENOrdering Facility: [facility] Address: [address] [place] [address] Performed By: #### 5 7021-8 ####[facility] LABCLIA [id number] [place] [address] Lymphocytes (Bld) [#/Vol] 1.31 10*3/uL Normal 1.00-4.[address] [facility] Comment on above: Order Comment: Speci men Type: BLOOD SPECIMENOrdering Facility: [facility] Address: [address] [place] [address] Performed By: #### 5 7021-8 ####[facility] LABCLIA [id number] [place] [address] Lymphocytes/100 WBC (Bld) 19.2 % Normal [facility] Comment on above: Order Comment: Speci men Type: BLOOD SPECIMENOrdering Facility: [facility] Address: [address] [place] [address] Performed By: #### 5 7021-8 ####[facility] LABCLIA [id number] [place] [address] MCH (RBC) [Entitic mass] 30.4 pg Normal 26.0-34.[address] [facility] Comment on above: Order Comment: Speci men Type: BLOOD SPECIMENOrdering Facility: [facility] Address: [address] [place] [address] Performed By: #### 5 7021-8 ####[facility] LABCLIA [id number] [place] [address] MCHC (RBC) [Mass/Vol] 33.8 g/dL Normal 30.5-36.[address] [facility] Comment on above: Order Comment: Speci men Type: BLOOD SPECIMENOrdering Facility: [facility] Address: [address] [place] [address] Performed By: #### 5 7021-8 ####[facility] LABCLIA [id number] [place] [address] MCV (RBC) [Entitic vol] 89.9 fL Normal 80.0-100.[address] [facility] Comment on above: Order Comment: Speci men Type: BLOOD SPECIMENOrdering Facility: [facility] Address: [address] [place] [address] Performed By: #### 5 7021-8 ####[facility] LABIA [id number] [place] [address] Monocytes (Bld) [#/Vol] 0.77 10*3/uL Normal <0.[address] [facility] Comment on above: Order Comment: Speci men Type: BLOOD SPECIMENOrdering Facility: [facility] Address: [address] [place] [address] Performed By: #### 5 7021-8 ####[facility] LABCLIA [id number] [place] [address] Monocytes/100 WBC (Bld) 11.3 % Normal [facility] Comment on above: Order Comment: Speci men Type: BLOOD SPECIMENOrdering Facility: [facility] Address: [address] [place] [address] Performed By: #### 5 7021-8 ####[facility] LABIA [id number] [place] [address] Neutrophils (Bld) [#/Vol] 4.49 10*3/uL Normal 1.45-7.[address] [facility] Comment on above: Order Comment: Speci men Type: BLOOD SPECIMENOrdering Facility: [facility] Address: [address] [place] [address] Performed By: #### 5 7021-8 ####[facility] LABCLIA [id number] [place] [address] Neutrophils/100 WBC (Bld) 65.9 % Normal [facility] Comment on above: Order Comment: Speci men Type: BLOOD SPECIMENOrdering Facility: [facility] Address: [address] [place] [address] Performed By: #### 5 7021-8 ####[facility] LABCLIA [id number] [place] [address] Nucleated RBC (Bld) [#/Vol] 10*3/uL Normal <0.[address] [facility] Comment on above: Order Comment: Speci men Type: BLOOD SPECIMENOrdering Facility: [facility] Address: [address] [place] [address] Performed By: #### 5 7021-8 ####[facility] LABCLIA [id number] [place] [address] Nucleated RBC/100 WBC (Bld) [Ratio] 0.0 /100 WBC Normal [facility] Comment on above: Order Comment: Speci men Type: BLOOD SPECIMENOrdering Facility: [facility] Address: [address] [place] [address] Performed By: #### 5 7021-8 ####[facility] LABCLIA [id number] [place] [address] Platelet mean volume (Bld) [Entitic vol] 10.5 fL Normal 9.0-12.[address] [facility] Comment on above: Order Comment: Speci men Type: BLOOD SPECIMENOrdering Facility: [facility] Address: [address] [place] [address] Performed By: #### 5 7021-8 ####[facility] LABCLIA [id number] [place] [address] Platelets (Bld) [#/Vol] 265 10*3/uL Normal 150-[address] [facility] Comment on above: Order Comment: Speci men Type: BLOOD SPECIMENOrdering Facility: [facility] Address: [address] [place] [address] Performed By: #### 5 7021-8 ####[facility] LABCLIA [id number] [place] [address] RBC (Bld) [#/Vol] 3.95 10*6/uL Low 4.20-6.00 [facility] Comment on above: Order Comment: Speci men Type: BLOOD SPECIMENOrdering Facility: [facility] Address: [address] [place] [address] Performed By: #### 5 7021-8 ####[facility] LABIA [id number] [place] [address] WBC (Bld) [#/Vol] 6.82 10*3/uL Normal 3.70-11.00 [facility] Comment on above: Order Comment: Speci men Type: BLOOD SPECIMENOrdering Facility: [facility] Address: [address] [place] [address] Performed By: #### 5 7021-8 ####[facility] LABIA [id number] [place] [address] CNOVSPon 07-28-2023 CNOVSP [address] [facility] Ambulatory Visit Summaryon 0 07-23-2023 Ambulatory [...] 9:00 AM EDT With: Enrique Austin Where: [facility] Medicine [place] Normal [address] [place] [address]- \.br\ Medications\.br\ What How Much When Instructions\.br\ [...] for choosing us for your care.\.br\ \.br\ [facility] Medicine Office/Clini c Noteon 07-23-2023 Family [...] Daily, 16 gram, Refill(s) 0, each nostril, [facility], 169.6, cm, 03/17/23 10:54:00 EDT, Height/Length Dosing, 62, kg, 03/17/23 10:54:00 EDT, Weight Dosing 2. Chest congestion (R09.89: Other specified symptoms and signs involving the circulatory and respiratory systems) pt having chest congestion body aches and coughing up yellow phlegm. 3. Anxiety (F41.9: Anxiety disorder, unspecified) meds refilled Ordered: fluticasone nasal, 2 spray(s), Nasal, Daily, 16 gram, Refill(s) 0, each nostril, [facility], 169.6, cm, 03/17/23 10:54:00 EDT, Height/Length Dosing, 62, kg, 03/17/23 10:54:00 EDT, Weight Dosing 4. BMI 21.0-21.9, adult (Z68.21: Body mass index [BMI] 21.0-21.9, adult) BMI education complete Ordered: fluticasone nasal, 2 spray(s), Nasal, Daily, 16 gram, Refill(s) 0, each nostril, [facility], 169.6, cm, 03/17/23 10:54:00 EDT, Height/Length Dosing, 62, kg, 03/17/23 10:54:00 EDT, Weight Dosing 5. Former smoker (Z87.891: Personal history of nicotine dependence) continue not smoking Ordered: fluticasone nasal, 2 spray(s), Nasal, Daily, 16 gram, Refill(s) 0, each nostril, [facility], 169.6, cm, 03/17/23 10:54:00 EDT, Height/Length Dosing, 62, kg, 03/17/23 10:54:00 EDT, Weight Dosing Orders: alprazolam, 0.25 mg = 1 tab(s), Oral, TID, PRN for anxiety, # 60 tab(s), Refills(s) 0, Pharmacy: [facility], 169.6, cm, 07/23/23 10:23:00 EST, Height/Length Dosing, 63, kg, 07/23/23 10:23:00 EST, Weight Dosing alprazolam, 0.25 mg = 1 tab(s), Oral, TID, PRN for anxiety, # 30 tab(s), Refills(s) 1, Pharmacy: [facility], 169.6, cm, 04/16/23 10:21:00 EDT, Height/Length Dosing, 63.8, kg, 04/16/23 10:30:00 EDT, Weight Dosing azithromycin, = 1 packet(s), Oral, As Directed, as directed on package labeling, X 5 day(s), # 6 tab(s), Refills(s) 0, Pharmacy: [facility], 169.6, cm, 07/23/23 10:23:00 EST, Height/Length Dosing, 63, kg, 07/23/23 10:23:00 EST, Weight Dosing methylPREDNISolone, = 1 packet(s), Oral, Once, as directed on package labeling, # 21 tab(s), Refills(s) 0, Pharmacy: [facility], 169.6, cm, 07/23/23 10:23:00 EST, Height/Length [...] 1 tab(s) (more content not included)... Normal [facility] Comment on above: Result Comment: Elec tronically Signed By: Enrique Austin\.br\Date and Time Signed: 07/23/23 10:41 EST Radha 07-18-[address] PATRICK [address] [facility] Medication Consenton 023 Medication Consent [id number] 8#1.00TIFF Normal [facility] Ambulatory Visit Summaryon 1 09-09-2022 Ambulatory Visit [...] mg Tab) fluticasone nasal (Flonase 0.05 mg/inh [place]) isosorbide mononitrate (isosorbide mononitrate 30 mg ER [...] 9:00 AM EDT With: Enrique Austin Where: [facility] Normal [address] [place] [address]- \.br\ Medications\.br\ What How Much When Why [...] Unchanged fluticasone nasal (Flonase 0.05 mg/ inh [place]) 2 Sprays Nasal Inhalation Every day Rash [...] choosing us for your care.\.br\ \.br\ [facility] Family Medicine Office/Clini c Noteon 07-09-2023 [...] did get something rxed for it at [facility] ( amoxicillin) History of Present Illness pt [...] 1 tab(s), Oral, Daily Flonase 0.05 mg/inh [place], 2 spray(s), Nasal, Daily, Not taking isosorbide [...] (COVID-19) mRNA-1273 vaccine 11/15/2020 Recorded Normal [facility] Comment on above: Result Comment: Elec tronically Signed By: Enrique Austin\.br\Date and Time Signed: 07/09/23 10:27 EST CBC W Auto Differential pane l (Bld)on 06-30-2023 Basophils (Bld) [#/Vol] 0.03 10*3/uL Normal <0.[address] [facility] Comment on above: Order Comment: Speci men Type: BLOOD SPECIMENOrdering Facility: [facility] Address: [address] [place] [address] Performed By: #### 5 7021-8 ####[facility] LABCLIA [id number] [place] [address] Basophils/100 WBC (Bld) 0.5 % Normal [facility] Comment on above: Order Comment: Speci men Type: BLOOD SPECIMENOrdering Facility: [facility] Address: [address] [place] [address] Performed By: #### 5 7021-8 ####[facility] LABCLIA [id number] [place] [address] Differential cell count method Nom (Bld) Auto Normal [facility] Comment on above: Order Comment: Speci men Type: BLOOD SPECIMENOrdering Facility: [facility] Address: [address] [place] [address] Performed By: #### 5 7021-8 ####[facility] LABCLIA [id number] [place] [address] Eosinophils (Bld) [#/Vol] 0.27 10*3/uL Normal <0.[address] [facility] Comment on above: Order Comment: Speci men Type: BLOOD SPECIMENOrdering Facility: [facility] Address: [address] [place] [address] Performed By: #### 5 7021-8 ####[facility] LABCLIA [id number] [place] [address] Eosinophils/100 WBC (Bld) 4.5 % Normal [facility] Comment on above: Order Comment: Speci men Type: BLOOD SPECIMENOrdering Facility: [facility] Address: [address] [place] [address] Performed By: #### 5 7021-8 ####[facility] LABCLIA [id number] [place] [address] Erythrocyte distribution width (RBC) [Ratio] 12.7 % Normal 11.5-15.[address] [facility] Comment on above: Order Comment: Speci men Type: BLOOD SPECIMENOrdering Facility: [facility] Address: [address] [place] [address] Performed By: #### 5 7021-8 ####[facility] LABCLIA [id number] [place] [address] Hematocrit (Bld) [Volume fraction] 34.6 % Low 39.0-51.[address] [facility] Comment on above: Order Comment: Speci men Type: BLOOD SPECIMENOrdering Facility: [facility] Address: [address] [place] [address] Performed By: #### 5 7021-8 ####[facility] LABIA [id number] [place] [address] Hemoglobin (Bld) [Mass/Vol] 11.7 g/dL Low 13.0-17.[address] [facility] Comment on above: Order Comment: Speci men Type: BLOOD SPECIMENOrdering Facility: [facility] Address: [address] [place] [address] Performed By: #### 5 7021-8 ####[facility] LABCLIA [id number] [place] [address] Immature granulocytes (Bld) [#/Vol] 0.03 10*3/uL Normal <0.[address] [facility] Comment on above: Order Comment: Speci men Type: BLOOD SPECIMENOrdering Facility: [facility] Address: [address] [place] [address] Performed By: #### 5 7021-8 ####[facility] LABIA [id number] [place] [address] Immature granulocytes/100 WBC (Bld) 0.5 % Normal [facility] Comment on above: Order Comment: Speci men Type: BLOOD SPECIMENOrdering Facility: [facility] Address: [address] [place] [address] Performed By: #### 5 7021-8 ####[facility] LABCLIA [id number] [place] [address] Lymphocytes (Bld) [#/Vol] 1.32 10*3/uL Normal 1.00-4.[address] [facility] Comment on above: Order Comment: Speci men Type: BLOOD SPECIMENOrdering Facility: [facility] Address: [address] [place] [address] Performed By: #### 5 7021-8 ####[facility] LABCLIA [id number] [place] [address] Lymphocytes/100 WBC (Bld) 22.0 % Normal [facility] Comment on above: Order Comment: Speci men Type: BLOOD SPECIMENOrdering Facility: [facility] Address: [address] [place] [address] Performed By: #### 5 7021-8 ####[facility] LABCLIA [id number] [place] [address] MCH (RBC) [Entitic mass] 31.0 pg Normal 26.0-34.[address] [facility] Comment on above: Order Comment: Speci men Type: BLOOD SPECIMENOrdering Facility: [facility] Address: [address] [place] [address] Performed By: #### 5 7021-8 ####[facility] LABCLIA [id number] [place] [address] MCHC (RBC) [Mass/Vol] 33.8 g/dL Normal 30.5-36.[address] [facility] Comment on above: Order Comment: Speci men Type: BLOOD SPECIMENOrdering Facility: [facility] Address: [address] [place] [address] Performed By: #### 5 7021-8 ####[facility] LABCLIA [id number] [place] [address] MCV (RBC) [Entitic vol] 91.5 fL Normal 80.0-100.[address] [facility] Comment on above: Order Comment: Speci men Type: BLOOD SPECIMENOrdering Facility: [facility] Address: [address] [place] [address] Performed By: #### 5 7021-8 ####[facility] LABCLIA [id number] [place] [address] Monocytes (Bld) [#/Vol] 1.12 10*3/uL High <0.[address] [facility] Comment on above: Order Comment: Speci men Type: BLOOD SPECIMENOrdering Facility: [facility] Address: [address] [place] [address] Performed By: #### 5 7021-8 ####[facility] LABCLIA [id number] [place] [address] Monocytes/100 WBC (Bld) 18.7 % Normal [facility] Comment on above: Order Comment: Speci men Type: BLOOD SPECIMENOrdering Facility: [facility] Address: [address] [place] [address] Performed By: #### 5 7021-8 ####[facility] LABCLIA [id number] [place] [address] Neutrophils (Bld) [#/Vol] 3.23 10*3/uL Normal 1.45-7.[address] [facility] Comment on above: Order Comment: Speci men Type: BLOOD SPECIMENOrdering Facility: [facility] Address: [address] [place] [address] Performed By: #### 5 7021-8 ####[facility] LABCLIA [id number] [place] [address] Neutrophils/100 WBC (Bld) 53.8 % Normal [facility] Comment on above: Order Comment: Speci men Type: BLOOD SPECIMENOrdering Facility: [facility] Address: [address] [place] [address] Performed By: #### 5 7021-8 ####[facility] LABCLIA [id number] [place] [address] Nucleated RBC (Bld) [#/Vol] 10*3/uL Normal <0.[address] [facility] Comment on above: Order Comment: Speci men Type: BLOOD SPECIMENOrdering Facility: [facility] Address: [address] [place] [address] Performed By: #### 5 7021-8 ####[facility] LABCLIA [id number] [place] [address] Nucleated RBC/100 WBC (Bld) [Ratio] 0.0 /100 WBC Normal [facility] Comment on above: Order Comment: Speci men Type: BLOOD SPECIMENOrdering Facility: [facility] Address: [address] [place] [address] Performed By: #### 5 7021-8 ####[facility] LABCLIA [id number] [place] [address] Platelet mean volume (Bld) [Entitic vol] 10.5 fL Normal 9.0-12.[address] [facility] Comment on above: Order Comment: Speci men Type: BLOOD SPECIMENOrdering Facility: [facility] Address: [address] [place] [address] Performed By: #### 5 7021-8 ####[facility] LABCLIA [id number] [place] [address] Platelets (Bld) [#/Vol] 223 10*3/uL Normal 150-[address] [facility] Comment on above: Order Comment: Speci men Type: BLOOD SPECIMENOrdering Facility: [facility] Address: [address] [place] [address] Performed By: #### 5 7021-8 ####[facility] [facility] [id number] [place] [address] RBC (Bld) [#/Vol] 3.78 10*6/uL Low 4.20-6.00 [facility] Comment on above: Order Comment: Speci men Type: BLOOD SPECIMENOrdering Facility: [facility] Address: [address] [place] [address], [place] [address] Performed By: #### 5 7021-8 ####[facility] LABCLIA [id number] [place] [address] WBC (Bld) [#/Vol] 6.00 10*3/uL Normal 3.70-11.00 [facility] Comment on above: Order Comment: Speci men Type: BLOOD SPECIMENOrdering Facility: [facility] Address: [address] [place] [address] Performed By: #### 5 7021-8 ####[facility] LABCLIA [id number] [place] [address] CNOVon 06-30-2023 CNOV [address] [facility] CNOVSPon 06-30-2023 CNOVSP Normal [facility] Comprehensive metabolic 2000 panelon 06-30-2023 Albumin [Mass/Vol] 4.0 g/dL Normal 3.9-4.9 [facility] Comment on above: Order Comment: Speci men Type: BLOOD SPECIMENOrdering Facility: [facility] Address: [address] [place] [address] Performed By: #### 2 4323-8 ####[facility] LABCLIA [id number] [place] [address] ALP [Catalytic activity/Vol] 79 U/L Normal 38-[address] [facility] Comment on above: Order Comment: Speci men Type: BLOOD SPECIMENOrdering Facility: [facility] Address: [address] [place] [address] Performed By: #### 2 4323-8 ####[facility] LABCLIA [id number] [place] [address] ALT [Catalytic activity/Vol] 30 U/L Normal 10-[address] [facility] Comment on above: Order Comment: Speci men Type: BLOOD SPECIMENOrdering Facility: [facility] Address: [address] [place] [address] Performed By: #### 2 4323-8 ####[facility] LABCLIA [id number] [place] [address] Anion gap [Moles/Vol] 12 mmol/L Normal 9-[address] [facility] Comment on above: Order Comment: Speci men Type: BLOOD SPECIMENOrdering Facility: [facility] Address: [address] [place] [address] Performed By: #### 2 4323-8 ####[facility] LABCLIA [id number] [place] [address] AST [Catalytic activity/Vol] 36 U/L Normal 14-[address] [facility] Comment on above: Order Comment: Speci men Type: BLOOD SPECIMENOrdering Facility: [facility] Address: [address] [place] [address] Performed By: #### 2 4323-8 ####[facility] LABCLIA [id number] [place] [address] Bilirubin [Mass/Vol] 0.5 mg/dL Normal 0.2-1.3 [facility] Comment on above: Order Comment: Speci men Type: BLOOD SPECIMENOrdering Facility: [facility] Address: [address] [place] [address] Performed By: #### 2 4323-8 ####[facility] LABCLIA [id number] [place] [address] Calcium [Mass/Vol] 9.6 mg/dL Normal 8.5-10.2 [facility] Comment on above: Order Comment: Speci men Type: BLOOD SPECIMENOrdering Facility: [facility] Address: [address] [place] [address] Performed By: #### 2 4323-8 ####[facility] LABCLIA [id number] [place] [address] Chloride [Moles/Vol] 101 mmol/L Normal 97-105 [facility] Comment on above: Order Comment: Speci men Type: BLOOD SPECIMENOrdering Facility: [facility] Address: [address] [place] [address] Performed By: #### 2 4323-8 ####[facility] LABCLIA [id number] [place] [address] CO2 [Moles/Vol] 26 mmol/L Normal 22-[address] [facility] Comment on above: Order Comment: Speci men Type: BLOOD SPECIMENOrdering Facility: [facility] Address: [address] [place] [address] Performed By: #### 2 4323-8 ####[facility] LABCLIA [id number] [place] [address] Creatinine [Mass/Vol] 1.34 mg/dL High 0.73-1.[address] [facility] Comment on above: Order Comment: Speci men Type: BLOOD SPECIMENOrdering Facility: [facility] Address: [address] [place] [address] Performed By: #### 2 4323-8 ####[facility] LABCLIA [id number] [place] [address] Creatinine and Glomerular filtration rate.predicted panel (S/P/Bld) 58 mL/min/1.73m??? Low >=[address] [facility] Comment on above: Order Comment: Speci men Type: BLOOD SPECIMENOrdering Facility: [facility] Address: [address] [place] [address] Result Comment: Landy mated Glomerular Filtration Rate [...] actual GFR. Performed By: #### 2 4323-8 ####[facility] LABCLIA [id number] [place] [address] Glucose [Mass/Vol] 100 mg/dL High 74-99 [facility] Comment on above: Order Comment: Speci men Type: BLOOD SPECIMENOrdering Facility: [facility] Address: [address] [place] [address] Result Comment: The [place] [employer] (ADA) provides guidance for cutoff [...] Standards of Medical Care in Diabetes 2016, [place] [employer]. Diabetes Care. 2016.39(Suppl 1). Performed By: #### 2 4323-8 ####[facility] LABCLIA [id number] [place] [address] Potassium [Moles/Vol] 4.0 mmol/L Normal 3.7-5.[address] [facility] Comment on above: Order Comment: Speci men Type: BLOOD SPECIMENOrdering Facility: [facility] Address: [address] [place] [address] Performed By: #### 2 4323-8 ####[facility] LABCLIA [id number] [place] [address] Protein [Mass/Vol] 7.4 g/dL Normal 6.3-8.0 [facility] Comment on above: Order Comment: Speci men Type: BLOOD SPECIMENOrdering Facility: [facility] Address: [address] [place] [address] Performed By: #### 2 4323-8 ####[facility] LABCLIA [id number] [place] [address] Sodium [Moles/Vol] 139 mmol/L Normal 136-144 [facility] Comment on above: Order Comment: Speci men Type: BLOOD SPECIMENOrdering Facility: [facility] Address: [address] [place] [address] Performed By: #### 2 4323-8 ####[facility] LABCLIA [id number] [place] [address] Urea nitrogen [Mass/Vol] 28 mg/dL High 04-[address] [facility] Comment on above: Order Comment: Speci men Type: BLOOD SPECIMENOrdering Facility: [facility] Address: [address] [place] [address] Performed By: #### 2 4323-8 ####[facility] LABCLIA [id number] [place] [address] TSH SerPl-aCncon 06-30-2023 TSH Qn 2.840 m[IU]/L Normal 0.270-4.[address] [facility] Comment on above: Order Comment: Speci men Type: BLOOD SPECIMENOrdering Facility: [facility] Address: [address] [place] [address] Performed By: #### 3 016-3 ####[facility] LABCLIA [id number] [place] [id number] [place] CNOVon 06-23-2023 CNOV [address] [facility] CNOVon 06-13-2023 CNOV Normal [facility] CNOVon 06-10-2023 CNOV Normal [facility] CBC W Auto Differential pane l (Bld)on 06-02-2023 Basophils (Bld) [#/Vol] <0.11 k/uL [facility] Basophils/100 WBC (Bld) 0.4 % [facility] Differential cell count method Nom (Bld) Auto [facility] Eosinophils (Bld) [#/Vol] 0.08 10*3/uL <0.46 k/uL [facility] Eosinophils/100 WBC (Bld) 1.5 % [facility] Erythrocyte distribution width (RBC) [Ratio] 13.9 % 11.5 - 15.0 % [facility] Hematocrit (Bld) [Volume fraction] 37.5 % Low 39.0 - 51.0 % [facility] Hemoglobin (Bld) [Mass/Vol] 12.9 g/dL Low 13.0 - 17.0 g/dL [facility] Immature granulocytes (Bld) [#/Vol] 0.03 10*3/uL <0.10 k/uL [facility] Immature granulocytes/100 WBC (Bld) 0.6 % [facility] Lymphocytes (Bld) [#/Vol] 0.76 10*3/uL Low 1.00 - 4.00 k/uL [facility] Lymphocytes/100 WBC (Bld) 14.1 % [facility] MCH (RBC) [Entitic mass] 31.7 pg 26.0 - 34.0 pg [facility] MCHC (RBC) [Mass/Vol] 34.4 g/dL 30.5 - 36.0 g/dL [facility] MCV (RBC) [Entitic vol] 92.1 fL 80.0 - 100.0 fL [facility] Monocytes (Bld) [#/Vol] 0.67 10*3/uL <0.87 k/uL [facility] Monocytes/100 WBC (Bld) 12.4 % [facility] Neutrophils (Bld) [#/Vol] 3.84 10*3/uL 1.45 - 7.50 k/uL [facility] Neutrophils/100 WBC (Bld) 71.0 % [facility] Nucleated RBC (Bld) [#/Vol] <0.01 k/uL [facility] Nucleated RBC/100 WBC (Bld) [Ratio] 0.0 /100 WBC [facility] Platelet mean volume (Bld) [Entitic vol] 10.6 fL 9.0 - 12.7 fL [facility] Platelets (Bld) [#/Vol] 205 10*3/uL 150 - 400 k/uL [facility] RBC (Bld) [#/Vol] 4.07 10*6/uL Low 4.20 - 6.00 m/uL [facility] WBC (Bld) [#/Vol] 5.40 10*3/uL 3.70 - 11.00 k/u L [facility] Basophils (Bld) [#/Vol] 10*3/uL Normal <0.[address] [facility] Comment on above: Order Comment: Speci men Type: BLOOD SPECIMENOrdering Facility: [facility] Address: [address] [place], [place] [address] Performed By: #### 5 7021-8 ####[facility] LABCLIA [id number] [place] [address] Basophils/100 WBC (Bld) 0.4 % Normal [facility] Comment on above: Order Comment: Speci men Type: BLOOD SPECIMENOrdering Facility: [facility] Address: [address] [place] [address] Performed By: #### 5 7021-8 ####[facility] LABCLIA [id number] [place] [address] Differential cell count method Nom (Bld) Auto Normal [facility] Comment on above: Order Comment: Speci men Type: BLOOD SPECIMENOrdering Facility: [facility] Address: [address] [place] [address] Performed By: #### 5 7021-8 ####[facility] LABCLIA [id number] [place] [address] Eosinophils (Bld) [#/Vol] 0.08 10*3/uL Normal <0.[address] [facility] Comment on above: Order Comment: Speci men Type: BLOOD SPECIMENOrdering Facility: [facility] Address: [address] [place] [address] Performed By: #### 5 7021-8 ####[facility] LABCLIA [id number] [place] [address] Eosinophils/100 WBC (Bld) 1.5 % Normal [facility] Comment on above: Order Comment: Speci men Type: BLOOD SPECIMENOrdering Facility: [facility] Address: [address] [place] [address] Performed By: #### 5 7021-8 ####[facility] LABCLIA [id number] [place] [address] Erythrocyte distribution width (RBC) [Ratio] 13.9 % Normal 11.5-15.[address] [facility] Comment on above: Order Comment: Speci men Type: BLOOD SPECIMENOrdering Facility: [facility] Address: [address] [place] [address] Performed By: #### 5 7021-8 ####[facility] LABCLIA [id number] [place] [address] Hematocrit (Bld) [Volume fraction] 37.5 % Low 39.0-51.[address] [facility] Comment on above: Order Comment: Speci men Type: BLOOD SPECIMENOrdering Facility: [facility] Address: [address] [place] [address] Performed By: #### 5 7021-8 ####[facility] LABCLIA [id number] [place] [address] Hemoglobin (Bld) [Mass/Vol] 12.9 g/dL Low 13.0-17.[address] [facility] Comment on above: Order Comment: Speci men Type: BLOOD SPECIMENOrdering Facility: [facility] Address: [address] [place] [address] Performed By: #### 5 7021-8 ####[facility] LABCLIA [id number] [place] [address] Immature granulocytes (Bld) [#/Vol] 0.03 10*3/uL Normal <0.[address] [facility] Comment on above: Order Comment: Speci men Type: BLOOD SPECIMENOrdering Facility: [facility] Address: [address] [place] [address] Performed By: #### 5 7021-8 ####[facility] LABCLIA [id number] [place] [address] Immature granulocytes/100 WBC (Bld) 0.6 % Normal [facility] Comment on above: Order Comment: Speci men Type: BLOOD SPECIMENOrdering Facility: [facility] Address: [address] [place] [address] Performed By: #### 5 7021-8 ####[facility] LABCLIA [id number] [place] [address] Lymphocytes (Bld) [#/Vol] 0.76 10*3/uL Low 1.00-4.[address] [facility] Comment on above: Order Comment: Speci men Type: BLOOD SPECIMENOrdering Facility: [facility] Address: [address] [place] [address] Performed By: #### 5 7021-8 ####[facility] LABCLIA [id number] [place] [address] Lymphocytes/100 WBC (Bld) 14.1 % Normal [facility] Comment on above: Order Comment: Speci men Type: BLOOD SPECIMENOrdering Facility: [facility] Address: [address] [place] [address] Performed By: #### 5 7021-8 ####[facility] LABCLIA [id number] [place] [address] MCH (RBC) [Entitic mass] 31.7 pg Normal 26.0-34.[address] [facility] Comment on above: Order Comment: Speci men Type: BLOOD SPECIMENOrdering Facility: [facility] Address: [address] [place] [address] Performed By: #### 5 7021-8 ####[facility] LABCLIA [id number] [place] [address] MCHC (RBC) [Mass/Vol] 34.4 g/dL Normal 30.5-36.[address] [facility] Comment on above: Order Comment: Speci men Type: BLOOD SPECIMENOrdering Facility: [facility] Address: [address] [place] [address] Performed By: #### 5 7021-8 ####[facility] LABCLIA [id number] [place] [address] MCV (RBC) [Entitic vol] 92.1 fL Normal 80.0-100.[address] [facility] Comment on above: Order Comment: Speci men Type: BLOOD SPECIMENOrdering Facility: [facility] Address: [address] [place] [address] Performed By: #### 5 7021-8 ####[facility] LABCLIA [id number] [place] [address] Monocytes (Bld) [#/Vol] 0.67 10*3/uL Normal <0.[address] [facility] Comment on above: Order Comment: Speci men Type: BLOOD SPECIMENOrdering Facility: [facility] Address: [address] [place] [address] Performed By: #### 5 7021-8 ####[facility] LABCLIA [id number] [place] [address] Monocytes/100 WBC (Bld) 12.4 % Normal [facility] Comment on above: Order Comment: Speci men Type: BLOOD SPECIMENOrdering Facility: [facility] Address: [address] [place] [address] Performed By: #### 5 7021-8 ####[facility] LABCLIA [id number] [place] [address] Neutrophils (Bld) [#/Vol] 3.84 10*3/uL Normal 1.45-7.[address] [facility] Comment on above: Order Comment: Speci men Type: BLOOD SPECIMENOrdering Facility: [facility] Address: [address] [place] [address] Performed By: #### 5 7021-8 ####[facility] LABCLIA [id number] [place] [address] Neutrophils/100 WBC (Bld) 71.0 % Normal [facility] Comment on above: Order Comment: Speci men Type: BLOOD SPECIMENOrdering Facility: [facility] Address: [address] [place] [address] Performed By: #### 5 7021-8 ####[facility] LABIA [id number] [place] [address] Nucleated RBC (Bld) [#/Vol] 10*3/uL Normal <0.[address] [facility] Comment on above: Order Comment: Speci men Type: BLOOD SPECIMENOrdering Facility: [facility] Address: [address] [place] [address] Performed By: #### 5 7021-8 ####[facility] LABCLIA [id number] [place] [address] Nucleated RBC/100 WBC (Bld) [Ratio] 0.0 /100 WBC Normal [facility] Comment on above: Order Comment: Speci men Type: BLOOD SPECIMENOrdering Facility: [facility] Address: [address] [place] [address] Performed By: #### 5 7021-8 ####[facility] LABCLIA [id number] [place] [address] Platelet mean volume (Bld) [Entitic vol] 10.6 fL Normal 9.0-12.[address] [facility] Comment on above: Order Comment: Speci men Type: BLOOD SPECIMENOrdering Facility: [facility] Address: [address] [place] [address] Performed By: #### 5 7021-8 ####[facility] LABCLIA [id number] [place] [address] Platelets (Bld) [#/Vol] 205 10*3/uL Normal 150-[address] [facility] Comment on above: Order Comment: Speci men Type: BLOOD SPECIMENOrdering Facility: [facility] Address: [address] [place] [address] Performed By: #### 5 7021-8 ####[facility] LABCLIA [id number] [place] [address] RBC (Bld) [#/Vol] 4.07 10*6/uL Low 4.20-6.00 [facility] Comment on above: Order Comment: Speci men Type: BLOOD SPECIMENOrdering Facility: [facility] Address: [address] [place] [address] Performed By: #### 5 7021-8 ####[facility] LABCLIA [id number] [place] [address] WBC (Bld) [#/Vol] 5.40 10*3/uL Normal 3.70-11.00 [facility] Comment on above: Order Comment: Speci men Type: BLOOD SPECIMENOrdering Facility: [facility] Address: [place] [address] Performed By: #### 5 7021-8 ####[facility] LABCLIA [id number] [place] [address] CNOVSPon 06-02-2023 CNOVSP Normal [facility] Comprehensive metabolic 2000 panelon 06-02-2023 Albumin [Mass/Vol] 4.3 g/dL 3.9 - 4.9 g/dL [facility] ALP [Catalytic activity/Vol] 58 U/L 38 - 113 U/L [facility] ALT [Catalytic activity/Vol] 14 U/L 10 - 54 U/L [facility] Anion gap [Moles/Vol] 10 mmol/L 9 - 18 mmol/L [facility] AST [Catalytic activity/Vol] 18 U/L 14 - 40 U/L [facility] Bilirubin [Mass/Vol] 0.5 mg/dL 0.2 - 1.3 mg/dL [facility] Calcium [Mass/Vol] 9.8 mg/dL 8.5 - 10.2 mg/dL [facility] Chloride [Moles/Vol] 102 mmol/L 97 - 105 mmol/L [facility] CO2 [Moles/Vol] 26 mmol/L 22 - 30 mmol/L [facility] Creatinine [Mass/Vol] 0.90 mg/dL 0.73 - 1.22 mg/dL [facility] Estimated Glomerular Filtration Rate 94 mL/min/1.73m >=60 mL/min/1.73m [facility] Glucose [Mass/Vol] 117 mg/dL High 74 - 99 mg/dL [facility] Potassium [Moles/Vol] 3.5 mmol/L Low 3.7 - 5.1 mmol/L [facility] Protein [Mass/Vol] 7.7 g/dL 6.3 - 8.0 g/dL [facility] Sodium [Moles/Vol] 138 mmol/L 136 - 144 mmol/L [facility] Urea nitrogen [Mass/Vol] 24 mg/dL 9 - 24 mg/dL [facility] Albumin [Mass/Vol] 4.3 g/dL Normal 3.9-4.9 [facility] Comment on above: Order Comment: Speci men Type: BLOOD SPECIMENOrdering Facility: [facility] Address: [address] [place] [address] Performed By: #### 2 4323-8 ####[facility] LABCLIA [id number] [place] [address] ALP [Catalytic activity/Vol] 58 U/L Normal 38-[address] [facility] Comment on above: Order Comment: Speci men Type: BLOOD SPECIMENOrdering Facility: [facility] Address: [address] [place] [address] Performed By: #### 2 4323-8 ####[facility] LABCLIA [id number] [place] [address] ALT [Catalytic activity/Vol] 14 U/L Normal 10-[address] [facility] Comment on above: Order Comment: Speci men Type: BLOOD SPECIMENOrdering Facility: [facility] Address: [address] [place] [address] Performed By: #### 2 4323-8 ####[facility] LABCLIA [id number] [place] [address] Anion gap [Moles/Vol] 10 mmol/L Normal 9-[address] [facility] Comment on above: Order Comment: Speci men Type: BLOOD SPECIMENOrdering Facility: [facility] Address: [address] [place] [address] Performed By: #### 2 4323-8 ####[facility] LABCLIA [id number] [place] [address] AST [Catalytic activity/Vol] 18 U/L Normal 14-[address] [facility] Comment on above: Order Comment: Speci men Type: BLOOD SPECIMENOrdering Facility: [facility] Address: [address] [place] [address] Performed By: #### 2 4323-8 ####[facility] LABCLIA [id number] [place] [address] Bilirubin [Mass/Vol] 0.5 mg/dL Normal 0.2-1.3 [facility] Comment on above: Order Comment: Speci men Type: BLOOD SPECIMENOrdering Facility: [facility] Address: [address] [place] [address] Performed By: #### 2 4323-8 ####[facility] LABCLIA [id number] [place] [address] Calcium [Mass/Vol] 9.8 mg/dL Normal 8.5-10.2 [facility] Comment on above: Order Comment: Speci men Type: BLOOD SPECIMENOrdering Facility: [facility] Address: [address] [place] [address] Performed By: #### 2 4323-8 ####[facility] LABCLIA [id number] [place] [address] Chloride [Moles/Vol] 102 mmol/L Normal 97-105 [facility] Comment on above: Order Comment: Speci men Type: BLOOD SPECIMENOrdering Facility: [facility] Address: [address] [place] [address] Performed By: #### 2 4323-8 ####[facility] LABCLIA [id number] [place] [address] CO2 [Moles/Vol] 26 mmol/L Normal 22-[address] [facility] Comment on above: Order Comment: Speci men Type: BLOOD SPECIMENOrdering Facility: [facility] Address: [address] [place] [address] Performed By: #### 2 4323-8 ####[facility] LABCLIA [id number] [place] [address] Creatinine [Mass/Vol] 0.90 mg/dL Normal 0.73-1.[address] [facility] Comment on above: Order Comment: Speci men Type: BLOOD SPECIMENOrdering Facility: [facility] Address: [address] [place] [address] Performed By: #### 2 4323-8 ####[facility] LABCLIA [id number] [place] [address] Creatinine and Glomerular filtration rate.predicted panel (S/P/Bld) 94 mL/min/1.73m??? Normal >=[address] [facility] Comment on above: Order Comment: Speci men Type: BLOOD SPECIMENOrdering Facility: [facility] Address: [address] [place] [address] Result Comment: Landy mated Glomerular Filtration Rate [...] actual GFR. Performed By: #### 2 4323-8 ####[facility] LABIA [id number] [place] [address] Glucose [Mass/Vol] 117 mg/dL High 74-99 [facility] Comment on above: Order Comment: Speci men Type: BLOOD SPECIMENOrdering Facility: [facility] Address: [address] [place] [address] Result Comment: The [place] [employer] (ADA) provides guidance for cutoff [...] Standards of Medical Care in Diabetes 2016, [place] [employer]. Diabetes Care. 2016.39(Suppl 1). Performed By: #### 2 4323-8 ####[facility] LABIA [id number] [place] [address] Potassium [Moles/Vol] 3.5 mmol/L Low 3.7-5.[address] [facility] Comment on above: Order Comment: Speci men Type: BLOOD SPECIMENOrdering Facility: [facility] Address: [address] [place] [address] Performed By: #### 2 4323-8 ####[facility] LABCLIA [id number] [place] [address] Protein [Mass/Vol] 7.7 g/dL Normal 6.3-8.0 [facility] Comment on above: Order Comment: Speci men Type: BLOOD SPECIMENOrdering Facility: [facility] Address: [address] [place] [address] Performed By: #### 2 4323-8 ####[facility] LABIA [id number] [place] [address] Sodium [Moles/Vol] 138 mmol/L Normal 136-144 [facility] Comment on above: Order Comment: Speci men Type: BLOOD SPECIMENOrdering Facility: [facility] Address: [address] [place] [address] Performed By: #### 2 4323-8 ####[facility] LABIA [id number] [place] [address] Urea nitrogen [Mass/Vol] 24 mg/dL Normal 9-[address] [facility] Comment on above: Order Comment: Speci men Type: BLOOD SPECIMENOrdering Facility: [facility] Address: [address] [place] [address] Performed By: #### 2 4323-8 ####[facility] LABIA [id number] [place] [address] CNCNPATEDon 05-30-2023 CNCNPATED Normal [facility] CNOVon 05-30-2023 CNOV Normal [facility] CNOVon 05-27-2023 CNOV Normal [facility] CNCNPATEDon 05-20-2023 CNCNPATED Normal [facility] CNPNon 05-20-2023 CNPN Normal [facility] CNPNon 05-19-2023 CNPN Normal [facility] CNOVon 05-16-2023 CNOV Normal [facility] CNPNon 05-15-2023 CNPN Normal [facility] CNPNon 05-14-2023 CNPN Normal [facility] CBC W Auto Differential pane l (Bld)on 05-13-2023 Basophils (Bld) [#/Vol] 10*3/uL Normal <0.[address] [facility] Comment on above: Order Comment: Speci men Type: BLOOD SPECIMENOrdering Facility: [facility] Address: [address] [place] [address] Performed By: #### 5 7021-8 ####[facility] LABCLIA [id number] [place] [address] Basophils/100 WBC (Bld) 0.3 % Normal [facility] Comment on above: Order Comment: Speci men Type: BLOOD SPECIMENOrdering Facility: [facility] Address: [address] [place] [address] Performed By: #### 5 7021-8 ####[facility] LABCLIA [id number] [place] [address] Differential cell count method Nom (Bld) Auto Normal [facility] Comment on above: Order Comment: Speci men Type: BLOOD SPECIMENOrdering Facility: [facility] Address: [address] [place] [address] Performed By: #### 5 7021-8 ####[facility] LABCLIA [id number] [place] [address] Eosinophils (Bld) [#/Vol] 0.14 10*3/uL Normal <0.[address] [facility] Comment on above: Order Comment: Speci men Type: BLOOD SPECIMENOrdering Facility: [facility] Address: [address] [place] [address] Performed By: #### 5 7021-8 ####[facility] LABCLIA [id number] [place] [address] Eosinophils/100 WBC (Bld) 2.3 % Normal [facility] Comment on above: Order Comment: Speci men Type: BLOOD SPECIMENOrdering Facility: [facility] Address: [address] [place] [address] Performed By: #### 5 7021-8 ####[facility] LABCLIA [id number] [place] [address] Erythrocyte distribution width (RBC) [Ratio] 13.7 % Normal 11.5-15.[address] [facility] Comment on above: Order Comment: Speci men Type: BLOOD SPECIMENOrdering Facility: [facility] Address: [address] [place] [address] Performed By: #### 5 7021-8 ####[facility] LABCLIA [id number] [place] [address] Hematocrit (Bld) [Volume fraction] 37.6 % Low 39.0-51.[address] [facility] Comment on above: Order Comment: Speci men Type: BLOOD SPECIMENOrdering Facility: [facility] Address: [address] [place] [address] Performed By: #### 5 7021-8 ####[facility] LABCLIA [id number] [place] [address] Hemoglobin (Bld) [Mass/Vol] 13.0 g/dL Normal 13.0-17.[address] [facility] Comment on above: Order Comment: Speci men Type: BLOOD SPECIMENOrdering Facility: [facility] Address: [address] [place] [address] Performed By: #### 5 7021-8 ####[facility] LABCLIA [id number] [place] [address] Immature granulocytes (Bld) [#/Vol] 0.03 10*3/uL Normal <0.[address] [facility] Comment on above: Order Comment: Speci men Type: BLOOD SPECIMENOrdering Facility: [facility] Address: [address] [place] [address] Performed By: #### 5 7021-8 ####[facility] LABCLIA [id number] [place] [address] Immature granulocytes/100 WBC (Bld) 0.5 % Normal [facility] Comment on above: Order Comment: Speci men Type: BLOOD SPECIMENOrdering Facility: [facility] Address: [address] [place] [address] Performed By: #### 5 7021-8 ####[facility] LABCLIA [id number] [place] [address] Lymphocytes (Bld) [#/Vol] 1.01 10*3/uL Normal 1.00-4.[address] [facility] Comment on above: Order Comment: Speci men Type: BLOOD SPECIMENOrdering Facility: [facility] Address: [address] [place] [address] Performed By: #### 5 7021-8 ####[facility] LABCLIA [id number] [place] [address] Lymphocytes/100 WBC (Bld) 16.4 % Normal [facility] Comment on above: Order Comment: Speci men Type: BLOOD SPECIMENOrdering Facility: [facility] Address: [address] [place] [address] Performed By: #### 5 7021-8 ####[facility] LABCLIA [id number] [place] [address] MCH (RBC) [Entitic mass] 31.9 pg Normal 26.0-34.[address] [facility] Comment on above: Order Comment: Speci men Type: BLOOD SPECIMENOrdering Facility: [facility] Address: [address] [place] [address] Performed By: #### 5 7021-8 ####[facility] LABCLIA [id number] [place] [address] MCHC (RBC) [Mass/Vol] 34.6 g/dL Normal 30.5-36.[address] [facility] Comment on above: Order Comment: Speci men Type: BLOOD SPECIMENOrdering Facility: [facility] Address: [address] [place] [address] Performed By: #### 5 7021-8 ####[facility] LABCLIA [id number] [place] [address] MCV (RBC) [Entitic vol] 92.2 fL Normal 80.0-100.[address] [facility] Comment on above: Order Comment: Speci men Type: BLOOD SPECIMENOrdering Facility: [facility] Address: [address] [place] [address] Performed By: #### 5 7021-8 ####[facility] LABCLIA [id number] [place] [address] Monocytes (Bld) [#/Vol] 0.86 10*3/uL Normal <0.[address] [facility] Comment on above: Order Comment: Speci men Type: BLOOD SPECIMENOrdering Facility: [facility] Address: [address] [place] [address] Performed By: #### 5 7021-8 ####[facility] LABIA [id number] [place] [address] Monocytes/100 WBC (Bld) 14.0 % Normal [facility] Comment on above: Order Comment: Speci men Type: BLOOD SPECIMENOrdering Facility: [facility] Address: [address] [place] [address] Performed By: #### 5 7021-8 ####[facility] LABCLIA [id number] [place] [address] Neutrophils (Bld) [#/Vol] 4.09 10*3/uL Normal 1.45-7.[address] [facility] Comment on above: Order Comment: Speci men Type: BLOOD SPECIMENOrdering Facility: [facility] Address: [address] [place] [address] Performed By: #### 5 7021-8 ####[facility] LABCLIA [id number] [place] [address] Neutrophils/100 WBC (Bld) 66.5 % Normal [facility] Comment on above: Order Comment: Speci men Type: BLOOD SPECIMENOrdering Facility: [facility] Address: [address] [place] [address] Performed By: #### 5 7021-8 ####[facility] LABCLIA [id number] [place] [address] Nucleated RBC (Bld) [#/Vol] 10*3/uL Normal <0.[address] [facility] Comment on above: Order Comment: Speci men Type: BLOOD SPECIMENOrdering Facility: [facility] Address: [address] [place] [address] Performed By: #### 5 7021-8 ####[facility] LABCLIA [id number] [place] [address] Nucleated RBC/100 WBC (Bld) [Ratio] 0.0 /100 WBC Normal [facility] Comment on above: Order Comment: Speci men Type: BLOOD SPECIMENOrdering Facility: [facility] Address: [address] [place] [address] Performed By: #### 5 7021-8 ####[facility] LABCLIA [id number] [place] [address] Platelet mean volume (Bld) [Entitic vol] 11.4 fL Normal 9.0-12.[address] [facility] Comment on above: Order Comment: Speci men Type: BLOOD SPECIMENOrdering Facility: [facility] Address: [address] [place] [address] Performed By: #### 5 7021-8 ####[facility] LABCLIA [id number] [place] [address] Platelets (Bld) [#/Vol] 188 10*3/uL Normal 150-[address] [facility] Comment on above: Order Comment: Speci men Type: BLOOD SPECIMENOrdering Facility: [facility] Address: [address] [place] [address] Performed By: #### 5 7021-8 ####[facility] LABCLIA [id number] [place] [address] RBC (Bld) [#/Vol] 4.08 10*6/uL Low 4.20-6.00 [facility] Comment on above: Order Comment: Speci men Type: BLOOD SPECIMENOrdering Facility: [facility] Address: [address] [place] [address] Performed By: #### 5 7021-8 ####[facility] LABCLIA [id number] [place] [address] WBC (Bld) [#/Vol] 6.15 10*3/uL Normal 3.70-11.00 [facility] Comment on above: Order Comment: Speci men Type: BLOOD SPECIMENOrdering Facility: [facility] Address: [address] [place] [address] Performed By: #### 5 7021-8 ####[facility] LABCLIA [id number] [place] [address] CNOVSPon 05-13-2023 CNOVSP [address] [facility] CNPNon 05-13-2023 CNPN Normal [facility] Comprehensive metabolic 2000 panelon 05-13-2023 Albumin [Mass/Vol] 4.5 g/dL Normal 3.9-4.9 [facility] Comment on above: Order Comment: Speci men Type: BLOOD SPECIMENOrdering Facility: [facility] Address: [address] [place] [address] Performed By: #### 2 4323-8 ####[facility] LABCLIA [id number] [place] [address] ALP [Catalytic activity/Vol] 68 U/L Normal 38-[address] [facility] Comment on above: Order Comment: Speci men Type: BLOOD SPECIMENOrdering Facility: [facility] Address: [address] [place] [address] Performed By: #### 2 4323-8 ####[facility] LABCLIA [id number] [place] [address] ALT [Catalytic activity/Vol] 24 U/L Normal 10-[address] [facility] Comment on above: Order Comment: Speci men Type: BLOOD SPECIMENOrdering Facility: [facility] Address: [address] [place] [address] Performed By: #### 2 4323-8 ####[facility] LABCLIA [id number] [place] [address] Anion gap [Moles/Vol] 7 mmol/L Low 9-[address] [facility] Comment on above: Order Comment: Speci men Type: BLOOD SPECIMENOrdering Facility: [facility] Address: [address] [place] [address] Performed By: #### 2 4323-8 ####[facility] LABCLIA [id number] [place] [address] AST [Catalytic activity/Vol] 24 U/L Normal 14-[address] [facility] Comment on above: Order Comment: Speci men Type: BLOOD SPECIMENOrdering Facility: [facility] Address: [address] [place] [address] Performed By: #### 2 4323-8 ####[facility] LABCLIA [id number] [place] [address] Bilirubin [Mass/Vol] 0.4 mg/dL Normal 0.2-1.3 [facility] Comment on above: Order Comment: Speci men Type: BLOOD SPECIMENOrdering Facility: [facility] Address: [address] [place] [address] Performed By: #### 2 4323-8 ####[facility] LABCLIA [id number] [place] [address] Calcium [Mass/Vol] 9.8 mg/dL Normal 8.5-10.2 [facility] Comment on above: Order Comment: Speci men Type: BLOOD SPECIMENOrdering Facility: [facility] Address: [address] [place] [address] Performed By: #### 2 4323-8 ####[facility] LABCLIA [id number] [place] [address] Chloride [Moles/Vol] 102 mmol/L Normal 97-105 [facility] Comment on above: Order Comment: Speci men Type: BLOOD SPECIMENOrdering Facility: [facility] Address: [address] [place] [address] Performed By: #### 2 4323-8 ####[facility] LABCLIA [id number] [place] [address] CO2 [Moles/Vol] 28 mmol/L Normal 22-[address] [facility] Comment on above: Order Comment: Speci men Type: BLOOD SPECIMENOrdering Facility: [facility] Address: [address] [place] [address] Performed By: #### 2 4323-8 ####[facility] LABCLIA [id number] [place] [address] Creatinine [Mass/Vol] 1.06 mg/dL Normal 0.73-1.[address] [facility] Comment on above: Order Comment: Speci men Type: BLOOD SPECIMENOrdering Facility: [facility] Address: [address] [place] [address] Performed By: #### 2 4323-8 ####[facility] LABCLIA [id number] [place] [address] Creatinine and Glomerular filtration rate.predicted panel (S/P/Bld) 77 mL/min/1.73m??? Normal >=[address] [facility] Comment on above: Order Comment: Speci men Type: BLOOD SPECIMENOrdering Facility: [facility] Address: [address] [place] [address] Result Comment: Landy mated Glomerular Filtration Rate [...] actual GFR. Performed By: #### 2 4323-8 ####[facility] LABCLIA [id number] [place] [address] Glucose [Mass/Vol] 150 mg/dL High 74-99 [facility] Comment on above: Order Comment: Speci men Type: BLOOD SPECIMENOrdering Facility: [facility] Address: [address] [place] [address] Result Comment: The [employer] [employer] (ADA) provides guidance for cutoff [...] Standards of Medical Care in Diabetes 2016, [employer] [employer]. Diabetes Care. 2016.39(Suppl 1). Performed By: #### 2 4323-8 ####[facility] LABCLIA [id number] [place] [address] Potassium [Moles/Vol] 3.4 mmol/L Low 3.7-5.[address] [facility] Comment on above: Order Comment: Speci men Type: BLOOD SPECIMENOrdering Facility: [facility] Address: [address] [place] [address] Performed By: #### 2 4323-8 ####[facility] LABCLIA [id number] [place] [address] Protein [Mass/Vol] 7.5 g/dL Normal 6.3-8.0 [facility] Comment on above: Order Comment: Ajay men Type: BLOOD SPECIMENOrdering Facility: [facility] Address: [address] [place] [address] Performed By: #### 2 4323-8 ####[facility] LABCLIA [id number] [place] [address] Sodium [Moles/Vol] 137 mmol/L Normal 136-144 [facility] Comment on above: Order Comment: Speci men Type: BLOOD SPECIMENOrdering Facility: [facility] Address: [address] [place] [address] Performed By: #### 2 4323-8 ####[facility] LABCLIA [id number] [place] [address] Urea nitrogen [Mass/Vol] 30 mg/dL High 9- [facility] Comment on above: Order Comment: Speci men Type: BLOOD SPECIMENOrdering Facility: [facility] Address: [address] [place] [address] Performed By: #### 2 4323-8 ####[facility] LABCLIA [id number] [place] [address] T4/FTI/T4Uon 05-13-2023 FTI 6.6 ug/dL Normal 5.3-10.[address] [facility] Comment on above: Order Comment: Speci men Type: BLOOD SPECIMENOrdering Facility: [facility] Address: [address] [place] [address] Performed By: #### T 4FALEJANDRO, 6-3 ####[facility] LABCLIA [id number] [place] [address] [place] T4 [Mass/Vol] 6.3 ug/dL Normal 5.5-10.[address] [facility] Comment on above: Order Comment: Speci men Type: BLOOD SPECIMENOrdering Facility: [facility] Address: [address] [place] [address] Performed By: #### T ROCIO, 6-3 ####[facility] LABCLIA [id number] [address] [address] [place] T4 uptake [Mass/Vol] 0.96 Normal 0.91-1.19 [facility] Comment on above: Order Comment: Speci men Type: BLOOD SPECIMENOrdering Facility: [facility] Address: [address] [place] [address] Performed By: #### Lexi 4FALEJANDRO, 6-3 ####[facility] LABCLIA [id number] [place] [address] [place] TSH SerPl-aCncon 05-13-2023 TSH Qn 47.800 m[IU]/L High 0.270-4.[address] [facility] Comment on above: Order Comment: Speci men Type: BLOOD SPECIMENOrdering Facility: [facility] Address: [address] [place] [address] Performed By: #### Lexi CHAN, 3015-3 ####[facility] LABCLIA [id number] [place] [address] [place] NM PET/CT SKULL-THIGH SUBQon 05-12-2023 NM PET/CT SKULL-THIGH SUBQ Normal [facility] CNPNon 05-08-2023 CNPN Normal [facility] CNPNon 04-23-2023 CNPN Normal [facility] CBC W Auto Differential pane l (Bld)on 04-22-2023 Basophils (Bld) [#/Vol] 0.04 10*3/uL Normal <0.[address] [facility] Comment on above: Order Comment: Speci men Type: BLOOD SPECIMENOrdering Facility: [facility] Address: [address] [place] [address] Performed By: #### 5 7021-8 ####[facility] LABCLIA [id number] [place] [address] Basophils/100 WBC (Bld) 0.8 % Normal [facility] Comment on above: Order Comment: Speci men Type: BLOOD SPECIMENOrdering Facility: [facility] Address: [address] Performed By: #### 5 7021-8 ####[facility] LABCLIA [id number] [place] [address] Differential cell count method Nom (Bld) Auto Normal [facility] Comment on above: Order Comment: Speci men Type: BLOOD SPECIMENOrdering Facility: [facility] Address: [address] [place] [address] Performed By: #### 5 7021-8 ####[facility] LABCLIA [id number] [place] [address] Eosinophils (Bld) [#/Vol] 0.07 10*3/uL Normal <0.[address] [facility] Comment on above: Order Comment: Speci men Type: BLOOD SPECIMENOrdering Facility: [facility] Address: [address] [place] [address] Performed By: #### 5 7021-8 ####[facility] LABCLIA [id number] [place] [address] Eosinophils/100 WBC (Bld) 1.4 % Normal [facility] Comment on above: Order Comment: Speci men Type: BLOOD SPECIMENOrdering Facility: [facility] Address: [address] [place] [address] Performed By: #### 5 7021-8 ####[facility] LABCLIA [id number] [place] [address] Erythrocyte distribution width (RBC) [Ratio] 14.5 % Normal 11.5-15.[address] [facility] Comment on above: Order Comment: Speci men Type: BLOOD SPECIMENOrdering Facility: [facility] Address: [address] [place] [address] Performed By: #### 5 7021-8 ####[facility] LABCLIA [id number] [place] [address] Hematocrit (Bld) [Volume fraction] 39.9 % Normal 39.0-51.[address] [facility] Comment on above: Order Comment: Speci men Type: BLOOD SPECIMENOrdering Facility: [facility] Address: [address] [place] [address] Performed By: #### 5 7021-8 ####[facility] LABCLIA [id number] [place] [address] Hemoglobin (Bld) [Mass/Vol] 13.7 g/dL Normal 13.0-17.[address] [facility] Comment on above: Order Comment: Speci men Type: BLOOD SPECIMENOrdering Facility: [facility] Address: [address] [place] [address] Performed By: #### 5 7021-8 ####[facility] LABCLIA [id number] [place] [address] Immature granulocytes (Bld) [#/Vol] 0.05 10*3/uL Normal <0.[address] [facility] Comment on above: Order Comment: Speci men Type: BLOOD SPECIMENOrdering Facility: [facility] Address: [address] [place] [address] Performed By: #### 5 7021-8 ####[facility] LABCLIA [id number] [place] [address] Immature granulocytes/100 WBC (Bld) 1.0 % Normal [facility] Comment on above: Order Comment: Speci men Type: BLOOD SPECIMENOrdering Facility: [facility] Address: [address] [place] [address] Performed By: #### 5 7021-8 ####[facility] LABCLIA [id number] [place] [address] Lymphocytes (Bld) [#/Vol] 0.82 10*3/uL Low 1.00-4.[address] [facility] Comment on above: Order Comment: Speci men Type: BLOOD SPECIMENOrdering Facility: [facility] Address: [address] [place] [address] Performed By: #### 5 7021-8 ####[facility] LABCLIA [id number] [place] [address] Lymphocytes/100 WBC (Bld) 16.2 % Normal [facility] Comment on above: Order Comment: Speci men Type: BLOOD SPECIMENOrdering Facility: [facility] Address: [address] [place] [address] Performed By: #### 5 7021-8 ####[facility] LABCLIA [id number] [place] [address] MCH (RBC) [Entitic mass] 32.0 pg Normal 26.0-34.[address] [facility] Comment on above: Order Comment: Speci men Type: BLOOD SPECIMENOrdering Facility: [facility] Address: [address] [place] [address] Performed By: #### 5 7021-8 ####[facility] LABCLIA [id number] [place] [address] MCHC (RBC) [Mass/Vol] 34.3 g/dL Normal 30.5-36.[address] [facility] Comment on above: Order Comment: Speci men Type: BLOOD SPECIMENOrdering Facility: [facility] Address: [address] [place] [address] Performed By: #### 5 7021-8 ####[facility] LABCLIA [id number] [place] [address] MCV (RBC) [Entitic vol] 93.2 fL Normal 80.0-100.[address] [facility] Comment on above: Order Comment: Speci men Type: BLOOD SPECIMENOrdering Facility: [facility] Address: [address] [address] Performed By: #### 5 7021-8 ####[facility] LABCLIA [id number] [place] [address] Monocytes (Bld) [#/Vol] 0.45 10*3/uL Normal <0.[address] [facility] Comment on above: Order Comment: Speci men Type: BLOOD SPECIMENOrdering Facility: [facility] Address: [address] [place] [address] Performed By: #### 5 7021-8 ####[facility] LABCLIA [id number] [place] [address] Monocytes/100 WBC (Bld) 8.9 % Normal [facility] Comment on above: Order Comment: Speci men Type: BLOOD SPECIMENOrdering Facility: [facility] Address: [address] [place] [address] Performed By: #### 5 7021-8 ####[facility] LABCLIA [id number] [place] [address] Neutrophils (Bld) [#/Vol] 3.63 10*3/uL Normal 1.45-7.[address] [facility] Comment on above: Order Comment: Speci men Type: BLOOD SPECIMENOrdering Facility: [facility] Address: [address] [place] [address] Performed By: #### 5 7021-8 ####[facility] LABCLIA [id number] [place] [address] Neutrophils/100 WBC (Bld) 71.7 % Normal [facility] Comment on above: Order Comment: Speci men Type: BLOOD SPECIMENOrdering Facility: [facility] Address: [address] [place] [address] Performed By: #### 5 7021-8 ####[facility] LABCLIA [id number] [place] [address] Nucleated RBC (Bld) [#/Vol] 10*3/uL Normal <0.[address] [facility] Comment on above: Order Comment: Speci men Type: BLOOD SPECIMENOrdering Facility: [facility] Address: [address] [place] [address] Performed By: #### 5 7021-8 ####[facility] LABCLIA [id number] [place] [address] Nucleated RBC/100 WBC (Bld) [Ratio] 0.0 /100 WBC Normal [facility] Comment on above: Order Comment: Speci men Type: BLOOD SPECIMENOrdering Facility: [facility] Address: [address] [place] [address] Performed By: #### 5 7021-8 ####[facility] LABCLIA [id number] [place] [address] Platelet mean volume (Bld) [Entitic vol] 10.2 fL Normal 9.0-12.[address] [facility] Comment on above: Order Comment: Speci men Type: BLOOD SPECIMENOrdering Facility: [facility] Address: [address] [place] [address] Performed By: #### 5 7021-8 ####[facility] LABCLIA [id number] [place] [address] Platelets (Bld) [#/Vol] 206 10*3/uL Normal 150-[address] [facility] Comment on above: Order Comment: Speci men Type: BLOOD SPECIMENOrdering Facility: [facility] Address: [address] [place] [address] Performed By: #### 5 7021-8 ####[facility] LABIA [id number] [place] [address] RBC (Bld) [#/Vol] 4.28 10*6/uL Normal 4.20-6.00 [facility] Comment on above: Order Comment: Speci men Type: BLOOD SPECIMENOrdering Facility: [facility] Address: [address] [place] [address] Performed By: #### 5 7021-8 ####[facility] LABIA [id number] [place] [address] WBC (Bld) [#/Vol] 5.06 10*3/uL Normal 3.70-11.00 [facility] Comment on above: Order Comment: Speci men Type: BLOOD SPECIMENOrdering Facility: [facility] Address: [address] [place] [address] Performed By: #### 5 7021-8 ####[facility] LABCLIA [id number] [place] [address] CNOVSPon 04-22-2023 CNOVSP [address] [facility] Comprehensive metabolic 2000 panelon 04-22-2023 Albumin [Mass/Vol] 4.5 g/dL Normal 3.9-4.9 [facility] Comment on above: Order Comment: Speci men Type: BLOOD SPECIMENOrdering Facility: [facility] Address: [address] [place] [address] Performed By: #### 2 4323-8 ####[facility] LABCLIA [id number] [place] [address] ALP [Catalytic activity/Vol] 72 U/L Normal 38-[address] [facility] Comment on above: Order Comment: Speci men Type: BLOOD SPECIMENOrdering Facility: [facility] Address: [address] [place] [address] Performed By: #### 2 4323-8 ####[facility] LABCLIA [id number] [place] [address] ALT [Catalytic activity/Vol] 39 U/L Normal 10-[address] [facility] Comment on above: Order Comment: Speci men Type: BLOOD SPECIMENOrdering Facility: [facility] Address: [address] [place] [address] Performed By: #### 2 4323-8 ####[facility] LABCLIA [id number] [place] [address] Anion gap [Moles/Vol] 8 mmol/L Low 9-[address] [facility] Comment on above: Order Comment: Speci men Type: BLOOD SPECIMENOrdering Facility: [facility] Address: [address] [place] [address] Performed By: #### 2 4323-8 ####[facility] LABCLIA [id number] [place] [address] AST [Catalytic activity/Vol] 27 U/L Normal 14-[address] [facility] Comment on above: Order Comment: Speci men Type: BLOOD SPECIMENOrdering Facility: [facility] Address: [address] [address] Performed By: #### 2 4323-8 ####[facility] LABCLIA [id number] [place] [address] Bilirubin [Mass/Vol] 0.8 mg/dL Normal 0.2-1.3 [facility] Comment on above: Order Comment: Speci men Type: BLOOD SPECIMENOrdering Facility: [facility] Address: [address] [address] Performed By: #### 2 4323-8 ####[facility] LABCLIA [id number] [place] [address] Calcium [Mass/Vol] 9.7 mg/dL Normal 8.5-10.2 [facility] Comment on above: Order Comment: Speci men Type: BLOOD SPECIMENOrdering Facility: [facility] Address: [address] [address] Performed By: #### 2 4323-8 ####[facility] LABCLIA [id number] [place] [address] Chloride [Moles/Vol] 103 mmol/L Normal 97-105 [facility] Comment on above: Order Comment: Speci men Type: BLOOD SPECIMENOrdering Facility: [facility] Address: [address] [address] Performed By: #### 2 4323-8 ####[facility] LABCLIA [id number] [place] [address] CO2 [Moles/Vol] 28 mmol/L Normal 22-[address] [facility] Comment on above: Order Comment: Speci men Type: BLOOD SPECIMENOrdering Facility: [facility] Address: [address] [address] Performed By: #### 2 4323-8 ####[facility] LABCLIA [id number] [place] [address] Creatinine [Mass/Vol] 1.11 mg/dL Normal 0.73-1.[address] [facility] Comment on above: Order Comment: Ajay rausch Type: BLOOD SPECIMENOrdering Facility: [facility] Address: [address] [id number] Performed By: #### 2 4323-8 ####[facility] LABCLIA [id number] [place] [address] Creatinine and Glomerular filtration rate.predicted panel (S/P/Bld) 73 mL/min/1.73m??? Normal >=[address] [facility] Comment on above: Order Comment: Ajay rausch Type: BLOOD SPECIMENOrdering Facility: [facility] Address: [address] [place] [address] Result Comment: Landy mated Glomerular Filtration Rate [...] actual GFR. Performed By: #### 2 4323-8 ####[facility] LABIA [id number] [place] [address] Glucose [Mass/Vol] 137 mg/dL High 74-99 [facility] Comment on above: Order Comment: Ajay rausch Type: BLOOD SPECIMENOrdering Facility: [facility] Address: [address] [place], [place] [phone] Result Comment: The [place] Diabetes Association (ADA) provides guidance for cutoff [...] Standards of Medical Care in Diabetes 2016, [employer] [employer]. Diabetes Care. 2016.39(Suppl 1). Performed By: #### 2 4323-8 ####[facility] LABCLIA [id number] [place] [address] Potassium [Moles/Vol] 3.9 mmol/L Normal 3.7-5.[address] [facility] Comment on above: Order Comment: Speci men Type: BLOOD SPECIMENOrdering Facility: [facility] Address: [address] [address] Performed By: #### 2 4323-8 ####[facility] LABCLIA [id number] [place] [address] Protein [Mass/Vol] 7.1 g/dL Normal 6.3-8.0 [facility] Comment on above: Order Comment: Speci men Type: BLOOD SPECIMENOrdering Facility: [facility] Address: [address] [address] Performed By: #### 2 4323-8 ####[facility] LABCLIA [id number] [place] [address] Sodium [Moles/Vol] 139 mmol/L Normal 136-144 [facility] Comment on above: Order Comment: Speci men Type: BLOOD SPECIMENOrdering Facility: [facility] Address: [address] [address] Performed By: #### 2 4323-8 ####[facility] LABCLIA [id number]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 ratio] 1.3 {ratio} [facility] Serum or plasma anion gap de terminationOrdered By: Sapna Angulo on 01-03-2023 Anion gap [Moles/Vol] 11.2 mmol/L 6.0-15.0 [facility] Serum or plasma non-glucuron idated bilirubin measurement (mass/volume)Ordered By: Sapna Angulo on 01-03-2023 Bilirubin.indirect [Mass/Vol] 0.7 mg/dL [facility] Sodium [Moles/volume] in Ser um or PlasmaOrdered By: Sapna Angulo on 01-03-2023 Sodium [Moles/Vol] 138 mmol/L 136-145 [facility] Troponin I.cardiac [Mass/vol ume] in Serum or Plasma by Detection limit <= 0.01 ng/Ordered By: Sapna Angulo on 01-03-2023 Troponin I.cardiac DL <= 0.01 ng/mL [Mass/Vol] 11.0 pg/mL 0.0-20.0 [facility] Urea nitrogen [Mass/volume] in Serum or PlasmaOrdered By: Sapna Angulo on 01-03-2023 Urea nitrogen [Mass/Vol] 24 mg/dL 7-25 [facility] WBC Auto (Bld) [#/Vol]Ordere d By: Sapna Angulo on 01-03-2023 WBC (Bld) [#/Vol] 5.6 10*3/uL 4.1-10.5 [facility] Comprehensive metabolic 2000 panelon 11-25-2022 Albumin [Mass/Vol] 3.9 g/dL 3.9 - 4.9 g/dL [facility] ALP [Catalytic activity/Vol] 58 U/L 38 - 113 U/L [facility] ALT [Catalytic activity/Vol] 248 U/L High 10 - 54 U/L [facility] Anion gap [Moles/Vol] 8 mmol/L Low 9 - 18 mmol/L [facility] AST [Catalytic activity/Vol] 142 U/L High 14 - 40 U/L [facility] Bilirubin [Mass/Vol] 1.1 mg/dL 0.2 - 1.3 mg/dL [facility] Calcium [Mass/Vol] 9.7 mg/dL 8.5 - 10.2 mg/dL [facility] Chloride [Moles/Vol] 96 mmol/L Low 97 - 105 mmol/L [facility] CO2 [Moles/Vol] 26 mmol/L 22 - 30 mmol/L [facility] Creatinine [Mass/Vol] 0.97 mg/dL 0.73 - 1.22 mg/dL [facility] Estimated Glomerular Filtration Rate 87 mL/min/1.73m >=60 mL/min/1.73m [facility] Glucose [Mass/Vol] 159 mg/dL High 74 - 99 mg/dL [facility] Potassium [Moles/Vol] 3.6 mmol/L Low 3.7 - 5.1 mmol/L [facility] Protein [Mass/Vol] 7.5 g/dL 6.3 - 8.0 g/dL [facility] Sodium [Moles/Vol] 130 mmol/L Low 136 - 144 mmol/L [facility] Urea nitrogen [Mass/Vol] 15 mg/dL 9 - 24 mg/dL [facility] LD LACTATE DEHYDROon 023 LDH [Catalytic activity/Vol] 291 U/L High 135 - 225 U/L [facility] CBC W Auto Differential pane l (Bld)on 10-31-2022 Basophils (Bld) [#/Vol] <0.11 k/uL [facility] Basophils/100 WBC (Bld) 0.4 % [facility] Differential cell count method Nom (Bld) Auto [facility] Eosinophils (Bld) [#/Vol] 0.17 10*3/uL <0.46 k/uL [facility] Eosinophils/100 WBC (Bld) 3.7 % [facility] Erythrocyte distribution width (RBC) [Ratio] 14.7 % 11.5 - 15.0 % [facility] Hematocrit (Bld) [Volume fraction] 32.0 % Low 39.0 - 51.0 % [facility] Hemoglobin (Bld) [Mass/Vol] 10.8 g/dL Low 13.0 - 17.0 g/dL [facility] Immature granulocytes (Bld) [#/Vol] <0.10 k/uL [facility] Immature granulocytes/100 WBC (Bld) 0.2 % [facility] Lymphocytes (Bld) [#/Vol] 0.59 10*3/uL Low 1.00 - 4.00 k/uL [facility] Lymphocytes/100 WBC (Bld) 12.9 % [facility] MCH (RBC) [Entitic mass] 30.3 pg 26.0 - 34.0 pg [facility] MCHC (RBC) [Mass/Vol] 33.8 g/dL 30.5 - 36.0 g/dL [facility] MCV (RBC) [Entitic vol] 89.6 fL 80.0 - 100.0 fL [facility] Monocytes (Bld) [#/Vol] 0.87 10*3/uL High <0.87 k/uL [facility] Monocytes/100 WBC (Bld) 19.0 % [facility] Neutrophils (Bld) [#/Vol] 2.92 10*3/uL 1.45 - 7.50 k/uL [facility] Neutrophils/100 WBC (Bld) 63.8 % [facility] Nucleated RBC (Bld) [#/Vol] <0.01 k/uL [facility] Nucleated RBC/100 WBC (Bld) [Ratio] 0.0 /100 WBC [facility] Platelet mean volume (Bld) [Entitic vol] 10.2 fL 9.0 - 12.7 fL [facility] Platelets (Bld) [#/Vol] 247 10*3/uL 150 - 400 k/uL [facility] RBC (Bld) [#/Vol] 3.57 10*6/uL Low 4.20 - 6.00 m/uL [facility] WBC (Bld) [#/Vol] 4.58 10*3/uL 3.70 - 11.00 k/u L [facility] Comprehensive metabolic 2000 panelon 10-31-2022 Albumin [Mass/Vol] 4.1 g/dL 3.9 - 4.9 g/dL Cl [facility] ALP [Catalytic activity/Vol] 54 U/L 38 - 113 U/L [facility] ALT [Catalytic activity/Vol] 17 U/L 10 - 54 U/L [facility] Anion gap [Moles/Vol] 8 mmol/L Low 9 - 18 mmol/L [facility] AST [Catalytic activity/Vol] 21 U/L 14 - 40 U/L [facility] Bilirubin [Mass/Vol] 0.7 mg/dL 0.2 - 1.3 mg/dL [facility] Calcium [Mass/Vol] 9.4 mg/dL 8.5 - 10.2 mg/dL [facility] Chloride [Moles/Vol] 100 mmol/L 97 - 105 mmol/L [facility] CO2 [Moles/Vol] 25 mmol/L 22 - 30 mmol/L [facility] Creatinine [Mass/Vol] 1.08 mg/dL 0.73 - 1.22 mg/dL [facility] Estimated Glomerular Filtration Rate 76 mL/min/1.73m >=60 mL/min/1.73m [facility] Glucose [Mass/Vol] 97 mg/dL 74 - 99 mg/dL [facility] Potassium [Moles/Vol] 3.7 mmol/L 3.7 - 5.1 mmol/L [facility] Protein [Mass/Vol] 7.1 g/dL 6.3 - 8.0 g/dL Cl [facility] Sodium [Moles/Vol] 133 mmol/L Low 136 - 144 mmol/L [facility] Urea nitrogen [Mass/Vol] 20 mg/dL 9 - 24 mg/dL [facility] Orders Onlyon 10-23-2022 Orders Only [id number] Cristla Gu 1955 M Date Provider Department Center 10/23/2022 [facility] No family history on file Normal [facility] CBC W Auto Differential pane l (Bld)on 10-21-2022 Basophils (Bld) [#/Vol] 0.03 10*3/uL <0.11 k/uL [facility] Basophils/100 WBC (Bld) 0.5 % [facility] Differential cell count method Nom (Bld) Auto [facility] Eosinophils (Bld) [#/Vol] 0.19 10*3/uL <0.46 k/uL [facility] Eosinophils/100 WBC (Bld) 2.9 % [facility] Erythrocyte distribution width (RBC) [Ratio] 15.0 % 11.5 - 15.0 % [facility] Hematocrit (Bld) [Volume fraction] 39.7 % 39.0 - 51.0 % [facility] Hemoglobin (Bld) [Mass/Vol] 13.3 g/dL 13.0 - 17.0 g/dL [facility] Immature granulocytes (Bld) [#/Vol] 0.05 10*3/uL <0.10 k/uL [facility] Immature granulocytes/100 WBC (Bld) 0.8 % [facility] Lymphocytes (Bld) [#/Vol] 0.95 10*3/uL Low 1.00 - 4.00 k/uL [facility] Lymphocytes/100 WBC (Bld) 14.6 % [facility] MCH (RBC) [Entitic mass] 30.6 pg 26.0 - 34.0 pg [facility] MCHC (RBC) [Mass/Vol] 33.5 g/dL 30.5 - 36.0 g/dL [facility] MCV (RBC) [Entitic vol] 91.3 fL 80.0 - 100.0 fL [facility] Monocytes (Bld) [#/Vol] 0.62 10*3/uL <0.87 k/uL [facility] Monocytes/100 WBC (Bld) 9.5 % [facility] Neutrophils (Bld) [#/Vol] 4.66 10*3/uL 1.45 - 7.50 k/uL [facility] Neutrophils/100 WBC (Bld) 71.7 % [facility] Nucleated RBC (Bld) [#/Vol] <0.01 k/uL [facility] Nucleated RBC/100 WBC (Bld) [Ratio] 0.0 /100 WBC [facility] Platelet mean volume (Bld) [Entitic vol] 10.1 fL 9.0 - 12.7 fL [facility] Platelets (Bld) [#/Vol] 237 10*3/uL 150 - 400 k/uL [facility] RBC (Bld) [#/Vol] 4.35 10*6/uL 4.20 - 6.00 m/uL [facility] WBC (Bld) [#/Vol] 6.50 10*3/uL 3.70 - 11.00 k/u L [facility] Comprehensive metabolic 2000 panelon 10-21-2022 Albumin [Mass/Vol] 4.4 g/dL 3.9 - 4.9 g/dL [facility] ALP [Catalytic activity/Vol] 55 U/L 38 - 113 U/L [facility] ALT [Catalytic activity/Vol] 22 U/L 10 - 54 U/L [facility] Anion gap [Moles/Vol] 10 mmol/L 9 - 18 mmol/L [facility] AST [Catalytic activity/Vol] 20 U/L 14 - 40 U/L [facility] Bilirubin [Mass/Vol] 0.7 mg/dL 0.2 - 1.3 mg/dL [facility] Calcium [Mass/Vol] 10.2 mg/dL 8.5 - 10.2 mg/dL [facility] Chloride [Moles/Vol] 98 mmol/L 97 - 105 mmol/L [facility] CO2 [Moles/Vol] 27 mmol/L 22 - 30 mmol/L [facility] Creatinine [Mass/Vol] 1.04 mg/dL 0.73 - 1.22 mg/dL [facility] Estimated Glomerular Filtration Rate 80 mL/min/1.73m >=60 mL/min/1.73m [facility] Glucose [Mass/Vol] 145 mg/dL High 74 - 99 mg/dL [facility] Potassium [Moles/Vol] 4.2 mmol/L 3.7 - 5.1 mmol/L [facility] Protein [Mass/Vol] 7.8 g/dL 6.3 - 8.0 g/dL Cl [facility] Sodium [Moles/Vol] 135 mmol/L Low 136 - 144 mmol/L [facility] Urea nitrogen [Mass/Vol] 21 mg/dL 9 - 24 mg/dL [facility] LD LACTATE DEHYDROon 023 LDH [Catalytic activity/Vol] 183 U/L 135 - 225 U/L [facility] XR CHEST 1 Von 10-10-2022 [...] differentiate infiltrate from a mass. Normal [facility] XR SHOULDER LT 2V or >on [...] LOVE ALBERTS Date: 2022-10-10 11:46 Normal [facility] LIPID PROFILEon 09-19-2022 CHOL-HDL RATIO NORM SEE BELOW Normal [facility] Comment on above: Result Comment: 3.3 - 4.4 LOW RISK 4.4 - 7.1 AVERAGE RISK 7.1 - 11.0 MODERATE RISK >11.0 HIGH RISK Performed By: #### L IPID #### [facility] [address] [place] [address] Dr. Usama Hobbs Cholesterol [Mass/Vol] 104 mg/dL Normal <=200 [facility] Comment on above: Performed By: #### L IPID #### [facility] [address] [address] [address] Usama Hobbs Cholesterol in HDL [Mass/Vol] 36 mg/dL Critically low 40-60 [facility] Comment on above: Performed By: #### L IPID #### [facility] [address] [address] [address] Usama Hobbs Cholesterol in LDL [Mass/Vol] 59.6 mg/dL Normal [facility] Comment on above: Performed By: #### L IPID #### [facility] [address] [address] [address] Usama Hobbs Cholesterol.total/Ch olesterol in HDL [Mass ratio] 2.9 {ratio} Normal [facility] Comment on above: Performed By: #### L IPID #### [facility] [address] [address] [address] Usama Hobbs HDL NORMAL > or = 60 mg/dl - LOW CARDIOVASCULAR RISK <40 mg/dl - HIGH CARDIOVASCULAR RISK Normal [facility] Comment on above: Performed By: #### L IPID #### [facility] [address] [place] [address] Dr. Usama Hobbs LDL CALC NORMAL SEE BELOW Normal [facility] Comment on above: Result Comment: <100 mg/dl OPTIMAL 100 - 129 mg/dl NEAR OR ABOVE OPTIMAL 130 - 159 mg/dl BORDERLINE HIGH 160 - 189 mg/dl HIGH >190 mg/dl VERY HIGH Performed By: #### L IPID #### [facility] [address] [address] [address] Usama Hobbs Triglyceride [Mass/Vol] 42 mg/dL Normal <=150 [facility] Comment on above: Performed By: #### L IPID #### [facility] [address] [address] [address] Usama Hobbs VLDL CALC 8.4 mg/dL Normal [facility] Comment on above: Performed By: #### L IPID #### [facility] [address] [address] [address] Usama Hobbs Office Visiton 09-18-2022 Follow-up visit [id number] Cristal Gu Sr. 1955 M Date Provider Department Center 09/18[facility]20[facility] No family history on file Level of Service:26301 [place] OFFICE/OUTPATIENT ESTABLISHED MOD MDM 30-39 MIN () Reason for Visit and Comments: Coronary Artery Disease [187] Peripheral Vascular Disease [458] Carotid Stenosis [Other] Hypertension [969904] Normal [facility] CBC W Auto Differential pane l (Bld)on 06-25-2022 Basophils (Bld) [#/Vol] <0.11 k/uL [facility] Basophils/100 WBC (Bld) 0.4 % [facility] Differential cell count method Nom (Bld) Auto [facility] Eosinophils (Bld) [#/Vol] 0.03 10*3/uL <0.46 k/uL [facility] Eosinophils/100 WBC (Bld) 0.6 % [facility] Erythrocyte distribution width (RBC) [Ratio] 14.1 % 11.5 - 15.0 % [facility] Hematocrit (Bld) [Volume fraction] 34.9 % Low 39.0 - 51.0 % [facility] Hemoglobin (Bld) [Mass/Vol] 12.5 g/dL Low 13.0 - 17.0 g/dL [facility] Immature granulocytes (Bld) [#/Vol] 0.03 10*3/uL <0.10 k/uL [facility] Immature granulocytes/100 WBC (Bld) 0.6 % [facility] Lymphocytes (Bld) [#/Vol] 0.75 10*3/uL Low 1.00 - 4.00 k/uL [facility] Lymphocytes/100 WBC (Bld) 14.0 % [facility] MCH (RBC) [Entitic mass] 32.9 pg 26.0 - 34.0 pg [facility] MCHC (RBC) [Mass/Vol] 35.8 g/dL 30.5 - 36.0 g/dL [facility] MCV (RBC) [Entitic vol] 91.8 fL 80.0 - 100.0 fL [facility] Monocytes (Bld) [#/Vol] 0.62 10*3/uL <0.87 k/uL [facility] Monocytes/100 WBC (Bld) 11.6 % [facility] Neutrophils (Bld) [#/Vol] 3.89 10*3/uL 1.45 - 7.50 k/uL [facility] Neutrophils/100 WBC (Bld) 72.8 % [facility] Nucleated RBC (Bld) [#/Vol] <0.01 k/uL [facility] Nucleated RBC/100 WBC (Bld) [Ratio] 0.0 /100 WBC [facility] Platelet mean volume (Bld) [Entitic vol] 9.8 fL 9.0 - 12.7 fL [facility] Platelets (Bld) [#/Vol] 208 10*3/uL 150 - 400 k/uL [facility] RBC (Bld) [#/Vol] 3.80 10*6/uL Low 4.20 - 6.00 m/uL [facility] WBC (Bld) [#/Vol] 5.34 10*3/uL 3.70 - 11.00 k/u L [facility] Comprehensive metabolic 2000 panelon 06-25-2022 Albumin [Mass/Vol] 4.4 g/dL 3.9 - 4.9 g/dL Cl [facility] ALP [Catalytic activity/Vol] 72 U/L 38 - 113 U/L [facility] ALT [Catalytic activity/Vol] 27 U/L 10 - 54 U/L [facility] Anion gap [Moles/Vol] 12 mmol/L 9 - 18 mmol/L [facility] AST [Catalytic activity/Vol] 32 U/L 14 - 40 U/L [facility] Bilirubin [Mass/Vol] 0.7 mg/dL 0.2 - 1.3 mg/dL [facility] Calcium [Mass/Vol] 9.6 mg/dL 8.5 - 10.2 mg/dL [facility] Chloride [Moles/Vol] 97 mmol/L 97 - 105 mmol/L [facility] CO2 [Moles/Vol] 26 mmol/L 22 - 30 mmol/L [facility] Creatinine [Mass/Vol] 0.75 mg/dL 0.73 - 1.22 mg/dL [facility] Estimated Glomerular Filtration Rate 100 mL/min/1.73m >=60 mL/min/1.73m [facility] Glucose [Mass/Vol] 111 mg/dL High 74 - 99 mg/dL [facility] Potassium [Moles/Vol] 3.8 mmol/L 3.7 - 5.1 mmol/L [facility] Protein [Mass/Vol] 7.2 g/dL 6.3 - 8.0 g/dL [facility] Sodium [Moles/Vol] 135 mmol/L Low 136 - 144 mmol/L [facility] Urea nitrogen [Mass/Vol] 11 mg/dL 9 - 24 mg/dL [facility] CT CHEST W IVCONon 11-25-202 2 [facility] XR CHEST 2V FRONTAL/LATon [facility] MRI LSPINE WO W CONon [...] by: BRANDON HENRY Date: 2022-05-23 19:51 Normal [facility] XR LSPINE MIN 4 VIEWSon 04-20 [...] by: TRUDY GUTIERREZ Date: 2022-05-01 17:27 Normal [facility] BONE SC WH BODYon OR BONE [facility] BODY EXAMINATION: OR BONE [facility] BODY HISTORY: Primary malignant neoplasm of bronchus [...] by: BRANDON HENRY Date: 2022-04-12 21:44 Normal [facility] US CAROTID ART BILon US CAROTID [...] BRANDON HENRY Date: 2022-03-22 17:14 Normal [facility] PRBC LEUKOREDUCEDon 02-11-20 ABO and Rh group Nom (Bld) Cross Match Result Compatible Unit Blood Type A Pos Unit Number [id number] Status Information Transfused Product ID Red Blood Cells Product Code [id number] Cross Match Result Compatible Unit Blood Type A Pos Unit Number [id number] Status Information Transfused Product ID Red Blood Cells Product Code [id number] Normal [facility] Comment on above: Performed By: #### P SAD #### [facility] [address] [place] [address] Dr. Usama Hobbs ABO RH RETYPEon 02-08-2022 ABO and Rh group Nom (Bld) DONE Normal [facility] Comment on above: Performed By: #### R ETYPE #### [facility] [address] [place] [address] Dr. Usama Hobbs LD LACTATE DEHYDROon 022 LDH [Catalytic activity/Vol] 186 U/L 135 - 225 U/L [facility] TYPE AND SCREENon 02-08-2022 TYPE AND SCREEN Negative Normal [facility] Comment on above: Performed By: #### P SAD #### [facility] [address] [place] [address] Dr. Usama Hobbs HEMOGRAM AND PLATELon 2021 Hematocrit (Bld) [Volume fraction] 21.0 % Critically low 42.0-54.0 [facility] Comment on above: Result Comment: dr haider marcos transfusionT&S ordered Performed By: #### B DIRECTOR STAFFING, CMP #### [facility] [address] [place] [address] Dr. Usama Hobbs Hemoglobin (Bld) [Mass/Vol] 7.3 g/dL Critically low 14.0-18.0 [facility] Comment on above: Performed By: #### B DIRECTOR STAFFING, CMP #### [facility] [address] [place] [address] Dr. Usama Hobbs MCH (RBC) [Entitic mass] 31.7 pg Normal 25.9-34.0 [facility] Comment on above: Performed By: #### B DIRECTOR STAFFING, CMP #### [facility] [address] [place] [address] Dr. Usama Hobbs MCHC (RBC) [Mass/Vol] 34.8 g/dL Normal 29.9-35.2 [facility] Comment on above: Performed By: #### B DIRECTOR STAFFING, CMP #### [facility] [address] [address] [address] Usama Hobbs MCV (RBC) [Entitic vol] 91.3 fL Normal 80.0-94.0 [facility] Comment on above: Performed By: #### B DIRECTOR STAFFING, CMP #### [facility] [address] [place] [address] Dr. Usama Hobbs PLT 89 103/ul Critically low 150-450 [facility] Comment on above: Performed By: #### B DIRECTOR STAFFING, CMP #### [facility] [address] [place] [address] Dr. Usama Hobbs RBC 2.30 106/ul Critically low 4.70-6.10 [facility] Comment on above: Performed By: #### B DIRECTOR STAFFING, CMP #### [facility] [address] [place] [address] Dr. Usama Hobbs WBC 2.0 103/ul Critically low 4.0-11.0 [facility] Comment on above: Performed By: #### B DIRECTOR STAFFING, CMP #### [facility] [address] [place] [address] Dr. Usama Hobbs RETIC COUNTon 02-07-2022 Reticulocytes (Bld) [#/Vol] 0.84791 10*3/uL 0.018 - 0.100 M/uL [facility] Reticulocytes (Bld) [#/Vol]o n 02-07-2022 Reticulocytes/100 RBC (Bld) 2.3 % High 0.4 - 2.0 % [facility] XR CHEST 2V FRONTAL/LATon [facility] BNPon 12-07-2021 Natriuretic peptide B (Bld) [Mass/Vol] 140.0 pg/mL Normal <=900.0 [facility] Comment on above: Performed By: #### P SAD #### [facility] [address] [place] [address] Dr. Usama Hobbs CBC AUTO DIFFon 12-07-2021 BASO # 0.0 103/ul Normal 0.0-0.1 [facility] Comment on above: Performed By: #### B DIRECTOR STAFFING, CMP #### [facility] [address] [place] [address] Dr. Usama Hobbs Basophils/100 WBC (Bld) 0.2 % Normal 0.2-2.0 [facility] Comment on above: Performed By: #### B DIRECTOR STAFFING, CMP #### [facility] [address] [place] [address] Dr. Usama Hobbs EO # 0.1 103/ul Normal 0.0-0.7 [facility] Comment on above: Performed By: #### B DIRECTOR STAFFING, CMP #### [facility] [address] [place] [address] Dr. Usama Hobbs Eosinophils/100 WBC (Bld) 2.0 % Normal 0.9-7.0 [facility] Comment on above: Performed By: #### B DIRECTOR STAFFING, CMP #### [facility] [address] [place] [address] Dr. Usama Hobbs Erythrocyte distribution width (RBC) [Ratio] 12.9 % Normal 11.0-15.0 [facility] Comment on above: Performed By: #### B DIRECTOR STAFFING, CMP #### [facility] [address] [place] [address] Dr. Usama Hobbs Hematocrit (Bld) [Volume fraction] 32.6 % Critically low 42.0-54.0 [facility] Comment on above: Performed By: #### B DIRECTOR STAFFING, CMP #### [facility] [address] [place] [address] Dr. Usama Hobbs Hemoglobin (Bld) [Mass/Vol] 11.0 g/dL Critically low 14.0-18.0 [facility] Comment on above: Performed By: #### B DIRECTOR STAFFING, CMP #### [facility] [address] [place] [address] Dr. Usama Hobbs IG # 0.02 10e3/ul Normal 0.00-0.03 [facility] Comment on above: Performed By: #### B DIRECTOR STAFFING, CMP #### [facility] [address] [place] [address] Dr. Usama Hobbs IG % 0.4 % Normal 0.0-0.5 [facility] Comment on above: Performed By: #### B DIRECTOR STAFFING, CMP #### [facility] [address] [place] [address] Dr. Usama Hobbs LYMPH # 0.6 103/ul Critically low 1.2-3.8 [facility] Comment on above: Performed By: #### B DIRECTOR STAFFING, CMP #### [facility] [address] [place] [address] Dr. Usama Hobbs Lymphocytes/100 WBC (Bld) 12.9 % Critically low 20.5-60.0 [facility] Comment on above: Performed By: #### B DIRECTOR STAFFING, CMP #### [facility] [address] [place] [address] Dr. Usama Hobbs MANUAL DIFF REQ NO Normal [facility] Comment on above: Performed By: #### B DIRECTOR STAFFING, CMP #### [facility] [address] [place] [address] Dr. Usama Hobbs MCH (RBC) [Entitic mass] 30.1 pg Normal 25.9-34.0 [facility] Comment on above: Performed By: #### B DIRECTOR STAFFING, CMP #### [facility] [address] [place] [address] Dr. Usama Hobbs MCHC (RBC) [Mass/Vol] 33.7 g/dL Normal 29.9-35.2 [facility] Comment on above: Performed By: #### B DIRECTOR STAFFING, CMP #### [facility] [address] [place] [address] Dr. Usama Hobbs MCV (RBC) [Entitic vol] 89.1 fL Normal 80.0-94.0 [facility] Comment on above: Performed By: #### B DIRECTOR STAFFING, CMP #### [facility] [address] [place] [address] Dr. Usama Hobbs MONO # 0.3 103/ul Normal 0.3-0.8 [facility] Comment on above: Performed By: #### B DIRECTOR STAFFING, CMP #### [facility] [address] [place] [address] Dr. Usama Hobbs Monocytes/100 WBC (Bld) 5.1 % Normal 1.7-12.0 [facility] Comment on above: Performed By: #### B DIRECTOR STAFFING, CMP #### [facility] [address] [place] [address] Dr. Usama Hobbs NEUT # 3.9 103/ul Normal 1.4-6.5 [facility] Comment on above: Performed By: #### B DIRECTOR STAFFING, CMP #### [facility] [address] [place] [address] Dr. Usama Hobbs Neutrophils/100 WBC (Bld) 79.4 % Critically high 43.0-75.0 [facility] Comment on above: Performed By: #### B DIRECTOR STAFFING, CMP #### [facility] [address] [place] [address] Dr. Usama Hobbs Platelet mean volume (Bld) [Entitic vol] 10.9 fL Normal 9.5-13.5 [facility] Comment on above: Performed By: #### B DIRECTOR STAFFING, CMP #### [facility] [address] [place] [address] Dr. Usama Hobbs PLT 182 103/ul Normal 150-450 [facility] Comment on above: Performed By: #### B DIRECTOR STAFFING, CMP #### [facility] [address] [place] [address] Dr. Usama Hobbs RBC 3.66 106/ul Critically low 4.70-6.10 [facility] Comment on above: Performed By: #### B DIRECTOR STAFFING, CMP #### [facility] [address] [place] [address] Dr. Usama Hobbs WBC 4.9 103/ul Normal 4.0-11.0 [facility] Comment on above: Performed By: #### B DIRECTOR STAFFING, CMP #### [facility] [address] [place] [address] Dr. Usama Hobbs TSHon 12-07-2021 TSH 1.474 uIU/mL Normal 0.358-3.740 [facility] Comment on above: Performed By: #### P SAD #### [facility] [address] [place] [address] Dr. Usama Hobbs TSH RANGE SEE BELOW Normal [facility] Comment on above: Result Comment: <0.3 4 UIU/ml HYPERTHYROID 0.34-5.60 UIU/ml EUTHYROID >5.60 UIU/ml HYPOTHYROID Performed By: #### P SAD #### [facility] [id number] Usama Hobbs URIC ACID BLOODon 11-26-2021 Urate [Mass/Vol] 7.0 mg/dL 4.0 - 8.1 mg/dL [facility] Basic metabolic 2000 panelon 11-21-2021 Anion gap [Moles/Vol] 12 mmol/L 9 - 18 mmol/L [facility] Calcium [Mass/Vol] 9.2 mg/dL 8.5 - 10.2 mg/dL [facility] Chloride [Moles/Vol] 102 mmol/L 97 - 105 mmol/L [facility] CO2 [Moles/Vol] 25 mmol/L 22 - 30 mmol/L [facility] Creatinine [Mass/Vol] 1.86 mg/dL High 0.73 - 1.22 mg/dL [facility] Estimated Glomerular Filtration Rate 40 mL/min/1.73m Low >=60 mL/min/1.73m [facility] Glucose [Mass/Vol] 87 mg/dL 74 - 99 mg/dL [facility] Potassium [Moles/Vol] 3.7 mmol/L 3.7 - 5.1 mmol/L [facility] Sodium [Moles/Vol] 139 mmol/L 136 - 144 mmol/L [facility] Urea nitrogen [Mass/Vol] 29 mg/dL High 9 - 24 mg/dL [facility] Basic metabolic 1999 panelon 11-19-2021 Anion gap [Moles/Vol] 12 mmol/L 9 - 18 mmol/L [facility] Calcium [Mass/Vol] 9.2 mg/dL 8.5 - 10.2 mg/dL [facility] Chloride [Moles/Vol] 104 mmol/L 97 - 105 mmol/L [facility] CO2 [Moles/Vol] 24 mmol/L 22 - 30 mmol/L [facility] Creatinine [Mass/Vol] 2.09 mg/dL High 0.73 - 1.22 mg/dL [facility] Estimated Glomerular Filtration Rate 35 mL/min/1.73m Low >=60 mL/min/1.73m [facility] Glucose [Mass/Vol] 79 mg/dL 74 - 99 mg/dL [facility] Potassium [Moles/Vol] 3.6 mmol/L Low 3.7 - 5.1 mmol/L [facility] Sodium [Moles/Vol] 140 mmol/L 136 - 144 mmol/L [facility] Urea nitrogen [Mass/Vol] 27 mg/dL High 9 - 24 mg/dL [facility] BNPon 11-18-2021 Natriuretic peptide B (Bld) [Mass/Vol] 2644.0 pg/mL Critically high <=900.0 [facility] Comment on above: Performed By: #### B DIRECTOR STAFFING, CMP #### [facility] [address] [place] [address] Dr. Usama Hobbs CBC W MANUAL DIFFon 11-19-19 22 ATYPICAL LYMPH # Normal [facility] Comment on above: Performed By: #### C LUIS #### [facility] [address] [place] [address] Dr. Usama Hobbs ATYPICAL LYMPH % Normal [facility] Comment on above: Performed By: #### C LUIS #### [facility] [address] [place] [address] Dr. Usama Hobbs BAND # 0.0 103/ul Normal 0.0-0.3 [facility] Comment on above: Performed By: #### C LUIS #### [facility] [address] [place] [address] Dr. Usama Hobbs BAND % 2 % Normal 0-5 [facility] Comment on above: Performed By: #### C BCMAN #### [facility] [address] [place] [address] Dr. Usama Hobbs BASOM # 0.00 103/ul Normal 0.00-0.10 [facility] Comment on above: Performed By: #### C YEMAN #### [facility] [address] [place] [address] Dr. Usama Hobbs BASOM % 0.0 % Critically low 0.2-2.0 [facility] Comment on above: Performed By: #### C BCMAN #### [facility] [address] [place] [address] Dr. Usama Hobbs BLAST # Normal [facility] Comment on above: Performed By: #### C BCMAN #### [facility] [address] [place] [address] Dr. Usama Hobbs BLAST % Normal [facility] Comment on above: Performed By: #### C BCANATOLY #### [facility] [address] [place] [address] Dr. Usama Hobbs CORRECTED WBC Normal 4.0-11.0 [facility] Comment on above: Performed By: #### C BCANATOLY #### [facility] [address] [place] [address] Dr. Usama Hobbs EOS # 0.10 103/ul Normal 0.00-0.70 [facility] Comment on above: Performed By: #### C LUSI #### [facility] [address] [place] [address] Dr. Usama Hobbs EOS% 5.0 % Normal 0.9-7.0 [facility] Comment on above: Performed By: #### C BCANATOLY #### [facility] [address] [place] [address] Dr. Usama Hobbs HCT 28.8 % Critically low 42.0-54.0 [facility] Comment on above: Performed By: #### C BCANATOLY #### [facility] [address] [place] [address] Dr. Usama Hobbs HGB 9.4 g/dl Critically low 14.0-18.0 [facility] Comment on above: Performed By: #### C BCANATOLY #### [facility] [address] [place] [address] Dr. Usama Hobbs LYMPHM # 0.71 103/ul Critically low 1.20-3.80 [facility] Comment on above: Performed By: #### C BCMAN #### [facility] [address] [place] [address] Dr. Usama Hobbs LYMPHM% 34.0 % Normal 20.5-60.0 [facility] Comment on above: Performed By: #### C BCMAN #### [facility] [address] [place] [address] Dr. Usama Hobbs MCH 30.0 pg Normal 25.9-34.0 [facility] Comment on above: Performed By: #### C LUIS #### [facility] [address] [place] [address] Dr. Usama Hobbs MCHC 32.6 g/dl Normal 29.9-35.2 [facility] Comment on above: Performed By: #### C LUIS #### [facility] [address] [place] [address] Dr. Usama Hobbs MCV 92.0 fL Normal 80.0-94.0 [facility] Comment on above: Performed By: #### C LUIS #### [facility] [address] [place] [address] Dr. Usama Hobbs METAMYELOCYTE # Normal [facility] Comment on above: Performed By: #### Kyara SMITH #### [facility] [address] [place] [address] Dr. Usama Hobbs METAMYELOCYTE % Normal [facility] Comment on above: Performed By: #### Kyara SMITH #### [facility] [address] [place] [address] Dr. Usama Hobbs MONOM# 0.10 103/ul Critically low 0.30-0.80 [facility] Comment on above: Performed By: #### Kyara SMITH #### [facility] [address] [place] [address] Dr. Usama Hobbs MONOM% 5.0 % Normal 1.7-12.0 [facility] Comment on above: Performed By: #### Kyara SMITH #### [facility] [address] [place] [address] Dr. Usama Hobbs MPV 10.7 fL Normal 9.5-13.5 [facility] Comment on above: Performed By: #### C LUIS #### [facility] [address] [place] [address] Dr. Usama Hobbs MYELOCYTE # Normal [facility] Comment on above: Performed By: #### C LUIS #### [facility] [address] [address] [address] Usama Hobbs MYELOCYTE % Normal [facility] Comment on above: Performed By: #### C BCMAN #### [facility] [address] [place] [address] Dr. Usama Hobbs NRBC Normal [facility] Comment on above: Performed By: #### C BCANATOLY #### [facility] [address] [address] [address] Usama Hobbs PLT 149 103/ul Critically low 150-450 [facility] Comment on above: Performed By: #### C BCANATOLY #### [facility] [address] [place] [address] Dr. Usama Hobbs RBC 3.13 106/ul Critically low 4.70-6.10 [facility] Comment on above: Performed By: #### C LUIS #### [facility] [address] [place] [address] Dr. Usama Hobbs RDW 12.3 % Normal 11.0-15.0 [facility] Comment on above: Performed By: #### C BCANATOLY #### [facility] [address] [place] [address] Dr. Usama Hobbs SEG # 1.13 103/ul Critically low 1.40-6.50 [facility] Comment on above: Performed By: #### C BCANATOLY #### [facility] [address] [place] [address] Dr. Usama Hobbs SEG % 54.0 % Normal 43.0-75.0 [facility] Comment on above: Performed By: #### C BCANATOLY #### [facility] [address] [place] [address] Dr. Usama Hobbs WBC 2.1 103/ul Critically low 4.0-11.0 [facility] Comment on above: Performed By: #### C BCMAN #### [facility] [address] [place] [address] Dr. Usama Hobbs CULTURE SPUTUMon 11-18-2021 CULTURE SPUTUM Culture Observations: Normal respiratory callie also seen Isolate 1 Adwoa Albicans Growth of Normal [facility] Comment on above: Performed By: #### P SAD #### [facility] [address] [address] [address] Usama Hobbs PROF 14(COMP METB)on 022 Albumin [Mass/Vol] 2.8 g/dL Critically low 3.4-5.0 [facility] Comment on above: Performed By: #### B DIRECTOR STAFFING, CMP #### [facility] [address] [place] [address] Dr. Usama Hobbs Albumin/Globulin [Mass ratio] 0.8 {ratio} Normal [facility] Comment on above: Performed By: #### B DIRECTOR STAFFING, CMP #### [facility] [address] [place] [address] Dr. Usama Hobbs ALP [Catalytic activity/Vol] 56 U/L Normal 46-116 [facility] Comment on above: Performed By: #### B DIRECTOR STAFFING, CMP #### [facility] [address] [place] [address] Dr. Usama Hobbs ALT [Catalytic activity/Vol] 22 U/L Normal 16-63 [facility] Comment on above: Performed By: #### B DIRECTOR STAFFING, CMP #### [facility] [address] [place] [address] Dr. Usama Hobbs Anion gap [Moles/Vol] 14.5 mmol/L Normal [facility] Comment on above: Performed By: #### B DIRECTOR STAFFING, CMP #### [facility] [address] [place] [address] Dr. Usama Hobbs AST [Catalytic activity/Vol] 17 U/L Normal 15-37 [facility] Comment on above: Performed By: #### B DIRECTOR STAFFING, CMP #### [facility] [address] [place] [address] Dr. Usama Hobbs Bilirubin [Mass/Vol] 0.4 mg/dL Normal 0.2-1.0 [facility] Comment on above: Performed By: #### B DIRECTOR STAFFING, CMP #### [facility] [address] [place] [address] Dr. Usama Hobbs Calcium [Mass/Vol] 7.8 mg/dL Critically low 8.5-10.1 [facility] Comment on above: Performed By: #### B DIRECTOR STAFFING, CMP #### [facility] [address] [place] [address] Dr. Usama Hobbs Chloride [Moles/Vol] 104 mmol/L Normal 98-107 [facility] Comment on above: Performed By: #### B DIRECTOR STAFFING, CMP #### [facility] [address] [place] [address] Dr. Usama Hobbs CO2 [Moles/Vol] 25.0 mmol/L Normal 21.0-32.0 [facility] Comment on above: Performed By: #### B DIRECTOR STAFFING, CMP #### [facility] [address] [place] [address] Dr. Usama Hobbs Creatinine [Mass/Vol] 1.97 mg/dL Critically high 0.70-1.30 [facility] Comment on above: Performed By: #### B DIRECTOR STAFFING, CMP #### [facility] [address] [place] [address] Dr. Usama Hobbs EGFR-AF DUTCH 42 mL/min/1.73m2 Critically low >=60 [facility] Comment on above: Performed By: #### B DIRECTOR STAFFING, CMP #### [facility] [address] [place] [address] Dr. Usama Hobbs EGFR-NON AF DUTCH 34 mL/min/1.73m2 Critically low >=60 [facility] Comment on above: Performed By: #### B DIRECTOR STAFFING, CMP #### [facility] [address] [place] [address] Dr. Usama Hobbs Globulin (S) [Mass/Vol] 3.3 g/dL Normal [facility] Comment on above: Performed By: #### B DIRECTOR STAFFING, CMP #### [facility] [address] [place] [address] Dr. Usama Hobbs Glucose [Mass/Vol] 91 mg/dL Normal 74-106 [facility] Comment on above: Performed By: #### B DIRECTOR STAFFING, CMP #### [facility] [address] [place] [address] Dr. Usama Hobbs Potassium [Moles/Vol] 3.5 mmol/L Normal 3.5-5.1 [facility] Comment on above: Performed By: #### B DIRECTOR STAFFING, CMP #### [facility] [address] [place] [address] Dr. Usama Hobbs Protein [Mass/Vol] 6.1 g/dL Normal 6.1-8.2 [facility] Comment on above: Performed By: #### B DIRECTOR STAFFING, CMP #### [facility] [address] [place] [address] Dr. Usama Hobbs Sodium [Moles/Vol] 140 mmol/L Normal 136-145 [facility] Comment on above: Performed By: #### B DIRECTOR STAFFING, CMP #### [facility] [address] [place] [address] Dr. Usama Hobbs Urea nitrogen [Mass/Vol] 18.0 mg/dL Normal 7.0-18.0 [facility] Comment on above: Performed By: #### B DIRECTOR STAFFING, CMP #### [facility] [address] [place] [address] Dr. Usama Hobbs Urea nitrogen/Creatinine [Mass ratio] 9.1 mg/mg Normal [facility] Comment on above: Performed By: #### B DIRECTOR STAFFING, CMP #### [facility] [address] [place] [address] Dr. Usama Hobbs T3, TOTAL (TRIIODOTHYRONINE) on 11-18-2021 T3, TOTAL 101 ng/dL Normal 71-180 [facility] Comment on above: Performed By: #### T 3TOTAL #### [facility] [address] [place] [address] Dr. Usama Hobbs BNPon 11-17-2021 Natriuretic peptide B (Bld) [Mass/Vol] 6047.0 pg/mL Critically high <=900.0 [facility] Comment on above: Performed By: #### C MP, BNP #### [facility] [address] [place] [address] Dr. Usama Hobbs CBC AUTO DIFFon 11-17-2021 BASO # 0.0 103/ul Normal 0.0-0.1 [facility] Comment on above: Performed By: #### C BC #### [facility] [address] [place] [address] Dr. Usama Hobbs Basophils/100 WBC (Bld) 0.4 % Normal 0.2-2.0 [facility] Comment on above: Performed By: #### C BC #### [facility] [address] [place] [address] Dr. Usama Hobbs EO # 0.1 103/ul Normal 0.0-0.7 [facility] Comment on above: Performed By: #### C BC #### [facility] [address] [place] [address] Dr. Usama Hobbs Eosinophils/100 WBC (Bld) 6.2 % Normal 0.9-7.0 [facility] Comment on above: Performed By: #### C BC #### [facility] [address] [place] [address] Dr. Usama Hobbs Erythrocyte distribution width (RBC) [Ratio] 12.3 % Normal 11.0-15.0 [facility] Comment on above: Performed By: #### C BC #### [facility] [address] [place] [address] Dr. Usama Hobbs Hematocrit (Bld) [Volume fraction] 31.8 % Critically low 42.0-54.0 [facility] Comment on above: Performed By: #### C BC #### [facility] [address] [place] [address] Dr. Usama Hobbs Hemoglobin (Bld) [Mass/Vol] 10.5 g/dL Critically low 14.0-18.0 [facility] Comment on above: Performed By: #### C BC #### [facility] [address] [place] [address] Dr. Usama Hobbs IG # 0.01 10e3/ul Normal 0.00-0.03 [facility] Comment on above: Performed By: #### C BC #### [facility] [address] [place] [address] Dr. Usama Hobbs IG % 0.4 % Normal 0.0-0.5 [facility] Comment on above: Performed By: #### C BC #### [facility] [address] [place] [address] Dr. Usama Hobbs LYMPH # 0.6 103/ul Critically low 1.2-3.8 [facility] Comment on above: Performed By: #### C BC #### [facility] [address] [address] [address] Usama Hobbs Lymphocytes/100 WBC (Bld) 27.4 % Normal 20.5-60.0 [facility] Comment on above: Performed By: #### C BC #### [facility] [address] [place] [address] Dr. Usama Hobbs MANUAL DIFF REQ NO Normal [facility] Comment on above: Performed By: #### C BC #### [facility] [address] [place] [address] Dr. Usama Hobbs MCH (RBC) [Entitic mass] 30.3 pg Normal 25.9-34.0 [facility] Comment on above: Performed By: #### C BC #### [facility] [address] [place] [address] Dr. Usama Hobbs MCHC (RBC) [Mass/Vol] 33.0 g/dL Normal 29.9-35.2 [facility] Comment on above: Performed By: #### C BC #### [facility] [address] [place] [address] Dr. Usama Hobbs MCV (RBC) [Entitic vol] 91.6 fL Normal 80.0-94.0 [facility] Comment on above: Performed By: #### C BC #### [facility] [address] [place] [address] Dr. Usama Hobbs MONO # 0.4 103/ul Normal 0.3-0.8 [facility] Comment on above: Performed By: #### C BC #### [facility] [address] [place] [address] Dr. Usama Hobbs Monocytes/100 WBC (Bld) 17.3 % Critically high 1.7-12.0 [facility] Comment on above: Performed By: #### C BC #### [facility] [address] [address] [address] Usama Hobbs NEUT # 1.1 103/ul Critically low 1.4-6.5 [facility] Comment on above: Performed By: #### C BC #### [facility] [address] [address] [address] Usama Hobbs Neutrophils/100 WBC (Bld) 48.3 % Normal 43.0-75.0 [facility] Comment on above: Performed By: #### C BC #### [facility] [address] [place] [address] Dr. Usama Hobbs Platelet mean volume (Bld) [Entitic vol] 10.9 fL Normal 9.5-13.5 [facility] Comment on above: Performed By: #### C BC #### [facility] [address] [place] [address] Dr. Usama Hobbs PLT 174 103/ul Normal 150-450 [facility] Comment on above: Performed By: #### C BC #### [facility] [address] [place] [address] Dr. Usama Hobbs RBC 3.47 106/ul Critically low 4.70-6.10 [facility] Comment on above: Performed By: #### C BC #### [facility] [address] [place] [address] Dr. Usama Hobbs WBC 2.3 103/ul Critically low 4.0-11.0 [facility] Comment on above: Performed By: #### C BC #### [facility] [address] [place] [address] Dr. Usama Hobbs PROF 14(COMP METB)on 11-17- 022 Albumin [Mass/Vol] 3.3 g/dL Critically low 3.4-5.0 [facility] Comment on above: Performed By: #### C MP, BNP #### [facility] [address] [place] [address] Dr. Usama Hobbs Albumin/Globulin [Mass ratio] 0.9 {ratio} Normal [facility] Comment on above: Performed By: #### C MP, BNP #### [facility] [address] [address] [address] Usama Hobbs ALP [Catalytic activity/Vol] 73 U/L Normal 46-116 [facility] Comment on above: Performed By: #### C MP, BNP #### [facility] [address] [address] [address] Usama Hobbs ALT [Catalytic activity/Vol] 31 U/L Normal 16-63 [facility] Comment on above: Performed By: #### C MP, BNP #### [facility] [address] [place] [address] Dr. Usama Hobbs Anion gap [Moles/Vol] 13.8 mmol/L Normal [facility] Comment on above: Performed By: #### C MP, BNP #### [facility] [address] [place] [address] Dr. Usama Hobbs AST [Catalytic activity/Vol] 22 U/L Normal 15-37 [facility] Comment on above: Performed By: #### C MP, BNP #### [facility] [address] [place] [address] Dr. Usama Hobbs Bilirubin [Mass/Vol] 0.6 mg/dL Normal 0.2-1.0 [facility] Comment on above: Performed By: #### C MP, BNP #### [facility] [address] [place] [address] Dr. Usama Hobbs Calcium [Mass/Vol] 8.3 mg/dL Critically low 8.5-10.1 [facility] Comment on above: Performed By: #### C MP, BNP #### [facility] [address] [place] [address] Dr. Usama Hobbs Chloride [Moles/Vol] 105 mmol/L Normal 98-107 [facility] Comment on above: Performed By: #### C MP, BNP #### [facility] [address] [place] [address] Dr. Usama Hobbs CO2 [Moles/Vol] 26.1 mmol/L Normal 21.0-32.0 [facility] Comment on above: Performed By: #### C MP, BNP #### [facility] [address] [address] [address] Usama Hobbs Creatinine [Mass/Vol] 2.05 mg/dL Critically high 0.70-1.30 [facility] Comment on above: Performed By: #### C MP, BNP #### [facility] [address] [address] [address] Usama Hobbs EGFR-AF DUTCH 40 mL/min/1.73m2 Critically low >=60 [facility] Comment on above: Performed By: #### C MP, BNP #### [facility] [address] [address] [address] Usama Hobbs EGFR-NON AF DUTCH 33 mL/min/1.73m2 Critically low >=60 [facility] Comment on above: Performed By: #### C MP, BNP #### [facility] [address] [address] [address] Usama Hobbs Globulin (S) [Mass/Vol] 3.7 g/dL Normal [facility] Comment on above: Performed By: #### C MP, BNP #### [facility] [address] [address] [address] Usama Hobbs Glucose [Mass/Vol] 86 mg/dL Normal 74-106 [facility] Comment on above: Performed By: #### C MP, BNP #### [facility] [address] [address] [address] Usama Hobbs Potassium [Moles/Vol] 3.9 mmol/L Normal 3.5-5.1 [facility] Comment on above: Performed By: #### C MP, BNP #### [facility] [address] [address] [address] Usama Hobbs Protein [Mass/Vol] 7.0 g/dL Normal 6.1-8.2 [facility] Comment on above: Performed By: #### C MP, BNP #### [facility] [address] [address] [address] Usama Hobbs Sodium [Moles/Vol] 141 mmol/L Normal 136-145 [facility] Comment on above: Performed By: #### C MP, BNP #### [facility] [address] [address] [address] Usama Hobbs Urea nitrogen [Mass/Vol] 21.0 mg/dL Critically high 7.0-18.0 [facility] Comment on above: Performed By: #### C MP, BNP #### [facility] [address] [address] [address] Usama Hobbs Urea nitrogen/Creatinine [Mass ratio] 10.2 mg/mg Normal [facility] Comment on above: Performed By: #### C MP, BNP #### [facility] [address] [address] [address] Usama Hobbs Basic metabolic 2000 panelon 11-16-2021 Anion gap [Moles/Vol] 16 mmol/L 9 - 18 mmol/L [facility] Calcium [Mass/Vol] 9.2 mg/dL 8.5 - 10.2 mg/dL [facility] Chloride [Moles/Vol] 102 mmol/L 97 - 105 mmol/L [facility] CO2 [Moles/Vol] 20 mmol/L Low 22 - 30 mmol/L [facility] Creatinine [Mass/Vol] 2.33 mg/dL High 0.73 - 1.22 mg/dL [facility] Estimated Glomerular Filtration Rate 30 mL/min/1.73m Low >=60 mL/min/1.73m [facility] Glucose [Mass/Vol] 78 mg/dL 74 - 99 mg/dL [facility] Potassium [Moles/Vol] 3.9 mmol/L 3.7 - 5.1 mmol/L [facility] Sodium [Moles/Vol] 138 mmol/L 136 - 144 mmol/L [facility] Urea nitrogen [Mass/Vol] 27 mg/dL High 9 - 24 mg/dL [facility] CBC W MANUAL DIFFon 11-17-19 22 ATYPICAL LYMPH # Normal [facility] Comment on above: Performed By: #### B DIRECTOR STAFFING, CMP #### [facility] [address] [place] [address] Dr. Usama Hobbs ATYPICAL LYMPH % Normal [facility] Comment on above: Performed By: #### B DIRECTOR STAFFING, CMP #### [facility] [address] [address] [address] Usama Hobbs BAND # 0.0 103/ul Normal 0.0-0.3 [facility] Comment on above: Performed By: #### B DIRECTOR STAFFING, CMP #### [facility] [address] [place] [address] Dr. Usama Hobbs BAND % 0 % Normal 0-5 [facility] Comment on above: Performed By: #### B DIRECTOR STAFFING, CMP #### [facility] [address] [place] [address] Dr. Usama Hobbs BASOM # 0.00 103/ul Normal 0.00-0.10 [facility] Comment on above: Performed By: #### B DIRECTOR STAFFING, CMP #### [facility] [address] [place] [address] Dr. Usama Hobbs BASOM % 0.0 % Critically low 0.2-2.0 [facility] Comment on above: Performed By: #### B DIRECTOR STAFFING, CMP #### [facility] [address] [place] [address] Dr. Usama Hobbs BLAST # Normal [facility] Comment on above: Performed By: #### B DIRECTOR STAFFING, CMP #### [facility] [address] [place] [address] Dr. Usama Hobbs BLAST % Normal [facility] Comment on above: Performed By: #### B DIRECTOR STAFFING, CMP #### [facility] [address] [place] [address] Dr. Usama Hobbs CORRECTED WBC Normal 4.0-11.0 [facility] Comment on above: Performed By: #### B DIRECTOR STAFFING, CMP #### [facility] [address] [place] [address] Dr. Usama Hobbs EOS # 0.14 103/ul Normal 0.00-0.70 [facility] Comment on above: Performed By: #### B DIRECTOR STAFFING, CMP #### [facility] [address] [place] [address] Dr. Usama Hobbs EOS% 8.0 % Critically high 0.9-7.0 [facility] Comment on above: Performed By: #### B DIRECTOR STAFFING, CMP #### [facility] [address] [place] [address] Dr. Usama Hobbs HCT 28.7 % Critically low 42.0-54.0 [facility] Comment on above: Performed By: #### B DIRECTOR STAFFING, CMP #### [facility] [address] [address] [address] Usama Hobbs HGB 9.7 g/dl Critically low 14.0-18.0 [facility] Comment on above: Performed By: #### B DIRECTOR STAFFING, CMP #### [facility] [address] [address] [address] Usama Hobbs LYMPHM # 0.59 103/ul Critically low 1.20-3.80 [facility] Comment on above: Performed By: #### B DIRECTOR STAFFING, CMP #### [facility] [address] [place] [address] Dr. Usama Hobbs LYMPHM% 33.0 % Normal 20.5-60.0 [facility] Comment on above: Performed By: #### B DIRECTOR STAFFING, CMP #### [facility] [address] [place] [address] Dr. Usama Hobbs MCH 30.9 pg Normal 25.9-34.0 [facility] Comment on above: Performed By: #### B DIRECTOR STAFFING, CMP #### [facility] [address] [place] [address] Dr. Usama Hobbs MCHC 33.8 g/dl Normal 29.9-35.2 [facility] Comment on above: Performed By: #### B DIRECTOR STAFFING, CMP #### [facility] [address] [place] [address] Dr. Usama Hobbs MCV 91.4 fL Normal 80.0-94.0 [facility] Comment on above: Performed By: #### B DIRECTOR STAFFING, CMP #### [facility] [address] [place] [address] Dr. Usama Hobbs METAMYELOCYTE # 0.0 103/ul Normal [facility] Comment on above: Performed By: #### B DIRECTOR STAFFING, CMP #### [facility] [address] [place] [address] Dr. Usama Hobbs METAMYELOCYTE % 1 % Normal [facility] Comment on above: Performed By: #### B DIRECTOR STAFFING, CMP #### [facility] [address] [place] [address] Dr. Usama Hobbs MONOM# 0.14 103/ul Critically low 0.30-0.80 [facility] Comment on above: Performed By: #### B DIRECTOR STAFFING, CMP #### [facility] [address] [place] [address] Dr. Usama Hobbs MONOM% 8.0 % Normal 1.7-12.0 [facility] Comment on above: Performed By: #### B DIRECTOR STAFFING, CMP #### [facility] [address] [place] [address] Dr. Usama Hobbs MPV 10.5 fL Normal 9.5-13.5 [facility] Comment on above: Performed By: #### B DIRECTOR STAFFING, CMP #### [facility] [address] [place] [address] Dr. Usama Hobbs MYELOCYTE # 0.1 103/ul Normal [facility] Comment on above: Performed By: #### B DIRECTOR STAFFING, CMP #### [facility] [address] [place] [address] Dr. Usama Hobbs MYELOCYTE % 5 % Normal [facility] Comment on above: Performed By: #### B DIRECTOR STAFFING, CMP #### [facility] [address] [place] [address] Dr. Usama Hobbs NRBC Normal [facility] Comment on above: Performed By: #### B DIRECTOR STAFFING, CMP #### [facility] [address] [place] [address] Dr. Usama Hobbs PLT 163 103/ul Normal 150-450 [facility] Comment on above: Performed By: #### B DIRECTOR STAFFING, CMP #### [facility] [address] [place] [address] Dr. Usama Hobbs RBC 3.14 106/ul Critically low 4.70-6.10 [facility] Comment on above: Performed By: #### B DIRECTOR STAFFING, CMP #### [facility] [address] [place] [address] Dr. Usama Hobbs RDW 12.4 % Normal 11.0-15.0 [facility] Comment on above: Performed By: #### B DIRECTOR STAFFING, CMP #### [facility] [address] [address] [address] Usama Hobbs SEG # 0.81 103/ul Critically low 1.40-6.50 [facility] Comment on above: Performed By: #### B DIRECTOR STAFFING, CMP #### [facility] [address] [address] [address] Usama Hobbs SEG % 45.0 % Normal 43.0-75.0 [facility] Comment on above: Performed By: #### B DIRECTOR STAFFING, CMP #### [facility] [address] [address] [address] Usama Hobbs WBC 1.8 103/ul Critically low 4.0-11.0 [facility] Comment on above: Performed By: #### B DIRECTOR STAFFING, CMP #### [facility] [address] [address] HEAD WO CONon [...] JOSUE SINGH Date: 2021-11-16 18:41 Normal [facility] Covid-19 PCR (CVDTB)on 10-20 SARS-CoV-2 (COVID-19) RNA TONYA+probe Ql (Unsp spec) Not detected Normal NOT DETECTED [facility] Comment on above: Result Comment: This test is not yet approved or cleared by the [place] FDA. When there are no FDA-approved or cleared tests available, and other criteria are met, FDA can make tests available under an emergency access mechanism called an Emergency Use Authorization (EUA). The EUA for this test is supported by the [place] of Health and Human Service's (HHS's) declaration [...] consistent with SARS-CoV-2. Performed By: #### B DIRECTOR STAFFING, CMP #### [facility] [facility] [address] [place] [address] Dr. Usama Hobbs PROF 14(COMP METB)on 022 Albumin [Mass/Vol] 3.3 g/dL Critically low 3.4-5.0 Th e [facility] Comment on above: Performed By: #### P SAD #### [facility] [address] [place] [address] Dr. Usama Hobbs Albumin/Globulin [Mass ratio] 0.9 {ratio} Normal [facility] Comment on above: Performed By: #### P SAD #### [facility] [address] [place] [address] Dr. Usama Hobbs ALP [Catalytic activity/Vol] 78 U/L Normal 46-116 [facility] Comment on above: Performed By: #### P SAD #### [facility] [address] [place] [address] Dr. Usama Hobbs ALT [Catalytic activity/Vol] 33 U/L Normal 16-63 [facility] Comment on above: Performed By: #### P SAD #### [facility] [address] [place] [address] Dr. Usama Hobbs Anion gap [Moles/Vol] 9.8 mmol/L Normal [facility] Comment on above: Performed By: #### P SAD #### [facility] [address] [place] [address] Dr. Usama Hobbs AST [Catalytic activity/Vol] 25 U/L Normal 15-37 [facility] Comment on above: Performed By: #### P SAD #### [facility] [address] [address] [address] Usama Hobbs Bilirubin [Mass/Vol] 0.4 mg/dL Normal 0.2-1.0 [facility] Comment on above: Performed By: #### P SAD #### [facility] [address] [address] [address] Usama Hobbs Calcium [Mass/Vol] 8.1 mg/dL Critically low 8.5-10.1 Th [facility] Comment on above: Performed By: #### P SAD #### [facility] [address] [address] [address] Usama Hobbs Chloride [Moles/Vol] 102 mmol/L Normal 98-107 [facility] Comment on above: Performed By: #### P SAD #### [facility] [address] [address] [address] Usama Hobbs CO2 [Moles/Vol] 27.0 mmol/L Normal 21.0-32.0 [facility] Comment on above: Performed By: #### P SAD #### [facility] [address] [address] [address] Usama Hobbs Creatinine [Mass/Vol] 2.27 mg/dL Critically high 0.70-1.30 [facility] Comment on above: Performed By: #### P SAD #### [facility] [address] [place] [address] Dr. Usama Hobbs EGFR-AF DUTCH 35 mL/min/1.73m2 Critically low >=60 [facility] Comment on above: Performed By: #### P SAD #### [facility] [address] [address] [address] Usama Hobbs EGFR-NON AF DUTCH 29 mL/min/1.73m2 Critically low >=60 [facility] Comment on above: Performed By: #### P SAD #### [facility] [address] [address] [address] Usama Hobbs Globulin (S) [Mass/Vol] 3.5 g/dL Normal [facility] Comment on above: Performed By: #### P SAD #### [facility] [address] [address] [address] Usama Hobbs Glucose [Mass/Vol] 88 mg/dL Normal 74-106 [facility] Comment on above: Performed By: #### P SAD #### [facility] [address] [address] [address] Usama Hobbs Potassium [Moles/Vol] 3.8 mmol/L Normal 3.5-5.1 [facility] Comment on above: Performed By: #### P SAD #### [facility] [address] [address] [address] Usama Hobbs Protein [Mass/Vol] 6.8 g/dL Normal 6.1-8.2 [facility] Comment on above: Performed By: #### P SAD #### [facility] [address] [address] [address] Usama Hobbs Sodium [Moles/Vol] 135 mmol/L Critically low 136-145 Th [facility] Comment on above: Performed By: #### P SAD #### [facility] [address] [address] [address] Usama Hobbs Urea nitrogen [Mass/Vol] 26.0 mg/dL Critically high 7.0-18.0 [facility] Comment on above: Performed By: #### P SAD #### [facility] [address] [address] [address] Usama Hobbs Urea nitrogen/Creatinine [Mass ratio] 11.5 mg/mg Normal [facility] Comment on above: Performed By: #### P SAD #### [facility] [address] [address] [address] Usama Hobbs PROTIMEon 11-16-2021 INR Coag (PPP) [Relative time] 0.99 {INR} Normal [facility] Comment on above: Performed By: #### B DIRECTOR STAFFING, CMP #### [facility] [address] [address] [address] Usama Hobbs INR GUIDELINES SEE BELOW Normal [facility] Comment on above: Result Comment: LUCY RED INR: 2.0 - 3.0 CONDITIONS NOT LISTED BELOW 2.5 - 3.5 FOR PROSTHETIC HEART VALVE REPLACEMENT 2.5 - 3.5 RECURRENT THROMBOSIS Performed By: #### B DIRECTOR STAFFING, CMP #### [facility] [address] [place] [address] Dr. Usama Hobbs PT Coag (PPP) [Time] 10.7 s Normal 9.0-11.6 [facility] Comment on above: Performed By: #### B DIRECTOR STAFFING, CMP #### [facility] [address] [place] [address] Dr. Usama Hobbs PTTon 11-16-2021 aPTT Coag (Bld) [Time] 28.2 s Normal 22.3-36.2 [facility] Comment on above: Performed By: #### B DIRECTOR STAFFING, CMP #### [facility] [address] [place] [address] Dr. Usama Hobbs T4on 11-16-2021 T4 [Mass/Vol] 6.30 ug/dL Normal 4.50-12.10 [facility] Comment on above: Performed By: #### P SAD #### [facility] [address] [place] [address] Dr. Usama Hobbs TROPONIN, HIGH SENSITIVITYon 11-16-2021 HSTROP 24.0 pg/mL Normal 4.0-76.1 [facility] Comment on above: Result Comment: CUT- OFF POINTS HAVE BEEN ESTABLISHED BASED ON THE FOURTH UNIVERSAL DEFINITIONS OF MYOCARDIAL INFARCTION. THE UPPER REFERENCE LIMIT (URL) OF TROPONIN, DEFINED THE 99TH PERCENTILE OF cTnI DISTRIBUTION IN A REFERENCE POPULATION, HAS BEEN CONFIRMED THE DECISION THRESHOLD FOR DC DIAGNOSIS. Performed By: #### B DIRECTOR STAFFING, CMP #### [facility] [address] [place] [address] Dr. Usama Hobbs TSHon 11-16-2021 TSH 2.466 uIU/mL Normal 0.470-4.680 [facility] Comment on above: Performed By: #### P SAD #### [facility] [address] [place] [address] Dr. Usama Hobbs TSH RANGE SEE BELOW Normal [facility] Comment on above: Result Comment: <0.3 4 UIU/ml HYPERTHYROID 0.34-5.60 UIU/ml EUTHYROID >5.60 UIU/ml HYPOTHYROID Performed By: #### P SAD #### [facility] [address] [address] [address] Usama Hobbs XR CHEST 1 Von [...] LEA ANTUNEZ Date: 2021-11-16 19:24 Normal [facility] CBC W Auto Differential pane l (Bld)on 11-05-2021 Abs Immature Gran <0.03 <0.10 k/uL [facility] Basophils (Bld) [#/Vol] 0.05 10*3/uL <0.11 k/uL [facility] Basophils/100 WBC (Bld) 1.0 % [facility] Differential cell count method Nom (Bld) Auto [facility] Eosinophils (Bld) [#/Vol] 0.39 10*3/uL <0.46 k/uL [facility] Eosinophils/100 WBC (Bld) 7.4 % [facility] Erythrocyte distribution width (RBC) [Ratio] 13.2 % 11.5 - 15.0 % [facility] Hematocrit (Bld) [Volume fraction] 39.1 % 39.0 - 51.0 % [facility] Hemoglobin (Bld) [Mass/Vol] 12.9 g/dL Low 13.0 - 17.0 g/dL [facility] Immature Gran % 0.2 % [facility] Lymphocytes (Bld) [#/Vol] 1.07 10*3/uL 1.00 - 4.00 k/uL [facility] Lymphocytes/100 WBC (Bld) 20.4 % [facility] MCH (RBC) [Entitic mass] 30.6 pg 26.0 - 34.0 pg [facility] MCHC (RBC) [Mass/Vol] 33.0 g/dL 30.5 - 36.0 g/dL [facility] MCV (RBC) [Entitic vol] 92.9 fL 80.0 - 100.0 fL [facility] Monocytes (Bld) [#/Vol] 0.57 10*3/uL <0.87 k/uL [facility] Monocytes/100 WBC (Bld) 10.9 % [facility] Neutrophils (Bld) [#/Vol] 3.15 10*3/uL 1.45 - 7.50 k/uL [facility] Neutrophils/100 WBC (Bld) 60.1 % [facility] Nucleated RBC (Bld) [#/Vol] 10*3/uL <0.01 k/uL [facility] Nucleated RBC/100 WBC (Bld) [Ratio] 0.0 /100 WBC [facility] Platelet mean volume (Bld) [Entitic vol] 9.9 fL 9.0 - 12.7 fL [facility] Platelets (Bld) [#/Vol] 305 10*3/uL 150 - 400 k/uL [facility] RBC (Bld) [#/Vol] 4.21 10*6/uL 4.20 - 6.00 m/uL [facility] WBC (Bld) [#/Vol] 5.24 10*3/uL 3.70 - 11.00 k/u L [facility] Comprehensive metabolic 2000 panelon 11-05-2021 Albumin [Mass/Vol] 4.3 g/dL 3.9 - 4.9 g/dL [facility] ALP [Catalytic activity/Vol] 73 U/L 38 - 113 U/L [facility] ALT [Catalytic activity/Vol] 16 U/L 10 - 54 U/L [facility] Anion gap [Moles/Vol] 12 mmol/L 9 - 18 mmol/L [facility] AST [Catalytic activity/Vol] 17 U/L 14 - 40 U/L [facility] Bilirubin [Mass/Vol] 0.5 mg/dL 0.2 - 1.3 mg/dL [facility] Calcium [Mass/Vol] 10.1 mg/dL 8.5 - 10.2 mg/dL [facility] Chloride [Moles/Vol] 105 mmol/L 97 - 105 mmol/L [facility] CO2 [Moles/Vol] 25 mmol/L 22 - 30 mmol/L [facility] Creatinine [Mass/Vol] 0.89 mg/dL 0.73 - 1.22 mg/dL [facility] Estimated Glomerular Filtration Rate 96 mL/min/1.73m >=60 mL/min/1.73m [facility] Glucose [Mass/Vol] 154 mg/dL High 74 - 99 mg/dL [facility] Potassium [Moles/Vol] 4.2 mmol/L 3.7 - 5.1 mmol/L [facility] Protein [Mass/Vol] 7.1 g/dL 6.3 - 8.0 g/dL Cl [facility] Sodium [Moles/Vol] 142 mmol/L 136 - 144 mmol/L [facility] Urea nitrogen [Mass/Vol] 9 mg/dL 9 - 24 mg/dL [facility] MRI BRAIN WO/W IVCONon 10-31 [facility] XR CHEST 2V FRONTAL/LATon [facility] NM PET/CT WHOLE BODY INITIAL on 05-28-2021 [facility] Cardiovascular Lab Reporton 02-24-2019 Cardiovascular Lab Report [facility] Patient Name: Riccardo , [facility] [place] MR #: [id number] Department of Physician: [facility] Alma Chaney M.D. Division of Service Date: 02/23/2019 Cardiology Birthdate: 1955 Adult Cardiovascular Room #: [id number] [address] Cardiovascular Laboratory Report INDICATION: The patient is [...] signed informed consent. 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 The right groin area was prepped and draped in usual fashion. Using micropuncture technique, the right common femoral artery was accessed. The inner cannula was advanced and limited right femoral angiography was performed followed by upsizing to a 6-Indian x 5 cm sheath. Right lower extremity angiography was performed down to the level of the foot. An angled Glidewire was advanced into the abdominal aorta and a 5-Indian Uni-Flush catheter was advanced. Aortoiliac angiography was performed using digital subtraction angiography and power injection of contrast. Using the angled Glidewire, the aortoiliac bifurcation was crossed and the catheter was exchanged to a 5-Indian straight tapered diagnostic catheter, which was used to perform left lower extremity angiography down to the level of the foot. Pullback across the left iliac artery system was performed with measurement of pressure. Left iliac angiography was performed for both external, internal, and common iliac arteries. The catheter was retracted. Right common and external iliac artery angiography was performed using angulated views. A Placely Torque wire was advanced into the distal [...] The access sheath was exchanged to a 6-Indian x 11 cm sheath. The patient was [...] Chaney M.D. Date Trans: 02/24/2019 05:47 A/boris [id number] cc: Christina Azul M.D. [address] [place] [id number] [facility] Vital Signs Date Time Vital Sign Value Performing Clinician Facility 03-20-2024 15:21-0400 Body temperature 97.8 [degF] [facility] 03-20-2024 15:21-0400 Diastolic blood pressure 82 mm[Hg] [facility] 03-20-2024 15:21-0400 Heart rate 68 /min [facility] 03-20-2024 15:21-0400 Respiratory rate 16 /min [facility] 03-20-2024 15:21-0400 SaO2% (BldA) [Mass fraction] 98 % [facility] 03-20-2024 15:21-0400 Systolic blood pressure 171 mm[Hg] [facility] 03-20-2024 06:00-0400 Body weight 50.2 kg [facility] 03-20-2024 00:00-0400 Inhaled oxygen flow rate 2 L/min [facility] 03-19-2024 11:15-0400 Heart rate 80 /min [facility] 03-19-2024 11:00-0400 Diastolic blood pressure 84 mm[Hg] [facility] 03-19-2024 11:00-0400 Respiratory rate 16 /min [facility] 03-19-2024 11:00-0400 SaO2% (BldA) [Mass fraction] 95 % [facility] 03-19-2024 11:00-0400 Systolic blood pressure 178 mm[Hg] [facility] 03-19-2024 09:14-0400 Body height 170.18 cm [facility] 03-19-2024 09:14-0400 Body temperature 97.9 [degF] [facility] 03-19-2024 09:14-0400 Body weight 52.25 kg [facility] 03-18-2024 18:52-0400 Diastolic blood pressure 90 mm[Hg] [facility] 03-18-2024 18:52-0400 Systolic blood pressure 190 mm[Hg] [facility] 03-18-2024 18:45-0400 Body height 170.18 cm [facility] 03-18-2024 18:45-0400 Body temperature 98.4 [degF] [facility] 03-18-2024 18:45-0400 Body weight 52.8 kg [facility] 03-18-2024 18:45-0400 Heart rate 67 /min [facility] 03-18-2024 18:45-0400 Respiratory rate 21 /min [facility] 03-18-2024 18:45-0400 SaO2% (BldA) [Mass fraction] 100 % [facility] 03-18-2024 13:27-0400 SaO2% (BldA) [Mass fraction] 84 % Nina Grigsby MD Work Phone: [facility] 03-18-2024 13:21-0400 Body height 168.3 cm Nina Grigsby MD Work Phone: [facility] 03-18-2024 13:21-0400 Body mass index (BMI) [Ratio] 18.15 kg/m2 Nina Grigsby MD Work Phone: [facility] 03-18-2024 13:21-0400 Body temperature 97.5 [degF] Nina Grigsby MD Work Phone: [facility] 03-18-2024 13:21-0400 Body weight 51.4 kg Nina Grigsby MD Work Phone: [facility] 03-18-2024 13:21-0400 Diastolic blood pressure 78 mm[Hg] Nina Grigsby MD Work Phone: [facility] 03-18-2024 13:21-0400 Heart rate 86 /min Nina Grigsby MD Work Phone: [facility] 03-18-2024 13:21-0400 Respiratory rate 16 /min Nina Grigsby MD Work Phone: [facility] 03-18-2024 13:21-0400 Systolic blood pressure 159 mm[Hg] Nina Grigsby MD Work Phone: [facility] 03-15-2024 13:06-0400 Body mass index (BMI) [Ratio] 17.62 kg/m2 Merary Lucas MD Work Phone: [facility] 03-15-2024 13:06-0400 Body weight 49.9 kg Merary Lucas MD Work Phone: [facility] 03-15-2024 13:06-0400 Diastolic blood pressure 62 mm[Hg] Merary Lucas MD Work Phone: [facility] 03-15-2024 13:06-0400 Heart rate 65 /min Merary Lucas MD Work Phone: [facility] 03-15-2024 13:06-0400 SaO2% (BldA) [Mass fraction] 100 % Merary Lucas MD Work Phone: [facility] Comment on above: ra 03-15-2024 13:06-0400 Systolic blood pressure 127 mm[Hg] Merary Lucas MD Work Phone: [facility] 02-07-2024 19:28-0400 Diastolic blood pressure 75 mm[Hg] [facility] 02-07-2024 19:28-0400 Heart rate 76 /min [facility] 02-07-2024 19:28-0400 Respiratory rate 18 /min [facility] 02-07-2024 19:28-0400 SaO2% (BldA) [Mass fraction] 97 % [facility] 02-07-2024 19:28-0400 Systolic blood pressure 159 mm[Hg] [facility] 02-07-2024 15:51-0400 Body height 170.18 cm [facility] 02-07-2024 15:51-0400 Body temperature 98 [degF] [facility] 02-07-2024 15:51-0400 Body weight 52.3 kg [facility] 02-03-2024 11:32-0400 Body height 168.3 cm Yusef Jessica PA-C Work Phone: [facility] 02-03-2024 11:32-0400 Body mass index (BMI) [Ratio] 18.43 kg/m2 Yusef Jessica PA-C Work Phone: [facility] 02-03-2024 11:32-0400 Body temperature 97.3 [degF] Yusef Jessica PA-C Work Phone: [facility] 02-03-2024 11:32-0400 Body weight 52.2 kg Yusef Jessica PA-C Work Phone: [facility] 02-03-2024 11:32-0400 Diastolic blood pressure 74 mm[Hg] Yusef Jessica PA-C Work Phone: [facility] 02-03-2024 11:32-0400 Heart rate 92 /min Yusef Jessica PA-C Work Phone: [facility] 02-03-2024 11:32-0400 Respiratory rate 18 /min Yusef Jessica PA-C Work Phone: [facility] 02-03-2024 11:32-0400 SaO2% (BldA) [Mass fraction] 99 % Yusef Almaguerer PA-C Work Phone: [facility] 02-03-2024 11:32-0400 Systolic blood pressure 122 mm[Hg] Yusef Almaguerer PA-C Work Phone: [facility] 12-23-2023 14:53-0400 Body height 168.3 cm Nina Grigsby MD Work Phone: [facility] 12-23-2023 14:53-0400 Body mass index (BMI) [Ratio] 19.49 kg/m2 Nina Grigsby MD Work Phone: [facility] 12-23-2023 14:53-0400 Body temperature 97.39 [degF] Nina Grigsby MD Work Phone: [facility] 12-23-2023 14:53-0400 Body weight 55.2 kg Nina Grigsby MD Work Phone: [facility] 12-23-2023 14:53-0400 Diastolic blood pressure 74 mm[Hg] Nina Grigsby MD Work Phone: [facility] 12-23-2023 14:53-0400 Heart rate 71 /min Nina Grigsby MD Work Phone: [facility] 12-23-2023 14:53-0400 Respiratory rate 16 /min Nina Grigsby MD Work Phone: [facility] 12-23-2023 14:53-0400 SaO2% (BldA) [Mass fraction] 99 % Nina Grigsby MD Work Phone: [facility] 12-23-2023 14:53-0400 Systolic blood pressure 137 mm[Hg] Nina Grigsby MD Work Phone: [facility] 12-22-2023 12:38-0400 Body mass index (BMI) [Ratio] 18.29 kg/m2 JC Limon MD Work Phone: [facility] 12-22-2023 12:38-0400 Body temperature 97.59 [degF] JC Limon MD Work Phone: [facility] 12-22-2023 12:38-0400 Body weight 51.8 kg JC Limon MD Work Phone: [facility] 12-22-2023 12:38-0400 Diastolic blood pressure 83 mm[Hg] JC Limon MD Work Phone: [facility] 12-22-2023 12:38-0400 Heart rate 116 /min JC Limon MD Work Phone: [facility] 12-22-2023 12:38-0400 Respiratory rate 18 /min JC Limon MD Work Phone: [facility] 12-22-2023 12:38-0400 SaO2% (BldA) [Mass fraction] 99 % JC Limon MD Work Phone: [facility] 12-22-2023 12:38-0400 Systolic blood pressure 124 mm[Hg] JC Limon MD Work Phone: [facility] 12-16-2023 15:45-0400 Body mass index (BMI) [Ratio] 19.14 kg/m2 JC Limon MD Work Phone: [facility] 12-16-2023 15:45-0400 Body temperature 97.3 [degF] JC Limon MD Work Phone: [facility] 12-16-2023 15:45-0400 Body weight 54.2 kg JC Limon MD Work Phone: [facility] 12-16-2023 15:45-0400 Diastolic blood pressure 86 mm[Hg] JC Limon MD Work Phone: [facility] 12-16-2023 15:45-0400 Heart rate 66 /min JC Limon MD Work Phone: [facility] 12-16-2023 15:45-0400 Respiratory rate 16 /min JC Limon MD Work Phone: [facility] 12-16-2023 15:45-0400 SaO2% (BldA) [Mass fraction] 100 % JC Limon MD Work Phone: [facility] 12-16-2023 15:45-0400 Systolic blood pressure 161 mm[Hg] JC Limon MD Work Phone: [facility] 12-10-2023 14:40-0400 Body mass index (BMI) [Ratio] 19.21 kg/m2 JC Limon MD Work Phone: [facility] 12-10-2023 14:40-0400 Body temperature 96.69 [degF] JC Limon MD Work Phone: [facility] 12-10-2023 14:40-0400 Body weight 54.4 kg JC Limon MD Work Phone: [facility] 12-10-2023 14:40-0400 Diastolic blood pressure 68 mm[Hg] JC Limon MD Work Phone: [facility] 12-10-2023 14:40-0400 Heart rate 68 /min JC Limon MD Work Phone: [facility] 12-10-2023 14:40-0400 Respiratory rate 16 /min JC Limon MD Work Phone: [facility] 12-10-2023 14:40-0400 SaO2% (BldA) [Mass fraction] 97 % JC Limon MD Work Phone: [facility] 12-10-2023 14:40-0400 Systolic blood pressure 125 mm[Hg] JC Limon MD Work Phone: [facility] 12-02-2023 10:20-0400 Body height 168.3 cm Nina Grigsby MD Work Phone: [facility] 12-02-2023 10:20-0400 Body mass index (BMI) [Ratio] 18.71 kg/m2 Nina Grigsby MD Work Phone: [facility] 12-02-2023 10:20-0400 Body temperature 96.69 [degF] Nina Grigsby MD Work Phone: [facility] 12-02-2023 10:20-0400 Body weight 53 kg Nina Grigsby MD Work Phone: [facility] 12-02-2023 10:20-0400 Diastolic blood pressure 83 mm[Hg] Nina Grigsby MD Work Phone: [facility] 12-02-2023 10:20-0400 Heart rate 55 /min Nina Grigsby MD Work Phone: [facility] 12-02-2023 10:20-0400 Respiratory rate 16 /min Nina Grigsby MD Work Phone: [facility] 12-02-2023 10:20-0400 SaO2% (BldA) [Mass fraction] 93 % Nina Grigsby MD Work Phone: [facility] 12-02-2023 10:20-0400 Systolic blood pressure 133 mm[Hg] Nina Grigsby MD Work Phone: [facility] 11-21-2023 10:05-0400 Body height 168.3 cm Estella Bundridge TOWER EXCAVATOR OPERATOR.FOUNTAIN CLERK Work Phone: [facility] 11-21-2023 10:05-0400 Body mass index (BMI) [Ratio] 19.74 kg/m2 Estella Bundridge TOWER EXCAVATOR OPERATOR.FOUNTAIN CLERK Work Phone: [facility] 11-21-2023 10:05-0400 Body temperature 97.7 [degF] Estella Bundridge TOWER EXCAVATOR OPERATOR.FOUNTAIN CLERK Work Phone: [facility] 11-21-2023 10:05-0400 Body weight 55.9 kg Estella Bundridge TOWER EXCAVATOR OPERATOR.FOUNTAIN CLERK Work Phone: [facility] 11-21-2023 10:05-0400 Diastolic blood pressure 91 mm[Hg] Estella Bundridge TOWER EXCAVATOR OPERATOR.FOUNTAIN CLERK Work Phone: [facility] 11-21-2023 10:05-0400 Heart rate 95 /min Estella Bundridge TOWER EXCAVATOR OPERATOR.FOUNTAIN CLERK Work Phone: [facility] 11-21-2023 10:05-0400 Respiratory rate 16 /min Estella Bundridge TOWER EXCAVATOR OPERATOR.FOUNTAIN CLERK Work Phone: [facility] 11-21-2023 10:05-0400 SaO2% (BldA) [Mass fraction] 98 % Estella Bundridge TOWER EXCAVATOR OPERATOR.FOUNTAIN CLERK Work Phone: [facility] 11-21-2023 10:05-0400 Systolic blood pressure 154 mm[Hg] Estella Bundridge TOWER EXCAVATOR OPERATOR.FOUNTAIN CLERK Work Phone: [facility] 11-04-2023 09:43-0400 Body height 168.3 cm Nina Grigsby MD Work Phone: [facility] 11-04-2023 09:43-0400 Body temperature 97 [degF] Nina Grigsby MD Work Phone: [facility] 11-04-2023 09:43-0400 Body weight 56.3 kg Nina Grigsby MD Work Phone: [facility] 11-04-2023 09:43-0400 Diastolic blood pressure 84 mm[Hg] Nina Grigsby MD Work Phone: [facility] 11-04-2023 09:43-0400 Heart rate 101 /min Nina Grigsby MD Work Phone: [facility] 11-04-2023 09:43-0400 Respiratory rate 16 /min Nina Grigsby MD Work Phone: [facility] 11-04-2023 09:43-0400 SaO2% (BldA) [Mass fraction] 96 % Nina Grigsby MD Work Phone: [facility] 11-04-2023 09:43-0400 Systolic blood pressure 147 mm[Hg] Nina Grigsby MD Work Phone: [facility] 10-20-2023 10:06-0400 Body height 168.3 cm Nina Grigsby MD Work Phone: [facility] 10-20-2023 10:06-0400 Body temperature 97.3 [degF] Nina Grigsby MD Work Phone: [facility] 10-20-2023 10:06-0400 Body weight 57.5 kg Nina Grigsby MD Work Phone: [facility] 10-20-2023 10:06-0400 Diastolic blood pressure 72 mm[Hg] Nina Grigsby MD Work Phone: [facility] 10-20-2023 10:06-0400 Heart rate 82 /min Nina Grigsby MD Work Phone: [facility] 10-20-2023 10:06-0400 Respiratory rate 18 /min Nina Grigsby MD Work Phone: [facility] 10-20-2023 10:06-0400 SaO2% (BldA) [Mass fraction] 98 % Nina Grigsby MD Work Phone: [facility] 10-20-2023 10:06-0400 Systolic blood pressure 155 mm[Hg] Nina Grigsby MD Work Phone: [facility] 09-22-2023 09:56-0500 Body height 168.3 cm Nina Grigsby MD Work Phone: [facility] 09-22-2023 09:56-0500 Body temperature 97.11 [degF] Nina Grigsby MD Work Phone: [facility] 09-22-2023 09:56-0500 Body weight 60.2 kg Nina Grigsby MD Work Phone: [facility] 09-22-2023 09:56-0500 Diastolic blood pressure 78 mm[Hg] Nina Grigsby MD Work Phone: [facility] 09-22-2023 09:56-0500 Heart rate 91 /min Nina Grigsby MD Work Phone: [facility] 09-22-2023 09:56-0500 Respiratory rate 18 /min Nina Grigsby MD Work Phone: [facility] 09-22-2023 09:56-0500 SaO2% (BldA) [Mass fraction] 99 % Nina Grigsby MD Work Phone: [facility] 09-22-2023 09:56-0500 Systolic blood pressure 142 mm[Hg] Nina Grigsby MD Work Phone: [facility] 08-25-2023 14:55-0500 Body height 168.3 cm Nina Grigsby MD Work Phone: [facility] 08-25-2023 14:55-0500 Body temperature 97.59 [degF] Nina Grigsby MD Work Phone: [facility] 08-25-2023 14:55-0500 Body weight 61.2 kg Nina Grigsby MD Work Phone: [facility] 08-25-2023 14:55-0500 Diastolic blood pressure 70 mm[Hg] Nina Grigsby MD Work Phone: [facility] 08-25-2023 14:55-0500 Heart rate 67 /min Nina Grigsby MD Work Phone: [facility] 08-25-2023 14:55-0500 Respiratory rate 18 /min Nina Grigsby MD Work Phone: [facility] 08-25-2023 14:55-0500 Systolic blood pressure 136 mm[Hg] Nina Grigsby MD Work Phone: [facility] 06-30-2023 15:09-0500 Body height 168.3 cm Nina Grigsby MD Work Phone: [facility] 06-30-2023 15:09-0500 Body temperature 97.11 [degF] Nina Grigsby MD Work Phone: [facility] 06-30-2023 15:09-0500 Body weight 63.05 kg Nina Grigsby MD Work Phone: [facility] 06-30-2023 15:09-0500 Diastolic blood pressure 66 mm[Hg] Nina Grigsby MD Work Phone: [facility] 06-30-2023 15:09-0500 Heart rate 84 /min Nina Grigsby MD Work Phone: [facility] 06-30-2023 15:09-0500 Respiratory rate 16 /min Nina Grigsby MD Work Phone: [facility] 06-30-2023 15:09-0500 Systolic blood pressure 119 mm[Hg] Nina Grigsby MD Work Phone: [facility] 06-13-2023 09:34-0500 Body temperature 97 [degF] Estella Bundridge TOWER EXCAVATOR OPERATOR.FOUNTAIN CLERK Work Phone: [facility] 06-13-2023 09:34-0500 Body weight 63.41 kg Estella Bundridge TOWER EXCAVATOR OPERATOR.FOUNTAIN CLERK Work Phone: [facility] 06-13-2023 09:34-0500 Diastolic blood pressure 78 mm[Hg] Estella Bundridge TOWER EXCAVATOR OPERATOR.FOUNTAIN CLERK Work Phone: [facility] 06-13-2023 09:34-0500 Heart rate 84 /min Estella Bundridge TOWER EXCAVATOR OPERATOR.FOUNTAIN CLERK Work Phone: [facility] 06-13-2023 09:34-0500 Respiratory rate 18 /min Estella Bundridge TOWER EXCAVATOR OPERATOR.FOUNTAIN CLERK Work Phone: [facility] 06-13-2023 09:34-0500 SaO2% (BldA) [Mass fraction] 98 % Estella Bundridge TOWER EXCAVATOR OPERATOR.FOUNTAIN CLERK Work Phone: [facility] 06-13-2023 09:34-0500 Systolic blood pressure 139 mm[Hg] Estella Bundridge TOWER EXCAVATOR OPERATOR.FOUNTAIN CLERK Work Phone: [facility] 06-02-2023 14:34-0500 Body height 168.3 cm Patricia Miller TOWER EXCAVATOR OPERATOR.FOUNTAIN CLERK Work Phone: [facility] 06-02-2023 14:34-0500 Body temperature 97.59 [degF] Patricia Miller TOWER EXCAVATOR OPERATOR.FOUNTAIN CLERK Work Phone: [facility] 06-02-2023 14:34-0500 Body weight 63.78 kg Patricia Miller TOWER EXCAVATOR OPERATOR.FOUNTAIN CLERK Work Phone: [facility] 06-02-2023 14:34-0500 Diastolic blood pressure 101 mm[Hg] Patricia Miller TOWER EXCAVATOR OPERATOR.FOUNTAIN CLERK Work Phone: [facility] 06-02-2023 14:34-0500 Heart rate 98 /min Patricia Miller TOWER EXCAVATOR OPERATOR.FOUNTAIN CLERK Work Phone: [facility] 06-02-2023 14:34-0500 Respiratory rate 16 /min Patricia Miller TOWER EXCAVATOR OPERATOR.FOUNTAIN CLERK Work Phone: [facility] 06-02-2023 14:34-0500 SaO2% (BldA) [Mass fraction] 97 % Patricia Miller TOWER EXCAVATOR OPERATOR.FOUNTAIN CLERK Work Phone: [facility] 06-02-2023 14:34-0500 Systolic blood pressure 160 mm[Hg] Patricia Miller TOWER EXCAVATOR OPERATOR.FOUNTAIN CLERK Work Phone: [facility] 05-30-2023 11:11-0500 Body temperature 97.3 [degF] JC Limon MD Work Phone: [facility] 05-30-2023 11:11-0500 Body weight 64.32 kg JC Limon MD Work Phone: [facility] 05-30-2023 11:11-0500 Diastolic blood pressure 114 mm[Hg] JC Limon MD Work Phone: [facility] 05-30-2023 11:11-0500 Heart rate 70 /min JC Limon MD Work Phone: [facility] 05-30-2023 11:11-0500 Respiratory rate 16 /min JC Limon MD Work Phone: [facility] 05-30-2023 11:11-0500 SaO2% (BldA) [Mass fraction] 100 % JC Limon MD Work Phone: [facility] 05-30-2023 11:11-0500 Systolic blood pressure 172 mm[Hg] JC Limon MD Work Phone: [facility] 05-16-2023 08:51-0400 Body height 168.3 cm Estella Bundridge TOWER EXCAVATOR OPERATOR.FOUNTAIN CLERK Work Phone: [facility] 05-16-2023 08:51-0400 Body temperature 97 [degF] Estella Bundridge TOWER EXCAVATOR OPERATOR.FOUNTAIN CLERK Work Phone: [facility] 05-16-2023 08:51-0400 Body weight 63.14 kg Estella Bundridge TOWER EXCAVATOR OPERATOR.FOUNTAIN CLERK Work Phone: [facility] 05-16-2023 08:51-0400 Diastolic blood pressure 85 mm[Hg] Estella Bundridge TOWER EXCAVATOR OPERATOR.FOUNTAIN CLERK Work Phone: [facility] 05-16-2023 08:51-0400 Heart rate 85 /min Estella Bundridge TOWER EXCAVATOR OPERATOR.FOUNTAIN CLERK Work Phone: [facility] 05-16-2023 08:51-0400 Respiratory rate 16 /min Estella Bundridge TOWER EXCAVATOR OPERATOR.FOUNTAIN CLERK Work Phone: [facility] 05-16-2023 08:51-0400 SaO2% (BldA) [Mass fraction] 98 % Estella Bundridge TOWER EXCAVATOR OPERATOR.FOUNTAIN CLERK Work Phone: [facility] 05-16-2023 08:51-0400 Systolic blood pressure 150 mm[Hg] Estella Bundridge TOWER EXCAVATOR OPERATOR.FOUNTAIN CLERK Work Phone: [facility] 04-01-2023 12:53-0400 Diastolic blood pressure 101 mm[Hg] Patricia Miller TOWER EXCAVATOR OPERATOR.FOUNTAIN CLERK Work Phone: [facility] 04-01-2023 12:53-0400 Heart rate 105 /min Patricia Miller TOWER EXCAVATOR OPERATOR.FOUNTAIN CLERK Work Phone: [facility] 04-01-2023 12:53-0400 Systolic blood pressure 191 mm[Hg] Patricia Miller TOWER EXCAVATOR OPERATOR.FOUNTAIN CLERK Work Phone: [facility] 04-01-2023 12:50-0400 Body height 168.3 cm Patricia Miller TOWER EXCAVATOR OPERATOR.FOUNTAIN CLERK Work Phone: [facility] 04-01-2023 12:50-0400 Body temperature 97.81 [degF] Patricia Miller TOWER EXCAVATOR OPERATOR.FOUNTAIN CLERK Work Phone: [facility] 04-01-2023 12:50-0400 Body weight 62.96 kg Patricia Miller TOWER EXCAVATOR OPERATOR.FOUNTAIN CLERK Work Phone: [facility] 04-01-2023 12:50-0400 Respiratory rate 18 /min Patricia Miller TOWER EXCAVATOR OPERATOR.FOUNTAIN CLERK Work Phone: [facility] 04-01-2023 12:50-0400 SaO2% (BldA) [Mass fraction] 98 % Patricia Miller TOWER EXCAVATOR OPERATOR.FOUNTAIN CLERK Work Phone: [facility] 03-11-2023 13:40-0400 Body height 168.3 cm Nina Grigsby MD Work Phone: [facility] 03-11-2023 13:40-0400 Body temperature 97.59 [degF] Nina Grigsby MD Work Phone: [facility] 03-11-2023 13:40-0400 Body weight 62.14 kg Nina Grigsby MD Work Phone: [facility] 03-11-2023 13:40-0400 Diastolic blood pressure 74 mm[Hg] Nina Grigsby MD Work Phone: [facility] 03-11-2023 13:40-0400 Heart rate 75 /min Nina Grigsby MD Work Phone: [facility] 03-11-2023 13:40-0400 Respiratory rate 16 /min Nina Grigsby MD Work Phone: [facility] 03-11-2023 13:40-0400 SaO2% (BldA) [Mass fraction] 99 % Nina Grigsby MD Work Phone: [facility] 03-11-2023 13:40-0400 Systolic blood pressure 158 mm[Hg] Nina Grigsby MD Work Phone: [facility] 02-18-2023 16:06-0400 Diastolic blood pressure 97 mm[Hg] Chair Jose Work Phone: [facility] 02-18-2023 16:06-0400 Systolic blood pressure 183 mm[Hg] Chair Jose Work Phone: [facility] 02-18-2023 14:38-0400 Body height 168.3 cm Nina Grigsby MD Work Phone: [facility] 02-18-2023 14:38-0400 Body temperature 97.9 [degF] Nina Grigsby MD Work Phone: [facility] 02-18-2023 14:38-0400 Body weight 60.24 kg Nina Grigsby MD Work Phone: [facility] 02-18-2023 14:38-0400 Diastolic blood pressure 103 mm[Hg] Nina Grigsby MD Work Phone: [facility] 02-18-2023 14:38-0400 Heart rate 134 /min Nina Grigsby MD Work Phone: [facility] 02-18-2023 14:38-0400 Respiratory rate 16 /min Nina Grigsby MD Work Phone: [facility] 02-18-2023 14:38-0400 SaO2% (BldA) [Mass fraction] 98 % Nina Grigsby MD Work Phone: [facility] 02-18-2023 14:38-0400 Systolic blood pressure 161 mm[Hg] Nina Grigsby MD Work Phone: [facility] 01-03-2023 21:46-0400 Diastolic blood pressure 101 mm[Hg] MD Christina Azul Work Phone: [facility] 01-03-2023 21:46-0400 Heart rate 71 /min MD Christina Azul Work Phone: [facility] 01-03-2023 21:46-0400 Respiratory rate 18 /min MD Christina Azul Work Phone: [facility] 01-03-2023 21:46-0400 SaO2% (BldA) [Mass fraction] 98 % MD Christina Azul Work Phone: [facility] 01-03-2023 21:46-0400 Systolic blood pressure 173 mm[Hg] MD Christina Azul Work Phone: [facility] 01-03-2023 17:10-0400 Body height 170.18 cm MD Christina Azul Work Phone: [facility] 01-03-2023 17:10-0400 Body temperature 98.6 [degF] MD Christina Azul Work Phone: [facility] 01-03-2023 17:10-0400 Body weight 58.75 kg MD Christina Azul Work Phone: [facility] 12-17-2022 08:47-0400 Body height 168.3 cm Nina Grigsby MD Work Phone: [facility] 12-17-2022 08:47-0400 Body temperature 98.6 [degF] Nina Grigsby MD Work Phone: [facility] 12-17-2022 08:47-0400 Body weight 59.42 kg Nina Grigsby MD Work Phone: [facility] 12-17-2022 08:47-0400 Diastolic blood pressure 70 mm[Hg] Nina Grigsby MD Work Phone: [facility] 12-17-2022 08:47-0400 Heart rate 106 /min Nina Grigsby MD Work Phone: [facility] 12-17-2022 08:47-0400 Respiratory rate 16 /min Nina Grigsby MD Work Phone: [facility] 12-17-2022 08:47-0400 SaO2% (BldA) [Mass fraction] 96 % Nina Grigsby MD Work Phone: [facility] 12-17-2022 08:47-0400 Systolic blood pressure 122 mm[Hg] Nina Grigsby MD Work Phone: [facility] 11-25-2022 09:28-0400 Body height 168.3 cm Patricia Miller TOWER EXCAVATOR OPERATOR.FOUNTAIN CLERK Work Phone: [facility] 11-25-2022 09:28-0400 Body temperature 97.5 [degF] Patricia Miller TOWER EXCAVATOR OPERATOR.FOUNTAIN CLERK Work Phone: [facility] 11-25-2022 09:28-0400 Body weight 59.15 kg Patricia Miller TOWER EXCAVATOR OPERATOR.FOUNTAIN CLERK Work Phone: [facility] 11-25-2022 09:28-0400 Diastolic blood pressure 69 mm[Hg] Patricia Miller TOWER EXCAVATOR OPERATOR.FOUNTAIN CLERK Work Phone: [facility] 11-25-2022 09:28-0400 Heart rate 97 /min Patricia Miller APRN.FOUNTAIN CLERK Work Phone: [facility] 11-25-2022 09:28-0400 Respiratory rate 16 /min Patricia Miller APRN.FOUNTAIN CLERK Work Phone: [facility] 11-25-2022 09:28-0400 SaO2% (BldA) [Mass fraction] 99 % Patricia Miller TOWER EXCAVATOR OPERATOR.FOUNTAIN CLERK Work Phone: [facility] 11-25-2022 09:28-0400 Systolic blood pressure 108 mm[Hg] Patricia Miller TOWER EXCAVATOR OPERATOR.FOUNTAIN CLERK Work Phone: [facility] 11-20-2022 10:33-0400 Body temperature 97.7 [degF] JC Limon MD Work Phone: [facility] 11-20-2022 10:33-0400 Body weight 59.24 kg JC Limon MD Work Phone: [facility] 11-20-2022 10:33-0400 Diastolic blood pressure 73 mm[Hg] JC Limon MD Work Phone: [facility] 11-20-2022 10:33-0400 Heart rate 87 /min JC Limon MD Work Phone: [facility] 11-20-2022 10:33-0400 Respiratory rate 18 /min JC Limon MD Work Phone: [facility] 11-20-2022 10:33-0400 SaO2% (BldA) [Mass fraction] 97 % JC Limon MD Work Phone: [facility] 11-20-2022 10:33-0400 Systolic blood pressure 137 mm[Hg] JC Limon MD Work Phone: [facility] 11-18-2022 13:30-0400 Body height 168.3 cm Nina Grigsby MD Work Phone: [facility] 11-18-2022 13:30-0400 Body temperature 97.2 [degF] Nina Grigsby MD Work Phone: [facility] 11-18-2022 13:30-0400 Body weight 60.33 kg Nina Grigsby MD Work Phone: [facility] 11-18-2022 13:30-0400 Diastolic blood pressure 70 mm[Hg] Nina Grigsby MD Work Phone: [facility] 11-18-2022 13:30-0400 Heart rate 84 /min Nina Grigsby MD Work Phone: [facility] 11-18-2022 13:30-0400 Respiratory rate 16 /min Nina Grigsby MD Work Phone: [facility] 11-18-2022 13:30-0400 SaO2% (BldA) [Mass fraction] 100 % Nina Grigsby MD Work Phone: [facility] 11-18-2022 13:30-0400 Systolic blood pressure 124 mm[Hg] Nina Grigsby MD Work Phone: [facility] 11-11-2022 13:19-0400 Body height 168.3 cm Nina Grigsby MD Work Phone: [facility] 11-11-2022 13:19-0400 Body temperature 96.6 [degF] Nina Grigsby MD Work Phone: [facility] 11-11-2022 13:19-0400 Body weight 61.2 kg Nina Grigsby MD Work Phone: [facility] 11-11-2022 13:19-0400 Diastolic blood pressure 84 mm[Hg] Nina Grigsby MD Work Phone: [facility] 11-11-2022 13:19-0400 Heart rate 72 /min Nina Grigsby MD Work Phone: [facility] 11-11-2022 13:19-0400 Respiratory rate 18 /min Nina Grigsby MD Work Phone: [facility] 11-11-2022 13:19-0400 SaO2% (BldA) [Mass fraction] 96 % Nina Grigsby MD Work Phone: [facility] 11-11-2022 13:19-0400 Systolic blood pressure 162 mm[Hg] Nina Grigsby MD Work Phone: [facility] 11-04-2022 11:19-0400 Body temperature 97.7 [degF] JC Limon MD Work Phone: [facility] 11-04-2022 11:19-0400 Body weight 60.06 kg JC Limon MD Work Phone: [facility] 11-04-2022 11:19-0400 Diastolic blood pressure 84 mm[Hg] JC Limon MD Work Phone: [facility] 11-04-2022 11:19-0400 Heart rate 87 /min JC Limon MD Work Phone: [facility] 11-04-2022 11:19-0400 Respiratory rate 16 /min JC Limon MD Work Phone: [facility] 11-04-2022 11:19-0400 SaO2% (BldA) [Mass fraction] 95 % JC Limon MD Work Phone: [facility] 11-04-2022 11:19-0400 Systolic blood pressure 159 mm[Hg] JC Limon MD Work Phone: [facility] 10-31-2022 14:57-0400 Body height 168.3 cm Nina Grigsby MD Work Phone: [facility] 10-31-2022 14:57-0400 Body temperature 97.2 [degF] Nina Grigsby MD Work Phone: [facility] 10-31-2022 14:57-0400 Body weight 59.97 kg Nina Grigsby MD Work Phone: [facility] 10-31-2022 14:57-0400 Diastolic blood pressure 65 mm[Hg] Nina Grigsby MD Work Phone: [facility] 10-31-2022 14:57-0400 Heart rate 90 /min Nina Grigsby MD Work Phone: [facility] 10-31-2022 14:57-0400 Respiratory rate 16 /min Nina Grigsby MD Work Phone: [facility] 10-31-2022 14:57-0400 SaO2% (BldA) [Mass fraction] 100 % Nina Grigsby MD Work Phone: [facility] 10-31-2022 14:57-0400 Systolic blood pressure 114 mm[Hg] Nina Grigsby MD Work Phone: [facility] 10-21-2022 14:08-0400 Body height 168.3 cm Chair Mendez Work Phone: [facility] 10-21-2022 13:42-0400 Body height 169.5 cm JC Limon MD Work Phone: [facility] 10-21-2022 13:35-0400 Body height 169.7 cm Nina Grigsby MD Work Phone: [facility] 10-21-2022 13:35-0400 Body temperature 97.9 [degF] Nina Grigsby MD Work Phone: [facility] 10-21-2022 13:35-0400 Body weight 61.24 kg Nina Grigsby MD Work Phone: [facility] 10-21-2022 13:35-0400 Diastolic blood pressure 79 mm[Hg] Nina Grigsby MD Work Phone: [facility] 10-21-2022 13:35-0400 Heart rate 92 /min Nina Grigsby MD Work Phone: [facility] 10-21-2022 13:35-0400 Respiratory rate 16 /min Nina Grigsby MD Work Phone: [facility] 10-21-2022 13:35-0400 SaO2% (BldA) [Mass fraction] 97 % Nina Grigsby MD Work Phone: [facility] 10-21-2022 13:35-0400 Systolic blood pressure 129 mm[Hg] Nina Grigsby MD Work Phone: [facility] 10-15-2022 09:06-0400 Body height 167.6 cm Nina Grigsby MD Work Phone: [facility] 10-15-2022 09:06-0400 Body temperature 97 [degF] Nina Grigsby MD Work Phone: [facility] 10-15-2022 09:06-0400 Body weight 60.6 kg Nina Grigsby MD Work Phone: [facility] 10-15-2022 09:06-0400 Diastolic blood pressure 89 mm[Hg] Nina Grigsby MD Work Phone: [facility] 10-15-2022 09:06-0400 Heart rate 68 /min Nina Grigsby MD Work Phone: [facility] 10-15-2022 09:06-0400 Respiratory rate 16 /min Nina Grigsby MD Work Phone: [facility] 10-15-2022 09:06-0400 SaO2% (BldA) [Mass fraction] 94 % Nina Grigsby MD Work Phone: [facility] 10-15-2022 09:06-0400 Systolic blood pressure 158 mm[Hg] Nina Grigsby MD Work Phone: [facility] 09-23-2022 10:19-0500 Body height 167.6 cm Nina Grigsby MD Work Phone: [facility] 09-23-2022 10:19-0500 Body temperature 97.59 [degF] Nina Grigsby MD Work Phone: [facility] 09-23-2022 10:19-0500 Body weight 60.69 kg Nina Grigsby MD Work Phone: [facility] 09-23-2022 10:19-0500 Diastolic blood pressure 71 mm[Hg] Nina Grigsby MD Work Phone: [facility] 09-23-2022 10:19-0500 Heart rate 85 /min Nina Grigsby MD Work Phone: [facility] 09-23-2022 10:19-0500 Respiratory rate 16 /min Nina Grigsby MD Work Phone: [facility] 09-23-2022 10:19-0500 SaO2% (BldA) [Mass fraction] 96 % Nina Grigsby MD Work Phone: [facility] 09-23-2022 10:19-0500 Systolic blood pressure 113 mm[Hg] Nina Grigsby MD Work Phone: [facility] 08-20-2022 09:52-0500 Body height 167.6 cm Nina Grigsby MD Work Phone: [facility] 08-20-2022 09:52-0500 Body temperature 98.8 [degF] Nina Grigsby MD Work Phone: [facility] 08-20-2022 09:52-0500 Body weight 62.14 kg Nina Grigsby MD Work Phone: [facility] 08-20-2022 09:52-0500 Diastolic blood pressure 64 mm[Hg] Nina Grigsby MD Work Phone: [facility] 08-20-2022 09:52-0500 Heart rate 99 /min Nina Grigsby MD Work Phone: [facility] 08-20-2022 09:52-0500 Respiratory rate 16 /min Nina Grigsby MD Work Phone: [facility] 08-20-2022 09:52-0500 SaO2% (BldA) [Mass fraction] 96 % Nina Grigsby MD Work Phone: [facility] 08-20-2022 09:52-0500 Systolic blood pressure 122 mm[Hg] Nina Grigsby MD Work Phone: [facility] 06-25-2022 10:01-0500 Body height 167.6 cm Patricia Miller APRN.FOUNTAIN CLERK Work Phone: [facility] 06-25-2022 10:01-0500 Body temperature 97.9 [degF] Patricia Miller APRN.FOUNTAIN CLERK Work Phone: [facility] 06-25-2022 10:01-0500 Body weight 59.97 kg Patricia Miller APRN.FOUNTAIN CLERK Work Phone: [facility] 06-25-2022 10:01-0500 Diastolic blood pressure 74 mm[Hg] Patricia Miller APRN.FOUNTAIN CLERK Work Phone: [facility] 06-25-2022 10:01-0500 Heart rate 101 /min Patricia Miller APRN.FOUNTAIN CLERK Work Phone: [facility] 06-25-2022 10:01-0500 Respiratory rate 16 /min Patricia Miller APRN.FOUNTAIN CLERK Work Phone: [facility] 06-25-2022 10:01-0500 SaO2% (BldA) [Mass fraction] 94 % Patricia Miller APRN.FOUNTAIN CLERK Work Phone: [facility] 06-25-2022 10:01-0500 Systolic blood pressure 139 mm[Hg] Patricia Miller APRN.FOUNTAIN CLERK Work Phone: [facility] 04-22-2022 11:27-0400 Body temperature 96.91 [degF] JC Limon MD Work Phone: [facility] 04-22-2022 11:27-0400 Body weight 60.33 kg JC Limon MD Work Phone: [facility] 04-22-2022 11:27-0400 Diastolic blood pressure 90 mm[Hg] JC Limon MD Work Phone: [facility] 04-22-2022 11:27-0400 Heart rate 103 /min JC Limon MD Work Phone: [facility] 04-22-2022 11:27-0400 Respiratory rate 18 /min JC Limon MD Work Phone: [facility] 04-22-2022 11:27-0400 SaO2% (BldA) [Mass fraction] 100 % JC Limon MD Work Phone: [facility] 04-22-2022 11:27-0400 Systolic blood pressure 169 mm[Hg] JC Limon MD Work Phone: [facility] 04-15-2022 09:12-0400 Body temperature 96.69 [degF] JC Limon MD Work Phone: [facility] 04-15-2022 09:12-0400 Body weight 58.97 kg JC Limon MD Work Phone: [facility] 04-15-2022 09:12-0400 Diastolic blood pressure 87 mm[Hg] JC Limon MD Work Phone: [facility] 04-15-2022 09:12-0400 Heart rate 90 /min JC Limon MD Work Phone: [facility] 04-15-2022 09:12-0400 Respiratory rate 18 /min JC Limon MD Work Phone: [facility] 04-15-2022 09:12-0400 SaO2% (BldA) [Mass fraction] 100 % JC Limon MD Work Phone: [facility] 04-15-2022 09:12-0400 Systolic blood pressure 143 mm[Hg] JC Limon MD Work Phone: [facility] 04-08-2022 09:15-0400 Body temperature 97.39 [degF] JC Limon MD Work Phone: [facility] 04-08-2022 09:15-0400 Body weight 54.88 kg JC Limon MD Work Phone: [facility] 04-08-2022 09:15-0400 Diastolic blood pressure 79 mm[Hg] JC Limon MD Work Phone: [facility] 04-08-2022 09:15-0400 Heart rate 101 /min JC Limon MD Work Phone: [facility] 04-08-2022 09:15-0400 Respiratory rate 16 /min JC Limon MD Work Phone: [facility] 04-08-2022 09:15-0400 SaO2% (BldA) [Mass fraction] 100 % JC Limon MD Work Phone: [facility] 04-08-2022 09:15-0400 Systolic blood pressure 159 mm[Hg] JC Limon MD Work Phone: [facility] 04-01-2022 09:48-0400 Body temperature 97.39 [degF] JC Limon MD Work Phone: [facility] 04-01-2022 09:48-0400 Body weight 58.97 kg JC Limon MD Work Phone: [facility] 04-01-2022 09:48-0400 Heart rate 98 /min JC Limon MD Work Phone: [facility] 04-01-2022 09:48-0400 SaO2% (BldA) [Mass fraction] 100 % JC Limon MD Work Phone: [facility] 03-26-2022 08:50-0400 Body temperature 97.5 [degF] JC Limon MD Work Phone: [facility] 03-26-2022 08:50-0400 Body weight 58.97 kg JC Limon MD Work Phone: [facility] 03-26-2022 08:50-0400 Diastolic blood pressure 62 mm[Hg] JC Limon MD Work Phone: [facility] 03-26-2022 08:50-0400 Heart rate 92 /min JC Limon MD Work Phone: [facility] 03-26-2022 08:50-0400 Respiratory rate 16 /min JC Limon MD Work Phone: [facility] 03-26-2022 08:50-0400 SaO2% (BldA) [Mass fraction] 99 % JC Limon MD Work Phone: [facility] 03-26-2022 08:50-0400 Systolic blood pressure 114 mm[Hg] JC Limon MD Work Phone: [facility] 03-19-2022 09:20-0400 Body height 167.6 cm Patricia Miller APRN.FOUNTAIN CLERK Work Phone: [facility] 03-19-2022 09:20-0400 Body temperature 97.59 [degF] Patricia Miller APRN.FOUNTAIN CLERK Work Phone: [facility] 03-19-2022 09:20-0400 Body weight 59.51 kg Patricia Miller APRN.FOUNTAIN CLERK Work Phone: [facility] 03-19-2022 09:20-0400 Diastolic blood pressure 78 mm[Hg] Patricia Miller APRN.FOUNTAIN CLERK Work Phone: [facility] 03-19-2022 09:20-0400 Heart rate 90 /min Patricia Miller APRN.FOUNTAIN CLERK Work Phone: [facility] 03-19-2022 09:20-0400 Respiratory rate 16 /min Patricia Miller APRN.FOUNTAIN CLERK Work Phone: [facility] 03-19-2022 09:20-0400 SaO2% (BldA) [Mass fraction] 97 % Patricia Miller TOWER EXCAVATOR OPERATOR.FOUNTAIN CLERK Work Phone: [facility] 03-19-2022 09:20-0400 Systolic blood pressure 117 mm[Hg] Patricia Miller TOWER EXCAVATOR OPERATOR.FOUNTAIN CLERK Work Phone: [facility] 02-20-2022 14:20-0400 Body height 167.6 cm Patricia Miller TOWER EXCAVATOR OPERATOR.FOUNTAIN CLERK Work Phone: [facility] 02-20-2022 14:20-0400 Body temperature 97.2 [degF] Patricia Miller TOWER EXCAVATOR OPERATOR.FOUNTAIN CLERK Work Phone: [facility] 02-20-2022 14:20-0400 Body weight 59.88 kg Patricia Miller APRN.FOUNTAIN CLERK Work Phone: [facility] 02-20-2022 14:20-0400 Diastolic blood pressure 60 mm[Hg] Patricia Miller TOWER EXCAVATOR OPERATOR.FOUNTAIN CLERK Work Phone: [facility] 02-20-2022 14:20-0400 Heart rate 108 /min Patricia Miller APRN.FOUNTAIN CLERK Work Phone: [facility] 02-20-2022 14:20-0400 Respiratory rate 16 /min Patricia Miller APRN.FOUNTAIN CLERK Work Phone: [facility] 02-20-2022 14:20-0400 SaO2% (BldA) [Mass fraction] 98 % Patricia Miller APRN.FOUNTAIN CLERK Work Phone: [facility] 02-20-2022 14:20-0400 Systolic blood pressure 95 mm[Hg] Patricia Miller APRN.FOUNTAIN CLERK Work Phone: [facility] 02-07-2022 15:33-0400 Body height 167.6 cm Patricia Miller APRN.FOUNTAIN CLERK Work Phone: [facility] 02-07-2022 15:33-0400 Body temperature 97.59 [degF] Patricia Paul TOWER EXCAVATOR OPERATOR.FOUNTAIN CLERK Work Phone: [facility] 02-07-2022 15:33-0400 Body weight 59.42 kg Patricia Miller TOWER EXCAVATOR OPERATOR.FOUNTAIN CLERK Work Phone: [facility] 02-07-2022 15:33-0400 Diastolic blood pressure 59 mm[Hg] Patricia Miller TOWER EXCAVATOR OPERATOR.FOUNTAIN CLERK Work Phone: [facility] 02-07-2022 15:33-0400 Heart rate 110 /min Patricia Miller TOWER EXCAVATOR OPERATOR.FOUNTAIN CLERK Work Phone: [facility] 02-07-2022 15:33-0400 Respiratory rate 16 /min aPtricia Miller TOWER EXCAVATOR OPERATOR.FOUNTAIN CLERK Work Phone: [facility] 02-07-2022 15:33-0400 SaO2% (BldA) [Mass fraction] 98 % Patricia Miller TOWER EXCAVATOR OPERATOR.FOUNTAIN CLERK Work Phone: [facility] 02-07-2022 15:33-0400 Systolic blood pressure 110 mm[Hg] Patricia Miller TOWER EXCAVATOR OPERATOR.FOUNTAIN CLERK Work Phone: [facility] 01-30-2022 15:11-0400 Body temperature 96.69 [degF] JC Limon MD Work Phone: [facility] 01-30-2022 15:11-0400 Body weight 60.33 kg JC Limon MD Work Phone: [facility] 01-30-2022 15:11-0400 Diastolic blood pressure 67 mm[Hg] JC Limon MD Work Phone: [facility] 01-30-2022 15:11-0400 Heart rate 91 /min JC Limon MD Work Phone: [facility] 01-30-2022 15:11-0400 SaO2% (BldA) [Mass fraction] 100 % JC Limon MD Work Phone: [facility] 01-30-2022 15:11-0400 Systolic blood pressure 106 mm[Hg] JC Limon MD Work Phone: [facility] 01-29-2022 08:42-0400 Body height 167.6 cm Verito Whelan MD Work Phone: [facility] 01-29-2022 08:42-0400 Body temperature 97.39 [degF] Verito Whelan MD Work Phone: [facility] 01-29-2022 08:42-0400 Body weight 58.8 kg Verito Whelan MD Work Phone: [facility] 01-29-2022 08:42-0400 Diastolic blood pressure 64 mm[Hg] Verito Whelan MD Work Phone: [facility] 01-29-2022 08:42-0400 Heart rate 60 /min Verito Whelan MD Work Phone: [facility] 01-29-2022 08:42-0400 SaO2% (BldA) [Mass fraction] 94 % Verito Whelan MD Work Phone: [facility] 01-29-2022 08:42-0400 Systolic blood pressure 139 mm[Hg] Verito Whelan MD Work Phone: [facility] 01-22-2022 13:39-0400 Body height 168.8 cm Nina Grigsby MD Work Phone: [facility] 01-22-2022 13:39-0400 Body temperature 98.01 [degF] Nina Grigsby MD Work Phone: [facility] 01-22-2022 13:39-0400 Body weight 59.78 kg Nina Grigsby MD Work Phone: [facility] 01-22-2022 13:39-0400 Diastolic blood pressure 61 mm[Hg] Nina Grigsby MD Work Phone: [facility] 01-22-2022 13:39-0400 Heart rate 90 /min Nina Grigsby MD Work Phone: [facility] 01-22-2022 13:39-0400 Respiratory rate 18 /min Nina Grigsby MD Work Phone: [facility] 01-22-2022 13:39-0400 SaO2% (BldA) [Mass fraction] 100 % Nina Grigsby MD Work Phone: [facility] 01-22-2022 13:39-0400 Systolic blood pressure 110 mm[Hg] Nina Grigsby MD Work Phone: [facility] 01-14-2022 08:21-0400 Body height 168.8 cm Nina Grigsby MD Work Phone: [facility] 01-14-2022 08:21-0400 Body temperature 97.2 [degF] Nina Grigsby MD Work Phone: [facility] 01-14-2022 08:21-0400 Body weight 60.24 kg Nina Grigsby MD Work Phone: [facility] 01-14-2022 08:21-0400 Diastolic blood pressure 65 mm[Hg] Nina Grigsby MD Work Phone: [facility] 01-14-2022 08:21-0400 Heart rate 85 /min Nina Grigsby MD Work Phone: [facility] 01-14-2022 08:21-0400 Respiratory rate 16 /min Nina Grigsby MD Work Phone: [facility] 01-14-2022 08:21-0400 SaO2% (BldA) [Mass fraction] 99 % Nina Grigsby MD Work Phone: [facility] 01-14-2022 08:21-0400 Systolic blood pressure 123 mm[Hg] Nina Grigsby MD Work Phone: [facility] 12-24-2021 09:26-0400 Body height 168.8 cm Nina Grigsby MD Work Phone: [facility] 12-24-2021 09:26-0400 Body temperature 97.81 [degF] Nina Grigsby MD Work Phone: [facility] 12-24-2021 09:26-0400 Body weight 61.05 kg Nina Grigsby MD Work Phone: [facility] 12-24-2021 09:26-0400 Diastolic blood pressure 70 mm[Hg] Nina Grigsby MD Work Phone: [facility] 12-24-2021 09:26-0400 Heart rate 81 /min Nina Grigsby MD Work Phone: [facility] 12-24-2021 09:26-0400 Respiratory rate 16 /min Nina Grigsby MD Work Phone: [facility] 12-24-2021 09:26-0400 SaO2% (BldA) [Mass fraction] 100 % Nina Grigsby MD Work Phone: [facility] 12-24-2021 09:26-0400 Systolic blood pressure 120 mm[Hg] Nina Grigsby MD Work Phone: [facility] 12-03-2021 09:29-0400 Body height 168.8 cm Yusef Jessica PA-C Work Phone: [facility] 12-03-2021 09:29-0400 Body temperature 97.81 [degF] Yusef Jessica PA-C Work Phone: [facility] 12-03-2021 09:29-0400 Body weight 59.69 kg Yusef Jessica PA-C Work Phone: [facility] 12-03-2021 09:29-0400 Diastolic blood pressure 63 mm[Hg] Yusef Jessica PA-C Work Phone: [facility] 12-03-2021 09:29-0400 Heart rate 92 /min Yusef Jessica PA-C Work Phone: [facility] 12-03-2021 09:29-0400 Respiratory rate 16 /min Yusef Jessica PA-C Work Phone: [facility] 12-03-2021 09:29-0400 SaO2% (BldA) [Mass fraction] 98 % Yusef Jessica PA-C Work Phone: [facility] 12-03-2021 09:29-0400 Systolic blood pressure 125 mm[Hg] Yusef Pandya PA-C Work Phone: [facility] 11-30-2021 10:29-0400 Body height 168.8 cm Patricia Miller TOWER EXCAVATOR OPERATOR.FOUNTAIN CLERK Work Phone: [facility] 11-30-2021 10:29-0400 Body temperature 97.3 [degF] Patricia Miller TOWER EXCAVATOR OPERATOR.FOUNTAIN CLERK Work Phone: [facility] 11-30-2021 10:29-0400 Body weight 58.24 kg Patricia Miller TOWER EXCAVATOR OPERATOR.FOUNTAIN CLERK Work Phone: [facility] 11-30-2021 10:29-0400 Diastolic blood pressure 55 mm[Hg] Patricia Miller TOWER EXCAVATOR OPERATOR.FOUNTAIN CLERK Work Phone: [facility] 11-30-2021 10:29-0400 Heart rate 90 /min Patricia Miller TOWER EXCAVATOR OPERATOR.FOUNTAIN CLERK Work Phone: [facility] 11-30-2021 10:29-0400 Respiratory rate 16 /min Patricia Miller TOWER EXCAVATOR OPERATOR.FOUNTAIN CLERK Work Phone: [facility] 11-30-2021 10:29-0400 SaO2% (BldA) [Mass fraction] 98 % Patricia Miller TOWER EXCAVATOR OPERATOR.FOUNTAIN CLERK Work Phone: [facility] 11-30-2021 10:29-0400 Systolic blood pressure 95 mm[Hg] Patricia Miller TOWER EXCAVATOR OPERATOR.FOUNTAIN CLERK Work Phone: [facility] 11-26-2021 09:24-0400 Body height 168.8 cm Nina Grigsby MD Work Phone: [facility] 11-26-2021 09:24-0400 Body temperature 97.5 [degF] Nina Grigsby MD Work Phone: [facility] 11-26-2021 09:24-0400 Body weight 59.06 kg Nina Grigsby MD Work Phone: [facility] 11-26-2021 09:24-0400 Diastolic blood pressure 65 mm[Hg] Nina Grigsby MD Work Phone: [facility] 11-26-2021 09:24-0400 Heart rate 75 /min Nina Grigsby MD Work Phone: [facility] 11-26-2021 09:24-0400 Respiratory rate 16 /min Nina Grigsby MD Work Phone: [facility] 11-26-2021 09:24-0400 SaO2% (BldA) [Mass fraction] 100 % Nina Grigsby MD Work Phone: [facility] 11-26-2021 09:24-0400 Systolic blood pressure 111 mm[Hg] Nina Grigsby MD Work Phone: [facility] 11-21-2021 15:10-0400 Body temperature 98.6 [degF] Chair Jose Work Phone: [facility] 11-21-2021 15:10-0400 Diastolic blood pressure 65 mm[Hg] Chair Wallace Work Phone: [facility] 11-21-2021 15:10-0400 Heart rate 78 /min Chair Jose Work Phone: [facility] 11-21-2021 15:10-0400 Respiratory rate 16 /min Chair Wallace Work Phone: [facility] 11-21-2021 15:10-0400 SaO2% (BldA) [Mass fraction] 99 % Chair Wallace Work Phone: [facility] 11-21-2021 15:10-0400 Systolic blood pressure 119 mm[Hg] Chair Wallace Work Phone: [facility] 11-19-2021 10:41-0400 Diastolic blood pressure 71 mm[Hg] Chair Wallace Work Phone: [facility] 11-19-2021 10:41-0400 Systolic blood pressure 123 mm[Hg] Chair Wallace Work Phone: [facility] 11-19-2021 09:20-0400 Body temperature 98.4 [degF] Chair Wallace Work Phone: [facility] 11-19-2021 09:20-0400 Heart rate 90 /min Chair Wallace Work Phone: [facility] 11-19-2021 09:20-0400 Respiratory rate 18 /min Chair Wallace Work Phone: [facility] 11-19-2021 09:20-0400 SaO2% (BldA) [Mass fraction] 99 % Chair Wallace Work Phone: [facility] 11-16-2021 10:13-0400 Diastolic blood pressure 95 mm[Hg] Chair Wallace Work Phone: [facility] 11-16-2021 10:13-0400 Systolic blood pressure 170 mm[Hg] Chair Wallace Work Phone: [facility] 11-16-2021 09:02-0400 Body temperature 97.39 [degF] Chair Wallace Work Phone: [facility] 11-16-2021 09:02-0400 Heart rate 63 /min Chair Wallace Work Phone: [facility] 11-16-2021 09:02-0400 Respiratory rate 18 /min Chair Wallace Work Phone: [facility] 11-16-2021 09:02-0400 SaO2% (BldA) [Mass fraction] 99 % Chair Jose Work Phone: [facility] 11-15-2021 14:36-0400 Body temperature 97 [degF] Chair Wallace Work Phone: [facility] 11-15-2021 14:36-0400 Diastolic blood pressure 74 mm[Hg] Chair Wallace Work Phone: [facility] 11-15-2021 14:36-0400 Heart rate 65 /min Chair Wallace Work Phone: [facility] 11-15-2021 14:36-0400 Respiratory rate 18 /min Chair Wallace Work Phone: [facility] 11-15-2021 14:36-0400 SaO2% (BldA) [Mass fraction] 99 % Chair Jose Work Phone: [facility] 11-15-2021 14:36-0400 Systolic blood pressure 137 mm[Hg] Chair Wallace Work Phone: [facility] 11-13-2021 11:36-0400 Diastolic blood pressure 69 mm[Hg] Chair Wallace Work Phone: [facility] 11-13-2021 11:36-0400 Heart rate 70 /min Chair Jose Work Phone: [facility] 11-13-2021 11:36-0400 Respiratory rate 18 /min Chair Wallace Work Phone: [facility] 11-13-2021 11:36-0400 SaO2% (BldA) [Mass fraction] 99 % Chair Wallace Work Phone: [facility] 11-13-2021 11:36-0400 Systolic blood pressure 116 mm[Hg] Chair Jose Work Phone: [facility] 11-05-2021 08:52-0400 Body height 168.8 cm Patricia Miller APRN.FOUNTAIN CLERK Work Phone: [facility] 11-05-2021 08:52-0400 Body temperature 97.3 [degF] Patricia Miller APRN.FOUNTAIN CLERK Work Phone: [facility] 11-05-2021 08:52-0400 Body weight 58.6 kg Patricia Miller APRN.FOUNTAIN CLERK Work Phone: [facility] 11-05-2021 08:52-0400 Diastolic blood pressure 66 mm[Hg] Patricia Miller APRN.FOUNTAIN CLERK Work Phone: [facility] 11-05-2021 08:52-0400 Heart rate 93 /min Patricia Miller APRN.FOUNTAIN CLERK Work Phone: [facility] 11-05-2021 08:52-0400 Respiratory rate 16 /min Patricia Miller APRN.FOUNTAIN CLERK Work Phone: [facility] 11-05-2021 08:52-0400 SaO2% (BldA) [Mass fraction] 98 % Patricia Miller APRN.FOUNTAIN CLERK Work Phone: [facility] 11-05-2021 08:52-0400 Systolic blood pressure 115 mm[Hg] Patricia Miller APRN.FOUNTAIN CLERK Work Phone: [facility] 10-24-2021 14:18-0400 Body temperature 97.39 [degF] JC Limon MD Work Phone: [facility] 10-24-2021 14:18-0400 Body weight 58.51 kg JC Limon MD Work Phone: [facility] 10-24-2021 14:18-0400 Diastolic blood pressure 67 mm[Hg] JC Limon MD Work Phone: [facility] 10-24-2021 14:18-0400 Heart rate 101 /min JC Limon MD Work Phone: [facility] 10-24-2021 14:18-0400 Respiratory rate 16 /min JC Limon MD Work Phone: [facility] 10-24-2021 14:18-0400 SaO2% (BldA) [Mass fraction] 98 % JC Limon MD Work Phone: [facility] 10-24-2021 14:18-0400 Systolic blood pressure 111 mm[Hg] JC Limon MD Work Phone: [facility] 10-19-2021 09:58-0400 Body height 168.8 cm Renetta Ponce MD Work Phone: [facility] 10-19-2021 09:58-0400 Body temperature 97.59 [degF] Renetta Ponce MD Work Phone: [facility] 10-19-2021 09:58-0400 Body weight 58.33 kg Renetta Ponce MD Work Phone: [facility] 10-19-2021 09:58-0400 Diastolic blood pressure 72 mm[Hg] Renetta Ponce MD Work Phone: [facility] 10-19-2021 09:58-0400 Heart rate 98 /min Renetta Ponce MD Work Phone: [facility] 10-19-2021 09:58-0400 Respiratory rate 20 /min Renetta Ponce MD Work Phone: [facility] 10-19-2021 09:58-0400 SaO2% (BldA) [Mass fraction] 100 % Renetta Ponce MD Work Phone: [facility] 10-19-2021 09:58-0400 Systolic blood pressure 127 mm[Hg] Renetta Ponce MD Work Phone: [facility] 10-11-2021 15:44-0400 Body height 170.2 cm Aracelis Carrillo TOWER EXCAVATOR OPERATOR.FOUNTAIN CLERK Work Phone: [facility] 10-11-2021 15:44-0400 Body temperature 98.71 [degF] Aracelis Maygas TOWER EXCAVATOR OPERATOR.FOUNTAIN CLERK Work Phone: [facility] 10-11-2021 15:44-0400 Body weight 58.97 kg Aracelis Carrillo TOWER EXCAVATOR OPERATOR.FOUNTAIN CLERK Work Phone: [facility] 10-11-2021 15:44-0400 Diastolic blood pressure 58 mm[Hg] Aracelis Maygas TOWER EXCAVATOR OPERATOR.FOUNTAIN CLERK Work Phone: [facility] 10-11-2021 15:44-0400 Heart rate 85 /min Aracelis Carrillo TOWER EXCAVATOR OPERATOR.FOUNTAIN CLERK Work Phone: [facility] 10-11-2021 15:44-0400 SaO2% (BldA) [Mass fraction] 98 % Aracelis Carrillo TOWER EXCAVATOR OPERATOR.FOUNTAIN CLERK Work Phone: [facility] 10-11-2021 15:44-0400 Systolic blood pressure 99 mm[Hg] Aracelis Lalolaly HORNE.FOUNTAIN CLERK Work Phone: [facility] Encounters Encounter Date Encounter Type Care Provider Facility Start: 03-19-2024 End: 03-20-2024 ambulatory Jair Poemood Facility:[facility] Start: 03-19-2024 End: 03-20-2024 Evaluation and management of inpatient [facility] Work Phone: Start: 03-19-2024 End: 03-20-2024 observation encounter NON STAFF [facility] Work Phone: Start: 03-19-2024 End: 03-19-2024 Emergency department patient visit [facility] Work Phone: Start: 03-18-2024 End: 03-18-2024 Emergency department patient visit [facility] Work Phone: Start: 03-18-2024 End: [...] Start: 03-17-2024 End: 03-17-2024 ambulatory ESTELLA FISH Facility:[facility] Start: 03-17-2024 End: 03-17-2024 Nutrition therapy Estella Fish APRN.FOUNTAIN CLERK Work Phone: Palliative Medicine Comment on above: [...] 03-17-2024 End: 03-17-2024 ambulatory Enrique L Cate Facility:[facility] Start: 03-15-2024 End: 03-15-2024 Telephone encounter Denita Rai RN Work Phone: Hematology/Oncology Comment on above: Care Coordination (A ppointment Questions) Start: 03-15-2024 End: 03-15-2024 ambulatory MERARY LUCAS Facility:[facility] Start: 03-15-2024 End: 03-15-2024 Patient encounter procedure Merary Lucas MD Work Phone: Pulmonary Medicine Comment on above: Centrilobular emphys luke (HCC) (Primary Dx); Malignant neoplasm of upper lobe of left lung (HCC); Coronary artery disease involving [place] coronary artery of [place] heart without angina pectoris; PAD (peripheral artery [...] 03-01-2024 End: 03-01-2024 ambulatory Enrique L Cate Facility:[facility] Start: 02-24-2024 End: 03-10-2024 Telephone encounter [...] 02-07-2024 End: 02-07-2024 Emergency department patient visit [facility] Work Phone: Start: 02-06-2024 End: 02-06-2024 ambulatory Enrique Esposito Facility:[facility] Start: 02-04-2024 Refill Nina Grigsby MD Work Phone: [facility] Comment on above: Refill Request [...] Start: 02-03-2024 End: 02-03-2024 ambulatory YUSEF PANDYA Facility:[facility] Start: 01-27-2024 Telephone encounter Yusef Ramires Nayan springer PA-C Work Phone: Hematology/Oncology Comment on above: Lab Orders Start: 01-13-2024 Telephone encounter Estella Fish APRN.FOUNTAIN CLERK Work Phone: Palliative Medicine Comment on above: Care Coordination (P ain regimen review. ) Start: 01-12-2024 End: 01-12-2024 ambulatory [facility] Facility:[facility] Start: 01-09-2024 Telephone encounter Bernadine Rodriguez RN Work Phone: Hematology/Oncology Comment on above: Care Coordination (i nsomnia) Start: 01-08-2024 End: 01-08-2024 ambulatory [facility] Facility:[facility] Start: 12-26-2023 Telephone encounter Julieth Tapia RN [...] associated pain Start: 12-23-2023 End: 12-23-2023 ambulatory [facility] Facility:[facility] Start: 12-22-2023 End: 12-22-2023 Patient encounter procedure Jyoti Limon MD Work Phone: Radiation Oncology Comment on above: Malignant neoplasm o f upper lobe of left lung (HCC) (Primary Dx) Start: 12-22-2023 End: 12-22-2023 ambulatory Jyoti LIMON Facility:[facility] Start: 12-19-2023 End: 12-19-2023 ambulatory Jyoti LIMON Facility:[facility] Start: 12-18-2023 End: 12-18-2023 ambulatory Jyoti LIMON Facility:[facility] Start: 12-17-2023 End: 12-17-2023 ambulatory Jyoti LIMON Facility:[facility] Start: 12-16-2023 End: 12-16-2023 ambulatory Jyoti LIMON Facility:[facility] Start: 12-16-2023 End: 12-16-2023 Patient encounter procedure Jyoti Limon MD Work Phone: Radiation Oncology Comment on above: Malignant neoplasm o f upper lobe of left lung (HCC) (Primary Dx) Start: 12-16-2023 Telephone encounter Estella Fish APRN.CNP Work Phone: Radiation Oncology Comment on above: Patient Update; Medi cation Problem Start: 12-12-2023 End: 12-12-2023 ambulatory Jyoti LIMON Facility:[facility] Start: 12-11-2023 End: 12-11-2023 ambulatory Jyoti LIMON Facility:[facility] Start: 12-10-2023 End: 12-10-2023 ambulatory Jyoti LIMON Facility:[facility] Start: 12-10-2023 End: 12-10-2023 Patient encounter procedure [...] Note Treatment Planning Start: 12-03-2023 Telephone encounter Esetlla Fish APRN.FOUNTAIN CLERK Work Phone: Radiation Oncology Comment on above: Patient Update Start: 12-03-2023 End: 12-04-2023 ambulatory ENRIQUE ESPOSITO Facility:[facility] Start: 12-02-2023 End: 12-02-2023 ambulatory Chair 21 [...] Comment on above: Research (IRB [id number] Informed Consent) Start: 11-25-2023 End: 11-26-2023 ambulatory Chair 21 Jose Work Phone: Hematology/Oncology Comment on above: Malignant neoplasm o f upper lobe of left lung (HCC) (Primary Dx) Start: 11-24-2023 Telephone encounter Nina cutler MD Work Phone: Hematology/Oncology Comment on above: Orders Start: 11-21-2023 End: 11-21-2023 ambulatory ESTELLA FISH Facility:[facility] Start: 11-21-2023 End: 11-21-2023 Patient encounter procedure Estella Fish TOWER EXCAVATOR OPERATOR.FOUNTAIN CLERK Work Phone: Palliative Medicine Comment on above: [...] Start: 10-21-2023 End: 10-21-2023 ambulatory ENRIQUE ESPOSITO Facility:[facility] Start: 10-20-2023 End: 10-20-2023 Refill Nina Grigsby MD Work Phone: 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 Start: 09-22-2023 End: 09-22-2023 Nutrition therapy [...] Start: 09-15-2023 End: 09-15-2023 ambulatory NINA GRIGSBY Facility:[facility] Start: 09-02-2023 End: 09-02-2023 ambulatory Enrique L Cate Facility:[facility] Start: 08-26-2023 Telephone encounter Denita rushing [...] 08-20-2023 End: 08-20-2023 ambulatory Enrique L Cate Facility:[facility] Start: 08-15-2023 End: 08-15-2023 ambulatory ESTELLA FISH Facility:[facility] Start: 07-28-2023 End: 07-28-2023 ambulatory PATRICIA MILLER Facility:[facility] Start: 07-23-2023 End: 07-23-2023 ambulatory Enrique L Cate Facility:[facility] Start: 07-09-2023 End: 07-09-2023 ambulatory Enrique Esposito Facility: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); Tonsillar mass; Primary hypertension; Centrilobular emphysema (HCC); Coronary artery disease involving [place] coronary artery of [place] heart without angina pectoris; Hypothyroidism due to medication; Cancer related pain Start: 06-24-2023 End: 06-24-2023 ambulatory CHRISTINA AZUL Facility:[facility] Start: 06-23-2023 End: 06-23-2023 ambulatory Jyoti LIMON Facility:[facility] Start: 06-20-2023 End: 06-20-2023 ambulatory CHRISTINA AZUL Facility:[facility] Start: 06-19-2023 End: 06-19-2023 ambulatory CHRISTINA AZUL Facility:[facility] Start: 06-18-2023 End: 06-18-2023 ambulatory CHRISTINA AZUL Facility:[facility] Start: 06-13-2023 End: 06-13-2023 ambulatory ESTELLA FISH Facility:[facility] Start: 06-13-2023 End: 06-13-2023 Patient encounter procedure Estella Fish TOWER EXCAVATOR OPERATOR.FOUNTAIN CLERK Work Phone: Palliative Medicine Comment on above: Palliative care by s pecialist (Primary Dx); 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); Cancer related pain; Opioid contract exists; Insomnia due to medical condition; Anorexia; Protein-calorie malnutrition, unspecified severity (HCC); Nausea Start: 06-10-2023 End: 06-10-2023 Patient encounter procedure [facility] Comment on above: Oropharnyx cancer (H CC) (Primary Dx) Start: 06-10-2023 Radiation Oncology Note Jyoti Limon MD Work Phone: Radiation Oncology Comment on above: Simulation Note Treatment Planning Start: 06-10-2023 End: 06-10-2023 ambulatory Jyoti LIMON Facility:[facility] Start: 06-03-2023 Refill Nina Grigsby MD Work Phone: Hematology/Oncology Comment on above: Erroneous encounter- disregard Start: 06-02-2023 End: 06-02-2023 Patient encounter procedure Patricia Miller TOWER EXCAVATOR OPERATOR.FOUNTAIN CLERK Work Phone: [facility]SE Start: 06-02-2023 End: 06-02-2023 ambulatory Patricia Miller TOWER EXCAVATOR OPERATOR.FOUNTAIN CLERK Work Phone: Hematology/Oncology Comment on above: Malignant neoplasm o f upper lobe of left lung (HCC) (Primary Dx); Centrilobular emphysema (HCC); CAD in [place] artery; PVD (peripheral vascular disease) (HCC); Cancer related pain; Tonsillar mass; Abnormal LFTs; Anxiety; Hypothyroidism due to medication Start: 05-30-2023 End: 05-30-2023 Patient encounter procedure Jyoti Limon MD Work Phone: Radiation Oncology Comment on above: Oropharnyx cancer (H CC) (Primary Dx) Start: 05-30-2023 End: 05-30-2023 ambulatory CRHISTINA AZUL Facility:[facility] Start: 05-27-2023 End: 05-27-2023 ambulatory NINA GRIGSBY Facility:[facility] Start: 05-27-2023 End: 05-27-2023 Patient encounter procedure [...] End: 05-16-2023 Patient encounter procedure Estella Fish TOWER EXCAVATOR OPERATOR.FOUNTAIN CLERK Work Phone: Palliative Medicine Comment on above: Palliative care by s pecialist (Primary Dx); Neuropathy due to chemotherapeutic drug (HCC) ; Nausea; Anorexia; Protein-calorie malnutrition, unspecified severity (HCC); Anxiety; Insomnia due to medical condition Refill Request Start: 05-16-2023 End: 05-16-2023 ambulatory ESTELLA FISH Facility:[facility] Start: 05-15-2023 Telephone encounter Denita rushing RN Work Phone: Hematology/Oncology Comment on above: Care Coordination (T SH Results) Care Coordination (P ain; Constipation) Start: 05-13-2023 Telephone encounter Analisa Villatoro [facility] Work Phone: Hematology/Oncology Comment on above: Treatment Planning Refill Request Start: 05-13-2023 End: 05-13-2023 ambulatory [facility] Facility:[facility] Start: 05-12-2023 End: 05-12-2023 ambulatory [facility] Facility:[facility] Start: 05-08-2023 Telephone encounter Denita rushing RN Work Phone: Hematology/Oncology Comment on above: Care Coordination (S ore Throat) Start: 05-05-2023 Refill Analisa Victor brielle [facility] Work Phone: [facility] Comment on above: Refill Request Start: 04-23-2023 Telephone encounter Denita rushing RN Work Phone: Hematology/Oncology Comment on above: Care Coordination (T SH Results) Start: 04-22-2023 End: 04-23-2023 ambulatory NINA GRIGSBY Facility:[facility] Start: 04-22-2023 End: 04-22-2023 ambulatory CHRISTINA AZUL Facility:[facility] Start: 04-16-2023 End: 04-16-2023 ambulatory Enrique Esposito Facility:[facility] Start: 04-08-2023 Telephone encounter Denita rushing RN Work Phone: Hematology/Oncology Comment on above: Care Coordination (V accine Question) Start: 04-01-2023 End: 04-01-2023 Patient encounter procedure Patricia Miller TOWER EXCAVATOR OPERATOR.FOUNTAIN CLERK Work Phone: JOSE Start: 04-01-2023 End: 04-01-2023 ambulatory Patricia Miller TOWER EXCAVATOR OPERATOR.FOUNTAIN CLERK Work Phone: Hematology/Oncology Comment on above: Primary [...] Appointment Start: 01-07-2023 Telephone encounter Patricia davidson APRN.FOUNTAIN CLERK [facility] [...] patient visit MD Christina Azul Work Phone: [facility] Work Phone: Start: 01-03-2023 Telephone encounter [...] encounter procedure Patricia Paul ARBOLEDA Work Phone: [facility] Start: 11-21-2022 Telephone encounter Nina cutler MD [...] encounter procedure Jyoti Limon MD Work Phone: [facility] Start: 11-12-2022 Radiation Oncology Note Jyoti Limon [...] encounter procedure Nina Grigsby MD Work Phone: [employer] Start: 10-10-2022 End: 10-10-2022 ambulatory LOVE ALBERTS Facility: Start: 09-23-2022 End: 09-23-2022 ambulatory Nina Grigsby MD Work Phone: Hematology/Oncology Comment on above: Malignant neoplasm o f upper lobe of left lung (HCC) (Primary Dx); Lung nodules; Centrilobular emphysema (HCC) Start: 09-23-2022 End: 09-23-2022 Patient encounter procedure Nina Grigsby MD Work Phone: JOSE Start: 09-20-2022 End: 09-20-2022 ambulatory [facility] Start: 09-19-2022 End: 09-20-[address] JONATHAN CHANEY Facility:[facility] Start: 09-18-2022 End: 09-18-2022 ambulatory [facility] Start: 09-11-2022 Telephone encounter Denita rushing [...] Start: 06-25-2022 End: 06-25-2022 ambulatory Patricia Miller TOWER EXCAVATOR OPERATOR.FOUNTAIN CLERK Work Phone: Hematology/Oncology Comment on above: Malignant neoplasm o f upper lobe of left lung (HCC) (Primary Dx); Anemia due to antineoplastic chemotherapy Start: 06-25-2022 End: 06-25-2022 Patient encounter procedure Patricia Miller APRN.FOUNTAIN CLERK Work Phone: JOSE Comment on above: Thyroid [...] Start: 03-19-2022 End: 03-19-2022 ambulatory Patricia Miller APRN.FOUNTAIN CLERK Work Phone: Hematology/Oncology Comment on above: Malignant neoplasm o f upper lobe of left lung (HCC) (Primary Dx); Anemia due to antineoplastic chemotherapy; Skin infection; Rash Start: 03-19-2022 End: 03-19-2022 Patient encounter procedure Patricia Miller APRN.FOUNTAIN CLERK Work Phone: JOSE Start: 03-14-2022 End: 03-14-2022 Patient encounter procedure Jyoti Limon MD Work Phone: [facility] Comment on above: Malignant neoplasm o f upper lobe of left lung (HCC) (Primary Dx) Start: 03-14-2022 Radiation Oncology Note Jyoti Limon MD Work Phone: Radiation Oncology Comment on above: Simulation Note Treatment Planning Start: 02-27-2022 End: 02-27-2022 Departed Referred AMRITA Swann Work Phone: [facility] [place] Start: 02-26-2022 Telephone encounter Denita rushing RN Work Phone: Hematology/Oncology Comment on above: Care Coordination (R shankar) Start: 02-22-2022 Refill Verito Whelan MD Work Phone: Pulmonary Medicine Comment on above: Refill Request Start: 02-20-2022 End: 02-20-2022 ambulatory Patricia Miller APRN.FOUNTAIN CLERK Work Phone: Hematology/Oncology Comment on above: Malignant neoplasm o f upper lobe of left lung (HCC) (Primary Dx); Anemia due to antineoplastic chemotherapy; Acute kidney injury (HCC); Skin infection Start: 02-20-2022 End: 02-20-2022 Patient encounter procedure Patricia Miller APRN.FOUNTAIN CLERK Work Phone: JOSE Start: 02-11-2022 Telephone encounter Denita rushing RN Work Phone: Hematology/Oncology Comment on above: Care Coordination (R shankar) Start: 02-08-2022 Patient encounter procedure [facility] Provider [facility] Department Start: 02-08-2022 End: 02-08-[address] PATRICIA MILLER Facility:[facility] Start: 02-07-2022 End: 02-08-[address] PATRICIA MILLER Facility:[facility] Start: 02-07-2022 End: 02-07-2022 ambulatory Patricia Miller APRN.FOUNTAIN CLERK Work Phone: Hematology/Oncology Comment on above: Malignant neoplasm o f upper lobe of left lung (HCC) (Primary Dx); Anemia due to antineoplastic chemotherapy; Acute kidney injury (HCC); Skin infection Start: 02-07-2022 End: 02-07-2022 Patient encounter procedure Patricia Miller APRN.FOUNTAIN CLERK Work Phone: JOSE Start: 02-07-2022 Telephone encounter Patricia davidson APRN.FOUNTAIN CLERK Work Phone: Cancer [facility] Comment on above: Transfusion Start: 01-30-2022 End: [...] Fct Lab Main 11 Other Phone: [facility] Comment on above: Chronic obstructive pulmonary [...] encounter procedure Nina Grigsby MD Work Phone: [employer] Start: 01-14-2022 Telephone encounter Nina cutler MD Work Phone: Hematology/Oncology Comment on above: Lab Orders Start: 01-14-2022 End: 01-14-2022 ambulatory Nina Grigsby MD Work Phone: Hematology/Oncology Comment on above: Malignant neoplasm o f upper lobe of left lung (HCC) (Primary Dx); Anemia due to antineoplastic chemotherapy; Skin infection Start: 01-14-2022 End: 01-14-2022 Patient encounter procedure Nina Grigsby MD Work Phone: [employer] Start: 01-09-2022 Telephone encounter Nina cutler MD [...] encounter Patricia davidson APRN.CNP Work Phone: Cancer [facility] Comment on above: Future Appointment Lab Orders Start: 11-30-2021 End: 11-30-2021 ambulatory Patricia Miller APRN.FOUNTAIN CLERK Work Phone: Hematology/Oncology Comment on above: Malignant neoplasm o f upper lobe of left lung (HCC) (Primary Dx); Acute kidney injury (HCC) Malignant neoplasm o f upper lobe of left lung (HCC) (Primary Dx) Start: 11-30-2021 End: 11-30-2021 Patient encounter procedure Patricia Miller APRN.FOUNTAIN CLERK Work Phone: JOSE Start: 11-29-2021 Telephone encounter [...] Start: 11-05-2021 End: 11-05-2021 ambulatory Patricia Miller APRN.FOUNTAIN CLERK Work Phone: Hematology/Oncology Comment on above: Malignant neoplasm o f upper lobe of left lung (HCC) (Primary Dx) Start: 11-05-2021 End: 11-05-2021 Patient encounter procedure Patricia Miller APRN.FOUNTAIN CLERK Work Phone: JOSE Start: 10-31-2021 Patient encounter procedure [facility] Provider [facility] Department Start: 10-31-2021 End: 10-31-2021 Subsequent hospital visit by physician Jenelle [facility] [place] (I-Stat/1.5t) Radiology Comment on above: Malignant neoplasm o f upper lobe of left lung (HCC) [C34.12] Start: 10-30-2021 Telephone encounter Denita rushing RN Work Phone: Hematology/Oncology Comment on above: Care Coordination (R esearch Trial) Lab Orders Start: 10-29-2021 ambulatory Katlin Omer [facility] Work Phone: Hematology/Oncology Comment on above: First [...] procedure Renetta Ponce MD Work Phone: [facility] Start: 10-11-2021 End: 10-11-2021 Patient encounter procedure Aracelis Carrillo APRUriahFOUNTAIN CLERK Work Phone: [facility] Comment on above: [...] End: 02-24-2019 Patient encounter procedure PROVIDER UNKNOWN Facility:[facility] Procedures Date Procedure Procedure Detail Performing [...] Adult depression scr eening assessment Patricia Paul TOWER EXCAVATOR OPERATOR.FOUNTAIN CLERK Work Phone: Start: 01-29-2022 Brncdilat rspse spmt ry pre&post-brncdilat admn Verito Whelan MD Work Phone: Start: 01-29-2022 Radiologic exam ches t 2 views Aracelis Orimarguerite TOWER EXCAVATOR OPERATOR.FOUNTAIN CLERK Work Phone: Start: 12-11-2021 Adult depression scr eening assessment Verito Whelan MD Work Phone: Start: 12-07-2021 PSA screening [facility] MARTINE[facility] Comment on above: Performed By: #### P SAD #### [facility] [address] [place] [address] Dr. Usama Hobbs Start: 11-21-2021 Basic metabolic [...] imaging for ct attenuation whole body Marianne Feilds MD Work Phone: Aerobic microbial culture ASHA Swann Work Phone: Plan of Treatment Date Care Activity Detail Author Start: 10-13-2030 Urine microalbumin profile [facility] Start: 03-18-2027 Diabetes Screening Diabetes Screenin [facility] Start: 02-02-2027 Diabetes Screening Diabetes Screenin g [facility] Start: 12-22-2026 Diabetes Screening Diabetes Screenin g [facility] Start: 12-07-2026 PROSTATE CANCER SCREENING DISCUSSION PROSTATE CANCER SCREENING DISCUSSION [facility] Start: 12-07-2026 Prostate specific antigen measurement Prostate Cancer Screening Discussion [facility] Start: 11-24-2026 Diabetes Screening Diabetes Screenin jyoti [facility] Start: 11-03-2026 Diabetes Screening Diabetes Screenin g [facility] Start: 10-19-2026 Diabetes Screening Diabetes Screenin jyoti [facility] Start: 09-21-2026 Diabetes Screening Diabetes Screenin g [facility] Start: 08-25-2026 Diabetes Screening Diabetes Screenin g [facility] Start: 06-30-2026 Diabetes Screening Diabetes Screenin jyoti [facility] Start: 06-02-2026 Diabetes Screening Diabetes Screenin jyoti [facility] Start: 05-13-2026 Diabetes Screening Diabetes Screenin jyoti [facility] Start: 04-22-2026 Diabetes Screening Diabetes Screenin jyoti [facility] Start: 04-01-2026 Diabetes Screening Diabetes Screenin jyoti [facility] Start: 03-11-2026 DIABETES SCREEN DIABETES SCREEN [facility] Start: 02-18-2026 DIABETES SCREEN DIABETES SCREEN [facility] Start: 01-28-2026 DIABETES SCREEN DIABETES SCREEN [facility] Start: 01-07-2026 DIABETES SCREEN DIABETES SCREEN [facility] Start: 12-27-2025 DIABETES SCREEN DIABETES SCREEN [facility] Start: 12-17-2025 DIABETES SCREEN DIABETES SCREEN [facility] Start: 11-25-2025 DIABETES SCREEN DIABETES SCREEN [facility] Start: 11-18-2025 DIABETES SCREEN DIABETES SCREEN [facility] Start: 11-11-2025 DIABETES SCREEN DIABETES SCREEN [facility] Start: 10-31-2025 DIABETES SCREEN DIABETES SCREEN [facility] Start: 10-21-2025 DIABETES SCREEN DIABETES SCREEN [facility] Start: 09-23-2025 DIABETES SCREEN DIABETES SCREEN [facility] Start: 08-20-2025 DIABETES SCREEN DIABETES SCREEN [facility] Start: 06-25-2025 DIABETES SCREEN DIABETES SCREEN [facility] Start: 04-30-2025 DIABETES SCREEN DIABETES SCREEN [facility] Start: 03-19-2025 DIABETES SCREEN DIABETES SCREEN [facility] Start: 03-15-2025 BP Controlled (<130/80) BP Controlle d (<130/80) [facility] Start: 02-20-2025 DIABETES SCREEN DIABETES SCREEN [facility] Start: 02-07-2025 DIABETES SCREEN DIABETES SCREEN [facility] Start: 02-02-2025 BP Controlled (<130/80) BP Controlle d (<130/80) [facility] Start: 01-22-2025 DIABETES SCREEN DIABETES SCREEN [facility] Start: 01-14-2025 DIABETES SCREEN DIABETES SCREEN [facility] Start: 01-03-2025 DIABETES SCREEN DIABETES SCREEN [facility] Start: 12-24-2024 DIABETES SCREEN DIABETES SCREEN [facility] Start: 12-11-2024 DIABETES SCREEN DIABETES SCREEN [facility] Start: 12-03-2024 DIABETES SCREEN DIABETES SCREEN [facility] Start: 11-30-2024 DIABETES SCREEN DIABETES SCREEN [facility] Start: 11-26-2024 DIABETES SCREEN DIABETES SCREEN [facility] Start: 11-21-2024 DIABETES SCREEN DIABETES SCREEN [facility] Start: 11-19-2024 DIABETES SCREEN DIABETES SCREEN [facility] Start: 11-16-2024 DIABETES SCREEN DIABETES SCREEN [facility] Start: 11-14-2024 DIABETES SCREEN DIABETES SCREEN [facility] Start: 11-12-2024 DIABETES SCREEN DIABETES SCREEN [facility] Start: 11-05-2024 DIABETES SCREEN DIABETES SCREEN [facility] Start: 10-04-2024 DIABETES SCREEN DIABETES SCREEN [facility] Start: 06-30-2024 BP Controlled (<130/80) BP Controlle d (<130/80) [facility] Start: 05-05-2024 End: 05-05-2024 Patient encounter procedure Pulmonary Medicine Comment on above: Centrilobular emphys luke (HCC) [J43.2] Start: 04-20-2024 ambulatory Ambulatory Facility:[facility] Start: 04-14-2024 End: 04-14-2024 Patient encounter procedure 04/14/2024 10:30 AM EDT Office Visit Palliative Medicine [address] [place] [address] [place] [address] Estella Fish, TOWER EXCAVATOR OPERATOR.FOUNTAIN CLERK [address] [place] [address] 4 week follow up-in person Palliative Medicine Comment on above: 4 week follow up-in person Start: 04-12-2024 ambulatory Ambulatory Facility:[facility] Start: 03-23-2024 Magnetic resonance angiography of head without contrast MR angio MR brain w/o [facility] Start: 03-21-2024 Covid-19 Vaccine () Covid-19 Vaccine () [facility] Start: 03-21-2024 Influenza vaccination [facility] Start: 03-20-2024 [facility] Start: 03-19-2024 Referral to neurologist [facility] Start: 03-19-2024 Hospital admission [facility] Start: 03-18-2024 Plain chest X-ray XR chest 2V* [facility] Start: 03-18-2024 [facility] Start: 03-18-2024 End: 03-18-2024 Follow-up encounter 03/18/2024 1:30 PM EDT Visit (SP) Office Hematology/Oncology [address] [address] Nina Grigsby MD [address] [place] [address] 6 week follow up Hematology/Oncology Comment on above: 6 week follow up Start: 03-18-2024 End: 03-18-2024 Patient encounter procedure [facility] Comment on above: 6 week follow up PRINT SCHEDULE Start: 03-17-2024 End: 03-17-2024 Patient encounter procedure 03/17/2024 10:30 AM EDT Office Visit Palliative Medicine [address] [place] [address] Estella Fish, TOWER EXCAVATOR OPERATOR.FOUNTAIN CLERK [address] [place] [address] 3 month follow up Palliative Medicine Comment on above: 3 month follow up Start: 03-15-2024 End: 03-15-2024 Patient encounter procedure 03/15/2024 1:00 PM EDT Office Visit Pulmonary Medicine [address] [place] [address] [place] [address] [place] [address] *jose called and requested appointment Pulmonary Medicine Comment on above: *jose called and requested appointment Start: 03-09-2024 End: 03-09-2024 Patient encounter procedure 03/09/2024 9:00 AM EDT Appointment Radiology Pet CT [address] [place] [address] Comment on above: PET Start: 02-27-2024 End: 02-27-2024 Patient encounter procedure 02/27/2024 10:30 AM EDT Office Visit Palliative Medicine [address] [place] [address] Estella Fish, TOWER EXCAVATOR OPERATOR.FOUNTAIN CLERK [address] [place] [address] 3 month follow up Palliative Medicine Comment on above: 3 month follow up Start: 02-07-2024 Plain chest X-ray XR chest 2V* [facility] Start: 02-07-2024 XR Chest 2 Views [facility] Start: 02-03-2024 End: 05-04-2024 CBC W Auto Differential panel - Blood COMPLETE BLOOD COUNT AND DIFFERENTIAL Lab Routine 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 Expected: 02/03/2024, Expires: 05/04/2024 [facility] Comment on above: Expected: 02/03/2024 , Expires: 05/04/2024 Start: 02-03-2024 End: 05-04-2024 Comprehensive metabolic 2000 panel - Serum or Plasma COMPREHENSIVE METABOLIC PANEL Lab Routine 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 Expected: 02/03/2024, Expires: 05/04/2024 [facility] Work Phone: Comment on above: Expected: 02/03/2024 , Expires: 05/04/2024 Start: 02-03-2024 End: 05-04-2024 Thyrotropin [Units/volume] in Serum or Plasma THYROID STIMULATING HORMONE Lab Routine 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 Expected: 02/03/2024, Expires: 05/04/2024 [facility] Comment on above: Expected: 02/03/2024 , Expires: 05/04/2024 Start: 02-03-2024 End: 02-03-2024 Follow-up encounter 02/03/2024 11:30 AM EDT Visit (SP) Office Hematology/Oncology [address] [address] Yusef Pandya PA-C [address] [place] [address] 6 week follow up Hematology/Oncology Comment on above: 6 week follow up Start: 02-03-2024 End: 02-03-2024 Patient encounter procedure 02/03/2024 11:15 AM EDT Office Visit [facility] [address] [place] [address] 6 week follow up [facility] Comment on above: 6 week follow up Start: 01-29-2024 BP CONTROLLED (<130/80) BP CONTROLLE D (<130/80) [facility] Start: 01-27-2024 End: 04-27-2024 CBC W Auto Differential panel - Blood COMPLETE BLOOD COUNT AND DIFFERENTIAL Lab Routine 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) Expected: 01/27/2024, Expires: 04/27/2024 [facility] Comment on above: Expected: 01/27/2024 , Expires: 04/27/2024 Start: 01-27-2024 End: 04-27-2024 Comprehensive metabolic 2000 panel - Serum or Plasma COMPREHENSIVE METABOLIC PANEL Lab Routine 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) Expected: 01/27/2024, Expires: 04/27/2024 [facility] Work Phone: Comment on above: Expected: 01/27/2024 , Expires: 04/27/2024 Start: 12-30-2023 End: 12-30-2023 ambulatory 12/30/2023 11:30 AM EDT Visit (SP) Office Hematology/Oncology [address] [address] Yunior Thacker LMT [address] [address] Massage pt in the lobby Hematology/Oncology Comment on above: Massage pt in the lobby Start: 12-24-2023 End: 12-24-2023 Patient encounter procedure Radiation Oncology Comment on above: Chest wall Chest wall- do compl etion tasks for both areas Start: 12-23-2023 End: 12-23-2023 Follow-up encounter 12/23/2023 2:45 PM EDT Visit (SP) Office Hematology/Oncology [address] [place] [address] Nina Grigsby MD [address] [address] 3 week [address] up after Dr. Fay garces and XRT Hematology/Oncology Comment on above: 3 week follow up aft er Dr. Fay garces and XRT Start: 12-23-2023 End: 12-23-2023 Patient encounter procedure [facility] Laboratory Comment on above: 3 week follow up aft er Dr. Limon consult and XRT Chest wall- grigsby\T \ labs 2:30 Start: 12-23-2023 End: 12-23-2023 Patient encounter procedure 12/23/2023 10:15 AM EDT Appointment Radiation Oncology [address] [place] [address] Chest wall Radiation Oncology Comment on above: Chest wall Start: 12-22-2023 End: 12-22-2023 Patient encounter procedure Radiation Oncology Comment on above: Chest wall Location: [facility] Start: 12-19-2023 End: 12-19-2023 Patient encounter procedure 12/19/2023 10:45 AM EDT Appointment Radiation Oncology [address] [place] [address] Chest wall Radiation Oncology Comment on above: Chest wall Start: 12-18-2023 BP CONTROLLED (<130/80) BP CONTROLLE D (<130/80) [facility] Start: 12-18-2023 End: 12-18-2023 Patient encounter procedure 12/18/2023 2:00 PM EDT Appointment Radiation Oncology [address] [place] [address] Chest wall Radiation Oncology Comment on above: Chest wall Start: 12-17-2023 End: 12-17-2023 Patient encounter procedure 12/17/2023 12:15 PM EDT Appointment Radiation Oncology [address] [place] [address] Neck and Chest wall Radiation Oncology Comment [...] BP CONTROLLED (<130/80) BP CONTROLLE D (<130/80) [facility] Start: 11-25-2023 End: 02-24-2024 CBC W Auto Differential panel - Blood COMPLETE BLOOD COUNT AND DIFFERENTIAL Lab Routine Malignant neoplasm of upper lobe of left lung (HCC) Expected: 11/25/2023 (Approximate), Expires: 02/24/2024 [facility] Work Phone: Comment on above: Expected: 11/25/2023 (Approximate), Expires: 02/24/2024 Start: 11-25-2023 End: 02-24-2024 Comprehensive metabolic 2000 panel - Serum or Plasma COMPREHENSIVE METABOLIC PANEL Lab Routine Malignant neoplasm of upper lobe of left lung (HCC) Expected: 11/25/2023 (Approximate), Expires: 02/24/2024 [facility] Comment on above: Expected: 11/25/2023 (Approximate), Expires: 02/24/2024 Start: 11-25-2023 End: 02-24-2024 Thyrotropin [Units/volume] in Serum or Plasma THYROID STIMULATING HORMONE Lab Routine Malignant neoplasm of upper lobe of left lung (HCC) Expected: 11/25/2023 (Approximate), Expires: 02/24/2024 [facility] Comment on above: Expected: 11/25/2023 (Approximate), Expires: 02/24/2024 Start: 11-25-2023 End: 11-25-2023 Patient encounter procedure 11/25/2023 10:45 AM EDT Appointment Radiology Pet CT [address] [place] [address] Comment on above: PET Start: 11-21-2023 End: 11-21-2023 Patient encounter procedure 11/21/2023 10:00 AM EDT Office Visit Palliative Medicine [address] [place] [address] Estella Fish, TOWER EXCAVATOR OPERATOR.FOUNTAIN CLERK [address] [place] [address] 3 month follow up Palliative Medicine Comment on above: 3 month follow up Start: 11-19-2023 BP CONTROLLED (<130/80) BP CONTROLLE D (<130/80) [facility] Start: 11-01-2023 BP CONTROLLED (<130/80) BP CONTROLLE D (<130/80) [facility] Start: 10-29-2023 BP CONTROLLED (<130/80) BP CONTROLLE D (<130/80) [facility] Start: 10-22-2023 BP CONTROLLED (<130/80) BP CONTROLLE D (<130/80) [facility] Start: 09-24-2023 BP CONTROLLED (<130/80) BP CONTROLLE D (<130/80) [facility] Start: 08-25-2023 End: 11-24-2023 T4/FTI/T4U [facility] Work Phone: Comment on above: Expected: 08/25/2023 , Expires: 11/24/2023 Start: 08-25-2023 End: 11-24-2023 Thyrotropin [Units/volume] in Serum or Plasma [facility] Work Phone: Comment on above: Expected: 08/25/2023 , Expires: 11/24/2023 Start: 08-20-2023 BP CONTROLLED (<130/80) BP CONTROLLE D (<130/80) [facility] Start: 07-21-2023 Advance Directive Discussion Advance Directive Discussion [facility] Start: 07-21-2023 Behavioral Health Screening Behavioral Health Screening [facility] Start: 07-21-2023 Depression Assessment Depression Ass essment [facility] Start: 07-01-2023 End: 09-30-2023 CBC W Auto Differential panel - Blood CBC + DIFF Lab Routine Malignant neoplasm of upper lobe of left lung (HCC) Centrilobular emphysema (HCC) CAD in [place] artery PVD (peripheral vascular disease) (HCC) Cancer related pain Tonsillar mass Abnormal LFTs Anxiety Hypothyroidism due to medication Expected: 07/01/2023, Expires: 09/30/2023 [facility] Work Phone: Comment on above: Expected: 07/01/2023 , Expires: 09/30/2023 Start: 07-01-2023 End: 09-30-2023 Comprehensive metabolic 2000 panel - Serum or Plasma COMP METABOLIC PANEL Lab Routine Malignant neoplasm of upper lobe of left lung (HCC) Centrilobular emphysema (HCC) CAD in [place] artery PVD (peripheral vascular disease) (HCC) Cancer related pain Tonsillar mass Abnormal LFTs Anxiety Hypothyroidism due to medication Expected: 07/01/2023, Expires: 09/30/2023 [facility] Work Phone: Comment on above: Expected: 07/01/2023 , Expires: 09/30/2023 Start: 07-01-2023 End: 09-30-2023 Thyrotropin [Units/volume] in Serum or Plasma TSH BLD Lab Routine Malignant neoplasm of upper lobe of left lung (HCC) Centrilobular emphysema (HCC) CAD in [place] artery PVD (peripheral vascular disease) (HCC) Cancer related pain Tonsillar mass Abnormal LFTs Anxiety Hypothyroidism due to medication Expected: 07/01/2023, Expires: 09/30/2023 [facility] Work Phone: Comment on above: Expected: 07/01/2023 , Expires: 09/30/2023 Start: 06-13-2023 End: 09-12-2023 TOX SCREEN ROUT UR TOX SCREEN ROUT UR Lab Routine Opioid contract exists Expected: 06/13/2023, Expires: 09/12/2023 [facility] Work Phone: Comment on above: Expected: 06/13/2023 , Expires: 09/12/2023 Start: 06-11-2023 BP CONTROLLED (<130/80) BP CONTROLLE D (<130/80) [facility] Start: 06-02-2023 End: 09-01-2023 CBC W Auto Differential panel - Blood CBC + DIFF Lab Routine Malignant neoplasm of upper lobe of left lung (HCC) Expected: 06/02/2023, Expires: 09/01/2023 [facility] Work Phone: Comment on above: Expected: 06/02/2023 , Expires: 09/01/2023 Start: 04-22-2023 End: 06-22-2023 CBC W Auto Differential panel - Blood CBC + DIFF Lab Routine 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) Cancer related pain Abnormal LFTs Anxiety Centrilobular emphysema (HCC) PVD (peripheral vascular disease) (HCC) Anemia due to antineoplastic chemotherapy Skin rash Expected: 04/22/2023, Expires: 06/22/2023 [facility] Work Phone: Comment on above: Expected: [...] chemotherapy Skin rash Expected: 04/22/2023, Expires: 06/22/2023 [facility] Work Phone: Comment on above: Expected: 04/22/2023 , Expires: 06/22/2023 Start: 04-22-2023 End: 06-22-2023 Thyrotropin [Units/volume] in Serum or Plasma TSH BLD Lab Routine 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) Cancer related pain Abnormal LFTs Anxiety Centrilobular emphysema (HCC) PVD (peripheral vascular disease) (HCC) Anemia due to antineoplastic chemotherapy Skin rash Expected: 04/22/2023, Expires: 06/22/2023 [facility] Work Phone: Comment on above: Expected: 04/22/2023 , Expires: 06/22/2023 Start: 03-26-2023 BP CONTROLLED (<130/80) BP CONTROLLE D (<130/80) [facility] Start: 03-21-2023 Covid-19 Vaccine ( season) Covid-19 Vaccine ( season) [facility] Start: 03-21-2023 Influenza vaccination [facility] Start: 03-19-2023 Adult depression screening assessment DEPRESSION SCREENING [facility] Start: 03-19-2023 BP CONTROLLED (<130/80) BP CONTROLLE D (<130/80) [facility] Start: 03-11-2023 End: 05-11-2023 T4/FTI/T4U [facility] Work Phone: Comment on above: Expected: 03/11/2023 , Expires: 05/11/2023 Start: 03-11-2023 End: 05-11-2023 Thyrotropin [Units/volume] in Serum or Plasma [facility] Work Phone: Comment on above: Expected: 03/11/2023 , Expires: 05/11/2023 Start: 02-20-2023 BP CONTROLLED (<130/80) BP CONTROLLE D (<130/80) [facility] Start: 02-08-2023 COLORECTAL CANCER SCREENING COLORECTAL CANCER SCREENING [facility] Start: 02-08-2023 FECAL OCCULT BLOOD FECAL OCCULT BLOO D [facility] Start: 02-08-2023 Screening for malign ant neoplasm of colon [facility] Start: 02-07-2023 BP CONTROLLED (<130/80) BP CONTROLLE D (<130/80) [facility] Start: 01-30-2023 BP CONTROLLED (<130/80) BP CONTROLLE D (<130/80) [facility] Start: 01-22-2023 BP CONTROLLED (<130/80) BP CONTROLLE D (<130/80) [facility] Start: 01-14-2023 BP CONTROLLED (<130/80) BP CONTROLLE D (<130/80) [facility] Start: 01-07-2023 End: 03-09-2023 Thyrotropin [Units/volume] in Serum or Plasma [facility] Work Phone: Comment on above: Expected: 01/07/2023 , Expires: 03/09/2023 Start: 12-27-2022 End: 02-26-2023 Comprehensive metabolic 2000 panel - Serum or Plasma COMP METABOLIC PANEL Lab Routine 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) Abnormal LFTs Expected: 12/27/2022 (Approximate), Expires: 02/26/2023 [facility] Work Phone: Comment on above: Expected: 12/27/2022 (Approximate), Expires: 02/26/2023 Start: 12-24-2022 BP CONTROLLED (<130/80) BP CONTROLLE D (<130/80) [facility] Start: 12-16-2022 End: 02-15-2023 CBC W Auto Differential panel - Blood CBC + DIFF Lab Routine Malignant neoplasm of upper lobe of left lung (HCC) Centrilobular emphysema (HCC) Abnormal LFTs Cancer related pain PVD (peripheral vascular disease) (HCC) Malaise and fatigue Expected: 12/16/2022, Expires: 02/15/2023 [facility] Work Phone: Comment on above: Expected: 12/16/2022 , Expires: 02/15/2023 Start: 12-16-2022 End: 02-15-2023 Comprehensive metabolic 2000 panel - Serum or Plasma COMP METABOLIC PANEL Lab Routine Malignant neoplasm of upper lobe of left lung (HCC) Centrilobular emphysema (HCC) Abnormal LFTs Cancer related pain PVD (peripheral vascular disease) (HCC) Malaise and fatigue Expected: 12/16/2022, Expires: 02/15/2023 [facility] Work Phone: Comment on above: Expected: 12/16/2022 , Expires: 02/15/2023 Start: 12-16-2022 End: 02-15-2023 Thyrotropin [Units/volume] in Serum or Plasma TSH BLD Lab Routine Malignant neoplasm of upper lobe of left lung (HCC) Centrilobular emphysema (HCC) Abnormal LFTs Cancer related pain PVD (peripheral vascular disease) (HCC) Malaise and fatigue Expected: 12/16/2022, Expires: 02/15/2023 [facility] Work Phone: Comment on above: Expected: 12/16/2022 , Expires: 02/15/2023 Start: 12-11-2022 Adult depression screening assessment DEPRESSION SCREENING [facility] Start: 12-11-2022 BP CONTROLLED (<130/80) BP CONTROLLE D (<130/80) [facility] Start: 12-09-2022 End: 02-08-2023 CBC W Auto Differential panel - Blood CBC + DIFF Lab Routine Malignant neoplasm of upper lobe of left lung (HCC) Centrilobular emphysema (HCC) Abnormal LFTs Cancer related pain PVD (peripheral vascular disease) (HCC) Expected: 12/09/2022, Expires: 02/08/2023 [facility] Work Phone: Comment on above: Expected: 12/09/2022 , Expires: 02/08/2023 Start: 12-09-2022 End: 02-08-2023 Comprehensive metabolic 2000 panel - Serum or Plasma COMP METABOLIC PANEL Lab Routine Malignant neoplasm of upper lobe of left lung (HCC) Centrilobular emphysema (HCC) Abnormal LFTs Cancer related pain PVD (peripheral vascular disease) (HCC) Expected: 12/09/2022, Expires: 02/08/2023 [facility] Work Phone: Comment on above: Expected: 12/09/2022 , Expires: 02/08/2023 Start: 12-03-2022 BP CONTROLLED (<130/80) BP CONTROLLE D (<130/80) [facility] Start: 11-30-2022 BP CONTROLLED (<130/80) BP CONTROLLE D (<130/80) [facility] Start: 11-26-2022 BP CONTROLLED (<130/80) BP CONTROLLE D (<130/80) [facility] Start: 11-25-2022 End: 01-25-2023 CBC W Auto Differential panel - Blood CBC + DIFF Lab Routine 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) Abnormal LFTs Expected: 11/25/2022, Expires: 01/25/2023 [facility] Work Phone: Comment on above: Expected: 11/25/2022 , Expires: 01/25/2023 Start: 11-25-2022 End: 01-25-2023 Comprehensive metabolic 2000 panel - Serum or Plasma COMP METABOLIC PANEL Lab Routine 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) Abnormal LFTs Expected: 11/25/2022, Expires: 01/25/2023 [facility] Work Phone: Comment on above: Expected: 11/25/2022 , Expires: 01/25/2023 Start: 11-25-2022 End: 01-25-2023 Thyrotropin [Units/volume] in Serum or Plasma TSH BLD Lab Routine 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) Abnormal LFTs Malaise and fatigue Expected: 11/25/2022, Expires: 01/25/2023 [facility] Work Phone: Comment on above: Expected: 11/25/2022 , Expires: 01/25/2023 Start: 11-18-2022 End: 01-18-2023 CBC W Auto Differential panel - Blood CBC + DIFF Lab Routine 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) Expected: 11/18/2022, Expires: 01/18/2023 [facility] Work Phone: Comment on above: Expected: 11/18/2022 , Expires: 01/18/2023 Start: 11-18-2022 End: 01-18-2023 Comprehensive metabolic 2000 panel - Serum or Plasma COMP METABOLIC PANEL Lab Routine 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) Expected: 11/18/2022, Expires: 01/18/2023 [facility] Work Phone: Comment on above: Expected: 11/18/2022 , Expires: 01/18/2023 Start: 11-18-2022 End: 01-18-2023 Lactate dehydrogenase [Enzymatic activity/volume] in Serum or Plasma LD LACTATE DEHYDRO Lab Routine 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) Expected: 11/18/2022, Expires: 01/18/2023 [facility] Work Phone: Comment on above: Expected: 11/18/2022 , Expires: 01/18/2023 Start: 11-12-2022 BP CONTROLLED (<130/80) BP CONTROLLE D (<130/80) [facility] Start: 11-05-2022 BP CONTROLLED (<130/80) BP CONTROLLE D (<130/80) [facility] Start: 10-24-2022 BP CONTROLLED (<130/80) BP CONTROLLE D (<130/80) [facility] Start: 10-19-2022 BP CONTROLLED (<130/80) BP CONTROLLE D (<130/80) [facility] Start: 10-15-2022 End: 12-15-2022 MISC SEND OUT TST 1 MISC SEND OUT TST 1 Lab Routine Malignant neoplasm of upper lobe of left lung (HCC) Expected: 10/15/2022, Expires: 12/15/2022 [facility] Work Phone: Comment on above: Expected: 10/15/2022 , Expires: 12/15/2022 Start: 10-11-2022 BP CONTROLLED (<130/80) BP CONTROLLE D (<130/80) [facility] Start: 09-17-2022 End: 11-17-2022 CBC W Auto Differential panel - Blood CBC + DIFF Lab Routine Malignant neoplasm of upper lobe of left lung (HCC) Malaise and fatigue Expected: 09/17/2022 (Approximate), Expires: 11/17/2022 [facility] Work Phone: Comment on above: Expected: 09/17/2022 (Approximate), Expires: 11/17/2022 Start: 09-17-2022 End: 11-17-2022 Comprehensive metabolic 2000 panel - Serum or Plasma COMP METABOLIC PANEL Lab Routine Malignant neoplasm of upper lobe of left lung (HCC) Malaise and fatigue Expected: 09/17/2022 (Approximate), Expires: 11/17/2022 [facility] Work Phone: Comment on above: Expected: 09/17/2022 (Approximate), Expires: 11/17/2022 Start: 09-17-2022 End: 11-17-2022 Lactate dehydrogenase [Enzymatic activity/volume] in Serum or Plasma LD LACTATE DEHYDRO Lab Routine Malignant neoplasm of upper lobe of left lung (HCC) Malaise and fatigue Expected: 09/17/2022 (Approximate), Expires: 11/17/2022 [facility] Work Phone: Comment on above: Expected: 09/17/2022 (Approximate), Expires: 11/17/2022 Start: 09-17-2022 End: 11-17-2022 Thyrotropin [Units/volume] in Serum or Plasma TSH BLD Lab Routine Malignant neoplasm of upper lobe of left lung (HCC) Malaise and fatigue Expected: 09/17/2022 (Approximate), Expires: 11/17/2022 [facility] Work Phone: Comment on above: Expected: 09/17/2022 (Approximate), Expires: 11/17/2022 Start: 08-20-2022 End: 10-20-2022 CBC W Auto Differential panel - Blood CBC + DIFF Lab Routine Malignant neoplasm of upper lobe of left lung (HCC) Anemia due to antineoplastic chemotherapy Expected: 08/20/2022, Expires: 10/20/2022 [facility] Work Phone: Comment on above: Expected: 08/20/2022 , Expires: 10/20/2022 Start: 08-20-2022 End: 10-20-2022 Comprehensive metabolic 2000 panel - Serum or Plasma COMP METABOLIC PANEL Lab Routine Malignant neoplasm of upper lobe of left lung (HCC) Anemia due to antineoplastic chemotherapy Expected: 08/20/2022, Expires: 10/20/2022 [facility] Work Phone: Comment on above: Expected: 08/20/2022 , Expires: 10/20/2022 Start: 07-21-2022 ADVANCE DIRECTIVE DISCUSSION ADVANCE DIRECTIVE DISCUSSION [facility] Start: 07-21-2022 DEPRESSION ASSESSMENT DEPRESSION ASS ESSMENT [facility] Start: 06-25-2022 End: 08-25-2022 THYROGLOBULIN BY MASS SPECTROMETRY THYROGLOBULIN BY MASS SPECTROMETRY Lab Routine Thyroid cancer (HCC) Expected: 06/25/2022, Expires: 08/25/2022 [facility] Work Phone: Comment on above: Expected: 06/25/2022 , Expires: 08/25/2022 Start: 04-18-2022 End: 06-18-2022 CBC W Auto Differential panel - Blood CBC + DIFF Lab Routine Malignant neoplasm of upper lobe of left lung (HCC) Expected: 04/18/2022, Expires: 06/18/2022 [facility] Work Phone: Comment on above: Expected: 04/18/2022 , Expires: 06/18/2022 Start: 04-18-2022 End: 06-18-2022 Comprehensive metabolic 2000 panel - Serum or Plasma COMP METABOLIC PANEL Lab Routine Malignant neoplasm of upper lobe of left lung (HCC) Expected: 04/18/2022, Expires: 06/18/2022 [facility] Work Phone: Comment on above: Expected: 04/18/2022 , Expires: 06/18/2022 Start: 03-21-2022 Influenza vaccination C [facility] Start: 02-22-2022 End: 04-24-2022 CBC W Auto Differential panel - Blood [facility] Work Phone: Comment on above: Expected: 02/22/2022 , Expires: 04/24/2022 Start: 02-22-2022 End: 04-24-2022 Comprehensive metabolic 2000 panel - Serum or Plasma [facility] Work Phone: Comment on above: Expected: 02/22/2022 , Expires: 04/24/2022 Start: 02-15-2022 End: 04-17-2022 CBC W Auto Differential panel - Blood CBC + DIFF Lab Routine Malignant neoplasm of upper lobe of left lung (HCC) Expected: 02/15/2022, Expires: 04/17/2022 [facility] Work Phone: Comment on above: Expected: 02/15/2022 , Expires: 04/17/2022 Start: 2022 ADVANCE DIRECTIVE DISCUSSION ADVANCE DIRECTIVE DISCUSSION [facility] Start: 02-07-2022 End: 04-09-2022 Iron and Iron binding capacity panel - Serum or Plasma [facility] Work Phone: Comment on above: Expected: 02/07/2022 , Expires: 04/09/2022 Start: 02-05-2022 End: 04-07-2022 CBC W Auto Differential panel - Blood CBC + DIFF Lab Routine Malignant neoplasm of upper lobe of left lung (HCC) Expected: 02/05/2022, Expires: 04/07/2022 [facility] Work Phone: Comment on above: Expected: 02/05/2022 , Expires: 04/07/2022 Start: 02-05-2022 End: 04-07-2022 Comprehensive metabolic 2000 panel - Serum or Plasma COMP METABOLIC PANEL Lab Routine Malignant neoplasm of upper lobe of left lung (HCC) Expected: 02/05/2022, Expires: 04/07/2022 [facility] Work Phone: Comment on above: Expected: 02/05/2022 , Expires: 04/07/2022 Start: 02-05-2022 End: 04-07-2022 Magnesium [Mass/volume] in Serum or Plasma MAGNESIUM BLD Lab Routine Malignant neoplasm of upper lobe of left lung (HCC) Expected: 02/05/2022, Expires: 04/07/2022 [facility] Work Phone: Comment on above: Expected: 02/05/2022 , Expires: 04/07/2022 Start: 01-22-2022 End: 03-24-2022 CBC W Auto Differential panel - Blood CBC + DIFF Lab Routine Malignant neoplasm of upper lobe of left lung (HCC) Expected: 01/22/2022, Expires: 03/24/2022 [facility] Work Phone: Comment on above: Expected: 01/22/2022 , Expires: 03/24/2022 Start: 01-22-2022 End: 03-24-2022 Comprehensive metabolic 2000 panel - Serum or Plasma COMP METABOLIC PANEL Lab Routine Malignant neoplasm of upper lobe of left lung (HCC) Expected: 01/22/2022, Expires: 03/24/2022 [facility] Work Phone: Comment on above: Expected: 01/22/2022 , Expires: 03/24/2022 Start: 01-10-2022 End: 03-12-2022 CBC W Auto Differential panel - Blood CBC + DIFF Lab Routine Malignant neoplasm of upper lobe of left lung (HCC) Expected: 01/10/2022, Expires: 03/12/2022 [facility] Work Phone: Comment on above: Expected: 01/10/2022 , Expires: 03/12/2022 Start: 01-10-2022 End: 03-12-2022 Comprehensive metabolic 2000 panel - Serum or Plasma COMP METABOLIC PANEL Lab Routine Malignant neoplasm of upper lobe of left lung (HCC) Expected: 01/10/2022, Expires: 03/12/2022 [facility] Work Phone: Comment on above: Expected: 01/10/2022 , Expires: 03/12/2022 Start: 01-10-2022 End: 03-12-2022 Magnesium [Mass/volume] in Serum or Plasma MAGNESIUM BLD Lab Routine Malignant neoplasm of upper lobe of left lung (HCC) Expected: 01/10/2022, Expires: 03/12/2022 [facility] Work Phone: Comment on above: Expected: 01/10/2022 , Expires: 03/12/2022 Start: 01-03-2022 End: 03-05-2022 CBC W Auto Differential panel - Blood CBC + DIFF Lab Routine Malignant neoplasm of upper lobe of left lung (HCC) Expected: 01/03/2022, Expires: 03/05/2022 [facility] Work Phone: Comment on above: Expected: 01/03/2022 , Expires: 03/05/2022 Start: 01-03-2022 End: 03-05-2022 Comprehensive metabolic 2000 panel - Serum or Plasma COMP METABOLIC PANEL Lab Routine Malignant neoplasm of upper lobe of left lung (HCC) Expected: 01/03/2022, Expires: 03/05/2022 [facility] Work Phone: Comment on above: Expected: 01/03/2022 , Expires: 03/05/2022 Start: 01-03-2022 End: 03-05-2022 Magnesium [Mass/volume] in Serum or Plasma MAGNESIUM BLD Lab Routine Malignant neoplasm of upper lobe of left lung (HCC) Expected: 01/03/2022, Expires: 03/05/2022 [facility] Work Phone: Comment on above: Expected: 01/03/2022 , Expires: 03/05/2022 Start: 12-10-2021 End: 02-09-2022 CBC W Auto Differential panel - Blood CBC + DIFF Lab Routine Malignant neoplasm of upper lobe of left lung (HCC) Acute kidney injury (HCC) Expected: 12/10/2021 (Approximate), Expires: 02/09/2022 [facility] Work Phone: Comment on above: Expected: 12/10/2021 (Approximate), Expires: 02/09/2022 Start: 12-10-2021 End: 02-09-2022 Comprehensive metabolic 2000 panel - Serum or Plasma COMP METABOLIC PANEL Lab Routine Malignant neoplasm of upper lobe of left lung (HCC) Acute kidney injury (HCC) Expected: 12/10/2021 (Approximate), Expires: 02/09/2022 [facility] Work Phone: Comment on above: Expected: 12/10/2021 (Approximate), Expires: 02/09/2022 Start: 12-03-2021 End: 02-02-2022 CBC W Auto Differential panel - Blood CBC + DIFF Lab Routine Malignant neoplasm of upper lobe of left lung (HCC) Expected: 12/03/2021, Expires: 02/02/2022 [facility] Work Phone: Comment on above: Expected: 12/03/2021 , Expires: 02/02/2022 Start: 12-03-2021 End: 02-02-2022 Comprehensive metabolic 2000 panel - Serum or Plasma COMP METABOLIC PANEL Lab Routine Malignant neoplasm of upper lobe of left lung (HCC) Expected: 12/03/2021, Expires: 02/02/2022 [facility] Work Phone: Comment on above: Expected: 12/03/2021 , Expires: 02/02/2022 Start: 11-30-2021 End: 01-30-2022 CBC W Auto Differential panel - Blood CBC + DIFF Lab Routine Malignant neoplasm of upper lobe of left lung (HCC) Acute kidney injury (HCC) Expected: 11/30/2021, Expires: 01/30/2022 [facility] Work Phone: Comment on above: Expected: 11/30/2021 , Expires: 01/30/2022 Start: 11-30-2021 End: 01-30-2022 Comprehensive metabolic 2000 panel - Serum or Plasma COMP METABOLIC PANEL Lab Routine Malignant neoplasm of upper lobe of left lung (HCC) Acute kidney injury (HCC) Expected: 11/30/2021, Expires: 01/30/2022 [facility] Work Phone: Comment on above: Expected: 11/30/2021 , Expires: 01/30/2022 Start: 11-19-2021 End: 01-19-2022 Basic metabolic 2000 panel - Serum or Plasma [facility] Work Phone: Comment on above: Expected: 11/19/2021 , Expires: 01/19/2022 Start: 11-14-2021 End: 01-14-2022 Basic metabolic 2000 panel - Serum or Plasma BASIC METABOLIC PNL Lab Routine Malignant neoplasm of upper lobe of left lung (HCC) Expected: 11/14/2021, Expires: 01/14/2022 [facility] Work Phone: Comment on above: Expected: 11/14/2021 , Expires: 01/14/2022 Start: 11-12-2021 End: 01-12-2022 CBC W Auto Differential panel - Blood CBC + DIFF Lab Routine Malignant neoplasm of upper lobe of left lung (HCC) Expected: 11/12/2021, Expires: 01/12/2022 [facility] Work Phone: Comment on above: Expected: 11/12/2021 , Expires: 01/12/2022 Start: 11-12-2021 End: 01-12-2022 Comprehensive metabolic 2000 panel - Serum or Plasma COMP METABOLIC PANEL Lab Routine Malignant neoplasm of upper lobe of left lung (HCC) Expected: 11/12/2021, Expires: 01/12/2022 [facility] Work Phone: Comment on above: Expected: 11/12/2021 , Expires: 01/12/2022 Start: 10-26-2021 End: 11-18-2022 Mri brain brain stem w/o w/contrast material MRI BRAIN WO/W IVCON Radiology Routine Malignant neoplasm of upper lobe of left lung (HCC) Expected: 10/26/2021, Expires: 11/18/2022 [facility] Work Phone: Comment on above: Expected: 10/26/2021 , Expires: 11/18/2022 Start: 09-11-2021 Covid-19 Vaccine (5 - Moderna series) Covid-19 Vaccine (5 - Moderna series) [facility] Start: 07-21-2021 DEPRESSION ASSESSMENT DEPRESSION ASS ESSMENT [facility] Start: 05-15-2021 COVID-19 VACCINE (3 - Booster for Moderna series) COVID-19 VACCINE (3 - Booster for Moderna series) [facility] Start: 03-21-2021 Influenza vaccination INFLUENZA (#1) [facility] Start: 02-07-2021 COVID-19 VACCINE (3 - Moderna series) COVID-19 VACCINE (3 - Moderna series) [facility] Start: 01-10-2021 COVID-19 VACCINE (3 - Moderna risk 4-dose series) COVID-19 VACCINE (3 - Moderna risk 4-dose series) [facility] Start: 01-10-2021 COVID-19 VACCINE (3 - Moderna risk series) COVID-19 VACCINE (3 - Moderna risk series) [facility] Start: 2017 RSV Vaccine (1 - 1-d ose 60+ series) RSV Vaccine (1 - 1-dose 60+ series) [facility] Start: 02-14-2012 PROSTATE CANCER SCREENING DISCUSSION PROSTATE CANCER SCREENING DISCUSSION [facility] Start: 02-14-2012 Prostate specific antigen measurement Prostate Cancer Screening Discussion [facility] Start: 2007 SHINGRIX VACCINE (1 of 2) SHINGRIX VACCINE (1 of 2) [facility] Start: 2002 COLOGUARD (FIT-DNA) COLOGUARD (FIT-D NA) [facility] Start: 2002 Colonoscopy COLONOSCOPY [facility] Start: 2002 COLORECTAL CANCER SCREENING COLORECTAL CANCER SCREENING [facility] Start: [address] COLONOGRAPHY [facility] Start: 2002 FECAL OCCULT BLOOD FECAL OCCULT BLOO D [facility] Start: 2002 Screening for malign ant neoplasm of colon [facility] Start: 2002 SIGMOIDOSCOPY SIGMOIDOSCOPY [facility] Start: 02-14-1992 Lipid 1996 panel - Serum or Plasma Lipid Screening [facility] Start: 02-14-1992 Lipid panel Lipid Screening [facility] Start: 02-14-1992 LIPID SCREEN LIPID SCREEN [facility] Start: 1987 Zoledronic acid therapy ALPHA- 1 ANTITRYPSIN DEFICIENCY SCREENING [facility] Start: 02-14-1976 SHINGRIX VACCINE (1 of 2) SHINGRIX VACCINE (1 of 2) [facility] Start: 1975 ANNUAL PCP TEAM ROUTE SUPERVISOR ALYSSA DISEASE VISIT ANNUAL PCP TEAM CHRONIC DISEASE VISIT [facility] Start: 1975 Anxiety Screening Anxiety Screening [facility] Start: 1975 BP CONTROLLED (<130/80) BP CONTROLLE D (<130/80) [facility] Start: 1975 Depression Screening Depression Scre ening [facility] Start: 1975 Hepatitis B surface antibody level LDL CHOLESTEROL [facility] Start: 1975 HEPATITIS C SCREENING HEPATITIS C [facility] Start: 1975 Hepatitis C screening Hepatitis C [facility] Start: 1975 HIV SCREENING HIV SCREENING [facility] Start: 1969 Adult depression screening assessment DEPRESSION SCREENING [facility] Start: 1963 PNEUMOCOCCAL (1 - PCV) PNEUMOCOCCAL (1 - PCV) [facility] Start: 1963 Pneumococcal Vaccine : 65+ (1 - PCV) Pneumococcal Vaccine: 65+ (1 - PCV) [facility] Start: 1963 Pneumococcal Vaccine : 65+ (1 of 2 - PCV) Pneumococcal Vaccine: 65+ (1 of 2 - PCV) [facility] Start: 1963 PNEUMOCOCCAL: 65+ (1 - PCV) PNEUMOCOCCAL: 65+ (1 - PCV) [facility] Start: 1957 ABDOMINAL AORTIC ANEURYSM SCREENING ABDOMINAL AORTIC ANEURYSM SCREENING [facility] Start: 1957 Abdominal aortic aneurysm screening Abdominal Aortic Aneurysm Screening [facility] Anion gap measurement [facility] aPTT in Platelet poo r plasma by Coagulation assay [facility] Basophils [#/volume] in Blood by Automated count [facility] Basophils/100 leukocytes in Blood by Automated count [facility] Biopsy soft tissue neck/thorax BIOPSY SOFT TISSUE NECK/CHEST Procedures Routine Malignant neoplasm of upper lobe of left lung (HCC) Ordered: 10/15/2022 [facility] Work Phone: Comment on above: Ordered: 10/15/2022 End: 05-08-2023 Bone &/joint imaging whole body NM BONE WHOLE BODY Radiology Routine Malignant neoplasm of unspecified part of unspecified bronchus or lung (HCC) 1 Occurrences starting 04/08/2022 until 05/08/2023 [facility] Work Phone: Comment on above: 1 Occurrences starti ng 04/08/2022 until 05/08/2023 End: 09-19-2023 Ct abdomen & pelvis w/contrast material CT ABD/PEL W IVCON Radiology Routine Malignant neoplasm of upper lobe of left lung (HCC) 1 Occurrences starting 08/20/2022 until 09/19/2023 [facility] Work Phone: Comment on above: 1 Occurrences starti ng 08/20/2022 until 09/19/2023 End: 09-19-2023 CT CHEST W IVCON CT CHEST W IVCON Radiology Routine 1 Occurrences starting 08/20/2022 until 09/19/2023 [facility] Work Phone: Comment on above: 1 Occurrences starti ng 08/20/2022 until 09/19/2023 CT Guidance for radiation treatment of Unspecified body region CT SIM PLANNING RADIATION ONCOLOGY Radiology Routine Malignant neoplasm of upper lobe of left lung (HCC) Ordered: 12/02/2023 [facility] Work Phone: Comment on above: Ordered: 12/02/2023 CT SIM PLANNING RADIATION ONCOLOGY CT SIM PLANNING RADIATION ONCOLOGY Radiology Routine Malignant neoplasm of upper lobe of left lung (HCC) Ordered: 03/20/2022 [facility] Work Phone: Comment on above: Ordered: 03/20/2022 CT SIM PLANNING RADIATION ONCOLOGY CT SIM PLANNING RADIATION ONCOLOGY Radiology Routine Malignant neoplasm of unspecified part of unspecified bronchus or lung (HCC) Ordered: 10/21/2022 [facility] Work Phone: Comment on above: Ordered: 10/21/2022 CT SIM PLANNING RADIATION ONCOLOGY CT SIM PLANNING RADIATION ONCOLOGY Radiology Routine Oropharnyx cancer (HCC) Ordered: 06/11/2023 [facility] Work Phone: Comment on above: Ordered: 06/11/2023 Eosinophils/100 leukocytes in Blood by Automated count [facility] Erythrocyte distribution width [Ratio] by Automated count [facility] Erythrocytes [#/volu me] in Blood [facility] Hematocrit [Volume Fraction] of [facility] Hemoglobin [Mass/volume] in [facility] Hemoglobin.gastroint est inal.lower [Presence] in Stool by Immunoassay FECAL OCCULT BLOOD TEST Lab Routine Malignant neoplasm of upper lobe of left lung (HCC) Ordered: 02/07/2022 [facility] Work Phone: Comment on above: Ordered: 02/07/2022 Hepatic function 200 0 panel - Serum or Plasma HEPATIC FUNCTION PNL Lab STAT Malignant neoplasm of upper lobe of left lung (HCC) 11/11/2022 2:47 PM EDT [facility] Work Phone: INR in Platelet poor plasma by Coagulation assay [facility] Leukocytes [#/volume ] corrected for nucleated erythrocytes in Blood by Automated coun [facility] Leukocytes [#/volume ] in Blood [facility] End: 04-14-2025 LUNG DIFFUSION CAPACITY (DLCO) LUNG DIFFUSION CAPACITY (DLCO) PFT Routine Centrilobular emphysema (HCC) Dyspnea on exertion 1 Occurrences starting 03/15/2024 until 04/14/2025 [facility] Comment on above: 1 Occurrences starti ng 03/15/2024 until 04/14/2025 Lymphocytes [#/volum e] in Blood by Automated count [facility] Lymphocytes/100 leukocytes in Blood by Automated count [facility] MCH [Entitic mass] b y Automated count [facility] MCHC [Mass/volume] b y Automated count [facility] MCV [Entitic volume] by Automated count [facility] Monocytes [#/volume] in Blood by Automated count [facility] Monocytes/100 leukocytes in Blood by Automated count [facility] MRA Head vessels WO contrast [facility] Neutrophils [#/volum e] in Blood by Automated count [facility] Neutrophils/100 leukocytes in Blood by Automated count [facility] End: 10-23-2023 NM PET/CT SKULL-THIGH SUBSEQUENT NM PET/CT SKULL-THIGH SUBSEQUENT Radiology Routine Lung nodules 1 Occurrences starting 09/23/2022 until 10/23/2023 [facility] Work Phone: Comment on above: 1 Occurrences starti ng 09/23/2022 until 10/23/2023 End: 09-23-2024 NM PET/CT SKULL-THIGH SUBSEQUENT NM PET/CT SKULL-THIGH SUBSEQUENT Radiology Routine 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) 1 Occurrences starting 08/25/2023 until 09/23/2024 [facility] Work Phone: Comment on above: 1 Occurrences starti ng 08/25/2023 until 09/23/2024 Nucleated erythrocyt es [Presence] in Blood by Automated count [facility] Patient Education [facility] Work Phone: Patient referral [facility] Work Phone: End: 12-03-2024 PET+CT Guidance for localization of tumor of Skull base to mid-thigh-- W 18F-FDG IV NM PET/CT SKULL-THIGH SUBSEQUENT Radiology Routine 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) 1 Occurrences starting 11/04/2023 until 12/03/2024 [facility] Work Phone: Comment on above: 1 Occurrences starti ng 11/04/2023 until 12/03/2024 End: 03-04-2025 PET+CT Guidance for localization of tumor of Skull base to mid-thigh-- W 18F-FDG IV NM PET/CT SKULL-THIGH SUBSEQUENT Radiology Routine 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 Swelling of arm Cancer associated pain 1 Occurrences starting 02/03/2024 until 03/04/2025 [facility] Comment on above: 1 Occurrences starti ng 02/03/2024 until 03/04/2025 Platelet mean volume [Entitic volume] in Blood by Automated count [facility] Platelets [#/volume] in Blood [facility] Prothrombin time (PT) [facility] End: 11-10-2022 Radiologic exam chest 2 views XR CHEST 2V FRONTAL/LAT Radiology Routine Malignant neoplasm of upper lobe of left lung (HCC) 1 Occurrences starting 10/11/2021 until 11/10/2022 [facility] Work Phone: Comment on above: 1 Occurrences starti ng 10/11/2021 until 11/10/2022 SPIROMETRY WITH DILA TOR IF OBSTRUCTED SPIROMETRY WITH DILATOR IF OBSTRUCTED PFT Routine Chronic obstructive pulmonary disease, unspecified COPD type (HCC) Lung nodule 01/29/2022 7:47 AM EDT [facility] Work Phone: End: 04-14-2025 SPIROMETRY WITH DILATOR IF OBSTRUCTED SPIROMETRY WITH DILATOR IF OBSTRUCTED PFT Routine Centrilobular emphysema (HCC) Dyspnea on exertion 1 Occurrences starting 03/15/2024 until 04/14/2025 [facility] Work Phone: Comment on above: 1 Occurrences starti ng 03/15/2024 until 04/14/2025 End: 03-04-2025 US Upper extremity vein - left US DVT UPPER LEFT Radiology STAT 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) Swelling of arm 1 Occurrences starting 02/03/2024 until 03/04/2025 [facility] Comment on above: 1 Occurrences starti ng 02/03/2024 until 03/04/2025 [facility] Immunizations Immunization Date Immunization Notes Care Provider Fa cility 12-13-2020 COVID-19 vaccine, fu ll dose (MODERNA) Aracelis Carrillo TOWER EXCAVATOR OPERATOR.FOUNTAIN CLERK Work Phone: [facility] 11-15-2020 COVID-19 vaccine, fu ll dose (MODERNA) Aracelis Carrillo TOWER EXCAVATOR OPERATOR.FOUNTAIN CLERK Work Phone: [facility] 10-13-2020 diphtheria, tetanus toxoids and pertussis vaccine Aracelis Carrillo APRN.FOUNTAIN CLERK Work Phone: [facility] Payers Date Payer Category Payer Self-pay [id number] 2023 Private Health Insurance [facility] [id number] 2022 Medicare MEDICARE MEDICAR E A AND B [id number] 2022[facility] [phone] [facility] [address] [place] [address] Medicare [id number] 2022 Medicare [id number] .[id number] 2019 Medicaid [id number] 2000 Medicaid [id number]. [id number] .[id number] 1959 Medicare [id number] 1959 Unknown [id number] 1957 Unknown [id number] 2.16.840.1.953787.3.579.2.6 47 1957 Unknown [id number] 2.16.840.1.246919.3.579.2.5 93 1957 Unknown [id number] 2.16.840.1.768282.3.579.2.5 93 1957 Unknown [id number] 2.16.840.1.797668.3.579.2.5 93 1957 Unknown [id number] 2.16.840.1.374783.3.579.2.5 93 1957 Unknown [id number] 2.16.840.1.333624.3.579.2.5 1957 Unknown [id number] 2.16.840.1.128509.3.579.2.5 1957 Unknown [id number] 2.16.840.1.743091.3.579.2.5 1957 Unknown [id number] 2.16.840.1.050411.3.579.2.5 1957 Unknown [id number] 2.16.840.1.555571.3.579.2.5 1957 Unknown [id number] 2.16.840.1.849900.3.579.2.5 1957 Unknown [id number] 2.16.840.1.866232.3.579.2.3 1957 Unknown [id number] 2.16.840.1.615499.3.579.2.7 1957 Unknown [id number] 2.16.840.1.122059.3.579.2.7 1957 Unknown [id number] 2.16.840.1.860529.3.579.2.7 1957 Unknown [id number] 2.16.840.1.611409.3.579.2.7 1957 Unknown [id number] 2.16.840.1.974466.3.579.2.7 1957 Unknown [id number] 2.16.840.1.286195.3.579.2.7 1957 Unknown [id number] 2.16.840.1.376441.3.579.2.7 1957 Unknown [id number] 2.16.840.1.277886.3.579.2.7 1957 Unknown [id number] 2.16.840.1.053931.3.579.2.7 1957 Unknown [id number] 2.16.840.1.890179.3.579.2.7 1957 Unknown [id number] 2.16.840.1.481494.3.579.2.7 1957 Unknown [id number] 2.16.840.1.684474.3.579.2.7 1957 Unknown [id number] 2.16.840.1.062710.3.579.2.7 1957 Unknown [id number] 2.16.840.1.386861.3.579.2.7 1957 Unknown [id number] 2.16.840.1.306104.3.579.2.7 1957 Unknown [id number] 2.16.840.1.438479.3.579.2.7 27 Unknown [id number] 2.16.840.1.163673.3.579.2.5 31 Unknown [id number] 2.16.840.1.735379.3.579.2.5 31 Unknown [id number] 2.16.840.1.813060.3.579.2.5 31 Unknown [id number] 2.16.840.1.245245.3.579.2.5 31 Social History Date Type Detail Facility Start: 07-03-2021 End: 04-30-2022 Tobacco smoking status NYIS Ex-smoker [facility] Start: 07-21-1970 End: 07-13-2020 History of tobacco use Current smoker [facility] Start: 07-21-1970 End: 07-21-2020 History of tobacco use Cigarette Smoker [facility] Start: 07-03-2021 End: 04-30-2022 Tobacco use and exposure Smokeless tobacco non-user [facility] Start: 10-11-2021 End: 12-23-2023 Alcohol intake Current drinker of alcohol (finding) [facility] Start: 10-11-2021 End: 11-20-2022 Alcohol intake [facility] Start: 09-25-2021 End: 03-26-2022 Tobacco Comment was smoking on and off fully quit 09/14/21 [facility] Start: 1955 Sex Assigned At Not on file [facility] Start: 04-27-2021 End: 06-11-2022 Exposure to SARS-CoV-2 (event) Not sure [facility] Start: 10-19-2021 History SDOH Alcohol Comment 4-9 beers per day [facility] Start: 04-16-2021 [facility] Start: 1955 Sex Assigned At Male [facility] History of tobacco use Passive smoker [facility] Start: 11-20-2022 End: 01-28-2023 Tobacco use panel [facility] Adult Depression Screening Assessment 0 [facility] Start: 07-21-1970 [facility] sm[facility] Goals Date Patient Goal Desired Activity /State Functional Status Date Assessment Result Facility 03-19-2024 Functional status Patient at Baseline [facility] Work Phone: Mental Status Date Assessment Result Facility 03-19-2024 Cognitive function Cognitive Sta tus Patient at Baseline [facility] Work Phone: Clinical Notes 05-28-2021 to 03-20-2024 Note Date & Type Note Facility 03-20-2024 Consult note Note Date/Time March 20, 2024 11:06am [facility] [address] [place] [address] Neurology Consult Note Signed Patient: Cristal Gu MR#: [id number] : 1955 Acct:[id number] Age/Sex: 69 / M Adm Date: 4 Loc: 3T Room: 9Q0583-3 Type: ADM INOo Attending Dr: Jair Nichols MD Copies to: NON STAFF MD Denisse Olivia DO~ HPI Consult Date: 03/20/24 Monotype Operator: Denisse Dial DO Reason for consult: AMS [...] exericsing lately. He previously went to the [facility] and walked 2 miles. He quite [...] later on as he changed his mind. [facility] Medical History Diverticulosis History of rib fracture [...] of dysmetria with good rapid alternating movements [id number] Tone is physiologic Sensation is intact to [...] signed by DO Denisse Dial> 03/20/24 1229 [facility] Work Phone: 1(451) 918-746008-31-2024 History and physical note Author Jair Nichols [facility] March 19, 2024 10:21pm Note Date/Time March 19, 2024 10 :21pm [facility] [address] [place] [address] Hospitalist H&P Signed Patient: Cristal Gu MR#: [id number] : 1955 Acct:[id number] Age/Sex: 69 / M Adm Date: 4 Loc: 3T Room: [address] [place] [address] Type: ADM INOo Attending Dr: Jair Nichols [...] heat intolerance Hematologic/Lymphatic Hematologic/Lymphatic: [facility] Diverticulosis History of rib fracture [...] inpatient consult. He sees Dr. Grigsby from [facility]. Patient may follow-up with him as an [...] <Electronically signed by Jair Nichols MD> 03/19/242220 [facility] Work Phone: 1(960) 983-565808-29-2024 Nurse Note* Pavithra Jacinto MA - 03/18/2024 1:25 PM EDT Patient son states that this morning he was acting strange, says that he put teeth in microwave, other son said he was eating dog food-[place] states he was picking it up because it was on the floor. They are not sure if it is his medications or not. Pavithra Jacinto MA [facility]08-29-2024 Nurse Note* Pavithra Jacinto MA [...] not. Pavithra Jacinto MA [facility] [facility] History of Present illness Narrative* Nina Grigsby MD - 03/17/2024 1:56 PM EDT PATIENT NAME: Cristal Gu DATE: 03/18/2024 PRIMARY CARE PHYSICIAN: Dr. Christina Azul OTHER PHYSICIANS: Dr. Verito Whelan, Dr. Marianne Fields, Dr. Damon Tse ([facility]) Christina Tavarez Portions of this [...] 2019: Peripheral arterial disease (HCC) Comment: R SEPARATIONS SCIENTIST stent PAST SURGICAL HISTORY: PAST SURGICAL HISTORY 2019: BACK SURGERY HX 2016: CABG (4) VEIN GRAFTS & ARTERIAL GRAFT(S) 2019: LOWER EXTREMITY GENOMICS SCIENTIST W/WO STENT; Right Comment: right common femoral [...] swelling and hand discoloration resolved. PATHOLOGY: 10/21/2022 [id number] NGS analysis KRAS G12C mutation present, 5.2% [...] No hypermetabolic osseous lesions 01/03/2023 [place] [place] Bilateral hilar soft tissue nodules concerning for [...] prior study, as above. 04/12/2022 Bone scan ([facility]) Degenerative findings. No evidence of metastatic [...] tonsillar mass. The patient was reevaluated by [facility] ENT May 2023 and it was [...] 2015. Status post CABG x 4 in [place] 2015. Currently stable. Continue management per PCP/cardiology. [...] uses Percocet as needed. Continue management per [facility] palliative medicine. 7. Abnormal LFTs Labs [...] it was [place] he [place] [facility] [place] for urgent evaluation to include brain scan. Based on scan results neurology consult should be considered. Nina Grigsby MD documented in this encounterSouthview Medical Center08-28-[address] [facility]-28-2024 History of Present illness Narrative* Estella Fish, OZZIE.FOUNTAIN CLERK - 03/17/2024 12:38 PM EDT PALLIATIVE MEDICINE VIRTUAL PROGRESS NOTE SERVICE DATE: 03/17/2024 This visit was conducted as a virtual/telehealth visit, in lieu of a face to face encounter,patient's identity and physical location were verified at the time of this visit. Either the patient or their legal telesales representative has been informed of the risks [...] emphysema, CAD, PVD Subjective I met with Pérez via virtual visit, he is alert oriented [...] increased anxiety with increasing pain. Modified ESAS ([place] Symptom Assessment Scale) Information Provided By: Patient [...] was identified. 03/17/2024 by Estella Fish NP, TOWER EXCAVATOR OPERATOR.FOUNTAIN CLERK Urine Screen Lab Results Component Value Date UAMPH Negative 09/26/2021 UBARB2 Negative 09/26/2021 UBENZ Negative 09/26/2021 UCOC2 Negative 09/26/2021 UOPI Negative 09/26/2021 UOXYC Negative 09/26/2021 UPCP Negative 09/26/2021 UTHC Negative 09/26/2021 UETOH <11 09/26/2021 Assessment & Plan (Z51.5) Palliative care by specialist (primary encounter diagnosis) - Reviewed philosophy of palliative medicine - Discussed services offered by [facility] - Provided support -Discussed services [...] Zofran prn every 8 hours - Increase chezszykcu10 mg p.o. at bedtime -Small frequent meals [...] lead to or permanent disability - Continue rxmgedqmdz61 mg p.o. at bedtime - Effexor 37.5 [...] 4 Weeks in person Estella Fish, RACHEL, TOWER EXCAVATOR OPERATOR.FOUNTAIN CLERK March 17, 2024 1:24 PM I spent a total of 35 minutes on the date of the service which included preparing to see the patient, nwch-so-nlbo patient care, completing clinical documentation, obtaining and/or reviewing separately obtained history, performing a medically appropriate examination, counseling and educating the pat ient/family/caregiver, ordering medications, tests, or procedures, communicating with other HCPs (not separately reported), independently interpreting results (not separately reported), communicatingresults to the patient/family/caregiver, and care coordination (not separately reported). This note may have been partially generated using the [employer] voice recognition system. While every effort was made to correct voice recognition errors, kindly be aware that some errors may occasionally occur.occur documented in this encounterSouthview Medical Center08-26-[address] [facility]08-26-2024 History of Present illness Narrative* Merary Lucas [...] of breath. Takes anxiety medication which helps. [employer] appt tomorrow No recent pneumonia. He has been coughing up green things. He took an antibiotic, a pink pill, couple weeks ago. Maybe amoxicillin 02/04. Sounds like he was treated for bronchitis or exacerbation, unclear to me, at an outside facility. He has gone to ER for sob. Up until a couple of months ago he was walking [facility]. 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 Former smoker: quit about a year or [...] 2019: Peripheral arterial disease (HCC) Comment: R SEPARATIONS SCIENTIST stent PAST SURGICAL HISTORY 2019: BACK SURGERY HX 2016: CABG (4) VEIN GRAFTS & ARTERIAL GRAFT(S) 2019: LOWER EXTREMITY GENOMICS SCIENTIST W/WO STENT; Right Comment: right common femoral [...] Lucas MD Pulmonary & Critical Care Medicine [facility] [place] March 15, 2024 1:01 PM I spent a total of 40 minutes on the date of the service which included preparing to see the patient, racb-st-jdjb patient care, completing clinical documentation, obtaining and/or reviewing separately obtained history, performing a medically appropriate examination, counseling and educating the pat ient/family/caregiver, ordering medications, tests, or procedures, communicating with other HCPs (not separately reported), independently interpreting results (not separately reported), and communicating results to the patient/family/caregiver. documented in this encounterSouthview Medical Center08-26-2024 Telephone encounter Note * Telephone [...] he is currently scheduled to see Estella Fraudwall Technologiesanay this 03/17 @ 1030 in our [place] office. Appointment details written down per pt. Pt denies any other questions at this time. Denita Rai RN [facility] Work Phone: [phone] Miscellaneous Notes* Telephone Encounter - Denita Rai RN - 03/15/2024 9:49 AM EDT Pt calls requesting the address for today's appointment in [place]. Address provided to pt. Name of physician spelled out over the phone per pt request as well. Pt also asks for the date and time of hisPall Med appointment. Informed pt that he is currently scheduled to see Estella Fraudwall Technologiestono this 03/17 @ 1030 in our [place] office. Appointment details written down per pt. Pt denies any other questions at this time. Denita Rai RN documented in this encounterSouthview Medical Center08-20-2024 Telephone encounter Note * Telephone Encounter - Julieth Tapia RN - 03/09/2024 2:05 PM EDT Palliative Medicine Care Coordination Follow up Phone Call Patient returned our call. Patient identified by name and : Yes Spoke with Pérez. Let him know Christina VILLEDA would like to trial a steroid and she sent a prescription to his [facility] pharmacy. Instructed him to follow the directions [...] Tapia RN March 09, 2024 2:10 PM [facility]08-20-2024 Miscellaneous Notes* Telephone Encounter - Julieth Tapia RN - 03/09/2024 2:05 PM EDT Palliative Medicine Care Coordination Follow up Phone Call Patient returned our call. Patient identified by name and : Yes Spoke with Pérez. Let him know Christina VILLEDA would like to trial a steroid and she sent a prescription to his [facility] pharmacy. Instructed him to follow the directions [...] try a dex pain taper, sent to [facility] He can also place two transdermal Fentanyl [...] medication he could take. His pharmacy is [facility] in [place]. Please advise. Thanks! Deborah Warner, RN documented in this encounterSouthview Medical Center08-20-2024 Telephone encounter Note * Telephone Encounter - Denita Rai RN - 03/09/2024 1:52 PM EDT Pt calls w/ c/o increased pain. Informed pt that Pall Med attempted to contact him earlier today, but his voicemail was full. Phone number for Pall Med given to pt. Pt verbalizes understanding and will call them back. Denita Rai RN [facility] Work Phone: [phone] Telephone encounter Note* Telephone Encounter - Julieth Tapia RN - 03/09/2024 1:27 PM EDT Palliative Medicine Care Coordination Follow up Phone Call Telephone call to Cristal Gu and his brother Christina Gu with no answer, both VM's say VM box full and unable to leave a message. Julieth Tapia RN March 09, 2024 1:30 PM [facility]08-20-2024 Telephone encounter Note* Telephone Encounter - Estella Fish APRN.RONAL - 03/09/2024 1:17 PM EDT Lets try a dex pain taper, sent to [facility] He can also place two transdermal Fentanyl Patches on for a total of 100 mcg/hr [facility]08-20-2024 Telephone encounter Note* Telephone Encounter [...] medication he could take. His pharmacy is [facility] in [place]. Please advise. Thanks! Deborah Warner RN [facility]08-20-2024 Telephone encounter Note* Telephone Encounter - Yusef Pandya PA-C - 03/09/2024 11:30 AM EDT Orders in Yusef Pandya PA-C [facility] Work Phone: [phone] Miscellaneous Notes* Telephone Encounter - Yusef Pandya [...] Dr. Grigsby on 03/18 documented in this encounterSouthview Medical Center08-20-2024 Telephone encounter Note * Telephone Encounter - Hannah Oglesby RN - 03/09/2024 11:10 AM EDT Pt here for PET today-wt decreased to 48 kg, states he has no appetite, not eating or drinking much . If agreeable please place IV fluid order for today while here for PET. Pt states fluids may 'perk me up F/u with Dr. Grigsby on 03/18 [facility]08-20-2024 History of Present illness Narrative* [...] 1023 PATIENT DISCHARGED TO: Ambulatory patient, left OR department area. A Diagnostic radioactive procedure has taken place, with no further precautions necessary other than routine body substance precautions. More information regarding radiation safety can be found usingthis link: [email or web address] SIGNATURE: RT Charis(Marcella) PATIENT NAME: Cristal Gu DATE: March 09, 2024 TIME: 10:38 AM PAGER/CONTACT #: documented in this encounterSouthview Medical Center08-20-[address] [facility]08-20-[address] [facility]08-13-2024 Telephone encounter Note* Telephone Encounter - [place] Kearney - 03/02/2024 10:53 AM EDT Patient is scheduled with Dr Guaman in the [place] office on 03/09/2024 at 10 am per Tomasa from care everywhere. Spoke to patient & he stated he wasn't at home & was going to call us later to give us the appointment date & time of the ENT appointment. So, patient aware of appointment. MONA Hand [facility]08-13-2024 Miscellaneous Notes* Telephone Encounter - [place] Kearney - 03/02/2024 10:53 AM EDT Patient is scheduled with Dr Guaman in the [place] office on 03/09/2024 at 10 am per [...] - 02/24/2024 1:46 PM EDT Spoke to care team coordinator scheduler at Dr Hayward's office at [phone] at [facility]. She needed the referral in order to get patient scheduled. Faxed referral order over to their office at [phone]. I will call the office back to check on status of appointment tomorrow or next day. MONA Hand * Telephone Encounter - Denita Rai RN - 02/24/2024 12:19 PM EDT Clerical: Please refer pt to ENT. Abnormal CT neck. Recommending scope. Pt would like seen JATINDER. Local or [facility]. Whichever can see him 1st. Denita Rai RN * Telephone Encounter - eDnita Rai RN - 02/24/2024 11:55 AM EDT [...] out? Denita Rai RN documented in this encounterSouthview Medical Center08-12-2024 Telephone encounter Note * Telephone Encounter - Estella Fish APRN.CNP - 03/01/2024 3:22 PM EDT It has been over 90 days since I saw Maren, he has missed appts. I cn give him 7 days worth of meds, but he needs to see me before I can prescribe more. [facility]08-12-2024 Miscellaneous Notes* Telephone Encounter - [...] Get Hernandes - 03/01/2024 12:[address] [facility] is calling today regarding Refill Request Patient has been identified by name and birthdate. Requesting delivery method: call/escript to: [facility] [place] Additional Concern: N/A Requesting response back: N/A [phone] (home) Get Escobar March 01, 2024 documented in this encounterSouthview Medical Center08-12-2024 Telephone encounter Note * Telephone [...] Please review and advise. Arianna Saha RN [facility]08-12-2024 Telephone encounter Note* Telephone Encounter - Get Hernandes - 03/01/2024 12:03 PM EDT [facility] [place] is calling today regarding Refill Request Patient has been identified by name and birthdate. Requesting delivery method: call/escript to: [facility] [place]/ [facility] Additional Concern: N/A Requesting response back: N/A [phone] (home) Get Escobar March 01, 2024 [facility]08-08-2024 Telephone encounter Note* Telephone Encounter - Bernadine Davis - 02/26/2024 10:16 AM EDT Spoke with Dr Douglas office he will be looking over his stuff today and then they will call patient to schedule [facility]08-07-2024 Telephone encounter Note* Telephone Encounter - Vanessa Carl - 02/25/2024 10:44 AM EDT Records faxed to Dr. Hayward. [facility]08-06-2024 Telephone encounter Note* Telephone Encounter - [place] Kearney - 02/24/2024 1:46 PM EDT Spoke to care team coordinator scheduler at Dr Hayward's office at [phone] at [facility]. She needed the referral in order to get patient scheduled. Faxed referral order over to their office at [phone]. I will call the office back to check on status of appointment tomorrow or next day. MONA Hand [facility]08-06-2024 Telephone encounter Note* Telephone Encounter - Denita Rai RN - 02/24/2024 12:19 PM EDT Clerical: Please refer pt to ENT. Abnormal CT neck. Recommending scope. Pt would like seen JATINDER. Local or [facility]. Whichever can see him 1st. Denita Rai RN [facility]08-06-2024 Telephone encounter Note* Telephone Encounter - Denita Ria RN - 02/24/2024 11:55 AM EDT Pt [...] since [facility] is out? Denita Rai RN [facility]08-02-2024 Telephone encounter Note* Telephone Encounter - Paty Chapman APRN.CNP - 02/20/2024 2:51 PM EDT PDMP website checked and validated. All prescriptions have been APPROPRIATELY filled. No suspiciousactivity was identified. 02/20/2024 by Paty Chapman APRN.RONAL [facility]08-02-2024 Miscellaneous Notes* Telephone Encounter - Paty Chapman APRN.CNP - 02/20/2024 2:51 PM EDT PDMP website checked and validated. All prescriptions have been APPROPRIATELY filled. No suspiciousactivity was identified. 02/20/2024 by Paty Chapman APRN.FOUNTAIN CLERK * Telephone Encounter - Arianna Saha RN - 02/20/2024 1:44 PM EDT Tc spoke to [place] [facility], He feels his pain in his arm is worse. Not new pain. Pain where he had radiation worse as they day goes on. Medication review: Lyrica- 75mg TID- stopped taking- needs refill never called when ran out. Oxycodone 10-20mg [id number] PRN- 3x per day 2 tabs at [...] Yolande Bishop - 02/20/2024 11:04 AM EDT [place] [facility] is calling today regarding Numbness and [...] birthdate. Requesting response back: call at home [phone] Yolande Bishop February 20, 2024 documented in this encounterSouthview Medical Center08-02-2024 Telephone encounter Note * Telephone Encounter - Arianna Saha RN - 02/20/2024 1:44 PM EDT Tc spoke to [place], He feels his pain in his arm is worse. Not new pain. Pain where he had radiation worse as they day goes on. Medication review: Lyrica- 75mg TID- stopped taking- needs refill never called when ran out. Oxycodone 10-20mg [id number] PRN- 3x per day 2 tabs at [...] Please review and advise. Arianna Saha RN [facility]08-02-2024 Telephone encounter Note* Telephone Encounter [...] out of the office? Denita Rai RN [facility]08-02-2024 Miscellaneous Notes* Telephone Encounter - [...] office? Denita Rai RN documented in this encounterSouthview Medical Center08-02-2024 Telephone encounter Note * Telephone Encounter - Yolande Bishop - 02/20/2024 11:[address] [facility] is calling today regarding Numbness and [...] birthdate. Requesting response back: call at home [phone] Yolande Bishop February 20, 2024 [facility]08-01-2024 Telephone encounter Note* Telephone Encounter - Rolanda Arrington - 02/19/2024 1:55 PM EDT Called [facility] office. Patient is scheduled to see Dr Beyer on 03/02 @ 10:30. Rolanda Lawrence [facility]08-01-2024 Miscellaneous Notes* Telephone Encounter - Rolanda Arrington - 02/19/2024 1:55 PM EDT Called [facility] office. Patient is scheduled to see Dr Beyer on 03/02 @ 10:30. Rolanda Lawrence * Telephone Encounter - Rolanda Arrington - 02/18/2024 1:22 PM EDT Called [facility] office spoke with Emperatriz. She states she will reach out to patient this afternoon to get scheduled. Rolanda Lawrence * Telephone Encounter - Enrique Boland - 02/09/2024 10:42 AM EDT Confirmed referral was received at Vascular. They are currently working on referral and going to call patient. * Telephone Encounter - Vanessa Carl - 02/05/2024 1:10 PM EDT Records re-faxed to [facility]. * Telephone Encounter - Rolanda Arrington - 02/05/2024 12:51 PM EDT Called [facility] office they have not received this referral and asked us to please refax it tothem. Tomasa: Please refax this referral. Thank You, Rolanda Lawrence * Telephone Encounter - Vanessa Carl - 02/04/2024 3:47 PM EDT Records faxed to [facility]. * Telephone Encounter - Yusef Pandya PA-C - 02/04/2024 2:10 PM EDT Order was already placed Yusef Pandya PA-C * Telephone Encounter - Bernadine Davis - 02/04/2024 2:05 PM EDT Please send records to [facility] joseph * Telephone Encounter - Denita Rai [...] EDT Patient will be going today to [place] for STAT US @ 2:00 pm. Lisa Figueroa documented in this encounterSouthview Medical Center07-31-2024 Telephone encounter Note * Telephone Encounter - Rolanda Arrington - 02/18/2024 1:22 PM EDT [facility] office spoke with Emperatriz. She states she will reach out to patient this afternoon to get scheduled. Rolanda Lawrence [facility]07-31-2024 Telephone encounter Note* Telephone Encounter [...] the pall med RNCC. Denita Rai RN [facility] Work Phone: [phone] Miscellaneous Notes* Telephone Encounter - Denita Rai [...] RNCC. Denita Rai RN documented in this encounterSouthview Medical Center07-29-2024 Telephone encounter Note * Telephone Encounter - Nina Grigsby MD - 02/16/2024 4:59 PM EDT Agree the patient will need to be seen by pulmonary to determine the need and what type of home oxygen is indicated. [facility]07-29-2024 Miscellaneous Notes* Telephone Encounter - [...] PCP. Pt is scheduled for pulm at [facility] but not until the end of February. Encouraged pt to contact PCP for home oxygen, as well as afollow up from recent hospital visit and previous steroid orders by them. Pt verbalized understanding and states that makes jade sense to him anyhow. Please advise if you have other recommendations. Bernadine Rodriguez RN documented in this encounterSouthview Medical Center07-29-2024 Telephone encounter Note * Telephone Encounter - Bernadine Rodriguez RN - 02/16/2024 1:27 PM EDT Pt calls stating he would like home oxygen because his breathing treatments and steroids aren't making much of a difference in his breathing. These were prescribed by his PCP. Pt is scheduled for pulm at [facility] but not until the end of February. Encouraged pt to contact PCP for home oxygen, as well as afollow up from recent hospital visit and previous steroid orders by them. Pt verbalized understanding and states that makes jade sense to him anyhow. Please advise if you have other recommendations. Bernadine Rodriguez RN [facility] Work Phone: [phone] Telephone encounter Note* Telephone Encounter - Enrique Boland - 02/16/2024 1:21 PM EDT Spoke to Pérez, gave him information on Pulmonogist appt in [place]. Transferred to Triage ( out of office) to ask about oxygen. [facility]07-29-2024 Miscellaneous Notes* Telephone Encounter - Enrique Boland - 02/16/2024 1:21 PM EDT Spoke to Pérez, gave him information on Pulmonogist appt in [place]. Transferred to Triage ( out of office) to ask about oxygen. * Telephone Encounter - [place] Kear[place] - 2024 8:42 AM EDT 3rd attempt to get a hold of patient to give date & time of appointment with [facility] Route Supervisor,however no answer & vm full. [place] * Telephone Encounter - [place] - 02/12/2024 2:17 PM EDT Tried calling patient again no answer & vm full. [place] * Telephone Encounter - [place] - 02/12/2024 10:29 AM EDT Tried calling patient to give date & time of linseed oil boiler appointment no answer & vm full.Will try back later. [place] * Telephone Encounter - [place] - 02/12/2024 10:20 AM EDT Spoke to Ton at [facility] Pulmonology in [place] at [phone] & scheduled the soonest appointment in [facility] on 03/15/2024@[address] Lucas. [place] * Telephone Encounter - Denita Rai RN - 02/10/2024 1:39 PM EDT Pt would prefer to see [facility] Route Supervisor. Clerical: Please refer. Thanks! Denita Rai RN * Telephone Encounter - Nina Grigsby MD - 02/10/2024 1:38 PM EDT Order signed. Options would be [place]. [place] [facility] [place] Also we can refer him to [facility] pulmonary in [place]. * Telephone Encounter - Denita Rai RN - 02/10/2024 12:55 PM EDT Pt notified and verbalizes understanding. [facility]M: Pt asks if you will refer him to a linseed oil boiler. Order pended if you approve. Denita Rai [...] recommendations? Denita Rai, RN documented in this encounterSouthview Medical Center07-26-2024 Telephone encounter Note * Telephone Encounter - [place] K[place] - 2024 8:42 AM EDT 3rd attempt to get a hold of patient to give date & time of appointment with [facility] Route Supervisor,however no answer & vm full. [place] [facility]07-25-2024 Telephone encounter Note* Telephone Encounter - [place] - 02/12/2024 2:17 PM EDT Tried calling patient again no answer & vm full. [place] [facility]07-25-2024 Telephone encounter Note* Telephone Encounter - [place] - 02/12/2024 10:29 AM EDT Tried calling patient to give date & time of linseed oil boiler appointment no answer & vm full.Will try back later. [place] K[place]ney [facility]07-25-2024 Telephone encounter Note* Telephone Encounter - [place] - 02/12/2024 10:20 AM EDT Spoke to Ton at [facility] Pulmonology in [place] at [phone] & scheduled the soonest appointment in [facility] on 03/15/2024@[address] Lucas. [place] Kearney [facility]07-23-2024 Telephone encounter Note* Telephone Encounter - Denita Rai, KRERY - 02/10/2024 1:39 PM EDT Pt would prefer to see [facility] Route Supervisor. Clerical: Please refer. Thanks! Denita Rai RN [facility]07-23-2024 Telephone encounter Note* Telephone Encounter - Nina Grigsby MD - 02/10/2024 1:38 PM EDT Order signed. Options would be [facility]. [place] at [facility] or [place] Also we can refer him to [facility] pulmonary in [place]. [facility]07-23-2024 Telephone encounter Note* Telephone Encounter - Denita Rai RN - 02/10/2024 12:55 PM EDT Pt notified and verbalizes understanding. [facility]: Pt asks if you will refer him to a linseed oil boiler. Order pended if you approve. Denita Rai RN [facility]07-23-2024 Telephone encounter Note* Telephone Encounter - Nina Grigsby MD - 02/10/2024 11:50 AM EDT Agree with plan. Thanks, [facility]07-23-20[facility] Telephone encounter Note* Telephone Encounter [...] have any other recommendations? Denita Rai, RN [facility]07-22-2024 Telephone encounter Note* Telephone Encounter - Enrique Boland - 02/09/2024 10:42 AM EDT Confirmed referral was received at [facility]. They are currently working on referral and going to call patient. [facility]07-18-[facility] Telephone encounter Note* [facility] - [facility] 02/05/2024 1:10 PM EDT Records re-faxed to [facility]. [facility]07-18-2024 Telephone encounter Note* Telephone Encounter - Rolanda Arrington - 02/05/2024 12:51 PM EDT Called [facility] Vascular office they have not received this referral and asked us to please refax it tothem. Tomasa: Please refax this referral. Thank You, Rolanda Oneil Pss [facility]07-17-2024 Telephone encounter Note* Telephone Encounter - Vanessa Carl - 02/04/2024 3:47 PM EDT Records faxed to [facility]. [facility]07-17-2024 Telephone encounter Note* Telephone Encounter - uYsef Pandya PA-C - 02/04/2024 2:10 PM EDT Order was already placed Yusef Pandya PA-C [facility]07-17-2024 Telephone encounter Note* Telephone Encounter - Bernadine Davis - 02/04/2024 2:05 PM EDT Please send records to Erma ruiz [facility]07-17-2024 Telephone encounter Note* Telephone Encounter - Denita Rai RN - 02/04/2024 1:36 PM EDT Pt notified and agrees to vascular consult. WILIAM/Yusef: Order for consult pended. Clerical: Pt would prefer to see a local physician. Please refer him to Dr Beyer/Dr Sanchez's group. Dx: Left arm swelling. Periodic cyanosis and pain. Denita Rai RN [facility] Work Phone: [phone]) 600-666407-17-2024 Telephone encounter Note* Telephone Encounter - Denita Rai RN - 02/04/2024 9:02 AM EDT Call placed to pt. Message received stating the number has calling restrictions. Unable to leave a message. Denita Rai RN [facility]07-17-2024 Telephone encounter Note* Telephone Encounter - Yusef Pandya PA-C - 02/04/2024 8:10 AM EDT Please inform patient of results. He should likely see vascular due to the periodic cyanosis and pain and swelling to rule out any vascular issues. Yusef Pandya PA-C [facility]07-17-2024 Telephone encounter Note* Telephone Encounter - Denita Rai RN - 02/04/2024 7:59 AM EDT Yusef: US was negative for DVT or superficial thrombus. Report scanned. Denita Rai RN [facility]07-17-2024 Telephone encounter Note* Telephone Encounter - Cristel [facility] Vanessa Beatty - 02/04/2024 7:56 AM EDT Report scanned. [facility]07-16-2024 Telephone encounter Note* Telephone Encounter - Denita Rai RN - 02/03/2024 4:33 PM EDT Tomasa: Please scan results when available. Thanks! Denita Rai RN [facility]07-16-2024 Telephone encounter Note* Telephone Encounter - Lisa Figueroa - 02/03/2024 12:13 PM EDT Patient will be going today to [place] for STAT US @ 2:00 pm. Lisa Figueroa [facility]07-16-2024 History of Present illness Narrative* Yusef Pandya PA-C - 02/03/2024 11:30 AM EDT PATIENT NAME: Cristal Gu DATE: 02/03/2024 PRIMARY CARE PHYSICIAN: Dr. Christina Azul OTHER PHYSICIANS: Dr. Verito Whelan, Dr. Marianne Fields, Dr. Damon Tse ([facility]) Christina Tavarez (Elements copied from [...] (HCC) Peripheral arterial disease (HCC) 2019 R SEPARATIONS SCIENTIST stent PAST SURGICAL HISTORY: PAST SURGICAL HISTORY Procedure Laterality Date BACK SURGERY HX 2019 CABG (4) VEIN GRAFTS & ARTERIAL GRAFT(S) 2016 LOWER EXTREMITY GENOMICS SCIENTIST W/WO STENT Right 2019 right common femoral [...] pulse is palpable and strong. PATHOLOGY: 10/21/2022 [id number] NGS analysis KRAS G12C mutation present, 5.2% [...] No hypermetabolic osseous lesions 01/03/2023 [place] [place] Bilateral hilar soft tissue nodules concerning for [...] prior study, as above. 04/12/2022 Bone scan ([facility]) Degenerative findings. No evidence of metastatic [...] underwent a repeat chest CT 10/21/2023 w [facility] revealed slight growth of several pulm [...] uses Percocet as needed. Continue follow-up with [facility] palliative medicine. 7. Abnormal LFTs Labs [...] which included preparing to see the patient, [id number] patient care, completing clinical documentation, performing a medically appropriate examination, counseling and educating the patient/family/caregiver, ordering medications, tests, or p rocedures, independently interpreting results (not separately reported), communicating results to the patient/family/caregiver, and care coordination (not separately reported). documented [place] encounter[place] [address]-16-[address] [facility] Telephone encounter Note* Telephone Encounter - Yusef Pandya PA-C - 01/27/2024 4:27 PM EDT Lab orders placed Yusef Pandya PA-C' [facility]07-09-2024 Miscellaneous Notes* Telephone Encounter - Yusef Pandya PA-C - 01/27/2024 4:27 PM EDT Lab orders placed Yusef Pandya PA-C' * Telephone Encounter - Pavithra Jacinto MA - 01/27/2024 11:38 AM EDT Patient has an appt on 02/03/24. Would you like additional labs, if so place orders. Thanks. MICHOACANO Stephens documented in [facility] encounter[facility] Telephone encounter Note * Telephone Encounter - Pavithra Jacinto MA - 01/27/2024 11:38 AM EDT Patient has an appt on 02/03/24. Would you like additional labs, if so place orders. Thanks. MICHOACANO Stephens [facility]06-25-2024 Telephone encounter Note* Telephone Encounter [...] Tapia RN January 13, 2024 1:19 PM [facility]06-25-2024 Miscellaneous Notes* Telephone Encounter - [...] pain regimen. Hannah SAMANIEGO documented in this encounterSouthview Medical Center06-25-2024 Telephone encounter Note * Telephone Encounter - Hannah Ortiz - 01/13/2024 12:52 PM EDT Pérez calling regarding the fentanyl patches. He states that he hasn't used them, but states that the other medication is helping with the pain. He has to take the medication before he gets out of beddue to the pain. Patient needs clarification on pain regimen. Hannah SAMANIEGO [facility]06-21-2024 Note* Addendum Note - Estella Fish APRN.CNP - 01/09/2024 2:09 PM EDTAddended by: ESTELLA FISH on: 01/09/2024 02:09 PM Modules accepted: Orders [facility]06-21-2024 Miscellaneous Notes* Addendum Note - [...] Confirmed he would like it sent to [facility] pharmacy. Let him know it may need [...] Trazodone 50 mg tablets to his [facility] for insomnia. Let him know to [...] Trazodone 50 mg at bedtime. Sent to [facility] in [place] * Telephone Encounter - Bernadine Rodriguez RN - 01/09/2024 10:39 AM EDT Pt calls stating he's been having problems sleeping and would like something for this. States I'vetried it all when asked if he's tried melatonin, tylenol pm, or benadryl. Please advise Bernadine Rodriguez RN documented in this encounterSouthview Medical Center06-21-2024 Note* Addendum Note - Julieth Tapia RN - 01/09/2024 1:20 PM EDTAddended by: JULIETH TAPIA on: 01/09/2024 01:20 PM Modules accepted: Orders [facility]06-21-2024 Telephone encounter Note* Telephone Encounter [...] Confirmed he would like it sent to [facility] pharmacy. Let him know it may need [...] Please review and advise. Julieth Tapia RN [facility]06-21-2024 Telephone encounter Note* Telephone Encounter [...] and not have end of dose pain [facility]06-21-2024 Telephone encounter Note* Telephone Encounter [...] Trazodone 50 mg tablets to his [facility] for insomnia. Let him know to [...] Tapia RN January 09, 2024 11:47 AM [facility]06-21-2024 Telephone encounter Note* Telephone Encounter - Estella Fish APRN.RONAL - 01/09/2024 11:27 AM EDT We can try Trazodone 50 mg at bedtime. Sent to [facility] in [place] [facility]06-21-2024 Telephone encounter Note* Telephone Encounter - Bernadine Rodriguez RN - 01/09/2024 10:39 AM EDT Pt calls stating he's been having problems sleeping and would like something for this. States I'vetried it all when asked if he's tried melatonin, tylenol pm, or benadryl. Please advise Bernadine Rodriguez RN [facility] Work Phone: [phone]) 119-370706-07-2024 Telephone encounter Note* Telephone Encounter - Julieth [...] having contact numbers for the office and weatherization operations manager. Julieth Tapia RN December 26, 2023 3:06 PM [facility]06-07-2024 Miscellaneous Notes* Telephone Encounter - [...] having contact numbers for the office and weatherization operations manager. Julieth Tapia RN December 26, 2023 3:06 PM * Telephone Encounter - Yolande Bishop - 12/26/2023 1:21 PM EDT [place] is calling today regarding Insurance Authorization for oxycodone. Patient states thepharmacy also told him he needs something else but he could not remember. Patient has been identified by name and birthdate. Requesting response back: N/A, no action needed [phone] (cell) Yolande Bishop December 26, 2023 documented in this encounterSouthview Medical Center06-07-2024 Miscellaneous Notes* Telephone Encounter - Julieth Tapia RN - 12/26/2023 2:29 PM EDT Prior Authorization Documentation Prior authorization requested for: MEDICATION Oxycodone IR 10 mg tablets Submitted via Cover AppFirst Meds/[employer] [id number] Insurance Company Name: [employer] [facility] Name: DDM and Authorization approval #: AWAITING DETERMINATION Dates of Approval: from ? to ? Patient Assistance Needed: No Time Spent 10 Julieth Tapia RN December 26, 2023 documented in this encounterSouthview Medical Center06-07-2024 Telephone encounter Note * Telephone Encounter - Julieth Tapia RN - 12/26/2023 2:29 PM EDT Prior Authorization Documentation Prior authorization requested for: MEDICATION Oxycodone IR 10 mg tablets Submitted via Cover AppFirst Meds/[place] [id number] Insurance Company Name: [employer] [facility] Name: DD and Authorization approval #: AWAITING DETERMINATION Dates of Approval: from ? to ? Patient Assistance Needed: No Time Spent 10 Julieth Tapia RN December 26, 2023 [facility]06-07-2024 Telephone encounter Note* Telephone Encounter - Julieth Tapia RN - 12/26/2023 1:49 PM EDT Prior Authorization Documentation Prior authorization requested for: MEDICATION Pregablin 75 mcg capsules Submitted via Cover AppFirst Meds/Diamond [id number] Insurance Company Name: [employer] [facility] Name: DD and pproved today Your request has been approved Authorization Expiration Date: 12/26/2023- 07/20/2024. Pharmacy updated. Time Spent 10 Julieth Tapia RN December 26, 2023 [facility]06-07-2024 Miscellaneous Notes* Telephone Encounter - Julieth Tapia RN - 12/26/2023 1:49 PM EDT Prior Authorization Documentation Prior authorization requested for: MEDICATION Pregablin 75 mcg capsules Submitted via Cover My Meds/Diamond [id number] Insurance Company Name: [employer] Pharmacy Name: [facility] and pproved today Your request has been approved Authorization Expiration Date: 12/26/2023- 07/20/2024. Pharmacy updated. Time Spent 10 Julieth Tapia RN December 26, 2023 documented in this encounterSouthview Medical Center06-07-2024 Telephone encounter Note * Telephone Encounter - Yolande Bishop - 12/26/2023 1:21 PM EDT Cristal Gu is calling today regarding Insurance Authorization for oxycodone. Patient states thepharmacy also told him he needs something else but he could not remember. Patient has been identified by name and birthdate. Requesting response back: N/A, no action needed [phone] (cell) Yolande Bishop December 26, 2023 [facility]06-07-2024 Telephone encounter Note* Telephone Encounter [...] and Oxy were sent to his [facility]. Nurse encouraged patient to call with any questions/concerns/symptom related issues. Patient confirmed having contact numbers for the office and weatherization operations manager. [facility]06-07-2024 Miscellaneous Notes* Telephone Encounter - [...] and Oxy were sent to his [facility]. Nurse encouraged patient to call with any questions/concerns/symptom related issues. Patient confirmed having contact numbers for the office and weatherization operations manager. * Addendum Note - Estella Fish APRN.CNP [...] 8:19 AM EDT Care Coordination Triage Note [facility] Situation: Received page that patient called saying [...] 26, 2023 8:19 AM documented in this encounterSouthview Medical Center06-07-2024 Note* Addendum Note - Estella Fish APRN.CNP - 12/26/2023 12:23 PM EDTAddended by: ESTELLA FISH on: 12/26/2023 12:23 PM Modules accepted: Orders [facility]06-07-2024 Telephone encounter Note* Telephone Encounter [...] every 4 hours - Agree with Dex [facility]06-07-2024 Telephone encounter Note* Telephone Encounter - Denita Rai RN - 12/26/2023 11:00 AM EDT Pt notified, verbalizes understanding, and states that he has plenty of dex at home. Denita Rai RN [facility] Work Phone: [phone] Telephone encounter Note* Telephone Encounter - Denita Rai RN - 12/26/2023 10:59 AM EDT Images from the original note were not included. Jyoti Limon MD You5 minutes ago (10:53 AM) Yes seemed to work before. Thank.s [facility]06-07-2024 Telephone encounter Note* Telephone Encounter - Denita Rai RN - 12/26/2023 10:46 AM EDT Pt was originally on Dexamethasone 4 mg BID. Is this the dose you'd like him resume? Denita Rai RN [facility]06-07-2024 Telephone encounter Note* Telephone Encounter - Denita Rai RN - 12/26/2023 10:46 AM EDT Images from the original note were not included. Jyoti Limon MD You; [facility]t [facility] Rad Nurse Pool4 minutes ago (10:41 AM) Consider reinitiating steroids. Radiation may have ongoing improvement with time. 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 [facility]06-07-2024 Telephone encounter Note* Telephone Encounter - Denita Rai RN - 12/26/2023 8:50 AM EDT JEROME: Please see Julieth's message below. Thank you! Denita Rai RN [facility]06-07-2024 Telephone encounter Note* Telephone Encounter - Julieth Tapia RN - 12/26/2023 8:19 AM EDT Care Coordination Triage Note [facility] Situation: Received page that patient called saying [...] Tapia RN December 26, 2023 8:19 AM [facility]06-05-2024 Telephone encounter Note* Telephone Encounter - Denita Rai RN - 12/24/2023 2:03 PM EDT Pt notified of script. Denita Rai RN [facility] Work Phone: [phone] Miscellaneous Notes* Telephone Encounter - Denita Rai [...] advise. Denita Rai RN documented in this encounterSouthview Medical Center06-05-2024 Telephone encounter Note * Telephone Encounter - Denita Rai RN - 12/24/2023 11:34 AM EDT Patient phones requesting refills as follows: Requested Prescriptions Pending Prescriptions Disp Refills levothyroxine (SYNTHROID) 75 mcg tablet 30 tablet 1 Sig: Take 1 tablet by mouth once daily. Please review and advise. Denita Rai RN [facility]06-05-2024 History of Present illness Narrative* Jyoti Limon MD - 12/24/2023 12:00 AM EDT [facility] Radiation Oncology Department RADIATION ONCOLOGY - COMPLETION NOTE PATIENT: CRISTAL GUDOB: 1955 DATES OF TREATMENT: 12/10/2023 to 12/24/2023 DIAGNOSIS: Lung cancer, left upper lobe, pleomorphic carcinoma, stage IIb [id number], stage IIB AJCC 8th edition (chest wall invasion), PD-L1 95%, KRAS G12C mutation present AREA TREATED: Right Oropharynx [place] DELIVERED DOSE: Area: Right Oropharynx with daily [...] , , , . documented in this encounterSouthview Medical Center06-05-[address] [facility]-[address] [facility]06-03-20[facility] History of Present illness Narrative* Nina Grigsby MD - 12/22/2023 10:26 PM EDT PATIENT NAME: Cristal Gu DATE: 12/23/2023 PRIMARY CARE PHYSICIAN: Dr. Christina Azul OTHER PHYSICIANS: Dr. Verito Whelan, Dr. Marianne Fields, Dr. Damon Tse ([facility]) Christina Tavarez Portions of this [...] (HCC) Peripheral arterial disease (HCC) 2019 R SEPARATIONS SCIENTIST stent PAST SURGICAL HISTORY: PAST SURGICAL HISTORY Procedure Laterality Date BACK SURGERY HX 2019 CABG (4) VEIN GRAFTS & ARTERIAL GRAFT(S) 2016 LOWER EXTREMITY GENOMICS SCIENTIST W/WO STENT Right 2019 right common femoral [...] involving face and upper back. PATHOLOGY: 10/21/2022 [id number] NGS analysis KRAS G12C mutation present, 5.2% [...] No hypermetabolic osseous lesions 01/03/2023 [place] [place] Bilateral hilar soft tissue nodules concerning for [...] prior study, as above. 04/12/2022 Bone scan ([facility]) Degenerative findings. No evidence of metastatic [...] underwent a repeat chest CT 10/21/2023 [facility] revealed slight growth of several pulm [...] tonsil. The patient was initially seen by [facility] on 07/26/2021, and clinical evaluation was most consistent with inflammatory/post-infectious findings. The patient was advised to stop chewing tobacco and continue close observation. Follow-up PET 05/12/2023 revealed significant increased size and metabolism of the right tonsillar mass. The patient was reevaluated by [facility] May 2023 and it was [...] uses Percocet as needed. Continue follow-up with [facility] palliative medicine. 7. Abnormal LFTs Labs [...] accordingly. Nina Grigsby MD documented in this encounterSouthview Medical Center06-03-[address] [facility]06-03-2024 History of Present illness Narrative* Jyoti Limon MD - 12/22/2023 12:35 PM EDT Radiation Oncology - On Treatment Review (OTR) Note PATIENT NAME: rCistal Gu PATIENT DIAGNOSIS: Lung cancer, non-small cell [...] oriented x 3 appropriate, extremity strength intact ferry hand strength good Radiation dermatitis: No IMAGING/LAB RESULTS: [...] discussed. Jyoti Limon MD documented in this encounterSouthview Medical Center05-29-2024 Telephone encounter Note * Telephone [...] Tapia RN December 17, 2023 9:03 AM [facility]05-29-2024 Miscellaneous Notes* Telephone Encounter - [...] advise. Rosibel Wheeler RN documented in this encounterSouthview Medical Center05-28-2024 Telephone encounter Note * Telephone [...] pain returns. Please advise. Rosibel Wheeler RN [facility]05-28-[address] [facility]05-28-2024 History of Present illness Narrative* Jyoti Limon [...] oriented x 3 appropriate, extremity strength intact ferry hand strength good Radiation dermatitis: No IMAGING/LAB RESULTS: None Treatment chart checked: Yes Patient treatment site reviewed and verified:Yes Port films reviewed and current:Yes Medications started: None ASSESSMENT/PLAN: Continue radiation. Continue follow-up with palliative for pain control. Will lower his Decadron from 4 mg twice daily to a dose of 4 mg daily. Jyoti Limon MD documented in this encounterSouthview Medical Center05-22-[address] [facility]05-22-2024 History of Present illness Narrative* Jyoti Limon [...] prescribed. Jyoti Limon MD documented in this encounterSouthview Medical Center05-20-2024 NoteHNO ID: [id number] Author: Jyoti LIMON MD Service: ? Author Type: Physician Type: Progress Notes Filed: 12/08/2023 10:05 Note Text: [facility]05-20-2024 History of Present illness Narrative* Jyoti Limon MD - 12/08/2023 10:04 AM EDT sim documented in this encounterSouthview Medical Center05-15-2024 Telephone encounter Note * Telephone Encounter - Rosibel WheelerSHUKRI - 12/03/2023 12:21 PM EDT FYI--Pérez was seen in consult by Dr. Buchanan yesterday. He was to have a [facility] for radiation therapy but was not able to lie flat for the [facility] due to pain in his left neck, shoulder, and upper chest. He is prescribed oxycodone IR 15mg si tablet every 4 hours prn. When he arrived yesterday he stated he took 2 tablets in the a.m. due to his pain and that it wasn't helping. 1300 oxycodone 15mg sig: take one tablet now per Dr. Limon. Patient states last dose of [id number] 2 tabs was at 0900. [facility] was rescheduled today and patient notified to [...] to lay on his back for the [facility]. I confirmed that he is taking Neurontin 400mg TID. I told him he needs to contact Christina with [facility] if his pain medication is not effective. He said when he's at home resting his pain is controlled with what is prescribed. He said he is aware to call Christina if needed for medication adjustment and has her phone number. He is scheduled to start radiation therapy 12/10/23. Thanks Rosibel Wheeler RN [facility]05-15-2024 Miscellaneous Notes* Telephone Encounter - Rosibel Wheeler LPN - 12/03/2023 12:21 PM EDT FYI--Pérez was [...] Dr. Limon. Patient states last dose of [id number] 2 tabs was at 0900. SIM was [...] him he needs to contact Christina with [facility] if his pain medication is not effective. He said when he's at home resting his pain is controlled with what is prescribed. He said he is aware to call Christina if needed for medication adjustment and has her phone number. He is scheduled to start radiation therapy 12/10/23. Thanks Rosibel Wheeler RN documented in this encounterSouthview Medical Center05-15-2024 History of Present illness Narrative* Jyoti Limon MD - 12/03/2023 12:00 AM EDT CRISTAL GU [id number] 12/03/2023 [facility] Radiation Oncology Department SIMULATION NOTE DATE OF SIMULATION: 12/03/2023 THERAPIST: Sapna Severino MACHINE: [email or web address] DIAGNOSIS: Malignant neoplasm of upper lobe, left [...] / CDT 42:54 PM documented in this encounterSouthview Medical Center05-15-2024 History of Present illness Narrative* Jyoti Limon MD - 12/03/2023 12:00 AM EDT CRISTAL GU [id number] 12/03/2023 [facility] Department of Radiation Oncology Treatment Planning [...] Limon M.D. 412:46 PM documented in this encounterSouthview Medical Center05-15-[address] [facility]05-15-[address] [facility]05-14-[address] [facility]05-14-2024 History of Present illness Narrative* Jyoti Limon MD - 12/02/2023 11:14 AM EDT Radiation Oncology - Follow Up Note PATIENT NAME: Cristal Gu PATIENT DIAGNOSIS: Lung cancer, left upper lobe, pleomorphic carcinoma, stage IIb [id number], stage IIB AJCC 8th edition (chest wall [...] left upper lobe, pleomorphic carcinoma, stage IIb [id number], stage IIB AJCC 8th edition (chest wall [...] Jyoti Limon MD cc: Christina Azul [address] [place] [address] documented in this encounterSouthview Medical Center05-13-[address] [facility]05-13-2024 History of Present illness Narrative* Nina Grigsby MD - 12/01/2023 9:00 PM EDT PATIENT NAME: Cristal Gu DATE: 12/02/2023 PRIMARY CARE PHYSICIAN: Dr. Christina Auzl OTHER PHYSICIANS: Dr. eVrito Whelan, Dr. Marianne Fields, Dr. Damon Tse ([facility]) Dr. Limon, Christina Fish Portions [...] (HCC) Peripheral arterial disease (HCC) 2019 R SEPARATIONS SCIENTIST stent PAST SURGICAL HISTORY: PAST SURGICAL HISTORY Procedure Laterality Date BACK SURGERY HX 2019 CABG (4) VEIN GRAFTS & ARTERIAL GRAFT(S) 2016 LOWER EXTREMITY GENOMICS SCIENTIST W/WO STENT Right 2019 right common femoral [...] involving face and upper back. PATHOLOGY: 10/21/2022 [id number] NGS analysis KRAS G12C mutation present, 5.2% [...] No hypermetabolic osseous lesions 01/03/2023 [place] [place] Bilateral hilar soft tissue nodules concerning for [...] prior study, as above. 04/12/2022 Bone scan ([facility]) Degenerative findings. No evidence of metastatic [...] +/- immunotherapy. He will also follow-up with [facility] palliative medicine to discuss more aggressive pain medications. 2. Carcinoma of the right tonsil Baseline PET and CT neck revealed suspicious abnormalities in the right tonsil. The patient was initially seen by [facility] on 07/26/2021, and clinical evaluation was most consistent with inflammatory/post-infectious findings. The patient was advised to stop chewing tobacco and continue close observation. Follow-up PET 05/12/2023 revealed significant increased size and metabolism of the right tonsillar mass. The patient was reevaluated by [facility] May 2023 and it was [...] uses Percocet as needed. Continue follow-up with [facility] palliative medicine. 7. Abnormal LFTs Labs [...] accordingly. Nina Grigsby MD documented in this encounterSouthview [facility] Center05-07-[address] [facility] History of Present illness Narrative* Deborah Warner RN - 11/25/2023 11:05 AM EDT Pt here for PET scan. States has not been eating or drinking much doesn't have an appetite and feels weak. Denies N/V/D. Dr. Grigsby aware and Whitney Rai RNCC updated. New orders for 1 L NS over 1 hr. Pt states understanding with POC. Deborah Warner RN documented in this encounterSouthview Medical Center05-07-2024 History of Present illness Narrative* Olga Lidia Rosas RN - 11/25/2023 11:00 AM EDTSummary: IRB [id number] Informed Consent CASE [id number] (IRB [id number]): Tissue [...] RN Clinical Research Nurse documented in this encounterSouthview Medical Center05-07-[address] [facility] [facility]05-07-[address] [facility]05-06-2024 Telephone encounter Note* Telephone Encounter - Hannah Oglesby RN - 11/24/2023 9:47 AM EDT Please sign pended labs if agreeable-will draw with PET tomorrow. F/U with you 12/01 Thank You! Hannah Oglesby RN [facility]05-06-2024 Miscellaneous Notes* Telephone Encounter - Hannah Oglesby RN - 11/24/2023 9:47 AM EDT Please sign pended labs if agreeable-will draw with PET tomorrow. F/U with you 12/01 Thank You! Hannah Oglesby RN documented in this encounterCleveland [id number] Instructions* Patient Instructions* Estella Fish APRN.CNP - 11/21/2023 10:25 AM EDT Estella Fish CNP Department of Palliative and Supportive Care Palliative Care - Specialty services in symptom management and support For questions or prescription refills, call: [phone] Friday - Friday 9AM-5PM LASHAY Evans, RN - Structural Draftsman Please call 3-5 days in advance for medication refills Evenings, Weekends, Holidays: [phone] (ask for palliative medicine on-call provider) For appointments, cancellations or reschedule, call: [phone] documented in this encounterSouthview Medical Center05-03-2024 History of Present illness Narrative* [...] a day, 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 He has been [...] helpful for pain and anxiety. Modified ESAS ([place] Symptom Assessment Scale) Information Provided By: Patient [...] ear normal. Nose: Nose normal. Mouth/Throat: Lips: Daphne. Mouth: Mucous membranes are moist. No oral [...] was identified. 11/21/2023 by Estella Fish, RACHEL, TOWER EXCAVATOR OPERATOR.FOUNTAIN CLERK Urine Screen Lab Results Component Value Date [...] 6-8 Weeks in person Estella Fish NP, OZZIE.FOUNTAIN CLERK November 21, 2023 9:44 AM This note may have been partially generated using the [employer] voice recognition system. While every effort was made to correct voice recognition errors, kindly be aware that some errors may occasionally occur. documented in this encounterSouthview Medical Center05-03-[address] [facility]04-23-2024 Telephone encounter Note* Telephone Encounter - Denita [...] his Pall Med appointment. Call transferred to [facility], for scheduling. Denita Rai RN [facility] Work Phone: [phone] Miscellaneous Notes* Telephone Encounter - Denita Rai [...] his Pall Med appointment. Call transferred to [facility], for scheduling. Denita Rai RN documented in this encounterSouthview Medical Center04-17-2024 Miscellaneous Notes* Telephone Encounter - [...] Denita Rai RN documented in this encounterCleveland [id number] Miscellaneous Notes* Telephone Encounter - Maricruz Lopes [...] kidney function are stable. documented in this encounterSouthview Medical Center04-16-[address] [facility]04-16-2024 History of Present illness Narrative* Dominique Murphy, [...] diet such as recommendations from [employer] [place] [employer] focusing on lean proteins, whole grains, [...] learning: None Educational materials provided: [employer] [place] [employer], Heart Healthy Plate Anthropometrics: Height: Last [...] Dosing Weight: 56.3 kg Estimated kilocalorie needs: 2655-2954 kilocalories determined by 30-35 kcal/kg Estimated protein needs: 56-84 grams determined by 1.0-1.5 g/kg Dosing weight Estimated fluid needs: ~1217-6759 milliliters based on 1 mL per kcal [...] Murphy MS, RDN, LD documented in this encounterSouthview Medical Center04-15-[address] [facility]04-15-2024 History of Present illness Narrative* Nina Grigsby MD - 11/03/2023 8:46 PM EDT PATIENT NAME: Cristal Gu DATE: 11/04/2023 PRIMARY CARE PHYSICIAN: Dr. Christina Azul OTHER PHYSICIANS: Dr. Verito Whelan, Dr. Marianne Fields, Dr. Damon Tse ([facility]) Dr. Limon, Christina Fish Portions [...] (HCC) Peripheral arterial disease (HCC) 2019 R SEPARATIONS SCIENTIST stent PAST SURGICAL HISTORY: PAST SURGICAL HISTORY Procedure Laterality Date BACK SURGERY HX 2019 CABG (4) VEIN GRAFTS & ARTERIAL GRAFT(S) 2016 LOWER EXTREMITY GENOMICS SCIENTIST W/WO STENT Right 2019 right common femoral [...] involving face and upper back. PATHOLOGY: 10/21/2022 [id number] NGS analysis KRAS G12C mutation present, 5.2% [...] No hypermetabolic osseous lesions 01/03/2023 [place] [place] Bilateral hilar soft tissue nodules concerning for [...] prior study, as above. 04/12/2022 Bone scan ([facility]) Degenerative findings. No evidence of metastatic [...] tonsil. The patient was initially seen by [facility] on 07/26/2021, and clinical evaluation was most consistent with inflammatory/post-infectious findings. The patient was advised to stop chewing tobacco and continue close observation. Follow-up PET 05/12/2023 revealed significant increased size and metabolism of the right tonsillar mass. The patient was reevaluated by [facility] May 2023 and it was [...] uses Percocet as needed. Continue follow-up with [facility] palliative medicine. 7. Abnormal LFTs Labs [...] accordingly. Nina Grigsby MD documented in this encounterSouthview Medical Center04-02-2024 [facility]04-02-2024 [facility]04-02-2024 Miscellaneous Notes * Telephone Encounter - [...] have left at home documented in this encounterSouthview Medical Center04-01-[address] [facility]04-01-2024 History of Present illness Narrative* Nina Grigsby MD - 10/20/2023 5:22 AM EDT PATIENT NAME: Cristal Gu DATE: 10/20/2023 PRIMARY CARE PHYSICIAN: Dr. Christina Azul OTHER PHYSICIANS: Dr. Verito Whelan, Dr. Marianne Fields, Dr. Damon Tse ([facility]) Dr. Limon, Christina Fish Portions [...] (HCC) Peripheral arterial disease (HCC) 2019 R SEPARATIONS SCIENTIST stent PAST SURGICAL HISTORY: PAST SURGICAL HISTORY Procedure Laterality Date BACK SURGERY HX 2019 CABG (4) VEIN GRAFTS & ARTERIAL GRAFT(S) 2016 LOWER EXTREMITY GENOMICS SCIENTIST W/WO STENT Right 2019 right common femoral [...] involving face and upper back. PATHOLOGY: 10/21/2022 [id number] NGS analysis KRAS G12C mutation present, 5.2% [...] No hypermetabolic osseous lesions 01/03/2023 [place] [place] Bilateral hilar soft tissue nodules concerning for [...] prior study, as above. 04/12/2022 Bone scan ([facility]) Degenerative findings. No evidence of metastatic [...] tonsil. The patient was initially seen by [facility] on 07/26/2021, and clinical evaluation was most consistent with inflammatory/post-infectious findings. The patient was advised to stop chewing tobacco and continue close observation. Follow-up PET 05/12/2023 revealed significant increased size and metabolism of the right tonsillar mass. The patient was reevaluated by [facility] May 2023 and it was [...] 2015. Status post CABG x 4 in [place] 2015. Currently stable. Continue management per PCP/cardiology. [...] uses Percocet as needed. Continue follow-up with [facility] palliative medicine. 7. Abnormal LFTs Labs [...] accordingly. Nina Grigsby MD documented in this encounterSouthview Medical Center03-04-[address] [facility]03-04-2024 History of Present illness Narrative* Dominique Murphy RD - 09/22/2023 10:07 AM EST Oncology Nutrition Therapy Reassessment Patient left after office visit with physician and did not stay for scheduled dietitian appointment. Signed by: Dominique Murphy MS, RDN, LD documented in this encounterSouthview Medical Center03-04-[address] [facility]03-04-2024 History of Present illness Narrative* Nina Grigsby MD - 09/22/2023 5:35 AM EST PATIENT NAME: Cristal Gu DATE: 09/22/2023 PRIMARY CARE PHYSICIAN: Dr. Christina Azul OTHER PHYSICIANS: Dr. Verito Whelan, Dr. Marianne Fields, Dr. Damon Tse ([facility]) Christina Tavarez Portions of this [...] (HCC) Peripheral arterial disease (HCC) 2019 R SEPARATIONS SCIENTIST stent PAST SURGICAL HISTORY: PAST SURGICAL HISTORY Procedure Laterality Date BACK SURGERY HX 2019 CABG (4) VEIN GRAFTS & ARTERIAL GRAFT(S) 2016 LOWER EXTREMITY GENOMICS SCIENTIST W/WO STENT Right 2019 right common femoral [...] involving face and upper back. PATHOLOGY: 10/21/2022 [id number] NGS analysis KRAS G12C mutation present, 5.2% [...] No hypermetabolic osseous lesions 01/03/2023 [place] [place] Bilateral hilar soft tissue nodules concerning for [...] prior study, as above. 04/12/2022 Bone scan ([facility]) Degenerative findings. No evidence of metastatic [...] tonsil. The patient was initially seen by [facility] on 07/26/2021, and clinical evaluation was most consistent with inflammatory/post-infectious findings. The patient was advised to stop chewing tobacco and continue close observation. Follow-up PET 05/12/2023 revealed significant increased size and metabolism of the right tonsillar mass. The patient was reevaluated by [facility] May 2023 and it was [...] uses Percocet as needed. Continue follow-up with [facility] palliative medicine. 7. Abnormal LFTs Labs [...] wellbeing. Nina Grigsby MD documented in this encounterSouthview Medical Center02-26-[address] [facility]02-07-2024 Miscellaneous Notes* Telephone Encounter - Patricia Miller [...] a new prescription be sent to [facility] in [place]. WILIAM/Patricia: script pended. Denita Rai RN * [...] TFTs on return visit. documented in this encounterSouthview Medical Center02-05-[address] [facility]02-05-2024 History of Present illness Narrative* Nina Grigsby MD - 08/25/2023 6:17 AM EST PATIENT NAME: Cristal uG DATE: 08/25/2023 PRIMARY CARE PHYSICIAN: Dr. Christina Azul OTHER PHYSICIANS: Dr. Verito Whelan, Dr. Marianne Fields, Dr. Damon Tse's ([facility]) Dr. 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 With recent antibiotics his skin lesions [...] (HCC) Peripheral arterial disease (HCC) 2019 R SEPARATIONS SCIENTIST stent PAST SURGICAL HISTORY: PAST SURGICAL HISTORY Procedure Laterality Date BACK SURGERY HX 2019 CABG (4) VEIN GRAFTS & ARTERIAL GRAFT(S) 2016 LOWER EXTREMITY GENOMICS SCIENTIST W/WO STENT Right 2019 right common femoral [...] involving face and upper back. PATHOLOGY: 10/21/2022 [id number] NGS analysis KRAS G12C mutation present, 5.2% [...] No hypermetabolic osseous lesions 01/03/2023 [place] [place] Bilateral hilar soft tissue nodules concerning for [...] prior study, as above. 04/12/2022 Bone scan ([facility]) Degenerative findings. No evidence of metastatic [...] tonsil. The patient was initially seen by [facility] on 07/26/2021, and clinical evaluation [...] accordingly. Nina Grigsby MD documented in this encounterSouthview Medical Center01-26-[address] [facility]01-19-2024 NoteHNO ID: [id number] Author: ESTELLA FISH APRN.FOUNTAIN CLERK Service: ? Author Type: Nurse Practitioner Type: Progress Notes Filed: 08/08/2023 13:54 Note Text: No showMercy Health St. [facility]01-08-[address] [facility] 06-30-[address] [facility]12-11-2023 History of Present illness Narrative* Nina Grigsby MD - 06/30/2023 7:59 AM EST PATIENT NAME: Cristal Gu DATE: 06/30/2023 PRIMARY CARE PHYSICIAN: Dr. Christina Azul OTHER PHYSICIANS: Dr. Verito Whelan, Dr. Marianne Fields, Dr. Damon Tse's ([facility]) Dr. Limon Portions of this encounter note have been copied from the note from 06/02/2023 and has been updatedwhere appropriate, and reflect my current medical decision making from today. CC: This is a 68 year old male with metastatic lung cancer, seen for scheduled follow-up and continued treatment. INTERIM HISTORY: Since the patient's last visit here he was reevaluated by [facility] on 05/27/2023. Itwas felt the right [...] no significant medical changes. He remains in [facility] for his metastatic lung cancer, and [...] (HCC) Peripheral arterial disease (HCC) 2019 R SEPARATIONS SCIENTIST stent PAST SURGICAL HISTORY: PAST SURGICAL HISTORY Procedure Laterality Date BACK SURGERY HX 2019 CABG (4) VEIN GRAFTS & ARTERIAL GRAFT(S) 2016 LOWER EXTREMITY GENOMICS SCIENTIST W/WO STENT Right 2019 right common femoral [...] involving face and upper back. PATHOLOGY: 10/21/2022 [id number] NGS analysis KRAS G12C mutation present, 5.2% [...] No hypermetabolic osseous lesions 01/03/2023 [place] [place] Bilateral hilar soft tissue nodules concerning for [...] prior study, as above. 04/12/2022 Bone scan ([facility]) Degenerative findings. No evidence of metastatic [...] tonsil. The patient was initially seen by [facility] on 07/26/2021, and clinical evaluation [...] accordingly. Nina Grigsby MD documented in this encounterSouthview Medical Center12-11-[address] [facility]12-05-[address] [facility]12-04-[address] [facility]11-24-2023 Instructions* Patient Instructions* Estella Fish APRN.RONAL - 06/13/2023 9:54 AM EST Estella Fish CNP Department of Palliative and Supportive Care Palliative Care - Specialty services in symptom management and support For questions or prescription refills, call: [phone] Friday - Friday 9AM-5PM LASHAY Evans, RN - Structural Draftsman Please call 3-5 days in advance for medication refills Evenings, Weekends, Holidays: [phone] (ask for palliative medicine on-call provider) For appointments, cancellations or reschedule, call: [phone] documented in this encounterSouthview Medical Center11-24-2023 History of Present illness Narrative* [...] has improved anxiety and sleep. Modified ESAS ([place] Symptom Assessment Scale) Information Provided By: Patient [...] Nose: Nose normal. No rhinorrhea. Mouth/Throat: Lips: Daphne. Mouth: Mucous membranes are moist. No oral [...] was identified. 06/13/2023 by Estella Fish NP, TOWER EXCAVATOR OPERATOR.FOUNTAIN CLERK Assessment & Plan (Z51.5) Palliative care by [...] 6-8 Weeks in person Estella Fish NP, TOWER EXCAVATOR OPERATOR.FOUNTAIN CLERK June 13, 2023 7:43 AM I spent a total of 35 minutes on the date of the service which included preparing to see the patient, [id number] patient care, completing clinical documentation, obtaining and/or reviewing separately obtained history, performing a medically appropriate examination, counseling and educating the pat ient/family/caregiver, ordering medications, tests, or procedures, communicating with other HCPs (not separately reported), and independently interpreting results (not separately reported). This note may have been partially generated using the Vi[employer] voice recognition system. While every effort was made to correct voice recognition errors, kindly be aware that some errors may occasionally occur. documented in this encounterSouthview Medical Center11-24-[address] [facility]11-21-2023 History of Present illness Narrative* Jyoti Limon MD - 06/10/2023 12:00 AM EST CRISTAL GU [id number] 06/10/2023 [facility] Radiation Oncology Department SIMULATION NOTE DATE OF SIMULATION: 06/10/2023 THERAPIST: Sapna Severino MACHINE: [email or web address] DIAGNOSIS: C10 Malignant neoplasm of oropharynx AREA: [...] / CDT 2:50 PM documented in this encounterSouthview Medical Center11-21-2023 History of Present illness Narrative* Jyoti Limon MD - 06/10/2023 12:00 AM EST RICCARDO CRISTAL [id number] 06/10/2023 [facility] Department of Radiation Oncology Treatment Planning [...] Limon M.D. 1:41 AM documented in this encounterSouthview Medical Center11-21-[address] [facility]11-21-[address] [facility]11-14-2023 Miscellaneous Notes * Telephone Encounter - Pavithra Jacinto MA - 06/03/2023 3:39 PM EST Opened for refill, refills not needed at this time. Pavithra Jacinto MA documented in this encounterSouthview Medical Center11-13-[address] [facility]11-13-2023 History of Present illness Narrative* Patricia Miller [...] (HCC) Peripheral arterial disease (HCC) 2019 R SEPARATIONS SCIENTIST stent PAST SURGICAL HISTORY: PAST SURGICAL HISTORY Procedure Laterality Date BACK SURGERY HX 2019 CABG (4) VEIN GRAFTS & ARTERIAL GRAFT(S) 2016 LOWER EXTREMITY GENOMICS SCIENTIST W/WO STENT Right 2019 right common femoral [...] involving face and upper back. PATHOLOGY: 10/21/2022 [id number] NGS analysis KRAS G12C mutation present, 5.2% [...] No hypermetabolic osseous lesions 01/03/2023 [place] [place] Bilateral hilar soft tissue nodules concerning for [...] prior study, as above. 04/12/2022 Bone scan ([facility]) Degenerative findings. No evidence of metastatic [...] right tonsillar mass. We will refer to [facility] for evaluation, most likely to [...] which included preparing to see the patient, [id number] patient care, completing clinical documentation, obtaining and/or reviewing separately obtained history, performing a medically appropriate examination, counseling and educating the pat ient/family/caregiver, ordering medications, tests, or procedures, independently interpreting results (not separately reported), and communicating results to the patient/family/caregiver. documented in this encounterSouthview Medical Center11-10-[address] [facility]11-10-2023 History of Present illness Narrative* Jyoti Limon MD - 05/30/2023 11:16 AM EST Radiation Oncology - Follow Up Note PATIENT NAME: Cristal Gu PATIENT DIAGNOSIS: Lung cancer, left upper lobe, pleomorphic carcinoma, stage IIb [id number], stage IIB AJCC 8th edition (chest wall [...] left upper lobe, pleomorphic carcinoma, stage IIb [id number], stage IIB AJCC 8th edition (chest wall [...] by: Jyoti Limon MD cc: Christina Azul [address] [place] [id number] documented in this encounterSouthview Medical Center11-07-[address] [facility]11-07-2023 History of Present illness Narrative* Damon Tse [...] ACTIVE PROBLEM LIST Coronary Artery Disease Involving [place] Coronary Artery of [place] Heart Without Angina Pectoris Centrilobular Emphysema (Hcc) [...] of SERVICE: 1:41 PM documented in this encounterSouthview Medical Center11-07-2023 Nurse Note* Radha Hunter CT - 05/27/2023 1:31 PM EST Tobacco Use: 2 packs/day, for 50 years. Types: Cigarettes Was smoking cessation packet given? Patient Declined Was a referral initiated?Patient declined. documented in this encounterSouthview Medical Center10-31-2023 Miscellaneous Notes* Telephone Encounter - Denita Rai RN - 05/20/2023 1:49 PM EDT Patient started/will start taking Sotorasib on 05/14/23. Denita Rai RN documented in this encounterSouthview Medical Center10-31-2023 Miscellaneous Notes* Telephone Encounter - [...] comply. Denita Rai RN documented in this encounterSouthview Medical Center10-31-2023 History of Present illness Narrative* [...] needed. Denita Rai RN documented in this encounterSouthview Medical Center10-31-[address] [facility]10-30-2023 Miscellaneous Notes* Telephone Encounter - Denita Rai [...] then? Denita Rai RN documented in this encounterSouthview Medical Center10-27-2023 Instructions* Patient Instructions* Estella Fish APRN.CNP - 05/16/2023 9:13 AM EDT Estella Fish CNP Department of Palliative and Supportive Care Palliative Care - Specialty services in symptom management and support For questions or prescription refills, call: [phone] Friday - Friday 9AM-5PM LASHAY Evans, RN - Structural Draftsman Please call 3-5 days in advance for medication refills Evenings, Weekends, Holidays: [phone] (ask for palliative medicine on-call provider) For appointments, cancellations or reschedule, call: [phone] documented in this encounterSouthview Medical Center10-27-2023 [facility]10-27-2023 History of Present illness Narrative* Estella [...] or sertraline, not sure why. Modified ESAS ([place] Symptom Assessment Scale) Information Provided By: Patient [...] ear normal. Nose: Nose normal. Mouth/Throat: Lips: Daphne. Mouth: Mucous membranes are moist. No oral [...] suspiciousactivity was identified. 05/16/2023 by Estella Fish DIRECTOR STAFFING, TOWER EXCAVATOR OPERATOR.FOUNTAIN CLERK Urine Screen Lab Results Component Value Date UAMPH Negative 09/26/2021 UBARB2 Negative 09/26/2021 UBENZ Negative 09/26/2021 UCOC2 Negative 09/26/2021 UOPI Negative 09/26/2021 UOXYC Negative 09/26/2021 UPCP Negative 09/26/2021 UTHC Negative 09/26/2021 UETOH <11 09/26/2021 Assessment & Plan (Z51.5) Palliative care by specialist (primary encounter diagnosis) - Reviewed philosophy of palliative medicine - Discussed services offered by [facility] - Provided support -Discussed services offered by palliative medicine and how to contact us (E11.40) Primary malignant neoplasm of left lung metastatic [...] which included preparing to see the patient, [id number]-[id number]-elru patient care, completing clinical documentation, obtaining and/or [...] may have been partially generated using the [employer] voice recognition system. While every effort was made to correct voice recognition errors, kindly be aware that some errors may occasionally occur. documented in this encounterSouthview Medical Center10-26-2023 Miscellaneous Notes* Telephone Encounter - [...] L.... Denita Rai RN documented in this encounterSouthview Medical Center10-26-2023 Miscellaneous Notes* Telephone Encounter - [...] 75 mcg. Jeannie, Pauline documented in this encounterSouthview Medical Center10-24-2023 Miscellaneous Notes* Telephone Encounter - Denita Rai RN - 05/13/2023 3:[address] Grigsby, treatment plan will be changing to Lumakras. Script sent to [facility] pharmacy. Denita Rai RN * Telephone Encounter - Analisa Stacy RPh - 05/13/2023 12:05 PM EDT Added future plan of pembrolizumab, carboplatin, and paclitaxel for after today's dose of pembrolizumab. (Was not certain if you were going to go ahead with today's dose or not.) Jose Stacy, PharmD, BCOP Whitney: MARIA L Stacy, PharmD, BCOP documented in this encounterSouthview Medical Center10-24-[address] [facility]10-23-[address] [facility]10-23-[address] [facility]10-19-2023 Miscellaneous Notes* Telephone Encounter - Denita Rai [...] for 4 days. Authorizing Provider: PATRICIA MILLER APRN.FOUNTAIN CLERK * Telephone Encounter - Denita Rai RN [...] agree. Denita Rai RN documented in this encounterSouthview [facility] Center10-16-2023 Miscellaneous Notes* Telephone Encounter - Analisa Stacy RPh - 05/05/2023 3:58 PM EDT Next appt and labs 05/13/23. Jose Stacy, MoeD, BCOP documented in this encounterSouthview Medical Center10-04-2023 Miscellaneous Notes* Telephone Encounter - [...] pended. Denita Rai RN documented in this encounterSouthview Medical Center10-03-[address] [facility] Miscellaneous Notes* Telephone Encounter - Denita Rai [...] objections? Denita Rai RN documented in this encounterSouthview Medical Center09-12-[address] [facility]23 History of Present illness Narrative* Ania Peters RN - 04/01/2023 1:36 PM EDT Potassium 3.3 reviewed with Raimundo Miller CNP. She would like pt to get K 20 meq IV x1 dose today andwill send a script for oral K to his pharmacy. Pt and tx nurse informed. Ania Peters RN documented in this encounterSouthview Medical Center09-12-[address] [facility]-2023 Nurse Note* Yani Singer - 04/01/2023 12:51 PM EDT Patient states he has been coughing up a lot of stuff. Coughing up more blood then usual. documented in this encounterSouthview Medical Center09-12-[address] [facility]-2023 History of Present illness Narrative* Patricia Miller [...] (HCC) Peripheral arterial disease (HCC) 2019 R SEPARATIONS SCIENTIST stent PAST SURGICAL HISTORY: PAST SURGICAL HISTORY Procedure Laterality Date BACK SURGERY HX 2019 CABG (4) VEIN GRAFTS & ARTERIAL GRAFT(S) 2016 LOWER EXTREMITY GENOMICS SCIENTIST W/WO STENT Right 2019 right common femoral [...] involving face and upper back. PATHOLOGY: 10/21/2022 [id number] NGS analysis KRAS G12C mutation present, 5.2% [...] No hypermetabolic osseous lesions 01/03/2023 [place] [place] Bilateral hilar soft tissue nodules concerning for [...] prior study, as above. 04/12/2022 Bone scan ([facility]) Degenerative findings. No evidence of metastatic [...] neck CT. [facility], and clinical evaluation most consistent with inflammatory/post-infectious findings. No suspicion for malignancy. The patient apparently chews tobacco, and was advised to discontinue.He will follow- up with ENT as indicated. 6. Cancer related pain Severe pain left upper chest wall since August 2022. Currently on Percocet and gabapentin with moderate relief. Will consider referral to [facility] palliative medicine if symptoms persist. 7. [...] which included preparing to see the patient, [id number] patient care, completing clinical documentation, obtaining and/or reviewing separately obtained history, performing a medically appropriate examination, counseling and educating the pat ient/family/caregiver, ordering medications, tests, or procedures, independently interpreting results (not separately reported), and communicating results to the patient/family/caregiver. documented in this encounterSouthview Medical Center08-22-2023 History of Present illness Narrative* [...] (HCC) Peripheral arterial disease (HCC) 2019 R SEPARATIONS SCIENTIST stent PAST SURGICAL HISTORY: PAST SURGICAL HISTORY Procedure Laterality Date BACK SURGERY HX 2019 CABG (4) VEIN GRAFTS & ARTERIAL GRAFT(S) 2016 LOWER EXTREMITY GENOMICS SCIENTIST W/WO STENT Right 2019 right common femoral [...] involving face and upper back. PATHOLOGY: 10/21/2022 [id number] NGS analysis KRAS G12C mutation present, 5.2% [...] No hypermetabolic osseous lesions 01/03/2023 [place] [place] Bilateral hilar soft tissue nodules concerning for [...] prior study, as above. 04/12/2022 Bone scan ([facility]) Degenerative findings. No evidence of metastatic [...] with moderate relief. Will consider referral to [facility] palliative medicine if symptoms persist. 7. [...] worsen. Nina Grigsby MD documented in this encounterSouthview Medical Center08-21-2023 Miscellaneous Notes* Telephone Encounter - Analisa Stacy RPh - 03/10/2023 11:05 AM EDT Instructed by pt to change pharmacy to [place], [place]. Jose Stacy, PharmD, BCOP * Telephone [...] authorize? Denita Rai RN documented in this encounterSouthview Medical Center08-16-2023 Miscellaneous Notes* Telephone Encounter - [...] suggestions? Denita Rai RN documented in this encounterSouthview Medical Center08-01-2023 Nurse Note* Pavithra Heart MA - 02/18/2023 2:39 PM EDT Patient hurt his back so he is having pain from that today. Pavithra Acuna MA documented in this encounterSouthview Medical Center08-01-2023 History of Present illness Narrative* [...] (HCC) Peripheral arterial disease (HCC) 2019 R SEPARATIONS SCIENTIST stent PAST SURGICAL HISTORY: PAST SURGICAL HISTORY Procedure Laterality Date BACK SURGERY HX 2019 CABG (4) VEIN GRAFTS & ARTERIAL GRAFT(S) 2016 LOWER EXTREMITY GENOMICS SCIENTIST W/WO STENT Right 2019 right common femoral [...] involving face and upper back. PATHOLOGY: 10/21/2022 [id number] NGS analysis KRAS G12C mutation present, 5.2% [...] No hypermetabolic osseous lesions 01/03/2023 [place] [place] Bilateral hilar soft tissue nodules concerning for [...] prior study, as above. 04/12/2022 Bone scan ([facility]) Degenerative findings. No evidence of metastatic [...] neck CT. [facility], and clinical evaluation most consistent with inflammatory/post-infectious findings. No suspicion for malignancy. The patient apparently chews tobacco, and was advised to discontinue.He will follow- up with ENT as indicated. 6. Cancer related pain Severe pain left upper chest wall since August 2022. Currently on Percocet and gabapentin with moderate relief. Will consider referral to [facility] palliative medicine if symptoms persist. 7. [...] care. Nina Grigsby MD documented in this encounterSouthview Medical Center07-31-2023 Miscellaneous Notes* Telephone Encounter - Yani Signer - 02/17/2023 2:14 PM EDT Patient has an OTV appointment on 02/18. Please place lab orders. Yani Singer documented in this encounterSouthview Medical Center07-20-2023 Miscellaneous Notes* Telephone Encounter - Vanessa Carl - 02/06/2023 2:11 PM EDT ER records scanned. * Telephone Encounter - Denita Rai RN - 02/06/2023 1:20 PM EDT FYI: Pt reports that he [place] [facility] [place] w/ a right ear ache. Diagnosed w/ an ear infection. Sent home on Amoxicillin 500 mg BID x 10 days and Ciprodex gtts BID x 7 days. Tomasa: Please scan pt's [place] records [place] [facility] [place] Thanks! Denita Rai RN documented in this encounterSouthview Medical Center07-11-2023 History of Present illness Narrative* Jyoti Limon MD - 01/28/2023 3:15 PM EDT Radiation Oncology - Follow Up Note PATIENT NAME: Cristal Gu PATIENT DIAGNOSIS: Lung cancer, left upper lobe, pleomorphic carcinoma, stage IIb [id number], stage IIB AJCC 8th edition (chest wall [...] left upper lobe, pleomorphic carcinoma, stage IIb [id number], stage IIB AJCC 8th edition (chest wall invasion), PD-L1 95%, KRAS G12C mutation present Doing fairly well, and has had a good response to recent left supraventricular chest wall radiation. He continues active follow-up with Dr. Grigsby. We will plan to see patient back on an as-needed basis. Signed by: Jyoti Limon MD cc: Christina Azul [address] [place] [phone] documented in this encounterSouthview Medical Center06-26-2023 Miscellaneous Notes* Telephone Encounter - [...] advise. Denita Rai RN documented in this encounterSouthview Medical Center06-26-2023 Miscellaneous Notes* Telephone Encounter - [...] 01/17/23. Rosibel Wheeler LPN documented in this encounterSouthview Medical Center06-22-2023 Miscellaneous Notes* Telephone Encounter - Vanessa Fam [facility] - 01/09/2023 4:03 PM EDT Records faxed to [facility] in [place] [phone]. documented in this encounterSouthview Medical Center06-21-2023 Miscellaneous Notes* Telephone Encounter - MARGARET Finnegan - 01/08/2023 2:49 PM EDT Social Work Problem Referral Note INFORMATION/REFERRAL : Cristal Gu 67 year old male was referred by Leonel Zhu to [facility] Social Work for the following reason(s): Alcohol [...] tab: Yes ELIZABETH Finnegan-Marguerite documented in this encounterSouthview Medical Center06-20-2023 History of Present illness Narrative* [...] Written resources provided to patient. Contacted nurse flooring sales manager and SW regarding patient's current [...] Dosing Weight: 57.4 kg Estimated kilocalorie needs: 9094-6214 kilocalories determined by 30-35 kcal/kg Estimated protein needs: 57-86 grams determined by 1.0-1.5 g/kg Dosing weight Estimated fluid needs: ~0199-4960 milliliters based on 1 mL per kcal [...] iv infusion 500-999 mL/hr INTRAVENOUS PRN Nina Grigsby MD diphenhydrAMINE 50 mg injection (BENADRYL) [...] Murphy MS, RDN, LD documented in this encounterSouthview Medical Center06-20-2023 History of Present illness Narrative* Aurelia Bradley RN - 01/07/2023 11:17 AM EDT LFT's reviewed with ok to proceed with tx as written. Aurelia Bradley RN documented in this encounterSouthview Medical Center06-20-2023 Miscellaneous Notes* Telephone Encounter - Lisa Figueroa - 01/07/2023 10:20 AM EDT Disregard. Patient just showed and currently in office now. Lisa Figueroa * Telephone Encounter - Lisa Figueroa - 01/07/2023 10:08 AM EDT Patient did not show for RV and treatment this morning. Lisa Figueroa documented in this encounterSouthview Medical Center06-19-2023 Miscellaneous Notes* Telephone Encounter - Yani Singer - 01/06/2023 11:43 AM EDT Patient has an OTV appointment on 01/06. Please place lab orders. Yani Singer documented in this encounterSouthview Medical Center06-16-2023 Miscellaneous Notes* Telephone Encounter - Denita Rai RN - 01/03/2023 4:20 PM EDT Disposition: per Yusef, patient directed to: Emergency Room due to the issue being urgent. Pt confirms that he will be going [place] [facility] [place]. Report phoned to [facility] [place]. Pt's last office note, copy of [...] concerns? Denita Rai RN documented in this encounterSouthview Medical Center06-06-2023 Miscellaneous Notes* Telephone Encounter - Denita Rai RN - 12/24/2022 3:44 PM EDT Rosemarie from [facility] states that they received pt's MMW script, however, they are currently out of viscous lidocaine. Script will be filled at our pharmacy. Pt notified and verbalizes understanding. [facility] instructed to cancel the script. Denita Rai RN documented in this encounterSouthview Medical Center06-06-2023 Miscellaneous Notes* Telephone Encounter - Denita Rai RN - 12/24/2022 3:07 PM EDT MMW script fax[facility] to [facility] @ [phone]. Denita Rai RN * Telephone Encounter - [...] Swish and Swallow Authorizing Provider: PATRICIA MILLER APRN.FOUNTAIN CLERK * Telephone Encounter - Denita Rai RN [...] pt? Denita Rai RN documented in this encounterSouthview Medical Center05-30-2023 History of Present illness Narrative* [...] understanding. Aurelia Bradley RN documented in this encounterSouthview Medical Center05-30-2023 History of Present illness Narrative* [...] (HCC) Peripheral arterial disease (HCC) 2019 R SEPARATIONS SCIENTIST stent PAST SURGICAL HISTORY: PAST SURGICAL HISTORY Procedure Laterality Date BACK SURGERY HX 2019 CABG (4) VEIN GRAFTS & ARTERIAL GRAFT(S) 2016 LOWER EXTREMITY GENOMICS SCIENTIST W/WO STENT Right 2019 right common femoral [...] involving face and upper back. PATHOLOGY: 10/21/2022 [id number] NGS analysis KRAS G12C mutation present, 5.2% [...] prior study, as above. 04/12/2022 Bone scan ([facility]) Degenerative findings. No evidence of metastatic [...] with moderate relief. Will consider referral to [facility] palliative medicine if symptoms persist. 7. [...] cancer. Nina Grigsby MD documented in this encounterSouthview Medical Center05-08-2023 Nurse Note* Ebony Marcelo Ma - 11/25/2022 10:09 AM EDT Clinical questionnaires incomplete due to not loading. Ebony Marcelo Ma documented in this encounterSouthview Medical Center05-08-2023 History of Present illness Narrative* [...] (HCC) Peripheral arterial disease (HCC) 2019 R SEPARATIONS SCIENTIST stent PAST SURGICAL HISTORY: PAST SURGICAL HISTORY Procedure Laterality Date BACK SURGERY HX 2019 CABG (4) VEIN GRAFTS & ARTERIAL GRAFT(S) 2016 LOWER EXTREMITY GENOMICS SCIENTIST W/WO STENT Right 2019 right common femoral [...] involving face and upper back. PATHOLOGY: 10/21/2022 [id number] NGS analysis KRAS G12C mutation present, 5.2% [...] prior study, as above. 04/12/2022 Bone scan ([facility]) Degenerative findings. No evidence of metastatic [...] with moderate relief. Will consider referral to [facility] palliative medicine if symptoms persist. 7. [...] which included preparing to see the patient, [id number] patient care, completing clinical documentation, obtaining and/or reviewing separately obtained history, performing a medically appropriate examination, counseling and educating the pat ient/family/caregiver, ordering medications, tests, or procedures, independently interpreting results (not separately reported), and communicating results to the patient/family/caregiver. documented in this encounterSouthview Medical Center05-04-2023 Miscellaneous Notes* Telephone Encounter - Eobny Marcelo Ma - 11/21/2022 11:[address] lab orders for appointment on 11/25/22. Ebony Marcelo Ma documented in this encounterSouthview Medical Center05-03-2023 Miscellaneous Notes* Telephone Encounter - [...] ensure a day and has met with typewriter operator automatic before. We discussed the possibility of adding an antidepressant. Pt is concerned about his LFTs and he does not want to take anything that could effect those. Is there something you can prescribe that may increase appetite & help depression while not altering his liver function? Pt uses [facility] in [place] if you want to send something. I will also copy typewriter operator automatic and social work to be aware of changes/issues with patient. Merissa Fam RN documented in this encounterSouthview Medical Center05-03-2023 History of Present illness Narrative* G Erasto Limon MD - 11/20/2022 10:29 AM EDT Radiation Oncology - Follow Up Note PATIENT NAME: Cristal Gu PATIENT DIAGNOSIS: Lung cancer, left upper lobe, pleomorphic carcinoma, stage IIb [id number], stage IIB AJCC 8th edition (chest wall [...] left upper lobe, pleomorphic carcinoma, stage IIb [id number], stage IIB AJCC 8th edition (chest wall invasion), PD-L1 95%, KRAS G12C mutation present Doing fairly well, with good intial response to palliative radiation. He continues pembrolizumab tory Grigsby. Plan to see back in 4-6 weeks. Signed by: Jyoti Limon MD cc: Christina Azul [address] [id number] documented in this encounterSouthview Medical Center05-01-2023 History of Present illness Narrative* [...] (HCC) Peripheral arterial disease (HCC) 2019 R SEPARATIONS SCIENTIST stent PAST SURGICAL HISTORY: PAST SURGICAL HISTORY Procedure Laterality Date BACK SURGERY HX 2019 CABG (4) VEIN GRAFTS & ARTERIAL GRAFT(S) 2016 LOWER EXTREMITY GENOMICS SCIENTIST W/WO STENT Right 2019 right common femoral [...] involving face and upper back. PATHOLOGY: 10/21/2022 [id number] NGS analysis KRAS G12C mutation present, 5.2% [...] prior study, as above. 04/12/2022 Bone scan ([facility]) Degenerative findings. No evidence of metastatic [...] neck CT. [facility], and clinical evaluation most consistent with inflammatory/post-infectious findings. No suspicion for malignancy. The patient apparently chews tobacco, and was advised to discontinue.He will follow- up with ENT as indicated. 6. Cancer related pain Severe pain left upper chest wall since August 2022. Currently on Percocet and gabapentin with moderate relief. Will consider referral to [facility] palliative medicine if symptoms persist. 7. Abnormal LFTs Labs from 11/11/2022 revealed significant elevation of the SGOT and SGPT, most likely transaminitis secondary to immunotherapy versus supplements (fenbendazole and curcumin). The patient was advised to discontinue all supplements, and avoid other agents which might contribute to liver dysfunction. Repeat labs and return visit in 1 week. Nina Grigsby MD documented in this encounterSouthview Medical Center04-27-2023 Miscellaneous Notes* Telephone Encounter - Yani Singer - 11/14/2022 9:16 AM EDT Patient has an OTV appointment on 11/18. Please place lab orders. Yani Singer documented in this encounterSouthview Medical Center04-25-2023 History of Present illness Narrative* G Erasto Limon MD - 11/12/2022 12:00 AM EDT [facility] Radiation Oncology Department RADIATION ONCOLOGY - COMPLETION NOTE PATIENT: CRISTAL GUDOB: 1955 DATES OF TREATMENT: 10/28/2022- 11/12/2022 DIAGNOSIS: Lung cancer, left upper lobe, pleomorphic carcinoma, stage IIb [id number], stage IIB AJCC 8th edition (chest wall [...] / WST 0:33 AM documented in this encounterSouthview Medical Center04-24-2023 History of Present illness Narrative* [...] time. Rita Hurst RN documented in this encounterSouthview Medical Center04-24-2023 Miscellaneous Notes* Telephone Encounter - Merissa Rodríguez (Hand Screen Printer) - 11/11/2022 3:10 PM EDT Ambulatory Pharmacy Prior Authorization Note Provider Intervention Required?: No- Pharmacy completed on your behalf. Rx Plan: Drug: Oxycodone-Acetaminophen 5/325 Cover My Meds Diamond: [id number] Determination: Approved Prior Authorization/Case #: [id number] Prior Authorization Expiration: 07/10/2023 Time to PA Submission in CMM: 15 min Time to PA Determination in CMM: Same day Additional Information: For questions relating to this submission, please contact [facility] at [phone] documented in this encounterSouthview Medical Center04-24-2023 Miscellaneous Notes* Telephone Encounter - Merissa Fam RN - 11/11/2022 12:51 PM EDT Please sign if agreeable. Merissa Fam RN documented in this encounterSouthview Medical Center04-24-2023 History of Present illness Narrative* [...] (HCC) Peripheral arterial disease (HCC) 2019 R SEPARATIONS SCIENTIST stent PAST SURGICAL HISTORY: PAST SURGICAL HISTORY Procedure Laterality Date BACK SURGERY HX 2019 CABG (4) VEIN GRAFTS & ARTERIAL GRAFT(S) 2016 LOWER EXTREMITY GENOMICS SCIENTIST W/WO STENT Right 2019 right common femoral [...] involving face and upper back. PATHOLOGY: 10/21/2022 [id number] NGS analysis KRAS G12C mutation present, 5.2% [...] prior study, as above. 04/12/2022 Bone scan ([facility]) Degenerative findings. No evidence of metastatic [...] with moderate relief. Will consider referral to [facility] palliative medicine if symptoms persist. 7. Abnormal LFTs Labs from today reveal significant elevation of the SGOT and SGPT, most likely transaminitis secondary to immunotherapy. We will hold treatment today and repeat labs in 1 week on return. A long course of steroids will be considered if LFTs remain abnormal. Nina Grigsby MD documented in this encounterSouthview Medical Center04-17-2023 History of Present illness Narrative* G Erasto Limon MD - 11/04/2022 12:12 PM EDT Radiation Oncology - On Treatment Review (OTR) Note PATIENT NAME: Cristal Gu PATIENT DIAGNOSIS: Lung cancer, left upper lobe, pleomorphic carcinoma, stage IIb [id number], stage IIB AJCC 8th edition (chest wall [...] outlined. Jyoti Limon MD documented in this encounterSouthview Medical Center04-15-2023 Miscellaneous Notes* Telephone Encounter - Jayson Allred MD - 11/02/2022 9:24 AM EDT Called with increasing cough and occasional blood tinged sputum. Deenies any other symptoms. Levaquin sent Instructed to see Dr. Grigsby next week documented in this encounterSouthview Medical Center04-13-2023 History of Present illness Narrative* [...] (HCC) Peripheral arterial disease (HCC) 2019 R SEPARATIONS SCIENTIST stent PAST SURGICAL HISTORY: PAST SURGICAL HISTORY Procedure Laterality Date BACK SURGERY HX 2019 CABG (4) VEIN GRAFTS & ARTERIAL GRAFT(S) 2016 LOWER EXTREMITY GENOMICS SCIENTIST W/WO STENT Right 2019 right common femoral [...] involving face and upper back. PATHOLOGY: 10/21/2022 [id number] NGS analysis KRAS G12C mutation present, 5.2% [...] prior study, as above. 04/12/2022 Bone scan ([facility]) Degenerative findings. No evidence of metastatic [...] persist. Nina Grigsby MD documented in this encounterSouthview Medical Center04-12-2023 History of Present illness Narrative* [...] states he was reading online and watching [employer] vidoes and felt confused. Discussed with pt [...] Gray MS, RDN, LD documented in this encounterSouthview Medical Center04-06-2023 History of Present illness Narrative* G Erasto Limon MD - 10/24/2022 5:19 PM EDT Radiation Oncology - Follow Up/new problem note PATIENT NAME: Cristal Gu PATIENT DIAGNOSIS: Lung cancer, left upper lobe, pleomorphic carcinoma, stage IIb [id number], stage IIB AJCC 8th edition (chest wall [...] left upper lobe, pleomorphic carcinoma, stage IIb [id number], stage IIB AJCC 8th edition (chest wall [...] Jyoti Limon MD cc: Christina Azul [facility] [place] [address] No referring provider defined for this encounter. documented in this encounterSouthview Medical Center04-06-2023 Miscellaneous Notes* Telephone Encounter - [...] Reminded pt of his appointment w/ the typewriter operator automatic this coming Friday, 10/28. Pt verbalizes understanding. [...] protocol. Denita Rai RN documented in this encounterSouthview Medical Center04-05-2023 Miscellaneous Notes* Telephone Encounter - Rolanda Lawrence - 10/23/2022 8:11 AM EDT Patient has appt already scheduled with JEROME on 10/28. Patient is scheduled to see Program Manager @ 10:00 after his JEROME on 10/28. [...] Pt voiced interest in meeting w/ the typewriter operator automatic. Order pended. Denita Rai RN documented in this encounterSouthview Medical Center04-03-2023 Nurse Note* Yani Singer - 10/21/2022 1:37 PM EDT Clinical questionnaires incomplete due to Nurse was Interrupted by provider during rooming process documented in this encounterSouthview Medical Center04-03-2023 History of Present illness Narrative* [...] (HCC) Peripheral arterial disease (HCC) 2019 R SEPARATIONS SCIENTIST stent PAST SURGICAL HISTORY: PAST SURGICAL HISTORY Procedure Laterality Date BACK SURGERY HX 2019 CABG (4) VEIN GRAFTS & ARTERIAL GRAFT(S) 2016 LOWER EXTREMITY GENOMICS SCIENTIST W/WO STENT Right 2019 right common femoral [...] prior study, as above. 04/12/2022 Bone scan ([facility]) Degenerative findings. No evidence of metastatic [...] 2015. Status post CABG x 4 in [place] 2015. Currently stable. Continue management per PCP/cardiology. [...] persist. Nina Grigsby MD documented in this encounterSouthview Medical Center04-03-2023 History of Present illness Narrative* G Erasto Limon MD - 10/21/2022 12:00 AM EDT CRISTAL GU [id number] 10/21/2022 [facility] Radiation Oncology Department SIMULATION NOTE DATE OF SIMULATION: 10/21/2022 THERAPIST: Elizabeth Severino MACHINE: [email or web address] DIAGNOSIS: Malignant neoplasm of upper lobe, left [...] / GABRIELLE 34:40 PM documented in this encounterSouthview Medical Center04-03-2023 History of Present illness Narrative* Jyoti Limon MD - 10/21/2022 12:00 AM EDT CRISTAL GU [id number] 10/21/2022 [facility] Department of Radiation Oncology Treatment Planning Note For reasons stated in the consult note, Cristal uG is a candidate for radiation therapy. Based [...] Limon M.D. :29 PM documented in this encounterSouthview Medical Center03-31-2023 Miscellaneous Notes* Telephone Encounter - Yani Singer - 10/18/2022 3:50 PM EDT Patient has an OTV appointment on 10/21. Please place lab orders. Yanihaider Singer documented in this encounterSouthview Medical Center03-31-2023 Miscellaneous Notes* Telephone Encounter - [...] Please obtain ER reports. Thanks, Patricia Miller APRN.FOUNTAIN CLERK * Telephone Encounter - Denita Rai RN - 10/17/2022 2:54 PM EDT Pt c/o intolerable pain in his left chest, shoulder and arm. Rates his pain 9- 10/10. Describes as aconstant aching pain. Was seen recently in the ER and prescribed a medrol dose pack. Pt notes the medrol tore up his stomach. Has old scripts of Oxycodone and [place] at home. Took one dose of each w/ very little relief. What do you advise for his pain? Denita Rai RN documented in this encounterSouthview Medical Center03-28-2023 Miscellaneous Notes* Telephone Encounter - Denita Rai RN - 10/15/2022 2:34 PM EDT Clerical: Can you assist w/ this? Denita Rai RN * Telephone Encounter - Nina Grigsby MD - 10/15/2022 2:22 PM EDT I [...] 10:00 AM EDT RADIOLOGY CALL CENTER INTAKE HOME SUPPORT WORKER: BIBI EXT: [id number] DATE: 10/15/2022 TIME: 10:01AM TRACKING #. [id number] REQUESTING PERSON: [place] PHONE/PAGER: [phone] REQUESTING STAFF: Jaydon Grigsby MD PHONE/PAGER: [phone] SPECIFICS OF THE REQUEST: (Please be as detailed as possible. If request is lymph node biopsy, specify LOCATION of the node if possible): IMAGING GUIDED BIOPSY LUNG ] SPECIAL REQUESTS: TISSUE SAMPLE, LABWORK: Routine Evaluation -Fine needle aspiration (FNA), core biopsy, no preference, unsure, specific processing request for pathology (For example: send for ER, [place], HER2/sarah or possible lymphoma send in RPMI [...] TO EVALUATE APPROPRIATENESS/FEASIBILITY OF THE REQUEST) IMAGING: [facility] (If the imaging was obtained outside the [facility] system, then it needs to be submitted for review prior to approval.) Note to all persons requesting biopsies: All biopsy requests will be scheduled as quickly as possible, based on the clinical urgency, availability of appointment times, the need to hold anti-thrombolytic therapy (aspirin, blood thinners) and the patient s schedule, including the need for an available sales warehouse driver. If a percutaneous biopsy or drainage is not felt to be safe or an alternative method for establishing a diagnosis is possible, this will be discussed directly with the requesting physician. documented in this encounterSouthview Medical Center03-28-2023 History of Present illness Narrative* [...] his left shoulder. He was seen at [facility] ER on 10/09/2022 and given a [...] (HCC) Peripheral arterial disease (HCC) 2019 R SEPARATIONS SCIENTIST stent PAST SURGICAL HISTORY: PAST SURGICAL HISTORY Procedure Laterality Date BACK SURGERY HX 2019 CABG (4) VEIN GRAFTS & ARTERIAL GRAFT(S) 2016 LOWER EXTREMITY GENOMICS SCIENTIST W/WO STENT Right 2019 right common femoral [...] prior study, as above. 04/12/2022 Bone scan ([facility]) Degenerative findings. No evidence of metastatic [...] at length. We elected to refer to [facility] interventional radiology to evaluate for biopsy [...] 2015. Status post CABG x 4 in [place] 2015. Currently stable. Continue management per PCP/cardiology. [...] indicated. Nina Grigsby MD documented in this encounterSouthview Medical Center03-27-2023 [facility] History of Present illness Narrative* Nina [...] leg. He is due to see his electroslag welding machine operator to evaluate for possible left [...] (HCC) Peripheral arterial disease (HCC) 2019 R SEPARATIONS SCIENTIST stent PAST SURGICAL HISTORY: PAST SURGICAL HISTORY Procedure Laterality Date BACK SURGERY HX 2019 CABG (4) VEIN GRAFTS & ARTERIAL GRAFT(S) 2016 LOWER EXTREMITY GENOMICS SCIENTIST W/WO STENT Right 2019 right common femoral [...] prior study, as above. 04/12/2022 Bone scan ([facility]) Degenerative findings. No evidence of metastatic [...] indicated. Nina Grigsby MD documented in this encounterSouthview Medical Center03-01-2023 NoteUT Cardiology - [facility] Haider Riccardo Barber. is a 67 y.o. year old male patient being seen for Coronary Artery Disease, Peripheral Vascular Disease, Carotid Stenosis, and Hypertension Patient Active Problem List Diagnosis Coronary artery disease involving coronary bypass graft of [place] heart without angina pectoris PVD (peripheral vascular disease) ([facility]/HCC) Primary hypertension Stenosis of carotid artery No [...] and cilostazol. Carotid ultrasound done at the [facility] 10/30/2020: Report mentions significant area reduction [...] and Lung CA He underwent VATS at [facility] for a lung mass last year [...] RN * Telephone Encounter - Patricia Miller APRN.FOUNTAIN CLERK - 09/11/2022 2:41 PM EST The following approved medication requests have been transmitted electronically. Requested Prescriptions Signed Prescriptions Disp Refills levoFLOXacin (LEVAQUIN) 750 mg tablet 7 tablet 0 Sig: Take 1 tablet by mouth once daily for 7 days. Authorizing Provider: PATRICIA MILLER APRN.FOUNTAIN CLERK * Telephone Encounter - Denita Rai RN [...] well. Denies fevers. Has been taking Guerita Wagoner cold as well as Advil for his symptoms. Pt due to have CT scans 10/08/22. What do you advise? Denita Rai RN documented in this encounterSouthview Medical Center01-31-2023 History of Present illness Narrative* [...] (HCC) Peripheral arterial disease (HCC) 2019 R SEPARATIONS SCIENTIST stent PAST SURGICAL HISTORY: PAST SURGICAL HISTORY Procedure Laterality Date BACK SURGERY HX 2019 CABG (4) VEIN GRAFTS & ARTERIAL GRAFT(S) 2016 LOWER EXTREMITY GENOMICS SCIENTIST W/WO STENT Right 2019 right common femoral [...] prior study, as above. 04/12/2022 Bone scan ([facility]) Degenerative findings. No evidence of metastatic [...] indicated. Nina Grigsby MD documented in this encounterSouthview Medical Center12-06-2022 History of Present illness Narrative* G Erasto Limon MD - 06/25/2022 10:43 AM EST Radiation Oncology - Follow Up Note PATIENT NAME: Cristal Gu PATIENT DIAGNOSIS: Lung cancer, left upper lobe, pleomorphic carcinoma, stage IIb [id number], stage IIB AJCC 8th edition (chest wall [...] left upper lobe, pleomorphic carcinoma, stage IIb [id number], stage IIB AJCC 8th edition (chest wall [...] MD cc: Christina Azul [address] [place] [phone] No referring provider defined for this encounter. documented in this encounterSouthview Medical Center12-06-2022 History of Present illness Narrative* Patricia Miller APRN.FOUNTAIN CLERK - 06/25/2022 10:09 AM EST PATIENT NAME: [...] some episodes when he could not get cracking and fanning machine operator the mornings. He was not COVID tested. [...] (HCC) Peripheral arterial disease (HCC) 2019 R SEPARATIONS SCIENTIST stent PAST SURGICAL HISTORY: PAST SURGICAL HISTORY Procedure Laterality Date BACK SURGERY HX 2019 CABG (4) VEIN GRAFTS & ARTERIAL GRAFT(S) 2016 LOWER EXTREMITY GENOMICS SCIENTIST W/WO STENT Right 2019 right common femoral [...] prior study, as above. 04/12/2022 Bone scan ([facility]) Degenerative findings. No evidence of metastatic [...] which included preparing to see the patient, hvji-qz-yglg patient care, completing clinical documentation, obtaining and/or reviewing separately obtained history, performing a medically appropriate examination, counseling and educating the pat ient/family/caregiver, ordering medications, tests, or procedures, independently interpreting results (not separately reported), and communicating results to the patient/family/caregiver. I spent a total of 30 minutes on the date of the service which included preparing to see the patient, javw-rm-pzmy patient care, completing clinical documentation, obtaining and/or reviewing separately obtained history, performing a medically appropriate examination, counseling and educating the pat ient/family/caregiver, ordering medications, tests, or procedures, independently interpreting results (not separately reported), and communicating results to the patient/family/caregiver. documented in this encounterSouthview Medical Center11-22-2022 History of Present illness Narrative* G Erasto Limon MD - 06/11/2022 1:28 PM EST Radiation Oncology - Follow Up Note PATIENT NAME: Cristal Gu PATIENT DIAGNOSIS: Lung cancer, left upper lobe, pleomorphic carcinoma, stage IIb [id number], stage IIB AJCC 8th edition (chest wall [...] left upper lobe, pleomorphic carcinoma, stage IIb [id number], stage IIB AJCC 8th edition (chest wall [...] by: Jyoti Limon MD cc: Christina Azul [address] [place] [id number] No referring provider defined for this encounter. documented in this encounterSouthview Medical Center11-18-2022 Miscellaneous Notes* Telephone Encounter - [...] 1:45. Rosibel Wheeler LPN documented in this encounterSouthview Medical Center11-17-2022 Miscellaneous Notes* Telephone Encounter - Yanira Infante - 06/06/2022 9:13 AM EST Called patient to follow up on missed appointment with Radha Palmer PA-C on 05/16. Unable to reach patient or leave a message at the number provided - mailbox is full. documented in this [facility]10-24-2022 Miscellaneous Notes* Telephone Encounter - Yanira [...] needs at this time. documented in this [facility]10-12-2022 NotePROCEDURE: XR HIP RT 2 3V WO PELVIS HISTORY: Hip pain COMPARISON: None. FINDINGS: BONES:No fracture, acute abnormality, or significant arthropathy. SOFT TISSUES:No visible soft tissue swelling. EFFUSION:None visible. OTHER: Atherosclerotic coronary artery disease. Endovascular stent within iliac artery. IMPRESSION: 1. No acute bone abnormality or significant degenerative joint disease of the right hip. Electronically authenticated by: TRUDY GUTIERREZ Date: 2022-05-01 17:28[facility]10[facility] History of Present illness Narrative* Jyoti Limon MD - 05/01/2022 12:00 AM EDT [facility] Radiation Oncology Department RADIATION ONCOLOGY - COMPLETION NOTE PATIENT: CRISTAL GUDOB: 1955 DATES OF TREATMENT: 03/26/2022- 05/01/2022 DIAGNOSIS: Lung cancer, left upper lobe, pleomorphic carcinoma, stage IIb [id number], stage IIB AJCC 8th edition (chest wall [...] / WST 24:03 PM documented in this encounterSouthview Medical Center10-10-2022 Miscellaneous Notes* Telephone Encounter - Domonique Estrada RN - 04/29/2022 3:10 PM EDT Provided code for pharmacy, patient's medication ran through. * Telephone Encounter - TIFFANY Navarro - 04/29/2022 2:51 PM EDT [facility] [place] called stating they need a dx code for ipratropium documented in this encounterSouthview Medical Center10-10-2022 Miscellaneous Notes* Telephone Encounter - [...] you! Merissa Fam RN documented in this encounterSouthview Medical Center10-03-2022 History of Present illness Narrative* G Erasto Limon MD - 04/22/2022 11:25 AM EDT Radiation Oncology - On Treatment Review (OTR) Note PATIENT NAME: Cristal Gu PATIENT DIAGNOSIS: Lung cancer, left upper lobe, pleomorphic carcinoma, stage IIb [id number], stage IIB AJCC 8th edition (chest wall [...] outlined. Jyoti Limon MD documented in this encounterSouthview Medical Center09-28-2022 Miscellaneous Notes* Telephone Encounter - Virgie Dominguez - 04/17/2022 11:14 AM EDT Patient coming in to see you on Friday04/30/22 for follow up with labs. Please add lab orders. Thanks. Virgie Dominguez MA documented in this encounterSouthview Medical Center09-26-2022 History of Present illness Narrative* Jyoti Limon MD - 04/15/2022 9:13 AM EDT Radiation Oncology - On Treatment Review (OTR) Note PATIENT NAME: Cristal Gu PATIENT DIAGNOSIS: Lung cancer, left upper lobe, pleomorphic carcinoma, stage IIb [id number], stage IIB AJCC 8th edition (chest wall [...] well. Jyoti Limon MD documented in this encounterSouthview Medical Center09-22-2022 Miscellaneous Notes* Telephone Encounter - Rosibel Wheeler LPN - 04/11/2022 12:19 PM EDT Patient states pharmacy did contact him and they are working on it. Rosibel Wheeler LPN * Telephone Encounter - Rosibel Wheeler LPN - 04/01/2022 1:17 PM EDT I called [facility] in [place] to get an update on Okie's nebulizer as he said he does not have one at home. Ofe in the pharmacy is going to look into it to see why this prescription was never completed. Laurence call the patient to get updated insurance information. Rosibel Wheeler LPN documented in this encounterSouthview Medical Center09-19-2022 History of Present illness Narrative* Jyoti Limon MD - 04/08/2022 10:18 AM EDT Radiation Oncology - On Treatment Review (OTR) Note PATIENT NAME: Cristal Gu PATIENT DIAGNOSIS: Lung cancer, left upper lobe, pleomorphic carcinoma, stage IIb [id number], stage IIB AJCC 8th edition (chest wall [...] reviewed. Jyoti Limon MD documented in this encounterSouthview Medical Center09-14-2022 History of Present illness Narrative* [...] Dosing Weight: 58.9 kg Estimated kilocalorie needs: 3548-5105 kilocalories determined by 30-35 kcal/kg Estimated protein needs: 59-88 grams determined by 1.0-1.5 g/kg Dosing weight Estimated fluid needs: ~4996-7562 milliliters based on 1 mL per kcal [...] MS, RDN, LD documented in this encounterCleveland [id number] Miscellaneous Notes* Telephone Encounter - Carolyn Pérez MA - 04/01/2022 3:45 PM EDT [facility] if the RX can get Fax over The pharmacy need a new Rx [phone] Fax The code need to be on the RX documented in this encounterSouthview Medical Center09-12-2022 History of Present illness Narrative* Jyoti Limon MD - 04/01/2022 9:43 AM EDT Radiation Oncology - On Treatment Review (OTR) Note PATIENT NAME: Cristal Gu PATIENT DIAGNOSIS: Lung cancer, left upper lobe, pleomorphic carcinoma, stage IIb [id number], stage IIB AJCC 8th edition (chest wall [...] outlined. Jyoti Limon MD documented in this encounterSouthview Medical Center09-06-2022 History of Present illness Narrative* Jyoti Limon MD - 03/26/2022 9:48 AM EDT Radiation Oncology - On Treatment Review (OTR) Note PATIENT NAME: Cristal Gu PATIENT DIAGNOSIS: Lung cancer, left upper lobe, pleomorphic carcinoma, stage IIb [id number], stage IIB AJCC 8th edition (chest wall [...] prescribed. Jyoti Limon MD documented in this encounterSouthview Medical Center08-31-2022 History of Present illness Narrative* Jyoti Limon MD - 03/20/2022 4:42 PM EDT sim documented in this encounterSouthview Medical Center08-30-2022 History of Present illness Narrative* [...] cancer, seen for scheduled follow-up. INTERIM HISTORY: [facility] returns for follow-up and labs. He [...] (HCC) Peripheral arterial disease (HCC) 2019 R SEPARATIONS SCIENTIST stent PAST SURGICAL HISTORY: PAST SURGICAL HISTORY Procedure Laterality Date BACK SURGERY HX 2019 CABG (4) VEIN GRAFTS & ARTERIAL GRAFT(S) 2016 LOWER EXTREMITY GENOMICS SCIENTIST W/WO STENT Right 2019 right common femoral [...] which included preparing to see the patient, plxw-rh-ixjn patient care, completing clinical documentation, obtaining and/or reviewing separately obtained history, performing a medically appropriate examination, counseling and educating the pat ient/family/caregiver, ordering medications, tests, or procedures, independently interpreting results (not separately reported), and communicating results to the patient/family/caregiver. documented in this encounterSouthview Medical Center08-25-2022 History of Present illness Narrative* G Erasto Limon MD - 03/14/2022 12:00 AM EDT CRISTAL GU [id number] 03/14/2022 [facility] Radiation Oncology Department SIMULATION NOTE DATE OF SIMULATION: 03/14/2022 THERAPIST: Barbara Severino MACHINE: [email or web address] DIAGNOSIS: Malignant neoplasm of upper lobe, left bronchus or lungC34.12 AREA: LUNG CONTRAST: None <Select> Consent in Epic: Yes PATIENT POSITION: Supine. FIXATION DEVICE: In order to achieve accurate and reproducible treatments, the patient is immobilized with THE WINGBOARD, B PAD, CUSTOM VACBAG, SBRT KNEE SPONGE 4DCT WAS UTILIZED AT [facility] A time-out was conducted and recorded by [...] / NRS 21:18 PM documented in this encounterSouthview Medical Center08-25-2022 History of Present illness Narrative* Jyoti Limon MD - 03/14/2022 12:00 AM EDT CRISTAL GU [id number] 03/14/2022 [facility] Department of Radiation Oncology Treatment Planning [...] Limon M.D. 24:37 PM documented in this encounterSouthview Medical Center08-10-2022 Miscellaneous Notes* Telephone Encounter - [...] Pss * Telephone Encounter - Vanessa Fam [facility] - 02/26/2022 2:05 PM EDT Records faxed to [facility]. * Telephone Encounter - Ebony Barcenas [facility] - 02/26/2022 12:58 PM EDT [facility] derm scheduling out to April. Tomasa will you please fax records to [facility] jose [phone]. They will call pt to schedule, demo [...] all day. Pt has not seen a supervisor transcribing operators for his skin issue. Consult order pended if you agree. Denita Rai RN documented in this encounterSouthview Medical Center08-03-2022 History of Present illness Narrative* [...] rash is still pruritic. He is applying edov-lpd-wdmxonnmlcpif. He denies fevers, chills, night sweats and [...] (HCC) Peripheral arterial disease (HCC) 2019 R SEPARATIONS SCIENTIST stent PAST SURGICAL HISTORY: PAST SURGICAL HISTORY Procedure Laterality Date BACK SURGERY HX 2019 CABG (4) VEIN GRAFTS & ARTERIAL GRAFT(S) 2016 LOWER EXTREMITY GENOMICS SCIENTIST W/WO STENT Right 2019 right common femoral [...] hemoglobin has improved to 10.2. Patricia Miller APRN.FOUNTAIN CLERK documented in this encounterSouthview Medical Center07-25-2022 Miscellaneous Notes* Telephone Encounter - [...] possible. Denita Rai RN documented in this encounterSouthview Medical Center07-21-2022 Miscellaneous Notes* Telephone Encounter - Lisa Figueroa - 02/07/2022 4:30 PM EDT Patient sent to [facility] for TSC. Faxed order to [place] scheduling February 07, 2022 4:31 PM And the department is going to work with patient tomorrow. Lisa Figueroa documented in this encounterSouthview Medical Center07-21-2022 History of Present illness Narrative* Patricia Miller APRN.FOUNTAIN CLERK - 02/07/2022 2:30 PM EDT PATIENT NAME: [...] (HCC) Peripheral arterial disease (HCC) 2019 R SEPARATIONS SCIENTIST stent PAST SURGICAL HISTORY: PAST SURGICAL HISTORY Procedure Laterality Date BACK SURGERY HX 2019 CABG (4) VEIN GRAFTS & ARTERIAL GRAFT(S) 2016 LOWER EXTREMITY GENOMICS SCIENTIST W/WO STENT Right 2019 right common femoral [...] neck CT. The patient was seen by [facility] on 07/26/2021. Clinical evaluation most consistent with [...] PRBCs. Patricia Miller APRN.RONAL documented in this encounterSouthview Medical Center07-13-2022 Nurse Note* Merissa Fam RN - 01/30/2022 5:02 PM EDT Radiation Therapy - Patient Education Note PATIENT NAME: Cristal Gu PATIENT January 30, 2022 [facility] FACILITY/LOCATION: [facility] READINESS TO LEARN Cognitive Ability: Alert and [...] need for social work, van service, and typewriter operator automatic. Signed by: Merissa Fam RN documented in this encounterSouthview Medical Center07-13-2022 History of Present illness Narrative* G Erasto Limon MD - 01/30/2022 3:00 PM EDT Radiation Oncology -follow-up note PATIENT NAME: Cristal Gu PATIENT REQUESTING PROVIDER: Dr. Grigsby DIAGNOSIS: 66 year old male with lung cancer, left upper lobe, pleomorphic carcinoma, stage IIb [id number], stage IIB AJCC 8th edition (chest wall [...] (HCC) Peripheral arterial disease (HCC) 2019 R SEPARATIONS SCIENTIST stent Prior radiation therapy, collagen vascular disease, or inflammatory bowel disease: No PAST SURGICAL HISTORY Procedure Laterality Date BACK SURGERY HX 2019 CABG (4) VEIN GRAFTS & ARTERIAL GRAFT(S) 2016 LOWER EXTREMITY GENOMICS SCIENTIST W/WO STENT Right 2019 right common femoral [...] left upper lobe, pleomorphic carcinoma, stage IIb [id number], stage IIB AJCC 8th edition (chest wall [...] Christina Azul [address] [place] [address] Nina Grigsby ([facility]) [address] [place] [address] [place] [address] documented in this encounterSouthview Medical Center07-12-2022 History of Present illness Narrative* Ton Cervantes CRT - 01/29/2022 7:59 AM EDT PULM FUNCTION SMARTBLOCK: Provider: Verito Whelan MD Spirometry w/BD: 1 DLCO: 1 System: 5 - [id number] documented in this encounterSouthview Medical Center07-12-2022 History of Present illness Narrative* [...] on presentation. 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 He smoked 75 pack years [...] (HCC) Peripheral arterial disease (HCC) 2019 R SEPARATIONS SCIENTIST stent PAST SURGICAL HISTORY Procedure Laterality Date BACK SURGERY HX 2019 CABG (4) VEIN GRAFTS & ARTERIAL GRAFT(S) 2016 LOWER EXTREMITY GENOMICS SCIENTIST W/WO STENT Right 2019 right common femoral [...] Normal Neuro: Gait normal. Labs and imaging: [facility] [address] [place] [address] Test Date: 2022-01-29 Pat Name: CRISTAL GU Department: Room: Gender: Male Beef Ribber: : 1955 Requested By: Order Number: [id number] Reading MD: Interpretive Statements Pre BD: FVC [...] for spirometry met. // IMPRESSION: Site: ID: [id number] Name: CRISTAL GU Visit Date: 01/29/2022 Doctor: Beef Ribber: Ton Cervantes Age: 66 Date of : [...] 0.69 0.27 1.69 0.40 57 0.52 30 HPU48-26 (L/sec) 2.45 1.14 4.26 1.07 43 1.27 [...] 2.68 BLOOD GASES HgbGmL (gm/L) 120-180 94 [facility] [address] [place] [address] Test Date: 2021-05-21 Pat Name: CRISTAL GU Department: Room: Gender: Male Beef Ribber: : 1955 Requested By: Order Number: [id number] Reading MD: Interpretive Statements PRE AND POST [...] and carboxyhemoglobin corrected. // IMPRESSION: Site: ID: [id number] Name: CRISTAL GU Visit Date: 05/21/2021 Doctor: Beef Ribber: Merissa Ashley Age: 66 Date of : [...] 0.70 0.27 1.71 0.17 24 0.28 61 HGF42-21 (L/sec) 2.48 1.16 4.30 0.44 17 0.73 [...] * No suspicious FDG avid osseous lesion. Machine Clothing Man: PSCB Transcribe Date/Time: May 28 2021 9:33A [...] in 3 months Verito Whelan MD Respiratory [facility] documented in this encounterSouthview Medical Center07-12-2022 History of Present illness Narrative* [...] 29, 2022 7:40 AM documented in this encounterSouthview Medical Center07-05-2022 History of Present illness Narrative* [...] (HCC) Peripheral arterial disease (HCC) 2019 R SEPARATIONS SCIENTIST stent PAST SURGICAL HISTORY: PAST SURGICAL HISTORY Procedure Laterality Date BACK SURGERY HX 2019 CABG (4) VEIN GRAFTS & ARTERIAL GRAFT(S) 2016 LOWER EXTREMITY GENOMICS SCIENTIST W/WO STENT Right 2019 right common femoral [...] neck CT. [facility]. Clinical evaluation most consistent with [...] 8. Nina Grigsby MD documented in this encounterSouthview Medical Center06-27-2022 History of Present illness Narrative* [...] (HCC) Peripheral arterial disease (HCC) 2019 R SEPARATIONS SCIENTIST stent PAST SURGICAL HISTORY: PAST SURGICAL HISTORY Procedure Laterality Date BACK SURGERY HX 2019 CABG (4) VEIN GRAFTS & ARTERIAL GRAFT(S) 2016 LOWER EXTREMITY GENOMICS SCIENTIST W/WO STENT Right 2019 right common femoral [...] 8. Nina Grigsby MD documented in this encounterSouthview Medical Center06-06-2022 Miscellaneous Notes* Telephone Encounter - [...] [facility] [place] [facility] needed[facility] documented in this encounterSouthview Medical Center06-06-2022 History of Present illness Narrative* Denisse Campbell RN - 12/24/2021 11:53 AM EDT . documented in this encounterSouthview Medical Center06-06-2022 History of Present illness Narrative* [...] (HCC) Peripheral arterial disease (HCC) 2019 R SEPARATIONS SCIENTIST stent PAST SURGICAL HISTORY: PAST SURGICAL HISTORY Procedure Laterality Date BACK SURGERY HX 2019 CABG (4) VEIN GRAFTS & ARTERIAL GRAFT(S) 2016 LOWER EXTREMITY GENOMICS SCIENTIST W/WO STENT Right 2019 right common femoral [...] 8. Nina Grigsby MD documented in this encounterSouth[facility]05-[facility]-2022 Miscellaneous Notes* Telephone Encounter - [...] ok at this time. documented in this encounterSouthview [facility] Center05-18-2022 Miscellaneous Notes* Telephone Encounter - [...] better than cycle 1. 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 Do you need to [...] protocol. Denita Rai RN documented in this encounterSouthview [facility] Center05-16-2022 History of Present illness Narrative* [...] N/A Denita Rai RN documented in this encounterSouthview Medical Center05-16-2022 History of Present illness Narrative* [...] (HCC) Peripheral arterial disease (HCC) 2019 R SEPARATIONS SCIENTIST stent PAST SURGICAL HISTORY: PAST SURGICAL HISTORY Procedure Laterality Date BACK SURGERY HX 2019 CABG (4) VEIN GRAFTS & ARTERIAL GRAFT(S) 2016 LOWER EXTREMITY GENOMICS SCIENTIST W/WO STENT Right 2019 right common femoral [...] scheduled. Yusef Pandya PA-C documented in this encounterSouthview Medical Center05-16-2022 Miscellaneous Notes* Telephone Encounter - Vanessa Beatty Cristel [facility] - 12/03/2021 9:01 AM EDT Records faxed. * Telephone Encounter - Alexandria Ike Spicer Sec - 11/30/2021 11:08 AM EDT Appt with PCP Dr Azul for hypotension on Friday12-07-21 1:45pm Benjie Randolphsenait is known to Dr azul but please send most recent records including med list and Blood pressure. Dr Azul has a new fax # [phone] documented in this encounterSouthview Medical Center05-13-2022 History of Present illness Narrative* Patricia Miller APRN.[facility] - 11/30/2021 10:41 AM EDT PATIENT NAME: [...] (HCC) Peripheral arterial disease (HCC) 2019 R SEPARATIONS SCIENTIST stent PAST SURGICAL HISTORY: PAST SURGICAL HISTORY Procedure Laterality Date BACK SURGERY HX 2019 CABG (4) VEIN GRAFTS & ARTERIAL GRAFT(S) 2016 LOWER EXTREMITY GENOMICS SCIENTIST W/WO STENT Right 2019 right common femoral [...] treatment. Patricia Miller APRN.RONAL documented in this encounterSouthview Medical Center05-13-2022 Nurse Note* Pavithra Jacinto MA - 11/30/2021 10:31 AM EDT Patient states he is feeling better today, he even went out for Breakfast. Pavithra Jacinto MA documented in this encounterSouthview Medical Center05-12-2022 Miscellaneous Notes* Telephone Encounter - [...] advise? Denita Rai RN documented in this encounterSouthview Medical Center05-09-2022 History of Present illness Narrative* [...] (HCC) Peripheral arterial disease (HCC) 2019 R SEPARATIONS SCIENTIST stent PAST SURGICAL HISTORY: PAST SURGICAL HISTORY Procedure Laterality Date BACK SURGERY HX 2019 CABG (4) VEIN GRAFTS & ARTERIAL GRAFT(S) 2016 LOWER EXTREMITY GENOMICS SCIENTIST W/WO STENT Right 2019 right common femoral [...] closely. Nina Grigsby MD documented in this encounterSouthview Medical Center05-02-2022 Miscellaneous Notes* Telephone Encounter - Denita Rai RN - 11/19/2021 2:20 PM EDT Per Jaclyn Azul's office, pt has an appointment tomorrow @ 3 PM. Denita Rai RN * Telephone Encounter - Yusef Pandya PA-C - 11/19/2021 12:17 PM EDT Bmp [...] 2.09 Ros Navarro RN documented in this encounterSouthview Medical Center05-02-2022 Miscellaneous Notes* Telephone Encounter - Denita Rai RN - 11/19/2021 11:39 AM EDT Voicemail message received from Jaclyn @ Dr Azul's office. They can see pt tomorrow @ 1030 AM. Pt notified and states that he has an appointment in [place] tomorrow. Call placed to Dr Azul's office. [...] back. Denita Rai RN documented in this encounterSouthview Medical Center05-02-2022 Miscellaneous Notes* Telephone Encounter - Denita Rai RN - 11/19/2021 9:42 AM EDT DISCHARGE CALL BACK Today's date: November 19, 2021 Notified of Pt discharge by: Hospital records requested. Patient discharged on 11/18/2021 from [facility] to Home Primary Cancer Diagnosis: Lung Cancer Admitting Diagnosis: Hypertension, Acute renal failure Discharge Summary/SBAR reviewed: Yes Handoff Discussed with Transitional Structural Draftsman: NO Psychosocial Risk Factors: None If patient [...] back. Denita Rai RN documented in this encounterSouthview Medical Center04-29-2022 Miscellaneous Notes* Telephone Encounter - Denita Rai RN - 11/16/2021 4:41 PM EDT Pt notified and verbalizes understanding. Agrees to go to [facility] ER for eval. Report phoned to Kelli @ [facility] ER. Med list and today's labs faxed. [...] 25 mg BID as prescribed per his [facility] R Programmer. Advised he notify his electroslag welding machine operator of his readings. Any other suggestions for him? Should he go to the ER since it is so late in the day? Denita Rai RN documented in this encounterSouthview Medical Center04-29-2022 Miscellaneous Notes* Telephone Encounter - [...] Thanks! Denita Rai RN documented in this encounterSouthview Medical Center04-29-2022 History of Present illness Narrative* Vanessa Cruz RN - 11/16/2021 9:17 AM EDT Creat 2.33. Catie, primary care nurse spoke with Dr. Grigsby and to patient. Patient is to come in on Friday for repeat labs and IVF. Vanessa Cruz RN * Aurelia Bradley RN - 11/16/2021 9:05 AM EDT Pt took BP meds at about 0930, he will recheck his BP at home in 2 hours. Aurelia Bradley RN documented in this encounterSouthview Medical Center04-27-2022 Miscellaneous Notes* Telephone Encounter - [...] the treatment schedule. Thanks! documented in this encounterSouthview Medical Center04-26-2022 History of Present illness Narrative* MARGARET Finnegan - 11/13/2021 3:59 PM EDT SOCIAL WORK FOLLOW UP NOTE: CANCER CENTER Date of service:11/13/21 [place] Riccardo is being seen for a follow [...] as appropriate. SUMA Finnegan documented in this encounterSouthview Medical Center04-26-2022 History of Present illness Narrative* Vanessa Cruz RN - 11/13/2021 11:35 AM EDT IVF today and labs tomorrow. Vanessa Cruz RN documented in this encounterSouthview Medical Center04-25-2022 Miscellaneous Notes* Telephone Encounter - [...] labs again on 11/14. documented in this encounterSouthview Medical Center04-22-2022 Miscellaneous Notes* Telephone Encounter - [...] protocol. Denita Rai RN documented in this encounterSouthview Medical Center04-18-2022 History of Present illness Narrative* Patricia Miller APRN.FOUNTAIN CLERK - 11/05/2021 9:00 AM EDT PATIENT NAME: Cristal Gu DATE: 11/05/2021 (Elements copied from Dr. Nina Grigsby's note dated 10/22/2021, have been reviewed and updated where appropriate, and all reflect current assessment and medical decision making during today's encounter, November 05, 2021) PRIMARY CARE PHYSICIAN: Dr. Christina Azul OTHER PHYSICIANS: Dr. Verito Whelan, Dr. Marianen Fields CC: This is a 66 year [...] (HCC) Peripheral arterial disease (HCC) 2019 R SEPARATIONS SCIENTIST stent PAST SURGICAL HISTORY: PAST SURGICAL HISTORY Procedure Laterality Date BACK SURGERY HX 2019 CABG (4) VEIN GRAFTS & ARTERIAL GRAFT(S) 2016 LOWER EXTREMITY GENOMICS SCIENTIST W/WO STENT Right 2019 right common femoral [...] care would be adjuvant chemotherapy with a akhiok doublet followed by adjuvant radiation therapy. His [...] indicated. Patricia Miller APRN.RONAL documented in this encounterSouthview Medical Center04-13-2022 History of Present illness Narrative* [...] 31, 2021 2:46 PM documented in this encounterSouthview Medical Center04-12-2022 Miscellaneous Notes* Telephone Encounter - Denita Rai RN - 10/30/2021 10:33 AM EDT Spoke w/ Jaz regarding pt's MRI. Informed her that the pt is currently scheduled to have this done @ [facility] in [place]. No need to schedule w/ [facility] at this time. Informed her that the pt is aware of his [place] appointment. Denita Rai RN * Telephone Encounter - Denita Rai RN - 10/30/2021 10:22 AM EDT 3rd attempt made to contact Jaz @ [facility] Scheduling. No answer. Message left requesting call back. Denita Rai RN * Telephone Encounter - Denita Rai RN - 10/29/2021 11:27 AM EDT 2nd attempt made to contact Jaz @ [facility]. No answer. Message left requesting call back. Denita Rai RN * Telephone Encounter - Denita Rai RN - 10/26/2021 3:40 PM EDT Voicemail message received from [facility] Scheduling requesting to speak w/ a nurse regarding pt's MRI. Call placed to number provided. No answer. Message left requesting call back. Denita Rai RN documented in this encounterSouthview Medical Center04-12-2022 Miscellaneous Notes* Telephone Encounter - Denita Rai RN - 10/30/2021 8:59 AM EDT FYI: Pt does not wish to enroll in a trial at this time. Denita Rai RN documented in this encounterSouthview Medical Center04-11-2022 Miscellaneous Notes* Telephone Encounter - [...] Thanks! Denita Rai RN documented in this encounterSouthview Medical Center04-11-2022 History of Present illness Narrative* Denita Rai RN - 10/29/2021 10:58 AM EDT Structural Draftsman Pre Chemo Patient identified by name and date of . YES Confirmed date and time for chemotherapy ? YES Other appointments (labs, imaging) discussed? YES Discussed where to park (yeast pumper), charge for parking NO Discussed where to [...] N/A Denita Rai RN documented in this encounterSouthview Medical Center04-11-2022 History of Present illness Narrative* Katlin Omer, [facility] - 10/29/2021 10:53 AM EDT Images from the original note were not included. [facility] [place] Department of Pharmacy Oncology Pharmacy Medication Education [...] patient Katlin Omer RPh documented in this encounterSouthview Medical Center04-08-2022 Miscellaneous Notes* Telephone Encounter - [...] Thanks! Denita Rai RN documented in this encounterSouthview Medical Center04-07-2022 Miscellaneous Notes* Telephone Encounter - Denita Rai RN - 10/25/2021 8:10 AM EDT Scripts for antiemetics and folic acid pended. Please review and approve. Thanks, Denita Rai RN documented in this encounterSouthview Medical Center04-06-2022 History of Present illness Narrative* G Erasto Limon MD - 10/24/2021 3:02 PM EDT Radiation Oncology - New Patient/Consult Note PATIENT NAME: Cristal Gu PATIENT REQUESTING PROVIDER: Dr. Grigsby DIAGNOSIS: 66 year old male with lung cancer, left upper lobe, pleomorphic carcinoma, stage IIb [id number], stage IIB AJCC 8th edition (chest wall [...] (HCC) Peripheral arterial disease (HCC) 2019 R SEPARATIONS SCIENTIST stent Prior radiation therapy, collagen vascular disease, or inflammatory bowel disease: No PAST SURGICAL HISTORY Procedure Laterality Date BACK SURGERY HX 2019 CABG (4) VEIN GRAFTS & ARTERIAL GRAFT(S) 2016 LOWER EXTREMITY GENOMICS SCIENTIST W/WO STENT Right 2019 right common femoral [...] left upper lobe, pleomorphic carcinoma, stage IIb [id number], stage IIB AJCC 8th edition (chest wall [...] by: Jyoti Limon MD cc: Christina Azul [facility] [place] [address] Nina Grigsby ([facility]) [address] [place] [address] [place] [address] documented in this encounterSouthview Medical Center04-04-2022 Miscellaneous Notes* Telephone Encounter - Raine Gallegos RN - 10/22/2021 11:16 AM EDT Returned call to Mr Gu and identified self by name and title. Cristal explained that he had received a call from his [employer] company who questioned thelocation of his upcoming MRI. Cristal was a bit confused after the call and wanted to confirm that our office did not have any concerns regarding completing his MRI at [facility]. I assured Cristal that his insurance has authorized the imaging and it may be completed at any F location. He was scheduled for first available, and voiced comfort with driving to [place]. No additional questions at this time. Raine METZ, RN Specialty Structural Draftsman * Telephone Encounter - Mary Alice Cabezas ADM - 10/19/2021 3:48 PM EDT Cristal Gu is calling Renetta Ponce MD today regarding Care Coordination, calling to discuss going to another hospital for his MRI. Patient has been identified by name and birthdate. Duration of symptoms: N/A Requesting response back: call on cell [phone] (home) [phone] (cell) Mary Alice Cabezas ADM October 19, 2021 documented in this encounterSouthview Medical Center04-01-2022 History of Present illness Narrative* Renetta Ponce MD - 10/19/2021 2:40 PM EDT Images from the original note were not included. [facility] NEW PATIENT VISIT Department of Hematology and Medical Oncology PATIENT NAME: Cristal Gu [facility] NO.: [id number] DATE OF SERVICE: 10/19/2021 PCP: Christina Azul MD REFERRING PROVIDER: Marianne Fields MD. DIAGNOSIS: Pleomorphic carcinoma of the DARCIE STAGE: [id number], stage IIB AJCC 8th edition (chest wall [...] disease, PAD s/p stenting, NSTEMI s/p CABG [id number] and alcohol use who presents to discuss [...] [facility], [facility] 2.[facility] cm[facility] He saw Dr. Fields from thoracic surgery and had a PET CT at [facility] which showed hypermetabolic uptake in the [...] (HCC) Peripheral arterial disease (HCC) 2019 R SEPARATIONS SCIENTIST stent PAST SURGICAL HISTORY: PAST SURGICAL HISTORY Procedure Laterality Date BACK SURGERY HX 2019 CABG (4) VEIN GRAFTS & ARTERIAL GRAFT(S) 2016 LOWER EXTREMITY GENOMICS SCIENTIST W/WO STENT Right 2019 right common femoral [...] receive therapy closer to home at the [facility] location. I will place a referral for him to see oncology at that site. All questions and concerns have been addressed. Renetta Ponce MD, FACP Associate Staff [facility] October 19, 2021 CC: Marianne Fields MD documented in this encounterSouthview Medical Center04-01-2022 Miscellaneous Notes* Telephone Encounter - Virgie Dominguez - 01/14/2022 9:30 AM EDT Patient scheduled to see you on Friday01/22/22 for follow up treatment. Please add lab orders. Thanks, Virgie Dominguez MA documented in this encounterSouthview Medical Center04-01-2022 Miscellaneous Notes* Telephone Encounter - Virgie Dominguez - 01/30/2022 12:49 PM EDT Patient coming in on 02/07/22 for follow up labs. Please add lab orders. ThanksVirgie MA documented in this encounterSouthview Medical Center04-01-2022 Nurse Note* Denisse Brasher LPN - 10/19/2021 9:56 AM EDT Additional intake questions: Has the patient had fever, nausea, vomiting, diarrhea, constipation, fatigue for > 1 week? No Does the patient have a decreased appetite? No Does patient want to see a Electronic Gaming Device Supervisor? No (yes to any of above refer patient to schedulers for dietitian appointment) ) Does patient have any new or increased numbness or tingling of extremities? No Is patient interested in fertility information? No Does patient need any prescription refills? No Does patient have an advanced directive in place? No, Patient referred to [facility] Electronically Signed By: Denisse Brasher LPN documented in this encounterSouthview Medical Center03-24-2022 History of Present illness Narrative* Aracelis Carrillo APRN.FOUNTAIN CLERK - 10/11/2021 3:22 PM EDT Images from the original note were not included. [facility] - OUTPATIENT THORACIC SURGERY CLINIC NOTE PT NAME: [facility] NO: [id number] THORACIC SURGEON: Dr Marianne Fields DATE OF [...] in-situ hybridization tests have been determined by [facility] Pathology and Laboratory Medicine [place] ([facility]) in a manner consistent with CLIA requirements. One or more of these tests have not been cleared or approved by the FDA. [facility] is regulated under CLIA as qualified to [...] f/u 11/20/21 - oncology consult at the [facility] in [place] Aracelis Carrillo APRN.CNP documented in this encounterSouthview Medical Center03-24-2022 History of Present illness Narrative* [...] 11, 2021 3:11 PM documented in this encounterSouthview Medical Center11-08-2021 Procedure note* Vanessa Joaquin RT(R) [...] 0745 PATIENT DISCHARGED TO: Ambulatory patient, left OR department area. A Diagnostic radioactive procedure has taken place, with no further precautions necessary other than routine body substance precautions. More information regarding radiation safety can be found usingthis link: [email or web address] SIGNATURE: RT Ayaz(Marcella) PATIENT NAME: Cristal Gu DATE: May 28, 2021 TIME: 8:14 AM PAGER/CONTACT #: documented in this encounterSouthview Medical CenterDispremier health [facility]r summary Author Jair Nichols [facility] March 20, 2024 2:40pm Note Date/Time March 20, 2024 2: 40pm [facility] [address] [place] [address] Discharge Summary Signed Patient: Cristal Gu MR#: [id number] : 1955 Acct:[id number] Age/Sex: 69 / M Adm Date: 4 Loc: Room: [address] [place] [address]: Jair Nichols MD Copies to: [...] can be found in the EHR of [facility]. The patient left hospital appropriately in stable [...] % (Auto) 82.3, Lymph % (Auto) 8.6, [place] % (Auto) 8.7, Eos % (Auto) 0.2, Baso % (Auto) 0.2, Nucleat RBC Rel Count 0.0, Neut # (Auto) 4.8, Lymph # (Auto) 0.5 L, [place] # (Auto) 0.5, Eos # (Auto) 0.0, [...] signed by Jair Nichols MD> 03/20/24 1440 [facility] Work Phone: Evaluation note* Diagnosis Malignant neoplasm of upper lobe of left lung (HCC)- Primary documented in this encounter [facility] [place] [facility]* Diagnosis Follow-up examination following surgery Follow-up examination, following unspecified surgery documented in this encounter [facility] note* Diagnosis Malignant neoplasm of upper lobe of left lung (HCC) [facility] [place] [facility]* Diagnosis Malignant neoplasm of upper lobe of left lung (HCC)- Primary [facility] [place] [facility]* Diagnosis Malignant neoplasm of upper lobe of left lung (HCC)- Primary documented [facility] [place] [facility] [place] [facility]* Diagnosis Malignant neoplasm of upper lobe of left lung (HCC) [facility] [place] [facility]* Diagnosis Malignant neoplasm of upper lobe of left lung (HCC)- Primary documented [facility] [place] [facility]* Diagnosis Malignant neoplasm of upper lobe of left lung (HCC)- Primary documented [facility] [place] [facility]* Diagnosis Malignant neoplasm of upper lobe of left lung (HCC)- Primary documented [facility] [place] [facility]* Diagnosis Malignant neoplasm of upper lobe of left lung (HCC)- Primary documented [facility] [place] [facility]* Diagnosis Acute kidney injury (HCC)- Primary Acute kidney failure, unspecified documented [facility] this [facility] [place] [facility]* Diagnosis Acute kidney injury (HCC)- Primary Acute kidney failure, unspecified Malignant neoplasm of upper lobe of left lung (HCC) documented in this encounter [facility] [place] [facility]* Diagnosis Malignant neoplasm of upper lobe of left lung (HCC)- Primary Acute kidney injury (HCC) Acute kidney failure, unspecified documented [facility] this encounter [facility] [place] [facility]* Diagnosis Malignant neoplasm of upper lobe of left lung (HCC)- Primary Acute kidney injury (HCC) Acute kidney failure, unspecified documented [facility] encounter [facility] [place] [facility]* Diagnosis Malignant neoplasm of upper lobe of left lung (HCC)- Primary Acute kidney injury (HCC) Acute kidney failure, unspecified documented [facility] encounter [facility] [place] [facility]* Diagnosis Malignant neoplasm of upper lobe of left lung (HCC)- Primary Acute kidney injury (HCC) Acute kidney failure, unspecified documented in this encounter [facility] [place] [facility]* Diagnosis Malignant neoplasm of upper lobe of left lung (HCC)- Primary Acute kidney injury (HCC) Acute kidney failure, unspecified documented in this encounter [facility] [place] [facility]* Diagnosis Malignant neoplasm of upper lobe of left lung (HCC)- Primary documented in this encounter [facility] [place] [facility]* Diagnosis Malignant neoplasm of upper lobe [...] anemia documented in this encounter [facility] [place] [facility]* Diagnosis Malignant neoplasm of upper lobe of left lung (HCC)- Primary [facility]* Diagnosis Malignant neoplasm of upper lobe of left lung (HCC)- Primary 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 Skin infection Unspecified local infection of skin and subcutaneous tissue documented in this encounter [place] [facility] [place] [facility]* Diagnosis Malignant neoplasm of upper lobe of left lung (HCC)- Primary 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 documented in this encounter [place] [facility] [place] [facility]* Diagnosis Chronic obstructive pulmonary disease, unspecified COPD type (HCC) Lung nodule Solitary pulmonary nodule documented in this encounter [facility] [place] [facility]* Diagnosis Chronic obstructive pulmonary disease, unspecified COPD type (HCC) Lung nodule Solitary pulmonary nodule [facility] [place] [facility] [facility]* Diagnosis Chronic obstructive pulmonary disease, unspecified COPD type (HCC) Malignant neoplasm of upper lobe of left lung (HCC) PAD (peripheral artery disease) (HCC) Peripheral vascular disease, unspecified documented in this encounter [place] [facility] [place] [facility]* Diagnosis Malignant neoplasm of upper lobe of left lung (HCC) documented in this encounter [place] [facility] [place] [facility]* Diagnosis Malignant neoplasm of upper lobe of left lung (HCC)- Primary documented [facility] [place] [facility]* Diagnosis Malignant neoplasm of upper lobe of left lung (HCC)- Primary 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 Acute kidney injury (HCC) Acute kidney failure, unspecified Skin infection Unspecified local infection of skin and subcutaneous tissue documented in this encounter [place] [facility] [place] [facility]* Diagnosis Malignant neoplasm of upper lobe of left lung (HCC)- Primary 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 Acute kidney injury (HCC) Acute kidney failure, unspecified Skin infection Unspecified local infection of skin and subcutaneous tissue documented in this encounter [facility] [place] [facility]* Diagnosis Chronic obstructive pulmonary disease, unspecified COPD type (HCC)- Primary [facility]* Diagnosis Skin rash- Primary Rash [...] this encounter [facility] noteNo assessment information availableFisher[facility] Work Phone: Evaluation note* Diagnosis Malignant neoplasm [...] or lung (HCC) [facility]* [...] (chronic) documented in this encounter [facility] [place] [facility]* Diagnosis Primary malignant neoplasm of left [...] nonspecific skin eruption [facility] [place] [facility]* Diagnosis Primary malignant neoplasm of left [...] nonspecific skin eruption [facility] [place] [facility] Diagnosis 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) documented [facility] [place] [facility]* Diagnosis 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 Cancer related pain Neoplasm related pain (acute) (chronic) documented [facility] [place] [facility]* Diagnosis Palliative care by specialist- Primary 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 Nausea Nausea alone Anorexia Protein-calorie malnutrition, unspecified severity (HCC) Anxiety Anxiety state, unspecified 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 due to medical condition classified elsewhere [facility] Diagnosis Malignant neoplasm of upper lobe of left lung (HCC)- Primary [facility] [place] [facility]* Diagnosis Malignant neoplasm of upper lobe of left lung (HCC) documented [facility] [place] [facility]* Diagnosis Oropharyngeal cancer (HCC)- Primary Malignant neoplasm of oropharynx, unspecified site Tonsillar mass Swelling, mass, or lump in head and neck Malignant neoplasm of upper lobe of left lung (HCC) documented [facility] [place] [facility]* Diagnosis Oropharnyx cancer (HCC)- Primary [facility] [place] [facility]* Diagnosis Malignant neoplasm of upper lobe of left lung (HCC)- Primary Centrilobular emphysema (HCC) Other emphysema CAD in [place] artery Coronary atherosclerosis of [place] coronary artery PVD (peripheral vascular disease) (HCC) [...] Nausea alone [facility] [place] [facility] Diagnosis 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 Tonsillar mass Swelling, mass, or lump in head and neck Primary hypertension Unspecified essential hypertension Centrilobular emphysema (HCC) Other emphysema Coronary artery disease involving [place] coronary artery of [place] heart without angina pectoris Hypothyroidism due to medication Cancer related pain Neoplasm related pain (acute) (chronic) [facility] [place] [facility] Diagnosis Primary malignant neoplasm of left [...] specified administrative purpose [facility] [place] [facility] Diagnosis 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 [facility]* Diagnosis 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 Swelling of arm Swelling of limb 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) documented [facility] [place] [facility]* Diagnosis 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 Chronic obstructive pulmonary disease, unspecified COPD type (HCC) Shortness of breath [facility] [place] [facility]* Diagnosis Chronic obstructive pulmonary disease, unspecified [...] finger Cyanosis [facility] [place] [facility]* Diagnosis 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) [facility] [place] [facility]* Diagnosis Malignant neoplasm of upper lobe [...] left lung (HCC) Coronary artery disease involving [place] coronary artery of [place] heart without angina pectoris PAD (peripheral artery disease) (HCC) Peripheral vascular disease, unspecified Dyspnea on exertion Other dyspnea and respiratory abnormality documented [facility] [place] [facility]* Diagnosis Encounter for palliative care- Primary [...] Anxiety state, unspecified documented [facility] [place] [facility]* Diagnosis 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) 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 Chronic obstructive pulmonary disease, unspecified COPD type (HCC) Altered mental status, unspecified altered mental status type documented [facility] [place] [facility]* Diagnosis Onset Date Resolution Status Chronic left shoulder pain a cute COPD (chronic obstructive pulmonary disease) acute Debility acute Forgetfulness acute Generalized weakness acute History of lung cancer acute Mass of left lung acute Unsteady gait acute [facility] Work Phone: Evaluation note* Diagnosis 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 Grigsby's office call tomorrow let them know that you were seen in the emergency department Please return here if you develop any chest pain, shortness of breath, numbness, tingling or any other concerns[facility] Work Phone: Hospital Discharge instructions Additional Instructions If your symptoms return/worsen or you develop any further concerns or symptoms please see your doctor or return to the emergency department immediately. As we discussed admission for further management is recommended but you will follow-up with your oncologist and your PCP. You may return to the emergency department should you change her mind.[facility] Work Phone: Hospital Discharge instructions Additional Instructions Call [facility] Central Scheduling on Friday at [phone] to schedule outpatient Brain MRI. The MRI may require prior authorization through your insurance before it can be scheduled, central scheduling will assist with this if it is needed.[facility] Work Phone: [facility] for referral (narrative)* Diagnostic Procedure Only (Routine) - Pending Review Specialty Diagnoses / Procedures Referred By Contac t Referred To Contact MOLECULAR & FUNCTIONAL IMAGING Diagnoses Malignant neoplasm of unspecified part of unspecified bronchus or lung (HCC) Procedures NM BONE WHOLE BODY BONE &/JOINT IMAGING WHOLE BODY Jyoti Limon MD [address] [place] [address] [place] [address] Molecular & Functional Imaging [address] [place] [address] Referral ID Status Reason Start Date Expiration Date Visits Requested Visits Authorized [id number] Pending Review Auto-Generat ed Referral 04/08/2022 05/08/[address] [facility] for referral (narrative)* Diagnostic Procedure Only (Routine) - Authorized Specialty Diagnoses / Procedures Referred By Contac t Referred To Contact MOLECULAR & FUNCTIONAL IMAGING Diagnoses Lung nodules Procedures NM PET/CT SKULL-THIGH SUBSEQUENT PET IMAGING CT ATTENUATION SKULL BASE MID-THIGH Nina Grigsby MD [address] [place] [address] [place] [address] Molecular & Functional Imaging [address] [place] [address] Referral ID Status Reason Start Date Expiration Date Visits Requested Visits Authorized [id number] Authorized Auto-Generat ed Referral 09/23/2022 10/23/[address] [facility] for referral (narrative)* Diagnostic Procedure Only (Urgent) - Closed Specialty Diagnoses / Procedures Referred By Contac t Referred To Contact MOLECULAR & FUNCTIONAL IMAGING Diagnoses Malignant neoplasm of unspecified part of unspecified bronchus or lung (HCC) Procedures NM PET/CT WHOLE BODY INITIAL TUMOR IMAG PET W/CONCURNT CT-WHOLE BODY Marianne Fields MD [address] [facility] [address] [place] [address] Molecular [facility] Functional Imaging [address] [place] [address] Referral ID Status Reason Start Date Expiration Date V isits Requested Visits Authorized [id number] Closed Clearance Not Met - Admin/Chairm an/Director Advise to Postpone/Res chedule or Not Proceed 05/14/2021 06/13/2021 2 2 [facility] for referral (narrative)* Diagnostic Procedure Only (Routine) - Authorized Specialty Diagnoses / Procedures [facility]erred To Contact MOLECULAR & FUNCTIONAL IMAGING Diagnoses 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) Procedures NM PET/CT SKULL-THIGH SUBSEQUENT PET IMAGING CT ATTENUATION SKULL BASE MID-THIGH Nina Grigbsy MD [address] [place] [address] [place] [address] Molecular & Functional Imaging [address] [place] [address] Referral ID Status Reason Start Date Expiration Date Visits Requested Visits Authorized [id number] Authorized Auto-Generat ed Referral 08/25/2023 09/23/2024 1 1 [facility] for referral (narrative)* Diagnostic Procedure Only (Routine) - Authorized Specialty Diagnoses / Procedures Referred By Contac Referred To Contact MOLECULAR & FUNCTIONAL IMAGING Diagnoses 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 Swelling of arm Cancer associated pain Procedures NM PET/CT SKULL-THIGH SUBSEQUENT PET IMAGING CT ATTENUATION SKULL BASE MID-THIGH Yusef Pandya PA-C [address] [place] [address] [place] [address] Molecular & Functional Imaging [address] [place] [address] Referral ID Status Reason Start Date Expiration Date Visits Requested Visits Authorized [id number] Authorized Auto-Generat ed Referral 02/03/2024 03/04/2025 1 1 * Diagnostic Procedure Only (Urgent) - New Request Specialty Diagnoses / Procedures Referred By Contac t Referred To Contact US IMAGING Diagnoses 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 for referral (narrative)* Outpatient Procedure (Routine) - Authorized Specialty Diagnoses / Procedures [facility] Diagnoses Centrilobular emphysema (HCC) Dyspnea on exertion Procedures LUNG DIFFUSION CAPACITY (DLCO) [place] [address] [place] [address] [facility] [place] [address] [place] [address] Referral ID Status Reason Start Date Expiration Date Visits Requested Visits Authorized [id number] Authorized Auto-Generat ed Referral 03/15/2024 04/14/2025 1 1 * Outpatient Procedure (Routine) - Authorized Specialty Diagnoses / Procedures Referred By Contac t Referred To Contact [facility] Diagnoses Centrilobular emphysema (HCC) Dyspnea on exertion Procedures SPIROMETRY WITH DILATOR IF OBSTRUCTED BRNCDILAT RSPSE SPMTRY PRE&[place] [address] [place] [address] [facility] [place] [address] [place] [address] Referral ID Status Reason Start Date Expiration Date Visits Requested Visits Authorized [id number] Authorized Auto-Generat ed Referral 03/15/2024 04/14/[address] 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 for visit Narrative* Diagnostic Procedure Only (Urgent) - Closed Specialty Diagnoses / Procedures Referred By Contac t Referred To Contact MOLECULAR & FUNCTIONAL IMAGING Diagnoses Malignant neoplasm of unspecified part of unspecified bronchus or lung (HCC) Procedures NM PET/CT WHOLE BODY INITIAL TUMOR IMAG PET W/CONCURNT CT-WHOLE BODY Marianne Fields MD [address] [facility] [address] [place] [address] Molecular & Functional Imaging [address] [place] [address] Referral ID Status Reason Start Date Expiration Date V isits Requested Visits Authorized [id number] Closed Clearance Not Met - Admin/Chairm an/Director Advise to Postpone/Res chedule or Not Proceed 05/14/2021 06/13/2021 2 2 [facility] Summary Purpose Family History Relationship Condition Age at Onset Recorded Date/T jackeline father Heart problem Unknown Malignant neoplasm of lung Unknown Advance Directives Documents on File Type Date Recorded 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 Advance Directive(s) 09/03/2021 12:55 PM Advance Directive(s) 07/10/2021 11:36 AM Documents on File Type Date Recorded 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 Advance Directive(s) 09/03/2021 12:55 PM Advance Directive(s) 07/10/2021 11:36 AM Advance Directive Response Recorded Date/ Time Advance Directives No May 11:17am Reason for Referral Specialty Diagnoses / Procedures Referred By Contac t Referred To Contact Oncology Diagnoses Malignant neoplasm of upper lobe of left lung (HCC) Procedures CONSULT TO ONCOLOGY OFFICE/OUTPATIENT [facility] 60-74 MINUTES Aracelis Carrillo APRN.CNP [address] [place] [address] Referral ID Status Reason Start Date Expiration Date Visits Requested Visits Authorized [id number] Authorized PCP Requested Referral 10/11/2021 10/11/2022 1 1 Specialty Diagnoses / Procedures Referred By Contac t Referred To Contact Oncology Diagnoses Malignant neoplasm of upper lobe of left lung (HCC) Procedures CONSULT TO ONCOLOGY OFFICE/OUTPATIENT [facility] 60-74 MINUTES Renetta Ponce MD [address] [place] [id number] Referral ID Status Reason Start Date Expiration Date V isits Requested Visits Authorized [id number] Closed PCP Requested Referral 10/26/2021 10/19/2022 1 1 Specialty Diagnoses / Procedures Referred By Contac t Referred To Contact MR IMAGING Diagnoses Malignant neoplasm of upper lobe of left lung (HCC) Procedures MRI BRAIN WO/W IVCON MRI BRAIN BRAIN STEM W/O W/CONTRAST MATERIAL Renetta Ponce MD [address] [place] [address] Mr Imaging Referral ID Status Reason Start Date Expiration Date Visits Requested Visits Authorized [id number] Authorized Auto-Generat ed Referral 10/26/2021 11/18/2021 1 1 Specialty Diagnoses / Procedures Referred By Contac t Referred To Contact Dermatology Diagnoses Skin rash Procedures CONSULT TO DERMATOLOGY OFFICE/OUTPATIENT [facility] 60-74 MINUTES Patricia Miller, TOWER EXCAVATOR OPERATOR.[address] [place] [address] Referral ID Status Reason Start Date Expiration Date Visits Requested Visits Authorized [id number] Authorized PCP Requested Referral 02/26/2022 02/26/2023 1 1 Specialty Diagnoses / Procedures Referred By Contac t Referred To Contact CT IMAGING Diagnoses Malignant neoplasm of unspecified part of unspecified bronchus or lung (HCC) Procedures CT CHEST W IVCON DIAGNOSTIC COMPUTED TOMOGRAPHY THORAX W/CONTRAST Jyoti Limon MD [address] [place] [address] [place] [address] Ct Imaging Referral ID Status Reason Start Date Expiration Date V isits Requested Visits Authorized [id number] Closed Auto-Generate d Referral 06/11/2022 07/11/2023 1 1 Specialty Diagnoses / Procedures Referred By Contac t Referred To Contact CT IMAGING Diagnoses Malignant neoplasm of unspecified part of unspecified bronchus or lung (HCC) Procedures CT CHEST W IVCON DIAGNOSTIC COMPUTED TOMOGRAPHY THORAX W/CONTRAST Nina Grigsby MD [address] [facility] [place] [address] Ct Imaging Referral ID Status Reason Start Date Expiration Date Visits Requested Visits Authorized [id number] Pending Review Auto-Generat ed Referral 08/20/2022 09/19/2023 1 1 Specialty Diagnoses / Procedures Referred By Contac t Referred To Contact CT IMAGING Diagnoses Malignant neoplasm of upper lobe of left lung (HCC) Procedures CT ABD/PEL W IVCON CT ABD & PELVIS W/CONTRAST Nina Grigsby MD [address] [facility] [place] [address] Ct Imaging Referral ID Status Reason Start Date Expiration Date Visits Requested Visits Authorized [id number] Pending Review Auto-Generat ed Referral 08/20/2022 09/19/2023 1 1 Specialty Diagnoses / Procedures Referred By Contac t Referred To Contact Diagnoses Malignant neoplasm of unspecified part of unspecified bronchus or lung (HCC) Procedures CT SIM PLANNING RADIATION ONCOLOGY THER RAD SIMULAJ-AIDED FIELD SETTING COMPLEX Jyoti Limon MD [address] [facility] [place] [address] Referral ID Status Reason Start Date Expiration Date Visits Requested Visits Authorized [id number] Pending Review PCP Requested Referral 10/21/2022 01/19/2023 1 1 Specialty Diagnoses / Procedures Referred By Contac t Referred To Contact Diagnoses 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) Cancer related pain Procedures CONSULT TO PALLIATIVE CARE OFFICE/OUTPATIENT [facility] 60-74 MINUTES Patricia Miller APRN.FOUNTAIN CLERK [address] [facility] [place] [address] Referral ID Status Reason Start Date Expiration Date Visits Requested Visits Authorized [id number] Authorized PCP Requested Referral 3 05/14/2024 1 1 Specialty Diagnoses / Procedures Referred By Contac t Referred To Contact MR IMAGING Diagnoses Malignant neoplasm of upper lobe of left lung (HCC) Procedures MRI BRAIN WO/W IVCON MRI BRAIN BRAIN STEM W/O W/CONTRAST MATERIAL Renetta Ponce MD [address] [place] [address] [place] [address] Referral ID Status Reason Start Date Expiration Date V isits Requested Visits Authorized [id number] Closed Auto-Generate d Referral 10/26/2021 11/18/2021 1 1 Specialty Diagnoses / Procedures Referred By Contac t Referred To Contact Diagnoses Oropharnyx cancer (HCC) Procedures CT SIM PLANNING RADIATION ONCOLOGY THER RAD SIMULAJ-AIDED FIELD SETTING COMPLEX Jyoti Limon MD [address] [place] [address] [place] [address] Referral ID Status Reason Start Date Expiration Date Visits Requested Visits Authorized [id number] Pending Review PCP Requested Referral 09/08/2023 1 1 Specialty Diagnoses / Procedures Referred By Contac t Referred To Contact CT IMAGING Diagnoses 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) Procedures CT CHEST W IVCON DIAGNOSTIC COMPUTED TOMOGRAPHY THORAX W/CONTRAST Nina Grigsby MD [address] [place] [address] [place] [address] [place] [address] Referral ID Status Reason Start Date Expiration Date V isits Requested Visits Authorized [id number] Closed Auto-Generate d Referral 10/20/2023 11/18/2024 1 1 Specialty Diagnoses / Procedures Referred By Contac t Referred To Contact [facility] Diagnoses Chronic left shoulder pain Procedures CONSULT TO PHYSICAL THERAPY PHYSICAL THERAPY EVALUATION HIGH COMPLEX 45 MINS Estella Fish, TOWER EXCAVATOR OPERATOR.FOUNTAIN CLERK [address] [place] [address] [facility] [place] [address] [place] [address] Referral ID Status Reason Start Date Expiration Date Visits Requested Visits Authorized [id number] Pending Review Auto-Generat ed Referral 11/21/2023 11/20/2024 [...] plus sim IMRT Jyoti Limon MD [address] [facility] [address] [address] [place] [address] Referral ID Status Reason Start Date Expiration Date Visits Requested Visits Authorized [id number] Authorized PCP Requested Referral 12/03/2023 06/03/2024 16 16 Specialty Diagnoses / Procedures Referred By Contac t Referred To Contact Vascular Surgery Diagnoses Left arm swelling Cyanosis of tip of finger Procedures CONSULT TO VASCULAR SURGERY OFFICE/OUTPATIENT [facility] 60 MINUTES Yusef Pandya PA-C [address] [place] [address] [place] [address] Referral ID Status Reason Start Date Expiration Date Visits Requested Visits Authorized [id number] Authorized PCP Requested Referral 02/04/2024 02/03/2025 1 1 Specialty Diagnoses / Procedures Referred By Contac t Referred To Contact Ent - Otolaryngology Diagnoses Abnormal CT scan, neck Sore throat Procedures CONSULT TO ENT OFFICE/OUTPATIENT [facility] 60 MINUTES Yusef Pandya PA-C [address] [place] [address] Referral ID Status Reason Start Date Expiration Date Visits Requested Visits Authorized [id number] Authorized PCP Requested Referral 02/24/2024 02/23/2025 1 [...] and content) DATE CREATED AUTHOR 02/22/2020 [facility] DATE CREATED AUTHOR AUTHOR'S ORGANIZ ATION 10/14/2022 [facility] DATE CREATED AUTHOR AUTHOR'S ORGANIZ ATION 10/25/2022 [facility] DATE CREATED AUTHOR AUTHOR'S ORGANIZ ATION 01/18/2023 [facility] DATE CREATED AUTHOR AUTHOR'S ORGANIZ ATION 03/18/2024 Pranav Berkowitz [facility] DATE CREATED AUTHOR AUTHOR'S ORGANIZ ATION 03/19/[address] [facility] DATE CREATED AUTHOR AUTHOR'S ORGANIZ ATION 03/23/2024 [facility] Source Comments (unrecognize d section and content) In the event this informatio n is protected by the Federal Confidentiality of Alcohol and Drug Abuse Patient Records regulations: The Federal rules restrict any use of the information to criminally investigate or prosecute any alcohol or drug abuse patient.[facility] event this information is protected by the Federal Confidentiality of Alcohol and Drug Abuse Patient Records regulations: The Federal rules restrict any use of the information to criminally investigate or prosecute any alcohol or drug abuse patient.[facility] the event this information is protected by the Federal Confidentiality of Alcohol and Drug Abuse Patient Records regulations: The Federal rules restrict any use of the information to criminally investigate or prosecute any alcohol or drug abuse patient.[facility] the event this information is protected by the Federal Confidentiality of Alcohol and Drug Abuse Patient Records regulations: The Federal rules restrict any use of the information to criminally investigate or prosecute any alcohol or drug abuse patient.[facility] the event this information is protected by the Federal Confidentiality of Alcohol and Drug Abuse Patient Records regulations: The Federal rules restrict any use of the information to criminally investigate or prosecute any alcohol or drug abuse patient.[facility] CenterIn the event this information is protected by the Federal Confidentiality of Alcohol and Drug Abuse Patient Records regulations: The Federal rules restrict any use of the information to criminally investigate or prosecute any alcohol or drug abuse patient.[facility] CenterIn the event this information is protected by the Federal Confidentiality of Alcohol and Drug Abuse Patient Records regulations: The Federal rules restrict any use of the information to criminally investigate or prosecute any alcohol or drug abuse patient.[facility] CenterIn the event this information is protected by the Federal Confidentiality of Alcohol and Drug Abuse Patient Records regulations: The Federal rules restrict any use of the information to criminally investigate or prosecute any alcohol or drug abuse patient.[facility] CenterIn the event this information is protected by the Federal Confidentiality of Alcohol and Drug Abuse Patient Records regulations: The Federal rules restrict any use of the information to criminally investigate or prosecute any alcohol or drug abuse patient.[facility] CenterIn the event this information is protected by the Federal Confidentiality of Alcohol and Drug Abuse Patient Records regulations: The Federal rules restrict any use of the information to criminally investigate or prosecute any alcohol or drug abuse patient.[facility] CenterIn the event this information is protected by the Federal Confidentiality of Alcohol and Drug Abuse Patient Records regulations: The Federal rules restrict any use of the information to criminally investigate or prosecute any alcohol or drug abuse patient.[facility] CenterIn the event this information is protected by the Federal Confidentiality of Alcohol and Drug Abuse Patient Records regulations: The Federal rules restrict any use of the information to criminally investigate or prosecute any alcohol or drug abuse patient.[facility] CenterIn the event this information is protected by the Federal Confidentiality of Alcohol and Drug Abuse Patient Records regulations: The Federal rules restrict any use of the information to criminally investigate or prosecute any alcohol or drug abuse patient.[facility] CenterIn the event this information is protected by the Federal Confidentiality of Alcohol and Drug Abuse Patient Records regulations: The Federal rules restrict any use of the information to criminally investigate or prosecute any alcohol or drug abuse patient.[facility] CenterIn the event this information is protected by the Federal Confidentiality of Alcohol and Drug Abuse Patient Records regulations: The Federal rules restrict any use of the information to criminally investigate or prosecute any alcohol or drug abuse patient.[facility] CenterIn the event this information is protected by the Federal Confidentiality of Alcohol and Drug Abuse Patient Records regulations: The Federal rules restrict any use of the information to criminally investigate or prosecute any alcohol or drug abuse patient.[facility] CenterIn the event this information is protected by the Federal Confidentiality of Alcohol and Drug Abuse Patient Records regulations: The Federal rules restrict any use of the information to criminally investigate or prosecute any alcohol or drug abuse patient.[facility] CenterIn the event this information is protected by the Federal Confidentiality of Alcohol and Drug Abuse Patient Records regulations: The Federal rules restrict any use of the information to criminally investigate or prosecute any alcohol or drug abuse patient.[facility] CenterIn the event this information is protected by the Federal Confidentiality of Alcohol and Drug Abuse Patient Records regulations: The Federal rules restrict any use of the information to criminally investigate or prosecute any alcohol or drug abuse patient.[facility] CenterIn the event this information is protected by the Federal Confidentiality of Alcohol and Drug Abuse Patient Records regulations: The Federal rules restrict any use of the information to criminally investigate or prosecute any alcohol or drug abuse patient.[facility] CenterIn the event this information is protected by the Federal Confidentiality of Alcohol and Drug Abuse Patient Records regulations: The Federal rules restrict any use of the information to criminally investigate or prosecute any alcohol or drug abuse patient.[facility] CenterIn the event this information is protected by the Federal Confidentiality of Alcohol and Drug Abuse Patient Records regulations: The Federal rules restrict any use of the information to criminally investigate or prosecute any alcohol or drug abuse patient.[facility] CenterIn the event this information is protected by the Federal Confidentiality of Alcohol and Drug Abuse Patient Records regulations: The Federal rules restrict any use of the information to criminally investigate or prosecute any alcohol or drug abuse patient.[facility] CenterIn the event this information is protected by the Federal Confidentiality of Alcohol and Drug Abuse Patient Records regulations: The Federal rules restrict any use of the information to criminally investigate or prosecute any alcohol or drug abuse patient.[facility] CenterIn the event this information is protected by the Federal Confidentiality of Alcohol and Drug Abuse Patient Records regulations: The Federal rules restrict any use of the information to criminally investigate or prosecute any alcohol or drug abuse patient.[facility] CenterIn the event this information is protected by the Federal Confidentiality of Alcohol and Drug Abuse Patient Records regulations: The Federal rules restrict any use of the information to criminally investigate or prosecute any alcohol or drug abuse patient.[facility] CenterIn the event this information is protected by the Federal Confidentiality of Alcohol and Drug Abuse Patient Records regulations: The Federal rules restrict any use of the information to criminally investigate or prosecute any alcohol or drug abuse patient.[facility] CenterIn the event this information is protected by the Federal Confidentiality of Alcohol and Drug Abuse Patient Records regulations: The Federal rules restrict any use of the information to criminally investigate or prosecute any alcohol or drug abuse patient.[facility] CenterIn the event this information is protected by the Federal Confidentiality of Alcohol and Drug Abuse Patient Records regulations: The Federal rules restrict any use of the information to criminally investigate or prosecute any alcohol or drug abuse patient.[facility] CenterIn the event this information is protected by the Federal Confidentiality of Alcohol and Drug Abuse Patient Records regulations: The Federal rules restrict any use of the information to criminally investigate or prosecute any alcohol or drug abuse patient.[facility] CenterIn the event this information is protected by the Federal Confidentiality of Alcohol and Drug Abuse Patient Records regulations: The Federal rules restrict any use of the information to criminally investigate or prosecute any alcohol or drug abuse patient.[facility] CenterIn the event this information is protected by the Federal Confidentiality of Alcohol and Drug Abuse Patient Records regulations: The Federal rules restrict any use of the information to criminally investigate or prosecute any alcohol or drug abuse patient.[facility] CenterIn the event this information is protected by the Federal Confidentiality of Alcohol and Drug Abuse Patient Records regulations: The Federal rules restrict any use of the information to criminally investigate or prosecute any alcohol or drug abuse patient.[facility]In the event this information is protected by the Federal Confidentiality of Alcohol and Drug Abuse Patient Records regulations: The Federal rules restrict any use of the information to criminally investigate or prosecute any alcohol or drug abuse patient.[facility] CenterIn the event this information is protected by the Federal Confidentiality of Alcohol and Drug Abuse Patient Records regulations: The Federal rules restrict any use of the information to criminally investigate or prosecute any alcohol or drug abuse patient.[facility]In the event this information is protected by the Federal Confidentiality of Alcohol and Drug Abuse Patient Records regulations: The Federal rules restrict any use of the information to criminally investigate or prosecute any alcohol or drug abuse patient.[facility]In the event this information is protected by the Federal Confidentiality of Alcohol and Drug Abuse Patient Records regulations: The Federal rules restrict any use of the information to criminally investigate or prosecute any alcohol or drug abuse patient.[facility]In the event this information is protected by the Federal Confidentiality of Alcohol and Drug Abuse Patient Records regulations: The Federal rules restrict any use of the information to criminally investigate or prosecute any alcohol or drug abuse patient.[facility]In the event this information is protected by the Federal Confidentiality of Alcohol and Drug Abuse Patient Records regulations: The Federal rules restrict any use of the information to criminally investigate or prosecute any alcohol or drug abuse patient.[facility]In the event this information is protected by the Federal Confidentiality of Alcohol and Drug Abuse Patient Records regulations: The Federal rules restrict any use of the information to criminally investigate or prosecute any alcohol or drug abuse patient.[facility]In the event this information is protected by the Federal Confidentiality of Alcohol and Drug Abuse Patient Records regulations: The Federal rules restrict any use of the information to criminally investigate or prosecute any alcohol or drug abuse patient.[facility]In the event this information is protected by the Federal Confidentiality of Alcohol and Drug Abuse Patient Records regulations: The Federal rules restrict any use of the information to criminally investigate or prosecute any alcohol or drug abuse patient.[facility]In the event this information is protected by the Federal Confidentiality of Alcohol and Drug Abuse Patient Records regulations: The Federal rules restrict any use of the information to criminally investigate or prosecute any alcohol or drug abuse patient.[facility]In the event this information is protected by the Federal Confidentiality of Alcohol and Drug Abuse Patient Records regulations: The Federal rules restrict any use of the information to criminally investigate or prosecute any alcohol or drug abuse patient.[facility]In the event this information is protected by the Federal Confidentiality of Alcohol and Drug Abuse Patient Records regulations: The Federal rules restrict any use of the information to criminally investigate or prosecute any alcohol or drug abuse patient.[facility]In the event this information is protected by the Federal Confidentiality of Alcohol and Drug Abuse Patient Records regulations: The Federal rules restrict any use of the information to criminally investigate or prosecute any alcohol or drug abuse patient.[facility] the event this information is protected by the Federal Confidentiality of Alcohol and Drug Abuse Patient Records regulations: The Federal rules restrict any use of the information to criminally investigate or prosecute any alcohol or drug abuse patient.[facility]In the event this information is protected by the Federal Confidentiality of Alcohol and Drug Abuse Patient Records regulations: The Federal rules restrict any use of the information to criminally investigate or prosecute any alcohol or drug abuse patient.[facility] CenterIn the event this information is [...] or prosecute any alcohol or drug abuse patient.[facility]In the event this information is protected by the Federal Confidentiality of Alcohol and Drug Abuse Patient Records regulations: The Federal rules restrict any use of the information to criminally investigate or prosecute any alcohol or drug abuse patient.[facility]In the event this information is protected by the Federal Confidentiality of Alcohol and Drug Abuse Patient Records regulations: The Federal rules restrict any use of the information to criminally investigate or prosecute any alcohol or drug abuse patient.[facility]In the event this information is protected by the Federal Confidentiality of Alcohol and Drug Abuse Patient Records regulations: The Federal rules restrict any use of the information to criminally investigate or prosecute any alcohol or drug abuse patient.[facility]In the event this information is protected by the Federal Confidentiality of Alcohol and Drug Abuse Patient Records regulations: The Federal rules restrict any use of the information to criminally investigate or prosecute any alcohol or drug abuse patient.[facility]In the event this information is protected by the Federal Confidentiality of Alcohol and Drug Abuse Patient Records regulations: The Federal rules restrict any use of the information to criminally investigate or prosecute any alcohol or drug abuse patient.[facility]In the event this information is protected by the Federal Confidentiality of Alcohol and Drug Abuse Patient Records regulations: The Federal rules restrict any use of the information to criminally investigate or prosecute any alcohol or drug abuse patient.[facility]In the event this information is protected by the Federal Confidentiality of Alcohol and Drug Abuse Patient Records regulations: The Federal rules restrict any use of the information to criminally investigate or prosecute any alcohol or drug abuse patient.[facility]In the event this information is protected by the Federal Confidentiality of Alcohol and Drug Abuse Patient Records regulations: The Federal rules restrict any use of the information to criminally investigate or prosecute any alcohol or drug abuse patient.[facility]In the event this information is protected by the Federal Confidentiality of Alcohol and Drug Abuse Patient Records regulations: The Federal rules restrict any use of the information to criminally investigate or prosecute any alcohol or drug abuse patient.[facility]In the event this information is protected by the Federal Confidentiality of Alcohol and Drug Abuse Patient Records regulations: The Federal rules restrict any use of the information to criminally investigate or prosecute any alcohol or drug abuse patient.[facility]In the event this information is protected by the Federal Confidentiality of Alcohol and Drug Abuse Patient Records regulations: The Federal rules restrict any use of the information to criminally investigate or prosecute any alcohol or drug abuse patient.[facility]In the event this information is protected by the Federal Confidentiality of Alcohol and Drug Abuse Patient Records regulations: The Federal rules restrict any use of the information to criminally investigate or prosecute any alcohol or drug abuse patient.[facility]In the event this information is protected by the Federal Confidentiality of Alcohol and Drug Abuse Patient Records regulations: The Federal rules restrict any use of the information to criminally investigate or prosecute any alcohol or drug abuse patient.[facility]In the event this information is protected by the Federal Confidentiality of Alcohol and Drug Abuse Patient Records regulations: The Federal rules restrict any use of the information to criminally investigate or prosecute any alcohol or drug abuse patient.[facility]In the event this information is protected by the Federal Confidentiality of Alcohol and Drug Abuse Patient Records regulations: The Federal rules restrict any use of the information to criminally investigate or prosecute any alcohol or drug abuse patient.[facility]In the event this information is protected by the Federal Confidentiality of Alcohol and Drug Abuse Patient Records regulations: The Federal rules restrict any use of the information to criminally investigate or prosecute any alcohol or drug abuse patient.[facility]In the event this information is protected by the Federal Confidentiality of Alcohol and Drug Abuse Patient Records regulations: The Federal rules restrict any use of the information to criminally investigate or prosecute any alcohol or drug abuse patient.[facility]In the event this information is protected by the Federal Confidentiality of Alcohol and Drug Abuse Patient Records regulations: The Federal rules restrict any use of the information to criminally investigate or prosecute any alcohol or drug abuse patient.[facility]In the event this information is protected by the Federal Confidentiality of Alcohol and Drug Abuse Patient Records regulations: The Federal rules restrict any use of the information to criminally investigate or prosecute any alcohol or drug abuse patient.[facility]In the event this information is protected by the Federal Confidentiality of Alcohol and Drug Abuse Patient Records regulations: The Federal rules restrict any use of the information to criminally investigate or prosecute any alcohol or drug abuse patient.[facility]In the event this information is protected by the Federal Confidentiality of Alcohol and Drug Abuse Patient Records regulations: The Federal rules restrict any use of the information to criminally investigate or prosecute any alcohol or drug abuse patient.[facility]In the event this information is protected by the Federal Confidentiality of Alcohol and Drug Abuse Patient Records regulations: The Federal rules restrict any use of the information to criminally investigate or prosecute any alcohol or drug abuse patient.[facility]In the event this information is protected by the Federal Confidentiality of Alcohol and Drug Abuse Patient Records regulations: The Federal rules restrict any use of the information to criminally investigate or prosecute any alcohol or drug abuse patient.[facility]In the event this information is protected by the Federal Confidentiality of Alcohol and Drug Abuse Patient Records regulations: The Federal rules restrict any use of the information to criminally investigate or prosecute any alcohol or drug abuse patient.[facility]In the event this information is protected by the Federal Confidentiality of Alcohol and Drug Abuse Patient Records regulations: The Federal rules restrict any use of the information to criminally investigate or prosecute any alcohol or drug abuse patient.[facility]In the event this information is protected by the Federal Confidentiality of Alcohol and Drug Abuse Patient Records regulations: The Federal rules restrict any use of the information to criminally investigate or prosecute any alcohol or drug abuse patient.[facility]In the event this information is protected by the Federal Confidentiality of Alcohol and Drug Abuse Patient Records regulations: The Federal rules restrict any use of the information to criminally investigate or prosecute any alcohol or drug abuse patient.[facility]In the event this information is protected by the Federal Confidentiality of Alcohol and Drug Abuse Patient Records regulations: The Federal rules restrict any use of the information to criminally investigate or prosecute any alcohol or drug abuse patient.[facility]In the event this information is protected by the Federal Confidentiality of Alcohol and Drug Abuse Patient Records regulations: The Federal rules restrict any use of the information to criminally investigate or prosecute any alcohol or drug abuse patient.[facility]In the event this information is protected by the Federal Confidentiality of Alcohol and Drug Abuse Patient Records regulations: The Federal rules restrict any use of the information to criminally investigate or prosecute any alcohol or drug abuse patient.[facility]In the event this information is protected by the Federal Confidentiality of Alcohol and Drug Abuse Patient Records regulations: The Federal rules restrict any use of the information to criminally investigate or prosecute any alcohol or drug abuse patient.[facility]In the event this information is protected by the Federal Confidentiality of Alcohol and Drug Abuse Patient Records regulations: The Federal rules restrict any use of the information to criminally investigate or prosecute any alcohol or drug abuse patient.[facility]In the event this information is protected by the Federal Confidentiality of Alcohol and Drug Abuse Patient Records regulations: The Federal rules restrict any use of the information to criminally investigate or prosecute any alcohol or drug abuse patient.[facility]In the event this information is protected by the Federal Confidentiality of Alcohol and Drug Abuse Patient Records regulations: The Federal rules restrict any use of the information to criminally investigate or prosecute any alcohol or drug abuse patient.[facility]In the event this information is protected by the Federal Confidentiality of Alcohol and Drug Abuse Patient Records regulations: The Federal rules restrict any use of the information to criminally investigate or prosecute any alcohol or drug abuse patient.[facility]In the event this information is protected by the Federal Confidentiality of Alcohol and Drug Abuse Patient Records regulations: The Federal rules restrict any use of the information to criminally investigate or prosecute any alcohol or drug abuse patient.[facility]In the event this information is protected by the Federal Confidentiality of Alcohol and Drug Abuse Patient Records regulations: The Federal rules restrict any use of the information to criminally investigate or prosecute any alcohol or drug abuse patient.[facility]In the event this information is protected by the Federal Confidentiality of Alcohol and Drug Abuse Patient Records regulations: The Federal rules restrict any use of the information to criminally investigate or prosecute any alcohol or drug abuse patient.[facility]In the event this information is protected by the Federal Confidentiality of Alcohol and Drug Abuse Patient Records regulations: The Federal rules restrict any use of the information to criminally investigate or prosecute any alcohol or drug abuse patient.[facility]In the event this information is protected by the Federal Confidentiality of Alcohol and Drug Abuse Patient Records regulations: The Federal rules restrict any use of the information to criminally investigate or prosecute any alcohol or drug abuse patient.[facility]In the event this information is protected by the Federal Confidentiality of Alcohol and Drug Abuse Patient Records regulations: The Federal rules restrict any use of the information to criminally investigate or prosecute any alcohol or drug abuse patient.[facility]In the event this information is protected by the Federal Confidentiality of Alcohol and Drug Abuse Patient Records regulations: The Federal rules restrict any use of the information to criminally investigate or prosecute any alcohol or drug abuse patient.[facility] CenterIn the event this information is protected by the Federal Confidentiality of Alcohol and Drug Abuse Patient Records regulations: The Federal rules restrict any use of the information to criminally investigate or prosecute any alcohol or drug abuse patient.[facility] CenterIn the event this information is protected by the Federal Confidentiality of Alcohol and Drug Abuse Patient Records regulations: The Federal rules restrict any use of the information to criminally investigate or prosecute any alcohol or drug abuse patient.[facility] CenterIn the event this information is protected by the Federal Confidentiality of Alcohol and Drug Abuse Patient Records regulations: The Federal rules restrict any use of the information to criminally investigate or prosecute any alcohol or drug abuse patient.[facility] CenterIn the event this information is protected by the Federal Confidentiality of Alcohol and Drug Abuse Patient Records regulations: The Federal rules restrict any use of the information to criminally investigate or prosecute any alcohol or drug abuse patient.[facility] the event this information is protected by the Federal Confidentiality of Alcohol and Drug Abuse Patient Records regulations: The Federal rules restrict any use of the information to criminally investigate or prosecute any alcohol or drug abuse patient.[facility] CenterIn the event this information is protected by the Federal Confidentiality of Alcohol and Drug Abuse Patient Records regulations: The Federal rules restrict any use of the information to criminally investigate or prosecute any alcohol or drug abuse patient.[facility] CenterIn the event this information is [...] or prosecute any alcohol or drug abuse patient.[facility] CenterIn the event this information is protected by the Federal Confidentiality of Alcohol and Drug Abuse Patient Records regulations: The Federal rules restrict any use of the information to criminally investigate or prosecute any alcohol or drug abuse patient.[facility] CenterIn the event this information is protected by the Federal Confidentiality of Alcohol and Drug Abuse Patient Records regulations: The Federal rules restrict any use of the information to criminally investigate or prosecute any alcohol or drug abuse patient.[facility] CenterIn the event this information is protected by the Federal Confidentiality of Alcohol and Drug Abuse Patient Records regulations: The Federal rules restrict any use of the information to criminally investigate or prosecute any alcohol or drug abuse patient.[facility] CenterIn the event this information is protected by the Federal Confidentiality of Alcohol and Drug Abuse Patient Records regulations: The Federal rules restrict any use of the information to criminally investigate or prosecute any alcohol or drug abuse patient.[facility] CenterIn the event this information is protected by the Federal Confidentiality of Alcohol and Drug Abuse Patient Records regulations: The Federal rules restrict any use of the information to criminally investigate or prosecute any alcohol or drug abuse patient.[facility] CenterIn the event this information is protected by the Federal Confidentiality of Alcohol and Drug Abuse Patient Records regulations: The Federal rules restrict any use of the information to criminally investigate or prosecute any alcohol or drug abuse patient.[facility] CenterIn the event this information is protected by the Federal Confidentiality of Alcohol and Drug Abuse Patient Records regulations: The Federal rules restrict any use of the information to criminally investigate or prosecute any alcohol or drug abuse patient.[facility] CenterIn the event this information is protected by the Federal Confidentiality of Alcohol and Drug Abuse Patient Records regulations: The Federal rules restrict any use of the information to criminally investigate or prosecute any alcohol or drug abuse patient.[facility] CenterIn the event this information is protected by the Federal Confidentiality of Alcohol and Drug Abuse Patient Records regulations: The Federal rules restrict any use of the information to criminally investigate or prosecute any alcohol or drug abuse patient.[facility] CenterIn the event this information is protected by the Federal Confidentiality of Alcohol and Drug Abuse Patient Records regulations: The Federal rules restrict any use of the information to criminally investigate or prosecute any alcohol or drug abuse patient.[facility] CenterIn the event this information is protected by the Federal Confidentiality of Alcohol and Drug Abuse Patient Records regulations: The Federal rules restrict any use of the information to criminally investigate or prosecute any alcohol or drug abuse patient.[facility] CenterIn the event this information is protected by the Federal Confidentiality of Alcohol and Drug Abuse Patient Records regulations: The Federal rules restrict any use of the information to criminally investigate or prosecute any alcohol or drug abuse patient.[facility] CenterIn the event this information is protected by the Federal Confidentiality of Alcohol and Drug Abuse Patient Records regulations: The Federal rules restrict any use of the information to criminally investigate or prosecute any alcohol or drug abuse patient.[facility] CenterIn the event this information is protected by the Federal Confidentiality of Alcohol and Drug Abuse Patient Records regulations: The Federal rules restrict any use of the information to criminally investigate or prosecute any alcohol or drug abuse patient.[facility] CenterIn the event this information is protected by the Federal Confidentiality of Alcohol and Drug Abuse Patient Records regulations: The Federal rules restrict any use of the information to criminally investigate or prosecute any alcohol or drug abuse patient.[facility] CenterIn the event this information is protected by the Federal Confidentiality of Alcohol and Drug Abuse Patient Records regulations: The Federal rules restrict any use of the information to criminally investigate or prosecute any alcohol or drug abuse patient.[facility] CenterIn the event this information is protected by the Federal Confidentiality of Alcohol and Drug Abuse Patient Records regulations: The Federal rules restrict any use of the information to criminally investigate or prosecute any alcohol or drug abuse patient.[facility] CenterIn the event this information is protected by the Federal Confidentiality of Alcohol and Drug Abuse Patient Records regulations: The Federal rules restrict any use of the information to criminally investigate or prosecute any alcohol or drug abuse patient.[facility] CenterIn the event this information is protected by the Federal Confidentiality of Alcohol and Drug Abuse Patient Records regulations: The Federal rules restrict any use of the information to criminally investigate or prosecute any alcohol or drug abuse patient.[facility]In the event this information is protected by the Federal Confidentiality of Alcohol and Drug Abuse Patient Records regulations: The Federal rules restrict any use of the information to criminally investigate or prosecute any alcohol or drug abuse patient.[facility] CenterIn the event this information is protected by the Federal Confidentiality of Alcohol and Drug Abuse Patient Records regulations: The Federal rules restrict any use of the information to criminally investigate or prosecute any alcohol or drug abuse patient.[facility]In the event this information is protected by the Federal Confidentiality of Alcohol and Drug Abuse Patient Records regulations: The Federal rules restrict any use of the information to criminally investigate or prosecute any alcohol or drug abuse patient.[facility]In the event this information is protected by the Federal Confidentiality of Alcohol and Drug Abuse Patient Records regulations: The Federal rules restrict any use of the information to criminally investigate or prosecute any alcohol or drug abuse patient.[facility]In the event this information is protected by the Federal Confidentiality of Alcohol and Drug Abuse Patient Records regulations: The Federal rules restrict any use of the information to criminally investigate or prosecute any alcohol or drug abuse patient.[facility]In the event this information is protected by the Federal Confidentiality of Alcohol and Drug Abuse Patient Records regulations: The Federal rules restrict any use of the information to criminally investigate or prosecute any alcohol or drug abuse patient.[facility]In the event this information is protected by the Federal Confidentiality of Alcohol and Drug Abuse Patient Records regulations: The Federal rules restrict any use of the information to criminally investigate or prosecute any alcohol or drug abuse patient.[facility]In the event this information is protected by the Federal Confidentiality of Alcohol and Drug Abuse Patient Records regulations: The Federal rules restrict any use of the information to criminally investigate or prosecute any alcohol or drug abuse patient.[facility]In the event this information is protected by the Federal Confidentiality of Alcohol and Drug Abuse Patient Records regulations: The Federal rules restrict any use of the information to criminally investigate or prosecute any alcohol or drug abuse patient.[facility]In the event this information is protected by the Federal Confidentiality of Alcohol and Drug Abuse Patient Records regulations: The Federal rules restrict any use of the information to criminally investigate or prosecute any alcohol or drug abuse patient.[facility]In the event this information is protected by the Federal Confidentiality of Alcohol and Drug Abuse Patient Records regulations: The Federal rules restrict any use of the information to criminally investigate or prosecute any alcohol or drug abuse patient.[facility]In the event this information is protected by the Federal Confidentiality of Alcohol and Drug Abuse Patient Records regulations: The Federal rules restrict any use of the information to criminally investigate or prosecute any alcohol or drug abuse patient.[facility]In the event this information is protected by the Federal Confidentiality of Alcohol and Drug Abuse Patient Records regulations: The Federal rules restrict any use of the information to criminally investigate or prosecute any alcohol or drug abuse patient.[facility]In the event this information is protected by the Federal Confidentiality of Alcohol and Drug Abuse Patient Records regulations: The Federal rules restrict any use of the information to criminally investigate or prosecute any alcohol or drug abuse patient.[facility]In the event this information is protected by the Federal Confidentiality of Alcohol and Drug Abuse Patient Records regulations: The Federal rules restrict any use of the information to criminally investigate or prosecute any alcohol or drug abuse patient.[facility]In the event this information is protected by the Federal Confidentiality of Alcohol and Drug Abuse Patient Records regulations: The Federal rules restrict any use of the information to criminally investigate or prosecute any alcohol or drug abuse patient.[facility]In the event this information is protected by the Federal Confidentiality of Alcohol and Drug Abuse Patient Records regulations: The Federal rules restrict any use of the information to criminally investigate or prosecute any alcohol or drug abuse patient.[facility]In the event this information is protected by the Federal Confidentiality of Alcohol and Drug Abuse Patient Records regulations: The Federal rules restrict any use of the information to criminally investigate or prosecute any alcohol or drug abuse patient.[facility]In the event this information is protected by the Federal Confidentiality of Alcohol and Drug Abuse Patient Records regulations: The Federal rules restrict any use of the information to criminally investigate or prosecute any alcohol or drug abuse patient.[facility]In the event this information is protected by the Federal Confidentiality of Alcohol and Drug Abuse Patient Records regulations: The Federal rules restrict any use of the information to criminally investigate or prosecute any alcohol or drug abuse patient.[facility]In the event this information is protected by the Federal Confidentiality of Alcohol and Drug Abuse Patient Records regulations: The Federal rules restrict any use of the information to criminally investigate or prosecute any alcohol or drug abuse patient.[facility]In the event this information is protected by the Federal Confidentiality of Alcohol and Drug Abuse Patient Records regulations: The Federal rules restrict any use of the information to criminally investigate or prosecute any alcohol or drug abuse patient.[facility]In the event this information is protected by the Federal Confidentiality of Alcohol and Drug Abuse Patient Records regulations: The Federal rules restrict any use of the information to criminally investigate or prosecute any alcohol or drug abuse patient.[facility]In the event this information is protected by the Federal Confidentiality of Alcohol and Drug Abuse Patient Records regulations: The Federal rules restrict any use of the information to criminally investigate or prosecute any alcohol or drug abuse patient.[facility]In the event this information is protected by the Federal Confidentiality of Alcohol and Drug Abuse Patient Records regulations: The Federal rules restrict any use of the information to criminally investigate or prosecute any alcohol or drug abuse patient.[facility]In the event this information is protected by the Federal Confidentiality of Alcohol and Drug Abuse Patient Records regulations: The Federal rules restrict any use of the information to criminally investigate or prosecute any alcohol or drug abuse patient.[facility]In the event this information is protected by the Federal Confidentiality of Alcohol and Drug Abuse Patient Records regulations: The Federal rules restrict any use of the information to criminally investigate or prosecute any alcohol or drug abuse patient.[facility] the event this information is protected by the Federal Confidentiality of Alcohol and Drug Abuse Patient Records regulations: The Federal rules restrict any use of the information to criminally investigate or prosecute any alcohol or drug abuse patient.[facility]In the event this information is protected by the Federal Confidentiality of Alcohol and Drug Abuse Patient Records regulations: The Federal rules restrict any use of the information to criminally investigate or prosecute any alcohol or drug abuse patient.[facility] CenterIn the event this information is [...] or prosecute any alcohol or drug abuse patient.[facility]In the event this information is protected by the Federal Confidentiality of Alcohol and Drug Abuse Patient Records regulations: The Federal rules restrict any use of the information to criminally investigate or prosecute any alcohol or drug abuse patient.[facility]In the event this information is protected by the Federal Confidentiality of Alcohol and Drug Abuse Patient Records regulations: The Federal rules restrict any use of the information to criminally investigate or prosecute any alcohol or drug abuse patient.[facility]In the event this information is protected by the Federal Confidentiality of Alcohol and Drug Abuse Patient Records regulations: The Federal rules restrict any use of the information to criminally investigate or prosecute any alcohol or drug abuse patient.[facility]In the event this information is protected by the Federal Confidentiality of Alcohol and Drug Abuse Patient Records regulations: The Federal rules restrict any use of the information to criminally investigate or prosecute any alcohol or drug abuse patient.[facility]In the event this information is protected by the Federal Confidentiality of Alcohol and Drug Abuse Patient Records regulations: The Federal rules restrict any use of the information to criminally investigate or prosecute any alcohol or drug abuse patient.[facility]In the event this information is protected by the Federal Confidentiality of Alcohol and Drug Abuse Patient Records regulations: The Federal rules restrict any use of the information to criminally investigate or prosecute any alcohol or drug abuse patient.[facility]In the event this information is protected by the Federal Confidentiality of Alcohol and Drug Abuse Patient Records regulations: The Federal rules restrict any use of the information to criminally investigate or prosecute any alcohol or drug abuse patient.[facility]In the event this information is protected by the Federal Confidentiality of Alcohol and Drug Abuse Patient Records regulations: The Federal rules restrict any use of the information to criminally investigate or prosecute any alcohol or drug abuse patient.[facility]In the event this information is protected by the Federal Confidentiality of Alcohol and Drug Abuse Patient Records regulations: The Federal rules restrict any use of the information to criminally investigate or prosecute any alcohol or drug abuse patient.[facility]In the event this information is protected by the Federal Confidentiality of Alcohol and Drug Abuse Patient Records regulations: The Federal rules restrict any use of the information to criminally investigate or prosecute any alcohol or drug abuse patient.[facility]In the event this information is protected by the Federal Confidentiality of Alcohol and Drug Abuse Patient Records regulations: The Federal rules restrict any use of the information to criminally investigate or prosecute any alcohol or drug abuse patient.[facility]In the event this information is protected by the Federal Confidentiality of Alcohol and Drug Abuse Patient Records regulations: The Federal rules restrict any use of the information to criminally investigate or prosecute any alcohol or drug abuse patient.[facility]In the event this information is protected by the Federal Confidentiality of Alcohol and Drug Abuse Patient Records regulations: The Federal rules restrict any use of the information to criminally investigate or prosecute any alcohol or drug abuse patient.[facility]In the event this information is protected by the Federal Confidentiality of Alcohol and Drug Abuse Patient Records regulations: The Federal rules restrict any use of the information to criminally investigate or prosecute any alcohol or drug abuse patient.[facility]In the event this information is protected by the Federal Confidentiality of Alcohol and Drug Abuse Patient Records regulations: The Federal rules restrict any use of the information to criminally investigate or prosecute any alcohol or drug abuse patient.[facility]In the event this information is protected by the Federal Confidentiality of Alcohol and Drug Abuse Patient Records regulations: The Federal rules restrict any use of the information to criminally investigate or prosecute any alcohol or drug abuse patient.[facility]In the event this information is protected by the Federal Confidentiality of Alcohol and Drug Abuse Patient Records regulations: The Federal rules restrict any use of the information to criminally investigate or prosecute any alcohol or drug abuse patient.[facility]In the event this information is protected by the Federal Confidentiality of Alcohol and Drug Abuse Patient Records regulations: The Federal rules restrict any use of the information to criminally investigate or prosecute any alcohol or drug abuse patient.[facility]In the event this information is protected by the Federal Confidentiality of Alcohol and Drug Abuse Patient Records regulations: The Federal rules restrict any use of the information to criminally investigate or prosecute any alcohol or drug abuse patient.[facility]In the event this information is protected by the Federal Confidentiality of Alcohol and Drug Abuse Patient Records regulations: The Federal rules restrict any use of the information to criminally investigate or prosecute any alcohol or drug abuse patient.[facility]In the event this information is protected by the Federal Confidentiality of Alcohol and Drug Abuse Patient Records regulations: The Federal rules restrict any use of the information to criminally investigate or prosecute any alcohol or drug abuse patient.[facility]In the event this information is protected by the Federal Confidentiality of Alcohol and Drug Abuse Patient Records regulations: The Federal rules restrict any use of the information to criminally investigate or prosecute any alcohol or drug abuse patient.[facility]In the event this information is protected by the Federal Confidentiality of Alcohol and Drug Abuse Patient Records regulations: The Federal rules restrict any use of the information to criminally investigate or prosecute any alcohol or drug abuse patient.[facility]In the event this information is protected by the Federal Confidentiality of Alcohol and Drug Abuse Patient Records regulations: The Federal rules restrict any use of the information to criminally investigate or prosecute any alcohol or drug abuse patient.[facility]In the event this information is protected by the Federal Confidentiality of Alcohol and Drug Abuse Patient Records regulations: The Federal rules restrict any use of the information to criminally investigate or prosecute any alcohol or drug abuse patient.[facility]In the event this information is protected by the Federal Confidentiality of Alcohol and Drug Abuse Patient Records regulations: The Federal rules restrict any use of the information to criminally investigate or prosecute any alcohol or drug abuse patient.[facility]In the event this information is protected by the Federal Confidentiality of Alcohol and Drug Abuse Patient Records regulations: The Federal rules restrict any use of the information to criminally investigate or prosecute any alcohol or drug abuse patient.[facility]In the event this information is protected by the Federal Confidentiality of Alcohol and Drug Abuse Patient Records regulations: The Federal rules restrict any use of the information to criminally investigate or prosecute any alcohol or drug abuse patient.[facility]In the event this information is protected by the Federal Confidentiality of Alcohol and Drug Abuse Patient Records regulations: The Federal rules restrict any use of the information to criminally investigate or prosecute any alcohol or drug abuse patient.[facility]In the event this information is protected by the Federal Confidentiality of Alcohol and Drug Abuse Patient Records regulations: The Federal rules restrict any use of the information to criminally investigate or prosecute any alcohol or drug abuse patient.[facility]In the event this information is protected by the Federal Confidentiality of Alcohol and Drug Abuse Patient Records regulations: The Federal rules restrict any use of the information to criminally investigate or prosecute any alcohol or drug abuse patient.[facility] CenterIn the event this information is protected by the Federal Confidentiality of Alcohol and Drug Abuse Patient Records regulations: The Federal rules restrict any use of the information to criminally investigate or prosecute any alcohol or drug abuse patient.[facility] CenterIn the event this information is protected by the Federal Confidentiality of Alcohol and Drug Abuse Patient Records regulations: The Federal rules restrict any use of the information to criminally investigate or prosecute any alcohol or drug abuse patient.[facility] CenterIn the event this information is protected by the Federal Confidentiality of Alcohol and Drug Abuse Patient Records regulations: The Federal rules restrict any use of the information to criminally investigate or prosecute any alcohol or drug abuse patient.[facility] CenterIn the event this information is protected by the Federal Confidentiality of Alcohol and Drug Abuse Patient Records regulations: The Federal rules restrict any use of the information to criminally investigate or prosecute any alcohol or drug abuse patient.[facility] CenterIn the event this information is protected by the Federal Confidentiality of Alcohol and Drug Abuse Patient Records regulations: The Federal rules restrict any use of the information to criminally investigate or prosecute any alcohol or drug abuse patient.[facility] CenterIn the event this information is protected by the Federal Confidentiality of Alcohol and Drug Abuse Patient Records regulations: The Federal rules restrict any use of the information to criminally investigate or prosecute any alcohol or drug abuse patient.[facility] CenterIn the event this information is protected by the Federal Confidentiality of Alcohol and Drug Abuse Patient Records regulations: The Federal rules restrict any use of the information to criminally investigate or prosecute any alcohol or drug abuse patient.[facility] CenterIn the event this information is protected by the Federal Confidentiality of Alcohol and Drug Abuse Patient Records regulations: The Federal rules restrict any use of the information to criminally investigate or prosecute any alcohol or drug abuse patient.[facility] CenterIn the event this information is protected by the Federal Confidentiality of Alcohol and Drug Abuse Patient Records regulations: The Federal rules restrict any use of the information to criminally investigate or prosecute any alcohol or drug abuse patient.[facility] CenterIn the event this information is protected by the Federal Confidentiality of Alcohol and Drug Abuse Patient Records regulations: The Federal rules restrict any use of the information to criminally investigate or prosecute any alcohol or drug abuse patient.[facility] CenterIn the event this information is protected by the Federal Confidentiality of Alcohol and Drug Abuse Patient Records regulations: The Federal rules restrict any use of the information to criminally investigate or prosecute any alcohol or drug abuse patient.[facility] CenterIn the event this information is protected by the Federal Confidentiality of Alcohol and Drug Abuse Patient Records regulations: The Federal rules restrict any use of the information to criminally investigate or prosecute any alcohol or drug abuse patient.[facility] CenterIn the event this information is protected by the Federal Confidentiality of Alcohol and Drug Abuse Patient Records regulations: The Federal rules restrict any use of the information to criminally investigate or prosecute any alcohol or drug abuse patient.[facility] CenterIn the event this information is protected by the Federal Confidentiality of Alcohol and Drug Abuse Patient Records regulations: The Federal rules restrict any use of the information to criminally investigate or prosecute any alcohol or drug abuse patient.[facility] CenterIn the event this information is protected by the Federal Confidentiality of Alcohol and Drug Abuse Patient Records regulations: The Federal rules restrict any use of the information to criminally investigate or prosecute any alcohol or drug abuse patient.[facility] the event this information is protected by the Federal Confidentiality of Alcohol and Drug Abuse Patient Records regulations: The Federal rules restrict any use of the information to criminally investigate or prosecute any alcohol or drug abuse patient.[facility] CenterIn the event this information is protected by the Federal Confidentiality of Alcohol and Drug Abuse Patient Records regulations: The Federal rules restrict any use of the information to criminally investigate or prosecute any alcohol or drug abuse patient.[facility] CenterIn the event this information is [...] or prosecute any alcohol or drug abuse patient.[facility] CenterIn the event this information is protected by the Federal Confidentiality of Alcohol and Drug Abuse Patient Records regulations: The Federal rules restrict any use of the information to criminally investigate or prosecute any alcohol or drug abuse patient.[facility] CenterIn the event this information is protected by the Federal Confidentiality of Alcohol and Drug Abuse Patient Records regulations: The Federal rules restrict any use of the information to criminally investigate or prosecute any alcohol or drug abuse patient.[facility] CenterIn the event this information is protected by the Federal Confidentiality of Alcohol and Drug Abuse Patient Records regulations: The Federal rules restrict any use of the information to criminally investigate or prosecute any alcohol or drug abuse patient.[facility] CenterIn the event this information is protected by the Federal Confidentiality of Alcohol and Drug Abuse Patient Records regulations: The Federal rules restrict any use of the information to criminally investigate or prosecute any alcohol or drug abuse patient.[facility] CenterIn the event this information is protected by the Federal Confidentiality of Alcohol and Drug Abuse Patient Records regulations: The Federal rules restrict any use of the information to criminally investigate or prosecute any alcohol or drug abuse patient.[facility] CenterIn the event this information is protected by the Federal Confidentiality of Alcohol and Drug Abuse Patient Records regulations: The Federal rules restrict any use of the information to criminally investigate or prosecute any alcohol or drug abuse patient.[facility] CenterIn the event this information is protected by the Federal Confidentiality of Alcohol and Drug Abuse Patient Records regulations: The Federal rules restrict any use of the information to criminally investigate or prosecute any alcohol or drug abuse patient.[facility] CenterIn the event this information is protected by the Federal Confidentiality of Alcohol and Drug Abuse Patient Records regulations: The Federal rules restrict any use of the information to criminally investigate or prosecute any alcohol or drug abuse patient.[facility] CenterIn the event this information is protected by the Federal Confidentiality of Alcohol and Drug Abuse Patient Records regulations: The Federal rules restrict any use of the information to criminally investigate or prosecute any alcohol or drug abuse patient.[facility] CenterIn the event this information is protected by the Federal Confidentiality of Alcohol and Drug Abuse Patient Records regulations: The Federal rules restrict any use of the information to criminally investigate or prosecute any alcohol or drug abuse patient.[facility] CenterIn the event this information is protected by the Federal Confidentiality of Alcohol and Drug Abuse Patient Records regulations: The Federal rules restrict any use of the information to criminally investigate or prosecute any alcohol or drug abuse patient.[facility] CenterIn the event this information is protected by the Federal Confidentiality of Alcohol and Drug Abuse Patient Records regulations: The Federal rules restrict any use of the information to criminally investigate or prosecute any alcohol or drug abuse patient.[facility] CenterIn the event this information is protected by the Federal Confidentiality of Alcohol and Drug Abuse Patient Records regulations: The Federal rules restrict any use of the information to criminally investigate or prosecute any alcohol or drug abuse patient.[facility] CenterIn the event this information is protected by the Federal Confidentiality of Alcohol and Drug Abuse Patient Records regulations: The Federal rules restrict any use of the information to criminally investigate or prosecute any alcohol or drug abuse patient.[facility] CenterIn the event this information is protected by the Federal Confidentiality of Alcohol and Drug Abuse Patient Records regulations: The Federal rules restrict any use of the information to criminally investigate or prosecute any alcohol or drug abuse patient.[facility] CenterIn the event this information is protected by the Federal Confidentiality of Alcohol and Drug Abuse Patient Records regulations: The Federal rules restrict any use of the information to criminally investigate or prosecute any alcohol or drug abuse patient.[facility] CenterIn the event this information is protected by the Federal Confidentiality of Alcohol and Drug Abuse Patient Records regulations: The Federal rules restrict any use of the information to criminally investigate or prosecute any alcohol or drug abuse patient.[facility] CenterIn the event this information is protected by the Federal Confidentiality of Alcohol and Drug Abuse Patient Records regulations: The Federal rules restrict any use of the information to criminally investigate or prosecute any alcohol or drug abuse patient.[facility] CenterIn the event this information is protected by the Federal Confidentiality of Alcohol and Drug Abuse Patient Records regulations: The Federal rules restrict any use of the information to criminally investigate or prosecute any alcohol or drug abuse patient.[facility] CenterIn the event this information is protected by the Federal Confidentiality of Alcohol and Drug Abuse Patient Records regulations: The Federal rules restrict any use of the information to criminally investigate or prosecute any alcohol or drug abuse patient.[facility] CenterIn the event this information is protected by the Federal Confidentiality of Alcohol and Drug Abuse Patient Records regulations: The Federal rules restrict any use of the information to criminally investigate or prosecute any alcohol or drug abuse patient.[facility] CenterIn the event this information is protected by the Federal Confidentiality of Alcohol and Drug Abuse Patient Records regulations: The Federal rules restrict any use of the information to criminally investigate or prosecute any alcohol or drug abuse patient.[facility] CenterIn the event this information is protected by the Federal Confidentiality of Alcohol and Drug Abuse Patient Records regulations: The Federal rules restrict any use of the information to criminally investigate or prosecute any alcohol or drug abuse patient.[facility] Care Teams (unrecognized sec tion and content) Drapery Seamstress Relationship Specialty Start Date End Date Christina Azul MD [address] [place] [address] PCP - General Family Practice 07/03/21 Sofie Diana MD [address] [place], [place] [id number] Primary Staff Physician Cardiology 07/03/21 Verito Whelan MD [address] [place] [address] Referring Pulmonary Disease 10/04/21 Drapery Seamstress Relationship Specialty Start Date End Date Christina Azul MD [address] [place] [place] [id number] PCP - General Family Practice 07/03/21 Sofie Diana MD [address] [place] [address] Primary Staff Physician Cardiology 07/03/21 Verito Whelan MD [address] [place], [place] [id number] Referring Pulmonary Disease 10/04/21 Drapery Seamstress Relationship Specialty Start Date End Date Christina Azul MD [address] [place] [id number] PCP - General Family Practice 07/03/21 Sofie Diana MD [address] [place] [address] Primary Staff Physician Cardiology 07/03/21 Verito Whelan MD [address] [place] [address] Referring Pulmonary Disease 10/04/21 Drapery Seamstress Relationship Specialty Start Date End Date Christina Azul MD [address] [place], [place] [id number] PCP - [facility] Practice 07/03/21 Sofie Diana MD [address] [place] [address] Primary Staff Physician Cardiology 07/03/21 Verito Whelan MD [address] [place] [address] Referring Pulmonary Disease 10/04/21 Nina Grigsby MD [address] [facility] [place] [address] Physician Hematology/Oncology 10/25/21 Patricia Miller, OZZIE.FOUNTAIN CLERK [address] [facility] [place] [address] Nurse Practitioner Hematology/Oncology 10/25/21 Denita Rai, KERRY [address] [facility] [place] [address] Specialty Structural Draftsman Hematology/Oncology 10/25/21 Drapery Seamstress Relationship Specialty Start Date End Date Christina Azul MD [address] [place] [address] PCP - General Family Practice 07/03/21 Sofie Diana MD [address] [place] [address] Primary Staff Physician Cardiology 07/03/21 Verito Whelan MD [address] [place] [address] Referring Pulmonary Disease 10/04/21 Nina Grigsby MD [address] [facility] [place] [address] Physician Hematology/Oncology 10/25/21 Patricia Miller, TOWER EXCAVATOR OPERATOR.FOUNTAIN CLERK [address] [facility] [place] [address] Nurse Practitioner Hematology/Oncology 10/25/21 Denita Rai, KERRY [address] [facility] [place] [address] Specialty Structural Draftsman Hematology/Oncology 10/25/21 Drapery Seamstress Relationship Specialty Start Date End Date Christina Azul MD [address] [place] [place] [id number] PCP - General Family Practice 07/03/21 Sofie Diana MD [address] [place] [address] Primary Staff Physician Cardiology 07/03/21 Verito Whelan MD [address] [place] [address] Referring Pulmonary Disease 10/04/21 Drapery Seamstress Relationship Specialty Start Date End Date Christina Azul MD [address] [place] [address] PCP - General Family Practice 07/03/21 Sofie Diana MD [address] [place] [address] Primary Staff Physician Cardiology 07/03/21 Verito Whelan MD [address] [place] [address] Referring Pulmonary Disease 10/04/21 Nina Grigsby MD [address] [facility] [place] [address] Physician Hematology/Oncology 10/25/21 Patricia Miller, TOWER EXCAVATOR OPERATOR.FOUNTAIN CLERK [address] [facility] [place] [address] Nurse Practitioner Hematology/Oncology 10/25/21 Denita Rai, RN [address] [facility] [place] [address] Specialty Structural Draftsman Hematology/Oncology 10/25/21 Drapery Seamstress Relationship Specialty Start Date End Date Christina Azul MD [address] [place] [address] PCP - General Family Practice 07/03/21 Sofie Diana MD [address] [place] [address] Primary Staff Physician Cardiology 07/03/21 Verito Whelan MD [address] [place] [address] Referring Pulmonary Disease 10/04/21 Nina Grigsby MD [address] [facility] [place] [address] Physician Hematology/Oncology 10/25/21 Patricia Miller, TOWER EXCAVATOR OPERATOR.FOUNTAIN CLERK [address] [facility] [place] [address] Nurse Practitioner Hematology/Oncology 10/25/21 Denita Rai, RN [address] [facility] [place] [address] Specialty Structural Draftsman Hematology/Oncology 10/25/21 Drapery Seamstress Relationship Specialty Start Date End Date Christina Azul MD [address] [place] [address] PCP - General Family Practice 07/03/21 Sofie Diana MD [address] [place] [address] Primary Staff Physician Cardiology 07/03/21 Verito Whelan MD [address] [place] [address] Referring Pulmonary Disease 10/04/21 Nina Grigsby MD [address] [facility] [place] [address] Physician Hematology/Oncology 10/25/21 Patricia Miller, OZZIE.FOUNTAIN CLERK [address] [facility] [place] [address] Nurse Practitioner Hematology/Oncology 10/25/21 Denita Rai, RN [address] [facility] [place] [address] Specialty Structural Draftsman Hematology/Oncology 10/25/21 Drapery Seamstress Relationship Specialty Start Date End Date Christina Azul MD [address] [place] [address] PCP - General Family Practice 07/03/21 Sofie Diana MD [address] [place] [address] Primary Staff Physician Cardiology 07/03/21 Verito Whelan MD [address] [place] [address] Referring Pulmonary Disease 10/04/21 Nina Grigsby MD [address] [facility] [place] [address] Physician Hematology/Oncology 10/25/21 Patricia Miller, TOWER EXCAVATOR OPERATOR.FOUNTAIN CLERK [address] [facility] [place] [address] Nurse Practitioner Hematology/Oncology 10/25/21 Denita Rai, KERRY [address] [facility] [place] [address] Specialty Structural Draftsman Hematology/Oncology 10/25/21 Drapery Seamstress Relationship Specialty Start Date End Date Christina Azul MD [address] [place] [address] PCP - General Family Practice 07/03/21 Sofie Diana MD [address] [place] [address] Primary Staff Physician Cardiology 07/03/21 Verito Whelan MD [address] [place] [address] Referring Pulmonary Disease 10/04/21 Nina Grigsby MD [address] [facility] [place] [address] Physician Hematology/Oncology 10/25/21 Patricia Miller, TOWER EXCAVATOR OPERATOR.FOUNTAIN CLERK [address] [facility] [place] [address] Nurse Practitioner Hematology/Oncology 10/25/21 Denita Rai, KERRY [address] [facility] [place] [address] Specialty Structural Draftsman Hematology/Oncology 10/25/21 Drapery Seamstress Relationship Specialty Start Date End Date Christina Azul MD [address] [place], [place] [id number] PCP - General [facility] Practice 07/03/21 Sofie Diana MD [address] [place] [address] Primary Staff Physician Cardiology 07/03/21 Verito Whelan MD [address] [place] [address] Referring Pulmonary Disease 10/04/21 Nina Grigsby MD [address] [place] [address] [place] [address] Physician Hematology/Oncology 10/25/21 Patricia Miller, OZZIE.FOUNTAIN CLERK [address] [facility] [place] [address] Nurse Practitioner Hematology/Oncology 10/25/21 Denita Rai, RN [address] [facility] [place] [address] Specialty Structural Draftsman Hematology/Oncology 10/25/21 Drapery Seamstress Relationship Specialty Start Date End Date Christina Azul MD [address] [place] [id number] PCP - General [facility] Practice 07/03/21 Sofie Diana MD [address] [place] [address] Primary Staff Physician Cardiology 07/03/21 Verito Whelan MD [address] [place] [address] Referring Pulmonary Disease 10/04/21 Nina Grigsby MD [address] [facility] [address] Physician Hematology/Oncology 10/25/21 Patricia Miller, TOWER EXCAVATOR OPERATOR.[address] [place] [address] Nurse Practitioner Hematology/Oncology 10/25/21 Denita Rai, KERRY [address] [place] [address] [place] [address] Specialty Structural Draftsman Hematology/Oncology 10/25/21 Drapery Seamstress Relationship Specialty Start Date End Date Christina Azul MD [address] [place] [address] PCP - General Family Practice 07/03/21 Sofie Diana MD [address] [place] [address] Primary Staff Physician Cardiology 07/03/21 Verito Whelan MD [address] [place] [address] Referring Pulmonary Disease 10/04/21 Nina Grigsby MD [address] [place] [address] [place] [address] Physician Hematology/Oncology 10/25/21 Patricia Miller, TOWER EXCAVATOR OPERATOR.[address] [place] [address] Nurse Practitioner Hematology/Oncology 10/25/21 Denita Rai, KERRY [address] [place] [address] [place] [address] Specialty Structural Draftsman Hematology/Oncology 10/25/21 Drapery Seamstress Relationship Specialty Start Date End Date Christina Azul MD [address] [place] [address] PCP - General Family Practice 07/03/21 Sofie Diana MD [address] [place], [place] [address] Primary Staff Physician Cardiology 07/03/21 Verito Whelan MD [address] [place], [place] [address] Referring Pulmonary Disease 10/04/21 Nina Grigsby MD [address] [facility] [address] Physician Hematology/Oncology 10/25/21 Patricia Miller, TOWER EXCAVATOR OPERATOR.FOUNTAIN CLERK [address] [facility] [place] [address] Nurse Practitioner Hematology/Oncology 10/25/21 Denita Rai, KERRY [address] [facility] [place] [address] Specialty Structural Draftsman Hematology/Oncology 10/25/21 Drapery Seamstress Relationship Specialty Start Date End Date Christina Azul MD [address] [place] [address] PCP - General Family Practice 07/03/21 Sofie Diana MD [address] [place] [address] Primary Staff Physician Cardiology 07/03/21 Verito Whelan MD [address] [place] [address] Referring Pulmonary Disease 10/04/21 Nina Grigsby MD [address] [facility] [address] Physician Hematology/Oncology 10/25/21 Patricia Miller, TOWER EXCAVATOR OPERATOR.FOUNTAIN CLERK [address] [facility] [place] [address] Nurse Practitioner Hematology/Oncology 10/25/21 Denita Rai, RN [address] [facility] [place] [address] Specialty Structural Draftsman Hematology/Oncology 10/25/21 Drapery Seamstress Relationship Specialty Start Date End Date Christina Azul MD [address] [place] [address] PCP - General Family Practice 07/03/21 Sofie Diana MD [address] [place], [place] [address] Primary Staff Physician Cardiology 07/03/21 Verito Whelan MD [address] [place] [address] Referring Pulmonary Disease 10/04/21 Nina Grigsby MD [address] [facility] [place] [address] Physician Hematology/Oncology 10/25/21 Patricia Miller, OZZIE.[facility] [address] [facility] [place] [address] Nurse Practitioner Hematology/Oncology 10/25/21 Denita Rai, RN [address] [place] [address] [place] [address] Specialty Structural Draftsman Hematology/Oncology 10/25/21 Drapery Seamstress Relationship Specialty Start Date End Date Christina Azul MD [address] [place] [place] [id number] PCP - General Family Practice 07/03/21 Sofie Diana MD [address] [place] [address] Primary Staff Physician Cardiology 07/03/21 Verito Whelan MD [address] [place] [address] Referring Pulmonary Disease 10/04/21 Nina Grigsby MD [address] [facility] [place] [address] Physician Hematology/Oncology 10/25/21 Patricia Miller, TOWER EXCAVATOR OPERATOR.FOUNTAIN CLERK [address] [facility] [place] [address] Nurse Practitioner Hematology/Oncology 10/25/21 Denita Rai, KERRY [address] [place] [address] [place] [address] Specialty Structural Draftsman Hematology/Oncology 10/25/21 Drapery Seamstress Relationship Specialty Start Date End Date Christina Azul MD [address] [place] [address] PCP - General Family Practice 07/03/21 Sofie Diana MD [address] [place] [address] Primary Staff Physician Cardiology 07/03/21 Verito Whelan MD [address] [place] [address] Referring Pulmonary Disease 10/04/21 Nina Grigsby MD [address] [facility] [place] [address] Physician Hematology/Oncology 10/25/21 Patricia Miller, TOWER EXCAVATOR OPERATOR.FOUNTAIN CLERK [address] [facility] [place] [address] Nurse Practitioner Hematology/Oncology 10/25/21 Denita Rai, RN [address] [facility] [place] [address] Specialty Structural Draftsman Hematology/Oncology 10/25/21 Drapery Seamstress Relationship Specialty Start Date End Date Christina Azul MD [address] [place] [address] PCP - General Family Practice 07/03/21 Sofie Diana MD [address] [place] [address] Primary Staff Physician Cardiology 07/03/21 Verito Whelan MD [address] [place], [place] [id number] Referring Pulmonary Disease 10/04/21 Nina Grigsby MD [address] [facility] [address] [place] [address] Physician Hematology/Oncology 10/25/21 Patricia Miller, TOWER EXCAVATOR OPERATOR.FOUNTAIN CLERK [address] [facility] [place] [address] Nurse Practitioner Hematology/Oncology 10/25/21 Denita Rai, RN [address] [facility] [place] [address] Specialty Structural Draftsman Hematology/Oncology 10/25/21 Drapery Seamstress Relationship Specialty Start Date End Date Christina Azul MD [address] [place] [address] PCP - General Family Practice 07/03/21 Sofie Diana MD [address] [place] [address] Primary Staff Physician Cardiology 07/03/21 Verito Whelan MD [address] [place] [address] Referring Pulmonary Disease 10/04/21 Nina Grigsby MD [address] [facility] [place] [address] Physician Hematology/Oncology 10/25/21 Patricia Miller, TOWER EXCAVATOR OPERATOR.FOUNTAIN CLERK [address] [facility] [place] [address] Nurse Practitioner Hematology/Oncology 10/25/21 Denita Rai, KERRY [address] [facility] [place] [address] Specialty Structural Draftsman Hematology/Oncology 10/25/21 Drapery Seamstress Relationship Specialty Start Date End Date Christina Azul MD [address] [place] [address] PCP - General Family Practice 07/03/21 Sofie Diana MD [address] [place] [address] Primary Staff Physician Cardiology 07/03/21 Verito Whelan MD [address] [place] [address] Referring Pulmonary Disease 10/04/21 Nina Grigsby MD [address] [facility] [place] [address] Physician Hematology/Oncology 10/25/21 Patricia Miller, TOWER EXCAVATOR OPERATOR.FOUNTAIN CLERK [address] [facility] [place] [address] Nurse Practitioner Hematology/Oncology 10/25/21 Denita Rai, RN [address] [facility] [place] [address] Specialty Structural Draftsman Hematology/Oncology 10/25/21 Drapery Seamstress Relationship Specialty Start Date End Date Christina Azul MD [address] [place] [address] PCP - General [facility] Practice 07/03/21 Sofie Diana MD [address] [place] [address] Primary Staff Physician Cardiology 07/03/21 Verito Whelan MD [address] [place] [address] Referring Pulmonary Disease 10/04/21 Nina Grigsby MD [address] [facility] [place] [address] Physician Hematology/Oncology 10/25/21 Patricia Miller APRN.FOUNTAIN CLERK [address] [facility] [address] Nurse Practitioner Hematology/Oncology 10/25/21 Denita Rai, RN [address] [facility] [place] [address] Specialty Structural Draftsman Hematology/Oncology 10/25/21 Drapery Seamstress Relationship Specialty Start Date End Date Christina Azul MD [address] [place] [id number] PCP - General Family Practice 07/03/21 Sofie Diana MD [address] [place] [address] Primary Staff Physician Cardiology 07/03/21 Verito Whelan MD [address] [place] [address] Referring Pulmonary Disease 10/04/21 Nina Grigsby MD [address] [facility] [place] [address] Physician Hematology/Oncology 10/25/21 Patricia Miller, TOWER EXCAVATOR OPERATOR.FOUNTAIN CLERK [address] [facility] [place] [address] Nurse Practitioner Hematology/Oncology 10/25/21 Denita Rai, RN [address] [facility] [place] [address] Specialty Structural Draftsman Hematology/Oncology 10/25/21 Drapery Seamstress Relationship Specialty Start Date End Date Christina Azul MD [address] [place] [address] PCP - General Family Practice 07/03/21 Sofie Diana MD [address] [place] [address] Primary Staff Physician Cardiology 07/03/21 Verito Whelan MD [address] [place] [address] Referring Pulmonary Disease 10/04/21 Nina Grigsby MD [address] [facility] [place] [address] Physician Hematology/Oncology 10/25/21 Patricia Miller, TOWER EXCAVATOR OPERATOR.FOUNTAIN CLERK [address] [facility] [place] [address] Nurse Practitioner Hematology/Oncology 10/25/21 Denita Rai, KERRY [address] [facility] [place] [address] Specialty Structural Draftsman Hematology/Oncology 10/25/21 Drapery Seamstress Relationship Specialty Start Date End Date Christina Azul MD [address] [place] [address] PCP - General Family Practice 07/03/21 Sofie Diana MD [address] [place] [address] Primary Staff Physician Cardiology 07/03/21 Verito Whelan MD [address] [place] [address] Referring Pulmonary Disease 10/04/21 Nina Grigsby MD [address] [facility] [place] [address] Physician Hematology/Oncology 10/25/21 Patricia Miller, TOWER EXCAVATOR OPERATOR.FOUNTAIN CLERK [address] [facility] [place] [address] Nurse Practitioner Hematology/Oncology 10/25/21 Denita Rai, KERRY [address] [facility] [place] [address] Specialty Structural Draftsman Hematology/Oncology 10/25/21 Drapery Seamstress Relationship Specialty Start Date End Date Christina Azul MD [address] [place] [address] PCP - [facility] Practice 07/03/21 Sofie Diana MD [address] [place] [address] Primary Staff Physician Cardiology 07/03/21 Verito Whelan MD [address] [place] [address] Referring Pulmonary Disease 10/04/21 Nina Grigsby MD [address] [facility] [place] [address] Physician Hematology/Oncology 10/25/21 Patricia Miller, TOWER EXCAVATOR OPERATOR.FOUNTAIN CLERK [address] [facility] [place] [address] Nurse Practitioner Hematology/Oncology 10/25/21 Denita Rai, KERRY [address] [place] [address] [place] [address] Specialty Structural Draftsman Hematology/Oncology 10/25/21 Team Status: Inactive Member Role Status Dates Cristy Swann PA-C Attending Provider Active PHYSICIAN NO FAMILY Primary Care Provider Active Team Status: Active Member Role Status Dates PHYSICIAN NO FAMILY Primary Care Provider Active Drapery Seamstress Relationship Specialty Start Date End Date Christina Azul MD [address] [place] [address] PCP - General [facility] Practice 07/03/21 Sofie Diana MD [address] [place] [address] Primary Staff Physician Cardiology 07/03/21 Verito Whelan MD [address] [place] [address] Referring Pulmonary Disease 10/04/21 Nina Grigsby MD [address] [facility] [place] [address] Physician Hematology/Oncology 10/25/21 Patricia Miller, OZZIE.FOUNTAIN CLERK [address] [facility] [place] [address] Nurse Practitioner Hematology/Oncology 10/25/21 Denita Rai, KERRY [address] [place] [address] [place] [address] Specialty Structural Draftsman Hematology/Oncology 10/25/21 Drapery Seamstress Relationship Specialty Start Date End Date Christina Azul MD [address] [place] [address] PCP - General Family Practice 07/03/21 Sofie Diana MD [address] [place] [address] Primary Staff Physician Cardiology 07/03/21 Verito Whelan MD [address] [place] [address] Referring Pulmonary Disease 10/04/21 Nina Grigsby MD [address] [facility] [place] [address] Physician Hematology/Oncology 10/25/21 Patricia Miller, TOWER EXCAVATOR OPERATOR.FOUNTAIN CLERK [address] [facility] [place] [address] Nurse Practitioner Hematology/Oncology 10/25/21 Denita Rai, KERRY [address] [facility] [place] [address] Specialty Structural Draftsman Hematology/Oncology 10/25/21 Drapery Seamstress Relationship Specialty Start Date End Date Christina Azul MD [address] [place] [address] PCP - General Family Practice 07/03/21 Sofie Diana MD [address] [place] [address] Primary Staff Physician Cardiology 07/03/21 Verito Whelan MD [address] [place] [address] Referring Pulmonary Disease 10/04/21 Nina Grigsby MD [address] [facility] [place] [address] Physician Hematology/Oncology 10/25/21 Patricia Miller, TOWER EXCAVATOR OPERATOR.FOUNTAIN CLERK [address] [facility] [place] [address] Nurse Practitioner Hematology/Oncology 10/25/21 Denita Rai, KERRY [address] [facility] [place] [address] Specialty Structural Draftsman Hematology/Oncology 10/25/21 Drapery Seamstress Relationship Specialty Start Date End Date Christina Azul MD [address] [place] [address] PCP - General Family Practice 07/03/21 Sofie Diana MD [address] [place] [address] Primary Staff Physician Cardiology 07/03/21 Verito Whelan MD [address] [place] [address] Referring Pulmonary Disease 10/04/21 Nina Grigsby MD [address] [facility] [place] [address] Physician Hematology/Oncology 10/25/21 Patricia Miller, OZZIE.FOUNTAIN CLERK [address] [facility] [place] [address] Nurse Practitioner Hematology/Oncology 10/25/21 Denita Rai, KERRY [address] [facility] [place] [address] Specialty Structural Draftsman Hematology/Oncology 10/25/21 Drapery Seamstress Relationship Specialty Start Date End Date Christina Azul MD [address] [place] [address] PCP - General Family Medicine 07/03/21 Sofie Diana MD [address] [place] [address] Primary Staff Physician Cardiology 07/03/21 Verito Whelan MD [address] [place] [address] Referring Pulmonary Disease 10/04/21 Nina Grigsby MD [address] [place] [address] [place] [address] Physician Hematology/Oncology 10/25/21 Patricia Miller, TOWER EXCAVATOR OPERATOR.FOUNTAIN CLERK [address] [facility] [place] [address] Nurse Practitioner Hematology/Oncology 10/25/21 Denita Rai, KERRY [address] [place] [address] [place] [address] Specialty Structural Draftsman Hematology/Oncology 10/25/21 Drapery Seamstress Relationship Specialty Start Date End Date Christina Azul MD [address] [place] [address] PCP - General Family Medicine 07/03/21 Sofie Diana MD [address] [place] [address] Primary Staff Physician Cardiology 07/03/21 Verito Whelan MD [address] [place] [address] Referring Pulmonary Disease 10/04/21 Nina Grigsby MD [address] [facility] [place] [address] Physician Hematology/Oncology 10/25/21 Patricia Miller, TOWER EXCAVATOR OPERATOR.FOUNTAIN CLERK [address] [facility] [place] [address] Nurse Practitioner Hematology/Oncology 10/25/21 Denita Rai, KERRY [address] [place] [address] [place] [address] Specialty Structural Draftsman Hematology/Oncology 10/25/21 Drapery Seamstress Relationship Specialty Start Date End Date Christina Azul MD [address] [place] [address] PCP - General Family Medicine 07/03/21 Sofei Diana MD [address] [place] [address] Primary Staff Physician Cardiology 07/03/21 Verito Whelan MD [address] [place], [place] [address]324[address] Referring Pulmonary Disease 10/04/21 Nina Grigsby MD [address] [facility] [place] [address] Physician Hematology/Oncology 10/25/21 Patricia Miller, TOWER EXCAVATOR OPERATOR.FOUNTAIN CLERK [address] [facility] [place] [address] Nurse Practitioner Hematology/Oncology 10/25/21 Denita Rai, RN [address] [facility] [place] [address] Specialty Structural Draftsman Hematology/Oncology 10/25/21 Drapery Seamstress Relationship Specialty Start Date End Date Christina Azul MD [address] [place] [id number] PCP - General Family Medicine 07/03/21 Sofie Diana MD [address] [place] [address] Primary Staff Physician Cardiology 07/03/21 Verito Whelan MD [address] [place] [address] Referring Pulmonary Disease 10/04/21 Nina Grigsby MD [address] [facility] [place] [address] Physician Hematology/Oncology 10/25/21 Patricia Miller, TOWER EXCAVATOR OPERATOR.[address] [place] [address] Nurse Practitioner Hematology/Oncology 10/25/21 Denita Rai, KERRY [address] [place] [address] [place] [address] Specialty Structural Draftsman Hematology/Oncology 10/25/21 Drapery Seamstress Relationship Specialty Start Date End Date Christina Azul MD [address] [place] [address] PCP - General Family Medicine 07/03/21 Sofie Diana MD [address] [place] [address] Primary Staff Physician Cardiology 07/03/21 Verito Whelan MD [address] [place] [address] Referring Pulmonary Disease 10/04/21 Nina Grigsby MD [address] [facility] [place] [address] Physician Hematology/Oncology 10/25/21 Patricia Miller, TOWER EXCAVATOR OPERATOR.FOUNTAIN CLERK [address] [place] [address] [place] [address] Nurse Practitioner Hematology/Oncology 10/25/21 Denita Rai, KERRY [address] [facility] [place] [address] Specialty Structural Draftsman Hematology/Oncology 10/25/21 Drapery Seamstress Relationship Specialty Start Date End Date Christina Azul MD [address] [place] [address] PCP - General Family Medicine 07/03/21 Sofie Diana MD [address] [place] [address] Primary Staff Physician Cardiology 07/03/21 Verito Whelan MD [address] [place] [address] Referring Pulmonary Disease 10/04/21 Nina Grigsby MD [address] [facility] [place] [address] Physician Hematology/Oncology 10/25/21 Patricia Miller, TOWER EXCAVATOR OPERATOR.[facility] [address] [facility] [place] [address] Nurse Practitioner Hematology/Oncology 10/25/21 Denita Rai, RN [address] [facility] [place] [address] Specialty Structural Draftsman Hematology/Oncology 10/25/21 Drapery Seamstress Relationship Specialty Start Date End Date Christina Azul MD [address] [place] [place] [id number] PCP - General Family Medicine 07/03/21 Sofie Diana MD [address] [place] [address] Primary Staff Physician Cardiology 07/03/21 Verito Whelan MD [address] [place] [address] Referring Pulmonary Disease 10/04/21 Nina Grigsby MD [address] [facility] [place] [address] Physician Hematology/Oncology 10/25/21 Patricia Miller, TOWER EXCAVATOR OPERATOR.FOUNTAIN CLERK [address] [facility] [place] [address] Nurse Practitioner Hematology/Oncology 10/25/21 Denita Rai, RN [address] [facility] [place] [address] Specialty Structural Draftsman Hematology/Oncology 10/25/21 Drapery Seamstress Relationship Specialty Start Date End Date Christina Azul MD [address] [place] [address] PCP - General Family Medicine 07/03/21 Sofie Diana MD [address] [place] [address] Primary Staff Physician Cardiology 07/03/21 Verito Whelan MD [address] [place] [address] Referring Pulmonary Disease 10/04/21 Nina Grigsby MD [address] [facility] [place] [address] Physician Hematology/Oncology 10/25/21 Patricia Miller, TOWER EXCAVATOR OPERATOR.FOUNTAIN CLERK [address] [facility] [place] [address] Nurse Practitioner Hematology/Oncology 10/25/21 Denita Rai, KERRY [address] [facility] [place] [address] Specialty Structural Draftsman Hematology/Oncology 10/25/21 Drapery Seamstress Relationship Specialty Start Date End Date Christina Azul MD [address] [place] [address] PCP - General Family Medicine 07/03/21 Sofie Diana MD [address] [place] [address] Primary Staff Physician Cardiology 07/03/21 Verito Whelan MD [address] [place] [address] Referring Pulmonary Disease 10/04/21 Nina Grigsby MD [address] [facility] [place] [address] Physician Hematology/Oncology 10/25/21 Patricia Miller, TOWER EXCAVATOR OPERATOR.FOUNTAIN CLERK [address] [facility] [place] [address] Nurse Practitioner Hematology/Oncology 10/25/21 Denita Rai, RN [address] [facility] [place] [address] Specialty Structural Draftsman Hematology/Oncology 10/25/21 Drapery Seamstress Relationship Specialty Start Date End Date Christina Azul MD [address] [place] [address] PCP - General Family Medicine 07/03/21 Sofie Diana MD [address] [place] [address] Primary Staff Physician Cardiology 07/03/21 Verito Whelan MD [address] [place] [address] Referring Pulmonary Disease 10/04/21 Nina Grigsby MD [address] [facility] [place] [address] Physician Hematology/Oncology 10/25/21 Patricia Miller, TOWER EXCAVATOR OPERATOR.FOUNTAIN CLERK [address] [facility] [place] [address] Nurse Practitioner Hematology/Oncology 10/25/21 Denita Rai, KERRY [address] [facility] [place] [address] Specialty Structural Draftsman Hematology/Oncology 10/25/21 Drapery Seamstress Relationship Specialty Start Date End Date Christina Azul MD [address] [place] [address] PCP - General Family Medicine 07/03/21 Sofie Diana MD [address] [place] [address] Primary Staff Physician Cardiology 07/03/21 Verito Whelan MD [address] [place] [address] Referring Pulmonary Disease 10/04/21 Nina Grigsby MD [address] [facility] [place] [address] Physician Hematology/Oncology 10/25/21 Patricia Miller APRN.FOUNTAIN CLERK [address] [facility] [place] [address] Nurse Practitioner Hematology/Oncology 10/25/21 Denita Rai, KERRY [address] [facility] [place] [address] Specialty Structural Draftsman Hematology/Oncology 10/25/21 Drapery Seamstress Relationship Specialty Start Date End Date Christina Azul MD [address] [place] [address] PCP - General Family Medicine 07/03/21 Sofie Diana MD [address] [place] [address] Primary Staff Physician Cardiology 07/03/21 Verito Whelan MD [address] [place] [address] Referring Pulmonary Disease 10/04/21 Nina Grigsby MD [address] [facility] [place] [address] Physician Hematology/Oncology 10/25/21 Patricia Miller, TOWER EXCAVATOR OPERATOR.FOUNTAIN CLERK [address] [facility] [place] [address] Nurse Practitioner Hematology/Oncology 10/25/21 Denita Rai, KERRY [address] [place] [address] [place] [address] Specialty Structural Draftsman Hematology/Oncology 10/25/21 Drapery Seamstress Relationship Specialty Start Date End Date Christina Azul MD [address] [place] [address] PCP - General Family Medicine 07/03/21 Sofie Diana MD [address] [place] [address] Primary Staff Physician Cardiology 07/03/21 Verito Whelan MD [address] [place] [address] Referring Pulmonary Disease 10/04/21 Nina Grigsby MD [address] [facility] [place] [address] Physician Hematology/Oncology 10/25/21 Patricia Miller, TOWER EXCAVATOR OPERATOR.FOUNTAIN CLERK [address] [facility] [place] [address] Nurse Practitioner Hematology/Oncology 10/25/21 Denita Rai, KERRY [address] [facility] [place] [address] Specialty Structural Draftsman Hematology/Oncology 10/25/21 Drapery Seamstress Relationship Specialty Start Date End Date Christina Azul MD [address] [place], [place] [address] PCP - General Family Medicine 07/03/21 Sofie Diana MD [address] [place] [address] Primary Staff Physician Cardiology 07/03/21 Verito Whelan MD [address] [place] [address] Referring Pulmonary Disease 10/04/21 Nina Grigsby MD [address] [place] [address] [place] [address] Physician Hematology/Oncology 10/25/21 Patricia Miller, TOWER EXCAVATOR OPERATOR.FOUNTAIN CLERK [address] [facility] [place] [address] Nurse Practitioner Hematology/Oncology 10/25/21 Denita Rai, RN [address] [facility] [place] [address] Specialty Structural Draftsman Hematology/Oncology 10/25/21 Drapery Seamstress Relationship Specialty Start Date End Date Christina Azul MD [address] [place] [id number] PCP - General Family Medicine 07/03/21 Sofie Diana MD [address] [place] [address] Primary Staff Physician Cardiology 07/03/21 Verito Whelan MD [address] [place] [address] Referring Pulmonary Disease 10/04/21 Nina Grigsby MD [address] [facility] [place] [address] Physician Hematology/Oncology 10/25/21 Patricia Miller, TOWER EXCAVATOR OPERATOR.[address] [place] [address] Nurse Practitioner Hematology/Oncology 10/25/21 Denita Rai, KERRY [address] [place] [address] [place] [address] Specialty Structural Draftsman Hematology/Oncology 10/25/21 Drapery Seamstress Relationship Specialty Start Date End Date Christina Azul MD [address] [place] [address] PCP - General Family Medicine 07/03/21 Sofie Diana MD [address] [place] [address] Primary Staff Physician Cardiology 07/03/21 Verito Whelan MD [address] [place] [address] Referring Pulmonary Disease 10/04/21 Nina Grigsby MD [address] [place] [address] [place] [address] Physician Hematology/Oncology 10/25/21 Patricia Miller, TOWER EXCAVATOR OPERATOR.[address] [place] [address] Nurse Practitioner Hematology/Oncology 10/25/21 Denita Rai, KERRY [address] [place] [address] [place] [address] Specialty Structural Draftsman Hematology/Oncology 10/25/21 Drapery Seamstress Relationship Specialty Start Date End Date Christina Azul MD [address] [place] [address] PCP - General Family Medicine 07/03/21 Sofie Diana MD [address] [place], [place] [address] Primary Staff Physician Cardiology 07/03/21 Verito Whelan MD [address] [place], [place] [address] Referring Pulmonary Disease 10/04/21 Nina Grigsby MD [address] [facility] [place] [address] Physician Hematology/Oncology 10/25/21 Patricia Miller, TOWER EXCAVATOR OPERATOR.FOUNTAIN CLERK [address] [facility] [place] [address] Nurse Practitioner Hematology/Oncology 10/25/21 Denita Rai, KERRY [address] [facility] [place] [address] Specialty Structural Draftsman Hematology/Oncology 10/25/21 Drapery Seamstress Relationship Specialty Start Date End Date Christina Azul MD [address] [place] [address] PCP - General Family Medicine 07/03/21 Sofie Diana MD [address] [place] [address] Primary Staff Physician Cardiology 07/03/21 Verito Whelan MD [address] [place] [address] Referring Pulmonary Disease 10/04/21 Nina Grigsby MD [address] [facility] [place] [address] Physician Hematology/Oncology 10/25/21 Patricia Miller, TOWER EXCAVATOR OPERATOR.FOUNTAIN CLERK [address] [place] [address] [place] [address] Nurse Practitioner Hematology/Oncology 10/25/21 Denita Rai, RN [address] [facility] [place] [address] Specialty Structural Draftsman Hematology/Oncology 10/25/21 Drapery Seamstress Relationship Specialty Start Date End Date Christina Azul MD [address] [place] [place] [id number] PCP - General Family Medicine 07/03/21 Sofie Diana MD [address] [place], [place] [address] Primary Staff Physician Cardiology 07/03/21 Verito Whelan MD [address] [place] [address] Referring Pulmonary Disease 10/04/21 Nina Grigsby MD [address] [facility] [place] [address] Physician Hematology/Oncology 10/25/21 Patricia Miller, TOWER EXCAVATOR OPERATOR.[facility] [address] [facility] [place] [address] Nurse Practitioner Hematology/Oncology 10/25/21 Denita Rai, RN [address] [facility] [place] [address] Specialty Structural Draftsman Hematology/Oncology 10/25/21 Drapery Seamstress Relationship Specialty Start Date End Date Christina Azul MD [address] [place] [place] [id number] PCP - General Family Medicine 07/03/21 Sofie Diana MD [address] [place] [address] Primary Staff Physician Cardiology 07/03/21 Verito Whelan MD [address] [place] [address] Referring Pulmonary Disease 10/04/21 Nina Grigsby MD [address] [facility] [place] [address] Physician Hematology/Oncology 10/25/21 Patricia Miller, TOWER EXCAVATOR OPERATOR.FOUNTAIN CLERK [address] [facility] [place] [address] Nurse Practitioner Hematology/Oncology 10/25/21 Denita Rai, KERRY [address] [place] [address] [place] [address] Specialty Structural Draftsman Hematology/Oncology 10/25/21 Drapery Seamstress Relationship Specialty Start Date End Date Christina Azul MD [address] [place] [address] PCP - General Family Medicine 07/03/21 Sofie Diana MD [address] [place] [address] Primary Staff Physician Cardiology 07/03/21 Verito Whelan MD [address] [place] [address] Referring Pulmonary Disease 10/04/21 Nina Grigsby MD [address] [facility] [place] [address] Physician Hematology/Oncology 10/25/21 Patricia Miller, TOWER EXCAVATOR OPERATOR.FOUNTAIN CLERK [address] [facility] [place] [address] Nurse Practitioner Hematology/Oncology 10/25/21 Denita Rai, KERRY [address] [facility] [place] [address] Specialty Structural Draftsman Hematology/Oncology 10/25/21 Drapery Seamstress Relationship Specialty Start Date End Date Christina Azul MD [address] [place] [address] PCP - General Family Medicine 07/03/21 Sofie Diana MD [address] [place] [address] Primary Staff Physician Cardiology 07/03/21 Verito Whelan MD [address] [place], [place] [id number] Referring Pulmonary Disease 10/04/21 Nina Grigsby MD [address] [facility] [place] [address] Physician Hematology/Oncology 10/25/21 Patricia Miller, TOWER EXCAVATOR OPERATOR.FOUNTAIN CLERK [address] [facility] [place] [address] Nurse Practitioner Hematology/Oncology 10/25/21 Denita Rai, KERRY [address] [facility] [place] [address] Specialty Structural Draftsman Hematology/Oncology 10/25/21 Drapery Seamstress Relationship Specialty Start Date End Date Christina Azul MD [address] [place] [address] PCP - General Family Medicine 07/03/21 Sofie Diana MD [address] [place] [address] Primary Staff Physician Cardiology 07/03/21 Verito Whelan MD [address] [place] [address] Referring Pulmonary Disease 10/04/21 Nina Grigsby MD [address] [facility] [place] [address] Physician Hematology/Oncology 10/25/21 Patricia Miller, TOWER EXCAVATOR OPERATOR.FOUNTAIN CLERK [address] [facility] [place] [address] Nurse Practitioner Hematology/Oncology 10/25/21 Denita Rai, RN [address] [facility] [place] [address] Specialty Structural Draftsman Hematology/Oncology 10/25/21 Drapery Seamstress Relationship Specialty Start Date End Date Christina Azul MD [address] [place] [address] PCP - General Family Medicine 07/03/21 Sofie Diana MD [address] [place] [address] Primary Staff Physician Cardiology 07/03/21 Verito Whelan MD [address] [place] [address] Referring Pulmonary Disease 10/04/21 Nina Grigsby MD [address] [facility] [place] [address] Physician Hematology/Oncology 10/25/21 Patricia Miller, TOWER EXCAVATOR OPERATOR.FOUNTAIN CLERK [address] [facility] [place] [address] Nurse Practitioner Hematology/Oncology 10/25/21 Denita Rai, RN [address] [facility] [place] [address] Specialty Structural Draftsman Hematology/Oncology 10/25/21 Drapery Seamstress Relationship Specialty Start Date End Date Christina Azul MD [address] [place] [address] PCP - General Family Medicine 07/03/21 Sofie Diana MD [address] [place] [address] Primary Staff Physician Cardiology 07/03/21 Verito Whelan MD [address] [place] [address] Referring Pulmonary Disease 10/04/21 Nina Grigsby MD [address] [facility] [place] [address] Physician Hematology/Oncology 10/25/21 Patricia Miller APRN.FOUNTAIN CLERK [address] [facility] [place] [address] Nurse Practitioner Hematology/Oncology 10/25/21 Denita Rai, KERRY [address] [facility] [place] [address] Specialty Structural Draftsman Hematology/Oncology 10/25/21 Drapery Seamstress Relationship Specialty Start Date End Date Christina Azul MD [address] [place] [id number] PCP - General Family Medicine 07/03/21 Sofie Diana MD [address] [place] [address] Primary Staff Physician Cardiology 07/03/21 Verito Whelan MD [address] [place] [address] Referring Pulmonary Disease 10/04/21 Nina Grigsby MD [address] [facility] [place] [address] Physician Hematology/Oncology 10/25/21 Patricia Miller, TOWER EXCAVATOR OPERATOR.[facility] [address] [facility] [place] [address] Nurse Practitioner Hematology/Oncology 10/25/21 Denita Rai, RN [address] [place] [address] [place] [address] Specialty Structural Draftsman Hematology/Oncology 10/25/21 Drapery Seamstress Relationship Specialty Start Date End Date Christina Azul MD [address] [place] [address] PCP - General Family Medicine 07/03/21 Sofie Diana MD [address] [place] [address] Primary Staff Physician Cardiology 07/03/21 Verito Whelan MD [address] [place] [address] Referring Pulmonary Disease 10/04/21 Nina Grigsby MD [address] [facility] [place] [address] Physician Hematology/Oncology 10/25/21 Patricia Miller, TOWER EXCAVATOR OPERATOR.[facility] [address] [facility] [place] [address] Nurse Practitioner Hematology/Oncology 10/25/21 Denita Rai, KERRY [address] [place] [address] [place] [address] Specialty Structural Draftsman Hematology/Oncology 10/25/21 Team Status: Active Member Role Status Dates Christina Azul MD Primary Care Provider Active Team Status: Inactive Member Role Status Dates Christina Azul MD Primary Care Provider Active Sapna Angulo APRN Emergency Provider Active Drapery Seamstress Relationship Specialty Start Date End Date Christina Azul MD [address] [place] [address] PCP - General Family Medicine 07/03/21 Sofie Diana MD [address] [place] [address] Primary Staff Physician Cardiology 07/03/21 Verito Whelan MD [address] [place] [address] Referring Pulmonary Disease 10/04/21 Nina Grigsby MD [address] [facility] [place] [address] Physician Hematology/Oncology 10/25/21 Patricia Miller APRN.FOUNTAIN CLERK [address] [facility] [place] [address] Nurse Practitioner Hematology/Oncology 10/25/21 Denita Rai, RN [address] [facility] [place] [address] Specialty Structural Draftsman Hematology/Oncology 10/25/21 Drapery Seamstress Relationship Specialty Start Date End Date Christina Azul MD [address] [place] [id number] PCP - General Family Medicine 07/03/21 Sofie Diana MD [address] [place] [address] Primary Staff Physician Cardiology 07/03/21 Verito Whelan MD [address] [place] [address] Referring Pulmonary Disease 10/04/21 Nina Grigsby MD [address] [facility] [place] [address] Physician Hematology/Oncology 10/25/21 Patricia Miller, TOWER EXCAVATOR OPERATOR.FOUNTAIN CLERK [address] [facility] [place] [address] Nurse Practitioner Hematology/Oncology 10/25/21 Denita Rai, KERRY [address] [facility] [place] [address] Specialty Structural Draftsman Hematology/Oncology 10/25/21 Minna Madrigal LSW Doubler Helper 01/08/23 Drapery Seamstress Relationship Specialty Start Date End Date Christina Azul MD [address] [place] [address] PCP - General Family Medicine 07/03/21 Sofie Diana MD [address] [place], [place] [id number] Primary Staff Physician Cardiology 07/03/21 Verito Whelan MD [address] [place] [address] Referring Pulmonary Disease 10/04/21 Nina Grigsby MD [address] [facility] [place] [address] Physician Hematology/Oncology 10/25/21 Patricia Miller, TOWER EXCAVATOR OPERATOR.FOUNTAIN CLERK [address] [facility] [place] [address] Nurse Practitioner Hematology/Oncology 10/25/21 Denita Rai, KERRY [address] [facility] [place] [address] Specialty Structural Draftsman Hematology/Oncology 10/25/21 Minna Madrigal, MARGARET Doubler Helper 01/08/23 Drapery Seamstress Relationship Specialty Start Date End Date Christina Azul MD [address] [place] [address] PCP - General Family Medicine 07/03/21 Sofie Diana MD [address] [place] [address] Primary Staff Physician Cardiology 07/03/21 Verito Whelan MD [address] [place], [place] 0336195 Referring Pulmonary Disease 10/04/21 Nina Grigsby MD [address] [place] [address] [place] [address] Physician Hematology/Oncology 10/25/21 Patricia Miller, OZZIE.FOUNTAIN CLERK [address] [facility] [place] [address] Nurse Practitioner Hematology/Oncology 10/25/21 Denita Rai, RN [address] [facility] [place] [address] Specialty Structural Draftsman Hematology/Oncology 10/25/21 Minna Madrigal LSW Doubler Helper 01/08/23 Drapery Seamstress Relationship Specialty Start Date End Date Christina Azul MD [address] [place] [id number] PCP - General Family Medicine 07/03/21 Sofie Diana MD [address] [place] [address] Primary Staff Physician Cardiology 07/03/21 Verito Whelan MD [address] [place] [address] Referring Pulmonary Disease 10/04/21 Nina Grigsby MD [address] [facility] [address] Physician Hematology/Oncology 10/25/21 Patricia Miller, TOWER EXCAVATOR OPERATOR.FOUNTAIN CLERK [address] [facility] [place] [address] Nurse Practitioner Hematology/Oncology 10/25/21 Denita Rai, KERRY [address] [facility] [place] [address] Specialty Structural Draftsman Hematology/Oncology 10/25/21 Minna Madrigal LSW Doubler Helper 01/08/23 Drapery Seamstress Relationship Specialty Start Date End Date Christina Azul MD [address] [place] [address] PCP - General Family Medicine 07/03/21 Sofie Diana MD [address] [place], [place] 3091995 Primary Staff Physician Cardiology 07/03/21 Verito Whelan MD [address] [place], [place] [id number] Referring Pulmonary Disease 10/04/21 Nina Grigsby MD [address] [place] [address] [place] [address] Physician Hematology/Oncology 10/25/21 Patricia Miller, TOWER EXCAVATOR OPERATOR.FOUNTAIN CLERK [address] [facility] [place] [address] Nurse Practitioner Hematology/Oncology 10/25/21 Denita Rai, RN [address] [facility] [place] [address] Specialty Structural Draftsman Hematology/Oncology 10/25/21 Minna Madrigal LSW Doubler Helper 01/08/23 Drapery Seamstress Relationship Specialty Start Date End Date Christina Azul MD [address] [place] [address] PCP - General Family Medicine 07/03/21 Sofie Diana MD [address] [place] [address] Primary Staff Physician Cardiology 07/03/21 Verito Whelan MD [address] [place], [place] [id number] Referring Pulmonary Disease 10/04/21 Nina Grigsby MD [address] [facility] [place] [address] Physician Hematology/Oncology 10/25/21 Patricia Miller APRN.FOUNTAIN CLERK [address] [place] [address] [place] [address] Nurse Practitioner Hematology/Oncology 10/25/21 Denita Rai, RN [address] [facility] [place] [address] Specialty Structural Draftsman Hematology/Oncology 10/25/21 Minna Madrigal LSW Doubler Helper 01/08/23 Drapery Seamstress Relationship Specialty Start Date End Date Christina Azul MD [address] [place] [address] PCP - General Family Medicine 07/03/21 Sofie Diana MD [address] [place] [address] Primary Staff Physician Cardiology 07/03/21 Verito Whelan MD [address] [place] [address] Referring Pulmonary Disease 10/04/21 Nina Grigsby MD [address] [place] [address] [place] [address] Physician Hematology/Oncology 10/25/21 Patricia Miller, TOWER EXCAVATOR OPERATOR.FOUNTAIN CLERK [address] [facility] [address] Nurse Practitioner Hematology/Oncology 10/25/21 Denita Rai, KERRY [address] [place] [address] [place] [address] Specialty Structural Draftsman Hematology/Oncology 10/25/21 Minna Madrigal LSW Doubler Helper 01/08/23 Drapery Seamstress Relationship Specialty Start Date End Date Christina Azul MD [address] [place] [address] PCP - General Family Medicine 07/03/21 Sofie Diana MD [address] [place] [address] Primary Staff Physician Cardiology 07/03/21 Verito Whelan MD [address] [place] [address] Referring Pulmonary Disease 10/04/21 Nina Grigsby MD [address] [place] [address] [place] [address] Physician Hematology/Oncology 10/25/21 Patricia Miller, TOWER EXCAVATOR OPERATOR.FOUNTAIN CLERK [address] [facility] [place] [address] [place] [id number] Nurse Practitioner Hematology/Oncology 10/25/21 Denita Rai, KERRY [address] [place] [address] [place] [address] Specialty Structural Draftsman Hematology/Oncology 10/25/21 Minna Madrigal LSW Doubler Helper 01/08/23 Drapery Seamstress Relationship Specialty Start Date End Date Christina Azul MD [address] [place] [id number] PCP - General Family Medicine 07/03/21 Sofie Diana MD [address] [place] [phone] Primary Staff Physician Cardiology 07/03/21 Verito Whelan MD [address] [place] [phone] Referring Pulmonary Disease 10/04/21 Nina Grigsby MD [address] [place] [address] [place] [address] Physician Hematology/Oncology 10/25/21 Patricia Miller, TOWER EXCAVATOR OPERATOR.FOUNTAIN CLERK [address] [place] [address] [place] [address] Nurse Practitioner Hematology/Oncology 10/25/21 Denita Rai, KERRY [address] [facility] [place] [address] Specialty Structural Draftsman Hematology/Oncology 10/25/21 Minna Madrigal LSW Doubler Helper 01/08/23 Drapery Seamstress Relationship Specialty Start Date End Date Christina Azul MD [address] [place] [address] PCP - General Family Medicine 07/03/21 Sofie Diana MD [address] [place] [phone] Primary Staff Physician Cardiology 07/03/21 Verito Whelan MD [address] [place] [phone] Referring Pulmonary Disease 10/04/21 Nina Grigsby MD [address] [facility] [place] [address] Physician Hematology/Oncology 10/25/21 Patricia Miller APRN.FOUNTAIN CLERK [address] [facility] [place] [address] Nurse Practitioner Hematology/Oncology 10/25/21 Denita Rai, KERRY [address] [facility] [place] [address] Specialty Structural Draftsman Hematology/Oncology 10/25/21 Minna Madrigal LSW Doubler Helper 01/08/23 Drapery Seamstress Relationship Specialty Start Date End Date Christina Azul MD [address] [place] [id number] PCP - General Family Medicine 07/03/21 Sofie Diana MD [address] [place] [address] Primary Staff Physician Cardiology 07/03/21 Verito Whelan MD [address] [place] [phone] Referring Pulmonary Disease 10/04/21 Nina Grigsby MD [address] [facility] [address] Physician Hematology/Oncology 10/25/21 Patricia Miller, TOWER EXCAVATOR OPERATOR.FOUNTAIN CLERK [address] [facility] [place] [address] Nurse Practitioner Hematology/Oncology 10/25/21 Denita Rai, KERRY [address] [facility] [place] [address] Specialty Structural Draftsman Hematology/Oncology 10/25/21 Minna Madrigal LSW Doubler Helper 01/08/23 Drapery Seamstress Relationship Specialty Start Date End Date Christina Azul MD [address] [place] [address] PCP - General Family Medicine 07/03/21 Sofie Diana MD [address] [place] [phone] Primary Staff Physician Cardiology 07/03/21 Verito Whelan MD [address] [place] [phone] Referring Pulmonary Disease 10/04/21 Nina Grigsby MD [address] [facility] [address] Physician Hematology/Oncology 10/25/21 Patricia Miller, TOWER EXCAVATOR OPERATOR.FOUNTAIN CLERK [address] [facility] [place] [address] Nurse Practitioner Hematology/Oncology 10/25/21 Denita Rai, KERRY [address] [facility] [place] [address] Specialty Structural Draftsman Hematology/Oncology 10/25/21 Minna Madrigal LSW Doubler Helper 01/08/23 Drapery Seamstress Relationship Specialty Start Date End Date Christina Azul MD [address] [place] [address] PCP - General Family Medicine 07/03/21 Sofie Diana MD [address] [place], [place] 4998295 Primary Staff Physician Cardiology 07/03/21 Verito Whelan MD [address] [place], [place] [id number] Referring Pulmonary Disease 10/04/21 Nina Grigsby MD [address] [facility] [place] [address] Physician Hematology/Oncology 10/25/21 Patricia Miller APRN.FOUNTAIN CLERK [address] [place] [address] [place] [address] Nurse Practitioner Hematology/Oncology 10/25/21 Denita Rai, KERRY [address] [facility] [place] [address] Specialty Structural Draftsman Hematology/Oncology 10/25/21 Minna Madrigal LSW Doubler Helper 01/08/23 Drapery Seamstress Relationship Specialty Start Date End Date Christina Azul MD [address] [place] [address] PCP - General Family Medicine 07/03/21 Sofie Diana MD [address] [place], [place] 3301495 Primary Staff Physician Cardiology 07/03/21 Verito Whelan MD [address] [place], [place] 0192795 Referring Pulmonary Disease 10/04/21 Nina Grigsby MD [address] [place] [address] [place] [address] Physician Hematology/Oncology 10/25/21 Patricia Miller APRN.FOUNTAIN CLERK [address] [place] [address] [place] [address] Nurse Practitioner Hematology/Oncology 10/25/21 Denita Rai, KERRY [address] [place] [address] [place] [address] Specialty Structural Draftsman Hematology/Oncology 10/25/21 Minna Madrigal LSW Doubler Helper 01/08/23 Drapery Seamstress Relationship Specialty Start Date End Date Christina Azul MD [address] [place] [address] PCP - General Family Medicine 07/03/21 Sofie Diana MD [address] [place] [address] Primary Staff Physician Cardiology 07/03/21 Verito Whelan MD [address] [place] [place], [place] 9644[address] Referring Pulmonary Disease 10/04/21 Nina Grigsby MD [address] [place] [address] [place] [address] Physician Hematology/Oncology 10/25/21 Patricia Miller, TOWER EXCAVATOR OPERATOR.FOUNTAIN CLERK [address] [facility] [place] [address] Nurse Practitioner Hematology/Oncology 10/25/21 Denita Rai, RN [address] [facility] [place] [address] Specialty Structural Draftsman Hematology/Oncology 10/25/21 Minna Madrigal LSW Doubler Helper 01/08/23 Drapery Seamstress Relationship Specialty Start Date End Date hCristina Azul MD [address] [place] [address] PCP - General Family Medicine 07/03/21 Sofie Diana MD [address] [place], [place] [phone] Primary Staff Physician Cardiology 07/03/21 Verito Whelan MD [address] [place] [address] Referring Pulmonary Disease 10/04/21 Nina Grigsby MD [address] [place] [address] [place] [address] Physician Hematology/Oncology 10/25/21 Patricia Miller, TOWER EXCAVATOR OPERATOR.FOUNTAIN CLERK [address] [facility] [place] [address] Nurse Practitioner Hematology/Oncology 10/25/21 Denita Rai, KERRY [address] [facility] [place] [address] Specialty Structural Draftsman Hematology/Oncology 10/25/21 Minna Madrigal LSW Doubler Helper 01/08/23 Drapery Seamstress Relationship Specialty Start Date End Date Christina Azul MD [address] [place] [address] PCP - General Family Medicine 07/03/21 Sofie Diana MD [address] [place] [address] Primary Staff Physician Cardiology 07/03/21 Verito Whelan MD [address] [place], [place] [id number] Referring Pulmonary Disease 10/04/21 Nina Grigsby MD [address] [place] [address] [address] [place] [id number] Physician Hematology/Oncology 10/25/21 Patricia Miller APRN.FOUNTAIN CLERK [address] [place] [address] [place] [address] Nurse Practitioner Hematology/Oncology 10/25/21 Denita Rai, KERRY [address] [facility] [place] [address] Specialty Structural Draftsman Hematology/Oncology 10/25/21 Minna Madrigal LSW Doubler Helper 01/08/23 Drapery Seamstress Relationship Specialty Start Date End Date Christina Azul MD [address] [place] [address] PCP - General Family Medicine 07/03/21 Sofie Diana MD [address] [place], [place] [id number] Primary Staff Physician Cardiology 07/03/21 Verito Whelan MD [address] [place] [address] Referring Pulmonary Disease 10/04/21 Nina Grigsby MD [address] [facility] [place] [address] Physician Hematology/Oncology 10/25/21 Patricia Miller APRN.FOUNTAIN CLERK [address] [facility] [place] [address] Nurse Practitioner Hematology/Oncology 10/25/21 Denita Rai, KERRY [address] [facility] [place] [address] Specialty Structural Draftsman Hematology/Oncology 10/25/21 Minna Madrigal LSW Doubler Helper 01/08/23 Drapery Seamstress Relationship Specialty Start Date End Date Christina Azul MD [address] [place] [address] PCP - General Family Medicine 07/03/21 Sofie Diana MD [address] [facility] [place] [phone] Primary Staff Physician Cardiology 07/03/21 Verito [place]hel[place] MD [address] [place], [place] [phone] Referring Pulmonary Disease 10/04/21 Nina Grigsby MD [address] [facility] [place] [address] Physician Hematology/Oncology 10/25/21 Patricia Miller, TOWER EXCAVATOR OPERATOR.FOUNTAIN CLERK [address] [facility] [place] [address] Nurse Practitioner Hematology/Oncology 10/25/21 Denita Rai, RN [address] [facility] [place] [address] Specialty Structural Draftsman Hematology/Oncology 10/25/21 Minna Madrigal LSW Doubler Helper 01/08/23 Drapery Seamstress Relationship Specialty Start Date End Date Christina Azul MD [address] [place] [address] PCP - General Family Medicine 07/03/21 Sofie Diana MD [address] [place], [place] [id number] Primary Staff Physician Cardiology 07/03/21 Verito Whelan MD [address] [place] [address] Referring Pulmonary Disease 10/04/21 Nina Grigsby MD [address] [facility] [place] [address] Physician Hematology/Oncology 10/25/21 Patricia Miller, TOWER EXCAVATOR OPERATOR.FOUNTAIN CLERK [address] [facility] [place] [address] Nurse Practitioner Hematology/Oncology 10/25/21 Denita Rai, KERRY [address] [facility] [place] [address] Specialty Structural Draftsman Hematology/Oncology 10/25/21 Minna Madrigal LSW Doubler Helper 01/08/23 Drapery Seamstress Relationship Specialty Start Date End Date Christina Azul MD [address] [place] [address] PCP - General Family Medicine 07/03/21 Sofie Diana MD [address] [place], [place] [address]804[address] Primary Staff Physician Cardiology 07/03/21 Verito Whelan MD [address] [place] [address] Referring Pulmonary Disease 10/04/21 Nina Grigsby MD [address] [place] [address] [place] [address] Physician Hematology/Oncology 10/25/21 Patricia Miller APRN.FOUNTAIN CLERK [address] [place] [address] [place] [address] Nurse Practitioner Hematology/Oncology 10/25/21 Denita Rai, KERRY [address] [place] [address] [place] [address] Specialty Structural Draftsman Hematology/Oncology 10/25/21 Minna Madrigal LSW Doubler Helper 01/08/23 Drapery Seamstress Relationship Specialty Start Date End Date Christina Azul MD [address] [place] [address] PCP - General Family Medicine 07/03/21 Sofie Diana MD [address] [place] [address] Primary Staff Physician Cardiology 07/03/21 Verito Whelan MD [address] [place], [place] [phone] Referring Pulmonary Disease 10/04/21 Nina Grigsby MD [address] [place] [address] [place] [address] Physician Hematology/Oncology 10/25/21 Patricia Miller, TOWER EXCAVATOR OPERATOR.FOUNTAIN CLERK [address] [place] [address] [place] [address] Nurse Practitioner Hematology/Oncology 10/25/21 Denita Rai, KERRY [address] [place] [address] [place] [address] Specialty Structural Draftsman Hematology/Oncology 10/25/21 Minna Madrigal LSW Doubler Helper 01/08/23 Drapery Seamstress Relationship Specialty Start Date End Date Christina Azul MD [address] [place] [id number] PCP - General Family Medicine 07/03/21 Sofie Diana MD [address] [place] [address] Primary Staff Physician Cardiology 07/03/21 Verito Whelan MD [address] [place] [phone] Referring Pulmonary Disease 10/04/21 Nina Grigsby MD [address] [place] [address] [place] [address] Physician Hematology/Oncology 10/25/21 Patricia Miller, TOWER EXCAVATOR OPERATOR.FOUNTAIN CLERK [address] [place] [address] [place] [address] Nurse Practitioner Hematology/Oncology 10/25/21 Denita Rai, KERRY [address] [facility] [place] [address] Specialty Structural Draftsman Hematology/Oncology 10/25/21 Minna Madrigal LSW Doubler Helper 01/08/23 Drapery Seamstress Relationship Specialty Start Date End Date Christina Azul MD [address] [place] [id number] PCP - General Family Medicine 07/03/21 Sofie Diana MD [address] [place] [phone] Primary Staff Physician Cardiology 07/03/21 Verito Whelan MD [address] [place] [phone] Referring Pulmonary Disease 10/04/21 Nina Grigsby MD [address] [place] [address] [place] [address] Physician Hematology/Oncology 10/25/21 Patricia Miller APRN.FOUNTAIN CLERK [address] [place] [address] [place] [address] Nurse Practitioner Hematology/Oncology 10/25/21 Denita Rai, KERRY [address] [facility] [place] [address] Specialty Structural Draftsman Hematology/Oncology 10/25/21 Minna Madrigal LSW Doubler Helper 01/08/23 Drapery Seamstress Relationship Specialty Start Date End Date Christina Azul MD [address] [place] [id number] PCP - General Family Medicine 07/03/21 Sofie Diana MD [address] [place] [address] Primary Staff Physician Cardiology 07/03/21 Verito Whelan MD [address] [place] [id number] Referring Pulmonary Disease 10/04/21 Nina Grigsby MD [address] [facility] [address] Physician Hematology/Oncology 10/25/21 Patricia Miller APRN.FOUNTAIN CLERK [address] [facility] [address] Nurse Practitioner Hematology/Oncology 10/25/21 Denita Rai, KERRY [address] [facility] [place] [address] Specialty Structural Draftsman Hematology/Oncology 10/25/21 Minna Madrigal LSW Doubler Helper 01/08/23 Drapery Seamstress Relationship Specialty Start Date End Date Christina Azul MD [address] [place] [address] PCP - General Family Medicine 07/03/21 Sofie Diana MD [address] [place] [address] Primary Staff Physician Cardiology 07/03/21 Verito Whelan MD [address] [place] [address] Referring Pulmonary Disease 10/04/21 Nina Grigsby MD [address] [facility] [place] [address] Physician Hematology/Oncology 10/25/21 Patricia Miller, OZZIE.FOUNTAIN CLERK [address] [facility] [place] [address] Nurse Practitioner Hematology/Oncology 10/25/21 Denita aRi, KERRY [address] [facility] [place] [address] Specialty Structural Draftsman Hematology/Oncology 10/25/21 Minna Madrigal LSW Doubler Helper 01/08/23 Drapery Seamstress Relationship Specialty Start Date End Date Christina Azul MD [address] [place] [address] PCP - General Family Medicine 07/03/21 Sofie Diana MD [address] [place], [place] [id number] Primary Staff Physician Cardiology 07/03/21 Verito Whelan MD [address] [place] [address] Referring Pulmonary Disease 10/04/21 Nina Grigsby MD [address] [facility] [place] [address] Physician Hematology/Oncology 10/25/21 Patricia Miller, TOWER EXCAVATOR OPERATOR.FOUNTAIN CLERK [address] [facility] [place] [address] Nurse Practitioner Hematology/Oncology 10/25/21 Denita Rai, KERRY [address] [facility] [place] [address] Specialty Structural Draftsman Hematology/Oncology 10/25/21 Minna Madrigal LSW Doubler Helper 01/08/23 Drapery Seamstress Relationship Specialty Start Date End Date Christina Azul MD [address] [place] [address] PCP - General Family Medicine 07/03/21 Sofie Diana MD [address] [place] [address] Primary Staff Physician Cardiology 07/03/21 Verito Whelan MD [address] [place], [place] [id number] Referring Pulmonary Disease 10/04/21 Nina Grigsby MD [address] [place] [address] [place] [address] Physician Hematology/Oncology 10/25/21 Patricia Miller APRN.FOUNTAIN CLERK [address] [place] [address] [place] [address] Nurse Practitioner Hematology/Oncology 10/25/21 Denita Rai, KERRY [address] [facility] [place] [address] Specialty Structural Draftsman Hematology/Oncology 10/25/21 Drapery Seamstress Relationship Specialty Start Date End Date Christina Azul MD [address] [place] [address] PCP - General Family Medicine 07/03/21 Sofie Diana MD [address] [place], [place] 2278195 Primary Staff Physician Cardiology 07/03/21 Ver[facility]helan MD [address] [facility] [place] [phone] Referring Pulmonary Disease 10/04/21 Nina Grigsby MD [address] [place] [address] [place] [address] Physician Hematology/Oncology 10/25/21 Patricia Miller, TOWER EXCAVATOR OPERATOR.FOUNTAIN CLERK [address] [place] [address] [place] [address] Nurse Practitioner Hematology/Oncology 10/25/21 Denita Rai, KERRY [address] [place] [address] [place] [address] Specialty Structural Draftsman Hematology/Oncology 10/25/21 Minna Madrigal LSW Doubler Helper 01/08/23 Estella Fish, TOWER EXCAVATOR OPERATOR.FOUNTAIN CLERK [address] [place] [address] [place] [address] HOSPICE & PALLIATIVE MEDICINE 05/22/23 Julieth Tapia RN Specialty Structural Draftsman HOSPICE & PALLIATIVE MEDICINE 05/22/23 Drapery Seamstress Relationship Specialty Start Date End Date Christina Azul MD [address] [place] [id number] PCP - General Family Medicine 07/03/21 Sofie Diana MD [address] [place] [address] Primary Staff Physician Cardiology 07/03/21 Verito Whelan MD [address] [place] [phone] Referring Pulmonary Disease 10/04/21 Nina Grigsby MD [address] [place] [address] [place] [address] Physician Hematology/Oncology 10/25/21 Patricia Miller, TOWER EXCAVATOR OPERATOR.FOUNTAIN CLERK [address] [place] [address] [place] [address] Nurse Practitioner Hematology/Oncology 10/25/21 Denita Rai, KERRY [address] [place] [address] [place] [address] Specialty Structural Draftsman Hematology/Oncology 10/25/21 Minna Madrigal LSW Doubler Helper 01/08/23 Estella Fish, TOWER EXCAVATOR OPERATOR.FOUNTAIN CLERK [address] [place] [address] [place] [address] HOSPICE & PALLIATIVE MEDICINE 05/22/23 Julieth Tapia RN Specialty Structural Draftsman HOSPICE & PALLIATIVE MEDICINE 05/22/23 Drapery Seamstress Relationship Specialty Start Date End Date Christina Azul MD [address] [place] [address] PCP - General Family Medicine 07/03/21 Sofie Diana MD [address] [place], [place] [id number] Primary Staff Physician Cardiology 07/03/21 Verito Whelan MD [address] [place] [address] Referring Pulmonary Disease 10/04/21 Nina Grigsby MD [address] [place] [address] [place] [address] Physician Hematology/Oncology 10/25/21 Patricia Miller, TOWER EXCAVATOR OPERATOR.FOUNTAIN CLERK [address] [place] [address] [place] [address] Nurse Practitioner Hematology/Oncology 10/25/21 Denita Rai, KERRY [address] [place] [address] [place] [address] Specialty Structural Draftsman Hematology/Oncology 10/25/21 Minna Madrigal LSW Doubler Helper 01/08/23 Estella Fish, TOWER EXCAVATOR OPERATOR.FOUNTAIN CLERK [address] [place] [address] [place] [address] HOSPICE & PALLIATIVE MEDICINE 05/22/23 Julieth Tapia RN Specialty Structural Draftsman HOSPICE & PALLIATIVE MEDICINE 05/22/23 Drapery Seamstress Relationship Specialty Start Date End Date Christina Azul MD [address] [place] [address] PCP - General Family Medicine 07/03/21 Sofie Diana MD [address] [place], [place] [id number] Primary Staff Physician Cardiology 07/03/21 Verito Whelan MD [address]01 [place] [address] Referring Pulmonary Disease 10/04/21 Nina Grigsby MD [address] [place] [address] [place] [address] Physician Hematology/Oncology 10/25/21 Patricia Miller, TOWER EXCAVATOR OPERATOR.FOUNTAIN CLERK [address] [place] [address] [place] [address] Nurse Practitioner Hematology/Oncology 10/25/21 Denita Rai, RN [address] [facility] [place] [address] Specialty Structural Draftsman Hematology/Oncology 10/25/21 Minna Madrigal LSW Doubler Helper 01/08/23 Estella Fish, TOWER EXCAVATOR OPERATOR.FOUNTAIN CLERK [address] [place] [address] [place] [address] HOSPICE & PALLIATIVE MEDICINE 05/22/23 Julieth Tapia RN Specialty Structural Draftsman HOSPICE & PALLIATIVE MEDICINE 05/22/23 Drapery Seamstress Relationship Specialty Start Date End Date Christina Azul MD [address] [place] [address] PCP - General Family Medicine 07/03/21 Sofie Diana MD [address] [place] [address] Primary Staff Physician Cardiology 07/03/21 Verito Whelan MD [address] [place] [address] Referring Pulmonary Disease 10/04/21 Nina Grigsby MD [address] [place] [address] [place] [address] Physician Hematology/Oncology 10/25/21 Patricia Miller, TOWER EXCAVATOR OPERATOR.FOUNTAIN CLERK [address] [place] [address] [place] [address] Nurse Practitioner Hematology/Oncology 10/25/21 Denita Rai, KERRY [address] [facility] [place] [address] Specialty Structural Draftsman Hematology/Oncology 10/25/21 Minna Madrigal LSW Doubler Helper 01/08/23 Estella Fish, TOWER EXCAVATOR OPERATOR.FOUNTAIN CLERK [address] [place] [address] [place] [address] HOSPICE & PALLIATIVE MEDICINE 05/22/23 Julieth Tapia RN Specialty Structural Draftsman HOSPICE & PALLIATIVE MEDICINE 05/22/23 Drapery Seamstress Relationship Specialty Start Date End Date Christina Azul MD [address] [place] [address] PCP - General Family Medicine 07/03/21 Sofie Diana MD [address] [place] [address] Primary Staff Physician Cardiology 07/03/21 Verito Whelan MD [address] [place] [address] Referring Pulmonary Disease 10/04/21 Nina Grigsby MD [address] [place] [address] [place] [address] Physician Hematology/Oncology 10/25/21 Patricia Miller, TOWER EXCAVATOR OPERATOR.FOUNTAIN CLERK [address] [place] [address] [place] [address] Nurse Practitioner Hematology/Oncology 10/25/21 Denita Rai, KERRY [address] [facility] [address] Specialty Structural Draftsman Hematology/Oncology 10/25/21 Minna Madrigal LSW Doubler Helper 01/08/23 Estella Fish, TOWER EXCAVATOR OPERATOR.FOUNTAIN CLERK [address] [facility] [place] [address] HOSPICE & PALLIATIVE MEDICINE 05/22/23 Julieth Tapia RN Specialty Structural Draftsman HOSPICE & PALLIATIVE MEDICINE 05/22/23 Drapery Seamstress Relationship Specialty Start Date End Date Christina Azul MD [address] [place] [address] PCP - General Family Medicine 07/03/21 Sofie Diana MD [address] [place] [address] Primary Staff Physician Cardiology 07/03/21 Verito Whelan MD [address] [place] [address] Referring Pulmonary Disease 10/04/21 Nina Grigsby MD [address] [place] [address] [place] [address] Physician Hematology/Oncology 10/25/21 Patricia Miller, TOWER EXCAVATOR OPERATOR.FOUNTAIN CLERK [address] [place] [address] [place] [address] Nurse Practitioner Hematology/Oncology 10/25/21 Denita Rai, KERRY [address] [facility] [address] Specialty Structural Draftsman Hematology/Oncology 10/25/21 Minna Madrigal LSW Doubler Helper 01/08/23 Estella Fish, TOWER EXCAVATOR OPERATOR.FOUNTAIN CLERK [address] [place] [address] [place] [address] HOSPICE & PALLIATIVE MEDICINE 05/22/23 Julieth Tapia, RN Specialty Structural Draftsman HOSPICE & PALLIATIVE MEDICINE 05/22/23 Drapery Seamstress Relationship Specialty Start Date End Date Christina Azul MD [address] [place] [address] PCP - General Family Medicine 07/03/21 Sofie Diana MD [address] [place] [address] Primary Staff Physician Cardiology 07/03/21 Verito Whelan MD [address] [place], [place] [phone] Referring Pulmonary Disease 10/04/21 Nina Grigsby MD [address] [place] [address] [place] [address] Physician Hematology/Oncology 10/25/21 Patricia Miller, OZZIE.FOUNTAIN CLERK [address] [place] [address] [place] [address] Nurse Practitioner Hematology/Oncology 10/25/21 Denita Rai, KERRY [address] [facility] [place] [address] Specialty Structural Draftsman Hematology/Oncology 10/25/21 Minna Madrigal LSW Doubler Helper 01/08/23 Estella Fish, TOWER EXCAVATOR OPERATOR.FOUNTAIN CLERK [address] [facility] [place] [address] HOSPICE & PALLIATIVE MEDICINE 05/22/23 Julieth Tapia RN Specialty Structural Draftsman HOSPICE & PALLIATIVE MEDICINE 05/22/23 Drapery Seamstress Relationship Specialty Start Date End Date Christina Azul MD [address] [facility] [place] [address] PCP - General Family Medicine 07/03/21 Sofie Diana MD [address] [place], [place] [id number] Primary Staff Physician Cardiology 07/03/21 Verito Whelan MD [address] [place], [place] [id number] Referring Pulmonary Disease 10/04/21 Nina Grigsby MD [address] [facility] [place] [address] Physician Hematology/Oncology 10/25/21 Patricia Miller, TOWER EXCAVATOR OPERATOR.FOUNTAIN CLERK [address] [facility] [place] [address] Nurse Practitioner Hematology/Oncology 10/25/21 Denita Rai, KERRY [address] [facility] [place] [address] Specialty Structural Draftsman Hematology/Oncology 10/25/21 Minna Madrigal LSW Doubler Helper 01/08/23 Estella Fish, TOWER EXCAVATOR OPERATOR.FOUNTAIN CLERK [address] [facility] [place] [address] HOSPICE & PALLIATIVE MEDICINE 05/22/23 Julieth Tapia RN Specialty Structural Draftsman HOSPICE & PALLIATIVE MEDICINE 05/22/23 Drapery Seamstress Relationship Specialty Start Date End Date Christina Azul MD [address] [place], [place] [id number] PCP - General Family Medicine 07/03/21 Sofie Diana MD [address] [place] [address] Primary Staff Physician Cardiology 07/03/21 Verito Whelan MD [address] [place], [place] [id number] Referring Pulmonary Disease 10/04/21 Nina Grigsby MD [address] [place] [address] [place] [address] Physician Hematology/Oncology 10/25/21 Patricia Miller, TOWER EXCAVATOR OPERATOR.FOUNTAIN CLERK [address] [place] [address] [place] [address] Nurse Practitioner Hematology/Oncology 10/25/21 Denita Rai, KERRY [address] [place] [address] [place] [address] Specialty Structural Draftsman Hematology/Oncology 10/25/21 Minna Madrigal LSW Doubler Helper 01/08/23 Estella Fish, TOWER EXCAVATOR OPERATOR.FOUNTAIN CLERK [address] [place] [address] [place] [address] HOSPICE & PALLIATIVE MEDICINE 05/22/23 Julieth Tapia, RN Specialty Structural Draftsman HOSPICE & PALLIATIVE MEDICINE 05/22/23 Drapery Seamstress Relationship Specialty Start Date End Date Enrique Esposito, TOWER EXCAVATOR OPERATOR.FOUNTAIN CLERK [address] [place] [address] PCP - General 08/15/23 Sofie Diana MD [address] [place] [address] Primary Staff Physician Cardiology 07/03/21 Verito Whelan MD [address] [place], [place] [id number] Referring Pulmonary Disease 10/04/21 Nina Grigsby MD [address] [place] [address] [place] [address] Physician Hematology/Oncology 10/25/21 Patricia Miller, TOWER EXCAVATOR OPERATOR.FOUNTAIN CLERK [address] [place] [address] [place] [address] Nurse Practitioner Hematology/Oncology 10/25/21 Denita Rai, KERRY [address] [place] [address] [place] [address] Specialty Structural Draftsman Hematology/Oncology 10/25/21 Minna Madrigal LSW Doubler Helper 01/08/23 Estella Fish, TOWER EXCAVATOR OPERATOR.FOUNTAIN CLERK [address] [place] [address] [place] [address] Hospice & Palliative Medicine 05/22/23 Julieth Tapia RN Specialty Structural Draftsman Hospice & Palliative Medicine 05/22/23 Drapery Seamstress Relationship Specialty Start Date End Date Enrique Esposito, TOWER EXCAVATOR OPERATOR.FOUNTAIN CLERK [address] [place] [address] PCP - General 08/15/23 Sofie Diana MD [address] [place] [address] Primary Staff Physician Cardiology 07/03/21 Verito [place] MD [address] [place], [place] [id number] Referring Pulmonary Disease 10/04/21 Nina Grigsby MD [address] [place] [address] [place] [address] Physician Hematology/Oncology 10/25/21 Patricia Miller, TOWER EXCAVATOR OPERATOR.FOUNTAIN CLERK [address] [place] [address] [place] [address] Nurse Practitioner Hematology/Oncology 10/25/21 Denita Rai, EKRRY [address] [place] [address] [place] [address] Specialty Structural Draftsman Hematology/Oncology 10/25/21 Minna Madrigal LSW Doubler Helper 01/08/23 Estella Fish, TOWER EXCAVATOR OPERATOR.FOUNTAIN CLERK [address] [place] [address] [place] [address] Hospice & Palliative Medicine 05/22/23 Julieth Tapia, RN Specialty Structural Draftsman Hospice & Palliative Medicine 05/22/23 Drapery Seamstress Relationship Specialty Start Date End Date Enrique Esposito, TOWER EXCAVATOR OPERATOR.FOUNTAIN CLERK [address] [place] [address] [id number] PCP - General 08/15/23 Sofie Diana MD [address] [place], [place] [id number] Primary Staff Physician Cardiology 07/03/21 Verito [place] MD [address] [place], [place] 8618395 Referring Pulmonary Disease 10/04/21 Nina Grigsby MD [address] [place] [address] [place] [address] Physician Hematology/Oncology 10/25/21 Patricia Miller, TOWER EXCAVATOR OPERATOR.FOUNTAIN CLERK [address] [facility] [place] [address] Nurse Practitioner Hematology/Oncology 10/25/21 Denita Rai, KERRY [address] [place] [address] [place] [address] Specialty Structural Draftsman Hematology/Oncology 10/25/21 Minna Madrigal LSW Doubler Helper 01/08/23 Estella Fish, TOWER EXCAVATOR OPERATOR.FOUNTAIN CLERK [address] [place] [address] [place] [address] Hospice & Palliative Medicine 05/22/23 Julieth Tapia, KERRY Specialty Structural Draftsman Hospice & Palliative Medicine 05/22/23 Drapery Seamstress Relationship Specialty Start Date End Date Enrique Esposito, TOWER EXCAVATOR OPERATOR.FOUNTAIN CLERK [address] [place] [address] PCP - General 08/15/23 Sofie Diana MD [address] [place], [place] [id number] Primary Staff Physician Cardiology 07/03/21 Verito [place]helan MD [address] [place], [place] [id number] Referring Pulmonary Disease 10/04/21 Nina Grigsby MD [address] [place] [address] [place] [address] Physician Hematology/Oncology 10/25/21 Patricia Miller, TOWER EXCAVATOR OPERATOR.FOUNTAIN CLERK [address] [place] [address] [place] [address] Nurse Practitioner Hematology/Oncology 10/25/21 Denita Rai, RN [address] [facility] [place] [address] Specialty Structural Draftsman Hematology/Oncology 10/25/21 Minna Madrigal LSW Doubler Helper 01/08/23 Estella Fish, TOWER EXCAVATOR OPERATOR.FOUNTAIN CLERK [address] [place] [address] [place] [address] Hospice & Palliative Medicine 05/22/23 Julieth Tapia RN Specialty Structural Draftsman Hospice & Palliative Medicine 05/22/23 Drapery Seamstress Relationship Specialty Start Date End Date Enrique Esposito, TOWER EXCAVATOR OPERATOR.FOUNTAIN CLERK [address] [place] [address] PCP - General 08/15/23 Sofie Diana MD [address] [place] [address] Primary Staff Physician Cardiology 07/03/21 Verito Whelan MD [address] [place] [phone] Referring Pulmonary Disease 10/04/21 Nina Grigsby MD [address] [place] [address] [place] [address] Physician Hematology/Oncology 10/25/21 Patricia Miller, TOWER EXCAVATOR OPERATOR.FOUNTAIN CLERK [address] [place] [address] [address] [place], [place] [id number] Nurse Practitioner Hematology/Oncology 10/25/21 Denita Rai, KERRY [address] [facility] [place] [address] Specialty Structural Draftsman Hematology/Oncology 10/25/21 Minna Madrigal LSW Doubler Helper 01/08/23 Estella Fish, TOWER EXCAVATOR OPERATOR.FOUNTAIN CLERK [address] [place] [address] [place] [address] Hospice & Palliative Medicine 05/22/23 Julieth Tapia RN Specialty Structural Draftsman Hospice & Palliative Medicine 05/22/23 Drapery Seamstress Relationship Specialty Start Date End Date Enrique Esposito, TOWER EXCAVATOR OPERATOR.FOUNTAIN CLERK [address] [place] [address] PCP - General 08/15/23 Sofie Diana MD [address] [place] [address] Primary Staff Physician Cardiology 07/03/21 Verito Whelan MD [address] [place] [address] Referring Pulmonary Disease 10/04/21 Nina Grigsby MD [address] [place] [address] [place] [address] Physician Hematology/Oncology 10/25/21 Patricia Miller, TOWER EXCAVATOR OPERATOR.FOUNTAIN CLERK [address] [place] [address] [place] [address] Nurse Practitioner Hematology/Oncology 10/25/21 Denita Rai, KERRY [address] [facility] [place] [address] Specialty Structural Draftsman Hematology/Oncology 10/25/21 Minna Madrigal LSW Doubler Helper 01/08/23 Estella Fish, TOWER EXCAVATOR OPERATOR.FOUNTAIN CLERK [address] [facility] [place] [address] Hospice & Palliative Medicine 05/22/23 Julieth Tapia RN Specialty Structural Draftsman Hospice & Palliative Medicine 05/22/23 Drapery Seamstress Relationship Specialty Start Date End Date Enrique Esposito, TOWER EXCAVATOR OPERATOR.FOUNTAIN CLERK [address] [place] [address] PCP - General 08/15/23 Sofie Diana MD [address] [place], [place] [id number] Primary Staff Physician Cardiology 07/03/21 Verito Whelan MD [address] [place] [address] Referring Pulmonary Disease 10/04/21 Nina Grigsby MD [address] [place] [address] [place] [address] Physician Hematology/Oncology 10/25/21 Patricia Miller, TOWER EXCAVATOR OPERATOR.FOUNTAIN CLERK [address] [place] [address] [place] [address] Nurse Practitioner Hematology/Oncology 10/25/21 Denita Rai, KERRY [address] [facility] [place] [address] Specialty Structural Draftsman Hematology/Oncology 10/25/21 Minna Madrigal, MARGARET Doubler Helper 01/08/23 Estella Fish, TOWER EXCAVATOR OPERATOR.FOUNTAIN CLERK [address] [place] [address] [place] [address] Hospice & Palliative Medicine 05/22/23 Julieth Tapia, RN Specialty Structural Draftsman Hospice & Palliative Medicine 05/22/23 Drapery Seamstress Relationship Specialty Start Date End Date Enrique Esposito, TOWER EXCAVATOR OPERATOR.FOUNTAIN CLERK [address] [place] [address] PCP - General 08/15/23 Sofie Diana MD [address] [place], [place] [id number] Primary Staff Physician Cardiology 07/03/21 Verito Whelan MD [address] [place], [place] [phone] Referring Pulmonary Disease 10/04/21 Nina Grigsby MD [address] [place] [address] [place] [address] Physician Hematology/Oncology 10/25/21 Patricia Miller, TOWER EXCAVATOR OPERATOR.FOUNTAIN CLERK [address] [place] [address] [place] [address] Nurse Practitioner Hematology/Oncology 10/25/21 Denita Rai, KERRY [address] [facility] [address] [place], [place] 8302970 Specialty Structural Draftsman Hematology/Oncology 10/25/21 Minna Madrigal LSW Doubler Helper 01/08/23 Estella Fish, TOWER EXCAVATOR OPERATOR.FOUNTAIN CLERK [address] [facility] [place] [address] Hospice & Palliative Medicine 05/22/23 Julieth Tapia, RN Specialty Structural Draftsman Hospice & Palliative Medicine 05/22/23 Drapery Seamstress Relationship Specialty Start Date End Date Enrique Esposito, TOWER EXCAVATOR OPERATOR.FOUNTAIN CLERK [address] [place] [address] PCP - General 08/15/23 Sofie Diana MD [address] [place], [place] [id number] Primary Staff Physician Cardiology 07/03/21 Verito Whelan MD [address] [place], [place] [phone] Referring Pulmonary Disease 10/04/21 Nina Grigsby MD [address] [facility] [place] [address] Physician Hematology/Oncology 10/25/21 Patricia Miller, TOWER EXCAVATOR OPERATOR.FOUNTAIN CLERK [address] [facility] [place] [address] Nurse Practitioner Hematology/Oncology 10/25/21 Denita Rai, KERRY [address] [facility] [place] [address] Specialty Structural Draftsman Hematology/Oncology 10/25/21 Minna Madrigal LSW Doubler Helper 01/08/23 Estella Fish, TOWER EXCAVATOR OPERATOR.FOUNTAIN CLERK [address] [place] [address] Hospice & Palliative Medicine 05/22/23 Julieth Tapia, RN Specialty Structural Draftsman Hospice & Palliative Medicine 05/22/23 Drapery Seamstress Relationship Specialty Start Date End Date Enrique Esposito, TOWER EXCAVATOR OPERATOR.FOUNTAIN CLERK [address] [place] [address] [id number] PCP - General 08/15/23 Sofie Diana MD [address] [place], [place] [id number] Primary Staff Physician Cardiology 07/03/21 Verito Whelan MD [address] [place], [place] [id number] Referring Pulmonary Disease 10/04/21 Nina Grigsby MD [address] [address] [place] [address] Physician Hematology/Oncology 10/25/21 Patricia Miller, TOWER EXCAVATOR OPERATOR.FOUNTAIN CLERK [address] [facility] [place] [address] Nurse Practitioner Hematology/Oncology 10/25/21 Denita Rai, KERRY [address] [facility] [place] [address] Specialty Structural Draftsman Hematology/Oncology 10/25/21 Minna Madrigal LSW Doubler Helper 01/08/23 Estella Fish, TOWER EXCAVATOR OPERATOR.FOUNTAIN CLERK [address] [facility] [place] [address] Hospice & Palliative Medicine 05/22/23 Julieth Tapia, RN Specialty Structural Draftsman Hospice & Palliative Medicine 05/22/23 Drapery Seamstress Relationship Specialty Start Date End Date Enrique Esposito, TOWER EXCAVATOR OPERATOR.FOUNTAIN CLERK [address] [place] [address] PCP - General 08/15/23 Sofie Diana MD [address] [place], [place] [id number] Primary Staff Physician Cardiology 07/03/21 Verito Whelan MD [address] [place], [place] [phone] Referring Pulmonary Disease 10/04/21 Nina Grigsby MD [address] [place] [address] [place] [address] Physician Hematology/Oncology 10/25/21 Patricia Miller, TOWER EXCAVATOR OPERATOR.FOUNTAIN CLERK [address] [place] [address] [place] [address] Nurse Practitioner Hematology/Oncology 10/25/21 Denita Rai, KERRY [address] [place] [address] [place] [address] Specialty Structural Draftsman Hematology/Oncology 10/25/21 Minna Madrigal LSW Doubler Helper 01/08/23 Estella Fish, TOWER EXCAVATOR OPERATOR.FOUNTAIN CLERK [address] [place] [address] [place] [address] Hospice & Palliative Medicine 05/22/23 Julieth Tapia, RN Specialty Structural Draftsman Hospice & Palliative Medicine 05/22/23 Drapery Seamstress Relationship Specialty Start Date End Date Enrique Esposito, TOWER EXCAVATOR OPERATOR.FOUNTAIN CLERK [address] [place] [address] PCP - General 08/15/23 Sofie Diana MD [address] [place] [address] Primary Staff Physician Cardiology 07/03/21 Verito Whelan MD [address] [place] [address] Referring Pulmonary Disease 10/04/21 Nina Grigsby MD [address] [place] [address] [place] [address] Physician Hematology/Oncology 10/25/21 Patricia Miller, TOWER EXCAVATOR OPERATOR.FOUNTAIN CLERK [address] [place] [address] [place] [address] Nurse Practitioner Hematology/Oncology 10/25/21 Denita Rai, KERRY [address] [place] [address] [place] [address] Specialty Structural Draftsman Hematology/Oncology 10/25/21 Minna Madrigal LSW Doubler Helper 01/08/23 Estella Fish, TOWER EXCAVATOR OPERATOR.FOUNTAIN CLERK [address] [place] [address] [place] [address] Hospice & Palliative Medicine 05/22/23 Julieth Tapia, RN Specialty Structural Draftsman Hospice & Palliative Medicine 05/22/23 Drapery Seamstress Relationship Specialty Start Date End Date Enrique Esposito, TOWER EXCAVATOR OPERATOR.FOUNTAIN CLERK [address] [place] [address] PCP - General 08/15/23 Sofie Diana MD [address] [place], [place] [phone] Primary Staff Physician Cardiology 07/03/21 Verito Whelan MD [address] [place], [place] [id number] Referring Pulmonary Disease 10/04/21 Nina Grigsby MD [address] [place] [address] [place] [address] Physician Hematology/Oncology 10/25/21 Patricia Miller, TOWER EXCAVATOR OPERATOR.FOUNTAIN CLERK [address] [place] [address] [place] [address] Nurse Practitioner Hematology/Oncology 10/25/21 Denita Rai, KERRY [address] [place] [address] [place] [address] Specialty Structural Draftsman Hematology/Oncology 10/25/21 Minna Madrigal LSW Doubler Helper 01/08/23 Estella Fish, TOWER EXCAVATOR OPERATOR.FOUNTAIN CLERK [address] [place] [address] [place] [address] Hospice & Palliative Medicine 05/22/23 Julieth Tapia RN Specialty Structural Draftsman Hospice & Palliative Medicine 05/22/23 Drapery Seamstress Relationship Specialty Start Date End Date Enrique Esposito, TOWER EXCAVATOR OPERATOR.FOUNTAIN CLERK [address] [place] [address] PCP - General 08/15/23 Sofie Diana MD [address] [place] [address] Primary Staff Physician Cardiology 07/03/21 Verito Whelan MD [address] [place] [address] Referring Pulmonary Disease 10/04/21 Nina Grigsby MD [address] [place] [address] [place] [address] Physician Hematology/Oncology 10/25/21 Patricia Miller, TOWER EXCAVATOR OPERATOR.FOUNTAIN CLERK [address] [place] [address] [address] [place], [place] [id number] Nurse Practitioner Hematology/Oncology 10/25/21 Denita Rai, RN [address] [facility] [place] [address] Specialty Structural Draftsman Hematology/Oncology 10/25/21 Minna Madrigal LSW Doubler Helper 01/08/23 Estella Fish, TOWER EXCAVATOR OPERATOR.FOUNTAIN CLERK [address] [place] [address] [place] [address] Hospice & Palliative Medicine 05/22/23 Julieth Tapia RN Specialty Structural Draftsman Hospice & Palliative Medicine 05/22/23 Drapery Seamstress Relationship Specialty Start Date End Date Enrique Esposito, TOWER EXCAVATOR OPERATOR.FOUNTAIN CLERK [address] [place] [address] PCP - General 08/15/23 Sofie Diana MD [address] [place], [place] [id number] Primary Staff Physician Cardiology 07/03/21 Verito Whelan MD [address] [place], [place] [id number] Referring Pulmonary Disease 10/04/21 Nina Grigsby MD [address] [place] [address] [place] [address] Physician Hematology/Oncology 10/25/21 Patricia Miller, TOWER EXCAVATOR OPERATOR.FOUNTAIN CLERK [address] [place] [address] [place] [address] Nurse Practitioner Hematology/Oncology 10/25/21 Denita Rai, KERRY [address] [facility] [address] Specialty Structural Draftsman Hematology/Oncology 10/25/21 Minna Madrigal LSW Doubler Helper 01/08/23 Estella Fish, TOWER EXCAVATOR OPERATOR.FOUNTAIN CLERK [address] [place] [address] [place] [address] Hospice & Palliative Medicine 05/22/23 Julieth Tapia RN Specialty Structural Draftsman Hospice & Palliative Medicine 05/22/23 Drapery Seamstress Relationship Specialty Start Date End Date Enrique Esposito, TOWER EXCAVATOR OPERATOR.FOUNTAIN CLERK [address] [place] [address] PCP - General 08/15/23 Sofie Diana MD [address] [place], [place] [id number] Primary Staff Physician Cardiology 07/03/21 Verito Whelan MD [address] [place] [address] Referring Pulmonary Disease 10/04/21 Nina Grigsby MD [address] [place] [address] [place] [address] Physician Hematology/Oncology 10/25/21 Patricia Miller, TOWER EXCAVATOR OPERATOR.FOUNTAIN CLERK [address] [place] [address] [place] [address] Nurse Practitioner Hematology/Oncology 10/25/21 Denita Rai, KERRY [address] [facility] [address] Specialty Structural Draftsman Hematology/Oncology 10/25/21 Minna Madrigal LSW Doubler Helper 01/08/23 Estella Fsih, TOWER EXCAVATOR OPERATOR.FOUNTAIN CLERK [address] [place] [address] [place] [phone] Hospice & Palliative Medicine 05/22/23 Julieth Tapia, RN Specialty Structural Draftsman Hospice & Palliative Medicine 05/22/23 Drapery Seamstress Relationship Specialty Start Date End Date Enrique Esposito, TOWER EXCAVATOR OPERATOR.FOUNTAIN CLERK [address] [place] [address] PCP - General 08/15/23 Sofie Diana MD [address] [place], [place] [phone] Primary Staff Physician Cardiology 07/03/21 Verito Whelan MD [address] [place], [place] [phone] Referring Pulmonary Disease 10/04/21 Nina Grigsby MD [address] [place] [address] [place] [address] Physician Hematology/Oncology 10/25/21 Patricia Miller, TOWER EXCAVATOR OPERATOR.FOUNTAIN CLERK [address] [place] [address] [place] [address] Nurse Practitioner Hematology/Oncology 10/25/21 Denita Rai, KERRY [address] [place] [address] [place] [address] Specialty Structural Draftsman Hematology/Oncology 10/25/21 Minna Madrigal, MARGARET Doubler Helper 01/08/23 Estella Fish, TOWER EXCAVATOR OPERATOR.FOUNTAIN CLERK [address] [place] [address] [place] [address] Hospice & Palliative Medicine 05/22/23 Julieth Tapia, RN Specialty Structural Draftsman Hospice & Palliative Medicine 05/22/23 Drapery Seamstress Relationship Specialty Start Date End Date Enrique Esposito, TOWER EXCAVATOR OPERATOR.FOUNTAIN CLERK [address] [place] [address] PCP - General 08/15/23 Sofie Diana MD [address] [place] [address] Primary Staff Physician Cardiology 07/03/21 Verito Whelan MD [address] [place], [place] [phone] Referring Pulmonary Disease 10/04/21 Nina Grigsby MD [address] [place] [address] [place] [address] Physician Hematology/Oncology 10/25/21 Patricia Miller, TOWER EXCAVATOR OPERATOR.FOUNTAIN CLERK [address] [place] [address] [place] [address] Nurse Practitioner Hematology/Oncology 10/25/21 Denita Rai, KERRY [address] [place] [address] [place] [address] Specialty Structural Draftsman Hematology/Oncology 10/25/21 Minna Madrigal LSW Doubler Helper 01/08/23 Estella Fish, TOWER EXCAVATOR OPERATOR.FOUNTAIN CLERK [address] [place] [address] [place] [address] Hospice & Palliative Medicine 05/22/23 Julieth Tapia RN Specialty Structural Draftsman Hospice & Palliative Medicine 05/22/23 Drapery Seamstress Relationship Specialty Start Date End Date Enrique Esposito, TOWER EXCAVATOR OPERATOR.FOUNTAIN CLERK [address] [place] [address] [phone] PCP - General 08/15/23 Sofie Diana MD [address] [place], [place] [phone] Primary Staff Physician Cardiology 07/03/21 Verito Whelan MD [address] [place], [place] [phone] Referring Pulmonary Disease 10/04/21 Nina Grigsby MD [address] [place] [address] [place] [address] Physician Hematology/Oncology 10/25/21 Patricia Miller, TOWER EXCAVATOR OPERATOR.FOUNTAIN CLERK [address] [place] [address] [place] [address] Nurse Practitioner Hematology/Oncology 10/25/21 Denita Rai, KERRY [address] [facility] [address] Specialty Structural Draftsman Hematology/Oncology 10/25/21 Minna Madrigal LSW Doubler Helper 01/08/23 Estella Fish, TOWER EXCAVATOR OPERATOR.FOUNTAIN CLERK [address] [facility] [place] [address] Hospice & Palliative Medicine 05/22/23 Julieth Tapia, RN Specialty Structural Draftsman Hospice & Palliative Medicine 05/22/23 Drapery Seamstress Relationship Specialty Start Date End Date Enrique Esposito, TOWER EXCAVATOR OPERATOR.FOUNTAIN CLERK [address] [place] [address] [phone] PCP - General 08/15/23 Sofie Diana MD [address] [place] [address] Primary Staff Physician Cardiology 07/03/21 Verito Whelan MD [address] [place] [address] Referring Pulmonary Disease 10/04/21 Nina Grigsby MD [address] [facility] [place] [address] Physician Hematology/Oncology 10/25/21 Patricia Miller, TOWER EXCAVATOR OPERATOR.FOUNTAIN CLERK [address] [facility] [place] [address] Nurse Practitioner Hematology/Oncology 10/25/21 Denita Rai, KERRY [address] [facility] [place] [address] Specialty Structural Draftsman Hematology/Oncology 10/25/21 Minna Madrigal LSW Doubler Helper 01/08/23 Estella Fish, TOWER EXCAVATOR OPERATOR.FOUNTAIN CLERK [address] [facility] [place] [address] Hospice & Palliative Medicine 05/22/23 Julieth Tapia, RN Specialty Structural Draftsman Hospice & Palliative Medicine 05/22/23 Drapery Seamstress Relationship Specialty Start Date End Date Enrique Esposito, TOWER EXCAVATOR OPERATOR.FOUNTAIN CLERK [address] [place] [address] PCP - General 08/15/23 Sofie Diana MD [address] [place] [address] Primary Staff Physician Cardiology 07/03/21 Verito Whelan MD [address] [place] [address] Referring Pulmonary Disease 10/04/21 Nina Grigsby MD [address] [place] [address] [place] [address] Physician Hematology/Oncology 10/25/21 Patricia Miller, TOWER EXCAVATOR OPERATOR.FOUNTAIN CLERK [address] [place] [address] [place] [address] Nurse Practitioner Hematology/Oncology 10/25/21 Denita Rai, KERRY [address] [facility] [place] [address] Specialty Structural Draftsman Hematology/Oncology 10/25/21 Minna Madrigal LSW Doubler Helper 01/08/23 Estella Fish, TOWER EXCAVATOR OPERATOR.FOUNTAIN CLERK [address] [place] [address] [place] [address] Hospice & Palliative Medicine 05/22/23 Julieth Tapia, RN Specialty Structural Draftsman Hospice & Palliative Medicine 05/22/23 Drapery Seamstress Relationship Specialty Start Date End Date Enrique Esposito, TOWER EXCAVATOR OPERATOR.FOUNTAIN CLERK [address] [place] [address] PCP - General 08/15/23 Sofie Diana MD [address] [place] [address] Primary Staff Physician Cardiology 07/03/21 Verito Whelan MD [address] [place] [id number] Referring Pulmonary Disease 10/04/21 Nina Grigsby MD [address] [place] [address] [place] [address] Physician Hematology/Oncology 10/25/21 Patricia Miller, TOWER EXCAVATOR OPERATOR.FOUNTAIN CLERK [address] [place] [address] [place] [address] Nurse Practitioner Hematology/Oncology 10/25/21 Denita Rai, KERRY [address] [place] [address] [place] [address] Specialty Structural Draftsman Hematology/Oncology 10/25/21 Minna Madrigal LSW Doubler Helper 01/08/23 Estella Fish, TOWER EXCAVATOR OPERATOR.FOUNTAIN CLERK [address] [place] [address] [place] [phone] Hospice & Palliative Medicine 05/22/23 Julieth Tapia, RN Specialty Structural Draftsman Hospice & Palliative Medicine 05/22/23 Drapery Seamstress Relationship Specialty Start Date End Date Enrique Esposito, TOWER EXCAVATOR OPERATOR.FOUNTAIN CLERK [address] [place] [address] PCP - General 08/15/23 Sofie Diana MD [address] [place] [address] Primary Staff Physician Cardiology 07/03/21 Verito Whelan MD [address] [place] [address] Referring Pulmonary Disease 10/04/21 Nina Grigsby MD [address] [place] [address] [place] [address] Physician Hematology/Oncology 10/25/21 Patricia Miller, TOWER EXCAVATOR OPERATOR.FOUNTAIN CLERK [address] [place] [address] [place] [address] Nurse Practitioner Hematology/Oncology 10/25/21 Denita Rai, KERRY [address] [place] [address] [place] [address] Specialty Structural Draftsman Hematology/Oncology 10/25/21 Minna Madrigal LSW Doubler Helper 01/08/23 Estella Fish, TOWER EXCAVATOR OPERATOR.FOUNTAIN CLERK [address] [place] [address] [place] [address] Hospice & Palliative Medicine 05/22/23 Julieth Tapia RN Specialty Structural Draftsman Hospice & Palliative Medicine 05/22/23 Team Status: Active Member Role Status Dates NON STAFF Primary Care Provider Active Team Status: Inactive Member Role Status Dates NON STAFF Primary Care Provider Active Start: February 07, 2024 End: February 07, 2024 John Dominguez MD Emergency Provider Active Star t: February 07, 2024 End: February 07, 2024 Drapery Seamstress Relationship Specialty Start Date End Date Enrique Esposito, TOWER EXCAVATOR OPERATOR.FOUNTAIN CLERK [address] [place] [address] PCP - General 08/15/23 Sofie Diana MD [address] [place] [address] Primary Staff Physician Cardiology 07/03/21 Verito Whelan MD [address] [place] [address] Referring Pulmonary Disease 10/04/21 Nina Grigsby MD [address] [place] [address] [place] [address] Physician Hematology/Oncology 10/25/21 Patricia Miller, TOWER EXCAVATOR OPERATOR.FOUNTAIN CLERK [address] [place] [address] [place] [address] Nurse Practitioner Hematology/Oncology 10/25/21 Denita Rai, KERRY [address] [place] [address] [place] [address] Specialty Structural Draftsman Hematology/Oncology 10/25/21 Minna Madrigal LSW Doubler Helper 01/08/23 Estella Fish, TOWER EXCAVATOR OPERATOR.FOUNTAIN CLERK [address] [place] [address] [place] [address] Hospice & Palliative Medicine 05/22/23 Julieth Tapia RN Specialty Structural Draftsman Hospice & Palliative Medicine 05/22/23 Drapery Seamstress Relationship Specialty Start Date End Date Enrique Esposito, TOWER EXCAVATOR OPERATOR.FOUNTAIN CLERK [address] [place] [address] PCP - General 08/15/23 Sofie Diana MD [address] [place], [place] [phone] Primary Staff Physician Cardiology 07/03/21 Verito Whelan MD [address] [place], [place] [phone] Referring Pulmonary Disease 10/04/21 Nina Grigsby MD [address] [place] [address] [place] [address] Physician Hematology/Oncology 10/25/21 Patricia Miller, TOWER EXCAVATOR OPERATOR.FOUNTAIN CLERK [address] [place] [address] [place] [address] Nurse Practitioner Hematology/Oncology 10/25/21 Denita Rai, RN [address] [place] [address] [place] [address] Specialty Structural Draftsman Hematology/Oncology 10/25/21 Minna Madrigal LSW Doubler Helper 01/08/23 Estella Fish, TOWER EXCAVATOR OPERATOR.FOUNTAIN CLERK [address] [place] [address] [place] [address] Hospice & Palliative Medicine 05/22/23 Julieth Tapia RN Specialty Structural Draftsman Hospice & Palliative Medicine 05/22/23 Drapery Seamstress Relationship Specialty Start Date End Date Enrique Esposito, TOWER EXCAVATOR OPERATOR.FOUNTAIN CLERK [address] [place] [address] PCP - General 08/15/23 Sofie Diana MD [address] [place] [address] Primary Staff Physician Cardiology 07/03/21 Verito Whelan MD [address] [place] [address] Referring Pulmonary Disease 10/04/21 Nina Grigsby MD [address] [place] [address] [place] [address] Physician Hematology/Oncology 10/25/21 Patricia Miller, TOWER EXCAVATOR OPERATOR.FOUNTAIN CLERK [address] [place] [address] [address] [place], [place] [id number] Nurse Practitioner Hematology/Oncology 10/25/21 Denita Rai, KERRY [address] [facility] [place] [address] Specialty Structural Draftsman Hematology/Oncology 10/25/21 Minna Madrigal LSW Doubler Helper 01/08/23 Estella Fish, TOWER EXCAVATOR OPERATOR.FOUNTAIN CLERK [address] [place] [address] [place] [address] Hospice & Palliative Medicine 05/22/23 Julieth Tapia RN Specialty Structural Draftsman Hospice & Palliative Medicine 05/22/23 Drapery Seamstress Relationship Specialty Start Date End Date Enrique Esposito, TOWER EXCAVATOR OPERATOR.FOUNTAIN CLERK [address] [place] [address]237 PCP - General 08/15/23 Sofie Diana MD [address] [place], [place] [id number] Primary Staff Physician Cardiology 07/03/21 Verito Whelan MD [address] [place], [place] [phone] Referring Pulmonary Disease 10/04/21 Nina Grigsby MD [address] [place] [address] [place] [address] Physician Hematology/Oncology 10/25/21 Patricia Miller, TOWER EXCAVATOR OPERATOR.FOUNTAIN CLERK [address] [place] [address] [place] [address] Nurse Practitioner Hematology/Oncology 10/25/21 Denita Rai, KERRY [address] [facility] [place] [address] Specialty Structural Draftsman Hematology/Oncology 10/25/21 Minna Madrigal, ELEVATOR CONDUCTOR Doubler Helper 01/08/23 Estella Fish, TOWER EXCAVATOR OPERATOR.FOUNTAIN CLERK [address] [facility] [place] [address] Hospice & Palliative Medicine 05/22/23 Julieth Tapia RN Specialty Structural Draftsman Hospice & Palliative Medicine 05/22/23 Drapery Seamstress Relationship Specialty Start Date End Date Enrique Esposito, TOWER EXCAVATOR OPERATOR.FOUNTAIN CLERK [address] [place] [address]92 PCP - General 08/15/23 Sofie Diana MD [address] [place], [place] [phone] Primary Staff Physician Cardiology 07/03/21 Verito Whelan MD [address] [place] [address] Referring Pulmonary Disease 10/04/21 Nina Grigsby MD [address] [place] [address] [place] [address] Physician Hematology/Oncology 10/25/21 Patricia Miller, TOWER EXCAVATOR OPERATOR.FOUNTAIN CLERK [address] [place] [address] [place] [address] Nurse Practitioner Hematology/Oncology 10/25/21 Denita Rai, KERRY [address] [facility] [place] [address] Specialty Structural Draftsman Hematology/Oncology 10/25/21 Minna Madrigal, ELEVATOR CONDUCTOR Doubler Helper 01/08/23 Estella Fish, TOWER EXCAVATOR OPERATOR.FOUNTAIN CLERK [address] [place] [address] [place] [phone] Hospice & Palliative Medicine 05/22/23 Julieth Tapia, RN Specialty Structural Draftsman Hospice & Palliative Medicine 05/22/23 Drapery Seamstress Relationship Specialty Start Date End Date Enrique Esposito, TOWER EXCAVATOR OPERATOR.FOUNTAIN CLERK [address] [place] [address]6750 PCP - General 08/15/23 Sofie Diana MD [address] [place], [place] [phone] Primary Staff Physician Cardiology 07/03/21 Verito Whelan MD [address] [place], [place] [phone] Referring Pulmonary Disease 10/04/21 Nina Grigsby MD [address] [place] [address] [place] [address] Physician Hematology/Oncology 10/25/21 Patricia Miller, TOWER EXCAVATOR OPERATOR.FOUNTAIN CLERK [address] [place] [address] [place] [address] Nurse Practitioner Hematology/Oncology 10/25/21 Denita Rai, KERRY [address] [place] [address] [address] [place], [place] [phone] Specialty Structural Draftsman Hematology/Oncology 10/25/21 Minna Madrigal LSW Doubler Helper 01/08/23 Estella Fish, TOWER EXCAVATOR OPERATOR.FOUNTAIN CLERK [address] [facility] [place] [phone] Hospice & Palliative Medicine 05/22/23 Julieth Tapia RN Specialty Structural Draftsman Hospice & Palliative Medicine 05/22/23 Drapery Seamstress Relationship Specialty Start Date End Date Enrique Esposito, TOWER EXCAVATOR OPERATOR.FOUNTAIN CLERK [address] [place] [address] PCP - General 08/15/23 Sofie Diana MD [address] [place], [place] [id number] Primary Staff Physician Cardiology 07/03/21 Verito Whelan MD [address] [place], [place] [phone] Referring Pulmonary Disease 10/04/21 Nina Grigsby MD [address] [facility] [place] [address] Physician Hematology/Oncology 10/25/21 Patricia Miller, TOWER EXCAVATOR OPERATOR.FOUNTAIN CLERK [address] [facility] [place] [address] Nurse Practitioner Hematology/Oncology 10/25/21 Denita Rai, KERRY [address] [facility] [place] [address] Specialty Structural Draftsman Hematology/Oncology 10/25/21 Minna Madrigal LSW Doubler Helper 01/08/23 Estella Fish, TOWER EXCAVATOR OPERATOR.FOUNTAIN CLERK [address] [facility] [place] [address] Hospice & Palliative Medicine 05/22/23 Julieth Tapia RN Specialty Structural Draftsman Hospice & Palliative Medicine 05/22/23 Drapery Seamstress Relationship Specialty Start Date End Date Enrique Esposito, TOWER EXCAVATOR OPERATOR.FOUNTAIN CLERK [address] [place] [address] [phone] PCP - General 08/15/23 Sofie Diana MD [address] [place], [place] [phone] Primary Staff Physician Cardiology 07/03/21 Verito Whelan MD [address] [place], [place] [id number] Referring Pulmonary Disease 10/04/21 Nina Grigsby MD [address] [place] [address] [place] [address] Physician Hematology/Oncology 10/25/21 Patricia Miller, TOWER EXCAVATOR OPERATOR.FOUNTAIN CLERK [address] [place] [address] [place] [address] Nurse Practitioner Hematology/Oncology 10/25/21 Denita Rai, KERRY [address] [place] [address] [place] [address] Specialty Structural Draftsman Hematology/Oncology 10/25/21 Minna Madrigal LSW Doubler Helper 01/08/23 Estella Fish, TOWER EXCAVATOR OPERATOR.FOUNTAIN CLERK [address] [place] [address] [place] [address] Hospice & Palliative Medicine 05/22/23 Julieth Tapia, RN Specialty Structural Draftsman Hospice & Palliative Medicine 05/22/23 Drapery Seamstress Relationship Specialty Start Date End Date Enrique Esposito, TOWER EXCAVATOR OPERATOR.FOUNTAIN CLERK [address] [place] [address]74 PCP - General 08/15/23 Sofie iDana MD [address] [place] [address] Primary Staff Physician Cardiology 07/03/21 Verito Whelan MD [address] [place], [place] [id number] Referring Pulmonary Disease 10/04/21 Nina Grigsby MD [address] [place] [address] [place] [address] Physician Hematology/Oncology 10/25/21 Patricia Miller, TOWER EXCAVATOR OPERATOR.FOUNTAIN CLERK [address] [place] [address] [place] [address] Nurse Practitioner Hematology/Oncology 10/25/21 Denita Rai, KERRY [address] [place] [address] [place] [address] Specialty Structural Draftsman Hematology/Oncology 10/25/21 Minna Madrgial LSW Doubler Helper 01/08/23 Estella Fish, TOWER EXCAVATOR OPERATOR.FOUNTAIN CLERK [address] [place] [address] [place] [address] Hospice & Palliative Medicine 05/22/23 Julieth Tapia RN Specialty Structural Draftsman Hospice & Palliative Medicine 05/22/23 Drapery Seamstress Relationship Specialty Start Date End Date Enrique Esposito, TOWER EXCAVATOR OPERATOR.FOUNTAIN CLERK [address] [place] [address] PCP - General 08/15/23 Sofie Diana MD [address] [place] [address] Primary Staff Physician Cardiology 07/03/21 Verito Whelan MD [address] [place], [place] [id number] Referring Pulmonary Disease 10/04/21 Nina Grigsby MD [address] [place] [address] [place] [address] Physician Hematology/Oncology 10/25/21 Patricia Miller, TOWER EXCAVATOR OPERATOR.FOUNTAIN CLERK [address] [place] [address] [place] [address] Nurse Practitioner Hematology/Oncology 10/25/21 Denita Rai, KERRY [address] [place] [address] [place] [address] Specialty Structural Draftsman Hematology/Oncology 10/25/21 Minna Madrigal LSW Doubler Helper 01/08/23 Estella Fish, TOWER EXCAVATOR OPERATOR.FOUNTAIN CLERK [address] [place] [address] [place] [address] Hospice & Palliative Medicine 05/22/23 Julieth Tapia RN Specialty Structural Draftsman Hospice & Palliative Medicine 05/22/23 Drapery Seamstress Relationship Specialty Start Date End Date Enrique Esposito, TOWER EXCAVATOR OPERATOR.FOUNTAIN CLERK [address] [place] [address] PCP - General 08/15/23 Sofie Diana MD [address] [place], [place] [id number] Primary Staff Physician Cardiology 07/03/21 Verito Whelan MD [address] [place] [address] Referring Pulmonary Disease 10/04/21 Nina Grigsby MD [address] [place] [address] [place] [address] Physician Hematology/Oncology 10/25/21 Patricia Miller, TOWER EXCAVATOR OPERATOR.FOUNTAIN CLERK [address] [place] [address] [place] [address] Nurse Practitioner Hematology/Oncology 10/25/21 Denita Rai, KERRY [address] [place] [address] [place] [address] Specialty Structural Draftsman Hematology/Oncology 10/25/21 Minna Madrigal LSW Doubler Helper 01/08/23 Estella Fish, TOWER EXCAVATOR OPERATOR.FOUNTAIN CLERK [address] [place] [address] [place] [address] Hospice & Palliative Medicine 05/22/23 Julieth Tapia RN Specialty Structural Draftsman Hospice & Palliative Medicine 05/22/23 Drapery Seamstress Relationship Specialty Start Date End Date Enrique Esposito, TOWER EXCAVATOR OPERATOR.FOUNTAIN CLERK [address] [place] [address] PCP - General 08/15/23 Sofie Diana MD [address] [place], [place] [id number] Primary Staff Physician Cardiology 07/03/21 Verito Whelan MD [address] [place], [place] [phone] Referring Pulmonary Disease 10/04/21 Nina Grigsby MD [address] [place] [address] [place] [address] Physician Hematology/Oncology 10/25/21 Patricia Miller, TOWER EXCAVATOR OPERATOR.FOUNTAIN CLERK [address] [place] [address] [place] [address] Nurse Practitioner Hematology/Oncology 10/25/21 Denita Rai, RN [address] [place] [address] [place] [address] Specialty Structural Draftsman Hematology/Oncology 10/25/21 Minna Madrigal LSW Doubler Helper 01/08/23 Estella Fish, TOWER EXCAVATOR OPERATOR.FOUNTAIN CLERK [address] [place] [address] [place] [address] Hospice & Palliative Medicine 05/22/23 Juleith Tapia RN Specialty Structural Draftsman Hospice & Palliative Medicine 05/22/23 Drapery Seamstress Relationship Specialty Start Date End Date Enrique Esposito, TOWER EXCAVATOR OPERATOR.FOUNTAIN CLERK [address] [place] [address] PCP - General 08/15/23 Sofie Diana MD [address] [place] [address] Primary Staff Physician Cardiology 07/03/21 Verito Whelan MD [address] [place] [address] Referring Pulmonary Disease 10/04/21 Nina Grigsby MD [address] [place] [address] [place] [address] Physician Hematology/Oncology 10/25/21 Patricia Miller, TOWER EXCAVATOR OPERATOR.FOUNTAIN CLERK [address] [place] [address] [address] [place], [place] [id number] Nurse Practitioner Hematology/Oncology 10/25/21 Denita Rai, KERRY [address] [place] [address] [place] [address] Specialty Structural Draftsman Hematology/Oncology 10/25/21 Minna Madrigal LSW Doubler Helper 01/08/23 Estella Fish, TOWER EXCAVATOR OPERATOR.FOUNTAIN CLERK [address] [place] [address] [place] [address] Hospice & Palliative Medicine 05/22/23 Julieth Tapia RN Specialty Structural Draftsman Hospice & Palliative Medicine 05/22/23 Team Status: [...] March 19, 2024 End: March 20, 2024 Drapery Seamstress Relationship Specialty Start Date End Date Enrique Esposito, TOWER EXCAVATOR OPERATOR.FOUNTAIN CLERK [address] [place] [address] PCP - General 08/15/23 Sofie Diana MD [address] [place] [address] Primary Staff Physician Cardiology 07/03/21 Verito Whelan MD [address] [facility] [place] [address] Referring Pulmonary Disease 10/04/21 Nina Grigsby MD [address] [place] [address] [place] [address] Physician Hematology/Oncology 10/25/21 Patricia Miller, TOWER EXCAVATOR OPERATOR.FOUNTAIN CLERK [address] [place] [address] [place] [address] Nurse Practitioner Hematology/Oncology 10/25/21 Denita Rai, KERRY [address] [place] [address] [place] [address] Specialty Structural Draftsman Hematology/Oncology 10/25/21 Minna Madrigal LSW Doubler Helper 01/08/23 Estella Fish, TOWER EXCAVATOR OPERATOR.FOUNTAIN CLERK [address] [place] [address] [place] [address] Hospice & Palliative Medicine 05/22/23 Julieth Tapia RN Specialty Structural Draftsman Hospice & Palliative Medicine 05/22/23 Reason for Visit (unrecogniz ed section and content) Reason Comments Pain Specialty Diagnoses / Procedures Referred By Contac t Referred To Contact Hospice & Palliative Medicine / PALLIATIVE MEDICINE Diagnoses 3 month follow up Procedures OFFICE/OUTPATIENT ESTABLISHED HIGH MDM 40 MIN EST PATIENT Estella Fish, TOWER EXCAVATOR OPERATOR.FOUNTAIN CLERK [address] [facility] [place] [address] Estella Fish, TOWER EXCAVATOR OPERATOR.FOUNTAIN CLERK [address] [place] [address] Referral ID Status Reason Start Date Expiration Date V isits Requested Visits Authorized [id number] Authorized 10/29/2023 07/20/2024 99 99 Reason Comments Nutrition Assessment Specialty Diagnoses / Procedures Referred By Contac t Referred To Contact Nutrition / NUTRI SAND Diagnoses Nutri appt Procedures OFFICE/OUTPATIENT ESTABLISHED MOD MDM 30 MIN EST PATIENT Dominiqeu Rudd, RD [address] [place] [address] Referral ID Status Reason Start Date Expiration Date Visits Re quested Visits Authorized [id number] Closed 10/20/2023 07/20/2024 1 1 Reason Comments [...] MDM 10 MIN EST PATIENT CateKarmenronald Beatty, TOWER EXCAVATOR OPERATOR.FOUNTAIN CLERK [address] [place] [address] Nina Grigsby MD [address] [place] [address] [place] [address] Referral ID Status Reason Start Date Expiration Date Visits Re quested Visits Authorized [id number] Closed 09/04/2023 07/20/2024 1 1 Specialty Diagnoses / Procedures Referred By Contac t Referred To Contact Radiation Oncology / RADIATION ONCOLOGY Diagnoses 2 Week Post XRT Procedures EST POST 90 DAY RAD TX Jyoti Limon MD [address] [place] [address] [place] [address] Jyoti Limon MD [address] [place] [address] [place] [address] Referral ID Status Reason Start Date Expiration Date V isits Requested Visits Authorized [id number] Authorized 11/12/2022 07/20/2023 99 99 Specialty Diagnoses / Procedures Referred By Contac t Referred To Contact [facility] CANCER APPTS Diagnoses Malignant neoplasm of upper lobe, left bronchus or lung Procedures REFERRAL TO [facility] FINANCIAL COUNSELOR Nina Grigsby MD [address] [place] [address] [place] [address] [facility] Cancer [address] [place] [address] Referral ID Status Reason Start Date Expiration Date Visits Requested Visits Authorized [id number] Pending Review Financial Clearance Required - OON [...] (HCC) Procedures CONSULT TO ONCOLOGY OFFICE/OUTPATIENT [facility] 60-74 MINUTES Aracelis Carrillo, OZZIE.FOUNTAIN CLERK [address] [place] [address] Referral ID Status Reason Start Date Expiration Date V isits Requested Visits Authorized [id number] Closed PCP Requested Referral 10/11/2021 10/11/2022 1 [...] lung (HCC) Procedures RAD/ONC CONSULT OFFICE/OUTPATIENT [facility] 60-74 MINUTES Nina Grigsby MD [address] [place] [address] [place] [address] Referral ID Status Reason Start Date Expiration Date V isits Requested Visits Authorized [id number] Closed PCP Requested Referral 10/22/2021 10/22/2022 1 1 Reason Comments Lab Orders Specialty Diagnoses / Procedures Referred By Contac t Referred To Contact Diagnoses Malignant neoplasm of upper lobe of left lung (HCC) Procedures PALONOSETRON HCL CISPLATIN 10 MG INJECTION DIPHENHYDRAMINE HCL INJECTIO INJECTION, PEMETREXED, NOT OTHERWISE SPECIFIED, 10 MG Nina Grigsby MD [address] [place] [address] [place] [address] Kristofer Treat Wallace [address] [place] [address] Referral ID Status Reason Start Date Expiration Date V isits Requested Visits Authorized [id number] Authorized 10/22/2021 01/15/2022 4 4 Reason Comments [...] Referred By Ap arteaga Referred To Contact [facility] Diagnoses Malignant neoplasm of upper lobe, left bronchus or lung Procedures REFERRAL TO [facility] FINANCIAL COUNSELOR Nina Grigsby MD [address] [place] [address] [place] [address] [place] [address] Reason Comments Results hypokalemia Reason Comments Spirometry Specialty Diagnoses / Procedures Referred By Ap arteaga Referred To Contact [facility] Diagnoses Chronic obstructive pulmonary disease, unspecified COPD type (HCC) Lung nodule Procedures LUNG DIFFUSION CAPACITY (DLCO) DIFFUSING CAPACITY Verito Whelan MD [address] [place] [address] [facility] [place] [facility] [address] [place] [address] Referral ID Status Reason Start Date Expiration Date V isits Requested Visits Authorized [id number] Closed Auto-Generate d Referral 11/09/2021 10/11/2022 1 1 Specialty Diagnoses / Procedures Referred By Ap Referred To Contact [facility] Diagnoses Chronic obstructive pulmonary disease, unspecified COPD type (HCC) Lung nodule Procedures SPIROMETRY WITH DILATOR IF OBSTRUCTED BRNCDILAT RSPSE SPMTRY PRE&POST-BRNCDILAT ADMN Verito Whelan MD [address] [place] [address] [address] [place] [address] Referral ID Status Reason Start Date Expiration Date V isits Requested Visits Authorized [id number] Closed Auto-Generate d Referral 11/09/2021 10/11/2022 1 [...] left lung (HCC) Nina Grigsby MD [address] [facility] [place] [address] Kristofer Treat [address] [place] [address] Referral ID Status Reason Start Date Expiration Date V isits Requested Visits Authorized [id number] Authorized 10/16/2022 01/14/2023 99 99 Reason Comments [...] DAY RAD TX Jyoti Limon MD [address] [facility] [place] [address] Jyoti Limon MD [address] [place] [address] [place] [address] Reason Comments Lung Cancer Treatment visit Reason [...] W/O W/CONTRAST MATERIAL Renetta Ponce MD [address] [place] [address] [facility] [place] [address] Referral ID Status Reason Start Date Expiration Date V isits Requested Visits Authorized [id number] Closed Auto-Generate d Referral 10/26/2021 11/18/2021 1 1 Reason Comments Follow Up Pet scan results Specialty Diagnoses / Procedures [facility] - Otolaryngology Diagnoses Tonsillar mass Procedures CONSULT TO ENT OFFICE/OUTPATIENT [facility] 60-74 MINUTES Nina Grigsby MD [address] [place] [address] [place] [address] Referral ID Status Reason Start Date Expiration Date V isits Requested Visits Authorized [id number] Closed PCP Requested Referral 05/13/2023 05/12/2024 1 [...] NEW HIGH MDM 60-74 MINUTES Patricia Miller, TOWER EXCAVATOR OPERATOR.FOUNTAIN CLERK [address] [facility] [place] [address] [place] [address] [place] [address] Referral ID Status Reason Start Date Expiration Date V isits Requested Visits Authorized [id number] Closed PCP Requested Referral 05/15/2023 05/14/2024 1 1 Reason Comments Care Coordination TSH Result Reason Comments Nutrition Assessment No show Reason Onset Date Comments Refill Request 10/20/2023 Specialty Diagnoses / Procedures Referred By Contac t Referred To Contact Hematology / HEMATOLOGY/ONCOLOGY Diagnoses Follow-up exam 4 week follow up - Lumakras oral med Procedures OFFICE/OUTPATIENT ESTABLISHED HIGH MDM 40 MIN EST PATIENT nErique Esposito, TOWER EXCAVATOR OPERATOR.FOUNTAIN CLERK [address] [place] [address] Nina Grigsby MD [address] [place] [address] [place] [address] Referral ID Status Reason Start Date Expiration Date V isits Requested Visits Authorized [id number] Authorized 10/20/2023 07/20/2024 99 99 Reason Comments [...] 10 MIN EST PATIENT Enrique Esposito L, TOWER EXCAVATOR OPERATOR.FOUNTAIN CLERK [address] [place] [address] Nina Grigsby MD [address] [place] [address] [place] [address] Reason Comments Care Coordination Call Request Reason Comments Care Coordination Appointments Specialty Diagnoses / Procedures Referred By Contac t Referred To Contact Hospice & Palliative Medicine / PALLIATIVE MEDICINE Diagnoses 3 month follow up Procedures OFFICE/OUTPATIENT ESTABLISHED HIGH MDM 40 MIN EST PATIENT Estella Fish, TOWER EXCAVATOR OPERATOR.FOUNTAIN CLERK [address] [facility] [address] Estella Fish, TOWER EXCAVATOR OPERATOR.FOUNTAIN CLERK [address] [place] [address] Reason Comments Orders Reason Comments Research IRB [id number] Case11 [id number] Informed Consent Reason Onset Date Comments Simulation Request Form 12/02/2023 Consult Specialty Diagnoses / Procedures Referred By Contac t Referred To Contact Radiation Oncology / RADIATION ONCOLOGY Diagnoses New pain Procedures EST PATIENT NEW PROBLEM Pcp, Suellen, Jyoti Magallanes MD [address] [place] [address] [place] [address] Referral ID Status Reason Start Date Expiration Date V isits Requested Visits Authorized [id number] Authorized 12/02/2023 07/20/2024 99 99 Reason Comments [...] RI NEW LUNG CANCER Nina Grigsby MD [address] [place] [address] [place] [address] [place] [address] [place] [address] Referral ID Status Reason Start Date Expiration Date Visits Re quested Visits Authorized [id number] Closed 02/20/2024 07/20/2024 1 1 Specialty Diagnoses [...] MDM 10 MIN EST PATIENT Enrique Esposito, TOWER EXCAVATOR OPERATOR.FOUNTAIN CLERK [address] [place] [address] Nina Grigsby MD [address] [facility] [place] [address] Reason Comments Radiology NM Specialty Diagnoses / Procedures Referred By Contac t Referred To Contact MOLECULAR & FUNCTIONAL IMAGING Diagnoses 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 Swelling of arm Cancer associated pain Procedures NM PET/CT SKULL-THIGH SUBSEQUENT PET IMAGING CT ATTENUATION SKULL BASE MID-THIGH Yusef Pandya, AMRITA [address] [facility] [place] [address] Molecular & Functional Imaging [address] [place] [id number] Referral ID Status Reason Start Date Expiration Date V isits Requested Visits Authorized [id number] Closed Auto-Generate d Referral 02/03/2024 03/04/2025 1 [...] BE BASED ON THE PRIMARY CLINICAL RECORDS. [facility]. provides no warranty or guarantee of the accuracy or completeness of information in this document.
[2024-03-28 08:43] LABS: Lactate/Lactic Acid 2.5 mmol/L (0.4-2.0)
[2024-03-28 10:05] LABS: ABG PCO2 36.4 mmHg (35.0-45.0); pH ABG 7.382 (7.350-7.450)
[2024-03-28 10:06] LABS: Allen Test POSITIVE (POSITIVE); Base Excess ABG -3.5 mmol/L (-2.0-2.0); HCO3 ABG 21.6 mmol/L (22.0-26.0); O2 Mode Nasal Cannula; PO2 ABG 82.9 mmHg (80.0-100.0)
[2024-03-28 10:07] LABS: Puncture Site R. Radial
[2024-03-28] MEDS: METOPROLOL TARTRATE 50 MG TABLET PO ×2 (10:16→21:20)
[2024-03-28] MEDS: ISOSORBIDE MONONITRATE 30 MG TAB.ER.24H PO (10:16)
[2024-03-28] MEDS: LACTATED RINGER'S SOLUTION 1,000 ML 125 ML IV ×2 (10:16→19:39)
[2024-03-28] MEDS: CILOSTAZOL 100 MG TABLET PO ×2 (10:16→21:20)
[2024-03-28] MEDS: CLOPIDOGREL BISULFATE 75 MG TABLET PO (10:16)
[2024-03-28] MEDS: VENLAFAXINE HCL ER 37.5 MG CAPSULE PO (10:16)
[2024-03-28 11:00] LABS: Glucometer 151 mg/dL (74-106)
[2024-03-28] MEDS: VANCOMYCIN HCL 750 MG in 0.9 % SODIUM CHLORIDE 250 ML 250 MG IV ×2 (11:45→23:47)
--- NOTE | 2024-03-28 11:45 | PM.HP ---
HPI H&P: HPI History of Present Illness Chief complaint: SOB MASS TONGUE ACUTE INFECTION EXACERBATION OF CH Narrative: 69 y o male with known hx of metastatic lung cancer currently undergoing treatment for it, presented to ED with worsening SOB, cough/wheezing for past 1 week. Found to have increased work of breathing, was using accessory muscles of respiration and hypoxic with pulse Ox down to 75% on arrival. W/u in ED revealed acute resp failure with hypoxia sec to COPD exacerbation, suspected bacterial PNA and multiple small b/l PE on CTA. Admitted as inpatient and started on IV heparin/solumedrol and was given Rocephin/azithromycin in ED to treat for CAP. Patient seen earlier today, noted to be tachypneic, lethargic and intermittently confused, with audible wheezing throughout. ABG ordered to r/o hypercapnic resp failure - no evidence of hypercapnia. Hypoxia improved from admission but still on 4 L O2 via NC. Started patient on Eliquis. d/c heparin drip for PE. Will treat with broad spectrum abx for CAP as immunosuppressed due to current treatment with chemo. Patient started on Solumedrol, along with duonebs q4 and as needed. Will need close inpatient monitoring and is at high risk of treatment failure/poor prognosis due to his comorbidities and underlying immunosuppression. Opioid HPI Opioid Management Most Recent Pain and Opioid Data: Last Pain Assessment 03/28/24 10:00 Review of Systems ROS Status of ROS 10 or more systems reviewed and unremarkable except as noted in history and below [facility] Medical History (Updated 03/28/24 @ 12:00 by Shaikh Marium MD) HLD (hyperlipidemia) ?E78.5 - Hyperlipidemia, unspecified (ICD-10) COPD (chronic obstructive pulmonary disease) ?J44.9 - Chronic obstructive pulmonary disease, unspecified (ICD-10) Metastatic non-small cell lung cancer ?C34.90 - Malignant neoplasm of unspecified part of unspecified bronchus or lung (ICD-10) History of pulmonary embolism ?Z86.711 - Personal history of pulmonary embolism (ICD-10) CAD (coronary artery disease) ?I25.10 - Atherosclerotic heart disease of [place] coronary artery without angina pectoris (ICD-10) PAD (peripheral artery disease) ?I73.9 - Peripheral vascular disease, unspecified (ICD-10) Surgical History (Updated 03/28/24 @ 11:54 by Shaikh Marium MD) H/O pneumonectomy ?Z98.890 - Other specified postprocedural states (ICD-10) ?Z90.2 - Acquired absence of lung [part of] (ICD-10) Hx of CABG ?Z95.1 - Presence of aortocoronary bypass graft (ICD-10) Social History (Updated 03/28/24 @ 11:55 by Shaikh Mairum MD) Within the past year, how often did you have a drink containing alcohol: monthly or less Within the past year, how many standard drinks containing alcohol did you have on a typical day: 1 or 2 Within the past year, how often did you have six or more drinks on one occasion: never Total score: 0 Score interpretation: A score less than 4 is consistent with normal alcohol consumption. Smoking status: Former smoker Non-prescribed substance use: denies use Meds Home Medications and Allergies Home Medications ?Medication ?Instructions ?Recorded ?Confirmed ?Type atorvastatin 40 mg tablet 40 mg PO DAILY 07/05/23 03/28/24 History cilostazol 100 mg tablet 100 mg PO BID 07/05/23 03/28/24 History clopidogrel 75 mg tablet 75 mg PO DAILY 07/05/23 03/28/24 History isosorbide mononitrate 30 mg 30 mg PO DAILY 07/05/23 03/28/24 History tablet,extended release 24 hr metoprolol tartrate 25 mg tablet 50 mg PO Q12H 07/05/23 03/28/24 History sotorasib 320 mg tablet (Lumakras) 960 mg PO Q24H 07/05/23 03/28/24 History albuterol sulfate 90 mcg/actuation 2 puff inhalation Q4H PRN 03/28/24 03/28/24 History aerosol inhaler shortness of breath or wheezing fentanyl 100 mcg/hr transdermal 1 patch topical Q72H 03/28/24 03/28/24 History patch gabapentin 100 mg capsule 100 mg PO TID 03/28/24 03/28/24 History olanzapine 10 mg tablet 10 mg PO .QHS 03/28/24 03/28/24 History venlafaxine 37.5 mg 37.5 mg PO .QD 03/28/24 03/28/24 History capsule,extended release 24 hr Allergies Allergy/AdvReac Type Severity Reaction Status Date / Time No Known Drug Allergies Allergy Verified 02/20/24 20:09 Exam Constitutional Vital Signs, click to edit/add: Last Vital Signs Temp 98.9 F 03/28/24 07:30 Pulse 96 H 03/28/24 10:12 Resp 24 H 03/28/24 07:30 BP 135/79 03/28/24 07:30 Pulse Ox 97 03/28/24 10:14 O2 Del Method Nasal Cannula 03/28/24 10:14 O2 Flow Rate 4 03/28/24 10:14 General appearance: in distress mild (appears short of breath ), lethargic, ill appearing and frail appearing Nutritional appearance: thin HENMT Common normals: normocephalic and head/scalp atraumatic Respiratory Effort & inspection: tachypneic, uses accessory muscles (using accessory neck muscles of respiration ) and audible wheezes Auscultation: wheezes throughout and diminished lung sounds Other: Appears short of breath at rest. Unable to carry on conversation Cardio Common normals: no JVD Rate: regular rate Rhythm: regular rhythm GI Common normals: Normal to inspection, nondistended, normoactive bowel sounds present, soft to palpation and non-tender Extremity Common normals: normal to inspection and full ROM Neuro Common normals: moves all extremities and no focal motor deficits Sensorium/orientation: lethargic and fluctuating sensorium Other: Intermittent confusion Psych Common normals: denies homicidal ideation and denies suicidal ideation Appearance: grossly normal Attitude: calm Results Labs Labs: Short CBC 03/28/24 Range/Units 03:30 WBC 6.9 (4.0-11.0) 10^3/uL Hgb 12.2 L (14.0-18.0) g/dL Hct 36.9 L (42.0-54.0) % Plt Count 229 (150-450) 10^3/uL BMP 03/28/24 03:30 Sodium 135 L Potassium 4.0 Chloride 100 Carbon Dioxide 27.5 BUN 45.0 H Creatinine 1.31 H Glucose 147 H Calcium 9.2 ABG ABG results: 03/28/24 09:50 ABG pH 7.382 ABG pCO2 36.4 ABG pO2 82.9 ABG HCO3 21.6 L ABG O2 Saturation 97.0 ABG Base Excess -3.5 L Assessment and Plan Assessment and Plan (1) Acute respiratory failure with hypoxia: Assessment and Plan: Presented with hypoxia (pulse Ox 75% initially) , required 6 L O2. Now down to 4 L Via NC. Still quite dyspneic, with increased work of breathing. Multifactorial and sec to PE, COPD exacerbation and bacterial PNA. Wean of O2 as tolerated. Treat underlying etiology as discussed separately. (2) Acute infective exacerbation of chronic obstructive airway disease: Assessment and Plan: Severe COPD, does not use O2 aat home. Started on IV solumedrol, duonebs, OPEP. Monitor resp status closely. (3) Pulmonary emboli: Assessment and Plan: Provoked, due to lung cancer. No hemodynamic compromise and evidence of right heart strain. Initially started on heparin drip, switched to oral eliquis. Qualifiers: Pulmonary embolism type: multiple subsegmental (without acute cor pulmonale) Qualified Code(s): I26.94 - Multiple subsegmental pulmonary emboli without acute cor pulmonale (4) Pneumonia: Assessment and Plan: CAPbut high risk of MRSA/Pseudomonas due to current immunse suppression. Started on Vanco/zosyn F/u sputum/blood cx. Qualifiers: Pneumonia type: due to unspecified organism Laterality: right Lung location: unspecified part of lung Qualified Code(s): J18.9 - Pneumonia, unspecified organism (5) Metastatic non-small cell lung cancer: Assessment and Plan: Currently on chemo. Poor prognosis. (6) CAD (coronary artery disease): Assessment and Plan: No evidence of active cardiac ischemia. Monitor. Qualifiers: Coronary Disease-Associated Artery/Lesion type: [place] artery [place] vs. transplanted heart: [place] heart Associated angina: without angina Qualified Code(s): I25.10 - Atherosclerotic heart disease of [place] coronary artery without angina pectoris (7) PAD (peripheral artery disease): Assessment and Plan: On plavix/cilostazol. C/w same (8) HLD (hyperlipidemia): Assessment and Plan: C/w lipitor. Qualifiers: Hyperlipidemia type: unspecified Qualified Code(s): E78.5 - Hyperlipidemia, unspecified
[2024-03-28] MEDS: PIPERACILLIN SODIUM/TAZOBACTAM 3.375 GM in 0.9 % SODIUM CHLORIDE 50 ML IV ×2 (13:00→21:20)
[2024-03-28] MEDS: GABAPENTIN 100 MG CAPSULE PO ×2 (13:13→21:20)
[2024-03-28] MEDS: METHYLPREDNISOLONE SOD SUCC PF 40 MG/ML VIAL IVP ×2 (13:13→21:24)
[2024-03-28 16:06] LABS: Glucometer 130 mg/dL (74-106)
[2024-03-28 21:16] LABS: Glucometer 162 mg/dL (74-106)
[2024-03-28] MEDS: INSULIN ASPART 300 UNIT/3 ML PEN SUBQ (21:20)
[2024-03-28] MEDS: OLANZapine 5 MG TABLET 10 MG PO (21:20)
[2024-03-29] VITALS (21 sets, daily range): BP systolic 139–146; BP diastolic 64–88; PULSE 92–124; TEMP 36.5–36.8; O2SAT 84–96
[2024-03-29] MEDS: IPRATROPIUM/ALBUTEROL SULFATE 3 ML AMPUL.NEB IH ×4 (03:56→22:32)
[2024-03-29] MEDS: PIPERACILLIN SODIUM/TAZOBACTAM 3.375 GM in 0.9 % SODIUM CHLORIDE 50 ML IV ×3 (05:11→21:08)
[2024-03-29] MEDS: METHYLPREDNISOLONE SOD SUCC PF 40 MG/ML VIAL IVP ×3 (05:16→21:08)
[2024-03-29] MEDS: GABAPENTIN 100 MG CAPSULE PO ×3 (05:16→21:08)
[2024-03-29 05:29] LABS: Hematocrit 28.7 % (42.0-54.0); Hemoglobin 9.5 g/dL (14.0-18.0); Mean Corpuscular HGB Conc 33.1 g/dL (29.9-35.2); Mean Corpuscular Hemoglobin 30.7 pg (25.9-34.0); Mean Corpuscular Volume 92.9 fL (80.0-94.0); Platelet Count 177 10^3/uL (150-450); Red Blood Count 3.09 10^6/uL (4.70-6.10); Red Cell Distribution Width 13.3 % (11.0-15.0); White Blood Count 9.9 10^3/uL (4.0-11.0)
[2024-03-29 05:49] LABS: Alanine Aminotransferase 27 U/L (16-63); Albumin Globulin Ratio 0.7; Albumin Level 2.3 g/dL (3.4-5.0); Alkaline Phosphatase 40 U/L (46-116); Anion Gap 15.9; Aspartate Amino Transferase 11 U/L (15-37); BUN Creatinine Ratio 23.6; Band Neutrophils Absolute 0.6 10^3/uL (0.0-0.3); Bilirubin Total 0.8 mg/dL (0.2-1.0); Calcium 8.8 mg/dL (8.5-10.1); Carbon Dioxide 23.3 mmol/L (21.0-32.0); Chloride 104 mmol/L (98-107); Estimated GFR (African America >60 (>=60); Estimated GFR (Non-African Ame >60 (>=60); Globulin 3.4 g/dL; Glucose 167 mg/dL (74-106); Potassium 3.2 mmol/L (3.5-5.1); Segmented Neut Absolute Manual 8.81 10^3/uL (1.4-6.5); Sodium 140 mmol/L (136-145); Total Protein 5.7 g/dL (6.4-8.2)
[2024-03-29 05:50] LABS: Lymphocytes Absolute Manual 0.29 10^3/uL (1.20-3.80); Monocytes Absolute Manual 0.19 10^3/uL (0.30-0.80)
--- NOTE | 2024-03-29 07:54 | RESP.RT ---
titrated down to 1L
--- NOTE | 2024-03-29 08:58 | P.IMPN_ITS ---
Progress Note: A&P Assessment and Plan (1) Acute respiratory failure with hypoxia: Assessment and Plan: Improving gradually. On 2 L O2 now (2) Acute infective exacerbation of chronic obstructive airway disease: Assessment and Plan: Improved air entry and wheezing has improved too. C/w solumedrol/duonebs. (3) Pulmonary emboli: Assessment and Plan: On Eliquis. Tolerating it. Provoked PE due to hx of lung cancer. Qualifiers: Pulmonary embolism type: multiple subsegmental (without acute cor pulmonale) Qualified Code(s): I26.94 - Multiple subsegmental pulmonary emboli without acute cor pulmonale (4) Pneumonia: Assessment and Plan: Treating for resistant organism due to underlying hx of immunosuppression/pneumonectomy/severe COPD and lung cancer. Qualifiers: Laterality: right Lung location: unspecified part of lung Pneumonia type: due to unspecified organism Qualified Code(s): J18.9 - Pneumonia, unspecified organism (5) Metastatic non-small cell lung cancer: Assessment and Plan: F/u with oncology as outpatient once medically stable. (6) CAD (coronary artery disease): Assessment and Plan: No evidence of active cardiac ischemia. Qualifiers: Coronary Disease-Associated Artery/Lesion type: [place] artery [place] vs. transplanted heart: [place] heart Associated angina: without angina Qualified Code(s): I25.10 - Atherosclerotic heart disease of [place] coronary artery without angina pectoris (7) PAD (peripheral artery disease): Assessment and Plan: C/w home medications. Stable. (8) HLD (hyperlipidemia): Assessment and Plan: C/w statin. Qualifiers: Hyperlipidemia type: unspecified Qualified Code(s): E78.5 - Hyperlipidemia, unspecified (9) Lactic acidosis: Assessment and Plan: resolved. Good PO intake now. Stop IVF. Internal Medicine - PN: Subj Subjective Interval history: Seen and examined. Doing better but still quite short of breath on minimal exertion. Patient now on 2 L O2via NC. No overnight events. Exam Constitutional Vital Signs, click to edit/add: Last Vital Signs Temp 97.8 F 03/29/24 08:20 Pulse 92 H 03/29/24 08:20 Resp 18 03/29/24 08:21 BP 141/88 03/29/24 08:20 Pulse Ox 93 L 03/29/24 08:20 O2 Del Method Nasal Cannula 03/29/24 08:20 O2 Flow Rate 2 03/29/24 08:20 General appearance: lethargic, ill appearing and frail appearing Nutritional appearance: thin Respiratory Common normals: no use of accessory muscles Effort & inspection: able to speak in complete sentences and tachypneic Auscultation: wheezes expiratory wheezes Cardio Common normals: no JVD Rate: regular rate Rhythm: regular rhythm Extremity Common normals: normal to inspection and full ROM Neuro Common normals: moves all extremities and no focal motor deficits Sensorium/orientation: lethargic and fluctuating sensorium Other: Intermittent confusion Psych Common normals: denies homicidal ideation and denies suicidal ideation Appearance: grossly normal Attitude: calm Internal Medicine - PN: Obj Da Labs Labs: Laboratory Results - last 24 hr 03/28/24 03/28/24 03/28/24 09:50 10:59 16:05 WBC RBC Hgb Hct MCV MCH MCHC RDW Plt Count MPV Seg Neuts % (Manual) Band Neutrophils % Lymphocytes % (Manual) Monocytes % (Manual) Eosinophils % (Manual) Basophils % (Manual) Neutrophils # (Manual) Band Neutrophils # Lymphocytes # (Manual) Monocytes # (Manual) Eosinophils # (Manual) Basophils # (Manual) Puncture Site R. radial ABG pH 7.382 ABG pCO2 36.4 ABG pO2 82.9 ABG HCO3 21.6 L ABG O2 Saturation 97.0 ABG Base Excess -3.5 L Ralph Test Positive Sodium Potassium Chloride Carbon Dioxide Anion Gap BUN Creatinine Est GFR ( Amer) Est GFR (Non-Af Amer) BUN/Creatinine Ratio Glucose Calcium Total Bilirubin AST ALT Alkaline Phosphatase Total Protein Albumin Globulin Albumin/Globulin Ratio POC Glucose 151 H 130 H 03/28/24 03/29/24 21:15 05:13 WBC 9.9 RBC 3.09 L Hgb 9.5 L Hct 28.7 L MCV 92.9 MCH 30.7 MCHC 33.1 RDW 13.3 Plt Count 177 MPV 11.0 Seg Neuts % (Manual) 89.0 H Band Neutrophils % 6.0 H Lymphocytes % (Manual) 3.0 L Monocytes % (Manual) 2.0 Eosinophils % (Manual) 0.0 L Basophils % (Manual) 0.0 L Neutrophils # (Manual) 8.81 H Band Neutrophils # 0.6 H Lymphocytes # (Manual) 0.29 L Monocytes # (Manual) 0.19 L Eosinophils # (Manual) 0.00 Basophils # (Manual) 0.00 Puncture Site ABG pH ABG pCO2 ABG pO2 ABG HCO3 ABG O2 Saturation ABG Base Excess Ralph Test Sodium 140 Potassium 3.2 L Chloride 104 Carbon Dioxide 23.3 Anion Gap 15.9 BUN 25.0 H Creatinine 1.06 Est GFR ( Amer) >60 Est GFR (Non-Af Amer) >60 BUN/Creatinine Ratio 23.6 Glucose 167 H Calcium 8.8 Total Bilirubin 0.8 AST 11 L ALT 27 Alkaline Phosphatase 40 L Total Protein 5.7 L Albumin 2.3 L Globulin 3.4 Albumin/Globulin Ratio 0.7 POC Glucose 162 H
[2024-03-29] MEDS: INSULIN ASPART 300 UNIT/3 ML PEN SUBQ ×3 (09:15→21:16)
[2024-03-29] MEDS: POTASSIUM CHLORIDE 10 MEQ ER TABLET 40 MEQ PO (09:20)
[2024-03-29] MEDS: ISOSORBIDE MONONITRATE 30 MG TAB.ER.24H PO (09:20)
[2024-03-29] MEDS: VENLAFAXINE HCL ER 37.5 MG CAPSULE PO (09:20)
[2024-03-29] MEDS: CLOPIDOGREL BISULFATE 75 MG TABLET PO (09:20)
[2024-03-29] MEDS: CILOSTAZOL 100 MG TABLET PO ×2 (09:20→21:08)
[2024-03-29] MEDS: METOPROLOL TARTRATE 50 MG TABLET PO ×2 (09:23→21:08)
[2024-03-29] MEDS: ALPRAZOLAM 0.5 MG TABLET PO ×2 (09:29→21:08)
--- NOTE | 2024-03-29 09:46 | PC.NURSE ---
100 mcg fentanyl patch wasted. Rn witnessed waste.
[2024-03-29] MEDS: FENTANYL 50 MCG/HR PATCH.TD72 100 MCG TD (09:47)
--- NOTE | 2024-03-29 10:02 | PC.NURSE ---
[employer] witnessed a Fentanyl patch 100mcg waste with SHUKRI Mandujano.
[2024-03-29 11:14] LABS: Glucometer 319 mg/dL (74-106)
[2024-03-29] MEDS: VANCOMYCIN HCL 750 MG in 0.9 % SODIUM CHLORIDE 250 ML 250 MG IV ×2 (11:20→23:52)
--- NOTE | 2024-03-29 11:48 | CM.NOTE ---
Rounds made with Dr. Causey, pt continues to require oxygen. No discharge today. Pt may need home oxygen at discharge.
--- NOTE | 2024-03-29 11:59 | CM.NOTE ---
Important Message From Medicare discussed with pt, pt verbalizes understanding and signs paper. Original given to pt and copy placed in pt's chart.
--- NOTE | 2024-03-29 12:32 | SWNOTE1 ---
SW spoke with case management and pt has 3 kids that help pt as needed. He does not wear home oxygen, but is on it here at hospital. SW to follow as needed. SW did see that PT recommended home health, SW to see if pt would like home health services.
--- NOTE | 2024-03-29 13:19 | SWNOTE1 ---
SW saw that PT recommended home health. SW spoke with pt about home health and his living situations. He voiced that he has 3 kids in the home with him, his youngest being 17 years old. They do help him as needed. Pt does not use any DME in the home. SW asked pt about home health. At this time pt is refusing. He stated he has had them in the past and they did not help. He voiced he does not want home health at this time. SW to follow as needed.
--- NOTE | 2024-03-29 16:02 | RESP.RT ---
Addendum entered by Stacy Herzog, EVALUATION ANALYST 03/29/24 16:06: Added humiity Original Note: Increased to 4L
[2024-03-29 16:30] LABS: Glucometer 90 mg/dL (74-106)
[2024-03-29 20:55] LABS: Glucometer 278 mg/dL (74-106)
[2024-03-29] MEDS: ATORVASTATIN CALCIUM 40 MG TABLET PO (21:08)
[2024-03-29] MEDS: OLANZapine 5 MG TABLET 10 MG PO (21:08)
[2024-03-30] VITALS (13 sets, daily range): BP systolic 131–145; BP diastolic 70–74; PULSE 87–172; TEMP 36.4–36.6; O2SAT 77–95
[2024-03-30] MEDS: OXYCODONE HCL 5 MG TABLET PO (03:23)
[2024-03-30] MEDS: PIPERACILLIN SODIUM/TAZOBACTAM 3.375 GM in 0.9 % SODIUM CHLORIDE 50 ML IV (05:30)
[2024-03-30] MEDS: METHYLPREDNISOLONE SOD SUCC PF 40 MG/ML VIAL IVP (05:30)
[2024-03-30] MEDS: GABAPENTIN 100 MG CAPSULE PO (05:30)
[2024-03-30 06:26] LABS: Hematocrit 33.5 % (42.0-54.0); Hemoglobin 10.7 g/dL (14.0-18.0); Mean Corpuscular HGB Conc 31.9 g/dL (29.9-35.2); Mean Corpuscular Hemoglobin 30.3 pg (25.9-34.0); Mean Corpuscular Volume 94.9 fL (80.0-94.0); Mean Platelet Volume 10.9 fL (9.5-13.5); Platelet Count 185 10^3/uL (150-450); Red Blood Count 3.53 10^6/uL (4.70-6.10); Red Cell Distribution Width 13.6 % (11.0-15.0); White Blood Count 12.4 10^3/uL (4.0-11.0)
[2024-03-30 07:00] LABS: Alanine Aminotransferase 24 U/L (16-63); Albumin Globulin Ratio 0.5; Albumin Level 2.4 g/dL (3.4-5.0); Alkaline Phosphatase 42 U/L (46-116); Anion Gap 13.6; Aspartate Amino Transferase 10 U/L (15-37); BUN Creatinine Ratio 21.3; Bilirubin Total 0.7 mg/dL (0.2-1.0); Calcium 9.2 mg/dL (8.5-10.1); Carbon Dioxide 26.1 mmol/L (21.0-32.0); Chloride 102 mmol/L (98-107); Estimated GFR (African America >60 (>=60); Estimated GFR (Non-African Ame 59 (>=60); Globulin 4.5 g/dL; Glucose 137 mg/dL (74-106); Potassium 3.7 mmol/L (3.5-5.1); Sodium 138 mmol/L (136-145); Total Protein 6.9 g/dL (6.4-8.2)
[2024-03-30 07:13] LABS: Band Neutrophils Absolute 0.6 10^3/uL (0.0-0.3); Lymphocytes Absolute Manual 0.12 10^3/uL (1.20-3.80); Monocytes Absolute Manual 0.74 10^3/uL (0.30-0.80); Segmented Neut Absolute Manual 10.91 10^3/uL (1.4-6.5)
[2024-03-30] MEDS: IPRATROPIUM/ALBUTEROL SULFATE 3 ML AMPUL.NEB IH (07:27)
[2024-03-30 07:47] LABS: Glucometer 161 mg/dL (74-106)
[2024-03-30] MEDS: CLOPIDOGREL BISULFATE 75 MG TABLET PO (09:48)
[2024-03-30] MEDS: METOPROLOL TARTRATE 50 MG TABLET PO (09:48)
[2024-03-30] MEDS: CILOSTAZOL 100 MG TABLET PO (09:48)
[2024-03-30] MEDS: ISOSORBIDE MONONITRATE 30 MG TAB.ER.24H PO (09:48)
[2024-03-30] MEDS: VENLAFAXINE HCL ER 37.5 MG CAPSULE PO (09:49)
--- NOTE | 2024-03-30 10:12 | CM.NOTE ---
Rounds made with Dr. Causey. Plan for discharge today to home with home oxygen. Mr. Rojoter in agreement. Follow up with Family physician within a week.
--- NOTE | 2024-03-30 10:22 | SWNOTE1 ---
Pt will need home oxygen. He told case management that he has used [facility] in past, which is now [facility]. SW to send referral once walk test and documentation is complete.
--- NOTE | 2024-03-30 10:32 | SWNOTE1 ---
[facility] has a phone wait time of 16 minutes, [facility] and we have tanks here for pt to take home.
--- NOTE | 2024-03-30 10:35 | P.DS_ITS ---
DS: Providers Provider Date of admission: 03/28/24 07:19 Primary care physician: SABINA DIETRICH Admitting clinician: Shaikh Marium Attending physician on admission: Shaikh Marium Consults: 03/28/24 Consult to Dietitian Routine Reason for consultation: weight loss 03/28/24 09:36 Occupational Therapy Eval and Treat Routine Reason for consultation: Ambulatory dysfunction/weakness Physical Therapy Eval and Treat Routine Reason for consultation: Ambulatory dysfunction/weakness Attending physician on discharge: Shaikh Marium Discharging clinician: Shaikh Marium Anticipated date of discharge: 03/30/24 DS: Diagnosis Discharge Diagnosis (1) Acute respiratory failure with hypoxia: Assessment and plan: Improved. Still on 2 L O2. Will d/c on home O2. (2) Acute infective exacerbation of chronic obstructive airway disease: Assessment and plan: Improved. Denies SOB. No wheezing. Stable for discharge on prednisone taper. (3) Pulmonary emboli: Assessment and plan: Provoked PE. Stable for d/c on Eliquis. Qualifiers: Pulmonary embolism type: multiple subsegmental (without acute cor pulmonale) Qualified Code(s): I26.94 - Multiple subsegmental pulmonary emboli without acute cor pulmonale (4) Pneumonia: Assessment and plan: Will d/c on Levaquin. cx negative so far. Qualifiers: Laterality: right Lung location: unspecified part of lung Pneumonia type: due to unspecified organism Qualified Code(s): J18.9 - Pneumonia, unspecified organism (5) Metastatic non-small cell lung cancer: Assessment and plan: f/u with oncology (6) CAD (coronary artery disease): Assessment and plan: Stable c/w home medications. Qualifiers: Coronary Disease-Associated Artery/Lesion type: [place] artery [place] vs. transplanted heart: [place] heart Associated angina: without angina Qu alified Code(s): I25.10 - Atherosclerotic heart disease of [place] coronary artery without angina pectoris (7) PAD (peripheral artery disease): Assessment and plan: Stable. (8) HLD (hyperlipidemia): Assessment and plan: C/w statin Qualifiers: Hyperlipidemia type: unspecified Qualified Code(s): E78.5 - Hyperlipidemia, unspecified (9) Lactic acidosis: Assessment and plan: Due to hypoxia/pneumonia. DS: Summary Hospital Course Hospital Course: 69 y o male with known hx of metastatic lung cancer presented to ED with worsening SOB, cough/wheezing for 1 week. W/u in ED revealed acute resp failure with hypoxia sec to COPD exacerbation, bacterial PNA and multiple small b/l PE on CTA. Initially started on IV heparin drip for PE but subsequently changed to Eliquis. Patient was also started on IV solumedrol/inhaled duonebs for COPD exacerbation. Patient was treated for CAP with broad spectrum abx due to underlying immunosupression but his cx are negative. He improved clinically during the course of admission and feels well today. He is still requiring O2 and will need a 6 m in walk test for O2 eligibility. Will d/c on oral Levaquin for bacterial PNA, oral eliquis for PE and prednisone taper to help with COPD exacerbation. Status at Discharge Functional status at discharge: independent ambulation Overall status at discharge: patient is back to baseline Time Spent with Patient Time attestation: Total time spent providing and/or coordinating discharge services: Time spent: greater than 30 minutes Exam Constitutional Vital Signs, click to edit/add: Last Vital Signs Temp 97.9 F 03/30/24 03:39 Pulse 112 H 03/30/24 10:00 Resp 16 03/30/24 07:30 BP 131/74 03/30/24 03:39 Pulse Ox 92 L 03/30/24 07:30 O2 Del Method Nasal Cannula 03/30/24 07:30 O2 Flow Rate 3 03/30/24 07:30 General appearance: frail appearing Nutritional appearance: thin Respiratory Common normals: normal respiratory effort, no retractions and no use of accessory muscles Effort & inspection: able to speak in complete sentences Auscultation: diminished lung sounds Cardio Common normals: no JVD Rate: regular rate Rhythm: regular rhythm Extremity Common normals: normal to inspection and full ROM Neuro Common normals: moves all extremities and no focal motor deficits Psych Common normals: denies homicidal ideation and denies suicidal ideation Appearance: grossly normal Attitude: calm DS: Data Data Completed and Pending Labs on day of discharge: Labs from last 24 hours 03/30/24 03/30/24 03/29/24 07:45 06:09 20:54 WBC 12.4 H RBC 3.53 L Hgb 10.7 L Hct 33.5 L MCV 94.9 H MCH 30.3 MCHC 31.9 RDW 13.6 Plt Count 185 MPV 10.9 Seg Neuts % (Manual) 88.0 H Band Neutrophils % 5.0 Lymphocytes % (Manual) 1.0 L Monocytes % (Manual) 6.0 Eosinophils % (Manual) 0.0 L Basophils % (Manual) 0.0 L Neutrophils # (Manual) 10.91 H Band Neutrophils # 0.6 H Lymphocytes # (Manual) 0.12 L Monocytes # (Manual) 0.74 Eosinophils # (Manual) 0.00 Basophils # (Manual) 0.00 Sodium 138 Potassium 3.7 Chloride 102 Carbon Dioxide 26.1 Anion Gap 13.6 BUN 26.0 H Creatinine 1.22 Est GFR ( Amer) >60 Est GFR (Non-Af Amer) 59 L BUN/Creatinine Ratio 21.3 Glucose 137 H Calcium 9.2 Total Bilirubin 0.7 AST 10 L ALT 24 Alkaline Phosphatase 42 L Total Protein 6.9 Albumin 2.4 L Globulin 4.5 Albumin/Globulin Ratio 0.5 POC Glucose 161 H 278 H 03/29/24 03/29/24 16:29 11:13 WBC RBC Hgb Hct MCV MCH MCHC RDW Plt Count MPV Seg Neuts % (Manual) Band Neutrophils % Lymphocytes % (Manual) Monocytes % (Manual) Eosinophils % (Manual) Basophils % (Manual) Neutrophils # (Manual) Band Neutrophils # Lymphocytes # (Manual) Monocytes # (Manual) Eosinophils # (Manual) Basophils # (Manual) Sodium Potassium Chloride Carbon Dioxide Anion Gap BUN Creatinine Est GFR ( Amer) Est GFR (Non-Af Amer) BUN/Creatinine Ratio Glucose Calcium Total Bilirubin AST ALT Alkaline Phosphatase Total Protein Albumin Globulin Albumin/Globulin Ratio POC Glucose 90 319 H Discharge Plan Discharge Disposition: Home, Self-Care Discharge Medications: New levofloxacin 750 mg tablet 750 mg PO DAILY 5 Days Qty: 5 0RF prednisone 20 mg tablet 20 mg PO BID 5 Days Qty: 10 0RF Eliquis 5 mg tablet 5 mg PO BID Qty: 60 0RF Continued atorvastatin 40 mg tablet 40 mg PO DAILY cilostazol 100 mg tablet 100 mg PO BID clopidogrel 75 mg tablet 75 mg PO DAILY isosorbide mononitrate 30 mg tablet extended release 24 hr 30 mg PO DAILY metoprolol tartrate 25 mg tablet 50 mg PO Q12H Lumakras 320 mg tablet 960 mg PO Q24H fentanyl 100 mcg/hr patch 72 hour 1 patch topical Q72H olanzapine 10 mg tablet 10 mg PO .QHS venlafaxine 37.5 mg capsule,extended release 24hr 37.5 mg PO .QD gabapentin 100 mg capsule 100 mg PO TID albuterol sulfate 90 mcg/actuation HFA aerosol inhaler 2 puff INHALATION Q4H PRN (Reason: shortness of breath or wheezing) Activity: increase activity as tolerated Diet: advance to your usual diet Print Language: Vietnamese Forms: Portal Instructions Follow Up Appointments: @ 2pm with Sabina Dietrich NP [phone] F/u with Oncology in 2-3 weeks
--- NOTE | 2024-03-30 10:36 | REH.PTDLY ---
Physical Therapy Daily Note PT Daily Note/Assess Start: 03/30/24 10:30 Freq: Status: Active Protocol: Document 03/30/24 10:31 BA (Rec: 03/30/24 10:36 BA [id number]) Physical Therapy Daily Note/Assessment Time In 09:10 Time Out 09:30 Subjective Pt agreeable to therapy, going home today. Nursing reports pt needs a walk test done. Therapeutic Activity Minutes (minutes) 18 Therapeutic Activity Units 1 Therapeutic Activity Comments Pt Ind with transfers. Utilized ear probe instead of finger as pt has better readings this way. Sitting bedside with no O2 pt is at 86 %. Gait training with no O2 100 feet with O2 sats dropping to 77%. Mild SOB noted. Returned to seated position with O2 rising to 90% after 2 mins. Gait training 125 feet with 3 L of O2 and pt drops to 86%, rises back to 91 percent after 2 mins. Pt states I can't really tell a difference with or without the O2 physically Total Therapy Minutes 18 Total Physical Therapy Units 1 Daily Note Summary Completed walk test with patient today with pt doing well physically with ambulation, no LOB or unsteadiness noted. Mild fatigue and SOB noted by therapist when pt is not wearing O2, however pt does not feel like there was a difference. Possible DC to home today.
--- NOTE | 2024-03-30 10:54 | SWNOTE1 ---
Referral for home oxygen sent to [facility]. Referral included discharge summary, walk test, script, and demographic sheet.
[2024-03-30 11:30] LABS: Glucometer 258 mg/dL (74-106)
[2024-03-30 11:34] LABS: Vancomycin Trough 12.7 ug/mL (5.0-20.0)
[2024-03-30] MEDS: INSULIN ASPART 300 UNIT/3 ML PEN SUBQ (11:55)
--- NOTE | 2024-03-30 12:28 | SWNOTE1 ---
HERNÁN called [facility] and it is ok to send pt home and have them call [facility]. [facility] at [facility] is completing order now. HERNÁN to let nursing know and will take pt a tank.
--- NOTE | 2024-03-30 12:46 | CM.NOTE ---
[facility] tank taken to pt's room. Explained to pt he would need to call [facility] as soon as he arrives home and they will deliver supplies.
--- NOTE | 2024-03-31 15:02 | CM.DCFOLLOWU ---
Person spoke with: Pedro How are you feeling? Feeling better but arm is very swollen from IV, we are here at hospital to get ultrasound to r/o Blood clot How is your pain? Pain in arm with swelling Did you understand your discharge instructions? Yes Do you have any questions about your discharge instructions? No Were you given any prescriptions at discharge? Yes Were you able to get your prescriptions filled? Yes Do you understand how to take your medications as ordered? Yes Do you have any questions about your follow up appointment and do you plan to keep your follow up appointment? Went to f/u appt today and she sent pt to Hospital for ultrasound of arm. Is there anything else that you would like to discuss? No Questions/Comments/Concerns/Other:
== END 2024-03-30 14:20 | disposition home or self-care (01) | DRG 175 ==
LOC: ER 06:09 → MS 07:40
PROVIDERS: Admitting Provider Internal Medicine; Emergency Provider Internal Medicine; PCP Nurse Practitioner; Visit Provider Internal Medicine
DX: I26.94 Multiple subsegmental thrombotic pulmonary emboli without acute cor pulmonale (principal); J18.9 Pneumonia, unspecified organism; J96.01 Acute respiratory failure with hypoxia; J44.0 Chronic obstructive pulmonary disease with (acute) lower respiratory infection; J44.1 Chronic obstructive pulmonary disease with (acute) exacerbation; C34.90 Malignant neoplasm of unspecified part of unspecified bronchus or lung; D84.821 Immunodeficiency due to drugs; E87.20 Acidosis, unspecified; K14.8 Other diseases of tongue; E78.5 Hyperlipidemia, unspecified; I25.10 Atherosclerotic heart disease of native coronary artery without angina pectoris; I73.9 Peripheral vascular disease, unspecified; T45.1X5A Adverse effect of antineoplastic and immunosuppressive drugs, initial encounter; Z95.1 Presence of aortocoronary bypass graft; Z98.890 Other specified postprocedural states; Z90.2 Acquired absence of lung [part of]; Z87.891 Personal history of nicotine dependence; Z79.899 Other long term (current) drug therapy; Z79.02 Long term (current) use of antithrombotics/antiplatelets
CPT/HCPCS: 36415; 36600; 71045; 71275; 80048; 80053; 80202; 82805; 82948; 83605; 84484; 85007; 85025; 85027; 85378; 85610; 85730; 87040; 87070; 87106; 93005; 94640; 94761; 96365; 96366; 96367; 96368; 96375; 96376; 97161; 97165; 97530; 99285; J0456; J0696; J1644; J2543; J2919; J3370; Q9967

== ENCOUNTER 2024-03-30 22:31 | Emergency (ER) | payer MEDICARE, MEDICAID, SELFPAY ==
[2024-03-30 22:40] VITALS: BP 173/95; PULSE 122; TEMP 37; O2SAT 92; BMI 20.4
--- OUTSIDE RECORDS SUMMARY | 2024-03-30 22:42 | XMS_ITS | CCD ---
Author Organization [facility] CliniSyal Care Team Providers Care Journeyman Carpenter Name Role Phone UNKNOWN, PROVIDER Admitting Unavailable UNKNOWN, PROVIDER Attending Unavailable CHRISTINA AZUL Referring Unavailable CHRISTINA AZUL Primary Care Unavailable Adalgisa KHOURY, Heba Unavailable Christina Azul MD Primary Care Provider Verito Whelan MD Unavailable Seb KHOURY, Nina R Unavailable Paul BRASS CUTTER.Sher VILLEDAy Unavailable [phone] Fredi PAYNE, Denita Unavailable [phone] Adalgisa KHOURY, Heba Unavailable Christina Azul MD Primary Care Provider Tip KHOURY, Verito Unavailable Seb KHOURY, Nina R Unavailable Paul BRASS CUTTER.Sher VILLEDAy Unavailable Fredi PAYNE, Denita Unavailable AMRITA Swann Attending Provider [phone] NO FAMILY, PHYSICIAN Primary Care Provider Unava ilable Adalgisa KHOURY, Heba Unavailable Christina Azul MD Primary Care Provider Fredi PAYNE, Denita Unavailable [phone] Christina Azul MD Primary Care Provider Adalgisa KHOURY, Heba Unavailable Christina Azul MD Primary Care Provider Verito Whelan MD Unavailable [phone] Seb KHOURY, Nina Naranjo Unavailable Paul BRASS CUTTERPatricia FOSTER Unavailable [phone] Fredi PAYNE, Denita Unavailable LOVE [place]ERTS Consulting [...] Consulting Unavailable TIFFANY, DR JANICE Young Consulting UnavailMARICRUZ Mcgee Consulting Unavailable JOSUE SINGH Consulting Unavailable ANTUNEZ, LEA Consulting Unavailable PAUL, DR PATRICIA Ramires [...] Unavailable PAUL, DR PATRICIA Ramires Consulting Unavailable AZUL ., DR CHRISTINA Brothers Primary Care Unavailable PAUL, DR PATRICIA Ramires Attending Unavailable PAUL, DR PATRICIA Ramires Admitting Unavailable MOUKAROSANNE, JONATHAN Referring Unavailable MOUKARBEL, JONATHAN Referring Unavailable MOUKARBEL, JONATHAN Referring Unavailable MOUKARBEL, JONATHAN Attending Unavailable MOUKASABRINAEL, JONATHAN Referring Unavailable MD Christina Azul Primary Care Provider [phone] Saffle, BRASS CUTTER Sapna Guzmán Emergency Provider Rohan ROBLES, Minna Unavailable Unavailable Dr. Orlando Acosta Attending Unavailable Unavailable Primary Care Provider Unavailrome Diana MD, Heba Unavailable Fredi RN, Denita Unavailable Melaniriddewey BRASS CUTTER.ELDERLY CAREGIVER, Estella Kinsey Unavailable Willie PAYNE, Julieth Beatty Unavailable Unavail able Cate BRASS CUTTER.ELDERLY CAREGIVER, Enrique Beatty Primary Care Provider Cate BRASS CUTTER.ELDERLY CAREGIVER, Enrique Beatty Primary Care Provider NON STAFF Primary Care Provider UnavailMD John Oliveira Emergency Provider [phone] Cate BRASS CUTTER.Enrique VILLEDA Primary Care Provider Cate, Enrique L Attending Unavailable Cate, Enrique [...] Attending Unavailable Cate, Enrique L Attending Unavailable TuDO Abel schmidt Emergency Provider DO Shahbaz Lehman Emergency Provider MD Deborah Lamar Emergency Provider [phone] MD Jair Nichols Admit Provider [phone] MD Jair Nichols Attending Provider DO Davion Allen Other Provider NON STAFF Primary Care Unavailable Shahbaz Lehman Admitting Unavailable Shahbaz Lehman Attending Unavailable NON STAFF Primary Care Unavailable Abel De La Cruz Admitting Unavailable Abel De La Cruz Attending Unavailable Jair Nichols Attending Unavailable Davion Allen Consulting Unavailable NON STAFF Primary Care Unavailable Jair Nichols Admitting Unavailable NON STAFF Primary Care Unavailable Jhon Dominguez Admitting Unavailable John Dominguez Attending Unavailable AZUL [facility] Primary Care Unavailable NYDIA PARKS Attending [facility] Care Unavailable ESTELLA FISH Attending Unavailabl e AZUL [facility] Primary Care Unavailable CATE, ENRIQUE RITA Primary Care Unavailable NINA GRIGSBY Referring Unavailable Hector LIMON Referring Unavailable CATE, ENRIQUE RITA Primary Care Unavailable Hector LIMON Attending Unavailable Hector LIMON Referring Unavailable CATE, ENRIQUE RITA Primary Care Unavailable Hector LIMON Referring Unavailable CATE, ENRIQUE RITA Primary Care Unavailable CATE, ENRIQUE RITA Primary Care Unavailable CATE, ENRIQUE RITA Primary Care Unavailable YUSEF PANDYA Referring Unavailable CATE, ENRIQUE RITA Primary Care Unavailable MERARY LUCAS Attending Unavailable CATE, ENRIQUE RITA Primary Care Unavailable NINA GRIGSBY Referring Unavailable CATE, ENRIQUE RITA Primary Care Unavailable PATRICIA MILLER Attending Unavailable AZUL [facility] Primary Care Unavailable NINA GRIGSBY Referring Unavailable PATRICIA MILLER Referring Unavailable AZUL [facility] Primary Care Unavailable [facility] Primary Care Unavailable NINA GRIGSBY Referring Unavailable [facility] Primary Care Unavailable NINA GRIGSBY Referring Unavailable NINA GRIGSBY Attending Unavailable Hector LIMON Attending Unavailable CATE, ENRIQUE RITA Primary Care Unavailable CATE, ENRIQUEKENDRA RAMOS Referring Unavailable CATE, ENRIQUE RITA Primary Care Unavailable ESTELLA FISH Attending Unavailabl e ESTELLA FISH Referring Unavailabl e CATE, ENRIQUE RITA Primary Care Unavailable YUSEF PANDYA Referring Unavailable CATE, ENRIQUE RITA Primary Care Unavailable YUSEF PANDYA Attending Unavailable CATE, ENRIQUEKENDRA RAMOS Referring Unavailable CATE, ENRIQUE RITA Primary Care Unavailable ESTELLA FISH Referring Unavailabl e BUNDRIDESTELLA LARSON Attending Unavailabl e AZUL, MENDON EDQUANTICO Primary Care Unavailable Hector LIMON Attending Unavailable CATE, ENRIQUE RITA Primary Care Unavailable CATE, ENRIQUE RITA Primary Care Unavailable Hector LIMON Attending Unavailable CATE, ENRIQUE RITA Primary Care Unavailable Hector LIMON Attending Unavailable [facility] Primary Care Unavailable NINA GRIGSBY Referring Unavailable AZUL, [facility] Primary Care Unavailable NINA GRIGSBY Attending Unavailable AZUL, MENDON EDQUANTICO Primary Care Unavailable CATE, ENRIQUEKENDRA RAMOS Referring Unavailable CATE, ENRIQUE RITA Primary Care Unavailable NINA GRIGSBY Attending Unavailable AZUL, [facility] Primary Care Unavailable Hector LIMON Attending Unavailable AZUL, [facility] Primary Care Unavailable [facility] Primary Care Unavailable NINA GRIGSBY Attending Unavailable AZUL, [facility] Primary Care Unavailable [facility] Primary Care Unavailable Hector LIMON Attending Unavailable [facility] Primary Care Unavailable AZUL, MENDON EDQUANTICO Primary Care Unavailable NYDIA PARKS Attending Unavailable AZUL, [facility] Primary Care Unavailable CATE, ENRIQUE RITA Primary Care Unavailable NINA GRIGSBY Referring Unavailable NINA GRIGSBY Referring Unavailable CATE, ENRIQUE RITA Primary Care Unavailable CATE, ENRIQUE RITA Primary Care Unavailable DOMINIQUE MURPHY Attending Unavailabl e CATE, ENRIQUEKENDRA RAMOS Referring Unavailable CATE, ENRIQUE RITA Primary Care Unavailable NINA GRIGSBY Attending Unavailable Hector LIMON Referring Unavailable CATE, ENRIQUE RITA Primary Care Unavailable CATE, ENRIQUE RITA Primary Care Unavailable CATE, ENRIQUE RITA Primary Care Unavailable DOMINIQUE MURPHY Attending Unavailabl e CATE, ENRIQUE RITA Primary Care Unavailable ESTELLA FISH Attending Unavailabl e ESTELLA FISH Referring Unavailabl e CATE, ENRIQUE RITA Primary Care Unavailable Hector LIMON Attending Unavailable AZUL, [facility] Primary Care Unavailable CATE, ENRIQUE RITA Referring Unavailable CATE, ENRIQUE RITA Primary Care Unavailable NINA GRIGSBY Attending Unavailable ESTELLA FISH Attending Unavailabl e BUNDESTELLA FERNANDEZ Referring Unavailabl e CATE, ENRIQUE RITA Primary Care Unavailable CATE, ENRIQUE RITA Primary Care Unavailable NINA GRIGSBY Referring Unavailable AZUL, [facility] Primary Care Unavailable CATE, ENRIQUE RITA Referring Unavailable CATE, ENRIQUE RITA Primary Care Unavailable NINA GRIGSBY Attending Unavailable NINA GRIGSBY Attending Unavailable CATE, ENRIQUE RAMOS Referring Unavailable CATE, ENRIQUE RITA Primary Care Unavailable CATE, ENRIQUE RITA Primary Care Unavailable NINA GRIGSBY Attending Unavailable CATE, ENRIQUE RITA Primary Care Unavailable CATE, ENRIQUE RITA Primary Care Unavailable [facility] Primary Care Unavailable AZUL, [facility] Primary Care Unavailable Hector LIMON Referring Unavailable CATE, ENRIQUE RITA Primary Care Unavailable PATRICIA MILLER Attending Unavailable [facility], [facility] Primary Care Unavailable Hector LIMON Referring Unavailable CATE, ENRIQUE RITA Primary Care Unavailable CATE, ENRIQUE RAMOS Referring Unavailable CATE, ENRIQUE RITA Primary Care Unavailable NINA GRIGSBY Attending Unavailable NINA GRIGSBY Referring Unavailable [facility], [facility] Primary Care Unavailable NINA GRIGSBY Referring Unavailable AZUL, [facility] Primary Care Unavailable NINA GRIGSBY Referring Unavailable AZUL, [facility] Primary Care Unavailable DAMON STE Attending Unavailable Hector LIMON Attending Unavailable [facility], [facility] Primary Care Unavailable [facility], [facility] Primary Care Unavailable NINA GRIGSBY Referring Unavailable [facility], [facility] Primary Care Unavailable APTRICIA MILLER Attending Unavailable [facility], [facility] Primary Care Unavailable Hector LIMON Attending Unavailable [facility] Primary Care Unavailable CATE, ENRIQUE RITA Primary Care Unavailable Hector LIMON Attending Unavailable CATE, ENRIQUE RITA Primary Care Unavailable Hector LIMON Attending Unavailable CATE, ENRIQUE RITA Primary Care Unavailable CATE, ENRIQUE RITA Primary Care Unavailable Hector LIMON Referring Unavailable CATE, ENRIQUE RITA Primary Care Unavailable Hector LIMON Referring Unavailable CATE, ENRIQUE RITA Primary Care Unavailable Hector LIMON Attending Unavailable CATE, ENRIQUE RITA Primary Care Unavailable Hector LIMON Referring Unavailable CATE, ENRIQUE RITA Primary Care Unavailable Medications Current Medications Medication Drug Class(es) Dates Sig (Normalized) Sig (Original) [id number] 200 actuat albuterol 0.09 mg/actuat metered dose [...] at mealtime dexAMETHasone (DECADRON) 4 mg tablet take 1 tablet by mouth twice daily with meals 30 tablet 1 03/29/2024 Active Start: 12-02-2023 End: 03-29-2024 take 1 tablet by mouth twice daily [...] FEROSUL 325 mg (65 mg iron) tablet 24 hr isosorbide mononitrate 30 mg extended release oral tablet (20 sources) Nitrate Vasodilator Start: 03-28-2021 End: 10-29-2021 take 30 mg by mouth once daily Isosorbide Mononitrate Active 30 MG PO Daily March 28, 2021 12:00am Comment on above: Take 30 mg by mouth once daily. levoFLOXacin 500 mg oral tablet (13 sources) Quinolone Antimicrobial Start: 11-02-2022 End: 11-12-2022 take 1 tablet by mouth once daily [...] mouth once daily. Take 1 tablet by gabe th once daily for 7 days. Take 1 tablet by gabe once daily for 10 days. minocycline 50 mg oral tablet (2 sources) [...] tablet by gabe th once daily. pregabalin 100 mg oral capsule (20 sources) Start: End: [...] Start: 08-25-2023 take 3 tablets by mo [facility] once daily sotorasib (LUMAKRAS) 320 mg tablet Take 3 tablets by mouth once daily. 90 tablet 3 08/25/2023 Active Start: 05-13-2023 End: 08-25-2023 take 3 tablets by mouth once daily sotorasib (LUMAKRAS) 320 mg tablet Take 3 tablets by mouth once daily. 90 tablet 3 05/13/2023 08/25/2023 Discontinued Start: 05-13-2023 take 3 tablets by mo [facility] once daily sotorasib (LUMAKRAS) 320 mg tablet Take 3 tablets by mouth once daily. 90 tablet 3 05/13/2023 Active Comment on above: Take 3 tablets by [facility] once daily. sulfamethoxazole 800 mg / trimethoprim 160 mg oral tablet (20 sources) Dihydrofolate Reductase Inhibitor Antibacterial, Sulfonamide Antimicrobial Start: End: take 1 tablet by mouth twice daily sulfamethoxazole-tr imethoprim (BACTRIM DS,SEPTRA DS) 800-160 mg per tablet Take 1 tablet by mouth twice daily. 0 01/18/2022 03/26/2022 Discontinued (Course of therapy completed) Comment on above: Take 1 tablet by [facility] twice daily. traZODone hydrochloride 50 mg [...] venlafaxine 37.5 mg extended release oral capsule (4 sources) Serotonin and Norepinephrine Reuptake Inhibitor Start: 03-17-2024 End: 04-16-2024 take 1 capsule by mouth once daily venlafaxine ER (EFFEXOR XR) 37.5 mg 24 hr capsule Take 1 capsule by mouth once daily. 30 capsule 2 03/17/2024 04/16/2024 Active Completed/Discontinued Medications Medication Drug Class(es) Dates [...] twice daily. Take 1 tablet by gabe th every 12 hours. amoxicillin 875 mg [...] for 4 days. TAKE 2 TABLETS by [facility] today, THEN take 1 TABLET once a day FOR the next 4 DAYS. Ciprofloxacin-Dexametha sone (Ciprodex) 0.3-0.1 % drops,suspension (4 sources) Start: 02-05-20 End: 02-07-20 24 Ciprofloxacin-Dexameth asone (Ciprodex) 0.3-0.1 % drops,suspension Discontinued 4 DROPS EAR-RIGHT Twice daily 7.5 7 February 04, 2023 12:00am February 07, 2024 3:49pm cloNIDine hydrochloride 0.1 mg oral tablet (10 sources) Central alpha-2 Adrenergic Agonist End: 12-04-19 take 1 tablet by mouth three times [...] (CPD) (20 sources) Start: 05-08-20 End: 08-25-19 take 5 mL by mouth every six [...] spray (16 sources) Corticosteroid Start: 023 End: take 2 spray(s) nasal route once daily [...] Take 1 tablet by gabe once daily. 120 actuat formoterol fumarate 0.0048 mg/actuat / glycopyrrolate 0.009 mg/actuat metered dose inhaler (6 sources) beta2-Adrenergic Agonist Start: End: Glycopyrrolate-Formote rol (Bevespi Aerosphere) 9-4.8 mcg HFA aerosol inhaler Discontinued 2 PUFF INHALATION Q12H June 07, 2020 1:00am February 07, 2024 3:49pm gabapentin 400 mg oral capsule (20 sources) Anti-epileptic Agent Start: End: take 1 capsule by mouth twice daily gabapentin (NEURONTIN) 400 mg capsule Indications: Neuropathy due to chemotherapeutic drug (HCC) Take 1 capsule by mouth two times a day for 30 days. 60 capsule 11/21/2023 12/26/2023 Discontinued Start: 05-16-2023 End: 11-21-2023 [...] on above: Take 1 capsule by mo [facility] twice daily for 30 days. Take 1 capsule by [facility] three times a day for 3 days, THEN 2 capsules three times a day for 3 days, THEN 3 capsules three times a day for 24 days. Take 1 capsule by [facility] three times a day for 120 days. Take 1 capsule by [facility] three times a day isosorbide dinitrate 10 mg oral tablet (20 sources) Nitrate Vasodilator Start: End: 2 take 1 tablet by mouth [...] Comment on above: TAKE 1 TABLET BY [facility] EVERY MORNING and TAKE 1 TABLET BY [...] topical cream (20 sources) Azole Antifungal Start: 023 End: 02-05-2 024 ketoconazole (NIZORAL) 2 % cream mix with mometasone and APPLY TO THE AFFECTED AREA(S) TWICE DAILY for 30 days 0 04/28/2023 08/25/2023 Discontinued Comment on above: mix with mometasone and APPLY TO THE AFFECTED AREA(S) TWICE DAILY for 30 days levothyroxine sodium 0.075 mg oral tablet (20 sources) l-Thyroxine Start: End: take 1 tablet by mouth once daily levothyroxine (SYNTHROID) 75 mcg tablet Take 1 tablet by mouth once daily. 30 tablet 1 08/27/2023 12/24/2023 Discontinued Start: 04-23-2023 End: 06-04-2023 take 1 tablet by mouth once daily levothyroxine (SYNTHROID) 50 mcg tablet Take 1 tablet by mouth once daily. 30 tablet 0 05/05/2023 05/19/2023 Discontinued Comment on above: Take 1 tablet by gabe once daily. lidocaine 0.04 mg/mg medicated patch (4 sources) Antiarrhythmic, Amide Local Anesthetic Start : 10-03 End: 10-22 apply 1 dose transdermal route once daily lidocaine (SALONPAS) 4 % patch Apply 1 Patch as directed once daily. 0 10/03/2021 10/22/2021 Discontinued (Discontinued by another Health Care Provider) Comment on above: Apply 1 Patch as dir ected once daily. methylPREDNISolone 4 mg oral tablet (20 sources) Corticosteroid Start : 02-06 End: 03-19 Methylprednisolone Discontinued 4 MG PO As Directed [...] (20 sources) beta-Adrenergic Melissa Start: 0 End: 2 take 1 tablet by mouth [...] 03/01/2024 03/17/2024 Discontinued Start: 11-21-2023 End: 12-21-2023 oxyCODONE (ROXICODONE) 15 mg immediate release tablet Indications: Malignant neoplasm of upper lobe of left lung (HCC) Take 1 tablet by mouth now 1 tablet 12/02/2023 12/03/2023 Discontinued ([facility]plicate Med) Start: 06-13-2023 End: 11-21-2023 take 1 tablet [...] up to 15 days. polyethylene glycol 3350 63642 mg powder for oral solution (4 sources) Osmotic Laxative Start: 2 End: 2 polyethylene glycol 3350 (MIRALAX, GLYCOLAX) 17 gram packet Take 1 Packet by mouth once daily. Dissolve dose in 4 - 8 ounces of liquid and take as directed. 0 10/03/2021 10/22/2021 Discontinued (Discontinued by another Health Care Provider) Comment on above: Take 1 Packet by gabe th once daily. Dissolve dose in 4 [...] Coronary atherosclerosis; Translations: [Atherosclerotic heart disease of hopi coronary artery without angina pectoris] Onset: 2 [...] malignant neoplasm] Episodic Other aftercare (1 source) jail (current) use of aspirin; Translations: [SKATING CARHOP CURRENT USE OF ASPIRIN] Onset: 3 Episodic Other aftercare (1 source) jail (current) use of antithrombotics/antiplate lets; Translations: [[facility] ANTITHROMBOT/ANTIPLATLETS ] Onset: 3 Episodic Other aftercare (1 source) Other penitentiary (current) drug therapy; Translations: [OTH SKATING CARHOP CURRENT DRUG THERAPY] Onset: 3 Episodic Other aftercare (3 sources) Under care of palliative care physician; Translations: [Encounter for palliative care] 05-16-2023 Episodic Other aftercare (2 sources) Drug therapy finding; Translations: [jail (current) use of opiate analgesic] 06-13-2023 Episodic [...] (acute) (chronic); Translations: [Neoplasm related pain] Onset: 3 Chronic Other nervous system disorders (1 source) [...] to medicaments and other exogenous substances] Onset: 3 06-02-2023 Chronic Unclassified (1 source) CONTACT W/AND (SUSP) EXPOS COVID-19; Translations: [CONTACT W/AND (SUSP) EXPOS COVID-19] Onset: 2 Unclassified (1 source) Cough, unspecified; Translations: [Cough, unspecified] Onset: 4 Unclassified (1 source) Lung Cancer Onset: 3 [...] ALT [Catalytic activity/Vol] 9 U/L Normal 7-52 [facility] Comment on above: Performed By: #### C BC, CMP, MG ####[place] [id number] [address] Albumin [Mass/volume] in Ser um or Plasma by Bromocresol green (BCG) dye binding methoOrdered By: Jair Nichols on 03-20-2024 Albumin BCG dye [Mass/Vol] 3.3 g/dL Low 3.5-5.7 [facility] Alkaline phosphatase [Enzyma tic activity/volume] in Serum or PlasmaOrdered By: Jair Nichols on 03-20-2024 ALP [Catalytic activity/Vol] 46 U/L Normal 34-104 [facility] Comment on above: Performed By: #### C BC, CMP, MG ####[address] Aspartate aminotransferase [ Enzymatic activity/volume] in Serum or PlasmaOrdered By: Jair Nichols on 03-20-2024 AST [Catalytic activity/Vol] 11 U/L Low 13-39 [facility] Comment on above: Performed By: #### C BC, CMP, MG ####[place] [id number] [facility] Automated basophil %Ordered By: Jair Nichols on 03-20-2024 Basophils/100 WBC (Bld) 0.2 % Normal . [facility] Comment on above: Performed By: #### C BC, CMP, MG ####[place] [id number] [place] [id number] [facility] Automated basophil countOrde red By: Jair Nichols on 03-20-2024 Basophils (Bld) [#/Vol] 0.0 10*3/uL Normal 0.0-0.2 [facility] Comment on above: Result Comment: PERF ORMED BY: [facility] [address] [place] [address] PATHOLOGIST WASHER CUTTER ALEX CROWLEY M.D. Performed By: #### C BC, CMP, MG ####[address] Automated blood monocyte cou ntOrdered By: Jair Magdalena on 03-20-2024 Monocytes (Bld) [#/Vol] 0.5 10*3/uL Normal 0.0-0.8 [facility] Comment on above: Performed By: #### C BC, CMP, MG ####[address] Automated eosinophil %Ordere d By: Jair Magdalena on 03-20-2024 Eosinophils/100 WBC (Bld) 0.2 % Normal . [facility] Comment on above: Performed By: #### C BC, CMP, MG ####[address] Automated eosinophil countOr dered By: Jair Magdalena on 03-20-2024 Eosinophils (Bld) [#/Vol] 0.0 10*3/uL Normal 0.0-0.45 [facility] Comment on above: Performed By: #### C BC, CMP, MG ####[address] Automated monocyte %Ordered By: Jair Magdalena on 03-20-2024 Monocytes/100 WBC (Bld) 8.7 % Normal . [facility] Comment on above: Performed By: #### C BC, CMP, MG ####[address] Automated neutrophil %Ordere d By: Jair Magdalena on 03-20-2024 Neutrophils/100 WBC (Bld) 82.3 % Normal . [facility] Comment on above: Performed By: #### C BC, CMP, MG ####[address] Bilirubin.total [Mass/volume ] in Serum or PlasmaOrdered By: Jair Magdalena on 03-20-2024 Bilirubin [Mass/Vol] 0.6 mg/dL Normal 0.3-1.0 [facility] Comment on above: Performed By: #### C BC, CMP, MG ####[address] Calcium [Mass/volume] in Ser um or PlasmaOrdered By: Jair Magdalena on 03-20-2024 Calcium [Mass/Vol] 8.8 mg/dL Normal 8.6-10.3 [facility] Comment on above: Performed By: #### C BC, CMP, MG ####[address] Carbon dioxide, total [Moles /volume] in Serum or PlasmaOrdered By: Jair Nichols on 03-20-2024 CO2 [Moles/Vol] 25.0 mmol/L Normal 21.0-31.0 [facility] Comment on above: Performed By: #### C BC, CMP, MG ####[address] Chloride [Moles/volume] in S juanpablo or PlasmaOrdered By: Jair Magdalena on 03-20-2024 Chloride [Moles/Vol] 110 mmol/L High 98-107 [facility] Comment on above: Performed By: #### C BC, CMP, MG ####[place] [id number] [facility] Complete Blood Count Auto Di ffon 03-20-2024 Mean Corpuscular HGB Conc 32.8 g/dL Normal 32.5-35.6 [facility] Comment on above: Performed By: #### C BC, CMP, MG ####[place] [id number] [facility] NRBC% 0.0 /100{WBC} Normal 0-0.5 [facility] Comment on above: Performed By: #### C BC, CMP, MG ####[address] Comprehensive Metabolic Pane tim 03-20-2024 Albumin [Mass/Vol] 3.3 g/dL Low 3.5-5.7 [facility] Comment on above: Performed By: #### C BC, CMP, MG ####[address] Creatinine Clr Calc Pharmacy 58.50 Normal [facility] Comment on above: Performed By: #### C BC, CMP, MG ####[address] GFR/1.73 sq M.predicted MDRD (S/P/Bld) [Vol rate/Area] mL/min/{1.73_m2} Normal [facility] Comment on above: Performed By: #### C BC, CMP, MG ####[address] Creatinine [Mass/volume] in Serum or PlasmaOrdered By: Jair Nichols on 03-20-2024 Creatinine [Mass/Vol] 0.87 mg/dL Normal 0.70-1.30 [facility] Comment on above: Performed By: #### C BC, CMP, MG ####[address] Erythrocyte distribution wid th [Ratio] by Automated countOrdered By: Jair Nichols on 03-20-2024 Erythrocyte distribution width (RBC) [Ratio] 13.8 % Normal 12.0-14.8 [facility] Comment on above: Performed By: #### C BC, CMP, MG ####[address] Erythrocytes [#/volume] in B lood by Automated countOrdered By: Jair Magdalena on 03-20-2024 RBC (Bld) [#/Vol] 3.54 10*6/uL Low 3.90-5.60 [facility] Comment on above: Performed By: #### C TEGAN BELCHER, MG ####[place] [id number] [place] [id number] [facility] Glucose [Mass/volume] in Ser um or PlasmaOrdered By: Jair Nichols on 03-20-2024 Glucose [Mass/Vol] 101 mg/dL High 70-100 [facility] Comment on above: ADA recommended refe rence rangeRandom Glucose Reference Range is dependent on time and content of last meal. Glucose of more than 200 mg/dL in a nonstressed, ambulatory subject supports the diagnosis of Diabetes Mellitus. Result Comment: [place] Glucose Reference Range is dependent on time and content of last meal. Glucose of more than 200 mg/dL in a nonstressed, ambulatory subject supports the diagnosis of Diabetes Mellitus. ADA recommended reference range Performed By: #### C TEGAN BELCHER, MG ####[place] [id number] [facility] Hematocrit [Volume Fraction] of Blood by Automated countOrdered By: Jair Nichols on 03-20-2024 Hematocrit (Bld) [Volume fraction] 33.2 % Low 38.8-50.0 [facility] Comment on above: Performed By: #### C TEGAN BELCHER, MG ####[address] Hemoglobin [Mass/volume] in BloodOrdered By: Jair Nichols on 03-20-2024 Hemoglobin (Bld) [Mass/Vol] 10.9 g/dL Low 13.0-17.0 [facility] Comment on above: Performed By: #### C YE CMP, MG ####[place] [id number] [facility] Leukocytes [#/volume] correc nani for nucleated erythrocytes in Blood by Automated counOrdered By: Jair Nichols on 03-20-2024 WBC corrected for nucl RBC Auto (Bld) [#/Vol] 5.8 10*3/uL 4.1-10.5 [facility] Leukocytes [#/volume] in Blo od by Automated countOrdered By: Jair Nichols on 08-31-2024 WBC (Bld) [#/Vol] 5.8 10*3/uL Normal 4.1-10.5 [facility] Comment on above: Performed By: #### C BC, CMP, MG ####[address] Lymphocytes [#/volume] in Bl ood by Automated countOrdered By: Jair Magdalena on 03-20-2024 Lymphocytes (Bld) [#/Vol] 0.5 10*3/uL Low 1.00-4.8 [facility] Comment on above: Performed By: #### C BC, CMP, MG ####[address] Lymphocytes/100 leukocytes i n Blood by Automated countOrdered By: Jair Magdalena on 03-20-2024 Lymphocytes/100 WBC (Bld) 8.6 % Normal . [facility] Comment on above: Performed By: #### C BC, CMP, MG ####[address] MCH [Entitic mass] by Automa nani countOrdered By: Jairadela Nichols on 03-20-2024 MCH (RBC) [Entitic mass] 30.7 pg Normal 27.5-35.2 [facility] Comment on above: Performed By: #### C BC, CMP, MG ####[address] MCHC Auto (RBC) [Mass/Vol]Or dered By: Jair Magdalena on 03-20-2024 MCHC (RBC) [Mass/Vol] 32.8 g/dL 32.5-35.6 [facility] MCV [Entitic volume] by Auto mated countOrdered By: Jair Magdalena on 03-20-2024 MCV (RBC) [Entitic vol] 93.6 fL Normal 83.5-101 [facility] Comment on above: Performed By: #### C BC, CMP, MG ####[address] Magnesium [Mass/volume] in S juanpablo or PlasmaOrdered By: Jair Nichols on 03-20-2024 Magnesium [Mass/Vol] 1.8 mg/dL Low 1.9-2.7 [facility] Comment on above: Result Comment: PERF ORMED BY: [facility] [address] [place] [address] PATHOLOGIST WASHER CUTTER ALEX CROWLEY M.D. Performed By: #### C BC, CMP, MG ####[place] [id number] [address] Neutrophils [#/volume] in Bl ood by Automated countOrdered By: Jair Nichols on 03-20-2024 Neutrophils (Bld) [#/Vol] 4.8 10*3/uL Normal 1.8-7.7 [facility] Comment on above: Performed By: #### C BC, CMP, MG ####[place] [id number] [address] No Panel InformationOrdered By: Jair Nichols on 03-20-2024 Estimated GFR (CKD-EPI) > 60.0 mL/Min [facility] Creatinine Clearance (Chem 58.50 [facility] Nucleated erythrocytes [Pres ence] in Blood by Automated countOrdered By: Jair Nichols on 03-20-2024 Nucleated RBC Auto Ql (Bld) 0.0 /100{WBC} 0-0.5 [facility] Platelet mean volume [Entiti c volume] in Blood by Automated countOrdered By: Jair Nichols on 03-20-2024 Platelet mean volume (Bld) [Entitic vol] 9.5 fL Normal 6.6-10.1 [facility] Comment on above: Performed By: #### C BC, CMP, MG ####[place] [id number] [address] Platelets [#/volume] in Bloo d by Automated countOrdered By: Jair Nichols on 03-20-2024 Platelets (Bld) [#/Vol] 236 10*3/uL Normal 150-450 [facility] Comment on above: Performed By: #### C BC, CMP, MG ####[place] [id number] [facility] Potassium [Moles/volume] in Serum or PlasmaOrdered By: Jair Magdalena on 03-20-2024 Potassium [Moles/Vol] 4.1 mmol/L Normal 3.5-5.1 [facility] Comment on above: Performed By: #### C BC, CMP, MG ####[place] [id number] [facility] Protein [Mass/volume] in Ser um or PlasmaOrdered By: Jair Magdalena on 03-20-2024 Protein [Mass/Vol] 6.3 g/dL Low 6.4-8.9 [facility] Comment on above: Performed By: #### C BC, CMP, MG ####[place] [id number] [facility] Serum globulin measurement b y calculation (mass/volume)Ordered By: Jair Magdalena on 03-20-2024 Globulin (S) [Mass/Vol] 3.0 g/dL Normal [facility] Comment on above: Performed By: #### C BC, CMP, MG ####[place] [id number] [facility] Serum or plasma albumin/glob ulin mass ratioOrdered By: Jair Magdalena on 03-20-2024 Albumin/Globulin [Mass ratio] 1.1 {ratio} [facility] Comment on above: Performed By: #### C BC, CMP, MG ####[place] [id number] [facility] Serum or plasma anion gap de terminationOrdered By: Jair Magdalena on 03-20-2024 Anion gap [Moles/Vol] 9.1 mmol/L Normal 6.0-15.0 [facility] Comment on above: Performed By: #### C BC, CMP, MG ####[place] [id number] [facility] Sodium [Moles/volume] in Ser um or PlasmaOrdered By: Jair Magdalena on 03-20-2024 Sodium [Moles/Vol] 140 mmol/L Normal 136-145 [facility] Comment on above: Performed By: #### C BC, CMP, MG ####[facility] [id number] Urea nitrogen [Mass/volume] in Serum or PlasmaOrdered By: Jair Nichols on 03-20-2024 Urea nitrogen [Mass/Vol] 20 mg/dL Normal 7-25 [facility] Comment on above: Performed By: #### C BC, CMP, MG ####[facility] [place] [id number] [facility] Activated partial thrombopla stin time (aPTT) in platelet poor plasma by coagulation aOrdered By: Shahbaz Lehman on 03-19-2024 aPTT Coag (PPP) [Time] 29.4 s 25.1-36.5 [facility] Comment on above: A hematocrit value g reater than 55% may lead to inaccurate results in coagulation testing. Patients having hematocrit values >55% require a special collection tube for coagulation studies. Please contact the laboratory at [phone] for redraw instructions. Alanine aminotransferase [En zymatic activity/volume] in Serum or PlasmaOrdered By: Shahbaz Lehman on 03-19-2024 ALT [Catalytic activity/Vol] 12 U/L Normal 7-52 [facility] Comment on above: Performed By: #### P T, PTT, CMP, MG, TSH3, CBC, HS TROP #### [facility] [address] [place] [address] [place] Albumin [Mass/volume] in Ser um or Plasma by Bromocresol green (BCG) dye binding methoOrdered By: Shahbaz Lehman on 03-19-2024 Albumin BCG dye [Mass/Vol] 3.7 g/dL 3.5-5.7 [facility] Alkaline phosphatase [Enzyma tic activity/volume] in Serum or PlasmaOrdered By: Shahbaz Lehman on 03-19-2024 ALP [Catalytic activity/Vol] 47 U/L Normal 34-104 [facility] Comment on above: Performed By: #### P T, PTT, CMP, MG, TSH3, CBC, HS TROP #### [address] Aspartate aminotransferase [ Enzymatic activity/volume] in Serum or PlasmaOrdered By: Shahbaz Lehman on 03-19-2024 AST [Catalytic activity/Vol] 16 U/L Normal 13-39 [facility] Comment on above: Performed By: #### P T, PTT, CMP, MG, TSH3, CBC, HS TROP #### [address] Automated basophil %Ordered By: Shahbaz Lehman on 03-19-2024 Basophils/100 WBC (Bld) 0.5 % Normal . [facility] Comment on above: Performed By: #### P T, PTT, CMP, MG, TSH3, CBC, HS TROP #### [address] Automated basophil countOrde red By: Shahbaz Lehman on 03-19-2024 Basophils (Bld) [#/Vol] 0.0 10*3/uL Normal 0.0-0.2 [facility] Comment on above: Result Comment: PERF ORMED BY: [place] [address] PATHOLOGIST WASHER CUTTER ALEX CROWLEY M.D. Performed By: #### P T, PTT, CMP, MG, TSH3, CBC, HS TROP #### [address] Automated blood monocyte cou ntOrdered By: Shahbaz Lehman on 03-19-2024 Monocytes (Bld) [#/Vol] 0.6 10*3/uL Normal 0.0-0.8 [facility] Comment on above: Performed By: #### P T, PTT, CMP, MG, TSH3, CBC, HS TROP #### [address] Automated eosinophil %Ordere d By: Shahbaz Lehman on 03-19-2024 Eosinophils/100 WBC (Bld) 1.2 % Normal . [facility] Comment on above: Performed By: #### P T, PTT, CMP, MG, TSH3, CBC, HS TROP #### [facility] [address] Automated eosinophil countOr dered By: Shahbaz Lehman on 03-19-2024 Eosinophils (Bld) [#/Vol] 0.1 10*3/uL Normal 0.0-0.45 [facility] Comment on above: Performed By: #### P T, PTT, CMP, MG, TSH3, CBC, HS TROP #### [facility] [address] Automated monocyte %Ordered By: Shahbaz Lehman on 03-19-2024 Monocytes/100 WBC (Bld) 8.4 % Normal . [facility] Comment on above: Performed By: #### P T, PTT, CMP, MG, TSH3, CBC, HS TROP #### [address] Automated neutrophil %Ordere d By: Shahbaz Lehman on 03-19-2024 Neutrophils/100 WBC (Bld) 79.6 % Normal . [facility] Comment on above: Performed By: #### P T, PTT, CMP, MG, TSH3, CBC, HS TROP #### [address] Bilirubin Test strip Ql (U)O rdered By: Shahbaz Lehman on 03-19-2024 Bilirubin Ql (U) Negative Negative [facility] Bilirubin.total [Mass/volume ] in Serum or PlasmaOrdered By: Shahbaz Lehman on 03-19-2024 Bilirubin [Mass/Vol] 0.4 mg/dL Normal 0.3-1.0 [facility] Comment on above: Performed By: #### P T, PTT, CMP, MG, TSH3, CBC, HS TROP #### [address] head/brain wo conon 03-19 CT head/brain wo con [facility] [place] [address] CT Scan Report Signed Patient: Cristal Gu MR#: [id number] : 1955 Acct:[id number] Age/Sex: 69 / M ADM Date: 03/19/24 Loc: ER Room: Type: [facility] ER Attending Dr: Copies to: Shahbaz [...] contrast is recommended. Impression dictated by: Star Makr Jr., D.OJudi03/19/2024 11:52 AM Dictation Location: [place] [address] Transcribed By: [facility] 03/19/24 1152 Dictated By: Star Mark Jr, DO 03/19/24 1149 Signed By: 03/19/24 1152 Normal [facility] Calcium [Mass/volume] in Ser um or PlasmaOrdered By: Shahbaz Lehman on 03-19-2024 Calcium [Mass/Vol] 8.9 mg/dL Normal 8.6-10.3 [facility] Comment on above: Performed By: #### P T, PTT, CMP, MG, TSH3, CBC, HS TROP #### [address] Capillary blood glucose jerson urement by glucometer (mass/volume)Ordered By: Shahbaz Lehman on 03-19-2024 Glucose [Mass/Vol] 85 mg/dL Normal [facility] Comment on above: Random Glucose Refer ence Range is dependent on time and content of last meal. Glucose of more than 200 mg/dL in a nonstressed, ambulatory subject supports the diagnosis of Diabetes Mellitus. Result Comment: [facility] Glucose Reference Range is dependent on time and content of last meal. Glucose of more than 200 mg/dL in a nonstressed, ambulatory subject supports the diagnosis of Diabetes Mellitus. PERFORMED BY: [place] [address] PATHOLOGIST WASHER CUTTER ALEX CROWLEY M.D. Performed By: #### G RHIANNA ####Point of Care testing, Carbon dioxide, total [Moles /volume] in Serum or PlasmaOrdered By: Shahbaz Lehman on 03-19-2024 CO2 [Moles/Vol] 28.6 mmol/L Normal 21.0-31.0 [facility] Comment on above: Performed By: #### P T, PTT, CMP, MG, TSH3, CBC, HS TROP #### [place] [address] [place] Chloride [Moles/volume] in S juanpablo or PlasmaOrdered By: Shahbaz Lehman on 03-19-2024 Chloride [Moles/Vol] 102 mmol/L Normal 98-107 [facility] Comment on above: Performed By: #### P T, PTT, CMP, MG, TSH3, CBC, HS TROP #### [address] Color of Urine by AutoOrdere d By: Shahbaz Lehman on 03-19-2024 Color (U) Light-yellow Normal Yellow [facility] Comment on above: Order Comment: Name Collection Type:: Clean-Voided Midstream Performed By: #### U A ####[address] Complete Blood Count Auto Di ffon 03-19-2024 Mean Corpuscular HGB Conc 33.3 g/dL Normal 32.5-35.6 [facility] Comment on above: Performed By: #### P T, PTT, CMP, MG, TSH3, CBC, HS TROP #### [place] [address] [place] Monocytes/100 WBC (Bld) 19.30 % Normal 0.00-20.00 [facility] Comment on above: Performed By: #### P T, PTT, CMP, MG, TSH3, CBC, HS TROP #### [address] NRBC% 0.0 /100{WBC} Normal 0-0.5 [facility] Comment on above: Performed By: #### P T, PTT, CMP, MG, TSH3, CBC, HS TROP #### [address] Comprehensive Metabolic Pane tim 03-19-2024 Albumin [Mass/Vol] 3.7 g/dL Normal 3.5-5.7 [facility] Comment on above: Performed By: #### P T, PTT, CMP, MG, TSH3, CBC, HS TROP #### [address] Creatinine Clr Calc Pharmacy 50.94 Normal [facility] Comment on above: Performed By: #### P T, PTT, CMP, MG, TSH3, CBC, HS TROP #### [address] GFR/1.73 sq M.predicted MDRD (S/P/Bld) [Vol rate/Area] mL/min/{1.73_m2} Normal [facility] Comment on above: Performed By: #### P T, PTT, CMP, MG, TSH3, CBC, HS TROP #### [address] Creatinine [Mass/volume] in Serum or PlasmaOrdered By: Shahbaz Lehman on 03-19-2024 Creatinine [Mass/Vol] 1.04 mg/dL Normal 0.70-1.30 [facility] Comment on above: Performed By: #### P T, PTT, CMP, MG, TSH3, CBC, HS TROP #### [address] ECG 12 lead ECGon 03-19-2024 ECG 12 lead ECG [facility] [place] [address] Electrocardiograph Report Signed Patient: Cristal Gu MR#: [id number] 2627 : 1955 Acct:[id number] Age/Sex: 69 / M ADM Date: 03/19/24 Loc: Room: [address] [place] [address] Type: ADM INOo Attending Dr: Jair Nichols [...] Lateral leads Confirmed by Deborah Lamar MD ([id number]) on 03/19/2024 11:02:32 PM Referred By: Electronically Signed By: Deborah Lamar MD Transcribed By: MUS Signed By Deborah Lamar MD 02/20 Normal [facility] ECG 12 lead ECG [facility] [place] [address] Electrocardiograph Report Signed Patient: Cristal Gu MR#: [id number] 2627 : 1955 Acct:[id number] Age/Sex: 69 / M ADM Date: 03/19/24 Loc: ER Room: Type: [facility] ER Attending Dr: Ordering Provider: Shahbaz [...] Sinus rhythm Confirmed by Shahbaz LEHMAN DO ([id number]) on 03/19/2024 4:01:20 PM Referred By: Electronically Signed By: Shahbaz LEHMAN DO Transcribed By: MUS Signed By Shahbaz Lehman, 0 03/19/24 1601 Normal [facility] Erythrocyte distribution wid th [Ratio] by Automated countOrdered By: Shahbaz Lehman on 03-19-2024 Erythrocyte distribution width (RBC) [Ratio] 13.7 % Normal 12.0-14.8 [facility] Comment on above: Performed By: #### P T, PTT, CMP, MG, TSH3, CBC, HS TROP #### [facility] [address] Erythrocytes [#/volume] in B lood by Automated countOrdered By: Shahbaz Lehman on 03-19-2024 RBC (Bld) [#/Vol] 3.61 10*6/uL Low 3.90-5.60 [facility] Comment on above: Performed By: #### P T, PTT, CMP, MG, TSH3, CBC, HS TROP #### [facility] [address] [place] [id number] [place] Glucose [Mass/volume] in Ser um or PlasmaOrdered By: Shahbaz Lehman on 03-19-2024 Glucose [Mass/Vol] 86 mg/dL Normal 70-100 [facility] Comment on above: ADA recommended refe rence rangeRandom Glucose Reference Range is dependent on time and content of last meal. Glucose of more than 200 mg/dL in a nonstressed, ambulatory subject supports the diagnosis of Diabetes Mellitus. Result Comment: [place] [facility] Glucose Reference Range is dependent on time and content of last meal. Glucose of more than 200 mg/dL in a nonstressed, ambulatory subject supports the diagnosis of Diabetes Mellitus. ADA recommended reference range Performed By: #### P T, PTT, CMP, MG, TSH3, CBC, HS TROP #### [facility] [address] [place] [id number] [place] Glucose [Mass/volume] in Uri ne by Test stripOrdered By: Shahbaz Lehman on 03-19-2024 Glucose Test strip (U) [Mass/Vol] Normal mg/dL Normal [facility] Hematocrit [Volume Fraction] of Blood by Automated countOrdered By: Shahbaz Lehman on 03-19-2024 Hematocrit (Bld) [Volume fraction] 34.1 % Low 38.8-50.0 [facility] Comment on above: Performed By: #### P T, PTT, CMP, MG, TSH3, CBC, HS TROP #### [facility] [address] Hemoglobin Test strip Ql (U) Ordered By: Shahbaz Lehman on 03-19-2024 Hemoglobin Ql (U) Negative Negative [facility] Hemoglobin [Mass/volume] in BloodOrdered By: Shahbaz Lehman on 03-19-2024 Hemoglobin (Bld) [Mass/Vol] 11.3 g/dL Low 13.0-17.0 [facility] Comment on above: Performed By: #### P T, PTT, CMP, MG, TSH3, CBC, HS TROP #### [address] INR in Platelet poor plasma by Coagulation assayOrdered By: Shahbaz Lehman on 03-19-2024 INR Coag (PPP) [Relative time] 1.0 {INR} Normal [facility] Comment on above: INR Therapeutic Rang [...] CMP, MG, TSH3, CBC, HS TROP #### [address] Ketones [Presence] in Urine by Test stripOrdered By: Shahbaz Lehman on 03-19-2024 Ketones Ql (U) Negative Normal Negative [facility] Comment on above: Order Comment: Name Collection Type:: Clean-Voided Midstream Performed By: #### U A ####[facility] Leukocyte esterase [Presence ] in Urine by Test stripOrdered By: Shahbaz Lehman on 03-19-2024 Leukocyte esterase Test strip Ql (U) Negative Normal Negative [facility] Comment on above: Order Comment: Name Collection Type:: Clean-Voided Midstream Performed By: #### U A ####[address] Leukocytes [#/volume] correc nani for nucleated erythrocytes in Blood by Automated counOrdered By: Shahbaz Lehman on 03-19-2024 WBC corrected for nucl RBC Auto (Bld) [#/Vol] 7.1 10*3/uL 4.1-10.5 [facility] Leukocytes [#/volume] in Blo od by Automated countOrdered By: Shahbaz Lehman on 03-19-2024 WBC (Bld) [#/Vol] 7.1 10*3/uL Normal 4.1-10.5 [facility] Comment on above: Performed By: #### P T, PTT, CMP, MG, TSH3, CBC, HS TROP #### [address] Lymphocytes [#/volume] in Bl ood by Automated countOrdered By: Shahbaz Lehman on 03-19-2024 Lymphocytes (Bld) [#/Vol] 0.7 10*3/uL Low 1.00-4.8 [facility] Comment on above: Performed By: #### P T, PTT, CMP, MG, TSH3, CBC, HS TROP #### [facility] [address] [place] [address] [place] Lymphocytes/100 leukocytes i n Blood by Automated countOrdered By: Shahbaz Lehman on 03-19-2024 Lymphocytes/100 WBC (Bld) 10.3 % Normal . [facility] Comment on above: Performed By: #### P T, PTT, CMP, MG, TSH3, CBC, HS TROP #### [facility] [address] MCH [Entitic mass] by Automa nani countOrdered By: Shahbaz Lehman on 03-19-2024 MCH (RBC) [Entitic mass] 31.4 pg Normal 27.5-35.2 [facility] Comment on above: Performed By: #### P T, PTT, CMP, MG, TSH3, CBC, HS TROP #### [facility] [address] MCHC Auto (RBC) [Mass/Vol]Or dered By: Shahbaz Lehman on 03-19-2024 MCHC (RBC) [Mass/Vol] 33.3 g/dL 32.5-35.6 [facility] MCV [Entitic volume] by Auto mated countOrdered By: Shahbaz Lehman on 03-19-2024 MCV (RBC) [Entitic vol] 94.3 fL Normal 83.5-101 [facility] Comment on above: Performed By: #### P T, PTT, CMP, MG, TSH3, CBC, HS TROP #### [facility] [address] Magnesium [Mass/volume] in S juanpablo or PlasmaOrdered By: Shahbaz Lehman on 03-19-2024 Magnesium [Mass/Vol] 1.6 mg/dL Low 1.9-2.7 [facility] Comment on above: Performed By: #### P T, PTT, CMP, MG, TSH3, CBC, HS TROP ####[facility] Ajb[address] Monocyte distribution width [Entitic volume] in Blood by AutomatedOrdered By: Shahbaz Lehman on 03-19-2024 Monocyte distribution width Auto (Bld) [Entitic vol] 19.30 % 0.00-20.00 [facility] Neutrophils [#/volume] in Bl ood by Automated countOrdered By: Shahbaz Lehman on 03-19-2024 Neutrophils (Bld) [#/Vol] 5.7 10*3/uL Normal 1.8-7.7 [facility] Comment on above: Performed By: #### P T, PTT, CMP, MG, TSH3, CBC, HS TROP #### [facility] [address] [place] [id number] [facility] Nitrite Test strip Ql (U)Ord ered By: Shahbaz Lehman on 03-19-2024 Nitrite Ql (U) Negative Negative [facility] No Panel InformationOrdered By: Shahbaz Lehman on 03-19-2024 Estimated GFR (CKD-EPI) > 60.0 mL/Min [facility] Creatinine Clearance (Chem 50.94 [facility] Nucleated erythrocytes [Pres ence] in Blood by Automated countOrdered By: Shahbaz Lehman on 03-19-2024 Nucleated RBC Auto Ql (Bld) 0.0 /100{WBC} 0-0.5 [facility] Partial Thromboplastin Timeo n 03-19-2024 aPTT Coag (Bld) [Time] 29.4 s Normal 25.1-36.5 [facility] Comment on above: Result Comment: A he matocrit value greater than 55% may lead to inaccurate results in coagulation testing. Patients having hematocrit values >55% require a special collection tube for coagulation studies. Please contact the laboratory at [phone] for redraw instructions. PERFORMED BY: [address] [place] [address] PATHOLOGIST WASHER CUTTER ALEX CROWLEY M.D. Performed By: #### P T, PTT, CMP, MG, TSH3, CBC, HS TROP #### [facility] [address] [place] [address] [place] Platelet mean volume [Entiti c volume] in Blood by Automated countOrdered By: Shahbaz Lehman on 03-19-2024 Platelet mean volume (Bld) [Entitic vol] 9.2 fL Normal 6.6-10.1 [facility] Comment on above: Performed By: #### P T, PTT, CMP, MG, TSH3, CBC, HS TROP #### [facility] [address] [place] [address] [place] Platelets [#/volume] in Bloo d by Automated countOrdered By: Shahbaz Lehman on 03-19-2024 Platelets (Bld) [#/Vol] 239 10*3/uL Normal 150-450 [facility] Comment on above: Performed By: #### P T, PTT, CMP, MG, TSH3, CBC, HS TROP #### [facility] [address] Potassium [Moles/volume] in Serum or PlasmaOrdered By: Shahbaz Lehman on 03-19-2024 Potassium [Moles/Vol] 3.6 mmol/L Normal 3.5-5.1 [facility] Comment on above: Performed By: #### P T, PTT, CMP, MG, TSH3, CBC, HS TROP #### [facility] [address] [place] [id number] [facility] Protein Test strip (U) [Mass /Vol]Ordered By: Shahbaz Lehman on 03-19-2024 Protein (U) [Mass/Vol] Negative Negative [facility] Protein [Mass/volume] in Ser um or PlasmaOrdered By: Shahbaz Lehman on 03-19-2024 Protein [Mass/Vol] 6.7 g/dL Normal 6.4-8.9 [facility] Comment on above: Performed By: #### P T, PTT, CMP, MG, TSH3, CBC, HS TROP #### [facility] [address] [place] [id number] [facility] Prothrombin time (PT)Ordered By: Shahbaz Lehman on 03-19-2024 PT Coag (PPP) [Time] 11.6 s Normal 9.0-12.9 [facility] Comment on above: A hematocrit value g reater than 55% may lead to inaccurate results in coagulation testing. Patients having hematocrit values >55% require a special collection tube for coagulation studies. Please contact the laboratory at [phone] for redraw instructions. Result Comment: A he matocrit value greater than 55% may lead to inaccurate results in coagulation testing. Patients having hematocrit values >55% require a special collection tube for coagulation studies. Please contact the laboratory at [phone] for redraw instructions. Performed By: #### P T, PTT, CMP, MG, TSH3, CBC, HS TROP #### [facility] [address] [id number] [facility] Serum globulin measurement b y calculation (mass/volume)Ordered By: Shahbaz Lehman on 03-19-2024 Globulin (S) [Mass/Vol] 3.0 g/dL Normal [facility] Comment on above: Performed By: #### P T, PTT, CMP, MG, TSH3, CBC, HS TROP #### [facility] [address] [place] [address] Serum or plasma albumin/glob ulin mass ratioOrdered By: Shahbaz Lehman on 03-19-2024 Albumin/Globulin [Mass ratio] 1.2 {ratio} Normal [facility] Comment on above: Performed By: #### P T, PTT, CMP, MG, TSH3, CBC, HS TROP #### [facility] [address] [place] [address] Serum or plasma anion gap de terminationOrdered By: Shahbaz Lehman on 03-19-2024 Anion gap [Moles/Vol] 11.0 mmol/L Normal 6.0-15.0 [facility] Comment on above: Performed By: #### P T, PTT, CMP, MG, TSH3, CBC, HS TROP #### [address] Sodium [Moles/volume] in Ser um or PlasmaOrdered By: Shahbaz Lehman on 03-19-2024 Sodium [Moles/Vol] 138 mmol/L Normal 136-145 [facility] Comment on above: Performed By: #### P T, PTT, CMP, MG, TSH3, CBC, HS TROP #### [facility] [address] [place] [address] Specific gravity Test strip (U) [Rel density]Ordered By: Shahbaz Lehman on 03-19-2024 Specific gravity (U) [Rel density] 1.010 1.001-1.030 [facility] Thyrotropin [Units/volume] i n Serum or PlasmaOrdered By: Shahbaz Lehman on 03-19-2024 TSH Qn 3.36 m[IU]/L Normal 0.45-5.33 [facility] Comment on above: Result Comment: PERF ORMED BY: [place] [address] PATHOLOGIST WASHER CUTTER ALEX CROWLEY M.D. Performed By: #### P T, PTT, CMP, MG, TSH3, CBC, HS TROP ####[facility] [address] [id number] [place] Troponin I High Sensitivityo n 03-19-2024 Troponin I High Sensitivity 18.2 pg/mL Normal 0.0-20.0 [facility] Comment on above: Result Comment: PERF ORMED BY: [place] [address] PATHOLOGIST WASHER CUTTER ALEX CROWLEY M.D. Performed By: #### H S TROP ####[address] Troponin I High Sensitivity 19.4 pg/mL Normal 0.0-20.0 [facility] Comment on above: Result Comment: PERF ORMED BY: [place] [address] PATHOLOGIST WASHER CUTTER ALEX CROWLEY M.D. Performed By: #### P T, PTT, CMP, MG, TSH3, CBC, HS TROP #### [facility] [address] [place] [address] Troponin I.cardiac [Mass/vol ume] in Serum or Plasma by Detection limit <= 0.01 ng/Ordered By: Deborah Lamar on 03-19-2024 Troponin I.cardiac DL <= 0.01 ng/mL [Mass/Vol] 18.2 pg/mL 0.0-20.0 [facility] Troponin I.cardiac [Mass/vol ume] in Serum or Plasma by Detection limit <= 0.01 ng/Ordered By: Shahbaz Lehman on 03-19-2024 Troponin I.cardiac DL <= 0.01 ng/mL [Mass/Vol] 19.4 pg/mL 0.0-20.0 [facility] Urea nitrogen [Mass/volume] in Serum or PlasmaOrdered By: Shahbaz Lehman on 03-19-2024 Urea nitrogen [Mass/Vol] 26 mg/dL High 7-25 [facility] Comment on above: Performed By: #### P T, PTT, CMP, MG, TSH3, CBC, HS TROP #### [facility] [address] [place] [address] [facility] Urinalysison 03-19-2024 Bilirubin,Urine Negative Normal Negative [facility] Comment on above: Order Comment: Name Collection Type:: Clean-Voided Midstream Performed By: #### U A ####[address] [place] [address] [facility] Glucose Ql (U) Normal Normal Normal [facility] Comment on above: Order Comment: Name Collection Type:: Clean-Voided Midstream Performed By: #### U A ####[address] [address] [facility] Nitrite,Urine Negative Normal Negative [facility] Comment on above: Order Comment: Name Collection Type:: Clean-Voided Midstream Performed By: #### U A ####[address] [address] [facility] Occult Blood,Urine Negative Normal Negative [facility] Comment on above: Order Comment: Name Collection Type:: Clean-Voided Midstream Result Comment: PERF ORMED BY: [facility] [address] [id number] PATHOLOGIST WASHER CUTTER ALEX CROWLEY M.D. Performed By: #### U A ####[address] [address] [facility] Protein,Urine Negative Normal Negative [facility] Comment on above: Order Comment: Name Collection Type:: Clean-Voided Midstream Performed By: #### U A ####[address] [address] [facility] Specificy [place],Urine 1.010 Normal 1.001-1.030 [facility] Comment on above: Order Comment: Name Collection Type:: Clean-Voided Midstream Performed By: #### U A ####[address] [address] [facility] Urobilinogen,Urine Normal Normal Normal [facility] Comment on above: Order Comment: Name Collection Type:: Clean-Voided Midstream Performed By: #### U A ####[address] [id number] [facility] Urine appearanceOrdered By: Shahbaz Lehman on 03-19-2024 Appearance (U) Clear Normal Clear [facility] Comment on above: Order Comment: Name Collection Type:: Clean-Voided Midstream Performed By: #### U A ####[facility] [address] [place] [address] [facility] Urobilinogen Test strip (U) [Mass/Vol]Ordered By: Shahbaz Lehman on 03-19-2024 Urobilinogen (U) [Mass/Vol] Normal mg/dL Normal [facility] XR chest 2V*on 03-19-2024 XR chest 2V* [facility] Main [place] [address] [id number] XRay Report Signed Patient: Cristal Gu MR#: [id number] : 1955 Acct:[id number] Age/Sex: 69 / M ADM Date: 03/19/24 Loc: ER Room: Type: [facility] ER Attending Dr: Copies to: Shahbaz [...] FINDINGS. Impression dictated by: Star Mark Jr., D.O.03/19/2024 11:49 AM Dictation Location: [address] [place] [address] Transcribed By: SEA 03/19/24 1149 Dictated By: Star Mark Jr, DO 03/19/24 1148 Signed By: 03/19/24 1149 Normal [facility] pH of Urine by Test stripOrd ered By: Shahbaz Lehman on 03-19-2024 pH (U) 6.5 [pH] Normal 5.0-9.0 [facility] Comment on above: Order Comment: Name Collection Type:: Clean-Voided Midstream Performed By: #### U A ####[facility] [address] [place] [address] [facility] CBC W Auto Differential pane l (Bld)on 03-18-2024 Basophils (Bld) [#/Vol] 10*3/uL Normal <0.11 [facility] Comment on above: Order Comment: Speci men Type: BLOOD SPECIMENOrdering Facility: [facility] Address: [address] [place] [address] Performed By: #### 5 7021-8 ####[facility] LABCLIA [id number] [place] [address] Basophils/100 WBC (Bld) 0.2 % Normal [facility] Comment on above: Order Comment: Speci men Type: BLOOD SPECIMENOrdering Facility: [facility] Address: [address] [place] [address] Performed By: #### 5 7021-8 ####[facility] LABCLIA [id number] [place] [address] Differential cell count method Nom (Bld) Auto Normal [facility] Comment on above: Order Comment: Speci men Type: BLOOD SPECIMENOrdering Facility: [facility] Address: [address] [place] [address] Performed By: #### 5 7021-8 ####[facility] LABCLIA [id number] [place] [address] Eosinophils (Bld) [#/Vol] 0.03 10*3/uL Normal <0.46 [facility] Comment on above: Order Comment: Speci men Type: BLOOD SPECIMENOrdering Facility: [facility] Address: [address] [place] [address] Performed By: #### 5 7021-8 ####[facility] LABCLIA [id number] [place] [address] Eosinophils/100 WBC (Bld) 0.3 % Normal [facility] Comment on above: Order Comment: Speci men Type: BLOOD SPECIMENOrdering Facility: [facility] Address: [address] [place] [address] Performed By: #### 5 7021-8 ####[facility] LABCLIA [id number] [place] [address] Erythrocyte distribution width (RBC) [Ratio] 13.2 % Normal 11.5-15.0 [facility] Comment on above: Order Comment: Speci men Type: BLOOD SPECIMENOrdering Facility: [facility] Address: [address] [place] [address] Performed By: #### 5 7021-8 ####[facility] LABCLIA [id number] [place] [address] Hematocrit (Bld) [Volume fraction] 33.8 % Low 39.0-51.0 [facility] Comment on above: Order Comment: Speci men Type: BLOOD SPECIMENOrdering Facility: [facility] Address: [address] [place] [address] Performed By: #### 5 7021-8 ####[facility] LABCLIA [id number] [place] [address] Hemoglobin (Bld) [Mass/Vol] 11.3 g/dL Low 13.0-17.0 [facility] Comment on above: Order Comment: Speci men Type: BLOOD SPECIMENOrdering Facility: [facility] Address: [address] [place] [address] Performed By: #### 5 7021-8 ####[facility] LABCLIA [id number] [place] [address] Immature granulocytes (Bld) [#/Vol] 0.05 10*3/uL Normal <0.10 [facility] Comment on above: Order Comment: Speci men Type: BLOOD SPECIMENOrdering Facility: [facility] Address: [address] [place] [address] Performed By: #### 5 7021-8 ####[facility] LABCLIA [id number] [place] [address] Immature granulocytes/100 WBC (Bld) 0.6 % Normal [facility] Comment on above: Order Comment: Speci men Type: BLOOD SPECIMENOrdering Facility: [facility] Address: [address] [place] [address] Performed By: #### 5 7021-8 ####[facility] LABCLIA [id number] [place] [address] Lymphocytes (Bld) [#/Vol] 0.85 10*3/uL Low 1.00-4.00 [facility] Comment on above: Order Comment: Speci men Type: BLOOD SPECIMENOrdering Facility: [facility] Address: [address] [place] [address] Performed By: #### 5 7021-8 ####[facility] LABCLIA [id number] [place] [address] Lymphocytes/100 WBC (Bld) 9.9 % Normal [facility] Comment on above: Order Comment: Speci men Type: BLOOD SPECIMENOrdering Facility: [facility] Address: [address] [place] [address] Performed By: #### 5 7021-8 ####[facility] LABCLIA [id number] [place] [address] MCH (RBC) [Entitic mass] 31.0 pg Normal 26.0-34.0 [facility] Comment on above: Order Comment: Speci men Type: BLOOD SPECIMENOrdering Facility: [facility] Address: [address] [place] [address] Performed By: #### 5 7021-8 ####[facility] LABCLIA [id number] [place] [address] MCHC (RBC) [Mass/Vol] 33.4 g/dL Normal 30.5-36.0 [facility] Comment on above: Order Comment: Speci men Type: BLOOD SPECIMENOrdering Facility: [facility] Address: [address] [place] [address] Performed By: #### 5 7021-8 ####[facility] LABCLIA [id number] [place] [address] MCV (RBC) [Entitic vol] 92.6 fL Normal 80.0-100.0 [facility] Comment on above: Order Comment: Speci men Type: BLOOD SPECIMENOrdering Facility: [facility] Address: [address] [place] [address] Performed By: #### 5 7021-8 ####[facility] LABCLIA [id number] [place] [address] Monocytes (Bld) [#/Vol] 0.82 10*3/uL Normal <0.87 [facility] Comment on above: Order Comment: Speci men Type: BLOOD SPECIMENOrdering Facility: [facility] Address: [address] [place] [address] Performed By: #### 5 7021-8 ####[facility] LABCLIA [id number] [place] [address] Monocytes/100 WBC (Bld) 9.6 % Normal [facility] Comment on above: Order Comment: Speci men Type: BLOOD SPECIMENOrdering Facility: [facility] Address: [address] [place] [address] Performed By: #### 5 7021-8 ####[facility] LABCLIA [id number] [place] [address] Neutrophils (Bld) [#/Vol] 6.81 10*3/uL Normal 1.45-7.50 [facility] Comment on above: Order Comment: Speci men Type: BLOOD SPECIMENOrdering Facility: [facility] Address: [address] [place] [address] Performed By: #### 5 7021-8 ####[facility] LABCLIA [id number] [place] [address] Neutrophils/100 WBC (Bld) 79.4 % Normal [facility] Comment on above: Order Comment: Speci men Type: BLOOD SPECIMENOrdering Facility: [facility] Address: [address] [place] [address] Performed By: #### 5 7021-8 ####[facility] LABCLIA [id number] [place] [address] Nucleated RBC (Bld) [#/Vol] 10*3/uL Normal <0.01 [facility] Comment on above: Order Comment: Speci men Type: BLOOD SPECIMENOrdering Facility: [facility] Address: [address] [place] [address] Performed By: #### 5 7021-8 ####[facility] LABCLIA [id number] [place] [address] Nucleated RBC/100 WBC (Bld) [Ratio] 0.0 /100 WBC Normal [facility] Comment on above: Order Comment: Speci men Type: BLOOD SPECIMENOrdering Facility: [facility] Address: [address] [place] [address] Performed By: #### 5 7021-8 ####[facility] LABCLIA [id number] [place] [address] Platelet mean volume (Bld) [Entitic vol] 10.4 fL Normal 9.0-12.7 [facility] Comment on above: Order Comment: Speci men Type: BLOOD SPECIMENOrdering Facility: [facility] Address: [address] [place] [address] Performed By: #### 5 7021-8 ####[facility] LABCLIA [id number] [place] [address] Platelets (Bld) [#/Vol] 250 10*3/uL Normal 150-400 [facility] Comment on above: Order Comment: Speci men Type: BLOOD SPECIMENOrdering Facility: [facility] Address: [address] [place] [address] Performed By: #### 5 7021-8 ####[facility] LABCLIA [id number] [place] [address] RBC (Bld) [#/Vol] 3.65 10*6/uL Low 4.20-6.00 [facility] Comment on above: Order Comment: Speci men Type: BLOOD SPECIMENOrdering Facility: [facility] Address: [address] [place] [address] Performed By: #### 5 7021-8 ####[facility] LABCLIA [id number] [place] [address] WBC (Bld) [#/Vol] 8.58 10*3/uL Normal 3.70-11.00 [facility] Comment on above: Order Comment: Speci men Type: BLOOD SPECIMENOrdering Facility: [facility] Address: [address] [place] [address] Performed By: #### 5 7021-8 ####[facility] LABCLIA [id number] [place] [address] CNOVSPon 03-18-2024 CNOVSP Normal [facility] Comprehensive metabolic 2000 panelon 03-18-2024 Albumin [Mass/Vol] 4.2 g/dL Normal 3.9-4.9 [facility] Comment on above: Order Comment: Speci men Type: BLOOD SPECIMENOrdering Facility: [facility] Address: [address] [place] [address] Performed By: #### 2 4323-8 ####[facility] LABCLIA [id number] [place] [address] ALP [Catalytic activity/Vol] 43 U/L Normal 38-113 [facility] Comment on above: Order Comment: Speci men Type: BLOOD SPECIMENOrdering Facility: [facility] Address: [address] [place] [address] Performed By: #### 2 4323-8 ####[facility] LABCLIA [id number] [place] [address] ALT [Catalytic activity/Vol] 7 U/L Low 10-54 [facility] Comment on above: Order Comment: Speci men Type: BLOOD SPECIMENOrdering Facility: [facility] Address: [address] [place], [place] [address] Performed By: #### 2 4323-8 ####[facility] LABCLIA [id number] [place] [address] Anion gap [Moles/Vol] 9 mmol/L Normal 8-15 [facility] Comment on above: Order Comment: Speci men Type: BLOOD SPECIMENOrdering Facility: [facility] Address: [address] [place] [address] Performed By: #### 2 4323-8 ####[facility] LABCLIA [id number] [place] [address] AST [Catalytic activity/Vol] 11 U/L Low 14-40 [facility] Comment on above: Order Comment: Speci men Type: BLOOD SPECIMENOrdering Facility: [facility] Address: [address] [place] [address] Performed By: #### 2 4323-8 ####[facility] LABCLIA [id number] [place] [address] Bilirubin [Mass/Vol] 0.3 mg/dL Normal 0.2-1.3 [facility] Comment on above: Order Comment: Speci men Type: BLOOD SPECIMENOrdering Facility: [facility] Address: [address] [place] [address] Performed By: #### 2 4323-8 ####[facility] LABCLIA [id number] [place] [address] Calcium [Mass/Vol] 10.0 mg/dL Normal 8.5-10.2 [facility] Comment on above: Order Comment: Speci men Type: BLOOD SPECIMENOrdering Facility: [facility] Address: [address] [place] [address] Performed By: #### 2 4323-8 ####[facility] LABCLIA [id number] [place] [address] Chloride [Moles/Vol] 103 mmol/L Normal 98-107 [facility] Comment on above: Order Comment: Speci men Type: BLOOD SPECIMENOrdering Facility: [facility] Address: [address] [place] [address] Performed By: #### 2 4323-8 ####[facility] LABCLIA [id number] [place] [address] CO2 [Moles/Vol] 27 mmol/L Normal 22-30 [facility] Comment on above: Order Comment: Speci men Type: BLOOD SPECIMENOrdering Facility: [facility] Address: [address] [place] [address] Performed By: #### 2 4323-8 ####[facility] LABCLIA [id number] [place] [address] Creatinine [Mass/Vol] 1.08 mg/dL Normal 0.73-1.22 [facility] Comment on above: Order Comment: Speci men Type: BLOOD SPECIMENOrdering Facility: [facility] Address: [address] [place] [address] Performed By: #### 2 4323-8 ####[facility] LABCLIA [id number] [place] [address] Creatinine and Glomerular filtration rate.predicted panel (S/P/Bld) 75 mL/min/1.73m??? Normal >=60 [facility] Comment on above: Order Comment: Speci men Type: BLOOD SPECIMENOrdering Facility: [facility] Address: [address] [place] [address] Result Comment: Landy mated Glomerular Filtration Rate [...] actual GFR. Performed By: #### 2 4323-8 ####[facility] LABCLIA [id number] [place] [address] Glucose [Mass/Vol] 87 mg/dL Normal 74-99 [facility] Comment on above: Order Comment: Ajay rausch Type: BLOOD SPECIMENOrdering Facility: [facility] Address: [address] [place], [place] [address] Result Comment: The [place] [employer] (ADA) provides guidance for cutoff [...] Standards of Medical Care in Diabetes 2016, [place] [employer]. Diabetes Care. 2016.39(Suppl 1). Performed By: #### 2 4323-8 ####[facility] LABCLIA [id number] [place] [address] Potassium [Moles/Vol] 4.1 mmol/L Normal 3.7-5.1 [facility] Comment on above: Order Comment: Ajay rausch Type: BLOOD SPECIMENOrdering Facility: [facility] Address: [address] [place] [address] Performed By: #### 2 4323-8 ####[facility] LABCLIA [id number] [place] [address] Protein [Mass/Vol] 6.9 g/dL Normal 6.3-8.0 [facility] Comment on above: Order Comment: Ajay rausch Type: BLOOD SPECIMENOrdering Facility: [facility] Address: [address] [place], [place] [address] Performed By: #### 2 4323-8 ####[facility] LABCLIA [id number] [place] [address] Sodium [Moles/Vol] 139 mmol/L Normal 136-144 [facility] Comment on above: Order Comment: Speci men Type: BLOOD SPECIMENOrdering Facility: [facility] Address: [address] [place], [place] [address] Performed By: #### 2 4323-8 ####[facility] LABCLIA [id number] [place] [address] Urea nitrogen [Mass/Vol] 27 mg/dL High 9-24 [facility] Comment on above: Order Comment: Speci men Type: BLOOD SPECIMENOrdering Facility: [facility] Address: [address] [place], [place] [address] Performed By: #### 2 4323-8 ####[facility] LABCLIA [id number] [place] [address] ECG 12 lead ECGon 03-18-2024 ECG 12 lead ECG [facility] [place] [address] Electrocardiograph Report Signed Patient: Cristal Gu MR#: [id number] : 1955 Acct:[id number] Age/Sex: 69 / M ADM Date: 03/18/24 Loc: ER Room: Type: [facility] ER Attending Dr: Ordering Provider: Abel [...] change was found Confirmed by Jonathan Chan ([id number]) on 03/20/2024 6:35:46 PM Referred By: Electronically Signed By: Jonathan Chan Transcribed By: MUS Signed By Jonathan Chan MD 03/20/24 1835 Normal [facility] TSH SerPl-aCncon 03-18-2024 TSH Qn 6.660 m[IU]/L High 0.270-4.200 [facility] Comment on above: Order Comment: Speci men Type: BLOOD SPECIMENOrdering Facility: [facility] Address: [address] [place] [address] Performed By: #### 3 016-3 ####[facility] LABCLIA [id number] [facility] [id number] [facility] Ambulatory Visit Summaryon 0 03-17-2024 Ambulatory Visit [...] 10:00 AM EDT With: Enrique Austin Where: [address] [address]- Friday 11:00 AM EDT With: Where: [address] [address]- Medications What How Much When Instructions Unchanged [...] for choosing us for your care. Normal [facility] Family Medicine Office/Clini c Noteon 03-17-2024 Family [...] was scheduled to see someone at [facility] for his left arm pain but [...] (COVID-19) mRNA-1273 vaccine 11/15/2020 Recorded Normal [facility] Comment on above: Result Comment: Elec tronically Signed By: Cate MENARD, Enrique Beatty\.br\Date and Time Signed: 08/28/24 12:13 EDT CNOVon 03-15-2024 CNOV Normal [facility] CNPNon 03-15-2024 CNPN Normal [facility] [facility] CNPNon 03-09-2024 CNPN Normal [facility] GLUCOSE, BLOOD (POC)on 03-09 Glucose [Mass/Vol] 93 mg/dL 74 - 99 mg/dL [facility] Comment on above: Location:[facility], [address] [place] [address] , [place], [place], [address] The Accu-Chek Inform II glucose meter has [...] blood gas instrument) in the above situations. [facility] NM PET/CT SKULL-THIGH SUBQon 03-09-2024 NM PET/CT SKULL-THIGH SUBQ Normal [facility] PET+CT Guidance for localiza tion [...] the report reviewed and electronically signed by: JLIL MARION MD on Mar 09 2024 6:22PM EST Thank you for allowing us to participate in the care of your patient. Should there be any questions regarding this interpretation, please call [phone]. If you are unable to reach us at the number above, please feel free to contact [facility] at [phone]. DIVISION OF RADIOLOGY * * *Final Report* [...] mCi * Uptake Time: minutes * Radiopharmaceutical: D24-Sbohbmrnpgjncgbd se (FDG) COMPARISON: PET/CT 11/25/2023 RESULT: REFERENCES: [...] radiotracer avid lesion. DIVISION OF RADIOLOGY Provider, [facility] [place] - 03/09/2024 * * *Final Report* * [...] mCi * Uptake Time: minutes * Radiopharmaceutical: Q82-Trljrsevxibnrxix se (FDG) COMPARISON: PET/CT 11/25/2023 RESULT: REFERENCES: [...] any questions regarding this interpretation, please call [phone]. If you are unable to reach us at the number above, please feel free to contact [facility] eRadiology at [phone]. [facility] Radiology Study observation (narrative) [facility] PET+CT Guidance for localiza tion of tumor of Skull base to mid-thigh-- W 18F-FDG IVOrdered By: Ccf Provider on 03-09-2024 [facility] CNPNon 03-01-2024 CNPN Normal [facility] Family Medicine Office/Clini c Noteon 03-01-2024 Family Medicine Office/Clinic Note Family Medicine Office/Clinic Note HPI Staff Vasquez is a 69 year old male presenting for ER follow up ER followup: Hospital: [place] Visit date: 02/20/24 Symptoms the patient presented [...] [facility] pt was provided Dr. Guaman's phone [...] SARS-CoV-2 (COVID-19) mRNA-1273 vaccine 11/15/2020 Recorded Normal [facility] Comment on above: Result Comment: Elec tronically Signed By: Enrique Austin\Date and Time Signed: 03/01/24 11:20 EDT CNPNon 02-24-2024 CNPN Normal [facility] CNPNon 02-20-2024 CNPN Normal [facility] CNPNon 02-18-2024 CNPN Normal [facility] CNPNon 02-16-2024 CNPN Normal [facility] CNPNon 02-10-2024 CNPN Normal [facility] XR chest 2V*on 02-08-2024 XR chest 2V* [facility] [place] [address] [place] [address] XRay Report Signed Patient: Cristal Gu MR#: [id number] : 1955 Acct:[id number] Age/Sex: 68 / M ADM Date: 02/07/24 Loc: ER Room: Type: [facility] ER Attending Dr: Copies to: John [...] Buzz Barroso M.D.02/08/2024 9:12 AM Dictation Location: [place] [address] Transcribed By: [facility] 02/08/24911 Dictated By: Buzz Barroso DO 02/08/24909 Signed By: 02/08/24911 Normal [facility] Alanine aminotransferase [En zymatic activity/volume] in Serum or PlasmaOrdered By: John Dominguez on 02-07-2024 ALT [Catalytic activity/Vol] 10 U/L Normal 7-52 [facility] Comment on above: Performed By: #### B SECRETARY, CMP, CK, HS TROP, SCAN CBC ####[address] Albumin [Mass/volume] in Ser um or Plasma by Bromocresol green (BCG) dye binding methoOrdered By: John Dominguez on 02-07-2024 Albumin BCG dye [Mass/Vol] 3.6 g/dL 3.5-5.7 [facility] Alkaline phosphatase [Enzyma tic activity/volume] in Serum or PlasmaOrdered By: John Dominguez on 02-07-2024 ALP [Catalytic activity/Vol] 38 U/L Normal 34-104 [facility] Comment on above: Performed By: #### B SECRETARY, CMP, CK, HS TROP, SCAN CBC ####[address] Aspartate aminotransferase [ Enzymatic activity/volume] in Serum or PlasmaOrdered By: John Dominguez on 02-07-2024 AST [Catalytic activity/Vol] 20 U/L Normal 13-39 [facility] Comment on above: Performed By: #### B SECRETARY, CMP, CK, HS TROP, SCAN CBC ####[address] Automated basophil %Ordered By: John Dominguez on 02-07-2024 Basophils/100 WBC (Bld) 0.7 % Normal . [facility] Comment on above: Performed By: #### B SECRETARY, CMP, CK, HS TROP, SCAN CBC ####[address] Automated basophil countOrde red By: John Dominguez on 02-07-2024 Basophils (Bld) [#/Vol] 0.0 10*3/uL Normal 0.0-0.2 [facility] Comment on above: Performed By: #### B SECRETARY, CMP, CK, HS TROP, SCAN CBC ####[address] Automated blood monocyte cou ntOrdered By: John Dominguez on 02-07-2024 Monocytes (Bld) [#/Vol] 0.4 10*3/uL Normal 0.0-0.8 [facility] Comment on above: Performed By: #### B SECRETARY, CMP, CK, HS TROP, SCAN CBC ####[place] [id number] [address] Automated eosinophil %Ordere d By: John Dominguez on 02-07-2024 Eosinophils/100 WBC (Bld) 0.1 % Normal . [facility] Comment on above: Performed By: #### B SECRETARY, CMP, CK, HS TROP, SCAN CBC ####[address] Automated eosinophil countOr dered By: John Dominguez on 02-07-2024 Eosinophils (Bld) [#/Vol] 0.0 10*3/uL Normal 0.0-0.45 [facility] Comment on above: Performed By: #### B SECRETARY, CMP, CK, HS TROP, SCAN CBC ####[address] Automated monocyte %Ordered By: John Dominguez on 02-07-2024 Monocytes/100 WBC (Bld) 9.5 % Normal . [facility] Comment on above: Performed By: #### B SECRETARY, CMP, CK, HS TROP, SCAN CBC ####[address] Automated neutrophil %Ordere d By: John Dominguez on 02-07-2024 Neutrophils/100 WBC (Bld) 75.4 % Normal . [facility] Comment on above: Performed By: #### B SECRETARY, CMP, CK, HS TROP, SCAN CBC ####[address] BNP ser/plasOrdered By: John Dominguez on 02-07-2024 Natriuretic peptide B (Bld) [Mass/Vol] 123.0 pg/mL High 5-100 [facility] Comment on above: Result Comment: PERF ORMED BY: [facility] [address] [place] [address] PATHOLOGIST WASHER CUTTER ALEX CROWLEY M.D. Performed By: #### B SECRETARY, CMP, CK, HS TROP, SCAN CBC ####[address] Bilirubin.total [Mass/volume ] in Serum or PlasmaOrdered By: John Dominguez on 02-07-2024 Bilirubin [Mass/Vol] 0.7 mg/dL Normal 0.3-1.0 [facility] Comment on above: Performed By: #### B SECRETARY, CMP, CK, HS TROP, SCAN CBC ####[address] Calcium [Mass/volume] in Ser um or PlasmaOrdered By: John Dominguez on 02-07-2024 Calcium [Mass/Vol] 9.4 mg/dL Normal 8.6-10.3 [facility] Comment on above: Performed By: #### B SECRETARY, CMP, CK, HS TROP, SCAN CBC ####[place] [id number] [facility] Carbon dioxide, total [Moles /volume] in Serum or PlasmaOrdered By: John Dominguez on 02-07-2024 CO2 [Moles/Vol] 23.7 mmol/L Normal 21.0-31.0 [facility] Comment on above: Performed By: #### B SECRETARY, CMP, CK, HS TROP, SCAN CBC ####[place] [id number] [facility] Chloride [Moles/volume] in S juanpablo or PlasmaOrdered By: John Dominguez on 02-07-2024 Chloride [Moles/Vol] 100 mmol/L Normal 98-107 [facility] Comment on above: Performed By: #### B SECRETARY, CMP, CK, HS TROP, SCAN CBC ####[place] [id number] [facility] Comprehensive Metabolic Pane tim 02-07-2024 Albumin [Mass/Vol] 3.6 g/dL Normal 3.5-5.7 [facility] Comment on above: Performed By: #### B SECRETARY, CMP, CK, HS TROP, SCAN CBC ####[place] [id number] [address] Creatinine Clr Calc Pharmacy 47.99 Normal [facility] Comment on above: Result Comment: PERF ORMED BY: [place] [address] PATHOLOGIST WASHER CUTTER ALEX CROWLEY M.D. Performed By: #### B SECRETARY, CMP, CK, HS TROP, SCAN CBC ####[address] GFR/1.73 sq M.predicted MDRD (S/P/Bld) [Vol rate/Area] mL/min/{1.73_m2} Normal [facility] Comment on above: Performed By: #### B SECRETARY, CMP, CK, HS TROP, SCAN CBC ####[address] Creatine kinase [Enzymatic a ctivity/volume] in Serum or PlasmaOrdered By: John Dominguez on 02-07-2024 CK [Catalytic activity/Vol] 54 U/L Normal 30-223 [facility] Comment on above: Performed By: #### B SECRETARY, CMP, CK, HS TROP, SCAN CBC ####[address] Creatinine [Mass/volume] in Serum or PlasmaOrdered By: John Dominguez on 02-07-2024 Creatinine [Mass/Vol] 1.12 mg/dL Normal 0.70-1.30 [facility] Comment on above: Performed By: #### B SECRETARY, CMP, CK, HS TROP, SCAN CBC ####[place] [id number] [facility] ECG 12 lead ECGon 02-07-2024 ECG 12 lead ECG [facility] [place] [address] [place] [address] Electrocardiograph Report Signed Patient: Cristal Gu MR#: [id number] : 1955 Acct:[id number] Age/Sex: 68 / M ADM Date: 02/07/24 Loc: ER Room: Type: [facility] ER Attending Dr: Ordering Provider: John [...] John Dominguez MD 02/08/24 0020 Normal [facility] Erythrocyte distribution wid th [Ratio] by Automated countOrdered By: John Dominguez on 02-07-2024 Erythrocyte distribution width (RBC) [Ratio] 14.9 % High 12.0-14.8 [facility] Comment on above: Performed By: #### B SECRETARY, CMP, CK, HS TROP, SCAN CBC ####[facility] [id number] [place] [address] [facility] Erythrocytes [#/volume] in B lood by Automated countOrdered By: John Dominguez on 02-07-2024 RBC (Bld) [#/Vol] 3.76 10*6/uL Low 3.90-5.60 [facility] Comment on above: Performed By: #### B SECRETARY, CMP, CK, HS TROP, SCAN CBC ####[facility] [id number] [place] [address] [facility] Glucose [Mass/volume] in Ser um or PlasmaOrdered By: John Dominguez on 02-07-2024 Glucose [Mass/Vol] 168 mg/dL High 70-100 [facility] Comment on above: ADA recommended refe rence rangeRandom Glucose Reference Range is dependent on time and content of last meal. Glucose of more than 200 mg/dL in a nonstressed, ambulatory subject supports the diagnosis of Diabetes Mellitus. Result Comment: [place] om Glucose Reference Range is dependent on time and content of last meal. Glucose of more than 200 mg/dL in a nonstressed, ambulatory subject supports the diagnosis of Diabetes Mellitus. ADA recommended reference range Performed By: #### B SECRETARY, CMP, CK, HS TROP, SCAN CBC ####[address] Hematocrit [Volume Fraction] of Blood by Automated countOrdered By: John Dominguez on 02-07-2024 Hematocrit (Bld) [Volume fraction] 35.7 % Low 38.8-50.0 [facility] Comment on above: Performed By: #### B SECRETARY, CMP, CK, HS TROP, SCAN CBC ####[address] Hemoglobin [Mass/volume] in BloodOrdered By: John Dominguez on 02-07-2024 Hemoglobin (Bld) [Mass/Vol] 12.1 g/dL Low 13.0-17.0 [facility] Comment on above: Performed By: #### B SECRETARY, CMP, CK, HS TROP, SCAN CBC ####[address] Leukocytes [#/volume] correc nani for nucleated erythrocytes in Blood by Automated counOrdered By: John Dominguez on 02-07-2024 WBC corrected for nucl RBC Auto (Bld) [#/Vol] 4.0 10*3/uL Low 4.1-10.5 [facility] Leukocytes [#/volume] in Blo od by Automated countOrdered By: John Dominguez on 02-07-2024 WBC (Bld) [#/Vol] 4.0 10*3/uL Low 4.1-10.5 [facility] Comment on above: Performed By: #### B SECRETARY, CMP, CK, HS TROP, SCAN CBC ####[address] Lymphocytes [#/volume] in Bl ood by Automated countOrdered By: John Dominguez on 02-07-2024 Lymphocytes (Bld) [#/Vol] 0.6 10*3/uL Low 1.00-4.8 [facility] Comment on above: Performed By: #### B SECRETARY, CMP, CK, HS TROP, SCAN CBC ####[place] [id number] [address] Lymphocytes/100 leukocytes i n Blood by Automated countOrdered By: John Dominguez on 02-07-2024 Lymphocytes/100 WBC (Bld) 14.3 % Normal . [facility] Comment on above: Performed By: #### B SECRETARY, CMP, CK, HS TROP, SCAN CBC ####[address] MCH [Entitic mass] by Automa nani countOrdered By: John Dominguez on 02-07-2024 MCH (RBC) [Entitic mass] 32.1 pg Normal 27.5-35.2 [facility] Comment on above: Performed By: #### B SECRETARY, CMP, CK, HS TROP, SCAN CBC ####[address] MCHC Auto (RBC) [Mass/Vol]Or dered By: John Dominguez on 02-07-2024 MCHC (RBC) [Mass/Vol] 33.8 g/dL 32.5-35.6 [facility] MCV [Entitic volume] by Auto mated countOrdered By: John Dominguez on 02-07-2024 MCV (RBC) [Entitic vol] 94.9 fL Normal 83.5-101 [facility] Comment on above: Performed By: #### B SECRETARY, CMP, CK, HS TROP, SCAN CBC ####[address] Monocyte distribution width [Entitic volume] in Blood by AutomatedOrdered By: John Dominguez on 02-07-2024 Monocyte distribution width Auto (Bld) [Entitic vol] 19.12 % 0.00-20.00 [facility] Neutrophils [#/volume] in Bl ood by Automated countOrdered By: John Dominguez on 02-07-2024 Neutrophils (Bld) [#/Vol] 3.0 10*3/uL Normal 1.8-7.7 [facility] Comment on above: Performed By: #### B SECRETARY, CMP, CK, HS TROP, SCAN CBC ####[address] [place] [address] [place] No Panel InformationOrdered By: John Dominguez on 02-07-2024 Estimated GFR (CKD-EPI) > 60.0 mL/Min [facility] Creatinine Clearance (Chem 47.99 [facility] Nucleated erythrocytes [Pres ence] in Blood by Automated countOrdered By: John Dominguez on 02-07-2024 Nucleated RBC Auto Ql (Bld) 0.1 /100{WBC} 0-0.5 [facility] Platelet adequacy [Presence] in Blood by Light microscopyOrdered By: John Dominguez on 02-07-2024 Platelets LM Ql (Bld) Normal Normal [facility] Platelet mean volume [Entiti c volume] in Blood by Automated countOrdered By: John Dominguez on 02-07-2024 Platelet mean volume (Bld) [Entitic vol] 10.5 fL High 6.6-10.1 [facility] Comment on above: Performed By: #### B SECRETARY, CMP, CK, HS TROP, SCAN CBC ####[facility] [id number] Platelet morphology finding [Identifier] in BloodOrdered By: John Dominguez on 02-07-2024 Platelet morphology finding Nom (Bld) Normal Normal [facility] Platelets Large [Presence] i n Blood by Light microscopyOrdered By: John Dominguez on 02-07-2024 Platelets Large LM Ql (Bld) Slight [facility] Platelets [#/volume] in Bloo d by Automated countOrdered By: John Dominguez on 02-07-2024 Platelets (Bld) [#/Vol] 187 10*3/uL Normal 150-450 [facility] Comment on above: Performed By: #### B SECRETARY, CMP, CK, HS TROP, SCAN CBC ####[facility] [id number] Polychromasia [Presence] in Blood by Light microscopyOrdered By: John Dominguez on 02-07-2024 Polychromasia LM Ql (Bld) Slight [facility] Potassium [Moles/volume] in Serum or PlasmaOrdered By: John Dominguez on 02-07-2024 Potassium [Moles/Vol] 3.8 mmol/L Normal 3.5-5.1 [facility] Comment on above: Performed By: #### B SECRETARY, CMP, CK, HS TROP, SCAN CBC ####[address] Protein [Mass/volume] in Ser um or PlasmaOrdered By: John Dominguez on 02-07-2024 Protein [Mass/Vol] 6.9 g/dL Normal 6.4-8.9 [facility] Comment on above: Performed By: #### B SECRETARY, CMP, CK, HS TROP, SCAN CBC ####[place] [id number] [facility] RBC morphologyOrdered By: Karmen Dominguez on 02-07-2024 RBC morphology finding Nom (Bld) Normal Normal Normal [facility] Comment on above: Performed By: #### B SECRETARY, CMP, CK, HS TROP, SCAN CBC ####[address] Scan and CBCon 02-07-2024 Large Platelets Slight Normal [facility] Comment on above: Result Comment: PERF ORMED BY: [facility] [address] [place] [address] PATHOLOGIST WASHER CUTTER ALEX CROWLEY M.D. Performed By: #### B SECRETARY, CMP, CK, HS TROP, SCAN CBC ####[place] [id number] [facility] Mean Corpuscular HGB Conc 33.8 g/dL Normal 32.5-35.6 [facility] Comment on above: Performed By: #### B SECRETARY, CMP, CK, HS TROP, SCAN CBC ####[place] [id number] [facility] Monocytes/100 WBC (Bld) 19.12 % Normal 0.00-20.00 [facility] Comment on above: Performed By: #### B SECRETARY, CMP, CK, HS TROP, SCAN CBC ####[place] [id number] [facility] NRBC% 0.1 /100{WBC} Normal 0-0.5 [facility] Comment on above: Performed By: #### B SECRETARY, CMP, CK, HS TROP, SCAN CBC ####[address] Platelet Estimate Normal Normal Normal [facility] Comment on above: Performed By: #### B SECRETARY, CMP, CK, HS TROP, SCAN CBC ####[address] Platelet Morphology Normal Normal Normal [facility] Comment on above: Performed By: #### B SECRETARY, CMP, CK, HS TROP, SCAN CBC ####[address] Polychromasia Slight Normal [facility] Comment on above: Performed By: #### B SECRETARY, CMP, CK, HS TROP, SCAN CBC ####[address] Serum globulin measurement b y calculation (mass/volume)Ordered By: John Dominguez on 02-07-2024 Globulin (S) [Mass/Vol] 3.3 g/dL Normal [facility] Comment on above: Performed By: #### B SECRETARY, CMP, CK, HS TROP, SCAN CBC ####[address] Serum or plasma albumin/glob ulin mass ratioOrdered By: John Dominguez on 02-07-2024 Albumin/Globulin [Mass ratio] 1.1 {ratio} Normal [facility] Comment on above: Performed By: #### B SECRETARY, CMP, CK, HS TROP, SCAN CBC ####[address] Serum or plasma anion gap de terminationOrdered By: John Dominguez on 02-07-2024 Anion gap [Moles/Vol] 13.1 mmol/L Normal 6.0-15.0 [facility] Comment on above: Performed By: #### B SECRETARY, CMP, CK, HS TROP, SCAN CBC ####[address] Sodium [Moles/volume] in Ser um or PlasmaOrdered By: John Dominguez on 02-07-2024 Sodium [Moles/Vol] 133 mmol/L Low 136-145 [facility] Comment on above: Performed By: #### B SECRETARY, CMP, CK, HS TROP, SCAN CBC ####[facility] [place] [id number] [facility] Troponin I High Sensitivityo n 02-07-2024 Troponin I High Sensitivity 10.1 pg/mL Normal 0.0-20.0 [facility] Comment on above: Result Comment: PERF ORMED BY: [facility] [address] [place] [id number] PATHOLOGIST WASHER CUTTER ALEX CROWLEY M.D. Performed By: #### B SECRETARY, CMP, CK, HS TROP, SCAN CBC ####[place] [id number] [address] Troponin I.cardiac [Mass/vol ume] in Serum or Plasma by Detection limit <= 0.01 ng/Ordered By: Jhon Dominguez on 02-07-2024 Troponin I.cardiac DL <= 0.01 ng/mL [Mass/Vol] 10.1 pg/mL 0.0-20.0 [facility] Urea nitrogen [Mass/volume] in Serum or PlasmaOrdered By: John Dominguez on 02-07-2024 Urea nitrogen [Mass/Vol] 17 mg/dL Normal 7-25 [facility] Comment on above: Performed By: #### B SECRETARY, CMP, CK, HS TROP, SCAN CBC ####[place] [id number] [place] [id number] [facility] Family Medicine Office/Clini c Noteon 02-06-2024 [...] day(s), # 14 tab(s), Refills(s) 0, Pharmacy: [facility], 169.5, cm, 02/06/24 12:01:00 EDT, Height/Length Dosing, 52.9, kg, 02/06/24 12:01:00 EDT, Weight Dosing methylPREDNISolone, = 1 packet(s), Oral, As Directed, as directed on package labeling, X 6 day(s), # 21 tab(s), Refills(s) 0, Pharmacy: [facility], 169.5, cm, 02/06/24 12:01:00 EDT, Height/Length Dosing, 52.9, kg, 02/06/24 12:01:00 EDT, Weight Dosing 2. Former smoker (Z87.891: Personal history of nicotine dependence) continue not smoking Ordered: amoxicillin, 875 mg = 1 tab(s), Oral, BID, X 7 day(s), # 14 tab(s), Refills(s) 0, Pharmacy: [facility], 169.5, cm, 02/06/24 12:01:00 EDT, Height/Length Dosing, 52.9, kg, 02/06/24 12:01:00 EDT, Weight Dosing methylPREDNISolone, = 1 packet(s), Oral, As Directed, as directed on package labeling, X 6 day(s), # 21 tab(s), Refills(s) 0, Pharmacy: [facility], 169.5, cm, 02/06/24 12:01:00 EDT, Height/Length Dosing, 52.9, kg, 02/06/24 12:01:00 EDT, Weight Dosing 3. BMI less than 19,adult (Z68.1: Body mass index [BMI] 19.9 or less, adult) BMI education given Ordered: amoxicillin, 875 mg = 1 tab(s), Oral, BID, X 7 day(s), # 14 tab(s), Refills(s) 0, Pharmacy: [facility], 169.5, cm, 02/06/24 12:01:00 EDT, Height/Length Dosing, 52.9, kg, 02/06/24 12:01:00 EDT, Weight Dosing methylPREDNISolone, = 1 packet(s), Oral, As Directed, as directed on package labeling, X 6 day(s), # 21 tab(s), Refills(s) 0, Pharmacy: [facility], 169.5, cm, 02/06/24 12:01:00 EDT, Height/Length Dosing, 52.9, kg, 02/06/24 12:01:00 EDT, Weight Dosing Orders: triamcinolone topical, 1 duong, Topical, BID, 20 gram, Refill(s) 1, [facility], 169.5, cm, 10/15/23 11:53:00 EDT, Height/Length [...] (COVID-19) mRN (more content not included)... Normal [facility] Comment on above: Result Comment: Elec tronically Signed By: Enrique Austin\.br\Date and Time Signed: 02/06/24 12:32 EDT CBC W Auto Differential pane l (Bld)on 02-03-2024 Basophils (Bld) [#/Vol] 10*3/uL Normal <0.11 [facility] Comment on above: Order Comment: Speci men Type: BLOOD SPECIMENOrdering Facility: [facility] Address: [address] [place] [address] Performed By: #### 5 7021-8 ####[facility] LABCLIA [id number] [place] [address] Basophils/100 WBC (Bld) 0.3 % Normal [facility] Comment on above: Order Comment: Speci men Type: BLOOD SPECIMENOrdering Facility: [facility] Address: [address] [place] [address] Performed By: #### 5 7021-8 ####[facility] LABCLIA [id number] [place] [address] Differential cell count method Nom (Bld) Auto Normal [facility] Comment on above: Order Comment: Speci men Type: BLOOD SPECIMENOrdering Facility: [facility] Address: [address] [place] [address] Performed By: #### 5 7021-8 ####[facility] LABCLIA [id number] [place] [address] Eosinophils (Bld) [#/Vol] 0.10 10*3/uL Normal <0.46 [facility] Comment on above: Order Comment: Speci men Type: BLOOD SPECIMENOrdering Facility: [facility] Address: [address] [place] [address] Performed By: #### 5 7021-8 ####[facility] LABCLIA [id number] [place] [address] Eosinophils/100 WBC (Bld) 1.7 % Normal [facility] Comment on above: Order Comment: Speci men Type: BLOOD SPECIMENOrdering Facility: [facility] Address: [address] [place] [address] Performed By: #### 5 7021-8 ####[facility] LABCLIA [id number] [place] [address] Erythrocyte distribution width (RBC) [Ratio] 13.7 % Normal 11.5-15.0 [facility] Comment on above: Order Comment: Speci men Type: BLOOD SPECIMENOrdering Facility: [facility] Address: [address] [place] [address] Performed By: #### 5 7021-8 ####[facility] LABCLIA [id number] [place] [address] Hematocrit (Bld) [Volume fraction] 38.1 % Low 39.0-51.0 [facility] Comment on above: Order Comment: Speci men Type: BLOOD SPECIMENOrdering Facility: [facility] Address: [address] [place] [address] Performed By: #### 5 7021-8 ####[facility] LABCLIA [id number] [place] [address] Hemoglobin (Bld) [Mass/Vol] 12.7 g/dL Low 13.0-17.0 [facility] Comment on above: Order Comment: Speci men Type: BLOOD SPECIMENOrdering Facility: [facility] Address: [address] [place] [address] Performed By: #### 5 7021-8 ####[facility] LABCLIA [id number] [place] [address] Immature granulocytes (Bld) [#/Vol] 0.04 10*3/uL Normal <0.10 [facility] Comment on above: Order Comment: Speci men Type: BLOOD SPECIMENOrdering Facility: [facility] Address: [address] [place] [address] Performed By: #### 5 7021-8 ####[facility] LABCLIA [id number] [place] [address] Immature granulocytes/100 WBC (Bld) 0.7 % Normal [facility] Comment on above: Order Comment: Speci men Type: BLOOD SPECIMENOrdering Facility: [facility] Address: [address] [place] [address] Performed By: #### 5 7021-8 ####[facility] LABCLIA [id number] [place] [address] Lymphocytes (Bld) [#/Vol] 1.05 10*3/uL Normal 1.00-4.00 [facility] Comment on above: Order Comment: Speci men Type: BLOOD SPECIMENOrdering Facility: [facility] Address: [address] [place] [address] Performed By: #### 5 7021-8 ####[facility] LABCLIA [id number] [place] [address] Lymphocytes/100 WBC (Bld) 17.6 % Normal [facility] Comment on above: Order Comment: Speci men Type: BLOOD SPECIMENOrdering Facility: [facility] Address: [address] [place] [address] Performed By: #### 5 7021-8 ####[facility] LABCLIA [id number] [place] [address] MCH (RBC) [Entitic mass] 31.7 pg Normal 26.0-34.0 [facility] Comment on above: Order Comment: Speci men Type: BLOOD SPECIMENOrdering Facility: [facility] Address: [address] [place] [address] Performed By: #### 5 7021-8 ####[facility] LABCLIA [id number] [place] [address] MCHC (RBC) [Mass/Vol] 33.3 g/dL Normal 30.5-36.0 [facility] Comment on above: Order Comment: Speci men Type: BLOOD SPECIMENOrdering Facility: [facility] Address: [address] [place] [address] Performed By: #### 5 7021-8 ####[facility] LABCLIA [id number] [place] [address] MCV (RBC) [Entitic vol] 95.0 fL Normal 80.0-100.0 [facility] Comment on above: Order Comment: Speci men Type: BLOOD SPECIMENOrdering Facility: [facility] Address: [address] [place] [address] Performed By: #### 5 7021-8 ####[facility] LABCLIA [id number] [place] [address] Monocytes (Bld) [#/Vol] 1.00 10*3/uL High <0.87 [facility] Comment on above: Order Comment: Speci men Type: BLOOD SPECIMENOrdering Facility: [facility] Address: [address] [place] [address] Performed By: #### 5 7021-8 ####[facility] LABCLIA [id number] [place] [address] Monocytes/100 WBC (Bld) 16.8 % Normal [facility] Comment on above: Order Comment: Speci men Type: BLOOD SPECIMENOrdering Facility: [facility] Address: [address] [place] [address] Performed By: #### 5 7021-8 ####[facility] LABCLIA [id number] [place] [address] Neutrophils (Bld) [#/Vol] 3.75 10*3/uL Normal 1.45-7.50 [facility] Comment on above: Order Comment: Speci men Type: BLOOD SPECIMENOrdering Facility: [facility] Address: [address] [place] [address] Performed By: #### 5 7021-8 ####[facility] LABCLIA [id number] [place] [address] Neutrophils/100 WBC (Bld) 62.9 % Normal [facility] Comment on above: Order Comment: Speci men Type: BLOOD SPECIMENOrdering Facility: [facility] Address: [address] [place] [address] Performed By: #### 5 7021-8 ####[facility] LABIA [id number] [place] [address] Nucleated RBC (Bld) [#/Vol] 10*3/uL Normal <0.01 [facility] Comment on above: Order Comment: Speci men Type: BLOOD SPECIMENOrdering Facility: [facility] Address: [address] [place] [address] Performed By: #### 5 7021-8 ####[facility] LABCLIA [id number] [place] [address] Nucleated RBC/100 WBC (Bld) [Ratio] 0.0 /100 WBC Normal [facility] Comment on above: Order Comment: Speci men Type: BLOOD SPECIMENOrdering Facility: [facility] Address: [address] [place] [address] Performed By: #### 5 7021-8 ####[facility] LABCLIA [id number] [place] [address] Platelet mean volume (Bld) [Entitic vol] 11.5 fL Normal 9.0-12.7 [facility] Comment on above: Order Comment: Speci men Type: BLOOD SPECIMENOrdering Facility: [facility] Address: [address] [place] [address] Performed By: #### 5 7021-8 ####[facility] LABCLIA [id number] [place] [address] Platelets (Bld) [#/Vol] 201 10*3/uL Normal 150-400 [facility] Comment on above: Order Comment: Speci men Type: BLOOD SPECIMENOrdering Facility: [facility] Address: [address] [place] [address] Performed By: #### 5 7021-8 ####[facility] LABCLIA [id number] [place] [address] RBC (Bld) [#/Vol] 4.01 10*6/uL Low 4.20-6.00 [facility] Comment on above: Order Comment: Speci men Type: BLOOD SPECIMENOrdering Facility: [facility] Address: [address] [place] [address] Performed By: #### 5 7021-8 ####[facility] LABCLIA [id number] [place] [address] WBC (Bld) [#/Vol] 5.96 10*3/uL Normal 3.70-11.00 [facility] Comment on above: Order Comment: Speci men Type: BLOOD SPECIMENOrdering Facility: [facility] Address: [address] [place] [address] Performed By: #### 5 7021-8 ####[facility] LABCLIA [id number] [place] [address] CNOVSPon 02-03-2024 CNOVSP Normal [facility] CNPNon 02-03-2024 CNPN Normal [facility] Comprehensive metabolic 2000 panelon 02-03-2024 Albumin [Mass/Vol] 3.8 g/dL Low 3.9-4.9 [facility] Comment on above: Order Comment: Speci men Type: BLOOD SPECIMENOrdering Facility: [facility] Address: [address] [place] [address] Performed By: #### 2 4323-8 ####[facility] LABCLIA [id number] [place] [address] ALP [Catalytic activity/Vol] 47 U/L Normal 38-113 [facility] Comment on above: Order Comment: Speci men Type: BLOOD SPECIMENOrdering Facility: [facility] Address: [address] [place] [address] Performed By: #### 2 4323-8 ####[facility] LABCLIA [id number] [place] [address] ALT [Catalytic activity/Vol] 12 U/L Normal 10-54 [facility] Comment on above: Order Comment: Speci men Type: BLOOD SPECIMENOrdering Facility: [facility] Address: [address] [place] [address] Performed By: #### 2 4323-8 ####[facility] LABCLIA [id number] [place] [address] Anion gap [Moles/Vol] 13 mmol/L Normal 8-15 [facility] Comment on above: Order Comment: Speci men Type: BLOOD SPECIMENOrdering Facility: [facility] Address: [address] [place] [address] Performed By: #### 2 4323-8 ####[facility] LABCLIA [id number] [place] [address] AST [Catalytic activity/Vol] 22 U/L Normal 14-40 [facility] Comment on above: Order Comment: Speci men Type: BLOOD SPECIMENOrdering Facility: [facility] Address: [address] [place] [address] Performed By: #### 2 4323-8 ####[facility] LABCLIA [id number] [place] [address] Bilirubin [Mass/Vol] 0.8 mg/dL Normal 0.2-1.3 [facility] Comment on above: Order Comment: Speci men Type: BLOOD SPECIMENOrdering Facility: [facility] Address: [address] [place] [address] Performed By: #### 2 4323-8 ####[facility] LABCLIA [id number] [place] [address] Calcium [Mass/Vol] 10.5 mg/dL High 8.5-10.2 [facility] Comment on above: Order Comment: Speci men Type: BLOOD SPECIMENOrdering Facility: [facility] Address: [address] [place] [address] Performed By: #### 2 4323-8 ####[facility] LABCLIA [id number] [place] [address] Chloride [Moles/Vol] 101 mmol/L Normal 98-107 [facility] Comment on above: Order Comment: Speci men Type: BLOOD SPECIMENOrdering Facility: [facility] Address: [address] [place] [address] Performed By: #### 2 4323-8 ####[facility] LABCLIA [id number] [place] [address] CO2 [Moles/Vol] 24 mmol/L Normal 22-30 [facility] Comment on above: Order Comment: Speci men Type: BLOOD SPECIMENOrdering Facility: [facility] Address: [address] [place] [address] Performed By: #### 2 4323-8 ####[facility] LABCLIA [id number] [place] [address] Creatinine [Mass/Vol] 1.35 mg/dL High 0.73-1.22 [facility] Comment on above: Order Comment: Speci men Type: BLOOD SPECIMENOrdering Facility: [facility] Address: [address] [place] [address] Performed By: #### 2 4323-8 ####[facility] LABCLIA [id number] [place] [address] Creatinine and Glomerular filtration rate.predicted panel (S/P/Bld) 58 mL/min/1.73m??? Low >=60 [facility] Comment on above: Order Comment: Speci men Type: BLOOD SPECIMENOrdering Facility: [facility] Address: [address] [place] [address] Result Comment: Landy mated Glomerular Filtration Rate [...] actual GFR. Performed By: #### 2 4323-8 ####[facility] LABCLIA [id number] [place] [address] Glucose [Mass/Vol] 98 mg/dL Normal 74-99 [facility] Comment on above: Order Comment: Speci men Type: BLOOD SPECIMENOrdering Facility: [facility] Address: [address] [place] [address] Result Comment: The [place] [employer] (ADA) provides guidance for cutoff [...] Standards of Medical Care in Diabetes 2016, [place] [employer]. Diabetes Care. 2016.39(Suppl 1). Performed By: #### 2 4323-8 ####[facility] LABCLIA [id number] [place] [address] Potassium [Moles/Vol] 4.7 mmol/L Normal 3.7-5.1 [facility] Comment on above: Order Comment: Speci men Type: BLOOD SPECIMENOrdering Facility: [facility] Address: [address] [place] [address] Performed By: #### 2 4323-8 ####[facility] LABCLIA [id number] [place] [address] Protein [Mass/Vol] 7.2 g/dL Normal 6.3-8.0 [facility] Comment on above: Order Comment: Speci men Type: BLOOD SPECIMENOrdering Facility: [facility] Address: [address] [place] [address] Performed By: #### 2 4323-8 ####[facility] LABCLIA [id number] [place] [address] Sodium [Moles/Vol] 138 mmol/L Normal 136-144 [facility] Comment on above: Order Comment: Speci men Type: BLOOD SPECIMENOrdering Facility: [facility] Address: [address] [place] [address] Performed By: #### 2 4323-8 ####[facility] LABCLIA [id number] [place] [address] Urea nitrogen [Mass/Vol] 15 mg/dL Normal 9-24 [facility] Comment on above: Order Comment: Speci men Type: BLOOD SPECIMENOrdering Facility: [facility] Address: [address] [place] [address] Performed By: #### 2 4323-8 ####[facility] LABCLIA [id number] [place] [address] CNPNon 01-27-2024 CNPN Normal [facility] CNPNon 01-13-2024 CNPN Normal [facility] Family Medicine Office/Clini c Noteon 01-12-2024 Family [...] anxiety, # 90 tab(s), Refills(s) 0, Pharmacy: [facility], 169.5, cm, 01/12/24 12:03:00 EDT, Height/Length Dosing, 54.7, kg, 01/12/24 12:03:00 EDT, Weight Dosing alprazolam, 0.25 mg = 1 tab(s), Oral, TID, PRN for anxiety, # 90 tab(s), Refills(s) 0, Pharmacy: [facility], 169.5, cm, 10/08/23 9:02:00 EDT, Height/Length [...] (COVID-19) mRNA-1273 vaccine 11/15/2020 Recorded Normal [facility] Comment on above: Result Comment: Elec tronically Signed By: Cate MENARD, Enrique Beatty\.br\Date and Time Signed: 01/12/24 12:31 EDT CNPNon 01-09-2024 CNPN Normal [facility] CBC W Auto Differential pane l (Bld)on 12-23-2023 Basophils (Bld) [#/Vol] [facility] Basophils/100 WBC (Bld) 0.1 % [facility] Differential cell count method Nom (Bld) Auto [facility] Eosinophils (Bld) [#/Vol] [facility] Eosinophils/100 WBC (Bld) 0.1 % [facility] Erythrocyte distribution width (RBC) [Ratio] 15.3 % High 11.5 - 15.0 % [facility] Hematocrit (Bld) [Volume fraction] 31.1 % Low 39.0 - 51.0 % [facility] Hemoglobin (Bld) [Mass/Vol] 10.0 g/dL Low 13.0 - 17.0 g/dL [facility] Immature granulocytes (Bld) [#/Vol] 0.07 10*3/uL [facility] Immature granulocytes/100 WBC (Bld) 0.9 % [facility] Interpretation and review of laboratory results Abnormal [facility] Lymphocytes (Bld) [#/Vol] 0.38 10*3/uL Low [facility] Lymphocytes/100 WBC (Bld) 4.6 % [facility] MCH (RBC) [Entitic mass] 31.0 pg 26.0 - 34.0 pg [facility] MCHC (RBC) [Mass/Vol] 32.2 g/dL 30.5 - 36.0 g/dL [facility] MCV (RBC) [Entitic vol] 96.3 fL 80.0 - 100.0 fL [facility] Monocytes (Bld) [#/Vol] 0.34 10*3/uL [facility] Monocytes/100 WBC (Bld) 4.1 % [facility] Neutrophils (Bld) [#/Vol] 7.39 10*3/uL [facility] Neutrophils/100 WBC (Bld) 90.2 % [facility] Nucleated RBC (Bld) [#/Vol] NINF [facility] Nucleated RBC/100 WBC (Bld) [Ratio] 0.0 % /100 WBC [facility] Platelet mean volume (Bld) [Entitic vol] 10.9 fL 9.0 - 12.7 fL [facility] Platelets (Bld) [#/Vol] 141 10*3/uL Low [facility] RBC (Bld) [#/Vol] 3.23 10*6/uL Low 4.20 - 6.00 m/uL [facility] WBC (Bld) [#/Vol] 8.20 10*3/uL [facility] Basophils (Bld) [#/Vol] 10*3/uL Normal <0.11 [facility] Comment on above: Order Comment: Speci men Type: BLOOD SPECIMENOrdering Facility: [facility] Address: [address] [place] [address] Performed By: #### 5 7021-8 ####[facility] LABCLIA [id number] [place] [address] Basophils/100 WBC (Bld) 0.1 % Normal [facility] Comment on above: Order Comment: Speci men Type: BLOOD SPECIMENOrdering Facility: [facility] Address: [address] [place] [address] Performed By: #### 5 7021-8 ####[facility] LABCLIA [id number] [place] [address] Differential cell count method Nom (Bld) Auto Normal [facility] Comment on above: Order Comment: Speci men Type: BLOOD SPECIMENOrdering Facility: [facility] Address: [address] [place] [address] Performed By: #### 5 7021-8 ####[facility] LABCLIA [id number] [place] [address] Eosinophils (Bld) [#/Vol] 10*3/uL Normal <0.46 [facility] Comment on above: Order Comment: Speci men Type: BLOOD SPECIMENOrdering Facility: [facility] Address: [address] [place] [address] Performed By: #### 5 7021-8 ####[facility] LABCLIA [id number] [place] [address] Eosinophils/100 WBC (Bld) 0.1 % Normal [facility] Comment on above: Order Comment: Speci men Type: BLOOD SPECIMENOrdering Facility: [facility] Address: [address] [place] [address] Performed By: #### 5 7021-8 ####[facility] LABCLIA [id number] [place] [address] Erythrocyte distribution width (RBC) [Ratio] 15.3 % High 11.5-15.0 [facility] Comment on above: Order Comment: Speci men Type: BLOOD SPECIMENOrdering Facility: [facility] Address: [address] [place] [address] Performed By: #### 5 7021-8 ####[facility] LABCLIA [id number] [place] [address] Hematocrit (Bld) [Volume fraction] 31.1 % Low 39.0-51.0 [facility] Comment on above: Order Comment: Speci men Type: BLOOD SPECIMENOrdering Facility: [facility] Address: [address] [place] [address] Performed By: #### 5 7021-8 ####[facility] LABCLIA [id number] [place] [address] Hemoglobin (Bld) [Mass/Vol] 10.0 g/dL Low 13.0-17.0 [facility] Comment on above: Order Comment: Speci men Type: BLOOD SPECIMENOrdering Facility: [facility] Address: [address] [place] [address] Performed By: #### 5 7021-8 ####[facility] LABCLIA [id number] [place] [address] Immature granulocytes (Bld) [#/Vol] 0.07 10*3/uL Normal <0.10 [facility] Comment on above: Order Comment: Speci men Type: BLOOD SPECIMENOrdering Facility: [facility] Address: [address] [place] [address] Performed By: #### 5 7021-8 ####[facility] LABCLIA [id number] [place] [address] Immature granulocytes/100 WBC (Bld) 0.9 % Normal [facility] Comment on above: Order Comment: Speci men Type: BLOOD SPECIMENOrdering Facility: [facility] Address: [address] [place] [address] Performed By: #### 5 7021-8 ####[facility] LABCLIA [id number] [place] [address] Lymphocytes (Bld) [#/Vol] 0.38 10*3/uL Low 1.00-4.00 [facility] Comment on above: Order Comment: Speci men Type: BLOOD SPECIMENOrdering Facility: [facility] Address: [address] [place] [address] Performed By: #### 5 7021-8 ####[facility] LABCLIA [id number] [place] [address] Lymphocytes/100 WBC (Bld) 4.6 % Normal [facility] Comment on above: Order Comment: Speci men Type: BLOOD SPECIMENOrdering Facility: [facility] Address: [address] [place] [address] Performed By: #### 5 7021-8 ####[facility] LABCLIA [id number] [place] [address] MCH (RBC) [Entitic mass] 31.0 pg Normal 26.0-34.0 [facility] Comment on above: Order Comment: Speci men Type: BLOOD SPECIMENOrdering Facility: [facility] Address: [address] [place] [address] Performed By: #### 5 7021-8 ####[facility] LABCLIA [id number] [place] [address] MCHC (RBC) [Mass/Vol] 32.2 g/dL Normal 30.5-36.0 [facility] Comment on above: Order Comment: Speci men Type: BLOOD SPECIMENOrdering Facility: [facility] Address: [address] [place] [address] Performed By: #### 5 7021-8 ####[facility] LABCLIA [id number] [place] [address] MCV (RBC) [Entitic vol] 96.3 fL Normal 80.0-100.0 [facility] Comment on above: Order Comment: Speci men Type: BLOOD SPECIMENOrdering Facility: [facility] Address: [address] [place] [address] Performed By: #### 5 7021-8 ####[facility] LABCLIA [id number] [place] [address] Monocytes (Bld) [#/Vol] 0.34 10*3/uL Normal <0.87 [facility] Comment on above: Order Comment: Speci men Type: BLOOD SPECIMENOrdering Facility: [facility] Address: [address] [place] [address] Performed By: #### 5 7021-8 ####[facility] LABCLIA [id number] [place] [address] Monocytes/100 WBC (Bld) 4.1 % Normal [facility] Comment on above: Order Comment: Speci men Type: BLOOD SPECIMENOrdering Facility: [facility] Address: [address] [place] [address] Performed By: #### 5 7021-8 ####[facility] LABCLIA [id number] [place] [address] Neutrophils (Bld) [#/Vol] 7.39 10*3/uL Normal 1.45-7.50 [facility] Comment on above: Order Comment: Speci men Type: BLOOD SPECIMENOrdering Facility: [facility] Address: [address] [place] [address] Performed By: #### 5 7021-8 ####[facility] LABCLIA [id number] [place] [address] Neutrophils/100 WBC (Bld) 90.2 % Normal [facility] Comment on above: Order Comment: Speci men Type: BLOOD SPECIMENOrdering Facility: [facility] Address: [address] [place] [address] Performed By: #### 5 7021-8 ####[facility] LABCLIA [id number] [place] [address] Nucleated RBC (Bld) [#/Vol] 10*3/uL Normal <0.01 [facility] Comment on above: Order Comment: Speci men Type: BLOOD SPECIMENOrdering Facility: [facility] Address: [address] [place] [address] Performed By: #### 5 7021-8 ####[facility] LABCLIA [id number] [place] [address] Nucleated RBC/100 WBC (Bld) [Ratio] 0.0 /100 WBC Normal [facility] [facility] Comment on above: Order Comment: Speci men Type: BLOOD SPECIMENOrdering Facility: [facility] Address: [address] [place] [address] Performed By: #### 5 7021-8 ####[facility] LABCLIA [id number] [place] [address] Platelet mean volume (Bld) [Entitic vol] 10.9 fL Normal 9.0-12.7 [facility] Comment on above: Order Comment: Speci men Type: BLOOD SPECIMENOrdering Facility: [facility] Address: [address] [place] [address] Performed By: #### 5 7021-8 ####[facility] LABCLIA [id number] [place] [address] Platelets (Bld) [#/Vol] 141 10*3/uL Low 150-400 [facility] Comment on above: Order Comment: Speci men Type: BLOOD SPECIMENOrdering Facility: [facility] Address: [address] [place] [address] Performed By: #### 5 7021-8 ####[facility] LABIA [id number] [place] [address] RBC (Bld) [#/Vol] 3.23 10*6/uL Low 4.20-6.00 [facility] Comment on above: Order Comment: Speci men Type: BLOOD SPECIMENOrdering Facility: [facility] Address: [address] [place] [address] Performed By: #### 5 7021-8 ####[facility] LABIA [id number] [place] [address] WBC (Bld) [#/Vol] 8.20 10*3/uL Normal 3.70-11.00 [facility] Comment on above: Order Comment: Speci men Type: BLOOD SPECIMENOrdering Facility: [facility] Address: [address] [place] [address] Performed By: #### 5 7021-8 ####[facility] LABIA [id number] [place] [address] CNOVSPon 12-23-2023 CNOVSP Normal [facility] metabolic 2000 panelOrdered By: [place] Viramontes on 12-23-2023 Albumin [Mass/Vol] 3.8 g/dL Low 3.9 - 4.9 g/dL Cl [facility] ALP [Catalytic activity/Vol] 38 U/L 38 - 113 U/L [facility] ALT [Catalytic activity/Vol] 14 U/L 10 - 54 U/L [facility] Anion gap [Moles/Vol] 8 mmol/L 8 - 15 mmol/L [facility] AST [Catalytic activity/Vol] 15 U/L 14 - 40 U/L [facility] Bilirubin [Mass/Vol] 0.6 mg/dL 0.2 - 1.3 mg/dL [facility] Calcium [Mass/Vol] 9.7 mg/dL 8.5 - 10.2 mg/dL [facility] Chloride [Moles/Vol] 101 mmol/L 98 - 107 mmol/L [facility] CO2 [Moles/Vol] 26 mmol/L 22 - 30 mmol/L [facility] Creatinine [Mass/Vol] 1.19 mg/dL 0.73 - 1.22 mg/dL [facility] GFR/1.73 sq M.predicted among non-blacks MDRD (S/P/Bld) [Vol rate/Area] 67 mL/min/{1.73_m2} - PINF [facility] Comment on above: Estimated Glomerular Filtration Rate [...] 121 mg/dL High 74 - 99 mg/dL [facility] Comment on above: The [place] Di[employer] Association (ADA) provides guidance for [...] Standards of Medical Care in Diabetes 2016, [place] [employer]. Diabetes Care. 2016.39(Suppl 1). Interpretation and review of laboratory results Abnormal [facility] Potassium [Moles/Vol] 3.9 mmol/L 3.7 - 5.1 mmol/L [facility] Protein [Mass/Vol] 6.8 g/dL 6.3 - 8.0 g/dL [facility] Sodium [Moles/Vol] 135 mmol/L Low 136 - 144 mmol/L [facility] Urea nitrogen [Mass/Vol] 41 mg/dL High 9 - 24 mg/dL [facility] Comprehensive metabolic 2000 panelon 12-23-2023 Albumin [Mass/Vol] 3.8 g/dL Low 3.9-4.9 [facility] Comment on above: Order Comment: Speci men Type: BLOOD SPECIMENOrdering Facility: [facility] Address: [address] [place] [address] Performed By: #### 2 4323-8 ####[facility] LABCLIA [id number] [place] [address] ALP [Catalytic activity/Vol] 38 U/L Normal 38-113 [facility] Comment on above: Order Comment: Speci men Type: BLOOD SPECIMENOrdering Facility: [facility] Address: [address] [place] [address] Performed By: #### 2 4323-8 ####[facility] LABCLIA [id number] [place] [address] ALT [Catalytic activity/Vol] 14 U/L Normal 10-54 [facility] Comment on above: Order Comment: Speci men Type: BLOOD SPECIMENOrdering Facility: [facility] Address: [address] [place] [address] Performed By: #### 2 4323-8 ####[facility] LABCLIA [id number] [place] [address] Anion gap [Moles/Vol] 8 mmol/L Normal 8-15 [facility] Comment on above: Order Comment: Speci men Type: BLOOD SPECIMENOrdering Facility: [facility] Address: [address] [place] [address] Performed By: #### 2 4323-8 ####[facility] LABCLIA [id number] [place] [address] AST [Catalytic activity/Vol] 15 U/L Normal 14-40 [facility] Comment on above: Order Comment: Speci men Type: BLOOD SPECIMENOrdering Facility: [facility] Address: [address] [place] [address] Performed By: #### 2 4323-8 ####[facility] LABCLIA [id number] [place] [address] Bilirubin [Mass/Vol] 0.6 mg/dL Normal 0.2-1.3 [facility] Comment on above: Order Comment: Speci men Type: BLOOD SPECIMENOrdering Facility: [facility] Address: [address] [place] [address] Performed By: #### 2 4323-8 ####[facility] LABCLIA [id number] [place] [address] Calcium [Mass/Vol] 9.7 mg/dL Normal 8.5-10.2 [facility] Comment on above: Order Comment: Speci men Type: BLOOD SPECIMENOrdering Facility: [facility] Address: [address] [place] [address] Performed By: #### 2 4323-8 ####[facility] LABCLIA [id number] [place] [address] Chloride [Moles/Vol] 101 mmol/L Normal 98-107 [facility] Comment on above: Order Comment: Speci men Type: BLOOD SPECIMENOrdering Facility: [facility] Address: [address] [place] [address] Performed By: #### 2 4323-8 ####[facility] LABCLIA [id number] [place] [address] CO2 [Moles/Vol] 26 mmol/L Normal 22-30 [facility] Comment on above: Order Comment: Speci men Type: BLOOD SPECIMENOrdering Facility: [facility] Address: [address] [place] [address] Performed By: #### 2 4323-8 ####[facility] LABCLIA [id number] [place] [address] Creatinine [Mass/Vol] 1.19 mg/dL Normal 0.73-1.22 [facility] Comment on above: Order Comment: Speci men Type: BLOOD SPECIMENOrdering Facility: [facility] Address: [address] [place] [address] Performed By: #### 2 4323-8 ####[facility] LABCLIA [id number] [place] [address] Creatinine and Glomerular filtration rate.predicted panel (S/P/Bld) 67 mL/min/1.73m??? Normal >=60 [facility] Comment on above: Order Comment: Speci men Type: BLOOD SPECIMENOrdering Facility: [facility] Address: [address] [place] [address] Result Comment: Landy mated Glomerular Filtration Rate [...] actual GFR. Performed By: #### 2 4323-8 ####[facility] LABCLIA [id number] [place] [address] Glucose [Mass/Vol] 121 mg/dL High 74-99 [facility] Comment on above: Order Comment: Speci men Type: BLOOD SPECIMENOrdering Facility: [facility] Address: [address] [place] [id number] Result Comment: The [place] Diabetes Association (ADA) provides guidance for cutoff [...] Standards of Medical Care in Diabetes 2016, [place] [employer]. Diabetes Care. 2016.39(Suppl 1). Performed By: #### 2 4323-8 ####[facility] LABCLIA [id number] [place] [address] Potassium [Moles/Vol] 3.9 mmol/L Normal 3.7-5.1 [facility] Comment on above: Order Comment: Speci men Type: BLOOD SPECIMENOrdering Facility: [facility] Address: [address] [place] [address] Performed By: #### 2 4323-8 ####[facility] LABCLIA [id number] [place] [address] Protein [Mass/Vol] 6.8 g/dL Normal 6.3-8.0 [facility] Comment on above: Order Comment: Speci men Type: BLOOD SPECIMENOrdering Facility: [facility] Address: [address] [place] [address] Performed By: #### 2 4323-8 ####[facility] LABCLIA [id number] [place] [address] Sodium [Moles/Vol] 135 mmol/L Low 136-144 [facility] Comment on above: Order Comment: Speci men Type: BLOOD SPECIMENOrdering Facility: [facility] Address: [address] [place] [address] Performed By: #### 2 4323-8 ####[facility] LABCLIA [id number] [place] [address] Urea nitrogen [Mass/Vol] 41 mg/dL High 9-24 [facility] Comment on above: Order Comment: Speci men Type: BLOOD SPECIMENOrdering Facility: [facility] Address: [address] [place] [address] Performed By: #### 2 4323-8 ####[facility] LABCLIA [id number] [place] [address] CNOVon 12-22-2023 CNOV Normal [facility] CNOVon 12-16-2023 CNOV Normal [facility] CNPNon 12-16-2023 CNPN Normal [facility] CNOVon 12-10-2023 CNOV Normal [facility] CNOVon 12-03-2023 CNOV Normal [facility] CNPNon 12-03-2023 CNPN Normal [facility] CNOVon 12-02-2023 CNOV Normal [facility] CNOVSPon 12-02-2023 CNOVSP Normal [facility] CBC W Auto Differential pane l (Bld)on 11-25-2023 Basophils (Bld) [#/Vol] 0.03 10*3/uL Normal <0.11 [facility] Comment on above: Order Comment: Speci men Type: BLOOD SPECIMENOrdering Facility: [facility] Address: [address] [place] [address] Performed By: #### 5 7021-8 ####[facility] LABCLIA [id number] [place] [address] Basophils/100 WBC (Bld) 0.4 % Normal [facility] Comment on above: Order Comment: Speci men Type: BLOOD SPECIMENOrdering Facility: [facility] Address: [address] [place] [address] Performed By: #### 5 7021-8 ####[facility] LABCLIA [id number] [place] [address] Differential cell count method Nom (Bld) Auto Normal [facility] Comment on above: Order Comment: Speci men Type: BLOOD SPECIMENOrdering Facility: [facility] Address: [address] [place] [address] Performed By: #### 5 7021-8 ####[facility] LABCLIA [id number] [place] [address] Eosinophils (Bld) [#/Vol] 0.08 10*3/uL Normal <0.46 [facility] Comment on above: Order Comment: Speci men Type: BLOOD SPECIMENOrdering Facility: [facility] Address: [address] [place] [address] Performed By: #### 5 7021-8 ####[facility] LABCLIA [id number] [place] [address] Eosinophils/100 WBC (Bld) 1.1 % Normal [facility] Comment on above: Order Comment: Speci men Type: BLOOD SPECIMENOrdering Facility: [facility] Address: [address] [place] [address] Performed By: #### 5 7021-8 ####[facility] LABCLIA [id number] [place] [address] Erythrocyte distribution width (RBC) [Ratio] 14.9 % Normal 11.5-15.0 [facility] Comment on above: Order Comment: Speci men Type: BLOOD SPECIMENOrdering Facility: [facility] Address: [address] [place] [address] Performed By: #### 5 7021-8 ####[facility] LABCLIA [id number] [place] [address] Hematocrit (Bld) [Volume fraction] 38.1 % Low 39.0-51.0 [facility] Comment on above: Order Comment: Speci men Type: BLOOD SPECIMENOrdering Facility: [facility] Address: [address] [place] [address] Performed By: #### 5 7021-8 ####[facility] LABCLIA [id number] [place] [address] Hemoglobin (Bld) [Mass/Vol] 12.8 g/dL Low 13.0-17.0 [facility] Comment on above: Order Comment: Speci men Type: BLOOD SPECIMENOrdering Facility: [facility] Address: [address] [place] [address] Performed By: #### 5 7021-8 ####[facility] LABCLIA [id number] [place] [address] Immature granulocytes (Bld) [#/Vol] 0.03 10*3/uL Normal <0.10 [facility] Comment on above: Order Comment: Speci men Type: BLOOD SPECIMENOrdering Facility: [facility] Address: [address] [place] [address] Performed By: #### 5 7021-8 ####[facility] LABCLIA [id number] [place] [address] Immature granulocytes/100 WBC (Bld) 0.4 % Normal [facility] Comment on above: Order Comment: Speci men Type: BLOOD SPECIMENOrdering Facility: [facility] Address: [address] [place] [address] Performed By: #### 5 7021-8 ####[facility] LABCLIA [id number] [place] [address] Lymphocytes (Bld) [#/Vol] 0.66 10*3/uL Low 1.00-4.00 [facility] Comment on above: Order Comment: Speci men Type: BLOOD SPECIMENOrdering Facility: [facility] Address: [address] [place] [address] Performed By: #### 5 7021-8 ####[facility] LABCLIA [id number] [place] [address] Lymphocytes/100 WBC (Bld) 9.4 % Normal [facility] Comment on above: Order Comment: Speci men Type: BLOOD SPECIMENOrdering Facility: [facility] Address: [address] [place] [address] Performed By: #### 5 7021-8 ####[facility] LABCLIA [id number] [place] [address] MCH (RBC) [Entitic mass] 31.0 pg Normal 26.0-34.0 [facility] Comment on above: Order Comment: Speci men Type: BLOOD SPECIMENOrdering Facility: [facility] Address: [address] [place] [address] Performed By: #### 5 7021-8 ####[facility] LABCLIA [id number] [place] [address] MCHC (RBC) [Mass/Vol] 33.6 g/dL Normal 30.5-36.0 [facility] Comment on above: Order Comment: Speci men Type: BLOOD SPECIMENOrdering Facility: [facility] Address: [address] [place] [address] Performed By: #### 5 7021-8 ####[facility] LABCLIA [id number] [place] [address] MCV (RBC) [Entitic vol] 92.3 fL Normal 80.0-100.0 [facility] Comment on above: Order Comment: Speci men Type: BLOOD SPECIMENOrdering Facility: [facility] Address: [address] [place] [address] Performed By: #### 5 7021-8 ####[facility] LABCLIA [id number] [place] [address] Monocytes (Bld) [#/Vol] 1.02 10*3/uL High <0.87 [facility] Comment on above: Order Comment: Speci men Type: BLOOD SPECIMENOrdering Facility: [facility] Address: [address] [place] [address] Performed By: #### 5 7021-8 ####[facility] LABCLIA [id number] [place] [address] Monocytes/100 WBC (Bld) 14.5 % Normal [facility] Comment on above: Order Comment: Speci men Type: BLOOD SPECIMENOrdering Facility: [facility] Address: [address] [place] [address] Performed By: #### 5 7021-8 ####[facility] LABCLIA [id number] [place] [address] Neutrophils (Bld) [#/Vol] 5.22 10*3/uL Normal 1.45-7.50 [facility] Comment on above: Order Comment: Speci men Type: BLOOD SPECIMENOrdering Facility: [facility] Address: [address] [place] [address] Performed By: #### 5 7021-8 ####[facility] LABCLIA [id number] [place] [address] Neutrophils/100 WBC (Bld) 74.2 % Normal [facility] Comment on above: Order Comment: Speci men Type: BLOOD SPECIMENOrdering Facility: [facility] Address: [address] [place] [address] Performed By: #### 5 7021-8 ####[facility] LABCLIA [id number] [place] [address] Nucleated RBC (Bld) [#/Vol] 10*3/uL Normal <0.01 [facility] Comment on above: Order Comment: Speci men Type: BLOOD SPECIMENOrdering Facility: [facility] Address: [address] [place] [address] Performed By: #### 5 7021-8 ####[facility] LABCLIA [id number] [place] [address] Nucleated RBC/100 WBC (Bld) [Ratio] 0.0 /100 WBC Normal [facility] Comment on above: Order Comment: Speci men Type: BLOOD SPECIMENOrdering Facility: [facility] Address: [address] [place] [address] Performed By: #### 5 7021-8 ####[facility] LABCLIA [id number] [place] [address] Platelet mean volume (Bld) [Entitic vol] 10.7 fL Normal 9.0-12.7 [facility] Comment on above: Order Comment: Speci men Type: BLOOD SPECIMENOrdering Facility: [facility] Address: [address] [place] [address] Performed By: #### 5 7021-8 ####[facility] LABCLIA [id number] [place] [address] Platelets (Bld) [#/Vol] 225 10*3/uL Normal 150-400 [facility] Comment on above: Order Comment: Speci men Type: BLOOD SPECIMENOrdering Facility: [facility] Address: [address] [place] [address] Performed By: #### 5 7021-8 ####[facility] LABIA [id number] [place] [address] RBC (Bld) [#/Vol] 4.13 10*6/uL Low 4.20-6.00 [facility] Comment on above: Order Comment: Speci men Type: BLOOD SPECIMENOrdering Facility: [facility] Address: [address] [place] [address] Performed By: #### 5 7021-8 ####[facility] LABIA [id number] [place] [address] WBC (Bld) [#/Vol] 7.04 10*3/uL Normal 3.70-11.00 [facility] Comment on above: Order Comment: Speci men Type: BLOOD SPECIMENOrdering Facility: [facility] Address: [address] [place] [address] Performed By: #### 5 7021-8 ####[facility] LABIA [id number] [place] [address] Comprehensive metabolic 2000 panelon 11-25-2023 Albumin [Mass/Vol] 3.8 g/dL Low 3.9-4.9 [facility] Comment on above: Order Comment: Speci men Type: BLOOD SPECIMENOrdering Facility: [facility] Address: [address] [place] [address] Performed By: #### 2 4323-8 ####[facility] LABCLIA [id number] [place] [address] ALP [Catalytic activity/Vol] 51 U/L Normal 38-113 [facility] Comment on above: Order Comment: Speci men Type: BLOOD SPECIMENOrdering Facility: [facility] Address: [address] [place] [address] Performed By: #### 2 4323-8 ####[facility] LABCLIA [id number] [place] [address] ALT [Catalytic activity/Vol] 25 U/L Normal 10-54 [facility] Comment on above: Order Comment: Speci men Type: BLOOD SPECIMENOrdering Facility: [facility] Address: [address] [place] [address] Performed By: #### 2 4323-8 ####[facility] LABCLIA [id number] [place] [address] Anion gap [Moles/Vol] 12 mmol/L Normal 9-18 [facility] Comment on above: Order Comment: Speci men Type: BLOOD SPECIMENOrdering Facility: [facility] Address: [address] [place] [address] Performed By: #### 2 4323-8 ####[facility] LABCLIA [id number] [place] [address] AST [Catalytic activity/Vol] 18 U/L Normal 14-40 [facility] Comment on above: Order Comment: Speci men Type: BLOOD SPECIMENOrdering Facility: [facility] Address: [address] [place] [address] Performed By: #### 2 4323-8 ####[facility] LABCLIA [id number] [place] [address] Bilirubin [Mass/Vol] 0.8 mg/dL Normal 0.2-1.3 [facility] Comment on above: Order Comment: Speci men Type: BLOOD SPECIMENOrdering Facility: [facility] Address: [address] [place] [address] Performed By: #### 2 4323-8 ####[facility] LABCLIA [id number] [place] [address] Calcium [Mass/Vol] 9.1 mg/dL Normal 8.5-10.2 [facility] Comment on above: Order Comment: Speci men Type: BLOOD SPECIMENOrdering Facility: [facility] Address: [address] [place] [address] Performed By: #### 2 4323-8 ####[facility] LABCLIA [id number] [place] [address] Chloride [Moles/Vol] 100 mmol/L Normal 97-105 [facility] Comment on above: Order Comment: Speci men Type: BLOOD SPECIMENOrdering Facility: [facility] Address: [address] [place] [address] Performed By: #### 2 4323-8 ####[facility] LABCLIA [id number] [place] [address] CO2 [Moles/Vol] 25 mmol/L Normal 22-30 [facility] Comment on above: Order Comment: Speci men Type: BLOOD SPECIMENOrdering Facility: [facility] Address: [address] [place] [address] Performed By: #### 2 4323-8 ####[facility] LABCLIA [id number] [place] [address] Creatinine [Mass/Vol] 1.20 mg/dL Normal 0.73-1.22 [facility] Comment on above: Order Comment: Speci men Type: BLOOD SPECIMENOrdering Facility: [facility] Address: [address] [place] [address] Performed By: #### 2 4323-8 ####[facility] LABCLIA [id number] [place] [address] Creatinine and Glomerular filtration rate.predicted panel (S/P/Bld) 67 mL/min/1.73m??? Normal >=60 [facility] Comment on above: Order Comment: Specmanolo rausch Type: BLOOD SPECIMENOrdering Facility: [facility] Address: [address] [place] [address] Result Comment: Landy mated Glomerular Filtration Rate [...] actual GFR. Performed By: #### 2 4323-8 ####[facility] LABIA [id number] [place] [address] Glucose [Mass/Vol] 100 mg/dL High 74-99 [facility] Comment on above: Order Comment: Speci shalom Type: BLOOD SPECIMENOrdering Facility: [facility] Address: [address] [place] [address] Result Comment: [employer] [place] [employer] Association (ADA) provides guidance for cutoff [...] Standards of Medical Care in Diabetes 2016, [place] [employer]. Diabetes Care. 2016.39(Suppl 1). Performed By: #### 2 4323-8 ####[facility] LABCLIA [id number] [place] [address] Potassium [Moles/Vol] 3.9 mmol/L Normal 3.7-5.1 [facility] Comment on above: Order Comment: Speci men Type: BLOOD SPECIMENOrdering Facility: [facility] Address: [address] [place] [address] Performed By: #### 2 4323-8 ####[facility] LABCLIA [id number] [place] [address] Protein [Mass/Vol] 7.3 g/dL Normal 6.3-8.0 [facility] Comment on above: Order Comment: Speci men Type: BLOOD SPECIMENOrdering Facility: [facility] Address: [address] [place] [address] Performed By: #### 2 4323-8 ####[facility] LABCLIA [id number] [place] [address] Sodium [Moles/Vol] 137 mmol/L Normal 136-144 [facility] Comment on above: Order Comment: Speci men Type: BLOOD SPECIMENOrdering Facility: [facility] Address: [address] [place] [address] Performed By: #### 2 4323-8 ####[facility] LABCLIA [id number] [place] [address] Urea nitrogen [Mass/Vol] 15 mg/dL Normal 9-24 [facility] Comment on above: Order Comment: Speci men Type: BLOOD SPECIMENOrdering Facility: [facility] Address: [address] [place] [address] Performed By: #### 2 4323-8 ####[facility] LABCLIA [id number] [place] [address] NM PET/CT SKULL-THIGH SUBQon 11-25-2023 NM PET/CT SKULL-THIGH SUBQ Normal [facility] TSH SerPl-aCncon 11-25-2023 TSH Qn 3.890 m[IU]/L Normal 0.270-4.200 [facility] Comment on above: Order Comment: Speci men Type: BLOOD SPECIMENOrdering Facility: [facility] Address: [address] [place] [address] Performed By: #### 3 016-3 ####[facility] LABCLIA [id number] [facility] [id number] [address] [place] CNPNon 11-24-2023 CNPN Normal [facility] CNOVon 11-21-2023 CNOV Normal [facility] CNPNon 11-11-2023 CNPN Normal [facility] CBC W Auto Differential pane l (Bld)on 11-04-2023 Basophils (Bld) [#/Vol] <0.11 k/uL [facility] Basophils/100 WBC (Bld) 0.4 % [facility] Differential cell count method Nom (Bld) Auto [facility] Eosinophils (Bld) [#/Vol] 0.16 10*3/uL <0.46 k/uL [facility] Eosinophils/100 WBC (Bld) 2.9 % [facility] Erythrocyte distribution width (RBC) [Ratio] 17.0 % High 11.5 - 15.0 % [facility] Hematocrit (Bld) [Volume fraction] 37.1 % Low 39.0 - 51.0 % [facility] Hemoglobin (Bld) [Mass/Vol] 12.5 g/dL Low 13.0 - 17.0 g/dL [facility] Immature granulocytes (Bld) [#/Vol] 0.03 10*3/uL <0.10 k/uL [facility] Immature granulocytes/100 WBC (Bld) 0.5 % [facility] Lymphocytes (Bld) [#/Vol] 0.86 10*3/uL Low 1.00 - 4.00 k/uL [facility] Lymphocytes/100 WBC (Bld) 15.4 % [facility] MCH (RBC) [Entitic mass] 30.9 pg 26.0 - 34.0 pg [facility] MCHC (RBC) [Mass/Vol] 33.7 g/dL 30.5 - 36.0 g/dL [facility] MCV (RBC) [Entitic vol] 91.6 fL 80.0 - 100.0 fL [facility] Monocytes (Bld) [#/Vol] 0.95 10*3/uL High <0.87 k/uL [facility] Monocytes/100 WBC (Bld) 17.0 % [facility] Neutrophils (Bld) [#/Vol] 3.57 10*3/uL 1.45 - 7.50 k/uL [facility] Neutrophils/100 WBC (Bld) 63.8 % [facility] Nucleated RBC (Bld) [#/Vol] <0.01 k/uL [facility] Nucleated RBC/100 WBC (Bld) [Ratio] 0.0 /100 WBC [facility] Platelet mean volume (Bld) [Entitic vol] 10.7 fL 9.0 - 12.7 fL [facility] Platelets (Bld) [#/Vol] 186 10*3/uL 150 - 400 k/uL [facility] RBC (Bld) [#/Vol] 4.05 10*6/uL Low 4.20 - 6.00 m/uL [facility] WBC (Bld) [#/Vol] 5.59 10*3/uL 3.70 - 11.00 k/u L [facility] Basophils (Bld) [#/Vol] 10*3/uL Normal <0.11 [facility] Comment on above: Order Comment: Speci men Type: BLOOD SPECIMENOrdering Facility: [facility] Address: [address] [place] [address] Performed By: #### 5 7021-8 ####[facility] LABCLIA [id number] [place] [address] Basophils/100 WBC (Bld) 0.4 % Normal [facility] Comment on above: Order Comment: Speci men Type: BLOOD SPECIMENOrdering Facility: [facility] Address: [address] [place] [address] Performed By: #### 5 7021-8 ####[facility] LABCLIA [id number] [place] [address] Differential cell count method Nom (Bld) Auto Normal [facility] Comment on above: Order Comment: Speci men Type: BLOOD SPECIMENOrdering Facility: [facility] Address: [address] [place] [address] Performed By: #### 5 7021-8 ####[facility] LABCLIA [id number] [place] [address] Eosinophils (Bld) [#/Vol] 0.16 10*3/uL Normal <0.46 [facility] Comment on above: Order Comment: Speci men Type: BLOOD SPECIMENOrdering Facility: [facility] Address: [address] [place] [address] Performed By: #### 5 7021-8 ####[facility] LABCLIA [id number] [place] [address] Eosinophils/100 WBC (Bld) 2.9 % Normal [facility] Comment on above: Order Comment: Speci men Type: BLOOD SPECIMENOrdering Facility: [facility] Address: [address] [place] [address] Performed By: #### 5 7021-8 ####[facility] LABCLIA [id number] [place] [address] Erythrocyte distribution width (RBC) [Ratio] 17.0 % High 11.5-15.0 [facility] Comment on above: Order Comment: Speci men Type: BLOOD SPECIMENOrdering Facility: [facility] Address: [address] [place] [address] Performed By: #### 5 7021-8 ####[facility] LABCLIA [id number] [place] [address] Hematocrit (Bld) [Volume fraction] 37.1 % Low 39.0-51.0 [facility] Comment on above: Order Comment: Speci men Type: BLOOD SPECIMENOrdering Facility: [facility] Address: [address] [place] [address] Performed By: #### 5 7021-8 ####[facility] LABCLIA [id number] [place] [address] Hemoglobin (Bld) [Mass/Vol] 12.5 g/dL Low 13.0-17.0 [facility] Comment on above: Order Comment: Speci men Type: BLOOD SPECIMENOrdering Facility: [facility] Address: [address] [place] [address] Performed By: #### 5 7021-8 ####[facility] LABCLIA [id number] [place] [address] Immature granulocytes (Bld) [#/Vol] 0.03 10*3/uL Normal <0.10 [facility] Comment on above: Order Comment: Speci men Type: BLOOD SPECIMENOrdering Facility: [facility] Address: [address] [place] [address] Performed By: #### 5 7021-8 ####[facility] LABCLIA [id number] [place] [address] Immature granulocytes/100 WBC (Bld) 0.5 % Normal [facility] Comment on above: Order Comment: Speci men Type: BLOOD SPECIMENOrdering Facility: [facility] Address: [address] [place] [address] Performed By: #### 5 7021-8 ####[facility] LABCLIA [id number] [place] [address] Lymphocytes (Bld) [#/Vol] 0.86 10*3/uL Low 1.00-4.00 [facility] Comment on above: Order Comment: Speci men Type: BLOOD SPECIMENOrdering Facility: [facility] Address: [address] [place] [address] Performed By: #### 5 7021-8 ####[facility] LABCLIA [id number] [place] [address] Lymphocytes/100 WBC (Bld) 15.4 % Normal [facility] Comment on above: Order Comment: Speci men Type: BLOOD SPECIMENOrdering Facility: [facility] Address: [address] [place] [address] Performed By: #### 5 7021-8 ####[facility] LABCLIA [id number] [place] [address] MCH (RBC) [Entitic mass] 30.9 pg Normal 26.0-34.0 [facility] Comment on above: Order Comment: Speci men Type: BLOOD SPECIMENOrdering Facility: [facility] Address: [address] [place] [address] Performed By: #### 5 7021-8 ####[facility] LABCLIA [id number] [place] [address] MCHC (RBC) [Mass/Vol] 33.7 g/dL Normal 30.5-36.0 [facility] Comment on above: Order Comment: Speci men Type: BLOOD SPECIMENOrdering Facility: [facility] Address: [address] [place] [address] Performed By: #### 5 7021-8 ####[facility] LABCLIA [id number] [place] [address] MCV (RBC) [Entitic vol] 91.6 fL Normal 80.0-100.0 [facility] Comment on above: Order Comment: Speci men Type: BLOOD SPECIMENOrdering Facility: [facility] Address: [address] [place] [address] Performed By: #### 5 7021-8 ####[facility] LABCLIA [id number] [place] [address] Monocytes (Bld) [#/Vol] 0.95 10*3/uL High <0.87 [facility] Comment on above: Order Comment: Speci men Type: BLOOD SPECIMENOrdering Facility: [facility] Address: [address] [place] [address] Performed By: #### 5 7021-8 ####[facility] LABIA [id number] [place] [address] Monocytes/100 WBC (Bld) 17.0 % Normal [facility] Comment on above: Order Comment: Speci men Type: BLOOD SPECIMENOrdering Facility: [facility] Address: [address] [place] [address] Performed By: #### 5 7021-8 ####[facility] LABCLIA [id number] [place] [address] Neutrophils (Bld) [#/Vol] 3.57 10*3/uL Normal 1.45-7.50 [facility] Comment on above: Order Comment: Speci men Type: BLOOD SPECIMENOrdering Facility: [facility] Address: [address] [place] [address] Performed By: #### 5 7021-8 ####[facility] LABCLIA [id number] [place] [address] Neutrophils/100 WBC (Bld) 63.8 % Normal [facility] Comment on above: Order Comment: Speci men Type: BLOOD SPECIMENOrdering Facility: [facility] Address: [address] [place] [address] Performed By: #### 5 7021-8 ####[facility] LABCLIA [id number] [place] [address] Nucleated RBC (Bld) [#/Vol] 10*3/uL Normal <0.01 [facility] Comment on above: Order Comment: Speci men Type: BLOOD SPECIMENOrdering Facility: [facility] Address: [address] [place] [address] Performed By: #### 5 7021-8 ####[facility] LABCLIA [id number] [place] [address] Nucleated RBC/100 WBC (Bld) [Ratio] 0.0 /100 WBC Normal [facility] Comment on above: Order Comment: Speci men Type: BLOOD SPECIMENOrdering Facility: [facility] Address: [address] [place] [address] Performed By: #### 5 7021-8 ####[facility] LABCLIA [id number] [place] [address] Platelet mean volume (Bld) [Entitic vol] 10.7 fL Normal 9.0-12.7 [facility] Comment on above: Order Comment: Speci men Type: BLOOD SPECIMENOrdering Facility: [facility] Address: [address] [place] [address] Performed By: #### 5 7021-8 ####[facility] LABCLIA [id number] [place] [address] Platelets (Bld) [#/Vol] 186 10*3/uL Normal 150-400 [facility] Comment on above: Order Comment: Speci men Type: BLOOD SPECIMENOrdering Facility: [facility] Address: [address] [place] [address] Performed By: #### 5 7021-8 ####[facility] LABIA [id number] [place] [address] RBC (Bld) [#/Vol] 4.05 10*6/uL Low 4.20-6.00 [facility] Comment on above: Order Comment: Speci men Type: BLOOD SPECIMENOrdering Facility: [facility] Address: [address] [place] [address] Performed By: #### 5 7021-8 ####[facility] LABIA [id number] [place] [address] WBC (Bld) [#/Vol] 5.59 10*3/uL Normal 3.70-11.00 [facility] Comment on above: Order Comment: Speci men Type: BLOOD SPECIMENOrdering Facility: [facility] Address: [address] [place] [address] Performed By: #### 5 7021-8 ####[facility] LABIA [id number] [place] [address] CNCNPATEDon 11-04-2023 CNCNPATED Normal [facility] CNOVSPon 11-04-2023 CNOVSP Normal [facility] CNPNon 11-04-2023 CNPN Normal [facility] Comprehensive metabolic 2000 panelon 11-04-2023 Albumin [Mass/Vol] 4.0 g/dL 3.9 - 4.9 g/dL [facility] ALP [Catalytic activity/Vol] 65 U/L 38 - 113 U/L [facility] ALT [Catalytic activity/Vol] 415 U/L High 10 - 54 U/L [facility] Anion gap [Moles/Vol] 14 mmol/L 9 - 18 mmol/L [facility] AST [Catalytic activity/Vol] 100 U/L High 14 - 40 U/L [facility] Bilirubin [Mass/Vol] 1.0 mg/dL 0.2 - 1.3 mg/dL [facility] Calcium [Mass/Vol] 9.9 mg/dL 8.5 - 10.2 mg/dL [facility] Chloride [Moles/Vol] 107 mmol/L High 97 - 105 mmol/L [facility] CO2 [Moles/Vol] 23 mmol/L 22 - 30 mmol/L [facility] Creatinine [Mass/Vol] 1.23 mg/dL High 0.73 - 1.22 mg/dL [facility] Estimated Glomerular Filtration Rate 65 mL/min/1.73m >=60 mL/min/1.73m [facility] Glucose [Mass/Vol] 95 mg/dL 74 - 99 mg/dL [facility] Potassium [Moles/Vol] 3.5 mmol/L Low 3.7 - 5.1 mmol/L [facility] Protein [Mass/Vol] 7.3 g/dL 6.3 - 8.0 g/dL [facility] Sodium [Moles/Vol] 144 mmol/L 136 - 144 mmol/L [facility] Urea nitrogen [Mass/Vol] 19 mg/dL 9 - 24 mg/dL [facility] Albumin [Mass/Vol] 4.0 g/dL Normal 3.9-4.9 [facility] Comment on above: Order Comment: Speci men Type: BLOOD SPECIMENOrdering Facility: [facility] Address: [address] [place] [address] Performed By: #### 2 4323-8 ####[facility] LABCLIA [id number] [place] [address] ALP [Catalytic activity/Vol] 65 U/L Normal 38-113 [facility] Comment on above: Order Comment: Speci men Type: BLOOD SPECIMENOrdering Facility: [facility] Address: [address] [place] [place] [id number] Performed By: #### 2 4323-8 ####[facility] LABCLIA [id number] [place] [address] ALT [Catalytic activity/Vol] 415 U/L High 10-54 [facility] Comment on above: Order Comment: Speci men Type: BLOOD SPECIMENOrdering Facility: [facility] Address: [address] [place] [address] Performed By: #### 2 4323-8 ####[facility] LABCLIA [id number] [place] [address] Anion gap [Moles/Vol] 14 mmol/L Normal 9-18 [facility] Comment on above: Order Comment: Speci men Type: BLOOD SPECIMENOrdering Facility: [facility] Address: [address] [place] [address] Performed By: #### 2 4323-8 ####[facility] LABCLIA [id number] [place] [address] AST [Catalytic activity/Vol] 100 U/L High 14-40 [facility] Comment on above: Order Comment: Speci men Type: BLOOD SPECIMENOrdering Facility: [facility] Address: [address] [place] [address] Performed By: #### 2 4323-8 ####[facility] LABCLIA [id number] [place] [address] Bilirubin [Mass/Vol] 1.0 mg/dL Normal 0.2-1.3 [facility] Comment on above: Order Comment: Speci men Type: BLOOD SPECIMENOrdering Facility: [facility] Address: [address] [place] [address] Performed By: #### 2 4323-8 ####[facility] LABCLIA [id number] [place] [address] Calcium [Mass/Vol] 9.9 mg/dL Normal 8.5-10.2 [facility] Comment on above: Order Comment: Speci men Type: BLOOD SPECIMENOrdering Facility: [facility] Address: [address] [place] [address] Performed By: #### 2 4323-8 ####[facility] LABCLIA [id number] [place] [address] Chloride [Moles/Vol] 107 mmol/L High 97-105 [facility] Comment on above: Order Comment: Speci men Type: BLOOD SPECIMENOrdering Facility: [facility] Address: [address] [place] [address] Performed By: #### 2 4323-8 ####[facility] LABCLIA [id number] [place] [address] CO2 [Moles/Vol] 23 mmol/L Normal 22-30 [facility] Comment on above: Order Comment: Speci men Type: BLOOD SPECIMENOrdering Facility: [facility] Address: [address] [place] [address] Performed By: #### 2 4323-8 ####[facility] LABCLIA [id number] [place] [address] Creatinine [Mass/Vol] 1.23 mg/dL High 0.73-1.22 [facility] Comment on above: Order Comment: Speci men Type: BLOOD SPECIMENOrdering Facility: [facility] Address: [address] [place] [address] Performed By: #### 2 4323-8 ####[facility] LABCLIA [id number] [place] [address] Creatinine and Glomerular filtration rate.predicted panel (S/P/Bld) 65 mL/min/1.73m??? Normal >=60 [facility] Comment on above: Order Comment: Speci men Type: BLOOD SPECIMENOrdering Facility: [facility] Address: [address] [place] [address] Result Comment: Landy mated Glomerular Filtration Rate [...] actual GFR. Performed By: #### 2 4323-8 ####[facility] LABCLIA [id number] [place] [address] Glucose [Mass/Vol] 95 mg/dL Normal 74-99 [facility] Comment on above: Order Comment: Speci men Type: BLOOD SPECIMENOrdering Facility: [facility] Address: [address] [place] [address] Result Comment: The [place] [employer] (ADA) provides guidance for cutoff [...] Standards of Medical Care in Diabetes 2016, [place] [employer]. Diabetes Care. 2016.39(Suppl 1). Performed By: #### 2 4323-8 ####[facility] LABCLIA [id number] [place] [address] Potassium [Moles/Vol] 3.5 mmol/L Low 3.7-5.1 [facility] Comment on above: Order Comment: Speci men Type: BLOOD SPECIMENOrdering Facility: [facility] Address: [address] [place] [address] Performed By: #### 2 4323-8 ####[facility] LABCLIA [id number] [place] [address] Protein [Mass/Vol] 7.3 g/dL Normal 6.3-8.0 [facility] Comment on above: Order Comment: Speci men Type: BLOOD SPECIMENOrdering Facility: [facility] Address: [address] [place] [address] Performed By: #### 2 4323-8 ####[facility] LABCLIA [id number] [place] [address] Sodium [Moles/Vol] 144 mmol/L Normal 136-144 [facility] Comment on above: Order Comment: Speci men Type: BLOOD SPECIMENOrdering Facility: [facility] Address: [address] [place] [address] Performed By: #### 2 4323-8 ####[facility] LABCLIA [id number] [place] [address] Urea nitrogen [Mass/Vol] 19 mg/dL Normal 9-24 [facility] Comment on above: Order Comment: Speci men Type: BLOOD SPECIMENOrdering Facility: [facility] Address: [address] [place] [address] Performed By: #### 2 4323-8 ####[facility] LABCLIA [id number] [place] [address] CNPNon 10-24-2023 CNPN Normal [facility] CNPNon 10-21-2023 CNPN Normal [facility] CT CHEST W IVCONon CT CHEST W IVCON Normal [facility] CT Chest W contrast Anoop [facility] CBC W Auto Differential pane l (Bld)on 10-20-2023 Basophils (Bld) [#/Vol] <0.11 k/uL [facility] Basophils/100 WBC (Bld) 0.4 % [facility] Differential cell count method Nom (Bld) Auto [facility] Eosinophils (Bld) [#/Vol] 0.07 10*3/uL <0.46 k/uL [facility] Eosinophils/100 WBC (Bld) 1.3 % [facility] Erythrocyte distribution width (RBC) [Ratio] 15.9 % High 11.5 - 15.0 % [facility] Hematocrit (Bld) [Volume fraction] 40.6 % 39.0 - 51.0 % [facility] Hemoglobin (Bld) [Mass/Vol] 13.6 g/dL 13.0 - 17.0 g/dL [facility] Immature granulocytes (Bld) [#/Vol] 0.03 10*3/uL <0.10 k/uL [facility] Immature granulocytes/100 WBC (Bld) 0.5 % [facility] Lymphocytes (Bld) [#/Vol] 1.04 10*3/uL 1.00 - 4.00 k/uL [facility] Lymphocytes/100 WBC (Bld) 18.6 % [facility] MCH (RBC) [Entitic mass] 30.4 pg 26.0 - 34.0 pg [facility] MCHC (RBC) [Mass/Vol] 33.5 g/dL 30.5 - 36.0 g/dL [facility] MCV (RBC) [Entitic vol] 90.6 fL 80.0 - 100.0 fL [facility] Monocytes (Bld) [#/Vol] 0.78 10*3/uL <0.87 k/uL [facility] Monocytes/100 WBC (Bld) 13.9 % [facility] Neutrophils (Bld) [#/Vol] 3.66 10*3/uL 1.45 - 7.50 k/uL [facility] Neutrophils/100 WBC (Bld) 65.3 % [facility] Nucleated RBC (Bld) [#/Vol] <0.01 k/uL [facility] Nucleated RBC/100 WBC (Bld) [Ratio] 0.0 /100 WBC [facility] Platelet mean volume (Bld) [Entitic vol] 10.7 fL 9.0 - 12.7 fL [facility] Platelets (Bld) [#/Vol] 214 10*3/uL 150 - 400 k/uL [facility] RBC (Bld) [#/Vol] 4.48 10*6/uL 4.20 - 6.00 m/uL [facility] WBC (Bld) [#/Vol] 5.60 10*3/uL 3.70 - 11.00 k/u L [facility] Basophils (Bld) [#/Vol] 10*3/uL Normal <0.11 [facility] Comment on above: Order Comment: Speci men Type: BLOOD SPECIMENOrdering Facility: [facility] Address: [address] [place] [address] Performed By: #### 5 7021-8 ####[facility] LABCLIA [id number] [place] [address] Basophils/100 WBC (Bld) 0.4 % Normal [facility] Comment on above: Order Comment: Speci men Type: BLOOD SPECIMENOrdering Facility: [facility] Address: [address] [place] [address] Performed By: #### 5 7021-8 ####[facility] LABCLIA [id number] [place] [address] Differential cell count method Nom (Bld) Auto Normal [facility] Comment on above: Order Comment: Speci men Type: BLOOD SPECIMENOrdering Facility: [facility] Address: [address] [place] [address] Performed By: #### 5 7021-8 ####[facility] LABCLIA [id number] [place] [address] Eosinophils (Bld) [#/Vol] 0.07 10*3/uL Normal <0.46 [facility] Comment on above: Order Comment: Speci men Type: BLOOD SPECIMENOrdering Facility: [facility] Address: [address] [place] [address] Performed By: #### 5 7021-8 ####[facility] LABCLIA [id number] [place] [address] Eosinophils/100 WBC (Bld) 1.3 % Normal [facility] Comment on above: Order Comment: Speci men Type: BLOOD SPECIMENOrdering Facility: [facility] Address: [address] [place] [address] Performed By: #### 5 7021-8 ####[facility] LABCLIA [id number] [place] [address] Erythrocyte distribution width (RBC) [Ratio] 15.9 % High 11.5-15.0 [facility] Comment on above: Order Comment: Speci men Type: BLOOD SPECIMENOrdering Facility: [facility] Address: [address] [place] [address] Performed By: #### 5 7021-8 ####[facility] LABCLIA [id number] [place] [address] Hematocrit (Bld) [Volume fraction] 40.6 % Normal 39.0-51.0 [facility] Comment on above: Order Comment: Speci men Type: BLOOD SPECIMENOrdering Facility: [facility] Address: [address] [place] [address] Performed By: #### 5 7021-8 ####[facility] LABCLIA [id number] [place] [address] Hemoglobin (Bld) [Mass/Vol] 13.6 g/dL Normal 13.0-17.0 [facility] Comment on above: Order Comment: Speci men Type: BLOOD SPECIMENOrdering Facility: [facility] Address: [address] [place] [address] Performed By: #### 5 7021-8 ####[facility] LABIA [id number] [place] [address] Immature granulocytes (Bld) [#/Vol] 0.03 10*3/uL Normal <0.10 [facility] Comment on above: Order Comment: Speci men Type: BLOOD SPECIMENOrdering Facility: [facility] Address: [address] [place] [address] Performed By: #### 5 7021-8 ####[facility] LABCLIA [id number] [place] [address] Immature granulocytes/100 WBC (Bld) 0.5 % Normal [facility] Comment on above: Order Comment: Speci men Type: BLOOD SPECIMENOrdering Facility: [facility] Address: [address] [place] [address] Performed By: #### 5 7021-8 ####[facility] LABCLIA [id number] [place] [address] Lymphocytes (Bld) [#/Vol] 1.04 10*3/uL Normal 1.00-4.00 [facility] Comment on above: Order Comment: Speci men Type: BLOOD SPECIMENOrdering Facility: [facility] Address: [address] [place] [address] Performed By: #### 5 7021-8 ####[facility] LABCLIA [id number] [place] [address] Lymphocytes/100 WBC (Bld) 18.6 % Normal [facility] Comment on above: Order Comment: Speci men Type: BLOOD SPECIMENOrdering Facility: [facility] Address: [address] [place] [address] Performed By: #### 5 7021-8 ####[facility] LABCLIA [id number] [place] [address] MCH (RBC) [Entitic mass] 30.4 pg Normal 26.0-34.0 [facility] Comment on above: Order Comment: Speci men Type: BLOOD SPECIMENOrdering Facility: [facility] Address: [address] [place] [address] Performed By: #### 5 7021-8 ####[facility] LABCLIA [id number] [place] [address] MCHC (RBC) [Mass/Vol] 33.5 g/dL Normal 30.5-36.0 [facility] Comment on above: Order Comment: Speci men Type: BLOOD SPECIMENOrdering Facility: [facility] Address: [address] [place] [address] Performed By: #### 5 7021-8 ####[facility] LABCLIA [id number] [place] [address] MCV (RBC) [Entitic vol] 90.6 fL Normal 80.0-100.0 [facility] Comment on above: Order Comment: Speci men Type: BLOOD SPECIMENOrdering Facility: [facility] Address: [address] [place] [address] Performed By: #### 5 7021-8 ####[facility] LABCLIA [id number] [place] [address] Monocytes (Bld) [#/Vol] 0.78 10*3/uL Normal <0.87 [facility] Comment on above: Order Comment: Speci men Type: BLOOD SPECIMENOrdering Facility: [facility] Address: [address] [place] [address] Performed By: #### 5 7021-8 ####[facility] LABCLIA [id number] [place] [address] Monocytes/100 WBC (Bld) 13.9 % Normal [facility] Comment on above: Order Comment: Speci men Type: BLOOD SPECIMENOrdering Facility: [facility] Address: [address] [place] [address] Performed By: #### 5 7021-8 ####[facility] LABCLIA [id number] [place] [address] Neutrophils (Bld) [#/Vol] 3.66 10*3/uL Normal 1.45-7.50 [facility] Comment on above: Order Comment: Speci men Type: BLOOD SPECIMENOrdering Facility: [facility] Address: [address] [place] [address] Performed By: #### 5 7021-8 ####[facility] LABCLIA [id number] [place] [address] Neutrophils/100 WBC (Bld) 65.3 % Normal [facility] Comment on above: Order Comment: Speci men Type: BLOOD SPECIMENOrdering Facility: [facility] Address: [address] [place] [address] Performed By: #### 5 7021-8 ####[facility] LABCLIA [id number] [place] [address] Nucleated RBC (Bld) [#/Vol] 10*3/uL Normal <0.01 [facility] Comment on above: Order Comment: Speci men Type: BLOOD SPECIMENOrdering Facility: [facility] Address: [address] [place] [address] Performed By: #### 5 7021-8 ####[facility] LABCLIA [id number] [place] [address] Nucleated RBC/100 WBC (Bld) [Ratio] 0.0 /100 WBC Normal [facility] Comment on above: Order Comment: Speci men Type: BLOOD SPECIMENOrdering Facility: [facility] Address: [address] [place] [address] Performed By: #### 5 7021-8 ####[facility] LABCLIA [id number] [place] [address] Platelet mean volume (Bld) [Entitic vol] 10.7 fL Normal 9.0-12.7 [facility] Comment on above: Order Comment: Speci men Type: BLOOD SPECIMENOrdering Facility: [facility] Address: [address] [place] [address] Performed By: #### 5 7021-8 ####[facility] LABCLIA [id number] [place] [address] Platelets (Bld) [#/Vol] 214 10*3/uL Normal 150-400 [facility] Comment on above: Order Comment: Speci men Type: BLOOD SPECIMENOrdering Facility: [facility] Address: [address] [place] [address] Performed By: #### 5 7021-8 ####[facility] LABIA [id number] [place] [address] RBC (Bld) [#/Vol] 4.48 10*6/uL Normal 4.20-6.00 [facility] Comment on above: Order Comment: Speci men Type: BLOOD SPECIMENOrdering Facility: [facility] Address: [address] [place], [place] [address], [place] [address] Performed By: #### 5 7021-8 ####[facility] LABCLIA [id number] [place] [address] WBC (Bld) [#/Vol] 5.60 10*3/uL Normal 3.70-11.00 [facility] Comment on above: Order Comment: Speci men Type: BLOOD SPECIMENOrdering Facility: [facility] Address: [address] [place] [address] Performed By: #### 5 7021-8 ####[facility] LABCLIA [id number] [place] [address] CNOVSPon 10-20-2023 CNOVSP Normal [facility] Comprehensive metabolic 2000 panelon 10-20-2023 Albumin [Mass/Vol] 4.6 g/dL 3.9 - 4.9 g/dL [facility] ALP [Catalytic activity/Vol] 55 U/L 38 - 113 U/L [facility] ALT [Catalytic activity/Vol] 48 U/L 10 - 54 U/L [facility] Anion gap [Moles/Vol] 15 mmol/L 9 - 18 mmol/L [facility] AST [Catalytic activity/Vol] 30 U/L 14 - 40 U/L [facility] Bilirubin [Mass/Vol] 0.6 mg/dL 0.2 - 1.3 mg/dL [facility] Calcium [Mass/Vol] 10.9 mg/dL High 8.5 - 10.2 mg/dL [facility] Chloride [Moles/Vol] 105 mmol/L 97 - 105 mmol/L [facility] CO2 [Moles/Vol] 26 mmol/L 22 - 30 mmol/L [facility] Creatinine [Mass/Vol] 1.28 mg/dL High 0.73 - 1.22 mg/dL [facility] Estimated Glomerular Filtration Rate 62 mL/min/1.73m >=60 mL/min/1.73m [facility] Glucose [Mass/Vol] 95 mg/dL 74 - 99 mg/dL [facility] Potassium [Moles/Vol] 4.2 mmol/L 3.7 - 5.1 mmol/L [facility] Protein [Mass/Vol] 8.0 g/dL 6.3 - 8.0 g/dL [facility] Sodium [Moles/Vol] 146 mmol/L High 136 - 144 mmol/L [facility] Urea nitrogen [Mass/Vol] 25 mg/dL High 9 - 24 mg/dL [facility] Albumin [Mass/Vol] 4.6 g/dL Normal 3.9-4.9 [facility] Comment on above: Order Comment: Speci men Type: BLOOD SPECIMENOrdering Facility: [facility] Address: [address] [place] [address] Performed By: #### 2 4323-8 ####[facility] LABCLIA [id number] [place] [address] ALP [Catalytic activity/Vol] 55 U/L Normal 38-113 [facility] Comment on above: Order Comment: Speci men Type: BLOOD SPECIMENOrdering Facility: [facility] Address: [address] [place] [address] Performed By: #### 2 4323-8 ####[facility] LABCLIA [id number] [place] [address] ALT [Catalytic activity/Vol] 48 U/L Normal 10-54 [facility] Comment on above: Order Comment: Speci men Type: BLOOD SPECIMENOrdering Facility: [facility] Address: [address] [place] [address] Performed By: #### 2 4323-8 ####[facility] LABCLIA [id number] [place] [address] Anion gap [Moles/Vol] 15 mmol/L Normal 9-18 [facility] Comment on above: Order Comment: Speci men Type: BLOOD SPECIMENOrdering Facility: [facility] Address: [address] [place] [address] Performed By: #### 2 4323-8 ####[facility] LABCLIA [id number] [place] [address] AST [Catalytic activity/Vol] 30 U/L Normal 14-40 [facility] Comment on above: Order Comment: Speci men Type: BLOOD SPECIMENOrdering Facility: [facility] Address: [address] [place] [address] Performed By: #### 2 4323-8 ####[facility] LABCLIA [id number] [place] [address] Bilirubin [Mass/Vol] 0.6 mg/dL Normal 0.2-1.3 [facility] Comment on above: Order Comment: Speci men Type: BLOOD SPECIMENOrdering Facility: [facility] Address: [address] [place] [address] Performed By: #### 2 4323-8 ####[facility] LABCLIA [id number] [place] [address] Calcium [Mass/Vol] 10.9 mg/dL High 8.5-10.2 [facility] Comment on above: Order Comment: Speci men Type: BLOOD SPECIMENOrdering Facility: [facility] Address: [address] [place] [address] Result Comment: RECH ECKED JT Performed By: #### 2 4323-8 ####[facility] LABCLIA [id number] [place] [address] Chloride [Moles/Vol] 105 mmol/L Normal 97-105 [facility] Comment on above: Order Comment: Speci men Type: BLOOD SPECIMENOrdering Facility: [facility] Address: [address] [place] [address] Performed By: #### 2 4323-8 ####[facility] LABCLIA [id number] [place] [address] CO2 [Moles/Vol] 26 mmol/L Normal 22-30 [facility] Comment on above: Order Comment: Speci men Type: BLOOD SPECIMENOrdering Facility: [facility] Address: [address] [place] [address] Performed By: #### 2 4323-8 ####[facility] LABCLIA [id number] [place] [address] Creatinine [Mass/Vol] 1.28 mg/dL High 0.73-1.22 [facility] Comment on above: Order Comment: Ajay rausch Type: BLOOD SPECIMENOrdering Facility: [facility] Address: [address] [place] [address] Performed By: #### 2 4323-8 ####[facility] LABCLIA [id number] [place] [address] Creatinine and Glomerular filtration rate.predicted panel (S/P/Bld) 62 mL/min/1.73m??? Normal >=60 [facility] Comment on above: Order Comment: Ajay rausch Type: BLOOD SPECIMENOrdering Facility: [facility] Address: [address] [place] [address] Result Comment: Landy mated Glomerular Filtration Rate [...] actual GFR. Performed By: #### 2 4323-8 ####[facility] LABCLIA [id number] [place] [address] Glucose [Mass/Vol] 95 mg/dL Normal 74-99 [facility] Comment on above: Order Comment: Ajay rausch Type: BLOOD SPECIMENOrdering Facility: [facility] Address: [address] [place] [address] Result Comment: The [place] [employer] (ADA) provides guidance for cutoff [...] Standards of Medical Care in Diabetes 2016, [place] [employer]. Diabetes Care. 2016.39(Suppl 1). Performed By: #### 2 4323-8 ####[facility] LABCLIA [id number] [place] [address] Potassium [Moles/Vol] 4.2 mmol/L Normal 3.7-5.1 [facility] Comment on above: Order Comment: Speci men Type: BLOOD SPECIMENOrdering Facility: [facility] Address: [address] [place] [address] Performed By: #### 2 4323-8 ####[facility] LABCLIA [id number] [place] [address] Protein [Mass/Vol] 8.0 g/dL Normal 6.3-8.0 [facility] Comment on above: Order Comment: Speci men Type: BLOOD SPECIMENOrdering Facility: [facility] Address: [address] [place] [address] Performed By: #### 2 4323-8 ####[facility] LABCLIA [id number] [place] [address] Sodium [Moles/Vol] 146 mmol/L High 136-144 [facility] Comment on above: Order Comment: Speci men Type: BLOOD SPECIMENOrdering Facility: [facility] Address: [address] [place] [address] Performed By: #### 2 4323-8 ####[facility] LABCLIA [id number] [place] [address] Urea nitrogen [Mass/Vol] 25 mg/dL High 9-24 [facility] Comment on above: Order Comment: Speci men Type: BLOOD SPECIMENOrdering Facility: [facility] Address: [address] [place] [address] Performed By: #### 2 4323-8 ####[facility] LABCLIA [id number] [place] [address] TSH BLDon 10-20-2023 TSH Qn 4.200 m[IU]/L 0.270 - 4.200 mIU/L [facility] TSH SerPl-aCncon 10-20-2023 TSH Qn 4.200 m[IU]/L Normal 0.270-4.200 [facility] Comment on above: Order Comment: Speci men Type: BLOOD SPECIMENOrdering Facility: [facility] Address: [address] [place] [address] Performed By: #### 3 016-3 ####[facility] LABCLIA [id number] [address] [place] Ambulatory Visit Summaryon 0 10-15-2023 Ambulatory Visit [...] 11:20 AM EDT With: Enrique Austin Where: [facility] [place] Normal [address] [place] [address]- \.br\ Medications\.br\ What How Much When Instructions\.br\ Unchanged alprazolam (alprazolam 0.25 mg Tab) 1 Tablets By Mouth 3 times a day as needed for for anxiety\.br\ Unchanged amoxicillin (amoxicillin 875 mg Tab) 1 Tablets By Mouth 2 times a day Duration: 10 Days Pickup at [facility]\.br\ Unchanged atorvastatin (atorvastatin 40 mg Tab) [...] 90 tab(s), 0 Refill(s) \.br\ Pharmacy Information\.br\ [facility]: [address] [place], [place] [address] [phone]\.br\ Medications and Immunizations Administered\.br\ Given\.br\ triamcinolone acetonide [...] for choosing us for your care.\.br\ \.br\ [facility] [place] 10-15-2023 Consent [id number] #1.00TIFF Normal [facility] Medicine Office/Clini c Noteon 10-15-2023 [facility] Medicine Office/Clinic Note HPI Staff Cristal is [...] anxiety, # 30 tab(s), Refills(s) 0, Pharmacy: [facility], 169.6, cm, 03/17/23 10:54:00 EDT, Height/Length Dosing, 62, kg, 03/17/23 10:54:00 EDT, Weight Dosing amoxicillin, 875 mg = 1 tab(s), Oral, BID, X 10 day(s), # 20 tab(s), Refills(s) 0, Pharmacy: [facility], 169.5, cm, 10/15/23 11:53:00 EDT, Height/Length [...] (COVID-19) mRNA-1273 vaccine 11/15/2020 Recorded Normal [facility] Comment on above: Result Comment: Elec tronically Signed By: Enrique Austin\.br\Date and Time Signed: 10/15/23 12:20 EDT Ambulatory Visit Summaryon 0 10-08-2023 Ambulatory Visit Summary CRISTAL GU :1955 Visit Date:10/08/2023 Ambulatory Visit Instructions Your Diagnosis Anxiety BMI 20.0-20.9, adult Former smoker Your Care Team Attending Physician - Enirque Austin Primary Care Physician - Enrique Austin [...] 11:20 AM EDT With: Enrique Austin Where: [facility] Medicine [place] Normal [address] [place] [address]- \.br\ Medications\.br\ What How Much When Instructions\.br\ Unchanged alprazolam (alprazolam 0.25 mg Tab) 1 Tablets By Mouth 3 times a day as needed for for anxiety Pickup at [facility]\.br\ Unchanged alprazolam (alprazolam 0.25 mg Tab) [...] 90 tab(s), 0 Refill(s) \.br\ Pharmacy Information\.br\ [facility]: [address] [place] [address] [phone]\.br\ Allergies\.br\ No Known Allergies\.br\ Problems\.br\ Ongoing - [...] choosing us for your care.\.br\ \.br\ [facility] Family Medicine Office/Clini c Noteon 10-08-2023 Family Medicine Office/Clinic Note HPI Staff Cristal is a 68 year old male presenting for 3 month follow up Follow up for Mental Status: RUCHI 07/09/23 ERSI: 6 Medication adherence- Yes, takes medication as [...] days., # 45 tab(s), Refills(s) 0, Pharmacy: [facility], 169.5, cm, 09/02/23 11:42:00 EST, Height/Anuj... Orders: alprazolam, 0.25 mg = 1 tab(s), Oral, TID, PRN for anxiety, # 90 tab(s), Refills(s) 0, Pharmacy: [facility], 169.5, cm, 10/08/23 9:02:00 EDT, Height/Length [...] SARS-CoV-2 (COVID-19) mRNA-1273 vaccine 11/15/2020 Recorded Normal [facility] Comment on above: Result Comment: Elec tronically Signed By: Enrique Austin\.br\Date and Time Signed: 10/08/23 09:14 EDT Medication [place]enton 024 Medication Consent [id number] #1.00TIFF Normal [facility] CBC W Auto Differential pane l (Bld)on 09-22-2023 Basophils (Bld) [#/Vol] 0.03 10*3/uL <0.11 k/uL [facility] Basophils/100 WBC (Bld) 0.7 % [facility] Differential cell count method Nom (Bld) Auto [facility] Eosinophils (Bld) [#/Vol] 0.05 10*3/uL <0.46 k/uL [facility] Eosinophils/100 WBC (Bld) 1.2 % [facility] Erythrocyte distribution width (RBC) [Ratio] 17.0 % High 11.5 - 15.0 % [facility] Hematocrit (Bld) [Volume fraction] 40.7 % 39.0 - 51.0 % [facility] Hemoglobin (Bld) [Mass/Vol] 13.5 g/dL 13.0 - 17.0 g/dL [facility] Immature granulocytes (Bld) [#/Vol] 0.03 10*3/uL <0.10 k/uL [facility] Immature granulocytes/100 WBC (Bld) 0.7 % [facility] Lymphocytes (Bld) [#/Vol] 0.87 10*3/uL Low 1.00 - 4.00 k/uL [facility] Lymphocytes/100 WBC (Bld) 21.6 % [facility] MCH (RBC) [Entitic mass] 30.2 pg 26.0 - 34.0 pg [facility] MCHC (RBC) [Mass/Vol] 33.2 g/dL 30.5 - 36.0 g/dL [facility] MCV (RBC) [Entitic vol] 91.1 fL 80.0 - 100.0 fL [facility] Monocytes (Bld) [#/Vol] 0.73 10*3/uL <0.87 k/uL [facility] Monocytes/100 WBC (Bld) 18.1 % [facility] Neutrophils (Bld) [#/Vol] 2.32 10*3/uL 1.45 - 7.50 k/uL [facility] Neutrophils/100 WBC (Bld) 57.7 % [facility] Nucleated RBC (Bld) [#/Vol] <0.01 k/uL [facility] Nucleated RBC/100 WBC (Bld) [Ratio] 0.0 /100 WBC [facility] Platelet mean volume (Bld) [Entitic vol] 11.0 fL 9.0 - 12.7 fL [facility] Platelets (Bld) [#/Vol] 180 10*3/uL 150 - 400 k/uL [facility] RBC (Bld) [#/Vol] 4.47 10*6/uL 4.20 - 6.00 m/uL [facility] WBC (Bld) [#/Vol] 4.03 10*3/uL 3.70 - 11.00 k/u L [facility] Basophils (Bld) [#/Vol] 0.03 10*3/uL Normal <0.11 [facility] Comment on above: Order Comment: Speci men Type: BLOOD SPECIMENOrdering Facility: [facility] Address: [address] [place] [address] Performed By: #### 5 7021-8 ####[facility] LABCLIA [id number] [place] [address] Basophils/100 WBC (Bld) 0.7 % Normal [facility] Comment on above: Order Comment: Speci men Type: BLOOD SPECIMENOrdering Facility: [facility] Address: [address] [place] [address] Performed By: #### 5 7021-8 ####[facility] LABCLIA [id number] [place] [address] Differential cell count method Nom (Bld) Auto Normal [facility] Comment on above: Order Comment: Speci men Type: BLOOD SPECIMENOrdering Facility: [facility] Address: [address] [place] [address] Performed By: #### 5 7021-8 ####[facility] LABCLIA [id number] [place] [address] Eosinophils (Bld) [#/Vol] 0.05 10*3/uL Normal <0.46 [facility] Comment on above: Order Comment: Speci men Type: BLOOD SPECIMENOrdering Facility: [facility] Address: [address] [place] [address] Performed By: #### 5 7021-8 ####[facility] LABCLIA [id number] [place] [address] Eosinophils/100 WBC (Bld) 1.2 % Normal [facility] Comment on above: Order Comment: Speci men Type: BLOOD SPECIMENOrdering Facility: [facility] Address: [address] [place] [address] Performed By: #### 5 7021-8 ####[facility] LABCLIA [id number] [place] [address] Erythrocyte distribution width (RBC) [Ratio] 17.0 % High 11.5-15.0 [facility] Comment on above: Order Comment: Speci men Type: BLOOD SPECIMENOrdering Facility: [facility] Address: [address] [place] [address] Performed By: #### 5 7021-8 ####[facility] LABCLIA [id number] [place] [address] Hematocrit (Bld) [Volume fraction] 40.7 % Normal 39.0-51.0 [facility] Comment on above: Order Comment: Speci men Type: BLOOD SPECIMENOrdering Facility: [facility] Address: [address] [place] [address] Performed By: #### 5 7021-8 ####[facility] LABCLIA [id number] [place] [address] Hemoglobin (Bld) [Mass/Vol] 13.5 g/dL Normal 13.0-17.0 [facility] Comment on above: Order Comment: Speci men Type: BLOOD SPECIMENOrdering Facility: [facility] Address: [address] [place] [address] Performed By: #### 5 7021-8 ####[facility] LABCLIA [id number] [place] [address] Immature granulocytes (Bld) [#/Vol] 0.03 10*3/uL Normal <0.10 [facility] Comment on above: Order Comment: Speci men Type: BLOOD SPECIMENOrdering Facility: [facility] Address: [address] [place] [address] Performed By: #### 5 7021-8 ####[facility] LABCLIA [id number] [place] [address] Immature granulocytes/100 WBC (Bld) 0.7 % Normal [facility] Comment on above: Order Comment: Speci men Type: BLOOD SPECIMENOrdering Facility: [facility] Address: [address] [place] [address] Performed By: #### 5 7021-8 ####[facility] LABCLIA [id number] [place] [address] Lymphocytes (Bld) [#/Vol] 0.87 10*3/uL Low 1.00-4.00 [facility] Comment on above: Order Comment: Speci men Type: BLOOD SPECIMENOrdering Facility: [facility] Address: [address] [place] [address] Performed By: #### 5 7021-8 ####[facility] LABCLIA [id number] [place] [address] Lymphocytes/100 WBC (Bld) 21.6 % Normal [facility] Comment on above: Order Comment: Speci men Type: BLOOD SPECIMENOrdering Facility: [facility] Address: [address] [place] [address] Performed By: #### 5 7021-8 ####[facility] LABCLIA [id number] [place] [address] MCH (RBC) [Entitic mass] 30.2 pg Normal 26.0-34.0 [facility] Comment on above: Order Comment: Speci men Type: BLOOD SPECIMENOrdering Facility: [facility] Address: [address] [place] [address] Performed By: #### 5 7021-8 ####[facility] LABCLIA [id number] [place] [address] MCHC (RBC) [Mass/Vol] 33.2 g/dL Normal 30.5-36.0 [facility] Comment on above: Order Comment: Speci men Type: BLOOD SPECIMENOrdering Facility: [facility] Address: [address] [place] [address] Performed By: #### 5 7021-8 ####[facility] LABCLIA [id number] [place] [address] MCV (RBC) [Entitic vol] 91.1 fL Normal 80.0-100.0 [facility] Comment on above: Order Comment: Speci men Type: BLOOD SPECIMENOrdering Facility: [facility] Address: [address] [place] [address] Performed By: #### 5 7021-8 ####[facility] LABCLIA [id number] [place] [address] Monocytes (Bld) [#/Vol] 0.73 10*3/uL Normal <0.87 [facility] Comment on above: Order Comment: Speci men Type: BLOOD SPECIMENOrdering Facility: [facility] Address: [address] [place] [address] Performed By: #### 5 7021-8 ####[facility] LABCLIA [id number] [place] [address] Monocytes/100 WBC (Bld) 18.1 % Normal [facility] Comment on above: Order Comment: Speci men Type: BLOOD SPECIMENOrdering Facility: [facility] Address: [address] [place] [address] Performed By: #### 5 7021-8 ####[facility] LABCLIA [id number] [place] [address] Neutrophils (Bld) [#/Vol] 2.32 10*3/uL Normal 1.45-7.50 [facility] Comment on above: Order Comment: Speci men Type: BLOOD SPECIMENOrdering Facility: [facility] Address: [address] [place] [address] Performed By: #### 5 7021-8 ####[facility] LABCLIA [id number] [place] [address] Neutrophils/100 WBC (Bld) 57.7 % Normal [facility] Comment on above: Order Comment: Speci men Type: BLOOD SPECIMENOrdering Facility: [facility] Address: [address] [place] [address] Performed By: #### 5 7021-8 ####[facility] LABCLIA [id number] [place] [address] Nucleated RBC (Bld) [#/Vol] 10*3/uL Normal <0.01 [facility] Comment on above: Order Comment: Speci men Type: BLOOD SPECIMENOrdering Facility: [facility] Address: [address] [place] [address] Performed By: #### 5 7021-8 ####[facility] LABCLIA [id number] [place] [address] Nucleated RBC/100 WBC (Bld) [Ratio] 0.0 /100 WBC Normal [facility] Comment on above: Order Comment: Speci men Type: BLOOD SPECIMENOrdering Facility: [facility] Address: [address] [place] [address] Performed By: #### 5 7021-8 ####[facility] LABCLIA [id number] [place] [address] Platelet mean volume (Bld) [Entitic vol] 11.0 fL Normal 9.0-12.7 [facility] Comment on above: Order Comment: Speci men Type: BLOOD SPECIMENOrdering Facility: [facility] Address: [address] [place] [address] Performed By: #### 5 7021-8 ####[facility] LABIA [id number] [place] [address] Platelets (Bld) [#/Vol] 180 10*3/uL Normal 150-400 [facility] Comment on above: Order Comment: Speci men Type: BLOOD SPECIMENOrdering Facility: [facility] Address: [address] [place] [address] Performed By: #### 5 7021-8 ####[facility] LABCLIA [id number] [place] [address] RBC (Bld) [#/Vol] 4.47 10*6/uL Normal 4.20-6.00 [facility] Comment on above: Order Comment: Speci men Type: BLOOD SPECIMENOrdering Facility: [facility] Address: [address] [place] [address] Performed By: #### 5 7021-8 ####[facility] LABIA [id number] [place] [address] WBC (Bld) [#/Vol] 4.03 10*3/uL Normal 3.70-11.00 [facility] Comment on above: Order Comment: Speci men Type: BLOOD SPECIMENOrdering Facility: [facility] Address: [address] [place] [address] Performed By: #### 5 7021-8 ####[facility] LABCLIA [id number] [place] [address] CNCNPATEDon 09-22-2023 CNCNPATED Normal [facility] CNOVSPon 09-22-2023 CNOVSP Normal [facility] Comprehensive metabolic 2000 panelon 09-22-2023 Albumin [Mass/Vol] 4.4 g/dL 3.9 - 4.9 g/dL [facility] ALP [Catalytic activity/Vol] 47 U/L 38 - 113 U/L [facility] ALT [Catalytic activity/Vol] 19 U/L 10 - 54 U/L [facility] Anion gap [Moles/Vol] 15 mmol/L 9 - 18 mmol/L [facility] AST [Catalytic activity/Vol] 24 U/L 14 - 40 U/L [facility] Bilirubin [Mass/Vol] 0.4 mg/dL 0.2 - 1.3 mg/dL [facility] Calcium [Mass/Vol] 10.1 mg/dL 8.5 - 10.2 mg/dL [facility] Chloride [Moles/Vol] 100 mmol/L 97 - 105 mmol/L [facility] CO2 [Moles/Vol] 25 mmol/L 22 - 30 mmol/L [facility] Creatinine [Mass/Vol] 1.38 mg/dL High 0.73 - 1.22 mg/dL [facility] Estimated Glomerular Filtration Rate 56 mL/min/1.73m Low >=60 mL/min/1.73m [facility] Glucose [Mass/Vol] 107 mg/dL High 74 - 99 mg/dL [facility] Potassium [Moles/Vol] 4.3 mmol/L 3.7 - 5.1 mmol/L [facility] Protein [Mass/Vol] 7.6 g/dL 6.3 - 8.0 g/dL [facility] Sodium [Moles/Vol] 140 mmol/L 136 - 144 mmol/L [facility] Urea nitrogen [Mass/Vol] 30 mg/dL High 9 - 24 mg/dL [facility] Albumin [Mass/Vol] 4.4 g/dL Normal 3.9-4.9 [facility] Comment on above: Order Comment: Speci men Type: BLOOD SPECIMENOrdering Facility: [facility] Address: [address] [place] [address] Performed By: #### 2 4323-8 ####[facility] LABCLIA [id number] [place] [address] ALP [Catalytic activity/Vol] 47 U/L Normal 38-113 [facility] Comment on above: Order Comment: Speci men Type: BLOOD SPECIMENOrdering Facility: [facility] Address: [address] [place] [address] Performed By: #### 2 4323-8 ####[facility] LABCLIA [id number] [place] [address] ALT [Catalytic activity/Vol] 19 U/L Normal 10-54 [facility] Comment on above: Order Comment: Speci men Type: BLOOD SPECIMENOrdering Facility: [facility] Address: [address] [place] [address] Performed By: #### 2 4323-8 ####[facility] LABCLIA [id number] [place] [address] Anion gap [Moles/Vol] 15 mmol/L Normal 9-18 [facility] Comment on above: Order Comment: Speci men Type: BLOOD SPECIMENOrdering Facility: [facility] Address: [address] [place] [address] Performed By: #### 2 4323-8 ####[facility] LABCLIA [id number] [place] [address] AST [Catalytic activity/Vol] 24 U/L Normal 14-40 [facility] Comment on above: Order Comment: Speci men Type: BLOOD SPECIMENOrdering Facility: [facility] Address: [address] [place] [address] Performed By: #### 2 4323-8 ####[facility] LABCLIA [id number] [place] [address] Bilirubin [Mass/Vol] 0.4 mg/dL Normal 0.2-1.3 [facility] Comment on above: Order Comment: Speci men Type: BLOOD SPECIMENOrdering Facility: [facility] Address: [address] [place] [address] Performed By: #### 2 4323-8 ####[facility] LABCLIA [id number] [place] [address] Calcium [Mass/Vol] 10.1 mg/dL Normal 8.5-10.2 [facility] Comment on above: Order Comment: Speci men Type: BLOOD SPECIMENOrdering Facility: [facility] Address: [address] [place] [address] Performed By: #### 2 4323-8 ####[facility] LABCLIA [id number] [place] [address] Chloride [Moles/Vol] 100 mmol/L Normal 97-105 [facility] Comment on above: Order Comment: Speci men Type: BLOOD SPECIMENOrdering Facility: [facility] Address: [address] [place] [address] Performed By: #### 2 4323-8 ####[facility] LABCLIA [id number] [place] [address] CO2 [Moles/Vol] 25 mmol/L Normal 22-30 [facility] Comment on above: Order Comment: Speci men Type: BLOOD SPECIMENOrdering Facility: [facility] Address: [address] [place] [address] Performed By: #### 2 4323-8 ####[facility] LABCLIA [id number] [place] [address] Creatinine [Mass/Vol] 1.38 mg/dL High 0.73-1.22 [facility] Comment on above: Order Comment: Speci men Type: BLOOD SPECIMENOrdering Facility: [facility] Address: [address] [place] [address] Performed By: #### 2 4323-8 ####[facility] LABCLIA [id number] [place] [address] Creatinine and Glomerular filtration rate.predicted panel (S/P/Bld) 56 mL/min/1.73m??? Low >=60 [facility] Comment on above: Order Comment: Speci men Type: BLOOD SPECIMENOrdering Facility: [facility] Address: [address] [place] [address] Result Comment: Landy mated Glomerular Filtration Rate [...] actual GFR. Performed By: #### 2 4323-8 ####[facility] LABCLIA [id number] [place] [address] Glucose [Mass/Vol] 107 mg/dL High 74-99 [facility] Comment on above: Order Comment: Speci men Type: BLOOD SPECIMENOrdering Facility: [facility] Address: [address] [place] [address] Result Comment: The [place] [employer] (ADA) provides guidance for cutoff [...] Standards of Medical Care in Diabetes 2016, [place] [employer]. Diabetes Care. 2016.39(Suppl 1). Performed By: #### 2 4323-8 ####[facility] LABCLIA [id number] [place] [address] Potassium [Moles/Vol] 4.3 mmol/L Normal 3.7-5.1 [facility] Comment on above: Order Comment: Speci men Type: BLOOD SPECIMENOrdering Facility: [facility] Address: [address] [place] [address] Performed By: #### 2 4323-8 ####[facility] LABCLIA [id number] [place] [address] Protein [Mass/Vol] 7.6 g/dL Normal 6.3-8.0 [facility] Comment on above: Order Comment: Speci men Type: BLOOD SPECIMENOrdering Facility: [facility] Address: [address] [place] [address] Performed By: #### 2 4323-8 ####[facility] LABCLIA [id number] [place] [address] Sodium [Moles/Vol] 140 mmol/L Normal 136-144 [facility] Comment on above: Order Comment: Speci men Type: BLOOD SPECIMENOrdering Facility: [facility] Address: [address] [place] [address] Performed By: #### 2 4323-8 ####[facility] LABCLIA [id number] [place] [address] Urea nitrogen [Mass/Vol] 30 mg/dL High 9-24 [facility] Comment on above: Order Comment: Speci men Type: BLOOD SPECIMENOrdering Facility: [facility] Address: [address] [place] [address] Performed By: #### 2 4323-8 ####[facility] LABCLIA [id number] [place] [address] T4/FTI/T4Uon 09-22-2023 FTI 7.1 ug/dL 5.3 - 10.8 ug/dL [facility] T4 [Mass/Vol] 6.1 ug/dL 5.5 - 10.2 ug/dL [facility] T4 uptake [Mass/Vol] 0.86 Low 0.91 - 1.19 [facility] FTI 7.1 ug/dL Normal 5.3-10.8 [facility] Comment on above: Order Comment: Speci men Type: BLOOD SPECIMENOrdering Facility: [facility] Address: [address] [place] [address] Performed By: #### 3 016-3, T4FTI ####[facility] LABCLIA [id number] [place] [address] [place] T4 [Mass/Vol] 6.1 ug/dL Normal 5.5-10.2 [facility] Comment on above: Order Comment: Speci men Type: BLOOD SPECIMENOrdering Facility: [facility] Address: [address] [place] [address] Performed By: #### 3 016-3, T4FTI ####[facility] LABCLIA [id number] [place] [address] [place] T4 uptake [Mass/Vol] 0.86 Low 0.91-1.19 [facility] Comment on above: Order Comment: Speci men Type: BLOOD SPECIMENOrdering Facility: [facility] Address: [address] [place] [address] Performed By: #### 3 016-3, T4FTI ####[facility] LABCLIA [id number] [place] [address] [place] TSH BLDon 09-22-2023 TSH Qn 14.500 m[IU]/L High 0.270 - 4.200 mIU/L [facility] TSH SerPl-aCncon 09-22-2023 TSH Qn 14.500 m[IU]/L High 0.270-4.200 [facility] Comment on above: Order Comment: Speci men Type: BLOOD SPECIMENOrdering Facility: [facility] Address: [address] [place] [address] Performed By: #### 3 016-3, T4FTI ####[facility] LABCLIA [id number] [address] [address] [place] NM PET/CT SKULL-THIGH SUBQon 09-15-2023 NM PET/CT SKULL-THIGH SUBQ Normal [facility] Physician Referralon 024 Physician Referral [id number] #1.00TIFF Normal [facility] Ambulatory Visit Summaryon 0 09-02-2023 Ambulatory Visit [...] 8:40 AM EDT With: Enrique Austin Where: [facility] Normal [address] [place] [address]- \.br\ Medications\.br\ What How Much When Why Instructions\.br\ New predniSONE (predniSONE 10 mg Tab) 1 Dose Separtor By Mouth As Directed Rash BMI 21.0-21.9, adult Former smoker Take 5 tabs by mouth daily x3 days, 4 daily x3 days, 3 daily x3 days, 2 daily x3 days, then 1 tab daily x3 days. Pickup at [facility]\.br\ Unchanged alprazolam (alprazolam 0.25 mg Tab) [...] 90 tab(s), 0 Refill(s) \.br\ Pharmacy Information\.br\ [facility]: [address] [place], [place] [id number] [phone]\.br\ Allergies\.br\ No Known Allergies\.br\ Problems\.br\ Ongoing - [...] choosing us for your care.\.br\ \.br\ [facility] Family Medicine Office/Clini c Noteon 09-02-2023 [...] spread this week. pt found creams that lining stamper ordered for him and applied it last [...] q12hr, # 20 cap(s), Refills(s) 0, Pharmacy: [facility], 169.5, cm, 08/20/23 11:52:00 EST, Height/Length Dosing, 63.1, kg, 08/20/23 11:52:00 EST, Weight Dosing predniSONE, 0 = 1 -, Oral, As Directed, Take 5 tabs by mouth daily x3 days, 4 daily x3 days, 3 daily x3 days, 2 daily x3 days, then 1 tab daily x3 days., # 45 tab(s), Refills(s) 0, Pharmacy: [facility], 169.5, cm, 09/02/23 11:42:00 EST, Height/Anuj... triamcinolone topical, 1 duong, Topical, BID, 20 gram, Refill(s) 0, [facility], 169.5, cm, 08/20/23 11:52:00 EST, Height/Length Dosing, 63.1, kg, 08/20/23 11:52:00 EST, Weight Dosing [facility] External Ambulatory Referral 2. BMI 21.0-21.9, adult (Z68.21: Body mass index [BMI] 21.0-21.9, adult) BMI education complete Ordered: cephalexin, 500 mg = 1 cap(s), Oral, q12hr, # 20 cap(s), Refills(s) 0, Pharmacy: [facility], 169.5, cm, 08/20/23 11:52:00 EST, Height/Length Dosing, 63.1, kg, 08/20/23 11:52:00 EST, Weight Dosing predniSONE, 0 = 1 -, Oral, As Directed, Take 5 tabs by mouth daily x3 days, 4 daily x3 days, 3 daily x3 days, 2 daily x3 days, then 1 tab daily x3 days., # 45 tab(s), Refills(s) 0, Pharmacy: [facility], 169.5, cm, 09/02/23 11:42:00 EST, Height/Anuj... triamcinolone topical, 1 duong, Topical, BID, 20 gram, Refill(s) 0, [facility], 169.5, cm, 08/20/23 11:52:00 EST, Height/Length Dosing, 63.1, kg, 08/20/23 11:52:00 EST, Weight Dosing [facility] External Ambulatory Referral 3. Former smoker (Z87.891: Personal history of nicotine dependence) continue not smoking Ordered: predniSONE, 0 = 1 -, Oral, As Directed, Take 5 tabs by mouth daily x3 days, 4 daily x3 days, 3 daily x3 days, 2 daily x3 days, then 1 tab daily x3 days., # 45 tab(s), Refills(s) 0, Pharmacy: [facility], 169.5, cm, 09/02/23 11:42:00 EST, Height/Anuj... [facility] External Ambulatory Referral Orders: alprazolam, 0.25 mg = 1 tab(s), Oral, TID, PRN for anxiety, # 60 tab(s), Refills(s) 0, Pharmacy: [facility], 169.6, cm, 07/23/23 10:23:00 EST, Height/Length Dosing, 63, kg, 07/23/23 10:23:00 EST, Weight Dosing methylPREDNISolone, = 1 packet(s), Oral, Once, as directed on package labeling, # 21 tab(s), Refills(s) 0, Pharmacy: [facility], 169.6, cm, 07/23/23 10:23:00 EST, Height/Length Dosing, 63, kg, 07/23/23 10:23:00 EST, Weight Dosing Follow-up No qualifying data available Problem List/Past Medical History Ongoing Anxiety CAD (coronary artery disease) Chest congestion Emphysema lung Fluid level behind tympanic membrane of both ears Insomnia Lung cancer Rash Historical No qualifying data Procedure/Surgical History CABG (Coronary artery bypass grafting) planned (more content not included)... Normal [facility] Comment on above: Result Comment: Elec tronically Signed By: Enrique Austin\.br\Date and Time Signed: 09/02/23 13:02 EST CNPNon 08-26-2023 CNPN Normal [facility] CBC W Auto Differential pane l (Bld)on 08-25-2023 Basophils (Bld) [#/Vol] 0.03 10*3/uL Normal <0.11 [facility] Comment on above: Order Comment: Speci men Type: BLOOD SPECIMENOrdering Facility: [facility] Address: [address] [place] [address] Performed By: #### 5 7021-8 ####[facility] LABCLIA [id number] [place] [address] Basophils/100 WBC (Bld) 0.6 % Normal [facility] Comment on above: Order Comment: Speci men Type: BLOOD SPECIMENOrdering Facility: [facility] Address: [address] [place] [address] Performed By: #### 5 7021-8 ####[facility] LABCLIA [id number] [place] [address] Differential cell count method Nom (Bld) Auto Normal [facility] Comment on above: Order Comment: Speci men Type: BLOOD SPECIMENOrdering Facility: [facility] Address: [address] [place] [address] Performed By: #### 5 7021-8 ####[facility] LABCLIA [id number] [place] [address] Eosinophils (Bld) [#/Vol] 0.16 10*3/uL Normal <0.46 [facility] Comment on above: Order Comment: Speci men Type: BLOOD SPECIMENOrdering Facility: [facility] Address: [address] [place] [address] Performed By: #### 5 7021-8 ####[facility] LABCLIA [id number] [place] [address] Eosinophils/100 WBC (Bld) 3.1 % Normal [facility] Comment on above: Order Comment: Speci men Type: BLOOD SPECIMENOrdering Facility: [facility] [facility] Address: [address] [place] [address] Performed By: #### 5 7021-8 ####[facility] LABCLIA [id number] [place] [address] Erythrocyte distribution width (RBC) [Ratio] 14.5 % Normal 11.5-15.0 [facility] Comment on above: Order Comment: Speci men Type: BLOOD SPECIMENOrdering Facility: [facility] Address: [address] [place] [address] Performed By: #### 5 7021-8 ####[facility] LABCLIA [id number] [place] [address] Hematocrit (Bld) [Volume fraction] 39.4 % Normal 39.0-51.0 [facility] Comment on above: Order Comment: Speci men Type: BLOOD SPECIMENOrdering Facility: [facility] Address: [address] [place] [address] Performed By: #### 5 7021-8 ####[facility] LABCLIA [id number] [place] [address] Hemoglobin (Bld) [Mass/Vol] 13.2 g/dL Normal 13.0-17.0 [facility] Comment on above: Order Comment: Speci men Type: BLOOD SPECIMENOrdering Facility: [facility] Address: [address] [place] [address] Performed By: #### 5 7021-8 ####[facility] LABCLIA [id number] [place] [address] Immature granulocytes (Bld) [#/Vol] 0.03 10*3/uL Normal <0.10 [facility] Comment on above: Order Comment: Speci men Type: BLOOD SPECIMENOrdering Facility: [facility] Address: [address] [place] [address] Performed By: #### 5 7021-8 ####[facility] LABCLIA [id number] [place] [address] Immature granulocytes/100 WBC (Bld) 0.6 % Normal [facility] Comment on above: Order Comment: Speci men Type: BLOOD SPECIMENOrdering Facility: [facility] Address: [address] [place], [place] [address] Performed By: #### 5 7021-8 ####[facility] LABCLIA [id number] [place] [address] Lymphocytes (Bld) [#/Vol] 1.08 10*3/uL Normal 1.00-4.00 [facility] Comment on above: Order Comment: Speci men Type: BLOOD SPECIMENOrdering Facility: [facility] Address: [address] [place] [address] Performed By: #### 5 7021-8 ####[facility] LABCLIA [id number] [place] [address] Lymphocytes/100 WBC (Bld) 20.8 % Normal [facility] Comment on above: Order Comment: Speci men Type: BLOOD SPECIMENOrdering Facility: [facility] Address: [address] [place] [address] Performed By: #### 5 7021-8 ####[facility] LABCLIA [id number] [place] [address] MCH (RBC) [Entitic mass] 30.1 pg Normal 26.0-34.0 [facility] Comment on above: Order Comment: Speci men Type: BLOOD SPECIMENOrdering Facility: [facility] Address: [address] [place] [address] Performed By: #### 5 7021-8 ####[facility] LABCLIA [id number] [place] [address] MCHC (RBC) [Mass/Vol] 33.5 g/dL Normal 30.5-36.0 [facility] Comment on above: Order Comment: Speci men Type: BLOOD SPECIMENOrdering Facility: [facility] Address: [address] [place] [address] Performed By: #### 5 7021-8 ####[facility] LABCLIA [id number] [place] [address] MCV (RBC) [Entitic vol] 90.0 fL Normal 80.0-100.0 [facility] Comment on above: Order Comment: Speci men Type: BLOOD SPECIMENOrdering Facility: [facility] Address: [address] [place] [address] Performed By: #### 5 7021-8 ####[facility] LABCLIA [id number] [place] [address] Monocytes (Bld) [#/Vol] 0.58 10*3/uL Normal <0.87 [facility] Comment on above: Order Comment: Speci men Type: BLOOD SPECIMENOrdering Facility: [facility] Address: [address] [place] [address] Performed By: #### 5 7021-8 ####[facility] LABCLIA [id number] [place] [address] Monocytes/100 WBC (Bld) 11.2 % Normal [facility] Comment on above: Order Comment: Speci men Type: BLOOD SPECIMENOrdering Facility: [facility] Address: [address] [place] [address] Performed By: #### 5 7021-8 ####[facility] LABCLIA [id number] [place] [address] Neutrophils (Bld) [#/Vol] 3.31 10*3/uL Normal 1.45-7.50 [facility] Comment on above: Order Comment: Speci men Type: BLOOD SPECIMENOrdering Facility: [facility] Address: [address] [place] [address] Performed By: #### 5 7021-8 ####[facility] LABCLIA [id number] [place] [address] Neutrophils/100 WBC (Bld) 63.7 % Normal [facility] Comment on above: Order Comment: Speci men Type: BLOOD SPECIMENOrdering Facility: [facility] Address: [address] [place] [address] Performed By: #### 5 7021-8 ####[facility] LABCLIA [id number] [place] [address] Nucleated RBC (Bld) [#/Vol] 10*3/uL Normal <0.01 [facility] Comment on above: Order Comment: Speci men Type: BLOOD SPECIMENOrdering Facility: [facility] Address: [address] [place] [address] Performed By: #### 5 7021-8 ####[facility] LABCLIA [id number] [place] [address] Nucleated RBC/100 WBC (Bld) [Ratio] 0.0 /100 WBC Normal [facility] Comment on above: Order Comment: Speci men Type: BLOOD SPECIMENOrdering Facility: [facility] Address: [address] [place] [address] Performed By: #### 5 7021-8 ####[facility] LABCLIA [id number] [place] [address] Platelet mean volume (Bld) [Entitic vol] 11.2 fL Normal 9.0-12.7 [facility] Comment on above: Order Comment: Speci men Type: BLOOD SPECIMENOrdering Facility: [facility] Address: [address] [place] [address] Performed By: #### 5 7021-8 ####[facility] LABCLIA [id number] [place] [address] Platelets (Bld) [#/Vol] 206 10*3/uL Normal 150-400 [facility] Comment on above: Order Comment: Speci men Type: BLOOD SPECIMENOrdering Facility: [facility] Address: [address] [place] [address] Performed By: #### 5 7021-8 ####[facility] LABCLIA [id number] [place] [address] RBC (Bld) [#/Vol] 4.38 10*6/uL Normal 4.20-6.00 [facility] Comment on above: Order Comment: Speci men Type: BLOOD SPECIMENOrdering Facility: [facility] Address: [address] [place] [address] Performed By: #### 5 7021-8 ####[facility] LABIA [id number] [place] [address] WBC (Bld) [#/Vol] 5.19 10*3/uL Normal 3.70-11.00 [facility] Comment on above: Order Comment: Speci men Type: BLOOD SPECIMENOrdering Facility: [facility] Address: [address] [place] [address] Performed By: #### 5 7021-8 ####[facility] LABIA [id number] [place] [address] CNOVSPon 08-25-2023 CNOVSP Normal [facility] metabolic 2000 panelon 08-25-2023 Albumin [Mass/Vol] 4.4 g/dL Normal 3.9-4.9 [facility] Comment on above: Order Comment: Speci men Type: BLOOD SPECIMENOrdering Facility: [facility] Address: [address] [place] [address] Performed By: #### 2 4323-8 ####[facility] LABIA [id number] [place] [address] ALP [Catalytic activity/Vol] 70 U/L Normal 38-113 [facility] Comment on above: Order Comment: Speci men Type: BLOOD SPECIMENOrdering Facility: [facility] Address: [address] [place] [address] Performed By: #### 2 4323-8 ####[facility] LABCLIA [id number] [place] [address] ALT [Catalytic activity/Vol] 25 U/L Normal 10-54 [facility] Comment on above: Order Comment: Speci men Type: BLOOD SPECIMENOrdering Facility: [facility] Address: [address] [place] [address] Performed By: #### 2 4323-8 ####[facility] LABCLIA [id number] [place] [address] Anion gap [Moles/Vol] 13 mmol/L Normal 9-18 [facility] Comment on above: Order Comment: Speci men Type: BLOOD SPECIMENOrdering Facility: [facility] Address: [address] [place] [address] Performed By: #### 2 4323-8 ####[facility] LABCLIA [id number] [place] [address] AST [Catalytic activity/Vol] 33 U/L Normal 14-40 [facility] Comment on above: Order Comment: Speci men Type: BLOOD SPECIMENOrdering Facility: [facility] Address: [address] [place] [address] Performed By: #### 2 4323-8 ####[facility] LABCLIA [id number] [place] [address] Bilirubin [Mass/Vol] 0.3 mg/dL Normal 0.2-1.3 [facility] Comment on above: Order Comment: Speci men Type: BLOOD SPECIMENOrdering Facility: [facility] Address: [address] [place] [address] Performed By: #### 2 4323-8 ####[facility] LABCLIA [id number] [place] [address] Calcium [Mass/Vol] 10.2 mg/dL Normal 8.5-10.2 [facility] Comment on above: Order Comment: Speci men Type: BLOOD SPECIMENOrdering Facility: [facility] Address: [address] [place] [address] Performed By: #### 2 4323-8 ####[facility] LABCLIA [id number] [place] [address] Chloride [Moles/Vol] 102 mmol/L Normal 97-105 [facility] Comment on above: Order Comment: Speci men Type: BLOOD SPECIMENOrdering Facility: [facility] Address: [address] [place], [place] [address] Performed By: #### 2 4323-8 ####[facility] LABCLIA [id number] [place] [address] CO2 [Moles/Vol] 25 mmol/L Normal 22-30 [facility] Comment on above: Order Comment: Speci men Type: BLOOD SPECIMENOrdering Facility: [facility] Address: [address] [place] [address] Performed By: #### 2 4323-8 ####[facility] LABCLIA [id number] [place] [address] Creatinine [Mass/Vol] 1.19 mg/dL Normal 0.73-1.22 [facility] Comment on above: Order Comment: Speci men Type: BLOOD SPECIMENOrdering Facility: [facility] Address: [address] [place] [address] Performed By: #### 2 4323-8 ####[facility] LABCLIA [id number] [place] [address] Creatinine and Glomerular filtration rate.predicted panel (S/P/Bld) 67 mL/min/1.73m??? Normal >=60 [facility] Comment on above: Order Comment: Speci men Type: BLOOD SPECIMENOrdering Facility: [facility] Address: [address] [place] [address] Result Comment: Landy mated Glomerular Filtration Rate [...] actual GFR. Performed By: #### 2 4323-8 ####[facility] LABCLIA [id number] [place] [address] Glucose [Mass/Vol] 99 mg/dL Normal 74-99 [facility] Comment on above: Order Comment: Speci men Type: BLOOD SPECIMENOrdering Facility: [facility] Address: [address] [place] [address] Result Comment: The [place] [employer] (ADA) provides guidance for cutoff [...] Standards of Medical Care in Diabetes 2016, [place] [employer]. Diabetes Care. 2016.39(Suppl 1). Performed By: #### 2 4323-8 ####[facility] LABCLIA [id number] [place] [address] Potassium [Moles/Vol] 3.8 mmol/L Normal 3.7-5.1 [facility] Comment on above: Order Comment: Josei men Type: BLOOD SPECIMENOrdering Facility: [facility] Address: [address] [place] [address] Performed By: #### 2 4323-8 ####[facility] LABCLIA [id number] [place] [address] Protein [Mass/Vol] 7.9 g/dL Normal 6.3-8.0 [facility] Comment on above: Order Comment: Speci men Type: BLOOD SPECIMENOrdering Facility: [facility] Address: [address] [place] [address] Performed By: #### 2 4323-8 ####[facility] LABCLIA [id number] [place] [address] Sodium [Moles/Vol] 140 mmol/L Normal 136-144 [facility] Comment on above: Order Comment: Speci men Type: BLOOD SPECIMENOrdering Facility: [facility] Address: [address] [place] [address] Performed By: #### 2 4323-8 ####[facility] LABCLIA [id number] [place] [address] Urea nitrogen [Mass/Vol] 33 mg/dL High 9-24 [facility] Comment on above: Order Comment: Speci men Type: BLOOD SPECIMENOrdering Facility: [facility] Address: [address] [place] [address] Performed By: #### 2 4323-8 ####[facility] LABCLIA [id number] [place] [address] T4/FTI/T4Uon 08-25-2023 FTI 2.0 ug/dL Low 5.3-10.8 [facility] Comment on above: Order Comment: Speci men Type: BLOOD SPECIMENOrdering Facility: [facility] Address: [address] [place] [address] Performed By: #### 3 016-3, T4FTI ####[facility] LABCLIA [id number] [place] [address] [place] T4 [Mass/Vol] 2.3 ug/dL Low 5.5-10.2 [facility] Comment on above: Order Comment: Speci men Type: BLOOD SPECIMENOrdering Facility: [facility] Address: [address] [place] [address] Performed By: #### 3 016-3, T4FTI ####[facility] LABCLIA [id number] [place] [address] [place] T4 uptake [Mass/Vol] 1.14 Normal 0.91-1.19 [facility] Comment on above: Order Comment: Speci men Type: BLOOD SPECIMENOrdering Facility: [facility] Address: [address] [place] [address] Performed By: #### 3 016-3, T4FTI ####[facility] LABCLIA [id number] [place] [id number] [place] TSH SerPl-aCncon 08-25-2023 TSH Qn 109.000 m[IU]/L High 0.270-4.200 [facility] Comment on above: Order Comment: Speci men Type: BLOOD SPECIMENOrdering Facility: [facility] Address: [address] [place] [address] Performed By: #### 3 016-3, T4FTI ####[facility] LABCLIA [id number] [place] [id number] [place] Ambulatory Visit Summaryon 0 [...] 8:40 AM EDT With: Enrique Austin Where: [facility] [address] [place] [address]- \.br\ Medications\.br\ What How Much When Why Instructions\.br\ New cephalexin (cephalexin 500 mg Cap) 1 Capsules By Mouth Every 12 hours Rash Lung cancer BMI 21.0-21.9, adult Pickup at [facility]\.br\ New sotorasib (Lumakras 320 mg oral tablet) 90 tab(s), 0 Refill(s) \.br\ New triamcinolone topical (triamcinolone Top 0.5% Crm) 1 Application Topical 2 times a day Rash Lung cancer BMI 21.0-21.9, adult Pickup at [facility]\.br\ Unchanged alprazolam (alprazolam 0.25 mg [...] Tablets By Mouth Every day\.br\ Pharmacy Information\.br\ [facility]: [address] [place] [id number] [phone]\.br\ Allergies\.br\ No Known Allergies\.br\ Problems\.br\ Ongoing - [...] for choosing us for your care.\.br\ \.br\ [facility] Consenton 08-20-2023 Consent [id number] #1.00TIFF Normal [facility] Medicine Office/Clini c Noteon 08-20-2023 [facility] Medicine Office/Clinic Note Chief Complaint rash on [...] q12hr, # 20 cap(s), Refills(s) 0, Pharmacy: [facility], 169.5, cm, 08/20/23 11:52:00 EST, Height/Length Dosing, 63.1, kg, 08/20/23 11:52:00 EST, Weight Dosing triamcinolone, 60 mg = 1.5 mL, Injection, IntraARTICULAR, Once, Stop date 08/20/23 12:17:00 EST, Routine, Start date 08/20/23 12:17:00 EST, 08/20/23 12:17:00 EST triamcinolone topical, 1 duong, Topical, BID, 20 gram, Refill(s) 0, [facility], 169.5, cm, 08/20/23 11:52:00 EST, Height/Length Dosing, 63.1, kg, 08/20/23 11:52:00 EST, Weight Dosing 2. Lung cancer (C34.90: Malignant neoplasm of unspecified part of unspecified bronchus or lung) pt still taking oral treatment Ordered: cephalexin, 500 mg = 1 cap(s), Oral, q12hr, # 20 cap(s), Refills(s) 0, Pharmacy: [facility], 169.5, cm, 08/20/23 11:52:00 EST, Height/Length Dosing, 63.1, kg, 08/20/23 11:52:00 EST, Weight Dosing triamcinolone topical, 1 duong, Topical, BID, 20 gram, Refill(s) 0, [facility], 169.5, cm, 08/20/23 11:52:00 EST, Height/Length Dosing, 63.1, kg, 08/20/23 11:52:00 EST, Weight Dosing 3. BMI 21.0-21.9, adult (Z68.21: Body mass index [BMI] 21.0-21.9, adult) BMI education complete Ordered: cephalexin, 500 mg = 1 cap(s), Oral, q12hr, # 20 cap(s), Refills(s) 0, Pharmacy: [facility], 169.5, cm, 08/20/23 11:52:00 EST, Height/Length Dosing, 63.1, kg, 08/20/23 11:52:00 EST, Weight Dosing triamcinolone topical, 1 duong, Topical, BID, 20 gram, Refill(s) 0, [facility], 169.5, cm, 08/20/23 11:52:00 EST, Height/Length [...] malignant neoplas (more content not included)... Normal [facility] Comment on above: Result Comment: Elec tronically Signed By: Enrique Austin\.miladys\Date and Time Signed: 08/20/23 12:47 EST CNOVon 08-15-2023 CNOV Normal [facility] CNPNon 08-11-2023 CNPN Normal [facility] CNOVon 08-08-2023 CNOV Normal [facility] CBC W Auto Differential pane l (Bld)on 07-28-2023 Basophils (Bld) [#/Vol] 0.03 10*3/uL Normal <0.11 [facility] Comment on above: Order Comment: Speci men Type: BLOOD SPECIMENOrdering Facility: [facility] Address: [address] [place] [address] Performed By: #### 5 7021-8 ####[facility] LABCLIA [id number] [place] [address] Basophils/100 WBC (Bld) 0.4 % Normal [facility] Comment on above: Order Comment: Speci men Type: BLOOD SPECIMENOrdering Facility: [facility] Address: [address] [place] [address] Performed By: #### 5 7021-8 ####[facility] LABCLIA [id number] [place] [address] Differential cell count method Nom (Bld) Auto Normal [facility] Comment on above: Order Comment: Speci men Type: BLOOD SPECIMENOrdering Facility: [facility] Address: [address] [place] [address] Performed By: #### 5 7021-8 ####[facility] LABCLIA [id number] [place] [address] Eosinophils (Bld) [#/Vol] 0.18 10*3/uL Normal <0.46 [facility] Comment on above: Order Comment: Speci men Type: BLOOD SPECIMENOrdering Facility: [facility] Address: [address] [place] [address] Performed By: #### 5 7021-8 ####[facility] LABCLIA [id number] [place] [address] Eosinophils/100 WBC (Bld) 2.6 % Normal [facility] Comment on above: Order Comment: Speci men Type: BLOOD SPECIMENOrdering Facility: [facility] Address: [address] [place] [address] Performed By: #### 5 7021-8 ####[facility] LABCLIA [id number] [place] [address] Erythrocyte distribution width (RBC) [Ratio] 13.2 % Normal 11.5-15.0 [facility] Comment on above: Order Comment: Speci men Type: BLOOD SPECIMENOrdering Facility: [facility] Address: [address] [place] [address] Performed By: #### 5 7021-8 ####[facility] LABCLIA [id number] [place] [address] Hematocrit (Bld) [Volume fraction] 35.5 % Low 39.0-51.0 [facility] Comment on above: Order Comment: Speci men Type: BLOOD SPECIMENOrdering Facility: [facility] Address: [address] [place] [address] Performed By: #### 5 7021-8 ####[facility] LABCLIA [id number] [place] [address] Hemoglobin (Bld) [Mass/Vol] 12.0 g/dL Low 13.0-17.0 [facility] Comment on above: Order Comment: Speci men Type: BLOOD SPECIMENOrdering Facility: [facility] Address: [address] [place] [address] Performed By: #### 5 7021-8 ####[facility] LABCLIA [id number] [place] [address] Immature granulocytes (Bld) [#/Vol] 0.04 10*3/uL Normal <0.10 [facility] Comment on above: Order Comment: Speci men Type: BLOOD SPECIMENOrdering Facility: [facility] Address: [address] [place] [address] Performed By: #### 5 7021-8 ####[facility] LABCLIA [id number] [place] [address] Immature granulocytes/100 WBC (Bld) 0.6 % Normal [facility] Comment on above: Order Comment: Speci men Type: BLOOD SPECIMENOrdering Facility: [facility] Address: [address] [place] [address] Performed By: #### 5 7021-8 ####[facility] LABCLIA [id number] [place] [address] Lymphocytes (Bld) [#/Vol] 1.31 10*3/uL Normal 1.00-4.00 [facility] Comment on above: Order Comment: Speci men Type: BLOOD SPECIMENOrdering Facility: [facility] Address: [address] [place] [address] Performed By: #### 5 7021-8 ####[facility] LABCLIA [id number] [place] [address] Lymphocytes/100 WBC (Bld) 19.2 % Normal [facility] Comment on above: Order Comment: Speci men Type: BLOOD SPECIMENOrdering Facility: [facility] Address: [address] [place] [address] Performed By: #### 5 7021-8 ####[facility] LABCLIA [id number] [place] [address] MCH (RBC) [Entitic mass] 30.4 pg Normal 26.0-34.0 [facility] Comment on above: Order Comment: Speci men Type: BLOOD SPECIMENOrdering Facility: [facility] Address: [address] [place] [address] Performed By: #### 5 7021-8 ####[facility] LABCLIA [id number] [place] [address] MCHC (RBC) [Mass/Vol] 33.8 g/dL Normal 30.5-36.0 [facility] Comment on above: Order Comment: Speci men Type: BLOOD SPECIMENOrdering Facility: [facility] Address: [address] [place] [address] Performed By: #### 5 7021-8 ####[facility] LABCLIA [id number] [place] [address] MCV (RBC) [Entitic vol] 89.9 fL Normal 80.0-100.0 [facility] Comment on above: Order Comment: Speci men Type: BLOOD SPECIMENOrdering Facility: [facility] Address: [address] [place] [address] Performed By: #### 5 7021-8 ####[facility] LABCLIA [id number] [place] [address] Monocytes (Bld) [#/Vol] 0.77 10*3/uL Normal <0.87 [facility] [facility] Comment on above: Order Comment: Speci men Type: BLOOD SPECIMENOrdering Facility: [facility] Address: [address] [place] [address] Performed By: #### 5 7021-8 ####[facility] LABCLIA [id number] [place] [address] Monocytes/100 WBC (Bld) 11.3 % Normal [facility] Comment on above: Order Comment: Speci men Type: BLOOD SPECIMENOrdering Facility: [facility] Address: [address] [place] [address] Performed By: #### 5 7021-8 ####[facility] LABCLIA [id number] [place] [address] Neutrophils (Bld) [#/Vol] 4.49 10*3/uL Normal 1.45-7.50 [facility] Comment on above: Order Comment: Speci men Type: BLOOD SPECIMENOrdering Facility: [facility] Address: [address] [place] [address] Performed By: #### 5 7021-8 ####[facility] LABCLIA [id number] [place] [address] Neutrophils/100 WBC (Bld) 65.9 % Normal [facility] Comment on above: Order Comment: Speci men Type: BLOOD SPECIMENOrdering Facility: [facility] Address: [address] [place] [address] Performed By: #### 5 7021-8 ####[facility] LABCLIA [id number] [place] [address] Nucleated RBC (Bld) [#/Vol] 10*3/uL Normal <0.01 [facility] Comment on above: Order Comment: Speci men Type: BLOOD SPECIMENOrdering Facility: [facility] Address: [address] [place] [address] Performed By: #### 5 7021-8 ####[facility] LABCLIA [id number] [place] [address] Nucleated RBC/100 WBC (Bld) [Ratio] 0.0 /100 WBC Normal [facility] Comment on above: Order Comment: Speci men Type: BLOOD SPECIMENOrdering Facility: [facility] Address: [address] [place] [address] Performed By: #### 5 7021-8 ####[facility] LABCLIA [id number] [place] [address] Platelet mean volume (Bld) [Entitic vol] 10.5 fL Normal 9.0-12.7 [facility] Comment on above: Order Comment: Speci men Type: BLOOD SPECIMENOrdering Facility: [facility] Address: [address] [place] [address] Performed By: #### 5 7021-8 ####[facility] LABCLIA [id number] [place] [address] Platelets (Bld) [#/Vol] 265 10*3/uL Normal 150-400 [facility] Comment on above: Order Comment: Speci men Type: BLOOD SPECIMENOrdering Facility: [facility] Address: [address] [place] [address] Performed By: #### 5 7021-8 ####[facility] LABCLIA [id number] [place] [address] RBC (Bld) [#/Vol] 3.95 10*6/uL Low 4.20-6.00 [facility] Comment on above: Order Comment: Speci men Type: BLOOD SPECIMENOrdering Facility: [facility] Address: [address] [place] [address] Performed By: #### 5 7021-8 ####[facility] LABIA [id number] [place] [address] WBC (Bld) [#/Vol] 6.82 10*3/uL Normal 3.70-11.00 [facility] Comment on above: Order Comment: Speci men Type: BLOOD SPECIMENOrdering Facility: [facility] Address: [address] [place] [address] Performed By: #### 5 7021-8 ####[facility] LABIA [id number] [place] [address] CNOVSPon 07-28-2023 CNOVSP Normal [facility] Ambulatory Visit Summaryon 0 07-23-2023 Ambulatory Visit [...] 9:00 AM EDT With: Enrique Austin Where: [facility] [place] Normal [address] [id number]- \.br\ Medications\.br\ What How Much When Instructions\.br\ [...] for choosing us for your care.\.br\ \.br\ [facility] Family Medicine Office/Clini c Noteon 07-23-2023 Family Medicine [...] Daily, 16 gram, Refill(s) 0, each nostril, [facility], 169.6, cm, 03/17/23 10:54:00 EDT, Height/Length Dosing, 62, kg, 03/17/23 10:54:00 EDT, Weight Dosing 2. Chest congestion (R09.89: Other specified symptoms and signs involving the circulatory and respiratory systems) pt having chest congestion body aches and coughing up yellow phlegm. 3. Anxiety (F41.9: Anxiety disorder, unspecified) meds refilled Ordered: fluticasone nasal, 2 spray(s), Nasal, Daily, 16 gram, Refill(s) 0, each nostril, [facility], 169.6, cm, 03/17/23 10:54:00 EDT, Height/Length Dosing, 62, kg, 03/17/23 10:54:00 EDT, Weight Dosing 4. BMI 21.0-21.9, adult (Z68.21: Body mass index [BMI] 21.0-21.9, adult) BMI education complete Ordered: fluticasone nasal, 2 spray(s), Nasal, Daily, 16 gram, Refill(s) 0, each nostril, [facility], 169.6, cm, 03/17/23 10:54:00 EDT, Height/Length Dosing, 62, kg, 03/17/23 10:54:00 EDT, Weight Dosing 5. Former smoker (Z87.891: Personal history of nicotine dependence) continue not smoking Ordered: fluticasone nasal, 2 spray(s), Nasal, Daily, 16 gram, Refill(s) 0, each nostril, [facility], 169.6, cm, 03/17/23 10:54:00 EDT, Height/Length Dosing, 62, kg, 03/17/23 10:54:00 EDT, Weight Dosing Orders: alprazolam, 0.25 mg = 1 tab(s), Oral, TID, PRN for anxiety, # 60 tab(s), Refills(s) 0, Pharmacy: [facility], 169.6, cm, 07/23/23 10:23:00 EST, Height/Length Dosing, 63, kg, 07/23/23 10:23:00 EST, Weight Dosing alprazolam, 0.25 mg = 1 tab(s), Oral, TID, PRN for anxiety, # 30 tab(s), Refills(s) 1, Pharmacy: [facility], 169.6, cm, 04/16/23 10:21:00 EDT, Height/Length Dosing, 63.8, kg, 04/16/23 10:30:00 EDT, Weight Dosing azithromycin, = 1 packet(s), Oral, As Directed, as directed on package labeling, X 5 day(s), # 6 tab(s), Refills(s) 0, Pharmacy: [facility], 169.6, cm, 07/23/23 10:23:00 EST, Height/Length Dosing, 63, kg, 07/23/23 10:23:00 EST, Weight Dosing methylPREDNISolone, = 1 packet(s), Oral, Once, as directed on package labeling, # 21 tab(s), Refills(s) 0, Pharmacy: [facility], 169.6, cm, 07/23/23 10:23:00 EST, Height/Length [...] 1 tab(s) (more content not included)... Normal [facility] Comment on above: Result Comment: Elec tronically Signed By: Cate MENARD, Enrique Beatty\.br\Date and Time Signed: 01/03/24 10:41 EST [facility] Medication Consenton 023 Medication Consent [id number] 8#1.00TIFF Normal [facility] Ambulatory Visit Summaryon 1 09-09-2022 Ambulatory Visit [...] mg Tab) fluticasone nasal (Flonase 0.05 mg/inh [place]) isosorbide mononitrate (isosorbide mononitrate 30 mg ER [...] 9:00 AM EDT With: Enrique Austin Where: [facility] Normal [address] [phone]- \.br\ Medications\.br\ What How Much When Why [...] Unchanged fluticasone nasal (Flonase 0.05 mg/ inh [place]) 2 Sprays Nasal Inhalation Every day Rash [...] choosing us for your care.\.br\ \.br\ [facility] Family Medicine Office/Clini c Noteon [...] did get something rxed for it at [facility] ( amoxicillin) History of Present Illness [...] 1 tab(s), Oral, Daily Flonase 0.05 mg/inh [place], 2 spray(s), Nasal, Daily, Not taking isosorbide [...] (COVID-19) mRNA-1273 vaccine 11/15/2020 Recorded Normal [place] [facility] Comment on above: Result Comment: Elec tronically Signed By: Enrique Austin\.br\Date and Time Signed: 07/09/23 10:27 EST CBC W Auto Differential pane l (Bld)on 06-30-2023 Basophils (Bld) [#/Vol] 0.03 10*3/uL Normal <0.11 [facility] Comment on above: Order Comment: Speci men Type: BLOOD SPECIMENOrdering Facility: [facility] Address: [address] [place] [address] Performed By: #### 5 7021-8 ####[facility] LABCLIA [id number] [place] [address] Basophils/100 WBC (Bld) 0.5 % Normal [facility] Comment on above: Order Comment: Speci men Type: BLOOD SPECIMENOrdering Facility: [facility] Address: [address] [place] [address] Performed By: #### 5 7021-8 ####[facility] LABCLIA [id number] [place] [address] Differential cell count method Nom (Bld) Auto Normal [facility] Comment on above: Order Comment: Speci men Type: BLOOD SPECIMENOrdering Facility: [facility] Address: [address] [place] [address] Performed By: #### 5 7021-8 ####[facility] LABCLIA [id number] [place] [address] Eosinophils (Bld) [#/Vol] 0.27 10*3/uL Normal <0.46 [facility] Comment on above: Order Comment: Speci men Type: BLOOD SPECIMENOrdering Facility: [facility] Address: [address] [place] [address] Performed By: #### 5 7021-8 ####[facility] LABCLIA [id number] [place] [address] Eosinophils/100 WBC (Bld) 4.5 % Normal [facility] Comment on above: Order Comment: Speci men Type: BLOOD SPECIMENOrdering Facility: [facility] Address: [address] [place] [address] Performed By: #### 5 7021-8 ####[facility] LABCLIA [id number] [place] [address] Erythrocyte distribution width (RBC) [Ratio] 12.7 % Normal 11.5-15.0 [facility] Comment on above: Order Comment: Speci men Type: BLOOD SPECIMENOrdering Facility: [facility] Address: [address] [place] [address] Performed By: #### 5 7021-8 ####[facility] LABIA [id number] [place] [address] Hematocrit (Bld) [Volume fraction] 34.6 % Low 39.0-51.0 [facility] Comment on above: Order Comment: Speci men Type: BLOOD SPECIMENOrdering Facility: [facility] Address: [address] [place] [address] Performed By: #### 5 7021-8 ####[facility] LABIA [id number] [place] [address] Hemoglobin (Bld) [Mass/Vol] 11.7 g/dL Low 13.0-17.0 [facility] Comment on above: Order Comment: Speci men Type: BLOOD SPECIMENOrdering Facility: [facility] Address: [address] [place] [address] Performed By: #### 5 7021-8 ####[facility] LABIA [id number] [place] [address] Immature granulocytes (Bld) [#/Vol] 0.03 10*3/uL Normal <0.10 [facility] Comment on above: Order Comment: Speci men Type: BLOOD SPECIMENOrdering Facility: [facility] Address: [address] [place] [address] Performed By: #### 5 7021-8 ####[facility] LABIA [id number] [place] [address] Immature granulocytes/100 WBC (Bld) 0.5 % Normal [facility] Comment on above: Order Comment: Speci men Type: BLOOD SPECIMENOrdering Facility: [facility] Address: [address] [place] [address] Performed By: #### 5 7021-8 ####[facility] LABCLIA [id number] [place] [address] Lymphocytes (Bld) [#/Vol] 1.32 10*3/uL Normal 1.00-4.00 [facility] Comment on above: Order Comment: Speci men Type: BLOOD SPECIMENOrdering Facility: [facility] Address: [address] [place] [address] Performed By: #### 5 7021-8 ####[facility] LABCLIA [id number] [place] [address] Lymphocytes/100 WBC (Bld) 22.0 % Normal [facility] Comment on above: Order Comment: Speci men Type: BLOOD SPECIMENOrdering Facility: [facility] Address: [address] [place] [address] Performed By: #### 5 7021-8 ####[facility] LABCLIA [id number] [place] [address] MCH (RBC) [Entitic mass] 31.0 pg Normal 26.0-34.0 [facility] Comment on above: Order Comment: Speci men Type: BLOOD SPECIMENOrdering Facility: [facility] Address: [address] [place] [address] Performed By: #### 5 7021-8 ####[facility] LABCLIA [id number] [place] [address] MCHC (RBC) [Mass/Vol] 33.8 g/dL Normal 30.5-36.0 [facility] Comment on above: Order Comment: Speci men Type: BLOOD SPECIMENOrdering Facility: [facility] Address: [address] [place] [address] Performed By: #### 5 7021-8 ####[facility] LABCLIA [id number] [place] [address] MCV (RBC) [Entitic vol] 91.5 fL Normal 80.0-100.0 [facility] Comment on above: Order Comment: Speci men Type: BLOOD SPECIMENOrdering Facility: [facility] Address: [address] [place] [address] Performed By: #### 5 7021-8 ####[facility] LABCLIA [id number] [place] [address] Monocytes (Bld) [#/Vol] 1.12 10*3/uL High <0.87 [facility] Comment on above: Order Comment: Speci men Type: BLOOD SPECIMENOrdering Facility: [facility] Address: [address] [place] [address] Performed By: #### 5 7021-8 ####[facility] LABCLIA [id number] [place] [address] Monocytes/100 WBC (Bld) 18.7 % Normal [facility] Comment on above: Order Comment: Speci men Type: BLOOD SPECIMENOrdering Facility: [facility] Address: [address] [place] [address] Performed By: #### 5 7021-8 ####[facility] LABCLIA [id number] [place] [address] Neutrophils (Bld) [#/Vol] 3.23 10*3/uL Normal 1.45-7.50 [facility] Comment on above: Order Comment: Speci men Type: BLOOD SPECIMENOrdering Facility: [facility] Address: [address] [place] [address] Performed By: #### 5 7021-8 ####[facility] LABCLIA [id number] [place] [address] Neutrophils/100 WBC (Bld) 53.8 % Normal [facility] Comment on above: Order Comment: Speci men Type: BLOOD SPECIMENOrdering Facility: [facility] Address: [address] [place] [address] Performed By: #### 5 7021-8 ####[facility] LABCLIA [id number] [place] [address] Nucleated RBC (Bld) [#/Vol] 10*3/uL Normal <0.01 [facility] Comment on above: Order Comment: Speci men Type: BLOOD SPECIMENOrdering Facility: [facility] Address: [address] [place] [address] Performed By: #### 5 7021-8 ####[facility] LABCLIA [id number] [place] [address] Nucleated RBC/100 WBC (Bld) [Ratio] 0.0 /100 WBC Normal [facility] Comment on above: Order Comment: Speci men Type: BLOOD SPECIMENOrdering Facility: [facility] Address: [address] [place] [address] Performed By: #### 5 7021-8 ####[facility] LABCLIA [id number] [place] [address] Platelet mean volume (Bld) [Entitic vol] 10.5 fL Normal 9.0-12.7 [facility] Comment on above: Order Comment: Speci men Type: BLOOD SPECIMENOrdering Facility: [facility] Address: [address] [place] [address] Performed By: #### 5 7021-8 ####[facility] LABCLIA [id number] [place] [address] Platelets (Bld) [#/Vol] 223 10*3/uL Normal 150-400 [facility] Comment on above: Order Comment: Speci men Type: BLOOD SPECIMENOrdering Facility: [facility] Address: [address] [place] [address] Performed By: #### 5 7021-8 ####[facility] LABCLIA [id number] [place] [address] RBC (Bld) [#/Vol] 3.78 10*6/uL Low 4.20-6.00 [facility] Comment on above: Order Comment: Speci men Type: BLOOD SPECIMENOrdering Facility: [facility] Address: [address] [place] [address] Performed By: #### 5 7021-8 ####[facility] LABCLIA [id number] [place] [address] WBC (Bld) [#/Vol] 6.00 10*3/uL Normal 3.70-11.00 [facility] Comment on above: Order Comment: Speci men Type: BLOOD SPECIMENOrdering Facility: [facility] Address: [address] [place] [address] Performed By: #### 5 7021-8 ####[facility] LABCLIA [id number] [place] [address] CNOVon 06-30-2023 CNOV Normal [facility] CNOVSPon 06-30-2023 CNOVSP Normal [facility] Comprehensive metabolic 2000 panelon 06-30-2023 Albumin [Mass/Vol] 4.0 g/dL Normal 3.9-4.9 [facility] Comment on above: Order Comment: Speci men Type: BLOOD SPECIMENOrdering Facility: [facility] Address: [address] [place] [address] Performed By: #### 2 4323-8 ####[facility] LABCLIA [id number] [place] [address] ALP [Catalytic activity/Vol] 79 U/L Normal 38-113 [facility] Comment on above: Order Comment: Speci men Type: BLOOD SPECIMENOrdering Facility: [facility] Address: [address] [place] [address] Performed By: #### 2 4323-8 ####[facility] LABCLIA [id number] [place] [address] ALT [Catalytic activity/Vol] 30 U/L Normal 10-54 [facility] Comment on above: Order Comment: Speci men Type: BLOOD SPECIMENOrdering Facility: [facility] Address: [address] [place] [address] Performed By: #### 2 4323-8 ####[facility] LABCLIA [id number] [place] [address] Anion gap [Moles/Vol] 12 mmol/L Normal 9-18 [facility] Comment on above: Order Comment: Speci men Type: BLOOD SPECIMENOrdering Facility: [facility] Address: [address] [place] [address] Performed By: #### 2 4323-8 ####[facility] LABCLIA [id number] [place] [address] AST [Catalytic activity/Vol] 36 U/L Normal 14-40 [facility] Comment on above: Order Comment: Speci men Type: BLOOD SPECIMENOrdering Facility: [facility] Address: [address] [place] [address] Performed By: #### 2 4323-8 ####[facility] LABCLIA [id number] [place] [address] Bilirubin [Mass/Vol] 0.5 mg/dL Normal 0.2-1.3 [facility] Comment on above: Order Comment: Speci men Type: BLOOD SPECIMENOrdering Facility: [facility] Address: [address] [place] [address] Performed By: #### 2 4323-8 ####[facility] LABCLIA [id number] [place] [address] Calcium [Mass/Vol] 9.6 mg/dL Normal 8.5-10.2 [facility] Comment on above: Order Comment: Speci men Type: BLOOD SPECIMENOrdering Facility: [facility] Address: [address] [place] [address] Performed By: #### 2 4323-8 ####[facility] LABCLIA [id number] [place] [address] Chloride [Moles/Vol] 101 mmol/L Normal 97-105 [facility] Comment on above: Order Comment: Speci men Type: BLOOD SPECIMENOrdering Facility: [facility] Address: [address] [place] [address] Performed By: #### 2 4323-8 ####[facility] LABCLIA [id number] [place] [address] CO2 [Moles/Vol] 26 mmol/L Normal 22-30 [facility] Comment on above: Order Comment: Speci men Type: BLOOD SPECIMENOrdering Facility: [facility] Address: [address] [place] [address] Performed By: #### 2 4323-8 ####[facility] LABCLIA [id number] [place] [address] Creatinine [Mass/Vol] 1.34 mg/dL High 0.73-1.22 [facility] Comment on above: Order Comment: Speci men Type: BLOOD SPECIMENOrdering Facility: [facility] Address: [address] [place] [address] Performed By: #### 2 4323-8 ####[facility] LABCLIA [id number] [place] [address] Creatinine and Glomerular filtration rate.predicted panel (S/P/Bld) 58 mL/min/1.73m??? Low >=60 [facility] Comment on above: Order Comment: Speci men Type: BLOOD SPECIMENOrdering Facility: [facility] Address: [address] [place] [address] Result Comment: Landy mated Glomerular Filtration Rate [...] actual GFR. Performed By: #### 2 4323-8 ####[facility] LABCLIA [id number] [place] [address] Glucose [Mass/Vol] 100 mg/dL High 74-99 [facility] Comment on above: Order Comment: Speci men Type: BLOOD SPECIMENOrdering Facility: [facility] Address: [address] [id number] Result Comment: The [place] [employer] (ADA) provides guidance for cutoff [...] Standards of Medical Care in Diabetes 2016, [place] [employer]. Diabetes Care. 2016.39(Suppl 1). Performed By: #### 2 4323-8 ####[facility] LABCLIA [id number] [place] [address] Potassium [Moles/Vol] 4.0 mmol/L Normal 3.7-5.1 [facility] Comment on above: Order Comment: Speci men Type: BLOOD SPECIMENOrdering Facility: [facility] Address: [address] [place] [address] Performed By: #### 2 4323-8 ####[facility] LABCLIA [id number] [place] [address] Protein [Mass/Vol] 7.4 g/dL Normal 6.3-8.0 [facility] Comment on above: Order Comment: Speci men Type: BLOOD SPECIMENOrdering Facility: [facility] Address: [address] [place] [address] Performed By: #### 2 4323-8 ####[facility] LABCLIA [id number] [place] [address] Sodium [Moles/Vol] 139 mmol/L Normal 136-144 [facility] Comment on above: Order Comment: Speci men Type: BLOOD SPECIMENOrdering Facility: [facility] Address: [address] [place] [address] Performed By: #### 2 4323-8 ####[facility] LABCLIA [id number] [place] [address] Urea nitrogen [Mass/Vol] 28 mg/dL High 04-13 [facility] Comment on above: Order Comment: Speci men Type: BLOOD SPECIMENOrdering Facility: [facility] Address: [address] [place] [address] Performed By: #### 2 4323-8 ####[facility] LABCLIA [id number] [place] [address] TSH SerPl-aCncon 06-30-2023 TSH Qn 2.840 m[IU]/L Normal 0.270-4.200 [facility] Comment on above: Order Comment: Speci men Type: BLOOD SPECIMENOrdering Facility: [facility] Address: [address] [place] [address] Performed By: #### 3 016-3 ####[facility] LABCLIA [id number] [facility] [id number] [place], [place] [address] [place] CNOVon 06-23-2023 CNOV Normal [facility] CNOVon 06-13-2023 CNOV Normal [facility] CNOVon 06-10-2023 CNOV Normal [facility] CBC W Auto Differential pane l (Bld)on 06-02-2023 Basophils (Bld) [#/Vol] <0.11 k/uL [facility] Basophils/100 WBC (Bld) 0.4 % [facility] Differential cell count method Nom (Bld) Auto [facility] Eosinophils (Bld) [#/Vol] 0.08 10*3/uL <0.46 k/uL [facility] Eosinophils/100 WBC (Bld) 1.5 % [facility] Erythrocyte distribution width (RBC) [Ratio] 13.9 % 11.5 - 15.0 % [facility] Hematocrit (Bld) [Volume fraction] 37.5 % Low 39.0 - 51.0 % [facility] Hemoglobin (Bld) [Mass/Vol] 12.9 g/dL Low 13.0 - 17.0 g/dL [facility] [facility] Immature granulocytes (Bld) [#/Vol] 0.03 10*3/uL <0.10 k/uL [facility] Immature granulocytes/100 WBC (Bld) 0.6 % [facility] Lymphocytes (Bld) [#/Vol] 0.76 10*3/uL Low 1.00 - 4.00 k/uL [facility] Lymphocytes/100 WBC (Bld) 14.1 % [facility] MCH (RBC) [Entitic mass] 31.7 pg 26.0 - 34.0 pg [facility] MCHC (RBC) [Mass/Vol] 34.4 g/dL 30.5 - 36.0 g/dL [facility] MCV (RBC) [Entitic vol] 92.1 fL 80.0 - 100.0 fL [facility] Monocytes (Bld) [#/Vol] 0.67 10*3/uL <0.87 k/uL [facility] Monocytes/100 WBC (Bld) 12.4 % [facility] Neutrophils (Bld) [#/Vol] 3.84 10*3/uL 1.45 - 7.50 k/uL [facility] Neutrophils/100 WBC (Bld) 71.0 % [facility] Nucleated RBC (Bld) [#/Vol] <0.01 k/uL [facility] Nucleated RBC/100 WBC (Bld) [Ratio] 0.0 /100 WBC [facility] Platelet mean volume (Bld) [Entitic vol] 10.6 fL 9.0 - 12.7 fL [facility] Platelets (Bld) [#/Vol] 205 10*3/uL 150 - 400 k/uL [facility] RBC (Bld) [#/Vol] 4.07 10*6/uL Low 4.20 - 6.00 m/uL [facility] WBC (Bld) [#/Vol] 5.40 10*3/uL 3.70 - 11.00 k/u L [facility] Basophils (Bld) [#/Vol] 10*3/uL Normal <0.11 [facility] Comment on above: Order Comment: Speci men Type: BLOOD SPECIMENOrdering Facility: [facility] Address: [address] [place] [address] Performed By: #### 5 7021-8 ####[facility] LABCLIA [id number] [place] [address] Basophils/100 WBC (Bld) 0.4 % Normal [facility] Comment on above: Order Comment: Speci men Type: BLOOD SPECIMENOrdering Facility: [facility] Address: [address] [place] [address] Performed By: #### 5 7021-8 ####[facility] LABCLIA [id number] [place] [address] Differential cell count method Nom (Bld) Auto Normal [facility] Comment on above: Order Comment: Speci men Type: BLOOD SPECIMENOrdering Facility: [facility] Address: [address] [place] [address] Performed By: #### 5 7021-8 ####[facility] LABCLIA [id number] [place] [address] Eosinophils (Bld) [#/Vol] 0.08 10*3/uL Normal <0.46 [facility] Comment on above: Order Comment: Speci men Type: BLOOD SPECIMENOrdering Facility: [facility] Address: [address] [place] [address] Performed By: #### 5 7021-8 ####[facility] LABCLIA [id number] [place] [address] Eosinophils/100 WBC (Bld) 1.5 % Normal [facility] Comment on above: Order Comment: Speci men Type: BLOOD SPECIMENOrdering Facility: [facility] Address: [address] [place] [address] Performed By: #### 5 7021-8 ####[facility] LABCLIA [id number] [place] [address] Erythrocyte distribution width (RBC) [Ratio] 13.9 % Normal 11.5-15.0 [facility] Comment on above: Order Comment: Speci men Type: BLOOD SPECIMENOrdering Facility: [facility] Address: [address] [place] [address] Performed By: #### 5 7021-8 ####[facility] LABCLIA [id number] [place] [address] Hematocrit (Bld) [Volume fraction] 37.5 % Low 39.0-51.0 [facility] Comment on above: Order Comment: Speci men Type: BLOOD SPECIMENOrdering Facility: [facility] Address: [address] [place] [address] Performed By: #### 5 7021-8 ####[facility] LABCLIA [id number] [place] [address] Hemoglobin (Bld) [Mass/Vol] 12.9 g/dL Low 13.0-17.0 [facility] Comment on above: Order Comment: Speci men Type: BLOOD SPECIMENOrdering Facility: [facility] Address: [address] [place] [address] Performed By: #### 5 7021-8 ####[facility] LABCLIA [id number] [place] [address] Immature granulocytes (Bld) [#/Vol] 0.03 10*3/uL Normal <0.10 [facility] Comment on above: Order Comment: Speci men Type: BLOOD SPECIMENOrdering Facility: [facility] Address: [address] [place] [address] Performed By: #### 5 7021-8 ####[facility] LABCLIA [id number] [place] [address] Immature granulocytes/100 WBC (Bld) 0.6 % Normal [facility] Comment on above: Order Comment: Speci men Type: BLOOD SPECIMENOrdering Facility: [facility] Address: [address] [place] [address] Performed By: #### 5 7021-8 ####[facility] LABCLIA [id number] [place] [address] Lymphocytes (Bld) [#/Vol] 0.76 10*3/uL Low 1.00-4.00 [facility] Comment on above: Order Comment: Speci men Type: BLOOD SPECIMENOrdering Facility: [facility] Address: [address] [place] [address] Performed By: #### 5 7021-8 ####[facility] LABCLIA [id number] [place] [address] Lymphocytes/100 WBC (Bld) 14.1 % Normal [facility] Comment on above: Order Comment: Speci men Type: BLOOD SPECIMENOrdering Facility: [facility] Address: [address] [place] [address] Performed By: #### 5 7021-8 ####[facility] LABCLIA [id number] [place] [address] MCH (RBC) [Entitic mass] 31.7 pg Normal 26.0-34.0 [facility] Comment on above: Order Comment: Speci men Type: BLOOD SPECIMENOrdering Facility: [facility] Address: [address] [place] [address] Performed By: #### 5 7021-8 ####[facility] LABCLIA [id number] [place] [address] MCHC (RBC) [Mass/Vol] 34.4 g/dL Normal 30.5-36.0 [facility] Comment on above: Order Comment: Speci men Type: BLOOD SPECIMENOrdering Facility: [facility] Address: [address] [place] [address] Performed By: #### 5 7021-8 ####[facility] LABCLIA [id number] [place] [address] MCV (RBC) [Entitic vol] 92.1 fL Normal 80.0-100.0 [facility] Comment on above: Order Comment: Speci men Type: BLOOD SPECIMENOrdering Facility: [facility] Address: [address] [place] [address] Performed By: #### 5 7021-8 ####[facility] LABCLIA [id number] [place] [address] Monocytes (Bld) [#/Vol] 0.67 10*3/uL Normal <0.87 [facility] Comment on above: Order Comment: Speci men Type: BLOOD SPECIMENOrdering Facility: [facility] Address: [address] [place] [address] Performed By: #### 5 7021-8 ####[facility] LABCLIA [id number] [place] [address] Monocytes/100 WBC (Bld) 12.4 % Normal [facility] Comment on above: Order Comment: Speci men Type: BLOOD SPECIMENOrdering Facility: [facility] Address: [address] [place] [address] Performed By: #### 5 7021-8 ####[facility] LABCLIA [id number] [place] [address] Neutrophils (Bld) [#/Vol] 3.84 10*3/uL Normal 1.45-7.50 [facility] Comment on above: Order Comment: Speci men Type: BLOOD SPECIMENOrdering Facility: [facility] Address: [address] [place] [address] Performed By: #### 5 7021-8 ####[facility] LABCLIA [id number] [place] [address] Neutrophils/100 WBC (Bld) 71.0 % Normal [facility] Comment on above: Order Comment: Speci men Type: BLOOD SPECIMENOrdering Facility: [facility] Address: [address] [place] [address] Performed By: #### 5 7021-8 ####[facility] LABIA [id number] [place] [address] Nucleated RBC (Bld) [#/Vol] 10*3/uL Normal <0.01 [facility] Comment on above: Order Comment: Speci men Type: BLOOD SPECIMENOrdering Facility: [facility] Address: [address] [place] [address] Performed By: #### 5 7021-8 ####[facility] LABCLIA [id number] [place] [address] Nucleated RBC/100 WBC (Bld) [Ratio] 0.0 /100 WBC Normal [facility] Comment on above: Order Comment: Speci men Type: BLOOD SPECIMENOrdering Facility: [facility] Address: [address] [place] [address] Performed By: #### 5 7021-8 ####[facility] LABCLIA [id number] [place] [address] Platelet mean volume (Bld) [Entitic vol] 10.6 fL Normal 9.0-12.7 [facility] Comment on above: Order Comment: Speci men Type: BLOOD SPECIMENOrdering Facility: [facility] Address: [address] [place] [address] Performed By: #### 5 7021-8 ####[facility] LABCLIA [id number] [place] [address] Platelets (Bld) [#/Vol] 205 10*3/uL Normal 150-400 [facility] Comment on above: Order Comment: Speci men Type: BLOOD SPECIMENOrdering Facility: [facility] Address: [address] [place] [address] Performed By: #### 5 7021-8 ####[facility] LABCLIA [id number] [place] [address] RBC (Bld) [#/Vol] 4.07 10*6/uL Low 4.20-6.00 [facility] Comment on above: Order Comment: Speci men Type: BLOOD SPECIMENOrdering Facility: [facility] Address: [address] [place] [address] Performed By: #### 5 7021-8 ####[facility] LABCLIA [id number] [place] [address] WBC (Bld) [#/Vol] 5.40 10*3/uL Normal 3.70-11.00 [facility] Comment on above: Order Comment: Speci men Type: BLOOD SPECIMENOrdering Facility: [facility] Address: [place] [address] Performed By: #### 5 7021-8 ####[facility] LABCLIA [id number] [place] [address] CNOVSPon 06-02-2023 CNOVSP Normal [facility] metabolic 2000 panelon 06-02-2023 Albumin [Mass/Vol] 4.3 g/dL 3.9 - 4.9 g/dL Cl [facility] ALP [Catalytic activity/Vol] 58 U/L 38 - 113 U/L [facility] ALT [Catalytic activity/Vol] 14 U/L 10 - 54 U/L [facility] Anion gap [Moles/Vol] 10 mmol/L 9 - 18 mmol/L [facility] AST [Catalytic activity/Vol] 18 U/L 14 - 40 U/L [facility] Bilirubin [Mass/Vol] 0.5 mg/dL 0.2 - 1.3 mg/dL [facility] Calcium [Mass/Vol] 9.8 mg/dL 8.5 - 10.2 mg/dL [facility] Chloride [Moles/Vol] 102 mmol/L 97 - 105 mmol/L [facility] CO2 [Moles/Vol] 26 mmol/L 22 - 30 mmol/L [facility] Creatinine [Mass/Vol] 0.90 mg/dL 0.73 - 1.22 mg/dL [facility] Estimated Glomerular Filtration Rate 94 mL/min/1.73m >=60 mL/min/1.73m [facility] Glucose [Mass/Vol] 117 mg/dL High 74 - 99 mg/dL [facility] Potassium [Moles/Vol] 3.5 mmol/L Low 3.7 - 5.1 mmol/L [facility] Protein [Mass/Vol] 7.7 g/dL 6.3 - 8.0 g/dL [facility] Sodium [Moles/Vol] 138 mmol/L 136 - 144 mmol/L [facility] Urea nitrogen [Mass/Vol] 24 mg/dL 9 - 24 mg/dL [facility] Albumin [Mass/Vol] 4.3 g/dL Normal 3.9-4.9 [facility] Comment on above: Order Comment: Speci men Type: BLOOD SPECIMENOrdering Facility: [facility] Address: [address] [place] [address] Performed By: #### 2 4323-8 ####[facility] LABCLIA [id number] [place] [address] ALP [Catalytic activity/Vol] 58 U/L Normal 38-113 [facility] Comment on above: Order Comment: Speci men Type: BLOOD SPECIMENOrdering Facility: [facility] Address: [address] [place] [address] Performed By: #### 2 4323-8 ####[facility] LABCLIA [id number] [place] [address] ALT [Catalytic activity/Vol] 14 U/L Normal 10-54 [facility] Comment on above: Order Comment: Speci men Type: BLOOD SPECIMENOrdering Facility: [facility] Address: [address] [place] [address] Performed By: #### 2 4323-8 ####[facility] LABCLIA [id number] [place] [address] Anion gap [Moles/Vol] 10 mmol/L Normal 9-18 [facility] Comment on above: Order Comment: Speci men Type: BLOOD SPECIMENOrdering Facility: [facility] Address: [address] [place] [address] Performed By: #### 2 4323-8 ####[facility] LABCLIA [id number] [place] [address] AST [Catalytic activity/Vol] 18 U/L Normal 14-40 [facility] Comment on above: Order Comment: Speci men Type: BLOOD SPECIMENOrdering Facility: [facility] Address: [address] [place] [address] Performed By: #### 2 4323-8 ####[facility] LABCLIA [id number] [place] [address] Bilirubin [Mass/Vol] 0.5 mg/dL Normal 0.2-1.3 [facility] Comment on above: Order Comment: Speci men Type: BLOOD SPECIMENOrdering Facility: [facility] Address: [address] [place] [address] Performed By: #### 2 4323-8 ####[facility] LABCLIA [id number] [place] [address] Calcium [Mass/Vol] 9.8 mg/dL Normal 8.5-10.2 [facility] Comment on above: Order Comment: Speci men Type: BLOOD SPECIMENOrdering Facility: [facility] Address: [address] [place] [address] Performed By: #### 2 4323-8 ####[facility] LABCLIA [id number] [place] [address] Chloride [Moles/Vol] 102 mmol/L Normal 97-105 [facility] Comment on above: Order Comment: Speci men Type: BLOOD SPECIMENOrdering Facility: [facility] Address: [address] [place] [address] Performed By: #### 2 4323-8 ####[facility] LABCLIA [id number] [place] [address] CO2 [Moles/Vol] 26 mmol/L Normal 22-30 [facility] Comment on above: Order Comment: Speci men Type: BLOOD SPECIMENOrdering Facility: [facility] Address: [address] [place] [address] Performed By: #### 2 4323-8 ####[facility] LABCLIA [id number] [place] [address] Creatinine [Mass/Vol] 0.90 mg/dL Normal 0.73-1.22 [facility] Comment on above: Order Comment: Speci men Type: BLOOD SPECIMENOrdering Facility: [facility] Address: [address] [place] [address] Performed By: #### 2 4323-8 ####[facility] LABCLIA [id number] [place] [address] Creatinine and Glomerular filtration rate.predicted panel (S/P/Bld) 94 mL/min/1.73m??? Normal >=60 [facility] Comment on above: Order Comment: Ajay rausch Type: BLOOD SPECIMENOrdering Facility: [facility] Address: [address] [place] [address] Result Comment: Landy mated Glomerular Filtration Rate [...] actual GFR. Performed By: #### 2 4323-8 ####[facility] LABCLIA [id number] [place] [address] Glucose [Mass/Vol] 117 mg/dL High 74-99 [facility] Comment on above: Order Comment: Ajay rausch Type: BLOOD SPECIMENOrdering Facility: [facility] Address: [address] [place] [address] Result Comment: The [place] [employer] (ADA) provides guidance for cutoff [...] Standards of Medical Care in Diabetes 2016, [place] [employer]. Diabetes Care. 2016.39(Suppl 1). Performed By: #### 2 4323-8 ####[facility] LABCLIA [id number] [place] [address] Potassium [Moles/Vol] 3.5 mmol/L Low 3.7-5.1 [facility] Comment on above: Order Comment: Speci men Type: BLOOD SPECIMENOrdering Facility: [facility] Address: [address] [place] [address] Performed By: #### 2 4323-8 ####[facility] LABCLIA [id number] [place] [address] Protein [Mass/Vol] 7.7 g/dL Normal 6.3-8.0 [facility] Comment on above: Order Comment: Speci men Type: BLOOD SPECIMENOrdering Facility: [facility] Address: [address] [place] [address] Performed By: #### 2 4323-8 ####[facility] LABCLIA [id number] [place] [address] Sodium [Moles/Vol] 138 mmol/L Normal 136-144 [facility] Comment on above: Order Comment: Speci men Type: BLOOD SPECIMENOrdering Facility: [facility] Address: [address] [place] [address] Performed By: #### 2 4323-8 ####[facility] LABCLIA [id number] [place] [address] Urea nitrogen [Mass/Vol] 24 mg/dL Normal 9-24 [facility] Comment on above: Order Comment: Speci men Type: BLOOD SPECIMENOrdering Facility: [facility] Address: [address] [place] [address] Performed By: #### 2 4323-8 ####[facility] LABCLIA [id number] [place] [address] CNCNPATEDon 05-30-2023 CNCNPATED Normal [facility] CNOVon 05-30-2023 CNOV Normal [facility] CNOVon 05-27-2023 CNOV Normal [facility] CNCNPATEDon 05-20-2023 CNCNPATED Normal [facility] CNPNon 05-20-2023 CNPN Normal [facility] CNPNon 05-19-2023 CNPN Normal [facility] CNOVon 05-16-2023 CNOV Normal [facility] CNPNon 05-15-2023 CNPN Normal [facility] CNPNon 05-14-2023 CNPN Normal [facility] CBC W Auto Differential pane l (Bld)on 05-13-2023 Basophils (Bld) [#/Vol] 10*3/uL Normal <0.11 [facility] Comment on above: Order Comment: Speci men Type: BLOOD SPECIMENOrdering Facility: [facility] Address: [address] [place] [address] Performed By: #### 5 7021-8 ####[facility] LABCLIA [id number] [place] [address] Basophils/100 WBC (Bld) 0.3 % Normal [facility] Comment on above: Order Comment: Speci men Type: BLOOD SPECIMENOrdering Facility: [facility] Address: [address] [place] [address] Performed By: #### 5 7021-8 ####[facility] LABCLIA [id number] [place] [address] Differential cell count method Nom (Bld) Auto Normal [facility] Comment on above: Order Comment: Speci men Type: BLOOD SPECIMENOrdering Facility: [facility] Address: [address] [place] [address] Performed By: #### 5 7021-8 ####[facility] LABCLIA [id number] [place] [address] Eosinophils (Bld) [#/Vol] 0.14 10*3/uL Normal <0.46 [facility] Comment on above: Order Comment: Speci men Type: BLOOD SPECIMENOrdering Facility: [facility] Address: [address] [place] [address] Performed By: #### 5 7021-8 ####[facility] LABCLIA [id number] [place] [address] Eosinophils/100 WBC (Bld) 2.3 % Normal [facility] Comment on above: Order Comment: Speci men Type: BLOOD SPECIMENOrdering Facility: [facility] Address: [address] [place] [address] Performed By: #### 5 7021-8 ####[facility] LABCLIA [id number] [place] [address] Erythrocyte distribution width (RBC) [Ratio] 13.7 % Normal 11.5-15.0 [facility] Comment on above: Order Comment: Speci men Type: BLOOD SPECIMENOrdering Facility: [facility] Address: [address] [place] [address] Performed By: #### 5 7021-8 ####[facility] LABCLIA [id number] [place] [address] Hematocrit (Bld) [Volume fraction] 37.6 % Low 39.0-51.0 [facility] Comment on above: Order Comment: Speci men Type: BLOOD SPECIMENOrdering Facility: [facility] Address: [address] [place] [address] Performed By: #### 5 7021-8 ####[facility] LABCLIA [id number] [place] [address] Hemoglobin (Bld) [Mass/Vol] 13.0 g/dL Normal 13.0-17.0 [facility] Comment on above: Order Comment: Speci men Type: BLOOD SPECIMENOrdering Facility: [facility] Address: [address] [place] [address] Performed By: #### 5 7021-8 ####[facility] LABCLIA [id number] [place] [address] Immature granulocytes (Bld) [#/Vol] 0.03 10*3/uL Normal <0.10 [facility] Comment on above: Order Comment: Speci men Type: BLOOD SPECIMENOrdering Facility: [facility] Address: [address] [place], [place] [address] Performed By: #### 5 7021-8 ####[facility] LABCLIA [id number] [place] [address] Immature granulocytes/100 WBC (Bld) 0.5 % Normal [facility] Comment on above: Order Comment: Speci men Type: BLOOD SPECIMENOrdering Facility: [facility] Address: [address] [place] [address] Performed By: #### 5 7021-8 ####[facility] LABCLIA [id number] [place] [address] Lymphocytes (Bld) [#/Vol] 1.01 10*3/uL Normal 1.00-4.00 [facility] Comment on above: Order Comment: Speci men Type: BLOOD SPECIMENOrdering Facility: [facility] Address: [address] [place] [address] Performed By: #### 5 7021-8 ####[facility] LABCLIA [id number] [place] [address] Lymphocytes/100 WBC (Bld) 16.4 % Normal [facility] Comment on above: Order Comment: Speci men Type: BLOOD SPECIMENOrdering Facility: [facility] Address: [address] [place] [address] Performed By: #### 5 7021-8 ####[facility] LABCLIA [id number] [place] [address] MCH (RBC) [Entitic mass] 31.9 pg Normal 26.0-34.0 [facility] Comment on above: Order Comment: Speci men Type: BLOOD SPECIMENOrdering Facility: [facility] Address: [address] [place] [address] Performed By: #### 5 7021-8 ####[facility] LABCLIA [id number] [place] [address] MCHC (RBC) [Mass/Vol] 34.6 g/dL Normal 30.5-36.0 [facility] Comment on above: Order Comment: Speci men Type: BLOOD SPECIMENOrdering Facility: [facility] Address: [address] [place] [address] Performed By: #### 5 7021-8 ####[facility] LABCLIA [id number] [place] [address] MCV (RBC) [Entitic vol] 92.2 fL Normal 80.0-100.0 [facility] Comment on above: Order Comment: Speci men Type: BLOOD SPECIMENOrdering Facility: [facility] Address: [address] [place] [address] Performed By: #### 5 7021-8 ####[facility] LABCLIA [id number] [place] [place] [address] Monocytes (Bld) [#/Vol] 0.86 10*3/uL Normal <0.87 [facility] Comment on above: Order Comment: Speci men Type: BLOOD SPECIMENOrdering Facility: [facility] Address: [address] [place] [address] Performed By: #### 5 7021-8 ####[facility] LABCLIA [id number] [place] [address] Monocytes/100 WBC (Bld) 14.0 % Normal [facility] Comment on above: Order Comment: Speci men Type: BLOOD SPECIMENOrdering Facility: [facility] Address: [address] [place] [address] Performed By: #### 5 7021-8 ####[facility] LABCLIA [id number] [place] [address] Neutrophils (Bld) [#/Vol] 4.09 10*3/uL Normal 1.45-7.50 [facility] Comment on above: Order Comment: Speci men Type: BLOOD SPECIMENOrdering Facility: [facility] Address: [address] [place] [address] Performed By: #### 5 7021-8 ####[facility] LABCLIA [id number] [place] [address] Neutrophils/100 WBC (Bld) 66.5 % Normal [facility] Comment on above: Order Comment: Speci men Type: BLOOD SPECIMENOrdering Facility: [facility] Address: [address] [place] [address] Performed By: #### 5 7021-8 ####[facility] LABCLIA [id number] [place] [address] Nucleated RBC (Bld) [#/Vol] 10*3/uL Normal <0.01 [facility] Comment on above: Order Comment: Speci men Type: BLOOD SPECIMENOrdering Facility: [facility] Address: [address] [place] [address] Performed By: #### 5 7021-8 ####[facility] LABIA [id number] [place] [address] Nucleated RBC/100 WBC (Bld) [Ratio] 0.0 /100 WBC Normal [facility] Comment on above: Order Comment: Speci men Type: BLOOD SPECIMENOrdering Facility: [facility] Address: [address] [place] [address] Performed By: #### 5 7021-8 ####[facility] LABCLIA [id number] [place] [address] Platelet mean volume (Bld) [Entitic vol] 11.4 fL Normal 9.0-12.7 [facility] Comment on above: Order Comment: Speci men Type: BLOOD SPECIMENOrdering Facility: [facility] Address: [address] [place] [address] Performed By: #### 5 7021-8 ####[facility] LABIA [id number] [place] [address] Platelets (Bld) [#/Vol] 188 10*3/uL Normal 150-400 [facility] Comment on above: Order Comment: Speci men Type: BLOOD SPECIMENOrdering Facility: [facility] Address: [address] [place] [address] Performed By: #### 5 7021-8 ####[facility] LABCLIA [id number] [place] [address] RBC (Bld) [#/Vol] 4.08 10*6/uL Low 4.20-6.00 [facility] Comment on above: Order Comment: Speci men Type: BLOOD SPECIMENOrdering Facility: [facility] Address: [address] [place] [address] Performed By: #### 5 7021-8 ####[facility] LABCLIA [id number] [place] [address] WBC (Bld) [#/Vol] 6.15 10*3/uL Normal 3.70-11.00 [facility] Comment on above: Order Comment: Speci men Type: BLOOD SPECIMENOrdering Facility: [facility] Address: [address] [place] [address] Performed By: #### 5 7021-8 ####[facility] LABCLIA [id number] [place] [address] CNOVSPon 05-13-2023 CNOVSP Normal [facility] CNPNon 05-13-2023 CNPN Normal [facility] Comprehensive metabolic 2000 panelon 05-13-2023 Albumin [Mass/Vol] 4.5 g/dL Normal 3.9-4.9 [facility] Comment on above: Order Comment: Speci men Type: BLOOD SPECIMENOrdering Facility: [facility] Address: [address] [id number] Performed By: #### 2 4323-8 ####[facility] LABCLIA [id number] [place] [address] ALP [Catalytic activity/Vol] 68 U/L Normal 38-113 [facility] Comment on above: Order Comment: Speci men Type: BLOOD SPECIMENOrdering Facility: [facility] Address: [address] [place] [address] Performed By: #### 2 4323-8 ####[facility] LABCLIA [id number] [place] [address] ALT [Catalytic activity/Vol] 24 U/L Normal 10-54 [facility] Comment on above: Order Comment: Speci men Type: BLOOD SPECIMENOrdering Facility: [facility] Address: [address] [place] [address] Performed By: #### 2 4323-8 ####[facility] LABCLIA [id number] [place] [address] Anion gap [Moles/Vol] 7 mmol/L Low 9-18 [facility] Comment on above: Order Comment: Speci men Type: BLOOD SPECIMENOrdering Facility: [facility] Address: [address] [place] [address] Performed By: #### 2 4323-8 ####[facility] LABCLIA [id number] [place] [address] AST [Catalytic activity/Vol] 24 U/L Normal 14-40 [facility] Comment on above: Order Comment: Speci men Type: BLOOD SPECIMENOrdering Facility: [facility] Address: [address] [place] [address] Performed By: #### 2 4323-8 ####[facility] LABCLIA [id number] [place] [address] Bilirubin [Mass/Vol] 0.4 mg/dL Normal 0.2-1.3 [facility] Comment on above: Order Comment: Speci men Type: BLOOD SPECIMENOrdering Facility: [facility] Address: [address] [place] [address] Performed By: #### 2 4323-8 ####[facility] LABCLIA [id number] [place] [address] Calcium [Mass/Vol] 9.8 mg/dL Normal 8.5-10.2 [facility] Comment on above: Order Comment: Speci men Type: BLOOD SPECIMENOrdering Facility: [facility] Address: [address] [place] [address] Performed By: #### 2 4323-8 ####[facility] LABCLIA [id number] [place] [address] Chloride [Moles/Vol] 102 mmol/L Normal 97-105 [facility] Comment on above: Order Comment: Speci men Type: BLOOD SPECIMENOrdering Facility: [facility] Address: [address] [place] [address] Performed By: #### 2 4323-8 ####[facility] LABCLIA [id number] [place] [address] CO2 [Moles/Vol] 28 mmol/L Normal 22-30 [facility] Comment on above: Order Comment: Speci men Type: BLOOD SPECIMENOrdering Facility: [facility] Address: [address] [place] [address] Performed By: #### 2 4323-8 ####[facility] LABCLIA [id number] [place] [address] Creatinine [Mass/Vol] 1.06 mg/dL Normal 0.73-1.22 [facility] Comment on above: Order Comment: Speci men Type: BLOOD SPECIMENOrdering Facility: [facility] Address: [address] [place] [address] Performed By: #### 2 4323-8 ####[facility] LABCLIA [id number] [place] [address] Creatinine and Glomerular filtration rate.predicted panel (S/P/Bld) 77 mL/min/1.73m??? Normal >=60 [facility] Comment on above: Order Comment: Speci men Type: BLOOD SPECIMENOrdering Facility: [facility] Address: [address] [place] [address] Result Comment: Landy mated Glomerular Filtration Rate [...] actual GFR. Performed By: #### 2 4323-8 ####[facility] LABCLIA [id number] [place] [address] Glucose [Mass/Vol] 150 mg/dL High 74-99 [facility] Comment on above: Order Comment: Ajay rausch Type: BLOOD SPECIMENOrdering Facility: [facility] Address: [address] [place] [address] Result Comment: The [place] [employer] (ADA) provides guidance for cutoff [...] Standards of Medical Care in Diabetes 2016, [place] [employer]. Diabetes Care. 2016.39(Suppl 1). Performed By: #### 2 4323-8 ####[facility] LABCLIA [id number] [place] [address] Potassium [Moles/Vol] 3.4 mmol/L Low 3.7-5.1 [facility] Comment on above: Order Comment: Ajay rausch Type: BLOOD SPECIMENOrdering Facility: [facility] Address: [address] [place] [address] Performed By: #### 2 4323-8 ####[facility] LABCLIA [id number] [place] [address] Protein [Mass/Vol] 7.5 g/dL Normal 6.3-8.0 [facility] Comment on above: Order Comment: Ajay rausch Type: BLOOD SPECIMENOrdering Facility: [facility] Address: [address] [place] [address] Performed By: #### 2 4323-8 ####[facility] LABCLIA [id number] [place] [address] Sodium [Moles/Vol] 137 mmol/L Normal 136-144 [facility] Comment on above: Order Comment: Speci men Type: BLOOD SPECIMENOrdering Facility: [facility] Address: [address] [place] [address] Performed By: #### 2 4323-8 ####[facility] LABCLIA [id number] [place] [address] Urea nitrogen [Mass/Vol] 30 mg/dL High - [facility] Comment on above: Order Comment: Speci men Type: BLOOD SPECIMENOrdering Facility: [facility] Address: [address] [place] [address] Performed By: #### 2 4323-8 ####[facility] LABCLIA [id number] [place] [address] T4/FTI/T4Uon 05-13-2023 FTI 6.6 ug/dL Normal 5.3-10.8 [facility] Comment on above: Order Comment: Speci men Type: BLOOD SPECIMENOrdering Facility: [facility] Address: [address] [place] [address] Performed By: #### T 4FALEJANDRO, 6-3 ####[facility] LABCLIA [id number] [place] [address] [place] T4 [Mass/Vol] 6.3 ug/dL Normal 5.5-10.2 [facility] Comment on above: Order Comment: Speci men Type: BLOOD SPECIMENOrdering Facility: [facility] Address: [address] [place] [address] Performed By: #### T ROCIO, 3015-3 ####[facility] LABCLIA [id number] [address] [address] [place] T4 uptake [Mass/Vol] 0.96 Normal 0.91-1.19 [facility] Comment on above: Order Comment: Speci men Type: BLOOD SPECIMENOrdering Facility: [facility] Address: [address] [place] [address] Performed By: #### T 4FALEJANDRO, 3016-3 ####[facility] LABCLIA [id number] [place] [address] [place] TSH SerPl-aCncon 05-13-2023 TSH Qn 47.800 m[IU]/L High 0.270-4.200 [facility] Comment on above: Order Comment: Speci men Type: BLOOD SPECIMENOrdering Facility: [facility] Address: [address] [place] [address] Performed By: #### T 4FALEJANDRO, 6-3 ####[facility] LABCLIA [id number] [place] [address] [place] NM PET/CT SKULL-THIGH SUBQon 05-12-2023 NM PET/CT SKULL-THIGH SUBQ Normal [facility] CNPNon 05-08-2023 CNPN Normal [facility] CNPNon 04-23-2023 CNPN Normal [facility] CBC W Auto Differential pane l (Bld)on 04-22-2023 Basophils (Bld) [#/Vol] 0.04 10*3/uL Normal <0.11 [facility] Comment on above: Order Comment: Speci men Type: BLOOD SPECIMENOrdering Facility: [facility] Address: [address] [place] [address] Performed By: #### 5 7021-8 ####[facility] LABCLIA [id number] [place] [address] Basophils/100 WBC (Bld) 0.8 % Normal [facility] Comment on above: Order Comment: Speci men Type: BLOOD SPECIMENOrdering Facility: [facility] Address: [address] [place] [address] Performed By: #### 5 7021-8 ####[facility] LABCLIA [id number] [place] [address] Differential cell count method Nom (Bld) Auto Normal [facility] Comment on above: Order Comment: Speci men Type: BLOOD SPECIMENOrdering Facility: [facility] Address: [address] [place] [address] Performed By: #### 5 7021-8 ####[facility] LABCLIA [id number] [place] [address] Eosinophils (Bld) [#/Vol] 0.07 10*3/uL Normal <0.46 [facility] Comment on above: Order Comment: Speci men Type: BLOOD SPECIMENOrdering Facility: [facility] Address: [address] [place] [address] Performed By: #### 5 7021-8 ####[facility] LABIA [id number] [place] [address] Eosinophils/100 WBC (Bld) 1.4 % Normal [facility] Comment on above: Order Comment: Speci men Type: BLOOD SPECIMENOrdering Facility: [facility] Address: [address] [place] [address] Performed By: #### 5 7021-8 ####[facility] LABCLIA [id number] [place] [address] Erythrocyte distribution width (RBC) [Ratio] 14.5 % Normal 11.5-15.0 [facility] Comment on above: Order Comment: Speci men Type: BLOOD SPECIMENOrdering Facility: [facility] Address: [address] [place] [address] Performed By: #### 5 7021-8 ####[facility] LABIA [id number] [place] [address] Hematocrit (Bld) [Volume fraction] 39.9 % Normal 39.0-51.0 [facility] Comment on above: Order Comment: Speci men Type: BLOOD SPECIMENOrdering Facility: [facility] Address: [address] [place] [address] Performed By: #### 5 7021-8 ####[facility] LABCLIA [id number] [place] [address] Hemoglobin (Bld) [Mass/Vol] 13.7 g/dL Normal 13.0-17.0 [facility] Comment on above: Order Comment: Speci men Type: BLOOD SPECIMENOrdering Facility: [facility] Address: [address] [place] [address] Performed By: #### 5 7021-8 ####[facility] LABCLIA [id number] [place] [address] Immature granulocytes (Bld) [#/Vol] 0.05 10*3/uL Normal <0.10 [facility] Comment on above: Order Comment: Speci men Type: BLOOD SPECIMENOrdering Facility: [facility] Address: [address] [place] [address] Performed By: #### 5 7021-8 ####[facility] LABCLIA [id number] [place] [address] Immature granulocytes/100 WBC (Bld) 1.0 % Normal [facility] Comment on above: Order Comment: Speci men Type: BLOOD SPECIMENOrdering Facility: [facility] Address: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 [facility] Comprehensive metabolic 2000 panelon 01-07-2023 Albumin [Mass/Vol] 4.3 g/dL 3.9 - 4.9 g/dL [facility] ALP [Catalytic activity/Vol] 77 U/L 38 - 113 U/L [facility] ALT [Catalytic activity/Vol] 59 U/L High 10 - 54 U/L [facility] Anion gap [Moles/Vol] 14 mmol/L 9 - 18 mmol/L [facility] AST [Catalytic activity/Vol] 48 U/L High 14 - 40 U/L [facility] Bilirubin [Mass/Vol] 0.9 mg/dL 0.2 - 1.3 mg/dL [facility] Calcium [Mass/Vol] 9.3 mg/dL 8.5 - 10.2 mg/dL [facility] Chloride [Moles/Vol] 101 mmol/L 97 - 105 mmol/L [facility] CO2 [Moles/Vol] 26 mmol/L 22 - 30 mmol/L [facility] Creatinine [Mass/Vol] 0.77 mg/dL 0.73 - 1.22 mg/dL [facility] Estimated Glomerular Filtration Rate 99 mL/min/1.73m >=60 mL/min/1.73m [facility] Glucose [Mass/Vol] 135 mg/dL High 74 - 99 mg/dL [facility] Potassium [Moles/Vol] 3.4 mmol/L Low 3.7 - 5.1 mmol/L [facility] Protein [Mass/Vol] 7.8 g/dL 6.3 - 8.0 g/dL [facility] Sodium [Moles/Vol] 141 mmol/L 136 - 144 mmol/L [facility] Urea nitrogen [Mass/Vol] 8 mg/dL Low 9 - 24 mg/dL [facility] Oncology Nurse Navigator-jessica tillman diagnosison 01-07-2023 Oncology Nurse Navigator-initial diagnosis Summary/Preview: Nurse Navigator Note Care Navigation Interaction with patient and unable to reach patient (Attempted to reach patient and voicemail is full. Contacted Dr. Nina Grigsby's office to receive records [phone]) Message: no voicemail available Visit Type: initial [...] for lung cancer from Dr. Nina Grigsby [facility]. On 09/26/21 he underwent a left upper lobectomy wedge resection, completion lobectomy, and lymph node dissection. He received adjuvant chemotherapy with cisplatin and pemetrexed X 4 cycles. Completed on 01/22/22. Radiation therapy 03/25/22-05/01/22. He had progression in August 2022. Initiated pembrolizumab with last treatment in 11/25/22. Faxed request for records to [place] office. Requested images from [facility] and [facility] to be downloaded to PACs. Called multiple times and no voicemail available. India Brody RN Electronic Signatures: India Brody (STAFF N) (Signed 13-Jan-2023 09:37) Authored: Care Navigation, Assessment, Interventions, Acuity/Communication , Summary/Preview Last Updated: 13-Jan-2023 09:37 by India Brody (STAFF N) Normal [facility] Activated partial thrombopla stin time (aPTT) in platelet poor plasma by coagulation aOrdered By: Sapna Angulo on 01-03-2023 aPTT Coag (PPP) [Time] 30.2 s 25.1-36.5 [facility] Alanine aminotransferase [En zymatic activity/volume] in Serum or PlasmaOrdered By: Sapna Angulo on 01-03-2023 ALT [Catalytic activity/Vol] 62 U/L 7-52 [facility] Albumin [Mass/volume] in Ser um or Plasma by Bromocresol green (BCG) dye binding methoOrdered By: aSpna Angulo on 01-03-2023 Albumin BCG dye [Mass/Vol] 4.2 g/dL 3.5-5.7 [facility] Alkaline phosphatase [Enzyma tic activity/volume] in Serum or PlasmaOrdered By: Sapna Angulo on 01-03-2023 ALP [Catalytic activity/Vol] 63 U/L 34-104 [facility] Aspartate aminotransferase [ Enzymatic activity/volume] in Serum or PlasmaOrdered By: Sapna Angulo on 01-03-2023 AST [Catalytic activity/Vol] 32 U/L 13-39 [facility] Basophils Auto (Bld) [#/Vol] Ordered By: Sapna Angulo on 01-03-2023 Basophils (Bld) [#/Vol] 0.0 10*3/uL 0.0-0.2 [facility] Basophils/100 WBC Auto (Bld) Ordered By: Sapna Angulo on 01-03-2023 Basophils/100 WBC (Bld) 0.4 % . [facility] Bilirubin.direct [Mass/volum e] in Serum or PlasmaOrdered By: Sapna Angulo on 01-03-2023 Bilirubin.direct [Mass/Vol] 0.30 mg/dL 0.03-0.18 [facility] Bilirubin.total [Mass/volume ] in Serum or PlasmaOrdered By: Sapna Angulo on 01-03-2023 Bilirubin [Mass/Vol] 1.0 mg/dL 0.3-1.0 [facility] Calcium [Mass/volume] in Ser um or PlasmaOrdered By: Sapna Angulo on 01-03-2023 Calcium [Mass/Vol] 9.6 mg/dL 8.6-10.3 [facility] Carbon dioxide, total [Moles /volume] in Serum or PlasmaOrdered By: Sapna Angulo on 01-03-2023 CO2 [Moles/Vol] 26.8 mmol/L 21.0-31.0 [facility] Chloride [Moles/volume] in S juanpablo or PlasmaOrdered By: Sapna Angulo on 01-03-2023 Chloride [Moles/Vol] 104 mmol/L 98-107 [facility] Creatinine [Mass/volume] in Serum or PlasmaOrdered By: Sapna Angulo on 01-03-2023 Creatinine [Mass/Vol] 0.89 mg/dL 0.70-1.30 [facility] Eosinophils Auto (Bld) [#/Vo l]Ordered By: Sapna Angulo on 01-03-2023 Eosinophils (Bld) [#/Vol] 0.1 10*3/uL 0.0-0.45 [facility] Eosinophils/100 WBC Auto (Bl d)Ordered By: Sapna Angulo on 01-03-2023 Eosinophils/100 WBC (Bld) 1.4 % . [facility] Erythrocyte distribution wid th Auto (RBC) [Ratio]Ordered By: Sapna Angulo 01-03-2023 Erythrocyte distribution width (RBC) [Ratio] 16.7 % 12.0-14.8 [facility] Globulin Calc (S) [Mass/Vol] Ordered By: Sapna Angulo 01-03-2023 Globulin (S) [Mass/Vol] 3.2 g/dL [facility] Glucose [Mass/volume] in Ser um or PlasmaOrdered By: Sapna Angulo on 01-03-2023 Glucose [Mass/Vol] 96 mg/dL 70-100 [facility] Comment on above: ADA recommended refe rence rangeRandom Glucose Reference Range is dependent on time and content of last meal. Glucose of more than 200 mg/dL in a nonstressed, ambulatory subject supports the diagnosis of Diabetes Mellitus. Hematocrit Auto (Bld) [Volum e fraction]Ordered By: Sapna Angulo on 01-03-2023 Hematocrit (Bld) [Volume fraction] 39.0 % 38.8-50.0 [facility] Hemoglobin [Mass/volume] in BloodOrdered By: Sapna Angulo on 01-03-2023 Hemoglobin (Bld) [Mass/Vol] 13.2 g/dL 13.0-17.0 [facility] - CoagulationOrde red By: Sapna Angulo on 01-03-2023 PT Coag (PPP) [Time] 12.1 s 9.0-12.9 [facility] Leukocytes [#/volume] correc nani for nucleated erythrocytes in Blood by Automated counOrdered By: Sapna Angulo on 01-03-2023 WBC corrected for nucl RBC Auto (Bld) [#/Vol] 5.6 10*3/uL 4.1-10.5 [facility] Lymphocytes Auto (Bld) [#/Vo l]Ordered By: Sapna Angulo on 01-03-2023 Lymphocytes (Bld) [#/Vol] 0.9 10*3/uL 1.00-4.8 [facility] Lymphocytes/100 WBC Auto (Bl d)Ordered By: Sapna Angulo on 01-03-2023 Lymphocytes/100 WBC (Bld) 16.1 % . [facility] MCH Auto (RBC) [Entitic mass ]Ordered By: Sapna Angulo on 01-03-2023 MCH (RBC) [Entitic mass] 30.0 pg 27.5-35.2 [facility] MCHC Auto (RBC) [Mass/Vol]Or dered By: Sapna Angulo on 01-03-2023 MCHC (RBC) [Mass/Vol] 33.9 g/dL 32.5-35.6 [facility] MCV Auto (RBC) [Entitic vol] Ordered By: Sapna Angulo on 01-03-2023 MCV (RBC) [Entitic vol] 88.4 fL 83.5-101 [facility] Monocyte distribution width [Entitic volume] in Blood by AutomatedOrdered By: Sapna Angulo on 01-03-2023 Monocyte distribution width Auto (Bld) [Entitic vol] 20.82 % 0.00-20.00 [facility] Comment on above: For adults in ED, MD W > 20.0 may be associated with a higher risk of sepsis during the first 12 hrs of hospital admission Monocytes Auto (Bld) [#/Vol] Ordered By: Sapna Angulo on 01-03-2023 Monocytes (Bld) [#/Vol] 0.7 10*3/uL 0.0-0.8 [facility] Monocytes/100 WBC Auto (Bld) Ordered By: Sapna Angulo on 01-03-2023 Monocytes/100 WBC (Bld) 11.8 % . [facility] Natriuretic peptide B [Mass/ Vol]Ordered By: Sapnagerard Angulo on 01-03-2023 Natriuretic peptide B (Bld) [Mass/Vol] 93.0 pg/mL 5-100 [facility] Neutrophils Auto (Bld) [#/Vo l]Ordered By: Sapna Angulo on 01-03-2023 Neutrophils (Bld) [#/Vol] 3.9 10*3/uL 1.8-7.7 [facility] Neutrophils/100 WBC Auto (Bl d)Ordered By: Sapna Angulo on 01-03-2023 Neutrophils/100 WBC (Bld) 70.3 % . [facility] No Panel InformationOrdered By: Sapna Angulo on 01-03-2023 D-Dimer Quantitative (PE/DVT) 374 ng/mL 0-243 [facility] Comment on above: The reference range [...] conditions. Estimated GFR (CKD-EPI) > 60.0 mL/Min [facility] Creatinine Clearance (Chem 68.76 [facility] Nucleated erythrocytes [Pres ence] in Blood by Automated countOrdered By: Sapna Angulo on 01-03-2023 Nucleated RBC Auto Ql (Bld) 0.2 /100{WBC} 0-0.5 [facility] Platelet mean volume Auto (B ld) [Entitic vol]Ordered By: Sapna Angulo on 01-03-2023 Platelet mean volume (Bld) [Entitic vol] 9.6 fL 6.6-10.1 [facility] Platelet poor plasma interna tional normalized ratio (INR) by coagulation assay (relatOrdered By: Sapna Angulo on 01-03-2023 INR Coag (PPP) [Relative time] 1.0 {INR} [facility] Comment on above: INR Therapeutic Rang [...] 01-03-2023 Platelets (Bld) [#/Vol] 148 10*3/uL 150-450 [facility] Potassium [Moles/volume] in Serum or PlasmaOrdered By: Sapna Angulo on 01-03-2023 Potassium [Moles/Vol] 4.0 mmol/L 3.5-5.1 [facility] Protein [Mass/volume] in Ser um or PlasmaOrdered By: Sapna Angulo on 01-03-2023 Protein [Mass/Vol] 7.4 g/dL 6.4-8.9 [facility] RBC Auto (Bld) [#/Vol]Ordere d By: Sapna Angulo on 01-03-2023 RBC (Bld) [#/Vol] 4.41 10*6/uL 3.90-5.60 [facility] Serum or plasma albumin/glob ulin mass ratioOrdered By: Sapna Angulo on 01-03-2023 Albumin/Globulin [Mass ratio] 1.3 {ratio} [facility] Serum or plasma anion gap de terminationOrdered By: Sapna Angulo on 01-03-2023 Anion gap [Moles/Vol] 11.2 mmol/L 6.0-15.0 [facility] Serum or plasma non-glucuron idated bilirubin measurement (mass/volume)Ordered By: Sapna Angulo on 01-03-2023 Bilirubin.indirect [Mass/Vol] 0.7 mg/dL [facility] Sodium [Moles/volume] in Ser um or PlasmaOrdered By: Sapna Angulo on 01-03-2023 Sodium [Moles/Vol] 138 mmol/L 136-145 [facility] Troponin I.cardiac [Mass/vol ume] in Serum or Plasma by Detection limit <= 0.01 ng/Ordered By: Sapna Angulo on 01-03-2023 Troponin I.cardiac DL <= 0.01 ng/mL [Mass/Vol] 11.0 pg/mL 0.0-20.0 [facility] Urea nitrogen [Mass/volume] in Serum or PlasmaOrdered By: Sapna Angulo on 01-03-2023 Urea nitrogen [Mass/Vol] 24 mg/dL 7-25 [facility] WBC Auto (Bld) [#/Vol]Ordere d By: Sapna Angulo on 01-03-2023 WBC (Bld) [#/Vol] 5.6 10*3/uL 4.1-10.5 [facility] Comprehensive metabolic 2000 panelon 11-25-2022 Albumin [Mass/Vol] 3.9 g/dL 3.9 - 4.9 g/dL [facility] ALP [Catalytic activity/Vol] 58 U/L 38 - 113 U/L [facility] ALT [Catalytic activity/Vol] 248 U/L High 10 - 54 U/L [facility] Anion gap [Moles/Vol] 8 mmol/L Low 9 - 18 mmol/L [facility] AST [Catalytic activity/Vol] 142 U/L High 14 - 40 U/L [facility] Bilirubin [Mass/Vol] 1.1 mg/dL 0.2 - 1.3 mg/dL [facility] Calcium [Mass/Vol] 9.7 mg/dL 8.5 - 10.2 mg/dL [facility] Chloride [Moles/Vol] 96 mmol/L Low 97 - 105 mmol/L [facility] CO2 [Moles/Vol] 26 mmol/L 22 - 30 mmol/L [facility] Creatinine [Mass/Vol] 0.97 mg/dL 0.73 - 1.22 mg/dL [facility] Estimated Glomerular Filtration Rate 87 mL/min/1.73m >=60 mL/min/1.73m [facility] Glucose [Mass/Vol] 159 mg/dL High 74 - 99 mg/dL [facility] Potassium [Moles/Vol] 3.6 mmol/L Low 3.7 - 5.1 mmol/L [facility] Protein [Mass/Vol] 7.5 g/dL 6.3 - 8.0 g/dL [facility] Sodium [Moles/Vol] 130 mmol/L Low 136 - 144 mmol/L [facility] Urea nitrogen [Mass/Vol] 15 mg/dL 9 - 24 mg/dL [facility] LD LACTATE DEHYDROon 023 LDH [Catalytic activity/Vol] 291 U/L High 135 - 225 U/L [facility] CBC W Auto Differential pane l (Bld)on 10-31-2022 Basophils (Bld) [#/Vol] <0.11 k/uL [facility] Basophils/100 WBC (Bld) 0.4 % [facility] Differential cell count method Nom (Bld) Auto [facility] Eosinophils (Bld) [#/Vol] 0.17 10*3/uL <0.46 k/uL [facility] Eosinophils/100 WBC (Bld) 3.7 % [facility] Erythrocyte distribution width (RBC) [Ratio] 14.7 % 11.5 - 15.0 % [facility] Hematocrit (Bld) [Volume fraction] 32.0 % Low 39.0 - 51.0 % [facility] Hemoglobin (Bld) [Mass/Vol] 10.8 g/dL Low 13.0 - 17.0 g/dL [facility] Immature granulocytes (Bld) [#/Vol] <0.10 k/uL [facility] Immature granulocytes/100 WBC (Bld) 0.2 % [facility] Lymphocytes (Bld) [#/Vol] 0.59 10*3/uL Low 1.00 - 4.00 k/uL [facility] Lymphocytes/100 WBC (Bld) 12.9 % [facility] MCH (RBC) [Entitic mass] 30.3 pg 26.0 - 34.0 pg [facility] MCHC (RBC) [Mass/Vol] 33.8 g/dL 30.5 - 36.0 g/dL [facility] MCV (RBC) [Entitic vol] 89.6 fL 80.0 - 100.0 fL [facility] Monocytes (Bld) [#/Vol] 0.87 10*3/uL High <0.87 k/uL [facility] Monocytes/100 WBC (Bld) 19.0 % [facility] Neutrophils (Bld) [#/Vol] 2.92 10*3/uL 1.45 - 7.50 k/uL [facility] Neutrophils/100 WBC (Bld) 63.8 % [facility] Nucleated RBC (Bld) [#/Vol] <0.01 k/uL [facility] Nucleated RBC/100 WBC (Bld) [Ratio] 0.0 /100 WBC [facility] Platelet mean volume (Bld) [Entitic vol] 10.2 fL 9.0 - 12.7 fL [facility] Platelets (Bld) [#/Vol] 247 10*3/uL 150 - 400 k/uL [facility] RBC (Bld) [#/Vol] 3.57 10*6/uL Low 4.20 - 6.00 m/uL [facility] WBC (Bld) [#/Vol] 4.58 10*3/uL 3.70 - 11.00 k/u L [facility] Comprehensive metabolic 2000 panelon 10-31-2022 Albumin [Mass/Vol] 4.1 g/dL 3.9 - 4.9 g/dL [facility] ALP [Catalytic activity/Vol] 54 U/L 38 - 113 U/L [facility] ALT [Catalytic activity/Vol] 17 U/L 10 - 54 U/L [facility] Anion gap [Moles/Vol] 8 mmol/L Low 9 - 18 mmol/L [facility] AST [Catalytic activity/Vol] 21 U/L 14 - 40 U/L [facility] Bilirubin [Mass/Vol] 0.7 mg/dL 0.2 - 1.3 mg/dL [facility] Calcium [Mass/Vol] 9.4 mg/dL 8.5 - 10.2 mg/dL [facility] Chloride [Moles/Vol] 100 mmol/L 97 - 105 mmol/L [facility] CO2 [Moles/Vol] 25 mmol/L 22 - 30 mmol/L [facility] Creatinine [Mass/Vol] 1.08 mg/dL 0.73 - 1.22 mg/dL [facility] Estimated Glomerular Filtration Rate 76 mL/min/1.73m >=60 mL/min/1.73m [facility] Glucose [Mass/Vol] 97 mg/dL 74 - 99 mg/dL [facility] Potassium [Moles/Vol] 3.7 mmol/L 3.7 - 5.1 mmol/L [facility] Protein [Mass/Vol] 7.1 g/dL 6.3 - 8.0 g/dL [facility] Sodium [Moles/Vol] 133 mmol/L Low 136 - 144 mmol/L [facility] Urea nitrogen [Mass/Vol] 20 mg/dL 9 - 24 mg/dL [facility] Orders Onlyon 10-23-2022 Orders Only [id number] Cristal Gu 1955 M Date Provider Department Center 10/23/2022 CHAYITO JONAS [facility] No family history on file Normal [facility] CBC W Auto Differential pane l (Bld)on 10-21-2022 Basophils (Bld) [#/Vol] 0.03 10*3/uL <0.11 k/uL [facility] Basophils/100 WBC (Bld) 0.5 % [facility] Differential cell count method Nom (Bld) Auto [facility] Eosinophils (Bld) [#/Vol] 0.19 10*3/uL <0.46 k/uL [facility] Eosinophils/100 WBC (Bld) 2.9 % [facility] Erythrocyte distribution width (RBC) [Ratio] 15.0 % 11.5 - 15.0 % [facility] Hematocrit (Bld) [Volume fraction] 39.7 % 39.0 - 51.0 % [facility] Hemoglobin (Bld) [Mass/Vol] 13.3 g/dL 13.0 - 17.0 g/dL [facility] Immature granulocytes (Bld) [#/Vol] 0.05 10*3/uL <0.10 k/uL [facility] Immature granulocytes/100 WBC (Bld) 0.8 % [facility] Lymphocytes (Bld) [#/Vol] 0.95 10*3/uL Low 1.00 - 4.00 k/uL [facility] Lymphocytes/100 WBC (Bld) 14.6 % [facility] MCH (RBC) [Entitic mass] 30.6 pg 26.0 - 34.0 pg [facility] MCHC (RBC) [Mass/Vol] 33.5 g/dL 30.5 - 36.0 g/dL [facility] MCV (RBC) [Entitic vol] 91.3 fL 80.0 - 100.0 fL [facility] Monocytes (Bld) [#/Vol] 0.62 10*3/uL <0.87 k/uL [facility] Monocytes/100 WBC (Bld) 9.5 % [facility] Neutrophils (Bld) [#/Vol] 4.66 10*3/uL 1.45 - 7.50 k/uL [facility] Neutrophils/100 WBC (Bld) 71.7 % [facility] Nucleated RBC (Bld) [#/Vol] <0.01 k/uL [facility] Nucleated RBC/100 WBC (Bld) [Ratio] 0.0 /100 WBC [facility] Platelet mean volume (Bld) [Entitic vol] 10.1 fL 9.0 - 12.7 fL [facility] Platelets (Bld) [#/Vol] 237 10*3/uL 150 - 400 k/uL [facility] RBC (Bld) [#/Vol] 4.35 10*6/uL 4.20 - 6.00 m/uL [facility] WBC (Bld) [#/Vol] 6.50 10*3/uL 3.70 - 11.00 k/u L [facility] Comprehensive metabolic 2000 panelon 10-21-2022 Albumin [Mass/Vol] 4.4 g/dL 3.9 - 4.9 g/dL [facility] ALP [Catalytic activity/Vol] 55 U/L 38 - 113 U/L [facility] ALT [Catalytic activity/Vol] 22 U/L 10 - 54 U/L [facility] Anion gap [Moles/Vol] 10 mmol/L 9 - 18 mmol/L [facility] AST [Catalytic activity/Vol] 20 U/L 14 - 40 U/L [facility] Bilirubin [Mass/Vol] 0.7 mg/dL 0.2 - 1.3 mg/dL [facility] Calcium [Mass/Vol] 10.2 mg/dL 8.5 - 10.2 mg/dL [facility] Chloride [Moles/Vol] 98 mmol/L 97 - 105 mmol/L [facility] CO2 [Moles/Vol] 27 mmol/L 22 - 30 mmol/L [facility] Creatinine [Mass/Vol] 1.04 mg/dL 0.73 - 1.22 mg/dL [facility] Estimated Glomerular Filtration Rate 80 mL/min/1.73m >=60 mL/min/1.73m [facility] Glucose [Mass/Vol] 145 mg/dL High 74 - 99 mg/dL [facility] Potassium [Moles/Vol] 4.2 mmol/L 3.7 - 5.1 mmol/L [facility] Protein [Mass/Vol] 7.8 g/dL 6.3 - 8.0 g/dL [facility] Sodium [Moles/Vol] 135 mmol/L Low 136 - 144 mmol/L [facility] Urea nitrogen [Mass/Vol] 21 mg/dL 9 - 24 mg/dL [facility] LD LACTATE DEHYDROon 023 LDH [Catalytic activity/Vol] 183 U/L 135 - 225 U/L [facility] XR CHEST 1 Von 10-10-2022 XR CHEST [...] differentiate infiltrate from a mass. Normal [facility] XR SHOULDER LT 2V or >on [...] LOVE ALBERTS Date: 2022-10-10 11:46 Normal [facility] LIPID PROFILEon 09-19-2022 CHOL-HDL RATIO NORM SEE BELOW Normal [facility] Comment on above: Result Comment: 3.3 - 4.4 LOW RISK 4.4 - 7.1 AVERAGE RISK 7.1 - 11.0 MODERATE RISK >11.0 HIGH RISK Performed By: #### L IPID #### [facility] [address] [address] [address] Usama Hobbs Cholesterol [Mass/Vol] 104 mg/dL Normal <=200 [facility] Comment on above: Performed By: #### L IPID #### [facility] [address] [address] [address] Usama Hobbs Cholesterol in HDL [Mass/Vol] 36 mg/dL Critically low 40-60 [facility] Comment on above: Performed By: #### L IPID #### [facility] [address] [address] [address] Usama Hobbs Cholesterol in LDL [Mass/Vol] 59.6 mg/dL Normal Comment on above: Performed By: #### L IPID #### [facility] [address] [address] [address] Usama Hobbs Cholesterol.total/Ch olesterol in HDL [Mass ratio] 2.9 {ratio} Normal Comment on above: Performed By: #### L IPID #### [facility] [address] [address] [address] Usama Hobbs HDL NORMAL > or = 60 mg/dl - LOW CARDIOVASCULAR RISK <40 mg/dl - HIGH CARDIOVASCULAR RISK Normal Comment on above: Performed By: #### L IPID #### [facility] [address] [address] [address] Usama Hobbs LDL CALC NORMAL SEE BELOW Normal Comment on above: Result Comment: <100 mg/dl OPTIMAL 100 - 129 mg/dl NEAR OR ABOVE OPTIMAL 130 - 159 mg/dl BORDERLINE HIGH 160 - 189 mg/dl HIGH >190 mg/dl VERY HIGH Performed By: #### L IPID #### [facility] [address] [address] [address] Usama Hobbs Triglyceride [Mass/Vol] 42 mg/dL Normal <=150 Comment on above: Performed By: #### L IPID #### [facility] [id number] Usama Hobbs VLDL CALC 8.4 mg/dL Normal Comment on above: Performed By: #### L IPID #### [facility] [address] [place], [place] [id number] Dr. Usama Hobbs Office Visiton 09-18-2022 Follow-up visit [id number] Cristal Gu Sr. 1955 M Date Provider Department Center 09/18/2022 JONATHAN LI [facility] No family history on file Level of Service:32690 [place] OFFICE/OUTPATIENT ESTABLISHED MOD MDM 30-39 MIN () Reason for Visit and Comments: Coronary Artery Disease [187] Peripheral Vascular Disease [458] Carotid Stenosis [Other] Hypertension [209095] Normal [facility] CBC W Auto Differential pane l (Bld)on 06-25-2022 Basophils (Bld) [#/Vol] <0.11 k/uL [facility] Basophils/100 WBC (Bld) 0.4 % [facility] Differential cell count method Nom (Bld) Auto [facility] Eosinophils (Bld) [#/Vol] 0.03 10*3/uL <0.46 k/uL [facility] Eosinophils/100 WBC (Bld) 0.6 % [facility] Erythrocyte distribution width (RBC) [Ratio] 14.1 % 11.5 - 15.0 % [facility] Hematocrit (Bld) [Volume fraction] 34.9 % Low 39.0 - 51.0 % [facility] Hemoglobin (Bld) [Mass/Vol] 12.5 g/dL Low 13.0 - 17.0 g/dL [facility] Immature granulocytes (Bld) [#/Vol] 0.03 10*3/uL <0.10 k/uL [facility] Immature granulocytes/100 WBC (Bld) 0.6 % [facility] Lymphocytes (Bld) [#/Vol] 0.75 10*3/uL Low 1.00 - 4.00 k/uL [facility] Lymphocytes/100 WBC (Bld) 14.0 % [facility] MCH (RBC) [Entitic mass] 32.9 pg 26.0 - 34.0 pg [facility] MCHC (RBC) [Mass/Vol] 35.8 g/dL 30.5 - 36.0 g/dL [facility] MCV (RBC) [Entitic vol] 91.8 fL 80.0 - 100.0 fL [facility] Monocytes (Bld) [#/Vol] 0.62 10*3/uL <0.87 k/uL [facility] Monocytes/100 WBC (Bld) 11.6 % [facility] Neutrophils (Bld) [#/Vol] 3.89 10*3/uL 1.45 - 7.50 k/uL [facility] Neutrophils/100 WBC (Bld) 72.8 % [facility] Nucleated RBC (Bld) [#/Vol] <0.01 k/uL [facility] Nucleated RBC/100 WBC (Bld) [Ratio] 0.0 /100 WBC [facility] Platelet mean volume (Bld) [Entitic vol] 9.8 fL 9.0 - 12.7 fL [facility] Platelets (Bld) [#/Vol] 208 10*3/uL 150 - 400 k/uL [facility] RBC (Bld) [#/Vol] 3.80 10*6/uL Low 4.20 - 6.00 m/uL [facility] WBC (Bld) [#/Vol] 5.34 10*3/uL 3.70 - 11.00 k/u L [facility] Comprehensive metabolic 2000 panelon 06-25-2022 Albumin [Mass/Vol] 4.4 g/dL 3.9 - 4.9 g/dL [facility] ALP [Catalytic activity/Vol] 72 U/L 38 - 113 U/L [facility] ALT [Catalytic activity/Vol] 27 U/L 10 - 54 U/L [facility] Anion gap [Moles/Vol] 12 mmol/L 9 - 18 mmol/L [facility] AST [Catalytic activity/Vol] 32 U/L 14 - 40 U/L [facility] Bilirubin [Mass/Vol] 0.7 mg/dL 0.2 - 1.3 mg/dL [facility] Calcium [Mass/Vol] 9.6 mg/dL 8.5 - 10.2 mg/dL [facility] Chloride [Moles/Vol] 97 mmol/L 97 - 105 mmol/L [facility] CO2 [Moles/Vol] 26 mmol/L 22 - 30 mmol/L [facility] Creatinine [Mass/Vol] 0.75 mg/dL 0.73 - 1.22 mg/dL [facility] Estimated Glomerular Filtration Rate 100 mL/min/1.73m >=60 mL/min/1.73m [facility] Glucose [Mass/Vol] 111 mg/dL High 74 - 99 mg/dL [facility] Potassium [Moles/Vol] 3.8 mmol/L 3.7 - 5.1 mmol/L [facility] Protein [Mass/Vol] 7.2 g/dL 6.3 - 8.0 g/dL [facility] Sodium [Moles/Vol] 135 mmol/L Low 136 - 144 mmol/L [facility] Urea nitrogen [Mass/Vol] 11 mg/dL 9 - 24 mg/dL [facility] CT CHEST W IVCONon 2 [facility] XR CHEST 2V FRONTAL/LATon [facility] MRI LSPINE WO W CONon 2021 MRI [...] by: BRANDON HENRY Date: 2022-05-23 19:51 Normal XR LSPINE MIN 4 VIEWSon 04-20 XR [...] by: TRUDY GUTIERREZ Date: 2022-05-01 17:27 Normal [facility] BONE SC WH BODYon MD BONE [place] [facility] BODY EXAMINATION: MD BONE [facility] BODY HISTORY: Primary malignant neoplasm of [...] by: BRANDON HENRY Date: 2022-04-12 21:44 Normal US CAROTID ART BILon US CAROTID ART [...] BRANDON HENRY Date: 2022-03-22 17:14 Normal [facility] PRBC LEUKOREDUCEDon 02-11-20 ABO and Rh group Nom (Bld) Cross Match Result Compatible Unit Blood Type A Pos Unit Number [id number] Status Information Transfused Product ID Red Blood Cells Product Code [id number] Cross Match Result Compatible Unit Blood Type A Pos Unit Number [id number] Status Information Transfused Product ID Red Blood Cells Product Code [id number] Normal [facility] Comment on above: Performed By: #### P SAD #### [facility] [address] [place] [address] Dr. Usama Hobbs ABO RH RETYPEon 02-08-2022 ABO and Rh group Nom (Bld) DONE Normal [facility] Comment on above: Performed By: #### R ETYPE #### [facility] [address] [place] [address] Dr. Usama Hobbs LD LACTATE DEHYDROon 022 LDH [Catalytic activity/Vol] 186 U/L 135 - 225 U/L [facility] TYPE AND SCREENon 02-08-2022 TYPE AND SCREEN Negative Normal Comment on above: Performed By: #### P SAD #### [facility] [address] [place] [address] Dr. Usama Hobbs HEMOGRAM AND PLATELon 2021 Hematocrit (Bld) [Volume fraction] 21.0 % Critically low 42.0-54.0 [facility] Comment on above: Result Comment: dr haider marcos transfusionT&S ordered Performed By: #### B SECRETARY, CMP #### [facility] [address] [place] [address] Dr. Usama Hobbs Hemoglobin (Bld) [Mass/Vol] 7.3 g/dL Critically low 14.0-18.0 [facility] Comment on above: Performed By: #### B SECRETARY, CMP #### [facility] [address] [place] [address] Dr. Usama Hobbs MCH (RBC) [Entitic mass] 31.7 pg Normal 25.9-34.0 [facility] Comment on above: Performed By: #### B SECRETARY, CMP #### [facility] [address] [place] [address] Dr. Usama Hobbs MCHC (RBC) [Mass/Vol] 34.8 g/dL Normal 29.9-35.2 [facility] Comment on above: Performed By: #### B SECRETARY, CMP #### [facility] [address] [address] [address] Usama Hobbs MCV (RBC) [Entitic vol] 91.3 fL Normal 80.0-94.0 Comment on above: Performed By: #### B SECRETARY, CMP #### [facility] [address] [address] [address] Usama Hobbs PLT 89 103/ul Critically low 150-450 [facility] Comment on above: Performed By: #### B SECRETARY, CMP #### [facility] [address] [address] [address] Usama Hobbs RBC 2.30 106/ul Critically low 4.70-6.10 [facility] Comment on above: Performed By: #### B SECRETARY, CMP #### [facility] [address] [place] [address] Dr. Usama Hobbs WBC 2.0 103/ul Critically low 4.0-11.0 [facility] Comment on above: Performed By: #### B SECRETARY, CMP #### [facility] [address] [place] [address] Dr. Usama Hobbs RETIC COUNTon 02-07-2022 Reticulocytes (Bld) [#/Vol] 0.31700 10*3/uL 0.018 - 0.100 M/uL [facility] Reticulocytes (Bld) [#/Vol]o n 02-07-2022 Reticulocytes/100 RBC (Bld) 2.3 % High 0.4 - 2.0 % [facility] XR CHEST 2V FRONTAL/LATon [facility] BNPon 12-07-2021 Natriuretic peptide B (Bld) [Mass/Vol] 140.0 pg/mL Normal <=900.0 [facility] Comment on above: Performed By: #### P SAD #### [facility] [address] [place] [address] Dr. Usama Hobbs CBC AUTO DIFFon 12-07-2021 BASO # 0.0 103/ul Normal 0.0-0.1 Comment on above: Performed By: #### B SECRETARY, CMP #### [facility] [address] [place] [address] Dr. Usama Hobbs Basophils/100 WBC (Bld) 0.2 % Normal 0.2-2.0 Comment on above: Performed By: #### B SECRETARY, CMP #### [facility] [address] [place] [address] Dr. Usama Hobbs EO # 0.1 103/ul Normal 0.0-0.7 Comment on above: Performed By: #### B SECRETARY, CMP #### [facility] [address] [place] [address] Dr. Usama Hobbs Eosinophils/100 WBC (Bld) 2.0 % Normal 0.9-7.0 Comment on above: Performed By: #### B SECRETARY, CMP #### [facility] [address] [place] [address] Dr. Usama Hobbs Erythrocyte distribution width (RBC) [Ratio] 12.9 % Normal 11.0-15.0 Comment on above: Performed By: #### B SECRETARY, CMP #### [facility] [address] [place] [address] Dr. Usama Hobbs Hematocrit (Bld) [Volume fraction] 32.6 % Critically low 42.0-54.0 Comment on above: Performed By: #### B SECRETARY, CMP #### [facility] [address] [place] [address] Dr. Usama Hobbs Hemoglobin (Bld) [Mass/Vol] 11.0 g/dL Critically low 14.0-18.0 Comment on above: Performed By: #### B SECRETARY, CMP #### [facility] [address] [place] [address] Dr. Usama Hobbs IG # 0.02 10e3/ul Normal 0.00-0.03 Comment on above: Performed By: #### B SECRETARY, CMP #### [facility] [address] [place] [address] Dr. Usama Hobbs IG % 0.4 % Normal 0.0-0.5 Comment on above: Performed By: #### B SECRETARY, CMP #### [facility] [address] [place] [address] Dr. Usama Hobbs LYMPH # 0.6 103/ul Critically low 1.2-3.8 Comment on above: Performed By: #### B SECRETARY, CMP #### [facility] [address] [place] [address] Dr. Usama Hobbs Lymphocytes/100 WBC (Bld) 12.9 % Critically low 20.5-60.0 Comment on above: Performed By: #### B SECRETARY, CMP #### [facility] [address] [place] [address] Dr. Usama Hobbs MANUAL DIFF REQ NO Normal Comment on above: Performed By: #### B SECRETARY, CMP #### [facility] [address] [place] [address] Dr. Usama Hobbs MCH (RBC) [Entitic mass] 30.1 pg Normal 25.9-34.0 Comment on above: Performed By: #### B SECRETARY, CMP #### [facility] [address] [place] [address] Dr. Usama Hobbs MCHC (RBC) [Mass/Vol] 33.7 g/dL Normal 29.9-35.2 Comment on above: Performed By: #### B SECRETARY, CMP #### [facility] [address] [place] [address] Dr. Usama Hobbs MCV (RBC) [Entitic vol] 89.1 fL Normal 80.0-94.0 Comment on above: Performed By: #### B SECRETARY, CMP #### [facility] [address] [place] [address] Dr. Usama Hobbs MONO # 0.3 103/ul Normal 0.3-0.8 Comment on above: Performed By: #### B SECRETARY, CMP #### [facility] [address] [place] [address] Dr. Usama Hobbs Monocytes/100 WBC (Bld) 5.1 % Normal 1.7-12.0 Comment on above: Performed By: #### B SECRETARY, CMP #### [facility] [address] [place] [address] Dr. Usama Hobbs NEUT # 3.9 103/ul Normal 1.4-6.5 Comment on above: Performed By: #### B SECRETARY, CMP #### [facility] [address] [place] [address] Dr. Usama Hobbs Neutrophils/100 WBC (Bld) 79.4 % Critically high 43.0-75.0 Comment on above: Performed By: #### B SECRETARY, CMP #### [facility] [address] [place] [address] Dr. Usama Hobbs Platelet mean volume (Bld) [Entitic vol] 10.9 fL Normal 9.5-13.5 Comment on above: Performed By: #### B SECRETARY, CMP #### [facility] [address] [place] [address] Dr. Usama Hobbs PLT 182 103/ul Normal 150-450 [facility] Comment on above: Performed By: #### B SECRETARY, CMP #### [facility] [address] [place] [address] Dr. Usama Hobbs RBC 3.66 106/ul Critically low 4.70-6.10 [facility] Comment on above: Performed By: #### B SECRETARY, CMP #### [facility] [address] [place] [address] Dr. Usama Hbobs WBC 4.9 103/ul Normal 4.0-11.0 [facility] Comment on above: Performed By: #### B SECRETARY, CMP #### [facility] [address] [place] [address] Dr. Usama Hobbs TSHon 12-07-2021 TSH 1.474 uIU/mL Normal 0.358-3.740 [facility] Comment on above: Performed By: #### P SAD #### [facility] [address] [place] [address] Dr. Usama Hobbs TSH RANGE SEE BELOW Normal [facility] Comment on above: Result Comment: <0.3 4 UIU/ml HYPERTHYROID 0.34-5.60 UIU/ml EUTHYROID >5.60 UIU/ml HYPOTHYROID Performed By: #### P SAD #### [facility] [address] [address] [address] Usama Hobbs URIC ACID BLOODon 11-26-2021 Urate [Mass/Vol] 7.0 mg/dL 4.0 - 8.1 mg/dL [facility] Basic metabolic 2000 panelon 11-21-2021 Anion gap [Moles/Vol] 12 mmol/L 9 - 18 mmol/L [facility] Calcium [Mass/Vol] 9.2 mg/dL 8.5 - 10.2 mg/dL [facility] Chloride [Moles/Vol] 102 mmol/L 97 - 105 mmol/L [facility] CO2 [Moles/Vol] 25 mmol/L 22 - 30 mmol/L [facility] Creatinine [Mass/Vol] 1.86 mg/dL High 0.73 - 1.22 mg/dL [facility] Estimated Glomerular Filtration Rate 40 mL/min/1.73m Low >=60 mL/min/1.73m [facility] Glucose [Mass/Vol] 87 mg/dL 74 - 99 mg/dL [facility] Potassium [Moles/Vol] 3.7 mmol/L 3.7 - 5.1 mmol/L [facility] Sodium [Moles/Vol] 139 mmol/L 136 - 144 mmol/L [facility] Urea nitrogen [Mass/Vol] 29 mg/dL High 9 - 24 mg/dL [facility] Basic metabolic 2000 panelon 11-19-2021 Anion gap [Moles/Vol] 12 mmol/L 9 - 18 mmol/L [facility] Calcium [Mass/Vol] 9.2 mg/dL 8.5 - 10.2 mg/dL [facility] Chloride [Moles/Vol] 104 mmol/L 97 - 105 mmol/L [facility] CO2 [Moles/Vol] 24 mmol/L 22 - 30 mmol/L [facility] Creatinine [Mass/Vol] 2.09 mg/dL High 0.73 - 1.22 mg/dL [facility] Estimated Glomerular Filtration Rate 35 mL/min/1.73m Low >=60 mL/min/1.73m [facility] Glucose [Mass/Vol] 79 mg/dL 74 - 99 mg/dL [facility] Potassium [Moles/Vol] 3.6 mmol/L Low 3.7 - 5.1 mmol/L [facility] Sodium [Moles/Vol] 140 mmol/L 136 - 144 mmol/L [facility] Urea nitrogen [Mass/Vol] 27 mg/dL High 9 - 24 mg/dL [facility] BNPon 11-18-2021 Natriuretic peptide B (Bld) [Mass/Vol] 2644.0 pg/mL Critically high <=900.0 [facility] Comment on above: Performed By: #### B SECRETARY, CMP #### [facility] [address] [place] [address] Dr. Usama Hobbs CBC W MANUAL DIFFon 11-19-19 22 ATYPICAL LYMPH # Normal Comment on above: Performed By: #### C LUIS #### [facility] [address] [place] [address] Dr. Usama Hobbs ATYPICAL LYMPH % Normal Comment on above: Performed By: #### C LUIS #### [facility] [address] [place] [address] Dr. Usama Hobbs BAND # 0.0 103/ul Normal 0.0-0.3 [facility] Comment on above: Performed By: #### C LUIS #### [facility] [address] [place] [address] Dr. Usama Hobbs BAND % 2 % Normal 0-5 [facility] Comment on above: Performed By: #### C BCMAN #### [facility] [address] [place] [address] Dr. Usama Hobbs BASOM # 0.00 103/ul Normal 0.00-0.10 [facility] Comment on above: Performed By: #### C BCANATOLY #### [facility] [address] [place] [address] Dr. Usama Hobbs BASOM % 0.0 % Critically low 0.2-2.0 [facility] Comment on above: Performed By: #### C BCANATOLY #### [facility] [address] [address] [address] Usama Hobbs BLAST # Normal Comment on above: Performed By: #### C BCANATOLY #### [facility] [address] [place] [address] Dr. Usama Hobbs BLAST % Normal Comment on above: Performed By: #### C BCANATOLY #### [facility] [address] [place] [address] Dr. Usama Hobbs CORRECTED WBC Normal 4.0-11.0 Comment on above: Performed By: #### C BCANATOLY #### [facility] [address] [place] [address] Dr. Usama Hobbs EOS # 0.10 103/ul Normal 0.00-0.70 Comment on above: Performed By: #### C LUIS #### [facility] [address] [place] [address] Dr. Usama Hobbs EOS% 5.0 % Normal 0.9-7.0 Comment on above: Performed By: #### C LUIS #### [facility] [address] [place] [address] Dr. Usama Hobbs HCT 28.8 % Critically low 42.0-54.0 Comment on above: Performed By: #### C LUIS #### [facility] [address] [place] [address] Dr. Usama Hobbs HGB 9.4 g/dl Critically low 14.0-18.0 Comment on above: Performed By: #### C BCANATOLY #### [facility] [address] [place] [address] Dr. Usama Hobbs LYMPHM # 0.71 103/ul Critically low 1.20-3.80 Comment on above: Performed By: #### C BCANATOLY #### [facility] [address] [place] [address] Dr. Usama Hobbs LYMPHM% 34.0 % Normal 20.5-60.0 Comment on above: Performed By: #### C BCANATOLY #### [facility] [address] [address] [address] Usama Hobbs MCH 30.0 pg Normal 25.9-34.0 Comment on above: Performed By: #### C LUIS #### [facility] [address] [address] [address] Usama Hobbs MCHC 32.6 g/dl Normal 29.9-35.2 [facility] Comment on above: Performed By: #### C LUIS #### [facility] [address] [place] [address] Dr. Usama Hobbs MCV 92.0 fL Normal 80.0-94.0 Comment on above: Performed By: #### C LUIS #### [facility] [address] [place] [address] Dr. Usama Hobbs METAMYELOCYTE # Normal Comment on above: Performed By: #### C LUIS #### [facility] [address] [place] [address] Dr. Usama Hobbs METAMYELOCYTE % Normal Comment on above: Performed By: #### C LUIS #### [facility] [address] [place] [address] Dr. Usama Hobbs MONOM# 0.10 103/ul Critically low 0.30-0.80 Comment on above: Performed By: #### C LUIS #### [facility] [address] [place] [address] Dr. Usama Hobbs MONOM% 5.0 % Normal 1.7-12.0 [facility] Comment on above: Performed By: #### C LUIS #### [facility] [address] [place] [address] Dr. Usama Hobbs MPV 10.7 fL Normal 9.5-13.5 Comment on above: Performed By: #### C LUIS #### [facility] [address] [place] [address] Dr. Usama Hobbs MYELOCYTE # Normal [facility] Comment on above: Performed By: #### C LUIS #### [facility] [address] [address] [address] Usama Hobbs MYELOCYTE % Normal Comment on above: Performed By: #### C LUIS #### [facility] [address] [address] [address] Usama Hobbs NRBC Normal Comment on above: Performed By: #### C LUIS #### [facility] [address] [address] [address] Usama Hobbs PLT 149 103/ul Critically low 150-450 Comment on above: Performed By: #### C LUIS #### [facility] [address] [place] [address] Dr. Usama Hobbs RBC 3.13 106/ul Critically low 4.70-6.10 Comment on above: Performed By: #### C LUIS #### [facility] [address] [place] [address] Dr. Usama Hobbs RDW 12.3 % Normal 11.0-15.0 Comment on above: Performed By: #### C LUIS #### [facility] [address] [place] [address] Dr. Usama Hobbs SEG # 1.13 103/ul Critically low 1.40-6.50 Comment on above: Performed By: #### C LUIS #### [facility] [address] [place] [address] Dr. Usama Hobbs SEG % 54.0 % Normal 43.0-75.0 Comment on above: Performed By: #### C BCANATOLY #### [facility] [address] [place] [address] Dr. Usama Hobbs WBC 2.1 103/ul Critically low 4.0-11.0 Comment on above: Performed By: #### C BCANATOLY #### [facility] [address] [place] [address] Dr. Usama Hobbs CULTURE SPUTUMon 11-18-2021 CULTURE SPUTUM Culture Observations: Normal respiratory callie also seen Isolate 1 Adwoa Albicans Growth of Normal [facility] Comment on above: Performed By: #### P SAD #### [facility] [address] [address] [address] Usama Hobbs PROF 14(COMP METB)on 022 Albumin [Mass/Vol] 2.8 g/dL Critically low 3.4-5.0 [facility] Comment on above: Performed By: #### B SECRETARY, CMP #### [facility] [address] [place] [address] Dr. Usama Hobbs Albumin/Globulin [Mass ratio] 0.8 {ratio} Normal Comment on above: Performed By: #### B SECRETARY, CMP #### [facility] [address] [place] [address] Dr. Usama Hobbs ALP [Catalytic activity/Vol] 56 U/L Normal 46-116 Comment on above: Performed By: #### B SECRETARY, CMP #### [facility] [address] [place] [address] Dr. Usama Hobbs ALT [Catalytic activity/Vol] 22 U/L Normal 16-63 Comment on above: Performed By: #### B SECRETARY, CMP #### [facility] [address] [place] [address] Dr. Usama Hobbs Anion gap [Moles/Vol] 14.5 mmol/L Normal Comment on above: Performed By: #### B SECRETARY, CMP #### [facility] [address] [place] [address] Dr. Usama Hobbs AST [Catalytic activity/Vol] 17 U/L Normal 15-37 Comment on above: Performed By: #### B SECRETARY, CMP #### [facility] [address] [place] [address] Dr. Usama Hobbs Bilirubin [Mass/Vol] 0.4 mg/dL Normal 0.2-1.0 Comment on above: Performed By: #### B SECRETARY, CMP #### [facility] [address] [place] [address] Dr. Usama Hobbs Calcium [Mass/Vol] 7.8 mg/dL Critically low 8.5-10.1 [facility] Comment on above: Performed By: #### B SECRETARY, CMP #### [facility] [address] [place] [address] Dr. Usama Hobbs Chloride [Moles/Vol] 104 mmol/L Normal 98-107 Comment on above: Performed By: #### B SECRETARY, CMP #### [facility] [address] [place] [address] Dr. Usama Hobbs CO2 [Moles/Vol] 25.0 mmol/L Normal 21.0-32.0 Comment on above: Performed By: #### B SECRETARY, CMP #### [facility] [address] [place] [address] Dr. Usama Hobbs Creatinine [Mass/Vol] 1.97 mg/dL Critically high 0.70-1.30 Comment on above: Performed By: #### B SECRETARY, CMP #### [facility] [address] [place] [address] Dr. Usama Hobbs EGFR-AF MARSHALLESE 42 mL/min/1.73m2 Critically low >=60 Comment on above: Performed By: #### B SECRETARY, CMP #### [facility] [address] [place] [address] Dr. Usama Hobbs EGFR-NON AF MARSHALLESE 34 mL/min/1.73m2 Critically low >=60 Comment on above: Performed By: #### B SECRETARY, CMP #### [facility] [address] [place] [address] Dr. Usama Hobbs Globulin (S) [Mass/Vol] 3.3 g/dL Normal Comment on above: Performed By: #### B SECRETARY, CMP #### [facility] [address] [place] [address] Dr. Usama Hobbs Glucose [Mass/Vol] 91 mg/dL Normal 74-106 Comment on above: Performed By: #### B SECRETARY, CMP #### [facility] [address] [place] [address] Dr. Usama Hobbs Potassium [Moles/Vol] 3.5 mmol/L Normal 3.5-5.1 Comment on above: Performed By: #### B SECRETARY, CMP #### [facility] [address] [place] [address] Dr. Usama Hobbs Protein [Mass/Vol] 6.1 g/dL Normal 6.1-8.2 [facility] Comment on above: Performed By: #### B SECRETARY, CMP #### [facility] [address] [place] [address] Dr. Usama Hobbs Sodium [Moles/Vol] 140 mmol/L Normal 136-145 [facility] Comment on above: Performed By: #### B SECRETARY, CMP #### [facility] [address] [place] [address] Dr. Usama Hobbs Urea nitrogen [Mass/Vol] 18.0 mg/dL Normal 7.0-18.0 Comment on above: Performed By: #### B SECRETARY, CMP #### [facility] [address] [place] [address] Dr. Usama Hobbs Urea nitrogen/Creatinine [Mass ratio] 9.1 mg/mg Normal [facility] Comment on above: Performed By: #### B SECRETARY, CMP #### [facility] [address] [place] [address] Dr. Usama Hobbs T3, TOTAL (TRIIODOTHYRONINE) on 11-18-2021 T3, TOTAL 101 ng/dL Normal 71-180 Comment on above: Performed By: #### T 3TOTAL #### [facility] [address] [place] [address] Dr. Usama Hobbs BNPon 11-17-2021 Natriuretic peptide B (Bld) [Mass/Vol] 6047.0 pg/mL Critically high <=900.0 [facility] Comment on above: Performed By: #### C MP, BNP #### [facility] [address] [place] [address] Dr. Usama Hobbs CBC AUTO DIFFon 11-17-2021 BASO # 0.0 103/ul Normal 0.0-0.1 Comment on above: Performed By: #### C BC #### [facility] [address] [place] [address] Dr. Usama Hobbs Basophils/100 WBC (Bld) 0.4 % Normal 0.2-2.0 Comment on above: Performed By: #### C BC #### [facility] [address] [place] [address] Dr. Usama Hobbs EO # 0.1 103/ul Normal 0.0-0.7 [facility] Comment on above: Performed By: #### C BC #### [facility] [address] [place] [address] Dr. Usama Hobbs Eosinophils/100 WBC (Bld) 6.2 % Normal 0.9-7.0 Comment on above: Performed By: #### C BC #### [facility] [address] [place] [address] Dr. Usama Hobbs Erythrocyte distribution width (RBC) [Ratio] 12.3 % Normal 11.0-15.0 Comment on above: Performed By: #### C BC #### [facility] [address] [place] [address] Dr. Usama Hobbs Hematocrit (Bld) [Volume fraction] 31.8 % Critically low 42.0-54.0 Comment on above: Performed By: #### C BC #### [facility] [address] [place] [address] Dr. Usama Hobbs Hemoglobin (Bld) [Mass/Vol] 10.5 g/dL Critically low 14.0-18.0 Comment on above: Performed By: #### C BC #### [facility] [address] [place] [address] Dr. Usama Hobbs IG # 0.01 10e3/ul Normal 0.00-0.03 Comment on above: Performed By: #### C BC #### [facility] [address] [place] [address] Dr. Usama Hobbs IG % 0.4 % Normal 0.0-0.5 [facility] Comment on above: Performed By: #### C BC #### [facility] [address] [place] [address] Dr. Usama Hobbs LYMPH # 0.6 103/ul Critically low 1.2-3.8 Comment on above: Performed By: #### C BC #### [facility] [address] [place] [address] Dr. Usama Hobbs Lymphocytes/100 WBC (Bld) 27.4 % Normal 20.5-60.0 Comment on above: Performed By: #### C BC #### [facility] [address] [place] [address] Dr. Usama Hobbs MANUAL DIFF REQ NO Normal Comment on above: Performed By: #### C BC #### [facility] [address] [place] [address] Dr. Usama Hobbs MCH (RBC) [Entitic mass] 30.3 pg Normal 25.9-34.0 Comment on above: Performed By: #### C BC #### [facility] [address] [place] [address] Dr. Usama Hobbs MCHC (RBC) [Mass/Vol] 33.0 g/dL Normal 29.9-35.2 Comment on above: Performed By: #### C BC #### [facility] [address] [place] [address] Dr. Usama Hobbs MCV (RBC) [Entitic vol] 91.6 fL Normal 80.0-94.0 Comment on above: Performed By: #### C BC #### [facility] [address] [place] [address] Dr. Usama Hobbs MONO # 0.4 103/ul Normal 0.3-0.8 [facility] Comment on above: Performed By: #### C BC #### [facility] [address] [place] [address] Dr. Usama Hobbs Monocytes/100 WBC (Bld) 17.3 % Critically high 1.7-12.0 Comment on above: Performed By: #### C BC #### [facility] [address] [address] [address] Usama Hobbs NEUT # 1.1 103/ul Critically low 1.4-6.5 Comment on above: Performed By: #### C BC #### [facility] [address] [place] [address] Dr. Usama Hobbs Neutrophils/100 WBC (Bld) 48.3 % Normal 43.0-75.0 Comment on above: Performed By: #### C BC #### [facility] [address] [place] [address] Dr. Usama Hobbs Platelet mean volume (Bld) [Entitic vol] 10.9 fL Normal 9.5-13.5 [facility] Comment on above: Performed By: #### C BC #### [facility] [address] [place] [address] Dr. Usama Hobbs PLT 174 103/ul Normal 150-450 Comment on above: Performed By: #### C BC #### [facility] [address] [place] [address] Dr. Usama Hobbs RBC 3.47 106/ul Critically low 4.70-6.10 Comment on above: Performed By: #### C BC #### [facility] [address] [place] [address] Dr. Usama Hobbs WBC 2.3 103/ul Critically low 4.0-11.0 Comment on above: Performed By: #### C BC #### [facility] [address] [place] [address] Dr. Usama Hobbs PROF 14(COMP METB)on 022 Albumin [Mass/Vol] 3.3 g/dL Critically low 3.4-5.0 [facility] Comment on above: Performed By: #### C MP, BNP #### [facility] [address] [place] [address] Dr. Usama Hobbs Albumin/Globulin [Mass ratio] 0.9 {ratio} Normal Comment on above: Performed By: #### C MP, BNP #### [facility] [address] [address] [address] Usama Hobbs ALP [Catalytic activity/Vol] 73 U/L Normal 46-116 Comment on above: Performed By: #### C MP, BNP #### [facility] [address] [place] [address] Dr. Usama Hobbs ALT [Catalytic activity/Vol] 31 U/L Normal 16-63 Comment on above: Performed By: #### C MP, BNP #### [facility] [address] [place] [address] Dr. Usama Hobbs Anion gap [Moles/Vol] 13.8 mmol/L Normal Comment on above: Performed By: #### C MP, BNP #### [facility] [address] [place] [address] Dr. Usama Hobbs AST [Catalytic activity/Vol] 22 U/L Normal 15-37 Comment on above: Performed By: #### C MP, BNP #### [facility] [address] [place] [address] Dr. Usama Hobbs Bilirubin [Mass/Vol] 0.6 mg/dL Normal 0.2-1.0 Comment on above: Performed By: #### C MP, BNP #### [facility] [address] [place] [address] Dr. Usama Hobbs Calcium [Mass/Vol] 8.3 mg/dL Critically low 8.5-10.1 [facility] Comment on above: Performed By: #### C MP, BNP #### [facility] [address] [place] [address] Dr. Usama Hobbs Chloride [Moles/Vol] 105 mmol/L Normal 98-107 Comment on above: Performed By: #### C MP, BNP #### [facility] [address] [place] [address] Dr. Usama Hobbs CO2 [Moles/Vol] 26.1 mmol/L Normal 21.0-32.0 Comment on above: Performed By: #### C MP, BNP #### [facility] [address] [place], [place] [id number] Dr. Usama Hobbs Creatinine [Mass/Vol] 2.05 mg/dL Critically high 0.70-1.30 [facility] Comment on above: Performed By: #### C MP, BNP #### [facility] [address] [place] [address] Dr. Usmaa Hobbs EGFR-AF MARSHALLESE 40 mL/min/1.73m2 Critically low >=60 [facility] Comment on above: Performed By: #### C MP, BNP #### [facility] [address] [place] [address] Dr. Usmaa Hobbs EGFR-NON AF MARSHALLESE 33 mL/min/1.73m2 Critically low >=60 [facility] Comment on above: Performed By: #### C MP, BNP #### [facility] [address] [place] [address] Dr. Usama Hobbs Globulin (S) [Mass/Vol] 3.7 g/dL Normal [facility] Comment on above: Performed By: #### C MP, BNP #### [facility] [address] [place] [address] Dr. Usama Hobbs Glucose [Mass/Vol] 86 mg/dL Normal 74-106 [facility] Comment on above: Performed By: #### C MP, BNP #### [facility] [address] [place] [address] Dr. Usama Hobbs Potassium [Moles/Vol] 3.9 mmol/L Normal 3.5-5.1 [facility] Comment on above: Performed By: #### C MP, BNP #### [facility] [address] [place] [address] Dr. Usama Hobbs Protein [Mass/Vol] 7.0 g/dL Normal 6.1-8.2 [facility] Comment on above: Performed By: #### C MP, BNP #### [facility] [address] [place] [address] Dr. Usama Hobbs Sodium [Moles/Vol] 141 mmol/L Normal 136-145 [facility] Comment on above: Performed By: #### C MP, BNP #### [facility] [address] [address] [address] Usama Hobbs Urea nitrogen [Mass/Vol] 21.0 mg/dL Critically high 7.0-18.0 Comment on above: Performed By: #### C MP, BNP #### [facility] [address] [address] [address] Usama Hobbs Urea nitrogen/Creatinine [Mass ratio] 10.2 mg/mg Normal Comment on above: Performed By: #### C MP, BNP #### [facility] [address] [address] [address] Usama Hobbs Basic metabolic 2000 panelon 11-16-2021 Anion gap [Moles/Vol] 16 mmol/L 9 - 18 mmol/L [facility] Calcium [Mass/Vol] 9.2 mg/dL 8.5 - 10.2 mg/dL [facility] Chloride [Moles/Vol] 102 mmol/L 97 - 105 mmol/L [facility] CO2 [Moles/Vol] 20 mmol/L Low 22 - 30 mmol/L [facility] Creatinine [Mass/Vol] 2.33 mg/dL High 0.73 - 1.22 mg/dL [facility] Estimated Glomerular Filtration Rate 30 mL/min/1.73m Low >=60 mL/min/1.73m [facility] Glucose [Mass/Vol] 78 mg/dL 74 - 99 mg/dL [facility] Potassium [Moles/Vol] 3.9 mmol/L 3.7 - 5.1 mmol/L [facility] Sodium [Moles/Vol] 138 mmol/L 136 - 144 mmol/L [facility] Urea nitrogen [Mass/Vol] 27 mg/dL High 9 - 24 mg/dL [facility] CBC W MANUAL DIFFon 11-17-19 22 ATYPICAL LYMPH # Normal [facility] Comment on above: Performed By: #### B SECRETARY, CMP #### [facility] [address] [place] [address] Dr. Usama Hobbs ATYPICAL LYMPH % Normal Comment on above: Performed By: #### B SECRETARY, CMP #### [facility] [address] [address] [address] Usama Hobbs BAND # 0.0 103/ul Normal 0.0-0.3 Comment on above: Performed By: #### B SECRETARY, CMP #### [facility] [address] [place] [address] Dr. Usama Hobbs BAND % 0 % Normal 0-5 Comment on above: Performed By: #### B SECRETARY, CMP #### [facility] [address] [place] [address] Dr. Usama Hobbs BASOM # 0.00 103/ul Normal 0.00-0.10 Comment on above: Performed By: #### B SECRETARY, CMP #### [facility] [address] [place] [address] Dr. Usama Hobbs BASOM % 0.0 % Critically low 0.2-2.0 Comment on above: Performed By: #### B SECRETARY, CMP #### [facility] [address] [place] [address] Dr. Usama Hobbs BLAST # Normal Comment on above: Performed By: #### B SECRETARY, CMP #### [facility] [address] [place] [address] Dr. Usama Hobbs BLAST % Normal Comment on above: Performed By: #### B SECRETARY, CMP #### [facility] [address] [place] [address] Dr. Usama Hobbs CORRECTED WBC Normal 4.0-11.0 Comment on above: Performed By: #### B SECRETARY, CMP #### [facility] [address] [place] [address] Dr. Usama Hobbs EOS # 0.14 103/ul Normal 0.00-0.70 Comment on above: Performed By: #### B SECRETARY, CMP #### [facility] [address] [place] [address] Dr. Usama Hobbs EOS% 8.0 % Critically high 0.9-7.0 Comment on above: Performed By: #### B SECRETARY, CMP #### [facility] [address] [place] [address] Dr. Usama Hobbs HCT 28.7 % Critically low 42.0-54.0 Comment on above: Performed By: #### B SECRETARY, CMP #### [facility] [address] [place] [address] Dr. Usama Hobbs HGB 9.7 g/dl Critically low 14.0-18.0 Comment on above: Performed By: #### B SECRETARY, CMP #### [facility] [address] [place] [address] Dr. Usama Hobbs LYMPHM # 0.59 103/ul Critically low 1.20-3.80 Comment on above: Performed By: #### B SECRETARY, CMP #### [facility] [address] [place] [address] Dr. Usama Hobbs LYMPHM% 33.0 % Normal 20.5-60.0 Comment on above: Performed By: #### B SECRETARY, CMP #### [facility] [address] [place] [address] Dr. Usama Hobbs MCH 30.9 pg Normal 25.9-34.0 Comment on above: Performed By: #### B SECRETARY, CMP #### [facility] [address] [place] [address] Dr. Usama Hobbs MCHC 33.8 g/dl Normal 29.9-35.2 Comment on above: Performed By: #### B SECRETARY, CMP #### [facility] [address] [place] [address] Dr. Usama Hobbs MCV 91.4 fL Normal 80.0-94.0 Comment on above: Performed By: #### B SECRETARY, CMP #### [facility] [address] [place] [address] Dr. Usama Hobbs METAMYELOCYTE # 0.0 103/ul Normal [facility] Comment on above: Performed By: #### B SECRETARY, CMP #### [facility] [address] [place] [address] Dr. Usama Hobbs METAMYELOCYTE % 1 % Normal [facility] Comment on above: Performed By: #### B SECRETARY, CMP #### [facility] [address] [place] [address] Dr. Usama Hobbs MONOM# 0.14 103/ul Critically low 0.30-0.80 Comment on above: Performed By: #### B SECRETARY, CMP #### [facility] [address] [place] [address] Dr. Usama Hobbs MONOM% 8.0 % Normal 1.7-12.0 Comment on above: Performed By: #### B SECRETARY, CMP #### [facility] [address] [place] [address] Dr. Usama Hobbs MPV 10.5 fL Normal 9.5-13.5 Comment on above: Performed By: #### B SECRETARY, CMP #### [facility] [address] [place] [address] Dr. Usama Hobbs MYELOCYTE # 0.1 103/ul Normal Comment on above: Performed By: #### B SECRETARY, CMP #### [facility] [address] [place] [address] Dr. Usama Hobbs MYELOCYTE % 5 % Normal Comment on above: Performed By: #### B SECRETARY, CMP #### [facility] [address] [place] [address] Dr. Usama Hobbs NRBC Normal Comment on above: Performed By: #### B SECRETARY, CMP #### [facility] [address] [place] [address] Dr. Usama Hobbs PLT 163 103/ul Normal 150-450 [facility] Comment on above: Performed By: #### B SECRETARY, CMP #### [facility] [address] [place] [address] Dr. Usama Hobbs RBC 3.14 106/ul Critically low 4.70-6.10 Comment on above: Performed By: #### B SECRETARY, CMP #### [facility] [address] [place] [address] Dr. Usama Hobbs RDW 12.4 % Normal 11.0-15.0 Comment on above: Performed By: #### B SECRETARY, CMP #### [facility] [address] [place], [place] [address] Dr. Usama Hobbs SEG # 0.81 103/ul Critically low 1.40-6.50 [facility] Comment on above: Performed By: #### B SECRETARY, CMP #### [facility] [address] [address] [address] Usama Hobbs SEG % 45.0 % Normal 43.0-75.0 Comment on above: Performed By: #### B SECRETARY, CMP #### [facility] [address] [place], [place] [address] Dr. Usama Hobbs WBC 1.8 103/ul Critically low 4.0-11.0 Comment on above: Performed By: #### B SECRETARY, CMP #### [facility] [address] HEAD WO CONon [...] JOSUE SINGH Date: 2021-11-16 18:41 Normal [facility] Covid-19 PCR (CVDTBH)on 10-20 SARS-CoV-2 (COVID-19) RNA TONYA+probe Ql (Unsp spec) Not detected Normal NOT DETECTED [facility] Comment on above: Result Comment: This test is not yet approved or cleared by the [place] FDA. When there are no FDA-approved or cleared tests available, and other criteria are met, FDA can make tests available under an emergency access mechanism called an Emergency Use Authorization (EUA). The EUA for this test is supported by the [place] of Health and Human Service's (HHS's) declaration [...] consistent with SARS-CoV-2. Performed By: #### B SECRETARY, CMP #### [facility] [address] [place] [address] Dr. Usama Hobbs PROF 14(COMP METB)on 022 Albumin [Mass/Vol] 3.3 g/dL Critically low 3.4-5.0 [facility] Comment on above: Performed By: #### P SAD #### [facility] [address] [place] [address] Dr. Usama Hobbs Albumin/Globulin [Mass ratio] 0.9 {ratio} Normal Comment on above: Performed By: #### P SAD #### [facility] [address] [place] [address] Dr. Usama Hobbs ALP [Catalytic activity/Vol] 78 U/L Normal 46-116 Comment on above: Performed By: #### P SAD #### [facility] [address] [place] [address] Dr. Usama Hobbs ALT [Catalytic activity/Vol] 33 U/L Normal 16-63 Comment on above: Performed By: #### P SAD #### [facility] [address] [place] [address] Dr. Usama Hobbs Anion gap [Moles/Vol] 9.8 mmol/L Normal Comment on above: Performed By: #### P SAD #### [facility] [address] [place] [address] Dr. Usama Hobbs AST [Catalytic activity/Vol] 25 U/L Normal 15-37 Comment on above: Performed By: #### P SAD #### [facility] [address] [address] [address] Usama Hobbs Bilirubin [Mass/Vol] 0.4 mg/dL Normal 0.2-1.0 Comment on above: Performed By: #### P SAD #### [facility] [address] [address] [address] Usama Hobbs Calcium [Mass/Vol] 8.1 mg/dL Critically low 8.5-10.1 [facility] Comment on above: Performed By: #### P SAD #### [facility] [address] [address] [address] Usama Hobbs Chloride [Moles/Vol] 102 mmol/L Normal 98-107 Comment on above: Performed By: #### P SAD #### [facility] [address] [address] [address] Usama Hobbs CO2 [Moles/Vol] 27.0 mmol/L Normal 21.0-32.0 Comment on above: Performed By: #### P SAD #### [facility] [address] [address] [address] Usama Hobbs Creatinine [Mass/Vol] 2.27 mg/dL Critically high 0.70-1.30 Comment on above: Performed By: #### P SAD #### [facility] [address] [address] [address] Usama Hobbs EGFR-AF MARSHALLESE 35 mL/min/1.73m2 Critically low >=60 Comment on above: Performed By: #### P SAD #### [facility] [address] [address] [address] Usama Hobbs EGFR-NON AF MARSHALLESE 29 mL/min/1.73m2 Critically low >=60 Comment on above: Performed By: #### P SAD #### [facility] [address] [address] [address] Usama Hobbs Globulin (S) [Mass/Vol] 3.5 g/dL Normal Comment on above: Performed By: #### P SAD #### [facility] [address] [address] [address] Usama Hobbs Glucose [Mass/Vol] 88 mg/dL Normal 74-106 Comment on above: Performed By: #### P SAD #### [facility] [address] [address] [address] Usama Hobbs Potassium [Moles/Vol] 3.8 mmol/L Normal 3.5-5.1 Comment on above: Performed By: #### P SAD #### [facility] [address] [address] [address] Usama Hobbs Protein [Mass/Vol] 6.8 g/dL Normal 6.1-8.2 Comment on above: Performed By: #### P SAD #### [facility] [address] [address] [address] Usama Hobbs Sodium [Moles/Vol] 135 mmol/L Critically low 136-145 [facility] Comment on above: Performed By: #### P SAD #### [facility] [address] [address] [address] Usama Hobbs Urea nitrogen [Mass/Vol] 26.0 mg/dL Critically high 7.0-18.0 Comment on above: Performed By: #### P SAD #### [facility] [address] [address] [address] Usama Hobbs Urea nitrogen/Creatinine [Mass ratio] 11.5 mg/mg Normal Comment on above: Performed By: #### P SAD #### [facility] [address] [address] [address] Usama Hobbs PROTIMEon 11-16-2021 INR Coag (PPP) [Relative time] 0.99 {INR} Normal Comment on above: Performed By: #### B SECRETARY, CMP #### [facility] [address] [address] [address] Usama Hobbs INR GUIDELINES SEE BELOW Normal Comment on above: Result Comment: LUCY RED INR: 2.0 - 3.0 CONDITIONS NOT LISTED BELOW 2.5 - 3.5 FOR PROSTHETIC HEART VALVE REPLACEMENT 2.5 - 3.5 RECURRENT THROMBOSIS Performed By: #### B SECRETARY, CMP #### [facility] [address] [place] [address] Dr. Usama Hobbs PT Coag (PPP) [Time] 10.7 s Normal 9.0-11.6 [facility] Comment on above: Performed By: #### B SECRETARY, CMP #### [facility] [address] [place] [address] Dr. Usama Hobbs PTTon 11-16-2021 aPTT Coag (Bld) [Time] 28.2 s Normal 22.3-36.2 [facility] Comment on above: Performed By: #### B SECRETARY, CMP #### [facility] [address] [place] [address] Dr. Usama Hobbs T4on 11-16-2021 T4 [Mass/Vol] 6.30 ug/dL Normal 4.50-12.10 [facility] Comment on above: Performed By: #### P SAD #### [facility] [address] [place] [address] Dr. Usama Hobbs TROPONIN, HIGH SENSITIVITYon 11-16-2021 HSTROP 24.0 pg/mL Normal 4.0-76.1 [facility] Comment on above: Result Comment: CUT- OFF POINTS HAVE BEEN ESTABLISHED BASED ON THE FOURTH UNIVERSAL DEFINITIONS OF MYOCARDIAL INFARCTION. THE UPPER REFERENCE LIMIT (URL) OF TROPONIN, DEFINED THE 99TH PERCENTILE OF cTnI DISTRIBUTION IN A REFERENCE POPULATION, HAS BEEN CONFIRMED THE DECISION THRESHOLD FOR [place] DIAGNOSIS. Performed By: #### B SECRETARY, CMP #### [facility] [address] [place] [address] Dr. Usama Hobbs TSHon 11-16-2021 TSH 2.466 uIU/mL Normal 0.470-4.680 [facility] Comment on above: Performed By: #### P SAD #### [facility] [address] [place] [address] Dr. Usama Hobbs TSH RANGE SEE BELOW Normal [facility] Comment on above: Result Comment: <0.3 4 UIU/ml HYPERTHYROID 0.34-5.60 UIU/ml EUTHYROID >5.60 UIU/ml HYPOTHYROID Performed By: #### P SAD #### [facility] [address] [address] [address] Usama Hobbs XR CHEST 1 Von [...] LEA ANTUNEZ Date: 2021-11-16 19:24 Normal [facility] CBC W Auto Differential pane l (Bld)on 11-05-2021 Abs Immature Gran <0.03 <0.10 k/uL [facility] Basophils (Bld) [#/Vol] 0.05 10*3/uL <0.11 k/uL [facility] Basophils/100 WBC (Bld) 1.0 % [facility] Differential cell count method Nom (Bld) Auto [facility] Eosinophils (Bld) [#/Vol] 0.39 10*3/uL <0.46 k/uL [facility] Eosinophils/100 WBC (Bld) 7.4 % [facility] Erythrocyte distribution width (RBC) [Ratio] 13.2 % 11.5 - 15.0 % [facility] Hematocrit (Bld) [Volume fraction] 39.1 % 39.0 - 51.0 % [facility] Hemoglobin (Bld) [Mass/Vol] 12.9 g/dL Low 13.0 - 17.0 g/dL [facility] Immature Gran % 0.2 % [facility] Lymphocytes (Bld) [#/Vol] 1.07 10*3/uL 1.00 - 4.00 k/uL [facility] Lymphocytes/100 WBC (Bld) 20.4 % [facility] MCH (RBC) [Entitic mass] 30.6 pg 26.0 - 34.0 pg [facility] MCHC (RBC) [Mass/Vol] 33.0 g/dL 30.5 - 36.0 g/dL [facility] MCV (RBC) [Entitic vol] 92.9 fL 80.0 - 100.0 fL [facility] Monocytes (Bld) [#/Vol] 0.57 10*3/uL <0.87 k/uL [facility] Monocytes/100 WBC (Bld) 10.9 % [facility] Neutrophils (Bld) [#/Vol] 3.15 10*3/uL 1.45 - 7.50 k/uL [facility] Neutrophils/100 WBC (Bld) 60.1 % [facility] Nucleated RBC (Bld) [#/Vol] 10*3/uL <0.01 k/uL [facility] Nucleated RBC/100 WBC (Bld) [Ratio] 0.0 /100 WBC [facility] Platelet mean volume (Bld) [Entitic vol] 9.9 fL 9.0 - 12.7 fL [facility] Platelets (Bld) [#/Vol] 305 10*3/uL 150 - 400 k/uL [facility] RBC (Bld) [#/Vol] 4.21 10*6/uL 4.20 - 6.00 m/uL [facility] WBC (Bld) [#/Vol] 5.24 10*3/uL 3.70 - 11.00 k/u L [facility] Comprehensive metabolic 2000 panelon 11-05-2021 Albumin [Mass/Vol] 4.3 g/dL 3.9 - 4.9 g/dL [facility] ALP [Catalytic activity/Vol] 73 U/L 38 - 113 U/L [facility] ALT [Catalytic activity/Vol] 16 U/L 10 - 54 U/L [facility] Anion gap [Moles/Vol] 12 mmol/L 9 - 18 mmol/L [facility] AST [Catalytic activity/Vol] 17 U/L 14 - 40 U/L [facility] Bilirubin [Mass/Vol] 0.5 mg/dL 0.2 - 1.3 mg/dL [facility] Calcium [Mass/Vol] 10.1 mg/dL 8.5 - 10.2 mg/dL [facility] Chloride [Moles/Vol] 105 mmol/L 97 - 105 mmol/L [facility] CO2 [Moles/Vol] 25 mmol/L 22 - 30 mmol/L [facility] Creatinine [Mass/Vol] 0.89 mg/dL 0.73 - 1.22 mg/dL [facility] Estimated Glomerular Filtration Rate 96 mL/min/1.73m >=60 mL/min/1.73m [facility] Glucose [Mass/Vol] 154 mg/dL High 74 - 99 mg/dL [facility] Potassium [Moles/Vol] 4.2 mmol/L 3.7 - 5.1 mmol/L [facility] Protein [Mass/Vol] 7.1 g/dL 6.3 - 8.0 g/dL [facility] Sodium [Moles/Vol] 142 mmol/L 136 - 144 mmol/L [facility] Urea nitrogen [Mass/Vol] 9 mg/dL 9 - 24 mg/dL [facility] MRI BRAIN WO/W IVCONon 10-31 [facility] XR CHEST 2V FRONTAL/LATon [facility] NM PET/CT WHOLE BODY INITIAL on 05-28-2021 [facility] Cardiovascular Lab Reporton 02-24-2019 Cardiovascular Lab Report [facility] Patient Name: Riccardo , [facility] [place] MR #: [id number] Department of Physician: Jonathan Avalon Alma Chaney M.D. Division of Service Date: 02/23/2019 Cardiology Birthdate: 1955 Adult Cardiovascular Room #: [id number] [place] [address] Cardiovascular Laboratory Report INDICATION: The patient is [...] signed informed consent. He was brought to skilled laborer in a fasting state. The right groin area was prepped and draped in usual fashion. Using micropuncture technique, the right common femoral artery was accessed. The inner cannula was advanced and limited right femoral angiography was performed followed by upsizing to a 6-[place] x 5 cm sheath. Right lower extremity angiography was performed down to the level of the foot. An angled Glidewire was advanced into the abdominal aorta and a 5-[place] Uni-Flush catheter was advanced. Aortoiliac angiography was performed using digital subtraction angiography and power injection of contrast. Using the angled Glidewire, the aortoiliac bifurcation was crossed and the catheter was exchanged to a 5-Macanese straight tapered diagnostic catheter, which was used to perform left lower extremity angiography down to the level of the foot. Pullback across the left iliac artery system was performed with measurement of pressure. Left iliac angiography was performed for both external, internal, and common iliac arteries. The catheter was retracted. Right common and external iliac artery angiography was performed using angulated views. A [employer] Torque wire was advanced into the distal [...] The access sheath was exchanged to a 6-Macanese x 11 cm sheath. The patient was [...] Chaney M.D. Date Trans: 02/24/2019 05:47 A/boris [id number] cc: Christina Azul M.D. [address] [place] [id number] [facility] Vital Signs Date Time Vital Sign Value Performing Clinician Facility 03-20-2024 15:21-0400 Body temperature 97.8 [degF] [facility] 03-20-2024 15:21-0400 Diastolic blood pressure 82 mm[Hg] [facility] 03-20-2024 15:21-0400 Heart rate 68 /min [facility] 03-20-2024 15:21-0400 Respiratory rate 16 /min [facility] 03-20-2024 15:21-0400 SaO2% (BldA) [Mass fraction] 98 % [facility] 03-20-2024 15:21-0400 Systolic blood pressure 171 mm[Hg] [facility] 03-20-2024 06:00-0400 Body weight 50.2 kg [facility] 03-20-2024 00:00-0400 Inhaled oxygen flow rate 2 L/min [facility] 03-19-2024 11:15-0400 Heart rate 80 /min [facility] 03-19-2024 11:00-0400 Diastolic blood pressure 84 mm[Hg] [facility] 03-19-2024 11:00-0400 Respiratory rate 16 /min [facility] 03-19-2024 11:00-0400 SaO2% (BldA) [Mass fraction] 95 % [facility] 03-19-2024 11:00-0400 Systolic blood pressure 178 mm[Hg] [facility] 03-19-2024 09:14-0400 Body height 170.18 cm [facility] 03-19-2024 09:14-0400 Body temperature 97.9 [degF] [facility] 03-19-2024 09:14-0400 Body weight 52.25 kg [facility] 03-18-2024 18:52-0400 Diastolic blood pressure 90 mm[Hg] [facility] 03-18-2024 18:52-0400 Systolic blood pressure 190 mm[Hg] [facility] 03-18-2024 18:45-0400 Body height 170.18 cm [facility] 03-18-2024 18:45-0400 Body temperature 98.4 [degF] [facility] 03-18-2024 18:45-0400 Body weight 52.8 kg [facility] 03-18-2024 18:45-0400 Heart rate 67 /min [facility] 03-18-2024 18:45-0400 Respiratory rate 21 /min [facility] 03-18-2024 18:45-0400 SaO2% (BldA) [Mass fraction] 100 % [facility] 03-18-2024 13:27-0400 SaO2% (BldA) [Mass fraction] 84 % Nina Grigsby MD Work Phone: [facility] 03-18-2024 13:21-0400 Body height 168.3 cm Nina Grigsby MD Work Phone: [facility] 03-18-2024 13:21-0400 Body mass index (BMI) [Ratio] 18.15 kg/m2 Nina Grigsby MD Work Phone: [facility] 03-18-2024 13:21-0400 Body temperature 97.5 [degF] Nina Grigsby MD Work Phone: [facility] 03-18-2024 13:21-0400 Body weight 51.4 kg Nina Grigsby MD Work Phone: [facility] 03-18-2024 13:21-0400 Diastolic blood pressure 78 mm[Hg] Nina Grigsby MD Work Phone: [facility] 03-18-2024 13:21-0400 Heart rate 86 /min Nina Grigsby MD Work Phone: [facility] 03-18-2024 13:21-0400 Respiratory rate 16 /min Nina Grigsby MD Work Phone: [facility] 03-18-2024 13:21-0400 Systolic blood pressure 159 mm[Hg] Nina Grigsby MD Work Phone: [facility] 03-15-2024 13:06-0400 Body mass index (BMI) [Ratio] 17.62 kg/m2 Merary Lucas MD Work Phone: [facility] 03-15-2024 13:06-0400 Body weight 49.9 kg Merary Lucas MD Work Phone: [facility] 03-15-2024 13:06-0400 Diastolic blood pressure 62 mm[Hg] Merary Lucas MD Work Phone: [facility] 03-15-2024 13:06-0400 Heart rate 65 /min Merary Lucas MD Work Phone: [facility] 03-15-2024 13:06-0400 SaO2% (BldA) [Mass fraction] 100 % Merary Lucas MD Work Phone: [facility] Comment on above: ra 03-15-2024 13:06-0400 Systolic blood pressure 127 mm[Hg] Merary Lucas MD Work Phone: [facility] 02-07-2024 19:28-0400 Diastolic blood pressure 75 mm[Hg] [facility] 02-07-2024 19:28-0400 Heart rate 76 /min [facility] 02-07-2024 19:28-0400 Respiratory rate 18 /min [facility] 02-07-2024 19:28-0400 SaO2% (BldA) [Mass fraction] 97 % [facility] 02-07-2024 19:28-0400 Systolic blood pressure 159 mm[Hg] [facility] 02-07-2024 15:51-0400 Body height 170.18 cm [facility] 02-07-2024 15:51-0400 Body temperature 98 [degF] [facility] 02-07-2024 15:51-0400 Body weight 52.3 kg [facility] 02-03-2024 11:32-0400 Body height 168.3 cm Yusef Jessica PA-C Work Phone: [facility] 02-03-2024 11:32-0400 Body mass index (BMI) [Ratio] 18.43 kg/m2 Yusef Jessica PA-C Work Phone: [facility] 02-03-2024 11:32-0400 Body temperature 97.3 [degF] Yusef Jessica PA-C Work Phone: [facility] 02-03-2024 11:32-0400 Body weight 52.2 kg Yusef Jessica PA-C Work Phone: [facility] 02-03-2024 11:32-0400 Diastolic blood pressure 74 mm[Hg] Yusef Jessica PA-C Work Phone: [facility] 02-03-2024 11:32-0400 Heart rate 92 /min Yusef Jessica PA-C Work Phone: [facility] 02-03-2024 11:32-0400 Respiratory rate 18 /min Yusef Jessica PA-C Work Phone: [facility] 02-03-2024 11:32-0400 SaO2% (BldA) [Mass fraction] 99 % Yusef Almaguerer PA-C Work Phone: [facility] 02-03-2024 11:32-0400 Systolic blood pressure 122 mm[Hg] Yusef Almaguerer PA-C Work Phone: [facility] 12-23-2023 14:53-0400 Body height 168.3 cm Nina Grigsby MD Work Phone: [facility] 12-23-2023 14:53-0400 Body mass index (BMI) [Ratio] 19.49 kg/m2 Nina Grigsby MD Work Phone: [facility] 12-23-2023 14:53-0400 Body temperature 97.39 [degF] Nina Grigsby MD Work Phone: [facility] 12-23-2023 14:53-0400 Body weight 55.2 kg Nina Grigsby MD Work Phone: [facility] 12-23-2023 14:53-0400 Diastolic blood pressure 74 mm[Hg] Nina Grigsby MD Work Phone: [facility] 12-23-2023 14:53-0400 Heart rate 71 /min Nina Grigsby MD Work Phone: [facility] 12-23-2023 14:53-0400 Respiratory rate 16 /min Nina Grigsby MD Work Phone: [facility] 12-23-2023 14:53-0400 SaO2% (BldA) [Mass fraction] 99 % Nina Grigsby MD Work Phone: [facility] 12-23-2023 14:53-0400 Systolic blood pressure 137 mm[Hg] Nina Grigsby MD Work Phone: [facility] 12-22-2023 12:38-0400 Body mass index (BMI) [Ratio] 18.29 kg/m2 JC Limon MD Work Phone: [facility] 12-22-2023 12:38-0400 Body temperature 97.59 [degF] JC Limon MD Work Phone: [facility] 12-22-2023 12:38-0400 Body weight 51.8 kg JC Limon MD Work Phone: [facility] 12-22-2023 12:38-0400 Diastolic blood pressure 83 mm[Hg] JC Limon MD Work Phone: [facility] 12-22-2023 12:38-0400 Heart rate 116 /min JC Limon MD Work Phone: [facility] 12-22-2023 12:38-0400 Respiratory rate 18 /min JC Limon MD Work Phone: [facility] 12-22-2023 12:38-0400 SaO2% (BldA) [Mass fraction] 99 % JC Limon MD Work Phone: [facility] 12-22-2023 12:38-0400 Systolic blood pressure 124 mm[Hg] JC Limon MD Work Phone: [facility] 12-16-2023 15:45-0400 Body mass index (BMI) [Ratio] 19.14 kg/m2 JC Limon MD Work Phone: [facility] 12-16-2023 15:45-0400 Body temperature 97.3 [degF] JC Limon MD Work Phone: [facility] 12-16-2023 15:45-0400 Body weight 54.2 kg JC Limon MD Work Phone: [facility] 12-16-2023 15:45-0400 Diastolic blood pressure 86 mm[Hg] JC Limon MD Work Phone: [facility] 12-16-2023 15:45-0400 Heart rate 66 /min JC Limon MD Work Phone: [facility] 12-16-2023 15:45-0400 Respiratory rate 16 /min JC Limon MD Work Phone: [facility] 12-16-2023 15:45-0400 SaO2% (BldA) [Mass fraction] 100 % JC Limon MD Work Phone: [facility] 12-16-2023 15:45-0400 Systolic blood pressure 161 mm[Hg] JC Limon MD Work Phone: [facility] 12-10-2023 14:40-0400 Body mass index (BMI) [Ratio] 19.21 kg/m2 JC Limon MD Work Phone: [facility] 12-10-2023 14:40-0400 Body temperature 96.69 [degF] JC Limon MD Work Phone: [facility] 12-10-2023 14:40-0400 Body weight 54.4 kg JC Limon MD Work Phone: [facility] 12-10-2023 14:40-0400 Diastolic blood pressure 68 mm[Hg] JC Limon MD Work Phone: [facility] 12-10-2023 14:40-0400 Heart rate 68 /min JC Limon MD Work Phone: [facility] 12-10-2023 14:40-0400 Respiratory rate 16 /min JC Limon MD Work Phone: [facility] 12-10-2023 14:40-0400 SaO2% (BldA) [Mass fraction] 97 % JC Limon MD Work Phone: [facility] 12-10-2023 14:40-0400 Systolic blood pressure 125 mm[Hg] JC Limon MD Work Phone: [facility] 12-02-2023 10:20-0400 Body height 168.3 cm Nina Grigsby MD Work Phone: [facility] 12-02-2023 10:20-0400 Body mass index (BMI) [Ratio] 18.71 kg/m2 Nina Grigsby MD Work Phone: [facility] 12-02-2023 10:20-0400 Body temperature 96.69 [degF] Nina Grigsby MD Work Phone: [facility] 12-02-2023 10:20-0400 Body weight 53 kg Nina Grigsby MD Work Phone: [facility] 12-02-2023 10:20-0400 Diastolic blood pressure 83 mm[Hg] Nina Grigsby MD Work Phone: [facility] 12-02-2023 10:20-0400 Heart rate 55 /min Nina Grigsby MD Work Phone: [facility] 12-02-2023 10:20-0400 Respiratory rate 16 /min Nina Grigsby MD Work Phone: [facility] 12-02-2023 10:20-0400 SaO2% (BldA) [Mass fraction] 93 % Nina Grigsby MD Work Phone: [facility] 12-02-2023 10:20-0400 Systolic blood pressure 133 mm[Hg] Nina Grigsby MD Work Phone: [facility] 11-21-2023 10:05-0400 Body height 168.3 cm Estella Bundridge [employer] Work Phone: [facility] 11-21-2023 10:05-0400 Body mass index (BMI) [Ratio] 19.74 kg/m2 Estella Bundridge [employer] C[employer] Work Phone: [facility] 11-21-2023 10:05-0400 Body temperature 97.7 [degF] Estella Bundridge [employer] CAREGIVER Work Phone: [facility] 11-21-2023 10:05-0400 Body weight 55.9 kg Estella Bundridge [employer] C[employer] Work Phone: [facility] 11-21-2023 10:05-0400 Diastolic blood pressure 91 mm[Hg] Estella Bundridge [employer] C[employer]GIVER Work Phone: [facility] 11-21-2023 10:05-0400 Heart rate 95 /min Estella Bundridge [employer] C[employer]GIVER Work Phone: [facility] 11-21-2023 10:05-0400 Respiratory rate 16 /min Estella Bundridge [employer] C[employer] Work Phone: [facility] 11-21-2023 10:05-0400 SaO2% (BldA) [Mass fraction] 98 % Estella Bundridge [employer] C[employer] Work Phone: [facility] 11-21-2023 10:05-0400 Systolic blood pressure 154 mm[Hg] Estella Bundridge [employer] C[employer]GIVER Work Phone: [facility] 11-04-2023 09:43-0400 Body height 168.3 cm Nina Grigsby MD Work Phone: [facility] 11-04-2023 09:43-0400 Body temperature 97 [degF] Nina Grigsby MD Work Phone: [facility] 11-04-2023 09:43-0400 Body weight 56.3 kg Nina Grigsby MD Work Phone: [facility] 11-04-2023 09:43-0400 Diastolic blood pressure 84 mm[Hg] Nina Grigsby MD Work Phone: [facility] 11-04-2023 09:43-0400 Heart rate 101 /min Nina Grigsby MD Work Phone: [facility] 11-04-2023 09:43-0400 Respiratory rate 16 /min Nina Grigsby MD Work Phone: [facility] 11-04-2023 09:43-0400 SaO2% (BldA) [Mass fraction] 96 % Nina Grigsby MD Work Phone: [facility] 11-04-2023 09:43-0400 Systolic blood pressure 147 mm[Hg] Nina Grigsby MD Work Phone: [facility] 10-20-2023 10:06-0400 Body height 168.3 cm Nina Grigsby MD Work Phone: [facility] 10-20-2023 10:06-0400 Body temperature 97.3 [degF] Nina Grigsby MD Work Phone: [facility] 10-20-2023 10:06-0400 Body weight 57.5 kg Nina Grigsby MD Work Phone: [facility] 10-20-2023 10:06-0400 Diastolic blood pressure 72 mm[Hg] Nina Grigsby MD Work Phone: [facility] 10-20-2023 10:06-0400 Heart rate 82 /min Nina Grigsyb MD Work Phone: [facility] 10-20-2023 10:06-0400 Respiratory rate 18 /min Nina Grigsby MD Work Phone: [facility] 10-20-2023 10:06-0400 SaO2% (BldA) [Mass fraction] 98 % Nina Grigsby MD Work Phone: [facility] 10-20-2023 10:06-0400 Systolic blood pressure 155 mm[Hg] Nina Grigsby MD Work Phone: [facility] 09-22-2023 09:56-0500 Body height 168.3 cm Nina Grigsby MD Work Phone: [facility] 09-22-2023 09:56-0500 Body temperature 97.11 [degF] Nina Grigsby MD Work Phone: [facility] 09-22-2023 09:56-0500 Body weight 60.2 kg Nina Grigsby MD Work Phone: [facility] 09-22-2023 09:56-0500 Diastolic blood pressure 78 mm[Hg] Nina Grigsby MD Work Phone: [facility] 09-22-2023 09:56-0500 Heart rate 91 /min Nina Grigsby MD Work Phone: [facility] 03-04-2024 09:56-0500 Respiratory rate 18 /min Nina Grigsby MD Work Phone: [facility] 09-22-2023 09:56-0500 SaO2% (BldA) [Mass fraction] 99 % Nina Grigsby MD Work Phone: [facility] 09-22-2023 09:56-0500 Systolic blood pressure 142 mm[Hg] Nina Grigsby MD Work Phone: [facility] 08-25-2023 14:55-0500 Body height 168.3 cm Nina Grigsby MD Work Phone: [facility] 08-25-2023 14:55-0500 Body temperature 97.59 [degF] Nina Grigsby MD Work Phone: [facility] 08-25-2023 14:55-0500 Body weight 61.2 kg Nina Grigsby MD Work Phone: [facility] 08-25-2023 14:55-0500 Diastolic blood pressure 70 mm[Hg] Nina Grigsby MD Work Phone: [facility] 08-25-2023 14:55-0500 Heart rate 67 /min Nina Grigsby MD Work Phone: [facility] 08-25-2023 14:55-0500 Respiratory rate 18 /min Nina Grigsby MD Work Phone: [facility] 08-25-2023 14:55-0500 Systolic blood pressure 136 mm[Hg] Nina Grigsby MD Work Phone: [facility] 06-30-2023 15:09-0500 Body height 168.3 cm Nina Grigsby MD Work Phone: [facility] 06-30-2023 15:09-0500 Body temperature 97.11 [degF] Nina Grigsby MD Work Phone: [facility] 06-30-2023 15:09-0500 Body weight 63.05 kg Nina Grigsby MD Work Phone: [facility] 06-30-2023 15:09-0500 Diastolic blood pressure 66 mm[Hg] Nina Grigsby MD Work Phone: [facility] 06-30-2023 15:09-0500 Heart rate 84 /min Nina Grigsby MD Work Phone: [facility] 06-30-2023 15:09-0500 Respiratory rate 16 /min Nina Grigsby MD Work Phone: [facility] 06-30-2023 15:09-0500 Systolic blood pressure 119 mm[Hg] Nina Grigsby MD Work Phone: [facility] 06-13-2023 09:34-0500 Body temperature 97 [degF] Estella Bundridge [employer] C[employer] Work Phone: [facility] 06-13-2023 09:34-0500 Body weight 63.41 kg Estella Bundridge [employer] C[employer]GIVER Work Phone: [facility] 06-13-2023 09:34-0500 Diastolic blood pressure 78 mm[Hg] Estella Bundridge [employer] C[employer]GIVER Work Phone: [facility] 06-13-2023 09:34-0500 Heart rate 84 /min Estella Bundridge [employer] C[employer]GIVER Work Phone: [facility] 06-13-2023 09:34-0500 Respiratory rate 18 /min Estella Bundridge [employer] CAREGIVER Work Phone: [facility] 06-13-2023 09:34-0500 SaO2% (BldA) [Mass fraction] 98 % Estella Bundridge [employer] C[employer]GIVER Work Phone: [facility] 06-13-2023 09:34-0500 Systolic blood pressure 139 mm[Hg] Estella Bundridge [employer] CAREGIVER Work Phone: [facility] 06-02-2023 14:34-0500 Body height 168.3 cm Patricia Miller [employer] CAREGIVER Work Phone: [facility] 06-02-2023 14:34-0500 Body temperature 97.59 [degF] Patricia Miller [employer] CAREGIVER Work Phone: [facility] 06-02-2023 14:34-0500 Body weight 63.78 kg Patricia Miller [employer] CAREGIVER Work Phone: [facility] 06-02-2023 14:34-0500 Diastolic blood pressure 101 mm[Hg] Patricia Miller [employer] CAREGIVER Work Phone: [facility] 06-02-2023 14:34-0500 Heart rate 98 /min Patricia Miller [employer] CAREGIVER Work Phone: [facility] 06-02-2023 14:34-0500 Respiratory rate 16 /min Patricia Miller [employer] CAREGIVER Work Phone: [facility] 06-02-2023 14:34-0500 SaO2% (BldA) [Mass fraction] 97 % Patricia Miller [employer] CAREGIVER Work Phone: [facility] 06-02-2023 14:34-0500 Systolic blood pressure 160 mm[Hg] Patricia Miller [employer] CAREGIVER Work Phone: [facility] 05-30-2023 11:11-0500 Body temperature 97.3 [degF] JC Limon MD Work Phone: [facility] 05-30-2023 11:11-0500 Body weight 64.32 kg JC Limon MD Work Phone: [facility] 05-30-2023 11:11-0500 Diastolic blood pressure 114 mm[Hg] JC Limon MD Work Phone: [facility] 05-30-2023 11:11-0500 Heart rate 70 /min JC Limon MD Work Phone: [facility] 05-30-2023 11:11-0500 Respiratory rate 16 /min JC Limon MD Work Phone: [facility] 05-30-2023 11:11-0500 SaO2% (BldA) [Mass fraction] 100 % JC Limon MD Work Phone: [facility] 05-30-2023 11:11-0500 Systolic blood pressure 172 mm[Hg] JC Limon MD Work Phone: [facility] 05-16-2023 08:51-0400 Body height 168.3 cm Estella Bundridge [employer] C[employer]GIVER Work Phone: [facility] 05-16-2023 08:51-0400 Body temperature 97 [degF] Estella Bundridge [employer] CAREGIVER Work Phone: [facility] 05-16-2023 08:51-0400 Body weight 63.14 kg Estella Bundridge [employer] CAREGIVER Work Phone: [facility] 05-16-2023 08:51-0400 Diastolic blood pressure 85 mm[Hg] Estella Bundridge [employer] CAREGIVER Work Phone: [facility] 05-16-2023 08:51-0400 Heart rate 85 /min Estella Bundridge [employer] CAREGIVER Work Phone: [facility] 05-16-2023 08:51-0400 Respiratory rate 16 /min Estella Bundridge [employer] CAREGIVER Work Phone: [facility] 05-16-2023 08:51-0400 SaO2% (BldA) [Mass fraction] 98 % Estella Bundridge [employer] CAREGIVER Work Phone: [facility] 05-16-2023 08:51-0400 Systolic blood pressure 150 mm[Hg] Estella Bundridge [employer] C[employer]GIVER Work Phone: [facility] 04-01-2023 12:53-0400 Diastolic blood pressure 101 mm[Hg] Patricia Miller [employer] C[employer]GIVER Work Phone: [facility] 04-01-2023 12:53-0400 Heart rate 105 /min Patricia Miller [employer] C[employer]GIVER Work Phone: [facility] 04-01-2023 12:53-0400 Systolic blood pressure 191 mm[Hg] Patricia Miller [employer] C[employer]GIVER Work Phone: [facility] 04-01-2023 12:50-0400 Body height 168.3 cm Patricia Miller [employer] C[employer] CAREGIVER Work Phone: [facility] 04-01-2023 12:50-0400 Body temperature 97.81 [degF] Patricia Miller [employer] C[employer]GIVER Work Phone: [facility] 04-01-2023 12:50-0400 Body weight 62.96 kg Patricia Miller [employer] CAREGIVER Work Phone: [facility] 04-01-2023 12:50-0400 Respiratory rate 18 /min Patricia Miller [employer] CAREGIVER Work Phone: [facility] 04-01-2023 12:50-0400 SaO2% (BldA) [Mass fraction] 98 % Patricia Miller [employer] CAREGIVER Work Phone: [facility] 03-11-2023 13:40-0400 Body height 168.3 cm Nina Grigsby MD Work Phone: [facility] 03-11-2023 13:40-0400 Body temperature 97.59 [degF] Nina Grigsby MD Work Phone: [facility] 03-11-2023 13:40-0400 Body weight 62.14 kg Nina Grigsby MD Work Phone: [facility] 03-11-2023 13:40-0400 Diastolic blood pressure 74 mm[Hg] Nina Grigsby MD Work Phone: [facility] 03-11-2023 13:40-0400 Heart rate 75 /min Nina Grigsby MD Work Phone: [facility] 03-11-2023 13:40-0400 Respiratory rate 16 /min Nina Grigsby MD Work Phone: [facility] 03-11-2023 13:40-0400 SaO2% (BldA) [Mass fraction] 99 % Nina Grigsby MD Work Phone: [facility] 03-11-2023 13:40-0400 Systolic blood pressure 158 mm[Hg] Nina Grigsby MD Work Phone: [facility] 02-18-2023 16:06-0400 Diastolic blood pressure 97 mm[Hg] Chair Jose Work Phone: [facility] 02-18-2023 16:06-0400 Systolic blood pressure 183 mm[Hg] Chair [place] Work Phone: [facility] 02-18-2023 14:38-0400 Body height 168.3 cm Nina Grigsby MD Work Phone: [facility] 02-18-2023 14:38-0400 Body temperature 97.9 [degF] Nina Grigsby MD Work Phone: [facility] 02-18-2023 14:38-0400 Body weight 60.24 kg Nina Grigsby MD Work Phone: [facility] 02-18-2023 14:38-0400 Diastolic blood pressure 103 mm[Hg] Nina Grigsby MD Work Phone: [facility] 02-18-2023 14:38-0400 Heart rate 134 /min Nina Grigsby MD [facility] [facility] 02-18-2023 14:38-0400 Respiratory rate 16 /min Nina Grigsby MD Work Phone: [facility] 02-18-2023 14:38-0400 SaO2% (BldA) [Mass fraction] 98 % Nina Grigsby MD Work Phone: [facility] 02-18-2023 14:38-0400 Systolic blood pressure 161 mm[Hg] Nina Grigsby MD Work Phone: [facility] 01-03-2023 21:46-0400 Diastolic blood pressure 101 mm[Hg] MD Christina Azul Work Phone: [facility] 01-03-2023 21:46-0400 Heart rate 71 /min MD Christina Azul Work Phone: [facility] 01-03-2023 21:46-0400 Respiratory rate 18 /min MD Christina Azul Work Phone: [facility] 01-03-2023 21:46-0400 SaO2% (BldA) [Mass fraction] 98 % MD Christina Azul Work Phone: [facility] 01-03-2023 21:46-0400 Systolic blood pressure 173 mm[Hg] MD Christina Azul Work Phone: [facility] 01-03-2023 17:10-0400 Body height 170.18 cm MD Christina Azul Work Phone: [facility] 01-03-2023 17:10-0400 Body temperature 98.6 [degF] MD Christina Azul Work Phone: [facility] 01-03-2023 17:10-0400 Body weight 58.75 kg MD Christina Azul Work Phone: [facility] 12-17-2022 08:47-0400 Body height 168.3 cm Nina Grigsby MD Work Phone: [facility] 12-17-2022 08:47-0400 Body temperature 98.6 [degF] Nina Grigsby MD Work Phone: [facility] 12-17-2022 08:47-0400 Body weight 59.42 kg Nina Grigsby MD Work Phone: [facility] 12-17-2022 08:47-0400 Diastolic blood pressure 70 mm[Hg] Nina Grigsby MD Work Phone: [facility] 12-17-2022 08:47-0400 Heart rate 106 /min Nina Grigsby MD Work Phone: [facility] 12-17-2022 08:47-0400 Respiratory rate 16 /min Nina Grigsby MD Work Phone: [facility] 12-17-2022 08:47-0400 SaO2% (BldA) [Mass fraction] 96 % Nina Grigsby MD Work Phone: [facility] 12-17-2022 08:47-0400 Systolic blood pressure 122 mm[Hg] Nina Grigsby MD Work Phone: [facility] 11-25-2022 09:28-0400 Body height 168.3 cm Patricia Miller APRN.ELDERLY CAREGIVER Work Phone: [facility] 11-25-2022 09:28-0400 Body temperature 97.5 [degF] Patricia Miller BRASS CUTTER.ELDERLY CAREGIVER Work Phone: [facility] 11-25-2022 09:28-0400 Body weight 59.15 kg Patricia Miller APRN.ELDERLY CAREGIVER Work Phone: [facility] 11-25-2022 09:28-0400 Diastolic blood pressure 69 mm[Hg] Patricia Miller BRASS CUTTER.ELDERLY CAREGIVER Work Phone: [facility] 11-25-2022 09:28-0400 Heart rate 97 /min Patricia Miller APRN.ELDERLY CAREGIVER Work Phone: [facility] 11-25-2022 09:28-0400 Respiratory rate 16 /min Patricia Miller APRN.ELDERLY CAREGIVER Work Phone: [facility] 11-25-2022 09:28-0400 SaO2% (BldA) [Mass fraction] 99 % Patricia Miller APRN.ELDERLY CAREGIVER Work Phone: [facility] 11-25-2022 09:28-0400 Systolic blood pressure 108 mm[Hg] Patricia Miller BRASS CUTTER.ELDERLY CAREGIVER Work Phone: [facility] 11-20-2022 10:33-0400 Body temperature 97.7 [degF] JC Limon MD Work Phone: [facility] 11-20-2022 10:33-0400 Body weight 59.24 kg JC Limon MD Work Phone: [facility] 11-20-2022 10:33-0400 Diastolic blood pressure 73 mm[Hg] JC Limon MD Work Phone: [facility] 11-20-2022 10:33-0400 Heart rate 87 /min JC Limon MD Work Phone: [facility] 11-20-2022 10:33-0400 Respiratory rate 18 /min JC Limon MD Work Phone: [facility] 11-20-2022 10:33-0400 SaO2% (BldA) [Mass fraction] 97 % JC Limon MD Work Phone: [facility] 11-20-2022 10:33-0400 Systolic blood pressure 137 mm[Hg] JC Limon MD Work Phone: [facility] 11-18-2022 13:30-0400 Body height 168.3 cm Nina Grigsby MD Work Phone: [facility] 11-18-2022 13:30-0400 Body temperature 97.2 [degF] Nina Grigsby MD Work Phone: [facility] 11-18-2022 13:30-0400 Body weight 60.33 kg Nina Grigsby MD Work Phone: [facility] 11-18-2022 13:30-0400 Diastolic blood pressure 70 mm[Hg] Nina Grigsby MD Work Phone: [facility] 11-18-2022 13:30-0400 Heart rate 84 /min Nina Grigsby MD Work Phone: [facility] 11-18-2022 13:30-0400 Respiratory rate 16 /min Nina Grigsby MD Work Phone: [facility] 11-18-2022 13:30-0400 SaO2% (BldA) [Mass fraction] 100 % Nina Grigsby MD Work Phone: [facility] 11-18-2022 13:30-0400 Systolic blood pressure 124 mm[Hg] Nina Grigsby MD Work Phone: [facility] 11-11-2022 13:19-0400 Body height 168.3 cm Nina Grigsby MD Work Phone: [facility] 11-11-2022 13:19-0400 Body temperature 96.6 [degF] Nina Grigsby MD Work Phone: [facility] 11-11-2022 13:19-0400 Body weight 61.2 kg Nina Grigsby MD Work Phone: [facility] 11-11-2022 13:19-0400 Diastolic blood pressure 84 mm[Hg] Nina Grigsby MD Work Phone: [facility] 11-11-2022 13:19-0400 Heart rate 72 /min Nina Grigsby MD Work Phone: [facility] 11-11-2022 13:19-0400 Respiratory rate 18 /min Nina Grigsby MD Work Phone: [facility] 11-11-2022 13:19-0400 SaO2% (BldA) [Mass fraction] 96 % Nina Grigsby MD Work Phone: [facility] 11-11-2022 13:19-0400 Systolic blood pressure 162 mm[Hg] Nina Grigsby MD Work Phone: [facility] 11-04-2022 11:19-0400 Body temperature 97.7 [degF] JC Limon MD Work Phone: [facility] 11-04-2022 11:19-0400 Body weight 60.06 kg JC Limon MD Work Phone: [facility] 11-04-2022 11:19-0400 Diastolic blood pressure 84 mm[Hg] JC Limon MD Work Phone: [facility] 11-04-2022 11:19-0400 Heart rate 87 /min JC Limon MD Work Phone: [facility] 11-04-2022 11:19-0400 Respiratory rate 16 /min JC Limon MD Work Phone: [facility] 11-04-2022 11:19-0400 SaO2% (BldA) [Mass fraction] 95 % JC Limon MD Work Phone: [facility] 11-04-2022 11:19-0400 Systolic blood pressure 159 mm[Hg] JC Limon MD Work Phone: [facility] 10-31-2022 14:57-0400 Body height 168.3 cm Nina Grigsby MD Work Phone: [facility] 10-31-2022 14:57-0400 Body temperature 97.2 [degF] Nina Grigsby MD Work Phone: [facility] 10-31-2022 14:57-0400 Body weight 59.97 kg Nina Grigsby MD Work Phone: [facility] 10-31-2022 14:57-0400 Diastolic blood pressure 65 mm[Hg] Nina Grigsby MD Work Phone: [facility] 10-31-2022 14:57-0400 Heart rate 90 /min Nina Grigsby MD Work Phone: [facility] 10-31-2022 14:57-0400 Respiratory rate 16 /min Nina Grigsby MD Work Phone: [facility] 10-31-2022 14:57-0400 SaO2% (BldA) [Mass fraction] 100 % Nina Grigsby MD Work Phone: [facility] 10-31-2022 14:57-0400 Systolic blood pressure 114 mm[Hg] Nina Grigsby MD Work Phone: [facility] 10-21-2022 14:08-0400 Body height 168.3 cm Chair Mendez Work Phone: [facility] 10-21-2022 13:42-0400 Body height 169.5 cm JC Limon MD Work Phone: [facility] 10-21-2022 13:35-0400 Body height 169.7 cm Nina Grigsby MD Work Phone: [facility] 10-21-2022 13:35-0400 Body temperature 97.9 [degF] Nina Grigsby MD Work Phone: [facility] 10-21-2022 13:35-0400 Body weight 61.24 kg Nina Grigsby MD Work Phone: [facility] 10-21-2022 13:35-0400 Diastolic blood pressure 79 mm[Hg] Nina Grigsby MD Work Phone: [facility] 10-21-2022 13:35-0400 Heart rate 92 /min Nina Grigsby MD Work Phone: [facility] 10-21-2022 13:35-0400 Respiratory rate 16 /min Nina Grigsby MD Work Phone: [facility] 10-21-2022 13:35-0400 SaO2% (BldA) [Mass fraction] 97 % Nina Grigsby MD Work Phone: [facility] 10-21-2022 13:35-0400 Systolic blood pressure 129 mm[Hg] Nina Grigsby MD Work Phone: [facility] 10-15-2022 09:06-0400 Body height 167.6 cm Nina Grigsby MD Work Phone: [facility] 10-15-2022 09:06-0400 Body temperature 97 [degF] Nina Grigsby MD Work Phone: [facility] 10-15-2022 09:06-0400 Body weight 60.6 kg Nina Grigsby MD Work Phone: [facility] 10-15-2022 09:06-0400 Diastolic blood pressure 89 mm[Hg] Nina Grigsby MD Work Phone: [facility] 10-15-2022 09:06-0400 Heart rate 68 /min Nina Grigsby MD Work Phone: [facility] 10-15-2022 09:06-0400 Respiratory rate 16 /min Nina Grigsby MD Work Phone: [facility] 10-15-2022 09:06-0400 SaO2% (BldA) [Mass fraction] 94 % Nina Grigsby MD Work Phone: [facility] 10-15-2022 09:06-0400 Systolic blood pressure 158 mm[Hg] Nina Grigsby MD Work Phone: [facility] 09-23-2022 10:19-0500 Body height 167.6 cm Nina Grigsby MD Work Phone: [facility] 09-23-2022 10:19-0500 Body temperature 97.59 [degF] Nina Grigsby MD Work Phone: [facility] 09-23-2022 10:19-0500 Body weight 60.69 kg Nina Grigsby MD Work Phone: [facility] 09-23-2022 10:19-0500 Diastolic blood pressure 71 mm[Hg] Nina Grigsby MD Work Phone: [facility] 09-23-2022 10:19-0500 Heart rate 85 /min Nina Grigsby MD Work Phone: [facility] 09-23-2022 10:19-0500 Respiratory rate 16 /min Nina Grigsby MD Work Phone: [facility] 09-23-2022 10:19-0500 SaO2% (BldA) [Mass fraction] 96 % Nina Grigsby MD Work Phone: [facility] 09-23-2022 10:19-0500 Systolic blood pressure 113 mm[Hg] Nina Grigsby MD Work Phone: [facility] 08-20-2022 09:52-0500 Body height 167.6 cm Nina Grigsby MD Work Phone: [facility] 08-20-2022 09:52-0500 Body temperature 98.8 [degF] Nina Grigsby MD Work Phone: [facility] 08-20-2022 09:52-0500 Body weight 62.14 kg Nina Grigsby MD Work Phone: [facility] 08-20-2022 09:52-0500 Diastolic blood pressure 64 mm[Hg] Nina Grigsby MD Work Phone: [facility] 08-20-2022 09:52-0500 Heart rate 99 /min Nina Grigsby MD Work Phone: [facility] 08-20-2022 09:52-0500 Respiratory rate 16 /min Nina Grigsby MD Work Phone: [facility] 08-20-2022 09:52-0500 SaO2% (BldA) [Mass fraction] 96 % Nina Grigsby MD Work Phone: [facility] 08-20-2022 09:52-0500 Systolic blood pressure 122 mm[Hg] Nina Grigsby MD Work Phone: [facility] 06-25-2022 10:01-0500 Body height 167.6 cm Patricia Miller BRASS CUTTER.ELDERLY CAREGIVER Work Phone: [facility] 06-25-2022 10:01-0500 Body temperature 97.9 [degF] Patricia Miller BRASS CUTTER.ELDERLY CAREGIVER Work Phone: [facility] 06-25-2022 10:01-0500 Body weight 59.97 kg Patricia Miller APRN.ELDERLY CAREGIVER Work Phone: [facility] 06-25-2022 10:01-0500 Diastolic blood pressure 74 mm[Hg] Patricia Miller APRN.ELDERLY CAREGIVER Work Phone: [facility] 06-25-2022 10:01-0500 Heart rate 101 /min Patricia Miller APRN.ELDERLY CAREGIVER Work Phone: [facility] 06-25-2022 10:01-0500 Respiratory rate 16 /min Patricia Miller APRN.ELDERLY CAREGIVER Work Phone: [facility] 06-25-2022 10:01-0500 SaO2% (BldA) [Mass fraction] 94 % Patricia Miller APRN.ELDERLY CAREGIVER Work Phone: [facility] 06-25-2022 10:01-0500 Systolic blood pressure 139 mm[Hg] Patricia Miller APRN.ELDERLY CAREGIVER Work Phone: [facility] 04-22-2022 11:27-0400 Body temperature 96.91 [degF] JC Limon MD Work Phone: [facility] 04-22-2022 11:27-0400 Body weight 60.33 kg JC Limon MD Work Phone: [facility] 04-22-2022 11:27-0400 Diastolic blood pressure 90 mm[Hg] JC Limon MD Work Phone: [facility] 04-22-2022 11:27-0400 Heart rate 103 /min JC Limon MD Work Phone: [facility] 04-22-2022 11:27-0400 Respiratory rate 18 /min JC Limon MD Work Phone: [facility] 04-22-2022 11:27-0400 SaO2% (BldA) [Mass fraction] 100 % JC Limon MD Work Phone: [facility] 04-22-2022 11:27-0400 Systolic blood pressure 169 mm[Hg] JC Limon MD Work Phone: [facility] 04-15-2022 09:12-0400 Body temperature 96.69 [degF] JC Limon MD Work Phone: [facility] 04-15-2022 09:12-0400 Body weight 58.97 kg JC Limon MD Work Phone: [facility] 04-15-2022 09:12-0400 Diastolic blood pressure 87 mm[Hg] JC Limon MD Work Phone: [facility] 04-15-2022 09:12-0400 Heart rate 90 /min JC Limon MD Work Phone: [facility] 04-15-2022 09:12-0400 Respiratory rate 18 /min JC Limon MD Work Phone: [facility] 04-15-2022 09:12-0400 SaO2% (BldA) [Mass fraction] 100 % JC Limon MD Work Phone: [facility] 04-15-2022 09:12-0400 Systolic blood pressure 143 mm[Hg] JC Limon MD Work Phone: [facility] 04-08-2022 09:15-0400 Body temperature 97.39 [degF] JC Limon MD Work Phone: [facility] 04-08-2022 09:15-0400 Body weight 54.88 kg JC Limon MD Work Phone: [facility] 04-08-2022 09:15-0400 Diastolic blood pressure 79 mm[Hg] JC Limon MD Work Phone: [facility] 04-08-2022 09:15-0400 Heart rate 101 /min JC Limon MD Work Phone: [facility] 04-08-2022 09:15-0400 Respiratory rate 16 /min JC Limon MD Work Phone: [facility] 04-08-2022 09:15-0400 SaO2% (BldA) [Mass fraction] 100 % JC Limon MD Work Phone: [facility] 04-08-2022 09:15-0400 Systolic blood pressure 159 mm[Hg] JC Limon MD Work Phone: [facility] 04-01-2022 09:48-0400 Body temperature 97.39 [degF] JC Limon MD Work Phone: [facility] 04-01-2022 09:48-0400 Body weight 58.97 kg JC Limon MD Work Phone: [facility] 04-01-2022 09:48-0400 Heart rate 98 /min JC Limon MD Work Phone: [facility] 04-01-2022 09:48-0400 SaO2% (BldA) [Mass fraction] 100 % JC Limon MD Work Phone: [facility] 03-26-2022 08:50-0400 Body temperature 97.5 [degF] JC Limon MD Work Phone: [facility] 03-26-2022 08:50-0400 Body weight 58.97 kg JC Limon MD Work Phone: [facility] 03-26-2022 08:50-0400 Diastolic blood pressure 62 mm[Hg] JC Limon MD Work Phone: [facility] 03-26-2022 08:50-0400 Heart rate 92 /min JC Limon MD Work Phone: [facility] 03-26-2022 08:50-0400 Respiratory rate 16 /min JC Limon MD Work Phone: [facility] 03-26-2022 08:50-0400 SaO2% (BldA) [Mass fraction] 99 % JC Limon MD Work Phone: [facility] 03-26-2022 08:50-0400 Systolic blood pressure 114 mm[Hg] JC Limon MD Work Phone: [facility] 03-19-2022 09:20-0400 Body height 167.6 cm Patricia Miller APRN.ELDERLY CAREGIVER Work Phone: [facility] 03-19-2022 09:20-0400 Body temperature 97.59 [degF] Patricia Miller APRN.ELDERLY CAREGIVER Work Phone: [facility] 03-19-2022 09:20-0400 Body weight 59.51 kg Patricia Miller APRN.ELDERLY CAREGIVER Work Phone: [facility] 03-19-2022 09:20-0400 Diastolic blood pressure 78 mm[Hg] Patricia Miller APRN.ELDERLY CAREGIVER Work Phone: [facility] 03-19-2022 09:20-0400 Heart rate 90 /min Patricia Miller APRN.ELDERLY CAREGIVER Work Phone: [facility] 03-19-2022 09:20-0400 Respiratory rate 16 /min Patricia Miller APRN.ELDERLY CAREGIVER Work Phone: [facility] 03-19-2022 09:20-0400 SaO2% (BldA) [Mass fraction] 97 % Patricia Miller APRN.ELDERLY CAREGIVER Work Phone: [facility] 03-19-2022 09:20-0400 Systolic blood pressure 117 mm[Hg] Patricia Miller APRN.ELDERLY CAREGIVER Work Phone: [facility] 02-20-2022 14:20-0400 Body height 167.6 cm Patricia Miller APRN.ELDERLY CAREGIVER Work Phone: [facility] 02-20-2022 14:20-0400 Body temperature 97.2 [degF] Patricia Miller APRN.ELDERLY CAREGIVER Work Phone: [facility] 02-20-2022 14:20-0400 Body weight 59.88 kg Patricia Miller APRN.ELDERLY CAREGIVER Work Phone: [facility] 02-20-2022 14:20-0400 Diastolic blood pressure 60 mm[Hg] Patricia Miller APRN.ELDERLY CAREGIVER Work Phone: [facility] 02-20-2022 14:20-0400 Heart rate 108 /min Patricia Miller APRN.ELDERLY CAREGIVER Work Phone: [facility] 02-20-2022 14:20-0400 Respiratory rate 16 /min Patricia Miller APRN.ELDERLY CAREGIVER Work Phone: [facility] 02-20-2022 14:20-0400 SaO2% (BldA) [Mass fraction] 98 % Patricia Miller APRN.ELDERLY CAREGIVER Work Phone: [facility] 02-20-2022 14:20-0400 Systolic blood pressure 95 mm[Hg] Patricia Miller APRN.ELDERLY CAREGIVER Work Phone: [facility] 02-07-2022 15:33-0400 Body height 167.6 cm Patricia Miller APRN.ELDERLY CAREGIVER Work Phone: [facility] 02-07-2022 15:33-0400 Body temperature 97.59 [degF] Patricia Paul BRASS CUTTER.ELDERLY CAREGIVER Work Phone: [facility] 02-07-2022 15:33-0400 Body weight 59.42 kg Patricia Miller BRASS CUTTER.ELDERLY CAREGIVER Work Phone: [facility] 02-07-2022 15:33-0400 Diastolic blood pressure 59 mm[Hg] Patricia Miller BRASS CUTTER.ELDERLY CAREGIVER Work Phone: [facility] 02-07-2022 15:33-0400 Heart rate 110 /min Patricia Miller BRASS CUTTER.ELDERLY CAREGIVER Work Phone: [facility] 02-07-2022 15:33-0400 Respiratory rate 16 /min Patricia Miller BRASS CUTTER.ELDERLY CAREGIVER Work Phone: [facility] 02-07-2022 15:33-0400 SaO2% (BldA) [Mass fraction] 98 % Patricia Miller BRASS CUTTER.ELDERLY CAREGIVER Work Phone: [facility] 02-07-2022 15:33-0400 Systolic blood pressure 110 mm[Hg] Patricia Miller BRASS CUTTER.ELDERLY CAREGIVER Work Phone: [facility] 01-30-2022 15:11-0400 Body temperature 96.69 [degF] JC Limon MD Work Phone: [facility] 01-30-2022 15:11-0400 Body weight 60.33 kg JC Limon MD Work Phone: [facility] 01-30-2022 15:11-0400 Diastolic blood pressure 67 mm[Hg] JC Limon MD Work Phone: [facility] 01-30-2022 15:11-0400 Heart rate 91 /min JC Limon MD Work Phone: [facility] 01-30-2022 15:11-0400 SaO2% (BldA) [Mass fraction] 100 % JC Limon MD Work Phone: [facility] 01-30-2022 15:11-0400 Systolic blood pressure 106 mm[Hg] JC Limon MD Work Phone: [facility] 01-29-2022 08:42-0400 Body height 167.6 cm Verito Whelan MD Work Phone: [facility] 01-29-2022 08:42-0400 Body temperature 97.39 [degF] Verito Whelan MD Work Phone: [facility] 01-29-2022 08:42-0400 Body weight 58.8 kg Verito Whelan MD Work Phone: [facility] 01-29-2022 08:42-0400 Diastolic blood pressure 64 mm[Hg] Verito Whelan MD Work Phone: [facility] 01-29-2022 08:42-0400 Heart rate 60 /min Verito Whelan MD Work Phone: [facility] 01-29-2022 08:42-0400 SaO2% (BldA) [Mass fraction] 94 % Verito Whelan MD Work Phone: [facility] 01-29-2022 08:42-0400 Systolic blood pressure 139 mm[Hg] Verito Whelan MD Work Phone: [facility] 01-22-2022 13:39-0400 Body height 168.8 cm Nina Grigsby MD Work Phone: [facility] 01-22-2022 13:39-0400 Body temperature 98.01 [degF] Nina Grigsby MD Work Phone: [facility] 01-22-2022 13:39-0400 Body weight 59.78 kg Nina Grigsby MD Work Phone: [facility] 01-22-2022 13:39-0400 Diastolic blood pressure 61 mm[Hg] Nina Grigsby MD Work Phone: [facility] 01-22-2022 13:39-0400 Heart rate 90 /min Nina Grigsby MD Work Phone: [facility] 01-22-2022 13:39-0400 Respiratory rate 18 /min Nina Grigsby MD Work Phone: [facility] 01-22-2022 13:39-0400 SaO2% (BldA) [Mass fraction] 100 % Nina Grigsby MD Work Phone: [facility] 01-22-2022 13:39-0400 Systolic blood pressure 110 mm[Hg] Nina Grigsby MD Work Phone: [facility] 01-14-2022 08:21-0400 Body height 168.8 cm Nina Grigsby MD Work Phone: [facility] 01-14-2022 08:21-0400 Body temperature 97.2 [degF] Nina Grigsby MD Work Phone: [facility] 01-14-2022 08:21-0400 Body weight 60.24 kg Nina Grigsby MD Work Phone: [facility] 01-14-2022 08:21-0400 Diastolic blood pressure 65 mm[Hg] Nina Grigsby MD Work Phone: [facility] 01-14-2022 08:21-0400 Heart rate 85 /min Nina Grigsby MD Work Phone: [facility] 01-14-2022 08:21-0400 Respiratory rate 16 /min Nina Grigsby MD Work Phone: [facility] 01-14-2022 08:21-0400 SaO2% (BldA) [Mass fraction] 99 % Nina Grigsby MD Work Phone: [facility] 01-14-2022 08:21-0400 Systolic blood pressure 123 mm[Hg] Nina Grigsby MD Work Phone: [facility] 12-24-2021 09:26-0400 Body height 168.8 cm Nina Grigsby MD Work Phone: [facility] 12-24-2021 09:26-0400 Body temperature 97.81 [degF] iNna Grigsby MD Work Phone: [facility] 12-24-2021 09:26-0400 Body weight 61.05 kg Nina Grigsby MD Work Phone: [facility] 12-24-2021 09:26-0400 Diastolic blood pressure 70 mm[Hg] Nina Grigsby MD Work Phone: [facility] 12-24-2021 09:26-0400 Heart rate 81 /min Nina Grigsby MD Work Phone: [facility] 12-24-2021 09:26-0400 Respiratory rate 16 /min Nina Grigsby MD Work Phone: [facility] 12-24-2021 09:26-0400 SaO2% (BldA) [Mass fraction] 100 % Nina Grigsby MD Work Phone: [facility] 12-24-2021 09:26-0400 Systolic blood pressure 120 mm[Hg] Nina Grigsby MD Work Phone: [facility] 12-03-2021 09:29-0400 Body height 168.8 cm Yusef Jessica PA-C Work Phone: [facility] 12-03-2021 09:29-0400 Body temperature 97.81 [degF] Yusef Jessica PA-C Work Phone: [facility] 12-03-2021 09:29-0400 Body weight 59.69 kg Yusef Jessica PA-C Work Phone: [facility] 12-03-2021 09:29-0400 Diastolic blood pressure 63 mm[Hg] Yusef Jessica PA-C Work Phone: [facility] 12-03-2021 09:29-0400 Heart rate 92 /min Yusef Jessica PA-C Work Phone: [facility] 12-03-2021 09:29-0400 Respiratory rate 16 /min Yusef Jessica PA-C Work Phone: [facility] 12-03-2021 09:29-0400 SaO2% (BldA) [Mass fraction] 98 % Yusef Jessica PA-C Work Phone: [facility] 12-03-2021 09:29-0400 Systolic blood pressure 125 mm[Hg] Yusef Pandya PA-C Work Phone: [facility] 11-30-2021 10:29-0400 Body height 168.8 cm Patricia Miller BRASS CUTTER.ELDERLY CAREGIVER Work Phone: [facility] 11-30-2021 10:29-0400 Body temperature 97.3 [degF] Patricia Miller BRASS CUTTER.ELDERLY CAREGIVER Work Phone: [facility] 11-30-2021 10:29-0400 Body weight 58.24 kg Patricia Miller BRASS CUTTER.ELDERLY CAREGIVER Work Phone: [facility] 11-30-2021 10:29-0400 Diastolic blood pressure 55 mm[Hg] Patricia Miller BRASS CUTTER.ELDERLY CAREGIVER Work Phone: [facility] 11-30-2021 10:29-0400 Heart rate 90 /min Patricia Miller APRN.ELDERLY CAREGIVER Work Phone: [facility] 11-30-2021 10:29-0400 Respiratory rate 16 /min Patricia Miller APRN.ELDERLY CAREGIVER Work Phone: [facility] 11-30-2021 10:29-0400 SaO2% (BldA) [Mass fraction] 98 % Patricia Miller APRN.ELDERLY CAREGIVER Work Phone: [facility] 11-30-2021 10:29-0400 Systolic blood pressure 95 mm[Hg] Patricia Miller BRASS CUTTER.ELDERLY CAREGIVER Work Phone: [facility] 11-26-2021 09:24-0400 Body height 168.8 cm Nina Grigsby MD Work Phone: [facility] 11-26-2021 09:24-0400 Body temperature 97.5 [degF] Nina Grigsby MD Work Phone: [facility] 11-26-2021 09:24-0400 Body weight 59.06 kg Nina Grigsby MD Work Phone: [facility] 11-26-2021 09:24-0400 Diastolic blood pressure 65 mm[Hg] Nina Grigsby MD Work Phone: [facility] 11-26-2021 09:24-0400 Heart rate 75 /min Nina Grigsby MD Work Phone: [facility] 11-26-2021 09:24-0400 Respiratory rate 16 /min Nina Grigsby MD Work Phone: [facility] 11-26-2021 09:24-0400 SaO2% (BldA) [Mass fraction] 100 % Nina Grigsby MD Work Phone: [facility] 11-26-2021 09:24-0400 Systolic blood pressure 111 mm[Hg] Nian Grigsby MD Work Phone: [facility] 11-21-2021 15:10-0400 Body temperature 98.6 [degF] Chair [place] Work Phone: [facility] 11-21-2021 15:10-0400 Diastolic blood pressure 65 mm[Hg] Chair Jose Work Phone: [facility] 11-21-2021 15:10-0400 Heart rate 78 /min Chair [place] Work Phone: [facility] 11-21-2021 15:10-0400 Respiratory rate 16 /min Chair [place] Work Phone: [facility] 11-21-2021 15:10-0400 SaO2% (BldA) [Mass fraction] 99 % Chair [place] Work Phone: [facility] 11-21-2021 15:10-0400 Systolic blood pressure 119 mm[Hg] Chair [place] Work Phone: [facility] 11-19-2021 10:41-0400 Diastolic blood pressure 71 mm[Hg] Chair [place] Work Phone: [facility] 11-19-2021 10:41-0400 Systolic blood pressure 123 mm[Hg] Chair [place] Work Phone: [facility] 11-19-2021 09:20-0400 Body temperature 98.4 [degF] Chair [place] Work Phone: [facility] 11-19-2021 09:20-0400 Heart rate 90 /min Chair [place] Work Phone: [facility] 11-19-2021 09:20-0400 Respiratory rate 18 /min Chair Jose Work Phone: [facility] 11-19-2021 09:20-0400 SaO2% (BldA) [Mass fraction] 99 % Chair Jose Work Phone: [facility] 11-16-2021 10:13-0400 Diastolic blood pressure 95 mm[Hg] Chair [place] Work Phone: [facility] 11-16-2021 10:13-0400 Systolic blood pressure 170 mm[Hg] Chair Jose Work Phone: [facility] 11-16-2021 09:02-0400 Body temperature 97.39 [degF] Chair [place] Work Phone: [facility] 11-16-2021 09:02-0400 Heart rate 63 /min Chair Jose Work Phone: [facility] 11-16-2021 09:02-0400 Respiratory rate 18 /min Chair [place] Work Phone: [facility] 11-16-2021 09:02-0400 SaO2% (BldA) [Mass fraction] 99 % Chair Jose Work Phone: [facility] 11-15-2021 14:36-0400 Body temperature 97 [degF] Chair [place] Work Phone: [facility] 11-15-2021 14:36-0400 Diastolic blood pressure 74 mm[Hg] Chair [place] Work Phone: [facility] 11-15-2021 14:36-0400 Heart rate 65 /min Chair [place] Work Phone: [facility] 11-15-2021 14:36-0400 Respiratory rate 18 /min Chair [place] Work Phone: [facility] 11-15-2021 14:36-0400 SaO2% (BldA) [Mass fraction] 99 % Chair [place] Work Phone: [facility] 11-15-2021 14:36-0400 Systolic blood pressure 137 mm[Hg] Chair [place] Work Phone: [facility] 11-13-2021 11:36-0400 Diastolic blood pressure 69 mm[Hg] Chair [place] Work Phone: [facility] 11-13-2021 11:36-0400 Heart rate 70 /min Chair [place] Work Phone: [facility] 11-13-2021 11:36-0400 Respiratory rate 18 /min Chair Jose Work Phone: [facility] 11-13-2021 11:36-0400 SaO2% (BldA) [Mass fraction] 99 % Chair [place] Work Phone: [facility] 11-13-2021 11:36-0400 Systolic blood pressure 116 mm[Hg] Chair Jose Work Phone: [facility] 11-05-2021 08:52-0400 Body height 168.8 cm Patricia Miller APRN.ELDERLY CAREGIVER Work Phone: [facility] 11-05-2021 08:52-0400 Body temperature 97.3 [degF] Patricia Miller APRN.ELDERLY CAREGIVER Work Phone: [facility] 11-05-2021 08:52-0400 Body weight 58.6 kg Patricia Miller APRN.ELDERLY CAREGIVER Work Phone: [facility] 11-05-2021 08:52-0400 Diastolic blood pressure 66 mm[Hg] Patricia Miller APRN.ELDERLY CAREGIVER Work Phone: [facility] 11-05-2021 08:52-0400 Heart rate 93 /min Patricia Miller APRN.ELDERLY CAREGIVER Work Phone: [facility] 11-05-2021 08:52-0400 Respiratory rate 16 /min Patricia Miller APRN.ELDERLY CAREGIVER Work Phone: [facility] 11-05-2021 08:52-0400 SaO2% (BldA) [Mass fraction] 98 % Patricia Miller BRASS CUTTER.ELDERLY CAREGIVER Work Phone: [facility] 11-05-2021 08:52-0400 Systolic blood pressure 115 mm[Hg] Patricia Miller BRASS CUTTER.ELDERLY CAREGIVER Work Phone: [facility] 10-24-2021 14:18-0400 Body temperature 97.39 [degF] JC Limon MD Work Phone: [facility] 10-24-2021 14:18-0400 Body weight 58.51 kg JC Limon MD Work Phone: [facility] 10-24-2021 14:18-0400 Diastolic blood pressure 67 mm[Hg] JC Limon MD Work Phone: [facility] 10-24-2021 14:18-0400 Heart rate 101 /min JC Limon MD Work Phone: [facility] 10-24-2021 14:18-0400 Respiratory rate 16 /min JC Limon MD Work Phone: [facility] 10-24-2021 14:18-0400 SaO2% (BldA) [Mass fraction] 98 % JC Limon MD Work Phone: [facility] 10-24-2021 14:18-0400 Systolic blood pressure 111 mm[Hg] JC Limon MD Work Phone: [facility] 10-19-2021 09:58-0400 Body height 168.8 cm Renetta Ponce MD Work Phone: [facility] 10-19-2021 09:58-0400 Body temperature 97.59 [degF] Renetta Ponce MD Work Phone: [facility] 10-19-2021 09:58-0400 Body weight 58.33 kg Renetta Ponce MD Work Phone: [facility] 10-19-2021 09:58-0400 Diastolic blood pressure 72 mm[Hg] Renetta Ponce MD Work Phone: [facility] 10-19-2021 09:58-0400 Heart rate 98 /min Renetta Ponce MD Work Phone: [facility] 10-19-2021 09:58-0400 Respiratory rate 20 /min Renetta Ponce MD Work Phone: [facility] 10-19-2021 09:58-0400 SaO2% (BldA) [Mass fraction] 100 % Renetta Ponce MD Work Phone: [facility] 10-19-2021 09:58-0400 Systolic blood pressure 127 mm[Hg] Renetta Ponce MD Work Phone: [facility] 10-11-2021 15:44-0400 Body height 170.2 cm Aracelis Rehmans BRASS CUTTER.ELDERLY CAREGIVER Work Phone: [facility] 10-11-2021 15:44-0400 Body temperature 98.71 [degF] Aracelis Wegas BRASS CUTTER.ELDERLY CAREGIVER Work Phone: [facility] 10-11-2021 15:44-0400 Body weight 58.97 kg Aracelis Maygas BRASS CUTTER.ELDERLY CAREGIVER Work Phone: [facility] 10-11-2021 15:44-0400 Diastolic blood pressure 58 mm[Hg] Aracelis Wegas BRASS CUTTER.ELDERLY CAREGIVER Work Phone: [facility] 10-11-2021 15:44-0400 Heart rate 85 /min Aracelis Carrillo BRASS CUTTER.ELDERLY CAREGIVER Work Phone: [facility] 10-11-2021 15:44-0400 SaO2% (BldA) [Mass fraction] 98 % Aracelis Carrillo BRASS CUTTER.ELDERLY CAREGIVER Work Phone: [facility] 10-11-2021 15:44-0400 Systolic blood pressure 99 mm[Hg] Aracelis Carrillo BRASS CUTTER.ELDERLY CAREGIVER Work Phone: [facility] Encounters Encounter Date Encounter Type Care Provider Facility Start: 03-28-2024 End: 03-29-2024 Refill Estella Fish BRASS CUTTER.ELDERLY CAREGIVER Work Phone: Hematology/Oncology Comment on above: Refill Request Start: 03-19-2024 End: 03-20-2024 ambulatory Jair Magdalena Facility:[facility] Start: 03-19-2024 End: 03-20-2024 Evaluation and management of inpatient [facility] [place] [facility] Work Phone: Start: 03-19-2024 End: 03-20-2024 observation encounter NON STAFF [facility] Work Phone: Start: 03-19-2024 End: 03-19-2024 Emergency department patient visit [facility] Work Phone: Start: 03-18-2024 End: 03-18-2024 Emergency department patient visit [facility] Work Phone: Start: 03-18-2024 [...] Start: 03-17-2024 End: 03-17-2024 ambulatory ESTELLA FISH Facility:[facility] Start: 03-17-2024 End: 03-17-2024 Nutrition therapy Estella Fish BRASS CUTTER.ELDERLY CAREGIVER Work Phone: Palliative Medicine Comment on above: Encounter for pallia tive care (Primary Dx); Neuropathy due to chemotherapeutic drug (HCC); Neoplasm related pain; Chronic left shoulder pain; Malignant neoplasm of upper lobe of left lung (HCC); Nausea; Weight loss, unintentional; Protein-calorie malnutrition, unspecified severity (HCC); Anxiety Start: 03-17-2024 End: 03-17-2024 Telemedicine consultation with patient Estella Fihs APRN.ELDERLY CAREGIVER Work Phone: Palliative Medicine Start: 03-17-2024 End: 03-17-2024 ambulatory Enrique Esposito Facility:[facility] Start: 03-15-2024 End: 03-15-2024 Telephone encounter Denita Rai RN Work Phone: Hematology/Oncology Comment on above: Care Coordination (A ppointment Questions) Start: 03-15-2024 End: 03-15-2024 ambulatory MERARY LUCAS Facility:[facility] Start: 03-15-2024 End: 03-15-2024 Patient encounter procedure Merary Lucas MD Work Phone: Pulmonary Medicine Comment on above: Centrilobular emphys luke (HCC) (Primary Dx); Malignant neoplasm of upper lobe of left lung (HCC); Coronary artery disease involving hopi coronary artery of hopi heart without angina pectoris; PAD (peripheral artery disease) (HCC); Dyspnea on exertion Start: 03-09-2024 End: 03-11-2024 Telephone encounter Deborah Warner RN Hematology/Oncology Comment on above: Patient Update Orders Start: 03-09-2024 End: 03-10-2024 ambulatory Chair 21 Jose Work Phone: Hematology/Oncology Comment on above: Malignant neoplasm o f upper lobe of left lung (HCC) (Primary Dx) Start: 03-09-2024 End: 03-09-2024 Subsequent hospital visit by physician Arrival Time Radiology Work Phone: Radiology Pet CT Comment on above: 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] Start: 03-01-2024 Telephone encounter Estella Fish APRN.ELDERLY CAREGIVER Work Phone: Palliative Medicine Comment on above: Refill Request Start: 03-01-2024 End: 03-01-2024 ambulatory Enrique L Cate Facility:[facility] [place] Start: 02-24-2024 End: 03-10-2024 Telephone encounter Denita Rai RN Work Phone: Hematology/Oncology Comment on above: Care Coordination (A bnormal Neck CT) Start: 02-20-2024 Telephone encounter Denita rushing RN Work Phone: Hematology/Oncology Comment on above: Care Coordination (M edication Request) Numbness; Med Change Request Start: 02-18-2024 Telephone encounter eDnita rushing RN Work Phone: Hematology/Oncology Comment on above: Care Coordination (P t Update) Start: 02-16-2024 Telephone encounter Bernadine Rodriguez RN Work Phone: Hematology/Oncology Comment on above: Care Coordination (H ome oxygen) Start: 02-10-2024 Telephone encounter Denita rushing RN Work Phone: Hematology/Oncology Comment on above: Care Coordination (S hortness of Breath) Start: 02-07-2024 End: 02-07-2024 Emergency department patient visit [facility] Work Phone: Start: 02-06-2024 End: 02-06-2024 ambulatory Enrique L Cate Facility:[facility] [place] Start: 02-04-2024 Refill Nina Grigsby MD Work Phone: [facility] Comment on above: Refill Request Start: 02-03-2024 Telephone encounter Yusef springer PA-C [facility] Comment on above: Radiology US Start: 02-03-2024 End: 02-03-2024 Office outpatient visit 25 minutes Yusef LOPEZC Work Phone: Hematology/Oncology Comment on above: 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 ) Start: 01-12-2024 End: 01-12-2024 ambulatory [facility] Facility:[facility] Start: 01-09-2024 Telephone encounter Bernadine Rodriguez RN Work Phone: Hematology/Oncology Comment on above: Care Coordination (i nsomnia) Start: 01-08-2024 End: 01-08-2024 ambulatory [facility] Facility:[facility] Start: 12-26-2023 Telephone encounter Julieth Tapia RN [employer] Comment on above: Care Coordination (P ain ) Insurance Authorizat ion Insurance Authorizat ion (Oxy IR 10 mg) Start: 12-24-2023 Patient encounter procedure Hector Limon MD Work Phone: Radiation Oncology Start: [...] Start: 12-23-2023 End: 12-23-2023 ambulatory ENRIQUE ESPOSITO Facility:[facility] Start: 12-22-2023 End: 12-22-2023 Patient encounter procedure Hector Limon MD Work Phone: Radiation Oncology Comment on above: Malignant neoplasm o f upper lobe of left lung (HCC) (Primary Dx) Start: 12-22-2023 End: 12-22-2023 ambulatory Hector LIMON Facility:[facility] Start: 12-19-2023 End: 12-19-2023 ambulatory Hector LIMON Facility:[facility] Start: 12-18-2023 End: 12-18-2023 ambulatory Hector LIMON Facility:[facility] Start: 12-17-2023 End: 12-17-2023 ambulatory Hector LIMON Facility:[facility] Start: 12-16-2023 End: 12-16-2023 ambulatory Hector LIMON Facility:[facility] Start: 12-16-2023 End: 12-16-2023 Patient encounter procedure Hector Limon MD Work Phone: Radiation Oncology Comment on above: Malignant neoplasm o f upper lobe of left lung (HCC) (Primary Dx) Start: 12-16-2023 Telephone encounter Estella Fish APRN.CNP Work Phone: Radiation Oncology Comment on above: Patient Update; Medi cation Problem Start: 12-12-2023 End: 12-12-2023 ambulatory Hector LIMON Facility:[facility] Start: 12-11-2023 End: 12-11-2023 ambulatory Hector LIMON Facility:[facility] Start: 12-10-2023 End: 12-10-2023 ambulatory Hector LIMON Facility:[facility] Start: 12-10-2023 End: 12-10-2023 Patient encounter procedure Hector Limon MD Work Phone: Radiation Oncology Comment on above: Malignant neoplasm o f upper lobe of left lung (HCC) (Primary Dx) Start: 12-03-2023 End: 12-04-2023 Patient encounter procedure Hector Limon MD Work Phone: Radiation Oncology Comment on above: Malignant neoplasm o f upper lobe of left lung (HCC) (Primary Dx) Start: 12-03-2023 Radiation Oncology Note Hector Limon MD Work Phone: Radiation Oncology Comment on above: Simulation Note Treatment Planning Start: 12-03-2023 Telephone encounter Estella Fish APRN.CNP Work Phone: Radiation Oncology Comment on above: Patient Update Start: 12-03-2023 End: 12-03-2023 Subsequent hospital visit by physician Hector Limon MD Work Phone: Radiology [facility] Comment on above: Malignant neoplasm o f upper lobe of left lung (HCC) [C34.12] Start: 12-03-2023 End: 12-04-2023 ambulatory ENRIQUE ESPOSITO Facility:[facility] Start: 12-02-2023 End: 12-02-2023 ambulatory Chair 21 [place] Work Phone: Hematology/Oncology Comment on above: Malignant [...] Comment on above: Research (IRB [id number] Informed Consent) Start: 11-25-2023 End: 11-26-2023 ambulatory Chair 21 Jose Work Phone: Hematology/Oncology Comment on above: Malignant neoplasm o f upper lobe of left lung (HCC) (Primary Dx) Start: 11-24-2023 Telephone encounter Nina cutler MD Work Phone: Hematology/Oncology Comment on above: Orders Start: 11-21-2023 End: 11-21-2023 ambulatory ESTELLA FISH Facility:[facility] Start: 11-21-2023 End: 11-21-2023 Patient encounter procedure Estella Fish BRASS CUTTER.ELDERLY CAREGIVER Work Phone: Palliative Medicine Comment on above: [...] LFTs Start: 10-21-2023 Telephone encounter Estella Fish APRN.ELDERLY CAREGIVER Work Phone: Hematology/Oncology Comment on above: Pain Start: 10-21-2023 End: 10-21-2023 ambulatory ENRIQUE ESPOSITO Facility:[facility] Start: 10-20-2023 End: 10-20-2023 Refill Nina Grigsby MD Work Phone: 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); Tonsillar mass; Hypothyroidism due to medication; Cancer associated pain; Centrilobular emphysema (HCC) Start: 10-15-2023 End: 10-15-2023 ambulatory Enrique L Cate [facility] Start: 10-08-2023 End: 10-08-2023 ambulatory Enrique L Cate Facility:[facility] [place] Start: 09-22-2023 End: 09-22-2023 Nutrition therapy Dominique [...] Start: 09-15-2023 End: 09-15-2023 ambulatory NINA GRIGSBY Facility:[facility] Start: 09-02-2023 End: 09-02-2023 ambulatory Enrique L Cate Facility:[facility] Start: 08-26-2023 Telephone encounter Denita rushing RN [...] 08-20-2023 End: 08-20-2023 ambulatory Enrique L Cate Facility:[facility] [place] Start: 08-15-2023 End: 08-15-2023 ambulatory ESTELLA FISH Facility:[facility] Start: 07-28-2023 End: 07-28-2023 ambulatory PATRICIA MILLER Facility:[facility] Start: 07-23-2023 End: 07-23-2023 ambulatory Enrique L Cate [facility] Start: 07-09-2023 End: 07-09-2023 ambulatory Enrique L Cate [facility] Start: 06-30-2023 End: 06-30-2023 Patient encounter procedure Nina Grigsby MD Work Phone: ISSUE Start: 06-30-2023 End: 07-01-2023 ambulatory Nina Grigsby MD Work Phone: Hematology/Oncology Comment on above: 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); Tonsillar mass; Primary hypertension; Centrilobular emphysema (HCC); Coronary artery disease involving hopi coronary artery of hopi heart without angina pectoris; Hypothyroidism due to medication; Cancer related pain Start: 06-24-2023 End: 06-24-2023 ambulatory CHRISTINA AZLU Facility:[facility] Start: 06-23-2023 End: 06-23-2023 ambulatory Hector LIMON Facility:[facility] Start: 06-20-2023 End: 06-20-2023 ambulatory CHRISTINA AZUL Facility:[facility] Start: 06-19-2023 End: 06-19-2023 ambulatory CHRISTINA AZUL Facility:[facility] Start: 06-18-2023 End: 06-18-2023 ambulatory CHRISTINA AZUL Facility:[facility] Start: 06-13-2023 End: 06-13-2023 ambulatory ESTELLA FISH Facility:[facility] Start: 06-13-2023 End: 06-13-2023 Patient encounter procedure Estella Fish APRN.CNP Work Phone: Palliative Medicine Comment on above: Palliative care by s pecialist (Primary Dx); 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); Cancer related pain; Opioid contract exists; Insomnia due to medical condition; Anorexia; Protein-calorie malnutrition, unspecified severity (HCC); Nausea Start: 06-10-2023 End: 06-10-2023 Patient encounter procedure [facility] Provider [facility] Comment on above: Oropharnyx cancer (H CC) (Primary Dx) Start: 06-10-2023 Radiation Oncology Note Hector Limon MD Work Phone: Radiation Oncology Comment on above: Simulation Note Treatment Planning Start: 06-10-2023 End: 06-10-2023 ambulatory Hector LIMON Facility:[facility] Start: 06-03-2023 Refill Nina Grigsby MD Work Phone: Hematology/Oncology Comment on above: Erroneous encounter- disregard Start: 06-02-2023 End: 06-02-2023 Patient encounter procedure Patricia Miller APRN.ELDERLY CAREGIVER Work Phone: JOSE Start: 06-02-2023 End: 06-02-2023 ambulatory Patricia Miller APRN.ELDERLY CAREGIVER Work Phone: Hematology/Oncology Comment on above: Malignant neoplasm o f upper lobe of left lung (HCC) (Primary Dx); Centrilobular emphysema (HCC); CAD in hopi artery; PVD (peripheral vascular disease) (HCC); Cancer related pain; Tonsillar mass; Abnormal LFTs; Anxiety; Hypothyroidism due to medication Start: 05-30-2023 End: 05-30-2023 Patient encounter procedure Hector Limon MD Work Phone: Radiation Oncology Comment on above: Oropharnyx cancer (H CC) (Primary Dx) Start: 05-30-2023 End: 05-30-2023 ambulatory CHRISTINA AZUL Facility:[facility] Start: 05-27-2023 End: 05-27-2023 ambulatory NINA GRIGSBY Facility:[facility] Start: 05-27-2023 End: 05-27-2023 Patient encounter procedure [...] End: 05-16-2023 Patient encounter procedure Estella Fish BRASS CUTTER.ELDERLY CAREGIVER Work Phone: Palliative Medicine Comment on above: Palliative care by s pecialist (Primary Dx); Neuropathy due to chemotherapeutic drug (HCC) ; Nausea; Anorexia; Protein-calorie malnutrition, unspecified severity (HCC); Anxiety; Insomnia due to medical condition Refill Request Start: 05-16-2023 End: 05-16-2023 ambulatory ESTELLA FISH Facility:[facility] Start: 05-15-2023 Telephone encounter Denita rushing RN Work Phone: Hematology/Oncology Comment on above: Care Coordination (T SH Results) Care Coordination (P ain; Constipation) Start: 05-13-2023 Telephone encounter Analisa Villatoro [facility] Work Phone: Hematology/Oncology Comment on above: Treatment Planning Refill Request Start: 05-13-2023 End: 05-13-2023 ambulatory NINA GRIGSBY Facility:[facility] Start: 05-12-2023 End: 05-12-2023 ambulatory NINA GRIGSBY Facility:[facility] Start: 05-08-2023 Telephone encounter Denita rushing RN Work Phone: Hematology/Oncology Comment on above: Care Coordination (S ore Throat) Start: 05-05-2023 Refill Analisa Victor gracenathalia [facility] Work Phone: [facility] Comment on above: Refill Request Start: 04-23-2023 Telephone encounter Denita rushing RN Work Phone: Hematology/Oncology Comment on above: Care Coordination (T SH Results) Start: 04-22-2023 End: 04-23-2023 ambulatory NINA GRIGSBY Facility:[facility] Start: 04-22-2023 End: 04-22-2023 ambulatory CHRISTINA AZUL Facility:[facility] Start: 04-16-2023 End: 04-16-2023 ambulatory Enrique Esposito Facility:[facility] Start: 04-08-2023 Telephone encounter Denita rushing RN Work Phone: Hematology/Oncology Comment on above: Care Coordination (V accine Question) Start: 04-01-2023 End: 04-01-2023 Patient encounter procedure Patricia Miller APRN.ELDERLY CAREGIVER Work Phone: ISSUE Start: 04-01-2023 End: 04-01-2023 ambulatory Patricia Miller APRN.ELDERLY CAREGIVER Work Phone: Hematology/Oncology Comment on above: 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); Cancer related pain; Abnormal LFTs; Anxiety; Centrilobular emphysema (HCC); PVD (peripheral vascular disease) (HCC); Anemia due to antineoplastic chemotherapy; Skin rash Malignant neoplasm o f upper lobe of left lung (HCC) (Primary Dx) Start: 03-11-2023 End: 03-11-2023 ambulatory Chair 17 [address] Work Phone: Hematology/Oncology [...] Start: 01-28-2023 End: 01-28-2023 Patient encounter procedure Hector Limon MD Work Phone: Radiation Oncology Comment [...] faxed Start: 01-08-2023 Telephone encounter Minna Madrigal [employer] BILLING ANALYST H ematology/Oncology Comment on above: Social Work Services Appointment Start: 01-07-2023 Telephone encounter Patricia davidson OZZIEJudiELDERLY CAREGIVER Work Phone: Cancer Appts Comment on above: [...] patient visit MD Christina Azul Work Phone: [facility] Work Phone: Start: 01-03-2023 Telephone [...] JOSE Start: 11-25-2022 End: 11-25-2022 ambulatory Chair Rebecca Mendez Work Phone: Hematology/Oncology Comment on above: Malignant neoplasm o f upper lobe of left lung (HCC) (Primary Dx) Start: 11-25-2022 End: 11-25-2022 Nutrition therapy Patircia Miller APRN.ELDERLY CAREGIVER Work Phone: Hematology/Oncology Comment on above: Malignant neoplasm o f upper lobe of left lung (HCC) (Primary Dx); Centrilobular emphysema (HCC); Abnormal LFTs; Cancer related pain; PVD (peripheral vascular disease) (HCC); Malaise and fatigue; Protein-calorie malnutrition, unspecified severity (HCC) Start: 11-25-2022 End: 11-25-2022 Patient encounter procedure Patricia Miller APRN.ELDERLY CAREGIVER Work Phone: JOSE Start: 11-21-2022 Telephone encounter Nina cutler MD Work Phone: Hematology/Oncology Comment on above: Lab Orders Start: 11-20-2022 Telephone encounter Nina cutler MD Work Phone: Radiation Oncology Comment on above: Depression; Decrease d Appetite Start: 11-20-2022 End: 11-20-2022 Patient encounter procedure Hector Limon MD Work Phone: Radiation Oncology Comment [...] Lab Orders Start: 11-12-2022 Patient encounter procedure Hector Deon Limon MD Work Phone: ISSUE Start: 11-12-2022 Radiation Oncology Note G Vik [...] Start: 11-04-2022 End: 11-04-2022 Patient encounter procedure Hector Deon Limon MD Work Phone: Radiation Oncology [...] Start: 10-21-2022 End: 10-21-2022 Patient encounter procedure G Deon Limon MD Work Phone: [facility] Comment on above: Malignant neoplasm o f [...] encounter procedure Nina Grigsby MD Work Phone: [facility] Start: 10-10-2022 End: 10-10-2022 ambulatory [facility] Facility:[facility] Start: 09-23-2022 End: 09-23-2022 ambulatory Nina Grigsby MD Work Phone: Hematology/Oncology Comment on above: Malignant neoplasm o f upper lobe of left lung (HCC) (Primary Dx); Lung nodules; Centrilobular emphysema (HCC) Start: 09-23-2022 End: 09-23-2022 Patient encounter procedure Nina Grigsby MD Work Phone: JOSE Start: 09-20-2022 End: 09-20-2022 ambulatory [facility] Start: 09-19-2022 End: 09-20-2022 ambulatory [facility] Facility: Start: 09-18-2022 End: 09-18-2022 ambulatory [facility] Start: 09-11-2022 Telephone encounter Denita rushing [...] Start: 06-25-2022 End: 06-25-2022 ambulatory Patricia Miller APRN.ELDERLY CAREGIVER Work Phone: Hematology/Oncology Comment on above: Malignant neoplasm o f upper lobe of left lung (HCC) (Primary Dx); Anemia due to antineoplastic chemotherapy Start: 06-25-2022 End: 06-25-2022 Patient encounter procedure Patricia Miller APRN.ELDERLY CAREGIVER Work Phone: JOSE Comment on above: Thyroid cancer (HCC) (Primary Dx) Start: 06-11-2022 End: 06-11-2022 Patient encounter procedure Hector Limon MD Work Phone: Radiation Oncology Comment on above: Malignant neoplasm o f unspecified part of unspecified bronchus or lung (HCC) (Primary Dx) Start: 06-07-2022 Telephone encounter Hector Limon MD Work Phone: Radiation Oncology Comment on above: Patient Update; Appo intment Start: 06-06-2022 Telephone encounter Radha Palmer PA-C Work Phone: Pulmonary Medicine Comment on above: Follow Up Missed Duong ointment Start: 05-23-2022 End: 05-24-[address] BRANDON HENRY Facility:[facility] Start: 05-13-2022 Telephone encounter Radha LOPEZC Work Phone: Pulmonary Medicine Comment on above: Appointment Confirma tion (Confirmed/) Start: 05-01-2022 Patient encounter procedure Hector Limon MD Work Phone: ISSUE Start: 05-01-2022 Radiation Oncology Note Hector Limon MD Work Phone: Radiation Oncology Comment on above: Completion Note Start: 05-01-2022 End: 05-02-[address] CHRISTINA AZUL . Facility:[facility] Start: 04-29-2022 Refill Verito Whelan MD Work Phone: Radiation Oncology Comment on above: Refill Request Medication Problem Start: 04-22-2022 End: 04-22-2022 Patient encounter procedure Hector Limon MD Work Phone: Radiation Oncology Comment on above: Malignant neoplasm o f upper lobe of left lung (HCC) (Primary Dx) Start: 04-17-2022 Telephone encounter Patricia davidson APRN.CNP Work Phone: Hematology/Oncology Comment on above: Lab Orders Start: 04-15-2022 End: 04-15-2022 Patient encounter procedure Hector Limon MD Work Phone: Radiation Oncology Comment on above: Malignant neoplasm o f upper lobe of left lung (HCC) (Primary Dx) Start: 04-12-2022 End: 04-13-[address] BRANDON HENRY Facility:[facility] Start: 04-08-2022 End: 04-08-2022 Patient encounter procedure Hector Limon MD Work Phone: Radiation Oncology Comment on above: Cancer related pain (Primary Dx); Malignant neoplasm of unspecified part of unspecified bronchus or lung (HCC) Start: 04-03-2022 End: 04-03-[address] Work Phone: JOSE Start: 04-03-2022 End: 04-03-2022 Nutrition therapy Dominique Gray RD Work Phone: Nutrition Therapy Comment on above: Nutrition Assessment Start: 04-01-2022 End: 04-01-2022 Patient encounter procedure Hector Limon MD Work Phone: Radiation Oncology Comment on above: Malignant neoplasm o f upper lobe of left lung (HCC) (Primary Dx) Refill Request Start: 04-01-2022 Telephone encounter Hector Limon MD Work Phone: Radiation Oncology Comment on above: Patient Update Start: 03-26-2022 End: 03-26-2022 Patient encounter procedure Hector Limon MD Work Phone: Radiation Oncology Comment on above: Malignant neoplasm o f upper lobe of left lung (HCC) (Primary Dx) Start: 03-22-2022 End: 03-23-[address] BRANDON HENRY Facility:[facility] Start: 03-19-2022 End: 03-19-2022 ambulatory Patricia Miller APRN.ELDERLY CAREGIVER Work Phone: Hematology/Oncology Comment on above: Malignant neoplasm o f upper lobe of left lung (HCC) (Primary Dx); Anemia due to antineoplastic chemotherapy; Skin infection; Rash Start: 03-19-2022 End: 03-19-2022 Patient encounter procedure Patricia Miller APRN.ELDERLY CAREGIVER Work Phone: JOSE Start: 03-14-2022 End: 03-14-2022 Patient encounter procedure Hector Limon MD Work Phone: JOSE Comment on above: Malignant neoplasm o f upper lobe of left lung (HCC) (Primary Dx) Start: 03-14-2022 Radiation Oncology Note G Vik Limon MD Work Phone: Radiation Oncology Comment on above: Simulation Note Treatment Planning Start: 02-27-2022 End: 02-27-2022 Departed Referred AMRITA Swann Work Phone: [facility] [place] Start: 02-26-2022 Telephone encounter Denita rushing RN Work Phone: Hematology/Oncology Comment on above: Care Coordination (R shankar) Start: 02-22-2022 Refill Verito Whelan MD Work Phone: Pulmonary Medicine Comment on above: Refill Request Start: 02-20-2022 End: 02-20-2022 ambulatory Patricia Miller APRN.ELDERLY CAREGIVER Work Phone: Hematology/Oncology Comment on above: Malignant neoplasm o f upper lobe of left lung (HCC) (Primary Dx); Anemia due to antineoplastic chemotherapy; Acute kidney injury (HCC); Skin infection Start: 02-20-2022 End: 02-20-2022 Patient encounter procedure Patricia Miller APRN.ELDERLY CAREGIVER Work Phone: ISSUE Start: 02-11-2022 Telephone encounter Denita rushing RN Work Phone: Hematology/Oncology Comment on above: Care Coordination (R shankar) Start: 02-08-2022 Patient encounter procedure [facility] Provider [facility] Department Start: 02-08-2022 End: 02-08-[address] PATRICIA MILLER Facility:[facility] Start: 02-07-2022 End: 02-08-[address] PATRICIA MILLER Facility:[facility] Start: 02-07-2022 End: 02-07-2022 ambulatory Patricia Miller APRN.ELDERLY CAREGIVER Work Phone: Hematology/Oncology Comment on above: Malignant neoplasm o f upper lobe of left lung (HCC) (Primary Dx); Anemia due to antineoplastic chemotherapy; Acute kidney injury (HCC); Skin infection Start: 02-07-2022 End: 02-07-2022 Patient encounter procedure Patricia Miller APRN.ELDERLY CAREGIVER Work Phone: JOSE Start: 02-07-2022 Telephone encounter Patricia davidson APRN.ELDERLY CAREGIVER [facility]: [facility] Start: 01-30-2022 End: 01-30-2022 Patient encounter procedure Hector Limon MD Work Phone: Radiation Oncology Comment on above: Malignant neoplasm o f upper lobe of left lung (HCC) (Primary Dx) Start: 01-30-2022 ambulatory Merissa Fam RN Hematol ogy/Oncology Comment on above: Patient Education Start: 01-30-2022 Telephone encounter Patricia davidson APRN.ELDERLY CAREGIVER Work Phone: Hematology/Oncology Comment on above: Lab Orders Start: 01-29-2022 End: 01-29-2022 ambulatory [facility] Main 11 Other Phone: Pulmonary Medicine Comment on above: Spirometry Start: 01-29-2022 End: 01-29-2022 Patient encounter procedure [facility]m [facility] Main 11 Other Phone: [facility] Comment on above: Chronic obstructive [...] Nina Grigsby MD Work Phone: JOSE Start: 01-14-2022 Telephone encounter Nina cutler MD Work Phone: Hematology/Oncology Comment on above: Lab Orders Start: 01-14-2022 End: 01-14-2022 ambulatory Nina Grigsby MD Work Phone: Hematology/Oncology Comment on above: Malignant neoplasm o f upper lobe of left lung (HCC) (Primary Dx); Anemia due to antineoplastic chemotherapy; Skin infection Start: 01-14-2022 End: 01-14-2022 Patient encounter procedure Nina Grigsby MD Work Phone: JOSE Start: 01-09-2022 Telephone encounter Nina cutler MD [...] JOSE Start: 11-30-2021 Telephone encounter Patricia davidson APRN.ELDERLY CAREGIVER Work Phone: Cancer [facility] Comment on above: Future Appointment Lab Orders Start: 11-30-2021 End: 11-30-2021 ambulatory Patricia Miller APRN.ELDERLY CAREGIVER Work Phone: Hematology/Oncology Comment on above: Malignant neoplasm o f upper lobe of left lung (HCC) (Primary Dx); Acute kidney injury (HCC) Malignant neoplasm o f upper lobe of left lung (HCC) (Primary Dx) Start: 11-30-2021 End: 11-30-2021 Patient encounter procedure Patricia Miller APRN.ELDERLY CAREGIVER Work Phone: JOSE Start: 11-29-2021 Telephone encounter [...] Start: 11-21-2021 End: 11-21-2021 ambulatory Chair [address] [place] Work Phone: Hematology/Oncology Comment on above: Malignant [...] Start: 11-16-2021 End: 11-16-2021 ambulatory Chair 21 [place] Work Phone: Hematology/Oncology Comment on above: Acute kidney injury (HCC) (Primary Dx); Malignant neoplasm of upper lobe of left lung (HCC) Start: 11-15-2021 End: 11-15-2021 ambulatory Chair 21 [address] Work Phone: Hematology/Oncology Comment on above: Malignant neoplasm o f upper lobe of left lung (HCC) (Primary Dx) Start: 11-14-2021 Telephone encounter Denita rushing RN Work Phone: Hematology/Oncology Comment on above: Care Coordination (L ab Results) Start: 11-13-2021 End: 11-13-2021 ambulatory Chair 21 [address] Work Phone: Hematology/Oncology Comment on above: Malignant neoplasm o f upper lobe of left lung (HCC) (Primary Dx) Start: 11-12-2021 End: 11-12-2021 ambulatory Chair 21 Jose Work Phone: Hematology/Oncology [...] Start: 11-05-2021 End: 11-05-2021 ambulatory Patricia Miller APRN.ELDERLY CAREGIVER Work Phone: Hematology/Oncology Comment on above: Malignant neoplasm o f upper lobe of left lung (HCC) (Primary Dx) Start: 11-05-2021 End: 11-05-2021 Patient encounter procedure Patricia Miller APRN.ELDERLY CAREGIVER Work Phone: JOSE Start: 10-31-2021 Patient encounter procedure [facility] Provider [facility] Department Start: 10-31-2021 End: 10-31-2021 Subsequent hospital visit by physician Jenelle [facility] [place] (I-Stat/1.5t) Radiology Comment on above: Malignant neoplasm o f upper lobe of left lung (HCC) [C34.12] Start: 10-30-2021 Telephone encounter Denita rushing RN Work Phone: Hematology/Oncology Comment on above: Care Coordination (R esearch Trial) Lab Orders Start: 10-29-2021 ambulatory Katlin Omer [facility] Work Phone: Hematology/Oncology Comment on above: First Time Treatment Education First Time Treatment Education (Pemetrexed, Cisplatin) Start: 10-29-2021 Telephone encounter Denita rushing RN Work Phone: Hematology/Oncology Comment on above: Care Coordination (F olic Acid) Start: 10-29-2021 End: 10-29-2021 Nursing evaluation of patient and report [place] Nurse Kristofer Chang Work Phone: Hematology/Oncology Comment [...] Start: 10-24-2021 End: 10-25-2021 Patient encounter procedure Hector Limon MD Work Phone: Radiation Oncology Comment [...] procedure Renetta Ponce MD Work Phone: [facility] Start: 10-11-2021 End: 10-11-2021 Patient encounter procedure Aracelis Carrillo APRN.ELDERLY CAREGIVER Work Phone: Thoracic Clinic Comment on above: [...] End: 02-24-2019 Patient encounter procedure PROVIDER UNKNOWN Facility:[facility] Procedures Date Procedure Procedure Detail Performing Clinician [...] 03-19-2022 Adult depression scr eening assessment Patricia Miller BRASS CUTTER.ELDERLY CAREGIVER Work Phone: Start: 01-29-2022 Brncdilat rspse spmt ry pre&post-brncdilat admn Verito Whelan MD Work Phone: Start: 01-29-2022 Radiologic exam ches t 2 views Aracelis Carrillo BRASS CUTTER.ELDERLY CAREGIVER Work Phone: Start: 12-11-2021 Adult depression scr eening assessment Verito Whelan MD Work Phone: Start: 12-07-2021 PSA screening LOVE MARTINEZ Comment on above: Performed By: #### P SAD #### [facility] [address] [place] [address] Dr. Usama Hobbs Start: 11-21-2021 Basic metabolic [...] Start: 10-13-2030 Urine microalbumin profile [facility] Start: 03-18-2027 Diabetes Screening Diabetes Screenin g [facility] Start: 02-02-2027 Diabetes Screening Diabetes Screenin g [facility] Start: 12-22-2026 Diabetes Screening Diabetes Screenin g [facility] Start: 12-07-2026 PROSTATE CANCER SCREENING DISCUSSION PROSTATE CANCER SCREENING DISCUSSION [facility] Start: 12-07-2026 Prostate specific antigen measurement Prostate Cancer Screening Discussion [facility] Start: 11-24-2026 Diabetes Screening Diabetes Screenin g [facility] Start: 11-03-2026 Diabetes Screening Diabetes Screenin g [facility] Start: 10-19-2026 Diabetes Screening Diabetes Screenin g [facility] Start: 09-21-2026 Diabetes Screening Diabetes Screenin g [facility] Start: 08-25-2026 Diabetes Screening Diabetes Screenin g [facility] Start: 06-30-2026 Diabetes Screening Diabetes Screenin g [facility] Start: 06-02-2026 Diabetes Screening Diabetes Screenin g [facility] Start: 05-13-2026 Diabetes Screening Diabetes Screenin g [facility] Start: 04-22-2026 Diabetes Screening Diabetes Screenin g [facility] Start: 04-01-2026 Diabetes Screening Diabetes Screenin g [facility] Start: 03-11-2026 DIABETES SCREEN DIABETES SCREEN [facility] Start: 02-18-2026 DIABETES SCREEN DIABETES SCREEN [facility] Start: 01-28-2026 DIABETES SCREEN DIABETES SCREEN [facility] Start: 01-07-2026 DIABETES SCREEN DIABETES SCREEN [facility] Start: 12-27-2025 DIABETES SCREEN DIABETES SCREEN [facility] Start: 12-17-2025 DIABETES SCREEN DIABETES SCREEN [facility] Start: 11-25-2025 DIABETES SCREEN DIABETES SCREEN [facility] Start: 11-18-2025 DIABETES SCREEN DIABETES SCREEN [facility] Start: 11-11-2025 DIABETES SCREEN DIABETES SCREEN [facility] Start: 10-31-2025 DIABETES SCREEN DIABETES SCREEN [facility] Start: 10-21-2025 DIABETES SCREEN DIABETES SCREEN [facility] Start: 09-23-2025 DIABETES SCREEN DIABETES SCREEN [facility] Start: 08-20-2025 DIABETES SCREEN DIABETES SCREEN [facility] Start: 06-25-2025 DIABETES SCREEN DIABETES SCREEN [facility] Start: 04-30-2025 DIABETES SCREEN DIABETES SCREEN [facility] Start: 03-19-2025 DIABETES SCREEN DIABETES SCREEN [facility] Start: 03-15-2025 BP Controlled (<130/80) BP Controlle d (<130/80) [facility] Start: 02-20-2025 DIABETES SCREEN DIABETES SCREEN [facility] Start: 02-07-2025 DIABETES SCREEN DIABETES SCREEN [facility] Start: 02-02-2025 BP Controlled (<130/80) BP Controlle d (<130/80) [facility] Start: 01-22-2025 DIABETES SCREEN DIABETES SCREEN [facility] Start: 01-14-2025 DIABETES SCREEN DIABETES SCREEN [facility] Start: 01-03-2025 DIABETES SCREEN DIABETES SCREEN [facility] Start: 12-24-2024 DIABETES SCREEN DIABETES SCREEN [facility] Start: 12-11-2024 DIABETES SCREEN DIABETES SCREEN [facility] Start: 12-03-2024 DIABETES SCREEN DIABETES SCREEN [facility] Start: 11-30-2024 DIABETES SCREEN DIABETES SCREEN [facility] Start: 11-26-2024 DIABETES SCREEN DIABETES SCREEN [facility] Start: 11-21-2024 DIABETES SCREEN DIABETES SCREEN [facility] Start: 11-19-2024 DIABETES SCREEN DIABETES SCREEN [facility] Start: 11-16-2024 DIABETES SCREEN DIABETES SCREEN [facility] Start: 11-14-2024 DIABETES SCREEN DIABETES SCREEN [facility] Start: 11-12-2024 DIABETES SCREEN DIABETES SCREEN [facility] Start: 11-05-2024 DIABETES SCREEN DIABETES SCREEN [facility] Start: 10-04-2024 DIABETES SCREEN DIABETES SCREEN [facility] Start: 06-30-2024 BP Controlled (<130/80) BP Controlle d (<130/80) [facility] Start: 05-05-2024 End: 05-05-2024 Patient encounter procedure Pulmonary Medicine Comment on above: Centrilobular emphys luke (HCC) [J43.2] Start: 04-20-2024 ambulatory Ambulatory Facility:[facility] Start: 04-14-2024 End: 04-14-2024 Patient encounter procedure 04/14/2024 10:30 AM EDT Office Visit Palliative Medicine [address] [place] [address] Estella Fish APRN.ELDERLY CAREGIVER [address] [place] [address] 4 week follow up-in person Palliative Medicine Comment on above: 4 week follow up-in person Start: 04-12-2024 ambulatory Ambulatory Facility:[facility] Start: 03-23-2024 Magnetic resonance angiography of head without contrast MR angio MR brain w/o [facility] Start: 03-21-2024 Covid-19 Vaccine ( season) Covid-19 Vaccine () [facility] Start: 03-21-2024 Influenza vaccination [facility] Start: 03-20-2024 [facility] Start: 03-19-2024 Referral to neurologist [facility] Start: 03-19-2024 Hospital admission [facility] Start: 03-18-2024 Plain chest X-ray XR chest 2V* [facility] Start: 03-18-2024 [facility] Start: 03-18-2024 End: 03-18-2024 Follow-up encounter 03/18/2024 1:30 PM EDT Visit (SP) Office Hematology/Oncology [address] [place] [address] Nina Grigsby MD [address] [place] [address] 6 week follow up Hematology/Oncology Comment on above: 6 week follow up Start: 03-18-2024 End: 03-18-2024 Patient encounter procedure [facility] Comment on above: 6 week follow up PRINT SCHEDULE Start: 03-17-2024 End: 03-17-2024 Patient encounter procedure 03/17/2024 10:30 AM EDT Office Visit Palliative Medicine [address] [place] [address] Estella Fish, BRASS CUTTER.ELDERLY CAREGIVER [address] [place] [address] 3 month follow up Palliative Medicine Comment on above: 3 month follow up Start: 03-15-2024 End: 03-15-2024 Patient encounter procedure 03/15/2024 1:00 PM EDT Office Visit Pulmonary Medicine [address] [place] [address] [place] [address] [place] [address] *jose called and requested appointment Pulmonary Medicine Comment on above: *jose called and requested appointment Start: 03-09-2024 End: 03-09-2024 Patient encounter procedure 03/09/2024 9:00 AM EDT Appointment Radiology [facility] CT [address] [place] [address] Comment on above: PET Start: 02-27-2024 End: 02-27-2024 Patient encounter procedure 02/27/2024 10:30 AM EDT Office Visit Palliative Medicine 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 Expected: 02/03/2024, Expires: 05/04/2024 [facility] Comment on above: Expected: 02/03/2024 , Expires: 05/04/2024 Start: 02-03-2024 End: 05-04-2024 Comprehensive metabolic 2000 panel - Serum or Plasma COMPREHENSIVE METABOLIC PANEL Lab Routine 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 Expected: 02/03/2024, Expires: 05/04/2024 [facility] Work Phone: Comment on above: Expected: 02/03/2024 , Expires: 05/04/2024 Start: 02-03-2024 End: 05-04-2024 Thyrotropin [Units/volume] in Serum or Plasma THYROID STIMULATING HORMONE Lab Routine 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 [place] [address] Yusef Pandya, PA-C [address] [place] [address] 6 week follow up Hematology/Oncology Comment on above: 6 week follow up Start: 02-03-2024 End: 02-03-2024 Patient encounter procedure 02/03/2024 11:15 AM EDT Office Visit [facility] 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) Expected: 01/27/2024, Expires: 04/27/2024 [facility] Comment on above: Expected: 01/27/2024 , Expires: 04/27/2024 Start: 01-27-2024 End: 04-27-2024 Comprehensive metabolic 2000 panel - Serum or Plasma COMPREHENSIVE METABOLIC PANEL Lab Routine 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) Expected: 01/27/2024, Expires: 04/27/2024 [facility] Work Phone: Comment on above: Expected: 01/27/2024 , Expires: 04/27/2024 Start: 12-30-2023 End: 12-30-2023 ambulatory 12/30/2023 11:30 AM EDT Visit (SP) Office Hematology/Oncology [address] [place] [address] [place] [address] Yunior Thacker LMT [address] [place] [address] [place] [address] Massage pt in the lobby Hematology/Oncology Comment on above: Massage pt in the lobby Start: 12-24-2023 End: 12-24-2023 Patient encounter procedure Radiation Oncology Comment on above: Chest wall Chest wall- do compl etion tasks for both areas Start: 12-23-2023 End: 12-23-2023 Follow-up encounter 12/23/2023 2:45 PM EDT Visit (SP) Office Hematology/Oncology [address] [place] [address] [place] [address] Nina Grigsby MD [address] [place] [address] [place] [address] 3 week follow up after Dr. Limon consult and XRT Hematology/Oncology Comment on above: 3 week follow up aft er Dr. Limon consult and XRT Start: 12-23-2023 End: 12-23-2023 Patient encounter procedure [facility] Comment on above: 3 week follow up aft er Dr. Limon consult and XRT Chest wall- grigsby\T \ labs 2:30 Start: 12-23-2023 End: 12-23-2023 Patient encounter procedure 12/23/2023 10:15 AM EDT Appointment Radiation Oncology [address] [place] [address] Chest wall Radiation Oncology Comment on above: Chest wall Start: 12-22-2023 End: 12-22-2023 Patient encounter procedure Radiation Oncology Comment on above: Chest wall Location: [facility] Start: 12-19-2023 End: 12-19-2023 Patient encounter procedure 12/19/2023 10:45 AM EDT Appointment Radiation Oncology [address] [place] [address] Chest wall Radiation Oncology Comment on above: Chest wall Start: 12-18-2023 BP CONTROLLED (<130/80) BP CONTROLLE D (<130/80) [facility] Start: 12-18-2023 End: 12-18-2023 Patient encounter procedure 12/18/2023 2:00 PM EDT Appointment Radiation Oncology [address] [place] [address] Chest wall Radiation Oncology Comment on above: Chest wall Start: 12-17-2023 End: 12-17-2023 Patient encounter procedure 12/17/2023 12:15 PM EDT Appointment Radiation Oncology [address] [place] [address] Neck and Chest wall Radiation Oncology Comment [...] (<130/80) BP CONTROLLE D (<130/80) [facility] Start: 11-25-2023 End: 02-24-2024 CBC W Auto Differential panel - Blood COMPLETE BLOOD COUNT AND DIFFERENTIAL Lab Routine Malignant neoplasm of upper lobe of left lung (HCC) Expected: 11/25/2023 (Approximate), Expires: 02/24/2024 [facility] Work Phone: Comment on above: Expected: 11/25/2023 (Approximate), Expires: 02/24/2024 Start: 11-25-2023 End: 02-24-2024 Comprehensive metabolic 2000 panel - Serum or Plasma COMPREHENSIVE METABOLIC PANEL Lab Routine Malignant neoplasm of upper lobe of left lung (HCC) Expected: 11/25/2023 (Approximate), Expires: 02/24/2024 [facility] Comment on above: Expected: 11/25/2023 (Approximate), Expires: 02/24/2024 Start: 11-25-2023 End: 02-24-2024 Thyrotropin [Units/volume] in Serum or Plasma THYROID STIMULATING HORMONE Lab Routine Malignant neoplasm of upper lobe of left lung (HCC) Expected: 11/25/2023 (Approximate), Expires: 02/24/2024 [facility] Comment on above: Expected: 11/25/2023 (Approximate), Expires: 02/24/2024 Start: 11-25-2023 End: 11-25-2023 Patient encounter procedure 11/25/2023 10:45 AM EDT Appointment Radiology Pet CT [address] [place] [address] Comment on above: PET Start: 11-21-2023 End: 11-21-2023 Patient encounter procedure 11/21/2023 10:00 AM EDT Office Visit Palliative Medicine 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 CAREGIVER [address] [place] [address] 3 month follow up Palliative Medicine Comment on above: 3 month follow up Start: 11-19-2023 BP CONTROLLED (<130/80) BP CONTROLLE D (<130/80) [facility] Start: 11-01-2023 BP CONTROLLED (<130/80) BP CONTROLLE D (<130/80) [facility] Start: 10-29-2023 BP CONTROLLED (<130/80) BP CONTROLLE D (<130/80) [facility] Start: 10-22-2023 BP CONTROLLED (<130/80) BP CONTROLLE D (<130/80) [facility] Start: 09-24-2023 BP CONTROLLED (<130/80) BP CONTROLLE D (<130/80) [facility] Start: 08-25-2023 End: 11-24-2023 T4/FTI/T4U [facility] Work Phone: Comment on above: Expected: 08/25/2023 , Expires: 11/24/2023 Start: 08-25-2023 End: 11-24-2023 Thyrotropin [Units/volume] in Serum or Plasma [facility] Work Phone: Comment on above: Expected: 08/25/2023 , Expires: 11/24/2023 Start: 08-20-2023 BP CONTROLLED (<130/80) BP CONTROLLE D (<130/80) [facility] Start: 07-21-2023 Advance Directive Discussion Advance Directive Discussion [facility] Start: 07-21-2023 Behavioral Health Screening Behavioral Health Screening [facility] Start: 07-21-2023 Depression Assessment Depression Ass essment [facility] Start: 07-01-2023 End: 09-30-2023 CBC W Auto Differential panel - Blood CBC + DIFF Lab Routine Malignant neoplasm of upper lobe of left lung (HCC) Centrilobular emphysema (HCC) CAD in hopi artery PVD (peripheral vascular disease) (HCC) Cancer related pain Tonsillar mass Abnormal LFTs Anxiety Hypothyroidism due to medication Expected: 07/01/2023, Expires: 09/30/2023 [facility] Work Phone: Comment on above: Expected: 07/01/2023 , Expires: 09/30/2023 Start: 07-01-2023 End: 09-30-2023 Comprehensive metabolic 2000 panel - Serum or Plasma COMP METABOLIC PANEL Lab Routine Malignant neoplasm of upper lobe of left lung (HCC) Centrilobular emphysema (HCC) CAD in hopi artery PVD (peripheral vascular disease) (HCC) Cancer related pain Tonsillar mass Abnormal LFTs Anxiety Hypothyroidism due to medication Expected: 07/01/2023, Expires: 09/30/2023 [facility] Work Phone: Comment on above: Expected: 07/01/2023 , Expires: 09/30/2023 Start: 07-01-2023 End: 09-30-2023 Thyrotropin [Units/volume] in Serum or Plasma TSH BLD Lab Routine Malignant neoplasm of upper lobe of left lung (HCC) Centrilobular emphysema (HCC) CAD in hopi artery PVD (peripheral vascular disease) (HCC) Cancer related pain Tonsillar mass Abnormal LFTs Anxiety Hypothyroidism due to medication Expected: 07/01/2023, Expires: 09/30/2023 [facility] Work Phone: Comment on above: Expected: 07/01/2023 , Expires: 09/30/2023 Start: 06-13-2023 End: 09-12-2023 TOX SCREEN ROUT UR TOX SCREEN ROUT UR Lab Routine Opioid contract exists Expected: 06/13/2023, Expires: 09/12/2023 [facility] Work Phone: Comment on above: Expected: 06/13/2023 , Expires: 09/12/2023 Start: 06-11-2023 BP CONTROLLED (<130/80) BP CONTROLLE D (<130/80) [facility] Start: 06-02-2023 End: 09-01-2023 CBC W Auto Differential panel - Blood CBC + DIFF Lab Routine Malignant neoplasm of upper lobe of left lung (HCC) Expected: 06/02/2023, Expires: 09/01/2023 [facility] Work Phone: Comment on above: Expected: 06/02/2023 , Expires: 09/01/2023 Start: 04-22-2023 End: 06-22-2023 CBC W Auto Differential panel - Blood CBC + DIFF Lab Routine 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) Cancer related pain Abnormal LFTs Anxiety Centrilobular emphysema (HCC) PVD (peripheral vascular disease) (HCC) Anemia due to antineoplastic chemotherapy Skin rash Expected: 04/22/2023, Expires: 06/22/2023 [facility] Work Phone: Comment on above: Expected: 04/22/2023 , Expires: 06/22/2023 Start: 04-22-2023 End: 06-22-2023 Comprehensive metabolic 2000 panel - Serum or Plasma COMP METABOLIC PANEL Lab Routine 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) Cancer related pain Abnormal LFTs Anxiety Centrilobular emphysema (HCC) PVD (peripheral vascular disease) (HCC) Anemia due to antineoplastic chemotherapy Skin rash Expected: 04/22/2023, Expires: 06/22/2023 [facility] Work Phone: Comment on above: Expected: 04/22/2023 , Expires: 06/22/2023 Start: 04-22-2023 End: 06-22-2023 Thyrotropin [Units/volume] in Serum or Plasma TSH BLD Lab Routine 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) Cancer related pain Abnormal LFTs Anxiety Centrilobular emphysema (HCC) PVD (peripheral vascular disease) (HCC) Anemia due to antineoplastic chemotherapy Skin rash Expected: 04/22/2023, Expires: 06/22/2023 [facility] Work Phone: Comment on above: Expected: 04/22/2023 , Expires: 06/22/2023 Start: 03-26-2023 BP CONTROLLED (<130/80) BP CONTROLLE D (<130/80) [facility] Start: 03-21-2023 Covid-19 Vaccine ( season) Covid-19 Vaccine () [facility] Start: 03-21-2023 Influenza vaccination [facility] Start: 03-19-2023 Adult depression screening assessment DEPRESSION SCREENING [facility] Start: 03-19-2023 BP CONTROLLED (<130/80) BP CONTROLLE D (<130/80) [facility] Start: 03-11-2023 End: 05-11-2023 T4/FTI/T4U [facility] Work Phone: Comment on above: Expected: 03/11/2023 , Expires: 05/11/2023 Start: 03-11-2023 End: 05-11-2023 Thyrotropin [Units/volume] in Serum or Plasma [facility] Work Phone: Comment on above: Expected: 03/11/2023 , Expires: 05/11/2023 Start: 02-20-2023 BP CONTROLLED (<130/80) BP CONTROLLE D (<130/80) [facility] Start: 02-08-2023 COLORECTAL CANCER SCREENING COLORECTAL CANCER SCREENING [facility] Start: 02-08-2023 FECAL OCCULT BLOOD FECAL OCCULT BLOO D [facility] Start: 02-08-2023 Screening for malign ant neoplasm of colon [facility] Start: 02-07-2023 BP CONTROLLED (<130/80) BP CONTROLLE D (<130/80) [facility] Start: 01-30-2023 BP CONTROLLED (<130/80) BP CONTROLLE D (<130/80) [facility] Start: 01-22-2023 BP CONTROLLED (<130/80) BP CONTROLLE D (<130/80) [facility] Start: 01-14-2023 BP CONTROLLED (<130/80) BP CONTROLLE D (<130/80) [facility] Start: 01-07-2023 End: 03-09-2023 Thyrotropin [Units/volume] in Serum or Plasma [facility] Work Phone: Comment on above: Expected: 01/07/2023 , Expires: 03/09/2023 Start: 12-27-2022 End: 02-26-2023 Comprehensive metabolic 2000 panel - Serum or Plasma COMP METABOLIC PANEL Lab Routine 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) Abnormal LFTs Expected: 12/27/2022 (Approximate), Expires: 02/26/2023 [facility] Work Phone: Comment on above: Expected: 12/27/2022 (Approximate), Expires: 02/26/2023 Start: 12-24-2022 BP CONTROLLED (<130/80) BP CONTROLLE D (<130/80) [facility] Start: 12-16-2022 End: 02-15-2023 CBC W Auto Differential panel - Blood CBC + DIFF Lab Routine Malignant neoplasm of upper lobe of left lung (HCC) Centrilobular emphysema (HCC) Abnormal LFTs Cancer related pain PVD (peripheral vascular disease) (HCC) Malaise and fatigue Expected: 12/16/2022, Expires: 02/15/2023 [facility] Work Phone: Comment on above: Expected: 12/16/2022 , Expires: 02/15/2023 Start: 12-16-2022 End: 02-15-2023 Comprehensive metabolic 2000 panel - Serum or Plasma COMP METABOLIC PANEL Lab Routine Malignant neoplasm of upper lobe of left lung (HCC) Centrilobular emphysema (HCC) Abnormal LFTs Cancer related pain PVD (peripheral vascular disease) (HCC) Malaise and fatigue Expected: 12/16/2022, Expires: 02/15/2023 [facility] Work Phone: Comment on above: Expected: 12/16/2022 , Expires: 02/15/2023 Start: 12-16-2022 End: 02-15-2023 Thyrotropin [Units/volume] in Serum or Plasma TSH BLD Lab Routine Malignant neoplasm of upper lobe of left lung (HCC) Centrilobular emphysema (HCC) Abnormal LFTs Cancer related pain PVD (peripheral vascular disease) (HCC) Malaise and fatigue Expected: 12/16/2022, Expires: 02/15/2023 [facility] Work Phone: Comment on above: Expected: 12/16/2022 , Expires: 02/15/2023 Start: 12-11-2022 Adult depression screening assessment DEPRESSION SCREENING [facility] Start: 12-11-2022 BP CONTROLLED (<130/80) BP CONTROLLE D (<130/80) [facility] Start: 12-09-2022 End: 02-08-2023 CBC W Auto Differential panel - Blood CBC + DIFF Lab Routine Malignant neoplasm of upper lobe of left lung (HCC) Centrilobular emphysema (HCC) Abnormal LFTs Cancer related pain PVD (peripheral vascular disease) (HCC) Expected: 12/09/2022, Expires: 02/08/2023 [facility] Work Phone: Comment on above: Expected: 12/09/2022 , Expires: 02/08/2023 Start: 12-09-2022 End: 02-08-2023 Comprehensive metabolic 2000 panel - Serum or Plasma COMP METABOLIC PANEL Lab Routine Malignant neoplasm of upper lobe of left lung (HCC) Centrilobular emphysema (HCC) Abnormal LFTs Cancer related pain PVD (peripheral vascular disease) (HCC) Expected: 12/09/2022, Expires: 02/08/2023 [facility] Work Phone: Comment on above: Expected: 12/09/2022 , Expires: 02/08/2023 Start: 12-03-2022 BP CONTROLLED (<130/80) BP CONTROLLE D (<130/80) [facility] Start: 11-30-2022 BP CONTROLLED (<130/80) BP CONTROLLE D (<130/80) [facility] Start: 11-26-2022 BP CONTROLLED (<130/80) BP CONTROLLE D (<130/80) [facility] Start: 11-25-2022 End: 01-25-2023 CBC W Auto Differential panel - Blood CBC + DIFF Lab Routine 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) Abnormal LFTs Expected: 11/25/2022, Expires: 01/25/2023 [facility] Work Phone: Comment on above: Expected: 11/25/2022 , Expires: 01/25/2023 Start: 11-25-2022 End: 01-25-2023 Comprehensive metabolic 2000 panel - Serum or Plasma COMP METABOLIC PANEL Lab Routine 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) Abnormal LFTs Expected: 11/25/2022, Expires: 01/25/2023 [facility] Work Phone: Comment on above: Expected: 11/25/2022 , Expires: 01/25/2023 Start: 11-25-2022 End: 01-25-2023 Thyrotropin [Units/volume] in Serum or Plasma TSH BLD Lab Routine 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) Abnormal LFTs Malaise and fatigue Expected: 11/25/2022, Expires: 01/25/2023 [facility] Work Phone: Comment on above: Expected: 11/25/2022 , Expires: 01/25/2023 Start: 11-18-2022 End: 01-18-2023 CBC W Auto Differential panel - Blood CBC + DIFF Lab Routine 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) Expected: 11/18/2022, Expires: 01/18/2023 [facility] Work Phone: Comment on above: Expected: 11/18/2022 , Expires: 01/18/2023 Start: 11-18-2022 End: 01-18-2023 Comprehensive metabolic 2000 panel - Serum or Plasma COMP METABOLIC PANEL Lab Routine 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) Expected: 11/18/2022, Expires: 01/18/2023 [facility] Work Phone: Comment on above: Expected: 11/18/2022 , Expires: 01/18/2023 Start: 11-18-2022 End: 01-18-2023 Lactate dehydrogenase [Enzymatic activity/volume] in Serum or Plasma LD LACTATE DEHYDRO Lab Routine 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) Expected: 11/18/2022, Expires: 01/18/2023 [facility] Work Phone: Comment on above: Expected: 11/18/2022 , Expires: 01/18/2023 Start: 11-12-2022 BP CONTROLLED (<130/80) BP CONTROLLE D (<130/80) [facility] Start: 11-05-2022 BP CONTROLLED (<130/80) BP CONTROLLE D (<130/80) [facility] Start: 10-24-2022 BP CONTROLLED (<130/80) BP CONTROLLE D (<130/80) [facility] Start: 10-19-2022 BP CONTROLLED (<130/80) BP CONTROLLE D (<130/80) [facility] Start: 10-15-2022 End: 12-15-2022 MISC SEND OUT TST 1 MISC SEND OUT TST 1 Lab Routine Malignant neoplasm of upper lobe of left lung (HCC) Expected: 10/15/2022, Expires: 12/15/2022 [facility] Work Phone: Comment on above: Expected: 10/15/2022 , Expires: 12/15/2022 Start: 10-11-2022 BP CONTROLLED (<130/80) BP CONTROLLE D (<130/80) [facility] Start: 09-17-2022 End: 11-17-2022 CBC W Auto Differential panel - Blood CBC + DIFF Lab Routine Malignant neoplasm of upper lobe of left lung (HCC) Malaise and fatigue Expected: 09/17/2022 (Approximate), Expires: 11/17/2022 [facility] Work Phone: Comment on above: Expected: 09/17/2022 (Approximate), Expires: 11/17/2022 Start: 09-17-2022 End: 11-17-2022 Comprehensive metabolic 2000 panel - Serum or Plasma COMP METABOLIC PANEL Lab Routine Malignant neoplasm of upper lobe of left lung (HCC) Malaise and fatigue Expected: 09/17/2022 (Approximate), Expires: 11/17/2022 [facility] Work Phone: Comment on above: Expected: 09/17/2022 (Approximate), Expires: 11/17/2022 Start: 09-17-2022 End: 11-17-2022 Lactate dehydrogenase [Enzymatic activity/volume] in Serum or Plasma LD LACTATE DEHYDRO Lab Routine Malignant neoplasm of upper lobe of left lung (HCC) Malaise and fatigue Expected: 09/17/2022 (Approximate), Expires: 11/17/2022 [facility] Work Phone: Comment on above: Expected: 09/17/2022 (Approximate), Expires: 11/17/2022 Start: 09-17-2022 End: 11-17-2022 Thyrotropin [Units/volume] in Serum or Plasma TSH BLD Lab Routine Malignant neoplasm of upper lobe of left lung (HCC) Malaise and fatigue Expected: 09/17/2022 (Approximate), Expires: 11/17/2022 [facility] Work Phone: Comment on above: Expected: 09/17/2022 (Approximate), Expires: 11/17/2022 Start: 08-20-2022 End: 10-20-2022 CBC W Auto Differential panel - Blood CBC + DIFF Lab Routine Malignant neoplasm of upper lobe of left lung (HCC) Anemia due to antineoplastic chemotherapy Expected: 08/20/2022, Expires: 10/20/2022 [facility] Work Phone: Comment on above: Expected: 08/20/2022 , Expires: 10/20/2022 Start: 08-20-2022 End: 10-20-2022 Comprehensive metabolic 2000 panel - Serum or Plasma COMP METABOLIC PANEL Lab Routine Malignant neoplasm of upper lobe of left lung (HCC) Anemia due to antineoplastic chemotherapy Expected: 08/20/2022, Expires: 10/20/2022 [facility] Work Phone: Comment on above: Expected: 08/20/2022 , Expires: 10/20/2022 Start: 07-21-2022 ADVANCE DIRECTIVE DISCUSSION ADVANCE DIRECTIVE DISCUSSION [facility] Start: 07-21-2022 DEPRESSION ASSESSMENT DEPRESSION ASS ESSMENT [facility] Start: 06-25-2022 End: 08-25-2022 THYROGLOBULIN BY MASS SPECTROMETRY THYROGLOBULIN BY MASS SPECTROMETRY Lab Routine Thyroid cancer (HCC) Expected: 06/25/2022, Expires: 08/25/2022 [facility] Work Phone: Comment on above: Expected: 06/25/2022 , Expires: 08/25/2022 Start: 04-18-2022 End: 06-18-2022 CBC W Auto Differential panel - Blood CBC + DIFF Lab Routine Malignant neoplasm of upper lobe of left lung (HCC) Expected: 04/18/2022, Expires: 06/18/2022 [facility] Work Phone: Comment on above: Expected: 04/18/2022 , Expires: 06/18/2022 Start: 04-18-2022 End: 06-18-2022 Comprehensive metabolic 2000 panel - Serum or Plasma COMP METABOLIC PANEL Lab Routine Malignant neoplasm of upper lobe of left lung (HCC) Expected: 04/18/2022, Expires: 06/18/2022 [facility] Work Phone: Comment on above: Expected: 04/18/2022 , Expires: 06/18/2022 Start: 03-21-2022 Influenza vaccination [facility] Start: 02-22-2022 End: 04-24-2022 CBC W Auto Differential panel - Blood [facility] Work Phone: Comment on above: Expected: 02/22/2022 , Expires: 04/24/2022 Start: 02-22-2022 End: 04-24-2022 Comprehensive metabolic 2000 panel - Serum or Plasma [facility] Work Phone: Comment on above: Expected: 02/22/2022 , Expires: 04/24/2022 Start: 02-15-2022 End: 04-17-2022 CBC W Auto Differential panel - Blood CBC + DIFF Lab Routine Malignant neoplasm of upper lobe of left lung (HCC) Expected: 02/15/2022, Expires: 04/17/2022 [facility] Work Phone: Comment on above: Expected: 02/15/2022 , Expires: 04/17/2022 Start: 2022 ADVANCE DIRECTIVE DISCUSSION ADVANCE DIRECTIVE DISCUSSION [facility] Start: 02-07-2022 End: 04-09-2022 Iron and Iron binding capacity panel - Serum or Plasma [facility] Work Phone: Comment on above: Expected: 02/07/2022 , Expires: 04/09/2022 Start: 02-05-2022 End: 04-07-2022 CBC W Auto Differential panel - Blood CBC + DIFF Lab Routine Malignant neoplasm of upper lobe of left lung (HCC) Expected: 02/05/2022, Expires: 04/07/2022 [facility] Work Phone: Comment on above: Expected: 02/05/2022 , Expires: 04/07/2022 Start: 02-05-2022 End: 04-07-2022 Comprehensive metabolic 2000 panel - Serum or Plasma COMP METABOLIC PANEL Lab Routine Malignant neoplasm of upper lobe of left lung (HCC) Expected: 02/05/2022, Expires: 04/07/2022 [facility] Work Phone: Comment on above: Expected: 02/05/2022 , Expires: 04/07/2022 Start: 02-05-2022 End: 04-07-2022 Magnesium [Mass/volume] in Serum or Plasma MAGNESIUM BLD Lab Routine Malignant neoplasm of upper lobe of left lung (HCC) Expected: 02/05/2022, Expires: 04/07/2022 [facility] Work Phone: Comment on above: Expected: 02/05/2022 , Expires: 04/07/2022 Start: 01-22-2022 End: 03-24-2022 CBC W Auto Differential panel - Blood CBC + DIFF Lab Routine Malignant neoplasm of upper lobe of left lung (HCC) Expected: 01/22/2022, Expires: 03/24/2022 [facility] Work Phone: Comment on above: Expected: 01/22/2022 , Expires: 03/24/2022 Start: 01-22-2022 End: 03-24-2022 Comprehensive metabolic 2000 panel - Serum or Plasma COMP METABOLIC PANEL Lab Routine Malignant neoplasm of upper lobe of left lung (HCC) Expected: 01/22/2022, Expires: 03/24/2022 [facility] Work Phone: Comment on above: Expected: 01/22/2022 , Expires: 03/24/2022 Start: 01-10-2022 End: 03-12-2022 CBC W Auto Differential panel - Blood CBC + DIFF Lab Routine Malignant neoplasm of upper lobe of left lung (HCC) Expected: 01/10/2022, Expires: 03/12/2022 [facility] Work Phone: Comment on above: Expected: 01/10/2022 , Expires: 03/12/2022 Start: 01-10-2022 End: 03-12-2022 Comprehensive metabolic 2000 panel - Serum or Plasma COMP METABOLIC PANEL Lab Routine Malignant neoplasm of upper lobe of left lung (HCC) Expected: 01/10/2022, Expires: 03/12/2022 [facility] Work Phone: Comment on above: Expected: 01/10/2022 , Expires: 03/12/2022 Start: 01-10-2022 End: 03-12-2022 Magnesium [Mass/volume] in Serum or Plasma MAGNESIUM BLD Lab Routine Malignant neoplasm of upper lobe of left lung (HCC) Expected: 01/10/2022, Expires: 03/12/2022 [facility] Work Phone: Comment on above: Expected: 01/10/2022 , Expires: 03/12/2022 Start: 01-03-2022 End: 03-05-2022 CBC W Auto Differential panel - Blood CBC + DIFF Lab Routine Malignant neoplasm of upper lobe of left lung (HCC) Expected: 01/03/2022, Expires: 03/05/2022 [facility] Work Phone: Comment on above: Expected: 01/03/2022 , Expires: 03/05/2022 Start: 01-03-2022 End: 03-05-2022 Comprehensive metabolic 2000 panel - Serum or Plasma COMP METABOLIC PANEL Lab Routine Malignant neoplasm of upper lobe of left lung (HCC) Expected: 01/03/2022, Expires: 03/05/2022 [facility] Work Phone: Comment on above: Expected: 01/03/2022 , Expires: 03/05/2022 Start: 01-03-2022 End: 03-05-2022 Magnesium [Mass/volume] in Serum or Plasma MAGNESIUM BLD Lab Routine Malignant neoplasm of upper lobe of left lung (HCC) Expected: 01/03/2022, Expires: 03/05/2022 [facility] Work Phone: Comment on above: Expected: 01/03/2022 , Expires: 03/05/2022 Start: 12-10-2021 End: 02-09-2022 CBC W Auto Differential panel - Blood CBC + DIFF Lab Routine Malignant neoplasm of upper lobe of left lung (HCC) Acute kidney injury (HCC) Expected: 12/10/2021 (Approximate), Expires: 02/09/2022 [facility] Work Phone: Comment on above: Expected: 12/10/2021 (Approximate), Expires: 02/09/2022 Start: 12-10-2021 End: 02-09-2022 Comprehensive metabolic 2000 panel - Serum or Plasma COMP METABOLIC PANEL Lab Routine Malignant neoplasm of upper lobe of left lung (HCC) Acute kidney injury (HCC) Expected: 12/10/2021 (Approximate), Expires: 02/09/2022 [facility] Work Phone: Comment on above: Expected: 12/10/2021 (Approximate), Expires: 02/09/2022 Start: 12-03-2021 End: 02-02-2022 CBC W Auto Differential panel - Blood CBC + DIFF Lab Routine Malignant neoplasm of upper lobe of left lung (HCC) Expected: 12/03/2021, Expires: 02/02/2022 [facility] Work Phone: Comment on above: Expected: 12/03/2021 , Expires: 02/02/2022 Start: 12-03-2021 End: 02-02-2022 Comprehensive metabolic 2000 panel - Serum or Plasma COMP METABOLIC PANEL Lab Routine Malignant neoplasm of upper lobe of left lung (HCC) Expected: 12/03/2021, Expires: 02/02/2022 [facility] Work Phone: Comment on above: Expected: 12/03/2021 , Expires: 02/02/2022 Start: 11-30-2021 End: 01-30-2022 CBC W Auto Differential panel - Blood CBC + DIFF Lab Routine Malignant neoplasm of upper lobe of left lung (HCC) Acute kidney injury (HCC) Expected: 11/30/2021, Expires: 01/30/2022 [facility] Work Phone: Comment on above: Expected: 11/30/2021 , Expires: 01/30/2022 Start: 11-30-2021 End: 01-30-2022 Comprehensive metabolic 2000 panel - Serum or Plasma COMP METABOLIC PANEL Lab Routine Malignant neoplasm of upper lobe of left lung (HCC) Acute kidney injury (HCC) Expected: 11/30/2021, Expires: 01/30/2022 [facility] Work Phone: Comment on above: Expected: 11/30/2021 , Expires: 01/30/2022 Start: 11-19-2021 End: 01-19-2022 Basic metabolic 2000 panel - Serum or Plasma [facility] Work Phone: Comment on above: Expected: 11/19/2021 , Expires: 01/19/2022 Start: 11-14-2021 End: 01-14-2022 Basic metabolic 2000 panel - Serum or Plasma BASIC METABOLIC PNL Lab Routine Malignant neoplasm of upper lobe of left lung (HCC) Expected: 11/14/2021, Expires: 01/14/2022 [facility] Work Phone: Comment on above: Expected: 11/14/2021 , Expires: 01/14/2022 Start: 11-12-2021 End: 01-12-2022 CBC W Auto Differential panel - Blood CBC + DIFF Lab Routine Malignant neoplasm of upper lobe of left lung (HCC) Expected: 11/12/2021, Expires: 01/12/2022 [facility] Work Phone: Comment on above: Expected: 11/12/2021 , Expires: 01/12/2022 Start: 11-12-2021 End: 01-12-2022 Comprehensive metabolic 2000 panel - Serum or Plasma COMP METABOLIC PANEL Lab Routine Malignant neoplasm of upper lobe of left lung (HCC) Expected: 11/12/2021, Expires: 01/12/2022 [facility] Work Phone: Comment on above: Expected: 11/12/2021 , Expires: 01/12/2022 Start: 10-26-2021 End: 11-18-2022 Mri brain brain stem w/o w/contrast material MRI BRAIN WO/W IVCON Radiology Routine Malignant neoplasm of upper lobe of left lung (HCC) Expected: 10/26/2021, Expires: 11/18/2022 [facility] Work Phone: Comment on above: Expected: 10/26/2021 , Expires: 11/18/2022 Start: 09-11-2021 Covid-19 Vaccine (5 - Moderna series) Covid-19 Vaccine (5 - Moderna series) [facility] Start: 07-21-2021 DEPRESSION ASSESSMENT DEPRESSION ASS ESSMENT [facility] Start: 05-15-2021 COVID-19 VACCINE (3 - Booster for Moderna series) COVID-19 VACCINE (3 - Booster for Moderna series) [facility] Start: 03-21-2021 Influenza vaccination INFLUENZA (#1) [facility] Start: 02-07-2021 COVID-19 VACCINE (3 - Moderna series) COVID-19 VACCINE (3 - Moderna series) [facility] Start: 01-10-2021 COVID-19 VACCINE (3 - Moderna risk 4-dose series) COVID-19 VACCINE (3 - Moderna risk 4-dose series) [facility] Start: 01-10-2021 COVID-19 VACCINE (3 - Moderna risk series) COVID-19 VACCINE (3 - Moderna risk series) [facility] Start: 2017 RSV Vaccine (1 - 1-d ose 60+ series) RSV Vaccine (1 - 1-dose 60+ series) [facility] Start: 02-14-2012 PROSTATE CANCER SCREENING DISCUSSION PROSTATE CANCER SCREENING DISCUSSION [facility] Start: 02-14-2012 Prostate specific antigen measurement Prostate Cancer Screening Discussion [facility] Start: 2007 SHINGRIX VACCINE (1 of 2) SHINGRIX VACCINE (1 of 2) [facility] Start: 2002 COLOGUARD (FIT-DNA) COLOGUARD (FIT-D NA) [facility] Start: 2002 Colonoscopy COLONOSCOPY [facility] Start: 2002 COLORECTAL CANCER SCREENING COLORECTAL CANCER SCREENING [facility] Start: [address] COLONOGRAPHY [facility] Start: 2002 FECAL OCCULT BLOOD FECAL OCCULT BLOO D [facility] Start: 2002 Screening for malign ant neoplasm of colon [facility] Start: 2002 [facility] Start: 02-14-1992 Lipid 1996 panel - Serum or Plasma Lipid Screening [facility] Start: 02-14-1992 Lipid panel Lipid Screening [facility] Start: 02-14-1992 LIPID SCREEN LIPID SCREEN [facility] Start: 1987 Zoledronic acid therapy ALPHA- 1 ANTITRYPSIN DEFICIENCY SCREENING [facility] Start: 02-14-1976 SHINGRIX VACCINE (1 of 2) SHINGRIX VACCINE (1 of 2) [facility] Start: 1975 ANNUAL PCP TEAM LEATHER ETCHER ALYSSA DISEASE VISIT ANNUAL PCP TEAM CHRONIC DISEASE VISIT [facility] Start: 1975 Anxiety Screening Anxiety Screening [facility] Start: 1975 BP CONTROLLED (<130/80) BP CONTROLLE D (<130/80) [facility] Start: 1975 Depression Screening Depression Scre ening [facility] Start: 1975 Hepatitis B surface antibody level LDL CHOLESTEROL [facility] Start: 1975 HEPATITIS C SCREENING HEPATITIS C [facility] Start: 1975 Hepatitis C screening Hepatitis C [facility] Start: 1975 HIV SCREENING HIV SCREENING [facility] Start: 1969 Adult depression screening assessment DEPRESSION SCREENING [facility] Start: 1963 PNEUMOCOCCAL (1 - PCV) PNEUMOCOCCAL (1 - PCV) [facility] Start: 1963 Pneumococcal Vaccine : 65+ (1 - PCV) Pneumococcal Vaccine: 65+ (1 - PCV) [facility] Start: 1963 Pneumococcal Vaccine : 65+ (1 of 2 - PCV) Pneumococcal Vaccine: 65+ (1 of 2 - PCV) [facility] Start: 1963 PNEUMOCOCCAL: 65+ (1 - PCV) PNEUMOCOCCAL: 65+ (1 - PCV) [facility] Start: 1957 ABDOMINAL AORTIC ANEURYSM SCREENING ABDOMINAL AORTIC ANEURYSM SCREENING [facility] Start: 1957 Abdominal aortic aneurysm screening Abdominal Aortic Aneurysm Screening [facility] Anion gap measurement [facility] aPTT in Platelet poo r plasma by Coagulation assay [facility] Basophils [#/volume] in Blood by Automated count [facility] Basophils/100 leukocytes in Blood by Automated count [facility] Biopsy soft tissue neck/thorax BIOPSY SOFT TISSUE NECK/CHEST Procedures Routine Malignant neoplasm of upper lobe of left lung (HCC) Ordered: 10/15/2022 [facility] Work Phone: Comment on above: Ordered: 10/15/2022 End: 05-08-2023 Bone &/joint imaging whole body NM BONE WHOLE BODY Radiology Routine Malignant neoplasm of unspecified part of unspecified bronchus or lung (HCC) 1 Occurrences starting 04/08/2022 until 05/08/2023 [facility] Work Phone: Comment on above: 1 Occurrences starti ng 04/08/2022 until 05/08/2023 End: 09-19-2023 Ct abdomen & pelvis w/contrast material CT ABD/PEL W IVCON Radiology Routine Malignant neoplasm of upper lobe of left lung (HCC) 1 Occurrences starting 08/20/2022 until 09/19/2023 [facility] Work Phone: Comment on above: 1 Occurrences starti ng 08/20/2022 until 09/19/2023 End: 09-19-2023 CT CHEST W IVCON CT CHEST W IVCON Radiology Routine 1 Occurrences starting 08/20/2022 until 09/19/2023 [facility] Work Phone: Comment on above: 1 Occurrences starti ng 08/20/2022 until 09/19/2023 CT Guidance for radiation treatment of Unspecified body region CT SIM PLANNING RADIATION ONCOLOGY Radiology Routine Malignant neoplasm of upper lobe of left lung (HCC) Ordered: 12/02/2023 [facility] Work Phone: Comment on above: Ordered: 12/02/2023 CT SIM PLANNING RADIATION ONCOLOGY CT SIM PLANNING RADIATION ONCOLOGY Radiology Routine Malignant neoplasm of upper lobe of left lung (HCC) Ordered: 03/20/2022 [facility] Work Phone: Comment on above: Ordered: 03/20/2022 CT SIM PLANNING RADIATION ONCOLOGY CT SIM PLANNING RADIATION ONCOLOGY Radiology Routine Malignant neoplasm of unspecified part of unspecified bronchus or lung (HCC) Ordered: 10/21/2022 [facility] Work Phone: Comment on above: Ordered: 10/21/2022 CT SIM PLANNING RADIATION ONCOLOGY CT SIM PLANNING RADIATION ONCOLOGY Radiology Routine Oropharnyx cancer (HCC) Ordered: 06/11/2023 [facility] Work Phone: Comment on above: Ordered: 06/11/2023 Eosinophils/100 leukocytes in Blood by Automated count [facility] Erythrocyte distribution width [Ratio] by Automated count [facility] Erythrocytes [#/volu me] in Blood [facility] Hematocrit [Volume Fraction] of Blood [facility] Hemoglobin [Mass/volume] in Blood [facility] Hemoglobin.gastroint est inal.lower [Presence] in Stool by Immunoassay FECAL OCCULT BLOOD TEST Lab Routine Malignant neoplasm of upper lobe of left lung (HCC) Ordered: 02/07/2022 [facility] Work Phone: Comment on above: Ordered: 02/07/2022 Hepatic function 200 0 panel - Serum or Plasma HEPATIC FUNCTION PNL Lab STAT Malignant neoplasm of upper lobe of left lung (HCC) 11/11/2022 2:47 PM EDT [facility] Work Phone: INR in Platelet poor plasma by Coagulation assay [facility] Leukocytes [#/volume ] corrected for nucleated erythrocytes in Blood by Automated coun [facility] Leukocytes [#/volume ] in Blood [facility] End: 04-14-2025 LUNG DIFFUSION CAPACITY (DLCO) LUNG DIFFUSION CAPACITY (DLCO) PFT Routine Centrilobular emphysema (HCC) Dyspnea on exertion 1 Occurrences starting 03/15/2024 until 04/14/2025 [facility] Comment on above: 1 Occurrences starti ng 03/15/2024 until 04/14/2025 Lymphocytes [#/volum e] in Blood by Automated count [facility] Lymphocytes/100 leukocytes in Blood by Automated count [facility] MCH [Entitic mass] b y Automated count [facility] MCHC [Mass/volume] b y Automated count [facility] MCV [Entitic volume] by Automated count [facility] Monocytes [#/volume] in Blood by Automated count [facility] Monocytes/100 leukocytes in Blood by Automated count [facility] MRA Head vessels WO contrast [facility] Neutrophils [#/volum e] in Blood by Automated count [facility] Neutrophils/100 leukocytes in Blood by Automated count [facility] End: 10-23-2023 NM PET/CT SKULL-THIGH SUBSEQUENT NM PET/CT SKULL-THIGH SUBSEQUENT Radiology Routine Lung nodules 1 Occurrences starting 09/23/2022 until 10/23/2023 [facility] Work Phone: Comment on above: 1 Occurrences starti ng 09/23/2022 until 10/23/2023 End: 09-23-2024 NM PET/CT SKULL-THIGH SUBSEQUENT NM PET/CT SKULL-THIGH SUBSEQUENT Radiology Routine 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) 1 Occurrences starting 08/25/2023 until 09/23/2024 [facility] Work Phone: Comment on above: 1 Occurrences starti ng 08/25/2023 until 09/23/2024 Nucleated erythrocyt es [Presence] in Blood by Automated count [facility] Patient Education [facility] Work Phone: Patient referral [facility] Work Phone: End: 12-03-2024 PET+CT Guidance for localization of tumor of Skull base to mid-thigh-- W [id number] IV NM PET/CT SKULL-THIGH SUBSEQUENT Radiology Routine 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) 1 Occurrences starting 11/04/2023 until 12/03/2024 [facility] Work Phone: Comment on above: 1 Occurrences starti ng 11/04/2023 until 12/03/2024 End: 03-04-2025 PET+CT Guidance for localization of tumor of Skull base to mid-thigh-- W [id number] IV NM PET/CT SKULL-THIGH SUBSEQUENT Radiology Routine 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 Swelling of arm Cancer associated pain 1 Occurrences starting 02/03/2024 until 03/04/2025 [facility] Comment on above: 1 Occurrences starti ng 02/03/2024 until 03/04/2025 Platelet mean volume [Entitic volume] in Blood by Automated count [facility] Platelets [#/volume] in Blood [facility] Prothrombin time (PT) [facility] End: 11-10-2022 Radiologic exam chest 2 views XR CHEST 2V FRONTAL/LAT Radiology Routine Malignant neoplasm of upper lobe of left lung (HCC) 1 Occurrences starting 10/11/2021 until 11/10/2022 [facility] Work Phone: Comment on above: 1 Occurrences starti ng 10/11/2021 until 11/10/2022 SPIROMETRY WITH DILA TOR IF OBSTRUCTED SPIROMETRY WITH DILATOR IF OBSTRUCTED PFT Routine Chronic obstructive pulmonary disease, unspecified COPD type (HCC) Lung nodule 01/29/2022 7:47 AM EDT [facility] Work Phone: End: 04-14-2025 SPIROMETRY WITH DILATOR IF OBSTRUCTED SPIROMETRY WITH DILATOR IF OBSTRUCTED PFT Routine Centrilobular emphysema (HCC) Dyspnea on exertion 1 Occurrences starting 03/15/2024 until 04/14/2025 [facility] Work Phone: Comment on above: 1 Occurrences starti ng 03/15/2024 until 04/14/2025 End: 03-04-2025 US Upper extremity vein - left US DVT UPPER LEFT Radiology STAT 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) Swelling of arm 1 Occurrences starting 02/03/2024 until 03/04/2025 [facility] Comment on above: 1 Occurrences starti ng 02/03/2024 until 03/04/2025 [facility] Immunizations Immunization Date Immunization Notes Care Provider [facility] 12-13-2020 COVID-19 vaccine, fu ll dose (MODERNA) Aracelis Carrillo APRN.ELDERLY CAREGIVER Work Phone: [facility] 11-15-2020 COVID-19 vaccine, fu ll dose (MODERNA) Aracelis Carrillo APRN.ELDERLY CAREGIVER Work Phone: [facility] 10-13-2020 diphtheria, tetanus toxoids and pertussis vaccine Aracelis Carrillo APRN.ELDERLY CAREGIVER Work Phone: [facility] Payers Date Payer Category Payer Self-pay [id number] 2023 Private Health Insurance [facility] [id number] 2022 Medicare MEDICARE MEDICAR E A AND B [id number] 2022-[facility] [phone] [address] [address] [place] [address] Medicare [id number] 2022 Medicare [id number] 2019 Medicaid [id number] 2000 Medicaid [id number] 1959 Medicare [id number] 1959 Unknown [id number] 1957 Unknown [id number] 2.16.840.1.615110.3.579.2.6 47 1957 Unknown [id number] 2.16.840.1.888867.3.579.2.5 93 1957 Unknown [id number] 2.16.840.1.030607.3.579.2.5 93 1957 Unknown [id number] 2.16.840.1.300764.3.579.2.5 93 1957 Unknown [id number] 2.16.840.1.237782.3.579.2.5 93 1957 Unknown [id number] 2.16.840.1.323581.3.579.2.5 93 1957 Unknown [id number] 2.16.840.1.039055.3.579.2.5 93 1957 Unknown [id number] 2.16.840.1.662277.3.579.2.5 1957 Unknown [id number] 2.16.840.1.456356.3.579.2.5 93 1957 Unknown [id number] 2.16.840.1.576863.3.579.2.5 93 1957 Unknown [id number] 2.16.840.1.818715.3.579.2.5 93 1957 Unknown [id number] 2.16.840.1.141864.3.579.2.3 56 1957 Unknown [id number] 2.16.840.1.395413.3.579.2.7 1957 Unknown [id number] 2.16.840.1.673663.3.579.2.7 27 7 Unknown [id number] 2.16.840.1.798743.3.579.2.7 1957 Unknown [id number] 2.16.840.1.509106.3.579.2.7 1957 Unknown [id number] 2.16.840.1.778442.3.579.2.7 1957 Unknown [id number] 2.16.840.1.680775.3.579.2.7 1957 Unknown [id number] 2.16.840.1.484889.3.579.2.7 1957 Unknown [id number] 2.16.840.1.325186.3.579.2.7 1957 Unknown [id number] 2.16.840.1.041692.3.579.2.7 1957 Unknown [id number] 2.16.840.1.747560.3.579.2.7 1957 Unknown [id number] 2.16.840.1.080011.3.579.2.7 1957 Unknown [id number] 2.16.840.1.032545.3.579.2.7 1957 Unknown [id number] 2.16.840.1.576849.3.579.2.7 1957 Unknown [id number] 2.16.840.1.836094.3.579.2.7 1957 Unknown [id number] 2.16.840.1.397015.3.579.2.7 1957 Unknown [id number] 2.16.840.1.720047.3.579.2.7 Unknown [id number] 2.16.840.1.195546.3.579.2.5 31 Unknown [id number] 2.16.840.1.264025.3.579.2.5 31 Unknown [id number] 2.16.840.1.780513.3.579.2.5 31 Unknown [id number] 2.16.840.1.253673.3.579.2.5 31 Social History Date Type Detail Facility Start: 07-03-2021 End: 04-30-2022 Tobacco smoking status NHIS Ex-smoker [facility] Start: 07-21-1970 End: 07-13-2020 History of tobacco use Current smoker [facility] Start: 07-21-1970 End: 07-21-2020 History of tobacco use Cigarette Smoker [facility] Start: 07-03-2021 End: 04-30-2022 Tobacco use and exposure Smokeless tobacco non-user [facility] Start: 10-11-2021 End: 12-02-2023 Alcohol intake Current drinker of alcohol (finding) [facility] Start: 10-11-2021 End: 11-20-2022 Alcohol intake [facility] Start: 09-25-2021 End: 03-26-2022 Tobacco Comment was smoking on and off fully quit 09/14/21 [facility] Start: 1955 Sex Assigned At Not on file [facility] Start: 04-27-2021 End: 06-11-2022 Exposure to SARS-CoV-2 (event) Not sure [facility] Start: 10-19-2021 History SDOH Alcohol Comment 4-9 beers per day [facility] Start: 04-16-2021 Tobacco smoking stat us UTIS Current some day smoker [facility] Start: 1955 Sex Assigned At Male F [facility] History of tobacco use Passive smoker [facility] Start: 11-20-2022 End: 01-28-2023 Tobacco use panel [facility] Adult Depression Screening Assessment 0 [facility] Start: 07-21-1970 Tobacco smoking stat us NHIS Light tobacco smoker [facility] Goals Date Patient Goal Desired Activity /State Functional Status Date Assessment Result Facility 03-19-2024 Functional status Patient at Baseline [facility] Work Phone: Mental Status Date Assessment Result Facility 03-19-2024 Cognitive function Cognitive Sta tus Patient at Baseline [facility] Work Phone: Clinical Notes 05-28-2021 to 03-29-2024 Telephone Encounter - Marichuy Coronel RN - 03/29/2024 12:46 PM EDTTelephone Encounter - Marichuy Coronel RN - 03/29/2024 12:46 PM EDTTelephone Encounter - Marichuy Coronel RN - 03/29/2024 8:59 AM EDT Note Date & Type Note Facility 03-29-2024 Telephone encount er Note The following approved medication requests have been transmitted electronically. Requested Prescriptions Signed Prescriptions Disp Refills dexAMETHasone (DECADRON) 4 mg tablet 30 tablet 1 Sig: take 1 tablet by mouth twice daily with meals Authorizing Provider: ESTELLA FISH RN [facility] 03-29-2024 Miscellaneous Notes Formattin g of this note is different from the original. The following approved medication requests have been transmitted electronically. Requested Prescriptions Signed Prescriptions Disp Refills dexAMETHasone (DECADRON) 4 mg tablet 30 tablet 1 Sig: take 1 tablet by mouth twice daily with meals Authorizing Provider: ESTELLA FISH RN pharmacy phones requesting refills as follows: Last ordered 03/09/24 Last pall med visit on 03/17/24 Future appt 04/14/24 Requested Prescriptions Pending Prescriptions Disp Refills dexAMETHasone (DECADRON) 4 mg tablet [Pharmacy Med Name: dexamethasone 4 mg tablet] 30 tablet 1 Sig: take 1 tablet by mouth twice daily with meals Please review and advise. Marichuy Coronel RN documented in this encounter [facility] 03-29-2024 Telephone encount er Note pharmacy phones requesting refills as follows: Last ordered 03/09/24 Last pall med visit on 03/17/24 Future appt 04/14/24 Requested Prescriptions Pending Prescriptions Disp Refills dexAMETHasone (DECADRON) 4 mg tablet [Pharmacy Med Name: dexamethasone 4 mg tablet] 30 tablet 1 Sig: take 1 tablet by mouth twice daily with meals Please review and advise. Marichuy Coronel RN [facility] [facility] 03-20-2024 Consult note Note Date/Time March 20, 2024 11:06am [facility] [address] [place] [address] Neurology Consult Note Signed Patient: Cristal Gu MR#: [id number] : 1955 Acct:[id number] Age/Sex: 69 / M Adm Date: 4 Loc: Room: [address] [place] [address] Type: ADM INOo Attending Dr: Jair Nichols MD Copies to: NON STAFF MD Denisse Olivia DO~ HPI Consult Date: 03/20/24 Endoscopy Registered Nurse: Denisse Dial DO Reason for consult: AMS [...] exericsing lately. He previously went to the [facility] center and walked 2 miles. He quite [...] later on as he changed his mind. [facility] Medical History Diverticulosis History of rib fracture [...] of dysmetria with good rapid alternating movements zwenwa-ks-sftn Tone is physiologic Sensation is intact to [...] <Electronically signed by DO Denisse Dial> 03/20/24 1221 [facility] Work Phone: 1(591) 637-498808-31-2024 History and physical note Author Jair Nichols [facility] March 19, 2024 10:21pm Note Date/Time March 19, 2024 10 :21pm [facility] [address] [place] [address] Hospitalist H&P Signed Patient: Cristal Gu MR#: [id number] : 1955 Acct:[id number] Age/Sex: 69 / M Adm Date: 4 Loc: 3T Room: [address] [place] [address] Type: ADM INOo Attending Dr: Jair Nichols [...] heat intolerance Hematologic/Lymphatic Hematologic/Lymphatic: Denies easy bruising [facility] Medical History Diverticulosis History of rib fracture [...] inpatient consult. He sees Dr. Grigsby from [facility]. Patient may follow-up with him as [...] days): 2 Documented By: Jair Nichols MD 03/19/242215 Signed By: <Electronically signed by Jair Nichols MD> 03/19/242220 [facility] Work Phone: 1(703) 100-783308-29-2024 Nurse Note* Pavithra Jacinto MA - 03/18/2024 1:25 PM EDT Patient son states that this morning he was acting strange, says that he put teeth in microwave, other son said he was eating dog food-Okie states he was picking it up because it was on the floor. They are not sure if it is his medications or not. Pavithra Jacinto MA [facility]08-29-2024 Nurse Note* Pavithra Jacinto MA - 03/18/2024 [...] not. Pavithra Jacinto MA documented in this encounterCleveland Clinic [facility]08-28-2024 NoteUniversity Hospitals Cleveland Medical Center08-28-2024 History of Present illness Narrative* Nina Grigsby MD - 03/17/2024 1:56 PM EDT PATIENT NAME: Cristal Gu DATE: 03/18/2024 PRIMARY CARE PHYSICIAN: Dr. Christina Azul OTHER PHYSICIANS: Dr. Verito Whelan, Dr. Marianne Fields, Dr. Damon Tse ([facility]) Dr. 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 PATHOLOGY: 10/21/2022 [id number] NGS analysis KRAS G12C mutation present, 5.2% [...] No hypermetabolic osseous lesions 01/03/2023 Chest CTA ([facility]) Bilateral hilar soft tissue nodules concerning for [...] prior study, as above. 04/12/2022 Bone scan ([facility]) Degenerative findings. No evidence of metastatic [...] tonsil. The patient was initially seen by [facility] on 07/26/2021, and clinical evaluation was most consistent with inflammatory/post-infectious findings. The patient was advised to stop chewing tobacco and continue close observation. Follow-up PET 05/12/2023 revealed significant increased size and metabolism of the right tonsillar mass. The patient was reevaluated by [facility] May 2023 and it [...] uses Percocet as needed. Continue management per [facility] palliative medicine. 7. Abnormal LFTs [...] it was recommended he proceed to the [facility] emergency room today for urgent evaluation to include brain scan. Based on scan results neurology consult should be considered. Nina Grigsby MD documented in this encounterCleveland Clinic [facility]08-28-2024 NoteUniversity Hospitals Cleveland Medical Center08-28-2024 History of Present illness Narrative* Estella Fish, OZZIE.ELDERLY CAREGIVER - 03/17/2024 12:38 PM EDT PALLIATIVE MEDICINE VIRTUAL PROGRESS NOTE SERVICE DATE: 03/17/2024 This visit was conducted as a virtual/telehealth visit, in lieu of a face to face encounter,patient's identity and physical location were verified at the time of this visit. Either the patient or their legal regional sales representative has been informed of the risks [...] increased anxiety with increasing pain. Modified ESAS (Manteno Symptom Assessment Scale) Information Provided By: Patient [...] was identified. 03/17/2024 by Estella Fish NP, BRASS CUTTER.ELDERLY CAREGIVER Urine Screen Lab Results Component Value Date UAMPH Negative 09/26/2021 UBARB2 Negative 09/26/2021 UBENZ Negative 09/26/2021 UCOC2 Negative 09/26/2021 UOPI Negative 09/26/2021 UOXYC Negative 09/26/2021 UPCP Negative 09/26/2021 UTHC Negative 09/26/2021 UETOH <11 09/26/2021 Assessment & Plan (Z51.5) Palliative care by specialist (primary encounter diagnosis) - Reviewed philosophy of palliative medicine - Discussed services offered by [facility] - Provided support -Discussed services offered by palliative medicine and how to contact us (C31.92) 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 at bedtime -Small frequent meals [...] lead to or permanent disability - Continue edomexzqxa73 mg p.o. at bedtime - Effexor 37.5 [...] 4 Weeks in person Estella Fish NP, BRASS CUTTER.ELDERLY CAREGIVER March 17, 2024 1:24 PM I spent a total of 35 minutes on the date of the service which included preparing to see the patient, nknl-cg-lrfu patient care, completing clinical documentation, obtaining and/or reviewing separately obtained history, performing a medically appropriate examination, counseling and educating the pat ient/family/caregiver, ordering medications, tests, or procedures, communicating with other HCPs (not separately reported), independently interpreting results (not separately reported), communicatingresults to the patient/family/caregiver, and care coordination (not separately reported). This note may have been partially generated using the Mogreet voice recognition system. While every effort was made to correct voice recognition errors, kindly be aware that some errors may occasionally occur.occur documented in this encounterCleveland Clinic [facility]08-28-2024 NoteUniversity Hospitals Cleveland Medical Center08-26-2024 NoteUniversity Hospitals Cleveland Medical Center08-26-2024 History of Present illness Narrative* Merary Lucas MD - 03/15/2024 12:59 PM EDT Pulmonary Office Visit Progress Note COMMUNICATION WILL BE SENT VIA SHARED MEDICAL RECORDS OR US MAIL. CC: COPD HPI: Cristal Gu is a 69 year old year old male who presents for follow-up of COPD, last seen inthe office 01/29/[address]helan. Patient is [...] of breath. Takes anxiety medication which helps. [facility] med appt tomorrow No recent pneumonia. He has been coughing up green things. He took an antibiotic, a pink pill, couple weeks ago. Maybe amoxicillin 02/04. Sounds like he was treated for bronchitis or exacerbation, unclear to me, at an outside facility. He has gone to ER for sob. Up until a couple of months ago he was walking [facility]. 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 Former smoker: quit about a year or [...] 2019: Peripheral arterial disease (HCC) Comment: R CINEMA OR THEATRE MANAGER stent PAST SURGICAL HISTORY 2019: BACK SURGERY HX 2016: CABG (4) VEIN GRAFTS & ARTERIAL GRAFT(S) 2019: LOWER EXTREMITY EMBEDDED SOFTWARE DESIGN ENGINEER W/WO STENT; Right Comment: right common femoral [...] tolerated - has pall med appt tomorrow; xanax has been helping from pcp per patient, [...] Lucas MD Pulmonary & Critical Care Medicine [facility] [place] March 15, 2024 1:01 PM I spent a total of 40 minutes on the date of the service which included preparing to see the patient, ussu-ou-ukai patient care, completing clinical documentation, obtaining and/or reviewing separately obtained history, performing a medically appropriate examination, counseling and educating the pat ient/family/caregiver, ordering medications, tests, or procedures, communicating with other HCPs (not separately reported), independently interpreting results (not separately reported), and communicating results to the patient/family/caregiver. documented in this encounterCleveland Clinic [facility]08-26-2024 Telephone encounter Note * Telephone Encounter - Denita Rai RN - 03/15/2024 9:49 AM EDT Pt calls requesting the address for today's appointment in [place]. Address provided to pt. Name of physician spelled out over the phone per pt request as well. Pt also asks for the date and time of hisPall Med appointment. Informed pt that he is currently scheduled to see Estella Fish this Friday, 03/17 @ 1030 in our [place] office. Appointment details written down per pt. Pt denies any other questions at this time. Denita Rai RN [facility] Work Phone: 1(443) 508-333308-26-2024 Miscellaneous Notes* Telephone Encounter - Denita Rai RN - 03/15/2024 9:49 AM EDT Pt calls requesting the address for today's appointment in [place]. Address provided to pt. Name of physician spelled out over the phone per pt request as well. [facility] Informed pt that he is currently scheduled to see Estella Fish this Friday, 03/17 @ 1030 in our [place] office. Appointment details written down per pt. Pt denies any other questions at this time. Denita Rai RN documented in this encounterCleveland [facility]08-20-2024 Telephone encounter Note * Telephone Encounter - Julieth Tapia RN - 03/09/2024 2:05 PM EDT Palliative Medicine Care Coordination Follow up Phone Call Patient returned our call. Patient identified by name and : Yes Spoke with Pérez. Let him know Christina VILLEDA would like to trial a steroid and she sent a prescription to his [facility] pharmacy. Instructed him to follow the directions [...] Tapia RN March 09, 2024 2:10 PM [facility]08-20-2024 Miscellaneous Notes* Telephone Encounter - Julieth Tapia RN - 03/09/2024 2:05 PM EDT Palliative Medicine Care Coordination Follow up Phone Call Patient returned our call. Patient identified by name and : Yes Spoke with Pérez. Let him know Crhistina VILLEDA would like to trial a steroid and she sent a prescription to his [facility] pharmacy. Instructed him to follow the directions [...] try a dex pain taper, sent to [facility] He can also place two transdermal Fentanyl [...] medication he could take. His pharmacy is [facility] in [place]. Please advise. Thanks! Deborah Warner RN documented in this encounterCleveland Clinic [facility]08-20-2024 Telephone encounter Note * Telephone Encounter - Denita Rai RN - 03/09/2024 1:52 PM EDT Pt calls w/ c/o increased pain. Informed pt that Pall Med attempted to contact him earlier today, but his voicemail was full. Phone number for Pall Med given to pt. Pt verbalizes understanding and will call them back. Denita Rai RN [facility] Work Phone: [phone] Telephone encounter Note* Telephone Encounter - Julieth Tapia RN - 03/09/2024 1:27 PM EDT Palliative Medicine Care Coordination Follow up Phone Call Telephone call to Cristal Gu and his brother Christina Gu with no answer, both VM's say VM box full and unable to leave a message. Julieth Tapia RN March 09, 2024 1:30 PM [facility]08-20-2024 Telephone encounter Note* Telephone Encounter - Estella Fish APRN.RONAL - 03/09/2024 1:17 PM EDT Lets try a dex pain taper, sent to [facility] He can also place two transdermal Fentanyl Patches on for a total of 100 mcg/hr [facility]08-20-2024 Telephone encounter Note* Telephone Encounter - Deborah Warner RN - 03/09/2024 12:04 PM EDT Patient was in for a scan today, 03/09/24, c/o 04/29 pain in right shoulder pt in tears. Stated is unable to do anything due to shoulder pain and is not sleeping. Pt stated is taking oxycodone and fentanyl as prescribed without relief. He has an appointment with you next Friday. He was asking if there could be any other pain medication he could take. His pharmacy is [facility] in [place]. Please advise. Thanks! Deborah Warner RN [facility]08-20-2024 Telephone encounter Note* Telephone Encounter - Yusef Pandya PA-C - 03/09/2024 11:30 AM EDT Orders in Yusef Pandya PA-C [facility] Work Phone: [phone]) [phone] Miscellaneous Notes* Telephone Encounter - Yusef Pandya [...] Dr. Grigsby on 03/18 documented in this encounterCleveland Clinic [facility]08-20-2024 Telephone encounter Note * Telephone Encounter - Hannah Oglesby RN - 03/09/2024 11:10 AM EDT Pt here for PET today-wt decreased to 48 kg, states he has no appetite, not eating or drinking much . If agreeable please place IV fluid order for today while here for PET. Pt states fluids may 'perk me up F/u with Dr. Grigsby on 03/18 [facility]08-20-2024 History of Present illness Narrative* Hannah Oglesby [...] 1023 PATIENT DISCHARGED TO: Ambulatory patient, left [place] department area. A Diagnostic radioactive procedure has taken place, with no further precautions necessary other than routine body substance precautions. More information regarding radiation safety can be found usingthis link: [email or web address] SIGNATURE: RT Charis(R) PATIENT NAME: Cristal Gu DATE: March 09, 2024 TIME: 10:38 AM PAGER/CONTACT #: documented in this encounterCleveland Clinic [facility]08-20-2024 NoteUniversity Hospitals Cleveland Medical Center08-20-2024 NoteUniversity Hospitals Cleveland Medical Center08-13-2024 Telephone encounter Note* Telephone Encounter - Flroida Kearney - 03/02/2024 10:53 AM EDT Patient is scheduled with Dr Guaman in the [place] office on 03/09/2024 at 10 am per Tomasa from care everywhere. Spoke to patient & he stated he wasn't at home & was going to call us later to give us the appointment date & time of the ENT appointment. So, patient aware of appointment. MONA Hand [facility]08-13-2024 Miscellaneous Notes* Telephone Encounter - Florida Kearney - 03/02/2024 10:53 AM EDT Patient is scheduled with Dr Guaman in the [place] office on 03/09/2024 at 10 am per [...] - 02/24/2024 1:46 PM EDT Spoke to machine tool technician instructor at Dr Hayward's office at [phone] at [facility]. She needed the referral in order to get patient scheduled. Faxed referral order over to their office at [phone]. I will call the office back to check on status of appointment tomorrow or next day. Florida Kearney PSS * Telephone Encounter - Denita Rai RN [...] out? Denita Rai RN documented in this encounterCleveland Clinic [facility]08-12-2024 Telephone encounter Note * Telephone Encounter - Estella Fish APRN.ELDERLY CAREGIVER - 03/01/2024 3:22 PM EDT It has been over 90 days since I saw Maren, he has missed appts. I cn give him 7 days worth of meds, but he needs to see me before I can prescribe more. [facility]08-12-2024 Miscellaneous Notes* Telephone Encounter - Estella Fish [...] Get Hernandes - 03/01/2024 12:03 PM EDT [facility] is calling today regarding Refill Request Patient has been identified by name and birthdate. Requesting delivery method: call/escript to: [facility] [place] [place] Additional Concern: N/A Requesting response back: N/A [phone] (home) Get [facility] March 01, 2024 documented in this encounterCleveland Clinic [facility]08-12-2024 Telephone encounter Note * Telephone Encounter - [...] Please review and advise. Arianna Saha RN [facility]08-12-2024 Telephone encounter Note* Telephone Encounter - Get Hernandes - 03/01/2024 12:03 PM EDT [facility] is calling today regarding Refill Request Patient has been identified by name and birthdate. Requesting delivery method: call/escript to: [facility] [place]/ [place] Additional Concern: N/A Requesting response back: N/A [phone] (home) [facility] March 01, 2024 [facility]08-08-2024 Telephone encounter Note* Telephone Encounter - Bernadine Davis - 02/26/2024 10:16 AM EDT Spoke with Dr Douglas office he will be looking over his stuff today and then they will call patient to schedule [facility]08-07-2024 Telephone encounter Note* Telephone Encounter - Vanessa Carl - 02/25/2024 10:44 AM EDT Records faxed to Dr. Hayward. [facility]08-06-2024 Telephone encounter Note* Telephone Encounter - Florida Kearney - 02/24/2024 1:46 PM EDT Spoke to machine tool technician instructor at Dr Hayward's office at [phone] at [facility]. She needed the referral in order to get patient scheduled. Faxed referral order over to their office at [phone]. I will call the office back to check on status of appointment tomorrow or next day. Florida Kearney PSS [facility]08-06-2024 Telephone encounter Note* Telephone Encounter - Denita Rai RN - 02/24/2024 12:19 PM EDT Clerical: Please refer pt to ENT. Abnormal CT neck. Recommending scope. Pt would like seen JATINDER. Local or [facility]. Whichever can see him 1st. Denita Rai RN [facility]08-06-2024 Telephone encounter Note* Telephone Encounter - Denita [...] since [facility] is out? Denita Rai RN [facility]08-02-2024 Telephone encounter Note* Telephone Encounter - Paty Chapman APRN.CNP - 02/20/2024 2:51 PM EDT [facility] website checked and validated. All prescriptions have been APPROPRIATELY filled. No suspiciousactivity was identified. 02/20/2024 by Paty Chapman APRN.CNP [place] [address]-02-2024 Miscellaneous Notes* Telephone Encounter - Paty Chapman APRN.CNP - 02/20/2024 2:51 PM EDT [facility] website checked and validated. All prescriptions have been APPROPRIATELY filled. No suspiciousactivity was identified. 02/20/2024 by Paty Chapman APRN.RONAL * Telephone Encounter - Arianna Saha RN - 02/20/2024 1:44 PM EDT Tc spoke to [facility], He feels his pain in his arm is worse. Not new pain. Pain where he had radiation worse as they day goes on. Medication review: Lyrica- 75mg TID- stopped taking- needs refill never called when ran out. Oxycodone 10-20mg q5rumol PRN- 3x per day 2 tabs at [...] Yolande Bishop - 02/20/2024 11:04 AM EDT Cristla Gu is calling today regarding Numbness and [...] birthdate. Requesting response back: call at home [phone] Yolande Bishop February 20, 2024 documented in this encounterCleveland Clinic [facility]08-02-2024 Telephone encounter Note * Telephone Encounter - Arianna Saha RN - 02/20/2024 1:44 PM EDT Tc spoke to Cristal Gu, He feels his pain in his arm is worse. Not new pain. Pain where he had radiation worse as they day goes on. Medication review: Lyrica- 75mg TID- stopped taking- needs refill never called when ran out. Oxycodone 10-20mg b5jabxb PRN- 3x per day 2 tabs at time. No pain when wakes up medication helps. Denies need for refills. Fentanyl- 50mcg, ran out of medication needs refills. Discussed resuming medications will help with pain. Has visit with Christina Carpenter next week. Suggest to restart meds and follow up at scheduled visit. Agrees with plan. Provided office numbers and educated toclilia when he needs refills. Patient phones requesting [...] Please review and advise. Arianna Saha RN [facility]08-02-2024 Telephone encounter Note* Telephone Encounter - Denita Rai RN - 02/20/2024 1:07 PM EDT Pt of Dr Seb's w/ NSCLC on [facility]. States he used [...] out of the office? Denita Rai RN [facility]08-02-2024 Miscellaneous Notes* Telephone Encounter - Denita Rai RN - 02/20/2024 1:07 PM EDT Pt of Dr Grigsby's w/ NSCLC on [facility]. States he used to have an inhaler [...] office? Denita Rai RN documented in this encounterCleveland Clinic [facility]08-02-2024 Telephone encounter Note * Telephone Encounter - Yolande Bishop - 02/20/2024 11:04 AM EDT [facility] is calling today regarding Numbness and Med [...] birthdate. Requesting response back: call at home [phone] Yolande Bishop February 20, 2024 [facility]08-01-2024 Telephone encounter Note* Telephone Encounter - Rolanda Arrington - 02/19/2024 1:55 PM EDT Called [facility] office. Patient is scheduled to see Dr Beyer on 03/02 @ 10:30. Rolanda Lawrence [facility]08-01-2024 Miscellaneous Notes* Telephone Encounter - Rolanda Arrington [...] 02/05/2024 1:10 PM EDT Records re-faxed to [facility]. * Telephone Encounter - Thad Lawrence Rolanda - 02/05/2024 12:51 PM EDT Called [facility] office they have not received this referral and asked us to please refax it tothem. Tomasa: Please refax this referral. Thank You, Rolanda Oneil Pss * [facility] 02/04/2024 3:47 PM EDT Records faxed to [facility]. * Telephone Encounter - Yusef Pandya PA-C - 02/04/2024 2:10 PM EDT Order was already placed Yusef Pandya PA-C * Telephone Encounter - Bernadine Davis - 02/04/2024 2:05 PM EDT [facility] * Telephone Encounter - Denita Rai, KERRY - 02/04/2024 1:36 PM EDT Pt notified and agrees to vascular consult. WILIAM/Yusef: Order for consult pended. Clerical: Pt would prefer to see a local physician. Please refer him to Dr Beyer/Dr Sanchez's group. Dx: Left arm swelling. Periodic cyanosis and pain. Denita Rai, KERRY * Telephone Encounter - Denita Rai RN [...] EDT Patient will be going today to [place] for STAT US @ 2:00 pm. Lisa Figueroa documented in this encounterCleveland Clinic [facility]07-31-2024 Telephone encounter Note * Telephone Encounter - Rolanda Arrington - 02/18/2024 1:22 PM EDT [facility] office spoke with Emperatriz. She states she will reach out to patient this afternoon to get scheduled. Rolanda Oneil Pss [facility]07-31-2024 Telephone encounter Note* Telephone Encounter - Denita [...] the pall med RNCC. Denita Rai RN [facility] Work Phone: 1(482) 971-945507-31-2024 Miscellaneous Notes* Telephone Encounter - Denita Rai [...] RNCC. Denita Rai RN documented in this encounterCleveland Clinic [facility]07-29-2024 Telephone encounter Note * Telephone Encounter - Nina Grigsby MD - 02/16/2024 4:59 PM EDT Agree the patient will need to be seen by pulmonary to determine the need and what type of home oxygen is indicated. [facility]07-29-2024 Miscellaneous Notes* Telephone Encounter - Nina Grigsby [...] PCP. Pt is scheduled for pulm at [facility] but not until the end of February. Encouraged pt to contact PCP for home oxygen, as well as afollow up from recent hospital visit and previous steroid orders by them. Pt verbalized understanding and states that makes jade sense to him anyhow. Please advise if you have other recommendations. Bernadine Rodriguez RN documented in this encounterC[facility]07[facility] Telephone encounter Note * Telephone Encounter - Bernadine Rodriguez RN - 02/16/2024 1:27 PM EDT Pt calls stating he would like home oxygen because his breathing treatments and steroids aren't making much of a difference in his breathing. These were prescribed by his PCP. Pt is scheduled for pulm at [facility] but not until the end of February. Encouraged pt to contact PCP for home oxygen, as well as afollow up from recent hospital visit and previous steroid orders by them. Pt verbalized understanding and states that makes jade sense to him anyhow. Please advise if you have other recommendations. Bernadine Rodriguez, RN [facility] Work Phone: [phone] Telephone encounter Note* Telephone Encounter - Enrique Boland - 02/16/2024 1:21 PM EDT Spoke to Pérez, gave him information on Pulmonogist appt in [place]. Transferred to Triage (CC out of office) to ask about oxygen. [facility]07-29-2024 Miscellaneous Notes* Telephone Encounter - Enrique Boland - 02/16/2024 1:21 PM EDT Spoke to Pérez, gave him information on Pulmonogist appt in [place]. Transferred to Triage (CC out of office) to ask about oxygen. * Telephone Encounter - [place] Kearney - 2024 8:42 AM EDT 3rd attempt to get a hold of patient to give date & time of appointment with F Wafer Production Lead Worker,however no answer & vm full. [place] K[place] * Telephone Encounter - [place] Kearney - 02/12/2024 2:17 PM EDT Tried calling patient again no answer & vm full. [place] * Telephone Encounter - [place] Kearney - 02/12/2024 10:29 AM EDT Tried calling patient to give date & time of component prep operator appointment no answer & vm full.Will try back later. [place] K[place] * Telephone Encounter - [place] Kearney - 02/12/2024 10:20 AM EDT Spoke to Ton at [facility] Pulmonology in [place] at [phone] & scheduled the soonest appointment in [facility] on 03/15/2024@[address] Lucas. [place] Kearney * Telephone Encounter - Denita Rai RN - 02/10/2024 1:39 PM EDT Pt would prefer to see [facility] Wafer Production Lead Worker. Clerical: Please refer. Thanks! Denita Rai RN * Telephone Encounter - Nina Grigsby MD - 02/10/2024 1:38 PM EDT Order signed. Options would be Dr. Wilson at [facility] or [facility]. Rene at [facility] Also we can refer him to [facility] pulmonary in [place]. * Telephone Encounter - Denita Rai RN - 02/10/2024 12:55 PM EDT Pt notified and verbalizes understanding. BRM: Pt asks if you will refer him to a component prep operator. Order pended if you approve. Denita Rai RN * Telephone Encounter - Nina Grigsby MD - 02/10/2024 11:50 AM EDT Agree with plan. Thanks, BRM * Telephone Encounter - Denita Rai, KERRY - 02/10/2024 8:32 AM EDT Pt c/o [...] recommendations? Denita Rai RN documented in this encounterCleveland Clinic [facility]07-26-[facility] Telephone encounter Note * Telephone Encounter - [place] Kearney - 2024 8:42 AM EDT 3rd attempt to get a hold of patient to give date & time of appointment with F Wafer Production Lead Worker,however no answer & vm full. [place] Kearney [facility]07-25-2024 Telephone encounter Note* Telephone Encounter - [place] Kearney - 02/12/2024 2:17 PM EDT Tried calling patient again no answer & vm full. [place] Kearney [facility]07-25-2024 Telephone encounter Note* Telephone Encounter - [place] Kearney - 02/12/2024 10:29 AM EDT Tried calling patient to give date & time of component prep operator appointment no answer & vm full.Will try back later. [place] Kearney [facility]07-25-2024 Telephone encounter Note* Telephone Encounter - [place] Kearney - 02/12/2024 10:20 AM EDT Spoke to Ton at [facility] Pulmonology in [place] at [phone] & scheduled the soonest appointment in [facility] on 03/15/2024@[address] Lucas. [place] Everett Danellekamini [facility]07-23-2024 Telephone encounter Note* Telephone Encounter - Denita Rai RN - 02/10/2024 1:39 PM EDT Pt would prefer to see [facility] Wafer Production Lead Worker. Clerical: Please refer. Thanks! Denita Rai RN [facility]07-23-2024 Telephone encounter Note* Telephone Encounter - Nina Grigsby MD - 02/10/2024 1:38 PM EDT Order signed. Options would be Dr. Wilson at [facility] or Dr. Rene at [facility] Also we can refer him to [facility] pulmonary in [place]. [facility]07-23-2024 Telephone encounter Note* Telephone Encounter - Denita Rai RN - 02/10/2024 12:55 PM EDT Pt notified and verbalizes understanding. BRM: Pt asks if you will refer him to a component prep operator. Order pended if you approve. Denita Rai RN [facility]07-23-2024 Telephone encounter Note* Telephone Encounter - Nina Grigsby MD - 02/10/2024 11:50 AM EDT Agree with plan. Thanks, BRM [facility]07-23-2024 Telephone encounter Note* Telephone Encounter - Denita Rai, RN - 02/10/2024 8:32 AM EDT Pt [...] other recommendations? Denita Rai RN [facility]07-22-2024 Telephone encounter Note* Telephone Encounter - Enrique Boland - 02/09/2024 10:42 AM EDT Confirmed referral was received at Vascular. They are currently working on referral and going to call patient. [facility]07-18-2024 Telephone encounter Note* Telephone Encounter - Vanessa Carl - 02/05/2024 1:10 PM EDT Records re-faxed to [facility]. [facility]07-18-2024 Telephone encounter Note* Telephone Encounter - Rolanda Arrington - 02/05/2024 12:51 PM EDT Called [facility] Vascular office they have not received this referral and asked us to please refax it tothem. Tomasa: Please refax this referral. Thank You, Rolanda Lawrence [facility]07-17-2024 Telephone encounter Note* Telephone Encounter - Estefani Carlfer L - 02/04/2024 3:47 PM EDT Records faxed to [facility]. [facility]07-17-2024 Telephone encounter Note* Telephone Encounter - Yusef Pandya PA-C - 02/04/2024 2:10 PM EDT Order was already placed Yusef Pandya PA-C [facility]07-17-2024 Telephone encounter Note* Telephone Encounter - Bernadine Davis - 02/04/2024 2:05 PM EDT Please send records to [facility] please [facility]07-17-2024 Telephone encounter Note* Telephone Encounter - Denita Rai RN - 02/04/2024 1:36 PM EDT Pt notified and agrees to vascular consult. WILIAM/Yusef: Order for consult pended. Clerical: Pt would prefer to see a local physician. Please refer him to Dr Beyer/Dr Sanchez's group. Dx: Left arm swelling. Periodic cyanosis and pain. Denita Rai RN [facility] Work Phone: [phone] 179-912007-17-2024 Telephone encounter Note* Telephone Encounter - Denita Rai RN - 02/04/2024 9:02 AM EDT Call placed to pt. Message received stating the number has calling restrictions. Unable to leave a message. Denita Rai RN [facility]07-17-2024 Telephone encounter Note* Telephone Encounter - Yusef Pandya PA-C - 02/04/2024 8:10 AM EDT Please inform patient of results. He should likely see vascular due to the periodic cyanosis and pain and swelling to rule out any vascular issues. Yusef Pandya PA-C [facility]07-17-2024 Telephone encounter Note* Telephone Encounter - Denita Rai RN - 02/04/2024 7:59 AM EDT Yusef: US was negative for DVT or superficial thrombus. Report scanned. Denita Rai RN [facility]07-17-2024 Telephone encounter Note* Telephone Encounter - Vanessa Carl - 02/04/2024 7:56 AM EDT Report scanned. [facility]07-16-2024 Telephone encounter Note* Telephone Encounter - Denita Rai RN - 02/03/2024 4:33 PM EDT Tomasa: Please scan results when available. Thanks! Denita Rai RN [facility]07-16-2024 Telephone encounter Note* Telephone Encounter - Lisa Figueroa - 02/03/2024 12:13 PM EDT Patient will be going today to [place] for STAT US @ 2:00 pm. Lisa Figueroa [facility]07-16-2024 History of Present illness Narrative* Yuesf Pandya PA-C - 02/03/2024 11:30 AM EDT PATIENT NAME: Cristal Gu DATE: 02/03/2024 PRIMARY CARE PHYSICIAN: Dr. Christina Azul OTHER PHYSICIANS: Dr. Verito Whelan, Dr. Marianne Fields, Dr. Damon Tse ([facility] ENT) Dr. Limon, Christina Fish (Elements copied from Dr. Grigsby's note dated [...] (HCC) Peripheral arterial disease (HCC) 2019 R CINEMA OR THEATRE MANAGER stent PAST SURGICAL HISTORY: PAST SURGICAL HISTORY Procedure Laterality Date BACK SURGERY HX 2019 CABG (4) VEIN GRAFTS & ARTERIAL GRAFT(S) 2016 LOWER EXTREMITY EMBEDDED SOFTWARE DESIGN ENGINEER W/WO STENT Right 2019 right common femoral [...] pulse is palpable and strong. 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 04/12/2022 Bone scan ([facility]) Degenerative findings. No evidence of metastatic [...] underwent a repeat chest CT 10/21/2023 w hich revealed slight growth of several pulm nodules, [...] tonsillar mass. The patient was reevaluated by [facility] ENT May 2023 and it [...] uses Percocet as needed. Continue follow-up with [facility] palliative medicine. 7. Abnormal LFTs [...] which included preparing to see the patient, [id number] patient care, completing clinical documentation, performing a medically appropriate examination, counseling and educating the patient/family/caregiver, ordering medications, tests, or p rocedures, independently interpreting results (not separately reported), communicating results to the patient/family/caregiver, and care coordination (not separately reported). documented in this encounterCleveland [facility]07-16-2024 NoteUniversity Hospitals Cleveland [facility]07-09-2024 Telephone encounter Note* Telephone Encounter - Yusef Pandya PA-C - 01/27/2024 4:27 PM EDT Lab orders placed Yusef Pandya PA-C' [facility]07-09-2024 Miscellaneous Notes* Telephone Encounter - Yusef Pandya PA-C - 01/27/2024 4:27 PM EDT Lab orders placed Yusef Pandya PA-C' * Telephone Encounter - Pavithra Jacinto MA - 01/27/2024 11:38 AM EDT Patient has an appt on 02/03/24. Would you like additional labs, if so place orders. Thanks. MICHOACANO Stephens documented in this encounterCleveland Clinic [facility]07-09-2024 Telephone encounter Note * Telephone Encounter - Pavithra Jacinto MA - 01/27/2024 11:38 AM EDT Patient has an appt on 02/03/24. Would you like additional labs, if so place orders. Thanks. MICHOACANO Stephens [facility]06-25-2024 Telephone encounter Note* Telephone Encounter - Julieth [...] January 13, 2024 1:19 PM [facility]06-25-2024 Miscellaneous Notes* Telephone Encounter - Julieth Tapia [...] pain regimen. Hannah SAMANIEGO documented in this encounterCleveland Clinic [facility]06-25-2024 Telephone encounter Note * Telephone Encounter - Hannah Ortiz - 01/13/2024 12:52 PM EDT Pérez calling regarding the fentanyl patches. He states that he hasn't used them, but states that the other medication is helping with the pain. He has to take the medication before he gets out of beddue to the pain. Patient needs clarification on pain regimen. Hannah Snow ADM [facility]06-21-2024 Note* Addendum Note - Estella Fish APRN.CNP - 01/09/2024 2:09 PM EDTAddended by: ESTELLA FISH on: 01/09/2024 02:09 PM Modules accepted: Orders [facility]06-21-2024 Miscellaneous Notes* Addendum Note - Estella Fish [...] Confirmed he would like it sent to [facility] pharmacy. Let him know it may need [...] RN * Telephone Encounter - Estella Fish APRN.RONAL - [...] Trazodone 50 mg tablets to his [facility] pharmacy for insomnia. Let him know to [...] Trazodone 50 mg at bedtime. Sent to [facility] in [place] * Telephone Encounter - Bernadine Rodriguez RN - 01/09/2024 10:39 AM EDT Pt calls stating he's been having problems sleeping and would like something for this. States I'vetried it all when asked if he's tried melatonin, tylenol pm, or benadryl. Please advise Bernadine Rodriguez RN documented in this encounterCleveland Clinic [facility]06-21-2024 Note* Addendum Note - Julieth Tapia RN - 01/09/2024 1:20 PM EDTAddended by: JULIETH TAPIA on: 01/09/2024 01:20 PM Modules accepted: Orders [facility]06-21-2024 Telephone encounter Note* Telephone Encounter - Julieth [...] Confirmed he would like it sent to [facility] pharmacy. Let him know it may need [...] and advise. Julieth Tapia RN [facility]06-21-2024 Telephone encounter Note* Telephone Encounter - Estella Fish APRN.ELDERLY CAREGIVER - 01/09/2024 12:45 PM EDT Is he [...] have end of dose pain [facility]06-21-2024 Telephone encounter Note* Telephone Encounter - Julieth [...] Trazodone 50 mg tablets to his [facility] pharmacy for insomnia. Let him know to [...] Tapia RN January 09, 2024 11:47 AM [facility]06-21-2024 Telephone encounter Note* Telephone Encounter - Estella Fish APRN.CNP - 01/09/2024 11:27 AM EDT We can try Trazodone 50 mg at bedtime. Sent to [facility] in [place] [facility]06-21-2024 Telephone encounter Note* Telephone Encounter - Bernadine Rodriguez RN - 01/09/2024 10:39 AM EDT Pt calls stating he's been having problems sleeping and would like something for this. States I'vetried it all when asked if he's tried melatonin, tylenol pm, or benadryl. 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 Julieth Tapia RN December 26, 2023 3:06 PM * Telephone Encounter - Yolande Bishop - 12/26/2023 1:21 PM EDT Cristal Gu is calling today regarding Insurance Authorization for oxycodone. Patient states thepharmacy also told him he needs something else but he could not remember. Patient has been identified by name and birthdate. Requesting response back: N/A, no action needed [phone] (cell) Yolande Bishop December 26, 2023 documented in this encounterCleveland Clinic [facility]06-07-2024 Miscellaneous Notes* Telephone Encounter - Julieth Tapia RN - 12/26/2023 2:29 PM EDT Prior Authorization Documentation Prior authorization requested for: MEDICATION Oxycodone IR 10 mg tablets Submitted via Cover My Meds/Diamond [id number] Insurance Company Name: [employer] Pharmacy Name: [facility] and Authorization approval #: AWAITING DETERMINATION Dates of Approval: from ? to ? Patient Assistance Needed: No Time Spent 10 Julieth Tapia RN December 26, 2023 documented in this encounterCleveland Clinic [facility]06-07-2024 Telephone encounter Note * Telephone Encounter - Julieth Tapia RN - 12/26/2023 2:29 PM EDT Prior Authorization Documentation Prior authorization requested for: MEDICATION Oxycodone IR 10 mg tablets Submitted via Cover My Meds/Diamond [id number] Insurance Company Name: [employer] [facility] Name: [facility] and Authorization approval #: AWAITING DETERMINATION Dates of Approval: from ? to ? Patient Assistance Needed: No Time Spent 10 Julieth Tapia RN December 26, 2023 [facility]06-07-2024 Telephone encounter Note* Telephone Encounter - Julieth Tapia RN - 12/26/2023 1:49 PM EDT Prior Authorization Documentation Prior authorization requested for: MEDICATION Pregablin 75 mcg capsules Submitted via Cover My Meds/Diamond [id number] Insurance Company Name: [employer] Pharmacy Name: [facility] and pproved today Your request has been approved Authorization Expiration Date: 12/26/2023- 07/20/2024. Pharmacy updated. Time Spent 10 Julieth Tapia RN December 26, 2023 [facility]06-07-2024 Miscellaneous Notes* Telephone Encounter - Julieth Tapia RN - 12/26/2023 1:49 PM EDT Prior Authorization Documentation Prior authorization requested for: MEDICATION Pregablin 75 mcg capsules Submitted via Cover My Meds/Diamond [id number] Insurance Company Name: [employer] ([employer] Pharmacy Name: [facility] and pproved today Your request has been approved Authorization Expiration Date: 12/26/2023- 07/20/2024. Pharmacy updated. Time Spent 10 Julieth Tapia RN December 26, 2023 documented in this encounterCleveland [facility]06-07-2024 Telephone encounter Note * Telephone Encounter - Yolande Bishop - 12/26/2023 1:21 PM EDT [facility] is calling today regarding Insurance Authorization for oxycodone. Patient states thepharmacy also told him he needs something else but he could not remember. Patient has been identified by name and birthdate. Requesting response back: N/A, no action needed [phone] (cell) Yolande Bishop December 26, 2023 [facility]06-07-2024 Telephone encounter Note* Telephone Encounter - Julieth [...] and Oxy were sent to his [facility] pharmacy. Nurse encouraged patient to call with any questions/concerns/symptom related issues. 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 [facility]06-07-2024 Miscellaneous Notes* Telephone Encounter - Julieth Tapia [...] and Oxy were sent to his [facility] pharmacy. Nurse encouraged patient to call with any questions/concerns/symptom related issues. 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 * Addendum Note - Estella Fish APRN.CNP - 12/26/2023 12:23 PM EDT Addended by: ESTELLA FISH on: 12/26/2023 12:23 PM Modules accepted: Orders * Telephone Encounter - Estella Fish APRN.ELDERLY CAREGIVER - 12/26/2023 12:21 PM EDT He is [...] from the original note were not included. Hector Limon MD You5 minutes ago (10:53 AM) [...] from the original note were not included. Hector Limon MD You; Radt Sand Rad Nurse [...] 8:19 AM EDT Care Coordination Triage Note [facility] Situation: Received page that patient called saying [...] 26, 2023 8:19 AM documented in this encounterC[facility]06-07-2024 Note* Addendum Note - Estella Fish APRN.CNP - 12/26/2023 12:23 PM EDTAddended by: ESTELLA FISH on: 12/26/2023 12:23 PM Modules accepted: Orders [facility]06-07-2024 Telephone encounter Note* Telephone Encounter - Estella [...] hours - Agree with Dex [facility]06-07-2024 Telephone encounter Note* Telephone Encounter - Denita Rai RN - 12/26/2023 11:00 AM EDT Pt notified, verbalizes understanding, and states that he has plenty of dex at home. Denita Rai RN [facility] Work Phone: [phone] Telephone encounter Note* Telephone Encounter - Denita Rai RN - 12/26/2023 10:59 AM EDT Images from the original note were not included. Hector Limon MD You5 minutes ago (10:53 AM) Yes seemed to work before. Thank.s [facility]06-07-2024 Telephone encounter Note* Telephone Encounter - Denita Rai RN - 12/26/2023 10:46 AM EDT Pt was originally on Dexamethasone 4 mg BID. Is this the dose you'd like him resume? Denita Rai RN [facility]06-07-2024 Telephone encounter Note* Telephone Encounter - Denita Rai RN - 12/26/2023 10:46 AM EDT Images from the original note were not included. Hector Limon MD You; Radt Charlene Rad Nurse Pool4 minutes ago (10:41 AM) Consider reinitiating steroids. Radiation may have ongoing improvement with time. 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 [facility]06-07-2024 Telephone encounter Note* Telephone Encounter - Denita Rai RN - 12/26/2023 8:50 AM EDT JEROME: Please see Julieth's message below. Thank you! Denita Rai RN [facility]06-07-2024 Telephone encounter Note* Telephone Encounter - Julieth Tapia RN - 12/26/2023 8:19 AM EDT Care Coordination Triage Note [facility] Situation: Received page that patient called saying [...] December 26, 2023 8:19 AM [facility]06-05-2024 Telephone encounter Note* Telephone Encounter - Denita Rai RN - 12/24/2023 2:03 PM EDT Pt notified of script. Denita Rai RN [facility] Work Phone: [phone] Miscellaneous Notes* Telephone Encounter - Denita Rai [...] advise. Denita Rai RN documented in this encounterCleveland Clinic [facility]06-05-2024 Telephone encounter Note * Telephone Encounter - Denita Rai RN - 12/24/2023 11:34 AM EDT Patient phones requesting refills as follows: Requested Prescriptions Pending Prescriptions Disp Refills levothyroxine (SYNTHROID) 75 mcg tablet 30 tablet 1 Sig: Take 1 tablet by mouth once daily. Please review and advise. Denita Rai RN [facility]06-05-2024 History of Present illness Narrative* Hector Limon MD - 12/24/2023 12:00 AM EDT [facility] Radiation Oncology Department RADIATION ONCOLOGY - COMPLETION NOTE PATIENT: CRISTAL GUDOB: 1955 DATES OF TREATMENT: 12/10/2023 to 12/24/2023 DIAGNOSIS: Lung cancer, left upper lobe, pleomorphic carcinoma, stage IIb [id number], stage IIB AJCC 8th edition (chest wall invasion), PD-L1 95%, KRAS G12C mutation present AREA TREATED: Right Oropharynx [place]shaw DELIVERED DOSE: Area: Right Oropharynx with daily [...] , , , . documented in this encounterCleveland Clinic [facility]06-05-2024 NoteUniversity Hospitals Cleveland [facility] Center06-03-2024 NoteUniversity Hospitals Cleveland Medical Center06-03-2024 History of Present illness Narrative* Nina Grigsby MD - 12/22/2023 10:26 PM EDT PATIENT NAME: Cristal Gu DATE: 12/23/2023 PRIMARY CARE PHYSICIAN: Dr. Christina Azul OTHER PHYSICIANS: Dr. Verito Whelan, Dr. Marianne Fields, Dr. Damon Tse ([facility] ENT) Dr. Limon, Christina Fish [...] (HCC) Peripheral arterial disease (HCC) 2019 R CINEMA OR THEATRE MANAGER stent PAST SURGICAL HISTORY: PAST SURGICAL HISTORY Procedure Laterality Date BACK SURGERY HX 2019 CABG (4) VEIN GRAFTS & ARTERIAL GRAFT(S) 2016 LOWER EXTREMITY EMBEDDED SOFTWARE DESIGN ENGINEER W/WO STENT Right 2019 right common femoral [...] involving face and upper back. PATHOLOGY: 10/21/2022 [id number] NGS analysis KRAS G12C mutation present, 5.2% [...] No hypermetabolic osseous lesions 01/03/2023 Chest CTA ([facility]) Bilateral hilar soft tissue nodules concerning for [...] prior study, as above. 04/12/2022 Bone scan ([facility]) Degenerative findings. No evidence of metastatic [...] [facility] of several pulm nodules, [...] tonsil. The patient was initially seen by [facility] on 07/26/2021, and clinical evaluation was most consistent with inflammatory/post-infectious findings. The patient was advised to stop chewing tobacco and continue close observation. Follow-up PET 05/12/2023 revealed significant increased size and metabolism of the right tonsillar mass. The patient was reevaluated by [facility] May 2023 and it [...] uses Percocet as needed. Continue follow-up with [facility] palliative medicine. 7. Abnormal LFTs [...] accordingly. Nina Grigsby MD documented in this encounterCleveland [facility]06-03-2024 NoteUniversity Hospitals Cleveland Medical Center06-03-2024 History of Present illness Narrative* Hector Limon MD - 12/22/2023 12:35 PM EDT [...] oriented x 3 appropriate, extremity strength intact antenna installer strength good Radiation dermatitis: No IMAGING/LAB RESULTS: [...] week and then stop. Follow-up care discussed. Hector Limon MD documented in this encounterCleveland Clinic [facility]05-29-2024 Telephone encounter Note * Telephone Encounter - [...] December 17, 2023 9:03 AM [facility]05-29-2024 Miscellaneous Notes* Telephone Encounter - Julieth Tapia [...] 2023 9:03 AM * Telephone Encounter - Summer RosibelSHUKRI garcia - 12/16/2023 4:03 PM EDT Maren was [...] advise. Rosibel Wheeler RN documented in this encounterCleveland Clinic [facility]05-28-2024 Telephone encounter Note * Telephone Encounter - [...] Please advise. Rosibel Wheeler RN [facility]05-28-2024 NoteUniversity Hospitals Cleveland Medical Center05-28-2024 History of Present illness Narrative* Hector Limon MD - 12/16/2023 3:53 PM EDT [...] oriented x 3 appropriate, extremity strength intact antenna installer strength good Radiation dermatitis: No IMAGING/LAB RESULTS: None Treatment chart checked: Yes Patient treatment site reviewed and verified:Yes Port films reviewed and current:Yes Medications started: None ASSESSMENT/PLAN: Continue radiation. Continue follow-up with palliative for pain control. Will lower his Decadron from 4 mg twice daily to a dose of 4 mg daily. Hector Limon MD documented in this encounterCleveland Clinic [facility]05-22-2024 NoteUniversity Hospitals Cleveland Medical Center05-22-2024 History of Present illness Narrative* Hector Limon MD - 12/10/2023 3:47 PM EDT [...] First treatment given. Continue radiation as prescribed. Hector Limon MD documented in this encounterCleveland Clinic [facility]05-20-2024 NoteHNO ID: [id number] Author: Hector LIMON MD Service: ? Author Type: Physician Type: Progress Notes Filed: 12/08/2023 10:05 Note Text: [facility]05-20-2024 History of Present illness Narrative* Hector Limon MD - 12/08/2023 10:04 AM EDT sim documented in this encounterCleveland Clinic [facility]05-15-2024 Telephone encounter Note * Telephone Encounter - Rosibel Wheeler LPN - 12/03/2023 12:21 PM EDT FYI--Pérez was seen in consult by Dr. Buchanan yesterday. He was to have a [facility] for radiation therapy but was not able to lie flat for the [facility] due to pain in his left neck, shoulder, and upper chest. He is prescribed oxycodone IR 15mg si tablet every 4 hours prn. When he arrived yesterday he stated he took 2 tablets in the a.m. due to his pain and that it wasn't helping. 1300 oxycodone 15mg sig: take one tablet now per Dr. Limon. Patient states last dose of [id number] 2 tabs was at 0900. SIM was [...] him he needs to contact Christina with [facility] if his pain medication is not effective. He said when he's at home resting his pain is controlled with what is prescribed. He said he is aware to call Christina if needed for medication adjustment and has her phone number. He is scheduled to start radiation therapy 12/10/23. Thanks Rosibel Wheeler RN [facility]05-15-2024 Miscellaneous Notes* Telephone Encounter - Rosibel Wheeler [...] Dr. Limon. Patient states last dose of [id number] 2 tabs was at 0900. SIM was [...] him he needs to contact Christina with [facility] if his pain medication is not effective. He said when he's at home resting his pain is controlled with what is prescribed. He said he is aware to call Christina if needed for medication adjustment and has her phone number. He is scheduled to start radiation therapy 12/10/23. Thanks Rosibel Wheeler RN documented in this encounterCleveland Clinic [facility]05-15-2024 History of Present illness Narrative* Hector Limon MD - 12/03/2023 12:00 AM EDT CRISTAL GU [id number] 12/03/2023 [facility] Radiation Oncology Department SIMULATION NOTE DATE OF SIMULATION: 12/03/2023 THERAPIST: Sapna Severino MACHINE: [employer] DIAGNOSIS: Malignant neoplasm of upper lobe, left [...] / CDT 42:54 PM documented in this encounterCleveland Clinic [facility]05-15-2024 History of Present illness Narrative* Hector Limon MD - 12/03/2023 12:00 AM EDT CRISTAL GU [id number] 12/03/2023 [facility] Department of Radiation Oncology Treatment Planning [...] Limon M.D. 2:46 PM documented in this encounterCleveland Clinic [facility]05-15-2024 NoteUniversity Hospitals Cleveland Medical Center05-15-2024 NoteUniversity Hospitals [facility] Center05-14-2024 NoteUniversity Hospitals [facility] Center05-14-2024 History of Present illness Narrative* Hector Limon MD - 12/02/2023 11:14 AM EDT Radiation Oncology - Follow Up Note PATIENT NAME: Cristal Gu PATIENT DIAGNOSIS: Lung cancer, left upper lobe, pleomorphic carcinoma, stage IIb [id number], stage IIB AJCC 8th edition (chest wall [...] left upper lobe, pleomorphic carcinoma, stage IIb [id number], stage IIB AJCC 8th edition (chest wall [...] 20 Cooper in 5 fractions. Signed by: Hector Limon MD cc: Christina Azul [address] [place] [address] documented in this encounterCleveland Clinic [facility] Pointe Hospital05-13-2024 NoteUniversity Hospitals Cleveland [facility] Center05-13-2024 History of Present illness Narrative* Nina Grigsby MD - 12/01/2023 9:00 PM EDT PATIENT NAME: Cristal Gu DATE: 12/02/2023 PRIMARY CARE PHYSICIAN: Dr. Christina Azul OTHER PHYSICIANS: Dr. Verito Whelan, Dr. Marianne Fields, Dr. Damon Tse ([facility]) Dr. Limon, Christina Fish [...] (HCC) Peripheral arterial disease (HCC) 2019 R CINEMA OR THEATRE MANAGER stent PAST SURGICAL HISTORY: PAST SURGICAL HISTORY Procedure Laterality Date BACK SURGERY HX 2019 CABG (4) VEIN GRAFTS & ARTERIAL GRAFT(S) 2016 LOWER EXTREMITY EMBEDDED SOFTWARE DESIGN ENGINEER W/WO STENT Right 2019 right common femoral [...] involving face and upper back. PATHOLOGY: 10/21/2022 [id number] NGS analysis KRAS G12C mutation present, 5.2% [...] No hypermetabolic osseous lesions 01/03/2023 Chest [place] ([facility] Bilateral hilar soft tissue nodules concerning for [...] prior study, as above. 04/12/2022 Bone scan ([facility]) Degenerative findings. No evidence of metastatic [...] +/- immunotherapy. He will also follow-up with [facility] palliative medicine to discuss more [...] uses Percocet as needed. Continue follow-up with [facility] palliative medicine. 7. Abnormal LFTs Labs from [...] accordingly. Nina Grigsby MD documented in this encounterCleveland Clinic [facility]05-07-2024 NoteUniversity Hospitals Cleveland Medical Center05-07-2024 History of Present illness Narrative* Deborah Warner RN - 11/25/2023 11:05 AM EDT Pt here for PET scan. States has not been eating or drinking much doesn't have an appetite and feels weak. Denies N/V/D. Dr. Grigsby aware and Whitney Rai RNCC updated. New orders for 1 L NS over 1 hr. Pt states understanding with POC. Deborah Warner RN documented in this encounterCleveland Clinic [facility] Pointe Hospital05-07-2024 History of Present illness Narrative* Olga Lidia Rosas RN - 11/25/2023 11:00 AM EDTSummary: IRB [id number] Informed Consent CASE [id number] (IRB [id number]): Tissue [...] RN Clinical Research Nurse documented in this encounterCleveland Clinic [facility]inte Hospital05-07-2024 NoteUniversity Hospitals Cleveland Medical Center05-07-2024 NoteUniversity Hospitals [facility] Center05-07-2024 NoteUniversity Hospitals [facility] Center05-06-2024 Telephone encounter Note* Telephone Encounter - Hannah Oglesby RN - 11/24/2023 9:47 AM EDT Please sign pended labs if agreeable-will draw with PET tomorrow. F/U with you 12/01 Thank You! Hannah Oglesby RN [facility]05-06-2024 Miscellaneous Notes* Telephone Encounter - Hannah Oglesby RN - 11/24/2023 9:47 AM EDT Please sign pended labs if agreeable-will draw with PET tomorrow. F/U with you 12/01 Thank You! Hannah Oglesby RN documented in this encounterCleveland Clinic [facility] Hospital05-03-2024 Instructions* Patient Instructions* Estella Fish APRN.CNP - 11/21/2023 10:25 AM EDT Estella Fish CNP Department of Palliative and Supportive Care Palliative Care - Specialty services in symptom management and support For questions or prescription refills, call: [phone] Friday - Friday 9AM-5PM LASHAY Evans, RN - Software Project Manager Please call 3-5 days in advance for medication refills Evenings, Weekends, Holidays: [phone] (ask for palliative medicine on-call provider) For appointments, cancellations or reschedule, call: [phone] documented in this encounterCleveland Clinic [facility]inte [facility]05-03-2024 History of Present illness Narrative* Estella iFsh APRN.CNP - 11/21/2023 10:00 AM EDT PALLIATIVE [...] a day, 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 He has been [...] helpful for pain and anxiety. Modified ESAS (Manteno Symptom Assessment Scale) Information Provided By: Patient [...] ear normal. Nose: Nose normal. Mouth/Throat: Lips: [place]. Mouth: Mucous membranes are moist. No oral [...] No suspiciousactivity was identified. 11/21/2023 by Estella Fish NP, BRASS CUTTER.ELDERLY CAREGIVER Urine Screen Lab Results Component Value Date UAMPH Negative 09/26/2021 UBARB2 Negative 09/26/2021 UBENZ Negative 09/26/2021 UCOC2 Negative 09/26/2021 UOPI Negative 09/26/2021 UOXYC Negative 09/26/2021 UPCP Negative 09/26/2021 UTHC Negative 09/26/2021 UETOH <11 09/26/2021 Assessment & Plan (Z51.5) Palliative care by specialist (primary encounter diagnosis) - Reviewed philosophy of palliative medicine - Discussed services offered by [facility] - Provided support -Discussed services offered by palliative medicine and how to contact us (Y31.92) Primary malignant neoplasm of left lung metastatic [...] 6-8 Weeks in person Estella Fish NP, BRASS CUTTER.ELDERLY CAREGIVER November 21, 2023 9:44 AM This note may have been partially generated using the Mogreet voice recognition system. While every effort was made to correct voice recognition errors, kindly be aware that some errors may occasionally occur. documented in this encounterCleveland Clinic [facility]inte [facility]05-03-2024 NoteUniversity Hospitals Cleveland Medical Center04-23-2024 Telephone encounter Note* Telephone Encounter - Denita [...] his Pall Med appointment. Call transferred to [facility], for scheduling. Denita Rai RN [facility] Work Phone: [phone] Miscellaneous Notes* Telephone Encounter - Denita Rai [...] his Pall Med appointment. Call transferred to [facility], for scheduling. Denita Rai RN documented in this encounterCleveland Clinic [facility]04-17-2024 Miscellaneous Notes* Telephone Encounter - Denita Rai [...] Denita Rai RN documented in this encounterCleveland Clinic [facility] Hospital04-16-2024 Miscellaneous Notes* Telephone Encounter - Maricruz Lopes [...] kidney function are stable. documented in this encounterCleveland Clinic South Pointe Hospital04-16-2024 [facility]04-16-2024 History of Present illness Narrative* Dominique Murphy RD - 11/04/2023 10:36 AM EDT Oncology Nutrition [...] diet such as recommendations from [employer] [place] [employer] focusing on lean proteins, whole grains, [...] learning: None Educational materials provided: [employer] [place] [employer], Heart Healthy Plate Anthropometrics: Height: Last [...] Dosing Weight: 56.3 kg Estimated kilocalorie needs: 0571-5158 kilocalories determined by 30-35 kcal/kg Estimated protein needs: 56-84 grams determined by 1.0-1.5 g/kg Dosing weight Estimated fluid needs: ~2755-5897 milliliters based on 1 mL per kcal [...] Murphy MS, RDN, LD documented in this encounterCleveland Clinic [facility]inte Hospital04-15-2024 NoteUniversity Hospitals Cleveland Medical Center04-15-2024 History of Present illness Narrative* Nina Grigsby MD - 11/03/2023 8:46 PM EDT PATIENT NAME: Cristal Gu DATE: 11/04/2023 PRIMARY CARE PHYSICIAN: Dr. Christina Azul OTHER PHYSICIANS: Dr. Verito Whelan, Dr. Marianne Fields, Dr. Damon Tse ([facility]) Christina Tavarez Portions of [...] (HCC) Peripheral arterial disease (HCC) 2019 R CINEMA OR THEATRE MANAGER stent PAST SURGICAL HISTORY: PAST SURGICAL HISTORY Procedure Laterality Date BACK SURGERY HX 2019 CABG (4) VEIN GRAFTS & ARTERIAL GRAFT(S) 2016 LOWER EXTREMITY EMBEDDED SOFTWARE DESIGN ENGINEER W/WO STENT Right 2019 right common femoral [...] involving face and upper back. PATHOLOGY: 10/21/2022 [id number] NGS analysis KRAS G12C mutation present, 5.2% [...] No hypermetabolic osseous lesions 01/03/2023 Chest CTA ([facility]) Bilateral hilar soft tissue nodules concerning for [...] prior study, as above. 04/12/2022 Bone scan ([facility]) Degenerative findings. No evidence of metastatic [...] uses Percocet as needed. Continue follow-up with [facility] palliative medicine. 7. Abnormal LFTs [...] accordingly. Nina Grigsby MD documented in this encounterCleveland Clinic [facility]inte [facility]04-02-2024 NoteUniversity Hospitals Cleveland Medical Center04-02-2024 NoteUniversity Hospitals [facility] Center04-02-2024 Miscellaneous Notes * Telephone Encounter - Estella [...] have left at home documented in this encounterCleveland Clinic [facility]04-01-2024 NoteUniversity Hospitals [facility] Medical Center04-01-2024 History of Present illness Narrative* Nina Grigsby MD - 10/20/2023 5:22 AM EDT PATIENT NAME: Cristal Gu DATE: 10/20/2023 PRIMARY CARE PHYSICIAN: Dr. Christina Azul OTHER PHYSICIANS: Dr. Verito Whelan, Dr. Marianne Fields, Dr. Damon Tse ([facility]) Christina Tavarez Portions of [...] (HCC) Peripheral arterial disease (HCC) 2019 R CINEMA OR THEATRE MANAGER stent PAST SURGICAL HISTORY: PAST SURGICAL HISTORY Procedure Laterality Date BACK SURGERY HX 2019 CABG (4) VEIN GRAFTS & ARTERIAL GRAFT(S) 2016 LOWER EXTREMITY EMBEDDED SOFTWARE DESIGN ENGINEER W/WO STENT Right 2019 right common femoral [...] involving face and upper back. PATHOLOGY: 10/21/2022 [id number] NGS analysis KRAS G12C mutation present, 5.2% [...] No hypermetabolic osseous lesions 01/03/2023 Chest CTA ([facility]) Bilateral hilar soft tissue nodules concerning for [...] prior study, as above. 04/12/2022 Bone scan ([facility]) Degenerative findings. No evidence of metastatic [...] tonsil. The patient was initially seen by [facility] on 07/26/2021, and clinical evaluation was most consistent with inflammatory/post-infectious findings. The patient was advised to stop chewing tobacco and continue close observation. Follow-up PET 05/12/2023 revealed significant increased size and metabolism of the right tonsillar mass. The patient was reevaluated by [facility] May 2023 and it [...] uses Percocet as needed. Continue follow-up with [facility] palliative medicine. 7. Abnormal LFTs [...] accordingly. Nina Grigsby MD documented in this encounterCleveland Clinic [facility] Pointe Hospital03-04-2024 NoteUniversity Hospitals Cleveland Medical Center03-04-2024 History of Present illness Narrative* Dominique Murphy RD - 09/22/2023 10:07 AM EST Oncology Nutrition Therapy Reassessment Patient left after office visit with physician and did not stay for scheduled dietitian appointment. Signed by: Dominique Murphy MS, RDN, LD documented in this encounterCleveland Clinic South Pointe Hospital03-04-2024 NoteUniversity Hospitals Cleveland Medical Center03-04-2024 History of Present illness Narrative* Nina Grigsby MD - 09/22/2023 5:35 AM EST PATIENT NAME: Cristal Gu DATE: 09/22/2023 PRIMARY CARE PHYSICIAN: Dr. Christina Azul OTHER PHYSICIANS: Dr. Verito Whelan, Dr. Marianne Fields, Dr. Damon Tse ([facility]) Christina Tavarez Portions of [...] (HCC) Peripheral arterial disease (HCC) 2019 R CINEMA OR THEATRE MANAGER stent PAST SURGICAL HISTORY: PAST SURGICAL HISTORY Procedure Laterality Date BACK SURGERY HX 2019 CABG (4) VEIN GRAFTS & ARTERIAL GRAFT(S) 2016 LOWER EXTREMITY EMBEDDED SOFTWARE DESIGN ENGINEER W/WO STENT Right 2019 right common femoral [...] involving face and upper back. PATHOLOGY: 10/21/2022 [id number] NGS analysis KRAS G12C mutation present, 5.2% [...] No hypermetabolic osseous lesions 01/03/2023 Chest CTA ([facility]) Bilateral hilar soft tissue nodules concerning for [...] prior study, as above. 04/12/2022 Bone scan ([facility]) Degenerative findings. No evidence of metastatic [...] uses Percocet as needed. Continue follow-up with [facility] palliative medicine. 7. Abnormal LFTs [...] wellbeing. Nina Grigsby MD documented in this encounterCleveland Clinic South Pointe Hospital02-26-2024 NoteUniversity Hospitals Cleveland Medical Center02-07-2024 Miscellaneous Notes* Telephone Encounter - Patricia Miller APRN.ELDERLY CAREGIVER - 08/27/2023 11:22 AM EST The following approved medication requests have been transmitted electronically. Requested Prescriptions Signed Prescriptions Disp Refills levothyroxine (SYNTHROID) 75 mcg tablet 30 tablet 1 Sig: Take 1 tablet by mouth once daily. Authorizing Provider: PATRICIA MILLER APRN.ELDERLY CAREGIVER * Telephone Encounter - Denita Rai RN - 08/27/2023 10:32 AM EST Pt notified and requests that a new prescription be sent to [facility] in [place]. WILIAM/Patricia: script pended. Denita Rai RN * [...] TFTs on return visit. documented in this encounterCleveland Clinic South Pointe Hospital02-05-2024 NoteUniversity Hospitals Cleveland Medical Center02-05-2024 History of Present illness Narrative* Nina Grigsby MD - 08/25/2023 6:17 AM EST PATIENT NAME: Cristal Gu DATE: 08/25/2023 PRIMARY CARE PHYSICIAN: Dr. Christina Azul OTHER PHYSICIANS: Dr. Verito Whelan, Dr. Marianne Fields, Dr. Damon Paynes ([facility]) Dr. Limon Portions of [...] in the area after using a metal luggage maker . With recent antibiotics his skin lesions [...] (HCC) Peripheral arterial disease (HCC) 2019 R CINEMA OR THEATRE MANAGER stent PAST SURGICAL HISTORY: PAST SURGICAL HISTORY Procedure Laterality Date BACK SURGERY HX 2019 CABG (4) VEIN GRAFTS & ARTERIAL GRAFT(S) 2016 LOWER EXTREMITY EMBEDDED SOFTWARE DESIGN ENGINEER W/WO STENT Right 2019 right common femoral [...] involving face and upper back. PATHOLOGY: 10/21/2022 [id number] NGS analysis KRAS G12C mutation present, 5.2% [...] No hypermetabolic osseous lesions 01/03/2023 Chest CTA ([facility]) Bilateral hilar soft tissue nodules concerning for [...] prior study, as above. 04/12/2022 Bone scan ([facility]) Degenerative findings. No evidence of metastatic [...] tonsil. The patient was initially seen by [facility] on 07/26/2021, and clinical [...] accordingly. Nina Grigsby MD documented in this encounterCleveland Clinic South Pointe Hospital01-26-2024 NoteUniversity Hospitals Cleveland Medical Center01-19-2024 NoteHNO ID: [id number] Author: ESTELLA FISH APRN.ELDERLY CAREGIVER Service: ? Author Type: Nurse Practitioner Type: Progress Notes Filed: 08/08/2023 13:54 Note Text: No showUniversity Hospitals Cleveland Medical Center01-08-2024 NoteUniversity Hospitals [facility] Center 06-30-2023 NoteUniversity Hospitals [facility] Center12-11-2023 History of Present illness Narrative* Nina Grigsby MD - 06/30/2023 7:59 AM EST PATIENT NAME: Cristal Gu DATE: 06/30/2023 PRIMARY CARE PHYSICIAN: Dr. Christina Azul OTHER PHYSICIANS: Dr. Verito Whelan, Dr. Marianne Fields, Dr. Damon Tse's ([facility]) Dr. Limon Portions of this encounter note have been copied from the note from 06/02/2023 and has been updatedwhere appropriate, and reflect my current medical decision making from today. CC: This is a 68 year old male with metastatic lung cancer, seen for scheduled follow-up and continued treatment. INTERIM HISTORY: Since the patient's last visit here he was reevaluated by [facility] on 05/27/2023. Itwas felt the [...] no significant medical changes. He remains in [facility] for his metastatic lung cancer, and is tolerating the medication well. Since starting [facility] his left chest wallpain has resolved and [...] (HCC) Peripheral arterial disease (HCC) 2019 R CINEMA OR THEATRE MANAGER stent PAST SURGICAL HISTORY: PAST SURGICAL HISTORY Procedure Laterality Date BACK SURGERY HX 2019 CABG (4) VEIN GRAFTS & ARTERIAL GRAFT(S) 2016 LOWER EXTREMITY EMBEDDED SOFTWARE DESIGN ENGINEER W/WO STENT Right 2019 right common femoral [...] involving face and upper back. PATHOLOGY: 10/21/2022 [id number] NGS analysis KRAS G12C mutation present, 5.2% [...] No hypermetabolic osseous lesions 01/03/2023 Chest CTA ([facility]) Bilateral hilar soft tissue nodules concerning for [...] prior study, as above. 04/12/2022 Bone scan ([facility]) Degenerative findings. No evidence of metastatic [...] accordingly. Nina Grigsby MD documented in this encounterCleveland Clinic South [facility]inte [facility]12-11-2023 NoteUniversity Hospitals Cleveland Medical Center12-05-2023 NoteUniversity Hospitals [facility] Center12-04-2023 NoteUniversity Hospitals [facility] Center11-24-2023 Instructions* Patient Instructions* Estella Fish APRN.CNP - 06/13/2023 9:54 AM EST Estella Fish CNP Department of Palliative and Supportive Care Palliative Care - Specialty services in symptom management and support For questions or prescription refills, call: [phone] Friday - Friday 9AM-5PM LASHAY Evans, RN - Software Project Manager Please call 3-5 days in advance for medication refills Evenings, Weekends, Holidays: [phone] (ask for palliative medicine on-call provider) For appointments, cancellations or reschedule, call: [phone] documented in this encounterCleveland Clinic South Pointe Hospital11-24-2023 History of Present illness Narrative* Estella Fish APRN.CNP - 06/13/2023 9:30 AM EST PALLIATIVE MEDICINE [...] has improved anxiety and sleep. Modified ESAS (Manteno Symptom Assessment Scale) Information Provided By: Patient [...] Nose: Nose normal. No rhinorrhea. Mouth/Throat: Lips: [place]. Mouth: Mucous membranes are moist. No oral [...] suspiciousactivity was identified. 06/13/2023 by Estella Fish SECRETARY, BRASS CUTTER.ELDERLY CAREGIVER Assessment & Plan (Z51.5) Palliative care by specialist (primary encounter diagnosis) - Reviewed philosophy of palliative medicine - Discussed services offered by Pall Med - Provided support -Discussed services offered by palliative medicine and how to contact us (T52.57) Primary malignant neoplasm of left lung metastatic [...] 6-8 Weeks in person Estella Fish NP, BRASS CUTTER.ELDERLY CAREGIVER June 13, 2023 7:43 AM I spent a total of 35 minutes on the date of the service which included preparing to see the patient, [id number] patient care, completing clinical documentation, obtaining and/or reviewing separately obtained history, performing a medically appropriate examination, counseling and educating the pat ient/family/caregiver, ordering medications, tests, or procedures, communicating with other HCPs (not separately reported), and independently interpreting results (not separately reported). This note may have been partially generated using the Mogreet voice recognition system. While every effort was made to correct voice recognition errors, kindly be aware that some errors may occasionally occur. documented in this encounterCleveland Clinic South Po[facility]11-24-2023 NoteUniversity Hospitals Cleveland Medical Center11-21-2023 History of Present illness Narrative* Hector Limon MD - 06/10/2023 12:00 AM EST CRISTAL GU [id number] 06/10/2023 [facility] Radiation Oncology Department SIMULATION NOTE DATE OF SIMULATION: 06/10/2023 THERAPIST: Sapna Severino MACHINE: [employer] [place] mCT DIAGNOSIS: C10 Malignant neoplasm of oropharynx AREA: [...] Electronically Signed Deon Limon M.D. / CDT 2:50 PM documented in this encounterCleveland Clinic South Pointe Hospital11-21-2023 History of Present illness Narrative* Hector Limon MD - 06/10/2023 12:00 AM EST CRISTAL GU [id number] 06/10/2023 [facility] Department of Radiation Oncology Treatment Planning [...] Limon M.D. 1:41 AM documented in this encounterCleveland Clinic South Pointe Hospital11-21-2023 NoteUniversity Hospitals Cleveland Medical Center11-21-2023 NoteUniversity Hospitals Cleveland Medical Center11-14-2023 Miscellaneous Notes * Telephone Encounter - Pavithra Jacinto MA - 06/03/2023 3:39 PM EST Opened for refill, refills not needed at this time. Pavithra Jacinto MA documented in this encounterCleveland Clinic South Pointe Hospital11-13-2023 NoteUniversity Hospitals Cleveland Medical Center11-13-2023 History of Present illness Narrative* Patricia Miller APRN.ELDERLY CAREGIVER - 06/02/2023 2:53 PM EST PATIENT NAME: [...] (HCC) Peripheral arterial disease (HCC) 2019 R CINEMA OR THEATRE MANAGER stent PAST SURGICAL HISTORY: PAST SURGICAL HISTORY Procedure Laterality Date BACK SURGERY HX 2019 CABG (4) VEIN GRAFTS & ARTERIAL GRAFT(S) 2016 LOWER EXTREMITY EMBEDDED SOFTWARE DESIGN ENGINEER W/WO STENT Right 2019 right common femoral [...] involving face and upper back. PATHOLOGY: 10/21/2022 [id number] NGS analysis KRAS G12C mutation present, 5.2% [...] No hypermetabolic osseous lesions 01/03/2023 Chest CTA ([facility]) Bilateral hilar soft tissue nodules concerning for [...] prior study, as above. 04/12/2022 Bone scan ([facility]) Degenerative findings. No evidence of metastatic [...] neck CT. [facility], and clinical evaluation most consistent with inflammatory/post-infectious findings. No suspicion for malignancy. The patient apparently chewed tobacco, and was advised to discontinue. Follow-up PET scan 05/12/2023 revealed significant increased size and metabolism of the right tonsillar mass. We will refer to [facility] ENT for evaluation, most likely [...] and adjust Synthroid dosage accordingly. Patricia Miller APRN.RONAL I spent a total of 30 minutes on the date of the service which included preparing to see the patient, [id number] patient care, completing clinical documentation, obtaining and/or reviewing separately obtained history, performing a medically appropriate examination, counseling and educating the pat ient/family/caregiver, ordering medications, tests, or procedures, independently interpreting results (not separately reported), and communicating results to the patient/family/caregiver. documented in this encounterCleveland Clinic South Pointe Hospital11-10-2023 NoteUniversity Hospitals Cleveland Medical Center11-10-2023 History of Present illness Narrative* Hector Limon MD - 05/30/2023 11:16 AM EST Radiation Oncology - Follow Up Note PATIENT NAME: Cristal Gu PATIENT DIAGNOSIS: Lung cancer, left upper lobe, pleomorphic carcinoma, stage IIb [id number], stage IIB AJCC 8th edition (chest wall [...] left upper lobe, pleomorphic carcinoma, stage IIb [id number], stage IIB AJCC 8th edition (chest wall [...] Have discussed with Dr. Tse. 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 Types: Cigarettes Was smoking cessation packet given? Patient Declined Was a referral initiated?Patient declined. documented in this encounterCleveland Clinic South Pointe Hospital10-31-2023 Miscellaneous Notes* Telephone Encounter - Denita Rai RN - 05/20/2023 1:49 PM EDT Patient started/will start taking Sotorasib on 05/14/23. Denita Rai RN documented in this encounterCleveland Clinic South Pointe Hospital10-31-2023 Miscellaneous Notes* Telephone Encounter - Denita Rai [...] comply. Denita Rai RN documented in this encounterCleveland Clinic South Pointe Hospital10-31-2023 History of Present illness Narrative* Denita Rai [...] needed. Denita Rai RN documented in this encounterCleveland Clinic South Pointe Hospital10-31-2023 NoteUniversity Hospitals Cleveland Medical Center10-30-2023 Miscellaneous Notes* Telephone Encounter - Denita Rai RN - 05/19/2023 9:40 AM EDT Pt notified of script. Denita Rai RN * Telephone Encounter - Patricia Miller APRN.CNP - 05/19/2023 9:19 AM EDT The following approved medication requests have been transmitted electronically. Requested Prescriptions Signed Prescriptions Disp Refills amoxicillin-clavulanate potassium (AUGMENTIN) 875-125 mg per tablet 14 tablet 0 Sig: Take 1 tablet by mouth two times a day for 7 days. Authorizing Provider: PATRICIA MILLER APRN.ELDERLY CAREGIVER * Telephone Encounter - Denita Rai RN [...] then? Denita Rai RN documented in this encounterCleveland Clinic South Pointe Hospital10-27-2023 Instructions* Patient Instructions* Estella Fish APRN.RONAL - 05/16/2023 9:13 AM EDT Estella Fish CNP Department of Palliative and Supportive Care Palliative Care - Specialty services in symptom management and support For questions or prescription refills, call: [phone] Friday - Friday 9AM-5PM LASHAY Evans, RN - Software Project Manager Please call 3-5 days in advance for medication refills Evenings, Weekends, Holidays: [phone] (ask for palliative medicine on-call provider) For appointments, cancellations or reschedule, call: [phone] documented in this encounterCleveland Clinic South Pointe Hospital10-27-2023 NoteUniversity Hospitals Cleveland Medical Center10-27-2023 History of Present illness Narrative* Estella Fish APRN.RONAL - 05/16/2023 8:56 AM EDT PALLIATIVE MEDICINE [...] or sertraline, not sure why. Modified ESAS ([place] Symptom Assessment Scale) Information Provided By: Patient [...] ear normal. Nose: Nose normal. Mouth/Throat: Lips: [place]. Mouth: Mucous membranes are moist. No oral [...] suspiciousactivity was identified. 05/16/2023 by Estella Fish NP, BRASS CUTTER.ELDERLY CAREGIVER Urine Screen Lab Results Component Value Date UAMPH Negative 09/26/2021 UBARB2 Negative 09/26/2021 UBENZ Negative 09/26/2021 UCOC2 Negative 09/26/2021 UOPI Negative 09/26/2021 UOXYC Negative 09/26/2021 UPCP Negative 09/26/2021 UTHC Negative 09/26/2021 UETOH <11 09/26/2021 Assessment & Plan (Z51.5) Palliative care by specialist (primary encounter diagnosis) - Reviewed philosophy of palliative medicine - Discussed services offered by [facility] - Provided support -Discussed services offered by palliative medicine and how to contact us (H50.77) Primary malignant neoplasm of left lung metastatic [...] which included preparing to see the patient, [id number] patient care, completing clinical documentation, obtaining and/or reviewing separately obtained history, performing a medically appropriate examination, counseling and educating the pat ient/family/caregiver, ordering medications, tests, or procedures, and independently interpreting results (not separately reported). Existence of Advance Directives: No - not interested Next Visit: 4 Weeks in person Estella Fish NP, BRASS CUTTER.ELDERLY CAREGIVER May 16, 2023 8:56 AM This note may have been partially generated using the Mogreet voice recognition system. While every effort was made to correct voice recognition errors, kindly be aware that some errors may occasionally occur. documented in this encounterCleveland Clinic South Pointe Hospital10-26-2023 Miscellaneous Notes* Telephone Encounter - Patricia Miller [...] appointment. WILIAM/Patricia: Pall Med order pended. Christina: FYI.... Denita Rai RN documented in this encounterCleveland Clinic South Pointe Hospital10-26-2023 Miscellaneous Notes* Telephone Encounter - Patricia Miller [...] 05/15/2023 12:55 PM EDT Signed. Patricia Miller APRN.CNP * Telephone Encounter - Denita Rai RN - 05/15/2023 12:36 PM EDT Pt notified and confirms that he has been taking his levothyroxine daily as prescribed. Betty: New script pended. Denita Rai RN * [...] we increase the Synthroid to 75 mcg. Thanks, B documented in this encounterCleveland Clinic South Pointe Hospital10-24-2023 Miscellaneous Notes* Telephone Encounter - Denita Rai RN - 05/13/2023 3:[address] Grigsby, treatment plan will be changing to Lumakras. Script sent to [facility] pharmacy. Denita Rai RN * Telephone Encounter - Analisa Stacy RPh - 05/13/2023 12:05 PM EDT Added future plan of pembrolizumab, carboplatin, and paclitaxel for after today's dose of pembrolizumab. (Was not certain if you were going to go ahead with today's dose or not.) Jose Stacy, PharmD, BCOP Whitney: Moe ValladaresD, BCOP documented in this encounterCleveland Clinic South Pointe Hospital10-24-2023 NoteUniversity Hospitals Cleveland Medical Center10-23-2023 NoteUniversity Hospitals Cleveland [facility] Center10-23-2023 NoteUniversity Hospitals [facility] Center10-19-2023 Miscellaneous Notes* Telephone Encounter - Denita Rai [...] for 4 days. Authorizing Provider: PATRICIA MILLER APRN.ELDERLY CAREGIVER * Telephone Encounter - Denita Rai RN [...] agree. Denita Rai RN documented in this encounterCleveland Clinic South Pointe Hospital10-16-2023 Miscellaneous Notes* Telephone Encounter - Analisa Stacy RPh - 05/05/2023 3:58 PM EDT Next appt and labs 05/13/23. Jose Stacy, PharmD, BCOP documented in this encounterCleveland Clinic South Pointe Hospital10-04-2023 Miscellaneous Notes* Telephone Encounter - Patricia Miller [...] pended. Denita Rai RN documented in this encounterCleveland Clinic South Pointe Hospital10-03-2023 NoteUniversity Hospitals Cleveland Medical Center09-19-2023 Miscellaneous Notes* Telephone Encounter - Denita Rai RN - 04/08/2023 4:11 PM EDT Pt notified and verbalizes understanding. Denita Rai RN * Telephone Encounter - Nina Grigsby MD - 04/08/2023 4:08 PM EDT Okay to get COVID booster. * Telephone Encounter - Denita Rai, KERRY - 04/08/2023 2:52 PM EDT Pt would like to get the latest Covid booster. Any objections? Denita Rai, KERRY documented in this encounterCleveland Clinic South Pointe Hospital09-12-2023 NoteUniversity Hospitals Cleveland Medical Center09-12-2023 History of Present illness Narrative* Ania Peters RN - 04/01/2023 1:36 PM EDT Potassium 3.3 reviewed with Raimundo Miller CNP. She would like pt to get K 20 meq IV x1 dose today andwill send a script for oral K to his pharmacy. Pt and tx nurse informed. Ania Peters RN documented in this encounterCleveland Clinic South Pointe Hospital09-12-2023 [facility]09-12-2023 Nurse Note* Yani Singer - 04/01/2023 12:51 PM EDT Patient states he has been coughing up a lot of stuff. Coughing up more blood then usual. documented in this encounterCleveland Clinic South Pointe Hospital09-12-2023 NoteUniversity Hospitals Cleveland Medical Center09-12-2023 History of Present illness Narrative* Patricia Miller APRN.RONAL - 04/01/2023 12:46 PM EDT PATIENT NAME: Cristal Gu DATE: 04/01/2023 PRIMARY CARE PHYSICIAN: Dr. Christina Azul OTHER PHYSICIANS: Dr. Verito Whelan, Dr. MarianneDr. Fay Wheeler Portions of this encounter note have been copied from the note from 03/11/2023 and has been updated where appropriate, and reflect my current medical decision making from today. CC: This is a 68 year old male with metastatic lung cancer, seen for scheduled follow-up and continued treatment. INTERIM HISTORY: [place] returns for follow-up and continued treatment. [...] (HCC) Peripheral arterial disease (HCC) 2019 R CINEMA OR THEATRE MANAGER stent PAST SURGICAL HISTORY: PAST SURGICAL HISTORY Procedure Laterality Date BACK SURGERY HX 2019 CABG (4) VEIN GRAFTS & ARTERIAL GRAFT(S) 2016 LOWER EXTREMITY EMBEDDED SOFTWARE DESIGN ENGINEER W/WO STENT Right 2019 right common femoral [...] involving face and upper back. PATHOLOGY: 10/21/2022 [id number] NGS analysis KRAS G12C mutation present, 5.2% [...] No hypermetabolic osseous lesions 01/03/2023 Chest CTA ([facility]) Bilateral hilar soft tissue nodules concerning for [...] prior study, as above. 04/12/2022 Bone scan ([facility]) Degenerative findings. No evidence of metastatic [...] with moderate relief. Will consider referral to [facility] palliative medicine if symptoms persist. [...] reaction versus viral syndrome. Improved. Patricia Miller APRN.ELDERLY CAREGIVER I spent a total of 30 minutes on the date of the service which included preparing to see the patient, [id number] patient care, completing clinical documentation, obtaining and/or reviewing separately obtained history, performing a medically appropriate examination, counseling and educating the pat ient/family/caregiver, ordering medications, tests, or procedures, independently interpreting results (not separately reported), and communicating results to the patient/family/caregiver. documented in this encounterCleveland Clinic South Pointe Hospital08-22-2023 History of Present illness Narrative* Nina Grigsby [...] (HCC) Peripheral arterial disease (HCC) 2019 R CINEMA OR THEATRE MANAGER stent PAST SURGICAL HISTORY: PAST SURGICAL HISTORY Procedure Laterality Date BACK SURGERY HX 2019 CABG (4) VEIN GRAFTS & ARTERIAL GRAFT(S) 2016 LOWER EXTREMITY EMBEDDED SOFTWARE DESIGN ENGINEER W/WO STENT Right 2019 right common femoral [...] involving face and upper back. PATHOLOGY: 10/21/2022 [id number] NGS analysis KRAS G12C mutation present, 5.2% [...] No hypermetabolic osseous lesions 01/03/2023 Chest CTA ([facility]) Bilateral hilar soft tissue nodules concerning for [...] prior study, as above. 04/12/2022 Bone scan ([facility]) Degenerative findings. No evidence of metastatic [...] neck CT. [facility], and clinical evaluation most consistent with inflammatory/post-infectious findings. No suspicion for malignancy. The patient apparently chews tobacco, and was advised to discontinue.He will follow- up with ENT as indicated. 6. Cancer related pain Severe pain left upper chest wall since August 2022. Currently on Percocet and gabapentin with moderate relief. Will consider referral to [facility] palliative medicine if symptoms persist. [...] worsen. Nina Grigsby MD documented in this encounterCleveland Clinic South Pointe Hospital08-21-2023 Miscellaneous Notes* Telephone Encounter - Analisa Stacy RPh - 03/10/2023 11:05 AM EDT Instructed by pt to change pharmacy to [place], [place]. Jose Stacy, PharmD, BCOP * Telephone Encounter - Denita Rai RN - 03/10/2023 9:59 AM EDT Pt notified of script and verbalizes understanding. Disposition: per Dr Grigsby, patient directed to: Manage at home. Provided instructions and will call back. BRM: Script pended. Denita aRi RN * Telephone Encounter - Nina Grigsby [...] authorize? Denita Rai RN documented in this encounterCleveland Clinic South Pointe Hospital08-16-2023 Miscellaneous Notes* Telephone Encounter - Denita Rai [...] suggestions? Denita Rai RN documented in this encounterCleveland Clinic South Pointe Hospital08-01-2023 Nurse Note* Pavithra Heart MA - 02/18/2023 2:39 PM EDT Patient hurt his back so he is having pain from that today. Pavithra Acuna MA documented in this encounterCleveland Clinic South Pointe Hospital08-01-2023 History of Present illness Narrative* Nina Grigsby [...] (HCC) Peripheral arterial disease (HCC) 2019 R CINEMA OR THEATRE MANAGER stent PAST SURGICAL HISTORY: PAST SURGICAL HISTORY Procedure Laterality Date BACK SURGERY HX 2019 CABG (4) VEIN GRAFTS & ARTERIAL GRAFT(S) 2016 LOWER EXTREMITY EMBEDDED SOFTWARE DESIGN ENGINEER W/WO STENT Right 2019 right common femoral [...] involving face and upper back. PATHOLOGY: 10/21/2022 [id number] NGS analysis KRAS G12C mutation present, 5.2% [...] No hypermetabolic osseous lesions 01/03/2023 Chest CTA ([facility]) Bilateral hilar soft tissue nodules concerning for [...] prior study, as above. 04/12/2022 Bone scan ([facility]) Degenerative findings. No evidence of metastatic [...] with moderate relief. Will consider referral to [facility] palliative medicine if symptoms persist. [...] care. Nina Grigsby MD documented in this encounterCleveland Clinic South Pointe Hospital07-31-2023 Miscellaneous Notes* Telephone Encounter - Yani Singer - 02/17/2023 2:14 PM EDT Patient has an OTV appointment on 02/18. Please place lab orders. Yani Singer documented in this encounterCleveland Clinic South Pointe Hospital07-20-2023 Miscellaneous Notes* Telephone Encounter - Vanessa Carl - 02/06/2023 2:11 PM EDT ER records scanned. * Telephone Encounter - Denita Rai RN - 02/06/2023 1:20 PM EDT FYI: Pt reports that he went to [facility] ER w/ a right ear ache. Diagnosed w/ an ear infection. Sent home on Amoxicillin 500 mg BID x 10 days and Ciprodex gtts BID x 7 days. Tomasa: Please scan pt's ER records from [facility]. Thanks! Denita Rai RN documented in this encounterCleveland Clinic South Pointe Hospital07-11-2023 History of Present illness Narrative* Hector Limon MD - 01/28/2023 3:15 PM EDT Radiation Oncology - Follow Up Note PATIENT NAME: Cristal Gu PATIENT DIAGNOSIS: Lung cancer, left upper lobe, pleomorphic carcinoma, stage IIb [id number], stage IIB AJCC 8th edition (chest wall [...] left upper lobe, pleomorphic carcinoma, stage IIb [id number], stage IIB AJCC 8th edition (chest wall invasion), PD-L1 95%, KRAS G12C mutation present Doing fairly well, and has had a good response to recent left supraventricular chest wall radiation. He continues active follow-up with Dr. Grigsby. We will plan to see patient back on an as-needed basis. Signed by: Hector Limon MD cc: Christina Azul [address] [place] [address] documented in this encounterCleveland Clinic South Pointe Hospital06-26-2023 Miscellaneous Notes* Telephone Encounter - Denita Rai RN - 01/13/2023 3:11 PM EDT Pt notified and verbalizes understanding. Denita Rai RN * Telephone Encounter - Patricia Miller APRN.RONAL - 01/13/2023 2:55 PM EDT The following [...] advise. Denita Rai RN documented in this encounterCleveland Clinic South Pointe Hospital06-26-2023 Miscellaneous Notes* Telephone Encounter - Bernaidne Escobar - 01/13/2023 11:18 AM EDT Patient is notified of appointments * Telephone Encounter - Cliff Marcano - 01/09/2023 9:59 AM EDT Attempted to contact patient to inform him of new appointment date & time; No Answer/ VM also full. Will attempt again at a later time. Cliff Marcano * Telephone Encounter - Rosibel Wheeler LPN - 01/08/2023 1:30 PM EDT Cliff; Will you please reschedule Maren's follow up with Dr. Limon to 01/28/23 same day as med onc. Dr. Limon would like PET results scheduled 01/17/23. Rosibel Wheeler LPN documented in this encounterCleveland Clinic South Pointe Hospital06-22-2023 Miscellaneous Notes* Telephone Encounter - Vanessa [facility] - 01/09/2023 4:03 PM EDT Records faxed to [facility] in [place] [phone]. documented in this encounterCleveland Clinic South Pointe Hospital06-21-2023 Miscellaneous Notes* Telephone Encounter - MARGARET Finnegan - 01/08/2023 2:49 PM EDT Social Work Problem Referral Note INFORMATION/REFERRAL : Cristal Gu 67 year old male was referred by Leonel Zhu to [facility] Social Work for the following reason(s): Alcohol Abuse PERSONS INTERVIEWED: patient INTERVENTION: Information & Referral Service Co-ordination Affect/Mood: The patient is noted as labile, withdrawn, and difficult or unable to assess IDENTIFIED PROBLEMS/NEEDS: Patient reports alcohol abuse. Continue to assess/collaborate Intervention/Referral to be provided:Patient is not interested in any alcohol resources. IMPRESSION/PLAN:SW received a referral from Juan Zhuitian that during her assessment on 01/07/23it was [...] tab: Yes SUMA Finnegan documented in this encounterCleveland Clinic South Pointe Hospital06-20-2023 History of Present illness Narrative* Dominique Murphy, OSCAR - 01/07/2023 12:16 PM EDT Oncology Nutrition [...] Written resources provided to patient. Contacted nurse interactive project manager and SW regarding patient's current condition [...] Dosing Weight: 57.4 kg Estimated kilocalorie needs: 6369-9462 kilocalories determined by 30-35 kcal/kg Estimated protein needs: 57-86 grams determined by 1.0-1.5 g/kg Dosing weight Estimated fluid needs: ~4841-8149 milliliters based on 1 mL per kcal [...] Murphy MS, RDN, LD documented in this encounterCleveland Clinic South Pointe Hospital06-20-2023 History of Present illness Narrative* Aurelia Bradley RN - 01/07/2023 11:17 AM EDT LFT's reviewed with , ok to proceed with tx as written. Aurelia Bradley RN documented in this encounterCleveland Clinic South Pointe Hospital06-20-2023 Miscellaneous Notes* Telephone Encounter - Lisa Figueroa - 01/07/2023 10:20 AM EDT Disregard. Patient just showed and currently in office now. Lisa Figueroa * Telephone Encounter - Lisa Figueroa - 01/07/2023 10:08 AM EDT Patient did not show for RV and treatment this morning. Lisa Figueroa documented in this encounterCleveland Clinic South Pointe Hospital06-19-2023 Miscellaneous Notes* Telephone Encounter - Yani Singer - 01/06/2023 11:43 AM EDT Patient has an OTV appointment on 01/06. Please place lab orders. Yani Singer documented in this encounterCleveland Clinic South Pointe Hospital06-16-2023 Miscellaneous Notes* Telephone Encounter - Denita Rai RN - 01/03/2023 4:20 PM EDT Disposition: irish Guillen, patient directed to: Emergency Room due to the issue being urgent. Pt confirms that he will be going to [facility] ER. Report phoned to Tea [facility] RN. Pt's last office note, copy of [...] concerns? Denita Rai RN documented in this encounterCleveland Clinic South Pointe Hospital06-06-2023 Miscellaneous Notes* Telephone Encounter - Denita Rai RN - 12/24/2022 3:44 PM EDT Rosemarie from [facility] states that they received pt's MMW script, however, they are currently out of viscous lidocaine. Script will be filled at our pharmacy. Pt notified and verbalizes understanding. [facility] [employer] instructed to cancel the script. Denita Rai RN documented in this encounterCleveland Clinic South Pointe Hospital06-06-2023 Miscellaneous Notes* Telephone Encounter - Denita Rai RN - 12/24/2022 3:07 PM EDT MMW script faxed to [facility] @ [phone]. Denita Rai RN * Telephone Encounter - Patricia Miller APRN.RONAL - 12/24/2022 2:22 PM EDT The following [...] Swish and Swallow Authorizing Provider: PATRICIA MILLER APRN.ELDERLY CAREGIVER * Telephone Encounter - Denita Rai RN [...] pt? Denita Rai RN documented in this encounterCleveland Clinic [facility]05-30-[facility]23 History of Present illness Narrative* Ania Peters [...] understanding. Aurelia Bradley RN documented in this encounterCleveland Clinic South Pointe [facility]05-30-2023 History of Present illness Narrative* Nina Grigsby [...] (HCC) Peripheral arterial disease (HCC) 2019 R CINEMA OR THEATRE MANAGER stent PAST SURGICAL HISTORY: PAST SURGICAL HISTORY Procedure Laterality Date BACK SURGERY HX 2019 CABG (4) VEIN GRAFTS & ARTERIAL GRAFT(S) 2016 LOWER EXTREMITY EMBEDDED SOFTWARE DESIGN ENGINEER W/WO STENT Right 2019 right common femoral [...] involving face and upper back. PATHOLOGY: 10/21/2022 [id number] NGS analysis KRAS G12C mutation present, 5.2% [...] prior study, as above. 04/12/2022 Bone scan ([facility]) Degenerative findings. No evidence of metastatic [...] with moderate relief. Will consider referral to [facility] palliative medicine if symptoms persist. [...] cancer. Nina Grigsby MD documented in this encounterCleveland Clinic South Po[facility]05-08-2023 Nurse Note* Ebony Marcelo Ma - 11/25/2022 10:09 AM EDT Clinical questionnaires incomplete due to not loading. Ebony Marcelo Ma documented in this encounterCleveland Clinic South Po[facility]05-08-2023 History of Present illness Narrative* Patricia Miller APRN.ELDERLY CAREGIVER - 11/25/2022 9:30 AM EDT PATIENT NAME: [...] (HCC) Peripheral arterial disease (HCC) 2019 R CINEMA OR THEATRE MANAGER stent PAST SURGICAL HISTORY: PAST SURGICAL HISTORY Procedure Laterality Date BACK SURGERY HX 2019 CABG (4) VEIN GRAFTS & ARTERIAL GRAFT(S) 2016 LOWER EXTREMITY EMBEDDED SOFTWARE DESIGN ENGINEER W/WO STENT Right 2019 right common femoral [...] involving face and upper back. PATHOLOGY: 10/21/2022 [id number] NGS analysis KRAS G12C mutation present, 5.2% [...] prior study, as above. 04/12/2022 Bone scan ([facility]) Degenerative findings. No evidence of metastatic [...] 2015. Status post CABG x 4 in [place] 2015. Currently stable. Continue management per PCP/cardiology. 4. Peripheral vascular disease Status post balloon angioplasty right lower leg 2019. On long-term antiplatelet agents with Plavix and Pletal. Continue management per PCP/vascular surgery. 5. Abnormal right tonsil on PET scan (05/28/2021) and neck CT (07/11/2021). Radiographic abnormalities identified on baseline PET scan and neck CT. [facility], and clinical evaluation most consistent with inflammatory/post-infectious findings. No suspicion for malignancy. The patient apparently chews tobacco, and was advised to discontinue.He will follow- up with ENT as indicated. 6. Cancer related pain Severe pain left upper chest wall since August 2022. Currently on Percocet and gabapentin with moderate relief. Will consider referral to [facility] palliative medicine if symptoms persist. 7. Abnormal LFTs Labs from 11/11/2022 revealed significant elevation of the SGOT and SGPT, most likely transaminitis secondary to immunotherapy versus supplements (fenbendazole and curcumin). The patient was advised to discontinue all supplements, and avoid other agents which might contribute to liver dysfunction. Repeat labs and return visit in 1 week. Patricia Miller APRN.ELDERLY CAREGIVER I spent a total of 30 minutes on the date of the service which included preparing to see the patient, [id number] patient care, completing clinical documentation, obtaining and/or reviewing separately obtained history, performing a medically appropriate examination, counseling and educating the pat ient/family/caregiver, ordering medications, tests, or procedures, independently interpreting results (not separately reported), and communicating results to the patient/family/caregiver. documented in this encounterCleveland Clinic [facility]05-04-2023 Miscellaneous Notes* Telephone Encounter - Ebony Marcelo Ma - 11/21/2022 11:[address] lab orders for appointment on 11/25/22. Ebony Marcelo Ma documented in this encounterCleveland Clinic [facility] Hospital05-03-2023 Miscellaneous Notes* Telephone Encounter - Dominique Murphy [...] ensure a day and has met with microsoft dynamics developer before. We discussed the possibility of adding an antidepressant. Pt is concerned about his LFTs and he does not want to take anything that could effect those. Is there something you can prescribe that may increase appetite & help depression while not altering his liver function? Pt uses [facility] in [place] if you want to send something. I will also copy microsoft dynamics developer and social work to be aware of changes/issues with patient. Merissa Fam RN documented in this encounterCleveland Clinic [facility]05-03-2023 History of Present illness Narrative* G Deon Limon MD - 11/20/2022 10:29 AM EDT Radiation Oncology - Follow Up Note PATIENT NAME: Cristal Gu PATIENT DIAGNOSIS: Lung cancer, left upper lobe, pleomorphic carcinoma, stage IIb [id number], stage IIB AJCC 8th edition (chest wall [...] left upper lobe, pleomorphic carcinoma, stage IIb [id number], stage IIB AJCC 8th edition (chest wall invasion), PD-L1 95%, KRAS G12C mutation present Doing fairly well, with good intial response to palliative radiation. He continues pembrolizumab thorkailash Grigsby. Plan to see back in 4-6 weeks. Signed by: Hector Limon MD cc: Christina Azul [address] [id number] documented in this encounterCleveland Clinic South Po[facility] Hospital05-01-2023 History of Present illness Narrative* Nina Grigsby [...] (HCC) Peripheral arterial disease (HCC) 2019 R CINEMA OR THEATRE MANAGER stent PAST SURGICAL HISTORY: PAST SURGICAL HISTORY Procedure Laterality Date BACK SURGERY HX 2019 CABG (4) VEIN GRAFTS & ARTERIAL GRAFT(S) 2016 LOWER EXTREMITY EMBEDDED SOFTWARE DESIGN ENGINEER W/WO STENT Right 2019 right common femoral [...] involving face and upper back. PATHOLOGY: 10/21/2022 [id number] NGS analysis KRAS G12C mutation present, 5.2% [...] prior study, as above. 04/12/2022 Bone scan ([facility]) Degenerative findings. No evidence of metastatic [...] with moderate relief. Will consider referral to [facility] palliative medicine if symptoms persist. [...] week. Nina Grigsby MD documented in this encounterCleveland Clinic [facility]04-27-2023 Miscellaneous Notes* Telephone Encounter - Yani Singer - 11/14/2022 9:16 AM EDT Patient has an OTV appointment on 11/18. Please place lab orders. Yani Singer documented in this encounterCleveland Clinic [facility]04-25-2023 History of Present illness Narrative* Hector Limon MD - 11/12/2022 12:00 AM EDT [facility] Radiation Oncology Department RADIATION ONCOLOGY - COMPLETION NOTE PATIENT: CRISTAL GUDOB: 1955 DATES OF TREATMENT: 10/28/2022- 11/12/2022 DIAGNOSIS: Lung cancer, left upper lobe, pleomorphic carcinoma, stage IIb [id number], stage IIB AJCC 8th edition (chest wall [...] / WST 0:33 AM documented in this encounterCleveland Clinic [facility]04-24-2023 History of Present illness Narrative* Rita Hurst [...] time. Rita Hurst RN documented in this encounterCleveland Clinic [facility] Hospital04-24-2023 Miscellaneous Notes* Telephone Encounter - Merissa Rodríguez (Financial Aid Counselor) - 11/11/2022 3:10 PM EDT Ambulatory Pharmacy Prior Authorization Note Provider Intervention Required?: No- Pharmacy completed on your behalf. Rx Plan: Drug: Oxycodone-Acetaminophen 5/325 Cover My Meds Diamond: [id number] Determination: Approved Prior Authorization/Case #: [id number] Prior Authorization Expiration: 07/10/2023 Time to PA Submission in CMM: 15 min Time to PA Determination in CMM: Same day Additional Information: For questions relating to this submission, please contact [facility] at [phone] documented in this encounterCleveland Clinic [facility] Hospital04-24-2023 Miscellaneous Notes* Telephone Encounter - Merissa Fam RN - 11/11/2022 12:51 PM EDT Please sign if agreeable. Merissa Fam RN documented in this encounterCleveland Clinic [facility]04-24-2023 History of Present illness Narrative* Nina Grigsby [...] (HCC) Peripheral arterial disease (HCC) 2019 R CINEMA OR THEATRE MANAGER stent PAST SURGICAL HISTORY: PAST SURGICAL HISTORY Procedure Laterality Date BACK SURGERY HX 2019 CABG (4) VEIN GRAFTS & ARTERIAL GRAFT(S) 2016 LOWER EXTREMITY EMBEDDED SOFTWARE DESIGN ENGINEER W/WO STENT Right 2019 right common femoral [...] involving face and upper back. PATHOLOGY: 10/21/2022 [id number] NGS analysis KRAS G12C mutation present, 5.2% [...] prior study, as above. 04/12/2022 Bone scan ([facility]) Degenerative findings. No evidence of metastatic [...] neck CT. [facility], and clinical evaluation most consistent with inflammatory/post-infectious findings. No suspicion for malignancy. The patient apparently chews tobacco, and was advised to discontinue.He will follow- up with ENT as indicated. 6. Cancer related pain Severe pain left upper chest wall since August 2022. Currently on Percocet and gabapentin with moderate relief. Will consider referral to [facility] palliative medicine if symptoms persist. 7. Abnormal LFTs Labs from today reveal significant elevation of the SGOT and SGPT, most likely transaminitis secondary to immunotherapy. We will hold treatment today and repeat labs in 1 week on return. A long course of steroids will be considered if LFTs remain abnormal. Nina Grigsby MD documented in this encounterCleveland Clinic [facility]04-17-2023 History of Present illness Narrative* Hector Limon MD - 11/04/2022 12:12 PM EDT Radiation Oncology - On Treatment Review (OTR) Note PATIENT NAME: Cristal Gu PATIENT DIAGNOSIS: Lung cancer, left upper lobe, pleomorphic carcinoma, stage IIb [id number], stage IIB AJCC 8th edition (chest wall [...] and imaging reviewed. Continue radiation as outlined. Hector Limon MD documented in this encounterCleveland Clinic [facility]04-15-2023 Miscellaneous Notes* Telephone Encounter - Jayson Allred MD - 11/02/2022 9:24 AM EDT Called with increasing cough and occasional blood tinged sputum. Deenies any other symptoms. Levaquin sent Instructed to see Dr. Grigsby next week documented in this encounterCleveland Clinic [facility]04-13-2023 History of Present illness Narrative* Nina Grigsby [...] (HCC) Peripheral arterial disease (HCC) 2019 R CINEMA OR THEATRE MANAGER stent PAST SURGICAL HISTORY: PAST SURGICAL HISTORY Procedure Laterality Date BACK SURGERY HX 2019 CABG (4) VEIN GRAFTS & ARTERIAL GRAFT(S) 2016 LOWER EXTREMITY EMBEDDED SOFTWARE DESIGN ENGINEER W/WO STENT Right 2019 right common femoral [...] involving face and upper back. PATHOLOGY: 10/21/2022 [id number] NGS analysis KRAS G12C mutation present, 5.2% [...] prior study, as above. 04/12/2022 Bone scan ([facility]) Degenerative findings. No evidence of metastatic [...] persist. Nina Grigsby MD documented in this encounterCleveland Clinic [facility]04-12-2023 History of Present illness Narrative* Dominique Gray, RD - 10/30/2022 9:05 AM EDT Oncology Nutrition [...] states he was reading online and watching [employer] vidoes and felt confused. Discussed with pt [...] MS, RDN, LD documented in this encounterCleveland Clinic [facility]04-06-2023 History of Present illness Narrative* G Deon Limon MD - 10/24/2022 5:19 PM EDT Radiation Oncology - Follow Up/new problem note PATIENT NAME: Cristal Gu PATIENT DIAGNOSIS: Lung cancer, left upper lobe, pleomorphic carcinoma, stage IIb [id number], stage IIB AJCC 8th edition (chest wall [...] left upper lobe, pleomorphic carcinoma, stage IIb [id number], stage IIB AJCC 8th edition (chest wall [...] will help his symptoms control. Signed by: Hector Limon MD cc: Christina Brothers Jorge Alberto [facility] [place] [address] No referring provider defined for this encounter. documented in this encounterCleveland Clinic [facility] Hospital04-06-2023 Miscellaneous Notes* Telephone Encounter - Denita Rai [...] Reminded pt of his appointment w/ the microsoft dynamics developer this coming Friday, 10/28. Pt verbalizes understanding. [...] protocol. Denita Rai RN documented in this encounterCleveland Clinic [facility] Hospital04-05-2023 Miscellaneous Notes* Telephone Encounter - Rolanda Oneil Pss - 10/23/2022 8:11 AM EDT Patient has appt already scheduled with JEROME on 10/28. Patient is scheduled to see Crm Marketing Executive @ 10:00 after his JEROME on 10/28. Rolanda Oneil Pss * Telephone Encounter - Denita Rai RN [...] Pt voiced interest in meeting w/ the microsoft dynamics developer. Order pended. Denita Rai RN documented in this encounterCleveland Clinic [facility] Hospital04-03-2023 Nurse Note* Yani Singer - 10/21/2022 1:37 PM EDT Clinical questionnaires incomplete due to Nurse was Interrupted by provider during rooming process documented in this encounterCleveland Clinic [facility] Hospital04-03-2023 History of Present illness Narrative* Nina Grigsby [...] (HCC) Peripheral arterial disease (HCC) 2019 R CINEMA OR THEATRE MANAGER stent PAST SURGICAL HISTORY: PAST SURGICAL HISTORY Procedure Laterality Date BACK SURGERY HX 2019 CABG (4) VEIN GRAFTS & ARTERIAL GRAFT(S) 2016 LOWER EXTREMITY EMBEDDED SOFTWARE DESIGN ENGINEER W/WO STENT Right 2019 right common femoral [...] prior study, as above. 04/12/2022 Bone scan ([facility]) Degenerative findings. No evidence of metastatic [...] neck CT. [facility], and clinical evaluation most consistent with inflammatory/post-infectious findings. No suspicion for malignancy. The patient apparently chews tobacco, and was advised to discontinue.He will follow- up with ENT as indicated. 6. Cancer related pain Severe pain left upper chest wall since August 2022. Currently on Percocet with moderate relief. Will consider referral to [facility] palliative medicine if symptoms persist. Nina Grigsby MD documented in this encounterCleveland Clinic [facility]04-03-2023 History of Present illness Narrative* Hector Limon MD - 10/21/2022 12:00 AM EDT RICCARDOCRISTAL [id number] 10/21/2022 [facility] Radiation Oncology Department SIMULATION NOTE DATE OF SIMULATION: 10/21/2022 THERAPIST: Elizabeth Severino MACHINE: [employer] DIAGNOSIS: Malignant neoplasm of upper lobe, left [...] nursing. Electronically Signed Deon Limon M.D. / NRS 34:40 PM documented in this encounterCleveland Clinic [facility]04-03-2023 History of Present illness Narrative* Hector Limon MD - 10/21/2022 12:00 AM EDT RICCARDOCRISTAL [id number] 10/21/2022 [facility] Department of Radiation Oncology Treatment Planning [...] Limon M.D. 33:29 PM documented in this encounterCleveland Clinic [facility] Hospital03-31-2023 Miscellaneous Notes* Telephone Encounter - Yani Singer - 10/18/2022 3:50 PM EDT Patient has an OTV appointment on 10/21. Please place lab orders. Yani Singer documented in this encounterCleveland Clinic [facility] Hospital03-31-2023 Miscellaneous Notes* Telephone Encounter - Lisa Figueroa - 10/18/2022 8:42 AM EDT Appointments have been scheduled and patient has been notified by Alexandria Rivera Thank you! Lisa Figueroa * Telephone Encounter [...] Please obtain ER reports. Thanks, Patricia Miller APRN.ELDERLY CAREGIVER * Telephone Encounter - Denita Rai RN - 10/17/2022 2:54 PM EDT Pt c/o intolerable pain in his left chest, shoulder and arm. Rates his pain 9- 10/10. Describes as aconstant aching pain. Was seen recently in the ER and prescribed a medrol dose pack. Pt notes the medrol tore up his stomach. Has old scripts of Oxycodone and [place] at home. Took one dose of each w/ very little relief. What do you advise for his pain? Denita Rai RN documented in this encounterCleveland Clinic [facility] Hospital03-28-2023 Miscellaneous Notes* Telephone Encounter - Denita Rai [...] 10:00 AM EDT RADIOLOGY CALL CENTER INTAKE PROGRAM STRATEGIST: BIBI EXT: [id number] DATE: 10/15/2022 TIME: 10:01AM TRACKING #. [id number] REQUESTING PERSON: Alexandria PHONE/PAGER: [phone] REQUESTING STAFF: Jaydon Grigsby MD PHONE/PAGER: [phone] SPECIFICS OF THE REQUEST: (Please be as detailed as possible. If request is lymph node biopsy, specify LOCATION of the node if possible): IMAGING GUIDED BIOPSY LUNG ] SPECIAL REQUESTS: TISSUE SAMPLE, LABWORK: Routine Evaluation -Fine needle aspiration (FNA), core biopsy, no preference, unsure, specific processing request for pathology (For example: send for ER, [place], HER2/sarah or possible lymphoma send in RPMI [...] TO EVALUATE APPROPRIATENESS/FEASIBILITY OF THE REQUEST) IMAGING: [facility] (If the imaging was obtained outside the [facility] system, then it needs to be submitted for review prior to approval.) Note to all persons requesting biopsies: All biopsy requests will be scheduled as quickly as possible, based on the clinical urgency, availability of appointment times, the need to hold anti-thrombolytic therapy (aspirin, blood thinners) and the patient s schedule, including the need for an available emergency detail driver. If a percutaneous biopsy or drainage is not felt to be safe or an alternative method for establishing a diagnosis is possible, this will be discussed directly with the requesting physician. documented in this encounterCleveland Clinic South Po[facility] Hospital03-28-2023 History of Present illness Narrative* Nina Grigsby [...] his left shoulder. He was seen at [facility] ER on 10/09/2022 and given a [...] (HCC) Peripheral arterial disease (HCC) 2019 R CINEMA OR THEATRE MANAGER stent PAST SURGICAL HISTORY: PAST SURGICAL HISTORY Procedure Laterality Date BACK SURGERY HX 2019 CABG (4) VEIN GRAFTS & ARTERIAL GRAFT(S) 2016 LOWER EXTREMITY EMBEDDED SOFTWARE DESIGN ENGINEER W/WO STENT Right 2019 right common femoral [...] prior study, as above. 04/12/2022 Bone scan ([facility]) Degenerative findings. No evidence of metastatic [...] at length. We elected to refer to [facility] interventional radiology to evaluate for [...] 2015. Status post CABG x 4 in [place] 2015. Currently stable. Continue management per PCP/cardiology. [...] indicated. Nina Grigsby MD documented in this encounterCleveland Clinic South Pointe Hospital03-27-2023 NotebmoUnKindred [facility]03-06-[facility] History of Present illness Narrative* Nina Grigsby [...] leg. He is due to see his utility bill collector to evaluate for possible left leg vascular [...] (HCC) Peripheral arterial disease (HCC) 2019 R CINEMA OR THEATRE MANAGER stent PAST SURGICAL HISTORY: PAST SURGICAL HISTORY Procedure Laterality Date BACK SURGERY HX 2019 CABG (4) VEIN GRAFTS & ARTERIAL GRAFT(S) 2016 LOWER EXTREMITY EMBEDDED SOFTWARE DESIGN ENGINEER W/WO STENT Right 2019 right common femoral [...] prior study, as above. 04/12/2022 Bone scan ([facility]) Degenerative findings. No evidence of metastatic [...] indicated. Nina Grigsby MD documented in this encounterCleveland Clinic South Pointe Hospital03-01-2023 NoteUT Cardiology - [facility] [place] [facility] . is a 67 y.o. year old male patient being seen for Coronary Artery Disease, Peripheral Vascular Disease, Carotid Stenosis, and Hypertension Patient Active Problem List Diagnosis Coronary artery disease involving coronary bypass graft of hopi heart without angina pectoris PVD (peripheral vascular disease) ([facility] Primary hypertension Stenosis of carotid artery No [...] and cilostazol. Carotid ultrasound done at the [facility] 10/30/2020: Report mentions significant area reduction [...] and Lung CA He underwent VATS at [facility] for a lung mass last [...] Nose: Nose normal. Mouth/Throat: (more content not included)...[facility] 09-12-2022 Miscellaneous Notes* Telephone Encounter - [place] Everett Caio - 09/12/2022 11:46 AM EST Patient will get labs with his CT on 09/17/2022. I took patient off lab schedule on 09/23/2022@3:15pm. [place] Marguerite Caio * Addendum Note - Nina Grigsby MD [...] on 09/23/22@3:15 pm & BRM@3:30 pm. [place] Marguerite Caio * Telephone Encounter - Denita Rai RN - 09/11/2022 3:49 PM EST Pt's son, Eduardo, notified of script and verbalizes understanding. Clerical: Please move up pt's CT's to be done as soon as possible and call pt when scheduled. Will need f/u w/ BRM to review results. Thanks! Denita Rai RN * Telephone Encounter - Patricia Miller APRN.ELDERLY CAREGIVER - 09/11/2022 2:41 PM EST The following [...] well. Denies fevers. Has been taking Guerita Cascade cold as well as Advil for his symptoms. Pt due to have CT scans 10/08/22. What do you advise? Denita Sessler, RN documented in this encounterCleveland Clinic South Pointe Hospital01-31-2023 History of Present illness Narrative* Nina Grigsby [...] (HCC) Peripheral arterial disease (HCC) 2019 R CINEMA OR THEATRE MANAGER stent PAST SURGICAL HISTORY: PAST SURGICAL HISTORY Procedure Laterality Date BACK SURGERY HX 2019 CABG (4) VEIN GRAFTS & ARTERIAL GRAFT(S) 2016 LOWER EXTREMITY EMBEDDED SOFTWARE DESIGN ENGINEER W/WO STENT Right 2019 right common femoral [...] prior study, as above. 04/12/2022 Bone scan ([facility]) Degenerative findings. No evidence of metastatic [...] indicated. Nina Grigsby MD documented in this encounterCleveland Clinic South Pointe Hospital12-06-2022 History of Present illness Narrative* G Deon Limon MD - 06/25/2022 10:43 AM EST Radiation Oncology - Follow Up Note PATIENT NAME: Cristal Gu PATIENT DIAGNOSIS: Lung cancer, left upper lobe, pleomorphic carcinoma, stage IIb [id number], stage IIB AJCC 8th edition (chest wall [...] left upper lobe, pleomorphic carcinoma, stage IIb [id number], stage IIB AJCC 8th edition (chest wall [...] will order future staging examinations. Signed by: Hector Limon MD cc: Christina Azul [address] [place] [address] No referring provider defined for this encounter. documented in this encounterCleveland Clinic South Pointe Hospital12-06-2022 History of Present illness Narrative* Patricia Miller APRN.ELDERLY CAREGIVER - 06/25/2022 10:09 AM EST PATIENT NAME: [...] some episodes when he could not get welt insole channeler the mornings. He was not COVID tested. [...] (HCC) Peripheral arterial disease (HCC) 2019 R CINEMA OR THEATRE MANAGER stent PAST SURGICAL HISTORY: PAST SURGICAL HISTORY Procedure Laterality Date BACK SURGERY HX 2019 CABG (4) VEIN GRAFTS & ARTERIAL GRAFT(S) 2016 LOWER EXTREMITY EMBEDDED SOFTWARE DESIGN ENGINEER W/WO STENT Right 2019 right common femoral [...] prior study, as above. 04/12/2022 Bone scan ([facility]) Degenerative findings. No evidence of metastatic [...] be referred back to ENT. Patricia Miller APRN.RONAL I spent a total of 30 minutes on the date of the service which included preparing to see the patient, [id number] patient care, completing clinical documentation, obtaining and/or reviewing separately obtained history, performing a medically appropriate examination, counseling and educating the pat ient/family/caregiver, ordering medications, tests, or procedures, independently interpreting results (not separately reported), and communicating results to the patient/family/caregiver. I spent a total of 30 minutes on the date of the service which included preparing to see the patient, [id number] patient care, completing clinical documentation, obtaining and/or reviewing separately obtained history, performing a medically appropriate examination, counseling and educating the pat ient/family/caregiver, ordering medications, tests, or procedures, independently interpreting results (not separately reported), and communicating results to the patient/family/caregiver. documented in this encounterCleveland Clinic South Po[facility]11-22-2022 History of Present illness Narrative* G Deon Limon MD - 06/11/2022 1:28 PM EST Radiation Oncology - Follow Up Note PATIENT NAME: Cristal Gu PATIENT DIAGNOSIS: Lung cancer, left upper lobe, pleomorphic carcinoma, stage IIb [id number], stage IIB AJCC 8th edition (chest wall [...] left upper lobe, pleomorphic carcinoma, stage IIb [id number], stage IIB AJCC 8th edition (chest wall [...] patient back after CT chest. Signed by: Hector Limon MD cc: Christina Azul [address] [place] [id number] No referring provider defined for this encounter. documented in this encounterCleveland Clinic South Pointe [facility]11-18-2022 Miscellaneous Notes* Telephone Encounter - Rosibel Wheeler [...] 1:45. Rosibel Wheeler LPN documented in this encounterCleveland Clinic South Pointe Hospital11-17-2022 Miscellaneous Notes* Telephone Encounter - Yanira Infante - 06/06/2022 9:13 AM EST Called patient to follow up on missed appointment with Radha Palmer PA-C on 05/16. Unable to reach patient or leave a message at the number provided - mailbox is full. documented in this encounterCleveland Clinic South Pointe Hospital10-24-2022 Miscellaneous Notes* Telephone Encounter - Yanira [...] needs at this time. documented in this encounterCleveland Clinic South Pointe Hospital10-12-2022 NotePROCEDURE: XR HIP RT 2 3V WO PELVIS HISTORY: Hip pain COMPARISON: None. FINDINGS: BONES:No fracture, acute abnormality, or significant arthropathy. SOFT TISSUES:No visible soft tissue swelling. EFFUSION:None visible. OTHER: Atherosclerotic coronary artery disease. Endovascular stent within iliac artery. IMPRESSION: 1. No acute bone abnormality or significant degenerative joint disease of the right hip. Electronically authenticated by: TRUDY GUTIERREZ Date: 2022-05-01 17:2810-12-2022 History of Present illness Narrative* G Deon Limon MD - 05/01/2022 12:00 AM EDT [facility] Radiation Oncology Department RADIATION ONCOLOGY - COMPLETION NOTE PATIENT: CRISTAL GUDOB: 1955 DATES OF TREATMENT: 03/26/2022- 05/01/2022 DIAGNOSIS: Lung cancer, left upper lobe, pleomorphic carcinoma, stage IIb [id number], stage IIB AJCC 8th edition (chest wall [...] follow-up. Staff Physician Deon Limon M.D. / YOUSUF 24:03 PM documented in this encounterCleveland Clinic South Po[facility] Hospital10-10-2022 Miscellaneous Notes* Telephone Encounter - Domonique Estrada RN - 04/29/2022 3:10 PM EDT Provided code for pharmacy, patient's medication ran through. * Telephone Encounter - TIFFANY Navarro - 04/29/2022 2:51 PM EDT [facility] in [place] called stating they need a dx code for ipratropium documented in this encounterCleveland Clinic South Po[facility] Hospital10-10-2022 Miscellaneous Notes* Telephone Encounter - Merissa Fam RN - 04/29/2022 9:17 AM EDT Pt I today for radiation and was finally able to get nebulizer machine. He does not have the duonebmedication at home and pharmacy will not fill it as it was an old prescription. Please review and sign new Rx if agreeable. Thank you! Merissa Fam RN documented in this encounterCleveland Clinic South Po[facility] Hospital10-03-2022 History of Present illness Narrative* Hector Limon MD - 04/22/2022 11:25 AM EDT Radiation Oncology - On Treatment Review (OTR) Note PATIENT NAME: Cristal Gu PATIENT DIAGNOSIS: Lung cancer, left upper lobe, pleomorphic carcinoma, stage IIb [id number], stage IIB AJCC 8th edition (chest wall [...] Tolerating treatments very well. Continue as outlined. Hector Limon MD documented in this encounterCleveland Clinic [facility] Hospital09-28-2022 Miscellaneous Notes* Telephone Encounter - Virgie Dominguez - 04/17/2022 11:14 AM EDT Patient coming in to see you on Friday04/30/22 for follow up with labs. Please add lab orders. Thanks. Virgie Dominguez MA documented in this encounterCleveland Clinic South Po[facility] Hospital09-26-2022 History of Present illness Narrative* Hector Limon MD - 04/15/2022 9:13 AM EDT Radiation Oncology - On Treatment Review (OTR) Note PATIENT NAME: Cristal Gu PATIENT DIAGNOSIS: Lung cancer, left upper lobe, pleomorphic carcinoma, stage IIb [id number], stage IIB AJCC 8th edition (chest wall [...] ibuprofen. Patient tolerating left lung radiation well. Hector Limon MD documented in this encounterCleveland Clinic South Po[facility] Hospital09-22-2022 Miscellaneous Notes* Telephone Encounter - Rosibel Wheeler LPN - 04/11/2022 12:19 PM EDT Patient states pharmacy did contact him and they are working on it. Rosibel Wheeler LPN * Telephone Encounter - Rosibel Wheeler LPN - 04/01/2022 1:17 PM EDT I called [facility] in [place] to get an update on [employer]'s nebulizer as he said he does not have one at home. Ofe in the pharmacy is going to look into it to see why this prescription was never completed. Laurence call the patient to get updated insurance information. Rosibel Wheeler LPN documented in this encounterCleveland Clinic [facility] Hospital09-19-2022 History of Present illness Narrative* Hector Limon MD - 04/08/2022 10:18 AM EDT Radiation Oncology - On Treatment Review (OTR) Note PATIENT NAME: Cristal Gu PATIENT DIAGNOSIS: Lung cancer, left upper lobe, pleomorphic carcinoma, stage IIb [id number], stage IIB AJCC 8th edition (chest wall [...] Otherwise continue radiation. Chart and imaging reviewed. Hector Limon MD documented in this encounterCleveland Clinic South Po[facility] Hospital09-14-2022 History of Present illness Narrative* Dominique Gray RD - 04/03/2022 9:03 AM EDT Oncology [...] Dosing Weight: 58.9 kg Estimated kilocalorie needs: 5284-8687 kilocalories determined by 30-35 kcal/kg Estimated protein needs: 59-88 grams determined by 1.0-1.5 g/kg Dosing weight Estimated fluid needs: ~0107-5566 milliliters based on 1 mL per kcal [...] MS, RDN, LD documented in this encounterCleveland Clinic [facility] Po[facility] Hospital09-12-2022 Miscellaneous Notes* Telephone Encounter - Carolyn Pérez MA - 04/01/2022 3:45 PM EDT [facility] called asking if the RX can get Fax over The pharmacy need a new Rx [phone] Fax The code need to be on the RX documented in this encounterCleveland Clinic South Po[facility] Hospital09-12-2022 History of Present illness Narrative* G Deon Limon MD - 04/01/2022 9:43 AM EDT Radiation Oncology - On Treatment Review (OTR) Note PATIENT NAME: Cristal Gu PATIENT DIAGNOSIS: Lung cancer, left upper lobe, pleomorphic carcinoma, stage IIb [id number], stage IIB AJCC 8th edition (chest wall [...] and imaging reviewed. Continue radiation as outlined. Hector Limon MD documented in this encounterCleveland Clinic [facility]09-06-2022 History of Present illness Narrative* Hector Limon MD - 03/26/2022 9:48 AM EDT Radiation Oncology - On Treatment Review (OTR) Note PATIENT NAME: Cristal Gu PATIENT DIAGNOSIS: Lung cancer, left upper lobe, pleomorphic carcinoma, stage IIb [id number], stage IIB AJCC 8th edition (chest wall [...] First treatment given. Continue radiation as prescribed. Hector Limon MD documented in this encounterCleveland Clinic [facility] Hospital08-31-2022 History of Present illness Narrative* Hector Limon MD - 03/20/2022 4:42 PM EDT sim documented in this encounterCleveland Clinic South Po[facility] Hospital08-30-2022 History of Present illness Narrative* Patricia Miller APRN.CNP - 03/19/2022 9:18 AM EDT PATIENT NAME: [...] (HCC) Peripheral arterial disease (HCC) 2019 R CINEMA OR THEATRE MANAGER stent PAST SURGICAL HISTORY: PAST SURGICAL HISTORY Procedure Laterality Date BACK SURGERY HX 2019 CABG (4) VEIN GRAFTS & ARTERIAL GRAFT(S) 2016 LOWER EXTREMITY EMBEDDED SOFTWARE DESIGN ENGINEER W/WO STENT Right 2019 right common femoral [...] which included preparing to see the patient, [id number] patient care, completing clinical documentation, obtaining and/or reviewing separately obtained history, performing a medically appropriate examination, counseling and educating the pat ient/family/caregiver, ordering medications, tests, or procedures, independently interpreting results (not separately reported), and communicating results to the patient/family/caregiver. documented in this encounterCleveland Clinic South Po[facility] Hospital08-25-2022 History of Present illness Narrative* G Deon Engeler, MD - 03/14/2022 12:00 AM EDT CRISTAL GU [id number] 03/14/2022 [facility] Radiation Oncology Department SIMULATION NOTE DATE OF SIMULATION: 03/14/2022 THERAPIST: Barbara Severino MACHINE: [employer] DIAGNOSIS: Malignant neoplasm of upper lobe, left bronchus or lungC34.12 AREA: LUNG CONTRAST: None <Select> Consent in Epic: Yes PATIENT POSITION: Supine. FIXATION DEVICE: In order to achieve accurate and reproducible treatments, the patient is immobilized with THE WINGBOARD, B PAD, CUSTOM VACBAG, SBRT KNEE SPONGE 4DCT WAS UTILIZED AT [facility] A time-out was conducted and recorded [...] nursing. Electronically Signed Deon Limon M.D. / NRS 21:18 PM documented in this encounterCleveland Clinic South Pointe Hospital08-25-2022 History of Present illness Narrative* Hector Limon MD - 03/14/2022 12:00 AM EDT CRISTAL GU [id number] 03/14/2022 [facility] Department of Radiation Oncology Treatment Planning [...] Limon M.D. 24:37 PM documented in this encounterCleveland Clinic South Po[facility] Hospital08-10-2022 Miscellaneous Notes* Telephone Encounter - Rolanda Oneil [facility] - 02/27/2022 12:09 PM EDT Called [facility] spoke with Delfina. They received this referral and patient was seen at their office today by Cristy davey PA at 10:00. They will be faxing her note from this visit to our office once it is completed. Rolanda Oneil [facility] * Telephone Encounter - Vanessa Fam [facility] - 02/26/2022 2:05 PM EDT Records faxed to [facility]. * Telephone Encounter - Ebony Barcenas [facility] - 02/26/2022 12:58 PM EDT [facility] derm scheduling out to April. Tomasa will you please fax records to [facility] jose [phone]. They will call pt to schedule, hannaho in your box. Thanks! * Telephone Encounter [...] all day. Pt has not seen a lining stamper for his skin issue. Consult order pended if you agree. Denita Rai RN documented in this encounterCleveland Clinic South Pointe Hospital08-03-2022 History of Present illness Narrative* Patricia Miller [...] cancer, seen for scheduled follow-up. INTERIM HISTORY: [facility] returns for follow-up and labs. At his [...] rash is still pruritic. He is applying veut-aid-[id number]. He denies fevers, chills, night sweats and [...] (HCC) Peripheral arterial disease (HCC) 2019 R CINEMA OR THEATRE MANAGER stent PAST SURGICAL HISTORY: PAST SURGICAL HISTORY Procedure Laterality Date BACK SURGERY HX 2019 CABG (4) VEIN GRAFTS & ARTERIAL GRAFT(S) 2016 LOWER EXTREMITY EMBEDDED SOFTWARE DESIGN ENGINEER W/WO STENT Right 2019 right common femoral [...] hemoglobin has improved to 10.2. Patricia Miller APRN.RONAL documented in this encounterCleveland Clinic South Po[facility] Hospital07-25-2022 Miscellaneous Notes* Telephone Encounter - Denita Rai [...] try a medrol-dose pack. Thanks. Patricia Miller APRN.CNP * Telephone Encounter - [...] possible. Denita Rai RN documented in this encounterCleveland Clinic South Pointe Hospital07-21-2022 Miscellaneous Notes* Telephone Encounter - Lisa Figueroa - 02/07/2022 4:30 PM EDT Patient sent to [facility] for TSC. Faxed order to [facility] February 07, 2022 4:31 PM And the department is going to work with patient tomorrow. Lisa Figueroa documented in this encounterCleveland Clinic South Pointe Hospital07-21-2022 History of Present illness Narrative* Patricia Miller APRN.ELDERLY CAREGIVER - 02/07/2022 2:30 PM EDT PATIENT NAME: [...] (HCC) Peripheral arterial disease (HCC) 2019 R CINEMA OR THEATRE MANAGER stent PAST SURGICAL HISTORY: PAST SURGICAL HISTORY Procedure Laterality Date BACK SURGERY HX 2019 CABG (4) VEIN GRAFTS & ARTERIAL GRAFT(S) 2016 LOWER EXTREMITY EMBEDDED SOFTWARE DESIGN ENGINEER W/WO STENT Right 2019 right common femoral [...] PRBCs. Patricia Miller APRN.RONAL documented in this encounterCleveland Clinic South Pointe Hospital07-13-2022 Nurse Note* Merissa Fam RN - 01/30/2022 5:02 PM EDT Radiation Therapy - Patient Education Note PATIENT NAME: Cristal Gu PATIENT January 30, 2022 [facility] FACILITY/LOCATION: [facility] [place] READINESS TO LEARN Cognitive Ability: Alert and [...] need for social work, van service, and microsoft dynamics developer. Signed by: Merissa Fam RN documented in this encounterCleveland Clinic South Pointe Hospital07-13-2022 History of Present illness Narrative* Hector Limon MD - 01/30/2022 3:00 PM EDT Radiation Oncology -follow-up note PATIENT NAME: Cristal Gu PATIENT REQUESTING PROVIDER: Dr. Grigsby DIAGNOSIS: 66 year old male with lung cancer, left upper lobe, pleomorphic carcinoma, stage IIb [id number], stage IIB AJCC 8th edition (chest wall [...] (HCC) Peripheral arterial disease (HCC) 2019 R CINEMA OR THEATRE MANAGER stent Prior radiation therapy, collagen vascular disease, or inflammatory bowel disease: No PAST SURGICAL HISTORY Procedure Laterality Date BACK SURGERY HX 2019 CABG (4) VEIN GRAFTS & ARTERIAL GRAFT(S) 2016 LOWER EXTREMITY EMBEDDED SOFTWARE DESIGN ENGINEER W/WO STENT Right 2019 right common femoral [...] left upper lobe, pleomorphic carcinoma, stage IIb [id number], stage IIB AJCC 8th edition (chest wall [...] cone beam CT image guidance.. Signed by: Hector Limon MD cc: Christina Azul [facility] [place] [address] Nina Grigsby ([facility]) [address] [place] [address] [place] [address] documented in this encounterCleveland Clinic South Pointe Hospital07-12-2022 History of Present illness Narrative* Ton Cervantes CRT - 01/29/2022 7:59 AM EDT PULM FUNCTION SMARTBLOCK: Provider: Verito Whelan MD Spirometry w/BD: 1 DLCO: 1 System: 5 - [id number] documented in this encounterCleveland Clinic South Pointe Hospital07-12-2022 History of Present illness Narrative* Verito Whelan [...] 9 on presentation. 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 He smoked 75 pack years [...] (HCC) Peripheral arterial disease (HCC) 2019 R CINEMA OR THEATRE MANAGER stent PAST SURGICAL HISTORY Procedure Laterality Date BACK SURGERY HX 2019 CABG (4) VEIN GRAFTS & ARTERIAL GRAFT(S) 2016 LOWER EXTREMITY EMBEDDED SOFTWARE DESIGN ENGINEER W/WO STENT Right 2019 right common femoral [...] Normal Neuro: Gait normal. Labs and imaging: [facility] [address] [place] [address] Test Date: 2022-01-29 Pat Name: CRISTAL GU Department: Room: Gender: Male Fitter'S Assistant: : 1955 Requested By: Order Number: [id number] Reading MD: Interpretive Statements Pre BD: FVC [...] for spirometry met. // IMPRESSION: Site: ID: [id number] Name: CRISTAL GU Visit Date: 01/29/2022 Doctor: Fitter'S Assistant: Ton Cervantes Age: 66 Date of : [...] 0.69 0.27 1.69 0.40 57 0.52 30 [id number] (L/sec) 2.45 1.14 4.26 1.07 43 1.27 [...] 2.68 BLOOD GASES HgbGmL (gm/L) 120-180 94 [facility] [address] [place] [address] Test Date: 2021-05-21 Pat Name: CRISTAL GU Department: Room: Gender: Male Fitter'S Assistant: : 1955 Requested By: Order Number: [id number] Reading MD: Interpretive Statements PRE AND POST [...] and carboxyhemoglobin corrected. //AH IMPRESSION: Site: ID: [id number] Name: CRISTAL GU Visit Date: 05/21/2021 Doctor: Fitter'S Assistant: Merissa Ashley Age: 66 Date of : [...] 0.70 0.27 1.71 0.17 24 0.28 61 MPR81-18 (L/sec) 2.48 1.16 4.30 0.44 17 0.73 [...] * No suspicious FDG avid osseous lesion. Dietary Aid: PSCB Transcribe Date/Time: May 28 2021 9:33A [...] in 3 months Verito Whelan MD Respiratory [facility] documented in this encounterCleveland Clinic South Pointe Hospital07-12-2022 History of Present illness Narrative* RT Kaylee(R) [...] 29, 2022 7:40 AM documented in this encounterCleveland Clinic South Pointe Hospital07-05-2022 History of Present illness Narrative* Nina Grigsby [...] (HCC) Peripheral arterial disease (HCC) 2019 R CINEMA OR THEATRE MANAGER stent PAST SURGICAL HISTORY: PAST SURGICAL HISTORY Procedure Laterality Date BACK SURGERY HX 2019 CABG (4) VEIN GRAFTS & ARTERIAL GRAFT(S) 2016 LOWER EXTREMITY EMBEDDED SOFTWARE DESIGN ENGINEER W/WO STENT Right 2019 right common femoral [...] 8. Nina Grigsby MD documented in this encounterCleveland Clinic South Pointe Hospital06-27-2022 History of Present illness Narrative* Nina Grigsby [...] (HCC) Peripheral arterial disease (HCC) 2019 R CINEMA OR THEATRE MANAGER stent PAST SURGICAL HISTORY: PAST SURGICAL HISTORY Procedure Laterality Date BACK SURGERY HX 2019 CABG (4) VEIN GRAFTS & ARTERIAL GRAFT(S) 2016 LOWER EXTREMITY EMBEDDED SOFTWARE DESIGN ENGINEER W/WO STENT Right 2019 right common femoral [...] 8. Nina Grigsby MD documented in this encounterCleveland Clinic South Pointe Hospital06-06-2022 Miscellaneous Notes* Telephone Encounter - Denita Rai RN - 12/24/2021 2:32 PM EDT Pt notified of script and verbalizes understanding. Denita Rai RN * Telephone Encounter - Nina Grigsby MD - 12/24/2021 12:31 PM EDT We will send prescription for KCl 10 M EQ's daily. Please inform the patient. WILIAM Dennis * Telephone Encounter - Kelly Hyman RN - 12/24/2021 12:24 PM EDT Potassium level 3.2 today. Pt is able to take pills without difficulty and [facility] [place] [facility]. documented in this encounterCleveland Clinic South Pointe Hospital06-06-2022 History of Present illness Narrative* Denisse Campbell RN - 12/24/2021 11:53 AM EDT . documented in this encounterCleveland Clinic South Pointe Hospital06-06-2022 History of Present illness Narrative* Nina Grigsby [...] (HCC) Peripheral arterial disease (HCC) 2019 R CINEMA OR THEATRE MANAGER stent PAST SURGICAL HISTORY: PAST SURGICAL HISTORY Procedure Laterality Date BACK SURGERY HX 2019 CABG (4) VEIN GRAFTS & ARTERIAL GRAFT(S) 2016 LOWER EXTREMITY EMBEDDED SOFTWARE DESIGN ENGINEER W/WO STENT Right 2019 right common femoral [...] 2015. Status post CABG x 4 in [place] 2015. Currently stable. Continue management per PCP/cardiology. [...] 8. Nina Grigsby MD documented in this encounterCleveland Clinic South Pointe Hospital05-26-2022 Miscellaneous Notes* Telephone Encounter - Yanira Montilla [...] ok at this time. documented in this encounterCleveland Clinic South Pointe Hospital05-18-2022 Miscellaneous Notes* Telephone Encounter - Denita Rai [...] better than cycle 1. 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 Do you need to [...] protocol. Denita Rai RN documented in this encounterCleveland Clinic South Pointe Hospital05-16-2022 History of Present illness Narrative* Denita Rai [...] N/A Denita Rai RN documented in this encounterCleveland Clinic South Pointe Hospital05-16-2022 History of Present illness Narrative* Yusef Pandya [...] (HCC) Peripheral arterial disease (HCC) 2019 R CINEMA OR THEATRE MANAGER stent PAST SURGICAL HISTORY: PAST SURGICAL HISTORY Procedure Laterality Date BACK SURGERY HX 2019 CABG (4) VEIN GRAFTS & ARTERIAL GRAFT(S) 2016 LOWER EXTREMITY EMBEDDED SOFTWARE DESIGN ENGINEER W/WO STENT Right 2019 right common femoral [...] scheduled. Yusef Pandya PA-C documented in this encounterCleveland Clinic South Pointe Hospital05-16-2022 Miscellaneous Notes* Telephone Encounter - Vanessa Fam [facility] - 12/03/2021 9:01 AM EDT Records faxed. * Telephone Encounter - Alexandria Spicer Sec - 11/30/2021 11:08 AM EDT Appt with PCP Dr Azul for hypotension on Friday12-07-21 1:45pm Pérez Randolph is known to Dr azul but please send most recent records including med list and Blood pressure. Dr Azul has a new fax # [phone] documented in this encounterCleveland Clinic South Pointe Hospital05-13-2022 History of Present illness Narrative* Patricia Miller APRN.ELDERLY CAREGIVER - 11/30/2021 10:41 AM EDT PATIENT NAME: [...] (HCC) Peripheral arterial disease (HCC) 2019 R CINEMA OR THEATRE MANAGER stent PAST SURGICAL HISTORY: PAST SURGICAL HISTORY Procedure Laterality Date BACK SURGERY HX 2019 CABG (4) VEIN GRAFTS & ARTERIAL GRAFT(S) 2016 LOWER EXTREMITY EMBEDDED SOFTWARE DESIGN ENGINEER W/WO STENT Right 2019 right common femoral [...] treatment. Patricia Miller APRN.RONAL documented in this encounterCleveland Clinic South Pointe Hospital05-13-2022 Nurse Note* Pavithra Jacinto MA - 11/30/2021 10:31 AM EDT Patient states he is feeling better today, he even went out for Breakfast. Pavithra Jacinto MA documented in this encounterCleveland Clinic South Pointe Hospital05-12-2022 Miscellaneous Notes* Telephone Encounter - Denita Rai [...] advise? Denita Rai RN documented in this encounterCleveland Clinic South Pointe Hospital05-09-2022 History of Present illness Narrative* Nina Grigsby [...] (HCC) Peripheral arterial disease (HCC) 2019 R CINEMA OR THEATRE MANAGER stent PAST SURGICAL HISTORY: PAST SURGICAL HISTORY Procedure Laterality Date BACK SURGERY HX 2019 CABG (4) VEIN GRAFTS & ARTERIAL GRAFT(S) 2016 LOWER EXTREMITY EMBEDDED SOFTWARE DESIGN ENGINEER W/WO STENT Right 2019 right common femoral [...] closely. Nina Grigsby MD documented in this encounterCleveland Clinic South Pointe Hospital05-02-2022 Miscellaneous Notes* Telephone Encounter - Denita Rai RN - 11/19/2021 2:20 PM EDT Per Jaclyn @ Dr Azul's office, pt [...] 2.09 Ros Navarro RN documented in this encounterCleveland Clinic South Pointe Hospital05-02-2022 Miscellaneous Notes* Telephone Encounter - Denita Rai RN - 11/19/2021 11:39 AM EDT Voicemail message received from Jaclyn @ Dr Azul's office. They can see pt tomorrow @ 1030 AM. Pt notified and states that he has an appointment in [place] tomorrow. Call placed to Dr Azul's office. [...] back. Denita Rai RN documented in this encounterCleveland Clinic South Pointe Hospital05-02-2022 Miscellaneous Notes* Telephone Encounter - Denita Rai RN - 11/19/2021 9:42 AM EDT DISCHARGE CALL BACK Today's date: November 19, 2021 Notified of Pt discharge by: Hospital records requested. Patient discharged on 11/18/2021 from [facility] to Home Primary Cancer Diagnosis: Lung Cancer Admitting Diagnosis: Hypertension, Acute renal failure Discharge Summary/SBAR reviewed: Yes Handoff Discussed with Transitional Software Project Manager: NO Psychosocial Risk Factors: None If patient [...] back. Denita Rai RN documented in this encounterCleveland Clinic South Pointe Hospital04-29-2022 Miscellaneous Notes* Telephone Encounter - Denita Rai RN - 11/16/2021 4:41 PM EDT Pt notified and verbalizes understanding. Agrees to go to [facility] ER for eval. Report phoned to Kelli @ [facility] ER. Med list and today's labs [...] 25 mg BID as prescribed per his [facility] Surface Hydrologist. Advised he notify his utility bill collector of his readings. Any other suggestions for him? Should he go to the ER since it is so late in the day? Denita Rai RN documented in this encounterCleveland Clinic South Pointe Hospital04-29-2022 Miscellaneous Notes* Telephone Encounter - Yusef Pandya [...] Thanks! Denita Rai RN documented in this encounterCleveland Clinic South Pointe Hospital04-29-2022 History of Present illness Narrative* Vanessa Cruz RN - 11/16/2021 9:17 AM EDT Creat 2.33. [facility], health care / medical job titles spoke with Dr. Grigsby and to patient. Patient is to come in on Friday for repeat labs and IVF. Vanessa Cruz RN * Aurelia Bradley RN - 11/16/2021 9:05 AM EDT Pt took BP meds at about 0930, he will recheck his BP at home in 2 hours. Aurelia Bradley RN documented in this encounterCleveland Clinic South Pointe Hospital04-27-2022 Miscellaneous Notes* Telephone Encounter - Yusef Pandya PA-C - 11/14/2021 12:09 PM EDT Done Yusef Pandya PA-C * Telephone Encounter - Denita Rai RN - 11/14/2021 11:09 AM EDT BRM/Yusef: Lab order pended. In addition, please place fluid orders for tomorrow and Friday. Thanks! Denita Rai RN * Telephone Encounter - Lisa Figueroa - 11/14/2021 10:39 AM EDT Patient added to treatment schedule. Lisa [place] * Telephone Encounter - Denita [...] the treatment schedule. Thanks! documented in this encounterCleveland Clinic [facility]04-26-2022 History of Present illness Narrative* MARGARET Finnegan - 11/13/2021 3:59 PM EDT SOCIAL WORK FOLLOW UP NOTE: [facility]ER CENTER Date of service:11/13/21 Cristal Gu is being seen for a follow [...] as appropriate. SUMA Finnegan documented in this encounterCleveland Clinic [facility]04-26-2022 History of Present illness Narrative* Vanessa Cruz RN - 11/13/2021 11:35 AM EDT IVF today and labs tomorrow. Vanessa Cruz RN documented in this encounterCleveland Clinic South Po[facility]04-25-2022 Miscellaneous Notes* Telephone Encounter - Yusef Pandya PA-C - 11/12/2021 12:23 PM EDT Orders signed Yusef Pandya PA-C * Telephone Encounter - Denita Rai RN - 11/12/2021 12:11 PM EDT Pt notified and verbalizes understanding. BRM/Yusef: BMP orders for Friday pended. Please review [...] labs again on 11/14. documented in this encounterCleveland Clinic South Po[facility]04-22-2022 Miscellaneous Notes* Telephone Encounter - Denita Rai [...] protocol. Denita Rai RN documented in this encounterCleveland Clinic [facility]04-18-2022 History of Present illness Narrative* Patricia Miller APRN.ELDERLY CAREGIVER - 11/05/2021 9:00 AM EDT PATIENT NAME: [...] caner here to start treatment. INTERIM HISTORY: [place] returns for follow-up and to begin [...] (HCC) Peripheral arterial disease (HCC) 2019 R CINEMA OR THEATRE MANAGER stent PAST SURGICAL HISTORY: PAST SURGICAL HISTORY Procedure Laterality Date BACK SURGERY HX 2019 CABG (4) VEIN GRAFTS & ARTERIAL GRAFT(S) 2016 LOWER EXTREMITY EMBEDDED SOFTWARE DESIGN ENGINEER W/WO STENT Right 2019 right common femoral [...] care would be adjuvant chemotherapy with a chinik doublet followed by adjuvant radiation therapy. His [...] indicated. Patricia Miller APRN.RONAL documented in this encounterCleveland Clinic [facility] Po[facility]04-13-2022 History of Present illness Narrative* Jacklyn Rios [...] 31, 2021 TIME: 2:07 PM * Iwona Cassidy, flavoring machine operator - 10/31/2021 2:00 PM EDT Radiology Service Progress Note PATIENT NAME: Cristal uG DATE OF SERVICE: October 31, 2021 TIME: [...] 31, 2021 2:46 PM documented in this encounterCleveland Clinic [facility]04-12-2022 Miscellaneous Notes* Telephone Encounter - Denita Rai RN - 10/30/2021 10:33 AM EDT Spoke w/ Jaz regarding pt's MRI. Informed her that the pt is currently scheduled to have this done @ [facility] in [place]. No need to schedule w/ [facility] at this time. Informed her that the pt is aware of his [place] appointment. Denita Rai RN * Telephone Encounter - Denita Rai RN - 10/30/2021 10:22 AM EDT 3rd attempt made to contact Jaz @ [facility]. No answer. Message left requesting call back. Denita Rai RN * Telephone Encounter - Denita Rai RN - 10/29/2021 11:27 AM EDT 2nd attempt made to contact Jaz @ [facility]. No answer. Message left requesting call back. Denita Rai RN * Telephone Encounter - Denita Rai RN - 10/26/2021 3:40 PM EDT Voicemail message received from [facility] requesting to speak w/ a nurse regarding pt's MRI. Call placed to number provided. No answer. Message left requesting call back. Denita Rai RN documented in this encounterCleveland Clinic [facility] Po[facility]04-12-2022 Miscellaneous Notes* Telephone Encounter - Denita Rai RN - 10/30/2021 8:59 AM EDT FYI: Pt does not wish to enroll in a trial at this time. Denita Rai RN documented in this encounterCleveland Clinic [facility]04-11-2022 Miscellaneous Notes* Telephone Encounter - Patricia Miller [...] Thanks! Denita Rai RN documented in this encounterCleveland Clinic [facility] Po[facility]04-11-2022 History of Present illness Narrative* Denita Rai RN - 10/29/2021 10:58 AM EDT Software Project Manager Pre Chemo Patient identified by name and date of . YES Confirmed date and time for chemotherapy ? YES Other appointments (labs, imaging) discussed? YES Discussed where to park (pin chaser), charge for parking NO Discussed where to [...] topics discussed, interventions needed: JC Rai RN * Denita Rai RN - [...] N/A Denita Rai RN documented in this encounterCleveland Clinic [facility]04-11-2022 History of Present illness Narrative* Katlin Omer, [facility] - 10/29/2021 10:53 AM EDT Images from the original note were not included. [facility] [place] Department of Pharmacy Oncology Pharmacy Medication Education [...] patient Katlin Omer RPh documented in this encounterCleveland Clinic [facility]04-08-2022 Miscellaneous Notes* Telephone Encounter - Bernadine Escobar [...] Thanks! Denita Rai RN documented in this encounterCleveland Clinic [facility]04-07-2022 Miscellaneous Notes* Telephone Encounter - Denita Rai RN - 10/25/2021 8:10 AM EDT Scripts for antiemetics and folic acid pended. Please review and approve. Thanks, Denita Rai RN documented in this encounterCleveland Clinic [facility]04-06-2022 History of Present illness Narrative* G Deon Limon MD - 10/24/2021 3:02 PM EDT Radiation Oncology - New Patient/Consult Note PATIENT NAME: Cristal Gu PATIENT REQUESTING PROVIDER: Dr. Grigsby DIAGNOSIS: 66 year old male with lung cancer, left upper lobe, pleomorphic carcinoma, stage IIb [id number], stage IIB AJCC 8th edition (chest wall [...] (HCC) Peripheral arterial disease (HCC) 2019 R CINEMA OR THEATRE MANAGER stent Prior radiation therapy, collagen vascular disease, or inflammatory bowel disease: No PAST SURGICAL HISTORY Procedure Laterality Date BACK SURGERY HX 2019 CABG (4) VEIN GRAFTS & ARTERIAL GRAFT(S) 2016 LOWER EXTREMITY EMBEDDED SOFTWARE DESIGN ENGINEER W/WO STENT Right 2019 right common femoral [...] left upper lobe, pleomorphic carcinoma, stage IIb [id number], stage IIB AJCC 8th edition (chest wall [...] follow-up after his initial chemotherapy. Signed by: Hector Limon MD cc: Christina Azul [facility] [place] [address] Nina Grigsby (Luciano) [address] [place] [address] [place] [address] documented in this encounterCleveland Clinic [facility]04-04-2022 Miscellaneous Notes* Telephone Encounter - Raine Gallegos RN - 10/22/2021 11:16 AM EDT Returned call to Mr Gu and identified self by name and title. Cristal explained that he had received a call from his [employer] insurance company who questioned thelocation of his upcoming MRI. Cristal was a bit confused after the call and wanted to confirm that our office did not have any concerns regarding completing his MRI at [facility]. I assured Cristal that his insurance has authorized the imaging and it may be completed at any [facility] location. He was scheduled for first available, and voiced comfort with driving to [place]. No additional questions at this time. Raine METZ, RN Specialty Software Project Manager * Telephone Encounter - Mary Alice Raulito SAMANIEGO - 10/19/2021 3:48 PM EDT Cristal Gu is calling Renetta Ponce MD today regarding Care Coordination, calling to discuss going to another hospital for his MRI. Patient has been identified by name and birthdate. Duration of symptoms: N/A Requesting response back: call on cell [phone] (home) [phone] (cell) Mary Alice SAMANIEGO October 19, 2021 documented in this encounterCleveland Clinic [facility]04-01-2022 History of Present illness Narrative* Renetta Ponce MD - 10/19/2021 2:40 PM EDT Images from the original note were not included. [facility] NEW PATIENT VISIT Department of Hematology and Medical Oncology PATIENT NAME: Cristal Gu [facility] NO.: [id number] DATE OF SERVICE: 10/19/2021 PCP: Christina Azul MD REFERRING PROVIDER: Marianne Fields MD. DIAGNOSIS: Pleomorphic carcinoma of the DARCIE STAGE: [id number], stage IIB AJCC 8th edition (chest wall [...] disease, PAD s/p stenting, NSTEMI s/p CABG [id number] and alcohol use who presents to discuss [...] nod[facility], [facility] 2.[facility] He saw Dr. Fields from thoracic surgery and had a PET CT at [facility] which showed hypermetabolic uptake in [...] (HCC) Peripheral arterial disease (HCC) 2019 R CINEMA OR THEATRE MANAGER stent PAST SURGICAL HISTORY: PAST SURGICAL HISTORY Procedure Laterality Date BACK SURGERY HX 2019 CABG (4) VEIN GRAFTS & ARTERIAL GRAFT(S) 2016 LOWER EXTREMITY EMBEDDED SOFTWARE DESIGN ENGINEER W/WO STENT Right 2019 right common femoral [...] 355 264 244 204 Recent Labs 10/04/21 04210/03/211 10/02/21 0442 10/01/21 0616 09/25/21 1056 07/03/21 [...] receive therapy closer to home at the [facility] location. I will place a referral for him to see oncology at that site. All questions and concerns have been addressed. Renetta Ponce MD, FACP Associate Staff [facility] [place] October 19, 2021 CC: Marianne Fields MD documented in this encounterCleveland Clinic [facility]04-01-2022 Miscellaneous Notes* Telephone Encounter - Virgie Dominguez - 01/14/2022 9:30 AM EDT Patient scheduled to see you on Friday01/22/22 for follow up treatment. Please add lab orders. Thanks, Virgie Dominguez MA documented in this encounterCleveland Clinic [facility] Hospital04-01-2022 Miscellaneous Notes* Telephone Encounter - Virgie Dominguez - 01/30/2022 12:49 PM EDT Patient coming in on 02/07/22 for follow up labs. Please add lab orders. Thanks, Virgie Dominguez MA documented in this encounterCleveland Clinic [facility]04-01-2022 Nurse Note* Denisse Brasher LPN - 10/19/2021 9:56 AM EDT Additional intake questions: Has the patient had fever, nausea, vomiting, diarrhea, constipation, fatigue for > 1 week? No Does the patient have a decreased appetite? No Does patient want to see a Test Rack Operator? No (yes to any of above [...] By: Denisse Brasher LPN documented in this encounterCleveland Clinic South Po[facility] Hospital03-24-2022 History of Present illness Narrative* Aracelis Carrillo APRN.RONAL - 10/11/2021 3:22 PM EDT Images from the original note were not included. [facility] - OUTPATIENT THORACIC SURGERY CLINIC NOTE PT NAME: [facility] NO: [id number] THORACIC SURGEON: Dr Marianne Fields DATE OF [...] in-situ hybridization tests have been determined by [facility]'s Duncan JJudi [facility] Pathology and Laboratory [facility] [place] ([facility] in a manner consistent with CLIA requirements. One or more of these tests have not been cleared or approved by the FDA. [facility] is regulated under CLIA as qualified [...] f/u 11/20/21 - oncology consult at the [facility] [place] in [place] Aracelis Carrillo APRN.CNP documented in this encounterCleveland Clinic [facility]03-24-2022 History of Present illness Narrative* RT Anabel(R) [...] 11, 2021 3:11 PM documented in this encounterCleveland Clinic South Pointe Hospital11-08-2021 Procedure note* Vanessa Joaquin RT(R) - 05/28/2021 [...] DIAGNOSTIC CT PERFORMED: No IV SITE: Ambulatory: MD only - direct IV injection in the Right antecubital site POST EXAM PIV STATUS: Not applicable PROCEDURE TYPE: NM INJECT: PET/CT BODY SCAN. 9.0 mCi F18 FDG. No other medications given.. ADMINISTRATION TIME: 744 PATIENT DISCHARGED TO: Ambulatory patient, left [place] department area. A Diagnostic radioactive procedure has taken place, with no further precautions necessary other than routine body substance precautions. More information regarding radiation safety can be found usingthis link: [email or web address] SIGNATURE: IGGY Jacome) PATIENT NAME: Cristal Gu DATE: May 28, 2021 TIME: 8:14 AM PAGER/CONTACT #: documented in this encounterCleveland Clinic South Pointe HospitalDischarge summary Author Jair Nichols [facility] March 20, 2024 2:40pm Note Date/Time March 20, 2024 2: 40pm [facility] [address] [place] [address] Discharge Summary Signed Patient: Cristal Gu MR#: [id number] : 1955 Acct:[id number] Age/Sex: 69 / M Adm Date: 4 Loc: Room: [address] [place] [address]: Jair Nichols MD Copies to: NON STAFF Jair Nichols MD~ Providers Date of Discharge: 03/20/24 Discharging Provider: Jair Nichols Primary Care Provider: NON STAFF Consults: 03/19/24 22:06 Consult to Neurology Routine Comment: Consulting Provider: Kapler,Davion M Reason For Exam: Unstable gait, Altered Mental [...] compatible or not. We sent request to [facility]. Being long weekend we did not [...] can be found in the EHR of [facility]. The patient left hospital appropriately in [...] % (Auto) 82.3, Lymph % (Auto) 8.6, [place] % (Auto) 8.7, Eos % (Auto) 0.2, Baso % (Auto) 0.2, Nucleat RBC Rel Count 0.0, Neut # (Auto) 4.8, Lymph # (Auto) 0.5 L, [place] # (Auto) 0.5, Eos # (Auto) 0.0, [...] signed by Jair Nichols MD> 03/20/24 1440 [facility] Work Phone: Evaluation note* Diagnosis Malignant [...] lung (HCC)- Primary [facility]* Diagnosis Acute kidney injury (HCC)- [...] kidney failure, unspecified documented in this encounter [facility]* Diagnosis Malignant neoplasm of upper lobe of left lung (HCC)- Primary Acute kidney injury (HCC) Acute kidney failure, unspecified documented [facility] this encounter [facility]* Diagnosis Malignant neoplasm of upper lobe of left lung (HCC)- Primary documented [facility] encounter [facility]* Diagnosis Malignant neoplasm of upper lobe of left lung (HCC)- Primary documented in this encounter [facility]* Diagnosis Malignant neoplasm of upper lobe of left lung (HCC)- Primary documented in this encounter [facility]* Diagnosis Malignant neoplasm of upper lobe of left lung (HCC)- Primary Acute kidney injury (HCC) Acute kidney failure, unspecified 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 documented in this encounter [facility]* Diagnosis Malignant neoplasm of upper lobe of left lung (HCC)- Primary documented in [facility] encounter [facility]* Diagnosis Malignant neoplasm of upper lobe of left lung (HCC)- Primary 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 Skin infection Unspecified local infection of skin and subcutaneous tissue documented in this encounter [facility]* Diagnosis Malignant neoplasm of upper lobe of left lung (HCC)- Primary 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 documented in this encounter [facility]* Diagnosis Chronic obstructive pulmonary disease, unspecified COPD type (HCC) Lung nodule Solitary pulmonary nodule documented in this encounter [facility]* Diagnosis Chronic obstructive pulmonary disease, unspecified COPD type (HCC) Lung nodule Solitary pulmonary nodule documented in this encounter [facility]* Diagnosis Chronic obstructive pulmonary disease, unspecified COPD type (HCC) Malignant neoplasm of upper lobe of left lung (HCC) PAD (peripheral artery disease) (HCC) Peripheral vascular disease, unspecified documented in this encounter [facility]* Diagnosis Malignant neoplasm of upper lobe of left lung (HCC) documented in this encounter [facility]* Diagnosis Malignant neoplasm of upper lobe [...] in this encounter [facility]* Diagnosis Chronic obstructive pulmonary disease, unspecified COPD type (HCC)- Primary documented in this encounter [facility]* Diagnosis Skin rash- Primary Rash and other nonspecific skin eruption documented in this encounter [facility]* Diagnosis Malignant neoplasm of upper lobe of left lung (HCC)- Primary 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 Skin infection Unspecified local infection of skin and subcutaneous tissue Rash Rash and other nonspecific skin eruption documented [facility]* Diagnosis Malignant neoplasm of upper lobe of left lung (HCC)- Primary documented in this encounter [facility] noteNo assessment information availableHighland District Hospital Work Phone: Evaluation note* Diagnosis Malignant neoplasm of upper lobe of left lung (HCC)- Primary documented in this encounter [facility]* Diagnosis Malignant neoplasm of upper lobe of left lung (HCC)- Primary documented in this encounter [facility]* Diagnosis Malignant neoplasm of upper lobe of left lung (HCC)- Primary documented [facility] this encounter [facility]* Diagnosis Cancer related pain- Primary Neoplasm related pain (acute) (chronic) Malignant neoplasm of unspecified part of unspecified bronchus or lung (HCC) documented in this encounter [facility]* Diagnosis Malignant neoplasm of upper lobe of left lung (HCC)- Primary documented in this encounter [facility]* Diagnosis Malignant neoplasm of upper lobe of left lung (HCC)- Primary documented in this encounter [facility]* Diagnosis Malignant neoplasm of upper lobe of left lung (HCC)- Primary documented [facility] this encounter [facility]* Diagnosis Malignant neoplasm of unspecified part of unspecified bronchus or lung (HCC)- Primary [facility]* Diagnosis Malignant neoplasm of upper lobe of left lung (HCC)- Primary 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 documented [facility] this encounter [facility]* Diagnosis Thyroid cancer (HCC)- Primary [...] severity (HCC) documented in this encounter [facility]* Diagnosis Malignant neoplasm of upper lobe [...] essential hypertension documented in this encounter [facility]* Diagnosis Malignant neoplasm of upper lobe [...] state, unspecified documented in this encounter [facility]* Diagnosis Malignant neoplasm of unspecified part of unspecified bronchus or lung (HCC) documented [facility] encounter [facility]* Diagnosis Malignant neoplasm of upper lobe of left lung (HCC)- Primary documented in this encounter [facility]* Diagnosis 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 Malaise and fatigue Other malaise and fatigue Cancer related pain Neoplasm related pain (acute) (chronic) Anxiety Anxiety state, unspecified Rash Rash and other nonspecific skin eruption documented in this encounter [facility]* Diagnosis Primary malignant neoplasm of left [...] skin eruption documented in this encounter [facility]* Diagnosis 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) documented in this encounter [facility]* Diagnosis Primary malignant neoplasm of left [...] condition classified elsewhere documented in this encounter [facility]* Diagnosis Malignant neoplasm of upper lobe of left lung (HCC)- Primary documented in this encounter [facility]* Diagnosis Malignant neoplasm of upper lobe of left lung (HCC) documented in this encounter [facility]* Diagnosis Oropharyngeal cancer (HCC)- Primary Malignant neoplasm of oropharynx, unspecified site Tonsillar mass Swelling, mass, or lump in head and neck Malignant neoplasm of upper lobe of left lung (HCC) documented [facility]* Diagnosis Oropharnyx cancer (HCC)- Primary documented in this encounter [facility]* Diagnosis Malignant neoplasm of upper lobe of left lung (HCC)- Primary Centrilobular emphysema (HCC) Other emphysema CAD in hopi artery Coronary atherosclerosis of hopi coronary artery PVD (peripheral vascular disease) (HCC) Peripheral vascular disease, unspecified Cancer related pain Neoplasm related pain (acute) (chronic) Tonsillar mass Swelling, mass, or lump in head and neck Abnormal LFTs Other abnormal blood chemistry Anxiety Anxiety state, unspecified Hypothyroidism due to medication documented in this encounter [facility]* Diagnosis Oropharnyx cancer (HCC)- Primary documented in this encounter [facility]* Diagnosis Palliative care by specialist- Primary 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) Cancer related pain Neoplasm related pain (acute) (chronic) Opioid contract exists Encounters for other specified administrative purpose 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 due to medical condition classified elsewhere Anorexia Protein-calorie malnutrition, unspecified severity (HCC) Nausea Nausea alone documented in this encounter [facility]* Diagnosis 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 Tonsillar mass Swelling, mass, or lump in head and neck Primary hypertension Unspecified essential hypertension Centrilobular emphysema (HCC) Other emphysema Coronary artery disease involving hopi coronary artery of hopi heart without angina pectoris Hypothyroidism due to medication Cancer related pain Neoplasm related pain (acute) (chronic) documented in this encounter [facility]* Diagnosis 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 Tonsillar mass Swelling, mass, or lump in head and neck Hypothyroidism due to medication Centrilobular emphysema (HCC) Other emphysema 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) documented in this encounter [facility]* Diagnosis 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 Tonsillar mass Swelling, mass, or lump in head and neck 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) documented in this encounter [facility]* Diagnosis Primary malignant neoplasm of left [...] (HCC) Other emphysema documented [facility]* Diagnosis Primary malignant neoplasm of [...] (HCC)- Primary documented in this encounter [facility]* Diagnosis Malignant neoplasm of upper lobe [...] specified administrative purpose documented [facility] this encounter [facility]* [...] Shortness of breath documented [facility] this [facility]* Diagnosis Chronic obstructive pulmonary disease, [...] finger Cyanosis [facility] Diagnosis 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) [facility] Diagnosis Malignant neoplasm of upper lobe of left lung (HCC)- Primary [facility] Diagnosis 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) [facility]* Diagnosis Abnormal CT scan, neck- Primary Other nonspecific (abnormal) findings on radiological and other examinations of body structure Sore throat Acute pharyngitis [facility] Diagnosis Centrilobular emphysema (HCC)- Primary Other emphysema Malignant neoplasm of upper lobe of left lung (HCC) Coronary artery disease involving hopi coronary artery of hopi heart without angina pectoris PAD (peripheral artery disease) (HCC) Peripheral vascular disease, unspecified Dyspnea on exertion Other dyspnea and respiratory abnormality [facility] Diagnosis Encounter for palliative care- Primary [...] Anxiety state, unspecified [facility]* Diagnosis 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) 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 Chronic obstructive pulmonary disease, unspecified COPD type (HCC) Altered mental status, unspecified altered mental status type [facility] Diagnosis Onset Date Resolution Status Chronic left shoulder pain a cute COPD (chronic obstructive pulmonary disease) acute Debility acute Forgetfulness acute Generalized weakness acute History of lung cancer acute Mass of left lung acute Unsteady gait acute [facility] Work Phone: Evaluation note* Diagnosis 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 Grigsby's office call tomorrow let them know that you were seen in the emergency department Please return here if you develop any chest pain, shortness of breath, numbness, tingling or any other concerns[facility] Work Phone: Hospital Discharge instructions Additional Instructions If your symptoms return/worsen or you develop any further concerns or symptoms please see your doctor or return to the emergency department immediately. As we discussed admission for further management is recommended but you will follow-up with your oncologist and your PCP. You may return to the emergency department should you change her mind.[facility] Work Phone: Hospital Discharge instructions Additional Instructions Call [facility] Central Scheduling on Friday at [phone] to schedule outpatient Brain MRI. The MRI may require prior authorization through your insurance before it can be scheduled, central scheduling will assist with this if it is needed.[facility] Work Phone: Reason for referral (narrative)* Diagnostic Procedure Only (Routine) - Pending Review Specialty Diagnoses / Procedures Referred By Contac t Referred To Contact MOLECULAR & FUNCTIONAL IMAGING Diagnoses Malignant neoplasm of unspecified part of unspecified bronchus or lung (HCC) Procedures NM BONE WHOLE BODY BONE &/JOINT IMAGING WHOLE BODY Hector Limon MD [address] [place] [address] [place] [address] Molecular & Functional Imaging [address] [place] [address] Referral ID Status Reason Start Date Expiration Date Visits Requested Visits Authorized [id number] Pending Review Auto-Generat ed Referral 04/08/2022 05/08/2023 1 1 [facility] for referral (narrative)* Diagnostic Procedure Only (Routine) - Authorized Specialty Diagnoses / Procedures Referred By Contac t Referred To Contact MOLECULAR & FUNCTIONAL IMAGING Diagnoses Lung nodules Procedures NM PET/CT SKULL-THIGH SUBSEQUENT PET IMAGING CT ATTENUATION SKULL BASE MID-THIGH Nina Grigsby MD [address] [place] [address] [place] [address] Molecular & Functional Imaging [address] [place] [address] Referral ID Status Reason Start Date Expiration Date Visits Requested Visits Authorized [id number] Authorized Auto-Generat ed Referral 09/23/2022 10/23/2023 1 1 [facility] for referral (narrative)* Diagnostic Procedure Only (Urgent) - Closed Specialty Diagnoses / Procedures Referred By Contac t Referred To Contact MOLECULAR & FUNCTIONAL IMAGING Diagnoses Malignant neoplasm of unspecified part of unspecified bronchus or lung (HCC) Procedures NM PET/CT WHOLE BODY INITIAL TUMOR IMAG PET W/CONCURNT CT-WHOLE BODY Marianne Fields MD [address] [facility] [address] [place] [address] Molecular & Functional Imaging [address] [place] [address] Referral ID Status Reason Start Date Expiration Date V isits Requested Visits Authorized [id number] Closed Clearance Not Met - Admin/Chairm an/Director Advise to Postpone/Res chedule or Not Proceed 05/14/2021 06/13/2021 2 2 [facility] for referral (narrative)* Diagnostic Procedure Only (Routine) - Authorized Specialty Diagnoses / Procedures [facility] To Contact MOLECULAR & FUNCTIONAL IMAGING Diagnoses 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) Procedures NM PET/CT SKULL-THIGH SUBSEQUENT PET IMAGING CT ATTENUATION SKULL BASE MID-THIGH Nina Grigsby MD [address] [place] [address] [place] [address] Molecular & Functional Imaging [address] [place] [address] Referral ID Status Reason Start Date Expiration Date Visits Requested Visits Authorized [id number] Authorized Auto-Generat ed Referral 08/25/2023 09/23/2024 1 1 [facility] for referral (narrative)* Diagnostic Procedure Only (Routine) - Authorized Specialty Diagnoses / Procedures Referred By Contac t Referred To Contact MOLECULAR & FUNCTIONAL IMAGING Diagnoses 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) Procedures NM PET/CT SKULL-THIGH SUBSEQUENT PET IMAGING CT ATTENUATION SKULL BASE MID-THIGH Nina Grigsby MD [address] [place] [address] [place] [address] Molecular & Functional Imaging [address] [place] [address] Referral ID Status Reason Start Date Expiration Date Visits Requested Visits Authorized [id number] Authorized Auto-Generat ed Referral 11/04/2023 12/03/2024 1 1 [facility] for referral (narrative)* Diagnostic Procedure Only (Routine) - Authorized Specialty Diagnoses / Procedures Referred By Contac t Referred To Contact MOLECULAR & FUNCTIONAL IMAGING Diagnoses 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 Swelling of arm Cancer associated pain Procedures NM PET/CT SKULL-THIGH SUBSEQUENT PET IMAGING CT ATTENUATION SKULL BASE MID-THIGH Yusef Pandya PA-C [address] [place] [address] [address] [place] [id number] Molecular & Functional Imaging [address] [place] [address] Referral ID Status Reason Start Date Expiration Date Visits Requested Visits Authorized [id number] Authorized Auto-Generat ed Referral 02/03/2024 03/04/2025 1 1 * Diagnostic Procedure Only (Urgent) - New Request Specialty Diagnoses / Procedures Referred By Contac t Referred To Contact US IMAGING Diagnoses 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) Swelling of arm Procedures US DVT UPPER LEFT DUP-SCAN XTR VEINS UNILATERAL/LIMITED STUDY Yusef Pandya PA-C [address] [place] [address] [place] [address] [facility] [place] [address] Referral ID Status Reason Start Date Expiration Date Visits Requested Visits Authorized [id number] New Request Auto-Generat ed Referral 02/03/2024 03/04/2025 1 1 [facility] for referral (narrative)* Outpatient Procedure (Routine) - Authorized Specialty Diagnoses / Procedures Referred By Contac t Referred To Contact [facility] Diagnoses Centrilobular emphysema (HCC) Dyspnea on exertion Procedures LUNG DIFFUSION CAPACITY (DLCO) [place] [address] [place] [address] [address] Referral ID Status Reason Start Date Expiration Date Visits Requested Visits Authorized [id number] Authorized Auto-Generat ed Referral 03/15/2024 04/14/2025 1 1 * Outpatient Procedure (Routine) - Authorized Specialty Diagnoses / Procedures Referred By Contac t Referred To Contact [facility] Diagnoses Centrilobular emphysema (HCC) Dyspnea on exertion Procedures SPIROMETRY WITH DILATOR IF OBSTRUCTED BRNCDILAT RSPSE SPMTRY PRE&[place] [address] [place] [address] [address] Referral ID Status Reason Start Date Expiration Date Visits Requested Visits Authorized [id number] Authorized Auto-Generat ed Referral 03/15/2024 04/14/2025 1 1 [facility] for referral (narrative)* Diagnostic Procedure Only (Routine) - Closed Specialty Diagnoses / Procedures Referred By Contac t Referred To Contact MOLECULAR & FUNCTIONAL IMAGING Diagnoses 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 Swelling of arm Cancer associated pain Procedures NM PET/CT SKULL-THIGH SUBSEQUENT PET IMAGING CT ATTENUATION SKULL BASE MID-THIGH Yusef Pandya PA-C [address] [place] [address] [place] [address] Molecular & Functional Imaging [address] [place] [address] Referral ID Status Reason Start Date Expiration Date V isits Requested Visits Authorized [id number] Closed Auto-Generate d Referral 02/03/2024 03/04/2025 1 1 [facility] for visit Narrative* Diagnostic Procedure Only (Urgent) - Closed Specialty Diagnoses / Procedures Referred By Ap arteaga Referred To Contact MOLECULAR & FUNCTIONAL IMAGING Diagnoses Malignant neoplasm of unspecified part of unspecified bronchus or lung (HCC) Procedures NM PET/CT WHOLE BODY INITIAL TUMOR IMAG PET W/CONCURNT CT-WHOLE BODY Marianne Fields MD [address] [place] [address] Molecular & Functional Imaging [address] [place] [address] Referral ID Status Reason Start Date Expiration Date V isits Requested Visits Authorized [id number] Closed Clearance Not Met - Admin/Chairm an/Director Advise to Postpone/Res chedule or Not Proceed 05/14/2021 06/13/2021 2 2 [facility] Summary Purpose Family History Relationship Condition Age at Onset Recorded Date/T jackeline father Heart problem Unknown Malignant neoplasm of lung Unknown Advance Directives Documents on File Type Date Recorded 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 Advance Directive(s) 09/03/2021 12:55 PM Advance Directive(s) 07/10/2021 11:36 AM Documents on File Type Date Recorded 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 Advance Directive(s) 09/03/2021 12:55 PM Advance Directive(s) 07/10/2021 11:36 AM Advance Directive Response Recorded Date/ Time Advance Directives No May 11:17am Reason for Referral Specialty Diagnoses / Procedures Referred By Ap arteaga Referred To Contact Oncology Diagnoses Malignant neoplasm of upper lobe of left lung (HCC) Procedures CONSULT TO ONCOLOGY OFFICE/OUTPATIENT NEW HIGH MDM 60-74 MINUTES Aracelis Carrillo, OZZIE.RONAL [address] [place] [address] Referral ID Status Reason Start Date Expiration Date Visits Requested Visits Authorized [id number] Authorized PCP Requested Referral 10/11/2021 10/11/2022 1 1 Specialty Diagnoses / Procedures Referred By Contac t Referred To Contact Oncology Diagnoses Malignant neoplasm of upper lobe of left lung (HCC) Procedures CONSULT TO ONCOLOGY OFFICE/OUTPATIENT [facility] 60-74 MINUTES Renetta Ponce MD [address] [place] [address] Referral ID Status Reason Start Date Expiration Date V isits Requested Visits Authorized [id number] Closed PCP Requested Referral 10/26/2021 10/19/2022 1 1 Specialty Diagnoses / Procedures Referred By Contac t Referred To Contact MR IMAGING Diagnoses Malignant neoplasm of upper lobe of left lung (HCC) Procedures MRI BRAIN WO/W IVCON MRI BRAIN BRAIN STEM W/O W/CONTRAST MATERIAL Renetta Ponce MD [address] [place] [address] Mr Imaging Referral ID Status Reason Start Date Expiration Date Visits Requested Visits Authorized [id number] Authorized Auto-Generat ed Referral 10/26/2021 11/18/2021 1 1 Specialty Diagnoses / Procedures Referred By Contac t Referred To Contact Dermatology Diagnoses Skin rash Procedures CONSULT TO DERMATOLOGY OFFICE/OUTPATIENT [facility] 60-74 MINUTES Patricia Miller APRN.CNP [address] [place] [address] [place] [address] Referral ID Status Reason Start Date Expiration Date Visits Requested Visits Authorized [id number] Authorized PCP Requested Referral 02/26/2022 02/26/2023 1 1 Specialty Diagnoses / Procedures Referred By Contac t Referred To Contact CT IMAGING Diagnoses Malignant neoplasm of unspecified part of unspecified bronchus or lung (HCC) Procedures CT CHEST W IVCON DIAGNOSTIC COMPUTED TOMOGRAPHY THORAX W/CONTRAST Hector Limon MD [address] [facility] [place] [address] Ct Imaging Referral ID Status Reason Start Date Expiration Date V isits Requested Visits Authorized [id number] Closed Auto-Generate d Referral 06/11/2022 07/11/2023 1 1 Specialty Diagnoses / Procedures Referred By Contac t Referred To Contact CT IMAGING Diagnoses Malignant neoplasm of unspecified part of unspecified bronchus or lung (HCC) Procedures CT CHEST W IVCON DIAGNOSTIC COMPUTED TOMOGRAPHY THORAX W/CONTRAST Nina Grigsby MD [address] [facility] [place] [address] Ct Imaging Referral ID Status Reason Start Date Expiration Date Visits Requested Visits Authorized [id number] Pending Review Auto-Generat ed Referral 08/20/2022 09/19/2023 1 1 Specialty Diagnoses / Procedures Referred By Contac t Referred To Contact CT IMAGING Diagnoses Malignant neoplasm of upper lobe of left lung (HCC) Procedures CT ABD/PEL W IVCON CT ABD & PELVIS W/CONTRAST Nina Grigsby MD [address] [facility] [place] [address] Ct Imaging Referral ID Status Reason Start Date Expiration Date Visits Requested Visits Authorized [id number] Pending Review Auto-Generat ed Referral 08/20/2022 09/19/2023 1 1 Specialty Diagnoses / Procedures Referred By Contac t Referred To Contact Diagnoses Malignant neoplasm of unspecified part of unspecified bronchus or lung (HCC) Procedures CT SIM PLANNING RADIATION ONCOLOGY THER RAD SIMULAJ-AIDED FIELD SETTING COMPLEX Hector Limon MD [address] [place] [address] [place] [address] Referral ID Status Reason Start Date Expiration Date Visits Requested Visits Authorized [id number] Pending Review PCP Requested Referral 10/21/2022 01/19/2023 1 1 Specialty Diagnoses / Procedures Referred By Contac t Referred To Contact Diagnoses 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 [place] [address] Referral ID Status Reason Start Date Expiration Date Visits Requested Visits Authorized [id number] Authorized PCP Requested Referral 05/14/2024 1 1 Specialty Diagnoses / Procedures Referred By Contac t Referred To Contact MR IMAGING Diagnoses Malignant neoplasm of upper lobe of left lung (HCC) Procedures MRI BRAIN WO/W IVCON MRI BRAIN BRAIN STEM W/O W/CONTRAST MATERIAL Renetta Ponce MD [address] [place] [address] Mr Imaging [facility] Referral ID Status Reason Start Date Expiration Date V isits Requested Visits Authorized [id number] Closed Auto-Generate d Referral 10/26/2021 11/18/2021 1 1 Specialty Diagnoses / Procedures Referred By Contac t Referred To Contact Diagnoses Oropharnyx cancer (HCC) Procedures CT SIM PLANNING RADIATION ONCOLOGY THER RAD SIMULAJ-AIDED FIELD SETTING COMPLEX Hector Limon MD [address] [place] [address] [place] [address] Referral ID Status Reason Start Date Expiration Date Visits Requested Visits Authorized [id number] Pending Review PCP Requested Referral 3 09/08/2023 1 1 Specialty Diagnoses / Procedures Referred By Contac t Referred To Contact CT IMAGING Diagnoses 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) Procedures CT CHEST W IVCON DIAGNOSTIC COMPUTED TOMOGRAPHY THORAX W/CONTRAST Nina Grigsby MD [address] [place] [address] [place] [address] Ct Imaging [place] [address] Referral ID Status Reason Start Date Expiration Date V isits Requested Visits Authorized [id number] Closed Auto-Generate d Referral 10/20/2023 11/18/2024 1 1 Specialty Diagnoses / Procedures Referred By Contac t Referred To Contact [facility] Diagnoses Chronic left shoulder pain Procedures CONSULT TO PHYSICAL THERAPY PHYSICAL THERAPY EVALUATION HIGH COMPLEX 45 MINS Estella Fish, BRASS CUTTER.ELDERLY CAREGIVER [address] [place] [address] [facility] [place] [address] [place] [address] Referral ID Status Reason Start Date Expiration Date Visits Requested Visits Authorized [id number] Pending Review Auto-Generat ed Referral 11/21/2023 11/20/2024 1 1 Specialty Diagnoses / Procedures Referred By Contac t Referred To Contact RADIATION ONCOLOGY Diagnoses Malignant neoplasm of upper lobe of left lung (HCC) 15 FX plus sim IMRT Procedures CT SIM PLANNING RADIATION ONCOLOGY THER RAD SIMULAJ-AIDED FIELD SETTING COMPLEX INTENSITY MODULATED RADIATION TX DLVR COMPLEX 15 FX plus sim IMRT Hector Limon MD [address] [facility] [place] [address] [address] [facility] [place] [address] Referral ID Status Reason Start Date Expiration Date Visits Requested Visits Authorized [id number] Authorized PCP Requested Referral 12/03/2023 06/03/2024 16 16 Specialty Diagnoses / Procedures Referred By Contac t Referred To Contact Vascular Surgery Diagnoses Left arm swelling Cyanosis of tip of finger Procedures CONSULT TO VASCULAR SURGERY OFFICE/OUTPATIENT [facility] 60 MINUTES Yusef Pandya PA-C [address] [facility] [place] [address] Referral ID Status Reason Start Date Expiration Date Visits Requested Visits Authorized [id number] Authorized PCP Requested Referral 02/04/2024 02/03/2025 1 1 Specialty Diagnoses / Procedures Referred By Contac t Referred To Contact Ent - Otolaryngology Diagnoses Abnormal CT scan, neck Sore throat Procedures CONSULT TO ENT OFFICE/OUTPATIENT [facility] 60 MINUTES Yusef Pandya PA-C [address] [facility] [place] [address] Referral ID Status Reason Start Date Expiration Date Visits Requested Visits Authorized [id number] Authorized PCP Requested Referral 02/24/2024 02/23/2025 1 1 Medications Administered Section Inactive Administered Medications - up to 3 most recent administrations Medication Order MAR Action Action Date Dose Rate Site cyanocobalamin 1,000 mcg injection 1,000 mcg, INTRAMUSCULAR, ONCE, 1 dose, On 10/29/21 at 1030 Given 10/29/2021 10:51 AM EDT [...] Use appropriate PPE. Antineoplastic Irritant. New Bag/Syringe/Tiana mallika 12/24/2021 11:53 AM EDT 475.5 mg cyanocobalamin 1,000 mcg injection 1,000 mcg, INTRAMUSCULAR, ONCE, 1 dose, On Fri12/24/21 at 1100 Given 12/24/2021 10:53 AM EDT 1,000 mcg Deltoid, Left dexAMETHasone 10 mg/NS 50 mL (PYXIS) 10 mg ivpb (DECADRON) 10 mg, INTRAVENOUS, ONCE, 1 dose, On Fri12/24/21 at 1100, Refrigerate. New Bag/Syringe/Tiana mallika 12/24/2021 10:53 AM EDT 10 mg palonosetron [...] Complaint SOB back/neck pain sent by dr rodirguez cancer Needs more testing Reason for Visit [...] and content) DATE CREATED AUTHOR 02/22/2020 [facility] DATE CREATED AUTHOR AUTHOR'S ORGANIZ ATION 10/14/2022 [facility] DATE CREATED AUTHOR AUTHOR'S ORGANIZ ATION 10/25/2022 [facility] DATE CREATED AUTHOR AUTHOR'S ORGANIZ ATION 01/18/2023 [facility] DATE CREATED AUTHOR AUTHOR'S ORGANIZ ATION 03/18/2024 [facility] DATE CREATED AUTHOR AUTHOR'S ORGANIZ ATION 03/23/2024 [facility] DATE CREATED AUTHOR AUTHOR'S ORGANIZ ATION 03/28/2024 [facility] Source Comments (unrecognize d section and content) In the event this informatio n is protected by the Federal Confidentiality of Alcohol and Drug Abuse Patient Records regulations: The Federal rules restrict any use of the information to criminally investigate or prosecute any alcohol or drug abuse patient.[facility] the event this information is protected by the Federal Confidentiality of Alcohol and Drug Abuse Patient Records regulations: The Federal rules restrict any use of the information to criminally investigate or prosecute any alcohol or drug abuse patient.[facility] the event this information is protected by the Federal Confidentiality of Alcohol and Drug Abuse Patient Records regulations: The Federal rules restrict any use of the information to criminally investigate or prosecute any alcohol or drug abuse patient.[facility] the event this information is protected by the Federal Confidentiality of Alcohol and Drug Abuse Patient Records regulations: The Federal rules restrict any use of the information to criminally investigate or prosecute any alcohol or drug abuse patient.[facility] the event this information is protected by the Federal Confidentiality of Alcohol and Drug Abuse Patient Records regulations: The Federal rules restrict any use of the information to criminally investigate or prosecute any alcohol or drug abuse patient.[facility] Hospital[facility] the event this information is protected by the Federal Confidentiality of Alcohol and Drug Abuse Patient Records regulations: The Federal rules restrict any use of the information to criminally investigate or prosecute any alcohol or drug abuse patient.[facility] Hospital[facility] the event this information is protected by the Federal Confidentiality of Alcohol and Drug Abuse Patient Records regulations: The Federal rules restrict any use of the information to criminally investigate or prosecute any alcohol or drug abuse patient.[facility] Hospital[facility] the event this information is protected by the Federal Confidentiality of Alcohol and Drug Abuse Patient Records regulations: The Federal rules restrict any use of the information to criminally investigate or prosecute any alcohol or drug abuse patient.[facility] Hospital[facility] the event this information is protected by the Federal Confidentiality of Alcohol and Drug Abuse Patient Records regulations: The Federal rules restrict any use of the information to criminally investigate or prosecute any alcohol or drug abuse patient.[facility] Hospital[facility] the event this information is protected by the Federal Confidentiality of Alcohol and Drug Abuse Patient Records regulations: The Federal rules restrict any use of the information to criminally investigate or prosecute any alcohol or drug abuse patient.[facility] Hospital[facility] the event this information is protected by the Federal Confidentiality of Alcohol and Drug Abuse Patient Records regulations: The Federal rules restrict any use of the information to criminally investigate or prosecute any alcohol or drug abuse patient.[facility] HospitalIn the event this information is protected by the Federal Confidentiality of Alcohol and Drug Abuse Patient Records regulations: The Federal rules restrict any use of the information to criminally investigate or prosecute any alcohol or drug abuse patient.[facility] HospitalIn the event this information is protected by the Federal Confidentiality of Alcohol and Drug Abuse Patient Records regulations: The Federal rules restrict any use of the information to criminally investigate or prosecute any alcohol or drug abuse patient.[facility] HospitalIn the event this information is protected by the Federal Confidentiality of Alcohol and Drug Abuse Patient Records regulations: The Federal rules restrict any use of the information to criminally investigate or prosecute any alcohol or drug abuse patient.[facility] HospitalIn the event this information is protected by the Federal Confidentiality of Alcohol and Drug Abuse Patient Records regulations: The Federal rules restrict any use of the information to criminally investigate or prosecute any alcohol or drug abuse patient.[facility] HospitalIn the event this information is protected by the Federal Confidentiality of Alcohol and Drug Abuse Patient Records regulations: The Federal rules restrict any use of the information to criminally investigate or prosecute any alcohol or drug abuse patient.[facility] HospitalIn the event this information is protected by the Federal Confidentiality of Alcohol and Drug Abuse Patient Records regulations: The Federal rules restrict any use of the information to criminally investigate or prosecute any alcohol or drug abuse patient.[facility] HospitalIn the event this information is protected by the Federal Confidentiality of Alcohol and Drug Abuse Patient Records regulations: The Federal rules restrict any use of the information to criminally investigate or prosecute any alcohol or drug abuse patient.[facility] HospitalIn the event this information is protected by the Federal Confidentiality of Alcohol and Drug Abuse Patient Records regulations: The Federal rules restrict any use of the information to criminally investigate or prosecute any alcohol or drug abuse patient.[facility] HospitalIn the event this information is protected by the Federal Confidentiality of Alcohol and Drug Abuse Patient Records regulations: The Federal rules restrict any use of the information to criminally investigate or prosecute any alcohol or drug abuse patient.[facility] HospitalIn the event this information is protected by the Federal Confidentiality of Alcohol and Drug Abuse Patient Records regulations: The Federal rules restrict any use of the information to criminally investigate or prosecute any alcohol or drug abuse patient.[facility] HospitalIn the event this information is protected by the Federal Confidentiality of Alcohol and Drug Abuse Patient Records regulations: The Federal rules restrict any use of the information to criminally investigate or prosecute any alcohol or drug abuse patient.[facility] HospitalIn the event this information is protected by the Federal Confidentiality of Alcohol and Drug Abuse Patient Records regulations: The Federal rules restrict any use of the information to criminally investigate or prosecute any alcohol or drug abuse patient.[facility] HospitalIn the event this information is protected by the Federal Confidentiality of Alcohol and Drug Abuse Patient Records regulations: The Federal rules restrict any use of the information to criminally investigate or prosecute any alcohol or drug abuse patient.[facility] HospitalIn the event this information is protected by the Federal Confidentiality of Alcohol and Drug Abuse Patient Records regulations: The Federal rules restrict any use of the information to criminally investigate or prosecute any alcohol or drug abuse patient.[facility] HospitalIn the event this information is protected by the Federal Confidentiality of Alcohol and Drug Abuse Patient Records regulations: The Federal rules restrict any use of the information to criminally investigate or prosecute any alcohol or drug abuse patient.[facility] HospitalIn the event this information is protected by the Federal Confidentiality of Alcohol and Drug Abuse Patient Records regulations: The Federal rules restrict any use of the information to criminally investigate or prosecute any alcohol or drug abuse patient.[facility] HospitalIn the event this information is protected by the Federal Confidentiality of Alcohol and Drug Abuse Patient Records regulations: The Federal rules restrict any use of the information to criminally investigate or prosecute any alcohol or drug abuse patient.[facility] HospitalIn the event this information is protected by the Federal Confidentiality of Alcohol and Drug Abuse Patient Records regulations: The Federal rules restrict any use of the information to criminally investigate or prosecute any alcohol or drug abuse patient.[facility] HospitalIn the event this information is protected by the Federal Confidentiality of Alcohol and Drug Abuse Patient Records regulations: The Federal rules restrict any use of the information to criminally investigate or prosecute any alcohol or drug abuse patient.[facility] HospitalIn the event this information is protected by the Federal Confidentiality of Alcohol and Drug Abuse Patient Records regulations: The Federal rules restrict any use of the information to criminally investigate or prosecute any alcohol or drug abuse patient.[facility] HospitalIn the event this information is protected by the Federal Confidentiality of Alcohol and Drug Abuse Patient Records regulations: The Federal rules restrict any use of the information to criminally investigate or prosecute any alcohol or drug abuse patient.[facility] HospitalIn the event this information is protected by the Federal Confidentiality of Alcohol and Drug Abuse Patient Records regulations: The Federal rules restrict any use of the information to criminally investigate or prosecute any alcohol or drug abuse patient.[facility] HospitalIn the event this information is protected by the Federal Confidentiality of Alcohol and Drug Abuse Patient Records regulations: The Federal rules restrict any use of the information to criminally investigate or prosecute any alcohol or drug abuse patient.[facility] HospitalIn the event this information is protected by the Federal Confidentiality of Alcohol and Drug Abuse Patient Records regulations: The Federal rules restrict any use of the information to criminally investigate or prosecute any alcohol or drug abuse patient.[facility] HospitalIn the event this information is protected by the Federal Confidentiality of Alcohol and Drug Abuse Patient Records regulations: The Federal rules restrict any use of the information to criminally investigate or prosecute any alcohol or drug abuse patient.[facility] HospitalIn the event this information is protected by the Federal Confidentiality of Alcohol and Drug Abuse Patient Records regulations: The Federal rules restrict any use of the information to criminally investigate or prosecute any alcohol or drug abuse patient.[facility] HospitalIn the event this information is protected by the Federal Confidentiality of Alcohol and Drug Abuse Patient Records regulations: The Federal rules restrict any use of the information to criminally investigate or prosecute any alcohol or drug abuse patient.[facility] HospitalIn the event this information is protected by the Federal Confidentiality of Alcohol and Drug Abuse Patient Records regulations: The Federal rules restrict any use of the information to criminally investigate or prosecute any alcohol or drug abuse patient.[facility] HospitalIn the event this information is protected by the Federal Confidentiality of Alcohol and Drug Abuse Patient Records regulations: The Federal rules restrict any use of the information to criminally investigate or prosecute any alcohol or drug abuse patient.[facility] HospitalIn the event this information is protected by the Federal Confidentiality of Alcohol and Drug Abuse Patient Records regulations: The Federal rules restrict any use of the information to criminally investigate or prosecute any alcohol or drug abuse patient.[facility] HospitalIn the event this information is protected by the Federal Confidentiality of Alcohol and Drug Abuse Patient Records regulations: The Federal rules restrict any use of the information to criminally investigate or prosecute any alcohol or drug abuse patient.[facility] HospitalIn the event this information is protected by the Federal Confidentiality of Alcohol and Drug Abuse Patient Records regulations: The Federal rules restrict any use of the information to criminally investigate or prosecute any alcohol or drug abuse patient.[facility] HospitalIn the event this information is protected by the Federal Confidentiality of Alcohol and Drug Abuse Patient Records regulations: The Federal rules restrict any use of the information to criminally investigate or prosecute any alcohol or drug abuse patient.[facility] HospitalIn the event this information is protected by the Federal Confidentiality of Alcohol and Drug Abuse Patient Records regulations: The Federal rules restrict any use of the information to criminally investigate or prosecute any alcohol or drug abuse patient.[facility] HospitalIn the event this information is protected by the Federal Confidentiality of Alcohol and Drug Abuse Patient Records regulations: The Federal rules restrict any use of the information to criminally investigate or prosecute any alcohol or drug abuse patient.[facility] HospitalIn the event this information is protected by the Federal Confidentiality of Alcohol and Drug Abuse Patient Records regulations: The Federal rules restrict any use of the information to criminally investigate or prosecute any alcohol or drug abuse patient.[facility] HospitalIn the event this information is protected by the Federal Confidentiality of Alcohol and Drug Abuse Patient Records regulations: The Federal rules restrict any use of the information to criminally investigate or prosecute any alcohol or drug abuse patient.[facility] HospitalIn the event this information is protected by the Federal Confidentiality of Alcohol and Drug Abuse Patient Records regulations: The Federal rules restrict any use of the information to criminally investigate or prosecute any alcohol or drug abuse patient.[facility] HospitalIn the event this information is protected by the Federal Confidentiality of Alcohol and Drug Abuse Patient Records regulations: The Federal rules restrict any use of the information to criminally investigate or prosecute any alcohol or drug abuse patient.[facility] HospitalIn the event this information is protected by the Federal Confidentiality of Alcohol and Drug Abuse Patient Records regulations: The Federal rules restrict any use of the information to criminally investigate or prosecute any alcohol or drug abuse patient.[facility] HospitalIn the event this information is protected by the Federal Confidentiality of Alcohol and Drug Abuse Patient Records regulations: The Federal rules restrict any use of the information to criminally investigate or prosecute any alcohol or drug abuse patient.[facility] HospitalIn the event this information is protected by the Federal Confidentiality of Alcohol and Drug Abuse Patient Records regulations: The Federal rules restrict any use of the information to criminally investigate or prosecute any alcohol or drug abuse patient.[facility] HospitalIn the event this information is protected by the Federal Confidentiality of Alcohol and Drug Abuse Patient Records regulations: The Federal rules restrict any use of the information to criminally investigate or prosecute any alcohol or drug abuse patient.[facility] HospitalIn the event this information is protected by the Federal Confidentiality of Alcohol and Drug Abuse Patient Records regulations: The Federal rules restrict any use of the information to criminally investigate or prosecute any alcohol or drug abuse patient.[facility] HospitalIn the event this information is protected by the Federal Confidentiality of Alcohol and Drug Abuse Patient Records regulations: The Federal rules restrict any use of the information to criminally investigate or prosecute any alcohol or drug abuse patient.[facility] HospitalIn the event this information is protected by the Federal Confidentiality of Alcohol and Drug Abuse Patient Records regulations: The Federal rules restrict any use of the information to criminally investigate or prosecute any alcohol or drug abuse patient.[facility] HospitalIn the event this information is protected by the Federal Confidentiality of Alcohol and Drug Abuse Patient Records regulations: The Federal rules restrict any use of the information to criminally investigate or prosecute any alcohol or drug abuse patient.[facility] HospitalIn the event this information is protected by the Federal Confidentiality of Alcohol and Drug Abuse Patient Records regulations: The Federal rules restrict any use of the information to criminally investigate or prosecute any alcohol or drug abuse patient.[facility] HospitalIn the event this information is protected by the Federal Confidentiality of Alcohol and Drug Abuse Patient Records regulations: The Federal rules restrict any use of the information to criminally investigate or prosecute any alcohol or drug abuse patient.[facility] HospitalIn the event this information is protected by the Federal Confidentiality of Alcohol and Drug Abuse Patient Records regulations: The Federal rules restrict any use of the information to criminally investigate or prosecute any alcohol or drug abuse patient.[facility] HospitalIn the event this information is protected by the Federal Confidentiality of Alcohol and Drug Abuse Patient Records regulations: The Federal rules restrict any use of the information to criminally investigate or prosecute any alcohol or drug abuse patient.[facility] HospitalIn the event this information is protected by the Federal Confidentiality of Alcohol and Drug Abuse Patient Records regulations: The Federal rules restrict any use of the information to criminally investigate or prosecute any alcohol or drug abuse patient.[facility] HospitalIn the event this information is protected by the Federal Confidentiality of Alcohol and Drug Abuse Patient Records regulations: The Federal rules restrict any use of the information to criminally investigate or prosecute any alcohol or drug abuse patient.[facility] HospitalIn the event this information is protected by the Federal Confidentiality of Alcohol and Drug Abuse Patient Records regulations: The Federal rules restrict any use of the information to criminally investigate or prosecute any alcohol or drug abuse patient.[facility] HospitalIn the event this information is protected by the Federal Confidentiality of Alcohol and Drug Abuse Patient Records regulations: The Federal rules restrict any use of the information to criminally investigate or prosecute any alcohol or drug abuse patient.[facility] HospitalIn the event this information is protected by the Federal Confidentiality of Alcohol and Drug Abuse Patient Records regulations: The Federal rules restrict any use of the information to criminally investigate or prosecute any alcohol or drug abuse patient.[facility] HospitalIn the event this information is protected by the Federal Confidentiality of Alcohol and Drug Abuse Patient Records regulations: The Federal rules restrict any use of the information to criminally investigate or prosecute any alcohol or drug abuse patient.[facility] HospitalIn the event this information is protected by the Federal Confidentiality of Alcohol and Drug Abuse Patient Records regulations: The Federal rules restrict any use of the information to criminally investigate or prosecute any alcohol or drug abuse patient.[facility] HospitalIn the event this information is protected by the Federal Confidentiality of Alcohol and Drug Abuse Patient Records regulations: The Federal rules restrict any use of the information to criminally investigate or prosecute any alcohol or drug abuse patient.[facility] HospitalIn the event this information is protected by the Federal Confidentiality of Alcohol and Drug Abuse Patient Records regulations: The Federal rules restrict any use of the information to criminally investigate or prosecute any alcohol or drug abuse patient.[facility] HospitalIn the event this information is protected by the Federal Confidentiality of Alcohol and Drug Abuse Patient Records regulations: The Federal rules restrict any use of the information to criminally investigate or prosecute any alcohol or drug abuse patient.[facility] HospitalIn the event this information is protected by the Federal Confidentiality of Alcohol and Drug Abuse Patient Records regulations: The Federal rules restrict any use of the information to criminally investigate or prosecute any alcohol or drug abuse patient.[facility] HospitalIn the event this information is protected by the Federal Confidentiality of Alcohol and Drug Abuse Patient Records regulations: The Federal rules restrict any use of the information to criminally investigate or prosecute any alcohol or drug abuse patient.[facility] HospitalIn the event this information is protected by the Federal Confidentiality of Alcohol and Drug Abuse Patient Records regulations: The Federal rules restrict any use of the information to criminally investigate or prosecute any alcohol or drug abuse patient.[facility] HospitalIn the event this information is protected by the Federal Confidentiality of Alcohol and Drug Abuse Patient Records regulations: The Federal rules restrict any use of the information to criminally investigate or prosecute any alcohol or drug abuse patient.[facility] HospitalIn the event this information is protected by the Federal Confidentiality of Alcohol and Drug Abuse Patient Records regulations: The Federal rules restrict any use of the information to criminally investigate or prosecute any alcohol or drug abuse patient.[facility] HospitalIn the event this information is protected by the Federal Confidentiality of Alcohol and Drug Abuse Patient Records regulations: The Federal rules restrict any use of the information to criminally investigate or prosecute any alcohol or drug abuse patient.[facility] HospitalIn the event this information is protected by the Federal Confidentiality of Alcohol and Drug Abuse Patient Records regulations: The Federal rules restrict any use of the information to criminally investigate or prosecute any alcohol or drug abuse patient.[facility] HospitalIn the event this information is protected by the Federal Confidentiality of Alcohol and Drug Abuse Patient Records regulations: The Federal rules restrict any use of the information to criminally investigate or prosecute any alcohol or drug abuse patient.[facility] HospitalIn the event this information is protected by the Federal Confidentiality of Alcohol and Drug Abuse Patient Records regulations: The Federal rules restrict any use of the information to criminally investigate or prosecute any alcohol or drug abuse patient.[facility] HospitalIn the event this information is protected by the Federal Confidentiality of Alcohol and Drug Abuse Patient Records regulations: The Federal rules restrict any use of the information to criminally investigate or prosecute any alcohol or drug abuse patient.[facility] HospitalIn the event this information is protected by the Federal Confidentiality of Alcohol and Drug Abuse Patient Records regulations: The Federal rules restrict any use of the information to criminally investigate or prosecute any alcohol or drug abuse patient.[facility] HospitalIn the event this information is protected by the Federal Confidentiality of Alcohol and Drug Abuse Patient Records regulations: The Federal rules restrict any use of the information to criminally investigate or prosecute any alcohol or drug abuse patient.[facility] HospitalIn the event this information is protected by the Federal Confidentiality of Alcohol and Drug Abuse Patient Records regulations: The Federal rules restrict any use of the information to criminally investigate or prosecute any alcohol or drug abuse patient.[facility] HospitalIn the event this information is protected by the Federal Confidentiality of Alcohol and Drug Abuse Patient Records regulations: The Federal rules restrict any use of the information to criminally investigate or prosecute any alcohol or drug abuse patient.[facility] HospitalIn the event this information is protected by the Federal Confidentiality of Alcohol and Drug Abuse Patient Records regulations: The Federal rules restrict any use of the information to criminally investigate or prosecute any alcohol or drug abuse patient.[facility] HospitalIn the event this information is protected by the Federal Confidentiality of Alcohol and Drug Abuse Patient Records regulations: The Federal rules restrict any use of the information to criminally investigate or prosecute any alcohol or drug abuse patient.[facility] HospitalIn the event this information is protected by the Federal Confidentiality of Alcohol and Drug Abuse Patient Records regulations: The Federal rules restrict any use of the information to criminally investigate or prosecute any alcohol or drug abuse patient.[facility] HospitalIn the event this information is protected by the Federal Confidentiality of Alcohol and Drug Abuse Patient Records regulations: The Federal rules restrict any use of the information to criminally investigate or prosecute any alcohol or drug abuse patient.[facility] HospitalIn the event this information is protected by the Federal Confidentiality of Alcohol and Drug Abuse Patient Records regulations: The Federal rules restrict any use of the information to criminally investigate or prosecute any alcohol or drug abuse patient.[facility] HospitalIn the event this information is protected by the Federal Confidentiality of Alcohol and Drug Abuse Patient Records regulations: The Federal rules restrict any use of the information to criminally investigate or prosecute any alcohol or drug abuse patient.[facility] HospitalIn the event this information is protected by the Federal Confidentiality of Alcohol and Drug Abuse Patient Records regulations: The Federal rules restrict any use of the information to criminally investigate or prosecute any alcohol or drug abuse patient.[facility] HospitalIn the event this information is protected by the Federal Confidentiality of Alcohol and Drug Abuse Patient Records regulations: The Federal rules restrict any use of the information to criminally investigate or prosecute any alcohol or drug abuse patient.[facility] HospitalIn the event this information is protected by the Federal Confidentiality of Alcohol and Drug Abuse Patient Records regulations: The Federal rules restrict any use of the information to criminally investigate or prosecute any alcohol or drug abuse patient.[facility] HospitalIn the event this information is protected by the Federal Confidentiality of Alcohol and Drug Abuse Patient Records regulations: The Federal rules restrict any use of the information to criminally investigate or prosecute any alcohol or drug abuse patient.[facility] HospitalIn the event this information is protected by the Federal Confidentiality of Alcohol and Drug Abuse Patient Records regulations: The Federal rules restrict any use of the information to criminally investigate or prosecute any alcohol or drug abuse patient.[facility] HospitalIn the event this information is protected by the Federal Confidentiality of Alcohol and Drug Abuse Patient Records regulations: The Federal rules restrict any use of the information to criminally investigate or prosecute any alcohol or drug abuse patient.[facility] HospitalIn the event this information is protected by the Federal Confidentiality of Alcohol and Drug Abuse Patient Records regulations: The Federal rules restrict any use of the information to criminally investigate or prosecute any alcohol or drug abuse patient.[facility] HospitalIn the event this information is protected by the Federal Confidentiality of Alcohol and Drug Abuse Patient Records regulations: The Federal rules restrict any use of the information to criminally investigate or prosecute any alcohol or drug abuse patient.[facility] HospitalIn the event this information is protected by the Federal Confidentiality of Alcohol and Drug Abuse Patient Records regulations: The Federal rules restrict any use of the information to criminally investigate or prosecute any alcohol or drug abuse patient.[facility] HospitalIn the event this information is protected by the Federal Confidentiality of Alcohol and Drug Abuse Patient Records regulations: The Federal rules restrict any use of the information to criminally investigate or prosecute any alcohol or drug abuse patient.[facility] HospitalIn the event this information is protected by the Federal Confidentiality of Alcohol and Drug Abuse Patient Records regulations: The Federal rules restrict any use of the information to criminally investigate or prosecute any alcohol or drug abuse patient.[facility] HospitalIn the event this information is protected by the Federal Confidentiality of Alcohol and Drug Abuse Patient Records regulations: The Federal rules restrict any use of the information to criminally investigate or prosecute any alcohol or drug abuse patient.[facility] HospitalIn the event this information is protected by the Federal Confidentiality of Alcohol and Drug Abuse Patient Records regulations: The Federal rules restrict any use of the information to criminally investigate or prosecute any alcohol or drug abuse patient.[facility] HospitalIn the event this information is protected by the Federal Confidentiality of Alcohol and Drug Abuse Patient Records regulations: The Federal rules restrict any use of the information to criminally investigate or prosecute any alcohol or drug abuse patient.[facility] HospitalIn the event this information is protected by the Federal Confidentiality of Alcohol and Drug Abuse Patient Records regulations: The Federal rules restrict any use of the information to criminally investigate or prosecute any alcohol or drug abuse patient.[facility] HospitalIn the event this information is protected by the Federal Confidentiality of Alcohol and Drug Abuse Patient Records regulations: The Federal rules restrict any use of the information to criminally investigate or prosecute any alcohol or drug abuse patient.[facility] HospitalIn the event this information is protected by the Federal Confidentiality of Alcohol and Drug Abuse Patient Records regulations: The Federal rules restrict any use of the information to criminally investigate or prosecute any alcohol or drug abuse patient.[facility] HospitalIn the event this information is protected by the Federal Confidentiality of Alcohol and Drug Abuse Patient Records regulations: The Federal rules restrict any use of the information to criminally investigate or prosecute any alcohol or drug abuse patient.[facility] HospitalIn the event this information is protected by the Federal Confidentiality of Alcohol and Drug Abuse Patient Records regulations: The Federal rules restrict any use of the information to criminally investigate or prosecute any alcohol or drug abuse patient.[facility] HospitalIn the event this information is protected by the Federal Confidentiality of Alcohol and Drug Abuse Patient Records regulations: The Federal rules restrict any use of the information to criminally investigate or prosecute any alcohol or drug abuse patient.[facility] HospitalIn the event this information is protected by the Federal Confidentiality of Alcohol and Drug Abuse Patient Records regulations: The Federal rules restrict any use of the information to criminally investigate or prosecute any alcohol or drug abuse patient.[facility] HospitalIn the event this information is protected by the Federal Confidentiality of Alcohol and Drug Abuse Patient Records regulations: The Federal rules restrict any use of the information to criminally investigate or prosecute any alcohol or drug abuse patient.[facility] HospitalIn the event this information is protected by the Federal Confidentiality of Alcohol and Drug Abuse Patient Records regulations: The Federal rules restrict any use of the information to criminally investigate or prosecute any alcohol or drug abuse patient.[facility] HospitalIn the event this information is protected by the Federal Confidentiality of Alcohol and Drug Abuse Patient Records regulations: The Federal rules restrict any use of the information to criminally investigate or prosecute any alcohol or drug abuse patient.[facility] HospitalIn the event this information is protected by the Federal Confidentiality of Alcohol and Drug Abuse Patient Records regulations: The Federal rules restrict any use of the information to criminally investigate or prosecute any alcohol or drug abuse patient.[facility] HospitalIn the event this information is protected by the Federal Confidentiality of Alcohol and Drug Abuse Patient Records regulations: The Federal rules restrict any use of the information to criminally investigate or prosecute any alcohol or drug abuse patient.[facility] HospitalIn the event this information is protected by the Federal Confidentiality of Alcohol and Drug Abuse Patient Records regulations: The Federal rules restrict any use of the information to criminally investigate or prosecute any alcohol or drug abuse patient.[facility] HospitalIn the event this information is protected by the Federal Confidentiality of Alcohol and Drug Abuse Patient Records regulations: The Federal rules restrict any use of the information to criminally investigate or prosecute any alcohol or drug abuse patient.[facility] HospitalIn the event this information is protected by the Federal Confidentiality of Alcohol and Drug Abuse Patient Records regulations: The Federal rules restrict any use of the information to criminally investigate or prosecute any alcohol or drug abuse patient.[facility] HospitalIn the event this information is protected by the Federal Confidentiality of Alcohol and Drug Abuse Patient Records regulations: The Federal rules restrict any use of the information to criminally investigate or prosecute any alcohol or drug abuse patient.[facility] HospitalIn the event this information is protected by the Federal Confidentiality of Alcohol and Drug Abuse Patient Records regulations: The Federal rules restrict any use of the information to criminally investigate or prosecute any alcohol or drug abuse patient.[facility] HospitalIn the event this information is protected by the Federal Confidentiality of Alcohol and Drug Abuse Patient Records regulations: The Federal rules restrict any use of the information to criminally investigate or prosecute any alcohol or drug abuse patient.[facility] HospitalIn the event this information is protected by the Federal Confidentiality of Alcohol and Drug Abuse Patient Records regulations: The Federal rules restrict any use of the information to criminally investigate or prosecute any alcohol or drug abuse patient.[facility] HospitalIn the event this information is protected by the Federal Confidentiality of Alcohol and Drug Abuse Patient Records regulations: The Federal rules restrict any use of the information to criminally investigate or prosecute any alcohol or drug abuse patient.[facility] HospitalIn the event this information is protected by the Federal Confidentiality of Alcohol and Drug Abuse Patient Records regulations: The Federal rules restrict any use of the information to criminally investigate or prosecute any alcohol or drug abuse patient.[facility] HospitalIn the event this information is protected by the Federal Confidentiality of Alcohol and Drug Abuse Patient Records regulations: The Federal rules restrict any use of the information to criminally investigate or prosecute any alcohol or drug abuse patient.[facility] HospitalIn the event this information is protected by the Federal Confidentiality of Alcohol and Drug Abuse Patient Records regulations: The Federal rules restrict any use of the information to criminally investigate or prosecute any alcohol or drug abuse patient.[facility] HospitalIn the event this information is protected by the Federal Confidentiality of Alcohol and Drug Abuse Patient Records regulations: The Federal rules restrict any use of the information to criminally investigate or prosecute any alcohol or drug abuse patient.[facility] HospitalIn the event this information is protected by the Federal Confidentiality of Alcohol and Drug Abuse Patient Records regulations: The Federal rules restrict any use of the information to criminally investigate or prosecute any alcohol or drug abuse patient.[facility] HospitalIn the event this information is protected by the Federal Confidentiality of Alcohol and Drug Abuse Patient Records regulations: The Federal rules restrict any use of the information to criminally investigate or prosecute any alcohol or drug abuse patient.[facility] HospitalIn the event this information is protected by the Federal Confidentiality of Alcohol and Drug Abuse Patient Records regulations: The Federal rules restrict any use of the information to criminally investigate or prosecute any alcohol or drug abuse patient.[facility] HospitalIn the event this information is protected by the Federal Confidentiality of Alcohol and Drug Abuse Patient Records regulations: The Federal rules restrict any use of the information to criminally investigate or prosecute any alcohol or drug abuse patient.[facility] HospitalIn the event this information is protected by the Federal Confidentiality of Alcohol and Drug Abuse Patient Records regulations: The Federal rules restrict any use of the information to criminally investigate or prosecute any alcohol or drug abuse patient.[facility] HospitalIn the event this information is protected by the Federal Confidentiality of Alcohol and Drug Abuse Patient Records regulations: The Federal rules restrict any use of the information to criminally investigate or prosecute any alcohol or drug abuse patient.[facility] HospitalIn the event this information is protected by the Federal Confidentiality of Alcohol and Drug Abuse Patient Records regulations: The Federal rules restrict any use of the information to criminally investigate or prosecute any alcohol or drug abuse patient.[facility] HospitalIn the event this information is protected by the Federal Confidentiality of Alcohol and Drug Abuse Patient Records regulations: The Federal rules restrict any use of the information to criminally investigate or prosecute any alcohol or drug abuse patient.[facility] HospitalIn the event this information is protected by the Federal Confidentiality of Alcohol and Drug Abuse Patient Records regulations: The Federal rules restrict any use of the information to criminally investigate or prosecute any alcohol or drug abuse patient.[facility] HospitalIn the event this information is protected by the Federal Confidentiality of Alcohol and Drug Abuse Patient Records regulations: The Federal rules restrict any use of the information to criminally investigate or prosecute any alcohol or drug abuse patient.[facility] HospitalIn the event this information is protected by the Federal Confidentiality of Alcohol and Drug Abuse Patient Records regulations: The Federal rules restrict any use of the information to criminally investigate or prosecute any alcohol or drug abuse patient.[facility] HospitalIn the event this information is protected by the Federal Confidentiality of Alcohol and Drug Abuse Patient Records regulations: The Federal rules restrict any use of the information to criminally investigate or prosecute any alcohol or drug abuse patient.[facility] HospitalIn the event this information is protected by the Federal Confidentiality of Alcohol and Drug Abuse Patient Records regulations: The Federal rules restrict any use of the information to criminally investigate or prosecute any alcohol or drug abuse patient.[facility] HospitalIn the event this information is protected by the Federal Confidentiality of Alcohol and Drug Abuse Patient Records regulations: The Federal rules restrict any use of the information to criminally investigate or prosecute any alcohol or drug abuse patient.[facility] HospitalIn the event this information is protected by the Federal Confidentiality of Alcohol and Drug Abuse Patient Records regulations: The Federal rules restrict any use of the information to criminally investigate or prosecute any alcohol or drug abuse patient.[facility] HospitalIn the event this information is protected by the Federal Confidentiality of Alcohol and Drug Abuse Patient Records regulations: The Federal rules restrict any use of the information to criminally investigate or prosecute any alcohol or drug abuse patient.[facility] HospitalIn the event this information is protected by the Federal Confidentiality of Alcohol and Drug Abuse Patient Records regulations: The Federal rules restrict any use of the information to criminally investigate or prosecute any alcohol or drug abuse patient.[facility] HospitalIn the event this information is protected by the Federal Confidentiality of Alcohol and Drug Abuse Patient Records regulations: The Federal rules restrict any use of the information to criminally investigate or prosecute any alcohol or drug abuse patient.[facility] HospitalIn the event this information is protected by the Federal Confidentiality of Alcohol and Drug Abuse Patient Records regulations: The Federal rules restrict any use of the information to criminally investigate or prosecute any alcohol or drug abuse patient.[facility] HospitalIn the event this information is protected by the Federal Confidentiality of Alcohol and Drug Abuse Patient Records regulations: The Federal rules restrict any use of the information to criminally investigate or prosecute any alcohol or drug abuse patient.[facility] HospitalIn the event this information is protected by the Federal Confidentiality of Alcohol and Drug Abuse Patient Records regulations: The Federal rules restrict any use of the information to criminally investigate or prosecute any alcohol or drug abuse patient.[facility] HospitalIn the event this information is protected by the Federal Confidentiality of Alcohol and Drug Abuse Patient Records regulations: The Federal rules restrict any use of the information to criminally investigate or prosecute any alcohol or drug abuse patient.[facility] HospitalIn the event this information is protected by the Federal Confidentiality of Alcohol and Drug Abuse Patient Records regulations: The Federal rules restrict any use of the information to criminally investigate or prosecute any alcohol or drug abuse patient.[facility] HospitalIn the event this information is protected by the Federal Confidentiality of Alcohol and Drug Abuse Patient Records regulations: The Federal rules restrict any use of the information to criminally investigate or prosecute any alcohol or drug abuse patient.[facility] HospitalIn the event this information is protected by the Federal Confidentiality of Alcohol and Drug Abuse Patient Records regulations: The Federal rules restrict any use of the information to criminally investigate or prosecute any alcohol or drug abuse patient.[facility] HospitalIn the event this information is protected by the Federal Confidentiality of Alcohol and Drug Abuse Patient Records regulations: The Federal rules restrict any use of the information to criminally investigate or prosecute any alcohol or drug abuse patient.[facility] HospitalIn the event this information is protected by the Federal Confidentiality of Alcohol and Drug Abuse Patient Records regulations: The Federal rules restrict any use of the information to criminally investigate or prosecute any alcohol or drug abuse patient.[facility] HospitalIn the event this information is protected by the Federal Confidentiality of Alcohol and Drug Abuse Patient Records regulations: The Federal rules restrict any use of the information to criminally investigate or prosecute any alcohol or drug abuse patient.[facility] HospitalIn the event this information is protected by the Federal Confidentiality of Alcohol and Drug Abuse Patient Records regulations: The Federal rules restrict any use of the information to criminally investigate or prosecute any alcohol or drug abuse patient.[facility] HospitalIn the event this information is protected by the Federal Confidentiality of Alcohol and Drug Abuse Patient Records regulations: The Federal rules restrict any use of the information to criminally investigate or prosecute any alcohol or drug abuse patient.[facility] HospitalIn the event this information is protected by the Federal Confidentiality of Alcohol and Drug Abuse Patient Records regulations: The Federal rules restrict any use of the information to criminally investigate or prosecute any alcohol or drug abuse patient.[facility] HospitalIn the event this information is protected by the Federal Confidentiality of Alcohol and Drug Abuse Patient Records regulations: The Federal rules restrict any use of the information to criminally investigate or prosecute any alcohol or drug abuse patient.[facility] HospitalIn the event this information is protected by the Federal Confidentiality of Alcohol and Drug Abuse Patient Records regulations: The Federal rules restrict any use of the information to criminally investigate or prosecute any alcohol or drug abuse patient.[facility] HospitalIn the event this information is protected by the Federal Confidentiality of Alcohol and Drug Abuse Patient Records regulations: The Federal rules restrict any use of the information to criminally investigate or prosecute any alcohol or drug abuse patient.[facility] HospitalIn the event this information is protected by the Federal Confidentiality of Alcohol and Drug Abuse Patient Records regulations: The Federal rules restrict any use of the information to criminally investigate or prosecute any alcohol or drug abuse patient.[facility] HospitalIn the event this information is protected by the Federal Confidentiality of Alcohol and Drug Abuse Patient Records regulations: The Federal rules restrict any use of the information to criminally investigate or prosecute any alcohol or drug abuse patient.[facility] HospitalIn the event this information is protected by the Federal Confidentiality of Alcohol and Drug Abuse Patient Records regulations: The Federal rules restrict any use of the information to criminally investigate or prosecute any alcohol or drug abuse patient.[facility] HospitalIn the event this information is protected by the Federal Confidentiality of Alcohol and Drug Abuse Patient Records regulations: The Federal rules restrict any use of the information to criminally investigate or prosecute any alcohol or drug abuse patient.[facility] HospitalIn the event this information is protected by the Federal Confidentiality of Alcohol and Drug Abuse Patient Records regulations: The Federal rules restrict any use of the information to criminally investigate or prosecute any alcohol or drug abuse patient.[facility] HospitalIn the event this information is protected by the Federal Confidentiality of Alcohol and Drug Abuse Patient Records regulations: The Federal rules restrict any use of the information to criminally investigate or prosecute any alcohol or drug abuse patient.[facility] HospitalIn the event this information is protected by the Federal Confidentiality of Alcohol and Drug Abuse Patient Records regulations: The Federal rules restrict any use of the information to criminally investigate or prosecute any alcohol or drug abuse patient.[facility] HospitalIn the event this information is protected by the Federal Confidentiality of Alcohol and Drug Abuse Patient Records regulations: The Federal rules restrict any use of the information to criminally investigate or prosecute any alcohol or drug abuse patient.[facility] HospitalIn the event this information is protected by the Federal Confidentiality of Alcohol and Drug Abuse Patient Records regulations: The Federal rules restrict any use of the information to criminally investigate or prosecute any alcohol or drug abuse patient.[facility] HospitalIn the event this information is protected by the Federal Confidentiality of Alcohol and Drug Abuse Patient Records regulations: The Federal rules restrict any use of the information to criminally investigate or prosecute any alcohol or drug abuse patient.[facility] HospitalIn the event this information is protected by the Federal Confidentiality of Alcohol and Drug Abuse Patient Records regulations: The Federal rules restrict any use of the information to criminally investigate or prosecute any alcohol or drug abuse patient.[facility] HospitalIn the event this information is protected by the Federal Confidentiality of Alcohol and Drug Abuse Patient Records regulations: The Federal rules restrict any use of the information to criminally investigate or prosecute any alcohol or drug abuse patient.[facility] HospitalIn the event this information is protected by the Federal Confidentiality of Alcohol and Drug Abuse Patient Records regulations: The Federal rules restrict any use of the information to criminally investigate or prosecute any alcohol or drug abuse patient.[facility] HospitalIn the event this information is protected by the Federal Confidentiality of Alcohol and Drug Abuse Patient Records regulations: The Federal rules restrict any use of the information to criminally investigate or prosecute any alcohol or drug abuse patient.[facility] HospitalIn the event this information is protected by the Federal Confidentiality of Alcohol and Drug Abuse Patient Records regulations: The Federal rules restrict any use of the information to criminally investigate or prosecute any alcohol or drug abuse patient.[facility] HospitalIn the event this information is protected by the Federal Confidentiality of Alcohol and Drug Abuse Patient Records regulations: The Federal rules restrict any use of the information to criminally investigate or prosecute any alcohol or drug abuse patient.[facility] HospitalIn the event this information is protected by the Federal Confidentiality of Alcohol and Drug Abuse Patient Records regulations: The Federal rules restrict any use of the information to criminally investigate or prosecute any alcohol or drug abuse patient.[facility] HospitalIn the event this information is protected by the Federal Confidentiality of Alcohol and Drug Abuse Patient Records regulations: The Federal rules restrict any use of the information to criminally investigate or prosecute any alcohol or drug abuse patient.[facility] HospitalIn the event this information is protected by the Federal Confidentiality of Alcohol and Drug Abuse Patient Records regulations: The Federal rules restrict any use of the information to criminally investigate or prosecute any alcohol or drug abuse patient.[facility] HospitalIn the event this information is protected by the Federal Confidentiality of Alcohol and Drug Abuse Patient Records regulations: The Federal rules restrict any use of the information to criminally investigate or prosecute any alcohol or drug abuse patient.[facility] HospitalIn the event this information is protected by the Federal Confidentiality of Alcohol and Drug Abuse Patient Records regulations: The Federal rules restrict any use of the information to criminally investigate or prosecute any alcohol or drug abuse patient.[facility] HospitalIn the event this information is protected by the Federal Confidentiality of Alcohol and Drug Abuse Patient Records regulations: The Federal rules restrict any use of the information to criminally investigate or prosecute any alcohol or drug abuse patient.[facility] HospitalIn the event this information is protected by the Federal Confidentiality of Alcohol and Drug Abuse Patient Records regulations: The Federal rules restrict any use of the information to criminally investigate or prosecute any alcohol or drug abuse patient.[facility] HospitalIn the event this information is protected by the Federal Confidentiality of Alcohol and Drug Abuse Patient Records regulations: The Federal rules restrict any use of the information to criminally investigate or prosecute any alcohol or drug abuse patient.[facility] HospitalIn the event this information is protected by the Federal Confidentiality of Alcohol and Drug Abuse Patient Records regulations: The Federal rules restrict any use of the information to criminally investigate or prosecute any alcohol or drug abuse patient.[facility] HospitalIn the event this information is protected by the Federal Confidentiality of Alcohol and Drug Abuse Patient Records regulations: The Federal rules restrict any use of the information to criminally investigate or prosecute any alcohol or drug abuse patient.[facility] HospitalIn the event this information is protected by the Federal Confidentiality of Alcohol and Drug Abuse Patient Records regulations: The Federal rules restrict any use of the information to criminally investigate or prosecute any alcohol or drug abuse patient.[facility] HospitalIn the event this information is protected by the Federal Confidentiality of Alcohol and Drug Abuse Patient Records regulations: The Federal rules restrict any use of the information to criminally investigate or prosecute any alcohol or drug abuse patient.[facility] HospitalIn the event this information is protected by the Federal Confidentiality of Alcohol and Drug Abuse Patient Records regulations: The Federal rules restrict any use of the information to criminally investigate or prosecute any alcohol or drug abuse patient.[facility] HospitalIn the event this information is protected by the Federal Confidentiality of Alcohol and Drug Abuse Patient Records regulations: The Federal rules restrict any use of the information to criminally investigate or prosecute any alcohol or drug abuse patient.[facility] HospitalIn the event this information is protected by the Federal Confidentiality of Alcohol and Drug Abuse Patient Records regulations: The Federal rules restrict any use of the information to criminally investigate or prosecute any alcohol or drug abuse patient.[facility] HospitalIn the event this information is protected by the Federal Confidentiality of Alcohol and Drug Abuse Patient Records regulations: The Federal rules restrict any use of the information to criminally investigate or prosecute any alcohol or drug abuse patient.[facility] HospitalIn the event this information is protected by the Federal Confidentiality of Alcohol and Drug Abuse Patient Records regulations: The Federal rules restrict any use of the information to criminally investigate or prosecute any alcohol or drug abuse patient.[facility] HospitalIn the event this information is protected by the Federal Confidentiality of Alcohol and Drug Abuse Patient Records regulations: The Federal rules restrict any use of the information to criminally investigate or prosecute any alcohol or drug abuse patient.[facility] HospitalIn the event this information is protected by the Federal Confidentiality of Alcohol and Drug Abuse Patient Records regulations: The Federal rules restrict any use of the information to criminally investigate or prosecute any alcohol or drug abuse patient.[facility] HospitalIn the event this information is protected by the Federal Confidentiality of Alcohol and Drug Abuse Patient Records regulations: The Federal rules restrict any use of the information to criminally investigate or prosecute any alcohol or drug abuse patient.[facility] HospitalIn the event this information is protected by the Federal Confidentiality of Alcohol and Drug Abuse Patient Records regulations: The Federal rules restrict any use of the information to criminally investigate or prosecute any alcohol or drug abuse patient.[facility] HospitalIn the event this information is protected by the Federal Confidentiality of Alcohol and Drug Abuse Patient Records regulations: The Federal rules restrict any use of the information to criminally investigate or prosecute any alcohol or drug abuse patient.[facility] HospitalIn the event this information is protected by the Federal Confidentiality of Alcohol and Drug Abuse Patient Records regulations: The Federal rules restrict any use of the information to criminally investigate or prosecute any alcohol or drug abuse patient.[facility] HospitalIn the event this information is protected by the Federal Confidentiality of Alcohol and Drug Abuse Patient Records regulations: The Federal rules restrict any use of the information to criminally investigate or prosecute any alcohol or drug abuse patient.[facility] HospitalIn the event this information is protected by the Federal Confidentiality of Alcohol and Drug Abuse Patient Records regulations: The Federal rules restrict any use of the information to criminally investigate or prosecute any alcohol or drug abuse patient.[facility] HospitalIn the event this information is protected by the Federal Confidentiality of Alcohol and Drug Abuse Patient Records regulations: The Federal rules restrict any use of the information to criminally investigate or prosecute any alcohol or drug abuse patient.[facility] HospitalIn the event this information is protected by the Federal Confidentiality of Alcohol and Drug Abuse Patient Records regulations: The Federal rules restrict any use of the information to criminally investigate or prosecute any alcohol or drug abuse patient.[facility] HospitalIn the event this information is protected by the Federal Confidentiality of Alcohol and Drug Abuse Patient Records regulations: The Federal rules restrict any use of the information to criminally investigate or prosecute any alcohol or drug abuse patient.[facility] HospitalIn the event this information is protected by the Federal Confidentiality of Alcohol and Drug Abuse Patient Records regulations: The Federal rules restrict any use of the information to criminally investigate or prosecute any alcohol or drug abuse patient.[facility] HospitalIn the event this information is protected by the Federal Confidentiality of Alcohol and Drug Abuse Patient Records regulations: The Federal rules restrict any use of the information to criminally investigate or prosecute any alcohol or drug abuse patient.[facility] HospitalIn the event this information is protected by the Federal Confidentiality of Alcohol and Drug Abuse Patient Records regulations: The Federal rules restrict any use of the information to criminally investigate or prosecute any alcohol or drug abuse patient.[facility] HospitalIn the event this information is protected by the Federal Confidentiality of Alcohol and Drug Abuse Patient Records regulations: The Federal rules restrict any use of the information to criminally investigate or prosecute any alcohol or drug abuse patient.[facility] HospitalIn the event this information is protected by the Federal Confidentiality of Alcohol and Drug Abuse Patient Records regulations: The Federal rules restrict any use of the information to criminally investigate or prosecute any alcohol or drug abuse patient.[facility] HospitalIn the event this information is protected by the Federal Confidentiality of Alcohol and Drug Abuse Patient Records regulations: The Federal rules restrict any use of the information to criminally investigate or prosecute any alcohol or drug abuse patient.[facility] HospitalIn the event this information is protected by the Federal Confidentiality of Alcohol and Drug Abuse Patient Records regulations: The Federal rules restrict any use of the information to criminally investigate or prosecute any alcohol or drug abuse patient.[facility] HospitalIn the event this information is protected by the Federal Confidentiality of Alcohol and Drug Abuse Patient Records regulations: The Federal rules restrict any use of the information to criminally investigate or prosecute any alcohol or drug abuse patient.[facility] HospitalIn the event this information is protected by the Federal Confidentiality of Alcohol and Drug Abuse Patient Records regulations: The Federal rules restrict any use of the information to criminally investigate or prosecute any alcohol or drug abuse patient.[facility] HospitalIn the event this information is protected by the Federal Confidentiality of Alcohol and Drug Abuse Patient Records regulations: The Federal rules restrict any use of the information to criminally investigate or prosecute any alcohol or drug abuse patient.[facility] HospitalIn the event this information is protected by the Federal Confidentiality of Alcohol and Drug Abuse Patient Records regulations: The Federal rules restrict any use of the information to criminally investigate or prosecute any alcohol or drug abuse patient.[facility] HospitalIn the event this information is protected by the Federal Confidentiality of Alcohol and Drug Abuse Patient Records regulations: The Federal rules restrict any use of the information to criminally investigate or prosecute any alcohol or drug abuse patient.[facility] HospitalIn the event this information is protected by the Federal Confidentiality of Alcohol and Drug Abuse Patient Records regulations: The Federal rules restrict any use of the information to criminally investigate or prosecute any alcohol or drug abuse patient.[facility] HospitalIn the event this information is protected by the Federal Confidentiality of Alcohol and Drug Abuse Patient Records regulations: The Federal rules restrict any use of the information to criminally investigate or prosecute any alcohol or drug abuse patient.[facility] HospitalIn the event this information is protected by the Federal Confidentiality of Alcohol and Drug Abuse Patient Records regulations: The Federal rules restrict any use of the information to criminally investigate or prosecute any alcohol or drug abuse patient.[facility] HospitalIn the event this information is protected by the Federal Confidentiality of Alcohol and Drug Abuse Patient Records regulations: The Federal rules restrict any use of the information to criminally investigate or prosecute any alcohol or drug abuse patient.[facility] HospitalIn the event this information is protected by the Federal Confidentiality of Alcohol and Drug Abuse Patient Records regulations: The Federal rules restrict any use of the information to criminally investigate or prosecute any alcohol or drug abuse patient.[facility] Care Teams (unrecognized sec tion and content) Journeyman Carpenter Relationship Specialty Start Date End Date Christina Azul MD [address] [place] [address] PCP - General Family Practice 07/03/21 Sofie iDana MD [address] [place] [address] Primary Staff Physician Cardiology 07/03/21 Verito Whelan MD [address] [place] [address] Referring Pulmonary Disease 10/04/21 Journeyman Carpenter Relationship Specialty Start Date End Date Christina Azul MD [address] [facility] [place] [id number] PCP - General Family Practice 07/03/21 Sofie Diana MD [address] [place] [address] Primary Staff Physician Cardiology 07/03/21 Verito Whelan MD [address] [place] [address] Referring Pulmonary Disease 10/04/21 Journeyman Carpenter Relationship Specialty Start Date End Date Christina Azul MD [address] [facility] [place] [address] PCP - General Family Practice 07/03/21 Sofie Diana MD [address] [place] [address] Primary Staff Physician Cardiology 07/03/21 Verito Whelan MD [address] [place] [address] Referring Pulmonary Disease 10/04/21 Journeyman Carpenter Relationship Specialty Start Date End Date Christina Azul MD [address] [place] [address] PCP - General Family Practice 07/03/21 Sofie Diana MD [address] [place] [address] Primary Staff Physician Cardiology 07/03/21 Verito Whelan MD [address] [place] [address] Referring Pulmonary Disease 10/04/21 Nina Grigsby MD [address] [facility] [place] [address] Physician Hematology/Oncology 10/25/21 Patricia Miller, BRASS CUTTER.ELDERLY CAREGIVER [address] [facility] [place] [address] Nurse Practitioner Hematology/Oncology 10/25/21 Denita Rai, KERRY [address] [facility] [place] [address] Specialty Software Project Manager Hematology/Oncology 10/25/21 Journeyman Carpenter Relationship Specialty Start Date End Date Christina Azul MD [address] [place] [address] PCP - General Family Practice 07/03/21 Sofie Diana MD [address] [place] [address] Primary Staff Physician Cardiology 07/03/21 Verito Whelan MD [address] [place] [address] Referring Pulmonary Disease 10/04/21 Nina Grigsby MD [address] [facility] [place] [address] Physician Hematology/Oncology 10/25/21 Patricia Miller APRN.ELDERLY CAREGIVER [address] [facility] [place] [address] Nurse Practitioner Hematology/Oncology 10/25/21 Denita Rai, KERRY [address] [facility] [place] [address] Specialty Software Project Manager Hematology/Oncology 10/25/21 Journeyman Carpenter Relationship Specialty Start Date End Date Christina Azul MD [address] [place] [address] PCP - General Family Practice 07/03/21 Sofie Diana MD [address] [place] [address] Primary Staff Physician Cardiology 07/03/21 Verito Whelan MD [address] [place] [address] Referring Pulmonary Disease 10/04/21 Journeyman Carpenter Relationship Specialty Start Date End Date Christina Azul MD [address] [place] [address] PCP - General Family Practice 07/03/21 Sofie Diana MD [address] [place] [address] Primary Staff Physician Cardiology 07/03/21 Verito Whelan MD [address] [place] [address] Referring Pulmonary Disease 10/04/21 Nina Grigsby MD [address] [facility] [place] [address] Physician Hematology/Oncology 10/25/21 Patricia Miller, BRASS CUTTER.[address] [place] [address] Nurse Practitioner Hematology/Oncology 10/25/21 Denita Rai, KERRY [address] [place] [address] [place] [address] Specialty Software Project Manager Hematology/Oncology 10/25/21 Journeyman Carpenter Relationship Specialty Start Date End Date Christina Azul MD [address] [place] [address] PCP - General Family Practice 07/03/21 Sofie Diana MD [address] [place] [address] Primary Staff Physician Cardiology 07/03/21 Verito Whelan MD [address] [place] [address] Referring Pulmonary Disease 10/04/21 Nina Grigsby MD [address] [facility] [place] [address] Physician Hematology/Oncology 10/25/21 Patricia Miller, BRASS CUTTER.[address] [place] [address] Nurse Practitioner Hematology/Oncology 10/25/21 Denita Rai, KERRY [address] [facility] [place] [address] Specialty Software Project Manager Hematology/Oncology 10/25/21 Journeyman Carpenter Relationship Specialty Start Date End Date Christina Azul MD [address] [place] [address] PCP - General Family Practice 07/03/21 Sofie Diana MD [address] [place] [address] Primary Staff Physician Cardiology 07/03/21 Verito Whelan MD [address] [place], [place] [id number] Referring Pulmonary Disease 10/04/21 Nina Grigsby MD [address] [facility] [place] [address] Physician Hematology/Oncology 10/25/21 Patricia Miller, BRASS CUTTER.ELDERLY CAREGIVER [address] [facility] [place] [address] Nurse Practitioner Hematology/Oncology 10/25/21 Denita Rai, RN [address] [facility] [place] [address] Specialty Software Project Manager Hematology/Oncology 10/25/21 Journeyman Carpenter Relationship Specialty Start Date End Date Christina Azul MD [address] [place] [id number] PCP - General Family Practice 07/03/21 Sofie Diana MD [address] [place] [address] Primary Staff Physician Cardiology 07/03/21 Verito Whelan MD [address] [place], [place] [id number] Referring Pulmonary Disease 10/04/21 Nina Grigsby MD [address] [facility] [place] [address] Physician Hematology/Oncology 10/25/21 Patricia Miller BRASS CUTTER.ELDERLY CAREGIVER [address] [facility] [place] [address] Nurse Practitioner Hematology/Oncology 10/25/21 Denita Rai, RN [address] [facility] [place] [address] Specialty Software Project Manager Hematology/Oncology 10/25/21 Journeyman Carpenter Relationship Specialty Start Date End Date Christina Azul MD [address] [place] [address] PCP - General Family Practice 07/03/21 Sofie Diana MD [address] [place] [address] Primary Staff Physician Cardiology 07/03/21 Verito Whelan MD [address] [place] [address] Referring Pulmonary Disease 10/04/21 Nina Grigsby MD [address] [facility] [place] [address] Physician Hematology/Oncology 10/25/21 Patricia Miller, BRASS CUTTER.ELDERLY CAREGIVER [address] [facility] [place] [address] Nurse Practitioner Hematology/Oncology 10/25/21 Denita Rai, KERRY [address] [facility] [place] [address] Specialty Software Project Manager Hematology/Oncology 10/25/21 Journeyman Carpenter Relationship Specialty Start Date End Date Christina Azul MD [address] [place] [address] PCP - General Family Practice 07/03/21 Sofie Diana MD [address] [place] [address] Primary Staff Physician Cardiology 07/03/21 Verito Whelan MD [address] [place] [address] Referring Pulmonary Disease 10/04/21 Nina Grigsby MD [address] [facility] [place] [address] Physician Hematology/Oncology 10/25/21 Patricia Miller, BRASS CUTTER.ELDERLY CAREGIVER [address] [facility] [place] [address] Nurse Practitioner Hematology/Oncology 10/25/21 Denita Rai, RN [address] [facility] [place] [address] Specialty Software Project Manager Hematology/Oncology 10/25/21 Journeyman Carpenter Relationship Specialty Start Date End Date Christina Azul MD [address] [place] [address] PCP - General Family Practice 07/03/21 Sofie Diana MD [address] [place] [address] Primary Staff Physician Cardiology 07/03/21 Verito Whelan MD [address] [place] [address] Referring Pulmonary Disease 10/04/21 Nina Grigsby MD [address] [facility] [place] [address] Physician Hematology/Oncology 10/25/21 Patricia Miller, BRASS CUTTER.ELDERLY CAREGIVER [address] [facility] [place] [address] Nurse Practitioner Hematology/Oncology 10/25/21 Denita Rai, KERRY [address] [facility] [place] [address] Specialty Software Project Manager Hematology/Oncology 10/25/21 Journeyman Carpenter Relationship Specialty Start Date End Date Christina Azul MD [address] [place] [address] PCP - General Family Practice 07/03/21 Sofie Diana MD [address] [place] [address] Primary Staff Physician Cardiology 07/03/21 Verito Whelan MD [address] [place] [address] Referring Pulmonary Disease 10/04/21 Nina Grigsby MD [address] [facility] [place] [address] Physician Hematology/Oncology 10/25/21 Patricia Miller APRN.ELDERLY CAREGIVER [address] [facility] [place] [address] Nurse Practitioner Hematology/Oncology 10/25/21 Denita Rai, KERRY [address] [facility] [place] [address] Specialty Software Project Manager Hematology/Oncology 10/25/21 Journeyman Carpenter Relationship Specialty Start Date End Date Christina Azul MD [address] [place] [address] PCP - General Family Practice 07/03/21 Sofie Diana MD [address] [place] [address] Primary Staff Physician Cardiology 07/03/21 Verito Whelan MD [address] [place] [address] Referring Pulmonary Disease 10/04/21 Nina Grigsby MD [address] [facility] [place] [address] Physician Hematology/Oncology 10/25/21 Patricia Miller, BRASS CUTTER.ELDERLY CAREGIVER [address] [facility] [place] [address] Nurse Practitioner Hematology/Oncology 10/25/21 Denita Rai, KERRY [address] [place] [address] [place] [address] Specialty Software Project Manager Hematology/Oncology 10/25/21 Journeyman Carpenter Relationship Specialty Start Date End Date Christina Azul MD [address] [place] [address] PCP - General Family Practice 07/03/21 Sofie Diana MD [address] [place] [address] Primary Staff Physician Cardiology 07/03/21 Verito Whelan MD [address] [place] [address] Referring Pulmonary Disease 10/04/21 Nina Grigsby MD [address] [facility] [place] [address] Physician Hematology/Oncology 10/25/21 Patricia Miller, BRASS CUTTER.ELDERLY CAREGIVER [address] [facility] [place] [address] Nurse Practitioner Hematology/Oncology 10/25/21 Denita Rai, KERRY [address] [facility] [place] [address] Specialty Software Project Manager Hematology/Oncology 10/25/21 Journeyman Carpenter Relationship Specialty Start Date End Date Christina Azul MD [address] [place], [place] [id number] PCP - General Family Practice 07/03/21 Sofie Diana MD [address] [place] [address] Primary Staff Physician Cardiology 07/03/21 Verito Whelan MD [address] [place] [address] Referring Pulmonary Disease 10/04/21 Nina Grigsby MD [address] [place] [address] [place] [address] Physician Hematology/Oncology 10/25/21 Patricia Miller, BRASS CUTTER.ELDERLY CAREGIVER [address] [facility] [place] [address] Nurse Practitioner Hematology/Oncology 10/25/21 Denita Rai, RN [address] [facility] [place] [address] Specialty Software Project Manager Hematology/Oncology 10/25/21 Journeyman Carpenter Relationship Specialty Start Date End Date Christina Azul MD [address] [place] [address] PCP - General Family Practice 07/03/21 Sofie Diana MD [address] [place] [address] Primary Staff Physician Cardiology 07/03/21 Verito Whelan MD [address] [place] [address] Referring Pulmonary Disease 10/04/21 Nina Grigsby MD [address] [facility] [place] [address] Physician Hematology/Oncology 10/25/21 Patricia Miller, BRASS CUTTER.[address] [place] [address] Nurse Practitioner Hematology/Oncology 10/25/21 Denita Rai, KERRY [address] [place] [address] [place] [address] Specialty Software Project Manager Hematology/Oncology 10/25/21 Journeyman Carpenter Relationship Specialty Start Date End Date Christina Azul MD [address] [place], [place] [id number] PCP - General Family Practice 07/03/21 Sofie Diana MD [address] [place] [address] Primary Staff Physician Cardiology 07/03/21 Verito Whelan MD [address] [place] [address] Referring Pulmonary Disease 10/04/21 Nina Grigsby MD [address] [place] [address] [place] [address] Physician Hematology/Oncology 10/25/21 Patricia Miller, BRASS CUTTER.[address] [place] [address] Nurse Practitioner Hematology/Oncology 10/25/21 Denita Rai, KERRY [address] [place] [address] [place] [address] Specialty Software Project Manager Hematology/Oncology 10/25/21 Journeyman Carpenter Relationship Specialty Start Date End Date Christina Azul MD [address] [place] [address] PCP - General Family Practice 07/03/21 Sofie Diana MD [address] [place], [place] 8096195 Primary Staff Physician Cardiology 07/03/21 Verito Whelan MD [address] [place], [place] 4276695 Referring Pulmonary Disease 10/04/21 Nina Grigsby MD [address] [facility] [place] [address] Physician Hematology/Oncology 10/25/21 Patricia Miller, BRASS CUTTER.ELDERLY CAREGIVER [address] [facility] [place] [address] Nurse Practitioner Hematology/Oncology 10/25/21 Denita Rai, KERRY [address] [facility] [place] [address] Specialty Software Project Manager Hematology/Oncology 10/25/21 Journeyman Carpenter Relationship Specialty Start Date End Date Christina Azul MD [address] [place] [address] PCP - General Family Practice 07/03/21 Sofie Diana MD [address] [place] [address] Primary Staff Physician Cardiology 07/03/21 Verito Whelan MD [address] [place] [address] Referring Pulmonary Disease 10/04/21 Nina Grigsby MD [address] [facility] [place] [address] Physician Hematology/Oncology 10/25/21 Patricia Miller, BRASS CUTTER.[address] [place] [address] Nurse Practitioner Hematology/Oncology 10/25/21 Denita Rai, KERRY [address] [place] [address] [place] [address] Specialty Software Project Manager Hematology/Oncology 10/25/21 Journeyman Carpenter Relationship Specialty Start Date End Date Christina Azul MD [address] [place] [id number] PCP - General Family Practice 07/03/21 Sofie Diana MD [address] [place], [place] [id number] Primary Staff Physician Cardiology 07/03/21 Verito Whelan MD [address] [place] [address] Referring Pulmonary Disease 10/04/21 Nina Grigsby MD [address] [facility] [place] [address] Physician Hematology/Oncology 10/25/21 Patricia Miller, BRASS CUTTER.[address] [place] [address] Nurse Practitioner Hematology/Oncology 10/25/21 Denita Rai, RN [address] [place] [address] [place] [address] Specialty Software Project Manager Hematology/Oncology 10/25/21 Journeyman Carpenter Relationship Specialty Start Date End Date Christina Azul MD [address] [place] [id number] PCP - General Family Practice 07/03/21 Sofie Diana MD [address] [place] [address] Primary Staff Physician Cardiology 07/03/21 Verito Whelan MD [address] [place] [address] Referring Pulmonary Disease 10/04/21 Nina Grigsby MD [address] [facility] [place] [address] Physician Hematology/Oncology 10/25/21 Patricia Miller, BRASS CUTTER.ELDERLY CAREGIVER [address] [facility] [place] [address] Nurse Practitioner Hematology/Oncology 10/25/21 Denita Rai, RN [address] [place] [address] [place] [address] Specialty Software Project Manager Hematology/Oncology 10/25/21 Journeyman Carpenter Relationship Specialty Start Date End Date Christina Azul MD [address] [place] [address] PCP - General Family Practice 07/03/21 Sofie Diana MD [address] [place] [address] Primary Staff Physician Cardiology 07/03/21 Verito Whelan MD [address] [place] [address] Referring Pulmonary Disease 10/04/21 Nina Grigsby MD [address] [facility] [place] [address] Physician Hematology/Oncology 10/25/21 Patricia Miller, BRASS CUTTER.ELDERLY CAREGIVER [address] [facility] [place] [address] Nurse Practitioner Hematology/Oncology 10/25/21 Denita Rai, KERRY [address] [facility] [place] [address] Specialty Software Project Manager Hematology/Oncology 10/25/21 Journeyman Carpenter Relationship Specialty Start Date End Date Christina Azul MD [address] [place] [address] PCP - General Family Practice 07/03/21 Sofie Diana MD [address] [place] [address] Primary Staff Physician Cardiology 07/03/21 Verito Whelan MD [address] [place], [place] 2116995 Referring Pulmonary Disease 10/04/21 Nina Grigsby MD [address] [facility] [place] [address] Physician Hematology/Oncology 10/25/21 Patricia Miller, BRASS CUTTER.ELDERLY CAREGIVER [address] [facility] [place] [address] Nurse Practitioner Hematology/Oncology 10/25/21 Denita Rai, KERRY [address] [facility] [place] [address] Specialty Software Project Manager Hematology/Oncology 10/25/21 Journeyman Carpenter Relationship Specialty Start Date End Date Christina Azul MD [address] [place] [address] PCP - General Family Practice 07/03/21 Sofie Diana MD [address] [place] [address] Primary Staff Physician Cardiology 07/03/21 Verito Whelan MD [address] [place] [address] Referring Pulmonary Disease 10/04/21 Nina Grigsby MD [address] [facility] [place] [address] Physician Hematology/Oncology 10/25/21 Patricia Miller, BRASS CUTTER.ELDERLY CAREGIVER [address] [facility] [place] [address] Nurse Practitioner Hematology/Oncology 10/25/21 Denita Rai, KERRY [address] [facility] [place] [address] Specialty Software Project Manager Hematology/Oncology 10/25/21 Journeyman Carpenter Relationship Specialty Start Date End Date Christina Azul MD [address] [place] [address] PCP - General Family Practice 07/03/21 Sofie Diana MD [address] [place] [address] Primary Staff Physician Cardiology 07/03/21 Verito Whelan MD [address] [place] [address] Referring Pulmonary Disease 10/04/21 Nina Grigsby MD [address] [facility] [place] [address] Physician Hematology/Oncology 10/25/21 Patricia Miller, BRASS CUTTER.ELDERLY CAREGIVER [address] [facility] [place] [address] Nurse Practitioner Hematology/Oncology 10/25/21 Denita Rai, KERRY [address] [facility] [place] [address] Specialty Software Project Manager Hematology/Oncology 10/25/21 Team Status: Inactive Member Role Status Dates Cristy Swann PA-C Attending Provider Active PHYSICIAN NO FAMILY Primary Care Provider Active Team Status: Active Member Role Status Dates PHYSICIAN NO FAMILY Primary Care Provider Active Journeyman Carpenter Relationship Specialty Start Date End Date Christina Azul MD [address] [place] [address] PCP - General Family Practice 07/03/21 Sofie Diana MD [address] [place] [address] Primary Staff Physician Cardiology 07/03/21 Veriot Whelan MD [address] [place], [place] 8893895 Referring Pulmonary Disease 10/04/21 Nina Grigsby MD [address] [facility] [place] [address] Physician Hematology/Oncology 10/25/21 Patricia Miller, BRASS CUTTER.ELDERLY CAREGIVER [address] [facility] [place] [address] Nurse Practitioner Hematology/Oncology 10/25/21 Denita Rai, RN [address] [facility] [place] [address] Specialty Software Project Manager Hematology/Oncology 10/25/21 Journeyman Carpenter Relationship Specialty Start Date End Date Christina Azul MD [address] [place] [address] PCP - General Family Practice 07/03/21 Sofie Diana MD [address] [place] [address] Primary Staff Physician Cardiology 07/03/21 Verito Whelan MD [address] [place], [place] 4280095 Referring Pulmonary Disease 10/04/21 Nina Grigsby MD [address] [facility] [place] [address] Physician Hematology/Oncology 10/25/21 Patricia Miller, BRASS CUTTER.ELDERLY CAREGIVER [address] [facility] [place] [address] Nurse Practitioner Hematology/Oncology 10/25/21 Denita Rai, RN [address] [facility] [place] [address] Specialty Software Project Manager Hematology/Oncology 10/25/21 Journeyman Carpenter Relationship Specialty Start Date End Date Christina Azul MD [address] [place] [address] PCP - General Family Practice 07/03/21 Sofie Diana MD [address] [place] [address] Primary Staff Physician Cardiology 07/03/21 Verito Whelan MD [address] [place] [address] Referring Pulmonary Disease 10/04/21 Nina Grigsby MD [address] [facility] [place] [address] Physician Hematology/Oncology 10/25/21 Patricia Miller, BRASS CUTTER.ELDERLY CAREGIVER [address] [facility] [place] [address] Nurse Practitioner Hematology/Oncology 10/25/21 Denita Rai, RN [address] [facility] [place] [address] Specialty Software Project Manager Hematology/Oncology 10/25/21 Journeyman Carpenter Relationship Specialty Start Date End Date Christina Azul MD [address] [place] [address] PCP - General Family Practice 07/03/21 Sofie Diana MD [address] [place] [address] Primary Staff Physician Cardiology 07/03/21 Verito Whelan MD [address] [place] [address] Referring Pulmonary Disease 10/04/21 Nina Grigsby MD [address] [place] [address] [place] [address] Physician Hematology/Oncology 10/25/21 Patricia Miller APRN.ELDERLY CAREGIVER [address] [facility] [place] [address] Nurse Practitioner Hematology/Oncology 10/25/21 Denita Rai, RN [address] [facility] [place] [address] Specialty Software Project Manager Hematology/Oncology 10/25/21 Journeyman Carpenter Relationship Specialty Start Date End Date Christina Azul MD [address] [place] [id number] PCP - General Family Medicine 07/03/21 Sofie Diana MD [address] [place] [address] Primary Staff Physician Cardiology 07/03/21 Verito Whelan MD [address] [place] [address] Referring Pulmonary Disease 10/04/21 Nina Grigsby MD [address] [facility] [place] [address] Physician Hematology/Oncology 10/25/21 Patricia Miller, BRASS CUTTER.ELDERLY CAREGIVER [address] [facility] [place] [address] Nurse Practitioner Hematology/Oncology 10/25/21 Denita Rai, KERRY [address] [facility] [place] [address] Specialty Software Project Manager Hematology/Oncology 10/25/21 Journeyman Carpenter Relationship Specialty Start Date End Date Christina Azul MD [address] [place] [address] PCP - General Family Medicine 07/03/21 Sofie Diana MD [address] [place] [address] Primary Staff Physician Cardiology 07/03/21 Verito Whelan MD [address] [place] [address] Referring Pulmonary Disease 10/04/21 Nina Grigsby MD [address] [facility] [place] [address] Physician Hematology/Oncology 10/25/21 Patricia Miller, BRASS CUTTER.ELDERLY CAREGIVER [address] [facility] [place] [address] Nurse Practitioner Hematology/Oncology 10/25/21 Denita Rai, KERRY [address] [facility] [place] [address] Specialty Software Project Manager Hematology/Oncology 10/25/21 Journeyman Carpenter Relationship Specialty Start Date End Date Christina Azul MD [address] [place] [address] PCP - General Family Medicine 07/03/21 Sofie Diana MD [address] [place] [address] Primary Staff Physician Cardiology 07/03/21 Verito Whelan MD [address] [place] [address] Referring Pulmonary Disease 10/04/21 Nina Grigsby MD [address] [facility] [place] [address] Physician Hematology/Oncology 10/25/21 Patricia Miller, BRASS CUTTER.ELDERLY CAREGIVER [address] [facility] [place] [address] Nurse Practitioner Hematology/Oncology 10/25/21 Denita Rai, KERRY [address] [facility] [place] [address] Specialty Software Project Manager Hematology/Oncology 10/25/21 Journeyman Carpenter Relationship Specialty Start Date End Date Christina Azul MD [address] [place] [address] PCP - General Family Medicine 07/03/21 Sofie Diana MD [address] [place] [address] Primary Staff Physician Cardiology 07/03/21 Verito Whelan MD [address] [place] [address] Referring Pulmonary Disease 10/04/21 Nina Grigsby MD [address] [facility] [place] [address] Physician Hematology/Oncology 10/25/21 Patricia Miller, BRASS CUTTER.ELDERLY CAREGIVER [address] [facility] [place] [address] Nurse Practitioner Hematology/Oncology 10/25/21 Denita Rai, KERRY [address] [facility] [place] [address] Specialty Software Project Manager Hematology/Oncology 10/25/21 Journeyman Carpenter Relationship Specialty Start Date End Date Christina Azul MD [address] [place] [id number] PCP - General Family Medicine 07/03/21 Sofie Diana MD [address] [place], [place] [id number] Primary Staff Physician Cardiology 07/03/21 Verito Whelan MD [address] [place] [address] Referring Pulmonary Disease 10/04/21 Nina Grigsby MD [address] [facility] [place] [address] Physician Hematology/Oncology 10/25/21 Patricia Miller, OZZIE.[facility] [address] [facility] [place] [address] Nurse Practitioner Hematology/Oncology 10/25/21 Denita Rai, KERRY [address] [facility] [place] [address] Specialty Software Project Manager Hematology/Oncology 10/25/21 Journeyman Carpenter Relationship Specialty Start Date End Date Christina Azul MD [address] [place] [id number] PCP - General Family Medicine 07/03/21 Sofie Diana MD [address] [place] [address] Primary Staff Physician Cardiology 07/03/21 Verito Whelan MD [address] [place] [address] Referring Pulmonary Disease 10/04/21 Nina Grigsby MD [address] [facility] [place] [address] Physician Hematology/Oncology 10/25/21 Patricia Miller, BRASS CUTTER.ELDERLY CAREGIVER [address] [facility] [place] [address] Nurse Practitioner Hematology/Oncology 10/25/21 Denita Rai, KERRY [address] [place] [address] [place] [address] Specialty Software Project Manager Hematology/Oncology 10/25/21 Journeyman Carpenter Relationship Specialty Start Date End Date Christina Azul MD [address] [place] [address] PCP - General Family Medicine 07/03/21 Sofie Diana MD [address] [place] [address] Primary Staff Physician Cardiology 07/03/21 Verito Whelan MD [address] [place] [address] Referring Pulmonary Disease 10/04/21 Nina Grigsby MD [address] [facility] [place] [address] Physician Hematology/Oncology 10/25/21 Patricia Miller, BRASS CUTTER.ELDERLY CAREGIVER [address] [facility] [place] [address] Nurse Practitioner Hematology/Oncology 10/25/21 Denita Rai, KERRY [address] [place] [address] [place] [address] Specialty Software Project Manager Hematology/Oncology 10/25/21 Journeyman Carpenter Relationship Specialty Start Date End Date Christina Azul MD [address] [place] [id number] PCP - General Family Medicine 07/03/21 Sofie Diana MD [address] [place] [address] Primary Staff Physician Cardiology 07/03/21 Verito Whelan MD [address] [place], [place] 1237595 Referring Pulmonary Disease 10/04/21 Nina Grigsby MD [address] [place] [address] [place] [address] Physician Hematology/Oncology 10/25/21 Patricia Miller, BRASS CUTTER.ELDERLY CAREGIVER [address] [facility] [place] [address] Nurse Practitioner Hematology/Oncology 10/25/21 Denita Rai, KERRY [address] [facility] [place] [address] Specialty Software Project Manager Hematology/Oncology 10/25/21 Journeyman Carpenter Relationship Specialty Start Date End Date Christina Azul MD [address] [place] [id number] PCP - General Family Medicine 07/03/21 Sofie Diana MD [address] [place] [address] Primary Staff Physician Cardiology 07/03/21 Verito Whelan MD [address] [place], [place] 8654395 Referring Pulmonary Disease 10/04/21 Nina Grigsby MD [address] [facility] [place] [address] Physician Hematology/Oncology 10/25/21 Patricia Miller, BRASS CUTTER.[address] [place] [address] Nurse Practitioner Hematology/Oncology 10/25/21 Denita Rai, KERRY [address] [place] [address] [place] [address] Specialty Software Project Manager Hematology/Oncology 10/25/21 Journeyman Carpenter Relationship Specialty Start Date End Date Christina Azul MD [address] [place] [address] PCP - General Family Medicine 07/03/21 Sofie Diana MD [address] [place] [address] Primary Staff Physician Cardiology 07/03/21 Verito Whelan MD [address] [place] [address] Referring Pulmonary Disease 10/04/21 Nina Grigsby MD [address] [facility] [place] [address] Physician Hematology/Oncology 10/25/21 Patricia Miller, BRASS CUTTER.[address] [place] [address] Nurse Practitioner Hematology/Oncology 10/25/21 Denita Rai, KERRY [address] [facility] [place] [address] Specialty Software Project Manager Hematology/Oncology 10/25/21 Journeyman Carpenter Relationship Specialty Start Date End Date Christina Azul MD [address] [place] [address] PCP - General Family Medicine 07/03/21 Sofie Diana MD [address] [place] [address] Primary Staff Physician Cardiology 07/03/21 Verito Whelan MD [address] [place] [address] Referring Pulmonary Disease 10/04/21 Nina Grigsby MD [address] [facility] [place] [address] Physician Hematology/Oncology 10/25/21 Patricia Miller, BRASS CUTTER.ELDERLY CAREGIVER [address] [facility] [place] [address] Nurse Practitioner Hematology/Oncology 10/25/21 Denita Rai, RN [address] [facility] [place] [address] Specialty Software Project Manager Hematology/Oncology 10/25/21 Journeyman Carpenter Relationship Specialty Start Date End Date Christina Azul MD [address] [place] [address] PCP - General Family Medicine 07/03/21 Sofie Diana MD [address] [place] [address] Primary Staff Physician Cardiology 07/03/21 Verito Whelan MD [address] [place] [address] Referring Pulmonary Disease 10/04/21 Nina Grigsby MD [address] [facility] [place] [address] Physician Hematology/Oncology 10/25/21 Patricia Miller, BRASS CUTTER.ELDERLY CAREGIVER [address] [facility] [place] [address] Nurse Practitioner Hematology/Oncology 10/25/21 Denita Rai, RN [address] [facility] [place] [address] Specialty Software Project Manager Hematology/Oncology 10/25/21 Journeyman Carpenter Relationship Specialty Start Date End Date Christina Azul MD [address] [place] [address] PCP - General Family Medicine 07/03/21 Sofie Diana MD [address] [place] [address] Primary Staff Physician Cardiology 07/03/21 Verito Whelan MD [address] [place] [address] Referring Pulmonary Disease 10/04/21 Nina Grigsby MD [address] [facility] [place] [address] Physician Hematology/Oncology 10/25/21 Patricia Miller, BRASS CUTTER.ELDERLY CAREGIVER [address] [facility] [place] [address] Nurse Practitioner Hematology/Oncology 10/25/21 Denita Rai, KERRY [address] [facility] [place] [address] Specialty Software Project Manager Hematology/Oncology 10/25/21 Journeyman Carpenter Relationship Specialty Start Date End Date Christina Azul MD [address] [place] [address] PCP - General Family Medicine 07/03/21 Sofie Diana MD [address] [place] [address] Primary Staff Physician Cardiology 07/03/21 Verito Whelan MD [address] [place] [address] Referring Pulmonary Disease 10/04/21 Nina Grigsby MD [address] [facility] [place] [address] Physician Hematology/Oncology 10/25/21 Patricia Miller, BRASS CUTTER.ELDERLY CAREGIVER [address] [facility] [place] [address] Nurse Practitioner Hematology/Oncology 10/25/21 Denita Rai, KERRY [address] [facility] [place] [address] Specialty Software Project Manager Hematology/Oncology 10/25/21 Journeyman Carpenter Relationship Specialty Start Date End Date Christina Azul MD [address] [place] [address] PCP - General Family Medicine 07/03/21 Sofie Diana MD [address] [place] [address] Primary Staff Physician Cardiology 07/03/21 Verito Whelan MD [address] [place] [address] Referring Pulmonary Disease 10/04/21 Nina Grigsby MD [address] [facility] [place] [address] Physician Hematology/Oncology 10/25/21 Patricia Miller, BRASS CUTTER.ELDERLY CAREGIVER [address] [facility] [place] [address] Nurse Practitioner Hematology/Oncology 10/25/21 Denita Rai, KERRY [address] [facility] [place] [address] Specialty Software Project Manager Hematology/Oncology 10/25/21 Journeyman Carpenter Relationship Specialty Start Date End Date Christina Azul MD [address] [place] [address] PCP - General Family Medicine 07/03/21 Sofie Diana MD [address] [place] [address] Primary Staff Physician Cardiology 07/03/21 Verito Whelan MD [address] [place] [address] Referring Pulmonary Disease 10/04/21 Nina Grigsby MD [address] [facility] [place] [address] Physician Hematology/Oncology 10/25/21 Patricia Miller, OZZIE.ELDERLY CAREGIVER [address] [facility] [place] [address] Nurse Practitioner Hematology/Oncology 10/25/21 Denita Rai, KERRY [address] [facility] [place] [address] Specialty Software Project Manager Hematology/Oncology 10/25/21 Journeyman Carpenter Relationship Specialty Start Date End Date Christina Azul MD [address] [place] [address] PCP - General Family Medicine 07/03/21 Sofie Diana MD [address] [place] [address] Primary Staff Physician Cardiology 07/03/21 Verito Whelan MD [address] [place] [address] Referring Pulmonary Disease 10/04/21 Nina Grigsby MD [address] [facility] [address] [place], [place] 1994670 Physician Hematology/Oncology 10/25/21 Patricia Miller, BRASS CUTTER.ELDERLY CAREGIVER [address] [facility] [place] [address] Nurse Practitioner Hematology/Oncology 10/25/21 Denita Rai, KERRY [address] [facility] [place] [address] Specialty Software Project Manager Hematology/Oncology 10/25/21 Journeyman Carpenter Relationship Specialty Start Date End Date Christina Azul MD [address] [place] [address] PCP - General Family Medicine 07/03/21 Sofie Diana MD [address] [place] [address] Primary Staff Physician Cardiology 07/03/21 Verito Whelan MD [address] [place] [address] Referring Pulmonary Disease 10/04/21 Nina Grigsby MD [address] [facility] [address] Physician Hematology/Oncology 10/25/21 Patricia Miller, BRASS CUTTER.ELDERLY CAREGIVER [address] [facility] [place] [address] Nurse Practitioner Hematology/Oncology 10/25/21 Denita Rai, KERRY [address] [facility] [place] [address] Specialty Software Project Manager Hematology/Oncology 10/25/21 Journeyman Carpenter Relationship Specialty Start Date End Date Christina Azul MD [address] [place] [id number] PCP - General Family Medicine 07/03/21 Sofie Diana MD [address] [place] [address] Primary Staff Physician Cardiology 07/03/21 Verito Whelan MD [address] [place] [address] Referring Pulmonary Disease 10/04/21 Nina Grigsby MD [address] [place] [address] [place] [address] Physician Hematology/Oncology 10/25/21 Patricia Miller, BRASS CUTTER.ELDERLY CAREGIVER [address] [facility] [place] [address] Nurse Practitioner Hematology/Oncology 10/25/21 Denita Rai, RN [address] [place] [address] [place] [address] Specialty Software Project Manager Hematology/Oncology 10/25/21 Journeyman Carpenter Relationship Specialty Start Date End Date Christina Azul MD [address] [place] [id number] PCP - General Family Medicine 07/03/21 Sofie Diana MD [address] [place] [address] Primary Staff Physician Cardiology 07/03/21 Verito Whelan MD [address] [place] [address] Referring Pulmonary Disease 10/04/21 Nina Grigsby MD [address] [facility] [place] [address] Physician Hematology/Oncology 10/25/21 Patricia Miller, BRASS CUTTER.[address] [place] [address] Nurse Practitioner Hematology/Oncology 10/25/21 Denita Rai, KERRY [address] [place] [address] [place] [address] Specialty Software Project Manager Hematology/Oncology 10/25/21 Journeyman Carpenter Relationship Specialty Start Date End Date Christina Azul MD [address] [place], [place] [id number] PCP - General Family Medicine 07/03/21 Sofie Diana MD [address] [place] [address] Primary Staff Physician Cardiology 07/03/21 Verito Whelan MD [address] [place] [address] Referring Pulmonary Disease 10/04/21 Nina Grigsby MD [address] [place] [address] [place] [address] Physician Hematology/Oncology 10/25/21 Patricia Miller, BRASS CUTTER.[address] [place] [address] Nurse Practitioner Hematology/Oncology 10/25/21 Denita Rai, KERRY [address] [place] [address] [place] [address] Specialty Software Project Manager Hematology/Oncology 10/25/21 Journeyman Carpenter Relationship Specialty Start Date End Date Christina Azul MD [address] [place] [address] PCP - General Family Medicine 07/03/21 Sofie Diana MD [address] [place] [address] Primary Staff Physician Cardiology 07/03/21 Verito Whelan MD [address] [place], [place] [id number] Referring Pulmonary Disease 10/04/21 Nina Grigsby MD [address] [facility] [place] [address] Physician Hematology/Oncology 10/25/21 Patricia Miller, BRASS CUTTER.ELDERLY CAREGIVER [address] [facility] [place] [address] Nurse Practitioner Hematology/Oncology 10/25/21 Denita Rai, KERRY [address] [facility] [place] [address] Specialty Software Project Manager Hematology/Oncology 10/25/21 Journeyman Carpenter Relationship Specialty Start Date End Date Christina Azul MD [address] [place] [address] PCP - General Family Medicine 07/03/21 Sofie Diana MD [address] [place] [address] Primary Staff Physician Cardiology 07/03/21 Verito Whelan MD [address] [place] [address] Referring Pulmonary Disease 10/04/21 Nina Grigsby MD [address] [facility] [place] [address] Physician Hematology/Oncology 10/25/21 Patricia Miller, BRASS CUTTER.[address] [place] [address] Nurse Practitioner Hematology/Oncology 10/25/21 Denita Rai, KERRY [address] [place] [address] [place] [address] Specialty Software Project Manager Hematology/Oncology 10/25/21 Journeyman Carpenter Relationship Specialty Start Date End Date Christina Azul MD [address] [place] [id number] PCP - General Family Medicine 07/03/21 Sofie Diana MD [address] [place], [place] [id number] Primary Staff Physician Cardiology 07/03/21 Verito Whelan MD [address] [place], [place] [id number] Referring Pulmonary Disease 10/04/21 Nina Grigsby MD [address] [facility] [place] [address] Physician Hematology/Oncology 10/25/21 Patricia Miller APRN.ELDERLY CAREGIVER [address] [place] [address] [place] [address] Nurse Practitioner Hematology/Oncology 10/25/21 Denita Rai, RN [address] [place] [address] [place] [address] Specialty Software Project Manager Hematology/Oncology 10/25/21 Journeyman Carpenter Relationship Specialty Start Date End Date Christina Azul MD [address] [place] [phone] PCP - General Family Medicine 07/03/21 Sofie Diana MD [address] [place] [address] Primary Staff Physician Cardiology 07/03/21 Verito Whelan MD [address] [place] [address] Referring Pulmonary Disease 10/04/21 Nina Grigsby MD [address] [facility] [place] [address] Physician Hematology/Oncology 10/25/21 Patricia Miller, BRASS CUTTER.ELDERLY CAREGIVER [address] [facility] [place] [address] Nurse Practitioner Hematology/Oncology 10/25/21 Denita Rai, RN [address] [place] [address] [place] [address] Specialty Software Project Manager Hematology/Oncology 10/25/21 Journeyman Carpenter Relationship Specialty Start Date End Date Christina Azul MD [address] [place] [address] PCP - General Family Medicine 07/03/21 Sofie Diana MD [address] [place] [address] Primary Staff Physician Cardiology 07/03/21 Verito Whelan MD [address] [place] [address] Referring Pulmonary Disease 10/04/21 Nina Grigsby MD [address] [facility] [place] [address] Physician Hematology/Oncology 10/25/21 Patricia Miller, BRASS CUTTER.ELDERLY CAREGIVER [address] [facility] [place] [address] Nurse Practitioner Hematology/Oncology 10/25/21 Denita Rai, KERRY [address] [facility] [place] [address] Specialty Software Project Manager Hematology/Oncology 10/25/21 Journeyman Carpenter Relationship Specialty Start Date End Date Christina Azul MD [address] [place] [address] PCP - General Family Medicine 07/03/21 Sofie Diana MD [address] [place] [address] Primary Staff Physician Cardiology 07/03/21 Verito Whelan MD [address] [place], [place] [phone] Referring Pulmonary Disease 10/04/21 Nina Grigsby MD [address] [facility] [place] [address] Physician Hematology/Oncology 10/25/21 Patricia Miller APRN.ELDERLY CAREGIVER [address] [facility] [place] [address] Nurse Practitioner Hematology/Oncology 10/25/21 Denita Rai, KERRY [address] [facility] [place] [address] Specialty Software Project Manager Hematology/Oncology 10/25/21 Team Status: Active Member Role Status Dates Christina Azul MD Primary Care Provider Active Team Status: Inactive Member Role Status Dates Christina Azul MD Primary Care Provider Active Sapna Angulo APRN Emergency Provider Active Journeyman Carpenter Relationship Specialty Start Date End Date Christina Azul MD [address] [place] [address] PCP - General Family Medicine 07/03/21 Sofie Diana MD [address] [place] [address] Primary Staff Physician Cardiology 07/03/21 Verito Whelan MD [address] [place] [address] Referring Pulmonary Disease 10/04/21 Nina Grigsby MD [address] [facility] [place] [address] Physician Hematology/Oncology 10/25/21 Patricia Miller, BRASS CUTTER.ELDERLY CAREGIVER [address] [facility] [place] [address] Nurse Practitioner Hematology/Oncology 10/25/21 Denita Rai, RN [address] [place] [address] [place] [address] Specialty Software Project Manager Hematology/Oncology 10/25/21 Journeyman Carpenter Relationship Specialty Start Date End Date Christina Azul MD [address] [place] [address] PCP - General Family Medicine 07/03/21 Sofie Diana MD [address] [place] [address] Primary Staff Physician Cardiology 07/03/21 Verito Whelan MD [address] [place] [address] Referring Pulmonary Disease 10/04/21 Nina Grigsby MD [address] [facility] [place] [address] Physician Hematology/Oncology 10/25/21 Patricia Miller, BRASS CUTTER.ELDERLY CAREGIVER [address] [facility] [place] [address] Nurse Practitioner Hematology/Oncology 10/25/21 Denita Rai, RN [address] [facility] [place] [address] Specialty Software Project Manager Hematology/Oncology 10/25/21 Minna Madrigal LSW Poultry Veterinarian 01/08/23 Journeyman Carpenter Relationship Specialty Start Date End Date Christina Azul MD [address] [place] [address] PCP - General Family Medicine 07/03/21 Sofie Diana MD [address] [place] [address] Primary Staff Physician Cardiology 07/03/21 Verito Whelan MD [address] [place] [address] Referring Pulmonary Disease 10/04/21 Nina Grigsby MD [address] [facility] [place] [address] Physician Hematology/Oncology 10/25/21 Patricia Miller, BRASS CUTTER.ELDERLY CAREGIVER [address] [facility] [place] [address] Nurse Practitioner Hematology/Oncology 10/25/21 Denita Rai RN [address] [place] [address] [place] [address] Specialty Software Project Manager Hematology/Oncology 10/25/21 Minna Madrigal LSW Poultry Veterinarian 01/08/23 Journeyman Carpenter Relationship Specialty Start Date End Date Christina Azul MD [address] [place] [address] PCP - General Family Medicine 07/03/21 Sofie Diana MD [address] [place] [address] Primary Staff Physician Cardiology 07/03/21 Verito Whelan MD [address] [place] [address] Referring Pulmonary Disease 10/04/21 Nina Grigsby MD [address] [facility] [place] [address] Physician Hematology/Oncology 10/25/21 Patricia Miller, BRASS CUTTER.ELDERLY CAREGIVER [address] [facility] [place] [address] Nurse Practitioner Hematology/Oncology 10/25/21 Denita Rai, KERRY [address] [place] [address] [place] [address] Specialty Software Project Manager Hematology/Oncology 10/25/21 Minna Madrigal LSW Poultry Veterinarian 01/08/23 Journeyman Carpenter Relationship Specialty Start Date End Date Christina Azul MD [address] [place] [address] PCP - General Family Medicine 07/03/21 Sofie Diana MD [address] [place] [address] Primary Staff Physician Cardiology 07/03/21 Verito Whelan MD [address] [place] [address] Referring Pulmonary Disease 10/04/21 Nina Grigsby MD [address] [facility] [place] [address] Physician Hematology/Oncology 10/25/21 Patricia Miller, BRASS CUTTER.ELDERLY CAREGIVER [address] [facility] [place] [address] Nurse Practitioner Hematology/Oncology 10/25/21 Denita Rai, KERRY [address] [facility] [place] [address] Specialty Software Project Manager Hematology/Oncology 10/25/21 Minna Madrigal LSW Poultry Veterinarian 01/08/23 Journeyman Carpenter Relationship Specialty Start Date End Date Christina Azul MD [address] [place] [address] PCP - General Family Medicine 07/03/21 Sofie Diana MD [address] [place] [address] Primary Staff Physician Cardiology 07/03/21 Verito Whelan MD [address] [facility] [place], [place] [address] Referring Pulmonary Disease 10/04/21 Nina Grigsby MD [address] [place] [address] [place] [address] Physician Hematology/Oncology 10/25/21 Patricia Miller APRN.ELDERLY CAREGIVER [address] [place] [address] [place] [address] Nurse Practitioner Hematology/Oncology 10/25/21 Denita Rai, KERRY [address] [facility] [place] [address] Specialty Software Project Manager Hematology/Oncology 10/25/21 Minna Madrigal LSW Poultry Veterinarian 01/08/23 Journeyman Carpenter Relationship Specialty Start Date End Date Christina Azul MD [address] [place] [address] PCP - General Family Medicine 07/03/21 Sofie Diana MD [address] [place] [id number] Primary Staff Physician Cardiology 07/03/21 Verito Whelan MD [address] [place] [address] Referring Pulmonary Disease 10/04/21 Nina Grigsby MD [address] [place] [address] [address] [place] [id number] Physician Hematology/Oncology 10/25/21 Patricia Miller APRN.[facility] [address] [place] [address] [place] [address] Nurse Practitioner Hematology/Oncology 10/25/21 Denita Rai, KERRY [address] [place] [address] [place] [address] Specialty Software Project Manager Hematology/Oncology 10/25/21 Minna Madrigal LSW Poultry Veterinarian 01/08/23 Journeyman Carpenter Relationship Specialty Start Date End Date Christina Azul MD [address] [place] [id number] PCP - General Family Medicine 07/03/21 Sofie Diana MD [address] [place] [id number] Primary Staff Physician Cardiology 07/03/21 Verito Whelan MD [address] [place] [address] Referring Pulmonary Disease 10/04/21 Nina Grigsby MD [address] [facility] [place] [address] Physician Hematology/Oncology 10/25/21 Patricia Miller, BRASS CUTTER.ELDERLY CAREGIVER [address] [facility] [place] [address] Nurse Practitioner Hematology/Oncology 10/25/21 Denita Rai, RN [address] [facility] [place] [address] Specialty Software Project Manager Hematology/Oncology 10/25/21 Minna Madrigal LSW Poultry Veterinarian 01/08/23 Journeyman Carpenter Relationship Specialty Start Date End Date Christina Azul MD [address] [place] [address] PCP - General Family Medicine 07/03/21 Sofie Diana MD [address] [place] [address] Primary Staff Physician Cardiology 07/03/21 Verito Whelan MD [address] [place] [address] Referring Pulmonary Disease 10/04/21 Nina Grigsby MD [address] [facility] [place] [address] Physician Hematology/Oncology 10/25/21 Patricia Miller, BRASS CUTTER.ELDERLY CAREGIVER [address] [facility] [place] [address] Nurse Practitioner Hematology/Oncology 10/25/21 Denita Rai, RN [address] [facility] [place] [address] Specialty Software Project Manager Hematology/Oncology 10/25/21 Minna Madrigal LSW Poultry Veterinarian 01/08/23 Journeyman Carpenter Relationship Specialty Start Date End Date Christina Azul MD [address] [place] [address] PCP - General Family Medicine 07/03/21 Sofie Diana MD [address] [place], [place] 7182195 Primary Staff Physician Cardiology 07/03/21 Verito Whelan MD [address] [place], [place] 5880095 Referring Pulmonary Disease 10/04/21 Nina Grigsby MD [address] [facility] [place] [address] Physician Hematology/Oncology 10/25/21 Patricia Miller APRN.ELDERLY CAREGIVER [address] [facility] [place] [address] Nurse Practitioner Hematology/Oncology 10/25/21 Denita Rai, KERRY [address] [facility] [place] [address] Specialty Software Project Manager Hematology/Oncology 10/25/21 Minna Madrigal LSW Poultry Veterinarian 01/08/23 Journeyman Carpenter Relationship Specialty Start Date End Date Christina Azul MD [address] [place] [address] PCP - General Family Medicine 07/03/21 Sofie Diana MD [address] [place], [place] 1698695 Primary Staff Physician Cardiology 07/03/21 Verito Whelan MD [address] [place], [place] [phone] Referring Pulmonary Disease 10/04/21 Nina Grigsby MD [address] [facility] [place] [address] Physician Hematology/Oncology 10/25/21 Patricia Miller, BRASS CUTTER.ELDERLY CAREGIVER [address] [facility] [place] [address] Nurse Practitioner Hematology/Oncology 10/25/21 Denita Rai, KERRY [address] [facility] [address] [place], [place] 3540870 Specialty Software Project Manager Hematology/Oncology 10/25/21 Minna Madrigal LSW Poultry Veterinarian 01/08/23 Journeyman Carpenter Relationship Specialty Start Date End Date Christina Azul MD [address] [place] [address] PCP - General Family Medicine 07/03/21 Sofie Diana MD [address] [place], [place] 9083995 Primary Staff Physician Cardiology 07/03/21 Verito Whelan MD [address] [place] [address] Referring Pulmonary Disease 10/04/21 Nina Grigsby MD [address] [facility] [place] [address] Physician Hematology/Oncology 10/25/21 Patricia Miller, BRASS CUTTER.ELDERLY CAREGIVER [address] [place] [address] [place] [address] Nurse Practitioner Hematology/Oncology 10/25/21 Denita Rai, KERRY [address] [facility] [place] [address] Specialty Software Project Manager Hematology/Oncology 10/25/21 Minna Madrigal LSW Poultry Veterinarian 01/08/23 Journeyman Carpenter Relationship Specialty Start Date End Date Christina Azul MD [address] [place] [address] PCP - General Family Medicine 07/03/21 Sofie Diana MD [address] [place] [address] Primary Staff Physician Cardiology 07/03/21 Verito Whelan MD [address] [place] [address] Referring Pulmonary Disease 10/04/21 Nina Grigsby MD [address] [place] [address] [place] [address] Physician Hematology/Oncology 10/25/21 Patricia Miller APRN.ELDERLY CAREGIVER [address] [place] [address] [place] [address] Nurse Practitioner Hematology/Oncology 10/25/21 Denita Rai, KERRY [address] [facility] [place] [address] Specialty Software Project Manager Hematology/Oncology 10/25/21 Minna Madrigal LSW Poultry Veterinarian 01/08/23 Journeyman Carpenter Relationship Specialty Start Date End Date Christina Azul MD [address] [place] [address] PCP - General Family Medicine 07/03/21 Sofie Diana MD [address] [place] [address] Primary Staff Physician Cardiology 07/03/21 Verito Whelan MD [address] [place], [place] [phone] Referring Pulmonary Disease 10/04/21 Nina Grigsby MD [address] [place] [address] [place] [address] Physician Hematology/Oncology 10/25/21 Patricia Miller APRN.ELDERLY CAREGIVER [address] [place] [address] [address] [place] [id number] Nurse Practitioner Hematology/Oncology 10/25/21 Denita Rai, KERRY [address] [place] [address] [place] [address] Specialty Software Project Manager Hematology/Oncology 10/25/21 Minna Madrigal LSW Poultry Veterinarian 01/08/23 Journeyman Carpenter Relationship Specialty Start Date End Date Christina Azul MD [address] [place] [address] PCP - General Family Medicine 07/03/21 Sofie Diana MD [address] [place] [address] Primary Staff Physician Cardiology 07/03/21 Verito Whelan MD [address] [place] [address] Referring Pulmonary Disease 10/04/21 Nina Grigsby MD [address] [place] [address] [place] [address] Physician Hematology/Oncology 10/25/21 Patricia Miller, BRASS CUTTER.ELDERLY CAREGIVER [address] [place] [address] [place] [address] Nurse Practitioner Hematology/Oncology 10/25/21 Denita Rai, KERRY [address] [facility] [place] [address] Specialty Software Project Manager Hematology/Oncology 10/25/21 Minna Madrigal LSW Poultry Veterinarian 01/08/23 Journeyman Carpenter Relationship Specialty Start Date End Date Christina Azul MD [address] [place] [address] PCP - General Family Medicine 07/03/21 Sofie Diana MD [address] [place] [id number] Primary Staff Physician Cardiology 07/03/21 Verito Whelan MD [address] [place] [id number] Referring Pulmonary Disease 10/04/21 Nina Grigsby MD [address] [place] [address] [place] [address] Physician Hematology/Oncology 10/25/21 Patricia Miller, BRASS CUTTER.ELDERLY CAREGIVER [address] [facility] [place] [address] Nurse Practitioner Hematology/Oncology 10/25/21 Denita Rai, KERRY [address] [facility] [place] [address] Specialty Software Project Manager Hematology/Oncology 10/25/21 Minna Madrigal LSW Poultry Veterinarian 01/08/23 Journeyman Carpenter Relationship Specialty Start Date End Date Christina Azul MD [address] [place] [address] PCP - General Family Medicine 07/03/21 Sofie Diana MD [address] [place], [place] 2433395 Primary Staff Physician Cardiology 07/03/21 Verito Whelan MD [address] [place], [place] 5604195 Referring Pulmonary Disease 10/04/21 Nina Grigsby MD [address] [facility] [place] [address] Physician Hematology/Oncology 10/25/21 Patricia Miller APRN.ELDERLY CAREGIVER [address] [facility] [place] [address] Nurse Practitioner Hematology/Oncology 10/25/21 Denita Rai, KERRY [address] [facility] [place] [address] Specialty Software Project Manager Hematology/Oncology 10/25/21 Minna Madrigal LSW Poultry Veterinarian 01/08/23 Journeyman Carpenter Relationship Specialty Start Date End Date Christina Azul MD [address] [place] [address] PCP - General Family Medicine 07/03/21 Sofie Diana MD [address] [place], [place] 2321695 Primary Staff Physician Cardiology 07/03/21 Verito Whelan MD [address] [place], [place] [phone] Referring Pulmonary Disease 10/04/21 Nina Grigsby MD [address] [facility] [place] [address] Physician Hematology/Oncology 10/25/21 Patricia Miller, OZZIE.ELDERLY CAREGIVER [address] [facility] [place] [address] Nurse Practitioner Hematology/Oncology 10/25/21 Denita Rai, KERRY [address] [facility] [place] [address] Specialty Software Project Manager Hematology/Oncology 10/25/21 Minna Madrigal LSW Poultry Veterinarian 01/08/23 Journeyman Carpenter Relationship Specialty Start Date End Date Christina Azul MD [address] [place] [address] PCP - General Family Medicine 07/03/21 Sofie Diana MD [address] [place] [address] Primary Staff Physician Cardiology 07/03/21 Verito Whelan MD [address] [place], [place] [phone] Referring Pulmonary Disease 10/04/21 Nina Grigsby MD [address] [place] [address] [place] [address] Physician Hematology/Oncology 10/25/21 Patricia Miller, BRASS CUTTER.ELDERLY CAREGIVER [address] [facility] [place] [address] Nurse Practitioner Hematology/Oncology 10/25/21 Denita Rai, KERRY [address] [facility] [place] [address] Specialty Software Project Manager Hematology/Oncology 10/25/21 Minna Madrigal LSW Poultry Veterinarian 01/08/23 Journeyman Carpenter Relationship Specialty Start Date End Date Christina Azul MD [address] [place] [address] PCP - General Family Medicine 07/03/21 Sofie Diaan MD [address] [place] [address] Primary Staff Physician Cardiology 07/03/21 Verito Whelan MD [address] [place] [address] Referring Pulmonary Disease 10/04/21 Nina Grigsby MD [address] [place] [address] [place] [address] Physician Hematology/Oncology 10/25/21 Patricia Miller, BRASS CUTTER.ELDERLY CAREGIVER [address] [place] [address] [place] [address] Nurse Practitioner Hematology/Oncology 10/25/21 Denita Rai, KERRY [address] [facility] [place] [address] Specialty Software Project Manager Hematology/Oncology 10/25/21 Minna Madrigal LSW Poultry Veterinarian 01/08/23 Journeyman Carpenter Relationship Specialty Start Date End Date Christina Azul MD [address] [place] [address] PCP - General Family Medicine 07/03/21 Sofie Diana MD [address] [place], [place] [id number] Primary Staff Physician Cardiology 07/03/21 Verito Whelan MD [address] [place], [place] [id number] Referring Pulmonary Disease 10/04/21 Nina Grigsby MD [address] [facility] [address] [place] [id number] Physician Hematology/Oncology 10/25/21 Patricia Miller APRN.ELDERLY CAREGIVER [address] [facility] [address] [place] [id number] Nurse Practitioner Hematology/Oncology 10/25/21 Denita Rai, KERRY [address] [facility] [place] [address] Specialty Software Project Manager Hematology/Oncology 10/25/21 Minna Madrigal LSW Poultry Veterinarian 01/08/23 Journeyman Carpenter Relationship Specialty Start Date End Date Christina Azul MD [address] [place] [address] PCP - General Family Medicine 07/03/21 Sofie Diana MD [address] [place] [address] Primary Staff Physician Cardiology 07/03/21 Verito Whelan MD [address] [place] [address] Referring Pulmonary Disease 10/04/21 Nina Grigsby MD [address] [place] [address] [place] [address] Physician Hematology/Oncology 10/25/21 Patricia Miller APRN.ELDERLY CAREGIVER [address] [place] [address] [place] [address] Nurse Practitioner Hematology/Oncology 10/25/21 Denita Rai, KERRY [address] [place] [address] [place] [address] Specialty Software Project Manager Hematology/Oncology 10/25/21 Minna Madrigal LSW Poultry Veterinarian 01/08/23 Journeyman Carpenter Relationship Specialty Start Date End Date Christina Azul MD [address] [place] [id number] PCP - General Family Medicine 07/03/21 Sofie Diana MD [address] [place] [address] Primary Staff Physician Cardiology 07/03/21 Verito Whelan MD [address] [place] [id number] Referring Pulmonary Disease 10/04/21 Nina Grigsby MD [address] [place] [address] [place] [address] Physician Hematology/Oncology 10/25/21 Patricia Miller, BRASS CUTTER.ELDERLY CAREGIVER [address] [facility] [place] [address] Nurse Practitioner Hematology/Oncology 10/25/21 Denita Rai, RN [address] [facility] [place] [address] Specialty Software Project Manager Hematology/Oncology 10/25/21 Minna Madrigal LSW Poultry Veterinarian 01/08/23 Journeyman Carpenter Relationship Specialty Start Date End Date Christina Azul MD [address] [place] [address] PCP - General Family Medicine 07/03/21 Sofie Diana MD [address] [place], [place] [id number] Primary Staff Physician Cardiology 07/03/21 Verito Whelan MD [address] [place], [place] [id number] Referring Pulmonary Disease 10/04/21 Nina Grigsby MD [address] [facility] [place] [address] Physician Hematology/Oncology 10/25/21 Patricia Miller, BRASS CUTTER.ELDERLY CAREGIVER [address] [facility] [place] [address] Nurse Practitioner Hematology/Oncology 10/25/21 Denita Rai, RN [address] [facility] [place] [address] Specialty Software Project Manager Hematology/Oncology 10/25/21 Minna Madrigal LSW Poultry Veterinarian 01/08/23 Journeyman Carpenter Relationship Specialty Start Date End Date Christina Azul MD [address] [place] [address] PCP - General Family Medicine 07/03/21 Sofie Diana MD [address] [place] [address] Primary Staff Physician Cardiology 07/03/21 Verito Whelan MD [address] [place], [place] [id number] Referring Pulmonary Disease 10/04/21 Nina Grigsby MD [address] [facility] [place] [address] Physician Hematology/Oncology 10/25/21 Patricia Miller, BRASS CUTTER.ELDERLY CAREGIVER [address] [facility] [place] [address] Nurse Practitioner Hematology/Oncology 10/25/21 Denita Rai, KERRY [address] [facility] [place] [address] Specialty Software Project Manager Hematology/Oncology 10/25/21 Minna Madrigal LSW Poultry Veterinarian 01/08/23 Journeyman Carpenter Relationship Specialty Start Date End Date Christina Azul MD [address] [place] [address] PCP - General Family Medicine 07/03/21 Sofie Diana MD [address] [place] [address] Primary Staff Physician Cardiology 07/03/21 Verito Whelan MD [address] [place], [place] [phone] Referring Pulmonary Disease 10/04/21 Nina Grigsby MD [address] [place] [address] [place] [address] Physician Hematology/Oncology 10/25/21 Patricia Miller, BRASS CUTTER.ELDERLY CAREGIVER [address] [facility] [place] [address] Nurse Practitioner Hematology/Oncology 10/25/21 Denita Rai, KERRY [address] [facility] [place] [address] Specialty Software Project Manager Hematology/Oncology 10/25/21 Minna Madrigal LSW Poultry Veterinarian 01/08/23 Journeyman Carpenter Relationship Specialty Start Date End Date Christina Azul MD [address] [place] [address] PCP - General Family Medicine 07/03/21 Sofie Diana MD [address] [place] [address] Primary Staff Physician Cardiology 07/03/21 Verito Whelan MD [address] [place] [address] Referring Pulmonary Disease 10/04/21 Nina Grigsby MD [address] [facility] [place] [address] Physician Hematology/Oncology 10/25/21 Patricia Miller, BRASS CUTTER.ELDERLY CAREGIVER [address] [facility] [place] [address] Nurse Practitioner Hematology/Oncology 10/25/21 Denita Rai, KERRY [address] [place] [address] [place] [address] Specialty Software Project Manager Hematology/Oncology 10/25/21 Minna Madrigal LSW Poultry Veterinarian 01/08/23 Journeyman Carpenter Relationship Specialty Start Date End Date Christina Azul MD [address] [place] [address] PCP - General Family Medicine 07/03/21 Sofie Diana MD [address] [place] [address] Primary Staff Physician Cardiology 07/03/21 Verito Whelan MD [address] [place] [address] Referring Pulmonary Disease 10/04/21 Nina Grigsby MD [address] [place] [address] [place] [address] Physician Hematology/Oncology 10/25/21 Patricia Miller APRN.ELDERLY CAREGIVER [address] [place] [address] [place] [address] Nurse Practitioner Hematology/Oncology 10/25/21 Denita Rai, KERRY [address] [place] [address] [place] [address] Specialty Software Project Manager Hematology/Oncology 10/25/21 Minna Madrigal LSW Poultry Veterinarian 01/08/23 Journeyman Carpenter Relationship Specialty Start Date End Date Christina Azul MD [address] [place] [phone] PCP - General Family Medicine 07/03/21 Sofie Diana MD [address] [place] [address] Primary Staff Physician Cardiology 07/03/21 Verito Whelan MD [address] [place] [address] Referring Pulmonary Disease 10/04/21 Nina Grigsby MD [address] [facility] [address] [place] [phone] Physician Hematology/Oncology 10/25/21 Patricia Miller APRN.ELDERLY CAREGIVER [address] [place] [address] [address] [place] [phone] Nurse Practitioner Hematology/Oncology 10/25/21 Denita Rai, KERRY [address] [place] [address] [place] [address] Specialty Software Project Manager Hematology/Oncology 10/25/21 Journeyman Carpenter Relationship Specialty Start Date End Date Christina Azul MD [address] [place] [phone] PCP - General Family Medicine 07/03/21 Sofie Diana MD [address] [place] [address] Primary Staff Physician Cardiology 07/03/21 Verito Whelan MD [address] [place], [place] [phone] Referring Pulmonary Disease 10/04/21 Nina Grigsby MD [address] [place] [address] [place] [address] Physician Hematology/Oncology 10/25/21 Patricia Miller, BRASS CUTTER.ELDERLY CAREGIVER [address] [place] [address] [place] [address] Nurse Practitioner Hematology/Oncology 10/25/21 Denita Rai, KERRY [address] [facility] [place] [address] Specialty Software Project Manager Hematology/Oncology 10/25/21 Minna Madrigal LSW Poultry Veterinarian 01/08/23 Estella Fish, BRASS CUTTER.ELDERLY CAREGIVER [address] [place] [address] [place] [address] HOSPICE & PALLIATIVE MEDICINE 05/22/23 Julieth Tapia RN Specialty Software Project Manager HOSPICE & PALLIATIVE MEDICINE 05/22/23 Journeyman Carpenter Relationship Specialty Start Date End Date Christina Azul MD [address] [place] [address] PCP - General Family Medicine 07/03/21 Sofie Diana MD [address] [place], [place] 8029995 Primary Staff Physician Cardiology 07/03/21 Verito Whelan MD [address] [place] [address] Referring Pulmonary Disease 10/04/21 Nina Grigsby MD [address] [place] [address] [address] [place], [place] [id number] Physician Hematology/Oncology 10/25/21 Patricia Miller, BRASS CUTTER.ELDERLY CAREGIVER [address] [place] [address] [place] [address] Nurse Practitioner Hematology/Oncology 10/25/21 Denita Rai, RN [address] [facility] [place] [address] Specialty Software Project Manager Hematology/Oncology 10/25/21 Minna Madrigal LSW Poultry Veterinarian 01/08/23 Estella Fish, BRASS CUTTER.ELDERLY CAREGIVER [address] [place] [address] [place] [address] HOSPICE & PALLIATIVE MEDICINE 05/22/23 Julieth Tapia RN Specialty Software Project Manager HOSPICE & PALLIATIVE MEDICINE 05/22/23 Journeyman Carpenter Relationship Specialty Start Date End Date Christina Azul MD [address] [place] [address] PCP - General Family Medicine 07/03/21 Sofie Diana MD [address] [place] [address] Primary Staff Physician Cardiology 07/03/21 Verito Whelan MD [address] [place] [address] Referring Pulmonary Disease 10/04/21 Nina Grigsby MD [address] [place] [address] [place] [address] Physician Hematology/Oncology 10/25/21 Patricia Miller, BRASS CUTTER.ELDERLY CAREGIVER [address] [place] [address] [place] [address] Nurse Practitioner Hematology/Oncology 10/25/21 Denita Rai, KERRY [address] [place] [address] [place] [address] Specialty Software Project Manager Hematology/Oncology 10/25/21 Minna Madrigal LSW Poultry Veterinarian 01/08/23 Estella Fish, BRASS CUTTER.ELDERLY CAREGIVER [address] [place] [address] [place] [address] HOSPICE & PALLIATIVE MEDICINE 05/22/23 Julieth Tapia RN Specialty Software Project Manager HOSPICE & PALLIATIVE MEDICINE 05/22/23 Journeyman Carpenter Relationship Specialty Start Date End Date Christina Azul MD [address] [place] [address] PCP - General Family Medicine 07/03/21 Sofie Diana MD [address] [place] [address] Primary Staff Physician Cardiology 07/03/21 Verito Whelan MD [address] [place] [address] Referring Pulmonary Disease 10/04/21 Nina Grigsby MD [address] [place] [address] [place] [address] Physician Hematology/Oncology 10/25/21 Patricia Miller, BRASS CUTTER.ELDERLY CAREGIVER [address] [place] [address] [place] [address] Nurse Practitioner Hematology/Oncology 10/25/21 Denita Rai, KERRY [address] [place] [address] [place] [address] Specialty Software Project Manager Hematology/Oncology 10/25/21 Minna Madrigal LSW Poultry Veterinarian 01/08/23 Estella Fish, BRASS CUTTER.ELDERLY CAREGIVER [address] [place] [address] [place] [id number] HOSPICE & PALLIATIVE MEDICINE 05/22/23 Julieth Tapia RN Specialty Software Project Manager HOSPICE & PALLIATIVE MEDICINE 05/22/23 Journeyman Carpenter Relationship Specialty Start Date End Date Christina Azul MD [address] [place] [address] PCP - General Family Medicine 07/03/21 Sofie Diana MD [address] [place] [address] Primary Staff Physician Cardiology 07/03/21 Verito Whelan MD [address] [place], [place] [id number] Referring Pulmonary Disease 10/04/21 Nina Grigsby MD [address] [place] [address] [place] [address] Physician Hematology/Oncology 10/25/21 Patricia Miller, BRASS CUTTER.ELDERLY CAREGIVER [address] [place] [address] [place] [address] Nurse Practitioner Hematology/Oncology 10/25/21 Denita Rai, KERRY [address] [place] [address] [place] [address] Specialty Software Project Manager Hematology/Oncology 10/25/21 Minna Madrigal LSW Poultry Veterinarian 01/08/23 Estella Fish, BRASS CUTTER.ELDERLY CAREGIVER [address] [facility] [place] [address] HOSPICE & PALLIATIVE MEDICINE 05/22/23 Julieth Tapia, RN Specialty Software Project Manager HOSPICE & PALLIATIVE MEDICINE 05/22/23 Journeyman Carpenter Relationship Specialty Start Date End Date Christina Azul MD [address] [place] [address] PCP - General Family Medicine 07/03/21 Sofie Diana MD [address] [place] [address] Primary Staff Physician Cardiology 07/03/21 Verito Whelan MD [address] [place], [place] [phone] Referring Pulmonary Disease 10/04/21 Nina Grigsby MD [address] [place] [address] [place] [address] Physician Hematology/Oncology 10/25/21 Patricia Miller, BRASS CUTTER.ELDERLY CAREGIVER [address] [facility] [place] [address] Nurse Practitioner Hematology/Oncology 10/25/21 Denita Rai, KERRY [address] [facility] [place] [address] Specialty Software Project Manager Hematology/Oncology 10/25/21 Minna Madrigal LSW Poultry Veterinarian 01/08/23 Estella Fish, BRASS CUTTER.ELDERLY CAREGIVER [address] [facility] [place] [address] HOSPICE & PALLIATIVE MEDICINE 05/22/23 Julieth Tapia RN Specialty Software Project Manager HOSPICE & PALLIATIVE MEDICINE 05/22/23 Journeyman Carpenter Relationship Specialty Start Date End Date Christina Azul MD [address] [place] [phone] PCP - General Family Medicine 07/03/21 Sofie Diana MD [address] [place] [id number] Primary Staff Physician Cardiology 07/03/21 Verito Whelan MD [address] [place] [id number] Referring Pulmonary Disease 10/04/21 Nina Grigsby MD [address] [place] [address] [place] [address] Physician Hematology/Oncology 10/25/21 Patricia Miller, BRASS CUTTER.ELDERLY CAREGIVER [address] [place] [address] [place] [address] Nurse Practitioner Hematology/Oncology 10/25/21 Denita Rai, KERRY [address] [place] [address] [place] [address] Specialty Software Project Manager Hematology/Oncology 10/25/21 Minna Madrigal LSW Poultry Veterinarian 01/08/23 Estella Fish, BRASS CUTTER.ELDERLY CAREGIVER [address] [place] [address] [place] [address] HOSPICE & PALLIATIVE MEDICINE 05/22/23 Julieth Tapia RN Specialty Software Project Manager HOSPICE & PALLIATIVE MEDICINE 05/22/23 Journeyman Carpenter Relationship Specialty Start Date End Date Christina Azul MD [address] [place] [address] PCP - General Family Medicine 07/03/21 Sofie Diana MD [address] [place] [address] Primary Staff Physician Cardiology 07/03/21 Verito Whelan MD [address] [place] [address] Referring Pulmonary Disease 10/04/21 Nina Grigsby MD [address] [place] [address] [place] [address] Physician Hematology/Oncology 10/25/21 Patricia Miller, OZZIE.ELDERLY CAREGIVER [address] [place] [address] [place] [address] Nurse Practitioner Hematology/Oncology 10/25/21 Denita Rai, KERRY [address] [place] [address] [place] [address] Specialty Software Project Manager Hematology/Oncology 10/25/21 Minna Madrigal LSW Poultry Veterinarian 01/08/23 Estella Fish, BRASS CUTTER.ELDERLY CAREGIVER [address] [place] [address] [place] [address] HOSPICE & PALLIATIVE MEDICINE 05/22/23 Julieth Tapia, KERRY Specialty Software Project Manager HOSPICE & PALLIATIVE MEDICINE 05/22/23 Journeyman Carpenter Relationship Specialty Start Date End Date Christina Azul MD [address] [place] [address] PCP - General Family Medicine 07/03/21 Sofie Diana MD [address] [place], [place] 0902195 Primary Staff Physician Cardiology 07/03/21 Verito Whelan MD [address] [place], [place] [id number] Referring Pulmonary Disease 10/04/21 Nina Grigsby MD [address] [facility] [place] [address] Physician Hematology/Oncology 10/25/21 Patricia Miller, BRASS CUTTER.ELDERLY CAREGIVER [address] [facility] [place] [address] Nurse Practitioner Hematology/Oncology 10/25/21 Denita Rai, KERRY [address] [facility] [place] [address] Specialty Software Project Manager Hematology/Oncology 10/25/21 Minna Madrigal LSW Poultry Veterinarian 01/08/23 Estella Fish, BRASS CUTTER.ELDERLY CAREGIVER [address] [facility] [place] [address] HOSPICE & PALLIATIVE MEDICINE 05/22/23 Julieth Tapia RN Specialty Software Project Manager HOSPICE & PALLIATIVE MEDICINE 05/22/23 Journeyman Carpenter Relationship Specialty Start Date End Date Christina Azul MD [address] [place] [address] PCP - General Family Medicine 07/03/21 Sofie Diana MD [address] [place] [address] Primary Staff Physician Cardiology 07/03/21 Verito Whelan MD [address] [place] [address] Referring Pulmonary Disease 10/04/21 Nina Grigsby MD [address] [facility] [place] [address] Physician Hematology/Oncology 10/25/21 Patricia Miller, BRASS CUTTER.ELDERLY CAREGIVER [address] [place] [address] [place] [address] Nurse Practitioner Hematology/Oncology 10/25/21 Denita Rai, KERRY [address] [facility] [place] [address] Specialty Software Project Manager Hematology/Oncology 10/25/21 Minna Madrigal LSW Poultry Veterinarian 01/08/23 sEtella Fish, BRASS CUTTER.ELDERLY CAREGIVER [address] [place] [address] [place] [address] HOSPICE & PALLIATIVE MEDICINE 05/22/23 Julieth Tapia RN Specialty Software Project Manager HOSPICE & PALLIATIVE MEDICINE 05/22/23 Journeyman Carpenter Relationship Specialty Start Date End Date Enrique Esposito, BRASS CUTTER.ELDERLY CAREGIVER [address] [place] [address] PCP - General 08/15/23 Sofie Diana MD [address] [place] [address] Primary Staff Physician Cardiology 07/03/21 Verito Whelan MD [address] [place] [address] Referring Pulmonary Disease 10/04/21 Nina Grigsby MD [address] [place] [address] [place] [address] Physician Hematology/Oncology 10/25/21 Patricia Miller, BRASS CUTTER.ELDERLY CAREGIVER [address] [place] [address] [place] [address] Nurse Practitioner Hematology/Oncology 10/25/21 Denita Rai, KERRY [address] [place] [address] [place] [address] Specialty Software Project Manager Hematology/Oncology 10/25/21 Minna Madrigal LSW Poultry Veterinarian 01/08/23 Estella Fish, BRASS CUTTER.ELDERLY CAREGIVER [address] [place] [address] [place] [address] Hospice & Palliative Medicine 05/22/23 Julieth Tapia, RN Specialty Software Project Manager Hospice & Palliative Medicine 05/22/23 Journeyman Carpenter Relationship Specialty Start Date End Date Enrique Esposito, BRASS CUTTER.ELDERLY CAREGIVER [address] [place] [address] PCP - General 08/15/23 Sofie Diana MD [address] [place] [address] Primary Staff Physician Cardiology 07/03/21 Verito Whelan MD [address] [place] [address] Referring Pulmonary Disease 10/04/21 Nina Grigsby MD [address] [place] [address] [place] [address] Physician Hematology/Oncology 10/25/21 Patricia Miller, BRASS CUTTER.ELDERLY CAREGIVER [address] [place] [address] [place] [address] Nurse Practitioner Hematology/Oncology 10/25/21 Denita Rai, KERRY [address] [place] [address] [place] [address] Specialty Software Project Manager Hematology/Oncology 10/25/21 Minna Madrigal LSW Poultry Veterinarian 01/08/23 Estella Fish, BRASS CUTTER.ELDERLY CAREGIVER [address] [place] [address] [place] [address] Hospice & Palliative Medicine 05/22/23 Julieth Tapia RN Specialty Software Project Manager Hospice & Palliative Medicine 05/22/23 Journeyman Carpenter Relationship Specialty Start Date End Date Enrique Esposito, BRASS CUTTER.ELDERLY CAREGIVER [address] [place] [address] PCP - General 08/15/23 Sofie Diana MD [address] [place], [place] [phone] Primary Staff Physician Cardiology 07/03/21 Verito Whelan MD [address] [place] [address] Referring Pulmonary Disease 10/04/21 Nina Grigsby MD [address] [place] [address] [place] [address] Physician Hematology/Oncology 10/25/21 Patricia Miller, BRASS CUTTER.ELDERLY CAREGIVER [address] [place] [address] [place] [address] Nurse Practitioner Hematology/Oncology 10/25/21 Denita Rai, KERRY [address] [place] [address] [place] [address] Specialty Software Project Manager Hematology/Oncology 10/25/21 Minna Madrigal LSW Poultry Veterinarian 01/08/23 Estella Fish, BRASS CUTTER.ELDERLY CAREGIVER [address] [place] [address] [place] [address] Hospice & Palliative Medicine 05/22/23 Julieth Tapia RN Specialty Software Project Manager Hospice & Palliative Medicine 05/22/23 Journeyman Carpenter Relationship Specialty Start Date End Date Enrique Esposito, BRASS CUTTER.ELDERLY CAREGIVER [address] [place] [address] PCP - General 08/15/23 Sofie Diana MD [address] [place] [address] Primary Staff Physician Cardiology 07/03/21 Verito Whelan MD [address] [place] [address] Referring Pulmonary Disease 10/04/21 Nina Grigsby MD [address] [place] [address] [place] [address] Physician Hematology/Oncology 10/25/21 Patricia Miller, BRASS CUTTER.ELDERLY CAREGIVER [address] [place] [address] [place] [address] Nurse Practitioner Hematology/Oncology 10/25/21 Denita Rai, KERRY [address] [place] [address] [place] [address] Specialty Software Project Manager Hematology/Oncology 10/25/21 Minna Madrigal LSW Poultry Veterinarian 01/08/23 Estella Fish, BRASS CUTTER.ELDERLY CAREGIVER [address] [place] [address] [place] [address] Hospice & Palliative Medicine 05/22/23 Julieth Tapia RN Specialty Software Project Manager Hospice & Palliative Medicine 05/22/23 Journeyman Carpenter Relationship Specialty Start Date End Date Enrique Esposito, BRASS CUTTER.ELDERLY CAREGIVER [address] [place] [address] PCP - General 08/15/23 Sofie Diana MD [address] [place] [address] Primary Staff Physician Cardiology 07/03/21 Verito Whelan MD [address] [place] [address] Referring Pulmonary Disease 10/04/21 Nina Grigsby MD [address] [place] [address] [place] [address] Physician Hematology/Oncology 10/25/21 Patricia Miller, BRASS CUTTER.ELDERLY CAREGIVER [address] [place] [address] [place] [address] Nurse Practitioner Hematology/Oncology 10/25/21 Denita Rai, KERRY [address] [place] [address] [place] [address] Specialty Software Project Manager Hematology/Oncology 10/25/21 Minna Madrigal LSW Poultry Veterinarian 01/08/23 Estella Fish, BRASS CUTTER.ELDERLY CAREGIVER [address] [facility] [place] [address] Hospice & Palliative Medicine 05/22/23 Julieth Tapia, RN Specialty Software Project Manager Hospice & Palliative Medicine 05/22/23 Journeyman Carpenter Relationship Specialty Start Date End Date Enriuqe Esposito, BRASS CUTTER.ELDERLY CAREGIVER [address] [place] [address] PCP - General 08/15/23 Sofie Diana MD [address] [place] [address] Primary Staff Physician Cardiology 07/03/21 Verito Whelan MD [address] [place], [place] [id number] Referring Pulmonary Disease 10/04/21 Nina Grigsby MD [address] [place] [address] [place] [address] Physician Hematology/Oncology 10/25/21 Patricia Miller, BRASS CUTTER.ELDERLY CAREGIVER [address] [facility] [place] [address] Nurse Practitioner Hematology/Oncology 10/25/21 Denita Rai, KERRY [address] [facility] [place] [address] Specialty Software Project Manager Hematology/Oncology 10/25/21 Minna Madrigal LSW Poultry Veterinarian 01/08/23 Estella Fish, BRASS CUTTER.ELDERLY CAREGIVER [address] [place] [address] Hospice & Palliative Medicine 05/22/23 Julieth Tapia, KERRY Specialty Software Project Manager Hospice & Palliative Medicine 05/22/23 Journeyman Carpenter Relationship Specialty Start Date End Date Enrique Esposito, BRASS CUTTER.ELDERLY CAREGIVER [address] [place] [id number] PCP - General 08/15/23 Sofie Diana MD [id number] [place], [place] [id number] Primary Staff Physician Cardiology 07/03/21 Verito Whelan MD [address] [id number] Referring Pulmonary Disease 10/04/21 Nina Grigsby MD [address] [place] [address] [place] [address] Physician Hematology/Oncology 10/25/21 Patricia Miller, BRASS CUTTER.ELDERLY CAREGIVER [address] [place] [address] [place] [address] Nurse Practitioner Hematology/Oncology 10/25/21 Denita Rai, KERRY [address] [place] [address] [place] [address] Specialty Software Project Manager Hematology/Oncology 10/25/21 Minna Madrigal LSW Poultry Veterinarian 01/08/23 Estella Fish, BRASS CUTTER.ELDERLY CAREGIVER [address] [place] [address] [place] [address] Hospice & Palliative Medicine 05/22/23 Julieth Tapia RN Specialty Software Project Manager Hospice & Palliative Medicine 05/22/23 Journeyman Carpenter Relationship Specialty Start Date End Date Enrique Esposito, BRASS CUTTER.ELDERLY CAREGIVER [address] [place] [address] 70353 PCP - General 08/15/23 Sofie Diana MD [address] [place], [place] [id number] Primary Staff Physician Cardiology 07/03/21 Verito Whelan MD [address] [place], [place] [id number] Referring Pulmonary Disease 10/04/21 Nina Grigsby MD [address] [place] [address] [place] [address] Physician Hematology/Oncology 10/25/21 Patricia Miller, BRASS CUTTER.ELDERLY CAREGIVER [address] [place] [address] [place] [address] Nurse Practitioner Hematology/Oncology 10/25/21 Denita Rai, KERRY [address] [place] [address] [place] [address] Specialty Software Project Manager Hematology/Oncology 10/25/21 Minna Madrigal LSW Poultry Veterinarian 01/08/23 Estella Fish, BRASS CUTTER.ELDERLY CAREGIVER [address] [place] [address] [place] [phone] Hospice & Palliative Medicine 05/22/23 Julieth Tapia, RN Specialty Software Project Manager Hospice & Palliative Medicine 05/22/23 Journeyman Carpenter Relationship Specialty Start Date End Date Enrique Esposito, BRASS CUTTER.ELDERLY CAREGIVER [address] [place] [address] [phone] PCP - General 08/15/23 Sofie Diana MD [address] [place], [place] [id number] Primary Staff Physician Cardiology 07/03/21 Verito Whelan MD [address] [place], [place] [id number] Referring Pulmonary Disease 10/04/21 Nina Grigsby MD [address] [place] [address] [place] [address] Physician Hematology/Oncology 10/25/21 Patricia Miller, BRASS CUTTER.ELDERLY CAREGIVER [address] [place] [address] [place] [address] Nurse Practitioner Hematology/Oncology 10/25/21 Denita Rai, KERRY [address] [place] [address] [place] [address] Specialty Software Project Manager Hematology/Oncology 10/25/21 Minna Madrigal LSW Poultry Veterinarian 01/08/23 Estella Fish, BRASS CUTTER.ELDERLY CAREGIVER [address] [place] [address] [place] [address] Hospice & Palliative Medicine 05/22/23 Julieth Tapia, RN Specialty Software Project Manager Hospice & Palliative Medicine 05/22/23 Journeyman Carpenter Relationship Specialty Start Date End Date Enrique Esposito, BRASS CUTTER.ELDERLY CAREGIVER [address] [place] [address] [phone] PCP - General 08/15/23 Sofie Diana MD [address] [place], [place] [id number] Primary Staff Physician Cardiology 07/03/21 Verito Whelan MD [address] [place], [place] [id number] Referring Pulmonary Disease 10/04/21 Nina Grigsby MD [address] [place] [address] [place] [address] Physician Hematology/Oncology 10/25/21 Patricia Miller, BRASS CUTTER.ELDERLY CAREGIVER [address] [facility] [place] [address] Nurse Practitioner Hematology/Oncology 10/25/21 Denita Rai, KERRY [address] [facility] [place] [address] Specialty Software Project Manager Hematology/Oncology 10/25/21 Minna Madrigal LSW Poultry Veterinarian 01/08/23 Estella Fish, BRASS CUTTER.ELDERLY CAREGIVER [address] [place] [address] [place] [address] Hospice & Palliative Medicine 05/22/23 Julieth Tapia, RN Specialty Software Project Manager Hospice & Palliative Medicine 05/22/23 Journeyman Carpenter Relationship Specialty Start Date End Date Enrique Esposito, BRASS CUTTER.ELDERLY CAREGIVER [address] [place] [address] 67288 PCP - General 08/15/23 Sofie Diana MD [address] [place] [address] Primary Staff Physician Cardiology 07/03/21 Verito Whelan MD [address] [place] [address] Referring Pulmonary Disease 10/04/21 Nina Grigsby MD [address] [place] [address] [place] [address] Physician Hematology/Oncology 10/25/21 Patricia Miller, BRASS CUTTER.ELDERLY CAREGIVER [address] [place] [address] [place] [address] Nurse Practitioner Hematology/Oncology 10/25/21 Denita Rai, KERRY [address] [facility] [place] [address] Specialty Software Project Manager Hematology/Oncology 10/25/21 Minna Madrigal LSW Poultry Veterinarian 01/08/23 Estella Fish, BRASS CUTTER.ELDERLY CAREGIVER [address] [place] [address] [place] [address] Hospice & Palliative Medicine 05/22/23 Julieth Tapia, KERRY Specialty Software Project Manager Hospice & Palliative Medicine 05/22/23 Journeyman Carpenter Relationship Specialty Start Date End Date Enrique Esposito, BRASS CUTTER.ELDERLY CAREGIVER [address] [place] [address] [phone] PCP - General 08/15/23 Sofie Diana MD [address] [place] [address] Primary Staff Physician Cardiology 07/03/21 Verito Whelan MD [address] [place], [place] 1889695 Referring Pulmonary Disease 10/04/21 Nina Grigsby MD [address] [place] [address] [place] [address] Physician Hematology/Oncology 10/25/21 Patricia Miller, BRASS CUTTER.ELDERLY CAREGIVER [address] [place] [address] [place] [address] Nurse Practitioner Hematology/Oncology 10/25/21 Denita Rai, RN [address] [facility] [place] [address] Specialty Software Project Manager Hematology/Oncology 10/25/21 Minna Madrigal LSW Poultry Veterinarian 01/08/23 Estella Fish, BRASS CUTTER.ELDERLY CAREGIVER [address] [place] [address] [place] [address] Hospice & Palliative Medicine 05/22/23 Julieth Tapia RN Specialty Software Project Manager Hospice & Palliative Medicine 05/22/23 Journeyman Carpenter Relationship Specialty Start Date End Date Enrique Esposito, BRASS CUTTER.ELDERLY CAREGIVER [address] [place] [address] 13459 PCP - General 08/15/23 Sofie Diana MD [address] [place] [address] Primary Staff Physician Cardiology 07/03/21 Verito Whelan MD [address] [place], [place] [id number] Referring Pulmonary Disease 10/04/21 Nina Grigsby MD [address] [place] [address] [place] [address] Physician Hematology/Oncology 10/25/21 Patricia Miller, BRASS CUTTER.ELDERLY CAREGIVER [address] [place] [address] [place] [address] Nurse Practitioner Hematology/Oncology 10/25/21 Denita Rai, KERRY [address] [place] [address] [place] [address] Specialty Software Project Manager Hematology/Oncology 10/25/21 Minna Madrigal LSW Poultry Veterinarian 01/08/23 Estella Fish, BRASS CUTTER.ELDERLY CAREGIVER [address] [place] [address] [place] [address] Hospice & Palliative Medicine 05/22/23 Julieth Tapia RN Specialty Software Project Manager Hospice & Palliative Medicine 05/22/23 Journeyman Carpenter Relationship Specialty Start Date End Date Enrique Esposito, BRASS CUTTER.ELDERLY CAREGIVER [address] [place] [address] 18337 PCP - General 08/15/23 Sofie Diana MD [address] [place], [place] [phone] Primary Staff Physician Cardiology 07/03/21 Verito Whelan MD [address] [place], [place] 2464395 Referring Pulmonary Disease 10/04/21 Nina Grigsby MD [address] [place] [address] [place] [address] Physician Hematology/Oncology 10/25/21 Patricia Miller, BRASS CUTTER.ELDERLY CAREGIVER [address] [place] [address] [place] [address] Nurse Practitioner Hematology/Oncology 10/25/21 Denita Rai, KERRY [address] [place] [address] [place] [address] Specialty Software Project Manager Hematology/Oncology 10/25/21 Minna Madrigal LSW Poultry Veterinarian 01/08/23 Estella Fish, BRASS CUTTER.ELDERLY CAREGIVER [address] [place] [address] [place] [phone] Hospice & Palliative Medicine 05/22/23 Julieth Tapia RN Specialty Software Project Manager Hospice & Palliative Medicine 05/22/23 Journeyman Carpenter Relationship Specialty Start Date End Date Enrique Esposito, BRASS CUTTER.ELDERLY CAREGIVER [address] [place] [address] 97713 PCP - General 08/15/23 Sofie Diana MD [address] [place] [address] Primary Staff Physician Cardiology 07/03/21 Verito Whelan MD [address] [place], [place] [phone] Referring Pulmonary Disease 10/04/21 Nina Grigsby MD [address] [place] [address] [place] [address] Physician Hematology/Oncology 10/25/21 Patricia Miller, BRASS CUTTER.ELDERLY CAREGIVER [address] [place] [address] [place] [address] Nurse Practitioner Hematology/Oncology 10/25/21 Denita Rai, KERRY [address] [place] [address] [place] [address] Specialty Software Project Manager Hematology/Oncology 10/25/21 Minna Madrigal LSW Poultry Veterinarian 01/08/23 Estella Fish BRASS CUTTER.ELDERLY CAREGIVER [address] [facility] [place] [phone] Hospice & Palliative Medicine 05/22/23 Julieth Tapia, RN Specialty Software Project Manager Hospice & Palliative Medicine 05/22/23 Journeyman Carpenter Relationship Specialty Start Date End Date Enrique Esposito, BRASS CUTTER.ELDERLY CAREGIVER [address] [place] [address] 56559 PCP - General 08/15/23 Sofie Diana MD [address] [place] [address] Primary Staff Physician Cardiology 07/03/21 Verito Whelan MD [address] [place], [place] [id number] Referring Pulmonary Disease 10/04/21 Nina Grigsby MD [address] [facility] [place] [address] Physician Hematology/Oncology 10/25/21 Patricia Miller, BRASS CUTTER.ELDERLY CAREGIVER [address] [facility] [place] [address] Nurse Practitioner Hematology/Oncology 10/25/21 Denita Rai, KERRY [address] [facility] [place] [address] Specialty Software Project Manager Hematology/Oncology 10/25/21 Minna Madrigal LSW Poultry Veterinarian 01/08/23 Estella Fish, BRASS CUTTER.ELDERLY CAREGIVER [address] [facility] [place] [address] Hospice & Palliative Medicine 05/22/23 Julieth Tapia, KERRY Specialty Software Project Manager Hospice & Palliative Medicine 05/22/23 Journeyman Carpenter Relationship Specialty Start Date End Date Enrique Esposito, BRASS CUTTER.ELDERLY CAREGIVER [address] [place] [address] 75993 PCP - General 08/15/23 Sofie Diana MD [address] [place], [place] [phone] Primary Staff Physician Cardiology 07/03/21 Verito Whelan MD [address] [place], [place] [phone] Referring Pulmonary Disease 10/04/21 Nina Grigsby MD [address] [place] [address] [place] [address] Physician Hematology/Oncology 10/25/21 Patricia Miller, BRASS CUTTER.ELDERLY CAREGIVER [address] [place] [address] [place] [address] Nurse Practitioner Hematology/Oncology 10/25/21 Denita Rai, KERRY [address] [facility] [place] [address] Specialty Software Project Manager Hematology/Oncology 10/25/21 Minna Madrigal LSW Poultry Veterinarian 01/08/23 Estella Fish, BRASS CUTTER.ELDERLY CAREGIVER [address] [facility] [place] [phone] Hospice & Palliative Medicine 05/22/23 Julieth Tapia RN Specialty Software Project Manager Hospice & Palliative Medicine 05/22/23 Journeyman Carpenter Relationship Specialty Start Date End Date Enrique Esposito, BRASS CUTTER.ELDERLY CAREGIVER [address] [place] [address] 04808 PCP - General 08/15/23 Sofie Diana MD [address] [place] [address] Primary Staff Physician Cardiology 07/03/21 Verito Whelan MD [address] [place] [address] Referring Pulmonary Disease 10/04/21 Nina Grigsby MD [address] [place] [address] [place] [address] Physician Hematology/Oncology 10/25/21 Patricia Miller, BRASS CUTTER.ELDERLY CAREGIVER [address] [place] [address] [place] [address] Nurse Practitioner Hematology/Oncology 10/25/21 Denita Rai, KERRY [address] [place] [address] [place] [address] Specialty Software Project Manager Hematology/Oncology 10/25/21 Minna Madrigal LSW Poultry Veterinarian 01/08/23 Estella Fish, BRASS CUTTER.ELDERLY CAREGIVER [address] [place] [address] [place] [phone] Hospice & Palliative Medicine 05/22/23 Julieth Tapia, RN Specialty Software Project Manager Hospice & Palliative Medicine 05/22/23 Journeyman Carpenter Relationship Specialty Start Date End Date Enrique Esposito, BRASS CUTTER.ELDERLY CAREGIVER [address] [place] [address] 32509 PCP - General 08/15/23 Sofie Diana MD [address] [place] [address] Primary Staff Physician Cardiology 07/03/21 Verito Whelan MD [address] [place], [place] [id number] Referring Pulmonary Disease 10/04/21 Nina Grigsby MD [address] [place] [address] [place] [address] Physician Hematology/Oncology 10/25/21 Patricia Miller, BRASS CUTTER.ELDERLY CAREGIVER [address] [place] [address] [place] [address] Nurse Practitioner Hematology/Oncology 10/25/21 Denita Rai, KERRY [address] [place] [address] [place] [address] Specialty Software Project Manager Hematology/Oncology 10/25/21 Minna Madrigal LSW Poultry Veterinarian 01/08/23 Estella Fish, BRASS CUTTER.ELDERLY CAREGIVER [address] [place] [address] [place] [address] Hospice & Palliative Medicine 05/22/23 Julieth Tapia RN Specialty Software Project Manager Hospice & Palliative Medicine 05/22/23 Journeyman Carpenter Relationship Specialty Start Date End Date Enrique Esposito, BRASS CUTTER.ELDERLY CAREGIVER [address] [place] [address] 26220 PCP - General 08/15/23 Sofie Diana MD [address] [place] [address] Primary Staff Physician Cardiology 07/03/21 Verito Whelan MD [address] [place], [place] [phone] Referring Pulmonary Disease 10/04/21 Nina Grigsby MD [address] [place] [address] [place] [address] Physician Hematology/Oncology 10/25/21 Patricia Miller, BRASS CUTTER.ELDERLY CAREGIVER [address] [place] [address] [place] [address] Nurse Practitioner Hematology/Oncology 10/25/21 Denita Rai, KERRY [address] [place] [address] [place] [address] Specialty Software Project Manager Hematology/Oncology 10/25/21 Minna Madrigal LSW Poultry Veterinarian 01/08/23 Estella Fish, BRASS CUTTER.ELDERLY CAREGIVER [address] [place] [address] [place] [address] Hospice & Palliative Medicine 05/22/23 Julieth Tapia, RN Specialty Software Project Manager Hospice & Palliative Medicine 05/22/23 Journeyman Carpenter Relationship Specialty Start Date End Date Enrique Esposito, BRASS CUTTER.ELDERLY CAREGIVER [address] [place] [address] [phone] PCP - General 08/15/23 Sofie Diana MD [address] [place], [place] [phone] Primary Staff Physician Cardiology 07/03/21 Verito Whelan MD [address] [place], [place] [phone] Referring Pulmonary Disease 10/04/21 Nina Grigsby MD [address] [place] [address] [place] [address] Physician Hematology/Oncology 10/25/21 Patricia Miller, BRASS CUTTER.ELDERLY CAREGIVER [address] [facility] [place] [address] Nurse Practitioner Hematology/Oncology 10/25/21 Denita Rai, KERRY [address] [place] [address] [place] [address] Specialty Software Project Manager Hematology/Oncology 10/25/21 Minna Madrigal LSW Poultry Veterinarian 01/08/23 Estella Fish, BRASS CUTTER.ELDERLY CAREGIVER [address] [place] [address] [place] [address] Hospice & Palliative Medicine 05/22/23 Julieth Tapia, KERRY Specialty Software Project Manager Hospice & Palliative Medicine 05/22/23 Journeyman Carpenter Relationship Specialty Start Date End Date Enrique Esposito, BRASS CUTTER.ELDERLY CAREGIVER [address] [place] [address] [phone] PCP - General 08/15/23 Sofie Diana MD [address] [place], [place] [phone] Primary Staff Physician Cardiology 07/03/21 Verito Whelan MD [address] [place], [place] [phone] Referring Pulmonary Disease 10/04/21 Nina Grigsby MD [address] [place] [address] [place] [address] Physician Hematology/Oncology 10/25/21 Patricia Miller, BRASS CUTTER.ELDERLY CAREGIVER [address] [place] [address] [place] [address] Nurse Practitioner Hematology/Oncology 10/25/21 Denita Rai, RN [address] [facility] [place] [address] Specialty Software Project Manager Hematology/Oncology 10/25/21 Minna Madrigal LSW Poultry Veterinarian 01/08/23 Estella Fish, BRASS CUTTER.ELDERLY CAREGIVER [address] [place] [address] [place] [address] Hospice & Palliative Medicine 05/22/23 Julieth Tapia RN Specialty Software Project Manager Hospice & Palliative Medicine 05/22/23 Journeyman Carpenter Relationship Specialty Start Date End Date Enrique Esposito, BRASS CUTTER.ELDERLY CAREGIVER [address] [place] [address] 68365 PCP - General 08/15/23 Sofie Diana MD [address] [place] [address] Primary Staff Physician Cardiology 07/03/21 Verito Whelan MD [address] [id number] Referring Pulmonary Disease 10/04/21 Nina Grigsby MD [address] [place] [address] [place] [address] Physician Hematology/Oncology 10/25/21 Patricia Miller, BRASS CUTTER.ELDERLY CAREGIVER [address] [place] [address] [address] [place], [place] [phone] Nurse Practitioner Hematology/Oncology 10/25/21 Denita Rai, KERRY [address] [place] [address] [place] [address] Specialty Software Project Manager Hematology/Oncology 10/25/21 Minna Madrigal LSW Poultry Veterinarian 01/08/23 Estella Fish, BRASS CUTTER.ELDERLY CAREGIVER [address] [facility] [place] [address] Hospice & Palliative Medicine 05/22/23 Julieth Tapia RN Specialty Software Project Manager Hospice & Palliative Medicine 05/22/23 Team Status: Active Member Role Status Dates NON STAFF Primary Care Provider Active Team Status: Inactive Member Role Status Dates NON STAFF Primary Care Provider Active Start: February 07, 2024 End: February 07, 2024 John Dominguez MD Emergency Provider Active Star t: February 07, 2024 End: February 07, 2024 Journeyman Carpenter Relationship Specialty Start Date End Date Enrique Esposito BRASS CUTTER.ELDERLY CAREGIVER [address] [place] [address] 52765 PCP - General 08/15/23 Sofie Diana MD [address] [place] [address] Primary Staff Physician Cardiology 07/03/21 Verito Whelan MD [address] [place], [place] [phone] Referring Pulmonary Disease 10/04/21 Nina Grigsby MD [address] [place] [address] [place] [address] Physician Hematology/Oncology 10/25/21 Patricia Miller, BRASS CUTTER.ELDERLY CAREGIVER [address] [place] [address] [place] [address] Nurse Practitioner Hematology/Oncology 10/25/21 Denita Rai, KERRY [address] [place] [address] [place] [address] Specialty Software Project Manager Hematology/Oncology 10/25/21 Minna Madrigal LSW Poultry Veterinarian 01/08/23 Estella Fish, BRASS CUTTER.ELDERLY CAREGIVER [address] [place] [address] [place] [address] Hospice & Palliative Medicine 05/22/23 Julieth Tapia RN Specialty Software Project Manager Hospice & Palliative Medicine 05/22/23 Journeyman Carpenter Relationship Specialty Start Date End Date Enrique Esposito, BRASS CUTTER.ELDERLY CAREGIVER [address] [place] [address] 64953 PCP - General 08/15/23 Sofie Diana MD [address] [place], [place] [phone] Primary Staff Physician Cardiology 07/03/21 Verito Whelan MD [address] [place] [address] Referring Pulmonary Disease 10/04/21 Nina Grigsby MD [address] [place] [address] [place] [address] Physician Hematology/Oncology 10/25/21 Patricia Miller, BRASS CUTTER.ELDERLY CAREGIVER [address] [place] [address] [place] [address] Nurse Practitioner Hematology/Oncology 10/25/21 Denita Rai, KERRY [address] [place] [address] [place] [address] Specialty Software Project Manager Hematology/Oncology 10/25/21 Minna Madrigal LSW Poultry Veterinarian 01/08/23 Estella Fish, BRASS CUTTER.ELDERLY CAREGIVER [address] [place] [address] [place] [address] Hospice & Palliative Medicine 05/22/23 Julieth Tapia RN Specialty Software Project Manager Hospice & Palliative Medicine 05/22/23 Journeyman Carpenter Relationship Specialty Start Date End Date Enrique Esposito, BRASS CUTTER.ELDERLY CAREGIVER [address] [place] [address] [phone] PCP - General 08/15/23 Sofie Diana MD [address] [id number] Primary Staff Physician Cardiology 07/03/21 Verito Whelan MD [address] [place], [place] [id number] Referring Pulmonary Disease 10/04/21 Nina Grigsby MD [address] [place] [address] [place] [address] Physician Hematology/Oncology 10/25/21 Patricia Miller, BRASS CUTTER.ELDERLY CAREGIVER [address] [place] [address] [place] [address] Nurse Practitioner Hematology/Oncology 10/25/21 Denita Rai, KERRY [address] [place] [address] [place] [address] Specialty Software Project Manager Hematology/Oncology 10/25/21 Minna Madrigal LSW Poultry Veterinarian 01/08/23 Estella Fish, BRASS CUTTER.ELDERLY CAREGIVER [address] [facility] [place] [address] Hospice & Palliative Medicine 05/22/23 Julieth Tapia, RN Specialty Software Project Manager Hospice & Palliative Medicine 05/22/23 Journeyman Carpenter Relationship Specialty Start Date End Date Enrique Esposito, BRASS CUTTER.ELDERLY CAREGIVER [address] [place] [address] PCP - General 08/15/23 Sofie Diana MD [address] [place] [address] Primary Staff Physician Cardiology 07/03/21 Verito Whelan MD [address] [place], [place] [phone] Referring Pulmonary Disease 10/04/21 Nina Grigsby MD [address] [facility] [place] [address] Physician Hematology/Oncology 10/25/21 Patricia Miller, BRASS CUTTER.ELDERLY CAREGIVER [address] [facility] [place] [address] Nurse Practitioner Hematology/Oncology 10/25/21 Denita Rai, KERRY [address] [facility] [place] [address] Specialty Software Project Manager Hematology/Oncology 10/25/21 Minna Madrigal LSW Poultry Veterinarian 01/08/23 Estella Fish, BRASS CUTTER.ELDERLY CAREGIVER [address] [facility] [place] [address] Hospice & Palliative Medicine 05/22/23 Julieth Tapia RN Specialty Software Project Manager Hospice & Palliative Medicine 05/22/23 Journeyman Carpenter Relationship Specialty Start Date End Date Enrique Esposito, BRASS CUTTER.ELDERLY CAREGIVER [address] [place] [address] 37243 PCP - General 08/15/23 Sofie Diana MD [address] [place], [place] 1578395 Primary Staff Physician Cardiology 07/03/21 Verito Whelan MD [address] [id number] Referring Pulmonary Disease 10/04/21 Nina Grigsby MD [address] [place] [address] [place] [address] Physician Hematology/Oncology 10/25/21 Patricia Miller, BRASS CUTTER.ELDERLY CAREGIVER [address] [place] [address] [place] [address] Nurse Practitioner Hematology/Oncology 10/25/21 Denita Rai, KERRY [address] [place] [address] [place] [address] Specialty Software Project Manager Hematology/Oncology 10/25/21 Minna Madrigal LSW Poultry Veterinarian 01/08/23 Estella Fish, BRASS CUTTER.ELDERLY CAREGIVER [address] [place] [address] [place] [address] Hospice & Palliative Medicine 05/22/23 Julieth Tapia RN Specialty Software Project Manager Hospice & Palliative Medicine 05/22/23 Journeyman Carpenter Relationship Specialty Start Date End Date Enrique Esposito BRASS CUTTER.ELDERLY CAREGIVER [address] [place] [address] 24408 PCP - General 08/15/23 Sofie Diana MD [address] [place], [place] [phone] Primary Staff Physician Cardiology 07/03/21 Verito Whelan MD [address] [place], [place] [phone] Referring Pulmonary Disease 10/04/21 Nina Grigsby MD [address] [place] [address] [place] [address] Physician Hematology/Oncology 10/25/21 Patricia Miller, BRASS CUTTER.ELDERLY CAREGIVER [address] [place] [address] [place] [address] Nurse Practitioner Hematology/Oncology 10/25/21 Denita Rai, KERRY [address] [place] [address] [place] [address] Specialty Software Project Manager Hematology/Oncology 10/25/21 Minna Madrigal LSW Poultry Veterinarian 01/08/23 Estella Fish, BRASS CUTTER.ELDERLY CAREGIVER [address] [place] [address] [place] [phone] Hospice & Palliative Medicine 05/22/23 Julieth Tapia, RN Specialty Software Project Manager Hospice & Palliative Medicine 05/22/23 Journeyman Carpenter Relationship Specialty Start Date End Date Enrique Esposito, BRASS CUTTER.ELDERLY CAREGIVER [address] [place] [address] PCP - General 08/15/23 Sofie Diana MD [address] [place], [place] [phone] Primary Staff Physician Cardiology 07/03/21 Verito Whelan MD [address] [place], [place] [phone] Referring Pulmonary Disease 10/04/21 Nina Grigsby MD [address] [place] [address] [place] [address] Physician Hematology/Oncology 10/25/21 Patricia Miller, BRASS CUTTER.ELDERLY CAREGIVER [address] [place] [address] [place] [address] Nurse Practitioner Hematology/Oncology 10/25/21 Denita Rai, KERRY [address] [place] [address] [place] [address] Specialty Software Project Manager Hematology/Oncology 10/25/21 Minna Madrigal LSW Poultry Veterinarian 01/08/23 Estella Fish, BRASS CUTTER.ELDERLY CAREGIVER [address] [place] [address] [place] [address] Hospice & Palliative Medicine 05/22/23 Julieth Tapia RN Specialty Software Project Manager Hospice & Palliative Medicine 05/22/23 Journeyman Carpenter Relationship Specialty Start Date End Date Enrique Esposito, BRASS CUTTER.ELDERLY CAREGIVER [address] [place] [address] PCP - General 08/15/23 Sofie Diana MD [address] [place] [address] Primary Staff Physician Cardiology 07/03/21 Verito Whelan MD [address] [place], [place] [phone] Referring Pulmonary Disease 10/04/21 Nina Grigsby MD [address] [place] [address] [place] [address] Physician Hematology/Oncology 10/25/21 Patricia Miller, BRASS CUTTER.ELDERLY CAREGIVER [address] [facility] [place] [address] Nurse Practitioner Hematology/Oncology 10/25/21 Denita Rai, KERRY [address] [facility] [place] [address] Specialty Software Project Manager Hematology/Oncology 10/25/21 Minna Madrigal LSW Poultry Veterinarian 01/08/23 Estella Fish, BRASS CUTTER.ELDERLY CAREGIVER [address] [place] [address] [place] [address] Hospice & Palliative Medicine 05/22/23 Julieth Tapia RN Specialty Software Project Manager Hospice & Palliative Medicine 05/22/23 Journeyman Carpenter Relationship Specialty Start Date End Date Enrique Esposito, BRASS CUTTER.ELDERLY CAREGIVER [address] [place] [address] PCP - General 08/15/23 Sofie Diana MD [address] [place] [address] Primary Staff Physician Cardiology 07/03/21 Verito Whelan MD [address] [place] [address] Referring Pulmonary Disease 10/04/21 Nina Grigsby MD [address] [place] [address] [place] [address] Physician Hematology/Oncology 10/25/21 Patricia Miller, BRASS CUTTER.ELDERLY CAREGIVER [address] [place] [address] [place] [address] Nurse Practitioner Hematology/Oncology 10/25/21 Denita Rai, KERRY [address] [place] [address] [place] [address] Specialty Software Project Manager Hematology/Oncology 10/25/21 Minna Madrigal LSW Poultry Veterinarian 01/08/23 Estella Fish, BRASS CUTTER.ELDERLY CAREGIVER [address] [place] [address] [place] [address] Hospice & Palliative Medicine 05/22/23 Julieth Tapia RN Specialty Software Project Manager Hospice & Palliative Medicine 05/22/23 Journeyman Carpenter Relationship Specialty Start Date End Date Enrique Esposito, BRASS CUTTER.ELDERLY CAREGIVER [address] [place] [address] PCP - General 08/15/23 Sofie Diana MD [address] [place] [address] Primary Staff Physician Cardiology 07/03/21 Verito Whelan MD [address] [place] [id number] Referring Pulmonary Disease 10/04/21 Nina Grigsby MD [address] [place] [address] [place] [address] Physician Hematology/Oncology 10/25/21 Patricia Miller, BRASS CUTTER.ELDERLY CAREGIVER [address] [place] [address] [place] [address] Nurse Practitioner Hematology/Oncology 10/25/21 Denita Rai, RN [address] [place] [address] [place] [address] Specialty Software Project Manager Hematology/Oncology 10/25/21 Minna Madrigal LSW Poultry Veterinarian 01/08/23 Estella Fish, BRASS CUTTER.ELDERLY CAREGIVER [address] [place] [address] [place] [address] Hospice & Palliative Medicine 05/22/23 Julieth Tapia RN Specialty Software Project Manager Hospice & Palliative Medicine 05/22/23 Journeyman Carpenter Relationship Specialty Start Date End Date Enrique Esposito, BRASS CUTTER.ELDERLY CAREGIVER [address] [place] [address] PCP - General 08/15/23 Sofie Diana MD [address] [place], [place] [phone] Primary Staff Physician Cardiology 07/03/21 Verito Whelan MD [address] [place], [place] 2888995 Referring Pulmonary Disease 10/04/21 Nina Grigsby MD [address] [place] [address] [place] [address] Physician Hematology/Oncology 10/25/21 Patricia Miller, BRASS CUTTER.ELDERLY CAREGIVER [address] [place] [address] [place] [address] Nurse Practitioner Hematology/Oncology 10/25/21 Denita Rai, KERRY [address] [place] [address] [place] [address] Specialty Software Project Manager Hematology/Oncology 10/25/21 Minna Madrigal LSW Poultry Veterinarian 01/08/23 Estella Fish, BRASS CUTTER.ELDERLY CAREGIVER [address] [place] [address] [place] [address] Hospice & Palliative Medicine 05/22/23 Julieth Tapia RN Specialty Software Project Manager Hospice & Palliative Medicine 05/22/23 Journeyman Carpenter Relationship Specialty Start Date End Date Enrique Esposito, BRASS CUTTER.ELDERLY CAREGIVER [address] [place] [address] PCP - General 08/15/23 Sofie Diana MD [address] [place], [place] [phone] Primary Staff Physician Cardiology 07/03/21 Verito Whelan MD [address] [place] [address] Referring Pulmonary Disease 10/04/21 Nina Grigsby MD [address] [place] [address] [place] [address] Physician Hematology/Oncology 10/25/21 Patricia Miller, BRASS CUTTER.ELDERLY CAREGIVER [address] [place] [address] [place] [address] Nurse Practitioner Hematology/Oncology 10/25/21 Denita Rai, KERRY [address] [place] [address] [place] [address] Specialty Software Project Manager Hematology/Oncology 10/25/21 Minna Madrigal LSW Poultry Veterinarian 01/08/23 Estella Fish, BRASS CUTTER.ELDERLY CAREGIVER [address] [place] [address] [place] [address] Hospice & Palliative Medicine 05/22/23 Julieth Tapia RN Specialty Software Project Manager Hospice & Palliative Medicine 05/22/23 Journeyman Carpenter Relationship Specialty Start Date End Date Enrique Esposito, BRASS CUTTER.ELDERLY CAREGIVER [address] [place] [address] PCP - General 08/15/23 Sofie Diana MD [address] [place] [id number] Primary Staff Physician Cardiology 07/03/21 Verito Whelan MD [address] [place], [place] [phone] Referring Pulmonary Disease 10/04/21 Nina Grigsby MD [address] [place] [address] [place] [address] Physician Hematology/Oncology 10/25/21 Patricia Miller, BRASS CUTTER.ELDERLY CAREGIVER [address] [place] [address] [place] [address] Nurse Practitioner Hematology/Oncology 10/25/21 Denita Rai, KERRY [address] [place] [address] [place] [address] Specialty Software Project Manager Hematology/Oncology 10/25/21 Minna Madrigal LSW Poultry Veterinarian 01/08/23 Estella Fish, BRASS CUTTER.ELDERLY CAREGIVER [address] [place] [address] [place] [phone] Hospice & Palliative Medicine 05/22/23 Julieth Tapia, RN Specialty Software Project Manager Hospice & Palliative Medicine 05/22/23 Team Status: [...] March 19, 2024 End: March 20, 2024 Journeyman Carpenter Relationship Specialty Start Date End Date Enrique Esposito, BRASS CUTTER.ELDERLY CAREGIVER [address] [place] [address] PCP - General 08/15/23 Sofie Diana MD [address] [place] [address] Primary Staff Physician Cardiology 07/03/21 Verito Whelan MD [address] [place] [address] Referring Pulmonary Disease 10/04/21 Nina Grigsby MD [address] [place] [address] [place] [address] Physician Hematology/Oncology 10/25/21 Patricia Miller, BRASS CUTTER.ELDERLY CAREGIVER [address] [place] [address] [place] [address] Nurse Practitioner Hematology/Oncology 10/25/21 Denita Rai, KERRY [address] [place] [address] [place] [address] Specialty Software Project Manager Hematology/Oncology 10/25/21 Minna Madrigal LSW Poultry Veterinarian 01/08/23 Estella Fish, BRASS CUTTER.ELDERLY CAREGIVER [address] [place] [address] [place] [address] Hospice & Palliative Medicine 05/22/23 Julieth Tapia RN Specialty Software Project Manager Hospice & Palliative Medicine 05/22/23 Journeyman Carpenter Relationship Specialty Start Date End Date Enrique Esposito, BRASS CUTTER.ELDERLY CAREGIVER [address] [place] [address] PCP - General 08/15/23 Sofie Diana MD [address] [place], [place] [phone] Primary Staff Physician Cardiology 07/03/21 Verito Whelan MD [address] [place], [place] [phone] Referring Pulmonary Disease 10/04/21 Nina Grigsby MD [address] [place] [address] [place] [address] Physician Hematology/Oncology 10/25/21 Patricia Miller, BRASS CUTTER.ELDERLY CAREGIVER [address] [place] [address] [place] [address] Nurse Practitioner Hematology/Oncology 10/25/21 Denita Rai, RN [address] [facility] [place] [address] Specialty Software Project Manager Hematology/Oncology 10/25/21 Minna Madrigal LSW Poultry Veterinarian 01/08/23 Estella Fish, BRASS CUTTER.ELDERLY CAREGIVER [address] [place] [address] [place] [address] Hospice & Palliative Medicine 05/22/23 Julieth Tapia RN Specialty Software Project Manager Hospice & Palliative Medicine 05/22/23 Reason for Visit (unrecogniz ed section and content) Reason Comments Pain Specialty Diagnoses / Procedures Referred By Contac t Referred To Contact Hospice & Palliative Medicine / PALLIATIVE MEDICINE Diagnoses 3 month follow up Procedures OFFICE/OUTPATIENT ESTABLISHED HIGH MDM 40 MIN EST PATIENT Estella Fish, BRASS CUTTER.ELDERLY CAREGIVER [address] [facility] [place] [address] Estella Fish, BRASS CUTTER.ELDERLY CAREGIVER [address] [place] [address] Referral ID Status Reason Start Date Expiration Date V isits Requested Visits Authorized [id number] Authorized 10/29/2023 07/20/2024 99 99 Reason Comments Nutrition Assessment Specialty Diagnoses / Procedures Referred By Contac t Referred To Contact Nutrition / NUTRI SAND Diagnoses Nutri appt Procedures OFFICE/OUTPATIENT ESTABLISHED MOD MDM 30 MIN EST PATIENT Dominique Rudd, RD [address] [place] [address] Referral ID Status Reason Start Date Expiration Date Visits Re quested Visits Authorized [id number] Closed 10/20/2023 07/20/2024 1 1 Reason Comments [...] MDM 10 MIN EST PATIENT Enrique Esposito, BRASS CUTTER.ELDERLY CAREGIVER [address] [place] [address] Nina Grigsby MD [address] [place] [address] [place] [address] Referral ID Status Reason Start Date Expiration Date Visits Re quested Visits Authorized [id number] Closed 09/04/2023 07/20/2024 1 1 Specialty Diagnoses / Procedures Referred By Contac t Referred To Contact Radiation Oncology / RADIATION ONCOLOGY Diagnoses 2 Week Post XRT Procedures EST POST 90 DAY RAD TX Hector Limon MD [address] [place] [address] [place] [address] Hector Limon MD [address] [place] [address] [place] [address] Referral ID Status Reason Start Date Expiration Date V isits Requested Visits Authorized [id number] Authorized 11/12/2022 07/20/2023 99 99 Specialty Diagnoses / Procedures Referred By Contac t Referred To Contact [facility] Diagnoses Malignant neoplasm of upper lobe, left bronchus or lung Procedures REFERRAL TO [facility] FINANCIAL COUNSELOR Nina Grigsby MD [facility] [place] [address] [facility] Cancer App[address] [place] [address] Referral ID Status Reason Start Date Expiration Date Visits Requested Visits Authorized [id number] Pending Review Financial Clearance Required - OON [...] lung (HCC) Procedures CONSULT TO ONCOLOGY OFFICE/OUTPATIENT [facility] 60-74 MINUTES Aracelis Carrillo APRN.ELDERLY CAREGIVER [address] [place] [address] Referral ID Status Reason Start Date Expiration Date V isits Requested Visits Authorized [id number] Closed PCP Requested Referral 10/11/2021 10/11/2022 1 1 Reason Comments First Time Treatment Education Reason Comments First Time Treatment Education Pemetrexe d, Cisplatin Reason Comments Care Coordination Folic Acid Reason Comments Care Coordination Research Trial Reason Comments Care Coordination MRI Specialty Diagnoses / Procedures [facility] Referred To Contact Radiation Oncology Diagnoses Malignant neoplasm of upper lobe of left lung (HCC) Procedures RAD/ONC CONSULT OFFICE/OUTPATIENT [facility] 60-74 MINUTES Nina Grigsby MD [address] [facility] [place] [address] Referral ID Status Reason Start Date Expiration Date V isits Requested Visits Authorized [id number] Closed PCP Requested Referral 10/22/2021 10/22/2022 1 1 Reason Comments Lab Orders Specialty Diagnoses / Procedures [facility] Referred To Contact Diagnoses Malignant neoplasm of upper lobe of left lung (HCC) Procedures PALONOSETRON HCL CISPLATIN 10 MG INJECTION DIPHENHYDRAMINE HCL INJECTIO INJECTION, PEMETREXED, NOT OTHERWISE SPECIFIED, 10 MG Nina Grigsby MD [address] [facility] [place] [address] Kristofer Treat [place] Mc [address] [facility] [place] [address] Referral ID Status Reason Start Date Expiration Date V isits Requested Visits Authorized [id number] Authorized 10/22/2021 01/15/2022 4 4 Reason Comments [...] e Specialty Diagnoses / Procedures Referred By Ap arteaga Referred To Contact [facility] Diagnoses Malignant neoplasm of upper lobe, left bronchus or lung Procedures REFERRAL TO [facility] FINANCIAL COUNSELOR Nina Grigsby MD [address] [place] [address] [place] [address] [place] [address] Reason Comments Results hypokalemia Reason Comments Spirometry Specialty Diagnoses / Procedures Referred By [facility] Referred To Contact [facility] Diagnoses Chronic obstructive pulmonary disease, unspecified COPD type (HCC) Lung nodule Procedures LUNG DIFFUSION CAPACITY (DLCO) DIFFUSING CAPACITY Verito Whelan MD [address] [place] [address] [place] [address] Referral ID Status Reason Start Date Expiration Date V isits Requested Visits Authorized [id number] Closed Auto-Generate d Referral 11/09/2021 10/11/2022 1 1 Specialty Diagnoses / Procedures [facility] Referred To Contact [facility] Diagnoses Chronic obstructive pulmonary disease, unspecified COPD type (HCC) Lung nodule Procedures SPIROMETRY WITH DILATOR IF OBSTRUCTED BRNCDILAT RSPSE SPMTRY PRE&POST-BRNCDILAT ADMN Verito Whelan MD [address] [place] [address] [address] Referral ID Status Reason Start Date Expiration Date V isits Requested Visits Authorized [id number] Closed Auto-Generate d Referral 11/09/2021 10/11/2022 1 [...] Pain Specialty Diagnoses / Procedures [facility] Referred To Contact Diagnoses Malignant neoplasm of upper lobe of left lung (HCC) Nina Grigsby MD [address] [facility] [place] [address] Kristofer Treat Jose Mc [address] [facility] [place] [address] Referral ID Status Reason Start Date Expiration Date V isits Requested Visits Authorized [id number] Authorized 10/16/2022 01/14/2023 99 99 Reason Comments Care Coordination Nutrition Consult Reason Onset Date Comments Lung Cancer Simulation Request Form 10/21/2022 Reason Comments Patient Question Reason Onset Date Comments Refill Request 11/11/2022 Reason Comments Insurance Authorization Oxycodone-Acetam inophen Reason Comments Depression Decreased Appetite Specialty Diagnoses / Procedures Referred By [facility] Referred To Contact Radiation Oncology / RADIATION ONCOLOGY Diagnoses 2 Week Post XRT Procedures EST POST 90 DAY RAD TX Hector Limon MD [address] [facility] [place] [address] Hector Limon MD [address] [facility] [place] [address] Reason Comments Lung Cancer Treatment visit Reason [...] STEM W/O W/CONTRAST MATERIAL Renetta Ponce MD [address] [place] [address] [facility] [place] [address] Referral ID Status Reason Start Date Expiration Date V isits Requested Visits Authorized [id number] Closed Auto-Generate d Referral 10/26/2021 11/18/2021 1 1 Reason Comments Follow Up Pet scan results Specialty Diagnoses / Procedures Referred By Contac t Referred To Contact Ent - Otolaryngology Diagnoses Tonsillar mass Procedures CONSULT TO ENT OFFICE/OUTPATIENT NEW HIGH MDM 60-74 MINUTES Nina Grigsby MD [address] [facility] [place] [address] Referral ID Status Reason Start Date Expiration Date V isits Requested Visits Authorized [id number] Closed PCP Requested Referral 05/13/2023 05/12/2024 1 [...] NEW HIGH MDM 60-74 MINUTES Patricia Miller, BRASS CUTTER.ELDERLY CAREGIVER [address] [facility] [place] [address] [place] [address] [place] [id number] Referral ID Status Reason Start Date Expiration Date V isits Requested Visits Authorized [id number] Closed PCP Requested Referral 05/15/2023 05/14/2024 1 1 Reason Comments Care Coordination TSH Result Reason Comments Nutrition Assessment No show Reason Onset Date Comments Refill Request 10/20/2023 Specialty Diagnoses / Procedures Referred By Contac t Referred To Contact Hematology / HEMATOLOGY/ONCOLOGY Diagnoses Follow-up exam 4 week follow up - Lumakras oral med Procedures OFFICE/OUTPATIENT ESTABLISHED HIGH MDM 40 MIN EST PATIENT CateEnrique, BRASS CUTTER.ELDERLY CAREGIVER [address] [place] [address] Nina Grigsby MD [address] [place] [address] [place] [address] Referral ID Status Reason Start Date Expiration Date V isits Requested Visits Authorized [id number] Authorized 10/20/2023 07/20/2024 99 99 Reason Comments [...] 10 MIN EST PATIENT Enrique Esposito L, BRASS CUTTER.ELDERLY CAREGIVER [address] [place] [address] Nina Grigsby MD [address] [place] [address] [place] [address] Reason Comments Care Coordination Call Request Reason Comments Care Coordination Appointments Specialty Diagnoses / Procedures Referred By Contac t Referred To Contact Hospice & Palliative Medicine / PALLIATIVE MEDICINE Diagnoses 3 month follow up Procedures OFFICE/OUTPATIENT ESTABLISHED HIGH MDM 40 MIN EST PATIENT Estella Fish, BRASS CUTTER.ELDERLY CAREGIVER [address] [facility] [place] [address] Estella Fish, BRASS CUTTER.ELDERLY CAREGIVER [address] [place] [address] Reason Comments Orders Reason Comments Research IRB [id number] Case11 z15 Informed Consent Reason Onset Date Comments Simulation Request Form 12/02/2023 Consult Specialty Diagnoses / Procedures Referred By Contac t Referred To Contact Radiation Oncology / RADIATION ONCOLOGY Diagnoses New pain Procedures EST PATIENT NEW PROBLEM Pcp, Suellen, Hector Magallanes MD [address] [place] [address] [place] [address] Referral ID Status Reason Start Date Expiration Date V isits Requested Visits Authorized [id number] Authorized 12/02/2023 07/20/2024 99 99 Reason Comments [...] RI NEW LUNG CANCER Nina Grigsby MD [address] 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 Swelling of arm Cancer associated pain Procedures NM PET/CT SKULL-THIGH SUBSEQUENT PET IMAGING CT ATTENUATION SKULL BASE MID-THIGH Yusef Pandya PA-C [address] [place] [address] [place] [address] Molecular & Functional Imaging [address] [place] [address] Referral ID Status Reason Start Date Expiration Date V isits Requested Visits Authorized [id number] Closed Auto-Generate d Referral 02/03/2024 03/04/2025 1 1 Specialty Diagnoses / Procedures Referred By Contac Referred To Contact RADIATION ONCOLOGY Diagnoses Malignant neoplasm of upper lobe of left lung (HCC) 15 FX plus sim IMRT Procedures CT SIM PLANNING RADIATION ONCOLOGY THER RAD SIMULAJ-AIDED FIELD SETTING COMPLEX INTENSITY MODULATED RADIATION TX DLVR COMPLEX 15 FX plus sim IMRT Hector Limon MD [address] [place] [address] [place] [address] [address] [place] [address] Referral ID Status Reason Start Date Expiration Date Visits Requested Visits Authorized [id number] Authorized PCP Requested Referral 12/03/2023 06/03/2024 16 16 Goals (unrecognized section and content) Goals may [...] BE BASED ON THE PRIMARY CLINICAL RECORDS. [facility]. provides no warranty or guarantee of the accuracy or completeness of information in this document.
[2024-03-30 22:45] VITALS: O2SAT 78
[2024-03-30 23:04] VITALS: O2SAT 94
--- NOTE | 2024-03-30 23:04 | PC.NURSE ---
patient wears 2LPM per NC at home. SPO2 in 70s on arrival, O2 increased to 4LPM and SPO2 increased to 94%. Patient resting comfortably on bed at this time. He does complain of pain and swelling to left arm that he said was present on discharge from this facility earlier today, but he states it has gotten worse through the day today,.
--- NOTE | 2024-03-31 01:14 | XR_ITS ---
The [address] [address] Patient Name: CRISTAL BARRY MRN: [id number] date: 1955 Sex: M Assigned Patient Location: ER Current Patient Location: Accession/Order Number: [id number] Exam Date: 03/31/2024 01:20 Report Date: 03/31/2024 03:15 At the request of: MISTI EISENBERG Procedure: XR chest 1V SINGLE VIEW CHEST: 03/31/2024 1:20 AM EDT CLINICAL HISTORY:short of breath COMPARISONS: 03/28/2024 TECHNIQUE: Single frontal view of the chest, utilizing portable technique. Portable radiography should be considered a technically compromised study. Strongly consider dedicated PA and lateral chest radiographs, as clinically indicated. FINDINGS: LINES AND TUBES: None appreciated. CARDIAC SILHOUETTE: Within normal limits. MEDIASTINAL AND HILAR CONTOUR: Within normal limits. PULMONARY PARENCHYMA AND PLEURA: Persistent but improving/resolving right perihilar and lower lobe infiltrates. Opacity left hilum remains. Lungs otherwise clear. OSSEOUS STRUCTURES:Sternotomy. OTHER COMMENTS:None. XR/XR chest 1V IMPRESSION: Persistent but improving right lung infiltrates. Otherwise stable. This report was generated with voice recognition software. Effort has been made to ensure accuracy of this report, however, occasional wording errors may persist. Please contact our office with any questions. Electronically authenticated by: DEIRDRE SHINE Date: 03/31/2024 03:15
--- NOTE | 2024-03-31 01:16 | ED_ITS ---
HPI - SOB/Dyspnea General Chief Complaint: Shortness of Breath/Dyspnea Stated Complaint: Shortness of Breath Time Seen by Provider: 03/31/24 01:12 Source: patient Mode of arrival: Wheelchair History of Present Illness HPI Narrative: history of 02 dependent COPD. Arrives short of breath. admits he is always short of breath. Discharged from hospital Denies chest pain or nausea states there was swelling of his left arm before he was discharged. He feels the swelling has increased . Described IV infiltrated and his arm swelled. Swelling increased and he came back. he otherwise is at his baseline breathing he is currently on antibiotics for pneumonia and eliquis for PE Related Data Home Medications ?Medication ?Instructions ?Recorded ?Confirmed atorvastatin 40 mg tablet 40 mg PO DAILY 07/05/23 03/28/24 cilostazol 100 mg tablet 100 mg PO BID 07/05/23 03/28/24 clopidogrel 75 mg tablet 75 mg PO DAILY 07/05/23 03/28/24 isosorbide mononitrate 30 mg 30 mg PO DAILY 07/05/23 03/28/24 tablet,extended release 24 hr metoprolol tartrate 25 mg tablet 50 mg PO Q12H 07/05/23 03/28/24 sotorasib 320 mg tablet (Lumakras) 960 mg PO Q24H 07/05/23 03/28/24 albuterol sulfate 90 mcg/actuation 2 puff inhalation Q4H PRN 03/28/24 03/28/24 aerosol inhaler shortness of breath or wheezing fentanyl 100 mcg/hr transdermal 1 patch topical Q72H 03/28/24 03/28/24 patch gabapentin 100 mg capsule 100 mg PO TID 03/28/24 03/28/24 olanzapine 10 mg tablet 10 mg PO .QHS 03/28/24 03/28/24 venlafaxine 37.5 mg 37.5 mg PO .QD 03/28/24 03/28/24 capsule,extended release 24 hr Previous Rx's ?Medication ?Instructions ?Recorded apixaban 5 mg tablet (Eliquis) 5 mg PO BID #60 tabs 03/30/24 levofloxacin 750 mg tablet 750 mg PO DAILY 5 days #5 tabs 03/30/24 prednisone 20 mg tablet 20 mg PO BID 5 days #10 tabs 03/30/24 Allergies Allergy/AdvReac Type Severity Reaction Status Date / Time No Known Drug Allergies Allergy Verified 03/30/24 22:40 Review of Systems ROS Status of ROS 10 or more systems reviewed and unremark able except as noted in history and [facility] History (Updated 03/31/24 @ 01:36 by Chidi Ernst MD) HLD (hyperlipidemia) ?E78.5 - Hyperlipidemia, unspecified (ICD-10) COPD (chronic obstructive pulmonary disease) ?J44.9 - Chronic obstructive pulmonary disease, unspecified (ICD-10) Metastatic non-small cell lung cancer ?C34.90 - Malignant neoplasm of unspecified part of unspecified bronchus or lung (ICD-10) History of pulmonary embolism ?Z86.711 - Personal history of pulmonary embolism (ICD-10) CAD (coronary artery disease) ?I25.10 - Atherosclerotic heart disease of [place] coronary artery without angina pectoris (ICD-10) PAD (peripheral artery disease) ?I73.9 - Peripheral vascular disease, unspecified (ICD-10) Surgical History (Updated 03/28/24 @ 11:54 by Shaikh Marium MD) H/O pneumonectomy ?Z98.890 - Other specified postprocedural states (ICD-10) ?Z90.2 - Acquired absence of lung [part of] (ICD-10) Hx of CABG ?Z95.1 - Presence of aortocoronary bypass graft (ICD-10) Social History (Updated 03/28/24 @ 11:55 by Shaikh Marium MD) Within the past year, how often did you have a drink containing alcohol: monthly or less Within the past year, how many standard drinks containing alcohol did you have on a typical day: 1 or 2 Within the past year, how often did you have six or more drinks on one occasion: never Total score: 0 Score interpretation: A score less than 4 is consistent with normal alcohol consumption. Smoking status: Former smoker Non-prescribed substance use: denies use Highest level of school completed/degree received: high school graduate Little interest or pleasure in doing things: several days Feeling down, depressed, or hopeless: not at all Exam Constitutional Vital Signs, click to edit/add: Last Vital Signs Temp 98.6 F 03/30/24 22:40 Pulse 122 H 03/30/24 22:40 Resp 26 H 03/30/24 22:40 BP 173/95 H 03/30/24 22:40 Pulse Ox 94 L 03/30/24 23:04 O2 Del Method Nasal Cannula 03/30/24 23:04 O2 Flow Rate 4 03/30/24 23:04 Common normals: oriented x3 and alert General appearance: in distress HENMT Common normals: normocephalic and head/scalp atraumatic Respiratory Other: diminished breath sounds through out Cardio Common normals: regular rate, regular rhythm, S1 normal heart sound and S2 normal heart sound GI Common normals: Normal to inspection, nondistended, normoactive bowel sounds present and soft to palpation Extremity Common normals: full ROM Other: edema of the left lower arm. Nontender. Not erythematous or warm Neuro Common normals: oriented x3, CN's II-XII intact bilaterally and moves all extremities Psych Appearance: grossly normal Course Vital Signs Vital signs: Vital Signs Temperature 98.6 F 03/30/24 22:40 Pulse Rate 122 H 03/30/24 22:40 Respiratory Rate 26 H 03/30/24 22:40 Blood Pressure 173/95 H 03/30/24 22:40 Pulse Oximetry 92 L 03/30/24 22:40 Oxygen Delivery Method Nasal Cannula 03/30/24 22:40 Oxygen Delivery Flow Rate 4 03/30/24 22:40 Temperature 98.6 F 03/30/24 22:40 Pulse Rate 122 H 03/30/24 22:40 Respiratory Rate 26 H 03/30/24 22:40 Blood Pressure 173/95 H 03/30/24 22:40 Pulse Oximetry 94 L 03/30/24 23:04 Oxygen Delivery Method Nasal Cannula 03/30/24 23:04 Oxygen Delivery Flow Rate 4 03/30/24 23:04 MDM - SOB/Dyspnea MDM Narrative Medical decision making narrative: patient described IV left arm infiltrating and his arm swelling prior to discharged. At home the arm swelled some more and he came in. Exam c/w SQ fluid. No clinical evidence supporting cellulitis of DVT. arm is not tender or warm. No palpable cords patient reassured. Was given dose of solumedrol for his known COPD. repeat Cxray with infiltrate right chest that has improved some Lab Data Labs: Lab Results 03/30/24 Range/Units 22:45 WBC 13.2 H (4.0-11.0) 10^3/uL RBC 3.30 L (4.70-6.10) 10^6/uL Hgb 10.1 L (14.0-18.0) g/dL Hct 30.0 L (42.0-54.0) % MCV 90.9 (80.0-94.0) fL MCH 30.6 (25.9-34.0) pg MCHC 33.7 (29.9-35.2) g/dL RDW 13.4 (11.0-15.0) % Plt Count 217 (150-450) 10^3/uL MPV 11.5 (9.5-13.5) fL Neut % (Auto) 95.2 H (43.0-75.0) % Lymph % (Auto) 1.2 L (20.5-60.0) % [place] % (Auto) 3.0 (1.7-12.0) % Eos % (Auto) 0.0 L (0.9-7.0) % Baso % (Auto) 0.2 (0.2-2.0) % Neut # (Auto) 12.6 H (1.4-6.5) 10^3/uL Lymph # (Auto) 0.2 L (1.2-3.8) 10^3/uL [place] # (Auto) 0.4 (0.3-0.8) 10^3/uL Eos # (Auto) 0.0 (0.0-0.7) 10^3/uL Baso # (Auto) 0.0 (0.0-0.1) 10^3/uL Abs Immat Gran (auto) 0.05 H (0.00-0.03) 10^3/uL Imm/Tot Granulo (auto) 0.4 (0.0-0.5) % Discharge Plan Discharge Chief Complaint: Shortness of Breath/Dyspnea Clinical Impression: Edema of left upper extremity, COPD (chronic obstructive pulmonary disease) Patient Disposition: Home, Self-Care Prescriptions / Home Meds: No Action atorvastatin 40 mg tablet 40 mg PO DAILY cilostazol 100 mg tablet 100 mg PO BID clopidogrel 75 mg tablet 75 mg PO DAILY isosorbide mononitrate 30 mg tablet extended release 24 hr 30 mg PO DAILY metoprolol tartrate 25 mg tablet 50 mg PO Q12H Lumakras 320 mg tablet 960 mg PO Q24H fentanyl 100 mcg/hr patch 72 hour 1 patch topical Q72H olanzapine 10 mg tablet 10 mg PO .QHS venlafaxine 37.5 mg capsule,extended release 24hr 37.5 mg PO .QD gabapentin 100 mg capsule 100 mg PO TID albuterol sulfate 90 mcg/actuation HFA aerosol inhaler 2 puff INHALATION Q4H PRN (Reason: shortness of breath or wheezing) levofloxacin 750 mg tablet 750 mg PO DAILY 5 Days Qty: 5 0RF prednisone 20 mg tablet 20 mg PO BID 5 Days Qty: 10 0RF Eliquis 5 mg tablet 5 mg PO BID Qty: 60 0RF Print Language: Faroese Instructions: COPD (Chronic Obstructive Pulmonary Disease) (ED), Edema (ED) Additional Instructions: follow up with your doctor in next couple of days for recheck Referrals: ENRIQUE ESPOSITO [Primary Care Provider] - 1 week
[2024-03-31 01:30] LABS: Basophils Percent Auto 0.2 % (0.2-2.0); Hemoglobin 10.1 g/dL (14.0-18.0); Immature Granulocytes Abs Auto 0.05 10^3/uL (0.00-0.03); Immature Granulocytes Pct Auto 0.4 % (0.0-0.5); Lymphocytes Absolute Auto 0.2 10^3/uL (1.2-3.8); Lymphocytes Percent Auto 1.2 % (20.5-60.0); Mean Corpuscular HGB Conc 33.7 g/dL (29.9-35.2); Mean Corpuscular Hemoglobin 30.6 pg (25.9-34.0); Mean Corpuscular Volume 90.9 fL (80.0-94.0); Mean Platelet Volume 11.5 fL (9.5-13.5); Monocytes Absolute Auto 0.4 10^3/uL (0.3-0.8); Neutrophils Absolute Auto 12.6 10^3/uL (1.4-6.5); Neutrophils Percent Auto 95.2 % (43.0-75.0); Platelet Count 217 10^3/uL (150-450); Red Cell Distribution Width 13.4 % (11.0-15.0); White Blood Count 13.2 10^3/uL (4.0-11.0)
[2024-03-31] MEDS: METHYLPREDNISOLONE SOD SUCC PF 125 MG/2 ML VIAL IVP (01:33)
[2024-03-31 01:43] LABS: Anion Gap 13.7; Calcium 9.2 mg/dL (8.5-10.1); Carbon Dioxide 27.1 mmol/L (21.0-32.0); Chloride 102 mmol/L (98-107); Estimated GFR (African America >60 (>=60); Estimated GFR (Non-African Ame 58 (>=60); Glucose 116 mg/dL (74-106); Potassium 3.8 mmol/L (3.5-5.1); Sodium 139 mmol/L (136-145); Troponin I High Sensitivity 41.9 pg/mL (4.0-76.1)
== END 2024-03-31 02:10 | disposition home or self-care (01) ==
PROVIDERS: Emergency Provider Internal Medicine; PCP Nurse Practitioner
DX: R60.0 Localized edema (principal); J44.9 Chronic obstructive pulmonary disease, unspecified; Z99.81 Dependence on supplemental oxygen; Z87.891 Personal history of nicotine dependence
CPT/HCPCS: 36415; 71045; 80048; 84484; 85025; 96374; 99284; J2919

== ENCOUNTER 2024-03-31 14:59 | Outpatient (OUT) | payer MEDICARE, MEDICAID, SELFPAY ==
--- NOTE | 2024-03-31 15:07 | US_ITS ---
[place] [id number] Patient Name: CRISTAL BARRY MRN: [id number] date: 1955 Sex: M Assigned Patient Location: RAD Current Patient Location: RAD Accession/Order Number: [id number] Exam Date: 03/31/2024 15:10 Report Date: 03/31/2024 15:53 At the request of: ENRIQUE ESPOSITO Procedure: US venous doppler UE LT EXAM: US venous doppler UE LT HISTORY: swollen left arm, rule out blood clot COMPARISON: 02/03/2024 TECHNIQUE: Grayscale, color and Doppler FINDINGS: Region: Left arm Thrombus: None Flow: Normal Compressibility: Normal Augmentation: Normal Other: Extensive subcutaneous edema US/US venous doppler UE LT IMPRESSION: No deep or superficial vein thrombus identified in the left arm Electronically authenticated by: BRANDON HENRY Date: 03/31/2024 15:53
== END 2024-03-31 15:00 | disposition home or self-care (01) ==
LOC: RAD 15:00
PROVIDERS: PCP Nurse Practitioner; Visit Provider Nurse Practitioner
DX: R60.0 Localized edema (principal)
CPT/HCPCS: 93971

== ENCOUNTER 2024-04-02 02:23 | Inpatient (IN) | payer MEDICARE, MEDICAID, SELFPAY ==
[2024-04-02] VITALS (19 sets, daily range): BP systolic 102–210; BP diastolic 71–110; PULSE 61–150; TEMP 36.6–36.9; O2SAT 55–99; BMI 20.4; BMI 17.5
--- NOTE | 2024-04-02 02:42 | ED.AMS1 ---
HPI - Altered Mental Status General Chief Complaint: Altered Mental Status Stated Complaint: SOB Time Seen by Provider: 04/02/24 02:26 Source: family Mode of arrival: Wheelchair History of Present Illness HPI narrative: 02 dependent COPD and history of CA. family states he is removing his 02 at home. He has been confused. No fever or chest pain still has edema of the left arm. patient is restless Related Data Home Medications ?Medication ?Instructions ?Recorded ?Confirmed atorvastatin 40 mg tablet 40 mg PO DAILY 07/05/23 04/02/24 cilostazol 100 mg tablet 100 mg PO BID 07/05/23 04/02/24 clopidogrel 75 mg tablet 75 mg PO DAILY 07/05/23 04/02/24 isosorbide mononitrate 30 mg 30 mg PO DAILY 07/05/23 04/02/24 tablet,extended release 24 hr metoprolol tartrate 25 mg tablet 50 mg PO Q12H 07/05/23 04/02/24 sotorasib 320 mg tablet (Lumakras) 960 mg PO Q24H 07/05/23 04/02/24 albuterol sulfate 90 mcg/actuation 2 puff inhalation Q4H PRN 03/28/24 04/02/24 aerosol inhaler shortness of breath or wheezing fentanyl 100 mcg/hr transdermal 1 patch topical Q72H 03/28/24 04/02/24 patch gabapentin 100 mg capsule 100 mg PO TID 03/28/24 04/02/24 olanzapine 10 mg tablet 10 mg PO .QHS 03/28/24 04/02/24 venlafaxine 37.5 mg 37.5 mg PO .QD 03/28/24 04/02/24 capsule,extended release 24 hr Previous Rx's ?Medication ?Instructions ?Recorded apixaban 5 mg tablet (Eliquis) 5 mg PO BID #60 tabs 03/30/24 levofloxacin 750 mg tablet 750 mg PO DAILY 5 days #5 tabs 03/30/24 prednisone 20 mg tablet 20 mg PO BID 5 days #10 tabs 03/30/24 Allergies Allergy/AdvReac Type Severity Reaction Status Date / Time No Known Drug Allergies Allergy Verified 04/02/24 02:32 Review of Systems ROS Status of ROS 10 or more systems reviewed and unremarkable except as noted in history and below and unobtainable due to mental status Cardiovascular Reports: other (denies chest pain) Respiratory Reports: shortness of breath Neurological Reports: other (denies headache) [facility] Medical History (Updated 04/02/24 @ 06:40 by Chidi Ernst MD) HLD (hyperlipidemia) ?E78.5 - Hyperlipidemia, unspecified (ICD-10) COPD (chronic obstructive pulmonary disease) ?J44.9 - Chronic obstructive pulmonary disease, unspecified (ICD-10) Metastatic non-small cell lung cancer ?C34.90 - Malignant neoplasm of unspecified part of unspecified bronchus or lung (ICD-10) History of pulmonary embolism ?Z86.711 - Personal history of pulmonary embolism (ICD-10) CAD (coronary artery disease) ?I25.10 - Atherosclerotic heart disease of [place] coronary artery without angina pectoris (ICD-10) PAD (peripheral artery disease) ?I73.9 - Peripheral vascular disease, unspecified (ICD-10) Surgical History (Updated 03/28/24 @ 11:54 by Shaikh Marium MD) H/O pneumonectomy ?Z98.890 - Other specified postprocedural states (ICD-10) ?Z90.2 - Acquired absence of lung [part of] (ICD-10) Hx of CABG ?Z95.1 - Presence of aortocoronary bypass graft (ICD-10) Social History (Updated 03/28/24 @ 11:55 by Shaikh Marium MD) Within the past year, how often did you have a drink containing alcohol: monthly or less Within the past year, how many standard drinks containing alcohol did you have on a typical day: 1 or 2 Within the past year, how often did you have six or more drinks on one occasion: never Total score: 0 Score interpretation: A score less than 4 is consistent with normal alcohol consumption. Smoking status: Former smoker Non-prescribed substance use: denies use Highest level of school completed/degree received: high school graduate Little interest or pleasure in doing things: several days Feeling down, depressed, or hopeless: not at all Exam Constitutional Vital Signs, click to edit/add: Last Vital Signs Temp 98.1 F 04/02/24 02:33 Pulse 110 H 04/02/24 05:44 Resp 20 04/02/24 05:44 BP 168/94 H 04/02/24 05:44 Pulse Ox 95 04/02/24 05:44 O2 Del Method Nasal Cannula 04/02/24 05:44 O2 Flow Rate 3 04/02/24 05:44 Common normals: no apparent distress, average body habitus and alert HENMT Common normals: normocephalic and head/scalp atraumatic Eye Common normals: EOMs intact bilaterally Respiratory Other: diminished breath sounds Cardio Rate: tachycardic GI Common normals: Normal to inspection, nondistended, normoactive bowel sounds present and soft to palpation Extremity Other: edema LUE. no erythema or warmth Neuro Common normals: CN's II-XII intact bilaterally, moves all extremities and no focal motor deficits Sensorium/orientation: awake and alert Course Vital Signs Vital signs: Vital Signs Temperature 98.1 F 04/02/24 02:33 Pulse Rate 106 H 04/02/24 02:33 Respiratory Rate 22 H 04/02/24 02:33 Blood Pressure 171/71 H 04/02/24 02:33 Pulse Oximetry 93 L 04/02/24 02:33 Oxygen Delivery Method Nasal Cannula 04/02/24 02:33 Oxygen Delivery Flow Rate 3 04/02/24 02:33 Temperature 98.1 F 04/02/24 02:33 Pulse Rate 110 H 04/02/24 05:44 Respiratory Rate 20 04/02/24 05:44 Blood Pressure 168/94 H 04/02/24 05:44 Pulse Oximetry 95 04/02/24 05:44 Oxygen Delivery Method Nasal Cannula 04/02/24 05:44 Oxygen Delivery Flow Rate 3 04/02/24 05:44 MDM - Altered Mental Status MDM Narrative Medical decision making narrative: patient with known lung CA and COPD. 02 dependent. Recent diagnosis of PE and pneumonia. Confused at home. Removing 02. Family states he is not acting like himself. In the department he is restless. Will lay down when directed and shortly afterwards has to be re directed to lay down again as he is getting up. On Eliquis for PE. not sure if he is taking his medication. CA being treated at [facility]. he required Haldol and ativan to relax him to perform CT of brain and chest. labs reveal anemia which is new for him. CT brain without acute findings. CT chest redemonstrates known PE and cancer. UA pending UA results without evidence of infection. Patient remains confused and is now 1/2 out of the bed. Patient helped back into the bed and the bed placed in reverse Trendelenburg to keep him in the bed. Family called to discuss patient's condition and high likelihood that his confusion is related to his cancer. Family has not called back. Discussed with Dr Causey and will plan obs admission for now Lab Data Labs: Lab Results 04/02/24 04/02/24 04/02/24 Range/Units 02:55 03:17 05:39 WBC 7.3 (4.0-11.0) 10^3/uL RBC 2.82 L (4.70-6.10) 10^6/uL Hgb 8.5 L (14.0-18.0) g/dL Hct 26.1 L (42.0-54.0) % MCV 92.6 (80.0-94.0) fL MCH 30.1 (25.9-34.0) pg MCHC 32.6 (29.9-35.2) g/dL RDW 13.5 (11.0-15.0) % Plt Count 228 (150-450) 10^3/uL MPV 10.7 (9.5-13.5) fL Seg Neuts % (Manual) 93.0 H (43.0-75.0) Band Neutrophils % 1.0 (0-5) % Lymphocytes % (Manual) 3.0 L (20.5-60.0) % Atypical Lymphs % (Man) 2.0 % Monocytes % (Manual) 1.0 L (1.7-12.0) % Eosinophils % (Manual) 0.0 L (0.9-7.0) % Basophils % (Manual) 0.0 L (0.2-2.0) % Neutrophils # (Manual) 6.78 H (1.4-6.5) 10^3/uL Band Neutrophils # 0.1 (0.0-0.3) 10^3/uL Lymphocytes # (Manual) 0.21 L (1.20-3.80) 10^3/uL Abs Atypical Lymphs Man 0.14 Monocytes # (Manual) 0.07 L (0.30-0.80) 10^3/uL Eosinophils # (Manual) 0.00 (0.00-0.70) 10^3/uL Basophils # (Manual) 0.00 (0.00-0.10) 10^3/uL Toxic Granulation 2+ Hypochromasia 3+ Puncture Site R brachial ABG pH 7.526 H* (7.350-7.450) ABG pCO2 31.8 L (35.0-45.0) mmHg ABG pO2 62.3 L (80.0-100.0) mmHg ABG HCO3 26.3 H (22.0-26.0) mmol/L ABG O2 Saturation 93.4 % ABG Base Excess 3.5 H (-2.0-2.0) mmol/L Ralph Test Positive (POSITIVE) O2 Liters/Min 3 Sodium 140 (136-145) mmol/L Potassium 3.4 L (3.5-5.1) mmol/L Chloride 102 (98-107) mmol/L Carbon Dioxide 31.4 (21.0-32.0) mmol/L Anion Gap 10.0 BUN 45.0 H (7.0-18.0) mg/dL Creatinine 1.15 (0.70-1.30) mg/dL Est GFR ( Amer) >60 (>=60) Est GFR (Non-Af Amer) >60 (>=60) BUN/Creatinine Ratio 39.1 Glucose 115 H (74-106) mg/dL Calcium 8.8 (8.5-10.1) mg/dL Total Bilirubin 0.8 (0.2-1.0) mg/dL Direct Bilirubin 0.2 (0.0-0.2) mg/dL AST 18 (15-37) U/L ALT 42 (16-63) U/L Alkaline Phosphatase 70 (46-116) U/L Ammonia <10 L (11-32) umol/L Troponin I High Sens 31.8 (4.0-76.1) pg/mL Total Protein 6.1 L (6.4-8.2) g/dL Albumin 2.4 L (3.4-5.0) g/dL Globulin 3.7 g/dL Albumin/Globulin Ratio 0.6 Urine Color Lt. yellow (YELLOW) Urine Clarity Clear (CLEAR) Urine pH 6.5 (5.0-9.0) Ur Specific [place] 1.010 (1.005-1.025) Urine Protein Negative (NEG/TRACE) mg/dL Urine Glucose (UA) 100 A (NEGATIVE) mg/dL Urine Ketones Negative (NEGATIVE) mg/dL Urine Occult Blood Negative (NEGATIVE) Urine Nitrite Negative (NEGATIVE) Urine Bilirubin Negative (NEGATIVE) Urine Urobilinogen 0.2 (0.2-1.0) EU/dL Ur Leukocyte Esterase Negative (NEGATIVE) Ethanol Quant <3 mg/dL Imaging Data Chest x-ray: Radiologist's impression: ITS Impressions Head CT 04/02/24 02:45 IMPRESSION: Images mild degraded due to motion.4 1. Changes of chronic small vessel ischemia in the periventricular white matter with secondary bilateral cerebral cortical atrophy. 2. No acute intracranial pathology. Electronically authenticated by: DEIRDRE SHINE Date: 04/02/2024 05:04 Chest CTA 04/02/24 03:35 IMPRESSION: 1. Stable appearance of now subacute segmental and subsegmental right lower lobe branch PE. No new thromboembolic disease or developing right heart strain. 2. Redemonstration of multiple malignant masses in the right hilum and inferior right lower lobe extending to several areas in the right lower lobe with probable component of lymphangitic spread of cancer in the right lower lobe. Compared with 03/28/2024, degree of interstitial pattern of disease has improved slightly. Some of this may be due to previous fluid overload and edema from PE. Attention on follow-up imaging. 3. There remains some mild chronic interstitial disease at the right upper lobe and middle lobe. 4. Persistent large malignant left lung central solid mass in lower lobe near left hilar/infrahilar region. Stable chronic changes of partial left lung pneumonectomy. 5. No new findings compared with 03/28/2024 6. COPD and pulmonary emphysema. 7. Prior CABG. Electronically authenticated by: DEIRDRE SHINE Date: 04/02/2024 05:15 Discharge Plan Discharge Chief Complaint: Altered Mental Status Clinical Impression: Altered mental state, Pulmonary emboli, Lung cancer, Edema of left forearm, Anemia Patient Disposition: Admitted as Observation Prescriptions / Home Meds: No Action atorvastatin 40 mg tablet 40 mg PO DAILY cilostazol 100 mg tablet 100 mg PO BID clopidogrel 75 mg tablet 75 mg PO DAILY isosorbide mononitrate 30 mg tablet extended release 24 hr 30 mg PO DAILY metoprolol tartrate 25 mg tablet 50 mg PO Q12H Lumakras 320 mg tablet 960 mg PO Q24H fentanyl 100 mcg/hr patch 72 hour 1 patch topical Q72H olanzapine 10 mg tablet 10 mg PO .QHS venlafaxine 37.5 mg capsule,extended release 24hr 37.5 mg PO .QD gabapentin 100 mg capsule 100 mg PO TID albuterol sulfate 90 mcg/actuation HFA aerosol inhaler 2 puff INHALATION Q4H PRN (Reason: shortness of breath or wheezing) levofloxacin 750 mg tablet 750 mg PO DAILY 5 Days Qty: 5 0RF prednisone 20 mg tablet 20 mg PO BID 5 Days Qty: 10 0RF Eliquis 5 mg tablet 5 mg PO BID Qty: 60 0RF Print Language: Citizen Of [place] Referrals: ENRIQUE ESPOSITO [Primary Care Provider] - 1 week
--- NOTE | 2024-04-02 02:43 | PC.NURSE ---
Patient alert with periods of confusion, answers questions appropriately but then starts talking about other subjects. Family reports patient is frequently taking off oxygen and frequently having periods of confusion that has progressively worsened tonight.
--- NOTE | 2024-04-02 02:45 | ECG_ITS ---
[facility] Test Date: 2024-04-02 Pat Name: CRISTAL BARRY Department: Room: - Gender: Male [employer]ic: : 1955 Requested By: [id number] Order Number: [id number] Reading MD: MILAGRO GARAY Measurements Intervals [place] Rate: 105 P: 45 MI: 124 QRS: 75 QRSD: 86 T: 83 QT: 368 QTc: 429 Interpretive Statements 1120 Sinus tachycardia 6220 Possible left atrial enlargement 0102 ARTIFACT PRESENT 9140 abnormal rhythm ECG Compared to ECG 03/28/2024 03:49:52 Right-axis deviation no longer present Electronically Signed On 04-02-2024 6:52:18 EDT by MILAGRO GARAY
--- NOTE | 2024-04-02 02:45 | CT_ITS ---
[address] [address] Patient Name: CRISTAL BARRY MRN: [id number] date: 1955 Sex: M Assigned Patient Location: ER Current Patient Location: .[facility] Accession/Order Number: [id number] Exam Date: 04/02/2024 04:30 Report Date: 04/02/2024 05:04 At the request of: MISTI EISENBERG Procedure: CT head/brain wo con CT OF THE BRAIN WITHOUT CONTRAST: 04/02/2024 4:30 AM EDT HISTORY: 69-year-old male. R41.82; altered mental status. History of lung cancer. TECHNIQUE: Contiguous axially collimated images were obtained through the intracranial compartment, from the vertex through the foramen magnum. Coronal and Sagittal reformatted images were prepared on a separate workstation and reviewed on the PACS for anatomic correlation. No contrast was administered. This CT exam was performed using one or more of the following dose reduction techniques: Automated exposure control, adjustment of the mA and/or kV according to patient size, or use of iterative reconstruction technique. Thin section coronal and sagittal images were reconstructed from the axial data set. All images were reviewed and interpreted. COMPARISON: CT brain without 11/16/2021 FINDINGS: Slight motion artifact limited. There is no intracranial hemorrhage or abnormal extra-axial fluid collection. To the extent of evaluated with noncontrast technique, there is no mass lesion appreciated. There is no mass-effect or shift of midline structures. There is global brain volume loss with prominence of the ventricles and CSF spaces. There is no evidence of hydrocephalus. There is no effacement of the basal cisterns. No evidence of acute ischemia. Patchy white matter low attenuation is nonspecific, but likely related to chronic small vessel ischemic change. There is no evidence of a lacunar infarct. The posterior fossa, brain stem, and fourth ventricle are normal. There is no tonsillar ectopy. The calvarium is intact, without destructive lesion or depressed fracture. The mastoid air cells are well-aerated. The paranasal sinuses are normally aerated. CT/CT head/brain wo con IMPRESSION: Images mild degraded due to motion.4 1. Changes of chronic small vessel ischemia in the periventricular white matter with secondary bilateral cerebral cortical atrophy. 2. No acute intracranial pathology. Electronically authenticated by: DEIRDRE SHINE Date: 04/02/2024 05:04
--- OUTSIDE RECORDS SUMMARY | 2024-04-02 02:46 | XMS_ITS | CCD ---
Author Organization [facility] Care Team Providers Care Appointment Specialist Name Role Phone UNKNOWN, PROVIDER Admitting Unavailable UNKNOWN, PROVIDER Attending Unavailable CHRISTINA AZLU Referring Unavailable CHRISTINA AZUL Primary Care Unavailable Adalgisa KHOURY, Heba Unavailable Christina Azul MD Primary Care Provider Tip KHOURY, Umdominique Unavailable [phone] Nina Grigsby MD R Unavailable Paul SHEET METAL WORK FURNACE INSTALLER.Sher VILLEDAy Unavailable Fredi PAYNE, Denita Unavailable Adalgisa KHOURY, Heba Unavailable Christina Azul MD Primary Care Provider Tpi KHOURY, Umur Unavailable Seb KHOURY, Nina R Unavailable [phone] Paul SHEET METAL WORK FURNACE INSTALLER.Sher VILLEDAy Unavailable Fredi PAYNE, Denita Unavailable [phone] AMRITA Swann Attending Provider NO FAMILY, PHYSICIAN Primary Care Provider Unava ilable Adalgisa KHOURY, Heba Unavailable Christina Azul MD Primary Care Provider Fredi PAYNE, Denita Unavailable [phone] Christina Azul MD Primary Care Provider Adalgisa KHOURY, Heba Unavailable Christina Azul MD Primary Care Provider [phone] Tip KHOURY, Umdominique Unavailable [phone] Seb KHOURY, Nina Naranjo Unavailable Paul SHEET METAL WORK FURNACE INSTALLERPatricia FOSTER Unavailable [phone] Fredi PAYNE, Denita Unavailable [phone] [employer] [place] Consulting Unavailable ERICKA ., VILMA [...] Mcgee Consulting Unavailable JOSUE SINGH Consulting Unavailable HARMONY, [...] Care Unavailable MOUKAROSANNE, DR MAHARAJ Attending Unavailable MOUKAROSANNE, DR MAHARAJ Admitting Unavailable CARL, DR BRANDON [...] Unavailable ENGELEMarcella, DR JONATHAN Foster Admitting Unavailable ENGELER, DR JONATHAN Foster Consulting Unavailable CARL, DR [...] Unavailable PAUL, DR PATRICIA Ramires Admitting Unavailable JONATHAN CHANEY Referring Unavailable JONATHAN CHANEY Referring Unavailable JONATHAN CHANEY Referring Unavailable JONATHAN CHANEY Attending Unavailable JONATHAN CHANEY Referring Unavailable MD Christina Azul Primary Care Provider OZZIE Angulo Emergency Provider Minna Gavin Unavailable Unavailable Dr. Orlando Acosta Attending Unavailable Unavailable Primary Care Provider Unavailrome Diana MD, Heba Unavailable Fredi RN, Denita Unavailable [phone] Melaniriddewey SHEET METAL WORK FURNACE 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, Estella Kinsey Unavailable Willie PAYNE, Julieth Beatty Unavailable Unavail able Cate SHEET METAL WORK FURNACE 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, Enrique Beatty Primary Care Provider [phone] Cate SHEET METAL WORK FURNACE 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, Enrique Beatty Primary Care Provider NON STAFF Primary Care Provider UnavailMD John Oliveira Emergency Provider Cate SHEET METAL WORK FURNACE 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, Enrique Ramos Primary Care Provider DO Abel De La Cruz Emergency Provider DO Shahbaz Lehman Emergency Provider MD Deborah Lamar Emergency Provider [phone] MD Jair Nichols Admit Provider [phone] MD Jair Nichols Attending Provider DO Davion Allen Other Provider CHRISTINA AZUL Primary Care Unavailable NYDIA PARKS Attending Unavailable CHRISTINA AZUL Primary Care Unavailable ESTELLA FISH Attending UnavailCHRITSINA Arita Primary Care Unavailable ENRIQUE ESPOSITO Primary Care Unavailable NINA GRIGSBY Referring Unavailable Hector LIMON Referring Unavailable CATEENRIQUE WEBB Primary Care Unavailable FAY G ERASTO Attending Unavailable FAY G ERASTO Referring Unavailable CATEENRIQUE WEBB Primary Care Unavailable Hector LIMON Referring Unavailable CATE, ENRIQUE RITA Primary Care Unavailable CATE, ENRIQUE RITA Primary Care Unavailable CATE, ENRIQUE RITA Primary Care Unavailable YUSEF PANDYA Referring Unavailable CATE, ENRIQUE RITA Primary Care Unavailable MERARY LUCAS Attending Unavailable CATE, ENRIQUE RITA Primary Care Unavailable NINA GRIGSBY Referring Unavailable CATE, ENRIQUE RITA Primary Care Unavailable PATRICIA MILLER Attending Unavailable AZUL, [facility] Primary Care Unavailable NINA GRIGSBY Referring Unavailable PATRICIA MILLER Referring Unavailable AZUL, [facility] Primary Care Unavailable AZUL, CHRISTINA EDBERKELEY Primary Care Unavailable NINA GRIGSBY Referring Unavailable AZUL, [facility] Primary Care Unavailable NINA GRIGSBY Referring Unavailable NINA GRIGSBY Attending Unavailable Hector LIMON Attending Unavailable CATE, ENRIQUE RITA Primary Care Unavailable CATE, ENRIQUE RITA Referring Unavailable CATE, ENRIQUE RITA Primary Care Unavailable ESTELLA FISH Attending Unavailrome e ESTELLA FISH Referring Unavailabl e CATE, ENRIQUE RITA Primary Care Unavailable YUSEF PANDYA Referring Unavailable CATE, ENRIQUE RITA Primary Care Unavailable YUSEF PANDYA Attending Unavailable CATE, ENRIQUE RAMOS Referring Unavailable CATE, ENRIQUE RITA Primary Care Unavailable ESTELLA FISH Referring Unavailabl e ESTELLA FISH Attending Unavailabl e AZUL, [facility] Primary Care Unavailable Hector LIMON Attending Unavailable CATE, ENRIQUE RIAT Primary Care Unavailable CATE, ENRIQUE RITA Primary Care Unavailable Hector LIMON Attending Unavailable CATE, ENRIQUE RITA Primary Care Unavailable Hector LIMON Attending Unavailable AZUL, [facility] Primary Care Unavailable NINA GRIGSBY Referring Unavailable AZUL, [facility] Primary Care Unavailable NINA GRIGSBY Attending Unavailable AZUL, CHRISTINA EDBERKELEY Primary Care Unavailable CATE, ENRIQUE RITA Referring Unavailable CATE, ENRIQUE RITA Primary Care Unavailable NINA GRIGSBY Attending Unavailable AZUL, [facility] Primary Care Unavailable Hector LIMON Attending Unavailable AZUL, [facility] Primary Care Unavailable AZUL, CHRISTINA EDBERKELEY Primary Care Unavailable NINA GRIGSBY Attending Unavailable AZUL, CHRISTINA EDBERKELEY Primary Care Unavailable AZUL, CHRISTINA EDBERKELEY Primary Care Unavailable Hector LIMON Attending Unavailable AZUL, [facility] Primary Care Unavailable AZUL, [facility] Primary Care Unavailable NYDIA PARKS Attending Unavailable AZUL, [facility] Primary Care Unavailable CATE, ENRIQUE RITA Primary [...] CATE, ENRIQUE RITA Primary Care Unavailable Hector LMION Attending Unavailable WILMA, [facility] Primary Care Unavailable CATE, ENRIQUERONALD RAMOS Referring Unavailable CATE, ENRIQUE RITA Primary Care Unavailable NINA GRIGSBY Attending Unavailable ESTELLA FISH Attending Unavailabl e ESTELLA FISH Referring Unavailabl e CATE, ENRIQUE RITA Primary Care Unavailable CATE, ENRIQUE RITA Primary Care Unavailable NINA GRIGSBY Referring Unavailable AZUL, [facility] Primary Care Unavailable CATE, ENRIQUE RAMOS Referring Unavailable CATE, ENRIQUE RITA Primary Care Unavailable NINA GRIGSBY Attending Unavailable NINA GRIGSBY Attending Unavailable CATE, ENRIQUE RAMOS Referring Unavailable CATE, ENRIQUE RITA Primary Care Unavailable CATE, ENRIQUE RITA Primary Care Unavailable NINA GRIGSBY Attending Unavailable CATE, ENRIQUE RITA Primary Care Unavailable CATE, ENRIQUE RITA Primary Care Unavailable AZUL, [facility] Primary Care Unavailable AZUL, [facility] Primary Care Unavailable Hector LIMON Referring Unavailable CATE, ENRIQUE RITA Primary Care Unavailable PATRICIA MILLER Attending Unavailable WILMA, [facility] Primary Care Unavailable Hector LIMON Referring Unavailable CATE, ENRIQUE RITA Primary Care Unavailable CATE, ENRIQUERONALD RAMOS Referring Unavailable CATE, ENRIQUE RITA Primary Care Unavailable NINA GRIGSBY Attending Unavailable NINA GRIGSBY Referring Unavailable AZUL [facility] Primary Care Unavailable NINA GRIGSBY Referring Unavailable AZUL [facility] Primary Care Unavailable NINA GRIGSBY Referring Unavailable AZUL [facility] Primary Care Unavailable DAMON TSE Attending Unavailable Hector LIMON Attending Unavailable AZUL [facility] Unavailable NINA GRIGSBY Referring Un[facility] Primary Care Unavailable PATRICIA MILLER Attending Unavailable [facility] Primary Care Unavailable Hector LIMON Attending [facility] Primary Care Unavailable CATE, ENRIQUE RAMOS Primary Care Unavailable Hector LIMON Attending Unavailable CATE, ENRIQUE RAMOS Primary Care Unavailable Hector LIMON Attending Unavailable CATE, ENRIQUE RAMOS Primary Care Unavailable CATE, ENRIQUE RAMOS Primary Care Unavailable Hector LIMON Referring Unavailable CATE, ENRIQUE RAMOS Primary Care Unavailable Hector LIMON Referring Unavailable CATE, ENRIQUE RAMOS Primary Care Unavailable Hector LIMON Attending Unavailable CATE, ENRIQUE RAMOS Primary Care Unavailable Hector LIMON Referring Unavailable CATE, ENRIQUE RAMOS Primary Care Unavailable John Dominguez Attending Unavailable John Dominguez Admitting Unavailable NON STAFF Primary Care Unavailable Abel De La Cruz Attending Unavailable Abel De La Cruz Admitting Unavailable NON STAFF Primary Care Unavailable NON STAFF Primary Care Unavailable Davion Allen Consulting Unavailable Jair Nichols Attending Unavailable Jair Nichols Admitting Unavailable NON STAFF Primary Care Unavailable Shahbaz Lehman Attending Unavailable Shahbaz Lehman Admitting Unavailable Cate, CATHETER BUILDER Enrique L Attending Unavailable Cate, CATHETER BUILDER Enrique L Attending Unavailable Cate, CATHETER BUILDER Enrique L Attending Unavailable Cate, CATHETER BUILDER Enrique L Attending Unavailable Cate, CATHETER BUILDER Enrique L Attending Unavailable Cate, CATHETER BUILDER Enrique L Attending Unavailable Cate, CATHETER BUILDER Enrique L Attending Unavailable Cate, CATHETER BUILDER Enrique L Attending Unavailable Cate, CATHETER BUILDER Enrique L Attending Unavailable Cate, CATHETER BUILDER Enrique L Attending Unavailable Cate, CATHETER BUILDER Enrique L Attending Unavailable Cate, CATHETER BUILDER Enrique L Attending Unavailable Cate, CATHETER BUILDER Enrique L Attending Unavailable Cate, CATHETER BUILDER Enrique L Attending Unavailable Cate, CATHETER BUILDER Enrique L Attending Unavailable Cate, SAILAJA Beatty Attending Unavailable Ctae, SAILAJA Beatty Attending Unavailable Medications Current Medications Medication Drug Class(es) Dates Sig (Normalized) Sig (Original) [id number] 200 actuat albuterol 0.09 mg/actuat metered dose [...] on above: Take 1 tablet by gabe three times daily. cilostazol 100 mg oral [...] on above: Take 1 tablet by gabe twice daily. Take 100 mg by mouth twice daily. ciprofloxacin 500 mg oral tablet (2 sources) Quinolone Antimicrobial Start: 01-15-20 End: 01-22-20 take 1 tablet by mouth twice daily ciprofloxacin HCl (CIPRO) 500 mg tablet Take 1 tablet by mouth twice daily for 7 days. 14 tablet 0 01/14/2022 01/21/2022 Active Comment on above: Take 1 tablet by gabe twice daily for 7 days. ciprofloxacin 3 [...] mg oral tablet (20 sources) Corticosteroid Start: End: take 1 tablet by mouth twice daily at mealtime dexAMETHasone (DECADRON) 4 mg tablet take 1 tablet by mouth twice daily with meals 30 tablet 1 03/29/2024 Active enteric contrast (will be provided with [...] transdermal system (20 sources) Opioid Agonist Start: End: fentaNYL (DURAGESIC) 100 mcg/hr Indications: Neoplasm related [...] days. Take 1 tablet by gabe th once daily for 10 days. minocycline 50 [...] on above: Take 3 tablets by mo ut once daily. sulfamethoxazole 800 mg / trimethoprim 160 mg oral tablet (20 sources) Dihydrofolate Reductase Inhibitor Antibacterial, Sulfonamide Antimicrobial Start: End: take 1 tablet by mouth twice daily sulfamethoxazole-tr imethoprim (BACTRIM DS,SEPTRA DS) 800-160 mg per tablet Take 1 tablet by mouth twice daily. 0 01/18/2022 03/26/2022 Discontinued (Course of therapy completed) Comment on above: Take 1 tablet by [facility] twice daily. traZODone hydrochloride 50 mg [...] venlafaxine 37.5 mg extended release oral capsule (5 sources) Serotonin and Norepinephrine Reuptake Inhibitor Start: [...] on above: Take 2 tablets by [facility] every 6 hours. acetaminophen 325 mg / [...] of breath. amoxicillin 875 mg oral tablet (13 sources) Penicillin-class Antibacterial Start: 10-15-19 End: 11-06-19 take 1 tablet by mouth every twelve hours amoxicillin (AMOXIL) 875 mg tablet Take 1 tablet by mouth every 12 hours. 10/15/2023 11/06/2023 Discontinued Start: 02-04-2023 End: 03-19-2024 take 500 mg [...] Start: 12-24-2022 take 2 tablets by [facility] once daily, then take 1 tablet [...] for 4 days. TAKE [address] [facility] today, THEN take 1 TABLET once [...] sources) Serotonin and Norepinephrine Reuptake Inhibitor Start: 024 End: take 1 capsule by mouth once [...] on above: Take 1 capsule by [facility] twice daily for 30 days. Take [address] [facility] three times a day for 3 days, THEN 2 capsules three times a day for 3 days, THEN 3 capsules three times a day for 24 days. Take [address] [facility] three times a day for 120 days. Take [address] [facility] three times a day isosorbide dinitrate 10 [...] Comment on above: TAKE 1 TABLET BY [facility] EVERY MORNING and TAKE 1 TABLET BY MOUTH EVERY afternoon Take 30 mg by mouth twice daily. iv contrast (will be provided with radiology test) (8 sources) Start: 10-20-2023 End: 10-21-2023 iv contrast [...] CT contrast administration guidelines link. 1 Each 10/20/2023 10/21/2023 Start: 10-20-2023 End: 10-21-2023 iv [...] for up to 30 days. 180 tablet 11/21/2023 12/21/2023 Discontinued ([facility] [facility]) Start: 06-13-2023 End: 11-21-2023 take 1 tablet by mouth every six hours as needed for pain oxyCODONE IR (ROXICODONE) 5 mg immediate release tablet Indications: Neoplasm related pain Take 1 tablet by mouth every 6 hours as needed for pain for up to 15 days. 60 tablet 10/21/2023 11/05/2023 Discontinued ([employer] Duplicate Med) Start: 06-12-2020 End: 03-28-2021 take 5-10 mg [...] up to 15 days. polyethylene glycol 3350 32152 mg powder for oral solution (4 sources) [...] Coronary atherosclerosis; Translations: [Atherosclerotic heart disease of [place] coronary artery without angina pectoris] Onset: 2 [...] malignant neoplasm] Episodic Other aftercare (1 source) predatory animal exterminator (current) use of aspirin; Translations: [RESIDENTIAL CURRENT USE OF ASPIRIN] Onset: 3 Episodic Other aftercare (1 source) predatory animal exterminator (current) use of antithrombotics/antiplate lets; Translations: [RESIDENTIAL ANTITHROMBOT/ANTIPLATLETS ] Onset: 3 Episodic Other aftercare (1 source) Other parts counterman (current) drug therapy; Translations: [OTH DIGITAL ADVERTISING SPECIALIST CURRENT DRUG THERAPY] Onset: 3 Episodic Other aftercare (3 sources) Under care of palliative care physician; Translations: [Encounter for palliative care] 05-16-2023 Episodic Other aftercare (2 sources) Drug therapy finding; Translations: [predatory animal exterminator (current) use of opiate analgesic] 06-13-2023 Episodic [...] Name Value Interpretation Reference Range Facil ity Ambulatory Visit Summaryon 0 03-31-2024 Ambulatory Visit Summary Ambulatory Visit Summary CRISTAL GU :1955 Visit Date:03/31/2024 Ambulatory Visit Instructions Your Diagnosis BMI less than 19,adult Former smoker Your Care Team Attending Physician - Enrique Austin Primary Care Physician - Enrique Austin This Is Your Medications List alprazolam (alprazolam 0.5 mg Tab) apixaban (Eliquis 5 mg oral tablet) atorvastatin (atorvastatin 40 mg Tab) cilostazol (cilostazol 100 mg Tab) clopidogrel (clopidogrel 75 mg Tab) dexamethasone (dexamethasone 4 mg Tab) isosorbide mononitrate (isosorbide mononitrate 30 mg ER Tab) levofloxacin (levofloxacin 750 mg Tab) levothyroxine (levothyroxine 75 mcg (0.075 mg) Tab) metoprolol (metoprolol 25 mg ER Tab) olanzapine (olanzapine 5 mg oral tablet, disintegrating) oxycodone (oxycodone 10 mg oral tablet) predniSONE (predniSONE 20 mg Tab) pregabalin (pregabalin 75 mg Cap) sotorasib (Lumakras 320 mg oral tablet) trazodone (traZODONE 50 mg Tab) Procedures Performed CABG (Coronary artery bypass grafting) planned, Lobectomy of lung. Discharge Vitals Temperature (Temporal Artery) 36.9 ?C Heart Rate (Peripheral) 100 Respiratory Rate 18 Blood Pressure 128/72 Height 169.5 cm Height 67 in Weight 54.5 kg Weight 119.9 lb BMI 18.97 What to do next Scheduled Follow-Up Appointments Friday 10:00 AM EDT With: Enrique Austin Where: [address] [address]- Friday 11:00 AM EDT With: Where: [address] [address]- Medications What How Much When Instructions Unchanged alprazolam (alprazolam 0.5 mg Tab) 1 Tablets By Mouth 3 times a day as needed for for anxiety Unchanged apixaban (Eliquis 5 mg oral tablet) TAKE 2 TABLETS BY MOUTH EVERY 12 HOURS FOR 5 DAYS then TAKE 1 TABLET EVERY 12 HOURS Unchanged atorvastatin (atorvastatin 40 mg Tab) 1 [...] (isosorbide mononitrate 30 mg ER Tab) Unchanged levofloxacin (levofloxacin 750 mg Tab) TAKE 1 TABLET BY MOUTH DAILY FOR 5 DAYS Unchanged levothyroxine (levothyroxine 75 mcg (0.075 mg) [...] PAIN for up to 30 days Unchanged predniSONE (predniSONE 20 mg Tab) TAKE 1 TABLET BY MOUTH TWICE DAILY FOR 5 DAYS Unchanged pregabalin (pregabalin 75 mg Cap) 1 Capsules By Mouth 3 times a day Unchanged sotorasib (Lumakras 320 mg oral tablet) 90 tab(s), 0 Refill(s) Unchanged trazodone (traZODONE 50 mg Tab) TAKE 1 TABLET BY MOUTH AT BEDTIME Allergies No Known Allergies Problems Ongoing - Any problem that you are currently receiving treatment for. Anxiety CAD (coronary artery disease) Chest congestion Emphysema lung Fluid level behind tympanic membrane of both ears Former smoker Insomnia Left arm pain Lung cancer Mass of tongue Numbness of fingers Pharyngitis Rash Sinusitis Patient Survey You may receive a survey via text or e-mail asking about your office visit. Please share your experience with us by completing your survey. We appreciate your feedback and thank you for choosing us for your care. Normal [facility] Family Medicine Office/Clini c Noteon 03-31-2024 Family Medicine Office/Clinic Note Family Medicine Office/Clinic Note Chief Complaint ER f/u HPI Staff Pt presents today for ER followup: Hospital: [facility] Visit date: 03/28/24 & 03/30/24 Symptoms the patient presented with: SOB Current concerns: Lt arm is swollen & painful History of Present Illness pt presents today for TCM. he was hospitalized for PE and pneumonia Review of Systems PHQ Score Initial Depression Screen Score: 0 SCORE Physical Exam Vitals & Measurements T: 36.9 ?C(Temporal Artery) HR: 100(Peripheral) RR: 18 BP: 128/72 SpO2: 87% HT: 67 in HT: 169.5 cm WT: 54.5 kg WT: 119.9 lb BMI: 18.97 General: alert, no acute distress ENMT: oral mucosa moist, no pharyngeal erythema or exudate Cardiovascular: regular rate and rhythm, normal peripheral perfusion Respiratory: Lungs CTA, respirations non labored Extremities: no deformity, no trauma Neurological: oriented x 4, LOC appropriate for age, CN II-XII intact, motor strength equal & normal bilaterally, speech normal Assessment/Plan 1. Pulmonary emboli (I26.99: Other pulmonary embolism without acute cor pulmonale) Discharge and progress notes reviewed. pt continue eliquis. Ordered: [facility]CM [facility] 7 day disch [id number] 2. Lymphedema of arm (I89.0: Lymphedema, not elsewhere classified) left arm is swollen 2 + edema. pt states he had an IV in that arm and the pump beeped all night long. so provider is not sure if this is phlebitis, clot or lymphedema from the cancer. stat order for doppler u/s of left arm faxed to [facility]. Pt will go straight to [facility] for u/s. encouraged him to get a lymphedema sleeve. Ordered: [facility] 7 day disch [id number] 3. Lung cancer (C34.90: Malignant neoplasm of unspecified part of unspecified bronchus or lung) ronchi and wheezing. scheduled to see oncology on 04-08. has PET scan scheduled 04/19 Ordered: [facility] 7 day disch [id number] 4. Emphysema lung (J43.9: Emphysema, unspecified) O2 on at 2 liters Ordered: [facility] 7 day disch [id number] 5. Pneumonia (J18.9: Pneumonia, unspecified organism) pt continues antibiotics prescribed by hospital Ordered: [facility] 7 day disch [id number] 6. BMI less than 19,adult (Z68.1: Body mass index [BMI] 19.9 or less, adult) pt continue drinking protein shakes Ordered: [facility] 7 day disch [id number] 7. Former smoker (Z87.891: Personal history of nicotine dependence) continue not smoking Ordered: [facility] 7 day disch [id number] Orders: dexamethasone, See Instructions, TAKE 1 TABLET BY MOUTH TWICE DAILY WITH MEALS, # 30 tab(s), Refills(s) 1, Pharmacy: [id number], 169.5, cm, 03/31/24 14:14:00 EDT, Height/Length Dosing, 54.5, kg, 03/31/24 14:14:00 EDT, Weight Dosing Follow-up No qualifying data available Problem List/Past Medical History Ongoing Anxiety CAD (coronary artery disease) Chest congestion Emphysema lung Fluid level behind tympanic membrane of both ears Former smoker Insomnia Left arm pain Lung cancer Lymphedema of arm Mass of tongue Numbness of fingers Pharyngitis Pneumonia Pulmonary emboli Rash Sinusitis Historical No qualifying data Procedure/Surgical History CABG (Coronary artery bypass grafting) planned, Lobectomy of lung. Medications alprazolam 0.5 mg Tab, 0.5 mg= 1 tab(s), Oral, TID, PRN atorvastatin 40 mg Tab, 40 mg= 1 tab(s), Oral, Daily cilostazol 100 mg Tab clopidogrel 75 mg Tab, 75 mg= 1 tab(s), Oral, Daily dexamethasone 4 mg Tab, See Instructions, 1 refills dexamethasone 4 mg Tab Eliquis 5 mg oral tablet isosorbide mononitrate 30 mg ER Tab levofloxacin 750 mg Tab levothyroxine 75 mcg (0.075 mg) Tab, 75 mcg= 1 tab(s), Oral, Daily Lumakras 320 mg oral tablet metoprolol 25 mg ER Tab, 25 mg= 1 tab(s), Oral, BID olanzapine 5 mg oral tablet, disintegrating, 5 mg= 1 tab(s), Oral, Daily oxycodone 10 mg oral tablet predniSONE 20 mg Tab pregabalin 75 mg Cap, 75 mg= 1 cap(s), Oral, TID traZODONE 50 mg Tab Allergies No Known Allergies Social History Alcohol Beer, 3-5 times per week, Household alcohol concerns: No., 04/16/2023 Tobacco Former smoker, quit more than 30 days ago, quit 2022 Tobacco Use:. Never Smokeless Tobacco Use:. Cigarettes, Stopped age 68 Years. Household tobacco concerns: No. Yes, 03/31/2024 Family History Primary malignant neoplasm of lung: Father. Immunizations Vaccine Date Status SARS-CoV-2 (COVID-19) mRNA-1273 vaccine 07/17/2021 Recorded SARS-CoV-2 (COVID-19) mRNA-1273 vaccine 06/19/2021 Recorded SARS-CoV-2 (COVID-19) mRNA-1273 vaccine 12/13/2020 Recorded SARS-CoV-2 (COVID-19) mRNA-1273 vaccine 11/15/2020 Recorded Normal [facility] Comment on above: Result Comment: Elec tronically Signed By: Enrique Austin\.miladys\Date and Time Signed: 03/31/24 15:00 EDT Alanine aminotransferase [En zymatic activity/volume] in Serum or PlasmaOrdered By: Jair Nichols on 03-20-2024 ALT [Catalytic activity/Vol] 9 U/L Normal 7-52 [facility] Comment on above: Performed By: #### C BC, CMP, MG ####[facility] [id number] [id number] [place] Albumin [Mass/volume] in Ser um or Plasma by Bromocresol green (BCG) dye binding methoOrdered By: Jair Nichols on 03-20-2024 Albumin BCG dye [Mass/Vol] 3.3 g/dL Low 3.5-5.7 [facility] Alkaline phosphatase [Enzyma tic activity/volume] in Serum or PlasmaOrdered By: Jair Nichols on 03-20-2024 ALP [Catalytic activity/Vol] 46 U/L Normal 34-104 [facility] Comment on above: Performed By: #### C BC, CMP, MG ####[place] [id number] [address] Aspartate aminotransferase [ Enzymatic activity/volume] in Serum or PlasmaOrdered By: Jair Nichols on 03-20-2024 AST [Catalytic activity/Vol] 11 U/L Low 13-39 [facility] Comment on above: Performed By: #### C BC, CMP, MG ####[place] [id number] [address] Automated basophil %Ordered By: Jair Nichols on 03-20-2024 Basophils/100 WBC (Bld) 0.2 % Normal . [facility] Comment on above: Performed By: #### C BC, CMP, MG ####[place] [address] [place] [id number] [facility] Automated basophil countOrde red By: Jair Nichols on 03-20-2024 Basophils (Bld) [#/Vol] 0.0 10*3/uL Normal 0.0-0.2 [facility] Comment on above: Result Comment: PERF ORMED BY: [facility] [address] [place] [address] PATHOLOGIST IRRIGATION SPECIALIST ALEX CROWLEY M.D. Performed By: #### C BC, CMP, MG ####[place] [id number] [place] [id number] [facility] Automated blood monocyte cou ntOrdered By: Jairadela Nichols on 03-20-2024 Monocytes (Bld) [#/Vol] 0.5 10*3/uL Normal 0.0-0.8 [facility] Comment on above: Performed By: #### C BC, CMP, MG ####[address] Automated eosinophil %Ordere d By: Jair Magdalena on 03-20-2024 Eosinophils/100 WBC (Bld) 0.2 % Normal . [facility] Comment on above: Performed By: #### C BC, CMP, MG ####[address] Automated eosinophil countOr dered By: Jairadela Nichols on 03-20-2024 Eosinophils (Bld) [#/Vol] 0.0 10*3/uL Normal 0.0-0.45 [facility] Comment on above: Performed By: #### C BC, CMP, MG ####[address] Automated monocyte %Ordered By: Jair Magdalena on 03-20-2024 Monocytes/100 WBC (Bld) 8.7 % Normal . [facility] Comment on above: Performed By: #### C BC, CMP, MG ####[address] Automated neutrophil %Ordere d By: Jairadela Nichols on 03-20-2024 Neutrophils/100 WBC (Bld) 82.3 % Normal . [facility] Comment on above: Performed By: #### C BC, CMP, MG ####[address] Bilirubin.total [Mass/volume ] in Serum or PlasmaOrdered By: Jair Magdalena on 03-20-2024 Bilirubin [Mass/Vol] 0.6 mg/dL Normal 0.3-1.0 [facility] Comment on above: Performed By: #### C BC, CMP, MG ####[address] Calcium [Mass/volume] in Ser um or PlasmaOrdered By: Jair Magdalena on 03-20-2024 Calcium [Mass/Vol] 8.8 mg/dL Normal 8.6-10.3 [facility] Comment on above: Performed By: #### C BC, CMP, MG ####[place] [id number] [address] Carbon dioxide, total [Moles /volume] in Serum or PlasmaOrdered By: Jair Nichols on 03-20-2024 CO2 [Moles/Vol] 25.0 mmol/L Normal 21.0-31.0 [facility] Comment on above: Performed By: #### C BC, CMP, MG ####[address] Chloride [Moles/volume] in S juanpablo or PlasmaOrdered By: Jair Nichols on 03-20-2024 Chloride [Moles/Vol] 110 mmol/L High 98-107 [facility] Comment on above: Performed By: #### C BC, CMP, MG ####[place] [id number] [address] Complete Blood Count Auto Di ffon 03-20-2024 Mean Corpuscular HGB Conc 32.8 g/dL Normal 32.5-35.6 [facility] Comment on above: Performed By: #### C BC, CMP, MG ####[address] NRBC% 0.0 /100{WBC} Normal 0-0.5 [facility] Comment on above: Performed By: #### C BC, CMP, MG ####[place] [id number] [facility] Comprehensive Metabolic Pane tim 03-20-2024 Albumin [Mass/Vol] 3.3 g/dL Low 3.5-5.7 [facility] Comment on above: Performed By: #### C BC, CMP, MG ####[place] [id number] [facility] Creatinine Clr Calc Pharmacy 58.50 Normal [facility] Comment on above: Performed By: #### C BC, CMP, MG ####[address] GFR/1.73 sq M.predicted MDRD (S/P/Bld) [Vol rate/Area] mL/min/{1.73_m2} Normal [facility] Comment on above: Performed By: #### C BC, CMP, MG ####[address] Creatinine [Mass/volume] in Serum or PlasmaOrdered By: Jair Nichols on 03-20-2024 Creatinine [Mass/Vol] 0.87 mg/dL Normal 0.70-1.30 [facility] Comment on above: Performed By: #### C BC, CMP, MG ####[address] Erythrocyte distribution wid th [Ratio] by Automated countOrdered By: Jair Nichols on 03-20-2024 Erythrocyte distribution width (RBC) [Ratio] 13.8 % Normal 12.0-14.8 [facility] Comment on above: Performed By: #### C BC, CMP, MG ####[address] Erythrocytes [#/volume] in B lood by Automated countOrdered By: Jair Nichols on 03-20-2024 RBC (Bld) [#/Vol] 3.54 10*6/uL Low 3.90-5.60 [facility] Comment on above: Performed By: #### C BC, CMP, MG ####[address] Glucose [Mass/volume] in Ser um or PlasmaOrdered By: Jair Nichols on 03-20-2024 Glucose [Mass/Vol] 101 mg/dL High 70-100 [facility] Comment on above: ADA recommended refe rence rangeRandom Glucose Reference Range is dependent on time and content of last meal. Glucose of more than 200 mg/dL in a nonstressed, ambulatory subject supports the diagnosis of Diabetes Mellitus. Result Comment: [place] Glucose Reference Range is dependent on time and content of last meal. Glucose of more than 200 mg/dL in a nonstressed, ambulatory subject supports the diagnosis of Diabetes Mellitus. ADA recommended reference range Performed By: #### C BC CMP, MG ####[place] [id number] [address] Hematocrit [Volume Fraction] of Blood by Automated countOrdered By: Jair Nichols on 03-20-2024 Hematocrit (Bld) [Volume fraction] 33.2 % Low 38.8-50.0 [facility] Comment on above: Performed By: #### C BC, CMP, MG ####[address] Hemoglobin [Mass/volume] in BloodOrdered By: Jair Nichols on 03-20-2024 Hemoglobin (Bld) [Mass/Vol] 10.9 g/dL Low 13.0-17.0 [facility] Comment on above: Performed By: #### C BC CMP, MG ####[address] Leukocytes [#/volume] correc nani for nucleated erythrocytes in Blood by Automated counOrdered By: Jair Nichols on 03-20-2024 WBC corrected for nucl RBC Auto (Bld) [#/Vol] 5.8 10*3/uL 4.1-10.5 [facility] Leukocytes [#/volume] in Blo od by Automated countOrdered By: Jair Nichols on 03-20-2024 WBC (Bld) [#/Vol] 5.8 10*3/uL Normal 4.1-10.5 [facility] Comment on above: Performed By: #### C BC, CMP, MG ####[address] Lymphocytes [#/volume] in Bl ood by Automated countOrdered By: Jair Nichols on 03-20-2024 Lymphocytes (Bld) [#/Vol] 0.5 10*3/uL Low 1.00-4.8 [facility] Comment on above: Performed By: #### C BC, CMP, MG ####[address] [place] [address] [facility] Lymphocytes/100 leukocytes i n Blood by Automated countOrdered By: Jair Nichols on 03-20-2024 Lymphocytes/100 WBC (Bld) 8.6 % Normal . [facility] Comment on above: Performed By: #### C BC, CMP, MG ####[place] [id number] [facility] MCH [Entitic mass] by Automa nani countOrdered By: Jair Nichols on 03-20-2024 MCH (RBC) [Entitic mass] 30.7 pg Normal 27.5-35.2 [facility] Comment on above: Performed By: #### C BC, CMP, MG ####[address] MCHC Auto (RBC) [Mass/Vol]Or dered By: Jair Nichols on 03-20-2024 MCHC (RBC) [Mass/Vol] 32.8 g/dL 32.5-35.6 [facility] MCV [Entitic volume] by Auto mated countOrdered By: Jair Nichols on 03-20-2024 MCV (RBC) [Entitic vol] 93.6 fL Normal 83.5-101 [facility] Comment on above: Performed By: #### C BC, CMP, MG ####[place] [id number] [facility] Magnesium [Mass/volume] in S juanpablo or PlasmaOrdered By: Jair Nichols on 03-20-2024 Magnesium [Mass/Vol] 1.8 mg/dL Low 1.9-2.7 [facility] Comment on above: Result Comment: PERF ORMED BY: [facility] [address] [place] [id number] PATHOLOGIST IRRIGATION SPECIALIST ALEX CROWLEY M.D. Performed By: #### C BC, CMP, MG ####[place] [id number] [facility] Neutrophils [#/volume] in Bl ood by Automated countOrdered By: Jair Nichols on 03-20-2024 Neutrophils (Bld) [#/Vol] 4.8 10*3/uL Normal 1.8-7.7 [facility] Comment on above: Performed By: #### C BC, CMP, MG ####[place] [id number] [address] No Panel InformationOrdered By: Jairadela Nichols on 03-20-2024 Estimated GFR (CKD-EPI) > 60.0 mL/Min [facility] Pharmacy Creatinine Clearance (Chem 58.50 [facility] Nucleated erythrocytes [Pres ence] in Blood by Automated countOrdered By: Jair Magdalena on 03-20-2024 Nucleated RBC Auto Ql (Bld) 0.0 /100{WBC} 0-0.5 [facility] Platelet mean volume [Entiti c volume] in Blood by Automated countOrdered By: Jair Magdalena on 03-20-2024 Platelet mean volume (Bld) [Entitic vol] 9.5 fL Normal 6.6-10.1 [facility] Comment on above: Performed By: #### C BC, CMP, MG ####[address] Platelets [#/volume] in Bloo d by Automated countOrdered By: Jairadela Nichols on 03-20-2024 Platelets (Bld) [#/Vol] 236 10*3/uL Normal 150-450 [facility] Comment on above: Performed By: #### C BC, CMP, MG ####[place] [id number] [facility] Potassium [Moles/volume] in Serum or PlasmaOrdered By: Jair Magdalena on 03-20-2024 Potassium [Moles/Vol] 4.1 mmol/L Normal 3.5-5.1 [facility] Comment on above: Performed By: #### C BC, CMP, MG ####[place] [id number] [facility] Protein [Mass/volume] in Ser um or PlasmaOrdered By: Jairadela Nichols on 03-20-2024 Protein [Mass/Vol] 6.3 g/dL Low 6.4-8.9 [facility] Comment on above: Performed By: #### C BC CMP, MG ####[place] [id number] [address] Serum globulin measurement b y calculation (mass/volume)Ordered By: Jair Magdalena on 03-20-2024 Globulin (S) [Mass/Vol] 3.0 g/dL Normal [facility] Comment on above: Performed By: #### C BC, CMP, MG ####[address] Serum or plasma albumin/glob ulin mass ratioOrdered By: Ajir Magdalena on 03-20-2024 Albumin/Globulin [Mass ratio] 1.1 {ratio} Normal [facility] Comment on above: Performed By: #### C BC, CMP, MG ####[address] Serum or plasma anion gap de terminationOrdered By: Jair Magdalena on 03-20-2024 Anion gap [Moles/Vol] 9.1 mmol/L Normal 6.0-15.0 [facility] Comment on above: Performed By: #### C BC, CMP, MG ####[address] Sodium [Moles/volume] in Ser um or PlasmaOrdered By: Jair Magdalena on 03-20-2024 Sodium [Moles/Vol] 140 mmol/L Normal 136-145 [facility] Comment on above: Performed By: #### C BC, CMP, MG ####[address] Urea nitrogen [Mass/volume] in Serum or PlasmaOrdered By: Jair Magdalena on 03-20-2024 Urea nitrogen [Mass/Vol] 20 mg/dL Normal 7-25 [facility] Comment on above: Performed By: #### C BC, CMP, MG ####[address] Activated partial thrombopla stin time (aPTT) in platelet poor plasma by coagulation aOrdered By: Shahbaz Lehman on 03-19-2024 aPTT Coag (PPP) [Time] 29.4 s 25.1-36.5 [facility] Comment on above: A hematocrit value g reater than 55% may lead to inaccurate results in coagulation testing. Patients having hematocrit values >55% require a special collection tube for coagulation studies. Please contact the laboratory at [phone] for redraw instructions. Alanine aminotransferase [En zymatic activity/volume] in Serum or PlasmaOrdered By: Shahbaz Lehman on 03-19-2024 ALT [Catalytic activity/Vol] 12 U/L Normal 7-52 [facility] Comment on above: Performed By: #### P T, PTT, CMP, MG, TSH3, CBC, HS TROP #### [facility] [address] Albumin [Mass/volume] in Ser um or Plasma by Bromocresol green (BCG) dye binding methoOrdered By: Shahabz Lehman on 03-19-2024 Albumin BCG dye [Mass/Vol] 3.7 g/dL 3.5-5.7 [facility] Alkaline phosphatase [Enzyma tic activity/volume] in Serum or PlasmaOrdered By: Shahbaz Lehman on 03-19-2024 ALP [Catalytic activity/Vol] 47 U/L Normal 34-104 [facility] Comment on above: Performed By: #### P T, PTT, CMP, MG, TSH3, CBC, HS TROP #### [facility] [address] Aspartate aminotransferase [ Enzymatic activity/volume] in Serum or PlasmaOrdered By: Shahbaz Lehman on 03-19-2024 AST [Catalytic activity/Vol] 16 U/L Normal 13-39 [facility] Comment on above: Performed By: #### P T, PTT, CMP, MG, TSH3, CBC, HS TROP #### [facility] [address] [place] [address] [place] Automated basophil %Ordered By: Shahbaz Lehman on 03-19-2024 Basophils/100 WBC (Bld) 0.5 % Normal . [facility] Comment on above: Performed By: #### P T, PTT, CMP, MG, TSH3, CBC, HS TROP #### [address] Automated basophil countOrde red By: Shahbaz Lehman on 03-19-2024 Basophils (Bld) [#/Vol] 0.0 10*3/uL Normal 0.0-0.2 [facility] Comment on above: Result Comment: PERF ORMED BY: [place] [address] PATHOLOGIST IRRIGATION SPECIALIST ALEX CROWLEY M.D. Performed By: #### P T, PTT, CMP, MG, TSH3, CBC, HS TROP #### [address] Automated blood monocyte cou ntOrdered By: Shahbaz Lehman on 03-19-2024 Monocytes (Bld) [#/Vol] 0.6 10*3/uL Normal 0.0-0.8 [facility] Comment on above: Performed By: #### P T, PTT, CMP, MG, TSH3, CBC, HS TROP #### [address] Automated eosinophil %Ordere d By: Shahbaz Lehman on 03-19-2024 Eosinophils/100 WBC (Bld) 1.2 % Normal . [facility] Comment on above: Performed By: #### P T, PTT, CMP, MG, TSH3, CBC, HS TROP #### [address] Automated eosinophil countOr dered By: Shahbaz Lehman on 03-19-2024 Eosinophils (Bld) [#/Vol] 0.1 10*3/uL Normal 0.0-0.45 [facility] Comment on above: Performed By: #### P T, PTT, CMP, MG, TSH3, CBC, HS TROP #### [address] Automated monocyte %Ordered By: Shahbaz Lehman on 03-19-2024 Monocytes/100 WBC (Bld) 8.4 % Normal . [facility] Comment on above: Performed By: #### P T, PTT, CMP, MG, TSH3, CBC, HS TROP #### [facility] [address] [place] [address] Automated neutrophil %Ordere d By: Shahbaz Lehman on 03-19-2024 Neutrophils/100 WBC (Bld) 79.6 % Normal . [facility] Comment on above: Performed By: #### P T, PTT, CMP, MG, TSH3, CBC, HS TROP #### [address] Bilirubin Test strip Ql (U)O rdered By: Shahbaz Lehman on 03-19-2024 Bilirubin Ql (U) Negative Negative [facility] Bilirubin.total [Mass/volume ] in Serum or PlasmaOrdered By: Shahbaz Lehman on 03-19-2024 Bilirubin [Mass/Vol] 0.4 mg/dL Normal 0.3-1.0 [facility] Comment on above: Performed By: #### P T, PTT, CMP, MG, TSH3, CBC, HS TROP #### [address] head/brain wo conon 03-19 CT head/brain wo con [facility] [place] [place] [address] CT Scan Report Signed Patient: Cristal Gu MR#: [id number] : 1955 Acct:[id number] Age/Sex: 69 / M ADM Date: 03/19/24 Loc: ER Room: Type: [facility] ER Attending Dr: Copies to: Shahbaz [...] recommended. Impression dictated by: Star Mark Jr., D.O.03/19/2024 11:52 AM Dictation Location: [place] [address] Transcribed By: [facility] 03/19/24 1152 Dictated By: Star Mark Jr, DO 03/19/24 1149 Signed By: 03/19/24 1152 Normal [facility] Calcium [Mass/volume] in Ser um or PlasmaOrdered By: Shahbaz Lehman on 03-19-2024 Calcium [Mass/Vol] 8.9 mg/dL Normal 8.6-10.3 [facility] Comment on above: Performed By: #### P T, PTT, CMP, MG, TSH3, CBC, HS TROP #### [facility] [address] Capillary blood glucose jerson urement by glucometer (mass/volume)Ordered By: Shahbaz Lehman on 03-19-2024 Glucose [Mass/Vol] 85 mg/dL Normal [facility] Comment on above: Random Glucose Refer ence Range is dependent on time and content of last meal. Glucose of more than 200 mg/dL in a nonstressed, ambulatory subject supports the diagnosis of Diabetes Mellitus. Result Comment: [place] Glucose Reference Range is dependent on time and content of last meal. Glucose of more than 200 mg/dL in a nonstressed, ambulatory subject supports the diagnosis of Diabetes Mellitus. PERFORMED BY: [facility] [address] [facility] [place] [address] PATHOLOGIST IRRIGATION SPECIALIST ALEX CROWLEY M.D. Performed By: #### G LUKEITH ####Point of Care testing, Carbon dioxide, total [Moles /volume] in Serum or PlasmaOrdered By: Shahbaz Lehman on 03-19-2024 CO2 [Moles/Vol] 28.6 mmol/L Normal 21.0-31.0 [facility] Comment on above: Performed By: #### P T, PTT, CMP, MG, TSH3, CBC, HS TROP #### [facility] [address] Chloride [Moles/volume] in S juanpablo or PlasmaOrdered By: Shahbaz Lehman on 03-19-2024 Chloride [Moles/Vol] 102 mmol/L Normal 98-107 [facility] Comment on above: Performed By: #### P T, PTT, CMP, MG, TSH3, CBC, HS TROP #### [facility] [address] Color of Urine by AutoOrdere d By: Shahbaz Lehman on 03-19-2024 Color (U) Light-yellow Normal Yellow [facility] Comment on above: Order Comment: Name Collection Type:: Clean-Voided Midstream Performed By: #### U A ####[facility] [place] [address] Complete Blood Count Auto Di ffon 03-19-2024 Mean Corpuscular HGB Conc 33.3 g/dL Normal 32.5-35.6 [facility] Comment on above: Performed By: #### P T, PTT, CMP, MG, TSH3, CBC, HS TROP #### [address] Monocytes/100 WBC (Bld) 19.30 % Normal 0.00-20.00 [facility] Comment on above: Performed By: #### P T, PTT, CMP, MG, TSH3, CBC, HS TROP #### [address] NRBC% 0.0 /100{WBC} Normal 0-0.5 [facility] Comment on above: Performed By: #### P T, PTT, CMP, MG, TSH3, CBC, HS TROP #### [address] Comprehensive Metabolic Pane tim 03-19-2024 Albumin [Mass/Vol] 3.7 g/dL Normal 3.5-5.7 [facility] Comment on above: Performed By: #### P T, PTT, CMP, MG, TSH3, CBC, HS TROP #### [address] Creatinine Clr Calc Pharmacy 50.94 Normal [facility] Comment on above: Performed By: #### P T, PTT, CMP, MG, TSH3, CBC, HS TROP #### [address] GFR/1.73 sq M.predicted MDRD (S/P/Bld) [Vol rate/Area] mL/min/{1.73_m2} Normal [facility] Comment on above: Performed By: #### P T, PTT, CMP, MG, TSH3, CBC, HS TROP #### [address] Creatinine [Mass/volume] in Serum or PlasmaOrdered By: Shahbaz Lehman on 03-19-2024 Creatinine [Mass/Vol] 1.04 mg/dL Normal 0.70-1.30 [facility] Comment on above: Performed By: #### P T, PTT, CMP, MG, TSH3, CBC, HS TROP #### [address] ECG 12 lead ECGon 03-19-2024 ECG 12 lead ECG [facility] [place] [address] [place] [address] Electrocardiograph Report Signed Patient: Cristal Gu MR#: [id number] : 1955 Acct:[id number] Age/Sex: 69 / M ADM Date: 03/19/24 Loc: Room: [address] [place] [address] Type: ADM INOo Attending Dr: Jair Nichols [...] Lateral leads Confirmed by Deborah Lamar MD ([id number]) on 03/19/2024 11:02:32 PM Referred By: Electronically Signed By: Deborah Lamar MD Transcribed By: MUS Signed By Deborah Lamar MD 02/20 2302 Normal [facility] ECG 12 lead ECG [facility] [place] [address] [place] [address] Electrocardiograph Report Signed Patient: Cristal Gu MR#: [id number] : 1955 Acct:[id number] Age/Sex: 69 / M ADM Date: 03/19/24 Loc: ER Room: Type: [facility] ER Attending Dr: Ordering Provider: [...] Sinus rhythm Confirmed by Shahbaz LEHMAN DO ([id number]) on 03/19/2024 4:01:20 PM Referred By: Electronically Signed By: Shahbaz LEHMAN DO Transcribed By: MUS Signed By Shahbaz Lehman DO 0 03/19/24 1601 Normal [facility] Erythrocyte distribution wid th [Ratio] by Automated countOrdered By: Shahbaz Lehman on 03-19-2024 Erythrocyte distribution width (RBC) [Ratio] 13.7 % Normal 12.0-14.8 [facility] Comment on above: Performed By: #### P T, PTT, CMP, MG, TSH3, CBC, HS TROP #### [place] [address] [place] Erythrocytes [#/volume] in B lood by Automated countOrdered By: Shahbaz Lehman on 03-19-2024 RBC (Bld) [#/Vol] 3.61 10*6/uL Low 3.90-5.60 [facility] Comment on above: Performed By: #### P T, PTT, CMP, MG, TSH3, CBC, HS TROP #### [facility] [address] [place] [id number] [place] Glucose [Mass/volume] in Ser um or PlasmaOrdered By: Shahbaz Lehman on 03-19-2024 Glucose [Mass/Vol] 86 mg/dL Normal 70-100 [facility] Comment on above: ADA recommended refe rence rangeRandom Glucose Reference Range is dependent on time and content of last meal. Glucose of more than 200 mg/dL in a nonstressed, ambulatory subject supports the diagnosis of Diabetes Mellitus. Result Comment: [place] Glucose Reference Range is dependent on time and content of last meal. Glucose of more than 200 mg/dL in a nonstressed, ambulatory subject supports the diagnosis of Diabetes Mellitus. ADA recommended reference range Performed By: #### P T, PTT, CMP, MG, TSH3, CBC, HS TROP #### [facility] [address] [place] [id number] [place] Glucose [Mass/volume] in Uri ne by Test stripOrdered By: Shahbaz Lehman on 03-19-2024 Glucose Test strip (U) [Mass/Vol] Normal mg/dL Normal [facility] Hematocrit [Volume Fraction] of Blood by Automated countOrdered By: Shahbaz Lehman on 03-19-2024 Hematocrit (Bld) [Volume fraction] 34.1 % Low 38.8-50.0 [facility] Comment on above: Performed By: #### P T, PTT, CMP, MG, TSH3, CBC, HS TROP #### [facility] [address] [place] [id number] [facility] Hemoglobin Test strip Ql (U) Ordered By: Shahbaz Lehman on 03-19-2024 Hemoglobin Ql (U) Negative Negative [facility] Hemoglobin [Mass/volume] in BloodOrdered By: Shahbaz Lehman on 03-19-2024 Hemoglobin (Bld) [Mass/Vol] 11.3 g/dL Low 13.0-17.0 [facility] [facility] Comment on above: Performed By: #### P T, PTT, CMP, MG, TSH3, CBC, HS TROP #### [facility] [address] [place] [address] [place] INR in Platelet poor plasma by Coagulation assayOrdered By: Shahbaz Lehman on 03-19-2024 INR Coag (PPP) [Relative time] 1.0 {INR} Normal [facility] Comment on above: INR Therapeutic Rang e [...] CMP, MG, TSH3, CBC, HS TROP #### [facility] [address] [place] [address] [place] Ketones [Presence] in Urine by Test stripOrdered By: Shahbaz Lehman on 03-19-2024 Ketones Ql (U) Negative Normal Negative [facility] Comment on above: Order Comment: Name Collection Type:: Clean-Voided Midstream Performed By: #### U A ####[facility] [place] [address] [place] Leukocyte esterase [Presence ] in Urine by Test stripOrdered By: Shahbaz Lehman on 03-19-2024 Leukocyte esterase Test strip Ql (U) Negative Normal Negative [facility] Comment on above: Order Comment: Name Collection Type:: Clean-Voided Midstream Performed By: #### U A ####[place] [address] [place] Leukocytes [#/volume] correc nani for nucleated erythrocytes in Blood by Automated counOrdered By: Shahbaz Lehman on 03-19-2024 WBC corrected for nucl RBC Auto (Bld) [#/Vol] 7.1 10*3/uL 4.1-10.5 [facility] Leukocytes [#/volume] in Blo od by Automated countOrdered By: Shahbaz Lehman on 03-19-2024 WBC (Bld) [#/Vol] 7.1 10*3/uL Normal 4.1-10.5 [facility] Comment on above: Performed By: #### P T, PTT, CMP, MG, TSH3, CBC, HS TROP #### [address] Lymphocytes [#/volume] in Bl ood by Automated countOrdered By: Shahbaz Lehman on 03-19-2024 Lymphocytes (Bld) [#/Vol] 0.7 10*3/uL Low 1.00-4.8 [facility] Comment on above: Performed By: #### P T, PTT, CMP, MG, TSH3, CBC, HS TROP #### [place] [address] [place] Lymphocytes/100 leukocytes i n Blood by Automated countOrdered By: Shahbaz Lehman on 03-19-2024 Lymphocytes/100 WBC (Bld) 10.3 % Normal . [facility] Comment on above: Performed By: #### P T, PTT, CMP, MG, TSH3, CBC, HS TROP #### [place] [address] [place] MCH [Entitic mass] by Automa nani countOrdered By: Shahbza Lehman on 03-19-2024 MCH (RBC) [Entitic mass] 31.4 pg Normal 27.5-35.2 [facility] Comment on above: Performed By: #### P T, PTT, CMP, MG, TSH3, CBC, HS TROP #### [address] MCHC Auto (RBC) [Mass/Vol]Or dered By: Shahbaz Lehman on 03-19-2024 MCHC (RBC) [Mass/Vol] 33.3 g/dL 32.5-35.6 [facility] MCV [Entitic volume] by Auto mated countOrdered By: Shahbaz Lehman on 03-19-2024 MCV (RBC) [Entitic vol] 94.3 fL Normal 83.5-101 [facility] Comment on above: Performed By: #### P T, PTT, CMP, MG, TSH3, CBC, HS TROP #### [facility] [address] [place] [address] [place] Magnesium [Mass/volume] in S juanpablo or PlasmaOrdered By: Shahbaz Lehman on 03-19-2024 Magnesium [Mass/Vol] 1.6 mg/dL Low 1.9-2.7 [facility] Comment on above: Performed By: #### P T, PTT, CMP, MG, TSH3, CBC, HS TROP ####[facility] [address] [place] [address] [place] Monocyte distribution width [Entitic volume] in Blood by AutomatedOrdered By: Shahbaz Lehman on 03-19-2024 Monocyte distribution width Auto (Bld) [Entitic vol] 19.30 % 0.00-20.00 [facility] Neutrophils [#/volume] in Bl ood by Automated countOrdered By: Shahbaz Lehman on 03-19-2024 Neutrophils (Bld) [#/Vol] 5.7 10*3/uL Normal 1.8-7.7 [facility] Comment on above: Performed By: #### P T, PTT, CMP, MG, TSH3, CBC, HS TROP #### [facility] [address] Nitrite Test strip Ql (U)Ord ered By: Shahbaz Lehman on 03-19-2024 Nitrite Ql (U) Negative Negative [facility] No Panel InformationOrdered By: Shahbaz Lehman on 03-19-2024 Estimated GFR (CKD-EPI) > 60.0 mL/Min [facility] Creatinine Clearance (Chem 50.94 [facility] Nucleated erythrocytes [Pres ence] in Blood by Automated countOrdered By: Shahbaz Lehman on 03-19-2024 Nucleated RBC Auto Ql (Bld) 0.0 /100{WBC} 0-0.5 [facility] Partial Thromboplastin Timeo n 03-19-2024 aPTT Coag (Bld) [Time] 29.4 s Normal 25.1-36.5 [facility] Comment on above: Result Comment: A he matocrit value greater than 55% may lead to inaccurate results in coagulation testing. Patients having hematocrit values >55% require a special collection tube for coagulation studies. Please contact the laboratory at [phone] for redraw instructions. PERFORMED BY: [place] [address] PATHOLOGIST IRRIGATION SPECIALIST ALEX CROWLEY M.D. Performed By: #### P T, PTT, CMP, MG, TSH3, CBC, HS TROP #### [address] Platelet mean volume [Entiti c volume] in Blood by Automated countOrdered By: Shahbaz Lehman on 03-19-2024 Platelet mean volume (Bld) [Entitic vol] 9.2 fL Normal 6.6-10.1 [facility] Comment on above: Performed By: #### P T, PTT, CMP, MG, TSH3, CBC, HS TROP #### [address] Platelets [#/volume] in Bloo d by Automated countOrdered By: Shahbaz Lehman on 03-19-2024 Platelets (Bld) [#/Vol] 239 10*3/uL Normal 150-450 [facility] Comment on above: Performed By: #### P T, PTT, CMP, MG, TSH3, CBC, HS TROP #### [place] [address] [place] Potassium [Moles/volume] in Serum or PlasmaOrdered By: Shahbaz Lehman on 03-19-2024 Potassium [Moles/Vol] 3.6 mmol/L Normal 3.5-5.1 [facility] Comment on above: Performed By: #### P T, PTT, CMP, MG, TSH3, CBC, HS TROP #### [address] Protein Test strip (U) [Mass /Vol]Ordered By: Shahbaz Lehman on 03-19-2024 Protein (U) [Mass/Vol] Negative Negative [facility] Protein [Mass/volume] in Ser um or PlasmaOrdered By: Shahbaz Lehman on 03-19-2024 Protein [Mass/Vol] 6.7 g/dL Normal 6.4-8.9 [facility] Comment on above: Performed By: #### P T, PTT, CMP, MG, TSH3, CBC, HS TROP #### [facility] [address] Prothrombin time (PT)Ordered By: Shahbaz Lehman on 03-19-2024 PT Coag (PPP) [Time] 11.6 s Normal 9.0-12.9 [facility] Comment on above: A hematocrit value g reater than 55% may lead to inaccurate results in coagulation testing. Patients having hematocrit values >55% require a special collection tube for coagulation studies. Please contact the laboratory at [phone] for redraw instructions. Result Comment: A he matocrit value greater than 55% may lead to inaccurate results in coagulation testing. Patients having hematocrit values >55% require a special collection tube for coagulation studies. Please contact the laboratory at [phone] for redraw instructions. Performed By: #### P T, PTT, CMP, MG, TSH3, CBC, HS TROP #### [facility] [address] Serum globulin measurement b y calculation (mass/volume)Ordered By: Shahbaz Lehman on 03-19-2024 Globulin (S) [Mass/Vol] 3.0 g/dL [facility] Comment on above: Performed By: #### P T, PTT, CMP, MG, TSH3, CBC, HS TROP #### [facility] [address] Serum or plasma albumin/glob ulin mass ratioOrdered By: Shahbaz Lehman on 03-19-2024 Albumin/Globulin [Mass ratio] 1.2 {ratio} [facility] Comment on above: Performed By: #### P T, PTT, CMP, MG, TSH3, CBC, HS TROP #### [facility] [address] Serum or plasma anion gap de terminationOrdered By: Shahbaz Lehman on 03-19-2024 Anion gap [Moles/Vol] 11.0 mmol/L Normal 6.0-15.0 [facility] Comment on above: Performed By: #### P T, PTT, CMP, MG, TSH3, CBC, HS TROP #### [facility] [address] Sodium [Moles/volume] in Ser um or PlasmaOrdered By: Shahbaz Lehman on 03-19-2024 Sodium [Moles/Vol] 138 mmol/L Normal 136-145 [facility] Comment on above: Performed By: #### P T, PTT, CMP, MG, TSH3, CBC, HS TROP #### [facility] [address] [place] [address] Specific gravity Test strip (U) [Rel density]Ordered By: Shahbaz Lehman on 03-19-2024 Specific gravity (U) [Rel density] 1.010 1.001-1.030 [facility] Thyrotropin [Units/volume] i n Serum or PlasmaOrdered By: Shahbaz Lehman on 03-19-2024 TSH Qn 3.36 m[IU]/L Normal 0.45-5.33 [facility] Comment on above: Result Comment: PERF ORMED BY: [place] [address] PATHOLOGIST IRRIGATION SPECIALIST ALEX CROWLEY M.D. Performed By: #### P T, PTT, CMP, MG, TSH3, CBC, HS TROP ####[place] [id number] [facility] Troponin I High Sensitivityo n 03-19-2024 Troponin I High Sensitivity 18.2 pg/mL Normal 0.0-20.0 [facility] Comment on above: Result Comment: PERF ORMED BY: [place] [address] PATHOLOGIST IRRIGATION SPECIALIST ALEX CROWLEY M.D. Performed By: #### H S TROP ####[place] [id number] [place] Troponin I High Sensitivity 19.4 pg/mL Normal 0.0-20.0 [facility] Comment on above: Result Comment: PERF ORMED BY: [facility] [address] [place] [address] PATHOLOGIST IRRIGATION SPECIALIST ALEX CROWLEY M.D. Performed By: #### P T, PTT, CMP, MG, TSH3, CBC, HS TROP #### [facility] [address] Troponin I.cardiac [Mass/vol ume] in Serum or Plasma by Detection limit <= 0.01 ng/Ordered By: Deborah Lamar on 03-19-2024 Troponin I.cardiac DL <= 0.01 ng/mL [Mass/Vol] 18.2 pg/mL 0.0-20.0 [facility] Troponin I.cardiac [Mass/vol ume] in Serum or Plasma by Detection limit <= 0.01 ng/Ordered By: Shahbaz Lehman on 03-19-2024 Troponin I.cardiac DL <= 0.01 ng/mL [Mass/Vol] 19.4 pg/mL 0.0-20.0 [facility] Urea nitrogen [Mass/volume] in Serum or PlasmaOrdered By: Shahbaz Lehman on 03-19-2024 Urea nitrogen [Mass/Vol] 26 mg/dL High - [facility] Comment on above: Performed By: #### P T, PTT, CMP, MG, TSH3, CBC, HS TROP #### [facility] [address] Urinalysison 03-19-2024 Bilirubin,Urine Negative Normal Negative [facility] Comment on above: Order Comment: Name Collection Type:: Clean-Voided Midstream Performed By: #### U A ####[place] [id number] [address] Glucose Ql (U) Normal Normal Normal [facility] Comment on above: Order Comment: Name Collection Type:: Clean-Voided Midstream Performed By: #### U A ####[place] [address] Nitrite,Urine Negative Normal Negative [facility] Comment on above: Order Comment: Name Collection Type:: Clean-Voided Midstream Performed By: #### U A ####[address] [address] [facility] Occult Blood,Urine Negative Normal Negative [facility] Comment on above: Order Comment: Name Collection Type:: Clean-Voided Midstream Result Comment: PERF ORMED BY: [facility] [address] [place] [id number] PATHOLOGIST IRRIGATION SPECIALIST ALEX CROWLEY M.D. Performed By: #### U A ####[address] [address] [facility] Protein,Urine Negative Normal Negative [facility] Comment on above: Order Comment: Name Collection Type:: Clean-Voided Midstream Performed By: #### U A ####[address] [address] [facility] Specificy [place],Urine 1.010 Normal 1.001-1.030 [facility] Comment on above: Order Comment: Name Collection Type:: Clean-Voided Midstream Performed By: #### U A ####[address] [address] [facility] Urobilinogen,Urine Normal Normal Normal [facility] Comment on above: Order Comment: Name Collection Type:: Clean-Voided Midstream Performed By: #### U A ####[address] [address] [facility] Urine appearanceOrdered By: Shahbaz Lehman on 03-19-2024 Appearance (U) Clear Normal Clear [facility] Comment on above: Order Comment: Name Collection Type:: Clean-Voided Midstream Performed By: #### U A ####[address] [address] [facility] Urobilinogen Test strip (U) [Mass/Vol]Ordered By: Shahbaz Lehman on 03-19-2024 Urobilinogen (U) [Mass/Vol] Normal mg/dL Normal [facility] XR chest 2V*on 03-19-2024 XR chest 2V* [facility] [address] [place] [address] XRay Report Signed Patient: Cristal Gu MR#: [id number] : 1955 Acct:[id number] Age/Sex: 69 / M ADM Date: 03/19/24 Loc: ER Room: Type: [facility] ER Attending Dr: Copies to: Shahbaz [...] FINDINGS. Impression dictated by: Star Mark Jr., DJudiOJudi03/19/2024 11:49 AM Dictation Location: [place] [address] Transcribed By: [facility] 03/19/24 1149 Dictated By: Star Mark Jr, DO 03/19/24 1148 Signed By: 03/19/24 1149 Normal [facility] pH of Urine by Test stripOrd ered By: Shahbaz Lehman on 03-19-2024 pH (U) 6.5 [pH] Normal 5.0-9.0 [facility] Comment on above: Order Comment: Name Collection Type:: Clean-Voided Midstream Performed By: #### U A ####[facility] [address] [place] [address] [facility] CBC W Auto Differential pane l (Bld)on 03-18-2024 Basophils (Bld) [#/Vol] 10*3/uL Normal <0.11 [facility] Comment on above: Order Comment: Speci men Type: BLOOD SPECIMENOrdering Facility: [facility] Address: [address] [place] [address] Performed By: #### 5 7021-8 ####[facility] LABCLIA [id number] [place] [address] Basophils/100 WBC (Bld) 0.2 % Normal [facility] Comment on above: Order Comment: Speci men Type: BLOOD SPECIMENOrdering Facility: [facility] Address: [address] [place] [address] Performed By: #### 5 7021-8 ####[facility] LABCLIA [id number] [place] [address] Differential cell count method Nom (Bld) Auto Normal [facility] Comment on above: Order Comment: Speci men Type: BLOOD SPECIMENOrdering Facility: [facility] Address: [address] [place] [address] Performed By: #### 5 7021-8 ####[facility] LABCLIA [id number] [place] [address] Eosinophils (Bld) [#/Vol] 0.03 10*3/uL Normal <0.46 [facility] Comment on above: Order Comment: Speci men Type: BLOOD SPECIMENOrdering Facility: [facility] Address: [address] [place] [address] Performed By: #### 5 7021-8 ####[facility] LABCLIA [id number] [place] [address] Eosinophils/100 WBC (Bld) 0.3 % Normal [facility] Comment on above: Order Comment: Speci men Type: BLOOD SPECIMENOrdering Facility: [facility] Address: [address] [place] [address] Performed By: #### 5 7021-8 ####[facility] LABCLIA [id number] [place] [address] Erythrocyte distribution width (RBC) [Ratio] 13.2 % Normal 11.5-15.0 [facility] Comment on above: Order Comment: Speci men Type: BLOOD SPECIMENOrdering Facility: [facility] Address: [address] [place] [address] Performed By: #### 5 7021-8 ####[facility] LABCLIA [id number] [place] [address] Hematocrit (Bld) [Volume fraction] 33.8 % Low 39.0-51.0 [facility] Comment on above: Order Comment: Speci men Type: BLOOD SPECIMENOrdering Facility: [facility] Address: [address] [place] [address] Performed By: #### 5 7021-8 ####[facility] LABCLIA [id number] [place] [address] Hemoglobin (Bld) [Mass/Vol] 11.3 g/dL Low 13.0-17.0 [facility] Comment on above: Order Comment: Speci men Type: BLOOD SPECIMENOrdering Facility: [facility] Address: [address] [place] [address] Performed By: #### 5 7021-8 ####[facility] LABCLIA [id number] [place] [address] Immature granulocytes (Bld) [#/Vol] 0.05 10*3/uL Normal <0.10 [facility] Comment on above: Order Comment: Speci men Type: BLOOD SPECIMENOrdering Facility: [facility] Address: [address] [place] [address] Performed By: #### 5 7021-8 ####[facility] LABCLIA [id number] [place] [address] Immature granulocytes/100 WBC (Bld) 0.6 % Normal [facility] Comment on above: Order Comment: Speci men Type: BLOOD SPECIMENOrdering Facility: [facility] Address: [address] [place] [address] Performed By: #### 5 7021-8 ####[facility] LABCLIA [id number] [place] [address] Lymphocytes (Bld) [#/Vol] 0.85 10*3/uL Low 1.00-4.00 [facility] Comment on above: Order Comment: Speci men Type: BLOOD SPECIMENOrdering Facility: [facility] Address: [address] [place] [address] Performed By: #### 5 7021-8 ####[facility] LABCLIA [id number] [place] [address] Lymphocytes/100 WBC (Bld) 9.9 % Normal [facility] Comment on above: Order Comment: Speci men Type: BLOOD SPECIMENOrdering Facility: [facility] Address: [address] [place] [address] Performed By: #### 5 7021-8 ####[facility] LABCLIA [id number] [place] [address] MCH (RBC) [Entitic mass] 31.0 pg Normal 26.0-34.0 [facility] Comment on above: Order Comment: Speci men Type: BLOOD SPECIMENOrdering Facility: [facility] Address: [address] [place] [address] Performed By: #### 5 7021-8 ####[facility] LABCLIA [id number] [place] [address] MCHC (RBC) [Mass/Vol] 33.4 g/dL Normal 30.5-36.0 [facility] Comment on above: Order Comment: Speci men Type: BLOOD SPECIMENOrdering Facility: [facility] Address: [address] [place] [address] Performed By: #### 5 7021-8 ####[facility] LABCLIA [id number] [place] [address] MCV (RBC) [Entitic vol] 92.6 fL Normal 80.0-100.0 [facility] Comment on above: Order Comment: Speci men Type: BLOOD SPECIMENOrdering Facility: [facility] Address: [address] [place] [address] Performed By: #### 5 7021-8 ####[facility] LABCLIA [id number] [place] [address] Monocytes (Bld) [#/Vol] 0.82 10*3/uL Normal <0.87 [facility] Comment on above: Order Comment: Speci men Type: BLOOD SPECIMENOrdering Facility: [facility] Address: [address] [place] [address] Performed By: #### 5 7021-8 ####[facility] LABCLIA [id number] [place] [address] Monocytes/100 WBC (Bld) 9.6 % Normal [facility] Comment on above: Order Comment: Speci men Type: BLOOD SPECIMENOrdering Facility: [facility] Address: [address] [place] [address] Performed By: #### 5 7021-8 ####[facility] LABCLIA [id number] [place] [address] Neutrophils (Bld) [#/Vol] 6.81 10*3/uL Normal 1.45-7.50 [facility] Comment on above: Order Comment: Speci men Type: BLOOD SPECIMENOrdering Facility: [facility] Address: [address] [place] [address] Performed By: #### 5 7021-8 ####[facility] LABCLIA [id number] [place] [address] Neutrophils/100 WBC (Bld) 79.4 % Normal [facility] Comment on above: Order Comment: Speci men Type: BLOOD SPECIMENOrdering Facility: [facility] Address: [address] [place] [address] Performed By: #### 5 7021-8 ####[facility] LABCLIA [id number] [place] [address] Nucleated RBC (Bld) [#/Vol] 10*3/uL Normal <0.01 [facility] Comment on above: Order Comment: Speci men Type: BLOOD SPECIMENOrdering Facility: [facility] Address: [address] [place] [address] Performed By: #### 5 7021-8 ####[facility] LABCLIA [id number] [place] [address] Nucleated RBC/100 WBC (Bld) [Ratio] 0.0 /100 WBC Normal [facility] Comment on above: Order Comment: Speci men Type: BLOOD SPECIMENOrdering Facility: [facility] Address: [address] [place] [address] Performed By: #### 5 7021-8 ####[facility] LABCLIA [id number] [place] [address] Platelet mean volume (Bld) [Entitic vol] 10.4 fL Normal 9.0-12.7 [facility] Comment on above: Order Comment: Speci men Type: BLOOD SPECIMENOrdering Facility: [facility] Address: [address] [place] [address] Performed By: #### 5 7021-8 ####[facility] LABCLIA [id number] [place] [address] Platelets (Bld) [#/Vol] 250 10*3/uL Normal 150-400 [facility] Comment on above: Order Comment: Speci men Type: BLOOD SPECIMENOrdering Facility: [facility] Address: [address] [place] [address] Performed By: #### 5 7021-8 ####[facility] LABCLIA [id number] [place] [address] RBC (Bld) [#/Vol] 3.65 10*6/uL Low 4.20-6.00 [facility] Comment on above: Order Comment: Speci men Type: BLOOD SPECIMENOrdering Facility: [facility] Address: [address] [place] [address] Performed By: #### 5 7021-8 ####[facility] LABCLIA [id number] [place] [address] WBC (Bld) [#/Vol] 8.58 10*3/uL Normal 3.70-11.00 [facility] Comment on above: Order Comment: Speci men Type: BLOOD SPECIMENOrdering Facility: [facility] Address: [address] [place] [address] Performed By: #### 5 7021-8 ####[facility] LABCLIA [id number] [place] [address] CNOVSPon 03-18-2024 CNOVSP Normal [facility] metabolic 2000 panelon 03-18-2024 Albumin [Mass/Vol] 4.2 g/dL Normal 3.9-4.9 [facility] Comment on above: Order Comment: Speci men Type: BLOOD SPECIMENOrdering Facility: [facility] Address: [address] [place] [address] Performed By: #### 2 4323-8 ####[facility] LABCLIA [id number] [place] [address] ALP [Catalytic activity/Vol] 43 U/L Normal 38-113 [facility] Comment on above: Order Comment: Speci men Type: BLOOD SPECIMENOrdering Facility: [facility] Address: [address] [place] [address] Performed By: #### 2 4323-8 ####[facility] LABCLIA [id number] [place] [address] ALT [Catalytic activity/Vol] 7 U/L Low 10-54 [facility] Comment on above: Order Comment: Speci men Type: BLOOD SPECIMENOrdering Facility: [facility] Address: [address] [place] [address] Performed By: #### 2 4323-8 ####[facility] LABCLIA [id number] [place] [address] Anion gap [Moles/Vol] 9 mmol/L Normal 8-15 [facility] Comment on above: Order Comment: Speci men Type: BLOOD SPECIMENOrdering Facility: [facility] [facility] Address: [address] [place] [address] Performed By: #### 2 4323-8 ####[facility] LABCLIA [id number] [place] [address] AST [Catalytic activity/Vol] 11 U/L Low 14-40 [facility] Comment on above: Order Comment: Speci men Type: BLOOD SPECIMENOrdering Facility: [facility] Address: [address] [place] [address] Performed By: #### 2 4323-8 ####[facility] LABCLIA [id number] [place] [address] Bilirubin [Mass/Vol] 0.3 mg/dL Normal 0.2-1.3 [facility] Comment on above: Order Comment: Speci men Type: BLOOD SPECIMENOrdering Facility: [facility] Address: [address] [place] [address] Performed By: #### 2 4323-8 ####[facility] LABCLIA [id number] [place] [address] Calcium [Mass/Vol] 10.0 mg/dL Normal 8.5-10.2 [facility] Comment on above: Order Comment: Speci men Type: BLOOD SPECIMENOrdering Facility: [facility] Address: [address] [place] [address] Performed By: #### 2 4323-8 ####[facility] LABCLIA [id number] [place] [address] Chloride [Moles/Vol] 103 mmol/L Normal 98-107 [facility] Comment on above: Order Comment: Speci men Type: BLOOD SPECIMENOrdering Facility: [facility] Address: [address] [place] [address] Performed By: #### 2 4323-8 ####[facility] LABCLIA [id number] [place] [address] CO2 [Moles/Vol] 27 mmol/L Normal 22-30 [facility] Comment on above: Order Comment: Speci men Type: BLOOD SPECIMENOrdering Facility: [facility] Address: [address] [place] [address] Performed By: #### 2 4323-8 ####[facility] LABCLIA [id number] [place] [address] Creatinine [Mass/Vol] 1.08 mg/dL Normal 0.73-1.22 [facility] Comment on above: Order Comment: Speci men Type: BLOOD SPECIMENOrdering Facility: [facility] Address: [address] [place] [address] Performed By: #### 2 4323-8 ####[facility] LABCLIA [id number] [place] [address] Creatinine and Glomerular filtration rate.predicted panel (S/P/Bld) 75 mL/min/1.73m??? Normal >=60 [facility] Comment on above: Order Comment: Speci men Type: BLOOD SPECIMENOrdering Facility: [facility] Address: [address] [place] [address] Result Comment: Landy mated Glomerular Filtration Rate [...] actual GFR. Performed By: #### 2 4323-8 ####[facility] LABCLIA [id number] [place] [address] Glucose [Mass/Vol] 87 mg/dL Normal 74-99 [facility] Comment on above: Order Comment: Speci men Type: BLOOD SPECIMENOrdering Facility: [facility] Address: [address] [place] [address] Result Comment: The [place] Diabetes Association (ADA) provides guidance for cutoff [...] Standards of Medical Care in Diabetes 2016, [place] Diabetes Association. Diabetes Care. 2016.39(Suppl 1). Performed By: #### 2 4323-8 ####[facility] LABCLIA [id number] [place] [address] Potassium [Moles/Vol] 4.1 mmol/L Normal 3.7-5.1 [facility] Comment on above: Order Comment: Speci men Type: BLOOD SPECIMENOrdering Facility: [facility] Address: [address] [place] [address] Performed By: #### 2 4323-8 ####[facility] LABCLIA [id number] [place] [address] Protein [Mass/Vol] 6.9 g/dL Normal 6.3-8.0 [facility] Comment on above: Order Comment: Speci men Type: BLOOD SPECIMENOrdering Facility: [facility] Address: [address] [place] [address] Performed By: #### 2 4323-8 ####[facility] LABCLIA [id number] [place] [address] Sodium [Moles/Vol] 139 mmol/L Normal 136-144 [facility] Comment on above: Order Comment: Speci men Type: BLOOD SPECIMENOrdering Facility: [facility] Address: [address] [place] [address] Performed By: #### 2 4323-8 ####[facility] LABCLIA [id number] [place] [address] Urea nitrogen [Mass/Vol] 27 mg/dL High 9- [facility] Comment on above: Order Comment: Speci men Type: BLOOD SPECIMENOrdering Facility: [facility] Address: [address] [place], [place] [address] Performed By: #### 2 4323-8 ####[facility] LABCLIA [id number] [place] [address] ECG 12 lead ECGon 03-18-2024 ECG 12 lead ECG [facility] [address] [place] [address] Electrocardiograph Report Signed Patient: Cristal Gu MR#: [id number] : 1955 Acct:[id number] Age/Sex: 69 / M ADM Date: 03/18/24 Loc: ER Room: Type: [facility] ER Attending Dr: Ordering Provider: [...] change was found Confirmed by Jonathan Chan ([id number]) on 03/20/2024 6:35:46 PM Referred By: Electronically Signed By: Jonathan Chan Transcribed By: MUS Signed By Jonathan Chan MD 03/20/24 1835 Normal [facility] TSH SerPl-aCncon 03-18-2024 TSH Qn 6.660 m[IU]/L High 0.270-4.200 [facility] Comment on above: Order Comment: Speci men Type: BLOOD SPECIMENOrdering Facility: [facility] Address: [address] [place], [place] [address] Performed By: #### 3 016-3 ####[facility] LABCLIA [id number] [place] [id number] [place] [facility] Ambulatory Visit Summaryon 0 03-17-2024 Ambulatory Visit [...] 10:00 AM EDT With: Enrique Austin Where: [address] [id number]- Friday 11:00 AM EDT With: Where: [address] [id number]- Medications What How Much When Instructions Unchanged [...] pt was scheduled to see someone at [facility] for his left arm pain but [...] EDT CNOVon 03-15-2024 CNOV Normal [facility] CNPNon 03-15-2024 CNPN Normal [facility] CNPNon 03-09-2024 CNPN Normal [facility] GLUCOSE, BLOOD (POC)on 03-09 Glucose [Mass/Vol] 93 mg/dL 74 - 99 mg/dL [facility] Comment on above: Location:[facility], [address] [place] [address] Dr. [place], [place], [address] The Accu-Chek Inform II glucose meter has [...] blood gas instrument) in the above situations. [facility] NM PET/CT SKULL-THIGH SUBQon 03-09-2024 NM PET/CT SKULL-THIGH SUBQ Normal [facility] PET+CT Guidance for localiza tion of [...] any questions regarding this interpretation, please call [phone]. If you are unable to reach us at the number above, please feel free to contact [facility] eRadiology at [phone]. DIVISION OF RADIOLOGY * * *Final Report* [...] mCi * Uptake Time: minutes * Radiopharmaceutical: O35-Knhfmieksvkdyhvu se (FDG) COMPARISON: PET/CT 11/25/2023 RESULT: REFERENCES: [...] radiotracer avid lesion. DIVISION OF RADIOLOGY Provider, [facility] [place] - 03/09/2024 * * *Final Report* * [...] mCi * Uptake Time: minutes * Radiopharmaceutical: C23-Cyuckafoseepfrsx se (FDG) COMPARISON: PET/CT 11/25/2023 RESULT: REFERENCES: [...] any questions regarding this interpretation, please call [phone]. If you are unable to reach us at the number above, please feel free to contact [facility] eRadiology at [phone]. [facility] Radiology Study observation (narrative) [facility] PET+CT Guidance for localiza tion of tumor of Skull base to mid-thigh-- W 18F-FDG IVOrdered By: Ccf Provider on 03-09-2024 [facility] CNPNon 03-01-2024 CNPN Normal [facility] Family Medicine Office/Clini c Noteon 03-01-2024 Family Medicine Office/Clinic Note Family Medicine Office/Clinic Note HPI Staff Cristal is a 69 year old male presenting for ER follow up ER followup: Hospital: [place] Visit date: 02/20/24 Symptoms the patient presented [...] [facility] at [facility] Dr. Guaman's phone number [...] Signed By: Enrique Austin\.br\Date and Time Signed: 03/01/24 11:20 EDT [facility] 02-10-2024 [facility] XR chest 2V*on 02-08-2024 XR chest 2V* [facility] [address] [place] [id number] XRay Report Signed Patient: Cristal Gu MR#: [id number] : 1955 Acct:[id number] Age/Sex: 68 / M ADM Date: 02/07/24 Loc: ER Room: Type: [facility] ER Attending Dr: Copies to: [...] Buzz Barroso M.D.02/08/2024 9:12 AM Dictation Location: [place] [address] Transcribed By: [facility] 02/08/24911 Dictated By: Buzz Barroso DO 02/08/24909 Signed By: 02/08/24 09 Normal [facility] Alanine aminotransferase [En zymatic activity/volume] in Serum or PlasmaOrdered By: John Dominguez on 02-07-2024 ALT [Catalytic activity/Vol] 10 U/L Normal [facility] Comment on above: Performed By: #### B BARK TANNER, CMP, CK, HS TROP, SCAN CBC ####[facility] [id number] [place] [id number] [facility] Albumin [Mass/volume] in Ser um or Plasma by Bromocresol green (BCG) dye binding methoOrdered By: John Dominguez on 02-07-2024 Albumin BCG dye [Mass/Vol] 3.6 g/dL 3.5-5.7 [facility] Alkaline phosphatase [Enzyma tic activity/volume] in Serum or PlasmaOrdered By: John Dominguez on 02-07-2024 ALP [Catalytic activity/Vol] 38 U/L Normal 34-104 [facility] Comment on above: Performed By: #### B BARK TANNER, CMP, CK, HS TROP, SCAN CBC ####[address] Aspartate aminotransferase [ Enzymatic activity/volume] in Serum or PlasmaOrdered By: John Dominguez on 02-07-2024 AST [Catalytic activity/Vol] 20 U/L Normal 13-39 [facility] Comment on above: Performed By: #### B BARK TANNER, CMP, CK, HS TROP, SCAN CBC ####[address] Automated basophil %Ordered By: John Dominguez on 02-07-2024 Basophils/100 WBC (Bld) 0.7 % Normal . [facility] Comment on above: Performed By: #### B BARK TANNER, CMP, CK, HS TROP, SCAN CBC ####[address] Automated basophil countOrde red By: John Dominguez on 02-07-2024 Basophils (Bld) [#/Vol] 0.0 10*3/uL Normal 0.0-0.2 [facility] Comment on above: Performed By: #### B BARK TANNER, CMP, CK, HS TROP, SCAN CBC ####[address] Automated blood monocyte cou ntOrdered By: John Dominguez on 02-07-2024 Monocytes (Bld) [#/Vol] 0.4 10*3/uL Normal 0.0-0.8 [facility] Comment on above: Performed By: #### B BARK TANNER, CMP, CK, HS TROP, SCAN CBC ####[address] Automated eosinophil %Ordere d By: John Dominguez on 02-07-2024 Eosinophils/100 WBC (Bld) 0.1 % Normal . [facility] Comment on above: Performed By: #### B BARK TANNER, CMP, CK, HS TROP, SCAN CBC ####[address] Automated eosinophil countOr dered By: John Dominguez on 02-07-2024 Eosinophils (Bld) [#/Vol] 0.0 10*3/uL Normal 0.0-0.45 [facility] Comment on above: Performed By: #### B BARK TANNER, CMP, CK, HS TROP, SCAN CBC ####[address] Automated monocyte %Ordered By: John Dominguez on 02-07-2024 Monocytes/100 WBC (Bld) 9.5 % Normal . [facility] Comment on above: Performed By: #### B BARK TANNER, CMP, CK, HS TROP, SCAN CBC ####[address] Automated neutrophil %Ordere d By: John Dominguez on 02-07-2024 Neutrophils/100 WBC (Bld) 75.4 % Normal . [facility] Comment on above: Performed By: #### B BARK TANNER, CMP, CK, HS TROP, SCAN CBC ####[address] BNP ser/plasOrdered By: John Dominguez on 02-07-2024 Natriuretic peptide B (Bld) [Mass/Vol] 123.0 pg/mL High 5-100 [facility] Comment on above: Result Comment: PERF ORMED BY: [facility] [address] [place] [address] PATHOLOGIST IRRIGATION SPECIALIST ALEX CROWLEY M.D. Performed By: #### B BARK TANNER, CMP, CK, HS TROP, SCAN CBC ####[address] Bilirubin.total [Mass/volume ] in Serum or PlasmaOrdered By: John Dominguez on 02-07-2024 Bilirubin [Mass/Vol] 0.7 mg/dL Normal 0.3-1.0 [facility] Comment on above: Performed By: #### B BARK TANNER, CMP, CK, HS TROP, SCAN CBC ####[address] Calcium [Mass/volume] in Ser um or PlasmaOrdered By: John Dominguez on 02-07-2024 Calcium [Mass/Vol] 9.4 mg/dL Normal 8.6-10.3 [facility] Comment on above: Performed By: #### B BARK TANNER, CMP, CK, HS TROP, SCAN CBC ####[place] [id number] [facility] Carbon dioxide, total [Moles /volume] in Serum or PlasmaOrdered By: John Dominguez on 02-07-2024 CO2 [Moles/Vol] 23.7 mmol/L Normal 21.0-31.0 [facility] Comment on above: Performed By: #### B BARK TANNER, CMP, CK, HS TROP, SCAN CBC ####[place] [id number] [facility] Chloride [Moles/volume] in S juanpablo or PlasmaOrdered By: John Dominguez on 02-07-2024 Chloride [Moles/Vol] 100 mmol/L Normal 98-107 [facility] Comment on above: Performed By: #### B BARK TANNER, CMP, CK, HS TROP, SCAN CBC ####[place] [id number] [facility] Comprehensive Metabolic Pane tim 02-07-2024 Albumin [Mass/Vol] 3.6 g/dL Normal 3.5-5.7 [facility] Comment on above: Performed By: #### B BARK TANNER, CMP, CK, HS TROP, SCAN CBC ####[place] [id number] [facility] Creatinine Clr Calc Pharmacy 47.99 Normal [facility] Comment on above: Result Comment: PERF ORMED BY: [facility] [address] [place] [address] PATHOLOGIST IRRIGATION SPECIALIST ALEX CROWLEY M.D. Performed By: #### B BARK TANNER, CMP, CK, HS TROP, SCAN CBC ####[place] [id number] [facility] GFR/1.73 sq M.predicted MDRD (S/P/Bld) [Vol rate/Area] mL/min/{1.73_m2} Normal [facility] Comment on above: Performed By: #### B BARK TANNER, CMP, CK, HS TROP, SCAN CBC ####[place] [address] [place] [address] [facility] Creatine kinase [Enzymatic a ctivity/volume] in Serum or PlasmaOrdered By: John Dominguez on 02-07-2024 CK [Catalytic activity/Vol] 54 U/L Normal 30-223 [facility] Comment on above: Performed By: #### B BARK TANNER, CMP, CK, HS TROP, SCAN CBC ####[place] [address] [place] [address] [facility] Creatinine [Mass/volume] in Serum or PlasmaOrdered By: John Dominguez on 02-07-2024 Creatinine [Mass/Vol] 1.12 mg/dL Normal 0.70-1.30 [facility] Comment on above: Performed By: #### B BARK TANNER, CMP, CK, HS TROP, SCAN CBC ####[place] [address] [place] [address] [facility] ECG 12 lead ECGon 02-07-2024 ECG 12 lead ECG [facility] [address] [place] [address] Electrocardiograph Report Signed Patient: Cristal Gu MR#: [id number] : 1955 Acct:[id number] Age/Sex: 68 / M ADM Date: 02/07/24 Loc: ER Room: Type: [facility] ER Attending Dr: Ordering Provider: [...] John Dominguez MD 02/08/24 0020 Normal [facility] Erythrocyte distribution wid th [Ratio] by Automated countOrdered By: John Dominguez on 02-07-2024 Erythrocyte distribution width (RBC) [Ratio] 14.9 % High 12.0-14.8 [facility] Comment on above: Performed By: #### B BARK TANNER, CMP, CK, HS TROP, SCAN CBC ####[place] [address] [address] Erythrocytes [#/volume] in B lood by Automated countOrdered By: John Dominguez on 02-07-2024 RBC (Bld) [#/Vol] 3.76 10*6/uL Low 3.90-5.60 [facility] Comment on above: Performed By: #### B BARK TANNER, CMP, CK, HS TROP, SCAN CBC ####[place] [address] [address] Glucose [Mass/volume] in Ser um or PlasmaOrdered By: John Dominguez on 02-07-2024 Glucose [Mass/Vol] 168 mg/dL High 70-100 [facility] Comment on above: ADA recommended refe rence rangeRandom Glucose Reference Range is dependent on time and content of last meal. Glucose of more than 200 mg/dL in a nonstressed, ambulatory subject supports the diagnosis of Diabetes Mellitus. Result Comment: [place] Glucose Reference Range is dependent on time and content of last meal. Glucose of more than 200 mg/dL in a nonstressed, ambulatory subject supports the diagnosis of Diabetes Mellitus. ADA recommended reference range Performed By: #### B BARK TANNER, CMP, CK, HS TROP, SCAN CBC ####[facility] [place] [id number] [facility] Hematocrit [Volume Fraction] of Blood by Automated countOrdered By: John Dominguez on 02-07-2024 Hematocrit (Bld) [Volume fraction] 35.7 % Low 38.8-50.0 [facility] Comment on above: Performed By: #### B BARK TANNER, CMP, CK, HS TROP, SCAN CBC ####[place] [address] [address] Hemoglobin [Mass/volume] in BloodOrdered By: John Dominguez on 02-07-2024 Hemoglobin (Bld) [Mass/Vol] 12.1 g/dL Low 13.0-17.0 [facility] Comment on above: Performed By: #### B BARK TANNER, CMP, CK, HS TROP, SCAN CBC ####[address] Leukocytes [#/volume] correc nani for nucleated erythrocytes in Blood by Automated counOrdered By: John Dominguez on 02-07-2024 WBC corrected for nucl RBC Auto (Bld) [#/Vol] 4.0 10*3/uL Low 4.1-10.5 [facility] Leukocytes [#/volume] in Blo od by Automated countOrdered By: John Dominguez on 02-07-2024 WBC (Bld) [#/Vol] 4.0 10*3/uL Low 4.1-10.5 [facility] Comment on above: Performed By: #### B BARK TANNER, CMP, CK, HS TROP, SCAN CBC ####[address] Lymphocytes [#/volume] in Bl ood by Automated countOrdered By: John Dominguez on 02-07-2024 Lymphocytes (Bld) [#/Vol] 0.6 10*3/uL Low 1.00-4.8 [facility] Comment on above: Performed By: #### B BARK TANNER, CMP, CK, HS TROP, SCAN CBC ####[address] Lymphocytes/100 leukocytes i n Blood by Automated countOrdered By: John Dominguez on 02-07-2024 Lymphocytes/100 WBC (Bld) 14.3 % Normal . [facility] Comment on above: Performed By: #### B BARK TANNER, CMP, CK, HS TROP, SCAN CBC ####[address] MCH [Entitic mass] by Automa nani countOrdered By: John Dominguez on 02-07-2024 MCH (RBC) [Entitic mass] 32.1 pg Normal 27.5-35.2 [facility] Comment on above: Performed By: #### B BARK TANNER, CMP, CK, HS TROP, SCAN CBC ####[address] MCHC Auto (RBC) [Mass/Vol]Or dered By: John Dominguez on 02-07-2024 MCHC (RBC) [Mass/Vol] 33.8 g/dL 32.5-35.6 [facility] MCV [Entitic volume] by Auto mated countOrdered By: John Dominguez on 02-07-2024 MCV (RBC) [Entitic vol] 94.9 fL Normal 83.5-101 [facility] Comment on above: Performed By: #### B BARK TANNER, CMP, CK, HS TROP, SCAN CBC ####[address] Monocyte distribution width [Entitic volume] in Blood by AutomatedOrdered By: John Dominguez on 02-07-2024 Monocyte distribution width Auto (Bld) [Entitic vol] 19.12 % 0.00-20.00 [facility] Neutrophils [#/volume] in Bl ood by Automated countOrdered By: John Dominguez on 02-07-2024 Neutrophils (Bld) [#/Vol] 3.0 10*3/uL Normal 1.8-7.7 [facility] Comment on above: Performed By: #### B BARK TANNER, CMP, CK, HS TROP, SCAN CBC ####[address] No Panel InformationOrdered By: John Dominguez on 02-07-2024 Estimated GFR (CKD-EPI) > 60.0 mL/Min [facility] Creatinine Clearance (Chem 47.99 [facility] Nucleated erythrocytes [Pres ence] in Blood by Automated countOrdered By: John Dominguez on 02-07-2024 Nucleated RBC Auto Ql (Bld) 0.1 /100{WBC} 0-0.5 [facility] Platelet adequacy [Presence] in Blood by Light microscopyOrdered By: John Dominguez on 02-07-2024 Platelets LM Ql (Bld) Normal Normal [facility] Platelet mean volume [Entiti c volume] in Blood by Automated countOrdered By: John Dominguez on 02-07-2024 Platelet mean volume (Bld) [Entitic vol] 10.5 fL High 6.6-10.1 [facility] Comment on above: Performed By: #### B BARK TANNER, CMP, CK, HS TROP, SCAN CBC ####[place] [address] [place] [address] [facility] Platelet morphology finding [Identifier] in BloodOrdered By: John Dominguez on 02-07-2024 Platelet morphology finding Nom (Bld) Normal Normal [facility] Platelets Large [Presence] i n Blood by Light microscopyOrdered By: John Dominguez on 02-07-2024 Platelets Large LM Ql (Bld) Slight [facility] Platelets [#/volume] in Bloo d by Automated countOrdered By: John Dominguez on 02-07-2024 Platelets (Bld) [#/Vol] 187 10*3/uL Normal 150-450 [facility] Comment on above: Performed By: #### B BARK TANNER, CMP, CK, HS TROP, SCAN CBC ####[place] [id number] [facility] Polychromasia [Presence] in Blood by Light microscopyOrdered By: John Dominguez on 02-07-2024 Polychromasia LM Ql (Bld) Slight [facility] Potassium [Moles/volume] in Serum or PlasmaOrdered By: John Dominguez on 02-07-2024 Potassium [Moles/Vol] 3.8 mmol/L Normal 3.5-5.1 [facility] Comment on above: Performed By: #### B BARK TANNER, CMP, CK, HS TROP, SCAN CBC ####[place] [id number] [facility] Protein [Mass/volume] in Ser um or PlasmaOrdered By: John Dominguez on 02-07-2024 Protein [Mass/Vol] 6.9 g/dL Normal 6.4-8.9 [facility] Comment on above: Performed By: #### B BARK TANNER, CMP, CK, HS TROP, SCAN CBC ####[place] [id number] [facility] RBC morphologyOrdered By: Karmen Dominguez on 02-07-2024 RBC morphology finding Nom (Bld) Normal Normal Normal [facility] Comment on above: Performed By: #### B BARK TANNER, CMP, CK, HS TROP, SCAN CBC ####[address] Scan and CBCon 02-07-2024 Large Platelets Slight Normal [facility] Comment on above: Result Comment: PERF ORMED BY: [facility] [address] [place] [address] PATHOLOGIST IRRIGATION SPECIALIST ALEX CROWLEY M.D. Performed By: #### B BARK TANNER, CMP, CK, HS TROP, SCAN CBC ####[address] Mean Corpuscular HGB Conc 33.8 g/dL Normal 32.5-35.6 [facility] Comment on above: Performed By: #### B BARK TANNER, CMP, CK, HS TROP, SCAN CBC ####[address] Monocytes/100 WBC (Bld) 19.12 % Normal 0.00-20.00 [facility] Comment on above: Performed By: #### B BARK TANNER, CMP, CK, HS TROP, SCAN CBC ####[address] NRBC% 0.1 /100{WBC} Normal 0-0.5 [facility] Comment on above: Performed By: #### B BARK TANNER, CMP, CK, HS TROP, SCAN CBC ####[address] Platelet Estimate Normal Normal Normal [facility] Comment on above: Performed By: #### B BARK TANNER, CMP, CK, HS TROP, SCAN CBC ####[address] Platelet Morphology Normal Normal Normal [facility] Comment on above: Performed By: #### B BARK TANNER, CMP, CK, HS TROP, SCAN CBC ####[address] Polychromasia Slight Normal [facility] Comment on above: Performed By: #### B BARK TANNER, CMP, CK, HS TROP, SCAN CBC ####[address] Serum globulin measurement b y calculation (mass/volume)Ordered By: John Dominguez on 02-07-2024 Globulin (S) [Mass/Vol] 3.3 g/dL Normal [facility] Comment on above: Performed By: #### B BARK TANNER, CMP, CK, HS TROP, SCAN CBC ####[address] Serum or plasma albumin/glob ulin mass ratioOrdered By: John Dominguez on 02-07-2024 Albumin/Globulin [Mass ratio] 1.1 {ratio} Normal [facility] Comment on above: Performed By: #### B BARK TANNER, CMP, CK, HS TROP, SCAN CBC ####[address] Serum or plasma anion gap de terminationOrdered By: John Dominguez on 02-07-2024 Anion gap [Moles/Vol] 13.1 mmol/L Normal 6.0-15.0 [facility] Comment on above: Performed By: #### B BARK TANNER, CMP, CK, HS TROP, SCAN CBC ####[address] Sodium [Moles/volume] in Ser um or PlasmaOrdered By: John Dominguez on 02-07-2024 Sodium [Moles/Vol] 133 mmol/L Low 136-145 [facility] Comment on above: Performed By: #### B BARK TANNER, CMP, CK, HS TROP, SCAN CBC ####[place] [id number] [facility] Troponin I High Sensitivityo n 02-07-2024 Troponin I High Sensitivity 10.1 pg/mL Normal 0.0-20.0 [facility] Comment on above: Result Comment: PERF ORMED BY: [facility] [address] [place] [address] PATHOLOGIST IRRIGATION SPECIALIST ALEX CROWLEY M.D. Performed By: #### B BARK TANNER, CMP, CK, HS TROP, SCAN CBC ####[facility] [address] Troponin I.cardiac [Mass/vol ume] in Serum or Plasma by Detection limit <= 0.01 ng/Ordered By: John Dominguez on 02-07-2024 Troponin I.cardiac DL <= 0.01 ng/mL [Mass/Vol] 10.1 pg/mL 0.0-20.0 [facility] Urea nitrogen [Mass/volume] in Serum or PlasmaOrdered By: John Dominguez on 02-07-2024 Urea nitrogen [Mass/Vol] 17 mg/dL Normal 7-25 [facility] Comment on above: Performed By: #### B BARK TANNER, CMP, CK, HS TROP, SCAN CBC ####[facility] Family Medicine Office/Clini c Noteon 02-06-2024 Family [...] day(s), # 14 tab(s), Refills(s) 0, Pharmacy: [facility] #[facility], 169.5, cm, 02/06/24 12:01:00 EDT, Height/Length Dosing, 52.9, kg, 02/06/24 12:01:00 EDT, Weight Dosing methylPREDNISolone, = 1 packet(s), Oral, As Directed, as directed on package labeling, X 6 day(s), # 21 tab(s), Refills(s) 0, Pharmacy: [facility], 169.5, cm, 02/06/24 12:01:00 EDT, Height/Length Dosing, 52.9, kg, 02/06/24 12:01:00 EDT, Weight Dosing 2. Former smoker (Z87.891: Personal history of nicotine dependence) continue not smoking Ordered: amoxicillin, 875 mg = 1 tab(s), Oral, BID, X 7 day(s), # 14 tab(s), Refills(s) 0, Pharmacy: [facility], 169.5, cm, 02/06/24 12:01:00 EDT, Height/Length Dosing, 52.9, kg, 02/06/24 12:01:00 EDT, Weight Dosing methylPREDNISolone, = 1 packet(s), Oral, As Directed, as directed on package labeling, X 6 day(s), # 21 tab(s), Refills(s) 0, Pharmacy: [facility], 169.5, cm, 02/06/24 12:01:00 EDT, Height/Length Dosing, 52.9, kg, 02/06/24 12:01:00 EDT, Weight Dosing 3. BMI less than 19,adult (Z68.1: Body mass index [BMI] 19.9 or less, adult) BMI education given Ordered: amoxicillin, 875 mg = 1 tab(s), Oral, BID, X 7 day(s), # 14 tab(s), Refills(s) 0, Pharmacy: [facility], 169.5, cm, 02/06/24 12:01:00 EDT, Height/Length Dosing, 52.9, kg, 02/06/24 12:01:00 EDT, Weight Dosing methylPREDNISolone, = 1 packet(s), Oral, As Directed, as directed on package labeling, X 6 day(s), # 21 tab(s), Refills(s) 0, Pharmacy: [facility], 169.5, cm, 02/06/24 12:01:00 EDT, Height/Length Dosing, 52.9, kg, 02/06/24 12:01:00 EDT, Weight Dosing Orders: triamcinolone topical, 1 duong, Topical, BID, 20 gram, Refill(s) 1, [facility], 169.5, cm, 10/15/23 11:53:00 EDT, Height/Length [...] (Bld) [#/Vol] 10*3/uL Normal <0.11 [facility] Comment on above: Order Comment: Speci men Type: BLOOD SPECIMENOrdering Facility: [facility] Address: [address] [place] [address] Performed By: #### 5 7021-8 ####[facility] LABCLIA [id number] [place] [address] Basophils/100 WBC (Bld) 0.3 % Normal [facility] Comment on above: Order Comment: Speci men Type: BLOOD SPECIMENOrdering Facility: [facility] Address: [address] [place] [address] Performed By: #### 5 7021-8 ####[facility] LABCLIA [id number] [place] [address] Differential cell count method Nom (Bld) Auto Normal [facility] Comment on above: Order Comment: Speci men Type: BLOOD SPECIMENOrdering Facility: [facility] Address: [address] [place] [address] Performed By: #### 5 7021-8 ####[facility] LABCLIA [id number] [place] [address] Eosinophils (Bld) [#/Vol] 0.10 10*3/uL Normal <0.46 [facility] Comment on above: Order Comment: Speci men Type: BLOOD SPECIMENOrdering Facility: [facility] Address: [address] [place] [address] Performed By: #### 5 7021-8 ####[facility] LABCLIA [id number] [place] [address] Eosinophils/100 WBC (Bld) 1.7 % Normal [facility] Comment on above: Order Comment: Speci men Type: BLOOD SPECIMENOrdering Facility: [facility] Address: [address] [place] [address] Performed By: #### 5 7021-8 ####[facility] LABCLIA [id number] [place] [address] Erythrocyte distribution width (RBC) [Ratio] 13.7 % Normal 11.5-15.0 [facility] Comment on above: Order Comment: Speci men Type: BLOOD SPECIMENOrdering Facility: [facility] Address: [address] [place] [address] Performed By: #### 5 7021-8 ####[facility] LABCLIA [id number] [place] [address] Hematocrit (Bld) [Volume fraction] 38.1 % Low 39.0-51.0 [facility] Comment on above: Order Comment: Speci men Type: BLOOD SPECIMENOrdering Facility: [facility] Address: [address] [place] [address] Performed By: #### 5 7021-8 ####[facility] LABCLIA [id number] [place] [address] Hemoglobin (Bld) [Mass/Vol] 12.7 g/dL Low 13.0-17.0 [facility] Comment on above: Order Comment: Speci men Type: BLOOD SPECIMENOrdering Facility: [facility] Address: [address] [place] [address] Performed By: #### 5 7021-8 ####[facility] LABCLIA [id number] [place] [address] Immature granulocytes (Bld) [#/Vol] 0.04 10*3/uL Normal <0.10 [facility] Comment on above: Order Comment: Speci men Type: BLOOD SPECIMENOrdering Facility: [facility] Address: [address] [place] [address] Performed By: #### 5 7021-8 ####[facility] LABCLIA [id number] [place] [address] Immature granulocytes/100 WBC (Bld) 0.7 % Normal [facility] Comment on above: Order Comment: Speci men Type: BLOOD SPECIMENOrdering Facility: [facility] Address: [address] [place] [address] Performed By: #### 5 7021-8 ####[facility] LABCLIA [id number] [place] [address] Lymphocytes (Bld) [#/Vol] 1.05 10*3/uL Normal 1.00-4.00 [facility] Comment on above: Order Comment: Speci men Type: BLOOD SPECIMENOrdering Facility: [facility] Address: [address] [place] [address] Performed By: #### 5 7021-8 ####[facility] LABCLIA [id number] [place] [address] Lymphocytes/100 WBC (Bld) 17.6 % Normal [facility] Comment on above: Order Comment: Speci men Type: BLOOD SPECIMENOrdering Facility: [facility] Address: [address] [place] [address] Performed By: #### 5 7021-8 ####[facility] LABCLIA [id number] [place] [address] MCH (RBC) [Entitic mass] 31.7 pg Normal 26.0-34.0 [facility] Comment on above: Order Comment: Speci men Type: BLOOD SPECIMENOrdering Facility: [facility] Address: [address] [place] [address] Performed By: #### 5 7021-8 ####[facility] LABCLIA [id number] [place] [address] MCHC (RBC) [Mass/Vol] 33.3 g/dL Normal 30.5-36.0 [facility] Comment on above: Order Comment: Speci men Type: BLOOD SPECIMENOrdering Facility: [facility] Address: [address] [place] [address] Performed By: #### 5 7021-8 ####[facility] LABCLIA [id number] [place] [address] MCV (RBC) [Entitic vol] 95.0 fL Normal 80.0-100.0 [facility] Comment on above: Order Comment: Speci men Type: BLOOD SPECIMENOrdering Facility: [facility] Address: [address] [place] [address] Performed By: #### 5 7021-8 ####[facility] LABCLIA [id number] [place] [address] Monocytes (Bld) [#/Vol] 1.00 10*3/uL High <0.87 [facility] Comment on above: Order Comment: Speci men Type: BLOOD SPECIMENOrdering Facility: [facility] Address: [address] [place] [address] Performed By: #### 5 7021-8 ####[facility] LABCLIA [id number] [place] [address] Monocytes/100 WBC (Bld) 16.8 % Normal [facility] Comment on above: Order Comment: Speci men Type: BLOOD SPECIMENOrdering Facility: [facility] Address: [address] [place] [address] Performed By: #### 5 7021-8 ####[facility] LABCLIA [id number] [place] [address] Neutrophils (Bld) [#/Vol] 3.75 10*3/uL Normal 1.45-7.50 [facility] Comment on above: Order Comment: Speci men Type: BLOOD SPECIMENOrdering Facility: [facility] Address: [address] [place] [address] Performed By: #### 5 7021-8 ####[facility] LABCLIA [id number] [place] [address] Neutrophils/100 WBC (Bld) 62.9 % Normal [facility] Comment on above: Order Comment: Speci men Type: BLOOD SPECIMENOrdering Facility: [facility] Address: [address] [place] [address] Performed By: #### 5 7021-8 ####[facility] LABCLIA [id number] [place] [address] Nucleated RBC (Bld) [#/Vol] 10*3/uL Normal <0.01 [facility] Comment on above: Order Comment: Speci men Type: BLOOD SPECIMENOrdering Facility: [facility] Address: [address] [place] [address] Performed By: #### 5 7021-8 ####[facility] LABCLIA [id number] [place] [address] Nucleated RBC/100 WBC (Bld) [Ratio] 0.0 /100 WBC Normal [facility] Comment on above: Order Comment: Speci men Type: BLOOD SPECIMENOrdering Facility: [facility] Address: [address] [place] [address] Performed By: #### 5 7021-8 ####[facility] LABCLIA [id number] [place] [address] Platelet mean volume (Bld) [Entitic vol] 11.5 fL Normal 9.0-12.7 [facility] Comment on above: Order Comment: Speci men Type: BLOOD SPECIMENOrdering Facility: [facility] Address: [address] [place] [address] Performed By: #### 5 7021-8 ####[facility] LABCLIA [id number] [place] [address] Platelets (Bld) [#/Vol] 201 10*3/uL Normal 150-400 [facility] Comment on above: Order Comment: Speci men Type: BLOOD SPECIMENOrdering Facility: [facility] Address: [address] [place] [address] Performed By: #### 5 7021-8 ####[facility] LABCLIA [id number] [place] [address] RBC (Bld) [#/Vol] 4.01 10*6/uL Low 4.20-6.00 [facility] Comment on above: Order Comment: Speci men Type: BLOOD SPECIMENOrdering Facility: [facility] Address: [address] [place] [address] Performed By: #### 5 7021-8 ####[facility] LABIA [id number] [place] [address] WBC (Bld) [#/Vol] 5.96 10*3/uL Normal 3.70-11.00 [facility] Comment on above: Order Comment: Speci men Type: BLOOD SPECIMENOrdering Facility: [facility] Address: [address] [place] [address] Performed By: #### 5 7021-8 ####[facility] LABIA [id number] [place] [address] CNOVSPon 02-03-2024 CNOVSP Normal [facility] CNPNon 02-03-2024 CNPN Normal [facility] Comprehensive metabolic 2000 panelon 02-03-2024 Albumin [Mass/Vol] 3.8 g/dL Low 3.9-4.9 [facility] Comment on above: Order Comment: Speci men Type: BLOOD SPECIMENOrdering Facility: [facility] Address: [address] [place] [address] Performed By: #### 2 4323-8 ####[facility] LABCLIA [id number] [place] [address] ALP [Catalytic activity/Vol] 47 U/L Normal 38-113 [facility] Comment on above: Order Comment: Speci men Type: BLOOD SPECIMENOrdering Facility: [facility] Address: [address] [place] [address] Performed By: #### 2 4323-8 ####[facility] LABCLIA [id number] [place] [address] ALT [Catalytic activity/Vol] 12 U/L Normal 10-54 [facility] Comment on above: Order Comment: Speci men Type: BLOOD SPECIMENOrdering Facility: [facility] Address: [address] [place] [address] Performed By: #### 2 4323-8 ####[facility] LABCLIA [id number] [place] [address] Anion gap [Moles/Vol] 13 mmol/L Normal 8-15 [facility] Comment on above: Order Comment: Speci men Type: BLOOD SPECIMENOrdering Facility: [facility] Address: [address] [place] [address] Performed By: #### 2 4323-8 ####[facility] LABCLIA [id number] [place] [address] AST [Catalytic activity/Vol] 22 U/L Normal 14-40 [facility] Comment on above: Order Comment: Speci men Type: BLOOD SPECIMENOrdering Facility: [facility] Address: [address] [place] [address] Performed By: #### 2 4323-8 ####[facility] LABCLIA [id number] [place] [address] Bilirubin [Mass/Vol] 0.8 mg/dL Normal 0.2-1.3 [facility] Comment on above: Order Comment: Speci men Type: BLOOD SPECIMENOrdering Facility: [facility] Address: [address] [place] [address] Performed By: #### 2 4323-8 ####[facility] LABCLIA [id number] [place] [address] Calcium [Mass/Vol] 10.5 mg/dL High 8.5-10.2 [facility] Comment on above: Order Comment: Speci men Type: BLOOD SPECIMENOrdering Facility: [facility] Address: [address] [place] [address] Performed By: #### 2 4323-8 ####[facility] LABCLIA [id number] [place] [address] Chloride [Moles/Vol] 101 mmol/L Normal 98-107 [facility] Comment on above: Order Comment: Speci men Type: BLOOD SPECIMENOrdering Facility: [facility] Address: [address] [place] [address] Performed By: #### 2 4323-8 ####[facility] LABCLIA [id number] [place] [address] CO2 [Moles/Vol] 24 mmol/L Normal 22-30 [facility] Comment on above: Order Comment: Speci men Type: BLOOD SPECIMENOrdering Facility: [facility] Address: [address] [place] [address] Performed By: #### 2 4323-8 ####[facility] LABCLIA [id number] [place] [address] Creatinine [Mass/Vol] 1.35 mg/dL High 0.73-1.22 [facility] Comment on above: Order Comment: Speci men Type: BLOOD SPECIMENOrdering Facility: [facility] Address: [address] [place] [address] Performed By: #### 2 4323-8 ####[facility] LABCLIA [id number] [place] [address] Creatinine and Glomerular filtration rate.predicted panel (S/P/Bld) 58 mL/min/1.73m??? Low >=60 [facility] Comment on above: Order Comment: Speci men Type: BLOOD SPECIMENOrdering Facility: [facility] Address: [address] [place] [address] Result Comment: Landy mated Glomerular Filtration Rate [...] actual GFR. Performed By: #### 2 4323-8 ####[facility] LABCLIA [id number] [place] [address] Glucose [Mass/Vol] 98 mg/dL Normal 74-99 [facility] Comment on above: Order Comment: Ajay rausch Type: BLOOD SPECIMENOrdering Facility: [facility] Address: [address] [place] [address] Result Comment: The [place] [employer] (ADA) provides guidance for cutoff [...] Standards of Medical Care in Diabetes 2016, [employer]. Diabetes Care. 2016.39(Suppl 1). Performed By: #### 2 4323-8 ####[facility] LABCLIA [id number] [place] [address] Potassium [Moles/Vol] 4.7 mmol/L Normal 3.7-5.1 [facility] Comment on above: Order Comment: Speci men Type: BLOOD SPECIMENOrdering Facility: [facility] Address: [address] [place] [address] Performed By: #### 2 4323-8 ####[facility] LABCLIA [id number] [place] [address] Protein [Mass/Vol] 7.2 g/dL Normal 6.3-8.0 [facility] Comment on above: Order Comment: Speci men Type: BLOOD SPECIMENOrdering Facility: [facility] Address: [address] [place] [address] Performed By: #### 2 4323-8 ####[facility] LABCLIA [id number] [place] [address] Sodium [Moles/Vol] 138 mmol/L Normal 136-144 [facility] Comment on above: Order Comment: Speci men Type: BLOOD SPECIMENOrdering Facility: [facility] Address: [address] [place] [address] Performed By: #### 2 4323-8 ####[facility] LABCLIA [id number] [place] [address] Urea nitrogen [Mass/Vol] 15 mg/dL Normal 9-24 [facility] Comment on above: Order Comment: Speci men Type: BLOOD SPECIMENOrdering Facility: [facility] Address: [address] [place], [place] [address] Performed By: #### 2 4323-8 ####[facility] LABIA [id number] [place] [address] CNPNon 01-27-2024 CNPN Normal [facility] CNPNon 01-13-2024 CNPN Normal [facility] Family Medicine Office/Clini c Noteon 01-12-2024 [...] anxiety, # 90 tab(s), Refills(s) 0, Pharmacy: [facility], 169.5, cm, 01/12/24 12:03:00 EDT, Height/Length Dosing, 54.7, kg, 01/12/24 12:03:00 EDT, Weight Dosing alprazolam, 0.25 mg = 1 tab(s), Oral, TID, PRN for anxiety, # 90 tab(s), Refills(s) 0, Pharmacy: [facility] #[facility], 169.5, cm, 10/08/23 9:02:00 EDT, Height/Length [...] (COVID-19) mRNA-1273 vaccine 11/15/2020 Recorded Normal [facility] Comment on above: Result Comment: Elec tronically Signed By: Enrique Austin\Date and Time Signed: 01/12/24 12:31 EDT CNPNon 01-09-2024 CNPN Normal [facility] CNPNon 12-26-2023 CNPN Normal [facility] CBC W Auto Differential pane l (Bld)on 12-23-2023 Basophils (Bld) [#/Vol] [facility] Basophils/100 WBC (Bld) 0.1 % [facility] Differential cell count method Nom (Bld) Auto [facility] Eosinophils (Bld) [#/Vol] [facility] Eosinophils/100 WBC (Bld) 0.1 % [facility] Erythrocyte distribution width (RBC) [Ratio] 15.3 % High 11.5 - 15.0 % [facility] Hematocrit (Bld) [Volume fraction] 31.1 % Low 39.0 - 51.0 % [facility] Hemoglobin (Bld) [Mass/Vol] 10.0 g/dL Low 13.0 - 17.0 g/dL [facility] Immature granulocytes (Bld) [#/Vol] 0.07 10*3/uL [facility] Immature granulocytes/100 WBC (Bld) 0.9 % [facility] Interpretation and review of laboratory results Abnormal [facility] Lymphocytes (Bld) [#/Vol] 0.38 10*3/uL Low [facility] Lymphocytes/100 WBC (Bld) 4.6 % [facility] MCH (RBC) [Entitic mass] 31.0 pg 26.0 - 34.0 pg [facility] MCHC (RBC) [Mass/Vol] 32.2 g/dL 30.5 - 36.0 g/dL [facility] MCV (RBC) [Entitic vol] 96.3 fL 80.0 - 100.0 fL [facility] Monocytes (Bld) [#/Vol] 0.34 10*3/uL [facility] Monocytes/100 WBC (Bld) 4.1 % [facility] Neutrophils (Bld) [#/Vol] 7.39 10*3/uL [facility] Neutrophils/100 WBC (Bld) 90.2 % [facility] Nucleated RBC (Bld) [#/Vol] [facility] Nucleated RBC/100 WBC (Bld) [Ratio] 0.0 % /100 WBC [facility] Platelet mean volume (Bld) [Entitic vol] 10.9 fL 9.0 - 12.7 fL [facility] Platelets (Bld) [#/Vol] 141 10*3/uL Low [facility] RBC (Bld) [#/Vol] 3.23 10*6/uL Low 4.20 - 6.00 m/uL [facility] WBC (Bld) [#/Vol] 8.20 10*3/uL [facility] Basophils (Bld) [#/Vol] 10*3/uL Normal <0.11 [facility] Comment on above: Order Comment: Speci men Type: BLOOD SPECIMENOrdering Facility: [facility] Address: [address] [place] [address] Performed By: #### 5 7021-8 ####[facility] LABCLIA [id number] [place] [address] Basophils/100 WBC (Bld) 0.1 % Normal [facility] Comment on above: Order Comment: Speci men Type: BLOOD SPECIMENOrdering Facility: [facility] Address: [address] [place] [address] Performed By: #### 5 7021-8 ####[facility] LABCLIA [id number] [place] [address] Differential cell count method Nom (Bld) Auto Normal [facility] Comment on above: Order Comment: Speci men Type: BLOOD SPECIMENOrdering Facility: [facility] Address: [address] [place] [address] Performed By: #### 5 7021-8 ####[facility] LABCLIA [id number] [place] [address] Eosinophils (Bld) [#/Vol] 10*3/uL Normal <0.46 [facility] Comment on above: Order Comment: Speci men Type: BLOOD SPECIMENOrdering Facility: [facility] Address: [address] [place] [address] Performed By: #### 5 7021-8 ####[facility] LABCLIA [id number] [place] [address] Eosinophils/100 WBC (Bld) 0.1 % Normal [facility] Comment on above: Order Comment: Speci men Type: BLOOD SPECIMENOrdering Facility: [facility] Address: [address] [place] [address] Performed By: #### 5 7021-8 ####[facility] LABCLIA [id number] [place] [address] Erythrocyte distribution width (RBC) [Ratio] 15.3 % High 11.5-15.0 [facility] Comment on above: Order Comment: Speci men Type: BLOOD SPECIMENOrdering Facility: [facility] Address: [address] [place] [address] Performed By: #### 5 7021-8 ####[facility] LABCLIA [id number] [place] [address] Hematocrit (Bld) [Volume fraction] 31.1 % Low 39.0-51.0 [facility] Comment on above: Order Comment: Speci men Type: BLOOD SPECIMENOrdering Facility: [facility] Address: [address] [place] [address] Performed By: #### 5 7021-8 ####[facility] LABCLIA [id number] [place] [address] Hemoglobin (Bld) [Mass/Vol] 10.0 g/dL Low 13.0-17.0 [facility] Comment on above: Order Comment: Speci men Type: BLOOD SPECIMENOrdering Facility: [facility] Address: [address] [place] [address] Performed By: #### 5 7021-8 ####[facility] LABCLIA [id number] [place] [address] Immature granulocytes (Bld) [#/Vol] 0.07 10*3/uL Normal <0.10 [facility] Comment on above: Order Comment: Speci men Type: BLOOD SPECIMENOrdering Facility: [facility] Address: [address] [place] [address] Performed By: #### 5 7021-8 ####[facility] LABCLIA [id number] [place] [address] Immature granulocytes/100 WBC (Bld) 0.9 % Normal [facility] Comment on above: Order Comment: Speci men Type: BLOOD SPECIMENOrdering Facility: [facility] Address: [address] [place] [address] Performed By: #### 5 7021-8 ####[facility] LABCLIA [id number] [place] [address] Lymphocytes (Bld) [#/Vol] 0.38 10*3/uL Low 1.00-4.00 [facility] Comment on above: Order Comment: Speci men Type: BLOOD SPECIMENOrdering Facility: [facility] Address: [address] [place] [address] Performed By: #### 5 7021-8 ####[facility] LABCLIA [id number] [place] [address] Lymphocytes/100 WBC (Bld) 4.6 % Normal [facility] Comment on above: Order Comment: Speci men Type: BLOOD SPECIMENOrdering Facility: [facility] Address: [address] [place] [address] Performed By: #### 5 7021-8 ####[facility] LABCLIA [id number] [place] [address] MCH (RBC) [Entitic mass] 31.0 pg Normal 26.0-34.0 [facility] Comment on above: Order Comment: Speci men Type: BLOOD SPECIMENOrdering Facility: [facility] Address: [address] [place] [address] Performed By: #### 5 7021-8 ####[facility] LABCLIA [id number] [place] [address] MCHC (RBC) [Mass/Vol] 32.2 g/dL Normal 30.5-36.0 [facility] Comment on above: Order Comment: Speci men Type: BLOOD SPECIMENOrdering Facility: [facility] Address: [address] [place] [address] Performed By: #### 5 7021-8 ####[facility] LABCLIA [id number] [place] [address] MCV (RBC) [Entitic vol] 96.3 fL Normal 80.0-100.0 [facility] Comment on above: Order Comment: Speci men Type: BLOOD SPECIMENOrdering Facility: [facility] Address: [address] [place] [address] Performed By: #### 5 7021-8 ####[facility] LABCLIA [id number] [place] [address] Monocytes (Bld) [#/Vol] 0.34 10*3/uL Normal <0.87 [facility] Comment on above: Order Comment: Speci men Type: BLOOD SPECIMENOrdering Facility: [facility] Address: [address] [place] [address] Performed By: #### 5 7021-8 ####[facility] LABCLIA [id number] [place] [address] Monocytes/100 WBC (Bld) 4.1 % Normal [facility] Comment on above: Order Comment: Speci men Type: BLOOD SPECIMENOrdering Facility: [facility] Address: [address] [place] [address] Performed By: #### 5 7021-8 ####[facility] LABCLIA [id number] [place] [address] Neutrophils (Bld) [#/Vol] 7.39 10*3/uL Normal 1.45-7.50 [facility] Comment on above: Order Comment: Speci men Type: BLOOD SPECIMENOrdering Facility: [facility] Address: [address] [place] [address] Performed By: #### 5 7021-8 ####[facility] LABCLIA [id number] [place] [address] Neutrophils/100 WBC (Bld) 90.2 % Normal [facility] Comment on above: Order Comment: Speci men Type: BLOOD SPECIMENOrdering Facility: [facility] Address: [address] [place] [address] Performed By: #### 5 7021-8 ####[facility] LABCLIA [id number] [place] [address] Nucleated RBC (Bld) [#/Vol] 10*3/uL Normal <0.01 [facility] Comment on above: Order Comment: Speci men Type: BLOOD SPECIMENOrdering Facility: [facility] Address: [address] [place] [address] Performed By: #### 5 7021-8 ####[facility] LABCLIA [id number] [place] [address] Nucleated RBC/100 WBC (Bld) [Ratio] 0.0 /100 WBC Normal [facility] Comment on above: Order Comment: Speci men Type: BLOOD SPECIMENOrdering Facility: [facility] Address: [address] [place] [address] Performed By: #### 5 7021-8 ####[facility] LABCLIA [id number] [place] [address] Platelet mean volume (Bld) [Entitic vol] 10.9 fL Normal 9.0-12.7 [facility] Comment on above: Order Comment: Speci men Type: BLOOD SPECIMENOrdering Facility: [facility] Address: [address] [place] [address] Performed By: #### 5 7021-8 ####[facility] LABCLIA [id number] [place] [address] Platelets (Bld) [#/Vol] 141 10*3/uL Low 150-400 [facility] Comment on above: Order Comment: Speci men Type: BLOOD SPECIMENOrdering Facility: [facility] Address: [address] [place] [address] Performed By: #### 5 7021-8 ####[facility] LABIA [id number] [place] [address] RBC (Bld) [#/Vol] 3.23 10*6/uL Low 4.20-6.00 [facility] Comment on above: Order Comment: Speci men Type: BLOOD SPECIMENOrdering Facility: [facility] Address: [address] [place], [place] [address] Performed By: #### 5 7021-8 ####[facility] LABIA [id number] [place] [address] WBC (Bld) [#/Vol] 8.20 10*3/uL Normal 3.70-11.00 [facility] Comment on above: Order Comment: Speci men Type: BLOOD SPECIMENOrdering Facility: [facility] Address: [address] [place], [place] [address] Performed By: #### 5 7021-8 ####[facility] [id number] [place] [address] CNOVSPon 12-23-2023 CNOVSP Normal [facility] metabolic 2000 panelOrdered By: [place] Viramontes on 12-23-2023 Albumin [Mass/Vol] 3.8 g/dL Low 3.9 - 4.9 g/dL [facility] ALP [Catalytic activity/Vol] 38 U/L 38 - 113 U/L [facility] ALT [Catalytic activity/Vol] 14 U/L 10 - 54 U/L [facility] Anion gap [Moles/Vol] 8 mmol/L 8 - 15 mmol/L [facility] AST [Catalytic activity/Vol] 15 U/L 14 - 40 U/L [facility] Bilirubin [Mass/Vol] 0.6 mg/dL 0.2 - 1.3 mg/dL [facility] Calcium [Mass/Vol] 9.7 mg/dL 8.5 - 10.2 mg/dL [facility] Chloride [Moles/Vol] 101 mmol/L 98 - 107 mmol/L [facility] CO2 [Moles/Vol] 26 mmol/L 22 - 30 mmol/L [facility] Creatinine [Mass/Vol] 1.19 mg/dL 0.73 - 1.22 mg/dL [facility] GFR/1.73 sq M.predicted among non-blacks MDRD (S/P/Bld) [Vol rate/Area] 67 mL/min/{1.73_m2} - PINF [facility] Comment on above: Estimated Glomerular Filtration [...] 121 mg/dL High 74 - 99 mg/dL [facility] Comment on above: The [place] Diabete s Association (ADA) provides guidance for [...] Standards of Medical Care in Diabetes 2016, [place] Diabetes Association. Diabetes Care. 2016.39(Suppl 1). Interpretation and review of laboratory results Abnormal [facility] Potassium [Moles/Vol] 3.9 mmol/L 3.7 - 5.1 mmol/L [facility] Protein [Mass/Vol] 6.8 g/dL 6.3 - 8.0 g/dL Cl [facility] Sodium [Moles/Vol] 135 mmol/L Low 136 - 144 mmol/L [facility] Urea nitrogen [Mass/Vol] 41 mg/dL High 9 - 24 mg/dL [facility] metabolic 2000 panelon 12-23-2023 Albumin [Mass/Vol] 3.8 g/dL Low 3.9-4.9 [facility] Comment on above: Order Comment: Speci men Type: BLOOD SPECIMENOrdering Facility: [facility] Address: [address] [place] [address] Performed By: #### 2 4323-8 ####[facility] LABCLIA [id number] [place] [address] ALP [Catalytic activity/Vol] 38 U/L Normal 38-113 [facility] Comment on above: Order Comment: Speci men Type: BLOOD SPECIMENOrdering Facility: [facility] Address: [address] [place] [address] Performed By: #### 2 4323-8 ####[facility] LABCLIA [id number] [place] [address] ALT [Catalytic activity/Vol] 14 U/L Normal 10-54 [facility] Comment on above: Order Comment: Speci men Type: BLOOD SPECIMENOrdering Facility: [facility] Address: [address] [place] [address] Performed By: #### 2 4323-8 ####[facility] LABCLIA [id number] [place] [address] Anion gap [Moles/Vol] 8 mmol/L Normal 8-15 [facility] Comment on above: Order Comment: Speci men Type: BLOOD SPECIMENOrdering Facility: [facility] Address: [address] [place] [address] Performed By: #### 2 4323-8 ####[facility] LABCLIA [id number] [place] [address] AST [Catalytic activity/Vol] 15 U/L Normal 14-40 [facility] Comment on above: Order Comment: Speci men Type: BLOOD SPECIMENOrdering Facility: [facility] Address: [address] [place] [address] Performed By: #### 2 4323-8 ####[facility] LABCLIA [id number] [place] [address] Bilirubin [Mass/Vol] 0.6 mg/dL Normal 0.2-1.3 [facility] Comment on above: Order Comment: Speci men Type: BLOOD SPECIMENOrdering Facility: [facility] Address: [address] [place] [address] Performed By: #### 2 4323-8 ####[facility] LABCLIA [id number] [place] [address] Calcium [Mass/Vol] 9.7 mg/dL Normal 8.5-10.2 [facility] Comment on above: Order Comment: Speci men Type: BLOOD SPECIMENOrdering Facility: [facility] Address: [address] [place] [address] Performed By: #### 2 4323-8 ####[facility] LABCLIA [id number] [place] [address] Chloride [Moles/Vol] 101 mmol/L Normal 98-107 [facility] Comment on above: Order Comment: Speci men Type: BLOOD SPECIMENOrdering Facility: [facility] Address: [address] [place] [address] Performed By: #### 2 4323-8 ####[facility] LABCLIA [id number] [place] [address] CO2 [Moles/Vol] 26 mmol/L Normal 22-30 [facility] Comment on above: Order Comment: Speci men Type: BLOOD SPECIMENOrdering Facility: [facility] Address: [address] [place] [address] Performed By: #### 2 4323-8 ####[facility] LABCLIA [id number] [place] [address] Creatinine [Mass/Vol] 1.19 mg/dL Normal 0.73-1.22 [facility] Comment on above: Order Comment: Speci men Type: BLOOD SPECIMENOrdering Facility: [facility] Address: [address] [place] [address] Performed By: #### 2 4323-8 ####[facility] LABCLIA [id number] [place] [address] Creatinine and Glomerular filtration rate.predicted panel (S/P/Bld) 67 mL/min/1.73m??? Normal >=60 [facility] Comment on above: Order Comment: Ajay rausch Type: BLOOD SPECIMENOrdering Facility: [facility] Address: [address] [place] [address] Result Comment: Landy mated Glomerular Filtration Rate [...] actual GFR. Performed By: #### 2 4323-8 ####[facility] LABCLIA [id number] [place] [address] Glucose [Mass/Vol] 121 mg/dL High 74-99 [facility] Comment on above: Order Comment: Ajay rausch Type: BLOOD SPECIMENOrdering Facility: [facility] Address: [address] [place] [address] Result Comment: The [place] Diabetes Association (ADA) provides guidance for cutoff [...] Standards of Medical Care in Diabetes 2016, [place] Diabetes Association. Diabetes Care. 2016.39(Suppl 1). Performed By: #### 2 4323-8 ####[facility] LABCLIA [id number] [place] [address] Potassium [Moles/Vol] 3.9 mmol/L Normal 3.7-5.1 [facility] Comment on above: Order Comment: Speci men Type: BLOOD SPECIMENOrdering Facility: [facility] Address: [address] [place], [place] [address] Performed By: #### 2 4323-8 ####[facility] LABCLIA [id number] [place] [address] Protein [Mass/Vol] 6.8 g/dL Normal 6.3-8.0 [facility] Comment on above: Order Comment: Speci men Type: BLOOD SPECIMENOrdering Facility: [facility] Address: [address] [place] [address] Performed By: #### 2 4323-8 ####[facility] LABCLIA [id number] [place] [address] Sodium [Moles/Vol] 135 mmol/L Low 136-144 [facility] Comment on above: Order Comment: Speci men Type: BLOOD SPECIMENOrdering Facility: [facility] Address: [address] [place] [address] Performed By: #### 2 4323-8 ####[facility] LABCLIA [id number] [place] [address] Urea nitrogen [Mass/Vol] 41 mg/dL High 9-24 [facility] Comment on above: Order Comment: Speci men Type: BLOOD SPECIMENOrdering Facility: [facility] Address: [address] [place], [place] [address] Performed By: #### 2 4323-8 ####[facility] LABCLIA [id number] [place] [address] CNOVon 12-22-2023 CNOV Normal [facility] CNOVon 12-16-2023 CNOV Normal [facility] CNPNon 12-16-2023 CNPN Normal [facility] CNOVon 12-10-2023 CNOV Normal [facility] CNOVon 12-03-2023 CNOV Normal [facility] CNPNon 12-03-2023 CNPN Normal [facility] CNOVon 12-02-2023 CNOV Normal [facility] CNOVSPon 12-02-2023 CNOVSP Normal [facility] PET+CT Guidance for localiza tion of tumor of Skull base to mid-thigh-- W 18F-FDG Anoop 11-28-2023 IMPRESSION: HEAD/NECK: * Intensely hypermetabolic focus in the right tonsillar/oropharyng eal region. ENT evaluation recommended. CHEST: Scan findings [...] MUSCULOSKELETAL: * No FDG avid neoplastic process. Transcribe Date/Time: Nov 28 2023 6:08P Dictated by: JILL MARION MD This examination was interpreted and the report reviewed and electronically signed by: JILL MARION MD on Nov 28 2023 7:02PM EST Thank you for allowing us to participate in the care of your patient. Should there be any questions regarding this interpretation, please call [phone]. If you are unable to reach us at the number above, please feel free to contact [facility] eRadiology at [phone]. 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 INDICATION: Subsequent treatment strategy. TECHNIQUE: Radiopharmaceutical was administered IV followed about 60 minutes later by PET imaging from skull base to proximal thigh. Free breathing, low dose CT of the same body region was acquired without IV contrast for attenuation correction and anatomic localization. * CT Dose-Length Product (DLP): 169 mGy*cm * CT Dose Reduction Employed: Yes * Blood glucose (mg/dL): 95 * Radiopharmaceutical Dose: 6.6 mCi * Radiopharmaceutical: F70-Wkgshyparontoafo se (FDG) COMPARISON: PET/CT 09/15/2023 CORRELATION: CT chest 10/21/2023 RESULT: REFERENCES: SUV reference values: * Blood pool (descending aorta) activity: SUVmax 2.3 * Background liver activity: SUVmax 3.2; SUVmean 2. Heavy Equipment Operator Apprentice (topogram) images: No additional findings. Notes and limitations: * Standardized uptake values indicate the highest activity concentration (SUVmax) at a given location but can be variable and are not absolute. * Physiologic/non-neop lastic uptake is common in the brain, extraocular muscles, oral cavity, tonsils, salivary glands, vocal cords, myocardium, liver, GI tract, urinary tract, and bone marrow among others. Certain regions and organ systems can have more intense uptake, which could confound or obscure some pathology. * Unenhanced imaging is limited for the evaluation of some pathology and the acquired CT was not designed to produce or replace diagnostic CT scan quality. * PET-CT is often not sensitive for pulmonary nodules less than 8 mm. HEAD AND NECK: Imaged Head: No abnormal uptake. Neck & Lymph Nodes: There is intensely asymmetric hypermetabolic uptake in the right tonsillar/oropharyng eal region (Max SUV 12.5, image 10/08) raising suspicion for focal lesion or infection/inflammati on. ENT evaluation recommended. Thyroid: No abnormal uptake. CHEST: Lungs & Airways: Surgical changes in the left upper lung. Interval increase in size and activity associated with left lower lobe lung nodule measuring 1.3 x 2 cm (max SUV 25.1, image previously smaller measuring about 0.9 x 1.1 cm, max SUV 8). Additional hypermetabolic opacities/nodules stable to increased from prior for example an anteromedial right lung opacity measures 1 x 1.6 cm, (max SUV 5, image previously measured 0.6 x 1.2 cm, max SUV 0.9). Stable Nodule in the right lower lobe adjacent the fissure measures 1.1 x 1.2 cm (max SUV 2.5, image 3/86 previously max SUV 2.5). Few additional scattered subcentimeter nodules without significant activity. New mildly hypermetabolic opacities in the right lower lung (max SUV 4.2 posterior medial right lower lung, max SUV 3.8 posterior right lung) possibly inflammatory. Pleura & Pericardium: No abnormal uptake. Cardiovascular: No abnormal uptake. Mediastinum & Lymph Nodes: Interval increase in the right hilar uptake (max SUV 6.6, image 3/79 previously max SUV 4.4). Persistent Hypermetabolic left subpectoral mass measures 2.4 x 3.3 cm (max SUV 5.5, image 3/60 previously 6.1). Activity in the right axilla right upper extremity related to tracer injection. ABDOMEN AND PELVIS: Hepatobiliary: No abnormal uptake. Spleen: No abnormal uptake. Pancreas: No abnormal uptake. Adrenals: No abnormal uptake. Urinary Tract: No abnormal uptake. GI Tract: Scattered foci of activity associated with bowel loops can be physiological or inflammatory. Activity in the proximal duodenal region near the bimal hepatis possibly inflammatory. Peritoneum: No abnormal uptake. Vasculature: No abnormal uptake. Retroperitoneum & Lymph Nodes: No abnormal uptake. Pelvis: No abnormal uptake. MUSCULOSKELETAL: Osseous: No abnormal uptake. Soft Tissues: No abnormal uptake. Activity adjacent the right trochanter is likely inflammatory. 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 INDICATION: Subsequent treatment strategy. TECHNIQUE: Radiopharmaceutical was administered IV followed about 60 minutes later by PET imaging from skull base to proximal thigh. Free breathing, low dose CT of the same body region was acquired without IV contrast for attenuation correction and anatomic localization. * CT Dose-Length Product (DLP): 169 mGy*cm * CT Dose Reduction Employed: Yes * Blood glucose (mg/dL): 95 * Radiopharmaceutical Dose: 6.6 mCi * Radiopharmaceutical: G82-Bcrcltfrcwcuqqck se (FDG) COMPARISON: PET/CT 09/15/2023 CORRELATION: CT chest 10/21/2023 RESULT: REFERENCES: SUV reference values: * Blood pool (descending aorta) activity: SUVmax 2.3 * Background liver activity: SUVmax 3.2; SUVmean 2. Heavy Equipment Operator Apprentice (topogram) images: No additional findings. Notes and limitations: * Standardized uptake values indicate the highest activity concentration (SUVmax) at a given location but can be variable and are not absolute. * Physiologic/non-neop lastic uptake is common in the brain, extraocular muscles, oral cavity, tonsils, salivary glands, vocal cords, myocardium, liver, GI tract, urinary tract, and bone marrow among others. Certain regions and organ systems can have more intense uptake, which could confound or obscure some pathology. * Unenhanced imaging is limited for the evaluation of some pathology and the acquired CT was not designed to produce or replace diagnostic CT scan quality. * PET-CT is often not sensitive for pulmonary nodules less than 8 mm. HEAD AND NECK: Imaged Head: No abnormal uptake. Neck & Lymph Nodes: There is intensely asymmetric hypermetabolic uptake in the right tonsillar/oropharyng eal region (Max SUV 12.5, image 10/08) raising suspicion for focal lesion or infection/inflammati on. ENT evaluation recommended. Thyroid: No abnormal uptake. CHEST: Lungs & Airways: Surgical changes in the left upper lung. Interval increase in size and activity associated with left lower lobe lung nodule measuring 1.3 x 2 cm (max SUV 25.1, image previously smaller measuring about 0.9 x 1.1 cm, max SUV 8). Additional hypermetabolic opacities/nodules stable to increased from prior for example an anteromedial right lung opacity measures 1 x 1.6 cm, (max SUV 5, image previously measured 0.6 x 1.2 cm, max SUV 0.9). Stable Nodule in the right lower lobe adjacent the fissure measures 1.1 x 1.2 cm (max SUV 2.5, image previously max SUV 2.5). Few additional scattered subcentimeter nodules without significant activity. New mildly hypermetabolic opacities in the right lower lung (max SUV 4.2 posterior medial right lower lung, max SUV 3.8 posterior right lung) possibly inflammatory. Pleura & Pericardium: No abnormal uptake. Cardiovascular: No abnormal uptake. Mediastinum & Lymph Nodes: Interval increase in the right hilar uptake (max SUV 6.6, image previously max SUV 4.4). Persistent Hypermetabolic left subpectoral mass measures 2.4 x 3.3 cm (max SUV 5.5, image previously 6.1). Activity in the right axilla right upper extremity related to tracer injection. ABDOMEN AND PELVIS: Hepatobiliary: No abnormal uptake. Spleen: No abnormal uptake. Pancreas: No abnormal uptake. Adrenals: No abnormal uptake. Urinary Tract: No abnormal uptake. GI Tract: Scattered foci of activity associated with bowel loops can be physiological or inflammatory. Activity in the proximal duodenal region near the bimal hepatis possibly inflammatory. Peritoneum: No abnormal uptake. Vasculature: No abnormal uptake. Retroperitoneum & Lymph Nodes: No abnormal uptake. Pelvis: No abnormal uptake. MUSCULOSKELETAL: Osseous: No abnormal uptake. Soft Tissues: No abnormal uptake. Activity adjacent the right trochanter is likely inflammatory. IMPRESSION IMPRESSION: HEAD/NECK: * Intensely hypermetabolic focus in the right tonsillar/oropharyng eal region. ENT evaluation recommended. CHEST: Scan findings [...] ABDOMEN/PELVIS: * No FDG avid neoplastic process. MUSCULOSKELETAL (more content not included)... [facility] PET+CT Guidance for localiza tion of tumor of Skull base to mid-thigh-- W 18F-FDG IVOrdered By: [facility] Provider on 11-28-2023 [facility] THYROID STIMULATING HORMONEo n 11-26-2023 TSH Qn 3.890 m[IU]/L [facility] TSH Qnon 11-26-2023 Interpretation and review of laboratory results Normal [facility] CBC W Auto Differential pane l (Bld)on 11-25-2023 Basophils (Bld) [#/Vol] 0.03 10*3/uL NINF [facility] Basophils/100 WBC (Bld) 0.4 % [facility] Differential cell count method Nom (Bld) Auto [facility] Eosinophils (Bld) [#/Vol] 0.08 10*3/uL [facility] Eosinophils/100 WBC (Bld) 1.1 % [facility] Erythrocyte distribution width (RBC) [Ratio] 14.9 % 11.5 - 15.0 % [facility] Hematocrit (Bld) [Volume fraction] 38.1 % Low 39.0 - 51.0 % [facility] Hemoglobin (Bld) [Mass/Vol] 12.8 g/dL Low 13.0 - 17.0 g/dL [facility] Immature granulocytes (Bld) [#/Vol] 0.03 10*3/uL [facility] Immature granulocytes/100 WBC (Bld) 0.4 % [facility] Interpretation and review of laboratory results Abnormal [facility] Lymphocytes (Bld) [#/Vol] 0.66 10*3/uL Low [facility] Lymphocytes/100 WBC (Bld) 9.4 % [facility] MCH (RBC) [Entitic mass] 31.0 pg 26.0 - 34.0 pg [facility] MCHC (RBC) [Mass/Vol] 33.6 g/dL 30.5 - 36.0 g/dL [facility] MCV (RBC) [Entitic vol] 92.3 fL 80.0 - 100.0 fL [facility] Monocytes (Bld) [#/Vol] 1.02 10*3/uL High [facility] Monocytes/100 WBC (Bld) 14.5 % [facility] Neutrophils (Bld) [#/Vol] 5.22 10*3/uL [facility] Neutrophils/100 WBC (Bld) 74.2 % [facility] Nucleated RBC (Bld) [#/Vol] [facility] Nucleated RBC/100 WBC (Bld) [Ratio] 0.0 % /100 WBC [facility] Platelet mean volume (Bld) [Entitic vol] 10.7 fL 9.0 - 12.7 fL [facility] Platelets (Bld) [#/Vol] 225 10*3/uL [facility] RBC (Bld) [#/Vol] 4.13 10*6/uL Low 4.20 - 6.00 m/uL [facility] WBC (Bld) [#/Vol] 7.04 10*3/uL [facility] Basophils (Bld) [#/Vol] 0.03 10*3/uL Normal <0.11 [facility] Comment on above: Order Comment: Speci men Type: BLOOD SPECIMENOrdering Facility: [facility] Address: [address] [place] [address] Performed By: #### 5 7021-8 ####[facility] LABCLIA [id number] [place] [address] Basophils/100 WBC (Bld) 0.4 % Normal [facility] Comment on above: Order Comment: Speci men Type: BLOOD SPECIMENOrdering Facility: [facility] Address: [address] [place] [address] Performed By: #### 5 7021-8 ####[facility] LABCLIA [id number] [place] [address] Differential cell count method Nom (Bld) Auto Normal [facility] Comment on above: Order Comment: Speci men Type: BLOOD SPECIMENOrdering Facility: [facility] Address: [address] [place] [address] Performed By: #### 5 7021-8 ####[facility] LABCLIA [id number] [place] [address] Eosinophils (Bld) [#/Vol] 0.08 10*3/uL Normal <0.46 [facility] Comment on above: Order Comment: Speci men Type: BLOOD SPECIMENOrdering Facility: [facility] Address: [address] [place] [address] Performed By: #### 5 7021-8 ####[facility] LABCLIA [id number] [place] [address] Eosinophils/100 WBC (Bld) 1.1 % Normal [facility] Comment on above: Order Comment: Speci men Type: BLOOD SPECIMENOrdering Facility: [facility] Address: [address] [place] [address] Performed By: #### 5 7021-8 ####[facility] LABCLIA [id number] [place] [address] Erythrocyte distribution width (RBC) [Ratio] 14.9 % Normal 11.5-15.0 [facility] Comment on above: Order Comment: Speci men Type: BLOOD SPECIMENOrdering Facility: [facility] Address: [address] [place] [address] Performed By: #### 5 7021-8 ####[facility] LABCLIA [id number] [place] [address] Hematocrit (Bld) [Volume fraction] 38.1 % Low 39.0-51.0 [facility] Comment on above: Order Comment: Speci men Type: BLOOD SPECIMENOrdering Facility: [facility] Address: [address] [place] [address] Performed By: #### 5 7021-8 ####[facility] LABCLIA [id number] [place] [address] Hemoglobin (Bld) [Mass/Vol] 12.8 g/dL Low 13.0-17.0 [facility] Comment on above: Order Comment: Speci men Type: BLOOD SPECIMENOrdering Facility: [facility] Address: [address] [place] [address] Performed By: #### 5 7021-8 ####[facility] LABCLIA [id number] [place] [address] Immature granulocytes (Bld) [#/Vol] 0.03 10*3/uL Normal <0.10 [facility] Comment on above: Order Comment: Speci men Type: BLOOD SPECIMENOrdering Facility: [facility] Address: [address] [place] [address] Performed By: #### 5 7021-8 ####[facility] LABIA [id number] [place] [address] Immature granulocytes/100 WBC (Bld) 0.4 % Normal [facility] Comment on above: Order Comment: Speci men Type: BLOOD SPECIMENOrdering Facility: [facility] Address: [address] [place] [address] Performed By: #### 5 7021-8 ####[facility] LABCLIA [id number] [place] [address] Lymphocytes (Bld) [#/Vol] 0.66 10*3/uL Low 1.00-4.00 [facility] Comment on above: Order Comment: Speci men Type: BLOOD SPECIMENOrdering Facility: [facility] Address: [address] [place] [address] Performed By: #### 5 7021-8 ####[facility] LABCLIA [id number] [place] [address] Lymphocytes/100 WBC (Bld) 9.4 % Normal [facility] Comment on above: Order Comment: Speci men Type: BLOOD SPECIMENOrdering Facility: [facility] Address: [address] [place] [address] Performed By: #### 5 7021-8 ####[facility] LABCLIA [id number] [place] [address] MCH (RBC) [Entitic mass] 31.0 pg Normal 26.0-34.0 [facility] Comment on above: Order Comment: Speci men Type: BLOOD SPECIMENOrdering Facility: [facility] Address: [address] [place] [address] Performed By: #### 5 7021-8 ####[facility] LABCLIA [id number] [place] [address] MCHC (RBC) [Mass/Vol] 33.6 g/dL Normal 30.5-36.0 [facility] Comment on above: Order Comment: Speci men Type: BLOOD SPECIMENOrdering Facility: [facility] Address: [address] [place] [address] Performed By: #### 5 7021-8 ####[facility] LABCLIA [id number] [place] [address] MCV (RBC) [Entitic vol] 92.3 fL Normal 80.0-100.0 [facility] Comment on above: Order Comment: Speci men Type: BLOOD SPECIMENOrdering Facility: [facility] Address: [address] [place] [address] Performed By: #### 5 7021-8 ####[facility] LABCLIA [id number] [place] [address] Monocytes (Bld) [#/Vol] 1.02 10*3/uL High <0.87 [facility] Comment on above: Order Comment: Speci men Type: BLOOD SPECIMENOrdering Facility: [facility] Address: [address] [place] [address] Performed By: #### 5 7021-8 ####[facility] LABCLIA [id number] [place] [address] Monocytes/100 WBC (Bld) 14.5 % Normal [facility] Comment on above: Order Comment: Speci men Type: BLOOD SPECIMENOrdering Facility: [facility] Address: [address] [place] [address] Performed By: #### 5 7021-8 ####[facility] LABCLIA [id number] [place] [address] Neutrophils (Bld) [#/Vol] 5.22 10*3/uL Normal 1.45-7.50 [facility] Comment on above: Order Comment: Speci men Type: BLOOD SPECIMENOrdering Facility: [facility] Address: [address] [place] [address] Performed By: #### 5 7021-8 ####[facility] LABIA [id number] [place] [address] Neutrophils/100 WBC (Bld) 74.2 % Normal [facility] Comment on above: Order Comment: Speci men Type: BLOOD SPECIMENOrdering Facility: [facility] Address: [address] [place] [address] Performed By: #### 5 7021-8 ####[facility] LABCLIA [id number] [place] [address] Nucleated RBC (Bld) [#/Vol] 10*3/uL Normal <0.01 [facility] Comment on above: Order Comment: Speci men Type: BLOOD SPECIMENOrdering Facility: [facility] Address: [address] [place] [address] Performed By: #### 5 7021-8 ####[facility] LABCLIA [id number] [place] [address] Nucleated RBC/100 WBC (Bld) [Ratio] 0.0 /100 WBC Normal [facility] Comment on above: Order Comment: Speci men Type: BLOOD SPECIMENOrdering Facility: [facility] Address: [address] [place] [address] Performed By: #### 5 7021-8 ####[facility] LABCLIA [id number] [place] [address] Platelet mean volume (Bld) [Entitic vol] 10.7 fL Normal 9.0-12.7 [facility] Comment on above: Order Comment: Speci men Type: BLOOD SPECIMENOrdering Facility: [facility] Address: [address] [place] [address] Performed By: #### 5 7021-8 ####[facility] LABCLIA [id number] [place] [address] Platelets (Bld) [#/Vol] 225 10*3/uL Normal 150-400 [facility] Comment on above: Order Comment: Speci men Type: BLOOD SPECIMENOrdering Facility: [facility] Address: [address] [place] [address] Performed By: #### 5 7021-8 ####[facility] LABCLIA [id number] [place] [address] RBC (Bld) [#/Vol] 4.13 10*6/uL Low 4.20-6.00 [facility] Comment on above: Order Comment: Speci men Type: BLOOD SPECIMENOrdering Facility: [facility] Address: [address] [place] [address] Performed By: #### 5 7021-8 ####[facility] LABCLIA [id number] [place] [address] WBC (Bld) [#/Vol] 7.04 10*3/uL Normal 3.70-11.00 [facility] Comment on above: Order Comment: Speci men Type: BLOOD SPECIMENOrdering Facility: [facility] Address: [address] [place] [address] Performed By: #### 5 7021-8 ####[facility] LABCLIA [id number] [place] [address] Comprehensive metabolic 2000 panelOrdered By: Sim Pereyra on 11-25-2023 Albumin [Mass/Vol] 3.8 g/dL Low 3.9 - 4.9 g/dL [facility] ALP [Catalytic activity/Vol] 51 U/L 38 - 113 U/L [facility] ALT [Catalytic activity/Vol] 25 U/L 10 - 54 U/L [facility] Anion gap [Moles/Vol] 12 mmol/L 9 - 18 mmol/L [facility] AST [Catalytic activity/Vol] 18 U/L 14 - 40 U/L [facility] Bilirubin [Mass/Vol] 0.8 mg/dL 0.2 - 1.3 mg/dL [facility] Calcium [Mass/Vol] 9.1 mg/dL 8.5 - 10.2 mg/dL [facility] Chloride [Moles/Vol] 100 mmol/L 97 - 105 mmol/L [facility] CO2 [Moles/Vol] 25 mmol/L 22 - 30 mmol/L [facility] Creatinine [Mass/Vol] 1.20 mg/dL 0.73 - 1.22 mg/dL [facility] GFR/1.73 sq M.predicted among non-blacks MDRD (S/P/Bld) [Vol rate/Area] 67 mL/min/{1.73_m2} - PINF [facility] Comment on above: Estimated Glomerular Filtration Rate (eGFR) is calculated using the 202 CKD-EPI creatinine equation. This equation utilizes serum creatinine, sex, and age as parameters. The creatinine assay has traceable calibration to isotope dilution-mass spectrometry. Refer to KDIGO guidelines for clinical interpretation. In patients with unstable renal function, e.g. those with acute kidney injury, the eGFR may not accurately reflect actual GFR. Glucose [Mass/Vol] 100 mg/dL High 74 - 99 mg/dL [facility] Comment on above: The [place] Diabete s Association (ADA) provides guidance for [...] Standards of Medical Care in Diabetes 2016, [place] Diabetes Association. Diabetes Care. 2016.39(Suppl 1). Interpretation and review of laboratory results Abnormal [facility] Potassium [Moles/Vol] 3.9 mmol/L 3.7 - 5.1 mmol/L [facility] Protein [Mass/Vol] 7.3 g/dL 6.3 - 8.0 g/dL [facility] Sodium [Moles/Vol] 137 mmol/L 136 - 144 mmol/L [facility] Urea nitrogen [Mass/Vol] 15 mg/dL 9 - 24 mg/dL [facility] Comprehensive metabolic 2000 panelon 11-25-2023 Albumin [Mass/Vol] 3.8 g/dL Low 3.9-4.9 [facility] Comment on above: Order Comment: Speci men Type: BLOOD SPECIMENOrdering Facility: [facility] Address: [address] [place] [address] Performed By: #### 2 4323-8 ####[facility] LABCLIA [id number] [place] [address] ALP [Catalytic activity/Vol] 51 U/L Normal 38-113 [facility] Comment on above: Order Comment: Speci men Type: BLOOD SPECIMENOrdering Facility: [facility] Address: [address] [place] [address] Performed By: #### 2 4323-8 ####[facility] LABCLIA [id number] [place] [address] ALT [Catalytic activity/Vol] 25 U/L Normal 10-54 [facility] Comment on above: Order Comment: Speci men Type: BLOOD SPECIMENOrdering Facility: [facility] Address: [address] [place] [address] Performed By: #### 2 4323-8 ####[facility] LABCLIA [id number] [place] [address] Anion gap [Moles/Vol] 12 mmol/L Normal 9-18 [facility] Comment on above: Order Comment: Speci men Type: BLOOD SPECIMENOrdering Facility: [facility] Address: [address] [place] [address] Performed By: #### 2 4323-8 ####[facility] LABCLIA [id number] [place] [address] AST [Catalytic activity/Vol] 18 U/L Normal 14-40 [facility] Comment on above: Order Comment: Speci men Type: BLOOD SPECIMENOrdering Facility: [facility] Address: [address] [place] [address] Performed By: #### 2 4323-8 ####[facility] LABCLIA [id number] [place] [address] Bilirubin [Mass/Vol] 0.8 mg/dL Normal 0.2-1.3 [facility] Comment on above: Order Comment: Speci men Type: BLOOD SPECIMENOrdering Facility: [facility] Address: [address] [place] [address] Performed By: #### 2 4323-8 ####[facility] LABCLIA [id number] [place] [address] Calcium [Mass/Vol] 9.1 mg/dL Normal 8.5-10.2 [facility] Comment on above: Order Comment: Speci men Type: BLOOD SPECIMENOrdering Facility: [facility] Address: [address] [place] [address] Performed By: #### 2 4323-8 ####[facility] LABCLIA [id number] [place] [address] Chloride [Moles/Vol] 100 mmol/L Normal 97-105 [facility] Comment on above: Order Comment: Speci men Type: BLOOD SPECIMENOrdering Facility: [facility] Address: [address] [place] [address] Performed By: #### 2 4323-8 ####[facility] LABCLIA [id number] [place] [address] CO2 [Moles/Vol] 25 mmol/L Normal 22-30 [facility] Comment on above: Order Comment: Speci men Type: BLOOD SPECIMENOrdering Facility: [facility] Address: [address] [place] [address] Performed By: #### 2 4323-8 ####[facility] LABCLIA [id number] [place] [address] Creatinine [Mass/Vol] 1.20 mg/dL Normal 0.73-1.22 [facility] Comment on above: Order Comment: Speci men Type: BLOOD SPECIMENOrdering Facility: [facility] Address: [address] [place] [address] Performed By: #### 2 4323-8 ####[facility] LABCLIA [id number] [place] [address] Creatinine and Glomerular filtration rate.predicted panel (S/P/Bld) 67 mL/min/1.73m??? Normal >=60 [facility] Comment on above: Order Comment: Speci men Type: BLOOD SPECIMENOrdering Facility: [facility] Address: [address] [place] [address] Result Comment: Landy mated Glomerular Filtration Rate [...] actual GFR. Performed By: #### 2 4323-8 ####[facility] LABCLIA [id number] [place] [address] Glucose [Mass/Vol] 100 mg/dL High 74-99 [facility] Comment on above: Order Comment: Ajay rausch Type: BLOOD SPECIMENOrdering Facility: [facility] Address: [address] [place] [address] Result Comment: The [place] Diabetes Association (ADA) provides guidance for cutoff [...] Standards of Medical Care in Diabetes 2016, [place] Diabetes Association. Diabetes Care. 2016.39(Suppl 1). Performed By: #### 2 4323-8 ####[facility] LABCLIA [id number] [place] [address] Potassium [Moles/Vol] 3.9 mmol/L Normal 3.7-5.1 [facility] Comment on above: Order Comment: Ajay rausch Type: BLOOD SPECIMENOrdering Facility: [facility] Address: [address] [id number] Performed By: #### 2 4323-8 ####[facility] LABCLIA [id number] [place] [address] Protein [Mass/Vol] 7.3 g/dL Normal 6.3-8.0 [facility] Comment on above: Order Comment: Speci men Type: BLOOD SPECIMENOrdering Facility: [facility] Address: [address] [place] [address] Performed By: #### 2 4323-8 ####[facility] LABCLIA [id number] [place] [address] Sodium [Moles/Vol] 137 mmol/L Normal 136-144 [facility] Comment on above: Order Comment: Speci men Type: BLOOD SPECIMENOrdering Facility: [facility] Address: [address] [place] [address] Performed By: #### 2 4323-8 ####[facility] LABCLIA [id number] [place] [address] Urea nitrogen [Mass/Vol] 15 mg/dL Normal 9-24 [facility] Comment on above: Order Comment: Speci men Type: BLOOD SPECIMENOrdering Facility: [facility] Address: [address] [place] [address] Performed By: #### 2 4323-8 ####[facility] LABCLIA [id number] [place] [address] GLUCOSE, BLOOD (POC)on 11-24 Glucose [Mass/Vol] 95 mg/dL 74 - 99 mg/dL [facility] Comment on above: Location:[facility], [address] , [place], [place], [address] The Accu-Chek Inform II glucose meter has [...] blood gas instrument) in the above situations. [facility] NM PET/CT SKULL-THIGH SUBQon 11-25-2023 NM PET/CT SKULL-THIGH SUBQ Normal [facility] PET+CT Guidance for localiza tion of tumor of Skull base to mid-thigh-- W [id number]-FDG Anoop 11-25-2023 Radiology Study observation (narrative) [facility] TSH SerPl-aCncon 11-25-2023 TSH Qn 3.890 m[IU]/L Normal 0.270-4.200 [facility] Comment on above: Order Comment: Speci men Type: BLOOD SPECIMENOrdering Facility: [facility] Address: [address] [place] [address] Performed By: #### 3 016-3 ####[facility] LABCLIA [id number] [address] [place] CNPNon 11-24-2023 CNPN Normal [facility] CNOVon 11-21-2023 CNOV Normal [facility] CNPNon 11-11-2023 CNPN Normal [facility] CBC W Auto Differential pane l (Bld)on 11-04-2023 Basophils (Bld) [#/Vol] <0.11 k/uL [facility] Basophils/100 WBC (Bld) 0.4 % [facility] Differential cell count method Nom (Bld) Auto [facility] Eosinophils (Bld) [#/Vol] 0.16 10*3/uL <0.46 k/uL [facility] Eosinophils/100 WBC (Bld) 2.9 % [facility] Erythrocyte distribution width (RBC) [Ratio] 17.0 % High 11.5 - 15.0 % [facility] Hematocrit (Bld) [Volume fraction] 37.1 % Low 39.0 - 51.0 % [facility] Hemoglobin (Bld) [Mass/Vol] 12.5 g/dL Low 13.0 - 17.0 g/dL [facility] Immature granulocytes (Bld) [#/Vol] 0.03 10*3/uL <0.10 k/uL [facility] Immature granulocytes/100 WBC (Bld) 0.5 % [facility] Lymphocytes (Bld) [#/Vol] 0.86 10*3/uL Low 1.00 - 4.00 k/uL [facility] Lymphocytes/100 WBC (Bld) 15.4 % [facility] MCH (RBC) [Entitic mass] 30.9 pg 26.0 - 34.0 pg [facility] MCHC (RBC) [Mass/Vol] 33.7 g/dL 30.5 - 36.0 g/dL [facility] MCV (RBC) [Entitic vol] 91.6 fL 80.0 - 100.0 fL [facility] Monocytes (Bld) [#/Vol] 0.95 10*3/uL High <0.87 k/uL [facility] Monocytes/100 WBC (Bld) 17.0 % [facility] Neutrophils (Bld) [#/Vol] 3.57 10*3/uL 1.45 - 7.50 k/uL [facility] Neutrophils/100 WBC (Bld) 63.8 % [facility] Nucleated RBC (Bld) [#/Vol] <0.01 k/uL [facility] Nucleated RBC/100 WBC (Bld) [Ratio] 0.0 /100 WBC [facility] Platelet mean volume (Bld) [Entitic vol] 10.7 fL 9.0 - 12.7 fL [facility] Platelets (Bld) [#/Vol] 186 10*3/uL 150 - 400 k/uL [facility] RBC (Bld) [#/Vol] 4.05 10*6/uL Low 4.20 - 6.00 m/uL [facility] WBC (Bld) [#/Vol] 5.59 10*3/uL 3.70 - 11.00 k/u L [facility] Basophils (Bld) [#/Vol] 10*3/uL Normal <0.11 [facility] Comment on above: Order Comment: Speci men Type: BLOOD SPECIMENOrdering Facility: [facility] Address: [address] [place] [address] Performed By: #### 5 7021-8 ####[facility] LABCLIA [id number] [place] [address] Basophils/100 WBC (Bld) 0.4 % Normal [facility] Comment on above: Order Comment: Speci men Type: BLOOD SPECIMENOrdering Facility: [facility] Address: [address] [place] [address] Performed By: #### 5 7021-8 ####[facility] LABCLIA [id number] [place] [address] Differential cell count method Nom (Bld) Auto Normal [facility] Comment on above: Order Comment: Speci men Type: BLOOD SPECIMENOrdering Facility: [facility] Address: [address] [place] [address] Performed By: #### 5 7021-8 ####[facility] LABCLIA [id number] [place] [address] Eosinophils (Bld) [#/Vol] 0.16 10*3/uL Normal <0.46 [facility] Comment on above: Order Comment: Speci men Type: BLOOD SPECIMENOrdering Facility: [facility] Address: [address] [place] [address] Performed By: #### 5 7021-8 ####[facility] LABCLIA [id number] [place] [address] Eosinophils/100 WBC (Bld) 2.9 % Normal [facility] [facility] Comment on above: Order Comment: Speci men Type: BLOOD SPECIMENOrdering Facility: [facility] Address: [address] [place] [address] Performed By: #### 5 7021-8 ####[facility] LABCLIA [id number] [place] [address] Erythrocyte distribution width (RBC) [Ratio] 17.0 % High 11.5-15.0 [facility] Comment on above: Order Comment: Speci men Type: BLOOD SPECIMENOrdering Facility: [facility] Address: [address] [place] [address] Performed By: #### 5 7021-8 ####[facility] LABCLIA [id number] [place] [address] Hematocrit (Bld) [Volume fraction] 37.1 % Low 39.0-51.0 [facility] Comment on above: Order Comment: Speci men Type: BLOOD SPECIMENOrdering Facility: [facility] Address: [address] [place] [address] Performed By: #### 5 7021-8 ####[facility] LABCLIA [id number] [place] [address] Hemoglobin (Bld) [Mass/Vol] 12.5 g/dL Low 13.0-17.0 [facility] Comment on above: Order Comment: Speci men Type: BLOOD SPECIMENOrdering Facility: [facility] Address: [address] [place] [address] Performed By: #### 5 7021-8 ####[facility] LABCLIA [id number] [place] [address] Immature granulocytes (Bld) [#/Vol] 0.03 10*3/uL Normal <0.10 [facility] Comment on above: Order Comment: Speci men Type: BLOOD SPECIMENOrdering Facility: [facility] Address: [address] [place] [address] Performed By: #### 5 7021-8 ####[facility] LABCLIA [id number] [place] [address] Immature granulocytes/100 WBC (Bld) 0.5 % Normal [facility] Comment on above: Order Comment: Speci men Type: BLOOD SPECIMENOrdering Facility: [facility] Address: [address] [place] [address] Performed By: #### 5 7021-8 ####[facility] LABIA [id number] [place] [address] Lymphocytes (Bld) [#/Vol] 0.86 10*3/uL Low 1.00-4.00 [facility] Comment on above: Order Comment: Speci men Type: BLOOD SPECIMENOrdering Facility: [facility] Address: [address] [place] [address] Performed By: #### 5 7021-8 ####[facility] LABCLIA [id number] [place] [address] Lymphocytes/100 WBC (Bld) 15.4 % Normal [facility] Comment on above: Order Comment: Speci men Type: BLOOD SPECIMENOrdering Facility: [facility] Address: [address] [place] [address] Performed By: #### 5 7021-8 ####[facility] LABCLIA [id number] [place] [address] MCH (RBC) [Entitic mass] 30.9 pg Normal 26.0-34.0 [facility] Comment on above: Order Comment: Speci men Type: BLOOD SPECIMENOrdering Facility: [facility] Address: [address] [place] [address] Performed By: #### 5 7021-8 ####[facility] LABIA [id number] [place] [address] MCHC (RBC) [Mass/Vol] 33.7 g/dL Normal 30.5-36.0 [facility] Comment on above: Order Comment: Speci men Type: BLOOD SPECIMENOrdering Facility: [facility] Address: [address] [place] [address] Performed By: #### 5 7021-8 ####[facility] LABCLIA [id number] [place] [address] MCV (RBC) [Entitic vol] 91.6 fL Normal 80.0-100.0 [facility] Comment on above: Order Comment: Speci men Type: BLOOD SPECIMENOrdering Facility: [facility] Address: [address] [place] [address] Performed By: #### 5 7021-8 ####[facility] LABIA [id number] [place] [address] Monocytes (Bld) [#/Vol] 0.95 10*3/uL High <0.87 [facility] Comment on above: Order Comment: Speci men Type: BLOOD SPECIMENOrdering Facility: [facility] Address: [address] [place] [address] Performed By: #### 5 7021-8 ####[facility] LABCLIA [id number] [place] [address] Monocytes/100 WBC (Bld) 17.0 % Normal [facility] Comment on above: Order Comment: Speci men Type: BLOOD SPECIMENOrdering Facility: [facility] Address: [address] [place] [address] Performed By: #### 5 7021-8 ####[facility] LABCLIA [id number] [place] [address] Neutrophils (Bld) [#/Vol] 3.57 10*3/uL Normal 1.45-7.50 [facility] Comment on above: Order Comment: Speci men Type: BLOOD SPECIMENOrdering Facility: [facility] Address: [address] [place] [address] Performed By: #### 5 7021-8 ####[facility] LABCLIA [id number] [place] [address] Neutrophils/100 WBC (Bld) 63.8 % Normal [facility] Comment on above: Order Comment: Speci men Type: BLOOD SPECIMENOrdering Facility: [facility] Address: [address] [place] [address] Performed By: #### 5 7021-8 ####[facility] LABCLIA [id number] [place] [address] Nucleated RBC (Bld) [#/Vol] 10*3/uL Normal <0.01 [facility] Comment on above: Order Comment: Speci men Type: BLOOD SPECIMENOrdering Facility: [facility] Address: [address] [place] [address] Performed By: #### 5 7021-8 ####[facility] LABCLIA [id number] [place] [address] Nucleated RBC/100 WBC (Bld) [Ratio] 0.0 /100 WBC Normal [facility] Comment on above: Order Comment: Speci men Type: BLOOD SPECIMENOrdering Facility: [facility] Address: [address] [place] [address] Performed By: #### 5 7021-8 ####[facility] LABCLIA [id number] [place] [address] Platelet mean volume (Bld) [Entitic vol] 10.7 fL Normal 9.0-12.7 [facility] Comment on above: Order Comment: Speci men Type: BLOOD SPECIMENOrdering Facility: [facility] Address: [address] [place] [address] Performed By: #### 5 7021-8 ####[facility] LABCLIA [id number] [place] [address] Platelets (Bld) [#/Vol] 186 10*3/uL Normal 150-400 [facility] Comment on above: Order Comment: Speci men Type: BLOOD SPECIMENOrdering Facility: [facility] Address: [address] [place] [address] Performed By: #### 5 7021-8 ####[facility] LABCLIA [id number] [place] [address] RBC (Bld) [#/Vol] 4.05 10*6/uL Low 4.20-6.00 [facility] Comment on above: Order Comment: Speci men Type: BLOOD SPECIMENOrdering Facility: [facility] Address: [address] [place] [address] Performed By: #### 5 7021-8 ####[facility] LABCLIA [id number] [place] [address] WBC (Bld) [#/Vol] 5.59 10*3/uL Normal 3.70-11.00 [facility] Comment on above: Order Comment: Speci men Type: BLOOD SPECIMENOrdering Facility: [facility] Address: [address] [place] [address] Performed By: #### 5 7021-8 ####[facility] LABCLIA [id number] [place] [address] CNCNPATEDon 11-04-2023 CNCNPATED Normal [facility] CNOVSPon 11-04-2023 CNOVSP Normal [facility] CNPNon 11-04-2023 CNPN Normal [facility] Comprehensive metabolic 2000 panelon 11-04-2023 Albumin [Mass/Vol] 4.0 g/dL 3.9 - 4.9 g/dL [facility] ALP [Catalytic activity/Vol] 65 U/L 38 - 113 U/L [facility] ALT [Catalytic activity/Vol] 415 U/L High 10 - 54 U/L [facility] Anion gap [Moles/Vol] 14 mmol/L 9 - 18 mmol/L [facility] AST [Catalytic activity/Vol] 100 U/L High 14 - 40 U/L [facility] Bilirubin [Mass/Vol] 1.0 mg/dL 0.2 - 1.3 mg/dL [facility] Calcium [Mass/Vol] 9.9 mg/dL 8.5 - 10.2 mg/dL [facility] Chloride [Moles/Vol] 107 mmol/L High 97 - 105 mmol/L [facility] CO2 [Moles/Vol] 23 mmol/L 22 - 30 mmol/L [facility] Creatinine [Mass/Vol] 1.23 mg/dL High 0.73 - 1.22 mg/dL [facility] Estimated Glomerular Filtration Rate 65 mL/min/1.73m >=60 mL/min/1.73m [facility] Glucose [Mass/Vol] 95 mg/dL 74 - 99 mg/dL [facility] Potassium [Moles/Vol] 3.5 mmol/L Low 3.7 - 5.1 mmol/L [facility] Protein [Mass/Vol] 7.3 g/dL 6.3 - 8.0 g/dL [facility] Sodium [Moles/Vol] 144 mmol/L 136 - 144 mmol/L [facility] Urea nitrogen [Mass/Vol] 19 mg/dL 9 - 24 mg/dL [facility] Albumin [Mass/Vol] 4.0 g/dL Normal 3.9-4.9 [facility] Comment on above: Order Comment: Speci men Type: BLOOD SPECIMENOrdering Facility: [facility] Address: [address] [place] [address] Performed By: #### 2 4323-8 ####[facility] LABCLIA [id number] [place] [address] ALP [Catalytic activity/Vol] 65 U/L Normal 38-113 [facility] Comment on above: Order Comment: Speci men Type: BLOOD SPECIMENOrdering Facility: [facility] Address: [address] [place] [address] Performed By: #### 2 4323-8 ####[facility] LABCLIA [id number] [place] [address] ALT [Catalytic activity/Vol] 415 U/L High 10-54 [facility] Comment on above: Order Comment: Speci men Type: BLOOD SPECIMENOrdering Facility: [facility] Address: [address] [place] [address] Performed By: #### 2 4323-8 ####[facility] LABCLIA [id number] [place] [address] Anion gap [Moles/Vol] 14 mmol/L Normal 9-18 [facility] Comment on above: Order Comment: Speci men Type: BLOOD SPECIMENOrdering Facility: [facility] Address: [address] [place] [address] Performed By: #### 2 4323-8 ####[facility] LABCLIA [id number] [place] [address] AST [Catalytic activity/Vol] 100 U/L High 14-40 [facility] Comment on above: Order Comment: Speci men Type: BLOOD SPECIMENOrdering Facility: [facility] Address: [address] [place] [address] Performed By: #### 2 4323-8 ####[facility] LABCLIA [id number] [place] [address] Bilirubin [Mass/Vol] 1.0 mg/dL Normal 0.2-1.3 [facility] Comment on above: Order Comment: Speci men Type: BLOOD SPECIMENOrdering Facility: [facility] Address: [address] [place] [address] Performed By: #### 2 4323-8 ####[facility] LABCLIA [id number] [place] [address] Calcium [Mass/Vol] 9.9 mg/dL Normal 8.5-10.2 [facility] Comment on above: Order Comment: Speci men Type: BLOOD SPECIMENOrdering Facility: [facility] Address: [address] [place] [address] Performed By: #### 2 4323-8 ####[facility] LABCLIA [id number] [place] [address] Chloride [Moles/Vol] 107 mmol/L High 97-105 [facility] Comment on above: Order Comment: Speci men Type: BLOOD SPECIMENOrdering Facility: [facility] Address: [address] [place] [address] Performed By: #### 2 4323-8 ####[facility] LABCLIA [id number] [place] [address] CO2 [Moles/Vol] 23 mmol/L Normal 22-30 [facility] Comment on above: Order Comment: Speci men Type: BLOOD SPECIMENOrdering Facility: [facility] Address: [address] [place] [address] Performed By: #### 2 4323-8 ####[facility] LABCLIA [id number] [place] [address] Creatinine [Mass/Vol] 1.23 mg/dL High 0.73-1.22 [facility] Comment on above: Order Comment: Speci men Type: BLOOD SPECIMENOrdering Facility: [facility] Address: [address] [place], [place] [id number] Performed By: #### 2 4323-8 ####[facility] LABCLIA [id number] [place] [address] Creatinine and Glomerular filtration rate.predicted panel (S/P/Bld) 65 mL/min/1.73m??? Normal >=60 [facility] Comment on above: Order Comment: Ajay shalom Type: BLOOD SPECIMENOrdering Facility: [facility] Address: [address] [place] [address] Result Comment: Landy mated Glomerular Filtration Rate [...] actual GFR. Performed By: #### 2 4323-8 ####[facility] LABCLIA [id number] [place] [address] Glucose [Mass/Vol] 95 mg/dL Normal 74-99 [facility] Comment on above: Order Comment: Ajay rausch Type: BLOOD SPECIMENOrdering Facility: [facility] Address: [address] [place], [place] [id number] Result Comment: The [place] [employer] (ADA) provides guidance for cutoff [...] Standards of Medical Care in Diabetes 2016, [place] [employer]. Diabetes Care. 2016.39(Suppl 1). Performed By: #### 2 4323-8 ####[facility] LABCLIA [id number] [place] [address] Potassium [Moles/Vol] 3.5 mmol/L Low 3.7-5.1 [facility] Comment on above: Order Comment: Speci men Type: BLOOD SPECIMENOrdering Facility: [facility] Address: [address] [place] [address] Performed By: #### 2 4323-8 ####[facility] LABCLIA [id number] [place] [address] Protein [Mass/Vol] 7.3 g/dL Normal 6.3-8.0 [facility] Comment on above: Order Comment: Speci men Type: BLOOD SPECIMENOrdering Facility: [facility] Address: [address] [place] [address] Performed By: #### 2 4323-8 ####[facility] LABCLIA [id number] [place] [address] Sodium [Moles/Vol] 144 mmol/L Normal 136-144 [facility] Comment on above: Order Comment: Speci men Type: BLOOD SPECIMENOrdering Facility: [facility] Address: [address] [place] [address] Performed By: #### 2 4323-8 ####[facility] LABCLIA [id number] [place] [address] Urea nitrogen [Mass/Vol] 19 mg/dL Normal 9-24 [facility] Comment on above: Order Comment: Speci men Type: BLOOD SPECIMENOrdering Facility: [facility] Address: [address] [place] [address] Performed By: #### 2 4323-8 ####[facility] LABIA [id number] [place] [address] CNPNon 10-24-2023 CNPN Normal [facility] CNPNon 10-21-2023 CNPN Normal [facility] CT CHEST W IVCONon CT [facility]ST W [facility]CON [facility] Chest W contrast Anoop IMPRESSION: 1. Numerous bilateral pulmonary nodules. The largest nodule in the right lower lobe has increased in size when compared to prior exam. Other nodules are overall stable when compared to prior studies. 2. No evidence of intrathoracic lymphadenopathy. Transcribe Date/Time: Oct 21 2023 5:29P Dictated by: PRESTON DC MD This examination was interpreted and the report reviewed and electronically signed by: PRESTON DC MD on Oct 21 2023 5:39PM EST Thank you for allowing us to participate in the care of your patient. Should there be any questions regarding this interpretation, please call [phone]. If you are unable to reach us at the number above, please feel free to contact [facility] eRadiology at [phone]. 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 Technique: Spiral CT acquisition of the chest from the thoracic inlet to the upper abdomen following IV contrast. MQ: CTCW_6 Contrast: 50 mL Omnipaque [address] Radiation dose: Integrated Dose-length product (DLP) for this visit = 192 mGy*cm CT Dose Reduction Employed: Automated exposure control(AEC) and iterative recon Comparison: PET/CT performed 09/15/2023. CT chest performed 09/09/2022 RESULT: Limitations: None. Lines, tubes, and devices: None. Lung parenchyma and airways: Postsurgical changes are noted in keeping with left upper lobectomy. Patchy opacity is seen anteriorly in the left lower lobe likely relating to posttreatment change. Multiple bilateral pulmonary nodules are noted. These include the following: Right upper lobe (4:22) 0.3 cm, stable Right upper lobe (4:85) 0.4 cm, previously 0.6 cm Right middle lobe (4:113) 0.4 cm, previously 0.6 cm Right lower lobe (4:130) 1.5 x 1.2 cm, previously 1.3 x 0.9 cm Right lower lobe (4:130) posterior 0.6 cm nodule, previously 0.3 cm Left lower lobe (4:108) 1.8 x 1.2 cm, stable from prior dated 09/17/2022 The central airways are widely patent. Pleural space: No pleural effusion. No pleural thickening. Lower neck, lymph nodes, and mediastinum: The imaged thyroid gland is normal. No lymphadenopathy in the supraclavicular, axillary, mediastinal, or hilar regions. Heart, pericardium, and thoracic vessels: The thoracic aorta and main pulmonary artery are normal in caliber. The cardiac chambers are normal in size. Coronary artery atherosclerotic calcification is noted. No pericardial effusion or thickening. Bones and soft tissues: Degenerative changes are noted in the thoracic spine. There has been a prior median sternotomy. Superficial soft tissues are unremarkable. Upper abdomen: No abnormality in the imaged upper abdomen. Heavy Equipment Operator Apprentice (topogram) images: No additional findings. 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 Technique: Spiral CT acquisition of the chest from the thoracic inlet to the upper abdomen following IV contrast. MQ: CTCW_6 Contrast: 50 mL Omnipaque [address] Radiation dose: Integrated Dose-length product (DLP) for this visit = 192 mGy*cm CT Dose Reduction Employed: Automated exposure control(AEC) and iterative recon Comparison: PET/CT performed 09/15/2023. CT chest performed 09/09/2022 RESULT: Limitations: None. Lines, tubes, and devices: None. Lung parenchyma and airways: Postsurgical changes are noted in keeping with left upper lobectomy. Patchy opacity is seen anteriorly in the left lower lobe likely relating to posttreatment change. Multiple bilateral pulmonary nodules are noted. These include the following: Right upper lobe (4:22) 0.3 cm, stable Right upper lobe (4:85) 0.4 cm, previously 0.6 cm Right middle lobe (4:113) 0.4 cm, previously 0.6 cm Right lower lobe (4:130) 1.5 x 1.2 cm, previously 1.3 x 0.9 cm Right lower lobe (4:130) posterior 0.6 cm nodule, previously 0.3 cm Left lower lobe (4:108) 1.8 x 1.2 cm, stable from prior dated 09/17/2022 The central airways are widely patent. Pleural space: No pleural effusion. No pleural thickening. Lower neck, lymph nodes, and mediastinum: The imaged thyroid gland is normal. No lymphadenopathy in the supraclavicular, axillary, mediastinal, or hilar regions. Heart, pericardium, and thoracic vessels: The thoracic aorta and main pulmonary artery are normal in caliber. The cardiac chambers are normal in size. Coronary artery atherosclerotic calcification is noted. No pericardial effusion or thickening. Bones and soft tissues: Degenerative changes are noted in the thoracic spine. There has been a prior median sternotomy. Superficial soft tissues are unremarkable. Upper abdomen: No abnormality in the imaged upper abdomen. Heavy Equipment Operator Apprentice (topogram) images: No additional findings. IMPRESSION IMPRESSION: 1. Numerous bilateral pulmonary nodules. The largest nodule in the right lower lobe has increased in size when compared to prior exam. Other nodules are overall stable when compared to prior studies. 2. No evidence of intrathoracic lymphadenopathy. Transcribe Date/Time: Oct 21 2023 5:29P Dictated by: PRESTON DC MD This examination was interpreted and the report reviewed and electronically signed by: PRESTON DC MD on Oct 21 2023 5:39PM EST Thank you for allowing us to participate in the care of your patient. Should there be any questions regarding this interpretation, please call [phone]. If you are unable to reach us at the number above, please feel free to contact [facility] eRadiology at [phone]. [facility] Radiology Study observation (narrative) [facility] CT Chest W contrast IVOrdere d By: [facility] Provider on 10-21-2023 [facility] CBC W Auto Differential pane l (Bld)on 10-20-2023 Basophils (Bld) [#/Vol] <0.11 k/uL [facility] Basophils/100 WBC (Bld) 0.4 % [facility] Differential cell count method Nom (Bld) Auto [facility] Eosinophils (Bld) [#/Vol] 0.07 10*3/uL <0.46 k/uL [facility] Eosinophils/100 WBC (Bld) 1.3 % [facility] Erythrocyte distribution width (RBC) [Ratio] 15.9 % High 11.5 - 15.0 % [facility] Hematocrit (Bld) [Volume fraction] 40.6 % 39.0 - 51.0 % [facility] Hemoglobin (Bld) [Mass/Vol] 13.6 g/dL 13.0 - 17.0 g/dL [facility] Immature granulocytes (Bld) [#/Vol] 0.03 10*3/uL <0.10 k/uL [facility] Immature granulocytes/100 WBC (Bld) 0.5 % [facility] Lymphocytes (Bld) [#/Vol] 1.04 10*3/uL 1.00 - 4.00 k/uL [facility] Lymphocytes/100 WBC (Bld) 18.6 % [facility] MCH (RBC) [Entitic mass] 30.4 pg 26.0 - 34.0 pg [facility] MCHC (RBC) [Mass/Vol] 33.5 g/dL 30.5 - 36.0 g/dL [facility] MCV (RBC) [Entitic vol] 90.6 fL 80.0 - 100.0 fL [facility] Monocytes (Bld) [#/Vol] 0.78 10*3/uL <0.87 k/uL [facility] Monocytes/100 WBC (Bld) 13.9 % [facility] Neutrophils (Bld) [#/Vol] 3.66 10*3/uL 1.45 - 7.50 k/uL [facility] Neutrophils/100 WBC (Bld) 65.3 % [facility] Nucleated RBC (Bld) [#/Vol] <0.01 k/uL [facility] Nucleated RBC/100 WBC (Bld) [Ratio] 0.0 /100 WBC [facility] Platelet mean volume (Bld) [Entitic vol] 10.7 fL 9.0 - 12.7 fL [facility] Platelets (Bld) [#/Vol] 214 10*3/uL 150 - 400 k/uL [facility] RBC (Bld) [#/Vol] 4.48 10*6/uL 4.20 - 6.00 m/uL [facility] WBC (Bld) [#/Vol] 5.60 10*3/uL 3.70 - 11.00 k/u L [facility] Basophils (Bld) [#/Vol] 10*3/uL Normal <0.11 [facility] Comment on above: Order Comment: Speci men Type: BLOOD SPECIMENOrdering Facility: [facility] Address: [address] [place] [address] Performed By: #### 5 7021-8 ####[facility] LABCLIA [id number] [place] [address] Basophils/100 WBC (Bld) 0.4 % Normal [facility] Comment on above: Order Comment: Speci men Type: BLOOD SPECIMENOrdering Facility: [facility] Address: [address] [place] [address] Performed By: #### 5 7021-8 ####[facility] LABCLIA [id number] [place] [address] Differential cell count method Nom (Bld) Auto Normal [facility] Comment on above: Order Comment: Speci men Type: BLOOD SPECIMENOrdering Facility: [facility] Address: [address] [place] [address] Performed By: #### 5 7021-8 ####[facility] LABCLIA [id number] [place] [address] Eosinophils (Bld) [#/Vol] 0.07 10*3/uL Normal <0.46 [facility] Comment on above: Order Comment: Speci men Type: BLOOD SPECIMENOrdering Facility: [facility] Address: [address] [place] [address] Performed By: #### 5 7021-8 ####[facility] LABCLIA [id number] [place] [address] Eosinophils/100 WBC (Bld) 1.3 % Normal [facility] Comment on above: Order Comment: Speci men Type: BLOOD SPECIMENOrdering Facility: [facility] Address: [address] [place] [address] Performed By: #### 5 7021-8 ####[facility] LABCLIA [id number] [place] [address] Erythrocyte distribution width (RBC) [Ratio] 15.9 % High 11.5-15.0 [facility] Comment on above: Order Comment: Speci men Type: BLOOD SPECIMENOrdering Facility: [facility] Address: [address] [place] [address] Performed By: #### 5 7021-8 ####[facility] LABCLIA [id number] [place] [address] Hematocrit (Bld) [Volume fraction] 40.6 % Normal 39.0-51.0 [facility] Comment on above: Order Comment: Speci men Type: BLOOD SPECIMENOrdering Facility: [facility] Address: [address] [place] [address] Performed By: #### 5 7021-8 ####[facility] LABCLIA [id number] [place] [address] Hemoglobin (Bld) [Mass/Vol] 13.6 g/dL Normal 13.0-17.0 [facility] Comment on above: Order Comment: Speci men Type: BLOOD SPECIMENOrdering Facility: [facility] Address: [address] [place] [address] Performed By: #### 5 7021-8 ####[facility] LABCLIA [id number] [place] [address] Immature granulocytes (Bld) [#/Vol] 0.03 10*3/uL Normal <0.10 [facility] Comment on above: Order Comment: Speci men Type: BLOOD SPECIMENOrdering Facility: [facility] Address: [address] [place] [address] Performed By: #### 5 7021-8 ####[facility] LABCLIA [id number] [place] [address] Immature granulocytes/100 WBC (Bld) 0.5 % Normal [facility] Comment on above: Order Comment: Speci men Type: BLOOD SPECIMENOrdering Facility: [facility] Address: [address] [place] [address] Performed By: #### 5 7021-8 ####[facility] LABCLIA [id number] [place] [address] Lymphocytes (Bld) [#/Vol] 1.04 10*3/uL Normal 1.00-4.00 [facility] Comment on above: Order Comment: Speci men Type: BLOOD SPECIMENOrdering Facility: [facility] Address: [address] [place] [address] Performed By: #### 5 7021-8 ####[facility] LABCLIA [id number] [place] [address] Lymphocytes/100 WBC (Bld) 18.6 % Normal [facility] Comment on above: Order Comment: Speci men Type: BLOOD SPECIMENOrdering Facility: [facility] Address: [address] [place] [address] Performed By: #### 5 7021-8 ####[facility] LABCLIA [id number] [place] [address] MCH (RBC) [Entitic mass] 30.4 pg Normal 26.0-34.0 [facility] Comment on above: Order Comment: Speci men Type: BLOOD SPECIMENOrdering Facility: [facility] Address: [address] [place] [address] Performed By: #### 5 7021-8 ####[facility] LABCLIA [id number] [place] [address] MCHC (RBC) [Mass/Vol] 33.5 g/dL Normal 30.5-36.0 [facility] Comment on above: Order Comment: Speci men Type: BLOOD SPECIMENOrdering Facility: [facility] Address: [address] [place] [address] Performed By: #### 5 7021-8 ####[facility] LABCLIA [id number] [place] [address] MCV (RBC) [Entitic vol] 90.6 fL Normal 80.0-100.0 [facility] Comment on above: Order Comment: Speci men Type: BLOOD SPECIMENOrdering Facility: [facility] Address: [address] [place] [address] Performed By: #### 5 7021-8 ####[facility] LABCLIA [id number] [place] [address] Monocytes (Bld) [#/Vol] 0.78 10*3/uL Normal <0.87 [facility] Comment on above: Order Comment: Speci men Type: BLOOD SPECIMENOrdering Facility: [facility] Address: [address] [place] [address] Performed By: #### 5 7021-8 ####[facility] LABCLIA [id number] [place] [address] Monocytes/100 WBC (Bld) 13.9 % Normal [facility] Comment on above: Order Comment: Speci men Type: BLOOD SPECIMENOrdering Facility: [facility] Address: [address] [place] [address] Performed By: #### 5 7021-8 ####[facility] LABCLIA [id number] [place] [address] Neutrophils (Bld) [#/Vol] 3.66 10*3/uL Normal 1.45-7.50 [facility] Comment on above: Order Comment: Speci men Type: BLOOD SPECIMENOrdering Facility: [facility] Address: [address] [place] [address] Performed By: #### 5 7021-8 ####[facility] LABCLIA [id number] [place] [address] Neutrophils/100 WBC (Bld) 65.3 % Normal [facility] Comment on above: Order Comment: Speci men Type: BLOOD SPECIMENOrdering Facility: [facility] Address: [address] [place] [address] Performed By: #### 5 7021-8 ####[facility] LABCLIA [id number] [place] [address] Nucleated RBC (Bld) [#/Vol] 10*3/uL Normal <0.01 [facility] Comment on above: Order Comment: Speci men Type: BLOOD SPECIMENOrdering Facility: [facility] Address: [address] [place] [address] Performed By: #### 5 7021-8 ####[facility] LABCLIA [id number] [place] [address] Nucleated RBC/100 WBC (Bld) [Ratio] 0.0 /100 WBC Normal [facility] Comment on above: Order Comment: Speci men Type: BLOOD SPECIMENOrdering Facility: [facility] Address: [address] [place] [address] Performed By: #### 5 7021-8 ####[facility] LABCLIA [id number] [place] [address] Platelet mean volume (Bld) [Entitic vol] 10.7 fL Normal 9.0-12.7 [facility] Comment on above: Order Comment: Speci men Type: BLOOD SPECIMENOrdering Facility: [facility] Address: [address] [place] [address] Performed By: #### 5 7021-8 ####[facility] LABCLIA [id number] [place] [address] Platelets (Bld) [#/Vol] 214 10*3/uL Normal 150-400 [facility] Comment on above: Order Comment: Speci men Type: BLOOD SPECIMENOrdering Facility: [facility] Address: [address] [place] [address] Performed By: #### 5 7021-8 ####[facility] LABCLIA [id number] [place] [address] RBC (Bld) [#/Vol] 4.48 10*6/uL Normal 4.20-6.00 [facility] Comment on above: Order Comment: Speci men Type: BLOOD SPECIMENOrdering Facility: [facility] Address: [address] [place] [address] Performed By: #### 5 7021-8 ####[facility] LABCLIA [id number] [place] [address] WBC (Bld) [#/Vol] 5.60 10*3/uL Normal 3.70-11.00 [facility] Comment on above: Order Comment: Speci men Type: BLOOD SPECIMENOrdering Facility: [facility] Address: [address] [place] [address] Performed By: #### 5 7021-8 ####[facility] LABIA [id number] [place] [address] CNOVSPon 10-20-2023 CNOVSP Normal [facility] Comprehensive metabolic 2000 panelon 10-20-2023 Albumin [Mass/Vol] 4.6 g/dL 3.9 - 4.9 g/dL [facility] ALP [Catalytic activity/Vol] 55 U/L 38 - 113 U/L [facility] ALT [Catalytic activity/Vol] 48 U/L 10 - 54 U/L [facility] Anion gap [Moles/Vol] 15 mmol/L 9 - 18 mmol/L [facility] AST [Catalytic activity/Vol] 30 U/L 14 - 40 U/L [facility] Bilirubin [Mass/Vol] 0.6 mg/dL 0.2 - 1.3 mg/dL [facility] Calcium [Mass/Vol] 10.9 mg/dL High 8.5 - 10.2 mg/dL [facility] Chloride [Moles/Vol] 105 mmol/L 97 - 105 mmol/L [facility] CO2 [Moles/Vol] 26 mmol/L 22 - 30 mmol/L [facility] Creatinine [Mass/Vol] 1.28 mg/dL High 0.73 - 1.22 mg/dL [facility] Estimated Glomerular Filtration Rate 62 mL/min/1.73m >=60 mL/min/1.73m [facility] Glucose [Mass/Vol] 95 mg/dL 74 - 99 mg/dL [facility] Potassium [Moles/Vol] 4.2 mmol/L 3.7 - 5.1 mmol/L [facility] Protein [Mass/Vol] 8.0 g/dL 6.3 - 8.0 g/dL [facility] Sodium [Moles/Vol] 146 mmol/L High 136 - 144 mmol/L [facility] Urea nitrogen [Mass/Vol] 25 mg/dL High 9 - 24 mg/dL [facility] Albumin [Mass/Vol] 4.6 g/dL Normal 3.9-4.9 [facility] Comment on above: Order Comment: Speci men Type: BLOOD SPECIMENOrdering Facility: [facility] Address: [address] [place] [address] Performed By: #### 2 4323-8 ####[facility] LABCLIA [id number] [place] [address] ALP [Catalytic activity/Vol] 55 U/L Normal 38-113 [facility] Comment on above: Order Comment: Speci men Type: BLOOD SPECIMENOrdering Facility: [facility] Address: [address] [place] [address] Performed By: #### 2 4323-8 ####[facility] LABCLIA [id number] [place] [address] ALT [Catalytic activity/Vol] 48 U/L Normal 10-54 [facility] Comment on above: Order Comment: Speci men Type: BLOOD SPECIMENOrdering Facility: [facility] Address: [address] [place] [address] Performed By: #### 2 4323-8 ####[facility] LABCLIA [id number] [place] [address] Anion gap [Moles/Vol] 15 mmol/L Normal 9-18 [facility] Comment on above: Order Comment: Speci men Type: BLOOD SPECIMENOrdering Facility: [facility] Address: [address] [place] [address] Performed By: #### 2 4323-8 ####[facility] LABCLIA [id number] [place] [address] AST [Catalytic activity/Vol] 30 U/L Normal 14-40 [facility] Comment on above: Order Comment: Speci men Type: BLOOD SPECIMENOrdering Facility: [facility] Address: [address] [place] [address] Performed By: #### 2 4323-8 ####[facility] LABCLIA [id number] [place] [address] Bilirubin [Mass/Vol] 0.6 mg/dL Normal 0.2-1.3 [facility] Comment on above: Order Comment: Speci men Type: BLOOD SPECIMENOrdering Facility: [facility] Address: [address] [place] [address] Performed By: #### 2 4323-8 ####[facility] LABCLIA [id number] [place] [address] Calcium [Mass/Vol] 10.9 mg/dL High 8.5-10.2 [facility] Comment on above: Order Comment: Speci men Type: BLOOD SPECIMENOrdering Facility: [facility] Address: [address] [place] [address] Result Comment: RECH ECKED JT Performed By: #### 2 4323-8 ####[facility] LABCLIA [id number] [place] [address] Chloride [Moles/Vol] 105 mmol/L Normal 97-105 [facility] Comment on above: Order Comment: Speci men Type: BLOOD SPECIMENOrdering Facility: [facility] Address: [address] [place] [address] Performed By: #### 2 4323-8 ####[facility] LABCLIA [id number] [place] [address] CO2 [Moles/Vol] 26 mmol/L Normal 22-30 [facility] Comment on above: Order Comment: Speci men Type: BLOOD SPECIMENOrdering Facility: [facility] Address: [address] [place] [address] Performed By: #### 2 4323-8 ####[facility] LABCLIA [id number] [place] [address] Creatinine [Mass/Vol] 1.28 mg/dL High 0.73-1.22 [facility] Comment on above: Order Comment: Speci men Type: BLOOD SPECIMENOrdering Facility: [facility] Address: [address] [place] [address] Performed By: #### 2 4323-8 ####[facility] LABCLIA [id number] [place] [address] Creatinine and Glomerular filtration rate.predicted panel (S/P/Bld) 62 mL/min/1.73m??? Normal >=60 [facility] Comment on above: Order Comment: Speci men Type: BLOOD SPECIMENOrdering Facility: [facility] Address: [address] [place] [address] Result Comment: Landy mated Glomerular Filtration Rate [...] actual GFR. Performed By: #### 2 4323-8 ####[facility] LABCLIA [id number] [place] [address] Glucose [Mass/Vol] 95 mg/dL Normal 74-99 [facility] Comment on above: Order Comment: Speci men Type: BLOOD SPECIMENOrdering Facility: [facility] Address: [address] [place] [address] Result Comment: The [employer] Association (ADA) provides guidance for cutoff [...] Standards of Medical Care in Diabetes 2016, [employer]. Diabetes Care. 2016.39(Suppl 1). Performed By: #### 2 4323-8 ####[facility] LABCLIA [id number] [place] [address] Potassium [Moles/Vol] 4.2 mmol/L Normal 3.7-5.1 [facility] Comment on above: Order Comment: Speci men Type: BLOOD SPECIMENOrdering Facility: [facility] Address: [address] [place] [address] Performed By: #### 2 4323-8 ####[facility] LABCLIA [id number] [place] [address] Protein [Mass/Vol] 8.0 g/dL Normal 6.3-8.0 [facility] Comment on above: Order Comment: Speci men Type: BLOOD SPECIMENOrdering Facility: [facility] Address: [address] [place] [address] Performed By: #### 2 4323-8 ####[facility] LABCLIA [id number] [place] [address] Sodium [Moles/Vol] 146 mmol/L High 136-144 [facility] Comment on above: Order Comment: Speci men Type: BLOOD SPECIMENOrdering Facility: [facility] Address: [address] [place] [address] Performed By: #### 2 4323-8 ####[facility] LABCLIA [id number] [place] [address] Urea nitrogen [Mass/Vol] 25 mg/dL High 9-24 [facility] Comment on above: Order Comment: Speci men Type: BLOOD SPECIMENOrdering Facility: [facility] Address: [address] [place], [place] [address] Performed By: #### 2 4323-8 ####[facility] LABCLIA [id number] [place] [id number] TSH BLDon 10-20-2023 TSH Qn 4.200 m[IU]/L 0.270 - 4.200 mIU/L [facility] TSH SerPl-aCncon 10-20-2023 TSH Qn 4.200 m[IU]/L Normal 0.270-4.200 [facility] Comment on above: Order Comment: Speci men Type: BLOOD SPECIMENOrdering Facility: [facility] Address: [address] [place], [place] [address] Performed By: #### 3 016-3 ####[facility] LABCLIA [id number] [facility] [address] [address] [place] Ambulatory Visit Summaryon 0 10-15-2023 Ambulatory Visit Summary CRISTAL GU :1955 Visit Date:10/15/2023 Ambulatory Visit Instructions Your Diagnosis Pharyngitis Fluid level behind tympanic membrane of both ears BMI 20.0-20.9, adult Former smoker Your Care Team Attending Physician - Enrique Austin Primary Care Physician - Enrique Autsin This Is Your Medications List alprazolam (alprazolam [...] 11:20 AM EDT With: Enrique Austin Where: [place] [address] [place] [address]- \.br\ Medications\.br\ What How Much When Instructions\.br\ Unchanged alprazolam (alprazolam 0.25 mg Tab) 1 Tablets By Mouth 3 times a day as needed for for anxiety\.br\ Unchanged amoxicillin (amoxicillin 875 mg Tab) 1 Tablets By Mouth 2 times a day Duration: 10 Days Pickup at [facility]\.br\ Unchanged atorvastatin (atorvastatin 40 mg Tab) [...] 90 tab(s), 0 Refill(s) \.br\ Pharmacy Information\.br\ [facility]: [address] [place] [id number] [phone]\.br\ Medications and Immunizations Administered\.br\ Given\.br\ triamcinolone acetonide [...] [facility] 10-15-2023 Consent [id number] #1.00TIFF Normal [facility] Family Medicine Office/Clini c Noteon 10-15-2023 Family Medicine Office/Clinic Note HPI Staff Cristal [...] anxiety, # 30 tab(s), Refills(s) 0, Pharmacy: [facility], 169.6, cm, 03/17/23 10:54:00 EDT, Height/Length Dosing, 62, kg, 03/17/23 10:54:00 EDT, Weight Dosing amoxicillin, 875 mg = 1 tab(s), Oral, BID, X 10 day(s), # 20 tab(s), Refills(s) 0, Pharmacy: [facility], 169.5, cm, 10/15/23 11:53:00 EDT, Height/Length [...] (COVID-19) mRNA-1273 vaccine 11/15/2020 Recorded Normal [facility] Comment on above: Result Comment: Elec tronically [...] 11:20 AM EDT With: Enrique Austin Where: [place] [id number]- \.br\ Medications\.br\ What How Much When Instructions\.br\ Unchanged alprazolam (alprazolam 0.25 mg Tab) 1 Tablets By Mouth 3 times a day as needed for for anxiety Pickup at [facility]\.br\ Unchanged alprazolam (alprazolam 0.25 mg Tab) [...] 90 tab(s), 0 Refill(s) \.br\ Pharmacy Information\.br\ [facility]: [address] [place] [id number] [phone]\.br\ Allergies\.br\ No Known Allergies\.br\ Problems\.br\ Ongoing - [...] choosing us for your care.\.br\ \.br\ [facility] Family Medicine Office/Clini c Noteon 10-08-2023 Family [...] days., # 45 tab(s), Refills(s) 0, Pharmacy: [facility], 169.5, cm, 09/02/23 11:42:00 EST, Height/Anuj... Orders: alprazolam, 0.25 mg = 1 tab(s), Oral, TID, PRN for anxiety, # 90 tab(s), Refills(s) 0, Pharmacy: [facility], 169.5, cm, 10/08/23 9:02:00 EDT, Height/Length [...] 09:14 EDT Medication Consenton 024 Medication Consent [id number] #1.00TIFF Normal [facility] CBC W Auto Differential pane l (Bld)on 09-22-2023 Basophils (Bld) [#/Vol] 0.03 10*3/uL <0.11 k/uL [facility] Basophils/100 WBC (Bld) 0.7 % [facility] Differential cell count method Nom (Bld) Auto [facility] Eosinophils (Bld) [#/Vol] 0.05 10*3/uL <0.46 k/uL [facility] Eosinophils/100 WBC (Bld) 1.2 % [facility] Erythrocyte distribution width (RBC) [Ratio] 17.0 % High 11.5 - 15.0 % [facility] Hematocrit (Bld) [Volume fraction] 40.7 % 39.0 - 51.0 % [facility] Hemoglobin (Bld) [Mass/Vol] 13.5 g/dL 13.0 - 17.0 g/dL [facility] Immature granulocytes (Bld) [#/Vol] 0.03 10*3/uL <0.10 k/uL [facility] Immature granulocytes/100 WBC (Bld) 0.7 % [facility] Lymphocytes (Bld) [#/Vol] 0.87 10*3/uL Low 1.00 - 4.00 k/uL [facility] Lymphocytes/100 WBC (Bld) 21.6 % [facility] MCH (RBC) [Entitic mass] 30.2 pg 26.0 - 34.0 pg [facility] MCHC (RBC) [Mass/Vol] 33.2 g/dL 30.5 - 36.0 g/dL [facility] MCV (RBC) [Entitic vol] 91.1 fL 80.0 - 100.0 fL [facility] Monocytes (Bld) [#/Vol] 0.73 10*3/uL <0.87 k/uL [facility] Monocytes/100 WBC (Bld) 18.1 % [facility] Neutrophils (Bld) [#/Vol] 2.32 10*3/uL 1.45 - 7.50 k/uL [facility] Neutrophils/100 WBC (Bld) 57.7 % [facility] Nucleated RBC (Bld) [#/Vol] <0.01 k/uL [facility] Nucleated RBC/100 WBC (Bld) [Ratio] 0.0 /100 WBC [facility] Platelet mean volume (Bld) [Entitic vol] 11.0 fL 9.0 - 12.7 fL [facility] Platelets (Bld) [#/Vol] 180 10*3/uL 150 - 400 k/uL [facility] RBC (Bld) [#/Vol] 4.47 10*6/uL 4.20 - 6.00 m/uL [facility] WBC (Bld) [#/Vol] 4.03 10*3/uL 3.70 - 11.00 k/u L [facility] Basophils (Bld) [#/Vol] 0.03 10*3/uL Normal <0.11 [facility] Comment on above: Order Comment: Speci men Type: BLOOD SPECIMENOrdering Facility: [facility] Address: [address] [place] [address] Performed By: #### 5 7021-8 ####[facility] LABCLIA [id number] [place] [address] Basophils/100 WBC (Bld) 0.7 % Normal [facility] Comment on above: Order Comment: Speci men Type: BLOOD SPECIMENOrdering Facility: [facility] Address: [address] [place] [address] Performed By: #### 5 7021-8 ####[facility] LABCLIA [id number] [place] [address] Differential cell count method Nom (Bld) Auto Normal [facility] Comment on above: Order Comment: Speci men Type: BLOOD SPECIMENOrdering Facility: [facility] Address: [address] [place] [address] Performed By: #### 5 7021-8 ####[facility] LABCLIA [id number] [place] [address] Eosinophils (Bld) [#/Vol] 0.05 10*3/uL Normal <0.46 [facility] Comment on above: Order Comment: Speci men Type: BLOOD SPECIMENOrdering Facility: [facility] Address: [address] [place] [address] Performed By: #### 5 7021-8 ####[facility] LABCLIA [id number] [place] [address] Eosinophils/100 WBC (Bld) 1.2 % Normal [facility] Comment on above: Order Comment: Speci men Type: BLOOD SPECIMENOrdering Facility: [facility] Address: [address] [place] [address] Performed By: #### 5 7021-8 ####[facility] LABCLIA [id number] [place] [address] Erythrocyte distribution width (RBC) [Ratio] 17.0 % High 11.5-15.0 [facility] Comment on above: Order Comment: Speci men Type: BLOOD SPECIMENOrdering Facility: [facility] Address: [address] [place] [address] Performed By: #### 5 7021-8 ####[facility] LABCLIA [id number] [place] [address] Hematocrit (Bld) [Volume fraction] 40.7 % Normal 39.0-51.0 [facility] Comment on above: Order Comment: Speci men Type: BLOOD SPECIMENOrdering Facility: [facility] Address: [address] [place] [address] Performed By: #### 5 7021-8 ####[facility] LABCLIA [id number] [place] [address] Hemoglobin (Bld) [Mass/Vol] 13.5 g/dL Normal 13.0-17.0 [facility] Comment on above: Order Comment: Speci men Type: BLOOD SPECIMENOrdering Facility: [facility] Address: [address] [place] [address] Performed By: #### [id number] 7021-8 ####[facility] LABCLIA [id number] [place] [address] Immature granulocytes (Bld) [#/Vol] 0.03 10*3/uL Normal <0.10 [facility] Comment on above: Order Comment: Speci men Type: BLOOD SPECIMENOrdering Facility: [facility] Address: [address] [place] [address] Performed By: #### 5 7021-8 ####[facility] LABCLIA [id number] [place] [address] Immature granulocytes/100 WBC (Bld) 0.7 % Normal [facility] Comment on above: Order Comment: Speci men Type: BLOOD SPECIMENOrdering Facility: [facility] Address: [address] [place] [address] Performed By: #### 5 7021-8 ####[facility] LABCLIA [id number] [place] [address] Lymphocytes (Bld) [#/Vol] 0.87 10*3/uL Low 1.00-4.00 [facility] Comment on above: Order Comment: Speci men Type: BLOOD SPECIMENOrdering Facility: [facility] Address: [address] [place] [address] Performed By: #### 5 7021-8 ####[facility] LABCLIA [id number] [place] [address] Lymphocytes/100 WBC (Bld) 21.6 % Normal [facility] Comment on above: Order Comment: Speci men Type: BLOOD SPECIMENOrdering Facility: [facility] Address: [address] [place] [address] Performed By: #### 5 7021-8 ####[facility] LABCLIA [id number] [place] [address] MCH (RBC) [Entitic mass] 30.2 pg Normal 26.0-34.0 [facility] Comment on above: Order Comment: Speci men Type: BLOOD SPECIMENOrdering Facility: [facility] Address: [address] [place] [address] Performed By: #### 5 7021-8 ####[facility] LABCLIA [id number] [place] [address] MCHC (RBC) [Mass/Vol] 33.2 g/dL Normal 30.5-36.0 [facility] Comment on above: Order Comment: Speci men Type: BLOOD SPECIMENOrdering Facility: [facility] Address: [address] [place] [address] Performed By: #### 5 7021-8 ####[facility] LABIA [id number] [place] [address] MCV (RBC) [Entitic vol] 91.1 fL Normal 80.0-100.0 [facility] Comment on above: Order Comment: Speci men Type: BLOOD SPECIMENOrdering Facility: [facility] Address: [address] [place] [address] Performed By: #### 5 7021-8 ####[facility] LABCLIA [id number] [place] [address] Monocytes (Bld) [#/Vol] 0.73 10*3/uL Normal <0.87 [facility] Comment on above: Order Comment: Speci men Type: BLOOD SPECIMENOrdering Facility: [facility] Address: [address] [place] [address] Performed By: #### 5 7021-8 ####[facility] LABCLIA [id number] [place] [address] Monocytes/100 WBC (Bld) 18.1 % Normal [facility] Comment on above: Order Comment: Speci men Type: BLOOD SPECIMENOrdering Facility: [facility] Address: [address] [place] [address] Performed By: #### 5 7021-8 ####[facility] LABCLIA [id number] [place] [address] Neutrophils (Bld) [#/Vol] 2.32 10*3/uL Normal 1.45-7.50 [facility] Comment on above: Order Comment: Speci men Type: BLOOD SPECIMENOrdering Facility: [facility] Address: [address] [place] [address] Performed By: #### 5 7021-8 ####[facility] LABCLIA [id number] [place] [address] Neutrophils/100 WBC (Bld) 57.7 % Normal [facility] Comment on above: Order Comment: Speci men Type: BLOOD SPECIMENOrdering Facility: [facility] Address: [address] [place] [address] Performed By: #### 5 7021-8 ####[facility] LABCLIA [id number] [place] [address] Nucleated RBC (Bld) [#/Vol] 10*3/uL Normal <0.01 [facility] Comment on above: Order Comment: Speci men Type: BLOOD SPECIMENOrdering Facility: [facility] Address: [address] [place] [address] Performed By: #### 5 7021-8 ####[facility] LABCLIA [id number] [place] [address] Nucleated RBC/100 WBC (Bld) [Ratio] 0.0 /100 WBC Normal [facility] Comment on above: Order Comment: Speci men Type: BLOOD SPECIMENOrdering Facility: [facility] Address: [address] [place] [address] Performed By: #### 5 7021-8 ####[facility] LABCLIA [id number] [place] [address] Platelet mean volume (Bld) [Entitic vol] 11.0 fL Normal 9.0-12.7 [facility] Comment on above: Order Comment: Speci men Type: BLOOD SPECIMENOrdering Facility: [facility] Address: [address] [place] [address] Performed By: #### 5 7021-8 ####[facility] LABCLIA [id number] [place] [address] Platelets (Bld) [#/Vol] 180 10*3/uL Normal 150-400 [facility] Comment on above: Order Comment: Speci men Type: BLOOD SPECIMENOrdering Facility: [facility] Address: [address] [place] [address] Performed By: #### 5 7021-8 ####[facility] LABCLIA [id number] [place] [address] RBC (Bld) [#/Vol] 4.47 10*6/uL Normal 4.20-6.00 [facility] Comment on above: Order Comment: Speci men Type: BLOOD SPECIMENOrdering Facility: [facility] Address: [address] [place] [address] Performed By: #### 5 7021-8 ####[facility] LABCLIA [id number] [place] [address] WBC (Bld) [#/Vol] 4.03 10*3/uL Normal 3.70-11.00 [facility] Comment on above: Order Comment: Speci men Type: BLOOD SPECIMENOrdering Facility: [facility] Address: [address] [place] [address] Performed By: #### 5 7021-8 ####[facility] LABCLIA [id number] [place] [address] CNCNPATEDon 09-22-2023 CNCNPATED Normal [facility] CNOVSPon 09-22-2023 CNOVSP Normal [facility] Comprehensive metabolic 2000 panelon 09-22-2023 Albumin [Mass/Vol] 4.4 g/dL 3.9 - 4.9 g/dL [facility] ALP [Catalytic activity/Vol] 47 U/L 38 - 113 U/L [facility] ALT [Catalytic activity/Vol] 19 U/L 10 - 54 U/L [facility] Anion gap [Moles/Vol] 15 mmol/L 9 - 18 mmol/L [facility] AST [Catalytic activity/Vol] 24 U/L 14 - 40 U/L [facility] Bilirubin [Mass/Vol] 0.4 mg/dL 0.2 - 1.3 mg/dL [facility] Calcium [Mass/Vol] 10.1 mg/dL 8.5 - 10.2 mg/dL [facility] Chloride [Moles/Vol] 100 mmol/L 97 - 105 mmol/L [facility] CO2 [Moles/Vol] 25 mmol/L 22 - 30 mmol/L [facility] Creatinine [Mass/Vol] 1.38 mg/dL High 0.73 - 1.22 mg/dL [facility] Estimated Glomerular Filtration Rate 56 mL/min/1.73m Low >=60 mL/min/1.73m [facility] Glucose [Mass/Vol] 107 mg/dL High 74 - 99 mg/dL [facility] Potassium [Moles/Vol] 4.3 mmol/L 3.7 - 5.1 mmol/L [facility] Protein [Mass/Vol] 7.6 g/dL 6.3 - 8.0 g/dL [facility] Sodium [Moles/Vol] 140 mmol/L 136 - 144 mmol/L [facility] Urea nitrogen [Mass/Vol] 30 mg/dL High 9 - 24 mg/dL [facility] Albumin [Mass/Vol] 4.4 g/dL Normal 3.9-4.9 [facility] Comment on above: Order Comment: Speci men Type: BLOOD SPECIMENOrdering Facility: [facility] Address: [address] [place] [address] Performed By: #### 2 4323-8 ####[facility] LABCLIA [id number] [place] [address] ALP [Catalytic activity/Vol] 47 U/L Normal 38-113 [facility] Comment on above: Order Comment: Speci men Type: BLOOD SPECIMENOrdering Facility: [facility] Address: [address] [place] [address] Performed By: #### 2 4323-8 ####[facility] LABCLIA [id number] [place] [address] ALT [Catalytic activity/Vol] 19 U/L Normal 10-54 [facility] Comment on above: Order Comment: Speci men Type: BLOOD SPECIMENOrdering Facility: [facility] Address: [address] [place] [address] Performed By: #### 2 4323-8 ####[facility] LABCLIA [id number] [place] [address] Anion gap [Moles/Vol] 15 mmol/L Normal 9-18 [facility] Comment on above: Order Comment: Speci men Type: BLOOD SPECIMENOrdering Facility: [facility] Address: [address] [place] [address] Performed By: #### 2 4323-8 ####[facility] LABCLIA [id number] [place] [address] AST [Catalytic activity/Vol] 24 U/L Normal 14-40 [facility] Comment on above: Order Comment: Speci men Type: BLOOD SPECIMENOrdering Facility: [facility] Address: [address] [place] [address] Performed By: #### 2 4323-8 ####[facility] LABCLIA [id number] [place] [address] Bilirubin [Mass/Vol] 0.4 mg/dL Normal 0.2-1.3 [facility] Comment on above: Order Comment: Speci men Type: BLOOD SPECIMENOrdering Facility: [facility] Address: [address] [place] [address] Performed By: #### 2 4323-8 ####[facility] LABCLIA [id number] [place] [address] Calcium [Mass/Vol] 10.1 mg/dL Normal 8.5-10.2 [facility] Comment on above: Order Comment: Speci men Type: BLOOD SPECIMENOrdering Facility: [facility] Address: [address] [place] [address] Performed By: #### 2 4323-8 ####[facility] LABCLIA [id number] [place] [address] Chloride [Moles/Vol] 100 mmol/L Normal 97-105 [facility] Comment on above: Order Comment: Speci men Type: BLOOD SPECIMENOrdering Facility: [facility] Address: [address] [place] [address] Performed By: #### 2 4323-8 ####[facility] LABCLIA [id number] [place] [address] CO2 [Moles/Vol] 25 mmol/L Normal 22-30 [facility] Comment on above: Order Comment: Speci men Type: BLOOD SPECIMENOrdering Facility: [facility] Address: [address] [place] [address] Performed By: #### 2 4323-8 ####[facility] LABCLIA [id number] [place] [address] Creatinine [Mass/Vol] 1.38 mg/dL High 0.73-1.22 [facility] Comment on above: Order Comment: Ajay rausch Type: BLOOD SPECIMENOrdering Facility: [facility] Address: [address] [place] [address] Performed By: #### 2 4323-8 ####[facility] LABIA [id number] [place] [address] Creatinine and Glomerular filtration rate.predicted panel (S/P/Bld) 56 mL/min/1.73m??? Low >=60 [facility] Comment on above: Order Comment: Ajay rausch Type: BLOOD SPECIMENOrdering Facility: [facility] Address: [address] [place] [address] Result Comment: Landy mated Glomerular Filtration Rate [...] actual GFR. Performed By: #### 2 4323-8 ####[facility] LABIA [id number] [place] [address] Glucose [Mass/Vol] 107 mg/dL High 74-99 [facility] Comment on above: Order Comment: Ajay rausch Type: BLOOD SPECIMENOrdering Facility: [facility] Address: [address] [place], [place] [id number] Result Comment: The [employer] Association (ADA) provides guidance for cutoff [...] Standards of Medical Care in Diabetes 2016, [employer]. Diabetes Care. 2016.39(Suppl 1). Performed By: #### 2 4323-8 ####[facility] LABCLIA [id number] [place] [address] Potassium [Moles/Vol] 4.3 mmol/L Normal 3.7-5.1 [facility] Comment on above: Order Comment: Speci men Type: BLOOD SPECIMENOrdering Facility: [facility] Address: [address] [place] [address] Performed By: #### 2 4323-8 ####[facility] LABIA [id number] [place] [address] Protein [Mass/Vol] 7.6 g/dL Normal 6.3-8.0 [facility] Comment on above: Order Comment: Speci men Type: BLOOD SPECIMENOrdering Facility: [facility] Address: [address] [place] [address] Performed By: #### 2 4323-8 ####[facility] LABCLIA [id number] [place] [address] Sodium [Moles/Vol] 140 mmol/L Normal 136-144 [facility] Comment on above: Order Comment: Speci men Type: BLOOD SPECIMENOrdering Facility: [facility] Address: [address] [place] [address] Performed By: #### 2 4323-8 ####[facility] LABCLIA [id number] [place] [address] Urea nitrogen [Mass/Vol] 30 mg/dL High 9-24 [facility] Comment on above: Order Comment: Speci men Type: BLOOD SPECIMENOrdering Facility: [facility] Address: [address] [place] [address] Performed By: #### 2 4323-8 ####[facility] LABCLIA [id number] [place] [address] T4/FTI/T4Uon 09-22-2023 FTI 7.1 ug/dL 5.3 - 10.8 ug/dL [facility] T4 [Mass/Vol] 6.1 ug/dL 5.5 - 10.2 ug/dL [facility] T4 uptake [Mass/Vol] 0.86 Low 0.91 - 1.19 [facility] FTI 7.1 ug/dL Normal 5.3-10.8 [facility] Comment on above: Order Comment: Speci men Type: BLOOD SPECIMENOrdering Facility: [facility] Address: [address] [place] [address] Performed By: #### 3 016-3, T4FTI ####[facility] LABCLIA [id number] [place] [address] [place] T4 [Mass/Vol] 6.1 ug/dL Normal 5.5-10.2 [facility] Comment on above: Order Comment: Speci men Type: BLOOD SPECIMENOrdering Facility: [facility] Address: [address] [place] [address] Performed By: #### 3 016-3, T4FTI ####[facility] LABIA [id number] [place] [address] [place] T4 uptake [Mass/Vol] 0.86 Low 0.91-1.19 [facility] Comment on above: Order Comment: Speci men Type: BLOOD SPECIMENOrdering Facility: [facility] Address: [address] [place] [address] Performed By: #### 3 016-3, T4FTI ####[facility] LABCLIA [id number] [place] [address] [place] TSH BLDon 09-22-2023 TSH Qn 14.500 m[IU]/L High 0.270 - 4.200 mIU/L [facility] TSH SerPl-aCncon 09-22-2023 TSH Qn 14.500 m[IU]/L High 0.270-4.200 [facility] Comment on above: Order Comment: Speci men Type: BLOOD SPECIMENOrdering Facility: [facility] Address: [address] [place] [address] Performed By: #### 3 016-3, T4FTI ####[facility] LABCLIA [id number] [address] [id number] [address] [place] NM PET/CT SKULL-THIGH SUBQon 09-15-2023 NM PET/CT SKULL-THIGH SUBQ Normal [facility] Physician Referralon 024 Physician Referral [id number] #1.00TIFF Normal [facility] [...] 8:40 AM EDT With: Enrique Austin Where: [facility] [place] Normal [address] [place] [address]- \.br\ Medications\.br\ What How Much When Why Instructions\.br\ New predniSONE (predniSONE 10 mg Tab) 1 Dose Separtor By Mouth As Directed Rash BMI 21.0-21.9, adult Former smoker Take 5 tabs by mouth daily x3 days, 4 daily x3 days, 3 daily x3 days, 2 daily x3 days, then 1 tab daily x3 days. Pickup at [facility]\.br\ Unchanged alprazolam (alprazolam 0.25 mg Tab) [...] 90 tab(s), 0 Refill(s) \.br\ Pharmacy Information\.br\ [facility]: [address] [place], [place] [id number] [phone]\.br\ Allergies\.br\ No Known Allergies\.br\ Problems\.br\ Ongoing - [...] choosing us for your care.\.br\ \.br\ Pranav [facility] Medicine Office/Clini c Noteon 09-02-2023 Family Medicine Office/Clinic Note HPI Staff Cristal [...] spread this week. pt found creams that [employer] ordered for him and applied it last [...] q12hr, # 20 cap(s), Refills(s) 0, Pharmacy: [facility], 169.5, cm, 08/20/23 11:52:00 EST, Height/Length Dosing, 63.1, kg, 08/20/23 11:52:00 EST, Weight Dosing predniSONE, 0 = 1 -, Oral, As Directed, Take 5 tabs by mouth daily x3 days, 4 daily x3 days, 3 daily x3 days, 2 daily x3 days, then 1 tab daily x3 days., # 45 tab(s), Refills(s) 0, Pharmacy: [facility], 169.5, cm, 09/02/23 11:42:00 EST, Height/Anuj... triamcinolone topical, 1 duong, Topical, BID, 20 gram, Refill(s) 0, [facility], 169.5, cm, 08/20/23 11:52:00 EST, Height/Length Dosing, 63.1, kg, 08/20/23 11:52:00 EST, Weight Dosing [facility] [place] [facility]ulatory Referral 2. BMI 21.0-21.9, adult (Z68.21: Body mass index [BMI] 21.0-21.9, adult) BMI education complete Ordered: cephalexin, 500 mg = 1 cap(s), Oral, q12hr, # 20 cap(s), Refills(s) 0, Pharmacy: [facility], 169.5, cm, 08/20/23 11:52:00 EST, Height/Length Dosing, 63.1, kg, 08/20/23 11:52:00 EST, Weight Dosing predniSONE, 0 = 1 -, Oral, As Directed, Take 5 tabs by mouth daily x3 days, 4 daily x3 days, 3 daily x3 days, 2 daily x3 days, then 1 tab daily x3 days., # 45 tab(s), Refills(s) 0, Pharmacy: [facility], 169.5, cm, 09/02/23 11:42:00 EST, Height/Anuj... triamcinolone topical, 1 duong, Topical, BID, 20 gram, Refill(s) 0, [facility], 169.5, cm, 08/20/23 11:52:00 EST, Height/Length Dosing, 63.1, kg, 08/20/23 11:52:00 EST, Weight Dosing [facility] Referral 3. Former smoker (Z87.891: Personal history of nicotine dependence) continue not smoking Ordered: predniSONE, 0 = 1 -, Oral, As Directed, Take 5 tabs by mouth daily x3 days, 4 daily x3 days, 3 daily x3 days, 2 daily x3 days, then 1 tab daily x3 days., # 45 tab(s), Refills(s) 0, Pharmacy: [facility], 169.5, cm, 09/02/23 11:42:00 EST, Height/Anuj... [facility]ulatory Referral Orders: alprazolam, 0.25 mg = 1 tab(s), Oral, TID, PRN for anxiety, # 60 tab(s), Refills(s) 0, Pharmacy: [facility], 169.6, cm, 07/23/23 10:23:00 EST, Height/Length Dosing, 63, kg, 07/23/23 10:23:00 EST, Weight Dosing methylPREDNISolone, = 1 packet(s), Oral, Once, as directed on package labeling, # 21 tab(s), Refills(s) 0, Pharmacy: [facility], 169.6, cm, 07/23/23 10:23:00 EST, Height/Length [...] EST CNPNon 08-26-2023 CNPN Normal [facility] CBC W Auto Differential pane l (Bld)on 08-25-2023 Basophils (Bld) [#/Vol] 0.03 10*3/uL Normal <0.11 [facility] Comment on above: Order Comment: Speci men Type: BLOOD SPECIMENOrdering Facility: [facility] Address: [address] [place] [address] Performed By: #### 5 7021-8 ####[facility] LABCLIA [id number] [place] [address] Basophils/100 WBC (Bld) 0.6 % Normal [facility] Comment on above: Order Comment: Speci men Type: BLOOD SPECIMENOrdering Facility: [facility] Address: [address] [place] [address] Performed By: #### 5 7021-8 ####[facility] LABCLIA [id number] [place] [address] Differential cell count method Nom (Bld) Auto Normal [facility] Comment on above: Order Comment: Speci men Type: BLOOD SPECIMENOrdering Facility: [facility] Address: [address] [place] [address] Performed By: #### 5 7021-8 ####[facility] LABCLIA [id number] [place] [address] Eosinophils (Bld) [#/Vol] 0.16 10*3/uL Normal <0.46 [facility] Comment on above: Order Comment: Speci men Type: BLOOD SPECIMENOrdering Facility: [facility] Address: [address] [place] [address] Performed By: #### 5 7021-8 ####[facility] LABCLIA [id number] [place] [address] Eosinophils/100 WBC (Bld) 3.1 % Normal [facility] Comment on above: Order Comment: Speci men Type: BLOOD SPECIMENOrdering Facility: [facility] Address: [address] [place] [address] Performed By: #### 5 7021-8 ####[facility] LABCLIA [id number] [place] [address] Erythrocyte distribution width (RBC) [Ratio] 14.5 % Normal 11.5-15.0 [facility] Comment on above: Order Comment: Speci men Type: BLOOD SPECIMENOrdering Facility: [facility] Address: [address] [place] [address] Performed By: #### 5 7021-8 ####[facility] LABCLIA [id number] [place] [address] Hematocrit (Bld) [Volume fraction] 39.4 % Normal 39.0-51.0 [facility] Comment on above: Order Comment: Speci men Type: BLOOD SPECIMENOrdering Facility: [facility] Address: [address] [place] [address] Performed By: #### 5 7021-8 ####[facility] LABCLIA [id number] [place] [address] Hemoglobin (Bld) [Mass/Vol] 13.2 g/dL Normal 13.0-17.0 [facility] Comment on above: Order Comment: Speci men Type: BLOOD SPECIMENOrdering Facility: [facility] Address: [address] [place] [address] Performed By: #### 5 7021-8 ####[facility] LABCLIA [id number] [place] [address] Immature granulocytes (Bld) [#/Vol] 0.03 10*3/uL Normal <0.10 [facility] Comment on above: Order Comment: Speci men Type: BLOOD SPECIMENOrdering Facility: [facility] Address: [address] [place] [address] Performed By: #### 5 7021-8 ####[facility] LABCLIA [id number] [place] [address] Immature granulocytes/100 WBC (Bld) 0.6 % Normal [facility] Comment on above: Order Comment: Speci men Type: BLOOD SPECIMENOrdering Facility: [facility] Address: [address] [place] [address] Performed By: #### 5 7021-8 ####[facility] LABCLIA [id number] [place] [address] Lymphocytes (Bld) [#/Vol] 1.08 10*3/uL Normal 1.00-4.00 [facility] Comment on above: Order Comment: Speci men Type: BLOOD SPECIMENOrdering Facility: [facility] Address: [address] [place] [address] Performed By: #### 5 7021-8 ####[facility] LABIA [id number] [place] [address] Lymphocytes/100 WBC (Bld) 20.8 % Normal [facility] Comment on above: Order Comment: Speci men Type: BLOOD SPECIMENOrdering Facility: [facility] Address: [address] [place] [address] Performed By: #### 5 7021-8 ####[facility] LABCLIA [id number] [place] [address] MCH (RBC) [Entitic mass] 30.1 pg Normal 26.0-34.0 [facility] Comment on above: Order Comment: Speci men Type: BLOOD SPECIMENOrdering Facility: [facility] Address: [address] [place] [address] Performed By: #### 5 7021-8 ####[facility] LABIA [id number] [place] [address] MCHC (RBC) [Mass/Vol] 33.5 g/dL Normal 30.5-36.0 [facility] Comment on above: Order Comment: Speci men Type: BLOOD SPECIMENOrdering Facility: [facility] Address: [address] [place] [address] Performed By: #### 5 7021-8 ####[facility] LABIA [id number] [place] [address] MCV (RBC) [Entitic vol] 90.0 fL Normal 80.0-100.0 [facility] Comment on above: Order Comment: Speci men Type: BLOOD SPECIMENOrdering Facility: [facility] Address: [address] [place] [address] Performed By: #### 5 7021-8 ####[facility] [id number] [place] [address] Monocytes (Bld) [#/Vol] 0.58 10*3/uL Normal <0.87 [facility] Comment on above: Order Comment: Speci men Type: BLOOD SPECIMENOrdering Facility: [facility] Address: [address] [place] [address] Performed By: #### 5 7021-8 ####[facility] [id number] [place] [address] Monocytes/100 WBC (Bld) 11.2 % Normal [facility] Comment on above: Order Comment: Speci men Type: BLOOD SPECIMENOrdering Facility: [facility] Address: [address] [place] [address] Performed By: #### 5 7021-8 ####[facility] LABCLIA [id number] [place] [address] Neutrophils (Bld) [#/Vol] 3.31 10*3/uL Normal 1.45-7.50 [facility] Comment on above: Order Comment: Speci men Type: BLOOD SPECIMENOrdering Facility: [facility] Address: [address] [place] [address] Performed By: #### 5 7021-8 ####[facility] LABCLIA [id number] [place] [address] Neutrophils/100 WBC (Bld) 63.7 % Normal [facility] Comment on above: Order Comment: Speci men Type: BLOOD SPECIMENOrdering Facility: [facility] Address: [address] [place] [address] Performed By: #### 5 7021-8 ####[facility] LABCLIA [id number] [place] [address] Nucleated RBC (Bld) [#/Vol] 10*3/uL Normal <0.01 [facility] Comment on above: Order Comment: Speci men Type: BLOOD SPECIMENOrdering Facility: [facility] Address: [address] [place] [address] Performed By: #### 5 7021-8 ####[facility] LABCLIA [id number] [place] [address] Nucleated RBC/100 WBC (Bld) [Ratio] 0.0 /100 WBC Normal [facility] Comment on above: Order Comment: Speci men Type: BLOOD SPECIMENOrdering Facility: [facility] Address: [address] [place] [address] Performed By: #### 5 7021-8 ####[facility] LABCLIA [id number] [place] [address] Platelet mean volume (Bld) [Entitic vol] 11.2 fL Normal 9.0-12.7 [facility] Comment on above: Order Comment: Speci men Type: BLOOD SPECIMENOrdering Facility: [facility] Address: [address] [place] [address] Performed By: #### 5 7021-8 ####[facility] LABCLIA [id number] [place] [address] Platelets (Bld) [#/Vol] 206 10*3/uL Normal 150-400 [facility] Comment on above: Order Comment: Speci men Type: BLOOD SPECIMENOrdering Facility: [facility] Address: [address] [place] [address] Performed By: #### 5 7021-8 ####[facility] LABCLIA [id number] [place] [address] RBC (Bld) [#/Vol] 4.38 10*6/uL Normal 4.20-6.00 [facility] Comment on above: Order Comment: Speci men Type: BLOOD SPECIMENOrdering Facility: [facility] Address: [address] [place] [address] Performed By: #### 5 7021-8 ####[facility] LABCLIA [id number] [place] [address] WBC (Bld) [#/Vol] 5.19 10*3/uL Normal 3.70-11.00 [facility] Comment on above: Order Comment: Speci men Type: BLOOD SPECIMENOrdering Facility: [facility] Address: [address] [place] [address] Performed By: #### 5 7021-8 ####[facility] LABCLIA [id number] [place] [address] CNOVSPon 08-25-2023 CNOVSP Normal [facility] Comprehensive metabolic 2000 panelon 08-25-2023 Albumin [Mass/Vol] 4.4 g/dL Normal 3.9-4.9 [facility] Comment on above: Order Comment: Speci men Type: BLOOD SPECIMENOrdering Facility: [facility] Address: [address] [place] [address] Performed By: #### 2 4323-8 ####[facility] LABCLIA [id number] [place] [address] ALP [Catalytic activity/Vol] 70 U/L Normal 38-113 [facility] Comment on above: Order Comment: Speci men Type: BLOOD SPECIMENOrdering Facility: [facility] Address: [address] [place] [address] Performed By: #### 2 4323-8 ####[facility] LABCLIA [id number] [place] [address] ALT [Catalytic activity/Vol] 25 U/L Normal 10-54 [facility] Comment on above: Order Comment: Speci men Type: BLOOD SPECIMENOrdering Facility: [facility] Address: [address] [place] [address] Performed By: #### 2 4323-8 ####[facility] LABCLIA [id number] [place] [address] Anion gap [Moles/Vol] 13 mmol/L Normal 9-18 [facility] Comment on above: Order Comment: Speci men Type: BLOOD SPECIMENOrdering Facility: [facility] Address: [address] [place] [address] Performed By: #### 2 4323-8 ####[facility] LABCLIA [id number] [place] [address] AST [Catalytic activity/Vol] 33 U/L Normal 14-40 [facility] Comment on above: Order Comment: Speci men Type: BLOOD SPECIMENOrdering Facility: [facility] Address: [address] [place] [address] Performed By: #### 2 4323-8 ####[facility] LABCLIA [id number] [place] [address] Bilirubin [Mass/Vol] 0.3 mg/dL Normal 0.2-1.3 [facility] Comment on above: Order Comment: Speci men Type: BLOOD SPECIMENOrdering Facility: [facility] Address: [address] [place] [address] Performed By: #### 2 4323-8 ####[facility] LABCLIA [id number] [place] [address] Calcium [Mass/Vol] 10.2 mg/dL Normal 8.5-10.2 [facility] Comment on above: Order Comment: Speci men Type: BLOOD SPECIMENOrdering Facility: [facility] Address: [address] [place] [address] Performed By: #### 2 4323-8 ####[facility] LABCLIA [id number] [place] [address] Chloride [Moles/Vol] 102 mmol/L Normal 97-105 [facility] Comment on above: Order Comment: Speci men Type: BLOOD SPECIMENOrdering Facility: [facility] Address: [address] [place] [address] Performed By: #### 2 4323-8 ####[facility] LABCLIA [id number] [place] [address] CO2 [Moles/Vol] 25 mmol/L Normal 22-30 [facility] Comment on above: Order Comment: Speci men Type: BLOOD SPECIMENOrdering Facility: [facility] Address: [address] [place] [address] Performed By: #### 2 4323-8 ####[facility] LABCLIA [id number] [place] [address] Creatinine [Mass/Vol] 1.19 mg/dL Normal 0.73-1.22 [facility] Comment on above: Order Comment: Speci men Type: BLOOD SPECIMENOrdering Facility: [facility] Address: [address] [place] [address] Performed By: #### 2 4323-8 ####[facility] LABCLIA [id number] [place] [address] Creatinine and Glomerular filtration rate.predicted panel (S/P/Bld) 67 mL/min/1.73m??? Normal >=60 [facility] Comment on above: Order Comment: Speci men Type: BLOOD SPECIMENOrdering Facility: [facility] Address: [address] [place] [address] Result Comment: Landy mated Glomerular Filtration Rate [...] actual GFR. Performed By: #### 2 4323-8 ####[facility] LABCLIA [id number] [place] [address] Glucose [Mass/Vol] 99 mg/dL Normal 74-99 [facility] Comment on above: Order Comment: Speci men Type: BLOOD SPECIMENOrdering Facility: [facility] Address: [address] [place] [address] Result Comment: The [employer] Diabetes Association (ADA) provides guidance for cutoff [...] Standards of Medical Care in Diabetes 2016, [employer]. Diabetes Care. 2016.39(Suppl 1). Performed By: #### 2 4323-8 ####[facility] LABCLIA [id number] [place] [address] Potassium [Moles/Vol] 3.8 mmol/L Normal 3.7-5.1 [facility] Comment on above: Order Comment: Speci men Type: BLOOD SPECIMENOrdering Facility: [facility] Address: [address] [place] [address] Performed By: #### 2 4323-8 ####[facility] LABCLIA [id number] [place] [address] Protein [Mass/Vol] 7.9 g/dL Normal 6.3-8.0 [facility] Comment on above: Order Comment: Ajay men Type: BLOOD SPECIMENOrdering Facility: [facility] Address: [address] [place] [address] Performed By: #### 2 4323-8 ####[facility] LABCLIA [id number] [place] [address] Sodium [Moles/Vol] 140 mmol/L Normal 136-144 [facility] Comment on above: Order Comment: Speci men Type: BLOOD SPECIMENOrdering Facility: [facility] Address: [address] [place] [address] Performed By: #### 2 4323-8 ####[facility] LABCLIA [id number] [place] [address] Urea nitrogen [Mass/Vol] 33 mg/dL High 9-24 [facility] Comment on above: Order Comment: Speci men Type: BLOOD SPECIMENOrdering Facility: [facility] Address: [address] [place] [address] Performed By: #### 2 4323-8 ####[facility] LABCLIA [id number] [place] [id number] T4/FTI/T4Uon 08-25-2023 FTI 2.0 ug/dL Low 5.3-10.8 [facility] Comment on above: Order Comment: Speci men Type: BLOOD SPECIMENOrdering Facility: [facility] Address: [address] [place] [address] Performed By: #### 3 016-3, T4FTI ####[facility] LABCLIA [id number] [place] [address] [place] T4 [Mass/Vol] 2.3 ug/dL Low 5.5-10.2 [facility] Comment on above: Order Comment: Speci men Type: BLOOD SPECIMENOrdering Facility: [facility] Address: [address] [place] [address] Performed By: #### 3 016-3, T4FTI ####[facility] LABCLIA [id number] [place] [id number] [place] T4 uptake [Mass/Vol] 1.14 Normal 0.91-1.19 [facility] Comment on above: Order Comment: Speci men Type: BLOOD SPECIMENOrdering Facility: [facility] Address: [address] [place] [address] Performed By: #### 3 016-3, T4FTI ####[facility] LABCLIA [id number] [place] [id number] [facility] [place] TSH SerPl-aCncon 08-25-2023 TSH Qn 109.000 m[IU]/L High 0.270-4.200 [facility] Comment on above: Order Comment: Speci men Type: BLOOD SPECIMENOrdering Facility: [facility] Address: [address] [place] [address] Performed By: #### 3 016-3, T4FTI ####[facility] LABCLIA [id number] [address] OF [facility] Ambulatory Visit Summaryon 0 08-20-2023 Ambulatory Visit [...] 8:40 AM EDT With: Enrique Austin Where: [facility] [place] Normal [address] [place] [address]- \.br\ Medications\.br\ What How Much When Why Instructions\.br\ New cephalexin (cephalexin 500 mg Cap) 1 Capsules By Mouth Every 12 hours Rash Lung cancer BMI 21.0-21.9, adult Pickup at [facility]\.br\ New sotorasib (Lumakras 320 mg oral tablet) 90 tab(s), 0 Refill(s) \.br\ New triamcinolone topical (triamcinolone Top 0.5% Crm) 1 Application Topical 2 times a day Rash Lung cancer BMI 21.0-21.9, adult Pickup at [facility]\.br\ Unchanged alprazolam (alprazolam 0.25 mg [...] Tablets By Mouth Every day\.br\ Pharmacy Information\.br\ [facility]: [address] [place], [place] [id number] [phone]\.br\ Allergies\.br\ No Known Allergies\.br\ Problems\.br\ Ongoing - [...] [facility] 08-20-2023 Consent [phone] [id number] #1.00TIFF Normal [facility] Office/Clini c Noteon 08-20-2023 Family [...] q12hr, # 20 cap(s), Refills(s) 0, Pharmacy: [facility], 169.5, cm, 08/20/23 11:52:00 EST, Height/Length Dosing, 63.1, kg, 08/20/23 11:52:00 EST, Weight Dosing triamcinolone, 60 mg = 1.5 mL, Injection, IntraARTICULAR, Once, Stop date 08/20/23 12:17:00 EST, Routine, Start date 08/20/23 12:17:00 EST, 08/20/23 12:17:00 EST triamcinolone topical, 1 duong, Topical, BID, 20 gram, Refill(s) 0, [facility], 169.5, cm, 08/20/23 11:52:00 EST, Height/Length Dosing, 63.1, kg, 08/20/23 11:52:00 EST, Weight Dosing 2. Lung cancer (C34.90: Malignant neoplasm of unspecified part of unspecified bronchus or lung) pt still taking oral treatment Ordered: cephalexin, 500 mg = 1 cap(s), Oral, q12hr, # 20 cap(s), Refills(s) 0, Pharmacy: [facility], 169.5, cm, 08/20/23 11:52:00 EST, Height/Length Dosing, 63.1, kg, 08/20/23 11:52:00 EST, Weight Dosing triamcinolone topical, 1 duong, Topical, BID, 20 gram, Refill(s) 0, [facility], 169.5, cm, 08/20/23 11:52:00 EST, Height/Length Dosing, 63.1, kg, 08/20/23 11:52:00 EST, Weight Dosing 3. BMI 21.0-21.9, adult (Z68.21: Body mass index [BMI] 21.0-21.9, adult) BMI education complete Ordered: cephalexin, 500 mg = 1 cap(s), Oral, q12hr, # 20 cap(s), Refills(s) 0, Pharmacy: [facility], 169.5, cm, 08/20/23 11:52:00 EST, Height/Length Dosing, 63.1, kg, 08/20/23 11:52:00 EST, Weight Dosing triamcinolone topical, 1 duong, Topical, BID, 20 gram, Refill(s) 0, [facility], 169.5, cm, 08/20/23 11:52:00 EST, Height/Length [...] EST CNOVon 08-15-2023 CNOV Normal [facility] CNPNon 08-11-2023 CNPN Normal [facility] CNOVon 08-08-2023 CNOV Normal [facility] CBC W Auto Differential pane l (Bld)on 07-28-2023 Basophils (Bld) [#/Vol] 0.03 10*3/uL Normal <0.11 [facility] Comment on above: Order Comment: Speci men Type: BLOOD SPECIMENOrdering Facility: [facility] Address: [address] [place] [address] Performed By: #### 5 7021-8 ####[facility] LABCLIA [id number] [place] [address] Basophils/100 WBC (Bld) 0.4 % Normal [facility] Comment on above: Order Comment: Speci men Type: BLOOD SPECIMENOrdering Facility: [facility] Address: [address] [place] [address] Performed By: #### 5 7021-8 ####[facility] LABCLIA [id number] [place] [address] Differential cell count method Nom (Bld) Auto Normal [facility] Comment on above: Order Comment: Speci men Type: BLOOD SPECIMENOrdering Facility: [facility] Address: [address] [place] [address] Performed By: #### 5 7021-8 ####[facility] LABCLIA [id number] [place] [address] Eosinophils (Bld) [#/Vol] 0.18 10*3/uL Normal <0.46 [facility] Comment on above: Order Comment: Speci men Type: BLOOD SPECIMENOrdering Facility: [facility] Address: [address] [place] [address] Performed By: #### 5 7021-8 ####[facility] LABCLIA [id number] [place] [address] Eosinophils/100 WBC (Bld) 2.6 % Normal [facility] Comment on above: Order Comment: Speci men Type: BLOOD SPECIMENOrdering Facility: [facility] Address: [address] [place] [address] Performed By: #### 5 7021-8 ####[facility] LABCLIA [id number] [place] [address] Erythrocyte distribution width (RBC) [Ratio] 13.2 % Normal 11.5-15.0 [facility] Comment on above: Order Comment: Speci men Type: BLOOD SPECIMENOrdering Facility: [facility] Address: [address] [place] [address] Performed By: #### 5 7021-8 ####[facility] LABCLIA [id number] [place] [address] Hematocrit (Bld) [Volume fraction] 35.5 % Low 39.0-51.0 [facility] Comment on above: Order Comment: Speci men Type: BLOOD SPECIMENOrdering Facility: [facility] Address: [address] [place] [address] Performed By: #### 5 7021-8 ####[facility] LABCLIA [id number] [place] [address] Hemoglobin (Bld) [Mass/Vol] 12.0 g/dL Low 13.0-17.0 [facility] Comment on above: Order Comment: Speci men Type: BLOOD SPECIMENOrdering Facility: [facility] Address: [address] [place] [address] Performed By: #### 5 7021-8 ####[facility] LABCLIA [id number] [place] [address] Immature granulocytes (Bld) [#/Vol] 0.04 10*3/uL Normal <0.10 [facility] Comment on above: Order Comment: Speci men Type: BLOOD SPECIMENOrdering Facility: [facility] Address: [address] [place] [address] Performed By: #### 5 7021-8 ####[facility] LABCLIA [id number] [place] [address] Immature granulocytes/100 WBC (Bld) 0.6 % Normal [facility] Comment on above: Order Comment: Speci men Type: BLOOD SPECIMENOrdering Facility: [facility] Address: [address] [place] [address] Performed By: #### 5 7021-8 ####[facility] LABCLIA [id number] [place] [address] Lymphocytes (Bld) [#/Vol] 1.31 10*3/uL Normal 1.00-4.00 [facility] Comment on above: Order Comment: Speci men Type: BLOOD SPECIMENOrdering Facility: [facility] Address: [address] [place] [address] Performed By: #### 5 7021-8 ####[facility] LABCLIA [id number] [place] [address] Lymphocytes/100 WBC (Bld) 19.2 % Normal [facility] Comment on above: Order Comment: Speci men Type: BLOOD SPECIMENOrdering Facility: [facility] Address: [address] [place] [address] Performed By: #### 5 7021-8 ####[facility] LABCLIA [id number] [place] [address] MCH (RBC) [Entitic mass] 30.4 pg Normal 26.0-34.0 [facility] Comment on above: Order Comment: Speci men Type: BLOOD SPECIMENOrdering Facility: [facility] Address: [address] [place] [address] Performed By: #### 5 7021-8 ####[facility] LABCLIA [id number] [place] [address] MCHC (RBC) [Mass/Vol] 33.8 g/dL Normal 30.5-36.0 [facility] Comment on above: Order Comment: Speci men Type: BLOOD SPECIMENOrdering Facility: [facility] Address: [address] [place] [address] Performed By: #### 5 7021-8 ####[facility] LABCLIA [id number] [place] [address] MCV (RBC) [Entitic vol] 89.9 fL Normal 80.0-100.0 [facility] Comment on above: Order Comment: Speci men Type: BLOOD SPECIMENOrdering Facility: [facility] Address: [address] [place] [address] Performed By: #### 5 7021-8 ####[facility] LABCLIA [id number] [place] [address] Monocytes (Bld) [#/Vol] 0.77 10*3/uL Normal <0.87 [facility] Comment on above: Order Comment: Speci men Type: BLOOD SPECIMENOrdering Facility: [facility] Address: [address] [place] [address] Performed By: #### 5 7021-8 ####[facility] LABCLIA [id number] [place] [address] Monocytes/100 WBC (Bld) 11.3 % Normal [facility] Comment on above: Order Comment: Speci men Type: BLOOD SPECIMENOrdering Facility: [facility] Address: [address] [place] [address] Performed By: #### 5 7021-8 ####[facility] LABCLIA [id number] [place] [address] Neutrophils (Bld) [#/Vol] 4.49 10*3/uL Normal 1.45-7.50 [facility] Comment on above: Order Comment: Speci men Type: BLOOD SPECIMENOrdering Facility: [facility] Address: [address] [place] [address] Performed By: #### 5 7021-8 ####[facility] LABCLIA [id number] [place] [address] Neutrophils/100 WBC (Bld) 65.9 % Normal [facility] Comment on above: Order Comment: Speci men Type: BLOOD SPECIMENOrdering Facility: [facility] Address: [address] [place] [address] Performed By: #### 5 7021-8 ####[facility] LABIA [id number] [place] [address] Nucleated RBC (Bld) [#/Vol] 10*3/uL Normal <0.01 [facility] Comment on above: Order Comment: Speci men Type: BLOOD SPECIMENOrdering Facility: [facility] Address: [address] [place] [address] Performed By: #### 5 7021-8 ####[facility] LABIA [id number] [place] [address] Nucleated RBC/100 WBC (Bld) [Ratio] 0.0 /100 WBC Normal [facility] Comment on above: Order Comment: Speci men Type: BLOOD SPECIMENOrdering Facility: [facility] Address: [address] [place] [address] Performed By: #### 5 7021-8 ####[facility] LABIA [id number] [place] [address] Platelet mean volume (Bld) [Entitic vol] 10.5 fL Normal 9.0-12.7 [facility] Comment on above: Order Comment: Speci men Type: BLOOD SPECIMENOrdering Facility: [facility] Address: [address] [place] [address] Performed By: #### 5 7021-8 ####[facility] LABCLIA [id number] [place] [address] Platelets (Bld) [#/Vol] 265 10*3/uL Normal 150-400 [facility] Comment on above: Order Comment: Speci men Type: BLOOD SPECIMENOrdering Facility: [facility] Address: [address] [place] [address] Performed By: #### 5 7021-8 ####[facility] LABIA [id number] [place] [address] RBC (Bld) [#/Vol] 3.95 10*6/uL Low 4.20-6.00 [facility] Comment on above: Order Comment: Speci men Type: BLOOD SPECIMENOrdering Facility: [facility] Address: [address] [place] [address] Performed By: #### 5 7021-8 ####[facility] LABIA [id number] [place] [address] WBC (Bld) [#/Vol] 6.82 10*3/uL Normal 3.70-11.00 [facility] Comment on above: Order Comment: Speci men Type: BLOOD SPECIMENOrdering Facility: [facility] Address: [address] [place] [address] Performed By: #### 5 7021-8 ####[facility] LABIA [id number] [place] [address] CNOVSPon 07-28-2023 CNOVSP Normal [facility] Ambulatory Visit Summaryon 0 07-23-2023 Ambulatory [...] 9:00 AM EDT With: Enrique Austin Where: [address] \.br\ Medications\.br\ What How Much When Instructions\.br\ [...] choosing us for your care.\.br\ \.br\ [facility] Office/Clini c Noteon 07-23-2023 [facility] Medicine Office/Clinic Note HPI Staff Cristal is [...] Daily, 16 gram, Refill(s) 0, each nostril, [facility], 169.6, cm, 03/17/23 10:54:00 EDT, Height/Length Dosing, 62, kg, 03/17/23 10:54:00 EDT, Weight Dosing 2. Chest congestion (R09.89: Other specified symptoms and signs involving the circulatory and respiratory systems) pt having chest congestion body aches and coughing up yellow phlegm. 3. Anxiety (F41.9: Anxiety disorder, unspecified) meds refilled Ordered: fluticasone nasal, 2 spray(s), Nasal, Daily, 16 gram, Refill(s) 0, each nostril, [facility], 169.6, cm, 03/17/23 10:54:00 EDT, Height/Length Dosing, 62, kg, 03/17/23 10:54:00 EDT, Weight Dosing 4. BMI 21.0-21.9, adult (Z68.21: Body mass index [BMI] 21.0-21.9, adult) BMI education complete Ordered: fluticasone nasal, 2 spray(s), Nasal, Daily, 16 gram, Refill(s) 0, each nostril, [facility], 169.6, cm, 03/17/23 10:54:00 EDT, Height/Length Dosing, 62, kg, 03/17/23 10:54:00 EDT, Weight Dosing 5. Former smoker (Z87.891: Personal history of nicotine dependence) continue not smoking Ordered: fluticasone nasal, 2 spray(s), Nasal, Daily, 16 gram, Refill(s) 0, each nostril, [facility] #[facility], 169.6, cm, 03/17/23 10:54:00 EDT, Height/Length Dosing, 62, kg, 03/17/23 10:54:00 EDT, Weight Dosing Orders: alprazolam, 0.25 mg = 1 tab(s), Oral, TID, PRN for anxiety, # 60 tab(s), Refills(s) 0, Pharmacy: [facility] #[id number], 169.6, cm, 07/23/23 10:23:00 EST, Height/Length Dosing, 63, kg, 07/23/23 10:23:00 EST, Weight Dosing alprazolam, 0.25 mg = 1 tab(s), Oral, TID, PRN for anxiety, # 30 tab(s), Refills(s) 1, Pharmacy: [facility], 169.6, cm, 04/16/23 10:21:00 EDT, Height/Length Dosing, 63.8, kg, 04/16/23 10:30:00 EDT, Weight Dosing azithromycin, = 1 packet(s), Oral, As Directed, as directed on package labeling, X 5 day(s), # 6 tab(s), Refills(s) 0, Pharmacy: [facility], 169.6, cm, 07/23/23 10:23:00 EST, Height/Length Dosing, 63, kg, 07/23/23 10:23:00 EST, Weight Dosing methylPREDNISolone, = 1 packet(s), Oral, Once, as directed on package labeling, # 21 tab(s), Refills(s) 0, Pharmacy: [facility], 169.6, cm, 07/23/23 10:23:00 EST, Height/Length [...] 07/23/23 10:41 EST CNPNon 07-18-2023 CNPN Normal [facility] Medication Consenton 023 Medication Consent [id number] Normal [facility] [...] mg Tab) fluticasone nasal (Flonase 0.05 mg/inh [place]) isosorbide mononitrate (isosorbide mononitrate 30 mg ER [...] 9:00 AM EDT With: Enrique Austin Where: [facility] Normal [address] [place] [address]- \.br\ Medications\.br\ What How Much When Why [...] Unchanged fluticasone nasal (Flonase 0.05 mg/ inh [place]) 2 Sprays Nasal Inhalation Every day Rash [...] choosing us for your care.\.br\ \.br\ [facility] Office/Clini c Noteon 07-09-2023 Family [...] did get something rxed for it at [facility] ( amoxicillin) History of Present [...] 1 tab(s), Oral, Daily Flonase 0.05 mg/inh [place], 2 spray(s), Nasal, Daily, Not taking isosorbide [...] Signed By: Enrique Austin\.miladys\Date and Time Signed: 07/09/23 10:27 EST CBC W Auto Differential pane l (Bld)on 06-30-2023 Basophils (Bld) [#/Vol] 0.03 10*3/uL Normal <0.11 [facility] Comment on above: Order Comment: Speci men Type: BLOOD SPECIMENOrdering Facility: [facility] Address: [address] [place] [address] Performed By: #### 5 7021-8 ####[facility] LABCLIA [id number] [place] [address] Basophils/100 WBC (Bld) 0.5 % Normal [facility] Comment on above: Order Comment: Speci men Type: BLOOD SPECIMENOrdering Facility: [facility] Address: [address] [place] [address] Performed By: #### 5 7021-8 ####[facility] LABCLIA [id number] [place] [address] Differential cell count method Nom (Bld) Auto Normal [facility] Comment on above: Order Comment: Speci men Type: BLOOD SPECIMENOrdering Facility: [facility] Address: [address] [place] [address] Performed By: #### 5 7021-8 ####[facility] LABCLIA [id number] [place] [address] Eosinophils (Bld) [#/Vol] 0.27 10*3/uL Normal <0.46 [facility] Comment on above: Order Comment: Speci men Type: BLOOD SPECIMENOrdering Facility: [facility] Address: [address] [place] [address] Performed By: #### 5 7021-8 ####[facility] LABCLIA [id number] [place] [address] Eosinophils/100 WBC (Bld) 4.5 % Normal [facility] Comment on above: Order Comment: Speci men Type: BLOOD SPECIMENOrdering Facility: [facility] Address: [address] [place] [address] Performed By: #### 5 7021-8 ####[facility] LABCLIA [id number] [place] [address] Erythrocyte distribution width (RBC) [Ratio] 12.7 % Normal 11.5-15.0 [facility] Comment on above: Order Comment: Speci men Type: BLOOD SPECIMENOrdering Facility: [facility] Address: [address] [place] [address] Performed By: #### 5 7021-8 ####[facility] LABCLIA [id number] [place] [address] Hematocrit (Bld) [Volume fraction] 34.6 % Low 39.0-51.0 [facility] Comment on above: Order Comment: Speci men Type: BLOOD SPECIMENOrdering Facility: [facility] Address: [address] [place] [address] Performed By: #### 5 7021-8 ####[facility] LABCLIA [id number] [place] [address] Hemoglobin (Bld) [Mass/Vol] 11.7 g/dL Low 13.0-17.0 [facility] Comment on above: Order Comment: Speci men Type: BLOOD SPECIMENOrdering Facility: [facility] Address: [address] [place] [address] Performed By: #### 5 7021-8 ####[facility] LABCLIA [id number] [place] [address] Immature granulocytes (Bld) [#/Vol] 0.03 10*3/uL Normal <0.10 [facility] Comment on above: Order Comment: Speci men Type: BLOOD SPECIMENOrdering Facility: [facility] Address: [address] [place] [address] Performed By: #### 5 7021-8 ####[facility] LABCLIA [id number] [place] [address] Immature granulocytes/100 WBC (Bld) 0.5 % Normal [facility] Comment on above: Order Comment: Speci men Type: BLOOD SPECIMENOrdering Facility: [facility] Address: [address] [place] [address] Performed By: #### 5 7021-8 ####[facility] LABCLIA [id number] [place] [address] Lymphocytes (Bld) [#/Vol] 1.32 10*3/uL Normal 1.00-4.00 [facility] Comment on above: Order Comment: Speci men Type: BLOOD SPECIMENOrdering Facility: [facility] Address: [address] [place] [address] Performed By: #### 5 7021-8 ####[facility] LABIA [id number] [place] [address] Lymphocytes/100 WBC (Bld) 22.0 % Normal [facility] Comment on above: Order Comment: Speci men Type: BLOOD SPECIMENOrdering Facility: [facility] Address: [address] [place] [address] Performed By: #### 5 7021-8 ####[facility] LABCLIA [id number] [place] [address] MCH (RBC) [Entitic mass] 31.0 pg Normal 26.0-34.0 [facility] Comment on above: Order Comment: Speci men Type: BLOOD SPECIMENOrdering Facility: [facility] Address: [address] [place] [address] Performed By: #### 5 7021-8 ####[facility] LABIA [id number] [place] [address] MCHC (RBC) [Mass/Vol] 33.8 g/dL Normal 30.5-36.0 [facility] Comment on above: Order Comment: Speci men Type: BLOOD SPECIMENOrdering Facility: [facility] Address: [address] [place] [address] Performed By: #### 5 7021-8 ####[facility] LABCLIA [id number] [place] [address] MCV (RBC) [Entitic vol] 91.5 fL Normal 80.0-100.0 [facility] Comment on above: Order Comment: Speci men Type: BLOOD SPECIMENOrdering Facility: [facility] Address: [address] [place] [address] Performed By: #### 5 7021-8 ####[facility] LABCLIA [id number] [place] [address] Monocytes (Bld) [#/Vol] 1.12 10*3/uL High <0.87 [facility] Comment on above: Order Comment: Speci men Type: BLOOD SPECIMENOrdering Facility: [facility] Address: [address] [place] [address] Performed By: #### 5 7021-8 ####[facility] LABCLIA [id number] [place] [address] Monocytes/100 WBC (Bld) 18.7 % Normal [facility] Comment on above: Order Comment: Speci men Type: BLOOD SPECIMENOrdering Facility: [facility] Address: [address] [place] [address] Performed By: #### 5 7021-8 ####[facility] LABCLIA [id number] [place] [address] Neutrophils (Bld) [#/Vol] 3.23 10*3/uL Normal 1.45-7.50 [facility] Comment on above: Order Comment: Speci men Type: BLOOD SPECIMENOrdering Facility: [facility] Address: [address] [place] [address] Performed By: #### 5 7021-8 ####[facility] LABCLIA [id number] [place] [address] Neutrophils/100 WBC (Bld) 53.8 % Normal [facility] Comment on above: Order Comment: Speci men Type: BLOOD SPECIMENOrdering Facility: [facility] Address: [address] [place] [address] Performed By: #### 5 7021-8 ####[facility] LABCLIA [id number] [place] [address] Nucleated RBC (Bld) [#/Vol] 10*3/uL Normal <0.01 [facility] Comment on above: Order Comment: Speci men Type: BLOOD SPECIMENOrdering Facility: [facility] Address: [address] [place] [address] Performed By: #### 5 7021-8 ####[facility] LABCLIA [id number] [place] [address] Nucleated RBC/100 WBC (Bld) [Ratio] 0.0 /100 WBC Normal [facility] Comment on above: Order Comment: Speci men Type: BLOOD SPECIMENOrdering Facility: [facility] Address: [address] [place] [address] Performed By: #### 5 7021-8 ####[facility] LABCLIA [id number] [place] [address] Platelet mean volume (Bld) [Entitic vol] 10.5 fL Normal 9.0-12.7 [facility] Comment on above: Order Comment: Speci men Type: BLOOD SPECIMENOrdering Facility: [facility] Address: [address] [place] [address] Performed By: #### 5 7021-8 ####[facility] LABCLIA [id number] [place] [address] Platelets (Bld) [#/Vol] 223 10*3/uL Normal 150-400 [facility] Comment on above: Order Comment: Speci men Type: BLOOD SPECIMENOrdering Facility: [facility] Address: [address] [place] [address] Performed By: #### 5 7021-8 ####[facility] LABCLIA [id number] [place] [address] RBC (Bld) [#/Vol] 3.78 10*6/uL Low 4.20-6.00 [facility] Comment on above: Order Comment: Speci men Type: BLOOD SPECIMENOrdering Facility: [facility] Address: [address] [place] [address] Performed By: #### 5 7021-8 ####[facility] LABCLIA [id number] [place] [address] WBC (Bld) [#/Vol] 6.00 10*3/uL Normal 3.70-11.00 [facility] Comment on above: Order Comment: Speci men Type: BLOOD SPECIMENOrdering Facility: [facility] Address: [address] [place] [address] Performed By: #### 5 7021-8 ####[facility] LABCLIA [id number] [place] [address] CNOVon 06-30-2023 CNOV Normal [facility] CNOVSPon 06-30-2023 CNOVSP Normal [facility] Comprehensive metabolic 2000 panelon 06-30-2023 Albumin [Mass/Vol] 4.0 g/dL Normal 3.9-4.9 [facility] Comment on above: Order Comment: Speci men Type: BLOOD SPECIMENOrdering Facility: [facility] Address: [address] [place] [address] Performed By: #### 2 4323-8 ####[facility] LABCLIA [id number] [place] [address] ALP [Catalytic activity/Vol] 79 U/L Normal 38-113 [facility] Comment on above: Order Comment: Speci men Type: BLOOD SPECIMENOrdering Facility: [facility] Address: [address] [place] [address] Performed By: #### 2 4323-8 ####[facility] LABCLIA [id number] [place] [address] ALT [Catalytic activity/Vol] 30 U/L Normal 10-54 [facility] Comment on above: Order Comment: Speci men Type: BLOOD SPECIMENOrdering Facility: [facility] Address: [address] [place] [address] Performed By: #### 2 4323-8 ####[facility] LABCLIA [id number] [place] [address] Anion gap [Moles/Vol] 12 mmol/L Normal 9-18 [facility] Comment on above: Order Comment: Speci men Type: BLOOD SPECIMENOrdering Facility: [facility] Address: [address] [place] [address] Performed By: #### 2 4323-8 ####[facility] LABCLIA [id number] [place] [address] AST [Catalytic activity/Vol] 36 U/L Normal 14-40 [facility] Comment on above: Order Comment: Speci men Type: BLOOD SPECIMENOrdering Facility: [facility] Address: [address] [place] [address] Performed By: #### 2 4323-8 ####[facility] LABCLIA [id number] [place] [address] Bilirubin [Mass/Vol] 0.5 mg/dL Normal 0.2-1.3 [facility] Comment on above: Order Comment: Speci men Type: BLOOD SPECIMENOrdering Facility: [facility] Address: [address] [place] [address] Performed By: #### 2 4323-8 ####[facility] LABCLIA [id number] [place] [address] Calcium [Mass/Vol] 9.6 mg/dL Normal 8.5-10.2 [facility] Comment on above: Order Comment: Speci men Type: BLOOD SPECIMENOrdering Facility: [facility] Address: [address] [place] [address] Performed By: #### 2 4323-8 ####[facility] LABCLIA [id number] [place] [address] Chloride [Moles/Vol] 101 mmol/L Normal 97-105 [facility] Comment on above: Order Comment: Speci men Type: BLOOD SPECIMENOrdering Facility: [facility] Address: [address] [place] [address] Performed By: #### 2 4323-8 ####[facility] LABCLIA [id number] [place] [address] CO2 [Moles/Vol] 26 mmol/L Normal 22-30 [facility] Comment on above: Order Comment: Speci men Type: BLOOD SPECIMENOrdering Facility: [facility] Address: [address] [place] [address] Performed By: #### 2 4323-8 ####[facility] LABCLIA [id number] [place] [address] Creatinine [Mass/Vol] 1.34 mg/dL High 0.73-1.22 [facility] Comment on above: Order Comment: Speci men Type: BLOOD SPECIMENOrdering Facility: [facility] Address: [address] [place] [address] Performed By: #### 2 4323-8 ####[facility] LABCLIA [id number] [place] [address] Creatinine and Glomerular filtration rate.predicted panel (S/P/Bld) 58 mL/min/1.73m??? Low >=60 [facility] Comment on above: Order Comment: Speci men Type: BLOOD SPECIMENOrdering Facility: [facility] Address: [address] [place] [address] Result Comment: Landy mated Glomerular Filtration Rate [...] actual GFR. Performed By: #### 2 4323-8 ####[facility] LABIA [id number] [place] [address] Glucose [Mass/Vol] 100 mg/dL High 74-99 [facility] Comment on above: Order Comment: Speci men Type: BLOOD SPECIMENOrdering Facility: [facility] Address: [address] [place] [address] Result Comment: The [place] [employer] (ADA) provides guidance for cutoff [...] Standards of Medical Care in Diabetes 2016, [employer]. Diabetes Care. 2016.39(Suppl 1). Performed By: #### 2 4323-8 ####[facility] LABIA [id number] [place] [address] Potassium [Moles/Vol] 4.0 mmol/L Normal 3.7-5.1 [facility] Comment on above: Order Comment: Speci men Type: BLOOD SPECIMENOrdering Facility: [facility] Address: [address] [place] [address] Performed By: #### 2 4323-8 ####[facility] LABIA [id number] [place] [address] Protein [Mass/Vol] 7.4 g/dL Normal 6.3-8.0 [facility] Comment on above: Order Comment: Ajay men Type: BLOOD SPECIMENOrdering Facility: [facility] Address: [address] [place] [address] Performed By: #### 2 4323-8 ####[facility] LABCLIA [id number] [place] [address] Sodium [Moles/Vol] 139 mmol/L Normal 136-144 [facility] Comment on above: Order Comment: Speci men Type: BLOOD SPECIMENOrdering Facility: [facility] Address: [address] [place] [address] Performed By: #### 2 4323-8 ####[facility] LABCLIA [id number] [place] [address] Urea nitrogen [Mass/Vol] 28 mg/dL High 9-24 [facility] Comment on above: Order Comment: Speci men Type: BLOOD SPECIMENOrdering Facility: [facility] Address: [address] [place] [address] Performed By: #### 2 4323-8 ####[facility] LABCLIA [id number] [place] [address] TSH SerPl-aCncon 06-30-2023 TSH Qn 2.840 m[IU]/L Normal 0.270-4.200 [facility] Comment on above: Order Comment: Speci men Type: BLOOD SPECIMENOrdering Facility: [facility] Address: [address] [place] [address] Performed By: #### 3 016-3 ####[facility] LABCLIA [id number] [place] [address] [place] CNOVon 06-23-2023 CNOV Normal [facility] CNOVon 06-13-2023 CNOV Normal [facility] CNOVon 06-10-2023 CNOV Normal [facility] CBC W Auto Differential pane l (Bld)on 06-02-2023 Basophils (Bld) [#/Vol] <0.11 k/uL [facility] Basophils/100 WBC (Bld) 0.4 % [facility] Differential cell count method Nom (Bld) Auto [facility] Eosinophils (Bld) [#/Vol] 0.08 10*3/uL <0.46 k/uL [facility] Eosinophils/100 WBC (Bld) 1.5 % [facility] Erythrocyte distribution width (RBC) [Ratio] 13.9 % 11.5 - 15.0 % [facility] Hematocrit (Bld) [Volume fraction] 37.5 % Low 39.0 - 51.0 % [facility] Hemoglobin (Bld) [Mass/Vol] 12.9 g/dL Low 13.0 - 17.0 g/dL [facility] Immature granulocytes (Bld) [#/Vol] 0.03 10*3/uL <0.10 k/uL [facility] Immature granulocytes/100 WBC (Bld) 0.6 % [facility] Lymphocytes (Bld) [#/Vol] 0.76 10*3/uL Low 1.00 - 4.00 k/uL [facility] Lymphocytes/100 WBC (Bld) 14.1 % [facility] MCH (RBC) [Entitic mass] 31.7 pg 26.0 - 34.0 pg [facility] MCHC (RBC) [Mass/Vol] 34.4 g/dL 30.5 - 36.0 g/dL [facility] MCV (RBC) [Entitic vol] 92.1 fL 80.0 - 100.0 fL [facility] Monocytes (Bld) [#/Vol] 0.67 10*3/uL <0.87 k/uL [facility] Monocytes/100 WBC (Bld) 12.4 % [facility] Neutrophils (Bld) [#/Vol] 3.84 10*3/uL 1.45 - 7.50 k/uL [facility] Neutrophils/100 WBC (Bld) 71.0 % [facility] Nucleated RBC (Bld) [#/Vol] <0.01 k/uL [facility] Nucleated RBC/100 WBC (Bld) [Ratio] 0.0 /100 WBC [facility] Platelet mean volume (Bld) [Entitic vol] 10.6 fL 9.0 - 12.7 fL [facility] Platelets (Bld) [#/Vol] 205 10*3/uL 150 - 400 k/uL [facility] RBC (Bld) [#/Vol] 4.07 10*6/uL Low 4.20 - 6.00 m/uL [facility] WBC (Bld) [#/Vol] 5.40 10*3/uL 3.70 - 11.00 k/u L [facility] Basophils (Bld) [#/Vol] 10*3/uL Normal <0.11 [facility] Comment on above: Order Comment: Speci men Type: BLOOD SPECIMENOrdering Facility: [facility] Address: [address] [place] [address] Performed By: #### 5 7021-8 ####[facility] LABCLIA [id number] [place] [address] Basophils/100 WBC (Bld) 0.4 % Normal [facility] Comment on above: Order Comment: Speci men Type: BLOOD SPECIMENOrdering Facility: [facility] Address: [address] [place] [address] Performed By: #### 5 7021-8 ####[facility] LABCLIA [id number] [place] [address] Differential cell count method Nom (Bld) Auto Normal [facility] Comment on above: Order Comment: Speci men Type: BLOOD SPECIMENOrdering Facility: [facility] Address: [address] [place] [address] Performed By: #### 5 7021-8 ####[facility] LABCLIA [id number] [place] [address] Eosinophils (Bld) [#/Vol] 0.08 10*3/uL Normal <0.46 [facility] Comment on above: Order Comment: Speci men Type: BLOOD SPECIMENOrdering Facility: [facility] Address: [address] [place] [address] Performed By: #### 5 7021-8 ####[facility] LABCLIA [id number] [place] [address] Eosinophils/100 WBC (Bld) 1.5 % Normal [facility] Comment on above: Order Comment: Speci men Type: BLOOD SPECIMENOrdering Facility: [facility] Address: [address] [place] [address] Performed By: #### 5 7021-8 ####[facility] LABCLIA [id number] [place] [address] Erythrocyte distribution width (RBC) [Ratio] 13.9 % Normal 11.5-15.0 [facility] Comment on above: Order Comment: Speci men Type: BLOOD SPECIMENOrdering Facility: [facility] Address: [address] [place] [address] Performed By: #### 5 7021-8 ####[facility] LABCLIA [id number] [place] [address] Hematocrit (Bld) [Volume fraction] 37.5 % Low 39.0-51.0 [facility] Comment on above: Order Comment: Speci men Type: BLOOD SPECIMENOrdering Facility: [facility] Address: [address] [place] [address] Performed By: #### 5 7021-8 ####[facility] LABCLIA [id number] [place] [address] Hemoglobin (Bld) [Mass/Vol] 12.9 g/dL Low 13.0-17.0 [facility] Comment on above: Order Comment: Speci men Type: BLOOD SPECIMENOrdering Facility: [facility] Address: [address] [place] [address] Performed By: #### 5 7021-8 ####[facility] LABCLIA [id number] [place] [address] Immature granulocytes (Bld) [#/Vol] 0.03 10*3/uL Normal <0.10 [facility] Comment on above: Order Comment: Speci men Type: BLOOD SPECIMENOrdering Facility: [facility] Address: [address] [place] [address] Performed By: #### 5 7021-8 ####[facility] LABIA [id number] [place] [address] Immature granulocytes/100 WBC (Bld) 0.6 % Normal [facility] Comment on above: Order Comment: Speci men Type: BLOOD SPECIMENOrdering Facility: [facility] Address: [address] [place] [address] Performed By: #### 5 7021-8 ####[facility] LABCLIA [id number] [place] [address] Lymphocytes (Bld) [#/Vol] 0.76 10*3/uL Low 1.00-4.00 [facility] Comment on above: Order Comment: Speci men Type: BLOOD SPECIMENOrdering Facility: [facility] Address: [address] [place] [address] Performed By: #### 5 7021-8 ####[facility] LABCLIA [id number] [place] [address] Lymphocytes/100 WBC (Bld) 14.1 % Normal [facility] Comment on above: Order Comment: Speci men Type: BLOOD SPECIMENOrdering Facility: [facility] Address: [address] [place] [address] Performed By: #### 5 7021-8 ####[facility] LABCLIA [id number] [place] [address] MCH (RBC) [Entitic mass] 31.7 pg Normal 26.0-34.0 [facility] Comment on above: Order Comment: Speci men Type: BLOOD SPECIMENOrdering Facility: [facility] Address: [address] [place] [address] Performed By: #### 5 7021-8 ####[facility] LABCLIA [id number] [place] [address] MCHC (RBC) [Mass/Vol] 34.4 g/dL Normal 30.5-36.0 [facility] Comment on above: Order Comment: Speci men Type: BLOOD SPECIMENOrdering Facility: [facility] Address: [address] [place] [address] Performed By: #### 5 7021-8 ####[facility] LABCLIA [id number] [place] [address] MCV (RBC) [Entitic vol] 92.1 fL Normal 80.0-100.0 [facility] Comment on above: Order Comment: Speci men Type: BLOOD SPECIMENOrdering Facility: [facility] Address: [address] [place] [address] Performed By: #### 5 7021-8 ####[facility] LABCLIA [id number] [place] [address] Monocytes (Bld) [#/Vol] 0.67 10*3/uL Normal <0.87 [facility] Comment on above: Order Comment: Speci men Type: BLOOD SPECIMENOrdering Facility: [facility] Address: [address] [place] [address] Performed By: #### 5 7021-8 ####[facility] LABCLIA [id number] [place] [address] Monocytes/100 WBC (Bld) 12.4 % Normal [facility] Comment on above: Order Comment: Speci men Type: BLOOD SPECIMENOrdering Facility: [facility] Address: [address] [place] [address] Performed By: #### 5 7021-8 ####[facility] LABCLIA [id number] [place] [address] Neutrophils (Bld) [#/Vol] 3.84 10*3/uL Normal 1.45-7.50 [facility] Comment on above: Order Comment: Speci men Type: BLOOD SPECIMENOrdering Facility: [facility] Address: [address] [place] [address] Performed By: #### 5 7021-8 ####[facility] LABCLIA [id number] [place] [address] Neutrophils/100 WBC (Bld) 71.0 % Normal [facility] Comment on above: Order Comment: Speci men Type: BLOOD SPECIMENOrdering Facility: [facility] Address: [address] [place] [address] Performed By: #### 5 7021-8 ####[facility] LABCLIA [id number] [place] [address] Nucleated RBC (Bld) [#/Vol] 10*3/uL Normal <0.01 [facility] Comment on above: Order Comment: Speci men Type: BLOOD SPECIMENOrdering Facility: [facility] Address: [address] [place] [address] Performed By: #### 5 7021-8 ####[facility] LABCLIA [id number] [place] [address] Nucleated RBC/100 WBC (Bld) [Ratio] 0.0 /100 WBC Normal [facility] Comment on above: Order Comment: Speci men Type: BLOOD SPECIMENOrdering Facility: [facility] Address: [address] [place] [address] Performed By: #### 5 7021-8 ####[facility] LABCLIA [id number] [place] [address] Platelet mean volume (Bld) [Entitic vol] 10.6 fL Normal 9.0-12.7 [facility] Comment on above: Order Comment: Speci men Type: BLOOD SPECIMENOrdering Facility: [facility] Address: [address] [place] [address] Performed By: #### 5 7021-8 ####[facility] LABCLIA [id number] [place] [address] Platelets (Bld) [#/Vol] 205 10*3/uL Normal 150-400 [facility] Comment on above: Order Comment: Speci men Type: BLOOD SPECIMENOrdering Facility: [facility] Address: [address] [place] [address] Performed By: #### 5 7021-8 ####[facility] LABCLIA [id number] [place] [address] RBC (Bld) [#/Vol] 4.07 10*6/uL Low 4.20-6.00 [facility] Comment on above: Order Comment: Speci men Type: BLOOD SPECIMENOrdering Facility: [facility] Address: [address] [place] [address] Performed By: #### 5 7021-8 ####[facility] LABCLIA [id number] [place] [address] WBC (Bld) [#/Vol] 5.40 10*3/uL Normal 3.70-11.00 [facility] Comment on above: Order Comment: Speci men Type: BLOOD SPECIMENOrdering Facility: [facility] Address: [address] [place] [address] Performed By: #### 5 7021-8 ####[facility] LABCLIA [id number] [place] [address] CNOVSPon 06-02-2023 CNOVSP Normal [facility] metabolic 2000 panelon 06-02-2023 Albumin [Mass/Vol] 4.3 g/dL 3.9 - 4.9 g/dL [facility] ALP [Catalytic activity/Vol] 58 U/L 38 - 113 U/L [facility] ALT [Catalytic activity/Vol] 14 U/L 10 - 54 U/L [facility] Anion gap [Moles/Vol] 10 mmol/L 9 - 18 mmol/L [facility] AST [Catalytic activity/Vol] 18 U/L 14 - 40 U/L [facility] Bilirubin [Mass/Vol] 0.5 mg/dL 0.2 - 1.3 mg/dL [facility] Calcium [Mass/Vol] 9.8 mg/dL 8.5 - 10.2 mg/dL [facility] Chloride [Moles/Vol] 102 mmol/L 97 - 105 mmol/L [facility] CO2 [Moles/Vol] 26 mmol/L 22 - 30 mmol/L [facility] Creatinine [Mass/Vol] 0.90 mg/dL 0.73 - 1.22 mg/dL [facility] Estimated Glomerular Filtration Rate 94 mL/min/1.73m >=60 mL/min/1.73m [facility] Glucose [Mass/Vol] 117 mg/dL High 74 - 99 mg/dL [facility] Potassium [Moles/Vol] 3.5 mmol/L Low 3.7 - 5.1 mmol/L [facility] Protein [Mass/Vol] 7.7 g/dL 6.3 - 8.0 g/dL [facility] Sodium [Moles/Vol] 138 mmol/L 136 - 144 mmol/L [facility] Urea nitrogen [Mass/Vol] 24 mg/dL 9 - 24 mg/dL [facility] Albumin [Mass/Vol] 4.3 g/dL Normal 3.9-4.9 [facility] Comment on above: Order Comment: Speci men Type: BLOOD SPECIMENOrdering Facility: [facility] Address: [address] [place] [address] Performed By: #### 2 4323-8 ####[facility] LABCLIA [id number] [place] [address] ALP [Catalytic activity/Vol] 58 U/L Normal 38-113 [facility] Comment on above: Order Comment: Speci men Type: BLOOD SPECIMENOrdering Facility: [facility] Address: [address] [place] [address] Performed By: #### 2 4323-8 ####[facility] LABCLIA [id number] [place] [address] ALT [Catalytic activity/Vol] 14 U/L Normal 10-54 [facility] Comment on above: Order Comment: Speci men Type: BLOOD SPECIMENOrdering Facility: [facility] Address: [address] [place] [address] Performed By: #### 2 4323-8 ####[facility] LABCLIA [id number] [place] [address] Anion gap [Moles/Vol] 10 mmol/L Normal 9-18 [facility] Comment on above: Order Comment: Speci men Type: BLOOD SPECIMENOrdering Facility: [facility] Address: [address] [place] [address] Performed By: #### 2 4323-8 ####[facility] LABCLIA [id number] [place] [address] AST [Catalytic activity/Vol] 18 U/L Normal 14-40 [facility] Comment on above: Order Comment: Speci men Type: BLOOD SPECIMENOrdering Facility: [facility] Address: [address] [place] [address] Performed By: #### 2 4323-8 ####[facility] LABCLIA [id number] [place] [address] Bilirubin [Mass/Vol] 0.5 mg/dL Normal 0.2-1.3 [facility] Comment on above: Order Comment: Speci men Type: BLOOD SPECIMENOrdering Facility: [facility] Address: [address] [place] [address] Performed By: #### 2 4323-8 ####[facility] LABCLIA [id number] [place] [address] Calcium [Mass/Vol] 9.8 mg/dL Normal 8.5-10.2 [facility] Comment on above: Order Comment: Speci men Type: BLOOD SPECIMENOrdering Facility: [facility] Address: [address] [place] [address] Performed By: #### 2 4323-8 ####[facility] LABCLIA [id number] [place] [address] Chloride [Moles/Vol] 102 mmol/L Normal 97-105 [facility] Comment on above: Order Comment: Speci men Type: BLOOD SPECIMENOrdering Facility: [facility] Address: [address] [place] [address] Performed By: #### 2 4323-8 ####[facility] LABCLIA [id number] [place] [address] CO2 [Moles/Vol] 26 mmol/L Normal 22-30 [facility] Comment on above: Order Comment: Speci men Type: BLOOD SPECIMENOrdering Facility: [facility] Address: [address] [place] [address] Performed By: #### 2 4323-8 ####[facility] LABCLIA [id number] [place] [address] Creatinine [Mass/Vol] 0.90 mg/dL Normal 0.73-1.22 [facility] Comment on above: Order Comment: Ajay rausch Type: BLOOD SPECIMENOrdering Facility: [facility] Address: [address] [place] [address] Performed By: #### 2 4323-8 ####[facility] LABCLIA [id number] [place] [address] Creatinine and Glomerular filtration rate.predicted panel (S/P/Bld) 94 mL/min/1.73m??? Normal >=60 [facility] Comment on above: Order Comment: Ajay rausch Type: BLOOD SPECIMENOrdering Facility: [facility] Address: [address] [place] [address] Result Comment: Landy mated Glomerular Filtration Rate [...] actual GFR. Performed By: #### 2 4323-8 ####[facility] LABCLIA [id number] [place] [address] Glucose [Mass/Vol] 117 mg/dL High 74-99 [facility] Comment on above: Order Comment: Ajay rausch Type: BLOOD SPECIMENOrdering Facility: [facility] Address: [address] [place] [address] Result Comment: The [employer] (ADA) provides guidance for cutoff [...] Standards of Medical Care in Diabetes 2016, [employer]. Diabetes Care. 2016.39(Suppl 1). Performed By: #### 2 4323-8 ####[facility] LABCLIA [id number] [place] [address] Potassium [Moles/Vol] 3.5 mmol/L Low 3.7-5.1 [facility] Comment on above: Order Comment: Speci men Type: BLOOD SPECIMENOrdering Facility: [facility] Address: [address] [place] [address] Performed By: #### 2 4323-8 ####[facility] LABIA [id number] [place] [address] Protein [Mass/Vol] 7.7 g/dL Normal 6.3-8.0 [facility] Comment on above: Order Comment: Speci men Type: BLOOD SPECIMENOrdering Facility: [facility] Address: [address] [place] [address] Performed By: #### 2 4323-8 ####[facility] LABCLIA [id number] [place] [address] Sodium [Moles/Vol] 138 mmol/L Normal 136-144 [facility] Comment on above: Order Comment: Speci men Type: BLOOD SPECIMENOrdering Facility: [facility] Address: [address] [place] [address] Performed By: #### 2 4323-8 ####[facility] LABCLIA [id number] [place] [address] Urea nitrogen [Mass/Vol] 24 mg/dL Normal 9-24 [facility] Comment on above: Order Comment: Speci men Type: BLOOD SPECIMENOrdering Facility: [facility] Address: [address] [place] [address] Performed By: #### 2 4323-8 ####[facility] LABCLIA [id number] [place] [address] CNCNPATEDon 05-30-2023 CNCNPATED Normal [facility] CNOVon 05-30-2023 CNOV Normal [facility] CNOVon 05-27-2023 CNOV Normal [facility] CNCNPATEDon 05-20-2023 CNCNPATED Normal [facility] CNPNon 05-20-2023 CNPN Normal [facility] CNPNon 05-19-2023 CNPN Normal [facility] CNOVon 05-16-2023 CNOV Normal [facility] CNPNon 05-15-2023 CNPN Normal [facility] CNPNon 05-14-2023 CNPN Normal [facility] CBC W Auto Differential pane l (Bld)on 05-13-2023 Basophils (Bld) [#/Vol] 10*3/uL Normal <0.11 [facility] Comment on above: Order Comment: Speci men Type: BLOOD SPECIMENOrdering Facility: [facility] Address: [address] [place] [address] Performed By: #### 5 7021-8 ####[facility] LABCLIA [id number] [place] [address] Basophils/100 WBC (Bld) 0.3 % Normal [facility] Comment on above: Order Comment: Speci men Type: BLOOD SPECIMENOrdering Facility: [facility] Address: [address] [place] [address] Performed By: #### 5 7021-8 ####[facility] LABCLIA [id number] [place] [address] Differential cell count method Nom (Bld) Auto Normal [facility] Comment on above: Order Comment: Speci men Type: BLOOD SPECIMENOrdering Facility: [facility] Address: [address] [place] [address] Performed By: #### 5 7021-8 ####[facility] LABCLIA [id number] [place] [address] Eosinophils (Bld) [#/Vol] 0.14 10*3/uL Normal <0.46 [facility] Comment on above: Order Comment: Speci men Type: BLOOD SPECIMENOrdering Facility: [facility] Address: [address] [place] [address] Performed By: #### 5 7021-8 ####[facility] LABCLIA [id number] [place] [address] Eosinophils/100 WBC (Bld) 2.3 % Normal [facility] Comment on above: Order Comment: Speci men Type: BLOOD SPECIMENOrdering Facility: [facility] Address: [address] [place] [address] Performed By: #### 5 7021-8 ####[facility] LABCLIA [id number] [place] [address] Erythrocyte distribution width (RBC) [Ratio] 13.7 % Normal 11.5-15.0 [facility] Comment on above: Order Comment: Speci men Type: BLOOD SPECIMENOrdering Facility: [facility] Address: [address] [place] [address] Performed By: #### 5 7021-8 ####[facility] LABCLIA [id number] [place] [address] Hematocrit (Bld) [Volume fraction] 37.6 % Low 39.0-51.0 [facility] Comment on above: Order Comment: Speci men Type: BLOOD SPECIMENOrdering Facility: [facility] Address: [address] [place] [address] Performed By: #### 5 7021-8 ####[facility] LABCLIA [id number] [place] [address] Hemoglobin (Bld) [Mass/Vol] 13.0 g/dL Normal 13.0-17.0 [facility] Comment on above: Order Comment: Speci men Type: BLOOD SPECIMENOrdering Facility: [facility] Address: [address] [place] [address] Performed By: #### 5 7021-8 ####[facility] LABCLIA [id number] [place] [address] Immature granulocytes (Bld) [#/Vol] 0.03 10*3/uL Normal <0.10 [facility] Comment on above: Order Comment: Speci men Type: BLOOD SPECIMENOrdering Facility: [facility] Address: [address] [place] [address] Performed By: #### 5 7021-8 ####[facility] LABCLIA [id number] [place] [address] Immature granulocytes/100 WBC (Bld) 0.5 % Normal [facility] Comment on above: Order Comment: Speci men Type: BLOOD SPECIMENOrdering Facility: [facility] Address: [address] [place] [address] Performed By: #### 5 7021-8 ####[facility] LABIA [id number] [place] [address] Lymphocytes (Bld) [#/Vol] 1.01 10*3/uL Normal 1.00-4.00 [facility] Comment on above: Order Comment: Speci men Type: BLOOD SPECIMENOrdering Facility: [facility] Address: [address] [place] [address] Performed By: #### 5 7021-8 ####[facility] LABCLIA [id number] [place] [address] Lymphocytes/100 WBC (Bld) 16.4 % Normal [facility] Comment on above: Order Comment: Speci men Type: BLOOD SPECIMENOrdering Facility: [facility] Address: [address] [place] [address] Performed By: #### 5 7021-8 ####[facility] LABIA [id number] [place] [address] MCH (RBC) [Entitic mass] 31.9 pg Normal 26.0-34.0 [facility] Comment on above: Order Comment: Speci men Type: BLOOD SPECIMENOrdering Facility: [facility] Address: [address] [place] [address] Performed By: #### 5 7021-8 ####[facility] LABCLIA [id number] [place] [address] MCHC (RBC) [Mass/Vol] 34.6 g/dL Normal 30.5-36.0 [facility] Comment on above: Order Comment: Speci men Type: BLOOD SPECIMENOrdering Facility: [facility] Address: [address] [place] [address] Performed By: #### 5 7021-8 ####[facility] LABCLIA [id number] [place] [address] MCV (RBC) [Entitic vol] 92.2 fL Normal 80.0-100.0 [facility] Comment on above: Order Comment: Speci men Type: BLOOD SPECIMENOrdering Facility: [facility] Address: [address] [place] [address] Performed By: #### 5 7021-8 ####[facility] LABCLIA [id number] [place] [address] Monocytes (Bld) [#/Vol] 0.86 10*3/uL Normal <0.87 [facility] Comment on above: Order Comment: Speci men Type: BLOOD SPECIMENOrdering Facility: [facility] Address: [address] [place] [address] Performed By: #### 5 7021-8 ####[facility] LABCLIA [id number] [place] [address] Monocytes/100 WBC (Bld) 14.0 % Normal [facility] Comment on above: Order Comment: Speci men Type: BLOOD SPECIMENOrdering Facility: [facility] Address: [address] [place] [address] Performed By: #### 5 7021-8 ####[facility] LABCLIA [id number] [place] [address] Neutrophils (Bld) [#/Vol] 4.09 10*3/uL Normal 1.45-7.50 [facility] Comment on above: Order Comment: Speci men Type: BLOOD SPECIMENOrdering Facility: [facility] Address: [address] [place] [address] Performed By: #### 5 7021-8 ####[facility] LABCLIA [id number] [place] [address] Neutrophils/100 WBC (Bld) 66.5 % Normal [facility] Comment on above: Order Comment: Speci men Type: BLOOD SPECIMENOrdering Facility: [facility] Address: [address] [place] [address] Performed By: #### 5 7021-8 ####[facility] LABCLIA [id number] [place] [address] Nucleated RBC (Bld) [#/Vol] 10*3/uL Normal <0.01 [facility] Comment on above: Order Comment: Speci men Type: BLOOD SPECIMENOrdering Facility: [facility] Address: [address] [place] [address] Performed By: #### 5 7021-8 ####[facility] LABCLIA [id number] [place] [address] Nucleated RBC/100 WBC (Bld) [Ratio] 0.0 /100 WBC Normal [facility] Comment on above: Order Comment: Speci men Type: BLOOD SPECIMENOrdering Facility: [facility] Address: [address] [place] [address] Performed By: #### 5 7021-8 ####[facility] LABCLIA [id number] [place] [address] Platelet mean volume (Bld) [Entitic vol] 11.4 fL Normal 9.0-12.7 [facility] Comment on above: Order Comment: Speci men Type: BLOOD SPECIMENOrdering Facility: [facility] Address: [address] [place] [address] Performed By: #### 5 7021-8 ####[facility] LABCLIA [id number] [place] [address] Platelets (Bld) [#/Vol] 188 10*3/uL Normal 150-400 [facility] Comment on above: Order Comment: Speci men Type: BLOOD SPECIMENOrdering Facility: [facility] Address: [address] [place] [address] Performed By: #### 5 7021-8 ####[facility] LABIA [id number] [place] [address] RBC (Bld) [#/Vol] 4.08 10*6/uL Low 4.20-6.00 [facility] Comment on above: Order Comment: Speci men Type: BLOOD SPECIMENOrdering Facility: [facility] Address: [address] [place] [address] Performed By: #### 5 7021-8 ####[facility] LABIA [id number] [place] [address] WBC (Bld) [#/Vol] 6.15 10*3/uL Normal 3.70-11.00 [facility] Comment on above: Order Comment: Speci men Type: BLOOD SPECIMENOrdering Facility: [facility] Address: [address] [place] [address] Performed By: #### 5 7021-8 ####[facility] LABIA [id number] [place] [address] CNOVSPon 05-13-2023 CNOVSP Normal [facility] CNPNon 05-13-2023 CNPN Normal [facility] Comprehensive metabolic 2000 panelon 05-13-2023 Albumin [Mass/Vol] 4.5 g/dL Normal 3.9-4.9 [facility] Comment on above: Order Comment: Speci men Type: BLOOD SPECIMENOrdering Facility: [facility] Address: [address] [place] [address] Performed By: #### 2 4323-8 ####[facility] LABCLIA [id number] [place] [address] ALP [Catalytic activity/Vol] 68 U/L Normal 38-113 [facility] Comment on above: Order Comment: Speci men Type: BLOOD SPECIMENOrdering Facility: [facility] Address: [address] [place] [address] Performed By: #### 2 4323-8 ####[facility] LABCLIA [id number] [place] [address] ALT [Catalytic activity/Vol] 24 U/L Normal 10-54 [facility] Comment on above: Order Comment: Speci men Type: BLOOD SPECIMENOrdering Facility: [facility] Address: [address] [place] [address] Performed By: #### 2 4323-8 ####[facility] LABCLIA [id number] [place] [address] Anion gap [Moles/Vol] 7 mmol/L Low 9-18 [facility] Comment on above: Order Comment: Speci men Type: BLOOD SPECIMENOrdering Facility: [facility] Address: [address] [place] [address] Performed By: #### 2 4323-8 ####[facility] LABCLIA [id number] [place] [address] AST [Catalytic activity/Vol] 24 U/L Normal 14-40 [facility] Comment on above: Order Comment: Speci men Type: BLOOD SPECIMENOrdering Facility: [facility] Address: [address] [place] [address] Performed By: #### 2 4323-8 ####[facility] LABCLIA [id number] [place] [address] Bilirubin [Mass/Vol] 0.4 mg/dL Normal 0.2-1.3 [facility] Comment on above: Order Comment: Speci men Type: BLOOD SPECIMENOrdering Facility: [facility] Address: [address] [place] [address] Performed By: #### 2 4323-8 ####[facility] LABCLIA [id number] [place] [address] Calcium [Mass/Vol] 9.8 mg/dL Normal 8.5-10.2 [facility] Comment on above: Order Comment: Speci men Type: BLOOD SPECIMENOrdering Facility: [facility] Address: [address] [place] [address] Performed By: #### 2 4323-8 ####[facility] LABCLIA [id number] [place] [address] Chloride [Moles/Vol] 102 mmol/L Normal 97-105 [facility] Comment on above: Order Comment: Speci men Type: BLOOD SPECIMENOrdering Facility: [facility] Address: [address] [place] [address] Performed By: #### 2 4323-8 ####[facility] LABCLIA [id number] [place] [address] CO2 [Moles/Vol] 28 mmol/L Normal 22-30 [facility] Comment on above: Order Comment: Speci men Type: BLOOD SPECIMENOrdering Facility: [facility] Address: [address] [place] [address] Performed By: #### 2 4323-8 ####[facility] LABCLIA [id number] [place] [address] Creatinine [Mass/Vol] 1.06 mg/dL Normal 0.73-1.22 [facility] Comment on above: Order Comment: Speci men Type: BLOOD SPECIMENOrdering Facility: [facility] Address: [address] [place] [address] Performed By: #### 2 4323-8 ####[facility] LABIA [id number] [place] [address] Creatinine and Glomerular filtration rate.predicted panel (S/P/Bld) 77 mL/min/1.73m??? Normal >=60 [facility] Comment on above: Order Comment: Speci men Type: BLOOD SPECIMENOrdering Facility: [facility] Address: [address] [place] [address] Result Comment: Landy mated Glomerular Filtration Rate [...] actual GFR. Performed By: #### 2 4323-8 ####[facility] LABCLIA [id number] [place] [address] Glucose [Mass/Vol] 150 mg/dL High 74-99 [facility] Comment on above: Order Comment: Ajay rausch Type: BLOOD SPECIMENOrdering Facility: [facility] Address: [address] [place] [address] Result Comment: The [place] Diabetes Association (ADA) provides guidance for cutoff [...] Standards of Medical Care in Diabetes 2016, [employer] Diabetes Association. Diabetes Care. 2016.39(Suppl 1). Performed By: #### 2 4323-8 ####[facility] LABCLIA [id number] [place] [address] Potassium [Moles/Vol] 3.4 mmol/L Low 3.7-5.1 [facility] Comment on above: Order Comment: Ajay rausch Type: BLOOD SPECIMENOrdering Facility: [facility] Address: [address] [place], [place] [address] Performed By: #### 2 4323-8 ####[facility] LABCLIA [id number] [place] [address] Protein [Mass/Vol] 7.5 g/dL Normal 6.3-8.0 [facility] Comment on above: Order Comment: Speci men Type: BLOOD SPECIMENOrdering Facility: [facility] Address: [address] [place] [address] Performed By: #### 2 4323-8 ####[facility] LABCLIA [id number] [place] [address] Sodium [Moles/Vol] 137 mmol/L Normal 136-144 [facility] Comment on above: Order Comment: Speci men Type: BLOOD SPECIMENOrdering Facility: [facility] Address: [address] [place] [address] Performed By: #### 2 4323-8 ####[facility] LABCLIA [id number] [place] [address] Urea nitrogen [Mass/Vol] 30 mg/dL High 9-24 [facility] Comment on above: Order Comment: Speci men Type: BLOOD SPECIMENOrdering Facility: [facility] Address: [address] [place] [address] Performed By: #### 2 4323-8 ####[facility] LABCLIA [id number] [place] [address] T4/FTI/T4Uon 05-13-2023 FTI 6.6 ug/dL Normal 5.3-10.8 [facility] Comment on above: Order Comment: Speci men Type: BLOOD SPECIMENOrdering Facility: [facility] Address: [address] [place] [address] Performed By: #### T 4FTI, 3016-3 ####[facility] LABCLIA [id number] [facility] [id number] [address] [place] T4 [Mass/Vol] 6.3 ug/dL Normal 5.5-10.2 [facility] Comment on above: Order Comment: Speci men Type: BLOOD SPECIMENOrdering Facility: [facility] Address: [address] [place] [address] Performed By: #### T 4FTI, 3016-3 ####[facility] LABCLIA [id number] [place] [address] [place] T4 uptake [Mass/Vol] 0.96 Normal 0.91-1.19 [facility] Comment on above: Order Comment: Speci men Type: BLOOD SPECIMENOrdering Facility: [facility] Address: [address] [place] [address] Performed By: #### T 4FTI, 6-3 ####[facility] LABCLIA [id number] [place] [address] [place] TSH SerPl-aCncon 05-13-2023 TSH Qn 47.800 m[IU]/L High 0.270-4.200 [facility] Comment on above: Order Comment: Speci men Type: BLOOD SPECIMENOrdering Facility: [facility] Address: [address] [place] [address] Performed By: #### T 4FALEJANDRO, 6-3 ####[facility] LABIA [id number] [place] [address] [place] NM PET/CT SKULL-THIGH SUBQon 05-12-2023 NM PET/CT SKULL-THIGH SUBQ Normal [facility] CNPNon 05-08-2023 CNPN Normal [facility] CNPNon 04-23-2023 CNPN Normal [facility] CBC W Auto Differential pane l (Bld)on 04-22-2023 Basophils (Bld) [#/Vol] 0.04 10*3/uL Normal <0.11 [facility] Comment on above: Order Comment: Speci men Type: BLOOD SPECIMENOrdering Facility: [facility] Address: [address] [place], [place] [address] Performed By: #### 5 7021-8 ####[facility] LABCLIA [id number] [place] [address] Basophils/100 WBC (Bld) 0.8 % Normal [facility] Comment on above: Order Comment: Speci men Type: BLOOD SPECIMENOrdering Facility: [facility] Address: [address] [address] Performed By: #### 5 7021-8 ####[facility] LABCLIA [id number] [place] [address] Differential cell count method Nom (Bld) Auto Normal [facility] Comment on above: Order Comment: Speci men Type: BLOOD SPECIMENOrdering Facility: [facility] Address: [address] [place] [address] Performed By: #### 5 7021-8 ####[facility] LABCLIA [id number] [place] [address] Eosinophils (Bld) [#/Vol] 0.07 10*3/uL Normal <0.46 [facility] Comment on above: Order Comment: Speci men Type: BLOOD SPECIMENOrdering Facility: [facility] Address: [address] [address] Performed By: #### 5 7021-8 ####[facility] LABCLIA [id number] [place] [address] Eosinophils/100 WBC (Bld) 1.4 % Normal [facility] Comment on above: Order Comment: Speci men Type: BLOOD SPECIMENOrdering Facility: [facility] Address: [address] [place] [address] Performed By: #### 5 7021-8 ####[facility] LABCLIA [id number] [place] [address] Erythrocyte distribution width (RBC) [Ratio] 14.5 % Normal 11.5-15.0 [facility] Comment on above: Order Comment: Speci men Type: BLOOD SPECIMENOrdering Facility: [facility] Address: [address] [place] [address] Performed By: #### 5 7021-8 ####[facility] LABCLIA [id number] [place] [address] Hematocrit (Bld) [Volume fraction] 39.9 % Normal 39.0-51.0 [facility] Comment on above: Order Comment: Speci men Type: BLOOD SPECIMENOrdering Facility: [facility] Address: [address] [place] [address] Performed By: #### 5 7021-8 ####[facility] LABCLIA [id number] [place] [address] Hemoglobin (Bld) [Mass/Vol] 13.7 g/dL Normal 13.0-17.0 [facility] Comment on above: Order Comment: Speci men Type: BLOOD SPECIMENOrdering Facility: [facility] Address: [address] [place] [address] Performed By: #### 5 7021-8 ####[facility] LABCLIA [id number] [place] [address] Immature granulocytes (Bld) [#/Vol] 0.05 10*3/uL Normal <0.10 [facility] Comment on above: Order Comment: Speci men Type: BLOOD SPECIMENOrdering Facility: [facility] Address: [address] [place] [address] Performed By: #### 5 7021-8 ####[facility] LABCLIA [id number] [place] [address] Immature granulocytes/100 WBC (Bld) 1.0 % Normal [facility] Comment on above: Order Comment: Speci men Type: BLOOD SPECIMENOrdering Facility: [facility] Address: [address] [place] [address] Performed By: #### 5 7021-8 ####[facility] LABCLIA [id number] [place] [address] Lymphocytes (Bld) [#/Vol] 0.82 10*3/uL Low 1.00-4.00 [facility] Comment on above: Order Comment: Speci men Type: BLOOD SPECIMENOrdering Facility: [facility] Address: [address] [place] [address] Performed By: #### 5 7021-8 ####[facility] LABCLIA [id number] [place] [address] Lymphocytes/100 WBC (Bld) 16.2 % Normal [facility] Comment on above: Order Comment: Speci men Type: BLOOD SPECIMENOrdering Facility: [facility] Address: [address] [place] [address] Performed By: #### 5 7021-8 ####[facility] LABCLIA [id number] [place] [address] MCH (RBC) [Entitic mass] 32.0 pg Normal 26.0-34.0 [facility] Comment on above: Order Comment: Speci men Type: BLOOD SPECIMENOrdering Facility: [facility] Address: [address] [place] [address] Performed By: #### 5 7021-8 ####[facility] LABCLIA [id number] [place] [address] MCHC (RBC) [Mass/Vol] 34.3 g/dL Normal 30.5-36.0 [facility] Comment on above: Order Comment: Speci men Type: BLOOD SPECIMENOrdering Facility: [facility] Address: [address] [place] [address] Performed By: #### 5 7021-8 ####[facility] LABCLIA [id number] [place] [address] MCV (RBC) [Entitic vol] 93.2 fL Normal 80.0-100.0 [facility] Comment on above: Order Comment: Speci men Type: BLOOD SPECIMENOrdering Facility: [facility] Address: [address] [place] [address] Performed By: #### 5 7021-8 ####[facility] LABCLIA [id number] [place] [address] Monocytes (Bld) [#/Vol] 0.45 10*3/uL Normal <0.87 [facility] Comment on above: Order Comment: Speci men Type: BLOOD SPECIMENOrdering Facility: [facility] Address: [address] [place] [address] Performed By: #### 5 7021-8 ####[facility] LABCLIA [id number] [place] [address] Monocytes/100 WBC (Bld) 8.9 % Normal [facility] Comment on above: Order Comment: Speci men Type: BLOOD SPECIMENOrdering Facility: [facility] Address: [address] [place] [address] Performed By: #### 5 7021-8 ####[facility] LABCLIA [id number] [place] [address] Neutrophils (Bld) [#/Vol] 3.63 10*3/uL Normal 1.45-7.50 [facility] Comment on above: Order Comment: Speci men Type: BLOOD SPECIMENOrdering Facility: [facility] Address: [address] [place] [address] Performed By: #### 5 7021-8 ####[facility] LABCLIA [id number] [place] [address] Neutrophils/100 WBC (Bld) 71.7 % Normal [facility] Comment on above: Order Comment: Speci men Type: BLOOD SPECIMENOrdering Facility: [facility] Address: [address] [place] [address] Performed By: #### 5 7021-8 ####[facility] LABIA [id number] [place] [address] Nucleated RBC (Bld) [#/Vol] 10*3/uL Normal <0.01 [facility] Comment on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 [Mass/Vol] 4.2 g/dL 3.5-5.7 [facility] Alkaline phosphatase [Enzyma tic activity/volume] in Serum or PlasmaOrdered By: Sapna Angulo on 01-03-2023 ALP [Catalytic activity/Vol] 63 U/L 34-104 [facility] Aspartate aminotransferase [ Enzymatic activity/volume] in Serum or PlasmaOrdered By: Sapan Angulo on 01-03-2023 AST [Catalytic activity/Vol] 32 U/L 13-39 [facility] Basophils Auto (Bld) [#/Vol] Ordered By: Sapna Angulo on 01-03-2023 Basophils (Bld) [#/Vol] 0.0 10*3/uL 0.0-0.2 [facility] Basophils/100 WBC Auto (Bld) Ordered By: Sapna Angulo on 01-03-2023 Basophils/100 WBC (Bld) 0.4 % . [facility] Bilirubin.direct [Mass/volum e] in Serum or PlasmaOrdered By: Sapna Angulo on 01-03-2023 Bilirubin.direct [Mass/Vol] 0.30 mg/dL 0.03-0.18 [facility] Bilirubin.total [Mass/volume ] in Serum or PlasmaOrdered By: Sapna Angulo on 01-03-2023 Bilirubin [Mass/Vol] 1.0 mg/dL 0.3-1.0 [facility] Calcium [Mass/volume] in Ser um or PlasmaOrdered By: Sapna Angulo on 01-03-2023 Calcium [Mass/Vol] 9.6 mg/dL 8.6-10.3 [facility] Carbon dioxide, total [Moles /volume] in Serum or PlasmaOrdered By: Sapna Angulo on 01-03-2023 CO2 [Moles/Vol] 26.8 mmol/L 21.0-31.0 [facility] Chloride [Moles/volume] in S juanpablo or PlasmaOrdered By: Sapna Angulo on 01-03-2023 Chloride [Moles/Vol] 104 mmol/L 98-107 [facility] Creatinine [Mass/volume] in Serum or PlasmaOrdered By: Sapna Angulo on 01-03-2023 Creatinine [Mass/Vol] 0.89 mg/dL 0.70-1.30 [facility] Eosinophils Auto (Bld) [#/Vo l]Ordered By: Sapna Angulo on 01-03-2023 Eosinophils (Bld) [#/Vol] 0.1 10*3/uL 0.0-0.45 [facility] Eosinophils/100 WBC Auto (Bl d)Ordered By: Sapna Angulo on 01-03-2023 Eosinophils/100 WBC (Bld) 1.4 % . [facility] Erythrocyte distribution wid th Auto (RBC) [Ratio]Ordered By: Sapna Anguol on 01-03-2023 Erythrocyte distribution width (RBC) [Ratio] 16.7 % 12.0-14.8 [facility] Globulin Calc (S) [Mass/Vol] Ordered By: Sapna Angulo 01-03-2023 Globulin (S) [Mass/Vol] 3.2 g/dL [facility] Glucose [Mass/volume] in Ser um or PlasmaOrdered By: Sapna Angulo on 01-03-2023 Glucose [Mass/Vol] 96 mg/dL 70-100 [facility] Comment on above: ADA recommended refe rence rangeRandom Glucose Reference Range is dependent on time and content of last meal. Glucose of more than 200 mg/dL in a nonstressed, ambulatory subject supports the diagnosis of Diabetes Mellitus. Hematocrit Auto (Bld) [Volum e fraction]Ordered By: Sapna Angulo on 01-03-2023 Hematocrit (Bld) [Volume fraction] 39.0 % 38.8-50.0 [facility] Hemoglobin [Mass/volume] in BloodOrdered By: Sapna Angulo on 01-03-2023 Hemoglobin (Bld) [Mass/Vol] 13.2 g/dL 13.0-17.0 [facility] Laboratory - CoagulationOrde red By: Sapna Angulo on 01-03-2023 PT Coag (PPP) [Time] 12.1 s 9.0-12.9 [facility] Leukocytes [#/volume] correc nani for nucleated erythrocytes in Blood by Automated counOrdered By: Sapna Angulo on 01-03-2023 WBC corrected for nucl RBC Auto (Bld) [#/Vol] 5.6 10*3/uL 4.1-10.5 [facility] Lymphocytes Auto (Bld) [#/Vo l]Ordered By: Sapna Angulo on 01-03-2023 Lymphocytes (Bld) [#/Vol] 0.9 10*3/uL 1.00-4.8 [facility] Lymphocytes/100 WBC Auto (Bl d)Ordered By: Sapna Angulo on 01-03-2023 Lymphocytes/100 WBC (Bld) 16.1 % . [facility] MCH Auto (RBC) [Entitic mass ]Ordered By: Sapna Angulo on 01-03-2023 MCH (RBC) [Entitic mass] 30.0 pg 27.5-35.2 [facility] MCHC Auto (RBC) [Mass/Vol]Or dered By: Sapna Angulo on 01-03-2023 MCHC (RBC) [Mass/Vol] 33.9 g/dL 32.5-35.6 [facility] MCV Auto (RBC) [Entitic vol] Ordered By: Sapna Angulo on 01-03-2023 MCV (RBC) [Entitic vol] 88.4 fL 83.5-101 [facility] Monocyte distribution width [Entitic volume] in Blood by AutomatedOrdered By: Sapna Angulo on 01-03-2023 Monocyte distribution width Auto (Bld) [Entitic vol] 20.82 % 0.00-20.00 [facility] Comment on above: For adults in ED, MD W > 20.0 may be associated with a higher risk of sepsis during the first 12 hrs of hospital admission Monocytes Auto (Bld) [#/Vol] Ordered By: Sapna Angulo on 01-03-2023 Monocytes (Bld) [#/Vol] 0.7 10*3/uL 0.0-0.8 [facility] Monocytes/100 WBC Auto (Bld) Ordered By: Sapna Angulo on 01-03-2023 Monocytes/100 WBC (Bld) 11.8 % . [facility] Natriuretic peptide B [Mass/ Vol]Ordered By: Sapna Angulo on 01-03-2023 Natriuretic peptide B (Bld) [Mass/Vol] 93.0 pg/mL 5-100 [facility] Neutrophils Auto (Bld) [#/Vo l]Ordered By: Sapna Angulo on 01-03-2023 Neutrophils (Bld) [#/Vol] 3.9 10*3/uL 1.8-7.7 [facility] Neutrophils/100 WBC Auto (Bl d)Ordered By: Sapna Angulo on 01-03-2023 Neutrophils/100 WBC (Bld) 70.3 % . [facility] No Panel InformationOrdered By: Sapna Angulo on 01-03-2023 D-Dimer Quantitative (PE/DVT) 374 ng/mL 0-243 [facility] Comment on above: The reference range for [...] conditions. Estimated GFR (CKD-EPI) > 60.0 mL/Min [facility] Creatinine Clearance (Chem 68.76 [facility] Nucleated erythrocytes [Pres ence] in Blood by Automated countOrdered By: Sapna Angulo on 01-03-2023 Nucleated RBC Auto Ql (Bld) 0.2 /100{WBC} 0-0.5 [facility] Platelet mean volume Auto (B ld) [Entitic vol]Ordered By: Sapna Angulo on 01-03-2023 Platelet mean volume (Bld) [Entitic vol] 9.6 fL 6.6-10.1 [facility] Platelet poor plasma interna tional normalized ratio (INR) by coagulation assay (relatOrdered By: Sapna Angulo on 01-03-2023 INR Coag (PPP) [Relative time] 1.0 {INR} [facility] Comment on above: INR Therapeutic Rang e [...] 01-03-2023 Platelets (Bld) [#/Vol] 148 10*3/uL 150-450 [facility] Potassium [Moles/volume] in Serum or PlasmaOrdered By: Sapna Angulo on 01-03-2023 Potassium [Moles/Vol] 4.0 mmol/L 3.5-5.1 [facility] Protein [Mass/volume] in Ser um or PlasmaOrdered By: Sapna Angulo on 01-03-2023 Protein [Mass/Vol] 7.4 g/dL 6.4-8.9 [facility] RBC Auto (Bld) [#/Vol]Ordere d By: Sapna Angulo on 01-03-2023 RBC (Bld) [#/Vol] 4.41 10*6/uL 3.90-5.60 [facility] Serum or plasma albumin/glob ulin mass ratioOrdered By: Sapna Angulo on 01-03-2023 Albumin/Globulin [Mass ratio] 1.3 {ratio} [facility] Serum or plasma anion gap de terminationOrdered By: Sapna Angulo on 01-03-2023 Anion gap [Moles/Vol] 11.2 mmol/L 6.0-15.0 [facility] Serum or plasma non-glucuron idated bilirubin measurement (mass/volume)Ordered By: Sapna Angulo on 01-03-2023 Bilirubin.indirect [Mass/Vol] 0.7 mg/dL [facility] Sodium [Moles/volume] in Ser um or PlasmaOrdered By: Sapna Angulo on 01-03-2023 Sodium [Moles/Vol] 138 mmol/L 136-145 [facility] Troponin I.cardiac [Mass/vol ume] in Serum or Plasma by Detection limit <= 0.01 ng/Ordered By: Sapna Angulo on 01-03-2023 Troponin I.cardiac DL <= 0.01 ng/mL [Mass/Vol] 11.0 pg/mL 0.0-20.0 [facility] Urea nitrogen [Mass/volume] in Serum or PlasmaOrdered By: Sapna Angulo on 01-03-2023 Urea nitrogen [Mass/Vol] 24 mg/dL 7-25 [facility] WBC Auto (Bld) [#/Vol]Ordere d By: Sapna Angulo on 01-03-2023 WBC (Bld) [#/Vol] 5.6 10*3/uL 4.1-10.5 [facility] Comprehensive metabolic 2000 panelon 11-25-2022 Albumin [Mass/Vol] 3.9 g/dL 3.9 - 4.9 g/dL [facility] ALP [Catalytic activity/Vol] 58 U/L 38 - 113 U/L [facility] ALT [Catalytic activity/Vol] 248 U/L High 10 - 54 U/L [facility] Anion gap [Moles/Vol] 8 mmol/L Low 9 - 18 mmol/L [facility] AST [Catalytic activity/Vol] 142 U/L High 14 - 40 U/L [facility] Bilirubin [Mass/Vol] 1.1 mg/dL 0.2 - 1.3 mg/dL [facility] Calcium [Mass/Vol] 9.7 mg/dL 8.5 - 10.2 mg/dL [facility] Chloride [Moles/Vol] 96 mmol/L Low 97 - 105 mmol/L [facility] CO2 [Moles/Vol] 26 mmol/L 22 - 30 mmol/L [facility] Creatinine [Mass/Vol] 0.97 mg/dL 0.73 - 1.22 mg/dL [facility] Estimated Glomerular Filtration Rate 87 mL/min/1.73m >=60 mL/min/1.73m [facility] Glucose [Mass/Vol] 159 mg/dL High 74 - 99 mg/dL [facility] Potassium [Moles/Vol] 3.6 mmol/L Low 3.7 - 5.1 mmol/L [facility] Protein [Mass/Vol] 7.5 g/dL 6.3 - 8.0 g/dL [facility] Sodium [Moles/Vol] 130 mmol/L Low 136 - 144 mmol/L [facility] Urea nitrogen [Mass/Vol] 15 mg/dL 9 - 24 mg/dL [facility] LD LACTATE DEHYDROon 11-11- 023 LDH [Catalytic activity/Vol] 291 U/L High 135 - 225 U/L [facility] CBC W Auto Differential pane l (Bld)on 10-31-2022 Basophils (Bld) [#/Vol] <0.11 k/uL [facility] Basophils/100 WBC (Bld) 0.4 % [facility] Differential cell count method Nom (Bld) Auto [facility] Eosinophils (Bld) [#/Vol] 0.17 10*3/uL <0.46 k/uL [facility] Eosinophils/100 WBC (Bld) 3.7 % [facility] Erythrocyte distribution width (RBC) [Ratio] 14.7 % 11.5 - 15.0 % [facility] Hematocrit (Bld) [Volume fraction] 32.0 % Low 39.0 - 51.0 % [facility] Hemoglobin (Bld) [Mass/Vol] 10.8 g/dL Low 13.0 - 17.0 g/dL [facility] Immature granulocytes (Bld) [#/Vol] <0.10 k/uL [facility] Immature granulocytes/100 WBC (Bld) 0.2 % [facility] Lymphocytes (Bld) [#/Vol] 0.59 10*3/uL Low 1.00 - 4.00 k/uL [facility] Lymphocytes/100 WBC (Bld) 12.9 % [facility] MCH (RBC) [Entitic mass] 30.3 pg 26.0 - 34.0 pg [facility] MCHC (RBC) [Mass/Vol] 33.8 g/dL 30.5 - 36.0 g/dL [facility] MCV (RBC) [Entitic vol] 89.6 fL 80.0 - 100.0 fL [facility] Monocytes (Bld) [#/Vol] 0.87 10*3/uL High <0.87 k/uL [facility] Monocytes/100 WBC (Bld) 19.0 % [facility] Neutrophils (Bld) [#/Vol] 2.92 10*3/uL 1.45 - 7.50 k/uL [facility] Neutrophils/100 WBC (Bld) 63.8 % [facility] Nucleated RBC (Bld) [#/Vol] <0.01 k/uL [facility] Nucleated RBC/100 WBC (Bld) [Ratio] 0.0 /100 WBC [facility] Platelet mean volume (Bld) [Entitic vol] 10.2 fL 9.0 - 12.7 fL [facility] Platelets (Bld) [#/Vol] 247 10*3/uL 150 - 400 k/uL [facility] RBC (Bld) [#/Vol] 3.57 10*6/uL Low 4.20 - 6.00 m/uL [facility] WBC (Bld) [#/Vol] 4.58 10*3/uL 3.70 - 11.00 k/u L [facility] Comprehensive metabolic 2000 panelon 10-31-2022 Albumin [Mass/Vol] 4.1 g/dL 3.9 - 4.9 g/dL [facility] ALP [Catalytic activity/Vol] 54 U/L 38 - 113 U/L [facility] ALT [Catalytic activity/Vol] 17 U/L 10 - 54 U/L [facility] Anion gap [Moles/Vol] 8 mmol/L Low 9 - 18 mmol/L [facility] AST [Catalytic activity/Vol] 21 U/L 14 - 40 U/L [facility] Bilirubin [Mass/Vol] 0.7 mg/dL 0.2 - 1.3 mg/dL [facility] Calcium [Mass/Vol] 9.4 mg/dL 8.5 - 10.2 mg/dL [facility] Chloride [Moles/Vol] 100 mmol/L 97 - 105 mmol/L [facility] CO2 [Moles/Vol] 25 mmol/L 22 - 30 mmol/L [facility] Creatinine [Mass/Vol] 1.08 mg/dL 0.73 - 1.22 mg/dL [facility] Estimated Glomerular Filtration Rate 76 mL/min/1.73m >=60 mL/min/1.73m [facility] Glucose [Mass/Vol] 97 mg/dL 74 - 99 mg/dL [facility] Potassium [Moles/Vol] 3.7 mmol/L 3.7 - 5.1 mmol/L [facility] Protein [Mass/Vol] 7.1 g/dL 6.3 - 8.0 g/dL [facility] Sodium [Moles/Vol] 133 mmol/L Low 136 - 144 mmol/L [facility] Urea nitrogen [Mass/Vol] 20 mg/dL 9 - 24 mg/dL [facility] Orders Onlyon 10-23-2022 Orders Only [id number] Cristal Gu 1955 M Date Provider Department Center 10/23/2022 [facility]O J[facility] No family history on file Normal [facility] CBC W Auto Differential pane l (Bld)on 10-21-2022 Basophils (Bld) [#/Vol] 0.03 10*3/uL <0.11 k/uL [facility] Basophils/100 WBC (Bld) 0.5 % [facility] Differential cell count method Nom (Bld) Auto [facility] Eosinophils (Bld) [#/Vol] 0.19 10*3/uL <0.46 k/uL [facility] Eosinophils/100 WBC (Bld) 2.9 % [facility] Erythrocyte distribution width (RBC) [Ratio] 15.0 % 11.5 - 15.0 % [facility] Hematocrit (Bld) [Volume fraction] 39.7 % 39.0 - 51.0 % [facility] Hemoglobin (Bld) [Mass/Vol] 13.3 g/dL 13.0 - 17.0 g/dL [facility] Immature granulocytes (Bld) [#/Vol] 0.05 10*3/uL <0.10 k/uL [facility] Immature granulocytes/100 WBC (Bld) 0.8 % [facility] Lymphocytes (Bld) [#/Vol] 0.95 10*3/uL Low 1.00 - 4.00 k/uL [facility] Lymphocytes/100 WBC (Bld) 14.6 % [facility] MCH (RBC) [Entitic mass] 30.6 pg 26.0 - 34.0 pg [facility] MCHC (RBC) [Mass/Vol] 33.5 g/dL 30.5 - 36.0 g/dL [facility] MCV (RBC) [Entitic vol] 91.3 fL 80.0 - 100.0 fL [facility] Monocytes (Bld) [#/Vol] 0.62 10*3/uL <0.87 k/uL [facility] Monocytes/100 WBC (Bld) 9.5 % [facility] Neutrophils (Bld) [#/Vol] 4.66 10*3/uL 1.45 - 7.50 k/uL [facility] Neutrophils/100 WBC (Bld) 71.7 % [facility] Nucleated RBC (Bld) [#/Vol] <0.01 k/uL [facility] Nucleated RBC/100 WBC (Bld) [Ratio] 0.0 /100 WBC [facility] Platelet mean volume (Bld) [Entitic vol] 10.1 fL 9.0 - 12.7 fL [facility] Platelets (Bld) [#/Vol] 237 10*3/uL 150 - 400 k/uL [facility] RBC (Bld) [#/Vol] 4.35 10*6/uL 4.20 - 6.00 m/uL [facility] WBC (Bld) [#/Vol] 6.50 10*3/uL 3.70 - 11.00 k/u L [facility] Comprehensive metabolic 2000 panelon 10-21-2022 Albumin [Mass/Vol] 4.4 g/dL 3.9 - 4.9 g/dL [facility] ALP [Catalytic activity/Vol] 55 U/L 38 - 113 U/L [facility] ALT [Catalytic activity/Vol] 22 U/L 10 - 54 U/L [facility] Anion gap [Moles/Vol] 10 mmol/L 9 - 18 mmol/L [facility] AST [Catalytic activity/Vol] 20 U/L 14 - 40 U/L [facility] Bilirubin [Mass/Vol] 0.7 mg/dL 0.2 - 1.3 mg/dL [facility] Calcium [Mass/Vol] 10.2 mg/dL 8.5 - 10.2 mg/dL [facility] Chloride [Moles/Vol] 98 mmol/L 97 - 105 mmol/L [facility] CO2 [Moles/Vol] 27 mmol/L 22 - 30 mmol/L [facility] Creatinine [Mass/Vol] 1.04 mg/dL 0.73 - 1.22 mg/dL [facility] Estimated Glomerular Filtration Rate 80 mL/min/1.73m >=60 mL/min/1.73m [facility] Glucose [Mass/Vol] 145 mg/dL High 74 - 99 mg/dL [facility] Potassium [Moles/Vol] 4.2 mmol/L 3.7 - 5.1 mmol/L [facility] Protein [Mass/Vol] 7.8 g/dL 6.3 - 8.0 g/dL [facility] Sodium [Moles/Vol] 135 mmol/L Low 136 - 144 mmol/L [facility] Urea nitrogen [Mass/Vol] 21 mg/dL 9 - 24 mg/dL [facility] LD LACTATE DEHYDROon 023 LDH [Catalytic activity/Vol] 183 U/L 135 - 225 U/L [facility] XR CHEST 1 Von 10-10-2022 XR [...] from a mass. Normal [facility] XR SHOULDER LT 2V or >on [...] Date: 2022-10-10 11:46 Normal [facility] LIPID PROFILEon 09-19-2022 CHOL-HDL RATIO NORM SEE BELOW Normal [facility] Comment on above: Result Comment: 3.3 - 4.4 LOW RISK 4.4 - 7.1 AVERAGE RISK 7.1 - 11.0 MODERATE RISK >11.0 HIGH RISK Performed By: #### L IPID #### [facility] [address] [address] [address] Usama Hobbs Cholesterol [Mass/Vol] 104 mg/dL Normal <=200 [facility] Comment on above: Performed By: #### L IPID #### [facility] [address] [address] [address] Usama Hobbs Cholesterol in HDL [Mass/Vol] 36 mg/dL Critically low 40-60 [facility] Comment on above: Performed By: #### L IPID #### [facility] [address] [address] [address] Usama Hobbs Cholesterol in LDL [Mass/Vol] 59.6 mg/dL Normal [facility] Comment on above: Performed By: #### L IPID #### [facility] [address] [place] [address] Dr. Usama Hobbs Cholesterol.total/Ch olesterol in HDL [Mass ratio] 2.9 {ratio} Normal [facility] Comment on above: Performed By: #### L IPID #### [facility] [address] [place] [address] Dr. Usama Hobbs HDL NORMAL > or = 60 mg/dl - LOW CARDIOVASCULAR RISK <40 mg/dl - HIGH CARDIOVASCULAR RISK Normal [facility] Comment on above: Performed By: #### L IPID #### [facility] [address] [place] [address] Dr. Usama Hobbs LDL CALC NORMAL SEE BELOW Normal [facility] Comment on above: Result Comment: <100 mg/dl OPTIMAL 100 - 129 mg/dl NEAR OR ABOVE OPTIMAL 130 - 159 mg/dl BORDERLINE HIGH 160 - 189 mg/dl HIGH >190 mg/dl VERY HIGH Performed By: #### L IPID #### [facility] [address] [place] [address] Dr. Usama Hobbs Triglyceride [Mass/Vol] 42 mg/dL Normal <=150 [facility] Comment on above: Performed By: #### L IPID #### [facility] [address] [place] [address] Dr. Usama Hobbs VLDL CALC 8.4 mg/dL Normal [facility] Comment on above: Performed By: #### L IPID #### [facility] [address] [place] [address] Dr. Usama Hobbs Office Visiton 09-18-2022 Follow-up visit [id number] Cristal Gu Sr. 1955 M Date Provider Department Center 09/18/2022 JADENSABRINAJONATHAN STRINGER [facility] Joseph Reddy No family history on file Level of Service:65226 [place] OFFICE/OUTPATIENT ESTABLISHED MOD MDM 30-39 MIN (GC) Reason for Visit and Comments: Coronary Artery Disease [187] Peripheral Vascular Disease [458] Carotid Stenosis [Other] Hypertension [703360] Normal [facility] CBC W Auto Differential pane l (Bld)on 06-25-2022 Basophils (Bld) [#/Vol] <0.11 k/uL [facility] Basophils/100 WBC (Bld) 0.4 % [facility] Differential cell count method Nom (Bld) Auto [facility] Eosinophils (Bld) [#/Vol] 0.03 10*3/uL <0.46 k/uL [facility] Eosinophils/100 WBC (Bld) 0.6 % [facility] Erythrocyte distribution width (RBC) [Ratio] 14.1 % 11.5 - 15.0 % [facility] Hematocrit (Bld) [Volume fraction] 34.9 % Low 39.0 - 51.0 % [facility] Hemoglobin (Bld) [Mass/Vol] 12.5 g/dL Low 13.0 - 17.0 g/dL [facility] Immature granulocytes (Bld) [#/Vol] 0.03 10*3/uL <0.10 k/uL [facility] Immature granulocytes/100 WBC (Bld) 0.6 % [facility] Lymphocytes (Bld) [#/Vol] 0.75 10*3/uL Low 1.00 - 4.00 k/uL [facility] Lymphocytes/100 WBC (Bld) 14.0 % [facility] MCH (RBC) [Entitic mass] 32.9 pg 26.0 - 34.0 pg [facility] MCHC (RBC) [Mass/Vol] 35.8 g/dL 30.5 - 36.0 g/dL [facility] MCV (RBC) [Entitic vol] 91.8 fL 80.0 - 100.0 fL [facility] Monocytes (Bld) [#/Vol] 0.62 10*3/uL <0.87 k/uL [facility] Monocytes/100 WBC (Bld) 11.6 % [facility] Neutrophils (Bld) [#/Vol] 3.89 10*3/uL 1.45 - 7.50 k/uL [facility] Neutrophils/100 WBC (Bld) 72.8 % [facility] Nucleated RBC (Bld) [#/Vol] <0.01 k/uL [facility] Nucleated RBC/100 WBC (Bld) [Ratio] 0.0 /100 WBC [facility] Platelet mean volume (Bld) [Entitic vol] 9.8 fL 9.0 - 12.7 fL [facility] Platelets (Bld) [#/Vol] 208 10*3/uL 150 - 400 k/uL [facility] RBC (Bld) [#/Vol] 3.80 10*6/uL Low 4.20 - 6.00 m/uL [facility] WBC (Bld) [#/Vol] 5.34 10*3/uL 3.70 - 11.00 k/u L [facility] Comprehensive metabolic 2000 panelon 06-25-2022 Albumin [Mass/Vol] 4.4 g/dL 3.9 - 4.9 g/dL [facility] ALP [Catalytic activity/Vol] 72 U/L 38 - 113 U/L [facility] ALT [Catalytic activity/Vol] 27 U/L 10 - 54 U/L [facility] Anion gap [Moles/Vol] 12 mmol/L 9 - 18 mmol/L [facility] AST [Catalytic activity/Vol] 32 U/L 14 - 40 U/L [facility] Bilirubin [Mass/Vol] 0.7 mg/dL 0.2 - 1.3 mg/dL [facility] Calcium [Mass/Vol] 9.6 mg/dL 8.5 - 10.2 mg/dL [facility] Chloride [Moles/Vol] 97 mmol/L 97 - 105 mmol/L [facility] CO2 [Moles/Vol] 26 mmol/L 22 - 30 mmol/L [facility] Creatinine [Mass/Vol] 0.75 mg/dL 0.73 - 1.22 mg/dL [facility] Estimated Glomerular Filtration Rate 100 mL/min/1.73m >=60 mL/min/1.73m [facility] Glucose [Mass/Vol] 111 mg/dL High 74 - 99 mg/dL [facility] Potassium [Moles/Vol] 3.8 mmol/L 3.7 - 5.1 mmol/L [facility] Protein [Mass/Vol] 7.2 g/dL 6.3 - 8.0 g/dL [facility] Sodium [Moles/Vol] 135 mmol/L Low 136 - 144 mmol/L [facility] Urea nitrogen [Mass/Vol] 11 mg/dL 9 - 24 mg/dL [facility] CT CHEST W IVCONon [facility] XR CHEST 2V FRONTAL/LATon [facility] MRI LSPINE WO W CONon 2021 [...] by: BRANDON HENRY Date: 2022-05-23 19:51 Normal [facility] XR LSPINE MIN 4 VIEWSon 04-20 XR [...] by: TRUDY GUTIERREZ Date: 2022-05-01 17:27 Normal [facility] BONE [place] WH BODYon [place] BONE [facility] BODY EXAMINATION: [place] BONE [facility] BODY HISTORY: Primary malignant neoplasm of [...] by: BRANDON HENRY Date: 2022-04-12 21:44 Normal [facility] US CAROTID ART BILon US CAROTID ART [...] Date: 2022-03-22 17:14 Normal [facility] PRBC LEUKOREDUCEDon 02-11-20 ABO and Rh group Nom (Bld) Cross Match Result Compatible Unit Blood Type A Pos Unit Number [id number] Status Information Transfused Product ID Red Blood Cells Product Code [id number] Cross Match Result Compatible Unit Blood Type A Pos Unit Number [id number] Status Information Transfused Product ID Red Blood Cells Product Code [id number] Normal [facility] Comment on above: Performed By: #### P SAD #### [facility] [address] [place] [address] Dr. Usama Hobbs ABO RH RETYPEon 02-08-2022 ABO and Rh group Nom (Bld) DONE Normal [facility] Comment on above: Performed By: #### R ETYPE #### [facility] [address] [place] [address] Dr. Usama Hobbs LD LACTATE DEHYDROon 022 LDH [Catalytic activity/Vol] 186 U/L 135 - 225 U/L [facility] TYPE AND SCREENon 02-08-2022 TYPE AND SCREEN Negative Normal [facility] Comment on above: Performed By: #### P SAD #### [facility] [address] [place] [address] Dr. Usama Hobbs HEMOGRAM AND PLATELon 2021 Hematocrit (Bld) [Volume fraction] 21.0 % Critically low 42.0-54.0 [facility] Comment on above: Result Comment: dr haider marcos transfusionT&S ordered Performed By: #### B BARK TANNER, CMP #### [facility] [address] [place] [address] Dr. Usama Hobbs Hemoglobin (Bld) [Mass/Vol] 7.3 g/dL Critically low 14.0-18.0 [facility] Comment on above: Performed By: #### B BARK TANNER, CMP #### [facility] [address] [place] [address] Dr. Usama Hobbs MCH (RBC) [Entitic mass] 31.7 pg Normal 25.9-34.0 [facility] Comment on above: Performed By: #### B BARK TANNER, CMP #### [facility] [address] [place] [address] Dr. Usama Hobbs MCHC (RBC) [Mass/Vol] 34.8 g/dL Normal 29.9-35.2 [facility] Comment on above: Performed By: #### B BARK TANNER, CMP #### [facility] [address] [place] [address] Dr. Usama Hobbs MCV (RBC) [Entitic vol] 91.3 fL Normal 80.0-94.0 [facility] Comment on above: Performed By: #### B BARK TANNER, CMP #### [facility] [address] [place] [address] Dr. Uasma Hobbs PLT 89 103/ul Critically low 150-450 [facility] Comment on above: Performed By: #### B BARK TANNER, CMP #### [facility] [address] [place] [address] Dr. Usama Hobbs RBC 2.30 106/ul Critically low 4.70-6.10 [facility] Comment on above: Performed By: #### B BARK TANNER, CMP #### [facility] [address] [place] [address] Dr. Usama Hobbs WBC 2.0 103/ul Critically low 4.0-11.0 [facility] Comment on above: Performed By: #### B BARK TANNER, CMP #### [facility] [address] [place] [address] Dr. Usama Hobbs RETIC COUNTon 02-07-2022 Reticulocytes (Bld) [#/Vol] 0.55474 10*3/uL 0.018 - 0.100 M/uL [facility] Reticulocytes (Bld) [#/Vol]o n 02-07-2022 Reticulocytes/100 RBC (Bld) 2.3 % High 0.4 - 2.0 % [facility] XR CHEST 2V FRONTAL/LATon [facility] BNPon 12-07-2021 Natriuretic peptide B (Bld) [Mass/Vol] 140.0 pg/mL Normal <=900.0 [facility] Comment on above: Performed By: #### P SAD #### [facility] [address] [place] [address] Dr. Usama Hobbs CBC AUTO DIFFon 12-07-2021 BASO # 0.0 103/ul Normal 0.0-0.1 [facility] Comment on above: Performed By: #### B BARK TANNER, CMP #### [facility] [address] [place] [address] Dr. Usama Hobbs Basophils/100 WBC (Bld) 0.2 % Normal 0.2-2.0 [facility] Comment on above: Performed By: #### B BARK TANNER, CMP #### [facility] [address] [place] [address] Dr. Usama Hobbs EO # 0.1 103/ul Normal 0.0-0.7 [facility] Comment on above: Performed By: #### B BARK TANNER, CMP #### [facility] [address] [place] [address] Dr. Usama Hobbs Eosinophils/100 WBC (Bld) 2.0 % Normal 0.9-7.0 [facility] Comment on above: Performed By: #### B BARK TANNER, CMP #### [facility] [address] [place] [address] Dr. Usama Hobbs Erythrocyte distribution width (RBC) [Ratio] 12.9 % Normal 11.0-15.0 [facility] Comment on above: Performed By: #### B BARK TANNER, CMP #### [facility] [address] [place] [address] Dr. Usama Hobbs Hematocrit (Bld) [Volume fraction] 32.6 % Critically low 42.0-54.0 [facility] Comment on above: Performed By: #### B BARK TANNER, CMP #### [facility] [address] [place] [address] Dr. Usama Hobbs Hemoglobin (Bld) [Mass/Vol] 11.0 g/dL Critically low 14.0-18.0 [facility] Comment on above: Performed By: #### B BARK TANNER, CMP #### [facility] [address] [place], [place] [id number] Dr. Usama Hobbs IG # 0.02 10e3/ul Normal 0.00-0.03 [facility] Comment on above: Performed By: #### B BARK TANNER, CMP #### [facility] [address] [place] [address] Dr. Usama Hobbs IG % 0.4 % Normal 0.0-0.5 [facility] Comment on above: Performed By: #### B BARK TANNER, CMP #### [facility] [address] [place] [address] Dr. Usama Hobbs LYMPH # 0.6 103/ul Critically low 1.2-3.8 [facility] Comment on above: Performed By: #### B BARK TANNER, CMP #### [facility] [address] [place] [address] Dr. Usama Hobbs Lymphocytes/100 WBC (Bld) 12.9 % Critically low 20.5-60.0 [facility] Comment on above: Performed By: #### B BARK TANNER, CMP #### [facility] [address] [place] [address] Dr. Usama Hobbs MANUAL DIFF REQ NO Normal [facility] Comment on above: Performed By: #### B BARK TANNER, CMP #### [facility] [address] [place] [address] Dr. Usama Hobbs MCH (RBC) [Entitic mass] 30.1 pg Normal 25.9-34.0 [facility] Comment on above: Performed By: #### B BARK TANNER, CMP #### [facility] [address] [place] [address] Dr. Usama Hobbs MCHC (RBC) [Mass/Vol] 33.7 g/dL Normal 29.9-35.2 [facility] Comment on above: Performed By: #### B BARK TANNER, CMP #### [facility] [address] [place] [address] Dr. Usama Hobbs MCV (RBC) [Entitic vol] 89.1 fL Normal 80.0-94.0 [facility] Comment on above: Performed By: #### B BARK TANNER, CMP #### [facility] [address] [place] [address] Dr. Usama Hobbs MONO # 0.3 103/ul Normal 0.3-0.8 [facility] Comment on above: Performed By: #### B BARK TANNER, CMP #### [facility] [address] [place] [address] Dr. Usama Hobbs Monocytes/100 WBC (Bld) 5.1 % Normal 1.7-12.0 [facility] Comment on above: Performed By: #### B BARK TANNER, CMP #### [facility] [address] [place] [address] Dr. Usama Hobbs NEUT # 3.9 103/ul Normal 1.4-6.5 [facility] Comment on above: Performed By: #### B BARK TANNER, CMP #### [facility] [address] [place] [address] Dr. Usama Hobbs Neutrophils/100 WBC (Bld) 79.4 % Critically high 43.0-75.0 [facility] Comment on above: Performed By: #### B BARK TANNER, CMP #### [facility] [address] [place] [address] Dr. Usama Hobbs Platelet mean volume (Bld) [Entitic vol] 10.9 fL Normal 9.5-13.5 [facility] Comment on above: Performed By: #### B BARK TANNER, CMP #### [facility] [address] [place] [address] Dr. Usama Hobbs PLT 182 103/ul Normal 150-450 [facility] Comment on above: Performed By: #### B BARK TANNER, CMP #### [facility] [address] [place] [address] Dr. Usama Hobbs RBC 3.66 106/ul Critically low 4.70-6.10 [facility] Comment on above: Performed By: #### B BARK TANNER, CMP #### [facility] [address] [place] [address] Dr. Usama Hobbs WBC 4.9 103/ul Normal 4.0-11.0 [facility] Comment on above: Performed By: #### B BARK TANNER, CMP #### [facility] [address] [place] [address] Dr. Usama Hobbs TSHon 12-07-2021 TSH 1.474 uIU/mL Normal 0.358-3.740 [facility] Comment on above: Performed By: #### P SAD #### [facility] [address] [address] [address] Usama Hobbs TSH RANGE SEE BELOW Normal [facility] Comment on above: Result Comment: <0.3 4 UIU/ml HYPERTHYROID 0.34-5.60 UIU/ml EUTHYROID >5.60 UIU/ml HYPOTHYROID Performed By: #### P SAD #### [facility] [address] [address] [address] Usama Hobbs URIC ACID BLOODon 11-26-2021 Urate [Mass/Vol] 7.0 mg/dL 4.0 - 8.1 mg/dL [facility] Basic metabolic 1999 panelon 11-21-2021 Anion gap [Moles/Vol] 12 mmol/L 9 - 18 mmol/L [facility] Calcium [Mass/Vol] 9.2 mg/dL 8.5 - 10.2 mg/dL [facility] Chloride [Moles/Vol] 102 mmol/L 97 - 105 mmol/L [facility] CO2 [Moles/Vol] 25 mmol/L 22 - 30 mmol/L [facility] Creatinine [Mass/Vol] 1.86 mg/dL High 0.73 - 1.22 mg/dL [facility] Estimated Glomerular Filtration Rate 40 mL/min/1.73m Low >=60 mL/min/1.73m [facility] Glucose [Mass/Vol] 87 mg/dL 74 - 99 mg/dL [facility] Potassium [Moles/Vol] 3.7 mmol/L 3.7 - 5.1 mmol/L [facility] Sodium [Moles/Vol] 139 mmol/L 136 - 144 mmol/L [facility] Urea nitrogen [Mass/Vol] 29 mg/dL High 9 - 24 mg/dL [facility] Basic metabolic 1999 panelon 11-19-2021 Anion gap [Moles/Vol] 12 mmol/L 9 - 18 mmol/L [facility] Calcium [Mass/Vol] 9.2 mg/dL 8.5 - 10.2 mg/dL [facility] Chloride [Moles/Vol] 104 mmol/L 97 - 105 mmol/L [facility] CO2 [Moles/Vol] 24 mmol/L 22 - 30 mmol/L [facility] Creatinine [Mass/Vol] 2.09 mg/dL High 0.73 - 1.22 mg/dL [facility] Estimated Glomerular Filtration Rate 35 mL/min/1.73m Low >=60 mL/min/1.73m [facility] Glucose [Mass/Vol] 79 mg/dL 74 - 99 mg/dL [facility] Potassium [Moles/Vol] 3.6 mmol/L Low 3.7 - 5.1 mmol/L [facility] Sodium [Moles/Vol] 140 mmol/L 136 - 144 mmol/L [facility] Urea nitrogen [Mass/Vol] 27 mg/dL High 9 - 24 mg/dL [facility] BNPon 11-18-2021 Natriuretic peptide B (Bld) [Mass/Vol] 2644.0 pg/mL Critically high <=900.0 [facility] Comment on above: Performed By: #### B BARK TANNER, CMP #### [facility] [address] [place] [address] Dr. Usama Hobbs CBC W MANUAL DIFFon 11-19-19 22 ATYPICAL LYMPH # Normal [facility] Comment on above: Performed By: #### C LUIS #### [facility] [address] [place] [address] Dr. Usama Hobbs ATYPICAL LYMPH % Normal [facility] Comment on above: Performed By: #### C LUIS #### [facility] [address] [place] [address] Dr. Usama Hobbs BAND # 0.0 103/ul Normal 0.0-0.3 [facility] Comment on above: Performed By: #### C YEMAN #### [facility] [address] [place] [address] Dr. Usama Hobbs BAND % 2 % Normal 0-5 [facility] Comment on above: Performed By: #### C LUIS #### [facility] [address] [place] [address] Dr. Usama Hobbs BASOM # 0.00 103/ul Normal 0.00-0.10 [facility] Comment on above: Performed By: #### C BCANATOLY #### [facility] [address] [place] [address] Dr. Usama Hobbs BASOM % 0.0 % Critically low 0.2-2.0 [facility] Comment on above: Performed By: #### C BCANATOLY #### [facility] [address] [place] [address] Dr. Usama Hobbs BLAST # Normal [facility] Comment on above: Performed By: #### C LUIS #### [facility] [address] [place] [address] Dr. Usama Hobbs BLAST % Normal [facility] Comment on above: Performed By: #### C LUIS #### [facility] [address] [place] [address] Dr. Usama Hobbs CORRECTED WBC Normal 4.0-11.0 [facility] Comment on above: Performed By: #### C LUIS #### [facility] [address] [place] [address] Dr. Usama Hobbs EOS # 0.10 103/ul Normal 0.00-0.70 [facility] Comment on above: Performed By: #### C LUIS #### [facility] [address] [place] [address] Dr. Usama Hobbs EOS% 5.0 % Normal 0.9-7.0 [facility] Comment on above: Performed By: #### C LUIS #### [facility] [address] [place] [address] Dr. Usama Hobbs HCT 28.8 % Critically low 42.0-54.0 [facility] Comment on above: Performed By: #### C LUIS #### [facility] [address] [place] [address] Dr. Uasma Hobbs HGB 9.4 g/dl Critically low 14.0-18.0 [facility] Comment on above: Performed By: #### C LUIS #### [facility] [address] [place] [address] Dr. Usama Hobbs LYMPHM # 0.71 103/ul Critically low 1.20-3.80 [facility] Comment on above: Performed By: #### C LUIS #### [facility] [address] [place] [address] Dr. Usama Hobbs LYMPHM% 34.0 % Normal 20.5-60.0 [facility] Comment on above: Performed By: #### C LUIS #### [facility] [address] [place] [address] Dr. Usama Hobbs MCH 30.0 pg Normal 25.9-34.0 [facility] Comment on above: Performed By: #### C LUIS #### [facility] [address] [place] [address] Dr. Usama Hobbs MCHC 32.6 g/dl Normal 29.9-35.2 [facility] Comment on above: Performed By: #### C LUIS #### [facility] [address] [place] [address] Dr. Usama Hobbs MCV 92.0 fL Normal 80.0-94.0 [facility] Comment on above: Performed By: #### Kyara SMITH #### [facility] [address] [place] [address] Dr. Usama Hobbs METAMYELOCYTE # Normal [facility] Comment on above: Performed By: #### C LUIS #### [facility] [address] [place] [address] Dr. Usama Hobbs METAMYELOCYTE % Normal [facility] Comment on above: Performed By: #### Kyara SMITH #### [facility] [address] [place] [address] Dr. Usama Hobbs MONOM# 0.10 103/ul Critically low 0.30-0.80 [facility] Comment on above: Performed By: #### C LUIS #### [facility] [address] [place] [address] Dr. Usama Hobbs MONOM% 5.0 % Normal 1.7-12.0 [facility] Comment on above: Performed By: #### C LUIS #### [facility] [address] [place] [address] Dr. Usama Hobbs MPV 10.7 fL Normal 9.5-13.5 [facility] Comment on above: Performed By: #### C LUIS #### [facility] [address] [place] [address] Dr. Usama Hobbs MYELOCYTE # Normal [facility] Comment on above: Performed By: #### C LUIS #### [facility] [address] [place] [address] Dr. Usama Hobbs MYELOCYTE % Normal [facility] Comment on above: Performed By: #### C LUIS #### [facility] [address] [place] [address] Dr. Usama Hobbs NRBC Normal [facility] Comment on above: Performed By: #### C LUIS #### [facility] [address] [place] [address] Dr. Usama Hobbs PLT 149 103/ul Critically low 150-450 [facility] Comment on above: Performed By: #### C LUIS #### [facility] [address] [place] [address] Dr. Usama Hobbs RBC 3.13 106/ul Critically low 4.70-6.10 [facility] Comment on above: Performed By: #### C LUIS #### [facility] [address] [place] [address] Dr. Usama Hobbs RDW 12.3 % Normal 11.0-15.0 [facility] Comment on above: Performed By: #### C LUIS #### [facility] [address] [place] [address] Dr. Usama Hobbs SEG # 1.13 103/ul Critically low 1.40-6.50 [facility] Comment on above: Performed By: #### C LUIS #### [facility] [address] [place] [address] Dr. Usama Hobbs SEG % 54.0 % Normal 43.0-75.0 [facility] Comment on above: Performed By: #### C LUIS #### [facility] [address] [place] [address] Dr. Usama Hobbs WBC 2.1 103/ul Critically low 4.0-11.0 [facility] Comment on above: Performed By: #### C BCMAN #### [facility] [address] [place] [address] Dr. Usama Hobbs CULTURE SPUTUMon 11-18-2021 CULTURE SPUTUM Culture Observations: Normal respiratory callie also seen Isolate 1 Adwoa Albicans Growth of Normal [facility] Comment on above: Performed By: #### P SAD #### [facility] [address] [place] [address] Dr. Usama Hobbs PROF 14(COMP METB)on 022 Albumin [Mass/Vol] 2.8 g/dL Critically low 3.4-5.0 Th e [facility] Comment on above: Performed By: #### B BARK TANNER, CMP #### [facility] [address] [place] [address] Dr. Usama Hobbs Albumin/Globulin [Mass ratio] 0.8 {ratio} Normal [facility] Comment on above: Performed By: #### B BARK TANNER, CMP #### [facility] [address] [place] [address] Dr. Usama Hobbs ALP [Catalytic activity/Vol] 56 U/L Normal 46-116 [facility] Comment on above: Performed By: #### B BARK TANNER, CMP #### [facility] [address] [place] [address] Dr. Usama Hobbs ALT [Catalytic activity/Vol] 22 U/L Normal 16-63 [facility] Comment on above: Performed By: #### B BARK TANNER, CMP #### [facility] [address] [place] [address] Dr. Usama Hobbs Anion gap [Moles/Vol] 14.5 mmol/L Normal [facility] Comment on above: Performed By: #### B BARK TANNER, CMP #### [facility] [address] [place] [address] Dr. Usama Hobbs AST [Catalytic activity/Vol] 17 U/L Normal 15-37 [facility] Comment on above: Performed By: #### B BARK TANNER, CMP #### [facility] [address] [place] [address] Dr. Usama Hobbs Bilirubin [Mass/Vol] 0.4 mg/dL Normal 0.2-1.0 [facility] Comment on above: Performed By: #### B BARK TANNER, CMP #### [facility] [address] [place] [address] Dr. Usama Hobbs Calcium [Mass/Vol] 7.8 mg/dL Critically low 8.5-10.1 Th e [facility] Comment on above: Performed By: #### B BARK TANNER, CMP #### [facility] [address] [place] [address] Dr. Usama Hobbs Chloride [Moles/Vol] 104 mmol/L Normal 98-107 [facility] Comment on above: Performed By: #### B BARK TANNER, CMP #### [facility] [address] [place] [address] Dr. Usama Hobbs CO2 [Moles/Vol] 25.0 mmol/L Normal 21.0-32.0 [facility] Comment on above: Performed By: #### B BARK TANNER, CMP #### [facility] [address] [place] [address] Dr. Usama Hobbs Creatinine [Mass/Vol] 1.97 mg/dL Critically high 0.70-1.30 [facility] Comment on above: Performed By: #### B BARK TANNER, CMP #### [facility] [address] [place] [address] Dr. Usama Hobbs EGFR-AF BELARUSIAN 42 mL/min/1.73m2 Critically low >=60 [facility] Comment on above: Performed By: #### B BARK TANNER, CMP #### [facility] [address] [place] [address] Dr. Usama Hobbs EGFR-NON AF BELARUSIAN 34 mL/min/1.73m2 Critically low >=60 [facility] Comment on above: Performed By: #### B BARK TANNER, CMP #### [facility] [address] [place] [address] Dr. Usama Hobbs Globulin (S) [Mass/Vol] 3.3 g/dL Normal [facility] Comment on above: Performed By: #### B BARK TANNER, CMP #### [facility] [address] [place] [address] Dr. Usama Hobbs Glucose [Mass/Vol] 91 mg/dL Normal 74-106 [facility] Comment on above: Performed By: #### B BARK TANNER, CMP #### [facility] [address] [place] [address] Dr. Usama Hobbs Potassium [Moles/Vol] 3.5 mmol/L Normal 3.5-5.1 [facility] Comment on above: Performed By: #### B BARK TANNER, CMP #### [facility] [address] [place] [address] Dr. Usama Hobbs Protein [Mass/Vol] 6.1 g/dL Normal 6.1-8.2 [facility] Comment on above: Performed By: #### B BARK TANNER, CMP #### [facility] [address] [place] [address] Dr. Usama Hobbs Sodium [Moles/Vol] 140 mmol/L Normal 136-145 [facility] Comment on above: Performed By: #### B BARK TANNER, CMP #### [facility] [address] [place] [address] Dr. Usama Hobbs Urea nitrogen [Mass/Vol] 18.0 mg/dL Normal 7.0-18.0 [facility] Comment on above: Performed By: #### B BARK TANNER, CMP #### [facility] [address] [place] [address] Dr. Usama Hobbs Urea nitrogen/Creatinine [Mass ratio] 9.1 mg/mg Normal [facility] Comment on above: Performed By: #### B BARK TANNER, CMP #### [facility] [address] [place] [address] Dr. Usama Hobbs T3, TOTAL (TRIIODOTHYRONINE) on 11-18-2021 T3, TOTAL 101 ng/dL Normal 71-180 [facility] Comment on above: Performed By: #### T 3TOTAL #### [facility] [address] [place] [address] Dr. Usama Hobbs BNPon 11-17-2021 Natriuretic peptide B (Bld) [Mass/Vol] 6047.0 pg/mL Critically high <=900.0 [facility] Comment on above: Performed By: #### C MP, BNP #### [facility] [address] [address] [address] Usama Hobbs CBC AUTO DIFFon 11-17-2021 BASO # 0.0 103/ul Normal 0.0-0.1 [facility] Comment on above: Performed By: #### C BC #### [facility] [address] [address] [address] Usama Hobbs Basophils/100 WBC (Bld) 0.4 % Normal 0.2-2.0 [facility] Comment on above: Performed By: #### C BC #### [facility] [address] [address] [address] Usama Hobbs EO # 0.1 103/ul Normal 0.0-0.7 [facility] Comment on above: Performed By: #### C BC #### [facility] [address] [place] [address] Dr. Usama Hobbs Eosinophils/100 WBC (Bld) 6.2 % Normal 0.9-7.0 [facility] Comment on above: Performed By: #### C BC #### [facility] [address] [place] [address] Dr. Usama Hobbs Erythrocyte distribution width (RBC) [Ratio] 12.3 % Normal 11.0-15.0 [facility] Comment on above: Performed By: #### C BC #### [facility] [address] [place] [address] Dr. Usama Hobbs Hematocrit (Bld) [Volume fraction] 31.8 % Critically low 42.0-54.0 [facility] Comment on above: Performed By: #### C BC #### [facility] [address] [place] [address] Dr. Usama Hobbs Hemoglobin (Bld) [Mass/Vol] 10.5 g/dL Critically low 14.0-18.0 [facility] Comment on above: Performed By: #### C BC #### [facility] [address] [address] [address] Usama oHbbs IG # 0.01 10e3/ul Normal 0.00-0.03 [facility] Comment on above: Performed By: #### C BC #### [facility] [address] [place] [address] Dr. Usama Hobbs IG % 0.4 % Normal 0.0-0.5 [facility] Comment on above: Performed By: #### C BC #### [facility] [address] [place] [address] Dr. Usama Hobbs LYMPH # 0.6 103/ul Critically low 1.2-3.8 [facility] Comment on above: Performed By: #### C BC #### [facility] [address] [place] [address] Dr. Usama Hobbs Lymphocytes/100 WBC (Bld) 27.4 % Normal 20.5-60.0 [facility] Comment on above: Performed By: #### C BC #### [facility] [address] [place] [address] Dr. Usama Hobbs MANUAL DIFF REQ NO Normal [facility] Comment on above: Performed By: #### C BC #### [facility] [address] [place] [address] Dr. Usama Hobbs MCH (RBC) [Entitic mass] 30.3 pg Normal 25.9-34.0 [facility] Comment on above: Performed By: #### C BC #### [facility] [address] [place] [address] Dr. Usama Hobbs MCHC (RBC) [Mass/Vol] 33.0 g/dL Normal 29.9-35.2 [facility] Comment on above: Performed By: #### C BC #### [facility] [address] [place] [address] Dr. Usama Hobbs MCV (RBC) [Entitic vol] 91.6 fL Normal 80.0-94.0 [facility] Comment on above: Performed By: #### C BC #### [facility] [address] [place] [address] Dr. Usama Hobbs MONO # 0.4 103/ul Normal 0.3-0.8 [facility] Comment on above: Performed By: #### C BC #### [facility] [address] [place] [address] Dr. Usama Hobbs Monocytes/100 WBC (Bld) 17.3 % Critically high 1.7-12.0 [facility] Comment on above: Performed By: #### C BC #### [facility] [address] [place] [address] Dr. Usama Hobbs NEUT # 1.1 103/ul Critically low 1.4-6.5 [facility] Comment on above: Performed By: #### C BC #### [facility] [address] [place] [address] Dr. Usama Hobbs Neutrophils/100 WBC (Bld) 48.3 % Normal 43.0-75.0 [facility] Comment on above: Performed By: #### C BC #### [facility] [address] [place] [address] Dr. Usama Hobbs Platelet mean volume (Bld) [Entitic vol] 10.9 fL Normal 9.5-13.5 [facility] Comment on above: Performed By: #### C BC #### [facility] [address] [place] [address] Dr. Usama Hobbs PLT 174 103/ul Normal 150-450 [facility] Comment on above: Performed By: #### C BC #### [facility] [address] [place] [address] Dr. Usama Hobbs RBC 3.47 106/ul Critically low 4.70-6.10 [facility] Comment on above: Performed By: #### C BC #### [facility] [address] [place] [address] Dr. Usama Hobbs WBC 2.3 103/ul Critically low 4.0-11.0 [facility] Comment on above: Performed By: #### C BC #### [facility] [address] [place] [address] Dr. Usama Hobbs PROF 14(COMP METB)on 022 Albumin [Mass/Vol] 3.3 g/dL Critically low 3.4-5.0 [facility] Comment on above: Performed By: #### C MP, BNP #### [facility] [address] [place] [address] Dr. Usama Hobbs Albumin/Globulin [Mass ratio] 0.9 {ratio} Normal [facility] Comment on above: Performed By: #### C MP, BNP #### [facility] [address] [place] [address] Dr. Usama Hobbs ALP [Catalytic activity/Vol] 73 U/L Normal 46-116 [facility] Comment on above: Performed By: #### C MP, BNP #### [facility] [address] [place] [address] Dr. Usama Hobbs ALT [Catalytic activity/Vol] 31 U/L Normal 16-63 [facility] Comment on above: Performed By: #### C MP, BNP #### [facility] [address] [place] [address] Dr. Usama Hobbs Anion gap [Moles/Vol] 13.8 mmol/L Normal [facility] Comment on above: Performed By: #### C MP, BNP #### [facility] [address] [place] [address] Dr. Usama Hobbs AST [Catalytic activity/Vol] 22 U/L Normal 15-37 [facility] Comment on above: Performed By: #### C MP, BNP #### [facility] [address] [place] [address] Dr. Usama Hobbs Bilirubin [Mass/Vol] 0.6 mg/dL Normal 0.2-1.0 [facility] Comment on above: Performed By: #### C MP, BNP #### [facility] [address] [place] [address] Dr. Usama Hobbs Calcium [Mass/Vol] 8.3 mg/dL Critically low 8.5-10.[address] [facility] Comment on above: Performed By: #### C MP, BNP #### [facility] [address] [place] [address] Dr. Usama Hobbs Chloride [Moles/Vol] 105 mmol/L Normal 98-107 [facility] Comment on above: Performed By: #### C MP, BNP #### [facility] [address] [address] [address] Usama Hobbs CO2 [Moles/Vol] 26.1 mmol/L Normal 21.0-32.0 [facility] Comment on above: Performed By: #### C MP, BNP #### [facility] [address] [address] [address] Usama Hobbs Creatinine [Mass/Vol] 2.05 mg/dL Critically high 0.70-1.30 [facility] Comment on above: Performed By: #### C MP, BNP #### [facility] [address] [address] [address] Usama Hobbs EGFR-AF BELARUSIAN 40 mL/min/1.73m2 Critically low >=60 [facility] Comment on above: Performed By: #### C MP, BNP #### [facility] [address] [place] [address] Dr. Usama Hobbs EGFR-NON AF BELARUSIAN 33 mL/min/1.73m2 Critically low >=60 [facility] Comment on above: Performed By: #### C MP, BNP #### [facility] Laboratory [address] [place] [address] Dr. Usama Hobbs Globulin (S) [Mass/Vol] 3.7 g/dL Normal [facility] Comment on above: Performed By: #### C MP, BNP #### [facility] [address] [place] [address] Dr. Usama Hobbs Glucose [Mass/Vol] 86 mg/dL Normal 74-106 [facility] Comment on above: Performed By: #### C MP, BNP #### [facility] [address] [address] [address] Usama Hobbs Potassium [Moles/Vol] 3.9 mmol/L Normal 3.5-5.1 [facility] Comment on above: Performed By: #### C MP, BNP #### [facility] [address] [address] [address] Usama Hobbs Protein [Mass/Vol] 7.0 g/dL Normal 6.1-8.2 [facility] Comment on above: Performed By: #### C MP, BNP #### [facility] [address] [address] [address] Usama Hobbs Sodium [Moles/Vol] 141 mmol/L Normal 136-145 [facility] Comment on above: Performed By: #### C MP, BNP #### [facility] [address] [address] [address] Usama Hobbs Urea nitrogen [Mass/Vol] 21.0 mg/dL Critically high 7.0-18.0 [facility] Comment on above: Performed By: #### C MP, BNP #### [facility] [address] [address] [address] Usama Hobbs Urea nitrogen/Creatinine [Mass ratio] 10.2 mg/mg Normal [facility] Comment on above: Performed By: #### C MP, BNP #### [facility] [address] [address] [address] Usama Hobbs Basic metabolic 2000 panelon 11-16-2021 Anion gap [Moles/Vol] 16 mmol/L 9 - 18 mmol/L [facility] Calcium [Mass/Vol] 9.2 mg/dL 8.5 - 10.2 mg/dL [facility] Chloride [Moles/Vol] 102 mmol/L 97 - 105 mmol/L [facility] CO2 [Moles/Vol] 20 mmol/L Low 22 - 30 mmol/L [facility] Creatinine [Mass/Vol] 2.33 mg/dL High 0.73 - 1.22 mg/dL [facility] Estimated Glomerular Filtration Rate 30 mL/min/1.73m Low >=60 mL/min/1.73m [facility] Glucose [Mass/Vol] 78 mg/dL 74 - 99 mg/dL [facility] Potassium [Moles/Vol] 3.9 mmol/L 3.7 - 5.1 mmol/L [facility] Sodium [Moles/Vol] 138 mmol/L 136 - 144 mmol/L [facility] Urea nitrogen [Mass/Vol] 27 mg/dL High 9 - 24 mg/dL [facility] CBC W MANUAL DIFFon 11-17-19 22 ATYPICAL LYMPH # Normal [facility] Comment on above: Performed By: #### B BARK TANNER, CMP #### [facility] [address] [place] [address] Dr. Usama Hobbs ATYPICAL LYMPH % Normal [facility] Comment on above: Performed By: #### B BARK TANNER, CMP #### [facility] [address] [place] [address] Dr. Usama Hobbs BAND # 0.0 103/ul Normal 0.0-0.3 [facility] Comment on above: Performed By: #### B BARK TANNER, CMP #### [facility] [address] [place] [address] Dr. Usama Hobbs BAND % 0 % Normal 0-5 [facility] Comment on above: Performed By: #### B BARK TANNER, CMP #### [facility] [address] [place] [address] Dr. Usama Hobbs BASOM # 0.00 103/ul Normal 0.00-0.10 [facility] Comment on above: Performed By: #### B BARK TANNER, CMP #### [facility] [address] [place] [address] Dr. Usama Hobbs BASOM % 0.0 % Critically low 0.2-2.0 [facility] Comment on above: Performed By: #### B BARK TANNER, CMP #### [facility] [address] [place] [address] Dr. Usama Hobbs BLAST # Normal [facility] Comment on above: Performed By: #### B BARK TANNER, CMP #### [facility] [address] [place] [address] Dr. Usama Hobbs BLAST % Normal [facility] Comment on above: Performed By: #### B BARK TANNER, CMP #### [facility] [address] [place] [address] Dr. Usama Hobbs CORRECTED WBC Normal 4.0-11.0 [facility] Comment on above: Performed By: #### B BARK TANNER, CMP #### [facility] [address] [place] [address] Dr. Usama Hobbs EOS # 0.14 103/ul Normal 0.00-0.70 [facility] Comment on above: Performed By: #### B BARK TANNER, CMP #### [facility] [address] [address] [address] Usama Hobbs EOS% 8.0 % Critically high 0.9-7.0 [facility] Comment on above: Performed By: #### B BARK TANNER, CMP #### [facility] [address] [address] [address] Usama Hobbs HCT 28.7 % Critically low 42.0-54.0 [facility] Comment on above: Performed By: #### B BARK TANNER, CMP #### [facility] [address] [place] [address] Dr. Usama Hobbs HGB 9.7 g/dl Critically low 14.0-18.0 [facility] Comment on above: Performed By: #### B BARK TANNER, CMP #### [facility] [address] [place] [address] Dr. Usama Hobbs LYMPHM # 0.59 103/ul Critically low 1.20-3.80 [facility] Comment on above: Performed By: #### B BARK TANNER, CMP #### [facility] [address] [place] [address] Dr. Usama Hobbs LYMPHM% 33.0 % Normal 20.5-60.0 [facility] Comment on above: Performed By: #### B BARK TANNER, CMP #### [facility] [address] [place] [address] Dr. Usama Hobbs MCH 30.9 pg Normal 25.9-34.0 [facility] Comment on above: Performed By: #### B BARK TANNER, CMP #### [facility] [address] [place] [address] Dr. Usama Hobbs MCHC 33.8 g/dl Normal 29.9-35.2 [facility] Comment on above: Performed By: #### B BARK TANNER, CMP #### [facility] [address] [place] [address] Dr. Usama Hobbs MCV 91.4 fL Normal 80.0-94.0 [facility] Comment on above: Performed By: #### B BARK TANNER, CMP #### [facility] [address] [place] [address] Dr. Usama Hobbs METAMYELOCYTE # 0.0 103/ul Normal [facility] Comment on above: Performed By: #### B BARK TANNER, CMP #### [facility] [address] [place] [address] Dr. Usama Hobbs METAMYELOCYTE % 1 % Normal [facility] Comment on above: Performed By: #### B BARK TANNER, CMP #### [facility] [address] [place] [address] Dr. Usama Hobbs MONOM# 0.14 103/ul Critically low 0.30-0.80 [facility] Comment on above: Performed By: #### B BARK TANNER, CMP #### [facility] [address] [place] [address] Dr. Usama Hobbs MONOM% 8.0 % Normal 1.7-12.0 [facility] Comment on above: Performed By: #### B BARK TANNER, CMP #### [facility] [address] [place] [address] Dr. Usama Hobbs MPV 10.5 fL Normal 9.5-13.5 [facility] Comment on above: Performed By: #### B BARK TANNER, CMP #### [facility] [address] [place] [address] Dr. Usama Hobbs MYELOCYTE # 0.1 103/ul Normal [facility] Comment on above: Performed By: #### B BARK TANNER, CMP #### [facility] [address] [place] [address] Dr. Usama Hobbs MYELOCYTE % 5 % Normal [facility] Comment on above: Performed By: #### B BARK TANNER, CMP #### [facility] [address] [place] [address] Dr. Usama Hobbs NRBC Normal [facility] Comment on above: Performed By: #### B BARK TANNER, CMP #### [facility] [address] [place] [address] Dr. Usama Hobbs PLT 163 103/ul Normal 150-450 [facility] Comment on above: Performed By: #### B BARK TANNER, CMP #### [facility] [address] [place] [address] Dr. Usama Hobbs RBC 3.14 106/ul Critically low 4.70-6.10 [facility] Comment on above: Performed By: #### B BARK TANNER, CMP #### [facility] [address] [place] [address] Dr. Usama Hobbs RDW 12.4 % Normal 11.0-15.0 [facility] Comment on above: Performed By: #### B BARK TANNER, CMP #### [facility] [address] [address] [address] Usama Hobbs SEG # 0.81 103/ul Critically low 1.40-6.50 [facility] Comment on above: Performed By: #### B BARK TANNER, CMP #### [facility] [address] [place] [address] Dr. Usama Hobbs SEG % 45.0 % Normal 43.0-75.0 [facility] Comment on above: Performed By: #### B BARK TANNER, CMP #### [facility] [address] [place] [address] Dr. Usama Hobbs WBC 1.8 103/ul Critically low 4.0-11.0 [facility] Comment on above: Performed By: #### B BARK TANNER, CMP #### [facility] [address] [place] [address] HEAD WO CONon [...] Date: 2021-11-16 18:41 Normal [facility] Covid-19 PCR (CVDTB)on 10-20 SARS-CoV-2 (COVID-19) RNA TONYA+probe Ql (Unsp spec) Not detected Normal NOT DETECTED [facility] Comment on above: Result Comment: This test is not yet approved or cleared by the [place] FDA. When there are no FDA-approved or cleared tests available, and other criteria are met, FDA can make tests available under an emergency access mechanism called an Emergency Use Authorization (EUA). The EUA for this test is supported by the [employer]er of Health and Human Service's (HHS's) declaration [...] consistent with SARS-CoV-2. Performed By: #### B BARK TANNER, CMP #### [facility] [address] [place] [address] Dr. Usama Hobbs PROF 14(COMP METB)on 022 Albumin [Mass/Vol] 3.3 g/dL Critically low 3.4-5.0 Th e [facility] Comment on above: Performed By: #### P SAD #### [facility] [address] [place] [address] Dr. Usama Hobbs Albumin/Globulin [Mass ratio] 0.9 {ratio} Normal [facility] Comment on above: Performed By: #### P SAD #### [facility] [address] [place] [address] Dr. Usama Hobbs ALP [Catalytic activity/Vol] 78 U/L Normal 46-116 [facility] Comment on above: Performed By: #### P SAD #### [facility] [address] [place] [address] Dr. Usama Hobbs ALT [Catalytic activity/Vol] 33 U/L Normal 16-63 [facility] Comment on above: Performed By: #### P SAD #### [facility] [address] [place] [address] Dr. Usama Hobbs Anion gap [Moles/Vol] 9.8 mmol/L Normal [facility] Comment on above: Performed By: #### P SAD #### [facility] [address] [address] [address] Usama Hobbs AST [Catalytic activity/Vol] 25 U/L Normal 15-37 [facility] Comment on above: Performed By: #### P SAD #### [facility] [address] [address] [address] Usama Hobbs Bilirubin [Mass/Vol] 0.4 mg/dL Normal 0.2-1.0 [facility] Comment on above: Performed By: #### P SAD #### [facility] [address] [address] [address] Usama Hobbs Calcium [Mass/Vol] 8.1 mg/dL Critically low 8.5-10.[address] [facility] Comment on above: Performed By: #### P SAD #### [facility] [address] [address] [address] Usama Hobbs Chloride [Moles/Vol] 102 mmol/L Normal 98-107 [facility] Comment on above: Performed By: #### P SAD #### [facility] [address] [address] [address] Usama Hobbs CO2 [Moles/Vol] 27.0 mmol/L Normal 21.0-32.0 [facility] Comment on above: Performed By: #### P SAD #### [facility] [address] [address] [address] Usama Hobbs Creatinine [Mass/Vol] 2.27 mg/dL Critically high 0.70-1.30 [facility] Comment on above: Performed By: #### P SAD #### [facility] [address] [address] [address] Usama Hobbs EGFR-AF BELARUSIAN 35 mL/min/1.73m2 Critically low >=60 [facility] Comment on above: Performed By: #### P SAD #### [facility] [address] [address] [address] Usama Hobbs EGFR-NON AF BELARUSIAN 29 mL/min/1.73m2 Critically low >=60 [facility] Comment on above: Performed By: #### P SAD #### [facility] [address] [address] [address] Usama Hobbs Globulin (S) [Mass/Vol] 3.5 g/dL Normal [facility] Comment on above: Performed By: #### P SAD #### [facility] [address] [address] [address] Usama Hobbs Glucose [Mass/Vol] 88 mg/dL Normal 74-106 [facility] Comment on above: Performed By: #### P SAD #### [facility] [address] [address] [address] Usama Hobbs Potassium [Moles/Vol] 3.8 mmol/L Normal 3.5-5.1 [facility] Comment on above: Performed By: #### P SAD #### [facility] [address] [place] [address] Dr. Usama Hobbs Protein [Mass/Vol] 6.8 g/dL Normal 6.1-8.2 [facility] Comment on above: Performed By: #### P SAD #### [facility] [address] [address] [address] Usama Hobbs Sodium [Moles/Vol] 135 mmol/L Critically low 136-[address] [facility] Comment on above: Performed By: #### P SAD #### [facility] [address] [place] [address] Dr. Usama Hobbs Urea nitrogen [Mass/Vol] 26.0 mg/dL Critically high 7.0-18.0 [facility] Comment on above: Performed By: #### P SAD #### [facility] [address] [address] [address] Usama Hobbs Urea nitrogen/Creatinine [Mass ratio] 11.5 mg/mg Normal [facility] Comment on above: Performed By: #### P SAD #### [facility] [address] [address] [address] Usama Hobbs PROTIMEon 11-16-2021 INR Coag (PPP) [Relative time] 0.99 {INR} Normal [facility] Comment on above: Performed By: #### B BARK TANNER, CMP #### [facility] [address] [place] [address] Dr. Usama Hobbs INR GUIDELINES SEE BELOW Normal [facility] Comment on above: Result Comment: LUCY RED INR: 2.0 - 3.0 CONDITIONS NOT LISTED BELOW 2.5 - 3.5 FOR PROSTHETIC HEART VALVE REPLACEMENT 2.5 - 3.5 RECURRENT THROMBOSIS Performed By: #### B BARK TANNER, CMP #### [facility] [address] [place] [address] Dr. Usama Hobbs PT Coag (PPP) [Time] 10.7 s Normal 9.0-11.6 [facility] Comment on above: Performed By: #### B BARK TANNER, CMP #### [facility] [address] [place] [address] Dr. Usama Hobbs PTTon 11-16-2021 aPTT Coag (Bld) [Time] 28.2 s Normal 22.3-36.2 [facility] Comment on above: Performed By: #### B BARK TANNER, CMP #### [facility] [address] [place] [address] Dr. Usama Hobbs T4on 11-16-2021 T4 [Mass/Vol] 6.30 ug/dL Normal 4.50-12.10 [facility] Comment on above: Performed By: #### P SAD #### [facility] [address] [place] [address] Dr. Usama Hobbs TROPONIN, HIGH SENSITIVITYon 11-16-2021 HSTROP 24.0 pg/mL Normal 4.0-76.1 [facility] Comment on above: Result Comment: CUT- OFF POINTS HAVE BEEN ESTABLISHED BASED ON THE FOURTH UNIVERSAL DEFINITIONS OF MYOCARDIAL INFARCTION. THE UPPER REFERENCE LIMIT (URL) OF TROPONIN, DEFINED THE 99TH PERCENTILE OF cTnI DISTRIBUTION IN A REFERENCE POPULATION, HAS BEEN CONFIRMED THE DECISION THRESHOLD FOR VA DIAGNOSIS. Performed By: #### B BARK TANNER, CMP #### [facility] [address] [place] [address] Dr. Usama Hobbs TSHon 11-16-2021 TSH 2.466 uIU/mL Normal 0.470-4.680 [facility] Comment on above: Performed By: #### P SAD #### [facility] [address] [address] [address] Usama Hobbs TSH RANGE SEE BELOW Normal [facility] Comment on above: Result Comment: <0.3 4 UIU/ml HYPERTHYROID 0.34-5.60 UIU/ml EUTHYROID >5.60 UIU/ml HYPOTHYROID Performed By: #### P SAD #### [facility] [address] [address] [address] Usama Hobbs XR CHEST 1 Von [...] Date: 2021-11-16 19:24 Normal [facility] CBC W Auto Differential pane l (Bld)on 11-05-2021 Abs Immature Gran <0.03 <0.10 k/uL [facility] Basophils (Bld) [#/Vol] 0.05 10*3/uL <0.11 k/uL [facility] Basophils/100 WBC (Bld) 1.0 % [facility] Differential cell count method Nom (Bld) Auto [facility] Eosinophils (Bld) [#/Vol] 0.39 10*3/uL <0.46 k/uL [facility] Eosinophils/100 WBC (Bld) 7.4 % [facility] Erythrocyte distribution width (RBC) [Ratio] 13.2 % 11.5 - 15.0 % [facility] Hematocrit (Bld) [Volume fraction] 39.1 % 39.0 - 51.0 % [facility] Hemoglobin (Bld) [Mass/Vol] 12.9 g/dL Low 13.0 - 17.0 g/dL [facility] Immature Gran % 0.2 % [facility] Lymphocytes (Bld) [#/Vol] 1.07 10*3/uL 1.00 - 4.00 k/uL [facility] Lymphocytes/100 WBC (Bld) 20.4 % [facility] MCH (RBC) [Entitic mass] 30.6 pg 26.0 - 34.0 pg [facility] MCHC (RBC) [Mass/Vol] 33.0 g/dL 30.5 - 36.0 g/dL [facility] MCV (RBC) [Entitic vol] 92.9 fL 80.0 - 100.0 fL [facility] Monocytes (Bld) [#/Vol] 0.57 10*3/uL <0.87 k/uL [facility] Monocytes/100 WBC (Bld) 10.9 % [facility] Neutrophils (Bld) [#/Vol] 3.15 10*3/uL 1.45 - 7.50 k/uL [facility] Neutrophils/100 WBC (Bld) 60.1 % [facility] Nucleated RBC (Bld) [#/Vol] 10*3/uL <0.01 k/uL [facility] Nucleated RBC/100 WBC (Bld) [Ratio] 0.0 /100 WBC [facility] Platelet mean volume (Bld) [Entitic vol] 9.9 fL 9.0 - 12.7 fL [facility] Platelets (Bld) [#/Vol] 305 10*3/uL 150 - 400 k/uL [facility] RBC (Bld) [#/Vol] 4.21 10*6/uL 4.20 - 6.00 m/uL [facility] WBC (Bld) [#/Vol] 5.24 10*3/uL 3.70 - 11.00 k/u L [facility] Comprehensive metabolic 2000 panelon 11-05-2021 Albumin [Mass/Vol] 4.3 g/dL 3.9 - 4.9 g/dL Cl [facility] ALP [Catalytic activity/Vol] 73 U/L 38 - 113 U/L [facility] ALT [Catalytic activity/Vol] 16 U/L 10 - 54 U/L [facility] Anion gap [Moles/Vol] 12 mmol/L 9 - 18 mmol/L [facility] AST [Catalytic activity/Vol] 17 U/L 14 - 40 U/L [facility] Bilirubin [Mass/Vol] 0.5 mg/dL 0.2 - 1.3 mg/dL [facility] Calcium [Mass/Vol] 10.1 mg/dL 8.5 - 10.2 mg/dL [facility] Chloride [Moles/Vol] 105 mmol/L 97 - 105 mmol/L [facility] CO2 [Moles/Vol] 25 mmol/L 22 - 30 mmol/L [facility] Creatinine [Mass/Vol] 0.89 mg/dL 0.73 - 1.22 mg/dL [facility] Estimated Glomerular Filtration Rate 96 mL/min/1.73m >=60 mL/min/1.73m [facility] Glucose [Mass/Vol] 154 mg/dL High 74 - 99 mg/dL [facility] Potassium [Moles/Vol] 4.2 mmol/L 3.7 - 5.1 mmol/L [facility] Protein [Mass/Vol] 7.1 g/dL 6.3 - 8.0 g/dL [facility] Sodium [Moles/Vol] 142 mmol/L 136 - 144 mmol/L [facility] Urea nitrogen [Mass/Vol] 9 mg/dL 9 - 24 mg/dL [facility] MRI BRAIN WO/W IVCONon 10-31 [facility] XR CHEST 2V FRONTAL/LATon [facility] NM PET/CT WHOLE BODY INITIAL on 05-28-2021 [facility] Cardiovascular Lab Reporton 02-24-2019 Cardiovascular Lab Report [facility] Patient Name: Riccardo , [facility] Cristal Maloney MR #: [id number] Department of Physician: Jonathan Chaney M.D. Division of Service Date: 02/23/2019 Cardiology Birthdate: 1955 Adult Cardiovascular Room #: [id number] [address] Cardiovascular Laboratory Report INDICATION: The patient is [...] signed informed consent. He was brought to label drier in a fasting state. The right groin area was prepped and draped in usual fashion. Using micropuncture technique, the right common femoral artery was accessed. The inner cannula was advanced and limited right femoral angiography was performed followed by upsizing to a 6-Kosovan x 5 cm sheath. Right lower extremity angiography was performed down to the level of the foot. An angled Glidewire was advanced into the abdominal aorta and a 5-Kosovan Uni-Flush catheter was advanced. Aortoiliac angiography was performed using digital subtraction angiography and power injection of contrast. Using the angled Glidewire, the aortoiliac bifurcation was crossed and the catheter was exchanged to a 5-Kosovan straight tapered diagnostic catheter, which was used [...] The access sheath was exchanged to a 6-Kosovan x 11 cm sheath. The patient was [...] Chaney M.D. Date Trans: 02/24/2019 05:47 A/boris [id number] cc: Christina Azul M.D. 1 [facility] [id number] [place] [facility] Vital Signs Date Time Vital Sign Value Performing Clinician Facility 03-20-2024 15:040 Body temperature 97.8 [degF] [facility] 03-20-2024 15:0400 Diastolic blood pressure 82 mm[Hg] [facility] 03-20-2024 15:-0400 Heart rate 68 /min [facility] 03-20-2024 15:-0400 Respiratory rate 16 /min [facility] 03-20-2024 15:21-0400 SaO2% (BldA) [Mass fraction] 98 % [facility] 03-20-2024 15:21-0400 Systolic blood pressure 171 mm[Hg] [facility] 03-20-2024 06:00-0400 Body weight 50.2 kg [facility] 03-20-2024 00:00-0400 Inhaled oxygen flow rate 2 L/min [facility] 03-19-2024 11:15-0400 Heart rate 80 /min [facility] 03-19-2024 11:00-0400 Diastolic blood pressure 84 mm[Hg] [facility] 03-19-2024 11:00-0400 Respiratory rate 16 /min [facility] 03-19-2024 11:00-0400 SaO2% (BldA) [Mass fraction] 95 % [facility] 03-19-2024 11:00-0400 Systolic blood pressure 178 mm[Hg] [facility] 03-19-2024 09:14-0400 Body height 170.18 cm [facility] 03-19-2024 09:14-0400 Body temperature 97.9 [degF] [facility] 03-19-2024 09:14-0400 Body weight 52.25 kg [facility] 03-18-2024 18:52-0400 Diastolic blood pressure 90 mm[Hg] [facility] 03-18-2024 18:52-0400 Systolic blood pressure 190 mm[Hg] [facility] 03-18-2024 18:45-0400 Body height 170.18 cm [facility] 03-18-2024 18:45-0400 Body temperature 98.4 [degF] [facility] 03-18-2024 18:45-0400 Body weight 52.8 kg [facility] 03-18-2024 18:45-0400 Heart rate 67 /min [facility] 03-18-2024 18:45-0400 Respiratory rate 21 /min [facility] 03-18-2024 18:45-0400 SaO2% (BldA) [Mass fraction] 100 % [facility] 03-18-2024 13:27-0400 SaO2% (BldA) [Mass fraction] 84 % Nina Grigsby MD Work Phone: [facility] 03-18-2024 13:21-0400 Body height 168.3 cm Nina Grigsby MD Work Phone: [facility] 03-18-2024 13:21-0400 Body mass index (BMI) [Ratio] 18.15 kg/m2 Nina Grigsby MD Work Phone: [facility] 03-18-2024 13:21-0400 Body temperature 97.5 [degF] Nina Grigsby MD Work Phone: [facility] 03-18-2024 13:21-0400 Body weight 51.4 kg Nina Grigsby MD Work Phone: [facility] 03-18-2024 13:21-0400 Diastolic blood pressure 78 mm[Hg] Nina Grigsby MD Work Phone: [facility] 03-18-2024 13:21-0400 Heart rate 86 /min Nina Grigsby MD Work Phone: [facility] 03-18-2024 13:21-0400 Respiratory rate 16 /min Nina Grigsby MD Work Phone: [facility] 03-18-2024 13:21-0400 Systolic blood pressure 159 mm[Hg] Nina Grigsby MD Work Phone: [facility] 03-15-2024 13:06-0400 Body mass index (BMI) [Ratio] 17.62 kg/m2 Merary Lucas MD Work Phone: [facility] 03-15-2024 13:06-0400 Body weight 49.9 kg Merary Lucas MD Work Phone: [facility] 03-15-2024 13:06-0400 Diastolic blood pressure 62 mm[Hg] Merary Lucas MD Work Phone: [facility] 03-15-2024 13:06-0400 Heart rate 65 /min Merary Lucas MD Work Phone: [facility] 03-15-2024 13:06-0400 SaO2% (BldA) [Mass fraction] 100 % Merary Lucas MD Work Phone: [facility] Comment on above: ra 03-15-2024 13:06-0400 Systolic blood pressure 127 mm[Hg] Merary Lucas MD Work Phone: [facility] 02-07-2024 19:28-0400 Diastolic blood pressure 75 mm[Hg] [facility] 02-07-2024 19:28-0400 Heart rate 76 /min [facility] 02-07-2024 19:28-0400 Respiratory rate 18 /min [facility] 02-07-2024 19:28-0400 SaO2% (BldA) [Mass fraction] 97 % [facility] 02-07-2024 19:28-0400 Systolic blood pressure 159 mm[Hg] [facility] 02-07-2024 15:51-0400 Body height 170.18 cm [facility] 02-07-2024 15:51-0400 Body temperature 98 [degF] [facility] 02-07-2024 15:51-0400 Body weight 52.3 kg [facility] 02-03-2024 11:32-0400 Body height 168.3 cm Yusef Jessica PA-C Work Phone: [facility] 02-03-2024 11:32-0400 Body mass index (BMI) [Ratio] 18.43 kg/m2 Yusef Jessica PA-C Work Phone: [facility] 02-03-2024 11:32-0400 Body temperature 97.3 [degF] Yusef Jessica PA-C Work Phone: [facility] 02-03-2024 11:32-0400 Body weight 52.2 kg Yusef Jessica PA-C Work Phone: [facility] 02-03-2024 11:32-0400 Diastolic blood pressure 74 mm[Hg] Yusef Jessica PA-C Work Phone: [facility] 02-03-2024 11:32-0400 Heart rate 92 /min Yusef Jessica PA-C Work Phone: [facility] 02-03-2024 11:32-0400 Respiratory rate 18 /min Yusef Jessica PA-C Work Phone: [facility] 02-03-2024 11:32-0400 SaO2% (BldA) [Mass fraction] 99 % Yusef Jessica PA-C Work Phone: [facility] 02-03-2024 11:32-0400 Systolic blood pressure 122 mm[Hg] Yusef Jessica PA-C Work Phone: [facility] 12-23-2023 14:53-0400 Body height 168.3 cm Nina Grigsby MD Work Phone: [facility] 12-23-2023 14:53-0400 Body mass index (BMI) [Ratio] 19.49 kg/m2 Nina Grigsby MD Work Phone: [facility] 12-23-2023 14:53-0400 Body temperature 97.39 [degF] Nina Grigsby MD Work Phone: [facility] 12-23-2023 14:53-0400 Body weight 55.2 kg Nina Grigsby MD Work Phone: [facility] 12-23-2023 14:53-0400 Diastolic blood pressure 74 mm[Hg] Nina Grigsby MD Work Phone: [facility] 12-23-2023 14:53-0400 Heart rate 71 /min Nina Grigsby MD Work Phone: [facility] 12-23-2023 14:53-0400 Respiratory rate 16 /min Nina Grigsby MD Work Phone: [facility] 12-23-2023 14:53-0400 SaO2% (BldA) [Mass fraction] 99 % Nina Grigsby MD Work Phone: [facility] 12-23-2023 14:53-0400 Systolic blood pressure 137 mm[Hg] Nina Grigsby MD Work Phone: [facility] 12-22-2023 12:38-0400 Body mass index (BMI) [Ratio] 18.29 kg/m2 JC Limon MD Work Phone: [facility] 12-22-2023 12:38-0400 Body temperature 97.59 [degF] JC Limon MD Work Phone: [facility] 12-22-2023 12:38-0400 Body weight 51.8 kg JC Limon MD Work Phone: [facility] 12-22-2023 12:38-0400 Diastolic blood pressure 83 mm[Hg] JC Limon MD Work Phone: [facility] 12-22-2023 12:38-0400 Heart rate 116 /min JC Limon MD Work Phone: [facility] 12-22-2023 12:38-0400 Respiratory rate 18 /min JC Limon MD Work Phone: [facility] 12-22-2023 12:38-0400 SaO2% (BldA) [Mass fraction] 99 % JC Limon MD Work Phone: [facility] 12-22-2023 12:38-0400 Systolic blood pressure 124 mm[Hg] JC Limon MD Work Phone: [facility] 12-16-2023 15:45-0400 Body mass index (BMI) [Ratio] 19.14 kg/m2 JC Limon MD Work Phone: [facility] 12-16-2023 15:45-0400 Body temperature 97.3 [degF] JC Limon MD Work Phone: [facility] 12-16-2023 15:45-0400 Body weight 54.2 kg JC Limon MD Work Phone: [facility] 12-16-2023 15:45-0400 Diastolic blood pressure 86 mm[Hg] JC Limon MD Work Phone: [facility] 12-16-2023 15:45-0400 Heart rate 66 /min JC Limon MD Work Phone: [facility] 12-16-2023 15:45-0400 Respiratory rate 16 /min JC Limon MD Work Phone: [facility] 12-16-2023 15:45-0400 SaO2% (BldA) [Mass fraction] 100 % JC Limon MD Work Phone: [facility] 12-16-2023 15:45-0400 Systolic blood pressure 161 mm[Hg] JC Limon MD Work Phone: [facility] 12-10-2023 14:40-0400 Body mass index (BMI) [Ratio] 19.21 kg/m2 JC Liomn MD Work Phone: [facility] 12-10-2023 14:40-0400 Body temperature 96.69 [degF] JC Limon MD Work Phone: [facility] 12-10-2023 14:40-0400 Body weight 54.4 kg JC Limon MD Work Phone: [facility] 12-10-2023 14:40-0400 Diastolic blood pressure 68 mm[Hg] JC Limon MD Work Phone: [facility] 12-10-2023 14:40-0400 Heart rate 68 /min JC Limon MD Work Phone: [facility] 12-10-2023 14:40-0400 Respiratory rate 16 /min JC Limon MD Work Phone: [facility] 12-10-2023 14:40-0400 SaO2% (BldA) [Mass fraction] 97 % JC Limon MD Work Phone: [facility] 12-10-2023 14:40-0400 Systolic blood pressure 125 mm[Hg] JC Limon MD Work Phone: [facility] 12-02-2023 10:20-0400 Body height 168.3 cm Nina Grigsby MD Work Phone: [facility] 12-02-2023 10:20-0400 Body mass index (BMI) [Ratio] 18.71 kg/m2 Nina Grigsby MD Work Phone: [facility] 12-02-2023 10:20-0400 Body temperature 96.69 [degF] Nina Grigsby MD Work Phone: [facility] 12-02-2023 10:20-0400 Body weight 53 kg Nina Grigsby MD Work Phone: [facility] 12-02-2023 10:20-0400 Diastolic blood pressure 83 mm[Hg] Nina Grigsby MD Work Phone: [facility] 12-02-2023 10:20-0400 Heart rate 55 /min Nina Grigsby MD Work Phone: [facility] 12-02-2023 10:20-0400 Respiratory rate 16 /min Nina Grigsby MD Work Phone: [facility] 12-02-2023 10:20-0400 SaO2% (BldA) [Mass fraction] 93 % Nina Grigsby MD Work Phone: [facility] 12-02-2023 10:20-0400 Systolic blood pressure 133 mm[Hg] Nina Grigsby MD Work Phone: [facility] 11-21-2023 10:05-0400 Body height 168.3 cm Estella [employer] 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 Work Phone: [facility] 11-21-2023 10:05-0400 Body mass index (BMI) [Ratio] 19.74 kg/m2 Estella [employer] F[employer]CE 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 Work Phone: [facility] 11-21-2023 10:05-0400 Body temperature 97.7 [degF] Estella [employer] F[employer]NACE 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 Work Phone: [facility] 11-21-2023 10:05-0400 Body weight 55.9 kg Estella Bundridge [employer] F[employer]NACE 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 Work Phone: [facility] 11-21-2023 10:05-0400 Diastolic blood pressure 91 mm[Hg] Estella Bundridge [employer] F[employer]NACE 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 Work Phone: [facility] 11-21-2023 10:05-0400 Heart rate 95 /min Estella Bundridge [employer] F[employer]NACE 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 Work Phone: [facility] 11-21-2023 10:05-0400 Respiratory rate 16 /min Estella Bundridge [employer] F[employer]NACE 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 Work Phone: [facility] 11-21-2023 10:05-0400 SaO2% (BldA) [Mass fraction] 98 % Estella Bundridge [employer] F[employer]NACE 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 Work Phone: [facility] 11-21-2023 10:05-0400 Systolic blood pressure 154 mm[Hg] Estella Bundridge [employer] F[employer]NACE 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 Work Phone: [facility] 11-04-2023 09:43-0400 Body height 168.3 cm Nina Grigsby MD Work Phone: [facility] 11-04-2023 09:43-0400 Body temperature 97 [degF] Nina Grigsby MD Work Phone: [facility] 11-04-2023 09:43-0400 Body weight 56.3 kg Nina Grigsby MD Work Phone: [facility] 11-04-2023 09:43-0400 Diastolic blood pressure 84 mm[Hg] Nina Grigsby MD Work Phone: [facility] 11-04-2023 09:43-0400 Heart rate 101 /min Nina Grigsby MD Work Phone: [facility] 11-04-2023 09:43-0400 Respiratory rate 16 /min Nina Grigsby MD Work Phone: [facility] 11-04-2023 09:43-0400 SaO2% (BldA) [Mass fraction] 96 % Nina Grigsby MD Work Phone: [facility] 11-04-2023 09:43-0400 Systolic blood pressure 147 mm[Hg] Nina Grigsby MD Work Phone: [facility] 10-20-2023 10:06-0400 Body height 168.3 cm Nina Grigsby MD Work Phone: [facility] 10-20-2023 10:06-0400 Body temperature 97.3 [degF] Nina Girgsby MD Work Phone: [facility] 10-20-2023 10:06-0400 Body weight 57.5 kg Nina Grigsby MD Work Phone: [facility] 10-20-2023 10:06-0400 Diastolic blood pressure 72 mm[Hg] Nina Grigsby MD Work Phone: [facility] 10-20-2023 10:06-0400 Heart rate 82 /min Nina Grigsby MD Work Phone: [facility] 10-20-2023 10:06-0400 Respiratory rate 18 /min Nina Grigsby MD Work Phone: [facility] 10-20-2023 10:06-0400 SaO2% (BldA) [Mass fraction] 98 % Nina Grigsby MD Work Phone: [facility] 10-20-2023 10:06-0400 Systolic blood pressure 155 mm[Hg] Nina Grigsby MD Work Phone: [facility] 09-22-2023 09:56-0500 Body height 168.3 cm Nina Grigsby MD Work Phone: [facility] 09-22-2023 09:56-0500 Body temperature 97.11 [degF] Nina Grigsby MD Work Phone: [facility] 09-22-2023 09:56-0500 Body weight 60.2 kg Nina Grigsby MD Work Phone: [facility] 09-22-2023 09:56-0500 Diastolic blood pressure 78 mm[Hg] Nina Grigsby MD Work Phone: [facility] 09-22-2023 09:56-0500 Heart rate 91 /min Nina Grigsby MD Work Phone: [facility] 09-22-2023 09:56-0500 Respiratory rate 18 /min Nina Grigsby MD Work Phone: [facility] 09-22-2023 09:56-0500 SaO2% (BldA) [Mass fraction] 99 % Nina Grigsby MD Work Phone: [facility] 09-22-2023 09:56-0500 Systolic blood pressure 142 mm[Hg] Nina Grigsby MD Work Phone: [facility] 08-25-2023 14:55-0500 Body height 168.3 cm Nina Grigsby MD Work Phone: [facility] 08-25-2023 14:55-0500 Body temperature 97.59 [degF] Nina Grigsby MD Work Phone: [facility] 08-25-2023 14:55-0500 Body weight 61.2 kg Nina Grigsby MD Work Phone: [facility] 08-25-2023 14:55-0500 Diastolic blood pressure 70 mm[Hg] Nina Grigsby MD Work Phone: [facility] 08-25-2023 14:55-0500 Heart rate 67 /min Nina Grigsby MD Work Phone: [facility] 08-25-2023 14:55-0500 Respiratory rate 18 /min Nina Grigsby MD Work Phone: [facility] 08-25-2023 14:55-0500 Systolic blood pressure 136 mm[Hg] Nina Grigsby MD Work Phone: [facility] 06-30-2023 15:09-0500 Body height 168.3 cm Nina Grigsby MD Work Phone: [facility] 06-30-2023 15:09-0500 Body temperature 97.11 [degF] Nina Grigsby MD Work Phone: [facility] 06-30-2023 15:09-0500 Body weight 63.05 kg Nina Grigsby MD Work Phone: [facility] 06-30-2023 15:09-0500 Diastolic blood pressure 66 mm[Hg] Nina Grigsby MD Work Phone: [facility] 06-30-2023 15:09-0500 Heart rate 84 /min Nina Grigsby MD Work Phone: [facility] 06-30-2023 15:09-0500 Respiratory rate 16 /min Nina Grigsby MD Work Phone: [facility] 06-30-2023 15:09-0500 Systolic blood pressure 119 mm[Hg] Nina Grigsby MD Work Phone: [facility] 06-13-2023 09:34-0500 Body temperature 97 [degF] Estella Bundridge [employer] 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 Work Phone: [facility] 06-13-2023 09:34-0500 Body weight 63.41 kg Estella Bundridge [employer] F[employer]CE 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 Work Phone: [facility] 06-13-2023 09:34-0500 Diastolic blood pressure 78 mm[Hg] Estella Bundridge [employer] WORK F[employer]NACE 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 Work Phone: [facility] 06-13-2023 09:34-0500 Heart rate 84 /min Estella Bundridge [employer] WORK F[employer]NACE 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 Work Phone: [facility] 06-13-2023 09:34-0500 Respiratory rate 18 /min Estella Bundridge [employer] WORK F[employer]NACE 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 Work Phone: [facility] 06-13-2023 09:34-0500 SaO2% (BldA) [Mass fraction] 98 % Estella Bundridge [employer] WORK F[employer]NACE 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 Work Phone: [facility] 06-13-2023 09:34-0500 Systolic blood pressure 139 mm[Hg] Estella Bundridge [employer] WORK F[employer]NACE 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 Work Phone: [facility] 06-02-2023 14:34-0500 Body height 168.3 cm Patricia Miller [employer] WORK F[employer]NACE 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 Work Phone: [facility] 06-02-2023 14:34-0500 Body temperature 97.59 [degF] Patricia Miller [employer] WORK F[employer]NACE 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 Work Phone: [facility] 06-02-2023 14:34-0500 Body weight 63.78 kg Patricia Miller [employer] WORK F[employer]NACE 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 Work Phone: [facility] 06-02-2023 14:34-0500 Diastolic blood pressure 101 mm[Hg] Patricia Miller [employer] WORK F[employer]NACE 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 Work Phone: [facility] 06-02-2023 14:34-0500 Heart rate 98 /min Patricia Miller [employer] WORK F[employer]NACE 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 Work Phone: [facility] 06-02-2023 14:34-0500 Respiratory rate 16 /min Patricia Miller [employer] WORK F[employer]NACE 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 Work Phone: [facility] 06-02-2023 14:34-0500 SaO2% (BldA) [Mass fraction] 97 % Patricia Miller [employer] WORK F[employer]NACE 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 Work Phone: [facility] 06-02-2023 14:34-0500 Systolic blood pressure 160 mm[Hg] Patricia Miller [employer] WORK F[employer]NACE 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 Work Phone: [facility] 05-30-2023 11:11-0500 Body temperature 97.3 [degF] JC Limon MD Work Phone: [facility] 05-30-2023 11:11-0500 Body weight 64.32 kg JC Limon MD Work Phone: [facility] 05-30-2023 11:11-0500 Diastolic blood pressure 114 mm[Hg] JC Limon MD Work Phone: [facility] 05-30-2023 11:11-0500 Heart rate 70 /min JC Limon MD Work Phone: [facility] 05-30-2023 11:11-0500 Respiratory rate 16 /min JC Limon MD Work Phone: [facility] 05-30-2023 11:11-0500 SaO2% (BldA) [Mass fraction] 100 % JC Limon MD Work Phone: [facility] 05-30-2023 11:11-0500 Systolic blood pressure 172 mm[Hg] JC Limon MD Work Phone: [facility] 05-16-2023 08:51-0400 Body height 168.3 cm Estella Bundridge [employer] WORK F[employer]CE 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 Work Phone: [facility] 05-16-2023 08:51-0400 Body temperature 97 [degF] Estella Bundridge [employer] WORK F[employer]NACE 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 Work Phone: [facility] 05-16-2023 08:51-0400 Body weight 63.14 kg Estella Bundridge [employer] WORK F[employer]NACE 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 Work Phone: [facility] 05-16-2023 08:51-0400 Diastolic blood pressure 85 mm[Hg] Estella Bundridge [employer] WORK F[employer]NACE 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 Work Phone: [facility] 05-16-2023 08:51-0400 Heart rate 85 /min Estella Bundridge [employer] WORK F[employer]NACE 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 Work Phone: [facility] 05-16-2023 08:51-0400 Respiratory rate 16 /min Estella Bundridge [employer] WORK F[employer]NACE 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 Work Phone: [facility] 05-16-2023 08:51-0400 SaO2% (BldA) [Mass fraction] 98 % Estella Bundridge [employer] WORK F[employer]NACE 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 Work Phone: [facility] 05-16-2023 08:51-0400 Systolic blood pressure 150 mm[Hg] Estella Bundridge [employer] WORK F[employer]NACE 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 Work Phone: [facility] 04-01-2023 12:53-0400 Diastolic blood pressure 101 mm[Hg] Patricia Miller [employer] WORK F[employer]NACE 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 Work Phone: [facility] 04-01-2023 12:53-0400 Heart rate 105 /min Patricia Miller [employer] WORK F[employer]NACE 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 Work Phone: [facility] 04-01-2023 12:53-0400 Systolic blood pressure 191 mm[Hg] Patricia Miller [employer] WORK F[employer]NACE 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 Work Phone: [facility] 04-01-2023 12:50-0400 Body height 168.3 cm Patricia Miller [employer] WORK F[employer]NACE 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 Work Phone: [facility] 04-01-2023 12:50-0400 Body temperature 97.81 [degF] Patricia Miller [employer] WORK F[employer]NACE 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 Work Phone: [facility] 04-01-2023 12:50-0400 Body weight 62.96 kg Patricia Miller [employer] WORK F[employer]NACE 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 Work Phone: [facility] 04-01-2023 12:50-0400 Respiratory rate 18 /min Patricia Miller [employer] WORK F[employer]NACE 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 Work Phone: [facility] 04-01-2023 12:50-0400 SaO2% (BldA) [Mass fraction] 98 % Patricia Miller [employer] WORK F[employer]NACE 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 Work Phone: [facility] 03-11-2023 13:40-0400 Body height 168.3 cm Nina Grigsby MD Work Phone: [facility] 03-11-2023 13:40-0400 Body temperature 97.59 [degF] Nina Grigsby MD Work Phone: [facility] 03-11-2023 13:40-0400 Body weight 62.14 kg Nina Grigsby MD Work Phone: [facility] 03-11-2023 13:40-0400 Diastolic blood pressure 74 mm[Hg] Nina Grigsby MD Work Phone: [facility] 03-11-2023 13:40-0400 Heart rate 75 /min Nina Grigsby MD Work Phone: [facility] 03-11-2023 13:40-0400 Respiratory rate 16 /min Nina Grigsby MD Work Phone: [facility] 03-11-2023 13:40-0400 SaO2% (BldA) [Mass fraction] 99 % Nina Grigsby MD Work Phone: [facility] 03-11-2023 13:40-0400 Systolic blood pressure 158 mm[Hg] Nina Grigsby MD Work Phone: [facility] 02-18-2023 16:06-0400 Diastolic blood pressure 97 mm[Hg] Chair [place] Work Phone: [facility] 02-18-2023 16:06-0400 Systolic blood pressure 183 mm[Hg] Chair [place] Work Phone: [facility] 02-18-2023 14:38-0400 Body height 168.3 cm Nina Grigsby MD Work Phone: [facility] 02-18-2023 14:38-0400 Body temperature 97.9 [degF] Nina Grigsby MD Work Phone: [facility] 02-18-2023 14:38-0400 Body weight 60.24 kg Nina Grigsby MD Work Phone: [facility] 02-18-2023 14:38-0400 Diastolic blood pressure 103 mm[Hg] Nina Grigsby MD Work Phone: [facility] 02-18-2023 14:38-0400 Heart rate 134 /min Nina Grigsby MD Work Phone: [facility] 02-18-2023 14:38-0400 Respiratory rate 16 /min Nina Grigsby MD Work Phone: [facility] 02-18-2023 14:38-0400 SaO2% (BldA) [Mass fraction] 98 % Nina Grigsby MD Work Phone: [facility] 02-18-2023 14:38-0400 Systolic blood pressure 161 mm[Hg] Nina Grigsby MD Work Phone: [facility] 01-03-2023 21:46-0400 Diastolic blood pressure 101 mm[Hg] MD Christina Azul Work Phone: [facility] 01-03-2023 21:46-0400 Heart rate 71 /min MD Christina Azul Work Phone: [facility] 01-03-2023 21:46-0400 Respiratory rate 18 /min MD Christina Azul Work Phone: [facility] 01-03-2023 21:46-0400 SaO2% (BldA) [Mass fraction] 98 % MD Christina Azul Work Phone: [facility] 01-03-2023 21:46-0400 Systolic blood pressure 173 mm[Hg] MD Christina Azul Work Phone: [facility] 01-03-2023 17:10-0400 Body height 170.18 cm MD Christina Azul Work Phone: [facility] 01-03-2023 17:10-0400 Body temperature 98.6 [degF] MD Christina Azul Work Phone: [facility] 01-03-2023 17:10-0400 Body weight 58.75 kg MD Christina Azul Work Phone: [facility] 12-17-2022 08:47-0400 Body height 168.3 cm Nina Grigsby MD Work Phone: [facility] 12-17-2022 08:47-0400 Body temperature 98.6 [degF] Nina Grigsby MD Work Phone: [facility] 12-17-2022 08:47-0400 Body weight 59.42 kg Nina Grigsby MD Work Phone: [facility] 12-17-2022 08:47-0400 Diastolic blood pressure 70 mm[Hg] Nina Grigsby MD Work Phone: [facility] 12-17-2022 08:47-0400 Heart rate 106 /min Nina Grigsby MD Work Phone: [facility] 12-17-2022 08:47-0400 Respiratory rate 16 /min Nina Grigsby MD Work Phone: [facility] 12-17-2022 08:47-0400 SaO2% (BldA) [Mass fraction] 96 % Nina Grigsby MD Work Phone: [facility] 12-17-2022 08:47-0400 Systolic blood pressure 122 mm[Hg] Nina Grigsby MD Work Phone: [facility] 11-25-2022 09:28-0400 Body height 168.3 cm Patricia Miller [employer]CE 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 Work Phone: [facility] 11-25-2022 09:28-0400 Body temperature 97.5 [degF] Patricia Miller SHE[employer] WORK FURNACE 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 Work Phone: [facility] 11-25-2022 09:28-0400 Body weight 59.15 kg Patricia Miller APRN.HEALTH OFFICER Work Phone: [facility] 11-25-2022 09:28-0400 Diastolic blood pressure 69 mm[Hg] Patricia Miller [employer] WORK FURNACE 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 Work Phone: [facility] 11-25-2022 09:28-0400 Heart rate 97 /min Patricia Miller SHE[employer] WORK FURNACE 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 Work Phone: [facility] 11-25-2022 09:28-0400 Respiratory rate 16 /min Patricia Miller SHE[employer] WORK FURNACE 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 Work Phone: [facility] 11-25-2022 09:28-0400 SaO2% (BldA) [Mass fraction] 99 % Patricia Miller [employer] WORK FURNACE 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 Work Phone: [facility] 11-25-2022 09:28-0400 Systolic blood pressure 108 mm[Hg] Patricia Miller SHEET [employer] WORK FURNACE 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 Work Phone: [facility] 11-20-2022 10:33-0400 Body temperature 97.7 [degF] JC Limon MD Work Phone: [facility] 11-20-2022 10:33-0400 Body weight 59.24 kg JC Limon MD Work Phone: [facility] 11-20-2022 10:33-0400 Diastolic blood pressure 73 mm[Hg] JC Limon MD Work Phone: [facility] 11-20-2022 10:33-0400 Heart rate 87 /min JC Limon MD Work Phone: [facility] 11-20-2022 10:33-0400 Respiratory rate 18 /min JC Limon MD Work Phone: [facility] 11-20-2022 10:33-0400 SaO2% (BldA) [Mass fraction] 97 % JC Limon MD Work Phone: [facility] 11-20-2022 10:33-0400 Systolic blood pressure 137 mm[Hg] JC Limon MD Work Phone: [facility] 11-18-2022 13:30-0400 Body height 168.3 cm Nina Grigsby MD Work Phone: [facility] 11-18-2022 13:30-0400 Body temperature 97.2 [degF] Nina Grigsby MD Work Phone: [facility] 11-18-2022 13:30-0400 Body weight 60.33 kg Nina Grigsby MD Work Phone: [facility] 11-18-2022 13:30-0400 Diastolic blood pressure 70 mm[Hg] Nina Grigsby MD Work Phone: [facility] 11-18-2022 13:30-0400 Heart rate 84 /min Nina Grigsby MD Work Phone: [facility] 11-18-2022 13:30-0400 Respiratory rate 16 /min Nina Grigsby MD Work Phone: [facility] 11-18-2022 13:30-0400 SaO2% (BldA) [Mass fraction] 100 % Nina Grigsby MD Work Phone: [facility] 11-18-2022 13:30-0400 Systolic blood pressure 124 mm[Hg] Nina Grigsby MD Work Phone: [facility] 11-11-2022 13:19-0400 Body height 168.3 cm Nina Grigsby MD Work Phone: [facility] 11-11-2022 13:19-0400 Body temperature 96.6 [degF] Nina Grigsby MD Work Phone: [facility] 11-11-2022 13:19-0400 Body weight 61.2 kg Nina Grigsby MD Work Phone: [facility] 11-11-2022 13:19-0400 Diastolic blood pressure 84 mm[Hg] Nina Grigsby MD Work Phone: [facility] 11-11-2022 13:19-0400 Heart rate 72 /min Nina Grigsby MD Work Phone: [facility] 11-11-2022 13:19-0400 Respiratory rate 18 /min Nina Grigsby MD Work Phone: [facility] 11-11-2022 13:19-0400 SaO2% (BldA) [Mass fraction] 96 % Nina Grigsby MD Work Phone: [facility] 11-11-2022 13:19-0400 Systolic blood pressure 162 mm[Hg] Nina Grigsby MD Work Phone: [facility] 11-04-2022 11:19-0400 Body temperature 97.7 [degF] JC Limon MD Work Phone: [facility] 11-04-2022 11:19-0400 Body weight 60.06 kg JC Limon MD Work Phone: [facility] 11-04-2022 11:19-0400 Diastolic blood pressure 84 mm[Hg] JC Limon MD Work Phone: [facility] 11-04-2022 11:19-0400 Heart rate 87 /min JC Limon MD Work Phone: [facility] 11-04-2022 11:19-0400 Respiratory rate 16 /min JC Limon MD Work Phone: [facility] 11-04-2022 11:19-0400 SaO2% (BldA) [Mass fraction] 95 % NA Fay KHOURY Work Phone: [facility] 11-04-2022 11:19-0400 Systolic blood pressure 159 mm[Hg] JC Limon MD Work Phone: [facility] 10-31-2022 14:57-0400 Body height 168.3 cm Nina Grigsby MD Work Phone: [facility] 10-31-2022 14:57-0400 Body temperature 97.2 [degF] Nina Grigsby MD Work Phone: [facility] 10-31-2022 14:57-0400 Body weight 59.97 kg Nina Grigsby MD Work Phone: [facility] 10-31-2022 14:57-0400 Diastolic blood pressure 65 mm[Hg] Nina Grigsby MD Work Phone: [facility] 10-31-2022 14:57-0400 Heart rate 90 /min Nina Grigsby MD Work Phone: [facility] 10-31-2022 14:57-0400 Respiratory rate 16 /min Nina Grigsby MD Work Phone: [facility] 10-31-2022 14:57-0400 SaO2% (BldA) [Mass fraction] 100 % Nina Grigsby MD Work Phone: [facility] 10-31-2022 14:57-0400 Systolic blood pressure 114 mm[Hg] Nina Grigsby MD Work Phone: [facility] 10-21-2022 14:08-0400 Body height 168.3 cm Chair Mendez Work Phone: [facility] 10-21-2022 13:42-0400 Body height 169.5 cm JC Limon MD Work Phone: [facility] 10-21-2022 13:35-0400 Body height 169.7 cm Nina Grigsby MD Work Phone: [facility] 10-21-2022 13:35-0400 Body temperature 97.9 [degF] Nina Grigsby MD Work Phone: [facility] 10-21-2022 13:35-0400 Body weight 61.24 kg Nina Grigsby MD Work Phone: [facility] 10-21-2022 13:35-0400 Diastolic blood pressure 79 mm[Hg] Nina Grigsby MD Work Phone: [facility] 10-21-2022 13:35-0400 Heart rate 92 /min Nina Grigsby MD Work Phone: [facility] 10-21-2022 13:35-0400 Respiratory rate 16 /min Nina Grigsby MD Work Phone: [facility] 10-21-2022 13:35-0400 SaO2% (BldA) [Mass fraction] 97 % Nina Grigsby MD Work Phone: [facility] 10-21-2022 13:35-0400 Systolic blood pressure 129 mm[Hg] Nina Grigsby MD Work Phone: [facility] 10-15-2022 09:06-0400 Body height 167.6 cm Nina Grigsby MD Work Phone: [facility] 10-15-2022 09:06-0400 Body temperature 97 [degF] Nina Grigsby MD Work Phone: [facility] 10-15-2022 09:06-0400 Body weight 60.6 kg Nina Grigsby MD Work Phone: [facility] 10-15-2022 09:06-0400 Diastolic blood pressure 89 mm[Hg] Nina Grigsby MD Work Phone: [facility] 10-15-2022 09:06-0400 Heart rate 68 /min Nina Grigsby MD Work Phone: [facility] 10-15-2022 09:06-0400 Respiratory rate 16 /min Nina Grigsby MD Work Phone: [facility] 10-15-2022 09:06-0400 SaO2% (BldA) [Mass fraction] 94 % Nina Grigsby MD Work Phone: [facility] 10-15-2022 09:06-0400 Systolic blood pressure 158 mm[Hg] Nina Grigsby MD Work Phone: [facility] 09-23-2022 10:19-0500 Body height 167.6 cm Nina Grigsby MD Work Phone: [facility] 09-23-2022 10:19-0500 Body temperature 97.59 [degF] Nina Grigsby MD Work Phone: [facility] 09-23-2022 10:19-0500 Body weight 60.69 kg Nina Grigsby MD Work Phone: [facility] 09-23-2022 10:19-0500 Diastolic blood pressure 71 mm[Hg] Nina Grigsby MD Work Phone: [facility] 09-23-2022 10:19-0500 Heart rate 85 /min Nina Grigsby MD Work Phone: [facility] 09-23-2022 10:19-0500 Respiratory rate 16 /min Nina Grigsby MD Work Phone: [facility] 09-23-2022 10:19-0500 SaO2% (BldA) [Mass fraction] 96 % Nina Grigsby MD Work Phone: [facility] 09-23-2022 10:19-0500 Systolic blood pressure 113 mm[Hg] Nina Grigsby MD Work Phone: [facility] 08-20-2022 09:52-0500 Body height 167.6 cm Nina Grigsby MD Work Phone: [facility] 08-20-2022 09:52-0500 Body temperature 98.8 [degF] Nina Grigsby MD Work Phone: [facility] 08-20-2022 09:52-0500 Body weight 62.14 kg Nina Grigsby MD Work Phone: [facility] 08-20-2022 09:52-0500 Diastolic blood pressure 64 mm[Hg] Nina Grigsby MD Work Phone: [facility] 08-20-2022 09:52-0500 Heart rate 99 /min Nina Grigsby MD Work Phone: [facility] 08-20-2022 09:52-0500 Respiratory rate 16 /min Nina Grigsby MD Work Phone: [facility] 08-20-2022 09:52-0500 SaO2% (BldA) [Mass fraction] 96 % Nina Grigsby MD Work Phone: [facility] 08-20-2022 09:52-0500 Systolic blood pressure 122 mm[Hg] Nina Grigsby MD Work Phone: [facility] 06-25-2022 10:01-0500 Body height 167.6 cm Patricia Miller SHEET [employer] WORK F[employer]NACE 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 Work Phone: [facility] 06-25-2022 10:01-0500 Body temperature 97.9 [degF] Patricia Miller SHEET [employer]AL WORK FURNACE 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 Work Phone: [facility] 06-25-2022 10:01-0500 Body weight 59.97 kg Patricia Miller APRN.HEALTH OFFICER Work Phone: [facility] 06-25-2022 10:01-0500 Diastolic blood pressure 74 mm[Hg] Patricia Miller SHEET [employer] WORK FURNACE 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 Work Phone: [facility] 06-25-2022 10:01-0500 Heart rate 101 /min Patricia Miller APRN.HEALTH OFFICER Work Phone: [facility] 06-25-2022 10:01-0500 Respiratory rate 16 /min Patricia Miller APRN.HEALTH OFFICER Work Phone: [facility] 06-25-2022 10:01-0500 SaO2% (BldA) [Mass fraction] 94 % Patricia Miller APRN.HEALTH OFFICER Work Phone: [facility] 06-25-2022 10:01-0500 Systolic blood pressure 139 mm[Hg] Patricia Miller APRN.HEALTH OFFICER Work Phone: [facility] 04-22-2022 11:27-0400 Body temperature 96.91 [degF] JC Limon MD Work Phone: [facility] 04-22-2022 11:27-0400 Body weight 60.33 kg JC Limon MD Work Phone: [facility] 04-22-2022 11:27-0400 Diastolic blood pressure 90 mm[Hg] JC Limon MD Work Phone: [facility] 04-22-2022 11:27-0400 Heart rate 103 /min JC Limon MD Work Phone: [facility] 04-22-2022 11:27-0400 Respiratory rate 18 /min JC Limon MD Work Phone: [facility] 04-22-2022 11:27-0400 SaO2% (BldA) [Mass fraction] 100 % JC Limon MD Work Phone: [facility] 04-22-2022 11:27-0400 Systolic blood pressure 169 mm[Hg] JC Limon MD Work Phone: [facility] 04-15-2022 09:12-0400 Body temperature 96.69 [degF] JC Limon MD Work Phone: [facility] 04-15-2022 09:12-0400 Body weight 58.97 kg JC Limon MD Work Phone: [facility] 04-15-2022 09:12-0400 Diastolic blood pressure 87 mm[Hg] JC Limon MD Work Phone: [facility] 04-15-2022 09:12-0400 Heart rate 90 /min JC Limon MD Work Phone: [facility] 04-15-2022 09:12-0400 Respiratory rate 18 /min JC Limon MD Work Phone: [facility] 04-15-2022 09:12-0400 SaO2% (BldA) [Mass fraction] 100 % JC Limon MD Work Phone: [facility] 04-15-2022 09:12-0400 Systolic blood pressure 143 mm[Hg] JC Limon MD Work Phone: [facility] 04-08-2022 09:15-0400 Body temperature 97.39 [degF] JC Limon MD Work Phone: [facility] 04-08-2022 09:15-0400 Body weight 54.88 kg JC Limon MD Work Phone: [facility] 04-08-2022 09:15-0400 Diastolic blood pressure 79 mm[Hg] JC Limon MD Work Phone: [facility] 04-08-2022 09:15-0400 Heart rate 101 /min JC Limon MD Work Phone: [facility] 04-08-2022 09:15-0400 Respiratory rate 16 /min JC Limon MD Work Phone: [facility] 04-08-2022 09:15-0400 SaO2% (BldA) [Mass fraction] 100 % JC Limon MD Work Phone: [facility] 04-08-2022 09:15-0400 Systolic blood pressure 159 mm[Hg] JC Limon MD Work Phone: [facility] 04-01-2022 09:48-0400 Body temperature 97.39 [degF] JC Limon MD Work Phone: [facility] 04-01-2022 09:48-0400 Body weight 58.97 kg JC Limon MD Work Phone: [facility] 04-01-2022 09:48-0400 Heart rate 98 /min JC Limon MD Work Phone: [facility] 04-01-2022 09:48-0400 SaO2% (BldA) [Mass fraction] 100 % JC Limon MD Work Phone: [facility] 03-26-2022 08:50-0400 Body temperature 97.5 [degF] JC Limon MD Work Phone: [facility] 03-26-2022 08:50-0400 Body weight 58.97 kg JC Limon MD Work Phone: [facility] 03-26-2022 08:50-0400 Diastolic blood pressure 62 mm[Hg] JC Limon MD Work Phone: [facility] 03-26-2022 08:50-0400 Heart rate 92 /min JC Limon MD Work Phone: [facility] 03-26-2022 08:50-0400 Respiratory rate 16 /min JC Limon MD Work Phone: [facility] 03-26-2022 08:50-0400 SaO2% (BldA) [Mass fraction] 99 % JC Limon MD Work Phone: [facility] 03-26-2022 08:50-0400 Systolic blood pressure 114 mm[Hg] JC Limon MD Work Phone: [facility] 03-19-2022 09:20-0400 Body height 167.6 cm Patricia Miller APRN.HEALTH OFFICER Work Phone: [facility] 03-19-2022 09:20-0400 Body temperature 97.59 [degF] Patricia Miller APRN.HEALTH OFFICER Work Phone: [facility] 03-19-2022 09:20-0400 Body weight 59.51 kg Patricia Miller APRN.HEALTH OFFICER Work Phone: [facility] 03-19-2022 09:20-0400 Diastolic blood pressure 78 mm[Hg] Patricia Miller APRN.HEALTH OFFICER Work Phone: [facility] 03-19-2022 09:20-0400 Heart rate 90 /min Patricia Miller APRN.HEALTH OFFICER Work Phone: [facility] 03-19-2022 09:20-0400 Respiratory rate 16 /min Patricia Miller APRN.HEALTH OFFICER Work Phone: [facility] 03-19-2022 09:20-0400 SaO2% (BldA) [Mass fraction] 97 % Patricia Miller APRN.HEALTH OFFICER Work Phone: [facility] 03-19-2022 09:20-0400 Systolic blood pressure 117 mm[Hg] Patricia Miller APRN.HEALTH OFFICER Work Phone: [facility] 02-20-2022 14:20-0400 Body height 167.6 cm Patricia Miller APRN.HEALTH OFFICER Work Phone: [facility] 02-20-2022 14:20-0400 Body temperature 97.2 [degF] Patricia Miller APRN.HEALTH OFFICER Work Phone: [facility] 02-20-2022 14:20-0400 Body weight 59.88 kg Patricia Miller APRN.HEALTH OFFICER Work Phone: [facility] 02-20-2022 14:20-0400 Diastolic blood pressure 60 mm[Hg] Patricia Miller APRN.HEALTH OFFICER Work Phone: [facility] 02-20-2022 14:20-0400 Heart rate 108 /min Patricia Miller APRN.HEALTH OFFICER Work Phone: [facility] 02-20-2022 14:20-0400 Respiratory rate 16 /min Patricia Miller APRN.HEALTH OFFICER Work Phone: [facility] 02-20-2022 14:20-0400 SaO2% (BldA) [Mass fraction] 98 % Patricia Miller APRN.HEALTH OFFICER Work Phone: [facility] 02-20-2022 14:20-0400 Systolic blood pressure 95 mm[Hg] Patricia Miller APRN.HEALTH OFFICER Work Phone: [facility] 02-07-2022 15:33-0400 Body height 167.6 cm Patricia Miller APRN.HEALTH OFFICER Work Phone: [facility] 02-07-2022 15:33-0400 Body temperature 97.59 [degF] Patricia Miller APRN.HEALTH OFFICER Work Phone: [facility] 02-07-2022 15:33-0400 Body weight 59.42 kg Patricia Miller APRN.HEALTH OFFICER Work Phone: [facility] 02-07-2022 15:33-0400 Diastolic blood pressure 59 mm[Hg] Patricia Miller APRN.HEALTH OFFICER Work Phone: [facility] 02-07-2022 15:33-0400 Heart rate 110 /min Patricia Miller APRN.HEALTH OFFICER Work Phone: [facility] 02-07-2022 15:33-0400 Respiratory rate 16 /min Patricia Miller APRN.HEALTH OFFICER Work Phone: [facility] 02-07-2022 15:33-0400 SaO2% (BldA) [Mass fraction] 98 % Patricia Miller APRN.HEALTH OFFICER Work Phone: [facility] 02-07-2022 15:33-0400 Systolic blood pressure 110 mm[Hg] Patricia Miller APRN.HEALTH OFFICER Work Phone: [facility] 01-30-2022 15:11-0400 Body temperature 96.69 [degF] JC Limon MD Work Phone: [facility] 01-30-2022 15:11-0400 Body weight 60.33 kg JC Limon MD Work Phone: [facility] 01-30-2022 15:11-0400 Diastolic blood pressure 67 mm[Hg] JC Limon MD Work Phone: [facility] 01-30-2022 15:11-0400 Heart rate 91 /min JC Limon MD Work Phone: [facility] 01-30-2022 15:11-0400 SaO2% (BldA) [Mass fraction] 100 % JC Limon MD Work Phone: [facility] 01-30-2022 15:11-0400 Systolic blood pressure 106 mm[Hg] JC Limon MD Work Phone: [facility] 01-29-2022 08:42-0400 Body height 167.6 cm Verito Whelan MD Work Phone: [facility] 01-29-2022 08:42-0400 Body temperature 97.39 [degF] Verito Whelan MD Work Phone: [facility] 01-29-2022 08:42-0400 Body weight 58.8 kg Verito Whelan MD Work Phone: [facility] 01-29-2022 08:42-0400 Diastolic blood pressure 64 mm[Hg] Verito Whelan MD Work Phone: [facility] 01-29-2022 08:42-0400 Heart rate 60 /min Verito Whelan MD Work Phone: [facility] 01-29-2022 08:42-0400 SaO2% (BldA) [Mass fraction] 94 % Verito Whelan MD Work Phone: [facility] 01-29-2022 08:42-0400 Systolic blood pressure 139 mm[Hg] Verito Whelan MD Work Phone: [facility] 01-22-2022 13:39-0400 Body height 168.8 cm Nina Grigsby MD Work Phone: [facility] 01-22-2022 13:39-0400 Body temperature 98.01 [degF] Nina Grigsby MD Work Phone: [facility] 01-22-2022 13:39-0400 Body weight 59.78 kg Nina Grigsby MD Work Phone: [facility] 01-22-2022 13:39-0400 Diastolic blood pressure 61 mm[Hg] Nina Grigsby MD Work Phone: [facility] 01-22-2022 13:39-0400 Heart rate 90 /min Nina Grigsby MD Work Phone: [facility] 01-22-2022 13:39-0400 Respiratory rate 18 /min Nina Grigsby MD Work Phone: [facility] 01-22-2022 13:39-0400 SaO2% (BldA) [Mass fraction] 100 % Nina Grigsby MD Work Phone: [facility] 01-22-2022 13:39-0400 Systolic blood pressure 110 mm[Hg] Nina Grigsby MD Work Phone: [facility] 01-14-2022 08:21-0400 Body height 168.8 cm Nina Grigsby MD Work Phone: [facility] 01-14-2022 08:21-0400 Body temperature 97.2 [degF] Nina Grigsby MD Work Phone: [facility] 01-14-2022 08:21-0400 Body weight 60.24 kg Nina Grigsby MD Work Phone: [facility] 01-14-2022 08:21-0400 Diastolic blood pressure 65 mm[Hg] Nina Grigsby MD Work Phone: [facility] 01-14-2022 08:21-0400 Heart rate 85 /min Nina Grigsby MD Work Phone: [facility] 01-14-2022 08:21-0400 Respiratory rate 16 /min Nina Grigsby MD Work Phone: [facility] 01-14-2022 08:21-0400 SaO2% (BldA) [Mass fraction] 99 % Nina Grigsby MD Work Phone: [facility] 01-14-2022 08:21-0400 Systolic blood pressure 123 mm[Hg] Nina Grigsby MD Work Phone: [facility] 12-24-2021 09:26-0400 Body height 168.8 cm Nina Grigsby MD Work Phone: [facility] 12-24-2021 09:26-0400 Body temperature 97.81 [degF] Nina Grigsby MD Work Phone: [facility] 12-24-2021 09:26-0400 Body weight 61.05 kg Nina Grigsby MD Work Phone: [facility] 12-24-2021 09:26-0400 Diastolic blood pressure 70 mm[Hg] Nina Grigsby MD Work Phone: [facility] 12-24-2021 09:26-0400 Heart rate 81 /min Nina Grigsby MD Work Phone: [facility] 12-24-2021 09:26-0400 Respiratory rate 16 /min Nina Grigsby MD Work Phone: [facility] 12-24-2021 09:26-0400 SaO2% (BldA) [Mass fraction] 100 % Nina Grigsby MD Work Phone: [facility] 12-24-2021 09:26-0400 Systolic blood pressure 120 mm[Hg] Nina Grigsby MD Work Phone: [facility] 12-03-2021 09:29-0400 Body height 168.8 cm Yusef Jessica PA-C Work Phone: [facility] 12-03-2021 09:29-0400 Body temperature 97.81 [degF] Yusef Jessica PA-C Work Phone: [facility] 12-03-2021 09:29-0400 Body weight 59.69 kg Yusef Jessica PA-C Work Phone: [facility] 12-03-2021 09:29-0400 Diastolic blood pressure 63 mm[Hg] Yusef Jessica PA-C Work Phone: [facility] 12-03-2021 09:29-0400 Heart rate 92 /min Yusef Jessica PA-C Work Phone: [facility] 12-03-2021 09:29-0400 Respiratory rate 16 /min Yusef Jessica PA-C Work Phone: [facility] 12-03-2021 09:29-0400 SaO2% (BldA) [Mass fraction] 98 % Yusef Jessica PA-C Work Phone: [facility] 12-03-2021 09:29-0400 Systolic blood pressure 125 mm[Hg] Yusef Jessica PA-C Work Phone: [facility] 11-30-2021 10:29-0400 Body height 168.8 cm Patricia Miller APRN.HEALTH OFFICER Work Phone: [facility] 11-30-2021 10:29-0400 Body temperature 97.3 [degF] Patricia Miller APRN.HEALTH OFFICER Work Phone: [facility] 11-30-2021 10:29-0400 Body weight 58.24 kg Patricia Miller APRN.HEALTH OFFICER Work Phone: [facility] 11-30-2021 10:29-0400 Diastolic blood pressure 55 mm[Hg] Patricia Miller APRN.HEALTH OFFICER Work Phone: [facility] 11-30-2021 10:29-0400 Heart rate 90 /min Patricia Miller APRN.HEALTH OFFICER Work Phone: [facility] 11-30-2021 10:29-0400 Respiratory rate 16 /min Patricia Miller APRN.HEALTH OFFICER Work Phone: [facility] 11-30-2021 10:29-0400 SaO2% (BldA) [Mass fraction] 98 % Patricia Miller APRN.HEALTH OFFICER Work Phone: [facility] 11-30-2021 10:29-0400 Systolic blood pressure 95 mm[Hg] Patricia Miller APRN.HEALTH OFFICER Work Phone: [facility] 11-26-2021 09:24-0400 Body height 168.8 cm Nina Grigsby MD Work Phone: [facility] 11-26-2021 09:24-0400 Body temperature 97.5 [degF] Nina Grigsby MD Work Phone: [facility] 11-26-2021 09:24-0400 Body weight 59.06 kg Nina Grigsby MD Work Phone: [facility] 11-26-2021 09:24-0400 Diastolic blood pressure 65 mm[Hg] Nina Grigsby MD Work Phone: [facility] 11-26-2021 09:24-0400 Heart rate 75 /min Nina Grigsby MD Work Phone: [facility] 11-26-2021 09:24-0400 Respiratory rate 16 /min Nina Grigsby MD Work Phone: [facility] 11-26-2021 09:24-0400 SaO2% (BldA) [Mass fraction] 100 % Nina Grigsby MD Work Phone: [facility] 11-26-2021 09:24-0400 Systolic blood pressure 111 mm[Hg] Nina Grigsby MD Work Phone: [facility] 11-21-2021 15:10-0400 Body temperature 98.6 [degF] Chair [place] Work Phone: [facility] 11-21-2021 15:10-0400 Diastolic blood pressure 65 mm[Hg] Chair [place] Work Phone: [facility] 11-21-2021 15:10-0400 Heart rate 78 /min Chair [place] Work Phone: [facility] 11-21-2021 15:10-0400 Respiratory rate 16 /min Chair [place] Work Phone: [facility] 11-21-2021 15:10-0400 SaO2% (BldA) [Mass fraction] 99 % Chair [place] Work Phone: [facility] 11-21-2021 15:10-0400 Systolic blood pressure 119 mm[Hg] Chair [place] Work Phone: [facility] 11-19-2021 10:41-0400 Diastolic blood pressure 71 mm[Hg] Chair [place] Work Phone: [facility] 11-19-2021 10:41-0400 Systolic blood pressure 123 mm[Hg] Chair [place] Work Phone: [facility] 11-19-2021 09:20-0400 Body temperature 98.4 [degF] Chair Jose Work Phone: [facility] 11-19-2021 09:20-0400 Heart rate 90 /min Chair Jose Work Phone: [facility] 11-19-2021 09:20-0400 Respiratory rate 18 /min Chair Jose Work Phone: [facility] 11-19-2021 09:20-0400 SaO2% (BldA) [Mass fraction] 99 % Chair [place] Work Phone: [facility] 11-16-2021 10:13-0400 Diastolic blood pressure 95 mm[Hg] Chair [place] Work Phone: [facility] 11-16-2021 10:13-0400 Systolic blood pressure 170 mm[Hg] Chair [place] Work Phone: [facility] 11-16-2021 09:02-0400 Body temperature 97.39 [degF] Chair Jose Work Phone: [facility] 11-16-2021 09:02-0400 Heart rate 63 /min Chair [place] Work Phone: [facility] 11-16-2021 09:02-0400 Respiratory rate 18 /min Chair [place] Work Phone: [facility] 11-16-2021 09:02-0400 SaO2% (BldA) [Mass fraction] 99 % Chair [place] Work Phone: [facility] 11-15-2021 14:36-0400 Body temperature 97 [degF] Chair Jose Work Phone: [facility] 11-15-2021 14:36-0400 Diastolic blood pressure 74 mm[Hg] Chair [place] Work Phone: [facility] 11-15-2021 14:36-0400 Heart rate 65 /min Chair Jose Work Phone: [facility] 11-15-2021 14:36-0400 Respiratory rate 18 /min Chair [place] Work Phone: [facility] 11-15-2021 14:36-0400 SaO2% (BldA) [Mass fraction] 99 % Chair [place] Work Phone: [facility] 11-15-2021 14:36-0400 Systolic blood pressure 137 mm[Hg] Chair [place] Work Phone: [facility] 11-13-2021 11:36-0400 Diastolic blood pressure 69 mm[Hg] Chair [place] Work Phone: [facility] 11-13-2021 11:36-0400 Heart rate 70 /min Chair [place] Work Phone: [facility] 11-13-2021 11:36-0400 Respiratory rate 18 /min Chair [place] Work Phone: [facility] 11-13-2021 11:36-0400 SaO2% (BldA) [Mass fraction] 99 % Chair Jose Work Phone: [facility] 11-13-2021 11:36-0400 Systolic blood pressure 116 mm[Hg] Chair [place] Work Phone: [facility] 11-05-2021 08:52-0400 Body height 168.8 cm Patricia Miller APRN.HEALTH OFFICER Work Phone: [facility] 11-05-2021 08:52-0400 Body temperature 97.3 [degF] Patricia Miller APRN.HEALTH OFFICER Work Phone: [facility] 11-05-2021 08:52-0400 Body weight 58.6 kg Patricia Miller SHEET METAL WORK FURNACE 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 Work Phone: [facility] 11-05-2021 08:52-0400 Diastolic blood pressure 66 mm[Hg] Patricia Miller SHEET METAL WORK FURNACE 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 Work Phone: [facility] 11-05-2021 08:52-0400 Heart rate 93 /min Patricia Miller SHEET METAL WORK FURNACE 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 Work Phone: [facility] 11-05-2021 08:52-0400 Respiratory rate 16 /min Patricia Miller SHEET METAL WORK FURNACE 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 Work Phone: [facility] 11-05-2021 08:52-0400 SaO2% (BldA) [Mass fraction] 98 % Patricia Miller SHEET METAL WORK FURNACE 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 Work Phone: [facility] 11-05-2021 08:52-0400 Systolic blood pressure 115 mm[Hg] Patricia Miller SHEET METAL WORK FURNACE 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 Work Phone: [facility] 10-24-2021 14:18-0400 Body temperature 97.39 [degF] JC Limon MD Work Phone: [facility] 10-24-2021 14:18-0400 Body weight 58.51 kg JC Limon MD Work Phone: [facility] 10-24-2021 14:18-0400 Diastolic blood pressure 67 mm[Hg] JC Limon MD Work Phone: [facility] 10-24-2021 14:18-0400 Heart rate 101 /min JC Limon MD Work Phone: [facility] 10-24-2021 14:18-0400 Respiratory rate 16 /min JC Limon MD Work Phone: [facility] 10-24-2021 14:18-0400 SaO2% (BldA) [Mass fraction] 98 % JC Limon MD Work Phone: [facility] 10-24-2021 14:18-0400 Systolic blood pressure 111 mm[Hg] JC Limon MD Work Phone: [facility] 10-19-2021 09:58-0400 Body height 168.8 cm Renetta Ponce MD Work Phone: [facility] 10-19-2021 09:58-0400 Body temperature 97.59 [degF] Renetta Ponce MD Work Phone: [facility] 10-19-2021 09:58-0400 Body weight 58.33 kg Renetta Ponce MD Work Phone: [facility] 10-19-2021 09:58-0400 Diastolic blood pressure 72 mm[Hg] Renetta Ponce MD Work Phone: [facility] 10-19-2021 09:58-0400 Heart rate 98 /min Renetta Ponce MD Work Phone: [facility] 10-19-2021 09:58-0400 Respiratory rate 20 /min Renetta Ponce MD Work Phone: [facility] 10-19-2021 09:58-0400 SaO2% (BldA) [Mass fraction] 100 % Renetta Ponce MD Work Phone: [facility] 10-19-2021 09:58-0400 Systolic blood pressure 127 mm[Hg] Renetta Ponce MD Work Phone: [facility] 10-11-2021 15:44-0400 Body height 170.2 cm Aracelis Carrillo APRN.HEALTH OFFICER Work Phone: [facility] 10-11-2021 15:44-0400 Body temperature 98.71 [degF] Aracelis Carrillo SHEET METAL WORK FURNACE 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 Work Phone: [facility] 10-11-2021 15:44-0400 Body weight 58.97 kg Aracelis Carrillo SHEET METAL WORK FURNACE 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 Work Phone: [facility] 10-11-2021 15:44-0400 Diastolic blood pressure 58 mm[Hg] Aracelis Carrillo SHEET METAL WORK FURNACE 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 Work Phone: [facility] 10-11-2021 15:44-0400 Heart rate 85 /min Aracelis Carrillo APRN.CNP Work Phone: [facility] 10-11-2021 15:44-0400 SaO2% (BldA) [Mass fraction] 98 % Aracelis Carrillo APRN.HEALTH OFFICER Work Phone: [facility] 10-11-2021 15:44-0400 Systolic blood pressure 99 mm[Hg] Aracelis Carrillo APRN.HEALTH OFFICER Work Phone: [facility] Encounters Encounter Date Encounter Type Care Provider Facility Start: 04-20-2024 ambulatory CATHETER BUILDER Enrique L Cate Facil ity:[facility] Start: 04-12-2024 ambulatory CATHETER BUILDER Enrique L Cate Facil ity:[facility] [place] Start: 03-31-2024 End: 03-31-2024 Telephone encounter Denita Rai RN Work Phone: Hematology/Oncology Comment on above: Care Coordination (D ischarge Follow Up Call) Start: 03-31-2024 ambulatory CATHETER BUILDER Enrique L Cate Facil ity:[facility] [place] Start: 03-28-2024 End: 03-29-2024 Refill Estella Fish APRN.HEALTH OFFICER Work Phone: Hematology/Oncology Comment on above: Refill Request Start: 03-19-2024 End: 03-20-2024 ambulatory NON STAFF Facility:[facility] Start: 03-19-2024 End: 03-20-2024 Evaluation and management of inpatient [facility] [place] Work Phone: Start: 03-19-2024 End: 03-20-2024 observation encounter NON STAFF [facility] Work Phone: Start: 03-19-2024 End: 03-19-2024 Emergency department patient visit [facility]-Emergency Room Work Phone: Start: 03-18-2024 End: 03-18-2024 Emergency department patient visit [facility]gency [facility] Work Phone: Start: 03-18-2024 End: [...] Start: 03-17-2024 End: 03-17-2024 ambulatory ESTELLA FISH Facility:[facility] Start: 03-17-2024 End: 03-17-2024 Nutrition therapy Estella Fish APRN.HEALTH OFFICER Work Phone: Palliative Medicine Comment on above: Encounter for pallia tive care (Primary Dx); Neuropathy due to chemotherapeutic drug (HCC); Neoplasm related pain; Chronic left shoulder pain; Malignant neoplasm of upper lobe of left lung (HCC); Nausea; Weight loss, unintentional; Protein-calorie malnutrition, unspecified severity (HCC); Anxiety Start: 03-17-2024 End: 03-17-2024 Telemedicine consultation with patient Estella Fish APRN.HEALTH OFFICER Work Phone: Palliative Medicine Start: 03-17-2024 End: 03-17-2024 ambulatory SAILAJA Esposito Facility:[facility] Start: 03-15-2024 End: 03-15-2024 Telephone encounter Denita Rai RN Work Phone: Hematology/Oncology Comment on above: Care Coordination (A ppointment Questions) Start: 03-15-2024 End: 03-15-2024 ambulatory MERARY LUCSA Facility:[facility] Start: 03-15-2024 End: 03-15-2024 Patient encounter procedure Merary Lucas MD Work Phone: Pulmonary Medicine Comment on above: Centrilobular emphys luke (HCC) (Primary Dx); Malignant neoplasm of upper lobe of left lung (HCC); Coronary artery disease involving [place] coronary artery of [place] heart without angina pectoris; PAD (peripheral artery disease) (HCC); Dyspnea on exertion Start: 03-09-2024 End: 03-11-2024 Telephone encounter Deborah Warner settlement clerk/Oncology Comment on above: Patient Update Orders Start: [...] [C34.92] Start: 03-01-2024 Telephone encounter Estella Fish APRN.HEALTH OFFICER Work Phone: Palliative Medicine Comment on above: Refill Request Start: 03-01-2024 End: 03-01-2024 ambulatory CATHETER BUILDER Enrique Esposito Facility:[facility] Start: 02-24-2024 End: 03-10-2024 Telephone encounter Denita [...] 02-07-2024 End: 02-07-2024 Emergency department patient visit [facility]-Emergency Room Work Phone: Start: 02-06-2024 End: 02-06-2024 [facility] Start: 02-04-2024 Refill Nina Grigsby MD Work Phone: [facility] Comment on above: Refill Request Start: 02-03-2024 Telephone encounter Yusef Spicer sser PA-C [facility] on [facility]: [facility] Start: 02-03-2024 End: 02-03-2024 Office outpatient visit 25 minutes Yusef M Jessica PA-C Work Phone: Hematology/Oncology Comment on above: 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 ) Start: 01-12-2024 End: 01-12-2024 ambulatory CATHETER BUILDER Enrique L [facility] Facility:[facility] Start: 01-09-2024 Telephone encounter Bernadine Rodriguez RN Work Phone: Hematology/Oncology Comment on above: Care Coordination (i nsomnia) Start: 01-08-2024 End: 01-08-2024 [facility] Start: 12-26-2023 Telephone encounter Julieth Tapia tank builder helper Services Comment on above: Care Coordination (P ain ) Insurance Authorizat ion Insurance Authorizat ion (Oxy IR 10 mg) Start: 12-24-2023 Patient encounter hang Limon MD Work Phone: Radiation Oncology Start: 12-24-2023 Radiation Oncology Note Hector Limon MD Work [...] Start: 12-23-2023 End: 12-23-2023 ambulatory ENRIQUE ESPOSITO Facility:[facility] Start: 12-22-2023 End: 12-22-2023 Patient encounter procedure Hector Limon MD Work Phone: Radiation Oncology Comment on above: Malignant neoplasm o f upper lobe of left lung (HCC) (Primary Dx) Start: 12-22-2023 End: 12-22-2023 ambulatory Hector LIMON Facility:[facility] Start: 12-19-2023 End: 12-19-2023 ambulatory Hector LIMON Facility:[facility] Start: 12-18-2023 End: 12-18-2023 ambulatory Hector LIMON Facility:[facility] Start: 12-17-2023 End: 12-17-2023 ambulatory Hector LIMON Facility:[facility] Start: 12-16-2023 End: 12-16-2023 ambulatory Hector LIMON Facility:[facility] Start: 12-16-2023 End: 12-16-2023 Patient encounter procedure Hector Limon MD Work Phone: Radiation Oncology Comment on above: Malignant neoplasm o f upper lobe of left lung (HCC) (Primary Dx) Start: 12-16-2023 Telephone encounter Estella Fish APRN.HEALTH OFFICER Work Phone: Radiation Oncology Comment on above: Patient Update; Medi cation Problem Start: 12-12-2023 End: 12-12-2023 ambulatory Hector LIMON Facility:[facility] Start: 12-11-2023 End: 12-11-2023 ambulatory Hector LIMON Facility:[facility] Start: 12-10-2023 End: 12-10-2023 ambulatory Hector LIMON Facility:[facility] Start: 12-10-2023 End: 12-10-2023 Patient encounter [...] Planning Start: 12-03-2023 Telephone encounter Estella Fish APRN.HEALTH OFFICER Work Phone: Radiation Oncology Comment on above: Patient Update Start: 12-03-2023 End: 12-03-2023 Subsequent hospital visit by physician Hector Limon MD Work Phone: Radiology [facility] Comment on above: Malignant neoplasm o f upper lobe of left lung (HCC) [C34.12] Start: 12-03-2023 End: 12-04-2023 ambulatory ENRIQUE ESPOSITO Facility:[facility] Start: 12-02-2023 End: 12-02-2023 ambulatory Chair Bee Mendez Work Phone: Hematology/Oncology [...] Comment on above: Research (IRB [id number] Informed Consent) Start: 11-25-2023 End: 11-26-2023 ambulatory Chair Bee Mendez Work Phone: Hematology/Oncology Comment on above: Malignant neoplasm o f upper lobe of left lung (HCC) (Primary Dx) Start: 11-25-2023 End: 11-25-2023 Subsequent hospital visit by physician Arrival Time Radiology Work Phone: Radiology [facility] Comment on above: 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] Start: 11-24-2023 Telephone encounter Nina cutler MD Work Phone: Hematology/Oncology Comment on above: Orders Start: 11-21-2023 End: 11-21-2023 ambulatory ESTELLA FISH Facility:[facility] Start: 11-21-2023 End: 11-21-2023 Patient encounter procedure Estella Fish SHEET METAL WORK FURNACE 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 Work Phone: Palliative Medicine Comment on above: [...] LFTs Start: 10-21-2023 Telephone encounter Estella Fish APRN.HEALTH OFFICER Work Phone: Hematology/Oncology Comment on above: Pain Start: 10-21-2023 End: 10-21-2023 ambulatory ENRIQUE RITA CATE Facility:[facility] Start: 10-21-2023 End: 10-21-2023 Subsequent hospital visit by physician Arrival Time Radiology Work Phone: Radiology [facility] Comment on above: 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] Start: 10-20-2023 End: 10-20-2023 Refill Nina Grigsby MD Work Phone: [facility] Comment on above: Refill Request 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); Tonsillar mass; Hypothyroidism due to medication; Cancer associated pain; Centrilobular emphysema (HCC) Start: 10-15-2023 End: 10-15-2023 ambulatory CATHETER BUILDER Enrique L Cate Facility:[facility] [place] Start: 10-08-2023 End: 10-08-2023 ambulatory CATHETER BUILDER Enrique L Cate Facility: [facility] [place] Start: 09-22-2023 End: 09-22-2023 Nutrition therapy Dominique [...] Start: 09-15-2023 End: 09-15-2023 ambulatory NINA GRIGSBY Facility:[facility] Start: 09-02-2023 End: 09-02-2023 ambulatory CATHETER BUILDER Enrique L Cate Facility:[facility] Start: 08-26-2023 Telephone encounter Denita rushing RN [...] associated pain Start: 08-20-2023 End: 08-20-2023 ambulatory CATHETER BUILDER [facility] Start: 08-15-2023 End: 08-15-2023 ambulatory ESTELLA FISH Facility:[facility] Start: 07-28-2023 End: 07-28-2023 ambulatory PATRICIA MILLER Facility:[facility] Start: 07-23-2023 End: 07-23-2023 ambulatory CATHETER BUILDER Enrique L Cate Facility:[facility] [place] Start: 07-09-2023 End: 07-09-2023 ambulatory CATHETER BUILDER Enrique L Cate Facility:[facility] [place] Start: 06-30-2023 End: 06-30-2023 Patient encounter procedure Nina Grigsby MD Work Phone: [facility] Start: 06-30-2023 End: 07-01-2023 ambulatory Nina Grigsby MD Work Phone: Hematology/Oncology Comment on above: 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); Tonsillar mass; Primary hypertension; Centrilobular emphysema (HCC); Coronary artery disease involving [place] coronary artery of [place] heart without angina pectoris; Hypothyroidism due to medication; Cancer related pain Start: 06-24-2023 End: 06-24-2023 ambulatory CHRISTINA AZUL Facility:[facility] Start: 06-23-2023 End: 06-23-2023 ambulatory Hector LIMON Facility:[facility] Start: 06-20-2023 End: 06-20-2023 ambulatory CHRISTINA AZUL Facility:[facility] Start: 06-19-2023 End: 06-19-2023 ambulatory CHRISTINA AZUL Facility:[facility] Start: 06-18-2023 End: 06-18-2023 ambulatory CHRISTINA AZUL Facility:[facility] Start: 06-13-2023 End: 06-13-2023 ambulatory ESTELLA FISH Facility:[facility] Start: 06-13-2023 End: 06-13-2023 Patient encounter procedure Estella Fish SHEET METAL WORK FURNACE 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 Work Phone: Palliative Medicine Comment on above: Palliative care by s pecialist (Primary Dx); 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); Cancer related pain; Opioid contract exists; Insomnia due to medical condition; Anorexia; Protein-calorie malnutrition, unspecified severity (HCC); Nausea Start: 06-10-2023 End: 06-10-2023 Patient encounter procedure [facility] Provider [facility] Department Comment on above: Oropharnyx cancer (H CC) (Primary Dx) Start: 06-10-2023 Radiation Oncology Note Hector Limon MD Work Phone: Radiation Oncology Comment on above: Simulation Note Treatment Planning Start: 06-10-2023 End: 06-10-2023 ambulatory Hector LIMON Facility:[facility] Start: 06-03-2023 Refill Nina Grigsby MD Work Phone: Hematology/Oncology Comment on above: Erroneous encounter- disregard Start: 06-02-2023 End: 06-02-2023 Patient encounter procedure Patricia Miller SHEET METAL WORK FURNACE 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 Work Phone: [facility] Start: 06-02-2023 End: 06-02-2023 ambulatory Patricia Miller SHEET METAL WORK FURNACE 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 Work Phone: Hematology/Oncology Comment on above: Malignant neoplasm o f upper lobe of left lung (HCC) (Primary Dx); Centrilobular emphysema (HCC); CAD in [place] artery; PVD (peripheral vascular disease) (HCC); Cancer related pain; Tonsillar mass; Abnormal LFTs; Anxiety; Hypothyroidism due to medication Start: 05-30-2023 End: 05-30-2023 Patient encounter procedure Hector Limon MD Work Phone: Radiation Oncology Comment on above: Oropharnyx cancer (H CC) (Primary Dx) Start: 05-30-2023 End: 05-30-2023 ambulatory CHRISTINA AZUL Facility:[facility] Start: 05-27-2023 End: 05-27-2023 ambulatory NINA GRIGSBY Facility:[facility] Start: 05-27-2023 End: 05-27-2023 Patient encounter [...] End: 05-16-2023 Patient encounter procedure Estella Fish SHEET METAL WORK FURNACE 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 Work Phone: Palliative Medicine Comment on above: Palliative care by s pecialist (Primary Dx); Neuropathy due to chemotherapeutic drug (HCC) ; Nausea; Anorexia; Protein-calorie malnutrition, unspecified severity (HCC); Anxiety; Insomnia due to medical condition Refill Request Start: 05-16-2023 End: 05-16-2023 ambulatory ESTELLA FISH Facility:[facility] Start: 05-15-2023 Telephone encounter Denita rushing RN Work Phone: Hematology/Oncology Comment on above: Care Coordination (T SH Results) Care Coordination (P ain; Constipation) Start: 05-13-2023 Telephone encounter Analisa Villatoro [facility] Work Phone: Hematology/Oncology Comment on above: Treatment Planning Refill Request Start: 05-13-2023 End: 05-13-2023 ambulatory NINA Naranjo GRAPEVIEW Facility:[facility] Start: 05-12-2023 End: 05-12-2023 [facility] Start: 05-08-2023 Telephone encounter Denita rushing RN Work Phone: Hematology/Oncology Comment on above: Care Coordination (S ore Throat) Start: 05-05-2023 Refill Analisa Victor nathalia [facility] Work Phone: [facility] Comment on above: Refill Request Start: 04-23-2023 Telephone encounter Denita rushing RN Work Phone: Hematology/Oncology Comment on above: Care Coordination (T SH Results) Start: 04-22-2023 End: 04-23-2023 ambulatory [facility] Facility:[facility] Start: 04-22-2023 End: 04-22-2023 ambulatory CHRISTINA AZUL Facility:[facility] Start: 04-16-2023 End: 04-16-2023 ambulatory CATHETER BUILDER Enrique Jaci Esposito Facility:[facility] Start: 04-08-2023 Telephone encounter Denita rushing RN Work Phone: Hematology/Oncology Comment on above: Care Coordination (V accine Question) Start: 04-01-2023 End: 04-01-2023 Patient encounter procedure Patricia Miller APRN.HEALTH OFFICER Work Phone: JO[facility] Start: 04-01-2023 End: 04-01-2023 ambulatory Patricia Miller SHEET MET[employer] WORK FURNACE 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 Work Phone: Hematology/Oncology Comment on above: Primary [...] faxed Start: 01-08-2023 Telephone encounter Minna Madrigal SAILING INSTRUCTOR H ematology/Oncology Comment on above: Social Work Services Appointment Start: 01-07-2023 Telephone encounter Patricia davidson APRN.CNP Work Phone: Cancer Appts Comment on above: [...] patient visit MD Christina Azul Work Phone: [facility] Work Phone: Start: 01-03-2023 Telephone [...] 11-25-2022 End: 11-25-2022 Nutrition therapy Patricia Miller APRN.HEALTH OFFICER Work Phone: Hematology/Oncology Comment on above: Malignant neoplasm o f upper lobe of left lung (HCC) (Primary Dx); Centrilobular emphysema (HCC); Abnormal LFTs; Cancer related pain; PVD (peripheral vascular disease) (HCC); Malaise and fatigue; Protein-calorie malnutrition, unspecified severity (HCC) Start: 11-25-2022 End: 11-25-2022 Patient encounter procedure Patricia Paul ARBOLEDA Work Phone: JOSE Start: 11-21-2022 Telephone encounter [...] Orders Start: 11-12-2022 Patient encounter procedure Hector Limon MD Work Phone: [facility] Start: 11-12-2022 Radiation Oncology Note G Vik [...] 11-04-2022 End: 11-04-2022 Patient encounter procedure Hector Limon MD Work [...] 10-21-2022 End: 10-21-2022 Patient encounter procedure G Erasto Limon MD Work Phone: [place] Comment on above: Malignant neoplasm o f [...] Nina Grigsby MD Work Phone: JO[facility] Start: 10-10-2022 End: 10-10-2022 ambulatory [facility] Facility: Start: 09-23-2022 End: 09-23-2022 ambulatory Nina Grigsby MD Work Phone: Hematology/Oncology Comment on above: Malignant neoplasm o f upper lobe of left lung (HCC) (Primary Dx); Lung nodules; Centrilobular emphysema (HCC) Start: 09-23-2022 End: 09-23-2022 Patient encounter procedure Nina Grigsby MD Work Phone: JO[facility] Start: 09-20-2022 End: 09-20-2022 ambulatory [facility] Start: 09-19-2022 End: 09-20-[address] JONATHAN CHANEY Facility:[facility] Start: 09-18-2022 End: 09-18-2022 ambulatory JONATHAN [facility] Start: 09-11-2022 Telephone encounter Denita [...] Start: 06-25-2022 End: 06-25-2022 ambulatory Patricia Miller APRN.HEALTH OFFICER Work Phone: Hematology/Oncology Comment on above: Malignant neoplasm o f upper lobe of left lung (HCC) (Primary Dx); Anemia due to antineoplastic chemotherapy Start: 06-25-2022 End: 06-25-2022 Patient encounter procedure Patricia Miller APRN.HEALTH OFFICER Work Phone: JO[facility] Comment on above: Thyroid [...] procedure Hector Limon MD Work Phone: [facility] Start: 05-01-2022 [...] 04-12-2022 End: 04-13-[address] BRANDON HENRY Facility: Start: 04-08-2022 End: 04-08-2022 Patient encounter procedure [...] 04-01-2022 End: 04-01-2022 Patient encounter procedure Hector Erasto Limon MD Work Phone: Radiation Oncology Comment on above: Malignant neoplasm o f upper lobe of left lung (HCC) (Primary Dx) Refill Request Start: 04-01-2022 Telephone encounter Hector Erasto Limon MD Work Phone: Radiation Oncology Comment on above: Patient Update Start: 03-26-2022 End: 03-26-2022 Patient encounter procedure Hector Erasto Limon MD Work Phone: Radiation Oncology Comment on above: Malignant neoplasm o f upper lobe of left lung (HCC) (Primary Dx) Start: 03-22-2022 End: 03-23-[address] BRANDON HENRY Facility: Start: 03-19-2022 End: 03-19-2022 ambulatory Patricia Miller APRN.HEALTH OFFICER Work Phone: Hematology/Oncology Comment on above: Malignant neoplasm o f upper lobe of left lung (HCC) (Primary Dx); Anemia due to antineoplastic chemotherapy; Skin infection; Rash Start: 03-19-2022 End: 03-19-2022 Patient encounter procedure Patricia Miller APRN.HEALTH OFFICER Work Phone: JO[facility] Start: 03-14-2022 End: 03-14-2022 Patient encounter procedure Hector Erasto Limon MD Work Phone: JO[facility] Comment on above: Malignant neoplasm o f upper lobe of left lung (HCC) (Primary Dx) Start: 03-14-2022 Radiation Oncology Note Hector Limon MD Work Phone: Radiation Oncology Comment on above: Simulation Note Treatment Planning Start: 02-27-2022 End: 02-27-2022 Departed Referred AMRITA Swann Work Phone: [facility] [place] Start: 02-26-2022 Telephone encounter Denita rushing RN Work Phone: Hematology/Oncology Comment on above: Care Coordination (R shankar) Start: 02-22-2022 Refill Verito Whelan MD Work Phone: Pulmonary Medicine Comment on above: Refill Request Start: 02-20-2022 End: 02-20-2022 ambulatory Patricia Miller APRN.HEALTH OFFICER Work Phone: Hematology/Oncology Comment on above: Malignant neoplasm o f upper lobe of left lung (HCC) (Primary Dx); Anemia due to antineoplastic chemotherapy; Acute kidney injury (HCC); Skin infection Start: 02-20-2022 End: 02-20-2022 Patient encounter procedure Patricia Miller APRN.HEALTH OFFICER Work Phone: [facility] Start: 02-11-2022 Telephone encounter Denita rushing RN Work Phone: Hematology/Oncology Comment on above: Care Coordination (R shankar) Start: 02-08-2022 Patient encounter procedure [facility] Provider [facility] Start: 02-08-2022 End: 02-08-[address] PATRICIA MILLER Facility:[facility] Start: 02-07-2022 End: 02-08-[address] PATRICIA MILLER Facility:[facility] Start: 02-07-2022 End: 02-07-2022 ambulatory Patricia Miller APRN.HEALTH OFFICER Work Phone: Hematology/Oncology Comment on above: Malignant neoplasm o f upper lobe of left lung (HCC) (Primary Dx); Anemia due to antineoplastic chemotherapy; Acute kidney injury (HCC); Skin infection Start: 02-07-2022 End: 02-07-2022 Patient encounter procedure Patricia Miller APRN.HEALTH OFFICER Work Phone: [facility] Start: 02-07-2022 Telephone encounter Patricia davidson APRN.HEALTH OFFICER [facility] Comment on above: [facility]fusion Start: 01-30-2022 End: 01-30-2022 Patient encounter procedure Hector Limon MD Work Phone: Radiation Oncology Comment on above: Malignant neoplasm o f upper lobe of left lung (HCC) (Primary Dx) Start: 01-30-2022 ambulatory Merissa Fam RN Hematol ogy/Oncology Comment on above: Patient Education Start: 01-30-2022 Telephone encounter Patricia davidson OZZIEJudiHEALTH OFFICER Work Phone: Hematology/Oncology Comment on above: Lab Orders Start: 01-29-2022 End: 01-29-2022 ambulatory Pulm [facility] Lab Main 11 Other Phone: Pulmonary Medicine Comment on above: Spirometry Start: 01-29-2022 End: 01-29-2022 Patient encounter procedure Pulm [facility]ct Lab Main 11 Other Phone: [facility] Comment on above: Chronic [...] JOSE Start: 11-30-2021 Telephone encounter Patricia davidson APRN.HEALTH OFFICER [facility] Comment on above: Future Appointment Lab Orders Start: 11-30-2021 End: 11-30-2021 ambulatory Patricia Miller APRN.HEALTH OFFICER Work Phone: Hematology/Oncology Comment on above: Malignant neoplasm o f upper lobe of left lung (HCC) (Primary Dx); Acute kidney injury (HCC) Malignant neoplasm o f upper lobe of left lung (HCC) (Primary Dx) Start: 11-30-2021 End: 11-30-2021 Patient encounter procedure Patricia Miller APRN.HEALTH OFFICER Work Phone: [facility] Start: 11-29-2021 Telephone encounter [...] Start: 11-21-2021 End: 11-21-2021 ambulatory Chair [address] [place] Work Phone: Hematology/Oncology Comment on above: Malignant neoplasm o f upper lobe of left lung (HCC) (Primary Dx); Acute kidney injury (HCC) Start: 11-19-2021 Telephone encounter Denita rushing RN Work Phone: Hematology/Oncology Comment on above: Care Coordination (D ischarge Follow Up Call) Care Coordination (H ypotension) Patient Update; Bloo d Pressure Start: 11-19-2021 End: 11-19-2021 ambulatory Chair [address] [place] Work Phone: Hematology/Oncology Comment on above: Malignant neoplasm o f upper lobe of left lung (HCC) (Primary Dx); Acute kidney injury (HCC) Start: 11-16-2021 End: 11-18-[address] YUNIOR DOMINGUEZ Facility:[facility] Start: 11-16-2021 Telephone encounter Denita rushing RN Work Phone: Hematology/Oncology Comment on above: Care Coordination (B MP Results) Care Coordination (H ypertension) Start: 11-16-2021 End: 11-16-2021 ambulatory Chair [address] [place] Work Phone: Hematology/Oncology Comment on above: Acute [...] Start: 11-05-2021 End: 11-05-2021 ambulatory Patricia Miller APRN.HEALTH OFFICER Work Phone: Hematology/Oncology Comment on above: Malignant neoplasm o f upper lobe of left lung (HCC) (Primary Dx) Start: 11-05-2021 End: 11-05-2021 Patient encounter procedure Patricia Miller APRN.HEALTH OFFICER Work Phone: [facility] Start: 10-31-2021 Patient encounter procedure [facility] Provider [facility] Department Start: 10-31-2021 End: 10-31-2021 Subsequent hospital visit by physician Jenelle Orona (I-Stat/1.5t) Radiology Comment on above: Malignant neoplasm o f upper lobe of left lung (HCC) [C34.12] Start: 10-30-2021 Telephone encounter Denita rushing RN Work Phone: Hematology/Oncology Comment on above: Care Coordination (R esearch Trial) Lab Orders Start: 10-29-2021 ambulatory Katlin Omer [facility] Work Phone: Hematology/Oncology Comment on above: First [...] procedure Renetta Ponce MD Work Phone: [facility] Start: 10-11-2021 End: 10-11-2021 Patient encounter procedure Aracelis Carrillo APRN.HEALTH OFFICER Work Phone: Thoracic Clinic Comment on above: [...] End: 02-24-2019 Patient encounter procedure PROVIDER UNKNOWN Facility:[facility] Procedures Date Procedure Procedure Detail Performing Clinician Start: 03-19-2024 CT of head without contrast Start: 03-19-2024 Plain chest X-ray Start: 03-09-[address] atten uation skull base mid-thigh Yusef Pandya PA-C Work Phone: Start: 03-09-2024 Gluc bld gluc mntr d ev cleared fda spec home use [facility] Provider Start: 02-07-2024 Plain chest X-ray Start: 11-25-[address] atten uation skull base mid-thigh Nina Grigsby MD Work Phone: Start: 11-25-2023 Blood count complete auto&auto difrntl wbc Nina Grigsby MD Work Phone: Start: 11-25-2023 Gluc bld gluc mntr d ev cleared fda spec home use [facility] Provider Start: 10-21-2023 Ct thorax w/contrast material Nina Grigsby MD Work Phone: Start: 01-03-2023 CT angiography of thorax MD [...] Adult depression scr eening assessment Patricia Miller SHEET METAL WORK FURNACE 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 Work Phone: Start: 01-29-2022 Brncdilat rspse spmt ry pre&post-brncdilat admn Verito Whelan MD Work Phone: Start: 01-29-2022 Radiologic exam ches t 2 views Aracelis Carrillo SHEET METAL WORK FURNACE 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 Work Phone: Start: 12-11-2021 Adult depression scr eening assessment Verito Whelan MD Work Phone: Start: 12-07-2021 PSA screening LOVE MARTINEZ Comment on above: Performed By: #### P SAD #### [facility] [address] [place] [address] Dr. Usama Hobbs Start: 11-21-2021 Basic metabolic [...] MD Work Phone: Aerobic microbial culture PA -C Cristy Shree Work Phone: Plan of Treatment Date Care Activity Detail Author Start: 10-13-2030 Urine microalbumin profile [facility] Start: 03-18-2027 Diabetes Screening Diabetes Screenin g [facility] Start: 02-02-2027 Diabetes Screening Diabetes Screenin g [facility] Start: 12-22-2026 Diabetes Screening Diabetes Screenin g [facility] Start: 12-07-2026 PROSTATE CANCER SCREENING DISCUSSION PROSTATE CANCER SCREENING DISCUSSION [facility] Start: 12-07-2026 Prostate specific antigen measurement Prostate Cancer Screening Discussion [facility] Start: 11-24-2026 Diabetes Screening Diabetes Screenin g [facility] Start: 11-03-2026 Diabetes Screening Diabetes Screenin g [facility] Start: 10-19-2026 Diabetes Screening Diabetes Screenin g [facility] Start: 09-21-2026 Diabetes Screening Diabetes Screenin g [facility] Start: 08-25-2026 Diabetes Screening Diabetes Screenin g [facility] Start: 06-30-2026 Diabetes Screening Diabetes Screenin g [facility] Start: 06-02-2026 Diabetes Screening Diabetes Screenin g [facility] Start: 05-13-2026 Diabetes Screening Diabetes Screenin g [facility] Start: 04-22-2026 Diabetes Screening Diabetes Screenin g [facility] Start: 04-01-2026 Diabetes Screening Diabetes Screenin g [facility] Start: 03-11-2026 DIABETES SCREEN DIABETES SCREEN [facility] Start: 02-18-2026 DIABETES SCREEN DIABETES SCREEN [facility] Start: 01-28-2026 DIABETES SCREEN DIABETES SCREEN [facility] Start: 01-07-2026 DIABETES SCREEN DIABETES SCREEN [facility] Start: 12-27-2025 DIABETES SCREEN DIABETES SCREEN [facility] Start: 12-17-2025 DIABETES SCREEN DIABETES SCREEN [facility] Start: 11-25-2025 DIABETES SCREEN DIABETES SCREEN [facility] Start: 11-18-2025 DIABETES SCREEN DIABETES SCREEN [facility] Start: 11-11-2025 DIABETES SCREEN DIABETES SCREEN [facility] Start: 10-31-2025 DIABETES SCREEN DIABETES SCREEN [facility] Start: 10-21-2025 DIABETES SCREEN DIABETES SCREEN [facility] Start: 09-23-2025 DIABETES SCREEN DIABETES SCREEN [facility] Start: 08-20-2025 DIABETES SCREEN DIABETES SCREEN [facility] Start: 06-25-2025 DIABETES SCREEN DIABETES SCREEN [facility] Start: 04-30-2025 DIABETES SCREEN DIABETES SCREEN [facility] Start: 03-19-2025 DIABETES SCREEN DIABETES SCREEN [facility] Start: 03-15-2025 BP Controlled (<130/80) BP Controlle d (<130/80) [facility] Start: 02-20-2025 DIABETES SCREEN DIABETES SCREEN [facility] Start: 02-07-2025 DIABETES SCREEN DIABETES SCREEN [facility] Start: 02-02-2025 BP Controlled (<130/80) BP Controlle d (<130/80) [facility] Start: 01-22-2025 DIABETES SCREEN DIABETES SCREEN [facility] Start: 01-14-2025 DIABETES SCREEN DIABETES SCREEN [facility] Start: 01-03-2025 DIABETES SCREEN DIABETES SCREEN [facility] Start: 12-24-2024 DIABETES SCREEN DIABETES SCREEN [facility] Start: 12-11-2024 DIABETES SCREEN DIABETES SCREEN [facility] Start: 12-03-2024 DIABETES SCREEN DIABETES SCREEN [facility] Start: 11-30-2024 DIABETES SCREEN DIABETES SCREEN [facility] Start: 11-26-2024 DIABETES SCREEN DIABETES SCREEN [facility] Start: 11-21-2024 DIABETES SCREEN DIABETES SCREEN [facility] Start: 11-19-2024 DIABETES SCREEN DIABETES SCREEN [facility] Start: 11-16-2024 DIABETES SCREEN DIABETES SCREEN [facility] Start: 11-14-2024 DIABETES SCREEN DIABETES SCREEN [facility] Start: 11-12-2024 DIABETES SCREEN DIABETES SCREEN [facility] Start: 11-05-2024 DIABETES SCREEN DIABETES SCREEN [facility] Start: 10-04-2024 DIABETES SCREEN DIABETES SCREEN [facility] Start: 06-30-2024 BP Controlled (<130/80) BP Controlle d (<130/80) [facility] Start: 05-05-2024 End: 05-05-2024 Patient encounter procedure Pulmonary Medicine Comment on above: Centrilobular emphys luke (HCC) [J43.2] Start: 04-14-2024 End: 04-14-2024 Patient encounter procedure 04/14/2024 10:30 AM EDT Office Visit Palliative Medicine [address] [place] [address] Estella Fish, OZZIE.HEALTH OFFICER [address] [place] [address] 4 week follow up-in person Palliative Medicine Comment on above: 4 week follow up-in person Start: 04-08-2024 End: 04-08-2024 Follow-up encounter 04/08/2024 11:30 AM EDT Visit (SP) Office Hematology/Oncology [address] [place] [address] Nina Grigsby MD [address] [place] [address] 6 week follow up Hematology/Oncology Comment on above: 6 week follow up Start: 04-08-2024 End: 04-08-2024 Patient encounter procedure 04/08/2024 11:15 AM EDT Office Visit [facility] [address] [place] [address] PRINT SCHEDULE [facility] Comment on above: PRINT SCHEDULE Start: 03-23-2024 Magnetic resonance angiography of head without contrast MR angio MR brain w/o [facility] Start: 03-21-2024 Covid-19 Vaccine ( season) Covid-19 Vaccine ( season) [facility] Start: 03-21-2024 Influenza vaccination C [facility] Start: 03-20-2024 [facility] Start: 03-19-2024 Referral to neurologist [facility] Start: 03-19-2024 Hospital admission [facility] Start: 03-18-2024 Plain chest X-ray XR chest 2V* [facility] Start: 03-18-2024 [facility] Start: 03-18-2024 End: 03-18-2024 Follow-up encounter 03/18/2024 1:30 PM EDT Visit (SP) Office Hematology/Oncology [address] [place] [address] Nina Grigsby MD [address] [place] [address] 6 week follow up Hematology/Oncology Comment on above: 6 week follow up Start: 03-18-2024 End: 03-18-2024 Patient encounter procedure [facility] Comment on above: 6 week follow up PRINT SCHEDULE Start: 03-17-2024 End: 03-17-2024 Patient encounter procedure 03/17/2024 10:30 AM EDT Office Visit Palliative Medicine [address] [place] [address] Estella Fish, SHEET METAL WORK FURNACE 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 [address] [place] [address] 3 month follow up Palliative Medicine Comment on above: 3 month follow up Start: 03-15-2024 End: 03-15-2024 Patient encounter procedure 03/15/2024 1:00 PM EDT Office Visit Pulmonary Medicine [address] [place] [address] [place] [address] [place] [address] *jose called and requested appointment Pulmonary Medicine Comment on above: *jose called and requested appointment Start: 03-09-2024 End: 03-09-2024 Patient encounter procedure 03/09/2024 9:00 AM EDT Appointment Radiology [address] [facility] [address] [place] [address] Comment on above: PET Start: 02-27-2024 End: 02-27-2024 Patient encounter procedure 02/27/2024 10:30 AM EDT Office Visit Palliative Medicine [address] [place] [address] Estella Fish, SHEET METAL WORK FURNACE 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 [address] [place] [address] 3 month follow up Palliative Medicine Comment on above: 3 month follow up Start: 02-07-2024 Plain chest X-ray XR chest 2V* 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 Expected: 02/03/2024, Expires: 05/04/2024 [facility] Comment on above: Expected: 02/03/2024 , Expires: 05/04/2024 Start: 02-03-2024 End: 05-04-2024 Comprehensive metabolic 2000 panel - Serum or Plasma COMPREHENSIVE METABOLIC PANEL Lab Routine 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 Expected: 02/03/2024, Expires: 05/04/2024 [facility] Work Phone: Comment on above: Expected: 02/03/2024 , Expires: 05/04/2024 Start: 02-03-2024 End: 05-04-2024 Thyrotropin [Units/volume] in Serum or Plasma THYROID STIMULATING HORMONE Lab Routine 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 Expected: 02/03/2024, Expires: 05/04/2024 [facility] Comment on above: Expected: 02/03/2024 , Expires: 05/04/2024 Start: 02-03-2024 End: 02-03-2024 Follow-up encounter 02/03/2024 11:30 AM EDT Visit (SP) Office Hematology/Oncology [facility] [place] [place] [address] Yusef Pandya PAKassieC [address] [place] [address] 6 week follow up Hematology/Oncology Comment on above: 6 week follow up Start: 02-03-2024 End: 02-03-2024 Patient encounter procedure 02/03/2024 11:15 AM EDT Office Visit [facility] [address] [place] [address] 6 week follow up [facility] Comment on above: 6 week follow up Start: 01-29-2024 BP CONTROLLED (<130/80) BP CONTROLLE D (<130/80) [facility] Start: 01-27-2024 End: 04-27-2024 CBC W Auto Differential panel - Blood COMPLETE BLOOD COUNT AND DIFFERENTIAL Lab Routine 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) Expected: 01/27/2024, Expires: 04/27/2024 [facility] Comment on above: Expected: 01/27/2024 , Expires: 04/27/2024 Start: 01-27-2024 End: 04-27-2024 Comprehensive metabolic 2000 panel - Serum or Plasma COMPREHENSIVE METABOLIC PANEL Lab Routine 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) Expected: 01/27/2024, Expires: 04/27/2024 [facility] Work Phone: Comment on above: Expected: 01/27/2024 , Expires: 04/27/2024 Start: 12-30-2023 End: 12-30-2023 ambulatory 12/30/2023 11:30 AM EDT Visit (SP) Office Hematology/Oncology [address] [place] [address] [place] [address] Yunior Thacker LMT [address] [place] [address] Massage pt in the lobby Hematology/Oncology Comment on above: Massage pt in the lobby Start: 12-24-2023 End: 12-24-2023 Patient encounter procedure Radiation Oncology Comment on above: Chest wall Chest wall- do compl etion tasks for both areas Start: 12-23-2023 End: 12-23-2023 Follow-up encounter 12/23/2023 2:45 PM EDT Visit (SP) Office Hematology/Oncology [address] [place] [address] [place] [address] Nina Grigsby MD [address] [place] [address] [place] [address] 3 week follow up after Dr. Limon consult and XRT Hematology/Oncology Comment on above: 3 week follow up aft er Dr. Liomn consult and XRT Start: 12-23-2023 End: 12-23-2023 Patient encounter procedure [facility] Comment on above: 3 week follow up aft er Dr. Limon consult and XRT Chest wall- grigsby\T \ labs 2:30 Start: 12-23-2023 End: 12-23-2023 Patient encounter procedure 12/23/2023 10:15 AM EDT Appointment Radiation On[facility] [address] [facility] [address] Chest wall Radiation Oncology Comment on above: Chest wall Start: 12-22-2023 End: 12-22-2023 Patient encounter procedure Radiation Oncology Comment on above: Chest wall Location: [facility] Start: 12-19-2023 End: 12-19-2023 Patient encounter procedure 12/19/2023 10:45 AM EDT Appointment Radiation Oncology [address] [facility] [place] [address] Chest wall Radiation Oncology Comment on above: Chest wall Start: 12-18-2023 BP CONTROLLED (<130/80) BP CONTROLLE D (<130/80) [facility] Start: 12-18-2023 End: 12-18-2023 Patient encounter procedure 12/18/2023 2:00 PM EDT Appointment Radiation Oncology [address] [place] [address] Chest wall Radiation Oncology Comment on above: Chest wall Start: 12-17-2023 End: 12-17-2023 Patient encounter procedure 12/17/2023 12:15 PM EDT Appointment Radiation Oncology [address] [place] [address] Neck and Chest wall Radiation Oncology Comment [...] BP CONTROLLED (<130/80) BP CONTROLLE D (<130/80) [facility] Start: 11-25-2023 End: 02-24-2024 CBC W Auto Differential panel - Blood COMPLETE BLOOD COUNT AND DIFFERENTIAL Lab Routine Malignant neoplasm of upper lobe of left lung (HCC) Expected: 11/25/2023 (Approximate), Expires: 02/24/2024 [facility] Work Phone: Comment on above: Expected: 11/25/2023 (Approximate), Expires: 02/24/2024 Start: 11-25-2023 End: 02-24-2024 Comprehensive metabolic 2000 panel - Serum or Plasma COMPREHENSIVE METABOLIC PANEL Lab Routine Malignant neoplasm of upper lobe of left lung (HCC) Expected: 11/25/2023 (Approximate), Expires: 02/24/2024 [facility] Comment on above: Expected: 11/25/2023 (Approximate), Expires: 02/24/2024 Start: 11-25-2023 End: 02-24-2024 Thyrotropin [Units/volume] in Serum or Plasma THYROID STIMULATING HORMONE Lab Routine Malignant neoplasm of upper lobe of left lung (HCC) Expected: 11/25/2023 (Approximate), Expires: 02/24/2024 [facility] Comment on above: Expected: 11/25/2023 (Approximate), Expires: 02/24/2024 Start: 11-25-2023 End: 11-25-2023 Patient encounter procedure 11/25/2023 10:45 AM EDT Appointment Radiology Pet CT [address] [place] [address] [place] [address] Comment on above: PET Start: 11-21-2023 End: 11-21-2023 Patient encounter procedure 11/21/2023 10:00 AM EDT Office Visit Palliative Medicine [address] [place] [address] [place] [address] Estella Fish, [employer] [address] [place] [address] 3 month follow up Palliative Medicine Comment on above: 3 month follow up Start: 11-19-2023 BP CONTROLLED (<130/80) BP CONTROLLE D (<130/80) [facility] Start: 11-01-2023 BP CONTROLLED (<130/80) BP CONTROLLE D (<130/80) [facility] Start: 10-29-2023 BP CONTROLLED (<130/80) BP CONTROLLE D (<130/80) [facility] Start: 10-22-2023 BP CONTROLLED (<130/80) BP CONTROLLE D (<130/80) [facility] Start: 09-24-2023 BP CONTROLLED (<130/80) BP CONTROLLE D (<130/80) [facility] Start: 08-25-2023 End: 11-24-2023 T4/FTI/T4U [facility] Work Phone: Comment on above: Expected: 08/25/2023 , Expires: 11/24/2023 Start: 08-25-2023 End: 11-24-2023 Thyrotropin [Units/volume] in Serum or Plasma [facility] Work Phone: Comment on above: Expected: 08/25/2023 , Expires: 11/24/2023 Start: 08-20-2023 BP CONTROLLED (<130/80) BP CONTROLLE D (<130/80) [facility] Start: 07-21-2023 Advance Directive Discussion Advance Directive Discussion [facility] Start: 07-21-2023 Behavioral Health Screening Behavioral Health Screening [facility] Start: 07-21-2023 Depression Assessment Depression Ass essment [facility] Start: 07-01-2023 End: 09-30-2023 CBC W Auto Differential panel - Blood CBC + DIFF Lab Routine Malignant neoplasm of upper lobe of left lung (HCC) Centrilobular emphysema (HCC) CAD in [place] artery PVD (peripheral vascular disease) (HCC) Cancer related pain Tonsillar mass Abnormal LFTs Anxiety Hypothyroidism due to medication Expected: 07/01/2023, Expires: 09/30/2023 [facility] Work Phone: Comment on above: Expected: 07/01/2023 , Expires: 09/30/2023 Start: 07-01-2023 End: 09-30-2023 Comprehensive metabolic 2000 panel - Serum or Plasma COMP METABOLIC PANEL Lab Routine Malignant neoplasm of upper lobe of left lung (HCC) Centrilobular emphysema (HCC) CAD in [place] artery PVD (peripheral vascular disease) (HCC) Cancer related pain Tonsillar mass Abnormal LFTs Anxiety Hypothyroidism due to medication Expected: 07/01/2023, Expires: 09/30/2023 [facility] Work Phone: Comment on above: Expected: 07/01/2023 , Expires: 09/30/2023 Start: 07-01-2023 End: 09-30-2023 Thyrotropin [Units/volume] in Serum or Plasma TSH BLD Lab Routine Malignant neoplasm of upper lobe of left lung (HCC) Centrilobular emphysema (HCC) CAD in [place] artery PVD (peripheral vascular disease) (HCC) Cancer related pain Tonsillar mass Abnormal LFTs Anxiety Hypothyroidism due to medication Expected: 07/01/2023, Expires: 09/30/2023 [facility] Work Phone: Comment on above: Expected: 07/01/2023 , Expires: 09/30/2023 Start: 06-13-2023 End: 09-12-2023 TOX SCREEN ROUT UR TOX SCREEN ROUT UR Lab Routine Opioid contract exists Expected: 06/13/2023, Expires: 09/12/2023 [facility] Work Phone: Comment on above: Expected: 06/13/2023 , Expires: 09/12/2023 Start: 06-11-2023 BP CONTROLLED (<130/80) BP CONTROLLE D (<130/80) [facility] Start: 06-02-2023 End: 09-01-2023 CBC W Auto Differential panel - Blood CBC + DIFF Lab Routine Malignant neoplasm of upper lobe of left lung (HCC) Expected: 06/02/2023, Expires: 09/01/2023 [facility] Work Phone: Comment on above: [...] chemotherapy Skin rash Expected: 04/22/2023, Expires: 06/22/2023 [facility] Work Phone: Comment on above: [...] chemotherapy Skin rash Expected: 04/22/2023, Expires: 06/22/2023 [facility] Work Phone: Comment on above: Expected: 04/22/2023 , Expires: 06/22/2023 Start: 04-22-2023 End: 06-22-2023 Thyrotropin [Units/volume] in Serum or Plasma TSH BLD Lab Routine 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) Cancer related pain Abnormal LFTs Anxiety Centrilobular emphysema (HCC) PVD (peripheral vascular disease) (HCC) Anemia due to antineoplastic chemotherapy Skin rash Expected: 04/22/2023, Expires: 06/22/2023 [facility] Work Phone: Comment on above: Expected: 04/22/2023 , Expires: 06/22/2023 Start: 03-26-2023 BP CONTROLLED (<130/80) BP CONTROLLE D (<130/80) [facility] Start: 03-21-2023 Covid-19 Vaccine () Covid-19 Vaccine () [facility] Start: 03-21-2023 Influenza vaccination [facility] Start: 03-19-2023 Adult depression screening assessment DEPRESSION SCREENING [facility] Start: 03-19-2023 BP CONTROLLED (<130/80) BP CONTROLLE D (<130/80) [facility] Start: 03-11-2023 End: 05-11-2023 T4/FTI/T4U [facility] Work Phone: Comment on above: Expected: 03/11/2023 , Expires: 05/11/2023 Start: 03-11-2023 End: 05-11-2023 Thyrotropin [Units/volume] in Serum or Plasma [facility] Work Phone: Comment on above: Expected: 03/11/2023 , Expires: 05/11/2023 Start: 02-20-2023 BP CONTROLLED (<130/80) BP CONTROLLE D (<130/80) [facility] Start: 02-08-2023 COLORECTAL CANCER SCREENING COLORECTAL CANCER SCREENING [facility] Start: 02-08-2023 FECAL OCCULT BLOOD FECAL OCCULT BLOO D [facility] Start: 02-08-2023 Screening for malign ant neoplasm of colon [facility] Start: 02-07-2023 BP CONTROLLED (<130/80) BP CONTROLLE D (<130/80) [facility] Start: 01-30-2023 BP CONTROLLED (<130/80) BP CONTROLLE D (<130/80) [facility] Start: 01-22-2023 BP CONTROLLED (<130/80) BP CONTROLLE D (<130/80) [facility] Start: 01-14-2023 BP CONTROLLED (<130/80) BP CONTROLLE D (<130/80) [facility] Start: 01-07-2023 End: 03-09-2023 Thyrotropin [Units/volume] in Serum or Plasma [facility] Work Phone: Comment on above: Expected: 01/07/2023 , Expires: 03/09/2023 Start: 12-27-2022 End: 02-26-2023 Comprehensive metabolic 2000 panel - Serum or Plasma COMP METABOLIC PANEL Lab Routine 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) Abnormal LFTs Expected: 12/27/2022 (Approximate), Expires: 02/26/2023 [facility] Work Phone: Comment on above: Expected: 12/27/2022 (Approximate), Expires: 02/26/2023 Start: 12-24-2022 BP CONTROLLED (<130/80) BP CONTROLLE D (<130/80) [facility] Start: 12-16-2022 End: 02-15-2023 CBC W Auto Differential panel - Blood CBC + DIFF Lab Routine Malignant neoplasm of upper lobe of left lung (HCC) Centrilobular emphysema (HCC) Abnormal LFTs Cancer related pain PVD (peripheral vascular disease) (HCC) Malaise and fatigue Expected: 12/16/2022, Expires: 02/15/2023 [facility] Work Phone: Comment on above: Expected: 12/16/2022 , Expires: 02/15/2023 Start: 12-16-2022 End: 02-15-2023 Comprehensive metabolic 2000 panel - Serum or Plasma COMP METABOLIC PANEL Lab Routine Malignant neoplasm of upper lobe of left lung (HCC) Centrilobular emphysema (HCC) Abnormal LFTs Cancer related pain PVD (peripheral vascular disease) (HCC) Malaise and fatigue Expected: 12/16/2022, Expires: 02/15/2023 [facility] Work Phone: Comment on above: Expected: 12/16/2022 , Expires: 02/15/2023 Start: 12-16-2022 End: 02-15-2023 Thyrotropin [Units/volume] in Serum or Plasma TSH BLD Lab Routine Malignant neoplasm of upper lobe of left lung (HCC) Centrilobular emphysema (HCC) Abnormal LFTs Cancer related pain PVD (peripheral vascular disease) (HCC) Malaise and fatigue Expected: 12/16/2022, Expires: 02/15/2023 [facility] Work Phone: Comment on above: Expected: 12/16/2022 , Expires: 02/15/2023 Start: 12-11-2022 Adult depression screening assessment DEPRESSION SCREENING [facility] Start: 12-11-2022 BP CONTROLLED (<130/80) BP CONTROLLE D (<130/80) [facility] Start: 12-09-2022 End: 02-08-2023 CBC W Auto Differential panel - Blood CBC + DIFF Lab Routine Malignant neoplasm of upper lobe of left lung (HCC) Centrilobular emphysema (HCC) Abnormal LFTs Cancer related pain PVD (peripheral vascular disease) (HCC) Expected: 12/09/2022, Expires: 02/08/2023 [facility] Work Phone: Comment on above: Expected: 12/09/2022 , Expires: 02/08/2023 Start: 12-09-2022 End: 02-08-2023 Comprehensive metabolic 2000 panel - Serum or Plasma COMP METABOLIC PANEL Lab Routine Malignant neoplasm of upper lobe of left lung (HCC) Centrilobular emphysema (HCC) Abnormal LFTs Cancer related pain PVD (peripheral vascular disease) (HCC) Expected: 12/09/2022, Expires: 02/08/2023 [facility] Work Phone: Comment on above: Expected: 12/09/2022 , Expires: 02/08/2023 Start: 12-03-2022 BP CONTROLLED (<130/80) BP CONTROLLE D (<130/80) [facility] Start: 11-30-2022 BP CONTROLLED (<130/80) BP CONTROLLE D (<130/80) [facility] Start: 11-26-2022 BP CONTROLLED (<130/80) BP CONTROLLE D (<130/80) [facility] Start: 11-25-2022 End: 01-25-2023 CBC W Auto Differential panel - Blood CBC + DIFF Lab Routine 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) Abnormal LFTs Expected: 11/25/2022, Expires: 01/25/2023 [facility] Work Phone: Comment on above: Expected: 11/25/2022 , Expires: 01/25/2023 Start: 11-25-2022 End: 01-25-2023 Comprehensive metabolic 2000 panel - Serum or Plasma COMP METABOLIC PANEL Lab Routine 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) Abnormal LFTs Expected: 11/25/2022, Expires: 01/25/2023 [facility] Work Phone: Comment on above: Expected: 11/25/2022 , Expires: 01/25/2023 Start: 11-25-2022 End: 01-25-2023 Thyrotropin [Units/volume] in Serum or Plasma TSH BLD Lab Routine 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) Abnormal LFTs Malaise and fatigue Expected: 11/25/2022, Expires: 01/25/2023 [facility] Work Phone: Comment on above: Expected: 11/25/2022 , Expires: 01/25/2023 Start: 11-18-2022 End: 01-18-2023 CBC W Auto Differential panel - Blood CBC + DIFF Lab Routine 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) Expected: 11/18/2022, Expires: 01/18/2023 [facility] Work Phone: Comment on above: Expected: 11/18/2022 , Expires: 01/18/2023 Start: 11-18-2022 End: 01-18-2023 Comprehensive metabolic 2000 panel - Serum or Plasma COMP METABOLIC PANEL Lab Routine 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) Expected: 11/18/2022, Expires: 01/18/2023 [facility] Work Phone: Comment on above: Expected: 11/18/2022 , Expires: 01/18/2023 Start: 11-18-2022 End: 01-18-2023 Lactate dehydrogenase [Enzymatic activity/volume] in Serum or Plasma LD LACTATE DEHYDRO Lab Routine 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) Expected: 11/18/2022, Expires: 01/18/2023 [facility] Work Phone: Comment on above: Expected: 11/18/2022 , Expires: 01/18/2023 Start: 11-12-2022 BP CONTROLLED (<130/80) BP CONTROLLE D (<130/80) [facility] Start: 11-05-2022 BP CONTROLLED (<130/80) BP CONTROLLE D (<130/80) [facility] Start: 10-24-2022 BP CONTROLLED (<130/80) BP CONTROLLE D (<130/80) [facility] Start: 10-19-2022 BP CONTROLLED (<130/80) BP CONTROLLE D (<130/80) [facility] Start: 10-15-2022 End: 12-15-2022 MISC SEND OUT TST 1 MISC SEND OUT TST 1 Lab Routine Malignant neoplasm of upper lobe of left lung (HCC) Expected: 10/15/2022, Expires: 12/15/2022 [facility] Work Phone: Comment on above: Expected: 10/15/2022 , Expires: 12/15/2022 Start: 10-11-2022 BP CONTROLLED (<130/80) BP CONTROLLE D (<130/80) [facility] Start: 09-17-2022 End: 11-17-2022 CBC W Auto Differential panel - Blood CBC + DIFF Lab Routine Malignant neoplasm of upper lobe of left lung (HCC) Malaise and fatigue Expected: 09/17/2022 (Approximate), Expires: 11/17/2022 [facility] Work Phone: Comment on above: Expected: 09/17/2022 (Approximate), Expires: 11/17/2022 Start: 09-17-2022 End: 11-17-2022 Comprehensive metabolic 2000 panel - Serum or Plasma COMP METABOLIC PANEL Lab Routine Malignant neoplasm of upper lobe of left lung (HCC) Malaise and fatigue Expected: 09/17/2022 (Approximate), Expires: 11/17/2022 [facility] Work Phone: Comment on above: Expected: 09/17/2022 (Approximate), Expires: 11/17/2022 Start: 09-17-2022 End: 11-17-2022 Lactate dehydrogenase [Enzymatic activity/volume] in Serum or Plasma LD LACTATE DEHYDRO Lab Routine Malignant neoplasm of upper lobe of left lung (HCC) Malaise and fatigue Expected: 09/17/2022 (Approximate), Expires: 11/17/2022 [facility] Work Phone: Comment on above: Expected: 09/17/2022 (Approximate), Expires: 11/17/2022 Start: 09-17-2022 End: 11-17-2022 Thyrotropin [Units/volume] in Serum or Plasma TSH BLD Lab Routine Malignant neoplasm of upper lobe of left lung (HCC) Malaise and fatigue Expected: 09/17/2022 (Approximate), Expires: 11/17/2022 [facility] Work Phone: Comment on above: Expected: 09/17/2022 (Approximate), Expires: 11/17/2022 Start: 08-20-2022 End: 10-20-2022 CBC W Auto Differential panel - Blood CBC + DIFF Lab Routine Malignant neoplasm of upper lobe of left lung (HCC) Anemia due to antineoplastic chemotherapy Expected: 08/20/2022, Expires: 10/20/2022 [facility] Work Phone: Comment on above: Expected: 08/20/2022 , Expires: 10/20/2022 Start: 08-20-2022 End: 10-20-2022 Comprehensive metabolic 2000 panel - Serum or Plasma COMP METABOLIC PANEL Lab Routine Malignant neoplasm of upper lobe of left lung (HCC) Anemia due to antineoplastic chemotherapy Expected: 08/20/2022, Expires: 10/20/2022 [facility] Work Phone: Comment on above: Expected: 08/20/2022 , Expires: 10/20/2022 Start: 07-21-2022 ADVANCE DIRECTIVE DISCUSSION ADVANCE DIRECTIVE DISCUSSION [facility] Start: 07-21-2022 DEPRESSION ASSESSMENT DEPRESSION ASS ESSMENT [facility] Start: 06-25-2022 End: 08-25-2022 THYROGLOBULIN BY MASS SPECTROMETRY THYROGLOBULIN BY MASS SPECTROMETRY Lab Routine Thyroid cancer (HCC) Expected: 06/25/2022, Expires: 08/25/2022 [facility] Work Phone: Comment on above: Expected: 06/25/2022 , Expires: 08/25/2022 Start: 04-18-2022 End: 06-18-2022 CBC W Auto Differential panel - Blood CBC + DIFF Lab Routine Malignant neoplasm of upper lobe of left lung (HCC) Expected: 04/18/2022, Expires: 06/18/2022 [facility] Work Phone: Comment on above: Expected: 04/18/2022 , Expires: 06/18/2022 Start: 04-18-2022 End: 06-18-2022 Comprehensive metabolic 2000 panel - Serum or Plasma COMP METABOLIC PANEL Lab Routine Malignant neoplasm of upper lobe of left lung (HCC) Expected: 04/18/2022, Expires: 06/18/2022 [facility] Work Phone: Comment on above: Expected: 04/18/2022 , Expires: 06/18/2022 Start: 03-21-2022 Influenza vaccination [facility] Start: 02-22-2022 End: 04-24-2022 CBC W Auto Differential panel - Blood [facility] Work Phone: Comment on above: Expected: 02/22/2022 , Expires: 04/24/2022 Start: 02-22-2022 End: 04-24-2022 Comprehensive metabolic 2000 panel - Serum or Plasma [facility] Work Phone: Comment on above: Expected: 02/22/2022 , Expires: 04/24/2022 Start: 02-15-2022 End: 04-17-2022 CBC W Auto Differential panel - Blood CBC + DIFF Lab Routine Malignant neoplasm of upper lobe of left lung (HCC) Expected: 02/15/2022, Expires: 04/17/2022 [facility] Work Phone: Comment on above: Expected: 02/15/2022 , Expires: 04/17/2022 Start: 2022 ADVANCE DIRECTIVE DISCUSSION ADVANCE DIRECTIVE DISCUSSION [facility] Start: 02-07-2022 End: 04-09-2022 Iron and Iron binding capacity panel - Serum or Plasma [facility] Work Phone: Comment on above: Expected: 02/07/2022 , Expires: 04/09/2022 Start: 02-05-2022 End: 04-07-2022 CBC W Auto Differential panel - Blood CBC + DIFF Lab Routine Malignant neoplasm of upper lobe of left lung (HCC) Expected: 02/05/2022, Expires: 04/07/2022 [facility] Work Phone: Comment on above: Expected: 02/05/2022 , Expires: 04/07/2022 Start: 02-05-2022 End: 04-07-2022 Comprehensive metabolic 2000 panel - Serum or Plasma COMP METABOLIC PANEL Lab Routine Malignant neoplasm of upper lobe of left lung (HCC) Expected: 02/05/2022, Expires: 04/07/2022 [facility] Work Phone: Comment on above: Expected: 02/05/2022 , Expires: 04/07/2022 Start: 02-05-2022 End: 04-07-2022 Magnesium [Mass/volume] in Serum or Plasma MAGNESIUM BLD Lab Routine Malignant neoplasm of upper lobe of left lung (HCC) Expected: 02/05/2022, Expires: 04/07/2022 [facility] Work Phone: Comment on above: Expected: 02/05/2022 , Expires: 04/07/2022 Start: 01-22-2022 End: 03-24-2022 CBC W Auto Differential panel - Blood CBC + DIFF Lab Routine Malignant neoplasm of upper lobe of left lung (HCC) Expected: 01/22/2022, Expires: 03/24/2022 [facility] Work Phone: Comment on above: Expected: 01/22/2022 , Expires: 03/24/2022 Start: 01-22-2022 End: 03-24-2022 Comprehensive metabolic 2000 panel - Serum or Plasma COMP METABOLIC PANEL Lab Routine Malignant neoplasm of upper lobe of left lung (HCC) Expected: 01/22/2022, Expires: 03/24/2022 [facility] Work Phone: Comment on above: Expected: 01/22/2022 , Expires: 03/24/2022 Start: 01-10-2022 End: 03-12-2022 CBC W Auto Differential panel - Blood CBC + DIFF Lab Routine Malignant neoplasm of upper lobe of left lung (HCC) Expected: 01/10/2022, Expires: 03/12/2022 [facility] Work Phone: Comment on above: Expected: 01/10/2022 , Expires: 03/12/2022 Start: 01-10-2022 End: 03-12-2022 Comprehensive metabolic 2000 panel - Serum or Plasma COMP METABOLIC PANEL Lab Routine Malignant neoplasm of upper lobe of left lung (HCC) Expected: 01/10/2022, Expires: 03/12/2022 [facility] Work Phone: Comment on above: Expected: 01/10/2022 , Expires: 03/12/2022 Start: 01-10-2022 End: 03-12-2022 Magnesium [Mass/volume] in Serum or Plasma MAGNESIUM BLD Lab Routine Malignant neoplasm of upper lobe of left lung (HCC) Expected: 01/10/2022, Expires: 03/12/2022 [facility] Work Phone: Comment on above: Expected: 01/10/2022 , Expires: 03/12/2022 Start: 01-03-2022 End: 03-05-2022 CBC W Auto Differential panel - Blood CBC + DIFF Lab Routine Malignant neoplasm of upper lobe of left lung (HCC) Expected: 01/03/2022, Expires: 03/05/2022 [facility] Work Phone: Comment on above: Expected: 01/03/2022 , Expires: 03/05/2022 Start: 01-03-2022 End: 03-05-2022 Comprehensive metabolic 2000 panel - Serum or Plasma COMP METABOLIC PANEL Lab Routine Malignant neoplasm of upper lobe of left lung (HCC) Expected: 01/03/2022, Expires: 03/05/2022 [facility] Work Phone: Comment on above: Expected: 01/03/2022 , Expires: 03/05/2022 Start: 01-03-2022 End: 03-05-2022 Magnesium [Mass/volume] in Serum or Plasma MAGNESIUM BLD Lab Routine Malignant neoplasm of upper lobe of left lung (HCC) Expected: 01/03/2022, Expires: 03/05/2022 [facility] Work Phone: Comment on above: Expected: 01/03/2022 , Expires: 03/05/2022 Start: 12-10-2021 End: 02-09-2022 CBC W Auto Differential panel - Blood CBC + DIFF Lab Routine Malignant neoplasm of upper lobe of left lung (HCC) Acute kidney injury (HCC) Expected: 12/10/2021 (Approximate), Expires: 02/09/2022 [facility] Work Phone: Comment on above: Expected: 12/10/2021 (Approximate), Expires: 02/09/2022 Start: 12-10-2021 End: 02-09-2022 Comprehensive metabolic 2000 panel - Serum or Plasma COMP METABOLIC PANEL Lab Routine Malignant neoplasm of upper lobe of left lung (HCC) Acute kidney injury (HCC) Expected: 12/10/2021 (Approximate), Expires: 02/09/2022 [facility] Work Phone: Comment on above: Expected: 12/10/2021 (Approximate), Expires: 02/09/2022 Start: 12-03-2021 End: 02-02-2022 CBC W Auto Differential panel - Blood CBC + DIFF Lab Routine Malignant neoplasm of upper lobe of left lung (HCC) Expected: 12/03/2021, Expires: 02/02/2022 [facility] Work Phone: Comment on above: Expected: 12/03/2021 , Expires: 02/02/2022 Start: 12-03-2021 End: 02-02-2022 Comprehensive metabolic 2000 panel - Serum or Plasma COMP METABOLIC PANEL Lab Routine Malignant neoplasm of upper lobe of left lung (HCC) Expected: 12/03/2021, Expires: 02/02/2022 [facility] Work Phone: Comment on above: Expected: 12/03/2021 , Expires: 02/02/2022 Start: 11-30-2021 End: 01-30-2022 CBC W Auto Differential panel - Blood CBC + DIFF Lab Routine Malignant neoplasm of upper lobe of left lung (HCC) Acute kidney injury (HCC) Expected: 11/30/2021, Expires: 01/30/2022 [facility] Work Phone: Comment on above: Expected: 11/30/2021 , Expires: 01/30/2022 Start: 11-30-2021 End: 01-30-2022 Comprehensive metabolic 2000 panel - Serum or Plasma COMP METABOLIC PANEL Lab Routine Malignant neoplasm of upper lobe of left lung (HCC) Acute kidney injury (HCC) Expected: 11/30/2021, Expires: 01/30/2022 [facility] Work Phone: Comment on above: Expected: 11/30/2021 , Expires: 01/30/2022 Start: 11-19-2021 End: 01-19-2022 Basic metabolic 2000 panel - Serum or Plasma [facility] Work Phone: Comment on above: Expected: 11/19/2021 , Expires: 01/19/2022 Start: 11-14-2021 End: 01-14-2022 Basic metabolic 2000 panel - Serum or Plasma BASIC METABOLIC PNL Lab Routine Malignant neoplasm of upper lobe of left lung (HCC) Expected: 11/14/2021, Expires: 01/14/2022 [facility] Work Phone: Comment on above: Expected: 11/14/2021 , Expires: 01/14/2022 Start: 11-12-2021 End: 01-12-2022 CBC W Auto Differential panel - Blood CBC + DIFF Lab Routine Malignant neoplasm of upper lobe of left lung (HCC) Expected: 11/12/2021, Expires: 01/12/2022 [facility] Work Phone: Comment on above: Expected: 11/12/2021 , Expires: 01/12/2022 Start: 11-12-2021 End: 01-12-2022 Comprehensive metabolic 2000 panel - Serum or Plasma COMP METABOLIC PANEL Lab Routine Malignant neoplasm of upper lobe of left lung (HCC) Expected: 11/12/2021, Expires: 01/12/2022 [facility] Work Phone: Comment on above: Expected: 11/12/2021 , Expires: 01/12/2022 Start: 10-26-2021 End: 11-18-2022 Mri brain brain stem w/o w/contrast material MRI BRAIN WO/W IVCON Radiology Routine Malignant neoplasm of upper lobe of left lung (HCC) Expected: 10/26/2021, Expires: 11/18/2022 [facility] Work Phone: Comment on above: Expected: 10/26/2021 , Expires: 11/18/2022 Start: 09-11-2021 Covid-19 Vaccine (5 - Moderna series) Covid-19 Vaccine (5 - Moderna series) [facility] Start: 07-21-2021 DEPRESSION ASSESSMENT DEPRESSION ASS ESSMENT [facility] Start: 05-15-2021 COVID-19 VACCINE (3 - Booster for Moderna series) COVID-19 VACCINE (3 - Booster for Moderna series) [facility] Start: 03-21-2021 Influenza vaccination INFLUENZA (#1) [facility] Start: 02-07-2021 COVID-19 VACCINE (3 - Moderna series) COVID-19 VACCINE (3 - Moderna series) [facility] Start: 01-10-2021 COVID-19 VACCINE (3 - Moderna risk 4-dose series) COVID-19 VACCINE (3 - Moderna risk 4-dose series) [facility] Start: 01-10-2021 COVID-19 VACCINE (3 - Moderna risk series) COVID-19 VACCINE (3 - Moderna risk series) [facility] Start: 2017 RSV Vaccine (1 - 1-d ose 60+ series) RSV Vaccine (1 - 1-dose 60+ series) [facility] Start: 02-14-2012 PROSTATE CANCER SCREENING DISCUSSION PROSTATE CANCER SCREENING DISCUSSION [facility] Start: 02-14-2012 Prostate specific antigen measurement Prostate Cancer Screening Discussion [facility] Start: 2007 SHINGRIX VACCINE (1 of 2) SHINGRIX VACCINE (1 of 2) [facility] Start: 2002 COLOGUARD (FIT-DNA) COLOGUARD (FIT-D NA) [facility] Start: 2002 Colonoscopy COLONOSCOPY [facility] Start: 2002 COLORECTAL CANCER SCREENING COLORECTAL CANCER SCREENING [facility] Start: [address] COLONOGRAPHY [facility] Start: 2002 FECAL OCCULT BLOOD FECAL OCCULT BLOO D [facility] Start: 2002 Screening for malign ant neoplasm of colon [facility] Start: 2002 SIGMOIDOSCOPY SIGMOIDOSCOPY [facility] Start: 02-14-1992 Lipid 1996 panel - Serum or Plasma Lipid Screening [facility] Start: 02-14-1992 Lipid panel Lipid Screening [facility] Start: 02-14-1992 LIPID SCREEN LIPID SCREEN [facility] Start: 1987 Zoledronic acid therapy ALPHA- 1 ANTITRYPSIN DEFICIENCY SCREENING [facility] Start: 02-14-1976 SHINGRIX VACCINE (1 of 2) SHINGRIX VACCINE (1 of 2) [facility] Start: 1975 ANNUAL PCP TEAM UMBRELLA TIPPER HAND ALYSSA DISEASE VISIT ANNUAL PCP TEAM CHRONIC DISEASE VISIT [facility] Start: 1975 Anxiety Screening Anxiety Screening [facility] Start: 1975 BP CONTROLLED (<130/80) BP CONTROLLE D (<130/80) [facility] Start: 1975 Depression Screening Depression Scre ening [facility] Start: 1975 Hepatitis B surface antibody level LDL CHOLESTEROL [facility] Start: 1975 HEPATITIS C SCREENING HEPATITIS C [facility] Start: 1975 Hepatitis C screening Hepatitis C [facility] Start: 1975 HIV SCREENING HIV SCREENING [facility] Start: 1969 Adult depression screening assessment DEPRESSION SCREENING [facility] Start: 1963 PNEUMOCOCCAL (1 - PCV) PNEUMOCOCCAL (1 - PCV) [facility] Start: 1963 Pneumococcal Vaccine : 65+ (1 - PCV) Pneumococcal Vaccine: 65+ (1 - PCV) [facility] Start: 1963 Pneumococcal Vaccine : 65+ (1 of 2 - PCV) Pneumococcal Vaccine: 65+ (1 of 2 - PCV) [facility] Start: 1963 PNEUMOCOCCAL: 65+ (1 - PCV) PNEUMOCOCCAL: 65+ (1 - PCV) [facility] Start: 1957 ABDOMINAL AORTIC ANEURYSM SCREENING ABDOMINAL AORTIC ANEURYSM SCREENING [facility] Start: 1957 Abdominal aortic aneurysm screening Abdominal Aortic Aneurysm Screening [facility] Anion gap measurement [facility] aPTT in Platelet poo r plasma by Coagulation assay [facility] Basophils [#/volume] in Blood by Automated count [facility] Basophils/100 leukocytes in Blood by Automated count [facility] Biopsy soft tissue neck/thorax BIOPSY SOFT TISSUE NECK/CHEST Procedures Routine Malignant neoplasm of upper lobe of left lung (HCC) Ordered: 10/15/2022 [facility] Work Phone: Comment on above: Ordered: 10/15/2022 End: 05-08-2023 Bone &/joint imaging whole body NM BONE WHOLE BODY Radiology Routine Malignant neoplasm of unspecified part of unspecified bronchus or lung (HCC) 1 Occurrences starting 04/08/2022 until 05/08/2023 [facility] Work Phone: Comment on above: 1 Occurrences starti ng 04/08/2022 until 05/08/2023 End: 09-19-2023 Ct abdomen & pelvis w/contrast material CT ABD/PEL W IVCON Radiology Routine Malignant neoplasm of upper lobe of left lung (HCC) 1 Occurrences starting 08/20/2022 until 09/19/2023 [facility] Work Phone: Comment on above: 1 Occurrences starti ng 08/20/2022 until 09/19/2023 End: 09-19-2023 CT CHEST W IVCON CT CHEST W IVCON Radiology Routine 1 Occurrences starting 08/20/2022 until 09/19/2023 [facility] Work Phone: Comment on above: 1 Occurrences starti ng 08/20/2022 until 09/19/2023 CT Guidance for radiation treatment of Unspecified body region CT SIM PLANNING RADIATION ONCOLOGY Radiology Routine Malignant neoplasm of upper lobe of left lung (HCC) Ordered: 12/02/2023 [facility] Work Phone: Comment on above: Ordered: 12/02/2023 CT SIM PLANNING RADIATION ONCOLOGY CT SIM PLANNING RADIATION ONCOLOGY Radiology Routine Malignant neoplasm of upper lobe of left lung (HCC) Ordered: 03/20/2022 [facility] Work Phone: Comment on above: Ordered: 03/20/2022 CT SIM PLANNING RADIATION ONCOLOGY CT SIM PLANNING RADIATION ONCOLOGY Radiology Routine Malignant neoplasm of unspecified part of unspecified bronchus or lung (HCC) Ordered: 10/21/2022 [facility] Work Phone: Comment on above: Ordered: 10/21/2022 CT SIM PLANNING RADIATION ONCOLOGY CT SIM PLANNING RADIATION ONCOLOGY Radiology Routine Oropharnyx cancer (HCC) Ordered: 06/11/2023 [facility] Work Phone: Comment on above: Ordered: 06/11/2023 Eosinophils/100 leukocytes in Blood by Automated count [facility] Erythrocyte distribution width [Ratio] by Automated count [facility] Erythrocytes [#/volu me] in Blood [facility] Hematocrit [Volume Fraction] of Blood [facility] Hemoglobin [Mass/volume] in Blood [facility] Hemoglobin.gastroint est inal.lower [Presence] in Stool by Immunoassay FECAL OCCULT BLOOD TEST Lab Routine Malignant neoplasm of upper lobe of left lung (HCC) Ordered: 02/07/2022 [facility] Work Phone: Comment on above: Ordered: 02/07/2022 Hepatic function 200 0 panel - Serum or Plasma HEPATIC FUNCTION PNL Lab STAT Malignant neoplasm of upper lobe of left lung (HCC) 11/11/2022 2:47 PM EDT [facility] Work Phone: INR in Platelet poor plasma by Coagulation assay [facility] Leukocytes [#/volume ] corrected for nucleated erythrocytes in Blood by Automated coun [facility] Leukocytes [#/volume ] in Blood [facility] End: 04-14-2025 LUNG DIFFUSION CAPACITY (DLCO) LUNG DIFFUSION CAPACITY (DLCO) PFT Routine Centrilobular emphysema (HCC) Dyspnea on exertion 1 Occurrences starting 03/15/2024 until 04/14/2025 [facility] Comment on above: 1 Occurrences starti ng 03/15/2024 until 04/14/2025 Lymphocytes [#/volum e] in Blood by Automated count [facility] Lymphocytes/100 leukocytes in Blood by Automated count [facility] MCH [Entitic mass] b y Automated count [facility] MCHC [Mass/volume] b y Automated count [facility] MCV [Entitic volume] by Automated count [facility] Monocytes [#/volume] in Blood by Automated count [facility] Monocytes/100 leukocytes in Blood by Automated count [facility] MRA Head vessels WO contrast [facility] Neutrophils [#/volum e] in Blood by Automated count [facility] Neutrophils/100 leukocytes in Blood by Automated count [facility] End: 10-23-2023 NM PET/CT SKULL-THIGH SUBSEQUENT NM PET/CT SKULL-THIGH SUBSEQUENT Radiology Routine Lung nodules 1 Occurrences starting 09/23/2022 until 10/23/2023 [facility] Work Phone: Comment on above: 1 Occurrences starti ng 09/23/2022 until 10/23/2023 End: 09-23-2024 NM PET/CT SKULL-THIGH SUBSEQUENT NM PET/CT SKULL-THIGH SUBSEQUENT Radiology Routine 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) 1 Occurrences starting 08/25/2023 until 09/23/2024 [facility] Work Phone: Comment on above: 1 Occurrences starti ng 08/25/2023 until 09/23/2024 Nucleated erythrocyt es [Presence] in Blood by Automated count [facility] Patient Education [facility] Work Phone: Patient referral [facility] Work Phone: End: 12-03-2024 PET+CT Guidance for localization of tumor of Skull base to mid-thigh-- W 18F-FDG IV NM PET/CT SKULL-THIGH SUBSEQUENT Radiology Routine 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) 1 Occurrences starting 11/04/2023 until 12/03/2024 [facility] Work Phone: Comment on above: 1 Occurrences starti ng 11/04/2023 until 12/03/2024 End: 03-04-2025 PET+CT Guidance for localization of tumor of Skull base to mid-thigh-- W 18F-FDG IV NM PET/CT SKULL-THIGH SUBSEQUENT Radiology Routine 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 Swelling of arm Cancer associated pain 1 Occurrences starting 02/03/2024 until 03/04/2025 [facility] Comment on above: 1 Occurrences starti ng 02/03/2024 until 03/04/2025 Platelet mean volume [Entitic volume] in Blood by Automated count [facility] Platelets [#/volume] in Blood [facility] Prothrombin time (PT) [facility] End: 11-10-2022 Radiologic exam chest 2 views XR CHEST 2V FRONTAL/LAT Radiology Routine Malignant neoplasm of upper lobe of left lung (HCC) 1 Occurrences starting 10/11/2021 until 11/10/2022 [facility] Work Phone: Comment on above: 1 Occurrences starti ng 10/11/2021 until 11/10/2022 SPIROMETRY WITH DILA TOR IF OBSTRUCTED SPIROMETRY WITH DILATOR IF OBSTRUCTED PFT Routine Chronic obstructive pulmonary disease, unspecified COPD type (HCC) Lung nodule 01/29/2022 7:47 AM EDT [facility] Work Phone: End: 04-14-2025 SPIROMETRY WITH DILATOR IF OBSTRUCTED SPIROMETRY WITH DILATOR IF OBSTRUCTED PFT Routine Centrilobular emphysema (HCC) Dyspnea on exertion 1 Occurrences starting 03/15/2024 until 04/14/2025 [facility] Work Phone: Comment on above: 1 Occurrences starti ng 03/15/2024 until 04/14/2025 End: 03-04-2025 US Upper extremity vein - left US DVT UPPER LEFT Radiology STAT 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) Swelling of arm 1 Occurrences starting 02/03/2024 until 03/04/2025 [facility] Comment on above: 1 Occurrences starti ng 02/03/2024 until 03/04/2025 [facility] Immunizations Immunization Date Immunization Notes Care Provider [facility] 12-13-2020 COVID-19 vaccine, fu ll dose (MODERNA) Aracelis Carrillo APRN.HEALTH OFFICER Work Phone: [facility] 11-15-2020 COVID-19 vaccine, fu ll dose (MODERNA) Aracelis Carrillo APRN.HEALTH OFFICER Work Phone: [facility] 10-13-2020 diphtheria, tetanus toxoids and pertussis vaccine Aracelis Carrillo APRN.HEALTH OFFICER Work Phone: [facility] Payers Date Payer Category Payer Self-pay [id number] 2023 Private Health Insurance 101 [id number] 2022 Medicare MEDICARE MEDICAR E A AND B [id number] 2022-[facility] [phone] [place] [address] Medicare [id number] 2022 Medicare [id number] 2019 Medicaid [id number] 2000 Medicaid [id number] 1959 Medicare [id number] 1959 Unknown [id number] 1957 Unknown [id number] 2.16.840.1.842939.3.579.2.6 1957 Unknown [id number] ..840.1.156576.3.579.2.5 1957 Unknown [id number] 2.16.840.1.457147.3.579.2.5 1957 Unknown [id number] 2.16.840.1.602943.3.579.2.5 1957 Unknown [id number] 2.16.840.1.733810.3.579.2.5 1957 Unknown [id number] 2.16.840.1.196041.3.579.2.5 93 1957 Unknown [id number] 2.16.840.1.572062.3.579.2.5 93 1957 Unknown [id number] 2.16.840.1.413283.3.579.2.5 1957 Unknown [id number] 2.16.840.1.605549.3.579.2.5 1957 Unknown [id number] 2.16.840.1.843240.3.579.2.5 1957 Unknown [id number] 2.16.840.1.339262.3.579.2.5 93 1957 Unknown [id number] 2.16.840.1.400898.3.579.2.3 1957 Unknown [id number] 2.16.840.1.548730.3.579.2.7 1957 Unknown [id number] 2.16.840.1.714611.3.579.2.7 1957 Unknown [id number] 2.16.840.1.165508.3.579.2.7 1957 Unknown [id number] 2.16.840.1.352262.3.579.2.7 1957 Unknown [id number] 2.16.840.1.792151.3.579.2.7 1957 Unknown [id number] 2.16.840.1.816109.3.579.2.7 1957 Unknown [id number] 2.16.840.1.812398.3.579.2.7 1957 Unknown [id number] 2.16.840.1.679828.3.579.2.7 1957 Unknown [id number] 2.16.840.1.369902.3.579.2.7 1957 Unknown [id number] 2.16.840.1.861066.3.579.2.7 1957 Unknown [id number] 2.16.840.1.031886.3.579.2.7 1957 Unknown [id number] 2.16.840.1.366993.3.579.2.7 1957 Unknown [id number] 2.16.840.1.193744.3.579.2.7 1957 Unknown [id number] 2.16.840.1.150061.3.579.2.7 27 1957 Unknown [id number] 2.16.840.1.988175.3.579.2.7 27 1957 Unknown [id number] 2.16.840.1.002954.3.579.2.7 27 1957 Unknown [id number] 2.16.840.1.312224.3.579.2.7 27 Unknown [id number] 2.16.840.1.654599.3.579.2.5 31 Unknown [id number] 2.16.840.1.980241.3.579.2.5 31 Unknown [id number] 2.16.840.1.124475.3.579.2.5 31 Unknown [id number] 2.16.840.1.539255.3.579.2.5 31 Social History Date Type Detail Facility Start: 07-03-2021 End: 04-30-2022 Tobacco smoking status NHIS Ex-smoker [facility] Start: 07-21-1970 End: 07-13-2020 History of tobacco use Current smoker [facility] Start: 07-21-1970 End: 07-21-2020 History of tobacco use Cigarette Smoker [facility] Start: 07-03-2021 End: 04-30-2022 Tobacco use and exposure Smokeless tobacco non-user [facility] Start: 10-11-2021 End: 10-20-2023 Alcohol intake Current drinker of alcohol (finding) [facility] Start: 10-11-2021 End: 11-20-2022 Alcohol intake [facility] Start: 09-25-2021 End: 03-26-2022 Tobacco Comment was smoking on and off fully quit 09/14/21 [facility] Start: 1955 Sex Assigned At Not on file [facility] Start: 04-27-2021 End: 06-11-2022 Exposure to SARS-CoV-2 (event) Not sure [facility] Start: 10-19-2021 History SDOH Alcohol Comment 4-9 beers per day [facility] Start: 04-16-2021 Tobacco smoking stat us NHIS Current some day smoker [facility] Start: 1955 Sex Assigned At Male F [facility] History of tobacco use Passive smoker [facility] Start: 11-20-2022 End: 01-28-2023 Tobacco use panel [facility] Adult Depression Screening Assessment 0 [facility] Start: 07-21-1970 Tobacco smoking stat us NHIS Light tobacco smoker [facility] Goals Date Patient Goal Desired Activity /State Functional Status Date Assessment Result Facility 03-19-2024 Functional status Patient at Baseline [facility] Work Phone: Mental Status Date Assessment Result Facility 03-19-2024 Cognitive function Cognitive Sta tus Patient at Baseline [facility] Work Phone: Clinical Notes 05-28-2021 to 03-31-2024 Telephone Encounter - Denita Rai RN - 03/31/2024 12:22 PM EDTTelephone Encounter - Denita Rai RN - 03/31/2024 12:22 PM EDT Note Date & Type Note Facility 03-31-2024 Telephone encount er Note DISCHARGE CALL BACK Today's date: March 31, 2024 Notified of Pt discharge by: Call placed to [facility] for follow up. Patient discharged on 03/30/24 from [facility] Med Surg to Home Primary Cancer Diagnosis: Metastatic Lung Cancer Admitting Diagnosis: Acute Respiratory Failure Discharge Summary/SBAR reviewed: Yes Handoff Discussed with [employer]: No, unavailable Psychosocial Risk Factors: None If patient discharged to SNF/Rehab Facility, phone call completed to reinforce discharge instructions and follow up: N/A Call Disposition: Readmitted or In Emergency Department. Pt presented to ER due to c/o left arm swelling. Denita Rai RN [facility] Work Phone: 03-31-2024 Miscellaneous Notes Formattin g of this note might be different from the original. DISCHARGE CALL BACK Today's date: March 31, 2024 Notified of Pt discharge by: Call placed to [facility] for follow up. Patient discharged on 03/30/24 from [facility] Med Surg to Home Primary Cancer Diagnosis: Metastatic Lung Cancer Admitting Diagnosis: Acute Respiratory Failure Discharge Summary/SBAR reviewed: Yes Handoff Discussed with Transitional Construction Driller: No, unavailable Psychosocial Risk Factors: None If patient discharged to SNF/Rehab Facility, phone call completed to reinforce discharge instructions and follow up: N/A Call Disposition: Readmitted or In Emergency Department. Pt presented to ER due to c/o left arm swelling. Denita Rai RN documented in this encounter [facility] 03-29-2024 Telephone encount er Note The following approved medication requests have been transmitted electronically. Requested Prescriptions Signed Prescriptions Disp Refills dexAMETHasone (DECADRON) 4 mg tablet 30 tablet 1 Sig: take 1 tablet by mouth twice daily with meals Authorizing Provider: ESTELLA FISH RN [facility] 03-29-2024 Miscellaneous Notes Formattin g of [...] Marichuy Coronel RN documented in this encounter [facility] 03-29-2024 Telephone encount er Note pharmacy phones requesting refills as follows: Last ordered 03/09/24 Last pall med visit on 03/17/24 Future appt 04/14/24 Requested Prescriptions Pending Prescriptions Disp Refills dexAMETHasone (DECADRON) 4 mg tablet [Pharmacy Med Name: dexamethasone 4 mg tablet] 30 tablet 1 Sig: take 1 tablet by mouth twice daily with meals Please review and advise. Marichuy Coroenl RN [facility] 03-20-2024 Consult note Note Date/Time March 20, 2024 11:06am [facility] [address] [place] [address] Neurology Consult Note Signed Patient: Cristal Gu MR#: [id number] : 1955 Acct:[id number] Age/Sex: 69 / M Adm Date: 4 Loc: Room: [address] [place] [address] Type: ADM INOo Attending Dr: Jair Nichols MD Copies to: NON STAFF MD Denisse Olivia DO~ HPI Consult Date: 03/20/24 Can Bander Operator: Denisse Dial DO Reason for consult: [...] exericsing lately. [facility]. He quite walking [...] later on as he changed his mind. [facility] Medical History Diverticulosis History of rib fracture [...] of dysmetria with good rapid alternating movements [id number] Tone is physiologic Sensation is intact to [...] Debility: Documented By: Denisse Dial DO 03/20/24 5592 Signed By: <Electronically signed by DO Denisse Dial> 03/20/24 1229 [facility] Work Phone: 1(334) 516-880908-31-2024 History and physical note Author Jair Nichols [facility] March 19, 2024 10:21pm Note Date/Time March 19, 2024 10 :21pm [facility] [address] [place] [address] Hospitalist H&P Signed Patient: Cristal Gu MR#: [id number] : 1955 Acct:[id number] Age/Sex: 69 / M Adm Date: 4 Loc: Room: [address] [place] [address] Type: ADM INOo Attending Dr: Jair Nichols [...] heat intolerance Hematologic/Lymphatic Hematologic/Lymphatic: Denies easy bruising [facility] Medical History Diverticulosis History of rib fracture [...] inpatient consult. He sees Dr. Grigsby from [facility]. Patient may follow-up with him as [...] By: <Electronically signed by Jair Nichols MD> 03/19/24 2224 [facility] Work Phone: 1(884) 865-237608-29-2024 Nurse Note* Pavitrha Jacinto MA - 03/18/2024 1:25 PM EDT Patient son states that this morning he was acting strange, says that he put teeth in microwave, other son said he was eating dog food-Okie states he was picking it up because it was on the floor. They are not sure if it is his medications or not. Pavithra Jacinto MA [facility]08-29-2024 Nurse Note* Pavithra Jacinto MA - 03/18/2024 1:25 PM EDT Patient son states that this morning he was acting strange, says that he put teeth in microwave, other son said he was eating dog food-Oksenait states he was picking it up because it was on the floor. They are not sure if it is his medications or not. Pavithra Jacinto MA documented in this encounterTrihealth Mcc[facility]08-28-2024 [facility] History of Present illness Narrative* Nina Grigsby MD - 03/17/2024 1:56 PM EDT PATIENT NAME: Cristal Gu DATE: 03/18/2024 PRIMARY CARE PHYSICIAN: Dr. Christina Azul OTHER PHYSICIANS: Dr. Verito Whelan, Dr. Marianne Fields, Dr. Damon Tse ([facility]) Dr. Limon, Christina Fish Portions [...] 2019: Peripheral arterial disease (HCC) Comment: R CORRECTIONAL OFFICER LIEUTENANT stent PAST SURGICAL HISTORY: PAST SURGICAL HISTORY 2019: BACK SURGERY HX 2016: CABG (4) VEIN GRAFTS & ARTERIAL GRAFT(S) 2019: LOWER EXTREMITY PRESCHOOL ASSISTANT PRINCIPAL W/WO STENT; Right Comment: right common femoral [...] swelling and hand discoloration resolved. PATHOLOGY: 10/21/2022 [id number] NGS analysis KRAS G12C mutation present, 5.2% [...] No hypermetabolic osseous lesions 01/03/2023 Chest CTA ([facility]) Bilateral hilar soft tissue nodules concerning for [...] as above. 04/12/2022 Bone scan ([facility]) Degenerative findings. No evidence of metastatic [...] tonsil. The patient was initially seen by [facility] on 07/26/2021, and clinical evaluation was most consistent with inflammatory/post-infectious findings. The patient was advised to stop chewing tobacco and continue close observation. Follow-up PET 05/12/2023 revealed significant increased size and metabolism of the right tonsillar mass. The patient was reevaluated by [facility] May 2023 and it was [...] uses Percocet as needed. Continue management per [facility] palliative medicine. 7. Abnormal LFTs Labs [...] it was recommended he proceed to the [facility] emergency room today for urgent evaluation to include brain scan. Based on scan results neurology consult should be considered. Nina Grigsby MD documented in this encounterTrihealth Mcc[facility]08-28-2024 NoteMer[facility]08-28-2024 History of Present illness Narrative* Estella Fish APRN.HEALTH OFFICER - 03/17/2024 12:38 PM EDT PALLIATIVE MEDICINE VIRTUAL PROGRESS NOTE SERVICE DATE: 03/17/2024 This visit was conducted as a virtual/telehealth visit, in lieu of a face to face encounter,patient's identity and physical location were verified at the time of this visit. Either the patient or their legal sales representative sales manager has been informed of the risks and [...] increased anxiety with increasing pain. Modified ESAS ([place] Symptom Assessment Scale) Information Provided By: Patient [...] was identified. 03/17/2024 by Estella Fish NP, SHEET METAL WORK FURNACE 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 Urine Screen Lab Results Component Value Date UAMPH Negative 09/26/2021 UBARB2 Negative 09/26/2021 UBENZ Negative 09/26/2021 UCOC2 Negative 09/26/2021 UOPI Negative 09/26/2021 UOXYC Negative 09/26/2021 UPCP Negative 09/26/2021 UTHC Negative 09/26/2021 UETOH <11 09/26/2021 Assessment & Plan (Z51.5) Palliative care by specialist (primary encounter diagnosis) - Reviewed philosophy of palliative medicine - Discussed services offered by [employer] - Provided support -Discussed services offered by palliative medicine and how to contact us (C35.92) 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) (G89.3) Cancer associated pain - lyrica 100 mg po tid - transdermal Fentanyl 100 mcg/ hr - Oxycodone 10- 20 mg po every 4 hours prn pain - Effexor 37.5 (E46) Protein-calorie malnutrition, unspecified severity (HCC) (R63.0) Anorexia (R11.0) Nausea - Continue Zofran prn every 8 hours - Increase [id number] mg p.o. at bedtime -Small frequent meals [...] lead to or permanent disability - Continue [id number] mg p.o. at bedtime - Effexor 37.5 [...] 4 Weeks in person Estella Fish NP, SHEET METAL WORK FURNACE 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 March 17, 2024 1:24 PM I spent a total of 35 minutes on the date of the service which included preparing to see the patient, fvqw-ws-uhfk patient care, completing clinical documentation, obtaining and/or reviewing separately obtained history, performing a medically appropriate examination, counseling and educating the pat ient/family/caregiver, ordering medications, tests, or procedures, communicating with other HCPs (not separately reported), independently interpreting results (not separately reported), communicatingresults to the patient/family/caregiver, and care coordination (not separately reported). This note may have been partially generated using the [employer] voice recognition system. While every effort was made to correct voice recognition errors, kindly be aware that some errors may occasionally occur.occur documented in this encounterTrihealth Mcc[facility]08-28-2024 NoteMer[facility]08-26-2024 NoteMer[facility]08-26-2024 History of Present illness Narrative* Merary [...] of breath. Takes anxiety medication which helps. Pall med appt tomorrow No recent pneumonia. He has been coughing up green things. He took an antibiotic, a pink pill, couple weeks ago. Maybe amoxicillin 02/04. Sounds like he was treated for bronchitis or exacerbation, unclear to me, at an outside facility. He has gone to ER for sob. Up until a couple of months ago he [facility]. 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 Former smoker: quit about a year [...] 2019: Peripheral arterial disease (HCC) Comment: R CORRECTIONAL OFFICER LIEUTENANT stent PAST SURGICAL HISTORY 2019: BACK SURGERY HX 2016: CABG (4) VEIN GRAFTS & ARTERIAL GRAFT(S) 2019: LOWER EXTREMITY PRESCHOOL ASSISTANT PRINCIPAL W/WO STENT; Right Comment: right common femoral [...] Lucas MD Pulmonary & Critical Care Medicine [facility] March 15, 2024 1:01 PM I spent a total of 40 minutes on the date of the service which included preparing to see the patient, tajb-kw-sksu patient care, completing clinical documentation, obtaining and/or reviewing separately obtained history, performing a medically appropriate examination, counseling and educating the pat ient/family/caregiver, ordering medications, tests, or procedures, communicating with other HCPs (not separately reported), independently interpreting results (not separately reported), and communicating results to the patient/family/caregiver. documented in this encounterTrihealth Mccull[facility]08-26-2024 Telephone encounter Note * Telephone Encounter - Denita Rai RN - 03/15/2024 9:49 AM EDT Pt calls requesting the address for today's appointment in [place]. Address provided to pt. Name of physician spelled out over the phone per pt request as well. Pt also asks for the date and time of hisPall Med appointment. Informed pt that he is currently scheduled to see Estella Fish this Friday, 03/17 @ 1030 in our [place] office. Appointment details written down per pt. Pt denies any other questions at this time. Denita Rai RN [facility] Work Phone: [phone] Miscellaneous Notes* Telephone Encounter - Denita Rai RN - 03/15/2024 9:49 AM EDT Pt calls requesting the address for today's appointment in [place]. Address provided to pt. Name of physician spelled out over the phone per pt request as well. Pt also [facility] Informed pt that he is currently scheduled to see Estella Fish this Friday, 03/17 @ 1030 in our [place] office. Appointment details written down per pt. Pt denies any other questions at this time. Denita Rai RN documented in this encounterTrihealth Mcc[facility]08-20-2024 Telephone encounter Note * Telephone Encounter - Julieth Tapia RN - 03/09/2024 2:05 PM EDT Palliative Medicine Care Coordination Follow up Phone Call Patient returned our call. Patient identified by name and : Yes Spoke with Pérez. Let him know Christina VILLEDA would like to trial a steroid and she sent a prescription to his [facility] pharmacy. Instructed him to follow the directions [...] Tapia RN March 09, 2024 2:10 PM [facility]08-20-2024 Miscellaneous Notes* Telephone Encounter - Julieth Tapia RN - 03/09/2024 2:05 PM EDT Palliative Medicine Care Coordination Follow up Phone Call Patient returned our call. Patient identified by name and : Yes Spoke with Pérez. Let him know Christina VILLEDA would like to trial a steroid and she sent a prescription to his [facility] pharmacy. Instructed him to follow the directions [...] PM * Telephone Encounter - Estella Fish APRN.HEALTH OFFICER - 03/09/2024 1:17 PM EDT Lets try a dex pain taper, sent to [facility] He can also place two transdermal Fentanyl [...] medication he could take. His pharmacy is [facility] in [place]. Please advise. Thanks! Deborah Warner RN documented in this encounterTrihealth Mcc[facility]08-20-2024 Telephone encounter Note * Telephone Encounter - Denita Rai RN - 03/09/2024 1:52 PM EDT Pt calls w/ c/o increased pain. Informed pt that Pall Med attempted to contact him earlier today, but his voicemail was full. Phone number for Pall Med given to pt. Pt verbalizes understanding and will call them back. Denita Rai RN [facility] Work Phone: [phone] Telephone encounter Note* Telephone Encounter - Julieth Tapia RN - 03/09/2024 1:27 PM EDT Palliative Medicine Care Coordination Follow up Phone Call Telephone call to Cristal Gu and his brother Christina Gu with no answer, both VM's say VM box full and unable to leave a message. Julieth Tapia RN March 09, 2024 1:30 PM [facility]08-20-2024 Telephone encounter Note* Telephone Encounter - Estella Fish APRN.RONAL - 03/09/2024 1:17 PM EDT Lets try a dex pain taper, sent to [facility] He can also place two transdermal Fentanyl Patches on for a total of 100 mcg/hr [facility]08-20-2024 Telephone encounter Note* Telephone Encounter - [...] medication he could take. His pharmacy is [facility] in [place]. Please advise. Thanks! Deborah Warner RN [facility]08-20-2024 Telephone encounter Note* Telephone Encounter - Yusef Pandya PA-C - 03/09/2024 11:30 AM EDT Orders in Yusef Pandya PA-C [facility] Work Phone: [phone] Miscellaneous Notes* Telephone Encounter - Yusef Pandya PA-C - 03/09/2024 11:30 AM EDT Orders in Yusef Pandya PA-C * Telephone Encounter - Hannah Oglebsy RN - 03/09/2024 11:10 AM EDT Pt here for PET today-wt decreased to 48 kg, states he has no appetite, not eating or drinking much . If agreeable please place IV fluid order for today while here for PET. Pt states fluids may 'perk me up F/u with Dr. Grigsby on 03/18 documented in this encounterTrihealth Mcc[facility]08-20-2024 Telephone encounter Note * Telephone Encounter - Hannah Oglesby RN - 03/09/2024 11:10 AM EDT Pt here for PET today-wt decreased to 48 kg, states he has no appetite, not eating or drinking much . If agreeable please place IV fluid order for today while here for PET. Pt states fluids may 'perk me up F/u with Dr. Grigsby on 03/18 [facility]08-20-2024 History of Present illness Narrative* Hannah [...] 09, 2024 TIME: 10:28 AM * Denita Yang, RT(R) - 03/09/2024 9:00 AM EDT RADIOLOGY SERVICE PROGRESS NOTE SERVICE DATE: 03/09/2024 SERVICE TIME: 10:38 AM PATIENT IDENTITY VERIFICATION COMPLETED USING TWO (2) STANDARD IDENTIFIERS: Name and Date of confirmed by patient verbally POST EXAM PIV STATUS: Discontinued PROCEDURE TYPE: NM INJECT: PET/CT BODY SCAN. 5.8 mCi F18 FDG. No other medications given.. ADMINISTRATION TIME: 1023 PATIENT DISCHARGED TO: Ambulatory patient, left [place] department area. A Diagnostic radioactive procedure has taken place, with no further precautions necessary other than routine body substance precautions. More information regarding radiation safety can be found usingthis link: [email or web address] SIGNATURE: RT Charis(R) PATIENT NAME: Cristal Gu DATE: March 09, 2024 TIME: 10:38 AM PAGER/CONTACT #: documented in this encounterTrihealth Mccull[facility]08-20-2024 NoteMer[facility]08-20-2024 NoteMer[facility]08-13-2024 Telephone encounter Note* Telephone Encounter - Florida Kearney - 03/02/2024 10:53 AM EDT Patient is scheduled with Dr Guaman in the [place] office on 03/09/2024 at 10 am per Tomasa from care everywhere. Spoke to patient & he stated he wasn't at home & was going to call us later to give us the appointment date & time of the ENT appointment. So, patient aware of appointment. MONA Hand [facility]08-13-2024 Miscellaneous Notes* Telephone Encounter - Florida Kearney - 03/02/2024 10:53 AM EDT Patient is scheduled with Dr Guaman in the [place] office on 03/09/2024 at 10 am per [...] patient to schedule * Telephone Encounter - Cristel Duncan Vanessa Jaci - 02/25/2024 10:44 AM EDT Records faxed to Dr. Hayward. * Telephone Encounter - [place] Kearney - 02/24/2024 1:46 PM EDT Spoke to point of care specialist at Dr Hayward's office at [phone] at [facility]. She needed the referral in order to get patient scheduled. Faxed referral order over to their office at [phone]. I will call the office back to check on status of appointment tomorrow or next day. Florida Kearney PSS * Telephone Encounter - Denita Rai RN - 02/24/2024 12:19 PM EDT Clerical: Please refer pt to ENT. Abnormal CT neck. Recommending scope. Pt would like seen JATINDER. Local or F. Whichever can see him 1st. Denita Rai [...] out? Denita Rai RN documented in this encounterTrihealth Mcc[facility]08-12-2024 Telephone encounter Note * Telephone Encounter - Estella Fish APRN.CNP - 03/01/2024 3:22 PM EDT It has been over 90 days since I saw Maren, he has missed appts. I cn give him 7 days worth of meds, but he needs to see me before I can prescribe more. [facility]08-12-2024 Miscellaneous Notes* Telephone Encounter - Estella [...] Get Hernandes - 03/01/2024 12:03 PM EDT [facility] is calling today regarding Refill Request Patient has been identified by name and birthdate. Requesting delivery method: call/escript to: [facility] Additional Concern: N/A Requesting response back: N/A [phone] (home) Get [facility] March 01, 2024 documented in this encounterTrihealth Mcc[facility]08-12-2024 Telephone encounter Note * Telephone Encounter [...] Please review and advise. Arianna Saha RN [facility]08-12-2024 Telephone encounter Note* Telephone Encounter - Get Hernandes - 03/01/2024 12:03 PM EDT [facility] is calling today regarding Refill Request Patient has been identified by name and birthdate. Requesting delivery method: call/escript to: [facility] Additional Concern: N/A Requesting response back: N/A [phone] (home) [facility] March 01, 2024 [facility]08-08-2024 Telephone encounter Note* Telephone Encounter - Bernadine Davis - 02/26/2024 10:16 AM EDT Spoke with Dr Douglas office he will be looking over his stuff today and then they will call patient to schedule [facility]08-07-2024 Telephone encounter Note* Telephone Encounter - Vanessa Carl - 02/25/2024 10:44 AM EDT Records faxed to Dr. Hayward. [facility]08-06-2024 Telephone encounter Note* Telephone Encounter - Florida Kearney - 02/24/2024 1:46 PM EDT Spoke to point of care specialist at Dr Hayward's office at [phone] at [facility]. She needed the referral in order to get patient scheduled. Faxed referral order over to their office at [phone]. I will call the office back to check on status of appointment tomorrow or next day. Florida Kearney, PSS [facility]08-06-2024 Telephone encounter Note* Telephone Encounter - Denita Rai RN - 02/24/2024 12:19 PM EDT Clerical: Please refer pt to ENT. Abnormal CT neck. Recommending scope. Pt would like seen JATINDER. Local or [facility]. Whichever can see him 1st. Denita Rai RN [facility]08-06-2024 Telephone encounter Note* Telephone Encounter - [...] since [facility] is out? Denita Rai RN [facility]08-02-2024 Telephone encounter Note* Telephone Encounter - Paty Chapman APRN.CNP - 02/20/2024 2:51 PM EDT PDMP website checked and validated. All prescriptions have been APPROPRIATELY filled. No suspiciousactivity was identified. 02/20/2024 by Paty Chapman APRN.ORNAL [facility]08-02-2024 Miscellaneous Notes* Telephone Encounter - Paty Chapman APRN.CNP - 02/20/2024 2:51 PM EDT PDMP website checked and validated. All prescriptions have been APPROPRIATELY filled. No suspiciousactivity was identified. 02/20/2024 by Paty Chapman APRN.RONAL * Telephone Encounter - Arianna Saha RN - 02/20/2024 1:44 PM EDT Tc spoke to [facility], He feels his pain in his arm is worse. Not new pain. Pain where he had radiation worse as they day goes on. Medication review: Lyrica- 75mg TID- stopped taking- needs refill never called when ran out. Oxycodone 10-20mg g7nsjis PRN- 3x per day 2 tabs at time. No pain when wakes up medication helps. Denies need for refills. Fentanyl- 50mcg, ran out of medication needs refills. Discussed resuming medications will help with pain. Has visit with Christina Carpenter next week. Suggest to restart meds and follow up at scheduled visit. Agrees with plan. Provided office numbers and educated roberto when he needs refills. Patient phones requesting [...] Yolande Bishop - 02/20/2024 11:04 AM EDT Cristal Gu is calling today regarding Numbness and [...] birthdate. Requesting response back: call at home [phone] Yolande Bishop February 20, 2024 documented in this encounterTrihealth Mcc[facility]08-02-2024 Telephone encounter Note * Telephone Encounter - Arianna Saha RN - 02/20/2024 1:44 PM EDT Tc spoke to Cristal Gu, He feels his pain in his arm is worse. Not new pain. Pain where he had radiation worse as they day goes on. Medication review: Lyrica- 75mg TID- stopped taking- needs refill never called when ran out. Oxycodone 10-20mg [id number] PRN- 3x per day 2 tabs at time. No pain when wakes up medication helps. Denies need for refills. Fentanyl- 50mcg, ran out of medication needs refills. Discussed resuming medications will help with pain. Has visit with Christina Carpenter next week. Suggest to restart meds and follow up at scheduled visit. Agrees with plan. Provided office numbers and educated roberto when he needs refills. Patient phones requesting [...] Please review and advise. Arianna Saha RN [facility]08-02-2024 Telephone encounter Note* Telephone Encounter - Denita Rai RN - 02/20/2024 1:07 PM EDT Pt of Dr Grigsby's w/ NSCLC on [facility]. States he used to have an inhaler [...] out of the office? Denita Rai RN [facility]08-02-2024 Miscellaneous Notes* Telephone Encounter - Denita Rai RN - 02/20/2024 1:07 PM EDT Pt of Dr Grigsby's w/ NSCLC on [facility]. States he used to have an inhaler [...] office? Denita Rai RN documented in this encounterTrihealth [facility]08-02-2024 Telephone encounter Note * Telephone Encounter - Yolande Bishop - 02/20/2024 11:04 AM EDT Cristal Gu is calling today regarding Numbness and [...] birthdate. Requesting response back: call at home [phone] Yolande Bishop February 20, 2024 [facility]08-01-2024 Telephone encounter Note* Telephone Encounter - Rolanda Arrington - 02/19/2024 1:55 PM EDT Called [facility] V[facility] office. Patient is scheduled to see Dr Beyer on 03/02 @ 10:30. Rolanda Lawrence [facility]08-01-2024 Miscellaneous Notes* Telephone Encounter - Rolanda Arrington - 02/19/2024 1:55 PM EDT Called [facility] office. Patient is scheduled to see Dr Beyer on 03/02 @ 10:30. Rolanda Lawrence * Telephone Encounter - Rolanda Arrington - 02/18/2024 1:22 PM EDT Called [facility] office spoke with Emperatriz. She states she will reach out to patient this afternoon to get scheduled. Rolanda Lawrence * Telephone Encounter - Enrique Boland - 02/09/2024 10:42 AM EDT Confirmed referral was received at Vascular. They are currently working on referral and going to call patient. * [facility] 02/05/2024 1:10 PM EDT Records re-faxed to [facility]. * Telephone Encounter - Rolanda Arrington - 02/05/2024 12:51 PM EDT Called [facility] office they have not received this referral and asked us to please refax it tothem. Tomasa: Please refax this referral. Thank You, Rolanda Oneil Pss * Telephone Encounter - Cristel [facility] Vanessa L - 02/04/2024 3:47 PM EDT Records faxed to [facility]. * Telephone Encounter - Yusef Pandya PA-C - 02/04/2024 2:10 PM EDT Order was already placed Yusef Pandya PA-C * Telephone Encounter - Bernadine Davis - 02/04/2024 2:05 PM EDT Please send records to Erma ruiz * Telephone Encounter - Denita Rai RN [...] EDT Patient will be going today to [place] for STAT US @ 2:00 pm. Lisa Figueroa documented in this encounterTrihealth [facility]07[facility] Telephone encounter Note * Telephone Encounter - Rolanda Arrington - 02/18/2024 1:22 PM EDT [facility] office spoke with Emperatriz. She states she will reach out to patient this afternoon to get scheduled. Rolanda Lawrence [facility]07-31-2024 Telephone encounter Note* Telephone Encounter - [...] and medication. Pt confirms that he has [facility] phone number and agrees to contact the [facility] RNCC. Denita Rai RN [facility] Work Phone: [phone]) 589-677007-31-2024 Miscellaneous Notes* Telephone Encounter - Denita Rai, KERRY - 02/18/2024 11:44 AM EDT FYI: Pt [...] RNCC. Denita Rai RN documented in this encounterTrihealth [facility]07-29-2024 Telephone encounter Note * Telephone Encounter - Nina Grigsby MD - 02/16/2024 4:59 PM EDT Agree the patient will need to be seen by pulmonary to determine the need and what type of home oxygen is indicated. [facility]07-29-2024 Miscellaneous Notes* Telephone Encounter - Nina [...] PCP. Pt is scheduled for pulm at [facility] but not until the end of February. Encouraged pt to contact PCP for home oxygen, as well as afollow up from recent hospital visit and previous steroid orders by them. Pt verbalized understanding and states that makes jade sense to him anyhow. Please advise if you have other recommendations. Bernadine Rodriguez RN documented in this encounterTrihealth M[facility]07-29-2024 Telephone encounter Note * Telephone Encounter - Bernadine Rodriguez RN - 02/16/2024 1:27 PM EDT Pt calls stating he would like home oxygen because his breathing treatments and steroids aren't making much of a difference in his breathing. These were prescribed by his PCP. Pt is scheduled for pulm at [facility] but not until the end of February. Encouraged pt to contact PCP for home oxygen, as well as afollow up from recent hospital visit and previous steroid orders by them. Pt verbalized understanding and states that makes jade sense to him anyhow. Please advise if you have other recommendations. Bernadine Rodriguez RN [facility] Work Phone: [phone] Telephone encounter Note* Telephone Encounter - Enrique Boland - 02/16/2024 1:21 PM EDT Spoke to Pérez, gave him information on Pulmonogist appt in [place]. Transferred to Triage ( out of office) to ask about oxygen. [facility]07-29-2024 Miscellaneous Notes* Telephone Encounter - Enrique Boland - 02/16/2024 1:21 PM EDT Spoke to Pérez, gave him information on Pulmonogist appt in [place]. Transferred to Triage ( out of office) to ask about oxygen. * Telephone Encounter - Florida Kearney - 2024 8:42 AM EDT 3rd attempt to get a hold of patient to give date & time of appointment with [facility] Drafting Layout Worker,however no answer & vm full. Florida Kearney * Telephone Encounter - [place] Kearney - 02/12/2024 2:17 PM EDT Tried calling patient again no answer & vm full. [place] Kearney * Telephone Encounter - [place] Kearney - 02/12/2024 10:29 AM EDT Tried calling patient to give date & time of collar turner appointment no answer & vm full.Will try back later. [place] Kearney * Telephone Encounter - [place] Kearney - 02/12/2024 10:20 AM EDT Spoke to Ton at [facility] Pulmonology in [place] at [phone] & scheduled the soonest appointment in [facility] on 03/15/2024@[address] Lucas. [place] Kearney * Telephone Encounter - Denita Rai RN - 02/10/2024 1:39 PM EDT Pt would prefer to see [facility] Drafting Layout Worker. Clerical: Please refer. Thanks! Denita Rai RN * Telephone Encounter - Nina Grigsby MD - 02/10/2024 1:38 PM EDT Order signed. Options would be Dr. Wilson at [facility] or Dr. Rene at [facility] Also we can refer him to [facility] pulmonary in [place]. * Telephone Encounter - Denita Rai RN - 02/10/2024 12:55 PM EDT Pt notified and verbalizes understanding. BRM: Pt asks if you will refer him to a collar turner. Order pended if you approve. Denita Rai RN * Telephone Encounter - Nina Grigsby MD - 02/10/2024 11:50 AM EDT Agree with plan. WILIAM Dennis * Telephone Encounter - Denita Rai, RN - [...] recommendations? Denita Rai, RN documented in this encounterTrihealth [facility]07-[facility]24 Telephone encounter Note * Telephone Encounter - [place] Kearney - 2024 8:42 AM EDT 3rd attempt to get a hold of patient to give date & time of appointment with [facility] Drafting Layout Worker,however no answer & vm full. Florida Kearney [facility]07-25-2024 Telephone encounter Note* Telephone Encounter - [place] Kearney - 02/12/2024 2:17 PM EDT Tried calling patient again no answer & vm full. Florida Kearney [facility]07-25-2024 Telephone encounter Note* Telephone Encounter - [place] Kearney - 02/12/2024 10:29 AM EDT Tried calling patient to give date & time of collar turner appointment no answer & vm full.Will try back later. Flroida Kearney [facility]07-25-2024 Telephone encounter Note* Telephone Encounter - [place] Kearney - 02/12/2024 10:20 AM EDT Spoke to Ton at [facility] Pulmonology in [place] at [phone] & scheduled the soonest appointment in [facility] on 03/15/2024@[address] Lucas. Florida Kearney [facility]07-23-2024 Telephone encounter Note* Telephone Encounter - Denita Rai RN - 02/10/2024 1:39 PM EDT Pt would prefer to see [facility] Drafting Layout Worker. Clerical: Please refer. Thanks! Denita Rai RN [facility]07-23-2024 Telephone encounter Note* Telephone Encounter - Nina Grigsby MD - 02/10/2024 1:38 PM EDT Order signed. Options would be Dr. Wilson at [facility] or Dr. Rene at [facility] Also we can refer him to [facility] pulmonary in [place]. [facility]07-23-2024 Telephone encounter Note* Telephone Encounter - Denita Rai RN - 02/10/2024 12:55 PM EDT Pt notified and verbalizes understanding. BRM: Pt asks if you will refer him to a collar turner. Order pended if you approve. Denita Rai RN [facility]07-23-2024 Telephone encounter Note* Telephone Encounter - Nina Grigsby MD - 02/10/2024 11:50 AM EDT Agree with plan. Jeannie, WILIAM [facility]07-23-2024 Telephone encounter Note* Telephone Encounter - [...] have any other recommendations? Denita Rai RN [facility]07-22-2024 Telephone encounter Note* Telephone Encounter - Enrique Boland - 02/09/2024 10:42 AM EDT Confirmed referral was received at Vascular. They are currently working on referral and going to call patient. [facility]07-18-2024 Telephone encounter Note* Telephone Encounter - Vanessa Carl - 02/05/2024 1:10 PM EDT Records re-faxed to [facility]. [facility]07-18-2024 Telephone encounter Note* Telephone Encounter - Rolanda Arrington - 02/05/2024 12:51 PM EDT Called [facility] V[facility] office they have not received this referral and asked us to please refax it tothem. Tomasa: Please refax this referral. Thank You, Rolanda Oneil Pss [facility]07-17-2024 Telephone encounter Note* Telephone Encounter - Vanessa Carl - 02/04/2024 3:47 PM EDT Records faxed to [facility]. [facility]07-17-2024 Telephone encounter Note* Telephone Encounter - Yusef Pandya PA-C - 02/04/2024 2:10 PM EDT Order was already placed Yusef Pandya PA-C [facility]07-17-2024 Telephone encounter Note* Telephone Encounter - Bernadine Davis - 02/04/2024 2:05 PM EDT Please send records to [facility] please [facility]07-17-2024 Telephone encounter Note* Telephone Encounter - Denita Rai RN - 02/04/2024 1:36 PM EDT Pt notified and agrees to vascular consult. WILIAM/Yusef: Order for consult pended. Clerical: Pt would prefer to see a local physician. Please refer him to Dr Beyer/Dr Sanchez's group. Dx: Left arm swelling. Periodic cyanosis and pain. Denita Rai, RN [facility] Work Phone: [phone] Telephone encounter Note* Telephone Encounter - Denita Rai, KERRY - 02/04/2024 9:02 AM EDT Call placed to pt. Message received stating the number has calling restrictions. Unable to leave a message. Denita Rai RN [facility]07-17-2024 Telephone encounter Note* Telephone Encounter - Yusef Pandya PA-C - 02/04/2024 8:10 AM EDT Please inform patient of results. He should likely see vascular due to the periodic cyanosis and pain and swelling to rule out any vascular issues. Yusef Pandya PA-C [facility]07-17-2024 Telephone encounter Note* Telephone Encounter - Denita Rai RN - 02/04/2024 7:59 AM EDT Yusef: US was negative for DVT or superficial thrombus. Report scanned. Denita Rai RN [facility]07-17-2024 Telephone encounter Note* Telephone Encounter - Vanessa Carl - 02/04/2024 7:56 AM EDT Report scanned. [facility]07-16-2024 Telephone encounter Note* Telephone Encounter - Denita Rai RN - 02/03/2024 4:33 PM EDT Tomasa: Please scan results when available. Thanks! Denita Rai RN [facility]07-16-2024 Telephone encounter Note* Telephone Encounter - Lisa Figueroa - 02/03/2024 12:13 PM EDT Patient will be going today to [place] for STAT US @ 2:00 pm. Lisa Figueroa [facility]07-16-2024 History of Present illness Narrative* Yusef Pandya PA-C - 02/03/2024 11:30 AM EDT PATIENT NAME: Cristal Gu DATE: 02/03/2024 PRIMARY CARE PHYSICIAN: Dr. Christina Azul OTHER PHYSICIANS: Dr. Verito Whelan, Dr. Marianne Fields, Dr. 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 04/12/2022 Bone scan ([facility]) Degenerative findings. No evidence of metastatic [...] tonsillar mass. The patient was reevaluated by [facility] ENT May 2023 and it was [...] 2015. 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 Currently stable. Continue management per PCP/cardiology. [...] uses Percocet as needed. Continue follow-up with [facility] palliative medicine. 7. Abnormal LFTs Labs [...] which included preparing to see the patient, [id number] patient care, completing clinical documentation, performing a medically appropriate examination, counseling and educating the patient/family/caregiver, ordering medications, tests, or p rocedures, independently interpreting results (not separately reported), communicating results to the patient/family/caregiver, and care coordination (not separately reported). documented in this encounterTrihealth [facility]07[facility]20[facility] Telephone encounter Note* Telephone Encounter - Yusef Pandya PA-C - 01/27/2024 4:27 PM EDT Lab orders placed Yusef Pandya PA-C' [facility]07-09-2024 Miscellaneous Notes* Telephone Encounter - Yusef Pandya PA-C - 01/27/2024 4:27 PM EDT Lab orders placed Yusef Pandya PA-C' * Telephone Encounter - Pavithra Jacinto MA - 01/27/2024 11:38 AM EDT Patient has an appt on 02/03/24. Would you like additional labs, if so place orders. Thanks. MICHOACANO Stephens documented in this encounterTrihealth [facility]07-[facility]-2024 Telephone encounter Note * Telephone Encounter - Pavithra Jacinto MA - 01/27/2024 11:38 AM EDT Patient has an appt on 02/03/24. Would you like additional labs, if so place orders. Thanks. MICHOACANO Stephens [facility]06-25-2024 Telephone encounter Note* Telephone Encounter - [...] Tapia RN January 13, 2024 1:19 PM [facility]06-25-2024 Miscellaneous Notes* Telephone Encounter - Julieth [...] Hannah Ortiz - 01/13/2024 12:52 PM EDT Okie calling regarding the fentanyl patches. He states that he hasn't used them, but states that the other medication is helping with the pain. He has to take the medication before he gets out of beddue to the pain. Patient needs clarification on pain regimen. Hannah SAMANIEGO documented in this encounterTrihealth M[facility]06-[facility]-2024 Telephone encounter Note * Telephone Encounter - Hannah Ortiz - 01/13/2024 12:52 PM EDT Okie calling regarding the fentanyl patches. He states that he hasn't used them, but states that the other medication is helping with the pain. He has to take the medication before he gets out of beddue to the pain. Patient needs clarification on pain regimen. Hannah Snow ADM [facility]06-21-2024 Note* Addendum Note - Estella Fish APRN.CNP - 01/09/2024 2:09 PM EDTAddended by: ESTELLA FISH on: 01/09/2024 02:09 PM Modules accepted: Orders [facility]06-21-2024 Miscellaneous Notes* Addendum Note - Estella [...] he would like it sent to [facility] pharmacy. Let him know it may [...] RN * Telephone Encounter - Estella Fish APRN.HEALTH OFFICER - 01/09/2024 12:45 PM EDT Is he [...] Trazodone 50 mg tablets to his [facility] for insomnia. Let him know to [...] 11:47 AM * Telephone Encounter - Estella Fihs APRN.CNP - 01/09/2024 11:27 AM EDT We can try Trazodone 50 mg at bedtime. Sent to [facility] in [place] * Telephone Encounter - Bernadine Rodriguez RN - 01/09/2024 10:39 AM EDT Pt calls stating he's been having problems sleeping and would like something for this. States I'vetried it all when asked if he's tried melatonin, tylenol pm, or benadryl. Please advise Bernadine Rodriguez RN documented in this encounterTrihealth M[facility]06-21-2024 Note* Addendum Note - Julieth Tapia RN - 01/09/2024 1:20 PM EDTAddended by: JULIETH TAPIA on: 01/09/2024 01:20 PM Modules accepted: Orders [facility]06-21-2024 Telephone encounter Note* Telephone Encounter - [...] he would like it sent to [facility] pharmacy. Let him know it may [...] Please review and advise. Julieth Tapia RN [facility]06-21-2024 Telephone encounter Note* Telephone Encounter - [...] and not have end of dose pain [facility]06-21-2024 Telephone encounter Note* Telephone Encounter - [...] Trazodone 50 mg tablets to his [facility] for insomnia. Let him know to [...] Tapia RN January 09, 2024 11:47 AM [facility]06-21-2024 Telephone encounter Note* Telephone Encounter - Estella Fish APRN.CNP - 01/09/2024 11:27 AM EDT We can try Trazodone 50 mg at bedtime. Sent to [facility] in [place] [facility]06-21-2024 Telephone encounter Note* Telephone Encounter - Bernadine Rodriguez RN - 01/09/2024 10:39 AM EDT Pt calls stating he's been having problems sleeping and would like something for this. States I'vetried it all when asked if he's tried melatonin, tylenol pm, or benadryl. Please advise Bernadine Rodriguez RN T [facility] Work Phone: [phone] Telephone encounter Note* Telephone Encounter - Julieth [...] having contact numbers for the office and operations vocational instructor. Julieth Tapia RN December 26, 2023 3:06 PM [facility]06-07-2024 Miscellaneous Notes* Telephone Encounter - Julieth Tapia [...] having contact numbers for the office and operations vocational instructor. Julieth Tapia RN December 26, 2023 3:06 PM * Telephone Encounter - Yolande Bishop - 12/26/2023 1:21 PM EDT Cristal Gu is calling today regarding Insurance Authorization for oxycodone. Patient states thepharmacy also told him he needs something else but he could not remember. Patient has been identified by name and birthdate. Requesting response back: N/A, no action needed [phone] (cell) Yolande Bishop December 26, 2023 documented in this encounterTrihealth M[facility]06-07-2024 Miscellaneous Notes* Telephone Encounter - Julieth Tapia RN - 12/26/2023 2:29 PM EDT Prior Authorization Documentation Prior authorization requested for: MEDICATION Oxycodone IR 10 mg tablets Submitted via Cover My Meds/Diamond [id number] Insurance Company Name: [employer] [facility] Name: [facility] and Authorization approval #: AWAITING DETERMINATION Dates of Approval: from ? to ? Patient Assistance Needed: No Time Spent 10 Julieth Tapia RN December 26, 2023 documented in this encounterTrihealth M[facility]06-07-2024 Telephone encounter Note * Telephone Encounter - Julieth Tapia RN - 12/26/2023 2:29 PM EDT Prior Authorization Documentation Prior authorization requested for: MEDICATION Oxycodone IR 10 mg tablets Submitted via Cover My Meds/Diamond [id number] Insurance Company Name: [employer] [facility] Name: [facility] and Authorization approval #: AWAITING DETERMINATION Dates of Approval: from ? to ? Patient Assistance Needed: No Time Spent 10 Julieth Tapia RN December 26, 2023 [facility]06-07-2024 Telephone encounter Note* Telephone Encounter - Julieth Tapia RN - 12/26/2023 1:49 PM EDT Prior Authorization Documentation Prior authorization requested for: MEDICATION Pregablin 75 mcg capsules Submitted via Cover My Meds/Diamond [id number] Insurance Company Name: [employer] [facility] Name: [facility] and pproved today Your request has been approved Authorization Expiration Date: 12/26/2023- 07/20/2024. Pharmacy updated. Time Spent 10 Julieth Tapia RN December 26, 2023 [facility]06-07-2024 Miscellaneous Notes* Telephone Encounter - Julieth Tapia RN - 12/26/2023 1:49 PM EDT Prior Authorization Documentation Prior authorization requested for: MEDICATION Pregablin 75 mcg capsules Submitted via Cover My Meds/Diamond [id number] Insurance Company Name: [employer] [facility] Name: [facility] and pproved today Your request has been approved Authorization Expiration Date: 12/26/2023- 07/20/2024. Pharmacy updated. Time Spent 10 Julieth Tapia RN December 26, 2023 documented in this encounterTrihealth M[facility]06-[facility]-2024 Telephone encounter Note * Telephone Encounter - Yolande Bishop - 12/26/2023 1:21 PM EDT Cristal Gu is calling today regarding Insurance Authorization for oxycodone. Patient states thepharmacy also told him he needs something else but he could not remember. Patient has been identified by name and birthdate. Requesting response back: N/A, no action needed [phone] (cell) Yolande Bishop December 26, 2023 [facility]06-07-2024 Telephone encounter Note* Telephone Encounter - [...] and Oxy were sent to his [facility] pharmacy. Nurse encouraged patient to call with any questions/concerns/symptom related issues. Patient confirmed having contact numbers for the office and operations vocational instructor. [facility]06-07-2024 Miscellaneous Notes* Telephone Encounter - Julieth [...] and Oxy were sent to his [facility] pharmacy. Nurse encouraged patient to call with any questions/concerns/symptom related issues. Patient confirmed having contact numbers for the office and operations vocational instructor. * Addendum Note - Estella Fish APRN.RONAL - 12/26/2023 12:23 PM EDT Addended by: [...] were not included. Hector Limon MD You; Paul Chang Rad Nurse Pool4 minutes ago (10:41 AM) Consider reinitiating steroids. Radiation may have ongoing improvement with time. 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 * Telephone Encounter - Denita Rai RN - 12/26/2023 8:50 AM EDT JEROME: Please see Julieth's message below. Thank you! Denita Rai RN * Telephone Encounter - Julieth Tapia RN - 12/26/2023 8:19 AM EDT Care Coordination Triage Note [facility] Situation: Received page that patient called saying [...] 26, 2023 8:19 AM documented in this encounterTrihealth M[facility]06-07-2024 Note* Addendum Note - Estella Fish APRN.CNP - 12/26/2023 12:23 PM EDTAddended by: ESTELLA FISH on: 12/26/2023 12:23 PM Modules accepted: Orders [facility]06-07-2024 Telephone encounter Note* Telephone Encounter - [...] every 4 hours - Agree with Dex [facility]06-07-2024 Telephone encounter Note* Telephone Encounter - Denita Rai RN - 12/26/2023 11:00 AM EDT Pt notified, verbalizes understanding, and states that he has plenty of dex at home. Denita Rai RN [facility] Work Phone: [phone] Telephone encounter Note* Telephone Encounter - Denita Rai RN - 12/26/2023 10:59 AM EDT Images from the original note were not included. Hector Limon MD You5 minutes ago (10:53 AM) Yes seemed to work before. Thank.s [facility]06-07-2024 Telephone encounter Note* Telephone Encounter - Denita Rai RN - 12/26/2023 10:46 AM EDT Pt was originally on Dexamethasone 4 mg BID. Is this the dose you'd like him resume? Denita Rai RN [facility]06-07-2024 Telephone encounter Note* Telephone Encounter - Denita Rai RN - 12/26/2023 10:46 AM EDT Images from the original note were not included. Hector Limon MD You; Paul Solis Nurse Pool4 minutes ago (10:41 AM) Consider reinitiating steroids. Radiation may have ongoing improvement with time. 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 [facility]06-07-2024 Telephone encounter Note* Telephone Encounter - Denita Rai RN - 12/26/2023 8:50 AM EDT JEROME: Please see Julieth's message below. Thank you! Denita Rai RN [facility]06-07-2024 Telephone encounter Note* Telephone Encounter - Julieth Tapia RN - 12/26/2023 8:19 AM EDT Care Coordination Triage Note [facility] Situation: Received page that patient called saying [...] Tapia RN December 26, 2023 8:19 AM [facility]06-05-2024 Telephone encounter Note* Telephone Encounter - Denita Rai RN - 12/24/2023 2:03 PM EDT Pt notified of script. Denita Rai RN [facility] Work Phone: [phone] Miscellaneous Notes* Telephone Encounter - Denita Rai [...] advise. Denita Rai RN documented in this encounterTrihealth Mcc[facility] Telephone encounter Note * Telephone Encounter - Denita Rai RN - 12/24/2023 11:34 AM EDT Patient phones requesting refills as follows: Requested Prescriptions Pending Prescriptions Disp Refills levothyroxine (SYNTHROID) 75 mcg tablet 30 tablet 1 Sig: Take 1 tablet by mouth once daily. Please review and advise. Denita Rai RN [facility]06-05-2024 History of Present illness Narrative* Hector Limon MD - 12/24/2023 12:00 AM EDT [facility] Radiation Oncology Department RADIATION ONCOLOGY - COMPLETION NOTE PATIENT: CRISTAL GUDOB: 1955 DATES OF TREATMENT: 12/10/2023 to 12/24/2023 DIAGNOSIS: Lung cancer, left upper lobe, pleomorphic carcinoma, stage IIb [id number], stage IIB AJCC 8th edition (chest wall invasion), PD-L1 95%, KRAS G12C mutation present AREA TREATED: Right Oropharynx [place] DELIVERED DOSE: Area: Right Oropharynx with daily [...] , , , . documented in this encounterTrihealth Mcc[facility]06[facility] History of Present illness Narrative* Nina Grigsby MD - 12/22/2023 10:26 PM EDT PATIENT NAME: Cristal Gu DATE: 12/23/2023 PRIMARY CARE PHYSICIAN: Dr. Christina Azul OTHER PHYSICIANS: Dr. Verito Whelan, Dr. Marianne Fields, Dr. Damon Tse ([facility]) Christina Tavarez Portions of this [...] (HCC) Peripheral arterial disease (HCC) 2019 R CORRECTIONAL OFFICER LIEUTENANT stent PAST SURGICAL HISTORY: PAST SURGICAL HISTORY Procedure Laterality Date BACK SURGERY HX 2019 CABG (4) VEIN GRAFTS & ARTERIAL GRAFT(S) 2016 LOWER EXTREMITY PRESCHOOL ASSISTANT PRINCIPAL W/WO STENT Right 2019 right common femoral [...] involving face and upper back. PATHOLOGY: 10/21/2022 [id number] NGS analysis KRAS G12C mutation present, 5.2% [...] No hypermetabolic osseous lesions 01/03/2023 Chest CTA ([facility]) Bilateral hilar soft tissue nodules concerning for [...] as above. 04/12/2022 Bone scan ([facility]) Degenerative findings. No evidence of metastatic [...] uses Percocet as needed. Continue follow-up with [facility] palliative medicine. 7. Abnormal LFTs Labs [...] accordingly. Nina Grigsby MD documented in this encounterTrihealth Mcc[facility]06-[facility]-2024 [facility]Mer[facility]06-[facility] History of Present illness Narrative* Hector Limon [...] oriented x 3 appropriate, extremity strength intact form block maker strength good Radiation dermatitis: No IMAGING/LAB RESULTS: [...] discussed. Hector Limon MD documented in this encounterTrihealth [facility]05-[facility] Telephone encounter Note * Telephone Encounter [...] Tapia RN December 17, 2023 9:03 AM [facility]05-29-2024 Miscellaneous Notes* Telephone Encounter - Julieth [...] when he moves it gets up to 8//10 with activity. He will see if taking [...] 9:03 AM * Telephone Encounter - Rosibel WheelerSHUKRI - 12/16/2023 4:03 PM EDT Maren was [...] advise. Rosibel Wheeler RN documented in this encounterTrihealth Mcc[facility]05-28-2024 Telephone encounter Note * Telephone Encounter [...] pain returns. Please advise. Rosibel Wheeler RN [facility]05-28-2024 NoteMer[facility]05-28-[facility] History of Present illness Narrative* Hector Limon [...] oriented x 3 appropriate, extremity strength intact form block maker strength good Radiation dermatitis: No IMAGING/LAB RESULTS: None Treatment chart checked: Yes Patient treatment site reviewed and verified:Yes Port films reviewed and current:Yes Medications started: None ASSESSMENT/PLAN: Continue radiation. Continue follow-up with palliative for pain control. Will lower his Decadron from 4 mg twice daily to a dose of 4 mg daily. Hector Limon MD documented in this encounterTrihealth Mcc[facility]05-22-2024 NoteMer[facility]05-22-2024 History of Present illness Narrative* Hector Limon [...] prescribed. Hector Limon MD documented in this encounterTrihealth Mccull[facility]05-20-2024 NoteHNO ID: [id number] Author: Hector LIMON MD Service: ? Author Type: Physician Type: Progress Notes Filed: 12/08/2023 10:05 Note Text: [facility]05-20-2024 History of Present illness Narrative* Hector Limon MD - 12/08/2023 10:04 AM EDT sim documented in this encounterTrihealth M[facility]05-[facility]24 Telephone encounter Note * Telephone Encounter - Rosibel Wheeler LPN - 12/03/2023 12:21 PM EDT FYI--Pérez was seen in consult by Dr. Buchanan yesterday. He was to have a SIM for radiation therapy but was not able to lie flat for the [facility] due to pain in his left neck, shoulder, and upper chest. He is prescribed oxycodone IR 15mg si tablet every 4 hours prn. When he arrived yesterday he stated he took 2 tablets in the a.m. due to his pain and that it wasn't helping. 1300 oxycodone 15mg sig: take one tablet now per Dr. Limon. Patient states last dose of [id number] 2 tabs was at 0900. SIM was [...] contact Christina with [facility] if his pain medication is not effective. He said when he's at home resting his pain is controlled with what is prescribed. He said he is aware to call Christina if needed for medication adjustment and has her phone number. He is scheduled to start radiation therapy 12/10/23. Thanks Rosibel Wheeler RN [facility]05-15-2024 Miscellaneous Notes* Telephone Encounter - Rosibel [...] Dr. Limon. Patient states last dose of [id number] 2 tabs was at 0900. SIM was [...] contact Christina with [facility] if his pain medication is not effective. He said when he's at home resting his pain is controlled with what is prescribed. He said he is aware to call Christina if needed for medication adjustment and has her phone number. He is scheduled to start radiation therapy 12/10/23. Thanks Rosibel Wheeler RN documented in this encounterTrihealth Mcc[facility]05-15-2024 History of Present illness Narrative* Hector Limon MD - 12/03/2023 12:00 AM EDT CRISTAL GU [id number] 12/03/2023 [facility] Radiation Oncology Department SIMULATION NOTE DATE OF SIMULATION: 12/03/2023 THERAPIST: Sapna Severino MACHINE: [employer] mCT DIAGNOSIS: Malignant neoplasm of upper lobe, [...] / CDT 42:54 PM documented in this encounterTrihealth Mcc[facility]05-15-2024 History of Present illness Narrative* Hector Limon MD - 12/03/2023 12:00 AM EDT CRISTAL GU [id number] 12/03/2023 [facility] Department of Radiation Oncology Treatment Planning [...] and DVH. Electronically Signed Erasto Limon M.D. 2:46 PM documented in this encounterTrihealth Mcc[facility]05-15-2024 NoteMer[facility]05-15-2024 NoteMer[facility]05-14-2024 NoteMer[facility]05-14-2024 History of Present illness Narrative* Hector Limon MD - 12/02/2023 11:14 AM EDT Radiation Oncology - Follow Up Note PATIENT NAME: Cristal Gu PATIENT DIAGNOSIS: Lung cancer, left upper lobe, pleomorphic carcinoma, stage IIb [id number], stage IIB AJCC 8th edition (chest wall [...] left upper lobe, pleomorphic carcinoma, stage IIb [id number], stage IIB AJCC 8th edition (chest wall [...] Hector Limon MD cc: Christina Azul [address] [place] [address] documented in this encounterTrihealth Mcc[facility]05-13-2024 NoteMer[facility]05-13-2024 History of Present illness Narrative* Nina Grigsby MD - 12/01/2023 9:00 PM EDT PATIENT NAME: Cristal Gu DATE: 12/02/2023 PRIMARY CARE PHYSICIAN: Dr. Christina Azul OTHER PHYSICIANS: Dr. Verito Whelan, Dr. Marianne Fields, Dr. Damon Tse ([facility]) Dr. Limon, Christina Fish Portions [...] (HCC) Peripheral arterial disease (HCC) 2019 R CORRECTIONAL OFFICER LIEUTENANT stent PAST SURGICAL HISTORY: PAST SURGICAL HISTORY Procedure Laterality Date BACK SURGERY HX 2019 CABG (4) VEIN GRAFTS & ARTERIAL GRAFT(S) 2016 LOWER EXTREMITY PRESCHOOL ASSISTANT PRINCIPAL W/WO STENT Right 2019 right common femoral [...] involving face and upper back. PATHOLOGY: 10/21/2022 [id number] NGS analysis KRAS G12C mutation present, 5.2% [...] No hypermetabolic osseous lesions 01/03/2023 Chest CTA ([facility]) Bilateral hilar soft tissue nodules concerning for [...] as above. 04/12/2022 Bone scan ([facility]) Degenerative findings. No evidence of metastatic [...] +/- immunotherapy. He will also follow-up with [facility] palliative medicine to discuss more aggressive pain medications. 2. Carcinoma of the right tonsil Baseline PET and CT neck revealed suspicious abnormalities in the right tonsil. The patient was initially seen by [facility] on 07/26/2021, and clinical evaluation was most consistent with inflammatory/post-infectious findings. The patient was advised to stop chewing tobacco and continue close observation. Follow-up PET 05/12/2023 revealed significant increased size and metabolism of the right tonsillar mass. The patient was reevaluated by [facility] May 2023 and it was [...] uses Percocet as needed. Continue follow-up with [facility] palliative medicine. 7. Abnormal LFTs Labs [...] accordingly. Nina Grigsby MD documented in this encounterTrihealth Mcc[facility]05-07-2024 NoteMer[facility]05-07-2024 History of Present illness Narrative* Deborah Warner RN - 11/25/2023 11:05 AM EDT Pt here for PET scan. States has not been eating or drinking much doesn't have an appetite and feels weak. Denies N/V/D. Dr. Grigsby aware and Whitney Ria RNCC updated. New orders for 1 L NS over 1 hr. Pt states understanding with POC. Deborah Warner RN documented in this encounterTrihealth Mccull[facility]05-07-2024 History of Present illness Narrative* Olga Lidia Rosas RN - 11/25/2023 11:00 AM EDTSummary: [id number] [id number] Informed Consent CASE [id number] ([id number]): Tissue and Body Fluid Analysis from Patients with Cancer and Other Risk- Associated Lesions Patient seen in clinic for informed consent of the above mentioned protocol. Patient agrees to participate in the above mentioned research study. The patient has signed a copy of the informed consent. Patient has contact information for the study team and Dr. Nina Grigbsy M.D. See consent note in Epic. Olga Lidia Rosas, MSN, RN Clinical Research Nurse documented in this encounterTrihealth Mccull[facility]05-07-2024 NoteMer[facility]05-07-2024 History of Present illness Narrative* Deborah Warner RN - 11/25/2023 10:45 AM EDT Radiology Service Progress Note DATE OF SERVICE: November 25, 2023 TIME: 10:54 AM PATIENT WEIGHT: 52 kg PATIENT IDENTITY VERIFICATION COMPLETED USING TWO (2) STANDARD IDENTIFIERS: Name and Date of confirmed by patient verbally. FALL SCREENING: Has the patient had 2 falls in the last year or 1 fall with injury or currently using an Ambulatory Assistive Device (Walker, Cane, Wheelchair, Crutches, etc.)? No PATIENT GENDER DATA: Male ALLERGIES: Reviewed and unchanged CONTRAST ALLERGY: No EXAM: CT -CONTRAST INDUCED NEPHROPATHY RISK FACTORS: Patient age > 60 years CREATININE: Creatinine Date Value Ref Range Status 11/04/2023 1.23 (H) 0.73 - 1.22 mg/dL Final 10/20/2023 1.28 (H) 0.73 - 1.22 mg/dL Final 09/22/2023 1.38 (H) 0.73 - 1.22 mg/dL Final Estimated Glomerular Filtration Rate Date Value Ref Range Status 11/04/2023 65 >=60 mL/min/1.73m Final Comment: Estimated Glomerular Filtration [...] 07/03/2021 >60 mL/min/1.73 m2 Final P.O.C.T. RESULTS: POC done: Yes, See Lab Tab November 25, 2023 TREATMENT: N/A IV SITE: Ambulatory: A peripheral IV was started in the Right forearm with a Angio cath: 22 gauge. IV SITE APPEARANCE: Clean,Dry and Intact SIGNATURE: Deborah Warner RN PATIENT NAME: Cristal Gu DATE: November 25, 2023 TIME: 10:54 AM * Denita Yang, RT(R) - 11/25/2023 10:45 AM EDT RADIOLOGY SERVICE PROGRESS NOTE SERVICE DATE: 11/25/2023 SERVICE TIME: 11:04 AM PATIENT IDENTITY VERIFICATION COMPLETED USING TWO (2) STANDARD IDENTIFIERS: Name and Date of confirmed by patient verbally POST EXAM PIV STATUS: Discontinued PROCEDURE TYPE: NM INJECT: PET/CT BODY SCAN. 6.6 mCi F18 FDG. No other medications given.. ADMINISTRATION TIME: 1058 PATIENT DISCHARGED TO: Ambulatory patient, left [place] department area. A Diagnostic radioactive procedure has taken place, with no further precautions necessary other than routine body substance precautions. More information regarding radiation safety can be found usingthis link: [email or web address] SIGNATURE: IGGY Vizcaino) PATIENT NAME: Cristal Gu DATE: November 25, 2023 TIME: 11:04 AM PAGER/CONTACT #: documented in this encounterTrihealth [facility]05-07-2024 NoteMer[facility]05-07-2024 NoteMer[facility]05-06-2024 Telephone encounter Note* Telephone Encounter - Hannah Oglesby RN - 11/24/2023 9:47 AM EDT Please sign pended labs if agreeable-will draw with PET tomorrow. F/U with you 12/01 Thank You! Hannah Oglesby RN [facility]05-06-2024 Miscellaneous Notes* Telephone Encounter - Hannah Oglesby RN - 11/24/2023 9:47 AM EDT Please sign pended labs if agreeable-will draw with PET tomorrow. F/U with you 12/01 Thank You! Hannah Oglesby RN documented in this encounterTrihealth Mcc[facility]05-03-2024 Instructions* Patient Instructions* Estella Fish APRN.CNP - 11/21/2023 10:25 AM EDT Estella Fish CNP Department of Palliative and Supportive Care Palliative Care - Specialty services in symptom management and support For questions or prescription refills, call: [phone] Friday - Friday 9AM-5PM LASHAY Evans, RN - Construction Driller Please call 3-5 days in advance for medication refills Evenings, Weekends, Holidays: [phone] (ask for palliative medicine on-call provider) For appointments, cancellations or reschedule, call: [phone] documented in this encounterTrihealth Mccull[facility]05-03-2024 History of Present illness Narrative* Estella Fish [...] miles a day, 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 He has [...] helpful for pain and anxiety. Modified ESAS ([place] Symptom Assessment Scale) Information Provided By: Patient [...] ear normal. Nose: Nose normal. Mouth/Throat: Lips: [place]. Mouth: Mucous membranes are moist. No oral [...] was identified. 11/21/2023 by Estella Fish NP, SHEET METAL WORK FURNACE 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 Urine Screen Lab Results Component Value Date [...] 6-8 Weeks in person Estella Fish NP, OZZIE.RONAL November 21, 2023 9:44 AM This note may have been partially generated using the [employer] voice recognition system. While every effort was made to correct voice recognition errors, kindly be aware that some errors may occasionally occur. documented in this encounterTrihealth Mccull[facility]05-03-2024 NoteMer[facility]04-23-2024 Telephone encounter Note* Telephone Encounter - [...] his Pall Med appointment. Call transferred to [facility], for scheduling. Denita Rai RN [facility] Work Phone: [phone] Miscellaneous Notes* Telephone Encounter - Denita Rai [...] his Pall Med appointment. Call transferred to [facility], for scheduling. Denita Rai RN documented in this encounterTrihealth Mccullough-[facility]04-17-2024 Miscellaneous Notes* Telephone Encounter - Denita [...] message. Denita Rai RN documented in this encounterTrihealth Mccullough-[facility]04-16-2024 Miscellaneous Notes* Telephone Encounter - Maricruz [...] kidney function are stable. documented in this encounterTrihealth Mccullough-Hyde [facility] Hospital04-16-2024 NoteMer[facility]04-16-2024 History of Present illness Narrative* Dominique [...] diet such as recommendations from [employer] [place] [employer] focusing on lean proteins, whole grains, [...] learning: None Educational materials provided: [employer] [place] Plate, Heart Healthy Plate Anthropometrics: Height: Last [...] Dosing Weight: 56.3 kg Estimated kilocalorie needs: 3857-3848 kilocalories determined by 30-35 kcal/kg Estimated protein needs: 56-84 grams determined by 1.0-1.5 g/kg Dosing weight Estimated fluid needs: ~5221-2893 milliliters based on 1 mL per kcal [...] Murphy MS, RDN, LD documented in this encounterTrihealth Mccullough-[facility]04-15-2024 NoteMer[facility]04-15-2024 History of Present illness Narrative* Nina Grigsby MD - 11/03/2023 8:46 PM EDT PATIENT NAME: Cristal Gu DATE: 11/04/2023 PRIMARY CARE PHYSICIAN: Dr. Christina Azul OTHER PHYSICIANS: Dr. Verito Whelan, Dr. Marianne Fields, Dr. Damon Tse ([facility]) Dr. Limon, Christina Fihs Portions of this encounter note have been [...] (HCC) Peripheral arterial disease (HCC) 2019 R CORRECTIONAL OFFICER LIEUTENANT stent PAST SURGICAL HISTORY: PAST SURGICAL HISTORY Procedure Laterality Date BACK SURGERY HX 2019 CABG (4) VEIN GRAFTS & ARTERIAL GRAFT(S) 2016 LOWER EXTREMITY PRESCHOOL ASSISTANT PRINCIPAL W/WO STENT Right 2019 right common femoral [...] involving face and upper back. PATHOLOGY: 10/21/2022 [id number] NGS analysis KRAS G12C mutation present, 5.2% [...] No hypermetabolic osseous lesions 01/03/2023 Chest CTA ([facility]) Bilateral hilar soft tissue nodules concerning for [...] as above. 04/12/2022 Bone scan ([facility]) Degenerative findings. No evidence of metastatic [...] tonsil. The patient was initially seen by [facility] on 07/26/2021, and clinical evaluation was most consistent with inflammatory/post-infectious findings. The patient was advised to stop chewing tobacco and continue close observation. Follow-up PET 05/12/2023 revealed significant increased size and metabolism of the right tonsillar mass. The patient was reevaluated by [facility] May 2023 and it was [...] uses Percocet as needed. Continue follow-up with [facility] palliative medicine. 7. Abnormal LFTs Labs [...] accordingly. Nina Grigsby MD documented in this encounterTrihealth Mccull[facility]04-02-2024 History of Present illness Narrative* Hannah Oglesby RN - 10/21/2023 2:15 PM EDT Radiology Service Progress Note DATE OF SERVICE: October 21, 2023 TIME: 10:56 AM PATIENT WEIGHT: 125LBS PATIENT IDENTITY VERIFICATION COMPLETED USING TWO (2) STANDARD IDENTIFIERS: Name and Date of confirmed by patient verbally. FALL SCREENING: Has the patient had 2 falls in the last year or 1 fall with injury or currently using an Ambulatory Assistive Device (Walker, Cane, Wheelchair, Crutches, etc.)? No PATIENT GENDER DATA: Male ALLERGIES: Reviewed and unchanged CONTRAST ALLERGY: No EXAM: CT -CONTRAST INDUCED NEPHROPATHY RISK FACTORS: Patient age > 60 years CREATININE: Creatinine Date Value Ref Range Status 10/20/2023 1.28 (H) 0.73 - 1.22 mg/dL Final 09/22/2023 1.38 (H) 0.73 - 1.22 mg/dL Final 08/25/2023 1.19 0.73 - 1.22 mg/dL Final Estimated Glomerular Filtration Rate Date Value Ref Range Status 10/20/2023 62 >=60 mL/min/1.73m Final Comment: Estimated Glomerular Filtration [...] 07/03/2021 >60 mL/min/1.73 m2 Final P.O.C.T. RESULTS: POC done: Yes, See Lab Tab October 21, 2023 TREATMENT: N/A IV SITE: Ambulatory: A peripheral IV was started in the Right antecubital site with a Angio cath: 22 gauge. IV SITE APPEARANCE: Clean,Dry and Intact SIGNATURE: Hannah Oglesby RN PATIENT NAME: Cristal Gu DATE: October 21, 2023 TIME: 10:56 AM * Alethea Mckeon, RT(R) - 10/21/2023 2:15 PM EDT Radiology Service Progress Note PATIENT NAME: Cristal Gu DATE OF SERVICE: October 21, 2023 TIME: 11:24 AM PATIENT IDENTITY VERIFICATION COMPLETED USING TWO (2) IDENTIFIERS: Name and Date of confirmedby patient verbally. FALL SCREENING: Has the patient had 2 falls in the last year or 1 fall with injury or currently using an Ambulatory Assistive Device (Walker, Cane, Wheelchair, Crutches, etc.)? No PATIENT GENDER DATA: Male PATIENT RELEVANT IMPLANT DATA REVIEWED: Not Applicable PATIENT PRESENTS WITH AN IMPLANTABLE OR ATTACHED SHEET METAL FOREMAN: No RADIOLOGY DEPARTMENT: CT; Exam(s) Completed: Chest PERIPHERAL IV DATA: Site assessment: Clean,Dry and Intact, Site disposition Discontinued 22g right ac SIGNED BY: RT Tavo(R) October 21, 2023 11:24 AM documented in this encounterTrihealth Mcc[facility]04-02-2024 NoteMer[facility]04-02-2024 NoteMer[facility]04-02-2024 Miscellaneous Notes * Telephone Encounter - Estella Fish APRN.HEALTH OFFICER - 10/21/2023 1:22 PM EDT Needs a [...] have left at home documented in this encounterTrihealth Mccull[facility]04-01-2024 NoteMer[facility]04-01-2024 History of Present illness Narrative* Nina Grigsby MD - 10/20/2023 5:22 AM EDT PATIENT NAME: Cristal Gu DATE: 10/20/2023 PRIMARY CARE PHYSICIAN: Dr. Christina Azul OTHER PHYSICIANS: Dr. Verito Whelan, Dr. Marianne Fields, Dr. Damon Tse ([facility]) Christina Tavarez Portions of this [...] (HCC) Peripheral arterial disease (HCC) 2019 R CORRECTIONAL OFFICER LIEUTENANT stent PAST SURGICAL HISTORY: PAST SURGICAL HISTORY Procedure Laterality Date BACK SURGERY HX 2019 CABG (4) VEIN GRAFTS & ARTERIAL GRAFT(S) 2016 LOWER EXTREMITY PRESCHOOL ASSISTANT PRINCIPAL W/WO STENT Right 2019 right common femoral [...] involving face and upper back. PATHOLOGY: 10/21/2022 [id number] NGS analysis KRAS G12C mutation present, 5.2% [...] No hypermetabolic osseous lesions 01/03/2023 Chest CTA ([facility]) Bilateral hilar soft tissue nodules concerning for [...] as above. 04/12/2022 Bone scan ([facility]) Degenerative findings. No evidence of metastatic [...] tonsil. The patient was initially seen by [facility] on 07/26/2021, and clinical evaluation was most consistent with inflammatory/post-infectious findings. The patient was advised to stop chewing tobacco and continue close observation. Follow-up PET 05/12/2023 revealed significant increased size and metabolism of the right tonsillar mass. The patient was reevaluated by [facility] May 2023 and it was [...] uses Percocet as needed. Continue follow-up with [facility] palliative medicine. 7. Abnormal LFTs Labs [...] accordingly. Nina Grigsby MD documented in this encounterTrihealth Mcc[facility]03-04-2024 NoteMer[facility]03-04-2024 History of Present illness Narrative* Dominique Murphy RD - 09/22/2023 10:07 AM EST Oncology Nutrition Therapy Reassessment Patient left after office visit with physician and did not stay for scheduled dietitian appointment. Signed by: Dominique Murphy MS, RDN, LD documented in this encounterTrihealth Mccull[facility]03-04-2024 NoteMer[facility]03-04-2024 History of Present illness Narrative* Nina Grigsby MD - 09/22/2023 5:35 AM EST PATIENT NAME: Cristal Gu DATE: 09/22/2023 PRIMARY CARE PHYSICIAN: Dr. Christina Azul OTHER PHYSICIANS: Dr. Verito Whelan, Dr. Marianne Fields, Dr. Damon Tse ([facility]) Dr. Limon, Christina Fish Portions [...] (HCC) Peripheral arterial disease (HCC) 2019 R CORRECTIONAL OFFICER LIEUTENANT stent PAST SURGICAL HISTORY: PAST SURGICAL HISTORY Procedure Laterality Date BACK SURGERY HX 2019 CABG (4) VEIN GRAFTS & ARTERIAL GRAFT(S) 2016 LOWER EXTREMITY PRESCHOOL ASSISTANT PRINCIPAL W/WO STENT Right 2019 right common femoral [...] involving face and upper back. PATHOLOGY: 10/21/2022 [id number] NGS analysis KRAS G12C mutation present, 5.2% [...] No hypermetabolic osseous lesions 01/03/2023 Chest CTA ([facility]) Bilateral hilar soft tissue nodules concerning for [...] as above. 04/12/2022 Bone scan ([facility]) Degenerative findings. No evidence of metastatic [...] tonsillar mass. The patient was reevaluated by [facility] May 2023 and it was [...] 2015. 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 Currently stable. Continue management per PCP/cardiology. [...] uses Percocet as needed. Continue follow-up with [facility] palliative medicine. 7. Abnormal LFTs Labs [...] wellbeing. Nina Grigsby MD documented in this encounterTrihealth Mccull[facility]02-26-2024 NoteMer[facility]02-07-2024 Miscellaneous Notes* Telephone Encounter - Patricia [...] a new prescription be sent to [facility] in [place]. WILIAM/Patricia: script pended. Denita Rai RN * [...] TFTs on return visit. documented in this encounterTrihealth Mccull[facility]02-05-2024 NoteMer[facility]02-05-2024 History of Present illness Narrative* Nina Grigsby MD - 08/25/2023 6:17 AM EST PATIENT NAME: Cristal Gu DATE: 08/25/2023 PRIMARY CARE PHYSICIAN: Dr. Christina Azul OTHER PHYSICIANS: Dr. Verito Whelan, Dr. Marianne Fields, Dr. Damon Paynes ([facility]) Dr. 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 With recent antibiotics his skin lesions [...] (HCC) Peripheral arterial disease (HCC) 2019 R CORRECTIONAL OFFICER LIEUTENANT stent PAST SURGICAL HISTORY: PAST SURGICAL HISTORY Procedure Laterality Date BACK SURGERY HX 2019 CABG (4) VEIN GRAFTS & ARTERIAL GRAFT(S) 2016 LOWER EXTREMITY PRESCHOOL ASSISTANT PRINCIPAL W/WO STENT Right 2019 right common femoral [...] involving face and upper back. PATHOLOGY: 10/21/2022 [id number] NGS analysis KRAS G12C mutation present, 5.2% [...] No hypermetabolic osseous lesions 01/03/2023 Chest CTA ([facility]) Bilateral hilar soft tissue nodules concerning for [...] as above. 04/12/2022 Bone scan ([facility]) Degenerative findings. No evidence of metastatic [...] tonsil. The patient was initially seen by [facility] on 07/26/2021, and clinical evaluation [...] accordingly. Nina Grigsby MD documented in this encounterTrihealth Mccull[facility]01-26-2024 NoteMer[facility]01-19-2024 NoteHNO ID: [id number] Author: ESTELLA FISH APRN.HEALTH OFFICER Service: ? Author Type: Nurse Practitioner Type: Progress Notes Filed: 08/08/2023 13:54 Note Text: No showMercy Health Fairfield Hospital01-08-2024 NoteMer[facility] 06-30-2023 NoteMer[facility]12-11-2023 History of Present illness Narrative* Nina Grigsby MD - 06/30/2023 7:59 AM EST PATIENT NAME: Cristal Gu DATE: 06/30/2023 PRIMARY CARE PHYSICIAN: Dr. Christina Azul OTHER PHYSICIANS: Dr. Vertio Whelan, Dr. Marianne Fields, Dr. Damon Paynes ([facility]) Dr. Limon Portions of this encounter note have been copied from the note from 06/02/2023 and has been updatedwhere appropriate, and reflect my current medical decision making from today. CC: This is a 68 year old male with metastatic lung cancer, seen for scheduled follow-up and continued treatment. INTERIM HISTORY: Since the patient's last visit here he was reevaluated by [facility] on 05/27/2023. Itwas felt the right [...] no significant medical changes. He remains in [facility] for his metastatic lung cancer, and is tolerating the medication well. [facility] his left chest wallpain has resolved and [...] (HCC) Peripheral arterial disease (HCC) 2019 R CORRECTIONAL OFFICER LIEUTENANT stent PAST SURGICAL HISTORY: PAST SURGICAL HISTORY Procedure Laterality Date BACK SURGERY HX 2019 CABG (4) VEIN GRAFTS & ARTERIAL GRAFT(S) 2016 LOWER EXTREMITY PRESCHOOL ASSISTANT PRINCIPAL W/WO STENT Right 2019 right common femoral [...] involving face and upper back. PATHOLOGY: 10/21/2022 [id number] NGS analysis KRAS G12C mutation present, 5.2% [...] No hypermetabolic osseous lesions 01/03/2023 Chest CTA ([facility]) Bilateral hilar soft tissue nodules concerning for [...] as above. 04/12/2022 Bone scan ([facility]) Degenerative findings. No evidence of metastatic [...] tonsil. The patient was initially seen by [facility] on 07/26/2021, and clinical evaluation [...] accordingly. Nina Grigsby MD documented in this encounterTrihealth Mccull[facility]12-11-2023 NoteMer[facility]12-05-2023 NoteMer[facility]12-04-2023 NoteMer[facility]11-24-2023 Instructions* Patient Instructions* Estella Fish APRN.CNP - 06/13/2023 9:54 AM EST Estella Fish CNP Department of Palliative and Supportive Care Palliative Care - Specialty services in symptom management and support For questions or prescription refills, call: [phone] Friday - Friday 9AM-5PM LASHAY Evans, RN - Construction Driller Please call 3-5 days in advance for medication refills Evenings, Weekends, Holidays: [phone] (ask for palliative medicine on-call provider) For appointments, cancellations or reschedule, call: [phone] documented in this encounterTrihealth Mccull[facility]11-24-2023 History of Present illness Narrative* Estella [...] has improved anxiety and sleep. Modified ESAS ([place] Symptom Assessment Scale) Information Provided By: Patient [...] Nose: Nose normal. No rhinorrhea. Mouth/Throat: Lips: Velarde. Mouth: Mucous membranes are moist. No oral [...] No suspiciousactivity was identified. 06/13/2023 by Estella Fish, BARK TANNER, SHEET METAL WORK FURNACE 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 Assessment & Plan (Z51.5) Palliative care by specialist (primary encounter diagnosis) - Reviewed philosophy of palliative medicine - Discussed services offered by Pall Med - Provided support -Discussed services offered by palliative medicine and how to contact us (Q39.73) Primary malignant neoplasm of left lung metastatic [...] 6-8 Weeks in person Estella Fish NP, SHEET METAL WORK FURNACE 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 June 13, 2023 7:43 AM I spent a total of 35 minutes on the date of the service which included preparing to see the patient, [id number] patient care, completing clinical documentation, obtaining and/or reviewing separately obtained history, performing a medically appropriate examination, counseling and educating the pat ient/family/caregiver, ordering medications, tests, or procedures, communicating with other HCPs (not separately reported), and independently interpreting results (not separately reported). This note may have been partially generated using the [employer] voice recognition system. While every effort was made to correct voice recognition errors, kindly be aware that some errors may occasionally occur. documented in this encounterTrihealth Mccullough-[facility]11-24-2023 NoteMer[facility]11-21-2023 History of Present illness Narrative* Hector Limon MD - 06/10/2023 12:00 AM EST CRISTAL GU [id number] 06/10/2023 [facility] Radiation Oncology Department SIMULATION NOTE DATE OF SIMULATION: 06/10/2023 THERAPIST: Sapna Severino MACHINE: TargetX DIAGNOSIS: C10 Malignant neoplasm of oropharynx AREA: [...] / CDT 2:50 PM documented in this encounterTrihealth Mccullough-[facility]11-21-2023 History of Present illness Narrative* Hector Limon MD - 06/10/2023 12:00 AM EST CRISTAL GU [id number] 06/10/2023 [facility] Department of Radiation Oncology Treatment Planning [...] Limon M.D. 1:41 AM documented in this encounterTrihealth Mccull[facility] Hospital11-21-2023 NoteMer[facility]11-21-2023 NoteMer[facility]11-14-2023 Miscellaneous Notes * Telephone Encounter - Pavithra aJcinto MA - 06/03/2023 3:39 PM EST Opened for refill, refills not needed at this time. Pavithra Jacinto MA documented in this encounterTrihealth Mccullough-[facility]11-13-2023 NoteMer[facility]11-13-2023 History of Present illness Narrative* Patricia [...] (HCC) Peripheral arterial disease (HCC) 2019 R CORRECTIONAL OFFICER LIEUTENANT stent PAST SURGICAL HISTORY: PAST SURGICAL HISTORY Procedure Laterality Date BACK SURGERY HX 2019 CABG (4) VEIN GRAFTS & ARTERIAL GRAFT(S) 2016 LOWER EXTREMITY PRESCHOOL ASSISTANT PRINCIPAL W/WO STENT Right 2019 right common femoral [...] involving face and upper back. PATHOLOGY: 10/21/2022 [id number] NGS analysis KRAS G12C mutation present, 5.2% [...] No hypermetabolic osseous lesions 01/03/2023 Chest CTA ([facility]) Bilateral hilar soft tissue nodules concerning for [...] as above. 04/12/2022 Bone scan ([facility]) Degenerative findings. No evidence of metastatic [...] neck CT. The patient was seen by [facility] on 07/26/2021, and clinical evaluation most consistent with inflammatory/post-infectious findings. No suspicion for malignancy. The patient apparently chewed tobacco, and was advised to discontinue. Follow-up PET scan 05/12/2023 revealed significant increased size and metabolism of the right tonsillar mass. We will refer to [facility] for evaluation, most likely to [...] monitor TFTs and adjust Synthroid dosage accordingly. Patrciia Miller APRN.RONAL I spent a total of 30 minutes on the date of the service which included preparing to see the patient, [id number] patient care, completing clinical documentation, obtaining and/or reviewing separately obtained history, performing a medically appropriate examination, counseling and educating the pat ient/family/caregiver, ordering medications, tests, or procedures, independently interpreting results (not separately reported), and communicating results to the patient/family/caregiver. documented in this encounterTrihealth Mccull[facility]11-10-2023 NoteMer[facility]11-10-2023 History of Present illness Narrative* Hector Limon MD - 05/30/2023 11:16 AM EST Radiation Oncology - Follow Up Note PATIENT NAME: Cristal Gu PATIENT DIAGNOSIS: Lung cancer, left upper lobe, pleomorphic carcinoma, stage IIb [id number], stage IIB AJCC 8th edition (chest wall [...] left upper lobe, pleomorphic carcinoma, stage IIb [id number], stage IIB AJCC 8th edition (chest wall [...] by: Hector Limon MD cc: Christina Azul [address] [place] [address] [place] [address] documented in this encounterTrihealth Mccullough-[facility]11-07-2023 NoteMer[facility]11-07-2023 History of Present illness Narrative* Damon [...] aryepiglottic folds, pyriform sinuses, and lateral pharyngeal noalsco. True vocal cord movement was intact bilaterally. [...] ACTIVE PROBLEM LIST Coronary Artery Disease Involving [place] Coronary Artery of [place] Heart Without Angina Pectoris Centrilobular Emphysema (Hcc) [...] of SERVICE: 1:41 PM documented in this encounterTrihealth Mccullough-[facility]11-07-2023 Nurse Note* Radha Hunter CT - 05/27/2023 1:31 PM EST Tobacco Use: 2 packs/day, for 50 years. Types: Cigarettes Was smoking cessation packet given? Patient Declined Was a referral initiated?Patient declined. documented in this encounterTrihealth Mccullough-[facility]10-31-2023 Miscellaneous Notes* Telephone Encounter - Denita Rai RN - 05/20/2023 1:49 PM EDT Patient started/will start taking Sotorasib on 05/14/23. Denita Rai RN documented in this encounterTrihealth Mccullough-[facility]10-31-2023 Miscellaneous Notes* Telephone Encounter - Denita [...] comply. Denita Rai RN documented in this encounterTrihealth Mccullough-[facility]10-31-2023 History of Present illness Narrative* Denita aRi RN - 05/20/2023 1:29 PM EDT ORAL [...] needed. Denita Rai RN documented in this encounterTrihealth Mccullough-[facility] Hospital10-31-2023 NoteMer[facility]10-30-2023 Miscellaneous Notes* Telephone Encounter - Denita [...] then? Denita Rai RN documented in this encounterTrihealth Mccullough-[facility]10-27-2023 Instructions* Patient Instructions* Estella Fish APRN.RONAL - 05/16/2023 9:13 AM EDT Estella Fish CNP Department of Palliative and Supportive Care Palliative Care - Specialty services in symptom management and support For questions or prescription refills, call: [phone] Friday - Friday 9AM-5PM LASHAY Evans, RN - Construction Driller Please call 3-5 days in advance for medication refills Evenings, Weekends, Holidays: [phone] (ask for palliative medicine on-call provider) For appointments, cancellations or reschedule, call: [phone] documented in this encounterTrihealth Mccullough-[facility] Hospital10-27-2023 NoteMer[facility]10-27-2023 History of Present illness Narrative* Estella [...] or sertraline, not sure why. Modified ESAS ([place] Symptom Assessment Scale) Information Provided By: Patient [...] ear normal. Nose: Nose normal. Mouth/Throat: Lips: Velarde. Mouth: Mucous membranes are moist. No oral [...] suspiciousactivity was identified. 05/16/2023 by Estella Fish BARK TANNER, SHEET METAL WORK FURNACE 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 Urine Screen Lab Results Component Value Date UAMPH Negative 09/26/2021 UBARB2 Negative 09/26/2021 UBENZ Negative 09/26/2021 UCOC2 Negative 09/26/2021 UOPI Negative 09/26/2021 UOXYC Negative 09/26/2021 UPCP Negative 09/26/2021 UTHC Negative 09/26/2021 UETOH <11 09/26/2021 Assessment & Plan (Z51.5) Palliative care by specialist (primary encounter diagnosis) - Reviewed philosophy of palliative medicine - Discussed services offered by [facility] - Provided support -Discussed services offered by palliative medicine and how to contact us (M16.92) Primary malignant neoplasm of left lung metastatic [...] which included preparing to see the patient, [id number] patient care, completing clinical documentation, obtaining and/or reviewing separately obtained history, performing a medically appropriate examination, counseling and educating the pat ient/family/caregiver, ordering medications, tests, or procedures, and independently interpreting results (not separately reported). Existence of Advance Directives: No - not interested Next Visit: 4 Weeks in person Estella Fish NP, SHEET METAL WORK FURNACE 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 May 16, 2023 8:56 AM This note may have been partially generated using the [employer] voice recognition system. While every effort was made to correct voice recognition errors, kindly be aware that some errors may occasionally occur. documented in this encounterTrihealth Mccullough-[facility]10-26-2023 Miscellaneous Notes* Telephone Encounter - Patricia [...] FYI.... Denita Rai RN documented in this encounterTrihealth Mccullough-Hyde [facility]10-26-2023 Miscellaneous Notes* Telephone Encounter - Patricia [...] full. Unable to leave a message. Denita aRi RN * Telephone Encounter - Denita Rai RN - 05/15/2023 12:20 PM EDT ----- Message from Nina Grigsby MD sent at 05/14/2023 5:28 PM EDT ----- Please inform the patient that his TSH is still high at 47. Recommend we increase the Synthroid to 75 mcg. Pauline Dennis documented in this encounterTrihealth Mccullough-Hy[facility] Hospital10-24-2023 Miscellaneous Notes* Telephone Encounter - Denita Rai RN - 05/13/2023 3:[address] Grigsby, treatment plan will be changing to Lumakras. Script sent to [facility] pharmacy. Denita Rai RN * Telephone Encounter - Analisa Stacy RPh - 05/13/2023 12:05 PM EDT Added future plan of pembrolizumab, carboplatin, and paclitaxel for after today's dose of pembrolizumab. (Was not certain if you were going to go ahead with today's dose or not.) Moe ChenD, BCOP Whitney: TAMIKOMoe HernandezD, BCOP documented in this encounterTrihealth Mccullough-Hyde [facility] Hospital10-24-2023 NoteMer[facility]10-23-2023 NoteMercy [facility]10-23-2023 NoteMer[facility]10-19-2023 Miscellaneous Notes* Telephone Encounter - Denita [...] for 4 days. Authorizing Provider: PATRICIA MILLER APRN.RONAL * [...] agree. Denita Rai RN documented in this encounterTrihealth Mccullough-Hyde [facility]10-16-2023 Miscellaneous Notes* Telephone Encounter - Analisa Stacy RPh - 05/05/2023 3:58 PM EDT Next appt and labs 05/13/23. Jose Stacy, MoeD, BCOP documented in this encounterTrihealth Mccullough-[facility]10-04-2023 Miscellaneous Notes* Telephone Encounter - Patricia [...] pended. Denita Rai RN documented in this encounterTrihealth Mccullough-Hyde [facility] Hospital10-03-2023 [facility]09-19-2023 Miscellaneous Notes* Telephone Encounter - Denita [...] objections? Denita Rai RN documented in this encounterTrihealth Mccullough-Hyde [facility] Hospital09-12-2023 [facility]09-12-2023 History of Present illness Narrative* Ania Peters RN - 04/01/2023 1:36 PM EDT Potassium 3.3 reviewed with Raimundo Miller CNP. She would like pt to get K 20 meq IV x1 dose today andwill send a script for oral K to his pharmacy. Pt and tx nurse informed. Ania Peters RN documented in this encounterTrihealth Mccullough-Hyde [facility] Hospital09-12-2023 NoteMer[facility]09-12-2023 Nurse Note* Yani Singer - 04/01/2023 12:51 PM EDT Patient states he has been coughing up a lot of stuff. Coughing up more blood then usual. documented in this encounterTrihealth Mccullough-Hyde [facility] Hospital09-12-2023 [place] [address]-12-2023 History of Present illness Narrative* Sher MillerOZZIE bell.HEALTH OFFICER - 04/01/2023 12:46 PM EDT PATIENT NAME: [...] (HCC) Peripheral arterial disease (HCC) 2019 R CORRECTIONAL OFFICER LIEUTENANT stent PAST SURGICAL HISTORY: PAST SURGICAL HISTORY Procedure Laterality Date BACK SURGERY HX 2019 CABG (4) VEIN GRAFTS & ARTERIAL GRAFT(S) 2016 LOWER EXTREMITY PRESCHOOL ASSISTANT PRINCIPAL W/WO STENT Right 2019 right common femoral [...] involving face and upper back. PATHOLOGY: 10/21/2022 [id number] NGS analysis KRAS G12C mutation present, 5.2% [...] No hypermetabolic osseous lesions 01/03/2023 Chest CTA ([facility]) Bilateral hilar soft tissue nodules concerning for [...] as above. 04/12/2022 Bone scan ([facility]) Degenerative findings. No evidence of metastatic [...] with moderate relief. Will consider referral to [facility] palliative medicine if symptoms persist. 7. [...] reaction versus viral syndrome. Improved. Patricia Miller APRN.CNP I spent a total of 30 minutes on the date of the service which included preparing to see the patient, [id number] patient care, completing clinical documentation, obtaining and/or reviewing separately obtained history, performing a medically appropriate examination, counseling and educating the pat ient/family/caregiver, ordering medications, tests, or procedures, independently interpreting results (not separately reported), and communicating results to the patient/family/caregiver. documented in this encounterTrihealth Mccullough-[facility]08-22-2023 History of Present illness Narrative* Nina [...] (HCC) Peripheral arterial disease (HCC) 2019 R CORRECTIONAL OFFICER LIEUTENANT stent PAST SURGICAL HISTORY: PAST SURGICAL HISTORY Procedure Laterality Date BACK SURGERY HX 2019 CABG (4) VEIN GRAFTS & ARTERIAL GRAFT(S) 2016 LOWER EXTREMITY PRESCHOOL ASSISTANT PRINCIPAL W/WO STENT Right 2019 right common femoral [...] involving face and upper back. PATHOLOGY: 10/21/2022 [id number] NGS analysis KRAS G12C mutation present, 5.2% [...] No hypermetabolic osseous lesions 01/03/2023 Chest CTA ([facility]) Bilateral hilar soft tissue nodules concerning for [...] as above. 04/12/2022 Bone scan ([facility]) Degenerative findings. No evidence of metastatic [...] with moderate relief. Will consider referral to [facility] palliative medicine if symptoms persist. 7. [...] worsen. Nina Grigsby MD documented in this encounterTrihealth Mccullough-Hy[facility]08-21-2023 Miscellaneous Notes* Telephone Encounter - Analisa Stacy RPh - 03/10/2023 11:05 AM EDT Instructed by pt to change pharmacy to [place], [place]. Jose Stacy, PharmD, BCOP * Telephone [...] authorize? Denita Rai RN documented in this encounterTrihealth Mccullough-Hyde [facility]08-16-2023 Miscellaneous Notes* Telephone Encounter - Denita [...] suggestions? Denita Rai RN documented in this encounterTrihealth Mccullough-Hy[facility]08-01-2023 Nurse Note* Pavithra Heart MA - 02/18/2023 2:39 PM EDT Patient hurt his back so he is having pain from that today. Pavithra Acuna MA documented in this encounterTrihealth Mccullough-[facility]08-01-2023 History of Present illness Narrative* Nina [...] (HCC) Peripheral arterial disease (HCC) 2019 R CORRECTIONAL OFFICER LIEUTENANT stent PAST SURGICAL HISTORY: PAST SURGICAL HISTORY Procedure Laterality Date BACK SURGERY HX 2019 CABG (4) VEIN GRAFTS & ARTERIAL GRAFT(S) 2016 LOWER EXTREMITY PRESCHOOL ASSISTANT PRINCIPAL W/WO STENT Right 2019 right common femoral [...] involving face and upper back. PATHOLOGY: 10/21/2022 [id number] NGS analysis KRAS G12C mutation present, 5.2% [...] No hypermetabolic osseous lesions 01/03/2023 Chest CTA ([facility]) Bilateral hilar soft tissue nodules concerning for [...] as above. 04/12/2022 Bone scan ([facility]) Degenerative findings. No evidence of metastatic [...] with moderate relief. Will consider referral to [facility] palliative medicine if symptoms persist. 7. [...] care. Nina Grigsby MD documented in this encounterTrihealth Mccullough-[facility]07-31-2023 Miscellaneous Notes* Telephone Encounter - Yani Singer - 02/17/2023 2:14 PM EDT Patient has an [facility]TV appointment on 02/18. Please place lab orders. Yani Singer documented in this encounterTrihealth Mccullough-[facility]07-20-2023 Miscellaneous Notes* Telephone Encounter - Vanessa Carl - 02/06/2023 2:11 PM EDT ER records scanned. * Telephone Encounter - Denita Rai RN - 02/06/2023 1:20 PM EDT FYI: Pt reports that he went to [facility] ER w/ a right ear ache. Diagnosed w/ an ear infection. Sent home on Amoxicillin 500 mg BID x 10 days and Ciprodex gtts BID x 7 days. Tomasa: Please scan pt's ER records from [facility]. Thanks! Denita Rai RN documented in this encounterTrihealth Mccull[facility]07-11-2023 History of Present illness Narrative* Hector Limon MD - 01/28/2023 3:15 PM EDT Radiation Oncology - Follow Up Note PATIENT NAME: Cristal Gu PATIENT DIAGNOSIS: Lung cancer, left upper lobe, pleomorphic carcinoma, stage IIb [id number], stage IIB AJCC 8th edition (chest wall [...] left upper lobe, pleomorphic carcinoma, stage IIb [id number], stage IIB AJCC 8th edition (chest wall invasion), PD-L1 95%, KRAS G12C mutation present Doing fairly well, and has had a good response to recent left supraventricular chest wall radiation. He continues active follow-up with Dr. Grigsby. We will plan to see patient back on an as-needed basis. Signed by: Hector Limon MD cc: Christina Azul [address] [place] [address] documented in this encounterTrihealth Mccullough-Hy[facility] Hospital06-26-2023 Miscellaneous Notes* Telephone Encounter - Denita [...] 7 days. Please review and advise. Denita Rai, RN documented in this encounterTrihealth Mccullough-Hy[facility] Hospital06-26-2023 Miscellaneous Notes* Telephone Encounter - Bernadine Escobar [...] 01/17/23. Rosibel Wheeler LPN documented in this encounterTrihealth Mccull[facility] Hospital06-22-2023 Miscellaneous Notes* Telephone Encounter - Vanessa Fam [facility] - 01/09/2023 4:03 PM EDT Records faxed to [facility] in [place] [phone]. documented in this encounterTrihealth Mccullough-Hyde [facility] Hospital06-21-2023 Miscellaneous Notes* Telephone Encounter - MARGARET Finnegan - 01/08/2023 2:49 PM EDT Social Work Problem Referral Note INFORMATION/REFERRAL : Cristal Gu 67 year old male was referred by Leonel Zhu to [facility] Social Work for the [...] tab: Yes SUMA Finnegan documented in this encounterTrihealth Mccullough-Hy[facility]06-20-2023 History of Present illness Narrative* Dominique Murphy RD - 01/07/2023 12:16 PM EDT Oncology [...] Written resources provided to patient. Contacted nurse all source collection manager and SW regarding patient's current condition [...] Dosing Weight: 57.4 kg Estimated kilocalorie needs: 5034-0042 kilocalories determined by 30-35 kcal/kg Estimated protein needs: 57-86 grams determined by 1.0-1.5 g/kg Dosing weight Estimated fluid needs: ~2025-4285 milliliters based on 1 mL per kcal [...] Murphy MS, RDN, LD documented in this encounterTrihealth Mccullough-Hyde [facility] Hospital06-20-2023 History of Present illness Narrative* Aurelia Bradley RN - 01/07/2023 11:17 AM EDT LFT's reviewed with dariana SANTANA to proceed with tx as written. Aurelia Bradley RN documented in this encounterTrihealth Mccull[facility]-Hy[facility]06-20-2023 Miscellaneous Notes* Telephone Encounter - Lisa Figueroa - 01/07/2023 10:20 AM EDT Disregard. Patient just showed and currently in office now. Lisa Figueroa * Telephone Encounter - Lisa Figueroa - 01/07/2023 10:08 AM EDT Patient did not show for RV and treatment this morning. Lisa Figueroa documented in this encounterTrihealth Mccullough-Hy[facility]06-19-2023 Miscellaneous Notes* Telephone Encounter - Yani Singer - 01/06/2023 11:43 AM EDT Patient has an OTV appointment on 01/06. Please place lab orders. Yani Singer documented in this encounterTrihealth Mccullough-Hy[facility] Hospital06-16-2023 Miscellaneous Notes* Telephone Encounter - Denita Rai RN - 01/03/2023 4:20 PM EDT Disposition: per Yusef, patient directed to: Emergency Room due to the issue being urgent. Pt confirms that he will be going to [facility] ER. Report phoned to Tea [facility] RN. Pt's last office note, copy of [...] concerns? Denita Rai RN documented in this encounterTrihealth Mccullough-Hy[facility] Hospital06-06-2023 Miscellaneous Notes* Telephone Encounter - Denita Rai RN - 12/24/2022 3:44 PM EDT Rosemarie from [facility] states that they received pt's MMW script, however, they are currently out of viscous lidocaine. Script will be filled at our pharmacy. Pt notified and verbalizes understanding. [facility] instructed to cancel the script. Denita Rai RN documented in this encounterTrihealth Mccullough-[facility] Hospital06-06-2023 Miscellaneous Notes* Telephone Encounter - Denita Rai RN - 12/24/2022 3:07 PM EDT MMW script faxed to [facility] @ [phone]. Denita Rai RN * Telephone Encounter - Patricia Miller APRN.HEALTH OFFICER - 12/24/2022 2:22 PM EDT The following [...] Swish and Swallow Authorizing Provider: PATRICIA MILLER APRN.HEALTH OFFICER * Telephone Encounter - Denita Rai RN [...] pt? Denita Rai RN documented in this encounterTrihealth Mccull[facility]05-30-2023 History of Present illness Narrative* Ania [...] understanding. Aurelia Bradley RN documented in this encounterTrihealth Mccullough-[facility]05-30-2023 History of Present illness Narrative* Nina [...] (HCC) Peripheral arterial disease (HCC) 2019 R CORRECTIONAL OFFICER LIEUTENANT stent PAST SURGICAL HISTORY: PAST SURGICAL HISTORY Procedure Laterality Date BACK SURGERY HX 2019 CABG (4) VEIN GRAFTS & ARTERIAL GRAFT(S) 2016 LOWER EXTREMITY PRESCHOOL ASSISTANT PRINCIPAL W/WO STENT Right 2019 right common femoral [...] involving face and upper back. PATHOLOGY: 10/21/2022 [id number] NGS analysis KRAS G12C mutation present, 5.2% [...] as above. 04/12/2022 Bone scan ([facility]) Degenerative findings. No evidence of metastatic [...] cancer. Nina Grigsby MD documented in this encounterTrihealth Mccullough-Hy[facility]05-08-2023 Nurse Note* Ebony Marcelo Ma - 11/25/2022 10:09 AM EDT Clinical questionnaires incomplete due to not loading. Ebony Marcelo Ma documented in this encounterTrihealth Mccullough-[facility]05-08-2023 History of Present illness Narrative* Patricia Miller APRN.CNP - 11/25/2022 9:30 AM EDT PATIENT NAME: [...] (HCC) Peripheral arterial disease (HCC) 2019 R CORRECTIONAL OFFICER LIEUTENANT stent PAST SURGICAL HISTORY: PAST SURGICAL HISTORY Procedure Laterality Date BACK SURGERY HX 2019 CABG (4) VEIN GRAFTS & ARTERIAL GRAFT(S) 2016 LOWER EXTREMITY PRESCHOOL ASSISTANT PRINCIPAL W/WO STENT Right 2019 right common femoral [...] involving face and upper back. PATHOLOGY: 10/21/2022 [id number] NGS analysis KRAS G12C mutation present, 5.2% [...] as above. 04/12/2022 Bone scan ([facility]) Degenerative findings. No evidence of metastatic [...] neck CT. [facility], and clinical evaluation most consistent with inflammatory/post-infectious findings. No suspicion for malignancy. The patient apparently chews tobacco, and was advised to discontinue.He will follow- up with ENT as indicated. 6. Cancer related pain Severe pain left upper chest wall since August 2022. Currently on Percocet and gabapentin with moderate relief. Will consider referral to [facility] palliative medicine if symptoms persist. 7. [...] which included preparing to see the patient, [id number] patient care, completing clinical documentation, obtaining and/or reviewing separately obtained history, performing a medically appropriate examination, counseling and educating the pat ient/family/caregiver, ordering medications, tests, or procedures, independently interpreting results (not separately reported), and communicating results to the patient/family/caregiver. documented in this encounterTrihealth Mccullough-[facility]05-04-2023 Miscellaneous Notes* Telephone Encounter - Ebony Marcelo Ma - 11/21/2022 11:[address] lab orders for appointment on 11/25/22. Ebony Marcelo Ma documented in this encounterTrihealth Mccull[facility]05-03-2023 Miscellaneous Notes* Telephone Encounter - Dominique [...] ensure a day and has met with fur cutting machine operator before. We discussed the possibility of adding an antidepressant. Pt is concerned about his LFTs and he does not want to take anything that could effect those. Is there something you can prescribe that may increase appetite & help depression while not altering his liver function? Pt uses [facility] in [place] if you want to send something. I will also copy fur cutting machine operator and social work to be aware of changes/issues with patient. Merissa Fam RN documented in this encounterTrihealth Mccullough-[facility]05-03-2023 History of Present illness Narrative* Hector Limon MD - 11/20/2022 10:29 AM EDT Radiation Oncology - Follow Up Note PATIENT NAME: Cristal Gu PATIENT DIAGNOSIS: Lung cancer, left upper lobe, pleomorphic carcinoma, stage IIb [id number], stage IIB AJCC 8th edition (chest wall [...] left upper lobe, pleomorphic carcinoma, stage IIb [id number], stage IIB AJCC 8th edition (chest wall invasion), PD-L1 95%, KRAS G12C mutation present Doing fairly well, with good intial response to palliative radiation. He continues pembrolizumab thorkailash Grigsby. Plan to see back in 4-6 weeks. Signed by: Hector Limon MD cc: Christina Azul [address] [place] [address] documented in this encounterTrihealth Mccullough-Hyde [facility]05-01-2023 History of Present illness Narrative* Nina [...] (HCC) Peripheral arterial disease (HCC) 2019 R CORRECTIONAL OFFICER LIEUTENANT stent PAST SURGICAL HISTORY: PAST SURGICAL HISTORY Procedure Laterality Date BACK SURGERY HX 2019 CABG (4) VEIN GRAFTS & ARTERIAL GRAFT(S) 2016 LOWER EXTREMITY PRESCHOOL ASSISTANT PRINCIPAL W/WO STENT Right 2019 right common femoral [...] involving face and upper back. PATHOLOGY: 10/21/2022 [id number] NGS analysis KRAS G12C mutation present, 5.2% [...] as above. 04/12/2022 Bone scan ([facility]) Degenerative findings. No evidence of metastatic [...] with moderate relief. Will consider referral to [facility] palliative medicine if symptoms persist. 7. Abnormal LFTs Labs from 11/11/2022 revealed significant elevation of the SGOT and SGPT, most likely transaminitis secondary to immunotherapy versus supplements (fenbendazole and curcumin). The patient was advised to discontinue all supplements, and avoid other agents which might contribute to liver dysfunction. Repeat labs and return visit in 1 week. Nina Grigsby MD documented in this encounterTrihealth Mccull[facility]04-27-2023 Miscellaneous Notes* Telephone Encounter - Yani Singer - 11/14/2022 9:16 AM EDT Patient has an OTV appointment on 11/18. Please place lab orders. Yani Singer documented in this encounterTrihealth Mccull[facility]04-25-2023 History of Present illness Narrative* Hector Limon MD - 11/12/2022 12:00 AM EDT [facility] Radiation Oncology Department RADIATION ONCOLOGY - COMPLETION NOTE PATIENT: CRISTAL GUDOB: 1955 DATES OF TREATMENT: 10/28/2022- 11/12/2022 DIAGNOSIS: Lung cancer, left upper lobe, pleomorphic carcinoma, stage IIb [id number], stage IIB AJCC 8th edition (chest wall [...] / WST 0:33 AM documented in this encounterTrihealth Mccullough-[facility] Hospital04-24-2023 History of Present illness Narrative* Rita [...] time. Rita Hurst RN documented in this encounterTrihealth Mccullough-[facility] Hospital04-24-2023 Miscellaneous Notes* Telephone Encounter - Merissa Rodríguez (Carriage Operator) - 11/11/2022 3:10 PM EDT Ambulatory Pharmacy Prior Authorization Note Provider Intervention Required?: No- Pharmacy completed on your behalf. Rx Plan: Drug: Oxycodone-Acetaminophen 5/325 Cover My Meds Diamond: [id number] Determination: Approved Prior Authorization/Case #: [id number] Prior Authorization Expiration: 07/10/2023 Time to PA Submission in CMM: 15 min Time to PA Determination in CMM: Same day Additional Information: For questions relating to this submission, please contact [facility] at [phone] documented in this encounterTrihealth Mccullough-[facility]04-24-2023 Miscellaneous Notes* Telephone Encounter - Merissa aFm RN - 11/11/2022 12:51 PM EDT Please sign if agreeable. Merissa Fam RN documented in this encounterTrihealth Mccullough-Hyde [facility] Hospital04-24-2023 History of Present illness Narrative* Nina [...] (HCC) Peripheral arterial disease (HCC) 2019 R CORRECTIONAL OFFICER LIEUTENANT stent PAST SURGICAL HISTORY: PAST SURGICAL HISTORY Procedure Laterality Date BACK SURGERY HX 2019 CABG (4) VEIN GRAFTS & ARTERIAL GRAFT(S) 2016 LOWER EXTREMITY PRESCHOOL ASSISTANT PRINCIPAL W/WO STENT Right 2019 right common femoral [...] involving face and upper back. PATHOLOGY: 10/21/2022 [id number] NGS analysis KRAS G12C mutation present, 5.2% [...] as above. 04/12/2022 Bone scan ([facility]) Degenerative findings. No evidence of metastatic [...] 2015. 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 Currently stable. Continue management per PCP/cardiology. [...] with moderate relief. Will consider referral to [facility] palliative medicine if symptoms persist. 7. Abnormal LFTs Labs from today reveal significant elevation of the SGOT and SGPT, most likely transaminitis secondary to immunotherapy. We will hold treatment today and repeat labs in 1 week on return. A long course of steroids will be considered if LFTs remain abnormal. Nina Grigsby MD documented in this encounterTrihealth Mccull[facility]04-17-2023 History of Present illness Narrative* Hector Limon MD - 11/04/2022 12:12 PM EDT Radiation Oncology - On Treatment Review (OTR) Note PATIENT NAME: Cristal Gu PATIENT DIAGNOSIS: Lung cancer, left upper lobe, pleomorphic carcinoma, stage IIb [id number], stage IIB AJCC 8th edition (chest wall [...] outlined. Hector Limon MD documented in this encounterTrihealth Mccull[facility]04-15-2023 Miscellaneous Notes* Telephone Encounter - Jayson Allred MD - 11/02/2022 9:24 AM EDT Called with increasing cough and occasional blood tinged sputum. Deenies any other symptoms. Kailauin sent Instructed to see Dr. Grigsby next week documented in this encounterTrihealth Mccullough-[facility]04-13-2023 History of Present illness Narrative* Nina [...] (HCC) Peripheral arterial disease (HCC) 2019 R CORRECTIONAL OFFICER LIEUTENANT stent PAST SURGICAL HISTORY: PAST SURGICAL HISTORY Procedure Laterality Date BACK SURGERY HX 2019 CABG (4) VEIN GRAFTS & ARTERIAL GRAFT(S) 2016 LOWER EXTREMITY PRESCHOOL ASSISTANT PRINCIPAL W/WO STENT Right 2019 right common femoral [...] involving face and upper back. PATHOLOGY: 10/21/2022 [id number] NGS analysis KRAS G12C mutation present, 5.2% [...] as above. 04/12/2022 Bone scan ([facility]) Degenerative findings. No evidence of metastatic [...] persist. Nina Grigsby MD documented in this encounterTrihealth Mccullough-[facility]04-12-2023 History of Present illness Narrative* Dominique [...] states he was reading online and watching [employer] and felt confused. Discussed with pt importance [...] calculated from the following: Height as of 4/3/23: 168.3 cm (5' 6.26 ). Weight as [...] Gray MS, RDN, LD documented in this encounterTrihealth Mccullough-[facility]04-06-2023 History of Present illness Narrative* G Erasto Limon MD - 10/24/2022 5:19 PM EDT Radiation Oncology - Follow Up/new problem note PATIENT NAME: Cristal Gu PATIENT DIAGNOSIS: Lung cancer, left upper lobe, pleomorphic carcinoma, stage IIb [id number], stage IIB AJCC 8th edition (chest wall [...] left upper lobe, pleomorphic carcinoma, stage IIb [id number], stage IIB AJCC 8th edition (chest wall [...] by: Hector Limon MD cc: Christina Azul [address] [place] [phone] No referring provider defined for this encounter. documented in this encounterTrihealth Mccullough-Hy[facility]04-06-2023 Miscellaneous Notes* Telephone Encounter - Denita [...] Reminded pt of his appointment w/ the fur cutting machine operator this coming Friday, 10/28. Pt verbalizes understanding. [...] protocol. Denita Rai RN documented in this encounterTrihealth Mccullough-[facility]04-05-2023 Miscellaneous Notes* Telephone Encounter - Rolanda Oneil Pss - 10/23/2022 8:11 AM EDT Patient has appt already scheduled with JEROME on 10/28. Patient is scheduled to see Nail Machine Operator @ 10:00 after his JEROME on 10/28. [...] Pt voiced interest in meeting w/ the fur cutting machine operator. Order pended. Denita Rai RN documented in this encounterTrihealth Mccullough-Hyde [facility]04-03-2023 Nurse Note* Yani Singer - 10/21/2022 1:37 PM EDT Clinical questionnaires incomplete due to Nurse was Interrupted by provider during rooming process documented in this encounterTrihealth Mccullough-Hy[facility] Hospital04-03-2023 History of Present illness Narrative* Nina [...] (HCC) Peripheral arterial disease (HCC) 2019 R CORRECTIONAL OFFICER LIEUTENANT stent PAST SURGICAL HISTORY: PAST SURGICAL HISTORY Procedure Laterality Date BACK SURGERY HX 2019 CABG (4) VEIN GRAFTS & ARTERIAL GRAFT(S) 2016 LOWER EXTREMITY PRESCHOOL ASSISTANT PRINCIPAL W/WO STENT Right 2019 right common femoral [...] as above. 04/12/2022 Bone scan ([facility]) Degenerative findings. No evidence of metastatic [...] with moderate relief. Will consider referral to [facility] palliative medicine if symptoms persist. Nina Grigsby MD documented in this encounterTrihealth Mccullough-[facility]04-03-2023 History of Present illness Narrative* Hector Limon MD - 10/21/2022 12:00 AM EDT CRISTAL GU [id number] 10/21/2022 [facility] Radiation Oncology Department SIMULATION NOTE DATE OF SIMULATION: 10/21/2022 THERAPIST: Elizabeth Severino MACHINE: [employer] DIAGNOSIS: Malignant neoplasm of upper lobe, left [...] Electronically Signed Erasto Limon M.D. / NRS 34:40 PM documented in this encounterTrihealth Mccullough-[facility]04-03-2023 History of Present illness Narrative* Hector Limon MD - 10/21/2022 12:00 AM EDT CRISTAL GU [id number] 10/21/2022 [facility] Department of Radiation Oncology Treatment Planning [...] and DVH. Electronically Signed Erasto Limon M.D. 33:29 PM documented in this encounterTrihealth Mccullough-Hy[facility] Hospital03-31-2023 Miscellaneous Notes* Telephone Encounter - Yani Singer - 10/18/2022 3:50 PM EDT Patient has an OTV appointment on 10/21. Please place lab orders. Yani Singer documented in this encounterTrihealth Mccullough-[facility]03-31-2023 Miscellaneous Notes* Telephone Encounter - Lisa [...] Telephone Encounter - Patricia Miller APRN.RONAL - 10/17/2022 3:16 PM EDT Please obtain ER reports. Thanks, Patricia Miller APRN.HEALTH OFFICER * Telephone Encounter - Denita Rai RN - 10/17/2022 2:54 PM EDT Pt c/o intolerable pain in his left chest, shoulder and arm. Rates his pain 9- 10/10. Describes as aconstant aching pain. Was seen recently in the ER and prescribed a medrol dose pack. Pt notes the medrol tore up his stomach. Has old scripts of Oxycodone and [place] at home. Took one dose of each w/ very little relief. What do you advise for his pain? Denita Rai RN documented in this encounterTrihealth Mccullough-[facility]03-28-2023 Miscellaneous Notes* Telephone Encounter - Denita [...] how to arrange the MSK/chest wall biopsy. Pauline Dennis * Telephone Encounter - Joellen Jacome MD [...] 11:32 AM * Telephone Encounter - Treva SHUKRI Vanessa - 10/15/2022 10:14 AM EDT BX. COORDINATOR [...] 10:00 AM EDT RADIOLOGY CALL CENTER INTAKE PERSONAL LINES SALES EXECUTIVE: BIBI EXT: [id number] DATE: 10/15/2022 TIME: 10:01AM TRACKING #. [id number] REQUESTING PERSON: [place] PHONE/PAGER: [phone] REQUESTING STAFF: Jaydon Grigsby MD PHONE/PAGER: [phone] SPECIFICS OF THE REQUEST: (Please be as detailed as possible. If request is lymph node biopsy, specify LOCATION of the node if possible): IMAGING GUIDED BIOPSY LUNG ] SPECIAL REQUESTS: TISSUE SAMPLE, LABWORK: Routine Evaluation -Fine needle aspiration (FNA), core biopsy, no preference, unsure, specific processing request for pathology (For example: send for ER, [place], HER2/sarah or possible lymphoma send in RPMI [...] EVALUATE APPROPRIATENESS/FEASIBILITY OF THE REQUEST) IMAGING: [facility] (If the imaging was obtained outside the [facility] system, then it needs to be submitted for review prior to approval.) Note to all persons requesting biopsies: All biopsy requests will be scheduled as quickly as possible, based on the clinical urgency, availability of appointment times, the need to hold anti-thrombolytic therapy (aspirin, blood thinners) and the patient s schedule, including the need for an available limo driver. If a percutaneous biopsy or drainage is not felt to be safe or an alternative method for establishing a diagnosis is possible, this will be discussed directly with the requesting physician. documented in this encounterTrihealth Mccullough-Hyde [facility]03-28-2023 History of Present illness Narrative* Nina [...] shoulder. He was seen at [facility] ER on 10/09/2022 and given a [...] (HCC) Peripheral arterial disease (HCC) 2019 R CORRECTIONAL OFFICER LIEUTENANT stent PAST SURGICAL HISTORY: PAST SURGICAL HISTORY Procedure Laterality Date BACK SURGERY HX 2019 CABG (4) VEIN GRAFTS & ARTERIAL GRAFT(S) 2016 LOWER EXTREMITY PRESCHOOL ASSISTANT PRINCIPAL W/WO STENT Right 2019 right common femoral [...] as above. 04/12/2022 Bone scan ([facility]) Degenerative findings. No evidence of metastatic [...] at length. We elected to refer to [facility] interventional radiology to evaluate for biopsy [...] indicated. Nina Grigsby MD documented in this encounterTrihealth Mccullough-[facility]03-27-[address] [facility]bm[facility]03-[facility]23 History of Present illness Narrative* Nina [...] leg. He is due to see his psychiatric secretary to evaluate for possible left leg vascular [...] (HCC) Peripheral arterial disease (HCC) 2019 R CORRECTIONAL OFFICER LIEUTENANT stent PAST SURGICAL HISTORY: PAST SURGICAL HISTORY Procedure Laterality Date BACK SURGERY HX 2019 CABG (4) VEIN GRAFTS & ARTERIAL GRAFT(S) 2016 LOWER EXTREMITY PRESCHOOL ASSISTANT PRINCIPAL W/WO STENT Right 2019 right common femoral [...] as above. 04/12/2022 Bone scan ([facility]) Degenerative findings. No evidence of metastatic [...] neck CT. [facility], and clinical evaluation most consistent with inflammatory/post-infectious findings. No suspicion for malignancy. The patient apparently chews tobacco, and was advised to discontinue.He will follow- up with ENT as indicated. Nina Grigsby MD documented in this encounterTrihealth Mccullough-[facility]03-01-2023 NoteUT Cardiology - [facility] Isabel Gu Sr. is a 67 y.o. year old male patient being seen for Coronary Artery Disease, Peripheral Vascular Disease, Carotid Stenosis, and Hypertension Patient Active Problem List Diagnosis Coronary artery disease involving coronary bypass graft of [place] heart without angina pectoris PVD (peripheral vascular disease) ([facility] Primary hypertension Stenosis of carotid artery No [...] Carotid ultrasound done at the [facility] 10/30/2020: Report mentions significant area reduction [...] and Lung CA He underwent VATS at [facility] for a lung mass last year [...] Nose: Nose normal. Mouth/Throat: (more content not included)...[facility] 09-12-2022 Miscellaneous Notes* Telephone Encounter - [place] [...] Thanks, B * Telephone Encounter - [place] - 09/12/2022 8:20 AM EST Spoke to [...] RN * Telephone Encounter - Patricia Miller APRN.HEALTH OFFICER - 09/11/2022 2:41 PM EST The following approved medication requests have been transmitted electronically. Requested Prescriptions Signed Prescriptions Disp Refills levoFLOXacin (LEVAQUIN) 750 mg tablet 7 tablet 0 Sig: Take 1 tablet by mouth once daily for 7 days. Authorizing Provider: PATRICIA MILLER APRN.HEALTH OFFICER * Telephone Encounter - Denita Rai RN [...] well. Denies fevers. Has been taking Guerita Cheriton cold as well as Advil for his symptoms. Pt due to have CT scans 10/08/22. What do you advise? Denita Rai RN documented in this encounterTrihealth Mccull[facility]01-31-2023 History of Present illness Narrative* Nina [...] (HCC) Peripheral arterial disease (HCC) 2019 R CORRECTIONAL OFFICER LIEUTENANT stent PAST SURGICAL HISTORY: PAST SURGICAL HISTORY Procedure Laterality Date BACK SURGERY HX 2019 CABG (4) VEIN GRAFTS & ARTERIAL GRAFT(S) 2016 LOWER EXTREMITY PRESCHOOL ASSISTANT PRINCIPAL W/WO STENT Right 2019 right common femoral [...] as above. 04/12/2022 Bone scan ([facility]) Degenerative findings. No evidence of metastatic [...] 2015. 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 Currently stable. Continue management per PCP/cardiology. 4. Peripheral vascular disease Status post balloon angioplasty right lower leg 2019. On long-term antiplatelet agents with Plavix and Pletal. Continue management per PCP/vascular surgery. 5. Abnormal right tonsil on PET scan (05/28/2021) and neck CT (07/11/2021). Radiographic abnormalities identified on baseline PET scan and neck CT. [facility], and clinical evaluation most consistent with inflammatory/post-infectious findings. No suspicion for malignancy. The patient apparently chews tobacco, and was advised to discontinue.He will follow- up with ENT as indicated. Nina Grigsby MD documented in this encounterTrihealth Mccull[facility]12-06-2022 History of Present illness Narrative* Hector Limon MD - 06/25/2022 10:43 AM EST Radiation Oncology - Follow Up Note PATIENT NAME: Cristal Gu PATIENT DIAGNOSIS: Lung cancer, left upper lobe, pleomorphic carcinoma, stage IIb [id number], stage IIB AJCC 8th edition (chest wall [...] left upper lobe, pleomorphic carcinoma, stage IIb [id number], stage IIB AJCC 8th edition (chest wall [...] examinations. Signed by: Hector Limon MD cc: Chirstina Azul [address] [place] [address] No referring provider defined for this encounter. 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 He was not COVID tested. [...] (HCC) Peripheral arterial disease (HCC) 2019 R CORRECTIONAL OFFICER LIEUTENANT stent PAST SURGICAL HISTORY: PAST SURGICAL HISTORY Procedure Laterality Date BACK SURGERY HX 2019 CABG (4) VEIN GRAFTS & ARTERIAL GRAFT(S) 2016 LOWER EXTREMITY PRESCHOOL ASSISTANT PRINCIPAL W/WO STENT Right 2019 right common femoral [...] as above. 04/12/2022 Bone scan ([facility]) Degenerative findings. No evidence of metastatic [...] which included preparing to see the patient, lzku-yr-kbdh patient care, completing clinical documentation, obtaining and/or reviewing separately obtained history, performing a medically appropriate examination, counseling and educating the pat ient/family/caregiver, ordering medications, tests, or procedures, independently interpreting results (not separately reported), and communicating results to the patient/family/caregiver. I spent a total of 30 minutes on the date of the service which included preparing to see the patient, xdmw-io-myiy patient care, completing clinical documentation, obtaining and/or reviewing separately obtained history, performing a medically appropriate examination, counseling and educating the pat ient/family/caregiver, ordering medications, tests, or procedures, independently interpreting results (not separately reported), and communicating results to the patient/family/caregiver. documented in this encounterTrihealth Mccull[facility]11-22-2022 History of Present illness Narrative* G Erasto Limon MD - 06/11/2022 1:28 PM EST Radiation Oncology - Follow Up Note PATIENT NAME: Cristal Gu PATIENT DIAGNOSIS: Lung cancer, left upper lobe, pleomorphic carcinoma, stage IIb [id number], stage IIB AJCC 8th edition (chest wall [...] left upper lobe, pleomorphic carcinoma, stage IIb [id number], stage IIB AJCC 8th edition (chest wall [...] Limon MD cc: Christina Azul [address] [place] [address] No referring provider defined for this encounter. documented in this encounterTrihealth Mccull[facility]11-18-2022 Miscellaneous Notes* Telephone Encounter - Rosibel [...] 1:45. Rosibel Wheeler LPN documented in this encounterTrihealth Mccull[facility]11-17-2022 Miscellaneous Notes* Telephone Encounter - Yanira Infante - 06/06/2022 9:13 AM EST Called patient to follow up on missed appointment with Radha Palmer PA-C on 05/16. Unable to reach patient or leave a message at the number provided - mailbox is full. documented in this encounterTrihealth Mccull[facility]10-24-2022 Miscellaneous Notes* Telephone Encounter - Yanira [...] needs at this time. documented in this encounterTrihealth Mccullough-[facility]10-12-2022 NotePROCEDURE: XR HIP RT 2 3V WO PELVIS HISTORY: Hip pain COMPARISON: None. FINDINGS: BONES:No fracture, acute abnormality, or significant arthropathy. SOFT TISSUES:No visible soft tissue swelling. EFFUSION:None visible. OTHER: Atherosclerotic coronary artery disease. Endovascular stent within iliac artery. IMPRESSION: 1. No acute bone abnormality or significant degenerative joint disease of the right hip. Electronically authenticated by: TRUDY GUTIERREZ Date: 2022-05-01 17:28[facility]10-12-2022 History of Present illness Narrative* G Erasto Limon MD - 05/01/2022 12:00 AM EDT [facility] Radiation Oncology Department RADIATION ONCOLOGY - COMPLETION NOTE PATIENT: VICENTE GUB: 1955 DATES OF TREATMENT: 03/26/2022- 05/01/2022 DIAGNOSIS: Lung cancer, left upper lobe, pleomorphic carcinoma, stage IIb [id number], stage IIB AJCC 8th edition (chest wall [...] / WST 24:03 PM documented in this encounterTrihealth Mccullough-[facility]10-10-2022 Miscellaneous Notes* Telephone Encounter - Domonique Estrada RN - 04/29/2022 3:10 PM EDT Provided code for pharmacy, patient's medication ran through. * Telephone Encounter - TIFFANY Navarro - 04/29/2022 2:51 PM EDT [facility] in [place] called stating they need a dx code for ipratropium documented in this encounterTrihealth Mccullough-[facility]10-10-2022 Miscellaneous Notes* Telephone Encounter - Merissa Fam RN - 04/29/2022 9:17 AM EDT Pt I today for radiation and was finally able to get nebulizer machine. He does not have the duonebmedication at home and pharmacy will not fill it as it was an old prescription. Please review and sign new Rx if agreeable. Thank you! Merissa Fam RN documented in this encounterTrihealth Mccull[facility]10-03-2022 History of Present illness Narrative* Hector Limon MD - 04/22/2022 11:25 AM EDT Radiation Oncology - On Treatment Review (OTR) Note PATIENT NAME: Cristal Gu PATIENT DIAGNOSIS: Lung cancer, left upper lobe, pleomorphic carcinoma, stage IIb [id number], stage IIB AJCC 8th edition (chest wall [...] outlined. Hector Limon MD documented in this encounterTrihealth Mccull[facility]09-28-2022 Miscellaneous Notes* Telephone Encounter - Virgie Dominguez - 04/17/2022 11:14 AM EDT Patient coming in to see you on Friday04/30/22 for follow up with labs. Please add lab orders. Thanks. Virgie Dominguez MA documented in this encounterTrihealth Mccull[facility]09-26-2022 History of Present illness Narrative* Hector Limon MD - 04/15/2022 9:13 AM EDT Radiation Oncology - On Treatment Review (OTR) Note PATIENT NAME: Cristal Gu PATIENT DIAGNOSIS: Lung cancer, left upper lobe, pleomorphic carcinoma, stage IIb [id number], stage IIB AJCC 8th edition (chest wall [...] well. Hector Limon MD documented in this encounterTrihealth Mccullough-[facility]09-22-2022 Miscellaneous Notes* Telephone Encounter - Rosibel Wheeler LPN - 04/11/2022 12:19 PM EDT Patient states pharmacy did contact him and they are working on it. Rosibel Wheeler LPN * Telephone Encounter - Rosibel Wheeler LPN - 04/01/2022 1:17 PM EDT I called [facility] in [place] to get an update on [employer]'s nebulizer as he said he does not have one at home. Ofe in the pharmacy is going to look into it to see why this prescription was never completed. Laurence call the patient to get updated insurance information. Rosibel Wheeler LPN documented in this encounterTrihealth Mccull[facility]09-19-2022 History of Present illness Narrative* G Erasto Limon MD - 04/08/2022 10:18 AM EDT Radiation Oncology - On Treatment Review (OTR) Note PATIENT NAME: Cristal Gu PATIENT DIAGNOSIS: Lung cancer, left upper lobe, pleomorphic carcinoma, stage IIb [id number], stage IIB AJCC 8th edition (chest wall [...] reviewed. Hector Limon MD documented in this encounterTrihealth Mccull[facility]09-14-2022 History of Present illness Narrative* Dominique Gray, RD - 04/03/2022 9:03 AM EDT Oncology [...] Dosing Weight: 58.9 kg Estimated kilocalorie needs: 8147-8025 kilocalories determined by 30-35 kcal/kg Estimated protein needs: 59-88 grams determined by 1.0-1.5 g/kg Dosing weight Estimated fluid needs: ~6072-5359 milliliters based on 1 mL per kcal [...] Gray MS, RDN, LD documented in this encounterTrihealth Mccull[facility]09-12-2022 Miscellaneous Notes* Telephone Encounter - Carolyn Pérez MA - 04/01/2022 3:45 PM EDT [email or web address] asking if the RX can get Fax over The pharmacy need a new Rx [phone] Fax The code need to be on the RX documented in this encounterTrihealth Mccullough-Hy[facility]09-12-2022 History of Present illness Narrative* G Erasto Limon MD - 04/01/2022 9:43 AM EDT Radiation Oncology - On Treatment Review (OTR) Note PATIENT NAME: Cristal Gu PATIENT DIAGNOSIS: Lung cancer, left upper lobe, pleomorphic carcinoma, stage IIb [id number], stage IIB AJCC 8th edition (chest wall [...] outlined. Hector Limon MD documented in this encounterTrihealth Mccull[facility]09-06-2022 History of Present illness Narrative* Hector Limon MD - 03/26/2022 9:48 AM EDT Radiation Oncology - On Treatment Review (OTR) Note PATIENT NAME: Cristal Gu PATIENT DIAGNOSIS: Lung cancer, left upper lobe, pleomorphic carcinoma, stage IIb [id number], stage IIB AJCC 8th edition (chest wall [...] prescribed. Hector Limon MD documented in this encounterTrihealth Mccull[facility]08-31-2022 History of Present illness Narrative* Hector Limon MD - 03/20/2022 4:42 PM EDT sim documented in this encounterTrihealth Mccull[facility]08-30-2022 History of Present illness Narrative* Patricia [...] (HCC) Peripheral arterial disease (HCC) 2019 R CORRECTIONAL OFFICER LIEUTENANT stent PAST SURGICAL HISTORY: PAST SURGICAL HISTORY Procedure Laterality Date BACK SURGERY HX 2019 CABG (4) VEIN GRAFTS & ARTERIAL GRAFT(S) 2016 LOWER EXTREMITY PRESCHOOL ASSISTANT PRINCIPAL W/WO STENT Right 2019 right common femoral [...] which included preparing to see the patient, apcp-dv-mjkq patient care, completing clinical documentation, obtaining and/or reviewing separately obtained history, performing a medically appropriate examination, counseling and educating the pat ient/family/caregiver, ordering medications, tests, or procedures, independently interpreting results (not separately reported), and communicating results to the patient/family/caregiver. documented in this encounterTrihealth Mccullough-[facility]08-25-2022 History of Present illness Narrative* Hector Limon MD - 03/14/2022 12:00 AM EDT CRISTAL GU [id number] 03/14/2022 [facility] Radiation Oncology Department SIMULATION NOTE DATE OF SIMULATION: 03/14/2022 THERAPIST: Barbara Severino MACHINE: TargetX DIAGNOSIS: Malignant neoplasm of upper lobe, left bronchus or lungC34.12 AREA: LUNG CONTRAST: None <Select> Consent in Epic: Yes PATIENT POSITION: Supine. FIXATION DEVICE: In order to achieve accurate and reproducible treatments, the patient is immobilized with THE WINGBOARD, B PAD, CUSTOM VACBAG, SBRT KNEE SPONGE 4DCT WAS UTILIZED AT [facility] A time-out was conducted and recorded by [...] / NRS 21:18 PM documented in this encounterTrihealth Mccullough-[facility]08-25-2022 History of Present illness Narrative* Hector Limon MD - 03/14/2022 12:00 AM EDT CRISTAL GU [id number] 03/14/2022 [facility] Department of Radiation Oncology Treatment Planning [...] 97.5% isodose line with 6MV and 2 hlal. Custom MLC asym jaws for IMRT were [...] Limon M.D. 24:37 PM documented in this encounterTrihealth Mccullough-[facility]08-10-2022 Miscellaneous Notes* Telephone Encounter - Rolanda Lawrence - 02/27/2022 12:09 PM EDT Called [facility] spoke with Delfina. They received this referral and patient was seen at their office today by Cristy davey PA at 10:00. They will be faxing her note from this visit to our office once it is completed. Rolanda Lawrence * Telephone Encounter - Vanessa Fam [facility] 02/26/2022 2:05 PM EDT Records faxed to [facility]. * Telephone Encounter - Ebony Barcenas Pss - 02/26/2022 12:58 PM EDT [facility] derm scheduling out to April. Tomasa will you please fax records to [facility] jose [phone]. They will call pt to schedule, demo in your box. Thanks! * Telephone Encounter - Denita Rai RN - 02/26/2022 12:50 PM EDT Clerical: Please schedule pt w/ [facility]. Pt willing to see local or [facility]. Thanks, Denita Rai RN * Telephone Encounter - Patricia Miller APRN.CNP - 02/26/2022 12:49 PM EDT Signed. Patricia Miller APRN.HEALTH OFFICER * Telephone Encounter - Denita Rai RN [...] all day. Pt has not seen a media center director school for his skin issue. Consult order pended if you agree. Denita Rai RN documented in this encounterTrihealth Mccull[facility]08-03-2022 History of Present illness Narrative* Patricia Miller APRN.HEALTH OFFICER - 02/20/2022 2:26 PM EDT PATIENT NAME: [...] rash is still pruritic. He is applying zobd-xrt-mqjrbzaddmhto. He denies fevers, chills, night sweats and [...] (HCC) Peripheral arterial disease (HCC) 2019 R CORRECTIONAL OFFICER LIEUTENANT stent PAST SURGICAL HISTORY: PAST SURGICAL HISTORY Procedure Laterality Date BACK SURGERY HX 2019 CABG (4) VEIN GRAFTS & ARTERIAL GRAFT(S) 2016 LOWER EXTREMITY PRESCHOOL ASSISTANT PRINCIPAL W/WO STENT Right 2019 right common femoral [...] 2015. 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 Currently stable. Continue management per PCP/cardiology. [...] 10.2. Patricia Miller APRN.RONAL documented in this encounterTrihealth Mccull[facility]07-25-2022 Miscellaneous Notes* Telephone Encounter - Denita [...] possible. Denita Rai RN documented in this encounterTrihealth Mccull[facility]07-21-2022 Miscellaneous Notes* Telephone Encounter - Lisa Figueroa - 02/07/2022 4:30 PM EDT Patient sent to [facility] for TSC. Faxed order to [place] scheduling February 07, 2022 4:31 PM And the department is going to work with patient tomorrow. Lisa Figueroa documented in this encounterTrihealth Mccull[facility]07-21-2022 History of Present illness Narrative* Patricia Miller APRN.CNP - 02/07/2022 2:30 PM EDT PATIENT NAME: [...] (HCC) Peripheral arterial disease (HCC) 2019 R CORRECTIONAL OFFICER LIEUTENANT stent PAST SURGICAL HISTORY: PAST SURGICAL HISTORY Procedure Laterality Date BACK SURGERY HX 2019 CABG (4) VEIN GRAFTS & ARTERIAL GRAFT(S) 2016 LOWER EXTREMITY PRESCHOOL ASSISTANT PRINCIPAL W/WO STENT Right 2019 right common femoral [...] have 2 units of PRBCs. Patricia Miller APRN.CNP documented in this encounterTrihealth Mccullough-[facility]07-13-2022 Nurse Note* Merissa Fam RN - 01/30/2022 5:02 PM EDT Radiation Therapy - Patient Education Note PATIENT NAME: Cristal Gu PATIENT January 30, 2022 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 Signed by: Merissa Fam RN documented in this encounterTrihealth Mccullough-[facility]07-13-2022 History of Present illness Narrative* Hector Limon MD - 01/30/2022 3:00 PM EDT Radiation Oncology -follow-up note PATIENT NAME: Cristal Gu PATIENT REQUESTING PROVIDER: Dr. Grigsby DIAGNOSIS: 66 year old male with lung cancer, left upper lobe, pleomorphic carcinoma, stage IIb [id number], stage IIB AJCC 8th edition (chest wall [...] (HCC) Peripheral arterial disease (HCC) 2019 R CORRECTIONAL OFFICER LIEUTENANT stent Prior radiation therapy, collagen vascular disease, or inflammatory bowel disease: No PAST SURGICAL HISTORY Procedure Laterality Date BACK SURGERY HX 2019 CABG (4) VEIN GRAFTS & ARTERIAL GRAFT(S) 2016 LOWER EXTREMITY PRESCHOOL ASSISTANT PRINCIPAL W/WO STENT Right 2019 right common femoral [...] left upper lobe, pleomorphic carcinoma, stage IIb [id number], stage IIB AJCC 8th edition (chest wall [...] by: Hector Limon MD cc: Christina Azul [address] [place] [id number] Nina Grigsby ([facility]) [address] [place] [address] [place] [address] documented in this encounterTrihealth Mccullough-[facility]07-12-2022 History of Present illness Narrative* Ton Cervantes CRT - 01/29/2022 7:59 AM EDT PULM FUNCTION SMARTBLOCK: Provider: Verito Whelan MD Spirometry w/BD: 1 DLCO: 1 System: MC5 - [id number] documented in this encounterTrihealth Mccullough-Hy[facility]07-12-2022 History of Present illness Narrative* Verito [...] 9 on presentation. 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 He smoked 75 pack [...] (HCC) Peripheral arterial disease (HCC) 2019 R CORRECTIONAL OFFICER LIEUTENANT stent PAST SURGICAL HISTORY Procedure Laterality Date BACK SURGERY HX 2019 CABG (4) VEIN GRAFTS & ARTERIAL GRAFT(S) 2016 LOWER EXTREMITY PRESCHOOL ASSISTANT PRINCIPAL W/WO STENT Right 2019 right common femoral [...] Normal Neuro: Gait normal. Labs and imaging: [facility] [address] [place] [address] Test Date: 2022-01-29 Pat Name: CRISTAL GU Department: Room: Gender: Male Management Professor: : 1955 Requested By: Order Number: [id number] Reading MD: Interpretive Statements Pre BD: FVC [...] for spirometry met. // IMPRESSION: Site: ID: [id number] Name: CRISTAL GU Visit Date: 01/29/2022 Doctor: Management Professor: Ton Cervantes Age: 66 Date of : [...] 0.69 0.27 1.69 0.40 57 0.52 30 [id number] (L/sec) 2.45 1.14 4.26 1.07 43 1.27 [...] 2.68 BLOOD GASES HgbGmL (gm/L) 120-180 94 [facility] [address] [place] [address] Test Date: 2021-05-21 Pat Name: CRISTAL GU Department: Room: Gender: Male Management Professor: : 1955 Requested By: Order Number: [id number] Reading MD: Interpretive Statements PRE AND POST [...] and carboxyhemoglobin corrected. //AH IMPRESSION: Site: ID: [id number] Name: CRISTAL GU Visit Date: 05/21/2021 Doctor: Management Professor: Merissa Ashley Age: 66 Date of : [...] 0.70 0.27 1.71 0.17 24 0.28 61 QVC87-60 (L/sec) 2.48 1.16 4.30 0.44 17 0.73 [...] * No suspicious FDG avid osseous lesion. Travel Occupational Therapist: PSCB Transcribe Date/Time: May 28 2021 9:33A [...] in 3 months Verito Whelan MD Respiratory [place] [facility] documented in this encounterTrihealth Mccull[facility]07-12-2022 History of Present illness Narrative* RT [...] 29, 2022 7:40 AM documented in this encounterTrihealth Mccullough-[facility]07-05-2022 History of Present illness Narrative* Nina [...] (HCC) Peripheral arterial disease (HCC) 2019 R CORRECTIONAL OFFICER LIEUTENANT stent PAST SURGICAL HISTORY: PAST SURGICAL HISTORY Procedure Laterality Date BACK SURGERY HX 2019 CABG (4) VEIN GRAFTS & ARTERIAL GRAFT(S) 2016 LOWER EXTREMITY PRESCHOOL ASSISTANT PRINCIPAL W/WO STENT Right 2019 right common femoral [...] 8. Nina Grigsby MD documented in this encounterTrihealth Mccullough-[facility]06-27-2022 History of Present illness Narrative* Nina Grigsby MD - 01/14/2022 7:08 AM EDT PATIENT NAME: Cristal Gu DATE: 01/14/2022 PRIMARY CARE PHYSICIAN: Dr. Christina Azul OTHER PHYSICIANS: Dr. Verito Whelan, Dr. Dr. Fay Seay Portions of this encounter note have been [...] (HCC) Peripheral arterial disease (HCC) 2019 R CORRECTIONAL OFFICER LIEUTENANT stent PAST SURGICAL HISTORY: PAST SURGICAL HISTORY Procedure Laterality Date BACK SURGERY HX 2019 CABG (4) VEIN GRAFTS & ARTERIAL GRAFT(S) 2016 LOWER EXTREMITY PRESCHOOL ASSISTANT PRINCIPAL W/WO STENT Right 2019 right common femoral [...] 8. Nina Grigsby MD documented in this encounterTrihealth Mccullough-[facility]06-06-2022 Miscellaneous Notes* Telephone Encounter - Denita [...] [facility] [place] if needed. documented in this encounterTrihealth Mccullough-[facility]06-06-2022 History of Present illness Narrative* Denisse Campbell RN - 12/24/2021 11:53 AM EDT . documented in this encounterTrihealth Mccullough-[facility]06-06-2022 History of Present illness Narrative* Nina [...] (HCC) Peripheral arterial disease (HCC) 2019 R CORRECTIONAL OFFICER LIEUTENANT stent PAST SURGICAL HISTORY: PAST SURGICAL HISTORY Procedure Laterality Date BACK SURGERY HX 2019 CABG (4) VEIN GRAFTS & ARTERIAL GRAFT(S) 2016 LOWER EXTREMITY PRESCHOOL ASSISTANT PRINCIPAL W/WO STENT Right 2019 right common femoral [...] 8. Nina Grigsby MD documented in this encounterTrihealth Mccullough-[facility]05-26-2022 Miscellaneous Notes* Telephone Encounter - Yanira [...] ok at this time. documented in this encounterTrihealth Mccullough-Hyde [facility]05-18-2022 Miscellaneous Notes* Telephone Encounter - Denita [...] better than cycle 1. 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 Do you need to [...] protocol. Denita Rai RN documented in this encounterTrihealth Mccullough-[facility]05-16-2022 History of Present illness Narrative* Denita [...] N/A Denita Rai RN documented in this encounterTrihealth Mccullough-[facility]05-16-2022 History of Present illness Narrative* Yusef [...] (HCC) Peripheral arterial disease (HCC) 2019 R CORRECTIONAL OFFICER LIEUTENANT stent PAST SURGICAL HISTORY: PAST SURGICAL HISTORY Procedure Laterality Date BACK SURGERY HX 2019 CABG (4) VEIN GRAFTS & ARTERIAL GRAFT(S) 2016 LOWER EXTREMITY PRESCHOOL ASSISTANT PRINCIPAL W/WO STENT Right 2019 right common femoral [...] scheduled. Yusef Pandya PA-C documented in this encounterTrihealth Mccullough-Hyde [facility]05-16-2022 Miscellaneous Notes* Telephone Encounter - Vanessa Fam [facility] - 12/03/2021 9:01 AM EDT Records faxed. * Telephone Encounter - Alexandria Spicer Sec - 11/30/2021 11:08 AM EDT Appt with PCP Dr Azul for hypotension on Friday12-07-21 1:45pm Pérez Randolph is known to Dr azul but please send most recent records including med list and Blood pressure. Dr Azul has a new fax # [phone] documented in this encounterTrihealth Mccullough-[facility]05-13-2022 History of Present illness Narrative* Patricia Miller APRN.HEALTH OFFICER - 11/30/2021 10:41 AM EDT PATIENT NAME: [...] on . What do you advise? Denita Rai, KERRY Today, he states that he is feeling [...] (HCC) Peripheral arterial disease (HCC) 2019 R CORRECTIONAL OFFICER LIEUTENANT stent PAST SURGICAL HISTORY: PAST SURGICAL HISTORY Procedure Laterality Date BACK SURGERY HX 2019 CABG (4) VEIN GRAFTS & ARTERIAL GRAFT(S) 2016 LOWER EXTREMITY PRESCHOOL ASSISTANT PRINCIPAL W/WO STENT Right 2019 right common femoral [...] treatment. Patricia Miller APRN.RONAL documented in this encounterTrihealth Mccullough-[facility]05-13-2022 Nurse Note* Pavithra Jacinto MA - 11/30/2021 10:31 AM EDT Patient states he is feeling better today, he even went out for Breakfast. Pavithra Jacinto MA documented in this encounterTrihealth Mccull[facility]05-12-2022 Miscellaneous Notes* Telephone Encounter - Denita [...] advise? Denita Rai RN documented in this encounterTrihealth Mccull[facility]05-09-2022 History of Present illness Narrative* Nina [...] (HCC) Peripheral arterial disease (HCC) 2019 R CORRECTIONAL OFFICER LIEUTENANT stent PAST SURGICAL HISTORY: PAST SURGICAL HISTORY Procedure Laterality Date BACK SURGERY HX 2019 CABG (4) VEIN GRAFTS & ARTERIAL GRAFT(S) 2016 LOWER EXTREMITY PRESCHOOL ASSISTANT PRINCIPAL W/WO STENT Right 2019 right common femoral [...] closely. Nina Grigsby MD documented in this encounterTrihealth Mccull[facility]05-02-2022 Miscellaneous Notes* Telephone Encounter - Denita [...] 2.09 Ros Navarro RN documented in this encounterTrihealth Mccull[facility]05-02-2022 Miscellaneous Notes* Telephone Encounter - Denita Rai RN - 11/19/2021 11:39 AM EDT Voicemail message received from Jaclyn @ Dr Azul's office. They can see pt tomorrow @ 1030 AM. Pt notified and states that he has an appointment in [place] tomorrow. Call placed to Dr Azul's office. [...] back. Denita Rai RN documented in this encounterTrihealth Mccull[facility]05-02-2022 Miscellaneous Notes* Telephone Encounter - Denita Rai RN - 11/19/2021 9:42 AM EDT DISCHARGE CALL BACK Today's date: November 19, 2021 Notified of Pt discharge by: Hospital records requested. Patient discharged on 11/18/2021 from [facility] to Home Primary Cancer Diagnosis: Lung Cancer Admitting Diagnosis: Hypertension, Acute renal failure Discharge Summary/SBAR reviewed: Yes Handoff Discussed with Transitional Construction Driller: NO Psychosocial Risk Factors: None If patient [...] back. Denita Rai RN documented in this encounterTrihealth Mccull[facility]04-29-2022 Miscellaneous Notes* Telephone Encounter - Denita Rai RN - 11/16/2021 4:41 PM EDT Pt notified and verbalizes understanding. Agrees to go to [facility] ER for eval. Report phoned to Kelli @ [facility] ER. Med list and today's [...] 25 mg BID as prescribed per his [facility] Tool And Gauge Inspector. Advised he notify his psychiatric secretary of his readings. Any other suggestions for him? Should he go to the ER since it is so late in the day? Denita Rai RN documented in this encounterTrihealth Mccull[facility]04-29-2022 Miscellaneous Notes* Telephone Encounter - Yusef [...] and agrees. Mika, MONA, to schedule appointment. WILIAM/Yusef: Lab order pended. Please place orders for IV fluids. Thanks! Denita Rai RN documented in this encounterTrihealth Mccull[facility]04-29-2022 History of Present illness Narrative* Vanessa Cruz RN - 11/16/2021 9:17 AM EDT Creat 2.33. Pedrohussain, rn palliative care spoke with Dr. Grigsby and to patient. Patient is to come in on Friday for repeat labs and IVF. Vanessa Cruz RN * Aurelia Bradley RN - 11/16/2021 9:05 AM EDT Pt took BP meds at about 0930, he will recheck his BP at home in 2 hours. Aurelia Bradley RN documented in this encounterTrihealth Mccull[facility]04-27-2022 Miscellaneous Notes* Telephone Encounter - Yusef [...] the treatment schedule. Thanks! documented in this encounterTrihealth Mccull[facility]04-26-2022 History of Present illness Narrative* MARGARET [...] as appropriate. SUMA Finnegan documented in this encounterTrihealth Mccull[facility]04-26-2022 History of Present illness Narrative* Vanessa Cruz RN - 11/13/2021 11:35 AM EDT IVF today and labs tomorrow. Vanessa Cruz RN documented in this encounterTrihealth Mccull[facility]04-25-2022 Miscellaneous Notes* Telephone Encounter - Yusef [...] labs again on 11/14. documented in this encounterTrihealth Mccull[facility]04-22-2022 Miscellaneous Notes* Telephone Encounter - Denita [...] protocol. Denita Rai RN documented in this encounterTrihealth Mccull[facility]04-18-2022 History of Present illness Narrative* Patricia Miller APRN.HEALTH OFFICER - 11/05/2021 9:00 AM EDT PATIENT NAME: [...] (HCC) Peripheral arterial disease (HCC) 2019 R CORRECTIONAL OFFICER LIEUTENANT stent PAST SURGICAL HISTORY: PAST SURGICAL HISTORY Procedure Laterality Date BACK SURGERY HX 2019 CABG (4) VEIN GRAFTS & ARTERIAL GRAFT(S) 2016 LOWER EXTREMITY PRESCHOOL ASSISTANT PRINCIPAL W/WO STENT Right 2019 right common femoral [...] care would be adjuvant chemotherapy with a [place] doublet followed by adjuvant radiation therapy. His [...] Follow-up with ENT as indicated. Patricia Miller APRN.HEALTH OFFICER documented in this encounterTrihealth Mccull[facility]04-13-2022 History of Present illness Narrative* Jacklyn [...] 2021 TIME: 2:07 PM * Iwona Cassidy, elementary school teacher - 10/31/2021 2:00 PM EDT Radiology Service [...] 31, 2021 2:46 PM documented in this encounterTrihealth Mccull[facility]04-12-2022 Miscellaneous Notes* Telephone Encounter - Denita Rai RN - 10/30/2021 10:33 AM EDT Spoke w/ Jaz regarding pt's MRI. Informed her that the pt is currently scheduled to have this done @ [facility] in [place]. No need to schedule w/ [facility] at this time. Informed her that the pt is aware of his [place] appointment. Denita Rai RN * Telephone Encounter - Denita Rai RN - 10/30/2021 10:22 AM EDT 3rd attempt made to contact Jaz @ [employer]. No answer. Message left requesting call back. Denita Rai RN * Telephone Encounter - Denita Rai RN - 10/29/2021 11:27 AM EDT 2nd attempt made to contact Jaz @ [employer]. No answer. Message left requesting call back. Denita Rai RN * Telephone Encounter - Denita Rai RN - 10/26/2021 3:40 PM EDT Voicemail message received from [employer] [facility] [employer] requesting to speak w/ a nurse regarding pt's MRI. Call placed to number provided. No answer. Message left requesting call back. Denita Rai RN documented in this encounterTrihealth Mccull[facility]04-12-2022 Miscellaneous Notes* Telephone Encounter - Denita Rai RN - 10/30/2021 8:59 AM EDT FYI: Pt does not wish to enroll in a trial at this time. Denita Rai RN documented in this encounterTrihealth Mccull[facility]04-11-2022 Miscellaneous Notes* Telephone Encounter - Patricia [...] Thanks! Denita Rai RN documented in this encounterTrihealth Mccull[facility]04-11-2022 History of Present illness Narrative* Denita Rai RN - 10/29/2021 10:58 AM EDT Construction Driller Pre Chemo Patient identified by name and date of . YES Confirmed date and time for chemotherapy ? YES Other appointments (labs, imaging) discussed? YES Discussed where to park (nurse), charge for parking NO Discussed where to [...] treatment. YES Other topics discussed, interventions needed: CJ Rai RN * Denita Rai RN - [...] N/A Denita Rai RN documented in this encounterTrihealth Mccull[facility]04-11-2022 History of Present illness Narrative* Katlin Omer [facility] - 10/29/2021 10:53 AM EDT Images from the original note were not included. [facility] Department of Pharmacy Oncology Pharmacy Medication Education [...] patient Katlin Omer RPh documented in this encounterTrihealth Mccull[facility]04-08-2022 Miscellaneous Notes* Telephone Encounter - Bernadine Greene Sec - 10/26/2021 9:54 AM EDT Added to schedule * Telephone Encounter - Denita Rai RN - 10/26/2021 9:50 AM EDT Pt did not show for yesterday's education appointment. Spoke w/ pt who notes he forgot. Clerical: Pt will be in on Friday, 10/29 @ 10 AM for education. Please add him to my schedule. Thanks! Denita Rai RN documented in this encounterTrihealth Mccull[facility]04-07-2022 Miscellaneous Notes* Telephone Encounter - Denita Rai RN - 10/25/2021 8:10 AM EDT Scripts for antiemetics and folic acid pended. Please review and approve. Thanks, Denita Rai RN documented in this encounterTrihealth Mccull[facility]04-06-2022 History of Present illness Narrative* Hector Limon MD - 10/24/2021 3:02 PM EDT Radiation Oncology - New Patient/Consult Note PATIENT NAME: Cristal Gu PATIENT REQUESTING PROVIDER: Dr. Grigsby DIAGNOSIS: 66 year old male with lung cancer, left upper lobe, pleomorphic carcinoma, stage IIb [id number], stage IIB AJCC 8th edition (chest wall [...] (HCC) Peripheral arterial disease (HCC) 2019 R CORRECTIONAL OFFICER LIEUTENANT stent Prior radiation therapy, collagen vascular disease, or inflammatory bowel disease: No PAST SURGICAL HISTORY Procedure Laterality Date BACK SURGERY HX 2019 CABG (4) VEIN GRAFTS & ARTERIAL GRAFT(S) 2016 LOWER EXTREMITY PRESCHOOL ASSISTANT PRINCIPAL W/WO STENT Right 2019 right common femoral [...] left upper lobe, pleomorphic carcinoma, stage IIb [id number], stage IIB AJCC 8th edition (chest wall [...] by: Hector Limon MD cc: Christina Azul [facility] [place] [address] Nina Grigsby ([facility]) [address] [place] [address] [place] [address] documented in this encounterTrihealth Mccullough-[facility]04-04-2022 Miscellaneous Notes* Telephone Encounter - Raine Gallegos RN - 10/22/2021 11:16 AM EDT Returned call to Mr Gu and identified self by name and title. Cristal explained that he had received a call from his [facility] [employer] company who questioned thelocation of his upcoming MRI. Cristal was a bit confused after the call and wanted to confirm that our office did not have any concerns regarding completing his MRI at [facility]. I assured Cristal that his insurance has authorized the imaging and it may be completed at any [facility] location. He was scheduled for first available, and voiced comfort with driving to [place]. No additional questions at this time. Raine METZ, RN Specialty Construction Driller * Telephone Encounter - Mary Ailce Cabezas ADM - 10/19/2021 3:48 PM EDT Cristal Gu is calling Renetta Ponce MD today regarding Care Coordination, calling to discuss going to another hospital for his MRI. Patient has been identified by name and birthdate. Duration of symptoms: N/A Requesting response back: call on cell [phone] (home) [phone] (cell) Mary Alice SAMANIEGO October 19, 2021 documented in this encounterTrihealth Mccull[facility]04-01-2022 History of Present illness Narrative* Renetta Ponce MD - 10/19/2021 2:40 PM EDT Images from the original note were not included. [facility] NEW PATIENT VISIT Department of Hematology and Medical Oncology PATIENT NAME: Cristal Gu CLINIC NO.: [id number] DATE OF SERVICE: 10/19/2021 PCP: Christina Azul MD REFERRING PROVIDER: Marianne Fields MD. DIAGNOSIS: Pleomorphic carcinoma of the DARCIE STAGE: [id number], stage IIB AJCC 8th edition (chest wall [...] disease, PAD s/p stenting, NSTEMI s/p CABG [id number] and alcohol use who presents to discuss adjuvant therapies after his recently resected pleomorphic carcinoma of the lung. Cirstal Gu states that he was in his usual state of health and had a screening lung CT in 04/2020 which revealed a DARCIE lung nodule which was minimally avid on PET CT. He then had a follow up scanin 10/2020 and 01/2021 which showed further growth in the nodule, now measuring 2.7 cm. [facility] He saw Dr. Fields from thoracic surgery and had a PET CT at [facility] which showed hypermetabolic uptake in the [...] (HCC) Peripheral arterial disease (HCC) 2019 R CORRECTIONAL OFFICER LIEUTENANT stent PAST SURGICAL HISTORY: PAST SURGICAL HISTORY Procedure Laterality Date BACK SURGERY HX 2019 CABG (4) VEIN GRAFTS & ARTERIAL GRAFT(S) 2016 LOWER EXTREMITY PRESCHOOL ASSISTANT PRINCIPAL W/WO STENT Right 2019 right common femoral [...] receive therapy closer to home at the [facility] location. I will place a referral for him to see oncology at that site. All questions and concerns have been addressed. Renetta Ponce MD, FACP Associate Staff [facility] October 19, 2021 CC: Marianne Fields MD documented in this encounterTrihealth Mccull[facility]04-01-2022 Miscellaneous Notes* Telephone Encounter - Virgie Dominguez - 01/14/2022 9:30 AM EDT Patient scheduled to see you on Friday01/22/22 for follow up treatment. Please add lab orders. Virgie Dennis MA documented in this encounterTrihealth Mccullough-[facility]04-01-2022 Miscellaneous Notes* Telephone Encounter - Virgie Dominguez - 01/30/2022 12:49 PM EDT Patient coming in on 02/07/22 for follow up labs. Please add lab orders. Virgie Dennis MA documented in this encounterTrihealth Mccull[facility]04-01-2022 Nurse Note* Denisse Brasher LPN - 10/19/2021 9:56 AM EDT Additional intake questions: Has the patient had fever, nausea, vomiting, diarrhea, constipation, fatigue for > 1 week? No Does the patient have a decreased appetite? No Does patient want to see a [facility] M[facility]? No (yes to any of above refer [...] By: Denisse Brasher LPN documented in this encounterTrihealth Mccullough-[facility]03-24-2022 History of Present illness Narrative* Aracelis Carrillo APRN.RONAL - 10/11/2021 3:22 PM EDT Images from the original note were not included. [facility] - OUTPATIENT THORACIC SURGERY CLINIC NOTE PT NAME: [facility] NO: [id number] THORACIC SURGEON: Dr Marianne Fields DATE OF [...] in-situ hybridization tests have been determined by [facility]'s [facility] Pathology and Laboratory Medicine [place] ([facility]) in a manner consistent with CLIA requirements. One or more of these tests have not been cleared or approved by the FDA. [facility] is regulated under CLIA as qualified to [...] f/u 11/20/21 - oncology consult at the [facility] in [place] Aracelis Carrillo APRN.RONAL documented in this encounterTrihealth Mccull[facility]03-24-2022 History of Present illness Narrative* RT Anabel(Marcella) - 10/11/2021 3:00 PM EDT Radiology Service [...] 11, 2021 3:11 PM documented in this encounterTrihealth Mccullough-[facility] Hospital11-08-2021 Procedure note* Vanessa Joaquin RT(R) - [...] DIAGNOSTIC CT PERFORMED: No IV SITE: Ambulatory: [place] only - direct IV injection in the Right antecubital site POST EXAM PIV STATUS: Not applicable PROCEDURE TYPE: NM INJECT: PET/CT BODY SCAN. 9.0 mCi F18 FDG. No other medications given.. ADMINISTRATION TIME: 0745 PATIENT DISCHARGED TO: Ambulatory patient, left [place] department area. A Diagnostic radioactive procedure has taken place, with no further precautions necessary other than routine body substance precautions. More information regarding radiation safety can be found usingthis link: [email or web address] SIGNATURE: IGGY Jacome) PATIENT NAME: Cristal Gu DATE: May 28, 2021 TIME: 8:14 AM PAGER/CONTACT #: documented in this encounterTrihealth Mccullough-Hyde Memorial HospitalDischar summary Author Jair Nichols [facility] March 20, 2024 2:40pm Note Date/Time March 20, 2024 2: 40pm [facility] [address] [place] [address] Discharge Summary Signed Patient: Cristal Gu MR#: [id number] : 1955 Acct:[id number] Age/Sex: 69 / M Adm Date: 4 Loc: 3T Room: [address] [place] [address]: Jair Nichols MD Copies to: [...] compatible or not. We sent request to [facility]. Being long weekend we did not get [...] can be found in the EHR of [facility]. The patient left hospital appropriately in stable [...] % (Auto) 82.3, Lymph % (Auto) 8.6, Mora % (Auto) 8.7, Eos % (Auto) 0.2, Baso % (Auto) 0.2, Nucleat RBC Rel Count 0.0, Neut # (Auto) 4.8, Lymph # (Auto) 0.5 L, Mora # (Auto) 0.5, Eos # (Auto) 0.0, [...] signed by Jair Nichols MD> 03/20/24 1440 [facility] Work Phone: Evaluation note* Diagnosis Malignant neoplasm of upper lobe of left lung (HCC)- Primary documented in this encounter [facility] HospitalEvaludelaware [facility] note* Diagnosis Follow-up examination following surgery Follow-up examination, following unspecified surgery [facility] Malignant neoplasm of upper lobe of left lung (HCC) [facility] [place] [facility]* Diagnosis Malignant neoplasm of upper [...] kidney failure, unspecified documented in this encounter [facility] HospitalEvaludelaware [facility]* Diagnosis Malignant neoplasm of upper lobe of left lung (HCC)- Primary Acute kidney injury (HCC) Acute kidney failure, unspecified [facility]* Diagnosis Malignant neoplasm of upper lobe of left lung (HCC)- Primary Acute kidney injury (HCC) Acute kidney failure, unspecified documented in [facility]* Diagnosis Malignant neoplasm of upper lobe of left lung (HCC)- Primary Acute kidney injury (HCC) Acute kidney failure, unspecified documented in this encounter [facility] HospitalEvaludel[facility]* Diagnosis Malignant neoplasm of upper lobe of left lung (HCC)- Primary documented in this encounter [facility] HospitalEval[facility]* Diagnosis Malignant neoplasm of upper lobe of left lung (HCC)- Primary documented in this encounter [place] [facility]* Diagnosis Malignant neoplasm of upper lobe of left lung (HCC)- Primary documented in this encounter [facility] HospitalEvaludel[facility]* Diagnosis Malignant neoplasm of upper lobe of left lung (HCC)- Primary Acute kidney injury (HCC) Acute kidney failure, unspecified 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 documented in this encounter [facility]Eval[facility]* Diagnosis Malignant neoplasm of upper lobe of left lung (HCC)- Primary documented in this encounter [place] [facility]* Diagnosis Malignant neoplasm of upper lobe of left lung (HCC)- Primary 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 Skin infection Unspecified local infection of skin and subcutaneous tissue documented in this encounter [facility]Eval[facility]* Diagnosis Malignant neoplasm of upper lobe of left lung (HCC)- Primary 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 documented in this encounter [facility]Eval[facility]* Diagnosis Chronic obstructive pulmonary disease, unspecified COPD type (HCC) Lung nodule Solitary pulmonary nodule documented in this encounter [place] [facility]* Diagnosis Chronic obstructive pulmonary disease, unspecified COPD type (HCC) Lung nodule Solitary pulmonary nodule documented in this encounter [facility]Eval[facility]* Diagnosis Chronic obstructive pulmonary disease, unspecified COPD type (HCC) Malignant neoplasm of upper lobe of left lung (HCC) PAD (peripheral artery disease) (HCC) Peripheral vascular disease, unspecified documented in this encounter [facility]Evaludel[facility]* Diagnosis Malignant neoplasm of upper lobe of left lung (HCC) documented in this encounter [facility]* Diagnosis Malignant neoplasm of upper lobe of left lung (HCC)- Primary documented in this encounter [facility]* Diagnosis Malignant neoplasm of upper lobe of left lung (HCC)- Primary 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 Acute kidney injury (HCC) Acute kidney failure, unspecified Skin infection Unspecified local infection of skin and subcutaneous tissue documented in this encounter [facility] note* Diagnosis Malignant neoplasm of upper lobe of left lung (HCC)- Primary 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 Acute kidney injury (HCC) Acute kidney failure, unspecified Skin infection Unspecified local infection of skin and subcutaneous tissue documented in this encounter [facility]Eval[facility]* Diagnosis Chronic obstructive pulmonary disease, unspecified COPD type (HCC)- Primary documented in this encounter [facility] note* Diagnosis Skin rash- Primary Rash and other nonspecific skin eruption documented in this encounter [facility] note* Diagnosis Malignant neoplasm of upper lobe of left lung (HCC)- Primary 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 Skin infection Unspecified local infection of skin and subcutaneous tissue Rash Rash and other nonspecific skin eruption documented in this encounter [facility]* Diagnosis Malignant neoplasm of upper lobe of left lung (HCC)- Primary documented in this encounter [facility] noteNo assessment information availableWilson [facility] Hospital Work Phone: Evaluation note* Diagnosis Malignant neoplasm of upper lobe of left lung (HCC)- Primary documented in this encounter [facility] note* Diagnosis Malignant neoplasm of upper lobe of left lung (HCC)- Primary documented in this encounter [facility] note* Diagnosis Malignant neoplasm of upper lobe of left lung (HCC)- Primary documented in this encounter [facility]* Diagnosis Cancer related pain- Primary Neoplasm related pain (acute) (chronic) Malignant neoplasm of unspecified part of unspecified bronchus or lung (HCC) documented in this encounter [facility] note* Diagnosis Malignant neoplasm of upper lobe of left lung (HCC)- Primary documented in this encounter [facility]* Diagnosis Malignant neoplasm of upper lobe of left lung (HCC)- Primary documented in this encounter [facility] HospitalEval[facility]* Diagnosis Malignant neoplasm of upper lobe of left lung (HCC)- Primary documented in this encounter [facility] HospitalEval[facility] note* Diagnosis Malignant neoplasm of unspecified part of unspecified bronchus or lung (HCC)- Primary documented in this encounter [place] [facility]* Diagnosis Malignant neoplasm of upper lobe of left lung (HCC)- Primary 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 documented in this encounter [place] [facility]* Diagnosis Thyroid cancer (HCC)- Primary Malignant neoplasm of thyroid gland documented in this [facility] Diagnosis Malignant neoplasm of upper lobe of left lung (HCC)- Primary Centrilobular emphysema (HCC) Other emphysema documented in this encounter [facility] Diagnosis Malignant neoplasm of upper lobe of left lung (HCC)- Primary Malaise and fatigue Other malaise and fatigue documented in this [facility] Diagnosis Malignant neoplasm of upper lobe of left lung (HCC)- Primary Lung nodules Other nonspecific abnormal finding of lung field Centrilobular emphysema (HCC) Other emphysema documented [facility] this [facility] Diagnosis Malignant neoplasm of upper lobe of left lung (HCC)- Primary Abnormal CT of the chest Nonspecific (abnormal) findings on radiological and other examination of other intrathoracic organs Lung nodules Other nonspecific abnormal finding of lung field Centrilobular emphysema (HCC) Other emphysema documented [facility] this [facility] Diagnosis Cancer associated pain- Primary Neoplasm related pain (acute) (chronic) documented [facility] this [facility] Diagnosis Malignant neoplasm of upper lobe of left lung (HCC)- Primary [facility] this [facility] Diagnosis 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 Cancer related pain Neoplasm related pain (acute) (chronic) documented [facility] this encounter [facility] Diagnosis Malignant neoplasm of unspecified part of unspecified bronchus or lung (HCC)- Primary [facility] Diagnosis 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 Cancer related pain Neoplasm related pain (acute) (chronic) Centrilobular emphysema (HCC) Other emphysema Primary hypertension Unspecified essential hypertension documented [facility] this encounter [facility] Diagnosis Cancer associated pain Neoplasm related [...] [facility] Diagnosis Malignant neoplasm of unspecified [...] state, unspecified [facility] this [facility] Diagnosis Malignant neoplasm of unspecified part of unspecified bronchus or lung (HCC) [facility] Diagnosis Malignant neoplasm of upper [...] skin eruption [facility] this [facility] Diagnosis 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) [facility] Diagnosis 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 Cancer related pain Neoplasm related pain (acute) (chronic) documented [facility] this encounter [facility]* Diagnosis Palliative care by specialist- Primary [...] (HCC)- Primary [facility] this [facility] Diagnosis Malignant neoplasm of upper lobe of left lung (HCC) [facility] Diagnosis Oropharyngeal cancer (HCC)- Primary Malignant neoplasm of oropharynx, unspecified site Tonsillar mass Swelling, mass, or lump in head and neck Malignant neoplasm of upper lobe of left lung (HCC) documented [facility] this [facility] Diagnosis Oropharnyx cancer (HCC)- Primary documented [facility] this encounter [facility] Diagnosis Malignant neoplasm of upper lobe of left lung (HCC)- Primary Centrilobular emphysema (HCC) Other emphysema CAD in [place] artery Coronary atherosclerosis of [place] coronary artery PVD (peripheral vascular disease) (HCC) Peripheral vascular disease, unspecified Cancer related pain Neoplasm related pain (acute) (chronic) Tonsillar mass Swelling, mass, or lump in head and neck Abnormal LFTs Other abnormal blood chemistry Anxiety Anxiety state, unspecified Hypothyroidism due to medication documented [facility] this [facility] Diagnosis Oropharnyx cancer (HCC)- Primary documented [...] Nausea Nausea alone documented [facility] this [facility] Diagnosis 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 Tonsillar mass Swelling, mass, or lump in head and neck Primary hypertension Unspecified essential hypertension Centrilobular emphysema (HCC) Other emphysema Coronary artery disease involving [place] coronary artery of [place] heart without angina pectoris Hypothyroidism due to medication Cancer related pain Neoplasm related pain (acute) (chronic) documented [facility] this [facility] Diagnosis Primary malignant neoplasm of left [...] (HCC)- Primary [facility] Diagnosis Malignant neoplasm of upper lobe of left lung (HCC)- Primary [facility] Diagnosis Malignant neoplasm of upper lobe of left lung (HCC)- Primary 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 [facility] Diagnosis Malignant neoplasm of upper [...] pain (acute) (chronic) [facility] Diagnosis Neoplasm related pain- Primary Neoplasm related pain (acute) (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 classified elsewhere Anxiety about health Opioid contract exists Encounters for other specified administrative purpose [facility] this [facility] Diagnosis Primary malignant neoplasm of [...] left lung (HCC) Coronary artery disease involving [place] coronary artery of [place] heart without angina pectoris PAD (peripheral artery disease) (HCC) Peripheral vascular disease, unspecified Dyspnea on exertion Other dyspnea and respiratory abnormality [facility] Encounter for palliative care- Primary [...] mental status type [facility]* Diagnosis Onset Date Resolution Status Chronic left shoulder pain a cute COPD (chronic obstructive pulmonary disease) acute Debility acute Forgetfulness acute Generalized weakness acute History of lung cancer acute Mass of left lung acute Unsteady gait acute [facility] Work Phone: Evaluation note* Diagnosis 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 Swelling of arm Swelling of limb 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) documented in this encounter [facility] Diagnosis 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 Grigsby's office call tomorrow let them know that you were seen in the emergency department Please return here if you develop any chest pain, shortness of breath, numbness, tingling or any other concerns[facility] Work Phone: Hospital Discharge instructions Additional Instructions If your symptoms return/worsen or you develop any further concerns or symptoms please see your doctor or return to the emergency department immediately. As we discussed admission for further management is recommended but you will follow-up with your oncologist and your PCP. You may return to the emergency department should you change her mind.[facility] Work Phone: Hospital Discharge instructions Additional Instructions Call [facility] Central Scheduling on Friday at [phone] to schedule outpatient Brain MRI. The MRI may require prior authorization through your insurance before it can be scheduled, central scheduling will assist with this if it is needed.[facility] Work Phone: Reason for referral (narrative)* Diagnostic Procedure Only (Routine) - Pending Review Specialty Diagnoses / Procedures Referred By Contac t Referred To Contact MOLECULAR & FUNCTIONAL IMAGING Diagnoses Malignant neoplasm of unspecified part of unspecified bronchus or lung (HCC) Procedures NM BONE WHOLE BODY BONE &/JOINT IMAGING WHOLE BODY Hector Limon MD [address] [place] [address] [place] [address] Molecular & Functional Imaging [address] [place] [id number] Referral ID Status Reason Start Date Expiration Date Visits Requested Visits Authorized [id number] Pending Review Auto-Generat ed Referral 04/08/2022 05/08/2023 1 1 [facility] for referral (narrative)* Diagnostic Procedure Only (Routine) - Authorized Specialty Diagnoses / Procedures Referred By Contac t Referred To Contact MOLECULAR & FUNCTIONAL IMAGING Diagnoses Lung nodules Procedures NM PET/CT SKULL-THIGH SUBSEQUENT PET IMAGING CT ATTENUATION SKULL BASE MID-THIGH Nina Grigsby MD [address] [place] [address] [place] [address] Molecular & Functional Imaging [address] [place] [address] Referral ID Status Reason Start Date Expiration Date Visits Requested Visits Authorized [id number] Authorized Auto-Generat ed Referral 09/23/2022 10/23/2023 1 1 [facility] for referral (narrative)* Diagnostic Procedure Only (Urgent) - Closed Specialty Diagnoses / Procedures Referred By Contac t Referred To Contact MOLECULAR & FUNCTIONAL IMAGING Diagnoses Malignant neoplasm of unspecified part of unspecified bronchus or lung (HCC) Procedures NM PET/CT WHOLE BODY INITIAL TUMOR IMAG PET W/CONCURNT CT-WHOLE BODY Marianne Fields MD [address] [facility] [address] [place] [address] Molecular & Functional Imaging [address] [place] [address] Referral ID Status Reason Start Date Expiration Date V isits Requested Visits Authorized [id number] Closed Clearance Not Met - Admin/Chairm an/Director Advise to Postpone/Res chedule or Not Proceed 05/14/2021 06/13/2021 2 2 [facility] for referral (narrative)* Diagnostic Procedure Only (Routine) - Authorized Specialty Diagnoses / Procedures Referred By Contac t Referred To Contact MOLECULAR & FUNCTIONAL IMAGING Diagnoses 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) Procedures NM PET/CT SKULL-THIGH SUBSEQUENT PET IMAGING CT ATTENUATION SKULL BASE MID-THIGH Nina Grigsby MD [address] [place] [address] [place] [address] Molecular & Functional Imaging [address] [place] [address] Referral ID Status Reason Start Date Expiration Date Visits Requested Visits Authorized [id number] Authorized Auto-Generat ed Referral 08/25/2023 09/23/2024 1 1 [facility] for referral (narrative)* Diagnostic Procedure Only (Routine) - Authorized Specialty Diagnoses / Procedures Referred By Contac t Referred To Contact MOLECULAR & FUNCTIONAL IMAGING Diagnoses 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) Procedures NM PET/CT SKULL-THIGH SUBSEQUENT PET IMAGING CT ATTENUATION SKULL BASE MID-THIGH Nina Grigsby MD [address] [place] [address] [place] [address] Molecular & Functional Imaging [address] [place] [address] Referral ID Status Reason Start Date Expiration Date Visits Requested Visits Authorized [id number] Authorized Auto-Generat ed Referral 11/04/2023 12/03/2024 1 1 T [facility] for referral (narrative)* [...] ATTENUATION SKULL BASE MID-THIGH Yusef Pandya PA-C [address] [place] [address] [place] [address] Molecular & Functional Imaging [address] [place] [address] Referral ID Status Reason Start Date Expiration Date Visits Requested Visits Authorized [id number] Authorized Auto-Generat ed Referral 02/03/2024 03/04/2025 1 1 * Diagnostic Procedure Only (Urgent) - New Request Specialty Diagnoses / Procedures Referred By Contac t Referred To Contact US IMAGING Diagnoses 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) Swelling of arm Procedures US DVT UPPER LEFT DUP-SCAN XTR VEINS UNILATERAL/LIMITED STUDY Yusef Pandya PA-C [address] [place] [address] [place] [address] [place] [address] Referral ID Status Reason Start Date Expiration Date Visits Requested Visits Authorized [id number] New Request Auto-Generat ed Referral 02/03/2024 03/04/2025 1 1 [facility] for referral (narrative)* Outpatient Procedure (Routine) - Authorized Specialty Diagnoses / Procedures Referred By Contac t Referred To Contact [facility] Diagnoses Centrilobular emphysema (HCC) Dyspnea on exertion Procedures LUNG DIFFUSION CAPACITY (DLCO) [place] [address] [place] [address] [address] Referral ID Status Reason Start Date Expiration Date Visits Requested Visits Authorized [id number] Authorized Auto-Generat ed Referral 03/15/2024 04/14/2025 1 1 * Outpatient Procedure (Routine) - Authorized Specialty Diagnoses / Procedures Referred By Contac t Referred To [facility] Diagnoses Centrilobular emphysema (HCC) Dyspnea on exertion Procedures SPIROMETRY WITH DILATOR IF OBSTRUCTED BRNCDILAT RSPSE SPMTRY PRE&[place] [address] [place] [address] [address] Referral ID Status Reason Start Date Expiration Date Visits Requested Visits Authorized [id number] Authorized Auto-Generat ed Referral 03/15/2024 04/14/2025 1 1 T [facility] for referral (narrative)* [...] ATTENUATION SKULL BASE MID-THIGH Yusef Pandya PA-C [address] [place] [address] [place] [address] Molecular & Functional Imaging [address] [place] [address] Referral ID Status Reason Start Date Expiration Date V isits Requested Visits Authorized [id number] Closed Auto-Generate d Referral 02/03/2024 03/04/2025 1 1 [facility] for referral (narrative)* Diagnostic Procedure Only (Routine) - Closed Specialty Diagnoses / Procedures Referred By Contac t Referred To Contact MOLECULAR & FUNCTIONAL IMAGING Diagnoses 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) Procedures NM PET/CT SKULL-THIGH SUBSEQUENT PET IMAGING CT ATTENUATION SKULL BASE MID-THIGH Nina Grigsby MD [address] [place] [address] [place] [address] Molecular & Functional Imaging [address] [place] [address] Referral ID Status Reason Start Date Expiration Date V isits Requested Visits Authorized [id number] Closed Auto-Generate d Referral 11/04/2023 12/03/2024 1 1 [facility] for visit Narrative* Diagnostic Procedure Only (Urgent) - Closed Specialty Diagnoses / Procedures Referred By Contac t Referred To Contact MOLECULAR & FUNCTIONAL IMAGING Diagnoses Malignant neoplasm of unspecified part of unspecified bronchus or lung (HCC) Procedures NM PET/CT WHOLE BODY INITIAL TUMOR IMAG PET W/CONCURNT CT-WHOLE BODY Marianne Fields MD [address] [facility] [address] [place] [id number] Molecular & Functional Imaging [address] [place] [address] Referral ID Status Reason Start Date Expiration Date V isits Requested Visits Authorized [id number] Closed Clearance Not Met - Admin/Chairm an/Director Advise to Postpone/Res chedule or Not Proceed 05/14/2021 06/13/2021 2 2 [facility] Summary Purpose Family History Relationship Condition Age at Onset Recorded Date/T jackeline father Heart problem Unknown Malignant neoplasm of lung Unknown Advance Directives Documents on File Type Date Recorded 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 Advance Directive(s) 09/03/2021 12:55 PM Advance Directive(s) 07/10/2021 11:36 AM Documents on File Type Date Recorded 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 Advance Directive(s) 09/03/2021 12:55 PM Advance Directive(s) 07/10/2021 11:36 AM Advance Directive Response Recorded Date/ Time Advance Directives No May 11:17am Reason for Referral Specialty Diagnoses / Procedures Referred By Contac t Referred To Contact Oncology Diagnoses Malignant neoplasm of upper lobe of left lung (HCC) Procedures CONSULT TO ONCOLOGY OFFICE/OUTPATIENT [facility] 60-74 MINUTES Aracelis Carrillo APRN.CNP [address] [place] [address] Referral ID Status Reason Start Date Expiration Date Visits Requested Visits Authorized [id number] Authorized PCP Requested Referral 10/11/2021 10/11/2022 1 1 Specialty Diagnoses / Procedures Referred By Contac t Referred To Contact Oncology Diagnoses Malignant neoplasm of upper lobe of left lung (HCC) Procedures CONSULT TO ONCOLOGY OFFICE/OUTPATIENT [facility] MDM 60-74 MINUTES Renetta Ponce MD [address] [place] [address] Referral ID Status Reason Start Date Expiration Date V isits Requested Visits Authorized [id number] Closed PCP Requested Referral 10/26/2021 10/19/2022 1 1 Specialty Diagnoses / Procedures Referred By Contac t Referred To Contact MR IMAGING Diagnoses Malignant neoplasm of upper lobe of left lung (HCC) Procedures MRI BRAIN WO/W IVCON MRI BRAIN BRAIN STEM W/O W/CONTRAST MATERIAL Renetta Ponce MD [address] [place] [address] Mr Imaging Referral ID Status Reason Start Date Expiration Date Visits Requested Visits Authorized [id number] Authorized Auto-Generat ed Referral 10/26/2021 11/18/2021 1 1 Specialty Diagnoses / Procedures Referred By Contac t Referred To Contact Dermatology Diagnoses Skin rash Procedures CONSULT TO DERMATOLOGY OFFICE/OUTPATIENT [facility] 60-74 MINUTES Patricia Miller, SHEET METAL WORK FURNACE INSTALLER.[address] [place] [address] Referral ID Status Reason Start Date Expiration Date Visits Requested Visits Authorized [id number] Authorized PCP Requested Referral 02/26/2022 02/26/2023 1 1 Specialty Diagnoses / Procedures Referred By Contac t Referred To Contact CT IMAGING Diagnoses Malignant neoplasm of unspecified part of unspecified bronchus or lung (HCC) Procedures CT CHEST W IVCON DIAGNOSTIC COMPUTED TOMOGRAPHY THORAX W/CONTRAST Hector Limon MD [address] [place] [address] [place] [address] Ct Imaging Referral ID Status Reason Start Date Expiration Date V isits Requested Visits Authorized [id number] Closed Auto-Generate d Referral 06/11/2022 07/11/2023 1 1 Specialty Diagnoses / Procedures Referred By Contac t Referred To Contact CT IMAGING Diagnoses Malignant neoplasm of unspecified part of unspecified bronchus or lung (HCC) Procedures CT CHEST W IVCON DIAGNOSTIC COMPUTED TOMOGRAPHY THORAX W/CONTRAST Nina Grigsby MD [address] [facility] [place] [address] Ct Imaging Referral ID Status Reason Start Date Expiration Date Visits Requested Visits Authorized [id number] Pending Review Auto-Generat ed Referral 08/20/2022 09/19/2023 1 1 Specialty Diagnoses / Procedures Referred By Contac t Referred To Contact CT IMAGING Diagnoses Malignant neoplasm of upper lobe of left lung (HCC) Procedures CT ABD/PEL W IVCON CT ABD & PELVIS W/CONTRAST Nina Grigsby MD [address] [facility] [place] [address] Ct Imaging Referral ID Status Reason Start Date Expiration Date Visits Requested Visits Authorized [id number] Pending Review Auto-Generat ed Referral 08/20/2022 09/19/2023 1 1 Specialty Diagnoses / Procedures Referred By Contac t Referred To Contact Diagnoses Malignant neoplasm of unspecified part of unspecified bronchus or lung (HCC) Procedures CT SIM PLANNING RADIATION ONCOLOGY THER RAD SIMULAJ-AIDED FIELD SETTING COMPLEX Hector Limon MD [address] [facility] [place] [address] Referral ID Status Reason Start Date Expiration Date Visits Requested Visits Authorized [id number] Pending Review PCP Requested Referral 10/21/2022 01/19/2023 1 1 Specialty Diagnoses / Procedures Referred By Contac t Referred To Contact Diagnoses 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) Cancer related pain Procedures CONSULT TO PALLIATIVE CARE OFFICE/OUTPATIENT [facility] MDM 60-74 MINUTES Patricia Miller, OZZIE.HEALTH OFFICER [address] [facility] [place] [address] Referral ID Status Reason Start Date Expiration Date Visits Requested Visits Authorized [id number] Authorized PCP Requested Referral 05/14/2024 1 1 Specialty Diagnoses / Procedures Referred By Contac t Referred To Contact MR IMAGING Diagnoses Malignant neoplasm of upper lobe of left lung (HCC) Procedures MRI BRAIN WO/W IVCON MRI BRAIN BRAIN STEM W/O W/CONTRAST MATERIAL Renetta Ponce MD [address] [place] [address] Mr Imaging [facility]95 Referral ID Status Reason Start Date Expiration Date V isits Requested Visits Authorized [id number] Closed Auto-Generate d Referral 10/26/2021 11/18/2021 1 1 Specialty Diagnoses / Procedures Referred By Contac t Referred To Contact Diagnoses Oropharnyx cancer (HCC) Procedures CT SIM PLANNING RADIATION ONCOLOGY THER RAD SIMULAJ-AIDED FIELD SETTING COMPLEX Hector Limon MD [address] [facility] [place] [address] Referral ID Status Reason Start Date Expiration Date Visits Requested Visits Authorized [id number] Pending Review PCP Requested Referral 3 09/08/2023 1 1 Specialty Diagnoses / Procedures Referred By Contac t Referred To Contact CT IMAGING Diagnoses 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) Procedures CT CHEST W IVCON DIAGNOSTIC COMPUTED TOMOGRAPHY THORAX W/CONTRAST Nina Grigsby MD [address] [facility] [place] [address] [place] [address] Referral ID Status Reason Start Date Expiration Date V isits Requested Visits Authorized [id number] Closed Auto-Generate d Referral 10/20/2023 11/18/2024 1 1 Specialty Diagnoses / Procedures Referred By Contac t Referred To Contact [facility] Diagnoses Chronic left shoulder pain Procedures CONSULT TO PHYSICAL THERAPY PHYSICAL THERAPY EVALUATION HIGH COMPLEX 45 MINS Estella Fish, SHEET METAL WORK FURNACE 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 [address] [place] [address] [facility] [place] [address] [place] [address] Referral ID Status Reason Start Date Expiration Date Visits Requested Visits Authorized [id number] Pending Review Auto-Generat ed Referral 11/21/2023 11/20/2024 [...] plus sim IMRT Hector Limon MD [address] [place] [address] Willt Jose [address] [place] [address] Referral ID Status Reason Start Date Expiration Date Visits Requested Visits Authorized [id number] Authorized PCP Requested Referral 12/03/2023 06/03/2024 16 16 Specialty Diagnoses / Procedures Referred By Contac t Referred To Contact Vascular Surgery Diagnoses Left arm swelling Cyanosis of tip of finger Procedures CONSULT TO VASCULAR SURGERY OFFICE/OUTPATIENT [facility] 60 MINUTES Yusef Pandya PA-C [address] [place] [address] [place] [address] Referral ID Status Reason Start Date Expiration Date Visits Requested Visits Authorized [id number] Authorized PCP Requested Referral 02/04/2024 02/03/2025 1 1 Specialty Diagnoses / Procedures Referred By Contac t Referred To Contact Ent - Otolaryngology Diagnoses Abnormal CT scan, neck Sore throat Procedures CONSULT TO ENT OFFICE/OUTPATIENT [facility] 60 MINUTES Yusef Pandya PA-C [address] [place] [address] Referral ID Status Reason Start Date Expiration Date Visits Requested Visits Authorized [id number] Authorized PCP Requested Referral 02/24/2024 02/23/2025 1 [...] 1130, Approx Total Volume: 66 mL EXP 111411/26/22 Administer with 0.2 micron filter. New Bag/Syringe/Bottle [...] section and content) DATE CREATED AUTHOR 02/22/2020 [facility] DATE CREATED AUTHOR AUTHOR'S ORGANIZ ATION 10/14/2022 [facility] DATE CREATED AUTHOR AUTHOR'S ORGANIZ ATION 10/25/2022 [facility] DATE CREATED AUTHOR AUTHOR'S ORGANIZ ATION 01/18/2023 [facility] DATE CREATED AUTHOR AUTHOR'S ORGANIZ ATION 03/28/2024 [facility] DATE CREATED AUTHOR AUTHOR'S ORGANIZ ATION 03/31/2024 [facility] DATE CREATED AUTHOR AUTHOR'S ORGANIZ ATION 03/31/2024 Pranav Berkowitz [facility] Source Comments (unrecognize d section and content) In the event this informatio n is protected by the Federal Confidentiality of Alcohol and Drug Abuse Patient Records regulations: The Federal rules restrict any use of the information to criminally investigate or prosecute any alcohol or drug abuse patient.[facility] the event this information is protected by the Federal Confidentiality of Alcohol and Drug Abuse Patient Records regulations: The Federal rules restrict any use of the information to criminally investigate or prosecute any alcohol or drug abuse patient.[facility]In the event this information is protected by the Federal Confidentiality of Alcohol and Drug Abuse Patient Records regulations: The Federal rules restrict any use of the information to criminally investigate or prosecute any alcohol or drug abuse patient.[facility]In the event this information is protected by the Federal Confidentiality of Alcohol and Drug Abuse Patient Records regulations: The Federal rules restrict any use of the information to criminally investigate or prosecute any alcohol or drug abuse patient.[facility]In the event this information is protected by the Federal Confidentiality of Alcohol and Drug Abuse Patient Records regulations: The Federal rules restrict any use of the information to criminally investigate or prosecute any alcohol or drug abuse patient.[facility] HospitalIn the event this information is protected by the Federal Confidentiality of Alcohol and Drug Abuse Patient Records regulations: The Federal rules restrict any use of the information to criminally investigate or prosecute any alcohol or drug abuse patient.[facility] HospitalIn the event this information is protected by the Federal Confidentiality of Alcohol and Drug Abuse Patient Records regulations: The Federal rules restrict any use of the information to criminally investigate or prosecute any alcohol or drug abuse patient.[facility] HospitalIn the event this information is protected by the Federal Confidentiality of Alcohol and Drug Abuse Patient Records regulations: The Federal rules restrict any use of the information to criminally investigate or prosecute any alcohol or drug abuse patient.[facility] HospitalIn the event this information is protected by the Federal Confidentiality of Alcohol and Drug Abuse Patient Records regulations: The Federal rules restrict any use of the information to criminally investigate or prosecute any alcohol or drug abuse patient.[facility] HospitalIn the event this information is protected by the Federal Confidentiality of Alcohol and Drug Abuse Patient Records regulations: The Federal rules restrict any use of the information to criminally investigate or prosecute any alcohol or drug abuse patient.[facility] HospitalIn the event this information is protected by the Federal Confidentiality of Alcohol and Drug Abuse Patient Records regulations: The Federal rules restrict any use of the information to criminally investigate or prosecute any alcohol or drug abuse patient.[facility] HospitalIn the event this information is protected by the Federal Confidentiality of Alcohol and Drug Abuse Patient Records regulations: The Federal rules restrict any use of the information to criminally investigate or prosecute any alcohol or drug abuse patient.[facility] HospitalIn the event this information is protected by the Federal Confidentiality of Alcohol and Drug Abuse Patient Records regulations: The Federal rules restrict any use of the information to criminally investigate or prosecute any alcohol or drug abuse patient.[facility] HospitalIn the event this information is protected by the Federal Confidentiality of Alcohol and Drug Abuse Patient Records regulations: The Federal rules restrict any use of the information to criminally investigate or prosecute any alcohol or drug abuse patient.[facility] HospitalIn the event this information is protected by the Federal Confidentiality of Alcohol and Drug Abuse Patient Records regulations: The Federal rules restrict any use of the information to criminally investigate or prosecute any alcohol or drug abuse patient.[facility] HospitalIn the event this information is protected by the Federal Confidentiality of Alcohol and Drug Abuse Patient Records regulations: The Federal rules restrict any use of the information to criminally investigate or prosecute any alcohol or drug abuse patient.[facility] HospitalIn the event this information is protected by the Federal Confidentiality of Alcohol and Drug Abuse Patient Records regulations: The Federal rules restrict any use of the information to criminally investigate or prosecute any alcohol or drug abuse patient.[facility] HospitalIn the event this information is protected by the Federal Confidentiality of Alcohol and Drug Abuse Patient Records regulations: The Federal rules restrict any use of the information to criminally investigate or prosecute any alcohol or drug abuse patient.[facility] HospitalIn the event this information is protected by the Federal Confidentiality of Alcohol and Drug Abuse Patient Records regulations: The Federal rules restrict any use of the information to criminally investigate or prosecute any alcohol or drug abuse patient.[facility] HospitalIn the event this information is protected by the Federal Confidentiality of Alcohol and Drug Abuse Patient Records regulations: The Federal rules restrict any use of the information to criminally investigate or prosecute any alcohol or drug abuse patient.[facility] HospitalIn the event this information is protected by the Federal Confidentiality of Alcohol and Drug Abuse Patient Records regulations: The Federal rules restrict any use of the information to criminally investigate or prosecute any alcohol or drug abuse patient.[facility] HospitalIn the event this information is protected by the Federal Confidentiality of Alcohol and Drug Abuse Patient Records regulations: The Federal rules restrict any use of the information to criminally investigate or prosecute any alcohol or drug abuse patient.[facility] HospitalIn the event this information is protected by the Federal Confidentiality of Alcohol and Drug Abuse Patient Records regulations: The Federal rules restrict any use of the information to criminally investigate or prosecute any alcohol or drug abuse patient.[facility] HospitalIn the event this information is protected by the Federal Confidentiality of Alcohol and Drug Abuse Patient Records regulations: The Federal rules restrict any use of the information to criminally investigate or prosecute any alcohol or drug abuse patient.[facility] HospitalIn the event this information is protected by the Federal Confidentiality of Alcohol and Drug Abuse Patient Records regulations: The Federal rules restrict any use of the information to criminally investigate or prosecute any alcohol or drug abuse patient.[facility] HospitalIn the event this information is protected by the Federal Confidentiality of Alcohol and Drug Abuse Patient Records regulations: The Federal rules restrict any use of the information to criminally investigate or prosecute any alcohol or drug abuse patient.[facility] HospitalIn the event this information is protected by the Federal Confidentiality of Alcohol and Drug Abuse Patient Records regulations: The Federal rules restrict any use of the information to criminally investigate or prosecute any alcohol or drug abuse patient.[facility] HospitalIn the event this information is protected by the Federal Confidentiality of Alcohol and Drug Abuse Patient Records regulations: The Federal rules restrict any use of the information to criminally investigate or prosecute any alcohol or drug abuse patient.[facility] HospitalIn the event this information is protected by the Federal Confidentiality of Alcohol and Drug Abuse Patient Records regulations: The Federal rules restrict any use of the information to criminally investigate or prosecute any alcohol or drug abuse patient.[facility] HospitalIn the event this information is protected by the Federal Confidentiality of Alcohol and Drug Abuse Patient Records regulations: The Federal rules restrict any use of the information to criminally investigate or prosecute any alcohol or drug abuse patient.[facility] HospitalIn the event this information is protected by the Federal Confidentiality of Alcohol and Drug Abuse Patient Records regulations: The Federal rules restrict any use of the information to criminally investigate or prosecute any alcohol or drug abuse patient.[facility] HospitalIn the event this information is protected by the Federal Confidentiality of Alcohol and Drug Abuse Patient Records regulations: The Federal rules restrict any use of the information to criminally investigate or prosecute any alcohol or drug abuse patient.[facility] HospitalIn the event this information is protected by the Federal Confidentiality of Alcohol and Drug Abuse Patient Records regulations: The Federal rules restrict any use of the information to criminally investigate or prosecute any alcohol or drug abuse patient.[facility] HospitalIn the event this information is protected by the Federal Confidentiality of Alcohol and Drug Abuse Patient Records regulations: The Federal rules restrict any use of the information to criminally investigate or prosecute any alcohol or drug abuse patient.[facility] HospitalIn the event this information is protected by the Federal Confidentiality of Alcohol and Drug Abuse Patient Records regulations: The Federal rules restrict any use of the information to criminally investigate or prosecute any alcohol or drug abuse patient.[facility] HospitalIn the event this information is protected by the Federal Confidentiality of Alcohol and Drug Abuse Patient Records regulations: The Federal rules restrict any use of the information to criminally investigate or prosecute any alcohol or drug abuse patient.[facility] HospitalIn the event this information is protected by the Federal Confidentiality of Alcohol and Drug Abuse Patient Records regulations: The Federal rules restrict any use of the information to criminally investigate or prosecute any alcohol or drug abuse patient.[facility] HospitalIn the event this information is protected by the Federal Confidentiality of Alcohol and Drug Abuse Patient Records regulations: The Federal rules restrict any use of the information to criminally investigate or prosecute any alcohol or drug abuse patient.[facility] HospitalIn the event this information is protected by the Federal Confidentiality of Alcohol and Drug Abuse Patient Records regulations: The Federal rules restrict any use of the information to criminally investigate or prosecute any alcohol or drug abuse patient.[facility] HospitalIn the event this information is protected by the Federal Confidentiality of Alcohol and Drug Abuse Patient Records regulations: The Federal rules restrict any use of the information to criminally investigate or prosecute any alcohol or drug abuse patient.[facility] HospitalIn the event this information is protected by the Federal Confidentiality of Alcohol and Drug Abuse Patient Records regulations: The Federal rules restrict any use of the information to criminally investigate or prosecute any alcohol or drug abuse patient.[facility] HospitalIn the event this information is protected by the Federal Confidentiality of Alcohol and Drug Abuse Patient Records regulations: The Federal rules restrict any use of the information to criminally investigate or prosecute any alcohol or drug abuse patient.[facility] HospitalIn the event this information is protected by the Federal Confidentiality of Alcohol and Drug Abuse Patient Records regulations: The Federal rules restrict any use of the information to criminally investigate or prosecute any alcohol or drug abuse patient.[facility] HospitalIn the event this information is protected by the Federal Confidentiality of Alcohol and Drug Abuse Patient Records regulations: The Federal rules restrict any use of the information to criminally investigate or prosecute any alcohol or drug abuse patient.[facility] HospitalIn the event this information is protected by the Federal Confidentiality of Alcohol and Drug Abuse Patient Records regulations: The Federal rules restrict any use of the information to criminally investigate or prosecute any alcohol or drug abuse patient.[facility] HospitalIn the event this information is protected by the Federal Confidentiality of Alcohol and Drug Abuse Patient Records regulations: The Federal rules restrict any use of the information to criminally investigate or prosecute any alcohol or drug abuse patient.[facility] HospitalIn the event this information is protected by the Federal Confidentiality of Alcohol and Drug Abuse Patient Records regulations: The Federal rules restrict any use of the information to criminally investigate or prosecute any alcohol or drug abuse patient.[facility] HospitalIn the event this information is protected by the Federal Confidentiality of Alcohol and Drug Abuse Patient Records regulations: The Federal rules restrict any use of the information to criminally investigate or prosecute any alcohol or drug abuse patient.[facility] HospitalIn the event this information is protected by the Federal Confidentiality of Alcohol and Drug Abuse Patient Records regulations: The Federal rules restrict any use of the information to criminally investigate or prosecute any alcohol or drug abuse patient.[facility] HospitalIn the event this information is protected by the Federal Confidentiality of Alcohol and Drug Abuse Patient Records regulations: The Federal rules restrict any use of the information to criminally investigate or prosecute any alcohol or drug abuse patient.[facility] HospitalIn the event this information is protected by the Federal Confidentiality of Alcohol and Drug Abuse Patient Records regulations: The Federal rules restrict any use of the information to criminally investigate or prosecute any alcohol or drug abuse patient.[facility] HospitalIn the event this information is protected by the Federal Confidentiality of Alcohol and Drug Abuse Patient Records regulations: The Federal rules restrict any use of the information to criminally investigate or prosecute any alcohol or drug abuse patient.[facility] HospitalIn the event this information is protected by the Federal Confidentiality of Alcohol and Drug Abuse Patient Records regulations: The Federal rules restrict any use of the information to criminally investigate or prosecute any alcohol or drug abuse patient.[facility] HospitalIn the event this information is protected by the Federal Confidentiality of Alcohol and Drug Abuse Patient Records regulations: The Federal rules restrict any use of the information to criminally investigate or prosecute any alcohol or drug abuse patient.[facility] HospitalIn the event this information is protected by the Federal Confidentiality of Alcohol and Drug Abuse Patient Records regulations: The Federal rules restrict any use of the information to criminally investigate or prosecute any alcohol or drug abuse patient.[facility] HospitalIn the event this information is protected by the Federal Confidentiality of Alcohol and Drug Abuse Patient Records regulations: The Federal rules restrict any use of the information to criminally investigate or prosecute any alcohol or drug abuse patient.[facility] HospitalIn the event this information is protected by the Federal Confidentiality of Alcohol and Drug Abuse Patient Records regulations: The Federal rules restrict any use of the information to criminally investigate or prosecute any alcohol or drug abuse patient.[facility] HospitalIn the event this information is protected by the Federal Confidentiality of Alcohol and Drug Abuse Patient Records regulations: The Federal rules restrict any use of the information to criminally investigate or prosecute any alcohol or drug abuse patient.[facility] HospitalIn the event this information is protected by the Federal Confidentiality of Alcohol and Drug Abuse Patient Records regulations: The Federal rules restrict any use of the information to criminally investigate or prosecute any alcohol or drug abuse patient.[facility] HospitalIn the event this information is protected by the Federal Confidentiality of Alcohol and Drug Abuse Patient Records regulations: The Federal rules restrict any use of the information to criminally investigate or prosecute any alcohol or drug abuse patient.[facility] HospitalIn the event this information is protected by the Federal Confidentiality of Alcohol and Drug Abuse Patient Records regulations: The Federal rules restrict any use of the information to criminally investigate or prosecute any alcohol or drug abuse patient.[facility] HospitalIn the event this information is protected by the Federal Confidentiality of Alcohol and Drug Abuse Patient Records regulations: The Federal rules restrict any use of the information to criminally investigate or prosecute any alcohol or drug abuse patient.[facility] HospitalIn the event this information is protected by the Federal Confidentiality of Alcohol and Drug Abuse Patient Records regulations: The Federal rules restrict any use of the information to criminally investigate or prosecute any alcohol or drug abuse patient.[facility] HospitalIn the event this information is protected by the Federal Confidentiality of Alcohol and Drug Abuse Patient Records regulations: The Federal rules restrict any use of the information to criminally investigate or prosecute any alcohol or drug abuse patient.[facility] HospitalIn the event this information is protected by the Federal Confidentiality of Alcohol and Drug Abuse Patient Records regulations: The Federal rules restrict any use of the information to criminally investigate or prosecute any alcohol or drug abuse patient.[facility] HospitalIn the event this information is protected by the Federal Confidentiality of Alcohol and Drug Abuse Patient Records regulations: The Federal rules restrict any use of the information to criminally investigate or prosecute any alcohol or drug abuse patient.[facility] HospitalIn the event this information is protected by the Federal Confidentiality of Alcohol and Drug Abuse Patient Records regulations: The Federal rules restrict any use of the information to criminally investigate or prosecute any alcohol or drug abuse patient.[facility] HospitalIn the event this information is protected by the Federal Confidentiality of Alcohol and Drug Abuse Patient Records regulations: The Federal rules restrict any use of the information to criminally investigate or prosecute any alcohol or drug abuse patient.[facility] HospitalIn the event this information is protected by the Federal Confidentiality of Alcohol and Drug Abuse Patient Records regulations: The Federal rules restrict any use of the information to criminally investigate or prosecute any alcohol or drug abuse patient.[facility] HospitalIn the event this information is protected by the Federal Confidentiality of Alcohol and Drug Abuse Patient Records regulations: The Federal rules restrict any use of the information to criminally investigate or prosecute any alcohol or drug abuse patient.[facility] HospitalIn the event this information is protected by the Federal Confidentiality of Alcohol and Drug Abuse Patient Records regulations: The Federal rules restrict any use of the information to criminally investigate or prosecute any alcohol or drug abuse patient.[facility] HospitalIn the event this information is protected by the Federal Confidentiality of Alcohol and Drug Abuse Patient Records regulations: The Federal rules restrict any use of the information to criminally investigate or prosecute any alcohol or drug abuse patient.[facility] HospitalIn the event this information is protected by the Federal Confidentiality of Alcohol and Drug Abuse Patient Records regulations: The Federal rules restrict any use of the information to criminally investigate or prosecute any alcohol or drug abuse patient.[facility] HospitalIn the event this information is protected by the Federal Confidentiality of Alcohol and Drug Abuse Patient Records regulations: The Federal rules restrict any use of the information to criminally investigate or prosecute any alcohol or drug abuse patient.[facility] HospitalIn the event this information is protected by the Federal Confidentiality of Alcohol and Drug Abuse Patient Records regulations: The Federal rules restrict any use of the information to criminally investigate or prosecute any alcohol or drug abuse patient.[facility] HospitalIn the event this information is protected by the Federal Confidentiality of Alcohol and Drug Abuse Patient Records regulations: The Federal rules restrict any use of the information to criminally investigate or prosecute any alcohol or drug abuse patient.[facility] HospitalIn the event this information is protected by the Federal Confidentiality of Alcohol and Drug Abuse Patient Records regulations: The Federal rules restrict any use of the information to criminally investigate or prosecute any alcohol or drug abuse patient.[facility]In the event this information is protected by the Federal Confidentiality of Alcohol and Drug Abuse Patient Records regulations: The Federal rules restrict any use of the information to criminally investigate or prosecute any alcohol or drug abuse patient.[facility] HospitalIn the event this information is protected by the Federal Confidentiality of Alcohol and Drug Abuse Patient Records regulations: The Federal rules restrict any use of the information to criminally investigate or prosecute any alcohol or drug abuse patient.[facility] HospitalIn the event this information is protected by the Federal Confidentiality of Alcohol and Drug Abuse Patient Records regulations: The Federal rules restrict any use of the information to criminally investigate or prosecute any alcohol or drug abuse patient.[facility] HospitalIn the event this information is protected by the Federal Confidentiality of Alcohol and Drug Abuse Patient Records regulations: The Federal rules restrict any use of the information to criminally investigate or prosecute any alcohol or drug abuse patient.[facility] HospitalIn the event this information is protected by the Federal Confidentiality of Alcohol and Drug Abuse Patient Records regulations: The Federal rules restrict any use of the information to criminally investigate or prosecute any alcohol or drug abuse patient.[facility] HospitalIn the event this information is protected by the Federal Confidentiality of Alcohol and Drug Abuse Patient Records regulations: The Federal rules restrict any use of the information to criminally investigate or prosecute any alcohol or drug abuse patient.[facility] HospitalIn the event this information is protected by the Federal Confidentiality of Alcohol and Drug Abuse Patient Records regulations: The Federal rules restrict any use of the information to criminally investigate or prosecute any alcohol or drug abuse patient.[facility] HospitalIn the event this information is protected by the Federal Confidentiality of Alcohol and Drug Abuse Patient Records regulations: The Federal rules restrict any use of the information to criminally investigate or prosecute any alcohol or drug abuse patient.[facility] HospitalIn the event this information is protected by the Federal Confidentiality of Alcohol and Drug Abuse Patient Records regulations: The Federal rules restrict any use of the information to criminally investigate or prosecute any alcohol or drug abuse patient.[facility] HospitalIn the event this information is protected by the Federal Confidentiality of Alcohol and Drug Abuse Patient Records regulations: The Federal rules restrict any use of the information to criminally investigate or prosecute any alcohol or drug abuse patient.[facility] HospitalIn the event this information is protected by the Federal Confidentiality of Alcohol and Drug Abuse Patient Records regulations: The Federal rules restrict any use of the information to criminally investigate or prosecute any alcohol or drug abuse patient.[facility] HospitalIn the event this information is protected by the Federal Confidentiality of Alcohol and Drug Abuse Patient Records regulations: The Federal rules restrict any use of the information to criminally investigate or prosecute any alcohol or drug abuse patient.[facility] HospitalIn the event this information is protected by the Federal Confidentiality of Alcohol and Drug Abuse Patient Records regulations: The Federal rules restrict any use of the information to criminally investigate or prosecute any alcohol or drug abuse patient.[facility] HospitalIn the event this information is protected by the Federal Confidentiality of Alcohol and Drug Abuse Patient Records regulations: The Federal rules restrict any use of the information to criminally investigate or prosecute any alcohol or drug abuse patient.[facility] HospitalIn the event this information is protected by the Federal Confidentiality of Alcohol and Drug Abuse Patient Records regulations: The Federal rules restrict any use of the information to criminally investigate or prosecute any alcohol or drug abuse patient.[facility] HospitalIn the event this information is protected by the Federal Confidentiality of Alcohol and Drug Abuse Patient Records regulations: The Federal rules restrict any use of the information to criminally investigate or prosecute any alcohol or drug abuse patient.[facility] HospitalIn the event this information is protected by the Federal Confidentiality of Alcohol and Drug Abuse Patient Records regulations: The Federal rules restrict any use of the information to criminally investigate or prosecute any alcohol or drug abuse patient.[facility] HospitalIn the event this information is protected by the Federal Confidentiality of Alcohol and Drug Abuse Patient Records regulations: The Federal rules restrict any use of the information to criminally investigate or prosecute any alcohol or drug abuse patient.[facility] HospitalIn the event this information is protected by the Federal Confidentiality of Alcohol and Drug Abuse Patient Records regulations: The Federal rules restrict any use of the information to criminally investigate or prosecute any alcohol or drug abuse patient.[facility] HospitalIn the event this information is protected by the Federal Confidentiality of Alcohol and Drug Abuse Patient Records regulations: The Federal rules restrict any use of the information to criminally investigate or prosecute any alcohol or drug abuse patient.[facility] HospitalIn the event this information is protected by the Federal Confidentiality of Alcohol and Drug Abuse Patient Records regulations: The Federal rules restrict any use of the information to criminally investigate or prosecute any alcohol or drug abuse patient.[facility] HospitalIn the event this information is protected by the Federal Confidentiality of Alcohol and Drug Abuse Patient Records regulations: The Federal rules restrict any use of the information to criminally investigate or prosecute any alcohol or drug abuse patient.[facility] HospitalIn the event this information is protected by the Federal Confidentiality of Alcohol and Drug Abuse Patient Records regulations: The Federal rules restrict any use of the information to criminally investigate or prosecute any alcohol or drug abuse patient.[facility] HospitalIn the event this information is protected by the Federal Confidentiality of Alcohol and Drug Abuse Patient Records regulations: The Federal rules restrict any use of the information to criminally investigate or prosecute any alcohol or drug abuse patient.[facility] HospitalIn the event this information is protected by the Federal Confidentiality of Alcohol and Drug Abuse Patient Records regulations: The Federal rules restrict any use of the information to criminally investigate or prosecute any alcohol or drug abuse patient.[facility] HospitalIn the event this information is protected by the Federal Confidentiality of Alcohol and Drug Abuse Patient Records regulations: The Federal rules restrict any use of the information to criminally investigate or prosecute any alcohol or drug abuse patient.[facility] HospitalIn the event this information is protected by the Federal Confidentiality of Alcohol and Drug Abuse Patient Records regulations: The Federal rules restrict any use of the information to criminally investigate or prosecute any alcohol or drug abuse patient.[facility] HospitalIn the event this information is protected by the Federal Confidentiality of Alcohol and Drug Abuse Patient Records regulations: The Federal rules restrict any use of the information to criminally investigate or prosecute any alcohol or drug abuse patient.[facility] HospitalIn the event this information is protected by the Federal Confidentiality of Alcohol and Drug Abuse Patient Records regulations: The Federal rules restrict any use of the information to criminally investigate or prosecute any alcohol or drug abuse patient.[facility] HospitalIn the event this information is protected by the Federal Confidentiality of Alcohol and Drug Abuse Patient Records regulations: The Federal rules restrict any use of the information to criminally investigate or prosecute any alcohol or drug abuse patient.[facility] HospitalIn the event this information is protected by the Federal Confidentiality of Alcohol and Drug Abuse Patient Records regulations: The Federal rules restrict any use of the information to criminally investigate or prosecute any alcohol or drug abuse patient.[facility] HospitalIn the event this information is protected by the Federal Confidentiality of Alcohol and Drug Abuse Patient Records regulations: The Federal rules restrict any use of the information to criminally investigate or prosecute any alcohol or drug abuse patient.[facility] HospitalIn the event this information is protected by the Federal Confidentiality of Alcohol and Drug Abuse Patient Records regulations: The Federal rules restrict any use of the information to criminally investigate or prosecute any alcohol or drug abuse patient.[facility] HospitalIn the event this information is protected by the Federal Confidentiality of Alcohol and Drug Abuse Patient Records regulations: The Federal rules restrict any use of the information to criminally investigate or prosecute any alcohol or drug abuse patient.[facility] HospitalIn the event this information is protected by the Federal Confidentiality of Alcohol and Drug Abuse Patient Records regulations: The Federal rules restrict any use of the information to criminally investigate or prosecute any alcohol or drug abuse patient.[facility] HospitalIn the event this information is protected by the Federal Confidentiality of Alcohol and Drug Abuse Patient Records regulations: The Federal rules restrict any use of the information to criminally investigate or prosecute any alcohol or drug abuse patient.[facility] HospitalIn the event this information is protected by the Federal Confidentiality of Alcohol and Drug Abuse Patient Records regulations: The Federal rules restrict any use of the information to criminally investigate or prosecute any alcohol or drug abuse patient.[facility] HospitalIn the event this information is protected by the Federal Confidentiality of Alcohol and Drug Abuse Patient Records regulations: The Federal rules restrict any use of the information to criminally investigate or prosecute any alcohol or drug abuse patient.[facility] HospitalIn the event this information is protected by the Federal Confidentiality of Alcohol and Drug Abuse Patient Records regulations: The Federal rules restrict any use of the information to criminally investigate or prosecute any alcohol or drug abuse patient.[facility] HospitalIn the event this information is protected by the Federal Confidentiality of Alcohol and Drug Abuse Patient Records regulations: The Federal rules restrict any use of the information to criminally investigate or prosecute any alcohol or drug abuse patient.[facility] HospitalIn the event this information is protected by the Federal Confidentiality of Alcohol and Drug Abuse Patient Records regulations: The Federal rules restrict any use of the information to criminally investigate or prosecute any alcohol or drug abuse patient.[facility] HospitalIn the event this information is protected by the Federal Confidentiality of Alcohol and Drug Abuse Patient Records regulations: The Federal rules restrict any use of the information to criminally investigate or prosecute any alcohol or drug abuse patient.[facility] HospitalIn the event this information is protected by the Federal Confidentiality of Alcohol and Drug Abuse Patient Records regulations: The Federal rules restrict any use of the information to criminally investigate or prosecute any alcohol or drug abuse patient.[facility] HospitalIn the event this information is protected by the Federal Confidentiality of Alcohol and Drug Abuse Patient Records regulations: The Federal rules restrict any use of the information to criminally investigate or prosecute any alcohol or drug abuse patient.[facility] HospitalIn the event this information is protected by the Federal Confidentiality of Alcohol and Drug Abuse Patient Records regulations: The Federal rules restrict any use of the information to criminally investigate or prosecute any alcohol or drug abuse patient.[facility] HospitalIn the event this information is protected by the Federal Confidentiality of Alcohol and Drug Abuse Patient Records regulations: The Federal rules restrict any use of the information to criminally investigate or prosecute any alcohol or drug abuse patient.[facility] HospitalIn the event this information is protected by the Federal Confidentiality of Alcohol and Drug Abuse Patient Records regulations: The Federal rules restrict any use of the information to criminally investigate or prosecute any alcohol or drug abuse patient.[facility] HospitalIn the event this information is protected by the Federal Confidentiality of Alcohol and Drug Abuse Patient Records regulations: The Federal rules restrict any use of the information to criminally investigate or prosecute any alcohol or drug abuse patient.[facility] HospitalIn the event this information is protected by the Federal Confidentiality of Alcohol and Drug Abuse Patient Records regulations: The Federal rules restrict any use of the information to criminally investigate or prosecute any alcohol or drug abuse patient.[facility] HospitalIn the event this information is protected by the Federal Confidentiality of Alcohol and Drug Abuse Patient Records regulations: The Federal rules restrict any use of the information to criminally investigate or prosecute any alcohol or drug abuse patient.[facility] HospitalIn the event this information is protected by the Federal Confidentiality of Alcohol and Drug Abuse Patient Records regulations: The Federal rules restrict any use of the information to criminally investigate or prosecute any alcohol or drug abuse patient.[facility] HospitalIn the event this information is protected by the Federal Confidentiality of Alcohol and Drug Abuse Patient Records regulations: The Federal rules restrict any use of the information to criminally investigate or prosecute any alcohol or drug abuse patient.[facility] HospitalIn the event this information is protected by the Federal Confidentiality of Alcohol and Drug Abuse Patient Records regulations: The Federal rules restrict any use of the information to criminally investigate or prosecute any alcohol or drug abuse patient.[facility] HospitalIn the event this information is protected by the Federal Confidentiality of Alcohol and Drug Abuse Patient Records regulations: The Federal rules restrict any use of the information to criminally investigate or prosecute any alcohol or drug abuse patient.[facility] HospitalIn the event this information is protected by the Federal Confidentiality of Alcohol and Drug Abuse Patient Records regulations: The Federal rules restrict any use of the information to criminally investigate or prosecute any alcohol or drug abuse patient.[facility] HospitalIn the event this information is protected by the Federal Confidentiality of Alcohol and Drug Abuse Patient Records regulations: The Federal rules restrict any use of the information to criminally investigate or prosecute any alcohol or drug abuse patient.[facility] HospitalIn the event this information is protected by the Federal Confidentiality of Alcohol and Drug Abuse Patient Records regulations: The Federal rules restrict any use of the information to criminally investigate or prosecute any alcohol or drug abuse patient.[facility] HospitalIn the event this information is protected by the Federal Confidentiality of Alcohol and Drug Abuse Patient Records regulations: The Federal rules restrict any use of the information to criminally investigate or prosecute any alcohol or drug abuse patient.[facility] HospitalIn the event this information is protected by the Federal Confidentiality of Alcohol and Drug Abuse Patient Records regulations: The Federal rules restrict any use of the information to criminally investigate or prosecute any alcohol or drug abuse patient.[facility] HospitalIn the event this information is protected by the Federal Confidentiality of Alcohol and Drug Abuse Patient Records regulations: The Federal rules restrict any use of the information to criminally investigate or prosecute any alcohol or drug abuse patient.[facility] HospitalIn the event this information is protected by the Federal Confidentiality of Alcohol and Drug Abuse Patient Records regulations: The Federal rules restrict any use of the information to criminally investigate or prosecute any alcohol or drug abuse patient.[facility] HospitalIn the event this information is protected by the Federal Confidentiality of Alcohol and Drug Abuse Patient Records regulations: The Federal rules restrict any use of the information to criminally investigate or prosecute any alcohol or drug abuse patient.[facility] HospitalIn the event this information is protected by the Federal Confidentiality of Alcohol and Drug Abuse Patient Records regulations: The Federal rules restrict any use of the information to criminally investigate or prosecute any alcohol or drug abuse patient.[facility] HospitalIn the event this information is protected by the Federal Confidentiality of Alcohol and Drug Abuse Patient Records regulations: The Federal rules restrict any use of the information to criminally investigate or prosecute any alcohol or drug abuse patient.[facility] HospitalIn the event this information is protected by the Federal Confidentiality of Alcohol and Drug Abuse Patient Records regulations: The Federal rules restrict any use of the information to criminally investigate or prosecute any alcohol or drug abuse patient.[facility] HospitalIn the event this information is protected by the Federal Confidentiality of Alcohol and Drug Abuse Patient Records regulations: The Federal rules restrict any use of the information to criminally investigate or prosecute any alcohol or drug abuse patient.[facility] HospitalIn the event this information is protected by the Federal Confidentiality of Alcohol and Drug Abuse Patient Records regulations: The Federal rules restrict any use of the information to criminally investigate or prosecute any alcohol or drug abuse patient.[facility] HospitalIn the event this information is protected by the Federal Confidentiality of Alcohol and Drug Abuse Patient Records regulations: The Federal rules restrict any use of the information to criminally investigate or prosecute any alcohol or drug abuse patient.[facility] HospitalIn the event this information is protected by the Federal Confidentiality of Alcohol and Drug Abuse Patient Records regulations: The Federal rules restrict any use of the information to criminally investigate or prosecute any alcohol or drug abuse patient.[facility] HospitalIn the event this information is protected by the Federal Confidentiality of Alcohol and Drug Abuse Patient Records regulations: The Federal rules restrict any use of the information to criminally investigate or prosecute any alcohol or drug abuse patient.[facility] HospitalIn the event this information is protected by the Federal Confidentiality of Alcohol and Drug Abuse Patient Records regulations: The Federal rules restrict any use of the information to criminally investigate or prosecute any alcohol or drug abuse patient.[facility] HospitalIn the event this information is protected by the Federal Confidentiality of Alcohol and Drug Abuse Patient Records regulations: The Federal rules restrict any use of the information to criminally investigate or prosecute any alcohol or drug abuse patient.[facility] HospitalIn the event this information is protected by the Federal Confidentiality of Alcohol and Drug Abuse Patient Records regulations: The Federal rules restrict any use of the information to criminally investigate or prosecute any alcohol or drug abuse patient.[facility] HospitalIn the event this information is protected by the Federal Confidentiality of Alcohol and Drug Abuse Patient Records regulations: The Federal rules restrict any use of the information to criminally investigate or prosecute any alcohol or drug abuse patient.[facility] HospitalIn the event this information is protected by the Federal Confidentiality of Alcohol and Drug Abuse Patient Records regulations: The Federal rules restrict any use of the information to criminally investigate or prosecute any alcohol or drug abuse patient.[facility] HospitalIn the event this information is protected by the Federal Confidentiality of Alcohol and Drug Abuse Patient Records regulations: The Federal rules restrict any use of the information to criminally investigate or prosecute any alcohol or drug abuse patient.[facility] HospitalIn the event this information is protected by the Federal Confidentiality of Alcohol and Drug Abuse Patient Records regulations: The Federal rules restrict any use of the information to criminally investigate or prosecute any alcohol or drug abuse patient.[facility] HospitalIn the event this information is protected by the Federal Confidentiality of Alcohol and Drug Abuse Patient Records regulations: The Federal rules restrict any use of the information to criminally investigate or prosecute any alcohol or drug abuse patient.[facility] HospitalIn the event this information is protected by the Federal Confidentiality of Alcohol and Drug Abuse Patient Records regulations: The Federal rules restrict any use of the information to criminally investigate or prosecute any alcohol or drug abuse patient.[facility] HospitalIn the event this information is protected by the Federal Confidentiality of Alcohol and Drug Abuse Patient Records regulations: The Federal rules restrict any use of the information to criminally investigate or prosecute any alcohol or drug abuse patient.[facility] HospitalIn the event this information is protected by the Federal Confidentiality of Alcohol and Drug Abuse Patient Records regulations: The Federal rules restrict any use of the information to criminally investigate or prosecute any alcohol or drug abuse patient.[facility] HospitalIn the event this information is protected by the Federal Confidentiality of Alcohol and Drug Abuse Patient Records regulations: The Federal rules restrict any use of the information to criminally investigate or prosecute any alcohol or drug abuse patient.[facility] HospitalIn the event this information is protected by the Federal Confidentiality of Alcohol and Drug Abuse Patient Records regulations: The Federal rules restrict any use of the information to criminally investigate or prosecute any alcohol or drug abuse patient.[facility] HospitalIn the event this information is protected by the Federal Confidentiality of Alcohol and Drug Abuse Patient Records regulations: The Federal rules restrict any use of the information to criminally investigate or prosecute any alcohol or drug abuse patient.[facility] HospitalIn the event this information is protected by the Federal Confidentiality of Alcohol and Drug Abuse Patient Records regulations: The Federal rules restrict any use of the information to criminally investigate or prosecute any alcohol or drug abuse patient.[facility] HospitalIn the event this information is protected by the Federal Confidentiality of Alcohol and Drug Abuse Patient Records regulations: The Federal rules restrict any use of the information to criminally investigate or prosecute any alcohol or drug abuse patient.[facility] HospitalIn the event this information is protected by the Federal Confidentiality of Alcohol and Drug Abuse Patient Records regulations: The Federal rules restrict any use of the information to criminally investigate or prosecute any alcohol or drug abuse patient.[facility] HospitalIn the event this information is protected by the Federal Confidentiality of Alcohol and Drug Abuse Patient Records regulations: The Federal rules restrict any use of the information to criminally investigate or prosecute any alcohol or drug abuse patient.[facility] HospitalIn the event this information is protected by the Federal Confidentiality of Alcohol and Drug Abuse Patient Records regulations: The Federal rules restrict any use of the information to criminally investigate or prosecute any alcohol or drug abuse patient.[facility] HospitalIn the event this information is protected by the Federal Confidentiality of Alcohol and Drug Abuse Patient Records regulations: The Federal rules restrict any use of the information to criminally investigate or prosecute any alcohol or drug abuse patient.[facility] HospitalIn the event this information is protected by the Federal Confidentiality of Alcohol and Drug Abuse Patient Records regulations: The Federal rules restrict any use of the information to criminally investigate or prosecute any alcohol or drug abuse patient.[facility] HospitalIn the event this information is protected by the Federal Confidentiality of Alcohol and Drug Abuse Patient Records regulations: The Federal rules restrict any use of the information to criminally investigate or prosecute any alcohol or drug abuse patient.[facility] HospitalIn the event this information is protected by the Federal Confidentiality of Alcohol and Drug Abuse Patient Records regulations: The Federal rules restrict any use of the information to criminally investigate or prosecute any alcohol or drug abuse patient.[facility] HospitalIn the event this information is protected by the Federal Confidentiality of Alcohol and Drug Abuse Patient Records regulations: The Federal rules restrict any use of the information to criminally investigate or prosecute any alcohol or drug abuse patient.[facility] HospitalIn the event this information is protected by the Federal Confidentiality of Alcohol and Drug Abuse Patient Records regulations: The Federal rules restrict any use of the information to criminally investigate or prosecute any alcohol or drug abuse patient.[facility] HospitalIn the event this information is protected by the Federal Confidentiality of Alcohol and Drug Abuse Patient Records regulations: The Federal rules restrict any use of the information to criminally investigate or prosecute any alcohol or drug abuse patient.[facility] HospitalIn the event this information is protected by the Federal Confidentiality of Alcohol and Drug Abuse Patient Records regulations: The Federal rules restrict any use of the information to criminally investigate or prosecute any alcohol or drug abuse patient.[facility] HospitalIn the event this information is protected by the Federal Confidentiality of Alcohol and Drug Abuse Patient Records regulations: The Federal rules restrict any use of the information to criminally investigate or prosecute any alcohol or drug abuse patient.[facility] HospitalIn the event this information is protected by the Federal Confidentiality of Alcohol and Drug Abuse Patient Records regulations: The Federal rules restrict any use of the information to criminally investigate or prosecute any alcohol or drug abuse patient.[facility] HospitalIn the event this information is protected by the Federal Confidentiality of Alcohol and Drug Abuse Patient Records regulations: The Federal rules restrict any use of the information to criminally investigate or prosecute any alcohol or drug abuse patient.[facility] HospitalIn the event this information is protected by the Federal Confidentiality of Alcohol and Drug Abuse Patient Records regulations: The Federal rules restrict any use of the information to criminally investigate or prosecute any alcohol or drug abuse patient.[facility] HospitalIn the event this information is protected by the Federal Confidentiality of Alcohol and Drug Abuse Patient Records regulations: The Federal rules restrict any use of the information to criminally investigate or prosecute any alcohol or drug abuse patient.[facility] HospitalIn the event this information is protected by the Federal Confidentiality of Alcohol and Drug Abuse Patient Records regulations: The Federal rules restrict any use of the information to criminally investigate or prosecute any alcohol or drug abuse patient.[facility] HospitalIn the event this information is protected by the Federal Confidentiality of Alcohol and Drug Abuse Patient Records regulations: The Federal rules restrict any use of the information to criminally investigate or prosecute any alcohol or drug abuse patient.[facility] HospitalIn the event this information is protected by the Federal Confidentiality of Alcohol and Drug Abuse Patient Records regulations: The Federal rules restrict any use of the information to criminally investigate or prosecute any alcohol or drug abuse patient.[facility] HospitalIn the event this information is protected by the Federal Confidentiality of Alcohol and Drug Abuse Patient Records regulations: The Federal rules restrict any use of the information to criminally investigate or prosecute any alcohol or drug abuse patient.[facility] HospitalIn the event this information is protected by the Federal Confidentiality of Alcohol and Drug Abuse Patient Records regulations: The Federal rules restrict any use of the information to criminally investigate or prosecute any alcohol or drug abuse patient.[facility] HospitalIn the event this information is protected by the Federal Confidentiality of Alcohol and Drug Abuse Patient Records regulations: The Federal rules restrict any use of the information to criminally investigate or prosecute any alcohol or drug abuse patient.[facility] HospitalIn the event this information is protected by the Federal Confidentiality of Alcohol and Drug Abuse Patient Records regulations: The Federal rules restrict any use of the information to criminally investigate or prosecute any alcohol or drug abuse patient.[facility] HospitalIn the event this information is protected by the Federal Confidentiality of Alcohol and Drug Abuse Patient Records regulations: The Federal rules restrict any use of the information to criminally investigate or prosecute any alcohol or drug abuse patient.[facility] HospitalIn the event this information is protected by the Federal Confidentiality of Alcohol and Drug Abuse Patient Records regulations: The Federal rules restrict any use of the information to criminally investigate or prosecute any alcohol or drug abuse patient.[facility] HospitalIn the event this information is protected by the Federal Confidentiality of Alcohol and Drug Abuse Patient Records regulations: The Federal rules restrict any use of the information to criminally investigate or prosecute any alcohol or drug abuse patient.[facility] HospitalIn the event this information is protected by the Federal Confidentiality of Alcohol and Drug Abuse Patient Records regulations: The Federal rules restrict any use of the information to criminally investigate or prosecute any alcohol or drug abuse patient.[facility] HospitalIn the event this information is protected by the Federal Confidentiality of Alcohol and Drug Abuse Patient Records regulations: The Federal rules restrict any use of the information to criminally investigate or prosecute any alcohol or drug abuse patient.[facility] HospitalIn the event this information is protected by the Federal Confidentiality of Alcohol and Drug Abuse Patient Records regulations: The Federal rules restrict any use of the information to criminally investigate or prosecute any alcohol or drug abuse patient.[facility] HospitalIn the event this information is protected by the Federal Confidentiality of Alcohol and Drug Abuse Patient Records regulations: The Federal rules restrict any use of the information to criminally investigate or prosecute any alcohol or drug abuse patient.[facility] HospitalIn the event this information is protected by the Federal Confidentiality of Alcohol and Drug Abuse Patient Records regulations: The Federal rules restrict any use of the information to criminally investigate or prosecute any alcohol or drug abuse patient.[facility] HospitalIn the event this information is protected by the Federal Confidentiality of Alcohol and Drug Abuse Patient Records regulations: The Federal rules restrict any use of the information to criminally investigate or prosecute any alcohol or drug abuse patient.[facility] HospitalIn the event this information is protected by the Federal Confidentiality of Alcohol and Drug Abuse Patient Records regulations: The Federal rules restrict any use of the information to criminally investigate or prosecute any alcohol or drug abuse patient.[facility] HospitalIn the event this information is protected by the Federal Confidentiality of Alcohol and Drug Abuse Patient Records regulations: The Federal rules restrict any use of the information to criminally investigate or prosecute any alcohol or drug abuse patient.[facility] HospitalIn the event this information is protected by the Federal Confidentiality of Alcohol and Drug Abuse Patient Records regulations: The Federal rules restrict any use of the information to criminally investigate or prosecute any alcohol or drug abuse patient.[facility] HospitalIn the event this information is protected by the Federal Confidentiality of Alcohol and Drug Abuse Patient Records regulations: The Federal rules restrict any use of the information to criminally investigate or prosecute any alcohol or drug abuse patient.[facility] HospitalIn the event this information is protected by the Federal Confidentiality of Alcohol and Drug Abuse Patient Records regulations: The Federal rules restrict any use of the information to criminally investigate or prosecute any alcohol or drug abuse patient.[facility] HospitalIn the event this information is protected by the Federal Confidentiality of Alcohol and Drug Abuse Patient Records regulations: The Federal rules restrict any use of the information to criminally investigate or prosecute any alcohol or drug abuse patient.[facility] HospitalIn the event this information is protected by the Federal Confidentiality of Alcohol and Drug Abuse Patient Records regulations: The Federal rules restrict any use of the information to criminally investigate or prosecute any alcohol or drug abuse patient.[facility] HospitalIn the event this information is protected by the Federal Confidentiality of Alcohol and Drug Abuse Patient Records regulations: The Federal rules restrict any use of the information to criminally investigate or prosecute any alcohol or drug abuse patient.[facility] HospitalIn the event this information is protected by the Federal Confidentiality of Alcohol and Drug Abuse Patient Records regulations: The Federal rules restrict any use of the information to criminally investigate or prosecute any alcohol or drug abuse patient.[facility] HospitalIn the event this information is protected by the Federal Confidentiality of Alcohol and Drug Abuse Patient Records regulations: The Federal rules restrict any use of the information to criminally investigate or prosecute any alcohol or drug abuse patient.[facility] HospitalIn the event this information is protected by the Federal Confidentiality of Alcohol and Drug Abuse Patient Records regulations: The Federal rules restrict any use of the information to criminally investigate or prosecute any alcohol or drug abuse patient.[facility] HospitalIn the event this information is protected by the Federal Confidentiality of Alcohol and Drug Abuse Patient Records regulations: The Federal rules restrict any use of the information to criminally investigate or prosecute any alcohol or drug abuse patient.[facility] HospitalIn the event this information is protected by the Federal Confidentiality of Alcohol and Drug Abuse Patient Records regulations: The Federal rules restrict any use of the information to criminally investigate or prosecute any alcohol or drug abuse patient.[facility] HospitalIn the event this information is protected by the Federal Confidentiality of Alcohol and Drug Abuse Patient Records regulations: The Federal rules restrict any use of the information to criminally investigate or prosecute any alcohol or drug abuse patient.[facility] HospitalIn the event this information is protected by the Federal Confidentiality of Alcohol and Drug Abuse Patient Records regulations: The Federal rules restrict any use of the information to criminally investigate or prosecute any alcohol or drug abuse patient.[facility] HospitalIn the event this information is protected by the Federal Confidentiality of Alcohol and Drug Abuse Patient Records regulations: The Federal rules restrict any use of the information to criminally investigate or prosecute any alcohol or drug abuse patient.[facility] HospitalIn the event this information is protected by the Federal Confidentiality of Alcohol and Drug Abuse Patient Records regulations: The Federal rules restrict any use of the information to criminally investigate or prosecute any alcohol or drug abuse patient.[facility] HospitalIn the event this information is protected by the Federal Confidentiality of Alcohol and Drug Abuse Patient Records regulations: The Federal rules restrict any use of the information to criminally investigate or prosecute any alcohol or drug abuse patient.[facility] HospitalIn the event this information is protected by the Federal Confidentiality of Alcohol and Drug Abuse Patient Records regulations: The Federal rules restrict any use of the information to criminally investigate or prosecute any alcohol or drug abuse patient.[facility] HospitalIn the event this information is protected by the Federal Confidentiality of Alcohol and Drug Abuse Patient Records regulations: The Federal rules restrict any use of the information to criminally investigate or prosecute any alcohol or drug abuse patient.[facility] HospitalIn the event this information is protected by the Federal Confidentiality of Alcohol and Drug Abuse Patient Records regulations: The Federal rules restrict any use of the information to criminally investigate or prosecute any alcohol or drug abuse patient.[facility] HospitalIn the event this information is protected by the Federal Confidentiality of Alcohol and Drug Abuse Patient Records regulations: The Federal rules restrict any use of the information to criminally investigate or prosecute any alcohol or drug abuse patient.[facility] HospitalIn the event this information is protected by the Federal Confidentiality of Alcohol and Drug Abuse Patient Records regulations: The Federal rules restrict any use of the information to criminally investigate or prosecute any alcohol or drug abuse patient.[facility] HospitalIn the event this information is protected by the Federal Confidentiality of Alcohol and Drug Abuse Patient Records regulations: The Federal rules restrict any use of the information to criminally investigate or prosecute any alcohol or drug abuse patient.[facility] HospitalIn the event this information is protected by the Federal Confidentiality of Alcohol and Drug Abuse Patient Records regulations: The Federal rules restrict any use of the information to criminally investigate or prosecute any alcohol or drug abuse patient.[facility] HospitalIn the event this information is protected by the Federal Confidentiality of Alcohol and Drug Abuse Patient Records regulations: The Federal rules restrict any use of the information to criminally investigate or prosecute any alcohol or drug abuse patient.[facility] HospitalIn the event this information is protected by the Federal Confidentiality of Alcohol and Drug Abuse Patient Records regulations: The Federal rules restrict any use of the information to criminally investigate or prosecute any alcohol or drug abuse patient.[facility] HospitalIn the event this information is protected by the Federal Confidentiality of Alcohol and Drug Abuse Patient Records regulations: The Federal rules restrict any use of the information to criminally investigate or prosecute any alcohol or drug abuse patient.[facility] HospitalIn the event this information is protected by the Federal Confidentiality of Alcohol and Drug Abuse Patient Records regulations: The Federal rules restrict any use of the information to criminally investigate or prosecute any alcohol or drug abuse patient.[facility] HospitalIn the event this information is protected by the Federal Confidentiality of Alcohol and Drug Abuse Patient Records regulations: The Federal rules restrict any use of the information to criminally investigate or prosecute any alcohol or drug abuse patient.[facility] HospitalIn the event this information is protected by the Federal Confidentiality of Alcohol and Drug Abuse Patient Records regulations: The Federal rules restrict any use of the information to criminally investigate or prosecute any alcohol or drug abuse patient.[facility] HospitalIn the event this information is protected by the Federal Confidentiality of Alcohol and Drug Abuse Patient Records regulations: The Federal rules restrict any use of the information to criminally investigate or prosecute any alcohol or drug abuse patient.[facility] HospitalIn the event this information is protected by the Federal Confidentiality of Alcohol and Drug Abuse Patient Records regulations: The Federal rules restrict any use of the information to criminally investigate or prosecute any alcohol or drug abuse patient.[facility] Care Teams (unrecognized sec tion and content) Appointment Specialist Relationship Specialty Start Date End Date Christina Azul MD [address] [place] [address] PCP - General Family Practice 07/03/21 Sofie Diana MD [address] [place] [address] Primary Staff Physician Cardiology 07/03/21 Verito Whelan MD [address] [place] [address] Referring Pulmonary Disease 10/04/21 Appointment Specialist Relationship Specialty Start Date End Date Christina Azul MD [address] [place] [address] PCP - General Family Practice 07/03/21 Sofie Diana MD [address] [place] [address] Primary Staff Physician Cardiology 07/03/21 Verito Whelan MD [address] [place] [address] Referring Pulmonary Disease 10/04/21 Appointment Specialist Relationship Specialty Start Date End Date Christina Azul MD [address] [place] [address] PCP - General Family Practice 07/03/21 Sofie Diana MD [address] [facility] [place] [address] Primary Staff Physician Cardiology 07/03/21 Verito Whelan MD [address] [place] [address] Referring Pulmonary Disease 10/04/21 Appointment Specialist Relationship Specialty Start Date End Date Christina Azul MD [address] [place] [address] PCP - General Family Practice 07/03/21 Sofie Diana MD [address] [facility] [place] [address] Primary Staff Physician Cardiology 07/03/21 Verito Whelan MD [address] [place] [address] Referring Pulmonary Disease 10/04/21 Nina Grigsby MD [address] [place] [address] [place] [address] Physician Hematology/Oncology 10/25/21 Patricia Miller, SHEET [employer] WORK F[employer]NACE 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 [address] [facility] [place] [address] Nurse Practitioner Hematology/Oncology 10/25/21 Denita Rai, RN [address] [facility] [place] [address] Specialty Construction Driller Hematology/Oncology 10/25/21 Appointment Specialist Relationship Specialty Start Date End Date Christina Azul MD [address] [place] [address] PCP - General Family Practice 07/03/21 Sofie Diana MD [address] [place] [address] Primary Staff Physician Cardiology 07/03/21 Verito Whelan MD [address] [place] [address] Referring Pulmonary Disease 10/04/21 Nina Grigsby MD [address] [facility] [place] [address] Physician Hematology/Oncology 10/25/21 Patricia Miller, SHEET METAL WORK FURNACE 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 [address] [facility] [place] [address] Nurse Practitioner Hematology/Oncology 10/25/21 Denita Rai, KERRY [address] [facility] [place] [address] Specialty Construction Driller Hematology/Oncology 10/25/21 Appointment Specialist Relationship Specialty Start Date End Date Christina Azul MD [address] [place] [address] PCP - General Family Practice 07/03/21 Sofie Diana MD [address] [place] [address] Primary Staff Physician Cardiology 07/03/21 Verito Whelan MD [address] [place] [address] Referring Pulmonary Disease 10/04/21 Appointment Specialist Relationship Specialty Start Date End Date Christina Azul MD [address] [place] [address] PCP - General Family Practice 07/03/21 Sofie Diana MD [address] [place] [address] Primary Staff Physician Cardiology 07/03/21 Verito Whelan MD [address] [place] [address] Referring Pulmonary Disease 10/04/21 Nina Grigsby MD [address] [facility] [place] [address] Physician Hematology/Oncology 10/25/21 Patricia Miller, SHEET METAL WORK FURNACE INSTALLER.[facility] [address] [facility] [place] [address] Nurse Practitioner Hematology/Oncology 10/25/21 Denita Rai, KERRY [address] [facility] [place] [address] Specialty Construction Driller Hematology/Oncology 10/25/21 Appointment Specialist Relationship Specialty Start Date End Date Christina Auzl MD [address] [place] [address] PCP - General Family Practice 07/03/21 Sofie Diana MD [address] [place] [address] Primary Staff Physician Cardiology 07/03/21 Verito Whelan MD [address] [place] [address] Referring Pulmonary Disease 10/04/21 Nina Grigsby MD [address] [facility] [place] [address] Physician Hematology/Oncology 10/25/21 Patricia Miller, SHEET METAL WORK FURNACE 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 [address] [facility] [place] [address] Nurse Practitioner Hematology/Oncology 10/25/21 Denita Rai, KERRY [address] [place] [address] [place] [address] Specialty Construction Driller Hematology/Oncology 10/25/21 Appointment Specialist Relationship Specialty Start Date End Date Christina Azul MD [address] [place] [address] PCP - General Family Practice 07/03/21 Sofie Diana MD [address] [place] [address] Primary Staff Physician Cardiology 07/03/21 Verito Whelan MD [address] [place] [address] Referring Pulmonary Disease 10/04/21 Nina Grigbsy MD [address] [facility] [place] [address] Physician Hematology/Oncology 10/25/21 Patricia Miller, SHEET METAL WORK FURNACE 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 [address] [facility] [place] [address] Nurse Practitioner Hematology/Oncology 10/25/21 Denita Rai, KERRY [address] [facility] [place] [address] Specialty Construction Driller Hematology/Oncology 10/25/21 Appointment Specialist Relationship Specialty Start Date End Date Christina Azul MD [address] [place] [address] PCP - General Family Practice 07/03/21 Sofie Diana MD [address] [place] [address] Primary Staff Physician Cardiology 07/03/21 Verito Whelan MD [address] [place], [place] [id number] Referring Pulmonary Disease 10/04/21 Nina Grigsby MD [address] [facility] [place] [address] Physician Hematology/Oncology 10/25/21 Patricia Miller, SHEET METAL WORK FURNACE 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 [address] [facility] [place] [address] Nurse Practitioner Hematology/Oncology 10/25/21 Denita Rai, RN [address] [facility] [place] [address] Specialty Construction Driller Hematology/Oncology 10/25/21 Appointment Specialist Relationship Specialty Start Date End Date Christina Azul MD [address] [place] [id number] PCP - General Family Practice 07/03/21 Sofie Diana MD [address] [place] [address] Primary Staff Physician Cardiology 07/03/21 Verito Whelan MD [address] [place] [address] Referring Pulmonary Disease 10/04/21 Nina Grigsby MD [address] [facility] [place] [address] Physician Hematology/Oncology 10/25/21 Patricia Miller, SHEET METAL WORK FURNACE 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 [address] [facility] [place] [address] Nurse Practitioner Hematology/Oncology 10/25/21 Denita Rai, RN [address] [facility] [place] [address] Specialty Construction Driller Hematology/Oncology 10/25/21 Appointment Specialist Relationship Specialty Start Date End Date Christina Azul MD [address] [place] [address] PCP - General Family Practice 07/03/21 Sofie Diana MD [address] [place] [address] Primary Staff Physician Cardiology 07/03/21 Verito Whelan MD [address] [place] [address] Referring Pulmonary Disease 10/04/21 Nina Grigsby MD [address] [facility] [place] [address] Physician Hematology/Oncology 10/25/21 Patricia Miller, SHEET METAL WORK FURNACE 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 [address] [facility] [place] [address] Nurse Practitioner Hematology/Oncology 10/25/21 Denita Rai, RN [address] [facility] [place] [address] Specialty Construction Driller Hematology/Oncology 10/25/21 Appointment Specialist Relationship Specialty Start Date End Date Christina Azul MD [address] [place] [address] PCP - General Family Practice 07/03/21 Sofie Diana MD [address] [place] [address] Primary Staff Physician Cardiology 07/03/21 Verito Whelan MD [address] [place] [address] Referring Pulmonary Disease 10/04/21 Nina Grigsby MD [address] [facility] [place] [address] Physician Hematology/Oncology 10/25/21 Patricia Miller APRN.HEALTH OFFICER [address] [facility] [place] [address] Nurse Practitioner Hematology/Oncology 10/25/21 Denita Rai, RN [address] [facility] [place] [address] Specialty Construction Driller Hematology/Oncology 10/25/21 Appointment Specialist Relationship Specialty Start Date End Date Christina Azul MD [address] [place] [id number] PCP - General Family Practice 07/03/21 Sofie Diana MD [address] [place] [address] Primary Staff Physician Cardiology 07/03/21 Verito Whelan MD [address] [place] [address] Referring Pulmonary Disease 10/04/21 Nina Grigsby MD [address] [facility] [place] [address] Physician Hematology/Oncology 10/25/21 Patricia Miller, SHEET METAL WORK FURNACE 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 [address] [facility] [place] [address] Nurse Practitioner Hematology/Oncology 10/25/21 Denita Rai, KERRY [address] [facility] [place] [address] Specialty Construction Driller Hematology/Oncology 10/25/21 Appointment Specialist Relationship Specialty Start Date End Date Christina Azul MD [address] [place] [address] PCP - General Family Practice 07/03/21 Sofie Diana MD [address] [place] [address] Primary Staff Physician Cardiology 07/03/21 Verito Whelan MD [address] [place] [address] Referring Pulmonary Disease 10/04/21 Nina Grigsby MD [address] [facility] [place] [address] Physician Hematology/Oncology 10/25/21 Patricia Miller, SHEET METAL WORK FURNACE 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 [address] [facility] [place] [address] Nurse Practitioner Hematology/Oncology 10/25/21 Denita Rai, KERRY [address] [facility] [place] [address] Specialty Construction Driller Hematology/Oncology 10/25/21 Appointment Specialist Relationship Specialty Start Date End Date Christina Azul MD [address] [place] [address] PCP - General Family Practice 07/03/21 Sofie Diana MD [address] [place] [address] Primary Staff Physician Cardiology 07/03/21 Verito Whelan MD [address] [place] [address] Referring Pulmonary Disease 10/04/21 Nina Grigsby MD [address] [facility] [place] [address] Physician Hematology/Oncology 10/25/21 Patricia Miller, SHEET METAL WORK FURNACE 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 [address] [facility] [place] [address] Nurse Practitioner Hematology/Oncology 10/25/21 Denita Rai, KERRY [address] [facility] [place] [address] Specialty Construction Driller Hematology/Oncology 10/25/21 Appointment Specialist Relationship Specialty Start Date End Date Christina Azul MD [address] [place] [address] PCP - General Family Practice 07/03/21 Sofie Diana MD [address] [place] [address] Primary Staff Physician Cardiology 07/03/21 Verito Whelan MD [address] [place] [address] Referring Pulmonary Disease 10/04/21 Nina Grigsby MD [address] [facility] [place] [address] Physician Hematology/Oncology 10/25/21 Patricia Miller, SHEET METAL WORK FURNACE 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 [address] [facility] [place] [address] Nurse Practitioner Hematology/Oncology 10/25/21 Denita Rai, KERRY [address] [facility] [place] [address] Specialty Construction Driller Hematology/Oncology 10/25/21 Appointment Specialist Relationship Specialty Start Date End Date Christina Azul MD [address] [place] [address] PCP - General Family Practice 07/03/21 Soife Diana MD [address] [place], [place] [id number] Primary Staff Physician Cardiology 07/03/21 Verito Whelan MD [address] [place] [address] Referring Pulmonary Disease 10/04/21 Nina Grigsby MD [address] [facility] [place] [address] Physician Hematology/Oncology 10/25/21 Patricia Miller, OZZIE.HEALTH OFFICER [address] [facility] [place] [address] Nurse Practitioner Hematology/Oncology 10/25/21 Denita Rai, KERRY [address] [facility] [place] [address] Specialty Construction Driller Hematology/Oncology 10/25/21 Appointment Specialist Relationship Specialty Start Date End Date Christina Azul MD [address] [place] [id number] PCP - General Family Practice 07/03/21 Sofie Diana MD [address] [place] [address] Primary Staff Physician Cardiology 07/03/21 Verito Whelan MD [address] [place] [address] Referring Pulmonary Disease 10/04/21 Nina Grigsby MD [address] [facility] [place] [address] Physician Hematology/Oncology 10/25/21 Patricia Miller, SHEET METAL WORK FURNACE 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 [address] [facility] [place] [address] Nurse Practitioner Hematology/Oncology 10/25/21 Denita Rai, KERRY [address] [place] [address] [place] [address] Specialty Construction Driller Hematology/Oncology 10/25/21 Appointment Specialist Relationship Specialty Start Date End Date Christina Azul MD [address] [place] [address] PCP - General Family Practice 07/03/21 Sofie Diana MD [address] [place] [address] Primary Staff Physician Cardiology 07/03/21 Verito Whelan MD [address] [place] [address] Referring Pulmonary Disease 10/04/21 Nina Grigsby MD [address] [facility] [place] [address] Physician Hematology/Oncology 10/25/21 Patricia Miller, SHEET METAL WORK FURNACE 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 [address] [facility] [place] [address] Nurse Practitioner Hematology/Oncology 10/25/21 Denita Rai, KERRY [address] [place] [address] [place] [address] Specialty Construction Driller Hematology/Oncology 10/25/21 Appointment Specialist Relationship Specialty Start Date End Date Christina Azul MD [address] [place] [address] PCP - General Family Practice 07/03/21 Sofie Diana MD [address] [place] [address] Primary Staff Physician Cardiology 07/03/21 Verito Whelan MD [address] [place], [place] [id number] Referring Pulmonary Disease 10/04/21 Nina Grigsby MD [address] [facility] [place] [address] Physician Hematology/Oncology 10/25/21 Patricia Miller, SHEET METAL WORK FURNACE 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 [address] [facility] [place] [address] Nurse Practitioner Hematology/Oncology 10/25/21 Denita Rai, RN [address] [facility] [place] [address] Specialty Construction Driller Hematology/Oncology 10/25/21 Appointment Specialist Relationship Specialty Start Date End Date Christina Azul MD [address] [place] [phone] PCP - General Family Practice 07/03/21 Sofie Diana MD [address] [place] [address] Primary Staff Physician Cardiology 07/03/21 Verito Whelan MD [address] [place], [place] 0054695 Referring Pulmonary Disease 10/04/21 Nina Grigsby MD [address] [facility] [place] [address] Physician Hematology/Oncology 10/25/21 Patricia Miller, SHEET METAL WORK FURNACE INSTALLER.[address] [place] [address] Nurse Practitioner Hematology/Oncology 10/25/21 Denita Rai, KERRY [address] [place] [address] [place] [address] Specialty Construction Driller Hematology/Oncology 10/25/21 Appointment Specialist Relationship Specialty Start Date End Date Christina Azul MD [address] [place] [address] PCP - General Family Practice 07/03/21 Sofie Diana MD [address] [place] [address] Primary Staff Physician Cardiology 07/03/21 Verito Whelan MD [address] [place] [address] Referring Pulmonary Disease 10/04/21 Nina Grigsby MD [address] [facility] [place] [address] Physician Hematology/Oncology 10/25/21 Patricia Miller, SHEET METAL WORK FURNACE INSTALLER.[address] [place] [address] Nurse Practitioner Hematology/Oncology 10/25/21 Denita Rai, KERRY [address] [facility] [place] [address] Specialty Construction Driller Hematology/Oncology 10/25/21 Appointment Specialist Relationship Specialty Start Date End Date Christina Azul MD [address] [place] [address] PCP - General Family Practice 07/03/21 Sofie Diana MD [address] [place] [address] Primary Staff Physician Cardiology 07/03/21 Verito Whelan MD [address] [place], [place] [id number] Referring Pulmonary Disease 10/04/21 Nina Grigsby MD [address] [facility] [place] [address] Physician Hematology/Oncology 10/25/21 Patricia Miller, SHEET METAL WORK FURNACE 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 [address] [facility] [place] [address] Nurse Practitioner Hematology/Oncology 10/25/21 Denita Rai, RN [address] [facility] [place] [address] Specialty Construction Driller Hematology/Oncology 10/25/21 Appointment Specialist Relationship Specialty Start Date End Date Christina Azul MD [address] [place] [phone] PCP - General Family Practice 07/03/21 Sofie Diana MD [address] [place] [address] Primary Staff Physician Cardiology 07/03/21 Verito Whelan MD [address] [place], [place] [id number] Referring Pulmonary Disease 10/04/21 Nina Grigsby MD [address] [facility] [place] [address] Physician Hematology/Oncology 10/25/21 Patricia Miller SHEET METAL WORK FURNACE 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 [address] [facility] [place] [address] Nurse Practitioner Hematology/Oncology 10/25/21 Denita Rai, RN [address] [facility] [place] [address] Specialty Construction Driller Hematology/Oncology 10/25/21 Appointment Specialist Relationship Specialty Start Date End Date Christina Azul MD [address] [place] [address] PCP - General Family Practice 07/03/21 Sofie Diana MD [address] [place] [address] Primary Staff Physician Cardiology 07/03/21 Verito Whelan MD [address] [place] [address] Referring Pulmonary Disease 10/04/21 Nina Grigsby MD [address] [facility] [place] [address] Physician Hematology/Oncology 10/25/21 Patricia Miller, SHEET METAL WORK FURNACE 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 [address] [facility] [place] [address] Nurse Practitioner Hematology/Oncology 10/25/21 Denita Rai, KERRY [address] [facility] [place] [address] Specialty Construction Driller Hematology/Oncology 10/25/21 Appointment Specialist Relationship Specialty Start Date End Date Christina Azul MD [address] [place] [address] PCP - General Family Practice 07/03/21 Sofie Diana MD [address] [place] [address] Primary Staff Physician Cardiology 07/03/21 Verito Whelan MD [address] [place] [address] Referring Pulmonary Disease 10/04/21 Nina Grigsby MD [address] [facility] [place] [address] Physician Hematology/Oncology 10/25/21 Patricia Miller, SHEET METAL WORK FURNACE 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 [address] [facility] [place] [address] Nurse Practitioner Hematology/Oncology 10/25/21 Denita Rai, RN [address] [facility] [place] [address] Specialty Construction Driller Hematology/Oncology 10/25/21 Team Status: Inactive Member Role Status Dates Cristy Swann PA-C Attending Provider Active PHYSICIAN NO FAMILY Primary Care Provider Active Team Status: Active Member Role Status Dates PHYSICIAN NO FAMILY Primary Care Provider Active Appointment Specialist Relationship Specialty Start Date End Date Christina Azul MD [address] [place] [address] PCP - General Family Practice 07/03/21 Sofie Diana MD [address] [place] [address] Primary Staff Physician Cardiology 07/03/21 Verito Whelan MD [address] [place] [address] Referring Pulmonary Disease 10/04/21 Nina Grigsby MD [address] [facility] [place] [address] Physician Hematology/Oncology 10/25/21 Patricia Miller, SHEET METAL WORK FURNACE 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 [address] [facility] [place] [address] Nurse Practitioner Hematology/Oncology 10/25/21 Denita Rai, KERRY [address] [facility] [place] [address] Specialty Construction Driller Hematology/Oncology 10/25/21 Appointment Specialist Relationship Specialty Start Date End Date Christina Azul MD [address] [place] [phone] PCP - General Family Practice 07/03/21 Sofie Diana MD [address] [place] [address] Primary Staff Physician Cardiology 07/03/21 Verito Whelan MD [address] [place], [place] [id number] Referring Pulmonary Disease 10/04/21 Nina Grigsby MD [address] [facility] [place] [address] Physician Hematology/Oncology 10/25/21 Patricia Miller, SHEET METAL WORK FURNACE 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 [address] [facility] [place] [address] Nurse Practitioner Hematology/Oncology 10/25/21 Denita Rai, KERRY [address] [facility] [place] [address] Specialty Construction Driller Hematology/Oncology 10/25/21 Appointment Specialist Relationship Specialty Start Date End Date Christina Azul MD [address] [place] [phone] PCP - General Family Practice 07/03/21 Sofie Diana MD [address] [place] [address] Primary Staff Physician Cardiology 07/03/21 Verito Whelan MD [address] [place] [address] Referring Pulmonary Disease 10/04/21 Nina Grigsby MD [address] [facility] [place] [address] Physician Hematology/Oncology 10/25/21 Patricia Miller, SHEET METAL WORK FURNACE 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 [address] [facility] [place] [address] Nurse Practitioner Hematology/Oncology 10/25/21 Denita Rai, RN [address] [facility] [place] [address] Specialty Construction Driller Hematology/Oncology 10/25/21 Appointment Specialist Relationship Specialty Start Date End Date Christina Azul MD [address] [place] [address] PCP - General Family Practice 07/03/21 Sofie Diana MD [address] [place] [address] Primary Staff Physician Cardiology 07/03/21 eVrito Whelan MD [address] [place] [address] Referring Pulmonary Disease 10/04/21 Nina Grigsby MD [address] [facility] [place] [address] Physician Hematology/Oncology 10/25/21 Patricia Miller, SHEET METAL WORK FURNACE 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 [address] [facility] [place] [address] Nurse Practitioner Hematology/Oncology 10/25/21 Denita Rai, RN [address] [facility] [place] [address] Specialty Construction Driller Hematology/Oncology 10/25/21 Appointment Specialist Relationship Specialty Start Date End Date Christina Azul MD [address] [place] [address] PCP - General Family Medicine 07/03/21 Sofie Diana MD [address] [place] [address] Primary Staff Physician Cardiology 07/03/21 Verito Whelan MD [address] [place] [address] Referring Pulmonary Disease 10/04/21 Nina Grigsby MD [address] [facility] [place] [address] Physician Hematology/Oncology 10/25/21 Patricia Miller, OZZIE.HEALTH OFFICER [address] [facility] [place] [address] Nurse Practitioner Hematology/Oncology 10/25/21 Denita Rai, KERRY [address] [facility] [place] [address] Specialty Construction Driller Hematology/Oncology 10/25/21 Appointment Specialist Relationship Specialty Start Date End Date Christina Azul MD [address] [place] [address] PCP - General Family Medicine 07/03/21 Sofie Diana MD [address] [place] [address] Primary Staff Physician Cardiology 07/03/21 Verito Whelan MD [address] [place] [address] Referring Pulmonary Disease 10/04/21 Nina Grigsby MD [address] [facility] [place] [address] Physician Hematology/Oncology 10/25/21 Patricia Miller, SHEET METAL WORK FURNACE 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 [address] [facility] [place] [address] Nurse Practitioner Hematology/Oncology 10/25/21 Denita Rai, KERRY [address] [facility] [place] [address] Specialty Construction Driller Hematology/Oncology 10/25/21 Appointment Specialist Relationship Specialty Start Date End Date Christina Azul MD [address] [place] [address] PCP - General Family Medicine 07/03/21 Sofie Diana MD [address] [place] [address] Primary Staff Physician Cardiology 07/03/21 Verito Whelan MD [address] [place] [address] Referring Pulmonary Disease 10/04/21 Nina Grigsby MD [address] [facility] [place] [address] Physician Hematology/Oncology 10/25/21 Patricia Miller, SHEET METAL WORK FURNACE 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 [address] [facility] [place] [address] Nurse Practitioner Hematology/Oncology 10/25/21 Denita Rai, KERRY [address] [facility] [place] [address] Specialty Construction Driller Hematology/Oncology 10/25/21 Appointment Specialist Relationship Specialty Start Date End Date Christina Azul MD [address] [place] [address] PCP - General Family Medicine 07/03/21 Sofie Diana MD [address] [place] [address] Primary Staff Physician Cardiology 07/03/21 Verito Whelan MD [address] [place] [address] Referring Pulmonary Disease 10/04/21 Nina Grigsby MD [address] [facility] [place] [address] Physician Hematology/Oncology 10/25/21 Patricia Miller, SHEET METAL WORK FURNACE 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 [address] [facility] [place] [address] Nurse Practitioner Hematology/Oncology 10/25/21 Denita Rai, KERRY [address] [facility] [place] [address] Specialty Construction Driller Hematology/Oncology 10/25/21 Appointment Specialist Relationship Specialty Start Date End Date Christina Azul MD [address] [place] [phone] PCP - General Family Medicine 07/03/21 Sofie Diana MD [address] [place] [address] Primary Staff Physician Cardiology 07/03/21 Verito Whelan MD [address] [place] [address] Referring Pulmonary Disease 10/04/21 Nina Grigsby MD [address] [facility] [place] [address] Physician Hematology/Oncology 10/25/21 Patricia Miller, SHEET METAL WORK FURNACE INSTALLER.[address] [place] [address] Nurse Practitioner Hematology/Oncology 10/25/21 Denita Rai, RN [address] [facility] [place] [address] Specialty Construction Driller Hematology/Oncology 10/25/21 Appointment Specialist Relationship Specialty Start Date End Date Christina Azul MD [address] [place] [address] PCP - General Family Medicine 07/03/21 Sofie Diana MD [address] [place] [address] Primary Staff Physician Cardiology 07/03/21 Verito Whelan MD [address] [place] [address] Referring Pulmonary Disease 10/04/21 Nina Grigsby MD [address] [facility] [place] [address] Physician Hematology/Oncology 10/25/21 Patricia Miller, SHEET METAL WORK FURNACE INSTALLER.[address] [place] [address] Nurse Practitioner Hematology/Oncology 10/25/21 Denita Rai, KERRY [address] [facility] [place] [address] Specialty Construction Driller Hematology/Oncology 10/25/21 Appointment Specialist Relationship Specialty Start Date End Date Christina Azul MD [address] [place] [address] PCP - General Family Medicine 07/03/21 Sofie Diana MD [address] [place] [address] Primary Staff Physician Cardiology 07/03/21 Verito Whelan MD [address] [facility] [place] [address] Referring Pulmonary Disease 10/04/21 Nina Grigsby MD [address] [facility] [place] [address] Physician Hematology/Oncology 10/25/21 Patricia Miller, SHEET METAL WORK FURNACE 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 [address] [facility] [place] [address] Nurse Practitioner Hematology/Oncology 10/25/21 Denita Rai, KERRY [address] [facility] [place] [address] Specialty Construction Driller Hematology/Oncology 10/25/21 Appointment Specialist Relationship Specialty Start Date End Date Christina Azul MD [address] [place] [address] PCP - General Family Medicine 07/03/21 Sofie Diana MD [address] [place] [address] Primary Staff Physician Cardiology 07/03/21 Verito Whelan MD [address] [place] [address] Referring Pulmonary Disease 10/04/21 Nina Grigsby MD [address] [facility] [place] [address] Physician Hematology/Oncology 10/25/21 Patricia Miller, SHEET METAL WORK FURNACE 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 [address] [place] [address] [place] [address] Nurse Practitioner Hematology/Oncology 10/25/21 Denita Rai, KERRY [address] [place] [address] [place] [address] Specialty Construction Driller Hematology/Oncology 10/25/21 Appointment Specialist Relationship Specialty Start Date End Date Christina Azul MD [address] [place] [address] PCP - General Family Medicine 07/03/21 Sofie Diana MD [address] [place] [address] Primary Staff Physician Cardiology 07/03/21 Verito Whelan MD [address] [place] [address] Referring Pulmonary Disease 10/04/21 Nina Grigsby MD [address] [facility] [place] [address] Physician Hematology/Oncology 10/25/21 Patricia Miller, SHEET METAL WORK FURNACE INSTALLER.[facility] [address] [facility] [place] [address] Nurse Practitioner Hematology/Oncology 10/25/21 Denita Rai, KERRY [address] [place] [address] [place] [address] Specialty Construction Driller Hematology/Oncology 10/25/21 Appointment Specialist Relationship Specialty Start Date End Date Christina Azul MD [address] [place] [address] PCP - General Family Medicine 07/03/21 Sofie Diana MD [address] [place] [address] Primary Staff Physician Cardiology 07/03/21 Verito Whelan MD [address] [place] [address] Referring Pulmonary Disease 10/04/21 Nina Grigsby MD [address] [facility] [place] [address] Physician Hematology/Oncology 10/25/21 Patricia Miller, SHEET METAL WORK FURNACE 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 [address] [facility] [place] [address] Nurse Practitioner Hematology/Oncology 10/25/21 Denita Rai, KERRY [address] [place] [address] [place] [address] Specialty Construction Driller Hematology/Oncology 10/25/21 Appointment Specialist Relationship Specialty Start Date End Date Christina Azul MD [address] [place] [address] PCP - General Family Medicine 07/03/21 Sofie Diana MD [address] [place] [address] Primary Staff Physician Cardiology 07/03/21 Verito Whelan MD [address] [place] [address] Referring Pulmonary Disease 10/04/21 Nina Grigsby MD [address] [facility] [place] [address] Physician Hematology/Oncology 10/25/21 Patricia Miller, SHEET METAL WORK FURNACE 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 [address] [facility] [place] [address] Nurse Practitioner Hematology/Oncology 10/25/21 Denita Rai, KERRY [address] [facility] [place] [address] Specialty Construction Driller Hematology/Oncology 10/25/21 Appointment Specialist Relationship Specialty Start Date End Date Christina Azul MD [address] [place] [id number] PCP - General Family Medicine 07/03/21 Sofie Diana MD [address] [place] [address] Primary Staff Physician Cardiology 07/03/21 [place] [address] [place] [address] Referring Pulmonary Disease 10/04/21 Nina Grigsby MD [address] [facility] [place] [address] Physician Hematology/Oncology 10/25/21 Patricia Miller, SHEET METAL WORK FURNACE 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 [address] [facility] [place] [address] Nurse Practitioner Hematology/Oncology 10/25/21 Denita Rai, RN [address] [facility] [place] [address] Specialty Construction Driller Hematology/Oncology 10/25/21 Appointment Specialist Relationship Specialty Start Date End Date Christina Azul MD [address] [place] [id number] PCP - General Family Medicine 07/03/21 Sofie Diana MD [address] [place] [address] Primary Staff Physician Cardiology 07/03/21 Verito Whelan MD [address] [place] [address] Referring Pulmonary Disease 10/04/21 Nina Grigsby MD [address] [facility] [place] [address] Physician Hematology/Oncology 10/25/21 Patricia Miller, SHEET METAL WORK FURNACE 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 [address] [facility] [place] [address] Nurse Practitioner Hematology/Oncology 10/25/21 Denita Rai, RN [address] [facility] [place] [address] Specialty Construction Driller Hematology/Oncology 10/25/21 Appointment Specialist Relationship Specialty Start Date End Date Christina Azul MD [address] [place] [address] PCP - General Family Medicine 07/03/21 Sofie Diana MD [address] [place] [address] Primary Staff Physician Cardiology 07/03/21 Verito Whelan MD [address] [place] [address] Referring Pulmonary Disease 10/04/21 Nina Grigsby MD [address] [facility] [place] [address] Physician Hematology/Oncology 10/25/21 Patricia Miller, SHEET METAL WORK FURNACE 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 [address] [facility] [place] [address] Nurse Practitioner Hematology/Oncology 10/25/21 Denita Rai, RN [address] [facility] [place] [address] Specialty Construction Driller Hematology/Oncology 10/25/21 Appointment Specialist Relationship Specialty Start Date End Date Christina Azul MD [address] [place] [address] PCP - General Family Medicine 07/03/21 Sofie Diana MD [address] [place] [address] Primary Staff Physician Cardiology 07/03/21 Verito Whelan MD [address] [place] [address] Referring Pulmonary Disease 10/04/21 Nina Grigsby MD [address] [place] [address] [place] [address] Physician Hematology/Oncology 10/25/21 Patricia Miller APRN.HEALTH OFFICER [address] [facility] [place] [address] Nurse Practitioner Hematology/Oncology 10/25/21 Denita Rai, RN [address] [facility] [place] [address] Specialty Construction Driller Hematology/Oncology 10/25/21 Appointment Specialist Relationship Specialty Start Date End Date Christina Azul MD [address] [place] [id number] PCP - General Family Medicine 07/03/21 Sofie Diana MD [address] [place] [address] Primary Staff Physician Cardiology 07/03/21 Verito Whelan MD [address] [place] [address] Referring Pulmonary Disease 10/04/21 Nina Grigsby MD [address] [facility] [place] [address] Physician Hematology/Oncology 10/25/21 Patricia Miller, SHEET METAL WORK FURNACE 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 [address] [facility] [place] [address] Nurse Practitioner Hematology/Oncology 10/25/21 Denita Rai, KERRY [address] [facility] [place] [address] Specialty Construction Driller Hematology/Oncology 10/25/21 Appointment Specialist Relationship Specialty Start Date End Date Christina Azul MD [address] [place] [address] PCP - General Family Medicine 07/03/21 Sofie Diana MD [address] [place] [address] Primary Staff Physician Cardiology 07/03/21 Verito Whelan MD [address] [place] [address] Referring Pulmonary Disease 10/04/21 Nina Grigsby MD [address] [facility] [place] [address] Physician Hematology/Oncology 10/25/21 Patricia Miller, SHEET METAL WORK FURNACE 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 [address] [facility] [place] [address] Nurse Practitioner Hematology/Oncology 10/25/21 Denita Rai, KERRY [address] [facility] [place] [address] Specialty Construction Driller Hematology/Oncology 10/25/21 Appointment Specialist Relationship Specialty Start Date End Date Christina Azul MD [address] [place] [address] PCP - General Family Medicine 07/03/21 Sofie Diana MD [address] [place] [address] Primary Staff Physician Cardiology 07/03/21 Verito Whelan MD [address] [place] [address] Referring Pulmonary Disease 10/04/21 Nina Grigsby MD [address] [facility] [place] [address] Physician Hematology/Oncology 10/25/21 Patricia Miller, SHEET METAL WORK FURNACE 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 [address] [facility] [place] [address] Nurse Practitioner Hematology/Oncology 10/25/21 Denita Rai, KERRY [address] [facility] [place] [address] Specialty Construction Driller Hematology/Oncology 10/25/21 Appointment Specialist Relationship Specialty Start Date End Date Christina Azul MD [address] [place] [address] PCP - General Family Medicine 07/03/21 Sofie Diana MD [address] [place] [address] Primary Staff Physician Cardiology 07/03/21 Verito Whelan MD [address] [place] [address] Referring Pulmonary Disease 10/04/21 Nina Grigsby MD [address] [facility] [place] [address] Physician Hematology/Oncology 10/25/21 Patricia Miller, SHEET METAL WORK FURNACE 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 [address] [facility] [place] [address] Nurse Practitioner Hematology/Oncology 10/25/21 Denita Rai, KERRY [address] [facility] [place] [address] Specialty Construction Driller Hematology/Oncology 10/25/21 Appointment Specialist Relationship Specialty Start Date End Date Christina Azul MD [address] [place] [phone] PCP - General Family Medicine 07/03/21 Sofie Diana MD [address] [place], [place] 6508[address] Primary Staff Physician Cardiology 07/03/21 Verito Whelan MD [address] [place] [address] Referring Pulmonary Disease 10/04/21 Nina Grigsby MD [address] [facility] [place] [address] Physician Hematology/Oncology 10/25/21 Patricia Miller, OZZIE.[facility] [address] [facility] [place] [address] Nurse Practitioner Hematology/Oncology 10/25/21 Denita Rai, KERRY [address] [facility] [place] [address] Specialty Construction Driller Hematology/Oncology 10/25/21 Appointment Specialist Relationship Specialty Start Date End Date Christina Azul MD [address] [place] [phone] PCP - General Family Medicine 07/03/21 Sofie Diana MD [address] [place] [address] Primary Staff Physician Cardiology 07/03/21 Verito Whelan MD [address] [place] [address] Referring Pulmonary Disease 10/04/21 Nina Grigsby MD [address] [facility] [place] [address] Physician Hematology/Oncology 10/25/21 Patricia Miller, SHEET METAL WORK FURNACE 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 [address] [facility] [place] [address] Nurse Practitioner Hematology/Oncology 10/25/21 Denita Rai, KERRY [address] [place] [address] [place] [address] Specialty Construction Driller Hematology/Oncology 10/25/21 Appointment Specialist Relationship Specialty Start Date End Date Christina Azul MD [address] [place] [address] PCP - General Family Medicine 07/03/21 Sofie Diana MD [address] [place] [address] Primary Staff Physician Cardiology 07/03/21 Verito Whelan MD [address] [place] [address] Referring Pulmonary Disease 10/04/21 Nina Grigsby MD [address] [facility] [place] [address] Physician Hematology/Oncology 10/25/21 Patricia Miller, SHEET METAL WORK FURNACE 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 [address] [facility] [place] [address] Nurse Practitioner Hematology/Oncology 10/25/21 Denita Rai, KERRY [address] [place] [address] [place] [address] Specialty Construction Driller Hematology/Oncology 10/25/21 Appointment Specialist Relationship Specialty Start Date End Date Christina Azul MD [address] [place] [id number] PCP - General Family Medicine 07/03/21 Sofie Diana MD [address] [place] [address] Primary Staff Physician Cardiology 07/03/21 Verito Whelan MD [address] [place], [place] [id number] Referring Pulmonary Disease 10/04/21 Nina Grigsby MD [address] [place] [address] [place] [address] Physician Hematology/Oncology 10/25/21 Patricia Miller, SHEET METAL WORK FURNACE 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 [address] [facility] [place] [address] Nurse Practitioner Hematology/Oncology 10/25/21 Denita Rai, KERRY [address] [facility] [place] [address] Specialty Construction Driller Hematology/Oncology 10/25/21 Appointment Specialist Relationship Specialty Start Date End Date Christina Azul MD [address] [place] [phone] PCP - General Family Medicine 07/03/21 Sofie Diana MD [address] [place] [address] Primary Staff Physician Cardiology 07/03/21 Verito Whelan MD [address] [place], [place] [id number] Referring Pulmonary Disease 10/04/21 Nina Grigsby MD [address] [facility] [place] [address] Physician Hematology/Oncology 10/25/21 Patricia Miller, SHEET METAL WORK FURNACE INSTALLER.[address] [place] [address] Nurse Practitioner Hematology/Oncology 10/25/21 Denita Rai, KERRY [address] [place] [address] [place] [address] Specialty Construction Driller Hematology/Oncology 10/25/21 Appointment Specialist Relationship Specialty Start Date End Date Christina Azul MD [address] [place] [address] PCP - General Family Medicine 07/03/21 Sofie Diana MD [address] [place] [address] Primary Staff Physician Cardiology 07/03/21 Verito Whelan MD [address] [place] [address] Referring Pulmonary Disease 10/04/21 Nina Grigsby MD [address] [facility] [place] [address] Physician Hematology/Oncology 10/25/21 Patricia Miller, SHEET METAL WORK FURNACE INSTALLER.[address] [place] [address] Nurse Practitioner Hematology/Oncology 10/25/21 Denita Rai, KERRY [address] [facility] [place] [address] Specialty Construction Driller Hematology/Oncology 10/25/21 Appointment Specialist Relationship Specialty Start Date End Date Christina Azul MD [address] [place] [address] PCP - General Family Medicine 07/03/21 Sofie Diana MD [address] [place] [address] Primary Staff Physician Cardiology 07/03/21 Verito Whelan MD [address] [place] [address] Referring Pulmonary Disease 10/04/21 Nina Grigsby MD [address] [facility] [place] [address] Physician Hematology/Oncology 10/25/21 Patricia Miller, SHEET METAL WORK FURNACE 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 [address] [facility] [place] [address] Nurse Practitioner Hematology/Oncology 10/25/21 Denita Rai, RN [address] [facility] [place] [address] Specialty Construction Driller Hematology/Oncology 10/25/21 Appointment Specialist Relationship Specialty Start Date End Date Christina Azul MD [address] [place] [address] PCP - General Family Medicine 07/03/21 Sofie Diana MD [address] [place] [address] Primary Staff Physician Cardiology 07/03/21 Verito Whelan MD [address] [place] [address] Referring Pulmonary Disease 10/04/21 Nina Grigsby MD [address] [facility] [place] [address] Physician Hematology/Oncology 10/25/21 Patricia Miller, SHEET METAL WORK FURNACE 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 [address] [facility] [place] [address] Nurse Practitioner Hematology/Oncology 10/25/21 Denita Rai, RN [address] [facility] [place] [address] Specialty Construction Driller Hematology/Oncology 10/25/21 Team Status: Active Member Role Status Dates Christina Azul MD Primary Care Provider Active Team Status: Inactive Member Role Status Dates Christina Azul MD Primary Care Provider Active Sapna Angulo APRN Emergency Provider Active Appointment Specialist Relationship Specialty Start Date End Date Christina Azul MD [address] [place] [address] PCP - General Family Medicine 07/03/21 oSfie Diana MD [address] [place] [address] Primary Staff Physician Cardiology 07/03/21 Verito Whelan MD [address] [place] [address] Referring Pulmonary Disease 10/04/21 Nina Grigsby MD [address] [facility] [place] [address] Physician Hematology/Oncology 10/25/21 Patricia Miller, SHEET METAL WORK FURNACE 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 [address] [facility] [place] [address] Nurse Practitioner Hematology/Oncology 10/25/21 Denita Rai, KERRY [address] [facility] [place] [address] Specialty Construction Driller Hematology/Oncology 10/25/21 Appointment Specialist Relationship Specialty Start Date End Date Christina Azul MD [address] [place] [address] PCP - General Family Medicine 07/03/21 Sofie Diana MD [address] [place] [address] Primary Staff Physician Cardiology 07/03/21 Verito Whelan MD [address] [place] [address] Referring Pulmonary Disease 10/04/21 Nina Grigsby MD [address] [place] [address] [place] [address] Physician Hematology/Oncology 10/25/21 Patricia Miller, OZZIE.HEALTH OFFICER [address] [facility] [place] [address] Nurse Practitioner Hematology/Oncology 10/25/21 Denita Rai, RN [address] [facility] [place] [address] Specialty Construction Driller Hematology/Oncology 10/25/21 Minna Madrigal LSW Test Consultant 01/08/23 Appointment Specialist Relationship Specialty Start Date End Date Christina Azul MD [address] [place] [address] PCP - General Family Medicine 07/03/21 Sofie Diana MD [address] [place] [address] Primary Staff Physician Cardiology 07/03/21 Verito Whelan MD [address] [place] [address] Referring Pulmonary Disease 10/04/21 Nina Grigsby MD [address] [facility] [place] [address] Physician Hematology/Oncology 10/25/21 Patricia Miller, SHEET METAL WORK FURNACE 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 [address] [facility] [place] [address] Nurse Practitioner Hematology/Oncology 10/25/21 Denita Rai, KERRY [address] [facility] [place] [address] Specialty Construction Driller Hematology/Oncology 10/25/21 Minna Madrigal LSW Test Consultant 01/08/23 Appointment Specialist Relationship Specialty Start Date End Date Christina Azul MD [address] [place] [address] PCP - General Family Medicine 07/03/21 Sofie Diana MD [address] [place] [address] Primary Staff Physician Cardiology 07/03/21 Verito Whelan MD [address] [place] [address] Referring Pulmonary Disease 10/04/21 Nina Grigsby MD [address] [facility] [place] [address] Physician Hematology/Oncology 10/25/21 Patricia Miller, SHEET METAL WORK FURNACE 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 [address] [facility] [place] [address] Nurse Practitioner Hematology/Oncology 10/25/21 Denita Rai, KERRY [address] [facility] [place] [address] Specialty Construction Driller Hematology/Oncology 10/25/21 Minna Madrigal LSW Test Consultant 01/08/23 Appointment Specialist Relationship Specialty Start Date End Date Christina Azul MD [address] [place] [address] PCP - General Family Medicine 07/03/21 Sofie Diana MD [address] [place] [address] Primary Staff Physician Cardiology 07/03/21 Verito Whelan MD [address] [place], [place] [address]246395 Referring Pulmonary Disease 10/04/21 Nina Grigsby MD [address] [facility] [place] [address] Physician Hematology/Oncology 10/25/21 Patricia Miller APRN.[facility] [address] [facility] [place] [address] Nurse Practitioner Hematology/Oncology 10/25/21 Denita Rai, KERRY [address] [facility] [place] [address] Specialty Construction Driller Hematology/Oncology 10/25/21 Minna Madrigal LSW Test Consultant 01/08/23 Appointment Specialist Relationship Specialty Start Date End Date Christina Azul MD [address] [place] [address] PCP - General Family Medicine 07/03/21 Sofie Diana MD [address] [place] [address] Primary Staff Physician Cardiology 07/03/21 Verito Whelan MD [address] [place] [address] Referring Pulmonary Disease 10/04/21 Nina Grigsby MD [address] [facility] [place] [address] Physician Hematology/Oncology 10/25/21 Patricia Miller, SHEET METAL WORK FURNACE 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 [address] [place] [address] [place] [address] Nurse Practitioner Hematology/Oncology 10/25/21 Denita Rai, RN [address] [facility] [place] [address] Specialty Construction Driller Hematology/Oncology 10/25/21 Minna Madrigal LSW Test Consultant 01/08/23 Appointment Specialist Relationship Specialty Start Date End Date Christina Azul MD [address] [place] [address] PCP - General Family Medicine 07/03/21 Sofie Diana MD [address] [place] [address] Primary Staff Physician Cardiology 07/03/21 Verito Whelan MD [address] [place] [address] Referring Pulmonary Disease 10/04/21 Nina Grigsby MD [address] [place] [address] [place] [address] Physician Hematology/Oncology 10/25/21 Patricia Miller, SHEET METAL WORK FURNACE 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 [address] [place] [address] [place] [address] Nurse Practitioner Hematology/Oncology 10/25/21 Denita Rai, KERRY [address] [facility] [place] [address] Specialty Construction Driller Hematology/Oncology 10/25/21 Minna Madrigal LSW Test Consultant 01/08/23 Appointment Specialist Relationship Specialty Start Date End Date Christina Azul MD [address] [place] [address] PCP - General Family Medicine 07/03/21 Sofie Diana MD [address] [place] [address] Primary Staff Physician Cardiology 07/03/21 Verito Whelan MD [address] [place], [place] [address]556[address] Referring Pulmonary Disease 10/04/21 Nina Grigsby MD [address] [facility] [address] [place] [id number] Physician Hematology/Oncology 10/25/21 Patricia Miller APRN.HEALTH OFFICER [address] [place] [address] [place] [address] Nurse Practitioner Hematology/Oncology 10/25/21 Denita Rai, KERRY [address] [facility] [place] [address] Specialty Construction Driller Hematology/Oncology 10/25/21 Minna Madrigal LSW Test Consultant 01/08/23 Appointment Specialist Relationship Specialty Start Date End Date Christina Azul MD [address] [place] [address] PCP - General Family Medicine 07/03/21 Sofie Diana MD [address] [place] [address] Primary Staff Physician Cardiology 07/03/21 Verito Whelan MD [address] [place] [address] Referring Pulmonary Disease 10/04/21 Nina Grigsby MD [address] [place] [address] [place] [address] Physician Hematology/Oncology 10/25/21 Patricia Miller APRN.HEALTH OFFICER [address] [facility] [place] [address] Nurse Practitioner Hematology/Oncology 10/25/21 Denita Rai, RN [address] [place] [address] [place] [address] Specialty Construction Driller Hematology/Oncology 10/25/21 Minna Madrigal LSW Test Consultant 01/08/23 Appointment Specialist Relationship Specialty Start Date End Date Christina Azul MD [address] [place] [address] PCP - General Family Medicine 07/03/21 Sofie Diana MD [address] [place] [id number] Primary Staff Physician Cardiology 07/03/21 Verito Whelan MD [address] [facility] [place] [address] Referring Pulmonary Disease 10/04/21 Nina Grigsby MD [address] [facility] [place] [address] Physician Hematology/Oncology 10/25/21 Patricia Miller SHEET METAL WORK FURNACE 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 [address] [facility] [place] [address] Nurse Practitioner Hematology/Oncology 10/25/21 Denita Rai, KERRY [address] [facility] [place] [address] Specialty Construction Driller Hematology/Oncology 10/25/21 Minna Madrigal LSW Test Consultant 01/08/23 Appointment Specialist Relationship Specialty Start Date End Date Christina Azul MD [address] [place] [address] PCP - General Family Medicine 07/03/21 Sofie Diana MD [address] [place], [place] [id number] Primary Staff Physician Cardiology 07/03/21 Verito Whelan MD [address] [place], [place] [id number] Referring Pulmonary Disease 10/04/21 Nina Grigsby MD [address] [facility] [place] [address] Physician Hematology/Oncology 10/25/21 Patricia Miller, SHEET METAL WORK FURNACE 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 [address] [facility] [place] [address] Nurse Practitioner Hematology/Oncology 10/25/21 Denita Rai, KERRY [address] [facility] [place] [address] Specialty Construction Driller Hematology/Oncology 10/25/21 Minna Madrigal LSW Test Consultant 01/08/23 Appointment Specialist Relationship Specialty Start Date End Date Christina Azul MD [address] [place] [address] PCP - General Family Medicine 07/03/21 Sofie Diana MD [address] [place] [address] Primary Staff Physician Cardiology 07/03/21 Verito Whelan MD [address] [place] [address] Referring Pulmonary Disease 10/04/21 Nina Grigsby MD [address] [place] [address] [place] [address] Physician Hematology/Oncology 10/25/21 Patricia Miller APRN.HEALTH OFFICER [address] [place] [address] [place] [address] Nurse Practitioner Hematology/Oncology 10/25/21 Denita Rai, KERRY [address] [place] [address] [place] [address] Specialty Construction Driller Hematology/Oncology 10/25/21 Minna Madrigal LSW Test Consultant 01/08/23 Appointment Specialist Relationship Specialty Start Date End Date Christina Azul MD [address] [place] [address] PCP - General Family Medicine 07/03/21 Sofie Diana MD [address] [place] [address] Primary Staff Physician Cardiology 07/03/21 Verito Whelan MD [address] [place] [address] Referring Pulmonary Disease 10/04/21 Nina Grigsby MD [address] [place] [address] [place] [address] Physician Hematology/Oncology 10/25/21 Patricia Miller, SHEET METAL WORK FURNACE 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 [address] [place] [address] [place] [address] Nurse Practitioner Hematology/Oncology 10/25/21 Denita Rai, KERRY [address] [place] [address] [place] [address] Specialty Construction Driller Hematology/Oncology 10/25/21 Minna Madrigal LSW Test Consultant 01/08/23 Appointment Specialist Relationship Specialty Start Date End Date Christina Azul MD [address] [place] [address] PCP - General Family Medicine 07/03/21 Sofie Diana MD [address] [place] [address] Primary Staff Physician Cardiology 07/03/21 Verito Whelan MD [address] [place] [address] Referring Pulmonary Disease 10/04/21 Nina Grigsby MD [address] [place] [address] [place] [address] Physician Hematology/Oncology 10/25/21 Patricia Miller, SHEET METAL WORK FURNACE 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 [address] [place] [address] [place] [address] Nurse Practitioner Hematology/Oncology 10/25/21 Denita Rai, KERRY [address] [facility] [place] [address] Specialty Construction Driller Hematology/Oncology 10/25/21 Minna Madrigal LSW Test Consultant 01/08/23 Appointment Specialist Relationship Specialty Start Date End Date Christina Azul MD [address] [place] [id number] PCP - General Family Medicine 07/03/21 Sofie Diana MD [address] [place] [id number] Primary Staff Physician Cardiology 07/03/21 Verito Whelan MD [address] [place] [id number] Referring Pulmonary Disease 10/04/21 Nina Grigsby MD [address] [place] [address] [place] [address] Physician Hematology/Oncology 10/25/21 Patricia Miller APRN.HEALTH OFFICER [address] [place] [address] [place] [address] Nurse Practitioner Hematology/Oncology 10/25/21 Denita Rai, KERRY [address] [facility] [place] [address] Specialty Construction Driller Hematology/Oncology 10/25/21 Minna Madirgal LSW Test Consultant 01/08/23 Appointment Specialist Relationship Specialty Start Date End Date Christina Azul MD [address] [place] [address] PCP - General Family Medicine 07/03/21 Sofie Diana MD [address] [place] [address] Primary Staff Physician Cardiology 07/03/21 Veirto Whelan MD [address] [place] [address] Referring Pulmonary Disease 10/04/21 Nina Grigsby MD [address] [facility] [place] [address] Physician Hematology/Oncology 10/25/21 Patricia Miller APRN.HEALTH OFFICER [address] [facility] [place] [address] Nurse Practitioner Hematology/Oncology 10/25/21 Denita Rai, KERRY [address] [facility] [place] [address] Specialty Construction Driller Hematology/Oncology 10/25/21 Minna Madrigal LSW Test Consultant 01/08/23 Appointment Specialist Relationship Specialty Start Date End Date Christina Azul MD [address] [place] [address] PCP - General Family Medicine 07/03/21 Sofie Diana MD [address] [place] [address] Primary Staff Physician Cardiology 07/03/21 Verito Whelan MD [address] [place] [address] Referring Pulmonary Disease 10/04/21 Nina Grigsby MD [address] [facility] [place] [address] Physician Hematology/Oncology 10/25/21 Patricia Miller, SHEET METAL WORK FURNACE 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 [address] [facility] [place] [address] Nurse Practitioner Hematology/Oncology 10/25/21 Denita Rai, KERRY [address] [facility] [place] [address] Specialty Construction Driller Hematology/Oncology 10/25/21 Minna Madrigal LSW Test Consultant 01/08/23 Appointment Specialist Relationship Specialty Start Date End Date Christina Azul MD [address] [place] [address] PCP - General Family Medicine 07/03/21 Sofie Diana MD [address] [place] [address] Primary Staff Physician Cardiology 07/03/21 Verito Whelan MD [address] [place] [address] Referring Pulmonary Disease 10/04/21 Nina Grigsby MD [address] [facility] [place] [address] Physician Hematology/Oncology 10/25/21 Patricia Miller, SHEET METAL WORK FURNACE 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 [address] [facility] [place] [address] Nurse Practitioner Hematology/Oncology 10/25/21 Denita Rai, RN [address] [facility] [place] [address] Specialty Construction Driller Hematology/Oncology 10/25/21 Minna Madrigal LSW Test Consultant 01/08/23 Appointment Specialist Relationship Specialty Start Date End Date Christina Azul MD [address] [place] [address] PCP - General Family Medicine 07/03/21 Sofie Diana MD [address] [place], [place] [id number] Primary Staff Physician Cardiology 07/03/21 Verito Whelan MD [address] [place], [place] [phone] Referring Pulmonary Disease 10/04/21 Nina Grigsby MD [address] [place] [address] [place] [address] Physician Hematology/Oncology 10/25/21 Patricia Miller APRN.HEALTH OFFICER [address] [place] [address] [place] [address] Nurse Practitioner Hematology/Oncology 10/25/21 Denita Rai, KERRY [address] [facility] [place] [address] Specialty Construction Driller Hematology/Oncology 10/25/21 Minna Madrigal LSW Test Consultant 01/08/23 Appointment Specialist Relationship Specialty Start Date End Date Christina Azul MD [address] [place] [address] PCP - General Family Medicine 07/03/21 Sofie Diana MD [address] [place] [address] Primary Staff Physician Cardiology 07/03/21 Verito Whelan MD [address] [place] [address] Referring Pulmonary Disease 10/04/21 Nina Grigsby MD [address] [place] [address] [place] [address] Physician Hematology/Oncology 10/25/21 Patricia Miller APRN.HEALTH OFFICER [address] [place] [address] [place] [address] Nurse Practitioner Hematology/Oncology 10/25/21 Denita Rai, KERRY [address] [place] [address] [place] [address] Specialty Construction Driller Hematology/Oncology 10/25/21 Minna Madrigal LSW Test Consultant 01/08/23 Appointment Specialist Relationship Specialty Start Date End Date Christina Azul MD [address] [place] [address] PCP - General Family Medicine 07/03/21 Sofie Diana MD [address] [facility] [place] [address] Primary Staff Physician Cardiology 07/03/21 Verito Whelan MD [address] [place] [address] Referring Pulmonary Disease 10/04/21 Nina Grigsby MD [address] [place] [address] [place] [address] Physician Hematology/Oncology 10/25/21 Patricia Miller, SHEET METAL WORK FURNACE 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 [address] [facility] [place] [address] Nurse Practitioner Hematology/Oncology 10/25/21 Denita Rai, RN [address] [facility] [place] [address] Specialty Construction Driller Hematology/Oncology 10/25/21 Minna Madrigal LSW Test Consultant 01/08/23 Appointment Specialist Relationship Specialty Start Date End Date Christina Azul MD [address] [place] [address] PCP - General Family Medicine 07/03/21 Sofie Diana MD [address] [place] [id number] Primary Staff Physician Cardiology 07/03/21 Verito Whelan MD [address] [place] [address] Referring Pulmonary Disease 10/04/21 Nina Grigsby MD [address] [place] [address] [place] [address] Physician Hematology/Oncology 10/25/21 Patricia Miller, SHEET METAL WORK FURNACE 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 [address] [place] [address] [place] [address] Nurse Practitioner Hematology/Oncology 10/25/21 Denita Rai, RN [address] [facility] [place] [address] Specialty Construction Driller Hematology/Oncology 10/25/21 Minna Madrigal LSW Test Consultant 01/08/23 Appointment Specialist Relationship Specialty Start Date End Date Christina Azul MD [address] [place] [address] PCP - General Family Medicine 07/03/21 Sofie Diana MD [address] [place], [place] 7228295 Primary Staff Physician Cardiology 07/03/21 Verito Whelan MD [address] [place], [place] 6375195 Referring Pulmonary Disease 10/04/21 Nina Grigsby MD [address] [facility] [place] [address] Physician Hematology/Oncology 10/25/21 Patricia Miller APRN.HEALTH OFFICER [address] [facility] [place] [address] Nurse Practitioner Hematology/Oncology 10/25/21 Denita Rai, RN [address] [facility] [place] [address] Specialty Construction Driller Hematology/Oncology 10/25/21 Minna Madrigal LSW Test Consultant 01/08/23 Appointment Specialist Relationship Specialty Start Date End Date Christina Azul MD [address] [place] [address] PCP - General Family Medicine 07/03/21 Sofie Diana MD [address] [place], [place] 1014295 Primary Staff Physician Cardiology 07/03/21 Verito Whelan MD [address] [place] [address] Referring Pulmonary Disease 10/04/21 Nina Grigsby MD [address] [facility] [place] [address] Physician Hematology/Oncology 10/25/21 Patricia Miller, SHEET METAL WORK FURNACE 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 [address] [facility] [place] [address] Nurse Practitioner Hematology/Oncology 10/25/21 Denita Rai, KERRY [address] [facility] [place] [address] Specialty Construction Driller Hematology/Oncology 10/25/21 Minna Madrigal LSW Test Consultant 01/08/23 Appointment Specialist Relationship Specialty Start Date End Date Christina Azul MD [address] [place] [address] PCP - General Family Medicine 07/03/21 Sofie Diana MD [address] [place] [address] Primary Staff Physician Cardiology 07/03/21 Verito Whelan MD [address] [place] [address] Referring Pulmonary Disease 10/04/21 Nina Grigsby MD [address] [facility] [place] [address] Physician Hematology/Oncology 10/25/21 Patricia Miller, SHEET METAL WORK FURNACE 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 [address] [place] [address] [place] [address] Nurse Practitioner Hematology/Oncology 10/25/21 Denita Rai, RN [address] [facility] [place] [address] Specialty Construction Driller Hematology/Oncology 10/25/21 Minna Madrigal LSW Test Consultant 01/08/23 Appointment Specialist Relationship Specialty Start Date End Date Christina Azul MD [address] [place] [address] PCP - General Family Medicine 07/03/21 Sofie Diana MD [address] [place], [place] [phone] Primary Staff Physician Cardiology 07/03/21 Verito Whelan MD [address] [place] [address] Referring Pulmonary Disease 10/04/21 Nina Grigsby MD [address] [place] [address] [place] [address] Physician Hematology/Oncology 10/25/21 Patricia Miller APRN.HEALTH OFFICER [address] [place] [address] [place] [address] Nurse Practitioner Hematology/Oncology 10/25/21 Denita Rai, KERRY [address] [facility] [place] [address] Specialty Construction Driller Hematology/Oncology 10/25/21 Minna Madrigal LSW Test Consultant 01/08/23 Appointment Specialist Relationship Specialty Start Date End Date Christina Azul MD [address] [place] [address] PCP - General Family Medicine 07/03/21 Sofie Diana MD [address] [place] [address] Primary Staff Physician Cardiology 07/03/21 Verito Whelan MD [address] [facility] [place] [address] Referring Pulmonary Disease 10/04/21 Nina Grigsby MD [address] [place] [address] [place] [address] Physician Hematology/Oncology 10/25/21 Patricia Miller, OZZIE.HEALTH OFFICER [address] [place] [address] [address] [place] [id number] Nurse Practitioner Hematology/Oncology 10/25/21 Denita Rai, KERRY [address] [place] [address] [place] [address] Specialty Construction Driller Hematology/Oncology 10/25/21 Minna Madrigal LSW Test Consultant 01/08/23 Appointment Specialist Relationship Specialty Start Date End Date Christina Azul MD [address] [place] [address] PCP - General Family Medicine 07/03/21 Sofie Diana MD [address] [place] [address] Primary Staff Physician Cardiology 07/03/21 Verito Whelan MD [address] [place] [id number] Referring Pulmonary Disease 10/04/21 Nina Grigsby MD [address] [place] [address] [place] [address] Physician Hematology/Oncology 10/25/21 Patricia Miller, SHEET METAL WORK FURNACE 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 [address] [place] [address] [place] [address] Nurse Practitioner Hematology/Oncology 10/25/21 Denita Rai, KERRY [address] [place] [address] [place] [address] Specialty Construction Driller Hematology/Oncology 10/25/21 Minna Madrigal LSW Test Consultant 01/08/23 Appointment Specialist Relationship Specialty Start Date End Date Christina Azul MD [address] [place] [address] PCP - General Family Medicine 07/03/21 Sofie Diana MD [address] [place] [phone] Primary Staff Physician Cardiology 07/03/21 Verito Whelan MD [address] [place] [phone] Referring Pulmonary Disease 10/04/21 Nina Grigsby MD [address] [place] [address] [place] [address] Physician Hematology/Oncology 10/25/21 Patricia Miller, SHEET METAL WORK FURNACE 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 [address] [facility] [place] [address] Nurse Practitioner Hematology/Oncology 10/25/21 Denita Rai, KERRY [address] [facility] [place] [address] Specialty Construction Driller Hematology/Oncology 10/25/21 Appointment Specialist Relationship Specialty Start Date End Date Christina Azul MD [address] [place] [address] PCP - General Family Medicine 07/03/21 Sofie Diana MD [address] [place] [address] Primary Staff Physician Cardiology 07/03/21 Verito Whelan MD [address] [place], [place] [phone] Referring Pulmonary Disease 10/04/21 Nina Grigsby MD [address] [place] [address] [place] [address] Physician Hematology/Oncology 10/25/21 Patricia Miller, OZZIE.HEALTH OFFICER [address] [place] [address] [place] [address] Nurse Practitioner Hematology/Oncology 10/25/21 Denita Rai, KERRY [address] [facility] [place] [address] Specialty Construction Driller Hematology/Oncology 10/25/21 Minna Madrigal LSW Test Consultant 01/08/23 Estella Fish, SHEET METAL WORK FURNACE 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 [address] [place] [address] [place] [address] HOSPICE & PALLIATIVE MEDICINE 05/22/23 Julieth Tapia RN Specialty Construction Driller HOSPICE & PALLIATIVE MEDICINE 05/22/23 Appointment Specialist Relationship Specialty Start Date End Date Christina Azul MD [address] [facility] [place] [address] PCP - General Family Medicine 07/03/21 Sofie Diana MD [address] [place], [place] [phone] Primary Staff Physician Cardiology 07/03/21 Verito Whelan MD [address] [place], [place] [id number] Referring Pulmonary Disease 10/04/21 Nina Grigsby MD [address] [facility] [place] [address] Physician Hematology/Oncology 10/25/21 Patricia Miller, SHEET METAL WORK FURNACE 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 [address] [place] [address] [place] [address] Nurse Practitioner Hematology/Oncology 10/25/21 Denita Rai, KERRY [address] [facility] [place] [address] Specialty Construction Driller Hematology/Oncology 10/25/21 Minna Madrigal LSW Test Consultant 01/08/23 Estella Fish, SHEET METAL WORK FURNACE 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 [address] [facility] [place] [address] HOSPICE & PALLIATIVE MEDICINE 05/22/23 Julieth Tapia RN Specialty Construction Driller HOSPICE & PALLIATIVE MEDICINE 05/22/23 Appointment Specialist Relationship Specialty Start Date End Date Christina Azul MD [address] [place] [address] PCP - General Family Medicine 07/03/21 Sofie Diana MD [address] [place] [address] Primary Staff Physician Cardiology 07/03/21 Verito Whelan MD [address] [place] [address] Referring Pulmonary Disease 10/04/21 Nina Grigsby MD [address] [place] [address] [place] [address] Physician Hematology/Oncology 10/25/21 Patricia Miller, SHEET METAL WORK FURNACE 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 [address] [place] [address] [place] [address] Nurse Practitioner Hematology/Oncology 10/25/21 Denita Rai, KERRY [address] [place] [address] [place] [address] Specialty Construction Driller Hematology/Oncology 10/25/21 Minna Madrigal LSW Test Consultant 01/08/23 Estella Fish, SHEET METAL WORK FURNACE 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 [address] [place] [address] [place] [address] HOSPICE & PALLIATIVE MEDICINE 05/22/23 Julieth Tapia, RN Specialty Construction Driller HOSPICE & PALLIATIVE MEDICINE 05/22/23 Appointment Specialist Relationship Specialty Start Date End Date Christina Azul MD [address] [place] [address] PCP - General Family Medicine 07/03/21 Sofie Diana MD [address] [place], [place] [id number] Primary Staff Physician Cardiology 07/03/21 Verito Whelan MD [address] [place], [place] [id number] Referring Pulmonary Disease 10/04/21 Nina Grigsby MD [address] [place] [address] [place] [address] Physician Hematology/Oncology 10/25/21 Patricia Miller, SHEET METAL WORK FURNACE 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 [address] [place] [address] [place] [address] Nurse Practitioner Hematology/Oncology 10/25/21 Denita Rai, KERRY [address] [place] [address] [place] [address] Specialty Construction Driller Hematology/Oncology 10/25/21 Minna Madrigal LSW Test Consultant 01/08/23 Estella Fish, SHEET METAL WORK FURNACE 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 [address] [place] [address] [place] [address] HOSPICE & PALLIATIVE MEDICINE 05/22/23 Julieth Tapia RN Specialty Construction Driller HOSPICE & PALLIATIVE MEDICINE 05/22/23 Appointment Specialist Relationship Specialty Start Date End Date Christina Azul MD [address] [place] [address] PCP - General Family Medicine 07/03/21 Sofie Diana MD [address] [place] [address] Primary Staff Physician Cardiology 07/03/21 Verito Whelan MD [address] [place] [address] Referring Pulmonary Disease 10/04/21 Nina Grigsby MD [address] [place] [address] [place] [address] Physician Hematology/Oncology 10/25/21 Patricia Miller, SHEET METAL WORK FURNACE 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 [address] [place] [address] [place] [address] Nurse Practitioner Hematology/Oncology 10/25/21 Denita Rai, KERRY [address] [place] [address] [place] [address] Specialty Construction Driller Hematology/Oncology 10/25/21 Minna Madrigal LSW Test Consultant 01/08/23 Estella Fish, SHEET METAL WORK FURNACE 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 [address] [place] [address] [place] [address] HOSPICE & PALLIATIVE MEDICINE 05/22/23 Julieth Tapia, RN Specialty Construction Driller HOSPICE & PALLIATIVE MEDICINE 05/22/23 Appointment Specialist Relationship Specialty Start Date End Date Christina Azul MD [address] [place] [address] PCP - General Family Medicine 07/03/21 Sofie Diana MD [address] [place] [address] Primary Staff Physician Cardiology 07/03/21 Verito Whelan MD [address] [place], [place] [id number] Referring Pulmonary Disease 10/04/21 Nina Grigsby MD [address] [place] [address] [place] [address] Physician Hematology/Oncology 10/25/21 Patricia Miller, SHEET METAL WORK FURNACE 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 [address] [place] [address] [place] [address] Nurse Practitioner Hematology/Oncology 10/25/21 Denita Rai, KERRY [address] [place] [address] [place] [address] Specialty Construction Driller Hematology/Oncology 10/25/21 Minna Madrigal LSW Test Consultant 01/08/23 Estella Fish, SHEET METAL WORK FURNACE 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 [address] [place] [address] [place] [address] HOSPICE & PALLIATIVE MEDICINE 05/22/23 Julieth Tapia RN Specialty Construction Driller HOSPICE & PALLIATIVE MEDICINE 05/22/23 Appointment Specialist Relationship Specialty Start Date End Date Christina Azul MD [address] [place] [address] PCP - General Family Medicine 07/03/21 Sofie Diana MD [address] [place] [address] Primary Staff Physician Cardiology 07/03/21 Verito Whelan MD [address] [place], [place] [phone] Referring Pulmonary Disease 10/04/21 Nina Grigsby MD [address] [place] [address] [place] [address] Physician Hematology/Oncology 10/25/21 Patricia Miller, SHEET METAL WORK FURNACE 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 [address] [place] [address] [place] [address] Nurse Practitioner Hematology/Oncology 10/25/21 Denita Rai, KERRY [address] [place] [address] [place] [address] Specialty Construction Driller Hematology/Oncology 10/25/21 Minna Madrigal LSW Test Consultant 01/08/23 Estella Fish, SHEET METAL WORK FURNACE 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 [address] [place] [address] [place] [address] HOSPICE & PALLIATIVE MEDICINE 05/22/23 Julieth Tapia RN Specialty Construction Driller HOSPICE & PALLIATIVE MEDICINE 05/22/23 Appointment Specialist Relationship Specialty Start Date End Date Christina Azul MD [address] [place] [address] PCP - General Family Medicine 07/03/21 Sofie Diana MD [address] [place] [address] Primary Staff Physician Cardiology 07/03/21 Verito Whelan MD [address] [place], [place] [id number] Referring Pulmonary Disease 10/04/21 Nina Grigsby MD [address] [place] [address] [place] [address] Physician Hematology/Oncology 10/25/21 Patricia Miller, SHEET METAL WORK FURNACE 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 [address] [place] [address] [place] [address] Nurse Practitioner Hematology/Oncology 10/25/21 Denita Rai, KERRY [address] [place] [address] [place] [address] Specialty Construction Driller Hematology/Oncology 10/25/21 Minna Madrigal LSW Test Consultant 01/08/23 Estella Fish, SHEET METAL WORK FURNACE 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 [address] [place] [address] [place] [address] HOSPICE & PALLIATIVE MEDICINE 05/22/23 Julieth Tapia RN Specialty Construction Driller HOSPICE & PALLIATIVE MEDICINE 05/22/23 Appointment Specialist Relationship Specialty Start Date End Date Christina Azul MD [address] [place] [address] PCP - General Family Medicine 07/03/21 Sofie Diana MD [address] [place], [place] [id number] Primary Staff Physician Cardiology 07/03/21 Verito Whelan MD [address] [place], [place] [id number] Referring Pulmonary Disease 10/04/21 Nina Grigsby MD [address] [place] [address] [place] [address] Physician Hematology/Oncology 10/25/21 Patricia Miller, SHEET METAL WORK FURNACE 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 [address] [place] [address] [place] [address] Nurse Practitioner Hematology/Oncology 10/25/21 Denita Rai, KERRY [address] [place] [address] [place] [address] Specialty Construction Driller Hematology/Oncology 10/25/21 Minna Madrigal LSW Test Consultant 01/08/23 Estella Fish APRN.HEALTH OFFICER [address] [place] [address] [place] [address] HOSPICE & PALLIATIVE MEDICINE 05/22/23 Julieth Tapia RN Specialty Construction Driller HOSPICE & PALLIATIVE MEDICINE 05/22/23 Appointment Specialist Relationship Specialty Start Date End Date Christina Azul MD [address] [place] [address] PCP - General Family Medicine 07/03/21 Sofie Diana MD [address] [place] [address] Primary Staff Physician Cardiology 07/03/21 Verito Whelan MD [address] [place] [address] Referring Pulmonary Disease 10/04/21 Nina Grigsby MD [address] [place] [address] [place] [address] Physician Hematology/Oncology 10/25/21 Patricia Miller, OZZIE.HEALTH OFFICER [address] [place] [address] [place] [address] Nurse Practitioner Hematology/Oncology 10/25/21 Denita Rai, KERRY [address] [facility] [place] [address] Specialty Construction Driller Hematology/Oncology 10/25/21 Minna Madrigal LSW Test Consultant 01/08/23 Estella Fish, SHEET METAL WORK FURNACE 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 [address] [facility] [place] [address] HOSPICE & PALLIATIVE MEDICINE 05/22/23 Julieth Tapia, RN Specialty Construction Driller HOSPICE & PALLIATIVE MEDICINE 05/22/23 Appointment Specialist Relationship Specialty Start Date End Date Enrique Esposito, SHEET METAL WORK FURNACE 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 [address] [place] [address] PCP - General 08/15/23 Sofie Diana MD [address] [place] [address] Primary Staff Physician Cardiology 07/03/21 Verito Whelan MD [address] [place], [place] [id number] Referring Pulmonary Disease 10/04/21 Nina Grigsby MD [address] [place] [address] [place] [address] Physician Hematology/Oncology 10/25/21 Patricia Miller, SHEET METAL WORK FURNACE 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 [address] [facility] [place] [address] Nurse Practitioner Hematology/Oncology 10/25/21 Denita Rai, KERRY [address] [facility] [place] [address] Specialty Construction Driller Hematology/Oncology 10/25/21 Minna Madrigal LSW Test Consultant 01/08/23 Estella Fish, SHEET METAL WORK FURNACE 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 [address] [facility] [place] [address] Hospice & Palliative Medicine 05/22/23 Julieth Tapia, KERRY Specialty Construction Driller Hospice & Palliative Medicine 05/22/23 Appointment Specialist Relationship Specialty Start Date End Date Enrique Esposito, SHEET METAL WORK FURNACE 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 [address] [place] [address] PCP - General 08/15/23 Sofie Diana MD [address] [place], [place] [id number] Primary Staff Physician Cardiology 07/03/21 Verito Whelan MD [address] [place] [id number] Referring Pulmonary Disease 10/04/21 Nina Grigsby MD [address] [place] [address] [place] [address] Physician Hematology/Oncology 10/25/21 Patricia Miller, SHEET METAL WORK FURNACE 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 [address] [place] [address] [place] [address] Nurse Practitioner Hematology/Oncology 10/25/21 Denita Rai, KERRY [address] [place] [address] [place] [address] Specialty Construction Driller Hematology/Oncology 10/25/21 Minna Madrigal LSW Test Consultant 01/08/23 Estella Fish, SHEET METAL WORK FURNACE 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 [address] [place] [address] [place] [address] Hospice & Palliative Medicine 05/22/23 Julieth Tapia RN Specialty Construction Driller Hospice & Palliative Medicine 05/22/23 Appointment Specialist Relationship Specialty Start Date End Date Enrique Esposito, SHEET METAL WORK FURNACE 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 [address] [place] [address] PCP - General 08/15/23 Sofie Diana MD [address] [place], [place] [id number] Primary Staff Physician Cardiology 07/03/21 Verito Whelan MD [address] [place], [place] [id number] Referring Pulmonary Disease 10/04/21 Nina Grigsby MD [address] [place] [address] [place] [address] Physician Hematology/Oncology 10/25/21 Patricia Miller, SHEET METAL WORK FURNACE 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 [address] [place] [address] [place] [address] Nurse Practitioner Hematology/Oncology 10/25/21 Denita Rai, KERRY [address] [place] [address] [place] [address] Specialty Construction Driller Hematology/Oncology 10/25/21 Minna Madrigal LSW Test Consultant 01/08/23 Estella Fish, SHEET METAL WORK FURNACE 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 [address] [place] [address] [place] [phone] Hospice & Palliative Medicine 05/22/23 Julieth Tapia, RN Specialty Construction Driller Hospice & Palliative Medicine 05/22/23 Appointment Specialist Relationship Specialty Start Date End Date Enrique Esposito, SHEET METAL WORK FURNACE 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 [address] [place] [address] PCP - General 08/15/23 Sofie Diana MD [address] [place], [place] [id number] Primary Staff Physician Cardiology 07/03/21 Verito Whelan MD [address] [place], [place] [id number] Referring Pulmonary Disease 10/04/21 Nina Grigsby MD [address] [place] [address] [place] [address] Physician Hematology/Oncology 10/25/21 Patricia Miller, SHEET METAL WORK FURNACE 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 [address] [place] [address] [place] [address] Nurse Practitioner Hematology/Oncology 10/25/21 Denita Rai, KERRY [address] [place] [address] [place] [address] Specialty Construction Driller Hematology/Oncology 10/25/21 Minna Madrigal LSW Test Consultant 01/08/23 Esetlla Fish, SHEET METAL WORK FURNACE 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 [address] [place] [address] [place] [address] Hospice & Palliative Medicine 05/22/23 Julieth Tapia, RN Specialty Construction Driller Hospice & Palliative Medicine 05/22/23 Appointment Specialist Relationship Specialty Start Date End Date Enrique Esposito, SHEET METAL WORK FURNACE 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 [address] [place] [address] [id number] PCP - General 08/15/23 Sofie Diana MD [address] [place], [place] [id number] Primary Staff Physician Cardiology 07/03/21 Verito Whelan MD [address] [place], [place] 3180995 Referring Pulmonary Disease 10/04/21 Nina Grigsby MD [address] [place] [address] [place] [address] Physician Hematology/Oncology 10/25/21 Patricia Miller, SHEET METAL WORK FURNACE 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 [address] [facility] [place] [address] Nurse Practitioner Hematology/Oncology 10/25/21 Denita Rai, KERRY [address] [facility] [place] [address] Specialty Construction Driller Hematology/Oncology 10/25/21 Minna Madrigal LSW Test Consultant 01/08/23 Estella Fish, SHEET METAL WORK FURNACE 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 [address] [place] [address] [place] [address] Hospice & Palliative Medicine 05/22/23 Julieth Tapia, RN Specialty Construction Driller Hospice & Palliative Medicine 05/22/23 Appointment Specialist Relationship Specialty Start Date End Date Enrique Esposito, SHEET METAL WORK FURNACE 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 [address] [place] [address] PCP - General 08/15/23 Sofie Diana MD [address] [place] [address] Primary Staff Physician Cardiology 07/03/21 Verito Whelan MD [address] [place] [address] Referring Pulmonary Disease 10/04/21 iNna Grigsby MD [address] [place] [address] [place] [address] Physician Hematology/Oncology 10/25/21 Patricia Miller, SHEET METAL WORK FURNACE 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 [address] [place] [address] [place] [address] Nurse Practitioner Hematology/Oncology 10/25/21 Denita Rai, KERRY [address] [facility] [place] [address] Specialty Construction Driller Hematology/Oncology 10/25/21 Minna Madrigal LSW Test Consultant 01/08/23 Estella Fish, SHEET METAL WORK FURNACE 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 [address] [place] [address] [place] [address] Hospice & Palliative Medicine 05/22/23 Julieth Tapia, KERRY Specialty Construction Driller Hospice & Palliative Medicine 05/22/23 Appointment Specialist Relationship Specialty Start Date End Date Enrique Esposito, SHEET METAL WORK FURNACE 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 [address] [place] [address] PCP - General 08/15/23 Sofie Diana MD [address] [place] [address] Primary Staff Physician Cardiology 07/03/21 Verito Whelan MD [address] [place], [place] [id number] Referring Pulmonary Disease 10/04/21 Nina Grigsby MD [address] [place] [address] [place] [address] Physician Hematology/Oncology 10/25/21 Patricia Miller, SHEET METAL WORK FURNACE 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 [address] [place] [address] [place] [address] Nurse Practitioner Hematology/Oncology 10/25/21 Denita Rai, RN [address] [facility] [place] [address] Specialty Construction Driller Hematology/Oncology 10/25/21 Minna Madrigal LSW Test Consultant 01/08/23 Estella Fish, SHEET METAL WORK FURNACE 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 [address] [place] [address] [place] [address] Hospice & Palliative Medicine 05/22/23 Julieth Tapia RN Specialty Construction Driller Hospice & Palliative Medicine 05/22/23 Appointment Specialist Relationship Specialty Start Date End Date Enrique Esposito, SHEET METAL WORK FURNACE 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 [address] [place] [address] PCP - General 08/15/23 Sofie Diana MD [address] [place] [address] Primary Staff Physician Cardiology 07/03/21 Verito Whelan MD [address] [place], [place] [phone] Referring Pulmonary Disease 10/04/21 Nina Grigsby MD [address] [place] [address] [place] [address] Physician Hematology/Oncology 10/25/21 Patricia Miller, SHEET METAL WORK FURNACE 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 [address] [place] [address] [place] [address] Nurse Practitioner Hematology/Oncology 10/25/21 Denita Rai, KERRY [address] [place] [address] [place] [address] Specialty Construction Driller Hematology/Oncology 10/25/21 Minna Madrigal LSW Test Consultant 01/08/23 Estella Fish, SHEET METAL WORK FURNACE 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 [address] [place] [address] [place] [address] Hospice & Palliative Medicine 05/22/23 Julieth Tapia RN Specialty Construction Driller Hospice & Palliative Medicine 05/22/23 Appointment Specialist Relationship Specialty Start Date End Date Enrique Esposito, SHEET METAL WORK FURNACE 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 [address] [place] [address] PCP - General 08/15/23 Sofie Diana MD [address] [place], [place] [id number] Primary Staff Physician Cardiology 07/03/21 Verito Whelan MD [address] [place], [place] [id number] Referring Pulmonary Disease 10/04/21 Nina Grigsby MD [address] [place] [address] [place] [address] Physician Hematology/Oncology 10/25/21 Patricia Miller, SHEET METAL WORK FURNACE 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 [address] [place] [address] [place] [address] Nurse Practitioner Hematology/Oncology 10/25/21 Denita Rai, KERRY [address] [place] [address] [place] [address] Specialty Construction Driller Hematology/Oncology 10/25/21 Minna Madrigal LSW Test Consultant 01/08/23 Estella Fish, SHEET METAL WORK FURNACE 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 [address] [place] [address] [place] [address] Hospice & Palliative Medicine 05/22/23 Julieth Tapia RN Specialty Construction Driller Hospice & Palliative Medicine 05/22/23 Appointment Specialist Relationship Specialty Start Date End Date Enrique Esposito, SHEET METAL WORK FURNACE 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 [address] [place] [address] PCP - General 08/15/23 Sofie Diana MD [address] [place] [address] Primary Staff Physician Cardiology 07/03/21 Verito Whelan MD [address] [place], [place] [phone] Referring Pulmonary Disease 10/04/21 Nina Grigsby MD [address] [place] [address] [place] [address] Physician Hematology/Oncology 10/25/21 Patricia Miller, SHEET METAL WORK FURNACE 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 [address] [place] [address] [place] [address] Nurse Practitioner Hematology/Oncology 10/25/21 Denita Rai, KERRY [address] [place] [address] [place] [address] Specialty Construction Driller Hematology/Oncology 10/25/21 Minna Madrigal LSW Test Consultant 01/08/23 Estella Fish SHEET METAL WORK FURNACE 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 [address] [facility] [place] [phone] Hospice & Palliative Medicine 05/22/23 Julieth Tapia, RN Specialty Construction Driller Hospice & Palliative Medicine 05/22/23 Appointment Specialist Relationship Specialty Start Date End Date Enrique Esposito, SHEET METAL WORK FURNACE 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 [address] [place] [address] PCP - General 08/15/23 Sofie Diana MD [address] [place] [address] Primary Staff Physician Cardiology 07/03/21 Verito Whelan MD [address] [place], [place] [id number] Referring Pulmonary Disease 10/04/21 Nina Grigsby MD [address] [facility] [place] [address] Physician Hematology/Oncology 10/25/21 Patricia Miller, SHEET METAL WORK FURNACE 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 [address] [facility] [place] [address] Nurse Practitioner Hematology/Oncology 10/25/21 Denita Rai, KERRY [address] [facility] [place] [address] Specialty Construction Driller Hematology/Oncology 10/25/21 Minna Madrigal LSW Test Consultant 01/08/23 Estella Fish, SHEET METAL WORK FURNACE 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 [address] [facility] [place] [address] Hospice & Palliative Medicine 05/22/23 Julieth Tapia, KERRY Specialty Construction Driller Hospice & Palliative Medicine 05/22/23 Appointment Specialist Relationship Specialty Start Date End Date Enrique Esposito, SHEET METAL WORK FURNACE 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 [address] [place] [address] PCP - General 08/15/23 Sofie Diana MD [address] [place], [place] [phone] Primary Staff Physician Cardiology 07/03/21 Verito Whelan MD [address] [place], [place] [phone] Referring Pulmonary Disease 10/04/21 Nina Grigsby MD [address] [place] [address] [place] [address] Physician Hematology/Oncology 10/25/21 Patricia Miller, SHEET METAL WORK FURNACE 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 [address] [place] [address] [place] [address] Nurse Practitioner Hematology/Oncology 10/25/21 Denita Rai, KERRY [address] [facility] [place] [address] Specialty Construction Driller Hematology/Oncology 10/25/21 Minna Madrigal LSW Test Consultant 01/08/23 Estella Fish, SHEET METAL WORK FURNACE 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 [address] [facility] [place] [phone] Hospice & Palliative Medicine 05/22/23 Julieth Tapia RN Specialty Construction Driller Hospice & Palliative Medicine 05/22/23 Appointment Specialist Relationship Specialty Start Date End Date Enrique Esposito, SHEET METAL WORK FURNACE 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 [address] [place] [address] PCP - General 08/15/23 Sofie Diana MD [address] [place] [address] Primary Staff Physician Cardiology 07/03/21 Verito Whelan MD [address] [place] [address] Referring Pulmonary Disease 10/04/21 Nina Grigsby MD [address] [place] [address] [place] [address] Physician Hematology/Oncology 10/25/21 Patricia Miller, SHEET METAL WORK FURNACE 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 [address] [place] [address] [place] [address] Nurse Practitioner Hematology/Oncology 10/25/21 Denita Rai, KERRY [address] [place] [address] [place] [address] Specialty Construction Driller Hematology/Oncology 10/25/21 Minna Madrigal LSW Test Consultant 01/08/23 Estella Fish, SHEET METAL WORK FURNACE 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 [address] [place] [address] [place] [phone] Hospice & Palliative Medicine 05/22/23 Julieth Tapia, RN Specialty Construction Driller Hospice & Palliative Medicine 05/22/23 Appointment Specialist Relationship Specialty Start Date End Date Enrique Esposito, SHEET METAL WORK FURNACE 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 [address] [place] [address] PCP - General 08/15/23 Sofie Diana MD [address] [place] [address] Primary Staff Physician Cardiology 07/03/21 Verito Whelan MD [address] [place], [place] [id number] Referring Pulmonary Disease 10/04/21 Nina Grigsby MD [address] [place] [address] [place] [address] Physician Hematology/Oncology 10/25/21 Patricia Miller, SHEET METAL WORK FURNACE 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 [address] [place] [address] [place] [address] Nurse Practitioner Hematology/Oncology 10/25/21 Denita Rai, KERRY [address] [place] [address] [place] [address] Specialty Construction Driller Hematology/Oncology 10/25/21 Minna Madrigal LSW Test Consultant 01/08/23 Estella Fish, SHEET METAL WORK FURNACE 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 [address] [place] [address] [place] [address] Hospice & Palliative Medicine 05/22/23 Julieth Tapia RN Specialty Construction Driller Hospice & Palliative Medicine 05/22/23 Appointment Specialist Relationship Specialty Start Date End Date Enrique Esposito, SHEET METAL WORK FURNACE 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 [address] [place] [address] PCP - General 08/15/23 Sofie Diana MD [address] [place] [address] Primary Staff Physician Cardiology 07/03/21 Verito Whelan MD [address] [place], [place] [phone] Referring Pulmonary Disease 10/04/21 Nina Grigsby MD [address] [place] [address] [place] [address] Physician Hematology/Oncology 10/25/21 Patricia Miller, SHEET METAL WORK FURNACE 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 [address] [place] [address] [place] [address] Nurse Practitioner Hematology/Oncology 10/25/21 Denita Rai, KERRY [address] [place] [address] [place] [address] Specialty Construction Driller Hematology/Oncology 10/25/21 Minna Madrigal LSW Test Consultant 01/08/23 Estella Fish, SHEET METAL WORK FURNACE INSTALLER.HEALTH OFFICER [address] [place] [address] [place] [address] Hospice & Palliative Medicine 05/22/23 Julieth Tapia, RN Specialty Construction Driller Hospice & Palliative Medicine 05/22/23 Appointment Specialist Relationship Specialty Start Date End Date Enrique Esposito, SHEET METAL WORK FURNACE INSTALLER.HEALTH OFFICER [address] [place] [address] [phone] PCP - General 08/15/23 oSfie Diana MD [address] [place], [place] [phone] Primary Staff Physician Cardiology 07/03/21 Verito Whelan MD [address] [place], [place] 3052195 Referring Pulmonary Disease 10/04/21 Nina Grigsby MD [address] [place] [address] [place] [address] Physician Hematology/Oncology 10/25/21 Patricia Miller, SHEET METAL WORK FURNACE INSTALLER.HEALTH OFFICER [address] [facility] [place] [address] Nurse Practitioner Hematology/Oncology 10/25/21 Denita Rai, KERRY [address] [place] [address] [place] [address] Specialty Construction Driller Hematology/Oncology 10/25/21 Minna Madrigal LSW Test Consultant 01/08/23 Estella Fish, SHEET METAL WORK FURNACE INSTALLER.HEALTH OFFICER [address] [place] [address] [place] [address] Hospice & Palliative Medicine 05/22/23 Julieth Tapia, KERRY Specialty Construction Driller Hospice & Palliative Medicine 05/22/23 Appointment Specialist Relationship Specialty Start Date End Date Enrique Esposito, SHEET METAL WORK FURNACE INSTALLER.HEALTH OFFICER [address] [place] [address]19 PCP - General 08/15/23 Sofie Diana MD [address] [place], [place] [id number] Primary Staff Physician Cardiology 07/03/21 Verito Whelan MD [address] [place], [place] [id number] Referring Pulmonary Disease 10/04/21 Nina Grigsby MD [address] [place] [address] [place] [address] Physician Hematology/Oncology 10/25/21 Patricia Miller, SHEET METAL WORK FURNACE INSTALLER.HEALTH OFFICER [address] [place] [address] [place] [address] Nurse Practitioner Hematology/Oncology 10/25/21 Denita Rai, RN [address] [facility] [place] [address] Specialty Construction Driller Hematology/Oncology 10/25/21 Minna Madrigal LSW Test Consultant 01/08/23 Estella Fish, SHEET METAL WORK FURNACE INSTALLER.HEALTH OFFICER [address] [place] [address] [place] [address] Hospice & Palliative Medicine 05/22/23 Julieth Tapia RN Specialty Construction Driller Hospice & Palliative Medicine 05/22/23 Appointment Specialist Relationship Specialty Start Date End Date Enrique Esposito, SHEET METAL WORK FURNACE INSTALLER.HEALTH OFFICER [address] [place] [address] 97989 PCP - General 08/15/23 Sofie Diana MD [address] [place] [address] Primary Staff Physician Cardiology 07/03/21 Verito Whelan MD [address] [place] [id number] Referring Pulmonary Disease 10/04/21 Nina Grigsby MD [address] [place] [address] [place] [address] Physician Hematology/Oncology 10/25/21 Patricia Miller, SHEET METAL WORK FURNACE INSTALLER.HEALTH OFFICER [address] [place] [address] [address] [place], [place] [id number] Nurse Practitioner Hematology/Oncology 10/25/21 Denita Rai, KERRY [address] [facility] [place] [address] Specialty Construction Driller Hematology/Oncology 10/25/21 Minna Madrigal LSW Test Consultant 01/08/23 Estella Fish, SHEET METAL WORK FURNACE INSTALLER.HEALTH OFFICER [address] [place] [address] [place] [address] Hospice & Palliative Medicine 05/22/23 Julieth Tapia RN Specialty Construction Driller Hospice & Palliative Medicine 05/22/23 Appointment Specialist Relationship Specialty Start Date End Date Enrique Esposito, SHEET METAL WORK FURNACE INSTALLER.HEALTH OFFICER [address] [place] [address] 71229 PCP - General 08/15/23 Sofie Diana MD [address] [place] [address] Primary Staff Physician Cardiology 07/03/21 Verito Whelan MD [address] [place] [address] Referring Pulmonary Disease 10/04/21 Nina Grigsby MD [address] [place] [address] [place] [address] Physician Hematology/Oncology 10/25/21 Patricia Miller, SHEET METAL WORK FURNACE INSTALLER.HEALTH OFFICER [address] [place] [address] [place] [address] Nurse Practitioner Hematology/Oncology 10/25/21 Denita aRi, KERRY [address] [facility] [place] [address] Specialty Construction Driller Hematology/Oncology 10/25/21 Minna Madrigal LSW Test Consultant 01/08/23 Estella Fish, SHEET METAL WORK FURNACE INSTALLER.HEALTH OFFICER [address] [facility] [place] [address] Hospice & Palliative Medicine 05/22/23 Julieth Tapia RN Specialty Construction Driller Hospice & Palliative Medicine 05/22/23 Appointment Specialist Relationship Specialty Start Date End Date Enrique Esposito, SHEET METAL WORK FURNACE INSTALLER.HEALTH OFFICER [address] [place] [address]46 PCP - General 08/15/23 Sofie Diana MD [address] [place], [place] [phone] Primary Staff Physician Cardiology 07/03/21 Verito Whelan MD [address] [place] [address] Referring Pulmonary Disease 10/04/21 Nina Grigsby MD [address] [place] [address] [place] [address] Physician Hematology/Oncology 10/25/21 Patricia Miller, SHEET METAL WORK FURNACE INSTALLER.HEALTH OFFICER [address] [place] [address] [place] [address] Nurse Practitioner Hematology/Oncology 10/25/21 Denita Rai, KERRY [address] [facility] [place] [address] Specialty Construction Driller Hematology/Oncology 10/25/21 Minna Madrigal, MARGARET Test Consultant 01/08/23 Estella Fish, SHEET METAL WORK FURNACE INSTALLER.HEALTH OFFICER [address] [place] [address] [place] [id number] Hospice & Palliative Medicine 05/22/23 Julieth Tapia, RN Specialty Construction Driller Hospice & Palliative Medicine 05/22/23 Appointment Specialist Relationship Specialty Start Date End Date Enrique Esposito, SHEET METAL WORK FURNACE INSTALLER.HEALTH OFFICER [address] [place] [address] 44356 PCP - General 08/15/23 Sofie Diana MD [address] [place], [place] [id number] Primary Staff Physician Cardiology 07/03/21 Verito Whelan MD [address] [place], [place] [id number] Referring Pulmonary Disease 10/04/21 Nina Grigsby MD [address] [place] [address] [place] [address] Physician Hematology/Oncology 10/25/21 Patricia Miller, SHEET METAL WORK FURNACE INSTALLER.HEALTH OFFICER [address] [place] [address] [place] [address] Nurse Practitioner Hematology/Oncology 10/25/21 Denita Rai, KERRY [address] [facility] [address] [place], [place] [id number] Specialty Construction Driller Hematology/Oncology 10/25/21 Minna Madrigal LSW Test Consultant 01/08/23 Estella Fish, SHEET METAL WORK FURNACE INSTALLER.HEALTH OFFICER [address] [facility] [place] [id number] Hospice & Palliative Medicine 05/22/23 Julieth Tapia, RN Specialty Construction Driller Hospice & Palliative Medicine 05/22/23 Appointment Specialist Relationship Specialty Start Date End Date Enrique Esposito, SHEET METAL WORK FURNACE INSTALLER.HEALTH OFFICER [address] [place] [address] 21596 PCP - General 08/15/23 Sofie Diana MD [address] [place], [place] [id number] Primary Staff Physician Cardiology 07/03/21 Verito Whelan MD [address] [place], [place] [id number] Referring Pulmonary Disease 10/04/21 Nina Grigsby MD [address] [facility] [place] [address] Physician Hematology/Oncology 10/25/21 Patricia Miller, SHEET METAL WORK FURNACE INSTALLER.HEALTH OFFICER [address] [facility] [place] [address] Nurse Practitioner Hematology/Oncology 10/25/21 Denita Rai, KERRY [address] [facility] [place] [address] Specialty Construction Driller Hematology/Oncology 10/25/21 Minna Madrigal LSW Test Consultant 01/08/23 Estella Fish, SHEET METAL WORK FURNACE INSTALLER.HEALTH OFFICER [address] [facility] [place] [address] Hospice & Palliative Medicine 05/22/23 Julieth Tapia, RN Specialty Construction Driller Hospice & Palliative Medicine 05/22/23 Appointment Specialist Relationship Specialty Start Date End Date Enrique Esposito, SHEET METAL WORK FURNACE INSTALLER.HEALTH OFFICER [address] [place] [address] 98033 PCP - General 08/15/23 Sofie Diana MD [address] [place], [place] [id number] Primary Staff Physician Cardiology 07/03/21 Verito Whelan MD [address] [place] [address] Referring Pulmonary Disease 10/04/21 Nina Grigsby MD [address] [place] [address] [place] [address] Physician Hematology/Oncology 10/25/21 Patricia Miller, SHEET METAL WORK FURNACE INSTALLER.HEALTH OFFICER [address] [place] [address] [place] [address] Nurse Practitioner Hematology/Oncology 10/25/21 Denita Rai, KERRY [address] [facility] [place] [address] Specialty Construction Driller Hematology/Oncology 10/25/21 Minna Madrigal LSW Test Consultant 01/08/23 Estella Fish, SHEET METAL WORK FURNACE INSTALLER.HEALTH OFFICER [address] [place] [address] [place] [address] Hospice & Palliative Medicine 05/22/23 Julieth Tapia, KERRY Specialty Construction Driller Hospice & Palliative Medicine 05/22/23 Team Status: Active Member Role Status Dates NON STAFF Primary Care Provider Active Team Status: Inactive Member Role Status Dates NON STAFF Primary Care Provider Active Start: February 07, 2024 End: February 07, 2024 John Dominguez MD Emergency Provider Active Star t: February 07, 2024 End: February 07, 2024 Appointment Specialist Relationship Specialty Start Date End Date Enrique Esposito SHEET METAL WORK FURNACE INSTALLER.HEALTH OFFICER [address] [place] [address] 93319 PCP - General 08/15/23 Sofie Diana MD [address] [place], [place] [id number] Primary Staff Physician Cardiology 07/03/21 Verito Whelan MD [address] [place] [address] Referring Pulmonary Disease 10/04/21 Nina Grigsby MD [address] [place] [address] [place] [address] Physician Hematology/Oncology 10/25/21 Patricia Miller, SHEET METAL WORK FURNACE INSTALLER.HEALTH OFFICER [address] [place] [address] [place] [address] Nurse Practitioner Hematology/Oncology 10/25/21 Denita Rai, KERRY [address] [place] [address] [place] [address] Specialty Construction Driller Hematology/Oncology 10/25/21 Minna Madrigal LSW Test Consultant 01/08/23 Estella Fish, SHEET METAL WORK FURNACE INSTALLER.HEALTH OFFICER [address] [place] [address] [place] [address] Hospice & Palliative Medicine 05/22/23 Julieth Tapia, RN Specialty Construction Driller Hospice & Palliative Medicine 05/22/23 Appointment Specialist Relationship Specialty Start Date End Date Enrique Esposito, SHEET METAL WORK FURNACE INSTALLER.HEALTH OFFICER [address] [place] [address] 67292 PCP - General 08/15/23 Sfoie Diana MD [address] [place], [place] [id number] Primary Staff Physician Cardiology 07/03/21 Verito Whelan MD [address] [place], [place] [id number] Referring Pulmonary Disease 10/04/21 Nina Grigsby MD [address] [place] [address] [place] [address] Physician Hematology/Oncology 10/25/21 Patricia Miller, SHEET METAL WORK FURNACE INSTALLER.HEALTH OFFICER [address] [place] [address] [place] [address] Nurse Practitioner Hematology/Oncology 10/25/21 Denita Rai, KERRY [address] [place] [address] [place] [address] Specialty Construction Driller Hematology/Oncology 10/25/21 Minna Madrigal LSW Test Consultant 01/08/23 Estella Fish, SHEET METAL WORK FURNACE INSTALLER.HEALTH OFFICER [address] [place] [address] [place] [address] Hospice & Palliative Medicine 05/22/23 Julieth Tapia, RN Specialty Construction Driller Hospice & Palliative Medicine 05/22/23 Appointment Specialist Relationship Specialty Start Date End Date Enrique Esposito, SHEET METAL WORK FURNACE INSTALLER.HEALTH OFFICER [address] [place] [address] 12302 PCP - General 08/15/23 Sofie Diana MD [address] [place] [address] Primary Staff Physician Cardiology 07/03/21 Verito Whelan MD [address] [place], [place] [id number] Referring Pulmonary Disease 10/04/21 Nina Grigsby MD [address] [place] [address] [place] [address] Physician Hematology/Oncology 10/25/21 Patricia Miller, SHEET METAL WORK FURNACE INSTALLER.HEALTH OFFICER [address] [place] [address] [address] [place], [place] [id number] Nurse Practitioner Hematology/Oncology 10/25/21 Denita Rai, KERRY [address] [facility] [place] [address] Specialty Construction Driller Hematology/Oncology 10/25/21 Minna Madrigal LSW Test Consultant 01/08/23 Estella Fish, SHEET METAL WORK FURNACE INSTALLER.HEALTH OFFICER [address] [place] [address] [place] [address] Hospice & Palliative Medicine 05/22/23 Julieth Tapia, RN Specialty Construction Driller Hospice & Palliative Medicine 05/22/23 Appointment Specialist Relationship Specialty Start Date End Date Enrique Esposito, SHEET METAL WORK FURNACE INSTALLER.HEALTH OFFICER [address] [place] [address] 58422 PCP - General 08/15/23 Sofie Diana MD [address] [place] [address] Primary Staff Physician Cardiology 07/03/21 Verito Whelan MD [address] [place], [place] 1134495 Referring Pulmonary Disease 10/04/21 Nina Grigsby MD [address] [place] [address] [place] [address] Physician Hematology/Oncology 10/25/21 Patricia Miller, SHEET METAL WORK FURNACE INSTALLER.HEALTH OFFICER [address] [facility] [place] [address] Nurse Practitioner Hematology/Oncology 10/25/21 Denita Rai, KERRY [address] [place] [address] [place] [address] Specialty Construction Driller Hematology/Oncology 10/25/21 Minna Madrigal LSW Test Consultant 01/08/23 Estella Fish, SHEET METAL WORK FURNACE INSTALLER.HEALTH OFFICER [address] [place] [address] [place] [address] Hospice & Palliative Medicine 05/22/23 Julieth Tapia RN Specialty Construction Driller Hospice & Palliative Medicine 05/22/23 Appointment Specialist Relationship Specialty Start Date End Date Enrique Esposito, SHEET METAL WORK FURNACE INSTALLER.HEALTH OFFICER [address] [place] [address] 48142 PCP - General 08/15/23 Sofie Diana MD [address] [place] [address] Primary Staff Physician Cardiology 07/03/21 Verito Whelan MD [address] [place], [place] [id number] Referring Pulmonary Disease 10/04/21 Nina Grigsby MD [address] [place] [address] [place] [address] Physician Hematology/Oncology 10/25/21 Patricia Miller, SHEET METAL WORK FURNACE INSTALLER.HEALTH OFFICER [address] [place] [address] [place] [address] Nurse Practitioner Hematology/Oncology 10/25/21 Denita Rai, RN [address] [place] [address] [place] [address] Specialty Construction Driller Hematology/Oncology 10/25/21 Minna Madrigal LSW Test Consultant 01/08/23 Estella Fish, SHEET METAL WORK FURNACE INSTALLER.HEALTH OFFICER [address] [place] [address] [place] [address] Hospice & Palliative Medicine 05/22/23 Julieth Tapia RN Specialty Construction Driller Hospice & Palliative Medicine 05/22/23 Appointment Specialist Relationship Specialty Start Date End Date Enrique Esposito, SHEET METAL WORK FURNACE INSTALLER.HEALTH OFFICER [address] [place] [address] 76936 PCP - General 08/15/23 Sofie Diana MD [address] [place] [address] Primary Staff Physician Cardiology 07/03/21 Verito Whelan MD [address] [place], [place] [id number] Referring Pulmonary Disease 10/04/21 Nina Grigsby MD [address] [place] [address] [place] [address] Physician Hematology/Oncology 10/25/21 Patricia Miller, SHEET METAL WORK FURNACE INSTALLER.HEALTH OFFICER [address] [place] [address] [place] [address] Nurse Practitioner Hematology/Oncology 10/25/21 Denita Rai, KERRY [address] [place] [address] [place] [address] Specialty Construction Driller Hematology/Oncology 10/25/21 Minna Madrigal LSW Test Consultant 01/08/23 Estella Fish, SHEET METAL WORK FURNACE INSTALLER.HEALTH OFFICER [address] [place] [address] [place] [address] Hospice & Palliative Medicine 05/22/23 Julieth Tapia RN Specialty Construction Driller Hospice & Palliative Medicine 05/22/23 Appointment Specialist Relationship Specialty Start Date End Date Enrique Esposito, SHEET METAL WORK FURNACE INSTALLER.HEALTH OFFICER [address] [place] [address] 70875 PCP - General 08/15/23 Sofie Diana MD [address] [place], [place] [id number] Primary Staff Physician Cardiology 07/03/21 Verito Whelan MD [address] [place], [place] [id number] Referring Pulmonary Disease 10/04/21 Nina Grigsby MD [address] [place] [address] [place] [address] Physician Hematology/Oncology 10/25/21 Patricia Miller, SHEET METAL WORK FURNACE INSTALLER.HEALTH OFFICER [address] [place] [address] [place] [address] Nurse Practitioner Hematology/Oncology 10/25/21 Denita Rai, KERRY [address] [place] [address] [place] [address] Specialty Construction Driller Hematology/Oncology 10/25/21 Minna Madrigal LSW Test Consultant 01/08/23 Estella Fish, SHEET METAL WORK FURNACE INSTALLER.HEALTH OFFICER [address] [place] [address] [place] [address] Hospice & Palliative Medicine 05/22/23 Julieth Tapia RN Specialty Construction Driller Hospice & Palliative Medicine 05/22/23 Appointment Specialist Relationship Specialty Start Date End Date Enrique Esposito, SHEET METAL WORK FURNACE INSTALLER.HEALTH OFFICER [address] [place] [address] 93797 PCP - General 08/15/23 Sofie Diana MD [address] [place], [place] [id number] Primary Staff Physician Cardiology 07/03/21 Verito Whelan MD [address] [place], [place] [id number] Referring Pulmonary Disease 10/04/21 Nina Grigsby MD [address] [place] [address] [place] [address] Physician Hematology/Oncology 10/25/21 Patricia Miller, SHEET METAL WORK FURNACE INSTALLER.HEALTH OFFICER [address] [place] [address] [place] [address] Nurse Practitioner Hematology/Oncology 10/25/21 Denita Rai, KERRY [address] [place] [address] [place] [address] Specialty Construction Driller Hematology/Oncology 10/25/21 Minna Madrigal LSW Test Consultant 01/08/23 Estella Fish SHEET METAL WORK FURNACE INSTALLER.HEALTH OFFICER [address] [facility] [place] [address] Hospice & Palliative Medicine 05/22/23 Julieth Tapia, RN Specialty Construction Driller Hospice & Palliative Medicine 05/22/23 Appointment Specialist Relationship Specialty Start Date End Date Enrique Esposito, SHEET METAL WORK FURNACE INSTALLER.HEALTH OFFICER [address] [place] [address] PCP - General 08/15/23 Sofie Diana MD [address] [place] [address] Primary Staff Physician Cardiology 07/03/21 Verito Whelan MD [address] [place], [place] [id number] Referring Pulmonary Disease 10/04/21 Nina Grigsby MD [address] [place] [address] [place] [address] Physician Hematology/Oncology 10/25/21 Patricia Miller, SHEET METAL WORK FURNACE INSTALLER.HEALTH OFFICER [address] [facility] [place] [address] Nurse Practitioner Hematology/Oncology 10/25/21 Denita Rai, KERRY [address] [facility] [place] [address] Specialty Construction Driller Hematology/Oncology 10/25/21 Minna Madrigal LSW Test Consultant 01/08/23 Estella Fish, SHEET METAL WORK FURNACE INSTALLER.HEALTH OFFICER [address] [facility] [place] [address] Hospice & Palliative Medicine 05/22/23 Julieth Tapia RN Specialty Construction Driller Hospice & Palliative Medicine 05/22/23 Appointment Specialist Relationship Specialty Start Date End Date Enriqeu Esposito, SHEET METAL WORK FURNACE INSTALLER.HEALTH OFFICER [address] [place] [address] 12778 PCP - General 08/15/23 Sofie Diana MD [address] [place], [place] [id number] Primary Staff Physician Cardiology 07/03/21 Verito Whelan MD [address] [place], [place] [id number] Referring Pulmonary Disease 10/04/21 Nina Grigsby MD [address] [place] [address] [place] [address] Physician Hematology/Oncology 10/25/21 Patricia Miller, SHEET METAL WORK FURNACE INSTALLER.HEALTH OFFICER [address] [place] [address] [place] [address] Nurse Practitioner Hematology/Oncology 10/25/21 Denita Rai, KERRY [address] [place] [address] [place] [address] Specialty Construction Driller Hematology/Oncology 10/25/21 Minna Madrigal LSW Test Consultant 01/08/23 Estella Fish, SHEET METAL WORK FURNACE INSTALLER.HEALTH OFFICER [address] [place] [address] [place] [address] Hospice & Palliative Medicine 05/22/23 Julieth Tapia RN Specialty Construction Driller Hospice & Palliative Medicine 05/22/23 Appointment Specialist Relationship Specialty Start Date End Date Enrique Esposito, SHEET METAL WORK FURNACE INSTALLER.HEALTH OFFICER [address] [place] [address] 99024 PCP - General 08/15/23 Sofie Diana MD [address] [place], [place] [id number] Primary Staff Physician Cardiology 07/03/21 Verito Whelan MD [address] [place] [address] Referring Pulmonary Disease 10/04/21 Nina Grigsby MD [address] [place] [address] [place] [address] Physician Hematology/Oncology 10/25/21 Patricia Miller, SHEET METAL WORK FURNACE INSTALLER.HEALTH OFFICER [address] [place] [address] [place] [address] Nurse Practitioner Hematology/Oncology 10/25/21 Denita Rai, KERRY [address] [place] [address] [place] [address] Specialty Construction Driller Hematology/Oncology 10/25/21 Minna Madrigal LSW Test Consultant 01/08/23 Estella Fish, SHEET METAL WORK FURNACE INSTALLER.HEALTH OFFICER [address] [place] [address] [place] [address] Hospice & Palliative Medicine 05/22/23 Julieth Tapia, RN Specialty Construction Driller Hospice & Palliative Medicine 05/22/23 Appointment Specialist Relationship Specialty Start Date End Date Enrique Esposito, SHEET METAL WORK FURNACE INSTALLER.HEALTH OFFICER [address] [place] [address] 52525 PCP - General 08/15/23 Sofie Diana MD [address] [place], [place] [id number] Primary Staff Physician Cardiology 07/03/21 Verito Whelan MD [address] [place], [place] [id number] Referring Pulmonary Disease 10/04/21 Nina Grigsby MD [address] [place] [address] [place] [address] Physician Hematology/Oncology 10/25/21 Patricia Miller, SHEET METAL WORK FURNACE INSTALLER.HEALTH OFFICER [address] [place] [address] [place] [address] Nurse Practitioner Hematology/Oncology 10/25/21 Denita Rai, KERRY [address] [place] [address] [place] [address] Specialty Construction Driller Hematology/Oncology 10/25/21 Minna Madrigal LSW Test Consultant 01/08/23 Estella Fish, SHEET METAL WORK FURNACE INSTALLER.HEALTH OFFICER [address] [place] [address] [place] [address] Hospice & Palliative Medicine 05/22/23 Julieth Tapia, RN Specialty Construction Driller Hospice & Palliative Medicine 05/22/23 Appointment Specialist Relationship Specialty Start Date End Date Enrique Esposito, SHEET METAL WORK FURNACE INSTALLER.HEALTH OFFICER [address] [place] [address] 45537 PCP - General 08/15/23 Sofie Diana MD [address] [place] [address] Primary Staff Physician Cardiology 07/03/21 Verito Whelan MD [address] [place] [address] Referring Pulmonary Disease 10/04/21 Nina Grigsby MD [address] [place] [address] [place] [address] Physician Hematology/Oncology 10/25/21 Patricia Miller, SHEET METAL WORK FURNACE INSTALLER.HEALTH OFFICER [address] [place] [address] [place] [address] Nurse Practitioner Hematology/Oncology 10/25/21 Denita Rai, KERRY [address] [facility] [place] [address] Specialty Construction Driller Hematology/Oncology 10/25/21 Minna Madrigal LSW Test Consultant 01/08/23 Estella Fish, SHEET METAL WORK FURNACE INSTALLER.HEALTH OFFICER [address] [facility] [place] [address] Hospice & Palliative Medicine 05/22/23 Julieth Tapia, RN Specialty Construction Driller Hospice & Palliative Medicine 05/22/23 Team Status: [...] March 19, 2024 End: March 20, 2024 Appointment Specialist Relationship Specialty Start Date End Date Enrique Esposito, SHEET METAL WORK FURNACE INSTALLER.HEALTH OFFICER [address] [place] [address] 99276 PCP - General 08/15/23 Sofie Diana MD [address] [place] [address] Primary Staff Physician Cardiology 07/03/21 Verito Whelan MD [address] [place], [place] [id number] Referring Pulmonary Disease 10/04/21 Nina Grigsby MD [address] [place] [address] [place] [address] Physician Hematology/Oncology 10/25/21 Patricia Miller, SHEET METAL WORK FURNACE INSTALLER.HEALTH OFFICER [address] [place] [address] [place] [address] Nurse Practitioner Hematology/Oncology 10/25/21 Denita Rai, KERRY [address] [place] [address] [place] [address] Specialty Construction Driller Hematology/Oncology 10/25/21 Minna Madrigal LSW Test Consultant 01/08/23 Estella Fish, SHEET METAL WORK FURNACE INSTALLER.HEALTH OFFICER [address] [place] [address] [place] [id number] Hospice & Palliative Medicine 05/22/23 Julieth Tapia RN Specialty Construction Driller Hospice & Palliative Medicine 05/22/23 Appointment Specialist Relationship Specialty Start Date End Date Enrique Esposito, SHEET METAL WORK FURNACE INSTALLER.HEALTH OFFICER [address] [place] [address] [phone] PCP - General 08/15/23 Sofie Diana MD [address] [place], [place] [phone] Primary Staff Physician Cardiology 07/03/21 Verito Whelan MD [address] [place], [place] [id number] Referring Pulmonary Disease 10/04/21 Nina Grigsby MD [address] [facility] [place] [address] Physician Hematology/Oncology 10/25/21 Patricia Miller, SHEET METAL WORK FURNACE INSTALLER.HEALTH OFFICER [address] [facility] [place] [address] Nurse Practitioner Hematology/Oncology 10/25/21 Denita Rai, KERRY [address] [place] [address] [place] [address] Specialty Construction Driller Hematology/Oncology 10/25/21 Minna Madrigal LSW Test Consultant 01/08/23 Estella Fish, SHEET METAL WORK FURNACE INSTALLER.HEALTH OFFICER [address] [facility] [place] [phone] Hospice & Palliative Medicine 05/22/23 Julieth Tapia, RN Specialty Construction Driller Hospice & Palliative Medicine 05/22/23 Appointment Specialist Relationship Specialty Start Date End Date Enrique Esposito, SHEET METAL WORK FURNACE INSTALLER.HEALTH OFFICER [address] [place] [address] 21522 PCP - General 08/15/23 Sofie Diana MD [address] [place] [address] Primary Staff Physician Cardiology 07/03/21 Verito Whelan MD [address] [place] [address] Referring Pulmonary Disease 10/04/21 Nina Grigsby MD [address] [facility] [place] [address] Physician Hematology/Oncology 10/25/21 Patricia Miller, SHEET METAL WORK FURNACE INSTALLER.HEALTH OFFICER [address] [facility] [place] [address] Nurse Practitioner Hematology/Oncology 10/25/21 Denita Rai, KERRY [address] [facility] [place] [address] Specialty Construction Driller Hematology/Oncology 10/25/21 Minna Madrigal LSW Test Consultant 01/08/23 Estella Fish, SHEET METAL WORK FURNACE INSTALLER.HEALTH OFFICER [address] [facility] [place] [address] Hospice & Palliative Medicine 05/22/23 Julieth Tapia, RN Specialty Construction Driller Hospice & Palliative Medicine 05/22/23 Appointment Specialist Relationship Specialty Start Date End Date Enrique Esposito, SHEET METAL WORK FURNACE INSTALLER.HEALTH OFFICER [address] [place] [address] PCP - General 08/15/23 Sofie Diana MD [address] [place] [address] Primary Staff Physician Cardiology 07/03/21 Verito Whelan MD [address] [place] [address] Referring Pulmonary Disease 10/04/21 Nina Grigsby MD [address] [place] [address] [place] [address] Physician Hematology/Oncology 10/25/21 Patricia Miller, SHEET METAL WORK FURNACE INSTALLER.HEALTH OFFICER [address] [place] [address] [place] [address] Nurse Practitioner Hematology/Oncology 10/25/21 Denita Rai, KERRY [address] [facility] [place] [address] Specialty Construction Driller Hematology/Oncology 10/25/21 Minna Madrigal LSW Test Consultant 01/08/23 Estella Fish, SHEET METAL WORK FURNACE INSTALLER.HEALTH OFFICER [address] [place] [address] [place] [address] Hospice & Palliative Medicine 05/22/23 Julieth Tapia, RN Specialty Construction Driller Hospice & Palliative Medicine 05/22/23 Appointment Specialist Relationship Specialty Start Date End Date Enrique Esposito, SHEET METAL WORK FURNACE INSTALLER.HEALTH OFFICER [address] [place] [address] PCP - General 08/15/23 Sofie Diana MD [address] [place] [address] Primary Staff Physician Cardiology 07/03/21 Verito Whelan MD [address] [place] [address] Referring Pulmonary Disease 10/04/21 Nina Grigsby MD [address] [place] [address] [place] [address] Physician Hematology/Oncology 10/25/21 Patricia Miller APRN.HEALTH OFFICER [address] [place] [address] [place] [address] Nurse Practitioner Hematology/Oncology 10/25/21 Denita Rai, KERRY [address] [place] [address] [place] [address] Specialty Construction Driller Hematology/Oncology 10/25/21 Minna Madrigal LSW Test Consultant 01/08/23 Estella Fish SHEET METAL WORK FURNACE INSTALLER.HEALTH OFFICER [address] [place] [address] [place] [address] Hospice & Palliative Medicine 05/22/23 Julieth Tapia, RN Specialty Construction Driller Hospice & Palliative Medicine 05/22/23 Reason for Visit (unrecogniz ed section and content) Reason Comments Pain Specialty Diagnoses / Procedures Referred By Contac t Referred To Contact Hospice & Palliative Medicine / PALLIATIVE MEDICINE Diagnoses 3 month follow up Procedures OFFICE/OUTPATIENT ESTABLISHED HIGH MDM 40 MIN EST PATIENT Estella Fish SHEET METAL WORK FURNACE INSTALLER.HEALTH OFFICER [address] [facility] [place] [address] Estella Fish SHEET METAL WORK FURNACE INSTALLER.HEALTH OFFICER [address] [place] [address] Referral ID Status Reason Start Date Expiration Date V isits Requested Visits Authorized [id number] Authorized 10/29/2023 07/20/2024 99 99 Reason Comments Nutrition Assessment Specialty Diagnoses / Procedures Referred By Contac t Referred To Contact Nutrition / NUTRI SAND Diagnoses Nutri appt Procedures OFFICE/OUTPATIENT ESTABLISHED MOD MDM 30 MIN EST PATIENT Self Dominique Murphy, RD [address] [place] [address] Referral ID Status Reason Start Date Expiration Date Visits Re quested Visits Authorized [id number] Closed 10/20/2023 07/20/2024 1 1 Reason Comments [...] ESTABLISHED SF MDM 10 MIN EST PATIENT CateEnrique Jaci, SHEET METAL WORK FURNACE INSTALLER.HEALTH OFFICER [address] [place] [address] Nina Grigsby MD [address] [place] [address] [place] [address] Referral ID Status Reason Start Date Expiration Date Visits Re quested Visits Authorized [id number] Closed 09/04/2023 07/20/2024 1 1 Specialty Diagnoses / Procedures Referred By Contac t Referred To Contact Radiation Oncology / RADIATION ONCOLOGY Diagnoses 2 Week Post XRT Procedures EST POST 90 DAY RAD TX Hector Limon MD [address] [facility] [place] [address] Hector Limon MD [address] [place] [address] [place] [address] Referral ID Status Reason Start Date Expiration Date V isits Requested Visits Authorized [id number] Authorized 11/12/2022 07/20/2023 99 99 Specialty Diagnoses / Procedures Referred By Contac t Referred To Contact [facility] Diagnoses Malignant neoplasm of upper lobe, left bronchus or lung Procedures REFERRAL TO [facility] FINANCIAL COUNSELOR Nina Grigsby MD [address] [place] [address] [place] [address] [facility] [address] [place] [address] Referral ID Status Reason Start Date Expiration Date Visits Requested Visits Authorized [id number] Pending Review Financial Clearance Required - OON [...] (HCC) Procedures CONSULT TO ONCOLOGY OFFICE/OUTPATIENT [employer] [facility] [facility] 60-74 MINUTES Aracelis Carrillo, SHEET METAL WORK FURNACE INSTALLER.HEALTH OFFICER [address] [place] [address] Referral ID Status Reason Start Date Expiration Date V isits Requested Visits Authorized [id number] Closed PCP Requested Referral 10/11/2021 10/11/2022 1 [...] left lung (HCC) Procedures RAD/ONC CONSULT OFFICE/OUTPATIENT [facility] 60-74 MINUTES Nina Grigsby MD [address] [place] [address] [place] [address] Referral ID Status Reason Start Date Expiration Date V isits Requested Visits Authorized [id number] Closed PCP Requested Referral 10/22/2021 10/22/2022 1 1 Reason Comments Lab Orders Specialty Diagnoses / Procedures Referred By Contac t Referred To Contact Diagnoses Malignant neoplasm of upper lobe of left lung (HCC) Procedures PALONOSETRON HCL CISPLATIN 10 MG INJECTION DIPHENHYDRAMINE HCL INJECTIO INJECTION, PEMETREXED, NOT OTHERWISE SPECIFIED, 10 MG Nina Grigsby MD [address] [place] [address] [place] [address] Kristofer Treat Jose [address] [place] [address] Referral ID Status Reason Start Date Expiration Date V isits Requested Visits Authorized [id number] Authorized 10/22/2021 01/15/2022 4 4 Reason Comments [...] By Contac t Referred To Contact [facility] Diagnoses Malignant neoplasm of upper lobe, left bronchus or lung Procedures REFERRAL TO [facility] FINANCIAL COUNSELOR Nina Grigsby MD [address] [place] [address] [place] [address] [facility] [address] [facility] [place] [address] Reason Comments Results hypokalemia Reason Comments Spirometry Specialty Diagnoses / Procedures Referred By Contac t Referred To Contact [facility] Diagnoses Chronic obstructive pulmonary disease, unspecified COPD type (HCC) Lung nodule Procedures LUNG DIFFUSION CAPACITY (DLCO) DIFFUSING CAPACITY Verito Whelan MD [address] [place] [address] [place] [address] Referral ID Status Reason Start Date Expiration Date V Kloudlessts Requested Visits Authorized [id number] Closed Auto-Generate d Referral 11/09/2021 10/11/2022 1 1 Specialty Diagnoses / Procedures Referred By Contac t Referred To Contact [facility] Diagnoses Chronic obstructive pulmonary disease, unspecified COPD type (HCC) Lung nodule Procedures SPIROMETRY WITH DILATOR IF OBSTRUCTED BRNCDILAT RSPSE SPMTRY PRE&POST-BRNCDILAT ADMN Verito Whelan MD [address] [place] [address] Respiratory [place] [id number] Referral ID Status Reason Start Date Expiration Date V isits Requested Visits Authorized [id number] Closed Auto-Generate d Referral 11/09/2021 10/11/2022 1 [...] left lung (HCC) Nina Grigsby MD [address] [facility] [place] [address] Kristofer Treat Jose[address] [place] [address] Referral ID Status Reason Start Date Expiration Date V isits Requested Visits Authorized [id number] Authorized 10/16/2022 01/14/2023 99 99 Reason Comments [...] 90 DAY RAD TX Hector Limon MD [address] [place] [address] [place] [address] Hector Limon MD [address] [place] [address] [place] [address] Reason Comments Lung Cancer Treatment visit Reason [...] STEM W/O W/CONTRAST MATERIAL Renetta Ponce MD [address] [place] [address] [facility] [place] [address] Referral ID Status Reason Start Date Expiration Date V isits Requested Visits Authorized [id number] Closed Auto-Generate d Referral 10/26/2021 11/18/2021 1 1 Reason Comments Follow Up Pet scan results Specialty Diagnoses / Procedures Referred By Contac t Referred To Contact Ent - Otolaryngology Diagnoses Tonsillar mass Procedures CONSULT TO ENT OFFICE/OUTPATIENT [facility] 60-74 MINUTES Nina Grigsby MD [address] [place] [address] [place] [address] Referral ID Status Reason Start Date Expiration Date V isits Requested Visits Authorized [id number] Closed PCP Requested Referral 05/13/2023 05/12/2024 1 [...] Procedures CONSULT TO PALLIATIVE CARE OFFICE/OUTPATIENT [employer] [facility] 60-74 MINUTES Patricia Miller, SHEET METAL WORK FURNACE INSTALLER.HEALTH OFFICER [address] [facility] [place] [address] [place] [facility] [address] [place] [address] Referral ID Status Reason Start Date Expiration Date V isits Requested Visits Authorized [id number] Closed PCP Requested Referral 05/15/2023 05/14/2024 1 1 Reason Comments Care Coordination TSH Result Reason Comments Nutrition Assessment No show Reason Onset Date Comments Refill Request 10/20/2023 Specialty Diagnoses / Procedures Referred By Contac t Referred To Contact Hematology / HEMATOLOGY/ONCOLOGY Diagnoses Follow-up exam 4 week follow up - [facility] oral med Procedures OFFICE/OUTPATIENT ESTABLISHED HIGH MDM 40 MIN EST PATIENT Enrique Esposito, SHEET METAL WORK FURNACE INSTALLER.HEALTH OFFICER [address] [place] [address] Nina Grigsby MD [address] [place] [address] [place] [address] Referral ID Status Reason Start Date Expiration Date V isits Requested Visits Authorized [id number] Authorized 10/20/2023 07/20/2024 99 99 Reason Comments [...] MDM 10 MIN EST PATIENT Enrique Esposito, SHEET METAL WORK FURNACE INSTALLER.HEALTH OFFICER [address] [place] [address] Nina Grigsby MD [address] [place] [address] [place] [address] Reason Comments Care Coordination Call Request Reason Comments Care Coordination Appointments Specialty Diagnoses / Procedures Referred By Contac t Referred To Contact Hospice & Palliative Medicine / PALLIATIVE MEDICINE Diagnoses 3 month follow up Procedures OFFICE/OUTPATIENT ESTABLISHED HIGH MDM 40 MIN EST PATIENT Estella Fish, SHEET METAL WORK FURNACE INSTALLER.HEALTH OFFICER [address] [facility] [place] [address] Estella Fish, SHEET METAL WORK FURNACE INSTALLER.HEALTH OFFICER [address] [place] [address] Reason Comments Orders Reason Comments Research IRB [id number] Case11 [id number] Informed Consent Reason Onset Date Comments Simulation Request Form 12/02/2023 Consult Specialty Diagnoses / Procedures Referred By Contac t Referred To Contact Radiation Oncology / RADIATION ONCOLOGY Diagnoses New pain Procedures EST PATIENT NEW PROBLEM Pcp, No, SHEET METAL WORK FURNACE INSTALLER Hector Limon MD [address] [facility] [place] [address] Referral ID Status Reason Start Date Expiration Date V isits Requested Visits Authorized [id number] Authorized 12/02/2023 07/20/2024 99 99 Reason Comments [...] NEW LUNG CANCER Nina Grigsby MD [address] [facility] [place] [address] [place] [address] [place] [address] Referral ID Status Reason Start Date Expiration Date Visits Re quested Visits Authorized [id number] Closed 02/20/2024 07/20/2024 1 1 Specialty Diagnoses [...] ESTABLISHED SF MDM 10 MIN EST PATIENT Cate Enriqueronald Ramos, SHEET METAL WORK FURNACE INSTALLER.HEALTH OFFICER [address] [place] [address] Nina Grigsby MD [address] [facility] [place] [address] Reason Comments Radiology NM Specialty Diagnoses / Procedures [facility] Referred To Contact MOLECULAR & FUNCTIONAL IMAGING Diagnoses 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 Swelling of arm Cancer associated pain Procedures NM PET/CT SKULL-THIGH SUBSEQUENT PET IMAGING CT ATTENUATION SKULL BASE MID-THIGH Yusef Pandya, AMRITA [address] [place] [address] [place] [address] Molecular & Functional Imaging [address] [place] [address] Referral ID Status Reason Start Date Expiration Date V isits Requested Visits Authorized [id number] Closed Auto-Generate d Referral 02/03/2024 03/04/2025 1 1 Specialty Diagnoses / Procedures Referred By Contac t Referred To Contact RADIATION ONCOLOGY Diagnoses Malignant neoplasm of upper lobe of left lung (HCC) 15 FX plus sim IMRT Procedures CT SIM PLANNING RADIATION ONCOLOGY THER RAD SIMULAJ-AIDED FIELD SETTING COMPLEX INTENSITY MODULATED RADIATION TX DLVR COMPLEX 15 FX plus sim IMRT Hector Limon MD [address] [place] [address] [place] [address] Paul Mendez [address] [place] [address] Referral ID Status Reason Start Date Expiration Date Visits Requested Visits Authorized [id number] Authorized PCP Requested Referral 12/03/2023 06/03/2024 16 16 Specialty Diagnoses / Procedures Referred By Contac t Referred To Contact MOLECULAR & FUNCTIONAL IMAGING Diagnoses 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) Procedures NM PET/CT SKULL-THIGH SUBSEQUENT PET IMAGING CT ATTENUATION SKULL BASE MID-THIGH Nina Grigsby MD [address] [place] [address] [place] [address] Molecular & Functional Imaging [address] [place] [address] Referral ID Status Reason Start Date Expiration Date V isits Requested Visits Authorized [id number] Closed Auto-Generate d Referral 11/04/2023 12/03/2024 1 1 Specialty Diagnoses / Procedures Referred By Contac t Referred To Contact CT IMAGING Diagnoses 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 [employer] provides no warranty or guarantee of the accuracy or completeness of information in this document.
[2024-04-02 03:13] LABS: Hematocrit 26.1 % (42.0-54.0); Hemoglobin 8.5 g/dL (14.0-18.0); Mean Corpuscular HGB Conc 32.6 g/dL (29.9-35.2); Mean Corpuscular Hemoglobin 30.1 pg (25.9-34.0); Mean Corpuscular Volume 92.6 fL (80.0-94.0); Mean Platelet Volume 10.7 fL (9.5-13.5); Platelet Count 228 10^3/uL (150-450); Red Blood Count 2.82 10^6/uL (4.70-6.10); Red Cell Distribution Width 13.5 % (11.0-15.0); White Blood Count 7.3 10^3/uL (4.0-11.0)
[2024-04-02 03:28] LABS: ABG PCO2 31.8 mmHg (35.0-45.0); HCO3 ABG 26.3 mmol/L (22.0-26.0); PO2 ABG 62.3 mmHg (80.0-100.0)
[2024-04-02 03:29] LABS: Allen Test POSITIVE (POSITIVE); Base Excess ABG 3.5 mmol/L (-2.0-2.0); Liters per Minute 3; O2 Mode NASAL CANNULA; Oxygen Saturation ABG 93.4 %; Puncture Site R BRACHIAL; pH ABG 7.526 (7.350-7.450)
[2024-04-02 03:31] LABS: Troponin I High Sensitivity 31.8 pg/mL (4.0-76.1)
[2024-04-02] MEDS: LORAZEPAM 2 MG/ML VIAL 1 MG IV ×2 (03:31→05:04)
[2024-04-02 03:32] LABS: Ethanol <3 mg/dL
[2024-04-02 03:33] LABS: BUN Creatinine Ratio 39.1; Calcium 8.8 mg/dL (8.5-10.1); Carbon Dioxide 31.4 mmol/L (21.0-32.0); Chloride 102 mmol/L (98-107); Estimated GFR (African America >60 (>=60); Estimated GFR (Non-African Ame >60 (>=60); Glucose 115 mg/dL (74-106); Potassium 3.4 mmol/L (3.5-5.1); Sodium 140 mmol/L (136-145)
--- NOTE | 2024-04-02 03:35 | CT_ITS ---
The [address] [address] Patient Name: CRISTAL BARRY MRN: [id number] date: 1955 Sex: M Assigned Patient Location: ER Current Patient Location: Accession/Order Number: [id number] Exam Date: 04/02/2024 04:30 Report Date: 04/02/2024 05:15 At the request of: MISTI EISENBERG Procedure: CT angio chest CTA OF THE CHEST WITH CONTRAST: 04/02/2024 4:30 AM EDT HISTORY: Short of breath. History of known recent documented acute PE on CTA chest 03/28/2024 on the right. Patient with known lung cancer. TECHNIQUE: Initially, thin section noncontrast images through portions of the chest were obtained for the purpose of establishing proper bolus timing of contrast. Subsequently, thin section axial CT images were obtained through the chest after intravenous administration of 100 cc of Omnipaque 350. To optimally assess the thoracic vasculature, the original axial data was used to create 3D volume rendered, multiplanar reformatted and/or maximum intensity projection images in various planes. The axial and reformatted data were reviewed for this report. Dose reduction techniques were achieved by using automated exposure control and/or adjustment of mA and/or kV according to patient size and/or use of iterative reconstruction technique. COMPARISON: None. FINDINGS: Bolus opacification of the pulmonary arteries was adequate for purposes of diagnosis. There is redemonstration of acute PE involving the posterior medial basilar segmental branches of right lower lobe unchanged from 03/28/2024. No appreciable acute right heart strain. No central or saddle embolus. No new right-sided PE or left-sided PE. Heart is mildly enlarged. Thoracic aorta is normal in caliber with minor calcific plaque at the arch. No dissection or aneurysm. Patient status post sternotomy and CABG. No pericardial fluid. Thyroid gland remains unremarkable. Redemonstration of stable right hilar mass and/or adenopathy. Large right hilar mass extends 4.7 cm transverse and 3.2 cm AP. There are multiple spiculated masses within the right lower lobe. One anteriorly and largest posteriorly. Anterior spiculated mass measures approximately 1.5 x 1.5 cm.] Lower lobe mass again noted extending at least 2.6 cm x 1.6 cm with more central of a masslike opacities measuring 1.7 cm x 1 cm. There is extensive interstitial changes throughout right lower lobe likely reflecting lymphangitic spread of carcinoma. This has improved from previous suggesting there may have been superimposed infection or inflammation. The right hilar mass crosses the right major fissure and abuts the right measure fissure extending in the right middle lobe as well. There is some chronic interstitial changes in the right upper lobe and right middle lobe. There is redemonstration of large left lung mass at left hilar level unchanged measuring approximately 3.3 cm AP and transverse 3.7 cm on axial scans. Changes of previous partial left pneumonectomy with chronic left apical pleural thickening and/or chronic loculated pleural fluid anterior left lung. No acute left lung consolidation. Scarring at left lung base. No other left lung after malady of parenchyma. There is bilateral COPD and pulmonary emphysematous disease. No pleural effusions or pneumothoraces. No lytic or blastic bone lesion or fracture. Upper abdomen demonstrates normal adrenal glands. Liver is negative. No body wall mass or axillary adenopathy. CT/CT angio chest IMPRESSION: 1. Stable appearance of now subacute segmental and subsegmental right lower lobe branch PE. No new thromboembolic disease or developing right heart strain. 2. Redemonstration of multiple malignant masses in the right hilum and inferior right lower lobe extending to several areas in the right lower lobe with probable component of lymphangitic spread of cancer in the right lower lobe. Compared with 03/28/2024, degree of interstitial pattern of disease has improved slightly. Some of this may be due to previous fluid overload and edema from PE. Attention on follow-up imaging. 3. There remains some mild chronic interstitial disease at the right upper lobe and middle lobe. 4. Persistent large malignant left lung central solid mass in lower lobe near left hilar/infrahilar region. Stable chronic changes of partial left lung pneumonectomy. 5. No new findings compared with 03/28/2024 6. COPD and pulmonary emphysema. 7. Prior CABG. Electronically authenticated by: DEIRDRE SHINE Date: 04/02/2024 05:15
[2024-04-02 03:54] LABS: Segmented Neut Absolute Manual 6.78 10^3/uL (1.4-6.5)
[2024-04-02 03:55] LABS: Atypical Lymphocytes Abs Man 0.14; Band Neutrophils Absolute 0.1 10^3/uL (0.0-0.3); Hypochromasia 3+; Lymphocytes Absolute Manual 0.21 10^3/uL (1.20-3.80); Monocytes Absolute Manual 0.07 10^3/uL (0.30-0.80); Toxic Granulation 2+
[2024-04-02 03:58] LABS: Ammonia <10 umol/L (11-32)
--- NOTE | 2024-04-02 03:58 | PC.NURSE ---
Patient remains restless and anxious, continues to pull at clothing, oxygen and monitoring equipment. IV ativan offers no relief for anxiety and restlesness.
[2024-04-02 04:01] LABS: Alanine Aminotransferase 42 U/L (16-63); Albumin Globulin Ratio 0.6; Albumin Level 2.4 g/dL (3.4-5.0); Alkaline Phosphatase 70 U/L (46-116); Aspartate Amino Transferase 18 U/L (15-37); Bilirubin Direct 0.2 mg/dL (0.0-0.2); Bilirubin Total 0.8 mg/dL (0.2-1.0); Globulin 3.7 g/dL; Total Protein 6.1 g/dL (6.4-8.2)
[2024-04-02] MEDS: HALOPERIDOL LACTATE 5 MG/ML VIAL IV (04:08)
[2024-04-02 06:02] LABS: Bilirubin Urine NEGATIVE (NEGATIVE); Blood Urine NEGATIVE (NEGATIVE); Clarity Urine CLEAR (CLEAR); Color Urine LT. YELLOW (YELLOW); Glucose Urine UA 100 mg/dL (NEGATIVE); Ketones Urine NEGATIVE (NEGATIVE); Leukocyte Esterase Urine NEGATIVE (NEGATIVE); Nitrite Urine NEGATIVE (NEGATIVE); Protein Urine NEGATIVE (NEG/TRACE); Urobilinogen Urine 0.2 EU/dL (0.2-1.0); pH Urine 6.5 (5.0-9.0)
[2024-04-02 06:03] LABS: Urine Microscopic Indicated NO
--- NOTE | 2024-04-02 06:24 | PC.NURSE ---
Call placed to Vince Emerson and voicemail full, unable to leave message. Call placed to Son Rashaad and message left to call the ER to discuss admission versus discharge to home.
[2024-04-02] MEDS: HYDRALAZINE HCL 20 MG/ML VIAL 10 MG IVP (08:39)
--- NOTE | 2024-04-02 09:07 | ECG_ITS ---
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
[2024-04-02] MEDS: METOPROLOL TARTRATE 5 MG/5 ML VIAL IVP (09:14)
[2024-04-02 10:04] LABS: Ammonia <10 umol/L (11-32)
--- NOTE | 2024-04-02 10:18 | CM.NOTE ---
Rounds made with Dr. Causey, pt unable to answer any questions. Pt's eyes open, respirations labored and skin diaphoretic. No discharge today. Dr. Causey will speak with pt's son regarding plan of care and assessment findings.
[2024-04-02] MEDS: LEVOFLOXACIN 750 MG TABLET PO (10:23)
[2024-04-02] MEDS: ISOSORBIDE MONONITRATE 30 MG TAB.ER.24H PO (10:23)
[2024-04-02] MEDS: POTASSIUM CHLORIDE 10 MEQ ER TABLET 40 MEQ PO (10:23)
[2024-04-02] MEDS: ATORVASTATIN CALCIUM 40 MG TABLET PO (10:23)
[2024-04-02] MEDS: APIXABAN 5 MG TABLET 10 MG PO ×2 (10:23→21:33)
[2024-04-02] MEDS: CLOPIDOGREL BISULFATE 75 MG TABLET PO (10:23)
[2024-04-02] MEDS: VENLAFAXINE HCL ER 37.5 MG CAPSULE PO (10:24)
[2024-04-02] MEDS: METOPROLOL TARTRATE 25 MG TABLET 50 MG PO ×2 (10:24→21:33)
[2024-04-02] MEDS: CILOSTAZOL 100 MG TABLET PO ×2 (10:24→21:33)
--- NOTE | 2024-04-02 11:24 | PM.HP ---
HPI H&P: HPI History of Present Illness Chief complaint: SOB, ALTERED MENTAL STATUS, LUNG CANCER Narrative: 69 y o male with metastatic lung cancer, recently discharged from the hospital for PE/COPD exacerbation and Pneumonia brought in by his family for change in mental status. At baseline, patient is alert and oriented. According to family, patient is increasingly confused, agitated, and would take off his O2 repeatedly. He is also experiencing intermittent hallucinations. Patient was also noted to have increased work of breathing with RR in high 20s, worsening hypoxia with pulse Ox as low as 86% on home O2. As he arrived on floor, he was diaphoretic, with HR as high as 150, poorly controlled BP and was having a difficult time breathing. He received IV hydralazine and lopressor and was switched to venti mask and is currently on 12 L O2 with pulse Ox running around 90-92%. Patient's mental status fluctuates but he never returns to his baseline. He is confused, his speech is slurred/incomprehensible and periodically he becomes too drowsy and lethargic to wake up to painful stimulus. Work up in ED did not reveal any acute finding with no sig changes on CTA chest/CTH and no sig abnormality noted on CBC/CMP. His ammonia is normal and he is not hypercapnic. I had a detailed discussed with patient's family - his two sons - Rashaad and Pedro Sheldon who are leaning towards CC measures and hospice consultation given his metastatic lung cancer, physical decline and failure to thrive. However, they will get back to me after they have had discussion with all family members and plan to visit the patient this afternoon Opioid HPI Opioid Management Most Recent Pain and Opioid Data: Last Pain Scale 5 04/02/24 09:27 Last Pain Intensity 5 04/02/24 09:27 Last Pain Assessment 04/02/24 11:21 Last MAR Pain Assessment 03/30/24 05:23 Last ORT Total Score 0 04/02/24 09:25 Last ORT Risk Category Low Risk 04/02/24 09:25 Review of Systems ROS Status of ROS unobtainable due to mental status [facility] Medical History (Updated 04/02/24 @ 11:48 by Shaikh Marium MD) HLD (hyperlipidemia) ?E78.5 - Hyperlipidemia, unspecified (ICD-10) COPD (chronic obstructive pulmonary disease) ?J44.9 - Chronic obstructive pulmonary disease, unspecified (ICD-10) Metastatic non-small cell lung cancer ?C34.90 - Malignant neoplasm of unspecified part of unspecified bronchus or lung (ICD-10) History of pulmonary embolism ?Z86.711 - Personal history of pulmonary embolism (ICD-10) CAD (coronary artery disease) ?I25.10 - Atherosclerotic heart disease of [place] coronary artery without angina pectoris (ICD-10) PAD (peripheral artery disease) ?I73.9 - Peripheral vascular disease, unspecified (ICD-10) Surgical History (Updated 03/28/24 @ 11:54 by Shaikh Marium MD) H/O pneumonectomy ?Z98.890 - Other specified postprocedural states (ICD-10) ?Z90.2 - Acquired absence of lung [part of] (ICD-10) Hx of CABG ?Z95.1 - Presence of aortocoronary bypass graft (ICD-10) Social History (Updated 03/28/24 @ 11:55 by Shaikh Marium MD) Within the past year, how often did you have a drink containing alcohol: monthly or less Within the past year, how many standard drinks containing alcohol did you have on a typical day: 1 or 2 Within the past year, how often did you have six or more drinks on one occasion: never Total score: 0 Score interpretation: A score less than 4 is consistent with normal alcohol consumption. Smoking status: Former smoker Non-prescribed substance use: denies use Highest level of school completed/degree received: high school graduate Little interest or pleasure in doing things: several days Feeling down, depressed, or hopeless: not at all Meds Home Medications and Allergies Home Medications ?Medication ?Instructions ?Recorded ?Confirmed ?Type atorvastatin 40 mg tablet 40 mg PO DAILY 07/05/23 04/02/24 History cilostazol 100 mg tablet 100 mg PO BID 07/05/23 04/02/24 History clopidogrel 75 mg tablet 75 mg PO DAILY 07/05/23 04/02/24 History isosorbide mononitrate 30 mg 30 mg PO DAILY 07/05/23 04/02/24 History tablet,extended release 24 hr metoprolol tartrate 25 mg tablet 50 mg PO Q12H 07/05/23 04/02/24 History sotorasib 320 mg tablet (Lumakras) 960 mg PO Q24H 07/05/23 04/02/24 History albuterol sulfate 90 mcg/actuation 2 puff inhalation Q4H PRN 03/28/24 04/02/24 History aerosol inhaler shortness of breath or wheezing fentanyl 100 mcg/hr transdermal 1 patch topical Q72H 03/28/24 04/02/24 History patch gabapentin 100 mg capsule 100 mg PO TID 03/28/24 04/02/24 History olanzapine 10 mg tablet 10 mg PO .QHS 03/28/24 04/02/24 History venlafaxine 37.5 mg 37.5 mg PO .QD 03/28/24 04/02/24 History capsule,extended release 24 hr apixaban 5 mg tablet (Eliquis) 5 mg PO BID #60 tabs 03/30/24 04/02/24 Rx levofloxacin 750 mg tablet 750 mg PO DAILY 5 days #5 tabs 03/30/24 04/02/24 Rx prednisone 20 mg tablet 20 mg PO BID 5 days #10 tabs 03/30/24 04/02/24 Rx Allergies Allergy/AdvReac Type Severity Reaction Status Date / Time No Known Drug Allergies Allergy Verified 04/02/24 02:32 Exam Constitutional Vital Signs, click to edit/add: Last Vital Signs Temp 98.1 F 04/02/24 10:15 Pulse 109 H 04/02/24 10:15 Resp 22 H 04/02/24 10:15 BP 201/102 H 04/02/24 10:15 Pulse Ox 92 L 04/02/24 10:30 O2 Del Method Venturi Mask 04/02/24 10:30 O2 Flow Rate 12 04/02/24 10:30 FiO2 45 04/02/24 10:30 General appearance: in distress moderate, lethargic, ill appearing and frail appearing Orientation/consciousness: Yes confused and Yes lethargic HENMT Common normals: normocephalic and head/scalp atraumatic Respiratory Effort & inspection: tachypneic, respiratory distress and decreased respiratory effort Auscultation: diminished lung sounds Other: No sig wheezing or rhonchi. diminished lung sounds. Cardio Common normals: no JVD, regular rhythm, S1 normal heart sound and S2 normal heart sound Rate: tachycardic GI Common normals: Normal to inspection, nondistended, normoactive bowel sounds present, soft to palpation, non-tender and no hepatosplenomegaly Extremity Common normals: normal to inspection and full ROM Neuro Yamini Coma Scale: document GCS findings [place] coma scale eye opening: Spontaneous [place] coma scale verbal response: Confused [place] coma scale motor response: Localising [place] coma scale total score: 13 Common normals: moves all extremities Sensorium/orientation: orientation impaired, lethargic, somnolent and fluctuating sensorium Speech: abnormal speech Gait (neuro): unable to assess gait Psych Speech: incoherent Thought process: disorganized and confused Insight: poor Judgement: poor Results Labs Labs: Short CBC 04/02/24 Range/Units 02:55 WBC 7.3 (4.0-11.0) 10^3/uL Hgb 8.5 L (14.0-18.0) g/dL Hct 26.1 L (42.0-54.0) % Plt Count 228 (150-450) 10^3/uL BMP 04/02/24 02:55 Sodium 140 Potassium 3.4 L Chloride 102 Carbon Dioxide 31.4 BUN 45.0 H Creatinine 1.15 Glucose 115 H Calcium 8.8 Liver Function 04/02/24 Range/Units 02:55 Total Bilirubin 0.8 (0.2-1.0) mg/dL Direct Bilirubin 0.2 (0.0-0.2) mg/dL AST 18 (15-37) U/L ALT 42 (16-63) U/L Alkaline Phosphatase 70 (46-116) U/L Albumin 2.4 L (3.4-5.0) g/dL Urine 04/02/24 Range/Units 05:39 Urine Color Lt. yellow (YELLOW) Urine Clarity Clear (CLEAR) Urine pH 6.5 (5.0-9.0) Ur Specific [place] 1.010 (1.005-1.025) Urine Protein Negative (NEG/TRACE) mg/dL Urine Glucose (UA) 100 A (NEGATIVE) mg/dL ABG ABG results: 04/02/24 03:17 ABG pH 7.526 H* ABG pCO2 31.8 L ABG pO2 62.3 L ABG HCO3 26.3 H ABG O2 Saturation 93.4 ABG Base Excess 3.5 H Attestation: I have reviewed the pertinent ABG results. Pulse Oximetry Attestation: I have reviewed the pertinent pulse oximetry results. Assessment and Plan Assessment and Plan (1) Metabolic encephalopathy: Assessment and Plan: CTH - No acute pathology. Patient confused, lethargic with fluctuating mental status. Multifactorial and likely due to hypoxia/adverse effects of chemo This could also be due to metastatic brain disease. MRI with contrast will be needed for that but holding off as family may opt for hospice and not pursue further treatment. (2) Acute infective exacerbation of chronic obstructive airway disease: Assessment and Plan: Diminished air movement/increased work of breathing likely due to COPD exacerbation and worsening involvement/progression of lung cancer. C/w systemic steroids, duonesb. (3) Acute and chronic respiratory failure with hypoxia: Assessment and Plan: Previously discharged on 2 L , now requiring venti mask, 12 L O2. Switch to High flow as its better tolerated. Treat underlying COPD exacerbation. His hypoxia/respi status might not improve as it seems partly due to his lung cancer Prior PE - stable. No evidence of PNA. (4) Metastatic non-small cell lung cancer: Assessment and Plan: Worsening, poor prognosis. Family leaning towards hospice. Have a family meeting this afternoon (5) Pulmonary emboli: Assessment and Plan: On Eliquis, c/w same. recent diagnosis and has not finished 7 days of 10 mg eliquis. Qualifiers: Pulmonary embolism type: multiple subsegmental (without acute cor pulmonale) Qualified Code(s): I26.94 - Multiple subsegmental pulmonary emboli without acute cor pulmonale (6) HLD (hyperlipidemia): Assessment and Plan: C/w statin Qualifiers: Hyperlipidemia type: unspecified Qualified Code(s): E78.5 - Hyperlipidemia, unspecified (7) CAD (coronary artery disease): Assessment and Plan: No evidence of active cardiac ischemia. C/w same. Qualifiers: Coronary Disease-Associated Artery/Lesion type: [place] artery [place] vs. transplanted heart: [place] heart Associated angina: without angina Qualified Code(s): I25.10 - Atherosclerotic heart disease of [place] coronary artery without angina pectoris (8) Severe protein-calorie malnutrition: Assessment and Plan: Severe PCM, loss of 8 kg within 1-2 weeks, poor PO intake, BMI of only 17. Has chronic disease burden with active ongoing illness contributing to weight loss, muscle wasting, cachexia, catabolic state and failure to thrive. Nutritional consult placed. (9) Failure to thrive: Assessment and Plan: Due to chronic disease burden, active and current illness. Patient has poor PO intake, active/progressive weight loss. Qualifiers: Failure to thrive age range: in adult Qualified Code(s): R62.7 - Adult failure to thrive
--- NOTE | 2024-04-02 11:35 | SWNOTE1 ---
Doctor attempting to call pt's son, no answer. SW attempted once and then tried other son Ki once, no answer. SW called again and son Ki answered. Doctor was able to speak with son and they are going to discuss plans and come to hospital. Possibly will be referring to hospice, waiting to see what family decides.
[2024-04-02] MEDS: GABAPENTIN 100 MG CAPSULE PO ×2 (13:44→21:33)
[2024-04-02] MEDS: 0.9 % SODIUM CHLORIDE 1,000 ML 125 ML IV (13:44)
[2024-04-02] MEDS: METHYLPREDNISOLONE SOD SUCC PF 40 MG/ML VIAL IVP (13:44)
--- NOTE | 2024-04-02 13:59 | CM.NOTE ---
Spoke with Rashaad and Ki on the telephone regarding decline in their father. Both son's had been spoken with earlier and were planning on coming in to speak with Dr. Causey regarding plan of care and pt's wishes. Rashaad said he was here earlier but they are not ready to make a decision or change pt's code status until more family members arrive tomorrow. Rashaad did not reach out to speak with Dr. Causey when he came to see his father. Support provided and questions answered. Spoke with Dr. Causey for update on pt's children wanting to wait to meet until tomorrow regarding pt's prognosis and decision making.
--- NOTE | 2024-04-02 14:44 | PM.CSD1 ---
Advance Care Planning Advance Care Planning Discussion Advance care planning discussion summary: 69 y o male with hx of metastatic lung cancer, chronic resp failure with hypoxia, Severe COPD presented to us with metabolic encephalopathy, acute on chronic resp failure with hypoxia. Patient is delirious, confused and fluctuating sensorium with periods of lethargy/drowsiness alternating with periods of hyperactivity/anxiety. Patient is unable to have meaningful conversation regarding goals of care due to his mental status. I called and spoke to three of his sons over the phone - Rashaad, Pedro Sheldon and Ki. They all understand that this is likely their father's terminal illness and in agreement that we should avoid aggressive/invasive intervention/treatments. They are all leaning towards hospice care but waiting for other family members to arrive so that they can reach the final decision. I was able to review patient's living will that explicitly said that if it was determined that patient's illness was terminal, he would not want aggressive/invasive treatment including artificial nutrition/ventilator to artificially prolong or sustain his life. I discussed his living will with his son Rashaad again who is also in agreement and understands that these were his fathers wishes and his decision. Over 20 minutes spent on advance care planning to co ordinate and communicate with the patient's family. This is separate from the time spent on his clinical care. Advance care planning: Living Will, Comfort One and Medical Orders for Scope of Treatment Does patient have a terminal or chronic,progressive disease such that prognosis is less than 6 months: Yes Advance care planning discussion participants: patient surrogate decision maker and other family member
--- NOTE | 2024-04-02 14:55 | CM.NOTE ---
Pt's friend brought in Living Will that was obtained from [employer]. Discussed with Dr. Causey pt's wishes and gave him the paper from [employer]. Dr. Causey reached out to the pt's son and he was in agreement with changing code status to DNRCCA. Dr. Causey also updated pt's son on his condition.
--- NOTE | 2024-04-02 15:06 | SWNOTE1 ---
See case management note.
[2024-04-02] MEDS: IPRATROPIUM/ALBUTEROL SULFATE 3 ML AMPUL.NEB IH ×3 (15:50→23:13)
[2024-04-02] MEDS: OLANZapine 5 MG TABLET 10 MG PO (21:33)
[2024-04-02] MEDS: LORAZEPAM 1 MG TABLET PO (21:48)
[2024-04-03] VITALS (8 sets, daily range): BP systolic 128–161; BP diastolic 74–87; PULSE 94–125; TEMP 36.4–36.7; O2SAT 94–99
[2024-04-03] MEDS: ALPRAZOLAM 0.5 MG TABLET PO ×2 (00:59→14:08)
[2024-04-03] MEDS: IPRATROPIUM/ALBUTEROL SULFATE 3 ML AMPUL.NEB IH ×5 (03:50→19:38)
[2024-04-03] MEDS: GABAPENTIN 100 MG CAPSULE PO ×2 (05:36→14:08)
[2024-04-03] MEDS: METOPROLOL TARTRATE 25 MG TABLET 50 MG PO (08:12)
[2024-04-03] MEDS: CLOPIDOGREL BISULFATE 75 MG TABLET PO (08:12)
[2024-04-03] MEDS: LEVOFLOXACIN 750 MG TABLET PO (08:12)
[2024-04-03] MEDS: APIXABAN 5 MG TABLET 10 MG PO (08:12)
[2024-04-03] MEDS: ATORVASTATIN CALCIUM 40 MG TABLET PO (08:12)
--- NOTE | 2024-04-03 08:12 | PM.DS1 ---
DS: Providers Provider Date of admission: 04/02/24 11:23 Primary care physician: ENRIQUE ESPOSITO Admitting clinician: Shaikh Marium Consults: 04/02/24 09:11 Occupational Therapy Eval and Treat Routine Reason for consultation: Ambulatory dysfunction/weakness Physical Therapy Eval and Treat Routine Reason for consultation: Ambulatory dysfunction/weakness 04/02/24 17:36 Consult to Hospice Routine Reason for consultation: End of Life Care Discharging clinician: Raine Topete DS: Diagnosis Discharge Diagnosis (1) Metabolic encephalopathy: (2) Acute infective exacerbation of chronic obstructive airway disease: (3) Acute and chronic respiratory failure with hypoxia: (4) Metastatic non-small cell lung cancer: (5) Pulmonary emboli: Qualifiers: Pulmonary embolism type: multiple subsegmental (without acute cor pulmonale) Qualified Code(s): I26.94 - Multiple subsegmental pulmonary emboli without acute cor pulmonale (6) HLD (hyperlipidemia): Qualifiers: Hyperlipidemia type: unspecified Qualified Code(s): E78.5 - Hyperlipidemia, unspecified (7) CAD (coronary artery disease): Qualifiers: Associated angina: without angina Coronary Disease-Associated Artery/Lesion type: [place] artery [place] vs. transplanted heart: [place] heart Qualified Code(s): I25.10 - Atherosclerotic heart disease of [place] coronary artery without angina pectoris (8) Severe protein-calorie malnutrition: (9) Failure to thrive: Qualifiers: Failure to thrive age range: in adult Qualified Code(s): R62.7 - Adult failure to thrive DS: Summary Hospital Course Hospital Course: Per Dr. Causey's note: 69 y o male with metastatic lung cancer, recently discharged from the hospital for PE/COPD exacerbation and Pneumonia brought in by his family for change in mental status. At baseline, patient is alert and oriented. According to family, patient is increasingly confused, agitated, and would take off his O2 repeatedly. He is also experiencing intermittent hallucinations. Patient was also noted to have increased work of breathing with RR in high 20s, worsening hypoxia with pulse Ox as low as 86% on home O2. As he arrived on floor, he was diaphoretic, with HR as high as 150, poorly controlled BP and was having a difficult time breathing. He received IV hydralazine and lopressor and was switched to venti mask and is currently on 12 L O2 with pulse Ox running around 90-92%. Patient's mental status fluctuates but he never returns to his baseline. He is confused, his speech is slurred/incomprehensible and periodically he becomes too drowsy and lethargic to wake up to painful stimulus. Work up in ED did not reveal any acute finding with no sig changes on CTA chest/CTH and no sig abnormality noted on CBC/CMP. His ammonia is normal and he is not hypercapnic. I had a detailed discussed with patient's family - his two sons - Rashaad and Pedro Sheldon who are leaning towards CC measures and hospice consultation given his metastatic lung cancer, physical decline and failure to thrive. Over yesterday patient oxygen requirement became less and this morning he is also more alert and oriented. He is still amendable to Hospice Consult. He is complaining of some back pain. He notes some left arm swelling has been present for several weeks. He is now down to 5L nasal cannula oxygen. BP Has been 160's/80's. patient was made a DNRCCA by family and morning labs were stopped. Plan for discharge home with hospice today. He is to continue home medications. [email or web address]osp[facility] to take over care. Patient discharged home. Status at Discharge Functional status at discharge: independent ambulation Overall status at discharge: patient is not back to baseline Time Spent with Patient Time attestation: Total time spent providing and/or coordinating discharge services: Time spent: greater than 30 minutes Exam Narrative Exam Narrative: General: Patient is alert, and oriented to person, place and time with normal affect, Cachexia Skin: no visible rashes, or ulcers Head: atraumatic, acephalic Heart: Normal rate and rhythm, no murmurs/rubs/gallops Lungs: audible wheezes, and crackles and diminished breath sounds all lung wells Abdomen: Normal audible bowel sounds, no distension, No palpable masses, no organomegaly, no rebound/guarding/ or rigidity Musculoskeletal: no swelling bilateral lower extremities but left upper ext with 1+ edema Neuro: CN II-X grossly intact Constitutional Vital Signs, click to edit/add: Last Vital Signs Temp 97.6 F 04/03/24 05:18 Pulse 115 H 04/03/24 07:43 Resp 18 04/03/24 05:18 BP 146/78 H 04/03/24 05:18 Pulse Ox 97 04/03/24 07:43 O2 Del Method Nasal Cannula 04/03/24 07:43 O2 Flow Rate 6 04/03/24 07:43 FiO2 45 04/02/24 15:51 DS: Data Data Completed and Pending Labs on day of discharge: Labs from last 24 hours 04/02/24 09:33 Ammonia <10 L Discharge Plan Discharge Disposition: Hospice - Home Condition: Fair Discharge Medications: Continued atorvastatin 40 mg tablet 40 mg PO DAILY cilostazol 100 mg tablet 100 mg PO BID clopidogrel 75 mg tablet 75 mg PO DAILY isosorbide mononitrate 30 mg tablet extended release 24 hr 30 mg PO DAILY metoprolol tartrate 25 mg tablet 50 mg PO Q12H Lumak[place] 320 mg tablet 960 mg PO Q24H fentanyl 100 mcg/hr patch 72 hour 1 patch topical Q72H olanzapine 10 mg tablet 10 mg PO .QHS venlafaxine 37.5 mg capsule,extended release 24hr 37.5 mg PO .QD albuterol sulfate 90 mcg/actuation HFA aerosol inhaler 2 puff INHALATION Q4H PRN (Reason: shortness of breath or wheezing) levofloxacin 750 mg tablet 750 mg PO DAILY 5 Days Qty: 5 0RF prednisone 20 mg tablet 20 mg PO BID 5 Days Qty: 10 0RF Eliquis 5 mg tablet 5 mg PO BID Qty: 60 0RF No Action trazodone 50 mg tablet 50 mg PO BEDTIME dexamethasone 4 mg tablet 4 mg PO BID pregabalin 100 mg capsule 100 mg PO TID Activity: increase activity as tolerated and wear oxygen at all times Diet: advance to your usual diet Print Language: [place] Forms: Portal Instructions Discharge Date/Time: 04/03/24 20:00 Discharge location: Home with [facility]
[2024-04-03] MEDS: CILOSTAZOL 100 MG TABLET PO (08:13)
[2024-04-03] MEDS: VENLAFAXINE HCL ER 37.5 MG CAPSULE PO (08:13)
[2024-04-03] MEDS: ISOSORBIDE MONONITRATE 30 MG TAB.ER.24H PO (08:13)
--- NOTE | 2024-04-03 10:11 | REH.PTDLY ---
Physical Therapy Daily Note PT Daily Note/Assess Start: 04/02/24 09:27 Freq: Status: Active Protocol: Document 04/03/24 09:40 BA (Rec: 04/03/24 10:11 BA [id number]) Physical Therapy Daily Note/Assessment Time In 09:32 Time Out 09:41 Subjective Bed alarm going off upon arrival, nursing in room with pt getting ready to ambulate as pt is tired of sitting still. Took over care at this time for pt to perform PT. Nursing states pt is better today and not confused like he was previous day. Pt is having hospice consult later today. Therapeutic Exercise Minutes (minutes) 3 Therapeutic Exercise Units 0 Therapeutic Exercise Treatment Instructed in B LE seated LAQ, HR, marching, and hip abd 8- 10x ea for strength. Therapeutic Activity Minutes (minutes) 6 Therapeutic Activity Units 1 Therapeutic Activity Comments Gait with no AD 30 feet in room, CGA with pt on O2. Pt sits bedside and complains of L shoulder pain, notable swelling in L arm compared to R, pt states he feels as though swelling is better than what it was a few days ago. Pt ambulated another 15 feet in room to chair CGA with CGA when sitting down in recliner, chair alarm is on for safety. Total Therapy Minutes 9 Total Physical Therapy Units 1 Daily Note Summary Pt is improved cognitively today compared to eval. Fatigues easily with exs and gait. Only complaint this morning is L shoulder pain. Pt sits up in recliner post rx with call light at hand and chair alarm on for safety. Meeting with hospice is planned for today.
[2024-04-03] MEDS: OXYCODONE HCL 5 MG TABLET 10 MG PO ×2 (10:37→14:08)
[2024-04-03] MEDS: ONDANSETRON 4 MG RAPDIS TABLET 8 MG SL (13:44)
[2024-04-03] MEDS: ACETAMINOPHEN 325 MG TABLET 650 MG PO (14:08)
== END 2024-04-03 20:00 | disposition hospice, home (50) | DRG 189 ==
LOC: ER 08:16 → MS 08:23
PROVIDERS: Admitting Provider Internal Medicine; Emergency Provider Internal Medicine; PCP Nurse Practitioner; Visit Provider Family Medicine
DX: J96.21 Acute and chronic respiratory failure with hypoxia (principal); G93.41 Metabolic encephalopathy; E43 Unspecified severe protein-calorie malnutrition; I26.94 Multiple subsegmental thrombotic pulmonary emboli without acute cor pulmonale; J44.1 Chronic obstructive pulmonary disease with (acute) exacerbation; I16.1 Hypertensive emergency; C34.90 Malignant neoplasm of unspecified part of unspecified bronchus or lung; Z68.1 Body mass index [BMI] 19.9 or less, adult; C79.9 Secondary malignant neoplasm of unspecified site; R64 Cachexia; R60.0 Localized edema; E78.5 Hyperlipidemia, unspecified; I25.10 Atherosclerotic heart disease of native coronary artery without angina pectoris; R62.7 Adult failure to thrive; I73.9 Peripheral vascular disease, unspecified; Z79.01 Long term (current) use of anticoagulants; Z79.899 Other long term (current) drug therapy; Z87.01 Personal history of pneumonia (recurrent); Z99.81 Dependence on supplemental oxygen; Z87.891 Personal history of nicotine dependence; Z66 Do not resuscitate; Z95.1 Presence of aortocoronary bypass graft; Z90.2 Acquired absence of lung [part of]
CPT/HCPCS: 36415; 36600; 70450; 71045; 71275; 80048; 80076; 80320; 81003; 82140; 82800; 82805; 84484; 85007; 85025; 85027; 93005; 93971; 94640; 94761; 96374; 96375; 96376; 97161; 97165; 97530; 99284; 99285; J0360; J1630; J2060; J2919; Q0162; Q9967

== ENCOUNTER 2024-04-22 23:01 | Inpatient (IN) | payer MEDICARE, MEDICAID, SELFPAY ==
[2024-04-22 23:08] VITALS: BP 235/158; PULSE 107; O2SAT 89
--- NOTE | 2024-04-22 23:25 | PC.NURSE ---
[facility] nurse called to give report. 0815 unwitnessed fall, called for lit assist. Fell down 2 cement stairs right side, unable to breath. Patient want wearing oxygen and had confusion.At 935pm 10mg oxy and 0.5mg zanax given.
--- OUTSIDE RECORDS SUMMARY | 2024-04-22 23:26 | XMS_ITS | CCD ---
Author Organization [facility] Care Team Providers Care Tree Care Foreman Name Role Phone UNKNOWN, PROVIDER Admitting Unavailable UNKNOWN, PROVIDER Attending Unavailable CHRISTINA AZUL Referring Unavailable CHRISTINA AZUL Primary Care Unavailable Adalgisa KHOURY, Heba Unavailable Christina Azul MD Primary Care Provider Verito Whelan MD Unavailable [phone] Nina Grigsby MD R Unavailable Paul CONCERT MANAGER.Sher VILLEDAy Unavailable [phone] Fredi PAYNE, Denita Unavailable Adalgisa KHOURY, Heba Unavailable Christina Azul MD Primary Care Provider [phone] Tip KHOURY, Verito Unavailable [phone] Seb KHOURY, Nina R Unavailable Paul CONCERT MANAGER.Sher VILLEDAy Unavailable Fredi PAYNE, Denita Unavailable AMRITA Swann Attending Provider NO FAMILY, PHYSICIAN Primary Care Provider Unava ilable Adalgisa KHOURY, Heba Unavailable Christina Azul MD Primary Care Provider Fredi PAYNE, Denita Unavailable Christina Azul MD Primary Care Provider Adalgisa KHOURY, Heba Unavailable Christina Azul MD Primary Care Provider Verito Whelan MD Unavailable Seb KHOURY, Nina Naranjo Unavailable Paul CONCERT MANAGERPatricia FOSTER Unavailable Fredi PAYNE, Denita Unavailable LOVE ALBERTS [...] Ramires Admitting Unavailable MOUKAROSANNE, JONATHAN Referring Unavailable MOUKARBMYKE, JONATHAN Referring Unavailable MOUKARBEL, JONATHAN Referring Unavailable MOUKARBEL, JONATHAN Attending Unavailable MOUKARBEL, JONATHAN Referring Unavailable MD Christina Azul Primary Care Provider [phone] Saffle, CONCERT MANAGER Sapna Guzmán Emergency Provider Rohan ROBLES, Minna Unavailable Unavailable Karla, Dr. Perry Attending Unavailable Unavailable Primary Care Provider Unavailrome Diana MD, Heba Unavailable Fredi RN, Denita Unavailable Melaniriddewey CONCERT MANAGER.TYPEWRITER TESTER, Estella Kinsey Unavailable Willie PAYNE, Julieth Beatty Unavailable Unavail able Cate CONCERT MANAGER.TYPEWRITER TESTER, Enrique Beatty Primary Care Provider Cate CONCERT MANAGER.TYPEWRITER TESTER, Enrique Beatty Primary Care Provider NON STAFF Primary Care Provider UnavailMD John Oliveira Emergency Provider Cate CONCERT MANAGER.TYPEWRITER TESTEREnrique Primary Care Provider DO Abel De La Cruz Emergency Provider [phone] DO Shahbaz Lehman Emergency Provider MD Deborah Lamar Emergency Provider MD Jair Nichols Admit Provider MD Jair Nichols Attending Provider DO Davion Allen Other Provider Jorge Alberto KHOURY, Christina Corbett Primary Care Provider Cate, ASH COLLECTOR Enrique L Attending Unavailable Cate, ASH COLLECTOR Enrique L Attending Unavailable Cate, ASH COLLECTOR Enrique L Admitting Unavailable Cate, ASH COLLECTOR Enrique L Attending Unavailable Cate, ASH COLLECTOR Enrique L Attending Unavailable Cate, ASH COLLECTOR Enrique L Attending Unavailable Cate, ASH COLLECTOR Enrique L Attending Unavailable Cate, ASH COLLECTOR Enrique L Attending Unavailable Cate, ASH COLLECTOR Enrique L Attending Unavailable Cate, ASH COLLECTOR Enrique L Attending Unavailable Cate, ASH COLLECTOR Enrique L Attending Unavailable Cate, ASH COLLECTOR Enrique L Attending Unavailable Cate, ASH COLLECTOR Enrique L Attending Unavailable Cate, ASH COLLECTOR Enrique L Attending Unavailable Cate, ASH COLLECTOR Enrique L Attending Unavailable Cate, ASH COLLECTOR Enrique L Attending Unavailable Cate, ASH COLLECTOR Enrique L Attending Unavailable Cate, ASH COLLECTOR Enrique L Attending Unavailable NON STAFF Primary Care Unavailable Shahbaz Lehman Admitting Unavailable KeisterShahbaz Attending Unavailable NON STAFF Primary Care Unavailable TupaAbel Admitting Unavailable TupaAbel Attending Unavailable Magdalena, Jair Attending Unavailable Davion Allen Consulting Unavailable NON STAFF Primary Care Unavailable Magdalena, Jair Admitting Unavailable NON STAFF Primary Care Unavailable John Dominguez Admitting Unavailable John Dominguez Attending Unavailable CATE, ENRIQUE RAMOS Primary Care Unavailable NINA GRIGSBY Attending Unavailable CATE, ENRIQUE RAMOS Referring Unavailable CATE, ENRIQUE RAMOS Primary Care Unavailable ESTELLA FISH Referring Unavailabl e ESTELLA FISH Attending Unavailabl CHRISTINA Mehta Primary Care Unavailable NINA GRIGSBY Referring Unavailable CATE, ENRIQUE RAMOS Primary Care Unavailable Hector LIMON Referring Unavailable CATE, ENRIQUEKENDRA RAMOS Primary Care Unavailable NINA GRIGSBY Attending Unavailable CATE, ENRIQUE RAMOS Referring Unavailable CATE, ENRIQUE RAMOS Primary Care Unavailable ENGELEHector Naranjo Referring Unavailable CATE, ENRIQUEKENDRA RAMOS Primary Care Unavailable CATE, ENRIQUE RITA Primary Care Unavailable YUSEF PANDYA Attending Unavailable CATE, ENRIQUE RAMOS Referring Unavailable CATE, ENRIQUE RAMOS Primary Care Unavailable ENGELER, G ERASTO Referring Unavailable CATE, ENRIQUE RITA Primary Care Unavailable CATE, ENRIQUE RITA Primary Care Unavailable ENGELER, Hector MAURER Referring Unavailable CATE, ENRIQUE RAMOS Primary Care Unavailable ENGELER, G ERSATO Attending Unavailable CATE, ENRIQUE RAMOS Referring Unavailable CATE, ENRIQUE RAMOS Primary Care Unavailable CATE, ENRIQUE RAMOS Primary Care Unavailable CHRISTINA AZUL Primary Care Unavailable NINA GRIGSBY Attending Unavailable CHRISTINA AZUL Primary Care Unavailable NINA GRIGSBY Referring Unavailable ESTELLA FISH Attending Unavailabl e CHRISTINA AZUL Primary Care Unavailable NINA GRIGSBY Attending Unavailable AZUL, [facility] Primary Care Unavailable NINA GRIGSBY Referring Unavailable AZUL, [facility] Primary Care Unavailable NINA GRIGSBY Referring Unavailable AZUL, [facility] Primary Care Unavailable NINA GRIGSBY Referring Unavailable Hector LIMON Referring Unavailable CATE, ENRIQUE RITA Primary Care Unavailable Hector LIMON Referring Unavailable CATE, ENRIQUE RITA Primary Care Unavailable CATE, ENRIQUE RITA Primary Care Unavailable NINA GRIGSBY Attending Unavailable CATE, ENRIQUE RAMOS Referring Unavailable CATE, ENRIQUE RITA Primary Care Unavailable [facility], [facility] Primary Care Unavailable [facility], PANNA MARIA EDWELLING Primary Care Unavailable Hector LIMON Attending Unavailable [facility], [facility] Primary Care Unavailable [facility], [facility] Primary Care Unavailable [facility], [facility] Primary Care Unavailable NINA GRIGSBY Attending Unavailable [facility], [facility] Primary Care Unavailable [facility], [facility] Primary Care Unavailable Hector LIMON Attending Unavailable [facility], [facility] Primary Care Unavailable PATRICIA MILLER Attending Unavailable AZUL, [facility] Primary Care Unavailable NINA GRIGSBY Referring Unavailable CATE, ENRIQUE RITA Primary Care Unavailable CATE, ENRIQUE RITA Primary Care Unavailable DOMINIQUE MURPHY Attending Unavailabl e CATE, ENRIQUE RITA Primary Care Unavailable NINA [...] Primary Care Unavailable Hector LIMON Attending Unavailable NINA GRIGSBY Attending Unavailable CATE, ENRIQUE RAMOS Primary Care Unavailable NINA GRIGSBY Attending Unavailable CATE, ENRIQUE RAMOS Referring Unavailable CATE, ENRIQUE RITA Primary Care Unavailable CATE, ENRIQUE RITA Primary Care Unavailable KATHERINE, DOMINIQUE Attending Unavailabl e ESTELLA FISH Attending Unavailabl e ESTELLA FISH Referring Unavailabl e CATE, ENRIQUE RITA Primary Care Unavailable CATE, ENRIQUE RITA Primary Care Unavailable Hector LIMON Attending Unavailable CATE, ENRIQUE RITA Primary Care Unavailable NINA GRIGSBY [facility] Care Unavailable APTRICIA MILLER Attending Unavailable AZUL, [facility] Primary Care Unavailable Hector LIMON Attending Unavailable JORGE ALBERTO, [facility] Primary Care Unavailable NINA GRIGSBY Referring Unavailable CATE, ENRIQUE RITA Primary Care Unavailable NYDIA PARKS Attending Unavailable JORGE ALBERTO, [facility] Primary Care Unavailable CATE, ENRIQUE RITA Primary Care Unavailable Hector LIMON Referring Unavailable CATE, ENRIQUE RITA Primary Care Unavailable Hector LIMON Attending Unavailable CATE, ENRIQUE RITA Primary Care Unavailable Hector LIMON Attending Unavailable ESTELLA FISH Attending Unavailabl e ESTELLA FISH Referring Unavailabl e CATE, ENRIQUE RITA Primary Care Unavailable NYDIA PARKS Attending Unavailable JORGE ALBERTO [facility] Primary Care Unavailable JORGE ALBERTO, [facility] Primary Care Unavailable CATE, ENRIQUE RITA Primary Care Unavailable Hector LIMON Attending Unavailable CATE, ENRIQUE RITA Primary Care Unavailable Hector LIMON Attending Unavailable YUSEF PANDYA Referring Unavailable CATE, ENRIQUE RITA Primary Care Unavailable NINA GRIGSBY Referring Unavailable MERARY LUCAS Attending Unavailable CATE, ENRIQUE RITA Primary Care Unavailable ESTELLA FISH Attending Unavailabl e ESTELLA FISH Referring Unavailabl e CATE, ENRIQUE RITA Primary Care Unavailable AZUL [facility] Primary Care Unavailable NINA GRIGSBY Referring Unavailable DAMON TSE Attending Un[facility] [place] [facility] [place] Primary Care Unavailable Hector LIMON Attending [facility] [place] Primary Care Unavailable YUSEF PANDYA Referring Unavailable CATE, ENRIQUE RITA Primary Care Unavailable Hector LIMON Attending [facility] [place] [facility] [place] Primary Care Unavailable Medications Current Medications Medication Drug Class(es) Dates Sig (Normalized) Sig (Original) [id number] 200 actuat albuterol 0.09 mg/actuat metered dose [...] 4 HOURS NEEDED for SHORTNESS OF BREATH 10/21/2022 Discontinued End: 10-21-2022 albuterol (PROVENTIL) 2.5 mg /3 mL (0.083 %) nebulizer solution Use 2.5 mg via nebulizer. 10/21/2022 Discontinued Comment on above: albuterol sulfate [...] twice daily for 7 days. 15 tablet 01/13/2023 01/17/2023 Discontinued Start: 11-18-2021 End: 11-30-2021 take 1 tablet [...] Take 40 mg by mouth once daily. cilostazol 100 mg oral tablet (20 [...] Do not cut patch. 10 Patch 03/17/2024 Active Start: 02-07-2024 Fentanyl Activ e 1 PATCH TOPICAL Every 72 hours February 07, 2024 12:00am Start: 01-09-2024 End: 04-08-2024 fentaNYL (DURAGESIC) 50 mcg/ hr Indications: Neoplasm related pain Apply 1 Patch as directed every 72 hours for 30 days. Do not cut patch. 10 Patch 02/20/2024 03/09/2024 Discontinued (Adjust Sig - Block E-Cancel) 24 hr isosorbide mononitrate 30 mg extended [...] gabe th once daily for 10 days. levothyroxine sodium 0.075 mg oral tablet (20 sources) l-Thyroxine Start: 3 End: 4 take 1 tablet [...] 1 tablet by gabe th once daily. minocycline 50 mg oral tablet [...] oral tablet (20 sources) Atypical Antipsychotic Start: End: take 1 tablet by mouth once daily at bedtime OLANZapine (ZYPREXA) 10 mg tablet Take 1 tablet by mouth daily at bedtime. 30 tablet 03/17/2024 Active Start: 10-20-2023 End: 02-17-2024 take 1 [...] by mouth daily at bedtime. 30 tablet 01/17/2023 05/16/2023 Discontinued Comment on above: Take [...] every 8 hours as needed for nausea/vomiting. pregabalin 100 mg oral capsule (20 sources) Start: End: take 1 capsule by mouth three times daily pregabalin (LYRICA) 100 mg capsule Indications: Neuropathy due to chemotherapeutic drug (HCC) Take 1 capsule by mouth three times a day for 30 days. 90 capsule 03/17/2024 Active Start: 12-26-2023 End: 03-21-2024 take 1 [...] 3 tablets by mo uth once daily. traZODone hydrochloride 50 mg oral tablet [...] venlafaxine 37.5 mg extended release oral capsule (11 sources) Serotonin and Norepinephrine Reuptake Inhibitor Start: 03-17-2024 End: 04-16-2024 take 1 capsule by mouth once daily venlafaxine ER (EFFEXOR XR) 37.5 mg 24 hr capsule Take 1 capsule by mouth once daily. 30 capsule 2 03/17/2024 Active Completed/Discontinued Medications Medication Drug Class(es) Dates Sig (Normalized) Sig (Original) acetaminophen 500 mg oral tablet (4 sources) Start: 10-02-2021 End: 10-22-2021 take 2 tablets by mouth every six hours acetaminophen (TYLENOL) 500 mg tablet Take 2 tablets by mouth every 6 hours. 0 10/02/2021 10/22/2021 Discontinued Comment on above: Take 2 tablets by mo [facility] every 6 hours. acetaminophen 325 mg / oxyCODONE hydrochloride 5 mg oral tablet (20 sources) Opioid Agonist Start: 10-17-2022 End: 06-13-2023 take 1-2 tablets by mouth every four hours as needed for pain oxyCODONE-acetamino phen (PERCOCET) 5-325 mg tablet Indications: Cancer associated pain Take 1-2 tablets by mouth every 4 hours as needed for pain. 50 tablet 11/11/2022 05/13/2023 Discontinued Start: 06-07-2020 End: 06-12-2020 take 1 tablet [...] for wheezing/shortness of breath. 120 Vial 3 01/29/2022 04/29/2022 Discontinued Comment on above: Inhale 3 mL [...] Amoxicillin Discontinued 500 MG PO Twice daily 09 05February 04, 2023 12:00am March 19, 2024 7:24pm [...] above: Take 1 tablet by gabe th two times a day for 7 days. [...] tablet daily for 4 days. 6 tablet 03/11/2023 05/08/2023 Discontinued Start: 12-24-2022 End: 01-28-2023 take 2 tablets by mouth once daily, then take 1 tablet by mouth once daily azithromycin (ZITHROMAX Z-DAVID) 250 mg tablet Take two (2) tablets by mouth the first day and then one (1) tablet daily for 4 days. 6 tablet 12/24/2022 01/28/2023 Discontinued Comment on above: Take two (2) tablets by mouth the first day and then one (1) tablet daily for 4 days. TAKE 2 TABLETS by mo [facility] today, THEN take 1 TABLET once a day FOR the next 4 DAYS. cephalexin 500 mg oral tablet (20 sources) Cephalosporin Antibacterial Start: 2 End: 2 take 1 tablet by mouth three times daily Cephalexin 500 mg tab Take 1 tablet by mouth three times daily. 12/21/2021 03/26/2022 Discontinued (Course of therapy completed) Start: 06-12-2020 End: 03-28-2021 take 1 capsule by mouth every eight hours Cephalexin (Keflex) 500 mg capsule Discontinued 500 MG PO Q8H June 12, 2020 1:00am March 28, 2021 9:13am Comment on above: [facility] Ciprofloxacin-Dexametha sone (Ciprodex) 0.3-0.1 % drops,suspension (4 sources) Start: 02-05-20 End: 02-07-20 Ciprofloxacin-Dexameth asone (Ciprodex) 0.3-0.1 % drops,suspension Discontinued [...] sources) Muscle Relaxant Start: 06-12-20 End: 03-28-20 take 10 mg by mouth three times daily Cyclobenzaprine Discontinued 10 MG PO Three times daily 50 June 12, 2020 1:00am March 28, 2021 [...] 300 mL 1 05/08/2023 Active Start: 12-24-2022 End: 01-28-2023 take 5 mL by mouth every six hours as needed diphenhydrAMINE 12.5 mg/5 mL lidocaine visc 2% MAALOX 200-200-20 mg/5 mL nystatin prednisoLONE 15 mg/5 mL oral liquid 1:1:1:1:1 (CPD) Take 5 mL by mouth every 6 hours as needed. Swish and Swallow 250 mL 1 12/24/2022 01/28/2023 Discontinued Start: 12-24-2022 End: 01-28-2023 take 5 mL by mouth every six hours as needed diphenhydrAMINE 12.5 mg/5 mL lidocaine visc 2% MAALOX 200-200-20 mg/5 mL nystatin prednisoLONE 15 mg/5 mL oral liquid 1:1:1:1:1 (CPD) Take 5 mL by mouth every 6 hours as needed. 300 mL 1 12/24/2022 01/28/2023 Discontinued Start: 12-24-2022 take 5 mL by mouth [...] once daily. 90 capsule 12/26/2023 03/17/2024 Discontinued ferrous sulfate 325 mg oral tablet (20 sources) Start: End: FEROSUL 325 mg (65 mg iron) tablet 12/10/2021 03/26/2022 Discontinued (Discontinued by Patient) fluticasone propionate 0.05 mg/actuat metered dose nasal spray (17 sources) Corticosteroid Start: End: take 2 spray(s) nasal route once daily fluticasone (FLONASE) 50 mcg/actuation nasal spray instill 2 (TWO) sprays IN EACH NOSTRIL DAILY 03/17/2023 05/20/2023 Discontinued Comment on above: instill [...] 0 05/16/2023 06/13/2023 Discontinued Start: 11-04-2022 End: 01-28-2023 take 1 capsule by mouth twice daily gabapentin (NEURONTIN) 300 mg capsule Take 1 capsule by mouth twice daily for 30 days. 60 capsule 2 11/04/2022 01/28/2023 Discontinued Comment on above: Take 1 capsule by [facility] twice daily for 30 days. Take 1 capsule by [facility] three times a day for 3 days, THEN 2 capsules three times a day for 3 days, THEN 3 capsules three times a day for 24 days. Take 1 capsule by [facility] three times a day for 120 days. Take 1 capsule by [facility] three times a day isosorbide dinitrate 10 [...] Comment on above: TAKE 1 TABLET BY [facility] EVERY MORNING and TAKE 1 TABLET BY MOUTH EVERY afternoon Take 30 mg by mouth twice daily. 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 1 Each 06/11/2022 06/12/2022 Start: 06-11-2022 End: 06-12-2022 iv contrast (will [...] Azole Antifungal Star t: 10-0 04-09 End: 02-0 12-07 24 ketoconazole (NIZORAL) 2 % cream mix with mometasone and APPLY TO THE AFFECTED AREA(S) TWICE DAILY for 30 days 0 04/28/2023 08/25/2023 Discontinued Comment on above: mix with mometasone and APPLY TO THE AFFECTED AREA(S) TWICE DAILY for 30 days lidocaine 0.04 mg/mg medicated patch (4 sources) Antiarrhythmic, Amide Local Anesthetic Star t: 03-1 01-07 End: 04-0 11-07 apply 1 dose transdermal route once daily lidocaine (SALONPAS) 4 % patch Apply 1 Patch as directed once daily. 0 10/03/2021 10/22/2021 Discontinued (Discontinued by another Health Care Provider) Comment on above: Apply 1 Patch as dir ected once daily. methylPREDNISolone 4 mg oral tablet (20 sources) Corticosteroid Star t: 07-2 0 End: 3 0 24 Methylprednisolone Discontinued 4 MG PO As Directed [...] mg Dose-Pack Take as directed. 1 Package 02/11/2022 03/26/2022 Discontinued (Course of therapy completed) Start: 02-11-2022 End: 03-26-2022 methylPREDNISolone (MEDROL, DAVID,) [...] THE AFFECTED AREA(S) THREE TIMES DAILY NEEDED 10/21/2022 Discontinued Comment on above: mupirocin 2 % topica l ointment APPLY TO THE AFFECTED AREA(S) THREE TIMES DAILY NEEDED Nebulizer and Compressor For Neb (20 sources) Start: 04-01-2022 End: 05-20-2023 Nebulizer and Compressor For Neb 1 Each as needed. Use as directed. 1 Each 04/01/2022 05/20/2023 Discontinued Start: 04-01-2022 End: 05-20-2023 Nebulizer and Compressor For Neb 1 Each as needed. Use as directed. 1 Each 0 04/01/2022 05/20/2023 Discontinued Start: 04-01-2022 Nebulizer and Compressor For Neb 1 Each as needed. Use as directed. 1 Each 0 04/01/2022 Active Start: 01-29-2022 End: 04-01-2022 Nebulizer and Compressor For Neb 1 Each as needed. Use as directed. 1 Each 01/29/2022 04/01/2022 Discontinued Start: 01-29-2022 End: 04-01-2022 Nebulizer and Compressor [...] 30 days. 180 tablet 11/21/2023 12/21/2023 Discontinued (Stockroom Helper Duplicate Med) Start: 06-13-2023 End: 11-21-2023 take 1 tablet by mouth every six hours as needed for pain oxyCODONE IR (ROXICODONE) 5 mg immediate release tablet Indications: Neoplasm related pain Take 1 tablet by mouth every 6 hours as needed for pain for up to 15 days. 60 tablet 10/21/2023 11/05/2023 Discontinued (Stockroom Helper Duplicate Med) Start: 06-12-2020 End: 03-28-2021 take 5-10 mg by mouth every six hours Oxycodone Discontinued 5 - 10 MG PO Q6H 60 8 June 12, 2020 March 28, 2021 9:14am Comment on above: Take 1-2 tablets by mouth every 6 hours as needed for pain Take 1 tablet by gabe every 6 hours as needed for pain for up to 15 days. polyethylene glycol 3350 [id number] mg powder for oral solution (4 sources) [...] Take 1 tablet by gabe once daily. potassium chloride 10 meq extended release oral tablet (20 sources) Start: 2 End: 2 take 1 tablet by mouth once daily potassium chloride (K-TAB) 10 mEq tablet Take 1 tablet by mouth once daily. 30 tablet 3 12/24/2021 03/26/2022 Discontinued (Discontinued by another Health Care Provider) Comment on above: Take 1 tablet by gabe once daily. predniSONE 10 mg oral tablet [...] 2 TABLETS, DAY 7 TAKE 1 TABLET 12/19/2021 03/26/2022 Discontinued (Course of therapy completed) [...] 1 TABLET Take 1 tablet by gabe once daily. Take 2 daily x 1 [...] on above: Take 1 tablet by gabe every 6 hours as needed. sertraline 25 [...] 11-25-2023 NaCl 0.9% 1,000 mL iv bolus sulfamethoxazole 800 mg / trimethoprim 160 mg oral tablet (20 sources) Dihydrofolate Reductase Inhibitor Antibacterial, Sulfonamide Antimicrobial Start: 01-18-2022 End: 03-26-2022 take 1 tablet by mouth twice daily sulfamethoxazole-trimethoprim (BACTRIM DS,SEPTRA DS) 800-160 mg per tablet Take 1 tablet by mouth twice daily. 01/18/2022 03/26/2022 Discontinued (Course of therapy completed) Comment on above: Take 1 tablet by gabe th twice daily. traMADol hydrochloride 50 mg oral tablet (20 sources) Opioid Agonist Start: 04-08-2022 End: 10-21-2022 take 1 tablet by mouth every four hours as needed for pain traMADol (ULTRAM) 50 mg tablet Indications: Cancer related pain Take 1 tablet by mouth every 4 hours as needed for pain. 30 tablet 04/08/2022 10/21/2022 Discontinued Comment on above: Take 1 tablet by gabe th every 4 hours as needed for pain. Problems Active Problems Problem Classification Problem Date Documented Date Episodic/Chronic Acute and chronic tonsillitis (10 sources) Mass of palatine tonsil; Translations: [Other chronic diseases of tonsils and adenoids] Onset: 3 05-27-2023 Chronic Anxiety disorders (11 sources) Generalized anxiety disorder; Translations: [Anxiety] Onset: [...] antineoplastic chemotherapy; Translations: [Antineoplastic chemotherapy induced anemia] Chronic Coronary atherosclerosis and other heart disease (20 sources) Coronary atherosclerosis; Translations: [Atherosclerotic heart disease of [place] coronary artery without angina pectoris] Onset: 2 [...] due to chemotherapeutic drug (HCC)] Onset: 4 Episodic Essential hypertension (20 sources) Essential hypertension; Translations: [Essential (primary) hypertension] Onset: 2 10-04-2021 Chronic Headache; including migraine (4 sources) Headache; including migraine; Translations: [HEADACHE UNSPECIFIED] Onset: 2 Hypertension with complications and secondary hypertension (1 source) Hypertensive urgency; Translations: [HYPERTENSIVE URGENCY] Onset: 2 Chronic Malaise and fatigue (11 sources) Malaise and fatigue; Translations: [Other malaise] Onset: 4 Episodic Miscellaneous mental health disorders (2 sources) Anxiety about body function or health; Translations: [...] malignant neoplasm] Episodic Other aftercare (1 source) care home (current) use of aspirin; Translations: [HANDLE LATHE OPERATOR CURRENT USE OF ASPIRIN] Onset: 3 Episodic Other aftercare (1 source) care home (current) use of antithrombotics/antiplate lets; Translations: [LONGTERM ANTITHROMBOT/ANTIPLATLETS ] Onset: 3 Episodic Other aftercare (1 source) 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; Translations: [OTH LONGTERM CURRENT DRUG THERAPY] Onset: 3 Episodic Other [...] field] 04-13-2021 Episodic Other lower respiratory disease (3 sources) Multiple nodules of lung; Translations: [Other [...] of other specified body structures] Chronic Other screening for suspected conditions (not mental disorders or infectious disease) (11 sources) Other specified abnormal findings of blood chemistry; Translations: [Liver function tests abnormal] Onset: 2 Episodic Other skin disorders (5 sources) Eruption; Translations: [Rash and other nonspecific [...] Onset: 2 10-04-2021 Chronic Residual codes; unclassified (6 sources) Insomnia co-occurrent and due to medical condition; Translations: [Insomnia due to medical condition] 05-16-2023 Chronic Residual codes; unclassified (1 source) Acquired absence of lung [part of]; Translations: [ACQUIRED ABSENCE OF LUNG] Onset: 3 Episodic Residual codes; unclassified (2 sources) Altered mental status; Translations: [Altered mental status, [...] the skin and subcutaneous tissue, unspecified] Episodic Spondylosis; intervertebral disc disorders; other back problems (6 sources) Lumbago with sciatica, unspecified side; Translations: [Cervicalgia] Onset: 2 Episodic Substance-related disorders (20 sources) Nicotine dependence; [...] [PAIN IN RIGHT HIP] Onset: 05-01-2022 Episodic Residual codes; unclassified (20 sources) Current drinker; Translations: [Other specified health status] Onset: 09-26-2021 10-04-2021 Episodic NEGATED: Highlighted row has been ruled out!Unclassified (2 sources) No known active problems 01-17-2023 Results Test Name Value Interpretation Reference Range Facil ity [facility] CNPNon 04-01-2024 CNPN Normal [facility] Ambulatory Visit Summaryon 0 03-31-2024 Ambulatory Visit [...] 10:00 AM EDT With: Enrique Austin Where: [address] [address]- Friday 11:00 AM EDT With: Where: [address] [address]- Medications What How Much When Instructions Unchanged [...] for choosing us for your care. Normal [facility] CNPNon 03-31-2024 CNPN Normal [facility] Family Medicine Office/Clini c Noteon 03-31-2024 Family Medicine Office/Clinic Note Family Medicine Office/Clinic Note Chief Complaint ER f/u HPI Staff Pt presents today for ER followup: Hospital: [facility] Visit date: 03/28/24 & 03/30/24 Symptoms the [...] progress notes reviewed. pt continue eliquis. Ordered: [facility] 7 day disch [id number] 2. Lymphedema of arm (I89.0: Lymphedema, not elsewhere classified) left arm is swollen 2 + edema. pt states he had an IV in that arm and the pump beeped all night long. so provider is not sure if this is phlebitis, clot or lymphedema from the cancer. stat order for doppler u/s of left arm faxed to [facility]. Pt will go straight to [facility] for u/s. encouraged him to get a lymphedema sleeve. Ordered: [facility] 7 day disch [id number] 3. Lung cancer (C34.90: Malignant neoplasm of unspecified part of unspecified bronchus or lung) ronchi and wheezing. scheduled to see oncology on 04-08. has PET scan scheduled 04/19 Ordered: [facility] 7 day disch [id number] 4. Emphysema lung (J43.9: Emphysema, unspecified) O2 on at 2 liters Ordered: [facility] 7 day disch [id number] 5. Pneumonia (J18.9: Pneumonia, unspecified organism) pt continues antibiotics prescribed by hospital Ordered: [facility] 7 day disch [id number] 6. BMI less than 19,adult (Z68.1: Body mass index [BMI] 19.9 or less, adult) pt continue drinking protein shakes Ordered: [facility] 7 day disch [id number] 7. Former smoker (Z87.891: Personal history of nicotine dependence) continue not smoking Ordered: [facility] 7 day disch [id number] Orders: dexamethasone, See Instructions, TAKE 1 TABLET BY MOUTH TWICE DAILY WITH MEALS, # 30 tab(s), Refills(s) 1, Pharmacy: [id number], 169.5, cm, 03/31/24 14:14:00 EDT, Height/Length [...] Signed By: Enrique Austin\.br\Date and Time Signed: 03/31/24 15:00 EDT Alanine aminotransferase [En zymatic activity/volume] in Serum or PlasmaOrdered By: Jair Nichols on 03-20-2024 ALT [Catalytic activity/Vol] 9 U/L Normal 7-52 [facility] Comment on above: Performed By: #### M Hector, CMP, CBC ####[place] [id number] [address] Albumin [Mass/volume] in Ser um or Plasma by Bromocresol green (BCG) dye binding methoOrdered By: Jair Nichols on 03-20-2024 Albumin BCG dye [Mass/Vol] 3.3 g/dL Low 3.5-5.7 [facility] Alkaline phosphatase [Enzyma tic activity/volume] in Serum or PlasmaOrdered By: Jair Nichols on 03-20-2024 ALP [Catalytic activity/Vol] 46 U/L Normal 34-104 [facility] Comment on above: Performed By: #### M Hector, CMP, CBC ####[place] [id number] [address] Aspartate aminotransferase [ Enzymatic activity/volume] in Serum or PlasmaOrdered By: Jair Ncihols on 03-20-2024 AST [Catalytic activity/Vol] 11 U/L Low 13-39 [facility] Comment on above: Performed By: #### M Hector, CMP, CBC ####[address] Automated basophil %Ordered By: Jair Nichols on 03-20-2024 Basophils/100 WBC (Bld) 0.2 % Normal . [facility] Comment on above: Performed By: #### M G, CMP, CBC ####[place] [id number] [facility] Automated basophil countOrde red By: Jair Nichols on 03-20-2024 Basophils (Bld) [#/Vol] 0.0 10*3/uL Normal 0.0-0.2 [facility] Comment on above: Result Comment: PERF ORMED BY: [facility] [address] [place] [address] PATHOLOGIST DENTIST ALEX CROWLEY M.D. Performed By: #### M G, CMP, CBC ####[address] Automated blood monocyte cou ntOrdered By: Jair Magdalena on 03-20-2024 Monocytes (Bld) [#/Vol] 0.5 10*3/uL Normal 0.0-0.8 [facility] Comment on above: Performed By: #### M G, CMP, CBC ####[address] Automated eosinophil %Ordere d By: Jair Magdalena on 03-20-2024 Eosinophils/100 WBC (Bld) 0.2 % Normal . [facility] Comment on above: Performed By: #### M G, CMP, CBC ####[address] Automated eosinophil countOr dered By: Jair Magdalena on 03-20-2024 Eosinophils (Bld) [#/Vol] 0.0 10*3/uL Normal 0.0-0.45 [facility] Comment on above: Performed By: #### M G, CMP, CBC ####[address] Automated monocyte %Ordered By: Jair Magdalena on 03-20-2024 Monocytes/100 WBC (Bld) 8.7 % Normal . [facility] Comment on above: Performed By: #### M G, CMP, CBC ####[address] Automated neutrophil %Ordere d By: Jair Magdalena on 03-20-2024 Neutrophils/100 WBC (Bld) 82.3 % Normal . [facility] Comment on above: Performed By: #### M G, CMP, CBC ####[address] Bilirubin.total [Mass/volume ] in Serum or PlasmaOrdered By: Jair Nichols on 03-20-2024 Bilirubin [Mass/Vol] 0.6 mg/dL Normal 0.3-1.0 [facility] Comment on above: Performed By: #### Ike Young CMP, CBC ####[place] [id number] [facility] Calcium [Mass/volume] in Ser um or PlasmaOrdered By: Jairprudence Nichols on 03-20-2024 Calcium [Mass/Vol] 8.8 mg/dL Normal 8.6-10.3 [facility] Comment on above: Performed By: #### Ike Young CMP, CBC ####[address] Carbon dioxide, total [Moles /volume] in Serum or PlasmaOrdered By: Jair Nichols on 03-20-2024 CO2 [Moles/Vol] 25.0 mmol/L Normal 21.0-31.0 [facility] Comment on above: Performed By: #### Ike Young CMP, CBC ####[place] [id number] [facility] Chloride [Moles/volume] in S juanpablo or PlasmaOrdered By: Jairadela Nichols on 03-20-2024 Chloride [Moles/Vol] 110 mmol/L High 98-107 [facility] Comment on above: Performed By: #### Ike Young CMP, CBC ####[place] [id number] [facility] Complete Blood Count Auto Di ffon 03-20-2024 Mean Corpuscular HGB Conc 32.8 g/dL Normal 32.5-35.6 [facility] Comment on above: Performed By: #### Ike Young CMP, CBC ####[place] [id number] [facility] NRBC% 0.0 /100{WBC} Normal 0-0.5 [facility] Comment on above: Performed By: #### Ike Young CMP, CBC ####[place] [id number] [facility] Comprehensive Metabolic Pane tim 03-20-2024 Albumin [Mass/Vol] 3.3 g/dL Low 3.5-5.7 [facility] Comment on above: Performed By: #### M TEGAN Young, CBC ####[address] Creatinine Clr Calc Pharmacy 58.50 Normal [facility] Comment on above: Performed By: #### M Hector, CMP, CBC ####[address] GFR/1.73 sq M.predicted MDRD (S/P/Bld) [Vol rate/Area] mL/min/{1.73_m2} Normal [facility] Comment on above: Performed By: #### Ike Young CMP, CBC ####[address] Creatinine [Mass/volume] in Serum or PlasmaOrdered By: Jair Nichols on 03-20-2024 Creatinine [Mass/Vol] 0.87 mg/dL Normal 0.70-1.30 [facility] Comment on above: Performed By: #### M Hector, TEGAN, CBC ####[address] Erythrocyte distribution wid th [Ratio] by Automated countOrdered By: Jair Nichols on 03-20-2024 Erythrocyte distribution width (RBC) [Ratio] 13.8 % Normal 12.0-14.8 [facility] Comment on above: Performed By: #### M Hector, CMP, CBC ####[address] Erythrocytes [#/volume] in B lood by Automated countOrdered By: Jair Nichols on 03-20-2024 RBC (Bld) [#/Vol] 3.54 10*6/uL Low 3.90-5.60 [facility] Comment on above: Performed By: #### M Hector, CMP, CBC ####[address] Glucose [Mass/volume] in Ser um or PlasmaOrdered By: Jair Nichols on 03-20-2024 Glucose [Mass/Vol] 101 mg/dL High 70-100 [facility] Comment on above: ADA recommended refe rence rangeRandom Glucose Reference Range is dependent on time and content of last meal. Glucose of more than 200 mg/dL in a nonstressed, ambulatory subject supports the diagnosis of Diabetes Mellitus. Result Comment: [place] om Glucose Reference Range is dependent on time and content of last meal. Glucose of more than 200 mg/dL in a nonstressed, ambulatory subject supports the diagnosis of Diabetes Mellitus. ADA recommended reference range Performed By: #### M Hector, CMP, CBC ####[facility] [id number] Hematocrit [Volume Fraction] of Blood by Automated countOrdered By: Jair Nichols on 03-20-2024 Hematocrit (Bld) [Volume fraction] 33.2 % Low 38.8-50.0 [facility] Comment on above: Performed By: #### M Hector, CMP, CBC ####[facility] [address] [place] [id number] [facility] Hemoglobin [Mass/volume] in BloodOrdered By: Jair Nichols on 03-20-2024 Hemoglobin (Bld) [Mass/Vol] 10.9 g/dL Low 13.0-17.0 [facility] Comment on above: Performed By: #### M Hector, CMP, CBC ####[facility] [id number] [place], [place] [id number] [facility] Leukocytes [#/volume] correc nani for nucleated erythrocytes in Blood by Automated counOrdered By: Jair Nichols on 03-20-2024 WBC corrected for nucl RBC Auto (Bld) [#/Vol] 5.8 10*3/uL 4.1-10.5 [facility] Leukocytes [#/volume] in Blo od by Automated countOrdered By: Jair Nichols on 03-20-2024 WBC (Bld) [#/Vol] 5.8 10*3/uL Normal 4.1-10.5 [facility] Comment on above: Performed By: #### M Hector, CMP, CBC ####[address] Lymphocytes [#/volume] in Bl ood by Automated countOrdered By: Jair Magdalena on 03-20-2024 Lymphocytes (Bld) [#/Vol] 0.5 10*3/uL Low 1.00-4.8 [facility] Comment on above: Performed By: #### M Hector, CMP, CBC ####[address] Lymphocytes/100 leukocytes i n Blood by Automated countOrdered By: Jair Magdalena on 03-20-2024 Lymphocytes/100 WBC (Bld) 8.6 % Normal . [facility] Comment on above: Performed By: #### M Hector, CMP, CBC ####[address] MCH [Entitic mass] by Automa nani countOrdered By: Jair Magdalena on 03-20-2024 MCH (RBC) [Entitic mass] 30.7 pg Normal 27.5-35.2 [facility] Comment on above: Performed By: #### M Hector, CMP, CBC ####[address] MCHC Auto (RBC) [Mass/Vol]Or dered By: Jair Magdalena on 03-20-2024 MCHC (RBC) [Mass/Vol] 32.8 g/dL 32.5-35.6 [facility] MCV [Entitic volume] by Auto mated countOrdered By: Jair Magdalena on 03-20-2024 MCV (RBC) [Entitic vol] 93.6 fL Normal 83.5-101 [facility] Comment on above: Performed By: #### M G, CMP, CBC ####[address] Magnesium [Mass/volume] in S juanpablo or PlasmaOrdered By: Jair Magdalena on 03-20-2024 Magnesium [Mass/Vol] 1.8 mg/dL Low 1.9-2.7 [facility] Comment on above: Result Comment: PERF ORMED BY: [facility] [address] [place] [address] PATHOLOGIST DENTIST ALEX CROWLEY M.D. Performed By: #### M G, CMP, CBC ####[facility] [place] [id number] [facility] Neutrophils [#/volume] in Bl ood by Automated countOrdered By: Jair Nichols on 03-20-2024 Neutrophils (Bld) [#/Vol] 4.8 10*3/uL Normal 1.8-7.7 [facility] Comment on above: Performed By: #### M Hector, CMP, CBC ####[place] [id number] [address] No Panel InformationOrdered By: Jair Nichols on 03-20-2024 Estimated GFR (CKD-EPI) > 60.0 mL/Min [facility] Creatinine Clearance (Chem 58.50 [facility] Nucleated erythrocytes [Pres ence] in Blood by Automated countOrdered By: Jair Nichols on 03-20-2024 Nucleated RBC Auto Ql (Bld) 0.0 /100{WBC} 0-0.5 [facility] Platelet mean volume [Entiti c volume] in Blood by Automated countOrdered By: Jair Nichols on 03-20-2024 Platelet mean volume (Bld) [Entitic vol] 9.5 fL Normal 6.6-10.1 [facility] Comment on above: Performed By: #### M G, CMP, CBC ####[place] [id number] [place] [id number] [facility] Platelets [#/volume] in Bloo d by Automated countOrdered By: Jair Nichols on 03-20-2024 Platelets (Bld) [#/Vol] 236 10*3/uL Normal 150-450 [facility] Comment on above: Performed By: #### M G, CMP, CBC ####[place] [id number] [address] Potassium [Moles/volume] in Serum or PlasmaOrdered By: Jair Magdalena on 03-20-2024 Potassium [Moles/Vol] 4.1 mmol/L Normal 3.5-5.1 [facility] Comment on above: Performed By: #### Ike Young CMP, CBC ####[place] [id number] Protein [Mass/volume] in Ser um or PlasmaOrdered By: Jair Magdalena on 03-20-2024 Protein [Mass/Vol] 6.3 g/dL Low 6.4-8.9 [facility] Comment on above: Performed By: #### Ike Young CMP, CBC ####[address] Serum globulin measurement b y calculation (mass/volume)Ordered By: Jair Magdalena on Globulin (S) [Mass/Vol] 3.0 g/dL Normal [facility] Comment on above: Performed By: #### Ike Young CMP, CBC ####[address] Serum or plasma albumin/glob ulin mass ratioOrdered By: Jair Magdalena on 03-20-2024 Albumin/Globulin [Mass ratio] 1.1 {ratio} Normal [facility] Comment on above: Performed By: #### Ike Young CMP, CBC ####[address] Serum or plasma anion gap de terminationOrdered By: Jair Magdalena on 03-20-2024 Anion gap [Moles/Vol] 9.1 mmol/L Normal 6.0-15.0 [facility] Comment on above: Performed By: #### Ike Young CMP, CBC ####[place] [id number] [facility] Sodium [Moles/volume] in Ser um or PlasmaOrdered By: Jair Magdalena on 03-20-2024 Sodium [Moles/Vol] 140 mmol/L Normal 136-145 [facility] Comment on above: Performed By: #### M TEGAN Young, CBC ####[facility] [address] Urea nitrogen [Mass/volume] in Serum or PlasmaOrdered By: Jair Nichols on 03-20-2024 Urea nitrogen [Mass/Vol] 20 mg/dL Normal 7-25 [facility] Comment on above: Performed By: #### M G, CMP, CBC ####[facility] [place] [address] [place] Activated partial thrombopla stin time (aPTT) in platelet poor plasma by coagulation aOrdered By: Shahbaz Lehman on 03-19-2024 aPTT Coag (PPP) [Time] 29.4 s 25.1-36.5 [facility] Comment on above: A hematocrit value g reater than 55% may lead to inaccurate results in coagulation testing. Patients having hematocrit values >55% require a special collection tube for coagulation studies. Please contact the laboratory at [phone] for redraw instructions. Alanine aminotransferase [En zymatic activity/volume] in Serum or PlasmaOrdered By: Shahbaz Lehman on 03-19-2024 ALT [Catalytic activity/Vol] 12 U/L Normal 7-52 [facility] Comment on above: Performed By: #### H S TROP, MG, PT, CMP, PTT, TSH3, CBC #### [facility] [address] [place] [address] [place] Albumin [Mass/volume] in Ser um or Plasma by Bromocresol green (BCG) dye binding methoOrdered By: Shahbaz Lehman on 03-19-2024 Albumin BCG dye [Mass/Vol] 3.7 g/dL 3.5-5.7 [facility] Alkaline phosphatase [Enzyma tic activity/volume] in Serum or PlasmaOrdered By: Shahbaz Lehman on 03-19-2024 ALP [Catalytic activity/Vol] 47 U/L Normal 34-104 [facility] Comment on above: Performed By: #### H S TROP, MG, PT, CMP, PTT, TSH3, CBC #### [facility] [address] [place] [address] [place] Aspartate aminotransferase [ Enzymatic activity/volume] in Serum or PlasmaOrdered By: Shahbaz Lehman on 03-19-2024 AST [Catalytic activity/Vol] 16 U/L Normal 13-39 [facility] Comment on above: Performed By: #### H S TROP, MG, PT, CMP, PTT, TSH3, CBC #### [address] Automated basophil %Ordered By: Shahbaz Lehman on 03-19-2024 Basophils/100 WBC (Bld) 0.5 % Normal . [facility] Comment on above: Performed By: #### H S TROP, MG, PT, CMP, PTT, TSH3, CBC #### [address] Automated basophil countOrde red By: Shahbaz Lehman on 03-19-2024 Basophils (Bld) [#/Vol] 0.0 10*3/uL Normal 0.0-0.2 [facility] Comment on above: Result Comment: PERF ORMED BY: [place] [address] PATHOLOGIST DENTIST ALEX CROWLEY M.D. Performed By: #### H S TROP, MG, PT, CMP, PTT, TSH3, CBC #### [address] Automated blood monocyte cou ntOrdered By: Shahbaz Lehman on 03-19-2024 Monocytes (Bld) [#/Vol] 0.6 10*3/uL Normal 0.0-0.8 [facility] Comment on above: Performed By: #### H S TROP, MG, PT, CMP, PTT, TSH3, CBC #### [address] Automated eosinophil %Ordere d By: Shahbaz Lehman on 03-19-2024 Eosinophils/100 WBC (Bld) 1.2 % Normal . [facility] Comment on above: Performed By: #### H S TROP, MG, PT, CMP, PTT, TSH3, CBC #### [address] Automated eosinophil countOr dered By: Shahbaz Lehman on 03-19-2024 Eosinophils (Bld) [#/Vol] 0.1 10*3/uL Normal 0.0-0.45 [facility] Comment on above: Performed By: #### H S TROP, MG, PT, CMP, PTT, TSH3, CBC #### [facility] [address] [place] [address] Automated monocyte %Ordered By: Shahbaz Lehman on 03-19-2024 Monocytes/100 WBC (Bld) 8.4 % Normal . [facility] Comment on above: Performed By: #### H S TROP, MG, PT, CMP, PTT, TSH3, CBC #### [facility] [address] [place] [address] Automated neutrophil %Ordere d By: Shahbaz Lehman on 03-19-2024 Neutrophils/100 WBC (Bld) 79.6 % Normal . [facility] Comment on above: Performed By: #### H S TROP, MG, PT, CMP, PTT, TSH3, CBC #### [facility] [address] [place] [address] Bilirubin Test strip Ql (U)O rdered By: Shahbaz Lehman on 03-19-2024 Bilirubin Ql (U) Negative Negative [facility] Bilirubin.total [Mass/volume ] in Serum or PlasmaOrdered By: Shahbaz Lehman on 03-19-2024 Bilirubin [Mass/Vol] 0.4 mg/dL Normal 0.3-1.0 [facility] Comment on above: Performed By: #### H S TROP, MG, PT, CMP, PTT, TSH3, CBC #### [address] head/brain wo conon 03-19 CT head/brain wo con [facility] [place] [address] CT Scan Report Signed Patient: Cristal Gu MR#: [id number] : 1955 Acct:[id number] Age/Sex: 69 / M ADM Date: 03/19/24 Loc: ER Room: Type: [facility] ER Attending Dr: Copies to: Shahbaz [...] Mark Jr., D.O.03/19/2024 11:52 AM Dictation Location: [place] [address] Transcribed By: [facility] 03/19/24 1152 Dictated By: Star Mark Jr, DO 03/19/24 1149 Signed By: 03/19/24 1152 Normal [facility] Calcium [Mass/volume] in Ser um or PlasmaOrdered By: Shahbaz Lehman on 03-19-2024 Calcium [Mass/Vol] 8.9 mg/dL Normal 8.6-10.3 [facility] Comment on above: Performed By: #### H S TROP, MG, PT, CMP, PTT, TSH3, CBC #### [facility] [address] Capillary blood glucose jerson urement by glucometer (mass/volume)Ordered By: Shahbaz Lehman on 03-19-2024 Glucose [Mass/Vol] 85 mg/dL Normal [facility] Comment on above: Random Glucose Refer ence Range is dependent on time and content of last meal. Glucose of more than 200 mg/dL in a nonstressed, ambulatory subject supports the diagnosis of Diabetes Mellitus. Result Comment: [place] om Glucose Reference Range is dependent on time and content of last meal. Glucose of more than 200 mg/dL in a nonstressed, ambulatory subject supports the diagnosis of Diabetes Mellitus. PERFORMED BY: [place] [address] PATHOLOGIST DENTIST ALEX CROWLEY M.D. Performed By: #### G RHIANNA ####Point of Care testing, Carbon dioxide, total [Moles /volume] in Serum or PlasmaOrdered By: Shahbaz Lehman on 03-19-2024 CO2 [Moles/Vol] 28.6 mmol/L Normal 21.0-31.0 [facility] Comment on above: Performed By: #### H S TROP, MG, PT, CMP, PTT, TSH3, CBC #### [address] Chloride [Moles/volume] in S juanpablo or PlasmaOrdered By: Shahbaz Lehman on 03-19-2024 Chloride [Moles/Vol] 102 mmol/L Normal 98-107 [facility] Comment on above: Performed By: #### H S TROP, MG, PT, CMP, PTT, TSH3, CBC #### [address] Color of Urine by AutoOrdere d By: Shahbaz Lehman on 03-19-2024 Color (U) Light-yellow Normal Yellow [facility] Comment on above: Order Comment: Name Collection Type:: Clean-Voided Midstream Performed By: #### U A ####[facility] [place] [address] Complete Blood Count Auto Di ffon 03-19-2024 Mean Corpuscular HGB Conc 33.3 g/dL Normal 32.5-35.6 [facility] Comment on above: Performed By: #### H S TROP, MG, PT, CMP, PTT, TSH3, CBC #### [place] [address] [place] Monocytes/100 WBC (Bld) 19.30 % Normal 0.00-20.00 [facility] Comment on above: Performed By: #### H S TROP, MG, PT, CMP, PTT, TSH3, CBC #### [address] NRBC% 0.0 /100{WBC} Normal 0-0.5 [facility] Comment on above: Performed By: #### H S TROP, MG, PT, CMP, PTT, TSH3, CBC #### [address] Comprehensive Metabolic Pane tim 03-19-2024 Albumin [Mass/Vol] 3.7 g/dL Normal 3.5-5.7 [facility] Comment on above: Performed By: #### H S TROP, MG, PT, CMP, PTT, TSH3, CBC #### [address] Creatinine Clr Calc Pharmacy 50.94 Normal [facility] Comment on above: Performed By: #### H S TROP, MG, PT, CMP, PTT, TSH3, CBC #### [address] GFR/1.73 sq M.predicted MDRD (S/P/Bld) [Vol rate/Area] mL/min/{1.73_m2} Normal [facility] Comment on above: Performed By: #### H S TROP, MG, PT, CMP, PTT, TSH3, CBC #### [address] Creatinine [Mass/volume] in Serum or PlasmaOrdered By: Shahbaz Lehman on 03-19-2024 Creatinine [Mass/Vol] 1.04 mg/dL Normal 0.70-1.30 [facility] [facility] Comment on above: Performed By: #### H S TROP, MG, PT, CMP, PTT, TSH3, CBC #### [address] ECG 12 lead ECGon 03-19-2024 ECG 12 lead ECG [facility] [place] [address] Electrocardiograph Report Signed Patient: Cristal Gu MR#: [id number] : 1955 Acct:[id number] Age/Sex: 69 / M ADM Date: 03/19/24 Loc: Room: [address] [place] [address] Type: ADM INOo Attending Dr: Jair Nichols [...] Lateral leads Confirmed by Deborah Lamar MD ([id number]) on 03/19/2024 11:02:32 PM Referred By: Electronically Signed By: Deborah Lamar MD Transcribed By: MUS Signed By Deborah Lamar MD 02/20 2302 Normal [facility] ECG 12 lead ECG [facility] [place] [address] Electrocardiograph Report Signed Patient: Cristal Gu MR#: [id number] : 1955 Acct:[id number] Age/Sex: 69 / M ADM Date: 03/19/24 Loc: ER Room: Type: [facility] ER Attending Dr: Ordering Provider: [...] Sinus rhythm Confirmed by Shahbaz LEHMAN DO ([id number]) on 03/19/2024 4:01:20 PM Referred By: Electronically Signed By: Shahbaz LEHMAN DO Transcribed By: MUS Signed By Shahbaz Lehman DO 0 03/19/24 1601 Normal [facility] Erythrocyte distribution wid th [Ratio] by Automated countOrdered By: Shahbaz Lehman on 03-19-2024 Erythrocyte distribution width (RBC) [Ratio] 13.7 % Normal 12.0-14.8 [facility] Comment on above: Performed By: #### H S TROP, MG, PT, CMP, PTT, TSH3, CBC #### [facility] [address] Erythrocytes [#/volume] in B lood by Automated countOrdered By: Shahbaz Lehman on 03-19-2024 RBC (Bld) [#/Vol] 3.61 10*6/uL Low 3.90-5.60 [facility] Comment on above: Performed By: #### H S TROP, MG, PT, CMP, PTT, TSH3, CBC #### [facility] [address] Glucose [Mass/volume] in Ser um or PlasmaOrdered By: Shahbaz Lehman on 03-19-2024 Glucose [Mass/Vol] 86 mg/dL Normal 70-100 [facility] Comment on above: ADA recommended refe rence rangeRandom Glucose Reference Range is dependent on time and content of last meal. Glucose of more than 200 mg/dL in a nonstressed, ambulatory subject supports the diagnosis of Diabetes Mellitus. Result Comment: [place] om Glucose Reference Range is dependent on time and content of last meal. Glucose of more than 200 mg/dL in a nonstressed, ambulatory subject supports the diagnosis of Diabetes Mellitus. ADA recommended reference range Performed By: #### H S TROP, MG, PT, CMP, PTT, TSH3, CBC #### [facility] [address] Glucose [Mass/volume] in Uri ne by Test stripOrdered By: Sahhbaz Lehman on 03-19-2024 Glucose Test strip (U) [Mass/Vol] Normal mg/dL Normal [facility] Hematocrit [Volume Fraction] of Blood by Automated countOrdered By: Shahbaz Lehman on 03-19-2024 Hematocrit (Bld) [Volume fraction] 34.1 % Low 38.8-50.0 [facility] Comment on above: Performed By: #### H S TROP, MG, PT, CMP, PTT, TSH3, CBC #### [facility] [address] Hemoglobin Test strip Ql (U) Ordered By: Shahbaz Lehman on 03-19-2024 Hemoglobin Ql (U) Negative Negative [facility] Hemoglobin [Mass/volume] in BloodOrdered By: Shahbaz Lehman on 03-19-2024 Hemoglobin (Bld) [Mass/Vol] 11.3 g/dL Low 13.0-17.0 [facility] Comment on above: Performed By: #### H S TROP, MG, PT, CMP, PTT, TSH3, CBC #### [facility] [address] INR in Platelet poor plasma by Coagulation assayOrdered By: Shahbaz Lehman on 03-19-2024 INR Coag (PPP) [Relative time] 1.0 {INR} Normal [facility] Comment on above: INR Therapeutic [...] valves: 3 - 4.5 Performed By: #### H S TROP, MG, PT, CMP, PTT, TSH3, CBC #### [facility] [address] Ketones [Presence] in Urine by Test stripOrdered By: Shahbaz Lehman on 03-19-2024 Ketones Ql (U) Negative Normal Negative [facility] Comment on above: Order Comment: Name Collection Type:: Clean-Voided Midstream Performed By: #### U A ####[facility] [id number] Leukocyte esterase [Presence ] in Urine by Test stripOrdered By: Shahbaz Lehman on 03-19-2024 Leukocyte esterase Test strip Ql (U) Negative Normal Negative [facility] Comment on above: Order Comment: Name Collection Type:: Clean-Voided Midstream Performed By: #### U A ####[facility] [id number] Leukocytes [#/volume] correc nani for nucleated erythrocytes in Blood by Automated counOrdered By: Shahbaz Lehman on 03-19-2024 WBC corrected for nucl RBC Auto (Bld) [#/Vol] 7.1 10*3/uL 4.1-10.5 [facility] Leukocytes [#/volume] in Blo od by Automated countOrdered By: Shahbaz Lehman on 03-19-2024 WBC (Bld) [#/Vol] 7.1 10*3/uL Normal 4.1-10.5 [facility] Comment on above: Performed By: #### H S TROP, MG, PT, CMP, PTT, TSH3, CBC #### [facility] [address] Lymphocytes [#/volume] in Bl ood by Automated countOrdered By: Shahbaz Lehman on 03-19-2024 Lymphocytes (Bld) [#/Vol] 0.7 10*3/uL Low 1.00-4.8 [facility] Comment on above: Performed By: #### H S TROP, MG, PT, CMP, PTT, TSH3, CBC #### [facility] [address] [place] [address] [place] Lymphocytes/100 leukocytes i n Blood by Automated countOrdered By: Shahbaz Lehman on 03-19-2024 Lymphocytes/100 WBC (Bld) 10.3 % Normal . [facility] Comment on above: Performed By: #### H S TROP, MG, PT, CMP, PTT, TSH3, CBC #### [facility] [address] [place] [address] [place] MCH [Entitic mass] by Automa nani countOrdered By: Shahbaz Lehman on 03-19-2024 MCH (RBC) [Entitic mass] 31.4 pg Normal 27.5-35.2 [facility] Comment on above: Performed By: #### H S TROP, MG, PT, CMP, PTT, TSH3, CBC #### [facility] [address] MCHC Auto (RBC) [Mass/Vol]Or dered By: Shahbaz Lehman on 03-19-2024 MCHC (RBC) [Mass/Vol] 33.3 g/dL 32.5-35.6 [facility] MCV [Entitic volume] by Auto mated countOrdered By: Shahbaz Lehman on 03-19-2024 MCV (RBC) [Entitic vol] 94.3 fL Normal 83.5-101 [facility] Comment on above: Performed By: #### H S TROP, MG, PT, CMP, PTT, TSH3, CBC #### [facility] [address] [place] [address] Magnesium [Mass/volume] in S juanpablo or PlasmaOrdered By: Shahbaz Lehman on 03-19-2024 Magnesium [Mass/Vol] 1.6 mg/dL Low 1.9-2.7 [facility] Comment on above: Performed By: #### H S TROP, MG, PT, CMP, PTT, TSH3, CBC ####[facility] [id number] [place] [address] Monocyte distribution width [Entitic volume] in Blood by AutomatedOrdered By: Shahbaz Lehman on 03-19-2024 Monocyte distribution width Auto (Bld) [Entitic vol] 19.30 % 0.00-20.00 [facility] Neutrophils [#/volume] in Bl ood by Automated countOrdered By: Shahbaz Lehman on 03-19-2024 Neutrophils (Bld) [#/Vol] 5.7 10*3/uL Normal 1.8-7.7 [facility] Comment on above: Performed By: #### H S TROP, MG, PT, CMP, PTT, TSH3, CBC #### [facility] [address] Nitrite Test strip Ql (U)Ord ered By: Shahbaz Lehman on 03-19-2024 Nitrite Ql (U) Negative Negative [facility] No Panel InformationOrdered By: Shahbaz Lehman on 03-19-2024 Estimated GFR (CKD-EPI) > 60.0 mL/Min [facility] Creatinine Clearance (Chem 50.94 [facility] Nucleated erythrocytes [Pres ence] in Blood by Automated countOrdered By: Shahbaz Lehman on 03-19-2024 Nucleated RBC Auto Ql (Bld) 0.0 /100{WBC} 0-0.5 [facility] Partial Thromboplastin Timeo n 03-19-2024 aPTT Coag (Bld) [Time] 29.4 s Normal 25.1-36.5 [facility] Comment on above: Result Comment: A he matocrit value greater than 55% may lead to inaccurate results in coagulation testing. Patients having hematocrit values >55% require a special collection tube for coagulation studies. Please contact the laboratory at [phone] for redraw instructions. PERFORMED BY: [place] [address] PATHOLOGIST DENTIST ALEX CROWLEY M.D. Performed By: #### H S TROP, MG, PT, CMP, PTT, TSH3, CBC #### [facility] [address] [place] [address] Platelet mean volume [Entiti c volume] in Blood by Automated countOrdered By: Shahbaz Lehman on 03-19-2024 Platelet mean volume (Bld) [Entitic vol] 9.2 fL Normal 6.6-10.1 [facility] Comment on above: Performed By: #### H S TROP, MG, PT, CMP, PTT, TSH3, CBC #### [facility] [address] [place] [address] Platelets [#/volume] in Bloo d by Automated countOrdered By: Shahbaz Lehman on 03-19-2024 Platelets (Bld) [#/Vol] 239 10*3/uL Normal 150-450 [facility] Comment on above: Performed By: #### H S TROP, MG, PT, CMP, PTT, TSH3, CBC #### [place] [address] [place] Potassium [Moles/volume] in Serum or PlasmaOrdered By: Shahbaz Lehman on 03-19-2024 Potassium [Moles/Vol] 3.6 mmol/L Normal 3.5-5.1 [facility] Comment on above: Performed By: #### H S TROP, MG, PT, CMP, PTT, TSH3, CBC #### [facility] [address] [place] [id number] [facility] Protein Test strip (U) [Mass /Vol]Ordered By: Shahbaz Lehman on 03-19-2024 Protein (U) [Mass/Vol] Negative Negative [facility] Protein [Mass/volume] in Ser um or PlasmaOrdered By: Shahbaz Lehman on 03-19-2024 Protein [Mass/Vol] 6.7 g/dL Normal 6.4-8.9 [facility] Comment on above: Performed By: #### H S TROP, MG, PT, CMP, PTT, TSH3, CBC #### [facility] [address] [place] [id number] [facility] Prothrombin time (PT)Ordered By: Shahbaz Lehman on 03-19-2024 PT Coag (PPP) [Time] 11.6 s Normal 9.0-12.9 [facility] Comment on above: A hematocrit value g reater than 55% may lead to inaccurate results in coagulation testing. Patients having hematocrit values >55% require a special collection tube for coagulation studies. Please contact the laboratory at [phone] for redraw instructions. Result Comment: A he matocrit value greater than 55% may lead to inaccurate results in coagulation testing. Patients having hematocrit values >55% require a special collection tube for coagulation studies. Please contact the laboratory at [phone] for redraw instructions. Performed By: #### H S TROP, MG, PT, CMP, PTT, TSH3, CBC #### [facility] [address] [place] [id number] [facility] Serum globulin measurement b y calculation (mass/volume)Ordered By: Shahbaz Lehman on 03-19-2024 Globulin (S) [Mass/Vol] 3.0 g/dL Normal [facility] Comment on above: Performed By: #### H S TROP, MG, PT, CMP, PTT, TSH3, CBC #### [facility] [address] Serum or plasma albumin/glob ulin mass ratioOrdered By: Shahbaz Lehman on 03-19-2024 Albumin/Globulin [Mass ratio] 1.2 {ratio} Normal [facility] Comment on above: Performed By: #### H S TROP, MG, PT, CMP, PTT, TSH3, CBC #### [facility] [address] [place] [address] Serum or plasma anion gap de terminationOrdered By: Shahbaz Lehman on 03-19-2024 Anion gap [Moles/Vol] 11.0 mmol/L Normal 6.0-15.0 [facility] Comment on above: Performed By: #### H S TROP, MG, PT, CMP, PTT, TSH3, CBC #### [facility] [address] [place] [address] Sodium [Moles/volume] in Ser um or PlasmaOrdered By: Shahbaz Lehman on 03-19-2024 Sodium [Moles/Vol] 138 mmol/L Normal 136-145 [facility] Comment on above: Performed By: #### H S TROP, MG, PT, CMP, PTT, TSH3, CBC #### [facility] [address] [place] [address] Specific gravity Test strip (U) [Rel density]Ordered By: Shahbaz Lehman on 03-19-2024 Specific gravity (U) [Rel density] 1.010 1.001-1.030 [facility] Thyrotropin [Units/volume] i n Serum or PlasmaOrdered By: Shahbaz Lehman on 03-19-2024 TSH Qn 3.36 m[IU]/L Normal 0.45-5.33 [facility] Comment on above: Result Comment: PERF ORMED BY: [place] [address] PATHOLOGIST DENTIST ALEX CROWLEY M.D. Performed By: #### H S TROP, MG, PT, CMP, PTT, TSH3, CBC ####[facility] [id number] [place] [address] Troponin I High Sensitivityo n 03-19-2024 Troponin I High Sensitivity 18.2 pg/mL Normal 0.0-20.0 [facility] Comment on above: Result Comment: PERF ORMED BY: [place] [address] PATHOLOGIST DENTIST ALEX CROWLEY M.D. Performed By: #### H S TROP ####[facility] [id number] Troponin I High Sensitivity 19.4 pg/mL Normal 0.0-20.0 [facility] Comment on above: Result Comment: PERF ORMED BY: [place] [address] PATHOLOGIST DENTIST ALEX CROWLEY M.D. Performed By: #### H S TROP, MG, PT, CMP, PTT, TSH3, CBC #### [facility] [address] [place] [address] Troponin I.cardiac [Mass/vol ume] in Serum or Plasma by Detection limit <= 0.01 ng/Ordered By: Deborah Lamar on 03-19-2024 Troponin I.cardiac DL <= 0.01 ng/mL [Mass/Vol] 18.2 pg/mL 0.0-20.0 [facility] Troponin I.cardiac [Mass/vol ume] in Serum or Plasma by Detection limit <= 0.01 ng/Ordered By: Shahbaz Lehman on 03-19-2024 Troponin I.cardiac DL <= 0.01 ng/mL [Mass/Vol] 19.4 pg/mL 0.0-20.0 [facility] Urea nitrogen [Mass/volume] in Serum or PlasmaOrdered By: Shahbaz Lehman on 03-19-2024 Urea nitrogen [Mass/Vol] 26 mg/dL High 02-11 [facility] Comment on above: Performed By: #### H S TROP, MG, PT, CMP, PTT, TSH3, CBC #### [facility] [address] [place] [id number] [facility] Urinalysison 03-19-2024 Bilirubin,Urine Negative Normal Negative [facility] Comment on above: Order Comment: Name Collection Type:: Clean-Voided Midstream Performed By: #### U A ####[address] [address] [facility] Glucose Ql (U) Normal Normal Normal [facility] Comment on above: Order Comment: Name Collection Type:: Clean-Voided Midstream Performed By: #### U A ####[address] [address] [facility] Nitrite,Urine Negative Normal Negative [facility] Comment on above: Order Comment: Name Collection Type:: Clean-Voided Midstream Performed By: #### U A ####[address] [address] [facility] Occult Blood,Urine Negative Normal Negative [facility] Comment on above: Order Comment: Name Collection Type:: Clean-Voided Midstream Result Comment: PERF ORMED BY: [facility] [address] [place] [address] PATHOLOGIST DENTIST ALEX CROWLEY M.D. Performed By: #### U A ####[address] [address] [facility] Protein,Urine Negative Normal Negative [facility] Comment on above: Order Comment: Name Collection Type:: Clean-Voided Midstream Performed By: #### U A ####[address] [address] [facility] Specificy [place],Urine 1.010 Normal 1.001-1.030 [facility] Comment on above: Order Comment: Name Collection Type:: Clean-Voided Midstream Performed By: #### U A ####[address] [address] [facility] Urobilinogen,Urine Normal Normal Normal [facility] Comment on above: Order Comment: Name Collection Type:: Clean-Voided Midstream Performed By: #### U A ####[address] [address] [facility] Urine appearanceOrdered By: Shahbaz Lehman on 03-19-2024 Appearance (U) Clear Normal Clear [facility] Comment on above: Order Comment: Name Collection Type:: Clean-Voided Midstream Performed By: #### U A ####[facility] [id number] Urobilinogen Test strip (U) [Mass/Vol]Ordered By: Shahbaz Lehman on 03-19-2024 Urobilinogen (U) [Mass/Vol] Normal mg/dL Normal [facility] XR chest 2V*on 03-19-2024 XR chest 2V* [facility] [address] [place] [address] [place] [address] XRay Report Signed Patient: Cristal Gu MR#: [id number] : 1955 Acct:[id number] Age/Sex: 69 / M ADM Date: 03/19/24 Loc: ER Room: Type: [facility] ER Attending Dr: Copies to: Shahbaz [...] Mark Jr., D.OJudi03/19/2024 11:49 AM Dictation Location: [place] [address] Transcribed By: [facility] 03/19/24 1149 Dictated By: Star Mark Jr, DO 03/19/24 1148 Signed By: 03/19/24 1149 Normal [facility] pH of Urine by Test stripOrd ered By: Shahbaz Lehman on 03-19-2024 pH (U) 6.5 [pH] Normal 5.0-9.0 [facility] Comment on above: Order Comment: Name Collection Type:: Clean-Voided Midstream Performed By: #### U A ####[facility] [id number] [place] [address] [facility] CBC W Auto Differential pane l (Bld)on 03-18-2024 Basophils (Bld) [#/Vol] 10*3/uL Normal <0.11 [facility] Comment on above: Order Comment: Speci men Type: BLOOD SPECIMENOrdering Facility: [facility] Address: [address] [place] [address] Performed By: #### 5 7021-8 ####[facility] LABCLIA [id number] [place] [address] Basophils/100 WBC (Bld) 0.2 % Normal [facility] Comment on above: Order Comment: Speci men Type: BLOOD SPECIMENOrdering Facility: [facility] Address: [address] [place] [address] Performed By: #### 5 7021-8 ####[facility] LABCLIA [id number] [place] [address] Differential cell count method Nom (Bld) Auto Normal [facility] Comment on above: Order Comment: Speci men Type: BLOOD SPECIMENOrdering Facility: [facility] Address: [address] [place] [address] Performed By: #### 5 7021-8 ####[facility] LABCLIA [id number] [place] [address] Eosinophils (Bld) [#/Vol] 0.03 10*3/uL Normal <0.46 [facility] Comment on above: Order Comment: Speci men Type: BLOOD SPECIMENOrdering Facility: [facility] Address: [address] [place] [address] Performed By: #### 5 7021-8 ####[facility] LABCLIA [id number] [place] [address] Eosinophils/100 WBC (Bld) 0.3 % Normal [facility] Comment on above: Order Comment: Speci men Type: BLOOD SPECIMENOrdering Facility: [facility] Address: [address] [place] [address] Performed By: #### 5 7021-8 ####[facility] LABCLIA [id number] [place] [address] Erythrocyte distribution width (RBC) [Ratio] 13.2 % Normal 11.5-15.0 [facility] Comment on above: Order Comment: Speci men Type: BLOOD SPECIMENOrdering Facility: [facility] Address: [address] [place] [address] Performed By: #### 5 7021-8 ####[facility] LABIA [id number] [place] [address] Hematocrit (Bld) [Volume fraction] 33.8 % Low 39.0-51.0 [facility] Comment on above: Order Comment: Speci men Type: BLOOD SPECIMENOrdering Facility: [facility] Address: [address] [place] [address] Performed By: #### 5 7021-8 ####[facility] LABIA [id number] [place] [address] Hemoglobin (Bld) [Mass/Vol] 11.3 g/dL Low 13.0-17.0 [facility] Comment on above: Order Comment: Speci men Type: BLOOD SPECIMENOrdering Facility: [facility] Address: [address] [place] [address] Performed By: #### 5 7021-8 ####[facility] LABIA [id number] [place] [address] Immature granulocytes (Bld) [#/Vol] 0.05 10*3/uL Normal <0.10 [facility] Comment on above: Order Comment: Speci men Type: BLOOD SPECIMENOrdering Facility: [facility] Address: [address] [place] [address] Performed By: #### 5 7021-8 ####[facility] LABIA [id number] [place] [address] Immature granulocytes/100 WBC (Bld) 0.6 % Normal [facility] Comment on above: Order Comment: Speci men Type: BLOOD SPECIMENOrdering Facility: [facility] Address: [address] [place] [address] Performed By: #### 5 7021-8 ####[facility] LABCLIA [id number] [place] [address] Lymphocytes (Bld) [#/Vol] 0.85 10*3/uL Low 1.00-4.00 [facility] Comment on above: Order Comment: Speci men Type: BLOOD SPECIMENOrdering Facility: [facility] Address: [address] [place] [address] Performed By: #### 5 7021-8 ####[facility] LABCLIA [id number] [place] [address] Lymphocytes/100 WBC (Bld) 9.9 % Normal [facility] Comment on above: Order Comment: Speci men Type: BLOOD SPECIMENOrdering Facility: [facility] Address: [address] [place] [address] Performed By: #### 5 7021-8 ####[facility] LABCLIA [id number] [place] [address] MCH (RBC) [Entitic mass] 31.0 pg Normal 26.0-34.0 [facility] Comment on above: Order Comment: Speci men Type: BLOOD SPECIMENOrdering Facility: [facility] Address: [address] [place] [address] Performed By: #### 5 7021-8 ####[facility] LABCLIA [id number] [place] [address] MCHC (RBC) [Mass/Vol] 33.4 g/dL Normal 30.5-36.0 [facility] Comment on above: Order Comment: Speci men Type: BLOOD SPECIMENOrdering Facility: [facility] Address: [address] [place] [address] Performed By: #### 5 7021-8 ####[facility] LABCLIA [id number] [place] [address] MCV (RBC) [Entitic vol] 92.6 fL Normal 80.0-100.0 [facility] Comment on above: Order Comment: Speci men Type: BLOOD SPECIMENOrdering Facility: [facility] Address: [address] [place] [address] Performed By: #### 5 7021-8 ####[facility] LABCLIA [id number] [place] [address] Monocytes (Bld) [#/Vol] 0.82 10*3/uL Normal <0.87 [facility] Comment on above: Order Comment: Speci men Type: BLOOD SPECIMENOrdering Facility: [facility] Address: [address] [place] [address] Performed By: #### 5 7021-8 ####[facility] LABCLIA [id number] [place] [address] Monocytes/100 WBC (Bld) 9.6 % Normal [facility] Comment on above: Order Comment: Speci men Type: BLOOD SPECIMENOrdering Facility: [facility] Address: [address] [place] [address] Performed By: #### 5 7021-8 ####[facility] LABCLIA [id number] [place] [address] Neutrophils (Bld) [#/Vol] 6.81 10*3/uL Normal 1.45-7.50 [facility] Comment on above: Order Comment: Speci men Type: BLOOD SPECIMENOrdering Facility: [facility] Address: [address] [place] [address] Performed By: #### 5 7021-8 ####[facility] LABCLIA [id number] [place] [address] Neutrophils/100 WBC (Bld) 79.4 % Normal [facility] Comment on above: Order Comment: Speci men Type: BLOOD SPECIMENOrdering Facility: [facility] Address: [address] [place] [address] Performed By: #### 5 7021-8 ####[facility] LABCLIA [id number] [place] [address] Nucleated RBC (Bld) [#/Vol] 10*3/uL Normal <0.01 [facility] Comment on above: Order Comment: Speci men Type: BLOOD SPECIMENOrdering Facility: [facility] Address: [address] [place] [address] Performed By: #### 5 7021-8 ####[facility] LABCLIA [id number] [place] [address] Nucleated RBC/100 WBC (Bld) [Ratio] 0.0 /100 WBC Normal [facility] Comment on above: Order Comment: Speci men Type: BLOOD SPECIMENOrdering Facility: [facility] Address: [address] [place] [address] Performed By: #### 5 7021-8 ####[facility] LABCLIA [id number] [place] [address] Platelet mean volume (Bld) [Entitic vol] 10.4 fL Normal 9.0-12.7 [facility] Comment on above: Order Comment: Speci men Type: BLOOD SPECIMENOrdering Facility: [facility] Address: [address] [place] [address] Performed By: #### 5 7021-8 ####[facility] LABCLIA [id number] [place] [address] Platelets (Bld) [#/Vol] 250 10*3/uL Normal 150-400 [facility] Comment on above: Order Comment: Speci men Type: BLOOD SPECIMENOrdering Facility: [facility] Address: [address] [place] [address] Performed By: #### 5 7021-8 ####[facility] LABCLIA [id number] [place] [address] RBC (Bld) [#/Vol] 3.65 10*6/uL Low 4.20-6.00 [facility] Comment on above: Order Comment: Speci men Type: BLOOD SPECIMENOrdering Facility: [facility] Address: [address] [place] [address] Performed By: #### 5 7021-8 ####[facility] LABIA [id number] [place] [address] WBC (Bld) [#/Vol] 8.58 10*3/uL Normal 3.70-11.00 [facility] Comment on above: Order Comment: Speci men Type: BLOOD SPECIMENOrdering Facility: [facility] Address: [address] [place] [address] Performed By: #### 5 7021-8 ####[facility] [id number] [place] [address] CNOVSPon 03-18-2024 CNOVSP Normal [facility] CNPNon 03-18-2024 CNPN Normal [facility] Comprehensive metabolic 2000 panelon 03-18-2024 Albumin [Mass/Vol] 4.2 g/dL Normal 3.9-4.9 [facility] Comment on above: Order Comment: Speci men Type: BLOOD SPECIMENOrdering Facility: [facility] Address: [address] [place] [address] Performed By: #### 2 4323-8 ####[facility] LABIA [id number] [place] [address] ALP [Catalytic activity/Vol] 43 U/L Normal 38-113 [facility] Comment on above: Order Comment: Speci men Type: BLOOD SPECIMENOrdering Facility: [facility] Address: [address] [place] [address] Performed By: #### 2 4323-8 ####[facility] LABCLIA [id number] [place] [address] ALT [Catalytic activity/Vol] 7 U/L Low 10-54 [facility] Comment on above: Order Comment: Speci men Type: BLOOD SPECIMENOrdering Facility: [facility] Address: [address] [place] [address] Performed By: #### 2 4323-8 ####[facility] LABCLIA [id number] [place] [address] Anion gap [Moles/Vol] 9 mmol/L Normal 8-15 [facility] Comment on above: Order Comment: Speci men Type: BLOOD SPECIMENOrdering Facility: [facility] Address: [address] [place] [address] Performed By: #### 2 4323-8 ####[facility] LABCLIA [id number] [place] [address] AST [Catalytic activity/Vol] 11 U/L Low 14-40 [facility] Comment on above: Order Comment: Speci men Type: BLOOD SPECIMENOrdering Facility: [facility] Address: [address] [place] [address] Performed By: #### 2 4323-8 ####[facility] LABCLIA [id number] [place] [address] Bilirubin [Mass/Vol] 0.3 mg/dL Normal 0.2-1.3 [facility] Comment on above: Order Comment: Speci men Type: BLOOD SPECIMENOrdering Facility: [facility] Address: [address] [place] [address] Performed By: #### 2 4323-8 ####[facility] LABCLIA [id number] [place] [address] Calcium [Mass/Vol] 10.0 mg/dL Normal 8.5-10.2 [facility] Comment on above: Order Comment: Speci men Type: BLOOD SPECIMENOrdering Facility: [facility] Address: [address] [place] [address] Performed By: #### 2 4323-8 ####[facility] LABCLIA [id number] [place] [address] Chloride [Moles/Vol] 103 mmol/L Normal 98-107 [facility] Comment on above: Order Comment: Speci men Type: BLOOD SPECIMENOrdering Facility: [facility] Address: [address] [place] [address] Performed By: #### 2 4323-8 ####[facility] LABCLIA [id number] [place] [address] CO2 [Moles/Vol] 27 mmol/L Normal 22-30 [facility] Comment on above: Order Comment: Speci men Type: BLOOD SPECIMENOrdering Facility: [facility] Address: [address] [place] [address] Performed By: #### 2 4323-8 ####[facility] LABCLIA [id number] [place] [address] Creatinine [Mass/Vol] 1.08 mg/dL Normal 0.73-1.22 [facility] Comment on above: Order Comment: Speci men Type: BLOOD SPECIMENOrdering Facility: [facility] Address: [address] [place] [address] Performed By: #### 2 4323-8 ####[facility] LABCLIA [id number] [place] [address] Creatinine and Glomerular filtration rate.predicted panel (S/P/Bld) 75 mL/min/1.73m??? Normal >=60 [facility] Comment on above: Order Comment: Speci men Type: BLOOD SPECIMENOrdering Facility: [facility] Address: [address] [place] [address] Result Comment: Landy mated Glomerular Filtration Rate [...] actual GFR. Performed By: #### 2 4323-8 ####[facility] LABCLIA [id number] [place] [address] Glucose [Mass/Vol] 87 mg/dL Normal 74-99 [facility] Comment on above: Order Comment: Speci men Type: BLOOD SPECIMENOrdering Facility: [facility] Address: [address] [place], [place] [address] Result Comment: The [place] Diabetes Association (ADA) provides guidance for cutoff [...] Standards of Medical Care in Diabetes 2016, [place] [employer]. Diabetes Care. 2016.39(Suppl 1). Performed By: #### 2 4323-8 ####[facility] LABCLIA [id number] [place] [address] Potassium [Moles/Vol] 4.1 mmol/L Normal 3.7-5.1 [facility] Comment on above: Order Comment: Speci men Type: BLOOD SPECIMENOrdering Facility: [facility] Address: [address] [place] [address] Performed By: #### 2 4323-8 ####[facility] LABCLIA [id number] [place] [address] Protein [Mass/Vol] 6.9 g/dL Normal 6.3-8.0 [facility] Comment on above: Order Comment: Josei men Type: BLOOD SPECIMENOrdering Facility: [facility] Address: [address] [place] [address] Performed By: #### 2 4323-8 ####[facility] LABCLIA [id number] [place] [address] Sodium [Moles/Vol] 139 mmol/L Normal 136-144 [facility] Comment on above: Order Comment: Speci men Type: BLOOD SPECIMENOrdering Facility: [facility] Address: [address] [place] [address] Performed By: #### 2 4323-8 ####[facility] LABCLIA [id number] [place] [address] Urea nitrogen [Mass/Vol] 27 mg/dL High 9-24 [facility] Comment on above: Order Comment: Speci men Type: BLOOD SPECIMENOrdering Facility: [facility] Address: [address] [place] [address] Performed By: #### 2 4323-8 ####[facility] LABCLIA [id number] [place] [address] ECG 12 lead ECGon 03-18-2024 ECG 12 lead ECG [facility] [place] [address] Electrocardiograph Report Signed Patient: Cristal Gu MR#: [id number] : 1955 Acct:[id number] Age/Sex: 69 / M ADM Date: 03/18/24 Loc: ER Room: Type: [facility] ER Attending Dr: Ordering Provider: [...] change was found Confirmed by Jonathan Chan ([id number]) on 03/20/2024 6:35:46 PM Referred By: Electronically Signed By: Jonathan Chan Transcribed By: MUS Signed By Jonathan Chan MD 03/20/24 1835 Normal [facility] TSH SerPl-aCncon 03-18-2024 TSH Qn 6.660 m[IU]/L High 0.270-4.200 [facility] Comment on above: Order Comment: Speci men Type: BLOOD SPECIMENOrdering Facility: [facility] Address: [address] [place] [address] Performed By: #### 3 016-3 ####[facility] LABCLIA [id number] [facility] [id number] [id number] [facility] Ambulatory Visit Summaryon 0 03-17-2024 Ambulatory Visit [...] 10:00 AM EDT With: Enrique Austin Where: [facility] [address] [address]- Friday 11:00 AM EDT With: Where: [address] [address]- Medications What How Much When Instructions Unchanged [...] for choosing us for your care. Normal [facility] Medicine Office/Clini c Noteon 03-17-2024 Family Medicine [...] pt [facility] but [...] SARS-CoV-2 (COVID-19) mRNA-1273 vaccine 11/15/2020 Recorded Normal [facility] Comment on above: Result Comment: Elec tronically Signed By: Enrique Austin\.br\Date and Time Signed: 03/17/24 12:13 EDT CNOVon 03-15-2024 CNOV Normal [facility] CNPNon 03-15-2024 CNPN Normal [facility] CNPNon 03-09-2024 CNPN Normal [facility] GLUCOSE, BLOOD (POC)on 03-09 Glucose [Mass/Vol] 93 mg/dL 74 - 99 mg/dL [facility] Comment on above: Location:[facility], [address] [place] [address] , [place], [place], [address] The Accu-Chek Inform II glucose meter has [...] blood gas instrument) in the above situations. [facility] NM PET/CT SKULL-THIGH SUBQon 03-09-2024 NM PET/CT SKULL-THIGH SUBQ Normal [facility] PET+CT Guidance for localiza tion of tumor [...] any questions regarding this interpretation, please call [phone]. If you are unable to reach us at the number above, please feel free to contact [facility] eRadiology at [phone]. DIVISION OF RADIOLOGY * * *Final Report* [...] mCi * Uptake Time: minutes * Radiopharmaceutical: S01-Qqqqiehuwylzppgf se (FDG) COMPARISON: PET/CT 11/25/2023 RESULT: REFERENCES: [...] radiotracer avid lesion. DIVISION OF RADIOLOGY Provider, [facility] - 03/09/2024 * * *Final Report* * [...] mCi * Uptake Time: minutes * Radiopharmaceutical: U43-Uqnhajxhukbxdtfw se (FDG) COMPARISON: PET/CT 11/25/2023 RESULT: REFERENCES: [...] any questions regarding this interpretation, please call [phone]. If you are unable to reach us at the number above, please feel free to contact [facility] eRadiology at [phone]. [facility] Radiology Study observation (narrative) [facility] PET+CT Guidance for localiza tion of tumor of Skull base to mid-thigh-- W 18F-FDG IVOrdered By: Ccf Provider on 03-09-2024 [facility] CNPNon 03-01-2024 CNPN Normal [facility] Family Medicine Office/Clini c Noteon 03-01-2024 Family Medicine Office/Clinic Note Family Medicine Office/Clinic Note HI Vasquez is a 69 year old male presenting for ER follow up ER followup: Hospital: [facility] Visit date: 02/20/24 Symptoms the patient presented [...] up at pharmacy. [facility]. pt was provided Dr. Guaman's phone number [...] SARS-CoV-2 (COVID-19) mRNA-1273 vaccine 11/15/2020 Recorded Normal [facility] Comment on above: Result Comment: Elec tronically Signed By: Enrique Austin\.miladys\Date and Time Signed: 03/01/24 11:20 EDT CNPNon 02-24-2024 CNPN Normal [facility] CNPNon 02-20-2024 CNPN Normal [facility] CNPNon 02-18-2024 CNPN Normal [facility] CNPNon 02-16-2024 CNPN Normal [facility] CNPNon 02-10-2024 CNPN Normal [facility] XR chest 2V*on 02-08-2024 XR chest 2V* [facility] Main [place] [address] [place] [address] XRay Report Signed Patient: Cristal Gu MR#: [id number] : 1955 Acct:[id number] Age/Sex: 68 / M ADM Date: 02/07/24 Loc: ER Room: Type: [facility] ER Attending Dr: Copies to: [...] Buzz Barroso M.D.02/08/2024 9:12 AM Dictation Location: [place] [address] Transcribed By: [facility] 02/08/24911 Dictated By: Buzz Barroso DO 02/08/24909 Signed By: 02/08/24911 Normal [facility] Alanine aminotransferase [En zymatic activity/volume] in Serum or PlasmaOrdered By: John Dominguez on 02-07-2024 ALT [Catalytic activity/Vol] 10 U/L Normal [facility] Comment on above: Performed By: #### S CAN CBC, CMP, BNP, CK, HS TROP ####[address] Albumin [Mass/volume] in Ser um or Plasma by Bromocresol green (BCG) dye binding methoOrdered By: John Dominguez on 02-07-2024 Albumin BCG dye [Mass/Vol] 3.6 g/dL 3.5-5.7 [facility] Alkaline phosphatase [Enzyma tic activity/volume] in Serum or PlasmaOrdered By: John Dominguez on 02-07-2024 ALP [Catalytic activity/Vol] 38 U/L Normal 34-104 [facility] Comment on above: Performed By: #### S CAN CBC, CMP, BNP, CK, HS TROP ####[address] Aspartate aminotransferase [ Enzymatic activity/volume] in Serum or PlasmaOrdered By: John Dominguez on 02-07-2024 AST [Catalytic activity/Vol] 20 U/L Normal 13-39 [facility] Comment on above: Performed By: #### S CAN CBC, CMP, BNP, CK, HS TROP ####[address] Automated basophil %Ordered By: John Dominguez on 02-07-2024 Basophils/100 WBC (Bld) 0.7 % Normal . [facility] Comment on above: Performed By: #### S CAN CBC, CMP, BNP, CK, HS TROP ####[address] Automated basophil countOrde red By: John Dominguez on 02-07-2024 Basophils (Bld) [#/Vol] 0.0 10*3/uL Normal 0.0-0.2 [facility] Comment on above: Performed By: #### S CAN CBC, CMP, BNP, CK, HS TROP ####[address] Automated blood monocyte cou ntOrdered By: John Dominguez on 02-07-2024 Monocytes (Bld) [#/Vol] 0.4 10*3/uL Normal 0.0-0.8 [facility] Comment on above: Performed By: #### S CAN CBC, CMP, BNP, CK, HS TROP ####[address] Automated eosinophil %Ordere d By: John Dominguez on 02-07-2024 Eosinophils/100 WBC (Bld) 0.1 % Normal . [facility] Comment on above: Performed By: #### S CAN CBC, CMP, BNP, CK, HS TROP ####[address] Automated eosinophil countOr dered By: John Dominguez on 02-07-2024 Eosinophils (Bld) [#/Vol] 0.0 10*3/uL Normal 0.0-0.45 [facility] Comment on above: Performed By: #### S CAN CBC, CMP, BNP, CK, HS TROP ####[address] Automated monocyte %Ordered By: John Dominguez on 02-07-2024 Monocytes/100 WBC (Bld) 9.5 % Normal . [facility] Comment on above: Performed By: #### S CAN CBC, CMP, BNP, CK, HS TROP ####[address] Automated neutrophil %Ordere d By: John Dominguez on 02-07-2024 Neutrophils/100 WBC (Bld) 75.4 % Normal . [facility] Comment on above: Performed By: #### S CAN CBC, CMP, BNP, CK, HS TROP ####[address] BNP ser/plasOrdered By: John Dominguez on 02-07-2024 Natriuretic peptide B (Bld) [Mass/Vol] 123.0 pg/mL High 5-100 [facility] Comment on above: Result Comment: PERF ORMED BY: [facility] [address] [place] [address] PATHOLOGIST DENTIST ALEX CROWLEY M.D. Performed By: #### S CAN CBC, CMP, BNP, CK, HS TROP ####[place] [id number] [facility] Bilirubin.total [Mass/volume ] in Serum or PlasmaOrdered By: John Dominguez on 02-07-2024 Bilirubin [Mass/Vol] 0.7 mg/dL Normal 0.3-1.0 [facility] Comment on above: Performed By: #### S CAN CBC, CMP, BNP, CK, HS TROP ####[place] [id number] [facility] Calcium [Mass/volume] in Ser um or PlasmaOrdered By: John Dominguez on 02-07-2024 Calcium [Mass/Vol] 9.4 mg/dL Normal 8.6-10.3 [facility] Comment on above: Performed By: #### S CAN CBC, CMP, BNP, CK, HS TROP ####[address] Carbon dioxide, total [Moles /volume] in Serum or PlasmaOrdered By: John Dominguez on 02-07-2024 CO2 [Moles/Vol] 23.7 mmol/L Normal 21.0-31.0 [facility] Comment on above: Performed By: #### S CAN CBC, CMP, BNP, CK, HS TROP ####[place] [id number] [facility] Chloride [Moles/volume] in S juanpablo or PlasmaOrdered By: John Dominguez on 02-07-2024 Chloride [Moles/Vol] 100 mmol/L Normal 98-107 [facility] Comment on above: Performed By: #### S CAN CBC, CMP, BNP, CK, HS TROP ####[place] [id number] [facility] Comprehensive Metabolic Pane tim 02-07-2024 Albumin [Mass/Vol] 3.6 g/dL Normal 3.5-5.7 [facility] Comment on above: Performed By: #### S CAN CBC, CMP, BNP, CK, HS TROP ####[place] [id number] [facility] Creatinine Clr Calc Pharmacy 47.99 Normal [facility] Comment on above: Result Comment: PERF ORMED BY: [place] [address] PATHOLOGIST DENTIST ALEX CROWLEY M.D. Performed By: #### S CAN CBC, CMP, BNP, CK, HS TROP ####[place] [address] [place] [id number] [facility] GFR/1.73 sq M.predicted MDRD (S/P/Bld) [Vol rate/Area] mL/min/{1.73_m2} Normal [facility] Comment on above: Performed By: #### S CAN CBC, CMP, BNP, CK, HS TROP ####[place] [address] [place] [id number] [facility] Creatine kinase [Enzymatic a ctivity/volume] in Serum or PlasmaOrdered By: John Dominguez on 02-07-2024 CK [Catalytic activity/Vol] 54 U/L Normal 30-223 [facility] Comment on above: Performed By: #### S CAN CBC, CMP, BNP, CK, HS TROP ####[place] [id number] [facility] Creatinine [Mass/volume] in Serum or PlasmaOrdered By: John Dominguez on 02-07-2024 Creatinine [Mass/Vol] 1.12 mg/dL Normal 0.70-1.30 [facility] Comment on above: Performed By: #### S CAN CBC, CMP, BNP, CK, HS TROP ####[place] [id number] [facility] ECG 12 lead ECGon 02-07-2024 ECG 12 lead ECG [facility] Main [place] [address] [place] [address] Electrocardiograph Report Signed Patient: Cristal Gu MR#: [id number] : 1955 Acct:[id number] Age/Sex: 68 / M ADM Date: 02/07/24 Loc: ER Room: Type: [facility] ER Attending Dr: Ordering Provider: [...] John Dominguez MD 02/08/24 0020 Normal [facility] Erythrocyte distribution wid th [Ratio] by Automated countOrdered By: John Dominguez on 02-07-2024 Erythrocyte distribution width (RBC) [Ratio] 14.9 % High 12.0-14.8 [facility] Comment on above: Performed By: #### S CAN CBC, CMP, BNP, CK, HS TROP ####[facility] [id number] [place] [id number] [facility] Erythrocytes [#/volume] in B lood by Automated countOrdered By: John Dominguez on 02-07-2024 RBC (Bld) [#/Vol] 3.76 10*6/uL Low 3.90-5.60 [facility] Comment on above: Performed By: #### S CAN CBC, CMP, BNP, CK, HS TROP ####[facility] [id number] [place] [address] [facility] Glucose [Mass/volume] in Ser um or PlasmaOrdered By: John Dominguez on 02-07-2024 Glucose [Mass/Vol] 168 mg/dL High 70-100 [facility] Comment on above: ADA recommended refe rence rangeRandom Glucose Reference Range is dependent on time and content of last meal. Glucose of more than 200 mg/dL in a nonstressed, ambulatory subject supports the diagnosis of Diabetes Mellitus. Result Comment: [place] om Glucose Reference Range is dependent on time and content of last meal. Glucose of more than 200 mg/dL in a nonstressed, ambulatory subject supports the diagnosis of Diabetes Mellitus. ADA recommended reference range Performed By: #### S CAN CBC, CMP, BNP, CK, HS TROP ####[address] Hematocrit [Volume Fraction] of Blood by Automated countOrdered By: John Dominguez on 02-07-2024 Hematocrit (Bld) [Volume fraction] 35.7 % Low 38.8-50.0 [facility] Comment on above: Performed By: #### S CAN CBC, CMP, BNP, CK, HS TROP ####[address] Hemoglobin [Mass/volume] in BloodOrdered By: John Dominguez on 02-07-2024 Hemoglobin (Bld) [Mass/Vol] 12.1 g/dL Low 13.0-17.0 [facility] Comment on above: Performed By: #### S CAN CBC, CMP, BNP, CK, HS TROP ####[address] Leukocytes [#/volume] correc nani for nucleated erythrocytes in Blood by Automated counOrdered By: John Dominguez on 02-07-2024 WBC corrected for nucl RBC Auto (Bld) [#/Vol] 4.0 10*3/uL Low 4.1-10.5 [facility] Leukocytes [#/volume] in Blo od by Automated countOrdered By: John Dominguez on 02-07-2024 WBC (Bld) [#/Vol] 4.0 10*3/uL Low 4.1-10.5 [facility] Comment on above: Performed By: #### S CAN CBC, CMP, BNP, CK, HS TROP ####[address] Lymphocytes [#/volume] in Bl ood by Automated countOrdered By: John Doimnguez on 02-07-2024 Lymphocytes (Bld) [#/Vol] 0.6 10*3/uL Low 1.00-4.8 [facility] Comment on above: Performed By: #### S CAN CBC, CMP, BNP, CK, HS TROP ####[address] Lymphocytes/100 leukocytes i n Blood by Automated countOrdered By: John Dominguez on 02-07-2024 Lymphocytes/100 WBC (Bld) 14.3 % Normal . [facility] Comment on above: Performed By: #### S CAN CBC, CMP, BNP, CK, HS TROP ####[facility] [id number] MCH [Entitic mass] by Automa nani countOrdered By: John Dominguez on 02-07-2024 MCH (RBC) [Entitic mass] 32.1 pg Normal 27.5-35.2 [facility] Comment on above: Performed By: #### S CAN CBC, CMP, BNP, CK, HS TROP ####[place] [id number] MCHC Auto (RBC) [Mass/Vol]Or dered By: John Dominguez on 02-07-2024 MCHC (RBC) [Mass/Vol] 33.8 g/dL 32.5-35.6 [facility] MCV [Entitic volume] by Auto mated countOrdered By: John Dominguez on 02-07-2024 MCV (RBC) [Entitic vol] 94.9 fL Normal 83.5-101 [facility] Comment on above: Performed By: #### S CAN CBC, CMP, BNP, CK, HS TROP ####[place] [id number] Monocyte distribution width [Entitic volume] in Blood by AutomatedOrdered By: John Dominguez on 02-07-2024 Monocyte distribution width Auto (Bld) [Entitic vol] 19.12 % 0.00-20.00 [facility] Neutrophils [#/volume] in Bl ood by Automated countOrdered By: John Dominguez on 02-07-2024 Neutrophils (Bld) [#/Vol] 3.0 10*3/uL Normal 1.8-7.7 [facility] Comment on above: Performed By: #### S CAN CBC, CMP, BNP, CK, HS TROP ####[address] No Panel InformationOrdered By: John Dominguez on 02-07-2024 Estimated GFR (CKD-EPI) > 60.0 mL/Min [facility] Creatinine Clearance (Chem 47.99 [facility] Nucleated erythrocytes [Pres ence] in Blood by Automated countOrdered By: John Dominguez on 02-07-2024 Nucleated RBC Auto Ql (Bld) 0.1 /100{WBC} 0-0.5 [facility] Platelet adequacy [Presence] in Blood by Light microscopyOrdered By: John Dominguez on 02-07-2024 Platelets LM Ql (Bld) Normal Normal [facility] Platelet mean volume [Entiti c volume] in Blood by Automated countOrdered By: John Dominguez on 02-07-2024 Platelet mean volume (Bld) [Entitic vol] 10.5 fL High 6.6-10.1 [facility] Comment on above: Performed By: #### S CAN CBC, CMP, BNP, CK, HS TROP ####[facility] [id number] Platelet morphology finding [Identifier] in BloodOrdered By: John Dominguez on 02-07-2024 Platelet morphology finding Nom (Bld) Normal Normal [facility] Platelets Large [Presence] i n Blood by Light microscopyOrdered By: John Dominguez on 02-07-2024 Platelets Large LM Ql (Bld) Slight [facility] Platelets [#/volume] in Bloo d by Automated countOrdered By: John Dominguez on 02-07-2024 Platelets (Bld) [#/Vol] 187 10*3/uL Normal 150-450 [facility] Comment on above: Performed By: #### S CAN CBC, CMP, BNP, CK, HS TROP ####[facility] [id number] Polychromasia [Presence] in Blood by Light microscopyOrdered By: John Dominguez on 02-07-2024 Polychromasia LM Ql (Bld) Slight [facility] Potassium [Moles/volume] in Serum or PlasmaOrdered By: John Dominguez on 02-07-2024 Potassium [Moles/Vol] 3.8 mmol/L Normal 3.5-5.1 [facility] Comment on above: Performed By: #### S CAN CBC, CMP, BNP, CK, HS TROP ####[address] Protein [Mass/volume] in Ser um or PlasmaOrdered By: John Dominguez on 02-07-2024 Protein [Mass/Vol] 6.9 g/dL Normal 6.4-8.9 [facility] Comment on above: Performed By: #### S CAN CBC, CMP, BNP, CK, HS TROP ####[address] RBC morphologyOrdered By: Karmen Dominguez on 02-07-2024 RBC morphology finding Nom (Bld) Normal Normal Normal [facility] Comment on above: Performed By: #### S CAN CBC, CMP, BNP, CK, HS TROP ####[address] Scan and CBCon 02-07-2024 Large Platelets Slight Normal [facility] Comment on above: Result Comment: PERF ORMED BY: [facility] [address] [facility] [place] [address] PATHOLOGIST DENTIST ALEX CROWLEY M.D. Performed By: #### S CAN CBC, CMP, BNP, CK, HS TROP ####[address] Mean Corpuscular HGB Conc 33.8 g/dL Normal 32.5-35.6 [facility] Comment on above: Performed By: #### S CAN CBC, CMP, BNP, CK, HS TROP ####[address] Monocytes/100 WBC (Bld) 19.12 % Normal 0.00-20.00 [facility] Comment on above: Performed By: #### S CAN CBC, CMP, BNP, CK, HS TROP ####[address] NRBC% 0.1 /100{WBC} Normal 0-0.5 [facility] Comment on above: Performed By: #### S CAN CBC, CMP, BNP, CK, HS TROP ####[address] Platelet Estimate Normal Normal Normal [facility] Comment on above: Performed By: #### S CAN CBC, CMP, BNP, CK, HS TROP ####[address] Platelet Morphology Normal Normal Normal [facility] Comment on above: Performed By: #### S CAN CBC, CMP, BNP, CK, HS TROP ####[address] Polychromasia Slight Normal [facility] Comment on above: Performed By: #### S CAN CBC, CMP, BNP, CK, HS TROP ####[address] Serum globulin measurement b y calculation (mass/volume)Ordered By: John Dominguez on 02-07-2024 Globulin (S) [Mass/Vol] 3.3 g/dL Normal [facility] Comment on above: Performed By: #### S CAN CBC, CMP, BNP, CK, HS TROP ####[address] Serum or plasma albumin/glob ulin mass ratioOrdered By: oJhn Dominguez on 02-07-2024 Albumin/Globulin [Mass ratio] 1.1 {ratio} Normal [facility] Comment on above: Performed By: #### S CAN CBC, CMP, BNP, CK, HS TROP ####[address] Serum or plasma anion gap de terminationOrdered By: John Dominguez on 02-07-2024 Anion gap [Moles/Vol] 13.1 mmol/L Normal 6.0-15.0 [facility] Comment on above: Performed By: #### S CAN CBC, CMP, BNP, CK, HS TROP ####[address] Sodium [Moles/volume] in Ser um or PlasmaOrdered By: John Dominguez on 02-07-2024 Sodium [Moles/Vol] 133 mmol/L Low 136-145 [facility] Comment on above: Performed By: #### S CAN CBC, CMP, BNP, CK, HS TROP ####[address] [place] [address] [facility] Troponin I High Sensitivityo n 02-07-2024 Troponin I High Sensitivity 10.1 pg/mL Normal 0.0-20.0 [facility] Comment on above: Result Comment: PERF ORMED BY: [facility] [address] [place] [place] [id number] PATHOLOGIST DENTIST ALEX CROWLEY M.D. Performed By: #### S CAN CBC, CMP, BNP, CK, HS TROP ####[address] [place] [address] [facility] Troponin I.cardiac [Mass/vol ume] in Serum or Plasma by Detection limit <= 0.01 ng/Ordered By: John Dominguez on 02-07-2024 Troponin I.cardiac DL <= 0.01 ng/mL [Mass/Vol] 10.1 pg/mL 0.0-20.0 [facility] Urea nitrogen [Mass/volume] in Serum or PlasmaOrdered By: John Dominguez on 02-07-2024 Urea nitrogen [Mass/Vol] 17 mg/dL Normal 7-25 [facility] Comment on above: Performed By: #### S CAN CBC, CMP, BNP, CK, HS TROP ####[address] [place] [address] [facility]/Clini c Noteon 02-06-2024 Family [...] day(s), # 14 tab(s), Refills(s) 0, Pharmacy: [facility], 169.5, cm, 02/06/24 12:01:00 EDT, Height/Length Dosing, 52.9, kg, 02/06/24 12:01:00 EDT, Weight Dosing methylPREDNISolone, = 1 packet(s), Oral, As Directed, as directed on package labeling, X 6 day(s), # 21 tab(s), Refills(s) 0, Pharmacy: [facility], 169.5, cm, 02/06/24 12:01:00 EDT, Height/Length Dosing, 52.9, kg, 02/06/24 12:01:00 EDT, Weight Dosing 2. Former smoker (Z87.891: Personal history of nicotine dependence) continue not smoking Ordered: amoxicillin, 875 mg = 1 tab(s), Oral, BID, X 7 day(s), # 14 tab(s), Refills(s) 0, Pharmacy: [facility], 169.5, cm, 02/06/24 12:01:00 EDT, Height/Length Dosing, 52.9, kg, 02/06/24 12:01:00 EDT, Weight Dosing methylPREDNISolone, = 1 packet(s), Oral, As Directed, as directed on package labeling, X 6 day(s), # 21 tab(s), Refills(s) 0, Pharmacy: [facility], 169.5, cm, 02/06/24 12:01:00 EDT, Height/Length Dosing, 52.9, kg, 02/06/24 12:01:00 EDT, Weight Dosing 3. BMI less than 19,adult (Z68.1: Body mass index [BMI] 19.9 or less, adult) BMI education given Ordered: amoxicillin, 875 mg = 1 tab(s), Oral, BID, X 7 day(s), # 14 tab(s), Refills(s) 0, Pharmacy: [facility], 169.5, cm, 02/06/24 12:01:00 EDT, Height/Length Dosing, 52.9, kg, 02/06/24 12:01:00 EDT, Weight Dosing methylPREDNISolone, = 1 packet(s), Oral, As Directed, as directed on package labeling, X 6 day(s), # 21 tab(s), Refills(s) 0, Pharmacy: [facility], 169.5, cm, 02/06/24 12:01:00 EDT, Height/Length Dosing, 52.9, kg, 02/06/24 12:01:00 EDT, Weight Dosing Orders: triamcinolone topical, 1 duong, Topical, BID, 20 gram, Refill(s) 1, [facility], 169.5, cm, 10/15/23 11:53:00 EDT, Height/Length [...] (COVID-19) mRN (more content not included)... Normal [facility] Comment on above: Result Comment: Elec tronically Signed By: Enrique Austin\.br\Date and Time Signed: 02/06/24 12:32 EDT CBC W Auto Differential pane l (Bld)on 02-03-2024 Basophils (Bld) [#/Vol] 10*3/uL Normal <0.11 [facility] Comment on above: Order Comment: Speci men Type: BLOOD SPECIMENOrdering Facility: [facility] Address: [address] [place] [address] Performed By: #### 5 7021-8 ####[facility] LABCLIA [id number] [place] [address] Basophils/100 WBC (Bld) 0.3 % Normal [facility] Comment on above: Order Comment: Speci men Type: BLOOD SPECIMENOrdering Facility: [facility] Address: [address] [place] [address] Performed By: #### 5 7021-8 ####[facility] LABCLIA [id number] [place] [address] Differential cell count method Nom (Bld) Auto Normal [facility] Comment on above: Order Comment: Speci men Type: BLOOD SPECIMENOrdering Facility: [facility] Address: [address] [place] [address] Performed By: #### 5 7021-8 ####[facility] LABCLIA [id number] [place] [address] Eosinophils (Bld) [#/Vol] 0.10 10*3/uL Normal <0.46 [facility] Comment on above: Order Comment: Speci men Type: BLOOD SPECIMENOrdering Facility: [facility] Address: [address] [place] [address] Performed By: #### 5 7021-8 ####[facility] LABCLIA [id number] [place] [address] Eosinophils/100 WBC (Bld) 1.7 % Normal [facility] Comment on above: Order Comment: Speci men Type: BLOOD SPECIMENOrdering Facility: [facility] Address: [address] [place] [address] Performed By: #### 5 7021-8 ####[facility] LABCLIA [id number] [place] [address] Erythrocyte distribution width (RBC) [Ratio] 13.7 % Normal 11.5-15.0 [facility] Comment on above: Order Comment: Speci men Type: BLOOD SPECIMENOrdering Facility: [facility] Address: [address] [place] [address] Performed By: #### 5 7021-8 ####[facility] LABCLIA [id number] [place] [address] Hematocrit (Bld) [Volume fraction] 38.1 % Low 39.0-51.0 [facility] Comment on above: Order Comment: Speci men Type: BLOOD SPECIMENOrdering Facility: [facility] Address: [address] [place] [address] Performed By: #### 5 7021-8 ####[facility] LABCLIA [id number] [place] [address] Hemoglobin (Bld) [Mass/Vol] 12.7 g/dL Low 13.0-17.0 [facility] Comment on above: Order Comment: Speci men Type: BLOOD SPECIMENOrdering Facility: [facility] Address: [address] [place] [address] Performed By: #### 5 7021-8 ####[facility] LABIA [id number] [place] [address] Immature granulocytes (Bld) [#/Vol] 0.04 10*3/uL Normal <0.10 [facility] Comment on above: Order Comment: Speci men Type: BLOOD SPECIMENOrdering Facility: [facility] Address: [address] [place] [address] Performed By: #### 5 7021-8 ####[facility] LABIA [id number] [place] [address] Immature granulocytes/100 WBC (Bld) 0.7 % Normal [facility] Comment on above: Order Comment: Speci men Type: BLOOD SPECIMENOrdering Facility: [facility] Address: [address] [place] [address] Performed By: #### 5 7021-8 ####[facility] LABIA [id number] [place] [address] Lymphocytes (Bld) [#/Vol] 1.05 10*3/uL Normal 1.00-4.00 [facility] Comment on above: Order Comment: Speci men Type: BLOOD SPECIMENOrdering Facility: [facility] Address: [address] [place] [address] Performed By: #### 5 7021-8 ####[facility] LABCLIA [id number] [place] [address] Lymphocytes/100 WBC (Bld) 17.6 % Normal [facility] Comment on above: Order Comment: Speci men Type: BLOOD SPECIMENOrdering Facility: [facility] Address: [address] [place] [address] Performed By: #### 5 7021-8 ####[facility] LABCLIA [id number] [place] [address] MCH (RBC) [Entitic mass] 31.7 pg Normal 26.0-34.0 [facility] Comment on above: Order Comment: Speci men Type: BLOOD SPECIMENOrdering Facility: [facility] Address: [address] [place] [address] Performed By: #### 5 7021-8 ####[facility] LABIA [id number] [place] [address] MCHC (RBC) [Mass/Vol] 33.3 g/dL Normal 30.5-36.0 [facility] Comment on above: Order Comment: Speci men Type: BLOOD SPECIMENOrdering Facility: [facility] Address: [address] [place] [address] Performed By: #### 5 7021-8 ####[facility] LABCLIA [id number] [place] [address] MCV (RBC) [Entitic vol] 95.0 fL Normal 80.0-100.0 [facility] Comment on above: Order Comment: Speci men Type: BLOOD SPECIMENOrdering Facility: [facility] Address: [address] [place] [address] Performed By: #### 5 7021-8 ####[facility] LABIA [id number] [place] [address] Monocytes (Bld) [#/Vol] 1.00 10*3/uL High <0.87 [facility] Comment on above: Order Comment: Speci men Type: BLOOD SPECIMENOrdering Facility: [facility] Address: [address] [place] [address] Performed By: #### 5 7021-8 ####[facility] LABCLIA [id number] [place] [address] Monocytes/100 WBC (Bld) 16.8 % Normal [facility] Comment on above: Order Comment: Speci men Type: BLOOD SPECIMENOrdering Facility: [facility] Address: [address] [place] [address] Performed By: #### 5 7021-8 ####[facility] LABCLIA [id number] [place] [address] Neutrophils (Bld) [#/Vol] 3.75 10*3/uL Normal 1.45-7.50 [facility] Comment on above: Order Comment: Speci men Type: BLOOD SPECIMENOrdering Facility: [facility] Address: [address] [place] [address] Performed By: #### 5 7021-8 ####[facility] LABCLIA [id number] [place] [address] Neutrophils/100 WBC (Bld) 62.9 % Normal [facility] Comment on above: Order Comment: Speci men Type: BLOOD SPECIMENOrdering Facility: [facility] Address: [address] [place] [address] Performed By: #### 5 7021-8 ####[facility] LABCLIA [id number] [place] [address] Nucleated RBC (Bld) [#/Vol] 10*3/uL Normal <0.01 [facility] Comment on above: Order Comment: Speci men Type: BLOOD SPECIMENOrdering Facility: [facility] Address: [address] [place] [address] Performed By: #### 5 7021-8 ####[facility] LABCLIA [id number] [place] [address] Nucleated RBC/100 WBC (Bld) [Ratio] 0.0 /100 WBC Normal [facility] Comment on above: Order Comment: Speci men Type: BLOOD SPECIMENOrdering Facility: [facility] Address: [address] [place] [address] Performed By: #### 5 7021-8 ####[facility] LABCLIA [id number] [place] [address] Platelet mean volume (Bld) [Entitic vol] 11.5 fL Normal 9.0-12.7 [facility] Comment on above: Order Comment: Speci men Type: BLOOD SPECIMENOrdering Facility: [facility] Address: [address] [place] [address] Performed By: #### 5 7021-8 ####[facility] LABCLIA [id number] [place] [address] Platelets (Bld) [#/Vol] 201 10*3/uL Normal 150-400 [facility] Comment on above: Order Comment: Speci men Type: BLOOD SPECIMENOrdering Facility: [facility] Address: [address] [place] [address] Performed By: #### 5 7021-8 ####[facility] LABCLIA [id number] [place] [address] RBC (Bld) [#/Vol] 4.01 10*6/uL Low 4.20-6.00 [facility] Comment on above: Order Comment: Speci men Type: BLOOD SPECIMENOrdering Facility: [facility] Address: [address] [place] [address] Performed By: #### 5 7021-8 ####[facility] LABCLIA [id number] [place] [address] WBC (Bld) [#/Vol] 5.96 10*3/uL Normal 3.70-11.00 [facility] Comment on above: Order Comment: Speci men Type: BLOOD SPECIMENOrdering Facility: [facility] Address: [address] [place] [address] Performed By: #### 5 7021-8 ####[facility] LABCLIA [id number] [place] [address] CNOVSPon 02-03-2024 CNOVSP Normal [facility] CNPNon 02-03-2024 CNPN Normal [facility] Comprehensive metabolic 2000 panelon 02-03-2024 Albumin [Mass/Vol] 3.8 g/dL Low 3.9-4.9 [facility] Comment on above: Order Comment: Speci men Type: BLOOD SPECIMENOrdering Facility: [facility] Address: [address] [place] [address] Performed By: #### 2 4323-8 ####[facility] LABCLIA [id number] [place] [address] ALP [Catalytic activity/Vol] 47 U/L Normal 38-113 [facility] Comment on above: Order Comment: Speci men Type: BLOOD SPECIMENOrdering Facility: [facility] Address: [address] [place] [address] Performed By: #### 2 4323-8 ####[facility] LABCLIA [id number] [place] [address] ALT [Catalytic activity/Vol] 12 U/L Normal 10-54 [facility] Comment on above: Order Comment: Speci men Type: BLOOD SPECIMENOrdering Facility: [facility] Address: [address] [place] [address] Performed By: #### 2 4323-8 ####[facility] LABCLIA [id number] [place] [address] Anion gap [Moles/Vol] 13 mmol/L Normal 8-15 [facility] Comment on above: Order Comment: Speci men Type: BLOOD SPECIMENOrdering Facility: [facility] Address: [address] [place], [place] [address] Performed By: #### 2 4323-8 ####[facility] LABCLIA [id number] [place] [address] AST [Catalytic activity/Vol] 22 U/L Normal 14-40 [facility] Comment on above: Order Comment: Speci men Type: BLOOD SPECIMENOrdering Facility: [facility] Address: [address] [place] [address] Performed By: #### 2 4323-8 ####[facility] LABCLIA [id number] [place] [address] Bilirubin [Mass/Vol] 0.8 mg/dL Normal 0.2-1.3 [facility] Comment on above: Order Comment: Speci men Type: BLOOD SPECIMENOrdering Facility: [facility] Address: [address] [place] [address] Performed By: #### 2 4323-8 ####[facility] LABCLIA [id number] [place] [address] Calcium [Mass/Vol] 10.5 mg/dL High 8.5-10.2 [facility] Comment on above: Order Comment: Speci men Type: BLOOD SPECIMENOrdering Facility: [facility] Address: [address] [place] [address] Performed By: #### 2 4323-8 ####[facility] LABCLIA [id number] [place] [address] Chloride [Moles/Vol] 101 mmol/L Normal 98-107 [facility] Comment on above: Order Comment: Speci men Type: BLOOD SPECIMENOrdering Facility: [facility] Address: [address] [place] [address] Performed By: #### 2 4323-8 ####[facility] LABCLIA [id number] [place] [address] CO2 [Moles/Vol] 24 mmol/L Normal 22-30 [facility] Comment on above: Order Comment: Speci men Type: BLOOD SPECIMENOrdering Facility: [facility] Address: [address] [place] [address] Performed By: #### 2 4323-8 ####[facility] LABCLIA [id number] [place] [address] Creatinine [Mass/Vol] 1.35 mg/dL High 0.73-1.22 [facility] Comment on above: Order Comment: Speci men Type: BLOOD SPECIMENOrdering Facility: [facility] Address: [address] [place] [address] Performed By: #### 2 4323-8 ####[facility] LABCLIA [id number] [place] [address] Creatinine and Glomerular filtration rate.predicted panel (S/P/Bld) 58 mL/min/1.73m??? Low >=60 [facility] Comment on above: Order Comment: Speci men Type: BLOOD SPECIMENOrdering Facility: [facility] Address: [address] [place] [address] Result Comment: Landy mated Glomerular Filtration Rate [...] actual GFR. Performed By: #### 2 4323-8 ####[facility] LABCLIA [id number] [place] [address] Glucose [Mass/Vol] 98 mg/dL Normal 74-99 [facility] Comment on above: Order Comment: Speci men Type: BLOOD SPECIMENOrdering Facility: [facility] Address: [address] [place] [address] Result Comment: The [place] [employer] (ADA) provides guidance for cutoff [...] Standards of Medical Care in Diabetes 2016, [place] [employer]. Diabetes Care. 2016.39(Suppl 1). Performed By: #### 2 4323-8 ####[facility] LABCLIA [id number] [place] [address] Potassium [Moles/Vol] 4.7 mmol/L Normal 3.7-5.1 [facility] Comment on above: Order Comment: Speci men Type: BLOOD SPECIMENOrdering Facility: [facility] Address: [address] [place] [address] Performed By: #### 2 4323-8 ####[facility] LABCLIA [id number] [place] [address] Protein [Mass/Vol] 7.2 g/dL Normal 6.3-8.0 [facility] Comment on above: Order Comment: Speci men Type: BLOOD SPECIMENOrdering Facility: [facility] Address: [address] [place] [address] Performed By: #### 2 4323-8 ####[facility] LABCLIA [id number] [place] [address] Sodium [Moles/Vol] 138 mmol/L Normal 136-144 [facility] Comment on above: Order Comment: Speci men Type: BLOOD SPECIMENOrdering Facility: [facility] Address: [address] [place] [address] Performed By: #### 2 4323-8 ####[facility] LABCLIA [id number] [place] [address] Urea nitrogen [Mass/Vol] 15 mg/dL Normal 9-24 [facility] Comment on above: Order Comment: Speci men Type: BLOOD SPECIMENOrdering Facility: [facility] Address: [address] [place] [address] Performed By: #### 2 4323-8 ####[facility] LABCLIA [id number] [place] [address] CNPNon 01-27-2024 CNPN Normal [facility] CNPNon 01-13-2024 CNPN Normal [facility] Family Medicine Office/Clini c Noteon 01-12-2024 Family [...] anxiety, # 90 tab(s), Refills(s) 0, Pharmacy: [facility], 169.5, cm, 01/12/24 12:03:00 EDT, Height/Length Dosing, 54.7, kg, 01/12/24 12:03:00 EDT, Weight Dosing alprazolam, 0.25 mg = 1 tab(s), Oral, TID, PRN for anxiety, # 90 tab(s), Refills(s) 0, Pharmacy: [facility], 169.5, cm, 10/08/23 9:02:00 EDT, Height/Length [...] Signed By: Enrique Austin\.br\Date and Time Signed: 01/12/24 12:31 EDT CNPNon 01-09-2024 CNPN Normal [facility] CNPNon 12-26-2023 CNPN Normal [facility] CBC W Auto Differential pane l (Bld)on 12-23-2023 Basophils (Bld) [#/Vol] [facility] Basophils/100 WBC (Bld) 0.1 % [facility] Differential cell count method Nom (Bld) Auto [facility] Eosinophils (Bld) [#/Vol] [facility] Eosinophils/100 WBC (Bld) 0.1 % [facility] Erythrocyte distribution width (RBC) [Ratio] 15.3 % High 11.5 - 15.0 % [facility] Hematocrit (Bld) [Volume fraction] 31.1 % Low 39.0 - 51.0 % [facility] Hemoglobin (Bld) [Mass/Vol] 10.0 g/dL Low 13.0 - 17.0 g/dL [facility] Immature granulocytes (Bld) [#/Vol] 0.07 10*3/uL [facility] Immature granulocytes/100 WBC (Bld) 0.9 % [facility] Interpretation and review of laboratory results Abnormal [facility] Lymphocytes (Bld) [#/Vol] 0.38 10*3/uL Low [facility] Lymphocytes/100 WBC (Bld) 4.6 % [facility] MCH (RBC) [Entitic mass] 31.0 pg 26.0 - 34.0 pg [facility] MCHC (RBC) [Mass/Vol] 32.2 g/dL 30.5 - 36.0 g/dL [facility] MCV (RBC) [Entitic vol] 96.3 fL 80.0 - 100.0 fL [facility] Monocytes (Bld) [#/Vol] 0.34 10*3/uL [facility] Monocytes/100 WBC (Bld) 4.1 % [facility] Neutrophils (Bld) [#/Vol] 7.39 10*3/uL [facility] Neutrophils/100 WBC (Bld) 90.2 % [facility] Nucleated RBC (Bld) [#/Vol] NINF [facility] Nucleated RBC/100 WBC (Bld) [Ratio] 0.0 % /100 WBC [facility] Platelet mean volume (Bld) [Entitic vol] 10.9 fL 9.0 - 12.7 fL [facility] Platelets (Bld) [#/Vol] 141 10*3/uL Low [facility] RBC (Bld) [#/Vol] 3.23 10*6/uL Low 4.20 - 6.00 m/uL [facility] WBC (Bld) [#/Vol] 8.20 10*3/uL [facility] Basophils (Bld) [#/Vol] 10*3/uL Normal <0.11 [facility] Comment on above: Order Comment: Speci men Type: BLOOD SPECIMENOrdering Facility: [facility] Address: [address] [place] [address] Performed By: #### 5 7021-8 ####[facility] LABCLIA [id number] [place] [address] Basophils/100 WBC (Bld) 0.1 % Normal [facility] Comment on above: Order Comment: Speci men Type: BLOOD SPECIMENOrdering Facility: [facility] Address: [address] [place] [address] Performed By: #### 5 7021-8 ####[facility] LABCLIA [id number] [place] [address] Differential cell count method Nom (Bld) Auto Normal [facility] Comment on above: Order Comment: Speci men Type: BLOOD SPECIMENOrdering Facility: [facility] Address: [address] [place] [address] Performed By: #### 5 7021-8 ####[facility] LABCLIA [id number] [place] [address] Eosinophils (Bld) [#/Vol] 10*3/uL Normal <0.46 [facility] Comment on above: Order Comment: Speci men Type: BLOOD SPECIMENOrdering Facility: [facility] Address: [address] [place] [address] Performed By: #### 5 7021-8 ####[facility] LABCLIA [id number] [place] [address] Eosinophils/100 WBC (Bld) 0.1 % Normal [facility] Comment on above: Order Comment: Speci men Type: BLOOD SPECIMENOrdering Facility: [facility] Address: [address] [place] [address] Performed By: #### 5 7021-8 ####[facility] LABCLIA [id number] [place] [address] Erythrocyte distribution width (RBC) [Ratio] 15.3 % High 11.5-15.0 [facility] Comment on above: Order Comment: Speci men Type: BLOOD SPECIMENOrdering Facility: [facility] Address: [address] [place] [address] Performed By: #### 5 7021-8 ####[facility] LABCLIA [id number] [place] [address] Hematocrit (Bld) [Volume fraction] 31.1 % Low 39.0-51.0 [facility] Comment on above: Order Comment: Speci men Type: BLOOD SPECIMENOrdering Facility: [facility] Address: [address] [place] [address] Performed By: #### 5 7021-8 ####[facility] LABCLIA [id number] [place] [address] Hemoglobin (Bld) [Mass/Vol] 10.0 g/dL Low 13.0-17.0 [facility] Comment on above: Order Comment: Speci men Type: BLOOD SPECIMENOrdering Facility: [facility] Address: [address] [place] [address] Performed By: #### 5 7021-8 ####[facility] LABCLIA [id number] [place] [address] Immature granulocytes (Bld) [#/Vol] 0.07 10*3/uL Normal <0.10 [facility] Comment on above: Order Comment: Speci men Type: BLOOD SPECIMENOrdering Facility: [facility] Address: [address] [place] [address] Performed By: #### 5 7021-8 ####[facility] LABCLIA [id number] [place] [address] Immature granulocytes/100 WBC (Bld) 0.9 % Normal [facility] Comment on above: Order Comment: Speci men Type: BLOOD SPECIMENOrdering Facility: [facility] Address: [address] [place] [address] Performed By: #### 5 7021-8 ####[facility] LABCLIA [id number] [place] [address] Lymphocytes (Bld) [#/Vol] 0.38 10*3/uL Low 1.00-4.00 [facility] Comment on above: Order Comment: Speci men Type: BLOOD SPECIMENOrdering Facility: [facility] Address: [address] [place] [address] Performed By: #### 5 7021-8 ####[facility] LABCLIA [id number] [place] [address] Lymphocytes/100 WBC (Bld) 4.6 % Normal [facility] Comment on above: Order Comment: Speci men Type: BLOOD SPECIMENOrdering Facility: [facility] Address: [address] [place] [address] Performed By: #### 5 7021-8 ####[facility] LABCLIA [id number] [place] [address] MCH (RBC) [Entitic mass] 31.0 pg Normal 26.0-34.0 [facility] Comment on above: Order Comment: Speci men Type: BLOOD SPECIMENOrdering Facility: [facility] Address: [address] [place] [address] Performed By: #### 5 7021-8 ####[facility] LABIA [id number] [place] [address] MCHC (RBC) [Mass/Vol] 32.2 g/dL Normal 30.5-36.0 [facility] Comment on above: Order Comment: Speci men Type: BLOOD SPECIMENOrdering Facility: [facility] Address: [address] [place] [address] Performed By: #### 5 7021-8 ####[facility] LABIA [id number] [place] [address] MCV (RBC) [Entitic vol] 96.3 fL Normal 80.0-100.0 [facility] Comment on above: Order Comment: Speci men Type: BLOOD SPECIMENOrdering Facility: [facility] Address: [address] [place] [address] Performed By: #### 5 7021-8 ####[facility] LABIA [id number] [place] [address] Monocytes (Bld) [#/Vol] 0.34 10*3/uL Normal <0.87 [facility] Comment on above: Order Comment: Speci men Type: BLOOD SPECIMENOrdering Facility: [facility] Address: [address] [place] [address] Performed By: #### 5 7021-8 ####[facility] LABIA [id number] [place] [address] Monocytes/100 WBC (Bld) 4.1 % Normal [facility] Comment on above: Order Comment: Speci men Type: BLOOD SPECIMENOrdering Facility: [facility] Address: [address] [place] [address] Performed By: #### 5 7021-8 ####[facility] LABCLIA [id number] [place] [address] Neutrophils (Bld) [#/Vol] 7.39 10*3/uL Normal 1.45-7.50 [facility] Comment on above: Order Comment: Speci men Type: BLOOD SPECIMENOrdering Facility: [facility] Address: [address] [place] [address] Performed By: #### 5 7021-8 ####[facility] LABCLIA [id number] [place] [address] Neutrophils/100 WBC (Bld) 90.2 % Normal [facility] Comment on above: Order Comment: Speci men Type: BLOOD SPECIMENOrdering Facility: [facility] Address: [address] [place] [address] Performed By: #### 5 7021-8 ####[facility] LABCLIA [id number] [place] [address] Nucleated RBC (Bld) [#/Vol] 10*3/uL Normal <0.01 [facility] Comment on above: Order Comment: Speci men Type: BLOOD SPECIMENOrdering Facility: [facility] Address: [address] [place] [address] Performed By: #### 5 7021-8 ####[facility] LABIA [id number] [place] [address] Nucleated RBC/100 WBC (Bld) [Ratio] 0.0 /100 WBC Normal [facility] Comment on above: Order Comment: Speci men Type: BLOOD SPECIMENOrdering Facility: [facility] Address: [address] [place] [address] Performed By: #### 5 7021-8 ####[facility] LABIA [id number] [place] [address] Platelet mean volume (Bld) [Entitic vol] 10.9 fL Normal 9.0-12.7 [facility] Comment on above: Order Comment: Speci men Type: BLOOD SPECIMENOrdering Facility: [facility] Address: [address] [place] [address] Performed By: #### 5 7021-8 ####[facility] LABCLIA [id number] [place] [address] Platelets (Bld) [#/Vol] 141 10*3/uL Low 150-400 [facility] Comment on above: Order Comment: Speci men Type: BLOOD SPECIMENOrdering Facility: [facility] Address: [address] [place] [address] Performed By: #### 5 7021-8 ####[facility] LABIA [id number] [place] [address] RBC (Bld) [#/Vol] 3.23 10*6/uL Low 4.20-6.00 [facility] Comment on above: Order Comment: Speci men Type: BLOOD SPECIMENOrdering Facility: [facility] Address: [address] [place] [address] Performed By: #### 5 7021-8 ####[facility] LABIA [id number] [place] [address] WBC (Bld) [#/Vol] 8.20 10*3/uL Normal 3.70-11.00 [facility] Comment on above: Order Comment: Speci men Type: BLOOD SPECIMENOrdering Facility: [facility] Address: [address] [place] [address] Performed By: #### 5 7021-8 ####[facility] LABIA [id number] [place] [address] CNOVSPon 12-23-2023 CNOVSP Normal [facility] metabolic 2000 panelOrdered By: [place] Viramontes on 12-23-2023 Albumin [Mass/Vol] 3.8 g/dL Low 3.9 - 4.9 g/dL [facility] ALP [Catalytic activity/Vol] 38 U/L 38 - 113 U/L [facility] ALT [Catalytic activity/Vol] 14 U/L 10 - 54 U/L [facility] Anion gap [Moles/Vol] 8 mmol/L 8 - 15 mmol/L [facility] AST [Catalytic activity/Vol] 15 U/L 14 - 40 U/L [facility] Bilirubin [Mass/Vol] 0.6 mg/dL 0.2 - 1.3 mg/dL [facility] Calcium [Mass/Vol] 9.7 mg/dL 8.5 - 10.2 mg/dL [facility] Chloride [Moles/Vol] 101 mmol/L 98 - 107 mmol/L [facility] CO2 [Moles/Vol] 26 mmol/L 22 - 30 mmol/L [facility] Creatinine [Mass/Vol] 1.19 mg/dL 0.73 - 1.22 mg/dL [facility] GFR/1.73 sq M.predicted among non-blacks MDRD (S/P/Bld) [Vol rate/Area] 67 mL/min/{1.73_m2} - PINF [facility] Comment on above: Estimated Glomerular Filtration [...] 121 mg/dL High 74 - 99 mg/dL [facility] Comment on above: The [place] Di[employer] Association (ADA) provides guidance for [...] Standards of Medical Care in Diabetes 2016, [place] [employer]. Diabetes Care. 2016.39(Suppl 1). Interpretation and review of laboratory results Abnormal [facility] Potassium [Moles/Vol] 3.9 mmol/L 3.7 - 5.1 mmol/L [facility] Protein [Mass/Vol] 6.8 g/dL 6.3 - 8.0 g/dL [facility] Sodium [Moles/Vol] 135 mmol/L Low 136 - 144 mmol/L [facility] Urea nitrogen [Mass/Vol] 41 mg/dL High 9 - 24 mg/dL [facility] Comprehensive metabolic 2000 panelon 12-23-2023 Albumin [Mass/Vol] 3.8 g/dL Low 3.9-4.9 [facility] Comment on above: Order Comment: Speci men Type: BLOOD SPECIMENOrdering Facility: [facility] Address: [address] [place] [address] Performed By: #### 2 4323-8 ####[facility] LABCLIA [id number] [place] [address] ALP [Catalytic activity/Vol] 38 U/L Normal 38-113 [facility] Comment on above: Order Comment: Speci men Type: BLOOD SPECIMENOrdering Facility: [facility] Address: [address] [place] [address] Performed By: #### 2 4323-8 ####[facility] LABCLIA [id number] [place] [address] ALT [Catalytic activity/Vol] 14 U/L Normal 10-54 [facility] Comment on above: Order Comment: Speci men Type: BLOOD SPECIMENOrdering Facility: [facility] Address: [address] [place] [address] Performed By: #### 2 4323-8 ####[facility] LABCLIA [id number] [place] [address] Anion gap [Moles/Vol] 8 mmol/L Normal 8-15 [facility] Comment on above: Order Comment: Speci men Type: BLOOD SPECIMENOrdering Facility: [facility] Address: [address] [place] [address] Performed By: #### 2 4323-8 ####[facility] LABCLIA [id number] [place] [address] AST [Catalytic activity/Vol] 15 U/L Normal 14-40 [facility] Comment on above: Order Comment: Speci men Type: BLOOD SPECIMENOrdering Facility: [facility] Address: [address] [place] [address] Performed By: #### 2 4323-8 ####[facility] LABCLIA [id number] [place] [address] Bilirubin [Mass/Vol] 0.6 mg/dL Normal 0.2-1.3 [facility] Comment on above: Order Comment: Speci men Type: BLOOD SPECIMENOrdering Facility: [facility] Address: [address] [place] [address] Performed By: #### 2 4323-8 ####[facility] LABCLIA [id number] [place] [address] Calcium [Mass/Vol] 9.7 mg/dL Normal 8.5-10.2 [facility] Comment on above: Order Comment: Speci men Type: BLOOD SPECIMENOrdering Facility: [facility] Address: [address] [place] [address] Performed By: #### 2 4323-8 ####[facility] LABCLIA [id number] [place] [address] Chloride [Moles/Vol] 101 mmol/L Normal 98-107 [facility] Comment on above: Order Comment: Speci men Type: BLOOD SPECIMENOrdering Facility: [facility] Address: [address] [place] [address] Performed By: #### 2 4323-8 ####[facility] LABCLIA [id number] [place] [address] CO2 [Moles/Vol] 26 mmol/L Normal 22-30 [facility] Comment on above: Order Comment: Speci men Type: BLOOD SPECIMENOrdering Facility: [facility] Address: [address] [place] [address] Performed By: #### 2 4323-8 ####[facility] LABCLIA [id number] [place] [address] Creatinine [Mass/Vol] 1.19 mg/dL Normal 0.73-1.22 [facility] Comment on above: Order Comment: Speci men Type: BLOOD SPECIMENOrdering Facility: [facility] Address: [address] [place] [address] Performed By: #### 2 4323-8 ####[facility] LABCLIA [id number] [place] [address] Creatinine and Glomerular filtration rate.predicted panel (S/P/Bld) 67 mL/min/1.73m??? Normal >=60 [facility] Comment on above: Order Comment: Speci men Type: BLOOD SPECIMENOrdering Facility: [facility] Address: [address] [place] [address] Result Comment: Landy mated Glomerular Filtration Rate [...] actual GFR. Performed By: #### 2 4323-8 ####[facility] LABCLIA [id number] [place] [address] Glucose [Mass/Vol] 121 mg/dL High 74-99 [facility] Comment on above: Order Comment: Josei shalom Type: BLOOD SPECIMENOrdering Facility: [facility] Address: [address] [place] [address] Result Comment: The [place] Diabetes Association (ADA) provides guidance for cutoff [...] Standards of Medical Care in Diabetes 2016, [place] [employer]. Diabetes Care. 2016.39(Suppl 1). Performed By: #### 2 4323-8 ####[facility] LABCLIA [id number] [place] [address] Potassium [Moles/Vol] 3.9 mmol/L Normal 3.7-5.1 [facility] Comment on above: Order Comment: Speci men Type: BLOOD SPECIMENOrdering Facility: [facility] Address: [address] [place] [address] Performed By: #### 2 4323-8 ####[facility] LABCLIA [id number] [place] [address] Protein [Mass/Vol] 6.8 g/dL Normal 6.3-8.0 [facility] Comment on above: Order Comment: Speci men Type: BLOOD SPECIMENOrdering Facility: [facility] Address: [address] [place] [address] Performed By: #### 2 4323-8 ####[facility] LABCLIA [id number] [place] [address] Sodium [Moles/Vol] 135 mmol/L Low 136-144 [facility] Comment on above: Order Comment: Speci men Type: BLOOD SPECIMENOrdering Facility: [facility] Address: [address] [place] [address] Performed By: #### 2 4323-8 ####[facility] LABCLIA [id number] [place] [address] Urea nitrogen [Mass/Vol] 41 mg/dL High 9-24 [facility] Comment on above: Order Comment: Speci men Type: BLOOD SPECIMENOrdering Facility: [facility] Address: [address] [place] [address] Performed By: #### 2 4323-8 ####[facility] LABCLIA [id number] [place] [address] CNOVon 12-22-2023 CNOV Normal [facility] CNOVon 12-16-2023 CNOV Normal [facility] CNPNon 12-16-2023 CNPN Normal [facility] CNOVon 12-10-2023 CNOV Normal [facility] CNOVon 12-03-2023 CNOV Normal [facility] CNPNon 12-03-2023 CNPN Normal [facility] CNOVon 12-02-2023 CNOV Normal [facility] CNOVSPon 12-02-2023 CNOVSP Normal [facility] PET+CT Guidance for localiza tion of tumor [...] any questions regarding this interpretation, please call [phone]. If you are unable to reach us at the number above, please feel free to contact [facility] eRadiology at [phone]. DIVISION OF RADIOLOGY * * *Final Report* [...] * Radiopharmaceutical Dose: 6.6 mCi * Radiopharmaceutical: [id number] se (FDG) COMPARISON: PET/CT 09/15/2023 CORRELATION: CT chest 10/21/2023 RESULT: REFERENCES: SUV reference values: * Blood pool (descending aorta) activity: SUVmax 2.3 * Background liver activity: SUVmax 3.2; SUVmean 2. Tile Finisher (topogram) images: No additional findings. Notes and [...] tonsillar/oropharyng eal region (Max SUV 12.5, image 3/21) raising suspicion for focal lesion or infection/inflammati on. ENT evaluation recommended. Thyroid: No abnormal uptake. CHEST: Lungs & Airways: Surgical changes in the left upper lung. Interval increase in size and activity associated with left lower lobe lung nodule measuring 1.3 x 2 cm (max SUV 25.1, image 3/81 previously smaller measuring about 0.9 x 1.1 cm, max SUV 8). Additional hypermetabolic opacities/nodules stable to increased from prior for example an anteromedial right lung opacity measures 1 x 1.6 cm, (max SUV 5, image 3 previously measured 0.6 x 1.2 cm, max SUV 0.9). Stable Nodule in the right lower lobe adjacent the fissure measures 1.1 x 1.2 cm (max SUV 2.5, image 3/ previously max SUV 2.5). Few additional scattered subcentimeter nodules without significant activity. New mildly hypermetabolic opacities in the right lower lung (max SUV 4.2 posterior medial right lower lung, max SUV 3.8 posterior right lung) possibly inflammatory. Pleura & Pericardium: No abnormal uptake. Cardiovascular: No abnormal uptake. Mediastinum & Lymph Nodes: Interval increase in the right hilar uptake (max SUV 6.6, image 3 previously max SUV 4.4). Persistent Hypermetabolic left subpectoral mass measures 2.4 x 3.3 cm (max SUV 5.5, image 360 previously 6.1). Activity in the right axilla [...] is likely inflammatory. DIVISION OF RADIOLOGY Provider, [facility] - 11/28/2023 * * *Final Report* * [...] * Radiopharmaceutical Dose: 6.6 mCi * Radiopharmaceutical: [id number] se (FDG) COMPARISON: PET/CT 09/15/2023 CORRELATION: CT chest 10/21/2023 RESULT: REFERENCES: SUV reference values: * Blood pool (descending aorta) activity: SUVmax 2.3 * Background liver activity: SUVmax 3.2; SUVmean 2. Tile Finisher (topogram) images: No additional findings. Notes and [...] tonsillar/oropharyng eal region (Max SUV 12.5, image 3/) raising suspicion for focal lesion or infection/inflammati on. ENT evaluation recommended. Thyroid: No abnormal uptake. CHEST: Lungs & Airways: Surgical changes in the left upper lung. Interval increase in size and activity associated with left lower lobe lung nodule measuring 1.3 x 2 cm (max SUV 25.1, image 3/ previously smaller measuring about 0.9 x 1.1 cm, max SUV 8). Additional hypermetabolic opacities/nodules stable to increased from prior for example an anteromedial right lung opacity measures 1 x 1.6 cm, (max SUV 5, image 3/ previously measured 0.6 x 1.2 cm, max SUV 0.9). Stable Nodule in the right lower lobe adjacent the fissure measures 1.1 x 1.2 cm (max SUV 2.5, image 3/ previously max SUV 2.5). Few additional scattered subcentimeter nodules without significant activity. New mildly hypermetabolic opacities in the right lower lung (max SUV 4.2 posterior medial right lower lung, max SUV 3.8 posterior right lung) possibly inflammatory. Pleura & Pericardium: No abnormal uptake. Cardiovascular: No abnormal uptake. Mediastinum & Lymph Nodes: Interval increase in the right hilar uptake (max SUV 6.6, image 3 previously max SUV 4.4). 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 Activity in the right axilla [...] neoplastic process. MUSCULOSKELETAL (more content not included)... [facility] PET+CT Guidance for localiza tion of tumor of Skull base to mid-thigh-- W 18F-FDG IVOrdered By: [facility] Provider on 11-28-2023 [facility] THYROID STIMULATING HORMONEo n 11-26-2023 TSH Qn 3.890 m[IU]/L [facility] TSH Qnon 11-26-2023 Interpretation and review of laboratory results Normal [facility] CBC W Auto Differential pane l (Bld)on 11-25-2023 Basophils (Bld) [#/Vol] 0.03 10*3/uL [facility] Basophils/100 WBC (Bld) 0.4 % [facility] Differential cell count method Nom (Bld) Auto [facility] Eosinophils (Bld) [#/Vol] 0.08 10*3/uL [facility] Eosinophils/100 WBC (Bld) 1.1 % [facility] Erythrocyte distribution width (RBC) [Ratio] 14.9 % 11.5 - 15.0 % [facility] Hematocrit (Bld) [Volume fraction] 38.1 % Low 39.0 - 51.0 % [facility] Hemoglobin (Bld) [Mass/Vol] 12.8 g/dL Low 13.0 - 17.0 g/dL [facility] Immature granulocytes (Bld) [#/Vol] 0.03 10*3/uL [facility] Immature granulocytes/100 WBC (Bld) 0.4 % [facility] [facility] Interpretation and review of laboratory results Abnormal [facility] Lymphocytes (Bld) [#/Vol] 0.66 10*3/uL Low [facility] Lymphocytes/100 WBC (Bld) 9.4 % [facility] MCH (RBC) [Entitic mass] 31.0 pg 26.0 - 34.0 pg [facility] MCHC (RBC) [Mass/Vol] 33.6 g/dL 30.5 - 36.0 g/dL [facility] MCV (RBC) [Entitic vol] 92.3 fL 80.0 - 100.0 fL [facility] Monocytes (Bld) [#/Vol] 1.02 10*3/uL High [facility] Monocytes/100 WBC (Bld) 14.5 % [facility] Neutrophils (Bld) [#/Vol] 5.22 10*3/uL [facility] Neutrophils/100 WBC (Bld) 74.2 % [facility] Nucleated RBC (Bld) [#/Vol] NINF [facility] Nucleated RBC/100 WBC (Bld) [Ratio] 0.0 % /100 WBC [facility] Platelet mean volume (Bld) [Entitic vol] 10.7 fL 9.0 - 12.7 fL [facility] Platelets (Bld) [#/Vol] 225 10*3/uL [facility] RBC (Bld) [#/Vol] 4.13 10*6/uL Low 4.20 - 6.00 m/uL [facility] WBC (Bld) [#/Vol] 7.04 10*3/uL [facility] Basophils (Bld) [#/Vol] 0.03 10*3/uL Normal <0.11 [facility] Comment on above: Order Comment: Speci men Type: BLOOD SPECIMENOrdering Facility: [facility] Address: [address] [place] [address] Performed By: #### 5 7021-8 ####[facility] LABCLIA [id number] [place] [address] Basophils/100 WBC (Bld) 0.4 % Normal [facility] Comment on above: Order Comment: Speci men Type: BLOOD SPECIMENOrdering Facility: [facility] Address: [address] [place] [address] Performed By: #### 5 7021-8 ####[facility] LABCLIA [id number] [place] [address] Differential cell count method Nom (Bld) Auto Normal [facility] Comment on above: Order Comment: Speci men Type: BLOOD SPECIMENOrdering Facility: [facility] Address: [address] [place] [address] Performed By: #### 5 7021-8 ####[facility] LABCLIA [id number] [place] [address] Eosinophils (Bld) [#/Vol] 0.08 10*3/uL Normal <0.46 [facility] Comment on above: Order Comment: Speci men Type: BLOOD SPECIMENOrdering Facility: [facility] Address: [address] [place] [address] Performed By: #### 5 7021-8 ####[facility] LABCLIA [id number] [place] [address] Eosinophils/100 WBC (Bld) 1.1 % Normal [facility] Comment on above: Order Comment: Speci men Type: BLOOD SPECIMENOrdering Facility: [facility] Address: [address] [place] [address] Performed By: #### 5 7021-8 ####[facility] LABCLIA [id number] [place] [address] Erythrocyte distribution width (RBC) [Ratio] 14.9 % Normal 11.5-15.0 [facility] Comment on above: Order Comment: Speci men Type: BLOOD SPECIMENOrdering Facility: [facility] Address: [address] [place] [address] Performed By: #### 5 7021-8 ####[facility] LABCLIA [id number] [place] [address] Hematocrit (Bld) [Volume fraction] 38.1 % Low 39.0-51.0 [facility] Comment on above: Order Comment: Speci men Type: BLOOD SPECIMENOrdering Facility: [facility] Address: [address] [place] [address] Performed By: #### 5 7021-8 ####[facility] LABCLIA [id number] [place] [address] Hemoglobin (Bld) [Mass/Vol] 12.8 g/dL Low 13.0-17.0 [facility] Comment on above: Order Comment: Speci men Type: BLOOD SPECIMENOrdering Facility: [facility] Address: [address] [place] [address] Performed By: #### 5 7021-8 ####[facility] LABCLIA [id number] [place] [address] Immature granulocytes (Bld) [#/Vol] 0.03 10*3/uL Normal <0.10 [facility] Comment on above: Order Comment: Speci men Type: BLOOD SPECIMENOrdering Facility: [facility] Address: [address] [place] [address] Performed By: #### 5 7021-8 ####[facility] LABCLIA [id number] [place] [address] Immature granulocytes/100 WBC (Bld) 0.4 % Normal [facility] Comment on above: Order Comment: Speci men Type: BLOOD SPECIMENOrdering Facility: [facility] Address: [address] [place] [address] Performed By: #### 5 7021-8 ####[facility] LABCLIA [id number] [place] [address] Lymphocytes (Bld) [#/Vol] 0.66 10*3/uL Low 1.00-4.00 [facility] Comment on above: Order Comment: Speci men Type: BLOOD SPECIMENOrdering Facility: [facility] Address: [address] [place] [address] Performed By: #### 5 7021-8 ####[facility] LABCLIA [id number] [place] [address] Lymphocytes/100 WBC (Bld) 9.4 % Normal [facility] Comment on above: Order Comment: Speci men Type: BLOOD SPECIMENOrdering Facility: [facility] Address: [address] [place] [address] Performed By: #### 5 7021-8 ####[facility] LABCLIA [id number] [place] [address] MCH (RBC) [Entitic mass] 31.0 pg Normal 26.0-34.0 [facility] Comment on above: Order Comment: Speci men Type: BLOOD SPECIMENOrdering Facility: [facility] Address: [address] [place] [address] Performed By: #### 5 7021-8 ####[facility] LABCLIA [id number] [place] [address] MCHC (RBC) [Mass/Vol] 33.6 g/dL Normal 30.5-36.0 [facility] Comment on above: Order Comment: Speci men Type: BLOOD SPECIMENOrdering Facility: [facility] Address: [address] [place] [address] Performed By: #### 5 7021-8 ####[facility] LABCLIA [id number] [place] [address] MCV (RBC) [Entitic vol] 92.3 fL Normal 80.0-100.0 [facility] Comment on above: Order Comment: Speci men Type: BLOOD SPECIMENOrdering Facility: [facility] Address: [address] [place] [address] Performed By: #### 5 7021-8 ####[facility] LABCLIA [id number] [place] [address] Monocytes (Bld) [#/Vol] 1.02 10*3/uL High <0.87 [facility] Comment on above: Order Comment: Speci men Type: BLOOD SPECIMENOrdering Facility: [facility] Address: [address] [place] [address] Performed By: #### 5 7021-8 ####[facility] LABCLIA [id number] [place] [address] Monocytes/100 WBC (Bld) 14.5 % Normal [facility] Comment on above: Order Comment: Speci men Type: BLOOD SPECIMENOrdering Facility: [facility] Address: [address] [place] [address] Performed By: #### 5 7021-8 ####[facility] LABCLIA [id number] [place] [address] Neutrophils (Bld) [#/Vol] 5.22 10*3/uL Normal 1.45-7.50 [facility] Comment on above: Order Comment: Speci men Type: BLOOD SPECIMENOrdering Facility: [facility] Address: [address] [place] [address] Performed By: #### 5 7021-8 ####[facility] LABCLIA [id number] [place] [address] Neutrophils/100 WBC (Bld) 74.2 % Normal [facility] Comment on above: Order Comment: Speci men Type: BLOOD SPECIMENOrdering Facility: [facility] Address: [address] [place] [address] Performed By: #### 5 7021-8 ####[facility] LABCLIA [id number] [place] [address] Nucleated RBC (Bld) [#/Vol] 10*3/uL Normal <0.01 [facility] Comment on above: Order Comment: Speci men Type: BLOOD SPECIMENOrdering Facility: [facility] Address: [address] [place] [address] Performed By: #### 5 7021-8 ####[facility] LABCLIA [id number] [place] [address] Nucleated RBC/100 WBC (Bld) [Ratio] 0.0 /100 WBC Normal [facility] Comment on above: Order Comment: Speci men Type: BLOOD SPECIMENOrdering Facility: [facility] Address: [address] [place] [address] Performed By: #### 5 7021-8 ####[facility] LABCLIA [id number] [place] [address] Platelet mean volume (Bld) [Entitic vol] 10.7 fL Normal 9.0-12.7 [facility] Comment on above: Order Comment: Speci men Type: BLOOD SPECIMENOrdering Facility: [facility] Address: [address] [place] [address] Performed By: #### 5 7021-8 ####[facility] LABCLIA [id number] [place] [address] Platelets (Bld) [#/Vol] 225 10*3/uL Normal 150-400 [facility] Comment on above: Order Comment: Speci men Type: BLOOD SPECIMENOrdering Facility: [facility] Address: [address] [place] [address] Performed By: #### 5 7021-8 ####[facility] LABIA [id number] [place] [address] RBC (Bld) [#/Vol] 4.13 10*6/uL Low 4.20-6.00 [facility] Comment on above: Order Comment: Speci men Type: BLOOD SPECIMENOrdering Facility: [facility] Address: [address] [place] [address] Performed By: #### 5 7021-8 ####[facility] LABIA [id number] [place] [address] WBC (Bld) [#/Vol] 7.04 10*3/uL Normal 3.70-11.00 [facility] Comment on above: Order Comment: Speci men Type: BLOOD SPECIMENOrdering Facility: [facility] Address: [address] [place] [address] Performed By: #### 5 7021-8 ####[facility] LABIA [id number] [place] [address] Comprehensive metabolic 2000 panelOrdered By: Sim Pereyra on 11-25-2023 Albumin [Mass/Vol] 3.8 g/dL Low 3.9 - 4.9 g/dL [facility] ALP [Catalytic activity/Vol] 51 U/L 38 - 113 U/L [facility] ALT [Catalytic activity/Vol] 25 U/L 10 - 54 U/L [facility] Anion gap [Moles/Vol] 12 mmol/L 9 - 18 mmol/L [facility] AST [Catalytic activity/Vol] 18 U/L 14 - 40 U/L [facility] Bilirubin [Mass/Vol] 0.8 mg/dL 0.2 - 1.3 mg/dL [facility] Calcium [Mass/Vol] 9.1 mg/dL 8.5 - 10.2 mg/dL [facility] Chloride [Moles/Vol] 100 mmol/L 97 - 105 mmol/L [facility] CO2 [Moles/Vol] 25 mmol/L 22 - 30 mmol/L [facility] [place] Creatinine [Mass/Vol] 1.20 mg/dL 0.73 - 1.22 mg/dL [facility] GFR/1.73 sq M.predicted among non-blacks MDRD (S/P/Bld) [Vol rate/Area] 67 mL/min/{1.73_m2} - PINF [facility] Comment on above: Estimated Glomerular Filtration [...] 100 mg/dL High 74 - 99 mg/dL [facility] Comment on above: The [place] Di[employer] Association (ADA) provides guidance for [...] Standards of Medical Care in Diabetes 2016, [place] [employer]. Diabetes Care. 2016.39(Suppl 1). Interpretation and review of laboratory results Abnormal [facility] Potassium [Moles/Vol] 3.9 mmol/L 3.7 - 5.1 mmol/L [facility] Protein [Mass/Vol] 7.3 g/dL 6.3 - 8.0 g/dL Cl [facility] Sodium [Moles/Vol] 137 mmol/L 136 - 144 mmol/L [facility] Urea nitrogen [Mass/Vol] 15 mg/dL 9 - 24 mg/dL [facility] Comprehensive metabolic 2000 panelon 11-25-2023 Albumin [Mass/Vol] 3.8 g/dL Low 3.9-4.9 [facility] Comment on above: Order Comment: Speci men Type: BLOOD SPECIMENOrdering Facility: [facility] Address: [address] [place] [address] Performed By: #### 2 4323-8 ####[facility] LABCLIA [id number] [place] [address] ALP [Catalytic activity/Vol] 51 U/L Normal 38-113 [facility] Comment on above: Order Comment: Speci men Type: BLOOD SPECIMENOrdering Facility: [facility] Address: [address] [place] [address] Performed By: #### 2 4323-8 ####[facility] LABCLIA [id number] [place] [address] ALT [Catalytic activity/Vol] 25 U/L Normal 10-54 [facility] Comment on above: Order Comment: Speci men Type: BLOOD SPECIMENOrdering Facility: [facility] Address: [address] [place] [address] Performed By: #### 2 4323-8 ####[facility] LABCLIA [id number] [place] [address] Anion gap [Moles/Vol] 12 mmol/L Normal 9-18 [facility] Comment on above: Order Comment: Speci men Type: BLOOD SPECIMENOrdering Facility: [facility] Address: [address] [place] [address] Performed By: #### 2 4323-8 ####[facility] LABCLIA [id number] [place] [address] AST [Catalytic activity/Vol] 18 U/L Normal 14-40 [facility] Comment on above: Order Comment: Speci men Type: BLOOD SPECIMENOrdering Facility: [facility] Address: [address] [place] [address] Performed By: #### 2 4323-8 ####[facility] LABCLIA [id number] [place] [address] Bilirubin [Mass/Vol] 0.8 mg/dL Normal 0.2-1.3 [facility] Comment on above: Order Comment: Speci men Type: BLOOD SPECIMENOrdering Facility: [facility] Address: [address] [place] [address] Performed By: #### 2 4323-8 ####[facility] LABCLIA [id number] [place] [address] Calcium [Mass/Vol] 9.1 mg/dL Normal 8.5-10.2 [facility] Comment on above: Order Comment: Speci men Type: BLOOD SPECIMENOrdering Facility: [facility] Address: [address] [place] [address] Performed By: #### 2 4323-8 ####[facility] LABCLIA [id number] [place] [address] Chloride [Moles/Vol] 100 mmol/L Normal 97-105 [facility] Comment on above: Order Comment: Speci men Type: BLOOD SPECIMENOrdering Facility: [facility] Address: [address] [place] [address] Performed By: #### 2 4323-8 ####[facility] LABCLIA [id number] [place] [address] CO2 [Moles/Vol] 25 mmol/L Normal 22-30 [facility] Comment on above: Order Comment: Speci men Type: BLOOD SPECIMENOrdering Facility: [facility] Address: [address] [place] [address] Performed By: #### 2 4323-8 ####[facility] LABCLIA [id number] [place] [address] Creatinine [Mass/Vol] 1.20 mg/dL Normal 0.73-1.22 [facility] Comment on above: Order Comment: Ajay rausch Type: BLOOD SPECIMENOrdering Facility: [facility] Address: [address] [place], [place] [address] Performed By: #### 2 4323-8 ####[facility] LABCLIA [id number] [place] [address] Creatinine and Glomerular filtration rate.predicted panel (S/P/Bld) 67 mL/min/1.73m??? Normal >=60 [facility] Comment on above: Order Comment: Speci men Type: BLOOD SPECIMENOrdering Facility: [facility] Address: [address] [place] [address] Result Comment: Landy mated Glomerular Filtration Rate [...] actual GFR. Performed By: #### 2 4323-8 ####[facility] LABCLIA [id number] [place] [address] Glucose [Mass/Vol] 100 mg/dL High 74-99 [facility] Comment on above: Order Comment: Ajay shalom Type: BLOOD SPECIMENOrdering Facility: [facility] Address: [address] [place], [place] [address] Result Comment: The [place] Diabetes Association (ADA) provides guidance for cutoff [...] Standards of Medical Care in Diabetes 2016, [place] [employer]. Diabetes Care. 2016.39(Suppl 1). Performed By: #### 2 4323-8 ####[facility] LABCLIA [id number] [place] [address] Potassium [Moles/Vol] 3.9 mmol/L Normal 3.7-5.1 [facility] Comment on above: Order Comment: Speci men Type: BLOOD SPECIMENOrdering Facility: [facility] Address: [address] [place] [address] Performed By: #### 2 4323-8 ####[facility] LABCLIA [id number] [place] [address] Protein [Mass/Vol] 7.3 g/dL Normal 6.3-8.0 [facility] Comment on above: Order Comment: Speci men Type: BLOOD SPECIMENOrdering Facility: [facility] Address: [address] [place] [address] Performed By: #### 2 4323-8 ####[facility] LABCLIA [id number] [place] [address] Sodium [Moles/Vol] 137 mmol/L Normal 136-144 [facility] Comment on above: Order Comment: Speci men Type: BLOOD SPECIMENOrdering Facility: [facility] Address: [address] [place] [address] Performed By: #### 2 4323-8 ####[facility] LABCLIA [id number] [place] [address] Urea nitrogen [Mass/Vol] 15 mg/dL Normal 9-24 [facility] Comment on above: Order Comment: Speci men Type: BLOOD SPECIMENOrdering Facility: [facility] Address: [address] [place] [address] Performed By: #### 2 4323-8 ####[facility] LABCLIA [id number] [place] [address] GLUCOSE, BLOOD (POC)on 11-24 Glucose [Mass/Vol] 95 mg/dL 74 - 99 mg/dL [facility] Comment on above: Location:[facility], [address] [place] [address] , [place], [place], [address] The Accu-Chek Inform II glucose meter has [...] blood gas instrument) in the above situations. [facility] NM PET/CT SKULL-THIGH SUBQon 11-25-2023 NM PET/CT SKULL-THIGH SUBQ Normal [facility] PET+CT Guidance for localiza tion of tumor of Skull base to mid-thigh-- W [id number]-FDG Anoop 11-25-2023 Radiology Study observation (narrative) [facility] TSH SerPl-aCncon 11-25-2023 TSH Qn 3.890 m[IU]/L Normal 0.270-4.200 [facility] Comment on above: Order Comment: Speci men Type: BLOOD SPECIMENOrdering Facility: [facility] Address: [address] [place] [address] Performed By: #### 3 016-3 ####[facility] LABCLIA [id number] [place] [address] [place] CNPNon 11-24-2023 CNPN Normal [facility] CNOVon 11-21-2023 CNOV Normal [facility] CNPNon 11-11-2023 CNPN Normal [facility] CBC W Auto Differential pane l (Bld)on 11-04-2023 Basophils (Bld) [#/Vol] <0.11 k/uL [facility] Basophils/100 WBC (Bld) 0.4 % [facility] Differential cell count method Nom (Bld) Auto [facility] Eosinophils (Bld) [#/Vol] 0.16 10*3/uL <0.46 k/uL [facility] Eosinophils/100 WBC (Bld) 2.9 % [facility] Erythrocyte distribution width (RBC) [Ratio] 17.0 % High 11.5 - 15.0 % [facility] Hematocrit (Bld) [Volume fraction] 37.1 % Low 39.0 - 51.0 % [facility] Hemoglobin (Bld) [Mass/Vol] 12.5 g/dL Low 13.0 - 17.0 g/dL [facility] Immature granulocytes (Bld) [#/Vol] 0.03 10*3/uL <0.10 k/uL [facility] Immature granulocytes/100 WBC (Bld) 0.5 % [facility] Lymphocytes (Bld) [#/Vol] 0.86 10*3/uL Low 1.00 - 4.00 k/uL [facility] Lymphocytes/100 WBC (Bld) 15.4 % [facility] MCH (RBC) [Entitic mass] 30.9 pg 26.0 - 34.0 pg [facility] MCHC (RBC) [Mass/Vol] 33.7 g/dL 30.5 - 36.0 g/dL [facility] MCV (RBC) [Entitic vol] 91.6 fL 80.0 - 100.0 fL [facility] Monocytes (Bld) [#/Vol] 0.95 10*3/uL High <0.87 k/uL [facility] Monocytes/100 WBC (Bld) 17.0 % [facility] Neutrophils (Bld) [#/Vol] 3.57 10*3/uL 1.45 - 7.50 k/uL [facility] Neutrophils/100 WBC (Bld) 63.8 % [facility] Nucleated RBC (Bld) [#/Vol] <0.01 k/uL [facility] Nucleated RBC/100 WBC (Bld) [Ratio] 0.0 /100 WBC [facility] Platelet mean volume (Bld) [Entitic vol] 10.7 fL 9.0 - 12.7 fL [facility] Platelets (Bld) [#/Vol] 186 10*3/uL 150 - 400 k/uL [facility] RBC (Bld) [#/Vol] 4.05 10*6/uL Low 4.20 - 6.00 m/uL [facility] WBC (Bld) [#/Vol] 5.59 10*3/uL 3.70 - 11.00 k/u L [facility] Basophils (Bld) [#/Vol] 10*3/uL Normal <0.11 [facility] Comment on above: Order Comment: Speci men Type: BLOOD SPECIMENOrdering Facility: [facility] Address: [address] [place] [address] Performed By: #### 5 7021-8 ####[facility] LABCLIA [id number] [place] [address] Basophils/100 WBC (Bld) 0.4 % Normal [facility] Comment on above: Order Comment: Speci men Type: BLOOD SPECIMENOrdering Facility: [facility] Address: [address] [place] [address] Performed By: #### 5 7021-8 ####[facility] LABCLIA [id number] [place] [address] Differential cell count method Nom (Bld) Auto Normal [facility] Comment on above: Order Comment: Speci men Type: BLOOD SPECIMENOrdering Facility: [facility] Address: [address] [place] [address] Performed By: #### 5 7021-8 ####[facility] LABCLIA [id number] [place] [address] Eosinophils (Bld) [#/Vol] 0.16 10*3/uL Normal <0.46 [facility] Comment on above: Order Comment: Speci men Type: BLOOD SPECIMENOrdering Facility: [facility] Address: [address] [place] [address] Performed By: #### 5 7021-8 ####[facility] LABCLIA [id number] [place] [address] Eosinophils/100 WBC (Bld) 2.9 % Normal [facility] Comment on above: Order Comment: Speci men Type: BLOOD SPECIMENOrdering Facility: [facility] Address: [address] [place] [address] Performed By: #### 5 7021-8 ####[facility] LABCLIA [id number] [place] [address] Erythrocyte distribution width (RBC) [Ratio] 17.0 % High 11.5-15.0 [facility] Comment on above: Order Comment: Speci men Type: BLOOD SPECIMENOrdering Facility: [facility] Address: [address] [place] [address] Performed By: #### 5 7021-8 ####[facility] LABCLIA [id number] [place] [address] Hematocrit (Bld) [Volume fraction] 37.1 % Low 39.0-51.0 [facility] Comment on above: Order Comment: Speci men Type: BLOOD SPECIMENOrdering Facility: [facility] Address: [address] [place] [address] Performed By: #### 5 7021-8 ####[facility] LABCLIA [id number] [place] [address] Hemoglobin (Bld) [Mass/Vol] 12.5 g/dL Low 13.0-17.0 [facility] Comment on above: Order Comment: Speci men Type: BLOOD SPECIMENOrdering Facility: [facility] Address: [address] [place] [address] Performed By: #### 5 7021-8 ####[facility] LABCLIA [id number] [place] [address] Immature granulocytes (Bld) [#/Vol] 0.03 10*3/uL Normal <0.10 [facility] Comment on above: Order Comment: Speci men Type: BLOOD SPECIMENOrdering Facility: [facility] Address: [address] [place] [address] Performed By: #### 5 7021-8 ####[facility] LABCLIA [id number] [place] [address] Immature granulocytes/100 WBC (Bld) 0.5 % Normal [facility] Comment on above: Order Comment: Speci men Type: BLOOD SPECIMENOrdering Facility: [facility] Address: [address] [place] [address] Performed By: #### 5 7021-8 ####[facility] LABCLIA [id number] [place] [address] Lymphocytes (Bld) [#/Vol] 0.86 10*3/uL Low 1.00-4.00 [facility] Comment on above: Order Comment: Speci men Type: BLOOD SPECIMENOrdering Facility: [facility] Address: [address] [place] [address] Performed By: #### 5 7021-8 ####[facility] LABCLIA [id number] [place] [address] Lymphocytes/100 WBC (Bld) 15.4 % Normal [facility] Comment on above: Order Comment: Speci men Type: BLOOD SPECIMENOrdering Facility: [facility] Address: [address] [place] [address] Performed By: #### 5 7021-8 ####[facility] LABCLIA [id number] [place] [address] MCH (RBC) [Entitic mass] 30.9 pg Normal 26.0-34.0 [facility] Comment on above: Order Comment: Speci men Type: BLOOD SPECIMENOrdering Facility: [facility] Address: [address] [place] [address] Performed By: #### 5 7021-8 ####[facility] LABCLIA [id number] [place] [address] MCHC (RBC) [Mass/Vol] 33.7 g/dL Normal 30.5-36.0 [facility] Comment on above: Order Comment: Speci men Type: BLOOD SPECIMENOrdering Facility: [facility] Address: [address] [place] [address] Performed By: #### 5 7021-8 ####[facility] LABCLIA [id number] [place] [address] MCV (RBC) [Entitic vol] 91.6 fL Normal 80.0-100.0 [facility] Comment on above: Order Comment: Speci men Type: BLOOD SPECIMENOrdering Facility: [facility] Address: [address] [place] [address] Performed By: #### 5 7021-8 ####[facility] LABCLIA [id number] [place] [address] Monocytes (Bld) [#/Vol] 0.95 10*3/uL High <0.87 [facility] Comment on above: Order Comment: Speci men Type: BLOOD SPECIMENOrdering Facility: [facility] Address: [address] [place] [address] Performed By: #### 5 7021-8 ####[facility] LABCLIA [id number] [place] [address] Monocytes/100 WBC (Bld) 17.0 % Normal [facility] Comment on above: Order Comment: Speci men Type: BLOOD SPECIMENOrdering Facility: [facility] Address: [address] [place] [address] Performed By: #### 5 7021-8 ####[facility] LABCLIA [id number] [place] [address] Neutrophils (Bld) [#/Vol] 3.57 10*3/uL Normal 1.45-7.50 [facility] Comment on above: Order Comment: Speci men Type: BLOOD SPECIMENOrdering Facility: [facility] Address: [address] [place] [address] Performed By: #### 5 7021-8 ####[facility] LABCLIA [id number] [place] [address] Neutrophils/100 WBC (Bld) 63.8 % Normal [facility] Comment on above: Order Comment: Speci men Type: BLOOD SPECIMENOrdering Facility: [facility] Address: [address] [place] [address] Performed By: #### 5 7021-8 ####[facility] LABCLIA [id number] [place] [address] Nucleated RBC (Bld) [#/Vol] 10*3/uL Normal <0.01 [facility] Comment on above: Order Comment: Speci men Type: BLOOD SPECIMENOrdering Facility: [facility] Address: [address] [place] [address] Performed By: #### 5 7021-8 ####[facility] LABCLIA [id number] [place] [address] Nucleated RBC/100 WBC (Bld) [Ratio] 0.0 /100 WBC Normal [facility] Comment on above: Order Comment: Speci men Type: BLOOD SPECIMENOrdering Facility: [facility] Address: [address] [place] [address] Performed By: #### 5 7021-8 ####[facility] LABCLIA [id number] [place] [address] Platelet mean volume (Bld) [Entitic vol] 10.7 fL Normal 9.0-12.7 [facility] Comment on above: Order Comment: Speci men Type: BLOOD SPECIMENOrdering Facility: [facility] Address: [address] [place] [address] Performed By: #### 5 7021-8 ####[facility] LABCLIA [id number] [place] [address] Platelets (Bld) [#/Vol] 186 10*3/uL Normal 150-400 [facility] Comment on above: Order Comment: Speci men Type: BLOOD SPECIMENOrdering Facility: [facility] Address: [address] [place] [address] Performed By: #### 5 7021-8 ####[facility] LABCLIA [id number] [place] [address] RBC (Bld) [#/Vol] 4.05 10*6/uL Low 4.20-6.00 [facility] Comment on above: Order Comment: Speci men Type: BLOOD SPECIMENOrdering Facility: [facility] Address: [address] [place] [address] Performed By: #### 5 7021-8 ####[facility] LABCLIA [id number] [place] [address] WBC (Bld) [#/Vol] 5.59 10*3/uL Normal 3.70-11.00 [facility] Comment on above: Order Comment: Speci men Type: BLOOD SPECIMENOrdering Facility: [facility] Address: [address] [place] [address] Performed By: #### 5 7021-8 ####[facility] LABCLIA [id number] [place] [address] CNCNPATEDon 11-04-2023 CNCNPATED Normal [facility] CNOVSPon 11-04-2023 CNOVSP Normal [facility] CNPNon 11-04-2023 CNPN Normal [facility] Comprehensive metabolic 2000 panelon 11-04-2023 Albumin [Mass/Vol] 4.0 g/dL 3.9 - 4.9 g/dL [facility] ALP [Catalytic activity/Vol] 65 U/L 38 - 113 U/L [facility] ALT [Catalytic activity/Vol] 415 U/L High 10 - 54 U/L [facility] Anion gap [Moles/Vol] 14 mmol/L 9 - 18 mmol/L [facility] AST [Catalytic activity/Vol] 100 U/L High 14 - 40 U/L [facility] Bilirubin [Mass/Vol] 1.0 mg/dL 0.2 - 1.3 mg/dL [facility] Calcium [Mass/Vol] 9.9 mg/dL 8.5 - 10.2 mg/dL [facility] Chloride [Moles/Vol] 107 mmol/L High 97 - 105 mmol/L [facility] CO2 [Moles/Vol] 23 mmol/L 22 - 30 mmol/L [facility] Creatinine [Mass/Vol] 1.23 mg/dL High 0.73 - 1.22 mg/dL [facility] Estimated Glomerular Filtration Rate 65 mL/min/1.73m >=60 mL/min/1.73m [facility] Glucose [Mass/Vol] 95 mg/dL 74 - 99 mg/dL [facility] Potassium [Moles/Vol] 3.5 mmol/L Low 3.7 - 5.1 mmol/L [facility] Protein [Mass/Vol] 7.3 g/dL 6.3 - 8.0 g/dL [facility] Sodium [Moles/Vol] 144 mmol/L 136 - 144 mmol/L [facility] Urea nitrogen [Mass/Vol] 19 mg/dL 9 - 24 mg/dL [facility] Albumin [Mass/Vol] 4.0 g/dL Normal 3.9-4.9 [facility] Comment on above: Order Comment: Speci men Type: BLOOD SPECIMENOrdering Facility: [facility] Address: [address] [place] [address] Performed By: #### 2 4323-8 ####[facility] LABCLIA [id number] [place] [address] ALP [Catalytic activity/Vol] 65 U/L Normal 38-113 [facility] Comment on above: Order Comment: Speci men Type: BLOOD SPECIMENOrdering Facility: [facility] Address: [address] [place] [address] Performed By: #### 2 4323-8 ####[facility] LABCLIA [id number] [place] [address] ALT [Catalytic activity/Vol] 415 U/L High 10-54 [facility] Comment on above: Order Comment: Speci men Type: BLOOD SPECIMENOrdering Facility: [facility] Address: [address] [place] [address] Performed By: #### 2 4323-8 ####[facility] LABIA [id number] [place] [address] Anion gap [Moles/Vol] 14 mmol/L Normal 9-18 [facility] Comment on above: Order Comment: Speci men Type: BLOOD SPECIMENOrdering Facility: [facility] Address: [address] [place] [address] Performed By: #### 2 4323-8 ####[facility] LABCLIA [id number] [place] [address] AST [Catalytic activity/Vol] 100 U/L High 14-40 [facility] Comment on above: Order Comment: Speci men Type: BLOOD SPECIMENOrdering Facility: [facility] Address: [address] [place] [address] Performed By: #### 2 4323-8 ####[facility] LABCLIA [id number] [place] [address] Bilirubin [Mass/Vol] 1.0 mg/dL Normal 0.2-1.3 [facility] Comment on above: Order Comment: Speci men Type: BLOOD SPECIMENOrdering Facility: [facility] Address: [address] [place] [address] Performed By: #### 2 4323-8 ####[facility] LABCLIA [id number] [place] [address] Calcium [Mass/Vol] 9.9 mg/dL Normal 8.5-10.2 [facility] Comment on above: Order Comment: Speci men Type: BLOOD SPECIMENOrdering Facility: [facility] Address: [address] [place] [address] Performed By: #### 2 4323-8 ####[facility] LABCLIA [id number] [place] [address] Chloride [Moles/Vol] 107 mmol/L High 97-105 [facility] Comment on above: Order Comment: Speci men Type: BLOOD SPECIMENOrdering Facility: [facility] Address: [address] [place] [address] Performed By: #### 2 4323-8 ####[facility] LABCLIA [id number] [place] [address] CO2 [Moles/Vol] 23 mmol/L Normal 22-30 [facility] Comment on above: Order Comment: Speci men Type: BLOOD SPECIMENOrdering Facility: [facility] Address: [address] [place] [address] Performed By: #### 2 4323-8 ####[facility] LABCLIA [id number] [place] [address] Creatinine [Mass/Vol] 1.23 mg/dL High 0.73-1.22 [facility] Comment on above: Order Comment: Speci men Type: BLOOD SPECIMENOrdering Facility: [facility] Address: [address] [place] [address] Performed By: #### 2 4323-8 ####[facility] LABCLIA [id number] [place] [address] Creatinine and Glomerular filtration rate.predicted panel (S/P/Bld) 65 mL/min/1.73m??? Normal >=60 [facility] Comment on above: Order Comment: Speci men Type: BLOOD SPECIMENOrdering Facility: [facility] Address: [address] [place] [address] Result Comment: Landy mated Glomerular Filtration Rate [...] actual GFR. Performed By: #### 2 4323-8 ####[facility] LABCLIA [id number] [place] [address] Glucose [Mass/Vol] 95 mg/dL Normal 74-99 [facility] Comment on above: Order Comment: Speci men Type: BLOOD SPECIMENOrdering Facility: [facility] Address: [address] [place] [address] Result Comment: The [place] [employer] (ADA) provides guidance for cutoff [...] Standards of Medical Care in Diabetes 2016, [place] [employer]. Diabetes Care. 2016.39(Suppl 1). Performed By: #### 2 4323-8 ####[facility] LABCLIA [id number] [place] [address] Potassium [Moles/Vol] 3.5 mmol/L Low 3.7-5.1 [facility] Comment on above: Order Comment: Speci men Type: BLOOD SPECIMENOrdering Facility: [facility] Address: [address] [place] [address] Performed By: #### 2 4323-8 ####[facility] LABCLIA [id number] [place] [address] Protein [Mass/Vol] 7.3 g/dL Normal 6.3-8.0 [facility] Comment on above: Order Comment: Speci men Type: BLOOD SPECIMENOrdering Facility: [facility] Address: [address] [place] [address] Performed By: #### 2 4323-8 ####[facility] LABCLIA [id number] [place] [address] Sodium [Moles/Vol] 144 mmol/L Normal 136-144 [facility] Comment on above: Order Comment: Speci men Type: BLOOD SPECIMENOrdering Facility: [facility] Address: [address] [place] [address] Performed By: #### 2 4323-8 ####[facility] LABCLIA [id number] [place] [address] Urea nitrogen [Mass/Vol] 19 mg/dL Normal 9-24 [facility] Comment on above: Order Comment: Speci men Type: BLOOD SPECIMENOrdering Facility: [facility] Address: [address] [place] [address] Performed By: #### 2 4323-8 ####[facility] LABCLIA [id number] [place] [address] CNPNon 10-24-2023 CNPN Normal [facility] CNPNon 10-21-2023 CNPN Normal [facility] CT CHEST W IVCONon CT CHEST W IVCON Normal [facility] CT Chest W contrast Anoop IMPRESSION: 1. [...] any questions regarding this interpretation, please call [phone]. If you are unable to reach us at the number above, please feel free to contact [facility] eRadiology at [phone]. DIVISION OF RADIOLOGY * * *Final Report* * * DATE OF EXAM: Oct 21 2023 11:27AM [facility] 0539 - CT CHEST W IVCON / [...] No abnormality in the imaged upper abdomen. Tile Finisher (topogram) images: No additional findings. DIVISION OF RADIOLOGY Provider, [facility] - 10/21/2023 * * *Final Report* * * DATE OF EXAM: Oct 21 2023 11:27AM [facility] 0539 - CT CHEST W IVCON / [...] No abnormality in the imaged upper abdomen. Tile Finisher (topogram) images: No additional findings. IMPRESSION IMPRESSION: [...] any questions regarding this interpretation, please call [phone]. If you are unable to reach us at the number above, please feel free to contact [facility] eRadiology at [phone]. [facility] Radiology Study observation (narrative) [facility] CT Chest W contrast IVOrdere d By: [facility] Provider on 10-21-2023 [facility] CBC W Auto Differential pane l (Bld)on 10-20-2023 Basophils (Bld) [#/Vol] <0.11 k/uL [facility] Basophils/100 WBC (Bld) 0.4 % [facility] Differential cell count method Nom (Bld) Auto [facility] Eosinophils (Bld) [#/Vol] 0.07 10*3/uL <0.46 k/uL [facility] Eosinophils/100 WBC (Bld) 1.3 % [facility] Erythrocyte distribution width (RBC) [Ratio] 15.9 % High 11.5 - 15.0 % [facility] Hematocrit (Bld) [Volume fraction] 40.6 % 39.0 - 51.0 % [facility] Hemoglobin (Bld) [Mass/Vol] 13.6 g/dL 13.0 - 17.0 g/dL [facility] Immature granulocytes (Bld) [#/Vol] 0.03 10*3/uL <0.10 k/uL [facility] Immature granulocytes/100 WBC (Bld) 0.5 % [facility] Lymphocytes (Bld) [#/Vol] 1.04 10*3/uL 1.00 - 4.00 k/uL [facility] Lymphocytes/100 WBC (Bld) 18.6 % [facility] MCH (RBC) [Entitic mass] 30.4 pg 26.0 - 34.0 pg [facility] MCHC (RBC) [Mass/Vol] 33.5 g/dL 30.5 - 36.0 g/dL [facility] MCV (RBC) [Entitic vol] 90.6 fL 80.0 - 100.0 fL [facility] Monocytes (Bld) [#/Vol] 0.78 10*3/uL <0.87 k/uL [facility] Monocytes/100 WBC (Bld) 13.9 % [facility] Neutrophils (Bld) [#/Vol] 3.66 10*3/uL 1.45 - 7.50 k/uL [facility] Neutrophils/100 WBC (Bld) 65.3 % [facility] Nucleated RBC (Bld) [#/Vol] <0.01 k/uL [facility] Nucleated RBC/100 WBC (Bld) [Ratio] 0.0 /100 WBC [facility] Platelet mean volume (Bld) [Entitic vol] 10.7 fL 9.0 - 12.7 fL [facility] Platelets (Bld) [#/Vol] 214 10*3/uL 150 - 400 k/uL [facility] RBC (Bld) [#/Vol] 4.48 10*6/uL 4.20 - 6.00 m/uL [facility] WBC (Bld) [#/Vol] 5.60 10*3/uL 3.70 - 11.00 k/u L [facility] Basophils (Bld) [#/Vol] 10*3/uL Normal <0.11 [facility] Comment on above: Order Comment: Speci men Type: BLOOD SPECIMENOrdering Facility: [facility] Address: [address] [place] [address] Performed By: #### 5 7021-8 ####[facility] LABCLIA [id number] [place] [address] Basophils/100 WBC (Bld) 0.4 % Normal [facility] Comment on above: Order Comment: Speci men Type: BLOOD SPECIMENOrdering Facility: [facility] Address: [address] [place] [address] Performed By: #### 5 7021-8 ####[facility] LABCLIA [id number] [place] [address] Differential cell count method Nom (Bld) Auto Normal [facility] Comment on above: Order Comment: Speci men Type: BLOOD SPECIMENOrdering Facility: [facility] Address: [address] [place] [address] Performed By: #### 5 7021-8 ####[facility] LABCLIA [id number] [place] [address] Eosinophils (Bld) [#/Vol] 0.07 10*3/uL Normal <0.46 [facility] Comment on above: Order Comment: Speci men Type: BLOOD SPECIMENOrdering Facility: [facility] Address: [address] [place] [address] Performed By: #### 5 7021-8 ####[facility] LABCLIA [id number] [place] [address] Eosinophils/100 WBC (Bld) 1.3 % Normal [facility] Comment on above: Order Comment: Speci men Type: BLOOD SPECIMENOrdering Facility: [facility] Address: [address] [place] [address] Performed By: #### 5 7021-8 ####[facility] LABCLIA [id number] [place] [address] Erythrocyte distribution width (RBC) [Ratio] 15.9 % High 11.5-15.0 [facility] Comment on above: Order Comment: Speci men Type: BLOOD SPECIMENOrdering Facility: [facility] Address: [address] [place] [address] Performed By: #### 5 7021-8 ####[facility] LABCLIA [id number] [place] [address] Hematocrit (Bld) [Volume fraction] 40.6 % Normal 39.0-51.0 [facility] Comment on above: Order Comment: Speci men Type: BLOOD SPECIMENOrdering Facility: [facility] Address: [address] [place] [address] Performed By: #### 5 7021-8 ####[facility] LABCLIA [id number] [place] [address] Hemoglobin (Bld) [Mass/Vol] 13.6 g/dL Normal 13.0-17.0 [facility] Comment on above: Order Comment: Speci men Type: BLOOD SPECIMENOrdering Facility: [facility] Address: [address] [place] [address] Performed By: #### 5 7021-8 ####[facility] LABCLIA [id number] [place] [address] Immature granulocytes (Bld) [#/Vol] 0.03 10*3/uL Normal <0.10 [facility] Comment on above: Order Comment: Speci men Type: BLOOD SPECIMENOrdering Facility: [facility] Address: [address] [place] [address] Performed By: #### 5 7021-8 ####[facility] LABCLIA [id number] [place] [address] Immature granulocytes/100 WBC (Bld) 0.5 % Normal [facility] Comment on above: Order Comment: Speci men Type: BLOOD SPECIMENOrdering Facility: [facility] Address: [address] [place] [address] Performed By: #### 5 7021-8 ####[facility] LABCLIA [id number] [place] [address] Lymphocytes (Bld) [#/Vol] 1.04 10*3/uL Normal 1.00-4.00 [facility] Comment on above: Order Comment: Speci men Type: BLOOD SPECIMENOrdering Facility: [facility] Address: [address] [place] [address] Performed By: #### 5 7021-8 ####[facility] LABCLIA [id number] [place] [address] Lymphocytes/100 WBC (Bld) 18.6 % Normal [facility] Comment on above: Order Comment: Speci men Type: BLOOD SPECIMENOrdering Facility: [facility] Address: [address] [place] [address] Performed By: #### 5 7021-8 ####[facility] LABCLIA [id number] [place] [address] MCH (RBC) [Entitic mass] 30.4 pg Normal 26.0-34.0 [facility] Comment on above: Order Comment: Speci men Type: BLOOD SPECIMENOrdering Facility: [facility] Address: [address] [place] [address] Performed By: #### 5 7021-8 ####[facility] LABCLIA [id number] [place] [address] MCHC (RBC) [Mass/Vol] 33.5 g/dL Normal 30.5-36.0 [facility] Comment on above: Order Comment: Speci men Type: BLOOD SPECIMENOrdering Facility: [facility] Address: [address] [place] [address] Performed By: #### 5 7021-8 ####[facility] LABCLIA [id number] [place] [address] MCV (RBC) [Entitic vol] 90.6 fL Normal 80.0-100.0 [facility] Comment on above: Order Comment: Speci men Type: BLOOD SPECIMENOrdering Facility: [facility] Address: [address] [place] [address] Performed By: #### 5 7021-8 ####[facility] LABCLIA [id number] [place] [address] Monocytes (Bld) [#/Vol] 0.78 10*3/uL Normal <0.87 [facility] Comment on above: Order Comment: Speci men Type: BLOOD SPECIMENOrdering Facility: [facility] Address: [address] [place] [address] Performed By: #### 5 7021-8 ####[facility] LABCLIA [id number] [place] [address] Monocytes/100 WBC (Bld) 13.9 % Normal [facility] Comment on above: Order Comment: Speci men Type: BLOOD SPECIMENOrdering Facility: [facility] Address: [address] [place] [address] Performed By: #### 5 7021-8 ####[facility] LABCLIA [id number] [place] [address] Neutrophils (Bld) [#/Vol] 3.66 10*3/uL Normal 1.45-7.50 [facility] Comment on above: Order Comment: Speci men Type: BLOOD SPECIMENOrdering Facility: [facility] Address: [address] [place] [address] Performed By: #### 5 7021-8 ####[facility] LABCLIA [id number] [place] [address] Neutrophils/100 WBC (Bld) 65.3 % Normal [facility] Comment on above: Order Comment: Speci men Type: BLOOD SPECIMENOrdering Facility: [facility] Address: [address] [place] [address] Performed By: #### 5 7021-8 ####[facility] LABCLIA [id number] [place] [address] Nucleated RBC (Bld) [#/Vol] 10*3/uL Normal <0.01 [facility] Comment on above: Order Comment: Speci men Type: BLOOD SPECIMENOrdering Facility: [facility] Address: [address] [place] [address] Performed By: #### 5 7021-8 ####[facility] LABCLIA [id number] [place] [address] Nucleated RBC/100 WBC (Bld) [Ratio] 0.0 /100 WBC Normal [facility] Comment on above: Order Comment: Speci men Type: BLOOD SPECIMENOrdering Facility: [facility] Address: [address] [place] [address] Performed By: #### 5 7021-8 ####[facility] LABCLIA [id number] [place] [address] Platelet mean volume (Bld) [Entitic vol] 10.7 fL Normal 9.0-12.7 [facility] Comment on above: Order Comment: Speci men Type: BLOOD SPECIMENOrdering Facility: [facility] Address: [address] [place] [address] Performed By: #### 5 7021-8 ####[facility] LABCLIA [id number] [place] [address] Platelets (Bld) [#/Vol] 214 10*3/uL Normal 150-400 [facility] Comment on above: Order Comment: Speci men Type: BLOOD SPECIMENOrdering Facility: [facility] Address: [address] [place] [address] Performed By: #### 5 7021-8 ####[facility] LABIA [id number] [place] [address] RBC (Bld) [#/Vol] 4.48 10*6/uL Normal 4.20-6.00 [facility] Comment on above: Order Comment: Speci men Type: BLOOD SPECIMENOrdering Facility: [facility] Address: [address] [place] [address] Performed By: #### 5 7021-8 ####[facility] LABIA [id number] [place] [address] WBC (Bld) [#/Vol] 5.60 10*3/uL Normal 3.70-11.00 [facility] Comment on above: Order Comment: Speci men Type: BLOOD SPECIMENOrdering Facility: [facility] Address: [address] [place] [address] Performed By: #### 5 7021-8 ####[facility] LABIA [id number] [place] [address] CNOVSPon 10-20-2023 CNOVSP Normal [facility] Comprehensive metabolic 2000 panelon 10-20-2023 Albumin [Mass/Vol] 4.6 g/dL 3.9 - 4.9 g/dL [facility] ALP [Catalytic activity/Vol] 55 U/L 38 - 113 U/L [facility] ALT [Catalytic activity/Vol] 48 U/L 10 - 54 U/L [facility] Anion gap [Moles/Vol] 15 mmol/L 9 - 18 mmol/L [facility] AST [Catalytic activity/Vol] 30 U/L 14 - 40 U/L [facility] Bilirubin [Mass/Vol] 0.6 mg/dL 0.2 - 1.3 mg/dL [facility] Calcium [Mass/Vol] 10.9 mg/dL High 8.5 - 10.2 mg/dL [facility] Chloride [Moles/Vol] 105 mmol/L 97 - 105 mmol/L [facility] CO2 [Moles/Vol] 26 mmol/L 22 - 30 mmol/L [facility] Creatinine [Mass/Vol] 1.28 mg/dL High 0.73 - 1.22 mg/dL [facility] Estimated Glomerular Filtration Rate 62 mL/min/1.73m >=60 mL/min/1.73m [facility] Glucose [Mass/Vol] 95 mg/dL 74 - 99 mg/dL [facility] Potassium [Moles/Vol] 4.2 mmol/L 3.7 - 5.1 mmol/L [facility] Protein [Mass/Vol] 8.0 g/dL 6.3 - 8.0 g/dL [facility] Sodium [Moles/Vol] 146 mmol/L High 136 - 144 mmol/L [facility] Urea nitrogen [Mass/Vol] 25 mg/dL High 9 - 24 mg/dL [facility] Albumin [Mass/Vol] 4.6 g/dL Normal 3.9-4.9 [facility] Comment on above: Order Comment: Speci men Type: BLOOD SPECIMENOrdering Facility: [facility] Address: [address] [place] [address] Performed By: #### 2 4323-8 ####[facility] LABCLIA [id number] [place] [address] ALP [Catalytic activity/Vol] 55 U/L Normal 38-113 [facility] Comment on above: Order Comment: Speci men Type: BLOOD SPECIMENOrdering Facility: [facility] Address: [address] [place] [address] Performed By: #### 2 4323-8 ####[facility] LABCLIA [id number] [place] [address] ALT [Catalytic activity/Vol] 48 U/L Normal 10-54 [facility] Comment on above: Order Comment: Speci men Type: BLOOD SPECIMENOrdering Facility: [facility] Address: [address] [place] [address] Performed By: #### 2 4323-8 ####[facility] LABCLIA [id number] [place] [address] Anion gap [Moles/Vol] 15 mmol/L Normal 9-18 [facility] Comment on above: Order Comment: Speci men Type: BLOOD SPECIMENOrdering Facility: [facility] Address: [address] [place] [address] Performed By: #### 2 4323-8 ####[facility] LABCLIA [id number] [place] [address] AST [Catalytic activity/Vol] 30 U/L Normal 14-40 [facility] Comment on above: Order Comment: Speci men Type: BLOOD SPECIMENOrdering Facility: [facility] Address: [address] [place] [address] Performed By: #### 2 4323-8 ####[facility] LABCLIA [id number] [place] [address] Bilirubin [Mass/Vol] 0.6 mg/dL Normal 0.2-1.3 [facility] Comment on above: Order Comment: Speci men Type: BLOOD SPECIMENOrdering Facility: [facility] Address: [address] [place] [address] Performed By: #### 2 4323-8 ####[facility] LABCLIA [id number] [place] [address] Calcium [Mass/Vol] 10.9 mg/dL High 8.5-10.2 [facility] Comment on above: Order Comment: Speci men Type: BLOOD SPECIMENOrdering Facility: [facility] Address: [address] [place] [address] Result Comment: RECH ECKED JT Performed By: #### 2 4323-8 ####[facility] LABCLIA [id number] [place] [address] Chloride [Moles/Vol] 105 mmol/L Normal 97-105 [facility] Comment on above: Order Comment: Speci men Type: BLOOD SPECIMENOrdering Facility: [facility] Address: [address] [place] [address] Performed By: #### 2 4323-8 ####[facility] LABCLIA [id number] [place] [address] CO2 [Moles/Vol] 26 mmol/L Normal 22-30 [facility] Comment on above: Order Comment: Speci men Type: BLOOD SPECIMENOrdering Facility: [facility] Address: [address] [place] [address] Performed By: #### 2 4323-8 ####[facility] LABCLIA [id number] [place] [address] Creatinine [Mass/Vol] 1.28 mg/dL High 0.73-1.22 [facility] Comment on above: Order Comment: Speci men Type: BLOOD SPECIMENOrdering Facility: [facility] Address: [address] [place] [address] Performed By: #### 2 4323-8 ####[facility] LABCLIA [id number] [place] [address] Creatinine and Glomerular filtration rate.predicted panel (S/P/Bld) 62 mL/min/1.73m??? Normal >=60 [facility] Comment on above: Order Comment: Speci men Type: BLOOD SPECIMENOrdering Facility: [facility] Address: [address] [place] [address] Result Comment: Landy mated Glomerular Filtration Rate [...] actual GFR. Performed By: #### 2 4323-8 ####[facility] LABCLIA [id number] [place] [address] Glucose [Mass/Vol] 95 mg/dL Normal 74-99 [facility] Comment on above: Order Comment: Speci men Type: BLOOD SPECIMENOrdering Facility: [facility] Address: [address] [place], [place] [address] Result Comment: The [place] [employer] (ADA) provides guidance for cutoff [...] Standards of Medical Care in Diabetes 2016, [place] [employer]. Diabetes Care. 2016.39(Suppl 1). Performed By: #### 2 4323-8 ####[facility] LABCLIA [id number] [place] [address] Potassium [Moles/Vol] 4.2 mmol/L Normal 3.7-5.1 [facility] Comment on above: Order Comment: Speci men Type: BLOOD SPECIMENOrdering Facility: [facility] Address: [address] [place], [place] [address] Performed By: #### 2 4323-8 ####[facility] LABCLIA [id number] [place] [address] Protein [Mass/Vol] 8.0 g/dL Normal 6.3-8.0 [facility] Comment on above: Order Comment: Speci men Type: BLOOD SPECIMENOrdering Facility: [facility] Address: [address] [place], [place] [address] Performed By: #### 2 4323-8 ####[facility] LABCLIA [id number] [place] [address] Sodium [Moles/Vol] 146 mmol/L High 136-144 [facility] Comment on above: Order Comment: Speci men Type: BLOOD SPECIMENOrdering Facility: [facility] Address: [address] [place] [address] Performed By: #### 2 4323-8 ####[facility] LABCLIA [id number] [place] [address] Urea nitrogen [Mass/Vol] 25 mg/dL High 9-24 [facility] Comment on above: Order Comment: Speci men Type: BLOOD SPECIMENOrdering Facility: [facility] Address: [address] [place] [address] Performed By: #### 2 4323-8 ####[facility] LABCLIA [id number] [place] [address] TSH BLDon 10-20-2023 TSH Qn 4.200 m[IU]/L 0.270 - 4.200 mIU/L [facility] TSH SerPl-aCncon 10-20-2023 TSH Qn 4.200 m[IU]/L Normal 0.270-4.200 [facility] Comment on above: Order Comment: Speci men Type: BLOOD SPECIMENOrdering Facility: [facility] Address: [address] [place] [address] Performed By: #### 3 016-3 ####[facility] LABCLIA [id number] [place] [address] [place] Ambulatory Visit Summaryon [...] 11:20 AM EDT With: Enrique Austin Where: [place] [phone] \.br\ Medications\.br\ What How Much When Instructions\.br\ Unchanged alprazolam (alprazolam 0.25 mg Tab) 1 Tablets By Mouth 3 times a day as needed for for anxiety\.br\ Unchanged amoxicillin (amoxicillin 875 mg Tab) 1 Tablets By Mouth 2 times a day Duration: 10 Days Pickup at [facility]\.br\ Unchanged atorvastatin (atorvastatin 40 mg Tab) [...] 90 tab(s), 0 Refill(s) \.br\ Pharmacy Information\.br\ [facility]: [address] [place] [id number] [phone]\.br\ Medications and Immunizations Administered\.br\ Given\.br\ triamcinolone acetonide [...] for choosing us for your care.\.br\ \.br\ [facility] Consenton 10-15-2023 Consent [id number] #1.00TIFF Normal [facility] Family Medicine Office/Clini c Noteon 10-15-2023 Family [...] anxiety, # 30 tab(s), Refills(s) 0, Pharmacy: [facility], 169.6, cm, 03/17/23 10:54:00 EDT, Height/Length Dosing, 62, kg, 03/17/23 10:54:00 EDT, Weight Dosing amoxicillin, 875 mg = 1 tab(s), Oral, BID, X 10 day(s), # 20 tab(s), Refills(s) 0, Pharmacy: [facility], 169.5, cm, 10/15/23 11:53:00 EDT, Height/Length [...] Cate MENARD, Enrique Beatty\.br\Date and Time Signed: 10/15/23 12:20 EDT Ambulatory [...] 11:20 AM EDT With: Enrique Austin Where: [place] [phone]- \.br\ Medications\.br\ What How Much When Instructions\.br\ Unchanged alprazolam (alprazolam 0.25 mg Tab) 1 Tablets By Mouth 3 times a day as needed for for anxiety Pickup at [facility]\.br\ Unchanged alprazolam (alprazolam 0.25 mg Tab) [...] 90 tab(s), 0 Refill(s) \.br\ Pharmacy Information\.br\ [facility]: [address] [place], [place] [phone]\.br\ Allergies\.br\ No Known Allergies\.br\ Problems\.br\ Ongoing - [...] [facility]/Clini c Noteon 10-08-2023 Family [...] days., # 45 tab(s), Refills(s) 0, Pharmacy: [facility], 169.5, cm, 09/02/23 11:42:00 EST, Height/Anuj... Orders: alprazolam, 0.25 mg = 1 tab(s), Oral, TID, PRN for anxiety, # 90 tab(s), Refills(s) 0, Pharmacy: [facility], 169.5, cm, 10/08/23 9:02:00 EDT, Height/Length [...] SARS-CoV-2 (COVID-19) mRNA-1273 vaccine 11/15/2020 Recorded Normal [facility] Comment on above: Result Comment: Elec tronically Signed By: Enrique Austin\.miladys\Date and Time Signed: 10/08/23 09:14 EDT Medication Consenton 024 Medication Consent [id number] #1.00TIFF Normal [facility] CBC W Auto Differential pane l (Bld)on 09-22-2023 Basophils (Bld) [#/Vol] 0.03 10*3/uL <0.11 k/uL [facility] Basophils/100 WBC (Bld) 0.7 % [facility] Differential cell count method Nom (Bld) Auto [facility] Eosinophils (Bld) [#/Vol] 0.05 10*3/uL <0.46 k/uL [facility] Eosinophils/100 WBC (Bld) 1.2 % [facility] Erythrocyte distribution width (RBC) [Ratio] 17.0 % High 11.5 - 15.0 % [facility] Hematocrit (Bld) [Volume fraction] 40.7 % 39.0 - 51.0 % [facility] Hemoglobin (Bld) [Mass/Vol] 13.5 g/dL 13.0 - 17.0 g/dL [facility] Immature granulocytes (Bld) [#/Vol] 0.03 10*3/uL <0.10 k/uL [facility] Immature granulocytes/100 WBC (Bld) 0.7 % [facility] Lymphocytes (Bld) [#/Vol] 0.87 10*3/uL Low 1.00 - 4.00 k/uL [facility] Lymphocytes/100 WBC (Bld) 21.6 % [facility] MCH (RBC) [Entitic mass] 30.2 pg 26.0 - 34.0 pg [facility] MCHC (RBC) [Mass/Vol] 33.2 g/dL 30.5 - 36.0 g/dL [facility] MCV (RBC) [Entitic vol] 91.1 fL 80.0 - 100.0 fL [facility] Monocytes (Bld) [#/Vol] 0.73 10*3/uL <0.87 k/uL [facility] Monocytes/100 WBC (Bld) 18.1 % [facility] Neutrophils (Bld) [#/Vol] 2.32 10*3/uL 1.45 - 7.50 k/uL [facility] Neutrophils/100 WBC (Bld) 57.7 % [facility] Nucleated RBC (Bld) [#/Vol] <0.01 k/uL [facility] Nucleated RBC/100 WBC (Bld) [Ratio] 0.0 /100 WBC [facility] Platelet mean volume (Bld) [Entitic vol] 11.0 fL 9.0 - 12.7 fL [facility] Platelets (Bld) [#/Vol] 180 10*3/uL 150 - 400 k/uL [facility] RBC (Bld) [#/Vol] 4.47 10*6/uL 4.20 - 6.00 m/uL [facility] WBC (Bld) [#/Vol] 4.03 10*3/uL 3.70 - 11.00 k/u L [facility] Basophils (Bld) [#/Vol] 0.03 10*3/uL Normal <0.11 [facility] Comment on above: Order Comment: Speci men Type: BLOOD SPECIMENOrdering Facility: [facility] Address: [address] [place] [address] Performed By: #### 5 7021-8 ####[facility] LABCLIA [id number] [place] [address] Basophils/100 WBC (Bld) 0.7 % Normal [facility] Comment on above: Order Comment: Speci men Type: BLOOD SPECIMENOrdering Facility: [facility] Address: [address] [place] [address] Performed By: #### 5 7021-8 ####[facility] LABCLIA [id number] [place] [address] Differential cell count method Nom (Bld) Auto Normal [facility] Comment on above: Order Comment: Speci men Type: BLOOD SPECIMENOrdering Facility: [facility] Address: [address] [place] [address] Performed By: #### 5 7021-8 ####[facility] LABCLIA [id number] [place] [address] Eosinophils (Bld) [#/Vol] 0.05 10*3/uL Normal <0.46 [facility] Comment on above: Order Comment: Speci men Type: BLOOD SPECIMENOrdering Facility: [facility] Address: [address] [place] [address] Performed By: #### 5 7021-8 ####[facility] LABCLIA [id number] [place] [address] Eosinophils/100 WBC (Bld) 1.2 % Normal [facility] Comment on above: Order Comment: Speci men Type: BLOOD SPECIMENOrdering Facility: [facility] Address: [address] [place] [address] Performed By: #### 5 7021-8 ####[facility] LABCLIA [id number] [place] [address] Erythrocyte distribution width (RBC) [Ratio] 17.0 % High 11.5-15.0 [facility] Comment on above: Order Comment: Speci men Type: BLOOD SPECIMENOrdering Facility: [facility] Address: [address] [place] [address] Performed By: #### 5 7021-8 ####[facility] LABCLIA [id number] [place] [address] Hematocrit (Bld) [Volume fraction] 40.7 % Normal 39.0-51.0 [facility] Comment on above: Order Comment: Speci men Type: BLOOD SPECIMENOrdering Facility: [facility] Address: [address] [place] [address] Performed By: #### 5 7021-8 ####[facility] LABIA [id number] [place] [address] Hemoglobin (Bld) [Mass/Vol] 13.5 g/dL Normal 13.0-17.0 [facility] Comment on above: Order Comment: Speci men Type: BLOOD SPECIMENOrdering Facility: [facility] Address: [address] [place] [address] Performed By: #### 5 7021-8 ####[facility] LABCLIA [id number] [place] [address] Immature granulocytes (Bld) [#/Vol] 0.03 10*3/uL Normal <0.10 [facility] Comment on above: Order Comment: Speci men Type: BLOOD SPECIMENOrdering Facility: [facility] Address: [address] [place] [address] Performed By: #### 5 7021-8 ####[facility] LABCLIA [id number] [place] [address] Immature granulocytes/100 WBC (Bld) 0.7 % Normal [facility] Comment on above: Order Comment: Speci men Type: BLOOD SPECIMENOrdering Facility: [facility] Address: [address] [place] [address] Performed By: #### 5 7021-8 ####[facility] LABCLIA [id number] [place] [address] Lymphocytes (Bld) [#/Vol] 0.87 10*3/uL Low 1.00-4.00 [facility] Comment on above: Order Comment: Speci men Type: BLOOD SPECIMENOrdering Facility: [facility] Address: [address] [place] [address] Performed By: #### 5 7021-8 ####[facility] LABCLIA [id number] [place] [address] Lymphocytes/100 WBC (Bld) 21.6 % Normal [facility] Comment on above: Order Comment: Speci men Type: BLOOD SPECIMENOrdering Facility: [facility] Address: [address] [place] [address] Performed By: #### 5 7021-8 ####[facility] LABCLIA [id number] [place] [address] MCH (RBC) [Entitic mass] 30.2 pg Normal 26.0-34.0 [facility] Comment on above: Order Comment: Speci men Type: BLOOD SPECIMENOrdering Facility: [facility] Address: [address] [place] [address] Performed By: #### 5 7021-8 ####[facility] LABIA [id number] [place] [address] MCHC (RBC) [Mass/Vol] 33.2 g/dL Normal 30.5-36.0 [facility] Comment on above: Order Comment: Speci men Type: BLOOD SPECIMENOrdering Facility: [facility] Address: [address] [place] [address] Performed By: #### 5 7021-8 ####[facility] LABCLIA [id number] [place] [address] MCV (RBC) [Entitic vol] 91.1 fL Normal 80.0-100.0 [facility] Comment on above: Order Comment: Speci men Type: BLOOD SPECIMENOrdering Facility: [facility] Address: [address] [place] [address] Performed By: #### 5 7021-8 ####[facility] LABCLIA [id number] [place] [address] Monocytes (Bld) [#/Vol] 0.73 10*3/uL Normal <0.87 [facility] Comment on above: Order Comment: Speci men Type: BLOOD SPECIMENOrdering Facility: [facility] Address: [address] [place] [address] Performed By: #### 5 7021-8 ####[facility] LABCLIA [id number] [place] [address] Monocytes/100 WBC (Bld) 18.1 % Normal [facility] Comment on above: Order Comment: Speci men Type: BLOOD SPECIMENOrdering Facility: [facility] Address: [address] [place] [address] Performed By: #### 5 7021-8 ####[facility] LABCLIA [id number] [place] [address] Neutrophils (Bld) [#/Vol] 2.32 10*3/uL Normal 1.45-7.50 [facility] Comment on above: Order Comment: Speci men Type: BLOOD SPECIMENOrdering Facility: [facility] Address: [address] [place] [address] Performed By: #### 5 7021-8 ####[facility] LABCLIA [id number] [place] [address] Neutrophils/100 WBC (Bld) 57.7 % Normal [facility] Comment on above: Order Comment: Speci men Type: BLOOD SPECIMENOrdering Facility: [facility] Address: [address] [place] [address] Performed By: #### 5 7021-8 ####[facility] LABCLIA [id number] [place] [address] Nucleated RBC (Bld) [#/Vol] 10*3/uL Normal <0.01 [facility] Comment on above: Order Comment: Speci men Type: BLOOD SPECIMENOrdering Facility: [facility] Address: [address] [place] [address] Performed By: #### 5 7021-8 ####[facility] LABCLIA [id number] [place] [address] Nucleated RBC/100 WBC (Bld) [Ratio] 0.0 /100 WBC Normal [facility] Comment on above: Order Comment: Speci men Type: BLOOD SPECIMENOrdering Facility: [facility] Address: [address] [place] [address] Performed By: #### 5 7021-8 ####[facility] LABCLIA [id number] [place] [address] Platelet mean volume (Bld) [Entitic vol] 11.0 fL Normal 9.0-12.7 [facility] Comment on above: Order Comment: Speci men Type: BLOOD SPECIMENOrdering Facility: [facility] Address: [address] [place] [address] Performed By: #### 5 7021-8 ####[facility] LABCLIA [id number] [place] [address] Platelets (Bld) [#/Vol] 180 10*3/uL Normal 150-400 [facility] Comment on above: Order Comment: Speci men Type: BLOOD SPECIMENOrdering Facility: [facility] Address: [address] [place], [place] [address] Performed By: #### 5 7021-8 ####[facility] LABCLIA [id number] [place] [address] RBC (Bld) [#/Vol] 4.47 10*6/uL Normal 4.20-6.00 [facility] Comment on above: Order Comment: Speci men Type: BLOOD SPECIMENOrdering Facility: [facility] Address: [address] [place] [address] Performed By: #### 5 7021-8 ####[facility] LABCLIA [id number] [place] [address] WBC (Bld) [#/Vol] 4.03 10*3/uL Normal 3.70-11.00 [facility] Comment on above: Order Comment: Speci men Type: BLOOD SPECIMENOrdering Facility: [facility] Address: [address] [place] [address] Performed By: #### 5 7021-8 ####[facility] LABCLIA [id number] [place] [address] CNCNPATEDon 09-22-2023 CNCNPATED Normal [facility] CNOVSPon 09-22-2023 CNOVSP Normal [facility] Comprehensive metabolic 2000 panelon 09-22-2023 Albumin [Mass/Vol] 4.4 g/dL 3.9 - 4.9 g/dL [facility] ALP [Catalytic activity/Vol] 47 U/L 38 - 113 U/L [facility] ALT [Catalytic activity/Vol] 19 U/L 10 - 54 U/L [facility] Anion gap [Moles/Vol] 15 mmol/L 9 - 18 mmol/L [facility] AST [Catalytic activity/Vol] 24 U/L 14 - 40 U/L [facility] Bilirubin [Mass/Vol] 0.4 mg/dL 0.2 - 1.3 mg/dL [facility] Calcium [Mass/Vol] 10.1 mg/dL 8.5 - 10.2 mg/dL [facility] Chloride [Moles/Vol] 100 mmol/L 97 - 105 mmol/L [facility] CO2 [Moles/Vol] 25 mmol/L 22 - 30 mmol/L [facility] Creatinine [Mass/Vol] 1.38 mg/dL High 0.73 - 1.22 mg/dL [facility] Estimated Glomerular Filtration Rate 56 mL/min/1.73m Low >=60 mL/min/1.73m [facility] Glucose [Mass/Vol] 107 mg/dL High 74 - 99 mg/dL [facility] Potassium [Moles/Vol] 4.3 mmol/L 3.7 - 5.1 mmol/L [facility] Protein [Mass/Vol] 7.6 g/dL 6.3 - 8.0 g/dL [facility] Sodium [Moles/Vol] 140 mmol/L 136 - 144 mmol/L [facility] Urea nitrogen [Mass/Vol] 30 mg/dL High 9 - 24 mg/dL [facility] Albumin [Mass/Vol] 4.4 g/dL Normal 3.9-4.9 [facility] Comment on above: Order Comment: Speci men Type: BLOOD SPECIMENOrdering Facility: [facility] Address: [address] [place] [address] Performed By: #### 2 4323-8 ####[facility] LABIA [id number] [place] [address] ALP [Catalytic activity/Vol] 47 U/L Normal 38-113 [facility] Comment on above: Order Comment: Speci men Type: BLOOD SPECIMENOrdering Facility: [facility] Address: [address] [place] [address] Performed By: #### 2 4323-8 ####[facility] LABCLIA [id number] [place] [address] ALT [Catalytic activity/Vol] 19 U/L Normal 10-54 [facility] Comment on above: Order Comment: Speci men Type: BLOOD SPECIMENOrdering Facility: [facility] Address: [address] [place] [address] Performed By: #### 2 4323-8 ####[facility] LABCLIA [id number] [place] [address] Anion gap [Moles/Vol] 15 mmol/L Normal 9-18 [facility] Comment on above: Order Comment: Speci men Type: BLOOD SPECIMENOrdering Facility: [facility] Address: [address] [place] [address] Performed By: #### 2 4323-8 ####[facility] LABCLIA [id number] [place] [address] AST [Catalytic activity/Vol] 24 U/L Normal 14-40 [facility] Comment on above: Order Comment: Speci men Type: BLOOD SPECIMENOrdering Facility: [facility] Address: [address] [place] [address] Performed By: #### 2 4323-8 ####[facility] LABCLIA [id number] [place] [address] Bilirubin [Mass/Vol] 0.4 mg/dL Normal 0.2-1.3 [facility] Comment on above: Order Comment: Speci men Type: BLOOD SPECIMENOrdering Facility: [facility] Address: [address] [place] [address] Performed By: #### 2 4323-8 ####[facility] LABCLIA [id number] [place] [address] Calcium [Mass/Vol] 10.1 mg/dL Normal 8.5-10.2 [facility] Comment on above: Order Comment: Speci men Type: BLOOD SPECIMENOrdering Facility: [facility] Address: [address] [place] [address] Performed By: #### 2 4323-8 ####[facility] LABCLIA [id number] [place] [address] Chloride [Moles/Vol] 100 mmol/L Normal 97-105 [facility] Comment on above: Order Comment: Speci men Type: BLOOD SPECIMENOrdering Facility: [facility] Address: [address] [place] [address] Performed By: #### 2 4323-8 ####[facility] LABCLIA [id number] [place] [address] CO2 [Moles/Vol] 25 mmol/L Normal 22-30 [facility] Comment on above: Order Comment: Speci men Type: BLOOD SPECIMENOrdering Facility: [facility] Address: [address] [place] [address] Performed By: #### 2 4323-8 ####[facility] LABCLIA [id number] [place] [address] Creatinine [Mass/Vol] 1.38 mg/dL High 0.73-1.22 [facility] Comment on above: Order Comment: Speci men Type: BLOOD SPECIMENOrdering Facility: [facility] Address: [address] [place] [address] Performed By: #### 2 4323-8 ####[facility] LABIA [id number] [place] [address] Creatinine and Glomerular filtration rate.predicted panel (S/P/Bld) 56 mL/min/1.73m??? Low >=60 [facility] Comment on above: Order Comment: Speci men Type: BLOOD SPECIMENOrdering Facility: [facility] Address: [address] [place] [address] Result Comment: Landy mated Glomerular Filtration Rate [...] actual GFR. Performed By: #### 2 4323-8 ####[facility] LABCLIA [id number] [place] [address] Glucose [Mass/Vol] 107 mg/dL High 74-99 [facility] Comment on above: Order Comment: Speci men Type: BLOOD SPECIMENOrdering Facility: [facility] Address: [address] [place] [address] Result Comment: The [place] Diabetes Association (ADA) provides guidance for cutoff [...] Standards of Medical Care in Diabetes 2016, [place] [employer]. Diabetes Care. 2016.39(Suppl 1). Performed By: #### 2 4323-8 ####[facility] LABCLIA [id number] [place] [address] Potassium [Moles/Vol] 4.3 mmol/L Normal 3.7-5.1 [facility] Comment on above: Order Comment: Speci men Type: BLOOD SPECIMENOrdering Facility: [facility] Address: [address] [id number] Performed By: #### 2 4323-8 ####[facility] LABCLIA [id number] [place] [address] Protein [Mass/Vol] 7.6 g/dL Normal 6.3-8.0 [facility] Comment on above: Order Comment: Speci men Type: BLOOD SPECIMENOrdering Facility: [facility] Address: [address] [place] [address] Performed By: #### 2 4323-8 ####[facility] LABCLIA [id number] [place] [address] Sodium [Moles/Vol] 140 mmol/L Normal 136-144 [facility] Comment on above: Order Comment: Speci men Type: BLOOD SPECIMENOrdering Facility: [facility] Address: [address] [place] [address] Performed By: #### 2 4323-8 ####[facility] LABCLIA [id number] [place] [address] Urea nitrogen [Mass/Vol] 30 mg/dL High 9-24 [facility] Comment on above: Order Comment: Speci men Type: BLOOD SPECIMENOrdering Facility: [facility] Address: [address] [place] [address] Performed By: #### 2 4323-8 ####[facility] LABCLIA [id number] [place] [address] T4/FTI/T4Uon 09-22-2023 FTI 7.1 ug/dL 5.3 - 10.8 ug/dL [facility] T4 [Mass/Vol] 6.1 ug/dL 5.5 - 10.2 ug/dL [facility] [place] T4 uptake [Mass/Vol] 0.86 Low 0.91 - 1.19 [facility] FTI 7.1 ug/dL Normal 5.3-10.8 [facility] Comment on above: Order Comment: Speci men Type: BLOOD SPECIMENOrdering Facility: [facility] Address: [address] [place] [address] Performed By: #### Lexi CHAN, 6-3 ####[facility] LABCLIA [id number] [place] [address] [place] T4 [Mass/Vol] 6.1 ug/dL Normal 5.5-10.2 [facility] Comment on above: Order Comment: Speci men Type: BLOOD SPECIMENOrdering Facility: [facility] Address: [address] [place], [place] [id number] Performed By: #### T 4FALEJANDRO, 6-3 ####[facility] LABCLIA [id number] [place] [id number] [place] T4 uptake [Mass/Vol] 0.86 Low 0.91-1.19 [facility] Comment on above: Order Comment: Speci men Type: BLOOD SPECIMENOrdering Facility: [facility] Address: [address] [place], [place] [address] [id number] Performed By: #### T 4FTI, 3016-3 ####[facility] LABCLIA [id number] [place] [id number] [place] TSH BLDon 09-22-2023 TSH Qn 14.500 m[IU]/L High 0.270 - 4.200 mIU/L C [facility] TSH SerPl-aCncon 09-22-2023 TSH Qn 14.500 m[IU]/L High 0.270-4.200 [facility] Comment on above: Order Comment: Speci men Type: BLOOD SPECIMENOrdering Facility: [facility] Address: [facility] [place] [address] Performed By: #### T 4FTI, 3016-3 ####[facility] LABCLIA [id number] [place] [address] [place] PET+CT Guidance for localiza tion of tumor of Skull base to mid-thigh-- W 18F-FDG Anoop 09-16-2023 IMPRESSION: HEAD/NECK: * Hypermetabolic focus in the [...] No FDG avid neoplastic process. Transcribe Date/Time: Sep 16 2023 12:16P Dictated by: JILL MARION MD This examination was interpreted and the report reviewed and electronically signed by: JILL MARION MD on Sep 16 2023 12:29PM EST Thank you for allowing us to participate in the care of your patient. Should there be any questions regarding this interpretation, please call [phone]. If you are unable to reach us at the number above, please feel free to contact [facility] eRadiology at [phone]. 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 INDICATION: Subsequent treatment strategy. TECHNIQUE: Radiotracer was administered IV followed about 60 minutes later by PET imaging from SKULL BASE THRU PROXIMAL THIGHS. Free breathing, low dose CT of the same body region was acquired without IV contrast for attenuation correction and anatomic localization. * CT Dose-Length Product (DLP): 165 mGy*cm * CT Dose Reduction Employed: Yes * Blood glucose (mg/dL): 107 * Dose (mCi): 7.2 * Radiotracer: F18-FDG COMPARISON: PET/CT 05/12/2023 RESULTS: REFERENCES: SUV reference values: * Blood pool (descending aorta) activity: SUVmax 2.1 * Background liver activity: SUVmax 3.2; SUVmean 2.5 Tile Finisher (topogram) images: No additional findings. Notes and limitations: * Standardized uptake values (SUVs) are normalized to patient body weight and indicate the highest activity concentration (SUVmax) at a given site of pathology but can vary due to multiple variables and are not absolute. * Physiologic/non-neop lastic uptake is common in the brain, extraocular muscles, oral cavity, tonsils, salivary glands, vocal cords, myocardium, liver, GI tract, urinary tract, and bone marrow among others. Certain regions and organ systems can have more intense physiologic activity, which could confound or obscure some pathology. * Unenhanced imaging is limited for the evaluation of some pathology and the acquired CT was not designed to produce, and cannot replace, diagnostic CT scan quality. HEAD AND NECK: Head (imaged): No abnormal uptake. Neck & Lymph Nodes: Focal asymmetrical increased uptake in the right tonsillar region (Max SUV 11.1, image 3/ decreased from prior max SUV 16.7). ENT correlation suggested. Thyroid: No abnormal uptake. CHEST: Note: PET-CT is often not sensitive for pulmonary nodules less than 8 mm, if present these would be optimally followed with diagnostic chest CT. Lungs & Airways: Surgical changes in the left upper lung. Mild activity in the anterior subpleural left lung (max SUV 2.8) likely inflammatory. Interval improvement in the bilateral lung nodules with decreased size and FDG activity. Residual mild to moderately hypermetabolic nodules. For example Hypermetabolic medial left infrahilar region nodule measures about 0.9 x 1.1 cm (max SUV 8, image 3, previously a larger densely hypermetabolic nodule with max SUV 26.5), right lower lobe nodule measures 0.9 x 1.4 cm (max SUV 2.6, image 3/84, previously a larger nodule with max SUV 6.2). Pleura & Pericardium: No abnormal uptake. Cardiovascular: No abnormal uptake. Mediastinum & Lymph Nodes: Mild uptake in the right hilum (max SUV 4.4 decreased from prior max SUV 14.9). Hypermetabolic heterogeneous left subpectoral soft tissue density measures 1.5 x 2.6 cm (max SUV 6.1, image 3/ decreased from prior max SUV 9.2). ABDOMEN AND PELVIS: Hepatobiliary: No abnormal uptake. Spleen: No abnormal uptake. Pancreas: No abnormal uptake. Adrenals: No abnormal uptake. Urinary Tract: No abnormal uptake. GI Tract: No abnormal uptake. Peritoneum: No abnormal uptake. Vasculature: No abnormal uptake. Retroperitoneum & Lymph Nodes: No abnormal uptake. Pelvis: No abnormal uptake. MUSCULOSKELETAL: Bones: No abnormal uptake. Torso & Soft Tissues: No abnormal uptake. 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 INDICATION: Subsequent treatment strategy. TECHNIQUE: Radiotracer was administered IV followed about 60 minutes later by PET imaging from SKULL BASE THRU PROXIMAL THIGHS. Free breathing, low dose CT of the same body region was acquired without IV contrast for attenuation correction and anatomic localization. * CT Dose-Length Product (DLP): 165 mGy*cm * CT Dose Reduction Employed: Yes * Blood glucose (mg/dL): 107 * Dose (mCi): 7.2 * Radiotracer: F18-FDG COMPARISON: PET/CT 05/12/2023 RESULTS: REFERENCES: SUV reference values: * Blood pool (descending aorta) activity: SUVmax 2.1 * Background liver activity: SUVmax 3.2; SUVmean 2.5 Tile Finisher (topogram) images: No additional findings. Notes and limitations: * Standardized uptake values (SUVs) are normalized to patient body weight and indicate the highest activity concentration (SUVmax) at a given site of pathology but can vary due to multiple variables and are not absolute. * Physiologic/non-neop lastic uptake is common in the brain, extraocular muscles, oral cavity, tonsils, salivary glands, vocal cords, myocardium, liver, GI tract, urinary tract, and bone marrow among others. Certain regions and organ systems can have more intense physiologic activity, which could confound or obscure some pathology. * Unenhanced imaging is limited for the evaluation of some pathology and the acquired CT was not designed to produce, and cannot replace, diagnostic CT scan quality. HEAD AND NECK: Head (imaged): No abnormal uptake. Neck & Lymph Nodes: Focal asymmetrical increased uptake in the right tonsillar region (Max SUV 11.1, image 10/09 decreased from prior max SUV 16.7). ENT correlation suggested. Thyroid: No abnormal uptake. CHEST: Note: PET-CT is often not sensitive for pulmonary nodules less than 8 mm, if present these would be optimally followed with diagnostic chest CT. Lungs & Airways: Surgical changes in the left upper lung. Mild activity in the anterior subpleural left lung (max SUV 2.8) likely inflammatory. Interval improvement in the bilateral lung nodules with decreased size and FDG activity. Residual mild to moderately hypermetabolic nodules. For example Hypermetabolic medial left infrahilar region nodule measures about 0.9 x 1.1 cm (max SUV 8, image , previously a larger densely hypermetabolic nodule with max SUV 26.5), right lower lobe nodule measures 0.9 x 1.4 cm (max SUV 2.6, image , previously a larger nodule with max SUV 6.2). Pleura & Pericardium: No abnormal uptake. Cardiovascular: No abnormal uptake. Mediastinum & Lymph Nodes: Mild uptake in the right hilum (max SUV 4.4 decreased from prior max SUV 14.9). Hypermetabolic heterogeneous left subpectoral soft tissue density measures 1.5 x 2.6 cm (max SUV 6.1, image 3/54 decreased from prior max SUV 9.2). ABDOMEN AND PELVIS: Hepatobiliary: No abnormal uptake. Spleen: No abnormal uptake. Pancreas: No abnormal uptake. Adrenals: No abnormal uptake. Urinary Tract: No abnormal uptake. GI Tract: No abnormal uptake. Peritoneum: No abnormal uptake. Vasculature: No abnormal uptake. Retroperitoneum & Lymph Nodes: No abnormal uptake. Pelvis: No abnormal uptake. MUSCULOSKELETAL: Bones: No abnormal uptake. Torso & Soft Tissues: No abnormal uptake. IMPRESSION IMPRESSION: HEAD/NECK: * Hypermetabolic focus in the [...] No FDG avid neoplastic process. Transcribe Date/Time: Sep 16 2023 12:16P Dictated by: JILL MARION MD This examination was interpreted and the report reviewed and electronically signed by: JILL MARION MD on Sep 16 2023 12:29PM EST Thank you for allowing us to participate in the care of your patient. Should there be any questions regarding this interpretation, please call [phone]. If you are unable to reach us at the number above, please feel free to contact [facility] (more content not included)... [facility] PET+CT Guidance for localiza tion of tumor of Skull base to mid-thigh-- W 18F-FDG IVOrdered By: [facility] Provider on 09-16-2023 [facility] GLUCOSE, BLOOD (POC)on 09-15 Glucose [Mass/Vol] 107 mg/dL Abnormal 74 - 99 mg/dL [facility] Comment on above: Location:[facility], [address] [place] [address] , [place], [place], [address] The Accu-Chek Inform II glucose meter has [...] blood gas instrument) in the above situations. Interpretation and review of laboratory results Abnormal [facility] NM PET/CT SKULL-THIGH SUBQon 09-15-2023 NM PET/CT SKULL-THIGH SUBQ Normal [facility] PET+CT Guidance for localiza tion of tumor of Skull base to mid-thigh-- W 18F-FDG Anoop 09-15-2023 Radiology Study observation (narrative) [facility] Physician Referralon 024 Physician Referral [id number] #[id number] Normal [facility] Ambulatory Visit Summaryon 0 09-02-2023 [...] 8:40 AM EDT With: Enrique Austin Where: [id number] [place] [address]- \.br\ Medications\.br\ What How Much When Why Instructions\.br\ New predniSONE (predniSONE 10 mg Tab) 1 Dose Separtor By Mouth As Directed Rash BMI 21.0-21.9, adult Former smoker Take 5 tabs by mouth daily x3 days, 4 daily x3 days, 3 daily x3 days, 2 daily x3 days, then 1 tab daily x3 days. Pickup at [facility]\.br\ Unchanged alprazolam (alprazolam 0.25 mg Tab) [...] 90 tab(s), 0 Refill(s) \.br\ Pharmacy Information\.br\ [facility]: [address] [place] [id number] [phone]\.br\ Allergies\.br\ No Known Allergies\.br\ Problems\.br\ Ongoing - [...] spread this week. pt found creams that buffer inflated pad ordered for him and applied it last [...] q12hr, # 20 cap(s), Refills(s) 0, Pharmacy: [facility], 169.5, cm, 08/20/23 11:52:00 EST, Height/Length Dosing, 63.1, kg, 08/20/23 11:52:00 EST, Weight Dosing predniSONE, 0 = 1 -, Oral, As Directed, Take 5 tabs by mouth daily x3 days, 4 daily x3 days, 3 daily x3 days, 2 daily x3 days, then 1 tab daily x3 days., # 45 tab(s), Refills(s) 0, Pharmacy: [facility], 169.5, cm, 09/02/23 11:42:00 EST, Height/Anuj... triamcinolone topical, 1 duong, Topical, BID, 20 gram, Refill(s) 0, [facility], 169.5, cm, 08/20/23 11:52:00 EST, Height/Length Dosing, 63.1, kg, 08/20/23 11:52:00 EST, Weight Dosing [facility] [place] Ref[place] 2. BMI 21.0-21.9, adult (Z68.21: Body mass index [BMI] 21.0-21.9, adult) BMI education complete Ordered: cephalexin, 500 mg = 1 cap(s), Oral, q12hr, # 20 cap(s), Refills(s) 0, Pharmacy: [facility], 169.5, cm, 08/20/23 11:52:00 EST, Height/Length Dosing, 63.1, kg, 08/20/23 11:52:00 EST, Weight Dosing predniSONE, 0 = 1 -, Oral, As Directed, Take 5 tabs by mouth daily x3 days, 4 daily x3 days, 3 daily x3 days, 2 daily x3 days, then 1 tab daily x3 days., # 45 tab(s), Refills(s) 0, Pharmacy: [facility], 169.5, cm, 09/02/23 11:42:00 EST, Height/Anuj... triamcinolone topical, 1 duong, Topical, BID, 20 gram, Refill(s) 0, [facility], 169.5, cm, 08/20/23 11:52:00 EST, Height/Length Dosing, 63.1, kg, 08/20/23 11:52:00 EST, Weight Dosing [facility] [place] Ref[place] 3. Former smoker (Z87.891: Personal history of nicotine dependence) continue not smoking Ordered: predniSONE, 0 = 1 -, Oral, As Directed, Take 5 tabs by mouth daily x3 days, 4 daily x3 days, 3 daily x3 days, 2 daily x3 days, then 1 tab daily x3 days., # 45 tab(s), Refills(s) 0, Pharmacy: [facility], 169.5, cm, 09/02/23 11:42:00 EST, Height/Anuj... [facility] [place] Orders: alprazolam, 0.25 mg = 1 tab(s), Oral, TID, PRN for anxiety, # 60 tab(s), Refills(s) 0, Pharmacy: [facility], 169.6, cm, 07/23/23 10:23:00 EST, Height/Length Dosing, 63, kg, 07/23/23 10:23:00 EST, Weight Dosing methylPREDNISolone, = 1 packet(s), Oral, Once, as directed on package labeling, # 21 tab(s), Refills(s) 0, Pharmacy: [facility], 169.6, cm, 07/23/23 10:23:00 EST, Height/Length Dosing, 63, kg, 07/23/23 10:23:00 EST, Weight Dosing Follow-up No qualifying data available Problem List/Past Medical History Ongoing Anxiety CAD (coronary artery disease) Chest congestion Emphysema lung Fluid level behind tympanic membrane of both ears Insomnia Lung cancer Rash Historical No qualifying data Procedure/Surgical History CABG (Coronary artery bypass grafting) planned (more content not included)... Normal [facility] Comment on above: Result Comment: Elec tronically Signed By: Cate MENARD, Enrique Beatty\.br\Date and Time Signed: 09/02/23 13:02 EST CNPNon 08-26-2023 CNPN Normal [facility] CBC W Auto Differential pane l (Bld)on 08-25-2023 Basophils (Bld) [#/Vol] 0.03 10*3/uL Normal <0.11 [facility] Comment on above: Order Comment: Speci men Type: BLOOD SPECIMENOrdering Facility: [facility] Address: [address] [place] [address] Performed By: #### 5 7021-8 ####[facility] LABCLIA [id number] [place] [address] Basophils/100 WBC (Bld) 0.6 % Normal [facility] Comment on above: Order Comment: Speci men Type: BLOOD SPECIMENOrdering Facility: [facility] Address: [address] [place] [address] Performed By: #### 5 7021-8 ####[facility] LABCLIA [id number] [place] [address] Differential cell count method Nom (Bld) Auto Normal [facility] Comment on above: Order Comment: Speci men Type: BLOOD SPECIMENOrdering Facility: [facility] Address: [address] [place] [address] Performed By: #### 5 7021-8 ####[facility] LABCLIA [id number] [place] [address] Eosinophils (Bld) [#/Vol] 0.16 10*3/uL Normal <0.46 [facility] Comment on above: Order Comment: Speci men Type: BLOOD SPECIMENOrdering Facility: [facility] Address: [address] [place] [address] Performed By: #### 5 7021-8 ####[facility] LABCLIA [id number] [place] [address] Eosinophils/100 WBC (Bld) 3.1 % Normal [facility] Comment on above: Order Comment: Speci men Type: BLOOD SPECIMENOrdering Facility: [facility] Address: [address] [place] [address] Performed By: #### 5 7021-8 ####[facility] LABCLIA [id number] [place] [address] Erythrocyte distribution width (RBC) [Ratio] 14.5 % Normal 11.5-15.0 [facility] Comment on above: Order Comment: Speci men Type: BLOOD SPECIMENOrdering Facility: [facility] Address: [address] [place] [address] Performed By: #### 5 7021-8 ####[facility] LABCLIA [id number] [place] [address] Hematocrit (Bld) [Volume fraction] 39.4 % Normal 39.0-51.0 [facility] Comment on above: Order Comment: Speci men Type: BLOOD SPECIMENOrdering Facility: [facility] Address: [address] [place] [address] Performed By: #### 5 7021-8 ####[facility] LABCLIA [id number] [place] [address] Hemoglobin (Bld) [Mass/Vol] 13.2 g/dL Normal 13.0-17.0 [facility] Comment on above: Order Comment: Speci men Type: BLOOD SPECIMENOrdering Facility: [facility] Address: [address] [place] [address] Performed By: #### 5 7021-8 ####[facility] LABCLIA [id number] [place] [address] Immature granulocytes (Bld) [#/Vol] 0.03 10*3/uL Normal <0.10 [facility] [facility] Comment on above: Order Comment: Speci men Type: BLOOD SPECIMENOrdering Facility: [facility] Address: [address] [place] [address] Performed By: #### 5 7021-8 ####[facility] LABCLIA [id number] [place] [address] Immature granulocytes/100 WBC (Bld) 0.6 % Normal [facility] Comment on above: Order Comment: Speci men Type: BLOOD SPECIMENOrdering Facility: [facility] Address: [address] [place] [address] Performed By: #### 5 7021-8 ####[facility] LABCLIA [id number] [place] [address] Lymphocytes (Bld) [#/Vol] 1.08 10*3/uL Normal 1.00-4.00 [facility] Comment on above: Order Comment: Speci men Type: BLOOD SPECIMENOrdering Facility: [facility] Address: [address] [place] [address] Performed By: #### 5 7021-8 ####[facility] LABCLIA [id number] [place] [address] Lymphocytes/100 WBC (Bld) 20.8 % Normal [facility] Comment on above: Order Comment: Speci men Type: BLOOD SPECIMENOrdering Facility: [facility] Address: [address] [place] [address] Performed By: #### 5 7021-8 ####[facility] LABCLIA [id number] [place] [address] MCH (RBC) [Entitic mass] 30.1 pg Normal 26.0-34.0 [facility] Comment on above: Order Comment: Speci men Type: BLOOD SPECIMENOrdering Facility: [facility] Address: [address] [place] [address] Performed By: #### 5 7021-8 ####[facility] LABCLIA [id number] [place] [address] MCHC (RBC) [Mass/Vol] 33.5 g/dL Normal 30.5-36.0 [facility] Comment on above: Order Comment: Speci men Type: BLOOD SPECIMENOrdering Facility: [facility] Address: [address] [place] [address] Performed By: #### 5 7021-8 ####[facility] LABCLIA [id number] [place] [address] MCV (RBC) [Entitic vol] 90.0 fL Normal 80.0-100.0 [facility] Comment on above: Order Comment: Speci men Type: BLOOD SPECIMENOrdering Facility: [facility] Address: [address] [place] [address] Performed By: #### 5 7021-8 ####[facility] LABCLIA [id number] [place] [address] Monocytes (Bld) [#/Vol] 0.58 10*3/uL Normal <0.87 [facility] Comment on above: Order Comment: Speci men Type: BLOOD SPECIMENOrdering Facility: [facility] Address: [address] [place] [address] Performed By: #### 5 7021-8 ####[facility] LABCLIA [id number] [place] [address] Monocytes/100 WBC (Bld) 11.2 % Normal [facility] Comment on above: Order Comment: Speci men Type: BLOOD SPECIMENOrdering Facility: [facility] Address: [address] [place] [address] Performed By: #### 5 7021-8 ####[facility] LABCLIA [id number] [place] [address] Neutrophils (Bld) [#/Vol] 3.31 10*3/uL Normal 1.45-7.50 [facility] Comment on above: Order Comment: Speci men Type: BLOOD SPECIMENOrdering Facility: [facility] Address: [address] [place] [address] Performed By: #### 5 7021-8 ####[facility] LABCLIA [id number] [place] [address] Neutrophils/100 WBC (Bld) 63.7 % Normal [facility] Comment on above: Order Comment: Speci men Type: BLOOD SPECIMENOrdering Facility: [facility] Address: [address] [place] [address] Performed By: #### 5 7021-8 ####[facility] LABCLIA [id number] [place] [address] Nucleated RBC (Bld) [#/Vol] 10*3/uL Normal <0.01 [facility] Comment on above: Order Comment: Speci men Type: BLOOD SPECIMENOrdering Facility: [facility] Address: [address] [place] [address] Performed By: #### 5 7021-8 ####[facility] LABCLIA [id number] [place] [address] Nucleated RBC/100 WBC (Bld) [Ratio] 0.0 /100 WBC Normal [facility] Comment on above: Order Comment: Speci men Type: BLOOD SPECIMENOrdering Facility: [facility] Address: [address] [place] [address] Performed By: #### 5 7021-8 ####[facility] LABCLIA [id number] [place] [address] Platelet mean volume (Bld) [Entitic vol] 11.2 fL Normal 9.0-12.7 [facility] Comment on above: Order Comment: Speci men Type: BLOOD SPECIMENOrdering Facility: [facility] Address: [address] [place] [address] Performed By: #### 5 7021-8 ####[facility] LABCLIA [id number] [place] [address] Platelets (Bld) [#/Vol] 206 10*3/uL Normal 150-400 [facility] Comment on above: Order Comment: Speci men Type: BLOOD SPECIMENOrdering Facility: [facility] Address: [address] [place] [address] Performed By: #### 5 7021-8 ####[facility] LABCLIA [id number] [place] [address] RBC (Bld) [#/Vol] 4.38 10*6/uL Normal 4.20-6.00 [facility] Comment on above: Order Comment: Speci men Type: BLOOD SPECIMENOrdering Facility: [facility] Address: [address] [place] [address] Performed By: #### 5 7021-8 ####[facility] LABIA [id number] [place] [address] WBC (Bld) [#/Vol] 5.19 10*3/uL Normal 3.70-11.00 [facility] Comment on above: Order Comment: Speci men Type: BLOOD SPECIMENOrdering Facility: [facility] Address: [address] [place] [address] Performed By: #### 5 7021-8 ####[facility] LABCLIA [id number] [place] [address] CNOVSPon 08-25-2023 CNOVSP Normal [facility] Comprehensive metabolic 2000 panelon 08-25-2023 Albumin [Mass/Vol] 4.4 g/dL Normal 3.9-4.9 [facility] Comment on above: Order Comment: Speci men Type: BLOOD SPECIMENOrdering Facility: [facility] Address: [address] [place] [address] Performed By: #### 2 4323-8 ####[facility] LABCLIA [id number] [place] [address] ALP [Catalytic activity/Vol] 70 U/L Normal 38-113 [facility] Comment on above: Order Comment: Speci men Type: BLOOD SPECIMENOrdering Facility: [facility] Address: [address] [place] [address] Performed By: #### 2 4323-8 ####[facility] LABCLIA [id number] [place] [address] ALT [Catalytic activity/Vol] 25 U/L Normal 10-54 [facility] Comment on above: Order Comment: Speci men Type: BLOOD SPECIMENOrdering Facility: [facility] Address: [address] [place] [address] Performed By: #### 2 4323-8 ####[facility] LABCLIA [id number] [place] [address] Anion gap [Moles/Vol] 13 mmol/L Normal 9-18 [facility] Comment on above: Order Comment: Speci men Type: BLOOD SPECIMENOrdering Facility: [facility] Address: [address] [place] [address] Performed By: #### 2 4323-8 ####[facility] LABCLIA [id number] [place] [address] AST [Catalytic activity/Vol] 33 U/L Normal 14-40 [facility] Comment on above: Order Comment: Speci men Type: BLOOD SPECIMENOrdering Facility: [facility] Address: [address] [place] [address] Performed By: #### 2 4323-8 ####[facility] LABCLIA [id number] [place] [address] Bilirubin [Mass/Vol] 0.3 mg/dL Normal 0.2-1.3 [facility] Comment on above: Order Comment: Speci men Type: BLOOD SPECIMENOrdering Facility: [facility] Address: [address] [place] [address] Performed By: #### 2 4323-8 ####[facility] LABCLIA [id number] [place] [address] Calcium [Mass/Vol] 10.2 mg/dL Normal 8.5-10.2 [facility] Comment on above: Order Comment: Speci men Type: BLOOD SPECIMENOrdering Facility: [facility] Address: [address] [place] [address] Performed By: #### 2 4323-8 ####[facility] LABCLIA [id number] [place] [address] Chloride [Moles/Vol] 102 mmol/L Normal 97-105 [facility] Comment on above: Order Comment: Speci men Type: BLOOD SPECIMENOrdering Facility: [facility] Address: [address] [place] [address] Performed By: #### 2 4323-8 ####[facility] LABCLIA [id number] [place] [address] CO2 [Moles/Vol] 25 mmol/L Normal 22-30 [facility] Comment on above: Order Comment: Speci men Type: BLOOD SPECIMENOrdering Facility: [facility] Address: [address] [place] [address] Performed By: #### 2 4323-8 ####[facility] LABCLIA [id number] [place] [address] Creatinine [Mass/Vol] 1.19 mg/dL Normal 0.73-1.22 [facility] Comment on above: Order Comment: Speci men Type: BLOOD SPECIMENOrdering Facility: [facility] Address: [address] [place] [address] Performed By: #### 2 4323-8 ####[facility] LABCLIA [id number] [place] [address] Creatinine and Glomerular filtration rate.predicted panel (S/P/Bld) 67 mL/min/1.73m??? Normal >=60 [facility] Comment on above: Order Comment: Speci men Type: BLOOD SPECIMENOrdering Facility: [facility] Address: [address] [id number] Result Comment: Landy mated Glomerular Filtration Rate [...] actual GFR. Performed By: #### 2 4323-8 ####[facility] LABCLIA [id number] [place] [address] Glucose [Mass/Vol] 99 mg/dL Normal 74-99 [facility] Comment on above: Order Comment: Ajay rausch Type: BLOOD SPECIMENOrdering Facility: [facility] Address: [address] [place] [address] Result Comment: The [place] [employer] (ADA) provides guidance for cutoff [...] Standards of Medical Care in Diabetes 2016, [place] [employer]. Diabetes Care. 2016.39(Suppl 1). Performed By: #### 2 4323-8 ####[facility] LABCLIA [id number] [place] [address] Potassium [Moles/Vol] 3.8 mmol/L Normal 3.7-5.1 [facility] Comment on above: Order Comment: Ajay rausch Type: BLOOD SPECIMENOrdering Facility: [facility] Address: [address] [id number] Performed By: #### 2 4323-8 ####[facility] LABCLIA [id number] [place] [address] Protein [Mass/Vol] 7.9 g/dL Normal 6.3-8.0 [facility] Comment on above: Order Comment: Speci men Type: BLOOD SPECIMENOrdering Facility: [facility] Address: [address] [place] [address] Performed By: #### 2 4323-8 ####[facility] LABCLIA [id number] [place] [address] Sodium [Moles/Vol] 140 mmol/L Normal 136-144 [facility] Comment on above: Order Comment: Speci men Type: BLOOD SPECIMENOrdering Facility: [facility] Address: [address] [place] [address] Performed By: #### 2 4323-8 ####[facility] LABCLIA [id number] [place] [address] Urea nitrogen [Mass/Vol] 33 mg/dL High 9-24 [facility] Comment on above: Order Comment: Speci men Type: BLOOD SPECIMENOrdering Facility: [facility] Address: [address] [place] [address] Performed By: #### 2 4323-8 ####[facility] LABCLIA [id number] [place] [address] T4/FTI/T4Uon 08-25-2023 FTI 2.0 ug/dL Low 5.3-10.8 [facility] Comment on above: Order Comment: Speci men Type: BLOOD SPECIMENOrdering Facility: [facility] Address: [address] [place], [place] [address] Performed By: #### 3 016-3, T4FTI ####[facility] LABCLIA [id number] [facility] [id number] [address] [place] T4 [Mass/Vol] 2.3 ug/dL Low 5.5-10.2 [facility] Comment on above: Order Comment: Speci men Type: BLOOD SPECIMENOrdering Facility: [facility] Address: [address] [place] [address] Performed By: #### 3 016-3, T4FTI ####[facility] LABIA [id number] [place] [address] [place] T4 uptake [Mass/Vol] 1.14 Normal 0.91-1.19 [facility] Comment on above: Order Comment: Speci men Type: BLOOD SPECIMENOrdering Facility: [facility] Address: [address] [place] [address] Performed By: #### 3 016-3, T4FTI ####[facility] LABIA [id number] [place] [address] [place] TSH SerPl-aCncon 08-25-2023 TSH Qn 109.000 m[IU]/L High 0.270-4.[address] [facility] Comment on above: Order Comment: Speci men Type: BLOOD SPECIMENOrdering Facility: [facility] Address: [address] [place] [address] Performed By: #### 3 016-3, T4FTI ####[facility] [id number] [place] [address] [place] Ambulatory Visit Summaryon 0 08-20-2023 Ambulatory Visit Summary CRISTAL GU :1955 Visit Date:08/20/2023 Ambulatory Visit Instructions Your Diagnosis Rash Lung cancer BMI 21.0-21.9, adult Your Care Team Attending Physician - Enrique Austin Primary Care Physician - Enrique Austni This Is Your Medications List alprazolam (alprazolam [...] 8:40 AM EDT With: Enrique Austin Where: [facility] Normal [address] \.br\ Medications\.br\ What How Much When Why Instructions\.br\ New cephalexin (cephalexin 500 mg Cap) 1 Capsules By Mouth Every 12 hours Rash Lung cancer BMI 21.0-21.9, adult Pickup at [facility]\.br\ New sotorasib (Lumakras 320 mg oral tablet) 90 tab(s), 0 Refill(s) \.br\ New triamcinolone topical (triamcinolone Top 0.5% Crm) 1 Application Topical 2 times a day Rash Lung cancer BMI 21.0-21.9, adult Pickup at [facility]\.br\ Unchanged alprazolam (alprazolam 0.25 mg [...] Tablets By Mouth Every day\.br\ Pharmacy Information\.br\ [facility]: [address] [place] [id number] [phone]\.br\ Allergies\.br\ No Known Allergies\.br\ Problems\.br\ Ongoing - [...] for choosing us for your care.\.br\ \.br\ [facility] [place] 08-20-2023 Consent [phone] [id number] #1.00TIFF Normal [facility] Family Medicine Office/Clini c Noteon [...] q12hr, # 20 cap(s), Refills(s) 0, Pharmacy: [facility], 169.5, cm, 08/20/23 11:52:00 EST, Height/Length Dosing, 63.1, kg, 08/20/23 11:52:00 EST, Weight Dosing triamcinolone, 60 mg = 1.5 mL, Injection, IntraARTICULAR, Once, Stop date 08/20/23 12:17:00 EST, Routine, Start date 08/20/23 12:17:00 EST, 08/20/23 12:17:00 EST triamcinolone topical, 1 duong, Topical, BID, 20 gram, Refill(s) 0, [facility], 169.5, cm, 08/20/23 11:52:00 EST, Height/Length Dosing, 63.1, kg, 08/20/23 11:52:00 EST, Weight Dosing 2. Lung cancer (C34.90: Malignant neoplasm of unspecified part of unspecified bronchus or lung) pt still taking oral treatment Ordered: cephalexin, 500 mg = 1 cap(s), Oral, q12hr, # 20 cap(s), Refills(s) 0, Pharmacy: [facility], 169.5, cm, 08/20/23 11:52:00 EST, Height/Length Dosing, 63.1, kg, 08/20/23 11:52:00 EST, Weight Dosing triamcinolone topical, 1 duong, Topical, BID, 20 gram, Refill(s) 0, [facility], 169.5, cm, 08/20/23 11:52:00 EST, Height/Length Dosing, 63.1, kg, 08/20/23 11:52:00 EST, Weight Dosing 3. BMI 21.0-21.9, adult (Z68.21: Body mass index [BMI] 21.0-21.9, adult) BMI education complete Ordered: cephalexin, 500 mg = 1 cap(s), Oral, q12hr, # 20 cap(s), Refills(s) 0, Pharmacy: [facility], 169.5, cm, 08/20/23 11:52:00 EST, Height/Length Dosing, 63.1, kg, 08/20/23 11:52:00 EST, Weight Dosing triamcinolone topical, 1 dunog, Topical, BID, 20 gram, Refill(s) 0, [facility], 169.5, cm, 08/20/23 11:52:00 EST, Height/Length [...] malignant neoplas (more content not included)... Normal [facility] Comment on above: Result Comment: Elec tronically Signed By: Enrique Austin\.br\Date and Time Signed: 08/20/23 12:47 EST CNOVon 08-15-2023 CNOV Normal [facility] CNPNon 08-11-2023 CNPN Normal [facility] CNOVon 08-08-2023 CNOV Normal [facility] CBC W Auto Differential pane l (Bld)on 07-28-2023 Basophils (Bld) [#/Vol] 0.03 10*3/uL Normal <0.11 [facility] Comment on above: Order Comment: Speci men Type: BLOOD SPECIMENOrdering Facility: [facility] Address: [address] [place] [address] Performed By: #### 5 7021-8 ####[facility] LABCLIA [id number] [place] [address] Basophils/100 WBC (Bld) 0.4 % Normal [facility] Comment on above: Order Comment: Speci men Type: BLOOD SPECIMENOrdering Facility: [facility] Address: [address] [place] [address] Performed By: #### 5 7021-8 ####[facility] LABCLIA [id number] [place] [address] Differential cell count method Nom (Bld) Auto Normal [facility] Comment on above: Order Comment: Speci men Type: BLOOD SPECIMENOrdering Facility: [facility] Address: [address] [place] [address] Performed By: #### 5 7021-8 ####[facility] LABCLIA [id number] [place] [address] Eosinophils (Bld) [#/Vol] 0.18 10*3/uL Normal <0.46 [facility] Comment on above: Order Comment: Speci men Type: BLOOD SPECIMENOrdering Facility: [facility] Address: [address] [place] [address] Performed By: #### 5 7021-8 ####[facility] LABCLIA [id number] [place] [address] Eosinophils/100 WBC (Bld) 2.6 % Normal [facility] Comment on above: Order Comment: Speci men Type: BLOOD SPECIMENOrdering Facility: [facility] Address: [address] [place] [address] Performed By: #### 5 7021-8 ####[facility] LABCLIA [id number] [place] [address] Erythrocyte distribution width (RBC) [Ratio] 13.2 % Normal 11.5-15.0 [facility] Comment on above: Order Comment: Speci men Type: BLOOD SPECIMENOrdering Facility: [facility] Address: [address] [place] [address] Performed By: #### 5 7021-8 ####[facility] LABCLIA [id number] [place] [address] Hematocrit (Bld) [Volume fraction] 35.5 % Low 39.0-51.0 [facility] Comment on above: Order Comment: Speci men Type: BLOOD SPECIMENOrdering Facility: [facility] Address: [address] [place] [address] Performed By: #### 5 7021-8 ####[facility] LABCLIA [id number] [place] [address] Hemoglobin (Bld) [Mass/Vol] 12.0 g/dL Low 13.0-17.0 [facility] Comment on above: Order Comment: Speci men Type: BLOOD SPECIMENOrdering Facility: [facility] Address: [address] [place] [address] Performed By: #### 5 7021-8 ####[facility] LABCLIA [id number] [place] [address] Immature granulocytes (Bld) [#/Vol] 0.04 10*3/uL Normal <0.10 [facility] Comment on above: Order Comment: Speci men Type: BLOOD SPECIMENOrdering Facility: [facility] Address: [address] [place] [address] Performed By: #### 5 7021-8 ####[facility] LABCLIA [id number] [place] [address] Immature granulocytes/100 WBC (Bld) 0.6 % Normal [facility] Comment on above: Order Comment: Speci men Type: BLOOD SPECIMENOrdering Facility: [facility] Address: [address] [place] [address] Performed By: #### 5 7021-8 ####[facility] LABCLIA [id number] [place] [address] Lymphocytes (Bld) [#/Vol] 1.31 10*3/uL Normal 1.00-4.00 [facility] Comment on above: Order Comment: Speci men Type: BLOOD SPECIMENOrdering Facility: [facility] Address: [address] [place] [address] Performed By: #### 5 7021-8 ####[facility] LABCLIA [id number] [place] [address] Lymphocytes/100 WBC (Bld) 19.2 % Normal [facility] Comment on above: Order Comment: Speci men Type: BLOOD SPECIMENOrdering Facility: [facility] Address: [address] [place] [address] Performed By: #### 5 7021-8 ####[facility] LABCLIA [id number] [place] [address] MCH (RBC) [Entitic mass] 30.4 pg Normal 26.0-34.0 [facility] Comment on above: Order Comment: Speci men Type: BLOOD SPECIMENOrdering Facility: [facility] Address: [address] [place] [address] Performed By: #### 5 7021-8 ####[facility] LABIA [id number] [place] [address] MCHC (RBC) [Mass/Vol] 33.8 g/dL Normal 30.5-36.0 [facility] Comment on above: Order Comment: Speci men Type: BLOOD SPECIMENOrdering Facility: [facility] Address: [address] [place] [address] Performed By: #### 5 7021-8 ####[facility] LABIA [id number] [place] [address] MCV (RBC) [Entitic vol] 89.9 fL Normal 80.0-100.0 [facility] Comment on above: Order Comment: Speci men Type: BLOOD SPECIMENOrdering Facility: [facility] Address: [address] [place] [address] Performed By: #### 5 7021-8 ####[facility] LABIA [id number] [place] [address] Monocytes (Bld) [#/Vol] 0.77 10*3/uL Normal <0.87 [facility] Comment on above: Order Comment: Speci men Type: BLOOD SPECIMENOrdering Facility: [facility] Address: [address] [place] [address] Performed By: #### 5 7021-8 ####[facility] LABCLIA [id number] [place] [address] Monocytes/100 WBC (Bld) 11.3 % Normal [facility] Comment on above: Order Comment: Speci men Type: BLOOD SPECIMENOrdering Facility: [facility] Address: [address] [place] [address] Performed By: #### 5 7021-8 ####[facility] LABCLIA [id number] [place] [address] Neutrophils (Bld) [#/Vol] 4.49 10*3/uL Normal 1.45-7.50 [facility] Comment on above: Order Comment: Speci men Type: BLOOD SPECIMENOrdering Facility: [facility] Address: [address] [place] [address] Performed By: #### 5 7021-8 ####[facility] LABCLIA [id number] [place] [address] Neutrophils/100 WBC (Bld) 65.9 % Normal [facility] Comment on above: Order Comment: Speci men Type: BLOOD SPECIMENOrdering Facility: [facility] Address: [address] [place] [address] Performed By: #### 5 7021-8 ####[facility] LABCLIA [id number] [place] [address] Nucleated RBC (Bld) [#/Vol] 10*3/uL Normal <0.01 [facility] Comment on above: Order Comment: Speci men Type: BLOOD SPECIMENOrdering Facility: [facility] Address: [address] [place] [address] Performed By: #### 5 7021-8 ####[facility] LABIA [id number] [place] [address] Nucleated RBC/100 WBC (Bld) [Ratio] 0.0 /100 WBC Normal [facility] Comment on above: Order Comment: Speci men Type: BLOOD SPECIMENOrdering Facility: [facility] Address: [address] [place] [address] Performed By: #### 5 7021-8 ####[facility] LABCLIA [id number] [place] [address] Platelet mean volume (Bld) [Entitic vol] 10.5 fL Normal 9.0-12.7 [facility] Comment on above: Order Comment: Speci men Type: BLOOD SPECIMENOrdering Facility: [facility] Address: [address] [place] [address] Performed By: #### 5 7021-8 ####[facility] LABCLIA [id number] [place] [address] Platelets (Bld) [#/Vol] 265 10*3/uL Normal 150-400 [facility] Comment on above: Order Comment: Speci men Type: BLOOD SPECIMENOrdering Facility: [facility] Address: [address] [place] [address] Performed By: #### 5 7021-8 ####[facility] LABCLIA [id number] [place] [address] RBC (Bld) [#/Vol] 3.95 10*6/uL Low 4.20-6.00 [facility] Comment on above: Order Comment: Speci men Type: BLOOD SPECIMENOrdering Facility: [facility] Address: [address] [place] [address] Performed By: #### 5 7021-8 ####[facility] LABCLIA [id number] [place] [address] WBC (Bld) [#/Vol] 6.82 10*3/uL Normal 3.70-11.00 [facility] Comment on above: Order Comment: Speci men Type: BLOOD SPECIMENOrdering Facility: [facility] Address: [address] [place] [address] Performed By: #### 5 7021-8 ####[facility] LABCLIA [id number] [place] [address] CNOVSPon 07-28-2023 CNOVSP Normal [facility] Ambulatory Visit Summaryon 0 07-23-2023 Ambulatory Visit [...] 9:00 AM EDT With: Enrique Austin Where: [facility] Normal [address] [place] [address]- \.br\ Medications\.br\ What How Much When Instructions\.br\ [...] [facility] Family Medicine Office/Clini c Dex 07-23-2023 Family Medicine Office/Clinic Note HPI Staff [...] Daily, 16 gram, Refill(s) 0, each nostril, [facility], 169.6, cm, 03/17/23 10:54:00 EDT, Height/Length Dosing, 62, kg, 03/17/23 10:54:00 EDT, Weight Dosing 2. Chest congestion (R09.89: Other specified symptoms and signs involving the circulatory and respiratory systems) pt having chest congestion body aches and coughing up yellow phlegm. 3. Anxiety (F41.9: Anxiety disorder, unspecified) meds refilled Ordered: fluticasone nasal, 2 spray(s), Nasal, Daily, 16 gram, Refill(s) 0, each nostril, [facility], 169.6, cm, 03/17/23 10:54:00 EDT, Height/Length Dosing, 62, kg, 03/17/23 10:54:00 EDT, Weight Dosing 4. BMI 21.0-21.9, adult (Z68.21: Body mass index [BMI] 21.0-21.9, adult) BMI education complete Ordered: fluticasone nasal, 2 spray(s), Nasal, Daily, 16 gram, Refill(s) 0, each nostril, [facility], 169.6, cm, 03/17/23 10:54:00 EDT, Height/Length Dosing, 62, kg, 03/17/23 10:54:00 EDT, Weight Dosing 5. Former smoker (Z87.891: Personal history of nicotine dependence) continue not smoking Ordered: fluticasone nasal, 2 spray(s), Nasal, Daily, 16 gram, Refill(s) 0, each nostril, [facility], 169.6, cm, 03/17/23 10:54:00 EDT, Height/Length Dosing, 62, kg, 03/17/23 10:54:00 EDT, Weight Dosing Orders: alprazolam, 0.25 mg = 1 tab(s), Oral, TID, PRN for anxiety, # 60 tab(s), Refills(s) 0, Pharmacy: [facility], 169.6, cm, 07/23/23 10:23:00 EST, Height/Length Dosing, 63, kg, 07/23/23 10:23:00 EST, Weight Dosing alprazolam, 0.25 mg = 1 tab(s), Oral, TID, PRN for anxiety, # 30 tab(s), Refills(s) 1, Pharmacy: [facility], 169.6, cm, 04/16/23 10:21:00 EDT, Height/Length Dosing, 63.8, kg, 04/16/23 10:30:00 EDT, Weight Dosing azithromycin, = 1 packet(s), Oral, As Directed, as directed on package labeling, X 5 day(s), # 6 tab(s), Refills(s) 0, Pharmacy: [facility], 169.6, cm, 07/23/23 10:23:00 EST, Height/Length Dosing, 63, kg, 07/23/23 10:23:00 EST, Weight Dosing methylPREDNISolone, = 1 packet(s), Oral, Once, as directed on package labeling, # 21 tab(s), Refills(s) 0, Pharmacy: [facility], 169.6, cm, 07/23/23 10:23:00 EST, Height/Length [...] 1 tab(s) (more content not included)... Normal [facility] Comment on above: Result Comment: Elec tronically Signed By: Enrique Austin\.br\Date and Time Signed: 07/23/23 10:41 EST CNPNon 07-18-2023 CNPN Normal [facility] Medication Consenton 023 Medication Consent [id number] Normal [facility] Ambulatory Visit Summaryon 1 09-09-2022 [...] mg Tab) fluticasone nasal (Flonase 0.05 mg/inh [place]) isosorbide mononitrate (isosorbide mononitrate 30 mg ER [...] 9:00 AM EDT With: Enrique Austin Where: [facility] [place] Normal [address] [place] [address]- \.br\ Medications\.br\ What How Much When Why [...] Unchanged fluticasone nasal (Flonase 0.05 mg/ inh [place]) 2 Sprays Nasal Inhalation Every day Rash [...] choosing us for your care.\.br\ \.br\ [facility] Medicine Office/Clini c Noteon 07-09-2023 Family Medicine [...] did get something rxed for it at [facility] ( amoxicillin) History of Present Illness pt [...] 1 tab(s), Oral, Daily Flonase 0.05 mg/inh [place], 2 spray(s), Nasal, Daily, Not taking isosorbide [...] Cate MENARD, Enrique Beatty\.br\Date and Time Signed: 07/09/23 10:27 EST CBC W Auto Differential pane l (Bld)on 06-30-2023 Basophils (Bld) [#/Vol] 0.03 10*3/uL Normal <0.11 [facility] Comment on above: Order Comment: Speci men Type: BLOOD SPECIMENOrdering Facility: [facility] Address: [address] [place] [address] Performed By: #### 5 7021-8 ####[facility] LABCLIA [id number] [place] [address] Basophils/100 WBC (Bld) 0.5 % Normal [facility] Comment on above: Order Comment: Speci men Type: BLOOD SPECIMENOrdering Facility: [facility] Address: [address] [place] [address] Performed By: #### 5 7021-8 ####[facility] LABCLIA [id number] [place] [address] Differential cell count method Nom (Bld) Auto Normal [facility] Comment on above: Order Comment: Speci men Type: BLOOD SPECIMENOrdering Facility: [facility] Address: [address] [place] [address] Performed By: #### 5 7021-8 ####[facility] LABCLIA [id number] [place] [address] Eosinophils (Bld) [#/Vol] 0.27 10*3/uL Normal <0.46 [facility] Comment on above: Order Comment: Speci men Type: BLOOD SPECIMENOrdering Facility: [facility] Address: [address] [place] [address] Performed By: #### 5 7021-8 ####[facility] LABCLIA [id number] [place] [address] Eosinophils/100 WBC (Bld) 4.5 % Normal [facility] Comment on above: Order Comment: Speci men Type: BLOOD SPECIMENOrdering Facility: [facility] Address: [address] [place] [address] Performed By: #### 5 7021-8 ####[facility] LABCLIA [id number] [place] [address] Erythrocyte distribution width (RBC) [Ratio] 12.7 % Normal 11.5-15.0 [facility] Comment on above: Order Comment: Speci men Type: BLOOD SPECIMENOrdering Facility: [facility] Address: [address] [place] [address] Performed By: #### 5 7021-8 ####[facility] LABCLIA [id number] [place] [address] Hematocrit (Bld) [Volume fraction] 34.6 % Low 39.0-51.0 [facility] Comment on above: Order Comment: Speci men Type: BLOOD SPECIMENOrdering Facility: [facility] Address: [address] [place] [address] Performed By: #### 5 7021-8 ####[facility] LABCLIA [id number] [place] [address] Hemoglobin (Bld) [Mass/Vol] 11.7 g/dL Low 13.0-17.0 [facility] Comment on above: Order Comment: Speci men Type: BLOOD SPECIMENOrdering Facility: [facility] Address: [address] [place] [address] Performed By: #### 5 7021-8 ####[facility] LABCLIA [id number] [place] [address] Immature granulocytes (Bld) [#/Vol] 0.03 10*3/uL Normal <0.10 [facility] Comment on above: Order Comment: Speci men Type: BLOOD SPECIMENOrdering Facility: [facility] Address: [address] [place] [address] Performed By: #### 5 7021-8 ####[facility] LABCLIA [id number] [place] [address] Immature granulocytes/100 WBC (Bld) 0.5 % Normal [facility] Comment on above: Order Comment: Speci men Type: BLOOD SPECIMENOrdering Facility: [facility] Address: [address] [place] [address] Performed By: #### 5 7021-8 ####[facility] LABIA [id number] [place] [address] Lymphocytes (Bld) [#/Vol] 1.32 10*3/uL Normal 1.00-4.00 [facility] Comment on above: Order Comment: Speci men Type: BLOOD SPECIMENOrdering Facility: [facility] Address: [address] [place] [address] Performed By: #### 5 7021-8 ####[facility] LABCLIA [id number] [place] [address] Lymphocytes/100 WBC (Bld) 22.0 % Normal [facility] Comment on above: Order Comment: Speci men Type: BLOOD SPECIMENOrdering Facility: [facility] Address: [address] [place] [address] Performed By: #### 5 7021-8 ####[facility] LABIA [id number] [place] [address] MCH (RBC) [Entitic mass] 31.0 pg Normal 26.0-34.0 [facility] Comment on above: Order Comment: Speci men Type: BLOOD SPECIMENOrdering Facility: [facility] Address: [address] [place] [address] Performed By: #### 5 7021-8 ####[facility] LABCLIA [id number] [place] [address] MCHC (RBC) [Mass/Vol] 33.8 g/dL Normal 30.5-36.0 [facility] Comment on above: Order Comment: Speci men Type: BLOOD SPECIMENOrdering Facility: [facility] Address: [address] [place] [address] Performed By: #### 5 7021-8 ####[facility] LABCLIA [id number] [place] [address] MCV (RBC) [Entitic vol] 91.5 fL Normal 80.0-100.0 [facility] Comment on above: Order Comment: Speci men Type: BLOOD SPECIMENOrdering Facility: [facility] Address: [address] [place] [address] Performed By: #### 5 7021-8 ####[facility] LABCLIA [id number] [place] [address] Monocytes (Bld) [#/Vol] 1.12 10*3/uL High <0.87 [facility] Comment on above: Order Comment: Speci men Type: BLOOD SPECIMENOrdering Facility: [facility] Address: [address] [place] [address] Performed By: #### 5 7021-8 ####[facility] LABCLIA [id number] [place] [address] Monocytes/100 WBC (Bld) 18.7 % Normal [facility] Comment on above: Order Comment: Speci men Type: BLOOD SPECIMENOrdering Facility: [facility] Address: [address] [place] [address] Performed By: #### 5 7021-8 ####[facility] LABCLIA [id number] [place] [address] Neutrophils (Bld) [#/Vol] 3.23 10*3/uL Normal 1.45-7.50 [facility] Comment on above: Order Comment: Speci men Type: BLOOD SPECIMENOrdering Facility: [facility] Address: [address] [place] [address] Performed By: #### 5 7021-8 ####[facility] LABCLIA [id number] [place] [address] Neutrophils/100 WBC (Bld) 53.8 % Normal [facility] Comment on above: Order Comment: Speci men Type: BLOOD SPECIMENOrdering Facility: [facility] Address: [address] [place] [address] Performed By: #### 5 7021-8 ####[facility] LABCLIA [id number] [place] [address] Nucleated RBC (Bld) [#/Vol] 10*3/uL Normal <0.01 [facility] Comment on above: Order Comment: Speci men Type: BLOOD SPECIMENOrdering Facility: [facility] Address: [address] [place] [address] Performed By: #### 5 7021-8 ####[facility] LABCLIA [id number] [place] [address] Nucleated RBC/100 WBC (Bld) [Ratio] 0.0 /100 WBC Normal [facility] Comment on above: Order Comment: Speci men Type: BLOOD SPECIMENOrdering Facility: [facility] Address: [address] [place] [address] Performed By: #### 5 7021-8 ####[facility] LABCLIA [id number] [place] [address] Platelet mean volume (Bld) [Entitic vol] 10.5 fL Normal 9.0-12.7 [facility] Comment on above: Order Comment: Speci men Type: BLOOD SPECIMENOrdering Facility: [facility] Address: [address] [place] [address] Performed By: #### 5 7021-8 ####[facility] LABCLIA [id number] [place] [address] Platelets (Bld) [#/Vol] 223 10*3/uL Normal 150-400 [facility] Comment on above: Order Comment: Speci men Type: BLOOD SPECIMENOrdering Facility: [facility] Address: [address] [place] [address] Performed By: #### 5 7021-8 ####[facility] LABIA [id number] [place] [address] RBC (Bld) [#/Vol] 3.78 10*6/uL Low 4.20-6.00 [facility] Comment on above: Order Comment: Speci men Type: BLOOD SPECIMENOrdering Facility: [facility] Address: [address] [place] [address] Performed By: #### 5 7021-8 ####[facility] [id number] [place] [address] WBC (Bld) [#/Vol] 6.00 10*3/uL Normal 3.70-11.00 [facility] Comment on above: Order Comment: Speci men Type: BLOOD SPECIMENOrdering Facility: [facility] Address: [address] [place] [address] Performed By: #### 5 7021-8 ####[facility] LABIA [id number] [place] [address] CNOVon 06-30-2023 CNOV Normal [facility] CNOVSPon 06-30-2023 CNOVSP Normal [facility] Comprehensive metabolic 2000 panelon 06-30-2023 Albumin [Mass/Vol] 4.0 g/dL Normal 3.9-4.9 [facility] Comment on above: Order Comment: Speci men Type: BLOOD SPECIMENOrdering Facility: [facility] Address: [address] [place] [address] Performed By: #### 2 4323-8 ####[facility] LABIA [id number] [place] [address] ALP [Catalytic activity/Vol] 79 U/L Normal 38-113 [facility] Comment on above: Order Comment: Speci men Type: BLOOD SPECIMENOrdering Facility: [facility] Address: [address] [place] [address] Performed By: #### 2 4323-8 ####[facility] LABCLIA [id number] [place] [address] ALT [Catalytic activity/Vol] 30 U/L Normal 10-54 [facility] Comment on above: Order Comment: Speci men Type: BLOOD SPECIMENOrdering Facility: [facility] Address: [address] [place] [address] Performed By: #### 2 4323-8 ####[facility] LABCLIA [id number] [place] [address] Anion gap [Moles/Vol] 12 mmol/L Normal 9-18 [facility] Comment on above: Order Comment: Speci men Type: BLOOD SPECIMENOrdering Facility: [facility] Address: [address] [place] [address] Performed By: #### 2 4323-8 ####[facility] LABCLIA [id number] [place] [address] AST [Catalytic activity/Vol] 36 U/L Normal 14-40 [facility] Comment on above: Order Comment: Speci men Type: BLOOD SPECIMENOrdering Facility: [facility] Address: [address] [place] [address] Performed By: #### 2 4323-8 ####[facility] LABCLIA [id number] [place] [address] Bilirubin [Mass/Vol] 0.5 mg/dL Normal 0.2-1.3 [facility] Comment on above: Order Comment: Speci men Type: BLOOD SPECIMENOrdering Facility: [facility] Address: [address] [place] [address] Performed By: #### 2 4323-8 ####[facility] LABCLIA [id number] [place] [address] Calcium [Mass/Vol] 9.6 mg/dL Normal 8.5-10.2 [facility] Comment on above: Order Comment: Speci men Type: BLOOD SPECIMENOrdering Facility: [facility] Address: [address] [place] [address] Performed By: #### 2 4323-8 ####[facility] LABCLIA [id number] [place] [address] Chloride [Moles/Vol] 101 mmol/L Normal 97-105 [facility] Comment on above: Order Comment: Speci men Type: BLOOD SPECIMENOrdering Facility: [facility] Address: [address] [place] [address] Performed By: #### 2 4323-8 ####[facility] LABCLIA [id number] [place] [address] CO2 [Moles/Vol] 26 mmol/L Normal 22-30 [facility] Comment on above: Order Comment: Speci men Type: BLOOD SPECIMENOrdering Facility: [facility] Address: [address] [place] [address] Performed By: #### 2 4323-8 ####[facility] LABCLIA [id number] [place] [address] Creatinine [Mass/Vol] 1.34 mg/dL High 0.73-1.22 [facility] Comment on above: Order Comment: Speci men Type: BLOOD SPECIMENOrdering Facility: [facility] Address: [address] [place] [address] Performed By: #### 2 4323-8 ####[facility] LABCLIA [id number] [place] [address] Creatinine and Glomerular filtration rate.predicted panel (S/P/Bld) 58 mL/min/1.73m??? Low >=60 [facility] Comment on above: Order Comment: Speci men Type: BLOOD SPECIMENOrdering Facility: [facility] Address: [address] [place] [address] Result Comment: Landy mated Glomerular Filtration Rate [...] actual GFR. Performed By: #### 2 4323-8 ####[facility] LABCLIA [id number] [place] [address] Glucose [Mass/Vol] 100 mg/dL High 74-99 [facility] Comment on above: Order Comment: Ajay men Type: BLOOD SPECIMENOrdering Facility: [facility] Address: [address] [place] [address] Result Comment: The [place] [employer] (ADA) provides guidance for cutoff [...] Standards of Medical Care in Diabetes 2016, [place] [employer]. Diabetes Care. 2016.39(Suppl 1). Performed By: #### 2 4323-8 ####[facility] LABCLIA [id number] [place] [address] Potassium [Moles/Vol] 4.0 mmol/L Normal 3.7-5.1 [facility] Comment on above: Order Comment: Ajay rausch Type: BLOOD SPECIMENOrdering Facility: [facility] Address: [address] [place] [address] Performed By: #### 2 4323-8 ####[facility] LABCLIA [id number] [place] [address] Protein [Mass/Vol] 7.4 g/dL Normal 6.3-8.0 [facility] Comment on above: Order Comment: Speci men Type: BLOOD SPECIMENOrdering Facility: [facility] Address: [address] [place] [address] Performed By: #### 2 4323-8 ####[facility] LABCLIA [id number] [place] [address] Sodium [Moles/Vol] 139 mmol/L Normal 136-144 [facility] Comment on above: Order Comment: Speci men Type: BLOOD SPECIMENOrdering Facility: [facility] Address: [address] [place] [address] Performed By: #### 2 4323-8 ####[facility] LABCLIA [id number] [place] [address] Urea nitrogen [Mass/Vol] 28 mg/dL High 9-24 [facility] Comment on above: Order Comment: Speci men Type: BLOOD SPECIMENOrdering Facility: [facility] Address: [address] [place] [address] Performed By: #### 2 4323-8 ####[facility] LABCLIA [id number] [place] [address] TSH SerPl-aCncon 06-30-2023 TSH Qn 2.840 m[IU]/L Normal 0.270-4.200 [facility] Comment on above: Order Comment: Speci men Type: BLOOD SPECIMENOrdering Facility: [facility] Address: [address] [place] [address] Performed By: #### 3 016-3 ####[facility] LABCLIA [id number] [place] [address] [place] CNOVon 06-23-2023 CNOV Normal [facility] CNOVon 06-13-2023 CNOV Normal [facility] CNOVon 06-10-2023 CNOV Normal [facility] CBC W Auto Differential pane l (Bld)on 06-02-2023 Basophils (Bld) [#/Vol] <0.11 k/uL [facility] Basophils/100 WBC (Bld) 0.4 % [facility] Differential cell count method Nom (Bld) Auto [facility] Eosinophils (Bld) [#/Vol] 0.08 10*3/uL <0.46 k/uL [facility] Eosinophils/100 WBC (Bld) 1.5 % [facility] Erythrocyte distribution width (RBC) [Ratio] 13.9 % 11.5 - 15.0 % [facility] Hematocrit (Bld) [Volume fraction] 37.5 % Low 39.0 - 51.0 % [facility] Hemoglobin (Bld) [Mass/Vol] 12.9 g/dL Low 13.0 - 17.0 g/dL [facility] Immature granulocytes (Bld) [#/Vol] 0.03 10*3/uL <0.10 k/uL [facility] Immature granulocytes/100 WBC (Bld) 0.6 % [facility] Lymphocytes (Bld) [#/Vol] 0.76 10*3/uL Low 1.00 - 4.00 k/uL [facility] Lymphocytes/100 WBC (Bld) 14.1 % [facility] MCH (RBC) [Entitic mass] 31.7 pg 26.0 - 34.0 pg [facility] MCHC (RBC) [Mass/Vol] 34.4 g/dL 30.5 - 36.0 g/dL [facility] MCV (RBC) [Entitic vol] 92.1 fL 80.0 - 100.0 fL [facility] Monocytes (Bld) [#/Vol] 0.67 10*3/uL <0.87 k/uL [facility] Monocytes/100 WBC (Bld) 12.4 % [facility] Neutrophils (Bld) [#/Vol] 3.84 10*3/uL 1.45 - 7.50 k/uL [facility] Neutrophils/100 WBC (Bld) 71.0 % [facility] Nucleated RBC (Bld) [#/Vol] <0.01 k/uL [facility] Nucleated RBC/100 WBC (Bld) [Ratio] 0.0 /100 WBC [facility] Platelet mean volume (Bld) [Entitic vol] 10.6 fL 9.0 - 12.7 fL [facility] Platelets (Bld) [#/Vol] 205 10*3/uL 150 - 400 k/uL [facility] RBC (Bld) [#/Vol] 4.07 10*6/uL Low 4.20 - 6.00 m/uL [facility] WBC (Bld) [#/Vol] 5.40 10*3/uL 3.70 - 11.00 k/u L [facility] Basophils (Bld) [#/Vol] 10*3/uL Normal <0.11 [facility] Comment on above: Order Comment: Speci men Type: BLOOD SPECIMENOrdering Facility: [facility] Address: [address] [place] [address] Performed By: #### 5 7021-8 ####[facility] LABCLIA [id number] [place] [address] Basophils/100 WBC (Bld) 0.4 % Normal [facility] Comment on above: Order Comment: Speci men Type: BLOOD SPECIMENOrdering Facility: [facility] Address: [address] [place] [address] Performed By: #### 5 7021-8 ####[facility] LABCLIA [id number] [place] [address] Differential cell count method Nom (Bld) Auto Normal [facility] Comment on above: Order Comment: Speci men Type: BLOOD SPECIMENOrdering Facility: [facility] Address: [address] [place] [address] Performed By: #### 5 7021-8 ####[facility] LABCLIA [id number] [place] [address] Eosinophils (Bld) [#/Vol] 0.08 10*3/uL Normal <0.46 [facility] Comment on above: Order Comment: Speci men Type: BLOOD SPECIMENOrdering Facility: [facility] Address: [address] [place] [address] Performed By: #### 5 7021-8 ####[facility] LABCLIA [id number] [place] [address] Eosinophils/100 WBC (Bld) 1.5 % Normal [facility] Comment on above: Order Comment: Speci men Type: BLOOD SPECIMENOrdering Facility: [facility] Address: [address] [place] [address] Performed By: #### 5 7021-8 ####[facility] LABCLIA [id number] [place] [address] Erythrocyte distribution width (RBC) [Ratio] 13.9 % Normal 11.5-15.0 [facility] Comment on above: Order Comment: Speci men Type: BLOOD SPECIMENOrdering Facility: [facility] Address: [address] [place] [address] Performed By: #### 5 7021-8 ####[facility] LABCLIA [id number] [place] [address] Hematocrit (Bld) [Volume fraction] 37.5 % Low 39.0-51.0 [facility] Comment on above: Order Comment: Speci men Type: BLOOD SPECIMENOrdering Facility: [facility] Address: [address] [place] [address] Performed By: #### 5 7021-8 ####[facility] LABCLIA [id number] [place] [address] Hemoglobin (Bld) [Mass/Vol] 12.9 g/dL Low 13.0-17.0 [facility] Comment on above: Order Comment: Speci men Type: BLOOD SPECIMENOrdering Facility: [facility] Address: [address] [place] [address] Performed By: #### 5 7021-8 ####[facility] LABCLIA [id number] [place] [address] Immature granulocytes (Bld) [#/Vol] 0.03 10*3/uL Normal <0.10 [facility] Comment on above: Order Comment: Speci men Type: BLOOD SPECIMENOrdering Facility: [facility] Address: [address] [place] [address] Performed By: #### 5 7021-8 ####[facility] LABCLIA [id number] [place] [address] Immature granulocytes/100 WBC (Bld) 0.6 % Normal [facility] Comment on above: Order Comment: Speci men Type: BLOOD SPECIMENOrdering Facility: [facility] Address: [address] [place] [address] Performed By: #### 5 7021-8 ####[facility] LABCLIA [id number] [place] [address] Lymphocytes (Bld) [#/Vol] 0.76 10*3/uL Low 1.00-4.00 [facility] Comment on above: Order Comment: Speci men Type: BLOOD SPECIMENOrdering Facility: [facility] Address: [address] [place] [address] Performed By: #### 5 7021-8 ####[facility] LABCLIA [id number] [place] [address] Lymphocytes/100 WBC (Bld) 14.1 % Normal [facility] Comment on above: Order Comment: Speci men Type: BLOOD SPECIMENOrdering Facility: [facility] Address: [address] [place] [address] Performed By: #### 5 7021-8 ####[facility] LABCLIA [id number] [place] [address] MCH (RBC) [Entitic mass] 31.7 pg Normal 26.0-34.0 [facility] Comment on above: Order Comment: Speci men Type: BLOOD SPECIMENOrdering Facility: [facility] Address: [address] [place] [address] Performed By: #### 5 7021-8 ####[facility] LABCLIA [id number] [place] [address] MCHC (RBC) [Mass/Vol] 34.4 g/dL Normal 30.5-36.0 [facility] Comment on above: Order Comment: Speci men Type: BLOOD SPECIMENOrdering Facility: [facility] Address: [address] [place] [address] Performed By: #### 5 7021-8 ####[facility] LABCLIA [id number] [place] [address] MCV (RBC) [Entitic vol] 92.1 fL Normal 80.0-100.0 [facility] Comment on above: Order Comment: Speci men Type: BLOOD SPECIMENOrdering Facility: [facility] Address: [address] [place] [address] Performed By: #### 5 7021-8 ####[facility] LABCLIA [id number] [place] [address] Monocytes (Bld) [#/Vol] 0.67 10*3/uL Normal <0.87 [facility] Comment on above: Order Comment: Speci men Type: BLOOD SPECIMENOrdering Facility: [facility] Address: [address] [place] [address] Performed By: #### 5 7021-8 ####[facility] LABCLIA [id number] [place] [address] Monocytes/100 WBC (Bld) 12.4 % Normal [facility] Comment on above: Order Comment: Speci men Type: BLOOD SPECIMENOrdering Facility: [facility] Address: [address] [place] [address] Performed By: #### 5 7021-8 ####[facility] LABCLIA [id number] [place] [address] Neutrophils (Bld) [#/Vol] 3.84 10*3/uL Normal 1.45-7.50 [facility] Comment on above: Order Comment: Speci men Type: BLOOD SPECIMENOrdering Facility: [facility] Address: [address] [place] [address] Performed By: #### 5 7021-8 ####[facility] LABCLIA [id number] [place] [address] Neutrophils/100 WBC (Bld) 71.0 % Normal [facility] Comment on above: Order Comment: Speci men Type: BLOOD SPECIMENOrdering Facility: [facility] Address: [address] [place] [address] Performed By: #### 5 7021-8 ####[facility] LABCLIA [id number] [place] [address] Nucleated RBC (Bld) [#/Vol] 10*3/uL Normal <0.01 [facility] Comment on above: Order Comment: Speci men Type: BLOOD SPECIMENOrdering Facility: [facility] Address: [address] [place] [address] Performed By: #### 5 7021-8 ####[facility] LABCLIA [id number] [place] [address] Nucleated RBC/100 WBC (Bld) [Ratio] 0.0 /100 WBC Normal [facility] Comment on above: Order Comment: Speci men Type: BLOOD SPECIMENOrdering Facility: [facility] Address: [address] [place] [address] Performed By: #### 5 7021-8 ####[facility] LABCLIA [id number] [place] [address] Platelet mean volume (Bld) [Entitic vol] 10.6 fL Normal 9.0-12.7 [facility] Comment on above: Order Comment: Speci men Type: BLOOD SPECIMENOrdering Facility: [facility] Address: [address] [place] [address] Performed By: #### 5 7021-8 ####[facility] LABIA [id number] [place] [address] Platelets (Bld) [#/Vol] 205 10*3/uL Normal 150-400 [facility] Comment on above: Order Comment: Speci men Type: BLOOD SPECIMENOrdering Facility: [facility] Address: [address] [place] [address] [place] [address] Performed By: #### 5 7021-8 ####[facility] LABCLIA [id number] [place] [address] RBC (Bld) [#/Vol] 4.07 10*6/uL Low 4.20-6.00 [facility] Comment on above: Order Comment: Speci men Type: BLOOD SPECIMENOrdering Facility: [facility] Address: [address] [place] [address] Performed By: #### 5 7021-8 ####[facility] LABCLIA [id number] [place] [address] WBC (Bld) [#/Vol] 5.40 10*3/uL Normal 3.70-11.00 [facility] Comment on above: Order Comment: Speci men Type: BLOOD SPECIMENOrdering Facility: [facility] Address: [address] [place] [id number] Performed By: #### 5 7021-8 ####[facility] LABCLIA [id number] [place] [address] CNOVSPon 06-02-2023 CNOVSP Normal [facility] Comprehensive metabolic 2000 panelon 06-02-2023 Albumin [Mass/Vol] 4.3 g/dL 3.9 - 4.9 g/dL [facility] ALP [Catalytic activity/Vol] 58 U/L 38 - 113 U/L [facility] ALT [Catalytic activity/Vol] 14 U/L 10 - 54 U/L [facility] Anion gap [Moles/Vol] 10 mmol/L 9 - 18 mmol/L [facility] AST [Catalytic activity/Vol] 18 U/L 14 - 40 U/L [facility] Bilirubin [Mass/Vol] 0.5 mg/dL 0.2 - 1.3 mg/dL [facility] Calcium [Mass/Vol] 9.8 mg/dL 8.5 - 10.2 mg/dL [facility] Chloride [Moles/Vol] 102 mmol/L 97 - 105 mmol/L [facility] CO2 [Moles/Vol] 26 mmol/L 22 - 30 mmol/L [facility] Creatinine [Mass/Vol] 0.90 mg/dL 0.73 - 1.22 mg/dL [facility] Estimated Glomerular Filtration Rate 94 mL/min/1.73m >=60 mL/min/1.73m [facility] Glucose [Mass/Vol] 117 mg/dL High 74 - 99 mg/dL [facility] Potassium [Moles/Vol] 3.5 mmol/L Low 3.7 - 5.1 mmol/L [facility] Protein [Mass/Vol] 7.7 g/dL 6.3 - 8.0 g/dL [facility] Sodium [Moles/Vol] 138 mmol/L 136 - 144 mmol/L [facility] Urea nitrogen [Mass/Vol] 24 mg/dL 9 - 24 mg/dL [facility] Albumin [Mass/Vol] 4.3 g/dL Normal 3.9-4.9 [facility] Comment on above: Order Comment: Speci men Type: BLOOD SPECIMENOrdering Facility: [facility] Address: [address] [place] [address] Performed By: #### 2 4323-8 ####[facility] LABCLIA [id number] [place] [address] ALP [Catalytic activity/Vol] 58 U/L Normal 38-113 [facility] Comment on above: Order Comment: Speci men Type: BLOOD SPECIMENOrdering Facility: [facility] Address: [address] [place] [address] Performed By: #### 2 4323-8 ####[facility] LABCLIA [id number] [place] [address] ALT [Catalytic activity/Vol] 14 U/L Normal 10-54 [facility] Comment on above: Order Comment: Speci men Type: BLOOD SPECIMENOrdering Facility: [facility] Address: [address] [place] [address] Performed By: #### 2 4323-8 ####[facility] LABCLIA [id number] [place] [address] Anion gap [Moles/Vol] 10 mmol/L Normal 9-18 [facility] Comment on above: Order Comment: Speci men Type: BLOOD SPECIMENOrdering Facility: [facility] Address: [address] [place] [address] Performed By: #### 2 4323-8 ####[facility] LABCLIA [id number] [place] [address] AST [Catalytic activity/Vol] 18 U/L Normal 14-40 [facility] Comment on above: Order Comment: Speci men Type: BLOOD SPECIMENOrdering Facility: [facility] Address: [address] [place] [address] Performed By: #### 2 4323-8 ####[facility] LABCLIA [id number] [place] [address] Bilirubin [Mass/Vol] 0.5 mg/dL Normal 0.2-1.3 [facility] Comment on above: Order Comment: Speci men Type: BLOOD SPECIMENOrdering Facility: [facility] Address: [address] [place] [address] Performed By: #### 2 4323-8 ####[facility] LABCLIA [id number] [place] [address] Calcium [Mass/Vol] 9.8 mg/dL Normal 8.5-10.2 [facility] Comment on above: Order Comment: Speci men Type: BLOOD SPECIMENOrdering Facility: [facility] Address: [address] [place] [address] Performed By: #### 2 4323-8 ####[facility] LABCLIA [id number] [place] [address] Chloride [Moles/Vol] 102 mmol/L Normal 97-105 [facility] Comment on above: Order Comment: Speci men Type: BLOOD SPECIMENOrdering Facility: [facility] Address: [address] [place] [address] Performed By: #### 2 4323-8 ####[facility] LABCLIA [id number] [place] [address] CO2 [Moles/Vol] 26 mmol/L Normal 22-30 [facility] Comment on above: Order Comment: Speci men Type: BLOOD SPECIMENOrdering Facility: [facility] Address: [address] [place] [address] Performed By: #### 2 4323-8 ####[facility] LABCLIA [id number] [place] [address] Creatinine [Mass/Vol] 0.90 mg/dL Normal 0.73-1.22 [facility] Comment on above: Order Comment: Speci men Type: BLOOD SPECIMENOrdering Facility: [facility] Address: [address] [place] [address] Performed By: #### 2 4323-8 ####[facility] LABCLIA [id number] [place] [address] Creatinine and Glomerular filtration rate.predicted panel (S/P/Bld) 94 mL/min/1.73m??? Normal >=60 [facility] Comment on above: Order Comment: Speci men Type: BLOOD SPECIMENOrdering Facility: [facility] Address: [address] [place] [address] Result Comment: Landy mated Glomerular Filtration Rate [...] actual GFR. Performed By: #### 2 4323-8 ####[facility] LABCLIA [id number] [place] [address] Glucose [Mass/Vol] 117 mg/dL High 74-99 [facility] Comment on above: Order Comment: Speci men Type: BLOOD SPECIMENOrdering Facility: [facility] Address: [address] [place] [address] Result Comment: The [place] [employer] (ADA) provides guidance for cutoff [...] Standards of Medical Care in Diabetes 2016, [place] [employer]. Diabetes Care. 2016.39(Suppl 1). Performed By: #### 2 4323-8 ####[facility] LABCLIA [id number] [place] [address] Potassium [Moles/Vol] 3.5 mmol/L Low 3.7-5.1 [facility] Comment on above: Order Comment: Speci men Type: BLOOD SPECIMENOrdering Facility: [facility] Address: [address] [place] [address] Performed By: #### 2 4323-8 ####[facility] LABCLIA [id number] [place] [address] Protein [Mass/Vol] 7.7 g/dL Normal 6.3-8.0 [facility] Comment on above: Order Comment: Speci men Type: BLOOD SPECIMENOrdering Facility: [facility] Address: [address] [place] [address] Performed By: #### 2 4323-8 ####[facility] LABCLIA [id number] [place] [address] Sodium [Moles/Vol] 138 mmol/L Normal 136-144 [facility] Comment on above: Order Comment: Speci men Type: BLOOD SPECIMENOrdering Facility: [facility] Address: [address] [place] [address] Performed By: #### 2 4323-8 ####[facility] LABCLIA [id number] [place] [address] Urea nitrogen [Mass/Vol] 24 mg/dL Normal 9-24 [facility] Comment on above: Order Comment: Speci men Type: BLOOD SPECIMENOrdering Facility: [facility] Address: [address] [place] [address] Performed By: #### 2 4323-8 ####[facility] LABCLIA [id number] [place] [address] CNCNPATEDon 05-30-2023 CNCNPATED Normal [facility] CNOVon 05-30-2023 CNOV Normal [facility] CNOVon 05-27-2023 CNOV Normal [facility] CNCNPATEDon 05-20-2023 CNCNPATED Normal [facility] CNPNon 05-20-2023 CNPN Normal [facility] CNPNon 05-19-2023 CNPN Normal [facility] CNOVon 05-16-2023 CNOV Normal [facility] CNPNon 05-15-2023 CNPN Normal [facility] CNPNon 05-14-2023 CNPN Normal [facility] CBC W Auto Differential pane l (Bld)on 05-13-2023 Basophils (Bld) [#/Vol] 10*3/uL Normal <0.11 [facility] Comment on above: Order Comment: Speci men Type: BLOOD SPECIMENOrdering Facility: [facility] Address: [place] [address] Performed By: #### 5 7021-8 ####[facility] LABCLIA [id number] [place] [address] Basophils/100 WBC (Bld) 0.3 % Normal [facility] Comment on above: Order Comment: Speci men Type: BLOOD SPECIMENOrdering Facility: [facility] Address: [address] [place] [address] Performed By: #### 5 7021-8 ####[facility] LABCLIA [id number] [place] [address] Differential cell count method Nom (Bld) Auto Normal [facility] Comment on above: Order Comment: Speci men Type: BLOOD SPECIMENOrdering Facility: [facility] Address: [address] [place] [address] Performed By: #### 5 7021-8 ####[facility] LABCLIA [id number] [place] [address] Eosinophils (Bld) [#/Vol] 0.14 10*3/uL Normal <0.46 [facility] Comment on above: Order Comment: Speci men Type: BLOOD SPECIMENOrdering Facility: [facility] Address: [address] [place] [address] Performed By: #### 5 7021-8 ####[facility] LABCLIA [id number] [place] [address] Eosinophils/100 WBC (Bld) 2.3 % Normal [facility] Comment on above: Order Comment: Speci men Type: BLOOD SPECIMENOrdering Facility: [facility] Address: [address] [place] [address] Performed By: #### 5 7021-8 ####[facility] LABCLIA [id number] [place] [address] Erythrocyte distribution width (RBC) [Ratio] 13.7 % Normal 11.5-15.0 [facility] Comment on above: Order Comment: Speci men Type: BLOOD SPECIMENOrdering Facility: [facility] Address: [address] [place] [address] Performed By: #### 5 7021-8 ####[facility] LABCLIA [id number] [place] [address] Hematocrit (Bld) [Volume fraction] 37.6 % Low 39.0-51.0 [facility] Comment on above: Order Comment: Speci men Type: BLOOD SPECIMENOrdering Facility: [facility] Address: [address] [place] [address] Performed By: #### 5 7021-8 ####[facility] LABCLIA [id number] [place] [address] Hemoglobin (Bld) [Mass/Vol] 13.0 g/dL Normal 13.0-17.0 [facility] Comment on above: Order Comment: Speci men Type: BLOOD SPECIMENOrdering Facility: [facility] Address: [address] [place] [address] Performed By: #### 5 7021-8 ####[facility] LABCLIA [id number] [place] [address] Immature granulocytes (Bld) [#/Vol] 0.03 10*3/uL Normal <0.10 [facility] Comment on above: Order Comment: Speci men Type: BLOOD SPECIMENOrdering Facility: [facility] Address: [address] [place] [address] Performed By: #### 5 7021-8 ####[facility] LABCLIA [id number] [place] [address] Immature granulocytes/100 WBC (Bld) 0.5 % Normal [facility] Comment on above: Order Comment: Speci men Type: BLOOD SPECIMENOrdering Facility: [facility] Address: [address] [place] [address] Performed By: #### 5 7021-8 ####[facility] LABCLIA [id number] [place] [address] Lymphocytes (Bld) [#/Vol] 1.01 10*3/uL Normal 1.00-4.00 [facility] Comment on above: Order Comment: Speci men Type: BLOOD SPECIMENOrdering Facility: [facility] Address: [address] [place] [address] Performed By: #### 5 7021-8 ####[facility] LABCLIA [id number] [place] [address] Lymphocytes/100 WBC (Bld) 16.4 % Normal [facility] Comment on above: Order Comment: Speci men Type: BLOOD SPECIMENOrdering Facility: [facility] Address: [address] [place] [address] Performed By: #### 5 7021-8 ####[facility] LABCLIA [id number] [place] [address] MCH (RBC) [Entitic mass] 31.9 pg Normal 26.0-34.0 [facility] Comment on above: Order Comment: Speci men Type: BLOOD SPECIMENOrdering Facility: [facility] Address: [address] [place] [address] Performed By: #### 5 7021-8 ####[facility] LABCLIA [id number] [place] [address] MCHC (RBC) [Mass/Vol] 34.6 g/dL Normal 30.5-36.0 [facility] Comment on above: Order Comment: Speci men Type: BLOOD SPECIMENOrdering Facility: [facility] Address: [address] [place] [address] Performed By: #### 5 7021-8 ####[facility] LABCLIA [id number] [place] [address] MCV (RBC) [Entitic vol] 92.2 fL Normal 80.0-100.0 [facility] Comment on above: Order Comment: Speci men Type: BLOOD SPECIMENOrdering Facility: [facility] Address: [address] [place] [address] Performed By: #### 5 7021-8 ####[facility] LABCLIA [id number] [place] [address] Monocytes (Bld) [#/Vol] 0.86 10*3/uL Normal <0.87 [facility] Comment on above: Order Comment: Speci men Type: BLOOD SPECIMENOrdering Facility: [facility] Address: [address] [place] [address] Performed By: #### 5 7021-8 ####[facility] LABCLIA [id number] [place] [address] Monocytes/100 WBC (Bld) 14.0 % Normal [facility] Comment on above: Order Comment: Speci men Type: BLOOD SPECIMENOrdering Facility: [facility] Address: [address] [place] [address] Performed By: #### 5 7021-8 ####[facility] LABCLIA [id number] [place] [address] Neutrophils (Bld) [#/Vol] 4.09 10*3/uL Normal 1.45-7.50 [facility] Comment on above: Order Comment: Speci men Type: BLOOD SPECIMENOrdering Facility: [facility] Address: [address] [place] [address] Performed By: #### 5 7021-8 ####[facility] LABCLIA [id number] [place] [address] Neutrophils/100 WBC (Bld) 66.5 % Normal [facility] Comment on above: Order Comment: Speci men Type: BLOOD SPECIMENOrdering Facility: [facility] Address: [address] [place] [address] Performed By: #### 5 7021-8 ####[facility] LABCLIA [id number] [place] [address] Nucleated RBC (Bld) [#/Vol] 10*3/uL Normal <0.01 [facility] Comment on above: Order Comment: Speci men Type: BLOOD SPECIMENOrdering Facility: [facility] Address: [address] [place] [address] Performed By: #### 5 7021-8 ####[facility] LABCLIA [id number] [place] [address] Nucleated RBC/100 WBC (Bld) [Ratio] 0.0 /100 WBC Normal [facility] Comment on above: Order Comment: Speci men Type: BLOOD SPECIMENOrdering Facility: [facility] Address: [address] [place] [address] Performed By: #### 5 7021-8 ####[facility] LABCLIA [id number] [place] [address] Platelet mean volume (Bld) [Entitic vol] 11.4 fL Normal 9.0-12.7 [facility] Comment on above: Order Comment: Speci men Type: BLOOD SPECIMENOrdering Facility: [facility] Address: [address] [place] [address] Performed By: #### 5 7021-8 ####[facility] LABCLIA [id number] [place] [address] Platelets (Bld) [#/Vol] 188 10*3/uL Normal 150-400 [facility] Comment on above: Order Comment: Speci men Type: BLOOD SPECIMENOrdering Facility: [facility] Address: [address] [place] [address] Performed By: #### 5 7021-8 ####[facility] LABIA [id number] [place] [address] RBC (Bld) [#/Vol] 4.08 10*6/uL Low 4.20-6.00 [facility] Comment on above: Order Comment: Speci men Type: BLOOD SPECIMENOrdering Facility: [facility] Address: [address] [place] [address] Performed By: #### 5 7021-8 ####[facility] LABIA [id number] [place] [address] WBC (Bld) [#/Vol] 6.15 10*3/uL Normal 3.70-11.00 [facility] Comment on above: Order Comment: Speci men Type: BLOOD SPECIMENOrdering Facility: [facility] Address: [address] [place] [address] Performed By: #### 5 7021-8 ####[facility] LABIA [id number] [place] [address] CNOVSPon 05-13-2023 CNOVSP Normal [facility] CNPNon 05-13-2023 CNPN Normal [facility] Comprehensive metabolic 2000 panelon 05-13-2023 Albumin [Mass/Vol] 4.5 g/dL Normal 3.9-4.9 [facility] Comment on above: Order Comment: Speci men Type: BLOOD SPECIMENOrdering Facility: [facility] Address: [address] [place] [address] Performed By: #### 2 4323-8 ####[facility] LABCLIA [id number] [place] [address] ALP [Catalytic activity/Vol] 68 U/L Normal 38-113 [facility] Comment on above: Order Comment: Speci men Type: BLOOD SPECIMENOrdering Facility: [facility] Address: [address] [place] [address] Performed By: #### 2 4323-8 ####[facility] LABCLIA [id number] [place] [address] ALT [Catalytic activity/Vol] 24 U/L Normal 10-54 [facility] Comment on above: Order Comment: Speci men Type: BLOOD SPECIMENOrdering Facility: [facility] Address: [address] [place] [address] Performed By: #### 2 4323-8 ####[facility] LABCLIA [id number] [place] [address] Anion gap [Moles/Vol] 7 mmol/L Low 9-18 [facility] Comment on above: Order Comment: Speci men Type: BLOOD SPECIMENOrdering Facility: [facility] Address: [address] [place] [address] Performed By: #### 2 4323-8 ####[facility] LABCLIA [id number] [place] [address] AST [Catalytic activity/Vol] 24 U/L Normal 14-40 [facility] Comment on above: Order Comment: Speci men Type: BLOOD SPECIMENOrdering Facility: [facility] Address: [address] [place] [address] Performed By: #### 2 4323-8 ####[facility] LABCLIA [id number] [place] [address] Bilirubin [Mass/Vol] 0.4 mg/dL Normal 0.2-1.3 [facility] Comment on above: Order Comment: Speci men Type: BLOOD SPECIMENOrdering Facility: [facility] Address: [address] [place] [address] Performed By: #### 2 4323-8 ####[facility] LABCLIA [id number] [place] [address] Calcium [Mass/Vol] 9.8 mg/dL Normal 8.5-10.2 [facility] Comment on above: Order Comment: Speci men Type: BLOOD SPECIMENOrdering Facility: [facility] Address: [address] [place] [address] Performed By: #### 2 4323-8 ####[facility] LABCLIA [id number] [place] [address] Chloride [Moles/Vol] 102 mmol/L Normal 97-105 [facility] Comment on above: Order Comment: Speci men Type: BLOOD SPECIMENOrdering Facility: [facility] Address: [address] [place] [address] Performed By: #### 2 4323-8 ####[facility] LABCLIA [id number] [place] [address] CO2 [Moles/Vol] 28 mmol/L Normal 22-30 [facility] Comment on above: Order Comment: Speci men Type: BLOOD SPECIMENOrdering Facility: [facility] Address: [address] [place] [address] Performed By: #### 2 4323-8 ####[facility] LABCLIA [id number] [place] [address] Creatinine [Mass/Vol] 1.06 mg/dL Normal 0.73-1.22 [facility] Comment on above: Order Comment: Speci men Type: BLOOD SPECIMENOrdering Facility: [facility] Address: [address] [place] [address] Performed By: #### 2 4323-8 ####[facility] LABCLIA [id number] [place] [address] Creatinine and Glomerular filtration rate.predicted panel (S/P/Bld) 77 mL/min/1.73m??? Normal >=60 [facility] Comment on above: Order Comment: Speci men Type: BLOOD SPECIMENOrdering Facility: [facility] Address: [address] [place] [address] Result Comment: Landy mated Glomerular Filtration Rate [...] actual GFR. Performed By: #### 2 4323-8 ####[facility] LABCLIA [id number] [place] [address] Glucose [Mass/Vol] 150 mg/dL High 74-99 [facility] Comment on above: Order Comment: Speci shalom Type: BLOOD SPECIMENOrdering Facility: [facility] Address: [address] [place] [address] Result Comment: The [place] [employer] (ADA) provides guidance for cutoff [...] Standards of Medical Care in Diabetes 2016, [place] [employer]. Diabetes Care. 2016.39(Suppl 1). Performed By: #### 2 4323-8 ####[facility] LABCLIA [id number] [place] [address] Potassium [Moles/Vol] 3.4 mmol/L Low 3.7-5.1 [facility] Comment on above: Order Comment: Speci men Type: BLOOD SPECIMENOrdering Facility: [facility] Address: [address] [place] [address] Performed By: #### 2 4323-8 ####[facility] LABCLIA [id number] [place] [address] Protein [Mass/Vol] 7.5 g/dL Normal 6.3-8.0 [facility] Comment on above: Order Comment: Speci men Type: BLOOD SPECIMENOrdering Facility: [facility] Address: [address] [place] [address] Performed By: #### 2 4323-8 ####[facility] LABCLIA [id number] [place] [address] Sodium [Moles/Vol] 137 mmol/L Normal 136-144 [facility] Comment on above: Order Comment: Speci men Type: BLOOD SPECIMENOrdering Facility: [facility] Address: [address] [place] [address] Performed By: #### 2 4323-8 ####[facility] LABCLIA [id number] [place] [address] Urea nitrogen [Mass/Vol] 30 mg/dL High 9-24 [facility] Comment on above: Order Comment: Speci men Type: BLOOD SPECIMENOrdering Facility: [facility] Address: [address] [place] [address] Performed By: #### 2 4323-8 ####[facility] LABCLIA [id number] [place] [address] T4/FTI/T4Uon 05-13-2023 FTI 6.6 ug/dL Normal 5.3-10.8 [facility] Comment on above: Order Comment: Speci men Type: BLOOD SPECIMENOrdering Facility: [facility] Address: [address] [place] [address] Performed By: #### T 4FALEJANDRO, 3016-3 ####[facility] LABIA [id number] [place] [address] [place] T4 [Mass/Vol] 6.3 ug/dL Normal 5.5-10.2 [facility] Comment on above: Order Comment: Speci men Type: BLOOD SPECIMENOrdering Facility: [facility] Address: [address] [place] [address] Performed By: #### Lexi 4FALEJANDRO, 6-3 ####[facility]ITAL[facility] [id number] [place] [address] [place] T4 uptake [Mass/Vol] 0.96 Normal 0.91-1.19 [facility] Comment on above: Order Comment: Speci men Type: BLOOD SPECIMENOrdering Facility: [facility] Address: [address] [place] [address] Performed By: #### Lexi 4FALEJANDRO, 6-3 ####[facility]ITAL[facility] [id number] [place] [address] [place] TSH SerPl-aCncon 05-13-2023 TSH Qn 47.800 m[IU]/L High 0.270-4.200 [facility] Comment on above: Order Comment: Speci men Type: BLOOD SPECIMENOrdering Facility: [facility] Address: [address] [place] [address] Performed By: #### Lexi CHAN, 3015-3 ####[facility] [id number] [place] [id number] [place] GLUCOSE, BLOOD (POC)on 05-12 Glucose [Mass/Vol] 85 mg/dL 74 - 99 mg/dL [facility] Comment on above: Location:[facility], [address] [place] [address] Dr[address] [place], [place], [address] The Accu-Chek Inform II glucose meter has [...] blood gas instrument) in the above situations. [facility] NM PET/CT SKULL-THIGH SUBQon 05-12-2023 NM PET/CT SKULL-THIGH SUBQ Normal [facility] PET+CT Guidance for localiza tion of tumor of Skull base to mid-thigh-- W 18F-FDG Anoop 05-12-2023 IMPRESSION: 1. NECK: * Increased size and [...] No FDG avid neoplastic process. . 4. EXTREMITIES/SKELETON : * No suspicious FDG avid osseous lesion. Transcribe Date/Time: May 12 2023 4:38P Dictated by: AGUS WADE MD This examination was interpreted and the report reviewed and electronically signed by: AGUS WADE MD on May 12 2023 5:01PM EST Thank you for allowing us to participate in the care of your patient. Should there be any questions regarding this interpretation, please call [phone]. If you are unable to reach us at the number above, please feel free to contact [facility] eRadiology at [phone]. 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 Additional chemoradiation completed 04/2022. Patient developed metastatic disease in early 2022 and was administered immunotherapy and palliative radiation to the left upper chest. Right tonsillar uptake was most consistent with inflammatory/postinf ectious findings on ENT evaluation 07/26/2021. INDICATION: Study performed for subsequent treatment strategy. TECHNIQUE: F18-FDG administered IV was followed about 60 minutes later by PET imaging from eyes to proximal thighs. Free breathing low dose CT was performed without contrast for attenuation correction and anatomic localization. Blood glucose before FDG injection: 85 mg/dL FDG radionuclide dose: 7.[address] Dose-Length Product (DLP): 183 mGy*cm. CT Dose Reduction Employed: Yes COMPARISON: PET/CT 01/17/2023 CORRELATION: None. RESULT: Tile Finisher (topogram) images: No additional findings. - Mediastinum blood pool activity: Max SUV: 3.0 - Background liver activity: Max SUV: 3.6 HEAD AND NECK: Increased soft tissue along the right palatine tonsil with associated hypermetabolism, with soft tissue measuring up to 2.4 cm (Max SUV:17; image 4:44, previously max SUV 11). Physiologic uptake seen in the visualized brain, extraocular muscles, parapharyngeal soft tissues, base of tongue, vocal cords, and other salivary glands. Diffuse thyroid hypermetabolism, increased from prior (Max SUV 5.2, previously 2.8) CHEST: Physiologic uptake in the heart and mediastinum. Lungs and tracheobronchial tree: Increased size, number, and hypermetabolism of several bilateral metastatic nodules, with index lesions as follows: -2.1 x 2.0 cm left hilar nodule (Max SUV:26; image 4:135), previously 2.3 x 1.7 cm with max SUV 19 -2.3 x 1.9 cm anterior right lower lobe nodule (Max SUV:6.2; image 4:136), previously 1.6 x 1.3 cm with max SUV 3.4 -Hypermetabolic posterior right lower lobe nodules, including a 0.8 cm nodule (Max SUV:3.0; image 4:135) -Note that PET/CT is not sensitive for pulmonary nodules less than 8 mm. -Emphysema. Pleura: Stable thickening with low level hypermetabolism along the left anterior pleura (Max SUV 3.5), likely posttreatment related. Mediastinum and Lymph nodes: Some of the central pulmonary nodules could represent hilar lymphadenopathy. Otherwise FDG avid mediastinal mass, mediastinal or hilar lymphadenopathy. Heart and great vessels: Physiologic uptake in the heart. Arterial atherosclerotic disease. Chest wall and axilla: Increased size of left subpectoral node/mass measuring 2.7 cm (Max SUV:9.2; image 4:103), previously punctate with max SUV 4.4. Median sternotomy. ABDOMEN AND PELVIS: Physiologic uptake seen in the and GI tracts. Liver: No FDG avid lesion. Biliary: Gallbladder is unremarkable. Spleen: No FDG avid lesion. No splenomegaly. Pancreas: No FDG avid lesion. Adrenals: No FDG avid lesion. Kidneys: No stones, hydronephrosis, or FDG avid lesions. GI tract: No dilation or focal suspicious FDG avid lesion. Lymph nodes: No FDG avid abdominal or pelvic lymphadenopathy. Mesentery/Peritoneum : No ascites or FDG avid mass. Vasculature: Vascular patency cannot be assessed due to lack of IV contrast. No aortic or iliac artery aneurysm. Right iliac arterial stent. Pelvis: No ascites, fluid collection or FDG avid process. BONES AND EXTREMITIES: No suspicious FDG avid osseous lesion. The imaged portions of the skeleton demonstrates age-related degenerative changes. No destructive osseous lesions. 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 Additional chemoradiation completed 04/2022. Patient developed metastatic disease in early 2022 and was administered immunotherapy and palliative radiation to the left upper chest. Right tonsillar uptake was most consistent with inflammatory/postinf ectious findings on ENT evaluation 07/26/2021. INDICATION: Study performed for subsequent treatment strategy. TECHNIQUE: F18-FDG administered IV was followed about 60 minutes later by PET imaging from eyes to proximal thighs. Free breathing low dose CT was performed without contrast for attenuation correction and anatomic localization. Blood glucose before FDG injection: 85 mg/dL FDG radionuclide dose: 7.[address] Dose-Length Product (DLP): 183 mGy*cm. CT Dose Reduction Employed: Yes COMPARISON: PET/CT 01/17/2023 CORRELATION: None. RESULT: Tile Finisher (topogram) images: No additional findings. - Mediastinum blood pool activity: Max SUV: 3.0 - Background liver activity: Max SUV: 3.6 HEAD AND NECK: Increased soft tissue along the right palatine tonsil with associated hypermetabolism, with soft tissue measuring up to 2.4 cm (Max SUV:17; image 4:44, previously max SUV 11). Physiologic uptake seen in the visualized brain, extraocular muscles, parapharyngeal soft tissues, base of tongue, vocal cords, and other salivary glands. Diffuse thyroid hypermetabolism, increased from prior (Max SUV 5.2, previously 2.8) CHEST: Physiologic uptake in the heart and mediastinum. Lungs and tracheobronchial tree: Increased size, number, and hypermetabolism of several bilateral metastatic nodules, with index lesions as follows: -2.1 x 2.0 cm left hilar nodule (Max SUV:26; image 4:135), previously 2.3 x 1.7 cm with max SUV 19 -2.3 x 1.9 cm anterior right lower lobe nodule (Max SUV:6.2; image 4:136), previously 1.6 x 1.3 cm with max SUV 3.4 -Hypermetabolic posterior right lower lobe nodules, including a 0.8 cm nodule (Max SUV:3.0; image 4:135) -Note that PET/CT is not sensitive for pulmonary nodules less than 8 mm. -Emphysema. Pleura: Stable thickening with low level hypermetabolism along the left anterior pleura (Max SUV 3.5), likely posttreatment related. Mediastinum and Lymph nodes: Some of the central pulmonary nodules could represent hilar lymphadenopathy. Otherwise FDG avid mediastinal mass, mediastinal or hilar lymphadenopathy. Heart and great vessels: Physiologic uptake in the heart. Arterial atherosclerotic disease. Chest wall and axilla: Increased size of left subpectoral node/mass measuring 2.7 cm (Max SUV:9.2; image 4:103), previously punctate with max SUV 4.4. Median sternotomy. ABDOMEN AND PELVIS: Physiologic uptake seen in the and GI tracts. Liver: No FDG avid lesion. Biliary: Gallbladder is unremarkable. Spleen: No FDG avid lesion. No splenomegaly. Pancreas: No FDG avid lesion. Adrenals: No FDG avid lesion. Kidneys: No stones, hydronephrosis, or FDG avid lesions. GI tract: No dilation or focal suspicious FDG avid lesion. Lymph nodes: No FDG avid abdominal or pelvic lymphadenopathy. Mesentery/Peritoneum : No ascites or FDG avid mass. Vasculature: Vascular patency cannot be assessed due to lack of IV contrast. No aortic or iliac artery aneurysm. Right iliac arterial stent. Pelvis: No ascites, fluid collection or FDG avid process. BONES AND EXTREMITIES: No suspicious FDG avid osseous lesion. The imaged portions of the skeleton demonstrates age-related degenerative changes. No destructive osseous lesions. IMPRESSION IMPRESSION: 1. NECK: * Increased size and [...] No FDG avid neoplastic process. . 4. EXTREMITIES/SKELETON : * No suspicious FDG avid osseous lesion. Transcribe Date/Time: May 12 2023 4:38P Dictated by: AGUS WADE MD This examination was interpreted and the report reviewed and electronically signed by: AGUS WADE MD on May 12 2023 5:01PM EST Thank you for allowing us to participate in the care of your patient. Should there be any questions r (more content not included)... [facility] Radiology Study observation (narrative) [facility] PET+CT Guidance for localiza tion of tumor of Skull base to mid-thigh-- W 18F-FDG IVOrdered By: [facility] Provider on 05-12-2023 [facility] CNPNon 05-08-2023 CNPN Normal [facility] CNPNon 04-23-2023 CNPN Normal [facility] CBC W Auto Differential pane l (Bld)on 04-22-2023 Basophils (Bld) [#/Vol] 0.04 10*3/uL Normal <0.11 [facility] Comment on above: Order Comment: Speci men Type: BLOOD SPECIMENOrdering Facility: [facility] Address: [address] [place] [place] [address] Performed By: #### 5 7021-8 ####[facility] LABCLIA [id number] [place] [address] Basophils/100 WBC (Bld) 0.8 % Normal [facility] Comment on above: Order Comment: Speci men Type: BLOOD SPECIMENOrdering Facility: [facility] Address: [address] [place] [address] Performed By: #### 5 7021-8 ####[facility] LABCLIA [id number] [place] [address] Differential cell count method Nom (Bld) Auto Normal [facility] Comment on above: Order Comment: Speci men Type: BLOOD SPECIMENOrdering Facility: [facility] Address: [address] [place] [address] Performed By: #### 5 7021-8 ####[facility] LABCLIA [id number] [place] [address] Eosinophils (Bld) [#/Vol] 0.07 10*3/uL Normal <0.46 [facility] Comment on above: Order Comment: Speci men Type: BLOOD SPECIMENOrdering Facility: [facility] Address: [address] [place] [address] Performed By: #### 5 7021-8 ####[facility] LABCLIA [id number] [place] [address] Eosinophils/100 WBC (Bld) 1.4 % Normal [facility] Comment on above: Order Comment: Speci men Type: BLOOD SPECIMENOrdering Facility: [facility] Address: [address] [place] [address] Performed By: #### 5 7021-8 ####[facility] LABCLIA [id number] [place] [address] Erythrocyte distribution width (RBC) [Ratio] 14.5 % Normal 11.5-15.0 [facility] Comment on above: Order Comment: Speci men Type: BLOOD SPECIMENOrdering Facility: [facility] Address: [address] [place] [address] Performed By: #### 5 7021-8 ####[facility] LABCLIA [id number] [place] [address] Hematocrit (Bld) [Volume fraction] 39.9 % Normal 39.0-51.0 [facility] Comment on above: Order Comment: Speci men Type: BLOOD SPECIMENOrdering Facility: [facility] Address: [address] [place] [address] Performed By: #### 5 7021-8 ####[facility] LABIA [id number] [place] [address] Hemoglobin (Bld) [Mass/Vol] 13.7 g/dL Normal 13.0-17.0 [facility] Comment on above: Order Comment: Speci men Type: BLOOD SPECIMENOrdering Facility: [facility] Address: [address] [place] [address] Performed By: #### 5 7021-8 ####[facility] LABCLIA [id number] [place] [address] Immature granulocytes (Bld) [#/Vol] 0.05 10*3/uL Normal <0.10 [facility] Comment on above: Order Comment: Speci men Type: BLOOD SPECIMENOrdering Facility: [facility] Address: [address] [place] [address] Performed By: #### 5 7021-8 ####[facility] LABIA [id number] [place] [address] Immature granulocytes/100 WBC (Bld) 1.0 % Normal [facility] Comment on above: Order Comment: Speci men Type: BLOOD SPECIMENOrdering Facility: [facility] Address: [address] [place] [address] Performed By: #### 5 7021-8 ####[facility] LABCLIA [id number] [place] [address] Lymphocytes (Bld) [#/Vol] 0.82 10*3/uL Low 1.00-4.00 [facility] Comment on above: Order Comment: Speci men Type: BLOOD SPECIMENOrdering Facility: [facility] Address: [address] [place] [address] Performed By: #### 5 7021-8 ####[facility] LABCLIA [id number] [place] [address] Lymphocytes/100 WBC (Bld) 16.2 % Normal [facility] Comment on above: Order Comment: Speci men Type: BLOOD SPECIMENOrdering Facility: [facility] Address: [address] [place] [address] Performed By: #### 5 7021-8 ####[facility] LABCLIA [id number] [place] [address] MCH (RBC) [Entitic mass] 32.0 pg Normal 26.0-34.0 [facility] Comment on above: Order Comment: Speci men Type: BLOOD SPECIMENOrdering Facility: [facility] Address: [address] [place] [address] Performed By: #### 5 7021-8 ####[facility] LABCLIA [id number] [place] [address] MCHC (RBC) [Mass/Vol] 34.3 g/dL Normal 30.5-36.0 [facility] Comment on above: Order Comment: Speci men Type: BLOOD SPECIMENOrdering Facility: [facility] Address: [address] [place] [address] Performed By: #### 5 7021-8 ####[facility] LABCLIA [id number] [place] [address] MCV (RBC) [Entitic vol] 93.2 fL Normal 80.0-100.0 [facility] Comment on above: Order Comment: Speci men Type: BLOOD SPECIMENOrdering Facility: [facility] Address: [address] [place] [address] Performed By: #### 5 7021-8 ####[facility] LABCLIA [id number] [place] [address] Monocytes (Bld) [#/Vol] 0.45 10*3/uL Normal <0.87 [facility] Comment on above: Order Comment: Speci men Type: BLOOD SPECIMENOrdering Facility: [facility] Address: [address] [place] [address] Performed By: #### 5 7021-8 ####[facility] LABIA [id number] [place] [address] Monocytes/100 WBC (Bld) 8.9 % Normal [facility] Comment on above: Order Comment: Speci men Type: BLOOD SPECIMENOrdering Facility: [facility] Address: [address] [place] [address] Performed By: #### 5 7021-8 ####[facility] LABIA [id number] [place] [address] Neutrophils (Bld) [#/Vol] 3.63 10*3/uL Normal 1.45-7.50 [facility] Comment on above: Order Comment: Speci men Type: BLOOD SPECIMENOrdering Facility: [facility] Address: [address] [place] [address] Performed By: #### 5 7021-8 ####[facility] LABIA [id number] [place] [address] Neutrophils/100 WBC (Bld) 71.7 % Normal [facility] Comment on above: Order Comment: Speci men Type: BLOOD SPECIMENOrdering Facility: [facility] Address: [address] [address] Performed By: #### 5 7021-8 ####[facility] [facility] [id number] [place] [address] Nucleated RBC (Bld) [#/Vol] 10*3/uL Normal <0.01 [facility] Comment on above: Order Comment: Speci men Type: BLOOD SPECIMENOrdering Facility: [facility] Address: [address] [address] Performed By: #### 5 7021-8 ####[facility] LABCLIA [id number] [place] [address] Nucleated RBC/100 WBC (Bld) [Ratio] 0.0 /100 WBC Normal [facility] Comment on above: Order Comment: Speci men Type: BLOOD SPECIMENOrdering Facility: [facility] Address: [address] [place] [address] Performed By: #### 5 7021-8 ####[facility] LABCLIA [id number] [place] [address] Platelet mean volume (Bld) [Entitic vol] 10.2 fL Normal 9.0-12.7 [facility] Comment on above: Order Comment: Speci men Type: BLOOD SPECIMENOrdering Facility: [facility] Address: [address] [address] Performed By: #### 5 7021-8 ####[facility] LABCLIA [id number] [place] [address] Platelets (Bld) [#/Vol] 206 10*3/uL Normal 150-400 [facility] Comment on above: Order Comment: Speci men Type: BLOOD SPECIMENOrdering Facility: [facility] Address: [address] [place] [address] Performed By: #### 5 7021-8 ####[facility] LABCLIA [id number] [place] [address] RBC (Bld) [#/Vol] 4.28 10*6/uL Normal 4.20-6.00 [facility] Comment on above: Order Comment: Speci men Type: BLOOD SPECIMENOrdering Facility: [facility] Address: [address] [place] [address] Performed By: #### 5 7021-8 ####[facility] LABCLIA [id number] [place] [address] WBC (Bld) [#/Vol] 5.06 10*3/uL Normal 3.70-11.00 [facility] Comment on above: Order Comment: Speci men Type: BLOOD SPECIMENOrdering Facility: [facility] Address: [address] [place] [address] Performed By: #### 5 7021-8 ####[facility] LABCLIA [id number] [place] [address] CNOVSPon 04-22-2023 CNOVSP Normal [facility] Comprehensive metabolic 2000 panelon 04-22-2023 Albumin [Mass/Vol] 4.5 g/dL Normal 3.9-4.9 [facility] Comment on above: Order Comment: Speci men Type: BLOOD SPECIMENOrdering Facility: [facility] Address: [address] [place] [address] Performed By: #### 2 4323-8 ####[facility] LABCLIA [id number] [place] [address] ALP [Catalytic activity/Vol] 72 U/L Normal 38-113 [facility] Comment on above: Order Comment: Speci men Type: BLOOD SPECIMENOrdering Facility: [facility] Address: [address] [place] [address] Performed By: #### 2 4323-8 ####[facility] LABCLIA [id number] [place] [address] ALT [Catalytic activity/Vol] 39 U/L Normal 10-54 [facility] Comment on above: Order Comment: Speci men Type: BLOOD SPECIMENOrdering Facility: [facility] Address: [address] [address] Performed By: #### 2 4323-8 ####[facility] LABCLIA [id number] [place] [address] Anion gap [Moles/Vol] 8 mmol/L Low 9-18 [facility] Comment on above: Order Comment: Speci men Type: BLOOD SPECIMENOrdering Facility: [facility] Address: [address] [address] Performed By: #### 2 4323-8 ####[facility] LABCLIA [id number] [place] [address] AST [Catalytic activity/Vol] 27 U/L Normal 14-40 [facility] Comment on above: Order Comment: Speci men Type: BLOOD SPECIMENOrdering Facility: [facility] Address: [address] [address] Performed By: #### 2 4323-8 ####[facility] LABCLIA [id number] [place] [address] Bilirubin [Mass/Vol] 0.8 mg/dL Normal 0.2-1.3 [facility] Comment on above: Order Comment: Speci men Type: BLOOD SPECIMENOrdering Facility: [facility] Address: [address] [place] [address] Performed By: #### 2 4323-8 ####[facility] LABCLIA [id number] [place] [address] Calcium [Mass/Vol] 9.7 mg/dL Normal 8.5-10.2 [facility] Comment on above: Order Comment: Speci men Type: BLOOD SPECIMENOrdering Facility: [facility] Address: [address] [place] [address] Performed By: #### 2 4323-8 ####[facility] LABCLIA [id number] [place] [address] Chloride [Moles/Vol] 103 mmol/L Normal 97-105 [facility] Comment on above: Order Comment: Speci men Type: BLOOD SPECIMENOrdering Facility: [facility] Address: [address] [place] [address] Performed By: #### 2 4323-8 ####[facility] LABCLIA [id number] [place] [address] CO2 [Moles/Vol] 28 mmol/L Normal 22-30 [facility] Comment on above: Order Comment: Speci men Type: BLOOD SPECIMENOrdering Facility: [facility] Address: [address] [place] [address] Performed By: #### 2 4323-8 ####[facility] LABCLIA [id number] [place] [address] Creatinine [Mass/Vol] 1.11 mg/dL Normal 0.73-1.22 [facility] Comment on above: Order Comment: Speci men Type: BLOOD SPECIMENOrdering Facility: [facility] Address: [address] [place] [address] Performed By: #### 2 4323-8 ####[facility] LABCLIA [id number] [place] [address] Creatinine and Glomerular filtration rate.predicted panel (S/P/Bld) 73 mL/min/1.73m??? Normal >=60 [facility] Comment on above: Order Comment: Speci men Type: BLOOD SPECIMENOrdering Facility: [facility] Address: [address] [place] [address] Result Comment: Landy mated Glomerular Filtration Rate [...] actual GFR. Performed By: #### 2 4323-8 ####[facility] LABCLIA [id number] [place] [address] Glucose [Mass/Vol] 137 mg/dL High 74-99 [facility] Comment on above: Order Comment: Speci men Type: BLOOD SPECIMENOrdering Facility: [facility] Address: [address] [place] [address] Result Comment: The [place] Diabetes Association (ADA) provides guidance for cutoff [...] Standards of Medical Care in Diabetes 2016, [place] [employer]. Diabetes Care. 2016.39(Suppl 1). Performed By: #### 2 4323-8 ####[facility] LABCLIA [id number] [place] [address] Potassium [Moles/Vol] 3.9 mmol/L Normal 3.7-5.1 [facility] Comment on above: Order Comment: Speci men Type: BLOOD SPECIMENOrdering Facility: [facility] Address: [address] [place] [address] Performed By: #### 2 4323-8 ####[facility] LABCLIA [id number] [place] [address] Protein [Mass/Vol] 7.1 g/dL Normal 6.3-8.0 [facility] Comment on above: Order Comment: Speci men Type: BLOOD SPECIMENOrdering Facility: [facility] Address: [address] [place] [address] Performed By: #### 2 4323-8 ####[facility] LABCLIA [id number] [place] [address] Sodium [Moles/Vol] 139 mmol/L Normal 136-144 [facility] Comment on above: Order Comment: Speci men Type: BLOOD SPECIMENOrdering Facility: [facility] Address: [address] [address] Performed By: #### 2 4323-8 ####[facility] LABCLIA [id number] [place] [address] Urea nitrogen [Mass/Vol] 17 mg/dL Normal 9-24 [facility] Comment on above: Order Comment: Speci men Type: BLOOD SPECIMENOrdering Facility: [facility] Address: [address] [address] Performed By: #### 2 4323-8 ####[facility] LABCLIA [id number] [place] [address] TSH SerPl-aCncon 04-22-2023 TSH Qn 62.600 m[IU]/L High 0.270-4.200 [facility] Comment on above: Order Comment: Speci men Type: BLOOD SPECIMENOrdering Facility: [facility] Address: [address] [address] Performed By: #### 3 016-3 ####[facility] LABCLIA [id number] [address] [id number] [place] [facility] Family Medicine Office/Clini c Noteon 04-17-2023 Family [...] were given. Reviewed Medicare preventative services checklist. [facility]-Falls Prevention and home safety screening reviewed. Patient denies any falls in last 12 months, voices no worry about falling, exhibits no problems with sitting, standing, or ambulation. Pt voices understanding with keeping walk way area free of clutter to prevent tripping and/or falling. [place] Advance Directives Discussed, see below # 2. [...] Living Will and a durable power of wet char conveyor tender for your health care. These two forms [...] his representat (more content not included)... Normal [facility] Comment on above: Result Comment: Elec tronically Signed By: Enrique Austin\.br\Date and Time Signed: 04/17/23 08:43 EDT\.br\Electronically Co-Signed By: John Malcolm\.br\Date and Time Co-Signed: 04/16/23 11:41 EDT Ambulatory Visit Summaryon 0 04-16-2023 Ambulatory Visit [...] mg Tab) fluticasone nasal (Flonase 0.05 mg/inh [place]) isosorbide mononitrate (isosorbide mononitrate 30 mg ER [...] 10:00 AM EST With: Enrique Austin Where: [place] [id number] \.br\ Medications\.br\ What How Much When Why [...] Unchanged fluticasone nasal (Flonase 0.05 mg/ inh [place]) 2 Sprays Nasal Inhalation Every day Rash [...] sauce and paste (not low-sodium or reduced [facility] Auth for Release of Medical Recordson 04-16-2023 Auth for Release of Medical Records [id number]# 1.00CD:127 Normal [facility] Family Medicine Office/Clini c Noteon 04-16-2023 Family Medicine Office/Clinic Note HPI Staff Vasquez [...] anxiety, # 30 tab(s), Refills(s) 1, Pharmacy: [facility], 169.6, cm, 04/16/23 10:21:00 EDT, Height/Length [...] 1 tab(s), Oral, Daily Flonase 0.05 mg/inh [place], 2 spray(s), Nasal, Daily isosorbide mononitrate 30 [...] Cate MENARD, Enrique Beatty\.br\Date and Time Signed: 09/27/23 10:50 EDT Patient Educationon 04-16-20 23 Patient Education [facility] Fall Prevention in the Home, Adult Falls [...] night-lights. ? Place frequently used items in weum-zj-hjpoh places. Lower the shelves around your home [...] the way. ? Do not use floor djiboutian or wax that makes floors slippery. If [...] include working with a physical therapist or hop strainer to improve your strength, balance, and endurance. Where to find more information ? Centers for Disease Control and Prevention, [place]: www.cdc.gov ? [employer] [place] on Aging: www.allyssa.nih.gov Contact a health care [...] health ca (more content not included)... Normal [facility] Screenson 04-16-2023 Screens [id number]# 1.00CD:127 Normal [facility] XR CHEST 2V FRONTAL/LATon [facility] XR Chest PA and Lateralon IMPRESSION: 1. Postoperative changes involving the left perihilar/upper lung zone, as above. 2. 2.4 cm nodular opacity within the right lower lobe, appearing to have progressed in size when correlated to the prior PET/CT examination of 01/17/2023. Transcribe Date/Time: Apr 01 2023 4:04P Dictated by: RAPHAEL ERVIN MD This examination was interpreted and the report reviewed and electronically signed by: RAPHAEL ERVIN MD on Apr 01 2023 4:07PM EST Thank you for allowing us to participate in the care of your patient. Should there be any questions regarding this interpretation, please call [phone]. If you are unable to reach us at the number above, please feel free to contact [facility] eRadiology at [phone]. 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 Lungs and pleura: Postoperative changes involving the left upper lung/perihilar region are identified. Prominence to the left hilar/perihilar region is appreciated, which may be postoperative in nature. 2.4 cm right lower lobe nodule appears to have progressed in size when correlated to prior PET/CT examination, which time it measured 1.6 cm. The pulmonary vasculature is within normal limits. No definite acute consolidative process is identified. Cardiomediastinal silhouette: Heart size is within normal limits. Prominence to the left hilar/suprahilar region is likely postoperative in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 96 mmol/L Low 97 - 105 mmol/L [facility] CO2 [Moles/Vol] 26 mmol/L 22 - 30 mmol/L [facility] [place] Creatinine [Mass/Vol] 0.97 mg/dL 0.73 - 1.22 mg/dL [facility] Estimated Glomerular Filtration Rate 87 mL/min/1.73m >=60 mL/min/1.73m [facility] Glucose [Mass/Vol] 159 mg/dL High 74 - 99 mg/dL [facility] Potassium [Moles/Vol] 3.6 mmol/L Low 3.7 - 5.1 mmol/L [facility] Protein [Mass/Vol] 7.5 g/dL 6.3 - 8.0 g/dL [facility] Sodium [Moles/Vol] 130 mmol/L Low 136 - 144 mmol/L [facility] Urea nitrogen [Mass/Vol] 15 mg/dL 9 - 24 mg/dL [facility] LD LACTATE DEHYDROon 11-11- 023 LDH [Catalytic activity/Vol] 291 U/L High 135 - 225 U/L [facility] CBC W Auto Differential pane l (Bld)on 10-31-2022 Basophils (Bld) [#/Vol] <0.11 k/uL [facility] Basophils/100 WBC (Bld) 0.4 % [facility] Differential cell count method Nom (Bld) Auto [facility] Eosinophils (Bld) [#/Vol] 0.17 10*3/uL <0.46 k/uL [facility] Eosinophils/100 WBC (Bld) 3.7 % [facility] Erythrocyte distribution width (RBC) [Ratio] 14.7 % 11.5 - 15.0 % [facility] Hematocrit (Bld) [Volume fraction] 32.0 % Low 39.0 - 51.0 % [facility] Hemoglobin (Bld) [Mass/Vol] 10.8 g/dL Low 13.0 - 17.0 g/dL [facility] Immature granulocytes (Bld) [#/Vol] <0.10 k/uL [facility] Immature granulocytes/100 WBC (Bld) 0.2 % [facility] Lymphocytes (Bld) [#/Vol] 0.59 10*3/uL Low 1.00 - 4.00 k/uL [facility] Lymphocytes/100 WBC (Bld) 12.9 % [facility] MCH (RBC) [Entitic mass] 30.3 pg 26.0 - 34.0 pg [facility] MCHC (RBC) [Mass/Vol] 33.8 g/dL 30.5 - 36.0 g/dL [facility] MCV (RBC) [Entitic vol] 89.6 fL 80.0 - 100.0 fL [facility] Monocytes (Bld) [#/Vol] 0.87 10*3/uL High <0.87 k/uL [facility] Monocytes/100 WBC (Bld) 19.0 % [facility] Neutrophils (Bld) [#/Vol] 2.92 10*3/uL 1.45 - 7.50 k/uL [facility] Neutrophils/100 WBC (Bld) 63.8 % [facility] Nucleated RBC (Bld) [#/Vol] <0.01 k/uL [facility] Nucleated RBC/100 WBC (Bld) [Ratio] 0.0 /100 WBC [facility] Platelet mean volume (Bld) [Entitic vol] 10.2 fL 9.0 - 12.7 fL [facility] Platelets (Bld) [#/Vol] 247 10*3/uL 150 - 400 k/uL [facility] RBC (Bld) [#/Vol] 3.57 10*6/uL Low 4.20 - 6.00 m/uL [facility] WBC (Bld) [#/Vol] 4.58 10*3/uL 3.70 - 11.00 k/u L [facility] Comprehensive metabolic 2000 panelon 10-31-2022 Albumin [Mass/Vol] 4.1 g/dL 3.9 - 4.9 g/dL Cl [facility] ALP [Catalytic activity/Vol] 54 U/L 38 - 113 U/L [facility] ALT [Catalytic activity/Vol] 17 U/L 10 - 54 U/L [facility] Anion gap [Moles/Vol] 8 mmol/L Low 9 - 18 mmol/L [facility] AST [Catalytic activity/Vol] 21 U/L 14 - 40 U/L [facility] Bilirubin [Mass/Vol] 0.7 mg/dL 0.2 - 1.3 mg/dL [facility] Calcium [Mass/Vol] 9.4 mg/dL 8.5 - 10.2 mg/dL [facility] Chloride [Moles/Vol] 100 mmol/L 97 - 105 mmol/L [facility] CO2 [Moles/Vol] 25 mmol/L 22 - 30 mmol/L [facility] [place] Creatinine [Mass/Vol] 1.08 mg/dL 0.73 - 1.22 mg/dL [facility] Estimated Glomerular Filtration Rate 76 mL/min/1.73m >=60 mL/min/1.73m [facility] Glucose [Mass/Vol] 97 mg/dL 74 - 99 mg/dL [facility] Potassium [Moles/Vol] 3.7 mmol/L 3.7 - 5.1 mmol/L [facility] Protein [Mass/Vol] 7.1 g/dL 6.3 - 8.0 g/dL [facility] Sodium [Moles/Vol] 133 mmol/L Low 136 - 144 mmol/L [facility] Urea nitrogen [Mass/Vol] 20 mg/dL 9 - 24 mg/dL [facility] Orders Onlyon 10-23-2022 Orders Only [id number] Cristal Gu 1955 M Date Provider Department Center 10/23/2022 NildaMichellKassieILANACHAYITO SANTIZO [facility] No family history on file Normal [facility] CBC W Auto Differential pane l (Bld)on 10-21-2022 Basophils (Bld) [#/Vol] 0.03 10*3/uL <0.11 k/uL [facility] Basophils/100 WBC (Bld) 0.5 % [facility] Differential cell count method Nom (Bld) Auto [facility] Eosinophils (Bld) [#/Vol] 0.19 10*3/uL <0.46 k/uL [facility] Eosinophils/100 WBC (Bld) 2.9 % [facility] Erythrocyte distribution width (RBC) [Ratio] 15.0 % 11.5 - 15.0 % [facility] Hematocrit (Bld) [Volume fraction] 39.7 % 39.0 - 51.0 % [facility] Hemoglobin (Bld) [Mass/Vol] 13.3 g/dL 13.0 - 17.0 g/dL [facility] Immature granulocytes (Bld) [#/Vol] 0.05 10*3/uL <0.10 k/uL [facility] Immature granulocytes/100 WBC (Bld) 0.8 % [facility] Lymphocytes (Bld) [#/Vol] 0.95 10*3/uL Low 1.00 - 4.00 k/uL [facility] Lymphocytes/100 WBC (Bld) 14.6 % [facility] MCH (RBC) [Entitic mass] 30.6 pg 26.0 - 34.0 pg [facility] MCHC (RBC) [Mass/Vol] 33.5 g/dL 30.5 - 36.0 g/dL [facility] MCV (RBC) [Entitic vol] 91.3 fL 80.0 - 100.0 fL [facility] Monocytes (Bld) [#/Vol] 0.62 10*3/uL <0.87 k/uL [facility] Monocytes/100 WBC (Bld) 9.5 % [facility] Neutrophils (Bld) [#/Vol] 4.66 10*3/uL 1.45 - 7.50 k/uL [facility] Neutrophils/100 WBC (Bld) 71.7 % [facility] Nucleated RBC (Bld) [#/Vol] <0.01 k/uL [facility] Nucleated RBC/100 WBC (Bld) [Ratio] 0.0 /100 WBC [facility] Platelet mean volume (Bld) [Entitic vol] 10.1 fL 9.0 - 12.7 fL [facility] Platelets (Bld) [#/Vol] 237 10*3/uL 150 - 400 k/uL [facility] RBC (Bld) [#/Vol] 4.35 10*6/uL 4.20 - 6.00 m/uL [facility] WBC (Bld) [#/Vol] 6.50 10*3/uL 3.70 - 11.00 k/u L [facility] Comprehensive metabolic 2000 panelon 10-21-2022 Albumin [Mass/Vol] 4.4 g/dL 3.9 - 4.9 g/dL [facility] ALP [Catalytic activity/Vol] 55 U/L 38 - 113 U/L [facility] ALT [Catalytic activity/Vol] 22 U/L 10 - 54 U/L [facility] Center Anion gap [Moles/Vol] 10 mmol/L 9 - 18 mmol/L [facility] AST [Catalytic activity/Vol] 20 U/L 14 - 40 U/L [facility] Bilirubin [Mass/Vol] 0.7 mg/dL 0.2 - 1.3 mg/dL [facility] Calcium [Mass/Vol] 10.2 mg/dL 8.5 - 10.2 mg/dL [facility] Chloride [Moles/Vol] 98 mmol/L 97 - 105 mmol/L [facility] CO2 [Moles/Vol] 27 mmol/L 22 - 30 mmol/L [facility] [place] Creatinine [Mass/Vol] 1.04 mg/dL 0.73 - 1.22 mg/dL [facility] Estimated Glomerular Filtration Rate 80 mL/min/1.73m >=60 mL/min/1.73m [facility] Glucose [Mass/Vol] 145 mg/dL High 74 - 99 mg/dL [facility] Potassium [Moles/Vol] 4.2 mmol/L 3.7 - 5.1 mmol/L [facility] Protein [Mass/Vol] 7.8 g/dL 6.3 - 8.0 g/dL [facility] Sodium [Moles/Vol] 135 mmol/L Low 136 - 144 mmol/L [facility] Urea nitrogen [Mass/Vol] 21 mg/dL 9 - 24 mg/dL [facility] LD LACTATE DEHYDROon 023 LDH [Catalytic activity/Vol] 183 U/L 135 - 225 U/L [facility] GLUCOSE, BLOOD (POC)on 10-10 Glucose [Mass/Vol] 98 mg/dL 74 - 99 mg/dL [facility] Comment on above: Location:[facility], [address] [place] [address] , [place], [place], [address] The Accu-Chek Inform II glucose meter has [...] blood gas instrument) in the above situations. [facility] PET+CT Guidance for localiza tion of tumor of Skull base to mid-thigh-- W 18F-FDG Anoop 10-10-2022 IMPRESSION: 1. Neck: hypermetabolic focus in the right tonsillar/parapharyn geal region, similar to prior. 2. Chest: Hypermetabolic left subpectoral region mass. Hypermetabolic bilateral lung nodules. Findings concerning for progression of neoplastic process. 3. Abdomen and pelvis: No evidence of FDG avid neoplastic process 4. Skeleton: No hypermetabolic osseous lesions Transcribe Date/Time: Oct 10 2022 10:46P Dictated by: JILL MARION MD This examination was interpreted and the report reviewed and electronically signed by: JILL MARION MD on Oct 10 2022 10:56PM EST Thank you for allowing us to participate in the care of your patient. Should there be any questions regarding this interpretation, please call [phone]. If you are unable to reach us at the number above, please feel free to contact [facility] eRadiology at [phone]. DIVISION OF RADIOLOGY * * *Final Report* * * DATE OF EXAM: Oct 10 2022 10:19AM NRN [id number] - NM PET/CT SKULL-THIGH SUBQ / PROCEDURE REASON: Lung nodules * * * * Physician Interpretation * * * * RESULT: FDG PET/CT SCAN: CLINICAL HISTORY: Lung nodules. INDICATION: Subsequent treatment strategy. TECHNIQUE: 7.2 mCi 18-FDG IV, followed about 1 hour later by PET imaging from base of the skull to proximal femur. Non contrast CT was performed for attenuation correction and anatomic localization purposes. CT Dose-Length Product (DLP): 154 mGy*cm. CT Dose Reduction Employed: Yes BLOOD GLUCOSE: 98 mg/dL Comparison: Prior PET CT dated 05/28/2021. Correlation: CT chest abdomen and pelvis dated 09/17/2022 RESULT: NECK: Likely physiological activity in the oral cavity, tonsillar regions, salivary glands. Focal asymmetrical increased uptake in the right tonsillar/parapharyn geal region (Max SUV 7.4 previously max SUV 10). There is no hypermetabolic cervical lymphadenopathy. CHEST: Hypermetabolic left subpectoral region mass measures 4.2 x 2.4 cm (max SUV 12.6). There are hypermetabolic bilateral hilar perihilar region nodules. On the right perihilar region nodule measures 1.2 x 1.4 cm (max SUV 11.1). A left infrahilar region nodule measures 2 x 2.9 cm (max SUV 10.9). Multiple additional bilateral scattered lung nodules. For example in the lateral right midlung nodule measures about 1.3 cm (max SUV 2.6). There is mildly hypermetabolic peripheral consolidation in the lingular region (Max SUV 4.1) likely inflammatory. ABDOMEN AND PELVIS: The liver is slightly heterogeneous activity but no focal lesions are identified. There are no hypermetabolic foci in the liver, spleen, adrenals. There is no hypermetabolic abdominal or pelvic lymphadenopathy. Physiologic activity is noted in the liver, renal collecting system, bladder and bowel. SKELETON: There are no hypermetabolic osseous lesions. Tile Finisher (topogram) images:No additional findings. --- DIVISION OF RADIOLOGY Provider, [facility] - 10/10/2022 * * *Final Report* * * DATE OF EXAM: Oct 10 2022 10:19AM NRN [id number] - NM PET/CT SKULL-THIGH SUBQ / PROCEDURE REASON: Lung nodules * * * * Physician Interpretation * * * * RESULT: FDG PET/CT SCAN: CLINICAL HISTORY: Lung nodules. INDICATION: Subsequent treatment strategy. TECHNIQUE: 7.2 mCi 18-FDG IV, followed about 1 hour later by PET imaging from base of the skull to proximal femur. Non contrast CT was performed for attenuation correction and anatomic localization purposes. CT Dose-Length Product (DLP): 154 mGy*cm. CT Dose Reduction Employed: Yes BLOOD GLUCOSE: 98 mg/dL Comparison: Prior PET CT dated 05/28/2021. Correlation: CT chest abdomen and pelvis dated 09/17/2022 RESULT: NECK: Likely physiological activity in the oral cavity, tonsillar regions, salivary glands. Focal asymmetrical increased uptake in the right tonsillar/parapharyn geal region (Max SUV 7.4 previously max SUV 10). There is no hypermetabolic cervical lymphadenopathy. CHEST: Hypermetabolic left subpectoral region mass measures 4.2 x 2.4 cm (max SUV 12.6). There are hypermetabolic bilateral hilar perihilar region nodules. On the right perihilar region nodule measures 1.2 x 1.4 cm (max SUV 11.1). A left infrahilar region nodule measures 2 x 2.9 cm (max SUV 10.9). Multiple additional bilateral scattered lung nodules. For example in the lateral right midlung nodule measures about 1.3 cm (max SUV 2.6). There is mildly hypermetabolic peripheral consolidation in the lingular region (Max SUV 4.1) likely inflammatory. ABDOMEN AND PELVIS: The liver is slightly heterogeneous activity but no focal lesions are identified. There are no hypermetabolic foci in the liver, spleen, adrenals. There is no hypermetabolic abdominal or pelvic lymphadenopathy. Physiologic activity is noted in the liver, renal collecting system, bladder and bowel. SKELETON: There are no hypermetabolic osseous lesions. Tile Finisher (topogram) images:No additional findings. --- IMPRESSION IMPRESSION: 1. Neck: hypermetabolic focus in the right tonsillar/parapharyn geal region, similar to prior. 2. Chest: Hypermetabolic left subpectoral region mass. Hypermetabolic bilateral lung nodules. Findings concerning for progression of neoplastic process. 3. Abdomen and pelvis: No evidence of FDG avid neoplastic process 4. Skeleton: No hypermetabolic osseous lesions Transcribe Date/Time: Oct 10 2022 10:46P Dictated by: JILL MARION MD This examination was interpreted and the report reviewed and electronically signed by: JILL MARION MD on Oct 10 2022 10:56PM EST Thank you for allowing us to participate in the care of your patient. Should there be any questions regarding this interpretation, please call [phone]. If you are unable to reach us at the number above, please feel free to contact [facility] eRadiology at [phone]. [facility] Radiology Study observation (narrative) [facility] PET+CT Guidance for localiza tion of tumor of Skull base to mid-thigh-- W 18F-FDG IVOrdered By: [facility] Provider on 10-10-2022 [facility] XR CHEST 1 Von 10-10-2022 XR [...] differentiate infiltrate from a mass. Normal [facility] XR SHOULDER LT 2V or >on [...] LOVE ALBERTS Date: 2022-10-10 11:46 Normal [facility] LIPID PROFILEon 09-19-2022 CHOL-HDL RATIO NORM SEE BELOW Normal [facility] Comment on above: Result Comment: 3.3 - 4.4 LOW RISK 4.4 - 7.1 AVERAGE RISK 7.1 - 11.0 MODERATE RISK >11.0 HIGH RISK Performed By: #### L IPID #### [facility] [address] [address] [address] Usama Hobbs Cholesterol [Mass/Vol] 104 mg/dL Normal <=200 [facility] Comment on above: Performed By: #### L IPID #### [facility] [address] [place], [place] [address] Dr. Usama Hobbs Cholesterol in HDL [Mass/Vol] 36 mg/dL Critically low 40-60 [facility] Comment on above: Performed By: #### L IPID #### [facility] [address] [place], [place] [address] Dr. Usama Hobbs Cholesterol in LDL [Mass/Vol] 59.6 mg/dL Normal [facility] Comment on above: Performed By: #### L IPID #### [facility] [address] [address] [address] Usama Hobbs Cholesterol.total/Ch olesterol in HDL [Mass ratio] 2.9 {ratio} Normal [facility] Comment on above: Performed By: #### L IPID #### [facility] [address] [address] [address] Usama Hobbs HDL NORMAL > or = 60 mg/dl - LOW CARDIOVASCULAR RISK <40 mg/dl - HIGH CARDIOVASCULAR RISK Normal [facility] Comment on above: Performed By: #### L IPID #### [facility] [address] [address] [address] Usama Hobbs LDL CALC NORMAL SEE BELOW Normal [facility] Comment on above: Result Comment: <100 mg/dl OPTIMAL 100 - 129 mg/dl NEAR OR ABOVE OPTIMAL 130 - 159 mg/dl BORDERLINE HIGH 160 - 189 mg/dl HIGH >190 mg/dl VERY HIGH Performed By: #### L IPID #### [facility] [address] [place] [address] Dr. Usama Hobbs Triglyceride [Mass/Vol] 42 mg/dL Normal <=150 [facility] Comment on above: Performed By: #### L IPID #### [facility] [address] [place] [address] Dr. Usama Hobbs VLDL CALC 8.4 mg/dL Normal [facility] Comment on above: Performed By: #### L IPID #### [facility] [address] [place] [address] Abdomen and Pelvis W cont rast Anoop 09-18-2022 IMPRESSION: 1. No evidence of abdominal or pelvic metastatic disease. 2. Findings compatible with a subcapsular hematoma within the spleen. 3. No evidence of abdominal or pelvic lymphadenopathy. Transcribe Date/Time: Sep 18 2022 11:28A Dictated by: PRESTON DC MD This examination was interpreted and the report reviewed and electronically signed by: PRESTON DC MD on Sep 18 2022 11:43AM EST Thank you for allowing us to participate in the care of your patient. Should there be any questions regarding this interpretation, please call [phone]. If you are unable to reach us at the number above, please feel free to [facility] at [phone]. DIVISION OF RADIOLOGY * * *Final Report* * * DATE OF EXAM: Sep 17 2022 12:28PM [facility] 0530 - CT ABD/PEL W IVCON / PROCEDURE REASON: Malignant neoplasm of upper lobe of left lung (HCC) * * * * Physician Interpretation * * * * RESULT: EXAMINATION: CT ABDOMEN AND PELVIS WITH IV CONTRAST CLINICAL HISTORY: History of lung cancer. TECHNIQUE: CT of the abdomen and pelvis was performed using standard technique, scanning from just above the dome of the diaphragm to the symphysis pubis. MQ: CTAP_3 Contrast: IV: 120 ml of Omnipaque 300 Oral: 500 ml of Omni Oral 9mg per ml CT Radiation dose: Integrated Dose-length product (DLP) for this visit = 543 mGy*cm. CT Dose Reduction Employed: Automated exposure control (AEC) COMPARISON: None. RESULT: Liver: No mass. Biliary: The gallbladder is unremarkable. No biliary ductal dilation is seen. Spleen: There is a rim of hypodensity along the periphery of the spleen (3:17), likely on the basis of a subcapsular hematoma. No discrete splenic mass is visualized. No splenomegaly. Pancreas: No mass or duct dilation. Adrenals: No mass. Kidneys: No mass, calculus or hydronephrosis. GI tract: No dilation or wall thickening. Lymph nodes: No abdominal or pelvic lymphadenopathy. Mesentery/Peritoneum : No ascites or mass. Retroperitoneum: No mass. Vasculature: - Abdominal aorta and iliac arteries: Atherosclerotic plaque is noted throughout the abdominal aorta. Stents are noted in the right common and external iliac arteries. - Celiac and SMA: Patent without stenosis. - Portal venous system (SMV, splenic vein, portal vein and branches): Patent. - Hepatic veins: Patent. Pelvis: The urinary bladder is unremarkable. No pelvic mass or fluid collection is seen. Bones/Soft Tissues: Degenerative changes noted in the lumbar spine. No destructive osseous lesions are seen. There is a fat-containing umbilical hernia. Superficial soft tissues are otherwise unremarkable. Lower thorax: A chest CT performed will be reported separately. Tile Finisher (topogram) images: No additional findings. DIVISION OF RADIOLOGY Provider, [facility] - 09/18/2022 * * *Final Report* * * DATE OF EXAM: Sep 17 2022 12:28PM [facility] 0530 - CT ABD/PEL W IVCON / PROCEDURE REASON: Malignant neoplasm of upper lobe of left lung (HCC) * * * * Physician Interpretation * * * * RESULT: EXAMINATION: CT ABDOMEN AND PELVIS WITH IV CONTRAST CLINICAL HISTORY: History of lung cancer. TECHNIQUE: CT of the abdomen and pelvis was performed using standard technique, scanning from just above the dome of the diaphragm to the symphysis pubis. MQ: CTAP_3 Contrast: IV: 120 ml of Omnipaque 300 Oral: 500 ml of Omni Oral 9mg per ml CT Radiation dose: Integrated Dose-length product (DLP) for this visit = 543 mGy*cm. CT Dose Reduction Employed: Automated exposure control (AEC) COMPARISON: None. RESULT: Liver: No mass. Biliary: The gallbladder is unremarkable. No biliary ductal dilation is seen. Spleen: There is a rim of hypodensity along the periphery of the spleen (3:17), likely on the basis of a subcapsular hematoma. No discrete splenic mass is visualized. No splenomegaly. Pancreas: No mass or duct dilation. Adrenals: No mass. Kidneys: No mass, calculus or hydronephrosis. GI tract: No dilation or wall thickening. Lymph nodes: No abdominal or pelvic lymphadenopathy. Mesentery/Peritoneum : No ascites or mass. Retroperitoneum: No mass. Vasculature: - Abdominal aorta and iliac arteries: Atherosclerotic plaque is noted throughout the abdominal aorta. Stents are noted in the right common and external iliac arteries. - Celiac and SMA: Patent without stenosis. - Portal venous system (SMV, splenic vein, portal vein and branches): Patent. - Hepatic veins: Patent. Pelvis: The urinary bladder is unremarkable. No pelvic mass or fluid collection is seen. Bones/Soft Tissues: Degenerative changes noted in the lumbar spine. No destructive osseous lesions are seen. There is a fat-containing umbilical hernia. Superficial soft tissues are otherwise unremarkable. Lower thorax: A chest CT performed will be reported separately. Tile Finisher (topogram) images: No additional findings. IMPRESSION IMPRESSION: 1. No evidence of abdominal or pelvic metastatic disease. 2. Findings compatible with a subcapsular hematoma within the spleen. 3. No evidence of abdominal or pelvic lymphadenopathy. Transcribe Date/Time: Sep 18 2022 11:28A Dictated by: PRESTON DC MD This examination was interpreted and the report reviewed and electronically signed by: PRESTON DC MD on Sep 18 2022 11:43AM EST Thank you for allowing us to participate in the care of your patient. Should there be any questions regarding this interpretation, please call [phone]. If you are unable to reach us at the number above, please feel free to contact [facility] eRadiology at [phone]. [facility] CT Abdomen and Pelvis W cont rast IVOrdered By: [facility] Provider on 09-18-[address] [facility] [address] Chest W contrast Anoop IMPRESSION: 1. Multiple new and enlarging bilateral pulmonary nodules, highly suspicious for progression of disease. 2. No evidence of new bulky intrathoracic lymphadenopathy. Transcribe Date/Time: Sep 18 2022 11:04A Dictated by: PRESTON DC MD This examination was interpreted and the report reviewed and electronically signed by: PRESTON DC MD on Sep 18 2022 11:27AM EST Thank you for allowing us to participate in the care of your patient. Should there be any questions regarding this interpretation, please call [phone]. If you are unable to reach us at the number above, please feel free to contact [facility] eRadiology at [phone]. DIVISION OF RADIOLOGY * * *Final Report* * * DATE OF EXAM: Sep 17 2022 12:28PM [facility] 0539 - CT CHEST W IVCON / PROCEDURE REASON: Non-small cell lung cancer (NSCLC), monitor * * * * Physician Interpretation * * * * RESULT: EXAMINATION: CHEST CT WITH CONTRAST CLINICAL HISTORY: Non-small cell lung cancer. Technique: Spiral CT acquisition of the chest from the thoracic inlet to the upper abdomen following IV contrast. MQ: CTCW_6 Contrast: 120 mL Omnipaque [address] Radiation dose: Integrated Dose-length product (DLP) for this visit = 543 mGy*cm CT Dose Reduction Employed: Automated exposure control (AEC) Comparison: CT chest performed 06/14/2022 RESULT: Limitations: None. Lines, tubes, and devices: None. Lung parenchyma and airways: Postsurgical changes are noted in keeping with left upper lobe lobectomy. New patchy groundglass and reticular opacities are noted in the anterior left lower lobe (4:84), possibly on the basis of posttreatment change. There is been interval development of multiple new and enlarging bilateral pulmonary nodules. These following: Right upper lobe (4:23) 3 mm, stable Right upper lobe (4:88, 109) nodules measuring up to 6 mm, new Right middle lobe (4:118) 6 mm, previously 2 mm Right middle lobe (4:124, 126, 130) nodules measuring up to 6 mm, new Right lower lobe (4:100) 9 mm, previously 5 mm Right lower lobe (4:131) 12 mm, previously 5 mm Right lower lobe (4:107, 123) nodules measuring up to 5 mm, new Left lower lobe (4:88, 112, 118) 4 mm, new Left lower lobe (4:111) 16 mm, previously 7 mm The central airways are widely patent. Pleural space: There is stable loculated fluid anterior to the left lung. Lower neck, lymph nodes, and mediastinum: Subcentimeter mediastinal nodes are visualized which are not enlarged by size criteria. No new bulky intrathoracic adenopathy is visualized. Heart, pericardium, and thoracic vessels: The thoracic aorta and main pulmonary artery are normal in caliber. The cardiac chambers are normal in size. Coronary artery atherosclerotic calcification is noted. No pericardial effusion or thickening. Bones and soft tissues: Degenerative changes noted in the thoracic spine. No destructive osseous lesions are seen. Superficial soft tissues are unremarkable. Upper abdomen: A dedicated CT of the abdomen and pelvis was performed concurrently and is reported separately. Tile Finisher (topogram) images: No additional findings. DIVISION OF RADIOLOGY Provider, [facility] - 09/18/2022 * * *Final Report* * * DATE OF EXAM: Sep 17 2022 12:28PM [facility] 0539 - CT CHEST W IVCON / PROCEDURE REASON: Non-small cell lung cancer (NSCLC), monitor * * * * Physician Interpretation * * * * RESULT: EXAMINATION: CHEST CT WITH CONTRAST CLINICAL HISTORY: Non-small cell lung cancer. Technique: Spiral CT acquisition of the chest from the thoracic inlet to the upper abdomen following IV contrast. MQ: CTCW_6 Contrast: 120 mL Omnipaque [address] Radiation dose: Integrated Dose-length product (DLP) for this visit = 543 mGy*cm CT Dose Reduction Employed: Automated exposure control (AEC) Comparison: CT chest performed 06/14/2022 RESULT: Limitations: None. Lines, tubes, and devices: None. Lung parenchyma and airways: Postsurgical changes are noted in keeping with left upper lobe lobectomy. New patchy groundglass and reticular opacities are noted in the anterior left lower lobe (4:84), possibly on the basis of posttreatment change. There is been interval development of multiple new and enlarging bilateral pulmonary nodules. These following: Right upper lobe (4:23) 3 mm, stable Right upper lobe (4:88, 109) nodules measuring up to 6 mm, new Right middle lobe (4:118) 6 mm, previously 2 mm Right middle lobe (4:124, 126, 130) nodules measuring up to 6 mm, new Right lower lobe (4:100) 9 mm, previously 5 mm Right lower lobe (4:131) 12 mm, previously 5 mm Right lower lobe (4:107, 123) nodules measuring up to 5 mm, new Left lower lobe (4:88, 112, 118) 4 mm, new Left lower lobe (4:111) 16 mm, previously 7 mm The central airways are widely patent. Pleural space: There is stable loculated fluid anterior to the left lung. Lower neck, lymph nodes, and mediastinum: Subcentimeter mediastinal nodes are visualized which are not enlarged by size criteria. No new bulky intrathoracic adenopathy is visualized. Heart, pericardium, and thoracic vessels: The thoracic aorta and main pulmonary artery are normal in caliber. The cardiac chambers are normal in size. Coronary artery atherosclerotic calcification is noted. No pericardial effusion or thickening. Bones and soft tissues: Degenerative changes noted in the thoracic spine. No destructive osseous lesions are seen. Superficial soft tissues are unremarkable. Upper abdomen: A dedicated CT of the abdomen and pelvis was performed concurrently and is reported separately. Tile Finisher (topogram) images: No additional findings. IMPRESSION IMPRESSION: 1. Multiple new and enlarging bilateral pulmonary nodules, highly suspicious for progression of disease. 2. No evidence of new bulky intrathoracic lymphadenopathy. Transcribe Date/Time: Sep 18 2022 11:04A Dictated by: PRESTON DC MD This examination was interpreted and the report reviewed and electronically signed by: PRESTON DC MD on Sep 18 2022 11:27AM EST Thank you for allowing us to participate in the care of your patient. Should there be any questions regarding this interpretation, please call [phone]. If you are unable to reach us at the number above, please feel free to contact [facility] eRadiology at [phone]. [facility] Office Visiton 09-18-2022 Follow-up visit [id number] Sanjay Guruchi Maloney Sr. 1955 M Date Provider Department [facility] No family history on file Level of Service:21873 DE OFFICE/OUTPATIENT ESTABLISHED MOD MDM 30-39 MIN () Reason for Visit and Comments: Coronary Artery Disease [187] Peripheral Vascular Disease [458] Carotid Stenosis [Other] Hypertension [750356] Normal [facility] No Panel Informationon 09-17 Radiology Study observation (narrative) [facility] CBC W Auto Differential pane l (Bld)on 06-25-2022 Basophils (Bld) [#/Vol] <0.11 k/uL [facility] Basophils/100 WBC (Bld) 0.4 % [facility] Differential cell count method Nom (Bld) Auto [facility] Eosinophils (Bld) [#/Vol] 0.03 10*3/uL <0.46 k/uL [facility] Eosinophils/100 WBC (Bld) 0.6 % [facility] Erythrocyte distribution width (RBC) [Ratio] 14.1 % 11.5 - 15.0 % [facility] Hematocrit (Bld) [Volume fraction] 34.9 % Low 39.0 - 51.0 % [facility] Hemoglobin (Bld) [Mass/Vol] 12.5 g/dL Low 13.0 - 17.0 g/dL [facility] Immature granulocytes (Bld) [#/Vol] 0.03 10*3/uL <0.10 k/uL [facility] Immature granulocytes/100 WBC (Bld) 0.6 % [facility] Lymphocytes (Bld) [#/Vol] 0.75 10*3/uL Low 1.00 - 4.00 k/uL [facility] Lymphocytes/100 WBC (Bld) 14.0 % [facility] MCH (RBC) [Entitic mass] 32.9 pg 26.0 - 34.0 pg [facility] MCHC (RBC) [Mass/Vol] 35.8 g/dL 30.5 - 36.0 g/dL [facility] MCV (RBC) [Entitic vol] 91.8 fL 80.0 - 100.0 fL [facility] Monocytes (Bld) [#/Vol] 0.62 10*3/uL <0.87 k/uL [facility] [facility] Monocytes/100 WBC (Bld) 11.6 % [facility] Neutrophils (Bld) [#/Vol] 3.89 10*3/uL 1.45 - 7.50 k/uL [facility] Neutrophils/100 WBC (Bld) 72.8 % [facility] Nucleated RBC (Bld) [#/Vol] <0.01 k/uL [facility] Nucleated RBC/100 WBC (Bld) [Ratio] 0.0 /100 WBC [facility] Platelet mean volume (Bld) [Entitic vol] 9.8 fL 9.0 - 12.7 fL [facility] Platelets (Bld) [#/Vol] 208 10*3/uL 150 - 400 k/uL [facility] RBC (Bld) [#/Vol] 3.80 10*6/uL Low 4.20 - 6.00 m/uL [facility] WBC (Bld) [#/Vol] 5.34 10*3/uL 3.70 - 11.00 k/u L [facility] Comprehensive metabolic 2000 panelon 06-25-2022 Albumin [Mass/Vol] 4.4 g/dL 3.9 - 4.9 g/dL [facility] ALP [Catalytic activity/Vol] 72 U/L 38 - 113 U/L [facility] ALT [Catalytic activity/Vol] 27 U/L 10 - 54 U/L [facility] Anion gap [Moles/Vol] 12 mmol/L 9 - 18 mmol/L [facility] AST [Catalytic activity/Vol] 32 U/L 14 - 40 U/L [facility] Bilirubin [Mass/Vol] 0.7 mg/dL 0.2 - 1.3 mg/dL [facility] Calcium [Mass/Vol] 9.6 mg/dL 8.5 - 10.2 mg/dL [facility] Chloride [Moles/Vol] 97 mmol/L 97 - 105 mmol/L [facility] CO2 [Moles/Vol] 26 mmol/L 22 - 30 mmol/L [facility] Creatinine [Mass/Vol] 0.75 mg/dL 0.73 - 1.22 mg/dL [facility] Estimated Glomerular Filtration Rate 100 mL/min/1.73m >=60 mL/min/1.73m [facility] Glucose [Mass/Vol] 111 mg/dL High 74 - 99 mg/dL [facility] Potassium [Moles/Vol] 3.8 mmol/L 3.7 - 5.1 mmol/L [facility] Protein [Mass/Vol] 7.2 g/dL 6.3 - 8.0 g/dL [facility] Sodium [Moles/Vol] 135 mmol/L Low 136 - 144 mmol/L [facility] Urea nitrogen [Mass/Vol] 11 mg/dL 9 - 24 mg/dL [facility] CT CHEST W IVCONon [facility] CT Chest W contrast Anopo IMPRESSION: 1. Several indeterminate subcentimeter nodular opacities measuring up to 7 mm, new since 09/25/21. Consider interval follow-up. 2. Other noncalcified subcentimeter nodular opacities measuring less than 5 mm, stable. 3. New trace loculated left pleural effusion, most likely related to postoperative change. Transcribe Date/Time: Jun 14 2022 11:12A Dictated by: VICKI CORDERO MD This examination was interpreted and the report reviewed and electronically signed by: VICKI CORDERO MD on Jun 14 2022 12:11PM EST Thank you for allowing us to participate in the care of your patient. Should there be any questions regarding this interpretation, please call [phone]. If you are unable to reach us at the number above, please feel free to contact [facility] eRadiology at [phone]. 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 Technique: Spiral CT acquisition of the chest from the thoracic inlet to the upper abdomen following IV contrast. MQ: CTCW_6 Contrast: 50 mL Omnipaque [address] Radiation dose: Integrated Dose-length product (DLP) for this visit = 162 mGy*cm CT Dose Reduction Employed: Automated exposure control (AEC) Comparison: 09/25/21 RESULT: Limitations: None. Lines, tubes, and devices: None. Lung parenchyma and airways: Interval postoperative changes compatible with a left upper lobectomy. Calcified granulomas are noted. Mild emphysematous changes of the lungs. New subcentimeter nodular opacities measuring up to 7 mm in the right lower lobe (4:132), right middle lobe (4:113), right lower lobe (4:101), left lung (4) 12 Other noncalcified nodular opacities measuring less than 5 mm, stable. For example: Right upper lobe (4:23, 49, 72) Pleural space: New trace loculated left pleural effusion in the left anterior lung field, most likely related to postoperative change. Lower neck, lymph nodes, and mediastinum: The imaged thyroid gland is normal. No lymphadenopathy in the supraclavicular, axillary, mediastinal, or hilar regions. Heart, pericardium, and thoracic vessels: The thoracic aorta and main pulmonary artery are normal in caliber. The cardiac chambers are normal in size. Postoperative changes of the anterior chest. No pericardial effusion or thickening. Bones and soft tissues: Deformities of several left ribs most likely related to postoperative change. Upper abdomen: No evidence of an adrenal mass. Tile Finisher (topogram) images: No additional findings. 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 Technique: Spiral CT acquisition of the chest from the thoracic inlet to the upper abdomen following IV contrast. MQ: CTCW_6 Contrast: 50 mL Omnipaque [address] Radiation dose: Integrated Dose-length product (DLP) for this visit = 162 mGy*cm CT Dose Reduction Employed: Automated exposure control (AEC) Comparison: 09/25/21 RESULT: Limitations: None. Lines, tubes, and devices: None. Lung parenchyma and airways: Interval postoperative changes compatible with a left upper lobectomy. Calcified granulomas are noted. Mild emphysematous changes of the lungs. New subcentimeter nodular opacities measuring up to 7 mm in the right lower lobe (4:132), right middle lobe (4:113), right lower lobe (4:101), left lung (4) 12 Other noncalcified nodular opacities measuring less than 5 mm, stable. For example: Right upper lobe (4:23, 49, 72) Pleural space: New trace loculated left pleural effusion in the left anterior lung field, most likely related to postoperative change. Lower neck, lymph nodes, and mediastinum: The imaged thyroid gland is normal. No lymphadenopathy in the supraclavicular, axillary, mediastinal, or hilar regions. Heart, pericardium, and thoracic vessels: The thoracic aorta and main pulmonary artery are normal in caliber. The cardiac chambers are normal in size. Postoperative changes of the anterior chest. No pericardial effusion or thickening. Bones and soft tissues: Deformities of several left ribs most likely related to postoperative change. Upper abdomen: No evidence of an adrenal mass. Tile Finisher (topogram) images: No additional findings. IMPRESSION IMPRESSION: 1. Several indeterminate subcentimeter nodular opacities measuring up to 7 mm, new since 09/25/21. Consider interval follow-up. 2. Other noncalcified subcentimeter nodular opacities measuring less than 5 mm, stable. 3. New trace loculated left pleural effusion, most likely related to postoperative change. Transcribe Date/Time: Jun 14 2022 11:12A Dictated by: VICKI CORDERO MD This examination was interpreted and the report reviewed and electronically signed by: VICKI CORDERO MD on Jun 14 2022 12:11PM EST Thank you for allowing us to participate in the care of your patient. Should there be any questions regarding this interpretation, please call [phone]. If you are unable to reach us at the number above, please feel free to contact [facility] eRadiology at [phone]. [facility] Radiology Study observation (narrative) [facility] CT Chest W contrast IVOrdere d By: [facility] Provider on 06-14-2022 [facility] XR CHEST 2V FRONTAL/LATon [facility] XR Chest PA and Lateralon IMPRESSION: A small loculated left pleural effusion is felt to have progressed in size from the prior study, as above. Transcribe Date/Time: Jun 11 2022 4:32P Dictated by: RAPHAEL ERVIN MD This examination was interpreted and the report reviewed and electronically signed by: RAPHAEL ERVIN MD on Jun 11 2022 4:35PM EST Thank you for allowing us to participate in the care of your patient. Should there be any questions regarding this interpretation, please call [phone]. If you are unable to reach us at the number above, please feel free to contact [facility] eRadiology at [phone]. DIVISION OF RADIOLOGY * * *Final Report* * * DATE OF EXAM: Jun 11 2022 2:44PM [id number] - XR CHEST 2V FRONTAL/LAT / PROCEDURE REASON: Malignant neoplasm of unspecified part of unspecified bronchus or lung (HCC) * * * * Physician Interpretation * * * * RESULT: EXAMINATION: CHEST RADIOGRAPH (2 VIEW FRONTAL & LATERAL) CLINICAL HISTORY: Malignant neoplasm of unspecified part of unspecified bronchus or lung (HCC) MQ: XC2_6 EXAM DATE/TIME: 06/11/2022 2:44 PM COMPARISON: Chest x-ray dated 01/29/2022 RESULT: Lines, tubes, and devices: None. Lungs and pleura: Postoperative changes involving the left hemithorax, surgical suture material is noted within the left upper lobe adjacent to the left hilum, stable. Partially loculated anterior left pleural effusion is felt to have increased. No consolidative process. The pulmonary vasculature is within normal limits. Cardiomediastinal silhouette: Normal cardiomediastinal silhouette. Bones and soft tissues: Postoperative changes, compatible with prior median sternotomy. DIVISION OF RADIOLOGY Provider, [facility] - 06/11/2022 * * *Final Report* * * DATE OF EXAM: Jun 11 2022 2:44PM [id number] - XR CHEST 2V FRONTAL/LAT / PROCEDURE REASON: Malignant neoplasm of unspecified part of unspecified bronchus or lung (HCC) * * * * Physician Interpretation * * * * RESULT: EXAMINATION: CHEST RADIOGRAPH (2 VIEW FRONTAL & LATERAL) CLINICAL HISTORY: Malignant neoplasm of unspecified part of unspecified bronchus or lung (HCC) MQ: XC2_6 EXAM DATE/TIME: 06/11/2022 2:44 PM COMPARISON: Chest x-ray dated 01/29/2022 RESULT: Lines, tubes, and devices: None. Lungs and pleura: Postoperative changes involving the left hemithorax, surgical suture material is noted within the left upper lobe adjacent to the left hilum, stable. Partially loculated anterior left pleural effusion is felt to have increased. No consolidative process. The pulmonary vasculature is within normal limits. Cardiomediastinal silhouette: Normal cardiomediastinal silhouette. Bones and soft tissues: Postoperative changes, compatible with prior median sternotomy. IMPRESSION IMPRESSION: A small loculated left pleural effusion is felt to have progressed in size from the prior study, as above. Transcribe Date/Time: Jun 11 2022 4:32P Dictated by: RAPHAEL ERVIN MD This examination was interpreted and the report reviewed and electronically signed by: RAPHAEL ERVIN MD on Jun 11 2022 4:35PM EST Thank you for allowing us to participate in the care of your patient. Should there be any questions regarding this interpretation, please call [phone]. If you are unable to reach us at the number above, please feel free to contact [facility] eRadiology at [phone]. [facility] Radiology Study observation (narrative) [facility] XR Chest PA and LateralOrder ed By: [facility] Provider on 06-11-2022 [facility] MRI LSPINE WO W CONon 2021 [...] by: BRANDON HENRY Date: 2022-05-23 19:51 Normal [facility] XR LSPINE MIN 4 VIEWSon 10- XR LSPINE MIN 4 VIEWS EXAMINATION: XR [...] by: TRUDY GUTIERREZ Date: 2022-05-01 17:27 Normal [facility] BONE [place] WH BODYon [place] BONE [place] BODY EXAMINATION: [place] BONE [facility] BODY [...] by: BRANDON HENRY Date: 2022-04-12 21:44 Normal [facility] US CAROTID ART BILon US [...] by: BRANDON HENRY Date: 2022-03-22 17:14 Normal [facility] PRBC LEUKOREDUCEDon 02-11-20 ABO and Rh group Nom (Bld) Cross Match Result Compatible Unit Blood Type A Pos Unit Number [id number] Status Information Transfused Product ID Red Blood Cells Product Code [id number] Cross Match Result Compatible Unit Blood Type A Pos Unit Number [id number] Status Information Transfused Product ID Red Blood Cells Product Code [id number] Normal [facility] Comment on above: Performed By: #### P SAD #### [facility] [address] [place] [address] Dr. Usama Hobbs ABO RH RETYPEon 02-08-2022 ABO and Rh group Nom (Bld) DONE Normal [facility] Comment on above: Performed By: #### R ETYPE #### [facility] [address] [place] [address] Dr. Usama Hobbs LD LACTATE DEHYDROon 022 LDH [Catalytic activity/Vol] 186 U/L 135 - 225 U/L [facility] TYPE AND SCREENon 02-08-2022 TYPE AND SCREEN Negative Normal [facility] Comment on above: Performed By: #### P SAD #### [facility] [address] [place] [address] Dr. Usama Hobbs HEMOGRAM AND PLATELon 2021 Hematocrit (Bld) [Volume fraction] 21.0 % Critically low 42.0-54.0 [facility] Comment on above: Result Comment: dr haider marcos transfusionT&S ordered Performed By: #### B SERVICE PROVIDER, CMP #### [facility] [address] [place] [address] Dr. Usama Hobbs Hemoglobin (Bld) [Mass/Vol] 7.3 g/dL Critically low 14.0-18.0 [facility] Comment on above: Performed By: #### B SERVICE PROVIDER, CMP #### [facility] [address] [place] [address] Dr. Usama Hobbs MCH (RBC) [Entitic mass] 31.7 pg Normal 25.9-34.0 [facility] Comment on above: Performed By: #### B SERVICE PROVIDER, CMP #### [facility] [address] [place] [address] Dr. Usama Hobbs MCHC (RBC) [Mass/Vol] 34.8 g/dL Normal 29.9-35.2 [facility] Comment on above: Performed By: #### B SERVICE PROVIDER, CMP #### [facility] [address] [place] [address] Dr. Usama Hobbs MCV (RBC) [Entitic vol] 91.3 fL Normal 80.0-94.0 [facility] Comment on above: Performed By: #### B SERVICE PROVIDER, CMP #### [facility] [address] [place] [address] Dr. Usama Hobbs PLT 89 103/ul Critically low 150-450 [facility] Comment on above: Performed By: #### B SERVICE PROVIDER, CMP #### [facility] [address] [place] [address] Dr. Usama Hobbs RBC 2.30 106/ul Critically low 4.70-6.10 [facility] Comment on above: Performed By: #### B SERVICE PROVIDER, CMP #### [facility] [address] [place] [address] Dr. Usama Hobbs WBC 2.0 103/ul Critically low 4.0-11.0 [facility] Comment on above: Performed By: #### B SERVICE PROVIDER, CMP #### [facility] [address] [place] [address] Dr. Usama Hobbs RETIC COUNTon 02-07-2022 Reticulocytes (Bld) [#/Vol] 0.17873 10*3/uL 0.018 - 0.100 M/uL [facility] Reticulocytes (Bld) [#/Vol]o n 02-07-2022 Reticulocytes/100 RBC (Bld) 2.3 % High 0.4 - 2.0 % [facility] XR CHEST 2V FRONTAL/LATon [facility] BNPon 12-07-2021 Natriuretic peptide B (Bld) [Mass/Vol] 140.0 pg/mL Normal <=900.0 [facility] Comment on above: Performed By: #### P SAD #### [facility] [address] [place] [address] Dr. Usama Hobbs CBC AUTO DIFFon 12-07-2021 BASO # 0.0 103/ul Normal 0.0-0.1 [facility] Comment on above: Performed By: #### B SERVICE PROVIDER, CMP #### [facility] [address] [place] [address] Dr. Usama Hobbs Basophils/100 WBC (Bld) 0.2 % Normal 0.2-2.0 [facility] Comment on above: Performed By: #### B SERVICE PROVIDER, CMP #### [facility] [address] [place] [address] Dr. Usama Hobbs EO # 0.1 103/ul Normal 0.0-0.7 [facility] Comment on above: Performed By: #### B SERVICE PROVIDER, CMP #### [facility] [address] [place] [address] Dr. Usama Hobbs Eosinophils/100 WBC (Bld) 2.0 % Normal 0.9-7.0 [facility] Comment on above: Performed By: #### B SERVICE PROVIDER, CMP #### [facility] [address] [place] [address] Dr. Usama Hobbs Erythrocyte distribution width (RBC) [Ratio] 12.9 % Normal 11.0-15.0 [facility] Comment on above: Performed By: #### B SERVICE PROVIDER, CMP #### [facility] [address] [place] [address] Dr. Usama Hobbs Hematocrit (Bld) [Volume fraction] 32.6 % Critically low 42.0-54.0 [facility] Comment on above: Performed By: #### B SERVICE PROVIDER, CMP #### [facility] [address] [place] [address] Dr. Usama Hobbs Hemoglobin (Bld) [Mass/Vol] 11.0 g/dL Critically low 14.0-18.0 [facility] Comment on above: Performed By: #### B SERVICE PROVIDER, CMP #### [facility] [address] [place] [address] Dr. Usama Hobbs IG # 0.02 10e3/ul Normal 0.00-0.03 [facility] Comment on above: Performed By: #### B SERVICE PROVIDER, CMP #### [facility] [address] [place] [address] Dr. Usama Hobbs IG % 0.4 % Normal 0.0-0.5 [facility] Comment on above: Performed By: #### B SERVICE PROVIDER, CMP #### [facility] [address] [address] [address] Usama Hobbs LYMPH # 0.6 103/ul Critically low 1.2-3.8 [facility] Comment on above: Performed By: #### B SERVICE PROVIDER, CMP #### [facility] [address] [address] [address] Usama Hobbs Lymphocytes/100 WBC (Bld) 12.9 % Critically low 20.5-60.0 [facility] Comment on above: Performed By: #### B SERVICE PROVIDER, CMP #### [facility] [address] [address] [address] Usama Hobbs MANUAL DIFF REQ NO Normal [facility] Comment on above: Performed By: #### B SERVICE PROVIDER, CMP #### [facility] [address] [place] [address] Dr. Usama Hobbs MCH (RBC) [Entitic mass] 30.1 pg Normal 25.9-34.0 [facility] Comment on above: Performed By: #### B SERVICE PROVIDER, CMP #### [facility] [address] [place] [address] Dr. Usama Hobbs MCHC (RBC) [Mass/Vol] 33.7 g/dL Normal 29.9-35.2 [facility] Comment on above: Performed By: #### B SERVICE PROVIDER, CMP #### [facility] [address] [place] [address] Dr. Usama Hobbs MCV (RBC) [Entitic vol] 89.1 fL Normal 80.0-94.0 [facility] Comment on above: Performed By: #### B SERVICE PROVIDER, CMP #### [facility] [address] [place] [address] Dr. Usama Hobbs MONO # 0.3 103/ul Normal 0.3-0.8 [facility] Comment on above: Performed By: #### B SERVICE PROVIDER, CMP #### [facility] [address] [place] [address] Dr. Usama Hobbs Monocytes/100 WBC (Bld) 5.1 % Normal 1.7-12.0 [facility] Comment on above: Performed By: #### B SERVICE PROVIDER, CMP #### [facility] [address] [address] [address] Usama Hobbs NEUT # 3.9 103/ul Normal 1.4-6.5 [facility] Comment on above: Performed By: #### B SERVICE PROVIDER, CMP #### [facility] [address] [address] [address] Usama Hobbs Neutrophils/100 WBC (Bld) 79.4 % Critically high 43.0-75.0 [facility] Comment on above: Performed By: #### B SERVICE PROVIDER, CMP #### [facility] [address] [place] [address] Dr. Usama Hobbs Platelet mean volume (Bld) [Entitic vol] 10.9 fL Normal 9.5-13.5 [facility] Comment on above: Performed By: #### B SERVICE PROVIDER, CMP #### [facility] [address] [place] [address] Dr. Usama Hobbs PLT 182 103/ul Normal 150-450 [facility] Comment on above: Performed By: #### B SERVICE PROVIDER, CMP #### [facility] [address] [place] [address] Dr. Usama Hobbs RBC 3.66 106/ul Critically low 4.70-6.10 [facility] Comment on above: Performed By: #### B SERVICE PROVIDER, CMP #### [facility] [address] [address] [address] Usama Hobbs WBC 4.9 103/ul Normal 4.0-11.0 [facility] Comment on above: Performed By: #### B SERVICE PROVIDER, CMP #### [facility] [address] [place] [address] Dr. Usama Hobbs TSHon 12-07-2021 TSH 1.474 uIU/mL Normal 0.358-3.740 [facility] Comment on above: Performed By: #### P SAD #### [facility] [address] [place] [address] Dr. Usama Hobbs TSH RANGE SEE BELOW Normal [facility] Comment on above: Result Comment: <0.3 4 UIU/ml HYPERTHYROID 0.34-5.60 UIU/ml EUTHYROID >5.60 UIU/ml HYPOTHYROID Performed By: #### P SAD #### [facility] [address] [place] [address] Dr. Usama Hobbs URIC ACID BLOODon 11-26-2021 Urate [Mass/Vol] 7.0 mg/dL 4.0 - 8.1 mg/dL [facility] Basic metabolic 1999 panelon 11-21-2021 Anion gap [Moles/Vol] 12 mmol/L 9 - 18 mmol/L [facility] Calcium [Mass/Vol] 9.2 mg/dL 8.5 - 10.2 mg/dL [facility] Chloride [Moles/Vol] 102 mmol/L 97 - 105 mmol/L [facility] CO2 [Moles/Vol] 25 mmol/L 22 - 30 mmol/L [facility] Creatinine [Mass/Vol] 1.86 mg/dL High 0.73 - 1.22 mg/dL [facility] Estimated Glomerular Filtration Rate 40 mL/min/1.73m Low >=60 mL/min/1.73m [facility] Glucose [Mass/Vol] 87 mg/dL 74 - 99 mg/dL [facility] Potassium [Moles/Vol] 3.7 mmol/L 3.7 - 5.1 mmol/L [facility] Sodium [Moles/Vol] 139 mmol/L 136 - 144 mmol/L [facility] Urea nitrogen [Mass/Vol] 29 mg/dL High 9 - 24 mg/dL [facility] Basic metabolic 1999 panelon 11-19-2021 Anion gap [Moles/Vol] 12 mmol/L 9 - 18 mmol/L [facility] Calcium [Mass/Vol] 9.2 mg/dL 8.5 - 10.2 mg/dL [facility] Chloride [Moles/Vol] 104 mmol/L 97 - 105 mmol/L [facility] CO2 [Moles/Vol] 24 mmol/L 22 - 30 mmol/L [facility] Creatinine [Mass/Vol] 2.09 mg/dL High 0.73 - 1.22 mg/dL [facility] Estimated Glomerular Filtration Rate 35 mL/min/1.73m Low >=60 mL/min/1.73m [facility] Glucose [Mass/Vol] 79 mg/dL 74 - 99 mg/dL [facility] Potassium [Moles/Vol] 3.6 mmol/L Low 3.7 - 5.1 mmol/L [facility] Sodium [Moles/Vol] 140 mmol/L 136 - 144 mmol/L [facility] Urea nitrogen [Mass/Vol] 27 mg/dL High 9 - 24 mg/dL [facility] BNPon 11-18-2021 Natriuretic peptide B (Bld) [Mass/Vol] 2644.0 pg/mL Critically high <=900.0 [facility] Comment on above: Performed By: #### B SERVICE PROVIDER, CMP #### [facility] [address] [place] [address] Dr. Usama Hobbs CBC W MANUAL DIFFon 11-19-19 22 ATYPICAL LYMPH # Normal [facility] Comment on above: Performed By: #### C LUIS #### [facility] [address] [place] [address] Dr. Usama Hobbs ATYPICAL LYMPH % Normal [facility] Comment on above: Performed By: #### C LUIS #### [facility] [address] [place] [address] Dr. Usama Hobbs BAND # 0.0 103/ul Normal 0.0-0.3 [facility] Comment on above: Performed By: #### C LUIS #### [facility] [address] [place] [address] Dr. Usama Hobsb BAND % 2 % Normal 0-5 [facility] Comment on above: Performed By: #### C BCMAN #### [facility] [address] [place] [address] Dr. Usama Hobbs BASOM # 0.00 103/ul Normal 0.00-0.10 [facility] Comment on above: Performed By: #### C LUIS #### [facility] [address] [place] [address] Dr. Usama Hobbs BASOM % 0.0 % Critically low 0.2-2.0 [facility] Comment on above: Performed By: #### C LUIS #### [facility] [address] [place] [address] Dr. Usama Hobbs BLAST # Normal [facility] Comment on above: Performed By: #### C LUIS #### [facility] [address] [place] [address] Dr. Usama Hobbs BLAST % Normal [facility] Comment on above: Performed By: #### C LUIS #### [facility] [address] [place] [address] Dr. Usama Hobbs CORRECTED WBC Normal 4.0-11.0 [facility] Comment on above: Performed By: #### C LUIS #### [facility] [address] [place] [address] Dr. Usama Hobbs EOS # 0.10 103/ul Normal 0.00-0.70 [facility] Comment on above: Performed By: #### C LUIS #### [facility] [address] [place] [address] Dr. Usama Hobbs EOS% 5.0 % Normal 0.9-7.0 [facility] Comment on above: Performed By: #### C LUIS #### [facility] [address] [place] [address] Dr. Usama Hobbs HCT 28.8 % Critically low 42.0-54.0 [facility] Comment on above: Performed By: #### C LUIS #### [facility] [address] [place] [address] Dr. Usama Hobbs HGB 9.4 g/dl Critically low 14.0-18.0 [facility] Comment on above: Performed By: #### C LUIS #### [facility] [address] [place] [address] Dr. Usama Hobbs LYMPHM # 0.71 103/ul Critically low 1.20-3.80 [facility] Comment on above: Performed By: #### C LUIS #### [facility] [address] [place] [address] Dr. Usama Hobbs LYMPHM% 34.0 % Normal 20.5-60.0 [facility] Comment on above: Performed By: #### C LUIS #### [facility] [address] [place] [address] Dr. Usama Hobbs MCH 30.0 pg Normal 25.9-34.0 [facility] Comment on above: Performed By: #### C LUIS #### [facility] [address] [place] [address] Dr. Usama Hobbs MCHC 32.6 g/dl Normal 29.9-35.2 [facility] Comment on above: Performed By: #### C LUIS #### [facility] [address] [place] [address] Dr. Usama Hobbs MCV 92.0 fL Normal 80.0-94.0 [facility] Comment on above: Performed By: #### C LUIS #### [facility] [address] [place] [address] Dr. Usama Hobbs METAMYELOCYTE # Normal [facility] Comment on above: Performed By: #### C LUIS #### [facility] [address] [place] [address] Dr. Usama Hobbs METAMYELOCYTE % Normal [facility] Comment on above: Performed By: #### C LUIS #### [facility] [address] [place] [address] Dr. Usama Hobbs MONOM# 0.10 103/ul Critically low 0.30-0.80 [facility] Comment on above: Performed By: #### C LUIS #### [facility] [address] [place] [address] Dr. Usama Hobbs MONOM% 5.0 % Normal 1.7-12.0 [facility] Comment on above: Performed By: #### C LUIS #### [facility] [address] [place] [address] Dr. Usama Hobbs MPV 10.7 fL Normal 9.5-13.5 [facility] Comment on above: Performed By: #### C LUIS #### [facility] [address] [place] [address] Dr. Usama Hobbs MYELOCYTE # Normal [facility] Comment on above: Performed By: #### C LUIS #### [facility] [address] [place] [address] Dr. Usama Hbobs MYELOCYTE % Normal [facility] Comment on above: Performed By: #### C LUIS #### [facility] [address] [place] [address] Dr. Usama Hobbs NRBC Normal [facility] Comment on above: Performed By: #### C LUIS #### [facility] [address] [place] [address] Dr. Usama Hobbs PLT 149 103/ul Critically low 150-450 [facility] Comment on above: Performed By: #### C LUIS #### [facility] [address] [place] [address] Dr. Usama Hobbs RBC 3.13 106/ul Critically low 4.70-6.10 [facility] Comment on above: Performed By: #### C LUIS #### [facility] [address] [place] [address] Dr. Usama Hobbs RDW 12.3 % Normal 11.0-15.0 [facility] Comment on above: Performed By: #### C LUIS #### [facility] [address] [place] [address] Dr. Usama Hobbs SEG # 1.13 103/ul Critically low 1.40-6.50 [facility] Comment on above: Performed By: #### C LUIS #### [facility] [address] [place] [address] Dr. Usama Hobbs SEG % 54.0 % Normal 43.0-75.0 [facility] Comment on above: Performed By: #### C LUIS #### [facility] [address] [place] [address] Dr. Usama Hobbs WBC 2.1 103/ul Critically low 4.0-11.0 [facility] Comment on above: Performed By: #### C LUIS #### [facility] [address] [place] [address] Dr. Usama Hobbs CULTURE SPUTUMon 11-18-2021 CULTURE SPUTUM Culture Observations: Normal respiratory callie also seen Isolate 1 Adwoa Albicans Growth of Normal [facility] Comment on above: Performed By: #### P SAD #### [facility] [address] [address] [address] Usama Hobbs PROF 14(COMP METB)on 022 Albumin [Mass/Vol] 2.8 g/dL Critically low 3.4-5.0 [facility] Comment on above: Performed By: #### B SERVICE PROVIDER, CMP #### [facility] [address] [place] [address] Dr. Usama Hobbs Albumin/Globulin [Mass ratio] 0.8 {ratio} Normal [facility] Comment on above: Performed By: #### B SERVICE PROVIDER, CMP #### [facility] [address] [place] [address] Dr. Usama Hobbs ALP [Catalytic activity/Vol] 56 U/L Normal 46-116 [facility] Comment on above: Performed By: #### B SERVICE PROVIDER, CMP #### [facility] [address] [place] [address] Dr. Usama Hobbs ALT [Catalytic activity/Vol] 22 U/L Normal 16-63 [facility] Comment on above: Performed By: #### B SERVICE PROVIDER, CMP #### [facility] [address] [place] [address] Dr. Usama Hobbs Anion gap [Moles/Vol] 14.5 mmol/L Normal [facility] Comment on above: Performed By: #### B SERVICE PROVIDER, CMP #### [facility] [address] [place] [address] Dr. Usama Hobbs AST [Catalytic activity/Vol] 17 U/L Normal 15-37 [facility] Comment on above: Performed By: #### B SERVICE PROVIDER, CMP #### [facility] [address] [place] [address] Dr. Usama Hobbs Bilirubin [Mass/Vol] 0.4 mg/dL Normal 0.2-1.0 [facility] Comment on above: Performed By: #### B SERVICE PROVIDER, CMP #### [facility] [address] [place] [address] Dr. Usama Hobbs Calcium [Mass/Vol] 7.8 mg/dL Critically low 8.5-10.1 [facility] Comment on above: Performed By: #### B SERVICE PROVIDER, CMP #### [facility] [address] [address] [address] Usama Hobbs Chloride [Moles/Vol] 104 mmol/L Normal 98-107 [facility] Comment on above: Performed By: #### B SERVICE PROVIDER, CMP #### [facility] [address] [place] [address] Dr. Usama Hobbs CO2 [Moles/Vol] 25.0 mmol/L Normal 21.0-32.0 [facility] Comment on above: Performed By: #### B SERVICE PROVIDER, CMP #### [facility] [address] [place] [address] Dr. Usama Hobbs Creatinine [Mass/Vol] 1.97 mg/dL Critically high 0.70-1.30 [facility] Comment on above: Performed By: #### B SERVICE PROVIDER, CMP #### [facility] [address] [place] [address] Dr. Usama Hobbs EGFR-AF ALGERIAN 42 mL/min/1.73m2 Critically low >=60 [facility] Comment on above: Performed By: #### B SERVICE PROVIDER, CMP #### [facility] [address] [place] [address] Dr. Usama Hobbs EGFR-NON AF ALGERIAN 34 mL/min/1.73m2 Critically low >=60 [facility] Comment on above: Performed By: #### B SERVICE PROVIDER, CMP #### [facility] [address] [place] [address] Dr. Usama Hobbs Globulin (S) [Mass/Vol] 3.3 g/dL Normal [facility] Comment on above: Performed By: #### B SERVICE PROVIDER, CMP #### [facility] [address] [place] [address] Dr. Usama Hobbs Glucose [Mass/Vol] 91 mg/dL Normal 74-106 [facility] Comment on above: Performed By: #### B SERVICE PROVIDER, CMP #### [facility] [address] [place] [address] Dr. Usama Hobbs Potassium [Moles/Vol] 3.5 mmol/L Normal 3.5-5.1 [facility] Comment on above: Performed By: #### B SERVICE PROVIDER, CMP #### [facility] [address] [place] [address] Dr. Usama Hobbs Protein [Mass/Vol] 6.1 g/dL Normal 6.1-8.2 [facility] Comment on above: Performed By: #### B SERVICE PROVIDER, CMP #### [facility] [address] [place] [address] Dr. Usama Hobbs Sodium [Moles/Vol] 140 mmol/L Normal 136-145 [facility] Comment on above: Performed By: #### B SERVICE PROVIDER, CMP #### [facility] [address] [place] [address] Dr. Usama Hobbs Urea nitrogen [Mass/Vol] 18.0 mg/dL Normal 7.0-18.0 [facility] Comment on above: Performed By: #### B SERVICE PROVIDER, CMP #### [facility] [address] [place] [address] Dr. Usama Hobbs Urea nitrogen/Creatinine [Mass ratio] 9.1 mg/mg Normal [facility] Comment on above: Performed By: #### B SERVICE PROVIDER, CMP #### [facility] [address] [place] [address] Dr. Usama Hobbs T3, TOTAL (TRIIODOTHYRONINE) on 11-18-2021 T3, TOTAL 101 ng/dL Normal 71-180 [facility] Comment on above: Performed By: #### T 3TOTAL #### [facility] [address] [place] [address] Dr. Usama Hobbs BNPon 11-17-2021 Natriuretic peptide B (Bld) [Mass/Vol] 6047.0 pg/mL Critically high <=900.0 [facility] Comment on above: Performed By: #### C MP, BNP #### [facility] [address] [place] [address] Dr. Usama Hobbs CBC AUTO DIFFon 11-17-2021 BASO # 0.0 103/ul Normal 0.0-0.1 [facility] Comment on above: Performed By: #### C BC #### [facility] [address] [address] [address] Usama Hobbs Basophils/100 WBC (Bld) 0.4 % Normal 0.2-2.0 [facility] Comment on above: Performed By: #### C BC #### [facility] [address] [place] [address] Dr. Usama Hobbs EO # 0.1 103/ul Normal 0.0-0.7 [facility] Comment on above: Performed By: #### C BC #### [facility] [address] [place] [address] Dr. Usama Hobbs Eosinophils/100 WBC (Bld) 6.2 % Normal 0.9-7.0 [facility] Comment on above: Performed By: #### C BC #### [facility] [address] [place] [address] Dr. Usama Hobbs Erythrocyte distribution width (RBC) [Ratio] 12.3 % Normal 11.0-15.0 [facility] Comment on above: Performed By: #### C BC #### [facility] [address] [place] [address] Dr. Usama Hobbs Hematocrit (Bld) [Volume fraction] 31.8 % Critically low 42.0-54.0 [facility] Comment on above: Performed By: #### C BC #### [facility] [address] [place] [address] Dr. Usama Hobbs Hemoglobin (Bld) [Mass/Vol] 10.5 g/dL Critically low 14.0-18.0 [facility] Comment on above: Performed By: #### C BC #### [facility] [address] [place] [address] Dr. Usama Hobbs IG # 0.01 10e3/ul Normal 0.00-0.03 [facility] Comment on above: Performed By: #### C BC #### [facility] [address] [place] [address] Dr. Usama Hobbs IG % 0.4 % Normal 0.0-0.5 [facility] Comment on above: Performed By: #### C BC #### [facility] [address] [place] [address] Dr. Usama Hobbs LYMPH # 0.6 103/ul Critically low 1.2-3.8 [facility] Comment on above: Performed By: #### C BC #### [facility] [address] [place] [address] Dr. Usama Hobbs Lymphocytes/100 WBC (Bld) 27.4 % Normal 20.5-60.0 [facility] Comment on above: Performed By: #### C BC #### [facility] [address] [place] [address] Dr. Usama Hobbs MANUAL DIFF REQ NO Normal [facility] Comment on above: Performed By: #### C BC #### [facility] [address] [place] [address] Dr. Usama Hobbs MCH (RBC) [Entitic mass] 30.3 pg Normal 25.9-34.0 [facility] Comment on above: Performed By: #### C BC #### [facility] [address] [place] [address] Dr. Usama Hobbs MCHC (RBC) [Mass/Vol] 33.0 g/dL Normal 29.9-35.2 [facility] Comment on above: Performed By: #### C BC #### [facility] [address] [place] [address] Dr. Usama Hobbs MCV (RBC) [Entitic vol] 91.6 fL Normal 80.0-94.0 [facility] Comment on above: Performed By: #### C BC #### [facility] [address] [place] [address] Dr. Usama Hobbs MONO # 0.4 103/ul Normal 0.3-0.8 [facility] Comment on above: Performed By: #### C BC #### [facility] [address] [place] [address] Dr. Usama Hobbs Monocytes/100 WBC (Bld) 17.3 % Critically high 1.7-12.0 [facility] Comment on above: Performed By: #### C BC #### [facility] [address] [place] [address] Dr. Usama Hobbs NEUT # 1.1 103/ul Critically low 1.4-6.5 [facility] Comment on above: Performed By: #### C BC #### [facility] [address] [place] [address] Dr. Usama Hobbs Neutrophils/100 WBC (Bld) 48.3 % Normal 43.0-75.0 [facility] Comment on above: Performed By: #### C BC #### [facility] [address] [place] [address] Dr. Usama Hobbs Platelet mean volume (Bld) [Entitic vol] 10.9 fL Normal 9.5-13.5 [facility] Comment on above: Performed By: #### C BC #### [facility] [address] [place] [address] Dr. Usama Hobbs PLT 174 103/ul Normal 150-450 [facility] Comment on above: Performed By: #### C BC #### [facility] [address] [place] [address] Dr. Usama Hobbs RBC 3.47 106/ul Critically low 4.70-6.10 [facility] Comment on above: Performed By: #### C BC #### [facility] [address] [place] [address] Dr. Usama Hobbs WBC 2.3 103/ul Critically low 4.0-11.0 [facility] Comment on above: Performed By: #### C BC #### [facility] [address] [place] [address] Dr. Usama Hobbs PROF 14(COMP METB)on 022 Albumin [Mass/Vol] 3.3 g/dL Critically low 3.4-5.0 [facility] Comment on above: Performed By: #### C MP, BNP #### [facility] [address] [place] [address] Dr. Usama Hobbs Albumin/Globulin [Mass ratio] 0.9 {ratio} Normal [facility] Comment on above: Performed By: #### C MP, BNP #### [facility] [address] [place] [address] Dr. Usama Hobbs ALP [Catalytic activity/Vol] 73 U/L Normal 46-116 [facility] Comment on above: Performed By: #### C MP, BNP #### [facility] [address] [place] [address] Dr. Usama Hobbs ALT [Catalytic activity/Vol] 31 U/L Normal 16-63 [facility] Comment on above: Performed By: #### C MP, BNP #### [facility] [address] [place] [address] Dr. Usama Hobbs Anion gap [Moles/Vol] 13.8 mmol/L Normal [facility] Comment on above: Performed By: #### C MP, BNP #### [facility] [address] [place] [address] Dr. Usama Hobbs AST [Catalytic activity/Vol] 22 U/L Normal 15-37 [facility] Comment on above: Performed By: #### C MP, BNP #### [facility] [address] [place] [address] Dr. Usama Hobbs Bilirubin [Mass/Vol] 0.6 mg/dL Normal 0.2-1.0 [facility] Comment on above: Performed By: #### C MP, BNP #### [facility] [address] [place] [address] Dr. Usama Hobbs Calcium [Mass/Vol] 8.3 mg/dL Critically low 8.5-10.1 [facility] Comment on above: Performed By: #### C MP, BNP #### [facility] [address] [place] [address] Dr. Usama Hobbs Chloride [Moles/Vol] 105 mmol/L Normal 98-107 [facility] Comment on above: Performed By: #### C MP, BNP #### [facility] [address] [place] [address] Dr. Usama Hobbs CO2 [Moles/Vol] 26.1 mmol/L Normal 21.0-32.0 [facility] Comment on above: Performed By: #### C MP, BNP #### [facility] [address] [place] [address] Dr. Usama Hobbs Creatinine [Mass/Vol] 2.05 mg/dL Critically high 0.70-1.30 [facility] Comment on above: Performed By: #### C MP, BNP #### [facility] [address] [address] [address] Usama Hobbs EGFR-AF ALGERIAN 40 mL/min/1.73m2 Critically low >=60 [facility] Comment on above: Performed By: #### C MP, BNP #### [facility] [address] [address] [address] Usama Hobbs EGFR-NON AF ALGERIAN 33 mL/min/1.73m2 Critically low >=60 [facility] Comment on above: Performed By: #### C MP, BNP #### [facility] [address] [place] [address] Dr. Usama Hobbs Globulin (S) [Mass/Vol] 3.7 g/dL Normal [facility] Comment on above: Performed By: #### C MP, BNP #### [facility] [address] [place] [address] Dr. Usama Hobbs Glucose [Mass/Vol] 86 mg/dL Normal 74-106 [facility] Comment on above: Performed By: #### C MP, BNP #### [facility] [address] [place] [address] Dr. Usama Hobbs Potassium [Moles/Vol] 3.9 mmol/L Normal 3.5-5.1 [facility] Comment on above: Performed By: #### C MP, BNP #### [facility] [address] [place] [address] Dr. Usama Hobbs Protein [Mass/Vol] 7.0 g/dL Normal 6.1-8.2 [facility] Comment on above: Performed By: #### C MP, BNP #### [facility] [address] [place] [address] Dr. Usama Hobbs Sodium [Moles/Vol] 141 mmol/L Normal 136-145 [facility] Comment on above: Performed By: #### C MP, BNP #### [facility] [address] [place] [address] Dr. Usama Hobbs Urea nitrogen [Mass/Vol] 21.0 mg/dL Critically high 7.0-18.0 [facility] Comment on above: Performed By: #### C MP, BNP #### [facility] [address] [address] [address] Usama Hobbs Urea nitrogen/Creatinine [Mass ratio] 10.2 mg/mg Normal [facility] Comment on above: Performed By: #### C MP, BNP #### [facility] [address] [address] [address] Usama Hobbs Basic metabolic 2000 panelon 11-16-2021 Anion gap [Moles/Vol] 16 mmol/L 9 - 18 mmol/L [facility] Calcium [Mass/Vol] 9.2 mg/dL 8.5 - 10.2 mg/dL [facility] Chloride [Moles/Vol] 102 mmol/L 97 - 105 mmol/L [facility] CO2 [Moles/Vol] 20 mmol/L Low 22 - 30 mmol/L [facility] Creatinine [Mass/Vol] 2.33 mg/dL High 0.73 - 1.22 mg/dL [facility] Estimated Glomerular Filtration Rate 30 mL/min/1.73m Low >=60 mL/min/1.73m [facility] Glucose [Mass/Vol] 78 mg/dL 74 - 99 mg/dL [facility] Potassium [Moles/Vol] 3.9 mmol/L 3.7 - 5.1 mmol/L [facility] Sodium [Moles/Vol] 138 mmol/L 136 - 144 mmol/L [facility] Urea nitrogen [Mass/Vol] 27 mg/dL High 9 - 24 mg/dL [facility] CBC W MANUAL DIFFon 11-17-19 22 ATYPICAL LYMPH # Normal [facility] Comment on above: Performed By: #### B SERVICE PROVIDER, CMP #### [facility] [address] [place] [address] Dr. Usama Hobbs ATYPICAL LYMPH % Normal [facility] Comment on above: Performed By: #### B SERVICE PROVIDER, CMP #### [facility] [address] [address] [address] Usama Hobbs BAND # 0.0 103/ul Normal 0.0-0.3 [facility] Comment on above: Performed By: #### B SERVICE PROVIDER, CMP #### [facility] [address] [place] [address] Dr. Usama Hobbs BAND % 0 % Normal 0-5 [facility] Comment on above: Performed By: #### B SERVICE PROVIDER, CMP #### [facility] [address] [place] [address] Dr. Usama Hobbs BASOM # 0.00 103/ul Normal 0.00-0.10 [facility] Comment on above: Performed By: #### B SERVICE PROVIDER, CMP #### [facility] [address] [place] [address] Dr. Usama Hobbs BASOM % 0.0 % Critically low 0.2-2.0 [facility] Comment on above: Performed By: #### B SERVICE PROVIDER, CMP #### [facility] [address] [place] [address] Dr. Usama Hobbs BLAST # Normal [facility] Comment on above: Performed By: #### B SERVICE PROVIDER, CMP #### [facility] [address] [place] [address] Dr. Usama Hobbs BLAST % Normal [facility] Comment on above: Performed By: #### B SERVICE PROVIDER, CMP #### [facility] [address] [place] [address] Dr. Usama Hobbs CORRECTED WBC Normal 4.0-11.0 [facility] Comment on above: Performed By: #### B SERVICE PROVIDER, CMP #### [facility] [address] [place] [address] Dr. Usama Hobbs EOS # 0.14 103/ul Normal 0.00-0.70 [facility] Comment on above: Performed By: #### B SERVICE PROVIDER, CMP #### [facility] [address] [place] [address] Dr. Usama Hobbs EOS% 8.0 % Critically high 0.9-7.0 [facility] Comment on above: Performed By: #### B SERVICE PROVIDER, CMP #### [facility] [address] [place] [address] Dr. Usama Hobbs HCT 28.7 % Critically low 42.0-54.0 [facility] Comment on above: Performed By: #### B SERVICE PROVIDER, CMP #### [facility] [address] [address] [address] Usama Hobbs HGB 9.7 g/dl Critically low 14.0-18.0 [facility] Comment on above: Performed By: #### B SERVICE PROVIDER, CMP #### [facility] [address] [address] [address] Usama Hobbs LYMPHM # 0.59 103/ul Critically low 1.20-3.80 [facility] Comment on above: Performed By: #### B SERVICE PROVIDER, CMP #### [facility] [address] [address] [address] Usama Hobbs LYMPHM% 33.0 % Normal 20.5-60.0 [facility] Comment on above: Performed By: #### B SERVICE PROVIDER, CMP #### [facility] [address] [place] [address] Dr. Usama Hobbs MCH 30.9 pg Normal 25.9-34.0 [facility] Comment on above: Performed By: #### B SERVICE PROVIDER, CMP #### [facility] [address] [address] [address] Usama Hobbs MCHC 33.8 g/dl Normal 29.9-35.2 [facility] Comment on above: Performed By: #### B SERVICE PROVIDER, CMP #### [facility] [address] [place] [address] Dr. Usama Hobbs MCV 91.4 fL Normal 80.0-94.0 [facility] Comment on above: Performed By: #### B SERVICE PROVIDER, CMP #### [facility] [address] [address] [address] Usama Hobbs METAMYELOCYTE # 0.0 103/ul Normal [facility] Comment on above: Performed By: #### B SERVICE PROVIDER, CMP #### [facility] [address] [address] [address] Usama Hobbs METAMYELOCYTE % 1 % Normal [facility] Comment on above: Performed By: #### B SERVICE PROVIDER, CMP #### [facility] [address] [place] [address] Dr. Usama Hobbs MONOM# 0.14 103/ul Critically low 0.30-0.80 [facility] Comment on above: Performed By: #### B SERVICE PROVIDER, CMP #### [facility] [address] [place] [address] Dr. Usama Hobbs MONOM% 8.0 % Normal 1.7-12.0 [facility] Comment on above: Performed By: #### B SERVICE PROVIDER, CMP #### [facility] [address] [place] [address] Dr. Usama Hobbs MPV 10.5 fL Normal 9.5-13.5 [facility] Comment on above: Performed By: #### B SERVICE PROVIDER, CMP #### [facility] [address] [place] [address] Dr. Usama Hobbs MYELOCYTE # 0.1 103/ul Normal [facility] Comment on above: Performed By: #### B SERVICE PROVIDER, CMP #### [facility] [address] [place] [address] Dr. Usama Hobbs MYELOCYTE % 5 % Normal [facility] Comment on above: Performed By: #### B SERVICE PROVIDER, CMP #### [facility] [address] [place] [address] Dr. Usama Hobbs NRBC Normal [facility] Comment on above: Performed By: #### B SERVICE PROVIDER, CMP #### [facility] [address] [place] [address] Dr. Usama Hobbs PLT 163 103/ul Normal 150-450 [facility] Comment on above: Performed By: #### B SERVICE PROVIDER, CMP #### [facility] [address] [place] [address] Dr. Usama Hobbs RBC 3.14 106/ul Critically low 4.70-6.10 [facility] Comment on above: Performed By: #### B SERVICE PROVIDER, CMP #### [facility] [address] [place] [address] Dr. Usama Hobbs RDW 12.4 % Normal 11.0-15.0 [facility] Comment on above: Performed By: #### B SERVICE PROVIDER, CMP #### [facility] [address] [place], [place] [address] Dr. Usama Hobbs SEG # 0.81 103/ul Critically low 1.40-6.50 [facility] Comment on above: Performed By: #### B SERVICE PROVIDER, CMP #### [facility] [address] [address] [address] Usama Hobbs SEG % 45.0 % Normal 43.0-75.0 [facility] Comment on above: Performed By: #### B SERVICE PROVIDER, CMP #### [facility] [address] [address] [address] Usama Hobbs WBC 1.8 103/ul Critically low 4.0-11.0 [facility] Comment on above: Performed By: #### B SERVICE PROVIDER, CMP #### [facility] [address] HEAD WO CONon [...] JOSUE SINGH Date: 2021-11-16 18:41 Normal [facility]20 SARS-CoV-2 (COVID-19) RNA TONYA+probe Ql (Unsp spec) Not detected Normal NOT DETECTED [facility] Comment on above: Result Comment: This test is not yet approved or cleared by the [place] FDA. When there are no FDA-approved or cleared tests available, and other criteria are met, FDA can make tests available under an emergency access mechanism called an Emergency Use Authorization (EUA). The EUA for this test is supported by the [place] of Health and Human Service's (HHS's) declaration [...] consistent with SARS-CoV-2. Performed By: #### B SERVICE PROVIDER, CMP #### [facility] [address] [place] [address] Dr. Usama Hobbs PROF 14(COMP METB)on 022 Albumin [Mass/Vol] 3.3 g/dL Critically low 3.4-5.0 [facility] Comment on above: Performed By: #### P SAD #### [facility] [address] [place] [address] Dr. Usama Hobbs Albumin/Globulin [Mass ratio] 0.9 {ratio} Normal [facility] Comment on above: Performed By: #### P SAD #### [facility] [address] [place] [address] Dr. Usama Hobbs ALP [Catalytic activity/Vol] 78 U/L Normal 46-116 [facility] Comment on above: Performed By: #### P SAD #### [facility] [address] [place] [address] Dr. Usama Hobbs ALT [Catalytic activity/Vol] 33 U/L Normal 16-63 [facility] Comment on above: Performed By: #### P SAD #### [facility] [address] [place] [address] Dr. Usama Hobbs Anion gap [Moles/Vol] 9.8 mmol/L Normal [facility] Comment on above: Performed By: #### P SAD #### [facility] [address] [place] [address] Dr. Usama Hobbs AST [Catalytic activity/Vol] 25 U/L Normal 15-37 [facility] Comment on above: Performed By: #### P SAD #### [facility] [address] [place] [address] Dr. Usama Hobbs Bilirubin [Mass/Vol] 0.4 mg/dL Normal 0.2-1.0 [facility] Comment on above: Performed By: #### P SAD #### [facility] [address] [address] [address] Usama Hobbs Calcium [Mass/Vol] 8.1 mg/dL Critically low 8.5-10.1 [facility] Comment on above: Performed By: #### P SAD #### [facility] [address] [place] [address] Dr. Usama Hobbs Chloride [Moles/Vol] 102 mmol/L Normal 98-107 [facility] Comment on above: Performed By: #### P SAD #### [facility] [address] [place] [address] Dr. Usama Hobbs CO2 [Moles/Vol] 27.0 mmol/L Normal 21.0-32.0 [facility] Comment on above: Performed By: #### P SAD #### [facility] [address] [place] [address] Dr. Usama Hobbs Creatinine [Mass/Vol] 2.27 mg/dL Critically high 0.70-1.30 [facility] Comment on above: Performed By: #### P SAD #### [facility] [address] [place] [address] Dr. Usama Hobbs EGFR-AF ALGERIAN 35 mL/min/1.73m2 Critically low >=60 [facility] Comment on above: Performed By: #### P SAD #### [facility] [address] [place] [address] Dr. Usama Hobbs EGFR-NON AF ALGERIAN 29 mL/min/1.73m2 Critically low >=60 [facility] Comment on above: Performed By: #### P SAD #### [facility] [address] [place] [address] Dr. Usama Hobbs Globulin (S) [Mass/Vol] 3.5 g/dL Normal [facility] Comment on above: Performed By: #### P SAD #### [facility] [address] [place] [address] Dr. Usama Hobbs Glucose [Mass/Vol] 88 mg/dL Normal 74-106 [facility] Comment on above: Performed By: #### P SAD #### [facility] [address] [address] [address] Usama Hobbs Potassium [Moles/Vol] 3.8 mmol/L Normal 3.5-5.1 [facility] Comment on above: Performed By: #### P SAD #### [facility] [address] [address] [address] Usama Hobbs Protein [Mass/Vol] 6.8 g/dL Normal 6.1-8.2 [facility] Comment on above: Performed By: #### P SAD #### [facility] [address] [address] [address] Usama Hobbs Sodium [Moles/Vol] 135 mmol/L Critically low 136-145 Th [facility] Comment on above: Performed By: #### P SAD #### [facility] [address] [address] [address] Usama Hobbs Urea nitrogen [Mass/Vol] 26.0 mg/dL Critically high 7.0-18.0 [facility] Comment on above: Performed By: #### P SAD #### [facility] [address] [address] [address] Usama Hobbs Urea nitrogen/Creatinine [Mass ratio] 11.5 mg/mg Normal [facility] Comment on above: Performed By: #### P SAD #### [facility] [address] [address] [address] Usmaa Hobbs PROTIMEon 11-16-2021 INR Coag (PPP) [Relative time] 0.99 {INR} Normal [facility] Comment on above: Performed By: #### B SERVICE PROVIDER, CMP #### [facility] [address] [address] [address] Usama Hobbs INR GUIDELINES SEE BELOW Normal [facility] Comment on above: Result Comment: LUCY RED INR: 2.0 - 3.0 CONDITIONS NOT LISTED BELOW 2.5 - 3.5 FOR PROSTHETIC HEART VALVE REPLACEMENT 2.5 - 3.5 RECURRENT THROMBOSIS Performed By: #### B SERVICE PROVIDER, CMP #### [facility] [address] [place] [address] Dr. Usama Hobbs PT Coag (PPP) [Time] 10.7 s Normal 9.0-11.6 [facility] Comment on above: Performed By: #### B SERVICE PROVIDER, CMP #### [facility] [address] [place] [address] Dr. Usama Hobbs PTTon 11-16-2021 aPTT Coag (Bld) [Time] 28.2 s Normal 22.3-36.2 [facility] Comment on above: Performed By: #### B SERVICE PROVIDER, CMP #### [facility] [address] [place] [address] Dr. Usama Hobbs T4on 11-16-2021 T4 [Mass/Vol] 6.30 ug/dL Normal 4.50-12.10 [facility] Comment on above: Performed By: #### P SAD #### [facility] [address] [place] [address] Dr. Usama Hobbs TROPONIN, HIGH SENSITIVITYon 11-16-2021 HSTROP 24.0 pg/mL Normal 4.0-76.1 [facility] Comment on above: Result Comment: CUT- OFF POINTS HAVE BEEN ESTABLISHED BASED ON THE FOURTH UNIVERSAL DEFINITIONS OF MYOCARDIAL INFARCTION. THE UPPER REFERENCE LIMIT (URL) OF TROPONIN, DEFINED THE 99TH PERCENTILE OF cTnI DISTRIBUTION IN A REFERENCE POPULATION, HAS BEEN CONFIRMED THE DECISION THRESHOLD FOR MT DIAGNOSIS. Performed By: #### B SERVICE PROVIDER, CMP #### [facility] [address] [place] [address] Dr. Usama Hobbs TSHon 11-16-2021 TSH 2.466 uIU/mL Normal 0.470-4.680 [facility] Comment on above: Performed By: #### P SAD #### [facility] [address] [place] [address] Dr. Usama Hobbs TSH RANGE SEE BELOW Normal [facility] Comment on above: Result Comment: <0.3 4 UIU/ml HYPERTHYROID 0.34-5.60 UIU/ml EUTHYROID >5.60 UIU/ml HYPOTHYROID Performed By: #### P SAD #### [facility] [address] [address] [address] Usama Hobbs XR CHEST 1 Von [...] LEA ANTUNEZ Date: 2021-11-16 19:24 Normal [facility] CBC W Auto Differential pane l (Bld)on 11-05-2021 Abs Immature Gran <0.03 <0.10 k/uL [facility] Basophils (Bld) [#/Vol] 0.05 10*3/uL <0.11 k/uL [facility] Basophils/100 WBC (Bld) 1.0 % [facility] Differential cell count method Nom (Bld) Auto [facility] Eosinophils (Bld) [#/Vol] 0.39 10*3/uL <0.46 k/uL [facility] Eosinophils/100 WBC (Bld) 7.4 % [facility] Erythrocyte distribution width (RBC) [Ratio] 13.2 % 11.5 - 15.0 % [facility] Hematocrit (Bld) [Volume fraction] 39.1 % 39.0 - 51.0 % [facility] Hemoglobin (Bld) [Mass/Vol] 12.9 g/dL Low 13.0 - 17.0 g/dL [facility] Immature Gran % 0.2 % [facility] Lymphocytes (Bld) [#/Vol] 1.07 10*3/uL 1.00 - 4.00 k/uL [facility] Lymphocytes/100 WBC (Bld) 20.4 % [facility] MCH (RBC) [Entitic mass] 30.6 pg 26.0 - 34.0 pg [facility] MCHC (RBC) [Mass/Vol] 33.0 g/dL 30.5 - 36.0 g/dL [facility] MCV (RBC) [Entitic vol] 92.9 fL 80.0 - 100.0 fL [facility] Monocytes (Bld) [#/Vol] 0.57 10*3/uL <0.87 k/uL [facility] Monocytes/100 WBC (Bld) 10.9 % [facility] Neutrophils (Bld) [#/Vol] 3.15 10*3/uL 1.45 - 7.50 k/uL [facility] Neutrophils/100 WBC (Bld) 60.1 % [facility] Nucleated RBC (Bld) [#/Vol] 10*3/uL <0.01 k/uL [facility] Nucleated RBC/100 WBC (Bld) [Ratio] 0.0 /100 WBC [facility] Platelet mean volume (Bld) [Entitic vol] 9.9 fL 9.0 - 12.7 fL [facility] Platelets (Bld) [#/Vol] 305 10*3/uL 150 - 400 k/uL [facility] RBC (Bld) [#/Vol] 4.21 10*6/uL 4.20 - 6.00 m/uL [facility] WBC (Bld) [#/Vol] 5.24 10*3/uL 3.70 - 11.00 k/u L [facility] Comprehensive metabolic 2000 panelon 11-05-2021 Albumin [Mass/Vol] 4.3 g/dL 3.9 - 4.9 g/dL [facility] ALP [Catalytic activity/Vol] 73 U/L 38 - 113 U/L [facility] ALT [Catalytic activity/Vol] 16 U/L 10 - 54 U/L [facility] Anion gap [Moles/Vol] 12 mmol/L 9 - 18 mmol/L [facility] AST [Catalytic activity/Vol] 17 U/L 14 - 40 U/L [facility] Bilirubin [Mass/Vol] 0.5 mg/dL 0.2 - 1.3 mg/dL [facility] Calcium [Mass/Vol] 10.1 mg/dL 8.5 - 10.2 mg/dL [facility] Chloride [Moles/Vol] 105 mmol/L 97 - 105 mmol/L [facility] CO2 [Moles/Vol] 25 mmol/L 22 - 30 mmol/L [facility] Creatinine [Mass/Vol] 0.89 mg/dL 0.73 - 1.22 mg/dL [facility] Estimated Glomerular Filtration Rate 96 mL/min/1.73m >=60 mL/min/1.73m [facility] Glucose [Mass/Vol] 154 mg/dL High 74 - 99 mg/dL [facility] Potassium [Moles/Vol] 4.2 mmol/L 3.7 - 5.1 mmol/L [facility] Protein [Mass/Vol] 7.1 g/dL 6.3 - 8.0 g/dL [facility] Sodium [Moles/Vol] 142 mmol/L 136 - 144 mmol/L [facility] Urea nitrogen [Mass/Vol] 9 mg/dL 9 - 24 mg/dL [facility] MRI BRAIN WO/W IVCONon 10-31 [facility] XR CHEST 2V FRONTAL/LATon [facility] NM PET/CT WHOLE BODY INITIAL on 05-28-2021 [facility] Cardiovascular Lab Reporton 02-24-2019 Cardiovascular Lab Report [facility] Patient Name: Riccardo , [facility] Cristal Maloney MR #: [id number] Department of Physician: [facility] Alma Chaney M.D. Division of Service Date: 02/23/2019 Cardiology Birthdate: 1955 Adult Cardiovascular Room #: [id number] [address] Cardiovascular Laboratory Report INDICATION: The patient is [...] informed consent. He was brought to lab assistant in a fasting state. The right groin area was prepped and draped in usual fashion. Using micropuncture technique, the right common femoral artery was accessed. The inner cannula was advanced and limited right femoral angiography was performed followed by upsizing to a 6-Armenian x 5 cm sheath. Right lower extremity angiography was performed down to the level of the foot. An angled Glidewire was advanced into the abdominal aorta and a 5-Armenian Uni-Flush catheter was advanced. Aortoiliac angiography was performed using digital subtraction angiography and power injection of contrast. Using the angled Glidewire, the aortoiliac bifurcation was crossed and the catheter was exchanged to a 5-Armenian straight tapered diagnostic catheter, which was used [...] The access sheath was exchanged to a 6-Armenian x 11 cm sheath. The patient was [...] Chaney M.D. Date Trans: 02/24/2019 05:47 A/boris [id number] cc: Christina Azul M.D. [address] [place] [id number] [facility] Vital Signs Date Time Vital Sign Value Performing Clinician Facility 03-20-2024 15:21-0400 Body temperature 97.8 [degF] [facility] 03-20-2024 15:21-0400 Diastolic blood pressure 82 mm[Hg] [facility] 03-20-2024 15:21-0400 Heart rate 68 /min [facility] 03-20-2024 15:21-0400 Respiratory rate 16 /min [facility] 03-20-2024 15:21-0400 SaO2% (BldA) [Mass fraction] 98 % [facility] 03-20-2024 15:21-0400 Systolic blood pressure 171 mm[Hg] [facility] 03-20-2024 06:00-0400 Body weight 50.2 kg [facility] 03-20-2024 00:00-0400 Inhaled oxygen flow rate 2 L/min [facility] 03-19-2024 11:15-0400 Heart rate 80 /min [facility] 03-19-2024 11:00-0400 Diastolic blood pressure 84 mm[Hg] [facility] 03-19-2024 11:00-0400 Respiratory rate 16 /min [facility] 03-19-2024 11:00-0400 SaO2% (BldA) [Mass fraction] 95 % [facility] 03-19-2024 11:00-0400 Systolic blood pressure 178 mm[Hg] [facility] 03-19-2024 09:14-0400 Body height 170.18 cm [facility] 03-19-2024 09:14-0400 Body temperature 97.9 [degF] [facility] 03-19-2024 09:14-0400 Body weight 52.25 kg [facility] 03-18-2024 18:52-0400 Diastolic blood pressure 90 mm[Hg] [facility] 03-18-2024 18:52-0400 Systolic blood pressure 190 mm[Hg] [facility] 03-18-2024 18:45-0400 Body height 170.18 cm [facility] 03-18-2024 18:45-0400 Body temperature 98.4 [degF] [facility] 03-18-2024 18:45-0400 Body weight 52.8 kg [facility] 03-18-2024 18:45-0400 Heart rate 67 /min [facility] 03-18-2024 18:45-0400 Respiratory rate 21 /min [facility] 03-18-2024 18:45-0400 SaO2% (BldA) [Mass fraction] 100 % [facility] 03-18-2024 13:27-0400 SaO2% (BldA) [Mass fraction] 84 % Nina Grigsby MD Work Phone: [facility] 03-18-2024 13:21-0400 Body height 168.3 cm Nina Grigsby MD Work Phone: [facility] 03-18-2024 13:21-0400 Body mass index (BMI) [Ratio] 18.15 kg/m2 Nina Grigsby MD Work Phone: [facility] 03-18-2024 13:21-0400 Body temperature 97.5 [degF] Nina Grigsby MD Work Phone: [facility] 03-18-2024 13:21-0400 Body weight 51.4 kg Nina Grigsby MD Work Phone: [facility] 03-18-2024 13:21-0400 Diastolic blood pressure 78 mm[Hg] Nina Grigsby MD Work Phone: [facility] 03-18-2024 13:21-0400 Heart rate 86 /min Nina Grigsby MD Work Phone: [facility] 03-18-2024 13:21-0400 Respiratory rate 16 /min Nina Grigsby MD Work Phone: [facility] 03-18-2024 13:21-0400 Systolic blood pressure 159 mm[Hg] Nina Grigsby MD Work Phone: [facility] 03-15-2024 13:06-0400 Body mass index (BMI) [Ratio] 17.62 kg/m2 Merary Lucas MD Work Phone: [facility] 03-15-2024 13:06-0400 Body weight 49.9 kg Merary Lucas MD Work Phone: [facility] 03-15-2024 13:06-0400 Diastolic blood pressure 62 mm[Hg] Merary Lucas MD Work Phone: [facility] 03-15-2024 13:06-0400 Heart rate 65 /min Merary Lucas MD Work Phone: [facility] 03-15-2024 13:06-0400 SaO2% (BldA) [Mass fraction] 100 % Merary Lucas MD Work Phone: [facility] Comment on above: 03-15-2024 13:06-0400 Systolic blood pressure 127 mm[Hg] Merary Lucas MD Work Phone: [facility] 02-07-2024 19:28-0400 Diastolic blood pressure 75 mm[Hg] [facility] 02-07-2024 19:28-0400 Heart rate 76 /min [facility] 02-07-2024 19:28-0400 Respiratory rate 18 /min [facility] 02-07-2024 19:28-0400 SaO2% (BldA) [Mass fraction] 97 % [facility] 02-07-2024 19:28-0400 Systolic blood pressure 159 mm[Hg] [facility] 02-07-2024 15:51-0400 Body height 170.18 cm [facility] 02-07-2024 15:51-0400 Body temperature 98 [degF] [facility] 02-07-2024 15:51-0400 Body weight 52.3 kg [facility] 02-03-2024 11:32-0400 Body height 168.3 cm Yusef Jessica PA-C Work Phone: [facility] 02-03-2024 11:32-0400 Body mass index (BMI) [Ratio] 18.43 kg/m2 Yusef Jessica PA-C Work Phone: [facility] 02-03-2024 11:32-0400 Body temperature 97.3 [degF] Yusef Jessica PA-C Work Phone: [facility] 02-03-2024 11:32-0400 Body weight 52.2 kg Yusef Jessica PA-C Work Phone: [facility] 02-03-2024 11:32-0400 Diastolic blood pressure 74 mm[Hg] Yusef Jessica PA-C Work Phone: [facility] 02-03-2024 11:32-0400 Heart rate 92 /min Yusef Jessica PA-C Work Phone: [facility] 02-03-2024 11:32-0400 Respiratory rate 18 /min Yusef Jessica PA-C Work Phone: [facility] 02-03-2024 11:32-0400 SaO2% (BldA) [Mass fraction] 99 % Yusef Pandya PA-C Work Phone: [facility] 02-03-2024 11:32-0400 Systolic blood pressure 122 mm[Hg] Yusef Pandya PA-C Work Phone: [facility] 12-23-2023 14:53-0400 Body height 168.3 cm Nina Grigsby MD Work Phone: [facility] 12-23-2023 14:53-0400 Body mass index (BMI) [Ratio] 19.49 kg/m2 Nina Grigsby MD Work Phone: [facility] 12-23-2023 14:53-0400 Body temperature 97.39 [degF] Nina Grigsby MD Work Phone: [facility] 12-23-2023 14:53-0400 Body weight 55.2 kg Nina Grigsby MD Work Phone: [facility] 12-23-2023 14:53-0400 Diastolic blood pressure 74 mm[Hg] Nina Grigsby MD Work Phone: [facility] 12-23-2023 14:53-0400 Heart rate 71 /min Nina Grigsby MD Work Phone: [facility] 12-23-2023 14:53-0400 Respiratory rate 16 /min Nina Grigsby MD Work Phone: [facility] 12-23-2023 14:53-0400 SaO2% (BldA) [Mass fraction] 99 % Nina Grigsby MD Work Phone: [facility] 12-23-2023 14:53-0400 Systolic blood pressure 137 mm[Hg] Nina Grigsby MD Work Phone: [facility] 12-22-2023 12:38-0400 Body mass index (BMI) [Ratio] 18.29 kg/m2 JC Limon MD Work Phone: [facility] 12-22-2023 12:38-0400 Body temperature 97.59 [degF] JC Limon MD Work Phone: [facility] 12-22-2023 12:38-0400 Body weight 51.8 kg JC Limon MD Work Phone: [facility] 12-22-2023 12:38-0400 Diastolic blood pressure 83 mm[Hg] JC Limon MD Work Phone: [facility] 12-22-2023 12:38-0400 Heart rate 116 /min JC Limon MD Work Phone: [facility] 12-22-2023 12:38-0400 Respiratory rate 18 /min JC Limon MD Work Phone: [facility] 12-22-2023 12:38-0400 SaO2% (BldA) [Mass fraction] 99 % JC Limon MD Work Phone: [facility] 12-22-2023 12:38-0400 Systolic blood pressure 124 mm[Hg] JC Limon MD Work Phone: [facility] 12-16-2023 15:45-0400 Body mass index (BMI) [Ratio] 19.14 kg/m2 JC Limon MD Work Phone: [facility] 12-16-2023 15:45-0400 Body temperature 97.3 [degF] JC Limon MD Work Phone: [facility] 12-16-2023 15:45-0400 Body weight 54.2 kg JC Limon MD Work Phone: [facility] 12-16-2023 15:45-0400 Diastolic blood pressure 86 mm[Hg] JC Limon MD Work Phone: [facility] 12-16-2023 15:45-0400 Heart rate 66 /min JC Limon MD Work Phone: [facility] 12-16-2023 15:45-0400 Respiratory rate 16 /min JC Limon MD Work Phone: [facility] 12-16-2023 15:45-0400 SaO2% (BldA) [Mass fraction] 100 % JC Limon MD Work Phone: [facility] 12-16-2023 15:45-0400 Systolic blood pressure 161 mm[Hg] JC Limon MD Work Phone: [facility] 12-10-2023 14:40-0400 Body mass index (BMI) [Ratio] 19.21 kg/m2 NA Fay KHOURY Work Phone: [facility] 12-10-2023 14:40-0400 Body temperature 96.69 [degF] JC Limon MD Work Phone: [facility] 12-10-2023 14:40-0400 Body weight 54.4 kg JC Limon MD Work Phone: [facility] 12-10-2023 14:40-0400 Diastolic blood pressure 68 mm[Hg] JC Limon MD Work Phone: [facility] 12-10-2023 14:40-0400 Heart rate 68 /min JC Limon MD Work Phone: [facility] 12-10-2023 14:40-0400 Respiratory rate 16 /min JC Limon MD Work Phone: [facility] 12-10-2023 14:40-0400 SaO2% (BldA) [Mass fraction] 97 % JC Limon MD Work Phone: [facility] 12-10-2023 14:40-0400 Systolic blood pressure 125 mm[Hg] JC Limon MD Work Phone: [facility] 12-02-2023 10:20-0400 Body height 168.3 cm Nina Grigsby MD Work Phone: [facility] 12-02-2023 10:20-0400 Body mass index (BMI) [Ratio] 18.71 kg/m2 Nina Grigsby MD Work Phone: [facility] 12-02-2023 10:20-0400 Body temperature 96.69 [degF] Nina Grigsby MD Work Phone: [facility] 12-02-2023 10:20-0400 Body weight 53 kg Nina Grigsby MD Work Phone: [facility] 12-02-2023 10:20-0400 Diastolic blood pressure 83 mm[Hg] Nina Grigsby MD Work Phone: [facility] 12-02-2023 10:20-0400 Heart rate 55 /min Nina Grigsby MD Work Phone: [facility] 12-02-2023 10:20-0400 Respiratory rate 16 /min Nina Grigsby MD Work Phone: [facility] 12-02-2023 10:20-0400 SaO2% (BldA) [Mass fraction] 93 % Nina Grigsby MD Work Phone: [facility] 12-02-2023 10:20-0400 Systolic blood pressure 133 mm[Hg] Nina Grigsby MD Work Phone: [facility] 11-21-2023 10:05-0400 Body height 168.3 cm Estella Bundridge CONCERT MANAGER.TYPEWRITER TESTER Work Phone: [facility] 11-21-2023 10:05-0400 Body mass index (BMI) [Ratio] 19.74 kg/m2 Estella Bundridge CONCERT MANAGER.TYPEWRITER TESTER Work Phone: [facility] 11-21-2023 10:05-0400 Body temperature 97.7 [degF] Estella Bundridge CONCERT MANAGER.TYPEWRITER TESTER Work Phone: [facility] 11-21-2023 10:05-0400 Body weight 55.9 kg Estella Bundridge CONCERT MANAGER.TYPEWRITER TESTER Work Phone: [facility] 11-21-2023 10:05-0400 Diastolic blood pressure 91 mm[Hg] Estella Bundridge CONCERT MANAGER.TYPEWRITER TESTER Work Phone: [facility] 11-21-2023 10:05-0400 Heart rate 95 /min Estella Bundridge CONCERT MANAGER.TYPEWRITER TESTER Work Phone: [facility] 11-21-2023 10:05-0400 Respiratory rate 16 /min Estella Bundridge CONCERT MANAGER.TYPEWRITER TESTER Work Phone: [facility] 11-21-2023 10:05-0400 SaO2% (BldA) [Mass fraction] 98 % Estella Bundridge CONCERT MANAGER.TYPEWRITER TESTER Work Phone: [facility] 11-21-2023 10:05-0400 Systolic blood pressure 154 mm[Hg] Estella Bundridge CONCERT MANAGER.TYPEWRITER TESTER Work Phone: [facility] 11-04-2023 09:43-0400 Body height 168.3 cm Nina Grigsby MD Work Phone: [facility] 11-04-2023 09:43-0400 Body temperature 97 [degF] Nina Grigsby MD Work Phone: [facility] 11-04-2023 09:43-0400 Body weight 56.3 kg Nina Grigsby MD Work Phone: [facility] 11-04-2023 09:43-0400 Diastolic blood pressure 84 mm[Hg] Nina Grigsby MD Work Phone: [facility] 11-04-2023 09:43-0400 Heart rate 101 /min Nina Grigsby MD Work Phone: [facility] 11-04-2023 09:43-0400 Respiratory rate 16 /min Nina Grigsby MD Work Phone: [facility] 11-04-2023 09:43-0400 SaO2% (BldA) [Mass fraction] 96 % Nina Grigsby MD Work Phone: [facility] 11-04-2023 09:43-0400 Systolic blood pressure 147 mm[Hg] Nina Grigsby MD Work Phone: [facility] 10-20-2023 10:06-0400 Body height 168.3 cm Nina Grigsby MD Work Phone: [facility] 10-20-2023 10:06-0400 Body temperature 97.3 [degF] Nina Grigsby MD Work Phone: [facility] 10-20-2023 10:06-0400 Body weight 57.5 kg Nina Grigsby MD Work Phone: [facility] 10-20-2023 10:06-0400 Diastolic blood pressure 72 mm[Hg] Nina Grigsby MD Work Phone: [facility] 10-20-2023 10:06-0400 Heart rate 82 /min Nina Grigsby MD Work Phone: [facility] 10-20-2023 10:06-0400 Respiratory rate 18 /min Nina Grigsby MD Work Phone: [facility] 10-20-2023 10:06-0400 SaO2% (BldA) [Mass fraction] 98 % Nina Grigsby MD Work Phone: [facility] 10-20-2023 10:06-0400 Systolic blood pressure 155 mm[Hg] Nina Grigsby MD Work Phone: [facility] 09-22-2023 09:56-0500 Body height 168.3 cm Nina Grigsby MD Work Phone: [facility] 09-22-2023 09:56-0500 Body temperature 97.11 [degF] Nina Grigsby MD Work Phone: [facility] 09-22-2023 09:56-0500 Body weight 60.2 kg Nina Grigsby MD Work Phone: [facility] 09-22-2023 09:56-0500 Diastolic blood pressure 78 mm[Hg] Nina Grigsby MD Work Phone: [facility] 09-22-2023 09:56-0500 Heart rate 91 /min Nina Grigsby MD Work Phone: [facility] 09-22-2023 09:56-0500 Respiratory rate 18 /min Nina Grigsby MD Work Phone: [facility] 09-22-2023 09:56-0500 SaO2% (BldA) [Mass fraction] 99 % Nina Grigsby MD Work Phone: [facility] 09-22-2023 09:56-0500 Systolic blood pressure 142 mm[Hg] Nina Grigsby MD Work Phone: [facility] 08-25-2023 14:55-0500 Body height 168.3 cm Nina Grigsby MD Work Phone: [facility] 08-25-2023 14:55-0500 Body temperature 97.59 [degF] Nina Grigsby MD Work Phone: [facility] 08-25-2023 14:55-0500 Body weight 61.2 kg Nina Grigsby MD Work Phone: [facility] 08-25-2023 14:55-0500 Diastolic blood pressure 70 mm[Hg] Nina Grigsby MD Work Phone: [facility] 08-25-2023 14:55-0500 Heart rate 67 /min Nina Grigsby MD Work Phone: [facility] 08-25-2023 14:55-0500 Respiratory rate 18 /min Nina Grigsby MD Work Phone: [facility] 08-25-2023 14:55-0500 Systolic blood pressure 136 mm[Hg] Nina Grigsby MD Work Phone: [facility] 06-30-2023 15:09-0500 Body height 168.3 cm Nina Grigsby MD Work Phone: [facility] 06-30-2023 15:09-0500 Body temperature 97.11 [degF] Nina Grigsby MD Work Phone: [facility] 06-30-2023 15:09-0500 Body weight 63.05 kg Nina Grigsby MD Work Phone: [facility] 06-30-2023 15:09-0500 Diastolic blood pressure 66 mm[Hg] Nina Grigsby MD Work Phone: [facility] 06-30-2023 15:09-0500 Heart rate 84 /min Nina Grigsby MD Work Phone: [facility] 06-30-2023 15:09-0500 Respiratory rate 16 /min Nina Grigsby MD Work Phone: [facility] 06-30-2023 15:09-0500 Systolic blood pressure 119 mm[Hg] Nina Grigsby MD Work Phone: [facility] 06-13-2023 09:34-0500 Body temperature 97 [degF] Estella Bundridge CONCERT MANAGER.TYPEWRITER TESTER Work Phone: [facility] 06-13-2023 09:34-0500 Body weight 63.41 kg Estella Bundridge CONCERT MANAGER.TYPEWRITER TESTER Work Phone: [facility] 06-13-2023 09:34-0500 Diastolic blood pressure 78 mm[Hg] Estella Bundridge CONCERT MANAGER.TYPEWRITER TESTER Work Phone: [facility] 06-13-2023 09:34-0500 Heart rate 84 /min Estella Bundridge CONCERT MANAGER.TYPEWRITER TESTER Work Phone: [facility] 06-13-2023 09:34-0500 Respiratory rate 18 /min Estella Bundridge CONCERT MANAGER.TYPEWRITER TESTER Work Phone: [facility] 06-13-2023 09:34-0500 SaO2% (BldA) [Mass fraction] 98 % Estella Bundridge CONCERT MANAGER.TYPEWRITER TESTER Work Phone: [facility] 06-13-2023 09:34-0500 Systolic blood pressure 139 mm[Hg] Estella Bundridge CONCERT MANAGER.TYPEWRITER TESTER Work Phone: [facility] 06-02-2023 14:34-0500 Body height 168.3 cm Patricia Miller CONCERT MANAGER.TYPEWRITER TESTER Work Phone: [facility] 06-02-2023 14:34-0500 Body temperature 97.59 [degF] Patricia Miller CONCERT MANAGER.TYPEWRITER TESTER Work Phone: [facility] 06-02-2023 14:34-0500 Body weight 63.78 kg Patricia Miller CONCERT MANAGER.TYPEWRITER TESTER Work Phone: [facility] 06-02-2023 14:34-0500 Diastolic blood pressure 101 mm[Hg] Patricia Miller CONCERT MANAGER.TYPEWRITER TESTER Work Phone: [facility] 06-02-2023 14:34-0500 Heart rate 98 /min Patricia Miller CONCERT MANAGER.TYPEWRITER TESTER Work Phone: [facility] 06-02-2023 14:34-0500 Respiratory rate 16 /min Patricia Miller CONCERT MANAGER.TYPEWRITER TESTER Work Phone: [facility] 06-02-2023 14:34-0500 SaO2% (BldA) [Mass fraction] 97 % Patricia Miller CONCERT MANAGER.TYPEWRITER TESTER Work Phone: [facility] 06-02-2023 14:34-0500 Systolic blood pressure 160 mm[Hg] Patricia Miller CONCERT MANAGER.TYPEWRITER TESTER Work Phone: [facility] 05-30-2023 11:11-0500 Body temperature 97.3 [degF] JC Limon MD Work Phone: [facility] 05-30-2023 11:11-0500 Body weight 64.32 kg JC Limon MD Work Phone: [facility] 05-30-2023 11:11-0500 Diastolic blood pressure 114 mm[Hg] JC Limon MD Work Phone: [facility] 05-30-2023 11:11-0500 Heart rate 70 /min JC Limon MD Work Phone: [facility] 05-30-2023 11:11-0500 Respiratory rate 16 /min JC Limon MD Work Phone: [facility] 05-30-2023 11:11-0500 SaO2% (BldA) [Mass fraction] 100 % JC Limon MD Work Phone: [facility] 05-30-2023 11:11-0500 Systolic blood pressure 172 mm[Hg] JC Limon MD Work Phone: [facility] 05-16-2023 08:51-0400 Body height 168.3 cm Estella Bundridge CONCERT MANAGER.TYPEWRITER TESTER Work Phone: [facility] 05-16-2023 08:51-0400 Body temperature 97 [degF] Estella Bundridge CONCERT MANAGER.TYPEWRITER TESTER Work Phone: [facility] 05-16-2023 08:51-0400 Body weight 63.14 kg Estella Bundridge CONCERT MANAGER.TYPEWRITER TESTER Work Phone: [facility] 05-16-2023 08:51-0400 Diastolic blood pressure 85 mm[Hg] Estella Bundridge CONCERT MANAGER.TYPEWRITER TESTER Work Phone: [facility] 05-16-2023 08:51-0400 Heart rate 85 /min Estella Bundridge CONCERT MANAGER.TYPEWRITER TESTER Work Phone: [facility] 05-16-2023 08:51-0400 Respiratory rate 16 /min Estella Bundridge CONCERT MANAGER.TYPEWRITER TESTER Work Phone: [facility] 05-16-2023 08:51-0400 SaO2% (BldA) [Mass fraction] 98 % Estella Bundridge CONCERT MANAGER.TYPEWRITER TESTER Work Phone: [facility] 05-16-2023 08:51-0400 Systolic blood pressure 150 mm[Hg] Estella Bundridge CONCERT MANAGER.TYPEWRITER TESTER Work Phone: [facility] 04-01-2023 12:53-0400 Diastolic blood pressure 101 mm[Hg] Patricia Miller CONCERT MANAGER.TYPEWRITER TESTER Work Phone: [facility] 04-01-2023 12:53-0400 Heart rate 105 /min Patricia Miller CONCERT MANAGER.TYPEWRITER TESTER Work Phone: [facility] 04-01-2023 12:53-0400 Systolic blood pressure 191 mm[Hg] Patricia Miller CONCERT MANAGER.TYPEWRITER TESTER Work Phone: [facility] 04-01-2023 12:50-0400 Body height 168.3 cm Patricia Miller CONCERT MANAGER.TYPEWRITER TESTER Work Phone: [facility] 04-01-2023 12:50-0400 Body temperature 97.81 [degF] Patricia Miller CONCERT MANAGER.TYPEWRITER TESTER Work Phone: [facility] 04-01-2023 12:50-0400 Body weight 62.96 kg Patricia Miller CONCERT MANAGER.TYPEWRITER TESTER Work Phone: [facility] 04-01-2023 12:50-0400 Respiratory rate 18 /min Patricia Miller CONCERT MANAGER.TYPEWRITER TESTER Work Phone: [facility] 04-01-2023 12:50-0400 SaO2% (BldA) [Mass fraction] 98 % Patricia Miller CONCERT MANAGER.TYPEWRITER TESTER Work Phone: [facility] 03-11-2023 13:40-0400 Body height 168.3 cm Nina Grigsby MD Work Phone: [facility] 03-11-2023 13:40-0400 Body temperature 97.59 [degF] Nina Grigsby MD Work Phone: [facility] 03-11-2023 13:40-0400 Body weight 62.14 kg Nina Grigsby MD Work Phone: [facility] 03-11-2023 13:40-0400 Diastolic blood pressure 74 mm[Hg] Nina Grigsby MD Work Phone: [facility] 03-11-2023 13:40-0400 Heart rate 75 /min Nina Grigsby MD Work Phone: [facility] 03-11-2023 13:40-0400 Respiratory rate 16 /min Nina Grigsby MD Work Phone: [facility] 03-11-2023 13:40-0400 SaO2% (BldA) [Mass fraction] 99 % Nina Grigsby MD Work Phone: [facility] 03-11-2023 13:40-0400 Systolic blood pressure 158 mm[Hg] Nina Grigsby MD Work Phone: [facility] 02-18-2023 16:06-0400 Diastolic blood pressure 97 mm[Hg] Chair Jose Work Phone: [facility] 02-18-2023 16:06-0400 Systolic blood pressure 183 mm[Hg] Chair Jose Work Phone: [facility] 02-18-2023 14:38-0400 Body height 168.3 cm Nina Grigsby MD Work Phone: [facility] 02-18-2023 14:38-0400 Body temperature 97.9 [degF] Nina Grigsby MD Work Phone: [facility] 02-18-2023 14:38-0400 Body weight 60.24 kg Nina Grigsby MD Work Phone: [facility] 02-18-2023 14:38-0400 Diastolic blood pressure 103 mm[Hg] Nina Grigsby MD Work Phone: [facility] 02-18-2023 14:38-0400 Heart rate 134 /min Nina Grigsby MD Work Phone: [facility] 02-18-2023 14:38-0400 Respiratory rate 16 /min Nina Grigbsy MD Work Phone: [facility] 02-18-2023 14:38-0400 SaO2% (BldA) [Mass fraction] 98 % Nina Grigsby MD Work Phone: [facility] 02-18-2023 14:38-0400 Systolic blood pressure 161 mm[Hg] Nina Grigsby MD Work Phone: [facility] 01-03-2023 21:46-0400 Diastolic blood pressure 101 mm[Hg] MD Christina Azul Work Phone: [facility] 01-03-2023 21:46-0400 Heart rate 71 /min MD Christina Azul Work Phone: [facility] 01-03-2023 21:46-0400 Respiratory rate 18 /min MD Christina Azul Work Phone: [facility] 01-03-2023 21:46-0400 SaO2% (BldA) [Mass fraction] 98 % MD Christina Azul Work Phone: [facility] 01-03-2023 21:46-0400 Systolic blood pressure 173 mm[Hg] MD Christina Azul Work Phone: [facility] 01-03-2023 17:10-0400 Body height 170.18 cm MD Christina Azul Work Phone: [facility] 01-03-2023 17:10-0400 Body temperature 98.6 [degF] MD Christina Azul Work Phone: [facility] 01-03-2023 17:10-0400 Body weight 58.75 kg MD Christina Azul Work Phone: [facility] 12-17-2022 08:47-0400 Body height 168.3 cm Nina Grigsby MD Work Phone: [facility] 12-17-2022 08:47-0400 Body temperature 98.6 [degF] Nina Grigsby MD Work Phone: [facility] 12-17-2022 08:47-0400 Body weight 59.42 kg Nina Grigsby MD Work Phone: [facility] 12-17-2022 08:47-0400 Diastolic blood pressure 70 mm[Hg] Nina Grigsby MD Work Phone: [facility] 12-17-2022 08:47-0400 Heart rate 106 /min Nina Grigsby MD Work Phone: [facility] 12-17-2022 08:47-0400 Respiratory rate 16 /min Nina Grigsby MD Work Phone: [facility] 12-17-2022 08:47-0400 SaO2% (BldA) [Mass fraction] 96 % Nina Grigsby MD Work Phone: [facility] 12-17-2022 08:47-0400 Systolic blood pressure 122 mm[Hg] Nina Grigsby MD Work Phone: [facility] 11-25-2022 09:28-0400 Body height 168.3 cm Patricia Miller APRN.TYPEWRITER TESTER Work Phone: [facility] 11-25-2022 09:28-0400 Body temperature 97.5 [degF] Patricia Miller APRN.TYPEWRITER TESTER Work Phone: [facility] 11-25-2022 09:28-0400 Body weight 59.15 kg Patricia Miller APRN.TYPEWRITER TESTER Work Phone: [facility] 11-25-2022 09:28-0400 Diastolic blood pressure 69 mm[Hg] Patricia Miller APRN.TYPEWRITER TESTER Work Phone: [facility] 11-25-2022 09:28-0400 Heart rate 97 /min Patricia Miller APRN.TYPEWRITER TESTER Work Phone: [facility] 11-25-2022 09:28-0400 Respiratory rate 16 /min Patricia Miller APRN.TYPEWRITER TESTER Work Phone: [facility] 11-25-2022 09:28-0400 SaO2% (BldA) [Mass fraction] 99 % Patricia Miller APRN.TYPEWRITER TESTER Work Phone: [facility] 11-25-2022 09:28-0400 Systolic blood pressure 108 mm[Hg] Patricia Miller APRN.TYPEWRITER TESTER Work Phone: [facility] 11-20-2022 10:33-0400 Body temperature 97.7 [degF] JC Limon MD Work Phone: [facility] 11-20-2022 10:33-0400 Body weight 59.24 kg JC Limon MD Work Phone: [facility] 11-20-2022 10:33-0400 Diastolic blood pressure 73 mm[Hg] JC Limon MD Work Phone: [facility] 11-20-2022 10:33-0400 Heart rate 87 /min JC Limon MD Work Phone: [facility] 11-20-2022 10:33-0400 Respiratory rate 18 /min JC Limon MD Work Phone: [facility] 11-20-2022 10:33-0400 SaO2% (BldA) [Mass fraction] 97 % JC Limon MD Work Phone: [facility] 11-20-2022 10:33-0400 Systolic blood pressure 137 mm[Hg] JC Limon MD Work Phone: [facility] 11-18-2022 13:30-0400 Body height 168.3 cm Nina Grigsby MD Work Phone: [facility] 11-18-2022 13:30-0400 Body temperature 97.2 [degF] Nina Grigsby MD Work Phone: [facility] 11-18-2022 13:30-0400 Body weight 60.33 kg Nina Grigsby MD Work Phone: [facility] 11-18-2022 13:30-0400 Diastolic blood pressure 70 mm[Hg] Nina Grigsby MD Work Phone: [facility] 11-18-2022 13:30-0400 Heart rate 84 /min Nina Grigsby MD Work Phone: [facility] 11-18-2022 13:30-0400 Respiratory rate 16 /min Nina Grigsby MD Work Phone: [facility] 11-18-2022 13:30-0400 SaO2% (BldA) [Mass fraction] 100 % Nina Grigsby MD Work Phone: [facility] 11-18-2022 13:30-0400 Systolic blood pressure 124 mm[Hg] Nina Grigsby MD Work Phone: [facility] 11-11-2022 13:19-0400 Body height 168.3 cm Nina Grigsby MD Work Phone: [facility] 04-24-2023 13:19-0400 Body temperature 96.6 [degF] Nina Grigsby MD Work Phone: [facility] 11-11-2022 13:19-0400 Body weight 61.2 kg Nina Grigsby MD Work Phone: [facility] 11-11-2022 13:19-0400 Diastolic blood pressure 84 mm[Hg] Nina Grigsby MD Work Phone: [facility] 11-11-2022 13:19-0400 Heart rate 72 /min Nina Grigsby MD Work Phone: [facility] 11-11-2022 13:19-0400 Respiratory rate 18 /min Nina Grigsby MD Work Phone: [facility] 11-11-2022 13:19-0400 SaO2% (BldA) [Mass fraction] 96 % Nina Grigsby MD Work Phone: [facility] 11-11-2022 13:19-0400 Systolic blood pressure 162 mm[Hg] Nina Grigsby MD Work Phone: [facility] 11-04-2022 11:19-0400 Body temperature 97.7 [degF] JC Limon MD Work Phone: [facility] 11-04-2022 11:19-0400 Body weight 60.06 kg JC Limon MD Work Phone: [facility] 11-04-2022 11:19-0400 Diastolic blood pressure 84 mm[Hg] JC Limon MD Work Phone: [facility] 11-04-2022 11:19-0400 Heart rate 87 /min JC Limon MD Work Phone: [facility] 11-04-2022 11:19-0400 Respiratory rate 16 /min JC Limon MD Work Phone: [facility] 11-04-2022 11:19-0400 SaO2% (BldA) [Mass fraction] 95 % JC Limon MD Work Phone: [facility] 11-04-2022 11:19-0400 Systolic blood pressure 159 mm[Hg] JC Limon MD Work Phone: [facility] 10-31-2022 14:57-0400 Body height 168.3 cm Nina Grigsby MD Work Phone: [facility] 10-31-2022 14:57-0400 Body temperature 97.2 [degF] Nina Grigsby MD Work Phone: [facility] 10-31-2022 14:57-0400 Body weight 59.97 kg Nina Grigsby MD Work Phone: [facility] 10-31-2022 14:57-0400 Diastolic blood pressure 65 mm[Hg] Nina Grigsby MD Work Phone: [facility] 10-31-2022 14:57-0400 Heart rate 90 /min Nina Grigsby MD Work Phone: [facility] 10-31-2022 14:57-0400 Respiratory rate 16 /min Nina Grigsby MD Work Phone: [facility] 10-31-2022 14:57-0400 SaO2% (BldA) [Mass fraction] 100 % Nina Grigsby MD Work Phone: [facility] 10-31-2022 14:57-0400 Systolic blood pressure 114 mm[Hg] Nina Grigsby MD Work Phone: [facility] 10-21-2022 14:08-0400 Body height 168.3 cm Chair Mendez Work Phone: [facility] 10-21-2022 13:42-0400 Body height 169.5 cm JC Limon MD Work Phone: [facility] 10-21-2022 13:35-0400 Body height 169.7 cm Nina Grigsby MD Work Phone: [facility] 10-21-2022 13:35-0400 Body temperature 97.9 [degF] Nina Grigsby MD [facility] [facility]22 13:35-0400 Body weight 61.24 kg Nina Grigsby MD Work Phone: [facility] 10-21-2022 13:35-0400 Diastolic blood pressure 79 mm[Hg] Nina Grigsby MD Work Phone: [facility] 10-21-2022 13:35-0400 Heart rate 92 /min Nina Grigsby MD Work Phone: [facility] 10-21-2022 13:35-0400 Respiratory rate 16 /min Nina Grigsby MD Work Phone: [facility] 10-21-2022 13:35-0400 SaO2% (BldA) [Mass fraction] 97 % Nina Grigsby MD Work Phone: [facility] 10-21-2022 13:35-0400 Systolic blood pressure 129 mm[Hg] Nina Grigsby MD Work Phone: [facility] 10-15-2022 09:06-0400 Body height 167.6 cm Nina Grigsby MD Work Phone: [facility] 10-15-2022 09:06-0400 Body temperature 97 [degF] Nina Grigsby MD Work Phone: [facility] 10-15-2022 09:06-0400 Body weight 60.6 kg Nina Grigsby MD Work Phone: [facility] 10-15-2022 09:06-0400 Diastolic blood pressure 89 mm[Hg] Nina Grigsby MD Work Phone: [facility] 10-15-2022 09:06-0400 Heart rate 68 /min Nina Grigsby MD Work Phone: [facility] 10-15-2022 09:06-0400 Respiratory rate 16 /min Nina Grigsby MD Work Phone: [facility] 10-15-2022 09:06-0400 SaO2% (BldA) [Mass fraction] 94 % Nina Grigsby MD Work Phone: [facility] 10-15-2022 09:06-0400 Systolic blood pressure 158 mm[Hg] Nina Grigsby MD Work Phone: [facility] 09-23-2022 10:19-0500 Body height 167.6 cm Nina Grigsby MD Work Phone: [facility] 09-23-2022 10:19-0500 Body temperature 97.59 [degF] Nina Grigsby MD Work Phone: [facility] 09-23-2022 10:19-0500 Body weight 60.69 kg Nina Grigsby MD Work Phone: [facility] 09-23-2022 10:19-0500 Diastolic blood pressure 71 mm[Hg] Nina Grigsby MD Work Phone: [facility] 09-23-2022 10:19-0500 Heart rate 85 /min Nina Grigsby MD Work Phone: [facility] 09-23-2022 10:19-0500 Respiratory rate 16 /min Nina Grigsby MD Work Phone: [facility] 09-23-2022 10:19-0500 SaO2% (BldA) [Mass fraction] 96 % Nina Grigsby MD Work Phone: [facility] 09-23-2022 10:19-0500 Systolic blood pressure 113 mm[Hg] Nina Grigsby MD Work Phone: [facility] 08-20-2022 09:52-0500 Body height 167.6 cm Nina Grigsby MD Work Phone: [facility] 08-20-2022 09:52-0500 Body temperature 98.8 [degF] Nina Grigsby MD Work Phone: [facility] 08-20-2022 09:52-0500 Body weight 62.14 kg Nina Grigsby MD Work Phone: [facility] 08-20-2022 09:52-0500 Diastolic blood pressure 64 mm[Hg] Nina Grigsby MD Work Phone: [facility] 08-20-2022 09:52-0500 Heart rate 99 /min Nina Grigsby MD Work Phone: [facility] 08-20-2022 09:52-0500 Respiratory rate 16 /min Nina Grigsby MD Work Phone: [facility] 08-20-2022 09:52-0500 SaO2% (BldA) [Mass fraction] 96 % Nina Grigsby MD Work Phone: [facility] 08-20-2022 09:52-0500 Systolic blood pressure 122 mm[Hg] Nina Grigsby MD Work Phone: [facility] 06-25-2022 10:01-0500 Body height 167.6 cm Patricia Miller CONCERT MANAGER.TYPEWRITER TESTER Work Phone: [facility] 06-25-2022 10:01-0500 Body temperature 97.9 [degF] Patricia Miller APRN.TYPEWRITER TESTER Work Phone: [facility] 06-25-2022 10:01-0500 Body weight 59.97 kg Patricia Miller CONCERT MANAGER.TYPEWRITER TESTER Work Phone: [facility] 06-25-2022 10:01-0500 Diastolic blood pressure 74 mm[Hg] Patricia Miller APRN.TYPEWRITER TESTER Work Phone: [facility] 06-25-2022 10:01-0500 Heart rate 101 /min Patricia Miller APRN.TYPEWRITER TESTER Work Phone: [facility] 06-25-2022 10:01-0500 Respiratory rate 16 /min Patricia Miller APRN.TYPEWRITER TESTER Work Phone: [facility] 06-25-2022 10:01-0500 SaO2% (BldA) [Mass fraction] 94 % Patricia Miller APRN.TYPEWRITER TESTER Work Phone: [facility] 06-25-2022 10:01-0500 Systolic blood pressure 139 mm[Hg] Patricia Miller CONCERT MANAGER.TYPEWRITER TESTER Work Phone: [facility] 04-22-2022 11:27-0400 Body temperature 96.91 [degF] JC Limon MD Work Phone: [facility] 04-22-2022 11:27-0400 Body weight 60.33 kg JC Limon MD Work Phone: [facility] 04-22-2022 11:27-0400 Diastolic blood pressure 90 mm[Hg] JC Limon MD Work Phone: [facility] 04-22-2022 11:27-0400 Heart rate 103 /min JC Limon MD Work Phone: [facility] 04-22-2022 11:27-0400 Respiratory rate 18 /min JC Limon MD Work Phone: [facility] 04-22-2022 11:27-0400 SaO2% (BldA) [Mass fraction] 100 % JC Limon MD Work Phone: [facility] 04-22-2022 11:27-0400 Systolic blood pressure 169 mm[Hg] JC Limon MD Work Phone: [facility] 04-15-2022 09:12-0400 Body temperature 96.69 [degF] JC Limon MD Work Phone: [facility] 04-15-2022 09:12-0400 Body weight 58.97 kg JC Limon MD Work Phone: [facility] 04-15-2022 09:12-0400 Diastolic blood pressure 87 mm[Hg] JC Limon MD Work Phone: [facility] 04-15-2022 09:12-0400 Heart rate 90 /min JC Limon MD Work Phone: [facility] 04-15-2022 09:12-0400 Respiratory rate 18 /min JC Limon MD Work Phone: [facility] 04-15-2022 09:12-0400 SaO2% (BldA) [Mass fraction] 100 % JC Limon MD Work Phone: [facility] 04-15-2022 09:12-0400 Systolic blood pressure 143 mm[Hg] JC Limon MD Work Phone: [facility] 04-08-2022 09:15-0400 Body temperature 97.39 [degF] JC Limon MD Work Phone: [facility] 04-08-2022 09:15-0400 Body weight 54.88 kg JC Limon MD Work Phone: [facility] 04-08-2022 09:15-0400 Diastolic blood pressure 79 mm[Hg] JC Limon MD Work Phone: [facility] 04-08-2022 09:15-0400 Heart rate 101 /min JC Limon MD Work Phone: [facility] 04-08-2022 09:15-0400 Respiratory rate 16 /min JC Limon MD Work Phone: [facility] 04-08-2022 09:15-0400 SaO2% (BldA) [Mass fraction] 100 % JC Limon MD Work Phone: [facility] 04-08-2022 09:15-0400 Systolic blood pressure 159 mm[Hg] JC Limon MD Work Phone: [facility] 04-01-2022 09:48-0400 Body temperature 97.39 [degF] JC Limon MD Work Phone: [facility] 04-01-2022 09:48-0400 Body weight 58.97 kg JC Limon MD Work Phone: [facility] 04-01-2022 09:48-0400 Heart rate 98 /min JC Limon MD Work Phone: [facility] 04-01-2022 09:48-0400 SaO2% (BldA) [Mass fraction] 100 % JC Limon MD Work Phone: [facility] 03-26-2022 08:50-0400 Body temperature 97.5 [degF] JC Limon MD Work Phone: [facility] 03-26-2022 08:50-0400 Body weight 58.97 kg JC Limon MD Work Phone: [facility] 03-26-2022 08:50-0400 Diastolic blood pressure 62 mm[Hg] JC Limon MD Work Phone: [facility] 03-26-2022 08:50-0400 Heart rate 92 /min JC Limon MD Work Phone: [facility] 03-26-2022 08:50-0400 Respiratory rate 16 /min JC Limon MD Work Phone: [facility] 03-26-2022 08:50-0400 SaO2% (BldA) [Mass fraction] 99 % JC Limon MD Work Phone: [facility] 03-26-2022 08:50-0400 Systolic blood pressure 114 mm[Hg] JC Limon MD Work Phone: [facility] 03-19-2022 09:20-0400 Body height 167.6 cm Patricia Miller APRN.TYPEWRITER TESTER Work Phone: [facility] 03-19-2022 09:20-0400 Body temperature 97.59 [degF] Patricia Miller APRN.TYPEWRITER TESTER Work Phone: [facility] 03-19-2022 09:20-0400 Body weight 59.51 kg Patricia Miller APRN.TYPEWRITER TESTER Work Phone: [facility] 03-19-2022 09:20-0400 Diastolic blood pressure 78 mm[Hg] Patricia Miller APRN.TYPEWRITER TESTER Work Phone: [facility] 03-19-2022 09:20-0400 Heart rate 90 /min Patricia Miller APRN.TYPEWRITER TESTER Work Phone: [facility] 03-19-2022 09:20-0400 Respiratory rate 16 /min Patricia Miller APRN.TYPEWRITER TESTER Work Phone: [facility] 03-19-2022 09:20-0400 SaO2% (BldA) [Mass fraction] 97 % Patricia Miller APRN.TYPEWRITER TESTER Work Phone: [facility] 03-19-2022 09:20-0400 Systolic blood pressure 117 mm[Hg] Patricia Miller APRN.TYPEWRITER TESTER Work Phone: [facility] 02-20-2022 14:20-0400 Body height 167.6 cm Patricia Miller APRN.TYPEWRITER TESTER Work Phone: [facility] 02-20-2022 14:20-0400 Body temperature 97.2 [degF] Patricia Miller APRN.TYPEWRITER TESTER Work Phone: [facility] 02-20-2022 14:20-0400 Body weight 59.88 kg Patricia Miller APRN.TYPEWRITER TESTER Work Phone: [facility] 02-20-2022 14:20-0400 Diastolic blood pressure 60 mm[Hg] Patricia Miller APRN.TYPEWRITER TESTER Work Phone: [facility] 02-20-2022 14:20-0400 Heart rate 108 /min Patricia Miller APRN.TYPEWRITER TESTER Work Phone: [facility] 02-20-2022 14:20-0400 Respiratory rate 16 /min Patricia Miller APRN.TYPEWRITER TESTER Work Phone: [facility] 02-20-2022 14:20-0400 SaO2% (BldA) [Mass fraction] 98 % Patricia Miller APRN.TYPEWRITER TESTER Work Phone: [facility] 02-20-2022 14:20-0400 Systolic blood pressure 95 mm[Hg] Patricia Miller APRN.TYPEWRITER TESTER Work Phone: [facility] 02-07-2022 15:33-0400 Body height 167.6 cm Patricia Miller APRN.TYPEWRITER TESTER Work Phone: [facility] 02-07-2022 15:33-0400 Body temperature 97.59 [degF] Patricia Miller APRN.TYPEWRITER TESTER Work Phone: [facility] 02-07-2022 15:33-0400 Body weight 59.42 kg Patricia Miller CONCERT MANAGER.TYPEWRITER TESTER Work Phone: [facility] 02-07-2022 15:33-0400 Diastolic blood pressure 59 mm[Hg] Patricia Miller CONCERT MANAGER.TYPEWRITER TESTER Work Phone: [facility] 02-07-2022 15:33-0400 Heart rate 110 /min Patricia Miller CONCERT MANAGER.TYPEWRITER TESTER Work Phone: [facility] 02-07-2022 15:33-0400 Respiratory rate 16 /min Patricia Miller CONCERT MANAGER.TYPEWRITER TESTER Work Phone: [facility] 02-07-2022 15:33-0400 SaO2% (BldA) [Mass fraction] 98 % Patricia Miller CONCERT MANAGER.TYPEWRITER TESTER Work Phone: [facility] 02-07-2022 15:33-0400 Systolic blood pressure 110 mm[Hg] Patricia Miller CONCERT MANAGER.TYPEWRITER TESTER Work Phone: [facility] 01-30-2022 15:11-0400 Body temperature 96.69 [degF] JC Limon MD Work Phone: [facility] 01-30-2022 15:11-0400 Body weight 60.33 kg JC Limon MD Work Phone: [facility] 01-30-2022 15:11-0400 Diastolic blood pressure 67 mm[Hg] JC Limon MD Work Phone: [facility] 01-30-2022 15:11-0400 Heart rate 91 /min JC Limon MD Work Phone: [facility] 01-30-2022 15:11-0400 SaO2% (BldA) [Mass fraction] 100 % JC Limon MD Work Phone: [facility] 01-30-2022 15:11-0400 Systolic blood pressure 106 mm[Hg] JC Limon MD Work Phone: [facility] 01-29-2022 08:42-0400 Body height 167.6 cm Verito Whelan MD Work Phone: [facility] 01-29-2022 08:42-0400 Body temperature 97.39 [degF] Verito Whelan MD Work Phone: [facility] 01-29-2022 08:42-0400 Body weight 58.8 kg Verito Whelan MD Work Phone: [facility] 01-29-2022 08:42-0400 Diastolic blood pressure 64 mm[Hg] Verito Whelan MD Work Phone: [facility] 01-29-2022 08:42-0400 Heart rate 60 /min Verito Whelan MD Work Phone: [facility] 01-29-2022 08:42-0400 SaO2% (BldA) [Mass fraction] 94 % Verito Whelan MD Work Phone: [facility] 01-29-2022 08:42-0400 Systolic blood pressure 139 mm[Hg] Verito Whelan MD Work Phone: [facility] 01-22-2022 13:39-0400 Body height 168.8 cm Nina Grigsby MD Work Phone: [facility] 01-22-2022 13:39-0400 Body temperature 98.01 [degF] Nina Grigsby MD Work Phone: [facility] 01-22-2022 13:39-0400 Body weight 59.78 kg Nina Grigsby MD Work Phone: [facility] 01-22-2022 13:39-0400 Diastolic blood pressure 61 mm[Hg] Nina Grigsby MD Work Phone: [facility] 01-22-2022 13:39-0400 Heart rate 90 /min Nina Grigsby MD Work Phone: [facility] 01-22-2022 13:39-0400 Respiratory rate 18 /min Nina Grigsby MD Work Phone: [facility] 01-22-2022 13:39-0400 SaO2% (BldA) [Mass fraction] 100 % Nina Grigsby MD Work Phone: [facility] 01-22-2022 13:39-0400 Systolic blood pressure 110 mm[Hg] Nina Grigsby MD Work Phone: [facility] 01-14-2022 08:21-0400 Body height 168.8 cm Nina Grigsby MD Work Phone: [facility] 01-14-2022 08:21-0400 Body temperature 97.2 [degF] Nina Grigsby MD Work Phone: [facility] 01-14-2022 08:21-0400 Body weight 60.24 kg Nina Grigsby MD Work Phone: [facility] 01-14-2022 08:21-0400 Diastolic blood pressure 65 mm[Hg] Nina Grigsby MD Work Phone: [facility] 01-14-2022 08:21-0400 Heart rate 85 /min Nina Grigsby MD Work Phone: [facility] 01-14-2022 08:21-0400 Respiratory rate 16 /min Nina Grigsby MD Work Phone: [facility] 01-14-2022 08:21-0400 SaO2% (BldA) [Mass fraction] 99 % Nina Girgsby MD Work Phone: [facility] 01-14-2022 08:21-0400 Systolic blood pressure 123 mm[Hg] Nina Grigsby MD Work Phone: [facility] 12-24-2021 09:26-0400 Body height 168.8 cm Nina Grigsby MD Work Phone: [facility] 12-24-2021 09:26-0400 Body temperature 97.81 [degF] Nina Grigsby MD Work Phone: [facility] 12-24-2021 09:26-0400 Body weight 61.05 kg Nina Grigsby MD Work Phone: [facility] 12-24-2021 09:26-0400 Diastolic blood pressure 70 mm[Hg] Nina Grigsby MD Work Phone: [facility] 12-24-2021 09:26-0400 Heart rate 81 /min Nina Grigsby MD Work Phone: [facility] 12-24-2021 09:26-0400 Respiratory rate 16 /min Nina Grigsby MD Work Phone: [facility] 12-24-2021 09:26-0400 SaO2% (BldA) [Mass fraction] 100 % Nina Grigsby MD Work Phone: [facility] 12-24-2021 09:26-0400 Systolic blood pressure 120 mm[Hg] Nina Grigsby MD Work Phone: [facility] 12-03-2021 09:29-0400 Body height 168.8 cm Yusef Jessica PA-C Work Phone: [facility] 12-03-2021 09:29-0400 Body temperature 97.81 [degF] Yusef Jessica PA-C Work Phone: [facility] 12-03-2021 09:29-0400 Body weight 59.69 kg Yusef Jessica PA-C Work Phone: [facility] 12-03-2021 09:29-0400 Diastolic blood pressure 63 mm[Hg] Yusef Jessica PA-C Work Phone: [facility] 12-03-2021 09:29-0400 Heart rate 92 /min Yusef Jessica PA-C Work Phone: [facility] 12-03-2021 09:29-0400 Respiratory rate 16 /min Yusef Jessica PA-C Work Phone: [facility] 12-03-2021 09:29-0400 SaO2% (BldA) [Mass fraction] 98 % Yusef Jessica PA-C Work Phone: [facility] 12-03-2021 09:29-0400 Systolic blood pressure 125 mm[Hg] Yusef Pandya PA-C Work Phone: [facility] 11-30-2021 10:29-0400 Body height 168.8 cm Patricia Miller CONCERT MANAGER.TYPEWRITER TESTER Work Phone: [facility] 11-30-2021 10:29-0400 Body temperature 97.3 [degF] Patricia Miller CONCERT MANAGER.TYPEWRITER TESTER Work Phone: [facility] 11-30-2021 10:29-0400 Body weight 58.24 kg Patricia Miller CONCERT MANAGER.TYPEWRITER TESTER Work Phone: [facility] 11-30-2021 10:29-0400 Diastolic blood pressure 55 mm[Hg] Patricia Miller CONCERT MANAGER.TYPEWRITER TESTER Work Phone: [facility] 11-30-2021 10:29-0400 Heart rate 90 /min Patricia Miller APRN.TYPEWRITER TESTER Work Phone: [facility] 11-30-2021 10:29-0400 Respiratory rate 16 /min Patricia Miller APRN.TYPEWRITER TESTER Work Phone: [facility] 11-30-2021 10:29-0400 SaO2% (BldA) [Mass fraction] 98 % Patricia Miller APRN.TYPEWRITER TESTER Work Phone: [facility] 11-30-2021 10:29-0400 Systolic blood pressure 95 mm[Hg] Patricia Miller CONCERT MANAGER.TYPEWRITER TESTER Work Phone: [facility] 11-26-2021 09:24-0400 Body height 168.8 cm Nina Grigsby MD Work Phone: [facility] 11-26-2021 09:24-0400 Body temperature 97.5 [degF] Nina Grigsby MD Work Phone: [facility] 11-26-2021 09:24-0400 Body weight 59.06 kg Nina Grigsby MD Work Phone: [facility] 11-26-2021 09:24-0400 Diastolic blood pressure 65 mm[Hg] Nina Grigsby MD Work Phone: [facility] 11-26-2021 09:24-0400 Heart rate 75 /min Nina Grigsby MD Work Phone: [facility] 11-26-2021 09:24-0400 Respiratory rate 16 /min Nina Grigsby MD Work Phone: [facility] 11-26-2021 09:24-0400 SaO2% (BldA) [Mass fraction] 100 % Nina Grigsby MD Work Phone: [facility] 11-26-2021 09:24-0400 Systolic blood pressure 111 mm[Hg] Nina Grigsby MD Work Phone: [facility] 11-21-2021 15:10-0400 Body temperature 98.6 [degF] Chair Sanders Work Phone: [facility] 11-21-2021 15:10-0400 Diastolic blood pressure 65 mm[Hg] Chair Sanders Work Phone: [facility] 11-21-2021 15:10-0400 Heart rate 78 /min Chair Sanders Work Phone: [facility] 11-21-2021 15:10-0400 Respiratory rate 16 /min Chair Jose Work Phone: [facility] 11-21-2021 15:10-0400 SaO2% (BldA) [Mass fraction] 99 % Chair Sanders Work Phone: [facility] 11-21-2021 15:10-0400 Systolic blood pressure 119 mm[Hg] Chair Jose Work Phone: [facility] 11-19-2021 10:41-0400 Diastolic blood pressure 71 mm[Hg] Chair Jose Work Phone: [facility] 11-19-2021 10:41-0400 Systolic blood pressure 123 mm[Hg] Chair Sanders Work Phone: [facility] 11-19-2021 09:20-0400 Body temperature 98.4 [degF] Chair Sanders Work Phone: [facility] 11-19-2021 09:20-0400 Heart rate 90 /min Chair Jose Work Phone: [facility] 11-19-2021 09:20-0400 Respiratory rate 18 /min Chair Jose Work Phone: [facility] 11-19-2021 09:20-0400 SaO2% (BldA) [Mass fraction] 99 % Chair Jose Work Phone: [facility] 11-16-2021 10:13-0400 Diastolic blood pressure 95 mm[Hg] Chair Sanders Work Phone: [facility] 11-16-2021 10:13-0400 Systolic blood pressure 170 mm[Hg] Chair Sanders Work Phone: [facility] 11-16-2021 09:02-0400 Body temperature 97.39 [degF] Chair Jose Work Phone: [facility] 11-16-2021 09:02-0400 Heart rate 63 /min Chair Sanders Work Phone: [facility] 11-16-2021 09:02-0400 Respiratory rate 18 /min Chair Sanders Work Phone: [facility] 11-16-2021 09:02-0400 SaO2% (BldA) [Mass fraction] 99 % Chair Sanders Work Phone: [facility] 11-15-2021 14:36-0400 Body temperature 97 [degF] Chair Jose Work Phone: [facility] 11-15-2021 14:36-0400 Diastolic blood pressure 74 mm[Hg] Chair Sanders Work Phone: [facility] 11-15-2021 14:36-0400 Heart rate 65 /min Chair Jose Work Phone: [facility] 11-15-2021 14:36-0400 Respiratory rate 18 /min Chair Sanders Work Phone: [facility] 11-15-2021 14:36-0400 SaO2% (BldA) [Mass fraction] 99 % Chair Sanders Work Phone: [facility] 11-15-2021 14:36-0400 Systolic blood pressure 137 mm[Hg] Chair Jose Work Phone: [facility] 11-13-2021 11:36-0400 Diastolic blood pressure 69 mm[Hg] Chair Sanders Work Phone: [facility] 11-13-2021 11:36-0400 Heart rate 70 /min Chair Sanders Work Phone: [facility] 11-13-2021 11:36-0400 Respiratory rate 18 /min Chair Sanders Work Phone: [facility] 11-13-2021 11:36-0400 SaO2% (BldA) [Mass fraction] 99 % Chair Sanders Work Phone: [facility] 11-13-2021 11:36-0400 Systolic blood pressure 116 mm[Hg] Chair Jose Work Phone: [facility] 11-05-2021 08:52-0400 Body height 168.8 cm Patricia Miller APRN.TYPEWRITER TESTER Work Phone: [facility] 11-05-2021 08:52-0400 Body temperature 97.3 [degF] Patricia Miller APRN.TYPEWRITER TESTER Work Phone: [facility] 11-05-2021 08:52-0400 Body weight 58.6 kg Patricia Miller APRN.TYPEWRITER TESTER Work Phone: [facility] 11-05-2021 08:52-0400 Diastolic blood pressure 66 mm[Hg] Patricia Miller APRN.TYPEWRITER TESTER Work Phone: [facility] 11-05-2021 08:52-0400 Heart rate 93 /min Patricia Miller APRN.TYPEWRITER TESTER Work Phone: [facility] 11-05-2021 08:52-0400 Respiratory rate 16 /min Patricia Miller APRN.TYPEWRITER TESTER Work Phone: [facility] 11-05-2021 08:52-0400 SaO2% (BldA) [Mass fraction] 98 % Patricia Miller APRN.TYPEWRITER TESTER Work Phone: [facility] 11-05-2021 08:52-0400 Systolic blood pressure 115 mm[Hg] Patricia Miller APRN.TYPEWRITER TESTER Work Phone: [facility] 10-24-2021 14:18-0400 Body temperature 97.39 [degF] JC Limon MD Work Phone: [facility] 10-24-2021 14:18-0400 Body weight 58.51 kg JC Limon MD Work Phone: [facility] 10-24-2021 14:18-0400 Diastolic blood pressure 67 mm[Hg] JC Limon MD Work Phone: [facility] 10-24-2021 14:18-0400 Heart rate 101 /min JC Limon MD Work Phone: [facility] 10-24-2021 14:18-0400 Respiratory rate 16 /min JC Limon MD Work Phone: [facility] 10-24-2021 14:18-0400 SaO2% (BldA) [Mass fraction] 98 % JC Limon MD Work Phone: [facility] 10-24-2021 14:18-0400 Systolic blood pressure 111 mm[Hg] JC Limon MD Work Phone: [facility] 10-19-2021 09:58-0400 Body height 168.8 cm Renetta Ponce MD Work Phone: [facility] 10-19-2021 09:58-0400 Body temperature 97.59 [degF] Renetta Ponce MD Work Phone: [facility] 10-19-2021 09:58-0400 Body weight 58.33 kg Renetta Ponce MD Work Phone: [facility] 10-19-2021 09:58-0400 Diastolic blood pressure 72 mm[Hg] Renetta Ponce MD Work Phone: [facility] 10-19-2021 09:58-0400 Heart rate 98 /min Renetta Ponce MD Work Phone: [facility] 10-19-2021 09:58-0400 Respiratory rate 20 /min Renetta Ponce MD Work Phone: [facility] 10-19-2021 09:58-0400 SaO2% (BldA) [Mass fraction] 100 % Renetta Ponce MD Work Phone: [facility] 10-19-2021 09:58-0400 Systolic blood pressure 127 mm[Hg] Renetta Ponce MD [facility] [facility] 10[facility]11-2021 15:44-0400 Body height 170.2 cm Aracelis Carrillo APRN.TYPEWRITER TESTER Work Phone: [facility] 10-11-2021 15:44-0400 Body temperature 98.71 [degF] Aracelis Rehmans CONCERT MANAGER.TYPEWRITER TESTER Work Phone: [facility] 10-11-2021 15:44-0400 Body weight 58.97 kg Aracelis Carrillo CONCERT MANAGER.TYPEWRITER TESTER Work Phone: [facility] 10-11-2021 15:44-0400 Diastolic blood pressure 58 mm[Hg] Aracelis Carrillo CONCERT MANAGER.TYPEWRITER TESTER Work Phone: [facility] 10-11-2021 15:44-0400 Heart rate 85 /min Aracelis Carrillo CONCERT MANAGER.TYPEWRITER TESTER Work Phone: [facility] 10-11-2021 15:44-0400 SaO2% (BldA) [Mass fraction] 98 % Aracelis Carrillo CONCERT MANAGER.TYPEWRITER TESTER Work Phone: [facility] 10-11-2021 15:44-0400 Systolic blood pressure 99 mm[Hg] Aracelis Wegas CONCERT MANAGER.TYPEWRITER TESTER Work Phone: [facility] Encounters Encounter Date Encounter Type Care Provider Facility Start: 04-19-2024 End: 04-20-2024 Refill Estella Fish APRN.TYPEWRITER TESTER Work Phone: Hematology/Oncology Comment on above: Refill Request Start: 04-19-2024 End: 04-19-2024 Telephone encounter Julieth Tapia [facility] Comment on above: Care Coordination Start: 04-06-2024 End: 04-06-2024 Telephone encounter Denita Rai RN Work Phone: Hematology/Oncology Comment on above: Care Coordination (P t Update) Start: 04-01-2024 End: 04-02-2024 Telephone encounter Denita Rai RN Work Phone: Hematology/Oncology Comment on above: Care Coordination (C ompression Sleeve) Start: 03-31-2024 End: 04-06-2024 Telephone encounter Denita Rai RN Work Phone: Hematology/Oncology Comment on above: Care Coordination (D ischarge Follow Up Call) Care Coordination (E mergency Room Call Back; Follow Up Appointment) Start: 03-31-2024 End: 04-06-2024 ambulatory ASH COLLECTOR Enrique Esposito Facility:CD:[id number] Start: 03-28-2024 End: 03-29-2024 Refill Estella Fish APRN.TYPEWRITER TESTER Work Phone: Hematology/Oncology Comment on above: Refill Request Start: 03-19-2024 End: 03-20-2024 ambulatory Jair Magdalena Facility:[facility] Start: 03-19-2024 End: 03-20-2024 Evaluation and management of inpatient [facility] [place] [facility] Work Phone: Start: 03-19-2024 End: 03-20-2024 observation encounter NON STAFF [facility] Work Phone: Start: 03-19-2024 End: 03-19-2024 Emergency department patient visit [facility] Work Phone: Start: 03-18-2024 End: 03-18-2024 Emergency department patient visit [facility] Work Phone: Start: 03-18-2024 End: 04-06-2024 Telephone encounter Denita Rai RN Work Phone: Hematology/Oncology Comment on above: Care Coordination (E R) Start: 03-18-2024 End: 03-18-2024 Patient encounter procedure [...] Start: 03-17-2024 End: 03-17-2024 ambulatory ESTELLA FISH Facility:[facility] Start: 03-17-2024 End: 03-17-2024 Nutrition therapy Estella J Claudia CONCERT MANAGER.TYPEWRITER TESTER Work Phone: Palliative Medicine Comment on above: Encounter for pallia tive care (Primary Dx); Neuropathy due to chemotherapeutic drug (HCC); Neoplasm related pain; Chronic left shoulder pain; Malignant neoplasm of upper lobe of left lung (HCC); Nausea; Weight loss, unintentional; Protein-calorie malnutrition, unspecified severity (HCC); Anxiety Start: 03-17-2024 End: 03-17-2024 Telemedicine consultation with patient Estella Poloanay CONCERT MANAGER.TYPEWRITER TESTER Work Phone: Palliative Medicine Start: 03-17-2024 End: 03-17-2024 ambulatory ASH COLLECTOR Enrique Esposito Facility:[facility] Start: 03-15-2024 End: 03-15-2024 Telephone encounter Denita Rai RN Work Phone: Hematology/Oncology Comment on above: Care Coordination (A ppointment Questions) Start: 03-15-2024 End: 03-15-2024 ambulatory NIAN GRIGSBY Facility:[facility] Start: 03-15-2024 End: 03-15-2024 Patient encounter procedure Merary Lucas MD Work Phone: Pulmonary Medicine Comment on above: Centrilobular emphys luke (HCC) (Primary Dx); Malignant neoplasm of upper lobe of left lung (HCC); Coronary artery disease involving confederated coos coronary artery of conf[place] co[place] heart without angina pectoris; PAD (peripheral artery [...] [C34.92] Start: 03-01-2024 Telephone encounter Estella Fish APRN.TYPEWRITER TESTER Work Phone: Palliative Medicine Comment on above: Refill Request Start: 03-01-2024 End: 03-01-2024 ambulatory ASH COLLECTOR Enrique Esposito Facility:[facility] Start: 02-24-2024 End: 03-10-2024 Telephone encounter Denita [...] 02-07-2024 End: 02-07-2024 Emergency department patient visit [facility] Work Phone: Start: 02-06-2024 End: 02-06-2024 ambulatory ASH COLLECTOR Enrique L Cate Facility:[facility] Start: 02-04-2024 Refill Nina Grigsby MD Work Phone: [facility] Comment on above: Refill Request Start: 02-03-2024 Telephone encounter Yusef Spicer sser PA-C [facility]: 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 ) Start: 01-12-2024 End: 01-12-2024 ambulatory ASH COLLECTOR Enrique L Cate Facility:[facility] Start: 01-09-2024 Telephone encounter Bernadine Rodriguez RN Work Phone: Hematology/Oncology Comment on above: Care Coordination (i nsomnia) Start: 01-08-2024 End: 01-08-2024 ambulatory ASH COLLECTOR Enrique Esposito Facility:[facility] [place] Start: 12-26-2023 Telephone encounter Julieth Tapia [facility] Comment on above: Care Coordination (P [...] pain Start: 12-23-2023 End: 12-23-2023 ambulatory ENRIQUE SALAZARAB Facility:[facility] Start: 12-22-2023 End: 12-22-2023 Patient encounter procedure Hector Limon MD Work Phone: Radiation Oncology Comment on above: Malignant neoplasm o f upper lobe of left lung (HCC) (Primary Dx) Start: 12-22-2023 End: 12-22-2023 ambulatory ENRIQUE ESPOSITO Facility:[facility] Start: 12-19-2023 End: 12-19-2023 ambulatory Hector LIMON Facility:[facility] Start: 12-18-2023 End: 12-18-2023 ambulatory Hector DOSHIEVA Facility:[facility] Start: 12-17-2023 End: 12-17-2023 ambulatory Hector LIMON Facility:[facility] Start: 12-16-2023 End: 12-16-2023 ambulatory ENRIQUE ESPOSITO Facility:[facility] Start: 12-16-2023 End: 12-16-2023 Patient encounter procedure Hector Limon MD Work Phone: Radiation Oncology Comment on above: Malignant neoplasm o f upper lobe of left lung (HCC) (Primary Dx) Start: 12-16-2023 Telephone encounter Estella Fish APRN.TYPEWRITER TESTER Work Phone: Radiation Oncology Comment on above: Patient Update; Medi cation Problem Start: 12-12-2023 End: 12-12-2023 ambulatory Hector DAVISMarcella Facility:[facility] Start: 12-11-2023 End: 12-11-2023 ambulatory Hector DOSHIEVA Facility:[facility] Start: 12-10-2023 End: 12-10-2023 ambulatory Hector LIMON Facility:[facility] Start: 12-10-2023 End: 12-10-2023 Patient [...] Planning Start: 12-03-2023 Telephone encounter Estella Fish APRN.TYPEWRITER TESTER Work Phone: Radiation Oncology Comment on above: Patient Update Start: 12-03-2023 End: 12-03-2023 Subsequent hospital visit by physician Hector Limon MD Work Phone: Radiology [facility] Comment on above: Malignant neoplasm o f upper lobe of left lung (HCC) [C34.12] Start: 12-03-2023 End: 12-04-2023 ambulatory ENRIQUE RAMOS CATE Facility:[facility] Start: 12-02-2023 End: 12-02-2023 ambulatory [...] Comment on above: Research (IRB [phone] [id number] Informed Consent) Start: 11-25-2023 End: 11-26-2023 ambulatory [...] Start: 11-21-2023 End: 11-21-2023 ambulatory ESTELLA FISH Facility:[facility] Start: 11-21-2023 End: 11-21-2023 Patient encounter procedure Estella Fish CONCERT MANAGER.TYPEWRITER TESTER Work Phone: Palliative Medicine Comment on above: [...] LFTs Start: 10-21-2023 Telephone encounter Estella Fish APRN.TYPEWRITER TESTER Work Phone: Hematology/Oncology Comment on above: Pain Start: 10-21-2023 End: 10-21-2023 ambulatory NINA GRIGSBY Facility:[facility] Start: 10-21-2023 End: 10-21-2023 Subsequent hospital visit [...] emphysema (HCC) Start: 10-15-2023 End: 10-15-2023 ambulatory ASH COLLECTOR Enrique L Cate Facility[facility] Start: 10-08-2023 End: 10-08-2023 ambulatory ASH COLLECTOR [facility] L [facility] Start: 09-22-2023 End: 09-22-2023 Nutrition therapy Dominique [...] Start: 09-15-2023 End: 09-15-2023 ambulatory NINA GRIGSBY Facility:[facility] Start: 09-15-2023 End: 09-15-2023 Subsequent hospital visit by physician Arrival Time Radiology Work Phone: Radiology [facility] Comment on above: 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] Start: 09-02-2023 End: 09-02-2023 ambulatory ASH COLLECTOR Enrique L Cate Facility:[facility] Start: 08-26-2023 Telephone encounter Denita rushing RN [...] associated pain Start: 08-20-2023 End: 08-20-2023 ambulatory ASH COLLECTOR Enrique L Cate Facility:[facility] [place] Start: 08-15-2023 End: 08-15-2023 ambulatory ESTELLA FISH Facility:[facility] Start: 07-28-2023 End: 07-28-2023 ambulatory PATRICIA MILLER Facility:[facility] Start: 07-23-2023 End: 07-23-2023 ambulatory ASH COLLECTOR Enrique L Cate Facility:[facility] Start: 07-09-2023 End: 07-09-2023 ambulatory ASH COLLECTOR Enrique L Cate Facility:[facility] Start: 06-30-2023 End: 06-30-2023 Patient encounter procedure Nina Grigsby MD Work Phone: [place] Start: 06-30-2023 End: 07-01-2023 ambulatory Nina Grigsby MD Work Phone: Hematology/Oncology Comment on above: 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); Tonsillar mass; Primary hypertension; Centrilobular emphysema (HCC); Coronary artery disease involving confederated coos coronary artery of conf[place] co[place] heart without angina pectoris; Hypothyroidism due to medication; Cancer related pain Start: 06-24-2023 End: 06-24-2023 ambulatory CHRISTINA AZUL Facility:[facility] Start: 06-23-2023 End: 06-23-2023 ambulatory Hector LIMON Facility:[facility] Start: 06-20-2023 End: 06-20-2023 ambulatory CHRISTINA AZUL Facility:[facility] Start: 06-19-2023 End: 06-19-2023 ambulatory CHRISTINA AZUL Facility:[facility] Start: 06-18-2023 End: 06-18-2023 ambulatory NYDIA PARKS Facility:[facility] Start: 06-13-2023 End: 06-13-2023 ambulatory ESTELLA FISH Facility:[facility] Start: 06-13-2023 End: 06-13-2023 Patient encounter procedure Estella Fish CONCERT MANAGER.TYPEWRITER TESTER Work Phone: Palliative Medicine Comment on above: Palliative care by s pecialist (Primary Dx); Primary malignant neoplasm of left lung metastatic to other site (HCC); Cancer related pain; Opioid contract exists; Insomnia due to medical condition; Anorexia; Protein-calorie malnutrition, unspecified severity (HCC); Nausea Start: 06-10-2023 End: 06-10-2023 Patient encounter procedure [facility] Provider [facility] Department Comment on above: Oropharnyx cancer (H CC) (Primary Dx) Start: 06-10-2023 Radiation Oncology Note Hector Limon MD Work Phone: Radiation Oncology Comment on above: Simulation Note Treatment Planning Start: 06-10-2023 End: 06-10-2023 ambulatory Hector LIMON Facility:[facility] Start: 06-10-2023 End: 06-10-2023 Subsequent hospital visit by physician Hector Limon MD Work Phone: Radiology [facility] Start: 06-03-2023 Refill Nina Grigsby MD Work Phone: Hematology/Oncology Comment on above: Erroneous encounter- disregard Start: 06-02-2023 End: 06-02-2023 Patient encounter procedure Patricia Miller APRN.TYPEWRITER TESTER Work Phone: [facility] Start: 06-02-2023 End: 06-02-2023 ambulatory Patricia Miller APRN.TYPEWRITER TESTER Work Phone: Hematology/Oncology Comment on above: Malignant neoplasm o f upper lobe of left lung (HCC) (Primary Dx); Centrilobular emphysema (HCC); CAD in confed[place] coos artery; PVD (peripheral vascular disease) (HCC); Cancer related pain; Tonsillar mass; Abnormal LFTs; Anxiety; Hypothyroidism due to medication Start: 05-30-2023 End: 05-30-2023 Patient encounter procedure Hector Limon MD Work Phone: Radiation Oncology Comment on above: Oropharnyx cancer (H CC) (Primary Dx) Start: 05-30-2023 End: 05-30-2023 ambulatory CHRISTINA LOPESRADHA AZUL Facility:[facility] Start: 05-27-2023 End: 05-27-2023 ambulatory NINA GRIGSBY Facility:[facility] Start: 05-27-2023 End: 05-27-2023 Patient [...] End: 05-16-2023 Patient encounter procedure Estella Fish CONCERT MANAGER.TYPEWRITER TESTER Work Phone: Palliative Medicine Comment on above: Palliative care by s pecialist (Primary Dx); Neuropathy due to chemotherapeutic drug (HCC) ; Nausea; Anorexia; Protein-calorie malnutrition, unspecified severity (HCC); Anxiety; Insomnia due to medical condition Refill Request Start: 05-16-2023 End: 05-16-2023 ambulatory ESTELLA FISH Facility:[facility] Start: 05-15-2023 Telephone encounter Denita rushing RN Work Phone: Hematology/Oncology Comment on above: Care Coordination (T SH Results) Care Coordination (P ain; Constipation) Start: 05-13-2023 Telephone encounter Analisa Villatoro [facility] Work Phone: Hematology/Oncology Comment on above: Treatment Planning Refill Request Start: 05-13-2023 End: 05-13-2023 ambulatory NINA Naranjo GRIGSBY Facility:[facility] Start: 05-12-2023 End: 05-12-2023 ambulatory CHRISTINA AZUL Facility:[facility] Start: 05-12-2023 End: 05-12-2023 Subsequent hospital visit by physician Arrival Time Radiology Work Phone: Radiology [facility] Comment on above: 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] Start: 05-08-2023 Telephone encounter Denita rushing RN Work Phone: Hematology/Oncology Comment on above: Care Coordination (S ore Throat) Start: 05-05-2023 Refill Analisa Victor icnathalia [facility] Work Phone: [facility] Comment on above: Refill Request Start: 04-23-2023 Telephone encounter Denita rushing RN Work Phone: Hematology/Oncology Comment on above: Care Coordination (T SH Results) Start: 04-22-2023 End: 04-23-2023 ambulatory CHRISTINA AZUL Facility:[facility] Start: 04-22-2023 End: 04-22-2023 ambulatory CHRISTINA AZUL Facility:[facility] Start: 04-16-2023 End: 04-16-2023 ambulatory ASH COLLECTOR Enrique Esposito Facility:[facility] Start: 04-08-2023 Telephone encounter Denita rusihng RN Work Phone: Hematology/Oncology Comment on above: Care Coordination (V accine Question) Start: 04-01-2023 End: 04-01-2023 Subsequent hospital visit by physician General Christina Mendez Mc Work Phone: Radiology Comment on above: 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] Start: 04-01-2023 End: 04-01-2023 ambulatory Patricia Miller APRN.CNP Work Phone: Hematology/Oncology Comment on above: 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); Cancer related pain; Abnormal LFTs; Anxiety; Centrilobular emphysema (HCC); PVD (peripheral vascular disease) (HCC); Anemia due to antineoplastic chemotherapy; Skin rash Malignant neoplasm o f upper lobe of left lung (HCC) (Primary Dx) Start: 04-01-2023 End: 04-01-2023 Patient encounter procedure Patricia Miller APRN.TYPEWRITER TESTER Work Phone: [place] Start: 03-11-2023 End: 03-11-20[address] amb[address] [place] [address] Work Phone: Hematology/Oncology Comment on above: Malignant [...] Start: 02-18-2023 End: 02-18-2023 ambulatory Chair [address] Work Phone: Hematology/Oncology Comment on above: Malignant [...] Start: 01-28-2023 End: 01-28-2023 Patient encounter procedure G Erasto Limon MD Work Phone: Radiation Oncology Comment on above: Malignant neoplasm o f upper lobe of left lung (HCC) (Primary Dx) Start: 01-28-2023 End: 01-28-2023 ambulatory Chair 18 [address] Work Phone: Hematology/Oncology Comment on above: Malignant neoplasm o f upper lobe of left lung (HCC) (Primary Dx) Start: 01-17-2023 End: 01-17-2023 Subsequent hospital visit by physician Arrival Time Radiology Work Phone: Radiology [facility] Comment on above: Malignant neoplasm o f unspecified part of unspecified bronchus or lung (HCC) [C34.90] Start: 01-13-2023 Refill Denita naranjo RN Work Phone: Hematology/Oncology Comment on above: Refill Request (Xana x) Start: 01-09-2023 Telephone encounter Nina cutler MD Work Phone: Hematology/Oncology Comment on above: Records faxed Start: 01-08-2023 Telephone encounter Minna Madrigal CREAM DIPPER H ematology/Oncology Comment on above: Social Work Services Appointment Start: 01-07-2023 Telephone encounter Patricia davidson APRN.TYPEWRITER TESTER [facility]: [facility] Comment on above: No Show Start: 01-07-2023 [...] patient visit MD Christina Azul Work Phone: [facility] Work Phone: Start: 01-03-2023 Telephone [...] 11-25-2022 End: 11-25-2022 Nutrition therapy Patricia Miller APRN.TYPEWRITER TESTER Work Phone: Hematology/Oncology Comment on above: Malignant neoplasm o f upper lobe of left lung (HCC) (Primary Dx); Centrilobular emphysema (HCC); Abnormal LFTs; Cancer related pain; PVD (peripheral vascular disease) (HCC); Malaise and fatigue; Protein-calorie malnutrition, unspecified severity (HCC) Start: 11-25-2022 End: 11-25-2022 Patient encounter procedure Patricia Miller APRN.TYPEWRITER TESTER Work Phone: [facility] Start: 11-21-2022 Telephone encounter [...] encounter procedure Nina Grigsby MD Work Phone: [place] Start: 11-14-2022 Telephone encounter Nina cutler MD Work Phone: Hematology/Oncology Comment on above: Lab Orders Start: 11-12-2022 Patient encounter procedure Hector Erasto Limon MD Work Phone: [place] Start: 11-12-2022 Radiation Oncology Note Hector Limon MD Work [...] Treatment Call) Start: 10-22-2022 Telephone encounter Denita ruhsing RN Work Phone: Hematology/Oncology Comment on above: Care Coordination (N utrition Consult) Start: 10-21-2022 End: 10-21-2022 Subsequent hospital visit by physician Hector Limon MD Work Phone: Radiology [facility] Start: 10-21-2022 End: 10-21-2022 ambulatory Chair Dee Mendez Work Phone: Hematology/Oncology Comment on above: Malignant neoplasm o f upper lobe of left lung (HCC) (Primary Dx) 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 Facility: Start: 10-10-2022 End: 10-10-2022 Subsequent hospital visit by physician Arrival Time Radiology Work Phone: Radiology [facility] Comment on above: Lung nodules [R91.8] Start: 09-23-2022 End: 09-23-2022 ambulatory Nina Grigsby MD Work Phone: Hematology/Oncology Comment on above: Malignant neoplasm o f upper lobe of left lung (HCC) (Primary Dx); Lung nodules; Centrilobular emphysema (HCC) Start: 09-23-2022 End: 09-23-2022 Patient encounter procedure Nina Grigsby MD Work Phone: [facility] Start: 09-20-2022 End: 09-20-2022 ambulatory [facility] Start: 09-19-2022 End: 09-20-[address] JONATHAN CHANEY Facility: Start: 09-18-2022 End: 09-18-2022 ambulatory [facility] Start: 09-17-2022 End: 09-17-2022 Subsequent hospital visit by physician Arrival Time Radiology Work Phone: Radiology [facility] Comment on above: Malignant neoplasm o f upper lobe of left lung (HCC) [C34.12] Start: 09-11-2022 Telephone encounter Denita rushing RN [...] Start: 06-25-2022 End: 06-25-2022 ambulatory Patricia Miller APRN.TYPEWRITER TESTER Work Phone: Hematology/Oncology Comment on above: Malignant neoplasm o f upper lobe of left lung (HCC) (Primary Dx); Anemia due to antineoplastic chemotherapy Start: 06-25-2022 End: 06-25-2022 Patient encounter procedure Patricia Miller APRN.TYPEWRITER TESTER Work Phone: [facility] Comment on above: Thyroid cancer (HCC) (Primary Dx) Start: 06-14-2022 End: 06-14-2022 Subsequent hospital visit by physician Arrival Time Radiology Work Phone: Radiology [facility] Comment on above: Malignant neoplasm o f unspecified part of unspecified bronchus or lung (HCC) [C34.90] Start: 06-11-2022 End: 06-11-2022 Subsequent hospital visit by physician General Christina Mendez Mc Work Phone: Radiology Comment on above: Malignant neoplasm o f unspecified part of unspecified bronchus or lung (HCC) [C34.90] Start: 06-11-2022 End: 06-11-2022 Patient encounter procedure [...] encounter procedure Hector Limon MD Work Phone: [place] Start: 05-01-2022 Radiation Oncology Note G Vik [...] Start: 03-19-2022 End: 03-19-2022 ambulatory Patricia Miller APRN.TYPEWRITER TESTER Work Phone: Hematology/Oncology Comment on above: Malignant neoplasm o f upper lobe of left lung (HCC) (Primary Dx); Anemia due to antineoplastic chemotherapy; Skin infection; Rash Start: 03-19-2022 End: 03-19-2022 Patient encounter procedure Patricia Miller APRN.TYPEWRITER TESTER Work Phone: [facility] Start: 03-14-2022 End: 03-14-2022 Patient encounter procedure Hector Limon MD Work Phone: [facility] Comment on above: Malignant neoplasm o f upper lobe of left lung (HCC) (Primary Dx) Start: 03-14-2022 Radiation Oncology Note Hector Limon MD Work Phone: Radiation Oncology Comment on above: Simulation Note Treatment Planning Start: 03-14-2022 End: 03-14-2022 Subsequent hospital visit by physician Hector Limon MD Work Phone: Radiology [facility] Start: 02-27-2022 End: 02-27-2022 Departed Referred AMRITA Swann Work Phone: [facility] [place] Start: 02-26-2022 Telephone encounter Denita rushing RN Work Phone: Hematology/Oncology Comment on above: Care Coordination (R shankar) Start: 02-22-2022 Refill Verito Whelan MD Work Phone: Pulmonary Medicine Comment on above: Refill Request Start: 02-20-2022 End: 02-20-2022 ambulatory Patricia Miller APRN.TYPEWRITER TESTER Work Phone: Hematology/Oncology Comment on above: Malignant neoplasm o f upper lobe of left lung (HCC) (Primary Dx); Anemia due to antineoplastic chemotherapy; Acute kidney injury (HCC); Skin infection Start: 02-20-2022 End: 02-20-2022 Patient encounter procedure Patricia Miller APRN.CNP Work Phone: [facility] Start: 02-11-2022 Telephone encounter Denita rushing RN Work Phone: Hematology/Oncology Comment on above: Care Coordination (R shankar) Start: 02-08-2022 Patient encounter procedure [facility] Provider [facility] Department Start: 02-08-2022 End: 02-08-[address] PATRICIA MILLER Facility: Start: 02-07-2022 End: 02-08-[address] PATRICIA MILLER Facility:[facility] Start: 02-07-2022 End: 02-07-2022 ambulatory Patricia Miller APRN.TYPEWRITER TESTER Work Phone: Hematology/Oncology Comment on above: Malignant neoplasm o f upper lobe of left lung (HCC) (Primary Dx); Anemia due to antineoplastic chemotherapy; Acute kidney injury (HCC); Skin infection Start: 02-07-2022 End: 02-07-2022 Patient encounter procedure Patricia Miller APRN.TYPEWRITER TESTER Work Phone: [place] Start: 02-07-2022 Telephone encounter Patricia davidson APRN.TYPEWRITER TESTER Work Phone: [facility] Comment on above: Transfusion Start: 01-30-2022 End: 01-30-2022 Patient encounter procedure Hector Limon MD Work Phone: Radiation Oncology Comment on above: Malignant neoplasm o f upper lobe of left lung (HCC) (Primary Dx) Start: 01-30-2022 ambulatory Merissa Fam RN Hematol ogy/Oncology Comment on above: Patient Education Start: 01-30-2022 Telephone encounter Patricia davidson APRN.TYPEWRITER TESTER Work Phone: Hematology/Oncology Comment on above: Lab Orders Start: 01-29-2022 End: 01-29-2022 ambulatory Pulm [facility]ct Lab Main 11 Other Phone: Pulmonary Medicine Comment on above: Spirometry Start: 01-29-2022 End: 01-29-2022 Patient encounter procedure Pulm Fct Lab Main 11 Other Phone: [facility] Comment on above: Chronic obstructive [...] JOSE Start: 11-30-2021 Telephone encounter Patricia davidson APRN.TYPEWRITER TESTER Work Phone: Cancer [facility] Comment on above: Future Appointment Lab Orders Start: 11-30-2021 End: 11-30-2021 ambulatory Patricia Miller APRN.TYPEWRITER TESTER Work Phone: Hematology/Oncology Comment on above: Malignant neoplasm o f upper lobe of left lung (HCC) (Primary Dx); Acute kidney injury (HCC) Malignant neoplasm o f upper lobe of left lung (HCC) (Primary Dx) Start: 11-30-2021 End: 11-30-2021 Patient encounter procedure Patricia Miller APRN.CNP Work Phone: [facility] Start: 11-29-2021 Telephone encounter [...] Start: 11-19-2021 End: 11-19-2021 ambulatory Chair [facility] Work Phone: Hematology/Oncology Comment on above: Malignant neoplasm o f upper lobe of left lung (HCC) (Primary Dx); Acute kidney injury (HCC) Start: 11-16-2021 End: 11-18-[address] YUNIOR DOMINGUEZ Facility: Start: 11-16-2021 Telephone encounter Denita rushing RN Work Phone: Hematology/Oncology Comment on above: Care Coordination (B MP Results) Care Coordination (H ypertension) Start: 11-16-2021 End: 11-16-2021 ambulatory Chair [facility] Work Phone: Hematology/Oncology Comment on above: Acute kidney injury (HCC) (Primary Dx); Malignant neoplasm of upper lobe of left lung (HCC) Start: 11-15-2021 End: 11-15-2021 ambulatory Chair [facility] Work Phone: Hematology/Oncology Comment on above: Malignant neoplasm o f upper lobe of left lung (HCC) (Primary Dx) Start: 11-14-2021 Telephone encounter Denita rushing RN Work Phone: Hematology/Oncology Comment on above: Care Coordination (L ab Results) Start: 11-13-2021 End: 11-13-2021 ambulatory Chair [facility] Work Phone: Hematology/Oncology Comment on above: Malignant neoplasm o f upper lobe of left lung (HCC) (Primary Dx) Start: 11-12-2021 End: 11-12-2021 ambulatory Chair [facility] Work Phone: Hematology/Oncology Comment on above: Malignant neoplasm o f upper lobe of left lung (HCC) (Primary Dx) Start: 11-12-2021 Telephone encounter Denita rushing RN Work Phone: Hematology/Oncology Comment on above: Care Coordination (L ab ) Start: 11-09-2021 Telephone encounter Denita rushing RN Work Phone: Hematology/Oncology Comment on above: Care Coordination (C 1D1 Post Treatment Call) Start: 11-05-2021 End: 11-05-2021 ambulatory Patricia Miller APRN.TYPEWRITER TESTER Work Phone: Hematology/Oncology Comment on above: Malignant neoplasm o f upper lobe of left lung (HCC) (Primary Dx) Start: 11-05-2021 End: 11-05-2021 Patient encounter procedure Patricia Miller APRN.TYPEWRITER TESTER Work Phone: [facility] Start: 10-31-2021 Patient encounter procedure [facility] Provider [facility] Department Start: 10-31-2021 End: 10-31-2021 Subsequent hospital visit by physician Jenelle [facility] Adwoa (I-Stat/1.5t) Radiology Comment on above: Malignant neoplasm o f upper lobe of left lung (HCC) [C34.12] Start: 10-30-2021 Telephone encounter Denita rushing RN Work Phone: Hematology/Oncology Comment on above: Care Coordination (R esearch Trial) Lab Orders Start: 10-29-2021 ambulatory Katlin Omer [facility] Work Phone: Hematology/Oncology Comment on above: First Time Treatment Education First Time Treatment Education (Pemetrexed, Cisplatin) Start: 10-29-2021 Telephone encounter Denita rushing RN Work Phone: Hematology/Oncology Comment on above: Care Coordination (F olic Acid) Start: 10-29-2021 End: 10-29-2021 Nursing evaluation of patient and report Michoacano Chang Work Phone: Hematology/Oncology Comment on above: [...] procedure Renetta Ponce MD Work Phone: [facility] Start: 10-11-2021 End: 10-11-2021 Patient encounter procedure Aracelis Carrillo APRN.TYPEWRITER TESTER Work Phone: Thoracic Clinic Comment on above: [...] End: 02-24-2019 Patient encounter procedure PROVIDER UNKNOWN Facility:[facility] Procedures Date Procedure Procedure Detail Performing Clinician Start: 03-19-2024 CT of head without contrast Start: 03-19-2024 Plain chest X-ray Start: 03-09-[address] atten uation skull base mid-thigh Yusef M Jessica CROWE Work Phone: Start: 03-09-2024 Gluc bld gluc [...] material Nina Grigsby MD Work Phone: Start: 09-15-[address] atten uation skull base mid-thigh Nina Grigsby MD Work Phone: Start: 09-15-2023 Gluc bld gluc mntr d ev cleared fda spec home use [facility] Provider Start: 05-12-[address] atten uation skull base mid-thigh Nina Grigsby MD Work Phone: Start: 05-12-2023 Gluc bld gluc mntr d ev cleared fda spec home use [facility] Provider Start: 04-01-2023 Radiologic exam ches t 2 views Patricia Miller CONCERT MANAGER.TYPEWRITER TESTER Work Phone: Start: 01-17-[address] atten uation skull base mid-thigh Patricia Miller CONCERT MANAGER.TYPEWRITER TESTER Work Phone: Start: 01-17-2023 Gluc bld gluc mntr d ev cleared fda spec home use [facility] Provider Start: 01-03-2023 CT angiography of thorax MD Christina Azul Work Phone: Start: 01-03-2023 Plain chest X-ray MD Nawaf Azul Work Phone: Start: 11-11-2022 HEPATIC FUNCTION PNL Br burton Grigsby MD Work Phone: Start: 11-11-2022 Lactate dehydrogenase ldh Nina Grigsby MD Work Phone: Start: 10-10-[address] atten uation skull base mid-thigh Nina Grigsby MD Work Phone: Start: 10-10-2022 Gluc bld gluc mntr d ev cleared fda spec home use [facility] Provider Start: 09-17-2022 Ct abdomen & pelvis w/contrast material Nina Grigsby MD Work Phone: Start: 09-17-2022 Ct thorax w/contrast material Nina Grigsby MD Work Phone: Start: 06-14-2022 Ct thorax w/contrast material G Erasto Limon MD Work Phone: Start: 06-11-2022 Radiologic exam ches t 2 views Hector Erasto Limon MD Work Phone: Start: 03-19-2022 Adult depression scr eening assessment Patricia Miller CONCERT MANAGER.TYPEWRITER TESTER Work Phone: Start: 01-29-2022 Brncdilat rspse spmt ry pre&post-brncdilat admn Verito Whealn MD Work Phone: Start: 01-29-2022 Radiologic exam ches t 2 views Aracelis Carrillo CONCERT MANAGER.TYPEWRITER TESTER Work Phone: Start: 12-11-2021 Adult depression scr eening assessment Verito Whelan MD Work Phone: Start: 12-07-2021 PSA screening LOVE MARTINEZ Comment on above: Performed By: #### P SAD #### [facility] [address] [place] [address] Dr. Usama Hobbs Start: 11-21-2021 Basic metabolic pane l calcium total Yusefarabella BARRY-C Work Phone: Start: 11-19-2021 Basic metabolic pane l calcium total Yusef Pandya PA-C Work Phone: Start: 11-16-2021 Basic metabolic pane l calcium total Yusef M Jessica CROWE Work Phone: Start: 10-31-2021 Mri brain brain stem w/o w/contrast material Renetta Ponce MD Work Phone: Start: 10-11-2021 Radiologic exam ches t 2 views Marianne Fields MD Work Phone: Start: 05-28-[address] attenuation whole body Marianne Fields MD Work Phone: Aerobic microbial culture ASHA Swann Work Phone: Plan of Treatment Date Care Activity Detail Author Start: 10-13-2030 Urine microalbumin profile [facility] Start: 03-18-2027 Diabetes Screening Diabetes Screenin g [facility] Start: 02-02-2027 Diabetes Screening Diabetes Screenin g [facility] Start: 12-22-2026 Diabetes Screening Diabetes Screenin [facility] Start: 12-07-2026 PROSTATE CANCER SCREENING DISCUSSION PROSTATE CANCER SCREENING DISCUSSION [facility] Start: 12-07-2026 Prostate specific antigen measurement Prostate Cancer Screening Discussion [facility] Start: 11-24-2026 Diabetes Screening [facility] Start: 11-03-2026 Diabetes Screening Diabetes Screenin g [facility] Start: 10-19-2026 Diabetes Screening Diabetes Screenin g [facility] Start: 09-21-2026 Diabetes Screening Diabetes Screenin g [facility] Start: 08-25-2026 Diabetes Screening Diabetes Screenin g [facility] Start: 06-30-2026 Diabetes Screening Diabetes Screenin g [facility] Start: 06-02-2026 Diabetes Screening Diabetes Screenin g [facility] Start: 05-13-2026 Diabetes Screening Diabetes Screenin g [facility] Start: 04-22-2026 Diabetes Screening Diabetes Screenin g [facility] Start: 04-01-2026 Diabetes Screening Diabetes Screenin g [facility] Start: 03-11-2026 DIABETES SCREEN DIABETES SCREEN [facility] Start: 02-18-2026 DIABETES SCREEN DIABETES SCREEN [facility] Start: 01-28-2026 DIABETES SCREEN DIABETES SCREEN [facility] Start: 01-07-2026 DIABETES SCREEN DIABETES SCREEN [facility] Start: 12-27-2025 DIABETES SCREEN DIABETES SCREEN [facility] Start: 12-17-2025 DIABETES SCREEN DIABETES SCREEN [facility] Start: 11-25-2025 DIABETES SCREEN DIABETES SCREEN [facility] Start: 11-18-2025 DIABETES SCREEN DIABETES SCREEN [facility] Start: 11-11-2025 DIABETES SCREEN DIABETES SCREEN [facility] Start: 10-31-2025 DIABETES SCREEN DIABETES SCREEN [facility] Start: 10-21-2025 DIABETES SCREEN DIABETES SCREEN [facility] Start: 09-23-2025 DIABETES SCREEN DIABETES SCREEN [facility] Start: 08-20-2025 DIABETES SCREEN DIABETES SCREEN [facility] Start: 06-25-2025 DIABETES SCREEN DIABETES SCREEN [facility] Start: 04-30-2025 DIABETES SCREEN DIABETES SCREEN [facility] Start: 03-19-2025 DIABETES SCREEN DIABETES SCREEN [facility] Start: 03-15-2025 BP Controlled (<130/80) BP Controlle d (<130/80) [facility] Start: 02-20-2025 DIABETES SCREEN DIABETES SCREEN [facility] Start: 02-07-2025 DIABETES SCREEN DIABETES SCREEN [facility] Start: 02-02-2025 BP Controlled (<130/80) BP Controlle d (<130/80) [facility] Start: 01-22-2025 DIABETES SCREEN DIABETES SCREEN [facility] Start: 01-14-2025 DIABETES SCREEN DIABETES SCREEN [facility] Start: 01-03-2025 DIABETES SCREEN DIABETES SCREEN [facility] Start: 12-24-2024 DIABETES SCREEN DIABETES SCREEN [facility] Start: 12-11-2024 DIABETES SCREEN DIABETES SCREEN [facility] Start: 12-03-2024 DIABETES SCREEN DIABETES SCREEN [facility] Start: 11-30-2024 DIABETES SCREEN DIABETES SCREEN [facility] Start: 11-26-2024 DIABETES SCREEN DIABETES SCREEN [facility] Start: 11-21-2024 DIABETES SCREEN DIABETES SCREEN [facility] Start: 11-19-2024 DIABETES SCREEN DIABETES SCREEN [facility] Start: 11-16-2024 DIABETES SCREEN DIABETES SCREEN [facility] Start: 11-14-2024 DIABETES SCREEN DIABETES SCREEN [facility] Start: 11-12-2024 DIABETES SCREEN DIABETES SCREEN [facility] Start: 11-05-2024 DIABETES SCREEN DIABETES SCREEN [facility] Start: 10-04-2024 DIABETES SCREEN DIABETES SCREEN [facility] Start: 06-30-2024 BP Controlled (<130/80) BP Controlle d (<130/80) [facility] Start: 05-05-2024 End: 05-05-2024 Patient encounter procedure Pulmonary Medicine Comment on above: Centrilobular emphys luke (HCC) [J43.2] Start: 04-20-2024 ambulatory Ambulatory Facility:[facility] Start: 04-14-2024 End: 04-14-2024 Patient encounter procedure 04/14/2024 10:30 AM EDT Office Visit Palliative Medicine [address] [facility] [place] [address] Estella Fish, CONCERT MANAGER.TYPEWRITER TESTER [address] [place] [address] 4 week follow up-in person Palliative Medicine Comment on above: 4 week follow up-in person Start: 04-12-2024 ambulatory Ambulatory Facility:[facility] Start: 04-08-2024 End: 04-08-2024 Follow-up encounter 04/08/2024 11:30 AM EDT Visit (SP) Office Hematology/Oncology [address] [place] [address] Nina Grigsby MD [address] [place] [address] 6 week follow up Hematology/Oncology Comment on above: 6 week follow up Start: 04-08-2024 End: 04-08-2024 Patient encounter procedure 04/08/2024 11:15 AM EDT Office Visit [facility] [address] [place] [address] PRINT SCHEDULE [facility] Comment on above: PRINT SCHEDULE Start: 03-23-2024 Magnetic resonance angiography of head without contrast MR angio MR brain w/o [facility] Start: 03-21-2024 Covid-19 Vaccine ( season) Covid-19 Vaccine ( season) [facility] Start: 03-21-2024 Covid-19 Vaccine ( season) Covid-19 Vaccine ( season) [facility] Start: 03-21-2024 Influenza vaccination [facility] Start: 03-20-2024 [facility] Start: 03-19-2024 Referral to neurologist [facility] Start: 03-19-2024 Hospital admission [facility] Start: 03-18-2024 Plain chest X-ray XR chest 2V* [facility] Start: 03-18-2024 [facility] Start: 03-18-2024 End: 03-18-2024 Follow-up encounter 03/18/2024 1:30 PM EDT Visit (SP) Office Hematology/Oncology [address] [place] [address] Nina Grigsby MD [address] [place] [address] 6 week follow up Hematology/Oncology Comment on above: 6 week follow up Start: 03-18-2024 End: 03-18-2024 Patient encounter procedure [facility] Comment on above: 6 week follow up PRINT SCHEDULE Start: 03-17-2024 End: 03-17-2024 Patient encounter procedure 03/17/2024 10:30 AM EDT Office Visit Palliative Medicine [address] [place] [address] Estella Fish, CONCERT MANAGER.TYPEWRITER TESTER [address] [place] [address] 3 month follow up Palliative Medicine Comment on above: 3 month follow up Start: 03-15-2024 End: 03-15-2024 Patient encounter procedure 03/15/2024 1:00 PM EDT Office Visit Pulmonary Medicine [address] [place], [place] [id number] [place] [address] [facility] [place] [address] *jose called and requested appointment Pulmonary Medicine Comment on above: *jose called and requested appointment Start: 03-09-2024 End: 03-09-2024 Patient encounter procedure 03/09/2024 9:00 AM EDT Appointment Radiology Pet CT [address] [place] [address] Comment on above: PET Start: 02-27-2024 End: 02-27-2024 Patient encounter procedure 02/27/2024 10:30 AM EDT Office Visit Palliative Medicine [address] [place] [address] Estella Fish, OZZIE.TYPEWRITER TESTER [address] [place] [address] 3 month follow up Palliative Medicine Comment on above: 3 month follow up Start: 02-07-2024 Plain chest X-ray XR chest 2V* [facility] Start: 02-07-2024 XR Chest 2 Views [facility] Start: 02-03-2024 End: 05-04-2024 CBC W Auto Differential panel - Blood COMPLETE BLOOD COUNT AND DIFFERENTIAL Lab Routine 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 Expected: 02/03/2024, Expires: 05/04/2024 [facility] Comment on above: Expected: 02/03/2024 , Expires: 05/04/2024 Start: 02-03-2024 End: 05-04-2024 Comprehensive metabolic 2000 panel - Serum or Plasma COMPREHENSIVE METABOLIC PANEL Lab Routine 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 Expected: 02/03/2024, Expires: 05/04/2024 [facility] Work Phone: Comment on above: Expected: 02/03/2024 , Expires: 05/04/2024 Start: 02-03-2024 End: 05-04-2024 Thyrotropin [Units/volume] in Serum or Plasma THYROID STIMULATING HORMONE Lab Routine 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 Expected: 02/03/2024, Expires: 05/04/2024 [facility] Comment on above: Expected: 02/03/2024 , Expires: 05/04/2024 Start: 02-03-2024 End: 02-03-2024 Follow-up encounter 02/03/2024 11:30 AM EDT Visit (SP) Office Hematology/Oncology [facility] [place] [address] Yusef Pandya PA-C [address] [facility] [address] 6 week follow up Hematology/Oncology Comment on above: 6 week follow up Start: 02-03-2024 End: 02-03-2024 Patient encounter procedure 02/03/2024 11:15 AM EDT Office Visit [facility] [place] [address] 6 week follow up [facility] Comment on above: 6 week follow up Start: 01-29-2024 BP CONTROLLED (<130/80) BP CONTROLLE D (<130/80) [facility] Start: 01-27-2024 End: 04-27-2024 CBC W Auto Differential panel - Blood COMPLETE BLOOD COUNT AND DIFFERENTIAL Lab Routine 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) Expected: 01/27/2024, Expires: 04/27/2024 [facility] Comment on above: Expected: 01/27/2024 , Expires: 04/27/2024 Start: 01-27-2024 End: 04-27-2024 Comprehensive metabolic 2000 panel - Serum or Plasma COMPREHENSIVE METABOLIC PANEL Lab Routine 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) Expected: 01/27/2024, Expires: 04/27/2024 [facility] Work Phone: Comment on above: Expected: 01/27/2024 , Expires: 04/27/2024 Start: 12-30-2023 End: 12-30-2023 ambulatory 12/30/2023 11:30 AM EDT Visit (SP) Office Hematology/Oncology [facility] [address] [place] [address] Yunior Thacker, LMT [address] [place] [address] Massage pt in the lobby Hematology/Oncology Comment on above: Massage pt in the lobby Start: 12-24-2023 End: 12-24-2023 Patient encounter procedure Radiation Oncology Comment on above: Chest wall Chest wall- do compl etion tasks for both areas Start: 12-23-2023 End: 12-23-2023 Follow-up encounter 12/23/2023 2:45 PM EDT Visit (SP) Office Hematology/Oncology [address] [place] [place] [address] Nina Grigsby MD [address] [place] [address] 3 week follow up after Dr. Fay garces and XRT Hematology/Oncology Comment on above: 3 week follow up aft er Dr. Fay garces and XRT Start: 12-23-2023 End: 12-23-2023 Patient encounter procedure [facility] Comment on above: 3 week follow up aft er Dr. Limon consult and XRT Chest wall- grigsby\T \ labs 2:30 Start: 12-23-2023 End: 12-23-2023 Patient encounter procedure 12/23/2023 10:15 AM EDT Appointment Radiation Oncology [address] [facility] [place] [address] Chest wall Radiation Oncology Comment on above: Chest wall Start: 12-22-2023 End: 12-22-2023 Patient encounter procedure Radiation Oncology Comment on above: Chest wall Location: [facility] Start: 12-19-2023 End: 12-19-2023 Patient encounter procedure 12/19/2023 10:45 AM EDT Appointment Radiation Oncology [address] [place] [address] Chest wall Radiation Oncology Comment on above: Chest wall Start: 12-18-2023 BP CONTROLLED (<130/80) BP CONTROLLE D (<130/80) [facility] Start: 12-18-2023 End: 12-18-2023 Patient encounter procedure 12/18/2023 2:00 PM EDT Appointment Radiation Oncology [address] [place] [address] Chest wall Radiation Oncology Comment on above: Chest wall Start: 12-17-2023 End: 12-17-2023 Patient encounter procedure 12/17/2023 12:15 PM EDT Appointment Radiation Oncology [address] [place] [address] Neck and Chest wall Radiation Oncology Comment [...] BP CONTROLLED (<130/80) BP CONTROLLE D (<130/80) [facility] Start: 11-25-2023 End: 02-24-2024 CBC W Auto Differential panel - Blood COMPLETE BLOOD COUNT AND DIFFERENTIAL Lab Routine Malignant neoplasm of upper lobe of left lung (HCC) Expected: 11/25/2023 (Approximate), Expires: 02/24/2024 [facility] Work Phone: Comment on above: Expected: 11/25/2023 (Approximate), Expires: 02/24/2024 Start: 11-25-2023 End: 02-24-2024 Comprehensive metabolic 2000 panel - Serum or Plasma COMPREHENSIVE METABOLIC PANEL Lab Routine Malignant neoplasm of upper lobe of left lung (HCC) Expected: 11/25/2023 (Approximate), Expires: 02/24/2024 [facility] Comment on above: Expected: 11/25/2023 (Approximate), Expires: 02/24/2024 Start: 11-25-2023 End: 02-24-2024 Thyrotropin [Units/volume] in Serum or Plasma THYROID STIMULATING HORMONE Lab Routine Malignant neoplasm of upper lobe of left lung (HCC) Expected: 11/25/2023 (Approximate), Expires: 02/24/2024 [facility] Comment on above: Expected: 11/25/2023 (Approximate), Expires: 02/24/2024 Start: 11-25-2023 End: 11-25-2023 Patient encounter procedure 11/25/2023 10:45 AM EDT Appointment Radiology Pet CT [address] [place] [address] Comment on above: PET Start: 11-21-2023 End: 11-21-2023 Patient encounter procedure 11/21/2023 10:00 AM EDT Office Visit Palliative Medicine [address] [place] [address] Estella Fish, CONCERT MANAGER.TYPEWRITER TESTER [address] [place] [address] 3 month follow up Palliative Medicine Comment on above: 3 month follow up Start: 11-19-2023 BP CONTROLLED (<130/80) BP CONTROLLE D (<130/80) [facility] Start: 11-01-2023 BP CONTROLLED (<130/80) BP CONTROLLE D (<130/80) [facility] Start: 10-29-2023 BP CONTROLLED (<130/80) BP CONTROLLE D (<130/80) [facility] Start: 10-22-2023 BP CONTROLLED (<130/80) BP CONTROLLE D (<130/80) [facility] Start: 09-24-2023 BP CONTROLLED (<130/80) BP CONTROLLE D (<130/80) [facility] Start: 08-25-2023 End: 11-24-2023 T4/FTI/T4U [facility] Work Phone: Comment on above: Expected: 08/25/2023 , Expires: 11/24/2023 Start: 08-25-2023 End: 11-24-2023 Thyrotropin [Units/volume] in Serum or Plasma [facility] Work Phone: Comment on above: Expected: 08/25/2023 , Expires: 11/24/2023 Start: 08-20-2023 BP CONTROLLED (<130/80) BP CONTROLLE D (<130/80) [facility] Start: 07-21-2023 Advance Directive Discussion Advance Directive Discussion [facility] Start: 07-21-2023 Behavioral Health Screening Behavioral Health Screening [facility] Start: 07-21-2023 Depression Assessment Depression Ass essment [facility] Start: 07-01-2023 End: 09-30-2023 CBC W Auto Differential panel - Blood CBC + DIFF Lab Routine Malignant neoplasm of upper lobe of left lung (HCC) Centrilobular emphysema (HCC) CAD in [place] artery PVD (peripheral vascular disease) (HCC) Cancer related pain Tonsillar mass Abnormal LFTs Anxiety Hypothyroidism due to medication Expected: 07/01/2023, Expires: 09/30/2023 [facility] Work Phone: Comment on above: Expected: 07/01/2023 , Expires: 09/30/2023 Start: 07-01-2023 End: 09-30-2023 Comprehensive metabolic 2000 panel - Serum or Plasma COMP METABOLIC PANEL Lab Routine Malignant neoplasm of upper lobe of left lung (HCC) Centrilobular emphysema (HCC) CAD in [place] artery PVD (peripheral vascular disease) (HCC) Cancer related pain Tonsillar mass Abnormal LFTs Anxiety Hypothyroidism due to medication Expected: 07/01/2023, Expires: 09/30/2023 [facility] Work Phone: Comment on above: Expected: 07/01/2023 , Expires: 09/30/2023 Start: 07-01-2023 End: 09-30-2023 Thyrotropin [Units/volume] in Serum or Plasma TSH BLD Lab Routine Malignant neoplasm of upper lobe of left lung (HCC) Centrilobular emphysema (HCC) CAD in [place] artery PVD (peripheral vascular disease) (HCC) Cancer related pain Tonsillar mass Abnormal LFTs Anxiety Hypothyroidism due to medication Expected: 07/01/2023, Expires: 09/30/2023 [facility] Work Phone: Comment on above: Expected: 07/01/2023 , Expires: 09/30/2023 Start: 06-13-2023 End: 09-12-2023 TOX SCREEN ROUT UR TOX SCREEN ROUT UR Lab Routine Opioid contract exists Expected: 06/13/2023, Expires: 09/12/2023 [facility] Work Phone: Comment on above: Expected: 06/13/2023 , Expires: 09/12/2023 Start: 06-11-2023 BP CONTROLLED (<130/80) BP CONTROLLE D (<130/80) [facility] Start: 06-02-2023 End: 09-01-2023 CBC W Auto Differential panel - Blood CBC + DIFF Lab Routine Malignant neoplasm of upper lobe of left lung (HCC) Expected: 06/02/2023, Expires: 09/01/2023 [facility] Work Phone: Comment on above: Expected: 06/02/2023 , Expires: 09/01/2023 Start: 04-22-2023 End: 06-22-2023 CBC W Auto Differential panel - Blood CBC + DIFF Lab Routine 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) Cancer related pain Abnormal LFTs Anxiety Centrilobular emphysema (HCC) PVD (peripheral vascular disease) (HCC) Anemia due to antineoplastic chemotherapy Skin rash Expected: 04/22/2023, Expires: 06/22/2023 [facility] Work Phone: Comment on above: Expected: 04/22/2023 , Expires: 06/22/2023 Start: 04-22-2023 End: 06-22-2023 Comprehensive metabolic 2000 panel - Serum or Plasma COMP METABOLIC PANEL Lab Routine 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) Cancer related pain Abnormal LFTs Anxiety Centrilobular emphysema (HCC) PVD (peripheral vascular disease) (HCC) Anemia due to antineoplastic chemotherapy Skin rash Expected: 04/22/2023, Expires: 06/22/2023 [facility] Work Phone: Comment on above: Expected: 04/22/2023 , Expires: 06/22/2023 Start: 04-22-2023 End: 06-22-2023 Thyrotropin [Units/volume] in Serum or Plasma TSH BLD Lab Routine 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) Cancer related pain Abnormal LFTs Anxiety Centrilobular emphysema (HCC) PVD (peripheral vascular disease) (HCC) Anemia due to antineoplastic chemotherapy Skin rash Expected: 04/22/2023, Expires: 06/22/2023 [facility] Work Phone: Comment on above: Expected: 04/22/2023 , Expires: 06/22/2023 Start: 03-26-2023 BP CONTROLLED (<130/80) BP CONTROLLE D (<130/80) [facility] Start: 03-21-2023 Covid-19 Vaccine () Covid-19 Vaccine () [facility] Start: 03-21-2023 Influenza vaccination [facility] Start: 03-19-2023 Adult depression screening assessment DEPRESSION SCREENING [facility] Start: 03-19-2023 BP CONTROLLED (<130/80) BP CONTROLLE D (<130/80) [facility] Start: 03-11-2023 End: 05-11-2023 T4/[id number]/[id number] [facility] Work Phone: Comment on above: Expected: 03/11/2023 , Expires: 05/11/2023 Start: 03-11-2023 End: 05-11-2023 Thyrotropin [Units/volume] in Serum or Plasma [facility] Work Phone: Comment on above: Expected: 03/11/2023 , Expires: 05/11/2023 Start: 02-20-2023 BP CONTROLLED (<130/80) BP CONTROLLE D (<130/80) [facility] Start: 02-08-2023 COLORECTAL CANCER SCREENING COLORECTAL CANCER SCREENING [facility] Start: 02-08-2023 FECAL OCCULT BLOOD FECAL OCCULT BLOO D [facility] Start: 02-08-2023 Screening for malign ant neoplasm of colon [facility] Start: 02-07-2023 BP CONTROLLED (<130/80) BP CONTROLLE D (<130/80) [facility] Start: 01-30-2023 BP CONTROLLED (<130/80) BP CONTROLLE D (<130/80) [facility] Start: 01-22-2023 BP CONTROLLED (<130/80) BP CONTROLLE D (<130/80) [facility] Start: 01-14-2023 BP CONTROLLED (<130/80) BP CONTROLLE D (<130/80) [facility] Start: 01-07-2023 End: 03-09-2023 Thyrotropin [Units/volume] in Serum or Plasma [facility] Work Phone: Comment on above: Expected: 01/07/2023 , Expires: 03/09/2023 Start: 12-27-2022 End: 02-26-2023 Comprehensive metabolic 2000 panel - Serum or Plasma COMP METABOLIC PANEL Lab Routine 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) Abnormal LFTs Expected: 12/27/2022 (Approximate), Expires: 02/26/2023 [facility] Work Phone: Comment on above: Expected: 12/27/2022 (Approximate), Expires: 02/26/2023 Start: 12-24-2022 BP CONTROLLED (<130/80) BP CONTROLLE D (<130/80) [facility] Start: 12-16-2022 End: 02-15-2023 CBC W Auto Differential panel - Blood CBC + DIFF Lab Routine Malignant neoplasm of upper lobe of left lung (HCC) Centrilobular emphysema (HCC) Abnormal LFTs Cancer related pain PVD (peripheral vascular disease) (HCC) Malaise and fatigue Expected: 12/16/2022, Expires: 02/15/2023 [facility] Work Phone: Comment on above: Expected: 12/16/2022 , Expires: 02/15/2023 Start: 12-16-2022 End: 02-15-2023 Comprehensive metabolic 2000 panel - Serum or Plasma COMP METABOLIC PANEL Lab Routine Malignant neoplasm of upper lobe of left lung (HCC) Centrilobular emphysema (HCC) Abnormal LFTs Cancer related pain PVD (peripheral vascular disease) (HCC) Malaise and fatigue Expected: 12/16/2022, Expires: 02/15/2023 [facility] Work Phone: Comment on above: Expected: 12/16/2022 , Expires: 02/15/2023 Start: 12-16-2022 End: 02-15-2023 Thyrotropin [Units/volume] in Serum or Plasma TSH BLD Lab Routine Malignant neoplasm of upper lobe of left lung (HCC) Centrilobular emphysema (HCC) Abnormal LFTs Cancer related pain PVD (peripheral vascular disease) (HCC) Malaise and fatigue Expected: 12/16/2022, Expires: 02/15/2023 [facility] Work Phone: Comment on above: Expected: 12/16/2022 , Expires: 02/15/2023 Start: 12-11-2022 Adult depression screening assessment DEPRESSION SCREENING [facility] Start: 12-11-2022 BP CONTROLLED (<130/80) BP CONTROLLE D (<130/80) [facility] Start: 12-09-2022 End: 02-08-2023 CBC W Auto Differential panel - Blood CBC + DIFF Lab Routine Malignant neoplasm of upper lobe of left lung (HCC) Centrilobular emphysema (HCC) Abnormal LFTs Cancer related pain PVD (peripheral vascular disease) (HCC) Expected: 12/09/2022, Expires: 02/08/2023 [facility] Work Phone: Comment on above: Expected: 12/09/2022 , Expires: 02/08/2023 Start: 12-09-2022 End: 02-08-2023 Comprehensive metabolic 2000 panel - Serum or Plasma COMP METABOLIC PANEL Lab Routine Malignant neoplasm of upper lobe of left lung (HCC) Centrilobular emphysema (HCC) Abnormal LFTs Cancer related pain PVD (peripheral vascular disease) (HCC) Expected: 12/09/2022, Expires: 02/08/2023 [facility] Work Phone: Comment on above: Expected: 12/09/2022 , Expires: 02/08/2023 Start: 12-03-2022 BP CONTROLLED (<130/80) BP CONTROLLE D (<130/80) [facility] Start: 11-30-2022 BP CONTROLLED (<130/80) BP CONTROLLE D (<130/80) [facility] Start: 11-26-2022 BP CONTROLLED (<130/80) BP CONTROLLE D (<130/80) [facility] Start: 11-25-2022 End: 01-25-2023 CBC W Auto Differential panel - Blood CBC + DIFF Lab Routine 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) Abnormal LFTs Expected: 11/25/2022, Expires: 01/25/2023 [facility] Work Phone: Comment on above: Expected: 11/25/2022 , Expires: 01/25/2023 Start: 11-25-2022 End: 01-25-2023 Comprehensive metabolic 2000 panel - Serum or Plasma COMP METABOLIC PANEL Lab Routine 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) Abnormal LFTs Expected: 11/25/2022, Expires: 01/25/2023 [facility] Work Phone: Comment on above: Expected: 11/25/2022 , Expires: 01/25/2023 Start: 11-25-2022 End: 01-25-2023 Thyrotropin [Units/volume] in Serum or Plasma TSH BLD Lab Routine 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) Abnormal LFTs Malaise and fatigue Expected: 11/25/2022, Expires: 01/25/2023 [facility] Work Phone: Comment on above: Expected: 11/25/2022 , Expires: 01/25/2023 Start: 11-18-2022 End: 01-18-2023 CBC W Auto Differential panel - Blood CBC + DIFF Lab Routine 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) Expected: 11/18/2022, Expires: 01/18/2023 [facility] Work Phone: Comment on above: Expected: 11/18/2022 , Expires: 01/18/2023 Start: 11-18-2022 End: 01-18-2023 Comprehensive metabolic 2000 panel - Serum or Plasma COMP METABOLIC PANEL Lab Routine 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) Expected: 11/18/2022, Expires: 01/18/2023 [facility] Work Phone: Comment on above: Expected: 11/18/2022 , Expires: 01/18/2023 Start: 11-18-2022 End: 01-18-2023 Lactate dehydrogenase [Enzymatic activity/volume] in Serum or Plasma LD LACTATE DEHYDRO Lab Routine 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) Expected: 11/18/2022, Expires: 01/18/2023 [facility] Work Phone: Comment on above: Expected: 11/18/2022 , Expires: 01/18/2023 Start: 11-12-2022 BP CONTROLLED (<130/80) BP CONTROLLE D (<130/80) [facility] Start: 11-05-2022 BP CONTROLLED (<130/80) BP CONTROLLE D (<130/80) [facility] Start: 10-24-2022 BP CONTROLLED (<130/80) BP CONTROLLE D (<130/80) [facility] Start: 10-19-2022 BP CONTROLLED (<130/80) BP CONTROLLE D (<130/80) [facility] Start: 10-15-2022 End: 12-15-2022 MISC SEND OUT TST 1 MISC SEND OUT TST 1 Lab Routine Malignant neoplasm of upper lobe of left lung (HCC) Expected: 10/15/2022, Expires: 12/15/2022 [facility] Work Phone: Comment on above: Expected: 10/15/2022 , Expires: 12/15/2022 Start: 10-11-2022 BP CONTROLLED (<130/80) BP CONTROLLE D (<130/80) [facility] Start: 09-17-2022 End: 11-17-2022 CBC W Auto Differential panel - Blood CBC + DIFF Lab Routine Malignant neoplasm of upper lobe of left lung (HCC) Malaise and fatigue Expected: 09/17/2022 (Approximate), Expires: 11/17/2022 [facility] Work Phone: Comment on above: Expected: 09/17/2022 (Approximate), Expires: 11/17/2022 Start: 09-17-2022 End: 11-17-2022 Comprehensive metabolic 2000 panel - Serum or Plasma COMP METABOLIC PANEL Lab Routine Malignant neoplasm of upper lobe of left lung (HCC) Malaise and fatigue Expected: 09/17/2022 (Approximate), Expires: 11/17/2022 [facility] Work Phone: Comment on above: Expected: 09/17/2022 (Approximate), Expires: 11/17/2022 Start: 09-17-2022 End: 11-17-2022 Lactate dehydrogenase [Enzymatic activity/volume] in Serum or Plasma LD LACTATE DEHYDRO Lab Routine Malignant neoplasm of upper lobe of left lung (HCC) Malaise and fatigue Expected: 09/17/2022 (Approximate), Expires: 11/17/2022 [facility] Work Phone: Comment on above: Expected: 09/17/2022 (Approximate), Expires: 11/17/2022 Start: 09-17-2022 End: 11-17-2022 Thyrotropin [Units/volume] in Serum or Plasma TSH BLD Lab Routine Malignant neoplasm of upper lobe of left lung (HCC) Malaise and fatigue Expected: 09/17/2022 (Approximate), Expires: 11/17/2022 [facility] Work Phone: Comment on above: Expected: 09/17/2022 (Approximate), Expires: 11/17/2022 Start: 08-20-2022 End: 10-20-2022 CBC W Auto Differential panel - Blood CBC + DIFF Lab Routine Malignant neoplasm of upper lobe of left lung (HCC) Anemia due to antineoplastic chemotherapy Expected: 08/20/2022, Expires: 10/20/2022 [facility] Work Phone: Comment on above: Expected: 08/20/2022 , Expires: 10/20/2022 Start: 08-20-2022 End: 10-20-2022 Comprehensive metabolic 2000 panel - Serum or Plasma COMP METABOLIC PANEL Lab Routine Malignant neoplasm of upper lobe of left lung (HCC) Anemia due to antineoplastic chemotherapy Expected: 08/20/2022, Expires: 10/20/2022 [facility] Work Phone: Comment on above: Expected: 08/20/2022 , Expires: 10/20/2022 Start: 07-21-2022 ADVANCE DIRECTIVE DISCUSSION ADVANCE DIRECTIVE DISCUSSION [facility] Start: 07-21-2022 DEPRESSION ASSESSMENT DEPRESSION ASS ESSMENT [facility] Start: 06-25-2022 End: 08-25-2022 THYROGLOBULIN BY MASS SPECTROMETRY THYROGLOBULIN BY MASS SPECTROMETRY Lab Routine Thyroid cancer (HCC) Expected: 06/25/2022, Expires: 08/25/2022 [facility] Work Phone: Comment on above: Expected: 06/25/2022 , Expires: 08/25/2022 Start: 04-18-2022 End: 06-18-2022 CBC W Auto Differential panel - Blood CBC + DIFF Lab Routine Malignant neoplasm of upper lobe of left lung (HCC) Expected: 04/18/2022, Expires: 06/18/2022 [facility] Work Phone: Comment on above: Expected: 04/18/2022 , Expires: 06/18/2022 Start: 04-18-2022 End: 06-18-2022 Comprehensive metabolic 2000 panel - Serum or Plasma COMP METABOLIC PANEL Lab Routine Malignant neoplasm of upper lobe of left lung (HCC) Expected: 04/18/2022, Expires: 06/18/2022 [facility] Work Phone: Comment on above: Expected: 04/18/2022 , Expires: 06/18/2022 Start: 03-21-2022 Influenza vaccination [facility] Start: 02-22-2022 End: 04-24-2022 CBC W Auto Differential panel - Blood [facility] Work Phone: Comment on above: Expected: 02/22/2022 , Expires: 04/24/2022 Start: 02-22-2022 End: 04-24-2022 Comprehensive metabolic 2000 panel - Serum or Plasma [facility] Work Phone: Comment on above: Expected: 02/22/2022 , Expires: 04/24/2022 Start: 02-15-2022 End: 04-17-2022 CBC W Auto Differential panel - Blood CBC + DIFF Lab Routine Malignant neoplasm of upper lobe of left lung (HCC) Expected: 02/15/2022, Expires: 04/17/2022 [facility] Work Phone: Comment on above: Expected: 02/15/2022 , Expires: 04/17/2022 Start: 2022 ADVANCE DIRECTIVE DISCUSSION ADVANCE DIRECTIVE DISCUSSION [facility] Start: 02-07-2022 End: 04-09-2022 Iron and Iron binding capacity panel - Serum or Plasma [facility] Work Phone: Comment on above: Expected: 02/07/2022 , Expires: 04/09/2022 Start: 02-05-2022 End: 04-07-2022 CBC W Auto Differential panel - Blood CBC + DIFF Lab Routine Malignant neoplasm of upper lobe of left lung (HCC) Expected: 02/05/2022, Expires: 04/07/2022 [facility] Work Phone: Comment on above: Expected: 02/05/2022 , Expires: 04/07/2022 Start: 02-05-2022 End: 04-07-2022 Comprehensive metabolic 2000 panel - Serum or Plasma COMP METABOLIC PANEL Lab Routine Malignant neoplasm of upper lobe of left lung (HCC) Expected: 02/05/2022, Expires: 04/07/2022 [facility] Work Phone: Comment on above: Expected: 02/05/2022 , Expires: 04/07/2022 Start: 02-05-2022 End: 04-07-2022 Magnesium [Mass/volume] in Serum or Plasma MAGNESIUM BLD Lab Routine Malignant neoplasm of upper lobe of left lung (HCC) Expected: 02/05/2022, Expires: 04/07/2022 [facility] Work Phone: Comment on above: Expected: 02/05/2022 , Expires: 04/07/2022 Start: 01-22-2022 End: 03-24-2022 CBC W Auto Differential panel - Blood CBC + DIFF Lab Routine Malignant neoplasm of upper lobe of left lung (HCC) Expected: 01/22/2022, Expires: 03/24/2022 [facility] Work Phone: Comment on above: Expected: 01/22/2022 , Expires: 03/24/2022 Start: 01-22-2022 End: 03-24-2022 Comprehensive metabolic 2000 panel - Serum or Plasma COMP METABOLIC PANEL Lab Routine Malignant neoplasm of upper lobe of left lung (HCC) Expected: 01/22/2022, Expires: 03/24/2022 [facility] Work Phone: Comment on above: Expected: 01/22/2022 , Expires: 03/24/2022 Start: 01-10-2022 End: 03-12-2022 CBC W Auto Differential panel - Blood CBC + DIFF Lab Routine Malignant neoplasm of upper lobe of left lung (HCC) Expected: 01/10/2022, Expires: 03/12/2022 [facility] Work Phone: Comment on above: Expected: 01/10/2022 , Expires: 03/12/2022 Start: 01-10-2022 End: 03-12-2022 Comprehensive metabolic 2000 panel - Serum or Plasma COMP METABOLIC PANEL Lab Routine Malignant neoplasm of upper lobe of left lung (HCC) Expected: 01/10/2022, Expires: 03/12/2022 [facility] Work Phone: Comment on above: Expected: 01/10/2022 , Expires: 03/12/2022 Start: 01-10-2022 End: 03-12-2022 Magnesium [Mass/volume] in Serum or Plasma MAGNESIUM BLD Lab Routine Malignant neoplasm of upper lobe of left lung (HCC) Expected: 01/10/2022, Expires: 03/12/2022 [facility] Work Phone: Comment on above: Expected: 01/10/2022 , Expires: 03/12/2022 Start: 01-03-2022 End: 03-05-2022 CBC W Auto Differential panel - Blood CBC + DIFF Lab Routine Malignant neoplasm of upper lobe of left lung (HCC) Expected: 01/03/2022, Expires: 03/05/2022 [facility] Work Phone: Comment on above: Expected: 01/03/2022 , Expires: 03/05/2022 Start: 01-03-2022 End: 03-05-2022 Comprehensive metabolic 2000 panel - Serum or Plasma COMP METABOLIC PANEL Lab Routine Malignant neoplasm of upper lobe of left lung (HCC) Expected: 01/03/2022, Expires: 03/05/2022 [facility] Work Phone: Comment on above: Expected: 01/03/2022 , Expires: 03/05/2022 Start: 01-03-2022 End: 03-05-2022 Magnesium [Mass/volume] in Serum or Plasma MAGNESIUM BLD Lab Routine Malignant neoplasm of upper lobe of left lung (HCC) Expected: 01/03/2022, Expires: 03/05/2022 [facility] Work Phone: Comment on above: Expected: 01/03/2022 , Expires: 03/05/2022 Start: 12-10-2021 End: 02-09-2022 CBC W Auto Differential panel - Blood CBC + DIFF Lab Routine Malignant neoplasm of upper lobe of left lung (HCC) Acute kidney injury (HCC) Expected: 12/10/2021 (Approximate), Expires: 02/09/2022 [facility] Work Phone: Comment on above: Expected: 12/10/2021 (Approximate), Expires: 02/09/2022 Start: 12-10-2021 End: 02-09-2022 Comprehensive metabolic 2000 panel - Serum or Plasma COMP METABOLIC PANEL Lab Routine Malignant neoplasm of upper lobe of left lung (HCC) Acute kidney injury (HCC) Expected: 12/10/2021 (Approximate), Expires: 02/09/2022 [facility] Work Phone: Comment on above: Expected: 12/10/2021 (Approximate), Expires: 02/09/2022 Start: 12-03-2021 End: 02-02-2022 CBC W Auto Differential panel - Blood CBC + DIFF Lab Routine Malignant neoplasm of upper lobe of left lung (HCC) Expected: 12/03/2021, Expires: 02/02/2022 [facility] Work Phone: Comment on above: Expected: 12/03/2021 , Expires: 02/02/2022 Start: 12-03-2021 End: 02-02-2022 Comprehensive metabolic 2000 panel - Serum or Plasma COMP METABOLIC PANEL Lab Routine Malignant neoplasm of upper lobe of left lung (HCC) Expected: 12/03/2021, Expires: 02/02/2022 [facility] Work Phone: Comment on above: Expected: 12/03/2021 , Expires: 02/02/2022 Start: 11-30-2021 End: 01-30-2022 CBC W Auto Differential panel - Blood CBC + DIFF Lab Routine Malignant neoplasm of upper lobe of left lung (HCC) Acute kidney injury (HCC) Expected: 11/30/2021, Expires: 01/30/2022 [facility] Work Phone: Comment on above: Expected: 11/30/2021 , Expires: 01/30/2022 Start: 11-30-2021 End: 01-30-2022 Comprehensive metabolic 2000 panel - Serum or Plasma COMP METABOLIC PANEL Lab Routine Malignant neoplasm of upper lobe of left lung (HCC) Acute kidney injury (HCC) Expected: 11/30/2021, Expires: 01/30/2022 [facility] Work Phone: Comment on above: Expected: 11/30/2021 , Expires: 01/30/2022 Start: 11-19-2021 End: 01-19-2022 Basic metabolic 2000 panel - Serum or Plasma [facility] Work Phone: Comment on above: Expected: 11/19/2021 , Expires: 01/19/2022 Start: 11-14-2021 End: 01-14-2022 Basic metabolic 2000 panel - Serum or Plasma BASIC METABOLIC PNL Lab Routine Malignant neoplasm of upper lobe of left lung (HCC) Expected: 11/14/2021, Expires: 01/14/2022 [facility] Work Phone: Comment on above: Expected: 11/14/2021 , Expires: 01/14/2022 Start: 11-12-2021 End: 01-12-2022 CBC W Auto Differential panel - Blood CBC + DIFF Lab Routine Malignant neoplasm of upper lobe of left lung (HCC) Expected: 11/12/2021, Expires: 01/12/2022 [facility] Work Phone: Comment on above: Expected: 11/12/2021 , Expires: 01/12/2022 Start: 11-12-2021 End: 01-12-2022 Comprehensive metabolic 2000 panel - Serum or Plasma COMP METABOLIC PANEL Lab Routine Malignant neoplasm of upper lobe of left lung (HCC) Expected: 11/12/2021, Expires: 01/12/2022 [facility] Work Phone: Comment on above: Expected: 11/12/2021 , Expires: 01/12/2022 Start: 10-26-2021 End: 11-18-2022 Mri brain brain stem w/o w/contrast material MRI BRAIN WO/W IVCON Radiology Routine Malignant neoplasm of upper lobe of left lung (HCC) Expected: 10/26/2021, Expires: 11/18/2022 [facility] Work Phone: Comment on above: Expected: 10/26/2021 , Expires: 11/18/2022 Start: 09-11-2021 Covid-19 Vaccine (5 - Moderna series) Covid-19 Vaccine (5 - Moderna series) [facility] Start: 07-21-2021 DEPRESSION ASSESSMENT DEPRESSION ASS ESSMENT [facility] Start: 05-15-2021 COVID-19 VACCINE (3 - Booster for Moderna series) COVID-19 VACCINE (3 - Booster for Moderna series) [facility] Start: 03-21-2021 Influenza vaccination INFLUENZA (#1) [facility] Start: 02-07-2021 COVID-19 VACCINE (3 - Moderna series) COVID-19 VACCINE (3 - Moderna series) [facility] Start: 01-10-2021 COVID-19 VACCINE (3 - Moderna risk 4-dose series) COVID-19 VACCINE (3 - Moderna risk 4-dose series) [facility] Start: 01-10-2021 COVID-19 VACCINE (3 - Moderna risk series) COVID-19 VACCINE (3 - Moderna risk series) [facility] Start: 2017 RSV Vaccine (1 - 1-d ose 60+ series) RSV Vaccine (1 - 1-dose 60+ series) [facility] Start: 2017 RSV Vaccine (1 - Ris k 60-74 years 1-dose series) RSV Vaccine (1 - Risk 60-74 years 1-dose series) [facility] Start: 02-14-2012 PROSTATE CANCER SCREENING DISCUSSION PROSTATE CANCER SCREENING DISCUSSION [facility] Start: 02-14-2012 Prostate specific antigen measurement Prostate Cancer Screening Discussion [facility] Start: 2007 SHINGRIX VACCINE (1 of 2) SHINGRIX VACCINE (1 of 2) [facility] Start: 2002 COLOGUARD (FIT-DNA) COLOGUARD (FIT-D NA) [facility] Start: 2002 Colonoscopy COLONOSCOPY [facility] Start: 2002 COLORECTAL CANCER SCREENING COLORECTAL CANCER SCREENING [facility] [facility] Start: [address] COLONOGRAPHY [facility] Start: 2002 FECAL OCCULT BLOOD FECAL OCCULT BLOO D [facility] Start: 2002 Screening for malign ant neoplasm of colon [facility] Start: 2002 SIGMOIDOSCOPY SIGMOIDOSCOPY [facility] Start: 02-14-1992 Lipid 1996 panel - Serum or Plasma Lipid Screening [facility] Start: 02-14-1992 Lipid panel Lipid Screening [facility] Start: 02-14-1992 LIPID SCREEN LIPID SCREEN [facility] Start: 1987 Zoledronic acid therapy ALPHA- 1 ANTITRYPSIN DEFICIENCY SCREENING [facility] Start: 02-14-1976 SHINGRIX VACCINE (1 of 2) SHINGRIX VACCINE (1 of 2) [facility] Start: 1975 ANNUAL PCP TEAM RIVETER AUTOMOBILE BRAKES ALYSSA DISEASE VISIT ANNUAL PCP TEAM CHRONIC DISEASE VISIT [facility] Start: 1975 Anxiety Screening Anxiety Screening [facility] Start: 1975 BP CONTROLLED (<130/80) BP CONTROLLE D (<130/80) [facility] Start: 1975 Depression Screening Depression Scre ening [facility] Start: 1975 Hepatitis B surface antibody level LDL CHOLESTEROL [facility] Start: 1975 HEPATITIS C SCREENING HEPATITIS C SC REENING [facility] Start: 1975 Hepatitis C screening Hepatitis C Jonny ken [facility] Start: 1975 HIV SCREENING HIV SCREENING [facility] Start: 1969 Adult depression screening assessment DEPRESSION SCREENING [facility] Start: 1963 PNEUMOCOCCAL (1 - PCV) PNEUMOCOCCAL (1 - PCV) [facility] Start: 1963 Pneumococcal Vaccine : 65+ (1 - PCV) Pneumococcal Vaccine: 65+ (1 - PCV) [facility] Start: 1963 Pneumococcal Vaccine : 65+ (1 of 2 - PCV) Pneumococcal Vaccine: 65+ (1 of 2 - PCV) [facility] Start: 1963 PNEUMOCOCCAL: 65+ (1 - PCV) PNEUMOCOCCAL: 65+ (1 - PCV) [facility] Start: 1957 ABDOMINAL AORTIC ANEURYSM SCREENING ABDOMINAL AORTIC ANEURYSM SCREENING [facility] Start: 1957 Abdominal aortic aneurysm screening Abdominal Aortic Aneurysm Screening [facility] Anion gap measurement [facility] aPTT in Platelet poo r plasma by Coagulation assay [facility] Basophils [#/volume] in Blood by Automated count [facility] Basophils/100 leukocytes in Blood by Automated count [facility] Biopsy soft tissue neck/thorax BIOPSY SOFT TISSUE NECK/CHEST Procedures Routine Malignant neoplasm of upper lobe of left lung (HCC) Ordered: 10/15/2022 [facility] Work Phone: Comment on above: Ordered: 10/15/2022 End: 05-08-2023 Bone &/joint imaging whole body NM BONE WHOLE BODY Radiology Routine Malignant neoplasm of unspecified part of unspecified bronchus or lung (HCC) 1 Occurrences starting 04/08/2022 until 05/08/2023 [facility] Work Phone: Comment on above: 1 Occurrences starti ng 04/08/2022 until 05/08/2023 End: 09-19-2023 Ct abdomen & pelvis w/contrast material CT ABD/PEL W IVCON Radiology Routine Malignant neoplasm of upper lobe of left lung (HCC) 1 Occurrences starting 08/20/2022 until 09/19/2023 [facility] Work Phone: Comment on above: 1 Occurrences starti ng 08/20/2022 until 09/19/2023 End: 09-19-2023 CT CHEST W IVCON CT CHEST W IVCON Radiology Routine 1 Occurrences starting 08/20/2022 until 09/19/2023 [facility] Work Phone: Comment on above: 1 Occurrences starti ng 08/20/2022 until 09/19/2023 CT Guidance for radiation treatment of Unspecified body region CT SIM PLANNING RADIATION ONCOLOGY Radiology Routine Malignant neoplasm of upper lobe of left lung (HCC) Ordered: 12/02/2023 [facility] Work Phone: Comment on above: Ordered: 12/02/2023 CT SIM PLANNING RADIATION ONCOLOGY CT SIM PLANNING RADIATION ONCOLOGY Radiology Routine Malignant neoplasm of upper lobe of left lung (HCC) Ordered: 03/20/2022 [facility] Work Phone: Comment on above: Ordered: 03/20/2022 CT SIM PLANNING RADIATION ONCOLOGY CT SIM PLANNING RADIATION ONCOLOGY Radiology Routine Malignant neoplasm of unspecified part of unspecified bronchus or lung (HCC) Ordered: 10/21/2022 [facility] Work Phone: Comment on above: Ordered: 10/21/2022 CT SIM PLANNING RADIATION ONCOLOGY CT SIM PLANNING RADIATION ONCOLOGY Radiology Routine Oropharnyx cancer (HCC) Ordered: 06/11/2023 [facility] Work Phone: Comment on above: Ordered: 06/11/2023 Eosinophils/100 leukocytes in Blood by Automated count [facility] Erythrocyte distribution width [Ratio] by Automated count [facility] Erythrocytes [#/volu me] in Blood [facility] Hematocrit [Volume Fraction] of [facility] Hemoglobin [Mass/volume] in [facility] Hemoglobin.gastroint est inal.lower [Presence] in Stool by Immunoassay FECAL OCCULT BLOOD TEST Lab Routine Malignant neoplasm of upper lobe of left lung (HCC) Ordered: 02/07/2022 [facility] Work Phone: Comment on above: Ordered: 02/07/2022 Hepatic function 200 0 panel - Serum or Plasma HEPATIC FUNCTION PNL Lab STAT Malignant neoplasm of upper lobe of left lung (HCC) 11/11/2022 2:47 PM EDT [facility] Work Phone: INR in Platelet poor plasma by Coagulation assay [facility] Leukocytes [#/volume ] corrected for nucleated erythrocytes in Blood by Automated coun [facility] Leukocytes [#/volume ] in Blood [facility] End: 04-14-2025 LUNG DIFFUSION CAPACITY (DLCO) LUNG DIFFUSION CAPACITY (DLCO) PFT Routine Centrilobular emphysema (HCC) Dyspnea on exertion 1 Occurrences starting 03/15/2024 until 04/14/2025 [facility] Comment on above: 1 Occurrences starti ng 03/15/2024 until 04/14/2025 Lymphocytes [#/volum e] in Blood by Automated count [facility] Lymphocytes/100 leukocytes in Blood by Automated count [facility] MCH [Entitic mass] b y Automated count [facility] MCHC [Mass/volume] b y Automated count [facility] MCV [Entitic volume] by Automated count [facility] Monocytes [#/volume] in Blood by Automated count [facility] Monocytes/100 leukocytes in Blood by Automated count [facility] End: 04-22-2025 MR Brain WO and W contrast IV MRI BRAIN WO/W IVCON Radiology Routine 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) 1 Occurrences starting 03/23/2024 until 04/22/2025 [facility] Work Phone: Comment on above: 1 Occurrences starti ng 03/23/2024 until 04/22/2025 MRA Head vessels WO contrast [facility] Neutrophils [#/volum e] in Blood by Automated count [facility] Neutrophils/100 leukocytes in Blood by Automated count [facility] End: 10-23-2023 NM PET/CT SKULL-THIGH SUBSEQUENT NM PET/CT SKULL-THIGH SUBSEQUENT Radiology Routine Lung nodules 1 Occurrences starting 09/23/2022 until 10/23/2023 [facility] Work Phone: Comment on above: 1 Occurrences starti ng 09/23/2022 until 10/23/2023 End: 09-23-2024 NM PET/CT SKULL-THIGH SUBSEQUENT NM PET/CT SKULL-THIGH SUBSEQUENT Radiology Routine 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) 1 Occurrences starting 08/25/2023 until 09/23/2024 [facility] Work Phone: Comment on above: 1 Occurrences starti ng 08/25/2023 until 09/23/2024 Nucleated erythrocyt es [Presence] in Blood by Automated count [facility] Patient Education [facility] Work Phone: Patient referral [facility] Work Phone: End: 12-03-2024 PET+CT Guidance for localization of tumor of Skull base to mid-thigh-- W 18F-FDG IV NM PET/CT SKULL-THIGH SUBSEQUENT Radiology Routine 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) 1 Occurrences starting 11/04/2023 until 12/03/2024 [facility] Work Phone: Comment on above: 1 Occurrences starti ng 11/04/2023 until 12/03/2024 End: 03-04-2025 PET+CT Guidance for localization of tumor of Skull base to mid-thigh-- W 18F-FDG IV NM PET/CT SKULL-THIGH SUBSEQUENT Radiology Routine 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 Swelling of arm Cancer associated pain 1 Occurrences starting 02/03/2024 until 03/04/2025 [facility] Comment on above: 1 Occurrences starti ng 02/03/2024 until 03/04/2025 Platelet mean volume [Entitic volume] in Blood by Automated count [facility] Platelets [#/volume] in Blood [facility] Prothrombin time (PT) [facility] End: 11-10-2022 Radiologic exam chest 2 views XR CHEST 2V FRONTAL/LAT Radiology Routine Malignant neoplasm of upper lobe of left lung (HCC) 1 Occurrences starting 10/11/2021 until 11/10/2022 [facility] Work Phone: Comment on above: 1 Occurrences starti ng 10/11/2021 until 11/10/2022 SPIROMETRY WITH DILA TOR IF OBSTRUCTED SPIROMETRY WITH DILATOR IF OBSTRUCTED PFT Routine Chronic obstructive pulmonary disease, unspecified COPD type (HCC) Lung nodule 01/29/2022 7:47 AM EDT [facility] Work Phone: End: 04-14-2025 SPIROMETRY WITH DILATOR IF OBSTRUCTED SPIROMETRY WITH DILATOR IF OBSTRUCTED PFT Routine Centrilobular emphysema (HCC) Dyspnea on exertion 1 Occurrences starting 03/15/2024 until 04/14/2025 [facility] Work Phone: Comment on above: 1 Occurrences starti ng 03/15/2024 until 04/14/2025 End: 03-04-2025 US Upper extremity vein - left US DVT UPPER LEFT Radiology STAT 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) Swelling of arm 1 Occurrences starting 02/03/2024 until 03/04/2025 [facility] Comment on above: 1 Occurrences starti ng 02/03/2024 until 03/04/2025 [facility] Immunizations Immunization Date Immunization Notes Care Provider Fa monica 12-13-2020 COVID-19 vaccine, fu ll dose (MODERNA) Aracelis Carrillo APRN.TYPEWRITER TESTER Work Phone: [facility] 11-15-2020 COVID-19 vaccine, fu ll dose (MODERNA) Aracelis Carrillo APRN.TYPEWRITER TESTER Work Phone: [facility] 10-13-2020 diphtheria, tetanus toxoids and pertussis vaccine Aracelis Carrillo APRN.TYPEWRITER TESTER Work Phone: [facility] Payers Date Payer Category Payer Self-pay [id number] 2023 Private Health Insurance [facility] [id number] 2022 Medicare MEDICARE MEDICAR E A AND B [id number] 2022-[facility] [phone] [address] [address] [place] [address] Medicare [id number] 2022 Medicare [id number] 2019 Medicaid [id number] 2000 Medicaid [id number] .[id number] 1959 Medicare [id number] 1959 Unknown [id number] 1957 Unknown [id number] 2.16.840.1.401474.3.579.2.6 47 1957 Unknown [id number] 2.16.840.1.958067.3.579.2.5 93 1957 Unknown [id number] 2.16.840.1.411785.3.579.2.5 93 1957 Unknown [id number] 2.16.840.1.602651.3.579.2.5 93 1957 Unknown [id number] 2.16.840.1.599471.3.579.2.5 93 1957 Unknown [id number] 2.16.840.1.035103.3.579.2.5 93 1957 Unknown [id number] 2.16.840.1.915140.3.579.2.5 93 1957 Unknown [id number] 2.16.840.1.851881.3.579.2.5 93 1957 Unknown [id number] 2.16.840.1.436167.3.579.2.5 93 1957 Unknown [id number] 2.16.840.1.318762.3.579.2.5 93 1957 Unknown [id number] 2.16.840.1.053936.3.579.2.5 93 1957 Unknown [id number] 2.16.840.1.904178.3.579.2.3 56 1957 Unknown [id number] 2.16.840.1.588216.3.579.2.7 1957 Unknown [id number] 2.16.840.1.941217.3.579.2.7 1957 Unknown [id number] 2.16.840.1.215871.3.579.2.7 27 -27-1957 Unknown [id number] 2.16.840.1.808389.3.579.2.7 1957 Unknown [id number] 2.16.840.1.614584.3.579.2.7 1957 Unknown [id number] 2.16.840.1.513966.3.579.2.7 1957 Unknown [id number] 2.16.840.1.276637.3.579.2.7 1957 Unknown [id number] 2.16.840.1.918229.3.579.2.7 1957 Unknown [id number] 2.16.840.1.282590.3.579.2.7 1957 Unknown [id number] 2.16.840.1.674760.3.579.2.7 1957 Unknown [id number] 2.16.840.1.216988.3.579.2.7 1957 Unknown [id number] 2.16.840.1.902153.3.579.2.7 1957 Unknown [id number] 2.16.840.1.308990.3.579.2.7 1957 Unknown [id number] 2.16.840.1.502514.3.579.2.7 1957 Unknown [id number] 2.16.840.1.025593.3.579.2.7 1957 Unknown [id number] 2.16.840.1.896929.3.579.2.7 1957 Unknown [id number] 2.16.840.1.269136.3.579.2.7 Unknown [id number] 2.16.840.1.221882.3.579.2.5 31 Unknown [id number] 2.16.840.1.303110.3.579.2.5 31 Unknown [id number] 2.16.840.1.989249.3.579.2.5 31 Unknown [id number] 2.16.840.1.641900.3.579.2.5 31 Social History Date Type Detail Facility Start: 07-03-2021 End: 03-15-2024 Tobacco smoking status NHIS Ex-smoker [facility] Start: 07-21-1970 End: 07-13-2020 History of tobacco use Current smoker [facility] Start: 07-21-1970 End: 07-21-2020 History of tobacco use Cigarette Smoker [facility] Start: 07-03-2021 End: 03-15-2024 Tobacco use and exposure Smokeless tobacco non-user [facility] Start: 10-11-2021 End: 03-17-2024 Alcohol intake Current drinker of alcohol (finding) [facility] Start: 10-11-2021 End: 11-20-2022 Alcohol intake [facility] Start: 09-25-2021 End: 03-26-2022 Tobacco Comment was smoking on and off fully quit 09/14/21 [facility] Start: 1955 Sex Assigned At Not on file [facility] Start: 04-27-2021 End: 06-11-2022 Exposure to SARS-CoV-2 (event) Not sure [facility] Start: 10-19-2021 History SDOH Alcohol Comment 4-9 beers per day [facility] Start: 04-16-2021 Tobacco smoking stat us TNIS Current some day smoker [facility] Start: 1955 Sex Assigned At Male F [facility] History of tobacco use Passive smoker [facility] Start: 11-20-2022 End: 01-28-2023 Tobacco use panel [facility] Adult Depression Screening Assessment 0 [facility] Start: 07-21-1970 Tobacco smoking stat us TNIS Light tobacco smoker [facility] Goals Date Patient Goal Desired Activity /State Functional Status Date Assessment Result Facility 03-19-2024 Functional status Patient at Baseline [facility] Work Phone: Mental Status Date Assessment Result Facility 03-19-2024 Cognitive function Cognitive Sta tus Patient at Baseline [facility] Work Phone: Clinical Notes 05-28-2021 to 04-20-2024 Telephone Encounter - Lisa Figueroa - 04/20/2024 10:58 AM EDTTelephone Encounter - Josénancy Lisa - 04/20/2024 10:58 AM EDTTelephone Encounter - Janice Figueroatany - 04/20/2024 10:25 AM EDT Note Date & Type Note Facility 04-20-2024 Telephone encount er Note Images from the original note were not included. Julieth Tapia RN You; Denita Rai RN18 minutes ago (10:39 AM) SM Confirmed patient is under [facility] so they should be ordering all medications. [facility] 04-20-2024 Miscellaneous Notes Formattin g of this note is different from the original. Images from the original note were not included. Julieth Tapia RN You; Denita Rai RN18 minutes ago (10:39 AM) SM Confirmed patient is under [facility] so they should be ordering all medications. Patient was recently admitted to hospice and appointment was cancelled per RNCC. Does patient still need this? Lisa Figueroa Coverage for Pipo Fish APRN Reviewed most recent notes. Patient is on olanzapine, not trazodone. Refilled not provided. Licha Suresh APRN.[facility] Pharmacy requesting refills as follows: Last ordered 01/09/2024. Last PM f/u duong 03/17/2024 Next scheduled follow up appointment. Recommended 4 Weeks in person. Schedulers: Please contact patient to re-scheduled with 4 week f/u appt with Christina Fish CNP Requested Prescriptions Pending Prescriptions Disp Refills traZODone (DESYREL) 50 mg tablet [Pharmacy Med Name: trazodone 50 mg tablet] 30 tablet 1 Sig: take 1 tablet by mouth at bedtime Julieth Tapia RN April 19, 2024 documented in this encounter [facility] 04-20-2024 Telephone encount er Note Patient was recently admitted to hospice and appointment was cancelled per RNCC. Does patient still need this? Lisa Figuerao [facility] 04-19-2024 Telephone encount er Note Palliative Medicine Care Coordination Follow up Phone Call Patient identified by name and : Yes Spoke to: patient Nurse calling to follow up on denial of refill for Trazodone since on Olanzapine. Patient reports he is under hospice care now with [facility] and they are prescribing his medications. Let him know we would update Christina VILLEDA. List membership updated. No future Pall Med appts. Julieth Tapia RN April 19, 2024 10:39 AM [facility] 04-19-2024 Miscellaneous Notes Formattin g of this note might be different from the original. Palliative Medicine Care Coordination Follow up Phone Call Patient identified by name and : Yes Spoke to: patient Nurse calling to follow up on denial of refill for Trazodone since on Olanzapine. Patient reports he is under hospice care now with [facility] and they are prescribing his medications. Let him know we would update Christina VILLEDA. List membership updated. No future Pall Med appts. Julieth Tapia RN April 19, 2024 10:39 AM documented in this encounter [facility] 04-19-2024 Telephone encount er Note Coverage for Pipo Fish APRN Reviewed most recent notes. Patient is on olanzapine, not trazodone. Refilled not provided. Licha Suresh APRN.[facility] Work Phone: 04-19-2024 Telephone encount er Note Pharmacy requesting refills as follows: Last ordered 01/09/2024. Last PM f/u duong 03/17/2024 Next scheduled follow up appointment. Recommended 4 Weeks in person. Schedulers: Please contact patient to re-scheduled with 4 week f/u appt with Christina Fish CNP Requested Prescriptions Pending Prescriptions Disp Refills traZODone (DESYREL) 50 mg tablet [Pharmacy Med Name: trazodone 50 mg tablet] 30 tablet 1 Sig: take 1 tablet by mouth at bedtime Julieth Tapia RN April 19, 2024 [facility] 04-06-2024 Telephone encount er Note All appointments have been cancelled. Thanks! Lisa Figueroa [facility] 04-06-2024 Miscellaneous Notes Formattin g of this note might be different from the original. All appointments have been cancelled. Thanks! Lisa Figueroa FYI: Pt signed with [facility] on Friday. Clerical: Please cancel all future appointments. Denita Rai, RN Denita Rai, RN documented in this encounter [facility] 04-06-2024 Telephone encount er Note Pt signed on w/ Cr. Message left / [facility] Central Scheduling advising they cancel our request for MRI. Denita Rai RN [facility] 04-06-2024 Miscellaneous Notes Formattin g of this note might be different from the original. Pt signed on w/ [place]. Message left / [facility] Central Scheduling advising they cancel our request for MRI. Denita Rai RN Per previous message, I gave them cardiology number to call to ask questions that I was not able to answer. Bernadine Rodriguez RN [facility] states Pérez is still not scheduled. He has a femoral artery stent and they need more information on that before he can be scheduled. Can you help with this information? Call received from Bala at [facility] who states he needs to know of any implanted devices pt has. Reviewed with Bala and also gave him cardiology number to call due to further questions Bala had about stent that I was not able to answer. Bala states he called the pt to ask him these questions and pt was very rude and nasty to him. was as well. Bernadine Rodriguez RN MRI was approved, however pt hasn't been scheduled for this. Spoke with Bala and he will call pt to schedule. My number given to Bala to call our office back once scheduled. Bernadine Rodriguez RN MRI Pending still. Called patient & let him know that the MRI needed a pre certification through [facility] & that I faxed the paperwork & order over to them today. Once the pre certification is done then we will set up the appointment at [facility] for the MRI. [place] Clerical: Please schedule MRI @ [facility]. Denita Rai RN Pt notified and verbalizes understanding. Follows w/ [facility] already. Had an appointment w/ Christina just last week on 03/17. BRM: MRI order pended. Denita Rai RN Would recommend brain MRI. Please schedule at [facility] or [facility] facility. Would hold Lumakras for now. Recommend referral to palliative medicine to assist with symptom control and try to wean some of his other medications. Will see him back in 2 weeks to review current condition and discuss options for chemotherapy. Records scanned. FYI: Pt presented back to ER on 03/19/24 for admission. Was discharged home on 03/20. Summary notes that pt was evaluated by neurology. Neurology and pt feels his forgetfulness and unsteady gait was due to chemotherapy. Recommended outpatient MRI. Was discharged home in stable condition. BRM: Does not appear pt was sent home w/ order for MRI. Do you want to order? Denita Rai RN Pt's calls back stating pt sat in the ER for several hours today and finally had a CXR and CT done. She states they were negative. states the ER physician wanted to admit pt, but pt wanted to go home to take his medications and to take a shower. ER offered for pt to go back after this was done to be admitted. asking if we can just fax an order over to the hospital for pt to have MRI done. Encouraged pt to go back to be admitted since this was the recommendation of the ER physician. verbalized understanding and will take him back. Bernadine Rodriguez RN Spoke with John, pt's family member who states she has pt at the registration desk at [facility] waiting for a brain scan to be done, but they need orders. Explained to John that pt was instructed to go to the ER yesterday from his visit her due to change in mental status. John states pt did go to the ER but left before he was ever seen because he was having uncontrollable pain and needed some pain medication. Pt's son took pt to the ER and told John that pt was instructed to come back in the morning to have a scan done, so they're there now. Explained to John that pt needs to be assessed for mental status changes, and if the ER instructed him to come back then she would have to follow up with the ER staff regarding that. John verbalized understanding. Pt is already there and she will have him assessed. Tomasa: can you keep an eye out for records later today. Thanks Bernadine Rodriguez, RN Patient left ER without being seen. Bernadine: Can f/u tomorrow? Thanks! Tomasa: Please scan [facility] records when available. Thanks! Denita Rai RN Pt presented to office w/ mental status changes. Dr Grigsby advised he go to ER for evaluation. Report phoned to KERRY Red @ [facility]. H&P, today's labs, and med list faxed. Denita Rai RN documented in this encounter [facility] 04-06-2024 Telephone encount er Note Pt signed on / [facility]. Message left [facility] Scheduling advising they cancel our request for MRI. Denita Rai RN [facility] Work Phone: 04-06-2024 Miscellaneous Notes Formattin g of this note might be different from the original. Pt signed on / [facility]. Message left [facility] Scheduling advising they cancel our request for MRI. Denita Rai RN Clerical: Please make sure MRI appointment gets scheduled at [facility]. Precert completed. They were supposed to be calling pt. Refer to 's instructions below. Thanks! Denita Rai RN Best that we see him after the MRI if it can be done soon. Otherwise schedule appointment for 04/08. BRM: Pt home from hospital on Eliquis, Levaquin, and Prednisone. Will be seeing his PCP today. Still waiting for the MRI @ [facility]. Looks like it's been approved and they will be reaching out to pt to schedule. Do you want to wait for the MRI before seeing pt or should we go ahead an schedule a follow up in the meantime? Denita Rai RN EMERGENCY ROOM CALL BACK Today's date: March 31, 2024 Patient identified by name and date of . YES Primary Cancer Diagnosis: Metastatic Lung Cancer Reason for Emergency Room Visit: Shortness of breath and left arm swelling Time of day presented to Emergency Room 0100 If Fri-Friday during business hours: N/A Patient with any new symptom issues: No Psychosocial Risk Factors: None FOLLOW UP Patient reminded of her follow-up appointment with [facility] provider, Dr Grigsby on TBD: Informed pt and pt's son, Maren Sheldon that our office would be contacting them w/ an appointment. Next Flash Drier Operator outreach with patient scheduled? Advised they call w/ any questions or concerns. Discussed - Spoke w/ both pt and pt's son, Maren Sheldon. Pt reports he returned to the ER early this morning due to c/o left arm swelling. ER records note pt c/o dyspnea as well. Pt received solumedrol for his known COPD. Repeat CXR showed infiltrates that had improved. ER records note there was no clinical evidence supporting cellulitis or DVT. Pt was dc'd home. Pt wearing home oxygen @ 2 LPM. SOB w/ exertion, but notes the oxygen helps. Still having intermittent pain in his left shoulder. Spoke w/ pt's son who reports the pt is still having intermittent episodes of confusion. Dc'd home from hospital previously on Levaquin, Prednisone, and Eliquis. Pt's son states that he is taking these as prescribed. Pt to see his PCP today @ 2 PM for follow up from hospitalization. PATIENT EDUCATION/REINFORCEMENT Patient verbalizes understanding of when to seek Medical Attention? YES Patient verbalizes understanding of after hours and weekend phone number? YES Patient verbalizes understanding of next outreach appointment? YES Denita Rai RN documented in this encounter [facility] 04-06-2024 Telephone encount er Note FYI: Pt signed with [facility] on Friday. Clerical: Please cancel all future appointments. Denita Rai RN Denita Rai RN [facility] Work Phone: 04-05-2024 Telephone encount er Note Per previous message, I gave them cardiology number to call to ask questions that I was not able to answer. Bernadine Rodriguez RN [facility] Work Phone: 04-05-2024 Telephone encount er Note [facility] states Pérez is still not scheduled. He has a femoral artery stent and they need more information on that before he can be scheduled. Can you help with this information? [facility] 04-01-2024 Telephone encount er Note FYI: Lorraine from [facility] reports that the pt presented to their stating Dr Grigsby recommended a compression sleeve for pt's arm swelling. Lorraine calling for specific compression instructions. Informed Lorraine that Dr Grigsby did not order the compression sleeve. Also, informed Lorraine that the pt saw his PCP yesterday. Advised she contact their office regarding the sleeve request. Lorraine verbalizes understanding and agrees. Denita Rai RN [facility] Work Phone: 04-01-2024 Miscellaneous Notes Formattin g of this note might be different from the original. FYI: Lorraine from [facility] reports that the pt presented to their stating Dr Grigsby recommended a compression sleeve for pt's arm swelling. Lorraine calling for specific compression instructions. Informed Lorraine that Dr Grigsby did not order the compression sleeve. Also, informed Lorraine that the pt saw his PCP yesterday. Advised she contact their office regarding the sleeve request. Lorraine verbalizes understanding and agrees. Denita Rai RN documented in this encounter [facility] 03-31-2024 Telephone encount er Note Clerical: Please make sure MRI appointment gets scheduled at [facility]. Precert completed. They were supposed to be calling pt. Refer to Dr's instructions below. Thanks! Denita Rai RN [facility] 03-31-2024 Telephone encount er Note Best that we see him after the MRI if it can be done soon. Otherwise schedule appointment for 04/08. [facility] 03-31-2024 Telephone encount er Note BRM: Pt home from hospital on Eliquis, Levaquin, and Prednisone. Will be seeing his PCP today. Still waiting for the MRI @ [facility]. Looks like it's been approved and they will be reaching out to pt to schedule. Do you want to wait for the MRI before seeing pt or should we go ahead an schedule a follow up in the meantime? Denita Rai RN [facility] 03-31-2024 Telephone encount er Note EMERGENCY ROOM CALL BACK Today's date: March 31, 2024 Patient identified by name and date of . YES Primary Cancer Diagnosis: Metastatic Lung Cancer Reason for Emergency Room Visit: Shortness of breath and left arm swelling Time of day presented to Emergency Room 0100 If Fri-Friday during business hours: N/A Patient with any new symptom issues: No Psychosocial Risk Factors: None FOLLOW UP Patient reminded of her follow-up appointment with [facility] provider, Dr Grigsby on TBD: Informed pt and pt's son, Maren Sheldon that our office would be contacting them w/ an appointment. Next Flash Drier Operator outreach with patient scheduled? Advised they call w/ any questions or concerns. Discussed - Spoke w/ both pt and pt's son, Maren Sheldon. Pt reports he returned to the ER early this morning due to c/o left arm swelling. ER records note pt c/o dyspnea as well. Pt received solumedrol for his known COPD. Repeat CXR showed infiltrates that had improved. ER records note there was no clinical evidence supporting cellulitis or DVT. Pt was dc'd home. Pt wearing home oxygen @ 2 LPM. SOB w/ exertion, but notes the oxygen helps. Still having intermittent pain in his left shoulder. Spoke w/ pt's son who reports the pt is still having intermittent episodes of confusion. Dc'd home from hospital previously on Levaquin, Prednisone, and Eliquis. Pt's son states that he is taking these as prescribed. Pt to see his PCP today @ 2 PM for follow up from hospitalization. PATIENT EDUCATION/REINFORCEMENT Patient verbalizes understanding of when to seek Medical Attention? YES Patient verbalizes understanding of after hours and weekend phone number? YES Patient verbalizes understanding of next outreach appointment? YES Denita Rai RN [facility] 03-31-2024 Telephone encount er Note DISCHARGE CALL BACK Today's date: March 31, 2024 Notified of Pt discharge by: Call placed to [facility] for follow up. Patient discharged on 03/30/24 from [facility] Med Surg to Home Primary Cancer Diagnosis: Metastatic Lung Cancer Admitting Diagnosis: Acute Respiratory Failure Discharge Summary/SBAR reviewed: Yes Handoff Discussed with Transitional Flash Drier Operator: No, unavailable Psychosocial Risk Factors: None If patient discharged to SNF/Rehab Facility, phone call completed to reinforce discharge instructions and follow up: N/A Call Disposition: Readmitted or In Emergency Department. Pt presented to ER due to c/o left arm swelling. Denita Rai RN [facility] Work Phone: 03-31-2024 Miscellaneous Notes Formattin g of this note might be different from the original. DISCHARGE CALL BACK Today's date: March 31, 2024 Notified of Pt discharge by: Call placed to [facility] for follow up. Patient discharged on 03/30/24 from [facility] Med Surg to Home Primary Cancer Diagnosis: Metastatic Lung Cancer Admitting Diagnosis: Acute Respiratory Failure Discharge Summary/SBAR reviewed: Yes Handoff Discussed with Transitional Flash Drier Operator: No, unavailable Psychosocial Risk Factors: None If patient discharged to SNF/Rehab Facility, phone call completed to reinforce discharge instructions and follow up: N/A Call Disposition: Readmitted or In Emergency Department. Pt presented to ER due to c/o left arm swelling. Denita Rai RN documented in this encounter [facility] 03-31-2024 Telephone encount er Note Call received from Bala at [facility] who states he needs to know of any implanted devices pt has. Reviewed with Bala and also gave him cardiology number to call due to further questions Bala had about stent that I was not able to answer. Bala states he called the pt to ask him these questions and pt was very rude and nasty to him. was as well. Bernadine Rodriguez RN [facility] 03-31-2024 Telephone encount er Note MRI was approved, however pt hasn't been scheduled for this. Spoke with Bala and he will call pt to schedule. My number given to Bala to call our office back once scheduled. Bernadine Rodriguez RN [facility] 03-29-2024 Telephone encount er Note The following approved medication requests have been transmitted electronically. Requested Prescriptions Signed Prescriptions Disp Refills dexAMETHasone (DECADRON) 4 mg tablet 30 tablet 1 Sig: take 1 tablet by mouth twice daily with meals Authorizing Provider: ESTELLA FISH RN [facility] 03-29-2024 Miscellaneous Notes Formattin g of this [...] Marichuy Coronel RN documented in this encounter [facility] 03-29-2024 Telephone encount er Note pharmacy phones requesting refills as follows: Last ordered 03/09/24 Last pall med visit on 03/17/24 Future appt 04/14/24 Requested Prescriptions Pending Prescriptions Disp Refills dexAMETHasone (DECADRON) 4 mg tablet [Pharmacy Med Name: dexamethasone 4 mg tablet] 30 tablet 1 Sig: take 1 tablet by mouth twice daily with meals Please review and advise. Marichuy Coronel RN [facility] 03-29-2024 Telephone encount er Note MRI Pending still. [facility] 03-24-2024 Telephone encount er Note Called patient & let him know that the MRI needed a pre certification through [facility] & that I faxed the paperwork & order over to them today. Once the pre certification is done then we will set up the appointment at [facility] for the MRI. [place] [facility] 03-23-2024 Telephone encount er Note Clerical: Please schedule MRI @ [facility]. Denita Rai RN [facility] 03-23-2024 Telephone encount er Note Pt notified and verbalizes understanding. Follows w/ Diann Wright already. Had an appointment w/ Christina just last week on 03/17. BRM: MRI order pended. Denita Rai RN [facility] 03-23-2024 Telephone encount er Note Would recommend brain MRI. Please schedule at [facility] or [facility] facility. Would hold Lumkemiras for now. Recommend referral to palliative medicine to assist with symptom control and try to wean some of his other medications. Will see him back in 2 weeks to review current condition and discuss options for chemotherapy. [facility] 03-23-2024 Telephone encount er Note Records scanned. [facility] 03-23-2024 Telephone encount er Note FYI: Pt presented back to ER on 03/19/24 for admission. Was discharged home on 03/20. Summary notes that pt was evaluated by neurology. Neurology and pt feels his forgetfulness and unsteady gait was due to chemotherapy. Recommended outpatient MRI. Was discharged home in stable condition. MILADYSM: Does not appear pt was sent home w/ order for MRI. Do you want to order? Denita Rai RN [facility] 03-20-2024 Consult note Note Date/Time March 20, 2024 11:06am [facility] [address] [place] [address] Neurology Consult Note Signed Patient: Cristal Gu MR#: [id number] : 1955 Acct:[id number] Age/Sex: 69 / M Adm Date: 4 Loc: 3T Room: [address] [place] [address] Type: ADM INOo Attending Dr: Jair Nichols MD Copies to: NON STAFF MD Denisse Olivia DO~ HPI Consult Date: 03/20/24 Nanotechnology Engineering Technologist: Denisse Dial DO Reason for consult: AMS [...] lately. He previously went to the [facility] and walked 2 miles. He quite [...] later on as he changed his mind. [facility] Medical History Diverticulosis History of rib [...] of dysmetria with good rapid alternating movements [id number] Tone is physiologic Sensation is intact to [...] <Electronically signed by DO Denisse Dial> 03/20/24 [address] [facility] Work Phone: 1(555) 519-252708-31-2024 History and physical note Author Jair Nichols [facility] March 19, 2024 10:21pm Note Date/Time March 19, 2024 10 :21pm [facility] [address] [place] [address] Hospitalist H&P Signed Patient: Cristal Gu MR#: [id number] : 1955 Acct:[id number] Age/Sex: 69 / M Adm Date: 4 Loc: 3T Room: [address] [place] [address] Type: ADM INOo Attending Dr: Jair Nichols [...] heat intolerance Hematologic/Lymphatic Hematologic/Lymphatic: Denies easy bruising PMFSH Medical History Diverticulosis History of rib fracture [...] inpatient consult. He sees Dr. Grigsby from [facility]. Patient may follow-up with him as an [...] By: <Electronically signed by Jair Nichols MD> 03/19/241 [facility] Work Phone: 1(784) 669-628308-30-2024 Telephone encounter Note* Telephone Encounter - Bernadine Rodriguez RN - 03/19/2024 3:06 PM EDT Pt's calls back stating pt sat in the ER for several hours today and finally had a CXR and CT done. She states they were negative. states the ER physician wanted to admit pt, but pt wanted to go home to take his medications and to take a shower. ER offered for pt to go back after this wasdone to be admitted. asking if we can just fax an order over to the hospital for pt to have MRI done. Encouraged pt to go back to be admitted since this was the recommendation of the ER physician. verbalized understanding and will take him back. Bernadine Rodriguez RN [facility]08-30-2024 Telephone encounter Note* Telephone Encounter - Bernadine Rodriguez RN - 03/19/2024 9:07 AM EDT Spoke with John, pt's family member who states she has pt at the registration desk at [facility] waitingfor a brain scan to be done, but they need orders. Explained to John that pt was instructed to go to the ER yesterday from his visit her due to change in mental status. John states pt did go to theER but left before he was ever seen because he was having uncontrollable pain and needed some pain m edication. Pt's son took pt to the ER and told John that pt was instructed to come back in the morning to have a scan done, so they're there now. Explained to John that pt needs to be assessed for mental status changes, and if the ER instructed him to come back then she would have to follow up with the ER staff regarding that. John verbalized understanding. Pt is already there and she will have him assessed. Tomasa: can you keep an eye out for records later today. Thanks Bernadine Rodriguez RN [facility]08-30-2024 Telephone encounter Note* Telephone Encounter - Vanessa Carl - 03/19/2024 7:46 AM EDT Patient left ER without being seen. [facility]08-29-2024 Telephone encounter Note* Telephone Encounter - Denita Rai RN - 03/18/2024 3:41 PM EDT Bernadine: Can f/u tomorrow? Thanks! Tomasa: Please scan [facility] records when available. Thanks! Denita Rai RN [facility]08-29-2024 Telephone encounter Note* Telephone Encounter - Denita Rai RN - 03/18/2024 2:01 PM EDT Pt presented to office w/ mental status changes. Dr Grigsby advised he go to ER for evaluation. Report phoned to KERRY Red @ [facility]. H&P, today's labs, and med list faxed. Denita Rai RN [facility]08-29-2024 Nurse Note* Pavithra Jacinto MA - 03/18/2024 1:25 PM EDT Patient son states that this morning he was acting strange, says that he put teeth in microwave, other son said he was eating dog food-[place] states he was picking it up because it was on the floor. They are not sure if it is his medications or not. Pavithra Jacinto MA [facility]08-29-2024 Nurse Note* Pavithra Jacinto MA - [...] not. Pavithra Jacinto MA documented in this encounterC[facility]24 NoteSelect [facility]08-28-2024 History of Present illness Narrative* Nina Grigsby MD - 03/17/2024 1:56 PM EDT PATIENT NAME: Cristal Gu DATE: 03/18/2024 PRIMARY CARE PHYSICIAN: Dr. Christina Azul OTHER PHYSICIANS: Dr. Verito Whelan, Dr. Marianne Fields, Dr. Damon Tse ([facility]) Christina Tavarez Portions of this encounter [...] 2019: Peripheral arterial disease (HCC) Comment: R DIRECTOR NEWS stent PAST SURGICAL HISTORY: PAST SURGICAL HISTORY 2019: BACK SURGERY HX 2016: CABG (4) VEIN GRAFTS & ARTERIAL GRAFT(S) 2019: LOWER EXTREMITY CHANGE MANAGEMENT MANAGER W/WO STENT; Right Comment: right common femoral [...] swelling and hand discoloration resolved. PATHOLOGY: 10/21/2022 [id number] NGS analysis KRAS G12C mutation present, 5.2% [...] No hypermetabolic osseous lesions 01/03/2023 Chest CTA ([facility]) Bilateral hilar soft tissue [...] prior study, as above. 04/12/2022 Bone scan ([facility]) Degenerative findings. No evidence of metastatic [...] tonsillar mass. The patient was reevaluated by [facility] May 2023 and it was felt [...] uses Percocet as needed. Continue management per F palliative medicine. 7. Abnormal LFTs Labs [...] it was recommended he proceed to the [facility] emergency room today for urgent evaluation to include brain scan. Based on scan results neurology consult should be considered. Nina Grigsby MD documented in this encounterC[facility]-28-2024 NoteSelect [facility] Specialty [facility] - [place]08-28-2024 History of Present illness Narrative* Estella Fish APRN.TYPEWRITER TESTER - 03/17/2024 12:38 PM EDT PALLIATIVE MEDICINE VIRTUAL PROGRESS NOTE SERVICE DATE: 03/17/2024 This visit was conducted as a virtual/telehealth visit, in lieu of a face to face encounter,patient's identity and physical location were verified at the time of this visit. Either the patient or their legal field sales representative has been informed of the [...] increased anxiety with increasing pain. Modified ESAS ([place] Symptom Assessment Scale) Information Provided By: Patient [...] No suspiciousactivity was identified. 03/17/2024 by Estella Fish, RACHEL, CONCERT MANAGER.TYPEWRITER TESTER Urine Screen Lab Results Component Value Date UAMPH Negative 09/26/2021 UBARB2 Negative 09/26/2021 UBENZ Negative 09/26/2021 UCOC2 Negative 09/26/2021 UOPI Negative 09/26/2021 UOXYC Negative 09/26/2021 UPCP Negative 09/26/2021 UTHC Negative 09/26/2021 UETOH <11 09/26/2021 Assessment & Plan (Z51.5) Palliative care by specialist (primary encounter diagnosis) - Reviewed philosophy of palliative medicine - Discussed services offered by [facility] - Provided support -Discussed services offered [...] Zofran prn every 8 hours - Increase [id number] mg p.o. at bedtime -Small frequent meals [...] lead to or permanent disability - Continue [id number] mg p.o. at bedtime - Effexor 37.5 [...] 4 Weeks in person Estella Fish NP, CONCERT MANAGER.TYPEWRITER TESTER March 17, 2024 1:24 PM I spent a total of 35 minutes on the date of the service which included preparing to see the patient, [id number] patient care, completing clinical documentation, obtaining and/or reviewing separately obtained history, performing a medically appropriate examination, counseling and educating the pat ient/family/caregiver, ordering medications, tests, or procedures, communicating with other HCPs (not separately reported), independently interpreting results (not separately reported), communicatingresults to the patient/family/caregiver, and care coordination (not separately reported). This note may have been partially generated using the [employer] voice recognition system. While every effort was made to correct voice recognition errors, kindly be aware that some errors may occasionally occur.occur documented in this encounterCrystal Clinic [facility]08-28-2024 NoteSelect Medical Specialty [facility] - [place]08-26-2024 NoteSelect Medical Specialty [facility] - [place]08-26-2024 History of Present illness Narrative* Merary Lucas [...] of breath. Takes anxiety medication which helps. [facility] appt tomorrow No recent pneumonia. He has been coughing up green things. He took an antibiotic, a pink pill, couple weeks ago. Maybe amoxicillin 02/04. Sounds like he was treated for bronchitis or exacerbation, unclear to me, at an outside facility. He has gone to ER for sob. Up until a couple of months ago he was walking 2 miles at the [facility]. 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 [place] March 15, 2024 1:01 PM I spent a total of 40 minutes on the date of the service which included preparing to see the patient, [id number] patient care, completing clinical documentation, obtaining and/or reviewing separately obtained history, performing a medically appropriate examination, counseling and educating the pat ient/family/caregiver, ordering medications, tests, or procedures, communicating with other HCPs (not separately reported), independently interpreting results (not separately reported), and communicating results to the patient/family/caregiver. documented in this encounterCrystal Clinic [facility] Center08-26-2024 Telephone encounter Note * Telephone Encounter [...] that he is currently scheduled to see Estellamillicent Fish this 03/17 @ 1030 in our [place] office. Appointment details written down per pt. Pt denies any other questions at this time. Denita Rai RN [facility] Work Phone: [phone]) 410-397708-26-2024 Miscellaneous Notes* Telephone Encounter - Denita Rai RN - 03/15/2024 9:49 AM EDT Pt calls requesting the address for today's appointment in [place]. Address provided to pt. Name of physician spelled out over the phone per pt request as well. Pt also asks for the date and time of hisPall Med appointment. Informed pt that [facility] in our [place] office. Appointment details written down per pt. Pt denies any other questions at this time. Denita Rai RN documented in this encounterCrystal Clinic Orthopedic Center08-20-2024 Telephone encounter Note * Telephone Encounter - Julieth Tapia RN - 03/09/2024 2:05 PM EDT Palliative Medicine Care Coordination Follow up Phone Call Patient returned our call. Patient identified by name and : Yes Spoke with Pérez. Let him know Christina VILLEDA would like to trial a steroid and she sent a prescription to his [facility]. Instructed him to follow the directions [...] Tapia RN March 09, 2024 2:10 PM [facility]08-20-2024 Miscellaneous Notes* Telephone Encounter - Julieth Tapia RN - 03/09/2024 2:05 PM EDT Palliative Medicine Care Coordination Follow up Phone Call Patient returned our call. Patient identified by name and : Yes Spoke with Pérez. Let him know Christina VILLEDA would like to trial a steroid and she sent a prescription to his [facility] pharmacy. Instructed him to follow [...] PM * Telephone Encounter - Estella Fish APRN.RONAL - 03/09/2024 1:17 PM EDT Lets try a dex pain taper, sent to [facility] He can also place two [...] medication he could take. His pharmacy [facility] in [place]. Please advise. Thanks! Deborah N Alana, RN documented in this encounterCrystal Clinic Orthopedic Center08-20-2024 Telephone encounter Note * Telephone Encounter - Denita Rai RN - 03/09/2024 1:52 PM EDT Pt calls w/ c/o increased pain. Informed pt that Pall Med attempted to contact him earlier today, but his voicemail was full. Phone number for Pall Med given to pt. Pt verbalizes understanding and will call them back. Denita Rai RN [facility] Work Phone: [phone] Telephone encounter Note* Telephone Encounter - Julieth Tapia RN - 03/09/2024 1:27 PM EDT Palliative Medicine Care Coordination Follow up Phone Call Telephone call to Cristal Gu and his brother Christina Gu with no answer, both VM's say VM box full and unable to leave a message. Julieth Tapia RN March 09, 2024 1:30 PM [facility]08-20-2024 Telephone encounter Note* Telephone Encounter - Estella Fish APRN.RONAL - 03/09/2024 1:17 PM EDT Lets try a dex pain taper, sent to [facility] He can also place two transdermal Fentanyl Patches on for a total of 100 mcg/hr [facility]08-20-2024 Telephone encounter Note* Telephone Encounter - [...] medication he could take. His pharmacy is [facility] in [place]. Please advise. Thanks! Deborah Warner, RN [facility]08-20-2024 Telephone encounter Note* Telephone Encounter - Yusef Pandya PA-C - 03/09/2024 11:30 AM EDT Orders in Yusef Pandya PA-C [facility] Work Phone: [phone] Miscellaneous Notes* Telephone Encounter - Yusef Pandya [...] Dr. Grigsby on 03/18 documented in this encounterCrystal Clinic Orthopedic Center08-20-2024 Telephone encounter Note * Telephone Encounter - Hannah Oglesby RN - 03/09/2024 11:10 AM EDT Pt here for PET today-wt decreased to 48 kg, states he has no appetite, not eating or drinking much . If agreeable please place IV fluid order for today while here for PET. Pt states fluids may 'perk me up F/u with Dr. Grigsby on 03/18 [facility]08-20-2024 History of Present illness Narrative* Hannah [...] radiation safety can be found usingthis link: [email or web address] SIGNATURE: RT Charis(Marcella) PATIENT NAME: Cristal Gu DATE: March 09, 2024 TIME: 10:38 AM PAGER/CONTACT #: documented in this encounterCrystal Clinic Orthopedic Center08-20-2024 [facility] Note[facility]-2024 Telephone encounter Note* Telephone Encounter - [place] Kearney - 03/02/2024 10:53 AM EDT Patient is scheduled with Dr Guaman in the [place] office on 03/09/2024 at 10 am per Tomasa from care everywhere. Spoke to patient & he stated he wasn't at home & was going to call us later to give us the appointment date & time of the ENT appointment. So, patient aware of appointment. MONA Hand [facility]08-13-2024 Miscellaneous Notes* Telephone Encounter - [place] Kearney - 03/02/2024 10:53 AM EDT Patient is scheduled with Dr Guaman in the [place] office on 03/09/2024 at 10 am per [...] - 02/24/2024 1:46 PM EDT Spoke to museum service scheduler at Dr Hayward's office at [phone] at [facility]. She needed the referral in order to get patient scheduled. Faxed referral order over to their office at [phone]. I will call the office back to [...] out? Denita Rai RN documented in this encounterCrystal Clinic Orthopedic Center08-12-2024 Telephone encounter Note * Telephone Encounter - Estella Fish APRN.CNP - 03/01/2024 3:22 PM EDT It has been over 90 days since I saw Maren, he has missed appts. I cn give him 7 days worth of meds, but he needs to see me before I can prescribe more. [facility]08-12-2024 Miscellaneous Notes* Telephone Encounter - Estella [...] Hernandes - 03/01/2024 12:03 PM EDT [facility] is calling today regarding Refill Request Patient has been identified by name and birthdate. Requesting delivery method: call/escript to: [facility] [place] Additional Concern: N/A Requesting response back: N/A [phone] (home) Get [facility] March 01, 2024 documented in this encounterCrystal Clinic Orthopedic Center08-12-2024 Telephone encounter Note * Telephone Encounter [...] Please review and advise. Arianna Saha RN [facility]08-12-2024 Telephone encounter Note* Telephone Encounter - Get Hernandes - 03/01/2024 12:03 PM EDT [facility] is calling today regarding Refill Request Patient has been identified by name and birthdate. Requesting delivery method: call/escript to: [facility]/ [place] Additional Concern: N/A Requesting response back: N/A [phone] (home) [facility] March 01, 2024 [facility]08-08-2024 Telephone encounter Note* Telephone Encounter - Bernadine Davis - 02/26/2024 10:16 AM EDT Spoke with Dr Douglas office he will be looking over his stuff today and then they will call patient to schedule [facility]08-07-2024 Telephone encounter Note* Telephone Encounter - Vanessa Carl - 02/25/2024 10:44 AM EDT Records faxed to Dr. Hayward. [facility]08-06-2024 Telephone encounter Note* Telephone Encounter - [place] Kearney - 02/24/2024 1:46 PM EDT Spoke to museum service scheduler at Dr Hayward's office at [phone] at [facility]. She needed the referral in order to get patient scheduled. Faxed referral order over to their office at [phone]. I will call the office back to check on status of appointment tomorrow or next day. MONA Hand [facility]08-06-2024 Telephone encounter Note* Telephone Encounter - Denita Rai RN - 02/24/2024 12:19 PM EDT Clerical: Please refer pt to ENT. Abnormal CT neck. Recommending scope. Pt would like seen JATINDER. Local or [facility]. Whichever can see him 1st. Denita Rai RN [facility]08-06-2024 Telephone encounter Note* Telephone Encounter - [...] since BRM is out? Denita Rai RN [facility]08-02-2024 Telephone encounter Note* Telephone Encounter - Paty Chapman APRN.CNP - 02/20/2024 2:51 PM EDT PDMP website checked and validated. All prescriptions have been APPROPRIATELY filled. No suspiciousactivity was identified. 02/20/2024 by Paty Chapman APRN.CNP [facility]08-02-2024 Miscellaneous Notes* Telephone Encounter - Paty Chapman APRN.CNP - 02/20/2024 2:51 PM EDT PDMP website checked and validated. All prescriptions have been APPROPRIATELY filled. No suspiciousactivity was identified. 02/20/2024 by Paty Chapman APRN.CNP * Telephone Encounter - Arianna Saha RN - 02/20/2024 1:44 PM EDT Tc spoke to Cristal Gu, He feels his pain in his arm is worse. Not new pain. Pain where he had radiation worse as they day goes on. Medication review: Lyrica- 75mg TID- stopped taking- needs refill never called when ran out. Oxycodone 10-20mg [id number] PRN- 3x per day 2 tabs at [...] Yolande Bishop - 02/20/2024 11:04 AM EDT [place] [facility] is calling today regarding Numbness and Med [...] birthdate. Requesting response back: call at home [phone] Yolande Bishop February 20, 2024 documented in this encounterCrystal Clinic Orthopedic Center08-02-2024 Telephone encounter Note * Telephone Encounter - Arianna Saha RN - 02/20/2024 1:44 PM EDT Tc spoke to Cristal Gu, He feels his pain in his arm is worse. Not new pain. Pain where he had radiation worse as they day goes on. Medication review: Lyrica- 75mg TID- stopped taking- needs refill never called when ran out. Oxycodone 10-20mg [id number] PRN- 3x per day 2 tabs at [...] Please review and advise. Arianna Saha RN [facility]08-02-2024 Telephone encounter Note* Telephone Encounter - [...] out of the office? Denita Rai RN [facility]08-02-2024 Miscellaneous Notes* Telephone Encounter - Denita [...] office? Denita Rai RN documented in this encounterCrystal Clinic Orthopedic Center08-02-2024 Telephone encounter Note * Telephone Encounter - Yolande Bishop - 02/20/2024 11:04 AM EDT [facility] is calling today regarding Numbness and Med [...] birthdate. Requesting response back: call at home [phone] Yolande Bishop February 20, 2024 [facility]08-01-2024 Telephone encounter Note* Telephone Encounter - Rolanda Arrington - 02/19/2024 1:55 PM EDT Called [facility] office. Patient is scheduled to see Dr Beyer on 03/02 @ 10:30. Rolanda Lawrence [facility]08-01-2024 Miscellaneous Notes* Telephone Encounter - Rolanda Arrington - 02/19/2024 1:55 PM EDT Called [facility] office. Patient is scheduled to see Dr Beyer on 03/02 @ 10:30. Rolanda Lawrence * Telephone Encounter - Rolanda Arrington - 02/18/2024 1:22 PM EDT Called [facility] office spoke with Emperatriz. She states she will reach out to patient this afternoon to get scheduled. Rolanda Lawrence * Telephone Encounter - Ernique Boland - 02/09/2024 10:42 AM EDT Confirmed referral was received at Vascular. They are currently working on referral and going to call patient. * [facility] - 02/05/2024 1:10 PM EDT Records re-faxed to [facility]. * Telephone Encounter - Rolanda Arrington - 02/05/2024 12:51 PM EDT Called [facility] they have not received this referral and asked us to please refax it tothem. Tomasa: Please refax this referral. Thank You, Rolanda Lawrence * Telephone Encounter - Vanessa Carl - 02/04/2024 3:47 PM EDT Records faxed to [facility]. * Telephone Encounter - Yusef Pandya PA-C - 02/04/2024 2:10 PM EDT Order was already placed Yusef Pandya PA-C * Telephone Encounter - Bernadine Davis - 02/04/2024 2:05 PM EDT Please send records to [facility] joseph * Telephone Encounter - Denita [...] EDT Patient will be going today to [place] for STAT US @ 2:00 pm. Lisa Figueroa documented in this encounterCrystal Clinic Orthopedic Center07-31-2024 Telephone encounter Note * Telephone Encounter - Rolanda Arrington - 02/18/2024 1:22 PM EDT [facility] office spoke with Emperatriz. She states she will reach out to patient this afternoon to get scheduled. Rolanda Lawrence [facility]07-31-2024 Telephone encounter Note* Telephone Encounter - [...] the pall med RNCC. Denita Rai RN [facility] Work Phone: [phone]) 213-487807-31-2024 Miscellaneous Notes* Telephone Encounter - Denita Rai [...] RNCC. Denita Rai RN documented in this encounterCrystal Clinic Orthopedic Center07-29-2024 Telephone encounter Note * Telephone Encounter - Nina Grigsby MD - 02/16/2024 4:59 PM EDT Agree the patient will need to be seen by pulmonary to determine the need and what type of home oxygen is indicated. [facility]07-29-2024 Miscellaneous Notes* Telephone Encounter - Nina Grigsby MD - 02/16/2024 4:59 PM EDT Agree the patient will need to be seen by pulmonary to determine the need and what type of home oxygen is indicated. * Telephone Encounter - Bernadine Rdoriguez RN - 02/16/2024 1:27 PM EDT Pt calls stating he would like home oxygen because his breathing treatments and steroids aren't making much of a difference in his breathing. These were prescribed by his PCP. Pt is scheduled for pulm at [facility] but not until the end of February. Encouraged pt to contact PCP for home oxygen, as well as afollow up from recent hospital visit and previous steroid orders by them. Pt verbalized understanding and states that makes jade sense to him anyhow. Please advise if you have other recommendations. Bernadine Rodriguez RN documented in this encounterCrystal Clinic Orthopedic Center07-29-2024 Telephone encounter Note * Telephone Encounter - Bernadine Rodriguez RN - 02/16/2024 1:27 PM EDT Pt calls stating he would like home oxygen because his breathing treatments and steroids aren't making much of a difference in his breathing. These were prescribed by his PCP. Pt is scheduled for pulm at [facility] but not until the end of February. Encouraged pt to contact PCP for home oxygen, as well as afollow up from recent hospital visit and previous steroid orders by them. Pt verbalized understanding and states that makes jade sense to him anyhow. Please advise if you have other recommendations. Bernadine Rodriguez RN [facility] Work Phone: [phone] Telephone encounter Note* Telephone Encounter - Enrique Boland - 02/16/2024 1:21 PM EDT Spoke to Pérez, gave him information on Pulmonogist appt in [place]. Transferred to Triage ( out of office) to ask about oxygen. [facility]07-29-2024 Miscellaneous Notes* Telephone Encounter - Enrique Boland - 02/16/2024 1:21 PM EDT Spoke to Pérez, gave him information on Pulmonogist appt in [place]. Transferred to Triage ( out of office) to ask about oxygen. * Telephone Encounter - [place] Kearney - 2024 8:42 AM EDT 3rd attempt to get a hold of patient to give date & time of appointment with [facility] Junior Paralegal,however no answer & vm full. [place] Kear[place] * Telephone Encounter - [place] Kearney - 02/12/2024 2:17 PM EDT Tried calling patient again no answer & vm full. [place] K[place] * Telephone Encounter - [place] Kearney - 02/12/2024 10:29 AM EDT Tried calling patient to give date & time of garden labourer appointment no answer & vm full.Will try back later. [place] Kear[place] * Telephone Encounter - [place] Kearney - 02/12/2024 10:20 AM EDT Spoke to Ton at [facility] Pulmonology in [place] at [phone] & scheduled the soonest appointment in [facility] on 03/15/2024@[address] Lucas. [place] Kearney * Telephone Encounter - Denita Rai RN - 02/10/2024 1:39 PM EDT Pt would prefer to see [facility] Junior Paralegal. Clerical: Please refer. Thanks! Denita Rai RN * Telephone Encounter - Nina Grigsby MD - 02/10/2024 1:38 PM EDT Order signed. Options would be Dr. Wilson at [facility] or Dr. Rene at [facility] Also we can refer him to [facility] pulmonary in [place]. * Telephone Encounter - Denita Rai RN - 02/10/2024 12:55 PM EDT Pt notified and verbalizes understanding. BRM: Pt asks if you will refer him to a garden labourer. Order pended if you approve. Denita Rai [...] recommendations? Denita Rai RN documented in this encounterCrystal Clinic Orthopedic Center07-26-2024 Telephone encounter Note * Telephone Encounter - [place] Kearney - 2024 8:42 AM EDT 3rd attempt to get a hold of patient to give date & time of appointment with [facility] Junior Paralegal,however no answer & vm full. [place] Kearney [facility]07-25-2024 Telephone encounter Note* Telephone Encounter - [place] Kearney - 02/12/2024 2:17 PM EDT Tried calling patient again no answer & vm full. [place] Kearney [facility]07-25-2024 Telephone encounter Note* Telephone Encounter - [place] Kearney - 02/12/2024 10:29 AM EDT Tried calling patient to give date & time of garden labourer appointment no answer & vm full.Will try back later. [place] Kearney [facility]07-25-2024 Telephone encounter Note* Telephone Encounter - [place] Kearney - 02/12/2024 10:20 AM EDT Spoke to Ton at [facility] Pulmonology in [place] at [phone] & scheduled the soonest appointment in [facility] on 03/15/2024@[address] Lucas. [place] Kearney [facility]07-23-2024 Telephone encounter Note* Telephone Encounter - Denita Rai RN - 02/10/2024 1:39 PM EDT Pt would prefer to see [facility] Junior Paralegal. Clerical: Please refer. Thanks! Denita Rai RN [facility]07-23-2024 Telephone encounter Note* Telephone Encounter - Nina Grigsby MD - 02/10/2024 1:38 PM EDT Order signed. Options would be Dr. Wilson at [facility] or Dr. Rene at [facility] Also we can refer him to [facility] pulmonary in [place]. [facility]07-23-2024 Telephone encounter Note* Telephone Encounter - Denita Rai RN - 02/10/2024 12:55 PM EDT Pt notified and verbalizes understanding. BRM: Pt asks if you will refer him to a garden labourer. Order pended if you approve. Denita Rai RN [facility]07-23-2024 Telephone encounter Note* Telephone Encounter - Nina Grigsby MD - 02/10/2024 11:50 AM EDT Agree with plan. Jeannie BRIke [facility]07-23-2024 Telephone encounter Note* Telephone Encounter - [...] have any other recommendations? Denita Rai RN [facility]07-22-2024 Telephone encounter Note* Telephone Encounter - Enrique Boland - 02/09/2024 10:42 AM EDT Confirmed referral was received at Vascular. They are currently working on referral and going to call patient. [facility]07-18-2024 Telephone encounter Note* Telephone Encounter - Vanessa Carl - 02/05/2024 1:10 PM EDT Records re-faxed to [facility]. [facility]07-18-2024 Telephone encounter Note* Telephone Encounter - Rolanda Arrington - 02/05/2024 12:51 PM EDT Called [facility] office they have not received this referral and asked us to please refax it tothem. Tomasa: Please refax this referral. Thank You, Rolanda Lawrence [facility]07-17-2024 Telephone encounter Note* Telephone Encounter - Vanessa Carl - 02/04/2024 3:47 PM EDT Records faxed to [facility]. [facility]07-17-2024 Telephone encounter Note* Telephone Encounter - Yusef Pandya PA-C - 02/04/2024 2:10 PM EDT Order was already placed Yusef Pandya PA-C [facility]07-17-2024 Telephone encounter Note* Telephone Encounter - Bernadine Davis - 02/04/2024 2:05 PM EDT Please send records to [facility] please [facility]07-17-2024 Telephone encounter Note* Telephone Encounter - Denita Rai RN - 02/04/2024 1:36 PM EDT Pt notified and agrees to vascular consult. WILIAM/Yusef: Order for consult pended. Clerical: Pt would prefer to see a local physician. Please refer him to Dr Beyer/Dr Sanchez's group. Dx: Left arm swelling. Periodic cyanosis and pain. Denita Rai RN [facility] Work Phone: [phone] Telephone encounter Note* Telephone Encounter - Denita Rai RN - 02/04/2024 9:02 AM EDT Call placed to pt. Message received stating the number has calling restrictions. Unable to leave a message. Denita Rai RN [facility]07-17-2024 Telephone encounter Note* Telephone Encounter - Yusef Pandya PA-C - 02/04/2024 8:10 AM EDT Please inform patient of results. He should likely see vascular due to the periodic cyanosis and pain and swelling to rule out any vascular issues. Yusef Pandya PA-C [facility]07-17-2024 Telephone encounter Note* Telephone Encounter - Denita Rai RN - 02/04/2024 7:59 AM EDT Yusef: US was negative for DVT or superficial thrombus. Report scanned. Denita Rai RN [facility]07-17-2024 Telephone encounter Note* Telephone Encounter - Vanessa Carl - 02/04/2024 7:56 AM EDT Report scanned. [facility]07-16-2024 Telephone encounter Note* Telephone Encounter - Denita Rai RN - 02/03/2024 4:33 PM EDT Tomasa: Please scan results when available. Thanks! Denita Rai RN [facility]07-16-2024 Telephone encounter Note* Telephone Encounter - Lisa Figueroa - 02/03/2024 12:13 PM EDT Patient will be going today to [place] for STAT US @ 2:00 pm. Lisa Figueroa [facility]07-16-2024 History of Present illness Narrative* Yusef Pandya PA-C - 02/03/2024 11:30 AM EDT PATIENT NAME: Cristal Gu DATE: 02/03/2024 PRIMARY CARE PHYSICIAN: Dr. Christina Azul OTHER PHYSICIANS: Dr. Verito Whelan, Dr. Marianne Fields, Dr. Damon Tse ([facility] ENT) Christina Tavarez (Elements copied from Dr. Grigsby's note dated December 23, 2023, have been reviewed and updated where appropriate, and all reflect current assessment and medical decision making during today's encounter, February 03, 2024) CC: This is a 68 year old male with metastatic lung cancer, seen for scheduled follow-up and continued treatment. INTERIM HISTORY: Okie returns for follow up. He remains on [...] (HCC) Peripheral arterial disease (HCC) 2019 R DIRECTOR NEWS stent PAST SURGICAL HISTORY: PAST SURGICAL HISTORY Procedure Laterality Date BACK SURGERY HX 2019 CABG (4) VEIN GRAFTS & ARTERIAL GRAFT(S) 2016 LOWER EXTREMITY CHANGE MANAGEMENT MANAGER W/WO STENT Right 2019 right common femoral [...] pulse is palpable and strong. PATHOLOGY: 10/21/2022 [id number] NGS analysis KRAS G12C mutation present, 5.2% [...] No hypermetabolic osseous lesions 01/03/2023 Chest CTA ([facility] [place]) Bilateral hilar soft tissue [...] prior study, as above. 04/12/2022 Bone scan ([facility]) Degenerative findings. No evidence of metastatic [...] uses Percocet as needed. Continue follow-up with [facility] palliative medicine. 7. Abnormal LFTs Labs from [...] which included preparing to see the patient, [id number] patient care, completing clinical documentation, performing a medically appropriate examination, counseling and educating the patient/family/caregiver, ordering medications, tests, or p rocedures, independently interpreting results (not separately reported), communicating results to the patient/family/caregiver, and care coordination (not separately reported). documented in this encounterCrystal Clinic [facility]07-16-2024 NoteSelect [facility]07-09-2024 Telephone encounter Note* Telephone Encounter - Yusef Pandya PA-C - 01/27/2024 4:27 PM EDT Lab orders placed Yusef Pandya PA-C' [facility]07-09-2024 Miscellaneous Notes* Telephone Encounter - Yusef Pandya PA-C - 01/27/2024 4:27 PM EDT Lab orders placed Yusef Pandya PA-C' * Telephone Encounter - Pavithra Jacinto MA - 01/27/2024 11:38 AM EDT Patient has an appt on 02/03/24. Would you like additional labs, if so place orders. Thanks. MICHOACANO Stephens documented in this encounterCrystal Clinic Orthopedic Center07-09-2024 Telephone encounter Note * Telephone Encounter - Pavithra Jacinto MA - 01/27/2024 11:38 AM EDT Patient has an appt on 02/03/24. Would you like additional labs, if so place orders. Thanks. MICHOACANO Stephens [facility]06-25-2024 Telephone encounter Note* Telephone Encounter - [...] Tapia RN January 13, 2024 1:19 PM [facility]06-25-2024 Miscellaneous Notes* Telephone Encounter - Julieth [...] pain regimen. Hannah SAMANIEGO documented in this encounterCrystal Clinic Orthopedic Center06-25-2024 Telephone encounter Note * Telephone Encounter - Hannah Ortiz - 01/13/2024 12:52 PM EDT Pérez calling regarding the fentanyl patches. He states that he hasn't used them, but states that the other medication is helping with the pain. He has to take the medication before he gets out of beddue to the pain. Patient needs clarification on pain regimen. Hannah SAMANIEGO [facility]06-21-2024 Note* Addendum Note - Estella Fish APRN.CNP - 01/09/2024 2:09 PM EDTAddended by: ESTELLA IFSH on: 01/09/2024 02:09 PM Modules accepted: Orders [facility]06-21-2024 Miscellaneous Notes* Addendum Note - Estella [...] would like it sent to [facility] pharmacy. Let him know it [...] Julieth Tapia RN * Telephone Encounter - Estlela Fish APRN.CNP - 01/09/2024 12:45 PM EDT [...] Trazodone 50 mg tablets to his [facility] for insomnia. Let him know to [...] mg at bedtime. Sent to [facility] in [place] * Telephone Encounter - Bernadine Rodriguez RN - 01/09/2024 10:39 AM EDT Pt calls stating he's been having problems sleeping and would like something for this. States I'vetried it all when asked if he's tried melatonin, tylenol pm, or benadryl. Please advise Bernadine Rodriguez RN documented in this encounterCrystal Clinic Orthopedic Center06-21-2024 Note* Addendum Note - Julieth Tapia RN - 01/09/2024 1:20 PM EDTAddended by: JULIETH TAPIA on: 01/09/2024 01:20 PM Modules accepted: Orders [facility]06-21-2024 Telephone encounter Note* Telephone Encounter - [...] would like it sent to [facility] pharmacy. Let him know it [...] Please review and advise. Julieth Tapia RN [facility]06-21-2024 Telephone encounter Note* Telephone Encounter - [...] and not have end of dose pain [facility]06-21-2024 Telephone encounter Note* Telephone Encounter - [...] Trazodone 50 mg tablets to his [facility] for insomnia. Let him know to [...] Tapia RN January 09, 2024 11:47 AM [facility]06-21-2024 Telephone encounter Note* Telephone Encounter - Estella Fish APRN.RONAL - 01/09/2024 11:27 AM EDT We can try Trazodone 50 mg at bedtime. Sent to [facility] in [place] [facility]06-21-2024 Telephone encounter Note* Telephone Encounter - Bernadine Rodriguez RN - 01/09/2024 10:39 AM EDT Pt calls stating he's been having problems sleeping and would like something for this. States I'vetried it all when asked if he's tried melatonin, tylenol pm, or benadryl. Please advise Bernadine Rodriguez RN T [facility] Work Phone: [phone]) 290-196806-07-2024 Telephone encounter Note* Telephone Encounter - Julieth [...] having contact numbers for the office and glass ribbon machine operator assistant. Julieth Tapia RN December 26, 2023 3:06 PM [facility]06-07-2024 Miscellaneous Notes* Telephone Encounter - Julieth [...] having contact numbers for the office and glass ribbon machine operator assistant. Julieth Tapia RN December 26, 2023 3:06 PM * Telephone Encounter - Yolande Bishop - 12/26/2023 1:21 PM EDT [facility] is calling today regarding Insurance Authorization for oxycodone. Patient states thepharmacy also told him he needs something else but he could not remember. Patient has been identified by name and birthdate. Requesting response back: N/A, no action needed [phone] (cell) Yolande Bishop December 26, 2023 documented in this encounterCrystal Clinic Orthopedic Center06-07-2024 Miscellaneous Notes* Telephone Encounter - Julieth Tapia RN - 12/26/2023 2:29 PM EDT Prior Authorization Documentation Prior authorization requested for: MEDICATION Oxycodone IR 10 mg tablets Submitted via Cover [employer] [id number] Insurance Company Name: [email or web address] Pharmacy Name: [facility] and Authorization approval #: AWAITING DETERMINATION Dates of Approval: from ? to ? Patient Assistance Needed: No Time Spent 10 Julieth Tapia RN December 26, 2023 documented in this encounterCrystal Clinic Orthopedic Center06-07-2024 Telephone encounter Note * Telephone Encounter - Julieth Tapia RN - 12/26/2023 2:29 PM EDT Prior Authorization Documentation Prior authorization requested for: MEDICATION Oxycodone IR 10 mg tablets Submitted via Cover [employer] [id number] Insurance Company Name: [email or web address] Pharmacy Name: [facility] and Authorization approval #: AWAITING DETERMINATION Dates of Approval: from ? to ? Patient Assistance Needed: No Time Spent 10 Julieth Tapia RN December 26, 2023 [facility]06-07-2024 Telephone encounter Note* Telephone Encounter - Julieth Tapia RN - 12/26/2023 1:49 PM EDT Prior Authorization Documentation Prior authorization requested for: MEDICATION Pregablin 75 mcg capsules Submitted via Cover [employer] [id number] Insurance Company Name: [employer] Pharmacy Name: [facility] and pproved today Your request has been approved Authorization Expiration Date: 12/26/2023- 07/20/2024. Pharmacy updated. Time Spent 10 Julieth Tapia RN December 26, 2023 [facility]06-07-2024 Miscellaneous Notes* Telephone Encounter - Julieth Tapia RN - 12/26/2023 1:49 PM EDT Prior Authorization Documentation Prior authorization requested for: MEDICATION Pregablin 75 mcg capsules Submitted via Cover [employer] [id number] Insurance Company Name: [employer] Pharmacy Name: [facility] and pproved today Your request has been approved Authorization Expiration Date: 12/26/2023- 07/20/2024. Pharmacy updated. Time Spent 10 Julieth Tapia RN December 26, 2023 documented in this encounterCrystal Clinic Orth[facility] Center06-07-2024 Telephone encounter Note * Telephone Encounter - Yolande Bishop - 12/26/2023 1:21 PM EDT [facility] is calling today regarding Insurance Authorization for oxycodone. Patient states thepharmacy also told him he needs something else but he could not remember. Patient has been identified by name and birthdate. Requesting response back: N/A, no action needed [phone] (cell) Yolande Bishop December 26, 2023 [facility]06-07-2024 Telephone encounter Note* Telephone Encounter - [...] and Oxy were sent to his [facility] pharmacy. Nurse encouraged patient to call with any questions/concerns/symptom related issues. Patient confirmed having contact numbers for the office and glass ribbon machine operator assistant. [facility]06-07-2024 Miscellaneous Notes* Telephone Encounter - Julieth [...] and Oxy were sent to his [facility] pharmacy. Nurse encouraged patient to call with any questions/concerns/symptom related issues. Patient confirmed having contact numbers for the office and glass ribbon machine operator assistant. * Addendum Note - Estella Fish APRN.CNP [...] 8:19 AM EDT Care Coordination Triage Note [facility] Situation: Received page that patient called saying [...] 26, 2023 8:19 AM documented in this encounterCrystal Clinic Orthopedic Center06-07-2024 Note* Addendum Note - Estella Fish APRN.CNP - 12/26/2023 12:23 PM EDTAddended by: ESTELLA FISH on: 12/26/2023 12:23 PM Modules accepted: Orders [facility]06-07-2024 Telephone encounter Note* Telephone Encounter - [...] every 4 hours - Agree with Dex [facility]06-07-2024 Telephone encounter Note* Telephone Encounter - Denita Rai RN - 12/26/2023 11:00 AM EDT Pt notified, verbalizes understanding, and states that he has plenty of dex at home. Denita Rai RN [facility] Work Phone: [phone] Telephone encounter Note* Telephone Encounter - Denita Rai RN - 12/26/2023 10:59 AM EDT Images from the original note were not included. Hector Limon MD You5 minutes ago (10:53 AM) Yes seemed to work before. Thank.s [facility]06-07-2024 Telephone encounter Note* Telephone Encounter - Denita Rai RN - 12/26/2023 10:46 AM EDT Pt was originally on Dexamethasone 4 mg BID. Is this the dose you'd like him resume? Denita Rai RN [facility]06-07-2024 Telephone encounter Note* Telephone Encounter - Denita Rai RN - 12/26/2023 10:46 AM EDT Images from the original note were not included. Hector Limon MD You; Radt [facility] Rad Nurse Pool4 minutes ago (10:41 AM) Consider reinitiating steroids. Radiation may have ongoing improvement with time. 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 [facility]06-07-2024 Telephone encounter Note* Telephone Encounter - Denita Rai RN - 12/26/2023 8:50 AM EDT JEROME: Please see Julieth's message below. Thank you! Denita Rai RN [facility]06-07-2024 Telephone encounter Note* Telephone Encounter - Julieth Tapia RN - 12/26/2023 8:19 AM EDT Care Coordination Triage Note [facility] Situation: Received page that patient called saying [...] Tapia RN December 26, 2023 8:19 AM [facility]06-05-2024 Telephone encounter Note* Telephone Encounter - Denita Rai RN - 12/24/2023 2:03 PM EDT Pt notified of script. Denita Rai RN [facility] Work Phone: [phone] Miscellaneous Notes* Telephone Encounter - Denita Rai [...] advise. Denita Rai RN documented in this encounterCrystal Clinic Orthopedic Center06-05-2024 Telephone encounter Note * Telephone Encounter - Denita Rai RN - 12/24/2023 11:34 AM EDT Patient phones requesting refills as follows: Requested Prescriptions Pending Prescriptions Disp Refills levothyroxine (SYNTHROID) 75 mcg tablet 30 tablet 1 Sig: Take 1 tablet by mouth once daily. Please review and advise. Denita Rai RN [facility]06-05-2024 History of Present illness Narrative* Hector Limon MD - 12/24/2023 12:00 AM EDT [facility] Radiation Oncology Department RADIATION ONCOLOGY - COMPLETION NOTE PATIENT: CRISTAL GUDOB: 1955 DATES OF TREATMENT: 12/10/2023 to 12/24/2023 DIAGNOSIS: Lung cancer, left upper lobe, pleomorphic carcinoma, stage IIb [id number], stage IIB AJCC 8th edition (chest wall invasion), PD-L1 95%, KRAS G12C mutation present AREA TREATED: Right Oropharynx [place] DELIVERED DOSE: Area: Right Oropharynx with daily [...] follow-up. Staff Physician Erasto Limon M.D. / SAVANNA 43:38 PM Electronically Signed cc: Dr. Seb Falk , , , , . documented in this encounterCrystal Clinic Orthopedic Center06-05-2024 NoteSelect Medical Specialty [facility]06-03-2024 NoteSelect Medical Specialty Hospital - [facility]06-03-2024 History of Present illness Narrative* Nina Grigsby MD - 12/22/2023 10:26 PM EDT PATIENT NAME: Cristal Gu DATE: 12/23/2023 PRIMARY CARE PHYSICIAN: Dr. Christina Azul OTHER PHYSICIANS: Dr. Verito Whelan, Dr. Marianne Fields, Dr. Damon Tse ([facility]) Christina Tavarez Portions of this encounter [...] (HCC) Peripheral arterial disease (HCC) 2019 R DIRECTOR NEWS stent PAST SURGICAL HISTORY: PAST SURGICAL HISTORY Procedure Laterality Date BACK SURGERY HX 2019 CABG (4) VEIN GRAFTS & ARTERIAL GRAFT(S) 2016 LOWER EXTREMITY CHANGE MANAGEMENT MANAGER W/WO STENT Right 2019 right common femoral [...] involving face and upper back. PATHOLOGY: 10/21/2022 [id number] NGS analysis KRAS G12C mutation present, 5.2% [...] No hypermetabolic osseous lesions 01/03/2023 Chest CTA ([facility] [place]) Bilateral hilar soft tissue [...] prior study, as above. 04/12/2022 Bone scan ([facility]) Degenerative findings. No evidence of metastatic [...] underwent a repeat chest CT 10/21/2023 w [facility] revealed slight growth of several pulm nodules, [...] tonsil. The patient was initially seen by [facility] on 07/26/2021, and clinical evaluation was most consistent with inflammatory/post-infectious findings. The patient was advised to stop chewing tobacco and continue close observation. Follow-up PET 05/12/2023 revealed significant increased size and metabolism of the right tonsillar mass. The patient was reevaluated by [facility] May 2023 and it was felt [...] 2015. Status post CABG x 4 in [place] 2015. Currently stable. Continue management per PCP/cardiology. [...] uses Percocet as needed. Continue follow-up with [facility] palliative medicine. 7. Abnormal LFTs Labs from [...] accordingly. 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 Hector Limon MD documented in this encounterCrystal Clinic Orthopedic Center05-29-2024 Telephone encounter Note * Telephone Encounter [...] Tapia RN December 17, 2023 9:03 AM [facility]05-29-2024 Miscellaneous Notes* Telephone Encounter - Julieth [...] advise. Rosibel Wheeler RN documented in this encounterCrystal Clinic Orthopedic Center05-28-2024 Telephone encounter Note * Telephone Encounter [...] pain returns. Please advise. 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 Continue follow-up with palliative for pain control. Will lower his Decadron from 4 mg twice daily to a dose of 4 mg daily. Hector Limon MD documented in this encounterCrystal Clinic Orthopedic Center05-22-2024 NoteSelect Medical Specialty [facility]05-22-2024 History of Present illness Narrative* Hector Limon [...] prescribed. Hector Limon MD documented in this encounterCrystal Clinic Orthopedic Center05-20-2024 NoteHNO ID: [id number] Author: Hector LIMON MD Service: ? Author Type: Physician Type: Progress Notes Filed: 12/08/2023 10:05 Note Text: [facility]05-20-2024 History of Present illness Narrative* Hector Limon MD - 12/08/2023 10:04 AM EDT sim documented in this encounterCrystal Clinic Orthopedic Center05-15-2024 Telephone encounter Note * Telephone Encounter [...] Dr. Limon. Patient states last dose of [id number] 2 tabs was at 0900. SIM was [...] him he needs to contact Christina with [facility] if his pain medication is not effective. He said when he's at home resting his pain is controlled with what is prescribed. He said he is aware to call Christina if needed for medication adjustment and has her phone number. He is scheduled to start radiation therapy 12/10/23. Thanks Rosibel Wheeler RN [facility]05-15-2024 Miscellaneous Notes* Telephone Encounter - Rosibel [...] Dr. Limon. Patient states last dose of [id number] 2 tabs was at 0900. SIM was [...] him he needs to contact Christina with [facility] if his pain medication is not effective. He said when he's at home resting his pain is controlled with what is prescribed. He said he is aware to call Christina if needed for medication adjustment and has her phone number. He is scheduled to start radiation therapy 12/10/23. Thanks Rosibel Wheeler RN documented in this encounterCrystal Clinic Orthopedic Center05-15-2024 History of Present illness Narrative* Hector Limon MD - 12/03/2023 12:00 AM EDT CRISTAL GU [id number] 12/03/2023 [facility] Radiation Oncology Department SIMULATION NOTE DATE OF SIMULATION: 12/03/2023 THERAPIST: Sapna Severino MACHINE: [employer] DIAGNOSIS: Malignant neoplasm of upper lobe, left [...] / CDT 42:54 PM documented in this encounterCrystal Clinic Orthopedic Center05-15-2024 History of Present illness Narrative* Hector Limon MD - 12/03/2023 12:00 AM EDT CRISTAL GU [id number] 12/03/2023 [facility] Department of Radiation Oncology Treatment Planning [...] Limon M.D. 2:46 PM documented in this encounterCrystal Clinic Orthopedic Center05-15-2024 NoteSelect Medical Specialty [facility] - [facility]05-15-2024 NoteSelect [facility] Specialty [facility]05-14-2024 NoteSelect [facility] Specialty [facility] - [place]05-14-2024 History of Present illness Narrative* Hector Limon MD - 12/02/2023 11:14 AM EDT Radiation Oncology - Follow Up Note PATIENT NAME: Cristal Gu PATIENT DIAGNOSIS: Lung cancer, left upper lobe, pleomorphic carcinoma, stage IIb [id number], stage IIB AJCC 8th edition (chest wall [...] left upper lobe, pleomorphic carcinoma, stage IIb [id number], stage IIB AJCC 8th edition (chest wall [...] by: Hector Limon MD cc: Christina Azul [address] [place] [address] documented in this encounterCrystal Clinic Orthopedic Center05-13-2024 NoteSelect Medical Specialty [facility] - [place]05-13-2024 History of Present illness Narrative* Nina Grigsby MD - 12/01/2023 9:00 PM EDT PATIENT NAME: Cristal Gu DATE: 12/02/2023 PRIMARY CARE PHYSICIAN: Dr. Christina Azul OTHER PHYSICIANS: Dr. Verito Whelan, Dr. Marianne Fields, Dr. Damon Tse ([facility]) Christina Tavarez Portions of this encounter [...] (HCC) Peripheral arterial disease (HCC) 2019 R DIRECTOR NEWS stent PAST SURGICAL HISTORY: PAST SURGICAL HISTORY Procedure Laterality Date BACK SURGERY HX 2019 CABG (4) VEIN GRAFTS & ARTERIAL GRAFT(S) 2016 LOWER EXTREMITY CHANGE MANAGEMENT MANAGER W/WO STENT Right 2019 right common femoral [...] involving face and upper back. PATHOLOGY: 10/21/2022 [id number] NGS analysis KRAS G12C mutation present, 5.2% [...] No hypermetabolic osseous lesions 01/03/2023 Chest CTA ([facility] [place]) Bilateral hilar soft tissue [...] prior study, as above. 04/12/2022 Bone scan ([facility]) Degenerative findings. No evidence of metastatic [...] the patient will continue as is with Kimberli. I will see him back in 3 weeks for follow-up. If in agreement we will then discuss other systemic treatment options including chemo +/- immunotherapy. He will also follow-up with [facility] palliative medicine to discuss more aggressive pain medications. 2. Carcinoma of the right tonsil Baseline PET and CT neck revealed suspicious abnormalities in the right tonsil. The patient was initially seen by [facility] on 07/26/2021, and clinical evaluation was most consistent with inflammatory/post-infectious findings. The patient was advised to stop chewing tobacco and continue close observation. Follow-up PET 05/12/2023 revealed significant increased size and metabolism of the right tonsillar mass. The patient was reevaluated by [facility] May 2023 and it was felt [...] uses Percocet as needed. Continue follow-up with [facility] palliative medicine. 7. Abnormal LFTs Labs from [...] accordingly. Nina Grigsby MD documented in this encounterCrystal Clinic Orthopedic Center05-07-2024 NoteSelect Medical Specialty [facility] - [place]05-07-2024 History of Present illness Narrative* Deborah Warner RN - 11/25/2023 11:05 AM EDT Pt here for PET scan. States has not been eating or drinking much doesn't have an appetite and feels weak. Denies N/V/D. Dr. Grigsby aware and Whitney Rai RNCC updated. New orders for 1 L NS over 1 hr. Pt states understanding with POC. Deborah Warner RN documented in this encounterCrystal Clinic Orthopedic Center05-07-2024 History of Present illness Narrative* Olga Lidia Rosas RN - 11/25/2023 11:00 AM EDTSummary: [id number] [id number] Informed Consent CASE [id number] (IRB [id number]): Tissue [...] RN Clinical Research Nurse documented in this encounterCrystal Clinic Orthopedic Center05-07-2024 [facility]05-07-2024 History of Present illness Narrative* Deborah [...] 25, 2023 TIME: 10:54 AM * Denita Yang RT(R) - 11/25/2023 10:45 AM EDT RADIOLOGY SERVICE PROGRESS NOTE SERVICE DATE: 11/25/2023 SERVICE TIME: 11:04 AM PATIENT IDENTITY VERIFICATION COMPLETED USING TWO (2) STANDARD IDENTIFIERS: Name and Date of confirmed by patient verbally POST EXAM PIV STATUS: Discontinued PROCEDURE TYPE: NM INJECT: PET/CT BODY SCAN. 6.6 mCi F18 FDG. No other medications given.. ADMINISTRATION TIME: 1058 PATIENT DISCHARGED TO: Ambulatory patient, left [place] department area. A Diagnostic radioactive procedure has taken place, with no further precautions necessary other than routine body substance precautions. More information regarding radiation safety can be found usingthis link: [email or web address] SIGNATURE: RT Charis(R) PATIENT NAME: Cristal Gu DATE: November 25, 2023 TIME: 11:04 AM PAGER/CONTACT #: documented in this encounterCrystal Clinic Orthopedic Center05-07-2024 NoteSelect [facility]ty [facility]05-07-2024 NoteSelect [facility]ty [facility]05-06-2024 Telephone encounter Note* Telephone Encounter - Hannah Oglesby RN - 11/24/2023 9:47 AM EDT Please sign pended labs if agreeable-will draw with PET tomorrow. F/U with you 12/01 Thank You! Hannah Oglesby RN [facility]05-06-2024 Miscellaneous Notes* Telephone Encounter - Hannah Oglesby RN - 11/24/2023 9:47 AM EDT Please sign pended labs if agreeable-will draw with PET tomorrow. F/U with you 12/01 Thank You! Hannah Oglesby RN documented in this encounterCrystal Clinic [facility]05-03-2024 Instructions* Patient Instructions* Estella Fish APRN.CNP - 11/21/2023 10:25 AM EDT Estella Fish CNP Department of Palliative and Supportive Care Palliative Care - Specialty services in symptom management and support For questions or prescription refills, call: [phone] Friday - Friday 9AM-5PM LASHAY Evans, RN - Flash Drier Operator Please call 3-5 days in advance for medication refills Evenings, Weekends, Holidays: [phone] (ask for palliative medicine on-call provider) For appointments, cancellations or reschedule, call: [phone] documented in this encounterCrystal Clinic Orthopedic Center05-03-2024 History of Present illness Narrative* Estella [...] a day, 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 He has been [...] helpful for pain and anxiety. Modified ESAS ([place] Symptom Assessment Scale) Information Provided By: Patient [...] ear normal. Nose: Nose normal. Mouth/Throat: Lips: [place]. Mouth: Mucous membranes are moist. No oral [...] suspiciousactivity was identified. 11/21/2023 by Estella Fish, SERVICE PROVIDER, CONCERT MANAGER.TYPEWRITER TESTER Urine Screen Lab Results Component Value Date UAMPH Negative 09/26/2021 UBARB2 Negative 09/26/2021 UBENZ Negative 09/26/2021 UCOC2 Negative 09/26/2021 UOPI Negative 09/26/2021 UOXYC Negative 09/26/2021 UPCP Negative 09/26/2021 UTHC Negative 09/26/2021 UETOH <11 09/26/2021 Assessment & Plan (Z51.5) Palliative care by specialist (primary encounter diagnosis) - Reviewed philosophy of palliative medicine - Discussed services offered by [employer] - Provided support -Discussed services offered by palliative medicine and how to contact us (P76.55) Primary malignant neoplasm of left lung metastatic [...] 6-8 Weeks in person Estella Fish NP, CONCERT MANAGER.TYPEWRITER TESTER November 21, 2023 9:44 AM This note may have been partially generated using the [employer] voice recognition system. While every effort was made to correct voice recognition errors, kindly be aware that some errors may occasionally occur. documented in this encounterCrystal Clinic Orth[facility]05-03-2024 NoteSelect [facility]04-[facility]24 Telephone encounter Note* Telephone Encounter - Denita [...] Call transferred to MONA Muhammad, for scheduling. eDnita Rai RN [facility] Work Phone: 1(747) 906-829304-23-2024 Miscellaneous Notes* Telephone Encounter - Denita Rai [...] transferred to MONA Muhammad, for scheduling. Denita Rai RN documented in this encounterCrystal Clinic Orthopedic Center04-17-2024 Miscellaneous Notes* Telephone Encounter - Denita [...] message. Denita Rai RN documented in this encounterCrystal Clinic Orthopedic Center04-16-2024 Miscellaneous Notes* Telephone Encounter - Maricruz Lopes [...] kidney function are stable. documented in this encounterCrystal Clinic Orthopedic Center04-16-2024 NoteSelect [facility]04-16-2024 History of Present illness Narrative* Katherine Dominique, OSCAR - 11/04/2023 10:36 AM EDT Oncology [...] diet such as recommendations from [employer] [place] [employer] focusing on lean proteins, whole grains, [...] learning: None Educational materials provided: [employer] [place] [employer], Heart Healthy Plate Anthropometrics: Height: Last [...] Dosing Weight: 56.3 kg Estimated kilocalorie needs: 4313-7914 kilocalories determined by 30-35 kcal/kg Estimated protein needs: 56-84 grams determined by 1.0-1.5 g/kg Dosing weight Estimated fluid needs: ~5932-5808 milliliters based on 1 mL per kcal [...] Murphy MS, RDN, LD documented in this encounterCrystal Clinic Orthopedic Center04-15-2024 NoteSelect [facility] [place]04-15-2024 History of Present illness Narrative* Nina Grigsby MD - 11/03/2023 8:46 PM EDT PATIENT NAME: Cristal Gu DATE: 11/04/2023 PRIMARY CARE PHYSICIAN: Dr. Christina Azul OTHER PHYSICIANS: Dr. Verito Whelan, Dr. Marianne Fields, Dr. Damon Tse ([facility]) Christina Tavarez Portions of this encounter [...] (HCC) Peripheral arterial disease (HCC) 2019 R DIRECTOR NEWS stent PAST SURGICAL HISTORY: PAST SURGICAL HISTORY Procedure Laterality Date BACK SURGERY HX 2019 CABG (4) VEIN GRAFTS & ARTERIAL GRAFT(S) 2016 LOWER EXTREMITY CHANGE MANAGEMENT MANAGER W/WO STENT Right 2019 right common femoral [...] involving face and upper back. PATHOLOGY: 10/21/2022 [id number] NGS analysis KRAS G12C mutation present, 5.2% [...] No hypermetabolic osseous lesions 01/03/2023 Chest CTA ([facility]) Bilateral hilar soft tissue [...] prior study, as above. 04/12/2022 Bone scan ([facility]) Degenerative findings. No evidence of metastatic [...] tonsillar mass. The patient was reevaluated by [facility] May 2023 and it was felt [...] 2015. Status post CABG x 4 in [place] 2015. Currently stable. Continue management per PCP/cardiology. [...] uses Percocet as needed. Continue follow-up with [facility] palliative medicine. 7. Abnormal LFTs Labs from [...] accordingly. Nina Grigsby MD documented in this encounterCrystal Clinic Orthopedic Center04-02-2024 History of Present illness Narrative* Hannah Oglesby [...] 21, 2023 TIME: 10:56 AM * Alethea Mckeon RT(R) - 10/21/2023 2:15 PM EDT Radiology [...] PATIENT PRESENTS WITH AN IMPLANTABLE OR ATTACHED CAMERA ENGINEER: No RADIOLOGY DEPARTMENT: CT; Exam(s) Completed: Chest PERIPHERAL IV DATA: Site assessment: Clean,Dry and Intact, Site disposition Discontinued 22g right ac SIGNED BY: RT Tavo(R) October 21, 2023 11:24 AM documented in this encounterCrystal Clinic Orthopedic Center04-02-2024 NoteSelect [facility]04-02-2024 NoteSelect [facility] [place]04-02-2024 Miscellaneous Notes * Telephone Encounter - Estella [...] have left at home documented in this encounterCrystal Clinic Orthopedic Center04-01-2024 NoteSelect [facility] - [place]04-01-2024 History of Present illness Narrative* Nina Grigsby MD - 10/20/2023 5:22 AM EDT PATIENT NAME: Cristal Gu DATE: 10/20/2023 PRIMARY CARE PHYSICIAN: Dr. Christina Azul OTHER PHYSICIANS: Dr. Verito Whelan, Dr. Marianne Fields, Dr. Damon Tse ([facility]) Dr. Limon, Christina Fish Portions of [...] (HCC) Peripheral arterial disease (HCC) 2019 R DIRECTOR NEWS stent PAST SURGICAL HISTORY: PAST SURGICAL HISTORY Procedure Laterality Date BACK SURGERY HX 2019 CABG (4) VEIN GRAFTS & ARTERIAL GRAFT(S) 2016 LOWER EXTREMITY CHANGE MANAGEMENT MANAGER W/WO STENT Right 2019 right common femoral [...] involving face and upper back. PATHOLOGY: 10/21/2022 [id number] NGS analysis KRAS G12C mutation present, 5.2% [...] No hypermetabolic osseous lesions 01/03/2023 Chest CTA ([facility]) Bilateral hilar soft tissue [...] prior study, as above. 04/12/2022 Bone scan ([facility]) Degenerative findings. No evidence of metastatic [...] tonsil. The patient was initially seen by [facility] on 07/26/2021, and clinical evaluation was most consistent with inflammatory/post-infectious findings. The patient was advised to stop chewing tobacco and continue close observation. Follow-up PET 05/12/2023 revealed significant increased size and metabolism of the right tonsillar mass. The patient was reevaluated by [facility] May 2023 and it was felt [...] uses Percocet as needed. Continue follow-up with [facility] palliative medicine. 7. Abnormal LFTs Labs from [...] accordingly. Nina Grigsby MD documented in this encounterCrystal Clinic Orthopedic Center03-04-2024 NoteSelect [facility] Specialty [facility] - [place]03-04-2024 History of Present illness Narrative* Dominique Murphy RD - 09/22/2023 10:07 AM EST Oncology Nutrition Therapy Reassessment Patient left after office visit with physician and did not stay for scheduled dietitian appointment. Signed by: Dominique Murphy MS, RDN, LD documented in this encounterCrystal Clinic Orthopedic Center03-04-2024 NoteSelect [facility]ty [facility] - [place]03-04-2024 History of Present illness Narrative* Nina Grigsby MD - 09/22/2023 5:35 AM EST PATIENT NAME: Cristal Gu DATE: 09/22/2023 PRIMARY CARE PHYSICIAN: Dr. Christina Azul OTHER PHYSICIANS: Dr. Verito Whelan, Dr. Marianne Fields, Dr. Damon Tse ([facility]) Christina Tavarez Portions of this encounter [...] (HCC) Peripheral arterial disease (HCC) 2019 R DIRECTOR NEWS stent PAST SURGICAL HISTORY: PAST SURGICAL HISTORY Procedure Laterality Date BACK SURGERY HX 2019 CABG (4) VEIN GRAFTS & ARTERIAL GRAFT(S) 2016 LOWER EXTREMITY CHANGE MANAGEMENT MANAGER W/WO STENT Right 2019 right common femoral [...] involving face and upper back. PATHOLOGY: 10/21/2022 [id number] NGS analysis KRAS G12C mutation present, 5.2% [...] No hypermetabolic osseous lesions 01/03/2023 Chest CTA ([facility]) Bilateral hilar soft tissue [...] prior study, as above. 04/12/2022 Bone scan ([facility]) Degenerative findings. No evidence of metastatic [...] tonsil. The patient was initially seen by [facility] on 07/26/2021, and clinical evaluation was most consistent with inflammatory/post-infectious findings. The patient was advised to stop chewing tobacco and continue close observation. Follow-up PET 05/12/2023 revealed significant increased size and metabolism of the right tonsillar mass. The patient was reevaluated by [facility] May 2023 and it was felt [...] uses Percocet as needed. Continue follow-up with [facility] palliative medicine. 7. Abnormal LFTs Labs from [...] wellbeing. Nina Grigsby MD documented in this encounterCrystal Clinic Orthopedic Center02-26-2024 History of Present illness Narrative* Denita Yang, RT(R) - 09/15/2023 12:45 PM EST RADIOLOGY SERVICE PROGRESS NOTE SERVICE DATE: 09/15/2023 SERVICE TIME: 12:59 PM PATIENT IDENTITY VERIFICATION COMPLETED USING TWO (2) STANDARD IDENTIFIERS: Name and Date of confirmed by patient verbally FALL SCREENING: Has the patient had 2 falls in the last year or 1 fall with injury or currently using an Ambulatory Assistive Device (Walker, Cane, Wheelchair, Crutches, etc.)? No PATIENT GENDER DATA: .male ALLERGIES: Reviewed and unchanged MEDICATIONS REVIEWED: Not applicable PATIENT RELEVANT IMPLANT DATA REVIEWED: Not Applicable PATIENT PRESENTS WITH AN IMPLANTABLE OR ATTACHED CAMERA ENGINEER: No CREATININE: Creatinine Date Value Ref Range Status 08/25/2023 1.19 0.73 - 1.22 mg/dL Final 06/30/2023 1.34 (H) 0.73 - 1.22 mg/dL Final 06/02/2023 0.90 0.73 - 1.22 mg/dL Final Estimated Glomerular Filtration Rate Date Value Ref Range Status 08/25/2023 67 >=60 mL/min/1.73m Final Comment: Estimated Glomerular Filtration [...] RESULTS: POC done: Yes, See Lab Tab September 15, [address] PERFORMED: No IV SITE: Ambulatory: A peripheral IV was started in the Right antecubital site with a Angio cath: 22 gauge. POST EXAM PIV STATUS: Discontinued PROCEDURE TYPE: NM INJECT: PET/CT BODY SCAN. 7.2 mCi F18 FDG. No other medications given.. ADMINISTRATION TIME: 1246 PATIENT DISCHARGED TO: Ambulatory patient, left [place] department area. A Diagnostic radioactive procedure has taken place, with no further precautions necessary other than routine body substance precautions. More information regarding radiation safety can be found usingthis link: [email or web address] SIGNATURE: RT Charis(Marcella) PATIENT NAME: Cristal Gu DATE: September 15, 2023 TIME: 12:59 PM PAGER/CONTACT #: documented in this encounterCrystal Clinic Orthopedic Center02-26-2024 NoteSelect Medical Specialty [facility]02-07-2024 Miscellaneous Notes* Telephone Encounter - Patricia Miller APRN.RONAL - 08/27/2023 11:22 AM EST The following [...] a new prescription be sent to [facility] in [place]. WILIAM/Patricia: script pended. Denita Rai RN * [...] TFTs on return visit. documented in this encounterCrystal Clinic Orthopedic Center02-05-2024 NoteSelect [facility]ty [facility]02-05-2024 History of Present illness Narrative* Nina Grigsby MD - 08/25/2023 6:17 AM EST PATIENT NAME: Cristal Gu DATE: 08/25/2023 PRIMARY CARE PHYSICIAN: Dr. Christina Azul OTHER PHYSICIANS: Dr. Verito Whelan, Dr. Marianne Fields, Dr. Damon Paynes ([facility]) Dr. Limon Portions of this encounter [...] in the area after using a metal stock mover . With recent antibiotics his skin lesions [...] (HCC) Peripheral arterial disease (HCC) 2019 R DIRECTOR NEWS stent PAST SURGICAL HISTORY: PAST SURGICAL HISTORY Procedure Laterality Date BACK SURGERY HX 2019 CABG (4) VEIN GRAFTS & ARTERIAL GRAFT(S) 2016 LOWER EXTREMITY CHANGE MANAGEMENT MANAGER W/WO STENT Right 2019 right common femoral [...] involving face and upper back. PATHOLOGY: 10/21/2022 [id number] NGS analysis KRAS G12C mutation present, 5.2% [...] No hypermetabolic osseous lesions 01/03/2023 Chest CTA ([facility]) Bilateral hilar soft tissue [...] prior study, as above. 04/12/2022 Bone scan ([facility]) Degenerative findings. No evidence of metastatic [...] tonsil. The patient was initially seen by [facility] on 07/26/2021, and clinical evaluation was [...] accordingly. Nina Grigsby MD documented in this encounterCrystal Clinic Orthopedic Center01-26-2024 NoteSelect [facility]ty [facility]01-19-2024 NoteHNO ID: [id number] Author: ESTELLA FISH APRN.TYPEWRITER TESTER Service: ? Author Type: Nurse Practitioner Type: Progress Notes Filed: 08/08/2023 13:54 Note Text: No showSelect Medical Specialty Hospital - [facility]01-08-2024 NoteSelect [facility] 06-30-2023 NoteSelect [facility]ty [facility]12-11-2023 History of Present illness Narrative* Nina Grigsby MD - 06/30/2023 7:59 AM EST PATIENT NAME: Cristal Gu DATE: 06/30/2023 PRIMARY CARE PHYSICIAN: Dr. Christina Azul OTHER PHYSICIANS: Dr. Verito Whelan, Dr. Marianne Fields, Dr. Damon Paynes ([facility]) Dr. Limon Portions of this encounter note have been copied from the note from 06/02/2023 and has been updatedwhere appropriate, and reflect my current medical decision making from today. CC: This is a 68 year old male with metastatic lung cancer, seen for scheduled follow-up and continued treatment. INTERIM HISTORY: Since the patient's last visit here he was reevaluated by [facility] on 05/27/2023. Itwas felt the right [...] no significant medical changes. He remains in [facility] for his metastatic lung cancer, and is tolerating the medication well. Since starting [facility] his left chest wallpain has resolved and [...] (HCC) Peripheral arterial disease (HCC) 2019 R DIRECTOR NEWS stent PAST SURGICAL HISTORY: PAST SURGICAL HISTORY Procedure Laterality Date BACK SURGERY HX 2019 CABG (4) VEIN GRAFTS & ARTERIAL GRAFT(S) 2016 LOWER EXTREMITY CHANGE MANAGEMENT MANAGER W/WO STENT Right 2019 right common femoral [...] involving face and upper back. PATHOLOGY: 10/21/2022 [id number] NGS analysis KRAS G12C mutation present, 5.2% [...] No hypermetabolic osseous lesions 01/03/2023 Chest CTA ([facility]) Bilateral hilar soft tissue [...] prior study, as above. 04/12/2022 Bone scan ([facility]) Degenerative findings. No evidence of metastatic [...] accordingly. Nina Grigsby MD documented in this encounterCrystal Clinic Orthopedic Center12-11-2023 NoteSelect [facility]ty [facility]12-05-2023 NoteSelect [facility] Specialty [facility] - [facility]12-04-2023 NoteSelect Medical Specialty [facility] - [facility]11-24-2023 Instructions* Patient Instructions* Estella Fish APRN.CNP - 06/13/2023 9:54 AM EST Estella Fish CNP Department of Palliative and Supportive Care Palliative Care - Specialty services in symptom management and support For questions or prescription refills, call: [phone] Friday - Friday 9AM-5PM LASHAY Evans, RN - Flash Drier Operator Please call 3-5 days in advance for medication refills Evenings, Weekends, Holidays: [phone] (ask for palliative medicine on-call provider) For appointments, cancellations or reschedule, call: [phone] documented in this encounterCrystal Clinic Orthopedic Center11-24-2023 History of Present illness Narrative* Estella [...] has improved anxiety and sleep. Modified ESAS ([place] Symptom Assessment Scale) Information Provided By: Patient [...] Nose: Nose normal. No rhinorrhea. Mouth/Throat: Lips: [place]. Mouth: Mucous membranes are moist. No oral [...] suspiciousactivity was identified. 06/13/2023 by Estella Fish, SERVICE PROVIDER, CONCERT MANAGER.TYPEWRITER TESTER Assessment & Plan (Z51.5) Palliative care by specialist (primary encounter diagnosis) - Reviewed philosophy of palliative medicine - Discussed services offered by [facility] - Provided support -Discussed services offered by palliative medicine and how to contact us (S32.92) Primary malignant neoplasm of left lung metastatic [...] 6-8 Weeks in person Estella Fish NP, CONCERT MANAGER.TYPEWRITER TESTER June 13, 2023 7:43 AM I spent a total of 35 minutes on the date of the service which included preparing to see the patient, [id number] patient care, completing clinical documentation, obtaining and/or reviewing separately obtained history, performing a medically appropriate examination, counseling and educating the pat ient/family/caregiver, ordering medications, tests, or procedures, communicating with other HCPs (not separately reported), and independently interpreting results (not separately reported). This note may have been partially generated using the [employer] voice recognition system. While every effort was made to correct voice recognition errors, kindly be aware that some errors may occasionally occur. documented in this encounterCrystal Clinic Orthopedic Center11-24-2023 NoteSelect Medical Specialty [facility] - [facility]11-21-2023 History of Present illness Narrative* Hector Limon MD - 06/10/2023 12:00 AM EST CRISTAL GU [id number] 06/10/2023 [facility] Radiation Oncology Department SIMULATION NOTE DATE OF SIMULATION: 06/10/2023 THERAPIST: Sapna Severino MACHINE: [employer] DIAGNOSIS: C10 Malignant neoplasm of oropharynx AREA: [...] / CDT 2:50 PM documented in this encounterCrystal Clinic Orthopedic Center11-21-2023 History of Present illness Narrative* Hector Limon MD - 06/10/2023 12:00 AM EST CRISTAL GU [id number] 06/10/2023 [facility] Department of Radiation Oncology Treatment Planning [...] Limon M.D. 1:41 AM documented in this encounterCrystal Clinic Orthopedic Center11-21-2023 NoteSelect Medical Specialty [facility] - [facility]11-21-2023 NoteSelect Medical Specialty Hospital - [facility]11-14-2023 Miscellaneous Notes * Telephone Encounter - Chet-Pavithra Acuna MA - 06/03/2023 3:39 PM EST Opened for refill, refills not needed at this time. Pavithra Jacinto MA documented in this encounterCrystal Clinic Orthopedic Center11-13-2023 NoteSelect [facility]ty [facility] - [facility]11-13-2023 History of Present illness Narrative* Patricia Miller APRN.TYPEWRITER TESTER - 06/02/2023 2:53 PM EST PATIENT NAME: [...] (HCC) Peripheral arterial disease (HCC) 2019 R DIRECTOR NEWS stent PAST SURGICAL HISTORY: PAST SURGICAL HISTORY Procedure Laterality Date BACK SURGERY HX 2019 CABG (4) VEIN GRAFTS & ARTERIAL GRAFT(S) 2016 LOWER EXTREMITY CHANGE MANAGEMENT MANAGER W/WO STENT Right 2019 right common femoral [...] involving face and upper back. PATHOLOGY: 10/21/2022 [id number] NGS analysis KRAS G12C mutation present, 5.2% [...] No hypermetabolic osseous lesions 01/03/2023 Chest CTA ([facility]) Bilateral hilar soft tissue [...] prior study, as above. 04/12/2022 Bone scan ([facility]) Degenerative findings. No evidence of metastatic [...] CT. [facility], and clinical evaluation most consistent with inflammatory/post-infectious findings. No suspicion for malignancy. The patient apparently chewed tobacco, and was advised to discontinue. Follow-up PET scan 05/12/2023 revealed significant increased size and metabolism of the right tonsillar mass. We will refer to [facility] for evaluation, most likely to include [...] which included preparing to see the patient, [id number] patient care, completing clinical documentation, obtaining and/or reviewing separately obtained history, performing a medically appropriate examination, counseling and educating the pat ient/family/caregiver, ordering medications, tests, or procedures, independently interpreting results (not separately reported), and communicating results to the patient/family/caregiver. documented in this encounterCrystal Clinic Orthopedic Center11-10-2023 NoteSelect [facility]ty [facility] - [facility]11-10-2023 History of Present illness Narrative* Hector Limon MD - 05/30/2023 11:16 AM EST Radiation Oncology - Follow Up Note PATIENT NAME: Cristal Gu PATIENT DIAGNOSIS: Lung cancer, left upper lobe, pleomorphic carcinoma, stage IIb [id number], stage IIB AJCC 8th edition (chest wall [...] left upper lobe, pleomorphic carcinoma, stage IIb [id number], stage IIB AJCC 8th edition (chest wall [...] MD cc: Christina Azul [address] [place] [address] documented in this encounterCrystal Clinic Orthopedic Center11-07-2023 NoteSelect [facility] Specialty [facility] - [facility]11-07-2023 History of Present illness Narrative* Damon Tse [...] ACTIVE PROBLEM LIST Coronary Artery Disease Involving [place] Coronary Artery of [place] Heart Without Angina Pectoris Centrilobular Emphysema (Hcc) [...] of SERVICE: 1:41 PM documented in this encounterCrystal Clinic Orthopedic Center11-07-2023 Nurse Note* Radha Hunter CT - 05/27/2023 1:31 PM EST Tobacco Use: 2 packs/day, for 50 years. Types: Cigarettes Was smoking cessation packet given? Patient Declined Was a referral initiated?Patient declined. documented in this encounterCrystal Clinic Orthopedic Center10-31-2023 Miscellaneous Notes* Telephone Encounter - Denita Rai RN - 05/20/2023 1:49 PM EDT Patient started/will start taking Sotorasib on 05/14/23. Denita Rai RN documented in this encounterCrystal Clinic Orthopedic Center10-31-2023 Miscellaneous Notes* Telephone Encounter - Denita [...] comply. Denita Rai RN documented in this encounterCrystal Clinic Orthopedic Center10-31-2023 History of Present illness Narrative* Denita [...] needed. Denita Rai RN documented in this encounterCrystal Clinic Orthopedic Center10-31-2023 NoteSelect [facility]10-30-2023 Miscellaneous Notes* Telephone Encounter - Denita Rai RN - 05/19/2023 9:40 AM EDT Pt notified of script. Denita Rai RN * Telephone Encounter - Patricia Miller APRN.TYPEWRITER TESTER - 05/19/2023 9:19 AM EDT The following approved medication requests have been transmitted electronically. Requested Prescriptions Signed Prescriptions Disp Refills amoxicillin-clavulanate potassium (AUGMENTIN) 875-125 mg per tablet 14 tablet 0 Sig: Take 1 tablet by mouth two times a day for 7 days. Authorizing Provider: PATRICIA MILLER APRN.TYPEWRITER TESTER * Telephone Encounter - Denita Rai RN [...] then? Denita Rai RN documented in this encounterCrystal Clinic Orthopedic Center10-27-2023 Instructions* Patient Instructions* Estella Fish APRN.RONAL - 05/16/2023 9:13 AM EDT Estella Fish CNP Department of Palliative and Supportive Care Palliative Care - Specialty services in symptom management and support For questions or prescription refills, call: [phone] Friday - Friday 9AM-5PM LASHAY Evans, RN - Flash Drier Operator Please call 3-5 days in advance for medication refills Evenings, Weekends, Holidays: [phone] (ask for palliative medicine on-call provider) For appointments, cancellations or reschedule, call: [phone] documented in this encounterCrystal Clinic Orthopedic Center10-27-2023 NoteSelect [facility]ty [facility]10-27-2023 History of Present illness Narrative* Estella Fish APRN.TYPEWRITER TESTER - 05/16/2023 8:56 AM EDT PALLIATIVE MEDICINE [...] or sertraline, not sure why. Modified ESAS ([place] Symptom Assessment Scale) Information Provided By: Patient [...] ear normal. Nose: Nose normal. Mouth/Throat: Lips: [place]. Mouth: Mucous membranes are moist. No oral [...] No suspiciousactivity was identified. 05/16/2023 by Estella Fish, SERVICE PROVIDER, CONCERT MANAGER.TYPEWRITER TESTER Urine Screen Lab Results Component Value Date UAMPH Negative 09/26/2021 UBARB2 Negative 09/26/2021 UBENZ Negative 09/26/2021 UCOC2 Negative 09/26/2021 UOPI Negative 09/26/2021 UOXYC Negative 09/26/2021 UPCP Negative 09/26/2021 UTHC Negative 09/26/2021 UETOH <11 09/26/2021 Assessment & Plan (Z51.5) Palliative care by specialist (primary encounter diagnosis) - Reviewed philosophy of palliative medicine - Discussed services offered by [facility] - Provided support -Discussed services offered by palliative medicine and how to contact us (G09.92) Primary malignant neoplasm of left lung metastatic [...] which included preparing to see the patient, [id number] patient care, completing clinical documentation, obtaining and/or reviewing separately obtained history, performing a medically appropriate examination, counseling and educating the pat ient/family/caregiver, ordering medications, tests, or procedures, and independently interpreting results (not separately reported). Existence of Advance Directives: No - not interested Next Visit: 4 Weeks in person Estella Fish NP, ROBLES May 16, 2023 8:56 AM This note may have been partially generated using the [employer] voice recognition system. While every effort was made to correct voice recognition errors, kindly be aware that some errors may occasionally occur. documented in this encounterCrystal Clinic Orthopedic Center10-26-2023 Miscellaneous Notes* Telephone Encounter - Patricia [...] FYI.... Denita Rai RN documented in this encounterCrystal Clinic Orthopedic Center10-26-2023 Miscellaneous Notes* Telephone Encounter - Patricia [...] 75 mcg. Pauline Dennis documented in this encounterCrystal Clinic Orthopedic Center10-24-2023 Miscellaneous Notes* Telephone Encounter - Denita Rai RN - 05/13/2023 3:[address] Grigsby, treatment plan will be changing to Lumakras. Script sent to [facility] pharmacy. Denita Rai RN * Telephone Encounter - Analisa Stacy RPh - 05/13/2023 12:05 PM EDT Added future plan of pembrolizumab, carboplatin, and paclitaxel for after today's dose of pembrolizumab. (Was not certain if you were going to go ahead with today's dose or not.) Jose Stacy, MoeD, BCOP Whitney: Moe ValladaresD, BCOP documented in this encounterCrystal Clinic Orthopedic Center10-24-2023 NoteSelect Medical Specialty Hospital - [facility]10-23-2023 History of Present illness Narrative* Alana, Deborah N, RN - 05/12/2023 12:00 PM EDT Radiology Service Progress Note DATE OF SERVICE: May 12, 2023 TIME: 12:06 PM PATIENT IDENTITY VERIFICATION COMPLETED USING TWO [...] CREATININE: Creatinine Date Value Ref Range Status 04/22/2023 1.11 0.73 - 1.22 mg/dL Final 04/01/2023 1.02 0.73 - 1.22 mg/dL Final 03/11/2023 0.89 0.73 - 1.22 mg/dL Final Estimated Glomerular Filtration Rate Date Value Ref Range Status 04/22/2023 73 >=60 mL/min/1.73m Final Comment: Estimated Glomerular Filtration [...] RESULTS: POC done: Yes, See Lab Tab May 12, 2023 TREATMENT: N/A IV SITE: Ambulatory: A peripheral IV was started in the Right forearm with a Angio cath: 24 gauge. IV SITE APPEARANCE: Clean,Dry and Intact SIGNATURE: Deborah Warner RN PATIENT NAME: Cristal Gu DATE: May 12, 2023 TIME: 12:06 PM * Denita Yang, RT(R) - 05/12/2023 12:00 PM EDT RADIOLOGY SERVICE PROGRESS NOTE SERVICE DATE: 05/12/2023 SERVICE TIME: 12:32 PM PATIENT IDENTITY VERIFICATION COMPLETED USING TWO (2) STANDARD IDENTIFIERS: Name and Date of confirmed by patient verbally POST EXAM PIV STATUS: Discontinued PROCEDURE TYPE: NM INJECT: PET/CT BODY SCAN. 7.2 mCi F18 FDG. No other medications given.. ADMINISTRATION TIME: 1201 PATIENT DISCHARGED TO: Ambulatory patient, left [place] department area. A Diagnostic radioactive procedure has taken place, with no further precautions necessary other than routine body substance precautions. More information regarding radiation safety can be found usingthis link: [email or web address] 20Diagnostic%20Nuclear%20Medicine%20Procedures.[email or web address] SIGNATURE: IGGY Vizcaino) PATIENT NAME: Cristal Gu DATE: May 12, 2023 TIME: 12:32 PM PAGER/CONTACT #: documented in this encounterCrystal Clinic Orthopedic Center10-23-2023 [facility]10-23-2023 NoteSelect Medical Specialty Hospital - [facility]10-19-2023 Miscellaneous Notes * Telephone Encounter - Denita Rai RN - 05/08/2023 2:26 PM EDT Pt notified of scripts and verbalizes understanding. Disposition: per Patricia Miller NP, patient directed to: Manage at home. Provided instructions and will call back. Denita Rai RN * Telephone Encounter - Patricia Miller APRN.RONAL - 05/08/2023 2:01 PM EDT The following [...] for 4 days. Authorizing Provider: PATRICIA MILLER APRN.CNP * [...] again. Script pended if you agree. Denita Rai, RN documented in this encounterCrystal Clinic Orthopedic Center10-16-2023 Miscellaneous Notes* Telephone Encounter - Analisa Stacy RPh - 05/05/2023 3:58 PM EDT Next appt and labs 05/13/23. Jose Stacy, MoeD, BCOP documented in this encounterCrystal Clinic Orthopedic Center10-04-2023 Miscellaneous Notes* Telephone Encounter - Patricia [...] pended. Denita Rai RN documented in this encounterCrystal Clinic Orthopedic Center10-03-2023 NoteSelect Medical Specialty Hospital - [facility]09-19-2023 Miscellaneous Notes* Telephone Encounter - Denita Rai [...] objections? Denita Rai RN documented in this encounterCrystal Clinic Orthopedic Center09-12-2023 History of Present illness Narrative* Ania Peters RN - 04/01/2023 1:36 PM EDT Potassium 3.3 reviewed with Raimundo Miller CNP. She would like pt to get K 20 meq IV x1 dose today andwill send a script for oral K to his pharmacy. Pt and tx nurse informed. Ania Peters, RN documented in this encounterCrystal Clinic Orthopedic Center09-12-2023 History of Present illness Narrative* Denita Yang RT(R) - 04/01/2023 1:30 PM EDT Radiology Service Progress Note PATIENT NAME: Cristal Gu DATE OF SERVICE: April 01, 2023 TIME: 2:16 PM PATIENT IDENTITY VERIFICATION COMPLETED USING TWO [...] IV DATA: Not applicable SIGNED BY: RT Charis(R) April 01, 2023 2:16 PM documented in this encounterCrystal Clinic Orthopedic Center09-12-2023 Nurse Note* Yani Singer - 04/01/2023 12:51 PM EDT Patient states he has been coughing up a lot of stuff. Coughing up more blood then usual. documented in this encounterCrystal Clinic Orthopedic Center09-12-2023 History of Present illness Narrative* Patricia Miller APRN.CNP - 04/01/2023 12:46 PM EDT PATIENT NAME: [...] scheduled follow-up and continued treatment. INTERIM HISTORY: [place] returns for follow-up and continued treatment. [...] (HCC) Peripheral arterial disease (HCC) 2019 R DIRECTOR NEWS stent PAST SURGICAL HISTORY: PAST SURGICAL HISTORY Procedure Laterality Date BACK SURGERY HX 2019 CABG (4) VEIN GRAFTS & ARTERIAL GRAFT(S) 2016 LOWER EXTREMITY CHANGE MANAGEMENT MANAGER W/WO STENT Right 2019 right common femoral [...] involving face and upper back. PATHOLOGY: 10/21/2022 [id number] NGS analysis KRAS G12C mutation present, 5.2% [...] No hypermetabolic osseous lesions 01/03/2023 Chest CTA ([facility]) Bilateral hilar soft tissue [...] prior study, as above. 04/12/2022 Bone scan ([facility]) Degenerative findings. No evidence of metastatic [...] with moderate relief. Will consider referral to [facility] palliative medicine if symptoms persist. 7. Abnormal [...] reaction versus viral syndrome. Improved. Patricia Miller APRN.TYPEWRITER TESTER I spent a total of 30 minutes on the date of the service which included preparing to see the patient, [id number]-[id number] patient care, completing clinical documentation, obtaining and/or reviewing separately obtained history, performing a medically appropriate examination, counseling and educating the pat ient/family/caregiver, ordering medications, tests, or procedures, independently interpreting results (not separately reported), and communicating results to the patient/family/caregiver. documented in this encounterCrystal Clinic Orthopedic Center08-22-2023 History of Present illness Narrative* Nina [...] (HCC) Peripheral arterial disease (HCC) 2019 R DIRECTOR NEWS stent PAST SURGICAL HISTORY: PAST SURGICAL HISTORY Procedure Laterality Date BACK SURGERY HX 2019 CABG (4) VEIN GRAFTS & ARTERIAL GRAFT(S) 2016 LOWER EXTREMITY CHANGE MANAGEMENT MANAGER W/WO STENT Right 2019 right common femoral [...] involving face and upper back. PATHOLOGY: 10/21/2022 [id number] NGS analysis KRAS G12C mutation present, 5.2% [...] No hypermetabolic osseous lesions 01/03/2023 Chest CTA ([facility]) Bilateral hilar soft tissue [...] prior study, as above. 04/12/2022 Bone scan ([facility]) Degenerative findings. No evidence of metastatic [...] CT. [facility], and clinical evaluation most consistent with inflammatory/post-infectious findings. No suspicion for malignancy. The patient apparently chews tobacco, and was advised to discontinue.He will follow- up with ENT as indicated. 6. Cancer related pain Severe pain left upper chest wall since August 2022. Currently on Percocet and gabapentin with moderate relief. Will consider referral to [facility] palliative medicine if symptoms persist. 7. Abnormal [...] worsen. Nina Grigsby MD documented in this encounterCrystal Clinic Orthopedic Center08-21-2023 Miscellaneous Notes* Telephone Encounter - Analisa Stacy RPh - 03/10/2023 11:05 AM EDT Instructed by pt to change pharmacy to [place], [place]. Jose Stacy, PharmD, BCOP * Telephone [...] authorize? Denita Rai RN documented in this encounterCrystal Clinic Orthopedic Center08-16-2023 Miscellaneous Notes* Telephone Encounter - Denita [...] suggestions? Denita Rai RN documented in this encounterCrystal Clinic Orthopedic Center08-01-2023 Nurse Note* Pavithra Heart MA - 02/18/2023 2:39 PM EDT Patient hurt his back so he is having pain from that today. Pavithra Acuna MA documented in this encounterCrystal Clinic Orthopedic Center08-01-2023 History of Present illness Narrative* Nina [...] (HCC) Peripheral arterial disease (HCC) 2019 R DIRECTOR NEWS stent PAST SURGICAL HISTORY: PAST SURGICAL HISTORY Procedure Laterality Date BACK SURGERY HX 2019 CABG (4) VEIN GRAFTS & ARTERIAL GRAFT(S) 2016 LOWER EXTREMITY CHANGE MANAGEMENT MANAGER W/WO STENT Right 2019 right common femoral [...] involving face and upper back. PATHOLOGY: 10/21/2022 [id number] NGS analysis KRAS G12C mutation present, 5.2% [...] No hypermetabolic osseous lesions 01/03/2023 Chest CTA ([facility]) Bilateral hilar soft tissue [...] prior study, as above. 04/12/2022 Bone scan ([facility]) Degenerative findings. No evidence of metastatic [...] with moderate relief. Will consider referral to [facility] palliative medicine if symptoms persist. 7. Abnormal [...] care. Nina Grigsby MD documented in this encounterCrystal Clinic Orthopedic Center07-31-2023 Miscellaneous Notes* Telephone Encounter - Yani Singer - 02/17/2023 2:14 PM EDT Patient has an OTV appointment on 02/18. Please place lab orders. Yani Singer documented in this encounterCrystal Clinic Orthopedic Center07-20-2023 Miscellaneous Notes* Telephone Encounter - Vanessa Carl - 02/06/2023 2:11 PM EDT ER records scanned. * Telephone Encounter - Denita Rai RN - 02/06/2023 1:20 PM EDT FYI: Pt reports that he went to [facility] ER w/ a right ear ache. Diagnosed w/ an ear infection. Sent home on Amoxicillin 500 mg BID x 10 days and Ciprodex gtts BID x 7 days. Tomasa: Please scan pt's ER records from [facility]. Thanks! Denita Rai RN documented in this encounterCrystal Clinic Orthopedic Center07-11-2023 History of Present illness Narrative* Hector Limon MD - 01/28/2023 3:15 PM EDT Radiation Oncology - Follow Up Note PATIENT NAME: Cristal Gu PATIENT DIAGNOSIS: Lung cancer, left upper lobe, pleomorphic carcinoma, stage IIb [id number], stage IIB AJCC 8th edition (chest wall [...] left upper lobe, pleomorphic carcinoma, stage IIb [id number], stage IIB AJCC 8th edition (chest wall invasion), PD-L1 95%, KRAS G12C mutation present Doing fairly well, and has had a good response to recent left supraventricular chest wall radiation. He continues active follow-up with Dr. Grigsby. We will plan to see patient back on an as-needed basis. Signed by: Hector Limon MD cc: Christina Azul [address] [place] [phone] documented in this encounterCrystal Clinic Orthopedic Center06-30-2023 History of Present illness Narrative* Hannah Oglesby RN - 01/17/2023 12:45 PM EDT Radiology Service Progress Note DATE OF SERVICE: January 17, 2023 TIME: 1:08 PM PATIENT IDENTITY VERIFICATION COMPLETED USING TWO [...] CREATININE: Creatinine Date Value Ref Range Status 01/07/2023 0.77 0.73 - 1.22 mg/dL Final 12/27/2022 0.85 0.73 - 1.22 mg/dL Final 12/17/2022 0.88 0.73 - 1.22 mg/dL Final Estimated Glomerular Filtration Rate Date Value Ref Range Status 01/07/2023 99 >=60 mL/min/1.73m Final Comment: Estimated Glomerular Filtration [...] >60 mL/min/1.73 m2 Final P.O.C.T. RESULTS: N/A January 17, 2023 TREATMENT: N/A IV SITE: Ambulatory: A peripheral IV was started in the Left antecubital site with a Angio cath: 22gauge. IV SITE APPEARANCE: Clean,Dry and Intact SIGNATURE: Hannah Olgesby RN PATIENT NAME: Cristal Gu DATE: January 17, 2023 TIME: 1:08 PM * Denita Yang RT(R) - 01/17/2023 12:45 PM EDT RADIOLOGY SERVICE PROGRESS NOTE SERVICE DATE: 01/17/2023 SERVICE TIME: 1:43 PM PATIENT IDENTITY VERIFICATION COMPLETED USING TWO (2) STANDARD IDENTIFIERS: Name and Date of confirmed by patient verbally POST EXAM PIV STATUS: Discontinued PROCEDURE TYPE: NM INJECT: PET/CT BODY SCAN. 6.8 mCi F18 FDG. No other medications given.. ADMINISTRATION TIME: 1300 PATIENT DISCHARGED TO: Ambulatory patient, left [place] department area. A Diagnostic radioactive procedure has taken place, with no further precautions necessary other than routine body substance precautions. More information regarding radiation safety can be found usingthis link: [email or web address] SIGNATURE: RT Charis(Marcella) PATIENT NAME: Cristal Gu DATE: January 17, 2023 TIME: 1:43 PM PAGER/CONTACT #: documented in this encounterCrystal Clinic Orthopedic Center06-26-2023 Miscellaneous Notes* Telephone Encounter - Denita [...] for 7 days. Authorizing Provider: PATRICIA MILLER APRN.TYPEWRITER TESTER * Telephone Encounter - Denita Rai RN - 01/13/2023 2:47 PM EDT Patient phones requesting refills as follows: Last script written on 01/07/23 for 7 day supply. Requested Prescriptions Pending Prescriptions Disp Refills ALPRAZolam (XANAX) 0.25 mg tablet 15 tablet 0 Sig: Take 1 tablet by mouth twice daily for 7 days. Please review and advise. Denita Rai RN documented in this encounterCrystal Clinic Orthopedic Center06-26-2023 Miscellaneous Notes* Telephone Encounter - Bernadine [...] 01/17/23. Rosibel Wheeler LPN documented in this encounterCrystal Clinic Orthopedic Center06-22-2023 Miscellaneous Notes* Telephone Encounter - Vanessa Fam [facility] - 01/09/2023 4:03 PM EDT Records faxed to [facility] in [place] [phone]. documented in this encounterCrystal Clinic Orthopedic Center06-21-2023 Miscellaneous Notes* Telephone Encounter - MARGARET Finnegan - 01/08/2023 2:49 PM EDT Social Work Problem Referral Note INFORMATION/REFERRAL : Cristal Gu 67 year old male was referred by Leonel Zhu to [facility] Social Work for the following reason(s): [...] listed in Care Team tab: Yes ELIZABETH Finnegan-Margueirte documented in this encounterCrystal Clinic Orthopedic Center06-20-2023 History of Present illness Narrative* Dominique Murphy, RD - 01/07/2023 12:16 PM EDT [...] Written resources provided to patient. Contacted nurse legal services manager and SW regarding patient's current condition [...] Dosing Weight: 57.4 kg Estimated kilocalorie needs: 8048-9627 kilocalories determined by 30-35 kcal/kg Estimated protein needs: 57-86 grams determined by 1.0-1.5 g/kg Dosing weight Estimated fluid needs: ~4974-2684 milliliters based on 1 mL per kcal [...] Murphy MS, RDN, LD documented in this encounterCrystal Clinic Orthopedic Center06-20-2023 History of Present illness Narrative* Aurelia Bradley RN - 01/07/2023 11:17 AM EDT LFT's reviewed with , ok to proceed with tx as written. Aurelia Bradley RN documented in this encounterCrystal Clinic Orthopedic Center06-20-2023 Miscellaneous Notes* Telephone Encounter - Lisa Figueroa - 01/07/2023 10:20 AM EDT Disregard. Patient just showed and currently in office now. Lisa Figueroa * Telephone Encounter - Lisa Figueroa - 01/07/2023 10:08 AM EDT Patient did not show for RV and treatment this morning. Lisa Figueroa documented in this encounterCrystal Clinic Orthopedic Center06-19-2023 Miscellaneous Notes* Telephone Encounter - Yani Singer - 01/06/2023 11:43 AM EDT Patient has an OTV appointment on 01/06. Please place lab orders. Yani Singer documented in this encounterCrystal Clinic Orthopedic Center06-16-2023 Miscellaneous Notes* Telephone Encounter - Denita Rai RN - 01/03/2023 4:20 PM EDT Disposition: per Yusef, patient directed to: Emergency Room due to the issue being urgent. Pt confirms that he will be going to [facility] ER. Report phoned to [facility] RN. Pt's last office [...] concerns? Denita Rai RN documented in this encounterCrystal Clinic Orthopedic Center06-06-2023 Miscellaneous Notes* Telephone Encounter - Denita Rai RN - 12/24/2022 3:44 PM EDT Rosemarie from [facility] states that they received pt's MMW script, however, they are currently out of viscous lidocaine. Script will be filled at our pharmacy. Pt notified and verbalizes understanding. DialedIN [facility] instructed to cancel the script. Denita Rai RN documented in this encounterCrystal Clinic Orthopedic Center06-06-2023 Miscellaneous Notes* Telephone Encounter - Denita Rai RN - 12/24/2022 3:07 PM EDT MMW script faxed to [facility] @ [phone]. Denita Rai RN * Telephone Encounter - [...] Swish and Swallow Authorizing Provider: PATRICIA MILLER APRN.TYPEWRITER TESTER * Telephone Encounter - Denita Rai RN [...] pt? Denita Rai RN documented in this encounterCrystal Clinic Orthopedic Center05-30-2023 History of Present illness Narrative* Ania [...] understanding. Aurelia Bradley RN documented in this encounterCrystal Clinic Orthopedic Center05-30-2023 History of Present illness Narrative* Nina [...] (HCC) Peripheral arterial disease (HCC) 2019 R DIRECTOR NEWS stent PAST SURGICAL HISTORY: PAST SURGICAL HISTORY Procedure Laterality Date BACK SURGERY HX 2019 CABG (4) VEIN GRAFTS & ARTERIAL GRAFT(S) 2016 LOWER EXTREMITY CHANGE MANAGEMENT MANAGER W/WO STENT Right 2019 right common femoral [...] involving face and upper back. PATHOLOGY: 10/21/2022 [id number] NGS analysis KRAS G12C mutation present, 5.2% [...] prior study, as above. 04/12/2022 Bone scan ([facility]) Degenerative findings. No evidence of metastatic [...] with moderate relief. Will consider referral to [facility] palliative medicine if symptoms persist. 7. Abnormal [...] cancer. Nina Grigsby MD documented in this encounterCrystal Clinic Orthopedic Center05-08-2023 Nurse Note* Ebony Marcelo Ma - 11/25/2022 10:09 AM EDT Clinical questionnaires incomplete due to not loading. Ebony Marcelo Ma documented in this encounterCrystal Clinic Orthopedic Center05-08-2023 History of Present illness Narrative* Patricia [...] (HCC) Peripheral arterial disease (HCC) 2019 R DIRECTOR NEWS stent PAST SURGICAL HISTORY: PAST SURGICAL HISTORY Procedure Laterality Date BACK SURGERY HX 2019 CABG (4) VEIN GRAFTS & ARTERIAL GRAFT(S) 2016 LOWER EXTREMITY CHANGE MANAGEMENT MANAGER W/WO STENT Right 2019 right common femoral [...] involving face and upper back. PATHOLOGY: 10/21/2022 [id number] NGS analysis KRAS G12C mutation present, 5.2% [...] prior study, as above. 04/12/2022 Bone scan ([facility]) Degenerative findings. No evidence of metastatic [...] CT. [facility], and clinical evaluation most consistent with inflammatory/post-infectious findings. No suspicion for malignancy. The patient apparently chews tobacco, and was advised to discontinue.He will follow- up with ENT as indicated. 6. Cancer related pain Severe pain left upper chest wall since August 2022. Currently on Percocet and gabapentin with moderate relief. Will consider referral to [facility] palliative medicine if symptoms persist. 7. Abnormal [...] which included preparing to see the patient, [id number] patient care, completing clinical documentation, obtaining and/or reviewing separately obtained history, performing a medically appropriate examination, counseling and educating the pat ient/family/caregiver, ordering medications, tests, or procedures, independently interpreting results (not separately reported), and communicating results to the patient/family/caregiver. documented in this encounterCrystal Clinic Orthopedic Center05-04-2023 Miscellaneous Notes* Telephone Encounter - Ebony Marcelo Ma - 11/21/2022 11:[address] lab orders for appointment on 11/25/22. Ebony Marcelo Ma documented in this encounterCrystal Clinic Orthopedic Center05-03-2023 Miscellaneous Notes* Telephone Encounter - Dominique [...] ensure a day and has met with colorer before. We discussed the possibility of adding an antidepressant. Pt is concerned about his LFTs and he does not want to take anything that could effect those. Is there something you can prescribe that may increase appetite & help depression while not altering his liver function? Pt uses [facility] in [place] if you want to send something. I will also copy colorer and social work to be aware of changes/issues with patient. Merissa Fam RN documented in this encounterCrystal Clinic Orthopedic Center05-03-2023 History of Present illness Narrative* G Erasto Limon MD - 11/20/2022 10:29 AM EDT Radiation Oncology - Follow Up Note PATIENT NAME: Cristal Gu PATIENT DIAGNOSIS: Lung cancer, left upper lobe, pleomorphic carcinoma, stage IIb [id number], stage IIB AJCC 8th edition (chest wall [...] left upper lobe, pleomorphic carcinoma, stage IIb [id number], stage IIB AJCC 8th edition (chest wall invasion), PD-L1 95%, KRAS G12C mutation present Doing fairly well, with good intial response to palliative radiation. He continues pembrolizumab tory Grigsby. Plan to see back in 4-6 weeks. Signed by: Hector Limon MD cc: Christina Azul [address] [place] [id number] documented in this encounterCrystal Clinic Orthopedic Center05-01-2023 History of Present illness Narrative* Nina [...] (HCC) Peripheral arterial disease (HCC) 2019 R DIRECTOR NEWS stent PAST SURGICAL HISTORY: PAST SURGICAL HISTORY Procedure Laterality Date BACK SURGERY HX 2019 CABG (4) VEIN GRAFTS & ARTERIAL GRAFT(S) 2016 LOWER EXTREMITY CHANGE MANAGEMENT MANAGER W/WO STENT Right 2019 right common femoral [...] involving face and upper back. PATHOLOGY: 10/21/2022 [id number] NGS analysis KRAS G12C mutation present, 5.2% [...] prior study, as above. 04/12/2022 Bone scan ([facility]) Degenerative findings. No evidence of metastatic [...] CT. [facility], and clinical evaluation most consistent with inflammatory/post-infectious findings. No suspicion for malignancy. The patient apparently chews tobacco, and was advised to discontinue.He will follow- up with ENT as indicated. 6. Cancer related pain Severe pain left upper chest wall since August 2022. Currently on Percocet and gabapentin with moderate relief. Will consider referral to [facility] palliative medicine if symptoms persist. 7. Abnormal LFTs Labs from 11/11/2022 revealed significant elevation of the SGOT and SGPT, most likely transaminitis secondary to immunotherapy versus supplements (fenbendazole and curcumin). The patient was advised to discontinue all supplements, and avoid other agents which might contribute to liver dysfunction. Repeat labs and return visit in 1 week. Nina Grigsby MD documented in this encounterCrystal Clinic [facility] Center04-27-2023 Miscellaneous Notes* Telephone Encounter - Yani Lucrecia - 11/14/2022 9:16 AM EDT Patient has an OTV appointment on 11/18. Please place lab orders. Yani Thompsons documented in this encounterCrystal Clinic Orthopedic Center04-25-2023 History of Present illness Narrative* Hector Limon MD - 11/12/2022 12:00 AM EDT [facility] Radiation Oncology Department RADIATION ONCOLOGY - COMPLETION NOTE PATIENT: CRISTAL GUDOB: 1955 DATES OF TREATMENT: 10/28/2022- 11/12/2022 DIAGNOSIS: Lung cancer, left upper lobe, pleomorphic carcinoma, stage IIb [id number], stage IIB AJCC 8th edition (chest wall [...] / WST 0:33 AM documented in this encounterCrystal Clinic Orthopedic Center04-24-2023 History of Present illness Narrative* Rita [...] time. Rita Hurst RN documented in this encounterCrystal Clinic Orthopedic Center04-24-2023 Miscellaneous Notes* Telephone Encounter - Merissa Rodríguez ([employer]) - 11/11/2022 3:10 PM EDT Ambulatory Pharmacy Prior Authorization Note Provider Intervention Required?: No- Pharmacy completed on your behalf. Rx Plan: Drug: Oxycodone-Acetaminophen 5/325 Cover My Meds Diamond: [id number] Determination: Approved Prior Authorization/Case #: [id number] Prior Authorization Expiration: 07/10/2023 Time to PA Submission in CMM: 15 min Time to PA Determination in CMM: Same day Additional Information: For questions relating to this submission, please contact [facility] at [phone] documented in this encounterCrystal Clinic Orthopedic Center04-24-2023 Miscellaneous Notes* Telephone Encounter - Merissa Fam RN - 11/11/2022 12:51 PM EDT Please sign if agreeable. Merissa Fam RN documented in this encounterCrystal Clinic Orthopedic Center04-24-2023 History of Present illness Narrative* Nina [...] (HCC) Peripheral arterial disease (HCC) 2019 R DIRECTOR NEWS stent PAST SURGICAL HISTORY: PAST SURGICAL HISTORY Procedure Laterality Date BACK SURGERY HX 2019 CABG (4) VEIN GRAFTS & ARTERIAL GRAFT(S) 2016 LOWER EXTREMITY CHANGE MANAGEMENT MANAGER W/WO STENT Right 2019 right common femoral [...] involving face and upper back. PATHOLOGY: 10/21/2022 [id number] NGS analysis KRAS G12C mutation present, 5.2% [...] prior study, as above. 04/12/2022 Bone scan ([facility]) Degenerative findings. No evidence of metastatic [...] with moderate relief. Will consider referral to [facility] palliative medicine if symptoms persist. 7. Abnormal LFTs Labs from today reveal significant elevation of the SGOT and SGPT, most likely transaminitis secondary to immunotherapy. We will hold treatment today and repeat labs in 1 week on return. A long course of steroids will be considered if LFTs remain abnormal. Nina Grigsby MD documented in this encounterCrystal Clinic Orthopedic Center04-17-2023 History of Present illness Narrative* G Erasto Limon MD - 11/04/2022 12:12 PM EDT Radiation Oncology - On Treatment Review (OTR) Note PATIENT NAME: Cristal Gu PATIENT DIAGNOSIS: Lung cancer, left upper lobe, pleomorphic carcinoma, stage IIb [id number], stage IIB AJCC 8th edition (chest wall [...] outlined. Hector Limon MD documented in this encounterCrystal Clinic Orthopedic Center04-15-2023 Miscellaneous Notes* Telephone Encounter - Jayson Allred MD - 11/02/2022 9:24 AM EDT Called with increasing cough and occasional blood tinged sputum. Deenies any other symptoms. Levuin sent Instructed to see Dr. Grigsby next week documented in this encounterCrystal Clinic Orthopedic Center04-13-2023 History of Present illness Narrative* Nina [...] (HCC) Peripheral arterial disease (HCC) 2019 R DIRECTOR NEWS stent PAST SURGICAL HISTORY: PAST SURGICAL HISTORY Procedure Laterality Date BACK SURGERY HX 2019 CABG (4) VEIN GRAFTS & ARTERIAL GRAFT(S) 2016 LOWER EXTREMITY CHANGE MANAGEMENT MANAGER W/WO STENT Right 2019 right common femoral [...] involving face and upper back. PATHOLOGY: 10/21/2022 [id number] NGS analysis KRAS G12C mutation present, 5.2% [...] prior study, as above. 04/12/2022 Bone scan ([facility]) Degenerative findings. No evidence of metastatic [...] CT. [facility] and clinical evaluation most [...] persist. Nina Grigsby MD documented in this encounterCrystal Clinic Orthopedic Center04-12-2023 History of Present illness Narrative* Dominique [...] states he was reading online and watching [employer] and felt confused. Discussed with pt importance [...] with Patient: 30 minutes Signed by: Dominique Gray, , RDN, LD documented in this encounterCrystal Clinic Orthopedic Center04-06-2023 History of Present illness Narrative* G Erasto Limon MD - 10/24/2022 5:19 PM EDT Radiation Oncology - Follow Up/new problem note PATIENT NAME: Cristal Gu PATIENT DIAGNOSIS: Lung cancer, left upper lobe, pleomorphic carcinoma, stage IIb [id number], stage IIB AJCC 8th edition (chest wall [...] left upper lobe, pleomorphic carcinoma, stage IIb [id number], stage IIB AJCC 8th edition (chest wall [...] by: Hector Limon MD cc: Christina Azul [address] [place] [address] No referring provider defined for this encounter. documented in this encounterCrystal Clinic Orthopedic Center04-06-2023 Miscellaneous Notes* Telephone Encounter - Denita [...] Reminded pt of his appointment w/ the colorer this coming Friday, 10/28. Pt verbalizes understanding. [...] protocol. Denita Rai RN documented in this encounterCrystal Clinic Orthopedic Center04-05-2023 Miscellaneous Notes* Telephone Encounter - Rolanda Oneil Pss - 10/23/2022 8:11 AM EDT Patient has appt already scheduled with JEROME on 10/28. Patient is scheduled to see Blood Bank Attendant @ 10:00 after his JEROME on 10/28. [...] Pt voiced interest in meeting w/ the colorer. Order pended. Denita Rai RN documented in this encounterCrystal Clinic Orthopedic Center04-03-2023 Nurse Note* Yani Singer - 10/21/2022 1:37 PM EDT Clinical questionnaires incomplete due to Nurse was Interrupted by provider during rooming process documented in this encounterCrystal Clinic Orthopedic Center04-03-2023 History of Present illness Narrative* Nina [...] (HCC) Peripheral arterial disease (HCC) 2019 R DIRECTOR NEWS stent PAST SURGICAL HISTORY: PAST SURGICAL HISTORY Procedure Laterality Date BACK SURGERY HX 2019 CABG (4) VEIN GRAFTS & ARTERIAL GRAFT(S) 2016 LOWER EXTREMITY CHANGE MANAGEMENT MANAGER W/WO STENT Right 2019 right common femoral [...] prior study, as above. 04/12/2022 Bone scan ([facility]) Degenerative findings. No evidence of metastatic [...] persist. Nina Grigsby MD documented in this encounterCrystal Clinic Orthopedic Center04-03-2023 History of Present illness Narrative* G Erasto Limon MD - 10/21/2022 12:00 AM EDT CRISTAL GU [id number] 10/21/2022 [facility] Radiation Oncology Department SIMULATION NOTE DATE OF SIMULATION: 10/21/2022 THERAPIST: Elizabeth Severino MACHINE: Sonatype mCT DIAGNOSIS: Malignant neoplasm of upper lobe, [...] / NRS 34:40 PM documented in this encounterCrystal Clinic Orthopedic Center04-03-2023 History of Present illness Narrative* Hector Limon MD - 10/21/2022 12:00 AM EDT CRISTAL GU [id number] 10/21/2022 [facility] Department of Radiation Oncology Treatment Planning [...] Limon M.D. 33:29 PM documented in this encounterCrystal Clinic Orthopedic Center03-31-2023 Miscellaneous Notes* Telephone Encounter - Yani Singer - 10/18/2022 3:50 PM EDT Patient has an OTV appointment on 10/21. Please place lab orders. Yani Singer documented in this encounterCrystal Clinic Orthopedic Center03-31-2023 Miscellaneous Notes* Telephone Encounter - Lisa [...] Please obtain ER reports. Thanks, Patricia Miller APRN.TYPEWRITER TESTER * Telephone Encounter - Denita Rai RN - 10/17/2022 2:54 PM EDT Pt c/o intolerable pain in his left chest, shoulder and arm. Rates his pain 9- 10/10. Describes as aconstant aching pain. Was seen recently in the ER and prescribed a medrol dose pack. Pt notes the medrol tore up his stomach. Has old scripts of Oxycodone and [place] at home. Took one dose of each w/ very little relief. What do you advise for his pain? Denita Rai RN documented in this encounterCrystal Clinic Orthopedic Center03-28-2023 Miscellaneous Notes* Telephone Encounter - Denita Rai RN - 10/15/2022 2:34 PM EDT Clerical: Can you assist w/ this? Denita Sessler, RN * Telephone Encounter - Nina Grigsby [...] 10:00 AM EDT RADIOLOGY CALL CENTER INTAKE DIGITAL COMMUNICATIONS MANAGER: BIBI EXT: [id number] DATE: 10/15/2022 TIME: 10:01AM TRACKING #. [id number] REQUESTING PERSON: [place] PHONE/PAGER: [phone] REQUESTING STAFF: Jaydon Grigsby MD PHONE/PAGER: [phone] SPECIFICS OF THE REQUEST: (Please be as detailed as possible. If request is lymph node biopsy, specify LOCATION of the node if possible): IMAGING GUIDED BIOPSY LUNG ] SPECIAL REQUESTS: TISSUE SAMPLE, LABWORK: Routine Evaluation -Fine needle aspiration (FNA), core biopsy, no preference, unsure, specific processing request for pathology (For example: send for ER, [place], HER2/sarah or possible lymphoma send in RPMI [...] TO EVALUATE APPROPRIATENESS/FEASIBILITY OF THE REQUEST) IMAGING: [facility] (If the imaging was obtained outside the [facility] system, then it needs to be submitted for review prior to approval.) Note to all persons requesting biopsies: All biopsy requests will be scheduled as quickly as possible, based on the clinical urgency, availability of appointment times, the need to hold anti-thrombolytic therapy (aspirin, blood thinners) and the patient s schedule, including the need for an available compressed air pile driver operator. If a percutaneous biopsy or drainage is not felt to be safe or an alternative method for establishing a diagnosis is possible, this will be discussed directly with the requesting physician. documented in this encounterCrystal Clinic Orthopedic Center03-28-2023 History of Present illness Narrative* Nina [...] his left shoulder. He was seen at [facility] ER on 10/09/2022 and given a [...] (HCC) Peripheral arterial disease (HCC) 2019 R DIRECTOR NEWS stent PAST SURGICAL HISTORY: PAST SURGICAL HISTORY Procedure Laterality Date BACK SURGERY HX 2019 CABG (4) VEIN GRAFTS & ARTERIAL GRAFT(S) 2016 LOWER EXTREMITY CHANGE MANAGEMENT MANAGER W/WO STENT Right 2019 right common femoral [...] prior study, as above. 04/12/2022 Bone scan ([facility]) Degenerative findings. No evidence of metastatic [...] at length. We elected to refer to [facility] interventional radiology to evaluate for biopsy of [...] indicated. Nina Grigsby MD documented in this encounterCrystal Clinic Orthopedic Center03-27-2023 NotebmUniversity [facility]03-23-2023 History of Present illness Narrative* Deborah Cooper RN - 10/10/2022 8:15 AM EDT Radiology Service Progress Note DATE OF SERVICE: October 10, 2022 TIME: 8:15 AM PATIENT WEIGHT: 130 LBS PATIENT IDENTITY VERIFICATION COMPLETED USING TWO (2) STANDARD IDENTIFIERS: Name and Date of confirmed by patient verbally. FALL SCREENING: Has the patient had 2 falls in the last year or 1 fall with injury or currently using an Ambulatory Assistive Device (Walker, Cane, Wheelchair, Crutches, etc.)? No PATIENT GENDER DATA: Male ALLERGIES: Reviewed and unchanged EXAM: CT -CONTRAST INDUCED NEPHROPATHY RISK FACTORS: Not applicable CREATININE: Creatinine Date Value Ref Range Status 09/23/2022 0.85 0.73 - 1.22 mg/dL Final 08/20/2022 1.03 0.73 - 1.22 mg/dL Final 06/25/2022 0.75 0.73 - 1.22 mg/dL Final Estimated Glomerular Filtration Rate Date Value Ref Range Status 09/23/2022 96 >=60 mL/min/1.73m Final Comment: Estimated Glomerular Filtration [...] POC done: Yes, See Lab Tab October 10, 2022 TREATMENT: N/A IV SITE: Ambulatory: A peripheral IV was started in the Right antecubital site with a Angio cath: 22 gauge. IV SITE APPEARANCE: Clean,Dry and Intact SIGNATURE: Deborah Cooper RN PATIENT NAME: Cristal Gu DATE: October 10, 2022 TIME: 8:15 AM * Denita Yang RT(Marcella) - 10/10/2022 8:15 AM EDT RADIOLOGY SERVICE PROGRESS NOTE SERVICE DATE: 10/10/2022 SERVICE TIME: 8:31 AM PATIENT IDENTITY VERIFICATION COMPLETED USING TWO (2) STANDARD IDENTIFIERS: Name and Date of confirmed by patient verbally POST EXAM PIV STATUS: Discontinued PROCEDURE TYPE: NM INJECT: PET/CT BODY SCAN. 7.2 mCi F18 FDG. No other medications given.. ADMINISTRATION TIME: 0818 PATIENT DISCHARGED TO: Ambulatory patient, left [place] department area. A Diagnostic radioactive procedure has taken place, with no further precautions necessary other than routine body substance precautions. More information regarding radiation safety can be found usingthis link: [email or web address] SIGNATURE: RT Charis(Marcella) PATIENT NAME: Cristal Gu DATE: October 10, 2022 TIME: 8:31 AM PAGER/CONTACT #: documented in this encounterCrystal Clinic Orthopedic Center03-06-2023 History of Present illness Narrative* Nina Grigsby [...] leg. He is due to see his anchor tacker to evaluate for possible left leg vascular [...] (HCC) Peripheral arterial disease (HCC) 2019 R DIRECTOR NEWS stent PAST SURGICAL HISTORY: PAST SURGICAL HISTORY Procedure Laterality Date BACK SURGERY HX 2019 CABG (4) VEIN GRAFTS & ARTERIAL GRAFT(S) 2016 LOWER EXTREMITY CHANGE MANAGEMENT MANAGER W/WO STENT Right 2019 right common femoral [...] prior study, as above. 04/12/2022 Bone scan ([facility]) Degenerative findings. No evidence of metastatic [...] 2016. Status post CABG x 4 in [place] 2015. Currently stable. Continue management per PCP/cardiology. [...] indicated. Nina Grigsby MD documented in this encounterCrystal Clinic Orthopedic Center03-01-2023 NoteUT Cardiology - [facility] Isabel Vasquez Haider Gu Sr. is a 67 y.o. year old male patient being seen for Coronary Artery Disease, Peripheral Vascular Disease, Carotid Stenosis, and Hypertension Patient Active Problem List Diagnosis Coronary artery disease involving coronary bypass graft of [place] heart without angina pectoris PVD (peripheral vascular disease) ([facility] Primary hypertension Stenosis of carotid artery No [...] and cilostazol. Carotid ultrasound done at the [facility] 10/30/2020: Report mentions significant area reduction [...] and Lung CA He underwent VATS at [facility] for a lung mass last year Had [...] Nose: Nose normal. Mouth/Throat: (more content not included)...[facility] 09-17-2022 History of Present illness Narrative* Maricruz Lopes RN - 09/17/2022 11:15 AM EST Radiology Service Progress Note DATE OF SERVICE: September 17, 2022 TIME: 11:28 AM PATIENT WEIGHT: 129 LBS PATIENT IDENTITY VERIFICATION COMPLETED USING TWO (2) [...] CREATININE: Creatinine Date Value Ref Range Status 08/20/2022 1.03 0.73 - 1.22 mg/dL Final 06/25/2022 0.75 0.73 - 1.22 mg/dL Final 04/30/2022 0.80 0.73 - 1.22 mg/dL Final Estimated Glomerular Filtration Rate Date Value Ref Range Status 08/20/2022 81 >=60 mL/min/1.73m Final Comment: Estimated Glomerular Filtration [...] RESULTS: POC done: Yes, See Lab Tab August 20, 2022 TREATMENT: No Hydration needed. IV SITE: Ambulatory: A peripheral IV was started in the Right antecubital site with a Angio cath: 20 gauge. IV SITE APPEARANCE: Clean,Dry and Intact SIGNATURE: Maricruz Lopes RN PATIENT NAME: Cristal Gu DATE: September 17, 2022 TIME: 11:28 AM * Denita Yang RT(R) - 09/17/2022 11:15 AM EST Radiology Service Progress Note PATIENT NAME: Cristal Gu DATE OF SERVICE: September 17, 2022 TIME: 12:35 PM PATIENT IDENTITY VERIFICATION COMPLETED USING TWO (2) IDENTIFIERS: Name and Date of confirmedby patient verbally. FALL SCREENING: Has the patient had 2 falls in the last year or 1 fall with injury or currently using an Ambulatory Assistive Device (Walker, Cane, Wheelchair, Crutches, etc.)? No PATIENT GENDER DATA: Male PATIENT RELEVANT IMPLANT DATA REVIEWED: Not Applicable RADIOLOGY DEPARTMENT: CT; Exam(s) Completed: Chest Abdomen Pelvis With IV and Oral contrast PERIPHERAL IV DATA: Site assessment: Clean,Dry and Intact, Site disposition Discontinued SIGNED BY: RT Charis(R) September 17, 2022 12:35 PM documented in this encounterCrystal Clinic Orthopedic Center02-23-2023 Miscellaneous Notes* Telephone Encounter - [place] [...] on 09/23/22@3:15 pm & BRM@3:30 pm. [place] Everett Caio * Telephone Encounter - Denita Rai RN - 09/11/2022 3:49 PM EST Pt's son, Eduardo, notified of script and verbalizes understanding. Clerical: Please move up pt's CT's to be done as soon as possible and call pt when scheduled. Will need f/u w/ BRM to review results. Thanks! Denita Rai RN * Telephone Encounter - Patricia Miller APRN.RONAL - 09/11/2022 2:41 PM EST The following [...] well. Denies fevers. Has been taking Guerita Mikana cold as well as Advil for his symptoms. Pt due to have CT scans 10/08/22. What do you advise? Denita Rai RN documented in this encounterCrystal Clinic Orthopedic Center01-31-2023 History of Present illness Narrative* Nina [...] (HCC) Peripheral arterial disease (HCC) 2019 R DIRECTOR NEWS stent PAST SURGICAL HISTORY: PAST SURGICAL HISTORY Procedure Laterality Date BACK SURGERY HX 2019 CABG (4) VEIN GRAFTS & ARTERIAL GRAFT(S) 2016 LOWER EXTREMITY CHANGE MANAGEMENT MANAGER W/WO STENT Right 2019 right common femoral [...] prior study, as above. 04/12/2022 Bone scan ([facility]) Degenerative findings. No evidence of metastatic [...] indicated. Nina Grigsby MD documented in this encounterCrystal Clinic Orthopedic Center12-06-2022 History of Present illness Narrative* G Erasto Limno MD - 06/25/2022 10:43 AM EST Radiation Oncology - Follow Up Note PATIENT NAME: Cristal Gu PATIENT DIAGNOSIS: Lung cancer, left upper lobe, pleomorphic carcinoma, stage IIb [id number], stage IIB AJCC 8th edition (chest wall [...] left upper lobe, pleomorphic carcinoma, stage IIb [id number], stage IIB AJCC 8th edition (chest wall [...] by: Hector Limon MD cc: Christina Azul [facility] [place] [address] No referring provider defined for this encounter. 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 He was not COVID tested. [...] (HCC) Peripheral arterial disease (HCC) 2019 R DIRECTOR NEWS stent PAST SURGICAL HISTORY: PAST SURGICAL HISTORY Procedure Laterality Date BACK SURGERY HX 2019 CABG (4) VEIN GRAFTS & ARTERIAL GRAFT(S) 2016 LOWER EXTREMITY CHANGE MANAGEMENT MANAGER W/WO STENT Right 2019 right common femoral [...] prior study, as above. 04/12/2022 Bone scan ([facility]) Degenerative findings. No evidence of metastatic [...] be referred back to ENT. Patricia Miller APRN.TYPEWRITER TESTER I spent a total of 30 minutes on the date of the service which included preparing to see the patient, [id number] patient care, completing clinical documentation, obtaining and/or reviewing separately obtained history, performing a medically appropriate examination, counseling and educating the pat ient/family/caregiver, ordering medications, tests, or procedures, independently interpreting results (not separately reported), and communicating results to the patient/family/caregiver. I spent a total of 30 minutes on the date of the service which included preparing to see the patient, [id number] patient care, completing clinical documentation, obtaining and/or reviewing separately obtained history, performing a medically appropriate examination, counseling and educating the pat ient/family/caregiver, ordering medications, tests, or procedures, independently interpreting results (not separately reported), and communicating results to the patient/family/caregiver. documented in this encounterCrystal Clinic Orthopedic Center11-25-2022 History of Present illness Narrative* Deborah Cooper RN - 06/14/2022 8:00 AM EST Radiology Service Progress Note DATE OF SERVICE: June 14, 2022 TIME: 8:00 AM PATIENT WEIGHT: 131 LBS PATIENT IDENTITY VERIFICATION COMPLETED USING TWO (2) [...] CREATININE: Creatinine Date Value Ref Range Status 04/30/2022 0.80 0.73 - 1.22 mg/dL Final 03/19/2022 0.83 0.73 - 1.22 mg/dL Final 02/20/2022 0.86 0.73 - 1.22 mg/dL Final Estimated Glomerular Filtration Rate Date Value Ref Range Status 04/30/2022 98 >=60 mL/min/1.73m Final Comment: Estimated Glomerular Filtration [...] RESULTS: POC done: Yes, See Lab Tab May 31, 2022 TREATMENT: No Hydration needed. IV SITE: Ambulatory: A peripheral IV was started in the Right antecubital site with a Angio cath: 20 gauge. IV SITE APPEARANCE: Clean,Dry and Intact SIGNATURE: Deborah Cooper RN PATIENT NAME: Cristal Gu DATE: June 14, 2022 TIME: 8:00 AM * Denita Yang RT(R) - 06/14/2022 8:00 AM EST Radiology Service Progress Note PATIENT NAME: Cristal Gu DATE OF SERVICE: June 14, 2022 TIME: 9:23 AM PATIENT IDENTITY VERIFICATION COMPLETED USING TWO (2) IDENTIFIERS: Name and Date of confirmedby patient verbally. FALL SCREENING: Has the patient had 2 falls in the last year or 1 fall with injury or currently using an Ambulatory Assistive Device (Walker, Cane, Wheelchair, Crutches, etc.)? No PATIENT GENDER DATA: Male PATIENT RELEVANT IMPLANT DATA REVIEWED: Not Applicable RADIOLOGY DEPARTMENT: CT; Exam(s) Completed: Chest PERIPHERAL IV DATA: Site assessment: Clean,Dry and Intact, Site disposition Discontinued SIGNED BY: RT Charis(R) June 14, 2022 9:23 AM documented in this encounterCrystal Clinic Orthopedic Center11-22-2022 History of Present illness Narrative* Denita Yang RT(R) - 06/11/2022 2:00 PM EST Radiology Service Progress Note PATIENT NAME: Cristal Gu DATE OF SERVICE: June 11, 2022 TIME: 2:21 PM PATIENT IDENTITY VERIFICATION COMPLETED USING TWO [...] PERIPHERAL IV DATA: Not applicable SIGNED BY: Denita Yang RT(R) June 11, 2022 2:21 PM documented in this encounterCrystal Clinic Orthopedic Center11-22-2022 History of Present illness Narrative* G Erasto Limon MD - 06/11/2022 1:28 PM EST Radiation Oncology - Follow Up Note PATIENT NAME: Cristal Gu PATIENT DIAGNOSIS: Lung cancer, left upper lobe, pleomorphic carcinoma, stage IIb [id number], stage IIB AJCC 8th edition (chest wall [...] left upper lobe, pleomorphic carcinoma, stage IIb [id number], stage IIB AJCC 8th edition (chest wall [...] by: Hector Limon MD cc: Christina Azul [address] [place], [place] [id number] No referring provider defined for this encounter. documented in this encounterCrystal Clinic Orthopedic Center11-18-2022 Miscellaneous Notes* Telephone Encounter - Rosibel [...] 1:45. Rosibel Wheeler LPN documented in this encounterCrystal Clinic Orthopedic Center11-17-2022 Miscellaneous Notes* Telephone Encounter - Yanira Infante - 06/06/2022 9:13 AM EST Called patient to follow up on missed appointment with Radha Palmer PA-C on 05/16. Unable to reach patient or leave a message at the number provided - mailbox is full. documented in this encounterCrystal Clinic Orthopedic Center10-24-2022 Miscellaneous Notes* Telephone Encounter - Yanira Montilla [...] needs at this time. documented in this encounterCrystal Clinic Orthopedic [facility]2022 NotePROCEDURE: XR HIP RT 2 3V WO PELVIS HISTORY: Hip pain COMPARISON: None. FINDINGS: BONES:No fracture, acute abnormality, or significant arthropathy. SOFT TISSUES:No visible soft tissue swelling. EFFUSION:None visible. OTHER: Atherosclerotic coronary artery disease. Endovascular stent within iliac artery. IMPRESSION: 1. No acute bone abnormality or significant degenerative joint disease of the right hip. Electronically authenticated by: TRUDY GUTIERREZ Date: 2022-05-01 17:28[facility]10-12-2022 History of Present illness Narrative* Hector Limon MD - 05/01/2022 12:00 AM EDT [facility] Radiation Oncology Department RADIATION ONCOLOGY - COMPLETION NOTE PATIENT: CRISTAL GUDOB: 1955 DATES OF TREATMENT: 03/26/2022- 05/01/2022 DIAGNOSIS: Lung cancer, left upper lobe, pleomorphic carcinoma, stage IIb [id number], stage IIB AJCC 8th edition (chest wall [...] follow-up. Staff Physician Erasto Limon M.D. / ANJUT 24:03 PM documented in this encounterCrystal Clinic Orthopedic Center10-10-2022 Miscellaneous Notes* Telephone Encounter - Domonique Estrada RN - 04/29/2022 3:10 PM EDT Provided code for pharmacy, patient's medication ran through. * Telephone Encounter - TIFFANY Navarro - 04/29/2022 2:51 PM EDT [facility] [place] called stating they need a dx code for ipratropium documented in this encounterCrystal Clinic Orthopedic Center10-10-2022 Miscellaneous Notes* Telephone Encounter - Merissa Fam RN - 04/29/2022 9:17 AM EDT Pt I today for radiation and was finally able to get nebulizer machine. He does not have the duonebmedication at home and pharmacy will not fill it as it was an old prescription. Please review and sign new Rx if agreeable. Thank you! Merissa Fam RN documented in this encounterCrystal Clinic Orthopedic Center10-03-2022 History of Present illness Narrative* G Erasto Limon MD - 04/22/2022 11:25 AM EDT Radiation Oncology - On Treatment Review (OTR) Note PATIENT NAME: Cristal Gu PATIENT DIAGNOSIS: Lung cancer, left upper lobe, pleomorphic carcinoma, stage IIb [id number], stage IIB AJCC 8th edition (chest wall [...] outlined. Hector Limon MD documented in this encounterCrystal Clinic Orthopedic Center09-28-2022 Miscellaneous Notes* Telephone Encounter - Virgie Dominguez - 04/17/2022 11:14 AM EDT Patient coming in to see you on Friday04/30/22 for follow up with labs. Please add lab orders. Thanks. Virgie Dominguez MA documented in this encounterCrystal Clinic Orthopedic Center09-26-2022 History of Present illness Narrative* Hector Limon MD - 04/15/2022 9:13 AM EDT Radiation Oncology - On Treatment Review (OTR) Note PATIENT NAME: Cristal Gu PATIENT DIAGNOSIS: Lung cancer, left upper lobe, pleomorphic carcinoma, stage IIb [id number], stage IIB AJCC 8th edition (chest wall [...] well. Hector Limon MD documented in this encounterCrystal Clinic Orthopedic Center09-22-2022 Miscellaneous Notes* Telephone Encounter - Rosibel Wheeler LPN - 04/11/2022 12:19 PM EDT Patient states pharmacy did contact him and they are working on it. Rosibel Wheeler LPN * Telephone Encounter - Rosibel Wheeler LPN - 04/01/2022 1:17 PM EDT I called [facility] in [place] to get an update on Okie's nebulizer as he said he does not have one at home. Ofe in the pharmacy is going to look into it to see why this prescription was never completed. Laurence call the patient to get updated insurance information. Rosibel Wheeler LPN documented in this encounterCrystal Clinic Orthopedic Center09-19-2022 History of Present illness Narrative* Hector Limon MD - 04/08/2022 10:18 AM EDT Radiation Oncology - On Treatment Review (OTR) Note PATIENT NAME: Cristal Gu PATIENT DIAGNOSIS: Lung cancer, left upper lobe, pleomorphic carcinoma, stage IIb [id number], stage IIB AJCC 8th edition (chest wall [...] reviewed. Hector Limon MD documented in this encounterCrystal Clinic Orthopedic Center09-14-2022 History of Present illness Narrative* Dominique Gray, [...] Dosing Weight: 58.9 kg Estimated kilocalorie needs: 0550-2088 kilocalories determined by 30-35 kcal/kg Estimated protein needs: 59-88 grams determined by 1.0-1.5 g/kg Dosing weight Estimated fluid needs: ~0825-0655 milliliters based on 1 mL per kcal [...] Gray MS, RDN, LD documented in this encounterCrystal Clinic Orthopedic Center09-12-2022 Miscellaneous Notes* Telephone Encounter - Carolyn Pérez MA - 04/01/2022 3:45 PM EDT [facility] RX can get Fax over The pharmacy need a new Rx [phone] Fax The code need to be on the RX documented in this encounterCrystal Clinic Orthopedic Center09-12-2022 History of Present illness Narrative* Hector Limon MD - 04/01/2022 9:43 AM EDT Radiation Oncology - On Treatment Review (OTR) Note PATIENT NAME: Cristal Gu PATIENT DIAGNOSIS: Lung cancer, left upper lobe, pleomorphic carcinoma, stage IIb [id number], stage IIB AJCC 8th edition (chest wall [...] outlined. Hector Limon MD documented in this encounterCrystal Clinic Orthopedic Center09-06-2022 History of Present illness Narrative* Hector Limon MD - 03/26/2022 9:48 AM EDT Radiation Oncology - On Treatment Review (OTR) Note PATIENT NAME: Cristal Gu PATIENT DIAGNOSIS: Lung cancer, left upper lobe, pleomorphic carcinoma, stage IIb [id number], stage IIB AJCC 8th edition (chest wall [...] prescribed. Hector Limon MD documented in this encounterCrystal Clinic Orthopedic Center08-31-2022 History of Present illness Narrative* Hector Limon MD - 03/20/2022 4:42 PM EDT sim documented in this encounterCrystal Clinic Orthopedic Center08-30-2022 History of Present illness Narrative* Patricia [...] seen for scheduled follow-up. INTERIM HISTORY: [facility] returns for follow-up and labs. He saw [...] (HCC) Peripheral arterial disease (HCC) 2019 R DIRECTOR NEWS stent PAST SURGICAL HISTORY: PAST SURGICAL HISTORY Procedure Laterality Date BACK SURGERY HX 2019 CABG (4) VEIN GRAFTS & ARTERIAL GRAFT(S) 2016 LOWER EXTREMITY CHANGE MANAGEMENT MANAGER W/WO STENT Right 2019 right common femoral [...] told it is likely rosacea. Patricia Miller APRN.CNP I spent a total of 30 minutes on the date of the service which included preparing to see the patient, [id number] patient care, completing clinical documentation, obtaining and/or reviewing separately obtained history, performing a medically appropriate examination, counseling and educating the pat ient/family/caregiver, ordering medications, tests, or procedures, independently interpreting results (not separately reported), and communicating results to the patient/family/caregiver. documented in this encounterCrystal Clinic Orthopedic Center08-25-2022 History of Present illness Narrative* G Erasto Limon MD - 03/14/2022 12:00 AM EDT CRISTAL GU [id number] 03/14/2022 [facility] Radiation Oncology Department SIMULATION NOTE DATE OF SIMULATION: 03/14/2022 THERAPIST: Barbara Severino MACHINE: [employer] DIAGNOSIS: Malignant neoplasm of upper lobe, left bronchus or lungC34.12 AREA: LUNG CONTRAST: None <Select> Consent in Epic: Yes PATIENT POSITION: Supine. FIXATION DEVICE: In order to achieve accurate and reproducible treatments, the patient is immobilized with THE WINGBOARD, B PAD, CUSTOM VACBAG, SBRT KNEE SPONGE 4DCT WAS UTILIZED AT [facility] A time-out was conducted and recorded [...] / NRS 21:18 PM documented in this encounterCrystal Clinic Orthopedic Center08-25-2022 History of Present illness Narrative* Hector Limon MD - 03/14/2022 12:00 AM EDT CRISTAL GU [id number] 03/14/2022 [facility] Department of Radiation Oncology Treatment Planning [...] and DVH. Electronically Signed Erasto Limon M.D. 9/01/09381:37 PM documented in this encounterCrystal Clinic Orthopedic Center08-10-2022 Miscellaneous Notes* Telephone Encounter - Rolanda Roth Pss - 02/27/2022 12:09 PM EDT Called [facility] spoke with Delfina. They received this referral and patient was seen at their office today by Cristy davey PA at 10:00. They will be faxing her note from this visit to our office once it is completed. Rolanda Oneil Pss * Telephone Encounter - Vanessa Fam [facility] - 02/26/2022 2:05 PM EDT Records faxed to [facility]. * Telephone Encounter - Ebony Barcenas [facility] - 02/26/2022 12:58 PM EDT [facility] derm scheduling out to April. Tomasa will you please fax records to [facility] jose [phone]. They will call pt to schedule, demo in your box. Thanks! * Telephone Encounter - Denita Rai RN - 02/26/2022 12:50 PM EDT Clerical: Please schedule pt w/ [facility]. Pt willing to see local or [facility]. Thanks, Denita Rai, RN * Telephone Encounter - Patricia Miller APRN.TYPEWRITER TESTER - 02/26/2022 12:49 PM EDT Signed. Patricia Miller APRN.TYPEWRITER TESTER * Telephone Encounter - Denita Rai RN [...] all day. Pt has not seen a buffer inflated pad for his skin issue. Consult order pended if you agree. Denita Rai RN documented in this encounterCrystal Clinic Orthopedic Center08-03-2022 History of Present illness Narrative* Patricia [...] rash is still pruritic. He is applying [id number]. He denies fevers, chills, night sweats and [...] (HCC) Peripheral arterial disease (HCC) 2019 R DIRECTOR NEWS stent PAST SURGICAL HISTORY: PAST SURGICAL HISTORY Procedure Laterality Date BACK SURGERY HX 2019 CABG (4) VEIN GRAFTS & ARTERIAL GRAFT(S) 2016 LOWER EXTREMITY CHANGE MANAGEMENT MANAGER W/WO STENT Right 2019 right common femoral [...] hemoglobin has improved to 10.2. Patricia Miller APRN.CNP documented in this encounterCrystal Clinic Orthopedic Center07-25-2022 Miscellaneous Notes* Telephone Encounter - Denita [...] Telephone Encounter - Patricia Miller APRN.RONAL - 02/11/2022 10:25 AM EDT Can try a medrol-dose pack. Thanks. Patricia Miller APRN.TYPEWRITER TESTER * Telephone Encounter - Denita Rai RN [...] possible. Denita Rai RN documented in this encounterCrystal Clinic Orthopedic Center07-21-2022 Miscellaneous Notes* Telephone Encounter - Lisa Figueroa - 02/07/2022 4:30 PM EDT Patient sent to [facility] for TSC. Faxed order to [facility] scheduling February 07, 2022 4:31 PM And the department is going to work with patient tomorrow. Lisa Figueroa documented in this encounterCrystal Clinic Orthopedic Center07-21-2022 History of Present illness Narrative* Patricia Miller APRN.TYPEWRITER TESTER - 02/07/2022 2:30 PM EDT PATIENT NAME: [...] (HCC) Peripheral arterial disease (HCC) 2019 R DIRECTOR NEWS stent PAST SURGICAL HISTORY: PAST SURGICAL HISTORY Procedure Laterality Date BACK SURGERY HX 2019 CABG (4) VEIN GRAFTS & ARTERIAL GRAFT(S) 2016 LOWER EXTREMITY CHANGE MANAGEMENT MANAGER W/WO STENT Right 2019 right common femoral [...] 2015. Status post CABG x 4 in [place] 2015. Currently stable. Continue management per PCP/cardiology. [...] PRBCs. Patricia Miller APRN.RONAL documented in this encounterCrystal Clinic Orthopedic Center07-13-2022 Nurse Note* Merissa Fam RN - 01/30/2022 5:02 PM EDT Radiation Therapy - Patient Education Note PATIENT NAME: Cristal Gu PATIENT January 30, 2022 [facility] FACILITY/LOCATION: [facility] READINESS TO LEARN Cognitive Ability: Alert [...] need for social work, van service, and colorer. Signed by: Merissa Fam RN documented in this encounterCrystal Clinic Orthopedic Center07-13-2022 History of Present illness Narrative* G Erasto Limon MD - 01/30/2022 3:00 PM EDT Radiation Oncology -follow-up note PATIENT NAME: Cristal Gu PATIENT REQUESTING PROVIDER: Dr. Grigsby DIAGNOSIS: 66 year old male with lung cancer, left upper lobe, pleomorphic carcinoma, stage IIb [id number], stage IIB AJCC 8th edition (chest wall [...] (HCC) Peripheral arterial disease (HCC) 2019 R DIRECTOR NEWS stent Prior radiation therapy, collagen vascular disease, or inflammatory bowel disease: No PAST SURGICAL HISTORY Procedure Laterality Date BACK SURGERY HX 2019 CABG (4) VEIN GRAFTS & ARTERIAL GRAFT(S) 2016 LOWER EXTREMITY CHANGE MANAGEMENT MANAGER W/WO STENT Right 2019 right common femoral [...] left upper lobe, pleomorphic carcinoma, stage IIb [id number], stage IIB AJCC 8th edition (chest wall [...] by: Hector Limon MD cc: Christina Azul [facility] [place] [address] Nina Grigsby ([facility]) [address] [place] [address] [place] [id number] documented in this encounterCrystal Clinic Orthopedic Center07-12-2022 History of Present illness Narrative* Ton Cervantes CRT - 01/29/2022 7:59 AM EDT PULM FUNCTION SMARTBLOCK: Provider: Verito Whelan MD Spirometry w/BD: 1 DLCO: 1 System: 5 - [id number] documented in this encounterCrystal Clinic Orthopedic Center07-12-2022 History of Present illness Narrative* Verito [...] 9 on presentation. 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 He smoked 75 [...] (HCC) Peripheral arterial disease (HCC) 2019 R DIRECTOR NEWS stent PAST SURGICAL HISTORY Procedure Laterality Date BACK SURGERY HX 2019 CABG (4) VEIN GRAFTS & ARTERIAL GRAFT(S) 2016 LOWER EXTREMITY CHANGE MANAGEMENT MANAGER W/WO STENT Right 2019 right common femoral [...] Normal Neuro: Gait normal. Labs and imaging: [facility] [address] [place] [address] Test Date: 2022-01-29 Pat Name: CRISTAL GU Department: Room: Gender: Male Electronics Worker: : 1955 Requested By: Order Number: [id number] Reading MD: Interpretive Statements Pre BD: FVC [...] for spirometry met. // IMPRESSION: Site: ID: [id number] Name: CRISTAL GU Visit Date: 01/29/2022 Doctor: Electronics Worker: Ton Cervantes Age: 66 Date of : [...] 0.69 0.27 1.69 0.40 57 0.52 30 [id number] (L/sec) 2.45 1.14 4.26 1.07 43 1.27 [...] 2.68 BLOOD GASES HgbGmL (gm/L) 120-180 94 [facility] [address] [place] [address] Test Date: 2021-05-21 Pat Name: CRISTAL GU Department: Room: Gender: Male Electronics Worker: : 1955 Requested By: Order Number: [id number] Reading MD: Interpretive Statements PRE AND POST [...] and carboxyhemoglobin corrected. // IMPRESSION: Site: ID: [id number] Name: CRISTAL GU Visit Date: 05/21/2021 Doctor: Electronics Worker: Merissa Ashley Age: 66 Date of : [...] 0.70 0.27 1.71 0.17 24 0.28 63 DUI47-51 (L/sec) 2.48 1.16 4.30 0.44 17 0.73 [...] * No suspicious FDG avid osseous lesion. Pipe Smoking Machine Operator: KENAN Transcribe Date/Time: May 28 2021 9:33A Dictated [...] in 3 months Verito Whelan MD Respiratory [facility] documented in this encounterCrystal Clinic Orthopedic Center07-12-2022 History of Present illness Narrative* Ana Borja RT(R) - 01/29/2022 7:00 AM EDT Radiology Service [...] 29, 2022 7:40 AM documented in this encounterCrystal Clinic Orthopedic Center07-05-2022 History of Present illness Narrative* Nina [...] (HCC) Peripheral arterial disease (HCC) 2019 R DIRECTOR NEWS stent PAST SURGICAL HISTORY: PAST SURGICAL HISTORY Procedure Laterality Date BACK SURGERY HX 2019 CABG (4) VEIN GRAFTS & ARTERIAL GRAFT(S) 2016 LOWER EXTREMITY CHANGE MANAGEMENT MANAGER W/WO STENT Right 2019 right common femoral [...] 2015. Status post CABG x 4 in [place] 2015. Currently stable. Continue management per PCP/cardiology. [...] 8. Nina Grigsby MD documented in this encounterCrystal Clinic Orthopedic Center06-27-2022 History of Present illness Narrative* Nina [...] (HCC) Peripheral arterial disease (HCC) 2019 R DIRECTOR NEWS stent PAST SURGICAL HISTORY: PAST SURGICAL HISTORY Procedure Laterality Date BACK SURGERY HX 2019 CABG (4) VEIN GRAFTS & ARTERIAL GRAFT(S) 2016 LOWER EXTREMITY CHANGE MANAGEMENT MANAGER W/WO STENT Right 2019 right common femoral [...] 8. Nina Grigsby MD documented in this encounterCrystal Clinic Orthopedic Center06-06-2022 Miscellaneous Notes* Telephone Encounter - Denita Rai RN - 12/24/2021 2:32 PM EDT Pt notified of script and verbalizes understanding. Denita Rai RN * Telephone Encounter - Nina Grigsby MD - 12/24/2021 12:31 PM EDT We will send prescription for KCl 10 M EQ's daily. Please inform the patient. Thanks, BRM * Telephone Encounter - Kelly Hyman RN - 12/24/2021 12:24 PM EDT Potassium level 3.2 today. Pt is able to take pills without difficulty and [facility] [place] [facility]. documented in this encounterCrystal Clinic Orthopedic Center06-06-2022 History of Present illness Narrative* Denisse Campbell RN - 12/24/2021 11:53 AM EDT . documented in this encounterCrystal Clinic Orthopedic Center06-06-2022 History of Present illness Narrative* Nina [...] (HCC) Peripheral arterial disease (HCC) 2019 R DIRECTOR NEWS stent PAST SURGICAL HISTORY: PAST SURGICAL HISTORY Procedure Laterality Date BACK SURGERY HX 2019 CABG (4) VEIN GRAFTS & ARTERIAL GRAFT(S) 2016 LOWER EXTREMITY CHANGE MANAGEMENT MANAGER W/WO STENT Right 2019 right common femoral [...] 8. Nina Grigsby MD documented in this encounterCrystal Clinic Orthopedic Center05-26-2022 Miscellaneous Notes* Telephone Encounter - Yanira Frias [facility] - 12/13/2021 1:16 PM EDT Called patient [...] ok at this time. documented in this encounterCrystal Clinic Orthopedic Center05-18-2022 Miscellaneous Notes* Telephone Encounter - Denita [...] better than cycle 1. 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 Do you need [...] protocol. Denita Rai RN documented in this encounterCrystal Clinic Orthopedic Center05-16-2022 History of Present illness Narrative* Denita [...] N/A Denita Rai RN documented in this encounterCrystal Clinic Orthopedic Center05-16-2022 History of Present illness Narrative* Yusef [...] (HCC) Peripheral arterial disease (HCC) 2019 R DIRECTOR NEWS stent PAST SURGICAL HISTORY: PAST SURGICAL HISTORY Procedure Laterality Date BACK SURGERY HX 2019 CABG (4) VEIN GRAFTS & ARTERIAL GRAFT(S) 2016 LOWER EXTREMITY CHANGE MANAGEMENT MANAGER W/WO STENT Right 2019 right common femoral [...] scheduled. Yusef Pandya PA-C documented in this encounterCrystal Clinic Orthopedic Center05-16-2022 Miscellaneous Notes* Telephone Encounter - Vanessa Fam [facility] - 12/03/2021 9:01 AM EDT Records faxed. * Telephone Encounter - Alexandria Spicer Sec - 11/30/2021 11:08 AM EDT Appt with PCP Dr Azul for hypotension on Friday12-07-21 1:45pm Pérez Randolph is known to Dr azul but please send most recent records including med list and Blood pressure. Dr Azul has a new fax # [phone] documented in this encounterCrystal Clinic Orthopedic Center05-13-2022 History of Present illness Narrative* Patricia Miller APRN.TYPEWRITER TESTER - 11/30/2021 10:41 AM EDT PATIENT NAME: [...] (HCC) Peripheral arterial disease (HCC) 2019 R DIRECTOR NEWS stent PAST SURGICAL HISTORY: PAST SURGICAL HISTORY Procedure Laterality Date BACK SURGERY HX 2019 CABG (4) VEIN GRAFTS & ARTERIAL GRAFT(S) 2016 LOWER EXTREMITY CHANGE MANAGEMENT MANAGER W/WO STENT Right 2019 right common femoral [...] CT. [facility]. Clinical evaluation most consistent with [...] treatment. Patricia Miller APRN.RONAL documented in this encounterCrystal Clinic Orthopedic Center05-13-2022 Nurse Note* Pavithra Jacinto MA - 11/30/2021 10:31 AM EDT Patient states he is feeling better today, he even went out for Breakfast. Pavithra Jacinto MA documented in this encounterCrystal Clinic Orthopedic Center05-12-2022 Miscellaneous Notes* Telephone Encounter - Denita [...] advise? Denita Rai RN documented in this encounterCrystal Clinic Orthopedic Center05-09-2022 History of Present illness Narrative* Nina [...] (HCC) Peripheral arterial disease (HCC) 2019 R DIRECTOR NEWS stent PAST SURGICAL HISTORY: PAST SURGICAL HISTORY Procedure Laterality Date BACK SURGERY HX 2019 CABG (4) VEIN GRAFTS & ARTERIAL GRAFT(S) 2016 LOWER EXTREMITY CHANGE MANAGEMENT MANAGER W/WO STENT Right 2019 right common femoral [...] closely. Nina Grigsby MD documented in this encounterCrystal Clinic Orthopedic Center05-02-2022 Miscellaneous Notes* Telephone Encounter - Denita [...] 2.09 Ros Navarro RN documented in this encounterCrystal Clinic Orthopedic Center05-02-2022 Miscellaneous Notes* Telephone Encounter - Denita Rai RN - 11/19/2021 11:39 AM EDT Voicemail message received from Jaclyn @ Dr Azul's office. They can see pt tomorrow @ 1030 AM. Pt notified and states that he has an appointment in [place] tomorrow. Call placed to Dr Azul's office. [...] back. Denita Rai RN documented in this encounterCrystal Clinic Orthopedic Center05-02-2022 Miscellaneous Notes* Telephone Encounter - Denita Rai RN - 11/19/2021 9:42 AM EDT DISCHARGE CALL BACK Today's date: November 19, 2021 Notified of Pt discharge by: Hospital records requested. Patient discharged on 11/18/2021 from [facility] to Home Primary Cancer Diagnosis: Lung Cancer Admitting Diagnosis: Hypertension, Acute renal failure Discharge Summary/SBAR reviewed: Yes Handoff Discussed with Transitional Flash Drier Operator: NO Psychosocial Risk Factors: None If [...] back. Denita Rai RN documented in this encounterCrystal Clinic Orthopedic Center04-29-2022 Miscellaneous Notes* Telephone Encounter - Denita Rai RN - 11/16/2021 4:41 PM EDT Pt notified and verbalizes understanding. Agrees to go to [facility] for eval. Report phoned to Kelli @ [facility]. Med list and today's labs faxed. 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 Advised he notify his anchor tacker of his readings. Any other suggestions for him? Should he go to the ER since it is so late in the day? Denita Rai RN documented in this encounterCrystal Clinic Orthopedic Center04-29-2022 Miscellaneous Notes* Telephone Encounter - Yusef [...] Please place orders for IV fluids. Thanks! Deniat Rai RN documented in this encounterCrystal Clinic Orthopedic Center04-29-2022 History of Present illness Narrative* Vanessa Cruz RN - 11/16/2021 9:17 AM EDT Creat 2.33. Catie, healthcare prof spoke with Dr. Grigsby and to patient. Patient is to come in on Friday for repeat labs and IVF. Vanessa Cruz RN * Aurelia Bradley RN - 11/16/2021 9:05 AM EDT Pt took BP meds at about 0930, he will recheck his BP at home in 2 hours. Aurelia Bradley RN documented in this encounterCrystal Clinic Orthopedic Center04-27-2022 Miscellaneous Notes* Telephone Encounter - Yusef [...] the treatment schedule. Thanks! documented in this encounterCrystal Clinic Orthopedic Center04-26-2022 History of Present illness Narrative* MARGARET Finnegan - 11/13/2021 3:59 PM EDT SOCIAL WORK FOLLOW UP NOTE: [facility] Date of service:11/13/21 [place] seen for [place] follow [...] as appropriate. SUMA Finnegan documented in this encounterCrystal Clinic Orthopedic Center04-26-2022 History of Present illness Narrative* Vanessa Cruz RN - 11/13/2021 11:35 AM EDT IVF today and labs tomorrow. Vanessa Cruz RN documented in this [facility]04-25-2022 Miscellaneous Notes* Telephone Encounter - Yusef Pandya PA-C - 11/12/2021 12:23 PM EDT Orders signed Yusef Pandya PA-C * Telephone Encounter - Denita Rai RN - 11/12/2021 12:11 PM EDT Pt notified and verbalizes understanding. BRIke/Yusef: BMP orders for Friday pended. Please review [...] labs again on 11/14. documented in this encounterCrystal Clinic Orthopedic Center04-22-2022 Miscellaneous Notes* Telephone Encounter - Denita [...] protocol. Denita Rai RN documented in this encounterCrystal Clinic Orthopedic Center04-18-2022 History of Present illness Narrative* Patricia Miller APRN.TYPEWRITER TESTER - 11/05/2021 9:00 AM EDT PATIENT NAME: [...] (HCC) Peripheral arterial disease (HCC) 2019 R DIRECTOR NEWS stent PAST SURGICAL HISTORY: PAST SURGICAL HISTORY Procedure Laterality Date BACK SURGERY HX 2019 CABG (4) VEIN GRAFTS & ARTERIAL GRAFT(S) 2016 LOWER EXTREMITY CHANGE MANAGEMENT MANAGER W/WO STENT Right 2019 right common femoral [...] was smoking on and off fully quit 2/25/22 Substance Use Topics Alcohol use: Yes Alcohol/week: [...] care would be adjuvant chemotherapy with a [place] doublet followed by adjuvant radiation therapy. His [...] 2015. Status post CABG x 4 in [place] 2015. Currently stable. Continue management per PCP/cardiology. [...] indicated. Patricia Miller APRN.RONAL documented in this encounterC[facility]04-13-2022 History of Present illness Narrative* Jacklyn [...] Clean,Dry and Intact, Site disposition Discontinued Iwona Cassidy, A.A.SJudi,RT (R) (CT)(MR) October 31, 2021 2:46 PM documented in this encounterCrystal Clinic Orthopedic Center04-12-2022 Miscellaneous Notes* Telephone Encounter - Denita Rai RN - 10/30/2021 10:33 AM EDT Spoke w/ Jaz regarding pt's MRI. Informed her that the pt is currently scheduled to have this done @ [facility] in [place]. No need to schedule w/ [facility] at this time. Informed her that the pt is aware of his [place] appointment. Denita Rai RN * Telephone Encounter - Denita Rai RN - 10/30/2021 10:22 AM EDT 3rd attempt made to contact Jaz @ [facility] Scheduling. No answer. Message left requesting call back. Denita Rai RN * Telephone Encounter - Denita Rai RN - 10/29/2021 11:27 AM EDT 2nd attempt made to contact Jaz @ [facility]. No answer. Message left requesting call back. Denita Rai RN * Telephone Encounter - Denita Rai RN - 10/26/2021 3:40 PM EDT Voicemail message received from [facility] Central Scheduling requesting to speak w/ a nurse regarding pt's MRI. Call placed to number provided. No answer. Message left requesting call back. Denita Rai RN documented in this encounterCrystal Clinic [facility] Center04-12-2022 Miscellaneous Notes* Telephone Encounter - Denita Rai RN - 10/30/2021 8:59 AM EDT FYI: Pt does not wish to enroll in a trial at this time. Denita Rai RN documented in this encounterCrystal Clinic [facility] Center04-11-2022 Miscellaneous Notes* Telephone Encounter - Patricia Miller APRN.RONAL - 10/29/2021 11:25 AM EDT The following [...] Thanks! Denita Rai RN documented in this encounterCrystal Clinic Orth[facility] Center04-11-2022 History of Present illness Narrative* Denita Rai RN - 10/29/2021 10:58 AM EDT Flash Drier Operator Pre Chemo Patient identified by name and date of . YES Confirmed date and time for chemotherapy ? YES Other appointments (labs, imaging) discussed? YES Discussed where to park (bill sorter), charge for parking NO Discussed where to [...] N/A Denita Rai RN documented in this encounterCrystal Clinic Orthopedic Center04-11-2022 History of Present illness Narrative* Katlin Omer, [facility] - 10/29/2021 10:53 AM EDT Images from the original note were not included. [facility] Department of Pharmacy Oncology Pharmacy [...] patient Katlin Omer RPh documented in this encounterCrystal Clinic Orthopedic Center04-08-2022 Miscellaneous Notes* Telephone Encounter - Bernadine [...] Thanks! Denita Rai RN documented in this encounterCrystal Clinic Orthopedic Center04-07-2022 Miscellaneous Notes* Telephone Encounter - Denita Rai RN - 10/25/2021 8:10 AM EDT Scripts for antiemetics and folic acid pended. Please review and approve. Thanks, Denita Rai RN documented in this [facility]04-06-2022 History of Present illness Narrative* Hector Limon MD - 10/24/2021 3:02 PM EDT Radiation Oncology - New Patient/Consult Note PATIENT NAME: Cristal Gu PATIENT REQUESTING PROVIDER: Dr. Grigsby DIAGNOSIS: 66 year old male with lung cancer, left upper lobe, pleomorphic carcinoma, stage IIb [id number], stage IIB AJCC 8th edition (chest wall [...] (HCC) Peripheral arterial disease (HCC) 2019 R DIRECTOR NEWS stent Prior radiation therapy, collagen vascular disease, or inflammatory bowel disease: No PAST SURGICAL HISTORY Procedure Laterality Date BACK SURGERY HX 2019 CABG (4) VEIN GRAFTS & ARTERIAL GRAFT(S) 2016 LOWER EXTREMITY CHANGE MANAGEMENT MANAGER W/WO STENT Right 2019 right common femoral [...] left upper lobe, pleomorphic carcinoma, stage IIb [id number], stage IIB AJCC 8th edition (chest wall [...] by: Hector Limon MD cc: Christina Azul [facility] [place] [address] Nina Grigsby ([facility]) [address] [place] [address] [place] [address] documented in this encounterCrystal Clinic Orthopedic Center04-04-2022 Miscellaneous Notes* Telephone Encounter - Raine Gallegos RN - 10/22/2021 11:16 AM EDT Returned call to Mr Gu and identified self by name and title. Cristal explained that he had received a call from his [employer] company who questioned thelocation of his upcoming MRI. Cristal was a bit confused after the call and wanted to confirm that our office did not have any concerns regarding completing his MRI at [facility]. I assured Cristal that his insurance has authorized the imaging and it may be completed at any F location. He was scheduled for first available, and voiced comfort with driving to [place]. No additional questions at this time. Raine METZ, RN Specialty Flash Drier Operator * Telephone Encounter - Mary Alice Cabezas ADM - 10/19/2021 3:48 PM EDT Cristal Gu is calling Renetta Ponce MD today regarding Care Coordination, calling to discuss going to another hospital for his MRI. Patient has been identified by name and birthdate. Duration of symptoms: N/A Requesting response back: call on cell [phone] (home) [phone] (cell) Mary Alicegeorgia Matamarguerite SAMANIEGO October 19, 2021 documented in this encounterCrystal Clinic Orthopedic Center04-01-2022 History of Present illness Narrative* Renetta Ponce MD - 10/19/2021 2:40 PM EDT Images from the original note were not included. [facility] [place] NEW PATIENT VISIT Department of Hematology and Medical Oncology PATIENT NAME: Cristal Gu NO.: [id number] DATE OF SERVICE: 10/19/2021 PCP: Christina Azul MD REFERRING PROVIDER: Marianne Fields MD. DIAGNOSIS: Pleomorphic carcinoma of the DARCIE STAGE: [id number], stage IIB AJCC 8th edition (chest wall [...] disease, PAD s/p stenting, NSTEMI s/p CABG [id number] and alcohol use who presents to discuss [...] nodule, now [facility] 2.[facility] cm. [facility] He saw Dr. Fields from thoracic surgery and had a PET CT at [facility] which showed hypermetabolic uptake in the DARCIE [...] (HCC) Peripheral arterial disease (HCC) 2019 R DIRECTOR NEWS stent PAST SURGICAL HISTORY: PAST SURGICAL HISTORY Procedure Laterality Date BACK SURGERY HX 2019 CABG (4) VEIN GRAFTS & ARTERIAL GRAFT(S) 2016 LOWER EXTREMITY CHANGE MANAGEMENT MANAGER W/WO STENT Right 2019 right common femoral [...] [id number] 204 Recent Labs 10/04/21 04210/03/21 0311 10/02/21 0442 10/01/21 0616 09/25/21 1056 [...] receive therapy closer to home at the [facility] location. I will place a referral for him to see oncology at that site. All questions and concerns have been addressed. Renetta Ponce MD, FACP Associate Staff [facility] October 19, 2021 CC: Marianne Fields MD documented in this encounterCrystal Clinic Orthopedic Center04-01-2022 Miscellaneous Notes* Telephone Encounter - Virgie Dominguez - 01/14/2022 9:30 AM EDT Patient scheduled to see you on Friday01/22/22 for follow up treatment. Please add lab orders. ThanksVirgie MA documented in [place] encounterSandra [place]ille [address]-01-2022 Miscellaneous Notes* Telephone Encounter - Virgie Dominguez - 01/30/2022 12:49 PM EDT Patient coming in on 02/07/22 for follow up labs. Please add lab orders. Virgie Dennis MA documented in [place] encounterSandra [place]ille [address]-01-2022 Nurse Note* Denisse Brasher LPN - 10/19/2021 9:56 AM EDT Additional intake questions: Has the patient had fever, nausea, vomiting, diarrhea, constipation, fatigue for > 1 week? No Does the patient have a decreased appetite? No Does patient want to see a Scientific Laboratory Supervisor? No (yes to any of above refer patient to schedulers for dietitian appointment) ) Does patient have any new or increased numbness or tingling of extremities? No Is patient interested in fertility information? No Does patient need any prescription refills? No Does patient have an advanced directive in place? No, Patient referred to [facility] Electronically Signed By: Denisse Brasher LPN documented in this encounterCrystal Clinic Orthopedic Center03-24-2022 History of Present illness Narrative* Aracelis Carrillo APRN.TYPEWRITER TESTER - 10/11/2021 3:22 PM EDT Images from the original note were not included. [facility] - OUTPATIENT THORACIC SURGERY CLINIC NOTE PT NAME: [facility] NO: [id number] THORACIC SURGEON: Dr Marianne Fields DATE OF [...] in-situ hybridization tests have been determined by [facility] Pathology and Laboratory Medicine [place] [facility] in a manner consistent with CLIA requirements. One or more of these tests have not been cleared or approved by the FDA. [facility] is regulated under CLIA as qualified to [...] 11/20/21 - oncology consult at the [facility] in [place] Aracelis Carrillo APRN.CNP documented in this encounterCrystal Clinic Orthopedic Center03-24-2022 History of Present illness Narrative* RT [...] PERIPHERAL IV DATA: Not applicable SIGNED BY: IGGY Little) October 11, 2021 3:11 PM documented in this encounterCrystal Clinic Orthopedic Center11-08-2021 Procedure note* Vanessa Joaquin RT(R) - [...] found usingthis link: [email or web address] SIGNATURE: RT Ayaz(Marcella) PATIENT NAME: Cristal Gu DATE: May 28, 2021 TIME: 8:14 AM PAGER/CONTACT #: documented in this encounterCrystal Clinic Orthopedic CenterDischarge summary Author Jair Nichols [facility] March 20, 2024 2:40pm Note Date/Time March 20, 2024 2: 40pm [facility] [address] [place] [address] Discharge Summary Signed Patient: Cristal Gu MR#: [id number] : 1955 Acct:[id number] Age/Sex: 69 / M Adm Date: 4 Loc: Room: [address] [place] [address]: Jair Nichols MD Copies to: [...] can be found in the EHR of [facility]. The patient left hospital appropriately [...] % (Auto) 82.3, Lymph % (Auto) 8.6, [place] % (Auto) 8.7, Eos % (Auto) 0.2, Baso % (Auto) 0.2, Nucleat RBC Rel Count 0.0, Neut # (Auto) 4.8, Lymph # (Auto) 0.5 L, [place] # (Auto) 0.5, Eos # (Auto) 0.0, [...] signed by Jair Nichols MD> 03/20/24 1440 [facility] Work Phone: Evaluation note* Diagnosis Malignant neoplasm of upper lobe of left lung (HCC)- Primary documented in this encounter [facility] CenterEval[facility]el[facility]* Diagnosis Follow-up examination following surgery Follow-up examination, following unspecified surgery documented in this encounter [facility]* Diagnosis Malignant neoplasm of upper lobe of left lung (HCC) documented in this encounter [facility]* Diagnosis Malignant neoplasm of upper lobe of left lung (HCC)- Primary documented in this encounter [facility] CenterEvaluation [facility]* Diagnosis Malignant neoplasm of upper lobe of left lung (HCC)- Primary [facility]* Diagnosis Malignant neoplasm of upper lobe of left lung (HCC) documented in this encounter [facility]* Diagnosis Malignant neoplasm of upper lobe of left lung (HCC)- Primary documented in this encounter [facility]* Diagnosis [...] failure, unspecified [facility]* Diagnosis Acute kidney injury (HCC)- Primary Acute kidney failure, unspecified Malignant neoplasm of upper lobe of left lung (HCC) documented in this [facility]* Diagnosis Malignant neoplasm of upper lobe of left lung (HCC)- Primary Acute kidney injury (HCC) Acute kidney failure, unspecified documented in this [facility]* Diagnosis Malignant neoplasm of upper lobe of left lung (HCC)- Primary Acute kidney injury (HCC) Acute kidney failure, unspecified documented in this [facility]* Diagnosis Malignant neoplasm of upper lobe of left lung (HCC)- Primary Acute kidney injury (HCC) Acute kidney failure, unspecified documented in this encounter [facility]* Diagnosis Malignant neoplasm of upper lobe of left lung (HCC)- Primary Acute kidney injury (HCC) Acute kidney failure, unspecified documented in this encounter [facility] [...] and subcutaneous tissue documented in this encounter [facility]* Diagnosis Malignant neoplasm of upper lobe of left lung (HCC)- Primary 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 documented [facility] encounter [facility]* Diagnosis Chronic obstructive pulmonary disease, unspecified COPD type (HCC) Lung nodule Solitary pulmonary nodule documented in this encounter [facility]* Diagnosis Chronic obstructive pulmonary disease, unspecified COPD type (HCC) Lung nodule Solitary pulmonary nodule documented [facility] encounter [facility]* Diagnosis Chronic obstructive pulmonary disease, unspecified COPD type (HCC) Malignant neoplasm of upper lobe of left lung (HCC) PAD (peripheral artery disease) (HCC) Peripheral vascular disease, unspecified documented in this encounter [facility]* Diagnosis Malignant neoplasm of upper lobe of left lung (HCC) documented in this encounter [facility]* Diagnosis Malignant neoplasm of upper lobe of left lung (HCC)- Primary documented in this encounter [facility]* Diagnosis Malignant neoplasm of upper lobe of left lung (HCC)- Primary 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 Acute kidney injury (HCC) Acute kidney failure, unspecified Skin infection Unspecified local infection of skin and subcutaneous tissue documented in this encounter [facility]* Diagnosis Malignant neoplasm of upper lobe of left lung (HCC)- Primary 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 Acute kidney injury (HCC) Acute kidney failure, unspecified Skin infection Unspecified local infection of skin and subcutaneous tissue documented in this encounter [facility]* Diagnosis Chronic obstructive pulmonary disease, unspecified COPD type (HCC)- Primary documented in this encounter [facility]* Diagnosis Skin rash- Primary Rash and other nonspecific skin eruption documented in this encounter [facility]* Diagnosis Malignant neoplasm of upper lobe of left lung (HCC)- Primary 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 Skin infection Unspecified local infection of skin and subcutaneous tissue Rash Rash and other nonspecific skin eruption documented in this encounter [facility]* Diagnosis Malignant neoplasm of upper lobe of left lung (HCC)- Primary documented in this encounter [facility]Eval[facility] noteNo assessment information availableOhiohealth [facility] Hospital Work Phone: Evaluation note* Diagnosis Malignant [...] condition classified elsewhere [facility] Diagnosis Malignant neoplasm of upper [...] Centrilobular emphysema (HCC) Other emphysema CAD in [place] artery Coronary atherosclerosis of [place] coronary artery PVD (peripheral vascular disease) (HCC) Peripheral vascular disease, unspecified Cancer related pain Neoplasm related pain (acute) (chronic) Tonsillar mass Swelling, mass, or lump in head and neck Abnormal LFTs Other abnormal blood chemistry Anxiety Anxiety state, unspecified Hypothyroidism due to medication [facility]* Diagnosis Oropharnyx cancer (HCC)- Primary [facility]* Diagnosis Palliative care by specialist- Primary Primary malignant neoplasm of left lung metastatic to other site (HCC) Cancer related pain Neoplasm related pain (acute) (chronic) Opioid contract exists Encounters for other specified administrative purpose 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 due to medical condition classified elsewhere Anorexia Protein-calorie malnutrition, unspecified severity (HCC) Nausea Nausea alone documented [facility]* Diagnosis 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 Tonsillar mass Swelling, mass, or lump in head and neck Primary hypertension Unspecified essential hypertension Centrilobular emphysema (HCC) Other emphysema Coronary artery disease involving [place] coronary artery of [place] heart without angina pectoris Hypothyroidism due to medication Cancer related pain Neoplasm related pain (acute) (chronic) documented in this encounter [facility]* Diagnosis 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 Tonsillar mass Swelling, mass, or lump in head and neck Hypothyroidism due to medication Centrilobular emphysema (HCC) Other emphysema 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) documented in [facility] encounter [facility]* Diagnosis 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 Tonsillar mass Swelling, mass, or lump in head and neck 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) [facility]* Diagnosis 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) [facility]* Diagnosis 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 due to medical condition classified elsewhere Anorexia documented in this [facility]* Diagnosis Neoplasm related pain- Primary Neoplasm related pain (acute) (chronic) documented in this encounter [facility]* [...] Loss of weight documented [facility]* Diagnosis Primary malignant neoplasm of [...] (acute) (chronic) documented [facility] [...] pain (acute) (chronic) documented in this encounter [facility]* Diagnosis Left arm swelling- Primary Swelling of limb Cyanosis of tip of finger Cyanosis documented [facility]* Diagnosis 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) [facility]* Diagnosis Malignant neoplasm of upper lobe of left lung (HCC)- Primary [facility]* Diagnosis 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) [facility]* Diagnosis Abnormal CT scan, neck- Primary Other nonspecific (abnormal) findings on radiological and other examinations of body structure Sore throat Acute pharyngitis [facility]* Diagnosis Centrilobular emphysema (HCC)- Primary Other emphysema Malignant neoplasm of upper lobe of left lung (HCC) Coronary artery disease involving [place] coronary artery of [place] heart without angina pectoris PAD (peripheral artery [...] of left lung acute Unsteady gait acute [facility] Work Phone: Evaluation note* Diagnosis 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 Swelling of arm Swelling of limb 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) [facility]* Diagnosis Primary malignant neoplasm of [...] lung metastatic to other site (HCC)- Primary Altered mental status, unspecified altered mental status [...] or lung (HCC) documented in this encounter [facility]* Diagnosis Lung nodules Other nonspecific abnormal finding of lung field documented in this encounter [facility]* Diagnosis Malignant neoplasm of upper lobe of left lung (HCC) documented in this encounter [facility]* Diagnosis Malignant neoplasm of unspecified part of unspecified bronchus or lung (HCC) documented in this encounter [facility]* Diagnosis 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 due to medical condition classified elsewhere Anxiety about health documented in this encounter [facility] Discharge instructions Additional Instructions Please follow-up with Dr. Grigsby's office call tomorrow let them know that you were seen in the emergency department Please return here if you develop any chest pain, shortness of breath, numbness, tingling or any other concernsOhiohealth Berger Hospital Work Phone: Hospital Discharge instructions Additional Instructions If your symptoms return/worsen or you develop any further concerns or symptoms please see your doctor or return to the emergency department immediately. As we discussed admission for further management is recommended but you will follow-up with your oncologist and your PCP. You may return to the emergency department should you change her mind.[facility] Work Phone: Hospital Discharge instructions Additional Instructions Call [facility] Central Scheduling on Friday at [phone] to schedule outpatient Brain MRI. The MRI may require prior authorization through your insurance before it can be scheduled, central scheduling will assist with this if it is needed.[facility] Work Phone: Reason for referral (narrative)* Diagnostic Procedure Only (Routine) - Pending Review Specialty Diagnoses / Procedures Referred By Contac t Referred To Contact MOLECULAR & FUNCTIONAL IMAGING Diagnoses Malignant neoplasm of unspecified part of unspecified bronchus or lung (HCC) Procedures NM BONE WHOLE BODY BONE &/JOINT IMAGING WHOLE BODY Hector Limon MD [address] [place] [address] [place] [address] Molecular & Functional Imaging [address] [place] [id number] Referral ID Status Reason Start Date Expiration Date Visits Requested Visits Authorized [id number] Pending Review Auto-Generat ed Referral 04/08/2022 05/08/2023 1 1 [facility] for referral (narrative)* Diagnostic Procedure Only (Routine) - Authorized Specialty Diagnoses / Procedures Referred By Contac t Referred To Contact MOLECULAR & FUNCTIONAL IMAGING Diagnoses Lung nodules Procedures NM PET/CT SKULL-THIGH SUBSEQUENT PET IMAGING CT ATTENUATION SKULL BASE MID-THIGH Nina Grigsby MD [address] [place] [address] [place] [address] Molecular & Functional Imaging [address] [place] [address] Referral ID Status Reason Start Date Expiration Date Visits Requested Visits Authorized [id number] Authorized Auto-Generat ed Referral 09/23/2022 10/23/2023 1 1 [facility] for referral (narrative)* Diagnostic Procedure Only (Urgent) - Closed Specialty Diagnoses / Procedures Referred By Contac t Referred To Contact MOLECULAR & FUNCTIONAL IMAGING Diagnoses Malignant neoplasm of unspecified part of unspecified bronchus or lung (HCC) Procedures NM PET/CT WHOLE BODY INITIAL TUMOR IMAG PET W/CONCURNT CT-WHOLE BODY Marianne Fields MD [address] [facility] [address] [place] [address] Molecular & Functional Imaging [address] [place] [address] Referral ID Status Reason Start Date Expiration Date V isits Requested Visits Authorized [id number] Closed Clearance Not Met - Admin/Chairm an/Director Advise to Postpone/Res chedule or Not Proceed 05/14/2021 06/13/2021 2 2 [facility] for referral (narrative)* Diagnostic Procedure Only (Routine) - Authorized Specialty Diagnoses / Procedures [facility]erred To Contact MOLECULAR & FUNCTIONAL IMAGING Diagnoses 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) Procedures NM PET/CT SKULL-THIGH SUBSEQUENT PET IMAGING CT ATTENUATION SKULL BASE MID-THIGH Nina Grigsby MD [address] [place] [address] [place] [address] Molecular & Functional Imaging [address] [place] [address] Referral ID Status Reason Start Date Expiration Date Visits Requested Visits Authorized [id number] Authorized Auto-Generat ed Referral 08/25/2023 09/23/2024 1 1 [facility] for referral (narrative)* Diagnostic Procedure Only (Routine) - Authorized Specialty Diagnoses / Procedures Referred By Contac t Referred To Contact MOLECULAR & FUNCTIONAL IMAGING Diagnoses 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) Procedures NM PET/CT SKULL-THIGH SUBSEQUENT PET IMAGING CT ATTENUATION SKULL BASE MID-THIGH Nina Grigsby MD [address] [place] [address] [place] [address] Molecular & Functional Imaging [address] [place] [address] Referral ID Status Reason Start Date Expiration Date Visits Requested Visits Authorized [id number] Authorized Auto-Generat ed Referral 11/04/2023 12/03/2024 1 1 [facility] for referral (narrative)* Diagnostic Procedure Only (Routine) - Authorized Specialty Diagnoses / Procedures Referred By Contac t Referred To Contact MOLECULAR & FUNCTIONAL IMAGING Diagnoses 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 Swelling of arm Cancer associated pain Procedures NM PET/CT SKULL-THIGH SUBSEQUENT PET IMAGING CT ATTENUATION SKULL BASE MID-THIGH Yusef Pandya PA-C [address] [place] [address] [place] [address] Molecular & Functional Imaging [address] [place] [address] Referral ID Status Reason Start Date Expiration Date Visits Requested Visits Authorized [id number] Authorized Auto-Generat ed Referral 02/03/2024 03/04/2025 1 1 * Diagnostic Procedure Only (Urgent) - New Request Specialty Diagnoses / Procedures Referred By Contac t Referred To Contact US IMAGING Diagnoses 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) Swelling of arm Procedures US DVT UPPER LEFT DUP-SCAN XTR VEINS UNILATERAL/LIMITED STUDY Yusef Pandya PA-C [address] [place] [address] [place] [address] [place] [address] Referral ID Status Reason Start Date Expiration Date Visits Requested Visits Authorized [id number] New Request Auto-Generat ed Referral 02/03/2024 03/04/2025 1 1 [facility] for referral (narrative)* Outpatient Procedure (Routine) - Authorized Specialty Diagnoses / Procedures Referred By Contac t Referred To [facility] Diagnoses Centrilobular emphysema (HCC) Dyspnea on exertion Procedures LUNG DIFFUSION CAPACITY (DLCO) DIFFUSING CAPAC[place]ary Lucas [place] [id number] [place] [address] [address] Referral ID Status Reason Start Date Expiration Date Visits Requested Visits Authorized [id number] Authorized Auto-Generat ed Referral 03/15/2024 04/14/2025 1 1 * Outpatient Procedure (Routine) - Authorized Specialty Diagnoses / Procedures Referred By Contac t Referred To Contact [facility] [place] Diagnoses Centrilobular emphysema (HCC) Dyspnea on exertion Procedures SPIROMETRY WITH DILATOR IF OBSTRUCTED BRNCDILAT RSPSE SPMTRY PRE&[place] [address] [place] [address] [address] Referral ID Status Reason Start Date Expiration Date Visits Requested Visits Authorized [id number] Authorized Auto-Generat ed Referral 03/15/2024 04/14/2025 1 1 T [facility] for referral (narrative)* Diagnostic Procedure Only (Routine) - Closed Specialty Diagnoses / Procedures Referred By Contac t Referred To Contact MOLECULAR & FUNCTIONAL IMAGING Diagnoses 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 Swelling of arm Cancer associated pain Procedures NM PET/CT SKULL-THIGH SUBSEQUENT PET IMAGING CT ATTENUATION SKULL BASE MID-THIGH Yusef Pandya PA-C [address] [place] [address] [place] [address] Molecular & Functional Imaging [address] [place] [address] Referral ID Status Reason Start Date Expiration Date V isits Requested Visits Authorized [id number] Closed Auto-Generate d Referral 02/03/2024 03/04/2025 1 1 T [facility] for referral (narrative)* Diagnostic Procedure Only (Routine) - Closed Specialty Diagnoses / Procedures Referred By Contac t Referred To Contact MOLECULAR & FUNCTIONAL IMAGING Diagnoses 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) Procedures NM PET/CT SKULL-THIGH SUBSEQUENT PET IMAGING CT ATTENUATION SKULL BASE MID-THIGH Nina Grigsby MD [address] [place] [address] [place] [address] Molecular & Functional Imaging [address] [place] [address] Referral ID Status Reason Start Date Expiration Date V isits Requested Visits Authorized [id number] Closed Auto-Generate d Referral 11/04/2023 12/03/2024 1 1 [facility] for referral (narrative)* Diagnostic Procedure Only (Routine) - Closed Specialty Diagnoses / Procedures Referred By Contac t Referred To Contact MOLECULAR & FUNCTIONAL IMAGING Diagnoses 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) Procedures NM PET/CT SKULL-THIGH SUBSEQUENT PET IMAGING CT ATTENUATION SKULL BASE MID-THIGH Nina Grigsby MD [address] [place] [place] [address] Molecular & Functional Imaging [address] [place] [address] Referral ID Status Reason Start Date Expiration Date V isits Requested Visits Authorized [id number] Closed Auto-Generate d Referral 08/25/2023 09/23/2024 1 1 [facility] for referral (narrative)* Diagnostic Procedure Only (Routine) - Closed Specialty Diagnoses / Procedures Referred By Contac t Referred To Contact MOLECULAR & FUNCTIONAL IMAGING Diagnoses 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) Procedures NM PET/CT SKULL-THIGH SUBSEQUENT PET IMAGING CT ATTENUATION SKULL BASE MID-THIGH Nina Grigsby MD [address] [place] [address] [place] [address] Molecular & Functional Imaging [address] [place] [address] Referral ID Status Reason Start Date Expiration Date V isits Requested Visits Authorized [id number] Closed Auto-Generate d Referral 04/22/2023 05/21/2024 1 1 [facility] for referral (narrative)* Diagnostic Procedure Only (Routine) - Closed Specialty Diagnoses / Procedures Referred By Contac t Referred To Contact MOLECULAR & FUNCTIONAL IMAGING Diagnoses Malignant neoplasm of unspecified part of unspecified bronchus or lung (HCC) Procedures NM PET/CT SKULL-THIGH SUBSEQUENT PET IMAGING CT ATTENUATION SKULL BASE MID-THIGH Patricia Miller, CONCERT MANAGER.TYPEWRITER TESTER [address] [place] [address] Molecular & Functional Imaging [address] [place] [address] Referral ID Status Reason Start Date Expiration Date V isits Requested Visits Authorized [id number] Closed Auto-Generate d Referral 01/07/2023 02/06/2024 1 1 [facility] for referral (narrative)* Diagnostic Procedure Only (Routine) - Closed Specialty Diagnoses / Procedures Referred By Contac t Referred To Contact MOLECULAR & FUNCTIONAL IMAGING Diagnoses Lung nodules Procedures NM PET/CT SKULL-THIGH SUBSEQUENT PET IMAGING CT ATTENUATION SKULL BASE MID-THIGH Nina Grigsby MD [address] [place] [address] [place] [address] Molecular & Functional Imaging [address] [place] [address] Referral ID Status Reason Start Date Expiration Date V isits Requested Visits Authorized [id number] Closed Auto-Generate d Referral 09/23/2022 10/23/2023 1 1 [facility] for visit Narrative* Diagnostic Procedure Only (Urgent) - Closed Specialty Diagnoses / Procedures Referred By Contac t Referred To Contact MOLECULAR & FUNCTIONAL IMAGING Diagnoses Malignant neoplasm of unspecified part of unspecified bronchus or lung (HCC) Procedures NM PET/CT WHOLE BODY INITIAL TUMOR IMAG PET W/CONCURNT CT-WHOLE BODY Marianne Fields MD [address] [facility] [address] [place] [address] Molecular & Functional Imaging [address] [place] [address] Referral ID Status Reason Start Date Expiration Date V isits Requested Visits Authorized [id number] Closed Clearance Not Met - Admin/Chairm an/Director Advise to Postpone/Res chedule or Not Proceed 05/14/2021 06/13/2021 2 2 [facility] Summary Purpose Family History Relationship Condition Age at Onset Recorded Date/T jackeline father Heart problem Unknown Malignant neoplasm of lung Unknown Advance Directives Documents on File Type Date Recorded 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 Advance Directive(s) 09/03/2021 12:55 PM Advance Directive(s) 07/10/2021 11:36 AM Documents on File Type Date Recorded 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 Advance Directive(s) 09/03/2021 12:55 PM Advance Directive(s) 07/10/2021 11:36 AM Advance Directive Response Recorded Date/ Time Advance Directives No May 11:17am Reason for Referral Specialty Diagnoses / Procedures Referred By Contac t Referred To Contact Oncology Diagnoses Malignant neoplasm of upper lobe of left lung (HCC) Procedures CONSULT TO ONCOLOGY OFFICE/OUTPATIENT [facility] 60-74 MINUTES Aracelis Carrillo, CONCERT MANAGER.TYPEWRITER TESTER [address] [place], [place] [id number] Referral ID Status Reason Start Date Expiration Date Visits Requested Visits Authorized [id number] Authorized PCP Requested Referral 10/11/2021 10/11/2022 1 1 Specialty Diagnoses / Procedures Referred By Contac t Referred To Contact Oncology Diagnoses Malignant neoplasm of upper lobe of left lung (HCC) Procedures CONSULT TO ONCOLOGY OFFICE/OUTPATIENT [facility] 60-74 MINUTES Renetta Ponce MD [address] [place] [address] Referral ID Status Reason Start Date Expiration Date V isits Requested Visits Authorized [id number] Closed PCP Requested Referral 10/26/2021 10/19/2022 1 1 Specialty Diagnoses / Procedures Referred By Contac t Referred To Contact MR IMAGING Diagnoses Malignant neoplasm of upper lobe of left lung (HCC) Procedures MRI BRAIN WO/W IVCON MRI BRAIN BRAIN STEM W/O W/CONTRAST MATERIAL Renetta Ponce MD [address] [place] [address] Mr Imaging Referral ID Status Reason Start Date Expiration Date Visits Requested Visits Authorized [id number] Authorized Auto-Generat ed Referral 10/26/2021 11/18/2021 1 1 Specialty Diagnoses / Procedures Referred By Contac t Referred To Contact Dermatology Diagnoses Skin rash Procedures CONSULT TO DERMATOLOGY OFFICE/OUTPATIENT [facility] 60-74 MINUTES Patricia Miller, CONCERT MANAGER.TYPEWRITER TESTER [address] [place] [address] [place] [address] Referral ID Status Reason Start Date Expiration Date Visits Requested Visits Authorized [id number] Authorized PCP Requested Referral 02/26/2022 02/26/2023 1 1 Specialty Diagnoses / Procedures Referred By Contac t Referred To Contact CT IMAGING Diagnoses Malignant neoplasm of unspecified part of unspecified bronchus or lung (HCC) Procedures CT CHEST W IVCON DIAGNOSTIC COMPUTED TOMOGRAPHY THORAX W/CONTRAST Hector Limon MD [address] [place] [address] [place] [address] Ct Imaging Referral ID Status Reason Start Date Expiration Date V isits Requested Visits Authorized [id number] Closed Auto-Generate d Referral 06/11/2022 07/11/2023 1 1 Specialty Diagnoses / Procedures Referred By Contac t Referred To Contact CT IMAGING Diagnoses Malignant neoplasm of unspecified part of unspecified bronchus or lung (HCC) Procedures CT CHEST W IVCON DIAGNOSTIC COMPUTED TOMOGRAPHY THORAX W/CONTRAST Nina Grigsby MD [address] [place] [address] [place] [address] Ct Imaging Referral ID Status Reason Start Date Expiration Date Visits Requested Visits Authorized [id number] Pending Review Auto-Generat ed Referral 08/20/2022 09/19/2023 1 1 Specialty Diagnoses / Procedures Referred By Contac t Referred To Contact CT IMAGING Diagnoses Malignant neoplasm of upper lobe of left lung (HCC) Procedures CT ABD/PEL W IVCON CT ABD & PELVIS W/CONTRAST Nina Grigsby MD [address] [place] [address] [place] [address] Ct Imaging Referral ID Status Reason Start Date Expiration Date Visits Requested Visits Authorized [id number] Pending Review Auto-Generat ed Referral 08/20/2022 09/19/2023 1 1 Specialty Diagnoses / Procedures Referred By Contac t Referred To Contact Diagnoses Malignant neoplasm of unspecified part of unspecified bronchus or lung (HCC) Procedures CT SIM PLANNING RADIATION ONCOLOGY THER RAD SIMULAJ-AIDED FIELD SETTING COMPLEX Hector Limon MD [address] [place] [address] [place] [address] Referral ID Status Reason Start Date Expiration Date Visits Requested Visits Authorized [id number] Pending Review PCP Requested Referral 10/21/2022 01/19/2023 1 1 Specialty Diagnoses / Procedures Referred By Contac t Referred To Contact Diagnoses 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) Cancer related pain Procedures CONSULT TO PALLIATIVE CARE OFFICE/OUTPATIENT [facility] 60-74 MINUTES Patricia Miller, CONCERT MANAGER.TYPEWRITER TESTER [address] [place] [address] Referral ID Status Reason Start Date Expiration Date Visits Requested Visits Authorized [id number] Authorized PCP Requested Referral 3 05/14/2024 1 1 Specialty Diagnoses / Procedures Referred By Contac t Referred To Contact MR IMAGING Diagnoses Malignant neoplasm of upper lobe of left lung (HCC) Procedures MRI BRAIN WO/W IVCON MRI BRAIN BRAIN STEM W/O W/CONTRAST MATERIAL Renetta Ponce MD [address] [place] [address] Mr Imaging [facility] Referral ID Status Reason Start Date Expiration Date V isits Requested Visits Authorized [id number] Closed Auto-Generate d Referral 10/26/2021 11/18/2021 1 1 Specialty Diagnoses / Procedures Referred By Contac t Referred To Contact Diagnoses Oropharnyx cancer (HCC) Procedures CT SIM PLANNING RADIATION ONCOLOGY THER RAD SIMULAJ-AIDED FIELD SETTING COMPLEX Hector Limon MD [address] [facility] [facility] [place] [address] Referral ID Status Reason Start Date Expiration Date Visits Requested Visits Authorized [id number] Pending Review PCP Requested Referral 3 09/08/2023 1 1 Specialty Diagnoses / Procedures Referred By Contac t Referred To Contact CT IMAGING Diagnoses 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) Procedures CT CHEST W IVCON DIAGNOSTIC COMPUTED TOMOGRAPHY THORAX W/CONTRAST Nina Grigsby MD [address] [facility] [place] [address] Ct Imaging [facility] Referral ID Status Reason Start Date Expiration Date V isits Requested Visits Authorized [id number] Closed Auto-Generate d Referral 10/20/2023 11/18/2024 1 1 Specialty Diagnoses / Procedures Referred By Contac t Referred To Contact [facility] Diagnoses Chronic left shoulder pain Procedures CONSULT TO PHYSICAL THERAPY PHYSICAL THERAPY EVALUATION [facility] 45 MINS Estella Fish, CONCERT MANAGER.TYPEWRITER TESTER [address] [place] [address] [facility] [address] [place] [address] Referral ID Status Reason Start Date Expiration Date Visits Requested Visits Authorized [id number] Pending Review Auto-Generat ed Referral 11/21/2023 11/20/2024 [...] plus sim IMRT Hector Limon MD [address] [place] [place] [address] Paul Mendez [address] [place] [place] [address] Referral ID Status Reason Start Date Expiration Date Visits Requested Visits Authorized [id number] Authorized PCP Requested Referral 12/03/2023 06/03/2024 16 16 Specialty Diagnoses / Procedures Referred By Contac t Referred To Contact Vascular Surgery Diagnoses Left arm swelling Cyanosis of tip of finger Procedures CONSULT TO VASCULAR SURGERY OFFICE/OUTPATIENT [facility] 60 MINUTES Yusef Pandya PA-C [address] [place] [address] Referral ID Status Reason Start Date Expiration Date Visits Requested Visits Authorized [id number] Authorized PCP Requested Referral 02/04/2024 02/03/2025 1 1 Specialty Diagnoses / Procedures Referred By Contac t Referred To Contact Ent - Otolaryngology Diagnoses Abnormal CT scan, neck Sore throat Procedures CONSULT TO ENT OFFICE/OUTPATIENT [facility] 60 MINUTES Yusef Pandya PA-C [address] [facility] [place] [address] Referral ID Status Reason Start Date Expiration Date Visits Requested Visits Authorized [id number] Authorized PCP Requested Referral 02/24/2024 02/23/2025 1 1 Specialty Diagnoses / Procedures Referred By Contac t Referred To Contact MR IMAGING Diagnoses 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) Procedures MRI BRAIN WO/W IVCON MRI BRAIN BRAIN STEM W/O W/CONTRAST MATERIAL Nina Grigsby MD [address] [place] [address] [address] [place], [facility] [place] [address] Referral ID Status Reason Start Date Expiration Date Visits Requested Visits Authorized [id number] New Request Auto-Generat ed Referral 03/23/2024 04/22/2025 1 1 Specialty Diagnoses / Procedures Referred By Contac t Referred To Contact CT IMAGING Diagnoses Malignant neoplasm of unspecified part of unspecified bronchus or lung (HCC) Procedures CT CHEST W IVCON DIAGNOSTIC COMPUTED TOMOGRAPHY THORAX W/CONTRAST Nina Grigsby MD [address] [place] [address] [address] [place], [facility] Ct Imaging [facility] Referral ID Status Reason Start Date Expiration Date V isits Requested Visits Authorized [id number] Closed Auto-Generate d Referral 08/20/2022 09/19/2023 1 1 Specialty Diagnoses / Procedures Referred By Contac t Referred To Contact CT IMAGING Diagnoses Malignant neoplasm of upper lobe of left lung (HCC) Procedures CT ABD/PEL W IVCON CT ABD & PELVIS W/CONTRAST Nina Grigsby MD [address] [place] [address] [address] [place], [facility] Ct Imaging [facility] Referral ID Status Reason Start Date Expiration Date V isits Requested Visits Authorized [id number] Closed Auto-Generate d Referral 08/20/2022 09/19/2023 1 1 Specialty Diagnoses / Procedures Referred By Contac t Referred To Contact CT IMAGING Diagnoses Malignant neoplasm of unspecified part of unspecified bronchus or lung (HCC) Procedures CT CHEST W IVCON DIAGNOSTIC COMPUTED TOMOGRAPHY THORAX W/CONTRAST Hector Limon MD [address] [place] [address] [place] [address] Ct Imaging [facility] Medications Administered Section Inactive Administered Medications - [...] Chemotherapy Drug: Use appropriate PPE. New Bag/Syringe/Tiana mallika 12/24/2021 11:35 AM EDT 845 mg Inactive [...] 1330, Approx Total Volume: 66 mL. EXP: 0 04/02/23 Administer with 0.2 micron filter. New [...] and content) DATE CREATED AUTHOR 02/22/2020 [facility] DATE CREATED AUTHOR AUTHOR'S ORGANIZ ATION 10/14/2022 [facility] DATE CREATED AUTHOR AUTHOR'S ORGANIZ ATION 10/25/2022 [facility] DATE CREATED AUTHOR AUTHOR'S ORGANIZ ATION 01/18/2023 [facility] DATE CREATED AUTHOR AUTHOR'S ORGANIZ ATION 04/07/2024 [facility] DATE CREATED AUTHOR AUTHOR'S ORGANIZ ATION 04/09/2024 [facility] DATE CREATED AUTHOR AUTHOR'S ORGANIZ ATION 04/20/2024 [facility] Source Comments (unrecognize d section and content) In the event this informatio n is protected by the Federal Confidentiality of Alcohol and Drug Abuse Patient Records regulations: The Federal rules restrict any use of the information to criminally investigate or prosecute any alcohol or drug abuse patient.[facility] the event this information is protected by the Federal Confidentiality of Alcohol and Drug Abuse Patient Records regulations: The Federal rules restrict any use of the information to criminally investigate or prosecute any alcohol or drug abuse patient.[facility] the event this information is protected by the Federal Confidentiality of Alcohol and Drug Abuse Patient Records regulations: The Federal rules restrict any use of the information to criminally investigate or prosecute any alcohol or drug abuse patient.[facility] the event this information is protected by the Federal Confidentiality of Alcohol and Drug Abuse Patient Records regulations: The Federal rules restrict any use of the information to criminally investigate or prosecute any alcohol or drug abuse patient.[facility] the event this information is protected by the Federal Confidentiality of Alcohol and Drug Abuse Patient Records regulations: The Federal rules restrict any use of the information to criminally investigate or prosecute any alcohol or drug abuse patient.[facility] the event this information is protected by the Federal Confidentiality of Alcohol and Drug Abuse Patient Records regulations: The Federal rules restrict any use of the information to criminally investigate or prosecute any alcohol or drug abuse patient.[facility] the event this information is protected by the Federal Confidentiality of Alcohol and Drug Abuse Patient Records regulations: The Federal rules restrict any use of the information to criminally investigate or prosecute any alcohol or drug abuse patient.[facility] Center[facility] the event this information is protected by the Federal Confidentiality of Alcohol and Drug Abuse Patient Records regulations: The Federal rules restrict any use of the information to criminally investigate or prosecute any alcohol or drug abuse patient.[facility] the event this information is protected by the Federal Confidentiality of Alcohol and Drug Abuse Patient Records regulations: The Federal rules restrict any use of the information to criminally investigate or prosecute any alcohol or drug abuse patient.[facility] the event this information is protected by the Federal Confidentiality of Alcohol and Drug Abuse Patient Records regulations: The Federal rules restrict any use of the information to criminally investigate or prosecute any alcohol or drug abuse patient.[facility] the event this information is protected by the Federal Confidentiality of Alcohol and Drug Abuse Patient Records regulations: The Federal rules restrict any use of the information to criminally investigate or prosecute any alcohol or drug abuse patient.[facility] CenterIn the event this information is protected by the Federal Confidentiality of Alcohol and Drug Abuse Patient Records regulations: The Federal rules restrict any use of the information to criminally investigate or prosecute any alcohol or drug abuse patient.[facility] CenterIn the event this information is protected by the Federal Confidentiality of Alcohol and Drug Abuse Patient Records regulations: The Federal rules restrict any use of the information to criminally investigate or prosecute any alcohol or drug abuse patient.[facility] CenterIn the event this information is protected by the Federal Confidentiality of Alcohol and Drug Abuse Patient Records regulations: The Federal rules restrict any use of the information to criminally investigate or prosecute any alcohol or drug abuse patient.[facility] CenterIn the event this information is protected by the Federal Confidentiality of Alcohol and Drug Abuse Patient Records regulations: The Federal rules restrict any use of the information to criminally investigate or prosecute any alcohol or drug abuse patient.[facility] CenterIn the event this information is protected by the Federal Confidentiality of Alcohol and Drug Abuse Patient Records regulations: The Federal rules restrict any use of the information to criminally investigate or prosecute any alcohol or drug abuse patient.[facility] CenterIn the event this information is protected by the Federal Confidentiality of Alcohol and Drug Abuse Patient Records regulations: The Federal rules restrict any use of the information to criminally investigate or prosecute any alcohol or drug abuse patient.[facility] CenterIn the event this information is protected by the Federal Confidentiality of Alcohol and Drug Abuse Patient Records regulations: The Federal rules restrict any use of the information to criminally investigate or prosecute any alcohol or drug abuse patient.[facility] CenterIn the event this information is protected by the Federal Confidentiality of Alcohol and Drug Abuse Patient Records regulations: The Federal rules restrict any use of the information to criminally investigate or prosecute any alcohol or drug abuse patient.[facility] CenterIn the event this information is protected by the Federal Confidentiality of Alcohol and Drug Abuse Patient Records regulations: The Federal rules restrict any use of the information to criminally investigate or prosecute any alcohol or drug abuse patient.[facility] CenterIn the event this information is protected by the Federal Confidentiality of Alcohol and Drug Abuse Patient Records regulations: The Federal rules restrict any use of the information to criminally investigate or prosecute any alcohol or drug abuse patient.[facility] CenterIn the event this information is protected by the Federal Confidentiality of Alcohol and Drug Abuse Patient Records regulations: The Federal rules restrict any use of the information to criminally investigate or prosecute any alcohol or drug abuse patient.[facility] CenterIn the event this information is protected by the Federal Confidentiality of Alcohol and Drug Abuse Patient Records regulations: The Federal rules restrict any use of the information to criminally investigate or prosecute any alcohol or drug abuse patient.[facility] CenterIn the event this information is protected by the Federal Confidentiality of Alcohol and Drug Abuse Patient Records regulations: The Federal rules restrict any use of the information to criminally investigate or prosecute any alcohol or drug abuse patient.[facility] CenterIn the event this information is protected by the Federal Confidentiality of Alcohol and Drug Abuse Patient Records regulations: The Federal rules restrict any use of the information to criminally investigate or prosecute any alcohol or drug abuse patient.[facility] CenterIn the event this information is protected by the Federal Confidentiality of Alcohol and Drug Abuse Patient Records regulations: The Federal rules restrict any use of the information to criminally investigate or prosecute any alcohol or drug abuse patient.[facility] CenterIn the event this information is protected by the Federal Confidentiality of Alcohol and Drug Abuse Patient Records regulations: The Federal rules restrict any use of the information to criminally investigate or prosecute any alcohol or drug abuse patient.[facility] CenterIn the event this information is protected by the Federal Confidentiality of Alcohol and Drug Abuse Patient Records regulations: The Federal rules restrict any use of the information to criminally investigate or prosecute any alcohol or drug abuse patient.[facility] CenterIn the event this information is protected by the Federal Confidentiality of Alcohol and Drug Abuse Patient Records regulations: The Federal rules restrict any use of the information to criminally investigate or prosecute any alcohol or drug abuse patient.[facility] CenterIn the event this information is protected by the Federal Confidentiality of Alcohol and Drug Abuse Patient Records regulations: The Federal rules restrict any use of the information to criminally investigate or prosecute any alcohol or drug abuse patient.[facility] CenterIn the event this information is protected by the Federal Confidentiality of Alcohol and Drug Abuse Patient Records regulations: The Federal rules restrict any use of the information to criminally investigate or prosecute any alcohol or drug abuse patient.[facility] CenterIn the event this information is protected by the Federal Confidentiality of Alcohol and Drug Abuse Patient Records regulations: The Federal rules restrict any use of the information to criminally investigate or prosecute any alcohol or drug abuse patient.[facility] CenterIn the event this information is protected by the Federal Confidentiality of Alcohol and Drug Abuse Patient Records regulations: The Federal rules restrict any use of the information to criminally investigate or prosecute any alcohol or drug abuse patient.[facility] CenterIn the event this information is protected by the Federal Confidentiality of Alcohol and Drug Abuse Patient Records regulations: The Federal rules restrict any use of the information to criminally investigate or prosecute any alcohol or drug abuse patient.[facility] CenterIn the event this information is protected by the Federal Confidentiality of Alcohol and Drug Abuse Patient Records regulations: The Federal rules restrict any use of the information to criminally investigate or prosecute any alcohol or drug abuse patient.[facility] CenterIn the event this information is protected by the Federal Confidentiality of Alcohol and Drug Abuse Patient Records regulations: The Federal rules restrict any use of the information to criminally investigate or prosecute any alcohol or drug abuse patient.[facility] CenterIn the event this information is protected by the Federal Confidentiality of Alcohol and Drug Abuse Patient Records regulations: The Federal rules restrict any use of the information to criminally investigate or prosecute any alcohol or drug abuse patient.[facility] CenterIn the event this information is protected by the Federal Confidentiality of Alcohol and Drug Abuse Patient Records regulations: The Federal rules restrict any use of the information to criminally investigate or prosecute any alcohol or drug abuse patient.[facility] CenterIn the event this information is protected by the Federal Confidentiality of Alcohol and Drug Abuse Patient Records regulations: The Federal rules restrict any use of the information to criminally investigate or prosecute any alcohol or drug abuse patient.[facility] CenterIn the event this information is protected by the Federal Confidentiality of Alcohol and Drug Abuse Patient Records regulations: The Federal rules restrict any use of the information to criminally investigate or prosecute any alcohol or drug abuse patient.[facility] CenterIn the event this information is protected by the Federal Confidentiality of Alcohol and Drug Abuse Patient Records regulations: The Federal rules restrict any use of the information to criminally investigate or prosecute any alcohol or drug abuse patient.[facility] CenterIn the event this information is protected by the Federal Confidentiality of Alcohol and Drug Abuse Patient Records regulations: The Federal rules restrict any use of the information to criminally investigate or prosecute any alcohol or drug abuse patient.[facility] CenterIn the event this information is protected by the Federal Confidentiality of Alcohol and Drug Abuse Patient Records regulations: The Federal rules restrict any use of the information to criminally investigate or prosecute any alcohol or drug abuse patient.[facility] CenterIn the event this information is protected by the Federal Confidentiality of Alcohol and Drug Abuse Patient Records regulations: The Federal rules restrict any use of the information to criminally investigate or prosecute any alcohol or drug abuse patient.[facility] CenterIn the event this information is protected by the Federal Confidentiality of Alcohol and Drug Abuse Patient Records regulations: The Federal rules restrict any use of the information to criminally investigate or prosecute any alcohol or drug abuse patient.[facility] CenterIn the event this information is protected by the Federal Confidentiality of Alcohol and Drug Abuse Patient Records regulations: The Federal rules restrict any use of the information to criminally investigate or prosecute any alcohol or drug abuse patient.[facility] CenterIn the event this information is protected by the Federal Confidentiality of Alcohol and Drug Abuse Patient Records regulations: The Federal rules restrict any use of the information to criminally investigate or prosecute any alcohol or drug abuse patient.[facility] CenterIn the event this information is protected by the Federal Confidentiality of Alcohol and Drug Abuse Patient Records regulations: The Federal rules restrict any use of the information to criminally investigate or prosecute any alcohol or drug abuse patient.[facility] CenterIn the event this information is protected by the Federal Confidentiality of Alcohol and Drug Abuse Patient Records regulations: The Federal rules restrict any use of the information to criminally investigate or prosecute any alcohol or drug abuse patient.[facility] CenterIn the event this information is protected by the Federal Confidentiality of Alcohol and Drug Abuse Patient Records regulations: The Federal rules restrict any use of the information to criminally investigate or prosecute any alcohol or drug abuse patient.[facility] CenterIn the event this information is protected by the Federal Confidentiality of Alcohol and Drug Abuse Patient Records regulations: The Federal rules restrict any use of the information to criminally investigate or prosecute any alcohol or drug abuse patient.[facility] CenterIn the event this information is protected by the Federal Confidentiality of Alcohol and Drug Abuse Patient Records regulations: The Federal rules restrict any use of the information to criminally investigate or prosecute any alcohol or drug abuse patient.[facility] CenterIn the event this information is protected by the Federal Confidentiality of Alcohol and Drug Abuse Patient Records regulations: The Federal rules restrict any use of the information to criminally investigate or prosecute any alcohol or drug abuse patient.[facility] CenterIn the event this information is protected by the Federal Confidentiality of Alcohol and Drug Abuse Patient Records regulations: The Federal rules restrict any use of the information to criminally investigate or prosecute any alcohol or drug abuse patient.[facility] CenterIn the event this information is protected by the Federal Confidentiality of Alcohol and Drug Abuse Patient Records regulations: The Federal rules restrict any use of the information to criminally investigate or prosecute any alcohol or drug abuse patient.[facility] CenterIn the event this information is protected by the Federal Confidentiality of Alcohol and Drug Abuse Patient Records regulations: The Federal rules restrict any use of the information to criminally investigate or prosecute any alcohol or drug abuse patient.[facility] CenterIn the event this information is protected by the Federal Confidentiality of Alcohol and Drug Abuse Patient Records regulations: The Federal rules restrict any use of the information to criminally investigate or prosecute any alcohol or drug abuse patient.[facility] CenterIn the event this information is protected by the Federal Confidentiality of Alcohol and Drug Abuse Patient Records regulations: The Federal rules restrict any use of the information to criminally investigate or prosecute any alcohol or drug abuse patient.[facility] CenterIn the event this information is protected by the Federal Confidentiality of Alcohol and Drug Abuse Patient Records regulations: The Federal rules restrict any use of the information to criminally investigate or prosecute any alcohol or drug abuse patient.[facility] CenterIn the event this information is protected by the Federal Confidentiality of Alcohol and Drug Abuse Patient Records regulations: The Federal rules restrict any use of the information to criminally investigate or prosecute any alcohol or drug abuse patient.[facility] CenterIn the event this information is protected by the Federal Confidentiality of Alcohol and Drug Abuse Patient Records regulations: The Federal rules restrict any use of the information to criminally investigate or prosecute any alcohol or drug abuse patient.[facility] CenterIn the event this information is protected by the Federal Confidentiality of Alcohol and Drug Abuse Patient Records regulations: The Federal rules restrict any use of the information to criminally investigate or prosecute any alcohol or drug abuse patient.[facility] CenterIn the event this information is protected by the Federal Confidentiality of Alcohol and Drug Abuse Patient Records regulations: The Federal rules restrict any use of the information to criminally investigate or prosecute any alcohol or drug abuse patient.[facility] CenterIn the event this information is protected by the Federal Confidentiality of Alcohol and Drug Abuse Patient Records regulations: The Federal rules restrict any use of the information to criminally investigate or prosecute any alcohol or drug abuse patient.[facility] CenterIn the event this information is protected by the Federal Confidentiality of Alcohol and Drug Abuse Patient Records regulations: The Federal rules restrict any use of the information to criminally investigate or prosecute any alcohol or drug abuse patient.[facility] CenterIn the event this information is protected by the Federal Confidentiality of Alcohol and Drug Abuse Patient Records regulations: The Federal rules restrict any use of the information to criminally investigate or prosecute any alcohol or drug abuse patient.[facility] CenterIn the event this information is protected by the Federal Confidentiality of Alcohol and Drug Abuse Patient Records regulations: The Federal rules restrict any use of the information to criminally investigate or prosecute any alcohol or drug abuse patient.[facility] CenterIn the event this information is protected by the Federal Confidentiality of Alcohol and Drug Abuse Patient Records regulations: The Federal rules restrict any use of the information to criminally investigate or prosecute any alcohol or drug abuse patient.[facility] CenterIn the event this information is protected by the Federal Confidentiality of Alcohol and Drug Abuse Patient Records regulations: The Federal rules restrict any use of the information to criminally investigate or prosecute any alcohol or drug abuse patient.[facility] CenterIn the event this information is protected by the Federal Confidentiality of Alcohol and Drug Abuse Patient Records regulations: The Federal rules restrict any use of the information to criminally investigate or prosecute any alcohol or drug abuse patient.[facility] CenterIn the event this information is protected by the Federal Confidentiality of Alcohol and Drug Abuse Patient Records regulations: The Federal rules restrict any use of the information to criminally investigate or prosecute any alcohol or drug abuse patient.[facility] CenterIn the event this information is protected by the Federal Confidentiality of Alcohol and Drug Abuse Patient Records regulations: The Federal rules restrict any use of the information to criminally investigate or prosecute any alcohol or drug abuse patient.[facility] CenterIn the event this information is protected by the Federal Confidentiality of Alcohol and Drug Abuse Patient Records regulations: The Federal rules restrict any use of the information to criminally investigate or prosecute any alcohol or drug abuse patient.[facility] CenterIn the event this information is protected by the Federal Confidentiality of Alcohol and Drug Abuse Patient Records regulations: The Federal rules restrict any use of the information to criminally investigate or prosecute any alcohol or drug abuse patient.[facility] CenterIn the event this information is protected by the Federal Confidentiality of Alcohol and Drug Abuse Patient Records regulations: The Federal rules restrict any use of the information to criminally investigate or prosecute any alcohol or drug abuse patient.[facility] CenterIn the event this information is protected by the Federal Confidentiality of Alcohol and Drug Abuse Patient Records regulations: The Federal rules restrict any use of the information to criminally investigate or prosecute any alcohol or drug abuse patient.[facility] CenterIn the event this information is protected by the Federal Confidentiality of Alcohol and Drug Abuse Patient Records regulations: The Federal rules restrict any use of the information to criminally investigate or prosecute any alcohol or drug abuse patient.[facility] CenterIn the event this information is protected by the Federal Confidentiality of Alcohol and Drug Abuse Patient Records regulations: The Federal rules restrict any use of the information to criminally investigate or prosecute any alcohol or drug abuse patient.[facility] CenterIn the event this information is protected by the Federal Confidentiality of Alcohol and Drug Abuse Patient Records regulations: The Federal rules restrict any use of the information to criminally investigate or prosecute any alcohol or drug abuse patient.[facility] CenterIn the event this information is protected by the Federal Confidentiality of Alcohol and Drug Abuse Patient Records regulations: The Federal rules restrict any use of the information to criminally investigate or prosecute any alcohol or drug abuse patient.[facility] CenterIn the event this information is protected by the Federal Confidentiality of Alcohol and Drug Abuse Patient Records regulations: The Federal rules restrict any use of the information to criminally investigate or prosecute any alcohol or drug abuse patient.[facility] CenterIn the event this information is protected by the Federal Confidentiality of Alcohol and Drug Abuse Patient Records regulations: The Federal rules restrict any use of the information to criminally investigate or prosecute any alcohol or drug abuse patient.[facility] CenterIn the event this information is protected by the Federal Confidentiality of Alcohol and Drug Abuse Patient Records regulations: The Federal rules restrict any use of the information to criminally investigate or prosecute any alcohol or drug abuse patient.[facility] CenterIn the event this information is protected by the Federal Confidentiality of Alcohol and Drug Abuse Patient Records regulations: The Federal rules restrict any use of the information to criminally investigate or prosecute any alcohol or drug abuse patient.[facility] CenterIn the event this information is protected by the Federal Confidentiality of Alcohol and Drug Abuse Patient Records regulations: The Federal rules restrict any use of the information to criminally investigate or prosecute any alcohol or drug abuse patient.[facility] CenterIn the event this information is protected by the Federal Confidentiality of Alcohol and Drug Abuse Patient Records regulations: The Federal rules restrict any use of the information to criminally investigate or prosecute any alcohol or drug abuse patient.[facility] CenterIn the event this information is protected by the Federal Confidentiality of Alcohol and Drug Abuse Patient Records regulations: The Federal rules restrict any use of the information to criminally investigate or prosecute any alcohol or drug abuse patient.[facility] CenterIn the event this information is protected by the Federal Confidentiality of Alcohol and Drug Abuse Patient Records regulations: The Federal rules restrict any use of the information to criminally investigate or prosecute any alcohol or drug abuse patient.[facility] CenterIn the event this information is protected by the Federal Confidentiality of Alcohol and Drug Abuse Patient Records regulations: The Federal rules restrict any use of the information to criminally investigate or prosecute any alcohol or drug abuse patient.[facility] CenterIn the event this information is protected by the Federal Confidentiality of Alcohol and Drug Abuse Patient Records regulations: The Federal rules restrict any use of the information to criminally investigate or prosecute any alcohol or drug abuse patient.[facility] CenterIn the event this information is protected by the Federal Confidentiality of Alcohol and Drug Abuse Patient Records regulations: The Federal rules restrict any use of the information to criminally investigate or prosecute any alcohol or drug abuse patient.[facility] CenterIn the event this information is protected by the Federal Confidentiality of Alcohol and Drug Abuse Patient Records regulations: The Federal rules restrict any use of the information to criminally investigate or prosecute any alcohol or drug abuse patient.[facility] CenterIn the event this information is protected by the Federal Confidentiality of Alcohol and Drug Abuse Patient Records regulations: The Federal rules restrict any use of the information to criminally investigate or prosecute any alcohol or drug abuse patient.[facility] CenterIn the event this information is protected by the Federal Confidentiality of Alcohol and Drug Abuse Patient Records regulations: The Federal rules restrict any use of the information to criminally investigate or prosecute any alcohol or drug abuse patient.[facility] CenterIn the event this information is protected by the Federal Confidentiality of Alcohol and Drug Abuse Patient Records regulations: The Federal rules restrict any use of the information to criminally investigate or prosecute any alcohol or drug abuse patient.[facility] CenterIn the event this information is protected by the Federal Confidentiality of Alcohol and Drug Abuse Patient Records regulations: The Federal rules restrict any use of the information to criminally investigate or prosecute any alcohol or drug abuse patient.[facility] CenterIn the event this information is protected by the Federal Confidentiality of Alcohol and Drug Abuse Patient Records regulations: The Federal rules restrict any use of the information to criminally investigate or prosecute any alcohol or drug abuse patient.[facility] CenterIn the event this information is protected by the Federal Confidentiality of Alcohol and Drug Abuse Patient Records regulations: The Federal rules restrict any use of the information to criminally investigate or prosecute any alcohol or drug abuse patient.[facility] CenterIn the event this information is protected by the Federal Confidentiality of Alcohol and Drug Abuse Patient Records regulations: The Federal rules restrict any use of the information to criminally investigate or prosecute any alcohol or drug abuse patient.[facility] CenterIn the event this information is protected by the Federal Confidentiality of Alcohol and Drug Abuse Patient Records regulations: The Federal rules restrict any use of the information to criminally investigate or prosecute any alcohol or drug abuse patient.[facility] CenterIn the event this information is protected by the Federal Confidentiality of Alcohol and Drug Abuse Patient Records regulations: The Federal rules restrict any use of the information to criminally investigate or prosecute any alcohol or drug abuse patient.[facility] CenterIn the event this information is protected by the Federal Confidentiality of Alcohol and Drug Abuse Patient Records regulations: The Federal rules restrict any use of the information to criminally investigate or prosecute any alcohol or drug abuse patient.[facility] CenterIn the event this information is protected by the Federal Confidentiality of Alcohol and Drug Abuse Patient Records regulations: The Federal rules restrict any use of the information to criminally investigate or prosecute any alcohol or drug abuse patient.[facility] CenterIn the event this information is protected by the Federal Confidentiality of Alcohol and Drug Abuse Patient Records regulations: The Federal rules restrict any use of the information to criminally investigate or prosecute any alcohol or drug abuse patient.[facility] CenterIn the event this information is protected by the Federal Confidentiality of Alcohol and Drug Abuse Patient Records regulations: The Federal rules restrict any use of the information to criminally investigate or prosecute any alcohol or drug abuse patient.[facility] CenterIn the event this information is protected by the Federal Confidentiality of Alcohol and Drug Abuse Patient Records regulations: The Federal rules restrict any use of the information to criminally investigate or prosecute any alcohol or drug abuse patient.[facility] CenterIn the event this information is protected by the Federal Confidentiality of Alcohol and Drug Abuse Patient Records regulations: The Federal rules restrict any use of the information to criminally investigate or prosecute any alcohol or drug abuse patient.[facility] CenterIn the event this information is protected by the Federal Confidentiality of Alcohol and Drug Abuse Patient Records regulations: The Federal rules restrict any use of the information to criminally investigate or prosecute any alcohol or drug abuse patient.[facility] CenterIn the event this information is protected by the Federal Confidentiality of Alcohol and Drug Abuse Patient Records regulations: The Federal rules restrict any use of the information to criminally investigate or prosecute any alcohol or drug abuse patient.[facility] CenterIn the event this information is protected by the Federal Confidentiality of Alcohol and Drug Abuse Patient Records regulations: The Federal rules restrict any use of the information to criminally investigate or prosecute any alcohol or drug abuse patient.[facility] CenterIn the event this information is protected by the Federal Confidentiality of Alcohol and Drug Abuse Patient Records regulations: The Federal rules restrict any use of the information to criminally investigate or prosecute any alcohol or drug abuse patient.[facility] CenterIn the event this information is protected by the Federal Confidentiality of Alcohol and Drug Abuse Patient Records regulations: The Federal rules restrict any use of the information to criminally investigate or prosecute any alcohol or drug abuse patient.[facility] CenterIn the event this information is protected by the Federal Confidentiality of Alcohol and Drug Abuse Patient Records regulations: The Federal rules restrict any use of the information to criminally investigate or prosecute any alcohol or drug abuse patient.[facility] CenterIn the event this information is protected by the Federal Confidentiality of Alcohol and Drug Abuse Patient Records regulations: The Federal rules restrict any use of the information to criminally investigate or prosecute any alcohol or drug abuse patient.[facility] CenterIn the event this information is protected by the Federal Confidentiality of Alcohol and Drug Abuse Patient Records regulations: The Federal rules restrict any use of the information to criminally investigate or prosecute any alcohol or drug abuse patient.[facility] CenterIn the event this information is protected by the Federal Confidentiality of Alcohol and Drug Abuse Patient Records regulations: The Federal rules restrict any use of the information to criminally investigate or prosecute any alcohol or drug abuse patient.[facility] CenterIn the event this information is protected by the Federal Confidentiality of Alcohol and Drug Abuse Patient Records regulations: The Federal rules restrict any use of the information to criminally investigate or prosecute any alcohol or drug abuse patient.[facility] CenterIn the event this information is protected by the Federal Confidentiality of Alcohol and Drug Abuse Patient Records regulations: The Federal rules restrict any use of the information to criminally investigate or prosecute any alcohol or drug abuse patient.[facility] CenterIn the event this information is protected by the Federal Confidentiality of Alcohol and Drug Abuse Patient Records regulations: The Federal rules restrict any use of the information to criminally investigate or prosecute any alcohol or drug abuse patient.[facility] CenterIn the event this information is protected by the Federal Confidentiality of Alcohol and Drug Abuse Patient Records regulations: The Federal rules restrict any use of the information to criminally investigate or prosecute any alcohol or drug abuse patient.[facility] CenterIn the event this information is protected by the Federal Confidentiality of Alcohol and Drug Abuse Patient Records regulations: The Federal rules restrict any use of the information to criminally investigate or prosecute any alcohol or drug abuse patient.[facility] CenterIn the event this information is protected by the Federal Confidentiality of Alcohol and Drug Abuse Patient Records regulations: The Federal rules restrict any use of the information to criminally investigate or prosecute any alcohol or drug abuse patient.[facility] CenterIn the event this information is protected by the Federal Confidentiality of Alcohol and Drug Abuse Patient Records regulations: The Federal rules restrict any use of the information to criminally investigate or prosecute any alcohol or drug abuse patient.[facility] CenterIn the event this information is protected by the Federal Confidentiality of Alcohol and Drug Abuse Patient Records regulations: The Federal rules restrict any use of the information to criminally investigate or prosecute any alcohol or drug abuse patient.[facility] CenterIn the event this information is protected by the Federal Confidentiality of Alcohol and Drug Abuse Patient Records regulations: The Federal rules restrict any use of the information to criminally investigate or prosecute any alcohol or drug abuse patient.[facility] CenterIn the event this information is protected by the Federal Confidentiality of Alcohol and Drug Abuse Patient Records regulations: The Federal rules restrict any use of the information to criminally investigate or prosecute any alcohol or drug abuse patient.[facility] CenterIn the event this information is protected by the Federal Confidentiality of Alcohol and Drug Abuse Patient Records regulations: The Federal rules restrict any use of the information to criminally investigate or prosecute any alcohol or drug abuse patient.[facility] CenterIn the event this information is protected by the Federal Confidentiality of Alcohol and Drug Abuse Patient Records regulations: The Federal rules restrict any use of the information to criminally investigate or prosecute any alcohol or drug abuse patient.[facility] CenterIn the event this information is protected by the Federal Confidentiality of Alcohol and Drug Abuse Patient Records regulations: The Federal rules restrict any use of the information to criminally investigate or prosecute any alcohol or drug abuse patient.[facility] CenterIn the event this information is protected by the Federal Confidentiality of Alcohol and Drug Abuse Patient Records regulations: The Federal rules restrict any use of the information to criminally investigate or prosecute any alcohol or drug abuse patient.[facility] CenterIn the event this information is protected by the Federal Confidentiality of Alcohol and Drug Abuse Patient Records regulations: The Federal rules restrict any use of the information to criminally investigate or prosecute any alcohol or drug abuse patient.[facility] CenterIn the event this information is protected by the Federal Confidentiality of Alcohol and Drug Abuse Patient Records regulations: The Federal rules restrict any use of the information to criminally investigate or prosecute any alcohol or drug abuse patient.[facility] CenterIn the event this information is protected by the Federal Confidentiality of Alcohol and Drug Abuse Patient Records regulations: The Federal rules restrict any use of the information to criminally investigate or prosecute any alcohol or drug abuse patient.[facility] CenterIn the event this information is protected by the Federal Confidentiality of Alcohol and Drug Abuse Patient Records regulations: The Federal rules restrict any use of the information to criminally investigate or prosecute any alcohol or drug abuse patient.[facility] CenterIn the event this information is protected by the Federal Confidentiality of Alcohol and Drug Abuse Patient Records regulations: The Federal rules restrict any use of the information to criminally investigate or prosecute any alcohol or drug abuse patient.[facility] CenterIn the event this information is protected by the Federal Confidentiality of Alcohol and Drug Abuse Patient Records regulations: The Federal rules restrict any use of the information to criminally investigate or prosecute any alcohol or drug abuse patient.[facility] CenterIn the event this information is protected by the Federal Confidentiality of Alcohol and Drug Abuse Patient Records regulations: The Federal rules restrict any use of the information to criminally investigate or prosecute any alcohol or drug abuse patient.[facility] CenterIn the event this information is protected by the Federal Confidentiality of Alcohol and Drug Abuse Patient Records regulations: The Federal rules restrict any use of the information to criminally investigate or prosecute any alcohol or drug abuse patient.[facility] CenterIn the event this information is protected by the Federal Confidentiality of Alcohol and Drug Abuse Patient Records regulations: The Federal rules restrict any use of the information to criminally investigate or prosecute any alcohol or drug abuse patient.[facility] CenterIn the event this information is protected by the Federal Confidentiality of Alcohol and Drug Abuse Patient Records regulations: The Federal rules restrict any use of the information to criminally investigate or prosecute any alcohol or drug abuse patient.[facility] CenterIn the event this information is protected by the Federal Confidentiality of Alcohol and Drug Abuse Patient Records regulations: The Federal rules restrict any use of the information to criminally investigate or prosecute any alcohol or drug abuse patient.[facility] CenterIn the event this information is protected by the Federal Confidentiality of Alcohol and Drug Abuse Patient Records regulations: The Federal rules restrict any use of the information to criminally investigate or prosecute any alcohol or drug abuse patient.[facility] CenterIn the event this information is protected by the Federal Confidentiality of Alcohol and Drug Abuse Patient Records regulations: The Federal rules restrict any use of the information to criminally investigate or prosecute any alcohol or drug abuse patient.[facility] CenterIn the event this information is protected by the Federal Confidentiality of Alcohol and Drug Abuse Patient Records regulations: The Federal rules restrict any use of the information to criminally investigate or prosecute any alcohol or drug abuse patient.[facility] CenterIn the event this information is protected by the Federal Confidentiality of Alcohol and Drug Abuse Patient Records regulations: The Federal rules restrict any use of the information to criminally investigate or prosecute any alcohol or drug abuse patient.[facility] CenterIn the event this information is protected by the Federal Confidentiality of Alcohol and Drug Abuse Patient Records regulations: The Federal rules restrict any use of the information to criminally investigate or prosecute any alcohol or drug abuse patient.[facility] CenterIn the event this information is protected by the Federal Confidentiality of Alcohol and Drug Abuse Patient Records regulations: The Federal rules restrict any use of the information to criminally investigate or prosecute any alcohol or drug abuse patient.[facility] CenterIn the event this information is protected by the Federal Confidentiality of Alcohol and Drug Abuse Patient Records regulations: The Federal rules restrict any use of the information to criminally investigate or prosecute any alcohol or drug abuse patient.[facility] CenterIn the event this information is protected by the Federal Confidentiality of Alcohol and Drug Abuse Patient Records regulations: The Federal rules restrict any use of the information to criminally investigate or prosecute any alcohol or drug abuse patient.[facility] CenterIn the event this information is protected by the Federal Confidentiality of Alcohol and Drug Abuse Patient Records regulations: The Federal rules restrict any use of the information to criminally investigate or prosecute any alcohol or drug abuse patient.[facility] CenterIn the event this information is protected by the Federal Confidentiality of Alcohol and Drug Abuse Patient Records regulations: The Federal rules restrict any use of the information to criminally investigate or prosecute any alcohol or drug abuse patient.[facility] CenterIn the event this information is protected by the Federal Confidentiality of Alcohol and Drug Abuse Patient Records regulations: The Federal rules restrict any use of the information to criminally investigate or prosecute any alcohol or drug abuse patient.[facility] CenterIn the event this information is protected by the Federal Confidentiality of Alcohol and Drug Abuse Patient Records regulations: The Federal rules restrict any use of the information to criminally investigate or prosecute any alcohol or drug abuse patient.[facility] CenterIn the event this information is protected by the Federal Confidentiality of Alcohol and Drug Abuse Patient Records regulations: The Federal rules restrict any use of the information to criminally investigate or prosecute any alcohol or drug abuse patient.[facility] CenterIn the event this information is protected by the Federal Confidentiality of Alcohol and Drug Abuse Patient Records regulations: The Federal rules restrict any use of the information to criminally investigate or prosecute any alcohol or drug abuse patient.[facility] CenterIn the event this information is protected by the Federal Confidentiality of Alcohol and Drug Abuse Patient Records regulations: The Federal rules restrict any use of the information to criminally investigate or prosecute any alcohol or drug abuse patient.[facility] CenterIn the event this information is protected by the Federal Confidentiality of Alcohol and Drug Abuse Patient Records regulations: The Federal rules restrict any use of the information to criminally investigate or prosecute any alcohol or drug abuse patient.[facility] CenterIn the event this information is protected by the Federal Confidentiality of Alcohol and Drug Abuse Patient Records regulations: The Federal rules restrict any use of the information to criminally investigate or prosecute any alcohol or drug abuse patient.[facility] CenterIn the event this information is protected by the Federal Confidentiality of Alcohol and Drug Abuse Patient Records regulations: The Federal rules restrict any use of the information to criminally investigate or prosecute any alcohol or drug abuse patient.[facility] CenterIn the event this information is protected by the Federal Confidentiality of Alcohol and Drug Abuse Patient Records regulations: The Federal rules restrict any use of the information to criminally investigate or prosecute any alcohol or drug abuse patient.[facility] CenterIn the event this information is protected by the Federal Confidentiality of Alcohol and Drug Abuse Patient Records regulations: The Federal rules restrict any use of the information to criminally investigate or prosecute any alcohol or drug abuse patient.[facility] CenterIn the event this information is protected by the Federal Confidentiality of Alcohol and Drug Abuse Patient Records regulations: The Federal rules restrict any use of the information to criminally investigate or prosecute any alcohol or drug abuse patient.[facility] CenterIn the event this information is protected by the Federal Confidentiality of Alcohol and Drug Abuse Patient Records regulations: The Federal rules restrict any use of the information to criminally investigate or prosecute any alcohol or drug abuse patient.[facility] CenterIn the event this information is protected by the Federal Confidentiality of Alcohol and Drug Abuse Patient Records regulations: The Federal rules restrict any use of the information to criminally investigate or prosecute any alcohol or drug abuse patient.[facility] CenterIn the event this information is protected by the Federal Confidentiality of Alcohol and Drug Abuse Patient Records regulations: The Federal rules restrict any use of the information to criminally investigate or prosecute any alcohol or drug abuse patient.[facility] CenterIn the event this information is protected by the Federal Confidentiality of Alcohol and Drug Abuse Patient Records regulations: The Federal rules restrict any use of the information to criminally investigate or prosecute any alcohol or drug abuse patient.[facility]In the event this information is protected by the Federal Confidentiality of Alcohol and Drug Abuse Patient Records regulations: The Federal rules restrict any use of the information to criminally investigate or prosecute any alcohol or drug abuse patient.[facility] CenterIn the event this information is protected by the Federal Confidentiality of Alcohol and Drug Abuse Patient Records regulations: The Federal rules restrict any use of the information to criminally investigate or prosecute any alcohol or drug abuse patient.[facility] CenterIn the event this information is protected by the Federal Confidentiality of Alcohol and Drug Abuse Patient Records regulations: The Federal rules restrict any use of the information to criminally investigate or prosecute any alcohol or drug abuse patient.[facility] CenterIn the event this information is protected by the Federal Confidentiality of Alcohol and Drug Abuse Patient Records regulations: The Federal rules restrict any use of the information to criminally investigate or prosecute any alcohol or drug abuse patient.[facility] CenterIn the event this information is protected by the Federal Confidentiality of Alcohol and Drug Abuse Patient Records regulations: The Federal rules restrict any use of the information to criminally investigate or prosecute any alcohol or drug abuse patient.[facility] CenterIn the event this information is protected by the Federal Confidentiality of Alcohol and Drug Abuse Patient Records regulations: The Federal rules restrict any use of the information to criminally investigate or prosecute any alcohol or drug abuse patient.[facility] CenterIn the event this information is protected by the Federal Confidentiality of Alcohol and Drug Abuse Patient Records regulations: The Federal rules restrict any use of the information to criminally investigate or prosecute any alcohol or drug abuse patient.[facility] CenterIn the event this information is protected by the Federal Confidentiality of Alcohol and Drug Abuse Patient Records regulations: The Federal rules restrict any use of the information to criminally investigate or prosecute any alcohol or drug abuse patient.[facility] CenterIn the event this information is protected by the Federal Confidentiality of Alcohol and Drug Abuse Patient Records regulations: The Federal rules restrict any use of the information to criminally investigate or prosecute any alcohol or drug abuse patient.[facility] CenterIn the event this information is protected by the Federal Confidentiality of Alcohol and Drug Abuse Patient Records regulations: The Federal rules restrict any use of the information to criminally investigate or prosecute any alcohol or drug abuse patient.[facility] CenterIn the event this information is protected by the Federal Confidentiality of Alcohol and Drug Abuse Patient Records regulations: The Federal rules restrict any use of the information to criminally investigate or prosecute any alcohol or drug abuse patient.[facility] CenterIn the event this information is protected by the Federal Confidentiality of Alcohol and Drug Abuse Patient Records regulations: The Federal rules restrict any use of the information to criminally investigate or prosecute any alcohol or drug abuse patient.[facility] CenterIn the event this information is protected by the Federal Confidentiality of Alcohol and Drug Abuse Patient Records regulations: The Federal rules restrict any use of the information to criminally investigate or prosecute any alcohol or drug abuse patient.[facility] CenterIn the event this information is protected by the Federal Confidentiality of Alcohol and Drug Abuse Patient Records regulations: The Federal rules restrict any use of the information to criminally investigate or prosecute any alcohol or drug abuse patient.[facility] CenterIn the event this information is protected by the Federal Confidentiality of Alcohol and Drug Abuse Patient Records regulations: The Federal rules restrict any use of the information to criminally investigate or prosecute any alcohol or drug abuse patient.[facility] CenterIn the event this information is protected by the Federal Confidentiality of Alcohol and Drug Abuse Patient Records regulations: The Federal rules restrict any use of the information to criminally investigate or prosecute any alcohol or drug abuse patient.[facility] CenterIn the event this information is protected by the Federal Confidentiality of Alcohol and Drug Abuse Patient Records regulations: The Federal rules restrict any use of the information to criminally investigate or prosecute any alcohol or drug abuse patient.[facility] CenterIn the event this information is protected by the Federal Confidentiality of Alcohol and Drug Abuse Patient Records regulations: The Federal rules restrict any use of the information to criminally investigate or prosecute any alcohol or drug abuse patient.[facility] CenterIn the event this information is protected by the Federal Confidentiality of Alcohol and Drug Abuse Patient Records regulations: The Federal rules restrict any use of the information to criminally investigate or prosecute any alcohol or drug abuse patient.[facility] CenterIn the event this information is protected by the Federal Confidentiality of Alcohol and Drug Abuse Patient Records regulations: The Federal rules restrict any use of the information to criminally investigate or prosecute any alcohol or drug abuse patient.[facility] CenterIn the event this information is protected by the Federal Confidentiality of Alcohol and Drug Abuse Patient Records regulations: The Federal rules restrict any use of the information to criminally investigate or prosecute any alcohol or drug abuse patient.[facility] CenterIn the event this information is protected by the Federal Confidentiality of Alcohol and Drug Abuse Patient Records regulations: The Federal rules restrict any use of the information to criminally investigate or prosecute any alcohol or drug abuse patient.[facility] CenterIn the event this information is protected by the Federal Confidentiality of Alcohol and Drug Abuse Patient Records regulations: The Federal rules restrict any use of the information to criminally investigate or prosecute any alcohol or drug abuse patient.[facility] CenterIn the event this information is protected by the Federal Confidentiality of Alcohol and Drug Abuse Patient Records regulations: The Federal rules restrict any use of the information to criminally investigate or prosecute any alcohol or drug abuse patient.[facility] CenterIn the event this information is protected by the Federal Confidentiality of Alcohol and Drug Abuse Patient Records regulations: The Federal rules restrict any use of the information to criminally investigate or prosecute any alcohol or drug abuse patient.[facility] CenterIn the event this information is protected by the Federal Confidentiality of Alcohol and Drug Abuse Patient Records regulations: The Federal rules restrict any use of the information to criminally investigate or prosecute any alcohol or drug abuse patient.[facility] CenterIn the event this information is protected by the Federal Confidentiality of Alcohol and Drug Abuse Patient Records regulations: The Federal rules restrict any use of the information to criminally investigate or prosecute any alcohol or drug abuse patient.[facility] CenterIn the event this information is protected by the Federal Confidentiality of Alcohol and Drug Abuse Patient Records regulations: The Federal rules restrict any use of the information to criminally investigate or prosecute any alcohol or drug abuse patient.[facility] CenterIn the event this information is protected by the Federal Confidentiality of Alcohol and Drug Abuse Patient Records regulations: The Federal rules restrict any use of the information to criminally investigate or prosecute any alcohol or drug abuse patient.[facility] CenterIn the event this information is protected by the Federal Confidentiality of Alcohol and Drug Abuse Patient Records regulations: The Federal rules restrict any use of the information to criminally investigate or prosecute any alcohol or drug abuse patient.[facility] CenterIn the event this information is protected by the Federal Confidentiality of Alcohol and Drug Abuse Patient Records regulations: The Federal rules restrict any use of the information to criminally investigate or prosecute any alcohol or drug abuse patient.[facility] CenterIn the event this information is protected by the Federal Confidentiality of Alcohol and Drug Abuse Patient Records regulations: The Federal rules restrict any use of the information to criminally investigate or prosecute any alcohol or drug abuse patient.[facility] CenterIn the event this information is protected by the Federal Confidentiality of Alcohol and Drug Abuse Patient Records regulations: The Federal rules restrict any use of the information to criminally investigate or prosecute any alcohol or drug abuse patient.[facility] CenterIn the event this information is protected by the Federal Confidentiality of Alcohol and Drug Abuse Patient Records regulations: The Federal rules restrict any use of the information to criminally investigate or prosecute any alcohol or drug abuse patient.[facility] CenterIn the event this information is protected by the Federal Confidentiality of Alcohol and Drug Abuse Patient Records regulations: The Federal rules restrict any use of the information to criminally investigate or prosecute any alcohol or drug abuse patient.[facility] CenterIn the event this information is protected by the Federal Confidentiality of Alcohol and Drug Abuse Patient Records regulations: The Federal rules restrict any use of the information to criminally investigate or prosecute any alcohol or drug abuse patient.[facility] CenterIn the event this information is protected by the Federal Confidentiality of Alcohol and Drug Abuse Patient Records regulations: The Federal rules restrict any use of the information to criminally investigate or prosecute any alcohol or drug abuse patient.[facility] CenterIn the event this information is protected by the Federal Confidentiality of Alcohol and Drug Abuse Patient Records regulations: The Federal rules restrict any use of the information to criminally investigate or prosecute any alcohol or drug abuse patient.[facility] CenterIn the event this information is protected by the Federal Confidentiality of Alcohol and Drug Abuse Patient Records regulations: The Federal rules restrict any use of the information to criminally investigate or prosecute any alcohol or drug abuse patient.[facility] CenterIn the event this information is protected by the Federal Confidentiality of Alcohol and Drug Abuse Patient Records regulations: The Federal rules restrict any use of the information to criminally investigate or prosecute any alcohol or drug abuse patient.[facility] CenterIn the event this information is protected by the Federal Confidentiality of Alcohol and Drug Abuse Patient Records regulations: The Federal rules restrict any use of the information to criminally investigate or prosecute any alcohol or drug abuse patient.[facility] CenterIn the event this information is protected by the Federal Confidentiality of Alcohol and Drug Abuse Patient Records regulations: The Federal rules restrict any use of the information to criminally investigate or prosecute any alcohol or drug abuse patient.[facility] CenterIn the event this information is protected by the Federal Confidentiality of Alcohol and Drug Abuse Patient Records regulations: The Federal rules restrict any use of the information to criminally investigate or prosecute any alcohol or drug abuse patient.[facility] CenterIn the event this information is protected by the Federal Confidentiality of Alcohol and Drug Abuse Patient Records regulations: The Federal rules restrict any use of the information to criminally investigate or prosecute any alcohol or drug abuse patient.[facility] CenterIn the event this information is protected by the Federal Confidentiality of Alcohol and Drug Abuse Patient Records regulations: The Federal rules restrict any use of the information to criminally investigate or prosecute any alcohol or drug abuse patient.[facility] CenterIn the event this information is protected by the Federal Confidentiality of Alcohol and Drug Abuse Patient Records regulations: The Federal rules restrict any use of the information to criminally investigate or prosecute any alcohol or drug abuse patient.[facility] CenterIn the event this information is protected by the Federal Confidentiality of Alcohol and Drug Abuse Patient Records regulations: The Federal rules restrict any use of the information to criminally investigate or prosecute any alcohol or drug abuse patient.[facility] CenterIn the event this information is protected by the Federal Confidentiality of Alcohol and Drug Abuse Patient Records regulations: The Federal rules restrict any use of the information to criminally investigate or prosecute any alcohol or drug abuse patient.[facility] CenterIn the event this information is protected by the Federal Confidentiality of Alcohol and Drug Abuse Patient Records regulations: The Federal rules restrict any use of the information to criminally investigate or prosecute any alcohol or drug abuse patient.[facility] CenterIn the event this information is protected by the Federal Confidentiality of Alcohol and Drug Abuse Patient Records regulations: The Federal rules restrict any use of the information to criminally investigate or prosecute any alcohol or drug abuse patient.[facility] CenterIn the event this information is protected by the Federal Confidentiality of Alcohol and Drug Abuse Patient Records regulations: The Federal rules restrict any use of the information to criminally investigate or prosecute any alcohol or drug abuse patient.[facility] CenterIn the event this information is protected by the Federal Confidentiality of Alcohol and Drug Abuse Patient Records regulations: The Federal rules restrict any use of the information to criminally investigate or prosecute any alcohol or drug abuse patient.[facility] CenterIn the event this information is protected by the Federal Confidentiality of Alcohol and Drug Abuse Patient Records regulations: The Federal rules restrict any use of the information to criminally investigate or prosecute any alcohol or drug abuse patient.[facility] CenterIn the event this information is protected by the Federal Confidentiality of Alcohol and Drug Abuse Patient Records regulations: The Federal rules restrict any use of the information to criminally investigate or prosecute any alcohol or drug abuse patient.[facility] CenterIn the event this information is protected by the Federal Confidentiality of Alcohol and Drug Abuse Patient Records regulations: The Federal rules restrict any use of the information to criminally investigate or prosecute any alcohol or drug abuse patient.[facility] CenterIn the event this information is protected by the Federal Confidentiality of Alcohol and Drug Abuse Patient Records regulations: The Federal rules restrict any use of the information to criminally investigate or prosecute any alcohol or drug abuse patient.[facility] CenterIn the event this information is protected by the Federal Confidentiality of Alcohol and Drug Abuse Patient Records regulations: The Federal rules restrict any use of the information to criminally investigate or prosecute any alcohol or drug abuse patient.[facility] CenterIn the event this information is protected by the Federal Confidentiality of Alcohol and Drug Abuse Patient Records regulations: The Federal rules restrict any use of the information to criminally investigate or prosecute any alcohol or drug abuse patient.[facility] CenterIn the event this information is protected by the Federal Confidentiality of Alcohol and Drug Abuse Patient Records regulations: The Federal rules restrict any use of the information to criminally investigate or prosecute any alcohol or drug abuse patient.[facility] CenterIn the event this information is protected by the Federal Confidentiality of Alcohol and Drug Abuse Patient Records regulations: The Federal rules restrict any use of the information to criminally investigate or prosecute any alcohol or drug abuse patient.[facility] CenterIn the event this information is protected by the Federal Confidentiality of Alcohol and Drug Abuse Patient Records regulations: The Federal rules restrict any use of the information to criminally investigate or prosecute any alcohol or drug abuse patient.[facility] CenterIn the event this information is protected by the Federal Confidentiality of Alcohol and Drug Abuse Patient Records regulations: The Federal rules restrict any use of the information to criminally investigate or prosecute any alcohol or drug abuse patient.[facility] CenterIn the event this information is protected by the Federal Confidentiality of Alcohol and Drug Abuse Patient Records regulations: The Federal rules restrict any use of the information to criminally investigate or prosecute any alcohol or drug abuse patient.[facility] CenterIn the event this information is protected by the Federal Confidentiality of Alcohol and Drug Abuse Patient Records regulations: The Federal rules restrict any use of the information to criminally investigate or prosecute any alcohol or drug abuse patient.[facility] CenterIn the event this information is protected by the Federal Confidentiality of Alcohol and Drug Abuse Patient Records regulations: The Federal rules restrict any use of the information to criminally investigate or prosecute any alcohol or drug abuse patient.[facility] CenterIn the event this information is protected by the Federal Confidentiality of Alcohol and Drug Abuse Patient Records regulations: The Federal rules restrict any use of the information to criminally investigate or prosecute any alcohol or drug abuse patient.[facility] CenterIn the event this information is protected by the Federal Confidentiality of Alcohol and Drug Abuse Patient Records regulations: The Federal rules restrict any use of the information to criminally investigate or prosecute any alcohol or drug abuse patient.[facility] CenterIn the event this information is protected by the Federal Confidentiality of Alcohol and Drug Abuse Patient Records regulations: The Federal rules restrict any use of the information to criminally investigate or prosecute any alcohol or drug abuse patient.[facility] CenterIn the event this information is protected by the Federal Confidentiality of Alcohol and Drug Abuse Patient Records regulations: The Federal rules restrict any use of the information to criminally investigate or prosecute any alcohol or drug abuse patient.[facility] CenterIn the event this information is protected by the Federal Confidentiality of Alcohol and Drug Abuse Patient Records regulations: The Federal rules restrict any use of the information to criminally investigate or prosecute any alcohol or drug abuse patient.[facility] CenterIn the event this information is protected by the Federal Confidentiality of Alcohol and Drug Abuse Patient Records regulations: The Federal rules restrict any use of the information to criminally investigate or prosecute any alcohol or drug abuse patient.[facility] CenterIn the event this information is protected by the Federal Confidentiality of Alcohol and Drug Abuse Patient Records regulations: The Federal rules restrict any use of the information to criminally investigate or prosecute any alcohol or drug abuse patient.[facility] CenterIn the event this information is protected by the Federal Confidentiality of Alcohol and Drug Abuse Patient Records regulations: The Federal rules restrict any use of the information to criminally investigate or prosecute any alcohol or drug abuse patient.[facility] CenterIn the event this information is protected by the Federal Confidentiality of Alcohol and Drug Abuse Patient Records regulations: The Federal rules restrict any use of the information to criminally investigate or prosecute any alcohol or drug abuse patient.[facility] CenterIn the event this information is protected by the Federal Confidentiality of Alcohol and Drug Abuse Patient Records regulations: The Federal rules restrict any use of the information to criminally investigate or prosecute any alcohol or drug abuse patient.[facility] CenterIn the event this information is protected by the Federal Confidentiality of Alcohol and Drug Abuse Patient Records regulations: The Federal rules restrict any use of the information to criminally investigate or prosecute any alcohol or drug abuse patient.[facility] CenterIn the event this information is protected by the Federal Confidentiality of Alcohol and Drug Abuse Patient Records regulations: The Federal rules restrict any use of the information to criminally investigate or prosecute any alcohol or drug abuse patient.[facility] CenterIn the event this information is protected by the Federal Confidentiality of Alcohol and Drug Abuse Patient Records regulations: The Federal rules restrict any use of the information to criminally investigate or prosecute any alcohol or drug abuse patient.[facility] CenterIn the event this information is protected by the Federal Confidentiality of Alcohol and Drug Abuse Patient Records regulations: The Federal rules restrict any use of the information to criminally investigate or prosecute any alcohol or drug abuse patient.[facility] Care Teams (unrecognized sec tion and content) Tree Care Foreman Relationship Specialty Start Date End Date Christina Azul MD [address] [place] [id number] PCP - General Family Practice 07/03/21 Sofie Diana MD [address] [place] [address] Primary Staff Physician Cardiology 07/03/21 Verito Whelan MD [address] [place], [place] [id number] Referring Pulmonary Disease 10/04/21 Tree Care Foreman Relationship Specialty Start Date End Date Christina Azul MD [address] [place] [address] PCP - General Family Practice 07/03/21 Sofie Diana MD [address] [place] [address] Primary Staff Physician Cardiology 07/03/21 Verito Whelan MD [address] [place] [address] Referring Pulmonary Disease 10/04/21 Tree Care Foreman Relationship Specialty Start Date End Date Christina Azul MD [address] [place] [address] PCP - General Family Practice 07/03/21 Sofie Diana MD [address] [place] [address] Primary Staff Physician Cardiology 07/03/21 Verito Whelan MD [address] [place] [address] Referring Pulmonary Disease 10/04/21 Tree Care Foreman Relationship Specialty Start Date End Date Christina Azul MD [address] [place] [address] PCP - General Family Practice 07/03/21 Sofie Diana MD [address] [place] [address] Primary Staff Physician Cardiology 07/03/21 Verito Whelan MD [address] [place] [address] Referring Pulmonary Disease 10/04/21 Nina Grigsby MD [address] [place] [place] [address] Physician Hematology/Oncology 10/25/21 Patricia Miller, OZZIE.TYPEWRITER TESTER [address] [place] [place] [address] Nurse Practitioner Hematology/Oncology 10/25/21 Denita Rai, KERRY [address] [place] [place] [address] Specialty Flash Drier Operator Hematology/Oncology 10/25/21 Tree Care Foreman Relationship Specialty Start Date End Date Christina Azul MD [address] [place] [address] PCP - General Family Practice 07/03/21 Sofie Diana MD [address] [place] [address] Primary Staff Physician Cardiology 07/03/21 Verito Whelan MD [address] [place], [place] [id number] Referring Pulmonary Disease 10/04/21 Nina Grigsby MD [address] [place] [address] [place] [address] Physician Hematology/Oncology 10/25/21 Patricia Miller, CONCERT MANAGER.TYPEWRITER TESTER [address] [place] [address] Nurse Practitioner Hematology/Oncology 10/25/21 Denita Rai, RN [address] [place] [address] Specialty Flash Drier Operator Hematology/Oncology 10/25/21 Tree Care Foreman Relationship Specialty Start Date End Date Christina Azul MD [address] [place] [id number] PCP - General Family Practice 07/03/21 Sofie Diana MD [address] [place] [address] Primary Staff Physician Cardiology 07/03/21 Verito Whelan MD [address] [place], [place] [id number] Referring Pulmonary Disease 10/04/21 Tree Care Foreman Relationship Specialty Start Date End Date Christina Azul MD [address] [place], [place] [id number] PCP - General [facility] Practice 07/03/21 Sofie Diana MD [address] [place] [address] Primary Staff Physician Cardiology 07/03/21 Verito Whelan MD [address] [place] [address] Referring Pulmonary Disease 10/04/21 Nina Grigsby MD [address] [place] [address] [place] [address] Physician Hematology/Oncology 10/25/21 Patricia Miller, CONCERT MANAGER.TYPEWRITER TESTER [address] [place] [address] Nurse Practitioner Hematology/Oncology 10/25/21 Denita Rai, RN [address] [place] [address] Specialty Flash Drier Operator Hematology/Oncology 10/25/21 Tree Care Foreman Relationship Specialty Start Date End Date Christina Azul MD [address] [place] [id number] PCP - General Family Practice 07/03/21 Sofie Diana MD [address] [place] [address] Primary Staff Physician Cardiology 07/03/21 Verito Whelan MD [address] [place] [address] Referring Pulmonary Disease 10/04/21 Nina Grigsby MD [address] [place] [address] Physician Hematology/Oncology 10/25/21 Patricia Miller, CONCERT MANAGER.[address] [place] [address] Nurse Practitioner Hematology/Oncology 10/25/21 Denita Rai, KERRY [address] [place] [address] [place] [address] Specialty Flash Drier Operator Hematology/Oncology 10/25/21 Tree Care Foreman Relationship Specialty Start Date End Date Christina Azul MD [address] [place] [address] PCP - General Family Practice 07/03/21 Sofie Diana MD [address] [place] [address] Primary Staff Physician Cardiology 07/03/21 Verito Whelan MD [address] [place] [address] Referring Pulmonary Disease 10/04/21 Nina Grigsby MD [address] [place] [address] [address] [place] [address] Physician Hematology/Oncology 10/25/21 Patricia Miller, CONCERT MANAGER.[address] [place] [address] Nurse Practitioner Hematology/Oncology 10/25/21 Denita Rai, KERRY [address] [place] [address] [place] [address] Specialty Flash Drier Operator Hematology/Oncology 10/25/21 Tree Care Foreman Relationship Specialty Start Date End Date Christina Azul MD [address] [place] [address] PCP - General Family Practice 07/03/21 Sofie Diana MD [address] [place], [place] [id number] Primary Staff Physician Cardiology 07/03/21 Verito Whelan MD [address] [place], [place] [id number] Referring Pulmonary Disease 10/04/21 Nina Grigsby MD [address] [facility] [place] [address] Physician Hematology/Oncology 10/25/21 Patricia Miller, CONCERT MANAGER.TYPEWRITER TESTER [address] [facility] [place] [address] Nurse Practitioner Hematology/Oncology 10/25/21 Denita Rai, KERRY [address] [place] [place] [address] Specialty Flash Drier Operator Hematology/Oncology 10/25/21 Tree Care Foreman Relationship Specialty Start Date End Date Christina Azul MD [address] [place] [address] PCP - General Family Practice 07/03/21 Sofie Diana MD [address] [place] [address] Primary Staff Physician Cardiology 07/03/21 Verito Whelan MD [address] [place] [address] Referring Pulmonary Disease 10/04/21 Nina Grigsby MD [address] [facility] [place] [address] Physician Hematology/Oncology 10/25/21 Patricia Miller, CONCERT MANAGER.TYPEWRITER TESTER [address] [place] [address] [place] [address] Nurse Practitioner Hematology/Oncology 10/25/21 Denita Rai, RN [address] [facility] [place] [address] Specialty Flash Drier Operator Hematology/Oncology 10/25/21 Tree Care Foreman Relationship Specialty Start Date End Date Christina Azul MD [address] [place] [id number] PCP - General Family Practice 07/03/21 Sofie Diana MD [address] [place], [place] [id number] Primary Staff Physician Cardiology 07/03/21 Verito Whelan MD [address] [place] [address] Referring Pulmonary Disease 10/04/21 Nina Grigsby MD [address] [facility] [place] [address] Physician Hematology/Oncology 10/25/21 Patricia Miller, CONCERT MANAGER.[facility] [address] [address] [place] [address] Nurse Practitioner Hematology/Oncology 10/25/21 Denita Rai, RN [address] [place] [address] Specialty Flash Drier Operator Hematology/Oncology 10/25/21 Tree Care Foreman Relationship Specialty Start Date End Date Christina Azul MD [address] [place] [id number] PCP - General Family Practice 07/03/21 Sofie Diana MD [address] [place] [address] Primary Staff Physician Cardiology 07/03/21 Verito Whelan MD [address] [place] [address] Referring Pulmonary Disease 10/04/21 Nina Grigsby MD [address] [facility] [place] [address] Physician Hematology/Oncology 10/25/21 Patricia Miller, CONCERT MANAGER.TYPEWRITER TESTER [address] [facility] [place] [address] Nurse Practitioner Hematology/Oncology 10/25/21 Denita Rai, KERRY [address] [place] [address] [place] [address] Specialty Flash Drier Operator Hematology/Oncology 10/25/21 Tree Care Foreman Relationship Specialty Start Date End Date Christina Azul MD [address] [place] [address] PCP - General Family Practice 07/03/21 Sofie Diana MD [address] [place] [address] Primary Staff Physician Cardiology 07/03/21 Verito Whelan MD [address] [place] [address] Referring Pulmonary Disease 10/04/21 Nina Grigsby MD [address] [facility] [place] [address] Physician Hematology/Oncology 10/25/21 Patricia Miller, CONCERT MANAGER.TYPEWRITER TESTER [address] [facility] [place] [address] Nurse Practitioner Hematology/Oncology 10/25/21 Denita Rai, KERRY [address] [facility] [place] [address] Specialty Flash Drier Operator Hematology/Oncology 10/25/21 Tree Care Foreman Relationship Specialty Start Date End Date Christina Azul MD [address] [place] [address] PCP - General Family Practice 07/03/21 Sofie Diana MD [address] [place] [address] Primary Staff Physician Cardiology 07/03/21 Verito Whelan MD [address] [place], [place] [id number] Referring Pulmonary Disease 10/04/21 Nina Grigsby MD [address] [facility] [place] [address] Physician Hematology/Oncology 10/25/21 Patricia Miller, CONCERT MANAGER.TYPEWRITER TESTER [address] [facility] [place] [address] Nurse Practitioner Hematology/Oncology 10/25/21 Denita Rai, KERRY [address] [place] [address] Specialty Flash Drier Operator Hematology/Oncology 10/25/21 Tree Care Foreman Relationship Specialty Start Date End Date Christina Azul MD [address] [place] [address] PCP - General Family Practice 07/03/21 Sofie Diana MD [address] [place] [address] Primary Staff Physician Cardiology 07/03/21 Verito Whelan MD [address] [place] [address] Referring Pulmonary Disease 10/04/21 Nina Grigsby MD [address] [place] [place] [address] Physician Hematology/Oncology 10/25/21 Patricia Miller, CONCERT MANAGER.TYPEWRITER TESTER [address] [place] [place] [address] Nurse Practitioner Hematology/Oncology 10/25/21 Denita Rai, RN [address] [place] [place] [address] Specialty Flash Drier Operator Hematology/Oncology 10/25/21 Tree Care Foreman Relationship Specialty Start Date End Date Christina Azul MD [address] [place] [address] PCP - General Family Practice 07/03/21 Sofie Diana MD [address] [place] [address] Primary Staff Physician Cardiology 07/03/21 Verito Whelan MD [address] [place] [address] Referring Pulmonary Disease 10/04/21 Nina Grigsby MD [address] [place] [place] [address] Physician Hematology/Oncology 10/25/21 Patricia Miller, CONCERT MANAGER.TYPEWRITER TESTER [address] [place] [address] Nurse Practitioner Hematology/Oncology 10/25/21 Denita Rai, RN [address] [place] [place] [address] Specialty Flash Drier Operator Hematology/Oncology 10/25/21 Tree Care Foreman Relationship Specialty Start Date End Date Christina Azul MD [address] [place] [address] PCP - General Family Practice 07/03/21 Sofie Diana MD [address] [place] [address] Primary Staff Physician Cardiology 07/03/21 Verito Whelan MD [address] [place] [address] Referring Pulmonary Disease 10/04/21 Nina Grigsby MD [address] [facility] [place] [address] Physician Hematology/Oncology 10/25/21 Patricia Miller APRN.TYPEWRITER TESTER [address] [facility] [place] [address] Nurse Practitioner Hematology/Oncology 10/25/21 Denita Rai, KERRY [address] [facility] [place] [address] Specialty Flash Drier Operator Hematology/Oncology 10/25/21 Tree Care Foreman Relationship Specialty Start Date End Date Christina Azul MD [address] [place] [id number] PCP - General Family Practice 07/03/21 Sofie Diana MD [address] [place] [address] Primary Staff Physician Cardiology 07/03/21 Verito Whelan MD [address] [place] [address] Referring Pulmonary Disease 10/04/21 Nina Grigsby MD [address] [facility] [place] [address] Physician Hematology/Oncology 10/25/21 Patricia Miller, CONCERT MANAGER.[facility] [address] [address] [place] [address] Nurse Practitioner Hematology/Oncology 10/25/21 Denita Rai, KERRY [address] [place] [address] Specialty Flash Drier Operator Hematology/Oncology 10/25/21 Tree Care Foreman Relationship Specialty Start Date End Date Christina Azul MD [address] [place] [address] PCP - General Family Practice 07/03/21 Sofie Diana MD [address] [place] [address] Primary Staff Physician Cardiology 07/03/21 Verito Whelan MD [address] [place] [address] Referring Pulmonary Disease 10/04/21 Nina Grigsby MD [address] [place] [address] Physician Hematology/Oncology 10/25/21 Patricia Miller, CONCERT MANAGER.[address] [place] [address] Nurse Practitioner Hematology/Oncology 10/25/21 Denita Rai, KERRY [address] [facility] [place] [address] Specialty Flash Drier Operator Hematology/Oncology 10/25/21 Tree Care Foreman Relationship Specialty Start Date End Date Christina Azul MD [address] [place] [address] PCP - General Family Practice 07/03/21 Sofie Diana MD [address] [place] [address] Primary Staff Physician Cardiology 07/03/21 Verito Whelan MD [address] [place] [address] Referring Pulmonary Disease 10/04/21 Nina Grigsby MD [address] [place] [place] [address] Physician Hematology/Oncology 10/25/21 Patricia Miller, CONCERT MANAGER.TYPEWRITER TESTER [address] [facility] [place] [address] Nurse Practitioner Hematology/Oncology 10/25/21 Denita Rai, KERRY [address] [place] [address] [place] [address] Specialty Flash Drier Operator Hematology/Oncology 10/25/21 Tree Care Foreman Relationship Specialty Start Date End Date Christina Azul MD [address] [place] [address] PCP - General [facility] Practice 07/03/21 Sofie Diana MD [address] [place] [address] Primary Staff Physician Cardiology 07/03/21 Verito Whelan MD [address] [place] [address] Referring Pulmonary Disease 10/04/21 Nina Grigsby MD [address] [place] [address] Physician Hematology/Oncology 10/25/21 Patricia Miller, CONCERT MANAGER.TYPEWRITER TESTER [address] [place] [address] [place] [address] Nurse Practitioner Hematology/Oncology 10/25/21 Denita Rai, KERRY [address] [facility] [place] [address] Specialty Flash Drier Operator Hematology/Oncology 10/25/21 Tree Care Foreman Relationship Specialty Start Date End Date Christina Azul MD [address] [place], [place] [id number] PCP - General Family Practice 07/03/21 Sofie Diana MD [address] [place], [place] 0758995 Primary Staff Physician Cardiology 07/03/21 Verito Whelan MD [address] [place], [place] 4305895 Referring Pulmonary Disease 10/04/21 Nina Grigsby MD [address] [facility] [place] [address] Physician Hematology/Oncology 10/25/21 Patricia Miller, OZZIE.[facility] [address] [address] [place] [address] Nurse Practitioner Hematology/Oncology 10/25/21 Denita Rai, KERRY [address] [place] [address] [place] [address] Specialty Flash Drier Operator Hematology/Oncology 10/25/21 Tree Care Foreman Relationship Specialty Start Date End Date Christina Azul MD [address] [place] [address] PCP - General Family Practice 07/03/21 Sofie Diana MD [address] [place] [address] Primary Staff Physician Cardiology 07/03/21 Verito Wehlan MD [address] [place] [address] Referring Pulmonary Disease 10/04/21 Nina Grigsby MD [address] [place] [place] [address] Physician Hematology/Oncology 10/25/21 Patricia Miller, CONCERT MANAGER.TYPEWRITER TESTER [address] [facility] [place] [address] Nurse Practitioner Hematology/Oncology 10/25/21 Denita Rai, KERRY [address] [place] [address] [place] [address] Specialty Flash Drier Operator Hematology/Oncology 10/25/21 Tree Care Foreman Relationship Specialty Start Date End Date Christina Azul MD [address] [place] [address] PCP - General Family Practice 07/03/21 Sofie Diana MD [address] [place] [address] Primary Staff Physician Cardiology 07/03/21 Verito Whelan MD [address] [place] [address] Referring Pulmonary Disease 10/04/21 Nina Grigsby MD [address] [place] [place] [address] Physician Hematology/Oncology 10/25/21 Patricia Miller, CONCERT MANAGER.TYPEWRITER TESTER [address] [facility] [place] [address] Nurse Practitioner Hematology/Oncology 10/25/21 Denita Rai, KERRY [address] [facility] [place] [address] Specialty Flash Drier Operator Hematology/Oncology 10/25/21 Tree Care Foreman Relationship Specialty Start Date End Date Christina Azul MD [address] [place] [id number] PCP - General Family Practice 07/03/21 Sofie Diana MD [address] [place] [address] Primary Staff Physician Cardiology 07/03/21 Verito Whelan MD [address] [place] [address] Referring Pulmonary Disease 10/04/21 Nina Grigsby MD [address] [facility] [place] [address] Physician Hematology/Oncology 10/25/21 Patricia Miller, CONCERT MANAGER.TYPEWRITER TESTER [address] [facility] [place] [address] Nurse Practitioner Hematology/Oncology 10/25/21 Denita Rai, RN [address] [facility] [place] [address] Specialty Flash Drier Operator Hematology/Oncology 10/25/21 Tree Care Foreman Relationship Specialty Start Date End Date Christina Azul MD [address] [place] [id number] PCP - General Family Practice 07/03/21 Sofie Diana MD [address] [place] [address] Primary Staff Physician Cardiology 07/03/21 Verito Whelan MD [address] [place] [address] Referring Pulmonary Disease 10/04/21 Nina Grigsby MD [address] [facility] [place] [address] Physician Hematology/Oncology 10/25/21 Patricia Miller, CONCERT MANAGER.TYPEWRITER TESTER [address] [facility] [place] [address] Nurse Practitioner Hematology/Oncology 10/25/21 Denita Rai, KERRY [address] [place] [address] [place] [address] Specialty Flash Drier Operator Hematology/Oncology 10/25/21 Team Status: Inactive Member Role Status Dates Cristy Swann PA-C Attending Provider Active PHYSICIAN NO FAMILY Primary Care Provider Active Team Status: Active Member Role Status Dates PHYSICIAN NO FAMILY Primary Care Provider Active Tree Care Foreman Relationship Specialty Start Date End Date Christina Azul MD [address] [place] [address] PCP - General Family Practice 07/03/21 Sofie Diana MD [address] [place] [address] Primary Staff Physician Cardiology 07/03/21 Verito Whelan MD [address] [place] [address] Referring Pulmonary Disease 10/04/21 Nina Grigsby MD [address] [place] [place] [address] Physician Hematology/Oncology 10/25/21 Patricia Miller, CONCERT MANAGER.TYPEWRITER TESTER [address] [facility] [place] [address] Nurse Practitioner Hematology/Oncology 10/25/21 Denita Rai, KERRY [address] [place] [address] [place] [address] Specialty Flash Drier Operator Hematology/Oncology 10/25/21 Tree Care Foreman Relationship Specialty Start Date End Date Christina Azul MD [address] [place] [address] PCP - General Family Practice 07/03/21 Sofie Diana MD [address] [place] [address] Primary Staff Physician Cardiology 07/03/21 Verito Whelan MD [address] [place], [place] 9770495 Referring Pulmonary Disease 10/04/21 Nina Grigsby MD [address] [place] [address] [place] [address] Physician Hematology/Oncology 10/25/21 Patricia Miller, CONCERT MANAGER.TYPEWRITER TESTER [address] [facility] [place] [address] Nurse Practitioner Hematology/Oncology 10/25/21 Denita Rai, RN [address] [facility] [place] [address] Specialty Flash Drier Operator Hematology/Oncology 10/25/21 Tree Care Foreman Relationship Specialty Start Date End Date Christina Azul MD [address] [place] [id number] PCP - General Family Practice 07/03/21 Sofie Diana MD [address] [place] [address] Primary Staff Physician Cardiology 07/03/21 Verito Whelan MD [address] [place], [place] 1208895 Referring Pulmonary Disease 10/04/21 Nina Grigsby MD [address] [place] [address] Physician Hematology/Oncology 10/25/21 Patricia Miller, CONCERT MANAGER.[address] [place] [address] Nurse Practitioner Hematology/Oncology 10/25/21 Denita Rai, KERRY [address] [facility] [place] [address] Specialty Flash Drier Operator Hematology/Oncology 10/25/21 Tree Care Foreman Relationship Specialty Start Date End Date Christina Azul MD [address] [place] [address] PCP - General Family Practice 07/03/21 Sofie Diana MD [address] [place] [address] Primary Staff Physician Cardiology 07/03/21 Verito Whelan MD [address] [place] [address] Referring Pulmonary Disease 10/04/21 Nina Grigsby MD [address] [facility] [place] [address] Physician Hematology/Oncology 10/25/21 Patricia Miller, CONCERT MANAGER.[address] [place] [address] Nurse Practitioner Hematology/Oncology 10/25/21 Denita Rai, KERRY [address] [place] [place] [address] Specialty Flash Drier Operator Hematology/Oncology 10/25/21 Tree Care Foreman Relationship Specialty Start Date End Date Christina Azul MD [address] [place] [address] PCP - General Family Medicine 07/03/21 Sofie Diana MD [address] [place] [address] Primary Staff Physician Cardiology 07/03/21 Verito Whelan MD [address] [place] [address] Referring Pulmonary Disease 10/04/21 Nina Grigsby MD [address] [facility] [place] [address] Physician Hematology/Oncology 10/25/21 Patricia Miller, OZZIE.TYPEWRITER TESTER [address] [facility] [place] [address] Nurse Practitioner Hematology/Oncology 10/25/21 Denita Rai, RN [address] [facility] [place] [address] Specialty Flash Drier Operator Hematology/Oncology 10/25/21 Tree Care Foreman Relationship Specialty Start Date End Date Christina Azul MD [address] [place] [address] PCP - General Family Medicine 07/03/21 Sofie Diana MD [address] [place] [address] Primary Staff Physician Cardiology 07/03/21 Verito Whelan MD [address] [place] [address] Referring Pulmonary Disease 10/04/21 Nina Grigsby MD [address] [facility] [place] [address] Physician Hematology/Oncology 10/25/21 Patricia Miller, CONCERT MANAGER.TYPEWRITER TESTER [address] [facility] [place] [address] Nurse Practitioner Hematology/Oncology 10/25/21 Denita Rai, RN [address] [facility] [place] [address] Specialty Flash Drier Operator Hematology/Oncology 10/25/21 Tree Care Foreman Relationship Specialty Start Date End Date Christina Azul MD [address] [place] [place] [address] PCP - General Family Medicine 07/03/21 Sofie Diana MD [address] [place] [address] Primary Staff Physician Cardiology 07/03/21 Verito Whelan MD [address] [place] [address] Referring Pulmonary Disease 10/04/21 Nina Grigsby MD [address] [facility] [place] [address] Physician Hematology/Oncology 10/25/21 Patricia Miller, CONCERT MANAGER.TYPEWRITER TESTER [address] [facility] [place] [address] Nurse Practitioner Hematology/Oncology 10/25/21 Denita Rai, KERRY [address] [facility] [place] [address] Specialty Flash Drier Operator Hematology/Oncology 10/25/21 Tree Care Foreman Relationship Specialty Start Date End Date Christina Azul MD [address] [place] [address] PCP - General Family Medicine 07/03/21 Sofie Diana MD [address] [place] [address] Primary Staff Physician Cardiology 07/03/21 Verito Whelan MD [address] [place] [address] Referring Pulmonary Disease 10/04/21 Nina Grigsby MD [address] [facility] [place] [address] Physician Hematology/Oncology 10/25/21 Patricia Miller, CONCERT MANAGER.TYPEWRITER TESTER [address] [facility] [place] [address] Nurse Practitioner Hematology/Oncology 10/25/21 Denita Rai, KERRY [address] [facility] [place] [address] Specialty Flash Drier Operator Hematology/Oncology 10/25/21 Tree Care Foreman Relationship Specialty Start Date End Date Christina Azul MD [address] [place] [address] PCP - General Family Medicine 07/03/21 Sofie Diana MD [address] [place] [address] Primary Staff Physician Cardiology 07/03/21 Verito Whelan MD [address] [place] [address] Referring Pulmonary Disease 10/04/21 Nina Grigsby MD [address] [place] [place] [address] Physician Hematology/Oncology 10/25/21 Patricia Miller, CONCERT MANAGER.TYPEWRITER TESTER [address] [facility] [place] [address] Nurse Practitioner Hematology/Oncology 10/25/21 Denita Rai, KERRY [address] [facility] [place] [address] Specialty Flash Drier Operator Hematology/Oncology 10/25/21 Tree Care Foreman Relationship Specialty Start Date End Date Christina Azul MD [address] [place] [address] PCP - General Family Medicine 07/03/21 Sofie Diana MD [address] [place] [address] Primary Staff Physician Cardiology 07/03/21 Verito Whelan MD [address] [place] [address] Referring Pulmonary Disease 10/04/21 Nina Grigsby MD [address] [facility] [place] [address] Physician Hematology/Oncology 10/25/21 Patricia Miller APRN.TYPEWRITER TESTER [address] [facility] [place] [address] Nurse Practitioner Hematology/Oncology 10/25/21 Denita Rai, KERRY [address] [facility] [place] [address] Specialty Flash Drier Operator Hematology/Oncology 10/25/21 Tree Care Foreman Relationship Specialty Start Date End Date Christina Azul MD [address] [place] [address] PCP - General Family Medicine 07/03/21 Sofie Diana MD [address] [place] [address] Primary Staff Physician Cardiology 07/03/21 Verito Whelan MD [address] [place] [address] Referring Pulmonary Disease 10/04/21 Nina Grigsby MD [address] [place] [place] [address] Physician Hematology/Oncology 10/25/21 Patricia Miller, CONCERT MANAGER.TYPEWRITER TESTER [address] [facility] [place] [address] Nurse Practitioner Hematology/Oncology 10/25/21 Denita Rai, KERRY [address] [facility] [place] [address] Specialty Flash Drier Operator Hematology/Oncology 10/25/21 Tree Care Foreman Relationship Specialty Start Date End Date Christina Azul MD [address] [place] [address] PCP - General Family Medicine 07/03/21 Sofie Diana MD [address] [place] [address] Primary Staff Physician Cardiology 07/03/21 Verito Whelan MD [address] [place] [address] Referring Pulmonary Disease 10/04/21 Nina Grigsby MD [address] [place] [place] [address] Physician Hematology/Oncology 10/25/21 Patricia Miller, CONCERT MANAGER.TYPEWRITER TESTER [address] [facility] [place] [address] Nurse Practitioner Hematology/Oncology 10/25/21 Denita Rai, KERRY [address] [facility] [place] [address] Specialty Flash Drier Operator Hematology/Oncology 10/25/21 Tree Care Foreman Relationship Specialty Start Date End Date Christina Azul MD [address] [place] [id number] PCP - General Family Medicine 07/03/21 Sofie Diana MD [address] [place] [address] Primary Staff Physician Cardiology 07/03/21 Verito Whelan MD [address] [place] [address] Referring Pulmonary Disease 10/04/21 Nina Grigsby MD [address] [place] [address] [place] [address] Physician Hematology/Oncology 10/25/21 Patricia Miller, CONCERT MANAGER.TYPEWRITER TESTER [address] [facility] [place] [address] Nurse Practitioner Hematology/Oncology 10/25/21 Denita Rai, RN [address] [place] [address] [place] [address] Specialty Flash Drier Operator Hematology/Oncology 10/25/21 Tree Care Foreman Relationship Specialty Start Date End Date Christina Azul MD [address] [place] [id number] PCP - General Family Medicine 07/03/21 Sofie Diana MD [address] [place] [address] Primary Staff Physician Cardiology 07/03/21 Verito Whelan MD [address] [place] [address] Referring Pulmonary Disease 10/04/21 Nina Grigsby MD [address] [place] [address] [place] [address] Physician Hematology/Oncology 10/25/21 Patricia Miller, CONCERT MANAGER.[address] [place] [address] Nurse Practitioner Hematology/Oncology 10/25/21 Denita Rai, KERRY [address] [place] [address] [place] [address] Specialty Flash Drier Operator Hematology/Oncology 10/25/21 Tree Care Foreman Relationship Specialty Start Date End Date Christina Azul MD [address] [place] [address] PCP - General Family Medicine 07/03/21 Sofie Diana MD [address] [place] [address] Primary Staff Physician Cardiology 07/03/21 Verito Whelan MD [address] [place] [address] Referring Pulmonary Disease 10/04/21 Nina Grigsby MD [address] [facility] [place] [address] Physician Hematology/Oncology 10/25/21 Patricia Miller, CONCERT MANAGER.[address] [place] [address] Nurse Practitioner Hematology/Oncology 10/25/21 Denita Rai, KERRY [address] [place] [address] [place] [address] Specialty Flash Drier Operator Hematology/Oncology 10/25/21 Tree Care Foreman Relationship Specialty Start Date End Date Christina Azul MD [address] [place] [address] PCP - General Family Medicine 07/03/21 Sofie Diana MD [address] [place] [address] Primary Staff Physician Cardiology 07/03/21 Verito Whelan MD [address] [place], [place] [id number] Referring Pulmonary Disease 10/04/21 Nina Grigsby MD [address] [place] [address] Physician Hematology/Oncology 10/25/21 Patricia Miller, CONCERT MANAGER.TYPEWRITER TESTER [address] [facility] [place] [address] Nurse Practitioner Hematology/Oncology 10/25/21 Denita Rai, KERRY [address] [facility] [place] [address] Specialty Flash Drier Operator Hematology/Oncology 10/25/21 Tree Care Foreman Relationship Specialty Start Date End Date Christina Azul MD [address] [place] [place] [address] PCP - General Family Medicine 07/03/21 Sofie Diana MD [address] [place] [address] Primary Staff Physician Cardiology 07/03/21 Verito Whelan MD [address] [place] [address] Referring Pulmonary Disease 10/04/21 Nina Grigsby MD [address] [facility] [place] [address] Physician Hematology/Oncology 10/25/21 Patricia Miller, CONCERT MANAGER.[address] [place] [address] Nurse Practitioner Hematology/Oncology 10/25/21 Denita Rai, KERRY [address] [place] [address] [place] [address] Specialty Flash Drier Operator Hematology/Oncology 10/25/21 Tree Care Foreman Relationship Specialty Start Date End Date Christina Azul MD [address] [place] [id number] PCP - General Family Medicine 07/03/21 Sofie Diana MD [address] [place], [place] [id number] Primary Staff Physician Cardiology 07/03/21 Verito Whelan MD [address] [place], [place] [id number] Referring Pulmonary Disease 10/04/21 Nina Grigsby MD [address] [facility] [place] [address] Physician Hematology/Oncology 10/25/21 Patricia Miller, CONCERT MANAGER.[address] [place] [address] Nurse Practitioner Hematology/Oncology 10/25/21 Denita Rai, RN [address] [place] [address] [place] [address] Specialty Flash Drier Operator Hematology/Oncology 10/25/21 Tree Care Foreman Relationship Specialty Start Date End Date Christina Azul MD [address] [place] [id number] PCP - General Family Medicine 07/03/21 Sofie Diana MD [address] [place] [address] Primary Staff Physician Cardiology 07/03/21 Verito Whelan MD [address] [place] [address] Referring Pulmonary Disease 10/04/21 Nina Grigsby MD [address] [place] [place] [address] Physician Hematology/Oncology 10/25/21 Patricia Miller, CONCERT MANAGER.TYPEWRITER TESTER [address] [place] [address] Nurse Practitioner Hematology/Oncology 10/25/21 Denita Rai, RN [address] [place] [address] [place] [address] Specialty Flash Drier Operator Hematology/Oncology 10/25/21 Tree Care Foreman Relationship Specialty Start Date End Date Christina Azul MD [address] [place] [address] PCP - General Family Medicine 07/03/21 Sofie Diana MD [address] [place] [address] Primary Staff Physician Cardiology 07/03/21 Verito Whelan MD [address] [place] [address] Referring Pulmonary Disease 10/04/21 Nina Grigsby MD [address] [place] [place] [address] Physician Hematology/Oncology 10/25/21 Patricia Miller, CONCERT MANAGER.TYPEWRITER TESTER [address] [facility] [place] [address] Nurse Practitioner Hematology/Oncology 10/25/21 Denita Rai, RN [address] [facility] [place] [address] Specialty Flash Drier Operator Hematology/Oncology 10/25/21 Tree Care Foreman Relationship Specialty Start Date End Date Christina Azul MD [address] [place] [address] PCP - General Family Medicine 07/03/21 Sofie Diana MD [address] [place] [address] Primary Staff Physician Cardiology 07/03/21 Verito Whelan MD [address] [place] [address] Referring Pulmonary Disease 10/04/21 Nina Grigsby MD [address] [facility] [place] [address] Physician Hematology/Oncology 10/25/21 Patricia Miller, CONCERT MANAGER.TYPEWRITER TESTER [address] [facility] [place] [address] Nurse Practitioner Hematology/Oncology 10/25/21 Denita Rai, KERRY [address] [facility] [place] [address] Specialty Flash Drier Operator Hematology/Oncology 10/25/21 Tree Care Foreman Relationship Specialty Start Date End Date Christina Azul MD [address] [place] [address] PCP - General Family Medicine 07/03/21 Sofie Diana MD [address] [place] [address] Primary Staff Physician Cardiology 07/03/21 Verito Whelan MD [address] [place] [address] Referring Pulmonary Disease 10/04/21 Nina Grigsby MD [address] [place] [place] [address] Physician Hematology/Oncology 10/25/21 Patricia Miller, CONCERT MANAGER.TYPEWRITER TESTER [address] [place] [address] Nurse Practitioner Hematology/Oncology 10/25/21 Denita Rai, KERRY [address] [place] [place] [address] Specialty Flash Drier Operator Hematology/Oncology 10/25/21 Tree Care Foreman Relationship Specialty Start Date End Date Christina Azul MD [address] [place] [address] PCP - General Family Medicine 07/03/21 Sofie Diana MD [address] [place] [address] Primary Staff Physician Cardiology 07/03/21 Verito Whelan MD [address] [place] [address] Referring Pulmonary Disease 10/04/21 Nina Grigsby MD [address] [place] [place] [address] Physician Hematology/Oncology 10/25/21 Patricia Miller, CONCERT MANAGER.TYPEWRITER TESTER [address] [place] [address] Nurse Practitioner Hematology/Oncology 10/25/21 Denita Rai, KERRY [address] [place] [place] [address] Specialty Flash Drier Operator Hematology/Oncology 10/25/21 Tree Care Foreman Relationship Specialty Start Date End Date Christina Azul MD [address] [place] [place] [address] PCP - General Family Medicine 07/03/21 Sofie Diana MD [address] [place] [address] Primary Staff Physician Cardiology 07/03/21 Verito Whelan MD [address] [place] [address] Referring Pulmonary Disease 10/04/21 Nina Grigsby MD [address] [facility] [place] [address] Physician Hematology/Oncology 10/25/21 Patricia Miller APRN.TYPEWRITER TESTER [address] [facility] [place] [place] [address] Nurse Practitioner Hematology/Oncology 10/25/21 Denita Rai, KERRY [address] [facility] [place] [address] Specialty Flash Drier Operator Hematology/Oncology 10/25/21 Tree Care Foreman Relationship Specialty Start Date End Date Christina Azul MD [address] [place] [place] [address] PCP - General Family Medicine 07/03/21 Sofie Diana MD [address] [place] [address] Primary Staff Physician Cardiology 07/03/21 Verito Whelan MD [address] [place] [address] Referring Pulmonary Disease 10/04/21 Nina Grigsby MD [address] [facility] [place] [address] Physician Hematology/Oncology 10/25/21 Patricia Miller, CONCERT MANAGER.TYPEWRITER TESTER [address] [facility] [place] [place] [address] Nurse Practitioner Hematology/Oncology 10/25/21 Denita Rai, RN [address] [place] [address] [place] [address] Specialty Flash Drier Operator Hematology/Oncology 10/25/21 Tree Care Foreman Relationship Specialty Start Date End Date Christina Azul MD [address] [place] [address] PCP - General Family Medicine 07/03/21 Sofie Diana MD [address] [place] [address] Primary Staff Physician Cardiology 07/03/21 Verito Whelan MD [address] [place] [address] Referring Pulmonary Disease 10/04/21 Nina Grigsby MD [address] [facility] [place] [address] Physician Hematology/Oncology 10/25/21 Patricia Miller, CONCERT MANAGER.[facility] [address] [facility] [place] [address] Nurse Practitioner Hematology/Oncology 10/25/21 Denita Rai, KERRY [address] [facility] [place] [address] Specialty Flash Drier Operator Hematology/Oncology 10/25/21 Tree Care Foreman Relationship Specialty Start Date End Date Christina Azul MD [address] [place] [address] PCP - General Family Medicine 07/03/21 Sofie Diana MD [address] [place] [address] Primary Staff Physician Cardiology 07/03/21 Verito Whelan MD [address] [place] [address] Referring Pulmonary Disease 10/04/21 Nina Grigsby MD [address] [facility] [place] [address] Physician Hematology/Oncology 10/25/21 Patricia Miller, CONCERT MANAGER.TYPEWRITER TESTER [address] [facility] [place] [place] [address] Nurse Practitioner Hematology/Oncology 10/25/21 Denita Rai, KERRY [address] [place] [address] [place] [address] Specialty Flash Drier Operator Hematology/Oncology 10/25/21 Tree Care Foreman Relationship Specialty Start Date End Date Christina Azul MD [address] [place] [address] PCP - General Family Medicine 07/03/21 Sofie Diana MD [address] [place] [address] Primary Staff Physician Cardiology 07/03/21 Verito Wehlan MD [address] [place] [address] Referring Pulmonary Disease 10/04/21 Nina Grigsby MD [address] [facility] [place] [address] Physician Hematology/Oncology 10/25/21 Patricia Miller, CONCERT MANAGER.TYPEWRITER TESTER [address] [place] [address] [place] [address] Nurse Practitioner Hematology/Oncology 10/25/21 Denita Rai, KERRY [address] [facility] [place] [place] [address] Specialty Flash Drier Operator Hematology/Oncology 10/25/21 Tree Care Foreman Relationship Specialty Start Date End Date Christina Azul MD [address] [place] [address] PCP - General Family Medicine 07/03/21 Sofie Diana MD [address] [place] [address] Primary Staff Physician Cardiology 07/03/21 Verito Whelan MD [address] [place], [place] 3892495 Referring Pulmonary Disease 10/04/21 Nina Grigsby MD [address] [facility] [place] [address] Physician Hematology/Oncology 10/25/21 Patricia Miller, OZZIE.TYPEWRITER TESTER [address] [facility] [place] [place] [address] Nurse Practitioner Hematology/Oncology 10/25/21 Denita Rai, KERRY [address] [place] [address] [place] [address] Specialty Flash Drier Operator Hematology/Oncology 10/25/21 Tree Care Foreman Relationship Specialty Start Date End Date Christina Azul MD [address] [place] [address] PCP - General Family Medicine 07/03/21 Sofie Diana MD [address] [place] [address] Primary Staff Physician Cardiology 07/03/21 Verito Whelan MD [address] [place] [address] Referring Pulmonary Disease 10/04/21 Nina Grigsby MD [address] [place] [place] [address] Physician Hematology/Oncology 10/25/21 Patricia Miller, CONCERT MANAGER.TYPEWRITER TESTER [address] [facility] [place] [place] [address] Nurse Practitioner Hematology/Oncology 10/25/21 Denita Rai, KERRY [address] [place] [address] [place] [address] Specialty Flash Drier Operator Hematology/Oncology 10/25/21 Tree Care Foreman Relationship Specialty Start Date End Date Christina Azul MD [address] [place] [address] PCP - General Family Medicine 07/03/21 Sofie Diana MD [address] [place] [address] Primary Staff Physician Cardiology 07/03/21 Verito Whelan MD [address] [place] [address] Referring Pulmonary Disease 10/04/21 Nina Grigsby MD [address] [place] [place] [address] Physician Hematology/Oncology 10/25/21 Patricia Miller, CONCERT MANAGER.TYPEWRITER TESTER [address] [facility] [place] [place] [address] Nurse Practitioner Hematology/Oncology 10/25/21 Denita Rai, KERRY [address] [place] [place] [address] Specialty Flash Drier Operator Hematology/Oncology 10/25/21 Team Status: Active Member Role Status Dates Christina Azul MD Primary Care Provider Active Team Status: Inactive Member Role Status Dates Christina Azul MD Primary Care Provider Active Sapna Angulo APRN Emergency Provider Active Tree Care Foreman Relationship Specialty Start Date End Date Christina Azul MD [address] [place], [place] [id number] PCP - General Family Medicine 07/03/21 Sofie Diana MD [address] [place], [place] 8437695 Primary Staff Physician Cardiology 07/03/21 Verito Whelan MD [address] [place], [place] 8536395 Referring Pulmonary Disease 10/04/21 Nina Grigsby MD [address] [facility] [address] [place] [id number] Physician Hematology/Oncology 10/25/21 Patricia Miller APRN.TYPEWRITER TESTER [address] [facility] [address] [place] [id number] Nurse Practitioner Hematology/Oncology 10/25/21 Denita Rai, KERRY [address] [facility] [address] [place] [id number] Specialty Flash Drier Operator Hematology/Oncology 10/25/21 Tree Care Foreman Relationship Specialty Start Date End Date Christina Azul MD [address] [place] [address] PCP - General Family Medicine 07/03/21 Sofie Diana MD [address] [place], [place] [id number] Primary Staff Physician Cardiology 07/03/21 Verito Whelan MD [address] [place] [address] Referring Pulmonary Disease 10/04/21 Nina Grigsby MD [address] [place] [place] [address] Physician Hematology/Oncology 10/25/21 Patricia Miller, CONCERT MANAGER.TYPEWRITER TESTER [address] [place] [place] [address] Nurse Practitioner Hematology/Oncology 10/25/21 Denita Rai, KERRY [address] [place] [address] [place] [address] Specialty Flash Drier Operator Hematology/Oncology 10/25/21 Minna Madrigal LSW Library Media Technician 01/08/23 Tree Care Foreman Relationship Specialty Start Date End Date Christina Azul MD [address] [place] [address] PCP - General Family Medicine 07/03/21 Sofie Diana MD [address] [place] [address] Primary Staff Physician Cardiology 07/03/21 Verito Whelan MD [address] [place] [address] Referring Pulmonary Disease 10/04/21 Nina Grigsby MD [address] [place] [place] [address] Physician Hematology/Oncology 10/25/21 Patricia Miller, CONCERT MANAGER.TYPEWRITER TESTER [address] [facility] [place] [address] Nurse Practitioner Hematology/Oncology 10/25/21 Denita Rai, KERRY [address] [facility] [place] [address] Specialty Flash Drier Operator Hematology/Oncology 10/25/21 Minna Madrigal LSW Library Media Technician 01/08/23 Tree Care Foreman Relationship Specialty Start Date End Date Christina Azul MD [address] [place] [address] PCP - General Family Medicine 07/03/21 Sofie Diana MD [address] [place] [address] Primary Staff Physician Cardiology 07/03/21 Verito Whelan MD [address] [place] [address] Referring Pulmonary Disease 10/04/21 Nina Grigsby MD [address] [facility] [place] [address] Physician Hematology/Oncology 10/25/21 Patricia Miller, CONCERT MANAGER.TYPEWRITER TESTER [address] [facility] [place] [place] [address] Nurse Practitioner Hematology/Oncology 10/25/21 Denita Rai RN [address] [place] [address] [place] [address] Specialty Flash Drier Operator Hematology/Oncology 10/25/21 Minna Madrigal LSW Library Media Technician 01/08/23 Tree Care Foreman Relationship Specialty Start Date End Date Christina Azul MD [address] [place] [address] PCP - General Family Medicine 07/03/21 Sofei Diana MD [address] [place] [address] Primary Staff Physician Cardiology 07/03/21 Verito Whelan MD [address] [place], [place] [id number] Referring Pulmonary Disease 10/04/21 Nina Grigsby MD [address] [place] [address] [place] [address] Physician Hematology/Oncology 10/25/21 Patricia Miller, CONCERT MANAGER.TYPEWRITER TESTER [address] [facility] [place] [place] [address] Nurse Practitioner Hematology/Oncology 10/25/21 Denita Rai, KERRY [address] [place] [address] [place] [address] Specialty Flash Drier Operator Hematology/Oncology 10/25/21 Minna Madrigal LSW Library Media Technician 01/08/23 Tree Care Foreman Relationship Specialty Start Date End Date Christina Azul MD [address] [place] [address] PCP - General Family Medicine 07/03/21 Sofie Diana MD [address] [place] [address] Primary Staff Physician Cardiology 07/03/21 Verito Whelan MD [address] [place] [address] Referring Pulmonary Disease 10/04/21 Nina Grigsby MD [address] [place] [address] [place] [address] Physician Hematology/Oncology 10/25/21 Patricia Miller, CONCERT MANAGER.TYPEWRITER TESTER [address] [place] [address] [place] [address] Nurse Practitioner Hematology/Oncology 10/25/21 Denita Rai, KERRY [address] [facility] [place] [place] [address] Specialty Flash Drier Operator Hematology/Oncology 10/25/21 Minna Madrigal LSW Library Media Technician 01/08/23 Tree Care Foreman Relationship Specialty Start Date End Date Christina Azul MD [address] [place] [id number] PCP - General Family Medicine 07/03/21 Sofie Diana MD [address] [place] [id number] Primary Staff Physician Cardiology 07/03/21 Verito Whelan MD [address] [place] [id number] Referring Pulmonary Disease 10/04/21 Nina Grigsby MD [address] [place] [address] [place] [address] Physician Hematology/Oncology 10/25/21 Patricia Miller APRN.TYPEWRITER TESTER [address] [facility] [place] [place] [address] Nurse Practitioner Hematology/Oncology 10/25/21 Denita Rai RN [address] [facility] [place] [address] Specialty Flash Drier Operator Hematology/Oncology 10/25/21 Minna Madrigal LSW Library Media Technician 01/08/23 Tree Care Foreman Relationship Specialty Start Date End Date Christina Azul MD [address] [place] [id number] PCP - General Family Medicine 07/03/21 Soife Diana MD [address] [place] [address] Primary Staff Physician Cardiology 07/03/21 Verito Whelan MD [address] [place] [address] Referring Pulmonary Disease 10/04/21 Nina Grigsby MD [address] [facility] [place] [address] Physician Hematology/Oncology 10/25/21 Patricia Miller APRN.TYPEWRITER TESTER [address] [facility] [place] [place] [address] Nurse Practitioner Hematology/Oncology 10/25/21 Denita Rai, KERRY [address] [facility] [place] [place] [address] Specialty Flash Drier Operator Hematology/Oncology 10/25/21 Minna Madrigal LSW Library Media Technician 01/08/23 Tree Care Foreman Relationship Specialty Start Date End Date Christina Azul MD [address] [place] [address] PCP - General Family Medicine 07/03/21 Sofie Diana MD [address] [place] [address] Primary Staff Physician Cardiology 07/03/21 Verito Whelan MD [address] [place] [address] Referring Pulmonary Disease 10/04/21 Nina Grigsby MD [address] [place] [place] [address] Physician Hematology/Oncology 10/25/21 Patricia Miller, CONCERT MANAGER.TYPEWRITER TESTER [address] [place] [place] [address] Nurse Practitioner Hematology/Oncology 10/25/21 Denita Rai, KERRY [address] [place] [place] [address] Specialty Flash Drier Operator Hematology/Oncology 10/25/21 Minna Madrigal LSW Library Media Technician 01/08/23 Tree Care Foreman Relationship Specialty Start Date End Date Christina Azul MD [address] [place] [address] PCP - General Family Medicine 07/03/21 Sofie Diana MD [address] [place] [address] Primary Staff Physician Cardiology 07/03/21 Verito Whelan MD [address] [place] [address] Referring Pulmonary Disease 10/04/21 Nina Grigsby MD [address] [place] [place] [address] Physician Hematology/Oncology 10/25/21 Patricia Miller, CONCERT MANAGER.TYPEWRITER TESTER [address] [facility] [place] [address] Nurse Practitioner Hematology/Oncology 10/25/21 Denita Rai, KERRY [address] [facility] [place] [address] Specialty Flash Drier Operator Hematology/Oncology 10/25/21 Minna Madrigal LSW Library Media Technician 01/08/23 Tree Care Foreman Relationship Specialty Start Date End Date Christina Azul MD [address] [place] [address] PCP - General Family Medicine 07/03/21 Sofie Diana MD [address] [place] [place], [place] [id number] Primary Staff Physician Cardiology 07/03/21 Verito Whelan MD [address] [place] [address] Referring Pulmonary Disease 10/04/21 Nina Grigsby MD [address] [place] [address] [place] [address] Physician Hematology/Oncology 10/25/21 Patricia Miller APRN.TYPEWRITER TESTER [address] [place] [address] [place] [address] Nurse Practitioner Hematology/Oncology 10/25/21 Denita Rai, KERRY [address] [facility] [place] [address] Specialty Flash Drier Operator Hematology/Oncology 10/25/21 Minna Madrigal LSW Library Media Technician 01/08/23 Tree Care Foreman Relationship Specialty Start Date End Date Christina Azul MD [address] [place] [address] PCP - General Family Medicine 07/03/21 Sofie Diana MD [address] [place] [address] Primary Staff Physician Cardiology 07/03/21 Verito Whelan MD [address] [place] [address] Referring Pulmonary Disease 10/04/21 Nina Grigsby MD [address] [place] [address] [address] [place] [phone] Physician Hematology/Oncology 10/25/21 Patricia Miller APRN.[facility] [address] [place] [address] [address] [place] [phone] Nurse Practitioner Hematology/Oncology 10/25/21 Denita Rai, KERRY [address] [place] [address] [address] [place] [phone] Specialty Flash Drier Operator Hematology/Oncology 10/25/21 Minna Madrigal LSW Library Media Technician 01/08/23 Tree Care Foreman Relationship Specialty Start Date End Date Christina Azul MD [address] [place] [id number] PCP - General Family Medicine 07/03/21 Sofie Diana MD [address] [place] [address] Primary Staff Physician Cardiology 07/03/21 Verito Whelan MD [address] [place] [phone] Referring Pulmonary Disease 10/04/21 Nina Grigsby MD [address] [place] [address] [place] [address] Physician Hematology/Oncology 10/25/21 Patricia Miller, CONCERT MANAGER.TYPEWRITER TESTER [address] [place] [address] [place] [address] Nurse Practitioner Hematology/Oncology 10/25/21 Denita Rai, RN [address] [facility] [place] [address] Specialty Flash Drier Operator Hematology/Oncology 10/25/21 Minna Madrigal LSW Library Media Technician 01/08/23 Tree Care Foreman Relationship Specialty Start Date End Date Christina Azul MD [address] [place] [address] PCP - General Family Medicine 07/03/21 Sofie Diana MD [address] [place] [address] Primary Staff Physician Cardiology 07/03/21 Verito Whelan MD [address] [place] [address] Referring Pulmonary Disease 10/04/21 Nina Grigsby MD [address] [place] [address] [place] [address] Physician Hematology/Oncology 10/25/21 Patricia Miller, CONCERT MANAGER.TYPEWRITER TESTER [address] [facility] [place] [address] Nurse Practitioner Hematology/Oncology 10/25/21 Denita Rai, RN [address] [place] [place] [address] Specialty Flash Drier Operator Hematology/Oncology 10/25/21 Minna Madrigal LSW Library Media Technician 01/08/23 Tree Care Foreman Relationship Specialty Start Date End Date Christina Azul MD [address] [place] [address] PCP - General Family Medicine 07/03/21 Sofie Diana MD [address] [place], [place] [id number] Primary Staff Physician Cardiology 07/03/21 Verito Whelan MD [address] [place], [place] [id number] Referring Pulmonary Disease 10/04/21 Nina Grigsby MD [address] [facility] [place] [address] Physician Hematology/Oncology 10/25/21 Patricia Miller APRN.TYPEWRITER TESTER [address] [facility] [place] [address] Nurse Practitioner Hematology/Oncology 10/25/21 Denita Rai, KERRY [address] [facility] [place] [address] Specialty Flash Drier Operator Hematology/Oncology 10/25/21 Minna Madrigal LSW Library Media Technician 01/08/23 Tree Care Foreman Relationship Specialty Start Date End Date Christina Azul MD [address] [place] [address] PCP - General Family Medicine 07/03/21 Sofie Diana MD [address] [place], [place] [id number] Primary Staff Physician Cardiology 07/03/21 Verito Whelan MD [address] [place] [place], [place] [phone] Referring Pulmonary Disease 10/04/21 Nina Grigsby MD [address] [place] [place] [address] Physician Hematology/Oncology 10/25/21 Patricia Miller, CONCERT MANAGER.TYPEWRITER TESTER [address] [place] [place] [address] Nurse Practitioner Hematology/Oncology 10/25/21 Denita Rai, KERRY [address] [facility] [address] [place], [place] [id number] Specialty Flash Drier Operator Hematology/Oncology 10/25/21 Minna Madrigal LSW Library Media Technician 01/08/23 Tree Care Foreman Relationship Specialty Start Date End Date Christina Azul MD [address] [place] [address] PCP - General Family Medicine 07/03/21 Sofie Diana MD [address] [place] [address] Primary Staff Physician Cardiology 07/03/21 Verito Whelan MD [address] [place] [address] Referring Pulmonary Disease 10/04/21 Nina Grigsby MD [address] [place] [address] Physician Hematology/Oncology 10/25/21 Patricia Miller, CONCERT MANAGER.TYPEWRITER TESTER [address] [place] [address] [place] [address] Nurse Practitioner Hematology/Oncology 10/25/21 Denita Rai, KERRY [address] [place] [address] [place] [address] Specialty Flash Drier Operator Hematology/Oncology 10/25/21 Minna Madrigal LSW Library Media Technician 01/08/23 Tree Care Foreman Relationship Specialty Start Date End Date Christina Azul MD [address] [place] [place] [address] PCP - General Family Medicine 07/03/21 Sofie Diana MD [address] [place] [address] Primary Staff Physician Cardiology 07/03/21 Verito Whelan MD [address] [place] [address] Referring Pulmonary Disease 10/04/21 Nina Grigsby MD [address] [place] [address] [place] [address] Physician Hematology/Oncology 10/25/21 Patricia Miller APRN.TYPEWRITER TESTER [address] [place] [address] [place] [address] Nurse Practitioner Hematology/Oncology 10/25/21 Denita Rai, KERRY [address] [facility] [place] [address] Specialty Flash Drier Operator Hematology/Oncology 10/25/21 Minna Madrigal LSW Library Media Technician 01/08/23 Tree Care Foreman Relationship Specialty Start Date End Date Christina Azul MD [address] [place] [id number] PCP - General Family Medicine 07/03/21 Sofie Diana MD [address] [place], [place] [id number] Primary Staff Physician Cardiology 07/03/21 Verito Whelan MD [address] [place], [place] 6004695 Referring Pulmonary Disease 10/04/21 Nina Grigsby MD [address] [place] [address] [address] [place] [id number] Physician Hematology/Oncology 10/25/21 Patricia Miller APRN.TYPEWRITER TESTER [address] [place] [address] [address] [place] [id number] Nurse Practitioner Hematology/Oncology 10/25/21 Denita Rai, KERRY [address] [place] [address] [place] [address] Specialty Flash Drier Operator Hematology/Oncology 10/25/21 Minna Madrigal LSW Library Media Technician 01/08/23 Tree Care Foreman Relationship Specialty Start Date End Date Christina Azul MD [address] [place] [address] PCP - General Family Medicine 07/03/21 Sofie Diana MD [address] [place], [place] [id number] Primary Staff Physician Cardiology 07/03/21 Verito Whelan MD [address] [place] [address] Referring Pulmonary Disease 10/04/21 Nina Grigsby MD [address] [place] [address] [place] [address] Physician Hematology/Oncology 10/25/21 Patricia Miller, CONCERT MANAGER.TYPEWRITER TESTER [address] [place] [address] [place] [address] Nurse Practitioner Hematology/Oncology 10/25/21 Denita Rai, KERRY [address] [facility] [place] [address] Specialty Flash Drier Operator Hematology/Oncology 10/25/21 Minna Madrigal LSW Library Media Technician 01/08/23 Tree Care Foreman Relationship Specialty Start Date End Date Christina Azul MD [address] [place] [place] [address] PCP - General Family Medicine 07/03/21 Sofie Diana MD [address] [place], [place] [id number] Primary Staff Physician Cardiology 07/03/21 Verito Whelan MD [address] [place] [id number] Referring Pulmonary Disease 10/04/21 Nina Grigsby MD [address] [place] [address] [place] [address] Physician Hematology/Oncology 10/25/21 Patricia Miller, CONCERT MANAGER.TYPEWRITER TESTER [address] [facility] [place] [address] Nurse Practitioner Hematology/Oncology 10/25/21 Denita Rai, KERRY [address] [facility] [place] [address] Specialty Flash Drier Operator Hematology/Oncology 10/25/21 Minna Madrigal LSW Library Media Technician 01/08/23 Tree Care Foreman Relationship Specialty Start Date End Date Christina Azul MD [address] [place] [place] [address] PCP - General Family Medicine 07/03/21 Sofie Diana MD [address] [place], [place] 2931095 Primary Staff Physician Cardiology 07/03/21 Verito Whelan MD [address] [place], [place] [phone] Referring Pulmonary Disease 10/04/21 Nina Grigsby MD [address] [facility] [place] [address] Physician Hematology/Oncology 10/25/21 Patricia Miller APRN.TYPEWRITER TESTER [address] [facility] [place] [place] [address] Nurse Practitioner Hematology/Oncology 10/25/21 Denita Rai, KERRY [address] [facility] [place] [address] Specialty Flash Drier Operator Hematology/Oncology 10/25/21 Minna Madrigal LSW Library Media Technician 01/08/23 Tree Care Foreman Relationship Specialty Start Date End Date Christina Azul MD [address] [place] [place] [address] PCP - General Family Medicine 07/03/21 Sofie Diana MD [address] [place], [place] [phone] Primary Staff Physician Cardiology 07/03/21 Verito Whelan MD [address] [place], [place] 2888995 Referring Pulmonary Disease 10/04/21 Nina Grigsby MD [address] [facility] [place] [address] Physician Hematology/Oncology 10/25/21 Patricia Miller APRN.TYPEWRITER TESTER [address] [facility] [place] [place] [address] Nurse Practitioner Hematology/Oncology 10/25/21 Denita Rai, KERRY [address] [facility] [place] [address] Specialty Flash Drier Operator Hematology/Oncology 10/25/21 Minna Madrigal LSW Library Media Technician 01/08/23 Tree Care Foreman Relationship Specialty Start Date End Date Christina Azul MD [address] [place] [address] PCP - General Family Medicine 07/03/21 Sofie Diana MD [address] [place] [address] Primary Staff Physician Cardiology 07/03/21 Verito Whelan MD [address] [place], [place] [phone] Referring Pulmonary Disease 10/04/21 Nina Grigsby MD [address] [place] [address] [place] [address] Physician Hematology/Oncology 10/25/21 Patricia Miller APRN.TYPEWRITER TESTER [address] [place] [address] [place] [address] Nurse Practitioner Hematology/Oncology 10/25/21 Denita Rai, KERRY [address] [facility] [place] [address] Specialty Flash Drier Operator Hematology/Oncology 10/25/21 Minna Madrigal LSW Library Media Technician 01/08/23 Tree Care Foreman Relationship Specialty Start Date End Date Christina Azul MD [address] [place] [address] PCP - General Family Medicine 07/03/21 Sofie Diana MD [address] [place] [address] Primary Staff Physician Cardiology 07/03/21 Verito Whelan MD [address] [place] [address] Referring Pulmonary Disease 10/04/21 Nina Grigsby MD [address] [place] [address] [place] [address] Physician Hematology/Oncology 10/25/21 Patricia Miller, CONCERT MANAGER.TYPEWRITER TESTER [address] [place] [address] [place] [address] Nurse Practitioner Hematology/Oncology 10/25/21 Denita Rai, KERRY [address] [place] [address] Specialty Flash Drier Operator Hematology/Oncology 10/25/21 Minna Madrigal LSW Library Media Technician 01/08/23 Tree Care Foreman Relationship Specialty Start Date End Date Christina Azul MD [address] [place] [phone] PCP - General Family Medicine 07/03/21 Sofie Diana MD [address] [place], [place] 3865695 Primary Staff Physician Cardiology 07/03/21 Verito Whelan MD [address] [place], [place] [phone] Referring Pulmonary Disease 10/04/21 Nina Grigsby MD [address] [facility] [address] [place] [phone] Physician Hematology/Oncology 10/25/21 Patricia Miller APRN.TYPEWRITER TESTER [address] [facility] [address] [place] [phone] Nurse Practitioner Hematology/Oncology 10/25/21 Denita Rai, KERRY [address] [facility] [address] [place] [phone] Specialty Flash Drier Operator Hematology/Oncology 10/25/21 Minna Madrigal LSW Library Media Technician 01/08/23 Tree Care Foreman Relationship Specialty Start Date End Date Christina Azul MD [address] [place] [id number] PCP - General Family Medicine 07/03/21 Sofie Diana MD [address] [place] [address] Primary Staff Physician Cardiology 07/03/21 Verito Whelan MD [address] [place] [address] Referring Pulmonary Disease 10/04/21 Nina Grigsby MD [address] [place] [address] [place] [address] Physician Hematology/Oncology 10/25/21 Patricia Miller APRN.TYPEWRITER TESTER [address] [place] [address] [place] [address] Nurse Practitioner Hematology/Oncology 10/25/21 Denita Rai, KERRY [address] [facility] [place] [place] [address] Specialty Flash Drier Operator Hematology/Oncology 10/25/21 Minna Madrigal LSW Library Media Technician 01/08/23 Tree Care Foreman Relationship Specialty Start Date End Date Christina Azul MD [address] [place] [phone] PCP - General Family Medicine 07/03/21 Sofie Diana MD [address] [place] [address] Primary Staff Physician Cardiology 07/03/21 Verito Whelan MD [address] [place] [phone] Referring Pulmonary Disease 10/04/21 Nina Grigsby MD [address] [place] [address] [place] [address] Physician Hematology/Oncology 10/25/21 Patricia Miller, CONCERT MANAGER.TYPEWRITER TESTER [address] [place] [place] [address] Nurse Practitioner Hematology/Oncology 10/25/21 Denita Rai, RN [address] [facility] [place] [address] Specialty Flash Drier Operator Hematology/Oncology 10/25/21 Minna Madrigal LSW Library Media Technician 01/08/23 Tree Care Foreman Relationship Specialty Start Date End Date Christina Azul MD [address] [place] [address] PCP - General Family Medicine 07/03/21 Sofie Diana MD [address] [place], [place] 1332895 Primary Staff Physician Cardiology 07/03/21 Verito Whelan MD [address] [place], [place] [phone] Referring Pulmonary Disease 10/04/21 Nina Grigsby MD [address] [facility] [place] [address] Physician Hematology/Oncology 10/25/21 Patricia Miller, CONCERT MANAGER.TYPEWRITER TESTER [address] [facility] [place] [place] [address] Nurse Practitioner Hematology/Oncology 10/25/21 Denita Rai, RN [address] [facility] [place] [address] Specialty Flash Drier Operator Hematology/Oncology 10/25/21 Tree Care Foreman Relationship Specialty Start Date End Date Christina Azul MD [address] [place] [address] PCP - General Family Medicine 07/03/21 Sofie Diana MD [address] [place], [place] [phone] Primary Staff Physician Cardiology 07/03/21 Verito Whelan MD [address] [place], [place] [phone] Referring Pulmonary Disease 10/04/21 Nina Grigsby MD [address] [place] [address] [place] [address] Physician Hematology/Oncology 10/25/21 Patricia Miller, CONCERT MANAGER.TYPEWRITER TESTER [address] [place] [address] [place] [address] Nurse Practitioner Hematology/Oncology 10/25/21 Denita Rai, KERRY [address] [place] [address] [place] [address] Specialty Flash Drier Operator Hematology/Oncology 10/25/21 Minna Madrigal LSW Library Media Technician 01/08/23 Estella Fish, CONCERT MANAGER.TYPEWRITER TESTER [address] [place] [address] [place] [id number] HOSPICE & PALLIATIVE MEDICINE 05/22/23 Julieth Tapia, KERRY Specialty Flash Drier Operator HOSPICE & PALLIATIVE MEDICINE 05/22/23 Tree Care Foreman Relationship Specialty Start Date End Date Christina Azul MD [address] [place] [address] PCP - General Family Medicine 07/03/21 Sofie Diana MD [address] [place] [address] Primary Staff Physician Cardiology 07/03/21 Verito Whelan MD [address] [place], [place] [phone] Referring Pulmonary Disease 10/04/21 Nina Grigsby MD [address] [facility] [place] [address] Physician Hematology/Oncology 10/25/21 Patricia Miller, CONCERT MANAGER.TYPEWRITER TESTER [address] [facility] [place] [place] [address] Nurse Practitioner Hematology/Oncology 10/25/21 Denita Rai, KERRY [address] [facility] [place] [place] [address] Specialty Flash Drier Operator Hematology/Oncology 10/25/21 Minna Madrigal LSW Library Media Technician 01/08/23 Estella Fish, CONCERT MANAGER.TYPEWRITER TESTER [address] [facility] [place] [address] HOSPICE & PALLIATIVE MEDICINE 05/22/23 Julieth Tapia, KERRY Specialty Flash Drier Operator HOSPICE & PALLIATIVE MEDICINE 05/22/23 Tree Care Foreman Relationship Specialty Start Date End Date Christina Azul MD [address] [place] [address] PCP - General Family Medicine 07/03/21 Sofie Diana MD [address] [place] [address] Primary Staff Physician Cardiology 07/03/21 Verito Whelan MD [address] [place] [phone] Referring Pulmonary Disease 10/04/21 Nina Grigsby MD [address] [place] [address] [place] [address] Physician Hematology/Oncology 10/25/21 Patricia Miller, CONCERT MANAGER.TYPEWRITER TESTER [address] [place] [address] [place] [address] Nurse Practitioner Hematology/Oncology 10/25/21 Denita Rai, KERRY [address] [place] [address] [place] [address] Specialty Flash Drier Operator Hematology/Oncology 10/25/21 Minna Madrigal LSW Library Media Technician 01/08/23 Estella Fish, CONCERT MANAGER.TYPEWRITER TESTER [address] [place] [address] [place] [address] HOSPICE & PALLIATIVE MEDICINE 05/22/23 Julieth Tapia RN Specialty Flash Drier Operator HOSPICE & PALLIATIVE MEDICINE 05/22/23 Tree Care Foreman Relationship Specialty Start Date End Date Christina Azul MD [address] [place] [place] [address] PCP - General Family Medicine 07/03/21 Sofie Diana MD [address] [place] [address] Primary Staff Physician Cardiology 07/03/21 Verito Whelan MD [address] [place] [address] Referring Pulmonary Disease 10/04/21 Nina Grigsby MD [address] [place] [address] [place] [address] Physician Hematology/Oncology 10/25/21 Patricia Miller, CONCERT MANAGER.TYPEWRITER TESTER [address] [place] [address] [place] [address] Nurse Practitioner Hematology/Oncology 10/25/21 Denita Rai, KERRY [address] [place] [address] [place] [address] Specialty Flash Drier Operator Hematology/Oncology 10/25/21 Minna Madrigal LSW Library Media Technician 01/08/23 Estella Fish, CONCERT MANAGER.TYPEWRITER TESTER [address] [place] [address] [place] [address] HOSPICE & PALLIATIVE MEDICINE 05/22/23 Julieth Tapia RN Specialty Flash Drier Operator HOSPICE & PALLIATIVE MEDICINE 05/22/23 Tree Care Foreman Relationship Specialty Start Date End Date Christina Azul MD [address] [id number] PCP - General Family Medicine 07/03/21 Sofie Diana MD [address] [place] [address] Primary Staff Physician Cardiology 07/03/21 Verito W[place]an MD [address] [place] [address] Referring Pulmonary Disease 10/04/21 Nina Grigsby MD [address] [place] [address] [place] [address] Physician Hematology/Oncology 10/25/21 Patricia Miller, CONCERT MANAGER.TYPEWRITER TESTER [address] [place] [address] [place] [address] Nurse Practitioner Hematology/Oncology 10/25/21 Denita Rai, KERRY [address] [place] [address] [place] [address] Specialty Flash Drier Operator Hematology/Oncology 10/25/21 Minna Madrigal LSW Library Media Technician 01/08/23 Estella Fish, CONCERT MANAGER.TYPEWRITER TESTER [address] [place] [address] [place] [address] HOSPICE & PALLIATIVE MEDICINE 05/22/23 Julieth Tapia RN Specialty Flash Drier Operator HOSPICE & PALLIATIVE MEDICINE 05/22/23 Tree Care Foreman Relationship Specialty Start Date End Date Christina Azul MD [address] [place] [address] PCP - General Family Medicine 07/03/21 Sofie Diana MD [address] [place], [place] 2927695 Primary Staff Physician Cardiology 07/03/21 Verito Whelan MD [address] [place] [address] Referring Pulmonary Disease 10/04/21 Nina Grigsby MD [address] [place] [address] [place] [address] Physician Hematology/Oncology 10/25/21 Patricia Miller, CONCERT MANAGER.TYPEWRITER TESTER [address] [place] [address] [place] [address] Nurse Practitioner Hematology/Oncology 10/25/21 Denita Rai, RN [address] [place] [address] [place] [address] Specialty Flash Drier Operator Hematology/Oncology 10/25/21 Minna Madrigal LSW Library Media Technician 01/08/23 Estella Fish, CONCERT MANAGER.TYPEWRITER TESTER [address] [facility] [place] [address] HOSPICE & PALLIATIVE MEDICINE 05/22/23 Julieth Tapia RN Specialty Flash Drier Operator HOSPICE & PALLIATIVE MEDICINE 05/22/23 Tree Care Foreman Relationship Specialty Start Date End Date Christina Azul MD [address] [place] [address] PCP - General Family Medicine 07/03/21 Sofie Diana MD [address] [place] [address] Primary Staff Physician Cardiology 07/03/21 Verito Whelan MD [address] [place], [place] [phone] Referring Pulmonary Disease 10/04/21 Nina Grigsby MD [address] [place] [address] [place] [address] Physician Hematology/Oncology 10/25/21 Patricia Miller, CONCERT MANAGER.TYPEWRITER TESTER [address] [place] [address] [place] [address] Nurse Practitioner Hematology/Oncology 10/25/21 Deniat Rai, KERRY [address] [facility] [place] [place] [address] Specialty Flash Drier Operator Hematology/Oncology 10/25/21 Minna Madrigal LSW Library Media Technician 01/08/23 Estella Fish, CONCERT MANAGER.TYPEWRITER TESTER [address] [place] [address] [place] [address] HOSPICE & PALLIATIVE MEDICINE 05/22/23 Julieth Tapia RN Specialty Flash Drier Operator HOSPICE & PALLIATIVE MEDICINE 05/22/23 Tree Care Foreman Relationship Specialty Start Date End Date Christina Azul MD [address] [place] [address] PCP - General Family Medicine 07/03/21 Sofie Diana MD [address] [place] [phone] Primary Staff Physician Cardiology 07/03/21 Verito Whelan MD [address] [place] [phone] Referring Pulmonary Disease 10/04/21 Nina Grigsby MD [address] [place] [address] [place] [address] Physician Hematology/Oncology 10/25/21 Patricia Miller, CONCERT MANAGER.TYPEWRITER TESTER [address] [place] [address] [place] [address] Nurse Practitioner Hematology/Oncology 10/25/21 Denita Rai, KERRY [address] [facility] [place] [place] [address] Specialty Flash Drier Operator Hematology/Oncology 10/25/21 Minna Madrigal LSW Library Media Technician 01/08/23 Estella Fish, CONCERT MANAGER.TYPEWRITER TESTER [address] [facility] [place] [address] HOSPICE & PALLIATIVE MEDICINE 05/22/23 Julieth Tapia RN Specialty Flash Drier Operator HOSPICE & PALLIATIVE MEDICINE 05/22/23 Tree Care Foreman Relationship Specialty Start Date End Date Christina Azul MD [address] [place] [address] PCP - General Family Medicine 07/03/21 Sofie Diana MD [address] [place], [place] 8198095 Primary Staff Physician Cardiology 07/03/21 Verito Whelan MD [address] [place] [address] Referring Pulmonary Disease 10/04/21 Nina Grigsby MD [address] [place] [address] [place] [address] Physician Hematology/Oncology 10/25/21 Patricia Miller, CONCERT MANAGER.TYPEWRITER TESTER [address] [place] [address] [place] [address] Nurse Practitioner Hematology/Oncology 10/25/21 Denita Rai, KERRY [address] [place] [address] [place] [address] Specialty Flash Drier Operator Hematology/Oncology 10/25/21 Minna Madrigal LSW Library Media Technician 01/08/23 Estella Fish, CONCERT MANAGER.TYPEWRITER TESTER [address] [place] [address] [place] [address] HOSPICE & PALLIATIVE MEDICINE 05/22/23 Julieth Tapia, RN Specialty Flash Drier Operator HOSPICE & PALLIATIVE MEDICINE 05/22/23 Tree Care Foreman Relationship Specialty Start Date End Date Christina Azul MD [address] [place] [address] PCP - General Family Medicine 07/03/21 Sofie Diana MD [address] [place] [address] Primary Staff Physician Cardiology 07/03/21 Verito Whelan MD [address] [place] [address] Referring Pulmonary Disease 10/04/21 Nina Grigsby MD [address] [place] [address] [place] [address] Physician Hematology/Oncology 10/25/21 Patricia Miller, OZZIE.TYPEWRITER TESTER [address] [place] [address] [place] [address] Nurse Practitioner Hematology/Oncology 10/25/21 Denita Rai, KERRY [address] [place] [address] [place] [address] Specialty Flash Drier Operator Hematology/Oncology 10/25/21 Minna Madrigal LSW Library Media Technician 01/08/23 Estella Fish, CONCERT MANAGER.TYPEWRITER TESTER [address] [place] [address] [place] [address] HOSPICE & PALLIATIVE MEDICINE 05/22/23 Julieth Tapia, RN Specialty Flash Drier Operator HOSPICE & PALLIATIVE MEDICINE 05/22/23 Tree Care Foreman Relationship Specialty Start Date End Date Enrique Esposito, CONCERT MANAGER.TYPEWRITER TESTER [address] [place] [address] [id number] PCP - General 08/15/23 Sofie Diana MD [address] [place], [place] 3898395 Primary Staff Physician Cardiology 07/03/21 Verito Whelan MD [address] [place], [place] [phone] Referring Pulmonary Disease 10/04/21 Nina Grigsby MD [address] [facility] [place] [address] Physician Hematology/Oncology 10/25/21 Patricia Miller, CONCERT MANAGER.TYPEWRITER TESTER [address] [place] [place] [address] Nurse Practitioner Hematology/Oncology 10/25/21 Denita Rai, KERRY [address] [place] [place] [address] Specialty Flash Drier Operator Hematology/Oncology 10/25/21 Minna Madrigal LSW Library Media Technician 01/08/23 Estella Fish, CONCERT MANAGER.TYPEWRITER TESTER [address] [facility] [place] [address] Hospice & Palliative Medicine 05/22/23 Julieth Tapia RN Specialty Flash Drier Operator Hospice & Palliative Medicine 05/22/23 Tree Care Foreman Relationship Specialty Start Date End Date Enrique Esposito, CONCERT MANAGER.TYPEWRITER TESTER [address] [place] [address] [id number] PCP - General 08/15/23 Sofie Diana MD [address] [place], [place] 8431995 Primary Staff Physician Cardiology 07/03/21 Verito Whelan MD [address] [place], [place] [phone] Referring Pulmonary Disease 10/04/21 Nina Grigsby MD [address] [facility] [place] [address] Physician Hematology/Oncology 10/25/21 Patricia Miller, CONCERT MANAGER.TYPEWRITER TESTER [address] [facility] [place] [place] [address] Nurse Practitioner Hematology/Oncology 10/25/21 Denita Rai, KERRY [address] [facility] [place] [place] [address] Specialty Flash Drier Operator Hematology/Oncology 10/25/21 Minna Madrigal LSW Library Media Technician 01/08/23 Estella Fish, CONCERT MANAGER.TYPEWRITER TESTER [address] [facility] [place] [address] Hospice & Palliative Medicine 05/22/23 Julieth Tapia, RN Specialty Flash Drier Operator Hospice & Palliative Medicine 05/22/23 Tree Care Foreman Relationship Specialty Start Date End Date Enrique Esposito, CONCERT MANAGER.TYPEWRITER TESTER [address] [place] [address] PCP - General 08/15/23 Sofie Diana MD [address] [place], [place] [phone] Primary Staff Physician Cardiology 07/03/21 Vreito Whelan MD [address] [facility] [place] [phone] Referring Pulmonary Disease 10/04/21 Nina Grigsby MD [address] [place] [address] [place] [address] Physician Hematology/Oncology 10/25/21 Patricia Miller, CONCERT MANAGER.TYPEWRITER TESTER [address] [place] [address] [place] [address] Nurse Practitioner Hematology/Oncology 10/25/21 Denita Rai, KERRY [address] [place] [address] [place] [address] Specialty Flash Drier Operator Hematology/Oncology 10/25/21 Minna Madrigal LSW Library Media Technician 01/08/23 Estella Fish, CONCERT MANAGER.TYPEWRITER TESTER [address] [place] [address] [place] [address] Hospice & Palliative Medicine 05/22/23 Julieth Tapia, RN Specialty Flash Drier Operator Hospice & Palliative Medicine 05/22/23 Tree Care Foreman Relationship Specialty Start Date End Date Enrique Esposito, CONCERT MANAGER.TYPEWRITER TESTER [address] [place] [address] PCP - General 08/15/23 Sofie Diana MD [address] [place] [address] Primary Staff Physician Cardiology 07/03/21 Verito Whelan MD [address] [place], [place] [phone] Referring Pulmonary Disease 10/04/21 Nina Grigsby MD [address] [place] [address] [place] [address] Physician Hematology/Oncology 10/25/21 Patricia Miller, CONCERT MANAGER.TYPEWRITER TESTER [address] [place] [address] [place] [address] Nurse Practitioner Hematology/Oncology 10/25/21 Denita Rai, KERRY [address] [place] [address] [place] [address] Specialty Flash Drier Operator Hematology/Oncology 10/25/21 Minna Madrigal LSW Library Media Technician 01/08/23 Estella Fish, CONCERT MANAGER.TYPEWRITER TESTER [address] [place] [address] [place] [id number] Hospice & Palliative Medicine 05/22/23 Julieth Tapia, RN Specialty Flash Drier Operator Hospice & Palliative Medicine 05/22/23 Tree Care Foreman Relationship Specialty Start Date End Date Enrique Esposito, CONCERT MANAGER.TYPEWRITER TESTER [address] [place] [address] 19939 PCP - General 08/15/23 Sofie Diana MD [address] [place], [place] [phone] Primary Staff Physician Cardiology 07/03/21 Verito Whelan MD [address] [place], [place] [id number] Referring Pulmonary Disease 10/04/21 Nina Grigsby MD [address] [place] [address] [place] [address] Physician Hematology/Oncology 10/25/21 Patricia iMller, CONCERT MANAGER.TYPEWRITER TESTER [address] [place] [address] [place] [address] Nurse Practitioner Hematology/Oncology 10/25/21 Denita Rai, KERRY [address] [place] [address] [place] [address] Specialty Flash Drier Operator Hematology/Oncology 10/25/21 Minna Madrigal LSW Library Media Technician 01/08/23 Estella Fish, CONCERT MANAGER.TYPEWRITER TESTER [address] [place] [address] [place] [address] Hospice & Palliative Medicine 05/22/23 Julieth Tapia RN Specialty Flash Drier Operator Hospice & Palliative Medicine 05/22/23 Tree Care Foreman Relationship Specialty Start Date End Date Enrique Esposito, CONCERT MANAGER.TYPEWRITER TESTER [address] [place] [address] [phone] PCP - General 08/15/23 Sofie Diana MD [address] [place], [place] [phone] Primary Staff Physician Cardiology 07/03/21 Verito Whelan MD [address] [place], [place] [id number] Referring Pulmonary Disease 10/04/21 Nina Grigsby MD [address] [place] [address] [place] [address] Physician Hematology/Oncology 10/25/21 Patricia Miller, CONCERT MANAGER.TYPEWRITER TESTER [address] [place] [address] [place] [address] Nurse Practitioner Hematology/Oncology 10/25/21 Denita Rai, RN [address] [place] [address] [place] [address] Specialty Flash Drier Operator Hematology/Oncology 10/25/21 Minna Madrigal LSW Library Media Technician 01/08/23 Estella Fish, CONCERT MANAGER.TYPEWRITER TESTER [address] [place] [address] [place] [address] Hospice & Palliative Medicine 05/22/23 Julieth Tapia RN Specialty Flash Drier Operator Hospice & Palliative Medicine 05/22/23 Tree Care Foreman Relationship Specialty Start Date End Date Enrique Esposito, CONCERT MANAGER.TYPEWRITER TESTER [address] [place] [address] 68475 PCP - General 08/15/23 Sofie Diana MD [address] [place] [address] Primary Staff Physician Cardiology 07/03/21 Verito Whelan MD [address] [place], [place] [phone] Referring Pulmonary Disease 10/04/21 Nina Grigsby MD [address] [place] [address] [place] [address] Physician Hematology/Oncology 10/25/21 Patricia Miller, CONCERT MANAGER.TYPEWRITER TESTER [address] [place] [address] [place] [address] Nurse Practitioner Hematology/Oncology 10/25/21 Denita Rai, KERRY [address] [facility] [place] [place] [address] Specialty Flash Drier Operator Hematology/Oncology 10/25/21 Minna Madrigal LSW Library Media Technician 01/08/23 Estella Fish, CONCERT MANAGER.TYPEWRITER TESTER [address] [facility] [place] [address] Hospice & Palliative Medicine 05/22/23 Julieth Tapia RN Specialty Flash Drier Operator Hospice & Palliative Medicine 05/22/23 Tree Care Foreman Relationship Specialty Start Date End Date Enrique Esposito, CONCERT MANAGER.TYPEWRITER TESTER [address] [place] [address] 84722 PCP - General 08/15/23 Sofie Diana MD [address] [place], [place] [phone] Primary Staff Physician Cardiology 07/03/21 Verito Whelan MD [address] [place] [address] Referring Pulmonary Disease 10/04/21 Nina Grigsby MD [address] [place] [address] [place] [address] Physician Hematology/Oncology 10/25/21 Patricia Miller, CONCERT MANAGER.TYPEWRITER TESTER [address] [place] [address] [place] [address] Nurse Practitioner Hematology/Oncology 10/25/21 Denita Rai, KERRY [address] [facility] [place] [place] [address] Specialty Flash Drier Operator Hematology/Oncology 10/25/21 Minna Madrigal, CREAM DIPPER Library Media Technician 01/08/23 Estella Fish, CONCERT MANAGER.TYPEWRITER TESTER [address] [facility] [place] [address] Hospice & Palliative Medicine 05/22/23 Julieth Tapia, RN Specialty Flash Drier Operator Hospice & Palliative Medicine 05/22/23 Tree Care Foreman Relationship Specialty Start Date End Date Enrique Esposito, CONCERT MANAGER.TYPEWRITER TESTER [address] [place] [address] 32602 PCP - General 08/15/23 Sofie Diana MD [address] [place], [place] [phone] Primary Staff Physician Cardiology 07/03/21 Verito Whelan MD [address] [place], [place] [phone] Referring Pulmonary Disease 10/04/21 Nina Grigsby MD [address] [place] [address] [place] [address] Physician Hematology/Oncology 10/25/21 Patricia Miller, CONCERT MANAGER.TYPEWRITER TESTER [address] [place] [address] [place] [address] Nurse Practitioner Hematology/Oncology 10/25/21 Denita Rai, KERRY [address] [facility] [place] [place] [address] Specialty Flash Drier Operator Hematology/Oncology 10/25/21 Minna Madrigal, MARGARET Library Media Technician 01/08/23 Estella Fish, CONCERT MANAGER.TYPEWRITER TESTER [address] [place] [address] [place] [address] Hospice & Palliative Medicine 05/22/23 Julieth Tapia, RN Specialty Flash Drier Operator Hospice & Palliative Medicine 05/22/23 Tree Care Foreman Relationship Specialty Start Date End Date Enrique Esposito, CONCERT MANAGER.TYPEWRITER TESTER [address] [place] [address] [phone] PCP - General 08/15/23 Sofie Diana MD [address] [place], [place] [phone] Primary Staff Physician Cardiology 07/03/21 Verito Whelan MD [address] [place], [place] [phone] Referring Pulmonary Disease 10/04/21 Nina Grigsby MD [address] [place] [address] [place] [address] Physician Hematology/Oncology 10/25/21 Patricia Miller, CONCERT MANAGER.TYPEWRITER TESTER [address] [place] [address] [place] [address] Nurse Practitioner Hematology/Oncology 10/25/21 Denita Rai, KERRY [address] [facility] [place] [address] Specialty Flash Drier Operator Hematology/Oncology 10/25/21 Minna Madrigal LSW Library Media Technician 01/08/23 Estella Fish, CONCERT MANAGER.TYPEWRITER TESTER [address] [facility] [place] [address] Hospice & Palliative Medicine 05/22/23 Julieth Tapia RN Specialty Flash Drier Operator Hospice & Palliative Medicine 05/22/23 Tree Care Foreman Relationship Specialty Start Date End Date Enrique Esposito, CONCERT MANAGER.TYPEWRITER TESTER [address] [place] [address] [phone] PCP - General 08/15/23 Sofie Diana MD [address] [place], [place] [phone] Primary Staff Physician Cardiology 07/03/21 Verito Whelan MD [address] [place], [place] [phone] Referring Pulmonary Disease 10/04/21 Nina Grigsby MD [address] [facility] [place] [address] Physician Hematology/Oncology 10/25/21 Patricia Miller, CONCERT MANAGER.TYPEWRITER TESTER [address] [facility] [place] [address] Nurse Practitioner Hematology/Oncology 10/25/21 Denita Rai, KERRY [address] [facility] [place] [place] [address] Specialty Flash Drier Operator Hematology/Oncology 10/25/21 Minna Madrigal LSW Library Media Technician 01/08/23 Estella Fish, CONCERT MANAGER.TYPEWRITER TESTER [address] [facility] [place] [address] Hospice & Palliative Medicine 05/22/23 Julieth Tapia, RN Specialty Flash Drier Operator Hospice & Palliative Medicine 05/22/23 Tree Care Foreman Relationship Specialty Start Date End Date Enrique Esposito, CONCERT MANAGER.TYPEWRITER TESTER [address] [place] [address] [phone] PCP - General 08/15/23 Sofie Diana MD [address] [place], [place] [phone] Primary Staff Physician Cardiology 07/03/21 Verito Whelan MD [address] [place], [place] [phone] Referring Pulmonary Disease 10/04/21 Nina Grigsby MD [address] [facility] [place] [address] Physician Hematology/Oncology 10/25/21 Patricia Miller, CONCERT MANAGER.TYPEWRITER TESTER [address] [facility] [place] [place] [address] Nurse Practitioner Hematology/Oncology 10/25/21 Denita Rai, KERRY [address] [facility] [place] [place] [address] Specialty Flash Drier Operator Hematology/Oncology 10/25/21 Minna Madrigal LSW Library Media Technician 01/08/23 Estella Fish, CONCERT MANAGER.TYPEWRITER TESTER [address] [facility] [place] [address] Hospice & Palliative Medicine 05/22/23 Julieth Tapia, RN Specialty Flash Drier Operator Hospice & Palliative Medicine 05/22/23 Tree Care Foreman Relationship Specialty Start Date End Date Enrique Esposito, CONCERT MANAGER.TYPEWRITER TESTER [address] [facility] [place] [address] PCP - General 08/15/23 Sofie Diana MD [address] [place] [address] Primary Staff Physician Cardiology 07/03/21 Verito Whelan MD [address] [place] [address] Referring Pulmonary Disease 10/04/21 Nina Grigsby MD [address] [place] [address] [place] [address] Physician Hematology/Oncology 10/25/21 Patricia Miller, CONCERT MANAGER.TYPEWRITER TESTER [address] [place] [address] [place] [address] Nurse Practitioner Hematology/Oncology 10/25/21 Denita Rai, KERRY [address] [place] [address] [place] [address] Specialty Flash Drier Operator Hematology/Oncology 10/25/21 Minna Madrigal LSW Library Media Technician 01/08/23 Estella Fish, CONCERT MANAGER.TYPEWRITER TESTER [address] [place] [address] [place] [address] Hospice & Palliative Medicine 05/22/23 Julieth Tapia, RN Specialty Flash Drier Operator Hospice & Palliative Medicine 05/22/23 Tree Care Foreman Relationship Specialty Start Date End Date Enrique Esposito, CONCERT MANAGER.TYPEWRITER TESTER [address] [place] [address] 06677 PCP - General 08/15/23 Sofie Diana MD [address] [place] [address] Primary Staff Physician Cardiology 07/03/21 Verito Whelan MD [address] [place] [address] Referring Pulmonary Disease 10/04/21 Nina Grigsby MD [address] [place] [address] [place] [address] Physician Hematology/Oncology 10/25/21 Patricia Miller, CONCERT MANAGER.TYPEWRITER TESTER [address] [place] [address] [place] [address] Nurse Practitioner Hematology/Oncology 10/25/21 Denita Rai, KERRY [address] [place] [address] [place] [address] Specialty Flash Drier Operator Hematology/Oncology 10/25/21 Minna Madrigal LSW Library Media Technician 01/08/23 Estella Fish, CONCERT MANAGER.TYPEWRITER TESTER [address] [place] [address] [place] [phone] Hospice & Palliative Medicine 05/22/23 Julieth Tapia, RN Specialty Flash Drier Operator Hospice & Palliative Medicine 05/22/23 Tree Care Foreman Relationship Specialty Start Date End Date Enrique Esposito, CONCERT MANAGER.TYPEWRITER TESTER [address] [place] [address] 44811 PCP - General 08/15/23 Sofie Diana MD [address] [place] [address] Primary Staff Physician Cardiology 07/03/21 Verito Whelan MD [address] [place] [address] Referring Pulmonary Disease 10/04/21 Nina Grigsby MD [address] [place] [address] [place] [address] Physician Hematology/Oncology 10/25/21 Patricia Miller, CONCERT MANAGER.TYPEWRITER TESTER [address] [place] [address] [place] [address] Nurse Practitioner Hematology/Oncology 10/25/21 Denita Rai, KERRY [address] [place] [address] [place] [address] Specialty Flash Drier Operator Hematology/Oncology 10/25/21 Minna Madrigal LSW Library Media Technician 01/08/23 Estella Fish, CONCERT MANAGER.TYPEWRITER TESTER [address] [place] [address] [place] [address] Hospice & Palliative Medicine 05/22/23 Julieth Tapia RN Specialty Flash Drier Operator Hospice & Palliative Medicine 05/22/23 Tree Care Foreman Relationship Specialty Start Date End Date Enrique Esposito, CONCERT MANAGER.TYPEWRITER TESTER [address] [place] [address] 42957 PCP - General 08/15/23 Sofie Diana MD [address] [place], [place] [phone] Primary Staff Physician Cardiology 07/03/21 Verito Whelan MD [address] [place] [address] Referring Pulmonary Disease 10/04/21 Nina Grigsby MD [address] [place] [address] [place] [address] Physician Hematology/Oncology 10/25/21 Patricia Miller, CONCERT MANAGER.TYPEWRITER TESTER [address] [place] [address] [place] [address] Nurse Practitioner Hematology/Oncology 10/25/21 Denita Rai, RN [address] [place] [address] [place] [address] Specialty Flash Drier Operator Hematology/Oncology 10/25/21 Minna Madrigal LSW Library Media Technician 01/08/23 Estella Fish, CONCERT MANAGER.TYPEWRITER TESTER [address] [place] [address] [place] [address] Hospice & Palliative Medicine 05/22/23 Julieth Tapia RN Specialty Flash Drier Operator Hospice & Palliative Medicine 05/22/23 Tree Care Foreman Relationship Specialty Start Date End Date Enrique Esposito, CONCERT MANAGER.TYPEWRITER TESTER [address] [place] [address] [phone] PCP - General 08/15/23 Sofie Diana MD [address] [place], [place] [phone] Primary Staff Physician Cardiology 07/03/21 Verito Whelan MD [address] [place], [place] [phone] Referring Pulmonary Disease 10/04/21 Nina Grigsby MD [address] [place] [address] [place] [address] Physician Hematology/Oncology 10/25/21 Patricia Miller, CONCERT MANAGER.TYPEWRITER TESTER [address] [place] [address] [place] [address] Nurse Practitioner Hematology/Oncology 10/25/21 Denita Rai, KERRY [address] [place] [address] [place] [address] Specialty Flash Drier Operator Hematology/Oncology 10/25/21 Minna Madrigal LSW Library Media Technician 01/08/23 Estella Fish, CONCERT MANAGER.TYPEWRITER TESTER [address] [place] [address] [place] [address] Hospice & Palliative Medicine 05/22/23 Julieth Tapia RN Specialty Flash Drier Operator Hospice & Palliative Medicine 05/22/23 Tree Care Foreman Relationship Specialty Start Date End Date Enrique Esposito, CONCERT MANAGER.TYPEWRITER TESTER [address] [place] [address] 73120 PCP - General 08/15/23 Sofie Diana MD [address] [place], [place] 1968495 Primary Staff Physician Cardiology 07/03/21 Verito Whelan MD [address] [place] [address] Referring Pulmonary Disease 10/04/21 Nina Grigsby MD [address] [place] [address] [place] [address] Physician Hematology/Oncology 10/25/21 Patricia Miller, CONCERT MANAGER.TYPEWRITER TESTER [address] [place] [address] [place] [address] Nurse Practitioner Hematology/Oncology 10/25/21 Denita Rai, KERRY [address] [facility] [place] [address] Specialty Flash Drier Operator Hematology/Oncology 10/25/21 Minna Madrigal LSW Library Media Technician 01/08/23 Estella Fish, CONCERT MANAGER.TYPEWRITER TESTER [address] [facility] [place] [place] [address] Hospice & Palliative Medicine 05/22/23 Julieth Tapia RN Specialty Flash Drier Operator Hospice & Palliative Medicine 05/22/23 Tree Care Foreman Relationship Specialty Start Date End Date Enrique Esposito, CONCERT MANAGER.TYPEWRITER TESTER [address] [place] [address] PCP - General 08/15/23 Sofie Diana MD [address] [place] [address] Primary Staff Physician Cardiology 07/03/21 Verito Whelan MD [address] [place], [place] [phone] Referring Pulmonary Disease 10/04/21 Nina Grigsby MD [address] [facility] [place] [address] Physician Hematology/Oncology 10/25/21 Patricia Miller, CONCERT MANAGER.TYPEWRITER TESTER [address] [facility] [place] [address] Nurse Practitioner Hematology/Oncology 10/25/21 Denita Rai, KERRY [address] [facility] [place] [place] [address] Specialty Flash Drier Operator Hematology/Oncology 10/25/21 Minna Madrigal LSW Library Media Technician 01/08/23 Estella Fish, CONCERT MANAGER.TYPEWRITER TESTER [address] [facility] [place] [place] [address] Hospice & Palliative Medicine 05/22/23 Julieth Tapia RN Specialty Flash Drier Operator Hospice & Palliative Medicine 05/22/23 Tree Care Foreman Relationship Specialty Start Date End Date Enrique Esposito, CONCERT MANAGER.TYPEWRITER TESTER [address] [place] [address] 83756 PCP - General 08/15/23 Sofie Diana MD [address] [place], [place] [phone] Primary Staff Physician Cardiology 07/03/21 Verito Whelan MD [address] [place] [address] Referring Pulmonary Disease 10/04/21 Nina Grigsby MD [address] [place] [address] [place] [address] Physician Hematology/Oncology 10/25/21 Patricia Miller, CONCERT MANAGER.TYPEWRITER TESTER [address] [place] [address] [place] [address] Nurse Practitioner Hematology/Oncology 10/25/21 Denita Rai, KERRY [address] [place] [address] [place] [address] Specialty Flash Drier Operator Hematology/Oncology 10/25/21 Minna Madrigal LSW Library Media Technician 01/08/23 Estella Fish, CONCERT MANAGER.TYPEWRITER TESTER [address] [facility] [place] [place] [address] Hospice & Palliative Medicine 05/22/23 Julieth Tapia RN Specialty Flash Drier Operator Hospice & Palliative Medicine 05/22/23 Tree Care Foreman Relationship Specialty Start Date End Date Enrique Esposito, CONCERT MANAGER.TYPEWRITER TESTER [address] [place] [address] 47458 PCP - General 08/15/23 Sofie Diana MD [address] [place], [place] [phone] Primary Staff Physician Cardiology 07/03/21 Verito Whelan MD [address] [place], [place] [phone] Referring Pulmonary Disease 10/04/21 Nina Grigsby MD [address] [place] [address] [place] [address] Physician Hematology/Oncology 10/25/21 Patricia Miller, CONCERT MANAGER.TYPEWRITER TESTER [address] [place] [address] [place] [address] Nurse Practitioner Hematology/Oncology 10/25/21 Denita Rai, KERRY [address] [place] [address] [place] [address] Specialty Flash Drier Operator Hematology/Oncology 10/25/21 Minna Madrigal LSW Library Media Technician 01/08/23 Estella Fish, CONCERT MANAGER.TYPEWRITER TESTER [address] [place] [address] [place] [phone] Hospice & Palliative Medicine 05/22/23 Julieth Tapia, RN Specialty Flash Drier Operator Hospice & Palliative Medicine 05/22/23 Tree Care Foreman Relationship Specialty Start Date End Date Enrique Esposito, CONCERT MANAGER.TYPEWRITER TESTER [address] [place] [address] 55515 PCP - General 08/15/23 Sofie Diana MD [address] [place], [place] [phone] Primary Staff Physician Cardiology 07/03/21 Verito Whelan MD [address] [place], [place] [phone] Referring Pulmonary Disease 10/04/21 Nina Grigsby MD [address] [facility] [place] [address] Physician Hematology/Oncology 10/25/21 Patricia Miller, CONCERT MANAGER.TYPEWRITER TESTER [address] [facility] [place] [place] [address] Nurse Practitioner Hematology/Oncology 10/25/21 Denita Rai, KERRY [address] [facility] [place] [place] [address] Specialty Flash Drier Operator Hematology/Oncology 10/25/21 Minna Madrigal LSW Library Media Technician 01/08/23 Etsella Fish, CONCERT MANAGER.TYPEWRITER TESTER [address] [facility] [place] [address] Hospice & Palliative Medicine 05/22/23 Julieth Tapia, RN Specialty Flash Drier Operator Hospice & Palliative Medicine 05/22/23 Tree Care Foreman Relationship Specialty Start Date End Date Enrique Esposito, CONCERT MANAGER.TYPEWRITER TESTER [address] [place] [address] 44811 PCP - General 08/15/23 Sofie Diana MD [address] [place], [place] [phone] Primary Staff Physician Cardiology 07/03/21 Verito Whelan MD [address] [place], [place] [phone] Referring Pulmonary Disease 10/04/21 Nina Grigsby MD [address] [place] [address] [place] [address] Physician Hematology/Oncology 10/25/21 Patrciia Miller, CONCERT MANAGER.TYPEWRITER TESTER [address] [place] [address] [place] [address] Nurse Practitioner Hematology/Oncology 10/25/21 Denita Rai, KERRY [address] [facility] [place] [address] Specialty Flash Drier Operator Hematology/Oncology 10/25/21 Minna Madrigal LSW Library Media Technician 01/08/23 Estella Fish, CONCERT MANAGER.TYPEWRITER TESTER [address] [place] [address] [place] [address] Hospice & Palliative Medicine 05/22/23 Julieth Tapia RN Specialty Flash Drier Operator Hospice & Palliative Medicine 05/22/23 Team Status: Active Member Role Status Dates NON STAFF Primary Care Provider Active Team Status: Inactive Member Role Status Dates NON STAFF Primary Care Provider Active Start: February 07, 2024 End: February 07, 2024 John Dominguez MD Emergency Provider Active Star t: February 07, 2024 End: February 07, 2024 Tree Care Foreman Relationship Specialty Start Date End Date Enrique Esposito, CONCERT MANAGER.TYPEWRITER TESTER [address] [place] [address] 71123 PCP - General 08/15/23 Sofie Diana MD [address] [place], [place] [phone] Primary Staff Physician Cardiology 07/03/21 Verito Whelan MD [address] [place] [address] Referring Pulmonary Disease 10/04/21 Nina Grigsby MD [address] [place] [address] [place] [address] Physician Hematology/Oncology 10/25/21 Patricia Miller, CONCERT MANAGER.TYPEWRITER TESTER [address] [place] [address] [place] [address] Nurse Practitioner Hematology/Oncology 10/25/21 Denita Rai, KERRY [address] [facility] [place] [place] [address] Specialty Flash Drier Operator Hematology/Oncology 10/25/21 Minna Madrigal LSW Library Media Technician 01/08/23 Estella Fish, CONCERT MANAGER.TYPEWRITER TESTER [address] [place] [address] [place] [address] Hospice & Palliative Medicine 05/22/23 Julieth Tapia, RN Specialty Flash Drier Operator Hospice & Palliative Medicine 05/22/23 Tree Care Foreman Relationship Specialty Start Date End Date Enrique Esposito, CONCERT MANAGER.TYPEWRITER TESTER [address] [place] [address] PCP - General 08/15/23 Sofie Diana MD [address] [place] [address] Primary Staff Physician Cardiology 07/03/21 Verito Whelan MD [address] [place] [id number] Referring Pulmonary Disease 10/04/21 Nina Grigsby MD [address] [place] [address] [place] [address] Physician Hematology/Oncology 10/25/21 Patricia Miller, CONCERT MANAGER.TYPEWRITER TESTER [address] [place] [address] [place] [address] Nurse Practitioner Hematology/Oncology 10/25/21 Denita Rai, KERRY [address] [place] [address] [place] [address] Specialty Flash Drier Operator Hematology/Oncology 10/25/21 Minna Madrigal LSW Library Media Technician 01/08/23 Estella Fish, CONCERT MANAGER.TYPEWRITER TESTER [address] [place] [address] [place] [address] Hospice & Palliative Medicine 05/22/23 Julieth Tapia, RN Specialty Flash Drier Operator Hospice & Palliative Medicine 05/22/23 Tree Care Foreman Relationship Specialty Start Date End Date Enrique Esposito, CONCERT MANAGER.TYPEWRITER TESTER [address] [place] [address] 85891 PCP - General 08/15/23 Sofie Diana MD [address] [place] [address] Primary Staff Physician Cardiology 07/03/21 Verito Whelan MD [address] [place] [address] Referring Pulmonary Disease 10/04/21 Nina Grigsby MD [address] [place] [address] [place] [address] Physician Hematology/Oncology 10/25/21 Patricia Miller, CONCERT MANAGER.TYPEWRITER TESTER [address] [place] [address] [place] [address] Nurse Practitioner Hematology/Oncology 10/25/21 Denita Rai, KERRY [address] [place] [address] [place] [address] Specialty Flash Drier Operator Hematology/Oncology 10/25/21 Minna Madrigal LSW Library Media Technician 01/08/23 Estella Fish, CONCERT MANAGER.TYPEWRITER TESTER [address] [place] [address] [place] [address] Hospice & Palliative Medicine 05/22/23 Julieth Tapia RN Specialty Flash Drier Operator Hospice & Palliative Medicine 05/22/23 Tree Care Foreman Relationship Specialty Start Date End Date Enrique Esposito, CONCERT MANAGER.TYPEWRITER TESTER [address] [place] [address] 77787 PCP - General 08/15/23 Sofie Diana MD [address] [place], [place] [phone] Primary Staff Physician Cardiology 07/03/21 Verito Whelan MD [address] [place], [place] [id number] Referring Pulmonary Disease 10/04/21 Nina Grigsby MD [address] [place] [address] [place] [address] Physician Hematology/Oncology 10/25/21 Patricia Miller, CONCERT MANAGER.TYPEWRITER TESTER [address] [place] [address] [place] [address] Nurse Practitioner Hematology/Oncology 10/25/21 Denita Rai, RN [address] [place] [address] Specialty Flash Drier Operator Hematology/Oncology 10/25/21 Minna Madrigal LSW Library Media Technician 01/08/23 Estella Fish, CONCERT MANAGER.TYPEWRITER TESTER [address] [facility] [place] [address] Hospice & Palliative Medicine 05/22/23 Julieth Tapia RN Specialty Flash Drier Operator Hospice & Palliative Medicine 05/22/23 Tree Care Foreman Relationship Specialty Start Date End Date Enrique Esposito, CONCERT MANAGER.TYPEWRITER TESTER [address] [place] [address] PCP - General 08/15/23 Sofie Diana MD [address] [place] [address] Primary Staff Physician Cardiology 07/03/21 Verito Whelan MD [address] [place] [address] Referring Pulmonary Disease 10/04/21 Nina Grigsby MD [address] [place] [address] [place] [address] Physician Hematology/Oncology 10/25/21 Patricia Miller, CONCERT MANAGER.TYPEWRITER TESTER [address] [place] [address] [place] [address] Nurse Practitioner Hematology/Oncology 10/25/21 Denita Rai, KERRY [address] [facility] [place] [address] Specialty Flash Drier Operator Hematology/Oncology 10/25/21 Minna Madrigal LSW Library Media Technician 01/08/23 Estella Fish, CONCERT MANAGER.TYPEWRITER TESTER [address] [place] [address] [place] [address] Hospice & Palliative Medicine 05/22/23 Julieth Tapia RN Specialty Flash Drier Operator Hospice & Palliative Medicine 05/22/23 Tree Care Foreman Relationship Specialty Start Date End Date Enrique Esposito, CONCERT MANAGER.TYPEWRITER TESTER [address] [place] [address] PCP - General 08/15/23 Sofie Diana MD [address] [place], [place] [phone] Primary Staff Physician Cardiology 07/03/21 Verito Whelan MD [address] [place] [address] Referring Pulmonary Disease 10/04/21 Nina Grigsby MD [address] [place] [address] [place] [address] Physician Hematology/Oncology 10/25/21 Patricia Miller, CONCERT MANAGER.TYPEWRITER TESTER [address] [place] [address] [place] [address] Nurse Practitioner Hematology/Oncology 10/25/21 Denita Rai, KERRY [address] [facility] [place] [address] Specialty Flash Drier Operator Hematology/Oncology 10/25/21 Minna Madrigal, CREAM DIPPER Library Media Technician 01/08/23 Estella Fish, CONCERT MANAGER.TYPEWRITER TESTER [address] [facility] [place] [address] Hospice & Palliative Medicine 05/22/23 Julieth Tapia RN Specialty Flash Drier Operator Hospice & Palliative Medicine 05/22/23 Tree Care Foreman Relationship Specialty Start Date End Date Enrique Esposito, CONCERT MANAGER.TYPEWRITER TESTER [address] [place] [address] PCP - General 08/15/23 Sofie Diana MD [address] [place], [place] [id number] Primary Staff Physician Cardiology 07/03/21 Verito Whelan MD [address] [place], [place] [phone] Referring Pulmonary Disease 10/04/21 Nina Grigsby MD [address] [place] [address] [place] [address] Physician Hematology/Oncology 10/25/21 Patricia Miller, CONCERT MANAGER.TYPEWRITER TESTER [address] [place] [address] [place] [address] Nurse Practitioner Hematology/Oncology 10/25/21 Denita Rai, KERRY [address] [place] [address] Specialty Flash Drier Operator Hematology/Oncology 10/25/21 Minna Madrigal, CREAM DIPPER Library Media Technician 01/08/23 Estella Fish, CONCERT MANAGER.TYPEWRITER TESTER [address] [place] [address] [place] [address] Hospice & Palliative Medicine 05/22/23 Julieth Tapia, KERRY Specialty Flash Drier Operator Hospice & Palliative Medicine 05/22/23 Tree Care Foreman Relationship Specialty Start Date End Date Enrique Esposito, CONCERT MANAGER.TYPEWRITER TESTER [address] [place] [address] PCP - General 08/15/23 Sofie Diana MD [address] [place] [address] Primary Staff Physician Cardiology 07/03/21 Verito Whelan MD [address] [place], [place] [id number] Referring Pulmonary Disease 10/04/21 Nina Grigsby MD [address] [place] [address] [place] [address] Physician Hematology/Oncology 10/25/21 Patricia Miller, CONCERT MANAGER.TYPEWRITER TESTER [address] [place] [address] [place] [address] Nurse Practitioner Hematology/Oncology 10/25/21 Denita Rai, KERRY [address] [place] [address] [place] [address] Specialty Flash Drier Operator Hematology/Oncology 10/25/21 Minna Madrigal LSW Library Media Technician 01/08/23 Estella Fish, CONCERT MANAGER.TYPEWRITER TESTER [address] [facility] [place] [address] Hospice & Palliative Medicine 05/22/23 Julieth Tapia RN Specialty Flash Drier Operator Hospice & Palliative Medicine 05/22/23 Tree Care Foreman Relationship Specialty Start Date End Date Enrique Esposito, CONCERT MANAGER.TYPEWRITER TESTER [address] [place] [address] [phone] PCP - General 08/15/23 Sofie Diana MD [address] [place], [place] [phone] Primary Staff Physician Cardiology 07/03/21 Verito Whelan MD [address] [place], [place] [phone] Referring Pulmonary Disease 10/04/21 Nina Grigsby MD [address] [place] [place] [address] Physician Hematology/Oncology 10/25/21 Patricia Miller, CONCERT MANAGER.TYPEWRITER TESTER [address] [place] [place] [address] Nurse Practitioner Hematology/Oncology 10/25/21 Denita Rai, KERRY [address] [place] [address] [place] [address] Specialty Flash Drier Operator Hematology/Oncology 10/25/21 Minna Madrigal LSW Library Media Technician 01/08/23 Estella Fish, CONCERT MANAGER.TYPEWRITER TESTER [address] [facility] [place] [phone] Hospice & Palliative Medicine 05/22/23 Julieth Tapia, RN Specialty Flash Drier Operator Hospice & Palliative Medicine 05/22/23 Tree Care Foreman Relationship Specialty Start Date End Date Enrique Esposito, CONCERT MANAGER.TYPEWRITER TESTER [address] [place] [address] PCP - General 08/15/23 Sofie Dinaa MD [address] [place] [address] Primary Staff Physician Cardiology 07/03/21 Verito Whelan MD [address] [place] [address] Referring Pulmonary Disease 10/04/21 Nina Grigsby MD [address] [facility] [place] [address] Physician Hematology/Oncology 10/25/21 Patricia Miller, CONCERT MANAGER.TYPEWRITER TESTER [address] [facility] [place] [address] Nurse Practitioner Hematology/Oncology 10/25/21 Denita Rai, KERRY [address] [facility] [place] [address] Specialty Flash Drier Operator Hematology/Oncology 10/25/21 Minna Madrigal LSW Library Media Technician 01/08/23 Estella Fish, CONCERT MANAGER.TYPEWRITER TESTER [address] [facility] [place] [address] Hospice & Palliative Medicine 05/22/23 Julieth Tapia, RN Specialty Flash Drier Operator Hospice & Palliative Medicine 05/22/23 Tree Care Foreman Relationship Specialty Start Date End Date Enrique Esposito, CONCERT MANAGER.TYPEWRITER TESTER [address] [facility] [place] [address] PCP - General 08/15/23 Sofie Diana MD [address] [place] [address] Primary Staff Physician Cardiology 07/03/21 Verito Whelan MD [address] [place] [address] Referring Pulmonary Disease 10/04/21 Nina Grigsby MD [address] [place] [address] [place] [address] Physician Hematology/Oncology 10/25/21 Patricia Miller, CONCERT MANAGER.TYPEWRITER TESTER [address] [place] [address] [place] [address] Nurse Practitioner Hematology/Oncology 10/25/21 Denita Rai, KERYR [address] [facility] [place] [address] Specialty Flash Drier Operator Hematology/Oncology 10/25/21 Minna Madrigal LSW Library Media Technician 01/08/23 Estella Fish, CONCERT MANAGER.TYPEWRITER TESTER [address] [place] [address] [place] [address] Hospice & Palliative Medicine 05/22/23 Julieth Tapia, RN Specialty Flash Drier Operator Hospice & Palliative Medicine 05/22/23 Tree Care Foreman Relationship Specialty Start Date End Date Enrique Esposito, CONCERT MANAGER.TYPEWRITER TESTER [address] [place] [address] PCP - General 08/15/23 Sofie Diana MD [address] [place] [address] Primary Staff Physician Cardiology 07/03/21 Verito Whelan MD [address] [place] [id number] Referring Pulmonary Disease 10/04/21 Nina Grigsby MD [address] [place] [address] [place] [address] Physician Hematology/Oncology 10/25/21 Patricia Miller, CONCERT MANAGER.TYPEWRITER TESTER [address] [place] [address] [place] [address] Nurse Practitioner Hematology/Oncology 10/25/21 Denita Rai, KERRY [address] [place] [address] [place] [address] Specialty Flash Drier Operator Hematology/Oncology 10/25/21 Minna Madrigal LSW Library Media Technician 01/08/23 Estella Fish, CONCERT MANAGER.TYPEWRITER TESTER [address] [place] [address] [place] [address] Hospice & Palliative Medicine 05/22/23 Julieth Tapia, RN Specialty Flash Drier Operator Hospice & Palliative Medicine 05/22/23 Tree Care Foreman Relationship Specialty Start Date End Date Enrique Esposito, CONCERT MANAGER.TYPEWRITER TESTER [address] [place] [address]68 PCP - General 08/15/23 Sofie Diana MD [address] [place] [address] Primary Staff Physician Cardiology 07/03/21 Verito Whelan MD [address] [place] [address] Referring Pulmonary Disease 10/04/21 Nina Grigsby MD [address] [place] [address] [place] [address] Physician Hematology/Oncology 10/25/21 Patricia Miller, CONCERT MANAGER.TYPEWRITER TESTER [address] [place] [address] [place] [address] Nurse Practitioner Hematology/Oncology 10/25/21 Denita Rai, KERRY [address] [place] [address] [place] [address] Specialty Flash Drier Operator Hematology/Oncology 10/25/21 Minna Madrigal LSW Library Media Technician 01/08/23 Estella Fish, CONCERT MANAGER.TYPEWRITER TESTER [address] [place] [address] [place] [address] Hospice & Palliative Medicine 05/22/23 Julieth Tapia RN Specialty Flash Drier Operator Hospice & Palliative Medicine 05/22/23 Team [...] March 19, 2024 End: March 20, 2024 Tree Care Foreman Relationship Specialty Start Date End Date Enrique Esposito CONCERT MANAGER.TYPEWRITER TESTER [address] [place] [address] PCP - General 08/15/23 Sofie Diana MD [address] [place] [address] Primary Staff Physician Cardiology 07/03/21 Verito Whelan MD [address] [place] [address] Referring Pulmonary Disease 10/04/21 Nina Grigsby MD [address] [place] [address] [place] [address] Physician Hematology/Oncology 10/25/21 Patricia Miller, CONCERT MANAGER.TYPEWRITER TESTER [address] [place] [address] [place] [address] Nurse Practitioner Hematology/Oncology 10/25/21 Denita Rai, KERRY [address] [place] [address] [place] [address] Specialty Flash Drier Operator Hematology/Oncology 10/25/21 Minna Madrigal LSW Library Media Technician 01/08/23 Estella Fish, CONCERT MANAGER.TYPEWRITER TESTER [address] [place] [address] [place] [id number] Hospice & Palliative Medicine 05/22/23 Julieth Tapia, RN Specialty Flash Drier Operator Hospice & Palliative Medicine 05/22/23 Tree Care Foreman Relationship Specialty Start Date End Date Enrique Esposito, CONCERT MANAGER.TYPEWRITER TESTER [address] [place] [address] PCP - General 08/15/23 Sofie Diana MD [address] [place], [place] [phone] Primary Staff Physician Cardiology 07/03/21 Verito Whelan MD [address] [place], [place] [phone] Referring Pulmonary Disease 10/04/21 Nina Grigsby MD [address] [place] [address] [place] [address] Physician Hematology/Oncology 10/25/21 Patricia Miller, CONCERT MANAGER.TYPEWRITER TESTER [address] [place] [address] [place] [address] Nurse Practitioner Hematology/Oncology 10/25/21 Denita Rai, KERRY [address] [place] [address] [place] [address] Specialty Flash Drier Operator Hematology/Oncology 10/25/21 Minna Madrigal LSW Library Media Technician 01/08/23 Estella Fish, CONCERT MANAGER.TYPEWRITER TESTER [address] [place] [address] [place] [address] Hospice & Palliative Medicine 05/22/23 Julieth Tapai, KERRY Specialty Flash Drier Operator Hospice & Palliative Medicine 05/22/23 Tree Care Foreman Relationship Specialty Start Date End Date Enrique Esposito, CONCERT MANAGER.TYPEWRITER TESTER [address] [place] [address] PCP - General 08/15/23 Sofie Diana MD [address] [place] [address] Primary Staff Physician Cardiology 07/03/21 Verito Whelan MD [address] [place], [place] [phone] Referring Pulmonary Disease 10/04/21 Nina Grigsby MD [address] [place] [address] [place] [address] Physician Hematology/Oncology 10/25/21 Patricia Miller, CONCERT MANAGER.TYPEWRITER TESTER [address] [place] [address] [place] [address] Nurse Practitioner Hematology/Oncology 10/25/21 Denita Rai, KERRY [address] [place] [address] [place] [address] Specialty Flash Drier Operator Hematology/Oncology 10/25/21 Minna Madrigal LSW Library Media Technician 01/08/23 Estella Fish, CONCERT MANAGER.TYPEWRITER TESTER [address] [place] [address] [place] [address] Hospice & Palliative Medicine 05/22/23 Julieth Tapia, RN Specialty Flash Drier Operator Hospice & Palliative Medicine 05/22/23 Tree Care Foreman Relationship Specialty Start Date End Date Enrique Esposito, CONCERT MANAGER.TYPEWRITER TESTER [address] [place] [address]81 PCP - General 08/15/23 Sofie Diana MD [address] [place] [address] Primary Staff Physician Cardiology 07/03/21 Verito Whelan MD [address] [place] [address] Referring Pulmonary Disease 10/04/21 Nina Grigsby MD [address] [place] [address] [place] [address] Physician Hematology/Oncology 10/25/21 Patricia Miller, CONCERT MANAGER.TYPEWRITER TESTER [address] [place] [place] [address] Nurse Practitioner Hematology/Oncology 10/25/21 Denita Rai, KERRY [address] [place] [place] [address] Specialty Flash Drier Operator Hematology/Oncology 10/25/21 Minna Madrigal LSW Library Media Technician 01/08/23 Estella Fish, CONCERT MANAGER.TYPEWRITER TESTER [address] [place] [address] [place] [address] Hospice & Palliative Medicine 05/22/23 Julieth Tapia RN Specialty Flash Drier Operator Hospice & Palliative Medicine 05/22/23 Tree Care Foreman Relationship Specialty Start Date End Date Enrique Esposito, CONCERT MANAGER.TYPEWRITER TESTER [address] [place] [address] PCP - General 08/15/23 Sofie Diana MD [address] [place], [place] [phone] Primary Staff Physician Cardiology 07/03/21 Verito Whelan MD [address] [place], [place] [phone] Referring Pulmonary Disease 10/04/21 Nina Grigsby MD [address] [place] [address] [place] [address] Physician Hematology/Oncology 10/25/21 Patricia Miller, CONCERT MANAGER.TYPEWRITER TESTER [address] [place] [address] [place] [address] Nurse Practitioner Hematology/Oncology 10/25/21 Denita Rai, RN [address] [place] [address] [place] [address] Specialty Flash Drier Operator Hematology/Oncology 10/25/21 Minna Madrigal LSW Library Media Technician 01/08/23 Estella Fish, CONCERT MANAGER.TYPEWRITER TESTER [address] [place] [address] [place] [address] Hospice & Palliative Medicine 05/22/23 Julieth Tapia RN Specialty Flash Drier Operator Hospice & Palliative Medicine 05/22/23 Tree Care Foreman Relationship Specialty Start Date End Date Enrique Esposito, CONCERT MANAGER.TYPEWRITER TESTER [address] [place] [address] PCP - General 08/15/23 Sofie Diana MD [address] [place], [place] [phone] Primary Staff Physician Cardiology 07/03/21 Verito Whelan MD [address] [place] [address] Referring Pulmonary Disease 10/04/21 Nina Grigsby MD [address] [place] [address] [place] [address] Physician Hematology/Oncology 10/25/21 Patricai Miller, CONCERT MANAGER.TYPEWRITER TESTER [address] [place] [address] [place] [address] Nurse Practitioner Hematology/Oncology 10/25/21 Denita Rai, KERRY [address] [place] [address] [place] [address] Specialty Flash Drier Operator Hematology/Oncology 10/25/21 Minna Madrigal LSW Library Media Technician 01/08/23 Estella Fish, CONCERT MANAGER.TYPEWRITER TESTER [address] [place] [address] [place] [address] Hospice & Palliative Medicine 05/22/23 Julieth Tapia RN Specialty Flash Drier Operator Hospice & Palliative Medicine 05/22/23 Tree Care Foreman Relationship Specialty Start Date End Date Christina Azul MD [address] [place] [address] PCP - General Family Medicine 07/03/21 08/14/23 Sofie Diana MD [address] [place] [address] Primary Staff Physician Cardiology 07/03/21 Verito Whelan MD [address] [place] [address] Referring Pulmonary Disease 10/04/21 Nina Grigsby MD [address] [place] [address] [place] [address] Physician Hematology/Oncology 10/25/21 Patricia Miller, CONCERT MANAGER.TYPEWRITER TESTER [address] [place] [address] [place] [address] Nurse Practitioner Hematology/Oncology 10/25/21 Denita Rai, KERRY [address] [facility] [place] [address] Specialty Flash Drier Operator Hematology/Oncology 10/25/21 Minna Madrigal LSW Library Media Technician 01/08/23 Estella Fish, CONCERT MANAGER.TYPEWRITER TESTER [address] [place] [address] [place] [address] Hospice & Palliative Medicine 05/22/23 Julieth Tapia RN Specialty Flash Drier Operator Hospice & Palliative Medicine 05/22/23 Tree Care Foreman Relationship Specialty Start Date End Date Enrique Esposito, CONCERT MANAGER.TYPEWRITER TESTER [address] [place] [address]28 PCP - General 08/15/23 Sofie Diana MD [address] [place] [phone] Primary Staff Physician Cardiology 07/03/21 Verito Whelan MD [address] [place], [place] [phone] Referring Pulmonary Disease 10/04/21 Nina Grigsby MD [address] [place] [address] [place] [address] Physician Hematology/Oncology 10/25/21 Patricia Miller, CONCERT MANAGER.TYPEWRITER TESTER [address] [place] [address] [place] [address] Nurse Practitioner Hematology/Oncology 10/25/21 Denita Rai, KERRY [address] [place] [address] [place] [address] Specialty Flash Drier Operator Hematology/Oncology 10/25/21 Minna Madrigal LSW Library Media Technician 01/08/23 Estella Fish, CONCERT MANAGER.TYPEWRITER TESTER [address] [facility] [place] [address] Hospice & Palliative Medicine 05/22/23 Julieth Tapia, RN Specialty Flash Drier Operator Hospice & Palliative Medicine 05/22/23 Tree Care Foreman Relationship Specialty Start Date End Date Enrique Esposito, CONCERT MANAGER.TYPEWRITER TESTER [address] [place] [address] PCP - General 08/15/23 Sofie Diana MD [address] [place] [address] Primary Staff Physician Cardiology 07/03/21 Verito Whelan MD [address] [place], [place] [phone] Referring Pulmonary Disease 10/04/21 Nina Grigsby MD [address] [place] [place] [address] Physician Hematology/Oncology 10/25/21 Patricia Miller, CONCERT MANAGER.TYPEWRITER TESTER [address] [place] [place] [address] Nurse Practitioner Hematology/Oncology 10/25/21 Denita Rai, KERRY [address] [facility] [place] [address] Specialty Flash Drier Operator Hematology/Oncology 10/25/21 Minna Madrigal LSW Library Media Technician 01/08/23 Estella Fish, CONCERT MANAGER.TYPEWRITER TESTER [address] [facility] [place] [address] Hospice & Palliative Medicine 05/22/23 Julieth Tapia RN Specialty Flash Drier Operator Hospice & Palliative Medicine 05/22/23 Tree Care Foreman Relationship Specialty Start Date End Date Christina Azul MD [address] [place] [id number] PCP - General Family Medicine 07/03/21 08/14/23 Sofie Diana MD [address] [place], [place] [phone] Primary Staff Physician Cardiology 07/03/21 Verito Whelan MD [address] [place] [phone] Referring Pulmonary Disease 10/04/21 Nina Grigsby MD [address] [place] [address] [address] [place] [phone] Physician Hematology/Oncology 10/25/21 Patricia Miller APRN.TYPEWRITER TESTER [address] [place] [address] [address] [place] [phone] Nurse Practitioner Hematology/Oncology 10/25/21 Denita Rai, KERRY [address] [place] [address] [place] [address] Specialty Flash Drier Operator Hematology/Oncology 10/25/21 Minna Madrigal LSW Library Media Technician 01/08/23 Tree Care Foreman Relationship Specialty Start Date End Date Christina Azul MD [address] [place] [address] PCP - General Family Medicine 07/03/21 08/14/23 Sofie Diana MD [address] [place] [address] Primary Staff Physician Cardiology 07/03/21 Verito Whelan MD [address] [place] [address] Referring Pulmonary Disease 10/04/21 Nina Grigsby MD [address] [place] [address] [place] [address] Physician Hematology/Oncology 10/25/21 Patricia Miller APRN.TYPEWRITER TESTER [address] [place] [address] [place] [address] Nurse Practitioner Hematology/Oncology 10/25/21 Denita Rai, KERRY [address] [place] [address] [place] [address] Specialty Flash Drier Operator Hematology/Oncology 10/25/21 Minna Madrigal LSW Library Media Technician 01/08/23 Tree Care Foreman Relationship Specialty Start Date End Date Christina Azul MD [address] [place] [phone] PCP - General Family Medicine 07/03/21 08/14/23 Sofie Diana MD [address] [place] [address] Primary Staff Physician Cardiology 07/03/21 Verito Whelan MD [address] [place] [phone] Referring Pulmonary Disease 10/04/21 Nina Grigsby MD [address] [place] [address] [place] [address] Physician Hematology/Oncology 10/25/21 Patricia Miller, CONCERT MANAGER.TYPEWRITER TESTER [address] [facility] [place] [address] Nurse Practitioner Hematology/Oncology 10/25/21 Denita Rai, RN [address] [facility] [place] [address] Specialty Flash Drier Operator Hematology/Oncology 10/25/21 Minna Madrigal LSW Library Media Technician 01/08/23 Tree Care Foreman Relationship Specialty Start Date End Date Christina Azul MD [address] [place] [address] PCP - General Family Medicine 07/03/21 08/14/23 Sofie Diana MD [address] [place] [address] Primary Staff Physician Cardiology 07/03/21 Verito Whelan MD [address] [place] [address] Referring Pulmonary Disease 10/04/21 Nina Grigsby MD [address] [place] [address] [place] [address] Physician Hematology/Oncology 10/25/21 Patricia Miller, CONCERT MANAGER.TYPEWRITER TESTER [address] [facility] [place] [address] Nurse Practitioner Hematology/Oncology 10/25/21 Denita Rai, RN [address] [facility] [place] [address] Specialty Flash Drier Operator Hematology/Oncology 10/25/21 Tree Care Foreman Relationship Specialty Start Date End Date Christina Azul MD [address] [place] [address] PCP - General Family Medicine 07/03/21 08/14/23 Sofie Diana MD [address] [place] [place], [place] [phone] Primary Staff Physician Cardiology 07/03/21 Verito Whelan MD [address] [place], [place] [phone] Referring Pulmonary Disease 10/04/21 Nina Grigsby MD [address] [facility] [place] [address] Physician Hematology/Oncology 10/25/21 Patricia Miller APRN.TYPEWRITER TESTER [address] [facility] [place] [address] Nurse Practitioner Hematology/Oncology 10/25/21 Denita Rai, KERRY [address] [facility] [place] [address] Specialty Flash Drier Operator Hematology/Oncology 10/25/21 Tree Care Foreman Relationship Specialty Start Date End Date Christina Azul MD [address] [place] [place] [address] PCP - General Family Medicine 07/03/21 08/14/23 Sofie Diana MD [address] [place] [address] Primary Staff Physician Cardiology 07/03/21 Verito Whelan MD [address] [place] [address] Referring Pulmonary Disease 10/04/21 Nina Grigsby MD [address] [place] [address] [place] [address] Physician Hematology/Oncology 10/25/21 Patricia Miller, CONCERT MANAGER.TYPEWRITER TESTER [address] [place] [address] [place] [address] Nurse Practitioner Hematology/Oncology 10/25/21 Denita Rai, KERRY [address] [place] [address] [place] [address] Specialty Flash Drier Operator Hematology/Oncology 10/25/21 Tree Care Foreman Relationship Specialty Start Date End Date Christina Azul MD [address] [place] [address] PCP - General Family Medicine 07/03/21 08/14/23 Sofie Diana MD [address] [place] [address] Primary Staff Physician Cardiology 07/03/21 Verito Whelan MD [address] [place] [address] Referring Pulmonary Disease 10/04/21 Nina Grigsby MD [address] [place] [address] [place] [address] Physician Hematology/Oncology 10/25/21 Patricia Miller, CONCERT MANAGER.TYPEWRITER TESTER [address] [place] [address] [place] [address] Nurse Practitioner Hematology/Oncology 10/25/21 Denita Rai, KERRY [address] [place] [address] Specialty Flash Drier Operator Hematology/Oncology 10/25/21 Tree Care Foreman Relationship Specialty Start Date End Date Christina Azul MD [address] [place] [address] PCP - General Family Medicine 07/03/21 08/14/23 Sofie Diana MD [address] [place] [address] Primary Staff Physician Cardiology 07/03/21 Verito Whelan MD [address] [place], [place] [id number] Referring Pulmonary Disease 10/04/21 Nina Grigsby MD [address] [place] [address] Physician Hematology/Oncology 10/25/21 Patricia Miller, CONCERT MANAGER.TYPEWRITER TESTER [address] [place] [address] [place] [address] Nurse Practitioner Hematology/Oncology 10/25/21 Denita Rai, KERRY [address] [place] [address] Specialty Flash Drier Operator Hematology/Oncology 10/25/21 Tree Care Foreman Relationship Specialty Start Date End Date Enrique Esposito, CONCERT MANAGER.TYPEWRITER TESTER [address] [place] [address] PCP - General 08/15/23 Sofie Diana MD [address] [place], [place] [id number] Primary Staff Physician Cardiology 07/03/21 Verito Whelan MD [address] [place] [id number] Referring Pulmonary Disease 10/04/21 Nina Grigsby MD [address] [place] [address] [place] [address] Physician Hematology/Oncology 10/25/21 Patricia Miller APRN.TYPEWRITER TESTER [address] [place] [address] [place] [address] Nurse Practitioner Hematology/Oncology 10/25/21 Denita Rai, KERRY [address] [place] [address] [place] [address] Specialty Flash Drier Operator Hematology/Oncology 10/25/21 Minna Madrigal LSW Library Media Technician 01/08/23 Estella Fish, CONCERT MANAGER.TYPEWRITER TESTER [address] [place] [address] [place] [address] Hospice & Palliative Medicine 05/22/23 Julieth Tapia, RN Specialty Flash Drier Operator Hospice & Palliative Medicine 05/22/23 Reason for Visit (unrecogniz ed section and content) Reason Comments Pain Specialty Diagnoses / Procedures Referred By Contac t Referred To Contact Hospice & Palliative Medicine / PALLIATIVE MEDICINE Diagnoses 3 month follow up Procedures OFFICE/OUTPATIENT ESTABLISHED HIGH MDM 40 MIN EST PATIENT Estella Fish, CONCERT MANAGER.TYPEWRITER TESTER [address] [place] [address] Estella Fish, CONCERT MANAGER.TYPEWRITER TESTER [address] [place] [address] Referral ID Status Reason Start Date Expiration Date V isits Requested Visits Authorized [id number] Authorized 10/29/2023 07/20/2024 99 99 Reason Comments Nutrition Assessment Specialty Diagnoses / Procedures Referred By Contac t Referred To Contact Nutrition / NUTRI SAND Diagnoses Nutri appt Procedures OFFICE/OUTPATIENT ESTABLISHED MOD MDM 30 MIN EST PATIENT Self Dominique Murphy, RD [address] [place] [address] Referral ID Status Reason Start Date Expiration Date Visits Re quested Visits Authorized [id number] Closed 10/20/2023 07/20/2024 1 1 Reason Comments [...] MDM 10 MIN EST PATIENT Enrique Esposito, CONCERT MANAGER.TYPEWRITER TESTER [address] [place] [address] Nina Grigsby MD [address] [place] [address] [place] [address] Referral ID Status Reason Start Date Expiration Date Visits Re quested Visits Authorized [id number] Closed 09/04/2023 07/20/2024 1 1 Specialty Diagnoses / Procedures Referred By Contac t Referred To Contact Radiation Oncology / RADIATION ONCOLOGY Diagnoses 2 Week Post XRT Procedures EST POST 90 DAY RAD TX Hector Limon MD [address] [facility] [place] [address] Hector Limon MD [address] [place] [address] [place] [address] Referral ID Status Reason Start Date Expiration Date V isits Requested Visits Authorized [id number] Authorized 11/12/2022 07/20/2023 99 99 Specialty Diagnoses / Procedures Referred By Contac t Referred To Contact [facility] Diagnoses Malignant neoplasm of upper lobe, left bronchus or lung Procedures REFERRAL TO [facility] FINANCIAL COUNSELOR Nina Grigsby MD [address] [place] [address] [place] [address] [facility] [place] [address] Referral ID Status Reason Start Date Expiration Date Visits Requested Visits Authorized [id number] Pending Review Financial Clearance Required - OON [...] (HCC) Procedures CONSULT TO ONCOLOGY OFFICE/OUTPATIENT [facility] 60-74 MINUTES Aracelis Carrillo, OZZIE.TYPEWRITER TESTER [address] [place] [address] Referral ID Status Reason Start Date Expiration Date V isits Requested Visits Authorized [id number] Closed PCP Requested Referral 10/11/2021 10/11/2022 1 [...] lung (HCC) Procedures RAD/ONC CONSULT OFFICE/OUTPATIENT [facility] 60-74 MINUTES Nina Grigsby MD [address] [place] [address] [place] [address] Referral ID Status Reason Start Date Expiration Date V isits Requested Visits Authorized [id number] Closed PCP Requested Referral 10/22/2021 10/22/2022 1 1 Reason Comments Lab Orders Specialty Diagnoses / Procedures Referred By Contac t Referred To Contact Diagnoses Malignant neoplasm of upper lobe of left lung (HCC) Procedures PALONOSETRON HCL CISPLATIN 10 MG INJECTION DIPHENHYDRAMINE HCL INJECTIO INJECTION, PEMETREXED, NOT OTHERWISE SPECIFIED, 10 MG Nina Grigsby MD [address] [place] [address] [place] [address] Kristofer Treat Sanders [address] [place] [address] Referral ID Status Reason Start Date Expiration Date V isits Requested Visits Authorized [id number] Authorized 10/22/2021 01/15/2022 4 4 Reason Comments [...] Referred By Contac t Referred To Contact [facility] Diagnoses Malignant neoplasm of upper lobe, left bronchus or lung Procedures REFERRAL TO [facility] FINANCIAL COUNSELOR Nina Grigsby MD [address] [place] [address] [place] [address] [facility] [address] [place] [address] Reason Comments Results hypokalemia Reason Comments Spirometry Specialty Diagnoses / Procedures Referred By Contac t Referred To Contact [facility] Diagnoses Chronic obstructive pulmonary disease, unspecified COPD type (HCC) Lung nodule Procedures LUNG DIFFUSION CAPACITY (DLCO) DIFFUSING CAPACITY Verito Whelan MD [address] [place] [address] [facility] [address] [place] [address] Referral ID Status Reason Start Date Expiration Date V isits Requested Visits Authorized [id number] Closed Auto-Generate d Referral 11/09/2021 10/11/2022 1 1 Specialty Diagnoses / Procedures Referred By Contac t Referred To Contact [facility] Diagnoses Chronic obstructive pulmonary disease, unspecified COPD type (HCC) Lung nodule Procedures SPIROMETRY WITH DILATOR IF OBSTRUCTED BRNCDILAT RSPSE SPMTRY PRE&POST-BRNCDILAT ADMN Verito Whelan MD [address] [place] [address] [facility] [address] [place] [address] Referral ID Status Reason Start Date Expiration Date V isits Requested Visits Authorized [id number] Closed Auto-Generate d Referral 11/09/2021 10/11/2022 1 [...] of left lung (HCC) Nina Grigsby MD [address] [place] [address] [place] [address] Kristofer Treat [address] [place] [address] Referral ID Status Reason Start Date Expiration Date V isits Requested Visits Authorized [id number] Authorized 10/16/2022 01/14/2023 99 99 Reason Comments [...] 90 DAY RAD TX Hector Limon MD [address] [place] [address] [place] [address] Hector Limon MD [address] [place] [address] [place] [address] Reason Comments Lung Cancer Treatment visit Reason [...] STEM W/O W/CONTRAST MATERIAL Renetta Ponce MD [address] [place] [id number] [facility] [place] [address] Referral ID Status Reason Start Date Expiration Date V isits Requested Visits Authorized [id number] Closed Auto-Generate d Referral 10/26/2021 11/18/2021 1 1 Reason Comments Follow Up Pet scan results Specialty Diagnoses / Procedures Referred By Contac t Referred To Contact Ent - Otolaryngology Diagnoses Tonsillar mass Procedures CONSULT TO ENT OFFICE/OUTPATIENT [facility] 60-74 MINUTES Nina Grigsby MD [address] [place] [address] [place] [address] Referral ID Status Reason Start Date Expiration Date V isits Requested Visits Authorized [id number] Closed PCP Requested Referral 05/13/2023 05/12/2024 1 [...] NEW HIGH MDM 60-74 MINUTES Patricia Miller, CONCERT MANAGER.TYPEWRITER TESTER [address] [place] [address] [place] [address] [address] [place] [address] Referral ID Status Reason Start Date Expiration Date V isits Requested Visits Authorized [id number] Closed PCP Requested Referral 05/15/2023 05/14/2024 1 1 Reason Comments Care Coordination TSH Result Reason Comments Nutrition Assessment No show Reason Onset Date Comments Refill Request 10/20/2023 Specialty Diagnoses / Procedures Referred By Contac t Referred To Contact Hematology / HEMATOLOGY/ONCOLOGY Diagnoses Follow-up exam 4 week follow up - Lumakras oral med Procedures OFFICE/OUTPATIENT ESTABLISHED HIGH MDM 40 MIN EST PATIENT Enrique Esposito, CONCERT MANAGER.TYPEWRITER TESTER [address] [place] [address] Nina Grigsby MD [address] [place] [address] [place] [address] Referral ID Status Reason Start Date Expiration Date V isits Requested Visits Authorized [id number] Authorized 10/20/2023 07/20/2024 99 99 Reason Comments [...] 10 MIN EST PATIENT Enrique Esposito L, CONCERT MANAGER.TYPEWRITER TESTER [address] [place] [address] Nina Grigsby MD [address] [place] [address] Reason Comments Care Coordination Call Request Reason Comments Care Coordination Appointments Specialty Diagnoses / Procedures Referred By Contac t Referred To Contact Hospice & Palliative Medicine / PALLIATIVE MEDICINE Diagnoses 3 month follow up Procedures OFFICE/OUTPATIENT ESTABLISHED HIGH MDM 40 MIN EST PATIENT Estella Fish, CONCERT MANAGER.TYPEWRITER TESTER [address] [place] [address] Estella Fish, CONCERT MANAGER.TYPEWRITER TESTER [address] [place] [address] Reason Comments Orders Reason Comments Research IRB [id number] Case11 [id number] Informed Consent Reason Onset Date Comments Simulation Request Form 12/02/2023 Consult Specialty Diagnoses / Procedures Referred By Contac t Referred To Contact Radiation Oncology / RADIATION ONCOLOGY Diagnoses New pain Procedures EST PATIENT NEW PROBLEM Pcp, No, CONCERT MANAGER Hector Limon MD [address] [place] [address] Referral ID Status Reason Start Date Expiration Date V isits Requested Visits Authorized [id number] Authorized 12/02/2023 07/20/2024 99 99 Reason Comments [...] NEW LUNG CANCER Nina Grigsby MD [address] [place] [address] [place] [address] [place] [address] Referral ID Status Reason Start Date Expiration Date Visits Re quested Visits Authorized [id number] Closed 02/20/2024 07/20/2024 1 1 Specialty Diagnoses [...] MDM 10 MIN EST PATIENT Enrique Esposito, CONCERT MANAGER.TYPEWRITER TESTER [address] [facility] [place] [address] Nina Grigsby MD [address] [place] [address] Reason Comments Radiology NM Specialty Diagnoses / Procedures Referred By Contac t Referred To Contact MOLECULAR & FUNCTIONAL IMAGING Diagnoses 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 Swelling of arm Cancer associated pain Procedures NM PET/CT SKULL-THIGH SUBSEQUENT PET IMAGING CT ATTENUATION SKULL BASE MID-THIGH Yusef Pandya, AMRITA [address] [place] [address] [place] [address] Molecular & Functional Imaging [address] [place] [address] Referral ID Status Reason Start Date Expiration Date V isits Requested Visits Authorized [id number] Closed Auto-Generate d Referral 02/03/2024 03/04/2025 1 1 Specialty Diagnoses / Procedures Referred By Contac t Referred To Contact RADIATION ONCOLOGY Diagnoses Malignant neoplasm of upper lobe of left lung (HCC) 15 FX plus sim IMRT Procedures CT SIM PLANNING RADIATION ONCOLOGY THER RAD SIMULAJ-AIDED FIELD SETTING COMPLEX INTENSITY MODULATED RADIATION TX DLVR COMPLEX 15 FX plus sim IMRT eHctor Limon MD [address] [place] [address] [place] [address] Paul Mendez [address] [place] [address] Referral ID Status Reason Start Date Expiration Date Visits Requested Visits Authorized [id number] Authorized PCP Requested Referral 12/03/2023 06/03/2024 16 16 Specialty Diagnoses / Procedures [facility] Referred To Contact MOLECULAR & FUNCTIONAL IMAGING Diagnoses 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) Procedures NM PET/CT SKULL-THIGH SUBSEQUENT PET IMAGING CT ATTENUATION SKULL BASE MID-THIGH Nina Grigsby MD [address] [place] [address] [place] [address] Molecular & Functional Imaging [address] [place] [address] Referral ID Status Reason Start Date Expiration Date V isits Requested Visits Authorized [id number] Closed Auto-Generate d Referral 11/04/2023 12/03/2024 1 1 Specialty Diagnoses / Procedures [facility] By [facility] Referred To Contact CT IMAGING Diagnoses 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) Procedures CT CHEST W IVCON DIAGNOSTIC COMPUTED TOMOGRAPHY THORAX W/CONTRAST Nina Grigsby MD [address] [place] [address] [place] [address] [facility] [place] [address] Referral ID Status Reason Start Date Expiration Date V isits Requested Visits Authorized [id number] Closed Auto-Generate d Referral 10/20/2023 11/18/2024 1 1 Referral ID Status Reason Start Date Expiration Date V isits Requested Visits Authorized [id number] Closed Auto-Generate d Referral 08/25/2023 09/23/2024 1 1 Reason Comments Care Coordination Compression Sleeve Reason Comments Care Coordination Emergency Room Call Back; Follow Up Appointment Reason Comments Care Coordination ER Referral ID Status Reason Start Date Expiration Date V isits Requested Visits Authorized [id number] Closed Auto-Generate d Referral 04/22/2023 05/21/2024 [address] Specialty Diagnoses / Procedures Referred By Contac t Referred To Contact MOLECULAR & FUNCTIONAL IMAGING Diagnoses Malignant neoplasm of unspecified part of unspecified bronchus or lung (HCC) Procedures NM PET/CT SKULL-THIGH SUBSEQUENT PET IMAGING CT ATTENUATION SKULL BASE MID-THIGH Patricia Miller, CONCERT MANAGER.TYPEWRITER TESTER [address] [place] [address] [place] [address] Molecular & Functional Imaging [address] [place] [address] Referral ID Status Reason Start Date Expiration Date V isits Requested Visits Authorized [id number] Closed Auto-Generate d Referral 01/07/2023 02/06/2024 1 1 Specialty Diagnoses / Procedures Referred By Contac t Referred To Contact MOLECULAR & FUNCTIONAL IMAGING Diagnoses Lung nodules Procedures NM PET/CT SKULL-THIGH SUBSEQUENT PET IMAGING CT ATTENUATION SKULL BASE MID-THIGH Nina Grigsby MD [address] [place] [address] [place] [address] Molecular & Functional Imaging [address] [place] [address] Referral ID Status Reason Start Date Expiration Date V isits Requested Visits Authorized [id number] Closed Auto-Generate d Referral 09/23/2022 10/23/2023 [address] Specialty Diagnoses / Procedures Referred By Contac t Referred To Contact CT IMAGING Diagnoses Malignant neoplasm of upper lobe of left lung (HCC) Procedures CT ABD/PEL W IVCON CT ABD & PELVIS W/CONTRAST Nina Grigsby MD [address] [place] [address] [place] [address] Ct [facility] [place] [address] Referral ID Status Reason Start Date Expiration Date V isits Requested Visits Authorized [id number] Closed Auto-Generate d Referral 08/20/2022 09/19/2023 1 1 Specialty Diagnoses / Procedures Referred By Contac t Referred To Contact CT IMAGING Diagnoses Malignant neoplasm of unspecified part of unspecified bronchus or lung (HCC) Procedures CT CHEST W IVCON DIAGNOSTIC COMPUTED TOMOGRAPHY THORAX W/CONTRAST Hector Limon MD [address] [place] [address] [place] [address] [place] [address] Referral ID Status Reason Start Date Expiration Date V isits Requested Visits Authorized [id number] Closed Auto-Generate d Referral 06/11/2022 07/11/2023 1 1 Reason Comments Radio Gen RMP Specialty Diagnoses / Procedures Referred By Contac t Referred To Contact Radiation Oncology / RADIATION ONCOLOGY Diagnoses Malignant neoplasm of upper lobe, left bronchus or lung SIM/JEROME/Chest no contrast Procedures SIMULATION JOSE IMRT 30 fractions Hector Limon MD [address] [place] [address] [place] [address] Hector Limon MD [address] [place] [address] [place] [address] Referral ID Status Reason Start Date Expiration Date Visits Re quested Visits Authorized [id number] Closed 03/14/2022 07/20/2022 99 99 Goals (unrecognized section and content) Goals may [...] BE BASED ON THE PRIMARY CLINICAL RECORDS. [facility]. provides no warranty or guarantee of the accuracy or completeness of information in this document.
--- NOTE | 2024-04-22 23:29 | PC.NURSE ---
patient arrives to the ER mottled and dusky. breathing treatment around neck. patient is restless and tried to climb out of bed. Family and hospice did not accomany patient to ER. Patient was placed on 15L high flow NC and tolerating well. Patient was able to relax back and has lessened work of breathing. Color improved.
[2024-04-22 23:33] VITALS: BP 193/118
--- NOTE | 2024-04-22 23:40 | ED_ITS ---
HPI - SOB/Dyspnea General Chief Complaint: Shortness of Breath/Dyspnea Stated Complaint: SOB Time Seen by Provider: 04/22/24 23:07 Source: other Source comment: EMS Mode of arrival: ambulance History of Present Illness HPI Narrative: This 69-year-old male who is on hospice due to end-stage lung cancer is brought to the emergency department by EMS. EMS called stating that they are bringing the patient to the emergency department for stabilization for hospice transfer. Received a call from the patient's hospice nurse. He is currently receiving in- home hospice. She was called to the home earlier today as the patient was outside and had fallen. He was brought back into the house. Upon her arrival he was tachycardic and hypoxic. He was placed back on his oxygen and given 10 mg of OxyContin and oral Ativan. EMS was called due to his unstable vital signs. He was given a DuoNeb treatment by EMS with mild clinical improvement however EMS stated that her and that he was actively dying upon their arrival as his vital signs were erratic with tachycardia and tachypnea then episodes of decreased responsiveness and bradycardia. Upon arrival he was noted to be weak appearing but alert. He declined the need for any additional pain medication. He was hypoxic and was placed on high flow oxygen. He is DNR comfort care. Related Data Home Medications ?Medication ?Instructions ?Recorded ?Confirmed atorvastatin 40 mg tablet 40 mg PO DAILY 07/05/23 04/02/24 cilostazol 100 mg tablet 100 mg PO BID 07/05/23 04/02/24 clopidogrel 75 mg tablet 75 mg PO DAILY 07/05/23 04/02/24 isosorbide mononitrate 30 mg 30 mg PO DAILY 07/05/23 04/02/24 tablet,extended release 24 hr metoprolol tartrate 25 mg tablet 50 mg PO Q12H 07/05/23 04/02/24 sotorasib 320 mg tablet (Lumakras) 960 mg PO Q24H 07/05/23 04/02/24 albuterol sulfate 90 mcg/actuation 2 puff inhalation Q4H PRN 03/28/24 04/02/24 aerosol inhaler shortness of breath or wheezing fentanyl 100 mcg/hr transdermal 1 patch topical Q72H 03/28/24 04/02/24 patch olanzapine 10 mg tablet 10 mg PO .QHS 03/28/24 04/02/24 venlafaxine 37.5 mg 37.5 mg PO .QD 03/28/24 04/02/24 capsule,extended release 24 hr dexamethasone 4 mg tablet 4 mg PO BID 04/03/24 04/03/24 pregabalin 100 mg capsule 100 mg PO TID 04/03/24 04/03/24 trazodone 50 mg tablet 50 mg PO BEDTIME 04/03/24 04/03/24 Previous Rx's ?Medication ?Instructions ?Recorded apixaban 5 mg tablet (Eliquis) 5 mg PO BID #60 tabs 03/30/24 levofloxacin 750 mg tablet 750 mg PO DAILY 5 days #5 tabs 03/30/24 prednisone 20 mg tablet 20 mg PO BID 5 days #10 tabs 03/30/24 Allergies Allergy/AdvReac Type Severity Reaction Status Date / Time No Known Drug Allergies Allergy Verified 04/02/24 02:32 Review of Systems ROS Status of ROS 10 or more systems reviewed and unremark able except as noted in history and below [facility] Medical History (Updated 04/23/24 @ 01:34 by Marii Car MD) Lung cancer ?C34.90 - Malignant neoplasm of unspecified part of unspecified bronchus or lung (ICD-10) Pneumonia ?J18.9 - Pneumonia, unspecified organism (ICD-10) Pulmonary emboli ?I26.99 - Other pulmonary embolism without acute cor pulmonale (ICD-10) Mass of tongue ?K14.8 - Other diseases of tongue (ICD-10) HLD (hyperlipidemia) ?E78.5 - Hyperlipidemia, unspecified (ICD-10) COPD (chronic obstructive pulmonary disease) ?J44.9 - Chronic obstructive pulmonary disease, unspecified (ICD-10) Metastatic non-small cell lung cancer ?C34.90 - Malignant neoplasm of unspecified part of unspecified bronchus or lung (ICD-10) History of pulmonary embolism ?Z86.711 - Personal history of pulmonary embolism (ICD-10) CAD (coronary artery disease) ?I25.10 - Atherosclerotic heart disease of [place] coronary artery without angina pectoris (ICD-10) PAD (peripheral artery disease) ?I73.9 - Peripheral vascular disease, unspecified (ICD-10) Surgical History (Updated 03/28/24 @ 11:54 by Shaikh Marium MD) H/O pneumonectomy ?Z98.890 - Other specified postprocedural states (ICD-10) ?Z90.2 - Acquired absence of lung [part of] (ICD-10) Hx of CABG ?Z95.1 - Presence of aortocoronary bypass graft (ICD-10) Social History (Updated 03/28/24 @ 11:55 by Shaikh Marium MD) Within the past year, how often did you have a drink containing alcohol: monthly or less Within the past year, how many standard drinks containing alcohol did you have on a typical day: 1 or 2 Within the past year, how often did you have six or more drinks on one occasion: never Total score: 0 Score interpretation: A score less than 4 is consistent with normal alcohol consumption. Smoking status: Former smoker Non-prescribed substance use: denies use Highest level of school completed/degree received: high school graduate Little interest or pleasure in doing things: several days Feeling down, depressed, or hopeless: not at all Exam Narrative Exam Narrative: Vital signs and Nursing Notes reviewed: Patient is tachycardic with elevated blood pressure, he is tachypneic with a respiratory to 32 and hypoxic with pulse ox of 89% General: Awake, alert, able to speak 2-3 sentences, chronically ill-appearing cachectic adult male, mild to moderate respiratory difficulty noted upon arrival HEENT: Normocephalic, superficial abrasion to the vertex of the scalp Chest: Diminished lung sounds on the right lung, diffuse coarse rhonchi with mild respiratory difficulty upon arrival, patient has a large midline sternotomy incision CVS: Tachycardic at 107 upon arrival ABD: Soft, nondistended, nontender, no rebound guarding or rigidity, bowel sounds are normal, no pulsatile masses appreciated Extremities: Thin extremities with muscle wasting Skin: Normal in appearance without rash,pallor, petechiae or purpura Neuro: No focal deficits Constitutional Vital Signs, click to edit/add: Last Vital Signs Pulse 90 04/23/24 01:20 Resp 10 L 04/23/24 01:20 BP 160/93 H 04/23/24 01:00 Pulse Ox 95 04/23/24 01:20 O2 Del Method Nasal Cannula 04/23/24 00:59 O2 Flow Rate 4 04/23/24 00:59 Course Vital Signs Vital signs: Vital Signs Pulse Rate 107 H 04/22/24 23:08 Respiratory Rate 32 H 10/03/24 23:08 Blood Pressure 235/158 H 04/22/24 23:08 Pulse Oximetry 89 L 04/22/24 23:08 Oxygen Delivery Method Nonrebreather 04/22/24 23:08 Pulse Rate 90 04/23/24 01:20 Respiratory Rate 10 L 04/23/24 01:20 Blood Pressure 160/93 H 04/23/24 01:00 Pulse Oximetry 95 04/23/24 01:20 Oxygen Delivery Method Nasal Cannula 04/23/24 00:59 Oxygen Delivery Flow Rate 4 04/23/24 00:59 MDM - SOB/Dyspnea MDM Narrative Medical decision making narrative: This 69-year-old male who is currently in hospice and DNR comfort care due to history of lung cancer is brought to the emergency department at his request by EMS from home. The patient was outside earlier today and fell. His son brought him inside and called the hospice nurse who came to the house and administered pain medication and anxiolytics to the patient. EMS was called to bring the patient to the hospital for stabilization due to the fact that his vital signs were unstable and he was hypoxic. Upon arrival he was noted to be hypoxic and was placed on high flow oxygen. He had been given a DuoNeb treatment by EMS. According to EMS his pulse was erratic and fast and then slow and they thought that he may be imminently dying. He did not appear to be imminently dying in emergency department and was given a dose of morphine, gentle hydration and a 1 view chest x-ray was ordered due to the history of falling and shortness of breath. The x-ray showed a large right pneumothorax. This was discussed with the patient who verbalized understanding and was agreeable to a chest tube. Chest tube was placed in the right anterior chest wall with improvement in the pneumothorax. He has had a lobectomy on the right which is likely contributing to the fact that full expansion of the right lung is difficult. His vital signs did improve after the chest x-ray was placed and he felt that he could breathe better. I did discuss this with Dr. Coto who agreed to manage the chest tube. The case was discussed with the hospitalist service and the patient is excepted for admission. The hospitalist requested routine labs to be ordered and a CBC and comprehensive metabolic profile was ordered. His white count is 9.7. Hemoglobin is also 9.7. His potassium is mildly low at 3 but the remainder of his electrolytes are normal. The hospice nurse was updated regarding his admission and hospice will reevaluate him after discharge. Medical Records Medical records narrative: The [place] [id number] XRay Report Signed Patient: CRISTAL BARRY MR#: [id number] : 1955 Acct:[id number] Age/Sex: 69 / M ADM Date: 04/22/24 Loc: ER Attending Dr: Ordering Physician: Marii Car Date of Service: 04/22/24 Procedure(s): XR chest 1V Accession Number(s): [id number] cc: Marii Car; ENRIQUE ESPOSITO~ [facility] [place] [id number] Patient Name: CRISTAL BARRY MRN: [id number] date: 1955 Sex: M Assigned Patient Location: ER Current Patient Location: ER Accession/Order Number: [id number] Exam Date: 04/22/2024 23:58 Report Date: 04/23/2024 00:39 At the request of: MARII CAR Procedure: XR chest 1V EXAMINATION:XR chest 1V INDICATION:SOB COMPARISON:06/09/2024 chest x-ray TECHNIQUE:A single frontal view of the chest is submitted. FINDINGS: There is a large right pneumothorax. There is right to left mediastinal shift tension pneumothorax. Airspace disease is present in the right lung and may be due to atelectasis from the large pneumothorax. There is an acute fracture of the right seventh rib. The left lung is clear. There is no costophrenic angle blunting. XR/XR chest 1V IMPRESSION: Large right pneumothorax with right to left midline shift. Acute fracture of the right seventh rib. Critical result findings were notified by telephone and discussed withMarii Car on 04/23/2024 12:[address] Lester. The clinician expressed understanding of these results. Electronically authenticated by: REBECA LESTER Date: 04/23/2024 00:[address] [address] XRay Report Signed Patient: CRISTAL BARRY MR#: [id number] : 1955 Acct:[id number] Age/Sex: 69 / M ADM Date: 04/22/24 Loc: ER Attending Dr: Ordering Physician: Marii Car Date of Service: 04/23/24 Procedure(s): XR chest 1V Accession Number(s): [id number] cc: Marii Car; ENRIQUE ESPOSITO~ [facility] [place] [id number] Patient Name: CRISTAL BARRY MRN: [id number] date: 1955 Sex: M Assigned Patient Location: ER Current Patient Location: ER Accession/Order Number: [id number] Exam Date: 04/23/2024 12:50 Report Date: 04/23/2024 01:22 At the request of: MARII CAR Procedure: XR chest 1V SINGLE VIEW CHEST: 04/23/2024 12:50 PM EDT CLINICAL HISTORY:s/p chst tube placement COMPARISONS: None. TECHNIQUE: Single frontal view of the chest, utilizing portable technique. Portable radiography should be considered a technically compromised study. Strongly consider dedicated PA and lateral chest radiographs, as clinically indicated. FINDINGS: Thin bore chest catheter to right upper lobe. There remains a right sided pneumothorax. No mediastinal shift. Patchy infiltrates and/or atelectasis at base of right upper lobe and right lower lobe. Left lung is clear and expanded. No left pneumothorax. No pleural effusions. Sternotomy. Normal heart size and vasculature. No acute osseous findings. XR/XR chest 1V IMPRESSION: Right pneumothorax with small bore chest tube at right upper lobe with persistent mild to moderate right pneumothorax. Patchy right upper and lower lobe infiltrates. Lab Data Attestation: I reviewed the patient's lab results. Labs: Lab Results 04/23/24 04/23/24 Range/Units 01:15 01:22 WBC 9.7 (4.0-11.0) 10^3/uL RBC 3.23 L (4.70-6.10) 10^6/uL Hgb 9.7 L (14.0-18.0) g/dL Hct 30.8 L (42.0-54.0) % MCV 95.4 H (80.0-94.0) fL MCH 30.0 (25.9-34.0) pg MCHC 31.5 (29.9-35.2) g/dL RDW 14.8 (11.0-15.0) % Plt Count 166 (150-450) 10^3/uL MPV 11.3 (9.5-13.5) fL Sodium 136 (136-145) mmol/L Potassium 3.0 L (3.5-5.1) mmol/L Chloride 98 (98-107) mmol/L Carbon Dioxide 29.4 (21.0-32.0) mmol/L Anion Gap 11.6 BUN 19.0 H (7.0-18.0) mg/dL Creatinine 1.29 (0.70-1.30) mg/dL Est GFR ( Amer) >60 (>=60 mL/min/1.73m^2) Est GFR (Non-Af Amer) 56 L (>=60 mL/min/1.73m^2) BUN/Creatinine Ratio 14.7 Glucose 159 H (74-106) mg/dL Calcium 8.3 L (8.5-10.1) mg/dL Total Bilirubin 0.7 (0.2-1.0) mg/dL AST 23 (15-37) U/L ALT 40 (16-63) U/L Alkaline Phosphatase 77 (46-116) U/L Total Protein 5.7 L (6.4-8.2) g/dL Albumin 2.5 L (3.4-5.0) g/dL Globulin 3.2 g/dL Albumin/Globulin Ratio 0.8 Critical Care Time Critical Care Time Critical Care Time: Yes Total Critical Care Time: 35 Attestation: . Discharge Plan Discharge Chief Complaint: Shortness of Breath/Dyspnea Clinical Impression: Lung cancer, Fall from standing, Pneumothorax, Right rib fracture Patient Disposition: Admitted as Observation Time of Disposition Decision: 01:31 Condition: Fair Procedures ED Procedure Instructions Procedures Procedures: Procedure note: Chest tube insertion; this patient was found to have a large right-sided pneumothorax likely causing his worsening respiratory difficulty. This was discussed with him and placement of a Urasil Thoravent was discussed with him. He consented to the procedure. Timeout was called and an X was placed over his right second rib midclavicular line. The chest tube was placed after the skin was cleaned with Betadine and infiltrated with lidocaine. Patient tolerated procedure well and repeat x-ray showed that the lung was inflating. The patient's pulse ox improved and he stated that he was feeling better.
[2024-04-22 23:48] VITALS: PULSE 66; O2SAT 93
--- NOTE | 2024-04-22 23:53 | XR_ITS ---
The [address] [address] Patient Name: CRISTAL BARRY MRN: [id number] date: 1955 Sex: M Assigned Patient Location: ER Current Patient Location: ER Accession/Order Number: [id number] Exam Date: 04/22/2024 23:58 Report Date: 04/23/2024 00:39 At the request of: CAMMY CAR Procedure: XR chest 1V EXAMINATION:XR chest 1V INDICATION:SOB COMPARISON:06/09/2024 chest x-ray TECHNIQUE:A single frontal view of the chest is submitted. FINDINGS: There is a large right pneumothorax. There is right to left mediastinal shift tension pneumothorax. Airspace disease is present in the right lung and may be due to atelectasis from the large pneumothorax. There is an acute fracture of the right seventh rib. The left lung is clear. There is no costophrenic angle blunting. XR/XR chest 1V IMPRESSION: Large right pneumothorax with right to left midline shift. Acute fracture of the right seventh rib. Critical result findings were notified by telephone and discussed withCammy Car on 04/23/2024 12:[address] Lester. The clinician expressed understanding of these results. Electronically authenticated by: REBECA LESTER Date: 04/23/2024 00:39
[2024-04-23] VITALS (31 sets, daily range): BP systolic 144–177; BP diastolic 60–105; PULSE 74–145; TEMP 36.3–36.7; O2SAT 76–100; BMI 16.1
[2024-04-23] MEDS: 0.9 % SODIUM CHLORIDE 500 ML IV (00:08)
[2024-04-23] MEDS: ONDANSETRON PF 4 MG/2 ML VIAL IV (00:09)
[2024-04-23] MEDS: MORPHINE SULFATE 4 MG/ML VIAL IV ×3 (00:09→20:20)
[2024-04-23] MEDS: LIDOCAINE HCL 1% 100 MG/10 ML MDV INJ (00:30)
--- NOTE | 2024-04-23 00:36 | XR_ITS ---
The [address] [address] Patient Name: CRISTAL BARRY MRN: [id number] date: 1955 Sex: M Assigned Patient Location: ER Current Patient Location: ER Accession/Order Number: [id number] Exam Date: 04/23/2024 12:50 Report Date: 04/23/2024 01:22 At the request of: CAMMY MARKER Procedure: XR chest 1V SINGLE VIEW CHEST: 04/23/2024 12:50 PM EDT CLINICAL HISTORY:s/p chst tube placement COMPARISONS: None. TECHNIQUE: Single frontal view of the chest, utilizing portable technique. Portable radiography should be considered a technically compromised study. Strongly consider dedicated PA and lateral chest radiographs, as clinically indicated. FINDINGS: Thin bore chest catheter to right upper lobe. There remains a right sided pneumothorax. No mediastinal shift. Patchy infiltrates and/or atelectasis at base of right upper lobe and right lower lobe. Left lung is clear and expanded. No left pneumothorax. No pleural effusions. Sternotomy. Normal heart size and vasculature. No acute osseous findings. XR/XR chest 1V IMPRESSION: Right pneumothorax with small bore chest tube at right upper lobe with persistent mild to moderate right pneumothorax. Patchy right upper and lower lobe infiltrates. This report was generated with voice recognition software. Effort has been made to ensure accuracy of this report, however, occasional wording errors may persist. Please contact our office with any questions. Electronically authenticated by: DEIRDRE SHINE Date: 04/23/2024 01:22
[2024-04-23 01:27] LABS: Hematocrit 30.8 % (42.0-54.0); Hemoglobin 9.7 g/dL (14.0-18.0); Mean Corpuscular HGB Conc 31.5 g/dL (29.9-35.2); Mean Corpuscular Volume 95.4 fL (80.0-94.0); Mean Platelet Volume 11.3 fL (9.5-13.5); Platelet Count 166 10^3/uL (150-450); Red Blood Count 3.23 10^6/uL (4.70-6.10); Red Cell Distribution Width 14.8 % (11.0-15.0); White Blood Count 9.7 10^3/uL (4.0-11.0)
[2024-04-23 01:37] LABS: Alanine Aminotransferase 40 U/L (16-63); Albumin Globulin Ratio 0.8; Albumin Level 2.5 g/dL (3.4-5.0); Alkaline Phosphatase 77 U/L (46-116); Anion Gap 11.6; Aspartate Amino Transferase 23 U/L (15-37); BUN Creatinine Ratio 14.7; Bilirubin Total 0.7 mg/dL (0.2-1.0); Calcium 8.3 mg/dL (8.5-10.1); Carbon Dioxide 29.4 mmol/L (21.0-32.0); Chloride 98 mmol/L (98-107); Estimated GFR (African America >60 (>=60 mL/min/1.73m^2); Estimated GFR (Non-African Ame 56 (>=60 mL/min/1.73m^2); Globulin 3.2 g/dL; Glucose 159 mg/dL (74-106); Sodium 136 mmol/L (136-145); Total Protein 5.7 g/dL (6.4-8.2)
[2024-04-23 01:48] LABS: Lymphocytes Absolute Manual 0.29 10^3/uL (1.20-3.80); Monocytes Absolute Manual 0.19 10^3/uL (0.30-0.80); Segmented Neut Absolute Manual 9.21 10^3/uL (1.4-6.5)
[2024-04-23 01:52] LABS: Hypochromasia 1+
--- OUTSIDE RECORDS SUMMARY | 2024-04-23 02:08 | XMS_ITS | CCD ---
Author Organization [facility] Care Team Providers Care Pre K Teacher Name Role Phone UNKNOWN, PROVIDER Admitting Unavailable UNKNOWN, PROVIDER Attending Unavailable CHRISTINA AZUL Referring Unavailable CHRISTINA AZUL Primary Care Unavailable Adalgisa KHOURY, Heba Unavailable Christina Azul MD Primary Care Provider Verito Whelan MD Unavailable Seb KHOURY, Nina R Unavailable [phone] Paul DRAWING IN MACHINE TENDER HELPER.Sher VILLEDAy Unavailable Fredi PAYNE, Denita Unavailable [phone] Adalgisa KHOURY, Heba Unavailable Christina Azul MD Primary Care Provider [phone] Tip KHOURY, Verito Unavailable [phone] Seb KHOURY, Nina R Unavailable [phone] Paul DRAWING IN MACHINE TENDER HELPER.Sher VILLEDAy Unavailable [phone] Fredi PAYNE, Denita Unavailable AMRITA Swann Attending Provider [phone] NO FAMILY, PHYSICIAN Primary Care Provider Unava ilable Adalgisa KHOURY, Heba Unavailable Christina Azul MD Primary Care Provider Fredi PAYNE, Denita Unavailable Christina Azul MD Primary Care Provider Adalgisa KHOURY, Heba Unavailable Christina Azul MD Primary Care Provider Verito Whelan MD Unavailable Seb KHOURY, Nina Naranjo Unavailable Paul DRAWING IN MACHINE TENDER HELPERPatricia FOSTER Unavailable Fredi PAYNE, Denita Unavailable LOVE [...] Unavailable MD Christina Azul Primary Care Provider Saffle, DRAWING IN MACHINE TENDER HELPER Sapna Guzmán Emergency Provider [phone] Rohan ROBLES, Minna Unavailable Unavailable Karla, Dr. Perry Attending Unavailable Unavailable Primary Care Provider Unavailrome Diana MD, Heba Unavailable Fredi RN, Denita Unavailable Melaniriddewey DRAWING IN MACHINE TENDER HELPER.ACCESS LEAD, Estella Kinsey Unavailable Willie PAYNE, Julieth Beatty Unavailable Unavail able Cate DRAWING IN MACHINE TENDER HELPER.ACCESS LEAD, Enrique Beatty Primary Care Provider Cate DRAWING IN MACHINE TENDER HELPER.ACCESS LEAD, Enrique Beatty Primary Care Provider NON STAFF Primary Care Provider UnavailMD John Oliveira Emergency Provider Cate DRAWING IN MACHINE TENDER HELPER.ACCESS LEADEnrique Primary Care Provider DO Abel De La Cruz Emergency Provider [phone] DO Shahbaz Lehman Emergency Provider MD Deborah Lamar Emergency Provider [phone] MD Jair Nichols Admit Provider MD Jair Nichols Attending Provider [phone] DO Davion Allen Other Provider Jorge Alberto KHOURY, Christina Corbett Primary Care Provider Cate, GRANITE COUNTERTOP INSTALLER Enrique L Attending Unavailable Cate, GRANITE COUNTERTOP INSTALLER Enrique L Attending Unavailable Cate, GRANITE COUNTERTOP INSTALLER Enrique L Admitting Unavailable Cate, GRANITE COUNTERTOP INSTALLER Enrique L Attending Unavailable Cate, GRANITE COUNTERTOP INSTALLER Enrique L Attending Unavailable Cate, GRANITE COUNTERTOP INSTALLER Enrique L Attending Unavailable Cate, GRANITE COUNTERTOP INSTALLER Enrique L Attending Unavailable Cate, GRANITE COUNTERTOP INSTALLER Enrique L Attending Unavailable Cate, GRANITE COUNTERTOP INSTALLER Enrique L Attending Unavailable Cate, GRANITE COUNTERTOP INSTALLER Enrique L Attending Unavailable Cate, GRANITE COUNTERTOP INSTALLER Enrique L Attending Unavailable Cate, GRANITE COUNTERTOP INSTALLER Enrique L Attending Unavailable Cate, GRANITE COUNTERTOP INSTALLER Enrique L Attending Unavailable Cate, GRANITE COUNTERTOP INSTALLER Enrique L Attending Unavailable Cate, GRANITE COUNTERTOP INSTALLER Enrique L Attending Unavailable Cate, GRANITE COUNTERTOP INSTALLER Enrique L Attending Unavailable Cate, GRANITE COUNTERTOP INSTALLER Enrique L Attending Unavailable Cate, GRANITE COUNTERTOP INSTALLER Enrique L Attending Unavailable NON STAFF Primary Care Unavailable Shahbaz Lehman Admitting Unavailable KeisterShahbaz Attending Unavailable NON STAFF Primary Care Unavailable TupaAbel Admitting Unavailable TupaAbel Attending Unavailable Magdalena, Jair Attending Unavailable Davion Allen Consulting Unavailable NON STAFF Primary Care Unavailable Magdalena, Jiar Admitting Unavailable NON STAFF Primary Care Unavailable John Dominguez Admitting Unavailable John Dominguez Attending Unavailable CATE, ENRIQUE RAMOS Primary Care Unavailable NINA GRIGSBY Attending Unavailable CATE, ENRIQUE RAMOS Referring Unavailable CATE, ENRIQUE RAMSO Primary Care Unavailable ESTELLA FISH Referring Unavailabl e ESTELLA FISH Attending Unavailabl CHRISTINA Mehta Primary Care Unavailable NINA GRIGSBY Referring Unavailable CATE, ENRIQEU RAMOS Primary Care Unavailable Hector LIMON Referring [...] RAMOS Primary Care Unavailable ENGELER, G ERASTO Attending Unavailable CATE, ENRIQUE RAMOS Referring Unavailable CATE, ENRIQUE RAMOS Primary Care Unavailable CATE, ENRIQUE RAMOS Primary Care Unavailable CHRISTINA AZUL Primary Care Unavailable NINA GRIGSBY Attending Unavailable CHRISTINA AZUL Primary Care Unavailable NINA GRIGSBY Referring Unavailable ESTELLA FISH Attending Unavailabl e CHRISTINA AZUL Primary Care Unavailable NINA GRIGSBY Attending Unavailable AZUL, [facility] Primary Care Unavailable NINA GRIGSBY Referring Unavailable AZUL, [facility] Primary Care Unavailable NINA GRIGSBY Referring Unavailable AZUL, [facility] Primary Care Unavailable NINA GRIGSBY Referring Unavailable Hector LIMON Referring Unavailable CATE, ENRIQUE RITA Primary Care Unavailable Hector LIMON Referring Unavailable CATE, ENRIQUE RITA Primary Care Unavailable CATE, ENRIQUE RITA Primary Care Unavailable NINA GRIGSBY Attending Unavailable CATE, ENRIQUE RAMOS Referring Unavailable CATE, ENRIQUE RITA Primary Care Unavailable [facility], [facility] Primary Care Unavailable [facility] Primary Care Unavailable Hector LIMON Attending Unavailable [facility], [facility] Primary Care Unavailable [facility], [facility] Primary Care Unavailable [facility], [facility] Primary Care Unavailable NINA GRIGSBY Attending Unavailable [facility], [facility] Primary Care Unavailable [facility], [facility] Primary Care Unavailable Hector LIMON Attending Unavailable [facility], [facility] Primary Care Unavailable PATRICIA MILLER Attending Unavailable AZ[facility], [facility] Primary Care Unavailable NINA GRIGSBY Referring Unavailable CATE, ENRIQUE RITA Primary Care Unavailable CATE, ENRIQUE RITA Primary Care Unavailable DOMINIQUE MURPHY Attending Unavailabl e CATE, ENRIQUE RITA Primary Care Unavailable NNIA GRIGSBY Attending Unavailable CATE, ENRIQUE RAMOS Referring [...] CATE, ENRIQUE RITA Primary Care Unavailable CATE, NERIQUE RITA Primary Care Unavailable Hector LIMON Attending Unavailable CATE, ENRIQUE RITA Primary Care Unavailable NINA GRIGSBY [facility] Unavailable PATRICIA MILLER Attending Unavailable AZUL, [facility] Primary Care Unavailable Hector LIMON Attending Unavailable [facility], [facility] Primary Care Unavailable NINA GRIGSBY Referring Unavailable CATE, ENRIQUE RITA Primary Care Unavailable NYDIA PARKS Attending Unavailable [facility], [facility] Primary Care Unavailable CATE, ENRIQUE RITA Primary Care Unavailable Hector LIMON Referring Unavailable CATE, ENRIQUE RITA Primary Care Unavailable Hector LIMON Attending Unavailable CATE, ENRIQUE RITA Primary Care Unavailable Hector LIMON Attending Unavailable ESTELLA FISH Attending Unavailabl e ESTELLA FISH Referring Unavailabl e CATE, ENRIQUE RITA Primary Care Unavailable NYDIA PARKS Attending Unavailable [facility] Primary Care Unavailable [facility], [facility] Primary Care Unavailable CATE, ENRIQUE RITA [...] CATE, ENRIQUE RITA Primary Care Unavailable AZUL [facility] Primary Care Unavailable NINA GRIGSBY Referring Unavailable DAMON TSE [facility]ending [facility] Unavailable Hector LIMON [facility]ending [facility] Care Unavailable YUSEF PANDYA Referring Unavailable CATE, ENRIQUE RITA Primary Care Unavailable Hector LIMON [facility]ending [facility] Care Unavailable Medications Current Medications Medication Drug Class(es) Dates Sig (Normalized) Sig (Original) [id number] 200 actuat albuterol 0.09 mg/actuat metered dose [...] on above: Take 2 tablets by mo [facility] every 6 hours. acetaminophen 325 mg [...] 4 days. TAKE 2 TABLETS by mo [facility] today, THEN take 1 TABLET once [...] Comment on above: [facility]. Ciprofloxacin-Dexametha sone (Ciprodex) 0.3-0.1 [...] Comment on above: Take 1 capsule by [facility] twice daily for 30 days. Take 1 capsule by [facility] three times a day for 3 days, THEN 2 capsules three times a day for 3 days, THEN 3 capsules three times a day for 24 days. Take 1 capsule by [facility] three times a day for 120 days. Take 1 capsule by [facility] three times a day isosorbide dinitrate [...] Comment on above: TAKE 1 TABLET BY [facility] EVERY MORNING and TAKE 1 TABLET [...] 30 days. 180 tablet 11/21/2023 12/21/2023 Discontinued (Grant Administrator Duplicate Med) Start: 06-13-2023 End: 11-21-2023 take 1 tablet by mouth every six hours as needed for pain oxyCODONE IR (ROXICODONE) 5 mg immediate release tablet Indications: Neoplasm related pain Take 1 tablet by mouth every 6 hours as needed for pain for up to 15 days. 60 tablet 10/21/2023 11/05/2023 Discontinued (Grant Administrator Duplicate Med) Start: 06-12-2020 End: 03-28-2021 take [...] up to 15 days. polyethylene glycol 3350 25586 mg powder for oral solution (4 sources) [...] Coronary atherosclerosis; Translations: [Atherosclerotic heart disease of knik coronary artery without angina pectoris] Onset: 2 [...] care home (current) use of aspirin; Translations: [TIRE DEBEADER CURRENT USE OF ASPIRIN] Onset: 3 Episodic Other aftercare (1 source) care home (current) use of antithrombotics/antiplate lets; Translations: [ASSISTED ANTITHROMBOT/ANTIPLATLETS ] Onset: 3 Episodic Other aftercare (1 source) Other joint terminal attack controller (current) drug therapy; Translations: [OTH ASSISTED CURRENT DRUG THERAPY] Onset: 3 Episodic Other [...] Name Value Interpretation Reference Range Facil ity [facility]24 [facility] Normal [facility] CNPNon 04-01-2024 CNPN Normal [facility] Ambulatory Visit Summaryon 0 03-31-2024 Ambulatory Visit Summary Ambulatory Visit Summary CRITSAL GU :1955 Visit Date:03/31/2024 Ambulatory Visit Instructions [...] 10:00 AM EDT With: Enrique Austin Where: [address] [address]- Friday 11:00 AM EDT With: Where: [address] [address]- Medications What How Much When [...] for choosing us for your care. Normal [facility] CNPNon 03-31-2024 CNPN Normal [facility] Family Medicine Office/Clini c Noteon 03-31-2024 Family Medicine Office/Clinic Note Family Medicine Office/Clinic Note Chief Complaint ER f/u HPI Staff Pt presents today for ER followup: Hospital: [facility] Visit date: 03/28/24 & 03/30/24 Symptoms [...] progress notes reviewed. pt continue eliquis. Ordered: [facility] 7 day disch [id number] 2. Lymphedema of arm (I89.0: Lymphedema, not elsewhere classified) left arm is swollen 2 + edema. pt states he had an IV in that arm and the pump beeped all night long. so provider is not sure if this is phlebitis, clot or lymphedema from the cancer. stat order for doppler u/s of left arm faxed to [facility]. Pt will go straight to [facility] for u/s. encouraged him to get a lymphedema sleeve. Ordered: [facility] 7 day disch [id number] 3. Lung cancer (C34.90: Malignant neoplasm of unspecified part of unspecified bronchus or lung) ronchi and wheezing. scheduled to see oncology on 04-08. has PET scan scheduled 04/19 Ordered: [facility] 7 day disch 90226 4. Emphysema lung (J43.9: Emphysema, unspecified) O2 on at 2 liters Ordered: [facility] 7 day disch 78099 5. Pneumonia (J18.9: Pneumonia, unspecified organism) pt continues antibiotics prescribed by hospital Ordered: [facility] 7 day disch [id number] 6. BMI less than 19,adult (Z68.1: Body mass index [BMI] 19.9 or less, adult) pt continue drinking protein shakes Ordered: [facility] 7 day disch [id number] 7. Former smoker (Z87.891: Personal history of nicotine dependence) continue not smoking Ordered: [facility] 7 day disch [id number] Orders: dexamethasone, See Instructions, TAKE 1 TABLET BY MOUTH TWICE DAILY WITH MEALS, # 30 tab(s), Refills(s) 1, Pharmacy: [facility], 169.5, cm, 03/31/24 14:14:00 EDT, Height/Length [...] (COVID-19) mRNA-1273 vaccine 11/15/2020 Recorded Normal [facility] Comment on above: Result Comment: Elec tronically Signed By: Enrique Austin\.br\Date and Time Signed: 03/31/24 15:00 EDT Alanine aminotransferase [En zymatic activity/volume] in Serum or PlasmaOrdered By: Jair Nichols on 03-20-2024 ALT [Catalytic activity/Vol] 9 U/L Normal 7-52 [facility] Comment on above: Performed By: #### M Hector, CMP, CBC ####[place] [id number] Albumin [Mass/volume] in Ser um or Plasma by Bromocresol green (BCG) dye binding methoOrdered By: Jair Nichols on 03-20-2024 Albumin BCG dye [Mass/Vol] 3.3 g/dL Low 3.5-5.7 [facility] Alkaline phosphatase [Enzyma tic activity/volume] in Serum or PlasmaOrdered By: Jair Nichols on 03-20-2024 ALP [Catalytic activity/Vol] 46 U/L Normal 34-104 [facility] Comment on above: Performed By: #### M Hector, CMP, CBC ####[place] [id number] Aspartate aminotransferase [ Enzymatic activity/volume] in Serum or PlasmaOrdered By: Jair Nichols on 03-20-2024 AST [Catalytic activity/Vol] 11 U/L Low 13-39 [facility] Comment on above: Performed By: #### M Hector, CMP, CBC ####[address] Automated basophil %Ordered By: Jair Nichols on 03-20-2024 Basophils/100 WBC (Bld) 0.2 % Normal . [facility] Comment on above: Performed By: #### M G, CMP, CBC ####[place] [id number] [facility] Automated basophil countOrde red By: Jair Nichols on 03-20-2024 Basophils (Bld) [#/Vol] 0.0 10*3/uL Normal 0.0-0.2 [facility] Comment on above: Result Comment: PERF ORMED BY: [facility] [address] [place] [address] PATHOLOGIST BALLASTER ALEX CROWLEY M.D. Performed By: #### M G, CMP, CBC ####[address] Automated blood monocyte cou ntOrdered By: Jair Magdalena on 03-20-2024 Monocytes (Bld) [#/Vol] 0.5 10*3/uL Normal 0.0-0.8 [facility] Comment on above: Performed By: #### M G, CMP, CBC ####[address] Automated eosinophil %Ordere d By: Jair Magdalena on 03-20-2024 Eosinophils/100 WBC (Bld) 0.2 % Normal . [facility] Comment on above: Performed By: #### M G, CMP, CBC ####[address] Automated eosinophil countOr dered By: Jair Magdalena on 03-20-2024 Eosinophils (Bld) [#/Vol] 0.0 10*3/uL Normal 0.0-0.45 [facility] Comment on above: Performed By: #### M G, CMP, CBC ####[address] Automated monocyte %Ordered By: Jair Magdalena on 03-20-2024 Monocytes/100 WBC (Bld) 8.7 % Normal . [facility] Comment on above: Performed By: #### M G, CMP, CBC ####[address] Automated neutrophil %Ordere d By: Jair Magdalena on 03-20-2024 Neutrophils/100 WBC (Bld) 82.3 % Normal . [facility] Comment on above: Performed By: #### M G, CMP, CBC ####[address] Bilirubin.total [Mass/volume ] in Serum or PlasmaOrdered By: Jair Nichols on 03-20-2024 Bilirubin [Mass/Vol] 0.6 mg/dL Normal 0.3-1.0 [facility] Comment on above: Performed By: #### Ike Young CMP, CBC ####[place] [id number] [facility] Calcium [Mass/volume] in Ser um or PlasmaOrdered By: Jairprudence Nichols on 03-20-2024 Calcium [Mass/Vol] 8.8 mg/dL Normal 8.6-10.3 [facility] Comment on above: Performed By: #### Ike Young CMP, CBC ####[address] Carbon dioxide, total [Moles /volume] in Serum or PlasmaOrdered By: Jair Nichols on 03-20-2024 CO2 [Moles/Vol] 25.0 mmol/L Normal 21.0-31.0 [place] Comment on above: Performed By: #### Ike Young CMP, CBC ####[place] [id number] [facility] Chloride [Moles/volume] in S juanpablo or PlasmaOrdered By: Jairadela Nichols on 03-20-2024 Chloride [Moles/Vol] 110 mmol/L High 98-107 [facility] Comment on above: Performed By: #### Ike Young CMP, CBC ####[place] [id number] [facility] Complete Blood Count Auto Di ffon 03-20-2024 Mean Corpuscular HGB Conc 32.8 g/dL Normal 32.5-35.6 [facility] Comment on above: Performed By: #### Ike Young CMP, CBC ####[place] [id number] [facility] NRBC% 0.0 /100{WBC} Normal 0-0.5 [facility] Comment on above: Performed By: #### Ike Young CMP, CBC ####[place] [id number] [facility] Comprehensive Metabolic Pane tim 03-20-2024 Albumin [Mass/Vol] 3.3 g/dL Low 3.5-5.7 [facility] Comment on above: Performed By: #### M TEGAN Young, CBC ####[address] Creatinine Clr Calc Pharmacy 58.50 Normal [facility] Comment on above: Performed By: #### M Hector, CMP, CBC ####[address] GFR/1.73 sq M.predicted MDRD (S/P/Bld) [Vol rate/Area] mL/min/{1.73_m2} Normal [facility] Comment on above: Performed By: #### Ike Young CMP, CBC ####[address] Creatinine [Mass/volume] in Serum or PlasmaOrdered By: Jair Nichols on 03-20-2024 Creatinine [Mass/Vol] 0.87 mg/dL Normal 0.70-1.30 [facility] Comment on above: Performed By: #### M Hector, TEGAN, CBC ####[address] Erythrocyte distribution wid th [Ratio] by Automated countOrdered By: Jair Nichols on 03-20-2024 Erythrocyte distribution width (RBC) [Ratio] 13.8 % Normal 12.0-14.8 [facility] Comment on above: Performed By: #### M Hector, CMP, CBC ####[address] Erythrocytes [#/volume] in B lood by Automated countOrdered By: Jair Nichols on 03-20-2024 RBC (Bld) [#/Vol] 3.54 10*6/uL Low 3.90-5.60 [facility] Comment on above: Performed By: #### M Hector, CMP, CBC ####[address] Glucose [Mass/volume] in Ser um or PlasmaOrdered By: Jair Nichols on 03-20-2024 Glucose [Mass/Vol] 101 mg/dL High 70-100 [facility] Comment on above: ADA recommended refe rence rangeRandom Glucose Reference Range is dependent on time and content of last meal. Glucose of more than 200 mg/dL in a nonstressed, ambulatory subject supports the diagnosis of Diabetes Mellitus. Result Comment: [place] om Glucose Reference Range is dependent on time and content of last meal. Glucose of more than 200 mg/dL in a nonstressed, ambulatory subject supports the diagnosis of Diabetes Mellitus. ADA recommended reference range Performed By: #### M Hector, CMP, CBC ####[facility] [id number] Hematocrit [Volume Fraction] of Blood by Automated countOrdered By: Jair Nichols on 03-20-2024 Hematocrit (Bld) [Volume fraction] 33.2 % Low 38.8-50.0 [facility] Comment on above: Performed By: #### M Hector, CMP, CBC ####[facility] [id number] [place] [id number] [facility] Hemoglobin [Mass/volume] in BloodOrdered By: Jair Nichols on 03-20-2024 Hemoglobin (Bld) [Mass/Vol] 10.9 g/dL Low 13.0-17.0 [facility] Comment on above: Performed By: #### M Hector, CMP, CBC ####[facility] [id number] [place], [place] [id number] [facility] Leukocytes [#/volume] correc nani for nucleated erythrocytes in Blood by Automated counOrdered By: Jair Nichols on 03-20-2024 WBC corrected for nucl RBC Auto (Bld) [#/Vol] 5.8 10*3/uL 4.1-10.5 [facility] Leukocytes [#/volume] in Blo od by Automated countOrdered By: Jair Nichols on 03-20-2024 WBC (Bld) [#/Vol] 5.8 10*3/uL Normal 4.1-10.5 [facility] Comment on above: Performed By: #### M Hector, CMP, CBC ####[address] Lymphocytes [#/volume] in Bl ood by Automated countOrdered By: Jair Magdalena on 03-20-2024 Lymphocytes (Bld) [#/Vol] 0.5 10*3/uL Low 1.00-4.8 [facility] Comment on above: Performed By: #### M Hector, CMP, CBC ####[address] Lymphocytes/100 leukocytes i n Blood by Automated countOrdered By: Jair Magdalena on 03-20-2024 Lymphocytes/100 WBC (Bld) 8.6 % Normal . [facility] Comment on above: Performed By: #### M Hector, CMP, CBC ####[address] MCH [Entitic mass] by Automa nani countOrdered By: Jair Magdalena on 03-20-2024 MCH (RBC) [Entitic mass] 30.7 pg Normal 27.5-35.2 [facility] Comment on above: Performed By: #### M Hector, CMP, CBC ####[address] MCHC Auto (RBC) [Mass/Vol]Or dered By: Jair Magdalena on 03-20-2024 MCHC (RBC) [Mass/Vol] 32.8 g/dL 32.5-35.6 [facility] MCV [Entitic volume] by Auto mated countOrdered By: Jair Magdalena on 03-20-2024 MCV (RBC) [Entitic vol] 93.6 fL Normal 83.5-101 [facility] Comment on above: Performed By: #### M G, CMP, CBC ####[address] Magnesium [Mass/volume] in S juanpablo or PlasmaOrdered By: Jair Magdalena on 03-20-2024 Magnesium [Mass/Vol] 1.8 mg/dL Low 1.9-2.7 [facility] Comment on above: Result Comment: PERF ORMED BY: [facility] [address] [place] [address] PATHOLOGIST BALLASTER ALEX CROWLEY M.D. Performed By: #### M G, CMP, CBC ####[facility] [place] [id number] [facility] Neutrophils [#/volume] in Bl ood by Automated countOrdered By: Jair Nichols on 03-20-2024 Neutrophils (Bld) [#/Vol] 4.8 10*3/uL Normal 1.8-7.7 [facility] Comment on above: Performed By: #### M Hector, CMP, CBC ####[place] [id number] No Panel InformationOrdered By: Jair Nichols on 03-20-2024 Estimated GFR (CKD-EPI) > 60.0 mL/Min [facility] Creatinine Clearance (Chem 58.50 [facility] Nucleated erythrocytes [Pres ence] in Blood by Automated countOrdered By: Jair Nichols on 03-20-2024 Nucleated RBC Auto Ql (Bld) 0.0 /100{WBC} 0-0.5 [facility] Platelet mean volume [Entiti c volume] in Blood by Automated countOrdered By: Jair Nichols on 03-20-2024 Platelet mean volume (Bld) [Entitic vol] 9.5 fL Normal 6.6-10.1 [facility] Comment on above: Performed By: #### M G, CMP, CBC ####[place] [id number] [place] [id number] [facility] Platelets [#/volume] in Bloo d by Automated countOrdered By: Jair Nichols on 03-20-2024 Platelets (Bld) [#/Vol] 236 10*3/uL Normal 150-450 [facility] Comment on above: Performed By: #### M G, CMP, CBC ####[place] [id number] Potassium [Moles/volume] in Serum or PlasmaOrdered By: Jair Magdalena on 03-20-2024 Potassium [Moles/Vol] 4.1 mmol/L Normal 3.5-5.1 [facility] Comment on above: Performed By: #### Ike Young CMP, CBC ####[place] [id number] Protein [Mass/volume] in Ser um or PlasmaOrdered By: Jair Magdalena on 03-20-2024 Protein [Mass/Vol] 6.3 g/dL Low 6.4-8.9 [facility] Comment on above: Performed By: #### Ike Young CMP, CBC ####[address] Serum globulin measurement b y calculation (mass/volume)Ordered By: Jair Magdalena on Globulin (S) [Mass/Vol] 3.0 g/dL Normal [facility] Comment on above: Performed By: #### Ike Young CMP, CBC ####[address] Serum or plasma albumin/glob ulin mass ratioOrdered By: Jair Magdalena on 03-20-2024 Albumin/Globulin [Mass ratio] 1.1 {ratio} Normal [facility] Comment on above: Performed By: #### Ike Young CMP, CBC ####[address] Serum or plasma anion gap de terminationOrdered By: Jair Magdalena on 03-20-2024 Anion gap [Moles/Vol] 9.1 mmol/L Normal 6.0-15.0 [facility] Comment on above: Performed By: #### Ike Young CMP, CBC ####[place] [id number] [facility] Sodium [Moles/volume] in Ser um or PlasmaOrdered By: Jair Magdalena on 03-20-2024 Sodium [Moles/Vol] 140 mmol/L Normal 136-145 [facility] Comment on above: Performed By: #### M TEGAN Young, CBC ####[facility] Cma[address] Urea nitrogen [Mass/volume] in Serum or PlasmaOrdered By: Jair Nichols on 03-20-2024 Urea nitrogen [Mass/Vol] 20 mg/dL Normal 7-25 [facility] Comment on above: Performed By: #### M G, CMP, CBC ####[facility] [place] [address] [place] Activated partial thrombopla stin time (aPTT) in platelet poor plasma by coagulation aOrdered By: Shahbaz Lehman on 03-19-2024 aPTT Coag (PPP) [Time] 29.4 s 25.1-36.5 [facility] Comment on above: A hematocrit value g reater than 55% may lead to inaccurate results in coagulation testing. Patients having hematocrit values >55% require a special collection tube for coagulation studies. Please contact the laboratory at [phone] for redraw instructions. Alanine aminotransferase [En zymatic activity/volume] in Serum or PlasmaOrdered By: Shahbaz Lehman on 03-19-2024 ALT [Catalytic activity/Vol] 12 U/L Normal 7-52 [facility] Comment on above: Performed By: #### H S TROP, MG, PT, CMP, PTT, TSH3, CBC #### [facility] [address] [place] [address] [place] Albumin [Mass/volume] in Ser um or Plasma by Bromocresol green (BCG) dye binding methoOrdered By: Shahbaz Lehman on 03-19-2024 Albumin BCG dye [Mass/Vol] 3.7 g/dL 3.5-5.7 [facility] Alkaline phosphatase [Enzyma tic activity/volume] in Serum or PlasmaOrdered By: Shahbaz Lehman on 03-19-2024 ALP [Catalytic activity/Vol] 47 U/L Normal 34-104 [facility] Comment on above: Performed By: #### H S TROP, MG, PT, CMP, PTT, TSH3, CBC #### [facility] [address] [place] [address] [place] Aspartate aminotransferase [ Enzymatic activity/volume] in Serum or PlasmaOrdered By: Shahbaz Lehman on 03-19-2024 AST [Catalytic activity/Vol] 16 U/L Normal 13-39 [facility] Comment on above: Performed By: #### H S TROP, MG, PT, CMP, PTT, TSH3, CBC #### [address] Automated basophil %Ordered By: Shahbaz Lehman on 03-19-2024 Basophils/100 WBC (Bld) 0.5 % Normal . [facility] Comment on above: Performed By: #### H S TROP, MG, PT, CMP, PTT, TSH3, CBC #### [address] Automated basophil countOrde red By: Shahbaz Lehman on 03-19-2024 Basophils (Bld) [#/Vol] 0.0 10*3/uL Normal 0.0-0.2 [facility] Comment on above: Result Comment: PERF ORMED BY: [place] [address] PATHOLOGIST BALLASTER ALEX CROWLEY M.D. Performed By: #### H S TROP, MG, PT, CMP, PTT, TSH3, CBC #### [address] Automated blood monocyte cou ntOrdered By: Shahbaz Lehman on 03-19-2024 Monocytes (Bld) [#/Vol] 0.6 10*3/uL Normal 0.0-0.8 [facility] Comment on above: Performed By: #### H S TROP, MG, PT, CMP, PTT, TSH3, CBC #### [address] Automated eosinophil %Ordere d By: Shahbaz Lehman on 03-19-2024 Eosinophils/100 WBC (Bld) 1.2 % Normal . [facility] Comment on above: Performed By: #### H S TROP, MG, PT, CMP, PTT, TSH3, CBC #### [address] Automated eosinophil countOr dered By: Shahbaz Lehman on 03-19-2024 Eosinophils (Bld) [#/Vol] 0.1 10*3/uL Normal 0.0-0.45 [facility] Comment on above: Performed By: #### H S TROP, MG, PT, CMP, PTT, TSH3, CBC #### [facility] [address] [place] [address] Automated monocyte %Ordered By: Shahbaz Lehman on 03-19-2024 Monocytes/100 WBC (Bld) 8.4 % Normal . [facility] Comment on above: Performed By: #### H S TROP, MG, PT, CMP, PTT, TSH3, CBC #### [facility] [address] [place] [address] Automated neutrophil %Ordere d By: Shahbaz Lehman on 03-19-2024 Neutrophils/100 WBC (Bld) 79.6 % Normal . [facility] Comment on above: Performed By: #### H S TROP, MG, PT, CMP, PTT, TSH3, CBC #### [facility] [address] [place] [address] Bilirubin Test strip Ql (U)O rdered By: Shahbaz Lehman on 03-19-2024 Bilirubin Ql (U) Negative Negative [place] Bilirubin.total [Mass/volume ] in Serum or PlasmaOrdered By: Shahbaz Lehman on 03-19-2024 Bilirubin [Mass/Vol] 0.4 mg/dL Normal 0.3-1.0 [facility] Comment on above: Performed By: #### H S TROP, MG, PT, CMP, PTT, TSH3, CBC #### [address] head/brain wo conon 03-19 CT head/brain wo con [facility] [place] [address] CT Scan Report Signed Patient: Cristal Gu MR#: [id number] : 1955 Acct:[id number] Age/Sex: 69 / M ADM Date: 03/19/24 Loc: ER Room: Type: [facility] ER Attending Dr: Copies to: Shahbaz [...] Mark Jr., D.O.03/19/2024 11:52 AM Dictation Location: [place] [address] Transcribed By: [facility] 03/19/24 1152 Dictated By: Star Mark Jr, DO 03/19/24 1149 Signed By: 03/19/24 1152 Normal [facility] Calcium [Mass/volume] in Ser um or PlasmaOrdered By: Shahbaz Lehman on 03-19-2024 Calcium [Mass/Vol] 8.9 mg/dL Normal 8.6-10.3 [facility] Comment on above: Performed By: #### H S TROP, MG, PT, CMP, PTT, TSH3, CBC #### [facility] [address] Capillary blood glucose jerson urement by glucometer (mass/volume)Ordered By: Shahbaz Lehman on 03-19-2024 Glucose [Mass/Vol] 85 mg/dL Normal [facility] Comment on above: Random Glucose Refer ence Range is dependent on time and content of last meal. Glucose of more than 200 mg/dL in a nonstressed, ambulatory subject supports the diagnosis of Diabetes Mellitus. Result Comment: [place] om Glucose Reference Range is dependent on time and content of last meal. Glucose of more than 200 mg/dL in a nonstressed, ambulatory subject supports the diagnosis of Diabetes Mellitus. PERFORMED BY: [place] [address] PATHOLOGIST BALLASTER ALEX CROWLEY M.D. Performed By: #### G RHIANNA ####Point of Care testing, Carbon dioxide, total [Moles /volume] in Serum or PlasmaOrdered By: Shahbaz Lehman on 03-19-2024 CO2 [Moles/Vol] 28.6 mmol/L Normal 21.0-31.0 [place] Comment on above: Performed By: #### H S TROP, MG, PT, CMP, PTT, TSH3, CBC #### [address] Chloride [Moles/volume] in S juanpablo or PlasmaOrdered By: Shahbaz Lehman on 03-19-2024 Chloride [Moles/Vol] 102 mmol/L Normal 98-107 [facility] Comment on above: Performed By: #### H S TROP, MG, PT, CMP, PTT, TSH3, CBC #### [address] Color of Urine by AutoOrdere d By: Shahbaz Lehman on 03-19-2024 Color (U) Light-yellow Normal Yellow [facility] Comment on above: Order Comment: Name Collection Type:: Clean-Voided Midstream Performed By: #### U A ####[facility] [place] [address] Complete Blood Count Auto Di ffon 03-19-2024 Mean Corpuscular HGB Conc 33.3 g/dL Normal 32.5-35.6 [facility] Comment on above: Performed By: #### H S TROP, MG, PT, CMP, PTT, TSH3, CBC #### [place] [address] [place] Monocytes/100 WBC (Bld) 19.30 % Normal 0.00-20.00 [facility] Comment on above: Performed By: #### H S TROP, MG, PT, CMP, PTT, TSH3, CBC #### [address] NRBC% 0.0 /100{WBC} Normal 0-0.5 [facility] Comment on above: Performed By: #### H S TROP, MG, PT, CMP, PTT, TSH3, CBC #### [address] Comprehensive Metabolic Pane tim 03-19-2024 Albumin [Mass/Vol] 3.7 g/dL Normal 3.5-5.7 [facility] Comment on above: Performed By: #### H S TROP, MG, PT, CMP, PTT, TSH3, CBC #### [address] Creatinine Clr Calc Pharmacy 50.94 Normal [facility] Comment on above: Performed By: #### H S TROP, MG, PT, CMP, PTT, TSH3, CBC #### [address] GFR/1.73 sq M.predicted MDRD (S/P/Bld) [Vol rate/Area] mL/min/{1.73_m2} Normal [facility] Comment on above: Performed By: #### H S TROP, MG, PT, CMP, PTT, TSH3, CBC #### [address] Creatinine [Mass/volume] in Serum or PlasmaOrdered By: Shahbaz Lehman on 03-19-2024 Creatinine [Mass/Vol] 1.04 mg/dL Normal 0.70-1.30 [facility] Comment on above: Performed By: #### H S TROP, MG, PT, CMP, PTT, TSH3, CBC #### [address] ECG 12 lead ECGon 03-19-2024 ECG 12 lead ECG [facility] [place] [address] Electrocardiograph Report Signed Patient: Cristal Gu MR#: [id number] : 1955 Acct:[id number] Age/Sex: 69 / M ADM Date: 03/19/24 Loc: Room: [address] [place] [address] Type: ADM INOo Attending Dr: Jair Nichols [...] Lateral leads Confirmed by Deborah Lamar MD ([id number]) on 03/19/2024 11:02:32 PM Referred By: Electronically Signed By: Deborah Lamar MD Transcribed By: MUS Signed By Deborah Lamar MD 02/20 2302 Normal [facility] ECG 12 lead ECG [facility] [place] [address] Electrocardiograph Report Signed Patient: Cristal Gu MR#: [id number] : 1955 Acct:[id number] Age/Sex: 69 / M ADM Date: 03/19/24 Loc: ER Room: Type: [facility] ER Attending Dr: Ordering Provider: Shahbaz Lehman [...] Sinus rhythm Confirmed by Shahbaz LEHMAN DO ([id number]) on 03/19/2024 4:01:20 PM Referred By: Electronically Signed By: Shahbaz LEHMAN DO Transcribed By: MUS Signed By Shahbaz Lehman DO 0 03/19/24 1601 Normal [facility] Erythrocyte distribution wid th [Ratio] by Automated countOrdered By: Shahbaz Lehman on 03-19-2024 Erythrocyte distribution width (RBC) [Ratio] 13.7 % Normal 12.0-14.8 [facility] Comment on above: Performed By: #### H S TROP, MG, PT, CMP, PTT, TSH3, CBC #### [facility] [address] Erythrocytes [#/volume] in B lood by Automated countOrdered By: Shahbaz Lehman on 03-19-2024 RBC (Bld) [#/Vol] 3.61 10*6/uL Low 3.90-5.60 [facility] Comment on above: Performed By: #### H S TROP, MG, PT, CMP, PTT, TSH3, CBC #### [facility] [address] Glucose [Mass/volume] in Ser um or PlasmaOrdered By: Shahbaz Lehman on 03-19-2024 Glucose [Mass/Vol] 86 mg/dL Normal 70-100 [facility] Comment on above: ADA recommended refe rence rangeRandom Glucose Reference Range is dependent on time and content of last meal. Glucose of more than 200 mg/dL in a nonstressed, ambulatory subject supports the diagnosis of Diabetes Mellitus. Result Comment: [place] om Glucose Reference Range is dependent on time and content of last meal. Glucose of more than 200 mg/dL in a nonstressed, ambulatory subject supports the diagnosis of Diabetes Mellitus. ADA recommended reference range Performed By: #### H S TROP, MG, PT, CMP, PTT, TSH3, CBC #### [facility] [address] Glucose [Mass/volume] in Uri ne by Test stripOrdered By: Shahbaz Lehman on 03-19-2024 Glucose Test strip (U) [Mass/Vol] Normal mg/dL Normal [facility] Hematocrit [Volume Fraction] of Blood by Automated countOrdered By: Shahbaz Lehman on 03-19-2024 Hematocrit (Bld) [Volume fraction] 34.1 % Low 38.8-50.0 [facility] Comment on above: Performed By: #### H S TROP, MG, PT, CMP, PTT, TSH3, CBC #### [facility] [address] Hemoglobin Test strip Ql (U) Ordered By: Shahbaz Lehman on 03-19-2024 Hemoglobin Ql (U) Negative Negative [facility] Hemoglobin [Mass/volume] in BloodOrdered By: Shahbaz Lehman on 03-19-2024 Hemoglobin (Bld) [Mass/Vol] 11.3 g/dL Low 13.0-17.0 [facility] Comment on above: Performed By: #### H S TROP, MG, PT, CMP, PTT, TSH3, CBC #### [facility] [address] INR in Platelet poor plasma by Coagulation assayOrdered By: Shahbaz Lehman on 03-19-2024 INR Coag (PPP) [Relative time] 1.0 {INR} Normal [facility] Comment on above: INR Therapeutic [...] MG, PT, CMP, PTT, TSH3, CBC #### [facility] [address] Ketones [Presence] in Urine by Test stripOrdered By: Shahbaz Lehman on 03-19-2024 Ketones Ql (U) Negative Normal Negative [facility] Comment on above: Order Comment: Name Collection Type:: Clean-Voided Midstream Performed By: #### U A ####[facility] Cda[address] Leukocyte esterase [Presence ] in Urine by Test stripOrdered By: Shahbaz Lehman on 03-19-2024 Leukocyte esterase Test strip Ql (U) Negative Normal Negative [facility] Comment on above: Order Comment: Name Collection Type:: Clean-Voided Midstream Performed By: #### U A ####[facility] Jdl[address]12 [address] Leukocytes [#/volume] correc nani for nucleated erythrocytes in Blood by Automated counOrdered By: Shahbaz Lehman on 03-19-2024 WBC corrected for nucl RBC Auto (Bld) [#/Vol] 7.1 10*3/uL 4.1-10.5 [facility] Leukocytes [#/volume] in Blo od by Automated countOrdered By: Shahbaz Lehman on 03-19-2024 WBC (Bld) [#/Vol] 7.1 10*3/uL Normal 4.1-10.5 [facility] Comment on above: Performed By: #### H S TROP, MG, PT, CMP, PTT, TSH3, CBC #### [facility] [address] Lymphocytes [#/volume] in Bl ood by Automated countOrdered By: Shahbaz Lehman on 03-19-2024 Lymphocytes (Bld) [#/Vol] 0.7 10*3/uL Low 1.00-4.8 [facility] Comment on above: Performed By: #### H S TROP, MG, PT, CMP, PTT, TSH3, CBC #### [facility] [address] [place] [address] [place] Lymphocytes/100 leukocytes i n Blood by Automated countOrdered By: Shahbaz Lehman on 03-19-2024 Lymphocytes/100 WBC (Bld) 10.3 % Normal . [facility] Comment on above: Performed By: #### H S TROP, MG, PT, CMP, PTT, TSH3, CBC #### [facility] [address] [place] [address] [place] MCH [Entitic mass] by Automa nani countOrdered By: Shahbaz Lehman on 03-19-2024 MCH (RBC) [Entitic mass] 31.4 pg Normal 27.5-35.2 [facility] Comment on above: Performed By: #### H S TROP, MG, PT, CMP, PTT, TSH3, CBC #### [facility] [address] MCHC Auto (RBC) [Mass/Vol]Or dered By: Shahbaz Lehman on 03-19-2024 MCHC (RBC) [Mass/Vol] 33.3 g/dL 32.5-35.6 [facility] MCV [Entitic volume] by Auto mated countOrdered By: Shahbaz Lehman on 03-19-2024 MCV (RBC) [Entitic vol] 94.3 fL Normal 83.5-101 [facility] Comment on above: Performed By: #### H S TROP, MG, PT, CMP, PTT, TSH3, CBC #### [facility] [address] [place] [address] Magnesium [Mass/volume] in S juanpablo or PlasmaOrdered By: Shahbaz Lehman on 03-19-2024 Magnesium [Mass/Vol] 1.6 mg/dL Low 1.9-2.7 [facility] Comment on above: Performed By: #### H S TROP, MG, PT, CMP, PTT, TSH3, CBC ####[facility] [id number] [place] [address] Monocyte distribution width [Entitic volume] in Blood by AutomatedOrdered By: Shahbaz Lehman on 03-19-2024 Monocyte distribution width Auto (Bld) [Entitic vol] 19.30 % 0.00-20.00 [facility] Neutrophils [#/volume] in Bl ood by Automated countOrdered By: Shahbaz Lehman on 03-19-2024 Neutrophils (Bld) [#/Vol] 5.7 10*3/uL Normal 1.8-7.7 [facility] Comment on above: Performed By: #### H S TROP, MG, PT, CMP, PTT, TSH3, CBC #### [facility] [address] Nitrite Test strip Ql (U)Ord ered By: Shahbaz Lehman on 03-19-2024 Nitrite Ql (U) Negative Negative [facility] No Panel InformationOrdered By: Shahbaz Lehman on 03-19-2024 Estimated GFR (CKD-EPI) > 60.0 mL/Min [facility] Creatinine Clearance (Chem 50.94 [facility] Nucleated erythrocytes [Pres ence] in Blood by Automated countOrdered By: Shahbaz Lehman on 03-19-2024 Nucleated RBC Auto Ql (Bld) 0.0 /100{WBC} 0-0.5 [facility] Partial Thromboplastin Timeo n 03-19-2024 aPTT Coag (Bld) [Time] 29.4 s Normal 25.1-36.5 [facility] Comment on above: Result Comment: A he matocrit value greater than 55% may lead to inaccurate results in coagulation testing. Patients having hematocrit values >55% require a special collection tube for coagulation studies. Please contact the laboratory at [phone] for redraw instructions. PERFORMED BY: [place] [address] PATHOLOGIST BALLASTER ALEX CROWLEY M.D. Performed By: #### H S TROP, MG, PT, CMP, PTT, TSH3, CBC #### [facility] [address] [place] [address] Platelet mean volume [Entiti c volume] in Blood by Automated countOrdered By: Shahbaz Lehman on 03-19-2024 Platelet mean volume (Bld) [Entitic vol] 9.2 fL Normal 6.6-10.1 [facility] Comment on above: Performed By: #### H S TROP, MG, PT, CMP, PTT, TSH3, CBC #### [facility] [address] [place] [address] Platelets [#/volume] in Bloo d by Automated countOrdered By: Shahbaz Lehman on 03-19-2024 Platelets (Bld) [#/Vol] 239 10*3/uL Normal 150-450 [facility] Comment on above: Performed By: #### H S TROP, MG, PT, CMP, PTT, TSH3, CBC #### [place] [address] [place] Potassium [Moles/volume] in Serum or PlasmaOrdered By: Shahbaz Lehman on 03-19-2024 Potassium [Moles/Vol] 3.6 mmol/L Normal 3.5-5.1 [facility] Comment on above: Performed By: #### H S TROP, MG, PT, CMP, PTT, TSH3, CBC #### [facility] [address] [place] [id number] [facility] Protein Test strip (U) [Mass /Vol]Ordered By: Shahbaz Lehman on 03-19-2024 Protein (U) [Mass/Vol] Negative Negative [facility] Protein [Mass/volume] in Ser um or PlasmaOrdered By: Shahbaz Lehman on 03-19-2024 Protein [Mass/Vol] 6.7 g/dL Normal 6.4-8.9 [facility] Comment on above: Performed By: #### H S TROP, MG, PT, CMP, PTT, TSH3, CBC #### [facility] [address] [place] [id number] [facility] Prothrombin time (PT)Ordered By: Shahbaz Lehman on 03-19-2024 PT Coag (PPP) [Time] 11.6 s Normal 9.0-12.9 [facility] Comment on above: A hematocrit value g reater than 55% may lead to inaccurate results in coagulation testing. Patients having hematocrit values >55% require a special collection tube for coagulation studies. Please contact the laboratory at [phone] for redraw instructions. Result Comment: A he matocrit value greater than 55% may lead to inaccurate results in coagulation testing. Patients having hematocrit values >55% require a special collection tube for coagulation studies. Please contact the laboratory at [phone] for redraw instructions. Performed By: #### H S TROP, MG, PT, CMP, PTT, TSH3, CBC #### [facility] [address] [place] [id number] [facility] Serum globulin measurement b y calculation (mass/volume)Ordered By: Shahbaz Lehman on 03-19-2024 Globulin (S) [Mass/Vol] 3.0 g/dL Normal [facility] Comment on above: Performed By: #### H S TROP, MG, PT, CMP, PTT, TSH3, CBC #### [facility] [address] Serum or plasma albumin/glob ulin mass ratioOrdered By: Shahbaz Lehman on 03-19-2024 Albumin/Globulin [Mass ratio] 1.2 {ratio} Normal [facility] Comment on above: Performed By: #### H S TROP, MG, PT, CMP, PTT, TSH3, CBC #### [facility] [address] [place] [address] Serum or plasma anion gap de terminationOrdered By: Shahbaz Lehman on 03-19-2024 Anion gap [Moles/Vol] 11.0 mmol/L Normal 6.0-15.0 [facility] Comment on above: Performed By: #### H S TROP, MG, PT, CMP, PTT, TSH3, CBC #### [facility] [address] [place] [address] Sodium [Moles/volume] in Ser um or PlasmaOrdered By: Shahbaz Lehman on 03-19-2024 Sodium [Moles/Vol] 138 mmol/L Normal 136-145 [facility] Comment on above: Performed By: #### H S TROP, MG, PT, CMP, PTT, TSH3, CBC #### [facility] [address] [place] [address] Specific gravity Test strip (U) [Rel density]Ordered By: Shahbaz Lehman on 03-19-2024 Specific gravity (U) [Rel density] 1.010 1.001-1.030 [facility] Thyrotropin [Units/volume] i n Serum or PlasmaOrdered By: Shahbaz Lehman on 03-19-2024 TSH Qn 3.36 m[IU]/L Normal 0.45-5.33 [facility] Comment on above: Result Comment: PERF ORMED BY: [place] [address] PATHOLOGIST BALLASTER ALEX CROWLEY M.D. Performed By: #### H S TROP, MG, PT, CMP, PTT, TSH3, CBC ####[facility] [id number] [place] [address] Troponin I High Sensitivityo n 03-19-2024 Troponin I High Sensitivity 18.2 pg/mL Normal 0.0-20.0 [facility] Comment on above: Result Comment: PERF ORMED BY: [place] [address] PATHOLOGIST BALLASTER ALEX CROWLEY M.D. Performed By: #### H S TROP ####[facility] [id number] [address] Troponin I High Sensitivity 19.4 pg/mL Normal 0.0-20.0 [facility] Comment on above: Result Comment: PERF ORMED BY: [place] [address] PATHOLOGIST BALLASTER ALEX CROWLEY M.D. Performed By: #### H S TROP, MG, PT, CMP, PTT, TSH3, CBC #### [facility] [address] [place] [address] Troponin I.cardiac [Mass/vol ume] in Serum or Plasma by Detection limit <= 0.01 ng/Ordered By: Deborah Lamar on 03-19-2024 Troponin I.cardiac DL <= 0.01 ng/mL [Mass/Vol] 18.2 pg/mL 0.0-20.0 [facility] Troponin I.cardiac [Mass/vol ume] in Serum or Plasma by Detection limit <= 0.01 ng/Ordered By: Shahbaz Lehman on 03-19-2024 Troponin I.cardiac DL <= 0.01 ng/mL [Mass/Vol] 19.4 pg/mL 0.0-20.0 [facility] Urea nitrogen [Mass/volume] in Serum or PlasmaOrdered By: Shahbaz Lehman on 03-19-2024 Urea nitrogen [Mass/Vol] 26 mg/dL High 02-11 [facility] Comment on above: Performed By: #### H S TROP, MG, PT, CMP, PTT, TSH3, CBC #### [facility] [address] [place] [id number] [facility] Urinalysison 03-19-2024 Bilirubin,Urine Negative Normal Negative [facility] Comment on above: Order Comment: Name Collection Type:: Clean-Voided Midstream Performed By: #### U A ####[address] [address] [facility] Glucose Ql (U) Normal Normal Normal [facility] Comment on above: Order Comment: Name Collection Type:: Clean-Voided Midstream Performed By: #### U A ####[address] [address] [facility] Nitrite,Urine Negative Normal Negative [facility] Comment on above: Order Comment: Name Collection Type:: Clean-Voided Midstream Performed By: #### U A ####[address] [address] [facility] Occult Blood,Urine Negative Normal Negative [facility] Comment on above: Order Comment: Name Collection Type:: Clean-Voided Midstream Result Comment: PERF ORMED BY: [facility] [address] [place] [address] PATHOLOGIST BALLASTER ALEX CROWLEY M.D. Performed By: #### U A ####[address] [address] [facility] Protein,Urine Negative Normal Negative [facility] Comment on above: Order Comment: Name Collection Type:: Clean-Voided Midstream Performed By: #### U A ####[address] [address] [facility] Specificy [place],Urine 1.010 Normal 1.001-1.030 [facility] Comment on above: Order Comment: Name Collection Type:: Clean-Voided Midstream Performed By: #### U A ####[address] [address] [facility] Urobilinogen,Urine Normal Normal Normal [facility] Comment on above: Order Comment: Name Collection Type:: Clean-Voided Midstream Performed By: #### U A ####[address] [address] [facility] Urine appearanceOrdered By: Shahbaz Lehman on 03-19-2024 Appearance (U) Clear Normal Clear [facility] Comment on above: Order Comment: Name Collection Type:: Clean-Voided Midstream Performed By: #### U A ####[facility] [address] Urobilinogen Test strip (U) [Mass/Vol]Ordered By: Shahbaz Lehman on 03-19-2024 Urobilinogen (U) [Mass/Vol] Normal mg/dL Normal [facility] XR chest 2V*on 03-19-2024 XR chest 2V* [facility] [address] [place] [address] [place] [address] XRay Report Signed Patient: Cristal Gu MR#: [id number] : 1955 Acct:[id number] Age/Sex: 69 / M ADM Date: 03/19/24 Loc: ER Room: Type: [facility] ER Attending Dr: Copies to: Shahbaz [...] Mark Jr., D.OJudi03/19/2024 11:49 AM Dictation Location: [place] [address] Transcribed By: [facility] 03/19/24 1149 Dictated By: Star Mark Jr, DO 03/19/24 1148 Signed By: 03/19/24 1149 Normal [facility] pH of Urine by Test stripOrd ered By: Shahbaz Lehman on 03-19-2024 pH (U) 6.5 [pH] Normal 5.0-9.0 [facility] Comment on above: Order Comment: Name Collection Type:: Clean-Voided Midstream Performed By: #### U A ####[facility] Dvq[address] [place] [address] [facility] CBC W Auto Differential pane l (Bld)on 03-18-2024 Basophils (Bld) [#/Vol] 10*3/uL Normal <0.11 [facility] Comment on above: Order Comment: Speci men Type: BLOOD SPECIMENOrdering Facility: [facility] Address: [address] [place] [address] Performed By: #### 5 7021-8 ####[facility] LABCLIA [id number] [place] [address] Basophils/100 WBC (Bld) 0.2 % Normal [facility] Comment on above: Order Comment: Speci men Type: BLOOD SPECIMENOrdering Facility: [facility] Address: [address] [place] [address] Performed By: #### 5 7021-8 ####[facility] LABCLIA [id number] [place] [address] Differential cell count method Nom (Bld) Auto Normal [facility] Comment on above: Order Comment: Speci men Type: BLOOD SPECIMENOrdering Facility: [facility] Address: [address] [place] [address] Performed By: #### 5 7021-8 ####[facility] LABCLIA [id number] [place] [address] Eosinophils (Bld) [#/Vol] 0.03 10*3/uL Normal <0.46 [facility] Comment on above: Order Comment: Speci men Type: BLOOD SPECIMENOrdering Facility: [facility] Address: [address] [place] [address] Performed By: #### 5 7021-8 ####[facility] LABCLIA [id number] [place] [address] Eosinophils/100 WBC (Bld) 0.3 % Normal [facility] Comment on above: Order Comment: Speci men Type: BLOOD SPECIMENOrdering Facility: [facility] Address: [address] [place] [address] Performed By: #### 5 7021-8 ####[facility] LABCLIA [id number] [place] [address] Erythrocyte distribution width (RBC) [Ratio] 13.2 % Normal 11.5-15.0 [facility] Comment on above: Order Comment: Speci men Type: BLOOD SPECIMENOrdering Facility: [facility] Address: [address] [place] [address] Performed By: #### 5 7021-8 ####[facility] LABIA [id number] [place] [address] Hematocrit (Bld) [Volume fraction] 33.8 % Low 39.0-51.0 [facility] Comment on above: Order Comment: Speci men Type: BLOOD SPECIMENOrdering Facility: [facility] Address: [address] [place] [address] Performed By: #### 5 7021-8 ####[facility] LABIA [id number] [place] [address] Hemoglobin (Bld) [Mass/Vol] 11.3 g/dL Low 13.0-17.0 [facility] Comment on above: Order Comment: Speci men Type: BLOOD SPECIMENOrdering Facility: [facility] Address: [address] [place] [address] Performed By: #### 5 7021-8 ####[facility] LABIA [id number] [place] [address] Immature granulocytes (Bld) [#/Vol] 0.05 10*3/uL Normal <0.10 [facility] Comment on above: Order Comment: Speci men Type: BLOOD SPECIMENOrdering Facility: [facility] Address: [address] [place] [address] Performed By: #### 5 7021-8 ####[facility] LABIA [id number] [place] [address] Immature granulocytes/100 WBC (Bld) 0.6 % Normal [facility] Comment on above: Order Comment: Speci men Type: BLOOD SPECIMENOrdering Facility: [facility] Address: [address] [place] [address] Performed By: #### 5 7021-8 ####[facility] LABCLIA [id number] [place] [address] Lymphocytes (Bld) [#/Vol] 0.85 10*3/uL Low 1.00-4.00 [facility] Comment on above: Order Comment: Speci men Type: BLOOD SPECIMENOrdering Facility: [facility] Address: [address] [place] [address] Performed By: #### 5 7021-8 ####[facility] LABCLIA [id number] [place] [address] Lymphocytes/100 WBC (Bld) 9.9 % Normal [facility] Comment on above: Order Comment: Speci men Type: BLOOD SPECIMENOrdering Facility: [facility] Address: [address] [place] [address] Performed By: #### 5 7021-8 ####[facility] LABCLIA [id number] [place] [address] MCH (RBC) [Entitic mass] 31.0 pg Normal 26.0-34.0 [facility] Comment on above: Order Comment: Speci men Type: BLOOD SPECIMENOrdering Facility: [facility] Address: [address] [place] [address] Performed By: #### 5 7021-8 ####[facility] LABCLIA [id number] [place] [address] MCHC (RBC) [Mass/Vol] 33.4 g/dL Normal 30.5-36.0 [facility] Comment on above: Order Comment: Speci men Type: BLOOD SPECIMENOrdering Facility: [facility] Address: [address] [place] [address] Performed By: #### 5 7021-8 ####[facility] LABCLIA [id number] [place] [address] MCV (RBC) [Entitic vol] 92.6 fL Normal 80.0-100.0 [facility] Comment on above: Order Comment: Speci men Type: BLOOD SPECIMENOrdering Facility: [facility] Address: [address] [place] [address] Performed By: #### 5 7021-8 ####[facility] LABCLIA [id number] [place] [address] Monocytes (Bld) [#/Vol] 0.82 10*3/uL Normal <0.87 [facility] Comment on above: Order Comment: Speci men Type: BLOOD SPECIMENOrdering Facility: [facility] Address: [address] [place] [address] Performed By: #### 5 7021-8 ####[facility] LABCLIA [id number] [place] [address] Monocytes/100 WBC (Bld) 9.6 % Normal [facility] Comment on above: Order Comment: Speci men Type: BLOOD SPECIMENOrdering Facility: [facility] Address: [address] [place] [address] Performed By: #### 5 7021-8 ####[facility] LABCLIA [id number] [place] [address] Neutrophils (Bld) [#/Vol] 6.81 10*3/uL Normal 1.45-7.50 [facility] Comment on above: Order Comment: Speci men Type: BLOOD SPECIMENOrdering Facility: [facility] Address: [address] [place] [address] Performed By: #### 5 7021-8 ####[facility] LABCLIA [id number] [place] [address] Neutrophils/100 WBC (Bld) 79.4 % Normal [facility] Comment on above: Order Comment: Speci men Type: BLOOD SPECIMENOrdering Facility: [facility] Address: [address] [place] [address] Performed By: #### 5 7021-8 ####[facility] LABCLIA [id number] [place] [address] Nucleated RBC (Bld) [#/Vol] 10*3/uL Normal <0.01 [facility] Comment on above: Order Comment: Speci men Type: BLOOD SPECIMENOrdering Facility: [facility] Address: [address] [place] [address] Performed By: #### 5 7021-8 ####[facility] LABCLIA [id number] [place] [address] Nucleated RBC/100 WBC (Bld) [Ratio] 0.0 /100 WBC Normal [facility] Comment on above: Order Comment: Speci men Type: BLOOD SPECIMENOrdering Facility: [facility] Address: [address] [place] [address] Performed By: #### 5 7021-8 ####[facility] LABCLIA [id number] [place] [address] Platelet mean volume (Bld) [Entitic vol] 10.4 fL Normal 9.0-12.7 [facility] Comment on above: Order Comment: Speci men Type: BLOOD SPECIMENOrdering Facility: [facility] Address: [address] [place] [address] Performed By: #### 5 7021-8 ####[facility] LABCLIA [id number] [place] [address] Platelets (Bld) [#/Vol] 250 10*3/uL Normal 150-400 [facility] Comment on above: Order Comment: Speci men Type: BLOOD SPECIMENOrdering Facility: [facility] Address: [address] [place] [address] Performed By: #### 5 7021-8 ####[facility] LABCLIA [id number] [place] [address] RBC (Bld) [#/Vol] 3.65 10*6/uL Low 4.20-6.00 [facility] Comment on above: Order Comment: Speci men Type: BLOOD SPECIMENOrdering Facility: [facility] Address: [address] [place] [address] Performed By: #### 5 7021-8 ####[facility] LABIA [id number] [place] [address] WBC (Bld) [#/Vol] 8.58 10*3/uL Normal 3.70-11.00 [facility] Comment on above: Order Comment: Speci men Type: BLOOD SPECIMENOrdering Facility: [facility] Address: [address] [place] [address] Performed By: #### 5 7021-8 ####[facility] [id number] [place] [address] CNOVSPon 03-18-2024 CNOVSP Normal [facility] CNPNon 03-18-2024 CNPN Normal [facility] Comprehensive metabolic 2000 panelon 03-18-2024 Albumin [Mass/Vol] 4.2 g/dL Normal 3.9-4.9 [facility] Comment on above: Order Comment: Speci men Type: BLOOD SPECIMENOrdering Facility: [facility] Address: [address] [place] [address] Performed By: #### 2 4323-8 ####[facility] LABIA [id number] [place] [address] ALP [Catalytic activity/Vol] 43 U/L Normal 38-113 [facility] Comment on above: Order Comment: Speci men Type: BLOOD SPECIMENOrdering Facility: [facility] Address: [address] [place] [address] Performed By: #### 2 4323-8 ####[facility] LABCLIA [id number] [place] [address] ALT [Catalytic activity/Vol] 7 U/L Low 10-54 [facility] Comment on above: Order Comment: Speci men Type: BLOOD SPECIMENOrdering Facility: [facility] Address: [address] [place] [address] Performed By: #### 2 4323-8 ####[facility] LABCLIA [id number] [place] [address] Anion gap [Moles/Vol] 9 mmol/L Normal 8-15 [facility] Comment on above: Order Comment: Speci men Type: BLOOD SPECIMENOrdering Facility: [facility] Address: [address] [place] [address] Performed By: #### 2 4323-8 ####[facility] LABCLIA [id number] [place] [address] AST [Catalytic activity/Vol] 11 U/L Low 14-40 [facility] Comment on above: Order Comment: Speci men Type: BLOOD SPECIMENOrdering Facility: [facility] Address: [address] [place] [address] Performed By: #### 2 4323-8 ####[facility] LABCLIA [id number] [place] [address] Bilirubin [Mass/Vol] 0.3 mg/dL Normal 0.2-1.3 [facility] Comment on above: Order Comment: Speci men Type: BLOOD SPECIMENOrdering Facility: [facility] Address: [address] [place] [address] Performed By: #### 2 4323-8 ####[facility] LABCLIA [id number] [place] [address] Calcium [Mass/Vol] 10.0 mg/dL Normal 8.5-10.2 [facility] Comment on above: Order Comment: Speci men Type: BLOOD SPECIMENOrdering Facility: [facility] Address: [address] [place] [address] Performed By: #### 2 4323-8 ####[facility] LABCLIA [id number] [place] [address] Chloride [Moles/Vol] 103 mmol/L Normal 98-107 [facility] Comment on above: Order Comment: Speci men Type: BLOOD SPECIMENOrdering Facility: [facility] Address: [address] [place] [address] Performed By: #### 2 4323-8 ####[facility] LABCLIA [id number] [place] [address] CO2 [Moles/Vol] 27 mmol/L Normal 22-30 [facility] Comment on above: Order Comment: Speci men Type: BLOOD SPECIMENOrdering Facility: [facility] Address: [address] [place] [address] Performed By: #### 2 4323-8 ####[facility] LABCLIA [id number] [place] [address] Creatinine [Mass/Vol] 1.08 mg/dL Normal 0.73-1.22 [facility] Comment on above: Order Comment: Speci men Type: BLOOD SPECIMENOrdering Facility: [facility] Address: [address] [place] [address] Performed By: #### 2 4323-8 ####[facility] LABCLIA [id number] [place] [address] Creatinine and Glomerular filtration rate.predicted panel (S/P/Bld) 75 mL/min/1.73m??? Normal >=60 [facility] Comment on above: Order Comment: Speci men Type: BLOOD SPECIMENOrdering Facility: [facility] Address: [address] [place] [address] Result Comment: Landy mated Glomerular Filtration Rate [...] actual GFR. Performed By: #### 2 4323-8 ####[facility] LABCLIA [id number] [place] [address] Glucose [Mass/Vol] 87 mg/dL Normal 74-99 [facility] Comment on above: Order Comment: Speci men Type: BLOOD SPECIMENOrdering Facility: [facility] Address: [address] [place], [place] [address] Result Comment: The [place] [employer] (ADA) provides guidance for cutoff [...] Standards of Medical Care in Diabetes 2016, [place] [employer]. Diabetes Care. 2016.39(Suppl 1). Performed By: #### 2 4323-8 ####[facility] LABCLIA [id number] [place] [address] Potassium [Moles/Vol] 4.1 mmol/L Normal 3.7-5.1 [facility] Comment on above: Order Comment: Speci men Type: BLOOD SPECIMENOrdering Facility: [facility] Address: [address] [place] [address] Performed By: #### 2 4323-8 ####[facility] LABCLIA [id number] [place] [address] Protein [Mass/Vol] 6.9 g/dL Normal 6.3-8.0 [facility] Comment on above: Order Comment: Josei men Type: BLOOD SPECIMENOrdering Facility: [facility] Address: [address] [place] [address] Performed By: #### 2 4323-8 ####[facility] LABCLIA [id number] [place] [address] Sodium [Moles/Vol] 139 mmol/L Normal 136-144 [facility] Comment on above: Order Comment: Speci men Type: BLOOD SPECIMENOrdering Facility: [facility] Address: [address] [place] [address] Performed By: #### 2 4323-8 ####[facility] LABCLIA [id number] [place] [address] Urea nitrogen [Mass/Vol] 27 mg/dL High 9-24 [facility] Comment on above: Order Comment: Speci men Type: BLOOD SPECIMENOrdering Facility: [facility] Address: [address] [place] [address] Performed By: #### 2 4323-8 ####[facility] LABCLIA [id number] [place] [address] ECG 12 lead ECGon 03-18-2024 ECG 12 lead ECG [facility] [place] [address] Electrocardiograph Report Signed Patient: Cristal Gu MR#: [id number] : 1955 Acct:[id number] Age/Sex: 69 / M ADM Date: 03/18/24 Loc: ER Room: Type: [facility] ER Attending Dr: Ordering Provider: Abel De [...] change was found Confirmed by Jonathan Chan ([id number]) on 03/20/2024 6:35:46 PM Referred By: Electronically Signed By: Jonathan Chan Transcribed By: MUS Signed By Jonathan Chan MD 03/20/24 1835 Normal [facility] TSH SerPl-aCncon 03-18-2024 TSH Qn 6.660 m[IU]/L High 0.270-4.200 [facility] Comment on above: Order Comment: Speci men Type: BLOOD SPECIMENOrdering Facility: [facility] Address: [address] [place] [address] Performed By: #### 3 016-3 ####[facility] LABCLIA [id number] [facility] [place]37TH[place]HTBSENICH[place] [id number] [facility] Ambulatory Visit Summaryon 0 03-17-2024 Ambulatory [...] 10:00 AM EDT With: Enrique [place] Where: [facility] [address] [address]- Friday 11:00 AM EDT With: Where: [address] [address]- Medications What How Much When Instructions Unchanged [...] for choosing us for your care. Normal [facility] Medicine Office/Clini c Noteon 03-17-2024 Family [...] pt was scheduled to see someone at [facility] for his left arm pain but [...] SARS-CoV-2 (COVID-19) mRNA-1273 vaccine 11/15/2020 Recorded Normal [facility] Comment on above: Result Comment: Elec tronically Signed By: Enrique [place]\.br\Date and Time Signed: 03/17/24 12:13 EDT CNOVon 03-15-2024 CNOV Normal [facility] CNPNon 03-15-2024 CNPN Normal [facility] CNPNon 03-09-2024 CNPN Normal [facility] GLUCOSE, BLOOD (POC)on 03-09 Glucose [Mass/Vol] 93 mg/dL 74 - 99 mg/dL [facility] Comment on above: Location:[facility], [address] [place] [address] , [place], [place], [address] The Accu-Chek Inform II glucose meter has [...] blood gas instrument) in the above situations. [facility] NM PET/CT SKULL-THIGH SUBQon 03-09-2024 NM PET/CT SKULL-THIGH SUBQ Normal [facility] PET+CT Guidance for localiza tion of tumor [...] any questions regarding this interpretation, please call [phone]. If you are unable to reach us at the number above, please feel free to contact [facility] eRadiology at [phone]. DIVISION OF RADIOLOGY * * *Final Report* [...] mCi * Uptake Time: minutes * Radiopharmaceutical: B49-Xynuxewnqdxrbzbi se (FDG) COMPARISON: PET/CT 11/25/2023 RESULT: REFERENCES: [...] radiotracer avid lesion. DIVISION OF RADIOLOGY Provider, [facility] Qulin - 03/09/2024 * * *Final Report* * [...] mCi * Uptake Time: minutes * Radiopharmaceutical: G03-Jqexrlqdreprgwok se (FDG) COMPARISON: PET/CT 11/25/2023 RESULT: REFERENCES: [...] any questions regarding this interpretation, please call [phone]. If you are unable to reach us at the number above, please feel free to contact [facility] eRadiology at [phone]. [facility] Radiology Study observation (narrative) [facility] PET+CT Guidance for localiza tion of tumor of Skull base to mid-thigh-- W 18F-FDG IVOrdered By: Ccf Provider on 03-09-2024 [facility] CNPNon 03-01-2024 CNPN Normal [facility] Family Medicine Office/Clini c Noteon 03-01-2024 Family Medicine Office/Clinic Note Family Medicine Office/Clinic Note HI Vasquez is a 69 year old male presenting for ER follow up ER followup: Hospital: [place] Visit date: 02/20/24 Symptoms the patient presented [...] up at pharmacy. will send order to [facility]. pt was provided Dr. [place]'s phone number [...] SARS-CoV-2 (COVID-19) mRNA-1273 vaccine 11/15/2020 Recorded Normal [facility] Comment on above: Result Comment: Elec tronically Signed By: Enrique [place]\.miladys\Date and Time Signed: 03/01/24 11:20 EDT CNPNon 02-24-2024 CNPN Normal [facility] CNPNon 02-20-2024 CNPN Normal [facility] CNPNon 02-18-2024 CNPN Normal [facility] CNPNon 02-16-2024 CNPN Normal [facility] CNPNon 02-10-2024 CNPN Normal [facility] XR chest 2V*on 02-08-2024 XR chest 2V* [facility] [place] [address] [place] [address] XRay Report Signed Patient: Cristal Gu MR#: [id number] : 1955 Acct:[id number] Age/Sex: 68 / M ADM Date: 02/07/24 Loc: ER Room: Type: [facility] ER Attending Dr: Copies to: John Dominguez [...] Buzz Barroso M.D.02/08/2024 9:12 AM Dictation Location: [place] [address] Transcribed By: [facility] 02/08/[address] Dictated By: Buzz Barroso DO 02/08/24909 Signed By: 02/08/24911 Normal [facility] Alanine aminotransferase [En zymatic activity/volume] in Serum or PlasmaOrdered By: John Dominguez on 02-07-2024 ALT [Catalytic activity/Vol] 10 U/L Normal [facility] Comment on above: Performed By: #### S CAN CBC, CMP, BNP, CK, HS TROP ####[address] Albumin [Mass/volume] in Ser um or Plasma by Bromocresol green (BCG) dye binding methoOrdered By: John Dominguez on 02-07-2024 Albumin BCG dye [Mass/Vol] 3.6 g/dL 3.5-5.7 [facility] Alkaline phosphatase [Enzyma tic activity/volume] in Serum or PlasmaOrdered By: John Dominguez on 02-07-2024 ALP [Catalytic activity/Vol] 38 U/L Normal 34-104 [facility] Comment on above: Performed By: #### S CAN CBC, CMP, BNP, CK, HS TROP ####[address] Aspartate aminotransferase [ Enzymatic activity/volume] in Serum or PlasmaOrdered By: John Dominguez on 02-07-2024 AST [Catalytic activity/Vol] 20 U/L Normal 13-39 [facility] Comment on above: Performed By: #### S CAN CBC, CMP, BNP, CK, HS TROP ####[address] Automated basophil %Ordered By: John Dominguez on 02-07-2024 Basophils/100 WBC (Bld) 0.7 % Normal . [facility] Comment on above: Performed By: #### S CAN CBC, CMP, BNP, CK, HS TROP ####[address] Automated basophil countOrde red By: John Dominguez on 02-07-2024 Basophils (Bld) [#/Vol] 0.0 10*3/uL Normal 0.0-0.2 [facility] Comment on above: Performed By: #### S CAN CBC, CMP, BNP, CK, HS TROP ####[address] Automated blood monocyte cou ntOrdered By: John Dominguez on 02-07-2024 Monocytes (Bld) [#/Vol] 0.4 10*3/uL Normal 0.0-0.8 [facility] Comment on above: Performed By: #### S CAN CBC, CMP, BNP, CK, HS TROP ####[address] Automated eosinophil %Ordere d By: John Dominguez on 02-07-2024 Eosinophils/100 WBC (Bld) 0.1 % Normal . [facility] [facility] Comment on above: Performed By: #### S CAN CBC, CMP, BNP, CK, HS TROP ####[address] Automated eosinophil countOr dered By: John Dominguez on 02-07-2024 Eosinophils (Bld) [#/Vol] 0.0 10*3/uL Normal 0.0-0.45 [facility] Comment on above: Performed By: #### S CAN CBC, CMP, BNP, CK, HS TROP ####[address] Automated monocyte %Ordered By: John Dominguez on 02-07-2024 Monocytes/100 WBC (Bld) 9.5 % Normal . [facility] Comment on above: Performed By: #### S CAN CBC, CMP, BNP, CK, HS TROP ####[address] Automated neutrophil %Ordere d By: John Dominguez on 02-07-2024 Neutrophils/100 WBC (Bld) 75.4 % Normal . [facility] Comment on above: Performed By: #### S CAN CBC, CMP, BNP, CK, HS TROP ####[address] BNP ser/plasOrdered By: John Dominguez on 02-07-2024 Natriuretic peptide B (Bld) [Mass/Vol] 123.0 pg/mL High 5-100 [facility] Comment on above: Result Comment: PERF ORMED BY: [facility] [address] [place] [address] PATHOLOGIST BALLASTER ALEX CROWLEY M.D. Performed By: #### S CAN CBC, CMP, BNP, CK, HS TROP ####[place] [id number] [facility] Bilirubin.total [Mass/volume ] in Serum or PlasmaOrdered By: John Dominguez on 02-07-2024 Bilirubin [Mass/Vol] 0.7 mg/dL Normal 0.3-1.0 [facility] Comment on above: Performed By: #### S CAN CBC, CMP, BNP, CK, HS TROP ####[place] [id number] [facility] Calcium [Mass/volume] in Ser um or PlasmaOrdered By: John Dominguez on 02-07-2024 Calcium [Mass/Vol] 9.4 mg/dL Normal 8.6-10.3 [facility] Comment on above: Performed By: #### S CAN CBC, CMP, BNP, CK, HS TROP ####[address] Carbon dioxide, total [Moles /volume] in Serum or PlasmaOrdered By: John Dominguez on 02-07-2024 CO2 [Moles/Vol] 23.7 mmol/L Normal 21.0-31.0 [place] Comment on above: Performed By: #### S CAN CBC, CMP, BNP, CK, HS TROP ####[place] [id number] [facility] Chloride [Moles/volume] in S juanpablo or PlasmaOrdered By: John Dominguez on 02-07-2024 Chloride [Moles/Vol] 100 mmol/L Normal 98-107 [facility] Comment on above: Performed By: #### S CAN CBC, CMP, BNP, CK, HS TROP ####[place] [id number] [facility] Comprehensive Metabolic Pane tim 02-07-2024 Albumin [Mass/Vol] 3.6 g/dL Normal 3.5-5.7 [facility] Comment on above: Performed By: #### S CAN CBC, CMP, BNP, CK, HS TROP ####[place] [id number] [facility] Creatinine Clr Calc Pharmacy 47.99 Normal [facility] Comment on above: Result Comment: PERF ORMED BY: [place] [address] PATHOLOGIST BALLASTER ALEX CROWLEY M.D. Performed By: #### S CAN CBC, CMP, BNP, CK, HS TROP ####[place] [id number] [place] [id number] [facility] GFR/1.73 sq M.predicted MDRD (S/P/Bld) [Vol rate/Area] mL/min/{1.73_m2} Normal [facility] Comment on above: Performed By: #### S CAN CBC, CMP, BNP, CK, HS TROP ####[place] [id number] [place] [id number] [facility] Creatine kinase [Enzymatic a ctivity/volume] in Serum or PlasmaOrdered By: John Dominguez on 02-07-2024 CK [Catalytic activity/Vol] 54 U/L Normal 30-223 [facility] Comment on above: Performed By: #### S CAN CBC, CMP, BNP, CK, HS TROP ####[place] [id number] [facility] Creatinine [Mass/volume] in Serum or PlasmaOrdered By: John Dominguez on 02-07-2024 Creatinine [Mass/Vol] 1.12 mg/dL Normal 0.70-1.30 [facility] Comment on above: Performed By: #### S CAN CBC, CMP, BNP, CK, HS TROP ####[place] [id number] [facility] ECG 12 lead ECGon 02-07-2024 ECG 12 lead ECG [facility] [address] [place] [address] [place] [address] Electrocardiograph Report Signed Patient: Cristal Gu MR#: [id number] : 1955 Acct:[id number] Age/Sex: 68 / M ADM Date: 02/07/24 Loc: ER Room: Type: [facility] ER Attending Dr: Ordering Provider: John Dominguez [...] John Dominguez MD 02/08/24 0020 Normal [facility] Erythrocyte distribution wid th [Ratio] by Automated countOrdered By: John Dominguez on 02-07-2024 Erythrocyte distribution width (RBC) [Ratio] 14.9 % High 12.0-14.8 [facility] Comment on above: Performed By: #### S CAN CBC, CMP, BNP, CK, HS TROP ####[facility] [id number] [place] [id number] [facility] Erythrocytes [#/volume] in B lood by Automated countOrdered By: John Dominguez on 02-07-2024 RBC (Bld) [#/Vol] 3.76 10*6/uL Low 3.90-5.60 [facility] Comment on above: Performed By: #### S CAN CBC, CMP, BNP, CK, HS TROP ####[facility] [id number] [place] [address] [facility] Glucose [Mass/volume] in Ser um or PlasmaOrdered By: John Dominguez on 02-07-2024 Glucose [Mass/Vol] 168 mg/dL High 70-100 [facility] Comment on above: ADA recommended refe rence rangeRandom Glucose Reference Range is dependent on time and content of last meal. Glucose of more than 200 mg/dL in a nonstressed, ambulatory subject supports the diagnosis of Diabetes Mellitus. Result Comment: [place] om Glucose Reference Range is dependent on time and content of last meal. Glucose of more than 200 mg/dL in a nonstressed, ambulatory subject supports the diagnosis of Diabetes Mellitus. ADA recommended reference range Performed By: #### S CAN CBC, CMP, BNP, CK, HS TROP ####[address] Hematocrit [Volume Fraction] of Blood by Automated countOrdered By: John Dominguez on 02-07-2024 Hematocrit (Bld) [Volume fraction] 35.7 % Low 38.8-50.0 [facility] Comment on above: Performed By: #### S CAN CBC, CMP, BNP, CK, HS TROP ####[address] Hemoglobin [Mass/volume] in BloodOrdered By: John Dominguez on 02-07-2024 Hemoglobin (Bld) [Mass/Vol] 12.1 g/dL Low 13.0-17.0 [facility] Comment on above: Performed By: #### S CAN CBC, CMP, BNP, CK, HS TROP ####[address] Leukocytes [#/volume] correc nani for nucleated erythrocytes in Blood by Automated counOrdered By: John Dominguez on 02-07-2024 WBC corrected for nucl RBC Auto (Bld) [#/Vol] 4.0 10*3/uL Low 4.1-10.5 [facility] Leukocytes [#/volume] in Blo od by Automated countOrdered By: John Dominguez on 02-07-2024 WBC (Bld) [#/Vol] 4.0 10*3/uL Low 4.1-10.5 [facility] Comment on above: Performed By: #### S CAN CBC, CMP, BNP, CK, HS TROP ####[address] Lymphocytes [#/volume] in Bl ood by Automated countOrdered By: John Dominguez on 02-07-2024 Lymphocytes (Bld) [#/Vol] 0.6 10*3/uL Low 1.00-4.8 [facility] Comment on above: Performed By: #### S CAN CBC, CMP, BNP, CK, HS TROP ####[address] Lymphocytes/100 leukocytes i n Blood by Automated countOrdered By: John Dominguez on 02-07-2024 Lymphocytes/100 WBC (Bld) 14.3 % Normal . [facility] Comment on above: Performed By: #### S CAN CBC, CMP, BNP, CK, HS TROP ####[facility] [id number] MCH [Entitic mass] by Automa nani countOrdered By: John Dominguez on 02-07-2024 MCH (RBC) [Entitic mass] 32.1 pg Normal 27.5-35.2 [facility] Comment on above: Performed By: #### S CAN CBC, CMP, BNP, CK, HS TROP ####[place] [id number] MCHC Auto (RBC) [Mass/Vol]Or dered By: John Dominguez on 02-07-2024 MCHC (RBC) [Mass/Vol] 33.8 g/dL 32.5-35.6 [facility] MCV [Entitic volume] by Auto mated countOrdered By: John Dominguez on 02-07-2024 MCV (RBC) [Entitic vol] 94.9 fL Normal 83.5-101 [facility] Comment on above: Performed By: #### S CAN CBC, CMP, BNP, CK, HS TROP ####[place] [id number] Monocyte distribution width [Entitic volume] in Blood by AutomatedOrdered By: John Dominguez on 02-07-2024 Monocyte distribution width Auto (Bld) [Entitic vol] 19.12 % 0.00-20.00 [facility] Neutrophils [#/volume] in Bl ood by Automated countOrdered By: John Dominguez on 02-07-2024 Neutrophils (Bld) [#/Vol] 3.0 10*3/uL Normal 1.8-7.7 [facility] Comment on above: Performed By: #### S CAN CBC, CMP, BNP, CK, HS TROP ####[address] No Panel InformationOrdered By: John Dominguez on 02-07-2024 Estimated GFR (CKD-EPI) > 60.0 mL/Min [facility] Creatinine Clearance (Chem 47.99 [facility] Nucleated erythrocytes [Pres ence] in Blood by Automated countOrdered By: John Dominguez on 02-07-2024 Nucleated RBC Auto Ql (Bld) 0.1 /100{WBC} 0-0.5 [facility] Platelet adequacy [Presence] in Blood by Light microscopyOrdered By: John Dominguez on 02-07-2024 Platelets LM Ql (Bld) Normal Normal [facility] Platelet mean volume [Entiti c volume] in Blood by Automated countOrdered By: John Dominguez on 02-07-2024 Platelet mean volume (Bld) [Entitic vol] 10.5 fL High 6.6-10.1 [facility] Comment on above: Performed By: #### S CAN CBC, CMP, BNP, CK, HS TROP ####[facility] [id number] Platelet morphology finding [Identifier] in BloodOrdered By: John Dominguez on 02-07-2024 Platelet morphology finding Nom (Bld) Normal Normal [facility] Platelets Large [Presence] i n Blood by Light microscopyOrdered By: John Dominguez on 02-07-2024 Platelets Large LM Ql (Bld) Slight [facility] Platelets [#/volume] in Bloo d by Automated countOrdered By: John Dominguez on 02-07-2024 Platelets (Bld) [#/Vol] 187 10*3/uL Normal 150-450 [facility] Comment on above: Performed By: #### S CAN CBC, CMP, BNP, CK, HS TROP ####[facility] [id number] Polychromasia [Presence] in Blood by Light microscopyOrdered By: John Dominguez on 02-07-2024 Polychromasia LM Ql (Bld) Slight [facility] Potassium [Moles/volume] in Serum or PlasmaOrdered By: John Dominguez on 02-07-2024 Potassium [Moles/Vol] 3.8 mmol/L Normal 3.5-5.1 [facility] Comment on above: Performed By: #### S CAN CBC, CMP, BNP, CK, HS TROP ####[address] Protein [Mass/volume] in Ser um or PlasmaOrdered By: John Dominguez on 02-07-2024 Protein [Mass/Vol] 6.9 g/dL Normal 6.4-8.9 [facility] Comment on above: Performed By: #### S CAN CBC, CMP, BNP, CK, HS TROP ####[address] RBC morphologyOrdered By: Karmen Dominguez on 02-07-2024 RBC morphology finding Nom (Bld) Normal Normal Normal [facility] Comment on above: Performed By: #### S CAN CBC, CMP, BNP, CK, HS TROP ####[address] Scan and CBCon 02-07-2024 Large Platelets Slight Normal [facility] Comment on above: Result Comment: PERF ORMED BY: [facility] [address] [facility] [place] [address] PATHOLOGIST BALLASTER ALEX CROWLEY M.D. Performed By: #### S CAN CBC, CMP, BNP, CK, HS TROP ####[address] Mean Corpuscular HGB Conc 33.8 g/dL Normal 32.5-35.6 [facility] Comment on above: Performed By: #### S CAN CBC, CMP, BNP, CK, HS TROP ####[address] Monocytes/100 WBC (Bld) 19.12 % Normal 0.00-20.00 [facility] Comment on above: Performed By: #### S CAN CBC, CMP, BNP, CK, HS TROP ####[address] NRBC% 0.1 /100{WBC} Normal 0-0.5 [facility] Comment on above: Performed By: #### S CAN CBC, CMP, BNP, CK, HS TROP ####[address] Platelet Estimate Normal Normal Normal [facility] Comment on above: Performed By: #### S CAN CBC, CMP, BNP, CK, HS TROP ####[address] Platelet Morphology Normal Normal Normal [facility] Comment on above: Performed By: #### S CAN CBC, CMP, BNP, CK, HS TROP ####[address] Polychromasia Slight Normal [facility] Comment on above: Performed By: #### S CAN CBC, CMP, BNP, CK, HS TROP ####[address] Serum globulin measurement b y calculation (mass/volume)Ordered By: John Dominguez on 02-07-2024 Globulin (S) [Mass/Vol] 3.3 g/dL Normal [facility] Comment on above: Performed By: #### S CAN CBC, CMP, BNP, CK, HS TROP ####[address] Serum or plasma albumin/glob ulin mass ratioOrdered By: John Dominguez on 02-07-2024 Albumin/Globulin [Mass ratio] 1.1 {ratio} Normal [facility] Comment on above: Performed By: #### S CAN CBC, CMP, BNP, CK, HS TROP ####[address] Serum or plasma anion gap de terminationOrdered By: John Dominguez on 02-07-2024 Anion gap [Moles/Vol] 13.1 mmol/L Normal 6.0-15.0 [facility] Comment on above: Performed By: #### S CAN CBC, CMP, BNP, CK, HS TROP ####[address] Sodium [Moles/volume] in Ser um or PlasmaOrdered By: John Dominguez on 02-07-2024 Sodium [Moles/Vol] 133 mmol/L Low 136-145 [facility] Comment on above: Performed By: #### S CAN CBC, CMP, BNP, CK, HS TROP ####[place] [id number] [place] [address] [facility] Troponin I High Sensitivityo n 02-07-2024 Troponin I High Sensitivity 10.1 pg/mL Normal 0.0-20.0 [facility] Comment on above: Result Comment: PERF ORMED BY: [facility] [address] [place] [id number] PATHOLOGIST BALLASTER ALEX CROWLEY M.D. Performed By: #### S CAN CBC, CMP, BNP, CK, HS TROP ####[place] [address] [place] [address] [facility] Troponin I.cardiac [Mass/vol ume] in Serum or Plasma by Detection limit <= 0.01 ng/Ordered By: John Dominguez on 02-07-2024 Troponin I.cardiac DL <= 0.01 ng/mL [Mass/Vol] 10.1 pg/mL 0.0-20.0 [facility] Urea nitrogen [Mass/volume] in Serum or PlasmaOrdered By: John Dominguez on 02-07-2024 Urea nitrogen [Mass/Vol] 17 mg/dL Normal 7-25 [facility] Comment on above: Performed By: #### S CAN CBC, CMP, BNP, CK, HS TROP ####[place] [address] [place] [address] [facility] Family Medicine Office/Clini c Noteon 02-06-2024 Family [...] day(s), # 14 tab(s), Refills(s) 0, Pharmacy: [facility], 169.5, cm, 02/06/24 12:01:00 EDT, Height/Length Dosing, 52.9, kg, 02/06/24 12:01:00 EDT, Weight Dosing methylPREDNISolone, = 1 packet(s), Oral, As Directed, as directed on package labeling, X 6 day(s), # 21 tab(s), Refills(s) 0, Pharmacy: [facility], 169.5, cm, 02/06/24 12:01:00 EDT, Height/Length Dosing, 52.9, kg, 02/06/24 12:01:00 EDT, Weight Dosing 2. Former smoker (Z87.891: Personal history of nicotine dependence) continue not smoking Ordered: amoxicillin, 875 mg = 1 tab(s), Oral, BID, X 7 day(s), # 14 tab(s), Refills(s) 0, Pharmacy: [facility], 169.5, cm, 02/06/24 12:01:00 EDT, Height/Length Dosing, 52.9, kg, 02/06/24 12:01:00 EDT, Weight Dosing methylPREDNISolone, = 1 packet(s), Oral, As Directed, as directed on package labeling, X 6 day(s), # 21 tab(s), Refills(s) 0, Pharmacy: [facility], 169.5, cm, 02/06/24 12:01:00 EDT, Height/Length Dosing, 52.9, kg, 02/06/24 12:01:00 EDT, Weight Dosing 3. BMI less than 19,adult (Z68.1: Body mass index [BMI] 19.9 or less, adult) BMI education given Ordered: amoxicillin, 875 mg = 1 tab(s), Oral, BID, X 7 day(s), # 14 tab(s), Refills(s) 0, Pharmacy: [facility], 169.5, cm, 02/06/24 12:01:00 EDT, Height/Length Dosing, 52.9, kg, 02/06/24 12:01:00 EDT, Weight Dosing methylPREDNISolone, = 1 packet(s), Oral, As Directed, as directed on package labeling, X 6 day(s), # 21 tab(s), Refills(s) 0, Pharmacy: [facility], 169.5, cm, 02/06/24 12:01:00 EDT, Height/Length Dosing, 52.9, kg, 02/06/24 12:01:00 EDT, Weight Dosing Orders: triamcinolone topical, 1 duong, Topical, BID, 20 gram, Refill(s) 1, [facility], 169.5, cm, 10/15/23 11:53:00 EDT, Height/Length [...] (COVID-19) mRN (more content not included)... Normal [facility] Comment on above: Result Comment: Elec tronically Signed By: Enrique Austin\.br\Date and Time Signed: 02/06/24 12:32 EDT CBC W Auto Differential pane l (Bld)on 02-03-2024 Basophils (Bld) [#/Vol] 10*3/uL Normal <0.11 [facility] Comment on above: Order Comment: Speci men Type: BLOOD SPECIMENOrdering Facility: [facility] Address: [address] [place] [address] Performed By: #### 5 7021-8 ####[facility] LABCLIA [id number] [place] [address] Basophils/100 WBC (Bld) 0.3 % Normal [facility] Comment on above: Order Comment: Speci men Type: BLOOD SPECIMENOrdering Facility: [facility] Address: [address] [place] [address] Performed By: #### 5 7021-8 ####[facility] LABCLIA [id number] [place] [address] Differential cell count method Nom (Bld) Auto Normal [facility] Comment on above: Order Comment: Speci men Type: BLOOD SPECIMENOrdering Facility: [facility] Address: [address] [place] [address] Performed By: #### 5 7021-8 ####[facility] LABCLIA [id number] [place] [address] Eosinophils (Bld) [#/Vol] 0.10 10*3/uL Normal <0.46 [facility] Comment on above: Order Comment: Speci men Type: BLOOD SPECIMENOrdering Facility: [facility] Address: [address] [place] [address] Performed By: #### 5 7021-8 ####[facility] LABCLIA [id number] [place] [address] Eosinophils/100 WBC (Bld) 1.7 % Normal [facility] Comment on above: Order Comment: Speci men Type: BLOOD SPECIMENOrdering Facility: [facility] Address: [address] [place] [address] Performed By: #### 5 7021-8 ####[facility] LABCLIA [id number] [place] [address] Erythrocyte distribution width (RBC) [Ratio] 13.7 % Normal 11.5-15.0 [facility] Comment on above: Order Comment: Speci men Type: BLOOD SPECIMENOrdering Facility: [facility] Address: [address] [place] [address] Performed By: #### 5 7021-8 ####[facility] LABCLIA [id number] [place] [address] Hematocrit (Bld) [Volume fraction] 38.1 % Low 39.0-51.0 [facility] Comment on above: Order Comment: Speci men Type: BLOOD SPECIMENOrdering Facility: [facility] Address: [address] [place] [address] Performed By: #### 5 7021-8 ####[facility] LABCLIA [id number] [place] [address] Hemoglobin (Bld) [Mass/Vol] 12.7 g/dL Low 13.0-17.0 [facility] Comment on above: Order Comment: Speci men Type: BLOOD SPECIMENOrdering Facility: [facility] Address: [address] [place] [address] Performed By: #### 5 7021-8 ####[facility] LABIA [id number] [place] [address] Immature granulocytes (Bld) [#/Vol] 0.04 10*3/uL Normal <0.10 [facility] Comment on above: Order Comment: Speci men Type: BLOOD SPECIMENOrdering Facility: [facility] Address: [address] [place] [address] Performed By: #### 5 7021-8 ####[facility] LABIA [id number] [place] [address] Immature granulocytes/100 WBC (Bld) 0.7 % Normal [facility] Comment on above: Order Comment: Speci men Type: BLOOD SPECIMENOrdering Facility: [facility] Address: [address] [place] [address] Performed By: #### 5 7021-8 ####[facility] LABIA [id number] [place] [address] Lymphocytes (Bld) [#/Vol] 1.05 10*3/uL Normal 1.00-4.00 [facility] Comment on above: Order Comment: Speci men Type: BLOOD SPECIMENOrdering Facility: [facility] Address: [address] [place] [address] Performed By: #### 5 7021-8 ####[facility] LABCLIA [id number] [place] [address] Lymphocytes/100 WBC (Bld) 17.6 % Normal [facility] Comment on above: Order Comment: Speci men Type: BLOOD SPECIMENOrdering Facility: [facility] Address: [address] [place] [address] Performed By: #### 5 7021-8 ####[facility] LABCLIA [id number] [place] [address] MCH (RBC) [Entitic mass] 31.7 pg Normal 26.0-34.0 [facility] Comment on above: Order Comment: Speci men Type: BLOOD SPECIMENOrdering Facility: [facility] Address: [address] [place] [address] Performed By: #### 5 7021-8 ####[facility] LABIA [id number] [place] [address] MCHC (RBC) [Mass/Vol] 33.3 g/dL Normal 30.5-36.0 [facility] Comment on above: Order Comment: Speci men Type: BLOOD SPECIMENOrdering Facility: [facility] Address: [address] [place] [address] Performed By: #### 5 7021-8 ####[facility] LABCLIA [id number] [place] [address] MCV (RBC) [Entitic vol] 95.0 fL Normal 80.0-100.0 [facility] Comment on above: Order Comment: Speci men Type: BLOOD SPECIMENOrdering Facility: [facility] Address: [address] [place] [address] Performed By: #### 5 7021-8 ####[facility] LABIA [id number] [place] [address] Monocytes (Bld) [#/Vol] 1.00 10*3/uL High <0.87 [facility] Comment on above: Order Comment: Speci men Type: BLOOD SPECIMENOrdering Facility: [facility] Address: [address] [place] [address] Performed By: #### 5 7021-8 ####[facility] LABCLIA [id number] [place] [address] Monocytes/100 WBC (Bld) 16.8 % Normal [facility] Comment on above: Order Comment: Speci men Type: BLOOD SPECIMENOrdering Facility: [facility] Address: [address] [place] [address] Performed By: #### 5 7021-8 ####[facility] LABCLIA [id number] [place] [address] Neutrophils (Bld) [#/Vol] 3.75 10*3/uL Normal 1.45-7.50 [facility] Comment on above: Order Comment: Speci men Type: BLOOD SPECIMENOrdering Facility: [facility] Address: [address] [place] [address] Performed By: #### 5 7021-8 ####[facility] LABCLIA [id number] [place] [address] Neutrophils/100 WBC (Bld) 62.9 % Normal [facility] Comment on above: Order Comment: Speci men Type: BLOOD SPECIMENOrdering Facility: [facility] Address: [address] [place] [address] Performed By: #### 5 7021-8 ####[facility] LABCLIA [id number] [place] [address] Nucleated RBC (Bld) [#/Vol] 10*3/uL Normal <0.01 [facility] Comment on above: Order Comment: Speci men Type: BLOOD SPECIMENOrdering Facility: [facility] Address: [address] [place] [address] Performed By: #### 5 7021-8 ####[facility] LABCLIA [id number] [place] [address] Nucleated RBC/100 WBC (Bld) [Ratio] 0.0 /100 WBC Normal [facility] Comment on above: Order Comment: Speci men Type: BLOOD SPECIMENOrdering Facility: [facility] Address: [address] [place] [address] Performed By: #### 5 7021-8 ####[facility] LABCLIA [id number] [place] [address] Platelet mean volume (Bld) [Entitic vol] 11.5 fL Normal 9.0-12.7 [facility] Comment on above: Order Comment: Speci men Type: BLOOD SPECIMENOrdering Facility: [facility] Address: [address] [place] [address] Performed By: #### 5 7021-8 ####[facility] LABCLIA [id number] [place] [address] Platelets (Bld) [#/Vol] 201 10*3/uL Normal 150-400 [facility] Comment on above: Order Comment: Speci men Type: BLOOD SPECIMENOrdering Facility: [facility] Address: [address] [place] [address] Performed By: #### 5 7021-8 ####[facility] LABCLIA [id number] [place] [address] RBC (Bld) [#/Vol] 4.01 10*6/uL Low 4.20-6.00 [facility] Comment on above: Order Comment: Speci men Type: BLOOD SPECIMENOrdering Facility: [facility] Address: [address] [place] [address] Performed By: #### 5 7021-8 ####[facility] LABCLIA [id number] [place] [address] WBC (Bld) [#/Vol] 5.96 10*3/uL Normal 3.70-11.00 [facility] Comment on above: Order Comment: Speci men Type: BLOOD SPECIMENOrdering Facility: [facility] Address: [address] [place] [address] Performed By: #### 5 7021-8 ####[facility] LABCLIA [id number] [place] [address] CNOVSPon 02-03-2024 CNOVSP Normal [facility] CNPNon 02-03-2024 CNPN Normal [facility] Comprehensive metabolic 2000 panelon 02-03-2024 Albumin [Mass/Vol] 3.8 g/dL Low 3.9-4.9 [facility] Comment on above: Order Comment: Speci men Type: BLOOD SPECIMENOrdering Facility: [facility] Address: [address] [place] [address] Performed By: #### 2 4323-8 ####[facility] LABCLIA [id number] [place] [address] ALP [Catalytic activity/Vol] 47 U/L Normal 38-113 [facility] Comment on above: Order Comment: Speci men Type: BLOOD SPECIMENOrdering Facility: [facility] Address: [address] [place] [address] Performed By: #### 2 4323-8 ####[facility] LABCLIA [id number] [place] [address] ALT [Catalytic activity/Vol] 12 U/L Normal 10-54 [facility] Comment on above: Order Comment: Speci men Type: BLOOD SPECIMENOrdering Facility: [facility] Address: [address] [place] [address] Performed By: #### 2 4323-8 ####[facility] LABCLIA [id number] [place] [address] Anion gap [Moles/Vol] 13 mmol/L Normal 8-15 [facility] Comment on above: Order Comment: Speci men Type: BLOOD SPECIMENOrdering Facility: [facility] Address: [address] [place], [place] [address] Performed By: #### 2 4323-8 ####[facility] LABCLIA [id number] [place] [address] AST [Catalytic activity/Vol] 22 U/L Normal 14-40 [facility] Comment on above: Order Comment: Speci men Type: BLOOD SPECIMENOrdering Facility: [facility] Address: [address] [place] [address] Performed By: #### 2 4323-8 ####[facility] LABCLIA [id number] [place] [address] Bilirubin [Mass/Vol] 0.8 mg/dL Normal 0.2-1.3 [facility] Comment on above: Order Comment: Speci men Type: BLOOD SPECIMENOrdering Facility: [facility] Address: [address] [place] [address] Performed By: #### 2 4323-8 ####[facility] LABCLIA [id number] [place] [address] Calcium [Mass/Vol] 10.5 mg/dL High 8.5-10.2 [facility] Comment on above: Order Comment: Speci men Type: BLOOD SPECIMENOrdering Facility: [facility] Address: [address] [place] [address] Performed By: #### 2 4323-8 ####[facility] LABCLIA [id number] [place] [address] Chloride [Moles/Vol] 101 mmol/L Normal 98-107 [facility] Comment on above: Order Comment: Speci men Type: BLOOD SPECIMENOrdering Facility: [facility] Address: [address] [place] [address] Performed By: #### 2 4323-8 ####[facility] LABCLIA [id number] [place] [address] CO2 [Moles/Vol] 24 mmol/L Normal 22-30 [facility] Comment on above: Order Comment: Speci men Type: BLOOD SPECIMENOrdering Facility: [facility] Address: [address] [place] [address] Performed By: #### 2 4323-8 ####[facility] LABCLIA [id number] [place] [address] Creatinine [Mass/Vol] 1.35 mg/dL High 0.73-1.22 [facility] Comment on above: Order Comment: Speci men Type: BLOOD SPECIMENOrdering Facility: [facility] Address: [address] [place] [address] Performed By: #### 2 4323-8 ####[facility] LABCLIA [id number] [place] [address] Creatinine and Glomerular filtration rate.predicted panel (S/P/Bld) 58 mL/min/1.73m??? Low >=60 [facility] Comment on above: Order Comment: Speci men Type: BLOOD SPECIMENOrdering Facility: [facility] Address: [address] [place] [address] Result Comment: Landy mated Glomerular Filtration Rate [...] actual GFR. Performed By: #### 2 4323-8 ####[facility] LABCLIA [id number] [place] [address] Glucose [Mass/Vol] 98 mg/dL Normal 74-99 [facility] Comment on above: Order Comment: Speci men Type: BLOOD SPECIMENOrdering Facility: [facility] Address: [address] [place] [address] Result Comment: The [place] Diabetes Association (ADA) provides guidance for cutoff [...] Standards of Medical Care in Diabetes 2016, [place] [employer]. Diabetes Care. 2016.39(Suppl 1). Performed By: #### 2 4323-8 ####[facility] LABCLIA [id number] [place] [address] Potassium [Moles/Vol] 4.7 mmol/L Normal 3.7-5.1 [facility] Comment on above: Order Comment: Speci men Type: BLOOD SPECIMENOrdering Facility: [facility] Address: [address] [place] [address] Performed By: #### 2 4323-8 ####[facility] LABCLIA [id number] [place] [address] Protein [Mass/Vol] 7.2 g/dL Normal 6.3-8.0 [facility] Comment on above: Order Comment: Speci men Type: BLOOD SPECIMENOrdering Facility: [facility] Address: [address] [place] [address] Performed By: #### 2 4323-8 ####[facility] LABCLIA [id number] [place] [address] Sodium [Moles/Vol] 138 mmol/L Normal 136-144 [facility] Comment on above: Order Comment: Speci men Type: BLOOD SPECIMENOrdering Facility: [facility] Address: [address] [place] [address] Performed By: #### 2 4323-8 ####[facility] LABCLIA [id number] [place] [address] Urea nitrogen [Mass/Vol] 15 mg/dL Normal 9-24 [facility] Comment on above: Order Comment: Speci men Type: BLOOD SPECIMENOrdering Facility: [facility] Address: [address] [place] [address] Performed By: #### 2 4323-8 ####[facility] LABCLIA [id number] [place] [address] CNPNon 01-27-2024 CNPN Normal [facility] CNPNon 01-13-2024 CNPN Normal [facility] Family Medicine Office/Clini c Noteon 01-12-2024 Family [...] anxiety, # 90 tab(s), Refills(s) 0, Pharmacy: [facility], 169.5, cm, 01/12/24 12:03:00 EDT, Height/Length Dosing, 54.7, kg, 01/12/24 12:03:00 EDT, Weight Dosing alprazolam, 0.25 mg = 1 tab(s), Oral, TID, PRN for anxiety, # 90 tab(s), Refills(s) 0, Pharmacy: [facility], 169.5, cm, 10/08/23 9:02:00 EDT, Height/Length [...] (COVID-19) mRNA-1273 vaccine 11/15/2020 Recorded Normal [facility] Comment on above: Result Comment: Elec tronically Signed By: Enrique Austin\.br\Date and Time Signed: 01/12/24 12:31 EDT CNPNon 01-09-2024 CNPN Normal [facility] CNPNon 12-26-2023 CNPN Normal [facility] CBC W Auto Differential pane l (Bld)on 12-23-2023 Basophils (Bld) [#/Vol] [facility] Basophils/100 WBC (Bld) 0.1 % [facility] Differential cell count method Nom (Bld) Auto [facility] Eosinophils (Bld) [#/Vol] [facility] Eosinophils/100 WBC (Bld) 0.1 % [facility] Erythrocyte distribution width (RBC) [Ratio] 15.3 % High 11.5 - 15.0 % [facility] Hematocrit (Bld) [Volume fraction] 31.1 % Low 39.0 - 51.0 % [facility] Hemoglobin (Bld) [Mass/Vol] 10.0 g/dL Low 13.0 - 17.0 g/dL [facility] Immature granulocytes (Bld) [#/Vol] 0.07 10*3/uL [facility] Immature granulocytes/100 WBC (Bld) 0.9 % [facility] Interpretation and review of laboratory results Abnormal [facility] Lymphocytes (Bld) [#/Vol] 0.38 10*3/uL Low [facility] Lymphocytes/100 WBC (Bld) 4.6 % [facility] MCH (RBC) [Entitic mass] 31.0 pg 26.0 - 34.0 pg [facility] MCHC (RBC) [Mass/Vol] 32.2 g/dL 30.5 - 36.0 g/dL [facility] MCV (RBC) [Entitic vol] 96.3 fL 80.0 - 100.0 fL [facility] Monocytes (Bld) [#/Vol] 0.34 10*3/uL [facility] Monocytes/100 WBC (Bld) 4.1 % [facility] Neutrophils (Bld) [#/Vol] 7.39 10*3/uL [facility] Neutrophils/100 WBC (Bld) 90.2 % [facility] Nucleated RBC (Bld) [#/Vol] NINF [facility] Nucleated RBC/100 WBC (Bld) [Ratio] 0.0 % /100 WBC [facility] Platelet mean volume (Bld) [Entitic vol] 10.9 fL 9.0 - 12.7 fL [facility] Platelets (Bld) [#/Vol] 141 10*3/uL Low [facility] RBC (Bld) [#/Vol] 3.23 10*6/uL Low 4.20 - 6.00 m/uL [facility] WBC (Bld) [#/Vol] 8.20 10*3/uL [facility] Basophils (Bld) [#/Vol] 10*3/uL Normal <0.11 [facility] Comment on above: Order Comment: Speci men Type: BLOOD SPECIMENOrdering Facility: [facility] Address: [address] [place] [address] Performed By: #### 5 7021-8 ####[facility] LABCLIA [id number] [place] [address] Basophils/100 WBC (Bld) 0.1 % Normal [facility] Comment on above: Order Comment: Speci men Type: BLOOD SPECIMENOrdering Facility: [facility] Address: [address] [place] [address] Performed By: #### 5 7021-8 ####[facility] LABCLIA [id number] [place] [address] Differential cell count method Nom (Bld) Auto Normal [facility] Comment on above: Order Comment: Speci men Type: BLOOD SPECIMENOrdering Facility: [facility] Address: [address] [place] [address] Performed By: #### 5 7021-8 ####[facility] LABCLIA [id number] [place] [address] Eosinophils (Bld) [#/Vol] 10*3/uL Normal <0.46 [facility] Comment on above: Order Comment: Speci men Type: BLOOD SPECIMENOrdering Facility: [facility] Address: [address] [place] [address] Performed By: #### 5 7021-8 ####[facility] LABCLIA [id number] [place] [address] Eosinophils/100 WBC (Bld) 0.1 % Normal [facility] Comment on above: Order Comment: Speci men Type: BLOOD SPECIMENOrdering Facility: [facility] Address: [address] [place] [address] Performed By: #### 5 7021-8 ####[facility] LABCLIA [id number] [place] [address] Erythrocyte distribution width (RBC) [Ratio] 15.3 % High 11.5-15.0 [facility] Comment on above: Order Comment: Speci men Type: BLOOD SPECIMENOrdering Facility: [facility] Address: [address] [place] [address] Performed By: #### 5 7021-8 ####[facility] LABCLIA [id number] [place] [address] Hematocrit (Bld) [Volume fraction] 31.1 % Low 39.0-51.0 [facility] Comment on above: Order Comment: Speci men Type: BLOOD SPECIMENOrdering Facility: [facility] Address: [address] [place] [address] Performed By: #### 5 7021-8 ####[facility] LABCLIA [id number] [place] [address] Hemoglobin (Bld) [Mass/Vol] 10.0 g/dL Low 13.0-17.0 [facility] Comment on above: Order Comment: Speci men Type: BLOOD SPECIMENOrdering Facility: [facility] Address: [address] [place] [address] Performed By: #### 5 7021-8 ####[facility] LABCLIA [id number] [place] [address] Immature granulocytes (Bld) [#/Vol] 0.07 10*3/uL Normal <0.10 [facility] Comment on above: Order Comment: Speci men Type: BLOOD SPECIMENOrdering Facility: [facility] Address: [address] [place] [address] Performed By: #### 5 7021-8 ####[facility] LABCLIA [id number] [place] [address] Immature granulocytes/100 WBC (Bld) 0.9 % Normal [facility] Comment on above: Order Comment: Speci men Type: BLOOD SPECIMENOrdering Facility: [facility] Address: [address] [place] [address] Performed By: #### 5 7021-8 ####[facility] LABCLIA [id number] [place] [address] Lymphocytes (Bld) [#/Vol] 0.38 10*3/uL Low 1.00-4.00 [facility] Comment on above: Order Comment: Speci men Type: BLOOD SPECIMENOrdering Facility: [facility] Address: [address] [place] [address] Performed By: #### 5 7021-8 ####[facility] LABCLIA [id number] [place] [address] Lymphocytes/100 WBC (Bld) 4.6 % Normal [facility] Comment on above: Order Comment: Speci men Type: BLOOD SPECIMENOrdering Facility: [facility] Address: [address] [place] [address] Performed By: #### 5 7021-8 ####[facility] LABCLIA [id number] [place] [address] MCH (RBC) [Entitic mass] 31.0 pg Normal 26.0-34.0 [facility] Comment on above: Order Comment: Speci men Type: BLOOD SPECIMENOrdering Facility: [facility] Address: [address] [place] [address] Performed By: #### 5 7021-8 ####[facility] LABIA [id number] [place] [address] MCHC (RBC) [Mass/Vol] 32.2 g/dL Normal 30.5-36.0 [facility] Comment on above: Order Comment: Speci men Type: BLOOD SPECIMENOrdering Facility: [facility] Address: [address] [place] [address] Performed By: #### 5 7021-8 ####[facility] LABIA [id number] [place] [address] MCV (RBC) [Entitic vol] 96.3 fL Normal 80.0-100.0 [facility] Comment on above: Order Comment: Speci men Type: BLOOD SPECIMENOrdering Facility: [facility] Address: [address] [place] [address] Performed By: #### 5 7021-8 ####[facility] LABIA [id number] [place] [address] Monocytes (Bld) [#/Vol] 0.34 10*3/uL Normal <0.87 [facility] Comment on above: Order Comment: Speci men Type: BLOOD SPECIMENOrdering Facility: [facility] Address: [address] [place] [address] Performed By: #### 5 7021-8 ####[facility] LABIA [id number] [place] [address] Monocytes/100 WBC (Bld) 4.1 % Normal [facility] Comment on above: Order Comment: Speci men Type: BLOOD SPECIMENOrdering Facility: [facility] Address: [address] [place] [address] Performed By: #### 5 7021-8 ####[facility] LABCLIA [id number] [place] [address] Neutrophils (Bld) [#/Vol] 7.39 10*3/uL Normal 1.45-7.50 [facility] Comment on above: Order Comment: Speci men Type: BLOOD SPECIMENOrdering Facility: [facility] Address: [address] [place] [address] Performed By: #### 5 7021-8 ####[facility] LABCLIA [id number] [place] [address] Neutrophils/100 WBC (Bld) 90.2 % Normal [facility] Comment on above: Order Comment: Speci men Type: BLOOD SPECIMENOrdering Facility: [facility] Address: [address] [place] [address] Performed By: #### 5 7021-8 ####[facility] LABCLIA [id number] [place] [address] Nucleated RBC (Bld) [#/Vol] 10*3/uL Normal <0.01 [facility] Comment on above: Order Comment: Speci men Type: BLOOD SPECIMENOrdering Facility: [facility] Address: [address] [place] [address] Performed By: #### 5 7021-8 ####[facility] LABIA [id number] [place] [address] Nucleated RBC/100 WBC (Bld) [Ratio] 0.0 /100 WBC Normal [facility] Comment on above: Order Comment: Speci men Type: BLOOD SPECIMENOrdering Facility: [facility] Address: [address] [place] [address] Performed By: #### 5 7021-8 ####[facility] LABIA [id number] [place] [address] Platelet mean volume (Bld) [Entitic vol] 10.9 fL Normal 9.0-12.7 [facility] Comment on above: Order Comment: Speci men Type: BLOOD SPECIMENOrdering Facility: [facility] Address: [address] [place] [address] Performed By: #### 5 7021-8 ####[facility] LABCLIA [id number] [place] [address] Platelets (Bld) [#/Vol] 141 10*3/uL Low 150-400 [facility] Comment on above: Order Comment: Speci men Type: BLOOD SPECIMENOrdering Facility: [facility] Address: [address] [place] [address] Performed By: #### 5 7021-8 ####[facility] LABIA [id number] [place] [address] RBC (Bld) [#/Vol] 3.23 10*6/uL Low 4.20-6.00 [facility] Comment on above: Order Comment: Speci men Type: BLOOD SPECIMENOrdering Facility: [facility] Address: [address] [place] [address] Performed By: #### 5 7021-8 ####[facility] LABIA [id number] [place] [address] WBC (Bld) [#/Vol] 8.20 10*3/uL Normal 3.70-11.00 [facility] Comment on above: Order Comment: Speci men Type: BLOOD SPECIMENOrdering Facility: [facility] Address: [address] [place] [address] Performed By: #### 5 7021-8 ####[facility] LABIA [id number] [place] [address] CNOVSPon 12-23-2023 CNOVSP Normal [facility] metabolic 2000 panelOrdered By: [place] Viramontes on 12-23-2023 Albumin [Mass/Vol] 3.8 g/dL Low 3.9 - 4.9 g/dL [facility] ALP [Catalytic activity/Vol] 38 U/L 38 - 113 U/L [facility] ALT [Catalytic activity/Vol] 14 U/L 10 - 54 U/L [facility] Anion gap [Moles/Vol] 8 mmol/L 8 - 15 mmol/L [facility] AST [Catalytic activity/Vol] 15 U/L 14 - 40 U/L [facility] Bilirubin [Mass/Vol] 0.6 mg/dL 0.2 - 1.3 mg/dL [facility] Calcium [Mass/Vol] 9.7 mg/dL 8.5 - 10.2 mg/dL [facility] Chloride [Moles/Vol] 101 mmol/L 98 - 107 mmol/L [facility] CO2 [Moles/Vol] 26 mmol/L 22 - 30 mmol/L [facility] Creatinine [Mass/Vol] 1.19 mg/dL 0.73 - 1.22 mg/dL [facility] GFR/1.73 sq M.predicted among non-blacks MDRD (S/P/Bld) [Vol rate/Area] 67 mL/min/{1.73_m2} - PINF [facility] Comment on above: Estimated Glomerular [...] 121 mg/dL High 74 - 99 mg/dL [facility] Comment on above: The [place] Di[employer] Association (ADA) provides guidance for [...] Standards of Medical Care in Diabetes 2016, [place] [employer]. Diabetes Care. 2016.39(Suppl 1). Interpretation and review of laboratory results Abnormal [facility] Potassium [Moles/Vol] 3.9 mmol/L 3.7 - 5.1 mmol/L [facility] Protein [Mass/Vol] 6.8 g/dL 6.3 - 8.0 g/dL [facility] Sodium [Moles/Vol] 135 mmol/L Low 136 - 144 mmol/L [facility] Urea nitrogen [Mass/Vol] 41 mg/dL High 9 - 24 mg/dL [facility] Comprehensive metabolic 2000 panelon 12-23-2023 Albumin [Mass/Vol] 3.8 g/dL Low 3.9-4.9 [facility] Comment on above: Order Comment: Speci men Type: BLOOD SPECIMENOrdering Facility: [facility] Address: [address] [place] [address] Performed By: #### 2 4323-8 ####[facility] LABCLIA [id number] [place] [address] ALP [Catalytic activity/Vol] 38 U/L Normal 38-113 [facility] Comment on above: Order Comment: Speci men Type: BLOOD SPECIMENOrdering Facility: [facility] Address: [address] [place] [address] Performed By: #### 2 4323-8 ####[facility] LABCLIA [id number] [place] [address] ALT [Catalytic activity/Vol] 14 U/L Normal 10-54 [facility] Comment on above: Order Comment: Speci men Type: BLOOD SPECIMENOrdering Facility: [facility] Address: [address] [place] [address] Performed By: #### 2 4323-8 ####[facility] LABCLIA [id number] [place] [address] Anion gap [Moles/Vol] 8 mmol/L Normal 8-15 [facility] Comment on above: Order Comment: Speci men Type: BLOOD SPECIMENOrdering Facility: [facility] Address: [address] [place] [address] Performed By: #### 2 4323-8 ####[facility] LABCLIA [id number] [place] [address] AST [Catalytic activity/Vol] 15 U/L Normal 14-40 [facility] Comment on above: Order Comment: Speci men Type: BLOOD SPECIMENOrdering Facility: [facility] Address: [address] [place] [address] Performed By: #### 2 4323-8 ####[facility] LABCLIA [id number] [place] [address] Bilirubin [Mass/Vol] 0.6 mg/dL Normal 0.2-1.3 [facility] Comment on above: Order Comment: Speci men Type: BLOOD SPECIMENOrdering Facility: [facility] Address: [address] [place] [address] Performed By: #### 2 4323-8 ####[facility] LABCLIA [id number] [place] [address] Calcium [Mass/Vol] 9.7 mg/dL Normal 8.5-10.2 [facility] Comment on above: Order Comment: Speci men Type: BLOOD SPECIMENOrdering Facility: [facility] Address: [address] [place] [address] Performed By: #### 2 4323-8 ####[facility] LABCLIA [id number] [place] [address] Chloride [Moles/Vol] 101 mmol/L Normal 98-107 [facility] Comment on above: Order Comment: Speci men Type: BLOOD SPECIMENOrdering Facility: [facility] Address: [address] [place] [address] Performed By: #### 2 4323-8 ####[facility] LABCLIA [id number] [place] [address] CO2 [Moles/Vol] 26 mmol/L Normal 22-30 [facility] Comment on above: Order Comment: Speci men Type: BLOOD SPECIMENOrdering Facility: [facility] Address: [address] [place] [address] Performed By: #### 2 4323-8 ####[facility] LABCLIA [id number] [place] [address] Creatinine [Mass/Vol] 1.19 mg/dL Normal 0.73-1.22 [facility] Comment on above: Order Comment: Speci men Type: BLOOD SPECIMENOrdering Facility: [facility] Address: [address] [place] [address] Performed By: #### 2 4323-8 ####[facility] LABCLIA [id number] [place] [address] Creatinine and Glomerular filtration rate.predicted panel (S/P/Bld) 67 mL/min/1.73m??? Normal >=60 [facility] Comment on above: Order Comment: Speci men Type: BLOOD SPECIMENOrdering Facility: [facility] Address: [address] [place] [address] Result Comment: Landy mated Glomerular Filtration Rate [...] actual GFR. Performed By: #### 2 4323-8 ####[facility] LABCLIA [id number] [place] [address] Glucose [Mass/Vol] 121 mg/dL High 74-99 [facility] Comment on above: Order Comment: Josei shalom Type: BLOOD SPECIMENOrdering Facility: [facility] Address: [address] [place] [address] Result Comment: The [place] Diabetes Association (ADA) provides guidance for cutoff [...] Standards of Medical Care in Diabetes 2016, [place] Diabetes Association. Diabetes Care. 2016.39(Suppl 1). Performed By: #### 2 4323-8 ####[facility] LABCLIA [id number] [place] [address] Potassium [Moles/Vol] 3.9 mmol/L Normal 3.7-5.1 [facility] Comment on above: Order Comment: Speci men Type: BLOOD SPECIMENOrdering Facility: [facility] Address: [address] [place] [address] Performed By: #### 2 4323-8 ####[facility] LABCLIA [id number] [place] [address] Protein [Mass/Vol] 6.8 g/dL Normal 6.3-8.0 [facility] Comment on above: Order Comment: Speci men Type: BLOOD SPECIMENOrdering Facility: [facility] Address: [address] [place] [address] Performed By: #### 2 4323-8 ####[facility] LABCLIA [id number] [place] [address] Sodium [Moles/Vol] 135 mmol/L Low 136-144 [facility] Comment on above: Order Comment: Speci men Type: BLOOD SPECIMENOrdering Facility: [facility] Address: [address] [place] [address] Performed By: #### 2 4323-8 ####[facility] LABCLIA [id number] [place] [address] Urea nitrogen [Mass/Vol] 41 mg/dL High 9-24 [facility] Comment on above: Order Comment: Speci men Type: BLOOD SPECIMENOrdering Facility: [facility] Address: [address] [place] [address] Performed By: #### 2 4323-8 ####[facility] LABCLIA [id number] [place] [address] CNOVon 12-22-2023 CNOV Normal [facility] CNOVon 12-16-2023 CNOV Normal [facility] CNPNon 12-16-2023 CNPN Normal [facility] CNOVon 12-10-2023 CNOV Normal [facility] CNOVon 12-03-2023 CNOV Normal [facility] CNPNon 12-03-2023 CNPN Normal [facility] CNOVon 12-02-2023 CNOV Normal [facility] CNOVSPon 12-02-2023 CNOVSP Normal [facility] PET+CT Guidance for localiza tion of tumor [...] any questions regarding this interpretation, please call [phone]. If you are unable to reach us at the number above, please feel free to contact [facility] eRadiology at [phone]. DIVISION OF RADIOLOGY * * *Final Report* [...] * Radiopharmaceutical Dose: 6.6 mCi * Radiopharmaceutical: Y15-Nfwkttflgpsamolx se (FDG) COMPARISON: PET/CT 09/15/2023 CORRELATION: CT chest 10/21/2023 RESULT: REFERENCES: SUV reference values: * Blood pool (descending aorta) activity: SUVmax 2.3 * Background liver activity: SUVmax 3.2; SUVmean 2. Candy Attendant (topogram) images: No additional findings. Notes and [...] is likely inflammatory. DIVISION OF RADIOLOGY Provider, [facility] - 11/28/2023 * * *Final Report* * [...] * Radiopharmaceutical Dose: 6.6 mCi * Radiopharmaceutical: D51-Xrzuapuaygigyglc se (FDG) COMPARISON: PET/CT 09/15/2023 CORRELATION: CT chest 10/21/2023 RESULT: REFERENCES: SUV reference values: * Blood pool (descending aorta) activity: SUVmax 2.3 * Background liver activity: SUVmax 3.2; SUVmean 2. Candy Attendant (topogram) images: No additional findings. Notes and [...] neoplastic process. MUSCULOSKELETAL (more content not included)... [facility] PET+CT Guidance for localiza tion of tumor of Skull base to mid-thigh-- W 18F-FDG IVOrdered By: Ccf Provider on 11-28-2023 [facility] THYROID STIMULATING HORMONEo n 11-26-2023 TSH Qn 3.890 m[IU]/L [facility] TSH Qnon 11-26-2023 Interpretation and review of laboratory results Normal [facility] CBC W Auto Differential pane l (Bld)on 11-25-2023 Basophils (Bld) [#/Vol] 0.03 10*3/uL [facility] Basophils/100 WBC (Bld) 0.4 % [facility] Differential cell count method Nom (Bld) Auto [facility] Eosinophils (Bld) [#/Vol] 0.08 10*3/uL [facility] Eosinophils/100 WBC (Bld) 1.1 % [facility] Erythrocyte distribution width (RBC) [Ratio] 14.9 % 11.5 - 15.0 % [facility] Hematocrit (Bld) [Volume fraction] 38.1 % Low 39.0 - 51.0 % [facility] Hemoglobin (Bld) [Mass/Vol] 12.8 g/dL Low 13.0 - 17.0 g/dL [facility] Immature granulocytes (Bld) [#/Vol] 0.03 10*3/uL [facility] Immature granulocytes/100 WBC (Bld) 0.4 % [facility] Interpretation and review of laboratory results Abnormal [facility] Lymphocytes (Bld) [#/Vol] 0.66 10*3/uL Low [facility] Lymphocytes/100 WBC (Bld) 9.4 % [facility] MCH (RBC) [Entitic mass] 31.0 pg 26.0 - 34.0 pg [facility] MCHC (RBC) [Mass/Vol] 33.6 g/dL 30.5 - 36.0 g/dL [facility] MCV (RBC) [Entitic vol] 92.3 fL 80.0 - 100.0 fL [facility] Monocytes (Bld) [#/Vol] 1.02 10*3/uL High [facility] Monocytes/100 WBC (Bld) 14.5 % [facility] Neutrophils (Bld) [#/Vol] 5.22 10*3/uL [facility] Neutrophils/100 WBC (Bld) 74.2 % [facility] Nucleated RBC (Bld) [#/Vol] NINF [facility] Nucleated RBC/100 WBC (Bld) [Ratio] 0.0 % /100 WBC [facility] Platelet mean volume (Bld) [Entitic vol] 10.7 fL 9.0 - 12.7 fL [facility] Platelets (Bld) [#/Vol] 225 10*3/uL [facility] RBC (Bld) [#/Vol] 4.13 10*6/uL Low 4.20 - 6.00 m/uL [facility] WBC (Bld) [#/Vol] 7.04 10*3/uL [facility] Basophils (Bld) [#/Vol] 0.03 10*3/uL Normal <0.11 [facility] Comment on above: Order Comment: Speci men Type: BLOOD SPECIMENOrdering Facility: [facility] Address: [address] [place] [address] Performed By: #### 5 7021-8 ####[facility] LABCLIA [id number] [place] [address] Basophils/100 WBC (Bld) 0.4 % Normal [facility] Comment on above: Order Comment: Speci men Type: BLOOD SPECIMENOrdering Facility: [facility] Address: [address] [place] [address] Performed By: #### 5 7021-8 ####[facility] LABCLIA [id number] [place] [address] Differential cell count method Nom (Bld) Auto Normal [facility] Comment on above: Order Comment: Speci men Type: BLOOD SPECIMENOrdering Facility: [facility] Address: [address] [place] [address] Performed By: #### 5 7021-8 ####[facility] LABCLIA [id number] [place] [address] Eosinophils (Bld) [#/Vol] 0.08 10*3/uL Normal <0.46 [facility] Comment on above: Order Comment: Speci men Type: BLOOD SPECIMENOrdering Facility: [facility] Address: [address] [place] [address] Performed By: #### 5 7021-8 ####[facility] LABCLIA [id number] [place] [address] Eosinophils/100 WBC (Bld) 1.1 % Normal [facility] Comment on above: Order Comment: Speci men Type: BLOOD SPECIMENOrdering Facility: [facility] Address: [address] [place] [address] Performed By: #### 5 7021-8 ####[facility] LABCLIA [id number] [place] [address] Erythrocyte distribution width (RBC) [Ratio] 14.9 % Normal 11.5-15.0 [facility] Comment on above: Order Comment: Speci men Type: BLOOD SPECIMENOrdering Facility: [facility] Address: [address] [place] [address] Performed By: #### 5 7021-8 ####[facility] LABCLIA [id number] [place] [address] Hematocrit (Bld) [Volume fraction] 38.1 % Low 39.0-51.0 [facility] Comment on above: Order Comment: Speci men Type: BLOOD SPECIMENOrdering Facility: [facility] Address: [address] [place] [address] Performed By: #### 5 7021-8 ####[facility] LABCLIA [id number] [place] [address] Hemoglobin (Bld) [Mass/Vol] 12.8 g/dL Low 13.0-17.0 [facility] Comment on above: Order Comment: Speci men Type: BLOOD SPECIMENOrdering Facility: [facility] Address: [address] [place] [address] Performed By: #### 5 7021-8 ####[facility] LABCLIA [id number] [place] [address] Immature granulocytes (Bld) [#/Vol] 0.03 10*3/uL Normal <0.10 [facility] Comment on above: Order Comment: Speci men Type: BLOOD SPECIMENOrdering Facility: [facility] Address: [address] [place] [address] Performed By: #### 5 7021-8 ####[facility] LABCLIA [id number] [place] [address] Immature granulocytes/100 WBC (Bld) 0.4 % Normal [facility] Comment on above: Order Comment: Speci men Type: BLOOD SPECIMENOrdering Facility: [facility] Address: [address] [place] [address] Performed By: #### 5 7021-8 ####[facility] LABCLIA [id number] [place] [address] Lymphocytes (Bld) [#/Vol] 0.66 10*3/uL Low 1.00-4.00 [facility] Comment on above: Order Comment: Speci men Type: BLOOD SPECIMENOrdering Facility: [facility] Address: [address] [place] [address] Performed By: #### 5 7021-8 ####[facility] LABCLIA [id number] [place] [address] Lymphocytes/100 WBC (Bld) 9.4 % Normal [facility] Comment on above: Order Comment: Speci men Type: BLOOD SPECIMENOrdering Facility: [facility] Address: [address] [place] [address] Performed By: #### 5 7021-8 ####[facility] LABCLIA [id number] [place] [address] MCH (RBC) [Entitic mass] 31.0 pg Normal 26.0-34.0 [facility] Comment on above: Order Comment: Speci men Type: BLOOD SPECIMENOrdering Facility: [facility] Address: [address] [place] [address] Performed By: #### 5 7021-8 ####[facility] LABCLIA [id number] [place] [address] MCHC (RBC) [Mass/Vol] 33.6 g/dL Normal 30.5-36.0 [facility] Comment on above: Order Comment: Speci men Type: BLOOD SPECIMENOrdering Facility: [facility] Address: [address] [place] [address] Performed By: #### 5 7021-8 ####[facility] LABCLIA [id number] [place] [address] MCV (RBC) [Entitic vol] 92.3 fL Normal 80.0-100.0 [facility] Comment on above: Order Comment: Speci men Type: BLOOD SPECIMENOrdering Facility: [facility] Address: [address] [place] [address] Performed By: #### 5 7021-8 ####[facility] LABCLIA [id number] [place] [address] Monocytes (Bld) [#/Vol] 1.02 10*3/uL High <0.87 [facility] Comment on above: Order Comment: Speci men Type: BLOOD SPECIMENOrdering Facility: [facility] Address: [address] [place] [address] Performed By: #### 5 7021-8 ####[facility] LABCLIA [id number] [place] [address] Monocytes/100 WBC (Bld) 14.5 % Normal [facility] Comment on above: Order Comment: Speci men Type: BLOOD SPECIMENOrdering Facility: [facility] Address: [address] [place] [address] Performed By: #### 5 7021-8 ####[facility] LABCLIA [id number] [place] [address] Neutrophils (Bld) [#/Vol] 5.22 10*3/uL Normal 1.45-7.50 [facility] Comment on above: Order Comment: Speci men Type: BLOOD SPECIMENOrdering Facility: [facility] Address: [address] [place] [address] Performed By: #### 5 7021-8 ####[facility] LABCLIA [id number] [place] [address] Neutrophils/100 WBC (Bld) 74.2 % Normal [facility] Comment on above: Order Comment: Speci men Type: BLOOD SPECIMENOrdering Facility: [facility] Address: [address] [place] [address] Performed By: #### 5 7021-8 ####[facility] LABCLIA [id number] [place] [address] Nucleated RBC (Bld) [#/Vol] 10*3/uL Normal <0.01 [facility] Comment on above: Order Comment: Speci men Type: BLOOD SPECIMENOrdering Facility: [facility] Address: [address] [place] [address] Performed By: #### 5 7021-8 ####[facility] LABCLIA [id number] [place] [address] Nucleated RBC/100 WBC (Bld) [Ratio] 0.0 /100 WBC Normal [facility] Comment on above: Order Comment: Speci men Type: BLOOD SPECIMENOrdering Facility: [facility] Address: [address] [place] [address] Performed By: #### 5 7021-8 ####[facility] LABCLIA [id number] [place] [address] Platelet mean volume (Bld) [Entitic vol] 10.7 fL Normal 9.0-12.7 [facility] Comment on above: Order Comment: Speci men Type: BLOOD SPECIMENOrdering Facility: [facility] Address: [address] [place] [address] Performed By: #### 5 7021-8 ####[facility] LABCLIA [id number] [place] [address] Platelets (Bld) [#/Vol] 225 10*3/uL Normal 150-400 [facility] Comment on above: Order Comment: Speci men Type: BLOOD SPECIMENOrdering Facility: [facility] Address: [address] [place] [address] Performed By: #### 5 7021-8 ####[facility] LABIA [id number] [place] [address] RBC (Bld) [#/Vol] 4.13 10*6/uL Low 4.20-6.00 [facility] Comment on above: Order Comment: Speci men Type: BLOOD SPECIMENOrdering Facility: [facility] Address: [address] [place] [address] Performed By: #### 5 7021-8 ####[facility] LABIA [id number] [place] [address] WBC (Bld) [#/Vol] 7.04 10*3/uL Normal 3.70-11.00 [facility] Comment on above: Order Comment: Speci men Type: BLOOD SPECIMENOrdering Facility: [facility] Address: [address] [place] [address] Performed By: #### 5 7021-8 ####[facility] LABIA [id number] [place] [address] Comprehensive metabolic 2000 panelOrdered By: Sim Pereyra on 11-25-2023 Albumin [Mass/Vol] 3.8 g/dL Low 3.9 - 4.9 g/dL [facility] ALP [Catalytic activity/Vol] 51 U/L 38 - 113 U/L [facility] ALT [Catalytic activity/Vol] 25 U/L 10 - 54 U/L [facility] Anion gap [Moles/Vol] 12 mmol/L 9 - 18 mmol/L [facility] AST [Catalytic activity/Vol] 18 U/L 14 - 40 U/L [facility] Bilirubin [Mass/Vol] 0.8 mg/dL 0.2 - 1.3 mg/dL [facility] Calcium [Mass/Vol] 9.1 mg/dL 8.5 - 10.2 mg/dL [facility] Chloride [Moles/Vol] 100 mmol/L 97 - 105 mmol/L [facility] CO2 [Moles/Vol] 25 mmol/L 22 - 30 mmol/L [facility] Creatinine [Mass/Vol] 1.20 mg/dL 0.73 - 1.22 mg/dL [facility] GFR/1.73 sq M.predicted among non-blacks MDRD (S/P/Bld) [Vol rate/Area] 67 mL/min/{1.73_m2} - PINF [facility] Comment on above: Estimated Glomerular [...] 100 mg/dL High 74 - 99 mg/dL [facility] Comment on above: The [place] Diabete s Association (ADA) provides guidance for [...] Standards of Medical Care in Diabetes 2016, [place] [employer]. Diabetes Care. 2016.39(Suppl 1). Interpretation and review of laboratory results Abnormal [facility] Potassium [Moles/Vol] 3.9 mmol/L 3.7 - 5.1 mmol/L [facility] Protein [Mass/Vol] 7.3 g/dL 6.3 - 8.0 g/dL [facility] Sodium [Moles/Vol] 137 mmol/L 136 - 144 mmol/L [facility] Urea nitrogen [Mass/Vol] 15 mg/dL 9 - 24 mg/dL [facility] Comprehensive metabolic 2000 panelon 11-25-2023 Albumin [Mass/Vol] 3.8 g/dL Low 3.9-4.9 [facility] Comment on above: Order Comment: Speci men Type: BLOOD SPECIMENOrdering Facility: [facility] Address: [address] [place] [address] Performed By: #### 2 4323-8 ####[facility] LABCLIA [id number] [place] [address] ALP [Catalytic activity/Vol] 51 U/L Normal 38-113 [facility] Comment on above: Order Comment: Speci men Type: BLOOD SPECIMENOrdering Facility: [facility] Address: [address] [place] [address] Performed By: #### 2 4323-8 ####[facility] LABCLIA [id number] [place] [address] ALT [Catalytic activity/Vol] 25 U/L Normal 10-54 [facility] Comment on above: Order Comment: Speci men Type: BLOOD SPECIMENOrdering Facility: [facility] Address: [address] [place] [address] Performed By: #### 2 4323-8 ####[facility] LABCLIA [id number] [place] [address] Anion gap [Moles/Vol] 12 mmol/L Normal 9-18 [facility] Comment on above: Order Comment: Speci men Type: BLOOD SPECIMENOrdering Facility: [facility] Address: [address] [place] [address] Performed By: #### 2 4323-8 ####[facility] LABCLIA [id number] [place] [address] AST [Catalytic activity/Vol] 18 U/L Normal 14-40 [facility] Comment on above: Order Comment: Speci men Type: BLOOD SPECIMENOrdering Facility: [facility] Address: [address] [place] [address] Performed By: #### 2 4323-8 ####[facility] LABCLIA [id number] [place] [address] Bilirubin [Mass/Vol] 0.8 mg/dL Normal 0.2-1.3 [facility] Comment on above: Order Comment: Speci men Type: BLOOD SPECIMENOrdering Facility: [facility] Address: [address] [place] [address] Performed By: #### 2 4323-8 ####[facility] LABCLIA [id number] [place] [address] Calcium [Mass/Vol] 9.1 mg/dL Normal 8.5-10.2 [facility] Comment on above: Order Comment: Speci men Type: BLOOD SPECIMENOrdering Facility: [facility] Address: [address] [place] [address] Performed By: #### 2 4323-8 ####[facility] LABCLIA [id number] [place] [address] Chloride [Moles/Vol] 100 mmol/L Normal 97-105 [facility] Comment on above: Order Comment: Speci men Type: BLOOD SPECIMENOrdering Facility: [facility] Address: [address] [place] [address] Performed By: #### 2 4323-8 ####[facility] LABCLIA [id number] [place] [address] CO2 [Moles/Vol] 25 mmol/L Normal 22-30 [facility] Comment on above: Order Comment: Speci men Type: BLOOD SPECIMENOrdering Facility: [facility] Address: [address] [place] [address] Performed By: #### 2 4323-8 ####[facility] LABCLIA [id number] [place] [address] Creatinine [Mass/Vol] 1.20 mg/dL Normal 0.73-1.22 [facility] Comment on above: Order Comment: Ajay rausch Type: BLOOD SPECIMENOrdering Facility: [facility] Address: [address] [place], [place] [address] Performed By: #### 2 4323-8 ####[facility] LABCLIA [id number] [place] [address] Creatinine and Glomerular filtration rate.predicted panel (S/P/Bld) 67 mL/min/1.73m??? Normal >=60 [facility] Comment on above: Order Comment: Speci men Type: BLOOD SPECIMENOrdering Facility: [facility] Address: [address] [place] [address] Result Comment: Landy mated Glomerular Filtration Rate [...] actual GFR. Performed By: #### 2 4323-8 ####[facility] LABCLIA [id number] [place] [address] Glucose [Mass/Vol] 100 mg/dL High 74-99 [facility] Comment on above: Order Comment: Ajay shalom Type: BLOOD SPECIMENOrdering Facility: [facility] Address: [address] [place], [place] [address] Result Comment: The [place] Diabetes Association (ADA) provides guidance for cutoff [...] Standards of Medical Care in Diabetes 2016, [place] [employer] Association. Diabetes Care. 2016.39(Suppl 1). Performed By: #### 2 4323-8 ####[facility] LABCLIA [id number] [place] [address] Potassium [Moles/Vol] 3.9 mmol/L Normal 3.7-5.1 [facility] Comment on above: Order Comment: Speci men Type: BLOOD SPECIMENOrdering Facility: [facility] Address: [address] [place] [address] Performed By: #### 2 4323-8 ####[facility] LABCLIA [id number] [place] [address] Protein [Mass/Vol] 7.3 g/dL Normal 6.3-8.0 [facility] Comment on above: Order Comment: Speci men Type: BLOOD SPECIMENOrdering Facility: [facility] Address: [address] [place] [address] Performed By: #### 2 4323-8 ####[facility] LABCLIA [id number] [place] [address] Sodium [Moles/Vol] 137 mmol/L Normal 136-144 [facility] Comment on above: Order Comment: Speci men Type: BLOOD SPECIMENOrdering Facility: [facility] Address: [address] [place] [address] Performed By: #### 2 4323-8 ####[facility] LABCLIA [id number] [place] [address] Urea nitrogen [Mass/Vol] 15 mg/dL Normal 9-24 [facility] Comment on above: Order Comment: Speci men Type: BLOOD SPECIMENOrdering Facility: [facility] Address: [address] [place] [address] Performed By: #### 2 4323-8 ####[facility] LABCLIA [id number] [place] [address] GLUCOSE, BLOOD (POC)on 11-24 Glucose [Mass/Vol] 95 mg/dL 74 - 99 mg/dL [facility] Comment on above: Location:[facility], [address] [place] [address] , [place], [place], [address] The Accu-Chek Inform II glucose meter has [...] blood gas instrument) in the above situations. [facility] NM PET/CT SKULL-THIGH SUBQon 11-25-2023 NM PET/CT SKULL-THIGH SUBQ Normal [facility] PET+CT Guidance for localiza tion of tumor of Skull base to mid-thigh-- W 18F-FDG Anoop 11-25-2023 Radiology Study observation (narrative) [facility] TSH SerPl-aCncon 11-25-2023 TSH Qn 3.890 m[IU]/L Normal 0.270-4.200 [facility] Comment on above: Order Comment: Speci men Type: BLOOD SPECIMENOrdering Facility: [facility] Address: [address] [place] [address] Performed By: #### 3 016-3 ####[facility] LABCLIA [id number] [place] [address] [place] CNPNon 11-24-2023 CNPN Normal [facility] CNOVon 11-21-2023 CNOV Normal [facility] CNPNon 11-11-2023 CNPN Normal [facility] CBC W Auto Differential pane l (Bld)on 11-04-2023 Basophils (Bld) [#/Vol] <0.11 k/uL [facility] Basophils/100 WBC (Bld) 0.4 % [facility] Differential cell count method Nom (Bld) Auto [facility] Eosinophils (Bld) [#/Vol] 0.16 10*3/uL <0.46 k/uL [facility] [facility] Eosin[facility]/100 WBC (Bld) 2.9 % [facility] Erythrocyte distribution width (RBC) [Ratio] 17.0 % High 11.5 - 15.0 % [facility] Hematocrit (Bld) [Volume fraction] 37.1 % Low 39.0 - 51.0 % [facility] Hemoglobin (Bld) [Mass/Vol] 12.5 g/dL Low 13.0 - 17.0 g/dL [facility] Immature granulocytes (Bld) [#/Vol] 0.03 10*3/uL <0.10 k/uL [facility] Immature granulocytes/100 WBC (Bld) 0.5 % [facility] Lymphocytes (Bld) [#/Vol] 0.86 10*3/uL Low 1.00 - 4.00 k/uL [facility] Lymphocytes/100 WBC (Bld) 15.4 % [facility] MCH (RBC) [Entitic mass] 30.9 pg 26.0 - 34.0 pg [facility] MCHC (RBC) [Mass/Vol] 33.7 g/dL 30.5 - 36.0 g/dL [facility] MCV (RBC) [Entitic vol] 91.6 fL 80.0 - 100.0 fL [facility] Monocytes (Bld) [#/Vol] 0.95 10*3/uL High <0.87 k/uL [facility] Monocytes/100 WBC (Bld) 17.0 % [facility] Neutrophils (Bld) [#/Vol] 3.57 10*3/uL 1.45 - 7.50 k/uL [facility] Neutrophils/100 WBC (Bld) 63.8 % [facility] Nucleated RBC (Bld) [#/Vol] <0.01 k/uL [facility] Nucleated RBC/100 WBC (Bld) [Ratio] 0.0 /100 WBC [facility] Platelet mean volume (Bld) [Entitic vol] 10.7 fL 9.0 - 12.7 fL [facility] Platelets (Bld) [#/Vol] 186 10*3/uL 150 - 400 k/uL [facility] RBC (Bld) [#/Vol] 4.05 10*6/uL Low 4.20 - 6.00 m/uL [facility] WBC (Bld) [#/Vol] 5.59 10*3/uL 3.70 - 11.00 k/u L [facility] Basophils (Bld) [#/Vol] 10*3/uL Normal <0.11 [facility] Comment on above: Order Comment: Speci men Type: BLOOD SPECIMENOrdering Facility: [facility] Address: [address] [place] [address] Performed By: #### 5 7021-8 ####[facility] LABCLIA [id number] [place] [address] Basophils/100 WBC (Bld) 0.4 % Normal [facility] Comment on above: Order Comment: Speci men Type: BLOOD SPECIMENOrdering Facility: [facility] Address: [address] [place] [address] Performed By: #### 5 7021-8 ####[facility] LABCLIA [id number] [place] [address] Differential cell count method Nom (Bld) Auto Normal [facility] Comment on above: Order Comment: Speci men Type: BLOOD SPECIMENOrdering Facility: [facility] Address: [address] [place] [address] Performed By: #### 5 7021-8 ####[facility] LABCLIA [id number] [place] [address] Eosinophils (Bld) [#/Vol] 0.16 10*3/uL Normal <0.46 [facility] Comment on above: Order Comment: Speci men Type: BLOOD SPECIMENOrdering Facility: [facility] Address: [address] [place] [address] Performed By: #### 5 7021-8 ####[facility] LABCLIA [id number] [place] [address] Eosinophils/100 WBC (Bld) 2.9 % Normal [facility] Comment on above: Order Comment: Speci men Type: BLOOD SPECIMENOrdering Facility: [facility] Address: [address] [place] [address] Performed By: #### 5 7021-8 ####[facility] LABCLIA [id number] [place] [address] Erythrocyte distribution width (RBC) [Ratio] 17.0 % High 11.5-15.0 [facility] Comment on above: Order Comment: Speci men Type: BLOOD SPECIMENOrdering Facility: [facility] Address: [address] [place] [address] Performed By: #### 5 7021-8 ####[facility] LABCLIA [id number] [place] [address] Hematocrit (Bld) [Volume fraction] 37.1 % Low 39.0-51.0 [facility] Comment on above: Order Comment: Speci men Type: BLOOD SPECIMENOrdering Facility: [facility] Address: [address] [place] [address] Performed By: #### 5 7021-8 ####[facility] LABCLIA [id number] [place] [address] Hemoglobin (Bld) [Mass/Vol] 12.5 g/dL Low 13.0-17.0 [facility] Comment on above: Order Comment: Speci men Type: BLOOD SPECIMENOrdering Facility: [facility] Address: [address] [place] [address] Performed By: #### 5 7021-8 ####[facility] LABCLIA [id number] [place] [address] Immature granulocytes (Bld) [#/Vol] 0.03 10*3/uL Normal <0.10 [facility] Comment on above: Order Comment: Speci men Type: BLOOD SPECIMENOrdering Facility: [facility] Address: [address] [place] [address] Performed By: #### 5 7021-8 ####[facility] LABCLIA [id number] [place] [address] Immature granulocytes/100 WBC (Bld) 0.5 % Normal [facility] Comment on above: Order Comment: Speci men Type: BLOOD SPECIMENOrdering Facility: [facility] Address: [address] [place] [address] Performed By: #### 5 7021-8 ####[facility] LABCLIA [id number] [place] [address] Lymphocytes (Bld) [#/Vol] 0.86 10*3/uL Low 1.00-4.00 [facility] Comment on above: Order Comment: Speci men Type: BLOOD SPECIMENOrdering Facility: [facility] Address: [address] [place] [address] Performed By: #### 5 7021-8 ####[facility] LABCLIA [id number] [place] [address] Lymphocytes/100 WBC (Bld) 15.4 % Normal [facility] Comment on above: Order Comment: Speci men Type: BLOOD SPECIMENOrdering Facility: [facility] Address: [address] [place] [address] Performed By: #### 5 7021-8 ####[facility] LABCLIA [id number] [place] [address] MCH (RBC) [Entitic mass] 30.9 pg Normal 26.0-34.0 [facility] Comment on above: Order Comment: Speci men Type: BLOOD SPECIMENOrdering Facility: [facility] Address: [address] [place] [address] Performed By: #### 5 7021-8 ####[facility] LABCLIA [id number] [place] [address] MCHC (RBC) [Mass/Vol] 33.7 g/dL Normal 30.5-36.0 [facility] Comment on above: Order Comment: Speci men Type: BLOOD SPECIMENOrdering Facility: [facility] Address: [address] [place] [address] Performed By: #### 5 7021-8 ####[facility] LABCLIA [id number] [place] [address] MCV (RBC) [Entitic vol] 91.6 fL Normal 80.0-100.0 [facility] Comment on above: Order Comment: Speci men Type: BLOOD SPECIMENOrdering Facility: [facility] Address: [address] [place] [address] Performed By: #### 5 7021-8 ####[facility] LABCLIA [id number] [place] [address] Monocytes (Bld) [#/Vol] 0.95 10*3/uL High <0.87 [facility] Comment on above: Order Comment: Speci men Type: BLOOD SPECIMENOrdering Facility: [facility] Address: [address] [place] [address] Performed By: #### 5 7021-8 ####[facility] LABCLIA [id number] [place] [address] Monocytes/100 WBC (Bld) 17.0 % Normal [facility] Comment on above: Order Comment: Speci men Type: BLOOD SPECIMENOrdering Facility: [facility] Address: [address] [place] [address] Performed By: #### 5 7021-8 ####[facility] LABCLIA [id number] [place] [address] Neutrophils (Bld) [#/Vol] 3.57 10*3/uL Normal 1.45-7.50 [facility] Comment on above: Order Comment: Speci men Type: BLOOD SPECIMENOrdering Facility: [facility] Address: [address] [place] [address] Performed By: #### 5 7021-8 ####[facility] LABCLIA [id number] [place] [address] Neutrophils/100 WBC (Bld) 63.8 % Normal [facility] Comment on above: Order Comment: Speci men Type: BLOOD SPECIMENOrdering Facility: [facility] Address: [address] [place] [address] Performed By: #### 5 7021-8 ####[facility] LABCLIA [id number] [place] [address] Nucleated RBC (Bld) [#/Vol] 10*3/uL Normal <0.01 [facility] Comment on above: Order Comment: Speci men Type: BLOOD SPECIMENOrdering Facility: [facility] Address: [address] [place] [address] Performed By: #### 5 7021-8 ####[facility] LABCLIA [id number] [place] [address] Nucleated RBC/100 WBC (Bld) [Ratio] 0.0 /100 WBC Normal [facility] Comment on above: Order Comment: Speci men Type: BLOOD SPECIMENOrdering Facility: [facility] Address: [address] [place] [address] Performed By: #### 5 7021-8 ####[facility] LABCLIA [id number] [place] [address] Platelet mean volume (Bld) [Entitic vol] 10.7 fL Normal 9.0-12.7 [facility] Comment on above: Order Comment: Speci men Type: BLOOD SPECIMENOrdering Facility: [facility] Address: [address] [place] [address] Performed By: #### 5 7021-8 ####[facility] LABCLIA [id number] [place] [address] Platelets (Bld) [#/Vol] 186 10*3/uL Normal 150-400 [facility] Comment on above: Order Comment: Speci men Type: BLOOD SPECIMENOrdering Facility: [facility] Address: [address] [place] [address] Performed By: #### 5 7021-8 ####[facility] LABCLIA [id number] [place] [address] RBC (Bld) [#/Vol] 4.05 10*6/uL Low 4.20-6.00 [facility] Comment on above: Order Comment: Speci men Type: BLOOD SPECIMENOrdering Facility: [facility] Address: [address] [place] [address] Performed By: #### 5 7021-8 ####[facility] LABCLIA [id number] [place] [address] WBC (Bld) [#/Vol] 5.59 10*3/uL Normal 3.70-11.00 [facility] Comment on above: Order Comment: Speci men Type: BLOOD SPECIMENOrdering Facility: [facility] Address: [address] [place] [address] Performed By: #### 5 7021-8 ####[facility] LABCLIA [id number] [place] [address] CNCNPATEDon 11-04-2023 CNCNPATED Normal [facility] CNOVSPon 11-04-2023 CNOVSP Normal [facility] CNPNon 11-04-2023 CNPN Normal [facility] Comprehensive metabolic 2000 panelon 11-04-2023 Albumin [Mass/Vol] 4.0 g/dL 3.9 - 4.9 g/dL [facility] ALP [Catalytic activity/Vol] 65 U/L 38 - 113 U/L [facility] ALT [Catalytic activity/Vol] 415 U/L High 10 - 54 U/L [facility] Anion gap [Moles/Vol] 14 mmol/L 9 - 18 mmol/L [facility] AST [Catalytic activity/Vol] 100 U/L High 14 - 40 U/L [facility] Bilirubin [Mass/Vol] 1.0 mg/dL 0.2 - 1.3 mg/dL [facility] Calcium [Mass/Vol] 9.9 mg/dL 8.5 - 10.2 mg/dL [facility] Chloride [Moles/Vol] 107 mmol/L High 97 - 105 mmol/L [facility] CO2 [Moles/Vol] 23 mmol/L 22 - 30 mmol/L [facility] Creatinine [Mass/Vol] 1.23 mg/dL High 0.73 - 1.22 mg/dL [facility] Estimated Glomerular Filtration Rate 65 mL/min/1.73m >=60 mL/min/1.73m [facility] Glucose [Mass/Vol] 95 mg/dL 74 - 99 mg/dL [facility] Potassium [Moles/Vol] 3.5 mmol/L Low 3.7 - 5.1 mmol/L [facility] Protein [Mass/Vol] 7.3 g/dL 6.3 - 8.0 g/dL [facility] Sodium [Moles/Vol] 144 mmol/L 136 - 144 mmol/L [facility] Urea nitrogen [Mass/Vol] 19 mg/dL 9 - 24 mg/dL [facility] Albumin [Mass/Vol] 4.0 g/dL Normal 3.9-4.9 [facility] Comment on above: Order Comment: Speci men Type: BLOOD SPECIMENOrdering Facility: [facility] Address: [address] [place] [address] Performed By: #### 2 4323-8 ####[facility] LABCLIA [id number] [place] [address] ALP [Catalytic activity/Vol] 65 U/L Normal 38-113 [facility] Comment on above: Order Comment: Speci men Type: BLOOD SPECIMENOrdering Facility: [facility] Address: [address] [place] [address] Performed By: #### 2 4323-8 ####[facility] LABCLIA [id number] [place] [address] ALT [Catalytic activity/Vol] 415 U/L High 10-54 [facility] Comment on above: Order Comment: Speci men Type: BLOOD SPECIMENOrdering Facility: [facility] Address: [address] [place] [address] Performed By: #### 2 4323-8 ####[facility] LABIA [id number] [place] [address] Anion gap [Moles/Vol] 14 mmol/L Normal 9-18 [facility] Comment on above: Order Comment: Speci men Type: BLOOD SPECIMENOrdering Facility: [facility] Address: [address] [place] [address] Performed By: #### 2 4323-8 ####[facility] LABCLIA [id number] [place] [address] AST [Catalytic activity/Vol] 100 U/L High 14-40 [facility] Comment on above: Order Comment: Speci men Type: BLOOD SPECIMENOrdering Facility: [facility] Address: [address] [place] [address] Performed By: #### 2 4323-8 ####[facility] LABCLIA [id number] [place] [address] Bilirubin [Mass/Vol] 1.0 mg/dL Normal 0.2-1.3 [facility] Comment on above: Order Comment: Speci men Type: BLOOD SPECIMENOrdering Facility: [facility] Address: [address] [place] [address] Performed By: #### 2 4323-8 ####[facility] LABCLIA [id number] [place] [address] Calcium [Mass/Vol] 9.9 mg/dL Normal 8.5-10.2 [facility] Comment on above: Order Comment: Speci men Type: BLOOD SPECIMENOrdering Facility: [facility] Address: [address] [place] [address] Performed By: #### 2 4323-8 ####[facility] LABCLIA [id number] [place] [address] Chloride [Moles/Vol] 107 mmol/L High 97-105 [facility] Comment on above: Order Comment: Speci men Type: BLOOD SPECIMENOrdering Facility: [facility] Address: [address] [place] [address] Performed By: #### 2 4323-8 ####[facility] LABCLIA [id number] [place] [address] CO2 [Moles/Vol] 23 mmol/L Normal 22-30 [facility] Comment on above: Order Comment: Speci men Type: BLOOD SPECIMENOrdering Facility: [facility] Address: [address] [place] [address] Performed By: #### 2 4323-8 ####[facility] LABCLIA [id number] [place] [address] Creatinine [Mass/Vol] 1.23 mg/dL High 0.73-1.22 [facility] Comment on above: Order Comment: Speci men Type: BLOOD SPECIMENOrdering Facility: [facility] Address: [address] [place] [address] Performed By: #### 2 4323-8 ####[facility] LABCLIA [id number] [place] [address] Creatinine and Glomerular filtration rate.predicted panel (S/P/Bld) 65 mL/min/1.73m??? Normal >=60 [facility] Comment on above: Order Comment: Speci men Type: BLOOD SPECIMENOrdering Facility: [facility] Address: [address] [place] [address] Result Comment: Landy mated Glomerular Filtration Rate [...] actual GFR. Performed By: #### 2 4323-8 ####[facility] LABCLIA [id number] [place] [address] Glucose [Mass/Vol] 95 mg/dL Normal 74-99 [facility] Comment on above: Order Comment: Speci men Type: BLOOD SPECIMENOrdering Facility: [facility] Address: [address] [place] [address] Result Comment: The [place] [employer] (ADA) provides guidance for cutoff [...] Standards of Medical Care in Diabetes 2016, [place] [employer]. Diabetes Care. 2016.39(Suppl 1). Performed By: #### 2 4323-8 ####[facility] LABCLIA [id number] [place] [address] Potassium [Moles/Vol] 3.5 mmol/L Low 3.7-5.1 [facility] Comment on above: Order Comment: Speci men Type: BLOOD SPECIMENOrdering Facility: [facility] Address: [address] [place] [address] Performed By: #### 2 4323-8 ####[facility] LABCLIA [id number] [place] [address] Protein [Mass/Vol] 7.3 g/dL Normal 6.3-8.0 [facility] Comment on above: Order Comment: Speci men Type: BLOOD SPECIMENOrdering Facility: [facility] Address: [address] [place] [address] Performed By: #### 2 4323-8 ####[facility] LABCLIA [id number] [place] [address] Sodium [Moles/Vol] 144 mmol/L Normal 136-144 [facility] Comment on above: Order Comment: Speci men Type: BLOOD SPECIMENOrdering Facility: [facility] Address: [address] [place] [address] Performed By: #### 2 4323-8 ####[facility] LABCLIA [id number] [place] [address] Urea nitrogen [Mass/Vol] 19 mg/dL Normal 9-24 [facility] Comment on above: Order Comment: Speci men Type: BLOOD SPECIMENOrdering Facility: [facility] Address: [address] [place] [address] Performed By: #### 2 4323-8 ####[facility] LABCLIA [id number] [place] [address] CNPNon 10-24-2023 CNPN Normal [facility] CNPNon 10-21-2023 CNPN Normal [facility] CT CHEST W IVCONon CT CHEST W IVCON Normal [facility] CT Chest W contrast Anoop IMPRESSION: [...] any questions regarding this interpretation, please call [phone]. If you are unable to reach us at the number above, please feel free to contact [facility] eRadiology at [phone]. DIVISION OF RADIOLOGY * * *Final Report* [...] No abnormality in the imaged upper abdomen. Candy Attendant (topogram) images: No additional findings. DIVISION OF RADIOLOGY Provider, [facility] - 10/21/2023 * * *Final Report* * [...] No abnormality in the imaged upper abdomen. Candy Attendant (topogram) images: No additional findings. IMPRESSION IMPRESSION: [...] any questions regarding this interpretation, please call [phone]. If you are unable to reach us at the number above, please feel free to contact [facility] eRadiology at [phone]. [facility] Radiology Study observation (narrative) [facility] CT Chest W contrast IVOrdere d By: Ccf Provider on 10-21-2023 [facility] CBC W Auto Differential pane l (Bld)on 10-20-2023 Basophils (Bld) [#/Vol] <0.11 k/uL [facility] Basophils/100 WBC (Bld) 0.4 % [facility] Differential cell count method Nom (Bld) Auto [facility] Eosinophils (Bld) [#/Vol] 0.07 10*3/uL <0.46 k/uL [facility] Eosinophils/100 WBC (Bld) 1.3 % [facility] Erythrocyte distribution width (RBC) [Ratio] 15.9 % High 11.5 - 15.0 % [facility] Hematocrit (Bld) [Volume fraction] 40.6 % 39.0 - 51.0 % [facility] Hemoglobin (Bld) [Mass/Vol] 13.6 g/dL 13.0 - 17.0 g/dL [facility] Immature granulocytes (Bld) [#/Vol] 0.03 10*3/uL <0.10 k/uL [facility] Immature granulocytes/100 WBC (Bld) 0.5 % [facility] Lymphocytes (Bld) [#/Vol] 1.04 10*3/uL 1.00 - 4.00 k/uL [facility] Lymphocytes/100 WBC (Bld) 18.6 % [facility] MCH (RBC) [Entitic mass] 30.4 pg 26.0 - 34.0 pg [facility] MCHC (RBC) [Mass/Vol] 33.5 g/dL 30.5 - 36.0 g/dL [facility] MCV (RBC) [Entitic vol] 90.6 fL 80.0 - 100.0 fL [facility] Monocytes (Bld) [#/Vol] 0.78 10*3/uL <0.87 k/uL [facility] Monocytes/100 WBC (Bld) 13.9 % [facility] Neutrophils (Bld) [#/Vol] 3.66 10*3/uL 1.45 - 7.50 k/uL [facility] Neutrophils/100 WBC (Bld) 65.3 % [facility] Nucleated RBC (Bld) [#/Vol] <0.01 k/uL [facility] Nucleated RBC/100 WBC (Bld) [Ratio] 0.0 /100 WBC [facility] Platelet mean volume (Bld) [Entitic vol] 10.7 fL 9.0 - 12.7 fL [facility] Platelets (Bld) [#/Vol] 214 10*3/uL 150 - 400 k/uL [facility] RBC (Bld) [#/Vol] 4.48 10*6/uL 4.20 - 6.00 m/uL [facility] WBC (Bld) [#/Vol] 5.60 10*3/uL 3.70 - 11.00 k/u L [facility] Basophils (Bld) [#/Vol] 10*3/uL Normal <0.11 [facility] Comment on above: Order Comment: Speci men Type: BLOOD SPECIMENOrdering Facility: [facility] Address: [address] [place] [address] Performed By: #### 5 7021-8 ####[facility] LABCLIA [id number] [place] [address] Basophils/100 WBC (Bld) 0.4 % Normal [facility] Comment on above: Order Comment: Speci men Type: BLOOD SPECIMENOrdering Facility: [facility] Address: [address] [place] [address] Performed By: #### 5 7021-8 ####[facility] LABCLIA [id number] [place] [address] Differential cell count method Nom (Bld) Auto Normal [facility] Comment on above: Order Comment: Speci men Type: BLOOD SPECIMENOrdering Facility: [facility] Address: [address] [place] [address] Performed By: #### 5 7021-8 ####[facility] LABCLIA [id number] [place] [address] Eosinophils (Bld) [#/Vol] 0.07 10*3/uL Normal <0.46 [facility] Comment on above: Order Comment: Speci men Type: BLOOD SPECIMENOrdering Facility: [facility] Address: [address] [place] [address] Performed By: #### 5 7021-8 ####[facility] LABCLIA [id number] [place] [address] Eosinophils/100 WBC (Bld) 1.3 % Normal [facility] Comment on above: Order Comment: Speci men Type: BLOOD SPECIMENOrdering Facility: [facility] Address: [address] [place] [address] Performed By: #### 5 7021-8 ####[facility] LABCLIA [id number] [place] [address] Erythrocyte distribution width (RBC) [Ratio] 15.9 % High 11.5-15.0 [facility] Comment on above: Order Comment: Speci men Type: BLOOD SPECIMENOrdering Facility: [facility] Address: [address] [place] [address] Performed By: #### 5 7021-8 ####[facility] LABCLIA [id number] [place] [address] Hematocrit (Bld) [Volume fraction] 40.6 % Normal 39.0-51.0 [facility] Comment on above: Order Comment: Speci men Type: BLOOD SPECIMENOrdering Facility: [facility] Address: [address] [place] [address] Performed By: #### 5 7021-8 ####[facility] LABCLIA [id number] [place] [address] Hemoglobin (Bld) [Mass/Vol] 13.6 g/dL Normal 13.0-17.0 [facility] Comment on above: Order Comment: Speci men Type: BLOOD SPECIMENOrdering Facility: [facility] Address: [address] [place] [address] Performed By: #### 5 7021-8 ####[facility] LABCLIA [id number] [place] [address] Immature granulocytes (Bld) [#/Vol] 0.03 10*3/uL Normal <0.10 [facility] Comment on above: Order Comment: Speci men Type: BLOOD SPECIMENOrdering Facility: [facility] Address: [address] [place] [address] Performed By: #### 5 7021-8 ####[facility] LABCLIA [id number] [place] [address] Immature granulocytes/100 WBC (Bld) 0.5 % Normal [facility] Comment on above: Order Comment: Speci men Type: BLOOD SPECIMENOrdering Facility: [facility] Address: [address] [place] [address] Performed By: #### 5 7021-8 ####[facility] LABCLIA [id number] [place] [address] Lymphocytes (Bld) [#/Vol] 1.04 10*3/uL Normal 1.00-4.00 [facility] Comment on above: Order Comment: Speci men Type: BLOOD SPECIMENOrdering Facility: [facility] Address: [address] [place] [address] Performed By: #### 5 7021-8 ####[facility] LABCLIA [id number] [place] [address] Lymphocytes/100 WBC (Bld) 18.6 % Normal [facility] Comment on above: Order Comment: Speci men Type: BLOOD SPECIMENOrdering Facility: [facility] Address: [address] [place] [address] Performed By: #### 5 7021-8 ####[facility] LABCLIA [id number] [place] [address] MCH (RBC) [Entitic mass] 30.4 pg Normal 26.0-34.0 [facility] Comment on above: Order Comment: Speci men Type: BLOOD SPECIMENOrdering Facility: [facility] Address: [address] [place] [address] Performed By: #### 5 7021-8 ####[facility] LABCLIA [id number] [place] [address] MCHC (RBC) [Mass/Vol] 33.5 g/dL Normal 30.5-36.0 [facility] Comment on above: Order Comment: Speci men Type: BLOOD SPECIMENOrdering Facility: [facility] Address: [address] [place] [address] Performed By: #### 5 7021-8 ####[facility] LABCLIA [id number] [place] [address] MCV (RBC) [Entitic vol] 90.6 fL Normal 80.0-100.0 [facility] Comment on above: Order Comment: Speci men Type: BLOOD SPECIMENOrdering Facility: [facility] Address: [address] [place] [address] Performed By: #### 5 7021-8 ####[facility] LABCLIA [id number] [place] [address] Monocytes (Bld) [#/Vol] 0.78 10*3/uL Normal <0.87 [facility] Comment on above: Order Comment: Speci men Type: BLOOD SPECIMENOrdering Facility: [facility] Address: [address] [place] [address] Performed By: #### 5 7021-8 ####[facility] LABCLIA [id number] [place] [address] Monocytes/100 WBC (Bld) 13.9 % Normal [facility] Comment on above: Order Comment: Speci men Type: BLOOD SPECIMENOrdering Facility: [facility] Address: [address] [place] [address] Performed By: #### 5 7021-8 ####[facility] LABCLIA [id number] [place] [address] Neutrophils (Bld) [#/Vol] 3.66 10*3/uL Normal 1.45-7.50 [facility] Comment on above: Order Comment: Speci men Type: BLOOD SPECIMENOrdering Facility: [facility] Address: [address] [place] [address] Performed By: #### 5 7021-8 ####[facility] LABCLIA [id number] [place] [address] Neutrophils/100 WBC (Bld) 65.3 % Normal [facility] Comment on above: Order Comment: Speci men Type: BLOOD SPECIMENOrdering Facility: [facility] Address: [address] [place] [address] Performed By: #### 5 7021-8 ####[facility] LABCLIA [id number] [place] [address] Nucleated RBC (Bld) [#/Vol] 10*3/uL Normal <0.01 [facility] Comment on above: Order Comment: Speci men Type: BLOOD SPECIMENOrdering Facility: [facility] Address: [address] [place] [address] Performed By: #### 5 7021-8 ####[facility] LABCLIA [id number] [place] [address] Nucleated RBC/100 WBC (Bld) [Ratio] 0.0 /100 WBC Normal [facility] Comment on above: Order Comment: Speci men Type: BLOOD SPECIMENOrdering Facility: [facility] Address: [address] [place] [address] Performed By: #### 5 7021-8 ####[facility] LABCLIA [id number] [place] [address] Platelet mean volume (Bld) [Entitic vol] 10.7 fL Normal 9.0-12.7 [facility] Comment on above: Order Comment: Speci men Type: BLOOD SPECIMENOrdering Facility: [facility] Address: [address] [place] [address] Performed By: #### 5 7021-8 ####[facility] LABCLIA [id number] [place] [address] Platelets (Bld) [#/Vol] 214 10*3/uL Normal 150-400 [facility] Comment on above: Order Comment: Speci men Type: BLOOD SPECIMENOrdering Facility: [facility] Address: [address] [place] [address] Performed By: #### 5 7021-8 ####[facility] LABIA [id number] [place] [address] RBC (Bld) [#/Vol] 4.48 10*6/uL Normal 4.20-6.00 [facility] Comment on above: Order Comment: Speci men Type: BLOOD SPECIMENOrdering Facility: [facility] Address: [address] [place] [address] Performed By: #### 5 7021-8 ####[facility] LABIA [id number] [place] [address] WBC (Bld) [#/Vol] 5.60 10*3/uL Normal 3.70-11.00 [facility] Comment on above: Order Comment: Speci men Type: BLOOD SPECIMENOrdering Facility: [facility] Address: [address] [place] [address] Performed By: #### 5 7021-8 ####[facility] LABIA [id number] [place] [address] CNOVSPon 10-20-2023 CNOVSP Normal [facility] Comprehensive metabolic 2000 panelon 10-20-2023 Albumin [Mass/Vol] 4.6 g/dL 3.9 - 4.9 g/dL [facility] ALP [Catalytic activity/Vol] 55 U/L 38 - 113 U/L [facility] ALT [Catalytic activity/Vol] 48 U/L 10 - 54 U/L [facility] Anion gap [Moles/Vol] 15 mmol/L 9 - 18 mmol/L [facility] AST [Catalytic activity/Vol] 30 U/L 14 - 40 U/L [facility] Bilirubin [Mass/Vol] 0.6 mg/dL 0.2 - 1.3 mg/dL [facility] Calcium [Mass/Vol] 10.9 mg/dL High 8.5 - 10.2 mg/dL [facility] Chloride [Moles/Vol] 105 mmol/L 97 - 105 mmol/L [facility] CO2 [Moles/Vol] 26 mmol/L 22 - 30 mmol/L [facility] Creatinine [Mass/Vol] 1.28 mg/dL High 0.73 - 1.22 mg/dL [facility] Estimated Glomerular Filtration Rate 62 mL/min/1.73m >=60 mL/min/1.73m [facility] Glucose [Mass/Vol] 95 mg/dL 74 - 99 mg/dL [facility] Potassium [Moles/Vol] 4.2 mmol/L 3.7 - 5.1 mmol/L [facility] Protein [Mass/Vol] 8.0 g/dL 6.3 - 8.0 g/dL [facility] Sodium [Moles/Vol] 146 mmol/L High 136 - 144 mmol/L [facility] Urea nitrogen [Mass/Vol] 25 mg/dL High 9 - 24 mg/dL [facility] Albumin [Mass/Vol] 4.6 g/dL Normal 3.9-4.9 [facility] Comment on above: Order Comment: Speci men Type: BLOOD SPECIMENOrdering Facility: [facility] Address: [address] [place] [address] Performed By: #### 2 4323-8 ####[facility] LABCLIA [id number] [place] [address] ALP [Catalytic activity/Vol] 55 U/L Normal 38-113 [facility] Comment on above: Order Comment: Speci men Type: BLOOD SPECIMENOrdering Facility: [facility] Address: [address] [place] [address] Performed By: #### 2 4323-8 ####[facility] LABCLIA [id number] [place] [address] ALT [Catalytic activity/Vol] 48 U/L Normal 10-54 [facility] Comment on above: Order Comment: Speci men Type: BLOOD SPECIMENOrdering Facility: [facility] Address: [address] [place] [address] Performed By: #### 2 4323-8 ####[facility] LABCLIA [id number] [place] [address] Anion gap [Moles/Vol] 15 mmol/L Normal 9-18 [facility] Comment on above: Order Comment: Speci men Type: BLOOD SPECIMENOrdering Facility: [facility] Address: [address] [place] [address] Performed By: #### 2 4323-8 ####[facility] LABCLIA [id number] [place] [address] AST [Catalytic activity/Vol] 30 U/L Normal 14-40 [facility] Comment on above: Order Comment: Speci men Type: BLOOD SPECIMENOrdering Facility: [facility] Address: [address] [place] [address] Performed By: #### 2 4323-8 ####[facility] LABCLIA [id number] [place] [address] Bilirubin [Mass/Vol] 0.6 mg/dL Normal 0.2-1.3 [facility] Comment on above: Order Comment: Speci men Type: BLOOD SPECIMENOrdering Facility: [facility] Address: [address] [place] [address] Performed By: #### 2 4323-8 ####[facility] LABCLIA [id number] [place] [address] Calcium [Mass/Vol] 10.9 mg/dL High 8.5-10.2 [facility] Comment on above: Order Comment: Speci men Type: BLOOD SPECIMENOrdering Facility: [facility] Address: [address] [place] [address] Result Comment: RECH ECKED JT Performed By: #### 2 4323-8 ####[facility] LABCLIA [id number] [place] [address] Chloride [Moles/Vol] 105 mmol/L Normal 97-105 [facility] Comment on above: Order Comment: Speci men Type: BLOOD SPECIMENOrdering Facility: [facility] Address: [address] [place] [address] Performed By: #### 2 4323-8 ####[facility] LABCLIA [id number] [place] [address] CO2 [Moles/Vol] 26 mmol/L Normal 22-30 [facility] Comment on above: Order Comment: Speci men Type: BLOOD SPECIMENOrdering Facility: [facility] Address: [address] [place] [address] Performed By: #### 2 4323-8 ####[facility] LABCLIA [id number] [place] [address] Creatinine [Mass/Vol] 1.28 mg/dL High 0.73-1.22 [facility] Comment on above: Order Comment: Speci men Type: BLOOD SPECIMENOrdering Facility: [facility] Address: [address] [place] [address] Performed By: #### 2 4323-8 ####[facility] LABCLIA [id number] [place] [address] Creatinine and Glomerular filtration rate.predicted panel (S/P/Bld) 62 mL/min/1.73m??? Normal >=60 [facility] Comment on above: Order Comment: Speci men Type: BLOOD SPECIMENOrdering Facility: [facility] Address: [address] [place] [address] Result Comment: Landy mated Glomerular Filtration Rate [...] actual GFR. Performed By: #### 2 4323-8 ####[facility] LABCLIA [id number] [place] [address] Glucose [Mass/Vol] 95 mg/dL Normal 74-99 [facility] Comment on above: Order Comment: Speci men Type: BLOOD SPECIMENOrdering Facility: [facility] Address: [address] [place], [place] [address] Result Comment: The [place] [employer] (ADA) provides guidance for cutoff [...] Standards of Medical Care in Diabetes 2016, [place] [employer]. Diabetes Care. 2016.39(Suppl 1). Performed By: #### 2 4323-8 ####[facility] LABCLIA [id number] [place] [address] Potassium [Moles/Vol] 4.2 mmol/L Normal 3.7-5.1 [facility] Comment on above: Order Comment: Speci men Type: BLOOD SPECIMENOrdering Facility: [facility] Address: [address] [place], [place] [address] Performed By: #### 2 4323-8 ####[facility] LABCLIA [id number] [place] [address] Protein [Mass/Vol] 8.0 g/dL Normal 6.3-8.0 [facility] Comment on above: Order Comment: Speci men Type: BLOOD SPECIMENOrdering Facility: [facility] Address: [address] [place], [place] [address] Performed By: #### 2 4323-8 ####[facility] LABCLIA [id number] [place] [address] Sodium [Moles/Vol] 146 mmol/L High 136-144 [facility] Comment on above: Order Comment: Speci men Type: BLOOD SPECIMENOrdering Facility: [facility] Address: [address] [place] [address] Performed By: #### 2 4323-8 ####[facility] LABCLIA [id number] [place] [id number] Urea nitrogen [Mass/Vol] 25 mg/dL High 9-24 [facility] Comment on above: Order Comment: Speci men Type: BLOOD SPECIMENOrdering Facility: [facility] Address: [address] [place] [address] Performed By: #### 2 4323-8 ####[facility] LABCLIA [id number] [place] [id number] TSH BLDon 10-20-2023 TSH Qn 4.200 m[IU]/L 0.270 - 4.200 mIU/L [facility] TSH SerPl-aCncon 10-20-2023 TSH Qn 4.200 m[IU]/L Normal 0.270-4.200 [facility] Comment on above: Order Comment: Speci men Type: BLOOD SPECIMENOrdering Facility: [facility] Address: [address] [place] [address] Performed By: #### 3 016-3 ####[facility] LABCLIA [id number] [place] [address] [place] Ambulatory Visit Summaryon [...] 11:20 AM EDT With: Enrique Austin Where: [place] [phone] \.br\ Medications\.br\ What How Much When Instructions\.br\ Unchanged alprazolam (alprazolam 0.25 mg Tab) 1 Tablets By Mouth 3 times a day as needed for for anxiety\.br\ Unchanged amoxicillin (amoxicillin 875 mg Tab) 1 Tablets By Mouth 2 times a day Duration: 10 Days Pickup at [facility]\.br\ Unchanged atorvastatin (atorvastatin 40 mg Tab) [...] 90 tab(s), 0 Refill(s) \.br\ Pharmacy Information\.br\ [facility]: [address] [place] [id number] [phone]\.br\ Medications and Immunizations Administered\.br\ Given\.br\ triamcinolone acetonide [...] for choosing us for your care.\.br\ \.br\ [facility] 10-15-2023 Consent [id number] #1.00TIFF Normal [facility] Office/Clini c Noteon 10-15-2023 [...] anxiety, # 30 tab(s), Refills(s) 0, Pharmacy: [facility], 169.6, cm, 03/17/23 10:54:00 EDT, Height/Length Dosing, 62, kg, 03/17/23 10:54:00 EDT, Weight Dosing amoxicillin, 875 mg = 1 tab(s), Oral, BID, X 10 day(s), # 20 tab(s), Refills(s) 0, Pharmacy: [facility], 169.5, cm, 10/15/23 11:53:00 EDT, [...] (COVID-19) mRNA-1273 vaccine 11/15/2020 Recorded Normal [facility] Comment on above: Result Comment: Elec [...] Appointments 2023 11:20 AM EDT With: Enrique Autsin Where: [place] [phone]- \.br\ Medications\.br\ What How Much When Instructions\.br\ Unchanged alprazolam (alprazolam 0.25 mg Tab) 1 Tablets By Mouth 3 times a day as needed for for anxiety Pickup at [facility]\.br\ Unchanged alprazolam (alprazolam 0.25 mg Tab) [...] 90 tab(s), 0 Refill(s) \.br\ Pharmacy Information\.br\ [facility]: [address] [place], [place] [phone]\.br\ Allergies\.br\ No Known Allergies\.br\ Problems\.br\ Ongoing - [...] choosing us for your care.\.br\ \.br\ [facility] Office/Clini c Noteon 10-08-2023 [...] days., # 45 tab(s), Refills(s) 0, Pharmacy: [facility], 169.5, cm, 09/02/23 11:42:00 EST, Height/Anuj... Orders: alprazolam, 0.25 mg = 1 tab(s), Oral, TID, PRN for anxiety, # 90 tab(s), Refills(s) 0, Pharmacy: [facility], 169.5, cm, 10/08/23 9:02:00 EDT, Height/Length [...] SARS-CoV-2 (COVID-19) mRNA-1273 vaccine 11/15/2020 Recorded Normal [facility] Comment on above: Result Comment: Elec tronically Signed By: Enrique Austin\.miladys\Date and Time Signed: 10/08/23 09:14 EDT Medication Consenton 024 Medication Consent [id number] #1.00TIFF Normal [facility] CBC W Auto Differential pane l (Bld)on 09-22-2023 Basophils (Bld) [#/Vol] 0.03 10*3/uL <0.11 k/uL [facility] Basophils/100 WBC (Bld) 0.7 % [facility] Differential cell count method Nom (Bld) Auto [facility] Eosinophils (Bld) [#/Vol] 0.05 10*3/uL <0.46 k/uL [facility] Eosinophils/100 WBC (Bld) 1.2 % [facility] Erythrocyte distribution width (RBC) [Ratio] 17.0 % High 11.5 - 15.0 % [facility] Hematocrit (Bld) [Volume fraction] 40.7 % 39.0 - 51.0 % [facility] Hemoglobin (Bld) [Mass/Vol] 13.5 g/dL 13.0 - 17.0 g/dL [facility] Immature granulocytes (Bld) [#/Vol] 0.03 10*3/uL <0.10 k/uL [facility] Immature granulocytes/100 WBC (Bld) 0.7 % [facility] Lymphocytes (Bld) [#/Vol] 0.87 10*3/uL Low 1.00 - 4.00 k/uL [facility] Lymphocytes/100 WBC (Bld) 21.6 % [facility] MCH (RBC) [Entitic mass] 30.2 pg 26.0 - 34.0 pg [facility] MCHC (RBC) [Mass/Vol] 33.2 g/dL 30.5 - 36.0 g/dL [facility] MCV (RBC) [Entitic vol] 91.1 fL 80.0 - 100.0 fL [facility] Monocytes (Bld) [#/Vol] 0.73 10*3/uL <0.87 k/uL [facility] Monocytes/100 WBC (Bld) 18.1 % [facility] Neutrophils (Bld) [#/Vol] 2.32 10*3/uL 1.45 - 7.50 k/uL [facility] Neutrophils/100 WBC (Bld) 57.7 % [facility] Nucleated RBC (Bld) [#/Vol] <0.01 k/uL [facility] Nucleated RBC/100 WBC (Bld) [Ratio] 0.0 /100 WBC [facility] Platelet mean volume (Bld) [Entitic vol] 11.0 fL 9.0 - 12.7 fL [facility] Platelets (Bld) [#/Vol] 180 10*3/uL 150 - 400 k/uL [facility] RBC (Bld) [#/Vol] 4.47 10*6/uL 4.20 - 6.00 m/uL [facility] WBC (Bld) [#/Vol] 4.03 10*3/uL 3.70 - 11.00 k/u L [facility] Basophils (Bld) [#/Vol] 0.03 10*3/uL Normal <0.11 [facility] Comment on above: Order Comment: Speci men Type: BLOOD SPECIMENOrdering Facility: [facility] Address: [address] [place] [address] Performed By: #### 5 7021-8 ####[facility] LABCLIA [id number] [place] [address] Basophils/100 WBC (Bld) 0.7 % Normal [facility] Comment on above: Order Comment: Speci men Type: BLOOD SPECIMENOrdering Facility: [facility] Address: [address] [place] [address] Performed By: #### 5 7021-8 ####[facility] LABCLIA [id number] [place] [address] Differential cell count method Nom (Bld) Auto Normal [facility] Comment on above: Order Comment: Speci men Type: BLOOD SPECIMENOrdering Facility: [facility] Address: [address] [place] [address] Performed By: #### 5 7021-8 ####[facility] LABCLIA [id number] [place] [address] Eosinophils (Bld) [#/Vol] 0.05 10*3/uL Normal <0.46 [facility] Comment on above: Order Comment: Speci men Type: BLOOD SPECIMENOrdering Facility: [facility] Address: [address] [place] [address] Performed By: #### 5 7021-8 ####[facility] LABCLIA [id number] [place] [address] Eosinophils/100 WBC (Bld) 1.2 % Normal [facility] Comment on above: Order Comment: Speci men Type: BLOOD SPECIMENOrdering Facility: [facility] Address: [address] [place] [address] Performed By: #### 5 7021-8 ####[facility] LABCLIA [id number] [place] [address] Erythrocyte distribution width (RBC) [Ratio] 17.0 % High 11.5-15.0 [facility] Comment on above: Order Comment: Speci men Type: BLOOD SPECIMENOrdering Facility: [facility] Address: [address] [place] [address] Performed By: #### 5 7021-8 ####[facility] LABCLIA [id number] [place] [address] Hematocrit (Bld) [Volume fraction] 40.7 % Normal 39.0-51.0 [facility] Comment on above: Order Comment: Speci men Type: BLOOD SPECIMENOrdering Facility: [facility] Address: [address] [place] [address] Performed By: #### 5 7021-8 ####[facility] LABIA [id number] [place] [address] Hemoglobin (Bld) [Mass/Vol] 13.5 g/dL Normal 13.0-17.0 [facility] Comment on above: Order Comment: Speci men Type: BLOOD SPECIMENOrdering Facility: [facility] Address: [address] [place] [address] Performed By: #### 5 7021-8 ####[facility] LABCLIA [id number] [place] [address] Immature granulocytes (Bld) [#/Vol] 0.03 10*3/uL Normal <0.10 [facility] Comment on above: Order Comment: Speci men Type: BLOOD SPECIMENOrdering Facility: [facility] Address: [address] [place] [address] Performed By: #### 5 7021-8 ####[facility] LABCLIA [id number] [place] [address] Immature granulocytes/100 WBC (Bld) 0.7 % Normal [facility] Comment on above: Order Comment: Speci men Type: BLOOD SPECIMENOrdering Facility: [facility] Address: [address] [place] [address] Performed By: #### 5 7021-8 ####[facility] LABCLIA [id number] [place] [address] Lymphocytes (Bld) [#/Vol] 0.87 10*3/uL Low 1.00-4.00 [facility] Comment on above: Order Comment: Speci men Type: BLOOD SPECIMENOrdering Facility: [facility] Address: [address] [place] [address] Performed By: #### 5 7021-8 ####[facility] LABCLIA [id number] [place] [address] Lymphocytes/100 WBC (Bld) 21.6 % Normal [facility] Comment on above: Order Comment: Speci men Type: BLOOD SPECIMENOrdering Facility: [facility] Address: [address] [place] [address] Performed By: #### 5 7021-8 ####[facility] LABCLIA [id number] [place] [address] MCH (RBC) [Entitic mass] 30.2 pg Normal 26.0-34.0 [facility] Comment on above: Order Comment: Speci men Type: BLOOD SPECIMENOrdering Facility: [facility] Address: [address] [place] [address] Performed By: #### 5 7021-8 ####[facility] LABIA [id number] [place] [address] MCHC (RBC) [Mass/Vol] 33.2 g/dL Normal 30.5-36.0 [facility] Comment on above: Order Comment: Speci men Type: BLOOD SPECIMENOrdering Facility: [facility] Address: [address] [place] [address] Performed By: #### 5 7021-8 ####[facility] LABCLIA [id number] [place] [address] MCV (RBC) [Entitic vol] 91.1 fL Normal 80.0-100.0 [facility] Comment on above: Order Comment: Speci men Type: BLOOD SPECIMENOrdering Facility: [facility] Address: [address] [place] [address] Performed By: #### 5 7021-8 ####[facility] LABCLIA [id number] [place] [address] Monocytes (Bld) [#/Vol] 0.73 10*3/uL Normal <0.87 [facility] Comment on above: Order Comment: Speci men Type: BLOOD SPECIMENOrdering Facility: [facility] Address: [address] [place] [address] Performed By: #### 5 7021-8 ####[facility] LABCLIA [id number] [place] [address] Monocytes/100 WBC (Bld) 18.1 % Normal [facility] Comment on above: Order Comment: Speci men Type: BLOOD SPECIMENOrdering Facility: [facility] Address: [address] [place] [address] Performed By: #### 5 7021-8 ####[facility] LABCLIA [id number] [place] [address] Neutrophils (Bld) [#/Vol] 2.32 10*3/uL Normal 1.45-7.50 [facility] Comment on above: Order Comment: Speci men Type: BLOOD SPECIMENOrdering Facility: [facility] Address: [address] [place] [address] Performed By: #### 5 7021-8 ####[facility] LABCLIA [id number] [place] [address] Neutrophils/100 WBC (Bld) 57.7 % Normal [facility] Comment on above: Order Comment: Speci men Type: BLOOD SPECIMENOrdering Facility: [facility] Address: [address] [place] [address] Performed By: #### 5 7021-8 ####[facility] LABCLIA [id number] [place] [address] Nucleated RBC (Bld) [#/Vol] 10*3/uL Normal <0.01 [facility] Comment on above: Order Comment: Speci men Type: BLOOD SPECIMENOrdering Facility: [facility] Address: [address] [place] [address] Performed By: #### 5 7021-8 ####[facility] LABCLIA [id number] [place] [address] Nucleated RBC/100 WBC (Bld) [Ratio] 0.0 /100 WBC Normal [facility] Comment on above: Order Comment: Speci men Type: BLOOD SPECIMENOrdering Facility: [facility] Address: [address] [place] [address] Performed By: #### 5 7021-8 ####[facility] LABCLIA [id number] [place] [address] Platelet mean volume (Bld) [Entitic vol] 11.0 fL Normal 9.0-12.7 [facility] Comment on above: Order Comment: Speci men Type: BLOOD SPECIMENOrdering Facility: [facility] Address: [address] [place] [address] Performed By: #### 5 7021-8 ####[facility] LABCLIA [id number] [place] [address] Platelets (Bld) [#/Vol] 180 10*3/uL Normal 150-400 [facility] Comment on above: Order Comment: Speci men Type: BLOOD SPECIMENOrdering Facility: [facility] Address: [address] [place], [place] [address] Performed By: #### 5 7021-8 ####[facility] LABCLIA [id number] [place] [address] RBC (Bld) [#/Vol] 4.47 10*6/uL Normal 4.20-6.00 [facility] Comment on above: Order Comment: Speci men Type: BLOOD SPECIMENOrdering Facility: [facility] Address: [address] [place] [address] Performed By: #### 5 7021-8 ####[facility] LABCLIA [id number] [place] [address] WBC (Bld) [#/Vol] 4.03 10*3/uL Normal 3.70-11.00 [facility] Comment on above: Order Comment: Speci men Type: BLOOD SPECIMENOrdering Facility: [facility] Address: [address] [place] [address] Performed By: #### 5 7021-8 ####[facility] LABCLIA [id number] [place] [address] CNCNPATEDon 09-22-2023 CNCNPATED Normal [facility] CNOVSPon 09-22-2023 CNOVSP Normal [facility] Comprehensive metabolic 2000 panelon 09-22-2023 Albumin [Mass/Vol] 4.4 g/dL 3.9 - 4.9 g/dL [facility] ALP [Catalytic activity/Vol] 47 U/L 38 - 113 U/L [facility] ALT [Catalytic activity/Vol] 19 U/L 10 - 54 U/L [facility] Anion gap [Moles/Vol] 15 mmol/L 9 - 18 mmol/L [facility] AST [Catalytic activity/Vol] 24 U/L 14 - 40 U/L [facility] Bilirubin [Mass/Vol] 0.4 mg/dL 0.2 - 1.3 mg/dL [facility] Calcium [Mass/Vol] 10.1 mg/dL 8.5 - 10.2 mg/dL [facility] Chloride [Moles/Vol] 100 mmol/L 97 - 105 mmol/L [facility] CO2 [Moles/Vol] 25 mmol/L 22 - 30 mmol/L [facility] Creatinine [Mass/Vol] 1.38 mg/dL High 0.73 - 1.22 mg/dL [facility] Estimated Glomerular Filtration Rate 56 mL/min/1.73m Low >=60 mL/min/1.73m [facility] Glucose [Mass/Vol] 107 mg/dL High 74 - 99 mg/dL [facility] Potassium [Moles/Vol] 4.3 mmol/L 3.7 - 5.1 mmol/L [facility] Protein [Mass/Vol] 7.6 g/dL 6.3 - 8.0 g/dL [facility] Sodium [Moles/Vol] 140 mmol/L 136 - 144 mmol/L [facility] Urea nitrogen [Mass/Vol] 30 mg/dL High 9 - 24 mg/dL [facility] Albumin [Mass/Vol] 4.4 g/dL Normal 3.9-4.9 [facility] Comment on above: Order Comment: Speci men Type: BLOOD SPECIMENOrdering Facility: [facility] Address: [address] [place] [address] Performed By: #### 2 4323-8 ####[facility] LABIA [id number] [place] [address] ALP [Catalytic activity/Vol] 47 U/L Normal 38-113 [facility] Comment on above: Order Comment: Speci men Type: BLOOD SPECIMENOrdering Facility: [facility] Address: [address] [place] [address] Performed By: #### 2 4323-8 ####[facility] LABCLIA [id number] [place] [address] ALT [Catalytic activity/Vol] 19 U/L Normal 10-54 [facility] Comment on above: Order Comment: Speci men Type: BLOOD SPECIMENOrdering Facility: [facility] Address: [address] [place] [address] Performed By: #### 2 4323-8 ####[facility] LABCLIA [id number] [place] [address] Anion gap [Moles/Vol] 15 mmol/L Normal 9-18 [facility] Comment on above: Order Comment: Speci men Type: BLOOD SPECIMENOrdering Facility: [facility] Address: [address] [place] [address] Performed By: #### 2 4323-8 ####[facility] LABCLIA [id number] [place] [address] AST [Catalytic activity/Vol] 24 U/L Normal 14-40 [facility] Comment on above: Order Comment: Speci men Type: BLOOD SPECIMENOrdering Facility: [facility] Address: [address] [place] [address] Performed By: #### 2 4323-8 ####[facility] LABCLIA [id number] [place] [address] Bilirubin [Mass/Vol] 0.4 mg/dL Normal 0.2-1.3 [facility] Comment on above: Order Comment: Speci men Type: BLOOD SPECIMENOrdering Facility: [facility] Address: [address] [place] [address] Performed By: #### 2 4323-8 ####[facility] LABCLIA [id number] [place] [address] Calcium [Mass/Vol] 10.1 mg/dL Normal 8.5-10.2 [facility] Comment on above: Order Comment: Speci men Type: BLOOD SPECIMENOrdering Facility: [facility] Address: [address] [place] [address] Performed By: #### 2 4323-8 ####[facility] LABCLIA [id number] [place] [address] Chloride [Moles/Vol] 100 mmol/L Normal 97-105 [facility] Comment on above: Order Comment: Speci men Type: BLOOD SPECIMENOrdering Facility: [facility] Address: [address] [place] [address] Performed By: #### 2 4323-8 ####[facility] LABCLIA [id number] [place] [address] CO2 [Moles/Vol] 25 mmol/L Normal 22-30 [facility] Comment on above: Order Comment: Speci men Type: BLOOD SPECIMENOrdering Facility: [facility] Address: [address] [place] [address] Performed By: #### 2 4323-8 ####[facility] LABCLIA [id number] [place] [address] Creatinine [Mass/Vol] 1.38 mg/dL High 0.73-1.22 [facility] Comment on above: Order Comment: Speci men Type: BLOOD SPECIMENOrdering Facility: [facility] Address: [address] [place] [address] Performed By: #### 2 4323-8 ####[facility] LABIA [id number] [place] [address] Creatinine and Glomerular filtration rate.predicted panel (S/P/Bld) 56 mL/min/1.73m??? Low >=60 [facility] Comment on above: Order Comment: Speci men Type: BLOOD SPECIMENOrdering Facility: [facility] Address: [address] [place] [address] Result Comment: Landy mated Glomerular Filtration Rate [...] actual GFR. Performed By: #### 2 4323-8 ####[facility] LABCLIA [id number] [place] [address] Glucose [Mass/Vol] 107 mg/dL High 74-99 [facility] Comment on above: Order Comment: Speci men Type: BLOOD SPECIMENOrdering Facility: [facility] Address: [address] [place] [address] Result Comment: The [place] [employer] (ADA) provides guidance for cutoff [...] Standards of Medical Care in Diabetes 2016, [place] [employer]. Diabetes Care. 2016.39(Suppl 1). Performed By: #### 2 4323-8 ####[facility] LABCLIA [id number] [place] [address] Potassium [Moles/Vol] 4.3 mmol/L Normal 3.7-5.1 [facility] Comment on above: Order Comment: Speci men Type: BLOOD SPECIMENOrdering Facility: [facility] Address: [address] [place] [place] [id number] Performed By: #### 2 4323-8 ####[facility] LABCLIA [id number] [place] [address] Protein [Mass/Vol] 7.6 g/dL Normal 6.3-8.0 [facility] Comment on above: Order Comment: Speci men Type: BLOOD SPECIMENOrdering Facility: [facility] Address: [address] [place] [address] Performed By: #### 2 4323-8 ####[facility] LABCLIA [id number] [place] [address] Sodium [Moles/Vol] 140 mmol/L Normal 136-144 [facility] Comment on above: Order Comment: Speci men Type: BLOOD SPECIMENOrdering Facility: [facility] Address: [address] [place] [address] Performed By: #### 2 4323-8 ####[facility] LABCLIA [id number] [place] [address] Urea nitrogen [Mass/Vol] 30 mg/dL High 9-24 [facility] Comment on above: Order Comment: Speci men Type: BLOOD SPECIMENOrdering Facility: [facility] Address: [address] [place] [address] Performed By: #### 2 4323-8 ####[facility] LABCLIA [id number] [place] [address] T4/FTI/T4Uon 09-22-2023 FTI 7.1 ug/dL 5.3 - 10.8 ug/dL [facility] T4 [Mass/Vol] 6.1 ug/dL 5.5 - 10.2 ug/dL [facility] T4 uptake [Mass/Vol] 0.86 Low 0.91 - 1.19 [facility] FTI 7.1 ug/dL Normal 5.3-10.8 [facility] Comment on above: Order Comment: Speci men Type: BLOOD SPECIMENOrdering Facility: [facility] Address: [address] [place] [address] Performed By: #### Lexi CHAN, 6-3 ####[facility] LABCLIA [id number] [place] [address] [place] T4 [Mass/Vol] 6.1 ug/dL Normal 5.5-10.2 [facility] Comment on above: Order Comment: Speci men Type: BLOOD SPECIMENOrdering Facility: [facility] Address: [address] [place], [place] [address] Performed By: #### T 4FALEJANDRO, 6-3 ####[facility] LABCLIA [id number] [place] [id number] [place] T4 uptake [Mass/Vol] 0.86 Low 0.91-1.19 [facility] Comment on above: Order Comment: Speci men Type: BLOOD SPECIMENOrdering Facility: [facility] Address: [address] [place], [place] [address] [id number] Performed By: #### T 4FTI, 3016-3 ####[facility] LABCLIA [id number] [place] [id number] [place] TSH BLDon 09-22-2023 TSH Qn 14.500 m[IU]/L High 0.270 - 4.200 mIU/L C [facility] TSH SerPl-aCncon 09-22-2023 TSH Qn 14.500 m[IU]/L High 0.270-4.200 [facility] Comment on above: Order Comment: Speci men Type: BLOOD SPECIMENOrdering Facility: [facility] Address: [facility] [place] [place] [address] Performed By: #### T 4FTI, 3016-3 ####[facility] LABCLIA [id number] [place] [address] [place] PET+CT Guidance for [...] any questions regarding this interpretation, please call [phone]. If you are unable to reach us at the number above, please feel free to contact [facility] eRadiology at [phone]. DIVISION OF RADIOLOGY * * *Final Report* [...] Background liver activity: SUVmax 3.2; SUVmean 2.5 Candy Attendant (topogram) images: No additional findings. Notes and [...] No abnormal uptake. DIVISION OF RADIOLOGY Provider, [facility] - 09/16/2023 * * *Final Report* * [...] Background liver activity: SUVmax 3.2; SUVmean 2.5 Candy Attendant (topogram) images: No additional findings. Notes and [...] any questions regarding this interpretation, please call [phone]. If you are unable to reach us at the number above, please feel free to contact [facility] (more content not included)... [facility] PET+CT Guidance for localiza tion of tumor of Skull base to mid-thigh-- W 18F-FDG IVOrdered By: Ccf Provider on 09-16-2023 [facility] GLUCOSE, BLOOD (POC)on 09-15 Glucose [Mass/Vol] 107 mg/dL Abnormal 74 - 99 mg/dL [facility] Comment on above: Location:[facility], [address] [place] [address] , [place], [place], [address] The Accu-Chek Inform II glucose meter has [...] Interpretation and review of laboratory results Abnormal [facility] NM PET/CT SKULL-THIGH SUBQon 09-15-2023 NM PET/CT SKULL-THIGH SUBQ Normal [facility] PET+CT Guidance for localiza tion of tumor of Skull base to mid-thigh-- W 18F-FDG Anoop 09-15-2023 Radiology Study observation (narrative) [facility] Physician Referralon 024 Physician Referral [id number] #[id number] Normal [facility] Ambulatory Visit Summaryon 0 09-02-2023 Ambulatory [...] 8:40 AM EDT With: Enrique Austin Where: [address] [place] [address]- \.br\ Medications\.br\ What How Much When Why Instructions\.br\ New predniSONE (predniSONE 10 mg Tab) 1 Dose Separtor By Mouth As Directed Rash BMI 21.0-21.9, adult Former smoker Take 5 tabs by mouth daily x3 days, 4 daily x3 days, 3 daily x3 days, 2 daily x3 days, then 1 tab daily x3 days. Pickup at [facility]\.br\ Unchanged alprazolam (alprazolam 0.25 mg Tab) [...] 90 tab(s), 0 Refill(s) \.br\ Pharmacy Information\.br\ [facility]: [address] [place] [id number] [phone]\.br\ Allergies\.br\ No Known Allergies\.br\ Problems\.br\ Ongoing - [...] choosing us for your care.\.br\ \.br\ [facility] Office/Clini c Noteon 09-02-2023 [...] spread this week. pt found creams that pillow filler ordered for him and applied it last [...] q12hr, # 20 cap(s), Refills(s) 0, Pharmacy: [facility], 169.5, cm, 08/20/23 11:52:00 EST, Height/Length Dosing, 63.1, kg, 08/20/23 11:52:00 EST, Weight Dosing predniSONE, 0 = 1 -, Oral, As Directed, Take 5 tabs by mouth daily x3 days, 4 daily x3 days, 3 daily x3 days, 2 daily x3 days, then 1 tab daily x3 days., # 45 tab(s), Refills(s) 0, Pharmacy: [facility], 169.5, cm, 09/02/23 11:42:00 EST, Height/Anuj... triamcinolone topical, 1 duong, Topical, BID, 20 gram, Refill(s) 0, [facility], 169.5, cm, 08/20/23 11:52:00 EST, Height/Length Dosing, 63.1, kg, 08/20/23 11:52:00 EST, Weight Dosing [facility] External Ambulatory Referral 2. BMI 21.0-21.9, adult (Z68.21: Body mass index [BMI] 21.0-21.9, adult) BMI education complete Ordered: cephalexin, 500 mg = 1 cap(s), Oral, q12hr, # 20 cap(s), Refills(s) 0, Pharmacy: [facility], 169.5, cm, 08/20/23 11:52:00 EST, Height/Length Dosing, 63.1, kg, 08/20/23 11:52:00 EST, Weight Dosing predniSONE, 0 = 1 -, Oral, As Directed, Take 5 tabs by mouth daily x3 days, 4 daily x3 days, 3 daily x3 days, 2 daily x3 days, then 1 tab daily x3 days., # 45 tab(s), Refills(s) 0, Pharmacy: [facility], 169.5, cm, 09/02/23 11:42:00 EST, Height/Anuj... triamcinolone topical, 1 duong, Topical, BID, 20 gram, Refill(s) 0, [facility], 169.5, cm, 08/20/23 11:52:00 EST, Height/Length Dosing, 63.1, kg, 08/20/23 11:52:00 EST, Weight Dosing [facility] External Ambulatory Referral 3. Former smoker (Z87.891: Personal history of nicotine dependence) continue not smoking Ordered: predniSONE, 0 = 1 -, Oral, As Directed, Take 5 tabs by mouth daily x3 days, 4 daily x3 days, 3 daily x3 days, 2 daily x3 days, then 1 tab daily x3 days., # 45 tab(s), Refills(s) 0, Pharmacy: [facility], 169.5, cm, 09/02/23 11:42:00 EST, Height/Anuj... [facility] External Ambulatory Referral Orders: alprazolam, 0.25 mg = 1 tab(s), Oral, TID, PRN for anxiety, # 60 tab(s), Refills(s) 0, Pharmacy: [facility], 169.6, cm, 07/23/23 10:23:00 EST, Height/Length Dosing, 63, kg, 07/23/23 10:23:00 EST, Weight Dosing methylPREDNISolone, = 1 packet(s), Oral, Once, as directed on package labeling, # 21 tab(s), Refills(s) 0, Pharmacy: [facility], 169.6, cm, 07/23/23 10:23:00 EST, Height/Length Dosing, 63, kg, 07/23/23 10:23:00 EST, Weight Dosing Follow-up No qualifying data available Problem List/Past Medical History Ongoing Anxiety CAD (coronary artery disease) Chest congestion Emphysema lung Fluid level behind tympanic membrane of both ears Insomnia Lung cancer Rash Historical No qualifying data Procedure/Surgical History CABG (Coronary artery bypass grafting) planned (more content not included)... Normal [facility] Comment on above: Result Comment: Elec tronically Signed By: Cate MENARD, Enrique Beatty\.br\Date and Time Signed: 09/02/23 13:02 EST CNPNon 08-26-2023 CNPN Normal [facility] CBC W Auto Differential pane l (Bld)on 08-25-2023 Basophils (Bld) [#/Vol] 0.03 10*3/uL Normal <0.11 [facility] Comment on above: Order Comment: Speci men Type: BLOOD SPECIMENOrdering Facility: [facility] Address: [address] [place] [address] Performed By: #### 5 7021-8 ####[facility] LABCLIA [id number] [place] [address] Basophils/100 WBC (Bld) 0.6 % Normal [facility] Comment on above: Order Comment: Speci men Type: BLOOD SPECIMENOrdering Facility: [facility] Address: [address] [place] [address] Performed By: #### 5 7021-8 ####[facility] LABCLIA [id number] [place] [address] Differential cell count method Nom (Bld) Auto Normal [facility] Comment on above: Order Comment: Speci men Type: BLOOD SPECIMENOrdering Facility: [facility] Address: [address] [place] [address] Performed By: #### 5 7021-8 ####[facility] LABCLIA [id number] [place] [address] Eosinophils (Bld) [#/Vol] 0.16 10*3/uL Normal <0.46 [facility] Comment on above: Order Comment: Speci men Type: BLOOD SPECIMENOrdering Facility: [facility] Address: [address] [place] [address] Performed By: #### 5 7021-8 ####[facility] LABCLIA [id number] [place] [address] Eosinophils/100 WBC (Bld) 3.1 % Normal [facility] Comment on above: Order Comment: Speci men Type: BLOOD SPECIMENOrdering Facility: [facility] Address: [address] [place] [address] Performed By: #### 5 7021-8 ####[facility] LABCLIA [id number] [place] [address] Erythrocyte distribution width (RBC) [Ratio] 14.5 % Normal 11.5-15.0 [facility] Comment on above: Order Comment: Speci men Type: BLOOD SPECIMENOrdering Facility: [facility] Address: [address] [place] [address] Performed By: #### 5 7021-8 ####[facility] LABCLIA [id number] [place] [address] Hematocrit (Bld) [Volume fraction] 39.4 % Normal 39.0-51.0 [facility] Comment on above: Order Comment: Speci men Type: BLOOD SPECIMENOrdering Facility: [facility] Address: [address] [place] [address] Performed By: #### 5 7021-8 ####[facility] LABCLIA [id number] [place] [address] Hemoglobin (Bld) [Mass/Vol] 13.2 g/dL Normal 13.0-17.0 [facility] Comment on above: Order Comment: Speci men Type: BLOOD SPECIMENOrdering Facility: [facility] Address: [address] [place] [address] Performed By: #### 5 7021-8 ####[facility] LABCLIA [id number] [place] [address] Immature granulocytes (Bld) [#/Vol] 0.03 10*3/uL Normal <0.10 [facility] Comment on above: Order Comment: Speci men Type: BLOOD SPECIMENOrdering Facility: [facility] Address: [address] [place] [address] Performed By: #### 5 7021-8 ####[facility] LABCLIA [id number] [place] [address] Immature granulocytes/100 WBC (Bld) 0.6 % Normal [facility] Comment on above: Order Comment: Speci men Type: BLOOD SPECIMENOrdering Facility: [facility] Address: [address] [place] [address] Performed By: #### 5 7021-8 ####[facility] LABCLIA [id number] [place] [address] Lymphocytes (Bld) [#/Vol] 1.08 10*3/uL Normal 1.00-4.00 [facility] Comment on above: Order Comment: Speci men Type: BLOOD SPECIMENOrdering Facility: [facility] Address: [address] [place] [address] Performed By: #### 5 7021-8 ####[facility] LABCLIA [id number] [place] [address] Lymphocytes/100 WBC (Bld) 20.8 % Normal [facility] Comment on above: Order Comment: Speci men Type: BLOOD SPECIMENOrdering Facility: [facility] Address: [address] [place] [address] Performed By: #### 5 7021-8 ####[facility] LABCLIA [id number] [place] [address] MCH (RBC) [Entitic mass] 30.1 pg Normal 26.0-34.0 [facility] Comment on above: Order Comment: Speci men Type: BLOOD SPECIMENOrdering Facility: [facility] Address: [address] [place] [address] Performed By: #### 5 7021-8 ####[facility] LABCLIA [id number] [place] [address] MCHC (RBC) [Mass/Vol] 33.5 g/dL Normal 30.5-36.0 [facility] Comment on above: Order Comment: Speci men Type: BLOOD SPECIMENOrdering Facility: [facility] Address: [address] [place] [address] Performed By: #### 5 7021-8 ####[facility] LABCLIA [id number] [place] [address] MCV (RBC) [Entitic vol] 90.0 fL Normal 80.0-100.0 [facility] Comment on above: Order Comment: Speci men Type: BLOOD SPECIMENOrdering Facility: [facility] Address: [address] [place] [address] Performed By: #### 5 7021-8 ####[facility] LABCLIA [id number] [place] [address] Monocytes (Bld) [#/Vol] 0.58 10*3/uL Normal <0.87 [facility] Comment on above: Order Comment: Speci men Type: BLOOD SPECIMENOrdering Facility: [facility] Address: [address] [place] [address] Performed By: #### 5 7021-8 ####[facility] LABCLIA [id number] [place] [address] Monocytes/100 WBC (Bld) 11.2 % Normal [facility] Comment on above: Order Comment: Speci men Type: BLOOD SPECIMENOrdering Facility: [facility] Address: [address] [place] [address] Performed By: #### 5 7021-8 ####[facility] LABCLIA [id number] [place] [address] Neutrophils (Bld) [#/Vol] 3.31 10*3/uL Normal 1.45-7.50 [facility] Comment on above: Order Comment: Speci men Type: BLOOD SPECIMENOrdering Facility: [facility] Address: [address] [place] [address] Performed By: #### 5 7021-8 ####[facility] LABCLIA [id number] [place] [address] Neutrophils/100 WBC (Bld) 63.7 % Normal [facility] Comment on above: Order Comment: Speci men Type: BLOOD SPECIMENOrdering Facility: [facility] Address: [address] [place] [address] Performed By: #### 5 7021-8 ####[facility] LABCLIA [id number] [place] [address] Nucleated RBC (Bld) [#/Vol] 10*3/uL Normal <0.01 [facility] Comment on above: Order Comment: Speci men Type: BLOOD SPECIMENOrdering Facility: [facility] Address: [address] [place] [address] Performed By: #### 5 7021-8 ####[facility] LABCLIA [id number] [place] [address] Nucleated RBC/100 WBC (Bld) [Ratio] 0.0 /100 WBC Normal [facility] Comment on above: Order Comment: Speci men Type: BLOOD SPECIMENOrdering Facility: [facility] Address: [address] [place] [address] Performed By: #### 5 7021-8 ####[facility] LABCLIA [id number] [place] [address] Platelet mean volume (Bld) [Entitic vol] 11.2 fL Normal 9.0-12.7 [facility] Comment on above: Order Comment: Speci men Type: BLOOD SPECIMENOrdering Facility: [facility] Address: [address] [place] [address] Performed By: #### 5 7021-8 ####[facility] LABCLIA [id number] [place] [address] Platelets (Bld) [#/Vol] 206 10*3/uL Normal 150-400 [facility] Comment on above: Order Comment: Speci men Type: BLOOD SPECIMENOrdering Facility: [facility] Address: [address] [place] [address] Performed By: #### 5 7021-8 ####[facility] LABCLIA [id number] [place] [address] RBC (Bld) [#/Vol] 4.38 10*6/uL Normal 4.20-6.00 [facility] Comment on above: Order Comment: Speci men Type: BLOOD SPECIMENOrdering Facility: [facility] Address: [address] [place] [address] Performed By: #### 5 7021-8 ####[facility] LABIA [id number] [place] [address] WBC (Bld) [#/Vol] 5.19 10*3/uL Normal 3.70-11.00 [facility] Comment on above: Order Comment: Speci men Type: BLOOD SPECIMENOrdering Facility: [facility] Address: [address] [place] [address] Performed By: #### 5 7021-8 ####[facility] LABCLIA [id number] [place] [address] CNOVSPon 08-25-2023 CNOVSP Normal [facility] Comprehensive metabolic 2000 panelon 08-25-2023 Albumin [Mass/Vol] 4.4 g/dL Normal 3.9-4.9 [facility] Comment on above: Order Comment: Speci men Type: BLOOD SPECIMENOrdering Facility: [facility] Address: [address] [place] [address] Performed By: #### 2 4323-8 ####[facility] LABCLIA [id number] [place] [address] ALP [Catalytic activity/Vol] 70 U/L Normal 38-113 [facility] Comment on above: Order Comment: Speci men Type: BLOOD SPECIMENOrdering Facility: [facility] Address: [address] [place] [address] Performed By: #### 2 4323-8 ####[facility] LABCLIA [id number] [place] [address] ALT [Catalytic activity/Vol] 25 U/L Normal 10-54 [facility] Comment on above: Order Comment: Speci men Type: BLOOD SPECIMENOrdering Facility: [facility] Address: [address] [place] [address] Performed By: #### 2 4323-8 ####[facility] LABCLIA [id number] [place] [address] Anion gap [Moles/Vol] 13 mmol/L Normal 9-18 [facility] Comment on above: Order Comment: Speci men Type: BLOOD SPECIMENOrdering Facility: [facility] Address: [address] [place] [address] Performed By: #### 2 4323-8 ####[facility] LABCLIA [id number] [place] [address] AST [Catalytic activity/Vol] 33 U/L Normal 14-40 [facility] Comment on above: Order Comment: Speci men Type: BLOOD SPECIMENOrdering Facility: [facility] Address: [address] [place] [address] Performed By: #### 2 4323-8 ####[facility] LABCLIA [id number] [place] [address] Bilirubin [Mass/Vol] 0.3 mg/dL Normal 0.2-1.3 [facility] Comment on above: Order Comment: Speci men Type: BLOOD SPECIMENOrdering Facility: [facility] Address: [address] [place] [address] Performed By: #### 2 4323-8 ####[facility] LABCLIA [id number] [place] [address] Calcium [Mass/Vol] 10.2 mg/dL Normal 8.5-10.2 [facility] Comment on above: Order Comment: Speci men Type: BLOOD SPECIMENOrdering Facility: [facility] Address: [address] [place] [address] Performed By: #### 2 4323-8 ####[facility] LABCLIA [id number] [place] [address] Chloride [Moles/Vol] 102 mmol/L Normal 97-105 [facility] Comment on above: Order Comment: Speci men Type: BLOOD SPECIMENOrdering Facility: [facility] Address: [address] [place] [address] Performed By: #### 2 4323-8 ####[facility] LABCLIA [id number] [place] [address] CO2 [Moles/Vol] 25 mmol/L Normal 22-30 [facility] Comment on above: Order Comment: Speci men Type: BLOOD SPECIMENOrdering Facility: [facility] Address: [address] [place] [address] Performed By: #### 2 4323-8 ####[facility] LABCLIA [id number] [place] [address] Creatinine [Mass/Vol] 1.19 mg/dL Normal 0.73-1.22 [facility] Comment on above: Order Comment: Speci men Type: BLOOD SPECIMENOrdering Facility: [facility] Address: [address] [place] [address] Performed By: #### 2 4323-8 ####[facility] LABCLIA [id number] [place] [address] Creatinine and Glomerular filtration rate.predicted panel (S/P/Bld) 67 mL/min/1.73m??? Normal >=60 [facility] Comment on above: Order Comment: Speci men Type: BLOOD SPECIMENOrdering Facility: [facility] Address: [address] [id number] Result Comment: Landy mated Glomerular Filtration Rate [...] actual GFR. Performed By: #### 2 4323-8 ####[facility] LABCLIA [id number] [place] [address] Glucose [Mass/Vol] 99 mg/dL Normal 74-99 [facility] Comment on above: Order Comment: Ajay rausch Type: BLOOD SPECIMENOrdering Facility: [facility] Address: [address] [place] [address] Result Comment: The [place] [employer] (ADA) provides guidance for cutoff [...] Standards of Medical Care in Diabetes 2016, [place] [employer]. Diabetes Care. 2016.39(Suppl 1). Performed By: #### 2 4323-8 ####[facility] LABCLIA [id number] [place] [address] Potassium [Moles/Vol] 3.8 mmol/L Normal 3.7-5.1 [facility] Comment on above: Order Comment: Ajay rausch Type: BLOOD SPECIMENOrdering Facility: [facility] Address: [address] [id number] Performed By: #### 2 4323-8 ####[facility] LABCLIA [id number] [place] [address] Protein [Mass/Vol] 7.9 g/dL Normal 6.3-8.0 [facility] Comment on above: Order Comment: Speci men Type: BLOOD SPECIMENOrdering Facility: [facility] Address: [address] [place] [address] Performed By: #### 2 4323-8 ####[facility] LABCLIA [id number] [place] [address] Sodium [Moles/Vol] 140 mmol/L Normal 136-144 [facility] Comment on above: Order Comment: Speci men Type: BLOOD SPECIMENOrdering Facility: [facility] Address: [address] [place] [address] Performed By: #### 2 4323-8 ####[facility] LABCLIA [id number] [place] [address] Urea nitrogen [Mass/Vol] 33 mg/dL High 9-24 [facility] Comment on above: Order Comment: Speci men Type: BLOOD SPECIMENOrdering Facility: [facility] Address: [address] [place] [address] Performed By: #### 2 4323-8 ####[facility] LABCLIA [id number] [place] [address] T4/FTI/T4Uon 08-25-2023 FTI 2.0 ug/dL Low 5.3-10.8 [facility] Comment on above: Order Comment: Speci men Type: BLOOD SPECIMENOrdering Facility: [facility] Address: [address] [place], [place] [address] Performed By: #### 3 016-3, T4FTI ####[facility] LABCLIA [id number] [facility] [place] [address] [place] T4 [Mass/Vol] 2.3 ug/dL Low 5.5-10.2 [facility] Comment on above: Order Comment: Speci men Type: BLOOD SPECIMENOrdering Facility: [facility] Address: [address] [place] [address] Performed By: #### 3 016-3, T4FTI ####[facility] LABIA [id number] [place] [address] [place] T4 uptake [Mass/Vol] 1.14 Normal 0.91-1.19 [facility] Comment on above: Order Comment: Speci men Type: BLOOD SPECIMENOrdering Facility: [facility] Address: [address] [place] [address] Performed By: #### 3 016-3, T4FTI ####[facility] LABIA [id number] [place] [address] [place] TSH SerPl-aCncon 08-25-2023 TSH Qn 109.000 m[IU]/L High 0.270-4.200 [facility] Comment on above: Order Comment: Speci men Type: BLOOD SPECIMENOrdering Facility: [facility] Address: [address] [place] [address] Performed By: #### 3 016-3, T4FTI ####[facility] [id number] [place] [address] [place] Ambulatory Visit Summaryon [...] 8:40 AM EDT With: Enrique Austin Where: [facility] Normal [address] \.br\ Medications\.br\ What How Much When Why Instructions\.br\ New cephalexin (cephalexin 500 mg Cap) 1 Capsules By Mouth Every 12 hours Rash Lung cancer BMI 21.0-21.9, adult Pickup at [facility]\.br\ New sotorasib (Lumakras 320 mg oral tablet) 90 tab(s), 0 Refill(s) \.br\ New triamcinolone topical (triamcinolone Top 0.5% Crm) 1 Application Topical 2 times a day Rash Lung cancer BMI 21.0-21.9, adult Pickup at [facility]\.br\ Unchanged alprazolam (alprazolam 0.25 mg [...] Tablets By Mouth Every day\.br\ Pharmacy Information\.br\ [facility]: [address] [place] [id number] [phone]\.br\ Allergies\.br\ No Known Allergies\.br\ Problems\.br\ Ongoing - [...] for choosing us for your care.\.br\ \.br\ [facility] 08-20-2023 Consent [phone] [id number] #1.00TIFF Normal [facility] Medicine Office/Clini c Noteon 08-20-2023 [...] q12hr, # 20 cap(s), Refills(s) 0, Pharmacy: [facility], 169.5, cm, 08/20/23 11:52:00 EST, Height/Length Dosing, 63.1, kg, 08/20/23 11:52:00 EST, Weight Dosing triamcinolone, 60 mg = 1.5 mL, Injection, IntraARTICULAR, Once, Stop date 08/20/23 12:17:00 EST, Routine, Start date 08/20/23 12:17:00 EST, 08/20/23 12:17:00 EST triamcinolone topical, 1 duong, Topical, BID, 20 gram, Refill(s) 0, [facility], 169.5, cm, 08/20/23 11:52:00 EST, Height/Length Dosing, 63.1, kg, 08/20/23 11:52:00 EST, Weight Dosing 2. Lung cancer (C34.90: Malignant neoplasm of unspecified part of unspecified bronchus or lung) pt still taking oral treatment Ordered: cephalexin, 500 mg = 1 cap(s), Oral, q12hr, # 20 cap(s), Refills(s) 0, Pharmacy: [facility], 169.5, cm, 08/20/23 11:52:00 EST, Height/Length Dosing, 63.1, kg, 08/20/23 11:52:00 EST, Weight Dosing triamcinolone topical, 1 duong, Topical, BID, 20 gram, Refill(s) 0, [facility], 169.5, cm, 08/20/23 11:52:00 EST, Height/Length Dosing, 63.1, kg, 08/20/23 11:52:00 EST, Weight Dosing 3. BMI 21.0-21.9, adult (Z68.21: Body mass index [BMI] 21.0-21.9, adult) BMI education complete Ordered: cephalexin, 500 mg = 1 cap(s), Oral, q12hr, # 20 cap(s), Refills(s) 0, Pharmacy: [facility], 169.5, cm, 08/20/23 11:52:00 EST, Height/Length Dosing, 63.1, kg, 08/20/23 11:52:00 EST, Weight Dosing triamcinolone topical, 1 duong, Topical, BID, 20 gram, Refill(s) 0, [facility], 169.5, cm, 08/20/23 11:52:00 EST, Height/Length [...] malignant neoplas (more content not included)... Normal [facility] Comment on above: Result Comment: Elec tronically Signed By: Enrique Austin\.br\Date and Time Signed: 08/20/23 12:47 EST CNOVon 08-15-2023 CNOV Normal [facility] CNPNon 08-11-2023 CNPN Normal [facility] CNOVon 08-08-2023 CNOV Normal [facility] CBC W Auto Differential pane l (Bld)on 07-28-2023 Basophils (Bld) [#/Vol] 0.03 10*3/uL Normal <0.11 [facility] Comment on above: Order Comment: Speci men Type: BLOOD SPECIMENOrdering Facility: [facility] Address: [address] [place] [address] Performed By: #### 5 7021-8 ####[facility] LABCLIA [id number] [place] [address] Basophils/100 WBC (Bld) 0.4 % Normal [facility] Comment on above: Order Comment: Speci men Type: BLOOD SPECIMENOrdering Facility: [facility] Address: [address] [place] [address] Performed By: #### 5 7021-8 ####[facility] LABCLIA [id number] [place] [address] Differential cell count method Nom (Bld) Auto Normal [facility] Comment on above: Order Comment: Speci men Type: BLOOD SPECIMENOrdering Facility: [facility] Address: [address] [place] [address] Performed By: #### 5 7021-8 ####[facility] LABCLIA [id number] [place] [address] Eosinophils (Bld) [#/Vol] 0.18 10*3/uL Normal <0.46 [facility] Comment on above: Order Comment: Speci men Type: BLOOD SPECIMENOrdering Facility: [facility] Address: [address] [place] [address] Performed By: #### 5 7021-8 ####[facility] LABCLIA [id number] [place] [address] Eosinophils/100 WBC (Bld) 2.6 % Normal [facility] Comment on above: Order Comment: Speci men Type: BLOOD SPECIMENOrdering Facility: [facility] Address: [address] [place] [address] Performed By: #### 5 7021-8 ####[facility] LABCLIA [id number] [place] [address] Erythrocyte distribution width (RBC) [Ratio] 13.2 % Normal 11.5-15.0 [facility] Comment on above: Order Comment: Speci men Type: BLOOD SPECIMENOrdering Facility: [facility] Address: [address] [place] [address] Performed By: #### 5 7021-8 ####[facility] LABCLIA [id number] [place] [address] Hematocrit (Bld) [Volume fraction] 35.5 % Low 39.0-51.0 [facility] Comment on above: Order Comment: Speci men Type: BLOOD SPECIMENOrdering Facility: [facility] Address: [address] [place] [address] Performed By: #### 5 7021-8 ####[facility] LABCLIA [id number] [place] [address] Hemoglobin (Bld) [Mass/Vol] 12.0 g/dL Low 13.0-17.0 [facility] Comment on above: Order Comment: Speci men Type: BLOOD SPECIMENOrdering Facility: [facility] Address: [address] [place] [address] Performed By: #### 5 7021-8 ####[facility] LABCLIA [id number] [place] [address] Immature granulocytes (Bld) [#/Vol] 0.04 10*3/uL Normal <0.10 [facility] Comment on above: Order Comment: Speci men Type: BLOOD SPECIMENOrdering Facility: [facility] Address: [address] [place] [address] Performed By: #### 5 7021-8 ####[facility] LABCLIA [id number] [place] [address] Immature granulocytes/100 WBC (Bld) 0.6 % Normal [facility] Comment on above: Order Comment: Speci men Type: BLOOD SPECIMENOrdering Facility: [facility] Address: [address] [place] [address] Performed By: #### 5 7021-8 ####[facility] LABCLIA [id number] [place] [address] Lymphocytes (Bld) [#/Vol] 1.31 10*3/uL Normal 1.00-4.00 [facility] Comment on above: Order Comment: Speci men Type: BLOOD SPECIMENOrdering Facility: [facility] Address: [address] [place] [address] Performed By: #### 5 7021-8 ####[facility] LABCLIA [id number] [place] [address] Lymphocytes/100 WBC (Bld) 19.2 % Normal [facility] Comment on above: Order Comment: Speci men Type: BLOOD SPECIMENOrdering Facility: [facility] Address: [address] [place] [address] Performed By: #### 5 7021-8 ####[facility] LABCLIA [id number] [place] [address] MCH (RBC) [Entitic mass] 30.4 pg Normal 26.0-34.0 [facility] Comment on above: Order Comment: Speci men Type: BLOOD SPECIMENOrdering Facility: [facility] Address: [address] [place] [address] Performed By: #### 5 7021-8 ####[facility] LABIA [id number] [place] [address] MCHC (RBC) [Mass/Vol] 33.8 g/dL Normal 30.5-36.0 [facility] Comment on above: Order Comment: Speci men Type: BLOOD SPECIMENOrdering Facility: [facility] Address: [address] [place] [address] Performed By: #### 5 7021-8 ####[facility] LABIA [id number] [place] [address] MCV (RBC) [Entitic vol] 89.9 fL Normal 80.0-100.0 [facility] Comment on above: Order Comment: Speci men Type: BLOOD SPECIMENOrdering Facility: [facility] Address: [address] [place] [address] Performed By: #### 5 7021-8 ####[facility] LABIA [id number] [place] [address] Monocytes (Bld) [#/Vol] 0.77 10*3/uL Normal <0.87 [facility] Comment on above: Order Comment: Speci men Type: BLOOD SPECIMENOrdering Facility: [facility] Address: [address] [place] [address] Performed By: #### 5 7021-8 ####[facility] LABCLIA [id number] [place] [address] Monocytes/100 WBC (Bld) 11.3 % Normal [facility] Comment on above: Order Comment: Speci men Type: BLOOD SPECIMENOrdering Facility: [facility] Address: [address] [place] [address] Performed By: #### 5 7021-8 ####[facility] LABCLIA [id number] [place] [address] Neutrophils (Bld) [#/Vol] 4.49 10*3/uL Normal 1.45-7.50 [facility] Comment on above: Order Comment: Speci men Type: BLOOD SPECIMENOrdering Facility: [facility] Address: [address] [place] [address] Performed By: #### 5 7021-8 ####[facility] LABCLIA [id number] [place] [address] Neutrophils/100 WBC (Bld) 65.9 % Normal [facility] Comment on above: Order Comment: Speci men Type: BLOOD SPECIMENOrdering Facility: [facility] Address: [address] [place] [address] Performed By: #### 5 7021-8 ####[facility] LABCLIA [id number] [place] [address] Nucleated RBC (Bld) [#/Vol] 10*3/uL Normal <0.01 [facility] Comment on above: Order Comment: Speci men Type: BLOOD SPECIMENOrdering Facility: [facility] Address: [address] [place] [address] Performed By: #### 5 7021-8 ####[facility] LABIA [id number] [place] [address] Nucleated RBC/100 WBC (Bld) [Ratio] 0.0 /100 WBC Normal [facility] Comment on above: Order Comment: Speci men Type: BLOOD SPECIMENOrdering Facility: [facility] Address: [address] [place] [address] Performed By: #### 5 7021-8 ####[facility] LABCLIA [id number] [place] [address] Platelet mean volume (Bld) [Entitic vol] 10.5 fL Normal 9.0-12.7 [facility] Comment on above: Order Comment: Speci men Type: BLOOD SPECIMENOrdering Facility: [facility] Address: [address] [place] [address] Performed By: #### 5 7021-8 ####[facility] LABCLIA [id number] [place] [address] Platelets (Bld) [#/Vol] 265 10*3/uL Normal 150-400 [facility] Comment on above: Order Comment: Speci men Type: BLOOD SPECIMENOrdering Facility: [facility] Address: [address] [place] [address] Performed By: #### 5 7021-8 ####[facility] LABCLIA [id number] [place] [address] RBC (Bld) [#/Vol] 3.95 10*6/uL Low 4.20-6.00 [facility] Comment on above: Order Comment: Speci men Type: BLOOD SPECIMENOrdering Facility: [facility] Address: [address] [place] [address] Performed By: #### 5 7021-8 ####[facility] LABCLIA [id number] [place] [address] WBC (Bld) [#/Vol] 6.82 10*3/uL Normal 3.70-11.00 [facility] Comment on above: Order Comment: Speci men Type: BLOOD SPECIMENOrdering Facility: [facility] Address: [address] [place] [address] Performed By: #### 5 7021-8 ####[facility] LABCLIA [id number] [place] [address] CNOVSPon 07-28-2023 CNOVSP Normal [facility] Ambulatory Visit Summaryon 0 07-23-2023 Ambulatory Visit [...] 9:00 AM EDT With: Enrique Austin Where: [facility] Normal [address] [place] [phone] \.br\ Medications\.br\ What How Much When Instructions\.br\ [...] choosing us for your care.\.br\ \.br\ [facility] Office/Clini c Dex 07-23-2023 [...] Daily, 16 gram, Refill(s) 0, each nostril, [facility], 169.6, cm, 03/17/23 10:54:00 EDT, Height/Length Dosing, 62, kg, 03/17/23 10:54:00 EDT, Weight Dosing 2. Chest congestion (R09.89: Other specified symptoms and signs involving the circulatory and respiratory systems) pt having chest congestion body aches and coughing up yellow phlegm. 3. Anxiety (F41.9: Anxiety disorder, unspecified) meds refilled Ordered: fluticasone nasal, 2 spray(s), Nasal, Daily, 16 gram, Refill(s) 0, each nostril, [facility], 169.6, cm, 03/17/23 10:54:00 EDT, Height/Length Dosing, 62, kg, 03/17/23 10:54:00 EDT, Weight Dosing 4. BMI 21.0-21.9, adult (Z68.21: Body mass index [BMI] 21.0-21.9, adult) BMI education complete Ordered: fluticasone nasal, 2 spray(s), Nasal, Daily, 16 gram, Refill(s) 0, each nostril, [facility], 169.6, cm, 03/17/23 10:54:00 EDT, Height/Length Dosing, 62, kg, 03/17/23 10:54:00 EDT, Weight Dosing 5. Former smoker (Z87.891: Personal history of nicotine dependence) continue not smoking Ordered: fluticasone nasal, 2 spray(s), Nasal, Daily, 16 gram, Refill(s) 0, each nostril, [facility], 169.6, cm, 03/17/23 10:54:00 EDT, Height/Length Dosing, 62, kg, 03/17/23 10:54:00 EDT, Weight Dosing Orders: alprazolam, 0.25 mg = 1 tab(s), Oral, TID, PRN for anxiety, # 60 tab(s), Refills(s) 0, Pharmacy: [facility], 169.6, cm, 07/23/23 10:23:00 EST, Height/Length Dosing, 63, kg, 07/23/23 10:23:00 EST, Weight Dosing alprazolam, 0.25 mg = 1 tab(s), Oral, TID, PRN for anxiety, # 30 tab(s), Refills(s) 1, Pharmacy: [facility], 169.6, cm, 04/16/23 10:21:00 EDT, Height/Length Dosing, 63.8, kg, 04/16/23 10:30:00 EDT, Weight Dosing azithromycin, = 1 packet(s), Oral, As Directed, as directed on package labeling, X 5 day(s), # 6 tab(s), Refills(s) 0, Pharmacy: [facility], 169.6, cm, 07/23/23 10:23:00 EST, Height/Length Dosing, 63, kg, 07/23/23 10:23:00 EST, Weight Dosing methylPREDNISolone, = 1 packet(s), Oral, Once, as directed on package labeling, # 21 tab(s), Refills(s) 0, Pharmacy: [facility], 169.6, cm, 07/23/23 10:23:00 EST, Height/Length [...] 1 tab(s) (more content not included)... [facility] Comment on above: Result Comment: Elec tronically Signed By: Enrique Austin\.br\Date and Time Signed: 07/23/23 10:41 EST CNPNon 07-18-2023 CNPN [facility] [place] [facility] Medication Consenton 023 Medication Consent [id number] Normal [facility] Ambulatory Visit Summaryon 1 09-09-2022 Ambulatory [...] mg Tab) fluticasone nasal (Flonase 0.05 mg/inh [place]) isosorbide mononitrate (isosorbide mononitrate 30 mg ER [...] 9:00 AM EDT With: Enrique [place] Where: [facility] [place] Normal [address] [place] [address]- \.br\ Medications\.br\ What How Much When Why [...] Unchanged fluticasone nasal (Flonase 0.05 mg/ inh [place]) 2 Sprays Nasal Inhalation Every day Rash [...] [facility]av [facility] Medicine Office/Clini c Noteon 07-09-2023 Family [...] 1 tab(s), Oral, Daily Flonase 0.05 mg/inh [place], 2 spray(s), Nasal, Daily, Not taking isosorbide [...] (COVID-19) mRNA-1273 vaccine 11/15/2020 Recorded Normal [facility] Comment on above: Result Comment: Elec tronically Signed By: Cate MENARD, Enrique Beatty\.br\Date and Time Signed: 07/09/23 10:27 EST CBC W Auto Differential pane l (Bld)on 06-30-2023 Basophils (Bld) [#/Vol] 0.03 10*3/uL Normal <0.11 [facility] Comment on above: Order Comment: Speci men Type: BLOOD SPECIMENOrdering Facility: [facility] Address: [address] [place] [address] Performed By: #### 5 7021-8 ####[facility] LABCLIA [id number] [place] [address] Basophils/100 WBC (Bld) 0.5 % Normal [facility] Comment on above: Order Comment: Speci men Type: BLOOD SPECIMENOrdering Facility: [facility] Address: [address] [place] [address] Performed By: #### 5 7021-8 ####[facility] LABCLIA [id number] [place] [address] Differential cell count method Nom (Bld) Auto Normal [facility] Comment on above: Order Comment: Speci men Type: BLOOD SPECIMENOrdering Facility: [facility] Address: [address] [place] [address] Performed By: #### 5 7021-8 ####[facility] LABCLIA [id number] [place] [address] Eosinophils (Bld) [#/Vol] 0.27 10*3/uL Normal <0.46 [facility] Comment on above: Order Comment: Speci men Type: BLOOD SPECIMENOrdering Facility: [facility] Address: [address] [place] [address] Performed By: #### 5 7021-8 ####[facility] LABCLIA [id number] [place] [address] Eosinophils/100 WBC (Bld) 4.5 % Normal [facility] Comment on above: Order Comment: Speci men Type: BLOOD SPECIMENOrdering Facility: [facility] Address: [address] [place] [address] Performed By: #### 5 7021-8 ####[facility] LABCLIA [id number] [place] [address] Erythrocyte distribution width (RBC) [Ratio] 12.7 % Normal 11.5-15.0 [facility] Comment on above: Order Comment: Speci men Type: BLOOD SPECIMENOrdering Facility: [facility] Address: [address] [place] [address] Performed By: #### 5 7021-8 ####[facility] LABCLIA [id number] [place] [address] Hematocrit (Bld) [Volume fraction] 34.6 % Low 39.0-51.0 [facility] Comment on above: Order Comment: Speci men Type: BLOOD SPECIMENOrdering Facility: [facility] Address: [address] [place] [address] Performed By: #### 5 7021-8 ####[facility] LABCLIA [id number] [place] [address] Hemoglobin (Bld) [Mass/Vol] 11.7 g/dL Low 13.0-17.0 [facility] Comment on above: Order Comment: Speci men Type: BLOOD SPECIMENOrdering Facility: [facility] Address: [address] [place] [address] Performed By: #### 5 7021-8 ####[facility] LABCLIA [id number] [place] [address] Immature granulocytes (Bld) [#/Vol] 0.03 10*3/uL Normal <0.10 [facility] Comment on above: Order Comment: Speci men Type: BLOOD SPECIMENOrdering Facility: [facility] Address: [address] [place] [address] Performed By: #### 5 7021-8 ####[facility] LABCLIA [id number] [place] [address] Immature granulocytes/100 WBC (Bld) 0.5 % Normal [facility] Comment on above: Order Comment: Speci men Type: BLOOD SPECIMENOrdering Facility: [facility] Address: [address] [place] [address] Performed By: #### 5 7021-8 ####[facility] LABIA [id number] [place] [address] Lymphocytes (Bld) [#/Vol] 1.32 10*3/uL Normal 1.00-4.00 [facility] Comment on above: Order Comment: Speci men Type: BLOOD SPECIMENOrdering Facility: [facility] Address: [address] [place] [address] Performed By: #### 5 7021-8 ####[facility] LABCLIA [id number] [place] [address] Lymphocytes/100 WBC (Bld) 22.0 % Normal [facility] Comment on above: Order Comment: Speci men Type: BLOOD SPECIMENOrdering Facility: [facility] Address: [address] [place] [address] Performed By: #### 5 7021-8 ####[facility] LABIA [id number] [place] [address] MCH (RBC) [Entitic mass] 31.0 pg Normal 26.0-34.0 [facility] Comment on above: Order Comment: Speci men Type: BLOOD SPECIMENOrdering Facility: [facility] Address: [address] [place] [address] Performed By: #### 5 7021-8 ####[facility] LABCLIA [id number] [place] [address] MCHC (RBC) [Mass/Vol] 33.8 g/dL Normal 30.5-36.0 [facility] Comment on above: Order Comment: Speci men Type: BLOOD SPECIMENOrdering Facility: [facility] Address: [address] [place] [address] Performed By: #### 5 7021-8 ####[facility] LABCLIA [id number] [place] [address] MCV (RBC) [Entitic vol] 91.5 fL Normal 80.0-100.0 [facility] Comment on above: Order Comment: Speci men Type: BLOOD SPECIMENOrdering Facility: [facility] Address: [address] [place] [address] Performed By: #### 5 7021-8 ####[facility] LABCLIA [id number] [place] [address] Monocytes (Bld) [#/Vol] 1.12 10*3/uL High <0.87 [facility] Comment on above: Order Comment: Speci men Type: BLOOD SPECIMENOrdering Facility: [facility] Address: [address] [place] [address] Performed By: #### 5 7021-8 ####[facility] LABCLIA [id number] [place] [address] Monocytes/100 WBC (Bld) 18.7 % Normal [facility] Comment on above: Order Comment: Speci men Type: BLOOD SPECIMENOrdering Facility: [facility] Address: [address] [place] [address] Performed By: #### 5 7021-8 ####[facility] LABCLIA [id number] [place] [address] Neutrophils (Bld) [#/Vol] 3.23 10*3/uL Normal 1.45-7.50 [facility] Comment on above: Order Comment: Speci men Type: BLOOD SPECIMENOrdering Facility: [facility] Address: [address] [place] [address] Performed By: #### 5 7021-8 ####[facility] LABCLIA [id number] [place] [address] Neutrophils/100 WBC (Bld) 53.8 % Normal [facility] Comment on above: Order Comment: Speci men Type: BLOOD SPECIMENOrdering Facility: [facility] Address: [address] [place] [address] Performed By: #### 5 7021-8 ####[facility] LABCLIA [id number] [place] [address] Nucleated RBC (Bld) [#/Vol] 10*3/uL Normal <0.01 [facility] Comment on above: Order Comment: Speci men Type: BLOOD SPECIMENOrdering Facility: [facility] Address: [address] [place] [address] Performed By: #### 5 7021-8 ####[facility] LABCLIA [id number] [place] [address] Nucleated RBC/100 WBC (Bld) [Ratio] 0.0 /100 WBC Normal [facility] Comment on above: Order Comment: Speci men Type: BLOOD SPECIMENOrdering Facility: [facility] Address: [address] [place] [address] Performed By: #### 5 7021-8 ####[facility] LABCLIA [id number] [place] [address] Platelet mean volume (Bld) [Entitic vol] 10.5 fL Normal 9.0-12.7 [facility] Comment on above: Order Comment: Speci men Type: BLOOD SPECIMENOrdering Facility: [facility] Address: [address] [place] [address] Performed By: #### 5 7021-8 ####[facility] LABCLIA [id number] [place] [address] Platelets (Bld) [#/Vol] 223 10*3/uL Normal 150-400 [facility] Comment on above: Order Comment: Speci men Type: BLOOD SPECIMENOrdering Facility: [facility] Address: [address] [place] [address] Performed By: #### 5 7021-8 ####[facility] LABIA [id number] [place] [address] RBC (Bld) [#/Vol] 3.78 10*6/uL Low 4.20-6.00 [facility] Comment on above: Order Comment: Speci men Type: BLOOD SPECIMENOrdering Facility: [facility] Address: [address] [place] [address] Performed By: #### 5 7021-8 ####[facility] [id number] [place] [address] WBC (Bld) [#/Vol] 6.00 10*3/uL Normal 3.70-11.00 [facility] Comment on above: Order Comment: Speci men Type: BLOOD SPECIMENOrdering Facility: [facility] Address: [address] [place] [address] Performed By: #### 5 7021-8 ####[facility] LABIA [id number] [place] [address] CNOVon 06-30-2023 CNOV Normal [facility] CNOVSPon 06-30-2023 CNOVSP Normal [facility] Comprehensive metabolic 2000 panelon 06-30-2023 Albumin [Mass/Vol] 4.0 g/dL Normal 3.9-4.9 [facility] Comment on above: Order Comment: Speci men Type: BLOOD SPECIMENOrdering Facility: [facility] Address: [address] [place] [address] Performed By: #### 2 4323-8 ####[facility] LABIA [id number] [place] [address] ALP [Catalytic activity/Vol] 79 U/L Normal 38-113 [facility] Comment on above: Order Comment: Speci men Type: BLOOD SPECIMENOrdering Facility: [facility] Address: [address] [place] [address] Performed By: #### 2 4323-8 ####[facility] LABCLIA [id number] [place] [address] ALT [Catalytic activity/Vol] 30 U/L Normal 10-54 [facility] Comment on above: Order Comment: Speci men Type: BLOOD SPECIMENOrdering Facility: [facility] Address: [address] [place] [address] Performed By: #### 2 4323-8 ####[facility] LABCLIA [id number] [place] [address] Anion gap [Moles/Vol] 12 mmol/L Normal 9-18 [facility] Comment on above: Order Comment: Speci men Type: BLOOD SPECIMENOrdering Facility: [facility] Address: [address] [place] [address] Performed By: #### 2 4323-8 ####[facility] LABCLIA [id number] [place] [address] AST [Catalytic activity/Vol] 36 U/L Normal 14-40 [facility] Comment on above: Order Comment: Speci men Type: BLOOD SPECIMENOrdering Facility: [facility] Address: [address] [place] [address] Performed By: #### 2 4323-8 ####[facility] LABCLIA [id number] [place] [address] Bilirubin [Mass/Vol] 0.5 mg/dL Normal 0.2-1.3 [facility] Comment on above: Order Comment: Speci men Type: BLOOD SPECIMENOrdering Facility: [facility] Address: [address] [place] [address] Performed By: #### 2 4323-8 ####[facility] LABCLIA [id number] [place] [address] Calcium [Mass/Vol] 9.6 mg/dL Normal 8.5-10.2 [facility] Comment on above: Order Comment: Speci men Type: BLOOD SPECIMENOrdering Facility: [facility] Address: [address] [place] [address] Performed By: #### 2 4323-8 ####[facility] LABCLIA [id number] [place] [address] Chloride [Moles/Vol] 101 mmol/L Normal 97-105 [facility] Comment on above: Order Comment: Speci men Type: BLOOD SPECIMENOrdering Facility: [facility] Address: [address] [place] [address] Performed By: #### 2 4323-8 ####[facility] LABCLIA [id number] [place] [address] CO2 [Moles/Vol] 26 mmol/L Normal 22-30 [facility] Comment on above: Order Comment: Speci men Type: BLOOD SPECIMENOrdering Facility: [facility] Address: [address] [place] [address] Performed By: #### 2 4323-8 ####[facility] LABCLIA [id number] [place] [address] Creatinine [Mass/Vol] 1.34 mg/dL High 0.73-1.22 [facility] Comment on above: Order Comment: Speci men Type: BLOOD SPECIMENOrdering Facility: [facility] Address: [address] [place] [address] Performed By: #### 2 4323-8 ####[facility] LABCLIA [id number] [place] [address] Creatinine and Glomerular filtration rate.predicted panel (S/P/Bld) 58 mL/min/1.73m??? Low >=60 [facility] Comment on above: Order Comment: Speci men Type: BLOOD SPECIMENOrdering Facility: [facility] Address: [address] [place] [address] Result Comment: Landy mated Glomerular Filtration Rate [...] actual GFR. Performed By: #### 2 4323-8 ####[facility] LABCLIA [id number] [place] [address] Glucose [Mass/Vol] 100 mg/dL High 74-99 [facility] Comment on above: Order Comment: Ajay men Type: BLOOD SPECIMENOrdering Facility: [facility] Address: [address] [place] [address] Result Comment: The [place] [employer] (ADA) provides guidance for cutoff [...] Standards of Medical Care in Diabetes 2016, [place] [employer]. Diabetes Care. 2016.39(Suppl 1). Performed By: #### 2 4323-8 ####[facility] LABCLIA [id number] [place] [address] Potassium [Moles/Vol] 4.0 mmol/L Normal 3.7-5.1 [facility] Comment on above: Order Comment: Ajay rausch Type: BLOOD SPECIMENOrdering Facility: [facility] Address: [address] [place] [address] Performed By: #### 2 4323-8 ####[facility] LABCLIA [id number] [place] [address] Protein [Mass/Vol] 7.4 g/dL Normal 6.3-8.0 [facility] Comment on above: Order Comment: Speci men Type: BLOOD SPECIMENOrdering Facility: [facility] Address: [address] [place] [address] Performed By: #### 2 4323-8 ####[facility] LABCLIA [id number] [place] [address] Sodium [Moles/Vol] 139 mmol/L Normal 136-144 [facility] Comment on above: Order Comment: Speci men Type: BLOOD SPECIMENOrdering Facility: [facility] Address: [address] [place] [address] Performed By: #### 2 4323-8 ####[facility] LABCLIA [id number] [place] [address] Urea nitrogen [Mass/Vol] 28 mg/dL High 9-24 [facility] Comment on above: Order Comment: Speci men Type: BLOOD SPECIMENOrdering Facility: [facility] Address: [address] [place] [address] Performed By: #### 2 4323-8 ####[facility] LABCLIA [id number] [place] [address] TSH SerPl-aCncon 06-30-2023 TSH Qn 2.840 m[IU]/L Normal 0.270-4.200 [facility] Comment on above: Order Comment: Speci men Type: BLOOD SPECIMENOrdering Facility: [facility] Address: [address] [place] [address] Performed By: #### 3 016-3 ####[facility] LABCLIA [id number] [place] [address] [place] CNOVon 06-23-2023 CNOV Normal [facility] CNOVon 06-13-2023 CNOV Normal [facility] CNOVon 06-10-2023 CNOV Normal [facility] CBC W Auto Differential pane l (Bld)on 06-02-2023 Basophils (Bld) [#/Vol] <0.11 k/uL [facility] Basophils/100 WBC (Bld) 0.4 % [facility] Differential cell count method Nom (Bld) Auto [facility] Eosinophils (Bld) [#/Vol] 0.08 10*3/uL <0.46 k/uL [facility] Eosinophils/100 WBC (Bld) 1.5 % [facility] Erythrocyte distribution width (RBC) [Ratio] 13.9 % 11.5 - 15.0 % [facility] Hematocrit (Bld) [Volume fraction] 37.5 % Low 39.0 - 51.0 % [facility] Hemoglobin (Bld) [Mass/Vol] 12.9 g/dL Low 13.0 - 17.0 g/dL [facility] Immature granulocytes (Bld) [#/Vol] 0.03 10*3/uL <0.10 k/uL [facility] Immature granulocytes/100 WBC (Bld) 0.6 % [facility] Lymphocytes (Bld) [#/Vol] 0.76 10*3/uL Low 1.00 - 4.00 k/uL [facility] Lymphocytes/100 WBC (Bld) 14.1 % [facility] MCH (RBC) [Entitic mass] 31.7 pg 26.0 - 34.0 pg [facility] MCHC (RBC) [Mass/Vol] 34.4 g/dL 30.5 - 36.0 g/dL [facility] MCV (RBC) [Entitic vol] 92.1 fL 80.0 - 100.0 fL [facility] Monocytes (Bld) [#/Vol] 0.67 10*3/uL <0.87 k/uL [facility] Monocytes/100 WBC (Bld) 12.4 % [facility] Neutrophils (Bld) [#/Vol] 3.84 10*3/uL 1.45 - 7.50 k/uL [facility] Neutrophils/100 WBC (Bld) 71.0 % [facility] Nucleated RBC (Bld) [#/Vol] <0.01 k/uL [facility] Nucleated RBC/100 WBC (Bld) [Ratio] 0.0 /100 WBC [facility] Platelet mean volume (Bld) [Entitic vol] 10.6 fL 9.0 - 12.7 fL [facility] Platelets (Bld) [#/Vol] 205 10*3/uL 150 - 400 k/uL [facility] RBC (Bld) [#/Vol] 4.07 10*6/uL Low 4.20 - 6.00 m/uL [facility] WBC (Bld) [#/Vol] 5.40 10*3/uL 3.70 - 11.00 k/u L [facility] Basophils (Bld) [#/Vol] 10*3/uL Normal <0.11 [facility] Comment on above: Order Comment: Speci men Type: BLOOD SPECIMENOrdering Facility: [facility] Address: [address] [place] [address] Performed By: #### 5 7021-8 ####[facility] LABCLIA [id number] [place] [address] Basophils/100 WBC (Bld) 0.4 % Normal [facility] Comment on above: Order Comment: Speci men Type: BLOOD SPECIMENOrdering Facility: [facility] Address: [address] [place] [address] Performed By: #### 5 7021-8 ####[facility] LABCLIA [id number] [place] [address] Differential cell count method Nom (Bld) Auto Normal [facility] Comment on above: Order Comment: Speci men Type: BLOOD SPECIMENOrdering Facility: [facility] Address: [address] [place] [address] Performed By: #### 5 7021-8 ####[facility] LABCLIA [id number] [place] [address] Eosinophils (Bld) [#/Vol] 0.08 10*3/uL Normal <0.46 [facility] Comment on above: Order Comment: Speci men Type: BLOOD SPECIMENOrdering Facility: [facility] Address: [address] [place] [address] Performed By: #### 5 7021-8 ####[facility] LABCLIA [id number] [place] [address] Eosinophils/100 WBC (Bld) 1.5 % Normal [facility] Comment on above: Order Comment: Speci men Type: BLOOD SPECIMENOrdering Facility: [facility] Address: [address] [place] [address] Performed By: #### 5 7021-8 ####[facility] LABCLIA [id number] [place] [address] Erythrocyte distribution width (RBC) [Ratio] 13.9 % Normal 11.5-15.0 [facility] Comment on above: Order Comment: Speci men Type: BLOOD SPECIMENOrdering Facility: [facility] Address: [address] [place] [address] Performed By: #### 5 7021-8 ####[facility] LABCLIA [id number] [place] [address] Hematocrit (Bld) [Volume fraction] 37.5 % Low 39.0-51.0 [facility] Comment on above: Order Comment: Speci men Type: BLOOD SPECIMENOrdering Facility: [facility] Address: [address] [place] [address] Performed By: #### 5 7021-8 ####[facility] LABCLIA [id number] [place] [address] Hemoglobin (Bld) [Mass/Vol] 12.9 g/dL Low 13.0-17.0 [facility] Comment on above: Order Comment: Speci men Type: BLOOD SPECIMENOrdering Facility: [facility] Address: [address] [place] [address] Performed By: #### 5 7021-8 ####[facility] LABCLIA [id number] [place] [address] Immature granulocytes (Bld) [#/Vol] 0.03 10*3/uL Normal <0.10 [facility] Comment on above: Order Comment: Speci men Type: BLOOD SPECIMENOrdering Facility: [facility] Address: [address] [place] [address] Performed By: #### 5 7021-8 ####[facility] LABCLIA [id number] [place] [address] Immature granulocytes/100 WBC (Bld) 0.6 % Normal [facility] Comment on above: Order Comment: Speci men Type: BLOOD SPECIMENOrdering Facility: [facility] Address: [address] [place] [address] Performed By: #### 5 7021-8 ####[facility] LABCLIA [id number] [place] [address] Lymphocytes (Bld) [#/Vol] 0.76 10*3/uL Low 1.00-4.00 [facility] Comment on above: Order Comment: Speci men Type: BLOOD SPECIMENOrdering Facility: [facility] Address: [address] [place] [address] Performed By: #### 5 7021-8 ####[facility] LABCLIA [id number] [place] [address] Lymphocytes/100 WBC (Bld) 14.1 % Normal [facility] Comment on above: Order Comment: Speci men Type: BLOOD SPECIMENOrdering Facility: [facility] Address: [address] [place] [address] Performed By: #### 5 7021-8 ####[facility] LABCLIA [id number] [place] [address] MCH (RBC) [Entitic mass] 31.7 pg Normal 26.0-34.0 [facility] Comment on above: Order Comment: Speci men Type: BLOOD SPECIMENOrdering Facility: [facility] Address: [address] [place] [address] Performed By: #### 5 7021-8 ####[facility] LABCLIA [id number] [place] [address] MCHC (RBC) [Mass/Vol] 34.4 g/dL Normal 30.5-36.0 [facility] Comment on above: Order Comment: Speci men Type: BLOOD SPECIMENOrdering Facility: [facility] Address: [address] [place] [address] Performed By: #### 5 7021-8 ####[facility] LABCLIA [id number] [place] [address] MCV (RBC) [Entitic vol] 92.1 fL Normal 80.0-100.0 [facility] Comment on above: Order Comment: Speci men Type: BLOOD SPECIMENOrdering Facility: [facility] Address: [address] [place] [address] Performed By: #### 5 7021-8 ####[facility] LABCLIA [id number] [place] [address] Monocytes (Bld) [#/Vol] 0.67 10*3/uL Normal <0.87 [facility] Comment on above: Order Comment: Speci men Type: BLOOD SPECIMENOrdering Facility: [facility] Address: [address] [place] [address] Performed By: #### 5 7021-8 ####[facility] LABCLIA [id number] [place] [address] Monocytes/100 WBC (Bld) 12.4 % Normal [facility] Comment on above: Order Comment: Speci men Type: BLOOD SPECIMENOrdering Facility: [facility] Address: [address] [place] [address] Performed By: #### 5 7021-8 ####[facility] LABCLIA [id number] [place] [address] Neutrophils (Bld) [#/Vol] 3.84 10*3/uL Normal 1.45-7.50 [facility] Comment on above: Order Comment: Speci men Type: BLOOD SPECIMENOrdering Facility: [facility] Address: [address] [place] [address] Performed By: #### 5 7021-8 ####[facility] LABCLIA [id number] [place] [address] Neutrophils/100 WBC (Bld) 71.0 % Normal [facility] Comment on above: Order Comment: Speci men Type: BLOOD SPECIMENOrdering Facility: [facility] Address: [address] [place] [address] Performed By: #### 5 7021-8 ####[facility] LABCLIA [id number] [place] [address] Nucleated RBC (Bld) [#/Vol] 10*3/uL Normal <0.01 [facility] Comment on above: Order Comment: Speci men Type: BLOOD SPECIMENOrdering Facility: [facility] Address: [address] [place] [address] Performed By: #### 5 7021-8 ####[facility] LABCLIA [id number] [place] [address] Nucleated RBC/100 WBC (Bld) [Ratio] 0.0 /100 WBC Normal [facility] Comment on above: Order Comment: Speci men Type: BLOOD SPECIMENOrdering Facility: [facility] Address: [address] [place] [address] Performed By: #### 5 7021-8 ####[facility] LABCLIA [id number] [place] [address] Platelet mean volume (Bld) [Entitic vol] 10.6 fL Normal 9.0-12.7 [facility] Comment on above: Order Comment: Speci men Type: BLOOD SPECIMENOrdering Facility: [facility] Address: [address] [place] [address] Performed By: #### 5 7021-8 ####[facility] LABIA [id number] [place] [address] Platelets (Bld) [#/Vol] 205 10*3/uL Normal 150-400 [facility] Comment on above: Order Comment: Speci men Type: BLOOD SPECIMENOrdering Facility: [facility] Address: [address] [place] [address] [place] [address] Performed By: #### 5 7021-8 ####[facility] LABCLIA [id number] [place] [address] RBC (Bld) [#/Vol] 4.07 10*6/uL Low 4.20-6.00 [facility] Comment on above: Order Comment: Speci men Type: BLOOD SPECIMENOrdering Facility: [facility] Address: [address] [place] [address] Performed By: #### 5 7021-8 ####[facility] LABCLIA [id number] [place] [address] WBC (Bld) [#/Vol] 5.40 10*3/uL Normal 3.70-11.00 [facility] Comment on above: Order Comment: Speci men Type: BLOOD SPECIMENOrdering Facility: [facility] Address: [address] [place] [id number] Performed By: #### 5 7021-8 ####[facility] LABCLIA [id number] [place] [address] CNOVSPon 06-02-2023 CNOVSP Normal [facility] Comprehensive metabolic 2000 panelon 06-02-2023 Albumin [Mass/Vol] 4.3 g/dL 3.9 - 4.9 g/dL [facility] ALP [Catalytic activity/Vol] 58 U/L 38 - 113 U/L [facility] ALT [Catalytic activity/Vol] 14 U/L 10 - 54 U/L [facility] Anion gap [Moles/Vol] 10 mmol/L 9 - 18 mmol/L [facility] AST [Catalytic activity/Vol] 18 U/L 14 - 40 U/L [facility] Bilirubin [Mass/Vol] 0.5 mg/dL 0.2 - 1.3 mg/dL [facility] Calcium [Mass/Vol] 9.8 mg/dL 8.5 - 10.2 mg/dL [facility] Chloride [Moles/Vol] 102 mmol/L 97 - 105 mmol/L [facility] CO2 [Moles/Vol] 26 mmol/L 22 - 30 mmol/L [facility] Creatinine [Mass/Vol] 0.90 mg/dL 0.73 - 1.22 mg/dL [facility] Estimated Glomerular Filtration Rate 94 mL/min/1.73m >=60 mL/min/1.73m [facility] Glucose [Mass/Vol] 117 mg/dL High 74 - 99 mg/dL [facility] Potassium [Moles/Vol] 3.5 mmol/L Low 3.7 - 5.1 mmol/L [facility] Protein [Mass/Vol] 7.7 g/dL 6.3 - 8.0 g/dL [facility] Sodium [Moles/Vol] 138 mmol/L 136 - 144 mmol/L [facility] Urea nitrogen [Mass/Vol] 24 mg/dL 9 - 24 mg/dL [facility] Albumin [Mass/Vol] 4.3 g/dL Normal 3.9-4.9 [facility] Comment on above: Order Comment: Speci men Type: BLOOD SPECIMENOrdering Facility: [facility] Address: [address] [place] [address] Performed By: #### 2 4323-8 ####[facility] LABCLIA [id number] [place] [address] ALP [Catalytic activity/Vol] 58 U/L Normal 38-113 [facility] Comment on above: Order Comment: Speci men Type: BLOOD SPECIMENOrdering Facility: [facility] Address: [address] [place] [address] Performed By: #### 2 4323-8 ####[facility] LABCLIA [id number] [place] [address] ALT [Catalytic activity/Vol] 14 U/L Normal 10-54 [facility] Comment on above: Order Comment: Speci men Type: BLOOD SPECIMENOrdering Facility: [facility] Address: [address] [place] [address] Performed By: #### 2 4323-8 ####[facility] LABCLIA [id number] [place] [address] Anion gap [Moles/Vol] 10 mmol/L Normal 9-18 [facility] Comment on above: Order Comment: Speci men Type: BLOOD SPECIMENOrdering Facility: [facility] Address: [address] [place] [address] Performed By: #### 2 4323-8 ####[facility] LABCLIA [id number] [place] [address] AST [Catalytic activity/Vol] 18 U/L Normal 14-40 [facility] Comment on above: Order Comment: Speci men Type: BLOOD SPECIMENOrdering Facility: [facility] Address: [address] [place] [address] Performed By: #### 2 4323-8 ####[facility] LABCLIA [id number] [place] [address] Bilirubin [Mass/Vol] 0.5 mg/dL Normal 0.2-1.3 [facility] Comment on above: Order Comment: Speci men Type: BLOOD SPECIMENOrdering Facility: [facility] Address: [address] [place] [address] Performed By: #### 2 4323-8 ####[facility] LABCLIA [id number] [place] [address] Calcium [Mass/Vol] 9.8 mg/dL Normal 8.5-10.2 [facility] Comment on above: Order Comment: Speci men Type: BLOOD SPECIMENOrdering Facility: [facility] Address: [address] [place] [address] Performed By: #### 2 4323-8 ####[facility] LABCLIA [id number] [place] [address] Chloride [Moles/Vol] 102 mmol/L Normal 97-105 [facility] Comment on above: Order Comment: Speci men Type: BLOOD SPECIMENOrdering Facility: [facility] Address: [address] [place] [address] Performed By: #### 2 4323-8 ####[facility] LABCLIA [id number] [place] [address] CO2 [Moles/Vol] 26 mmol/L Normal 22-30 [facility] Comment on above: Order Comment: Speci men Type: BLOOD SPECIMENOrdering Facility: [facility] Address: [address] [place] [address] Performed By: #### 2 4323-8 ####[facility] LABCLIA [id number] [place] [address] Creatinine [Mass/Vol] 0.90 mg/dL Normal 0.73-1.22 [facility] Comment on above: Order Comment: Speci men Type: BLOOD SPECIMENOrdering Facility: [facility] Address: [address] [place] [address] Performed By: #### 2 4323-8 ####[facility] LABCLIA [id number] [place] [address] Creatinine and Glomerular filtration rate.predicted panel (S/P/Bld) 94 mL/min/1.73m??? Normal >=60 [facility] Comment on above: Order Comment: Speci men Type: BLOOD SPECIMENOrdering Facility: [facility] Address: [address] [place] [address] Result Comment: Landy mated Glomerular Filtration Rate [...] actual GFR. Performed By: #### 2 4323-8 ####[facility] LABCLIA [id number] [place] [address] Glucose [Mass/Vol] 117 mg/dL High 74-99 [facility] Comment on above: Order Comment: Speci men Type: BLOOD SPECIMENOrdering Facility: [facility] Address: [address] [place] [address] Result Comment: The [place] [employer] (ADA) provides guidance for cutoff [...] Standards of Medical Care in Diabetes 2016, [place] [employer]. Diabetes Care. 2016.39(Suppl 1). Performed By: #### 2 4323-8 ####[facility] LABCLIA [id number] [place] [address] Potassium [Moles/Vol] 3.5 mmol/L Low 3.7-5.1 [facility] Comment on above: Order Comment: Speci men Type: BLOOD SPECIMENOrdering Facility: [facility] Address: [address] [place] [address] Performed By: #### 2 4323-8 ####[facility] LABCLIA [id number] [place] [address] Protein [Mass/Vol] 7.7 g/dL Normal 6.3-8.0 [facility] Comment on above: Order Comment: Speci men Type: BLOOD SPECIMENOrdering Facility: [facility] Address: [address] [place] [address] Performed By: #### 2 4323-8 ####[facility] LABCLIA [id number] [place] [address] Sodium [Moles/Vol] 138 mmol/L Normal 136-144 [facility] Comment on above: Order Comment: Speci men Type: BLOOD SPECIMENOrdering Facility: [facility] Address: [address] [place] [address] Performed By: #### 2 4323-8 ####[facility] LABCLIA [id number] [place] [address] Urea nitrogen [Mass/Vol] 24 mg/dL Normal 9-24 [facility] Comment on above: Order Comment: Speci men Type: BLOOD SPECIMENOrdering Facility: [facility] Address: [address] [place] [address] Performed By: #### 2 4323-8 ####[facility] LABCLIA [id number] [place] [address] CNCNPATEDon 05-30-2023 CNCNPATED Normal [facility] CNOVon 05-30-2023 CNOV Normal [facility] CNOVon 05-27-2023 CNOV Normal [facility] CNCNPATEDon 05-20-2023 CNCNPATED Normal [facility] CNPNon 05-20-2023 CNPN Normal [facility] CNPNon 05-19-2023 CNPN Normal [facility] CNOVon 05-16-2023 CNOV Normal [facility] CNPNon 05-15-2023 CNPN Normal [facility] CNPNon 05-14-2023 CNPN Normal [facility] CBC W Auto Differential pane l (Bld)on 05-13-2023 Basophils (Bld) [#/Vol] 10*3/uL Normal <0.11 [facility] Comment on above: Order Comment: Speci men Type: BLOOD SPECIMENOrdering Facility: [facility] Address: [place] [address] Performed By: #### 5 7021-8 ####[facility] LABCLIA [id number] [place] [address] Basophils/100 WBC (Bld) 0.3 % Normal [facility] Comment on above: Order Comment: Speci men Type: BLOOD SPECIMENOrdering Facility: [facility] Address: [address] [place] [address] Performed By: #### 5 7021-8 ####[facility] LABCLIA [id number] [place] [address] Differential cell count method Nom (Bld) Auto Normal [facility] Comment on above: Order Comment: Speci men Type: BLOOD SPECIMENOrdering Facility: [facility] Address: [address] [place] [address] Performed By: #### 5 7021-8 ####[facility] LABCLIA [id number] [place] [address] Eosinophils (Bld) [#/Vol] 0.14 10*3/uL Normal <0.46 [facility] Comment on above: Order Comment: Speci men Type: BLOOD SPECIMENOrdering Facility: [facility] Address: [address] [place] [address] Performed By: #### 5 7021-8 ####[facility] LABCLIA [id number] [place] [address] Eosinophils/100 WBC (Bld) 2.3 % Normal [facility] Comment on above: Order Comment: Speci men Type: BLOOD SPECIMENOrdering Facility: [facility] Address: [address] [place] [address] Performed By: #### 5 7021-8 ####[facility] LABCLIA [id number] [place] [address] Erythrocyte distribution width (RBC) [Ratio] 13.7 % Normal 11.5-15.0 [facility] Comment on above: Order Comment: Speci men Type: BLOOD SPECIMENOrdering Facility: [facility] Address: [address] [place] [address] Performed By: #### 5 7021-8 ####[facility] LABCLIA [id number] [place] [address] Hematocrit (Bld) [Volume fraction] 37.6 % Low 39.0-51.0 [facility] Comment on above: Order Comment: Speci men Type: BLOOD SPECIMENOrdering Facility: [facility] Address: [address] [place] [address] Performed By: #### 5 7021-8 ####[facility] LABCLIA [id number] [place] [address] Hemoglobin (Bld) [Mass/Vol] 13.0 g/dL Normal 13.0-17.0 [facility] Comment on above: Order Comment: Speci men Type: BLOOD SPECIMENOrdering Facility: [facility] Address: [address] [place] [address] Performed By: #### 5 7021-8 ####[facility] LABCLIA [id number] [place] [address] Immature granulocytes (Bld) [#/Vol] 0.03 10*3/uL Normal <0.10 [facility] Comment on above: Order Comment: Speci men Type: BLOOD SPECIMENOrdering Facility: [facility] Address: [address] [place] [address] Performed By: #### 5 7021-8 ####[facility] LABCLIA [id number] [place] [address] Immature granulocytes/100 WBC (Bld) 0.5 % Normal [facility] Comment on above: Order Comment: Speci men Type: BLOOD SPECIMENOrdering Facility: [facility] Address: [address] [place] [address] Performed By: #### 5 7021-8 ####[facility] LABCLIA [id number] [place] [address] Lymphocytes (Bld) [#/Vol] 1.01 10*3/uL Normal 1.00-4.00 [facility] Comment on above: Order Comment: Speci men Type: BLOOD SPECIMENOrdering Facility: [facility] Address: [address] [place] [address] Performed By: #### 5 7021-8 ####[facility] LABCLIA [id number] [place] [address] Lymphocytes/100 WBC (Bld) 16.4 % Normal [facility] Comment on above: Order Comment: Speci men Type: BLOOD SPECIMENOrdering Facility: [facility] Address: [address] [place] [address] Performed By: #### 5 7021-8 ####[facility] LABCLIA [id number] [place] [address] MCH (RBC) [Entitic mass] 31.9 pg Normal 26.0-34.0 [facility] Comment on above: Order Comment: Speci men Type: BLOOD SPECIMENOrdering Facility: [facility] Address: [address] [place] [address] Performed By: #### 5 7021-8 ####[facility] LABCLIA [id number] [place] [address] MCHC (RBC) [Mass/Vol] 34.6 g/dL Normal 30.5-36.0 [facility] Comment on above: Order Comment: Speci men Type: BLOOD SPECIMENOrdering Facility: [facility] Address: [address] [place] [address] Performed By: #### 5 7021-8 ####[facility] LABCLIA [id number] [place] [address] MCV (RBC) [Entitic vol] 92.2 fL Normal 80.0-100.0 [facility] Comment on above: Order Comment: Speci men Type: BLOOD SPECIMENOrdering Facility: [facility] Address: [address] [place] [address] Performed By: #### 5 7021-8 ####[facility] LABCLIA [id number] [place] [address] Monocytes (Bld) [#/Vol] 0.86 10*3/uL Normal <0.87 [facility] Comment on above: Order Comment: Speci men Type: BLOOD SPECIMENOrdering Facility: [facility] Address: [address] [place] [address] Performed By: #### 5 7021-8 ####[facility] LABCLIA [id number] [place] [address] Monocytes/100 WBC (Bld) 14.0 % Normal [facility] Comment on above: Order Comment: Speci men Type: BLOOD SPECIMENOrdering Facility: [facility] Address: [address] [place] [address] Performed By: #### 5 7021-8 ####[facility] LABCLIA [id number] [place] [address] Neutrophils (Bld) [#/Vol] 4.09 10*3/uL Normal 1.45-7.50 [facility] Comment on above: Order Comment: Speci men Type: BLOOD SPECIMENOrdering Facility: [facility] Address: [address] [place] [address] Performed By: #### 5 7021-8 ####[facility] LABCLIA [id number] [place] [address] Neutrophils/100 WBC (Bld) 66.5 % Normal [facility] Comment on above: Order Comment: Speci men Type: BLOOD SPECIMENOrdering Facility: [facility] Address: [address] [place] [address] Performed By: #### 5 7021-8 ####[facility] LABCLIA [id number] [place] [address] Nucleated RBC (Bld) [#/Vol] 10*3/uL Normal <0.01 [facility] Comment on above: Order Comment: Speci men Type: BLOOD SPECIMENOrdering Facility: [facility] Address: [address] [place] [address] Performed By: #### 5 7021-8 ####[facility] LABCLIA [id number] [place] [address] Nucleated RBC/100 WBC (Bld) [Ratio] 0.0 /100 WBC Normal [facility] Comment on above: Order Comment: Speci men Type: BLOOD SPECIMENOrdering Facility: [facility] Address: [address] [place] [address] Performed By: #### 5 7021-8 ####[facility] LABCLIA [id number] [place] [address] Platelet mean volume (Bld) [Entitic vol] 11.4 fL Normal 9.0-12.7 [facility] Comment on above: Order Comment: Speci men Type: BLOOD SPECIMENOrdering Facility: [facility] Address: [address] [place] [address] Performed By: #### 5 7021-8 ####[facility] LABCLIA [id number] [place] [address] Platelets (Bld) [#/Vol] 188 10*3/uL Normal 150-400 [facility] Comment on above: Order Comment: Speci men Type: BLOOD SPECIMENOrdering Facility: [facility] Address: [address] [place] [address] Performed By: #### 5 7021-8 ####[facility] LABIA [id number] [place] [address] RBC (Bld) [#/Vol] 4.08 10*6/uL Low 4.20-6.00 [facility] Comment on above: Order Comment: Speci men Type: BLOOD SPECIMENOrdering Facility: [facility] Address: [address] [place] [address] Performed By: #### 5 7021-8 ####[facility] LABIA [id number] [place] [address] WBC (Bld) [#/Vol] 6.15 10*3/uL Normal 3.70-11.00 [facility] Comment on above: Order Comment: Speci men Type: BLOOD SPECIMENOrdering Facility: [facility] Address: [address] [place] [address] Performed By: #### 5 7021-8 ####[facility] LABIA [id number] [place] [address] CNOVSPon 05-13-2023 CNOVSP Normal [facility] CNPNon 05-13-2023 CNPN Normal [facility] Comprehensive metabolic 2000 panelon 05-13-2023 Albumin [Mass/Vol] 4.5 g/dL Normal 3.9-4.9 [facility] Comment on above: Order Comment: Speci men Type: BLOOD SPECIMENOrdering Facility: [facility] Address: [address] [place] [address] Performed By: #### 2 4323-8 ####[facility] LABCLIA [id number] [place] [address] ALP [Catalytic activity/Vol] 68 U/L Normal 38-113 [facility] Comment on above: Order Comment: Speci men Type: BLOOD SPECIMENOrdering Facility: [facility] Address: [address] [place] [address] Performed By: #### 2 4323-8 ####[facility] LABCLIA [id number] [place] [address] ALT [Catalytic activity/Vol] 24 U/L Normal 10-54 [facility] Comment on above: Order Comment: Speci men Type: BLOOD SPECIMENOrdering Facility: [facility] Address: [address] [place] [address] Performed By: #### 2 4323-8 ####[facility] LABCLIA [id number] [place] [address] Anion gap [Moles/Vol] 7 mmol/L Low 9-18 [facility] Comment on above: Order Comment: Speci men Type: BLOOD SPECIMENOrdering Facility: [facility] Address: [address] [place] [address] Performed By: #### 2 4323-8 ####[facility] LABCLIA [id number] [place] [address] AST [Catalytic activity/Vol] 24 U/L Normal 14-40 [facility] Comment on above: Order Comment: Speci men Type: BLOOD SPECIMENOrdering Facility: [facility] Address: [address] [place] [address] Performed By: #### 2 4323-8 ####[facility] LABCLIA [id number] [place] [address] Bilirubin [Mass/Vol] 0.4 mg/dL Normal 0.2-1.3 [facility] Comment on above: Order Comment: Speci men Type: BLOOD SPECIMENOrdering Facility: [facility] Address: [address] [place] [address] Performed By: #### 2 4323-8 ####[facility] LABCLIA [id number] [place] [address] Calcium [Mass/Vol] 9.8 mg/dL Normal 8.5-10.2 [facility] Comment on above: Order Comment: Speci men Type: BLOOD SPECIMENOrdering Facility: [facility] Address: [address] [place] [address] Performed By: #### 2 4323-8 ####[facility] LABCLIA [id number] [place] [address] Chloride [Moles/Vol] 102 mmol/L Normal 97-105 [facility] Comment on above: Order Comment: Speci men Type: BLOOD SPECIMENOrdering Facility: [facility] Address: [address] [place] [address] Performed By: #### 2 4323-8 ####[facility] LABCLIA [id number] [place] [address] CO2 [Moles/Vol] 28 mmol/L Normal 22-30 [facility] Comment on above: Order Comment: Speci men Type: BLOOD SPECIMENOrdering Facility: [facility] Address: [address] [place] [address] Performed By: #### 2 4323-8 ####[facility] LABCLIA [id number] [place] [address] Creatinine [Mass/Vol] 1.06 mg/dL Normal 0.73-1.22 [facility] Comment on above: Order Comment: Speci men Type: BLOOD SPECIMENOrdering Facility: [facility] Address: [address] [place] [address] Performed By: #### 2 4323-8 ####[facility] LABCLIA [id number] [place] [address] Creatinine and Glomerular filtration rate.predicted panel (S/P/Bld) 77 mL/min/1.73m??? Normal >=60 [facility] Comment on above: Order Comment: Speci men Type: BLOOD SPECIMENOrdering Facility: [facility] Address: [address] [place] [address] Result Comment: Landy mated Glomerular Filtration Rate [...] actual GFR. Performed By: #### 2 4323-8 ####[facility] LABCLIA [id number] [place] [address] Glucose [Mass/Vol] 150 mg/dL High 74-99 [facility] Comment on above: Order Comment: Speci shalom Type: BLOOD SPECIMENOrdering Facility: [facility] Address: [address] [place] [address] Result Comment: The [place] [employer] (ADA) provides guidance for cutoff [...] Standards of Medical Care in Diabetes 2016, [place] [employer]. Diabetes Care. 2016.39(Suppl 1). Performed By: #### 2 4323-8 ####[facility] LABCLIA [id number] [place] [address] Potassium [Moles/Vol] 3.4 mmol/L Low 3.7-5.1 [facility] Comment on above: Order Comment: Speci men Type: BLOOD SPECIMENOrdering Facility: [facility] Address: [address] [place] [address] Performed By: #### 2 4323-8 ####[facility] LABCLIA [id number] [place] [address] Protein [Mass/Vol] 7.5 g/dL Normal 6.3-8.0 [facility] Comment on above: Order Comment: Speci men Type: BLOOD SPECIMENOrdering Facility: [facility] Address: [address] [place] [address] Performed By: #### 2 4323-8 ####[facility] LABCLIA [id number] [place] [address] Sodium [Moles/Vol] 137 mmol/L Normal 136-144 [facility] Comment on above: Order Comment: Speci men Type: BLOOD SPECIMENOrdering Facility: [facility] Address: [address] [place] [address] Performed By: #### 2 4323-8 ####[facility] LABCLIA [id number] [place] [address] Urea nitrogen [Mass/Vol] 30 mg/dL High 9-24 [facility] Comment on above: Order Comment: Speci men Type: BLOOD SPECIMENOrdering Facility: [facility] Address: [address] [place] [address] Performed By: #### 2 4323-8 ####[facility] LABCLIA [id number] [place] [address] T4/FTI/T4Uon 05-13-2023 FTI 6.6 ug/dL Normal 5.3-10.8 [facility] Comment on above: Order Comment: Speci men Type: BLOOD SPECIMENOrdering Facility: [facility] Address: [address] [place] [address] Performed By: #### T 4FALEJANDRO, 3016-3 ####[facility] LABIA [id number] [place] [address] [place] T4 [Mass/Vol] 6.3 ug/dL Normal 5.5-10.2 [facility] Comment on above: Order Comment: Speci men Type: BLOOD SPECIMENOrdering Facility: [facility] Address: [address] [place] [address] Performed By: #### Lexi 4FALEJANDRO, 6-3 ####[facility] [id number] [place] [address] [place] T4 uptake [Mass/Vol] 0.96 Normal 0.91-1.19 [facility] Comment on above: Order Comment: Speci men Type: BLOOD SPECIMENOrdering Facility: [facility] Address: [address] [place] [address] Performed By: #### Lexi 4FALEJANDRO, 6-3 ####[facility] [id number] [place] [address] [place] TSH SerPl-aCncon 05-13-2023 TSH Qn 47.800 m[IU]/L High 0.270-4.200 [facility] Comment on above: Order Comment: Speci men Type: BLOOD SPECIMENOrdering Facility: [facility] Address: [address] [place] [address] Performed By: #### Lexi CHAN, 3015-3 ####[facility] [id number] [place] [id number] [place] GLUCOSE, BLOOD (POC)on 05-12 Glucose [Mass/Vol] 85 mg/dL 74 - 99 mg/dL [facility] Comment on above: Location:[facility], [address] [place] [address] Dr. [place], [place], [address] The Accu-Chek Inform II glucose meter has [...] blood gas instrument) in the above situations. [facility] NM PET/CT SKULL-THIGH SUBQon 05-12-2023 NM PET/CT SKULL-THIGH SUBQ Normal [facility] PET+CT Guidance for localiza tion of tumor [...] any questions regarding this interpretation, please call [phone]. If you are unable to reach us at the number above, please feel free to contact [facility] eRadiology at [phone]. DIVISION OF RADIOLOGY * * *Final Report* [...] Yes COMPARISON: PET/CT 01/17/2023 CORRELATION: None. RESULT: Candy Attendant (topogram) images: No additional findings. - Mediastinum [...] destructive osseous lesions. DIVISION OF RADIOLOGY Provider, [facility] Qulin - 05/12/2023 * * *Final Report* * [...] Yes COMPARISON: PET/CT 01/17/2023 CORRELATION: None. RESULT: Candy Attendant (topogram) images: No additional findings. - Mediastinum [...] any questions r (more content not included)... [facility] Radiology Study observation (narrative) [facility] PET+CT Guidance for localiza tion of tumor of Skull base to mid-thigh-- W [id number]-[id number] IVOrdered By: Ccf Provider on 05-12-2023 [facility] CNPNon 05-08-2023 CNPN Normal [facility] CNPNon 04-23-2023 CNPN Normal [facility] CBC W Auto Differential pane l (Bld)on 04-22-2023 Basophils (Bld) [#/Vol] 0.04 10*3/uL Normal <0.11 [facility] Comment on above: Order Comment: Speci men Type: BLOOD SPECIMENOrdering Facility: [facility] Address: [address] [place] [address] Performed By: #### 5 7021-8 ####[facility] LABCLIA [id number] [place] [address] Basophils/100 WBC (Bld) 0.8 % Normal [facility] Comment on above: Order Comment: Speci men Type: BLOOD SPECIMENOrdering Facility: [facility] Address: [address] [place] [address] Performed By: #### 5 7021-8 ####[facility] LABCLIA [id number] [place] [address] Differential cell count method Nom (Bld) Auto Normal [facility] Comment on above: Order Comment: Speci men Type: BLOOD SPECIMENOrdering Facility: [facility] Address: [address] [address] Performed By: #### 5 7021-8 ####[facility] LABCLIA [id number] [place] [address] Eosinophils (Bld) [#/Vol] 0.07 10*3/uL Normal <0.46 [facility] Comment on above: Order Comment: Speci men Type: BLOOD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 Angulo on 01-03-2023 Chloride [Moles/Vol] 104 mmol/L 98-107 [facility] Creatinine [Mass/volume] in Serum or PlasmaOrdered By: Sapna Angulo on 01-03-2023 Creatinine [Mass/Vol] 0.89 mg/dL 0.70-1.30 [facility] Eosinophils Auto (Bld) [#/Vo l]Ordered By: Sapna Angulo on 01-03-2023 Eosinophils (Bld) [#/Vol] 0.1 10*3/uL 0.0-0.45 [facility] Eosinophils/100 WBC Auto (Bl d)Ordered By: Sapna Angulo on 01-03-2023 Eosinophils/100 WBC (Bld) 1.4 % . [facility] Erythrocyte distribution wid th Auto (RBC) [Ratio]Ordered By: Sapna Angulo on 01-03-2023 Erythrocyte distribution width (RBC) [Ratio] 16.7 % 12.0-14.8 [facility] Globulin Calc (S) [Mass/Vol] Ordered By: Sapna Angulo on 01-03-2023 Globulin (S) [Mass/Vol] 3.2 g/dL [facility] Glucose [Mass/volume] in Ser um or PlasmaOrdered By: Sapna Angulo on 01-03-2023 Glucose [Mass/Vol] 96 mg/dL 70-100 [facility] Comment on above: ADA recommended refe rence rangeRandom Glucose Reference Range is dependent on time and content of last meal. Glucose of more than 200 mg/dL in a nonstressed, ambulatory subject supports the diagnosis of Diabetes Mellitus. Hematocrit Auto (Bld) [Volum e fraction]Ordered By: Sapna Angulo on 01-03-2023 Hematocrit (Bld) [Volume fraction] 39.0 % 38.8-50.0 [facility] Hemoglobin [Mass/volume] in BloodOrdered By: Sapna Angulo on 01-03-2023 Hemoglobin (Bld) [Mass/Vol] 13.2 g/dL 13.0-17.0 [facility] Laboratory - CoagulationOrde red By: Sapna Angulo on 01-03-2023 PT Coag (PPP) [Time] 12.1 s 9.0-12.9 [facility] Leukocytes [#/volume] correc nani for nucleated erythrocytes in Blood by Automated counOrdered By: Sapna Angulo on 01-03-2023 WBC corrected for nucl RBC Auto (Bld) [#/Vol] 5.6 10*3/uL 4.1-10.5 [facility] Lymphocytes Auto (Bld) [#/Vo l]Ordered By: Sapna Angulo on 01-03-2023 Lymphocytes (Bld) [#/Vol] 0.9 10*3/uL 1.00-4.8 [facility] Lymphocytes/100 WBC Auto (Bl d)Ordered By: Sapna Angulo on 01-03-2023 Lymphocytes/100 WBC (Bld) 16.1 % . [facility] MCH Auto (RBC) [Entitic mass ]Ordered By: Sapna Angulo on 01-03-2023 MCH (RBC) [Entitic mass] 30.0 pg 27.5-35.2 [facility] MCHC Auto (RBC) [Mass/Vol]Or dered By: Sapna Angulo on 01-03-2023 MCHC (RBC) [Mass/Vol] 33.9 g/dL 32.5-35.6 [facility] MCV Auto (RBC) [Entitic vol] Ordered By: Sapna Angulo on 01-03-2023 MCV (RBC) [Entitic vol] 88.4 fL 83.5-101 [facility] Monocyte distribution width [Entitic volume] in Blood by AutomatedOrdered By: Sapna Angulo on 01-03-2023 Monocyte distribution width Auto (Bld) [Entitic vol] 20.82 % 0.00-20.00 [facility] Comment on above: For adults in ED, MD W > 20.0 may be associated with a higher risk of sepsis during the first 12 hrs of hospital admission Monocytes Auto (Bld) [#/Vol] Ordered By: Sapna Angulo on 01-03-2023 Monocytes (Bld) [#/Vol] 0.7 10*3/uL 0.0-0.8 [facility] Monocytes/100 WBC Auto (Bld) Ordered By: Sapna Angulo on 01-03-2023 Monocytes/100 WBC (Bld) 11.8 % . [facility] Natriuretic peptide B [Mass/ Vol]Ordered By: Sapna Angulo on 01-03-2023 Natriuretic peptide B (Bld) [Mass/Vol] 93.0 pg/mL 5-100 [facility] Neutrophils Auto (Bld) [#/Vo l]Ordered By: Sapna Angulo on 01-03-2023 Neutrophils (Bld) [#/Vol] 3.9 10*3/uL 1.8-7.7 [facility] Neutrophils/100 WBC Auto (Bl d)Ordered By: Sapna Angulo on 01-03-2023 Neutrophils/100 WBC (Bld) 70.3 % . [facility] No Panel InformationOrdered By: Sapna Angulo on 01-03-2023 D-Dimer Quantitative (PE/DVT) 374 ng/mL 0-243 [facility] Comment on above: The reference [...] conditions. Estimated GFR (CKD-EPI) > 60.0 mL/Min [facility] Creatinine Clearance (Chem 68.76 [facility] Nucleated erythrocytes [Pres ence] in Blood by Automated countOrdered By: Sapna Angulo on 01-03-2023 Nucleated RBC Auto Ql (Bld) 0.2 /100{WBC} 0-0.5 [facility] Platelet mean volume Auto (B ld) [Entitic vol]Ordered By: Sapna Angulo on 01-03-2023 Platelet mean volume (Bld) [Entitic vol] 9.6 fL 6.6-10.1 [facility] Platelet poor plasma interna tional normalized ratio (INR) by coagulation assay (relatOrdered By: Sapna Anguol on 01-03-2023 INR Coag (PPP) [Relative time] 1.0 {INR} [facility] Comment on above: INR Therapeutic [...] 01-03-2023 Platelets (Bld) [#/Vol] 148 10*3/uL 150-450 [facility] Potassium [Moles/volume] in Serum or PlasmaOrdered By: Sapna Angulo on 01-03-2023 Potassium [Moles/Vol] 4.0 mmol/L 3.5-5.1 [facility] Protein [Mass/volume] in Ser um or PlasmaOrdered By: Sapna Angulo on 01-03-2023 Protein [Mass/Vol] 7.4 g/dL 6.4-8.9 [facility] RBC Auto (Bld) [#/Vol]Ordere d By: Sapna Angulo on 01-03-2023 RBC (Bld) [#/Vol] 4.41 10*6/uL 3.90-5.60 [facility] Serum or plasma albumin/glob ulin mass ratioOrdered By: Sapna Angulo on 01-03-2023 Albumin/Globulin [Mass ratio] 1.3 {ratio} [facility] Serum or plasma anion gap de terminationOrdered By: Sapna Angulo on 01-03-2023 Anion gap [Moles/Vol] 11.2 mmol/L 6.0-15.0 [facility] Serum or plasma non-glucuron idated bilirubin measurement (mass/volume)Ordered By: Sapna Angulo on 01-03-2023 Bilirubin.indirect [Mass/Vol] 0.7 mg/dL [facility] Sodium [Moles/volume] in Ser um or PlasmaOrdered By: Sapna Angulo on 01-03-2023 Sodium [Moles/Vol] 138 mmol/L 136-145 [facility] Troponin I.cardiac [Mass/vol ume] in Serum or Plasma by Detection limit <= 0.01 ng/Ordered By: Sapna Angulo on 01-03-2023 Troponin I.cardiac DL <= 0.01 ng/mL [Mass/Vol] 11.0 pg/mL 0.0-20.0 [facility] Urea nitrogen [Mass/volume] in Serum or PlasmaOrdered By: Sapna Angulo on 01-03-2023 Urea nitrogen [Mass/Vol] 24 mg/dL 7-25 [facility] WBC Auto (Bld) [#/Vol]Ordere d By: Sapna Angulo on 01-03-2023 WBC (Bld) [#/Vol] 5.6 10*3/uL 4.1-10.5 [facility] Comprehensive metabolic 2000 panelon 11-25-2022 Albumin [Mass/Vol] 3.9 g/dL 3.9 - 4.9 g/dL [facility] ALP [Catalytic activity/Vol] 58 U/L 38 - 113 U/L [facility] ALT [Catalytic activity/Vol] 248 U/L High 10 - 54 U/L [facility] Anion gap [Moles/Vol] 8 mmol/L Low 9 - 18 mmol/L [facility] AST [Catalytic activity/Vol] 142 U/L High 14 - 40 U/L [facility] Bilirubin [Mass/Vol] 1.1 mg/dL 0.2 - 1.3 mg/dL [facility] Calcium [Mass/Vol] 9.7 mg/dL 8.5 - 10.2 mg/dL [facility] Chloride [Moles/Vol] 96 mmol/L Low 97 - 105 mmol/L [facility] CO2 [Moles/Vol] 26 mmol/L 22 - 30 mmol/L [facility] Creatinine [Mass/Vol] 0.97 mg/dL 0.73 - 1.22 mg/dL [facility] Estimated Glomerular Filtration Rate 87 mL/min/1.73m >=60 mL/min/1.73m [facility] Glucose [Mass/Vol] 159 mg/dL High 74 - 99 mg/dL [facility] Potassium [Moles/Vol] 3.6 mmol/L Low 3.7 - 5.1 mmol/L [facility] Protein [Mass/Vol] 7.5 g/dL 6.3 - 8.0 g/dL [facility] Sodium [Moles/Vol] 130 mmol/L Low 136 - 144 mmol/L [facility] Urea nitrogen [Mass/Vol] 15 mg/dL 9 - 24 mg/dL [facility] LD LACTATE DEHYDROon 11-11- 023 LDH [Catalytic activity/Vol] 291 U/L High 135 - 225 U/L [facility] CBC W Auto Differential pane l (Bld)on 10-31-2022 Basophils (Bld) [#/Vol] <0.11 k/uL [facility] Basophils/100 WBC (Bld) 0.4 % [facility] Differential cell count method Nom (Bld) Auto [facility] Eosinophils (Bld) [#/Vol] 0.17 10*3/uL <0.46 k/uL [facility] Eosinophils/100 WBC (Bld) 3.7 % [facility] Erythrocyte distribution width (RBC) [Ratio] 14.7 % 11.5 - 15.0 % [facility] Hematocrit (Bld) [Volume fraction] 32.0 % Low 39.0 - 51.0 % [facility] Hemoglobin (Bld) [Mass/Vol] 10.8 g/dL Low 13.0 - 17.0 g/dL [facility] Immature granulocytes (Bld) [#/Vol] <0.10 k/uL [facility] Immature granulocytes/100 WBC (Bld) 0.2 % [facility] Lymphocytes (Bld) [#/Vol] 0.59 10*3/uL Low 1.00 - 4.00 k/uL [facility] Lymphocytes/100 WBC (Bld) 12.9 % [facility] MCH (RBC) [Entitic mass] 30.3 pg 26.0 - 34.0 pg [facility] MCHC (RBC) [Mass/Vol] 33.8 g/dL 30.5 - 36.0 g/dL [facility] MCV (RBC) [Entitic vol] 89.6 fL 80.0 - 100.0 fL [facility] Monocytes (Bld) [#/Vol] 0.87 10*3/uL High <0.87 k/uL [facility] Monocytes/100 WBC (Bld) 19.0 % [facility] Neutrophils (Bld) [#/Vol] 2.92 10*3/uL 1.45 - 7.50 k/uL [facility] Neutrophils/100 WBC (Bld) 63.8 % [facility] Nucleated RBC (Bld) [#/Vol] <0.01 k/uL [facility] Nucleated RBC/100 WBC (Bld) [Ratio] 0.0 /100 WBC [facility] Platelet mean volume (Bld) [Entitic vol] 10.2 fL 9.0 - 12.7 fL [facility] Platelets (Bld) [#/Vol] 247 10*3/uL 150 - 400 k/uL [facility] RBC (Bld) [#/Vol] 3.57 10*6/uL Low 4.20 - 6.00 m/uL [facility] WBC (Bld) [#/Vol] 4.58 10*3/uL 3.70 - 11.00 k/u L [facility] Comprehensive metabolic 2000 panelon 10-31-2022 Albumin [Mass/Vol] 4.1 g/dL 3.9 - 4.9 g/dL Cl [facility] ALP [Catalytic activity/Vol] 54 U/L 38 - 113 U/L [facility] ALT [Catalytic activity/Vol] 17 U/L 10 - 54 U/L [facility] Anion gap [Moles/Vol] 8 mmol/L Low 9 - 18 mmol/L [facility] AST [Catalytic activity/Vol] 21 U/L 14 - 40 U/L [facility] Bilirubin [Mass/Vol] 0.7 mg/dL 0.2 - 1.3 mg/dL [facility] Calcium [Mass/Vol] 9.4 mg/dL 8.5 - 10.2 mg/dL [facility] Chloride [Moles/Vol] 100 mmol/L 97 - 105 mmol/L [facility] CO2 [Moles/Vol] 25 mmol/L 22 - 30 mmol/L [facility] Creatinine [Mass/Vol] 1.08 mg/dL 0.73 - 1.22 mg/dL [facility] Estimated Glomerular Filtration Rate 76 mL/min/1.73m >=60 mL/min/1.73m [facility] Glucose [Mass/Vol] 97 mg/dL 74 - 99 mg/dL [facility] Potassium [Moles/Vol] 3.7 mmol/L 3.7 - 5.1 mmol/L [facility] Protein [Mass/Vol] 7.1 g/dL 6.3 - 8.0 g/dL [facility] Sodium [Moles/Vol] 133 mmol/L Low 136 - 144 mmol/L [facility] Urea nitrogen [Mass/Vol] 20 mg/dL 9 - 24 mg/dL [facility] Orders Onlyon 10-23-2022 Orders Only [id number] Cristal Gu 1955 M Date Provider Department Center 10/23/2022 NildaMichellKassieILANACHAYITO SANTIZO [facility] No family history on file Normal [facility] CBC W Auto Differential pane l (Bld)on 10-21-2022 Basophils (Bld) [#/Vol] 0.03 10*3/uL <0.11 k/uL [facility] Basophils/100 WBC (Bld) 0.5 % [facility] Differential cell count method Nom (Bld) Auto [facility] Eosinophils (Bld) [#/Vol] 0.19 10*3/uL <0.46 k/uL [facility] Eosinophils/100 WBC (Bld) 2.9 % [facility] Erythrocyte distribution width (RBC) [Ratio] 15.0 % 11.5 - 15.0 % [facility] Hematocrit (Bld) [Volume fraction] 39.7 % 39.0 - 51.0 % [facility] Hemoglobin (Bld) [Mass/Vol] 13.3 g/dL 13.0 - 17.0 g/dL [facility] Immature granulocytes (Bld) [#/Vol] 0.05 10*3/uL <0.10 k/uL [facility] Immature granulocytes/100 WBC (Bld) 0.8 % [facility] Lymphocytes (Bld) [#/Vol] 0.95 10*3/uL Low 1.00 - 4.00 k/uL [facility] Lymphocytes/100 WBC (Bld) 14.6 % [facility] MCH (RBC) [Entitic mass] 30.6 pg 26.0 - 34.0 pg [facility] MCHC (RBC) [Mass/Vol] 33.5 g/dL 30.5 - 36.0 g/dL [facility] MCV (RBC) [Entitic vol] 91.3 fL 80.0 - 100.[address] [facility] Monocytes (Bld) [#/Vol] 0.62 10*3/uL <0.87 k/uL [facility] Monocytes/100 WBC (Bld) 9.5 % [facility] Neutrophils (Bld) [#/Vol] 4.66 10*3/uL 1.45 - 7.50 k/uL [facility] Neutrophils/100 WBC (Bld) 71.7 % [facility] Nucleated RBC (Bld) [#/Vol] <0.01 k/uL [facility] Nucleated RBC/100 WBC (Bld) [Ratio] 0.0 /100 WBC [facility] Platelet mean volume (Bld) [Entitic vol] 10.1 fL 9.0 - 12.7 fL [facility] Platelets (Bld) [#/Vol] 237 10*3/uL 150 - 400 k/uL [facility] RBC (Bld) [#/Vol] 4.35 10*6/uL 4.20 - 6.00 m/uL [facility] WBC (Bld) [#/Vol] 6.50 10*3/uL 3.70 - 11.00 k/u L [facility] Comprehensive metabolic 2000 panelon 10-21-2022 Albumin [Mass/Vol] 4.4 g/dL 3.9 - 4.9 g/dL [facility] ALP [Catalytic activity/Vol] 55 U/L 38 - 113 U/L [facility] ALT [Catalytic activity/Vol] 22 U/L 10 - 54 U/L [facility] Anion gap [Moles/Vol] 10 mmol/L 9 - 18 mmol/L [facility] AST [Catalytic activity/Vol] 20 U/L 14 - 40 U/L [facility] Bilirubin [Mass/Vol] 0.7 mg/dL 0.2 - 1.3 mg/dL [facility] Calcium [Mass/Vol] 10.2 mg/dL 8.5 - 10.2 mg/dL [facility] Chloride [Moles/Vol] 98 mmol/L 97 - 105 mmol/L [facility] CO2 [Moles/Vol] 27 mmol/L 22 - 30 mmol/L [facility] Creatinine [Mass/Vol] 1.04 mg/dL 0.73 - 1.22 mg/dL [facility] Estimated Glomerular Filtration Rate 80 mL/min/1.73m >=60 mL/min/1.73m [facility] Glucose [Mass/Vol] 145 mg/dL High 74 - 99 mg/dL [facility] Potassium [Moles/Vol] 4.2 mmol/L 3.7 - 5.1 mmol/L [facility] Protein [Mass/Vol] 7.8 g/dL 6.3 - 8.0 g/dL [facility] Sodium [Moles/Vol] 135 mmol/L Low 136 - 144 mmol/L [facility] Urea nitrogen [Mass/Vol] 21 mg/dL 9 - 24 mg/dL [facility] LD LACTATE DEHYDROon 023 LDH [Catalytic activity/Vol] 183 U/L 135 - 225 U/L [facility] GLUCOSE, BLOOD (POC)on 10-10 Glucose [Mass/Vol] 98 mg/dL 74 - 99 mg/dL [facility] Comment on above: Location:[facility], [address] [place] [address] , [place], [place], [address] The Accu-Chek Inform II glucose meter has [...] blood gas instrument) in the above situations. [facility] PET+CT Guidance for localiza tion [...] any questions regarding this interpretation, please call [phone]. If you are unable to reach us at the number above, please feel free to contact [facility] eRadiology at [phone]. DIVISION OF RADIOLOGY * * *Final Report* [...] SKELETON: There are no hypermetabolic osseous lesions. Candy Attendant (topogram) images:No additional findings. --- DIVISION OF RADIOLOGY Provider, [facility] - 10/10/2022 * * *Final Report* * [...] SKELETON: There are no hypermetabolic osseous lesions. Candy Attendant (topogram) images:No additional findings. --- IMPRESSION IMPRESSION: [...] any questions regarding this interpretation, please call [phone]. If you are unable to reach us at the number above, please feel free to contact [facility] eRadiology at [phone]. [facility] Radiology Study observation (narrative) [facility] PET+CT Guidance for localiza tion of tumor of Skull base to mid-thigh-- W [id number] IVOrdered By: Ccf Provider on 10-10-2022 [facility] XR CHEST 1 Von 10-10-2022 [...] LOVE ALBERTS Date: 2022-10-10 11:46 Normal [facility] LIPID PROFILEon 09-19-2022 CHOL-HDL RATIO NORM SEE BELOW Normal [facility] Comment on above: Result Comment: 3.3 - 4.4 LOW RISK 4.4 - 7.1 AVERAGE RISK 7.1 - 11.0 MODERATE RISK >11.0 HIGH RISK Performed By: #### L IPID #### [facility] [address] [address] [address] Usama Hobbs Cholesterol [Mass/Vol] 104 mg/dL Normal <=200 [facility] Comment on above: Performed By: #### L IPID #### [facility] [address] [place], [place] [address] Dr. Usama Hobbs Cholesterol in HDL [Mass/Vol] 36 mg/dL Critically low 40-60 [facility] Comment on above: Performed By: #### L IPID #### [facility] [address] [place], [place] [address] Dr. Usama Hobbs Cholesterol in LDL [Mass/Vol] 59.6 mg/dL Normal [facility] Comment on above: Performed By: #### L IPID #### [facility] [address] [address] [address] Usama Hobbs Cholesterol.total/Ch olesterol in HDL [Mass ratio] 2.9 {ratio} Normal [facility] Comment on above: Performed By: #### L IPID #### [facility] [address] [address] [address] Usama Hobbs HDL NORMAL > or = 60 mg/dl - LOW CARDIOVASCULAR RISK <40 mg/dl - HIGH CARDIOVASCULAR RISK Normal [facility] Comment on above: Performed By: #### L IPID #### [facility] [address] [address] [address] Usama Hobbs LDL CALC NORMAL SEE BELOW Normal [facility] Comment on above: Result Comment: <100 mg/dl OPTIMAL 100 - 129 mg/dl NEAR OR ABOVE OPTIMAL 130 - 159 mg/dl BORDERLINE HIGH 160 - 189 mg/dl HIGH >190 mg/dl VERY HIGH Performed By: #### L IPID #### [facility] [address] [place] [address] Dr. Usama Hobbs Triglyceride [Mass/Vol] 42 mg/dL Normal <=150 [facility] Comment on above: Performed By: #### L IPID #### [facility] [address] [place] [address] Dr. Usama Hobbs VLDL CALC 8.4 mg/dL Normal [facility] Comment on above: Performed By: #### L IPID #### [facility] [address] [place] [address] Abdomen and Pelvis [...] any questions regarding this interpretation, please call [phone]. If you are unable to reach us at the number above, please feel free [facility] [phone]. DIVISION OF RADIOLOGY * * *Final Report* * * DATE OF EXAM: Sep 17 2022 12:28PM [facility] 0530 - CT ABD/PEL W IVCON / [...] chest CT performed will be reported separately. Candy Attendant (topogram) images: No additional findings. DIVISION OF RADIOLOGY Provider, [facility] [place] - 09/18/2022 * * *Final Report* * * DATE OF EXAM: Sep 17 2022 12:28PM [facility] 0530 - CT ABD/PEL W IVCON / [...] chest CT performed will be reported separately. Candy Attendant (topogram) images: No additional findings. IMPRESSION IMPRESSION: [...] any questions regarding this interpretation, please call [phone]. If you are unable to reach us at the number above, please feel free to contact [facility] eRadiology at [phone]. [facility] CT Abdomen and Pelvis W cont rast IVOrdered By: Ccf Provider on 09-18-2022 [facility] CT Chest W contrast Anoop [...] any questions regarding this interpretation, please call [phone]. If you are unable to reach us at the number above, please feel free to contact [facility] eRadiology at [phone]. DIVISION OF RADIOLOGY * * *Final Report* * * DATE OF EXAM: Sep 17 2022 12:28PM [facility] 0539 - CT [...] was performed concurrently and is reported separately. Candy Attendant (topogram) images: No additional findings. DIVISION OF RADIOLOGY Provider, [facility] [place] - 09/18/2022 * * *Final Report* * * DATE OF EXAM: Sep 17 2022 12:28PM [facility] 0539 - CT [...] was performed concurrently and is reported separately. Candy Attendant (topogram) images: No additional findings. IMPRESSION IMPRESSION: [...] any questions regarding this interpretation, please call [phone]. If you are unable to reach us at the number above, please feel free to contact [facility] eRadiology at [phone]. [facility] Office Visiton 09-18-2022 Follow-up visit [id number] Sanjay Guruchi Maloney Sr. 1955 M Date Provider Department [facility] No family history on file Level of Service:57756 DC OFFICE/OUTPATIENT ESTABLISHED MOD MDM 30-39 MIN () Reason for Visit and Comments: Coronary Artery Disease [187] Peripheral Vascular Disease [458] Carotid Stenosis [Other] Hypertension [587567] Normal [facility] No Panel Informationon 09-17 Radiology Study observation (narrative) [facility] CBC W Auto Differential pane l (Bld)on 06-25-2022 Basophils (Bld) [#/Vol] <0.11 k/uL [facility] Basophils/100 WBC (Bld) 0.4 % [facility] Differential cell count method Nom (Bld) Auto [facility] Eosinophils (Bld) [#/Vol] 0.03 10*3/uL <0.46 k/uL [facility] Eosinophils/100 WBC (Bld) 0.6 % [facility] Erythrocyte distribution width (RBC) [Ratio] 14.1 % 11.5 - 15.0 % [facility] Hematocrit (Bld) [Volume fraction] 34.9 % Low 39.0 - 51.0 % [facility] Hemoglobin (Bld) [Mass/Vol] 12.5 g/dL Low 13.0 - 17.0 g/dL [facility] Immature granulocytes (Bld) [#/Vol] 0.03 10*3/uL <0.10 k/uL [facility] Immature granulocytes/100 WBC (Bld) 0.6 % [facility] Lymphocytes (Bld) [#/Vol] 0.75 10*3/uL Low 1.00 - 4.00 k/uL [facility] Lymphocytes/100 WBC (Bld) 14.0 % [facility] MCH (RBC) [Entitic mass] 32.9 pg 26.0 - 34.0 pg [facility] MCHC (RBC) [Mass/Vol] 35.8 g/dL 30.5 - 36.0 g/dL [facility] MCV (RBC) [Entitic vol] 91.8 fL 80.0 - 100.0 fL [facility] Monocytes (Bld) [#/Vol] 0.62 10*3/uL <0.87 k/uL [facility] Monocytes/100 WBC (Bld) 11.6 % [facility] Neutrophils (Bld) [#/Vol] 3.89 10*3/uL 1.45 - 7.50 k/uL [facility] Neutrophils/100 WBC (Bld) 72.8 % [facility] Nucleated RBC (Bld) [#/Vol] <0.01 k/uL [facility] Nucleated RBC/100 WBC (Bld) [Ratio] 0.0 /100 WBC [facility] Platelet mean volume (Bld) [Entitic vol] 9.8 fL 9.0 - 12.7 fL [facility] Platelets (Bld) [#/Vol] 208 10*3/uL 150 - 400 k/uL [facility] RBC (Bld) [#/Vol] 3.80 10*6/uL Low 4.20 - 6.00 m/uL [facility] WBC (Bld) [#/Vol] 5.34 10*3/uL 3.70 - 11.00 k/u L [facility] Comprehensive metabolic 2000 panelon 06-25-2022 Albumin [Mass/Vol] 4.4 g/dL 3.9 - 4.9 g/dL [facility] ALP [Catalytic activity/Vol] 72 U/L 38 - 113 U/L [facility] ALT [Catalytic activity/Vol] 27 U/L 10 - 54 U/L [facility] Anion gap [Moles/Vol] 12 mmol/L 9 - 18 mmol/L [facility] AST [Catalytic activity/Vol] 32 U/L 14 - 40 U/L [facility] Bilirubin [Mass/Vol] 0.7 mg/dL 0.2 - 1.3 mg/dL [facility] Calcium [Mass/Vol] 9.6 mg/dL 8.5 - 10.2 mg/dL [facility] Chloride [Moles/Vol] 97 mmol/L 97 - 105 mmol/L [facility] CO2 [Moles/Vol] 26 mmol/L 22 - 30 mmol/L [facility] Creatinine [Mass/Vol] 0.75 mg/dL 0.73 - 1.22 mg/dL [facility] Estimated Glomerular Filtration Rate 100 mL/min/1.73m >=60 mL/min/1.73m [facility] Glucose [Mass/Vol] 111 mg/dL High 74 - 99 mg/dL [facility] Potassium [Moles/Vol] 3.8 mmol/L 3.7 - 5.1 mmol/L [facility] Protein [Mass/Vol] 7.2 g/dL 6.3 - 8.0 g/dL [facility] Sodium [Moles/Vol] 135 mmol/L Low 136 - 144 mmol/L [facility] Urea nitrogen [Mass/Vol] 11 mg/dL 9 - 24 mg/dL [facility] CT CHEST W IVCONon [facility] CT Chest W contrast Anoop IMPRESSION: 1. Several indeterminate subcentimeter nodular opacities [...] any questions regarding this interpretation, please call [phone]. If you are unable to reach us at the number above, please feel free to contact [facility] eRadiology at [phone]. 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 Candy Attendant (topogram) images: No additional findings. 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 Candy Attendant (topogram) images: No additional findings. IMPRESSION IMPRESSION: [...] any questions regarding this interpretation, please call [phone]. If you are unable to reach us at the number above, please feel free to contact [facility] eRadiology at [phone]. [facility] Radiology Study observation (narrative) [facility] CT Chest W contrast IVOrdere d By: Ccf Provider on 06-14-2022 [facility] XR CHEST 2V FRONTAL/LATon [facility] XR Chest PA and Lateralon IMPRESSION: [...] any questions regarding this interpretation, please call [phone]. If you are unable to reach us at the number above, please feel free to contact [facility] eRadiology at [phone]. DIVISION OF RADIOLOGY * * *Final Report* [...] prior median sternotomy. DIVISION OF RADIOLOGY Provider, [facility] [place] - 06/11/2022 * * *Final Report* * [...] any questions regarding this interpretation, please call [phone]. If you are unable to reach us at the number above, please feel free to contact [facility] eRadiology at [phone]. [facility] Radiology Study observation (narrative) [facility] XR Chest PA and LateralOrder ed By: Ccf Provider on 06-11-2022 [facility] MRI LSPINE WO W CONon [...] by: BRANDON HENRY Date: 2022-05-23 19:51 Normal [facility] XR LSPINE MIN 4 VIEWSon 10- XR [...] changes of lumbar spine. Electronically authenticated by: TRUYD GUTIERREZ Date: 2022-05-01 17:27 Normal [facility] BONE SC WH BODYon [place] BONE [place] WH BODY EXAMINATION: [place] BONE [facility] BODY HISTORY: Primary malignant neoplasm of [...] by: BRANDON HENRY Date: 2022-04-12 21:44 Normal [facility] US CAROTID ART BILon US CAROTID ART [...] by: BRANDON HENRY Date: 2022-03-22 17:14 Normal [facility] PRBC LEUKOREDUCEDon 02-11-20 ABO and Rh group Nom (Bld) Cross Match Result Compatible Unit Blood Type A Pos Unit Number [id number] Status Information Transfused Product ID Red Blood Cells Product Code [id number] Cross Match Result Compatible Unit Blood Type A Pos Unit Number [id number] Status Information Transfused Product ID Red Blood Cells Product Code [id number] Normal [facility] Comment on above: Performed By: #### P SAD #### [facility] [address] [place] [address] Dr. Usama Hobbs ABO RH RETYPEon 02-08-2022 ABO and Rh group Nom (Bld) DONE Normal [facility] Comment on above: Performed By: #### R ETYPE #### [facility] [address] [place] [address] Dr. Usama Hobbs LD LACTATE DEHYDROon 022 LDH [Catalytic activity/Vol] 186 U/L 135 - 225 U/L [facility] TYPE AND SCREENon 02-08-2022 TYPE AND SCREEN Negative Normal [facility] Comment on above: Performed By: #### P SAD #### [facility] [address] [place] [address] Dr. Usama Hobbs HEMOGRAM AND PLATELon 2021 Hematocrit (Bld) [Volume fraction] 21.0 % Critically low 42.0-54.0 [facility] Comment on above: Result Comment: dr haider marcos transfusionT&S ordered Performed By: #### B RADIO INSTALLER, CMP #### [facility] [address] [place] [address] Dr. Usama Hobbs Hemoglobin (Bld) [Mass/Vol] 7.3 g/dL Critically low 14.0-18.0 [facility] Comment on above: Performed By: #### B RADIO INSTALLER, CMP #### [facility] [address] [place] [address] Dr. Usama Hobbs MCH (RBC) [Entitic mass] 31.7 pg Normal 25.9-34.0 [facility] Comment on above: Performed By: #### B RADIO INSTALLER, CMP #### [facility] [address] [place] [address] Dr. Usama Hobbs MCHC (RBC) [Mass/Vol] 34.8 g/dL Normal 29.9-35.2 [facility] Comment on above: Performed By: #### B RADIO INSTALLER, CMP #### [facility] [address] [place] [address] Dr. Usama Hobbs MCV (RBC) [Entitic vol] 91.3 fL Normal 80.0-94.0 [facility] Comment on above: Performed By: #### B RADIO INSTALLER, CMP #### [facility] [address] [place] [address] Dr. Usama Hobbs PLT 89 103/ul Critically low 150-450 [facility] Comment on above: Performed By: #### B RADIO INSTALLER, CMP #### [facility] [address] [place] [address] Dr. Usama Hobbs RBC 2.30 106/ul Critically low 4.70-6.10 [facility] Comment on above: Performed By: #### B RADIO INSTALLER, CMP #### [facility] [address] [place] [address] Dr. Usama Hobbs WBC 2.0 103/ul Critically low 4.0-11.0 [facility] Comment on above: Performed By: #### B RADIO INSTALLER, CMP #### [facility] [address] [place] [address] Dr. Usama Hobbs RETIC COUNTon 02-07-2022 Reticulocytes (Bld) [#/Vol] 0.23311 10*3/uL 0.018 - 0.100 M/uL [facility] Reticulocytes (Bld) [#/Vol]o n 02-07-2022 Reticulocytes/100 RBC (Bld) 2.3 % High 0.4 - 2.0 % [facility] XR CHEST 2V FRONTAL/LATon [facility] BNPon 12-07-2021 Natriuretic peptide B (Bld) [Mass/Vol] 140.0 pg/mL Normal <=900.0 [facility] Comment on above: Performed By: #### P SAD #### [facility] [address] [place] [address] Dr. Usama Hobbs CBC AUTO DIFFon 12-07-2021 BASO # 0.0 103/ul Normal 0.0-0.1 [facility] Comment on above: Performed By: #### B RADIO INSTALLER, CMP #### [facility] [address] [place] [address] Dr. Usama Hobbs Basophils/100 WBC (Bld) 0.2 % Normal 0.2-2.0 [facility] Comment on above: Performed By: #### B RADIO INSTALLER, CMP #### [facility] [address] [place] [address] Dr. Usama Hobbs EO # 0.1 103/ul Normal 0.0-0.7 [facility] Comment on above: Performed By: #### B RADIO INSTALLER, CMP #### [facility] [address] [place] [address] Dr. Usama Hobbs Eosinophils/100 WBC (Bld) 2.0 % Normal 0.9-7.0 [facility] Comment on above: Performed By: #### B RADIO INSTALLER, CMP #### [facility] [address] [place] [address] Dr. Usama Hobbs Erythrocyte distribution width (RBC) [Ratio] 12.9 % Normal 11.0-15.0 [facility] Comment on above: Performed By: #### B RADIO INSTALLER, CMP #### [facility] [address] [place] [address] Dr. Usama Hobbs Hematocrit (Bld) [Volume fraction] 32.6 % Critically low 42.0-54.0 [facility] Comment on above: Performed By: #### B RADIO INSTALLER, CMP #### [facility] [address] [place] [address] Dr. Usama Hobbs Hemoglobin (Bld) [Mass/Vol] 11.0 g/dL Critically low 14.0-18.0 [facility] Comment on above: Performed By: #### B RADIO INSTALLER, CMP #### [facility] [address] [place] [address] Dr. Usama Hobbs IG # 0.02 10e3/ul Normal 0.00-0.03 [facility] Comment on above: Performed By: #### B RADIO INSTALLER, CMP #### [facility] [address] [place] [address] Dr. Usama Hobbs IG % 0.4 % Normal 0.0-0.5 [facility] Comment on above: Performed By: #### B RADIO INSTALLER, CMP #### [facility] [address] [address] [address] Usama Hobbs LYMPH # 0.6 103/ul Critically low 1.2-3.8 [facility] Comment on above: Performed By: #### B RADIO INSTALLER, CMP #### [facility] [address] [address] [address] Usama Hobbs Lymphocytes/100 WBC (Bld) 12.9 % Critically low 20.5-60.0 [facility] Comment on above: Performed By: #### B RADIO INSTALLER, CMP #### [facility] [address] [address] [address] Usama Hobbs MANUAL DIFF REQ NO [facility] [place] Comment on above: Performed By: #### B RADIO INSTALLER, CMP #### [facility] [address] [place] [address] Dr. Usama Hobbs MCH (RBC) [Entitic mass] 30.1 pg Normal 25.9-34.0 [facility] [place] Comment on above: Performed By: #### B RADIO INSTALLER, CMP #### [facility] [address] [place] [address] Dr. Usama Hobbs MCHC (RBC) [Mass/Vol] 33.7 g/dL Normal 29.9-35.2 [facility] [place] Comment on above: Performed By: #### B RADIO INSTALLER, CMP #### [facility] [address] [place] [address] Dr. Usama Hobbs MCV (RBC) [Entitic vol] 89.1 fL Normal 80.0-94.0 [facility] [place] Comment on above: Performed By: #### B RADIO INSTALLER, CMP #### [facility] [address] [place] [address] Dr. Usama Hobbs MONO # 0.3 103/ul Normal 0.3-0.8 [facility] [place] Comment on above: Performed By: #### B RADIO INSTALLER, CMP #### [facility] [address] [place] [address] Dr. Usama Hobbs Monocytes/100 WBC (Bld) 5.1 % Normal 1.7-12.0 [facility] [place] Comment on above: Performed By: #### B RADIO INSTALLER, CMP #### [facility] [address] [address] [address] Usama Hobbs NEUT # 3.9 103/ul Normal 1.4-6.5 [facility] [place] Comment on above: Performed By: #### B RADIO INSTALLER, CMP #### [facility] [address] [address] [address] Usama Hobbs Neutrophils/100 WBC (Bld) 79.4 % Critically high 43.0-75.0 [facility] [place] Comment on above: Performed By: #### B RADIO INSTALLER, CMP #### [facility] [address] [place] [address] Dr. Usama Hobbs Platelet mean volume (Bld) [Entitic vol] 10.9 fL Normal 9.5-13.5 [facility] [place] Comment on above: Performed By: #### B RADIO INSTALLER, CMP #### [facility] [address] [place] [address] Dr. Usama Hobbs PLT 182 103/ul Normal 150-450 [facility] [place] Comment on above: Performed By: #### B RADIO INSTALLER, CMP #### [facility] [address] [place] [address] Dr. Usama Hobbs RBC 3.66 106/ul Critically low 4.70-6.10 [facility] Comment on above: Performed By: #### B RADIO INSTALLER, CMP #### [facility] [address] [address] [address] Usama Hobbs WBC 4.9 103/ul Normal 4.0-11.0 [facility] Comment on above: Performed By: #### B RADIO INSTALLER, CMP #### [facility] [address] [place] [address] Dr. Usama Hobbs TSHon 12-07-2021 TSH 1.474 uIU/mL Normal 0.358-3.740 [facility] [place] Comment on above: Performed By: #### P SAD #### [facility] [address] [place] [address] Dr. Usama Hobbs TSH RANGE SEE BELOW Normal [facility] Comment on above: Result Comment: <0.3 4 UIU/ml HYPERTHYROID 0.34-5.60 UIU/ml EUTHYROID >5.60 UIU/ml HYPOTHYROID Performed By: #### P SAD #### [facility] [address] [place] [address] Dr. Usama Hobbs URIC ACID BLOODon 11-26-2021 Urate [Mass/Vol] 7.0 mg/dL 4.0 - 8.1 mg/dL [facility] Basic metabolic 1999 panelon 11-21-2021 Anion gap [Moles/Vol] 12 mmol/L 9 - 18 mmol/L [facility] Calcium [Mass/Vol] 9.2 mg/dL 8.5 - 10.2 mg/dL [facility] Chloride [Moles/Vol] 102 mmol/L 97 - 105 mmol/L [facility] CO2 [Moles/Vol] 25 mmol/L 22 - 30 mmol/L [facility] Creatinine [Mass/Vol] 1.86 mg/dL High 0.73 - 1.22 mg/dL [facility] Estimated Glomerular Filtration Rate 40 mL/min/1.73m Low >=60 mL/min/1.73m [facility] Glucose [Mass/Vol] 87 mg/dL 74 - 99 mg/dL [facility] Potassium [Moles/Vol] 3.7 mmol/L 3.7 - 5.1 mmol/L [facility] Sodium [Moles/Vol] 139 mmol/L 136 - 144 mmol/L [facility] Urea nitrogen [Mass/Vol] 29 mg/dL High 9 - 24 mg/dL [facility] Basic metabolic 1999 panelon 11-19-2021 Anion gap [Moles/Vol] 12 mmol/L 9 - 18 mmol/L [facility] Calcium [Mass/Vol] 9.2 mg/dL 8.5 - 10.2 mg/dL [facility] Chloride [Moles/Vol] 104 mmol/L 97 - 105 mmol/L [facility] CO2 [Moles/Vol] 24 mmol/L 22 - 30 mmol/L [facility] Creatinine [Mass/Vol] 2.09 mg/dL High 0.73 - 1.22 mg/dL [facility] Estimated Glomerular Filtration Rate 35 mL/min/1.73m Low >=60 mL/min/1.73m [facility] Glucose [Mass/Vol] 79 mg/dL 74 - 99 mg/dL [facility] Potassium [Moles/Vol] 3.6 mmol/L Low 3.7 - 5.1 mmol/L [facility] Sodium [Moles/Vol] 140 mmol/L 136 - 144 mmol/L [facility] Urea nitrogen [Mass/Vol] 27 mg/dL High 9 - 24 mg/dL [facility] BNPon 11-18-2021 Natriuretic peptide B (Bld) [Mass/Vol] 2644.0 pg/mL Critically high <=900.0 [facility] [place] Comment on above: Performed By: #### B RADIO INSTALLER, CMP #### [facility] [address] [place] [address] Dr. Usama Hobbs CBC W MANUAL DIFFon 11-19-19 22 ATYPICAL LYMPH # Normal [facility] [place] Comment on above: Performed By: #### C LUIS #### [facility] [address] [place] [address] Dr. Usama Hobbs ATYPICAL LYMPH % Normal [facility] [place] Comment on above: Performed By: #### C LUIS #### [facility] [address] [place] [address] Dr. Usama Hobbs BAND # 0.0 103/ul Normal 0.0-0.3 [facility] Comment on above: Performed By: #### C LUIS #### [facility] [address] [place] [address] Dr. Usama Hobbs BAND % 2 % Normal 0-5 [facility] Comment on above: Performed By: #### C BCMAN #### [facility] [address] [place] [address] Dr. Usama Hobbs BASOM # 0.00 103/ul Normal 0.00-0.10 [facility] Comment on above: Performed By: #### C LUIS #### [facility] [address] [place] [address] Dr. Usama Hobbs BASOM % 0.0 % Critically low 0.2-2.0 [facility] Comment on above: Performed By: #### C LUIS #### [facility] [address] [place] [address] Dr. Usama Hobbs BLAST # Normal [facility] [place] Comment on above: Performed By: #### C LUIS #### [facility] [address] [place] [address] Dr. Usama Hobbs BLAST % Normal [facility] [place] Comment on above: Performed By: #### C LUIS #### [facility] [address] [place] [address] Dr. Usama Hobbs CORRECTED WBC Normal 4.0-11.0 [facility] [place] Comment on above: Performed By: #### C LUIS #### [facility] [address] [place] [address] Dr. Usama Hobbs EOS # 0.10 103/ul Normal 0.00-0.70 [facility] [place] Comment on above: Performed By: #### C LUIS #### [facility] [address] [place] [address] Dr. Usama Hobbs EOS% 5.0 % Normal 0.9-7.0 [facility] [place] Comment on above: Performed By: #### C LUIS #### [facility] [address] [place] [address] Dr. Usama Hobbs HCT 28.8 % Critically low 42.0-54.0 [facility] [place] Comment on above: Performed By: #### C LUIS #### [facility] [address] [place] [address] Dr. Usama Hobbs HGB 9.4 g/dl Critically low 14.0-18.0 [facility] [place] Comment on above: Performed By: #### C LUIS #### [facility] [address] [place] [address] Dr. Usama Hobbs LYMPHM # 0.71 103/ul Critically low 1.20-3.80 [facility] Comment on above: Performed By: #### C LUIS #### [facility] [address] [place] [address] Dr. Usama Hobbs LYMPHM% 34.0 % Normal 20.5-60.0 [facility] [place] Comment on above: Performed By: #### C LUIS #### [facility] [address] [place] [address] Dr. Usama Hobbs MCH 30.0 pg Normal 25.9-34.0 [facility] [place] Comment on above: Performed By: #### C LUIS #### [facility] [address] [place] [address] Dr. Usama Hobbs MCHC 32.6 g/dl Normal 29.9-35.2 [facility] Comment on above: Performed By: #### C LUIS #### [facility] [address] [place] [address] Dr. Usama Hobbs MCV 92.0 fL Normal 80.0-94.0 [facility] [place] Comment on above: Performed By: #### C LUIS #### [facility] [address] [place] [address] Dr. Usama Hobbs METAMYELOCYTE # Normal [facility] [place] Comment on above: Performed By: #### C LUIS #### [facility] [address] [place] [address] Dr. Usama Hobbs METAMYELOCYTE % Normal [facility] [place] Comment on above: Performed By: #### C LUIS #### [facility] [address] [place] [address] Dr. Usama Hobbs MONOM# 0.10 103/ul Critically low 0.30-0.80 [facility] [place] Comment on above: Performed By: #### C LUIS #### [facility] [address] [place] [address] Dr. Usama Hobbs MONOM% 5.0 % Normal 1.7-12.0 [facility] [place] Comment on above: Performed By: #### C LUIS #### [facility] [address] [place] [address] Dr. Usama Hobbs MPV 10.7 fL Normal 9.5-13.5 [facility] [place] Comment on above: Performed By: #### C LUIS #### [facility] [address] [place] [address] Dr. Usama Hobbs MYELOCYTE # Normal [facility] Comment on above: Performed By: #### C LUIS #### [facility] [address] [place] [address] Dr. Usama Hobbs MYELOCYTE % Normal [facility] [place] Comment on above: Performed By: #### C LUIS #### [facility] [address] [place] [address] Dr. Usama Hobbs NRBC Normal [facility] [place] Comment on above: Performed By: #### C LUIS #### [facility] [address] [place] [address] Dr. Usama Hobbs PLT 149 103/ul Critically low 150-450 [facility] [place] Comment on above: Performed By: #### C LUIS #### [facility] [address] [place] [address] Dr. Usama Hobbs RBC 3.13 106/ul Critically low 4.70-6.10 [facility] [place] Comment on above: Performed By: #### C LUIS #### [facility] [address] [place] [address] Dr. Usama Hobbs RDW 12.3 % Normal 11.0-15.0 [facility] [place] Comment on above: Performed By: #### C LUIS #### [facility] [address] [place] [address] Dr. Usama Hobbs SEG # 1.13 103/ul Critically low 1.40-6.50 [facility] [place] Comment on above: Performed By: #### C LUIS #### [facility] [address] [place] [address] Dr. Usama Hobbs SEG % 54.0 % Normal 43.0-75.0 [facility] [place] Comment on above: Performed By: #### C LUIS #### [facility] [address] [place] [address] Dr. Usama Hobbs WBC 2.1 103/ul Critically low 4.0-11.0 [facility] [place] Comment on above: Performed By: #### C LUIS #### [facility] [address] [place] [address] Dr. Usama Hobbs CULTURE SPUTUMon 11-18-2021 CULTURE SPUTUM Culture Observations: Normal respiratory callie also seen Isolate 1 Adwoa Albicans Growth of Normal [facility] Comment on above: Performed By: #### P SAD #### [facility] [address] [address] [address] Usama Hobbs PROF 14(COMP METB)on 022 Albumin [Mass/Vol] 2.8 g/dL Critically low 3.4-5.[address] [facility] Comment on above: Performed By: #### B RADIO INSTALLER, CMP #### [facility] [address] [place] [address] Dr. Usama Hobbs Albumin/Globulin [Mass ratio] 0.8 {ratio} Normal [facility] [place] Comment on above: Performed By: #### B RADIO INSTALLER, CMP #### [facility] [address] [place] [address] Dr. Usama Hobbs ALP [Catalytic activity/Vol] 56 U/L Normal 46-116 [facility] [place] Comment on above: Performed By: #### B RADIO INSTALLER, CMP #### [facility] [address] [place] [address] Dr. Usama Hobbs ALT [Catalytic activity/Vol] 22 U/L Normal 16-63 [facility] [place] Comment on above: Performed By: #### B RADIO INSTALLER, CMP #### [facility] [address] [place] [address] Dr. Usama Hobbs Anion gap [Moles/Vol] 14.5 mmol/L Normal [facility] [place] Comment on above: Performed By: #### B RADIO INSTALLER, CMP #### [facility] [address] [place] [address] Dr. Usama Hobbs AST [Catalytic activity/Vol] 17 U/L Normal 15-37 [facility] [place] Comment on above: Performed By: #### B RADIO INSTALLER, CMP #### [facility] [address] [place] [address] Dr. Usama Hobbs Bilirubin [Mass/Vol] 0.4 mg/dL Normal 0.2-1.0 [facility] [place] Comment on above: Performed By: #### B RADIO INSTALLER, CMP #### [facility] [address] [place] [address] Dr. Usama Hobbs Calcium [Mass/Vol] 7.8 mg/dL Critically low 8.5-10.[address] [facility] Comment on above: Performed By: #### B RADIO INSTALLER, CMP #### [facility] [address] [address] [address] Usama Hobbs Chloride [Moles/Vol] 104 mmol/L Normal 98-107 [facility] [place] Comment on above: Performed By: #### B RADIO INSTALLER, CMP #### [facility] [address] [place] [address] Dr. Usama Hobbs CO2 [Moles/Vol] 25.0 mmol/L Normal 21.0-32.0 [facility] [place] Comment on above: Performed By: #### B RADIO INSTALLER, CMP #### [facility] [address] [place] [address] Dr. Usama Hobbs Creatinine [Mass/Vol] 1.97 mg/dL Critically high 0.70-1.30 [facility] Comment on above: Performed By: #### B RADIO INSTALLER, CMP #### [facility] [address] [place] [address] Dr. Usama Hobbs EGFR-AF SLOVAK 42 mL/min/1.73m2 Critically low >=60 [facility] Comment on above: Performed By: #### B RADIO INSTALLER, CMP #### [facility] [address] [place] [address] Dr. Usama Hobbs EGFR-NON AF SLOVAK 34 mL/min/1.73m2 Critically low >=60 [facility] Comment on above: Performed By: #### B RADIO INSTALLER, CMP #### [facility] [address] [place] [address] Dr. Usama Hobbs Globulin (S) [Mass/Vol] 3.3 g/dL Normal [facility] Comment on above: Performed By: #### B RADIO INSTALLER, CMP #### [facility] [address] [place] [address] Dr. Usama Hobbs Glucose [Mass/Vol] 91 mg/dL Normal 74-106 [facility] Comment on above: Performed By: #### B RADIO INSTALLER, CMP #### [facility] [address] [place] [address] Dr. Usama Hobbs Potassium [Moles/Vol] 3.5 mmol/L Normal 3.5-5.1 [facility] Comment on above: Performed By: #### B RADIO INSTALLER, CMP #### [facility] [address] [place] [address] Dr. Usama Hobbs Protein [Mass/Vol] 6.1 g/dL Normal 6.1-8.2 [facility] Comment on above: Performed By: #### B RADIO INSTALLER, CMP #### [facility] [address] [place] [address] Dr. Usama Hobbs Sodium [Moles/Vol] 140 mmol/L Normal 136-145 [facility] Comment on above: Performed By: #### B RADIO INSTALLER, CMP #### [facility] [address] [place] [address] Dr. Usama Hobbs Urea nitrogen [Mass/Vol] 18.0 mg/dL Normal 7.0-18.0 [facility] Comment on above: Performed By: #### B RADIO INSTALLER, CMP #### [facility] [address] [place] [address] Dr. Usama Hobbs Urea nitrogen/Creatinine [Mass ratio] 9.1 mg/mg Normal [facility] Comment on above: Performed By: #### B RADIO INSTALLER, CMP #### [facility] [address] [place] [address] Dr. Usama Hobbs T3, TOTAL (TRIIODOTHYRONINE) on 11-18-2021 T3, TOTAL 101 ng/dL Normal 71-180 [facility] Comment on above: Performed By: #### T 3TOTAL #### [facility] [address] [place] [address] Dr. Usama Hobbs BNPon 11-17-2021 Natriuretic peptide B (Bld) [Mass/Vol] 6047.0 pg/mL Critically high <=900.0 [facility] Comment on above: Performed By: #### C MP, BNP #### [facility] [address] [place] [address] Dr. Usama Hobbs CBC AUTO DIFFon 11-17-2021 BASO # 0.0 103/ul Normal 0.0-0.1 [facility] Comment on above: Performed By: #### C BC #### [facility] [address] [address] [address] Usama Hobbs Basophils/100 WBC (Bld) 0.4 % Normal 0.2-2.0 [facility] Comment on above: Performed By: #### C BC #### [facility] [address] [place] [address] Dr. Usama Hobbs EO # 0.1 103/ul Normal 0.0-0.7 [facility] Comment on above: Performed By: #### C BC #### [facility] [address] [place] [address] Dr. Usama Hobbs Eosinophils/100 WBC (Bld) 6.2 % Normal 0.9-7.0 [facility] Comment on above: Performed By: #### C BC #### [facility] [address] [place] [address] Dr. Usama Hobbs Erythrocyte distribution width (RBC) [Ratio] 12.3 % Normal 11.0-15.0 [facility] Comment on above: Performed By: #### C BC #### [facility] [address] [place] [address] Dr. Usama Hobbs Hematocrit (Bld) [Volume fraction] 31.8 % Critically low 42.0-54.0 [facility] Comment on above: Performed By: #### C BC #### [facility] [address] [place] [address] Dr. Usama Hobbs Hemoglobin (Bld) [Mass/Vol] 10.5 g/dL Critically low 14.0-18.0 [facility] Comment on above: Performed By: #### C BC #### [facility] [address] [place] [address] Dr. Usama Hobbs IG # 0.01 10e3/ul Normal 0.00-0.03 [facility] Comment on above: Performed By: #### C BC #### [facility] [address] [place] [address] Dr. Usama Hobbs IG % 0.4 % Normal 0.0-0.5 [facility] Comment on above: Performed By: #### C BC #### [facility] [address] [place] [address] Dr. Usama Hobbs LYMPH # 0.6 103/ul Critically low 1.2-3.8 [facility] Comment on above: Performed By: #### C BC #### [facility] [address] [place] [address] Dr. Usama Hobbs Lymphocytes/100 WBC (Bld) 27.4 % Normal 20.5-60.0 [facility] Comment on above: Performed By: #### C BC #### [facility] [address] [place] [address] Dr. Usama Hobbs MANUAL DIFF REQ NO Normal [facility] Comment on above: Performed By: #### C BC #### [facility] [address] [place] [address] Dr. Usama Hobbs MCH (RBC) [Entitic mass] 30.3 pg Normal 25.9-34.0 [facility] Comment on above: Performed By: #### C BC #### [facility] [address] [place] [address] Dr. Usama Hobbs MCHC (RBC) [Mass/Vol] 33.0 g/dL Normal 29.9-35.2 [facility] Comment on above: Performed By: #### C BC #### [facility] [address] [place] [address] Dr. Usama Hobbs MCV (RBC) [Entitic vol] 91.6 fL Normal 80.0-94.0 [facility] Comment on above: Performed By: #### C BC #### [facility] [address] [place] [address] Dr. Usama Hobbs MONO # 0.4 103/ul Normal 0.3-0.8 [facility] Comment on above: Performed By: #### C BC #### [facility] [address] [place] [address] Dr. Usama Hobbs Monocytes/100 WBC (Bld) 17.3 % Critically high 1.7-12.0 [facility] Comment on above: Performed By: #### C BC #### [facility] [address] [place] [address] Dr. Usama Hobbs NEUT # 1.1 103/ul Critically low 1.4-6.5 [facility] [place] [facility] Comment on above: Performed By: #### C BC #### [facility] [address] [place] [address] Dr. Usama Hobbs Neutrophils/100 WBC (Bld) 48.3 % Normal 43.0-75.0 [facility] Comment on above: Performed By: #### C BC #### [facility] [address] [place] [address] Dr. Usama Hobbs Platelet mean volume (Bld) [Entitic vol] 10.9 fL Normal 9.5-13.5 [facility] Comment on above: Performed By: #### C BC #### [facility] [address] [place] [address] Dr. Usama Hobbs PLT 174 103/ul Normal 150-450 [facility] Comment on above: Performed By: #### C BC #### [facility] [address] [place] [address] Dr. Usama Hobbs RBC 3.47 106/ul Critically low 4.70-6.10 [facility] Comment on above: Performed By: #### C BC #### [facility] [address] [place] [address] Dr. Usama Hobbs WBC 2.3 103/ul Critically low 4.0-11.0 [facility] Comment on above: Performed By: #### C BC #### [facility] [address] [place] [address] Dr. Usama Hobbs PROF 14(COMP METB)on 022 Albumin [Mass/Vol] 3.3 g/dL Critically low 3.4-5.[address] [facility] Comment on above: Performed By: #### C MP, BNP #### [facility] [address] [place] [address] Dr. Usama Hobbs Albumin/Globulin [Mass ratio] 0.9 {ratio} Normal [facility] Comment on above: Performed By: #### C MP, BNP #### [facility] [address] [place] [address] Dr. Usama Hobbs ALP [Catalytic activity/Vol] 73 U/L Normal 46-116 [facility] Comment on above: Performed By: #### C MP, BNP #### [facility] [address] [place] [address] Dr. Usama Hobbs ALT [Catalytic activity/Vol] 31 U/L Normal 16-63 [facility] Comment on above: Performed By: #### C MP, BNP #### [facility] [address] [place] [address] Dr. Usama Hobbs Anion gap [Moles/Vol] 13.8 mmol/L Normal [facility] Comment on above: Performed By: #### C MP, BNP #### [facility] [address] [place] [address] Dr. Usama Hobbs AST [Catalytic activity/Vol] 22 U/L Normal 15-37 [facility] Comment on above: Performed By: #### C MP, BNP #### [facility] [address] [place] [address] Dr. Usama Hobbs Bilirubin [Mass/Vol] 0.6 mg/dL Normal 0.2-1.0 [facility] Comment on above: Performed By: #### C MP, BNP #### [facility] [address] [place] [address] Dr. Usama Hobbs Calcium [Mass/Vol] 8.3 mg/dL Critically low 8.5-10.1 [facility] [facility] Comment on above: Performed By: #### C MP, BNP #### [facility] [address] [place] [address] Dr. Usama Hobbs Chloride [Moles/Vol] 105 mmol/L Normal 98-107 [facility] Comment on above: Performed By: #### C MP, BNP #### [facility] [address] [place] [address] Dr. Usama Hobbs CO2 [Moles/Vol] 26.1 mmol/L Normal 21.0-32.0 [facility] Comment on above: Performed By: #### C MP, BNP #### [facility] [address] [place] [address] Dr. Usama Hobbs Creatinine [Mass/Vol] 2.05 mg/dL Critically high 0.70-1.30 [facility] Comment on above: Performed By: #### C MP, BNP #### [facility] [address] [address] [address] Usama Hobbs EGFR-AF SLOVAK 40 mL/min/1.73m2 Critically low >=60 [facility] Comment on above: Performed By: #### C MP, BNP #### [facility] [address] [address] [address] Usama Hobbs EGFR-NON AF SLOVAK 33 mL/min/1.73m2 Critically low >=60 [facility] Comment on above: Performed By: #### C MP, BNP #### [facility] [address] [place] [address] Dr. Usama Hobbs Globulin (S) [Mass/Vol] 3.7 g/dL Normal [facility] Comment on above: Performed By: #### C MP, BNP #### [facility] [address] [place] [address] Dr. Usama Hobbs Glucose [Mass/Vol] 86 mg/dL Normal 74-106 [facility] Comment on above: Performed By: #### C MP, BNP #### [facility] [address] [place] [address] Dr. Usama Hobbs Potassium [Moles/Vol] 3.9 mmol/L Normal 3.5-5.1 [facility] Comment on above: Performed By: #### C MP, BNP #### [facility] [address] [place] [address] Dr. Usama Hobbs Protein [Mass/Vol] 7.0 g/dL Normal 6.1-8.2 [facility] Comment on above: Performed By: #### C MP, BNP #### [facility] [address] [place] [address] Dr. Usama Hobbs Sodium [Moles/Vol] 141 mmol/L Normal 136-145 [facility] Comment on above: Performed By: #### C MP, BNP #### [facility] [address] [place] [address] Dr. Usama Hobbs Urea nitrogen [Mass/Vol] 21.0 mg/dL Critically high 7.0-18.0 [facility] Comment on above: Performed By: #### C MP, BNP #### [facility] [address] [address] [address] Usama Hobbs Urea nitrogen/Creatinine [Mass ratio] 10.2 mg/mg Normal [facility] Comment on above: Performed By: #### C MP, BNP #### [facility] [address] [address] [address] Usama Hobbs Basic metabolic 2000 panelon 11-16-2021 Anion gap [Moles/Vol] 16 mmol/L 9 - 18 mmol/L [facility] Calcium [Mass/Vol] 9.2 mg/dL 8.5 - 10.2 mg/dL [facility] Chloride [Moles/Vol] 102 mmol/L 97 - 105 mmol/L [facility] CO2 [Moles/Vol] 20 mmol/L Low 22 - 30 mmol/L [facility] Creatinine [Mass/Vol] 2.33 mg/dL High 0.73 - 1.22 mg/dL [facility] Estimated Glomerular Filtration Rate 30 mL/min/1.73m Low >=60 mL/min/1.73m [facility] Glucose [Mass/Vol] 78 mg/dL 74 - 99 mg/dL [facility] Potassium [Moles/Vol] 3.9 mmol/L 3.7 - 5.1 mmol/L [facility] Sodium [Moles/Vol] 138 mmol/L 136 - 144 mmol/L [facility] Urea nitrogen [Mass/Vol] 27 mg/dL High 9 - 24 mg/dL [facility] CBC W MANUAL DIFFon 11-17-19 22 ATYPICAL LYMPH # Normal [facility] Comment on above: Performed By: #### B RADIO INSTALLER, CMP #### [facility] [address] [place] [address] Dr. Usama Hobbs ATYPICAL LYMPH % Normal [facility] Comment on above: Performed By: #### B RADIO INSTALLER, CMP #### [facility] [address] [address] [address] Usama Hobbs BAND # 0.0 103/ul Normal 0.0-0.3 [facility] Comment on above: Performed By: #### B RADIO INSTALLER, CMP #### [facility] [address] [place] [address] Dr. Usama Hobbs BAND % 0 % Normal 0-5 [facility] Comment on above: Performed By: #### B RADIO INSTALLER, CMP #### [facility] [address] [place] [address] Dr. Usama Hobbs BASOM # 0.00 103/ul Normal 0.00-0.10 [facility] Comment on above: Performed By: #### B RADIO INSTALLER, CMP #### [facility] [address] [place] [address] Dr. Usama Hobbs BASOM % 0.0 % Critically low 0.2-2.0 [facility] Comment on above: Performed By: #### B RADIO INSTALLER, CMP #### [facility] [address] [place] [address] Dr. Usama Hobbs BLAST # Normal [facility] Comment on above: Performed By: #### B RADIO INSTALLER, CMP #### [facility] [address] [place] [address] Dr. Usama Hobbs BLAST % Normal [facility] Comment on above: Performed By: #### B RADIO INSTALLER, CMP #### [facility] [address] [place] [address] Dr. Usama Hobbs CORRECTED WBC Normal 4.0-11.0 [facility] Comment on above: Performed By: #### B RADIO INSTALLER, CMP #### [facility] [address] [place] [address] Dr. Usama Hobbs EOS # 0.14 103/ul Normal 0.00-0.70 [facility] Comment on above: Performed By: #### B RADIO INSTALLER, CMP #### [facility] [address] [place] [address] Dr. Usama Hobbs EOS% 8.0 % Critically high 0.9-7.0 [facility] Comment on above: Performed By: #### B RADIO INSTALLER, CMP #### [facility] [address] [place] [address] Dr. Usama Hobbs HCT 28.7 % Critically low 42.0-54.0 [facility] Comment on above: Performed By: #### B RADIO INSTALLER, CMP #### [facility] [address] [address] [address] Usama Hobbs HGB 9.7 g/dl Critically low 14.0-18.0 [facility] Comment on above: Performed By: #### B RADIO INSTALLER, CMP #### [facility] [address] [address] [address] Usama Hobbs LYMPHM # 0.59 103/ul Critically low 1.20-3.80 [facility] Comment on above: Performed By: #### B RADIO INSTALLER, CMP #### [facility] [address] [address] [address] Usama Hobbs LYMPHM% 33.0 % Normal 20.5-60.0 [facility] Comment on above: Performed By: #### B RADIO INSTALLER, CMP #### [facility] [address] [place] [address] Dr. Usama Hobbs MCH 30.9 pg Normal 25.9-34.0 [facility] Comment on above: Performed By: #### B RADIO INSTALLER, CMP #### [facility] [address] [address] [address] Usama Hobbs MCHC 33.8 g/dl Normal 29.9-35.2 [facility] Comment on above: Performed By: #### B RADIO INSTALLER, CMP #### [facility] [address] [place] [address] Dr. Usama Hobbs MCV 91.4 fL Normal 80.0-94.0 [facility] Comment on above: Performed By: #### B RADIO INSTALLER, CMP #### [facility] [address] [address] [address] Usama Hobbs METAMYELOCYTE # 0.0 103/ul Normal [facility] Comment on above: Performed By: #### B RADIO INSTALLER, CMP #### [facility] [address] [address] [address] Usama Hobbs METAMYELOCYTE % 1 % Normal [facility] Comment on above: Performed By: #### B RADIO INSTALLER, CMP #### [facility] [address] [place] [address] Dr. Usama Hobbs MONOM# 0.14 103/ul Critically low 0.30-0.80 [facility] Comment on above: Performed By: #### B RADIO INSTALLER, CMP #### [facility] [address] [place] [address] Dr. Usama Hobbs MONOM% 8.0 % Normal 1.7-12.0 [facility] Comment on above: Performed By: #### B RADIO INSTALLER, CMP #### [facility] [address] [place] [address] Dr. Usama Hobbs MPV 10.5 fL Normal 9.5-13.5 [facility] Comment on above: Performed By: #### B RADIO INSTALLER, CMP #### [facility] [address] [place] [address] Dr. Usama Hobbs MYELOCYTE # 0.1 103/ul Normal [facility] Comment on above: Performed By: #### B RADIO INSTALLER, CMP #### [facility] [address] [place] [address] Dr. Usama Hobbs MYELOCYTE % 5 % Normal [facility] Comment on above: Performed By: #### B RADIO INSTALLER, CMP #### [facility] [address] [place] [address] Dr. Usama Hobbs NRBC Normal [facility] Comment on above: Performed By: #### B RADIO INSTALLER, CMP #### [facility] [address] [place] [address] Dr. Usama Hobbs PLT 163 103/ul Normal 150-450 [facility] Comment on above: Performed By: #### B RADIO INSTALLER, CMP #### [facility] [address] [place] [address] Dr. Usama Hobbs RBC 3.14 106/ul Critically low 4.70-6.10 [facility] Comment on above: Performed By: #### B RADIO INSTALLER, CMP #### [facility] [address] [place] [address] Dr. Usama Hobbs RDW 12.4 % Normal 11.0-15.0 [facility] Comment on above: Performed By: #### B RADIO INSTALLER, CMP #### [facility] [address] [place] [address] [address]. Usama Hobbs SEG # 0.81 103/ul Critically low 1.40-6.50 [facility] Comment on above: Performed By: #### B RADIO INSTALLER, CMP #### [facility] [address] [address] [address] Usama Hobbs SEG % 45.0 % Normal 43.0-75.0 [facility] Comment on above: Performed By: #### B RADIO INSTALLER, CMP #### [facility] [address] [address] [address] Usama Hobbs WBC 1.8 103/ul Critically low 4.0-11.0 [facility] Comment on above: Performed By: #### B RADIO INSTALLER, CMP #### [facility] [address] [address] [address] HEAD WO CONon [...] JOSUE SINGH Date: 2021-11-16 18:41 Normal [facility]20 SARS-CoV-2 (COVID-19) RNA TONYA+probe Ql (Unsp spec) Not detected Normal NOT DETECTED [facility] Comment on above: Result Comment: This test is not yet approved or cleared by the [place] FDA. When there are no FDA-approved or cleared tests available, and other criteria are met, FDA can make tests available under an emergency access mechanism called an Emergency Use Authorization (EUA). The EUA for this test is supported by the [place] of Health and Human Service's (HHS's) declaration [...] consistent with SARS-CoV-2. Performed By: #### B RADIO INSTALLER, CMP #### [facility] [address] [place] [address] Dr. Usama Hobbs PROF 14(COMP METB)on 022 Albumin [Mass/Vol] 3.3 g/dL Critically low 3.4-5.0 [facility] Comment on above: Performed By: #### P SAD #### [facility] [address] [place] [address] Dr. Usama Hobbs Albumin/Globulin [Mass ratio] 0.9 {ratio} Normal [facility] Comment on above: Performed By: #### P SAD #### [facility] [address] [place] [address] Dr. Usama Hobbs ALP [Catalytic activity/Vol] 78 U/L Normal 46-116 [facility] Comment on above: Performed By: #### P SAD #### [facility] [address] [place] [address] Dr. Usama Hobbs ALT [Catalytic activity/Vol] 33 U/L Normal 16-63 [facility] Comment on above: Performed By: #### P SAD #### [facility] [address] [place] [address] Dr. Usama Hobbs Anion gap [Moles/Vol] 9.8 mmol/L Normal [facility] Comment on above: Performed By: #### P SAD #### [facility] [address] [place] [address] Dr. Usama Hobbs AST [Catalytic activity/Vol] 25 U/L Normal 15-37 [facility] Comment on above: Performed By: #### P SAD #### [facility] [address] [place] [address] Dr. Usama Hobbs Bilirubin [Mass/Vol] 0.4 mg/dL Normal 0.2-1.0 [facility] Comment on above: Performed By: #### P SAD #### [facility] [address] [address] [address] Usama Hobbs Calcium [Mass/Vol] 8.1 mg/dL Critically low 8.5-10.[address] [facility] Comment on above: Performed By: #### P SAD #### [facility] [address] [place] [address] Dr. Usama Hobbs Chloride [Moles/Vol] 102 mmol/L Normal 98-107 [facility] Comment on above: Performed By: #### P SAD #### [facility] [address] [place] [address] Dr. Usama Hobbs CO2 [Moles/Vol] 27.0 mmol/L Normal 21.0-32.0 [facility] Comment on above: Performed By: #### P SAD #### [facility] [address] [place] [address] Dr. Usama Hobbs Creatinine [Mass/Vol] 2.27 mg/dL Critically high 0.70-1.30 [facility] Comment on above: Performed By: #### P SAD #### [facility] [address] [place] [address] Dr. Usama Hobbs EGFR-AF SLOVAK 35 mL/min/1.73m2 Critically low >=60 [facility] Comment on above: Performed By: #### P SAD #### [facility] [address] [place] [address] Dr. Usama Hobbs EGFR-NON AF [place]OVAK 29 mL/min/1.73m2 Critically low >=60 [facility] Comment on above: Performed By: #### P SAD #### [facility] [address] [place] [address] Dr. Usama Hobbs Globulin (S) [Mass/Vol] 3.5 g/dL Normal [facility] Comment on above: Performed By: #### P SAD #### [facility] [address] [place] [address] Dr. Usama Hobbs Glucose [Mass/Vol] 88 mg/dL Normal 74-106 [facility] Comment on above: Performed By: #### P SAD #### [facility] [address] [address] [address] Usama Hobbs Potassium [Moles/Vol] 3.8 mmol/L Normal 3.5-5.1 [facility] Comment on above: Performed By: #### P SAD #### [facility] [address] [address] [address] Usama Hobbs Protein [Mass/Vol] 6.8 g/dL Normal 6.1-8.2 [facility] Comment on above: Performed By: #### P SAD #### [facility] [address] [address] [address] Usama Hobbs Sodium [Moles/Vol] 135 mmol/L Critically low 136-[address] [facility] Comment on above: Performed By: #### P SAD #### [facility] [address] [address] [address] Usama Hobbs Urea nitrogen [Mass/Vol] 26.0 mg/dL Critically high 7.0-18.0 [facility] Comment on above: Performed By: #### P SAD #### [facility] [address] [address] [address] Usama Hobbs Urea nitrogen/Creatinine [Mass ratio] 11.5 mg/mg Normal [facility] Comment on above: Performed By: #### P SAD #### [facility] [address] [address] [address] Usama Hobbs PROTIMEon 11-16-2021 INR Coag (PPP) [Relative time] 0.99 {INR} Normal [facility] Comment on above: Performed By: #### B RADIO INSTALLER, CMP #### [facility] [address] [address] [address] Usama Hobbs INR GUIDELINES SEE BELOW Normal [facility] Comment on above: Result Comment: LUCY RED INR: 2.0 - 3.0 CONDITIONS NOT LISTED BELOW 2.5 - 3.5 FOR PROSTHETIC HEART VALVE REPLACEMENT 2.5 - 3.5 RECURRENT THROMBOSIS Performed By: #### B RADIO INSTALLER, CMP #### [facility] [address] [place] [address] Dr. Usama Hobbs PT Coag (PPP) [Time] 10.7 s Normal 9.0-11.6 [facility] Comment on above: Performed By: #### B RADIO INSTALLER, CMP #### [facility] [address] [place] [address] Dr. Usama Hobbs PTTon 11-16-2021 aPTT Coag (Bld) [Time] 28.2 s Normal 22.3-36.2 [facility] Comment on above: Performed By: #### B RADIO INSTALLER, CMP #### [facility] [address] [place] [address] Dr. Usama Hobbs T4on 11-16-2021 T4 [Mass/Vol] 6.30 ug/dL Normal 4.50-12.10 [facility] Comment on above: Performed By: #### P SAD #### [facility] [address] [place] [address] Dr. Usama Hobbs TROPONIN, HIGH SENSITIVITYon 11-16-2021 HSTROP 24.0 pg/mL Normal 4.0-76.1 [facility] Comment on above: Result Comment: CUT- OFF POINTS HAVE BEEN ESTABLISHED BASED ON THE FOURTH UNIVERSAL DEFINITIONS OF MYOCARDIAL INFARCTION. THE UPPER REFERENCE LIMIT (URL) OF TROPONIN, DEFINED THE 99TH PERCENTILE OF cTnI DISTRIBUTION IN A REFERENCE POPULATION, HAS BEEN CONFIRMED THE DECISION THRESHOLD FOR [place] DIAGNOSIS. Performed By: #### B RADIO INSTALLER, CMP #### [facility] [address] [place] [address] Dr. Usama Hobbs TSHon 11-16-2021 TSH 2.466 uIU/mL Normal 0.470-4.680 [facility] Comment on above: Performed By: #### P SAD #### [facility] [address] [place] [address] Dr. Usama Hobbs TSH RANGE SEE BELOW Normal [facility] Comment on above: Result Comment: <0.3 4 UIU/ml HYPERTHYROID 0.34-5.60 UIU/ml EUTHYROID >5.60 UIU/ml HYPOTHYROID Performed By: #### P SAD #### [facility] [address] [address] [address] Usama Hobbs XR CHEST 1 Von [...] LEA ANTUNEZ Date: 2021-11-16 19:24 Normal [facility] CBC W Auto Differential pane l (Bld)on 11-05-2021 Abs Immature Gran <0.03 <0.10 k/uL [facility] Basophils (Bld) [#/Vol] 0.05 10*3/uL <0.11 k/uL [facility] Basophils/100 WBC (Bld) 1.0 % [facility] Differential cell count method Nom (Bld) Auto [facility] Eosinophils (Bld) [#/Vol] 0.39 10*3/uL <0.46 k/uL [facility] Eosinophils/100 WBC (Bld) 7.4 % [facility] Erythrocyte distribution width (RBC) [Ratio] 13.2 % 11.5 - 15.0 % [facility] Hematocrit (Bld) [Volume fraction] 39.1 % 39.0 - 51.0 % [facility] Hemoglobin (Bld) [Mass/Vol] 12.9 g/dL Low 13.0 - 17.0 g/dL [facility] Immature Gran % 0.2 % [facility] Lymphocytes (Bld) [#/Vol] 1.07 10*3/uL 1.00 - 4.00 k/uL [facility] Lymphocytes/100 WBC (Bld) 20.4 % [facility] MCH (RBC) [Entitic mass] 30.6 pg 26.0 - 34.0 pg [facility] MCHC (RBC) [Mass/Vol] 33.0 g/dL 30.5 - 36.0 g/dL [facility] MCV (RBC) [Entitic vol] 92.9 fL 80.0 - 100.0 fL [facility] Monocytes (Bld) [#/Vol] 0.57 10*3/uL <0.87 k/uL [facility] Monocytes/100 WBC (Bld) 10.9 % [facility] Neutrophils (Bld) [#/Vol] 3.15 10*3/uL 1.45 - 7.50 k/uL [facility] Neutrophils/100 WBC (Bld) 60.1 % [facility] Nucleated RBC (Bld) [#/Vol] 10*3/uL <0.01 k/uL [facility] Nucleated RBC/100 WBC (Bld) [Ratio] 0.0 /100 WBC [facility] Platelet mean volume (Bld) [Entitic vol] 9.9 fL 9.0 - 12.7 fL [facility] Platelets (Bld) [#/Vol] 305 10*3/uL 150 - 400 k/uL [facility] RBC (Bld) [#/Vol] 4.21 10*6/uL 4.20 - 6.00 m/uL [facility] WBC (Bld) [#/Vol] 5.24 10*3/uL 3.70 - 11.00 k/u L [facility] Comprehensive metabolic 2000 panelon 11-05-2021 Albumin [Mass/Vol] 4.3 g/dL 3.9 - 4.9 g/dL [facility] ALP [Catalytic activity/Vol] 73 U/L 38 - 113 U/L [facility] ALT [Catalytic activity/Vol] 16 U/L 10 - 54 U/L [facility] Anion gap [Moles/Vol] 12 mmol/L 9 - 18 mmol/L [facility] AST [Catalytic activity/Vol] 17 U/L 14 - 40 U/L [facility] Bilirubin [Mass/Vol] 0.5 mg/dL 0.2 - 1.3 mg/dL [facility] Calcium [Mass/Vol] 10.1 mg/dL 8.5 - 10.2 mg/dL [facility] Chloride [Moles/Vol] 105 mmol/L 97 - 105 mmol/L [facility] CO2 [Moles/Vol] 25 mmol/L 22 - 30 mmol/L [facility] Creatinine [Mass/Vol] 0.89 mg/dL 0.73 - 1.22 mg/dL [facility] Estimated Glomerular Filtration Rate 96 mL/min/1.73m >=60 mL/min/1.73m [facility] Glucose [Mass/Vol] 154 mg/dL High 74 - 99 mg/dL [facility] Potassium [Moles/Vol] 4.2 mmol/L 3.7 - 5.1 mmol/L [facility] Protein [Mass/Vol] 7.1 g/dL 6.3 - 8.0 g/dL [facility] Sodium [Moles/Vol] 142 mmol/L 136 - 144 mmol/L [facility] Urea nitrogen [Mass/Vol] 9 mg/dL 9 - 24 mg/dL [facility] MRI BRAIN WO/W IVCONon 10-31 [facility] XR CHEST 2V FRONTAL/LATon [facility] NM PET/CT WHOLE BODY INITIAL on 05-28-2021 [facility] Cardiovascular Lab Reporton 02-24-[address] [facility] Patient Name: Riccardo , [facility] Cristal Maloney MR #: [id number] Department of Physician: [facility] Alma Chaney M.D. Division of Service Date: 02/23/2019 Cardiology Birthdate: 1955 Adult Cardiovascular Room #: [id number] [place] [address] Cardiovascular Laboratory Report INDICATION: The patient is [...] informed consent. He was brought to lab support tech in a fasting state. The right groin area was prepped and draped in usual fashion. Using micropuncture technique, the right common femoral artery was accessed. The inner cannula was advanced and limited right femoral angiography was performed followed by upsizing to a 6-[place] x 5 cm sheath. Right lower extremity angiography was performed down to the level of the foot. An angled Glidewire was advanced into the abdominal aorta and a 5-[place] Uni-Flush catheter was advanced. Aortoiliac angiography was performed using digital subtraction angiography and power injection of contrast. Using the angled Glidewire, the aortoiliac bifurcation was crossed and the catheter was exchanged to a 5-Beninese straight tapered diagnostic catheter, which was used [...] The access sheath was exchanged to a 6-Beninese x 11 cm sheath. The patient was [...] Chaney M.D. Date Trans: 02/24/2019 05:47 A/boris [id number] cc: Christina Azul M.D. [address] [place] [id number] [facility] Vital Signs Date Time Vital Sign Value Performing Clinician Facility 03-20-2024 15:21-0400 Body temperature 97.8 [degF] [facility] 03-20-2024 15:21-0400 Diastolic blood pressure 82 mm[Hg] [facility] 03-20-2024 15:21-0400 Heart rate 68 /min [facility] 03-20-2024 15:21-0400 Respiratory rate 16 /min [facility] 03-20-2024 15:21-0400 SaO2% (BldA) [Mass fraction] 98 % [facility] 03-20-2024 15:21-0400 Systolic blood pressure 171 mm[Hg] [facility] 03-20-2024 06:00-0400 Body weight 50.2 kg [facility] 03-20-2024 00:00-0400 Inhaled oxygen flow rate 2 L/min [facility] 03-19-2024 11:15-0400 Heart rate 80 /min [facility] 03-19-2024 11:00-0400 Diastolic blood pressure 84 mm[Hg] [facility] 03-19-2024 11:00-0400 Respiratory rate 16 /min [facility] 03-19-2024 11:00-0400 SaO2% (BldA) [Mass fraction] 95 % [facility] 03-19-2024 11:00-0400 Systolic blood pressure 178 mm[Hg] [facility] 03-19-2024 09:14-0400 Body height 170.18 cm [facility] 03-19-2024 09:14-0400 Body temperature 97.9 [degF] [facility] 03-19-2024 09:14-0400 Body weight 52.25 kg [facility] 03-18-2024 18:52-0400 Diastolic blood pressure 90 mm[Hg] [facility] 03-18-2024 18:52-0400 Systolic blood pressure 190 mm[Hg] [facility] 03-18-2024 18:45-0400 Body height 170.18 cm [facility] 03-18-2024 18:45-0400 Body temperature 98.4 [degF] [facility] 03-18-2024 18:45-0400 Body weight 52.8 kg [facility] 03-18-2024 18:45-0400 Heart rate 67 /min [facility] 03-18-2024 18:45-0400 Respiratory rate 21 /min [facility] 03-18-2024 18:45-0400 SaO2% (BldA) [Mass fraction] 100 % [facility] 03-18-2024 13:27-0400 SaO2% (BldA) [Mass fraction] 84 % Nina Grigsby MD Work Phone: [facility] 03-18-2024 13:21-0400 Body height 168.3 cm Nina Grigsby MD Work Phone: [facility] 03-18-2024 13:21-0400 Body mass index (BMI) [Ratio] 18.15 kg/m2 Nina Grigsby MD Work Phone: [facility] 03-18-2024 13:21-0400 Body temperature 97.5 [degF] Nina Grigsby MD Work Phone: [facility] 03-18-2024 13:21-0400 Body weight 51.4 kg Nina Grigsby MD Work Phone: [facility] 03-18-2024 13:21-0400 Diastolic blood pressure 78 mm[Hg] Nina Grigsby MD Work Phone: [facility] 03-18-2024 13:21-0400 Heart rate 86 /min Nina Grigsby MD Work Phone: [facility] 03-18-2024 13:21-0400 Respiratory rate 16 /min Nina Grigsby MD Work Phone: [facility] 03-18-2024 13:21-0400 Systolic blood pressure 159 mm[Hg] Nina Grigsby MD Work Phone: [facility] 03-15-2024 13:06-0400 Body mass index (BMI) [Ratio] 17.62 kg/m2 Merary Lucas MD Work Phone: [facility] 03-15-2024 13:06-0400 Body weight 49.9 kg Merary Lucas MD Work Phone: [facility] 03-15-2024 13:06-0400 Diastolic blood pressure 62 mm[Hg] Merary Lucas MD Work Phone: [facility] 03-15-2024 13:06-0400 Heart rate 65 /min Merary Lucas MD Work Phone: [facility] 03-15-2024 13:06-0400 SaO2% (BldA) [Mass fraction] 100 % Merary Lucas MD Work Phone: [facility] Comment on above: 03-15-2024 13:06-0400 Systolic blood pressure 127 mm[Hg] Merary Lucas MD Work Phone: [facility] 02-07-2024 19:28-0400 Diastolic blood pressure 75 mm[Hg] [facility] 02-07-2024 19:28-0400 Heart rate 76 /min [facility] 02-07-2024 19:28-0400 Respiratory rate 18 /min [facility] 02-07-2024 19:28-0400 SaO2% (BldA) [Mass fraction] 97 % [facility] 02-07-2024 19:28-0400 Systolic blood pressure 159 mm[Hg] [facility] 02-07-2024 15:51-0400 Body height 170.18 cm [facility] 02-07-2024 15:51-0400 Body temperature 98 [degF] [facility] 02-07-2024 15:51-0400 Body weight 52.3 kg [facility] 02-03-2024 11:32-0400 Body height 168.3 cm Yusef Jessica PA-C Work Phone: [facility] 02-03-2024 11:32-0400 Body mass index (BMI) [Ratio] 18.43 kg/m2 Yusef Jessica PA-C Work Phone: [facility] 02-03-2024 11:32-0400 Body temperature 97.3 [degF] Yusef Jessica PA-C Work Phone: [facility] 02-03-2024 11:32-0400 Body weight 52.2 kg Yusef Jessica PA-C Work Phone: [facility] 02-03-2024 11:32-0400 Diastolic blood pressure 74 mm[Hg] Yusef Jessica PA-C Work Phone: [facility] 02-03-2024 11:32-0400 Heart rate 92 /min Yusef Jessica PA-C Work Phone: [facility] 02-03-2024 11:32-0400 Respiratory rate 18 /min Yusef Jessica PA-C Work Phone: [facility] 02-03-2024 11:32-0400 SaO2% (BldA) [Mass fraction] 99 % Yusef Pandya PA-C Work Phone: [facility] 02-03-2024 11:32-0400 Systolic blood pressure 122 mm[Hg] Yusef Pandya PA-C Work Phone: [facility] 12-23-2023 14:53-0400 Body height 168.3 cm Nina Grigsby MD Work Phone: [facility] 12-23-2023 14:53-0400 Body mass index (BMI) [Ratio] 19.49 kg/m2 Nina Grigsby MD Work Phone: [facility] 12-23-2023 14:53-0400 Body temperature 97.39 [degF] Nina Grigsby MD Work Phone: [facility] 12-23-2023 14:53-0400 Body weight 55.2 kg Nina Grigsby MD Work Phone: [facility] 12-23-2023 14:53-0400 Diastolic blood pressure 74 mm[Hg] Nina Grigsby MD Work Phone: [facility] 12-23-2023 14:53-0400 Heart rate 71 /min Nina Grigsby MD Work Phone: [facility] 12-23-2023 14:53-0400 Respiratory rate 16 /min Nina Grigsby MD Work Phone: [facility] 12-23-2023 14:53-0400 SaO2% (BldA) [Mass fraction] 99 % Nina Grigsby MD Work Phone: [facility] 12-23-2023 14:53-0400 Systolic blood pressure 137 mm[Hg] Nina Grigsby MD Work Phone: [facility] 12-22-2023 12:38-0400 Body mass index (BMI) [Ratio] 18.29 kg/m2 JC Limon MD Work Phone: [facility] 12-22-2023 12:38-0400 Body temperature 97.59 [degF] JC Limon MD Work Phone: [facility] 12-22-2023 12:38-0400 Body weight 51.8 kg JC Limon MD Work Phone: [facility] 12-22-2023 12:38-0400 Diastolic blood pressure 83 mm[Hg] JC Limon MD Work Phone: [facility] 12-22-2023 12:38-0400 Heart rate 116 /min JC Limon MD Work Phone: [facility] 12-22-2023 12:38-0400 Respiratory rate 18 /min JC Limon MD Work Phone: [facility] 12-22-2023 12:38-0400 SaO2% (BldA) [Mass fraction] 99 % JC Limon MD Work Phone: [facility] 12-22-2023 12:38-0400 Systolic blood pressure 124 mm[Hg] JC Limon MD Work Phone: [facility] 12-16-2023 15:45-0400 Body mass index (BMI) [Ratio] 19.14 kg/m2 JC Limon MD Work Phone: [facility] 12-16-2023 15:45-0400 Body temperature 97.3 [degF] JC Limon MD Work Phone: [facility] 12-16-2023 15:45-0400 Body weight 54.2 kg JC Limon MD Work Phone: [facility] 12-16-2023 15:45-0400 Diastolic blood pressure 86 mm[Hg] JC Limon MD Work Phone: [facility] 12-16-2023 15:45-0400 Heart rate 66 /min JC Limon MD Work Phone: [facility] 12-16-2023 15:45-0400 Respiratory rate 16 /min JC Limon MD Work Phone: [facility] 12-16-2023 15:45-0400 SaO2% (BldA) [Mass fraction] 100 % JC Limon MD Work Phone: [facility] 12-16-2023 15:45-0400 Systolic blood pressure 161 mm[Hg] JC Limon MD Work Phone: [facility] 12-10-2023 14:40-0400 Body mass index (BMI) [Ratio] 19.21 kg/m2 NA Fay KHOURY Work Phone: [facility] 12-10-2023 14:40-0400 Body temperature 96.69 [degF] JC Limon MD Work Phone: [facility] 12-10-2023 14:40-0400 Body weight 54.4 kg JC Limon MD Work Phone: [facility] 12-10-2023 14:40-0400 Diastolic blood pressure 68 mm[Hg] JC Limon MD Work Phone: [facility] 12-10-2023 14:40-0400 Heart rate 68 /min JC Limon MD Work Phone: [facility] 12-10-2023 14:40-0400 Respiratory rate 16 /min JC Limon MD Work Phone: [facility] 12-10-2023 14:40-0400 SaO2% (BldA) [Mass fraction] 97 % JC Limon MD Work Phone: [facility] 12-10-2023 14:40-0400 Systolic blood pressure 125 mm[Hg] JC Limon MD Work Phone: [facility] 12-02-2023 10:20-0400 Body height 168.3 cm Nina Grigsby MD Work Phone: [facility] 12-02-2023 10:20-0400 Body mass index (BMI) [Ratio] 18.71 kg/m2 Nina Grigsby MD Work Phone: [facility] 12-02-2023 10:20-0400 Body temperature 96.69 [degF] Nina Grigsby MD Work Phone: [facility] 12-02-2023 10:20-0400 Body weight 53 kg Nina Grigsby MD Work Phone: [facility] 12-02-2023 10:20-0400 Diastolic blood pressure 83 mm[Hg] Nina Grigsby MD Work Phone: [facility] 12-02-2023 10:20-0400 Heart rate 55 /min Nina Grigsby MD Work Phone: [facility] 12-02-2023 10:20-0400 Respiratory rate 16 /min Nina Grigsby MD Work Phone: [facility] 12-02-2023 10:20-0400 SaO2% (BldA) [Mass fraction] 93 % Nina Grigsby MD Work Phone: [facility] 12-02-2023 10:20-0400 Systolic blood pressure 133 mm[Hg] Nina Grigsby MD Work Phone: [facility] 11-21-2023 10:05-0400 Body height 168.3 cm Estella Bundridge DRAWING IN MACHINE TENDER HELPER.ACCESS LEAD Work Phone: [facility] 11-21-2023 10:05-0400 Body mass index (BMI) [Ratio] 19.74 kg/m2 Estella Bundridge DRAWING IN MACHINE TENDER HELPER.ACCESS LEAD Work Phone: [facility] 11-21-2023 10:05-0400 Body temperature 97.7 [degF] Estella Bundridge DRAWING IN MACHINE TENDER HELPER.ACCESS LEAD Work Phone: [facility] 11-21-2023 10:05-0400 Body weight 55.9 kg Estella Bundridge DRAWING IN MACHINE TENDER HELPER.ACCESS LEAD Work Phone: [facility] 11-21-2023 10:05-0400 Diastolic blood pressure 91 mm[Hg] Estella Bundridge DRAWING IN MACHINE TENDER HELPER.ACCESS LEAD Work Phone: [facility] 11-21-2023 10:05-0400 Heart rate 95 /min Estella Bundridge DRAWING IN MACHINE TENDER HELPER.ACCESS LEAD Work Phone: [facility] 11-21-2023 10:05-0400 Respiratory rate 16 /min Estella Bundridge DRAWING IN MACHINE TENDER HELPER.ACCESS LEAD Work Phone: [facility] 11-21-2023 10:05-0400 SaO2% (BldA) [Mass fraction] 98 % Estella Bundridge DRAWING IN MACHINE TENDER HELPER.ACCESS LEAD Work Phone: [facility] 11-21-2023 10:05-0400 Systolic blood pressure 154 mm[Hg] Estella Bundridge DRAWING IN MACHINE TENDER HELPER.ACCESS LEAD Work Phone: [facility] 11-04-2023 09:43-0400 Body height 168.3 cm Nina Grigsby MD Work Phone: [facility] 11-04-2023 09:43-0400 Body temperature 97 [degF] Nina Grigsby MD Work Phone: [facility] 11-04-2023 09:43-0400 Body weight 56.3 kg Nina Grigsby MD Work Phone: [facility] 11-04-2023 09:43-0400 Diastolic blood pressure 84 mm[Hg] Nina Grigsby MD Work Phone: [facility] 11-04-2023 09:43-0400 Heart rate 101 /min Nina Grigsby MD Work Phone: [facility] 11-04-2023 09:43-0400 Respiratory rate 16 /min Nina Grigsby MD Work Phone: [facility] 11-04-2023 09:43-0400 SaO2% (BldA) [Mass fraction] 96 % Nina Grigsby MD Work Phone: [facility] 11-04-2023 09:43-0400 Systolic blood pressure 147 mm[Hg] Nina Grigsby MD Work Phone: [facility] 10-20-2023 10:06-0400 Body height 168.3 cm Nina Grigsby MD Work Phone: [facility] 10-20-2023 10:06-0400 Body temperature 97.3 [degF] Nina Grigsby MD Work Phone: [facility] 10-20-2023 10:06-0400 Body weight 57.5 kg Nina Grigsby MD Work Phone: [facility] 10-20-2023 10:06-0400 Diastolic blood pressure 72 mm[Hg] Nina Grigsby MD Work Phone: [facility] 10-20-2023 10:06-0400 Heart rate 82 /min Nina Grigsby MD Work Phone: [facility] 10-20-2023 10:06-0400 Respiratory rate 18 /min Nina Grigsby MD Work Phone: [facility] 10-20-2023 10:06-0400 SaO2% (BldA) [Mass fraction] 98 % Nina Grigsby MD Work Phone: [facility] 10-20-2023 10:06-0400 Systolic blood pressure 155 mm[Hg] Nina Grigsby MD Work Phone: [facility] 09-22-2023 09:56-0500 Body height 168.3 cm Nina Grigsby MD Work Phone: [facility] 09-22-2023 09:56-0500 Body temperature 97.11 [degF] Nina Grigsby MD Work Phone: [facility] 09-22-2023 09:56-0500 Body weight 60.2 kg Nina Grigsby MD Work Phone: [facility] 09-22-2023 09:56-0500 Diastolic blood pressure 78 mm[Hg] Nina Grigsby MD Work Phone: [facility] 09-22-2023 09:56-0500 Heart rate 91 /min Nina Grigsby MD Work Phone: [facility] 09-22-2023 09:56-0500 Respiratory rate 18 /min Nina Grigsby MD Work Phone: [facility] 09-22-2023 09:56-0500 SaO2% (BldA) [Mass fraction] 99 % Nina Grigsby MD Work Phone: [facility] 09-22-2023 09:56-0500 Systolic blood pressure 142 mm[Hg] Nina Grigsby MD Work Phone: [facility] 08-25-2023 14:55-0500 Body height 168.3 cm Nina Grigsby MD Work Phone: [facility] 08-25-2023 14:55-0500 Body temperature 97.59 [degF] Nina Grigsby MD Work Phone: [facility] 08-25-2023 14:55-0500 Body weight 61.2 kg Nina Grigsby MD Work Phone: [facility] 08-25-2023 14:55-0500 Diastolic blood pressure 70 mm[Hg] Nina Grigsby MD Work Phone: [facility] 08-25-2023 14:55-0500 Heart rate 67 /min Nina Grigsby MD Work Phone: [facility] 08-25-2023 14:55-0500 Respiratory rate 18 /min Nina Grigsby MD Work Phone: [facility] 08-25-2023 14:55-0500 Systolic blood pressure 136 mm[Hg] Nina Grigsby MD Work Phone: [facility] 06-30-2023 15:09-0500 Body height 168.3 cm Nina Grigsby MD Work Phone: [facility] 06-30-2023 15:09-0500 Body temperature 97.11 [degF] Nina Grigsby MD Work Phone: [facility] 06-30-2023 15:09-0500 Body weight 63.05 kg Nina Grigsby MD Work Phone: [facility] 06-30-2023 15:09-0500 Diastolic blood pressure 66 mm[Hg] Nina Grigsby MD Work Phone: [facility] 06-30-2023 15:09-0500 Heart rate 84 /min Nina Grigsby MD Work Phone: [facility] 06-30-2023 15:09-0500 Respiratory rate 16 /min Nina Grigsby MD Work Phone: [facility] 06-30-2023 15:09-0500 Systolic blood pressure 119 mm[Hg] Nina Grigsby MD Work Phone: [facility] 06-13-2023 09:34-0500 Body temperature 97 [degF] Estella Bundridge DRAWING IN MACHINE TENDER HELPER.ACCESS LEAD Work Phone: [facility] 06-13-2023 09:34-0500 Body weight 63.41 kg Estella Bundridge DRAWING IN MACHINE TENDER HELPER.ACCESS LEAD Work Phone: [facility] 06-13-2023 09:34-0500 Diastolic blood pressure 78 mm[Hg] Estella Bundridge DRAWING IN MACHINE TENDER HELPER.ACCESS LEAD Work Phone: [facility] 06-13-2023 09:34-0500 Heart rate 84 /min Estella Bundridge DRAWING IN MACHINE TENDER HELPER.ACCESS LEAD Work Phone: [facility] 06-13-2023 09:34-0500 Respiratory rate 18 /min Estella Bundridge DRAWING IN MACHINE TENDER HELPER.ACCESS LEAD Work Phone: [facility] 06-13-2023 09:34-0500 SaO2% (BldA) [Mass fraction] 98 % Estella Bundridge DRAWING IN MACHINE TENDER HELPER.ACCESS LEAD Work Phone: [facility] 06-13-2023 09:34-0500 Systolic blood pressure 139 mm[Hg] Estella Bundridge DRAWING IN MACHINE TENDER HELPER.ACCESS LEAD Work Phone: [facility] 06-02-2023 14:34-0500 Body height 168.3 cm Patricia Miller DRAWING IN MACHINE TENDER HELPER.ACCESS LEAD Work Phone: [facility] 06-02-2023 14:34-0500 Body temperature 97.59 [degF] Patricia Miller DRAWING IN MACHINE TENDER HELPER.ACCESS LEAD Work Phone: [facility] 06-02-2023 14:34-0500 Body weight 63.78 kg Patricia Miller DRAWING IN MACHINE TENDER HELPER.ACCESS LEAD Work Phone: [facility] 06-02-2023 14:34-0500 Diastolic blood pressure 101 mm[Hg] Patricia Miller DRAWING IN MACHINE TENDER HELPER.ACCESS LEAD Work Phone: [facility] 06-02-2023 14:34-0500 Heart rate 98 /min Patricia Miller DRAWING IN MACHINE TENDER HELPER.ACCESS LEAD Work Phone: [facility] 06-02-2023 14:34-0500 Respiratory rate 16 /min Patricia Mliler DRAWING IN MACHINE TENDER HELPER.ACCESS LEAD Work Phone: [facility] 06-02-2023 14:34-0500 SaO2% (BldA) [Mass fraction] 97 % Patricia Miller DRAWING IN MACHINE TENDER HELPER.ACCESS LEAD Work Phone: [facility] 06-02-2023 14:34-0500 Systolic blood pressure 160 mm[Hg] Patricia Miller DRAWING IN MACHINE TENDER HELPER.ACCESS LEAD Work Phone: [facility] 05-30-2023 11:11-0500 Body temperature 97.3 [degF] JC Limon MD Work Phone: [facility] 05-30-2023 11:11-0500 Body weight 64.32 kg JC Limon MD Work Phone: [facility] 05-30-2023 11:11-0500 Diastolic blood pressure 114 mm[Hg] JC Limon MD Work Phone: [facility] 05-30-2023 11:11-0500 Heart rate 70 /min JC Limon MD Work Phone: [facility] 05-30-2023 11:11-0500 Respiratory rate 16 /min JC Limon MD Work Phone: [facility] 05-30-2023 11:11-0500 SaO2% (BldA) [Mass fraction] 100 % JC Limon MD Work Phone: [facility] 05-30-2023 11:11-0500 Systolic blood pressure 172 mm[Hg] JC Limon MD Work Phone: [facility] 05-16-2023 08:51-0400 Body height 168.3 cm Estella Bundridge DRAWING IN MACHINE TENDER HELPER.ACCESS LEAD Work Phone: [facility] 05-16-2023 08:51-0400 Body temperature 97 [degF] Estella Bundridge DRAWING IN MACHINE TENDER HELPER.ACCESS LEAD Work Phone: [facility] 05-16-2023 08:51-0400 Body weight 63.14 kg Estella Bundridge DRAWING IN MACHINE TENDER HELPER.ACCESS LEAD Work Phone: [facility] 05-16-2023 08:51-0400 Diastolic blood pressure 85 mm[Hg] Estella Bundridge DRAWING IN MACHINE TENDER HELPER.ACCESS LEAD Work Phone: [facility] 05-16-2023 08:51-0400 Heart rate 85 /min Estella Bundridge DRAWING IN MACHINE TENDER HELPER.ACCESS LEAD Work Phone: [facility] 05-16-2023 08:51-0400 Respiratory rate 16 /min Estella Bundridge DRAWING IN MACHINE TENDER HELPER.ACCESS LEAD Work Phone: [facility] 05-16-2023 08:51-0400 SaO2% (BldA) [Mass fraction] 98 % Estella Bundridge DRAWING IN MACHINE TENDER HELPER.ACCESS LEAD Work Phone: [facility] 05-16-2023 08:51-0400 Systolic blood pressure 150 mm[Hg] Estella Bundridge DRAWING IN MACHINE TENDER HELPER.ACCESS LEAD Work Phone: [facility] 04-01-2023 12:53-0400 Diastolic blood pressure 101 mm[Hg] Patricia Miller DRAWING IN MACHINE TENDER HELPER.ACCESS LEAD Work Phone: [facility] 04-01-2023 12:53-0400 Heart rate 105 /min Patricia Miller DRAWING IN MACHINE TENDER HELPER.ACCESS LEAD Work Phone: [facility] 04-01-2023 12:53-0400 Systolic blood pressure 191 mm[Hg] Patricia Miller DRAWING IN MACHINE TENDER HELPER.ACCESS LEAD Work Phone: [facility] 04-01-2023 12:50-0400 Body height 168.3 cm Patricia Miller DRAWING IN MACHINE TENDER HELPER.ACCESS LEAD Work Phone: [facility] 04-01-2023 12:50-0400 Body temperature 97.81 [degF] Patricia Miller DRAWING IN MACHINE TENDER HELPER.ACCESS LEAD Work Phone: [facility] 04-01-2023 12:50-0400 Body weight 62.96 kg Patricia Miller DRAWING IN MACHINE TENDER HELPER.ACCESS LEAD Work Phone: [facility] 04-01-2023 12:50-0400 Respiratory rate 18 /min Patricia Miller DRAWING IN MACHINE TENDER HELPER.ACCESS LEAD Work Phone: [facility] 04-01-2023 12:50-0400 SaO2% (BldA) [Mass fraction] 98 % Patricia Miller DRAWING IN MACHINE TENDER HELPER.ACCESS LEAD Work Phone: [facility] 03-11-2023 13:40-0400 Body height 168.3 cm Nina Grigsby MD Work Phone: [facility] 03-11-2023 13:40-0400 Body temperature 97.59 [degF] Nina Grigsby MD Work Phone: [facility] 03-11-2023 13:40-0400 Body weight 62.14 kg Nina Grigsby MD Work Phone: [facility] 03-11-2023 13:40-0400 Diastolic blood pressure 74 mm[Hg] Nina Grigsby MD Work Phone: [facility] 03-11-2023 13:40-0400 Heart rate 75 /min Nina Grigsby MD Work Phone: [facility] 03-11-2023 13:40-0400 Respiratory rate 16 /min Nina Grigsby MD Work Phone: [facility] 03-11-2023 13:40-0400 SaO2% (BldA) [Mass fraction] 99 % Nina Grigsby MD Work Phone: [facility] 03-11-2023 13:40-0400 Systolic blood pressure 158 mm[Hg] Nina Grigsby MD Work Phone: [facility] 02-18-2023 16:06-0400 Diastolic blood pressure 97 mm[Hg] Chair Jose Work Phone: [facility] 02-18-2023 16:06-0400 Systolic blood pressure 183 mm[Hg] Chair Jose Work Phone: [facility] 02-18-2023 14:38-0400 Body height 168.3 cm Nina Grigsby MD Work Phone: [facility] 02-18-2023 14:38-0400 Body temperature 97.9 [degF] Nina Grigsby MD Work Phone: [facility] 02-18-2023 14:38-0400 Body weight 60.24 kg Nina Grigsby MD Work Phone: [facility] 02-18-2023 14:38-0400 Diastolic blood pressure 103 mm[Hg] Nina Grigsby MD Work Phone: [facility] 02-18-2023 14:38-0400 Heart rate 134 /min Nina Grigsby MD Work Phone: [facility] 02-18-2023 14:38-0400 Respiratory rate 16 /min Nina Grigsby MD Work Phone: [facility] 02-18-2023 14:38-0400 SaO2% (BldA) [Mass fraction] 98 % Nina Grigsby MD Work Phone: [facility] 02-18-2023 14:38-0400 Systolic blood pressure 161 mm[Hg] Nina Grigsby MD Work Phone: [facility] 01-03-2023 21:46-0400 Diastolic blood pressure 101 mm[Hg] MD Christina Azul Work Phone: [facility] 01-03-2023 21:46-0400 Heart rate 71 /min MD Christina Azul Work Phone: [facility] 01-03-2023 21:46-0400 Respiratory rate 18 /min MD Christina Azul Work Phone: [facility] 01-03-2023 21:46-0400 SaO2% (BldA) [Mass fraction] 98 % MD Christina Azul Work Phone: [facility] 01-03-2023 21:46-0400 Systolic blood pressure 173 mm[Hg] MD Christina Azul Work Phone: [facility] 01-03-2023 17:10-0400 Body height 170.18 cm MD Christina Azul Work Phone: [facility] 01-03-2023 17:10-0400 Body temperature 98.6 [degF] MD Christina Azul Work Phone: [facility] 01-03-2023 17:10-0400 Body weight 58.75 kg MD Christina Azul Work Phone: [facility] 12-17-2022 08:47-0400 Body height 168.3 cm Nina Grigsby MD Work Phone: [facility] 12-17-2022 08:47-0400 Body temperature 98.6 [degF] Nina Grigsby MD Work Phone: [facility] 12-17-2022 08:47-0400 Body weight 59.42 kg Nina Grigsby MD Work Phone: [facility] 12-17-2022 08:47-0400 Diastolic blood pressure 70 mm[Hg] Nina Grigsby MD Work Phone: [facility] 12-17-2022 08:47-0400 Heart rate 106 /min Nina Grigsby MD Work Phone: [facility] 12-17-2022 08:47-0400 Respiratory rate 16 /min Nina Grigsby MD Work Phone: [facility] 12-17-2022 08:47-0400 SaO2% (BldA) [Mass fraction] 96 % Nina Grigsby MD Work Phone: [facility] 12-17-2022 08:47-0400 Systolic blood pressure 122 mm[Hg] Nina Grigsby MD Work Phone: [facility] 11-25-2022 09:28-0400 Body height 168.3 cm Patricia Miller APRN.ACCESS LEAD Work Phone: [facility] 11-25-2022 09:28-0400 Body temperature 97.5 [degF] Patricia Miller APRN.ACCESS LEAD Work Phone: [facility] 11-25-2022 09:28-0400 Body weight 59.15 kg Patricia Miller APRN.ACCESS LEAD Work Phone: [facility] 11-25-2022 09:28-0400 Diastolic blood pressure 69 mm[Hg] Patricia Miller APRN.ACCESS LEAD Work Phone: [facility] 11-25-2022 09:28-0400 Heart rate 97 /min Patricia Miller APRN.ACCESS LEAD Work Phone: [facility] 11-25-2022 09:28-0400 Respiratory rate 16 /min Patriica Miller APRN.ACCESS LEAD Work Phone: [facility] 11-25-2022 09:28-0400 SaO2% (BldA) [Mass fraction] 99 % Patricia Miller APRN.ACCESS LEAD Work Phone: [facility] 11-25-2022 09:28-0400 Systolic blood pressure 108 mm[Hg] Patricia Miller APRN.ACCESS LEAD Work Phone: [facility] 11-20-2022 10:33-0400 Body temperature 97.7 [degF] JC Limon MD Work Phone: [facility] 11-20-2022 10:33-0400 Body weight 59.24 kg JC Limon MD Work Phone: [facility] 11-20-2022 10:33-0400 Diastolic blood pressure 73 mm[Hg] JC Limon MD Work Phone: [facility] 11-20-2022 10:33-0400 Heart rate 87 /min JC Limon MD Work Phone: [facility] 11-20-2022 10:33-0400 Respiratory rate 18 /min JC Limon MD Work Phone: [facility] 11-20-2022 10:33-0400 SaO2% (BldA) [Mass fraction] 97 % JC Limon MD Work Phone: [facility] 11-20-2022 10:33-0400 Systolic blood pressure 137 mm[Hg] JC Limon MD Work Phone: [facility] 11-18-2022 13:30-0400 Body height 168.3 cm Nina Grigsby MD Work Phone: [facility] 11-18-2022 13:30-0400 Body temperature 97.2 [degF] Nina Grigsby MD Work Phone: [facility] 11-18-2022 13:30-0400 Body weight 60.33 kg Nina Grigsby MD Work Phone: [facility] 11-18-2022 13:30-0400 Diastolic blood pressure 70 mm[Hg] Nina Grigsby MD Work Phone: [facility] 11-18-2022 13:30-0400 Heart rate 84 /min Nina Grigsby MD Work Phone: [facility] 11-18-2022 13:30-0400 Respiratory rate 16 /min Nina Grigsby MD Work Phone: [facility] 11-18-2022 13:30-0400 SaO2% (BldA) [Mass fraction] 100 % Nina Grigsby MD Work Phone: [facility] 11-18-2022 13:30-0400 Systolic blood pressure 124 mm[Hg] Nina Grigsby MD Work Phone: [facility] 11-11-2022 13:19-0400 Body height 168.3 cm Nina Grigsby MD Work Phone: [facility] 04-24-2023 13:19-0400 Body temperature 96.6 [degF] Nina Grigsby MD Work Phone: [facility] 11-11-2022 13:19-0400 Body weight 61.2 kg Nina Grigsby MD Work Phone: [facility] 11-11-2022 13:19-0400 Diastolic blood pressure 84 mm[Hg] Nina Grigsby MD Work Phone: [facility] 11-11-2022 13:19-0400 Heart rate 72 /min Nina Grigsby MD Work Phone: [facility] 11-11-2022 13:19-0400 Respiratory rate 18 /min Nina Grigsby MD Work Phone: [facility] 11-11-2022 13:19-0400 SaO2% (BldA) [Mass fraction] 96 % Nina Grigsby MD Work Phone: [facility] 11-11-2022 13:19-0400 Systolic blood pressure 162 mm[Hg] Nina Grigsby MD Work Phone: [facility] 11-04-2022 11:19-0400 Body temperature 97.7 [degF] JC Limon MD Work Phone: [facility] 11-04-2022 11:19-0400 Body weight 60.06 kg JC Limon MD Work Phone: [facility] 11-04-2022 11:19-0400 Diastolic blood pressure 84 mm[Hg] JC Limon MD Work Phone: [facility] 11-04-2022 11:19-0400 Heart rate 87 /min JC Limon MD Work Phone: [facility] 11-04-2022 11:19-0400 Respiratory rate 16 /min JC Limon MD Work Phone: [facility] 11-04-2022 11:19-0400 SaO2% (BldA) [Mass fraction] 95 % JC Limon MD Work Phone: [facility] 11-04-2022 11:19-0400 Systolic blood pressure 159 mm[Hg] JC Limon MD Work Phone: [facility] 10-31-2022 14:57-0400 Body height 168.3 cm Nina Grigsby MD Work Phone: [facility] 10-31-2022 14:57-0400 Body temperature 97.2 [degF] Nina Grigsby MD Work Phone: [facility] 10-31-2022 14:57-0400 Body weight 59.97 kg Nina Grigsby MD Work Phone: [facility] 10-31-2022 14:57-0400 Diastolic blood pressure 65 mm[Hg] Nina Grigsby MD Work Phone: [facility] 10-31-2022 14:57-0400 Heart rate 90 /min Nina Grigsby MD Work Phone: [facility] 10-31-2022 14:57-0400 Respiratory rate 16 /min Nina Grigsby MD Work Phone: [facility] 10-31-2022 14:57-0400 SaO2% (BldA) [Mass fraction] 100 % Nina Grigsby MD Work Phone: [facility] 10-31-2022 14:57-0400 Systolic blood pressure 114 mm[Hg] Nina Grigsby MD Work Phone: [facility] 10-21-2022 14:08-0400 Body height 168.3 cm Chair Mendez Work Phone: [facility] 10-21-2022 13:42-0400 Body height 169.5 cm JC Limon MD Work Phone: [facility] 10-21-2022 13:35-0400 Body height 169.7 cm Nina Grigsby MD Work Phone: [facility] 10-21-2022 13:35-0400 Body temperature 97.9 [degF] Nina Grigsby MD Work Phone: [facility] 10-21-2022 13:35-0400 Body weight 61.24 kg Nina Grigsby MD Work Phone: [facility] 10-21-2022 13:35-0400 Diastolic blood pressure 79 mm[Hg] Nina Grigsby MD Work Phone: [facility] 10-21-2022 13:35-0400 Heart rate 92 /min Nina Grigsby MD Work Phone: [facility] 10-21-2022 13:35-0400 Respiratory rate 16 /min Nina Grigsby MD Work Phone: [facility] 10-21-2022 13:35-0400 SaO2% (BldA) [Mass fraction] 97 % Nina Grigsby MD Work Phone: [facility] 10-21-2022 13:35-0400 Systolic blood pressure 129 mm[Hg] Nina Grigsby MD Work Phone: [facility] 10-15-2022 09:06-0400 Body height 167.6 cm Nina Grigsby MD Work Phone: [facility] 10-15-2022 09:06-0400 Body temperature 97 [degF] Nina Grigsby MD Work Phone: [facility] 10-15-2022 09:06-0400 Body weight 60.6 kg Nina Grigsby MD Work Phone: [facility] 10-15-2022 09:06-0400 Diastolic blood pressure 89 mm[Hg] Nina Grigsby MD Work Phone: [facility] 10-15-2022 09:06-0400 Heart rate 68 /min Nina Grigsby MD Work Phone: [facility] 10-15-2022 09:06-0400 Respiratory rate 16 /min Nina Grigsby MD Work Phone: [facility] 10-15-2022 09:06-0400 SaO2% (BldA) [Mass fraction] 94 % Nina Grigsby MD Work Phone: [facility] 10-15-2022 09:06-0400 Systolic blood pressure 158 mm[Hg] Nina Grigsby MD Work Phone: [facility] 09-23-2022 10:19-0500 Body height 167.6 cm Nina Grigsby MD Work Phone: [facility] 09-23-2022 10:19-0500 Body temperature 97.59 [degF] Nina Grigsby MD Work Phone: [facility] 09-23-2022 10:19-0500 Body weight 60.69 kg Nina Grigsby MD Work Phone: [facility] 09-23-2022 10:19-0500 Diastolic blood pressure 71 mm[Hg] Nina Grigsby MD Work Phone: [facility] 09-23-2022 10:19-0500 Heart rate 85 /min Nina Grigsby MD Work Phone: [facility] 09-23-2022 10:19-0500 Respiratory rate 16 /min Nina Grigsby MD Work Phone: [facility] 09-23-2022 10:19-0500 SaO2% (BldA) [Mass fraction] 96 % Nina Grigsby MD Work Phone: [facility] 09-23-2022 10:19-0500 Systolic blood pressure 113 mm[Hg] Nina Grigsby MD Work Phone: [facility] 08-20-2022 09:52-0500 Body height 167.6 cm Nina Grigsby MD Work Phone: [facility] 08-20-2022 09:52-0500 Body temperature 98.8 [degF] Nina Grigsby MD Work Phone: [facility] 08-20-2022 09:52-0500 Body weight 62.14 kg Nina Grigsby MD Work Phone: [facility] 08-20-2022 09:52-0500 Diastolic blood pressure 64 mm[Hg] Nina Grigsby MD Work Phone: [facility] 08-20-2022 09:52-0500 Heart rate 99 /min Nina Grigsby MD Work Phone: [facility] 08-20-2022 09:52-0500 Respiratory rate 16 /min Nina Grigsby MD Work Phone: [facility] 08-20-2022 09:52-0500 SaO2% (BldA) [Mass fraction] 96 % Nina Grigsby MD Work Phone: [facility] 08-20-2022 09:52-0500 Systolic blood pressure 122 mm[Hg] Nina Grigsby MD Work Phone: [facility] 06-25-2022 10:01-0500 Body height 167.6 cm Patricia Miller DRAWING IN MACHINE TENDER HELPER.ACCESS LEAD Work Phone: [facility] 06-25-2022 10:01-0500 Body temperature 97.9 [degF] Patricia Miller APRN.ACCESS LEAD Work Phone: [facility] 06-25-2022 10:01-0500 Body weight 59.97 kg Patricia Miller DRAWING IN MACHINE TENDER HELPER.ACCESS LEAD Work Phone: [facility] 06-25-2022 10:01-0500 Diastolic blood pressure 74 mm[Hg] Patricia Miller APRN.ACCESS LEAD Work Phone: [facility] 06-25-2022 10:01-0500 Heart rate 101 /min Patricia Miller APRN.ACCESS LEAD Work Phone: [facility] 06-25-2022 10:01-0500 Respiratory rate 16 /min Patricia Miller APRN.ACCESS LEAD Work Phone: [facility] 06-25-2022 10:01-0500 SaO2% (BldA) [Mass fraction] 94 % Patricia Miller APRN.ACCESS LEAD Work Phone: [facility] 06-25-2022 10:01-0500 Systolic blood pressure 139 mm[Hg] Patricia Miller DRAWING IN MACHINE TENDER HELPER.ACCESS LEAD Work Phone: [facility] 04-22-2022 11:27-0400 Body temperature 96.91 [degF] JC Limon MD Work Phone: [facility] 04-22-2022 11:27-0400 Body weight 60.33 kg JC Limon MD Work Phone: [facility] 04-22-2022 11:27-0400 Diastolic blood pressure 90 mm[Hg] JC Limon MD Work Phone: [facility] 04-22-2022 11:27-0400 Heart rate 103 /min JC Limon MD Work Phone: [facility] 04-22-2022 11:27-0400 Respiratory rate 18 /min JC Limon MD Work Phone: [facility] 04-22-2022 11:27-0400 SaO2% (BldA) [Mass fraction] 100 % JC Limon MD Work Phone: [facility] 04-22-2022 11:27-0400 Systolic blood pressure 169 mm[Hg] JC Limon MD Work Phone: [facility] 04-15-2022 09:12-0400 Body temperature 96.69 [degF] JC Limon MD Work Phone: [facility] 04-15-2022 09:12-0400 Body weight 58.97 kg JC Limon MD Work Phone: [facility] 04-15-2022 09:12-0400 Diastolic blood pressure 87 mm[Hg] JC Limon MD Work Phone: [facility] 04-15-2022 09:12-0400 Heart rate 90 /min JC Limon MD Work Phone: [facility] 04-15-2022 09:12-0400 Respiratory rate 18 /min JC Limon MD Work Phone: [facility] 04-15-2022 09:12-0400 SaO2% (BldA) [Mass fraction] 100 % JC Limon MD Work Phone: [facility] 04-15-2022 09:12-0400 Systolic blood pressure 143 mm[Hg] JC Limon MD Work Phone: [facility] 04-08-2022 09:15-0400 Body temperature 97.39 [degF] JC Limon MD Work Phone: [facility] 04-08-2022 09:15-0400 Body weight 54.88 kg JC Limon MD Work Phone: [facility] 04-08-2022 09:15-0400 Diastolic blood pressure 79 mm[Hg] JC Limon MD Work Phone: [facility] 04-08-2022 09:15-0400 Heart rate 101 /min JC Limon MD Work Phone: [facility] 04-08-2022 09:15-0400 Respiratory rate 16 /min JC Limon MD Work Phone: [facility] 04-08-2022 09:15-0400 SaO2% (BldA) [Mass fraction] 100 % JC Limon MD Work Phone: [facility] 04-08-2022 09:15-0400 Systolic blood pressure 159 mm[Hg] JC Limon MD Work Phone: [facility] 04-01-2022 09:48-0400 Body temperature 97.39 [degF] JC Limon MD Work Phone: [facility] 04-01-2022 09:48-0400 Body weight 58.97 kg JC Limon MD Work Phone: [facility] 04-01-2022 09:48-0400 Heart rate 98 /min JC Limon MD Work Phone: [facility] 04-01-2022 09:48-0400 SaO2% (BldA) [Mass fraction] 100 % JC Limon MD Work Phone: [facility] 03-26-2022 08:50-0400 Body temperature 97.5 [degF] JC Limon MD Work Phone: [facility] 03-26-2022 08:50-0400 Body weight 58.97 kg JC Limon MD Work Phone: [facility] 03-26-2022 08:50-0400 Diastolic blood pressure 62 mm[Hg] JC Limon MD Work Phone: [facility] 03-26-2022 08:50-0400 Heart rate 92 /min JC Limon MD Work Phone: [facility] 03-26-2022 08:50-0400 Respiratory rate 16 /min JC Limon MD Work Phone: [facility] 03-26-2022 08:50-0400 SaO2% (BldA) [Mass fraction] 99 % JC Limon MD Work Phone: [facility] 03-26-2022 08:50-0400 Systolic blood pressure 114 mm[Hg] JC Limon MD Work Phone: [facility] 03-19-2022 09:20-0400 Body height 167.6 cm Patricia Miller APRN.ACCESS LEAD Work Phone: [facility] 03-19-2022 09:20-0400 Body temperature 97.59 [degF] Patricia Miller APRN.ACCESS LEAD Work Phone: [facility] 03-19-2022 09:20-0400 Body weight 59.51 kg Patricia Miller APRN.ACCESS LEAD Work Phone: [facility] 03-19-2022 09:20-0400 Diastolic blood pressure 78 mm[Hg] Patricia Miller APRN.ACCESS LEAD Work Phone: [facility] 03-19-2022 09:20-0400 Heart rate 90 /min Patricia Miller APRN.ACCESS LEAD Work Phone: [facility] 03-19-2022 09:20-0400 Respiratory rate 16 /min Patricia Miller APRN.ACCESS LEAD Work Phone: [facility] 03-19-2022 09:20-0400 SaO2% (BldA) [Mass fraction] 97 % Patricia Miller APRN.ACCESS LEAD Work Phone: [facility] 03-19-2022 09:20-0400 Systolic blood pressure 117 mm[Hg] Patricia Miller APRN.ACCESS LEAD Work Phone: [facility] 02-20-2022 14:20-0400 Body height 167.6 cm Patricia Miller APRN.ACCESS LEAD Work Phone: [facility] 02-20-2022 14:20-0400 Body temperature 97.2 [degF] Patricia Miller APRN.ACCESS LEAD Work Phone: [facility] 02-20-2022 14:20-0400 Body weight 59.88 kg Patricia Miller APRN.ACCESS LEAD Work Phone: [facility] 02-20-2022 14:20-0400 Diastolic blood pressure 60 mm[Hg] Patricia Miller APRN.ACCESS LEAD Work Phone: [facility] 02-20-2022 14:20-0400 Heart rate 108 /min Patricia Miller APRN.ACCESS LEAD Work Phone: [facility] 02-20-2022 14:20-0400 Respiratory rate 16 /min Patricia Miller APRN.ACCESS LEAD Work Phone: [facility] 02-20-2022 14:20-0400 SaO2% (BldA) [Mass fraction] 98 % Patricia Miller APRN.ACCESS LEAD Work Phone: [facility] 02-20-2022 14:20-0400 Systolic blood pressure 95 mm[Hg] Patricia Miller APRN.ACCESS LEAD Work Phone: [facility] 02-07-2022 15:33-0400 Body height 167.6 cm Patricia Miller APRN.ACCESS LEAD Work Phone: [facility] 02-07-2022 15:33-0400 Body temperature 97.59 [degF] Patricia Miller APRN.ACCESS LEAD Work Phone: [facility] 02-07-2022 15:33-0400 Body weight 59.42 kg Patricia Miller DRAWING IN MACHINE TENDER HELPER.ACCESS LEAD Work Phone: [facility] 02-07-2022 15:33-0400 Diastolic blood pressure 59 mm[Hg] Patricia Miller DRAWING IN MACHINE TENDER HELPER.ACCESS LEAD Work Phone: [facility] 02-07-2022 15:33-0400 Heart rate 110 /min Patricia Miller DRAWING IN MACHINE TENDER HELPER.ACCESS LEAD Work Phone: [facility] 02-07-2022 15:33-0400 Respiratory rate 16 /min Patricia Miller DRAWING IN MACHINE TENDER HELPER.ACCESS LEAD Work Phone: [facility] 02-07-2022 15:33-0400 SaO2% (BldA) [Mass fraction] 98 % Patricia Miller DRAWING IN MACHINE TENDER HELPER.ACCESS LEAD Work Phone: [facility] 02-07-2022 15:33-0400 Systolic blood pressure 110 mm[Hg] Patricia Miller DRAWING IN MACHINE TENDER HELPER.ACCESS LEAD Work Phone: [facility] 01-30-2022 15:11-0400 Body temperature 96.69 [degF] JC Limon MD Work Phone: [facility] 01-30-2022 15:11-0400 Body weight 60.33 kg JC Limon MD Work Phone: [facility] 01-30-2022 15:11-0400 Diastolic blood pressure 67 mm[Hg] JC Limon MD Work Phone: [facility] 01-30-2022 15:11-0400 Heart rate 91 /min JC Limon MD Work Phone: [facility] 01-30-2022 15:11-0400 SaO2% (BldA) [Mass fraction] 100 % JC Limon MD Work Phone: [facility] 01-30-2022 15:11-0400 Systolic blood pressure 106 mm[Hg] JC Limon MD Work Phone: [facility] 01-29-2022 08:42-0400 Body height 167.6 cm Verito Whelan MD Work Phone: [facility] 01-29-2022 08:42-0400 Body temperature 97.39 [degF] Verito Whelan MD Work Phone: [facility] 01-29-2022 08:42-0400 Body weight 58.8 kg Verito Whelan MD Work Phone: [facility] 01-29-2022 08:42-0400 Diastolic blood pressure 64 mm[Hg] Verito Whelan MD Work Phone: [facility] 01-29-2022 08:42-0400 Heart rate 60 /min Verito Whelan MD Work Phone: [facility] 01-29-2022 08:42-0400 SaO2% (BldA) [Mass fraction] 94 % Verito Whelan MD Work Phone: [facility] 01-29-2022 08:42-0400 Systolic blood pressure 139 mm[Hg] Verito Whelan MD Work Phone: [facility] 01-22-2022 13:39-0400 Body height 168.8 cm Nina Grigsby MD Work Phone: [facility] 01-22-2022 13:39-0400 Body temperature 98.01 [degF] Nina Grigsby MD Work Phone: [facility] 01-22-2022 13:39-0400 Body weight 59.78 kg Nina Grigsby MD Work Phone: [facility] 01-22-2022 13:39-0400 Diastolic blood pressure 61 mm[Hg] Nina Grigsby MD Work Phone: [facility] 01-22-2022 13:39-0400 Heart rate 90 /min Nina Grigsby MD Work Phone: [facility] 01-22-2022 13:39-0400 Respiratory rate 18 /min Nina Grigsby MD Work Phone: [facility] 01-22-2022 13:39-0400 SaO2% (BldA) [Mass fraction] 100 % Nina Grigsby MD Work Phone: [facility] 01-22-2022 13:39-0400 Systolic blood pressure 110 mm[Hg] Nina Grigsby MD Work Phone: [facility] 01-14-2022 08:21-0400 Body height 168.8 cm Nina Grigsby MD Work Phone: [facility] 01-14-2022 08:21-0400 Body temperature 97.2 [degF] Nina Grigsby MD Work Phone: [facility] 01-14-2022 08:21-0400 Body weight 60.24 kg Nina Grigsby MD Work Phone: [facility] 01-14-2022 08:21-0400 Diastolic blood pressure 65 mm[Hg] Nnia Grigsby MD Work Phone: [facility] 01-14-2022 08:21-0400 Heart rate 85 /min Nina Grigsby MD Work Phone: [facility] 01-14-2022 08:21-0400 Respiratory rate 16 /min Nina Grigsby MD Work Phone: [facility] 01-14-2022 08:21-0400 SaO2% (BldA) [Mass fraction] 99 % Nina Grigsby MD Work Phone: [facility] 01-14-2022 08:21-0400 Systolic blood pressure 123 mm[Hg] Nina Grigsby MD Work Phone: [facility] 12-24-2021 09:26-0400 Body height 168.8 cm Nina Grigsby MD Work Phone: [facility] 12-24-2021 09:26-0400 Body temperature 97.81 [degF] Nina Grigsby MD Work Phone: [facility] 12-24-2021 09:26-0400 Body weight 61.05 kg Nina Grigsby MD Work Phone: [facility] 12-24-2021 09:26-0400 Diastolic blood pressure 70 mm[Hg] Nina Grigsby MD Work Phone: [facility] 12-24-2021 09:26-0400 Heart rate 81 /min Nina Grigsby MD Work Phone: [facility] 12-24-2021 09:26-0400 Respiratory rate 16 /min Nina Grigsby MD Work Phone: [facility] 12-24-2021 09:26-0400 SaO2% (BldA) [Mass fraction] 100 % Nina Grigsby MD Work Phone: [facility] 12-24-2021 09:26-0400 Systolic blood pressure 120 mm[Hg] Nina Grigsby MD Work Phone: [facility] 12-03-2021 09:29-0400 Body height 168.8 cm Yusef Jessica PA-C Work Phone: [facility] 12-03-2021 09:29-0400 Body temperature 97.81 [degF] Yusef Jessica PA-C Work Phone: [facility] 12-03-2021 09:29-0400 Body weight 59.69 kg Yusef Jessica PA-C Work Phone: [facility] 12-03-2021 09:29-0400 Diastolic blood pressure 63 mm[Hg] Yusef Jessica PA-C Work Phone: [facility] 12-03-2021 09:29-0400 Heart rate 92 /min Yusef Jessica PA-C Work Phone: [facility] 12-03-2021 09:29-0400 Respiratory rate 16 /min Yusef Jessica PA-C Work Phone: [facility] 12-03-2021 09:29-0400 SaO2% (BldA) [Mass fraction] 98 % Yusef Jessica PA-C Work Phone: [facility] 12-03-2021 09:29-0400 Systolic blood pressure 125 mm[Hg] Yusef Pandya PA-C Work Phone: [facility] 11-30-2021 10:29-0400 Body height 168.8 cm Patricia Miller DRAWING IN MACHINE TENDER HELPER.ACCESS LEAD Work Phone: [facility] 11-30-2021 10:29-0400 Body temperature 97.3 [degF] Patricia Miller DRAWING IN MACHINE TENDER HELPER.ACCESS LEAD Work Phone: [facility] 11-30-2021 10:29-0400 Body weight 58.24 kg Patricia Miller DRAWING IN MACHINE TENDER HELPER.ACCESS LEAD Work Phone: [facility] 11-30-2021 10:29-0400 Diastolic blood pressure 55 mm[Hg] Patricia Miller DRAWING IN MACHINE TENDER HELPER.ACCESS LEAD Work Phone: [facility] 11-30-2021 10:29-0400 Heart rate 90 /min Patricia Miller APRN.ACCESS LEAD Work Phone: [facility] 11-30-2021 10:29-0400 Respiratory rate 16 /min Patricia Miller APRN.ACCESS LEAD Work Phone: [facility] 11-30-2021 10:29-0400 SaO2% (BldA) [Mass fraction] 98 % Patricia Miller APRN.ACCESS LEAD Work Phone: [facility] 11-30-2021 10:29-0400 Systolic blood pressure 95 mm[Hg] Patricia Miller DRAWING IN MACHINE TENDER HELPER.ACCESS LEAD Work Phone: [facility] 11-26-2021 09:24-0400 Body height 168.8 cm Nina Grigsby MD Work Phone: [facility] 11-26-2021 09:24-0400 Body temperature 97.5 [degF] Nina Grigsby MD Work Phone: [facility] 11-26-2021 09:24-0400 Body weight 59.06 kg Nina Grigsby MD Work Phone: [facility] 11-26-2021 09:24-0400 Diastolic blood pressure 65 mm[Hg] Nina Grigsby MD Work Phone: [facility] 11-26-2021 09:24-0400 Heart rate 75 /min Nina Grigsby MD Work Phone: [facility] 11-26-2021 09:24-0400 Respiratory rate 16 /min Nina Grigsby MD Work Phone: [facility] 11-26-2021 09:24-0400 SaO2% (BldA) [Mass fraction] 100 % Nina Grigsby MD Work Phone: [facility] 11-26-2021 09:24-0400 Systolic blood pressure 111 mm[Hg] Nina Grigsby MD Work Phone: [facility] 11-21-2021 15:10-0400 Body temperature 98.6 [degF] Chair Bottineau Work Phone: [facility] 11-21-2021 15:10-0400 Diastolic blood pressure 65 mm[Hg] Chair Bottineau Work Phone: [facility] 11-21-2021 15:10-0400 Heart rate 78 /min Chair Bottineau Work Phone: [facility] 11-21-2021 15:10-0400 Respiratory rate 16 /min Chair Jose Work Phone: [facility] 11-21-2021 15:10-0400 SaO2% (BldA) [Mass fraction] 99 % Chair Bottineau Work Phone: [facility] 11-21-2021 15:10-0400 Systolic blood pressure 119 mm[Hg] Chair Jose Work Phone: [facility] 11-19-2021 10:41-0400 Diastolic blood pressure 71 mm[Hg] Chair Jose Work Phone: [facility] 11-19-2021 10:41-0400 Systolic blood pressure 123 mm[Hg] Chair Bottineau Work Phone: [facility] 11-19-2021 09:20-0400 Body temperature 98.4 [degF] Chair Bottineau Work Phone: [facility] 11-19-2021 09:20-0400 Heart rate 90 /min Chair Jose Work Phone: [facility] 11-19-2021 09:20-0400 Respiratory rate 18 /min Chair Jose Work Phone: [facility] 11-19-2021 09:20-0400 SaO2% (BldA) [Mass fraction] 99 % Chair Jose Work Phone: [facility] 11-16-2021 10:13-0400 Diastolic blood pressure 95 mm[Hg] Chair Bottineau Work Phone: [facility] 11-16-2021 10:13-0400 Systolic blood pressure 170 mm[Hg] Chair Bottineau Work Phone: [facility] 11-16-2021 09:02-0400 Body temperature 97.39 [degF] Chair Jose Work Phone: [facility] 11-16-2021 09:02-0400 Heart rate 63 /min Chair Bottineau Work Phone: [facility] 11-16-2021 09:02-0400 Respiratory rate 18 /min Chair Bottineau Work Phone: [facility] 11-16-2021 09:02-0400 SaO2% (BldA) [Mass fraction] 99 % Chair Bottineau Work Phone: [facility] 11-15-2021 14:36-0400 Body temperature 97 [degF] Chair Jose Work Phone: [facility] 11-15-2021 14:36-0400 Diastolic blood pressure 74 mm[Hg] Chair Bottineau Work Phone: [facility] 11-15-2021 14:36-0400 Heart rate 65 /min Chair Jose Work Phone: [facility] 11-15-2021 14:36-0400 Respiratory rate 18 /min Chair Bottineau Work Phone: [facility] 11-15-2021 14:36-0400 SaO2% (BldA) [Mass fraction] 99 % Chair Bottineau Work Phone: [facility] 11-15-2021 14:36-0400 Systolic blood pressure 137 mm[Hg] Chair Jose Work Phone: [facility] 11-13-2021 11:36-0400 Diastolic blood pressure 69 mm[Hg] Chair Bottineau Work Phone: [facility] 11-13-2021 11:36-0400 Heart rate 70 /min Chair Bottineau Work Phone: [facility] 11-13-2021 11:36-0400 Respiratory rate 18 /min Chair Bottineau Work Phone: [facility] 11-13-2021 11:36-0400 SaO2% (BldA) [Mass fraction] 99 % Chair Bottineau Work Phone: [facility] 11-13-2021 11:36-0400 Systolic blood pressure 116 mm[Hg] Chair Jose Work Phone: [facility] 11-05-2021 08:52-0400 Body height 168.8 cm Patricia Miller APRN.ACCESS LEAD Work Phone: [facility] 11-05-2021 08:52-0400 Body temperature 97.3 [degF] Patricia Miller APRN.ACCESS LEAD Work Phone: [facility] 11-05-2021 08:52-0400 Body weight 58.6 kg Patricia Miller APRN.ACCESS LEAD Work Phone: [facility] 11-05-2021 08:52-0400 Diastolic blood pressure 66 mm[Hg] Patricia Miller APRN.ACCESS LEAD Work Phone: [facility] 11-05-2021 08:52-0400 Heart rate 93 /min Patricia Miller APRN.ACCESS LEAD Work Phone: [facility] 11-05-2021 08:52-0400 Respiratory rate 16 /min Patricia Miller APRN.ACCESS LEAD Work Phone: [facility] 11-05-2021 08:52-0400 SaO2% (BldA) [Mass fraction] 98 % Patricia Miller APRN.ACCESS LEAD Work Phone: [facility] 11-05-2021 08:52-0400 Systolic blood pressure 115 mm[Hg] Patricia Miller APRN.ACCESS LEAD Work Phone: [facility] 10-24-2021 14:18-0400 Body temperature 97.39 [degF] JC Limon MD Work Phone: [facility] 10-24-2021 14:18-0400 Body weight 58.51 kg CJ Limon MD Work Phone: [facility] 10-24-2021 14:18-0400 Diastolic blood pressure 67 mm[Hg] JC Limon MD Work Phone: [facility] 10-24-2021 14:18-0400 Heart rate 101 /min JC Limon MD Work Phone: [facility] 10-24-2021 14:18-0400 Respiratory rate 16 /min JC Limon MD Work Phone: [facility] 10-24-2021 14:18-0400 SaO2% (BldA) [Mass fraction] 98 % JC Limon MD Work Phone: [facility] 10-24-2021 14:18-0400 Systolic blood pressure 111 mm[Hg] JC Limon MD Work Phone: [facility] 10-19-2021 09:58-0400 Body height 168.8 cm Renetta Ponce MD Work Phone: [facility] 10-19-2021 09:58-0400 Body temperature 97.59 [degF] Renetta Ponce MD Work Phone: [facility] 10-19-2021 09:58-0400 Body weight 58.33 kg Renetta Ponce MD Work Phone: [facility] 10-19-2021 09:58-0400 Diastolic blood pressure 72 mm[Hg] Renetta Ponce MD Work Phone: [facility] 10-19-2021 09:58-0400 Heart rate 98 /min Renetta Ponce MD Work Phone: [facility] 10-19-2021 09:58-0400 Respiratory rate 20 /min Renetta Ponce MD Work Phone: [facility] 10-19-2021 09:58-0400 SaO2% (BldA) [Mass fraction] 100 % Renetta Ponce MD Work Phone: [facility] 10-19-2021 09:58-0400 Systolic blood pressure 127 mm[Hg] Renetta Ponce MD Work Phone: [facility] 10-11-2021 15:44-0400 Body height 170.2 cm Aracelis Carrillo APRN.ACCESS LEAD Work Phone: [facility] 10-11-2021 15:44-0400 Body temperature 98.71 [degF] Aracelis Rehmans DRAWING IN MACHINE TENDER HELPER.ACCESS LEAD Work Phone: [facility] 10-11-2021 15:44-0400 Body weight 58.97 kg Aracelis Carrillo DRAWING IN MACHINE TENDER HELPER.ACCESS LEAD Work Phone: [facility] 10-11-2021 15:44-0400 Diastolic blood pressure 58 mm[Hg] Aracelis Carrillo DRAWING IN MACHINE TENDER HELPER.ACCESS LEAD Work Phone: [facility] 10-11-2021 15:44-0400 Heart rate 85 /min Aracelis Carrillo DRAWING IN MACHINE TENDER HELPER.ACCESS LEAD Work Phone: [facility] 10-11-2021 15:44-0400 SaO2% (BldA) [Mass fraction] 98 % Aracelis Carrillo DRAWING IN MACHINE TENDER HELPER.ACCESS LEAD Work Phone: [facility] 10-11-2021 15:44-0400 Systolic blood pressure 99 mm[Hg] Aracelis Wegas DRAWING IN MACHINE TENDER HELPER.ACCESS LEAD Work Phone: [facility] Encounters Encounter Date Encounter Type Care Provider Facility Start: 04-19-2024 End: 04-20-2024 Refill Estella Fish APRN.ACCESS LEAD Work Phone: Hematology/Oncology Comment on above: Refill Request Start: 04-19-2024 End: 04-19-2024 Telephone encounter Julieth Tapia peer tutor Services Comment on above: Care Coordination Start: [...] Up Appointment) Start: 03-31-2024 End: 04-06-2024 ambulatory GRANITE COUNTERTOP INSTALLER Enrique Esposito Facility:[id number] Start: 03-28-2024 End: 03-29-2024 Refill Estella Fish APRN.ACCESS LEAD Work Phone: Hematology/Oncology Comment on above: Refill Request Start: 03-19-2024 End: 03-20-2024 ambulatory Jair Magdalena Facility:[facility] Start: 03-19-2024 End: 03-20-2024 Evaluation and management of inpatient [facility] [place] [facility] Work Phone: Start: 03-19-2024 End: 03-20-2024 observation encounter NON STAFF [facility] Work Phone: Start: 03-19-2024 End: 03-19-2024 Emergency department patient visit [facility] Work Phone: Start: 03-18-2024 End: 03-18-2024 Emergency department patient visit [facility] Work Phone: Start: 03-18-2024 End: 04-06-2024 [...] End: 03-17-2024 ambulatory ESTELLA FISH Facility:[facility] Start: 03-17-2024 End: 03-17-2024 Nutrition therapy Estella J Claudia DRAWING IN MACHINE TENDER HELPER.ACCESS LEAD Work Phone: Palliative Medicine Comment on above: Encounter for pallia tive care (Primary Dx); Neuropathy due to chemotherapeutic drug (HCC); Neoplasm related pain; Chronic left shoulder pain; Malignant neoplasm of upper lobe of left lung (HCC); Nausea; Weight loss, unintentional; Protein-calorie malnutrition, unspecified severity (HCC); Anxiety Start: 03-17-2024 End: 03-17-2024 Telemedicine consultation with patient Estella Poloanay DRAWING IN MACHINE TENDER HELPER.ACCESS LEAD Work Phone: Palliative Medicine Start: 03-17-2024 End: 03-17-2024 ambulatory GRANITE COUNTERTOP INSTALLER Enrique Esposito Facility:[facility] Start: 03-15-2024 End: 03-15-2024 Telephone encounter Denita Rai RN Work Phone: Hematology/Oncology Comment on above: Care Coordination (A ppointment Questions) Start: 03-15-2024 End: 03-15-2024 ambulatory NINA GRIGSBY Facility:[facility] Start: 03-15-2024 End: 03-15-2024 Patient encounter procedure Merary Lucas MD Work Phone: Pulmonary Medicine Comment on above: Centrilobular emphys luke (HCC) (Primary Dx); Malignant neoplasm of upper lobe of left lung (HCC); Coronary artery disease involving knik coronary artery of knik heart without angina pectoris; PAD (peripheral artery [...] [C34.92] Start: 03-01-2024 Telephone encounter Estella Fish APRN.ACCESS LEAD Work Phone: Palliative Medicine Comment on above: Refill Request Start: 03-01-2024 End: 03-01-2024 ambulatory GRANITE COUNTERTOP INSTALLER Enrique Esposito Facility:[facility] Start: 02-24-2024 End: 03-10-2024 Telephone encounter [...] 02-07-2024 End: 02-07-2024 Emergency department patient visit [facility] Work Phone: Start: 02-06-2024 End: 02-06-2024 ambulatory GRANITE COUNTERTOP INSTALLER Enrique L Cate Facility:[facility] Start: 02-04-2024 Refill Nian Grigsby MD Work Phone: [facility] Comment on above: Refill Request Start: 02-03-2024 Telephone encounter Yusef Spicer sser PA-C 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 ) Start: 01-12-2024 End: 01-12-2024 ambulatory GRANITE COUNTERTOP INSTALLER Enrique L Cate Facility:[facility] Start: 01-09-2024 Telephone encounter Bernadine Rodriguez RN Work Phone: Hematology/Oncology Comment on above: Care Coordination (i nsomnia) Start: 01-08-2024 End: 01-08-2024 ambulatory GRANITE COUNTERTOP INSTALLER Enrique Esposito Facility:[facility] [place] Start: 12-26-2023 Telephone encounter Julieth Tapia peer tutor Services Comment on above: Care Coordination (P [...] Start: 12-23-2023 End: 12-23-2023 ambulatory ENRIQUE SALAZARAB Facility:[facility] Start: 12-22-2023 End: 12-22-2023 Patient encounter procedure Hector Limon MD Work Phone: Radiation Oncology Comment on above: Malignant neoplasm o f upper lobe of left lung (HCC) (Primary Dx) Start: 12-22-2023 End: 12-22-2023 ambulatory ENRIQUE ESPOSITO Facility:[facility] Start: 12-19-2023 End: 12-19-2023 ambulatory Hector LIMON Facility:[facility] Start: 12-18-2023 End: 12-18-2023 ambulatory Hector DOSHIEVA Facility:[facility] Start: 12-17-2023 End: 12-17-2023 ambulatory Hector LIMON Facility:[facility] Start: 12-16-2023 End: 12-16-2023 ambulatory ENRIQUE ESPOSITO Facility:[facility] Start: 12-16-2023 End: 12-16-2023 Patient encounter procedure Hector Limon MD Work Phone: Radiation Oncology Comment on above: Malignant neoplasm o f upper lobe of left lung (HCC) (Primary Dx) Start: 12-16-2023 Telephone encounter Estella Fish APRN.ACCESS LEAD Work Phone: Radiation Oncology Comment on above: Patient Update; Medi cation Problem Start: 12-12-2023 End: 12-12-2023 ambulatory Hector DAVISMarcella Facility:[facility] Start: 12-11-2023 End: 12-11-2023 ambulatory Hector DOSHIEVA Facility:[facility] Start: 12-10-2023 End: 12-10-2023 ambulatory Hector LIMON Facility:[facility] Start: 12-10-2023 End: 12-10-2023 Patient [...] Planning Start: 12-03-2023 Telephone encounter Estella Fish APRN.ACCESS LEAD Work Phone: Radiation Oncology Comment on above: Patient Update Start: 12-03-2023 End: 12-03-2023 Subsequent hospital visit by physician Hector Limon MD Work Phone: Radiology [facility] Comment on above: Malignant neoplasm o f upper lobe of left lung (HCC) [C34.12] Start: 12-03-2023 End: 12-04-2023 ambulatory ENRIQUE RAMOS CATE Facility:[facility] Start: 12-02-2023 End: 12-02-2023 ambulatory [...] Comment on above: Research (IRB [id number] Informed Consent) Start: 11-25-2023 End: 11-26-2023 ambulatory [...] End: 11-21-2023 ambulatory ESTELLA FISH Facility:[facility] Start: 11-21-2023 End: 11-21-2023 Patient encounter procedure Estella Fish DRAWING IN MACHINE TENDER HELPER.ACCESS LEAD Work Phone: Palliative Medicine Comment on above: [...] LFTs Start: 10-21-2023 Telephone encounter Estella Fish APRN.ACCESS LEAD Work Phone: Hematology/Oncology Comment on above: Pain Start: 10-21-2023 End: 10-21-2023 ambulatory NINA GRIGSBY Facility:[facility] Start: 10-21-2023 End: 10-21-2023 Subsequent [...] emphysema (HCC) Start: 10-15-2023 End: 10-15-2023 ambulatory GRANITE COUNTERTOP INSTALLER [facility] L Cate [facility] Start: 10-08-2023 End: 10-08-2023 ambulatory GRANITE COUNTERTOP INSTALLER [facility] L [facility] Start: 09-22-2023 End: 09-22-2023 Nutrition therapy Dominique [...] End: 09-15-2023 ambulatory NINA GRIGSBY Facility:[facility] Start: 09-15-2023 End: 09-15-2023 Subsequent hospital visit by physician Arrival Time Radiology Work Phone: Radiology [facility] Comment on above: 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] Start: 09-02-2023 End: 09-02-2023 ambulatory GRANITE COUNTERTOP INSTALLER Enrique L Cate Facility:[facility] Start: 08-26-2023 Telephone encounter Denita rushing [...] associated pain Start: 08-20-2023 End: 08-20-2023 ambulatory GRANITE COUNTERTOP INSTALLER Enrique L Cate Facility:[facility] [place] Start: 08-15-2023 End: 08-15-2023 ambulatory ESTELLA FISH Facility:[facility] Start: 07-28-2023 End: 07-28-2023 ambulatory PATRICIA MILLER Facility:[facility] Start: 07-23-2023 End: 07-23-2023 ambulatory GRANITE COUNTERTOP INSTALLER Enrique L Cate Facility:[facility] Start: 07-09-2023 End: 07-09-2023 ambulatory GRANITE COUNTERTOP INSTALLER Enrique L Cate Facility:[facility] Start: 06-30-2023 End: 06-30-2023 Patient encounter procedure Nina Grigsby MD Work Phone: [facility] Start: 06-30-2023 End: 07-01-2023 ambulatory Nina Grigsby MD Work Phone: Hematology/Oncology Comment on above: 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); Tonsillar mass; Primary hypertension; Centrilobular emphysema (HCC); Coronary artery disease involving knik coronary artery of knik heart without angina pectoris; Hypothyroidism due to medication; Cancer related pain Start: 06-24-2023 End: 06-24-2023 ambulatory CHRISTINA AZUL Facility:[facility] Start: 06-23-2023 End: 06-23-2023 ambulatory Hector LIMON Facility:[facility] Start: 06-20-2023 End: 06-20-2023 ambulatory CHRISTINA AZUL Facility:[facility] Start: 06-19-2023 End: 06-19-2023 ambulatory CHRISTINA AZUL Facility:[facility] Start: 06-18-2023 End: 06-18-2023 ambulatory NYDIA PARKS Facility:[facility] Start: 06-13-2023 End: 06-13-2023 ambulatory ESTELLA FISH Facility:[facility] Start: 06-13-2023 End: 06-13-2023 Patient encounter procedure Estella Fish DRAWING IN MACHINE TENDER HELPER.ACCESS LEAD Work Phone: Palliative Medicine Comment on above: Palliative care by s pecialist (Primary Dx); 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); Cancer related pain; Opioid contract exists; Insomnia due to medical condition; Anorexia; Protein-calorie malnutrition, unspecified severity (HCC); Nausea Start: 06-10-2023 End: 06-10-2023 Patient encounter procedure [facility] Provider [facility] Department Comment on above: Oropharnyx cancer (H CC) (Primary Dx) Start: 06-10-2023 Radiation Oncology Note Hector Limon MD Work Phone: Radiation Oncology Comment on above: Simulation Note Treatment Planning Start: 06-10-2023 End: 06-10-2023 ambulatory Hector LIMON Facility:[facility] Start: 06-10-2023 End: 06-10-2023 Subsequent hospital visit by physician Hector Limon MD Work Phone: Radiology Pet CT Start: 06-03-2023 Refill Nina Grigsby MD Work Phone: Hematology/Oncology Comment on above: Erroneous encounter- disregard Start: 06-02-2023 End: 06-02-2023 Patient encounter procedure Patricia Miller APRN.ACCESS LEAD Work Phone: [facility] Start: 06-02-2023 End: 06-02-2023 ambulatory Patricia Miller APRN.ACCESS LEAD Work Phone: Hematology/Oncology Comment on above: Malignant neoplasm o f upper lobe of left lung (HCC) (Primary Dx); Centrilobular emphysema (HCC); 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; PVD (peripheral vascular disease) (HCC); Cancer related pain; Tonsillar mass; Abnormal LFTs; Anxiety; Hypothyroidism due to medication Start: 05-30-2023 End: 05-30-2023 Patient encounter procedure Hector Limon MD Work Phone: Radiation Oncology Comment on above: Oropharnyx cancer (H CC) (Primary Dx) Start: 05-30-2023 End: 05-30-2023 ambulatory CHRISTINA LOPESRADHA AZUL Facility:[facility] Start: 05-27-2023 End: 05-27-2023 ambulatory NINA GRIGSBY Facility:[facility] Start: 05-27-2023 End: 05-27-2023 Patient [...] End: 05-16-2023 Patient encounter procedure Estella Fish DRAWING IN MACHINE TENDER HELPER.ACCESS LEAD Work Phone: Palliative Medicine Comment on above: Palliative care by s pecialist (Primary Dx); Neuropathy due to chemotherapeutic drug (HCC) ; Nausea; Anorexia; Protein-calorie malnutrition, unspecified severity (HCC); Anxiety; Insomnia due to medical condition Refill Request Start: 05-16-2023 End: 05-16-2023 ambulatory ESTELLA FISH Facility:[facility] Start: 05-15-2023 Telephone encounter Denita rushing RN Work Phone: Hematology/Oncology Comment on above: Care Coordination (T SH Results) Care Coordination (P ain; Constipation) Start: 05-13-2023 Telephone encounter Analisa Villatoro [facility] Work Phone: Hematology/Oncology Comment on above: Treatment Planning Refill Request Start: 05-13-2023 End: 05-13-2023 ambulatory NINA Naranjo GRIGSBY Facility:[facility] Start: 05-12-2023 End: 05-12-2023 ambulatory CHRISTINA AZUL Facility:[facility] Start: 05-12-2023 End: 05-12-2023 Subsequent hospital visit by physician Arrival Time Radiology Work Phone: Radiology Pet CT Comment on above: 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] Start: 05-08-2023 Telephone encounter Denita rushing RN Work Phone: Hematology/Oncology Comment on above: Care Coordination (S ore Throat) Start: 05-05-2023 Refill Analisa Victor icnathalia [facility] Work Phone: [facility] Comment on above: Refill Request Start: 04-23-2023 Telephone encounter Denita rushing RN Work Phone: Hematology/Oncology Comment on above: Care Coordination (T SH Results) Start: 04-22-2023 End: 04-23-2023 ambulatory CHRISTINA AZUL Facility:[facility] Start: 04-22-2023 End: 04-22-2023 ambulatory CHRISTINA AZUL Facility:[facility] Start: 04-16-2023 End: 04-16-2023 ambulatory GRANITE COUNTERTOP INSTALLER Enrique Esposito Facility:[facility] Start: 04-08-2023 Telephone encounter Denita rushing RN [...] End: 04-01-2023 Patient encounter procedure Patricia Miller APRN.ACCESS LEAD Work Phone: [facility] Start: 03-11-2023 End: 03-11-2023 ambulatory Chair [address] [place] [address] Work Phone: Hematology/Oncology Comment on above: Malignant [...] Start: 02-18-2023 End: 02-18-2023 ambulatory Chair [address] Work Phone: Hematology/Oncology Comment on above: Malignant [...] faxed Start: 01-08-2023 Telephone encounter Minna Madrigal AMMONIA REFRIGERATION TECHNICIAN H ematology/Oncology Comment on above: Social Work Services Appointment Start: 01-07-2023 Telephone encounter Patricia davidson APRN.ACCESS LEAD [facility] Comment on above: No Show [...] patient visit MD Christina Azul Work Phone: [facility] Work Phone: Start: 01-03-2023 Telephone encounter [...] 11-25-2022 End: 11-25-2022 Nutrition therapy Patricia Miller APRN.ACCESS LEAD Work Phone: Hematology/Oncology Comment on above: Malignant neoplasm o f upper lobe of left lung (HCC) (Primary Dx); Centrilobular emphysema (HCC); Abnormal LFTs; Cancer related pain; PVD (peripheral vascular disease) (HCC); Malaise and fatigue; Protein-calorie malnutrition, unspecified severity (HCC) Start: 11-25-2022 End: 11-25-2022 Patient encounter procedure Patricia Miller APRN.ACCESS LEAD Work Phone: [facility] Start: 11-21-2022 Telephone encounter [...] encounter procedure Nina Grigsby MD Work Phone: [employer] Start: 11-14-2022 Telephone encounter Nina cutler MD Work Phone: Hematology/Oncology Comment on above: Lab Orders Start: 11-12-2022 Patient encounter procedure Hector Erasto Limon MD Work Phone: [employer] Start: 11-12-2022 Radiation Oncology Note Hector Limon [...] Phone: [facility] Start: 10-10-2022 End: 10-10-2022 ambulatory [facility] Facility: Start: 10-10-2022 End: 10-10-2022 Subsequent [...] Phone: [facility] Start: 09-20-2022 End: 09-20-2022 ambulatory [facility] Start: 09-19-2022 End: 09-20-[address] JONATHAN CHANEY Facility: Start: 09-18-2022 End: 09-18-2022 ambulatory [facility] Start: 09-17-2022 End: 09-17-2022 Subsequent hospital visit [...] Start: 06-25-2022 End: 06-25-2022 ambulatory Patricia Miller APRN.ACCESS LEAD Work Phone: Hematology/Oncology Comment on above: Malignant neoplasm o f upper lobe of left lung (HCC) (Primary Dx); Anemia due to antineoplastic chemotherapy Start: 06-25-2022 End: 06-25-2022 Patient encounter procedure Patricia Miller APRN.ACCESS LEAD Work Phone: [facility] Comment on above: Thyroid [...] encounter procedure Hector Limon MD Work Phone: [facility] Start: 05-01-2022 Radiation Oncology Note G Vik [...] Start: 03-19-2022 End: 03-19-2022 ambulatory Patricia Miller APRN.ACCESS LEAD Work Phone: Hematology/Oncology Comment on above: Malignant neoplasm o f upper lobe of left lung (HCC) (Primary Dx); Anemia due to antineoplastic chemotherapy; Skin infection; Rash Start: 03-19-2022 End: 03-19-2022 Patient encounter procedure Patricia Miller APRN.ACCESS LEAD Work Phone: [facility] Start: 03-14-2022 End: 03-14-2022 [...] 02-27-2022 Departed Referred AMRITA Swann Work Phone: [facility] [place] Start: 02-26-2022 Telephone encounter Denita rushing RN Work Phone: Hematology/Oncology Comment on above: Care Coordination (R shankar) Start: 02-22-2022 Refill Verito Whelan MD Work Phone: Pulmonary Medicine Comment on above: Refill Request Start: 02-20-2022 End: 02-20-2022 ambulatory Patricia Miller APRN.ACCESS LEAD Work Phone: Hematology/Oncology Comment on above: Malignant [...] Start: 02-08-2022 Patient encounter procedure Ccf Provider [facility] Department Start: 02-08-2022 End: 02-08-[address] PATRICIA MILLER Facility: Start: 02-07-2022 End: 02-08-[address] PATRICIA MILLER Facility:[facility] Start: 02-07-2022 End: 02-07-2022 ambulatory Patricia Miller APRN.ACCESS LEAD Work Phone: Hematology/Oncology Comment on above: Malignant neoplasm o f upper lobe of left lung (HCC) (Primary Dx); Anemia due to antineoplastic chemotherapy; Acute kidney injury (HCC); Skin infection Start: 02-07-2022 End: 02-07-2022 Patient encounter procedure Patricia Miller APRN.ACCESS LEAD Work Phone: [facility] Start: 02-07-2022 Telephone encounter Patricia davidson APRN.ACCESS LEAD Work Phone: [facility] Comment on above: Transfusion Start: 01-30-2022 End: 01-30-2022 Patient encounter procedure Hector Limon MD Work Phone: Radiation Oncology Comment on above: Malignant neoplasm o f upper lobe of left lung (HCC) (Primary Dx) Start: 01-30-2022 ambulatory Merissa Fam RN Hematol ogy/Oncology Comment on above: Patient Education Start: 01-30-2022 Telephone encounter Patricia davidson APRN.ACCESS LEAD Work Phone: Hematology/Oncology Comment on above: Lab Orders Start: 01-29-2022 End: 01-29-2022 ambulatory Pulm [facility] Lab Main 11 Other Phone: Pulmonary Medicine Comment on above: Spirometry Start: 01-29-2022 End: 01-29-2022 Patient encounter procedure Pulm Fct Lab Main 11 Other Phone: [facility] Comment on above: Chronic obstructive [...] JOSE Start: 11-30-2021 Telephone encounter Patricia davidson APRN.ACCESS LEAD Work Phone: Cancer [facility] Comment on above: Future Appointment Lab Orders Start: 11-30-2021 End: 11-30-2021 ambulatory Patricia Miller APRN.ACCESS LEAD Work Phone: Hematology/Oncology Comment on above: Malignant [...] Start: 11-19-2021 End: 11-19-2021 ambulatory Chair 21 [facility] Work Phone: Hematology/Oncology Comment on above: Malignant neoplasm o f upper lobe of left lung (HCC) (Primary Dx); Acute kidney injury (HCC) Start: 11-16-2021 End: 11-18-[address] YUNIOR DOMINGUEZ Facility: Start: 11-16-2021 Telephone encounter Denita rushing RN Work Phone: Hematology/Oncology Comment on above: Care Coordination (B MP Results) Care Coordination (H ypertension) Start: 11-16-2021 End: 11-16-2021 ambulatory Chair 21 [facility] Work Phone: Hematology/Oncology Comment on above: Acute kidney injury (HCC) (Primary Dx); Malignant neoplasm of upper lobe of left lung (HCC) Start: 11-15-2021 End: 11-15-2021 ambulatory Chair 21 [facility] Work Phone: Hematology/Oncology Comment on above: Malignant neoplasm o f upper lobe of left lung (HCC) (Primary Dx) Start: 11-14-2021 Telephone encounter Denita rushing RN Work Phone: Hematology/Oncology Comment on above: Care Coordination (L ab Results) Start: 11-13-2021 End: 11-13-2021 ambulatory Chair 21 [facility] Work Phone: Hematology/Oncology Comment on above: Malignant neoplasm o f upper lobe of left lung (HCC) (Primary Dx) Start: 11-12-2021 End: 11-12-2021 ambulatory Chair 21 [facility] Work Phone: Hematology/Oncology Comment on above: Malignant neoplasm o f upper lobe of left lung (HCC) (Primary Dx) Start: 11-12-2021 Telephone encounter Denita rushing RN Work Phone: Hematology/Oncology Comment on above: Care Coordination (L ab ) Start: 11-09-2021 Telephone encounter Denita rushing RN Work Phone: Hematology/Oncology Comment on above: Care Coordination (C 1D1 Post Treatment Call) Start: 11-05-2021 End: 11-05-2021 ambulatory Patricia Miller APRN.ACCESS LEAD Work Phone: Hematology/Oncology Comment on above: Malignant neoplasm o f upper lobe of left lung (HCC) (Primary Dx) Start: 11-05-2021 End: 11-05-2021 Patient encounter procedure Patricia Miller APRN.ACCESS LEAD Work Phone: [facility] Start: 10-31-2021 Patient encounter procedure Ccf Provider [facility] Department Start: 10-31-2021 End: 10-31-2021 Subsequent hospital visit by physician Jenelle [facility] (I-Stat/1.5t) Radiology Comment on above: Malignant neoplasm o f upper lobe of left lung (HCC) [C34.12] Start: 10-30-2021 Telephone encounter Denita rushing RN Work Phone: Hematology/Oncology Comment on above: Care Coordination (R esearch Trial) Lab Orders Start: 10-29-2021 ambulatory Katlin Omer [facility] Work Phone: Hematology/Oncology Comment on above: [...] procedure Renetta Ponce MD Work Phone: [facility] Start: 10-11-2021 End: 10-11-2021 Patient encounter procedure Aracelis Carrillo APRN.ACCESS LEAD Work Phone: [facility] Comment on above: [...] End: 02-24-2019 Patient encounter procedure PROVIDER UNKNOWN Facility:[facility] Procedures Date Procedure Procedure Detail Performing Clinician [...] exam ches t 2 views Patricia Miller DRAWING IN MACHINE TENDER HELPER.ACCESS LEAD Work Phone: Start: 01-17-[address] atten uation skull base mid-thigh Patricia Miller DRAWING IN MACHINE TENDER HELPER.ACCESS LEAD Work Phone: Start: 01-17-2023 Gluc bld gluc [...] Adult depression scr eening assessment Patricia Miller DRAWING IN MACHINE TENDER HELPER.ACCESS LEAD Work Phone: Start: 01-29-2022 Brncdilat rspse spmt ry pre&post-brncdilat admn Verito Whelan MD Work Phone: Start: 01-29-2022 Radiologic exam ches t 2 views Aracelis Carrillo DRAWING IN MACHINE TENDER HELPER.ACCESS LEAD Work Phone: Start: 12-11-2021 Adult depression scr eening assessment Verito Whelan MD Work Phone: Start: 12-07-2021 PSA screening LOVE MARTINEZ Comment on above: Performed By: #### P SAD #### [facility] [address] [place] [address] Dr. Usama Hobbs Start: 11-21-2021 Basic metabolic [...] Detail Author Start: 10-13-2030 Urine microalbumin profile [facility] Start: 03-18-2027 Diabetes Screening Diabetes Screenin g [facility] Start: 02-02-2027 Diabetes Screening Diabetes Screenin g [facility] Start: 12-22-2026 Diabetes Screening Diabetes Screenin [facility] Start: 12-07-2026 PROSTATE CANCER SCREENING DISCUSSION PROSTATE CANCER SCREENING DISCUSSION [facility] Start: 12-07-2026 Prostate specific antigen measurement Prostate Cancer Screening Discussion [facility] Start: 11-24-2026 Diabetes Screening Diabetes Screenin [facility] Start: 11-03-2026 Diabetes Screening Diabetes Screenin g [facility] Start: 10-19-2026 Diabetes Screening Diabetes Screenin g [facility] Start: 09-21-2026 Diabetes Screening Diabetes Screenin g [facility] Start: 08-25-2026 Diabetes Screening Diabetes Screenin g [facility] Start: 06-30-2026 Diabetes Screening Diabetes Screenin g [facility] Start: 06-02-2026 Diabetes Screening Diabetes Screenin g [facility] Start: 05-13-2026 Diabetes Screening Diabetes Screenin g [facility] Start: 04-22-2026 Diabetes Screening Diabetes Screenin g [facility] Start: 04-01-2026 Diabetes Screening Diabetes Screenin g [facility] Start: 03-11-2026 DIABETES SCREEN DIABETES SCREEN [facility] Start: 02-18-2026 DIABETES SCREEN DIABETES SCREEN [facility] Start: 01-28-2026 DIABETES SCREEN DIABETES SCREEN [facility] Start: 01-07-2026 DIABETES SCREEN DIABETES SCREEN [facility] Start: 12-27-2025 DIABETES SCREEN DIABETES SCREEN [facility] Start: 12-17-2025 DIABETES SCREEN DIABETES SCREEN [facility] Start: 11-25-2025 DIABETES SCREEN DIABETES SCREEN [facility] Start: 11-18-2025 DIABETES SCREEN DIABETES SCREEN [facility] Start: 11-11-2025 DIABETES SCREEN DIABETES SCREEN [facility] Start: 10-31-2025 DIABETES SCREEN DIABETES SCREEN [facility] Start: 10-21-2025 DIABETES SCREEN DIABETES SCREEN [facility] Start: 09-23-2025 DIABETES SCREEN DIABETES SCREEN [facility] Start: 08-20-2025 DIABETES SCREEN DIABETES SCREEN [facility] Start: 06-25-2025 DIABETES SCREEN DIABETES SCREEN [facility] Start: 04-30-2025 DIABETES SCREEN DIABETES SCREEN [facility] Start: 03-19-2025 DIABETES SCREEN DIABETES SCREEN [facility] Start: 03-15-2025 BP Controlled (<130/80) BP Controlle d (<130/80) [facility] Start: 02-20-2025 DIABETES SCREEN DIABETES SCREEN [facility] Start: 02-07-2025 DIABETES SCREEN DIABETES SCREEN [facility] Start: 02-02-2025 BP Controlled (<130/80) BP Controlle d (<130/80) [facility] Start: 01-22-2025 DIABETES SCREEN DIABETES SCREEN [facility] Start: 01-14-2025 DIABETES SCREEN DIABETES SCREEN [facility] Start: 01-03-2025 DIABETES SCREEN DIABETES SCREEN [facility] Start: 12-24-2024 DIABETES SCREEN DIABETES SCREEN [facility] Start: 12-11-2024 DIABETES SCREEN DIABETES SCREEN [facility] Start: 12-03-2024 DIABETES SCREEN DIABETES SCREEN [facility] Start: 11-30-2024 DIABETES SCREEN DIABETES SCREEN [facility] Start: 11-26-2024 DIABETES SCREEN DIABETES SCREEN [facility] Start: 11-21-2024 DIABETES SCREEN DIABETES SCREEN [facility] Start: 11-19-2024 DIABETES SCREEN DIABETES SCREEN [facility] Start: 11-16-2024 DIABETES SCREEN DIABETES SCREEN [facility] Start: 11-14-2024 DIABETES SCREEN DIABETES SCREEN [facility] Start: 11-12-2024 DIABETES SCREEN DIABETES SCREEN [facility] Start: 11-05-2024 DIABETES SCREEN DIABETES SCREEN [facility] Start: 10-04-2024 DIABETES SCREEN DIABETES SCREEN [facility] Start: 06-30-2024 BP Controlled (<130/80) BP Controlle d (<130/80) [facility] Start: 05-05-2024 End: 05-05-2024 Patient encounter procedure Pulmonary Medicine Comment on above: Centrilobular emphys luke (HCC) [J43.2] Start: 04-20-2024 ambulatory Ambulatory Facility:[facility] Start: 04-14-2024 End: 04-14-2024 Patient encounter procedure 04/14/2024 10:30 AM EDT Office Visit Palliative Medicine [address] [place] [address] Estella Fish, DRAWING IN MACHINE TENDER HELPER.ACCESS LEAD [address] [place] [address] 4 week follow up-in person Palliative Medicine Comment on above: 4 week follow up-in person Start: 04-12-2024 ambulatory Ambulatory Facility:[facility] Start: 04-08-2024 End: 04-08-2024 Follow-up encounter 04/08/2024 11:30 AM EDT Visit (SP) Office Hematology/Oncology [address] [place] [address] Nina Grigsby MD [address] [place] [address] 6 week follow up Hematology/Oncology Comment on above: 6 week follow up Start: 04-08-2024 End: 04-08-2024 Patient encounter procedure 04/08/2024 11:15 AM EDT Office Visit [facility] [address] [place] [address] PRINT SCHEDULE [facility] Comment on above: PRINT SCHEDULE Start: 03-23-2024 Magnetic resonance angiography of head without contrast MR angio MR brain w/o [facility] Start: 03-21-2024 Covid-19 Vaccine ( season) Covid-19 Vaccine ( season) [facility] Start: 03-21-2024 Covid-19 Vaccine ( season) Covid-19 Vaccine ( season) [facility] Start: 03-21-2024 Influenza vaccination [facility] Start: 03-20-2024 [facility] Start: 03-19-2024 Referral to neurologist [facility] Start: 03-19-2024 Hospital admission [facility] Start: 03-18-2024 Plain chest X-ray XR chest 2V* [facility] Start: 03-18-2024 [facility] Start: 03-18-2024 End: 03-18-2024 Follow-up encounter 03/18/2024 1:30 PM EDT Visit (SP) Office Hematology/Oncology [address] [place] [address] Nina Grigsby MD [address] [place] [address] 6 week follow up Hematology/Oncology Comment on above: 6 week follow up Start: 03-18-2024 End: 03-18-2024 Patient encounter procedure [facility] Comment on above: 6 week follow up PRINT SCHEDULE Start: 03-17-2024 End: 03-17-2024 Patient encounter procedure 03/17/2024 10:30 AM EDT Office Visit Palliative Medicine [address] [place] [address] Estella Fish, DRAWING IN MACHINE TENDER HELPER.ACCESS LEAD [address] [place] [address] 3 month follow up Palliative Medicine Comment on above: 3 month follow up Start: 03-15-2024 End: 03-15-2024 Patient encounter procedure 03/15/2024 1:00 PM EDT Office Visit Pulmonary Medicine [address] [place], [place] [id number] [place] [address] [place] [address] *jose called and requested appointment Pulmonary Medicine Comment on above: *jose called and requested appointment Start: 03-09-2024 End: 03-09-2024 Patient encounter procedure 03/09/2024 9:00 AM EDT Appointment Radiology Pet CT [address] [place] [address] Comment on above: PET Start: 02-27-2024 End: 02-27-2024 Patient encounter procedure 02/27/2024 10:30 AM EDT Office Visit Palliative Medicine [address] [place] [address] Estella Fish, OZZIE.ACCESS LEAD [address] [place] [address] 3 month follow up Palliative Medicine Comment on above: 3 month follow up Start: 02-07-2024 Plain chest X-ray XR chest 2V* [facility] Start: 02-07-2024 XR Chest 2 Views [facility] Start: 02-03-2024 End: 05-04-2024 CBC W Auto Differential panel - Blood COMPLETE BLOOD COUNT AND DIFFERENTIAL Lab Routine 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 Expected: 02/03/2024, Expires: 05/04/2024 [facility] Comment on above: Expected: 02/03/2024 , Expires: 05/04/2024 Start: 02-03-2024 End: 05-04-2024 Comprehensive metabolic 2000 panel - Serum or Plasma COMPREHENSIVE METABOLIC PANEL Lab Routine 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 Expected: 02/03/2024, Expires: 05/04/2024 [facility] Work Phone: Comment on above: Expected: 02/03/2024 , Expires: 05/04/2024 Start: 02-03-2024 End: 05-04-2024 Thyrotropin [Units/volume] in Serum or Plasma THYROID STIMULATING HORMONE Lab Routine 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 Expected: 02/03/2024, Expires: 05/04/2024 [facility] Comment on above: Expected: 02/03/2024 , Expires: 05/04/2024 Start: 02-03-2024 End: 02-03-2024 Follow-up encounter 02/03/2024 11:30 AM EDT Visit (SP) Office Hematology/Oncology [facility] [place] [address] Yusef Pandya PA-C [address] [place] [address] 6 week follow up Hematology/Oncology Comment on above: 6 week follow up Start: 02-03-2024 End: 02-03-2024 Patient encounter procedure 02/03/2024 11:15 AM EDT Office Visit [facility] [place] [address] 6 week follow up [facility] Comment on above: 6 week follow up Start: 01-29-2024 BP CONTROLLED (<130/80) BP CONTROLLE D (<130/80) [facility] Start: 01-27-2024 End: 04-27-2024 CBC W Auto Differential panel - Blood COMPLETE BLOOD COUNT AND DIFFERENTIAL Lab Routine Primary malignant neoplasm of left lung metastatic to other site (HCC) Expected: 01/27/2024, Expires: 04/27/2024 [facility] Comment on above: Expected: 01/27/2024 , Expires: 04/27/2024 Start: 01-27-2024 End: 04-27-2024 Comprehensive metabolic 2000 panel - Serum or Plasma COMPREHENSIVE METABOLIC PANEL Lab Routine Primary malignant neoplasm of left lung metastatic to other site (HCC) Expected: 01/27/2024, Expires: 04/27/2024 [facility] Work Phone: Comment on above: Expected: 01/27/2024 , Expires: 04/27/2024 Start: 12-30-2023 End: 12-30-2023 ambulatory 12/30/2023 11:30 AM EDT Visit (SP) Office Hematology/Oncology [facility] [address] [place] [address] Yunior Thacker, LMT [address] [place] [address] Massage pt in the lobby Hematology/Oncology Comment on above: Massage pt in the lobby Start: 12-24-2023 End: 12-24-2023 Patient encounter procedure Radiation Oncology Comment on above: Chest wall Chest wall- do compl etion tasks for both areas Start: 12-23-2023 End: 12-23-2023 Follow-up encounter 12/23/2023 2:45 PM EDT Visit (SP) Office Hematology/Oncology [address] [place] [address] Nina Grigsby MD [address] [address] 3 week follow up after Dr. Fay garces and XRT Hematology/Oncology Comment on above: 3 week follow up aft er Dr. Fay garces and XRT Start: 12-23-2023 End: 12-23-2023 Patient encounter procedure [facility] Comment on above: 3 week follow up aft er Dr. Limon consult and XRT Chest wall- grigsby\T \ labs 2:30 Start: 12-23-2023 End: 12-23-2023 Patient encounter procedure 12/23/2023 10:15 AM EDT Appointment Radiation Oncology [address] [place] [address] Chest wall Radiation Oncology Comment on above: Chest wall Start: 12-22-2023 End: 12-22-2023 Patient encounter procedure Radiation Oncology Comment on above: Chest wall Location: [facility] Start: 12-19-2023 End: 12-19-2023 Patient encounter procedure 12/19/2023 10:45 AM EDT Appointment Radiation Oncology [address] [place] [address] Chest wall Radiation Oncology Comment on above: Chest wall Start: 12-18-2023 BP CONTROLLED (<130/80) BP CONTROLLE D (<130/80) [facility] Start: 12-18-2023 End: 12-18-2023 Patient encounter procedure 12/18/2023 2:00 PM EDT Appointment Radiation Oncology [address] [address] Chest wall Radiation Oncology Comment on above: Chest wall Start: 12-17-2023 End: 12-17-2023 Patient encounter procedure 12/17/2023 12:15 PM EDT Appointment Radiation Oncology [address] [address] Neck and Chest wall Radiation Oncology Comment [...] BP CONTROLLED (<130/80) BP CONTROLLE D (<130/80) [facility] Start: 11-25-2023 End: 02-24-2024 CBC W Auto Differential panel - Blood COMPLETE BLOOD COUNT AND DIFFERENTIAL Lab Routine Malignant neoplasm of upper lobe of left lung (HCC) Expected: 11/25/2023 (Approximate), Expires: 02/24/2024 [facility] Work Phone: Comment on above: Expected: 11/25/2023 (Approximate), Expires: 02/24/2024 Start: 11-25-2023 End: 02-24-2024 Comprehensive metabolic 2000 panel - Serum or Plasma COMPREHENSIVE METABOLIC PANEL Lab Routine Malignant neoplasm of upper lobe of left lung (HCC) Expected: 11/25/2023 (Approximate), Expires: 02/24/2024 [facility] Comment on above: Expected: 11/25/2023 (Approximate), Expires: 02/24/2024 Start: 11-25-2023 End: 02-24-2024 Thyrotropin [Units/volume] in Serum or Plasma THYROID STIMULATING HORMONE Lab Routine Malignant neoplasm of upper lobe of left lung (HCC) Expected: 11/25/2023 (Approximate), Expires: 02/24/2024 [facility] Comment on above: Expected: 11/25/2023 (Approximate), Expires: 02/24/2024 Start: 11-25-2023 End: 11-25-2023 Patient encounter procedure 11/25/2023 10:45 AM EDT Appointment Radiology Pet CT [address] [place] [address] Comment on above: PET Start: 11-21-2023 End: 11-21-2023 Patient encounter procedure 11/21/2023 10:00 AM EDT Office Visit Palliative Medicine [address] [place] [address] Estella Fish, DRAWING IN MACHINE TENDER HELPER.ACCESS LEAD [address] [place] [address] 3 month follow up Palliative Medicine Comment on above: 3 month follow up Start: 11-19-2023 BP CONTROLLED (<130/80) BP CONTROLLE D (<130/80) [facility] Start: 11-01-2023 BP CONTROLLED (<130/80) BP CONTROLLE D (<130/80) [facility] Start: 10-29-2023 BP CONTROLLED (<130/80) BP CONTROLLE D (<130/80) [facility] Start: 10-22-2023 BP CONTROLLED (<130/80) BP CONTROLLE D (<130/80) [facility] Start: 09-24-2023 BP CONTROLLED (<130/80) BP CONTROLLE D (<130/80) [facility] Start: 08-25-2023 End: 11-24-2023 T4/FTI/T4U [facility] Work Phone: Comment on above: Expected: 08/25/2023 , Expires: 11/24/2023 Start: 08-25-2023 End: 11-24-2023 Thyrotropin [Units/volume] in Serum or Plasma [facility] Work Phone: Comment on above: Expected: 08/25/2023 , Expires: 11/24/2023 Start: 08-20-2023 BP CONTROLLED (<130/80) BP CONTROLLE D (<130/80) [facility] Start: 07-21-2023 Advance Directive Discussion Advance Directive Discussion [facility] Start: 07-21-2023 Behavioral Health Screening Behavioral Health Screening [facility] Start: 07-21-2023 Depression Assessment Depression Ass essment [facility] Start: 07-01-2023 End: 09-30-2023 CBC W Auto Differential panel - Blood CBC + DIFF Lab Routine Malignant neoplasm of upper lobe of left lung (HCC) Centrilobular emphysema (HCC) 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 PVD (peripheral vascular disease) (HCC) Cancer related pain Tonsillar mass Abnormal LFTs Anxiety Hypothyroidism due to medication Expected: 07/01/2023, Expires: 09/30/2023 [facility] Work Phone: Comment on above: Expected: 07/01/2023 , Expires: 09/30/2023 Start: 07-01-2023 End: 09-30-2023 Comprehensive metabolic 2000 panel - Serum or Plasma COMP METABOLIC PANEL Lab Routine Malignant neoplasm of upper lobe of left lung (HCC) Centrilobular emphysema (HCC) 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 PVD (peripheral vascular disease) (HCC) Cancer related pain Tonsillar mass Abnormal LFTs Anxiety Hypothyroidism due to medication Expected: 07/01/2023, Expires: 09/30/2023 [facility] Work Phone: Comment on above: Expected: 07/01/2023 , Expires: 09/30/2023 Start: 07-01-2023 End: 09-30-2023 Thyrotropin [Units/volume] in Serum or Plasma TSH BLD Lab Routine Malignant neoplasm of upper lobe of left lung (HCC) Centrilobular emphysema (HCC) 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 PVD (peripheral vascular disease) (HCC) Cancer related pain Tonsillar mass Abnormal LFTs Anxiety Hypothyroidism due to medication Expected: 07/01/2023, Expires: 09/30/2023 [facility] Work Phone: Comment on above: Expected: 07/01/2023 , Expires: 09/30/2023 Start: 06-13-2023 End: 09-12-2023 TOX SCREEN ROUT UR TOX SCREEN ROUT UR Lab Routine Opioid contract exists Expected: 06/13/2023, Expires: 09/12/2023 [facility] Work Phone: Comment on above: Expected: 06/13/2023 , Expires: 09/12/2023 Start: 06-11-2023 BP CONTROLLED (<130/80) BP CONTROLLE D (<130/80) [facility] Start: 06-02-2023 End: 09-01-2023 CBC W Auto Differential panel - Blood CBC + DIFF Lab Routine Malignant neoplasm of upper lobe of left lung (HCC) Expected: 06/02/2023, Expires: 09/01/2023 [facility] Work Phone: Comment on above: Expected: 06/02/2023 , Expires: 09/01/2023 Start: 04-22-2023 End: 06-22-2023 CBC W Auto Differential panel - Blood CBC + DIFF Lab Routine 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) Cancer related pain Abnormal LFTs Anxiety Centrilobular emphysema (HCC) PVD (peripheral vascular disease) (HCC) Anemia due to antineoplastic chemotherapy Skin rash Expected: 04/22/2023, Expires: 06/22/2023 [facility] Work Phone: Comment on above: Expected: [...] chemotherapy Skin rash Expected: 04/22/2023, Expires: 06/22/2023 [facility] Work Phone: Comment on above: Expected: 04/22/2023 , Expires: 06/22/2023 Start: 04-22-2023 End: 06-22-2023 Thyrotropin [Units/volume] in Serum or Plasma TSH BLD Lab Routine 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) Cancer related pain Abnormal LFTs Anxiety Centrilobular emphysema (HCC) PVD (peripheral vascular disease) (HCC) Anemia due to antineoplastic chemotherapy Skin rash Expected: 04/22/2023, Expires: 06/22/2023 [facility] Work Phone: Comment on above: Expected: 04/22/2023 , Expires: 06/22/2023 Start: 03-26-2023 BP CONTROLLED (<130/80) BP CONTROLLE D (<130/80) [facility] Start: 03-21-2023 Covid-19 Vaccine () Covid-19 Vaccine () [facility] Start: 03-21-2023 Influenza vaccination [facility] Start: 03-19-2023 Adult depression screening assessment DEPRESSION SCREENING [facility] Start: 03-19-2023 BP CONTROLLED (<130/80) BP CONTROLLE D (<130/80) [facility] Start: 03-11-2023 End: 05-11-2023 T4/FTI/T4U [facility] Work Phone: Comment on above: Expected: 03/11/2023 , Expires: 05/11/2023 Start: 03-11-2023 End: 05-11-2023 Thyrotropin [Units/volume] in Serum or Plasma [facility] Work Phone: Comment on above: Expected: 03/11/2023 , Expires: 05/11/2023 Start: 02-20-2023 BP CONTROLLED (<130/80) BP CONTROLLE D (<130/80) [facility] Start: 02-08-2023 COLORECTAL CANCER SCREENING COLORECTAL CANCER SCREENING [facility] Start: 02-08-2023 FECAL OCCULT BLOOD FECAL OCCULT BLOO D [facility] Start: 02-08-2023 Screening for malign ant neoplasm of colon [facility] Start: 02-07-2023 BP CONTROLLED (<130/80) BP CONTROLLE D (<130/80) [facility] Start: 01-30-2023 BP CONTROLLED (<130/80) BP CONTROLLE D (<130/80) [facility] Start: 01-22-2023 BP CONTROLLED (<130/80) BP CONTROLLE D (<130/80) [facility] Start: 01-14-2023 BP CONTROLLED (<130/80) BP CONTROLLE D (<130/80) [facility] Start: 01-07-2023 End: 03-09-2023 Thyrotropin [Units/volume] in Serum or Plasma [facility] Work Phone: Comment on above: Expected: 01/07/2023 , Expires: 03/09/2023 Start: 12-27-2022 End: 02-26-2023 Comprehensive metabolic 2000 panel - Serum or Plasma COMP METABOLIC PANEL Lab Routine 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) Abnormal LFTs Expected: 12/27/2022 (Approximate), Expires: 02/26/2023 [facility] Work Phone: Comment on above: Expected: 12/27/2022 (Approximate), Expires: 02/26/2023 Start: 12-24-2022 BP CONTROLLED (<130/80) BP CONTROLLE D (<130/80) [facility] Start: 12-16-2022 End: 02-15-2023 CBC W Auto Differential panel - Blood CBC + DIFF Lab Routine Malignant neoplasm of upper lobe of left lung (HCC) Centrilobular emphysema (HCC) Abnormal LFTs Cancer related pain PVD (peripheral vascular disease) (HCC) Malaise and fatigue Expected: 12/16/2022, Expires: 02/15/2023 [facility] Work Phone: Comment on above: Expected: 12/16/2022 , Expires: 02/15/2023 Start: 12-16-2022 End: 02-15-2023 Comprehensive metabolic 2000 panel - Serum or Plasma COMP METABOLIC PANEL Lab Routine Malignant neoplasm of upper lobe of left lung (HCC) Centrilobular emphysema (HCC) Abnormal LFTs Cancer related pain PVD (peripheral vascular disease) (HCC) Malaise and fatigue Expected: 12/16/2022, Expires: 02/15/2023 [facility] Work Phone: Comment on above: Expected: 12/16/2022 , Expires: 02/15/2023 Start: 12-16-2022 End: 02-15-2023 Thyrotropin [Units/volume] in Serum or Plasma TSH BLD Lab Routine Malignant neoplasm of upper lobe of left lung (HCC) Centrilobular emphysema (HCC) Abnormal LFTs Cancer related pain PVD (peripheral vascular disease) (HCC) Malaise and fatigue Expected: 12/16/2022, Expires: 02/15/2023 [facility] Work Phone: Comment on above: Expected: 12/16/2022 , Expires: 02/15/2023 Start: 12-11-2022 Adult depression screening assessment DEPRESSION SCREENING [facility] Start: 12-11-2022 BP CONTROLLED (<130/80) BP CONTROLLE D (<130/80) [facility] Start: 12-09-2022 End: 02-08-2023 CBC W Auto Differential panel - Blood CBC + DIFF Lab Routine Malignant neoplasm of upper lobe of left lung (HCC) Centrilobular emphysema (HCC) Abnormal LFTs Cancer related pain PVD (peripheral vascular disease) (HCC) Expected: 12/09/2022, Expires: 02/08/2023 [facility] Work Phone: Comment on above: Expected: 12/09/2022 , Expires: 02/08/2023 Start: 12-09-2022 End: 02-08-2023 Comprehensive metabolic 2000 panel - Serum or Plasma COMP METABOLIC PANEL Lab Routine Malignant neoplasm of upper lobe of left lung (HCC) Centrilobular emphysema (HCC) Abnormal LFTs Cancer related pain PVD (peripheral vascular disease) (HCC) Expected: 12/09/2022, Expires: 02/08/2023 [facility] Work Phone: Comment on above: Expected: 12/09/2022 , Expires: 02/08/2023 Start: 12-03-2022 BP CONTROLLED (<130/80) BP CONTROLLE D (<130/80) [facility] Start: 11-30-2022 BP CONTROLLED (<130/80) BP CONTROLLE D (<130/80) [facility] Start: 11-26-2022 BP CONTROLLED (<130/80) BP CONTROLLE D (<130/80) [facility] Start: 11-25-2022 End: 01-25-2023 CBC W Auto Differential panel - Blood CBC + DIFF Lab Routine 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) Abnormal LFTs Expected: 11/25/2022, Expires: 01/25/2023 [facility] Work Phone: Comment on above: Expected: 11/25/2022 , Expires: 01/25/2023 Start: 11-25-2022 End: 01-25-2023 Comprehensive metabolic 2000 panel - Serum or Plasma COMP METABOLIC PANEL Lab Routine 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) Abnormal LFTs Expected: 11/25/2022, Expires: 01/25/2023 [facility] Work Phone: Comment on above: Expected: 11/25/2022 , Expires: 01/25/2023 Start: 11-25-2022 End: 01-25-2023 Thyrotropin [Units/volume] in Serum or Plasma TSH BLD Lab Routine 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) Abnormal LFTs Malaise and fatigue Expected: 11/25/2022, Expires: 01/25/2023 [facility] Work Phone: Comment on above: Expected: 11/25/2022 , Expires: 01/25/2023 Start: 11-18-2022 End: 01-18-2023 CBC W Auto Differential panel - Blood CBC + DIFF Lab Routine 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) Expected: 11/18/2022, Expires: 01/18/2023 [facility] Work Phone: Comment on above: Expected: 11/18/2022 , Expires: 01/18/2023 Start: 11-18-2022 End: 01-18-2023 Comprehensive metabolic 2000 panel - Serum or Plasma COMP METABOLIC PANEL Lab Routine 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) Expected: 11/18/2022, Expires: 01/18/2023 [facility] Work Phone: Comment on above: Expected: 11/18/2022 , Expires: 01/18/2023 Start: 11-18-2022 End: 01-18-2023 Lactate dehydrogenase [Enzymatic activity/volume] in Serum or Plasma LD LACTATE DEHYDRO Lab Routine 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) Expected: 11/18/2022, Expires: 01/18/2023 [facility] Work Phone: Comment on above: Expected: 11/18/2022 , Expires: 01/18/2023 Start: 11-12-2022 BP CONTROLLED (<130/80) BP CONTROLLE D (<130/80) [facility] Start: 11-05-2022 BP CONTROLLED (<130/80) BP CONTROLLE D (<130/80) [facility] Start: 10-24-2022 BP CONTROLLED (<130/80) BP CONTROLLE D (<130/80) [facility] Start: 10-19-2022 BP CONTROLLED (<130/80) BP CONTROLLE D (<130/80) [facility] Start: 10-15-2022 End: 12-15-2022 MISC SEND OUT TST 1 MISC SEND OUT TST 1 Lab Routine Malignant neoplasm of upper lobe of left lung (HCC) Expected: 10/15/2022, Expires: 12/15/2022 [facility] Work Phone: Comment on above: Expected: 10/15/2022 , Expires: 12/15/2022 Start: 10-11-2022 BP CONTROLLED (<130/80) BP CONTROLLE D (<130/80) [facility] Start: 09-17-2022 End: 11-17-2022 CBC W Auto Differential panel - Blood CBC + DIFF Lab Routine Malignant neoplasm of upper lobe of left lung (HCC) Malaise and fatigue Expected: 09/17/2022 (Approximate), Expires: 11/17/2022 [facility] Work Phone: Comment on above: Expected: 09/17/2022 (Approximate), Expires: 11/17/2022 Start: 09-17-2022 End: 11-17-2022 Comprehensive metabolic 2000 panel - Serum or Plasma COMP METABOLIC PANEL Lab Routine Malignant neoplasm of upper lobe of left lung (HCC) Malaise and fatigue Expected: 09/17/2022 (Approximate), Expires: 11/17/2022 [facility] Work Phone: Comment on above: Expected: 09/17/2022 (Approximate), Expires: 11/17/2022 Start: 09-17-2022 End: 11-17-2022 Lactate dehydrogenase [Enzymatic activity/volume] in Serum or Plasma LD LACTATE DEHYDRO Lab Routine Malignant neoplasm of upper lobe of left lung (HCC) Malaise and fatigue Expected: 09/17/2022 (Approximate), Expires: 11/17/2022 [facility] Work Phone: Comment on above: Expected: 09/17/2022 (Approximate), Expires: 11/17/2022 Start: 09-17-2022 End: 11-17-2022 Thyrotropin [Units/volume] in Serum or Plasma TSH BLD Lab Routine Malignant neoplasm of upper lobe of left lung (HCC) Malaise and fatigue Expected: 09/17/2022 (Approximate), Expires: 11/17/2022 [facility] Work Phone: Comment on above: Expected: 09/17/2022 (Approximate), Expires: 11/17/2022 Start: 08-20-2022 End: 10-20-2022 CBC W Auto Differential panel - Blood CBC + DIFF Lab Routine Malignant neoplasm of upper lobe of left lung (HCC) Anemia due to antineoplastic chemotherapy Expected: 08/20/2022, Expires: 10/20/2022 [facility] Work Phone: Comment on above: Expected: 08/20/2022 , Expires: 10/20/2022 Start: 08-20-2022 End: 10-20-2022 Comprehensive metabolic 2000 panel - Serum or Plasma COMP METABOLIC PANEL Lab Routine Malignant neoplasm of upper lobe of left lung (HCC) Anemia due to antineoplastic chemotherapy Expected: 08/20/2022, Expires: 10/20/2022 [facility] Work Phone: Comment on above: Expected: 08/20/2022 , Expires: 10/20/2022 Start: 07-21-2022 ADVANCE DIRECTIVE DISCUSSION ADVANCE DIRECTIVE DISCUSSION [facility] Start: 07-21-2022 DEPRESSION ASSESSMENT DEPRESSION ASS ESSMENT [facility] Start: 06-25-2022 End: 08-25-2022 THYROGLOBULIN BY MASS SPECTROMETRY THYROGLOBULIN BY MASS SPECTROMETRY Lab Routine Thyroid cancer (HCC) Expected: 06/25/2022, Expires: 08/25/2022 [facility] Work Phone: Comment on above: Expected: 06/25/2022 , Expires: 08/25/2022 Start: 04-18-2022 End: 06-18-2022 CBC W Auto Differential panel - Blood CBC + DIFF Lab Routine Malignant neoplasm of upper lobe of left lung (HCC) Expected: 04/18/2022, Expires: 06/18/2022 [facility] Work Phone: Comment on above: Expected: 04/18/2022 , Expires: 06/18/2022 Start: 04-18-2022 End: 06-18-2022 Comprehensive metabolic 2000 panel - Serum or Plasma COMP METABOLIC PANEL Lab Routine Malignant neoplasm of upper lobe of left lung (HCC) Expected: 04/18/2022, Expires: 06/18/2022 [facility] Work Phone: Comment on above: Expected: 04/18/2022 , Expires: 06/18/2022 Start: 03-21-2022 Influenza vaccination [facility] Start: 02-22-2022 End: 04-24-2022 CBC W Auto Differential panel - Blood [facility] Work Phone: Comment on above: Expected: 02/22/2022 , Expires: 04/24/2022 Start: 02-22-2022 End: 04-24-2022 Comprehensive metabolic 2000 panel - Serum or Plasma [facility] Work Phone: Comment on above: Expected: 02/22/2022 , Expires: 04/24/2022 Start: 02-15-2022 End: 04-17-2022 CBC W Auto Differential panel - Blood CBC + DIFF Lab Routine Malignant neoplasm of upper lobe of left lung (HCC) Expected: 02/15/2022, Expires: 04/17/2022 [facility] Work Phone: Comment on above: Expected: 02/15/2022 , Expires: 04/17/2022 Start: 2022 ADVANCE DIRECTIVE DISCUSSION ADVANCE DIRECTIVE DISCUSSION [facility] Start: 02-07-2022 End: 04-09-2022 Iron and Iron binding capacity panel - Serum or Plasma [facility] Work Phone: Comment on above: Expected: 02/07/2022 , Expires: 04/09/2022 Start: 02-05-2022 End: 04-07-2022 CBC W Auto Differential panel - Blood CBC + DIFF Lab Routine Malignant neoplasm of upper lobe of left lung (HCC) Expected: 02/05/2022, Expires: 04/07/2022 [facility] Work Phone: Comment on above: Expected: 02/05/2022 , Expires: 04/07/2022 Start: 02-05-2022 End: 04-07-2022 Comprehensive metabolic 2000 panel - Serum or Plasma COMP METABOLIC PANEL Lab Routine Malignant neoplasm of upper lobe of left lung (HCC) Expected: 02/05/2022, Expires: 04/07/2022 [facility] Work Phone: Comment on above: Expected: 02/05/2022 , Expires: 04/07/2022 Start: 02-05-2022 End: 04-07-2022 Magnesium [Mass/volume] in Serum or Plasma MAGNESIUM BLD Lab Routine Malignant neoplasm of upper lobe of left lung (HCC) Expected: 02/05/2022, Expires: 04/07/2022 [facility] Work Phone: Comment on above: Expected: 02/05/2022 , Expires: 04/07/2022 Start: 01-22-2022 End: 03-24-2022 CBC W Auto Differential panel - Blood CBC + DIFF Lab Routine Malignant neoplasm of upper lobe of left lung (HCC) Expected: 01/22/2022, Expires: 03/24/2022 [facility] Work Phone: Comment on above: Expected: 01/22/2022 , Expires: 03/24/2022 Start: 01-22-2022 End: 03-24-2022 Comprehensive metabolic 2000 panel - Serum or Plasma COMP METABOLIC PANEL Lab Routine Malignant neoplasm of upper lobe of left lung (HCC) Expected: 01/22/2022, Expires: 03/24/2022 [facility] Work Phone: Comment on above: Expected: 01/22/2022 , Expires: 03/24/2022 Start: 01-10-2022 End: 03-12-2022 CBC W Auto Differential panel - Blood CBC + DIFF Lab Routine Malignant neoplasm of upper lobe of left lung (HCC) Expected: 01/10/2022, Expires: 03/12/2022 [facility] Work Phone: Comment on above: Expected: 01/10/2022 , Expires: 03/12/2022 Start: 01-10-2022 End: 03-12-2022 Comprehensive metabolic 2000 panel - Serum or Plasma COMP METABOLIC PANEL Lab Routine Malignant neoplasm of upper lobe of left lung (HCC) Expected: 01/10/2022, Expires: 03/12/2022 [facility] Work Phone: Comment on above: Expected: 01/10/2022 , Expires: 03/12/2022 Start: 01-10-2022 End: 03-12-2022 Magnesium [Mass/volume] in Serum or Plasma MAGNESIUM BLD Lab Routine Malignant neoplasm of upper lobe of left lung (HCC) Expected: 01/10/2022, Expires: 03/12/2022 [facility] Work Phone: Comment on above: Expected: 01/10/2022 , Expires: 03/12/2022 Start: 01-03-2022 End: 03-05-2022 CBC W Auto Differential panel - Blood CBC + DIFF Lab Routine Malignant neoplasm of upper lobe of left lung (HCC) Expected: 01/03/2022, Expires: 03/05/2022 [facility] Work Phone: Comment on above: Expected: 01/03/2022 , Expires: 03/05/2022 Start: 01-03-2022 End: 03-05-2022 Comprehensive metabolic 2000 panel - Serum or Plasma COMP METABOLIC PANEL Lab Routine Malignant neoplasm of upper lobe of left lung (HCC) Expected: 01/03/2022, Expires: 03/05/2022 [facility] Work Phone: Comment on above: Expected: 01/03/2022 , Expires: 03/05/2022 Start: 01-03-2022 End: 03-05-2022 Magnesium [Mass/volume] in Serum or Plasma MAGNESIUM BLD Lab Routine Malignant neoplasm of upper lobe of left lung (HCC) Expected: 01/03/2022, Expires: 03/05/2022 [facility] Work Phone: Comment on above: Expected: 01/03/2022 , Expires: 03/05/2022 Start: 12-10-2021 End: 02-09-2022 CBC W Auto Differential panel - Blood CBC + DIFF Lab Routine Malignant neoplasm of upper lobe of left lung (HCC) Acute kidney injury (HCC) Expected: 12/10/2021 (Approximate), Expires: 02/09/2022 [facility] Work Phone: Comment on above: Expected: 12/10/2021 (Approximate), Expires: 02/09/2022 Start: 12-10-2021 End: 02-09-2022 Comprehensive metabolic 2000 panel - Serum or Plasma COMP METABOLIC PANEL Lab Routine Malignant neoplasm of upper lobe of left lung (HCC) Acute kidney injury (HCC) Expected: 12/10/2021 (Approximate), Expires: 02/09/2022 [facility] Work Phone: Comment on above: Expected: 12/10/2021 (Approximate), Expires: 02/09/2022 Start: 12-03-2021 End: 02-02-2022 CBC W Auto Differential panel - Blood CBC + DIFF Lab Routine Malignant neoplasm of upper lobe of left lung (HCC) Expected: 12/03/2021, Expires: 02/02/2022 [facility] Work Phone: Comment on above: Expected: 12/03/2021 , Expires: 02/02/2022 Start: 12-03-2021 End: 02-02-2022 Comprehensive metabolic 2000 panel - Serum or Plasma COMP METABOLIC PANEL Lab Routine Malignant neoplasm of upper lobe of left lung (HCC) Expected: 12/03/2021, Expires: 02/02/2022 [facility] Work Phone: Comment on above: Expected: 12/03/2021 , Expires: 02/02/2022 Start: 11-30-2021 End: 01-30-2022 CBC W Auto Differential panel - Blood CBC + DIFF Lab Routine Malignant neoplasm of upper lobe of left lung (HCC) Acute kidney injury (HCC) Expected: 11/30/2021, Expires: 01/30/2022 [facility] Work Phone: Comment on above: Expected: 11/30/2021 , Expires: 01/30/2022 Start: 11-30-2021 End: 01-30-2022 Comprehensive metabolic 2000 panel - Serum or Plasma COMP METABOLIC PANEL Lab Routine Malignant neoplasm of upper lobe of left lung (HCC) Acute kidney injury (HCC) Expected: 11/30/2021, Expires: 01/30/2022 [facility] Work Phone: Comment on above: Expected: 11/30/2021 , Expires: 01/30/2022 Start: 11-19-2021 End: 01-19-2022 Basic metabolic 2000 panel - Serum or Plasma [facility] Work Phone: Comment on above: Expected: 11/19/2021 , Expires: 01/19/2022 Start: 11-14-2021 End: 01-14-2022 Basic metabolic 2000 panel - Serum or Plasma BASIC METABOLIC PNL Lab Routine Malignant neoplasm of upper lobe of left lung (HCC) Expected: 11/14/2021, Expires: 01/14/2022 [facility] Work Phone: Comment on above: Expected: 11/14/2021 , Expires: 01/14/2022 Start: 11-12-2021 End: 01-12-2022 CBC W Auto Differential panel - Blood CBC + DIFF Lab Routine Malignant neoplasm of upper lobe of left lung (HCC) Expected: 11/12/2021, Expires: 01/12/2022 [facility] Work Phone: Comment on above: Expected: 11/12/2021 , Expires: 01/12/2022 Start: 11-12-2021 End: 01-12-2022 Comprehensive metabolic 2000 panel - Serum or Plasma COMP METABOLIC PANEL Lab Routine Malignant neoplasm of upper lobe of left lung (HCC) Expected: 11/12/2021, Expires: 01/12/2022 [facility] Work Phone: Comment on above: Expected: 11/12/2021 , Expires: 01/12/2022 Start: 10-26-2021 End: 11-18-2022 Mri brain brain stem w/o w/contrast material MRI BRAIN WO/W IVCON Radiology Routine Malignant neoplasm of upper lobe of left lung (HCC) Expected: 10/26/2021, Expires: 11/18/2022 [facility] Work Phone: Comment on above: Expected: 10/26/2021 , Expires: 11/18/2022 Start: 09-11-2021 Covid-19 Vaccine (5 - Moderna series) Covid-19 Vaccine (5 - Moderna series) [facility] Start: 07-21-2021 DEPRESSION ASSESSMENT DEPRESSION ASS ESSMENT [facility] Start: 05-15-2021 COVID-19 VACCINE (3 - Booster for Moderna series) COVID-19 VACCINE (3 - Booster for Moderna series) [facility] Start: 03-21-2021 Influenza vaccination INFLUENZA (#1) [facility] Start: 02-07-2021 COVID-19 VACCINE (3 - Moderna series) COVID-19 VACCINE (3 - Moderna series) [facility] Start: 01-10-2021 COVID-19 VACCINE (3 - Moderna risk 4-dose series) COVID-19 VACCINE (3 - Moderna risk 4-dose series) [facility] Start: 01-10-2021 COVID-19 VACCINE (3 - Moderna risk series) COVID-19 VACCINE (3 - Moderna risk series) [facility] Start: 2017 RSV Vaccine (1 - 1-d ose 60+ series) RSV Vaccine (1 - 1-dose 60+ series) [facility] Start: 2017 RSV Vaccine (1 - Ris k 60-74 years 1-dose series) RSV Vaccine (1 - Risk 60-74 years 1-dose series) [facility] Start: 02-14-2012 PROSTATE CANCER SCREENING DISCUSSION PROSTATE CANCER SCREENING DISCUSSION [facility] Start: 02-14-2012 Prostate specific antigen measurement Prostate Cancer Screening Discussion [facility] Start: 2007 SHINGRIX VACCINE (1 of 2) SHINGRIX VACCINE (1 of 2) [facility] Start: 2002 COLOGUARD (FIT-DNA) COLOGUARD (FIT-D NA) [facility] Start: 2002 Colonoscopy COLONOSCOPY [facility] Start: 2002 COLORECTAL CANCER SCREENING COLORECTAL CANCER SCREENING [facility] Start: [address] COLONOGRAPHY [facility] Start: 2002 FECAL OCCULT BLOOD FECAL OCCULT BLOO D [facility] Start: 2002 Screening for malign ant neoplasm of colon [facility] Start: 2002 SIGMOIDOSCOPY SIGMOIDOSCOPY [facility] Start: 02-14-1992 Lipid 1996 panel - Serum or Plasma Lipid Screening [facility] Start: 02-14-1992 Lipid panel Lipid Screening [facility] Start: 02-14-1992 LIPID SCREEN LIPID SCREEN [facility] Start: 1987 Zoledronic acid therapy ALPHA- 1 ANTITRYPSIN DEFICIENCY SCREENING [facility] Start: 02-14-1976 SHINGRIX VACCINE (1 of 2) SHINGRIX VACCINE (1 of 2) [facility] Start: 1975 ANNUAL PCP TEAM CALL OR CONTACT CENTRE COACH ALYSSA DISEASE VISIT ANNUAL PCP TEAM CHRONIC DISEASE VISIT [facility] Start: 1975 Anxiety Screening Anxiety Screening [facility] Start: 1975 BP CONTROLLED (<130/80) BP CONTROLLE D (<130/80) [facility] Start: 1975 Depression Screening Depression Scre ening [facility] Start: 1975 Hepatitis B surface antibody level LDL CHOLESTEROL [facility] Start: 1975 HEPATITIS C SCREENING HEPATITIS C SC REENING [facility] Start: 1975 Hepatitis C screening Hepatitis C Jonny ken [facility] Start: 1975 HIV SCREENING HIV SCREENING [facility] Start: 1969 Adult depression screening assessment DEPRESSION SCREENING [facility] Start: 1963 PNEUMOCOCCAL (1 - PCV) PNEUMOCOCCAL (1 - PCV) [facility] Start: 1963 Pneumococcal Vaccine : 65+ (1 - PCV) Pneumococcal Vaccine: 65+ (1 - PCV) [facility] Start: 1963 Pneumococcal Vaccine : 65+ (1 of 2 - PCV) Pneumococcal Vaccine: 65+ (1 of 2 - PCV) [facility] Start: 1963 PNEUMOCOCCAL: 65+ (1 - PCV) PNEUMOCOCCAL: 65+ (1 - PCV) [facility] Start: 1957 ABDOMINAL AORTIC ANEURYSM SCREENING ABDOMINAL AORTIC ANEURYSM SCREENING [facility] Start: 1957 Abdominal aortic aneurysm screening Abdominal Aortic Aneurysm Screening [facility] Anion gap measurement [facility] aPTT in Platelet poo r plasma by Coagulation assay [facility] Basophils [#/volume] in Blood by Automated count [facility] Basophils/100 leukocytes in Blood by Automated count [facility] Biopsy soft tissue neck/thorax BIOPSY SOFT TISSUE NECK/CHEST Procedures Routine Malignant neoplasm of upper lobe of left lung (HCC) Ordered: 10/15/2022 [facility] Work Phone: Comment on above: Ordered: 10/15/2022 End: 05-08-2023 Bone &/joint imaging whole body NM BONE WHOLE BODY Radiology Routine Malignant neoplasm of unspecified part of unspecified bronchus or lung (HCC) 1 Occurrences starting 04/08/2022 until 05/08/2023 [facility] Work Phone: Comment on above: 1 Occurrences starti ng 04/08/2022 until 05/08/2023 End: 09-19-2023 Ct abdomen & pelvis w/contrast material CT ABD/PEL W IVCON Radiology Routine Malignant neoplasm of upper lobe of left lung (HCC) 1 Occurrences starting 08/20/2022 until 09/19/2023 [facility] Work Phone: Comment on above: 1 Occurrences starti ng 08/20/2022 until 09/19/2023 End: 09-19-2023 CT CHEST W IVCON CT CHEST W IVCON Radiology Routine 1 Occurrences starting 08/20/2022 until 09/19/2023 [facility] Work Phone: Comment on above: 1 Occurrences starti ng 08/20/2022 until 09/19/2023 CT Guidance for radiation treatment of Unspecified body region CT SIM PLANNING RADIATION ONCOLOGY Radiology Routine Malignant neoplasm of upper lobe of left lung (HCC) Ordered: 12/02/2023 [facility] Work Phone: Comment on above: Ordered: 12/02/2023 CT SIM PLANNING RADIATION ONCOLOGY CT SIM PLANNING RADIATION ONCOLOGY Radiology Routine Malignant neoplasm of upper lobe of left lung (HCC) Ordered: 03/20/2022 [facility] Work Phone: Comment on above: Ordered: 03/20/2022 CT SIM PLANNING RADIATION ONCOLOGY CT SIM PLANNING RADIATION ONCOLOGY Radiology Routine Malignant neoplasm of unspecified part of unspecified bronchus or lung (HCC) Ordered: 10/21/2022 [facility] Work Phone: Comment on above: Ordered: 10/21/2022 CT SIM PLANNING RADIATION ONCOLOGY CT SIM PLANNING RADIATION ONCOLOGY Radiology Routine Oropharnyx cancer (HCC) Ordered: 06/11/2023 [facility] Work Phone: Comment on above: Ordered: 06/11/2023 Eosinophils/100 leukocytes in Blood by Automated count [facility] Erythrocyte distribution width [Ratio] by Automated count [facility] Erythrocytes [#/volu me] in Blood [facility] Hematocrit [Volume Fraction] of [facility] Hemoglobin [Mass/volume] in [facility] Hemoglobin.gastroint est inal.lower [Presence] in Stool by Immunoassay FECAL OCCULT BLOOD TEST Lab Routine Malignant neoplasm of upper lobe of left lung (HCC) Ordered: 02/07/2022 [facility] Work Phone: Comment on above: Ordered: 02/07/2022 Hepatic function 200 0 panel - Serum or Plasma HEPATIC FUNCTION PNL Lab STAT Malignant neoplasm of upper lobe of left lung (HCC) 11/11/2022 2:47 PM EDT [facility] Work Phone: INR in Platelet poor plasma by Coagulation assay [facility] Leukocytes [#/volume ] corrected for nucleated erythrocytes in Blood by Automated coun [facility] Leukocytes [#/volume ] in Blood [facility] End: 04-14-2025 LUNG DIFFUSION CAPACITY (DLCO) LUNG DIFFUSION CAPACITY (DLCO) PFT Routine Centrilobular emphysema (HCC) Dyspnea on exertion 1 Occurrences starting 03/15/2024 until 04/14/2025 [facility] Comment on above: 1 Occurrences starti ng 03/15/2024 until 04/14/2025 Lymphocytes [#/volum e] in Blood by Automated count [facility] Lymphocytes/100 leukocytes in Blood by Automated count [facility] MCH [Entitic mass] b y Automated count [facility] MCHC [Mass/volume] b y Automated count [facility] MCV [Entitic volume] by Automated count [facility] Monocytes [#/volume] in Blood by Automated count [facility] Monocytes/100 leukocytes in Blood by Automated count [facility] End: 04-22-2025 MR Brain WO and W contrast IV MRI BRAIN WO/W IVCON Radiology Routine 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) 1 Occurrences starting 03/23/2024 until 04/22/2025 [facility] Work Phone: Comment on above: 1 Occurrences starti ng 03/23/2024 until 04/22/2025 MRA Head vessels WO contrast [facility] Neutrophils [#/volum e] in Blood by Automated count [facility] Neutrophils/100 leukocytes in Blood by Automated count [facility] End: 10-23-2023 NM PET/CT SKULL-THIGH SUBSEQUENT NM PET/CT SKULL-THIGH SUBSEQUENT Radiology Routine Lung nodules 1 Occurrences starting 09/23/2022 until 10/23/2023 [facility] Work Phone: Comment on above: 1 Occurrences starti ng 09/23/2022 until 10/23/2023 End: 09-23-2024 NM PET/CT SKULL-THIGH SUBSEQUENT NM PET/CT SKULL-THIGH SUBSEQUENT Radiology Routine 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) 1 Occurrences starting 08/25/2023 until 09/23/2024 [facility] Work Phone: Comment on above: 1 Occurrences starti ng 08/25/2023 until 09/23/2024 Nucleated erythrocyt es [Presence] in Blood by Automated count [facility] Patient Education [facility] Work Phone: Patient referral [facility] Work Phone: End: 12-03-2024 PET+CT Guidance for localization of tumor of Skull base to mid-thigh-- W [id number] IV NM PET/CT SKULL-THIGH SUBSEQUENT Radiology Routine 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) 1 Occurrences starting 11/04/2023 until 12/03/2024 [facility] Work Phone: Comment on above: 1 Occurrences starti ng 11/04/2023 until 12/03/2024 End: 03-04-2025 PET+CT Guidance for localization of tumor of Skull base to mid-thigh-- W [id number] IV NM PET/CT SKULL-THIGH SUBSEQUENT Radiology Routine 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 Swelling of arm Cancer associated pain 1 Occurrences starting 02/03/2024 until 03/04/2025 [facility] Comment on above: 1 Occurrences starti ng 02/03/2024 until 03/04/2025 Platelet mean volume [Entitic volume] in Blood by Automated count [facility] Platelets [#/volume] in Blood [facility] Prothrombin time (PT) [facility] End: 11-10-2022 Radiologic exam chest 2 views XR CHEST 2V FRONTAL/LAT Radiology Routine Malignant neoplasm of upper lobe of left lung (HCC) 1 Occurrences starting 10/11/2021 until 11/10/2022 [facility] Work Phone: Comment on above: 1 Occurrences starti ng 10/11/2021 until 11/10/2022 SPIROMETRY WITH DILA TOR IF OBSTRUCTED SPIROMETRY WITH DILATOR IF OBSTRUCTED PFT Routine Chronic obstructive pulmonary disease, unspecified COPD type (HCC) Lung nodule 01/29/2022 7:47 AM EDT [facility] Work Phone: End: 04-14-2025 SPIROMETRY WITH DILATOR IF OBSTRUCTED SPIROMETRY WITH DILATOR IF OBSTRUCTED PFT Routine Centrilobular emphysema (HCC) Dyspnea on exertion 1 Occurrences starting 03/15/2024 until 04/14/2025 [facility] Work Phone: Comment on above: 1 Occurrences starti ng 03/15/2024 until 04/14/2025 End: 03-04-2025 US Upper extremity vein - left US DVT UPPER LEFT Radiology STAT 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) Swelling of arm 1 Occurrences starting 02/03/2024 until 03/04/2025 [facility] Comment on above: 1 Occurrences starti ng 02/03/2024 until 03/04/2025 [facility] Immunizations Immunization Date Immunization Notes Care Provider Fa monica 12-13-2020 COVID-19 vaccine, fu ll dose (MODERNA) Aracelis Carrillo APRN.ACCESS LEAD Work Phone: [facility] 11-15-2020 COVID-19 vaccine, fu ll dose (MODERNA) Aracelis Carrillo APRN.ACCESS LEAD Work Phone: [facility] 10-13-2020 diphtheria, tetanus toxoids and pertussis vaccine Aracelis Carrillo APRN.ACCESS LEAD Work Phone: [facility] Payers Date Payer Category Payer Self-pay [id number] 2023 Private Health Insurance [facility] [id number] 2022 Medicare MEDICARE MEDICAR E A AND B [id number] 2022-[facility] [phone] [address] [address] [place] [address] Medicare [id number] 2022 Medicare [id number] 2019 Medicaid [id number] 2000 Medicaid [id number] 1959 Medicare [id number] 1959 Unknown [id number] 1957 Unknown [id number] 2.16.840.1.843264.3.579.2.6 47 1957 Unknown [id number] 2.16.840.1.971742.3.579.2.5 93 1957 Unknown [id number] 2.16.840.1.381373.3.579.2.5 93 1957 Unknown [id number] 2.16.840.1.720341.3.579.2.5 93 1957 Unknown [id number] 2.16.840.1.442866.3.579.2.5 93 1957 Unknown [id number] 2.16.840.1.153730.3.579.2.5 93 1957 Unknown [id number] 2.16.840.1.701517.3.579.2.5 93 1957 Unknown [id number] 2.16.840.1.933715.3.579.2.5 93 1957 Unknown [id number] 2.16.840.1.524062.3.579.2.5 93 1957 Unknown [id number] 2.16.840.1.646037.3.579.2.5 93 1957 Unknown [id number] 2.16.840.1.448383.3.579.2.5 93 1957 Unknown [id number] 2.16.840.1.437047.3.579.2.3 56 1957 Unknown [id number] 2.16.840.1.009335.3.579.2.7 1957 Unknown [id number] 2.16.840.1.057300.3.579.2.7 1957 Unknown [id number] 2.16.840.1.428364.3.579.2.7 27 -27-1957 Unknown [id number] 2.16.840.1.202782.3.579.2.7 1957 Unknown [id number] 2.16.840.1.810941.3.579.2.7 1957 Unknown [id number] 2.16.840.1.830205.3.579.2.7 1957 Unknown [id number] 2.16.840.1.774238.3.579.2.7 1957 Unknown [id number] 2.16.840.1.345447.3.579.2.7 1957 Unknown [id number] 2.16.840.1.011502.3.579.2.7 1957 Unknown [id number] 2.16.840.1.532109.3.579.2.7 1957 Unknown [id number] 2.16.840.1.021850.3.579.2.7 1957 Unknown [id number] 2.16.840.1.955302.3.579.2.7 1957 Unknown [id number] 2.16.840.1.624931.3.579.2.7 1957 Unknown [id number] 2.16.840.1.766350.3.579.2.7 1957 Unknown [id number] 2.16.840.1.729153.3.579.2.7 1957 Unknown [id number] 2.16.840.1.769918.3.579.2.7 1957 Unknown [id number] 2.16.840.1.545924.3.579.2.7 Unknown [id number] 2.16.840.1.738846.3.579.2.5 31 Unknown [id number] 2.16.840.1.446334.3.579.2.5 31 Unknown [id number] 2.16.840.1.730812.3.579.2.5 31 Unknown [id number] 2.16.840.1.351270.3.579.2.5 31 Social History Date Type Detail Facility Start: 07-03-2021 End: 03-15-2024 Tobacco smoking status NHIS Ex-smoker [facility] Start: 07-21-1970 End: 07-13-2020 History of tobacco use Current smoker [facility] Start: 07-21-1970 End: 07-21-2020 History of tobacco use Cigarette Smoker [facility] Start: 07-03-2021 End: 03-15-2024 Tobacco use and exposure Smokeless tobacco non-user [facility] Start: 10-11-2021 End: 03-17-2024 Alcohol intake Current drinker of alcohol (finding) [facility] Start: 10-11-2021 End: 11-20-2022 Alcohol intake [facility] Start: 09-25-2021 End: 03-26-2022 Tobacco Comment was smoking on and off fully quit 09/14/21 [facility] Start: 1955 Sex Assigned At Not on file [facility] Start: 04-27-2021 End: 06-11-2022 Exposure to SARS-CoV-2 (event) Not sure [facility] Start: 10-19-2021 History SDOH Alcohol Comment 4-9 beers per day [facility] Start: 04-16-2021 Tobacco smoking stat us WAIS Current some day smoker [facility] Start: 1955 Sex Assigned At Male F [facility] History of tobacco use Passive smoker [facility] Start: 11-20-2022 End: 01-28-2023 Tobacco use panel [facility] Adult Depression Screening Assessment 0 [facility] Start: 07-21-1970 Tobacco smoking stat us WAIS Light tobacco smoker [facility] Goals Date Patient Goal Desired Activity /State Functional Status Date Assessment Result Facility 03-19-2024 Functional status Patient at [facility] Work Phone: Mental Status Date Assessment Result Facility 03-19-2024 Cognitive function Cognitive Sta tus Patient at [facility] Work Phone: Clinical Notes 05-28-2021 to [...] (10:39 AM) SM Confirmed patient is under [facility] so they should be ordering all medications. [facility] 04-20-2024 Miscellaneous Notes Formattin g of this note is different from the original. Images from the original note were not included. Julieth Tapia RN You; Denita Rai RN18 minutes ago (10:39 AM) SM Confirmed patient is under [facility] so they should be ordering all [...] take 1 tablet by mouth at bedtime Julieht Tapia RN April 19, 2024 documented in this encounter [facility] 04-20-2024 Telephone encount er Note Patient was recently admitted to hospice and appointment was cancelled per RNCC. Does patient still need this? Lisa Figueroa [facility] 04-19-2024 Telephone encount er Note Palliative Medicine Care Coordination Follow up Phone Call Patient identified by name and : Yes Spoke to: patient Nurse calling to follow up on denial of refill for Trazodone since on Olanzapine. Patient reports he is under hospice care now with [facility] and they are prescribing his medications. Let him know we would update Christina VILLEDA. List membership updated. No future Pall Med appts. Julieth Tapia RN April 19, 2024 10:39 AM [facility] 04-19-2024 Miscellaneous Notes Formattin g of this note might be different from the original. Palliative Medicine Care Coordination Follow up Phone Call Patient identified by name and : Yes Spoke to: patient Nurse calling to follow up on denial of refill for Trazodone since on Olanzapine. Patient reports he is under hospice care now with [facility] and they are prescribing his medications. Let him know we would update Christina VILLEDA. List membership updated. No future Pall Med appts. Julieth Tapia RN April 19, 2024 10:39 AM documented in this encounter [facility] 04-19-2024 Telephone encount er Note Coverage for Pipo Fish APRN Reviewed most recent notes. Patient is on olanzapine, not trazodone. Refilled not provided. Licha Suresh APRN.RONAL [facility] Work Phone: 04-19-2024 Telephone encount er [...] bedtime Julieth Tapia RN April 19, 2024 [facility] 04-06-2024 Telephone encount er Note All appointments have been cancelled. Thanks! Lisa Figueroa [facility] 04-06-2024 Miscellaneous Notes Formattin g of this note might be different from the original. All appointments have been cancelled. Thanks! Lisa Figueroa FYI: Pt signed with [facility] on Friday. Clerical: Please cancel all future appointments. Denita Rai, RN Denita Rai, RN documented in this encounter [facility] 04-06-2024 Telephone encount er Note Pt signed on w/ Cr. Message left / [facility] Central Scheduling advising they cancel our request for MRI. Denita Rai RN [facility] 04-06-2024 Miscellaneous Notes Formattin g of this note might be different from the original. Pt signed on w/ [facility]. Message left / [facility] Central Scheduling advising they cancel our request for MRI. Denita Rai RN Per previous message, I gave them cardiology number to call to ask questions that I was not able to answer. Bernadine Rodriguez RN [facility] states Pérez is still not scheduled. He has a femoral artery stent and they need more information on that before he can be scheduled. Can you help with this information? Call received from Bala at [facility] who states he needs to know of [...] the MRI needed a pre certification through [facility] & that I faxed the paperwork & order over to them today. Once the pre certification is done then we will set up the appointment at [facility] for the MRI. [place] Clerical: Please schedule MRI @ [facility]. Denita Rai RN Pt notified and verbalizes understanding. Follows w/ [facility] already. Had an appointment w/ Christina just last week on 03/17. BRM: MRI order pended. Denita Rai RN Would recommend brain MRI. Please schedule at [facility] or [facility] facility. Would hold Lumakras for [...] has pt at the registration desk at [facility] waiting for a brain scan to be [...] Can f/u tomorrow? Thanks! Tomasa: Please scan [facility] records when available. Thanks! Denita Rai RN Pt presented to office w/ mental status changes. Dr Grigsby advised he go to ER for evaluation. Report phoned to KERRY Red @ [facility]. H&P, today's labs, and med list faxed. Denita Rai RN documented in this encounter [facility] 04-06-2024 Telephone encount er Note Pt signed on / [facility]. Message left [facility] Scheduling advising they cancel our request for MRI. Denita Rai RN [facility] Work Phone: 04-06-2024 Miscellaneous Notes Formattin g of this note might be different from the original. Pt signed on / [facility]. Message left [facility] Central Scheduling advising they cancel our request for MRI. Denita Rai RN Clerical: Please make sure MRI appointment gets scheduled at [facility]. Precert completed. They were supposed to be calling pt. Refer to 's instructions below. Thanks! Denita Rai RN Best that we see him after the MRI if it can be done soon. Otherwise schedule appointment for 04/08. BRM: Pt home from hospital on Eliquis, Levaquin, and Prednisone. Will be seeing his PCP today. Still waiting for the MRI @ [facility]. Looks like it's been approved and they [...] Patient reminded of her follow-up appointment with [facility] provider, Dr Grigsby on TBD: Informed pt and pt's son, Maren Sheldon that our office would be contacting them w/ an appointment. Next Federal Appellate Law Clerk outreach with patient scheduled? Advised they call [...] Denita Rai RN documented in this encounter [facility] 04-06-2024 Telephone encount er Note FYI: Pt signed with [facility] on Friday. Clerical: Please cancel all future appointments. Denita Rai RN Denita Rai RN [facility] Work Phone: 04-05-2024 Telephone encount er Note Per previous message, I gave them cardiology number to call to ask questions that I was not able to answer. Bernadine Rodriguez RN [facility] Work Phone: 04-05-2024 Telephone encount er Note [facility] states Pérez is still not scheduled. He has a femoral artery stent and they need more information on that before he can be scheduled. Can you help with this information? [facility] 04-01-2024 Telephone encount er Note FYI: Lorraine from [facility] reports that the pt presented [...] verbalizes understanding and agrees. Denita Rai RN [facility] Work Phone: 04-01-2024 Miscellaneous Notes Formattin g of this note might be different from the original. FYI: Lorraine from [facility] reports that the pt presented [...] Denita Rai RN documented in this encounter [facility] 03-31-2024 Telephone encount er Note Clerical: Please make sure MRI appointment gets scheduled at [facility]. Precert completed. They were supposed to be calling pt. Refer to Dr's instructions below. Thanks! Denita Rai RN [facility] 03-31-2024 Telephone encount er Note Best that we see him after the MRI if it can be done soon. Otherwise schedule appointment for 04/08. [facility] 03-31-2024 Telephone encount er Note BRM: Pt home from hospital on Eliquis, Levaquin, and Prednisone. Will be seeing his PCP today. Still waiting for the MRI @ [facility]. Looks like it's been approved and they will be reaching out to pt to schedule. Do you want to wait for the MRI before seeing pt or should we go ahead an schedule a follow up in the meantime? Denita Rai RN [facility] 03-31-2024 Telephone encount er Note EMERGENCY [...] Patient reminded of her follow-up appointment with [facility] provider, Dr Grigsby on TBD: Informed pt and pt's son, Maren Sheldon that our office would be contacting them w/ an appointment. Next Federal Appellate Law Clerk outreach with patient scheduled? Advised they call [...] next outreach appointment? YES Denita Rai RN [facility] 03-31-2024 Telephone encount er Note DISCHARGE CALL BACK Today's date: March 31, 2024 Notified of Pt discharge by: Call placed to [facility] for follow up. Patient discharged on 03/30/24 from [facility] Med Surg to Home Primary Cancer Diagnosis: Metastatic Lung Cancer Admitting Diagnosis: Acute Respiratory Failure Discharge Summary/SBAR reviewed: Yes Handoff Discussed with Transitional Federal Appellate Law Clerk: No, unavailable Psychosocial Risk Factors: None If patient discharged to SNF/Rehab Facility, phone call completed to reinforce discharge instructions and follow up: N/A Call Disposition: Readmitted or In Emergency Department. Pt presented to ER due to c/o left arm swelling. Denita Rai RN [facility] Work Phone: 03-31-2024 Miscellaneous Notes Formattin g of this note might be different from the original. DISCHARGE CALL BACK Today's date: March 31, 2024 Notified of Pt discharge by: Call placed to [facility] for follow up. Patient discharged on 03/30/24 from [facility] Med Surg to Home Primary Cancer Diagnosis: Metastatic Lung Cancer Admitting Diagnosis: Acute Respiratory Failure Discharge Summary/SBAR reviewed: Yes Handoff Discussed with Transitional Federal Appellate Law Clerk: No, unavailable Psychosocial Risk Factors: None If patient discharged to SNF/Rehab Facility, phone call completed to reinforce discharge instructions and follow up: N/A Call Disposition: Readmitted or In Emergency Department. Pt presented to ER due to c/o left arm swelling. Denita Rai RN documented in this encounter [facility] 03-31-2024 Telephone encount er Note Call received from Bala at [facility] who states he needs to know of [...] him. was as well. Bernadine Rodriguez RN [facility] 03-31-2024 Telephone encount er Note MRI was approved, however pt hasn't been scheduled for this. Spoke with Bala and he will call pt to schedule. My number given to Bala to call our office back once scheduled. Bernadine Rodriguez RN [facility] 03-29-2024 Telephone encount er Note The following approved medication requests have been transmitted electronically. Requested Prescriptions Signed Prescriptions Disp Refills dexAMETHasone (DECADRON) 4 mg tablet 30 tablet 1 Sig: take 1 tablet by mouth twice daily with meals Authorizing Provider: ESTELLA FISH RN [facility] 03-29-2024 Miscellaneous Notes Formattin g of [...] Marichuy Coronel RN documented in this encounter [facility] 03-29-2024 Telephone encount er Note pharmacy phones requesting refills as follows: Last ordered 03/09/24 Last pall med visit on 03/17/24 Future appt 04/14/24 Requested Prescriptions Pending Prescriptions Disp Refills dexAMETHasone (DECADRON) 4 mg tablet [Pharmacy Med Name: dexamethasone 4 mg tablet] 30 tablet 1 Sig: take 1 tablet by mouth twice daily with meals Please review and advise. Marichuy Coronel RN [facility] 03-29-2024 Telephone encount er Note MRI Pending still. [facility] 03-24-2024 Telephone encount er Note Called patient & let him know that the MRI needed a pre certification through [facility] & that I faxed the paperwork & order over to them today. Once the pre certification is done then we will set up the appointment at [facility] for the MRI. [place] [facility] 03-23-2024 Telephone encount er Note Clerical: Please schedule MRI @ [facility]. Denita Rai RN [facility] 03-23-2024 Telephone encount er Note Pt notified and verbalizes understanding. Follows w/ Diann Wright already. Had an appointment w/ Christina just last week on 03/17. BRM: MRI order pended. Denita Rai RN [facility] 03-23-2024 Telephone encount er Note Would recommend brain MRI. Please schedule at [facility] or [facility] facility. Would hold Lumkemiras for now. Recommend referral to palliative medicine to assist with symptom control and try to wean some of his other medications. Will see him back in 2 weeks to review current condition and discuss options for chemotherapy. [facility] 03-23-2024 Telephone encount er Note Records scanned. [facility] 03-23-2024 Telephone encount er Note FYI: [...] you want to order? Denita Rai RN [facility] 03-20-2024 Consult note Note Date/Time March 20, 2024 11:06am [facility] [address] [place] [address] Neurology Consult Note Signed Patient: Cristal Gu MR#: [id number] : 1955 Acct:[id number] Age/Sex: 69 / M Adm Date: 4 Loc: 3T Room: [address] [place] [address] Type: ADM INOo Attending Dr: Jair Nichols MD Copies to: NON STAFF MD Denisse Olivia DO~ HPI Consult Date: 03/20/24 Senior Oracle Developer: Denisse Dial DO Reason for consult: AMS [...] exericsing lately. He previously went to the [facility] and walked 2 miles. He quite [...] later on as he changed his mind. [facility] Medical History Diverticulosis History of [...] Confirmed 03/19/24] aspirin 81 mg tablet,delayed release (Fleice Low Dose Aspirin) 81 mg PO DAILY [...] of dysmetria with good rapid alternating movements [id number] Tone is physiologic Sensation is intact to [...] <Electronically signed by DO Denisse Dial> 03/20/24 [id number] [facility] Work Phone: 1(645) 391-827808-31-2024 History and physical note Author Jair Nichols [facility] March 19, 2024 10:21pm Note Date/Time March 19, 2024 10 :21pm [facility] [address] [place] [address] Hospitalist H&P Signed Patient: Cristal Gu MR#: [id number] : 1955 Acct:[id number] Age/Sex: 69 / M Adm Date: 4 Loc: 3T Room: [address] [place] [address] Type: ADM INOo Attending Dr: Jair Nichols [...] inpatient consult. He sees Dr. Grigsby from [facility]. Patient may follow-up with him as [...] <Electronically signed by Jair Nichols MD> 03/19/241 [facility] Work Phone: 1(590) 634-968708-30-2024 Telephone encounter Note* Telephone Encounter - Bernadine [...] will take him back. Bernadine Rodriguez RN [facility]08-30-2024 Telephone encounter Note* Telephone Encounter - Bernadine Rodriguez RN - 03/19/2024 9:07 AM EDT Spoke with John, pt's family member who states she has pt at the registration desk at [facility] waitingfor a brain scan to be done, [...] records later today. Thanks Bernadine Rodriguez RN [facility]08-30-2024 Telephone encounter Note* Telephone Encounter - Vanessa Carl - 03/19/2024 7:46 AM EDT Patient left ER without being seen. [facility]08-29-2024 Telephone encounter Note* Telephone Encounter - Denita Rai RN - 03/18/2024 3:41 PM EDT Bernadine: Can f/u tomorrow? Thanks! Tomasa: Please scan [facility] records when available. Thanks! Denita Rai RN [facility]08-29-2024 Telephone encounter Note* Telephone Encounter - Denita Rai RN - 03/18/2024 2:01 PM EDT Pt presented to office w/ mental status changes. Dr Grigsby advised he go to ER for evaluation. Report phoned to KERRY Red @ [facility]. H&P, today's labs, and med list faxed. Denita Rai RN [facility]08-29-2024 Nurse Note* Pavithra Jacinto MA - 03/18/2024 1:25 PM EDT Patient son states that this morning he was acting strange, says that he put teeth in microwave, other son said he was eating dog food-Okie states he was picking it up because it was on the floor. They are not sure if it is his medications or not. Pavithra Jacinto MA [facility]08-29-2024 Nurse Note* Pavithra Jacinto MA [...] not. Pavithra Jacinto MA documented in this encounterSum[facility]2024 [facility] History of Present illness Narrative* Nina Grigsby MD - 03/17/2024 1:56 PM EDT PATIENT NAME: Cristal Gu DATE: 03/18/2024 PRIMARY CARE PHYSICIAN: Dr. Christina Azul OTHER PHYSICIANS: Dr. Verito Whelan, Dr. Marinane Fields, Dr. Damon Tse ([facility]) Christina Tavarez Portions of this [...] 2019: Peripheral arterial disease (HCC) Comment: R GARDENER stent PAST SURGICAL HISTORY: PAST SURGICAL HISTORY 2019: BACK SURGERY HX 2016: CABG (4) VEIN GRAFTS & ARTERIAL GRAFT(S) 2019: LOWER EXTREMITY FUR NAILER W/WO STENT; Right Comment: right common femoral [...] swelling and hand discoloration resolved. PATHOLOGY: 10/21/2022 [id number] NGS analysis KRAS G12C mutation present, 5.2% [...] No hypermetabolic osseous lesions 01/03/2023 Chest CTA ([facility]) Bilateral hilar soft tissue nodules concerning for [...] prior study, as above. 04/12/2022 Bone scan ([facility]) Degenerative findings. No evidence of metastatic [...] tonsillar mass. The patient was reevaluated by [facility] May 2023 and it was [...] it was recommended he proceed to the [facility] emergency room today for urgent evaluation to include brain scan. Based on scan results neurology consult should be considered. Nina Grigsby MD documented in this encounterSum[facility]-28-2024 [facility]08-28-2024 History of Present illness Narrative* Estella Fish APRN.ACCESS LEAD - 03/17/2024 12:38 PM EDT PALLIATIVE MEDICINE VIRTUAL PROGRESS NOTE SERVICE DATE: 03/17/2024 This visit was conducted as a virtual/telehealth visit, in lieu of a face to face encounter,patient's identity and physical location were verified at the time of this visit. Either the patient or their legal client services representative has been informed of the risks [...] increased anxiety with increasing pain. Modified ESAS ([place] Symptom Assessment Scale) Information Provided By: Patient [...] was identified. 03/17/2024 by Estella Fish, RACHEL, DRAWING IN MACHINE TENDER HELPER.ACCESS LEAD Urine Screen Lab Results Component Value Date UAMPH Negative 09/26/2021 UBARB2 Negative 09/26/2021 UBENZ Negative 09/26/2021 UCOC2 Negative 09/26/2021 UOPI Negative 09/26/2021 UOXYC Negative 09/26/2021 UPCP Negative 09/26/2021 UTHC Negative 09/26/2021 UETOH <11 09/26/2021 Assessment & Plan (Z51.5) Palliative care by specialist (primary encounter diagnosis) - Reviewed philosophy of palliative medicine - Discussed services offered by [facility] - Provided support -Discussed services offered [...] Zofran prn every 8 hours - Increase [id number] mg p.o. at bedtime -Small frequent meals [...] lead to or permanent disability - Continue [id number] mg p.o. at bedtime - Effexor 37.5 [...] 4 Weeks in person Estella Fish NP, DRAWING IN MACHINE TENDER HELPER.ACCESS LEAD March 17, 2024 1:24 PM I spent a total of 35 minutes on the date of the service which included preparing to see the patient, [id number] patient care, completing clinical documentation, obtaining and/or reviewing separately obtained history, performing a medically appropriate examination, counseling and educating the pat ient/family/caregiver, ordering medications, tests, or procedures, communicating with other HCPs (not separately reported), independently interpreting results (not separately reported), communicatingresults to the patient/family/caregiver, and care coordination (not separately reported). This note may have been partially generated using the [employer] voice recognition system. While every effort was made to correct voice recognition errors, kindly be aware that some errors may occasionally occur.occur documented in this encounterSumma Health [facility]08-28-2024 [facility]08-26-2024 NoteM[facility]08-26-2024 History of Present illness Narrative* Merary Lucas [...] of breath. Takes anxiety medication which helps. [employer] appt tomorrow No recent pneumonia. He has been coughing up green things. He took an antibiotic, a pink pill, couple weeks ago. Maybe amoxicillin 02/04. Sounds like he was treated for bronchitis or exacerbation, unclear to me, at an outside facility. He has gone to ER for sob. Up until a couple of months ago he was walking 2 miles at the [facility]. 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 Former smoker: quit about a [...] 2019: Peripheral arterial disease (HCC) Comment: R GARDENER stent PAST SURGICAL HISTORY 2019: BACK SURGERY HX 2016: CABG (4) VEIN GRAFTS & ARTERIAL GRAFT(S) 2019: LOWER EXTREMITY FUR NAILER W/WO STENT; Right Comment: right common femoral [...] Lucas MD Pulmonary & Critical Care Medicine [facility] [place] March 15, 2024 1:01 PM I spent a total of 40 minutes on the date of the service which included preparing to see the patient, tcxm-[id number] patient care, completing clinical documentation, obtaining and/or reviewing separately obtained history, performing a medically appropriate examination, counseling and educating the pat ient/family/caregiver, ordering medications, tests, or procedures, communicating with other HCPs (not separately reported), independently interpreting results (not separately reported), and communicating results to the patient/family/caregiver. documented in this encounterSumma Health [facility]08-[facility]-2024 Telephone encounter Note * Telephone [...] Fish this 03/17 @ 1030 in our [place] office. Appointment details written down per pt. Pt denies any other questions at this time. Denita Rai RN [facility] Work Phone: 1(802) 168-193308-26-2024 Miscellaneous Notes* Telephone Encounter - Denita Rai RN - 03/15/2024 9:49 AM EDT Pt calls requesting the address for today's appointment in [place]. Address provided to pt. Name of physician spelled out over the phone per pt request as well. Pt also asks for the date and time of hisPall Med appointment. Informed pt that he is currently scheduled to see [facility] this 03/17 @ 1030 in our [place] office. Appointment details written down per pt. Pt denies any other questions at this time. Denita Rai RN documented in this encounterSumma Health Wad[facility]08-20-2024 Telephone encounter Note * Telephone [...] Tapia RN March 09, 2024 2:10 PM [facility]08-20-2024 Miscellaneous Notes* Telephone Encounter - Julieth Tapia RN - 03/09/2024 2:05 PM EDT Palliative Medicine Care Coordination Follow up Phone Call Patient returned our call. Patient identified by name and : Yes Spoke with Pérez. Let him know Christina VILLEDA would like to trial a steroid and she sent a prescription to his [facility] pharmacy. Instructed him to follow [...] try a dex pain taper, sent to [facility] He can also place two [...] medication he could take. His pharmacy is [facility] in [place]. Please advise. Thanks! Deborah N Alana, RN documented in this encounterSumma Health Wadsworth - [facility]ittman [facility]08-20-2024 Telephone encounter Note * Telephone Encounter - Denita Rai RN - 03/09/2024 1:52 PM EDT Pt calls w/ c/o increased pain. Informed pt that Pall Med attempted to contact him earlier today, but his voicemail was full. Phone number for Pall Med given to pt. Pt verbalizes understanding and will call them back. Denita Rai RN [facility] Work Phone: [phone] Telephone encounter Note* Telephone Encounter - Julieth Tapia RN - 03/09/2024 1:27 PM EDT Palliative Medicine Care Coordination Follow up Phone Call Telephone call to Cristal Gu and his brother Christina Gu with no answer, both VM's say VM box full and unable to leave a message. Julieth Tapia RN March 09, 2024 1:30 PM [facility]08-20-2024 Telephone encounter Note* Telephone Encounter - Estella Fish APRN.RONAL - 03/09/2024 1:17 PM EDT Lets try a dex pain taper, sent to [facility] He can also place two transdermal Fentanyl Patches on for a total of 100 mcg/hr [facility]08-20-2024 Telephone encounter Note* Telephone Encounter [...] medication he could take. His pharmacy is [facility] in [place]. Please advise. Thanks! Deborah Warner, RN [facility]08-20-2024 Telephone encounter Note* Telephone Encounter - Yusef Pandya PA-C - 03/09/2024 11:30 AM EDT Orders in Yusef Pandya PA-C [facility] Work Phone: [phone] Miscellaneous Notes* Telephone Encounter - Yusef Pandya [...] Dr. Grigsby on 03/18 documented in this encounterSumma Health Wadsworth - Rittman [facility] Center08-20-2024 Telephone encounter Note * Telephone Encounter - Hannah Oglesby RN - 03/09/2024 11:10 AM EDT Pt here for PET today-wt decreased to 48 kg, states he has no appetite, not eating or drinking much . If agreeable please place IV fluid order for today while here for PET. Pt states fluids may 'perk me up F/u with Dr. Grigsby on 03/18 [facility]08-20-2024 History of Present illness Narrative* [...] 1023 PATIENT DISCHARGED TO: Ambulatory patient, left [place] department area. A Diagnostic radioactive procedure has taken place, with no further precautions necessary other than routine body substance precautions. More information regarding radiation safety can be found usingthis link: [email or web address] SIGNATURE: RT Charis(Marcella) PATIENT NAME: Cristal Gu DATE: March 09, 2024 TIME: 10:38 AM PAGER/CONTACT #: documented in this encounterSumma Health Wadsworth - [facility]itt[facility] Center08-20-2024 [facility]-2024 NoteM[facility]08-13-2024 Telephone encounter Note* Telephone Encounter - [place] Kearney - 03/02/2024 10:53 AM EDT Patient is scheduled with Dr Guaman in the [place] office on 03/09/2024 at 10 am per Tomasa from care everywhere. Spoke to patient & he stated he wasn't at home & was going to call us later to give us the appointment date & time of the ENT appointment. So, patient aware of appointment. MONA Hand [facility]08-13-2024 Miscellaneous Notes* Telephone Encounter - [place] Kearney - 03/02/2024 10:53 AM EDT Patient is scheduled with Dr Guaman in the [place] office on 03/09/2024 at 10 am per [...] - 02/24/2024 1:46 PM EDT Spoke to corporate scheduler at Dr Hayward's office at [phone] at [facility]. She needed the referral in order to get patient scheduled. Faxed referral order over to their office at [phone]. I will call the office back to [...] out? Denita Rai RN documented in this encounterSumma Health Wadsworth - [facility] Center08-12-2024 Telephone encounter Note * Telephone Encounter - Estella Fish APRN.CNP - 03/01/2024 3:22 PM EDT It has been over 90 days since I saw Maren, he has missed appts. I cn give him 7 days worth of meds, but he needs to see me before I can prescribe more. [facility]08-12-2024 Miscellaneous Notes* Telephone Encounter - [...] Get Hernandes - 03/01/2024 12:03 PM EDT [facility] is calling today regarding Refill Request Patient has been identified by name and birthdate. Requesting delivery method: call/escript to: [facility] [place]/ [place] Additional Concern: N/A Requesting response back: N/A [phone] (home) Get Escobar March 01, 2024 documented in this encounterSumma Health Wadsworth - [facility] Center08-12-2024 Telephone encounter Note * Telephone [...] Please review and advise. Arianna Saha RN [facility]08-12-2024 Telephone encounter Note* Telephone Encounter - Get Hernandes - 03/01/2024 12:03 PM EDT [facility] is calling today regarding Refill Request Patient has been identified by name and birthdate. Requesting delivery method: call/escript to: [facility] [place] [place] Additional Concern: N/A Requesting response back: N/A [phone] (home) Get [facility] March 01, 2024 [facility]08-08-2024 Telephone encounter Note* Telephone Encounter - Bernadine Davis - 02/26/2024 10:16 AM EDT Spoke with Dr Douglas office he will be looking over his stuff today and then they will call patient to schedule [facility]08-07-2024 Telephone encounter Note* Telephone Encounter - Vanessa Carl - 02/25/2024 10:44 AM EDT Records faxed to Dr. Hayward. [facility]08-06-2024 Telephone encounter Note* Telephone Encounter - [place] Kearney - 02/24/2024 1:46 PM EDT Spoke to corporate scheduler at Dr Hayward's office at [phone] at [facility]. She needed the referral in order to get patient scheduled. Faxed referral order over to their office at [phone]. I will call the office back to check on status of appointment tomorrow or next day. MONA Hand [facility]08-06-2024 Telephone encounter Note* Telephone Encounter - Denita Rai RN - 02/24/2024 12:19 PM EDT Clerical: Please refer pt to ENT. Abnormal CT neck. Recommending scope. Pt would like seen JATINDER. Local or [facility]. Whichever can see him 1st. Denita Rai RN [facility]08-06-2024 Telephone encounter Note* Telephone Encounter [...] since [facility]M is out? Denita Rai RN [facility]08-02-2024 Telephone encounter Note* Telephone Encounter - Paty Chapman APRN.CNP - 02/20/2024 2:51 PM EDT PDMP website checked and validated. All prescriptions have been APPROPRIATELY filled. No suspiciousactivity was identified. 02/20/2024 by Paty Chapman APRN.CNP [facility]08-02-2024 Miscellaneous Notes* Telephone Encounter - [...] never called when ran out. Oxycodone 10-20mg [id number] PRN- 3x per day 2 tabs at [...] Yolande Bishop - 02/20/2024 11:04 AM EDT [place] [facility] is calling today regarding Numbness and [...] birthdate. Requesting response back: call at home [phone] Yolande Bishop February 20, 2024 documented in this encounterSumma Health Wadsworth - [facility] Center08-02-2024 Telephone encounter Note * Telephone Encounter - Arianna Saha RN - 02/20/2024 1:44 PM EDT Tc spoke to Cristal Gu, He feels his pain in his arm is worse. Not new pain. Pain where he had radiation worse as they day goes on. Medication review: Lyrica- 75mg TID- stopped taking- needs refill never called when ran out. Oxycodone 10-20mg [id number] PRN- 3x per day 2 tabs at [...] Please review and advise. Arianna Saha RN [facility]08-02-2024 Telephone encounter Note* Telephone Encounter [...] out of the office? Denita Rai RN [facility]08-02-2024 Miscellaneous Notes* Telephone Encounter - [...] office? Denita Rai RN documented in this encounterSumma Health Wadsworth - [facility] Center08-02-2024 Telephone encounter Note * Telephone Encounter - Yolande Bishop - 02/20/2024 11:04 AM EDT [facility] is calling today regarding Numbness and [...] birthdate. Requesting response back: call at home [phone] Yolande Bishop February 20, 2024 [facility]08-01-2024 Telephone encounter Note* Telephone Encounter - Rolanda Arrington - 02/19/2024 1:55 PM EDT Called [facility] office. Patient is scheduled to see Dr Beyer on 03/02 @ 10:30. Rolanda Lawrence [facility]08-01-2024 Miscellaneous Notes* Telephone Encounter - Rolanda Arrington - 02/19/2024 1:55 PM EDT Called [facility] office. Patient is scheduled to see Dr Beyer on 03/02 @ 10:30. Rolanda Lawrence * Telephone Encounter - Rolanda Arrington - 02/18/2024 1:22 PM EDT Called [facility] office spoke with Emperatriz. She states she will reach out to patient this afternoon to get scheduled. Rolanda Lawrence * Telephone Encounter - Enrique Boland - 02/09/2024 10:42 AM EDT Confirmed referral was received at Vascular. They are currently working on referral and going to call patient. * Telephone Encounter - [facility]el [facility]oples Hospital[facility] - 02/05/2024 1:10 PM EDT Records re-faxed to [facility]. * Telephone Encounter - Rolanda Arrington - 02/05/2024 12:51 PM EDT Called [facility] they have not received this referral and asked us to please refax it tothem. Tomasa: Please refax this referral. Thank You, Rolanda Lawrence * Telephone Encounter - Vanessa Carl - 02/04/2024 3:47 PM EDT Records faxed to [facility]. * Telephone Encounter - Yusef Pandya PA-C - 02/04/2024 2:10 PM EDT Order was already placed Yusef Pandya PA-C * Telephone Encounter - Bernadine Davis - 02/04/2024 2:05 PM EDT Please send records to [facility] joseph * Telephone Encounter - Denita [...] EDT Patient will be going today to [place] for STAT US @ 2:00 pm. Lisa Figueroa documented in this encounterSumma Health Wad[facility]07-31-2024 Telephone encounter Note * Telephone Encounter - Rolanda Arrington - 02/18/2024 1:22 PM EDT [facility] office spoke with Emperatriz. She states she will reach out to patient this afternoon to get scheduled. Rolanda Lawrence [facility]07-31-2024 Telephone encounter Note* Telephone Encounter [...] the pall med RNCC. Denita Rai RN [facility] Work Phone: [phone]) 172-110507-31-2024 Miscellaneous Notes* Telephone Encounter - Denita Rai [...] RNCC. Denita Rai RN documented in this encounterSumma Health Wadsworth - [facility]itt[facility] Center07-29-2024 Telephone encounter Note * Telephone Encounter - Nina Grigsby MD - 02/16/2024 4:59 PM EDT Agree the patient will need to be seen by pulmonary to determine the need and what type of home oxygen is indicated. [facility]07-29-2024 Miscellaneous Notes* Telephone Encounter - [...] PCP. Pt is scheduled for pulm at [facility] but not until the end of February. Encouraged pt to contact PCP for home oxygen, as well as afollow up from recent hospital visit and previous steroid orders by them. Pt verbalized understanding and states that makes jade sense to him anyhow. Please advise if you have other recommendations. Bernadine Rodriguez RN documented in this encounterSumma Health Wadsworth - [facility] Center07-29-2024 Telephone encounter Note * Telephone Encounter - Bernadine Rodriguez RN - 02/16/2024 1:27 PM EDT Pt calls stating he would like home oxygen because his breathing treatments and steroids aren't making much of a difference in his breathing. These were prescribed by his PCP. Pt is scheduled for pulm at [facility] but not until the end of February. Encouraged pt to contact PCP for home oxygen, as well as afollow up from recent hospital visit and previous steroid orders by them. Pt verbalized understanding and states that makes jade sense to him anyhow. Please advise if you have other recommendations. Bernadine Rodriguez RN [facility] Work Phone: [phone] Telephone encounter Note* Telephone Encounter - Enrique Boland - 02/16/2024 1:21 PM EDT Spoke to Pérez, gave him information on Pulmonogist appt in [place]. Transferred to Triage ( out of office) to ask about oxygen. [facility]07-29-2024 Miscellaneous Notes* Telephone Encounter - Enrique Boland - 02/16/2024 1:21 PM EDT Spoke to Pérez, gave him information on Pulmonogist appt in [place]. Transferred to Triage ( out of office) to ask about oxygen. * Telephone Encounter - [place] Kearney - 2024 8:42 AM EDT 3rd attempt to get a hold of patient to give date & time of appointment with [facility] Manager Recovery,however no answer & vm full. [place] Kearney * Telephone Encounter - [place] Kearney - 02/12/2024 2:17 PM EDT Tried calling patient again no answer & vm full. [place] Kearney * Telephone Encounter - [place] Kearney - 02/12/2024 10:29 AM EDT Tried calling patient to give date & time of frog farmer appointment no answer & vm full.Will try back later. [place] Kearney * Telephone Encounter - [place] Kearney - 02/12/2024 10:20 AM EDT Spoke to Ton at [facility] Pulmonology in [place] at [phone] & scheduled the soonest appointment in [facility] on 03/15/2024@[address] Lucas. [place] Kearney * Telephone Encounter - Denita Rai RN - 02/10/2024 1:39 PM EDT Pt would prefer to see [facility] Manager Recovery. Clerical: Please refer. Thanks! Denita Rai RN * Telephone Encounter - Nina Grigsby MD - 02/10/2024 1:38 PM EDT Order signed. Options would be Dr. Wilson at [facility] or Dr. Rene at [facility] Also we can refer him to [facility] pulmonary in [place]. * Telephone Encounter - Denita Rai RN - 02/10/2024 12:55 PM EDT Pt notified and verbalizes understanding. BRM: Pt asks if you will refer him to a frog farmer. Order pended if you approve. Denita Rai [...] recommendations? Denita Rai RN documented in this encounterSumma Health Wadsworth - [facility] Center07-26-2024 Telephone encounter Note * Telephone Encounter - [place] Kearney - 2024 8:42 AM EDT 3rd attempt to get a hold of patient to give date & time of appointment with [facility] Manager Recovery,however no answer & vm full. Florida Kearney [facility]07-25-2024 Telephone encounter Note* Telephone Encounter - [place] Kearney - 02/12/2024 2:17 PM EDT Tried calling patient again no answer & vm full. [place] Kearney [facility]07-25-2024 Telephone encounter Note* Telephone Encounter - [place] Kearney - 02/12/2024 10:29 AM EDT Tried calling patient to give date & time of frog farmer appointment no answer & vm full.Will try back later. [place] Kearney [facility]07-25-2024 Telephone encounter Note* Telephone Encounter - [place] Kearney - 02/12/2024 10:20 AM EDT Spoke to Ton at [facility] Pulmonology in [place] at [phone] & scheduled the soonest appointment in [facility] on 03/15/2024@[address] Lucas. [place] Kearney [facility]07-23-2024 Telephone encounter Note* Telephone Encounter - Denita Rai RN - 02/10/2024 1:39 PM EDT Pt would prefer to see [facility] Manager Recovery. Clerical: Please refer. Thanks! Denita Rai RN [facility]07-23-2024 Telephone encounter Note* Telephone Encounter - Nina Grigsby MD - 02/10/2024 1:38 PM EDT Order signed. Options would be Dr. Wilson at [facility] or Dr. Rene at [facility] Also we can refer him to [facility] pulmonary in [place]. [facility]07-23-2024 Telephone encounter Note* Telephone Encounter - Denita Rai RN - 02/10/2024 12:55 PM EDT Pt notified and verbalizes understanding. BRM: Pt asks if you will refer him to a frog farmer. Order pended if you approve. Denita Rai RN [facility]07-23-2024 Telephone encounter Note* Telephone Encounter - Nina Grigsby MD - 02/10/2024 11:50 AM EDT Agree with plan. Jeannie BRIke [facility]07-23-2024 Telephone encounter Note* Telephone Encounter [...] have any other recommendations? Denita Rai RN [facility]07-22-2024 Telephone encounter Note* Telephone Encounter - Enrique Boland - 02/09/2024 10:42 AM EDT Confirmed referral was received at Vascular. They are currently working on referral and going to call patient. [facility]07-18-2024 Telephone encounter Note* Telephone Encounter - Vanessa Carl - 02/05/2024 1:10 PM EDT Records re-faxed to [facility]. [facility]07-18-2024 Telephone encounter Note* Telephone Encounter - Rolanda Arrington - 02/05/2024 12:51 PM EDT Called [facility] office they have not received this referral and asked us to please refax it tothem. Tomasa: Please refax this referral. Thank You, Rolanda Lawrence [facility]07-17-2024 Telephone encounter Note* Telephone Encounter - Vanessa Carl - 02/04/2024 3:47 PM EDT Records faxed to [facility]. [facility]07-17-2024 Telephone encounter Note* Telephone Encounter - Yusef Pandya PA-C - 02/04/2024 2:10 PM EDT Order was already placed Yusef Pandya PA-C [facility]07-17-2024 Telephone encounter Note* Telephone Encounter - Bernadine Davis - 02/04/2024 2:05 PM EDT Please send records to [facility] please [facility]07-17-2024 Telephone encounter Note* Telephone Encounter - Denita Rai RN - 02/04/2024 1:36 PM EDT Pt notified and agrees to vascular consult. WILIAM/Yusef: Order for consult pended. Clerical: Pt would prefer to see a local physician. Please refer him to Dr Beyer/Dr Sanchez's group. Dx: Left arm swelling. Periodic cyanosis and pain. Denita Rai RN [facility] Work Phone: [phone] Telephone encounter Note* Telephone Encounter - Denita Rai RN - 02/04/2024 9:02 AM EDT Call placed to pt. Message received stating the number has calling restrictions. Unable to leave a message. Denita Rai RN [facility]07-17-2024 Telephone encounter Note* Telephone Encounter - Yusef Pandya PA-C - 02/04/2024 8:10 AM EDT Please inform patient of results. He should likely see vascular due to the periodic cyanosis and pain and swelling to rule out any vascular issues. Yusef Pandya PA-C [facility]07-17-2024 Telephone encounter Note* Telephone Encounter - Denita Rai RN - 02/04/2024 7:59 AM EDT Yusef: US was negative for DVT or superficial thrombus. Report scanned. Denita Rai RN [facility]07-17-2024 Telephone encounter Note* Telephone Encounter - Vanessa Carl - 02/04/2024 7:56 AM EDT Report scanned. [facility]07-16-2024 Telephone encounter Note* Telephone Encounter - Denita Rai RN - 02/03/2024 4:33 PM EDT Tomasa: Please scan results when available. Thanks! Denita Rai RN [facility]07-16-2024 Telephone encounter Note* Telephone Encounter - Lisa Figueroa - 02/03/2024 12:13 PM EDT Patient will be going today to [place] for STAT US @ 2:00 pm. Lisa Figueroa [facility]07-16-2024 History of Present illness Narrative* Yusef Pandya PA-C - 02/03/2024 11:30 AM EDT PATIENT NAME: Cristal Gu DATE: 02/03/2024 PRIMARY CARE PHYSICIAN: Dr. Christina Azul OTHER PHYSICIANS: Dr. Verito Whelan, Dr. Marianne Fields, Dr. Damon Tse ([facility]) Christina Tavarez (Elements copied from [...] (HCC) Peripheral arterial disease (HCC) 2019 R GARDENER stent PAST SURGICAL HISTORY: PAST SURGICAL HISTORY Procedure Laterality Date BACK SURGERY HX 2019 CABG (4) VEIN GRAFTS & ARTERIAL GRAFT(S) 2016 LOWER EXTREMITY FUR NAILER W/WO STENT Right 2019 right common femoral [...] pulse is palpable and strong. PATHOLOGY: 10/21/2022 [id number] NGS analysis KRAS G12C mutation present, 5.2% [...] No hypermetabolic osseous lesions 01/03/2023 Chest CTA ([facility]) Bilateral hilar soft tissue nodules concerning for [...] prior study, as above. 04/12/2022 Bone scan ([facility]) Degenerative findings. No evidence of metastatic [...] uses Percocet as needed. Continue follow-up with [facility] palliative medicine. 7. Abnormal LFTs Labs [...] which included preparing to see the patient, [id number] patient care, completing clinical documentation, performing a medically appropriate examination, counseling and educating the patient/family/caregiver, ordering medications, tests, or p rocedures, independently interpreting results (not separately reported), communicating results to the patient/family/caregiver, and care coordination (not separately reported). documented in this encounterSumma Health Wad[facility]07-16-2024 NoteMarietta [facility]07-09-2024 Telephone encounter Note* Telephone Encounter - Yusef Pandya PA-C - 01/27/2024 4:27 PM EDT Lab orders placed Yusef Pandya PA-C' [facility]07-09-2024 Miscellaneous Notes* Telephone Encounter - Yusef Pandya PA-C - 01/27/2024 4:27 PM EDT Lab orders placed Yusef Pandya PA-C' * Telephone Encounter - Pavithra Jacinto MA - 01/27/2024 11:38 AM EDT Patient has an appt on 02/03/24. Would you like additional labs, if so place orders. Thanks. MICHOACANO Stephens documented in this encounterSumma Health Wadsworth - [facility]07-09-2024 Telephone encounter Note * Telephone Encounter - Pavithra Jacinto MA - 01/27/2024 11:38 AM EDT Patient has an appt on 02/03/24. Would you like additional labs, if so place orders. Thanks. MICHOACANO Stephens [facility]06-25-2024 Telephone encounter Note* Telephone Encounter [...] Tapia RN January 13, 2024 1:19 PM [facility]06-25-2024 Miscellaneous Notes* Telephone Encounter - [...] pain regimen. Hannah SAMANIEGO documented in this encounterSumma Health Wadsworth - [facility]06-25-2024 Telephone encounter Note * Telephone Encounter - Hannah Ortiz - 01/13/2024 12:52 PM EDT Pérez calling regarding the fentanyl patches. He states that he hasn't used them, but states that the other medication is helping with the pain. He has to take the medication before he gets out of beddue to the pain. Patient needs clarification on pain regimen. Hannah SAMANIEGO [facility]06-21-2024 Note* Addendum Note - Estella Fish APRN.CNP - 01/09/2024 2:09 PM EDTAddended by: ESTELLA FISH on: 01/09/2024 02:09 PM Modules accepted: Orders [facility]06-21-2024 Miscellaneous Notes* Addendum Note - [...] Confirmed he would like it sent to [facility] pharmacy. Let him know it [...] Trazodone 50 mg tablets to his [facility] for insomnia. Let him know to [...] Trazodone 50 mg at bedtime. Sent to [facility] in [place] * Telephone Encounter - Bernadine Rodriguez RN - 01/09/2024 10:39 AM EDT Pt calls stating he's been having problems sleeping and would like something for this. States I'vetried it all when asked if he's tried melatonin, tylenol pm, or benadryl. Please advise Bernadine Rodriguez RN documented in this encounterSumma Health W[facility]06-21-2024 Note* Addendum Note - Julieth Tapia RN - 01/09/2024 1:20 PM EDTAddended by: JULIETH TAPIA on: 01/09/2024 01:20 PM Modules accepted: Orders [facility]06-21-2024 Telephone encounter Note* Telephone Encounter [...] Confirmed he would like it sent to [facility] pharmacy. Let him know it [...] Please review and advise. Julieth Tapia RN [facility]06-21-2024 Telephone encounter Note* Telephone Encounter [...] and not have end of dose pain [facility]06-21-2024 Telephone encounter Note* Telephone Encounter [...] Trazodone 50 mg tablets to his [facility] for insomnia. Let him know to [...] Tapia RN January 09, 2024 11:47 AM [facility]06-21-2024 Telephone encounter Note* Telephone Encounter - Estella Fish APRN.RONAL - 01/09/2024 11:27 AM EDT We can try Trazodone 50 mg at bedtime. Sent to [facility] in [place] [facility]06-21-2024 Telephone encounter Note* Telephone Encounter - Bernadine Rodriguez RN - 01/09/2024 10:39 AM EDT Pt calls stating he's been having problems sleeping and would like something for this. States I'vetried it all when asked if he's tried melatonin, tylenol pm, or benadryl. Please advise Bernadine Rodriguez RN T [facility] Work Phone: [phone]) [phone] Telephone encounter Note* Telephone Encounter - Julieth [...] having contact numbers for the office and client consultant. Julieth Tapia RN December 26, 2023 3:06 PM [facility]06-07-2024 Miscellaneous Notes* Telephone Encounter - [...] having contact numbers for the office and client consultant. Julieth Tapia RN December 26, 2023 3:06 PM * Telephone Encounter - Yolande Bishop - 12/26/2023 1:21 PM EDT [facility] is calling today regarding Insurance Authorization for oxycodone. Patient states thepharmacy also told him he needs something else but he could not remember. Patient has been identified by name and birthdate. Requesting response back: N/A, no action needed [phone] (cell) Yolande Bishop December 26, 2023 documented in this encounterSumma Health W[facility]06-07-2024 Miscellaneous Notes* Telephone Encounter - Julieth Tapia RN - 12/26/2023 2:29 PM EDT Prior Authorization Documentation Prior authorization requested for: MEDICATION Oxycodone IR 10 mg tablets Submitted via Cover [employer] [id number] Insurance Company Name: [employer] [facility] Name: [facility] and Authorization approval #: AWAITING DETERMINATION Dates of Approval: from ? to ? Patient Assistance Needed: No Time Spent 10 Julieth Tapia RN December 26, 2023 documented in this encounterSumma Health Wad[facility]06-07-2024 Telephone encounter Note * Telephone Encounter - Julieth Tapia RN - 12/26/2023 2:29 PM EDT Prior Authorization Documentation Prior authorization requested for: MEDICATION Oxycodone IR 10 mg tablets Submitted via Cover [employer] [id number] Insurance Company Name: [employer] [facility] Name: [facility] and Authorization approval #: AWAITING DETERMINATION Dates of Approval: from ? to ? Patient Assistance Needed: No Time Spent 10 Julieth Tapia RN December 26, 2023 [facility]06-07-2024 Telephone encounter Note* Telephone Encounter - Julieth Tapia RN - 12/26/2023 1:49 PM EDT Prior Authorization Documentation Prior authorization requested for: MEDICATION Pregablin 75 mcg capsules Submitted via Cover [employer] [id number] Insurance Company Name: [employer] Pharmacy Name: [facility] and pproved today Your request has been approved Authorization Expiration Date: 12/26/2023- 07/20/2024. Pharmacy updated. Time Spent 10 Julieth Tapia RN December 26, 2023 [facility]06-07-2024 Miscellaneous Notes* Telephone Encounter - Julieth Tapia RN - 12/26/2023 1:49 PM EDT Prior Authorization Documentation Prior authorization requested for: MEDICATION Pregablin 75 mcg capsules Submitted via Cover [employer] [id number] Insurance Company Name: [employer] Pharmacy Name: [facility] and pproved today Your request has been approved Authorization Expiration Date: 12/26/2023- 07/20/2024. Pharmacy updated. Time Spent 10 Julieth Tapia RN December 26, 2023 documented in this encounterSumma Health [facility]06-07-2024 Telephone encounter Note * Telephone Encounter - Yolande Bishop - 12/26/2023 1:21 PM EDT Cristal Gu is calling today regarding Insurance Authorization for oxycodone. Patient states thepharmacy also told him he needs something else but he could not remember. Patient has been identified by name and birthdate. Requesting response back: N/A, no action needed [phone] (cell) Yolande Bishop December 26, 2023 [facility]06-07-2024 Telephone encounter Note* Telephone Encounter [...] and Oxy were sent to [facility]. Nurse encouraged patient to call with any questions/concerns/symptom related issues. Patient confirmed having contact numbers for the office and client consultant. [facility]06-07-2024 Miscellaneous Notes* Telephone Encounter - [...] and Oxy were sent to his [facility]. Nurse encouraged patient to call with any questions/concerns/symptom related issues. Patient confirmed having contact numbers for the office and client consultant. * Addendum Note - Estella Fish APRN.CNP [...] AM EDT Care Coordination Triage Note [facility] Situation: Received page that patient called [...] 26, 2023 8:19 AM documented in this encounterSumma Health [facility]06-07-2024 Note* Addendum Note - Estella Fish APRN.CNP - 12/26/2023 12:23 PM EDTAddended by: ESTELLA FISH on: 12/26/2023 12:23 PM Modules accepted: Orders [facility]06-07-2024 Telephone encounter Note* Telephone Encounter [...] every 4 hours - Agree with Dex [facility]06-07-2024 Telephone encounter Note* Telephone Encounter - Denita Rai RN - 12/26/2023 11:00 AM EDT Pt notified, verbalizes understanding, and states that he has plenty of dex at home. Denita Rai RN [facility] Work Phone: [phone] Telephone encounter Note* Telephone Encounter - Denita Rai RN - 12/26/2023 10:59 AM EDT Images from the original note were not included. Hector Limon MD You5 minutes ago (10:53 AM) Yes seemed to work before. Thank.s [facility]06-07-2024 Telephone encounter Note* Telephone Encounter - Denita Rai RN - 12/26/2023 10:46 AM EDT Pt was originally on Dexamethasone 4 mg BID. Is this the dose you'd like him resume? Denita Rai RN [facility]06-07-2024 Telephone encounter Note* Telephone Encounter - Denita Rai RN - 12/26/2023 10:46 AM EDT Images from the original note were not included. Hector Limon MD You; [facility] Rad Nurse Pool4 minutes ago (10:41 AM) Consider reinitiating steroids. Radiation may have ongoing improvement with time. 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 [facility]06-07-2024 Telephone encounter Note* Telephone Encounter - Denita Rai RN - 12/26/2023 8:50 AM EDT JEROME: Please see Julieth's message below. Thank you! Denita Rai RN [facility]06-07-2024 Telephone encounter Note* Telephone Encounter - uJlieth Tapia RN - 12/26/2023 8:19 AM EDT Care Coordination Triage Note [facility] Situation: Received page that patient called [...] Tapia RN December 26, 2023 8:19 AM [facility]06-05-2024 Telephone encounter Note* Telephone Encounter - Denita Rai RN - 12/24/2023 2:03 PM EDT Pt notified of script. Denita Rai RN [facility] Work Phone: [phone] Miscellaneous Notes* Telephone Encounter - Denita Rai [...] advise. Denita Rai RN documented in this encounterSumma Health [facility]06-05-2024 Telephone encounter Note * Telephone Encounter - Denita Rai RN - 12/24/2023 11:34 AM EDT Patient phones requesting refills as follows: Requested Prescriptions Pending Prescriptions Disp Refills levothyroxine (SYNTHROID) 75 mcg tablet 30 tablet 1 Sig: Take 1 tablet by mouth once daily. Please review and advise. Denita Rai RN [facility]06-05-2024 History of Present illness Narrative* Hector Limon MD - 12/24/2023 12:00 AM EDT [facility] Radiation Oncology Department RADIATION ONCOLOGY - COMPLETION NOTE PATIENT: CRISTAL GUDOB: 1955 DATES OF TREATMENT: 12/10/2023 to 12/24/2023 DIAGNOSIS: Lung cancer, left upper lobe, pleomorphic carcinoma, stage IIb [id number], stage IIB AJCC 8th edition (chest wall invasion), PD-L1 95%, KRAS G12C mutation present AREA TREATED: Right Oropharynx Mason DELIVERED DOSE: Area: Right Oropharynx with daily [...] , , , . documented in this encounterSumma Health [facility]06-[facility]-2024 [facility]-2024 NoteM[facility]06-03-2024 History of Present illness Narrative* Nina Grigsby MD - 12/22/2023 10:26 PM EDT PATIENT NAME: Cristal Gu DATE: 12/23/2023 PRIMARY CARE PHYSICIAN: Dr. Christina Azlu OTHER PHYSICIANS: Dr. Verito Whelan, Dr. Marianne Fields, Dr. Damon Tse ([facility]) Christina Tavarez Portions of this [...] (HCC) Peripheral arterial disease (HCC) 2019 R GARDENER stent PAST SURGICAL HISTORY: PAST SURGICAL HISTORY Procedure Laterality Date BACK SURGERY HX 2019 CABG (4) VEIN GRAFTS & ARTERIAL GRAFT(S) 2016 LOWER EXTREMITY FUR NAILER W/WO STENT Right 2019 right common femoral [...] involving face and upper back. PATHOLOGY: 10/21/2022 [id number] NGS analysis KRAS G12C mutation present, 5.2% [...] No hypermetabolic osseous lesions 01/03/2023 Chest CTA ([facility]) Bilateral hilar soft tissue nodules concerning for [...] prior study, as above. 04/12/2022 Bone scan ([facility]) Degenerative findings. No evidence of metastatic [...] underwent a repeat chest CT 10/21/2023 w [facility] revealed slight growth of several pulm [...] tonsil. The patient was initially seen by [facility] on 07/26/2021, and clinical evaluation was most consistent with inflammatory/post-infectious findings. The patient was advised to stop chewing tobacco and continue close observation. Follow-up PET 05/12/2023 revealed significant increased size and metabolism of the right tonsillar mass. The patient was reevaluated by [facility] May 2023 and it was [...] 2015. Status post CABG x 4 in [place] 2015. Currently stable. Continue management per PCP/cardiology. [...] uses Percocet as needed. Continue follow-up with [facility] palliative medicine. 7. Abnormal LFTs Labs [...] accordingly. 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 Hector Limon MD documented in this encounterSumma Health W[facility]05-29-2024 Telephone encounter Note * Telephone [...] Tapia RN December 17, 2023 9:03 AM [facility]05-29-2024 Miscellaneous Notes* Telephone Encounter - [...] advise. Rosibel Wheeler RN documented in this encounterSumma Health W[facility]05-28-2024 Telephone encounter Note * Telephone [...] pain returns. Please advise. 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 Continue follow-up with palliative for pain control. Will lower his Decadron from 4 mg twice daily to a dose of 4 mg daily. Hector Limon MD documented in this encounterSumma Health W[facility]05-22-2024 NoteMari[facility]05-22-2024 History of Present illness Narrative* Hector Limon [...] prescribed. Hector Limon MD documented in this encounterSumma Health Wad[facility] - [facility]05-20-2024 NoteHNO ID: [id number] Author: Hector LIMON MD Service: ? Author Type: Physician Type: Progress Notes Filed: 12/08/2023 10:05 Note Text: [facility]05-20-2024 History of Present illness Narrative* Hector Limon MD - 12/08/2023 10:04 AM EDT sim documented in this encounterSumma Health W[facility]05-15-2024 Telephone encounter Note * Telephone [...] Dr. Limon. Patient states last dose of [id number] 2 tabs was at 0900. SIM was [...] him he needs to contact Christina with [facility] if his pain medication is not effective. He said when he's at home resting his pain is controlled with what is prescribed. He said he is aware to call Christina if needed for medication adjustment and has her phone number. He is scheduled to start radiation therapy 12/10/23. Thanks Rosibel Wheeler RN [facility]05-15-2024 Miscellaneous Notes* Telephone Encounter - [...] Dr. Limon. Patient states last dose of [id number] 2 tabs was at 0900. SIM was [...] him he needs to contact Christina with [facility] if his pain medication is not effective. He said when he's at home resting his pain is controlled with what is prescribed. He said he is aware to call Christina if needed for medication adjustment and has her phone number. He is scheduled to start radiation therapy 12/10/23. Thanks Rosibel Wheeler RN documented in this encounterSumma Health [facility]05-15-2024 History of Present illness Narrative* Hector Limon MD - 12/03/2023 12:00 AM EDT CRISTAL GU [id number] 12/03/2023 [facility] Radiation Oncology Department SIMULATION NOTE DATE OF SIMULATION: 12/03/2023 THERAPIST: Sapna Severino MACHINE: [employer] DIAGNOSIS: Malignant neoplasm of upper lobe, left [...] / CDT 42:54 PM documented in this encounterSumma Health Wad[facility] - [facility]05-15-2024 History of Present illness Narrative* Hector Limon MD - 12/03/2023 12:00 AM EDT CRISTAL GU [id number] 12/03/2023 [facility] Department of Radiation Oncology Treatment Planning [...] Limon M.D. 2:46 PM documented in this encounterSumma Health W[facility] - [facility]05-15-2024 NoteM[facility]05-15-2024 NoteM[facility]05-14-2024 NoteM[facility]05-14-2024 History of Present illness Narrative* Hector Limon MD - 12/02/2023 11:14 AM EDT Radiation Oncology - Follow Up Note PATIENT NAME: Cristal Gu PATIENT DIAGNOSIS: Lung cancer, left upper lobe, pleomorphic carcinoma, stage IIb [id number], stage IIB AJCC 8th edition (chest wall [...] left upper lobe, pleomorphic carcinoma, stage IIb [id number], stage IIB AJCC 8th edition (chest wall [...] by: Hector Limon MD cc: Christina Azul [address] [place] [address] documented in this encounterSumma Health Wad[facility] - [facility]05-13-2024 NoteMari[facility]05-13-2024 History of Present illness Narrative* Nina Grigsby MD - 12/01/2023 9:00 PM EDT PATIENT NAME: Cristal Gu DATE: 12/02/2023 PRIMARY CARE PHYSICIAN: Dr. Christina Azul OTHER PHYSICIANS: Dr. Verito Whelan, Dr. Marianne Fields, Dr. Damon Tse ([facility]) Christina Tavarez Portions of this [...] (HCC) Peripheral arterial disease (HCC) 2019 R GARDENER stent PAST SURGICAL HISTORY: PAST SURGICAL HISTORY Procedure Laterality Date BACK SURGERY HX 2019 CABG (4) VEIN GRAFTS & ARTERIAL GRAFT(S) 2016 LOWER EXTREMITY FUR NAILER W/WO STENT Right 2019 right common femoral [...] involving face and upper back. PATHOLOGY: 10/21/2022 [id number] NGS analysis KRAS G12C mutation present, 5.2% [...] No hypermetabolic osseous lesions 01/03/2023 Chest CTA ([facility]) Bilateral hilar soft tissue nodules concerning for [...] prior study, as above. 04/12/2022 Bone scan ([facility]) Degenerative findings. No evidence of metastatic [...] +/- immunotherapy. He will also follow-up with [facility] palliative medicine to discuss more aggressive pain medications. 2. Carcinoma of the right tonsil Baseline PET and CT neck revealed suspicious abnormalities in the right tonsil. The patient was initially seen by [facility] on 07/26/2021, and clinical evaluation was most consistent with inflammatory/post-infectious findings. The patient was advised to stop chewing tobacco and continue close observation. Follow-up PET 05/12/2023 revealed significant increased size and metabolism of the right tonsillar mass. The patient was reevaluated by [facility] May 2023 and it was [...] uses Percocet as needed. Continue follow-up with [facility] palliative medicine. 7. Abnormal LFTs Labs [...] accordingly. Nina Grigsby MD documented in this encounterSumma Health Wadsworth - [facility]05-07-2024 NoteMari[facility]05-07-2024 History of Present illness Narrative* Deborah Warner RN - 11/25/2023 11:05 AM EDT Pt here for PET scan. States has not been eating or drinking much doesn't have an appetite and feels weak. Denies N/V/D. Dr. Grigsby aware and Whitney Rai RNCC updated. New orders for 1 L NS over 1 hr. Pt states understanding with POC. Deborah Warner RN documented in this encounterSumma Health Wad[facility]05-07-2024 History of Present illness Narrative* Olga Lidia Rosas RN - 11/25/2023 11:00 AM EDTSummary: IRB [id number] Informed Consent CASE [id number] (IRB [id number]): Tissue [...] RN Clinical Research Nurse documented in this encounterSumma Health Wadsworth - [facility]05-07-2024 [facility]05-07-2024 History of Present illness Narrative* Deborah [...] 1058 PATIENT DISCHARGED TO: Ambulatory patient, left [place] department area. A Diagnostic radioactive procedure has taken place, with no further precautions necessary other than routine body substance precautions. More information regarding radiation safety can be found usingthis link: [email or web address] SIGNATURE: RT Charis(R) PATIENT NAME: Cristal Gu DATE: November 25, 2023 TIME: 11:04 AM PAGER/CONTACT #: documented in this encounterSumma Health W[facility] - [facility]05-07-2024 NoteM[facility]05-07-2024 NoteM[facility]05-06-2024 Telephone encounter Note* Telephone Encounter - Hannah Oglesby RN - 11/24/2023 9:47 AM EDT Please sign pended labs if agreeable-will draw with PET tomorrow. F/U with you 12/01 Thank You! Hannah Oglesby RN [facility]05-06-2024 Miscellaneous Notes* Telephone Encounter - Hannah Oglesby RN - 11/24/2023 9:47 AM EDT Please sign pended labs if agreeable-will draw with PET tomorrow. F/U with you 12/01 Thank You! Hannah Oglesby RN documented in this encounterSumma Health Wad[facility] - [facility]05-03-2024 Instructions* Patient Instructions* Estella Fish APRN.CNP - 11/21/2023 10:25 AM EDT Estella Fish CNP Department of Palliative and Supportive Care Palliative Care - Specialty services in symptom management and support For questions or prescription refills, call: [phone] Friday - Friday 9AM-5PM LASHAY Evans, RN - Federal Appellate Law Clerk Please call 3-5 days in advance for medication refills Evenings, Weekends, Holidays: [phone] (ask for palliative medicine on-call provider) For appointments, cancellations or reschedule, call: [phone] documented in this encounterSumma Health Wad[facility] - [facility]05-03-2024 History of Present illness Narrative* [...] a day, still 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 He has [...] helpful for pain and anxiety. Modified ESAS ([place] Symptom Assessment Scale) Information Provided By: Patient [...] ear normal. Nose: Nose normal. Mouth/Throat: Lips: [place]. Mouth: Mucous membranes are moist. No oral [...] suspiciousactivity was identified. 11/21/2023 by Estella Fish, RADIO INSTALLER, DRAWING IN MACHINE TENDER HELPER.ACCESS LEAD Urine Screen Lab Results Component Value Date UAMPH Negative 09/26/2021 UBARB2 Negative 09/26/2021 UBENZ Negative 09/26/2021 UCOC2 Negative 09/26/2021 UOPI Negative 09/26/2021 UOXYC Negative 09/26/2021 UPCP Negative 09/26/2021 UTHC Negative 09/26/2021 UETOH <11 09/26/2021 Assessment & Plan (Z51.5) Palliative care by specialist (primary encounter diagnosis) - Reviewed philosophy of palliative medicine - Discussed services offered by [facility] - Provided support -Discussed services offered by palliative medicine and how to contact us (J79.40) Primary malignant neoplasm of left lung metastatic [...] 6-8 Weeks in person Estella Fish NP, DRAWING IN MACHINE TENDER HELPER.ACCESS LEAD November 21, 2023 9:44 AM This note may have been partially generated using the [employer] voice recognition system. While every effort was made to correct voice recognition errors, kindly be aware that some errors may occasionally occur. documented in this encounterSumma Health [facility]05-03-2024 NoteMarietta [facility]04-23-2024 Telephone encounter Note* Telephone Encounter - Denita [...] MONA Muhammad, for scheduling. Denita Rai RN [facility] Work Phone: 1(926) 835-677804-23-2024 Miscellaneous Notes* Telephone Encounter - Denita Rai [...] scheduling. Denita Rai RN documented in this encounterSumma Health Wad[facility]04-17-2024 Miscellaneous Notes* Telephone Encounter - [...] message. Denita Rai RN documented in this encounterSumma Health Wad[facility] - [facility]04-16-2024 Miscellaneous Notes* Telephone Encounter - Maricruz [...] kidney function are stable. documented in this encounterSumma Health Wad[facility] - [facility]04-16-2024 NoteMarietta [facility]04-16-2024 History of Present illness Narrative* Katherine Dominique, [...] diet such as recommendations from [employer] [place] [employer] focusing on lean proteins, whole grains, [...] learning: None Educational materials provided: [employer] [place] [employer], Heart Healthy Plate Anthropometrics: Height: Last [...] Dosing Weight: 56.3 kg Estimated kilocalorie needs: 3998-8444 kilocalories determined by 30-35 kcal/kg Estimated protein needs: 56-84 grams determined by 1.0-1.5 g/kg Dosing weight Estimated fluid needs: ~6201-2020 milliliters based on 1 mL per kcal [...] Murphy MS, RDN, LD documented in this encounterSumma Health [facility]04-15-2024 NoteM[facility]04-15-2024 History of Present illness Narrative* Nina Grigsby MD - 11/03/2023 8:46 PM EDT PATIENT NAME: Cristal Gu DATE: 11/04/2023 PRIMARY CARE PHYSICIAN: Dr. Christina Azul OTHER PHYSICIANS: Dr. Verito Whelan, Dr. Marianne Fields, Dr. Damon Tse ([facility]) Christina Tavarez Portions of this [...] (HCC) Peripheral arterial disease (HCC) 2019 R GARDENER stent PAST SURGICAL HISTORY: PAST SURGICAL HISTORY Procedure Laterality Date BACK SURGERY HX 2019 CABG (4) VEIN GRAFTS & ARTERIAL GRAFT(S) 2016 LOWER EXTREMITY FUR NAILER W/WO STENT Right 2019 right common femoral [...] involving face and upper back. PATHOLOGY: 10/21/2022 [id number] NGS analysis KRAS G12C mutation present, 5.2% [...] No hypermetabolic osseous lesions 01/03/2023 Chest CTA ([facility]) Bilateral hilar soft tissue nodules concerning for [...] prior study, as above. 04/12/2022 Bone scan ([facility]) Degenerative findings. No evidence of metastatic [...] tonsillar mass. The patient was reevaluated by [facility] May 2023 and it was [...] 2015. Status post CABG x 4 in [place] 2015. Currently stable. Continue management per PCP/cardiology. [...] uses Percocet as needed. Continue follow-up with [facility] palliative medicine. 7. Abnormal LFTs Labs [...] accordingly. Nina Grigsby MD documented in this encounterSumma Health Wad[facility]04-02-2024 History of Present illness Narrative* Hannah [...] PATIENT PRESENTS WITH AN IMPLANTABLE OR ATTACHED METAL MIXER: No RADIOLOGY DEPARTMENT: CT; Exam(s) Completed: Chest PERIPHERAL IV DATA: Site assessment: Clean,Dry and Intact, Site disposition Discontinued 22g right ac SIGNED BY: RT Tavo(R) October 21, 2023 11:24 AM documented in this encounterSumma Health Wad[facility]04-02-2024 NoteM[facility]04-02-2024 NoteM[facility]04-02-2024 Miscellaneous Notes * Telephone Encounter - Estella [...] have left at home documented in this encounterSumma Health Wad[facility]04-01-2024 NoteM[facility]04-01-2024 History of Present illness Narrative* Nina Grigsby MD - 10/20/2023 5:22 AM EDT PATIENT NAME: Cristal Gu DATE: 10/20/2023 PRIMARY CARE PHYSICIAN: Dr. Christina Azul OTHER PHYSICIANS: Dr. Verito Whelan, Dr. Marianne Fields, Dr. Damon Tse ([facility]) Dr. Limon, Christina Fish Portions [...] (HCC) Peripheral arterial disease (HCC) 2019 R GARDENER stent PAST SURGICAL HISTORY: PAST SURGICAL HISTORY Procedure Laterality Date BACK SURGERY HX 2019 CABG (4) VEIN GRAFTS & ARTERIAL GRAFT(S) 2016 LOWER EXTREMITY FUR NAILER W/WO STENT Right 2019 right common femoral [...] involving face and upper back. PATHOLOGY: 10/21/2022 [id number] NGS analysis KRAS G12C mutation present, 5.2% [...] No hypermetabolic osseous lesions 01/03/2023 Chest CTA ([facility]) Bilateral hilar soft tissue nodules concerning for [...] prior study, as above. 04/12/2022 Bone scan ([facility]) Degenerative findings. No evidence of metastatic [...] tonsil. The patient was initially seen by [facility] on 07/26/2021, and clinical evaluation was most consistent with inflammatory/post-infectious findings. The patient was advised to stop chewing tobacco and continue close observation. Follow-up PET 05/12/2023 revealed significant increased size and metabolism of the right tonsillar mass. The patient was reevaluated by [facility] May 2023 and it was [...] uses Percocet as needed. Continue follow-up with [facility] palliative [facility]. 7. Abnormal LFTs Labs [...] accordingly. Nina Grigsby MD documented in this encounterSumma Health Wad[facility]03-04-2024 NoteM[facility]03-04-2024 History of Present illness Narrative* Dominique Murphy RD - 09/22/2023 10:07 AM EST Oncology Nutrition Therapy Reassessment Patient left after office visit with physician and did not stay for scheduled dietitian appointment. Signed by: Dominique Murphy MS, RDN, LD documented in this encounterSumma Health Wadsworth [facility]03-04-2024 NoteMari[facility]03-04-2024 History of Present illness Narrative* Nina Grigsby MD - 09/22/2023 5:35 AM EST PATIENT NAME: Cristal Gu DATE: 09/22/2023 PRIMARY CARE PHYSICIAN: Dr. Christina Azul OTHER PHYSICIANS: Dr. Verito Whelan, Dr. Marianne Fields, Dr. Damon Tse ([facility]) Christina Tavarez Portions of this [...] (HCC) Peripheral arterial disease (HCC) 2019 R GARDENER stent PAST SURGICAL HISTORY: PAST SURGICAL HISTORY Procedure Laterality Date BACK SURGERY HX 2019 CABG (4) VEIN GRAFTS & ARTERIAL GRAFT(S) 2016 LOWER EXTREMITY FUR NAILER W/WO STENT Right 2019 right common femoral [...] involving face and upper back. PATHOLOGY: 10/21/2022 [id number] NGS analysis KRAS G12C mutation present, 5.2% [...] No hypermetabolic osseous lesions 01/03/2023 Chest CTA ([facility]) Bilateral hilar soft tissue nodules concerning for [...] prior study, as above. 04/12/2022 Bone scan ([facility]) Degenerative findings. No evidence of metastatic [...] tonsil. The patient was initially seen by [facility] on 07/26/2021, and clinical evaluation was most consistent with inflammatory/post-infectious findings. The patient was advised to stop chewing tobacco and continue close observation. Follow-up PET 05/12/2023 revealed significant increased size and metabolism of the right tonsillar mass. The patient was reevaluated by [facility] May 2023 and it was [...] uses Percocet as needed. Continue follow-up with [facility] palliative medicine. 7. Abnormal LFTs Labs [...] wellbeing. Nina Grigsby MD documented in this encounterSumma Health Wadsworth [facility]02-26-2024 History of Present illness Narrative* Denita [...] PATIENT PRESENTS WITH AN IMPLANTABLE OR ATTACHED METAL MIXER: No CREATININE: Creatinine Date Value Ref Range [...] 1246 PATIENT DISCHARGED TO: Ambulatory patient, left [place] department area. A Diagnostic radioactive procedure has taken place, with no further precautions necessary other than routine body substance precautions. More information regarding radiation safety can be found usingthis link: [email or web address]%20Nuclear%20Medicine%[email or web address] SIGNATURE: RT Charis(Marcella) PATIENT NAME: Cristal Gu DATE: September 15, 2023 TIME: 12:59 PM PAGER/CONTACT #: documented in this encounterSumma Health Wadsworth [facility]02-26-2024 NoteM[facility]02-07-2024 Miscellaneous Notes* Telephone Encounter - Patricia Miller [...] a new prescription be sent to [facility] in [place]. WILIAM/Patricia: script pended. Denita Rai RN * [...] TFTs on return visit. documented in this encounterSumma Health Wadsworth - [facility]02-05-2024 NoteM[facility]02-05-2024 History of Present illness Narrative* Nina Grigsby MD - 08/25/2023 6:17 AM EST PATIENT NAME: Cristal Gu DATE: 08/25/2023 PRIMARY CARE PHYSICIAN: Dr. Christina Azul OTHER PHYSICIANS: Dr. Verito Whelan, Dr. Marianne Fields, Dr. Damon Paynes ([facility]) Dr. 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 With recent antibiotics his skin lesions [...] (HCC) Peripheral arterial disease (HCC) 2019 R GARDENER stent PAST SURGICAL HISTORY: PAST SURGICAL HISTORY Procedure Laterality Date BACK SURGERY HX 2019 CABG (4) VEIN GRAFTS & ARTERIAL GRAFT(S) 2016 LOWER EXTREMITY FUR NAILER W/WO STENT Right 2019 right common femoral [...] involving face and upper back. PATHOLOGY: 10/21/2022 [id number] NGS analysis KRAS G12C mutation present, 5.2% [...] No hypermetabolic osseous lesions 01/03/2023 Chest CTA ([facility]) Bilateral hilar soft tissue nodules concerning for [...] prior study, as above. 04/12/2022 Bone scan ([facility]) Degenerative findings. No evidence of metastatic [...] tonsil. The patient was initially seen by [facility] on 07/26/2021, and clinical evaluation [...] accordingly. Nina Grigsby MD documented in this encounterSumma Health Wadsworth [facility]01-26-2024 NoteM[facility]01-19-2024 NoteHNO ID: [id number] Author: ESTELLA FISH APRN.ACCESS LEAD Service: ? Author Type: Nurse Practitioner Type: Progress Notes Filed: 08/08/2023 13:54 Note Text: No showMarietta Osteopathic Clinic01-08-2024 NoteM[facility] 06-30-2023 NoteM[facility]12-11-2023 History of Present illness Narrative* Nina Grigsby MD - 06/30/2023 7:59 AM EST PATIENT NAME: Cristal Gu DATE: 06/30/2023 PRIMARY CARE PHYSICIAN: Dr. Christina Azul OTHER PHYSICIANS: Dr. Verito Whelan, Dr. Marianne Fields, Dr. Damon Paynes ([facility]) Dr. Limon Portions of this encounter note have been copied from the note from 06/02/2023 and has been updatedwhere appropriate, and reflect my current medical decision making from today. CC: This is a 68 year old male with metastatic lung cancer, seen for scheduled follow-up and continued treatment. INTERIM HISTORY: Since the patient's last visit here he was reevaluated by [facility] on 05/27/2023. Itwas felt the [...] no significant medical changes. He remains in [facility] for his metastatic lung cancer, and is tolerating the medication well. Since starting [facility] his left chest wallpain has resolved and [...] (HCC) Peripheral arterial disease (HCC) 2019 R GARDENER stent PAST SURGICAL HISTORY: PAST SURGICAL HISTORY Procedure Laterality Date BACK SURGERY HX 2019 CABG (4) VEIN GRAFTS & ARTERIAL GRAFT(S) 2016 LOWER EXTREMITY FUR NAILER W/WO STENT Right 2019 right common femoral [...] involving face and upper back. PATHOLOGY: 10/21/2022 [id number] NGS analysis KRAS G12C mutation present, 5.2% [...] No hypermetabolic osseous lesions 01/03/2023 Chest CTA ([facility]) Bilateral hilar soft tissue nodules concerning for [...] prior study, as above. 04/12/2022 Bone scan ([facility]) Degenerative findings. No evidence of metastatic [...] accordingly. Nina Grigsby MD documented in this encounterSumma Health Wad[facility]12-11-2023 NoteMari[facility]12-05-2023 NoteM[facility]12-04-2023 NoteM[facility]11-24-2023 Instructions* Patient Instructions* Estella Fish APRN.CNP - 06/13/2023 9:54 AM EST Estella Fish CNP Department of Palliative and Supportive Care Palliative Care - Specialty services in symptom management and support For questions or prescription refills, call: [phone] Friday - Friday 9AM-5PM LASHAY Evans, RN - Federal Appellate Law Clerk Please call 3-5 days in advance for medication refills Evenings, Weekends, Holidays: [phone] (ask for palliative medicine on-call provider) For appointments, cancellations or reschedule, call: [phone] documented in this encounterSumma Health Wadsworth - [facility]11-24-2023 History of Present illness Narrative* [...] has improved anxiety and sleep. Modified ESAS ([place] Symptom Assessment Scale) Information Provided By: Patient [...] Nose: Nose normal. No rhinorrhea. Mouth/Throat: Lips: [place]. Mouth: Mucous membranes are moist. No oral [...] suspiciousactivity was identified. 06/13/2023 by Estella Fish, RADIO INSTALLER, DRAWING IN MACHINE TENDER HELPER.ACCESS LEAD Assessment & Plan (Z51.5) Palliative care by specialist (primary encounter diagnosis) - Reviewed philosophy of palliative medicine - Discussed services offered by [facility] - Provided support -Discussed services offered by palliative medicine and how to contact us (Z96.92) Primary malignant neoplasm of left lung metastatic [...] 6-8 Weeks in person Estella Fish NP, DRAWING IN MACHINE TENDER HELPER.ACCESS LEAD June 13, 2023 7:43 AM I spent a total of 35 minutes on the date of the service which included preparing to see the patient, [id number] patient care, completing clinical documentation, obtaining and/or reviewing separately obtained history, performing a medically appropriate examination, counseling and educating the pat ient/family/caregiver, ordering medications, tests, or procedures, communicating with other HCPs (not separately reported), and independently interpreting results (not separately reported). This note may have been partially generated using the [employer] voice recognition system. While every effort was made to correct voice recognition errors, kindly be aware that some errors may occasionally occur. documented in this encounterSumma Health Wadsworth [facility]11-24-2023 NoteM[facility]11-21-2023 History of Present illness Narrative* Hector Limon MD - 06/10/2023 12:00 AM EST CRISTAL GU [id number] 06/10/2023 [facility] Radiation Oncology Department SIMULATION NOTE DATE OF SIMULATION: 06/10/2023 THERAPIST: Sapna Severino MACHINE: [employer] DIAGNOSIS: C10 Malignant neoplasm of oropharynx AREA: [...] / CDT 2:50 PM documented in this encounterSumma Health Wadsworth - [facility] Center11-21-2023 History of Present illness Narrative* Hector Limon MD - 06/10/2023 12:00 AM EST CRISTAL GU [id number] 06/10/2023 [facility] Department of Radiation Oncology Treatment Planning [...] Limon M.D. 1:41 AM documented in this encounterSumma Health Wadsworth - [facility]itt[facility] Center11-21-2023 NoteM[facility]11-21-2023 NoteM[facility]11-14-2023 Miscellaneous Notes * Telephone Encounter - Chet-Pavithra Acuna MA - 06/03/2023 3:39 PM EST Opened for refill, refills not needed at this time. Pavithra Jacinto MA documented in this encounterSumma Health Wadsworth - [facility]11-13-2023 NoteM[facility]11-13-2023 History of Present illness Narrative* Patricia Miller APRN.ACCESS LEAD - 06/02/2023 2:53 PM EST PATIENT NAME: [...] (HCC) Peripheral arterial disease (HCC) 2019 R GARDENER stent PAST SURGICAL HISTORY: PAST SURGICAL HISTORY Procedure Laterality Date BACK SURGERY HX 2019 CABG (4) VEIN GRAFTS & ARTERIAL GRAFT(S) 2016 LOWER EXTREMITY FUR NAILER W/WO STENT Right 2019 right common femoral [...] involving face and upper back. PATHOLOGY: 10/21/2022 [id number] NGS analysis KRAS G12C mutation present, 5.2% [...] No hypermetabolic osseous lesions 01/03/2023 Chest CTA ([facility]) Bilateral hilar soft tissue nodules concerning for [...] prior study, as above. 04/12/2022 Bone scan ([facility]) Degenerative findings. No evidence of metastatic [...] neck CT. [facility], and clinical evaluation most consistent with inflammatory/post-infectious findings. No suspicion for malignancy. The patient apparently chewed tobacco, and was advised to discontinue. Follow-up PET scan 05/12/2023 revealed significant increased size and metabolism of the right tonsillar mass. We will refer to [facility] for evaluation, most likely to [...] which included preparing to see the patient, [id number] patient care, completing clinical documentation, obtaining and/or reviewing separately obtained history, performing a medically appropriate examination, counseling and educating the pat ient/family/caregiver, ordering medications, tests, or procedures, independently interpreting results (not separately reported), and communicating results to the patient/family/caregiver. documented in this encounterSumma Health Wadsworth - [facility]11-10-2023 NoteM[facility]11-10-2023 History of Present illness Narrative* Hector Limon MD - 05/30/2023 11:16 AM EST Radiation Oncology - Follow Up Note PATIENT NAME: Cristal Gu PATIENT DIAGNOSIS: Lung cancer, left upper lobe, pleomorphic carcinoma, stage IIb [id number], stage IIB AJCC 8th edition (chest wall [...] left upper lobe, pleomorphic carcinoma, stage IIb [id number], stage IIB AJCC 8th edition (chest wall [...] cc: Christina Azul [address] [place] [address] documented in this encounterSumma Health Wadsworth - [facility]11-07-2023 NoteMari[facility]11-07-2023 History of Present illness Narrative* Damon sTe MD - 05/27/2023 1:41 PM EST Head and Neck Surgery Follow-up Note Patient: Critsal Gu Age: [age] year old Provider: Damon [...] ACTIVE PROBLEM LIST Coronary Artery Disease Involving [place] Coronary Artery of [place] Heart Without Angina Pectoris Centrilobular Emphysema (Hcc) [...] of SERVICE: 1:41 PM documented in this encounterSumma Health Wadsworth - [facility]itt[facility] Center11-07-2023 Nurse Note* Radha Hunter CT - 05/27/2023 1:31 PM EST Tobacco Use: 2 packs/day, for 50 years. Types: Cigarettes Was smoking cessation packet given? Patient Declined Was a referral initiated?Patient declined. documented in this encounterSumma Health Wadsworth - [facility]itt[facility] Center10-31-2023 Miscellaneous Notes* Telephone Encounter - Denita Rai RN - 05/20/2023 1:49 PM EDT Patient started/will start taking Sotorasib on 05/14/23. Denita Rai RN documented in this encounterSumma Health Wadsworth - [facility] Center10-31-2023 Miscellaneous Notes* Telephone Encounter - [...] comply. Denita Rai RN documented in this encounterSumma Health Wadsworth - [facility]itt[facility] Center10-31-2023 History of Present illness Narrative* [...] needed. Denita Rai RN documented in this encounterSumma Health Wadsworth - [facility]itt[facility] Center10-31-2023 NoteMarietta [facility]10-30-2023 Miscellaneous Notes* Telephone Encounter - Denita Rai RN - 05/19/2023 9:40 AM EDT Pt notified of script. Denita Rai RN * Telephone Encounter - Patricia Miller APRN.ACCESS LEAD - 05/19/2023 9:19 AM EDT The following approved medication requests have been transmitted electronically. Requested Prescriptions Signed Prescriptions Disp Refills amoxicillin-clavulanate potassium (AUGMENTIN) 875-125 mg per tablet 14 tablet 0 Sig: Take 1 tablet by mouth two times a day for 7 days. Authorizing Provider: PATRICIA MILLER APRN.ACCESS LEAD * Telephone Encounter - Denita Rai RN [...] then? Denita Rai RN documented in this encounterSumma Health Wadsworth - [facility]itt[facility] Center10-27-2023 Instructions* Patient Instructions* Estella Fish APRN.RONAL - 05/16/2023 9:13 AM EDT Estella Fish CNP Department of Palliative and Supportive Care Palliative Care - Specialty services in symptom management and support For questions or prescription refills, call: [phone] Friday - Friday 9AM-5PM LASHAY Evans, RN - Federal Appellate Law Clerk Please call 3-5 days in advance for medication refills Evenings, Weekends, Holidays: [phone] (ask for palliative medicine on-call provider) For appointments, cancellations or reschedule, call: [phone] documented in this encounterSumma Health Wadsworth - [facility]10-27-2023 NoteM[facility]10-27-2023 History of Present illness Narrative* Estella Fish APRN.ACCESS LEAD - 05/16/2023 8:56 AM EDT PALLIATIVE MEDICINE [...] or sertraline, not sure why. Modified ESAS ([place] Symptom Assessment Scale) Information Provided By: Patient [...] ear normal. Nose: Nose normal. Mouth/Throat: Lips: [place]. Mouth: Mucous membranes are moist. No oral [...] suspiciousactivity was identified. 05/16/2023 by Estella Fish, RADIO INSTALLER, DRAWING IN MACHINE TENDER HELPER.ACCESS LEAD Urine Screen Lab Results Component Value Date UAMPH Negative 09/26/2021 UBARB2 Negative 09/26/2021 UBENZ Negative 09/26/2021 UCOC2 Negative 09/26/2021 UOPI Negative 09/26/2021 UOXYC Negative 09/26/2021 UPCP Negative 09/26/2021 UTHC Negative 09/26/2021 UETOH <11 09/26/2021 Assessment & Plan (Z51.5) Palliative care by specialist (primary encounter diagnosis) - Reviewed philosophy of palliative medicine - Discussed services offered by [facility] - Provided support -Discussed services offered by palliative medicine and how to contact us (C51.92) Primary malignant neoplasm of left lung metastatic [...] which included preparing to see the patient, [id number] patient care, completing clinical documentation, obtaining and/or [...] may have been partially generated using the [employer] voice recognition system. While every effort was made to correct voice recognition errors, kindly be aware that some errors may occasionally occur. documented in this encounterSumma Health Wadsworth - [facility]10-26-2023 Miscellaneous Notes* Telephone Encounter - [...] FYI.... Denita Rai RN documented in this encounterSumma Health Wadsworth - [facility]itt[facility] Center10-26-2023 Miscellaneous Notes* Telephone Encounter - [...] 75 mcg. Pauline Dennis documented in this encounterSumma Health Wadsworth - Rittman [facility] Center10-24-2023 Miscellaneous Notes* Telephone Encounter - Denita Rai RN - 05/13/2023 3:[address] Grigsby, treatment plan will be changing to Lumakras. Script sent to [facility] pharmacy. Denita Rai RN * Telephone Encounter - Analisa Stacy RPh - 05/13/2023 12:05 PM EDT Added future plan of pembrolizumab, carboplatin, and paclitaxel for after today's dose of pembrolizumab. (Was not certain if you were going to go ahead with today's dose or not.) Jose Stacy, MoeD, BCOP Whitney: Moe ValladaresD, BCOP documented in this encounterSumma Health Wadsworth - [facility]10-24-2023 NoteMarietta [facility]10-23-2023 History of Present illness Narrative* Alana, Deborah [...] 1201 PATIENT DISCHARGED TO: Ambulatory patient, left [place] department area. A Diagnostic radioactive procedure has taken place, with no further precautions necessary other than routine body substance precautions. More information regarding radiation safety can be found usingthis link: [email or web address] 20Diagnostic%20Nuclear%20Medicine%[email or web address] SIGNATURE: IGGY Vizcaino) PATIENT NAME: Cristal Gu DATE: May 12, 2023 TIME: 12:32 PM PAGER/CONTACT #: documented in this encounterSumma Health Wadsworth - [facility]itt[facility] Center10-23-2023 [facility]10-23-2023 NoteM[facility]10-19-2023 Miscellaneous Notes * Telephone Encounter - Denita [...] agree. Denita Rai, RN documented in this encounterSumma Health Wadsworth - [facility]10-16-2023 Miscellaneous Notes* Telephone Encounter - Analisa Stacy RPh - 05/05/2023 3:58 PM EDT Next appt and labs 05/13/23. Jose Stacy, MoeD, BCOP documented in this encounterSumma Health Wadsworth [facility]10-04-2023 Miscellaneous Notes* Telephone Encounter - [...] pended. Denita Rai RN documented in this encounterSumma Health Wadsworth - [facility]10-03-2023 NoteMari[facility]09-19-2023 Miscellaneous Notes* Telephone Encounter - Denita Rai [...] objections? Denita Rai RN documented in this encounterSumma Health Wadsworth - [facility]ittman [facility] Center09-12-2023 History of Present illness Narrative* Ania Peters RN - 04/01/2023 1:36 PM EDT Potassium 3.3 reviewed with Raimundo Miller CNP. She would like pt to get K 20 meq IV x1 dose today andwill send a script for oral K to his pharmacy. Pt and tx nurse informed. Ania Peters, RN documented in this encounterSumma Health Wad[facility]09-12-2023 History of Present illness Narrative* Denita [...] 01, 2023 2:16 PM documented in this encounterSumma Health Wadsworth - [facility]09-12-2023 Nurse Note* Yani Singer - 04/01/2023 12:51 PM EDT Patient states he has been coughing up a lot of stuff. Coughing up more blood then usual. documented in this encounterSumma Health Wadsworth - Rittman [facility] Center09-12-2023 History of Present illness Narrative* [...] scheduled follow-up and continued treatment. INTERIM HISTORY: [place] Gu returns for follow-up and continued treatment. [...] (HCC) Peripheral arterial disease (HCC) 2019 R GARDENER stent PAST SURGICAL HISTORY: PAST SURGICAL HISTORY Procedure Laterality Date BACK SURGERY HX 2019 CABG (4) VEIN GRAFTS & ARTERIAL GRAFT(S) 2016 LOWER EXTREMITY FUR NAILER W/WO STENT Right 2019 right common femoral [...] involving face and upper back. PATHOLOGY: 10/21/2022 [id number] NGS analysis KRAS G12C mutation present, 5.2% [...] No hypermetabolic osseous lesions 01/03/2023 Chest CTA ([facility]) Bilateral hilar soft tissue nodules concerning for [...] prior study, as above. 04/12/2022 Bone scan ([facility]) Degenerative findings. No evidence of metastatic [...] with moderate relief. Will consider referral to [facility] palliative medicine if symptoms persist. 7. [...] reaction versus viral syndrome. Improved. Patricia Miller APRN.ACCESS LEAD I spent a total of 30 minutes on the date of the service which included preparing to see the patient, [id number] patient care, completing clinical documentation, obtaining and/or reviewing separately obtained history, performing a medically appropriate examination, counseling and educating the pat ient/family/caregiver, ordering medications, tests, or procedures, independently interpreting results (not separately reported), and communicating results to the patient/family/caregiver. documented in this encounterSumma Health Wadsworth - [facility] Center08-22-2023 History of Present illness Narrative* [...] (HCC) Peripheral arterial disease (HCC) 2019 R GARDENER stent PAST SURGICAL HISTORY: PAST SURGICAL HISTORY Procedure Laterality Date BACK SURGERY HX 2019 CABG (4) VEIN GRAFTS & ARTERIAL GRAFT(S) 2016 LOWER EXTREMITY FUR NAILER W/WO STENT Right 2019 right common femoral [...] involving face and upper back. PATHOLOGY: 10/21/2022 [id number] NGS analysis KRAS G12C mutation present, 5.2% [...] No hypermetabolic osseous lesions 01/03/2023 Chest CTA ([facility]) Bilateral hilar soft tissue nodules concerning for [...] prior study, as above. 04/12/2022 Bone scan ([facility]) Degenerative findings. No evidence of metastatic [...] neck CT. [facility], and clinical evaluation most consistent with inflammatory/post-infectious findings. No suspicion for malignancy. The patient apparently chews tobacco, and was advised to discontinue.He will follow- up with ENT as indicated. 6. Cancer related pain Severe pain left upper chest wall since August 2022. Currently on Percocet and gabapentin with moderate relief. Will consider referral to [facility] palliative medicine if symptoms persist. 7. [...] worsen. Nina Grigsby MD documented in this encounterSumma Health Wadsworth - [facility]itt[facility]08-21-2023 Miscellaneous Notes* Telephone Encounter - Analisa Stacy RPh - 03/10/2023 11:05 AM EDT Instructed by pt to change pharmacy to [place], [place]. Jose Stacy, PharmD, BCOP * Telephone [...] authorize? Denita Rai RN documented in this encounterSumma Health Wadsworth - [facility]08-16-2023 Miscellaneous Notes* Telephone Encounter - [...] suggestions? Denita Rai RN documented in this encounterSumma Health Wadsworth - [facility]08-01-2023 Nurse Note* Pavithra Heart MA - 02/18/2023 2:39 PM EDT Patient hurt his back so he is having pain from that today. Pavithra Acuna MA documented in this encounterSumma Health Wadsworth - [facility]08-01-2023 History of Present illness Narrative* [...] (HCC) Peripheral arterial disease (HCC) 2019 R GARDENER stent PAST SURGICAL HISTORY: PAST SURGICAL HISTORY Procedure Laterality Date BACK SURGERY HX 2019 CABG (4) VEIN GRAFTS & ARTERIAL GRAFT(S) 2016 LOWER EXTREMITY FUR NAILER W/WO STENT Right 2019 right common femoral [...] involving face and upper back. PATHOLOGY: 10/21/2022 [id number] NGS analysis KRAS G12C mutation present, 5.2% [...] No hypermetabolic osseous lesions 01/03/2023 Chest CTA ([facility]) Bilateral hilar soft tissue nodules concerning for [...] prior study, as above. 04/12/2022 Bone scan ([facility]) Degenerative findings. No evidence of metastatic [...] with moderate relief. Will consider referral to [facility] palliative medicine if symptoms persist. 7. [...] care. Nina Grigsby MD documented in this encounterSumma Health Wadsworth [facility]07-31-2023 Miscellaneous Notes* Telephone Encounter - Yani Singer - 02/17/2023 2:14 PM EDT Patient has an OTV appointment on 02/18. Please place lab orders. Yani Singer documented in this encounterSumma Health Wadsworth - [facility]07-20-2023 Miscellaneous Notes* Telephone Encounter - Vanessa Carl - 02/06/2023 2:11 PM EDT ER records scanned. * Telephone Encounter - Denita Rai RN - 02/06/2023 1:20 PM EDT FYI: Pt reports that he went to [facility] ER w/ a right ear ache. Diagnosed w/ an ear infection. Sent home on Amoxicillin 500 mg BID x 10 days and Ciprodex gtts BID x 7 days. Tomasa: Please scan pt's ER records from [facility]. Thanks! Denita Rai RN documented in this encounterSumma Health Wadsworth [facility]07-11-2023 History of Present illness Narrative* Hector Limon MD - 01/28/2023 3:15 PM EDT Radiation Oncology - Follow Up Note PATIENT NAME: Cristal Gu PATIENT DIAGNOSIS: Lung cancer, left upper lobe, pleomorphic carcinoma, stage IIb [id number], stage IIB AJCC 8th edition (chest wall [...] left upper lobe, pleomorphic carcinoma, stage IIb [id number], stage IIB AJCC 8th edition (chest wall invasion), PD-L1 95%, KRAS G12C mutation present Doing fairly well, and has had a good response to recent left supraventricular chest wall radiation. He continues active follow-up with Dr. Grigsby. We will plan to see patient back on an as-needed basis. Signed by: Hector Limon MD cc: Christina Azul [address] [place] [phone] documented in this encounterSumma Health Wadsworth [facility]06-30-2023 History of Present illness Narrative* Hannah [...] Oglesby RN PATIENT NAME: Cristal Gu DATE: January 17, 2023 TIME: 1:08 PM * Deniat Yang RT(R) - 01/17/2023 12:45 PM EDT [...] 1300 PATIENT DISCHARGED TO: Ambulatory patient, left [place] department area. A Diagnostic radioactive procedure has taken place, with no further precautions necessary other than routine body substance precautions. More information regarding radiation safety can be found usingthis link: [email or web address] SIGNATURE: RT Charis(Marcella) PATIENT NAME: Cristal Gu DATE: January 17, 2023 TIME: 1:43 PM PAGER/CONTACT #: documented in this encounterSumma Health Wadsworth [facility]06-26-2023 Miscellaneous Notes* Telephone Encounter - [...] for 7 days. Authorizing Provider: PATRICIA MILLER APRN.ACCESS LEAD * Telephone Encounter - Denita Rai RN - 01/13/2023 2:47 PM EDT Patient phones requesting refills as follows: Last script written on 01/07/23 for 7 day supply. Requested Prescriptions Pending Prescriptions Disp Refills ALPRAZolam (XANAX) 0.25 mg tablet 15 tablet 0 Sig: Take 1 tablet by mouth twice daily for 7 days. Please review and advise. Denita Rai RN documented in this encounterSumma Health Wadsworth [facility]06-26-2023 Miscellaneous Notes* Telephone Encounter - [...] 01/17/23. Rosibel Wheeler LPN documented in this encounterSumma Health Wadsworth - [facility] Center06-22-2023 Miscellaneous Notes* Telephone Encounter - Vanessa Fam [facility] - 01/09/2023 4:03 PM EDT Records faxed to [facility] in [place] [phone]. documented in this encounterSumma Health Wadsworth - [facility] Center06-21-2023 Miscellaneous Notes* Telephone Encounter - MARGARET Finnegan - 01/08/2023 2:49 PM EDT Social Work Problem Referral Note INFORMATION/REFERRAL : Cristal Gu 67 year old male was referred by Leonel Zhu to [facility] Social Work for the following reason(s): [...] tab: Yes ELIZABETH Finnegan-Marguerite documented in this encounterSumma Health Wadsworth - [facility]06-20-2023 History of Present illness Narrative* Dominique [...] Written resources provided to patient. Contacted nurse admissions manager and SW regarding patient's current condition [...] Dosing Weight: 57.4 kg Estimated kilocalorie needs: 2467-9049 kilocalories determined by 30-35 kcal/kg Estimated protein needs: 57-86 grams determined by 1.0-1.5 g/kg Dosing weight Estimated fluid needs: ~6648-9388 milliliters based on 1 mL per kcal [...] Murphy MS, RDN, LD documented in this encounterSumma Health Wadsworth [facility]06-20-2023 History of Present illness Narrative* Aurelia Bradley RN - 01/07/2023 11:17 AM EDT LFT's reviewed with , ok to proceed with tx as written. Aurelia Bradley RN documented in this encounterSumma Health Wadsworth - [facility]06-20-2023 Miscellaneous Notes* Telephone Encounter - Lisa Figueroa - 01/07/2023 10:20 AM EDT Disregard. Patient just showed and currently in office now. Lisa Figueroa * Telephone Encounter - Lisa Figueroa - 01/07/2023 10:08 AM EDT Patient did not show for RV and treatment this morning. Lisa Figueroa documented in this encounterSumma Health Wadsworth [facility]06-19-2023 Miscellaneous Notes* Telephone Encounter - Yani Singer - 01/06/2023 11:43 AM EDT Patient has an OTV appointment on 01/06. Please place lab orders. Yani Singer documented in this encounterSumma Health Wad[facility]06-16-2023 Miscellaneous Notes* Telephone Encounter - Denita Rai RN - 01/03/2023 4:20 PM EDT Disposition: per Yusef, patient directed to: Emergency Room due to the issue being urgent. Pt confirms that he will be going to [facility] ER. Report phoned to Tea [facility] RN. Pt's last office note, copy of [...] concerns? Denita Rai RN documented in this encounterSumma Health Wadsworth - [facility]06-06-2023 Miscellaneous Notes* Telephone Encounter - Denita Rai RN - 12/24/2022 3:44 PM EDT Rosemarie from [facility] states that they received pt's MMW script, however, they are currently out of viscous lidocaine. Script will be filled at our pharmacy. Pt notified and verbalizes understanding. [employer] [facility] instructed to cancel the script. Denita Rai RN documented in this encounterSumma Health Wadsworth - [facility]06-06-2023 Miscellaneous Notes* Telephone Encounter - Denita Rai RN - 12/24/2022 3:07 PM EDT MMW script faxed to [facility] @ [phone]. Denita Rai RN * Telephone Encounter - [...] Swish and Swallow Authorizing Provider: PATRICIA MILLER APRN.ACCESS LEAD * Telephone Encounter - Denita Rai RN [...] pt? Denita Rai RN documented in this encounterSumma Health Wadsworth - [facility]05-30-2023 History of Present illness Narrative* [...] understanding. Aurelia Bradley RN documented in this encounterSumma Health Wadsworth - [facility]05-30-2023 History of Present illness Narrative* [...] (HCC) Peripheral arterial disease (HCC) 2019 R GARDENER stent PAST SURGICAL HISTORY: PAST SURGICAL HISTORY Procedure Laterality Date BACK SURGERY HX 2019 CABG (4) VEIN GRAFTS & ARTERIAL GRAFT(S) 2016 LOWER EXTREMITY FUR NAILER W/WO STENT Right 2019 right common femoral [...] involving face and upper back. PATHOLOGY: 10/21/2022 [id number] NGS analysis KRAS G12C mutation present, 5.2% [...] prior study, as above. 04/12/2022 Bone scan ([facility]) Degenerative findings. No evidence of metastatic [...] with moderate relief. Will consider referral to [facility] palliative medicine if symptoms persist. 7. [...] cancer. Nina Grigsby MD documented in this encounterSumma Health Wadsworth [facility]05-08-2023 Nurse Note* Ebony Marcelo Ma - 11/25/2022 10:09 AM EDT Clinical questionnaires incomplete due to not loading. Ebony Marcelo Ma documented in this encounterSumma Health Wadsworth - [facility]05-08-2023 History of Present illness Narrative* [...] (HCC) Peripheral arterial disease (HCC) 2019 R GARDENER stent PAST SURGICAL HISTORY: PAST SURGICAL HISTORY Procedure Laterality Date BACK SURGERY HX 2019 CABG (4) VEIN GRAFTS & ARTERIAL GRAFT(S) 2016 LOWER EXTREMITY FUR NAILER W/WO STENT Right 2019 right common femoral [...] involving face and upper back. PATHOLOGY: 10/21/2022 [id number] NGS analysis KRAS G12C mutation present, 5.2% [...] prior study, as above. 04/12/2022 Bone scan ([facility]) Degenerative findings. No evidence of metastatic [...] neck CT. [facility], and clinical evaluation most consistent with inflammatory/post-infectious findings. No suspicion for malignancy. The patient apparently chews tobacco, and was advised to discontinue.He will follow- up with ENT as indicated. 6. Cancer related pain Severe pain left upper chest wall since August 2022. Currently on Percocet and gabapentin with moderate relief. Will consider referral to [facility] palliative medicine if symptoms persist. 7. [...] which included preparing to see the patient, [id number] patient care, completing clinical documentation, obtaining and/or reviewing separately obtained history, performing a medically appropriate examination, counseling and educating the pat ient/family/caregiver, ordering medications, tests, or procedures, independently interpreting results (not separately reported), and communicating results to the patient/family/caregiver. documented in this encounterSumma Health Wadsworth [facility]05-04-2023 Miscellaneous Notes* Telephone Encounter - Ebony Marcelo Ma - 11/21/2022 11:[address] lab orders for appointment on 11/25/22. Ebony Marcelo Ma documented in this encounterSumma Health Wadsworth - [facility]05-03-2023 Miscellaneous Notes* Telephone Encounter - [...] ensure a day and has met with php mysql web developer before. We discussed the possibility of adding an antidepressant. Pt is concerned about his LFTs and he does not want to take anything that could effect those. Is there something you can prescribe that may increase appetite & help depression while not altering his liver function? Pt uses [facility] in [place] if you want to send something. I will also copy php mysql web developer and social work to be aware of changes/issues with patient. Merissa Fam RN documented in this encounterSumma Health Wadsworth [facility]05-03-2023 History of Present illness Narrative* G Erasto Limon MD - 11/20/2022 10:29 AM EDT Radiation Oncology - Follow Up Note PATIENT NAME: Cristal Gu PATIENT DIAGNOSIS: Lung cancer, left upper lobe, pleomorphic carcinoma, stage IIb [id number], stage IIB AJCC 8th edition (chest wall [...] left upper lobe, pleomorphic carcinoma, stage IIb [id number], stage IIB AJCC 8th edition (chest wall invasion), PD-L1 95%, KRAS G12C mutation present Doing fairly well, with good intial response to palliative radiation. He continues pembrolizumab tory Grigsby. Plan to see back in 4-6 weeks. Signed by: Hector Limon MD cc: Christina Azul [address] [place] [phone] documented in this encounterSumma Health Wadsworth - [facility]05-01-2023 History of Present illness Narrative* [...] (HCC) Peripheral arterial disease (HCC) 2019 R GARDENER stent PAST SURGICAL HISTORY: PAST SURGICAL HISTORY Procedure Laterality Date BACK SURGERY HX 2019 CABG (4) VEIN GRAFTS & ARTERIAL GRAFT(S) 2016 LOWER EXTREMITY FUR NAILER W/WO STENT Right 2019 right common femoral [...] involving face and upper back. PATHOLOGY: 10/21/2022 [id number] NGS analysis KRAS G12C mutation present, 5.2% [...] prior study, as above. 04/12/2022 Bone scan ([facility]) Degenerative findings. No evidence of metastatic [...] neck CT. The [facility], and clinical evaluation most consistent with inflammatory/post-infectious findings. No suspicion for malignancy. The patient apparently chews tobacco, and was advised to discontinue.He will follow- up with ENT as indicated. 6. Cancer related pain Severe pain left upper chest wall since August 2022. Currently on Percocet and gabapentin with moderate relief. Will consider referral to [facility] palliative medicine if symptoms persist. 7. Abnormal LFTs Labs from 11/11/2022 revealed significant elevation of the SGOT and SGPT, most likely transaminitis secondary to immunotherapy versus supplements (fenbendazole and curcumin). The patient was advised to discontinue all supplements, and avoid other agents which might contribute to liver dysfunction. Repeat labs and return visit in 1 week. Nina Grigsby MD documented in this encounterSumma Health Wadsworth [facility]04-27-2023 Miscellaneous Notes* Telephone Encounter - Yani Lucrecia - 11/14/2022 9:16 AM EDT Patient has an OTV appointment on 11/18. Please place lab orders. Yani Thompsons documented in this encounterSumma Health Wadsworth - [facility] Center04-25-2023 History of Present illness Narrative* Hector Limon MD - 11/12/2022 12:00 AM EDT [facility] Radiation Oncology Department RADIATION ONCOLOGY - COMPLETION NOTE PATIENT: CRISTAL GUDOB: 1955 DATES OF TREATMENT: 10/28/2022- 11/12/2022 DIAGNOSIS: Lung cancer, left upper lobe, pleomorphic carcinoma, stage IIb [id number], stage IIB AJCC 8th edition (chest wall [...] / WST 0:33 AM documented in this encounterSumma Health Wadsworth - [facility] Center04-24-2023 History of Present illness Narrative* [...] time. Rita Hurst RN documented in this encounterSumma Health Wadsworth - [facility]04-24-2023 Miscellaneous Notes* Telephone Encounter - Merissa Rodríguez (Tray) - 11/11/2022 3:10 PM EDT Ambulatory Pharmacy Prior Authorization Note Provider Intervention Required?: No- Pharmacy completed on your behalf. Rx Plan: Drug: Oxycodone-Acetaminophen 5/325 Cover My Meds Diamond: [id number] Determination: Approved Prior Authorization/Case #: [id number] Prior Authorization Expiration: 07/10/2023 Time to PA Submission in CMM: 15 min Time to PA Determination in CMM: Same day Additional Information: For questions relating to this submission, please contact [facility] at [phone] documented in this encounterSumma Health Wadsworth [facility]04-24-2023 Miscellaneous Notes* Telephone Encounter - Merissa Fam RN - 11/11/2022 12:51 PM EDT Please sign if agreeable. Merissa Fam RN documented in this encounterSumma Health Wadsworth - [facility]04-24-2023 History of Present illness Narrative* [...] (HCC) Peripheral arterial disease (HCC) 2019 R GARDENER stent PAST SURGICAL HISTORY: PAST SURGICAL HISTORY Procedure Laterality Date BACK SURGERY HX 2019 CABG (4) VEIN GRAFTS & ARTERIAL GRAFT(S) 2016 LOWER EXTREMITY FUR NAILER W/WO STENT Right 2019 right common femoral [...] involving face and upper back. PATHOLOGY: 10/21/2022 [id number] NGS analysis KRAS G12C mutation present, 5.2% [...] prior study, as above. 04/12/2022 Bone scan ([facility]) Degenerative findings. No evidence of metastatic [...] with moderate relief. Will consider referral to [facility] palliative medicine if symptoms persist. 7. Abnormal LFTs Labs from today reveal significant elevation of the SGOT and SGPT, most likely transaminitis secondary to immunotherapy. We will hold treatment today and repeat labs in 1 week on return. A long course of steroids will be considered if LFTs remain abnormal. Nina Grigsby MD documented in this encounterSumma Health Wadsworth - [facility]04-17-2023 History of Present illness Narrative* G Erasto Limon MD - 11/04/2022 12:12 PM EDT Radiation Oncology - On Treatment Review (OTR) Note PATIENT NAME: Cristal Gu PATIENT DIAGNOSIS: Lung cancer, left upper lobe, pleomorphic carcinoma, stage IIb [id number], stage IIB AJCC 8th edition (chest wall [...] outlined. Hector Limon MD documented in this encounterSumma Health Wadsworth - [facility]04-15-2023 Miscellaneous Notes* Telephone Encounter - Jayson Allred MD - 11/02/2022 9:24 AM EDT Called with increasing cough and occasional blood tinged sputum. Deenies any other symptoms. Levuin sent Instructed to see Dr. Grigsby next week documented in this encounterSumma Health Wadsworth - [facility] Center04-13-2023 History of Present illness Narrative* [...] (HCC) Peripheral arterial disease (HCC) 2019 R GARDENER stent PAST SURGICAL HISTORY: PAST SURGICAL HISTORY Procedure Laterality Date BACK SURGERY HX 2019 CABG (4) VEIN GRAFTS & ARTERIAL GRAFT(S) 2016 LOWER EXTREMITY FUR NAILER W/WO STENT Right 2019 right common femoral [...] involving face and upper back. PATHOLOGY: 10/21/2022 [id number] NGS analysis KRAS G12C mutation present, 5.2% [...] prior study, as above. 04/12/2022 Bone scan ([facility]) Degenerative findings. No evidence of metastatic [...] neck CT. [facility], and clinical evaluation most [...] persist. Nina Grigsby MD documented in this encounterSumma Health Wadsworth - [facility] Center04-12-2023 History of Present illness Narrative* [...] states he was reading online and watching [employer] and felt confused. Discussed with pt importance [...] Gray, , RDN, LD documented in this encounterSumma Health Wadsworth - [facility]04-06-2023 History of Present illness Narrative* G Erasto Limon MD - 10/24/2022 5:19 PM EDT Radiation Oncology - Follow Up/new problem note PATIENT NAME: Cristal Gu PATIENT DIAGNOSIS: Lung cancer, left upper lobe, pleomorphic carcinoma, stage IIb [id number], stage IIB AJCC 8th edition (chest wall [...] left upper lobe, pleomorphic carcinoma, stage IIb [id number], stage IIB AJCC 8th edition (chest wall [...] by: Hector Limon MD cc: Christina Azul [address] [place] [address] No referring provider defined for this encounter. documented in this encounterSumma Health Wadsworth - [facility] Center04-06-2023 Miscellaneous Notes* Telephone Encounter - [...] Reminded pt of his appointment w/ the php mysql web developer this coming Friday, 10/28. Pt verbalizes [...] protocol. Denita Rai RN documented in this encounterSumma Health Wadsworth - [facility]04-05-2023 Miscellaneous Notes* Telephone Encounter - Rolanda Oneil Pss - 10/23/2022 8:11 AM EDT Patient has appt already scheduled with JEROME on 10/28. Patient is scheduled to see Classification Inspector @ 10:00 after his JEROME on 10/28. [...] Pt voiced interest in meeting w/ the php mysql web developer. Order pended. Denita Rai RN documented in this encounterSumma Health Wadsworth - [facility]04-03-2023 Nurse Note* Yani Singer - 10/21/2022 1:37 PM EDT Clinical questionnaires incomplete due to Nurse was Interrupted by provider during rooming process documented in this encounterSumma Health Wadsworth - [facility]itt[facility] Center04-03-2023 History of Present illness Narrative* [...] (HCC) Peripheral arterial disease (HCC) 2019 R GARDENER stent PAST SURGICAL HISTORY: PAST SURGICAL HISTORY Procedure Laterality Date BACK SURGERY HX 2019 CABG (4) VEIN GRAFTS & ARTERIAL GRAFT(S) 2016 LOWER EXTREMITY FUR NAILER W/WO STENT Right 2019 right common femoral [...] prior study, as above. 04/12/2022 Bone scan ([facility]) Degenerative findings. No evidence of metastatic [...] persist. Nina Grigsby MD documented in this encounterSumma Health Wadsworth - [facility]04-03-2023 History of Present illness Narrative* G Erasto Limon MD - 10/21/2022 12:00 AM EDT CRISTAL GU [id number] 10/21/2022 [facility] Radiation Oncology Department SIMULATION NOTE DATE OF SIMULATION: 10/21/2022 THERAPIST: Elizabeth Severino MACHINE: [employer] mCT DIAGNOSIS: Malignant neoplasm of upper lobe, [...] / NRS 34:40 PM documented in this encounterSumma Health Wadsworth - Rittman [facility] Center04-03-2023 History of Present illness Narrative* Hector Limon MD - 10/21/2022 12:00 AM EDT CRISTAL GU [id number] 10/21/2022 [facility] Department of Radiation Oncology Treatment Planning [...] Limon M.D. 33:29 PM documented in this encounterSumma Health Wadsworth - Ritt[facility] Center03-31-2023 Miscellaneous Notes* Telephone Encounter - Yani Singer - 10/18/2022 3:50 PM EDT Patient has an OTV appointment on 10/21. Please place lab orders. Yani Singer documented in this encounterSumma Health Wadsworth - Rittman [facility] Center03-31-2023 Miscellaneous Notes* Telephone Encounter - [...] Please obtain ER reports. Thanks, Patricia Miller APRN.ACCESS LEAD * Telephone Encounter - Denita Rai RN - 10/17/2022 2:54 PM EDT Pt c/o intolerable pain in his left chest, shoulder and arm. Rates his pain 9- 10/10. Describes as aconstant aching pain. Was seen recently in the ER and prescribed a medrol dose pack. Pt notes the medrol tore up his stomach. Has old scripts of Oxycodone and [place] at home. Took one dose of each w/ very little relief. What do you advise for his pain? Denita Rai RN documented in this encounterSumma Health Wadsworth - Rittman [facility] Center03-28-2023 Miscellaneous Notes* Telephone Encounter - [...] 10:00 AM EDT RADIOLOGY CALL CENTER INTAKE HOOP CUTTER: BIBI EXT: [id number] DATE: 10/15/2022 TIME: 10:01AM TRACKING #. [id number] REQUESTING PERSON: [place] PHONE/PAGER: [phone] REQUESTING STAFF: Jaydon Grigsby MD PHONE/PAGER: [phone] SPECIFICS OF THE REQUEST: (Please be as detailed as possible. If request is lymph node biopsy, specify LOCATION of the node if possible): IMAGING GUIDED BIOPSY LUNG ] SPECIAL REQUESTS: TISSUE SAMPLE, LABWORK: Routine Evaluation -Fine needle aspiration (FNA), core biopsy, no preference, unsure, specific processing request for pathology (For example: send for ER, DC, HER2/sarah or possible lymphoma send in RPMI [...] schedule, including the need for an available hazardous materials driver. If a percutaneous biopsy or drainage is not felt to be safe or an alternative method for establishing a diagnosis is possible, this will be discussed directly with the requesting physician. documented in this encounterSumma Health Wadsworth - Rittman [facility] Center03-28-2023 History of Present illness Narrative* [...] his left shoulder. He was seen at [facility] ER on 10/09/2022 and given a [...] (HCC) Peripheral arterial disease (HCC) 2019 R GARDENER stent PAST SURGICAL HISTORY: PAST SURGICAL HISTORY Procedure Laterality Date BACK SURGERY HX 2019 CABG (4) VEIN GRAFTS & ARTERIAL GRAFT(S) 2016 LOWER EXTREMITY FUR NAILER W/WO STENT Right 2019 right common femoral [...] prior study, as above. 04/12/2022 Bone scan ([facility]) Degenerative findings. No evidence of metastatic [...] at length. We elected to refer to [facility] interventional radiology to evaluate for biopsy [...] indicated. Nina Grigsby MD documented in this encounterSumma Health Wadsworth - Rittman [facility] Center03-27-2023 NotebmSumma Health03-23-2023 History of Present illness Narrative* Deborah Cooper [...] [id number] PATIENT DISCHARGED TO: Ambulatory patient, left [place] department area. A Diagnostic radioactive procedure has taken place, with no further precautions necessary other than routine body substance precautions. More information regarding radiation safety can be found usingthis link: [email or web address] SIGNATURE: RT Charis(Marcella) PATIENT NAME: Cristal Gu DATE: October 10, 2022 TIME: 8:31 AM PAGER/CONTACT #: documented in this encounterSumma Health Wadsworth - [facility]itt[facility] Center03-06-2023 History of Present illness Narrative* Nina [...] leg. He is due to see his assistant at surgery to evaluate for possible left leg vascular [...] (HCC) Peripheral arterial disease (HCC) 2019 R GARDENER stent PAST SURGICAL HISTORY: PAST SURGICAL HISTORY Procedure Laterality Date BACK SURGERY HX 2019 CABG (4) VEIN GRAFTS & ARTERIAL GRAFT(S) 2016 LOWER EXTREMITY FUR NAILER W/WO STENT Right 2019 right common femoral [...] prior study, as above. 04/12/2022 Bone scan ([facility]) Degenerative findings. No evidence of metastatic [...] 2016. Status post CABG x 4 in [place] 2015. Currently stable. Continue management per PCP/cardiology. [...] indicated. Nina Grigsby MD documented in this encounterSumma Health Wadsworth - [facility]itt[facility] Center03-01-2023 NoteUT Cardiology - [facility] Isabel Vasquez Haider Gu Sr. is a 67 y.o. year old male patient being seen for Coronary Artery Disease, Peripheral Vascular Disease, Carotid Stenosis, and Hypertension Patient Active Problem List Diagnosis Coronary artery disease involving coronary bypass graft of knik heart without angina pectoris PVD (peripheral vascular disease) ([facility]) Primary hypertension Stenosis of carotid artery No [...] and cilostazol. Carotid ultrasound done at the [facility] 10/30/2020: Report mentions significant area reduction [...] and Lung CA He underwent VATS at [facility] for a lung mass last year [...] Nose: Nose normal. Mouth/Throat: (more content not included)...[facility] 09-17-2022 History of Present illness Narrative* Maricruz [...] 17, 2022 12:35 PM documented in this encounterSumma Health Wadsworth - [facility]itt[facility] Center02-23-2023 Miscellaneous Notes* Telephone Encounter - Florida Kearney - 09/12/2022 11:46 AM EST Patient will get labs with his CT on 09/17/2022. I took patient off lab schedule on 09/23/2022@3:15pm. Florida Kearney * Addendum Note - Nina Grigsby MD - 09/12/2022 11:04 AM ESTAddended by: NNIA GRIGSBY on: 09/12/2022 11:04 AM Modules accepted: [...] well. Denies fevers. Has been taking Guerita Sturgis cold as well as Advil for his symptoms. Pt due to have CT scans 10/08/22. What do you advise? Denita Rai RN documented in this encounterSumma Health Wadsworth - Rittman [facility] Center01-31-2023 History of Present illness Narrative* [...] (HCC) Peripheral arterial disease (HCC) 2019 R GARDENER stent PAST SURGICAL HISTORY: PAST SURGICAL HISTORY Procedure Laterality Date BACK SURGERY HX 2019 CABG (4) VEIN GRAFTS & ARTERIAL GRAFT(S) 2016 LOWER EXTREMITY FUR NAILER W/WO STENT Right 2019 right common femoral [...] prior study, as above. 04/12/2022 Bone scan ([facility]) Degenerative findings. No evidence of metastatic [...] indicated. Nina Grigsby MD documented in this encounterSumma Health Wadsworth - [facility]itt[facility] Center12-06-2022 History of Present illness Narrative* G Erasto Limon MD - 06/25/2022 10:43 AM EST Radiation Oncology - Follow Up Note PATIENT NAME: Cristal Gu PATIENT DIAGNOSIS: Lung cancer, left upper lobe, pleomorphic carcinoma, stage IIb [id number], stage IIB AJCC 8th edition (chest wall [...] left upper lobe, pleomorphic carcinoma, stage IIb [id number], stage IIB AJCC 8th edition (chest wall [...] by: Hector Limon MD cc: Christina Azul [facility] [place] [address] No referring provider defined for this encounter. documented in this encounterSumma Health Wadsworth - Rittman Medical Center12-06-2022 History of Present illness Narrative* Patricia Miller APRN.ACCESS LEAD - 06/25/2022 10:09 AM EST PATIENT NAME: Cristal Gu DATE: 06/25/2022 PRIMARY CARE PHYSICIAN: Dr. Chrsitina Azul OTHER PHYSICIANS: Dr. Verito Whelan, Dr. 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 He was not COVID tested. [...] (HCC) Peripheral arterial disease (HCC) 2019 R GARDENER stent PAST SURGICAL HISTORY: PAST SURGICAL HISTORY Procedure Laterality Date BACK SURGERY HX 2019 CABG (4) VEIN GRAFTS & ARTERIAL GRAFT(S) 2016 LOWER EXTREMITY FUR NAILER W/WO STENT Right 2019 right common femoral [...] prior study, as above. 04/12/2022 Bone scan ([facility]) Degenerative findings. No evidence of metastatic [...] be referred back to ENT. Patricia Miller APRN.ACCESS LEAD I spent a total of 30 minutes on the date of the service which included preparing to see the patient, [id number]-ma-[id number] patient care, completing clinical documentation, obtaining and/or reviewing separately obtained history, performing a medically appropriate examination, counseling and educating the pat ient/family/caregiver, ordering medications, tests, or procedures, independently interpreting results (not separately reported), and communicating results to the patient/family/caregiver. I spent a total of 30 minutes on the date of the service which included preparing to see the patient, [id number]-[id number] patient care, completing clinical documentation, obtaining and/or reviewing separately obtained history, performing a medically appropriate examination, counseling and educating the pat ient/family/caregiver, ordering medications, tests, or procedures, independently interpreting results (not separately reported), and communicating results to the patient/family/caregiver. documented in this encounterSumma Health Wadsworth - [facility]itt[facility] Center11-25-2022 History of Present illness Narrative* Deborah [...] 14, 2022 9:23 AM documented in this encounterSumma Health Wadsworth - Rittman [facility] Center11-22-2022 History of Present illness Narrative* Denita [...] 11, 2022 2:21 PM documented in this encounterSumma Health Wadsworth - [facility]itt[facility] Center11-22-2022 History of Present illness Narrative* G Erasto Limon MD - 06/11/2022 1:28 PM EST Radiation Oncology - Follow Up Note PATIENT NAME: Cristal Gu PATIENT DIAGNOSIS: Lung cancer, left upper lobe, pleomorphic carcinoma, stage IIb [id number], stage IIB AJCC 8th edition (chest wall [...] left upper lobe, pleomorphic carcinoma, stage IIb [id number], stage IIB AJCC 8th edition (chest wall [...] by: Hector Limon MD cc: Christina Azul [address] [place], [place] [id number] No referring provider defined for this encounter. documented in this encounterSumma Health Wadsworth - [facility]itt[facility] Center11-18-2022 Miscellaneous Notes* Telephone Encounter - [...] 1:45. Rosibel Wheeler LPN documented in this encounterSumma Health Wadsworth - Rittman [facility] Center11-17-2022 Miscellaneous Notes* Telephone Encounter - Yanira Infante - 06/06/2022 9:13 AM EST Called patient to follow up on missed appointment with Radha Palmer PA-C on 05/16. Unable to reach patient or leave a message at the number provided - mailbox is full. documented in this encounterSumma Health Wadsworth - [facility] Center10-24-2022 Miscellaneous Notes* Telephone Encounter - Yanira [...] needs at this time. documented in this encounterSumma Health Wadsworth - [facility]ittman [facility] Center10-12-2022 NotePROCEDURE: XR HIP RT 2 3V WO PELVIS HISTORY: Hip pain COMPARISON: None. FINDINGS: BONES:No fracture, acute abnormality, or significant arthropathy. SOFT TISSUES:No visible soft tissue swelling. EFFUSION:None visible. OTHER: Atherosclerotic coronary artery disease. Endovascular stent within iliac artery. IMPRESSION: 1. No acute bone abnormality or significant degenerative joint disease of the right hip. Electronically authenticated by: TRUDY GUTIERREZ Date: 2022-05-01 17:28[facility]10-12-2022 History of Present illness Narrative* Hector Limon MD - 05/01/2022 12:00 AM EDT [facility] Radiation Oncology Department RADIATION ONCOLOGY - COMPLETION NOTE PATIENT: CRISTAL GUDOB: 1955 DATES OF TREATMENT: 03/26/2022- 05/01/2022 DIAGNOSIS: Lung cancer, left upper lobe, pleomorphic carcinoma, stage IIb [id number], stage IIB AJCC 8th edition (chest wall [...] / ANJUT 24:03 PM documented in this encounterSumma Health Wadsworth - Rittman [facility] Center10-10-2022 Miscellaneous Notes* Telephone Encounter - Domonique Estrada RN - 04/29/2022 3:10 PM EDT Provided code for pharmacy, patient's medication ran through. * Telephone Encounter - TIFFANY Navarro - 04/29/2022 2:51 PM EDT [facility] in [place] called stating they need a dx code for ipratropium documented in this encounterSumma Health Wadsworth - Rittman [facility] Center10-10-2022 Miscellaneous Notes* Telephone Encounter - [...] you! Merissa Fam RN documented in this encounterSumma Health Wadsworth - Rittman [facility] Center10-03-2022 History of Present illness Narrative* G Erasto Limon MD - 04/22/2022 11:25 AM EDT Radiation Oncology - On Treatment Review (OTR) Note PATIENT NAME: Cristal Gu PATIENT DIAGNOSIS: Lung cancer, left upper lobe, pleomorphic carcinoma, stage IIb [id number], stage IIB AJCC 8th edition (chest wall [...] outlined. Hector Limon MD documented in this encounterSumma Health Wadsworth - [facility] Center09-28-2022 Miscellaneous Notes* Telephone Encounter - Virgie Dominguez - 04/17/2022 11:14 AM EDT Patient coming in to see you on Friday04/30/22 for follow up with labs. Please add lab orders. Thanks. Virgie Dominguez MA documented in this encounterSumma Health Wadsworth - Ritt[facility] Center09-26-2022 History of Present illness Narrative* Hector Limon MD - 04/15/2022 9:13 AM EDT Radiation Oncology - On Treatment Review (OTR) Note PATIENT NAME: Cristal Gu PATIENT DIAGNOSIS: Lung cancer, left upper lobe, pleomorphic carcinoma, stage IIb [id number], stage IIB AJCC 8th edition (chest wall [...] well. Hector Limon MD documented in this encounterSumma Health Wadsworth - [facility]itt[facility] Center09-22-2022 Miscellaneous Notes* Telephone Encounter - Rosibel Wheeler LPN - 04/11/2022 12:19 PM EDT Patient states pharmacy did contact him and they are working on it. Rosibel Wheeler LPN * Telephone Encounter - Rosibel Wheeler LPN - 04/01/2022 1:17 PM EDT I called [facility] in [place] to get an update on Okie's nebulizer as he said he does not have one at home. Ofe in the pharmacy is going to look into it to see why this prescription was never completed. Laurence call the patient to get updated insurance information. Rosibel Wheeler LPN documented in this encounterSumma Health Wadsworth - [facility]itt[facility] Center09-19-2022 History of Present illness Narrative* Hector Limon MD - 04/08/2022 10:18 AM EDT Radiation Oncology - On Treatment Review (OTR) Note PATIENT NAME: Cristal Gu PATIENT DIAGNOSIS: Lung cancer, left upper lobe, pleomorphic carcinoma, stage IIb [id number], stage IIB AJCC 8th edition (chest wall [...] reviewed. Hector Limon MD documented in this encounterSumma Health Wadsworth - [facility]itt[facility] Center09-14-2022 History of Present illness Narrative* [...] Dosing Weight: 58.9 kg Estimated kilocalorie needs: 3144-0264 kilocalories determined by 30-35 kcal/kg Estimated protein needs: 59-88 grams determined by 1.0-1.5 g/kg Dosing weight Estimated fluid needs: ~4668-6314 milliliters based on 1 mL per kcal [...] Gray MS, RDN, LD documented in this encounterSumma Health Wadsworth - [facility] Center09-12-2022 Miscellaneous Notes* Telephone Encounter - Carolyn Pérez MA - 04/01/2022 3:45 PM [facility]T [facility] can get F[facility] over The pharmacy need a new Rx [phone] Fax The code need to be on the RX documented in this encounterSumma Health Wadsworth - Rittman [facility] Center09-12-2022 History of Present illness Narrative* Hector Limon MD - 04/01/2022 9:43 AM EDT Radiation Oncology - On Treatment Review (OTR) Note PATIENT NAME: Cristal Gu PATIENT DIAGNOSIS: Lung cancer, left upper lobe, pleomorphic carcinoma, stage IIb [id number], stage IIB AJCC 8th edition (chest wall [...] outlined. Hector Limon MD documented in this encounterSumma Health Wadsworth - [facility]itt[facility] Center09-06-2022 History of Present illness Narrative* Hector Limon MD - 03/26/2022 9:48 AM EDT Radiation Oncology - On Treatment Review (OTR) Note PATIENT NAME: Cristal Gu PATIENT DIAGNOSIS: Lung cancer, left upper lobe, pleomorphic carcinoma, stage IIb [id number], stage IIB AJCC 8th edition (chest wall [...] prescribed. Hector Limon MD documented in this encounterSumma Health Wadsworth - [facility] Center08-31-2022 History of Present illness Narrative* Hector Limon MD - 03/20/2022 4:42 PM EDT sim documented in this encounterSumma Health Wadsworth - Rittman Medical Center08-30-2022 History of Present illness Narrative* [...] cancer, seen for scheduled follow-up. INTERIM HISTORY: [facility] returns for follow-up and labs. He [...] (HCC) Peripheral arterial disease (HCC) 2019 R GARDENER stent PAST SURGICAL HISTORY: PAST SURGICAL HISTORY Procedure Laterality Date BACK SURGERY HX 2019 CABG (4) VEIN GRAFTS & ARTERIAL GRAFT(S) 2016 LOWER EXTREMITY FUR NAILER W/WO STENT Right 2019 right common femoral [...] which included preparing to see the patient, [id number]-gn-[id number] patient care, completing clinical documentation, obtaining and/or reviewing separately obtained history, performing a medically appropriate examination, counseling and educating the pat ient/family/caregiver, ordering medications, tests, or procedures, independently interpreting results (not separately reported), and communicating results to the patient/family/caregiver. documented in this encounterSumma Health Wadsworth - Rittman [facility] Center08-25-2022 History of Present illness Narrative* G Erasto Limon MD - 03/14/2022 12:00 AM EDT CRISTAL GU [id number] 03/14/2022 [facility] Radiation Oncology Department SIMULATION NOTE DATE OF SIMULATION: 03/14/2022 THERAPIST: Barbara Severino MACHINE: [employer] DIAGNOSIS: Malignant neoplasm of upper lobe, left bronchus or lungC34.12 AREA: LUNG CONTRAST: None <Select> Consent in Epic: Yes PATIENT POSITION: Supine. FIXATION DEVICE: In order to achieve accurate and reproducible treatments, the patient is immobilized with THE WINGBOARD, B PAD, CUSTOM VACBAG, SBRT KNEE SPONGE 4DCT WAS UTILIZED AT [facility] A time-out was conducted and recorded by [...] / NRS 21:18 PM documented in this encounterSumma Health Wadsworth - Ritt[facility] Center08-25-2022 History of Present illness Narrative* Hector Limon MD - 03/14/2022 12:00 AM EDT CRISTAL GU [id number] 03/14/2022 [facility] Department of Radiation Oncology Treatment Planning [...] and DVH. Electronically Signed Erasto Limon M.D. 9/01/11232:37 PM documented in this encounterSumma Health Wadsworth - Rittman [facility] Center08-10-2022 Miscellaneous Notes* Telephone Encounter - [...] Pss * Telephone Encounter - Vanessa Fam [facility] - 02/26/2022 2:05 PM EDT Records faxed to [facility]. * Telephone Encounter - Ebony Barcenas [facility] - 02/26/2022 12:58 PM EDT [facility] derm scheduling out to April. Tomasa will you please fax records to [facility] jose [phone]. They will call pt to schedule, demo in your box. Thanks! * Telephone Encounter - Denita Rai RN - 02/26/2022 12:50 PM EDT Clerical: Please schedule pt w/ Derm JATINDER. Pt willing to see local or [facility]. Thanks, Denita Rai, RN * Telephone Encounter - Patricia Miller APRN.ACCESS LEAD - 02/26/2022 12:49 PM EDT Signed. Patricia Miller APRN.ACCESS LEAD * Telephone Encounter - Denita Rai RN [...] all day. Pt has not seen a pillow filler for his skin issue. Consult order pended if you agree. Denita Rai RN documented in this encounterSumma Health Wadsworth - [facility]itt[facility] Center08-03-2022 History of Present illness Narrative* [...] rash is still pruritic. He is applying ztqq-oyf-vbyyaajevfrrh. He denies fevers, chills, night sweats and [...] (HCC) Peripheral arterial disease (HCC) 2019 R GARDENER stent PAST SURGICAL HISTORY: PAST SURGICAL HISTORY Procedure Laterality Date BACK SURGERY HX 2019 CABG (4) VEIN GRAFTS & ARTERIAL GRAFT(S) 2016 LOWER EXTREMITY FUR NAILER W/WO STENT Right 2019 right common femoral [...] 10.2. Patricia Miller APRN.CNP documented in this encounterSumma Health Wadsworth - [facility]itt[facility] Center07-25-2022 Miscellaneous Notes* Telephone Encounter - Denita Rai RN - 02/11/2022 11:36 AM EDT Pt notified and verbalizes understanding. Advised he call back if his symptoms persist. eDnita Rai RN * Telephone Encounter - Denita Rai RN - 02/11/2022 11:13 AM EDT Script pended. Call placed to pt. No answer. Voicemail full. Unable to leave a message. Denita Rai RN * Telephone Encounter - Patricia Miller APRN.RONAL - 02/11/2022 10:25 AM EDT Can try a medrol-dose pack. Thanks. Patricia Miller APRN.ACCESS LEAD * Telephone Encounter - Denita Rai RN [...] possible. Denita Rai RN documented in this encounterSumma Health Wadsworth - [facility]itt[facility] Center07-21-2022 Miscellaneous Notes* Telephone Encounter - Lisa Figueroa - 02/07/2022 4:30 PM EDT Patient sent to [facility] for [facility]. Faxed order to [place] scheduling February 07, 2022 4:31 PM And the department is going to work with patient tomorrow. Lisa Figueroa documented in this encounterSumma Health Wadsworth - [facility]itt[facility] Center07-21-2022 History of Present illness Narrative* Patricia Miller APRN.ACCESS LEAD - 02/07/2022 2:30 PM EDT PATIENT NAME: [...] (HCC) Peripheral arterial disease (HCC) 2019 R GARDENER stent PAST SURGICAL HISTORY: PAST SURGICAL HISTORY Procedure Laterality Date BACK SURGERY HX 2019 CABG (4) VEIN GRAFTS & ARTERIAL GRAFT(S) 2016 LOWER EXTREMITY FUR NAILER W/WO STENT Right 2019 right common femoral [...] 2015. Status post CABG x 4 in [place] 2015. Currently stable. Continue management per PCP/cardiology. [...] PRBCs. 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 Signed by: Merissa Fam RN documented in this encounterSumma Health Wadsworth - Ritt[facility] Center07-13-2022 History of Present illness Narrative* G Erasto Limon MD - 01/30/2022 3:00 PM EDT Radiation Oncology -follow-up note PATIENT NAME: Cristal Gu PATIENT REQUESTING PROVIDER: Dr. Grigsby DIAGNOSIS: 66 year old male with lung cancer, left upper lobe, pleomorphic carcinoma, stage IIb [id number], stage IIB AJCC 8th edition (chest wall [...] (HCC) Peripheral arterial disease (HCC) 2019 R GARDENER stent Prior radiation therapy, collagen vascular disease, or inflammatory bowel disease: No PAST SURGICAL HISTORY Procedure Laterality Date BACK SURGERY HX 2019 CABG (4) VEIN GRAFTS & ARTERIAL GRAFT(S) 2016 LOWER EXTREMITY FUR NAILER W/WO STENT Right 2019 right common femoral [...] left upper lobe, pleomorphic carcinoma, stage IIb [id number], stage IIB AJCC 8th edition (chest wall [...] by: Hector Limon MD cc: Christina Azul [facility] [place] [address] Nina Grigsby ([facility]) [address] [place] [address] [place] [address] documented in this encounterSumma Health Wadsworth - Ritt[facility] Center07-12-2022 History of Present illness Narrative* Ton Cervantes CRT - 01/29/2022 7:59 AM EDT PULM FUNCTION SMARTBLOCK: Provider: Verito Whelan MD Spirometry w/BD: 1 DLCO: 1 System: 5 - [id number] documented in this encounterSumma Health Wadsworth - Ritt[facility] Center07-12-2022 History of Present illness Narrative* [...] 9 on presentation. 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 He smoked 75 [...] (HCC) Peripheral arterial disease (HCC) 2019 R GARDENER stent PAST SURGICAL HISTORY Procedure Laterality Date BACK SURGERY HX 2019 CABG (4) VEIN GRAFTS & ARTERIAL GRAFT(S) 2016 LOWER EXTREMITY FUR NAILER W/WO STENT Right 2019 right common femoral [...] Normal Neuro: Gait normal. Labs and imaging: [facility] [address] [place] [address] Test Date: 2022-01-29 Pat Name: CRISTAL GU Department: Room: Gender: Male Hotel Controller: : 1955 Requested By: Order Number: [id number] Reading MD: Interpretive Statements Pre BD: FVC [...] for spirometry met. // IMPRESSION: Site: ID: [id number] Name: CRISTAL GU Visit Date: 01/29/2022 Doctor: Hotel Controller: Ton Cervantes Age: 66 Date of : [...] 0.69 0.27 1.69 0.40 57 0.52 30 BYD30-44 (L/sec) 2.45 1.14 4.26 1.07 43 1.27 [...] 2.68 BLOOD GASES HgbGmL (gm/L) 120-180 94 [facility] [address] [place] [address] Test Date: 2021-05-21 Pat Name: CRISTAL UG Department: Room: Gender: Male Hotel Controller: : 1955 Requested By: Order Number: [id number] Reading MD: Interpretive Statements PRE AND POST [...] and carboxyhemoglobin corrected. // IMPRESSION: Site: ID: [id number] Name: CRISTAL GU Visit Date: 05/21/2021 Doctor: Hotel Controller: Merissa Ashley Age: 66 Date of : 1955 Gender: Male Race: White Height: 65.94 in Weight: 126.00 lbs BSA: 1.643 Diagnosis: COPD Dyspnea: Cough: Wheeze: Tobacco Product: Cigarette Years Smoked: Packs/Day: Years Quit: Medications: Comments: PRE AND POST NIOXN: ATS/ERS acceptability and repeatability standards for spirometry [...] 0.70 0.27 1.71 0.17 24 0.28 61 PYC43-57 (L/sec) 2.48 1.16 4.30 0.44 17 0.73 [...] * No suspicious FDG avid osseous lesion. Preassembler And Inspector: KENAN Transcribe Date/Time: May 28 2021 9:33A [...] in 3 months Verito Whelan MD Respiratory [facility] documented in this encounterSumma Health Wad[facility]07-12-2022 History of Present illness Narrative* Ana [...] 29, 2022 7:40 AM documented in this encounterSumma Health Wadsworth - [facility] Center07-05-2022 History of Present illness Narrative* [...] (HCC) Peripheral arterial disease (HCC) 2019 R GARDENER stent PAST SURGICAL HISTORY: PAST SURGICAL HISTORY Procedure Laterality Date BACK SURGERY HX 2019 CABG (4) VEIN GRAFTS & ARTERIAL GRAFT(S) 2016 LOWER EXTREMITY FUR NAILER W/WO STENT Right 2019 right common femoral [...] 2015. Status post CABG x 4 in [place] 2015. Currently stable. Continue management per PCP/cardiology. [...] 8. Nina Grigsby MD documented in this encounterSumma Health Wadsworth [facility] Center06-27-2022 History of Present illness Narrative* [...] (HCC) Peripheral arterial disease (HCC) 2019 R GARDENER stent PAST SURGICAL HISTORY: PAST SURGICAL HISTORY Procedure Laterality Date BACK SURGERY HX 2019 CABG (4) VEIN GRAFTS & ARTERIAL GRAFT(S) 2016 LOWER EXTREMITY FUR NAILER W/WO STENT Right 2019 right common femoral [...] 8. Nina Grigsby MD documented in this encounterSumma Health Wadsworth - [facility] Center06-06-2022 Miscellaneous Notes* Telephone Encounter - [...] [facility] [place] [facility] needed. documented in this encounterSumma Health Wadsworth - [facility]06-06-2022 History of Present illness Narrative* Denisse Campbell RN - 12/24/2021 11:53 AM EDT . documented in this encounterSumma Health Wadsworth - [facility]itt[facility] Center06-06-2022 History of Present illness Narrative* [...] (HCC) Peripheral arterial disease (HCC) 2019 R GARDENER stent PAST SURGICAL HISTORY: PAST SURGICAL HISTORY Procedure Laterality Date BACK SURGERY HX 2019 CABG (4) VEIN GRAFTS & ARTERIAL GRAFT(S) 2016 LOWER EXTREMITY FUR NAILER W/WO STENT Right 2019 right common femoral [...] 8. Nina Grigsby MD documented in this encounterSumma Health Wadsworth [facility]05-26-2022 Miscellaneous Notes* Telephone Encounter - Yanira Frias [facility] - 12/13/2021 1:16 PM EDT Called patient [...] ok at this time. documented in this encounterSumma Health Wadsworth - [facility]itt[facility] Center05-18-2022 Miscellaneous Notes* Telephone Encounter - [...] better than cycle 1. 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 Do you need to [...] protocol. Denita Rai RN documented in this encounterSumma Health Wadsworth - [facility]itt[facility] Center05-16-2022 History of Present illness Narrative* [...] N/A Denita Rai RN documented in this encounterSumma Health Wadsworth - [facility]itt[facility] Center05-16-2022 History of Present illness Narrative* [...] (HCC) Peripheral arterial disease (HCC) 2019 R GARDENER stent PAST SURGICAL HISTORY: PAST SURGICAL HISTORY Procedure Laterality Date BACK SURGERY HX 2019 CABG (4) VEIN GRAFTS & ARTERIAL GRAFT(S) 2016 LOWER EXTREMITY FUR NAILER W/WO STENT Right 2019 right common femoral [...] scheduled. Yusef Pandya PA-C documented in this encounterSumma Health Wadsworth - [facility]itt[facility] Center05-16-2022 Miscellaneous Notes* Telephone Encounter - Vanessa Fam [facility] - 12/03/2021 9:01 AM EDT Records faxed. * Telephone Encounter - Alexandria Spicer Sec - 11/30/2021 11:08 AM EDT Appt with PCP Dr Azul for hypotension on Friday12-07-21 1:45pm Pérez Randolph is known to Dr azul but please send most recent records including med list and Blood pressure. Dr Azul has a new fax # [phone] documented in this encounterSumma Health Wadsworth - [facility]itt[facility] Center05-13-2022 History of Present illness Narrative* Patricia Miller APRN.ACCESS LEAD - 11/30/2021 10:41 AM EDT PATIENT NAME: [...] (HCC) Peripheral arterial disease (HCC) 2019 R GARDENER stent PAST SURGICAL HISTORY: PAST SURGICAL HISTORY Procedure Laterality Date BACK SURGERY HX 2019 CABG (4) VEIN GRAFTS & ARTERIAL GRAFT(S) 2016 LOWER EXTREMITY FUR NAILER W/WO STENT Right 2019 right common femoral [...] neck CT. [facility]. Clinical evaluation most consistent [...] treatment. Patricia Miller APRN.RONAL documented in this encounterSumma Health Wadsworth - [facility]itt[facility] Center05-13-2022 Nurse Note* Pavithra Jacinto MA - 11/30/2021 10:31 AM EDT Patient states he is feeling better today, he even went out for Breakfast. Pavithra Jacinto MA documented in this encounterSumma Health Wadsworth - [facility]05-12-2022 Miscellaneous Notes* Telephone Encounter - [...] advise? Denita Rai RN documented in this encounterSumma Health Wadsworth - [facility] Center05-09-2022 History of Present illness Narrative* [...] (HCC) Peripheral arterial disease (HCC) 2019 R GARDENER stent PAST SURGICAL HISTORY: PAST SURGICAL HISTORY Procedure Laterality Date BACK SURGERY HX 2019 CABG (4) VEIN GRAFTS & ARTERIAL GRAFT(S) 2016 LOWER EXTREMITY FUR NAILER W/WO STENT Right 2019 right common femoral [...] function has improved. We will monitor closely. iNna Grigsby MD documented in this encounterSumma Health Wadsworth [facility] Center05-02-2022 Miscellaneous Notes* Telephone Encounter - [...] 2.09 Ros Navarro RN documented in this encounterSumma Health Wadsworth - [facility]itt[facility] Center05-02-2022 Miscellaneous Notes* Telephone Encounter - Denita Rai RN - 11/19/2021 11:39 AM EDT Voicemail message received from Jaclyn @ Dr Azul's office. They can see pt tomorrow @ 1030 AM. Pt notified and states that he has an appointment in [place] tomorrow. Call placed to Dr Azul's office. [...] back. Denita Rai RN documented in this encounterSumma Health Wadsworth - [facility]itt[facility] Center05-02-2022 Miscellaneous Notes* Telephone Encounter - Denita Rai RN - 11/19/2021 9:42 AM EDT DISCHARGE CALL BACK Today's date: November 19, 2021 Notified of Pt discharge by: Hospital records requested. Patient discharged on 11/18/2021 from [facility] to Home Primary Cancer Diagnosis: Lung Cancer Admitting Diagnosis: Hypertension, Acute renal failure Discharge Summary/SBAR reviewed: Yes Handoff Discussed with Transitional Federal Appellate Law Clerk: NO Psychosocial Risk Factors: None If patient [...] back. Denita Rai RN documented in this encounterSumma Health Wadsworth - [facility] Center04-29-2022 Miscellaneous Notes* Telephone Encounter - Denita Rai RN - 11/16/2021 4:41 PM EDT Pt notified and verbalizes understanding. Agrees to go to [facility] ER for eval. Report phoned to Kelli @ [facility] ER. Med list and today's labs [...] 25 mg BID as prescribed per his [facility] Group Controller. Advised he notify his assistant at surgery of his readings. Any other suggestions for him? Should he go to the ER since it is so late in the day? Denita Rai RN documented in this encounterSumma Health Wadsworth [facility] Center04-29-2022 Miscellaneous Notes* Telephone Encounter - [...] Thanks! Denita Rai RN documented in this encounterSumma Health Wadsworth - [facility]itt[facility] Center04-29-2022 History of Present illness Narrative* Vanessa Cruz RN - 11/16/2021 9:17 AM EDT Creat 2.33. Catie, nurse wound care spoke with Dr. Grigsby and to patient. Patient is to come in on Friday for repeat labs and IVF. Vanessa Cruz RN * Aurelia Bradley RN - 11/16/2021 9:05 AM EDT Pt took BP meds at about 0930, he will recheck his BP at home in 2 hours. Aurelia Bradley RN documented in this encounterSumma Health Wadsworth [facility] Center04-27-2022 Miscellaneous Notes* Telephone Encounter - [...] the treatment schedule. Thanks! documented in this encounterSumma Health Wadsworth - Rittman Medical Center04-26-2022 History of Present illness Narrative* MARGARET Finnegan - 11/13/2021 3:59 PM EDT SOCIAL WORK FOLLOW UP NOTE: [facility] Date of service:11/13/21 [place] is being seen for a follow [...] as appropriate. SUMA Finnegan documented in this encounterSumma Health Wadsworth - [facility]itt[facility] Center04-26-2022 History of Present illness Narrative* Vanessa Cruz RN - 11/13/2021 11:35 AM EDT IVF today and labs tomorrow. Vanessa Cruz RN documented in this [facility]04-25-2022 Miscellaneous Notes* Telephone Encounter - Yusef [...] labs again on 11/14. documented in this encounterSumma Health Wadsworth - [facility] Center04-22-2022 Miscellaneous Notes* Telephone Encounter - [...] protocol. Denita Rai RN documented in this encounterSumma Health Wadsworth - [facility]itt[facility] Medical Center04-18-2022 History of Present illness Narrative* Patricia Miller APRN.ACCESS LEAD - 11/05/2021 9:00 AM EDT PATIENT NAME: [...] (HCC) Peripheral arterial disease (HCC) 2019 R GARDENER stent PAST SURGICAL HISTORY: PAST SURGICAL HISTORY Procedure Laterality Date BACK SURGERY HX 2019 CABG (4) VEIN GRAFTS & ARTERIAL GRAFT(S) 2016 LOWER EXTREMITY FUR NAILER W/WO STENT Right 2019 right common femoral [...] care would be adjuvant chemotherapy with a ho-chunk doublet followed by adjuvant radiation therapy. His [...] 2015. Status post CABG x 4 in [place] 2015. Currently stable. Continue management per PCP/cardiology. [...] indicated. Patricia Miller APRN.RONAL documented in this encounterSumma Health Wadsworth - [facility] Center04-13-2022 History of Present illness Narrative* [...] 31, 2021 2:46 PM documented in this encounterSumma Health Wadsworth - [facility] Center04-12-2022 Miscellaneous Notes* Telephone Encounter - Denita Rai RN - 10/30/2021 10:33 AM EDT Spoke w/ Jaz regarding pt's MRI. Informed her that the pt is currently scheduled to have this done @ [facility] in [place]. No need to schedule w/ [facility] at this time. Informed her that the pt is aware of his [place] appointment. Denita Rai RN * Telephone Encounter - Denita Rai RN - 10/30/2021 10:22 AM EDT 3rd attempt made to contact Jaz @ [facility] Scheduling. No answer. Message left requesting call back. Denita Rai RN * Telephone Encounter - Denita Rai RN - 10/29/2021 11:27 AM EDT 2nd attempt made to contact Jaz @ [facility]. No answer. Message left requesting call back. Denita Rai RN * Telephone Encounter - Denita Rai RN - 10/26/2021 3:40 PM EDT Voicemail message received from [facility] Central Scheduling requesting to speak w/ a nurse regarding pt's MRI. Call placed to number provided. No answer. Message left requesting call back. Denita Rai RN documented in this encounterSumma Health Wadsworth [facility] Center04-12-2022 Miscellaneous Notes* Telephone Encounter - Denita Rai RN - 10/30/2021 8:59 AM EDT FYI: Pt does not wish to enroll in a trial at this time. Denita Rai RN documented in this encounterSumma Health Wadsworth [facility] Center04-11-2022 Miscellaneous Notes* Telephone Encounter - [...] Thanks! Denita Rai RN documented in this encounterSumma Health Wadsworth - [facility]itt[facility] Center04-11-2022 History of Present illness Narrative* Denita Rai RN - 10/29/2021 10:58 AM EDT Federal Appellate Law Clerk Pre Chemo Patient identified by name and date of . YES Confirmed date and time for chemotherapy ? YES Other appointments (labs, imaging) discussed? 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 [facility] Department of Pharmacy Oncology Pharmacy Medication Education [...] patient Katlin Omer RPh documented in this encounterSumma Health Wadsworth - [facility] Center04-08-2022 Miscellaneous Notes* Telephone Encounter - [...] Thanks! Denita Rai RN documented in this encounterSumma Health Wadsworth - Rittman [facility] Center04-07-2022 Miscellaneous Notes* Telephone Encounter - Denita Rai RN - 10/25/2021 8:10 AM EDT Scripts for antiemetics and folic acid pended. Please review and approve. Thanks, Denita Rai RN documented in this [facility]04-06-2022 History of Present illness Narrative* Hector Limon MD - 10/24/2021 3:02 PM EDT Radiation Oncology - New Patient/Consult Note PATIENT NAME: Cristal Gu PATIENT REQUESTING PROVIDER: Dr. Grigsby DIAGNOSIS: 66 year old male with lung cancer, left upper lobe, pleomorphic carcinoma, stage IIb [id number], stage IIB AJCC 8th edition (chest wall [...] (HCC) Peripheral arterial disease (HCC) 2019 R GARDENER stent Prior radiation therapy, collagen vascular disease, or inflammatory bowel disease: No PAST SURGICAL HISTORY Procedure Laterality Date BACK SURGERY HX 2019 CABG (4) VEIN GRAFTS & ARTERIAL GRAFT(S) 2016 LOWER EXTREMITY FUR NAILER W/WO STENT Right 2019 right common femoral [...] left upper lobe, pleomorphic carcinoma, stage IIb [id number], stage IIB AJCC 8th edition (chest wall [...] by: Hector Limon MD cc: Christina Azul [facility] [place] [address] Nina Grigsby ([facility]) [address] [place] [address] [place] [address] documented in this encounterSumma Health Wadsworth [facility] Center04-04-2022 Miscellaneous Notes* Telephone Encounter - Raine Gallegos RN - 10/22/2021 11:16 AM EDT Returned call to Mr Gu and identified self by name and title. Cristal explained that he had received a call from his [employer] company who questioned thelocation of his upcoming MRI. Cristal was a bit confused after the call and wanted to confirm that our office did not have any concerns regarding completing his MRI at [facility]. I assured Cristal that his insurance has authorized the imaging and it may be completed at any F location. He was scheduled for first available, and voiced comfort with driving to [place]. No additional questions at this time. Raine METZ, RN Specialty Federal Appellate Law Clerk * Telephone Encounter - Mary Alice Cabezas ADM - 10/19/2021 3:48 PM EDT Cristal Gu is calling Renetta Ponce MD today regarding Care Coordination, calling to discuss going to another hospital for his MRI. Patient has been identified by name and birthdate. Duration of symptoms: N/A Requesting response back: call on cell [phone] (home) [phone] (cell) Mary Alicegeorgia Matamarguerite SAMANIEGO October 19, 2021 documented in this encounterSumma Health Wadsworth [facility] Center04-01-2022 History of Present illness Narrative* Renetta Ponce MD - 10/19/2021 2:40 PM EDT Images from the original note were not included. [facility] NEW PATIENT VISIT Department of Hematology and Medical Oncology PATIENT NAME: Cristal Gu NO.: [id number] DATE OF SERVICE: 10/19/2021 PCP: Christina Azul MD REFERRING PROVIDER: Marianne Fields MD. DIAGNOSIS: Pleomorphic carcinoma of the DARCIE STAGE: [id number], stage IIB AJCC 8th edition (chest wall [...] disease, PAD s/p stenting, NSTEMI s/p CABG [id number] and alcohol use who presents to discuss [...] nodule, [facility] 2.[facility] He saw Dr. Fields from thoracic surgery and had a PET CT at [facility] which showed hypermetabolic uptake in the [...] (HCC) Peripheral arterial disease (HCC) 2019 R GARDENER stent PAST SURGICAL HISTORY: PAST SURGICAL HISTORY Procedure Laterality Date BACK SURGERY HX 2019 CABG (4) VEIN GRAFTS & ARTERIAL GRAFT(S) 2016 LOWER EXTREMITY FUR NAILER W/WO STENT Right 2019 right common femoral [...] receive therapy closer to home at the [facility] location. I will place a referral for him to see oncology at that site. All questions and concerns have been addressed. Renetta Ponce MD, FACP Associate Staff [facility] October 19, 2021 CC: Marianne Fields MD documented in this encounterSumma Health Wadsworth - [facility] Center04-01-2022 Miscellaneous Notes* Telephone Encounter - Virgie Dominguez - 01/14/2022 9:30 AM EDT Patient scheduled to see you on Friday01/22/22 for follow up treatment. Please add lab orders. ThanksVirgie MA documented in this encounterJoshua Ville [address]-01-2022 Miscellaneous Notes* Telephone Encounter - Virgie Dominguez - 01/30/2022 12:49 PM EDT Patient coming in on 02/07/22 for follow up labs. Please add lab orders. Virgie Dennis MA documented in this encounterJoshua Ville [address]-01-2022 Nurse Note* Denisse Brasher LPN - 10/19/2021 9:56 AM EDT Additional intake questions: Has the patient had fever, nausea, vomiting, diarrhea, constipation, fatigue for > 1 week? No Does the patient have a decreased appetite? No Does patient want to see a Settlement Processor? No (yes to any of above refer patient to schedulers for dietitian appointment) ) Does patient have any new or increased numbness or tingling of extremities? No Is patient interested in fertility information? No Does patient need any prescription refills? No Does patient have an advanced directive in place? No, Patient referred to [facility] Electronically Signed By: Denisse Brasher LPN documented in this encounterSumma Health Wadsworth - [facility]ittman [facility] Center03-24-2022 History of Present illness Narrative* Aracelis Carrillo APRN.ACCESS LEAD - 10/11/2021 3:22 PM EDT Images from the original note were not included. [facility] - OUTPATIENT THORACIC SURGERY CLINIC NOTE PT NAME: [facility] NO: [id number] THORACIC SURGEON: Dr Marianne Fields DATE OF [...] in-situ hybridization tests have been determined by [facility] Pathology and Laboratory Medicine Q[facility] ([facility]) in a manner consistent with CLIA requirements. One or more of these tests have not been cleared or approved by the FDA. [facility] is regulated under CLIA as qualified [...] f/u 11/20/21 - oncology consult at the [facility] in [place] Aracelis Carrillo APRN.CNP documented in this encounterSumma Health Wadsworth - Rittman [facility] Center03-24-2022 History of Present illness Narrative* [...] 11, 2021 3:11 PM documented in this encounterSumma Health Wadsworth - Rittman Medical Center11-08-2021 Procedure note* Vanessa Joaquin RT(R) [...] 0745 PATIENT DISCHARGED TO: Ambulatory patient, left [place] department area. A Diagnostic radioactive procedure has taken place, with no further precautions necessary other than routine body substance precautions. More information regarding radiation safety can be found usingthis link: [email or web address] SIGNATURE: RT Ayaz(Marcella) PATIENT NAME: Cristal Gu DATE: May 28, 2021 TIME: 8:14 AM PAGER/CONTACT #: documented in this encounterSumma Health Wadsworth - Rittman Medical CenterDischarge summary Author Jair Nichols [facility] March 20, 2024 2:40pm Note Date/Time March 20, 2024 2: 40pm [facility] ENTER [address] [place] [address] Discharge Summary Signed Patient: Cristal Gu MR#: [id number] : 1955 Acct:[id number] Age/Sex: 69 / M Adm Date: 4 Loc: Room: [address] [place] [address]: Jair Nichols MD Copies to: [...] can be found in the EHR of [facility]. The patient left hospital appropriately [...] % (Auto) 82.3, Lymph % (Auto) 8.6, Geary % (Auto) 8.7, Eos % (Auto) 0.2, Baso % (Auto) 0.2, Nucleat RBC Rel Count 0.0, Neut # (Auto) 4.8, Lymph # (Auto) 0.5 L, Geary # (Auto) 0.5, Eos # (Auto) 0.0, [...] signed by Jair Nichols MD> 03/20/24 1440 [facility] Work Phone: Evaluation note* Diagnosis Malignant neoplasm of upper lobe of left lung (HCC)- Primary documented in this encounter [facility] CenterEvalumiddlet[place] [facility] note* Diagnosis Follow-up examination following surgery Follow-up examination, following unspecified surgery documented in this encounter [facility] CenterEvalum[facility]* Diagnosis Malignant neoplasm of upper lobe of left lung (HCC) documented in this encounter [facility] CenterEval[facility] note* Diagnosis Malignant neoplasm of upper lobe of left lung (HCC)- Primary documented in this encounter [facility] CenterEvaluation note* Diagnosis Malignant neoplasm of upper lobe of left lung (HCC)- Primary [facility]* Diagnosis Malignant neoplasm of upper lobe of left lung (HCC) documented in this encounter [facility] CenterEval[facility]* Diagnosis Malignant neoplasm of upper lobe of left lung (HCC)- Primary documented in this encounter [facility]Eval[facility]* Diagnosis Malignant neoplasm of upper lobe of left lung (HCC)- Primary [facility] Malignant neoplasm of upper lobe of left lung (HCC)- Primary [facility]* Diagnosis Malignant neoplasm of upper lobe of left lung (HCC)- Primary [facility] Diagnosis Acute kidney injury (HCC)- Primary Acute kidney failure, unspecified documented [facility] encounter [facility]* Diagnosis Acute kidney injury (HCC)- Primary Acute kidney failure, unspecified Malignant neoplasm of upper lobe of left lung (HCC) documented [facility]* Diagnosis Malignant neoplasm of upper lobe of left lung (HCC)- Primary Acute kidney injury (HCC) Acute kidney failure, unspecified [facility]* Diagnosis Malignant neoplasm of upper lobe of left lung (HCC)- Primary Acute kidney injury (HCC) Acute kidney failure, unspecified documented [facility]* Diagnosis Malignant neoplasm of upper lobe of left lung (HCC)- Primary Acute kidney injury (HCC) Acute kidney failure, unspecified documented in this encounter [facility] [facility] Diagnosis Malignant neoplasm of upper lobe of left lung (HCC)- Primary Acute kidney injury (HCC) Acute kidney failure, unspecified [facility] encounter [facility] Diagnosis Malignant neoplasm of upper lobe of left lung (HCC)- Primary Acute kidney injury (HCC) Acute kidney failure, unspecified [facility] Diagnosis Malignant neoplasm of upper lobe of left lung (HCC)- Primary [facility] Diagnosis Malignant neoplasm of upper lobe of left lung (HCC)- Primary [facility] Diagnosis Malignant neoplasm of upper [...] and subcutaneous tissue [facility] Diagnosis Malignant neoplasm of upper lobe of left lung (HCC)- Primary 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 [facility] Diagnosis Chronic obstructive pulmonary disease, unspecified COPD type (HCC) Lung nodule Solitary pulmonary nodule [facility] Diagnosis Chronic obstructive pulmonary disease, unspecified COPD type (HCC) Lung nodule Solitary pulmonary nodule [facility] Diagnosis Chronic obstructive pulmonary disease, unspecified COPD type (HCC) Malignant neoplasm of upper lobe of left lung (HCC) PAD (peripheral artery disease) (HCC) Peripheral vascular disease, unspecified [facility] Diagnosis Malignant neoplasm of upper lobe of left lung (HCC) documented [facility] Diagnosis Malignant neoplasm of upper lobe of left lung (HCC)- Primary [facility] Diagnosis Malignant neoplasm of upper lobe of left lung (HCC)- Primary 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 Acute kidney injury (HCC) Acute kidney failure, unspecified Skin infection Unspecified local infection of skin and subcutaneous tissue [facility] Diagnosis Malignant neoplasm of upper lobe of left lung (HCC)- Primary 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 Acute kidney injury (HCC) Acute kidney failure, unspecified Skin infection Unspecified local infection of skin and subcutaneous tissue [facility] Diagnosis Chronic obstructive pulmonary disease, unspecified COPD type (HCC)- Primary [facility] Diagnosis Skin rash- Primary Rash and other nonspecific skin eruption [facility] Diagnosis Malignant neoplasm of upper lobe of left lung (HCC)- Primary 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 Skin infection Unspecified local infection of skin and subcutaneous tissue Rash Rash and other nonspecific skin eruption [facility] Diagnosis Malignant neoplasm of upper lobe of left lung (HCC)- Primary [facility] noteNo assessment information availableKindred Healthcare Work Phone: Evaluation note* Diagnosis Malignant neoplasm [...] condition classified elsewhere [facility] Malignant neoplasm of upper [...] Centrilobular emphysema (HCC) Other emphysema 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 Coronary atherosclerosis of knik coronary artery PVD (peripheral vascular disease) (HCC) Peripheral vascular disease, unspecified Cancer related pain Neoplasm related pain (acute) (chronic) Tonsillar mass Swelling, mass, or lump in head and neck Abnormal LFTs Other abnormal blood chemistry Anxiety Anxiety state, unspecified Hypothyroidism due to medication [facility] Diagnosis Oropharnyx cancer (HCC)- Primary [facility] Diagnosis Palliative care by specialist- Primary 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) Cancer related pain Neoplasm related pain (acute) (chronic) Opioid contract exists Encounters for other specified administrative purpose 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 due to medical condition classified elsewhere Anorexia Protein-calorie malnutrition, unspecified severity (HCC) Nausea Nausea alone [facility] Diagnosis 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 Tonsillar mass Swelling, mass, or lump in head and neck Primary hypertension Unspecified essential hypertension Centrilobular emphysema (HCC) Other emphysema Coronary artery disease involving knik coronary artery of knik heart without angina pectoris Hypothyroidism due to medication Cancer related pain Neoplasm related pain (acute) (chronic) [facility]* Diagnosis 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 Tonsillar mass Swelling, mass, or lump in head and neck Hypothyroidism due to medication Centrilobular emphysema (HCC) Other emphysema 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) documented [facility]* Diagnosis 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 Tonsillar mass Swelling, mass, or lump in head and neck 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) [facility] Diagnosis 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) [facility] Diagnosis 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 due to medical condition classified elsewhere Anorexia documented [facility]* Diagnosis Neoplasm related pain- Primary Neoplasm related pain (acute) (chronic) documented [facility] Diagnosis Primary malignant neoplasm of left [...] Loss of weight [facility] Diagnosis Primary malignant neoplasm of [...] (acute) (chronic) [facility] Diagnosis Primary malignant neoplasm of left [...] pain (acute) (chronic) documented [facility]* Diagnosis Left arm swelling- Primary Swelling of limb Cyanosis of tip of finger Cyanosis [facility] Diagnosis 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) [facility] Diagnosis Malignant neoplasm of upper lobe of left lung (HCC)- Primary [facility] Diagnosis 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) [facility] Diagnosis Abnormal CT scan, neck- Primary Other nonspecific (abnormal) findings on radiological and other examinations of body structure Sore throat Acute pharyngitis [facility]* Diagnosis Centrilobular emphysema (HCC)- Primary Other emphysema Malignant neoplasm of upper lobe of left lung (HCC) Coronary artery disease involving knik coronary artery of knik heart without angina pectoris PAD (peripheral artery [...] of left lung acute Unsteady gait acute [facility] Work Phone: Evaluation note* Diagnosis 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 Swelling of arm Swelling of limb 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) [facility] Diagnosis Primary malignant neoplasm of [...] or lung (HCC) [facility] Diagnosis Lung nodules Other nonspecific abnormal finding of lung field documented in this [facility]* Diagnosis Malignant neoplasm of upper lobe of left lung (HCC) documented [facility] this [facility] Diagnosis Malignant neoplasm of unspecified part of unspecified bronchus or lung (HCC) documented [facility] this [facility]* Diagnosis 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 due to medical condition classified elsewhere Anxiety about health [facility] Additional Instructions Please follow-up with Dr. Grigsby's office call tomorrow let them know that you were seen in the emergency department Please return here if you develop any chest pain, shortness of breath, numbness, tingling or any other concernsKindred Healthcare Work Phone: Hospital Discharge instructions Additional Instructions If your symptoms return/worsen or you develop any further concerns or symptoms please see your doctor or return to the emergency department immediately. As we discussed admission for further management is recommended but you will follow-up with your oncologist and your PCP. You may return to the emergency department should you change her mind.[facility] Work Phone: Hospital Discharge instructions Additional Instructions Call [facility] Scheduling on Friday at [phone] to schedule outpatient Brain MRI. The MRI may require prior authorization through your insurance before it can be scheduled, central scheduling will assist with this if it is needed.[facility] Work Phone: Reason for referral (narrative)* Diagnostic Procedure Only (Routine) - Pending Review Specialty Diagnoses / Procedures Referred By Contac t Referred To Contact MOLECULAR & FUNCTIONAL IMAGING Diagnoses Malignant neoplasm of unspecified part of unspecified bronchus or lung (HCC) Procedures NM BONE WHOLE BODY BONE &/JOINT IMAGING WHOLE BODY Hector Limon MD [address] [place] [address] [place] [address] Molecular & Functional Imaging [address] [place] [address] Referral ID Status Reason Start Date Expiration Date Visits Requested Visits Authorized [id number] Pending Review Auto-Generat ed Referral 04/08/2022 05/08/2023 1 1 [facility] for referral (narrative)* Diagnostic Procedure Only (Routine) - Authorized Specialty Diagnoses / Procedures Referred By Contac t Referred To Contact MOLECULAR & FUNCTIONAL IMAGING Diagnoses Lung nodules Procedures NM PET/CT SKULL-THIGH SUBSEQUENT PET IMAGING CT ATTENUATION SKULL BASE MID-THIGH Nina Grigsby MD [address] [place] [address] [place] [address] Molecular & Functional Imaging [address] [place] [address] Referral ID Status Reason Start Date Expiration Date Visits Requested Visits Authorized [id number] Authorized Auto-Generat ed Referral 09/23/2022 10/23/2023 1 1 [facility] for referral (narrative)* Diagnostic Procedure Only (Urgent) - Closed Specialty Diagnoses / Procedures Referred By Contac t Referred To Contact MOLECULAR & FUNCTIONAL IMAGING Diagnoses Malignant neoplasm of unspecified part of unspecified bronchus or lung (HCC) Procedures NM PET/CT WHOLE BODY INITIAL TUMOR IMAG PET W/CONCURNT CT-WHOLE BODY Marianne Fields MD [address] [facility] [address] [place] [address] Molecular & Functional Imaging [address] [place] [address] Referral ID Status Reason Start Date Expiration Date V isits Requested Visits Authorized [id number] Closed Clearance Not Met - Admin/Chairm an/Director Advise to Postpone/Res chedule or Not Proceed 05/14/2021 06/13/2021 2 2 [facility] for referral (narrative)* Diagnostic Procedure Only (Routine) - Authorized Specialty Diagnoses / Procedures [facility] Referred To Contact MOLECULAR & FUNCTIONAL IMAGING Diagnoses 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) Procedures NM PET/CT SKULL-THIGH SUBSEQUENT PET IMAGING CT ATTENUATION SKULL BASE MID-THIGH Nina Grigsby MD [address] [place] [address] [place] [address] Molecular & Functional Imaging [address] [place] [address] Referral ID Status Reason Start Date Expiration Date Visits Requested Visits Authorized [id number] Authorized Auto-Generat ed Referral 08/25/2023 09/23/2024 1 1 [facility] for referral (narrative)* Diagnostic Procedure Only (Routine) - Authorized Specialty Diagnoses / Procedures Referred By Contac t Referred To Contact MOLECULAR & FUNCTIONAL IMAGING Diagnoses 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) Procedures NM PET/CT SKULL-THIGH SUBSEQUENT PET IMAGING CT ATTENUATION SKULL BASE MID-THIGH Nina Grigsby MD [address] [place] [address] [place] [address] Molecular & Functional Imaging [address] [place] [address] Referral ID Status Reason Start Date Expiration Date Visits Requested Visits Authorized [id number] Authorized Auto-Generat ed Referral 11/04/2023 12/03/2024 1 1 [facility] for referral (narrative)* Diagnostic Procedure Only (Routine) - Authorized Specialty Diagnoses / Procedures Referred By Contac t Referred To Contact MOLECULAR & FUNCTIONAL IMAGING Diagnoses 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 Swelling of arm Cancer associated pain Procedures NM PET/CT SKULL-THIGH SUBSEQUENT PET IMAGING CT ATTENUATION SKULL BASE MID-THIGH Yusef Pandya PA-C [address] [place] [address] [place] [address] Molecular & Functional Imaging [address] [place] [address] Referral ID Status Reason Start Date Expiration Date Visits Requested Visits Authorized [id number] Authorized Auto-Generat ed Referral 02/03/2024 03/04/2025 1 1 * Diagnostic Procedure Only (Urgent) - New Request Specialty Diagnoses / Procedures Referred By Contac t Referred To Contact US IMAGING Diagnoses 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) Swelling of arm Procedures US DVT UPPER LEFT DUP-SCAN XTR VEINS UNILATERAL/LIMITED STUDY Yusef Pandya PA-C [address] [place] [address] [place] [address] [place] [address] Referral ID Status Reason Start Date Expiration Date Visits Requested Visits Authorized [id number] New Request Auto-Generat ed Referral 02/03/2024 03/04/2025 1 1 [facility] for referral (narrative)* Outpatient Procedure (Routine) - Authorized Specialty Diagnoses / Procedures Referred By Contac t Referred To [facility] Diagnoses Centrilobular emphysema (HCC) Dyspnea on exertion Procedures LUNG DIFFUSION CAPACITY (DLCO) DIFFUSING CAPACITY [place]ary Lucas [place] [id number] [place] [address] [address] Referral ID Status Reason Start Date Expiration Date Visits Requested Visits Authorized [id number] Authorized Auto-Generat ed Referral 03/15/2024 04/14/2025 1 1 * Outpatient Procedure (Routine) - Authorized Specialty Diagnoses / Procedures Referred By Contac t Referred To Contact [facility] [place] Diagnoses Centrilobular emphysema (HCC) Dyspnea on exertion Procedures SPIROMETRY WITH DILATOR IF OBSTRUCTED BRNCDILAT RSPSE SPMTRY PRE&[place] [address] [place] [address] [address] Referral ID Status Reason Start Date Expiration Date Visits Requested Visits Authorized [id number] Authorized Auto-Generat ed Referral 03/15/2024 04/14/2025 1 1 T [facility] for referral (narrative)* Diagnostic Procedure Only (Routine) - Closed Specialty Diagnoses / Procedures Referred By Contac t Referred To Contact MOLECULAR & FUNCTIONAL IMAGING Diagnoses 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 Swelling of arm Cancer associated pain Procedures NM PET/CT SKULL-THIGH SUBSEQUENT PET IMAGING CT ATTENUATION SKULL BASE MID-THIGH Yusef Pandya PA-C [address] [place] [address] [place] [address] Molecular & Functional Imaging [address] [place] [address] Referral ID Status Reason Start Date Expiration Date V isits Requested Visits Authorized [id number] Closed Auto-Generate d Referral 02/03/2024 03/04/2025 1 1 T [facility] for referral (narrative)* Diagnostic Procedure Only (Routine) - Closed Specialty Diagnoses / Procedures Referred By Contac t Referred To Contact MOLECULAR & FUNCTIONAL IMAGING Diagnoses 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) Procedures NM PET/CT SKULL-THIGH SUBSEQUENT PET IMAGING CT ATTENUATION SKULL BASE MID-THIGH Nina Grigsby MD [address] [place] [address] [place] [address] Molecular & Functional Imaging [address] [place] [address] Referral ID Status Reason Start Date Expiration Date V isits Requested Visits Authorized [id number] Closed Auto-Generate d Referral 11/04/2023 12/03/2024 1 1 [facility] for referral (narrative)* Diagnostic Procedure Only (Routine) - Closed Specialty Diagnoses / Procedures Referred By Contac t Referred To Contact MOLECULAR & FUNCTIONAL IMAGING Diagnoses 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) Procedures NM PET/CT SKULL-THIGH SUBSEQUENT PET IMAGING CT ATTENUATION SKULL BASE MID-THIGH Nina Grigsby MD [address] [facility] [place] [address] Molecular & Functional Imaging [address] [place] [address] Referral ID Status Reason Start Date Expiration Date V isits Requested Visits Authorized [id number] Closed Auto-Generate d Referral 08/25/2023 09/23/2024 1 1 [facility] for referral (narrative)* Diagnostic Procedure Only (Routine) - Closed Specialty Diagnoses / Procedures Referred By Contac t Referred To Contact MOLECULAR & FUNCTIONAL IMAGING Diagnoses 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) Procedures NM PET/CT SKULL-THIGH SUBSEQUENT PET IMAGING CT ATTENUATION SKULL BASE MID-THIGH Nina Grigsby MD [address] [place] [address] [place] [address] Molecular & Functional Imaging [address] [place] [address] Referral ID Status Reason Start Date Expiration Date V isits Requested Visits Authorized [id number] Closed Auto-Generate d Referral 04/22/2023 05/21/2024 1 1 [facility] for referral (narrative)* Diagnostic Procedure Only (Routine) - Closed Specialty Diagnoses / Procedures Referred By Contac t Referred To Contact MOLECULAR & FUNCTIONAL IMAGING Diagnoses Malignant neoplasm of unspecified part of unspecified bronchus or lung (HCC) Procedures NM PET/CT SKULL-THIGH SUBSEQUENT PET IMAGING CT ATTENUATION SKULL BASE MID-THIGH Patricia Miller, DRAWING IN MACHINE TENDER HELPER.ACCESS LEAD [address] [facility] [place] [address] Molecular & Functional Imaging [address] [place] [address] Referral ID Status Reason Start Date Expiration Date V isits Requested Visits Authorized [id number] Closed Auto-Generate d Referral 01/07/2023 02/06/2024 1 1 [facility] for referral (narrative)* Diagnostic Procedure Only (Routine) - Closed Specialty Diagnoses / Procedures Referred By Contac t Referred To Contact MOLECULAR & FUNCTIONAL IMAGING Diagnoses Lung nodules Procedures NM PET/CT SKULL-THIGH SUBSEQUENT PET IMAGING CT ATTENUATION SKULL BASE MID-THIGH Nina Grigsby MD [address] [place] [address] [place] [address] Molecular & Functional Imaging [address] [place] [address] Referral ID Status Reason Start Date Expiration Date V isits Requested Visits Authorized [id number] Closed Auto-Generate d Referral 09/23/2022 10/23/2023 1 1 [facility] for visit Narrative* Diagnostic Procedure Only (Urgent) - Closed Specialty Diagnoses / Procedures Referred By Contac t Referred To Contact MOLECULAR & FUNCTIONAL IMAGING Diagnoses Malignant neoplasm of unspecified part of unspecified bronchus or lung (HCC) Procedures NM PET/CT WHOLE BODY INITIAL TUMOR IMAG PET W/CONCURNT CT-WHOLE BODY Marianne Fields MD [address] [facility] [address] [place] [address] Molecular & Functional Imaging [address] [place] [address] Referral ID Status Reason Start Date Expiration Date V isits Requested Visits Authorized [id number] Closed Clearance Not Met - Admin/Chairm an/Director Advise to Postpone/Res chedule or Not Proceed 05/14/2021 06/13/2021 2 2 [facility] Summary Purpose Family History Relationship Condition Age at Onset Recorded Date/T jackeline father Heart problem Unknown Malignant neoplasm of lung Unknown Advance Directives Documents on File Type Date Recorded Patient Clinical Administrator Expl anation Advance Directive(s) 09/03/2021 12:55 PM Advance Directive(s) 07/10/2021 11:36 AM Documents on File Type Date Recorded Patient Clinical Administrator Expl anation Advance Directive(s) 09/03/2021 12:55 PM Advance Directive(s) 07/10/2021 11:36 AM Advance Directive Response Recorded Date/ Time Advance Directives No May 11:17am Reason for Referral Specialty Diagnoses / Procedures Referred By Contac t Referred To Contact Oncology Diagnoses Malignant neoplasm of upper lobe of left lung (HCC) Procedures CONSULT TO ONCOLOGY OFFICE/OUTPATIENT [facility] 60-74 MINUTES Aracelis Carrillo, DRAWING IN MACHINE TENDER HELPER.ACCESS LEAD [address] [place], [place] [id number] Referral ID Status Reason Start Date Expiration Date Visits Requested Visits Authorized [id number] Authorized PCP Requested Referral 10/11/2021 10/11/2022 1 1 Specialty Diagnoses / Procedures Referred By Contac t Referred To Contact Oncology Diagnoses Malignant neoplasm of upper lobe of left lung (HCC) Procedures CONSULT TO ONCOLOGY OFFICE/OUTPATIENT [facility] 60-74 MINUTES Renetta Ponce MD [address] [place] [address] Referral ID Status Reason Start Date Expiration Date V isits Requested Visits Authorized [id number] Closed PCP Requested Referral 10/26/2021 10/19/2022 1 1 Specialty Diagnoses / Procedures Referred By Contac t Referred To Contact MR IMAGING Diagnoses Malignant neoplasm of upper lobe of left lung (HCC) Procedures MRI BRAIN WO/W IVCON MRI BRAIN BRAIN STEM W/O W/CONTRAST MATERIAL Renetta Ponce MD [address] [place] [address] Mr Imaging Referral ID Status Reason Start Date Expiration Date Visits Requested Visits Authorized [id number] Authorized Auto-Generat ed Referral 10/26/2021 11/18/2021 1 1 Specialty Diagnoses / Procedures Referred By Contac t Referred To Contact Dermatology Diagnoses Skin rash Procedures CONSULT TO DERMATOLOGY OFFICE/OUTPATIENT [facility] 60-74 MINUTES Patricia Miller, DRAWING IN MACHINE TENDER HELPER.ACCESS LE[employer] [address] [place] [address] [place] [address] Referral ID Status Reason Start Date Expiration Date Visits Requested Visits Authorized [id number] Authorized PCP Requested Referral 02/26/2022 02/26/2023 1 1 Specialty Diagnoses / Procedures Referred By Contac t Referred To Contact CT IMAGING Diagnoses Malignant neoplasm of unspecified part of unspecified bronchus or lung (HCC) Procedures CT CHEST W IVCON DIAGNOSTIC COMPUTED TOMOGRAPHY THORAX W/CONTRAST Hector Limon MD [address] [place] [address] [place] [address] Ct Imaging Referral ID Status Reason Start Date Expiration Date V isits Requested Visits Authorized [id number] Closed Auto-Generate d Referral 06/11/2022 07/11/2023 1 1 Specialty Diagnoses / Procedures Referred By Contac t Referred To Contact CT IMAGING Diagnoses Malignant neoplasm of unspecified part of unspecified bronchus or lung (HCC) Procedures CT CHEST W IVCON DIAGNOSTIC COMPUTED TOMOGRAPHY THORAX W/CONTRAST Nina Grigsby MD [address] [place] [address] [place] [address] Ct Imaging Referral ID Status Reason Start Date Expiration Date Visits Requested Visits Authorized [id number] Pending Review Auto-Generat ed Referral 08/20/2022 09/19/2023 1 1 Specialty Diagnoses / Procedures Referred By Contac t Referred To Contact CT IMAGING Diagnoses Malignant neoplasm of upper lobe of left lung (HCC) Procedures CT ABD/PEL W IVCON CT ABD & PELVIS W/CONTRAST Nina Grigsby MD [address] [place] [address] [place] [address] Ct Imaging Referral ID Status Reason Start Date Expiration Date Visits Requested Visits Authorized [id number] Pending Review Auto-Generat ed Referral 08/20/2022 09/19/2023 1 1 Specialty Diagnoses / Procedures Referred By Contac t Referred To Contact Diagnoses Malignant neoplasm of unspecified part of unspecified bronchus or lung (HCC) Procedures CT SIM PLANNING RADIATION ONCOLOGY THER RAD SIMULAJ-AIDED FIELD SETTING COMPLEX Hector Limon MD [address] [place] [address] [place] [address] Referral ID Status Reason Start Date Expiration Date Visits Requested Visits Authorized [id number] Pending Review PCP Requested Referral 10/21/2022 01/19/2023 1 1 Specialty Diagnoses / Procedures Referred By Contac t Referred To Contact Diagnoses 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) Cancer related pain Procedures CONSULT TO PALLIATIVE CARE OFFICE/OUTPATIENT [facility] 60-74 MINUTES Patricia Miller, DRAWING IN MACHINE TENDER HELPER.ACCESS LEAD [address] [place] [address] Referral ID Status Reason Start Date Expiration Date Visits Requested Visits Authorized [id number] Authorized PCP Requested Referral 3 05/14/2024 1 1 Specialty Diagnoses / Procedures Referred By Contac t Referred To Contact MR IMAGING Diagnoses Malignant neoplasm of upper lobe of left lung (HCC) Procedures MRI BRAIN WO/W IVCON MRI BRAIN BRAIN STEM W/O W/CONTRAST MATERIAL Renetta Ponce MD [address] [place] [address] Mr Imaging [facility]95 Referral ID Status Reason Start Date Expiration Date V isits Requested Visits Authorized [id number] Closed Auto-Generate d Referral 10/26/2021 11/18/2021 1 1 Specialty Diagnoses / Procedures Referred By Contac t Referred To Contact Diagnoses Oropharnyx cancer (HCC) Procedures CT SIM PLANNING RADIATION ONCOLOGY THER RAD SIMULAJ-AIDED FIELD SETTING COMPLEX Hector Limon MD [address] [place] [address] Referral ID Status Reason Start Date Expiration Date Visits Requested Visits Authorized [id number] Pending Review PCP Requested Referral 3 09/08/2023 1 1 Specialty Diagnoses / Procedures Referred By Contac t Referred To Contact CT IMAGING Diagnoses 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) Procedures CT CHEST W IVCON DIAGNOSTIC COMPUTED TOMOGRAPHY THORAX W/CONTRAST Nina Grigsby MD [address] [place] [address] Ct Imaging [facility]95 Referral ID Status Reason Start Date Expiration Date V isits Requested Visits Authorized [id number] Closed Auto-Generate d Referral 10/20/2023 11/18/2024 1 1 Specialty Diagnoses / Procedures Referred By Contac t Referred To Contact [facility] Diagnoses Chronic left shoulder pain Procedures CONSULT TO PHYSICAL THERAPY PHYSICAL THERAPY EVALUATION [facility] 45 MINS Estella Fish, DRAWING IN MACHINE TENDER HELPER.ACCESS LEAD [address] [place] [address] [facility] [address] [place] [address] Referral ID Status Reason Start Date Expiration Date Visits Requested Visits Authorized [id number] Pending Review Auto-Generat ed Referral 11/21/2023 11/20/2024 [...] plus sim IMRT Hector Limon MD [address] [place] [address] Paul Mendez [address] [place] [place] [address] Referral ID Status Reason Start Date Expiration Date Visits Requested Visits Authorized [id number] Authorized PCP Requested Referral 12/03/2023 06/03/2024 16 16 Specialty Diagnoses / Procedures Referred By Contac t Referred To Contact Vascular Surgery Diagnoses Left arm swelling Cyanosis of tip of finger Procedures CONSULT TO VASCULAR SURGERY OFFICE/OUTPATIENT [facility] 60 MINUTES Yusef Pandya PA-C [address] [place] [address] Referral ID Status Reason Start Date Expiration Date Visits Requested Visits Authorized [id number] Authorized PCP Requested Referral 02/04/2024 02/03/2025 1 1 Specialty Diagnoses / Procedures Referred By Contac t Referred To Contact Ent - Otolaryngology Diagnoses Abnormal CT scan, neck Sore throat Procedures CONSULT TO ENT OFFICE/OUTPATIENT [facility] 60 MINUTES Yusef Pandya PA-C [address] [facility] [place] [address] Referral ID Status Reason Start Date Expiration Date Visits Requested Visits Authorized [id number] Authorized PCP Requested Referral 02/24/2024 02/23/2025 1 1 Specialty Diagnoses / Procedures Referred By Contac t Referred To Contact MR IMAGING Diagnoses 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) Procedures MRI BRAIN WO/W IVCON MRI BRAIN BRAIN STEM W/O W/CONTRAST MATERIAL Nina Grigsby MD [address] [place] [address] [address] [place], [facility] [place] [address] Referral ID Status Reason Start Date Expiration Date Visits Requested Visits Authorized [id number] New Request Auto-Generat ed Referral 03/23/2024 04/22/2025 1 1 Specialty Diagnoses / Procedures Referred By Contac t Referred To Contact CT IMAGING Diagnoses Malignant neoplasm of unspecified part of unspecified bronchus or lung (HCC) Procedures CT CHEST W IVCON DIAGNOSTIC COMPUTED TOMOGRAPHY THORAX W/CONTRAST Nina Grigsby MD [address] [place] [address] [address] [place], [facility] Ct Imaging [facility]95 Referral ID Status Reason Start Date Expiration Date V isits Requested Visits Authorized [id number] Closed Auto-Generate d Referral 08/20/2022 09/19/2023 1 1 Specialty Diagnoses / Procedures Referred By Contac t Referred To Contact CT IMAGING Diagnoses Malignant neoplasm of upper lobe of left lung (HCC) Procedures CT ABD/PEL W IVCON CT ABD & PELVIS W/CONTRAST Nina Grigsby MD [address] [place] [address] DR [place], [facility] Ct Imaging [facility]95 Referral ID Status Reason Start Date Expiration Date V isits Requested Visits Authorized [id number] Closed Auto-Generate d Referral 08/20/2022 09/19/2023 1 1 Specialty Diagnoses / Procedures Referred By Contac t Referred To Contact CT IMAGING Diagnoses Malignant neoplasm of unspecified part of unspecified bronchus or lung (HCC) Procedures CT CHEST W IVCON DIAGNOSTIC COMPUTED TOMOGRAPHY THORAX W/CONTRAST Hector Limon MD [address] [place] [address] [place] [address] Ct Imaging [facility] Medications Administered Section Inactive Administered Medications - [...] and content) DATE CREATED AUTHOR 02/22/2020 [facility] DATE CREATED AUTHOR AUTHOR'S ORGANIZ ATION 10/14/2022 [facility] DATE CREATED AUTHOR AUTHOR'S ORGANIZ ATION 10/25/2022 [facility] DATE CREATED AUTHOR AUTHOR'S ORGANIZ ATION 01/18/2023 [facility] DATE CREATED AUTHOR AUTHOR'S ORGANIZ ATION 04/07/2024 [facility] DATE CREATED AUTHOR AUTHOR'S ORGANIZ ATION 04/09/2024 [facility] DATE CREATED AUTHOR AUTHOR'S ORGANIZ ATION 04/20/2024 [facility] Source Comments (unrecognize d section and content) In the event this informatio n is protected by the Federal Confidentiality of Alcohol and Drug Abuse Patient Records regulations: The Federal rules restrict any use of the information to criminally investigate or prosecute any alcohol or drug abuse patient.[facility] the event this information is protected by the Federal Confidentiality of Alcohol and Drug Abuse Patient Records regulations: The Federal rules restrict any use of the information to criminally investigate or prosecute any alcohol or drug abuse patient.[facility] the event this information is protected by the Federal Confidentiality of Alcohol and Drug Abuse Patient Records regulations: The Federal rules restrict any use of the information to criminally investigate or prosecute any alcohol or drug abuse patient.[facility] CenterIn the event this information is protected by the Federal Confidentiality of Alcohol and Drug Abuse Patient Records regulations: The Federal rules restrict any use of the information to criminally investigate or prosecute any alcohol or drug abuse patient.[facility] CenterIn the event this information is protected by the Federal Confidentiality of Alcohol and Drug Abuse Patient Records regulations: The Federal rules restrict any use of the information to criminally investigate or prosecute any alcohol or drug abuse patient.[facility] CenterIn the event this information is protected by the Federal Confidentiality of Alcohol and Drug Abuse Patient Records regulations: The Federal rules restrict any use of the information to criminally investigate or prosecute any alcohol or drug abuse patient.[facility] CenterIn the event this information is protected by the Federal Confidentiality of Alcohol and Drug Abuse Patient Records regulations: The Federal rules restrict any use of the information to criminally investigate or prosecute any alcohol or drug abuse patient.[facility] CenterIn the event this information is protected by the Federal Confidentiality of Alcohol and Drug Abuse Patient Records regulations: The Federal rules restrict any use of the information to criminally investigate or prosecute any alcohol or drug abuse patient.[facility] CenterIn the event this information is protected by the Federal Confidentiality of Alcohol and Drug Abuse Patient Records regulations: The Federal rules restrict any use of the information to criminally investigate or prosecute any alcohol or drug abuse patient.[facility] CenterIn the event this information is protected by the Federal Confidentiality of Alcohol and Drug Abuse Patient Records regulations: The Federal rules restrict any use of the information to criminally investigate or prosecute any alcohol or drug abuse patient.[facility] CenterIn the event this information is protected by the Federal Confidentiality of Alcohol and Drug Abuse Patient Records regulations: The Federal rules restrict any use of the information to criminally investigate or prosecute any alcohol or drug abuse patient.[facility] CenterIn the event this information is protected by the Federal Confidentiality of Alcohol and Drug Abuse Patient Records regulations: The Federal rules restrict any use of the information to criminally investigate or prosecute any alcohol or drug abuse patient.[facility] CenterIn the event this information is protected by the Federal Confidentiality of Alcohol and Drug Abuse Patient Records regulations: The Federal rules restrict any use of the information to criminally investigate or prosecute any alcohol or drug abuse patient.[facility] CenterIn the event this information is protected by the Federal Confidentiality of Alcohol and Drug Abuse Patient Records regulations: The Federal rules restrict any use of the information to criminally investigate or prosecute any alcohol or drug abuse patient.[facility] CenterIn the event this information is protected by the Federal Confidentiality of Alcohol and Drug Abuse Patient Records regulations: The Federal rules restrict any use of the information to criminally investigate or prosecute any alcohol or drug abuse patient.[facility] CenterIn the event this information is protected by the Federal Confidentiality of Alcohol and Drug Abuse Patient Records regulations: The Federal rules restrict any use of the information to criminally investigate or prosecute any alcohol or drug abuse patient.[facility] CenterIn the event this information is protected by the Federal Confidentiality of Alcohol and Drug Abuse Patient Records regulations: The Federal rules restrict any use of the information to criminally investigate or prosecute any alcohol or drug abuse patient.[facility] CenterIn the event this information is protected by the Federal Confidentiality of Alcohol and Drug Abuse Patient Records regulations: The Federal rules restrict any use of the information to criminally investigate or prosecute any alcohol or drug abuse patient.[facility] CenterIn the event this information is protected by the Federal Confidentiality of Alcohol and Drug Abuse Patient Records regulations: The Federal rules restrict any use of the information to criminally investigate or prosecute any alcohol or drug abuse patient.[facility] CenterIn the event this information is protected by the Federal Confidentiality of Alcohol and Drug Abuse Patient Records regulations: The Federal rules restrict any use of the information to criminally investigate or prosecute any alcohol or drug abuse patient.[facility] CenterIn the event this information is protected by the Federal Confidentiality of Alcohol and Drug Abuse Patient Records regulations: The Federal rules restrict any use of the information to criminally investigate or prosecute any alcohol or drug abuse patient.[facility] CenterIn the event this information is protected by the Federal Confidentiality of Alcohol and Drug Abuse Patient Records regulations: The Federal rules restrict any use of the information to criminally investigate or prosecute any alcohol or drug abuse patient.[facility] CenterIn the event this information is protected by the Federal Confidentiality of Alcohol and Drug Abuse Patient Records regulations: The Federal rules restrict any use of the information to criminally investigate or prosecute any alcohol or drug abuse patient.[facility] CenterIn the event this information is protected by the Federal Confidentiality of Alcohol and Drug Abuse Patient Records regulations: The Federal rules restrict any use of the information to criminally investigate or prosecute any alcohol or drug abuse patient.[facility] CenterIn the event this information is protected by the Federal Confidentiality of Alcohol and Drug Abuse Patient Records regulations: The Federal rules restrict any use of the information to criminally investigate or prosecute any alcohol or drug abuse patient.[facility] CenterIn the event this information is protected by the Federal Confidentiality of Alcohol and Drug Abuse Patient Records regulations: The Federal rules restrict any use of the information to criminally investigate or prosecute any alcohol or drug abuse patient.[facility] CenterIn the event this information is protected by the Federal Confidentiality of Alcohol and Drug Abuse Patient Records regulations: The Federal rules restrict any use of the information to criminally investigate or prosecute any alcohol or drug abuse patient.[facility] CenterIn the event this information is protected by the Federal Confidentiality of Alcohol and Drug Abuse Patient Records regulations: The Federal rules restrict any use of the information to criminally investigate or prosecute any alcohol or drug abuse patient.[facility] CenterIn the event this information is protected by the Federal Confidentiality of Alcohol and Drug Abuse Patient Records regulations: The Federal rules restrict any use of the information to criminally investigate or prosecute any alcohol or drug abuse patient.[facility] CenterIn the event this information is protected by the Federal Confidentiality of Alcohol and Drug Abuse Patient Records regulations: The Federal rules restrict any use of the information to criminally investigate or prosecute any alcohol or drug abuse patient.[facility] CenterIn the event this information is protected by the Federal Confidentiality of Alcohol and Drug Abuse Patient Records regulations: The Federal rules restrict any use of the information to criminally investigate or prosecute any alcohol or drug abuse patient.[facility] CenterIn the event this information is protected by the Federal Confidentiality of Alcohol and Drug Abuse Patient Records regulations: The Federal rules restrict any use of the information to criminally investigate or prosecute any alcohol or drug abuse patient.[facility] CenterIn the event this information is protected by the Federal Confidentiality of Alcohol and Drug Abuse Patient Records regulations: The Federal rules restrict any use of the information to criminally investigate or prosecute any alcohol or drug abuse patient.[facility] CenterIn the event this information is protected by the Federal Confidentiality of Alcohol and Drug Abuse Patient Records regulations: The Federal rules restrict any use of the information to criminally investigate or prosecute any alcohol or drug abuse patient.[facility] CenterIn the event this information is protected by the Federal Confidentiality of Alcohol and Drug Abuse Patient Records regulations: The Federal rules restrict any use of the information to criminally investigate or prosecute any alcohol or drug abuse patient.[facility] CenterIn the event this information is protected by the Federal Confidentiality of Alcohol and Drug Abuse Patient Records regulations: The Federal rules restrict any use of the information to criminally investigate or prosecute any alcohol or drug abuse patient.[facility] CenterIn the event this information is protected by the Federal Confidentiality of Alcohol and Drug Abuse Patient Records regulations: The Federal rules restrict any use of the information to criminally investigate or prosecute any alcohol or drug abuse patient.[facility] CenterIn the event this information is protected by the Federal Confidentiality of Alcohol and Drug Abuse Patient Records regulations: The Federal rules restrict any use of the information to criminally investigate or prosecute any alcohol or drug abuse patient.[facility] CenterIn the event this information is protected by the Federal Confidentiality of Alcohol and Drug Abuse Patient Records regulations: The Federal rules restrict any use of the information to criminally investigate or prosecute any alcohol or drug abuse patient.[facility] CenterIn the event this information is protected by the Federal Confidentiality of Alcohol and Drug Abuse Patient Records regulations: The Federal rules restrict any use of the information to criminally investigate or prosecute any alcohol or drug abuse patient.[facility] CenterIn the event this information is protected by the Federal Confidentiality of Alcohol and Drug Abuse Patient Records regulations: The Federal rules restrict any use of the information to criminally investigate or prosecute any alcohol or drug abuse patient.[facility] CenterIn the event this information is protected by the Federal Confidentiality of Alcohol and Drug Abuse Patient Records regulations: The Federal rules restrict any use of the information to criminally investigate or prosecute any alcohol or drug abuse patient.[facility] CenterIn the event this information is protected by the Federal Confidentiality of Alcohol and Drug Abuse Patient Records regulations: The Federal rules restrict any use of the information to criminally investigate or prosecute any alcohol or drug abuse patient.[facility] CenterIn the event this information is protected by the Federal Confidentiality of Alcohol and Drug Abuse Patient Records regulations: The Federal rules restrict any use of the information to criminally investigate or prosecute any alcohol or drug abuse patient.[facility] CenterIn the event this information is protected by the Federal Confidentiality of Alcohol and Drug Abuse Patient Records regulations: The Federal rules restrict any use of the information to criminally investigate or prosecute any alcohol or drug abuse patient.[facility] CenterIn the event this information is protected by the Federal Confidentiality of Alcohol and Drug Abuse Patient Records regulations: The Federal rules restrict any use of the information to criminally investigate or prosecute any alcohol or drug abuse patient.[facility] CenterIn the event this information is protected by the Federal Confidentiality of Alcohol and Drug Abuse Patient Records regulations: The Federal rules restrict any use of the information to criminally investigate or prosecute any alcohol or drug abuse patient.[facility] CenterIn the event this information is protected by the Federal Confidentiality of Alcohol and Drug Abuse Patient Records regulations: The Federal rules restrict any use of the information to criminally investigate or prosecute any alcohol or drug abuse patient.[facility] CenterIn the event this information is protected by the Federal Confidentiality of Alcohol and Drug Abuse Patient Records regulations: The Federal rules restrict any use of the information to criminally investigate or prosecute any alcohol or drug abuse patient.[facility] CenterIn the event this information is protected by the Federal Confidentiality of Alcohol and Drug Abuse Patient Records regulations: The Federal rules restrict any use of the information to criminally investigate or prosecute any alcohol or drug abuse patient.[facility] CenterIn the event this information is protected by the Federal Confidentiality of Alcohol and Drug Abuse Patient Records regulations: The Federal rules restrict any use of the information to criminally investigate or prosecute any alcohol or drug abuse patient.[facility] CenterIn the event this information is protected by the Federal Confidentiality of Alcohol and Drug Abuse Patient Records regulations: The Federal rules restrict any use of the information to criminally investigate or prosecute any alcohol or drug abuse patient.[facility] CenterIn the event this information is protected by the Federal Confidentiality of Alcohol and Drug Abuse Patient Records regulations: The Federal rules restrict any use of the information to criminally investigate or prosecute any alcohol or drug abuse patient.[facility] CenterIn the event this information is protected by the Federal Confidentiality of Alcohol and Drug Abuse Patient Records regulations: The Federal rules restrict any use of the information to criminally investigate or prosecute any alcohol or drug abuse patient.[facility] CenterIn the event this information is protected by the Federal Confidentiality of Alcohol and Drug Abuse Patient Records regulations: The Federal rules restrict any use of the information to criminally investigate or prosecute any alcohol or drug abuse patient.[facility] CenterIn the event this information is protected by the Federal Confidentiality of Alcohol and Drug Abuse Patient Records regulations: The Federal rules restrict any use of the information to criminally investigate or prosecute any alcohol or drug abuse patient.[facility] CenterIn the event this information is protected by the Federal Confidentiality of Alcohol and Drug Abuse Patient Records regulations: The Federal rules restrict any use of the information to criminally investigate or prosecute any alcohol or drug abuse patient.[facility] CenterIn the event this information is protected by the Federal Confidentiality of Alcohol and Drug Abuse Patient Records regulations: The Federal rules restrict any use of the information to criminally investigate or prosecute any alcohol or drug abuse patient.[facility] CenterIn the event this information is protected by the Federal Confidentiality of Alcohol and Drug Abuse Patient Records regulations: The Federal rules restrict any use of the information to criminally investigate or prosecute any alcohol or drug abuse patient.[facility] CenterIn the event this information is protected by the Federal Confidentiality of Alcohol and Drug Abuse Patient Records regulations: The Federal rules restrict any use of the information to criminally investigate or prosecute any alcohol or drug abuse patient.[facility] CenterIn the event this information is protected by the Federal Confidentiality of Alcohol and Drug Abuse Patient Records regulations: The Federal rules restrict any use of the information to criminally investigate or prosecute any alcohol or drug abuse patient.[facility] CenterIn the event this information is protected by the Federal Confidentiality of Alcohol and Drug Abuse Patient Records regulations: The Federal rules restrict any use of the information to criminally investigate or prosecute any alcohol or drug abuse patient.[facility] CenterIn the event this information is protected by the Federal Confidentiality of Alcohol and Drug Abuse Patient Records regulations: The Federal rules restrict any use of the information to criminally investigate or prosecute any alcohol or drug abuse patient.[facility] CenterIn the event this information is protected by the Federal Confidentiality of Alcohol and Drug Abuse Patient Records regulations: The Federal rules restrict any use of the information to criminally investigate or prosecute any alcohol or drug abuse patient.[facility] CenterIn the event this information is protected by the Federal Confidentiality of Alcohol and Drug Abuse Patient Records regulations: The Federal rules restrict any use of the information to criminally investigate or prosecute any alcohol or drug abuse patient.[facility] CenterIn the event this information is protected by the Federal Confidentiality of Alcohol and Drug Abuse Patient Records regulations: The Federal rules restrict any use of the information to criminally investigate or prosecute any alcohol or drug abuse patient.[facility] CenterIn the event this information is protected by the Federal Confidentiality of Alcohol and Drug Abuse Patient Records regulations: The Federal rules restrict any use of the information to criminally investigate or prosecute any alcohol or drug abuse patient.[facility] CenterIn the event this information is protected by the Federal Confidentiality of Alcohol and Drug Abuse Patient Records regulations: The Federal rules restrict any use of the information to criminally investigate or prosecute any alcohol or drug abuse patient.[facility] CenterIn the event this information is protected by the Federal Confidentiality of Alcohol and Drug Abuse Patient Records regulations: The Federal rules restrict any use of the information to criminally investigate or prosecute any alcohol or drug abuse patient.[facility] CenterIn the event this information is protected by the Federal Confidentiality of Alcohol and Drug Abuse Patient Records regulations: The Federal rules restrict any use of the information to criminally investigate or prosecute any alcohol or drug abuse patient.[facility] CenterIn the event this information is protected by the Federal Confidentiality of Alcohol and Drug Abuse Patient Records regulations: The Federal rules restrict any use of the information to criminally investigate or prosecute any alcohol or drug abuse patient.[facility] CenterIn the event this information is protected by the Federal Confidentiality of Alcohol and Drug Abuse Patient Records regulations: The Federal rules restrict any use of the information to criminally investigate or prosecute any alcohol or drug abuse patient.[facility] CenterIn the event this information is protected by the Federal Confidentiality of Alcohol and Drug Abuse Patient Records regulations: The Federal rules restrict any use of the information to criminally investigate or prosecute any alcohol or drug abuse patient.[facility] CenterIn the event this information is protected by the Federal Confidentiality of Alcohol and Drug Abuse Patient Records regulations: The Federal rules restrict any use of the information to criminally investigate or prosecute any alcohol or drug abuse patient.[facility] CenterIn the event this information is protected by the Federal Confidentiality of Alcohol and Drug Abuse Patient Records regulations: The Federal rules restrict any use of the information to criminally investigate or prosecute any alcohol or drug abuse patient.[facility] CenterIn the event this information is protected by the Federal Confidentiality of Alcohol and Drug Abuse Patient Records regulations: The Federal rules restrict any use of the information to criminally investigate or prosecute any alcohol or drug abuse patient.[facility] CenterIn the event this information is protected by the Federal Confidentiality of Alcohol and Drug Abuse Patient Records regulations: The Federal rules restrict any use of the information to criminally investigate or prosecute any alcohol or drug abuse patient.[facility] CenterIn the event this information is protected by the Federal Confidentiality of Alcohol and Drug Abuse Patient Records regulations: The Federal rules restrict any use of the information to criminally investigate or prosecute any alcohol or drug abuse patient.[facility] CenterIn the event this information is protected by the Federal Confidentiality of Alcohol and Drug Abuse Patient Records regulations: The Federal rules restrict any use of the information to criminally investigate or prosecute any alcohol or drug abuse patient.[facility] CenterIn the event this information is protected by the Federal Confidentiality of Alcohol and Drug Abuse Patient Records regulations: The Federal rules restrict any use of the information to criminally investigate or prosecute any alcohol or drug abuse patient.[facility]In the event this information is protected by the Federal Confidentiality of Alcohol and Drug Abuse Patient Records regulations: The Federal rules restrict any use of the information to criminally investigate or prosecute any alcohol or drug abuse patient.[facility] CenterIn the event this information is protected by the Federal Confidentiality of Alcohol and Drug Abuse Patient Records regulations: The Federal rules restrict any use of the information to criminally investigate or prosecute any alcohol or drug abuse patient.[facility]In the event this information is protected by the Federal Confidentiality of Alcohol and Drug Abuse Patient Records regulations: The Federal rules restrict any use of the information to criminally investigate or prosecute any alcohol or drug abuse patient.[facility]In the event this information is protected by the Federal Confidentiality of Alcohol and Drug Abuse Patient Records regulations: The Federal rules restrict any use of the information to criminally investigate or prosecute any alcohol or drug abuse patient.[facility]In the event this information is protected by the Federal Confidentiality of Alcohol and Drug Abuse Patient Records regulations: The Federal rules restrict any use of the information to criminally investigate or prosecute any alcohol or drug abuse patient.[facility]In the event this information is protected by the Federal Confidentiality of Alcohol and Drug Abuse Patient Records regulations: The Federal rules restrict any use of the information to criminally investigate or prosecute any alcohol or drug abuse patient.[facility]In the event this information is protected by the Federal Confidentiality of Alcohol and Drug Abuse Patient Records regulations: The Federal rules restrict any use of the information to criminally investigate or prosecute any alcohol or drug abuse patient.[facility]In the event this information is protected by the Federal Confidentiality of Alcohol and Drug Abuse Patient Records regulations: The Federal rules restrict any use of the information to criminally investigate or prosecute any alcohol or drug abuse patient.[facility]In the event this information is protected by the Federal Confidentiality of Alcohol and Drug Abuse Patient Records regulations: The Federal rules restrict any use of the information to criminally investigate or prosecute any alcohol or drug abuse patient.[facility]In the event this information is protected by the Federal Confidentiality of Alcohol and Drug Abuse Patient Records regulations: The Federal rules restrict any use of the information to criminally investigate or prosecute any alcohol or drug abuse patient.[facility]In the event this information is protected by the Federal Confidentiality of Alcohol and Drug Abuse Patient Records regulations: The Federal rules restrict any use of the information to criminally investigate or prosecute any alcohol or drug abuse patient.[facility]In the event this information is protected by the Federal Confidentiality of Alcohol and Drug Abuse Patient Records regulations: The Federal rules restrict any use of the information to criminally investigate or prosecute any alcohol or drug abuse patient.[facility]In the event this information is protected by the Federal Confidentiality of Alcohol and Drug Abuse Patient Records regulations: The Federal rules restrict any use of the information to criminally investigate or prosecute any alcohol or drug abuse patient.[facility]In the event this information is protected by the Federal Confidentiality of Alcohol and Drug Abuse Patient Records regulations: The Federal rules restrict any use of the information to criminally investigate or prosecute any alcohol or drug abuse patient.[facility]In the event this information is protected by the Federal Confidentiality of Alcohol and Drug Abuse Patient Records regulations: The Federal rules restrict any use of the information to criminally investigate or prosecute any alcohol or drug abuse patient.[facility]In the event this information is protected by the Federal Confidentiality of Alcohol and Drug Abuse Patient Records regulations: The Federal rules restrict any use of the information to criminally investigate or prosecute any alcohol or drug abuse patient.[facility]In the event this information is protected by the Federal Confidentiality of Alcohol and Drug Abuse Patient Records regulations: The Federal rules restrict any use of the information to criminally investigate or prosecute any alcohol or drug abuse patient.[facility]In the event this information is protected by the Federal Confidentiality of Alcohol and Drug Abuse Patient Records regulations: The Federal rules restrict any use of the information to criminally investigate or prosecute any alcohol or drug abuse patient.[facility]In the event this information is protected by the Federal Confidentiality of Alcohol and Drug Abuse Patient Records regulations: The Federal rules restrict any use of the information to criminally investigate or prosecute any alcohol or drug abuse patient.[facility]In the event this information is protected by the Federal Confidentiality of Alcohol and Drug Abuse Patient Records regulations: The Federal rules restrict any use of the information to criminally investigate or prosecute any alcohol or drug abuse patient.[facility]In the event this information is protected by the Federal Confidentiality of Alcohol and Drug Abuse Patient Records regulations: The Federal rules restrict any use of the information to criminally investigate or prosecute any alcohol or drug abuse patient.[facility]In the event this information is protected by the Federal Confidentiality of Alcohol and Drug Abuse Patient Records regulations: The Federal rules restrict any use of the information to criminally investigate or prosecute any alcohol or drug abuse patient.[facility]In the event this information is protected by the Federal Confidentiality of Alcohol and Drug Abuse Patient Records regulations: The Federal rules restrict any use of the information to criminally investigate or prosecute any alcohol or drug abuse patient.[facility]In the event this information is protected by the Federal Confidentiality of Alcohol and Drug Abuse Patient Records regulations: The Federal rules restrict any use of the information to criminally investigate or prosecute any alcohol or drug abuse patient.[facility]In the event this information is protected by the Federal Confidentiality of Alcohol and Drug Abuse Patient Records regulations: The Federal rules restrict any use of the information to criminally investigate or prosecute any alcohol or drug abuse patient.[facility]In the event this information is protected by the Federal Confidentiality of Alcohol and Drug Abuse Patient Records regulations: The Federal rules restrict any use of the information to criminally investigate or prosecute any alcohol or drug abuse patient.[facility]In the event this information is protected by the Federal Confidentiality of Alcohol and Drug Abuse Patient Records regulations: The Federal rules restrict any use of the information to criminally investigate or prosecute any alcohol or drug abuse patient.[facility]In the event this information is protected by the Federal Confidentiality of Alcohol and Drug Abuse Patient Records regulations: The Federal rules restrict any use of the information to criminally investigate or prosecute any alcohol or drug abuse patient.[facility]In the event this information is protected by the Federal Confidentiality of Alcohol and Drug Abuse Patient Records regulations: The Federal rules restrict any use of the information to criminally investigate or prosecute any alcohol or drug abuse patient.[facility]In the event this information is protected by the Federal Confidentiality of Alcohol and Drug Abuse Patient Records regulations: The Federal rules restrict any use of the information to criminally investigate or prosecute any alcohol or drug abuse patient.[facility]In the event this information is protected by the Federal Confidentiality of Alcohol and Drug Abuse Patient Records regulations: The Federal rules restrict any use of the information to criminally investigate or prosecute any alcohol or drug abuse patient.[facility]In the event this information is protected by the Federal Confidentiality of Alcohol and Drug Abuse Patient Records regulations: The Federal rules restrict any use of the information to criminally investigate or prosecute any alcohol or drug abuse patient.[facility]In the event this information is protected by the Federal Confidentiality of Alcohol and Drug Abuse Patient Records regulations: The Federal rules restrict any use of the information to criminally investigate or prosecute any alcohol or drug abuse patient.[facility]In the event this information is protected by the Federal Confidentiality of Alcohol and Drug Abuse Patient Records regulations: The Federal rules restrict any use of the information to criminally investigate or prosecute any alcohol or drug abuse patient.[facility]In the event this information is protected by the Federal Confidentiality of Alcohol and Drug Abuse Patient Records regulations: The Federal rules restrict any use of the information to criminally investigate or prosecute any alcohol or drug abuse patient.[facility]In the event this information is protected by the Federal Confidentiality of Alcohol and Drug Abuse Patient Records regulations: The Federal rules restrict any use of the information to criminally investigate or prosecute any alcohol or drug abuse patient.[facility]In the event this information is protected by the Federal Confidentiality of Alcohol and Drug Abuse Patient Records regulations: The Federal rules restrict any use of the information to criminally investigate or prosecute any alcohol or drug abuse patient.[facility]In the event this information is protected by the Federal Confidentiality of Alcohol and Drug Abuse Patient Records regulations: The Federal rules restrict any use of the information to criminally investigate or prosecute any alcohol or drug abuse patient.[facility]In the event this information is protected by the Federal Confidentiality of Alcohol and Drug Abuse Patient Records regulations: The Federal rules restrict any use of the information to criminally investigate or prosecute any alcohol or drug abuse patient.[facility]In the event this information is protected by the Federal Confidentiality of Alcohol and Drug Abuse Patient Records regulations: The Federal rules restrict any use of the information to criminally investigate or prosecute any alcohol or drug abuse patient.[facility]In the event this information is protected by the Federal Confidentiality of Alcohol and Drug Abuse Patient Records regulations: The Federal rules restrict any use of the information to criminally investigate or prosecute any alcohol or drug abuse patient.[facility]In the event this information is protected by the Federal Confidentiality of Alcohol and Drug Abuse Patient Records regulations: The Federal rules restrict any use of the information to criminally investigate or prosecute any alcohol or drug abuse patient.[facility]In the event this information is protected by the Federal Confidentiality of Alcohol and Drug Abuse Patient Records regulations: The Federal rules restrict any use of the information to criminally investigate or prosecute any alcohol or drug abuse patient.[facility]In the event this information is protected by the Federal Confidentiality of Alcohol and Drug Abuse Patient Records regulations: The Federal rules restrict any use of the information to criminally investigate or prosecute any alcohol or drug abuse patient.[facility]In the event this information is protected by the Federal Confidentiality of Alcohol and Drug Abuse Patient Records regulations: The Federal rules restrict any use of the information to criminally investigate or prosecute any alcohol or drug abuse patient.[facility]In the event this information is protected by the Federal Confidentiality of Alcohol and Drug Abuse Patient Records regulations: The Federal rules restrict any use of the information to criminally investigate or prosecute any alcohol or drug abuse patient.[facility]In the event this information is protected by the Federal Confidentiality of Alcohol and Drug Abuse Patient Records regulations: The Federal rules restrict any use of the information to criminally investigate or prosecute any alcohol or drug abuse patient.[facility]In the event this information is protected by the Federal Confidentiality of Alcohol and Drug Abuse Patient Records regulations: The Federal rules restrict any use of the information to criminally investigate or prosecute any alcohol or drug abuse patient.[facility]In the event this information is protected by the Federal Confidentiality of Alcohol and Drug Abuse Patient Records regulations: The Federal rules restrict any use of the information to criminally investigate or prosecute any alcohol or drug abuse patient.[facility]In the event this information is protected by the Federal Confidentiality of Alcohol and Drug Abuse Patient Records regulations: The Federal rules restrict any use of the information to criminally investigate or prosecute any alcohol or drug abuse patient.[facility] CenterIn the event this information is protected by the Federal Confidentiality of Alcohol and Drug Abuse Patient Records regulations: The Federal rules restrict any use of the information to criminally investigate or prosecute any alcohol or drug abuse patient.[facility] CenterIn the event this information is protected by the Federal Confidentiality of Alcohol and Drug Abuse Patient Records regulations: The Federal rules restrict any use of the information to criminally investigate or prosecute any alcohol or drug abuse patient.[facility] CenterIn the event this information is protected by the Federal Confidentiality of Alcohol and Drug Abuse Patient Records regulations: The Federal rules restrict any use of the information to criminally investigate or prosecute any alcohol or drug abuse patient.[facility] CenterIn the event this information is protected by the Federal Confidentiality of Alcohol and Drug Abuse Patient Records regulations: The Federal rules restrict any use of the information to criminally investigate or prosecute any alcohol or drug abuse patient.[facility] CenterIn the event this information is protected by the Federal Confidentiality of Alcohol and Drug Abuse Patient Records regulations: The Federal rules restrict any use of the information to criminally investigate or prosecute any alcohol or drug abuse patient.[facility] CenterIn the event this information is protected by the Federal Confidentiality of Alcohol and Drug Abuse Patient Records regulations: The Federal rules restrict any use of the information to criminally investigate or prosecute any alcohol or drug abuse patient.[facility] CenterIn the event this information is protected by the Federal Confidentiality of Alcohol and Drug Abuse Patient Records regulations: The Federal rules restrict any use of the information to criminally investigate or prosecute any alcohol or drug abuse patient.[facility] CenterIn the event this information is protected by the Federal Confidentiality of Alcohol and Drug Abuse Patient Records regulations: The Federal rules restrict any use of the information to criminally investigate or prosecute any alcohol or drug abuse patient.[facility] CenterIn the event this information is protected by the Federal Confidentiality of Alcohol and Drug Abuse Patient Records regulations: The Federal rules restrict any use of the information to criminally investigate or prosecute any alcohol or drug abuse patient.[facility] CenterIn the event this information is protected by the Federal Confidentiality of Alcohol and Drug Abuse Patient Records regulations: The Federal rules restrict any use of the information to criminally investigate or prosecute any alcohol or drug abuse patient.[facility] CenterIn the event this information is protected by the Federal Confidentiality of Alcohol and Drug Abuse Patient Records regulations: The Federal rules restrict any use of the information to criminally investigate or prosecute any alcohol or drug abuse patient.[facility] CenterIn the event this information is protected by the Federal Confidentiality of Alcohol and Drug Abuse Patient Records regulations: The Federal rules restrict any use of the information to criminally investigate or prosecute any alcohol or drug abuse patient.[facility] CenterIn the event this information is protected by the Federal Confidentiality of Alcohol and Drug Abuse Patient Records regulations: The Federal rules restrict any use of the information to criminally investigate or prosecute any alcohol or drug abuse patient.[facility] CenterIn the event this information is protected by the Federal Confidentiality of Alcohol and Drug Abuse Patient Records regulations: The Federal rules restrict any use of the information to criminally investigate or prosecute any alcohol or drug abuse patient.[facility] CenterIn the event this information is protected by the Federal Confidentiality of Alcohol and Drug Abuse Patient Records regulations: The Federal rules restrict any use of the information to criminally investigate or prosecute any alcohol or drug abuse patient.[facility] CenterIn the event this information is protected by the Federal Confidentiality of Alcohol and Drug Abuse Patient Records regulations: The Federal rules restrict any use of the information to criminally investigate or prosecute any alcohol or drug abuse patient.[facility] CenterIn the event this information is protected by the Federal Confidentiality of Alcohol and Drug Abuse Patient Records regulations: The Federal rules restrict any use of the information to criminally investigate or prosecute any alcohol or drug abuse patient.[facility] CenterIn the event this information is protected by the Federal Confidentiality of Alcohol and Drug Abuse Patient Records regulations: The Federal rules restrict any use of the information to criminally investigate or prosecute any alcohol or drug abuse patient.[facility] CenterIn the event this information is protected by the Federal Confidentiality of Alcohol and Drug Abuse Patient Records regulations: The Federal rules restrict any use of the information to criminally investigate or prosecute any alcohol or drug abuse patient.[facility] CenterIn the event this information is protected by the Federal Confidentiality of Alcohol and Drug Abuse Patient Records regulations: The Federal rules restrict any use of the information to criminally investigate or prosecute any alcohol or drug abuse patient.[facility] CenterIn the event this information is protected by the Federal Confidentiality of Alcohol and Drug Abuse Patient Records regulations: The Federal rules restrict any use of the information to criminally investigate or prosecute any alcohol or drug abuse patient.[facility] CenterIn the event this information is protected by the Federal Confidentiality of Alcohol and Drug Abuse Patient Records regulations: The Federal rules restrict any use of the information to criminally investigate or prosecute any alcohol or drug abuse patient.[facility] CenterIn the event this information is protected by the Federal Confidentiality of Alcohol and Drug Abuse Patient Records regulations: The Federal rules restrict any use of the information to criminally investigate or prosecute any alcohol or drug abuse patient.[facility] CenterIn the event this information is protected by the Federal Confidentiality of Alcohol and Drug Abuse Patient Records regulations: The Federal rules restrict any use of the information to criminally investigate or prosecute any alcohol or drug abuse patient.[facility] CenterIn the event this information is protected by the Federal Confidentiality of Alcohol and Drug Abuse Patient Records regulations: The Federal rules restrict any use of the information to criminally investigate or prosecute any alcohol or drug abuse patient.[facility] CenterIn the event this information is protected by the Federal Confidentiality of Alcohol and Drug Abuse Patient Records regulations: The Federal rules restrict any use of the information to criminally investigate or prosecute any alcohol or drug abuse patient.[facility] CenterIn the event this information is protected by the Federal Confidentiality of Alcohol and Drug Abuse Patient Records regulations: The Federal rules restrict any use of the information to criminally investigate or prosecute any alcohol or drug abuse patient.[facility] CenterIn the event this information is protected by the Federal Confidentiality of Alcohol and Drug Abuse Patient Records regulations: The Federal rules restrict any use of the information to criminally investigate or prosecute any alcohol or drug abuse patient.[facility] CenterIn the event this information is protected by the Federal Confidentiality of Alcohol and Drug Abuse Patient Records regulations: The Federal rules restrict any use of the information to criminally investigate or prosecute any alcohol or drug abuse patient.[facility] CenterIn the event this information is protected by the Federal Confidentiality of Alcohol and Drug Abuse Patient Records regulations: The Federal rules restrict any use of the information to criminally investigate or prosecute any alcohol or drug abuse patient.[facility] CenterIn the event this information is protected by the Federal Confidentiality of Alcohol and Drug Abuse Patient Records regulations: The Federal rules restrict any use of the information to criminally investigate or prosecute any alcohol or drug abuse patient.[facility] CenterIn the event this information is protected by the Federal Confidentiality of Alcohol and Drug Abuse Patient Records regulations: The Federal rules restrict any use of the information to criminally investigate or prosecute any alcohol or drug abuse patient.[facility] CenterIn the event this information is protected by the Federal Confidentiality of Alcohol and Drug Abuse Patient Records regulations: The Federal rules restrict any use of the information to criminally investigate or prosecute any alcohol or drug abuse patient.[facility] CenterIn the event this information is protected by the Federal Confidentiality of Alcohol and Drug Abuse Patient Records regulations: The Federal rules restrict any use of the information to criminally investigate or prosecute any alcohol or drug abuse patient.[facility]In the event this information is protected by the Federal Confidentiality of Alcohol and Drug Abuse Patient Records regulations: The Federal rules restrict any use of the information to criminally investigate or prosecute any alcohol or drug abuse patient.[facility]In the event this information is protected by the Federal Confidentiality of Alcohol and Drug Abuse Patient Records regulations: The Federal rules restrict any use of the information to criminally investigate or prosecute any alcohol or drug abuse patient.[facility]In the event this information is protected by the Federal Confidentiality of Alcohol and Drug Abuse Patient Records regulations: The Federal rules restrict any use of the information to criminally investigate or prosecute any alcohol or drug abuse patient.[facility]In the event this information is protected by the Federal Confidentiality of Alcohol and Drug Abuse Patient Records regulations: The Federal rules restrict any use of the information to criminally investigate or prosecute any alcohol or drug abuse patient.[facility]In the event this information is protected by the Federal Confidentiality of Alcohol and Drug Abuse Patient Records regulations: The Federal rules restrict any use of the information to criminally investigate or prosecute any alcohol or drug abuse patient.[facility]In the event this information is protected by the Federal Confidentiality of Alcohol and Drug Abuse Patient Records regulations: The Federal rules restrict any use of the information to criminally investigate or prosecute any alcohol or drug abuse patient.[facility]In the event this information is protected by the Federal Confidentiality of Alcohol and Drug Abuse Patient Records regulations: The Federal rules restrict any use of the information to criminally investigate or prosecute any alcohol or drug abuse patient.[facility]In the event this information is protected by the Federal Confidentiality of Alcohol and Drug Abuse Patient Records regulations: The Federal rules restrict any use of the information to criminally investigate or prosecute any alcohol or drug abuse patient.[facility]In the event this information is protected by the Federal Confidentiality of Alcohol and Drug Abuse Patient Records regulations: The Federal rules restrict any use of the information to criminally investigate or prosecute any alcohol or drug abuse patient.[facility]In the event this information is protected by the Federal Confidentiality of Alcohol and Drug Abuse Patient Records regulations: The Federal rules restrict any use of the information to criminally investigate or prosecute any alcohol or drug abuse patient.[facility]In the event this information is protected by the Federal Confidentiality of Alcohol and Drug Abuse Patient Records regulations: The Federal rules restrict any use of the information to criminally investigate or prosecute any alcohol or drug abuse patient.[facility]In the event this information is protected by the Federal Confidentiality of Alcohol and Drug Abuse Patient Records regulations: The Federal rules restrict any use of the information to criminally investigate or prosecute any alcohol or drug abuse patient.[facility]In the event this information is protected by the Federal Confidentiality of Alcohol and Drug Abuse Patient Records regulations: The Federal rules restrict any use of the information to criminally investigate or prosecute any alcohol or drug abuse patient.[facility]In the event this information is protected by the Federal Confidentiality of Alcohol and Drug Abuse Patient Records regulations: The Federal rules restrict any use of the information to criminally investigate or prosecute any alcohol or drug abuse patient.[facility]In the event this information is protected by the Federal Confidentiality of Alcohol and Drug Abuse Patient Records regulations: The Federal rules restrict any use of the information to criminally investigate or prosecute any alcohol or drug abuse patient.[facility]In the event this information is protected by the Federal Confidentiality of Alcohol and Drug Abuse Patient Records regulations: The Federal rules restrict any use of the information to criminally investigate or prosecute any alcohol or drug abuse patient.[facility]In the event this information is protected by the Federal Confidentiality of Alcohol and Drug Abuse Patient Records regulations: The Federal rules restrict any use of the information to criminally investigate or prosecute any alcohol or drug abuse patient.[facility]In the event this information is protected by the Federal Confidentiality of Alcohol and Drug Abuse Patient Records regulations: The Federal rules restrict any use of the information to criminally investigate or prosecute any alcohol or drug abuse patient.[facility]In the event this information is protected by the Federal Confidentiality of Alcohol and Drug Abuse Patient Records regulations: The Federal rules restrict any use of the information to criminally investigate or prosecute any alcohol or drug abuse patient.[facility]In the event this information is protected by the Federal Confidentiality of Alcohol and Drug Abuse Patient Records regulations: The Federal rules restrict any use of the information to criminally investigate or prosecute any alcohol or drug abuse patient.[facility]In the event this information is protected by the Federal Confidentiality of Alcohol and Drug Abuse Patient Records regulations: The Federal rules restrict any use of the information to criminally investigate or prosecute any alcohol or drug abuse patient.[facility]In the event this information is protected by the Federal Confidentiality of Alcohol and Drug Abuse Patient Records regulations: The Federal rules restrict any use of the information to criminally investigate or prosecute any alcohol or drug abuse patient.[facility]In the event this information is protected by the Federal Confidentiality of Alcohol and Drug Abuse Patient Records regulations: The Federal rules restrict any use of the information to criminally investigate or prosecute any alcohol or drug abuse patient.[facility]In the event this information is protected by the Federal Confidentiality of Alcohol and Drug Abuse Patient Records regulations: The Federal rules restrict any use of the information to criminally investigate or prosecute any alcohol or drug abuse patient.[facility]In the event this information is protected by the Federal Confidentiality of Alcohol and Drug Abuse Patient Records regulations: The Federal rules restrict any use of the information to criminally investigate or prosecute any alcohol or drug abuse patient.[facility]In the event this information is protected by the Federal Confidentiality of Alcohol and Drug Abuse Patient Records regulations: The Federal rules restrict any use of the information to criminally investigate or prosecute any alcohol or drug abuse patient.[facility]In the event this information is protected by the Federal Confidentiality of Alcohol and Drug Abuse Patient Records regulations: The Federal rules restrict any use of the information to criminally investigate or prosecute any alcohol or drug abuse patient.[facility]In the event this information is protected by the Federal Confidentiality of Alcohol and Drug Abuse Patient Records regulations: The Federal rules restrict any use of the information to criminally investigate or prosecute any alcohol or drug abuse patient.[facility]In the event this information is protected by the Federal Confidentiality of Alcohol and Drug Abuse Patient Records regulations: The Federal rules restrict any use of the information to criminally investigate or prosecute any alcohol or drug abuse patient.[facility]In the event this information is protected by the Federal Confidentiality of Alcohol and Drug Abuse Patient Records regulations: The Federal rules restrict any use of the information to criminally investigate or prosecute any alcohol or drug abuse patient.[facility]In the event this information is protected by the Federal Confidentiality of Alcohol and Drug Abuse Patient Records regulations: The Federal rules restrict any use of the information to criminally investigate or prosecute any alcohol or drug abuse patient.[facility]In the event this information is protected by the Federal Confidentiality of Alcohol and Drug Abuse Patient Records regulations: The Federal rules restrict any use of the information to criminally investigate or prosecute any alcohol or drug abuse patient.[facility]In the event this information is protected by the Federal Confidentiality of Alcohol and Drug Abuse Patient Records regulations: The Federal rules restrict any use of the information to criminally investigate or prosecute any alcohol or drug abuse patient.[facility]In the event this information is protected by the Federal Confidentiality of Alcohol and Drug Abuse Patient Records regulations: The Federal rules restrict any use of the information to criminally investigate or prosecute any alcohol or drug abuse patient.[facility]In the event this information is protected by the Federal Confidentiality of Alcohol and Drug Abuse Patient Records regulations: The Federal rules restrict any use of the information to criminally investigate or prosecute any alcohol or drug abuse patient.[facility]In the event this information is protected by the Federal Confidentiality of Alcohol and Drug Abuse Patient Records regulations: The Federal rules restrict any use of the information to criminally investigate or prosecute any alcohol or drug abuse patient.[facility]In the event this information is protected by the Federal Confidentiality of Alcohol and Drug Abuse Patient Records regulations: The Federal rules restrict any use of the information to criminally investigate or prosecute any alcohol or drug abuse patient.[facility]In the event this information is protected by the Federal Confidentiality of Alcohol and Drug Abuse Patient Records regulations: The Federal rules restrict any use of the information to criminally investigate or prosecute any alcohol or drug abuse patient.[facility]In the event this information is protected by the Federal Confidentiality of Alcohol and Drug Abuse Patient Records regulations: The Federal rules restrict any use of the information to criminally investigate or prosecute any alcohol or drug abuse patient.[facility]In the event this information is protected by the Federal Confidentiality of Alcohol and Drug Abuse Patient Records regulations: The Federal rules restrict any use of the information to criminally investigate or prosecute any alcohol or drug abuse patient.[facility]In the event this information is protected by the Federal Confidentiality of Alcohol and Drug Abuse Patient Records regulations: The Federal rules restrict any use of the information to criminally investigate or prosecute any alcohol or drug abuse patient.[facility]In the event this information is protected by the Federal Confidentiality of Alcohol and Drug Abuse Patient Records regulations: The Federal rules restrict any use of the information to criminally investigate or prosecute any alcohol or drug abuse patient.[facility]In the event this information is protected by the Federal Confidentiality of Alcohol and Drug Abuse Patient Records regulations: The Federal rules restrict any use of the information to criminally investigate or prosecute any alcohol or drug abuse patient.[facility]In the event this information is protected by the Federal Confidentiality of Alcohol and Drug Abuse Patient Records regulations: The Federal rules restrict any use of the information to criminally investigate or prosecute any alcohol or drug abuse patient.[facility] CenterIn the event this information is protected by the Federal Confidentiality of Alcohol and Drug Abuse Patient Records regulations: The Federal rules restrict any use of the information to criminally investigate or prosecute any alcohol or drug abuse patient.[facility] CenterIn the event this information is protected by the Federal Confidentiality of Alcohol and Drug Abuse Patient Records regulations: The Federal rules restrict any use of the information to criminally investigate or prosecute any alcohol or drug abuse patient.[facility] CenterIn the event this information is protected by the Federal Confidentiality of Alcohol and Drug Abuse Patient Records regulations: The Federal rules restrict any use of the information to criminally investigate or prosecute any alcohol or drug abuse patient.[facility] CenterIn the event this information is protected by the Federal Confidentiality of Alcohol and Drug Abuse Patient Records regulations: The Federal rules restrict any use of the information to criminally investigate or prosecute any alcohol or drug abuse patient.[facility] CenterIn the event this information is protected by the Federal Confidentiality of Alcohol and Drug Abuse Patient Records regulations: The Federal rules restrict any use of the information to criminally investigate or prosecute any alcohol or drug abuse patient.[facility] CenterIn the event this information is protected by the Federal Confidentiality of Alcohol and Drug Abuse Patient Records regulations: The Federal rules restrict any use of the information to criminally investigate or prosecute any alcohol or drug abuse patient.[facility] CenterIn the event this information is protected by the Federal Confidentiality of Alcohol and Drug Abuse Patient Records regulations: The Federal rules restrict any use of the information to criminally investigate or prosecute any alcohol or drug abuse patient.[facility] CenterIn the event this information is protected by the Federal Confidentiality of Alcohol and Drug Abuse Patient Records regulations: The Federal rules restrict any use of the information to criminally investigate or prosecute any alcohol or drug abuse patient.[facility] CenterIn the event this information is protected by the Federal Confidentiality of Alcohol and Drug Abuse Patient Records regulations: The Federal rules restrict any use of the information to criminally investigate or prosecute any alcohol or drug abuse patient.[facility] CenterIn the event this information is protected by the Federal Confidentiality of Alcohol and Drug Abuse Patient Records regulations: The Federal rules restrict any use of the information to criminally investigate or prosecute any alcohol or drug abuse patient.[facility] CenterIn the event this information is protected by the Federal Confidentiality of Alcohol and Drug Abuse Patient Records regulations: The Federal rules restrict any use of the information to criminally investigate or prosecute any alcohol or drug abuse patient.[facility] CenterIn the event this information is protected by the Federal Confidentiality of Alcohol and Drug Abuse Patient Records regulations: The Federal rules restrict any use of the information to criminally investigate or prosecute any alcohol or drug abuse patient.[facility] CenterIn the event this information is protected by the Federal Confidentiality of Alcohol and Drug Abuse Patient Records regulations: The Federal rules restrict any use of the information to criminally investigate or prosecute any alcohol or drug abuse patient.[facility] CenterIn the event this information is protected by the Federal Confidentiality of Alcohol and Drug Abuse Patient Records regulations: The Federal rules restrict any use of the information to criminally investigate or prosecute any alcohol or drug abuse patient.[facility] CenterIn the event this information is protected by the Federal Confidentiality of Alcohol and Drug Abuse Patient Records regulations: The Federal rules restrict any use of the information to criminally investigate or prosecute any alcohol or drug abuse patient.[facility] CenterIn the event this information is protected by the Federal Confidentiality of Alcohol and Drug Abuse Patient Records regulations: The Federal rules restrict any use of the information to criminally investigate or prosecute any alcohol or drug abuse patient.[facility] CenterIn the event this information is protected by the Federal Confidentiality of Alcohol and Drug Abuse Patient Records regulations: The Federal rules restrict any use of the information to criminally investigate or prosecute any alcohol or drug abuse patient.[facility] CenterIn the event this information is protected by the Federal Confidentiality of Alcohol and Drug Abuse Patient Records regulations: The Federal rules restrict any use of the information to criminally investigate or prosecute any alcohol or drug abuse patient.[facility] CenterIn the event this information is protected by the Federal Confidentiality of Alcohol and Drug Abuse Patient Records regulations: The Federal rules restrict any use of the information to criminally investigate or prosecute any alcohol or drug abuse patient.[facility] CenterIn the event this information is protected by the Federal Confidentiality of Alcohol and Drug Abuse Patient Records regulations: The Federal rules restrict any use of the information to criminally investigate or prosecute any alcohol or drug abuse patient.[facility] CenterIn the event this information is protected by the Federal Confidentiality of Alcohol and Drug Abuse Patient Records regulations: The Federal rules restrict any use of the information to criminally investigate or prosecute any alcohol or drug abuse patient.[facility] CenterIn the event this information is protected by the Federal Confidentiality of Alcohol and Drug Abuse Patient Records regulations: The Federal rules restrict any use of the information to criminally investigate or prosecute any alcohol or drug abuse patient.[facility] CenterIn the event this information is protected by the Federal Confidentiality of Alcohol and Drug Abuse Patient Records regulations: The Federal rules restrict any use of the information to criminally investigate or prosecute any alcohol or drug abuse patient.[facility] CenterIn the event this information is protected by the Federal Confidentiality of Alcohol and Drug Abuse Patient Records regulations: The Federal rules restrict any use of the information to criminally investigate or prosecute any alcohol or drug abuse patient.[facility] CenterIn the event this information is protected by the Federal Confidentiality of Alcohol and Drug Abuse Patient Records regulations: The Federal rules restrict any use of the information to criminally investigate or prosecute any alcohol or drug abuse patient.[facility] CenterIn the event this information is protected by the Federal Confidentiality of Alcohol and Drug Abuse Patient Records regulations: The Federal rules restrict any use of the information to criminally investigate or prosecute any alcohol or drug abuse patient.[facility] CenterIn the event this information is protected by the Federal Confidentiality of Alcohol and Drug Abuse Patient Records regulations: The Federal rules restrict any use of the information to criminally investigate or prosecute any alcohol or drug abuse patient.[facility] CenterIn the event this information is protected by the Federal Confidentiality of Alcohol and Drug Abuse Patient Records regulations: The Federal rules restrict any use of the information to criminally investigate or prosecute any alcohol or drug abuse patient.[facility] CenterIn the event this information is protected by the Federal Confidentiality of Alcohol and Drug Abuse Patient Records regulations: The Federal rules restrict any use of the information to criminally investigate or prosecute any alcohol or drug abuse patient.[facility] CenterIn the event this information is protected by the Federal Confidentiality of Alcohol and Drug Abuse Patient Records regulations: The Federal rules restrict any use of the information to criminally investigate or prosecute any alcohol or drug abuse patient.[facility] CenterIn the event this information is protected by the Federal Confidentiality of Alcohol and Drug Abuse Patient Records regulations: The Federal rules restrict any use of the information to criminally investigate or prosecute any alcohol or drug abuse patient.[facility] CenterIn the event this information is protected by the Federal Confidentiality of Alcohol and Drug Abuse Patient Records regulations: The Federal rules restrict any use of the information to criminally investigate or prosecute any alcohol or drug abuse patient.[facility] CenterIn the event this information is protected by the Federal Confidentiality of Alcohol and Drug Abuse Patient Records regulations: The Federal rules restrict any use of the information to criminally investigate or prosecute any alcohol or drug abuse patient.[facility] CenterIn the event this information is protected by the Federal Confidentiality of Alcohol and Drug Abuse Patient Records regulations: The Federal rules restrict any use of the information to criminally investigate or prosecute any alcohol or drug abuse patient.[facility] CenterIn the event this information is protected by the Federal Confidentiality of Alcohol and Drug Abuse Patient Records regulations: The Federal rules restrict any use of the information to criminally investigate or prosecute any alcohol or drug abuse patient.[facility] CenterIn the event this information is protected by the Federal Confidentiality of Alcohol and Drug Abuse Patient Records regulations: The Federal rules restrict any use of the information to criminally investigate or prosecute any alcohol or drug abuse patient.[facility] CenterIn the event this information is protected by the Federal Confidentiality of Alcohol and Drug Abuse Patient Records regulations: The Federal rules restrict any use of the information to criminally investigate or prosecute any alcohol or drug abuse patient.[facility] Care Teams (unrecognized sec tion and content) Pre K Teacher Relationship Specialty Start Date End Date Christina Azul MD [address] [place] [id number] PCP - General Family Practice 07/03/21 Sofie Diana MD [address] [place] [address] Primary Staff Physician Cardiology 07/03/21 Verito Whelan MD [address] [place], [place] [id number] Referring Pulmonary Disease 10/04/21 Pre K Teacher Relationship Specialty Start Date End Date Christina Azul MD [address] [place] [address] PCP - General Family Practice 07/03/21 Sofie Diana MD [address] [place] [address] Primary Staff Physician Cardiology 07/03/21 Verito Whelan MD [address] [place] [address] Referring Pulmonary Disease 10/04/21 Pre K Teacher Relationship Specialty Start Date End Date Christina Azul MD [address] [place] [address] PCP - General Family Practice 07/03/21 Sofie Diana MD [address] [place] [address] Primary Staff Physician Cardiology 07/03/21 Verito Whelan MD [address] [place] [address] Referring Pulmonary Disease 10/04/21 Pre K Teacher Relationship Specialty Start Date End Date Christina Azul MD [address] [place] [address] PCP - General Family Practice 07/03/21 Sofie Diana MD [address] [place] [address] Primary Staff Physician Cardiology 07/03/21 Verito Whelan MD [address] [place] [address] Referring Pulmonary Disease 10/04/21 Nina Grigsby MD [address] [place] [address] Physician Hematology/Oncology 10/25/21 Patricia Miller, OZZIE.ACCESS LEAD [address] [place] [address] Nurse Practitioner Hematology/Oncology 10/25/21 Denita Rai, KERRY [address] [place] [address] Specialty Federal Appellate Law Clerk Hematology/Oncology 10/25/21 Pre K Teacher Relationship Specialty Start Date End Date Christina Azul MD [address] [place] [address] PCP - General Family Practice 07/03/21 Sofie Diana MD [address] [place] [address] Primary Staff Physician Cardiology 07/03/21 Verito Whelan MD [address] [place], [place] [address] Referring Pulmonary Disease 10/04/21 Nina Grigsby MD [address] [place] [address] [place] [address] Physician Hematology/Oncology 10/25/21 Patricia Miller, DRAWING IN MACHINE TENDER HELPER.ACCESS LEAD [address] [facility] [place] [address] Nurse Practitioner Hematology/Oncology 10/25/21 Denita Rai, RN [address] [place] [address] Specialty Federal Appellate Law Clerk Hematology/Oncology 10/25/21 Pre K Teacher Relationship Specialty Start Date End Date Christina Azul MD [address] [place] [id number] PCP - General Family Practice 07/03/21 Sofie Diana MD [address] [place] [address] Primary Staff Physician Cardiology 07/03/21 Verito Whelan MD [address] [place], [place] [id number] Referring Pulmonary Disease 10/04/21 Pre K Teacher Relationship Specialty Start Date End Date Christina Azul MD [address] [place], [place] [id number] PCP - General [facility] Practice 07/03/21 Sofie Diana MD [address] [place] [address] Primary Staff Physician Cardiology 07/03/21 Verito Whelan MD [address] [place] [address] Referring Pulmonary Disease 10/04/21 Nina Grigsby MD [address] [place] [address] [place] [address] Physician Hematology/Oncology 10/25/21 Patricia Miller, DRAWING IN MACHINE TENDER HELPER.ACCESS LEAD [address] [facility] [place] [address] Nurse Practitioner Hematology/Oncology 10/25/21 Denita Rai, RN [address] [facility] [place] [address] Specialty Federal Appellate Law Clerk Hematology/Oncology 10/25/21 Pre K Teacher Relationship Specialty Start Date End Date Christina Azul MD [address] [place] [id number] PCP - General Family Practice 07/03/21 Sofie Diana MD [address] [place] [address] Primary Staff Physician Cardiology 07/03/21 Verito Whelan MD [address] [place] [address] Referring Pulmonary Disease 10/04/21 Nina Grigsby MD [address] [facility] [place] [address] Physician Hematology/Oncology 10/25/21 Patricia Miller, DRAWING IN MACHINE TENDER HELPER.[address] [place] [address] Nurse Practitioner Hematology/Oncology 10/25/21 Denita Rai, KERRY [address] [place] [address] [place] [address] Specialty Federal Appellate Law Clerk Hematology/Oncology 10/25/21 Pre K Teacher Relationship Specialty Start Date End Date Christina Azul MD [address] [place] [address] PCP - General Family Practice 07/03/21 Sofie Diana MD [address] [place] [address] Primary Staff Physician Cardiology 07/03/21 Verito Whelan MD [address] [place] [address] Referring Pulmonary Disease 10/04/21 Nina Grigsby MD [address] [place] [address] [place] [address] Physician Hematology/Oncology 10/25/21 Patricia Miller, DRAWING IN MACHINE TENDER HELPER.[address] [place] [address] Nurse Practitioner Hematology/Oncology 10/25/21 Dneita Rai, KERRY [address] [place] [address] [place] [address] Specialty Federal Appellate Law Clerk Hematology/Oncology 10/25/21 Pre K Teacher Relationship Specialty Start Date End Date Christina Azul MD [address] [place] [address] PCP - General Family Practice 07/03/21 Sofie Diana MD [address] [place], [place] [id number] Primary Staff Physician Cardiology 07/03/21 Verito Whelan MD [address] [place], [place] [id number] Referring Pulmonary Disease 10/04/21 Nina Grigsby MD [address] [facility] [place] [address] Physician Hematology/Oncology 10/25/21 Patricia Miller, DRAWING IN MACHINE TENDER HELPER.ACCESS LEAD [address] [facility] [place] [address] Nurse Practitioner Hematology/Oncology 10/25/21 Denita Rai, KERRY [address] [facility] [place] [address] Specialty Federal Appellate Law Clerk Hematology/Oncology 10/25/21 Pre K Teacher Relationship Specialty Start Date End Date Christina Azul MD [address] [place] [address] PCP - General Family Practice 07/03/21 Sofie Diana MD [address] [place] [address] Primary Staff Physician Cardiology 07/03/21 Verito Whelan MD [address] [place] [address] Referring Pulmonary Disease 10/04/21 Nina Grigsby MD [address] [facility] [place] [address] Physician Hematology/Oncology 10/25/21 Patricia Miller, DRAWING IN MACHINE TENDER HELPER.ACCESS LEAD [address] [place] [address] [place] [address] Nurse Practitioner Hematology/Oncology 10/25/21 Denita Rai, RN [address] [facility] [place] [address] Specialty Federal Appellate Law Clerk Hematology/Oncology 10/25/21 Pre K Teacher Relationship Specialty Start Date End Date Christina Azul MD [address] [place] [id number] PCP - General Family Practice 07/03/21 Sofie Diana MD [address] [place], [place] [id number] Primary Staff Physician Cardiology 07/03/21 Verito Whelan MD [address] [place] [address] Referring Pulmonary Disease 10/04/21 Nina Grigsby MD [address] [facility] [place] [address] Physician Hematology/Oncology 10/25/21 Patricia Miller, DRAWING IN MACHINE TENDER HELPER.[facility] [address] [place] [address] Nurse Practitioner Hematology/Oncology 10/25/21 Denita Rai, RN [address] [facility] [place] [address] Specialty Federal Appellate Law Clerk Hematology/Oncology 10/25/21 Pre K Teacher Relationship Specialty Start Date End Date Christina Azul MD [address] [place] [id number] PCP - General Family Practice 07/03/21 Sofie Diana MD [address] [place] [address] Primary Staff Physician Cardiology 07/03/21 Verito Whelan MD [address] [place] [address] Referring Pulmonary Disease 10/04/21 Nnia Grigsby MD [address] [facility] [place] [address] Physician Hematology/Oncology 10/25/21 Patricia Miller, DRAWING IN MACHINE TENDER HELPER.ACCESS LEAD [address] [facility] [place] [address] Nurse Practitioner Hematology/Oncology 10/25/21 Denita Rai, KERRY [address] [place] [address] [place] [address] Specialty Federal Appellate Law Clerk Hematology/Oncology 10/25/21 Pre K Teacher Relationship Specialty Start Date End Date Christina Azul MD [address] [place] [address] PCP - General Family Practice 07/03/21 Sofie Diana MD [address] [place] [address] Primary Staff Physician Cardiology 07/03/21 Verito Whelan MD [address] [place] [address] Referring Pulmonary Disease 10/04/21 Nina Grigsby MD [address] [facility] [place] [address] Physician Hematology/Oncology 10/25/21 Patricia Miller, DRAWING IN MACHINE TENDER HELPER.ACCESS LEAD [address] [facility] [place] [address] Nurse Practitioner Hematology/Oncology 10/25/21 Denita Rai, KERRY [address] [facility] [place] [address] Specialty Federal Appellate Law Clerk Hematology/Oncology 10/25/21 Pre K Teacher Relationship Specialty Start Date End Date Christina Azul MD [address] [place] [address] PCP - General Family Practice 07/03/21 Sofie Diana MD [address] [place] [address] Primary Staff Physician Cardiology 07/03/21 Verito Whelan MD [address] [place], [place] [id number] Referring Pulmonary Disease 10/04/21 Nina Grigsby MD [address] [facility] [place] [address] Physician Hematology/Oncology 10/25/21 Patricia Miller, DRAWING IN MACHINE TENDER HELPER.ACCESS LEAD [address] [facility] [place] [address] Nurse Practitioner Hematology/Oncology 10/25/21 Denita Rai, KERRY [address] [facility] [place] [address] Specialty Federal Appellate Law Clerk Hematology/Oncology 10/25/21 Pre K Teacher Relationship Specialty Start Date End Date Christina Azul MD [address] [place] [address] PCP - General Family Practice 07/03/21 Sofie Diana MD [address] [place] [address] Primary Staff Physician Cardiology 07/03/21 Verito Whelan MD [address] [place] [address] Referring Pulmonary Disease 10/04/21 Nina Grigsby MD [address] [facility] [place] [address] Physician Hematology/Oncology 10/25/21 Patricia Miller, DRAWING IN MACHINE TENDER HELPER.ACCESS LEAD [address] [facility] [place] [address] Nurse Practitioner Hematology/Oncology 10/25/21 Denita Rai, RN [address] [facility] [place] [address] Specialty Federal Appellate Law Clerk Hematology/Oncology 10/25/21 Pre K Teacher Relationship Specialty Start Date End Date Christina Azul MD [address] [place] [address] PCP - General Family Practice 07/03/21 Sofie Diana MD [address] [place] [address] Primary Staff Physician Cardiology 07/03/21 Verito Whelan MD [address] [place] [address] Referring Pulmonary Disease 10/04/21 Nina Grigsby MD [address] [facility] [place] [address] Physician Hematology/Oncology 10/25/21 Patricia Miller, DRAWING IN MACHINE TENDER HELPER.ACCESS LEAD [address] [facility] [place] [address] Nurse Practitioner Hematology/Oncology 10/25/21 Denita Rai, RN [address] [facility] [address] Specialty Federal Appellate Law Clerk Hematology/Oncology 10/25/21 Pre K Teacher Relationship Specialty Start Date End Date Christina Azul MD [address] [place] [address] PCP - General Family Practice 07/03/21 Sofie Diana MD [address] [place] [address] Primary Staff Physician Cardiology 07/03/21 Verito Whelan MD [address] [place] [address] Referring Pulmonary Disease 10/04/21 Nina Grigsby MD [address] [facility] [place] [address] Physician Hematology/Oncology 10/25/21 Patricia Miller APRN.ACCESS LEAD [address] [facility] [place] [address] Nurse Practitioner Hematology/Oncology 10/25/21 Denita Rai, KERRY [address] [facility] [place] [address] Specialty Federal Appellate Law Clerk Hematology/Oncology 10/25/21 Pre K Teacher Relationship Specialty Start Date End Date Christina Azul MD [address] [place] [id number] PCP - General Family Practice 07/03/21 Sofie Diana MD [address] [place] [address] Primary Staff Physician Cardiology 07/03/21 Verito Whelan MD [address] [place] [address] Referring Pulmonary Disease 10/04/21 Nina Grigsby MD [address] [facility] [place] [address] Physician Hematology/Oncology 10/25/21 Patricia Miller, DRAWING IN MACHINE TENDER HELPER.[facility] [address] [facility] [place] [address] Nurse Practitioner Hematology/Oncology 10/25/21 Denita Rai, KERRY [address] [facility] [place] [address] Specialty Federal Appellate Law Clerk Hematology/Oncology 10/25/21 Pre K Teacher Relationship Specialty Start Date End Date Christina Azul MD [address] [place] [address] PCP - General Family Practice 07/03/21 Sofie Diana MD [address] [place] [address] Primary Staff Physician Cardiology 07/03/21 Verito Whelan MD [address] [place] [address] Referring Pulmonary Disease 10/04/21 Nina Grigsby MD [address] [facility] [place] [address] Physician Hematology/Oncology 10/25/21 Patricia Miller, DRAWING IN MACHINE TENDER HELPER.[address] [place] [address] Nurse Practitioner Hematology/Oncology 10/25/21 Denita Rai, KERRY [address] [facility] [place] [address] Specialty Federal Appellate Law Clerk Hematology/Oncology 10/25/21 Pre K Teacher Relationship Specialty Start Date End Date Christina Azul MD [address] [place] [address] PCP - General Family Practice 07/03/21 Sofie Diana MD [address] [place] [address] Primary Staff Physician Cardiology 07/03/21 Verito Whelan MD [address] [place] [address] Referring Pulmonary Disease 10/04/21 Nina Grigsby MD [address] [facility] [place] [address] Physician Hematology/Oncology 10/25/21 Patricia Miller, DRAWING IN MACHINE TENDER HELPER.ACCESS LEAD [address] [facility] [place] [address] Nurse Practitioner Hematology/Oncology 10/25/21 Denita Rai, KERRY [address] [place] [address] [place] [address] Specialty Federal Appellate Law Clerk Hematology/Oncology 10/25/21 Pre K Teacher Relationship Specialty Start Date End Date Christnia Azul MD [address] [place] [address] PCP - General [facility] Practice 07/03/21 Sofie Diana MD [address] [place] [address] Primary Staff Physician Cardiology 07/03/21 Verito Whelan MD [address] [place] [address] Referring Pulmonary Disease 10/04/21 Nina Grigsby MD [address] [facility] [place] [address] Physician Hematology/Oncology 10/25/21 Patricia Miller, DRAWING IN MACHINE TENDER HELPER.ACCESS LEAD [address] [place] [address] [place] [address] Nurse Practitioner Hematology/Oncology 10/25/21 Denita Rai, KERRY [address] [facility] [place] [address] Specialty Federal Appellate Law Clerk Hematology/Oncology 10/25/21 Pre K Teacher Relationship Specialty Start Date End Date Christina Azul MD [address] [place], [place] [id number] PCP - General Family Practice 07/03/21 Sofie Diana MD [address] [place], [place] [id number] Primary Staff Physician Cardiology 07/03/21 Verito Whelan MD [address] [place], [place] [address]446995 Referring Pulmonary Disease 10/04/21 iNna Grigsby MD [address] [facility] [place] [address] Physician Hematology/Oncology 10/25/21 Patricia Miller, OZZIE.[facility] [address] [facility] [place] [address] Nurse Practitioner Hematology/Oncology 10/25/21 Denita Rai, KERRY [address] [place] [address] [place] [address] Specialty Federal Appellate Law Clerk Hematology/Oncology 10/25/21 Pre K Teacher Relationship Specialty Start Date End Date Christina Azul MD [address] [place] [address] PCP - General Family Practice 07/03/21 Sofie Diana MD [address] [place] [address] Primary Staff Physician Cardiology 07/03/21 Verito Whelan MD [address] [place] [address] Referring Pulmonary Disease 10/04/21 Nina Grigsby MD [address] [facility] [place] [address] Physician Hematology/Oncology 10/25/21 Patricia Miller, DRAWING IN MACHINE TENDER HELPER.ACCESS LEAD [address] [facility] [place] [address] Nurse Practitioner Hematology/Oncology 10/25/21 Denita Rai, KERRY [address] [place] [address] [place] [address] Specialty Federal Appellate Law Clerk Hematology/Oncology 10/25/21 Pre K Teacher Relationship Specialty Start Date End Date Christina Azul MD [address] [place] [address] PCP - General Family Practice 07/03/21 Sofie Diana MD [address] [place] [address] Primary Staff Physician Cardiology 07/03/21 Verito Whelan MD [address] [place] [address] Referring Pulmonary Disease 10/04/21 Nina Grigsby MD [address] [facility] [address] Physician Hematology/Oncology 10/25/21 Patricia Miller, DRAWING IN MACHINE TENDER HELPER.ACCESS LEAD [address] [facility] [address] Nurse Practitioner Hematology/Oncology 10/25/21 Denita Rai, KERRY [address] [facility] [place] [address] Specialty Federal Appellate Law Clerk Hematology/Oncology 10/25/21 Pre K Teacher Relationship Specialty Start Date End Date Christina Azul MD [address] [place] [id number] PCP - General Family Practice 07/03/21 Sofie Diana MD [address] [place] [address] Primary Staff Physician Cardiology 07/03/21 Verito Whelan MD [address] [place] [address] Referring Pulmonary Disease 10/04/21 Nina Grigsby MD [address] [facility] [place] [address] Physician Hematology/Oncology 10/25/21 Patricia Miller, DRAWING IN MACHINE TENDER HELPER.ACCESS LEAD [address] [facility] [place] [address] Nurse Practitioner Hematology/Oncology 10/25/21 Denita Rai, RN [address] [facility] [place] [address] Specialty Federal Appellate Law Clerk Hematology/Oncology 10/25/21 Pre K Teacher Relationship Specialty Start Date End Date Christina Azul MD [address] [place] [id number] PCP - General Family Practice 07/03/21 Sofie Diana MD [address] [place] [address] Primary Staff Physician Cardiology 07/03/21 Verito Whelan MD [address] [place] [address] Referring Pulmonary Disease 10/04/21 Nina Grigsby MD [address] [facility] [place] [address] Physician Hematology/Oncology 10/25/21 Patricia Miller, DRAWING IN MACHINE TENDER HELPER.ACCESS LEAD [address] [facility] [place] [address] Nurse Practitioner Hematology/Oncology 10/25/21 Denita Rai, KERRY [address] [place] [address] [place] [address] Specialty Federal Appellate Law Clerk Hematology/Oncology 10/25/21 Team Status: Inactive Member Role Status Dates Cristy Swann PA-C Attending Provider Active PHYSICIAN NO FAMILY Primary Care Provider Active Team Status: Active Member Role Status Dates PHYSICIAN NO FAMILY Primary Care Provider Active Pre K Teacher Relationship Specialty Start Date End Date Christina Azul MD [address] [place] [address] PCP - General Family Practice 07/03/21 Sofie Diana MD [address] [place] [address] Primary Staff Physician Cardiology 07/03/21 Verito Whelan MD [address] [place] [address] Referring Pulmonary Disease 10/04/21 Nina Grigsby MD [address] [facility] [place] [address] Physician Hematology/Oncology 10/25/21 Patricia Miller, DRAWING IN MACHINE TENDER HELPER.ACCESS LEAD [address] [facility] [place] [address] Nurse Practitioner Hematology/Oncology 10/25/21 Denita Rai, KERRY [address] [place] [address] [place] [address] Specialty Federal Appellate Law Clerk Hematology/Oncology 10/25/21 Pre K Teacher Relationship Specialty Start Date End Date Christina Azul MD [address] [place] [address] PCP - General Family Practice 07/03/21 Sofie Diana MD [address] [place] [address] Primary Staff Physician Cardiology 07/03/21 Verito Whelan MD [address] [place], [place] [id number] Referring Pulmonary Disease 10/04/21 Nina Grigsby MD [address] [place] [address] [place] [address] Physician Hematology/Oncology 10/25/21 Patricia Miller, DRAWING IN MACHINE TENDER HELPER.ACCESS LEAD [address] [facility] [place] [address] Nurse Practitioner Hematology/Oncology 10/25/21 Denita Rai, RN [address] [facility] [place] [address] Specialty Federal Appellate Law Clerk Hematology/Oncology 10/25/21 Pre K Teacher Relationship Specialty Start Date End Date Christina Azul MD [address] [place] [id number] PCP - General Family Practice 07/03/21 Sofie Diana MD [address] [place] [address] Primary Staff Physician Cardiology 07/03/21 Verito Whelan MD [address] [place], [place] [id number] Referring Pulmonary Disease 10/04/21 Nina Grigsby MD [address] [facility] [place] [address] Physician Hematology/Oncology 10/25/21 Patricia Miller, DRAWING IN MACHINE TENDER HELPER.[address] [place] [address] Nurse Practitioner Hematology/Oncology 10/25/21 Denita Rai, KERRY [address] [facility] [place] [address] Specialty Federal Appellate Law Clerk Hematology/Oncology 10/25/21 Pre K Teacher Relationship Specialty Start Date End Date Christina Azul MD [address] [place] [address] PCP - General Family Practice 07/03/21 Sofie Diana MD [address] [place] [address] Primary Staff Physician Cardiology 07/03/21 Verito Whelan MD [address] [place] [address] Referring Pulmonary Disease 10/04/21 Nina Grigsby MD [address] [facility] [place] [address] Physician Hematology/Oncology 10/25/21 Patricia Miller, DRAWING IN MACHINE TENDER HELPER.[address] [place] [address] Nurse Practitioner Hematology/Oncology 10/25/21 Denita Rai, KERRY [address] [facility] [address] Specialty Federal Appellate Law Clerk Hematology/Oncology 10/25/21 Pre K Teacher Relationship Specialty Start Date End Date Christina Azul MD [address] [place] [address] PCP - General Family Medicine 07/03/21 Sofie Diana MD [address] [place] [address] Primary Staff Physician Cardiology 07/03/21 Verito Whelan MD [address] [place] [address] Referring Pulmonary Disease 10/04/21 Nina Grigsby MD [address] [facility] [place] [address] Physician Hematology/Oncology 10/25/21 Patricia Miller, OZZIE.ACCESS LEAD [address] [facility] [place] [address] Nurse Practitioner Hematology/Oncology 10/25/21 Denita Rai, RN [address] [facility] [place] [address] Specialty Federal Appellate Law Clerk Hematology/Oncology 10/25/21 Pre K Teacher Relationship Specialty Start Date End Date Christina Azul MD [address] [place] [address] PCP - General Family Medicine 07/03/21 Sofie Diana MD [address] [place] [address] Primary Staff Physician Cardiology 07/03/21 Verito Whelan MD [address] [place] [address] Referring Pulmonary Disease 10/04/21 Nina Grigsby MD [address] [facility] [place] [address] Physician Hematology/Oncology 10/25/21 Patricia Miller, DRAWING IN MACHINE TENDER HELPER.ACCESS LEAD [address] [facility] [place] [address] Nurse Practitioner Hematology/Oncology 10/25/21 Denita Rai, RN [address] [facility] [place] [address] Specialty Federal Appellate Law Clerk Hematology/Oncology 10/25/21 Pre K Teacher Relationship Specialty Start Date End Date Christina Azul MD [address] [place] [place] [address] PCP - General Family Medicine 07/03/21 Sofie Diana MD [address] [place] [address] Primary Staff Physician Cardiology 07/03/21 Verito Whelan MD [address] [place] [address] Referring Pulmonary Disease 10/04/21 Nina Grigsby MD [address] [facility] [place] [address] Physician Hematology/Oncology 10/25/21 Patricia Miller, DRAWING IN MACHINE TENDER HELPER.ACCESS LEAD [address] [facility] [place] [address] Nurse Practitioner Hematology/Oncology 10/25/21 Denita Rai, KERRY [address] [facility] [place] [address] Specialty Federal Appellate Law Clerk Hematology/Oncology 10/25/21 Pre K Teacher Relationship Specialty Start Date End Date Christina Azul MD [address] [place] [address] PCP - General Family Medicine 07/03/21 Sofie Diana MD [address] [place] [address] Primary Staff Physician Cardiology 07/03/21 Verito Whelan MD [address] [place] [address] Referring Pulmonary Disease 10/04/21 Nina Grigsby MD [address] [facility] [place] [address] Physician Hematology/Oncology 10/25/21 Patricia Miller, DRAWING IN MACHINE TENDER HELPER.ACCESS LEAD [address] [facility] [place] [address] Nurse Practitioner Hematology/Oncology 10/25/21 Denita Rai, KERRY [address] [facility] [place] [address] Specialty Federal Appellate Law Clerk Hematology/Oncology 10/25/21 Pre K Teacher Relationship Specialty Start Date End Date Christina Azul MD [address] [place] [address] PCP - General Family Medicine 07/03/21 Sofie Diana MD [address] [place] [address] Primary Staff Physician Cardiology 07/03/21 Verito Whelan MD [address] [place] [address] Referring Pulmonary Disease 10/04/21 Nina Grigsby MD [address] [facility] [place] [address] Physician Hematology/Oncology 10/25/21 Patricia Miller, DRAWING IN MACHINE TENDER HELPER.ACCESS LEAD [address] [facility] [place] [address] Nurse Practitioner Hematology/Oncology 10/25/21 Denita Rai, KERRY [address] [facility] [place] [address] Specialty Federal Appellate Law Clerk Hematology/Oncology 10/25/21 Pre K Teacher Relationship Specialty Start Date End Date Christina Azul MD [address] [place] [address] PCP - General Family Medicine 07/03/21 Sofie Diana MD [address] [place] [address] Primary Staff Physician Cardiology 07/03/21 Verito Whelan MD [address] [place] [address] Referring Pulmonary Disease 10/04/21 Nina Grigsby MD [address] [facility] [place] [address] Physician Hematology/Oncology 10/25/21 Patricia Miller APRN.ACCESS LEAD [address] [facility] [place] [address] Nurse Practitioner Hematology/Oncology 10/25/21 Denita Rai, KERRY [address] [facility] [place] [address] Specialty Federal Appellate Law Clerk Hematology/Oncology 10/25/21 Pre K Teacher Relationship Specialty Start Date End Date Christina Azul MD [address] [place] [address] PCP - General Family Medicine 07/03/21 Sofie Diana MD [address] [place] [address] Primary Staff Physician Cardiology 07/03/21 Verito Whelan MD [address] [place] [address] Referring Pulmonary Disease 10/04/21 Nina Grigsby MD [address] [facility] [place] [address] Physician Hematology/Oncology 10/25/21 Patricia Miller, DRAWING IN MACHINE TENDER HELPER.ACCESS LEAD [address] [facility] [place] [address] Nurse Practitioner Hematology/Oncology 10/25/21 Denita Rai, KERRY [address] [facility] [place] [address] Specialty Federal Appellate Law Clerk Hematology/Oncology 10/25/21 Pre K Teacher Relationship Specialty Start Date End Date Christina Azul MD [address] [place] [address] PCP - General Family Medicine 07/03/21 Sofie Diana MD [address] [place] [address] Primary Staff Physician Cardiology 07/03/21 Verito Whelan MD [address] [place] [address] Referring Pulmonary Disease 10/04/21 Nina Grigsby MD [address] [facility] [place] [address] Physician Hematology/Oncology 10/25/21 Patricia Millre, DRAWING IN MACHINE TENDER HELPER.ACCESS LEAD [address] [facility] [address] Nurse Practitioner Hematology/Oncology 10/25/21 Denita Rai, KERRY [address] [facility] [place] [address] Specialty Federal Appellate Law Clerk Hematology/Oncology 10/25/21 Pre K Teacher Relationship Specialty Start Date End Date Christina Azul MD [address] [place] [id number] PCP - General Family Medicine 07/03/21 Sofie Diana MD [address] [place] [address] Primary Staff Physician Cardiology 07/03/21 Verito Whelan MD [address] [place] [address] Referring Pulmonary Disease 10/04/21 Nina Grigsby MD [address] [place] [address] [place] [address] Physician Hematology/Oncology 10/25/21 Patricia Miller, DRAWING IN MACHINE TENDER HELPER.ACCESS LEAD [address] [facility] [place] [address] Nurse Practitioner Hematology/Oncology 10/25/21 Denita Rai, RN [address] [place] [address] [place] [address] Specialty Federal Appellate Law Clerk Hematology/Oncology 10/25/21 Pre K Teacher Relationship Specialty Start Date End Date Christina Azul MD [address] [place] [id number] PCP - General Family Medicine 07/03/21 Sofie Diana MD [address] [place] [address] Primary Staff Physician Cardiology 07/03/21 Verito Whelan MD [address] [place] [address] Referring Pulmonary Disease 10/04/21 Nina Grigsby MD [address] [place] [address] [place] [address] Physician Hematology/Oncology 10/25/21 Patricia Miller, DRAWING IN MACHINE TENDER HELPER.[address] [place] [address] Nurse Practitioner Hematology/Oncology 10/25/21 Denita Rai, KERRY [address] [place] [address] [place] [address] Specialty Federal Appellate Law Clerk Hematology/Oncology 10/25/21 Pre K Teacher Relationship Specialty Start Date End Date Christina Azul MD [address] [place] [address] PCP - General Family Medicine 07/03/21 Sofie Diana MD [address] [place] [address] Primary Staff Physician Cardiology 07/03/21 Verito Whelan MD [address] [place] [address] Referring Pulmonary Disease 10/04/21 Nina Grigsby MD [address] [facility] [place] [address] Physician Hematology/Oncology 10/25/21 Patricia Miller, DRAWING IN MACHINE TENDER HELPER.[address] [place] [address] Nurse Practitioner Hematology/Oncology 10/25/21 Denita Rai, KERRY [address] [place] [address] [place] [address] Specialty Federal Appellate Law Clerk Hematology/Oncology 10/25/21 Pre K Teacher Relationship Specialty Start Date End Date Christina Azul MD [address] [place] [address] PCP - General Family Medicine 07/03/21 Sofie Diana MD [address] [place] [address] Primary Staff Physician Cardiology 07/03/21 Verito Whelan MD [address] [place], [place] 3[address] Referring Pulmonary Disease 10/04/21 Nina Grigsby MD [address] [facility] [place] [address] Physician Hematology/Oncology 10/25/21 Patricia Miller, DRAWING IN MACHINE TENDER HELPER.ACCESS LEAD [address] [facility] [place] [address] Nurse Practitioner Hematology/Oncology 10/25/21 Denita Rai, KERRY [address] [facility] [place] [address] Specialty Federal Appellate Law Clerk Hematology/Oncology 10/25/21 Pre K Teacher Relationship Specialty Start Date End Date Christina Azul MD [address] [place] [address] PCP - General Family Medicine 07/03/21 Sofie Diana MD [address] [place] [address] Primary Staff Physician Cardiology 07/03/21 Verito Whelan MD [address] [place] [address] Referring Pulmonary Disease 10/04/21 Nina Grigsby MD [address] [facility] [place] [address] Physician Hematology/Oncology 10/25/21 Patricia Miller, DRAWING IN MACHINE TENDER HELPER.[address] [place] [address] Nurse Practitioner Hematology/Oncology 10/25/21 Denita Rai, KERRY [address] [place] [address] [place] [address] Specialty Federal Appellate Law Clerk Hematology/Oncology 10/25/21 Pre K Teacher Relationship Specialty Start Date End Date Christina Azul MD [address] [place] [id number] PCP - General Family Medicine 07/03/21 Sofie Diana MD [address] [place], [place] [id number] Primary Staff Physician Cardiology 07/03/21 Verito Whelan MD [address] [place], [place] [id number] Referring Pulmonary Disease 10/04/21 Nina Grigsby MD [address] [facility] [place] [address] Physician Hematology/Oncology 10/25/21 Patricia Miller, DRAWING IN MACHINE TENDER HELPER.[address] [place] [address] Nurse Practitioner Hematology/Oncology 10/25/21 Denita Rai, RN [address] [place] [address] [place] [address] Specialty Federal Appellate Law Clerk Hematology/Oncology 10/25/21 Pre K Teacher Relationship Specialty Start Date End Date Christina Azul MD [address] [place] [id number] PCP - General Family Medicine 07/03/21 Sofie Diana MD [address] [place] [address] Primary Staff Physician Cardiology 07/03/21 Verito Whelan MD [address] [place] [address] Referring Pulmonary Disease 10/04/21 Nina Grigsby MD [address] [facility] [place] [address] Physician Hematology/Oncology 10/25/21 Patricia Miller, DRAWING IN MACHINE TENDER HELPER.ACCESS LEAD [address] [facility] [place] [address] Nurse Practitioner Hematology/Oncology 10/25/21 Denita Rai, RN [address] [place] [address] [place] [address] Specialty Federal Appellate Law Clerk Hematology/Oncology 10/25/21 Pre K Teacher Relationship Specialty Start Date End Date Christina Azul MD [address] [place] [address] PCP - General Family Medicine 07/03/21 Sofie Diana MD [address] [place] [address] Primary Staff Physician Cardiology 07/03/21 Verito Whelan MD [address] [place] [address] Referring Pulmonary Disease 10/04/21 Nina Grigsby MD [address] [facility] [place] [address] Physician Hematology/Oncology 10/25/21 Patricia Miller, DRAWING IN MACHINE TENDER HELPER.ACCESS LEAD [address] [facility] [place] [address] Nurse Practitioner Hematology/Oncology 10/25/21 Denita Rai, RN [address] [facility] [place] [address] Specialty Federal Appellate Law Clerk Hematology/Oncology 10/25/21 Pre K Teacher Relationship Specialty Start Date End Date Christina Azul MD [address] [place] [address] PCP - General Family Medicine 07/03/21 Sofie Diana MD [address] [place] [address] Primary Staff Physician Cardiology 07/03/21 Verito Whelan MD [address] [place] [address] Referring Pulmonary Disease 10/04/21 Nina Grigsby MD [address] [facility] [place] [address] Physician Hematology/Oncology 10/25/21 Patricia Miller, DRAWING IN MACHINE TENDER HELPER.ACCESS LEAD [address] [facility] [place] [address] Nurse Practitioner Hematology/Oncology 10/25/21 Denita Rai, KERRY [address] [facility] [place] [address] Specialty Federal Appellate Law Clerk Hematology/Oncology 10/25/21 Pre K Teacher Relationship Specialty Start Date End Date Christina Azul MD [address] [place] [address] PCP - General Family Medicine 07/03/21 Sofie Diana MD [address] [place] [address] Primary Staff Physician Cardiology 07/03/21 Verito Whelan MD [address] [place] [address] Referring Pulmonary Disease 10/04/21 Nina Grigsby MD [address] [facility] [place] [address] Physician Hematology/Oncology 10/25/21 Patricia Miller, DRAWING IN MACHINE TENDER HELPER.ACCESS LEAD [address] [facility] [place] [address] Nurse Practitioner Hematology/Oncology 10/25/21 Denita Rai, KERRY [address] [facility] [place] [address] Specialty Federal Appellate Law Clerk Hematology/Oncology 10/25/21 Pre K Teacher Relationship Specialty Start Date End Date Christina Azul MD [address] [place] [address] PCP - General Family Medicine 07/03/21 Sofie Diana MD [address] [place] [address] Primary Staff Physician Cardiology 07/03/21 Verito Whelan MD [address] [place] [address] Referring Pulmonary Disease 10/04/21 Nina Grigsby MD [address] [facility] [place] [address] Physician Hematology/Oncology 10/25/21 Patricia Miller, DRAWING IN MACHINE TENDER HELPER.ACCESS LEAD [address] [facility] [place] [address] Nurse Practitioner Hematology/Oncology 10/25/21 Denita Rai, KERRY [address] [facility] [place] [address] Specialty Federal Appellate Law Clerk Hematology/Oncology 10/25/21 Pre K Teacher Relationship Specialty Start Date End Date Christina Azul MD [address] [place] [address] PCP - General Family Medicine 07/03/21 Sofie Diana MD [address] [place] [address] Primary Staff Physician Cardiology 07/03/21 Verito Whelan MD [address] [place] [address] Referring Pulmonary Disease 10/04/21 Nina Grigsby MD [address] [facility] [place] [address] Physician Hematology/Oncology 10/25/21 Patricia Miller APRN.ACCESS LEAD [address] [facility] [place] [address] Nurse Practitioner Hematology/Oncology 10/25/21 Denita Rai, KERRY [address] [facility] [place] [address] Specialty Federal Appellate Law Clerk Hematology/Oncology 10/25/21 Pre K Teacher Relationship Specialty Start Date End Date Christina Azul MD [address] [place] [address] PCP - General Family Medicine 07/03/21 Sofie Diana MD [address] [place] [address] Primary Staff Physician Cardiology 07/03/21 Verito Whelan MD [address] [place] [address] Referring Pulmonary Disease 10/04/21 Nina Grigsby MD [address] [facility] [place] [address] Physician Hematology/Oncology 10/25/21 Patricia Miller, DRAWING IN MACHINE TENDER HELPER.ACCESS LEAD [address] [facility] [place] [address] Nurse Practitioner Hematology/Oncology 10/25/21 Denita Rai, RN [address] [place] [address] [place] [address] Specialty Federal Appellate Law Clerk Hematology/Oncology 10/25/21 Pre K Teacher Relationship Specialty Start Date End Date Christina Azul MD [address] [place] [address] PCP - General Family Medicine 07/03/21 Sofie Diana MD [address] [place] [address] Primary Staff Physician Cardiology 07/03/21 Verito [place]helan MD [address] [place] [address] Referring Pulmonary Disease 10/04/21 Nina Grigsby MD [address] [facility] [place] [address] Physician Hematology/Oncology 10/25/21 Patricia Miller, DRAWING IN MACHINE TENDER HELPER.[facility] [address] [place] [address] Nurse Practitioner Hematology/Oncology 10/25/21 Denita Rai, KERRY [address] [place] [address] Specialty Federal Appellate Law Clerk Hematology/Oncology 10/25/21 Pre K Teacher Relationship Specialty Start Date End Date Christina Azul MD [address] [place] [address] PCP - General Family Medicine 07/03/21 Sofie Diana MD [address] [place] [address] Primary Staff Physician Cardiology 07/03/21 Verito Whelan MD [address] [place] [address] Referring Pulmonary Disease 10/04/21 Nina Grigsby MD [address] [facility] [facility] [place] [address] Physician Hematology/Oncology 10/25/21 Patricia Milelr, DRAWING IN MACHINE TENDER HELPER.ACCESS LEAD [address] [facility] [place] [address] Nurse Practitioner Hematology/Oncology 10/25/21 Denita Rai, KERRY [address] [place] [address] [place] [address] Specialty Federal Appellate Law Clerk Hematology/Oncology 10/25/21 Pre K Teacher Relationship Specialty Start Date End Date Christina Azul MD [address] [place] [address] PCP - General Family Medicine 07/03/21 Sofie Diana MD [address] [place] [address] Primary Staff Physician Cardiology 07/03/21 Verito Whelan MD [address] [place] [address] Referring Pulmonary Disease 10/04/21 Nina Grigsby MD [address] [facility] [place] [address] Physician Hematology/Oncology 10/25/21 Patricia Miller, DRAWING IN MACHINE TENDER HELPER.ACCESS LEAD [address] [place] [address] [place] [address] Nurse Practitioner Hematology/Oncology 10/25/21 Denita Rai, KERRY [address] [facility] [place] [address] Specialty Federal Appellate Law Clerk Hematology/Oncology 10/25/21 Pre K Teacher Relationship Specialty Start Date End Date Christina Azul MD [address] [place] [address] PCP - General Family Medicine 07/03/21 Sofie Diana MD [address] [place] [address] Primary Staff Physician Cardiology 07/03/21 Verito Whelan MD [address] [place], [place] [id number] Referring Pulmonary Disease 10/04/21 Nina Grigsby MD [address] [facility] [place] [address] Physician Hematology/Oncology 10/25/21 Patricia Miller, OZZIE.ACCESS LEAD [address] [place] [address] Nurse Practitioner Hematology/Oncology 10/25/21 Denita Rai, KERRY [address] [place] [address] [place] [address] Specialty Federal Appellate Law Clerk Hematology/Oncology 10/25/21 Pre K Teacher Relationship Specialty Start Date End Date Christina Azul MD [address] [place] [address] PCP - General Family Medicine 07/03/21 Sofie Diana MD [address] [place] [address] Primary Staff Physician Cardiology 07/03/21 Verito Whelan MD [address] [place] [address] Referring Pulmonary Disease 10/04/21 Nina Grigsby MD [address] [facility] [place] [address] Physician Hematology/Oncology 10/25/21 Patricia Miller, DRAWING IN MACHINE TENDER HELPER.ACCESS LEAD [address] [facility] [place] [address] Nurse Practitioner Hematology/Oncology 10/25/21 Denita Rai, KERRY [address] [place] [address] [place] [address] Specialty Federal Appellate Law Clerk Hematology/Oncology 10/25/21 Pre K Teacher Relationship Specialty Start Date End Date Christina Azul MD [address] [place] [address] PCP - General Family Medicine 07/03/21 Sofie Diana MD [address] [place] [address] Primary Staff Physician Cardiology 07/03/21 Verito Whelan MD [address] [place] [address] Referring Pulmonary Disease 10/04/21 Nina Grigsby MD [address] [facility] [place] [address] Physician Hematology/Oncology 10/25/21 Patricia Miller, DRAWING IN MACHINE TENDER HELPER.ACCESS LEAD [address] [facility] [place] [address] Nurse Practitioner Hematology/Oncology 10/25/21 Denita Rai, KERRY [address] [facility] [place] [address] Specialty Federal Appellate Law Clerk Hematology/Oncology 10/25/21 Team Status: Active Member Role Status Dates Christina Azul MD Primary Care Provider Active Team Status: Inactive Member Role Status Dates Christina Azul MD Primary Care Provider Active Sapna Angulo APRN Emergency Provider Active Pre K Teacher Relationship Specialty Start Date End Date Christina Azul MD [address] [place], [place] [id number] PCP - General Family Medicine 07/03/21 Sofie Diana MD [address] [place], [place] 8075195 Primary Staff Physician Cardiology 07/03/21 Verito Whelan MD [address] [place], [place] 1724695 Referring Pulmonary Disease 10/04/21 Nina Grigsby MD [address] [facility] [address] [place] [id number] Physician Hematology/Oncology 10/25/21 Patricia Miller APRN.ACCESS LEAD [address] [facility] [address] [place] [id number] Nurse Practitioner Hematology/Oncology 10/25/21 Denita Rai, KERRY [address] [facility] [address] [place] [id number] Specialty Federal Appellate Law Clerk Hematology/Oncology 10/25/21 Pre K Teacher Relationship Specialty Start Date End Date Christina Azul MD [address] [place] [address] PCP - General Family Medicine 07/03/21 Sofie Diana MD [address] [place], [place] [id number] Primary Staff Physician Cardiology 07/03/21 Verito Whelan MD [address] [place] [address] Referring Pulmonary Disease 10/04/21 Nina Grigsby MD [address] [facility] [place] [address] Physician Hematology/Oncology 10/25/21 Patricia Miller, DRAWING IN MACHINE TENDER HELPER.ACCESS LEAD [address] [facility] [address] Nurse Practitioner Hematology/Oncology 10/25/21 Denita Rai, KERRY [address] [place] [address] [place] [address] Specialty Federal Appellate Law Clerk Hematology/Oncology 10/25/21 Minna Madrigal LSW Flight Communications Specialist 01/08/23 Pre K Teacher Relationship Specialty Start Date End Date Christina Azul MD [address] [place] [address] PCP - General Family Medicine 07/03/21 Sofie Diana MD [address] [place] [address] Primary Staff Physician Cardiology 07/03/21 Verito Whelan MD [address] [place] [address] Referring Pulmonary Disease 10/04/21 Nina Grigsby MD [address] [facility] [place] [address] Physician Hematology/Oncology 10/25/21 Patricia Miller, DRAWING IN MACHINE TENDER HELPER.ACCESS LEAD [address] [facility] [address] Nurse Practitioner Hematology/Oncology 10/25/21 Denita Rai, KERRY [address] [facility] [place] [address] Specialty Federal Appellate Law Clerk Hematology/Oncology 10/25/21 Minna Madrigal LSW Flight Communications Specialist 01/08/23 Pre K Teacher Relationship Specialty Start Date End Date Christina Azul MD [address] [place] [address] PCP - General Family Medicine 07/03/21 Sofie Diana MD [address] [place] [address] Primary Staff Physician Cardiology 07/03/21 Verito Whelan MD [address] [place] [address] Referring Pulmonary Disease 10/04/21 Nina Grigsby MD [address] [facility] [place] [address] Physician Hematology/Oncology 10/25/21 Patricia Miller, DRAWING IN MACHINE TENDER HELPER.ACCESS LEAD [address] [facility] [place] [address] Nurse Practitioner Hematology/Oncology 10/25/21 Denita Rai RN [address] [place] [address] [place] [address] Specialty Federal Appellate Law Clerk Hematology/Oncology 10/25/21 iMnna Madrigal LSW Flight Communications Specialist 01/08/23 Pre K Teacher Relationship Specialty Start Date End Date Christina Azul MD [address] [place] [address] PCP - General Family Medicine 07/03/21 Sofie Diana MD [address] [place] [address] Primary Staff Physician Cardiology 07/03/21 Verito Whelan MD [address] [place], [place] [id number] Referring Pulmonary Disease 10/04/21 Nina Grigsby MD [address] [place] [address] [place] [address] Physician Hematology/Oncology 10/25/21 Patricia Miller, DRAWING IN MACHINE TENDER HELPER.ACCESS LEAD [address] [facility] [place] [address] Nurse Practitioner Hematology/Oncology 10/25/21 Denita Rai, KERRY [address] [place] [address] [place] [address] Specialty Federal Appellate Law Clerk Hematology/Oncology 10/25/21 Minna Madrigal LSW Flight Communications Specialist 01/08/23 Pre K Teacher Relationship Specialty Start Date End Date Christina Azul MD [address] [place] [address] PCP - General Family Medicine 07/03/21 Sofie Diana MD [address] [place] [address] Primary Staff Physician Cardiology 07/03/21 Verito Whelan MD [address] [place] [address] Referring Pulmonary Disease 10/04/21 Nina Grigsby MD [address] [place] [address] [place] [address] Physician Hematology/Oncology 10/25/21 Patricia Miller, DRAWING IN MACHINE TENDER HELPER.ACCESS LEAD [address] [place] [address] [place] [address] Nurse Practitioner Hematology/Oncology 10/25/21 Denita Rai, KERRY [address] [facility] [place] [address] Specialty Federal Appellate Law Clerk Hematology/Oncology 10/25/21 Minna Madrigal LSW Flight Communications Specialist 01/08/23 Pre K Teacher Relationship Specialty Start Date End Date Christina Azul MD [address] [place] [id number] PCP - General Family Medicine 07/03/21 Sofie Diana MD [address] [place] [id number] Primary Staff Physician Cardiology 07/03/21 Verito Whelan MD [address] [place] [phone] Referring Pulmonary Disease 10/04/21 Nina Grigsby MD [address] [place] [address] [place] [address] Physician Hematology/Oncology 10/25/21 Patricia Miller APRN.ACCESS LEAD [address] [facility] [place] [address] Nurse Practitioner Hematology/Oncology 10/25/21 Denita Rai RN [address] [facility] [place] [address] Specialty Federal Appellate Law Clerk Hematology/Oncology 10/25/21 Minna Madrigal LSW Flight Communications Specialist 01/08/23 Pre K Teacher Relationship Specialty Start Date End Date Christina Azul MD [address] [place] [id number] PCP - General Family Medicine 07/03/21 Sofie Diana MD [address] [place] [address] Primary Staff Physician Cardiology 07/03/21 Verito Whelan MD [address] [place] [address] Referring Pulmonary Disease 10/04/21 Nina Grigsby MD [address] [facility] [place] [address] Physician Hematology/Oncology 10/25/21 Patricia Miller APRN.ACCESS LEAD [address] [facility] [place] [address] Nurse Practitioner Hematology/Oncology 10/25/21 Denita Rai, KERRY [address] [facility] [place] [address] Specialty Federal Appellate Law Clerk Hematology/Oncology 10/25/21 Minna Madrigal LSW Flight Communications Specialist 01/08/23 Pre K Teacher Relationship Specialty Start Date End Date Christina Azul MD [address] [place] [address] PCP - General Family Medicine 07/03/21 Sofie Diana MD [address] [place] [address] Primary Staff Physician Cardiology 07/03/21 Verito Whelan MD [address] [place] [address] Referring Pulmonary Disease 10/04/21 Nina Grigsby MD [address] [facility] [place] [address] Physician Hematology/Oncology 10/25/21 Patricia Miller, DRAWING IN MACHINE TENDER HELPER.ACCESS LEAD [address] [facility] [address] Nurse Practitioner Hematology/Oncology 10/25/21 Denita aRi, KERRY [address] [facility] [address] Specialty Federal Appellate Law Clerk Hematology/Oncology 10/25/21 Minna Madrigal LSW Flight Communications Specialist 01/08/23 Pre K Teacher Relationship Specialty Start Date End Date Christina Azul MD [address] [place] [address] PCP - General Family Medicine 07/03/21 Sofie Diana MD [address] [place] [address] Primary Staff Physician Cardiology 07/03/21 Verito Whelan MD [address] [place] [address] Referring Pulmonary Disease 10/04/21 Nina Grigsby MD [address] [facility] [address] Physician Hematology/Oncology 10/25/21 Patricia Miller, DRAWING IN MACHINE TENDER HELPER.ACCESS LEAD [address] [facility] [address] Nurse Practitioner Hematology/Oncology 10/25/21 Denita Rai, KERRY [address] [facility] [place] [address] Specialty Federal Appellate Law Clerk Hematology/Oncology 10/25/21 Minna Madrigal LSW Flight Communications Specialist 01/08/23 Pre K Teacher Relationship Specialty Start Date End Date Christina Azul MD [address] [place] [address] PCP - General Family Medicine 07/03/21 Sofie Diana MD [address] [place], [place] [id number] Primary Staff Physician Cardiology 07/03/21 Verito Whelan MD [address] [place] [address] Referring Pulmonary Disease 10/04/21 Nina Grigsby MD [address] [place] [address] [place] [address] Physician Hematology/Oncology 10/25/21 Patricia Miller APRN.ACCESS LEAD [address] [place] [address] [place] [address] Nurse Practitioner Hematology/Oncology 10/25/21 Denita Rai, KERRY [address] [facility] [place] [address] Specialty Federal Appellate Law Clerk Hematology/Oncology 10/25/21 Minna Madrigal LSW Flight Communications Specialist 01/08/23 Pre K Teacher Relationship Specialty Start Date End Date Christina Azul MD [address] [place] [address] PCP - General Family Medicine 07/03/21 Sofie Diana MD [address] [place] [address] Primary Staff Physician Cardiology 07/03/21 Verito Whelan MD [address] [place] [address] Referring Pulmonary Disease 10/04/21 Nina Grigsby MD [address] [place] [address] [address] [place] [phone] Physician Hematology/Oncology 10/25/21 Patricia Miller APRN.[facility] [address] [place] [address] [address] [place] [phone] Nurse Practitioner Hematology/Oncology 10/25/21 Denita Rai, KERRY [address] [place] [address] [address] [place] [phone] Specialty Federal Appellate Law Clerk Hematology/Oncology 10/25/21 Minna Madrigal LSW Flight Communications Specialist 01/08/23 Pre K Teacher Relationship Specialty Start Date End Date Christina Azul MD [address] [place] [id number] PCP - General Family Medicine 07/03/21 Sofie Diana MD [address] [place] [address] Primary Staff Physician Cardiology 07/03/21 Verito Whelan MD [address] [place] [phone] Referring Pulmonary Disease 10/04/21 Nina Grigsby MD [address] [place] [address] [place] [address] Physician Hematology/Oncology 10/25/21 Patricia Miller, DRAWING IN MACHINE TENDER HELPER.ACCESS LEAD [address] [place] [address] [place] [address] Nurse Practitioner Hematology/Oncology 10/25/21 Denita Rai, RN [address] [facility] [place] [address] Specialty Federal Appellate Law Clerk Hematology/Oncology 10/25/21 Minna Madrigal LSW Flight Communications Specialist 01/08/23 Pre K Teacher Relationship Specialty Start Date End Date Christina Azul MD [address] [place] [address] PCP - General Family Medicine 07/03/21 Sofie Diana MD [address] [place] [address] Primary Staff Physician Cardiology 07/03/21 Verito Whelan MD [address] [place] [address] Referring Pulmonary Disease 10/04/21 Nina Grigsby MD [address] [place] [address] [place] [address] Physician Hematology/Oncology 10/25/21 Patricia Miller, DRAWING IN MACHINE TENDER HELPER.ACCESS LEAD [address] [facility] [place] [address] Nurse Practitioner Hematology/Oncology 10/25/21 Denita Rai, RN [address] [facility] [address] Specialty Federal Appellate Law Clerk Hematology/Oncology 10/25/21 Minna Madrigal LSW Flight Communications Specialist 01/08/23 Pre K Teacher Relationship Specialty Start Date End Date Christina Azul MD [address] [place] [address] PCP - General Family Medicine 07/03/21 Sofie Diana MD [address] [place], [place] 3812795 Primary Staff Physician Cardiology 07/03/21 Verito Whelan MD [address] [place], [place] [phone] Referring Pulmonary Disease 10/04/21 Nina Grigsby MD [address] [facility] [place] [address] Physician Hematology/Oncology 10/25/21 Patricia Miller APRN.ACCESS LEAD [address] [facility] [place] [address] Nurse Practitioner Hematology/Oncology 10/25/21 Denita Rai, KERRY [address] [facility] [place] [address] Specialty Federal Appellate Law Clerk Hematology/Oncology 10/25/21 Minna Madrigal LSW Flight Communications Specialist 01/08/23 Pre K Teacher Relationship Specialty Start Date End Date Christina Azul MD [address] [place] [address] PCP - General Family Medicine 07/03/21 Sofie Diana MD [address] [place], [place] 0637895 Primary Staff Physician Cardiology 07/03/21 Verito Whelan MD [address] [place], [place] 5755995 Referring Pulmonary Disease 10/04/21 Nina Grigsby MD [address] [facility] [address] Physician Hematology/Oncology 10/25/21 Patricia Miller, DRAWING IN MACHINE TENDER HELPER.ACCESS LEAD [address] [facility] [address] Nurse Practitioner Hematology/Oncology 10/25/21 Denita Rai, KERRY [address] [facility] [address] [place], [place] 3438[address] Specialty Federal Appellate Law Clerk Hematology/Oncology 10/25/21 Minna Madrigal LSW Flight Communications Specialist 01/08/23 Pre K Teacher Relationship Specialty Start Date End Date Christina Azul MD [address] [place] [address] PCP - General Family Medicine 07/03/21 Sofie Diana MD [address] [place] [address] Primary Staff Physician Cardiology 07/03/21 Verito Whelan MD [address] [place] [address] Referring Pulmonary Disease 10/04/21 Nina Grigsby MD [address] [facility] [place] [address] Physician Hematology/Oncology 10/25/21 Patricia Miller, DRAWING IN MACHINE TENDER HELPER.ACCESS LEAD [address] [place] [address] [place] [address] Nurse Practitioner Hematology/Oncology 10/25/21 Denita Rai, KERRY [address] [place] [address] [place] [address] Specialty Federal Appellate Law Clerk Hematology/Oncology 10/25/21 Minna Madrigal LSW Flight [employer] Specialist 01/08/23 Pre K Teacher Relationship Specialty Start Date End Date Christina Azul MD [address] [place] [address] PCP - General Family Medicine 07/03/21 Sofie Diana MD [address] [place] [address] Primary Staff Physician Cardiology 07/03/21 Verito Whelan MD [address] [place] [address] Referring Pulmonary Disease 10/04/21 Nina Grigsby MD [address] [place] [address] [place] [address] Physician Hematology/Oncology 10/25/21 Patricia Miller APRN.ACCESS LEAD [address] [place] [address] [place] [address] Nurse Practitioner Hematology/Oncology 10/25/21 Denita Rai, KERRY [address] [facility] [place] [address] Specialty Federal Appellate Law Clerk Hematology/Oncology 10/25/21 Minna Madrigal LSW Flight [employer] Specialist 01/08/23 Pre K Teacher Relationship Specialty Start Date End Date Christina Azul MD [address] [place] [id number] PCP - General Family Medicine 07/03/21 Sofie Diana MD [address] [place], [place] 2291495 Primary Staff Physician Cardiology 07/03/21 Verito Whelan MD [address] [place], [place] [phone] Referring Pulmonary Disease 10/04/21 Nina Grigsby MD [address] [place] [address] [address] [place] [phone] Physician Hematology/Oncology 10/25/21 Patricia Miller APRN.ACCESS LEAD [address] [place] [address] [address] [place] [phone] Nurse Practitioner Hematology/Oncology 10/25/21 Denita Rai, KERRY [address] [place] [address] [place] [address] Specialty Federal Appellate Law Clerk Hematology/Oncology 10/25/21 Minna Madrigal LSW Flight [employer] Specialist 01/08/23 Pre K Teacher Relationship Specialty Start Date End Date Christina Azul MD [address] [place] [address] PCP - General Family Medicine 07/03/21 Sofie Diana MD [address] [place], [place] [phone] Primary Staff Physician Cardiology 07/03/21 Verito Whelan MD [address] [place] [address] Referring Pulmonary Disease 10/04/21 Nina Grigsby MD [address] [place] [address] [place] [address] Physician Hematology/Oncology 10/25/21 Patricia Miller, DRAWING IN MACHINE TENDER HELPER.ACCESS LEAD [address] [place] [address] [place] [address] Nurse Practitioner Hematology/Oncology 10/25/21 Denita Rai, KERRY [address] [facility] [place] [address] Specialty Federal Appellate Law Clerk Hematology/Oncology 10/25/21 Minna Madrigal LSW Flight Communications Specialist 01/08/23 Pre K Teacher Relationship Specialty Start Date End Date Christina Azul MD [address] [place] [place] [address] PCP - General Family Medicine 07/03/21 Sofie Diana MD [address] [place], [place] [id number] Primary Staff Physician Cardiology 07/03/21 Verito Whelan MD [address] [place] [phone] Referring Pulmonary Disease 10/04/21 Nina Grigsby MD [address] [place] [address] [place] [address] Physician Hematology/Oncology 10/25/21 Patricia Miller, DRAWING IN MACHINE TENDER HELPER.ACCESS LEAD [address] [facility] [place] [address] Nurse Practitioner Hematology/Oncology 10/25/21 Denita Rai, KERRY [address] [facility] [place] [address] Specialty Federal Appellate Law Clerk Hematology/Oncology 10/25/21 Minna Madrigal LSW Flight Communications Specialist 01/08/23 Pre K Teacher Relationship Specialty Start Date End Date Christina Azul MD [address] [place] [place] [address] PCP - General Family Medicine 07/03/21 Sofie Diana MD [address] [place], [place] 0189695 Primary Staff Physician Cardiology 07/03/21 Verito Whelan MD [address] [place], [place] [phone] Referring Pulmonary Disease 10/04/21 Nina Grigsby MD [address] [facility] [place] [address] Physician Hematology/Oncology 10/25/21 Patricia Miller APRN.ACCESS LEAD [address] [facility] [place] [address] Nurse Practitioner Hematology/Oncology 10/25/21 Denita Rai, KERRY [address] [facility] [place] [address] Specialty Federal Appellate Law Clerk Hematology/Oncology 10/25/21 Minna Madrigal LSW Flight Communications Specialist 01/08/23 Pre K Teacher Relationship Specialty Start Date End Date Christina Azul MD [address] [place] [address] PCP - General Family Medicine 07/03/21 Sofie Diana MD [address] [place], [place] 4390695 Primary Staff Physician Cardiology 07/03/21 Verito Whelan MD [address] [place], [place] 7155895 Referring Pulmonary Disease 10/04/21 Nina Grigsby MD [address] [facility] [place] [address] Physician Hematology/Oncology 10/25/21 Patricia Miller APRN.ACCESS LEAD [address] [facility] [place] [address] Nurse Practitioner Hematology/Oncology 10/25/21 Denita Rai, KERRY [address] [facility] [place] [address] Specialty Federal Appellate Law Clerk Hematology/Oncology 10/25/21 Minna Madrigal LSW Flight Communications Specialist 01/08/23 Pre K Teacher Relationship Specialty Start Date End Date Christina Azul MD [address] [place] [address] PCP - General Family Medicine 07/03/21 Sofie Diana MD [address] [facility] [place] [address] Primary Staff Physician Cardiology 07/03/21 Verito Whelan MD [address] [place], [place] [phone] Referring Pulmonary Disease 10/04/21 Nina Grigsby MD [address] [place] [address] [place] [address] Physician Hematology/Oncology 10/25/21 Patricia Miller APRN.ACCESS LEAD [address] [place] [address] [place] [address] Nurse Practitioner Hematology/Oncology 10/25/21 Denita Rai, KERRY [address] [facility] [place] [address] Specialty Federal Appellate Law Clerk Hematology/Oncology 10/25/21 Minna Madrigal LSW Flight [employer] Specialist 01/08/23 Pre K Teacher Relationship Specialty Start Date End Date Christina Azul MD [address] [place] [address] PCP - General Family Medicine 07/03/21 Sofie Diana MD [address] [place] [address] Primary Staff Physician Cardiology 07/03/21 Verito Whelan MD [address] [place] [address] Referring Pulmonary Disease 10/04/21 Nina Grigsby MD [address] [place] [address] [place] [address] Physician Hematology/Oncology 10/25/21 Patricia Miller, DRAWING IN MACHINE TENDER HELPER.ACCESS LEAD [address] [place] [address] [place] [address] Nurse Practitioner Hematology/Oncology 10/25/21 Denita Rai, KERRY [address] [facility] [place] [address] Specialty Federal Appellate Law Clerk Hematology/Oncology 10/25/21 Minna Madrigal LSW Flight Communications Specialist 01/08/23 Pre K Teacher Relationship Specialty Start Date End Date Crhistina Azul MD [address] [place] [id number] PCP - General Family Medicine 07/03/21 Sofie Diana MD [address] [place], [place] [id number] Primary Staff Physician Cardiology 07/03/21 Verito Whelan MD [address] [place], [place] [id number] Referring Pulmonary Disease 10/04/21 Nina Grigsby MD [address] [facility] [address] [place] [phone] Physician Hematology/Oncology 10/25/21 Patricia Miller APRN.ACCESS LEAD [address] [facility] [address] [place] [phone] Nurse Practitioner Hematology/Oncology 10/25/21 Denita Rai, KERRY [address] [facility] [address] [place] [phone] Specialty Federal Appellate Law Clerk Hematology/Oncology 10/25/21 Minna Madrigal LSW Flight Communications Specialist 01/08/23 Pre K Teacher Relationship Specialty Start Date End Date Christina Azul MD [address] [place] [phone] PCP - General Family Medicine 07/03/21 Sofie Diana MD [address] [place] [address] Primary Staff Physician Cardiology 07/03/21 Verito Whelan MD [address] [place] [address] Referring Pulmonary Disease 10/04/21 Nina Grigsby MD [address] [place] [address] [place] [address] Physician Hematology/Oncology 10/25/21 Patricia Miller APRN.ACCESS LEAD [address] [place] [address] [place] [address] Nurse Practitioner Hematology/Oncology 10/25/21 Denita Rai, KERRY [address] [facility] [place] [address] Specialty Federal Appellate Law Clerk Hematology/Oncology 10/25/21 Minna Madrigal LSW Flight Communications Specialist 01/08/23 Pre K Teacher Relationship Specialty Start Date End Date Christina Azul MD [address] [place] [phone] PCP - General Family Medicine 07/03/21 Sofie Diana MD [address] [place] [address] Primary Staff Physician Cardiology 07/03/21 Verito Whelan MD [address] [place] [phone] Referring Pulmonary Disease 10/04/21 Nina Grigsby MD [address] [place] [address] [place] [address] Physician Hematology/Oncology 10/25/21 Patricia Miller, DRAWING IN MACHINE TENDER HELPER.ACCESS LEAD [address] [facility] [address] Nurse Practitioner Hematology/Oncology 10/25/21 Denita Rai, RN [address] [facility] [place] [address] Specialty Federal Appellate Law Clerk Hematology/Oncology 10/25/21 Minna Madrigal LSW Flight Communications Specialist 01/08/23 Pre K Teacher Relationship Specialty Start Date End Date Christina Azul MD [address] [place] [address] PCP - General Family Medicine 07/03/21 Sofie Diana MD [address] [place], [place] [phone] Primary Staff Physician Cardiology 07/03/21 Verito Whelan MD [address] [place], [place] [phone] Referring Pulmonary Disease 10/04/21 Nina Grigsby MD [address] [facility] [place] [address] Physician Hematology/Oncology 10/25/21 Patricia Miller, DRAWING IN MACHINE TENDER HELPER.ACCESS LEAD [address] [facility] [place] [address] Nurse Practitioner Hematology/Oncology 10/25/21 Denita Rai, RN [address] [facility] [place] [address] Specialty Federal Appellate Law Clerk Hematology/Oncology 10/25/21 Pre K Teacher Relationship Specialty Start Date End Date Christina Azul MD [address] [place] [address] PCP - General Family Medicine 07/03/21 Sofie Diana MD [address] [place], [place] 1839395 Primary Staff Physician Cardiology 07/03/21 Verito Whelan MD [address] [place], [place] [phone] Referring Pulmonary Disease 10/04/21 Nina Grigsby MD [address] [place] [address] [place] [address] Physician Hematology/Oncology 10/25/21 Patricia Miller, DRAWING IN MACHINE TENDER HELPER.ACCESS LEAD [address] [place] [address] [place] [address] Nurse Practitioner Hematology/Oncology 10/25/21 Denita Rai, KERRY [address] [place] [address] [place] [address] Specialty Federal Appellate Law Clerk Hematology/Oncology 10/25/21 Minna Madrigal LSW Flight Communications Specialist 01/08/23 Estella Fish, DRAWING IN MACHINE TENDER HELPER.ACCESS LEAD [address] [place] [address] [place] [phone] HOSPICE & PALLIATIVE MEDICINE 05/22/23 Julieth Tapia, KERRY Specialty Federal Appellate Law Clerk HOSPICE & PALLIATIVE MEDICINE 05/22/23 Pre K Teacher Relationship Specialty Start Date End Date Christina Azul MD [address] [place] [address] PCP - General Family Medicine 07/03/21 Sofie Diana MD [address] [place] [address] Primary Staff Physician Cardiology 07/03/21 Verito Whelan MD [address] [place], [place] [phone] Referring Pulmonary Disease 10/04/21 Nina Grigsby MD [address] [facility] [place] [address] Physician Hematology/Oncology 10/25/21 Patricia Miller, DRAWING IN MACHINE TENDER HELPER.ACCESS LEAD [address] [facility] [place] [address] Nurse Practitioner Hematology/Oncology 10/25/21 Denita Rai, KERRY [address] [facility] [place] [address] Specialty Federal Appellate Law Clerk Hematology/Oncology 10/25/21 Minna Madrigal LSW Flight Communications Specialist 01/08/23 Estella Fish, DRAWING IN MACHINE TENDER HELPER.ACCESS LEAD [address] [facility] [place] [address] HOSPICE & PALLIATIVE MEDICINE 05/22/23 Julieth Tapia, KERRY Specialty Federal Appellate Law Clerk HOSPICE & PALLIATIVE MEDICINE 05/22/23 Pre K Teacher Relationship Specialty Start Date End Date Christina Azul MD [address] [place] [address] PCP - General Family Medicine 07/03/21 Sofie Diana MD [address] [place] [address] Primary Staff Physician Cardiology 07/03/21 Veriot Whelan MD [address] [place] [phone] Referring Pulmonary Disease 10/04/21 Nina Grigsby MD [address] [place] [address] [place] [address] Physician Hematology/Oncology 10/25/21 Patricia Miller, DRAWING IN MACHINE TENDER HELPER.ACCESS LEAD [address] [place] [address] [place] [address] Nurse Practitioner Hematology/Oncology 10/25/21 Denita Rai, KERRY [address] [place] [address] [place] [address] Specialty Federal Appellate Law Clerk Hematology/Oncology 10/25/21 Minna Madrigal LSW Flight Communications Specialist 01/08/23 Estella Fish, DRAWING IN MACHINE TENDER HELPER.ACCESS LEAD [address] [place] [address] [place] [address] HOSPICE & PALLIATIVE MEDICINE 05/22/23 Julieth Tapia RN Specialty Federal Appellate Law Clerk HOSPICE & PALLIATIVE MEDICINE 05/22/23 Pre K Teacher Relationship Specialty Start Date End Date Christina Azul MD [address] [place] [address] PCP - General Family Medicine 07/03/21 Sofie Diana MD [address] [place] [address] Primary Staff Physician Cardiology 07/03/21 Verito Whelan MD [address] [place] [address] Referring Pulmonary Disease 10/04/21 Nina Grigsby MD [address] [place] [address] [place] [address] Physician Hematology/Oncology 10/25/21 Patricia Miller, DRAWING IN MACHINE TENDER HELPER.ACCESS LEAD [address] [place] [address] [place] [address] Nurse Practitioner Hematology/Oncology 10/25/21 Denita Rai, KERRY [address] [place] [address] [place] [address] Specialty Federal Appellate Law Clerk Hematology/Oncology 10/25/21 Minna Madrigal LSW Flight Communications Specialist 01/08/23 Estella Fish, DRAWING IN MACHINE TENDER HELPER.ACCESS LEAD [address] [place] [address] [place] [address] HOSPICE & PALLIATIVE MEDICINE 05/22/23 Julieth Tapia RN Specialty Federal Appellate Law Clerk HOSPICE & PALLIATIVE MEDICINE 05/22/23 Pre K Teacher Relationship Specialty Start Date End Date Christina Azul MD [address] [place] [id number] PCP - General Family Medicine 07/03/21 Sofie Diana MD [address] [place] [address] Primary Staff Physician Cardiology 07/03/21 Verito Whelan MD [address] [place] [address] Referring Pulmonary Disease 10/04/21 Nina Grigsby MD [address] [place] [address] [place] [address] Physician Hematology/Oncology 10/25/21 Patricia Miller, DRAWING IN MACHINE TENDER HELPER.ACCESS LEAD [address] [place] [address] [place] [address] Nurse Practitioner Hematology/Oncology 10/25/21 Denita Rai, KERRY [address] [place] [address] [place] [address] Specialty Federal Appellate Law Clerk Hematology/Oncology 10/25/21 Minna Madrigal LSW Flight Communications Specialist 01/08/23 Estella Fish, DRAWING IN MACHINE TENDER HELPER.ACCESS LEAD [address] [place] [address] [place] [address] HOSPICE & PALLIATIVE MEDICINE 05/22/23 Julieth Tapia RN Specialty Federal Appellate Law Clerk HOSPICE & PALLIATIVE MEDICINE 05/22/23 Pre K Teacher Relationship Specialty Start Date End Date Christina Azul MD [address] [place] [address] PCP - General Family Medicine 07/03/21 Sofie Diana MD [address] [place], [place] 2560695 Primary Staff Physician Cardiology 07/03/21 Verito Whelan MD [address] [place] [address] Referring Pulmonary Disease 10/04/21 Nina Grigsby MD [address] [place] [address] [place] [address] Physician Hematology/Oncology 10/25/21 Patricia Miller, DRAWING IN MACHINE TENDER HELPER.ACCESS LEAD [address] [place] [address] [place] [address] Nurse Practitioner Hematology/Oncology 10/25/21 Denita Rai, RN [address] [place] [address] [place] [address] Specialty Federal Appellate Law Clerk Hematology/Oncology 10/25/21 Minna Madrigal LSW Flight Communications Specialist 01/08/23 Estella Fish, DRAWING IN MACHINE TENDER HELPER.ACCESS LEAD [address] [facility] [place] [address] HOSPICE & PALLIATIVE MEDICINE 05/22/23 Julieth Tapia RN Specialty Federal Appellate Law Clerk HOSPICE & PALLIATIVE MEDICINE 05/22/23 Pre K Teacher Relationship Specialty Start Date End Date Christina Azul MD 1 [place] [address] PCP - General Family Medicine 07/03/21 Sofie Diana MD [address] [place] [address] Primary Staff Physician Cardiology 07/03/21 Verito Whelan MD [address] [place], [place] 0852995 Referring Pulmonary Disease 10/04/21 Nina Grigsby MD [address] [place] [address] [place] [address] Physician Hematology/Oncology 10/25/21 Patricia Miller, DRAWING IN MACHINE TENDER HELPER.ACCESS LEAD [address] [place] [address] [place] [address] Nurse Practitioner Hematology/Oncology 10/25/21 Denita Rai, KERRY [address] [facility] [place] [address] Specialty Federal Appellate Law Clerk Hematology/Oncology 10/25/21 Minna Madrigal LSW Flight Communications Specialist 01/08/23 Estella Fish, DRAWING IN MACHINE TENDER HELPER.ACCESS LEAD [address] [place] [address] [place] [address] HOSPICE & PALLIATIVE MEDICINE 05/22/23 Julieth Tapia RN Specialty Federal Appellate Law Clerk HOSPICE & PALLIATIVE MEDICINE 05/22/23 Pre K Teacher Relationship Specialty Start Date End Date Christina Azul MD [address] [place] [address] PCP - General Family Medicine 07/03/21 Sofie Diana MD [address] [place] [phone] Primary Staff Physician Cardiology 07/03/21 Verito Whelan MD [address] [place] [phone] Referring Pulmonary Disease 10/04/21 Nina Grigsby MD [address] [place] [address] [place] [address] Physician Hematology/Oncology 10/25/21 Patricia Miller, DRAWING IN MACHINE TENDER HELPER.ACCESS LEAD [address] [place] [address] [place] [address] Nurse Practitioner Hematology/Oncology 10/25/21 Denita Rai, KERRY [address] [facility] [place] [address] Specialty Federal Appellate Law Clerk Hematology/Oncology 10/25/21 Minna Madrigal LSW Flight Communications Specialist 01/08/23 Estella Fish, DRAWING IN MACHINE TENDER HELPER.ACCESS LEAD [address] [facility] [place] [address] HOSPICE & PALLIATIVE MEDICINE 05/22/23 Julieth Tapia RN Specialty Federal Appellate Law Clerk HOSPICE & PALLIATIVE MEDICINE 05/22/23 Pre K Teacher Relationship Specialty Start Date End Date Christina Azul MD [address] [place] [address] PCP - General Family Medicine 07/03/21 Sofie Diana MD [address] [place], [place] [phone] Primary Staff Physician Cardiology 07/03/21 Verito Whelan MD [address] [place] [address] Referring Pulmonary Disease 10/04/21 Nina Grigsby MD [address] [place] [address] [place] [address] Physician Hematology/Oncology 10/25/21 Patricia Miller, DRAWING IN MACHINE TENDER HELPER.ACCESS LEAD [address] [place] [address] [place] [address] Nurse Practitioner Hematology/Oncology 10/25/21 Denita Rai, KERRY [address] [place] [address] [place] [address] Specialty Federal Appellate Law Clerk Hematology/Oncology 10/25/21 Minna Madrigal LSW Flight Communications Specialist 01/08/23 Estella Fish, DRAWING IN MACHINE TENDER HELPER.ACCESS LEAD [address] [place] [address] [place] [address] HOSPICE & PALLIATIVE MEDICINE 05/22/23 Julieth Tapia, RN Specialty Federal Appellate Law Clerk HOSPICE & PALLIATIVE MEDICINE 05/22/23 Pre K Teacher Relationship Specialty Start Date End Date Christina Azul MD [address] [place] [address] PCP - General Family Medicine 07/03/21 Sofie Diana MD [address] [place] [address] Primary Staff Physician Cardiology 07/03/21 Verito Whelan MD [address] [place] [address] Referring Pulmonary Disease 10/04/21 Nina Grigsby MD [address] [place] [address] [place] [address] Physician Hematology/Oncology 10/25/21 Patricia Miller, OZZIE.ACCESS LEAD [address] [place] [address] [place] [address] Nurse Practitioner Hematology/Oncology 10/25/21 Denita Rai, KERRY [address] [place] [address] [place] [address] Specialty Federal Appellate Law Clerk Hematology/Oncology 10/25/21 Minna Madrigal LSW Flight Communications Specialist 01/08/23 Estella Fish, DRAWING IN MACHINE TENDER HELPER.ACCESS LEAD [address] [place] [address] [place] [address] HOSPICE & PALLIATIVE MEDICINE 05/22/23 Julieth Tapia, RN Specialty Federal Appellate Law Clerk HOSPICE & PALLIATIVE MEDICINE 05/22/23 Pre K Teacher Relationship Specialty Start Date End Date Enrique Esposito, DRAWING IN MACHINE TENDER HELPER.ACCESS LEAD [address] [place] [address] [phone] PCP - General 08/15/23 Sofie Diana MD [address] [place], [place] [phone] Primary Staff Physician Cardiology 07/03/21 Verito Whelan MD [address] [place], [place] [phone] Referring Pulmonary Disease 10/04/21 Nina Grigsby MD [address] [facility] [place] [address] Physician Hematology/Oncology 10/25/21 Patricia Miller, DRAWING IN MACHINE TENDER HELPER.ACCESS LEAD [address] [facility] [address] Nurse Practitioner Hematology/Oncology 10/25/21 Denita Rai, KERRY [address] [facility] [place] [address] Specialty Federal Appellate Law Clerk Hematology/Oncology 10/25/21 Minna Madrigal LSW Flight Communications Specialist 01/08/23 Estella Fish, DRAWING IN MACHINE TENDER HELPER.ACCESS LEAD [address] [facility] [place] [address] Hospice & Palliative Medicine 05/22/23 Julieth Tapia RN Specialty Federal Appellate Law Clerk Hospice & Palliative Medicine 05/22/23 Pre K Teacher Relationship Specialty Start Date End Date Enrique Esposito, DRAWING IN MACHINE TENDER HELPER.ACCESS LEAD [address] [place] [address] [phone] PCP - General 08/15/23 Sofie Diana MD [address] [place], [place] [phone] Primary Staff Physician Cardiology 07/03/21 Verito Whelan MD [address] [place], [place] 8300295 Referring Pulmonary Disease 10/04/21 Nina Grigsby MD [address] [facility] [place] [address] Physician Hematology/Oncology 10/25/21 Patricia Miller, DRAWING IN MACHINE TENDER HELPER.ACCESS LEAD [address] [facility] [address] Nurse Practitioner Hematology/Oncology 10/25/21 Denita Rai, KERRY [address] [facility] [address] Specialty Federal Appellate Law Clerk Hematology/Oncology 10/25/21 Minna Madrigal LSW Flight Communications Specialist 01/08/23 Estella Fsih, DRAWING IN MACHINE TENDER HELPER.ACCESS LEAD [address] [facility] [place] [address] Hospice & Palliative Medicine 05/22/23 Julieth Tapia, RN Specialty Federal Appellate Law Clerk Hospice & Palliative Medicine 05/22/23 Pre K Teacher Relationship Specialty Start Date End Date Enrique Esposito, DRAWING IN MACHINE TENDER HELPER.ACCESS LEAD [address] [place] [address] PCP - General 08/15/23 Sofie Diana MD [address] [place], [place] [phone] Primary Staff Physician Cardiology 07/03/21 Verito [place] MD [address] [facility] [place] [phone] Referring Pulmonary Disease 10/04/21 Nina Grigsby MD [address] [place] [address] [place] [address] Physician Hematology/Oncology 10/25/21 Patricia Miller, DRAWING IN MACHINE TENDER HELPER.ACCESS LEAD [address] [place] [address] [place] [address] Nurse Practitioner Hematology/Oncology 10/25/21 Denita Rai, KERRY [address] [place] [address] [place] [address] Specialty Federal Appellate Law Clerk Hematology/Oncology 10/25/21 Minna Madrigal LSW Flight Communications Specialist 01/08/23 Estella Fish, DRAWING IN MACHINE TENDER HELPER.ACCESS LEAD [address] [place] [address] [place] [address] Hospice & Palliative Medicine 05/22/23 Julieth Tapia, RN Specialty Federal Appellate Law Clerk Hospice & Palliative Medicine 05/22/23 Pre K Teacher Relationship Specialty Start Date End Date Enrique Esposito, DRAWING IN MACHINE TENDER HELPER.ACCESS LEAD [address] [place] [address] PCP - General 08/15/23 Sofie Diana MD [address] [place] [address] Primary Staff Physician Cardiology 07/03/21 Verito Whelan MD [address] [place], [place] [phone] Referring Pulmonary Disease 10/04/21 Nina Grigsby MD [address] [place] [address] [place] [address] Physician Hematology/Oncology 10/25/21 Patricia Miller, DRAWING IN MACHINE TENDER HELPER.ACCESS LEAD [address] [place] [address] [place] [address] Nurse Practitioner Hematology/Oncology 10/25/21 Denita Rai, KERRY [address] [place] [address] [place] [address] Specialty Federal Appellate Law Clerk Hematology/Oncology 10/25/21 Minna Madrigal LSW Flight Communications Specialist 01/08/23 Estella Fish, DRAWING IN MACHINE TENDER HELPER.ACCESS LEAD [address] [place] [address] [place] [phone] Hospice & Palliative Medicine 05/22/23 Julieth Tapia, RN Specialty Federal Appellate Law Clerk Hospice & Palliative Medicine 05/22/23 Pre K Teacher Relationship Specialty Start Date End Date Enrique Esposito, DRAWING IN MACHINE TENDER HELPER.ACCESS LEAD [address] [place] [address] PCP - General 08/15/23 Sofie Diana MD [address] [place], [place] [phone] Primary Staff Physician Cardiology 07/03/21 Verito Whelan MD [address] [place], [place] [phone] Referring Pulmonary Disease 10/04/21 Nina Grigsby MD [address] [place] [address] [place] [address] Physician Hematology/Oncology 10/25/21 Patricia Miller, DRAWING IN MACHINE TENDER HELPER.ACCESS LEAD [address] [place] [address] [place] [address] Nurse Practitioner Hematology/Oncology 10/25/21 Denita Rai, KERRY [address] [place] [address] [place] [address] Specialty Federal Appellate Law Clerk Hematology/Oncology 10/25/21 Minna Madrigal LSW Flight Communications Specialist 01/08/23 Estella Fish, DRAWING IN MACHINE TENDER HELPER.ACCESS LEAD [address] [place] [address] [place] [address] Hospice & Palliative Medicine 05/22/23 Julieth Tapia RN Specialty Federal Appellate Law Clerk Hospice & Palliative Medicine 05/22/23 Pre K Teacher Relationship Specialty Start Date End Date Enrique Esposito, DRAWING IN MACHINE TENDER HELPER.ACCESS LEAD [address] [place] [address] [phone] PCP - General 08/15/23 Sofie Diana MD [address] [place], [place] [phone] Primary Staff Physician Cardiology 07/03/21 Verito Whelan MD [address] [place], [place] [phone] Referring Pulmonary Disease 10/04/21 Nina Grigsby MD [address] [place] [address] [place] [address] Physician Hematology/Oncology 10/25/21 Patricia Miller, DRAWING IN MACHINE TENDER HELPER.ACCESS LEAD [address] [place] [address] [place] [address] Nurse Practitioner Hematology/Oncology 10/25/21 Denita Rai, RN [address] [place] [address] [place] [address] Specialty Federal Appellate Law Clerk Hematology/Oncology 10/25/21 Minna Madrigal LSW Flight Communications Specialist 01/08/23 Estella Fish, DRAWING IN MACHINE TENDER HELPER.ACCESS LEAD [address] [place] [address] [place] [address] Hospice & Palliative Medicine 05/22/23 Julieth Tapia RN Specialty Federal Appellate Law Clerk Hospice & Palliative Medicine 05/22/23 Pre K Teacher Relationship Specialty Start Date End Date Enrique Esposito, DRAWING IN MACHINE TENDER HELPER.ACCESS LEAD [address] [place] [address] PCP - General 08/15/23 Sofie Diana MD [address] [place] [address] Primary Staff Physician Cardiology 07/03/21 Verito Whelan MD [address] [place], [place] [phone] Referring Pulmonary Disease 10/04/21 Nina Grigsby MD [address] [place] [address] [place] [address] Physician Hematology/Oncology 10/25/21 Patricia Miller, DRAWING IN MACHINE TENDER HELPER.ACCESS LEAD [address] [place] [address] [place] [address] Nurse Practitioner Hematology/Oncology 10/25/21 Denita Rai, KERRY [address] [facility] [place] [address] Specialty Federal Appellate Law Clerk Hematology/Oncology 10/25/21 Minna Madrigal LSW Flight Communications Specialist 01/08/23 Estella Fish, DRAWING IN MACHINE TENDER HELPER.ACCESS LEAD [address] [facility] [place] [address] Hospice & Palliative Medicine 05/22/23 Julieth Tapia RN Specialty Federal Appellate Law Clerk Hospice & Palliative Medicine 05/22/23 Pre K Teacher Relationship Specialty Start Date End Date Enrique Esposito, DRAWING IN MACHINE TENDER HELPER.ACCESS LEAD [address] [place] [address] PCP - General 08/15/23 Sofie Diana MD [address] [place], [place] [phone] Primary Staff Physician Cardiology 07/03/21 Verito Whelan MD [address] [place] [address] Referring Pulmonary Disease 10/04/21 Nina Grigsby MD [address] [place] [address] [place] [address] Physician Hematology/Oncology 10/25/21 Patricia Miller, DRAWING IN MACHINE TENDER HELPER.ACCESS LEAD [address] [place] [address] [place] [address] Nurse Practitioner Hematology/Oncology 10/25/21 Denita Rai, KERRY [address] [facility] [place] [address] Specialty Federal Appellate Law Clerk Hematology/Oncology 10/25/21 Minna Madrigal, AMMONIA REFRIGERATION TECHNICIAN Flight Communications Specialist 01/08/23 Estella Fish, DRAWING IN MACHINE TENDER HELPER.ACCESS LEAD [address] [facility] [place] [address] Hospice & Palliative Medicine 05/22/23 Julieth Tapia, RN Specialty Federal Appellate Law Clerk Hospice & Palliative Medicine 05/22/23 Pre K Teacher Relationship Specialty Start Date End Date Enrique Esposito, DRAWING IN MACHINE TENDER HELPER.ACCESS LEAD [address] [place] [address] PCP - General 08/15/23 Sofie Diana MD [address] [place], [place] [phone] Primary Staff Physician Cardiology 07/03/21 Verito Whelan MD [address] [place], [place] [phone] Referring Pulmonary Disease 10/04/21 Nina Grigsby MD [address] [place] [address] [place] [address] Physician Hematology/Oncology 10/25/21 Patricia Miller, DRAWING IN MACHINE TENDER HELPER.ACCESS LEAD [address] [place] [address] [place] [address] Nurse Practitioner Hematology/Oncology 10/25/21 Denita Rai, KERRY [address] [facility] [place] [address] Specialty Federal Appellate Law Clerk Hematology/Oncology 10/25/21 Minna Madrigal, MARGARET Flight [employer] Specialist 01/08/23 Estella Fish, DRAWING IN MACHINE TENDER HELPER.ACCESS LEAD [address] [place] [address] [place] [address] Hospice & Palliative Medicine 05/22/23 Julieth Tapia, RN Specialty Federal Appellate Law Clerk Hospice & Palliative Medicine 05/22/23 Pre K Teacher Relationship Specialty Start Date End Date Enrique Esposito, DRAWING IN MACHINE TENDER HELPER.ACCESS LEAD [address] [place] [address] [phone] PCP - General 08/15/23 Sofie Diana MD [address] [place], [place] [id number] Primary Staff Physician Cardiology 07/03/21 Verito Whelan MD [address] [place], [place] [id number] Referring Pulmonary Disease 10/04/21 Nina Grigsby MD [address] [place] [address] [place] [address] Physician Hematology/Oncology 10/25/21 Patricia Miller, DRAWING IN MACHINE TENDER HELPER.ACCESS LEAD [address] [place] [address] [place] [address] Nurse Practitioner Hematology/Oncology 10/25/21 Denita Rai, KERRY [address] [facility] [place] [address] Specialty Federal Appellate Law Clerk Hematology/Oncology 10/25/21 Minna Madrigal LSW Flight [employer] Specialist 01/08/23 Estella Fish, DRAWING IN MACHINE TENDER HELPER.ACCESS LEAD [address] [facility] [address] Hospice & Palliative Medicine 05/22/23 Julieth Tapia RN Specialty Federal Appellate Law Clerk Hospice & Palliative Medicine 05/22/23 Pre K Teacher Relationship Specialty Start Date End Date Enrique Esposito, DRAWING IN MACHINE TENDER HELPER.ACCESS LEAD [address] [place] [address] [phone] PCP - General 08/15/23 Sofie Diana MD [address] [place], [place] [id number] Primary Staff Physician Cardiology 07/03/21 Verito Whelan MD [address] [place], [place] [phone] Referring Pulmonary Disease 10/04/21 Nina Grigsby MD [address] [facility] [address] Physician Hematology/Oncology 10/25/21 Patricia Miller, DRAWING IN MACHINE TENDER HELPER.ACCESS LEAD [address] [facility] [address] Nurse Practitioner Hematology/Oncology 10/25/21 Denita Rai, KERRY [address] [facility] [place] [address] Specialty Federal Appellate Law Clerk Hematology/Oncology 10/25/21 Minna Madrigal LSW Flight [employer] Specialist 01/08/23 Estella Fish, DRAWING IN MACHINE TENDER HELPER.ACCESS LEAD [address] [facility] [address] Hospice & Palliative Medicine 05/22/23 Julieth Tapia, RN Specialty Federal Appellate Law Clerk Hospice & Palliative Medicine 05/22/23 Pre K Teacher Relationship Specialty Start Date End Date Enrique Esposito, DRAWING IN MACHINE TENDER HELPER.ACCESS LEAD [address] [place] [address] [phone] PCP - General 08/15/23 Sofie Diana MD [address] [place], [place] [id number] Primary Staff Physician Cardiology 07/03/21 Verito Whelan MD [address] [place], [place] [id number] Referring Pulmonary Disease 10/04/21 Nina Grigsby MD [address] [facility] [place] [address] Physician Hematology/Oncology 10/25/21 Patricia Miller, DRAWING IN MACHINE TENDER HELPER.ACCESS LEAD [address] [facility] [place] [address] Nurse Practitioner Hematology/Oncology 10/25/21 Denita Rai, KERRY [address] [facility] [place] [address] Specialty Federal Appellate Law Clerk Hematology/Oncology 10/25/21 Minna Madrigal LSW Flight [employer] Specialist 01/08/23 Estella Fish, DRAWING IN MACHINE TENDER HELPER.ACCESS LEAD [address] [facility] [place] [address] Hospice & Palliative Medicine 05/22/23 Julieth Tapia, RN Specialty Federal Appellate Law Clerk Hospice & Palliative Medicine 05/22/23 Pre K Teacher Relationship Specialty Start Date End Date Enrique Esposito, DRAWING IN MACHINE TENDER HELPER.ACCESS LEAD [address] [facility] [place] [address] PCP - General 08/15/23 Sofie Diana MD [address] [place] [address] Primary Staff Physician Cardiology 07/03/21 Verito Whelan MD [address] [place] [address] Referring Pulmonary Disease 10/04/21 Nina Grigsby MD [address] [place] [address] [place] [address] Physician Hematology/Oncology 10/25/21 Patricia Miller, DRAWING IN MACHINE TENDER HELPER.ACCESS LEAD [address] [place] [address] [place] [address] Nurse Practitioner Hematology/Oncology 10/25/21 Denita Rai, KERRY [address] [place] [address] [place] [address] Specialty Federal Appellate Law Clerk Hematology/Oncology 10/25/21 Minna Madrigal LSW Flight [employer] Specialist 01/08/23 Estella Fish, DRAWING IN MACHINE TENDER HELPER.ACCESS LEAD [address] [place] [address] [place] [address] Hospice & Palliative Medicine 05/22/23 Julieth Tapia, RN Specialty Federal Appellate Law Clerk Hospice & Palliative Medicine 05/22/23 Pre K Teacher Relationship Specialty Start Date End Date Enrique Esposito, DRAWING IN MACHINE TENDER HELPER.ACCESS LEAD [address] [place] [address] PCP - General 08/15/23 Sofie Diana MD [address] [place] [address] Primary Staff Physician Cardiology 07/03/21 Verito Whelan MD [address] [place] [address] Referring Pulmonary Disease 10/04/21 Nina Grigsby MD [address] [place] [address] [place] [address] Physician Hematology/Oncology 10/25/21 Patricia Miller, DRAWING IN MACHINE TENDER HELPER.ACCESS LEAD [address] [place] [address] [place] [address] Nurse Practitioner Hematology/Oncology 10/25/21 Denita Rai, KERRY [address] [place] [address] [place] [address] Specialty Federal Appellate Law Clerk Hematology/Oncology 10/25/21 Minna Madrigal LSW Flight [employer] Specialist 01/08/23 Estella Fish, DRAWING IN MACHINE TENDER HELPER.ACCESS LEAD [address] [place] [address] [place] [phone] Hospice & Palliative Medicine 05/22/23 Julieth Tapia, RN Specialty Federal Appellate Law Clerk Hospice & Palliative Medicine 05/22/23 Pre K Teacher Relationship Specialty Start Date End Date Enrique Esposito, DRAWING IN MACHINE TENDER HELPER.ACCESS LEAD [address] [place] [address] PCP - General 08/15/23 Sofie Diana MD [address] [place] [address] Primary Staff Physician Cardiology 07/03/21 Verito Whelan MD [address] [place] [address] Referring Pulmonary Disease 10/04/21 Nina Grigsby MD [address] [place] [address] [place] [address] Physician Hematology/Oncology 10/25/21 Patricia Miller, DRAWING IN MACHINE TENDER HELPER.ACCESS LEAD [address] [place] [address] [place] [address] Nurse Practitioner Hematology/Oncology 10/25/21 Denita Rai, KERRY [address] [place] [address] [place] [address] Specialty Federal Appellate Law Clerk Hematology/Oncology 10/25/21 Minna Madrigal LSW Flight Communications Specialist 01/08/23 Estella Fish, DRAWING IN MACHINE TENDER HELPER.ACCESS LEAD [address] [place] [address] [place] [address] Hospice & Palliative Medicine 05/22/23 Julieth Tapia RN Specialty Federal Appellate Law Clerk Hospice & Palliative Medicine 05/22/23 Pre K Teacher Relationship Specialty Start Date End Date Enrique Esposito, DRAWING IN MACHINE TENDER HELPER.ACCESS LEAD [address] [place] [address] PCP - General 08/15/23 Sofie Diana MD [address] [place], [place] [id number] Primary Staff Physician Cardiology 07/03/21 Verito Whelan MD [address] [place] [address] Referring Pulmonary Disease 10/04/21 Nina Grigsby MD [address] [place] [address] [place] [address] Physician Hematology/Oncology 10/25/21 Patricia Miller, DRAWING IN MACHINE TENDER HELPER.ACCESS LEAD [address] [place] [address] [place] [address] Nurse Practitioner Hematology/Oncology 10/25/21 Denita Rai, RN [address] [place] [address] [place] [address] Specialty Federal Appellate Law Clerk Hematology/Oncology 10/25/21 Minna Madrigal LSW Flight Communications Specialist 01/08/23 Estella Fish, DRAWING IN MACHINE TENDER HELPER.ACCESS LEAD [address] [place] [address] [place] [address] Hospice & Palliative Medicine 05/22/23 Julieth Tapia RN Specialty Federal Appellate Law Clerk Hospice & Palliative Medicine 05/22/23 Pre K Teacher Relationship Specialty Start Date End Date Enrique Esposito, DRAWING IN MACHINE TENDER HELPER.ACCESS LEAD [address] [place] [address] [phone] PCP - General 08/15/23 Sofie Diana MD [address] [place], [place] [phone] Primary Staff Physician Cardiology 07/03/21 Verito Whelan MD [address] [place], [place] [phone] Referring Pulmonary Disease 10/04/21 Nina Grigsby MD [address] [place] [address] [place] [address] Physician Hematology/Oncology 10/25/21 Patricia Miller, DRAWING IN MACHINE TENDER HELPER.ACCESS LEAD [address] [place] [address] [place] [address] Nurse Practitioner Hematology/Oncology 10/25/21 Denita Rai, KERRY [address] [place] [address] [place] [address] Specialty Federal Appellate Law Clerk Hematology/Oncology 10/25/21 Minna Madrigal LSW Flight Communications Specialist 01/08/23 Estella Fish, DRAWING IN MACHINE TENDER HELPER.ACCESS LEAD [address] [place] [address] [place] [address] Hospice & Palliative Medicine 05/22/23 Julieth Tapia RN Specialty Federal Appellate Law Clerk Hospice & Palliative Medicine 05/22/23 Pre K Teacher Relationship Specialty Start Date End Date Enrique Esposito, DRAWING IN MACHINE TENDER HELPER.ACCESS LEAD [address] [place] [address] PCP - General 08/15/23 Sofie Diaan MD [address] [place], [place] [phone] Primary Staff Physician Cardiology 07/03/21 Verito Whelan MD [address] [place] [address] Referring Pulmonary Disease 10/04/21 Nina Grigsby MD [address] [place] [address] [place] [address] Physician Hematology/Oncology 10/25/21 Patricia Miller, DRAWING IN MACHINE TENDER HELPER.ACCESS LEAD [address] [place] [address] [place] [address] Nurse Practitioner Hematology/Oncology 10/25/21 Denita Rai, KERRY [address] [facility] [address] Specialty Federal Appellate Law Clerk Hematology/Oncology 10/25/21 Minna Madrigal LSW Flight Communications Specialist 01/08/23 Estella Fish, DRAWING IN MACHINE TENDER HELPER.ACCESS LEAD [address] [facility] [place] [address] Hospice & Palliative Medicine 05/22/23 Julieth Tapia RN Specialty Federal Appellate Law Clerk Hospice & Palliative Medicine 05/22/23 Pre K Teacher Relationship Specialty Start Date End Date Enrique Esposito, DRAWING IN MACHINE TENDER HELPER.ACCESS LEAD [address] [place] [address] PCP - General 08/15/23 Sofie Diana MD [address] [place] [address] Primary Staff Physician Cardiology 07/03/21 Verito Whelan MD [address] [place], [place] [phone] Referring Pulmonary Disease 10/04/21 Nina Grigsby MD [address] [facility] [address] Physician Hematology/Oncology 10/25/21 Patricia Miller, DRAWING IN MACHINE TENDER HELPER.ACCESS LEAD [address] [facility] [place] [address] Nurse Practitioner Hematology/Oncology 10/25/21 Denita Rai, KERRY [address] [facility] [place] [address] Specialty Federal Appellate Law Clerk Hematology/Oncology 10/25/21 Minna Madrigal LSW Flight Communications Specialist 01/08/23 Estella Fish, DRAWING IN MACHINE TENDER HELPER.ACCESS LEAD [address] [facility] [place] [address] Hospice & Palliative Medicine 05/22/23 Julieth Tapia RN Specialty Federal Appellate Law Clerk Hospice & Palliative Medicine 05/22/23 Pre K Teacher Relationship Specialty Start Date End Date Enrique Esposito, DRAWING IN MACHINE TENDER HELPER.ACCESS LEAD [address] [place] [address] PCP - General 08/15/23 Sofie Diana MD [address] [place], [place] [phone] Primary Staff Physician Cardiology 07/03/21 Verito Whelan MD [address] [place] [address] Referring Pulmonary Disease 10/04/21 Nina Grigsby MD [address] [place] [address] [place] [address] Physician Hematology/Oncology 10/25/21 Patricia Miller, DRAWING IN MACHINE TENDER HELPER.ACCESS LEAD [address] [place] [address] [place] [address] Nurse Practitioner Hematology/Oncology 10/25/21 Denita Rai, KERRY [address] [place] [address] [place] [address] Specialty Federal Appellate Law Clerk Hematology/Oncology 10/25/21 Minna Madrigal LSW Flight Communications Specialist 01/08/23 Estella Fish, DRAWING IN MACHINE TENDER HELPER.ACCESS LEAD [address] [facility] [place] [address] Hospice & Palliative Medicine 05/22/23 Julieth Tapia RN Specialty Federal Appellate Law Clerk Hospice & Palliative Medicine 05/22/23 Pre K Teacher Relationship Specialty Start Date End Date Enrique Esposito, DRAWING IN MACHINE TENDER HELPER.ACCESS LEAD [address] [place] [address] PCP - General 08/15/23 Sofie Diana MD [address] [place], [place] [phone] Primary Staff Physician Cardiology 07/03/21 Verito Whelan MD [address] [place], [place] [phone] Referring Pulmonary Disease 10/04/21 Nina Grigsby MD [address] [place] [address] [place] [address] Physician Hematology/Oncology 10/25/21 Patricia Miller, DRAWING IN MACHINE TENDER HELPER.ACCESS LEAD [address] [place] [address] [place] [address] Nurse Practitioner Hematology/Oncology 10/25/21 Denita Rai, KERRY [address] [place] [address] [place] [address] Specialty Federal Appellate Law Clerk Hematology/Oncology 10/25/21 Minna Madrigal LSW Flight [employer] Specialist 01/08/23 Estella Fish, DRAWING IN MACHINE TENDER HELPER.ACCESS LEAD [address] [place] [address] [place] [phone] Hospice & Palliative Medicine 05/22/23 Julieth Tapia, RN Specialty Federal Appellate Law Clerk Hospice & Palliative Medicine 05/22/23 Pre K Teacher Relationship Specialty Start Date End Date Enrique Esposito, DRAWING IN MACHINE TENDER HELPER.ACCESS LEAD [address] [place] [address] PCP - General 08/15/23 Sofie Diana MD [address] [place], [place] [phone] Primary Staff Physician Cardiology 07/03/21 Verito Whelan MD [address] [place], [place] [id number] Referring Pulmonary Disease 10/04/21 Nina Grigsby MD [address] [facility] [place] [address] Physician Hematology/Oncology 10/25/21 Patricia Miller, DRAWING IN MACHINE TENDER HELPER.ACCESS LEAD [address] [facility] [place] [address] Nurse Practitioner Hematology/Oncology 10/25/21 Denita Rai, KERRY [address] [facility] [place] [address] Specialty Federal Appellate Law Clerk Hematology/Oncology 10/25/21 Minna Madrigal LSW Flight Communications Specialist 01/08/23 Estella Fish, DRAWING IN MACHINE TENDER HELPER.ACCESS LEAD [address] [facility] [place] [address] Hospice & Palliative Medicine 05/22/23 Julieth Tapia, RN Specialty Federal Appellate Law Clerk Hospice & Palliative Medicine 05/22/23 Pre K Teacher Relationship Specialty Start Date End Date Enrique Esposito, DRAWING IN MACHINE TENDER HELPER.ACCESS LEAD [address] [place] [address] PCP - General 08/15/23 Sofie Diana MD [address] [place], [place] [phone] Primary Staff Physician Cardiology 07/03/21 Verito Whelan MD [address] [place], [place] [phone] Referring Pulmonary Disease 10/04/21 Nina Grigsby MD [address] [place] [address] [place] [address] Physician Hematology/Oncology 10/25/21 Patricia Miller, DRAWING IN MACHINE TENDER HELPER.ACCESS LEAD [address] [place] [address] [place] [address] Nurse Practitioner Hematology/Oncology 10/25/21 Denita Rai, KERRY [address] [facility] [address] Specialty Federal Appellate Law Clerk Hematology/Oncology 10/25/21 Minna Madrigal LSW Flight Communications Specialist 01/08/23 Estella Fish, DRAWING IN MACHINE TENDER HELPER.ACCESS LEAD [address] [place] [address] [place] [address] Hospice & Palliative Medicine 05/22/23 Julieth Tapia RN Specialty Federal Appellate Law Clerk Hospice & Palliative Medicine 05/22/23 Team Status: Active Member Role Status Dates NON STAFF Primary Care Provider Active Team Status: Inactive Member Role Status Dates NON STAFF Primary Care Provider Active Start: February 07, 2024 End: February 07, 2024 John Dominguez MD Emergency Provider Active Star t: February 07, 2024 End: February 07, 2024 Pre K Teacher Relationship Specialty Start Date End Date Enrique Esposito, DRAWING IN MACHINE TENDER HELPER.ACCESS LEAD [address] [place] [address]777 PCP - General 08/15/23 Sofie Diana MD [address] [place], [place] [phone] Primary Staff Physician Cardiology 07/03/21 Verito Whelan MD [address] [place] [address] Referring Pulmonary Disease 10/04/21 Nina Grigsby MD [address] [place] [address] [place] [address] Physician Hematology/Oncology 10/25/21 Patricia Miller, DRAWING IN MACHINE TENDER HELPER.ACCESS LEAD [address] [place] [address] [place] [address] Nurse Practitioner Hematology/Oncology 10/25/21 Denita Rai, KERRY [address] [facility] [place] [address] Specialty Federal Appellate Law Clerk Hematology/Oncology 10/25/21 Minna Madrigal LSW Flight Communications Specialist 01/08/23 Estella Fish, DRAWING IN MACHINE TENDER HELPER.ACCESS LEAD [address] [place] [address] [place] [address] Hospice & Palliative Medicine 05/22/23 Julieth Tapia, RN Specialty Federal Appellate Law Clerk Hospice & Palliative Medicine 05/22/23 Pre K Teacher Relationship Specialty Start Date End Date Enrique Esposito, DRAWING IN MACHINE TENDER HELPER.ACCESS LEAD [address] [place] [address] PCP - General 08/15/23 Sofie Diana MD [address] [place] [address] Primary Staff Physician Cardiology 07/03/21 Verito Whelan MD [address] [place] [id number] Referring Pulmonary Disease 10/04/21 Nina Grigsby MD [address] [place] [address] [place] [address] Physician Hematology/Oncology 10/25/21 Patricia Miller, DRAWING IN MACHINE TENDER HELPER.ACCESS LEAD [address] [place] [address] [place] [address] Nurse Practitioner Hematology/Oncology 10/25/21 Denita Rai, KERRY [address] [place] [address] [place] [address] Specialty Federal Appellate Law Clerk Hematology/Oncology 10/25/21 Minna Madrigal LSW Flight Communications Specialist 01/08/23 Estella Fish, DRAWING IN MACHINE TENDER HELPER.ACCESS LEAD [address] [place] [address] [place] [address] Hospice & Palliative Medicine 05/22/23 Julieth Tapia, RN Specialty Federal Appellate Law Clerk Hospice & Palliative Medicine 05/22/23 Pre K Teacher Relationship Specialty Start Date End Date Enrique Esposito, DRAWING IN MACHINE TENDER HELPER.ACCESS LEAD [address] [place] [address]53 PCP - General 08/15/23 Sofie Diana MD [address] [place] [address] Primary Staff Physician Cardiology 07/03/21 Verito Whelan MD [address] [place] [address] Referring Pulmonary Disease 10/04/21 Nina Grigsby MD [address] [place] [address] [place] [address] Physician Hematology/Oncology 10/25/21 Patricia Miller, DRAWING IN MACHINE TENDER HELPER.ACCESS LEAD [address] [place] [address] [place] [address] Nurse Practitioner Hematology/Oncology 10/25/21 Denita Rai, KERRY [address] [place] [address] [place] [address] Specialty Federal Appellate Law Clerk Hematology/Oncology 10/25/21 Minna Madrigal LSW Flight Communications Specialist 01/08/23 Estella Fish, DRAWING IN MACHINE TENDER HELPER.ACCESS LEAD [address] [place] [address] [place] [address] Hospice & Palliative Medicine 05/22/23 Julieth Tapia RN Specialty Federal Appellate Law Clerk Hospice & Palliative Medicine 05/22/23 Pre K Teacher Relationship Specialty Start Date End Date Enrique Esposito, DRAWING IN MACHINE TENDER HELPER.ACCESS LEAD [address] [place] [address]376 PCP - General 08/15/23 Sofie Diana MD [address] [place], [place] [phone] Primary Staff Physician Cardiology 07/03/21 Verito Whelan MD [address] [place], [place] 2755495 Referring Pulmonary Disease 10/04/21 Nina Grigsby MD [address] [place] [address] [place] [address] Physician Hematology/Oncology 10/25/21 Patricia Miller, DRAWING IN MACHINE TENDER HELPER.ACCESS LEAD [address] [place] [address] [place] [address] Nurse Practitioner Hematology/Oncology 10/25/21 Denita Rai, RN [address] [facility] [address] Specialty Federal Appellate Law Clerk Hematology/Oncology 10/25/21 Minna Madrigal LSW Flight Communications Specialist 01/08/23 Estella Fish, DRAWING IN MACHINE TENDER HELPER.ACCESS LEAD [address] [facility] [place] [address] Hospice & Palliative Medicine 05/22/23 Julieth Tapia RN Specialty Federal Appellate Law Clerk Hospice & Palliative Medicine 05/22/23 Pre K Teacher Relationship Specialty Start Date End Date Enrique Esposito, DRAWING IN MACHINE TENDER HELPER.ACCESS LEAD [address] [place] [address]68 PCP - General 08/15/23 Sofie Diana MD [address] [place] [address] Primary Staff Physician Cardiology 07/03/21 Verito Whelan MD [address] [place] [address] Referring Pulmonary Disease 10/04/21 Nina Grigsby MD [address] [place] [address] [place] [address] Physician Hematology/Oncology 10/25/21 Patricia Miller, DRAWING IN MACHINE TENDER HELPER.ACCESS LEAD [address] [place] [address] [place] [address] Nurse Practitioner Hematology/Oncology 10/25/21 Denita Rai, KERRY [address] [facility] [place] [address] Specialty Federal Appellate Law Clerk Hematology/Oncology 10/25/21 Minna Madrigal LSW Flight [employer] Specialist 01/08/23 Estella Fish, DRAWING IN MACHINE TENDER HELPER.ACCESS LEAD [address] [place] [address] [place] [address] Hospice & Palliative Medicine 05/22/23 Julieth Tapia RN Specialty Federal Appellate Law Clerk Hospice & Palliative Medicine 05/22/23 Pre K Teacher Relationship Specialty Start Date End Date Enrique Esposito, DRAWING IN MACHINE TENDER HELPER.ACCESS LEAD [address] [place] [address]269 PCP - General 08/15/23 Sofie Diana MD [address] [place], [place] [phone] Primary Staff Physician Cardiology 07/03/21 Verito Whelan MD [address] [place] [address] Referring Pulmonary Disease 10/04/21 Nina Grigsby MD [address] [place] [address] [place] [address] Physician Hematology/Oncology 10/25/21 Patricia Miller, DRAWING IN MACHINE TENDER HELPER.ACCESS LEAD [address] [place] [address] [place] [address] Nurse Practitioner Hematology/Oncology 10/25/21 Denita Rai, KERRY [address] [facility] [place] [address] Specialty Federal Appellate Law Clerk Hematology/Oncology 10/25/21 Minna Madrigal, AMMONIA REFRIGERATION TECHNICIAN Flight Communications Specialist 01/08/23 Estella Fish, DRAWING IN MACHINE TENDER HELPER.ACCESS LEAD [address] [facility] [place] [address] Hospice & Palliative Medicine 05/22/23 Julieth Tapia RN Specialty Federal Appellate Law Clerk Hospice & Palliative Medicine 05/22/23 Pre K Teacher Relationship Specialty Start Date End Date Enrique Esposito, DRAWING IN MACHINE TENDER HELPER.ACCESS LEAD [address] [place] [address] PCP - General 08/15/23 Sofie Diana MD [address] [place], [place] [phone] Primary Staff Physician Cardiology 07/03/21 Verito Whelan MD [address] [place], [place] [phone] Referring Pulmonary Disease 10/04/21 Nina Grigsby MD [address] [place] [address] [place] [address] Physician Hematology/Oncology 10/25/21 Patricia Miller, DRAWING IN MACHINE TENDER HELPER.ACCESS LEAD [address] [place] [address] [place] [address] Nurse Practitioner Hematology/Oncology 10/25/21 Denita Rai, KERRY [address] [facility] [place] [address] Specialty Federal Appellate Law Clerk Hematology/Oncology 10/25/21 Minna Madrigal, AMMONIA REFRIGERATION TECHNICIAN Flight Communications Specialist 01/08/23 Estella Fish, DRAWING IN MACHINE TENDER HELPER.ACCESS LEAD [address] [place] [address] [place] [address] Hospice & Palliative Medicine 05/22/23 Julieth Tapia, KERRY Specialty Federal Appellate Law Clerk Hospice & Palliative Medicine 05/22/23 Pre K Teacher Relationship Specialty Start Date End Date Enrique Esposito, DRAWING IN MACHINE TENDER HELPER.ACCESS LEAD [address] [place] [address] PCP - General 08/15/23 Sofie Diana MD [address] [place] [address] Primary Staff Physician Cardiology 07/03/21 Verito Whelan MD [address] [place], [place] [id number] Referring Pulmonary Disease 10/04/21 Nina Grigsby MD [address] [place] [address] [place] [address] Physician Hematology/Oncology 10/25/21 Patricia Miller, DRAWING IN MACHINE TENDER HELPER.ACCESS LEAD [address] [place] [address] [place] [address] Nurse Practitioner Hematology/Oncology 10/25/21 Denita Rai, KERRY [address] [place] [address] [place] [address] Specialty Federal Appellate Law Clerk Hematology/Oncology 10/25/21 Minna Madrigal LSW Flight Communications Specialist 01/08/23 Estella Fish, DRAWING IN MACHINE TENDER HELPER.ACCESS LEAD [address] [place] [address] Hospice & Palliative Medicine 05/22/23 Julieth Tapia RN Specialty Federal Appellate Law Clerk Hospice & Palliative Medicine 05/22/23 Pre K Teacher Relationship Specialty Start Date End Date Enrique Esposito, DRAWING IN MACHINE TENDER HELPER.ACCESS LEAD [address] [place] [address] [id number] PCP - General 08/15/23 Sofie Diana MD [address] [place], [place] [phone] Primary Staff Physician Cardiology 07/03/21 Verito Whelan MD [address] [place], [place] [id number] Referring Pulmonary Disease 10/04/21 Nina Grigsby MD [address] [place] [address] Physician Hematology/Oncology 10/25/21 Ptaricia Miller, DRAWING IN MACHINE TENDER HELPER.ACCESS LEAD [address] [place] [address] Nurse Practitioner Hematology/Oncology 10/25/21 Denita Rai, KERRY [address] [place] [address] [place] [address] Specialty Federal Appellate Law Clerk Hematology/Oncology 10/25/21 Minna Madrigal LSW Flight [employer] Specialist 01/08/23 Estella Fish, DRAWING IN MACHINE TENDER HELPER.ACCESS LEAD [address] [facility] [place] [phone] Hospice & Palliative Medicine 05/22/23 Julieth Tapia, RN Specialty Federal Appellate Law Clerk Hospice & Palliative Medicine 05/22/23 Pre K Teacher Relationship Specialty Start Date End Date Enrique Esposito, DRAWING IN MACHINE TENDER HELPER.ACCESS LEAD [address] [place] [address] PCP - General 08/15/23 Sofie Diana MD [address] [place] [address] Primary Staff Physician Cardiology 07/03/21 Verito Whelan MD [address] [place] [address] Referring Pulmonary Disease 10/04/21 Nina Grigsby MD [address] [facility] [place] [address] Physician Hematology/Oncology 10/25/21 Patricia Miller, DRAWING IN MACHINE TENDER HELPER.ACCESS LEAD [address] [facility] [place] [address] Nurse Practitioner Hematology/Oncology 10/25/21 Denita Rai, KERRY [address] [facility] [place] [address] Specialty Federal Appellate Law Clerk Hematology/Oncology 10/25/21 Minna Madrigal LSW Flight [employer] Specialist 01/08/23 Estella Fish, DRAWING IN MACHINE TENDER HELPER.ACCESS LEAD [address] [facility] [place] [address] Hospice & Palliative Medicine 05/22/23 Julieth Tapia, RN Specialty Federal Appellate Law Clerk Hospice & Palliative Medicine 05/22/23 Pre K Teacher Relationship Specialty Start Date End Date Enrique Esposito, DRAWING IN MACHINE TENDER HELPER.ACCESS LEAD [address] [place] [address] PCP - General 08/15/23 Sofie Diana MD [address] [place] [address] Primary Staff Physician Cardiology 07/03/21 Verito Whelan MD [address] [place] [address] Referring Pulmonary Disease 10/04/21 Nina Grigsby MD [address] [place] [address] [place] [address] Physician Hematology/Oncology 10/25/21 Patricia Miller, DRAWING IN MACHINE TENDER HELPER.ACCESS LEAD [address] [place] [address] [place] [address] Nurse Practitioner Hematology/Oncology 10/25/21 Denita Rai, KERRY [address] [facility] [place] [address] Specialty Federal Appellate Law Clerk Hematology/Oncology 10/25/21 Minna Madrigal LSW Flight [employer] Specialist 01/08/23 Estella Fish, DRAWING IN MACHINE TENDER HELPER.ACCESS LEAD [address] [place] [address] [place] [address] Hospice & Palliative Medicine 05/22/23 Julieth Tapia, RN Specialty Federal Appellate Law Clerk Hospice & Palliative Medicine 05/22/23 Pre K Teacher Relationship Specialty Start Date End Date Enrique Esposito, DRAWING IN MACHINE TENDER HELPER.ACCESS LEAD [address] [place] [address] PCP - General 08/15/23 Sofie Diana MD [address] [place] [address] Primary Staff Physician Cardiology 07/03/21 Verito Whelan MD [address] [place] [phone] Referring Pulmonary Disease 10/04/21 Nina Grigsby MD [address] [place] [address] [place] [address] Physician Hematology/Oncology 10/25/21 Patricia Miller, DRAWING IN MACHINE TENDER HELPER.ACCESS LEAD [address] [place] [address] [place] [address] Nurse Practitioner Hematology/Oncology 10/25/21 Denita Rai, KERRY [address] [place] [address] [place] [address] Specialty Federal Appellate Law Clerk Hematology/Oncology 10/25/21 Minna Madrigal LSW Flight [employer] Specialist 01/08/23 Estella Fish, DRAWING IN MACHINE TENDER HELPER.ACCESS LEAD [address] [place] [address] [place] [address] Hospice & Palliative Medicine 05/22/23 Julieth Tapia, RN Specialty Federal Appellate Law Clerk Hospice & Palliative Medicine 05/22/23 Pre K Teacher Relationship Specialty Start Date End Date Enrique Esposito, DRAWING IN MACHINE TENDER HELPER.ACCESS LEAD [address] [place] [address] PCP - General 08/15/23 Sofie Diana MD [address] [place] [address] Primary Staff Physician Cardiology 07/03/21 Verito Whelan MD [address] [place] [address] Referring Pulmonary Disease 10/04/21 Nina Grigsby MD [address] [place] [address] [place] [address] Physician Hematology/Oncology 10/25/21 Patricia Miller, DRAWING IN MACHINE TENDER HELPER.ACCESS LEAD [address] [place] [address] [place] [address] Nurse Practitioner Hematology/Oncology 10/25/21 Denita Rai, KERRY [address] [place] [address] [place] [address] Specialty Federal Appellate Law Clerk Hematology/Oncology 10/25/21 Minna Madrigal LSW Flight [employer] Specialist 01/08/23 Estella Fish, DRAWING IN MACHINE TENDER HELPER.ACCESS LEAD [address] [place] [address] [place] [address] Hospice & Palliative Medicine 05/22/23 Julieth Tapia RN Specialty Federal Appellate Law Clerk Hospice & Palliative Medicine 05/22/23 Team Status: [...] March 19, 2024 End: March 20, 2024 Pre K Teacher Relationship Specialty Start Date End Date Enrique Esposito DRAWING IN MACHINE TENDER HELPER.ACCESS LEAD [address] [place] [address] PCP - General 08/15/23 Sofie Daina MD [address] [place] [address] Primary Staff Physician Cardiology 07/03/21 Verito Whelan MD [address] [place] [address] Referring Pulmonary Disease 10/04/21 Nina Grigsby MD [address] [place] [address] [place] [address] Physician Hematology/Oncology 10/25/21 Patricia Miller, DRAWING IN MACHINE TENDER HELPER.ACCESS LEAD [address] [place] [address] [place] [address] Nurse Practitioner Hematology/Oncology 10/25/21 Denita Rai, KERRY [address] [place] [address] [place] [address] Specialty Federal Appellate Law Clerk Hematology/Oncology 10/25/21 Minna Madrigal LSW Flight [employer] Specialist 01/08/23 Estella Fish, DRAWING IN MACHINE TENDER HELPER.ACCESS LEAD [address] [place] [address] [place] [phone] Hospice & Palliative Medicine 05/22/23 Julieth Tapia, RN Specialty Federal Appellate Law Clerk Hospice & Palliative Medicine 05/22/23 Pre K Teacher Relationship Specialty Start Date End Date Enrique Esposito, DRAWING IN MACHINE TENDER HELPER.ACCESS LEAD [address] [place] [address] PCP - General 08/15/23 Sofie Diana MD [address] [place], [place] [id number] Primary Staff Physician Cardiology 07/03/21 Verito Whelan MD [address] [place], [place] [phone] Referring Pulmonary Disease 10/04/21 Nina Grigsby MD [address] [place] [address] [place] [address] Physician Hematology/Oncology 10/25/21 Patricia Miller, DRAWING IN MACHINE TENDER HELPER.ACCESS LEAD [address] [place] [address] [place] [address] Nurse Practitioner Hematology/Oncology 10/25/21 Denita Rai, KERRY [address] [place] [address] [place] [address] Specialty Federal Appellate Law Clerk Hematology/Oncology 10/25/21 Minna Madrigal LSW Flight [employer] Specialist 01/08/23 Estella Fish, DRAWING IN MACHINE TENDER HELPER.ACCESS LEAD [address] [place] [address] [place] [address] Hospice & Palliative Medicine 05/22/23 Julieth Tapia, KERRY Specialty Federal Appellate Law Clerk Hospice & Palliative Medicine 05/22/23 Pre K Teacher Relationship Specialty Start Date End Date Enrique Esposito, DRAWING IN MACHINE TENDER HELPER.ACCESS LEAD [address] [place] [address]199 PCP - General 08/15/23 Sofie Diana MD [address] [place] [address] Primary Staff Physician Cardiology 07/03/21 Verito Whelan MD [address] [place], [place] [phone] Referring Pulmonary Disease 10/04/21 Nina Grigsby MD [address] [place] [address] [place] [address] Physician Hematology/Oncology 10/25/21 Patricia Miller, DRAWING IN MACHINE TENDER HELPER.ACCESS LEAD [address] [place] [address] [place] [address] Nurse Practitioner Hematology/Oncology 10/25/21 Denita Rai, KERRY [address] [place] [address] [place] [address] Specialty Federal Appellate Law Clerk Hematology/Oncology 10/25/21 Minna Madrigal LSW Flight Communications Specialist 01/08/23 Estella Fish, DRAWING IN MACHINE TENDER HELPER.ACCESS LEAD [address] [place] [address] [place] [address] Hospice & Palliative Medicine 05/22/23 Julieth Tapia, RN Specialty Federal Appellate Law Clerk Hospice & Palliative Medicine 05/22/23 Pre K Teacher Relationship Specialty Start Date End Date Enrique Esposito, DRAWING IN MACHINE TENDER HELPER.ACCESS LEAD [address] [place] [address] PCP - General 08/15/23 Sofie Diana MD [address] [place] [address] Primary Staff Physician Cardiology 07/03/21 Verito Whelan MD [address] [place] [address] Referring Pulmonary Disease 10/04/21 Nina Grigsby MD [address] [place] [address] [place] [address] Physician Hematology/Oncology 10/25/21 Patricia Miller, DRAWING IN MACHINE TENDER HELPER.ACCESS LEAD [address] [facility] [place] [address] Nurse Practitioner Hematology/Oncology 10/25/21 Denita Ria, KERRY [address] [facility] [address] Specialty Federal Appellate Law Clerk Hematology/Oncology 10/25/21 Minna Madrigal LSW Flight Communications Specialist 01/08/23 Estella Fish, DRAWING IN MACHINE TENDER HELPER.ACCESS LEAD [address] [place] [address] [place] [address] Hospice & Palliative Medicine 05/22/23 Julieth Tapia RN Specialty Federal Appellate Law Clerk Hospice & Palliative Medicine 05/22/23 Pre K Teacher Relationship Specialty Start Date End Date Enrique Esposito, DRAWING IN MACHINE TENDER HELPER.ACCESS LEAD [address] [place] [address] PCP - General 08/15/23 Sofie Diana MD [address] [place], [place] [phone] Primary Staff Physician Cardiology 07/03/21 Verito Whelan MD [address] [place], [place] [phone] Referring Pulmonary Disease 10/04/21 Nina Grigsby MD [address] [place] [address] [place] [address] Physician Hematology/Oncology 10/25/21 Patricia Miller, DRAWING IN MACHINE TENDER HELPER.ACCESS LEAD [address] [place] [address] [place] [address] Nurse Practitioner Hematology/Oncology 10/25/21 Denita Rai, RN [address] [place] [address] [place] [address] Specialty Federal Appellate Law Clerk Hematology/Oncology 10/25/21 Minna Madrigal LSW Flight [employer] Specialist 01/08/23 Estella Fish, DRAWING IN MACHINE TENDER HELPER.ACCESS LEAD [address] [place] [address] [place] [address] Hospice & Palliative Medicine 05/22/23 Julieth Tapia RN Specialty Federal Appellate Law Clerk Hospice & Palliative Medicine 05/22/23 Pre K Teacher Relationship Specialty Start Date End Date Enrique Esposito, DRAWING IN MACHINE TENDER HELPER.ACCESS LEAD [address] [place] [address] PCP - General 08/15/23 Sofie Diana MD [address] [place], [place] [phone] Primary Staff Physician Cardiology 07/03/21 Verito Whelan MD [address] [place] [address] Referring Pulmonary Disease 10/04/21 Nina Grigsby MD [address] [place] [address] [place] [address] Physician Hematology/Oncology 10/25/21 Patricia Miller, DRAWING IN MACHINE TENDER HELPER.ACCESS LEAD [address] [place] [address] [place] [address] Nurse Practitioner Hematology/Oncology 10/25/21 Denita Rai, KERRY [address] [place] [address] [place] [address] Specialty Federal Appellate Law Clerk Hematology/Oncology 10/25/21 Minna Madrigal LSW Flight [employer] Specialist 01/08/23 Estella Fish, DRAWING IN MACHINE TENDER HELPER.ACCESS LEAD [address] [place] [address] [place] [address] Hospice & Palliative Medicine 05/22/23 Julieth Tapia RN Specialty Federal Appellate Law Clerk Hospice & Palliative Medicine 05/22/23 Pre K Teacher Relationship Specialty Start Date End Date Christina Azul MD [address] [place] [address] PCP - General Family Medicine 07/03/21 08/14/23 Sofie Diana MD [address] [place] [address] Primary Staff Physician Cardiology 07/03/21 Verito Whelan MD [address] [place] [address] Referring Pulmonary Disease 10/04/21 Nina Grigsby MD [address] [place] [address] [place] [address] Physician Hematology/Oncology 10/25/21 Patricia Miller, DRAWING IN MACHINE TENDER HELPER.ACCESS LEAD [address] [place] [address] [place] [address] Nurse Practitioner Hematology/Oncology 10/25/21 Denita Rai, KERRY [address] [facility] [place] [address] Specialty Federal Appellate Law Clerk Hematology/Oncology 10/25/21 Minna Madrigal LSW Flight Communications Specialist 01/08/23 Estella Fish, DRAWING IN MACHINE TENDER HELPER.ACCESS LEAD [address] [place] [address] [place] [address] Hospice & Palliative Medicine 05/22/23 Julieth Tapia RN Specialty Federal Appellate Law Clerk Hospice & Palliative Medicine 05/22/23 Pre K Teacher Relationship Specialty Start Date End Date Enrique Esposito, DRAWING IN MACHINE TENDER HELPER.ACCESS LEAD [address] [place] [address] PCP - General 08/15/23 Sofie Diana MD [address] [place] [phone] Primary Staff Physician Cardiology 07/03/21 Verito Whelan MD [address] [place], [place] [phone] Referring Pulmonary Disease 10/04/21 Nina Grigsby MD [address] [place] [address] [place] [address] Physician Hematology/Oncology 10/25/21 Patricia Miller, DRAWING IN MACHINE TENDER HELPER.ACCESS LEAD [address] [place] [address] [place] [address] Nurse Practitioner Hematology/Oncology 10/25/21 Denita Rai, KERRY [address] [place] [address] [place] [address] Specialty Federal Appellate Law Clerk Hematology/Oncology 10/25/21 Minna Madrigal LSW Flight Communications Specialist 01/08/23 Estella Fish, DRAWING IN MACHINE TENDER HELPER.ACCESS LEAD [address] [facility] [place] [address] Hospice & Palliative Medicine 05/22/23 Julieth Tapia, RN Specialty Federal Appellate Law Clerk Hospice & Palliative Medicine 05/22/23 Pre K Teacher Relationship Specialty Start Date End Date Enrique Esposito, DRAWING IN MACHINE TENDER HELPER.ACCESS LEAD [address] [place] [address] PCP - General 08/15/23 Sofie Diana MD [address] [place] [address] Primary Staff Physician Cardiology 07/03/21 Verito Whelan MD [address] [place], [place] [phone] Referring Pulmonary Disease 10/04/21 Nina Grigsby MD [address] [facility] [place] [address] Physician Hematology/Oncology 10/25/21 Patricia Miller, DRAWING IN MACHINE TENDER HELPER.ACCESS LEAD [address] [facility] [place] [address] Nurse Practitioner Hematology/Oncology 10/25/21 Denita Rai, KERRY [address] [facility] [facility] [place] [address] Specialty Federal Appellate Law Clerk Hematology/Oncology 10/25/21 Minna Madrigal LSW Flight Communications Specialist 01/08/23 Estella Fish, DRAWING IN MACHINE TENDER HELPER.ACCESS LEAD [address] [facility] [place] [address] Hospice & Palliative Medicine 05/22/23 Julieth Tapia RN Specialty Federal Appellate Law Clerk Hospice & Palliative Medicine 05/22/23 Pre K Teacher Relationship Specialty Start Date End Date Christina Azul MD [address] [place] [phone] PCP - General Family Medicine 07/03/21 08/14/23 Sofie iDana MD [address] [place], [place] 5506395 Primary Staff Physician Cardiology 07/03/21 Verito Whel[place] MD [address] [place] [phone] Referring Pulmonary Disease 10/04/21 Nina Grigsby MD [address] [place] [address] [address] [place] [phone] Physician Hematology/Oncology 10/25/21 Patricia Miller APRN.ACCESS LEAD [address] [place] [address] [address] [place] [phone] Nurse Practitioner Hematology/Oncology 10/25/21 Denita Rai, KERRY [address] [place] [address] [place] [address] Specialty Federal Appellate Law Clerk Hematology/Oncology 10/25/21 Minna Madrigal LSW Flight Communications Specialist 01/08/23 Pre K Teacher Relationship Specialty Start Date End Date Christina Azul MD [address] [place] [address] PCP - General Family Medicine 07/03/21 08/14/23 Sofie Diana MD [address] [place] [address] Primary Staff Physician Cardiology 07/03/21 Verito Whelan MD [address] [place] [address] Referring Pulmonary Disease 10/04/21 Nina Grigsby MD [address] [place] [address] [place] [address] Physician Hematology/Oncology 10/25/21 Patricia Miller APRN.ACCESS LEAD [address] [place] [address] [place] [address] Nurse Practitioner Hematology/Oncology 10/25/21 Denita Rai, KERRY [address] [place] [address] [place] [address] Specialty Federal Appellate Law Clerk Hematology/Oncology 10/25/21 Minna Madrigal LSW Flight Communications Specialist 01/08/23 Pre K Teacher Relationship Specialty Start Date End Date Christina Azul MD [address] [place] [phone] PCP - General Family Medicine 07/03/21 08/14/23 Sofie Diana MD [address] [place] [address] Primary Staff Physician Cardiology 07/03/21 Verito Whel[place] MD [address] [place] [phone] Referring Pulmonary Disease 10/04/21 Nina Grigsby MD [address] [place] [address] [place] [address] Physician Hematology/Oncology 10/25/21 Patricia Miller, DRAWING IN MACHINE TENDER HELPER.ACCESS LEAD [address] [facility] [place] [address] Nurse Practitioner Hematology/Oncology 10/25/21 Denita Rai, RN [address] [facility] [place] [address] Specialty Federal Appellate Law Clerk Hematology/Oncology 10/25/21 Minna Madrigal LSW Flight Communications Specialist 01/08/23 Pre K Teacher Relationship Specialty Start Date End Date Christina Azul MD [address] [place] [address] PCP - General Family Medicine 07/03/21 08/14/23 Sofie Diana MD [address] [place] [address] Primary Staff Physician Cardiology 07/03/21 Verito Whelan MD [address] [place] [address] Referring Pulmonary Disease 10/04/21 Nina Grigsby MD [address] [place] [address] [place] [address] Physician Hematology/Oncology 10/25/21 Patricia Miller, DRAWING IN MACHINE TENDER HELPER.ACCESS LEAD [address] [facility] [place] [address] Nurse Practitioner Hematology/Oncology 10/25/21 Denita Rai, RN [address] [facility] [place] [address] Specialty Federal Appellate Law Clerk Hematology/Oncology 10/25/21 Pre K Teacher Relationship Specialty Start Date End Date Christina Azul MD [address] [place] [address] PCP - General Family Medicine 07/03/21 08/14/23 Sofie Diana MD [address] [place] [place], [place] [phone] Primary Staff Physician Cardiology 07/03/21 Verito W[place] MD [address] [place], [place] [phone] Referring Pulmonary Disease 10/04/21 Nina Grigsby MD [address] [facility] [place] [address] Physician Hematology/Oncology 10/25/21 Patricia Miller APRN.ACCESS LEAD [address] [facility] [place] [address] Nurse Practitioner Hematology/Oncology 10/25/21 Denita Rai, KERRY [address] [facility] [place] [address] Specialty Federal Appellate Law Clerk Hematology/Oncology 10/25/21 Pre K Teacher Relationship Specialty Start Date End Date Christina Azul MD [address] [place] [place] [address] PCP - General Family Medicine 07/03/21 08/14/23 Sofie Diana MD [address] [place] [address] Primary Staff Physician Cardiology 07/03/21 Verito Whelan MD [address] [place] [address] Referring Pulmonary Disease 10/04/21 Nina Grigsby MD [address] [place] [address] [place] [address] Physician Hematology/Oncology 10/25/21 Patricia Miller, DRAWING IN MACHINE TENDER HELPER.ACCESS LEAD [address] [place] [address] [place] [address] Nurse Practitioner Hematology/Oncology 10/25/21 Denita Rai, KERRY [address] [place] [address] [place] [address] Specialty Federal Appellate Law Clerk Hematology/Oncology 10/25/21 Pre K Teacher Relationship Specialty Start Date End Date Christina Azul MD [address] [place] [address] PCP - General Family Medicine 07/03/21 08/14/23 Sofie Diana MD [address] [place] [address] Primary Staff Physician Cardiology 07/03/21 Verito Whelan MD [address] [place] [address] Referring Pulmonary Disease 10/04/21 Nina Grigsby MD [address] [place] [address] [place] [address] Physician Hematology/Oncology 10/25/21 Patricia Miller, DRAWING IN MACHINE TENDER HELPER.ACCESS LEAD [address] [place] [address] [place] [address] Nurse Practitioner Hematology/Oncology 10/25/21 Denita Rai, KERRY [address] [facility] [place] [address] Specialty Federal Appellate Law Clerk Hematology/Oncology 10/25/21 Pre K Teacher Relationship Specialty Start Date End Date Christina Azul MD [address] [place] [address] PCP - General Family Medicine 07/03/21 08/14/23 Sofie Diana MD [address] [place] [address] Primary Staff Physician Cardiology 07/03/21 Verito Whelan MD [address] [place], [place] [phone] Referring Pulmonary Disease 10/04/21 Nina Grigsby MD [address] [facility] [place] [address] Physician Hematology/Oncology 10/25/21 Patricia Miller, DRAWING IN MACHINE TENDER HELPER.ACCESS LEAD [address] [place] [address] [place] [address] Nurse Practitioner Hematology/Oncology 10/25/21 Denita Rai, KERRY [address] [facility] [place] [address] Specialty Federal Appellate Law Clerk Hematology/Oncology 10/25/21 Pre K Teacher Relationship Specialty Start Date End Date Enrique Esposito, DRAWING IN MACHINE TENDER HELPER.ACCESS LEAD [address] [place] [address] PCP - General 08/15/23 Sofie Diana MD [address] [place], [place] [phone] Primary Staff Physician Cardiology 07/03/21 Verito Whelan MD [address] [place] [phone] Referring Pulmonary Disease 10/04/21 Nina Grigsby MD [address] [place] [address] [place] [address] Physician Hematology/Oncology 10/25/21 Patricia Miller APRN.ACCESS LEAD [address] [place] [address] [place] [address] Nurse Practitioner Hematology/Oncology 10/25/21 Denita Rai, KERRY [address] [place] [address] [place] [address] Specialty Federal Appellate Law Clerk Hematology/Oncology 10/25/21 Minna Madrigal LSW Flight [employer] Specialist 01/08/23 Estella Fish, DRAWING IN MACHINE TENDER HELPER.ACCESS LEAD [address] [place] [address] [place] [address] Hospice & Palliative Medicine 05/22/23 Julieth Tapia, RN Specialty Federal Appellate Law Clerk Hospice & Palliative Medicine 05/22/23 Reason for Visit (unrecogniz ed section and content) Reason Comments Pain Specialty Diagnoses / Procedures Referred By Contac t Referred To Contact Hospice & Palliative Medicine / PALLIATIVE MEDICINE Diagnoses 3 month follow up Procedures OFFICE/OUTPATIENT ESTABLISHED HIGH MDM 40 MIN EST PATIENT Estella Fish, DRAWING IN MACHINE TENDER HELPER.ACCESS LEAD [address] [facility] [place] [address] Estella Fish, DRAWING IN MACHINE TENDER HELPER.ACCESS LEAD [address] [place] [address] Referral ID Status Reason Start Date Expiration Date V isits Requested Visits Authorized [id number] Authorized 10/29/2023 07/20/2024 99 99 Reason Comments Nutrition Assessment Specialty Diagnoses / Procedures Referred By Contac t Referred To Contact Nutrition / NUTRI SAND Diagnoses Nutri appt Procedures OFFICE/OUTPATIENT ESTABLISHED MOD MDM 30 MIN EST PATIENT Self Dominique [place], [place] [address] [place] [address] Referral ID Status Reason Start Date Expiration Date Visits Re quested Visits Authorized [id number] Closed 10/20/2023 07/20/2024 1 1 Reason Comments [...] MDM 10 MIN EST PATIENT Enrique Esposito, DRAWING IN MACHINE TENDER HELPER.ACCESS LEAD [address] [place] [address] Nina Grigsby MD [address] [place] [address] [place] [address] Referral ID Status Reason Start Date Expiration Date Visits Re quested Visits Authorized [id number] Closed 09/04/2023 07/20/2024 1 1 Specialty Diagnoses / Procedures Referred By Contac t Referred To Contact Radiation Oncology / RADIATION ONCOLOGY Diagnoses 2 Week Post XRT Procedures EST POST 90 DAY RAD TX Hector Limon MD [address] [facility] [place] [address] Hector Limon MD [address] [place] [address] [place] [address] Referral ID Status Reason Start Date Expiration Date V isits Requested Visits Authorized [id number] Authorized 11/12/2022 07/20/2023 99 99 Specialty Diagnoses / Procedures Referred By Contac t Referred To Contact [facility] Diagnoses Malignant neoplasm of upper lobe, left bronchus or lung Procedures REFERRAL TO [facility] FINANCIAL COUNSELOR Nina Grigsby MD [address] [place] [address] [place] [address] [facility] [address] [place] [address] Referral ID Status Reason Start Date Expiration Date Visits Requested Visits Authorized [id number] Pending Review Financial Clearance Required - OON [...] (HCC) Procedures CONSULT TO ONCOLOGY OFFICE/OUTPATIENT [facility] 60-74 MINUTES Aracelis Carrillo, OZZIE.ACCESS LEAD [address] [place] [address] Referral ID Status Reason Start Date Expiration Date V isits Requested Visits Authorized [id number] Closed PCP Requested Referral 10/11/2021 10/11/2022 1 [...] lung (HCC) Procedures RAD/ONC CONSULT OFFICE/OUTPATIENT [facility] 60-74 MINUTES Nina Grigsby MD [address] [place] [address] [place] [address] Referral ID Status Reason Start Date Expiration Date V isits Requested Visits Authorized [id number] Closed PCP Requested Referral 10/22/2021 10/22/2022 1 1 Reason Comments Lab Orders Specialty Diagnoses / Procedures Referred By Contac t Referred To Contact Diagnoses Malignant neoplasm of upper lobe of left lung (HCC) Procedures PALONOSETRON HCL CISPLATIN 10 MG INJECTION DIPHENHYDRAMINE HCL INJECTIO INJECTION, PEMETREXED, NOT OTHERWISE SPECIFIED, 10 MG Nina Grigsby MD [address] [place] [address] [place] [address] [facility] [place] [address] [place] [address] Referral ID Status Reason Start Date Expiration Date V isits Requested Visits Authorized [id number] Authorized 10/22/2021 01/15/2022 4 4 Reason Comments [...] Referred By Contac t Referred To Contact [facility] Diagnoses Malignant neoplasm of upper lobe, left bronchus or lung Procedures REFERRAL TO [facility] FINANCIAL COUNSELOR Nina Grigsby MD [address] [place] [address] [place] [address] [facility] [address] [facility] [place] [address] Reason Comments Results hypokalemia Reason Comments Spirometry Specialty Diagnoses / Procedures Referred By Contac t Referred To Contact [facility] Diagnoses Chronic obstructive pulmonary disease, unspecified COPD type (HCC) Lung nodule Procedures LUNG DIFFUSION CAPACITY (DLCO) DIFFUSING CAPACITY Verito Whelan MD [address] [place] [address] Res[facility] [address] [place] [address] Referral ID Status Reason Start Date Expiration Date V isits Requested Visits Authorized [id number] Closed Auto-Generate d Referral 11/09/2021 10/11/2022 1 1 Specialty Diagnoses / Procedures Referred By Contac t Referred To Contact [facility] Diagnoses Chronic obstructive pulmonary disease, unspecified COPD type (HCC) Lung nodule Procedures SPIROMETRY WITH DILATOR IF OBSTRUCTED BRNCDILAT RSPSE SPMTRY PRE&POST-BRNCDILAT ADMN Verito Whelan MD [address] [place] [address] [facility] [address] [place] [address] Referral ID Status Reason Start Date Expiration Date V isits Requested Visits Authorized [id number] Closed Auto-Generate d Referral 11/09/2021 10/11/2022 1 [...] of left lung (HCC) Nina Grigsby MD [address] [place] [address] [place] [address] [employer] [address] [place] [address] Referral ID Status Reason Start Date Expiration Date V isits Requested Visits Authorized [id number] Authorized 10/16/2022 01/14/2023 99 99 Reason Comments [...] 90 DAY RAD TX Hector Limon MD [address] [place] [address] [place] [address] Hector Limon MD [address] [place] [address] [place] [address] Reason Comments Lung Cancer Treatment visit Reason [...] STEM W/O W/CONTRAST MATERIAL Renetta Ponce MD [address] [place] [id number] [facility] [place] [address] Referral ID Status Reason Start Date Expiration Date V isits Requested Visits Authorized [id number] Closed Auto-Generate d Referral 10/26/2021 11/18/2021 1 1 Reason Comments Follow Up Pet scan results Specialty Diagnoses / Procedures Referred By Contac t Referred To Contact Ent - Otolaryngology Diagnoses Tonsillar mass Procedures CONSULT TO ENT OFFICE/OUTPATIENT [facility] 60-74 MINUTES Nina Grigsby MD [address] [place] [address] [place] [address] Referral ID Status Reason Start Date Expiration Date V isits Requested Visits Authorized [id number] Closed PCP Requested Referral 05/13/2023 05/12/2024 1 [...] NEW HIGH MDM 60-74 MINUTES Patricia Miller, DRAWING IN MACHINE TENDER HELPER.ACCESS LEAD [address] [facility] [place] [address] [place] [address] [address] [place] [address] Referral ID Status Reason Start Date Expiration Date V isits Requested Visits Authorized [id number] Closed PCP Requested Referral 05/15/2023 05/14/2024 1 1 Reason Comments Care Coordination TSH Result Reason Comments Nutrition Assessment No show Reason Onset Date Comments Refill Request 10/20/2023 Specialty Diagnoses / Procedures Referred By Contac t Referred To Contact Hematology / HEMATOLOGY/ONCOLOGY Diagnoses Follow-up exam 4 week follow up - Lumak[facility] oral med Procedures OFFICE/OUTPATIENT ESTABLISHED HIGH MDM 40 MIN EST PATIENT Enrique Esposito, DRAWING IN MACHINE TENDER HELPER.ACCESS LEAD [address] [place] [address] Nina Grigsby MD [address] [place] [address] [place] [address] Referral ID Status Reason Start Date Expiration Date V isits Requested Visits Authorized [id number] Authorized 10/20/2023 07/20/2024 99 99 Reason Comments [...] 10 MIN EST PATIENT Enrique Esposito L, DRAWING IN MACHINE TENDER HELPER.ACCESS LEAD [address] [place] [address] Nina Grigsby MD [address] [facility] [place] [address] Reason Comments Care Coordination Call Request Reason Comments Care Coordination Appointments Specialty Diagnoses / Procedures Referred By Contac t Referred To Contact Hospice & Palliative Medicine / PALLIATIVE MEDICINE Diagnoses 3 month follow up Procedures OFFICE/OUTPATIENT ESTABLISHED HIGH MDM 40 MIN EST PATIENT Estella Fish, DRAWING IN MACHINE TENDER HELPER.ACCESS LEAD [address] [facility] [place] [address] Estella Fish, DRAWING IN MACHINE TENDER HELPER.ACCESS LEAD [address] [place] [address] Reason Comments Orders Reason Comments Research IRB [id number] Case11 z15 Informed Consent Reason Onset Date Comments Simulation Request Form 12/02/2023 Consult Specialty Diagnoses / Procedures Referred By Contac t Referred To Contact Radiation Oncology / RADIATION ONCOLOGY Diagnoses New pain Procedures EST PATIENT NEW PROBLEM Pcp, No, DRAWING IN MACHINE TENDER HELPER Hector Limon MD [address] [facility] [place] [address] Referral ID Status Reason Start Date Expiration Date V isits Requested Visits Authorized [id number] Authorized 12/02/2023 07/20/2024 99 99 Reason Comments [...] NEW LUNG CANCER Nina Grigsby MD [address] [facility] [place] [address] [place] [address] [place] [address] Referral ID Status Reason Start Date Expiration Date Visits Re quested Visits Authorized [id number] Closed 02/20/2024 07/20/2024 1 1 Specialty Diagnoses [...] MDM 10 MIN EST PATIENT Enrique Esposito, DRAWING IN MACHINE TENDER HELPER.ACCESS LEAD [address] [place] 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 Swelling of arm Cancer associated pain Procedures NM PET/CT SKULL-THIGH SUBSEQUENT PET IMAGING CT ATTENUATION SKULL BASE MID-THIGH Yusef Pandya, AMRITA [address] [place] [address] [place] [address] Molecular & Functional Imaging [address] [place] [address] Referral ID Status Reason Start Date Expiration Date V isits Requested Visits Authorized [id number] Closed Auto-Generate d Referral 02/03/2024 03/04/2025 1 1 Specialty Diagnoses / Procedures Referred By Contac t Referred To Contact RADIATION ONCOLOGY Diagnoses Malignant neoplasm of upper lobe of left lung (HCC) 15 FX plus sim IMRT Procedures CT SIM PLANNING RADIATION ONCOLOGY THER RAD SIMULAJ-AIDED FIELD SETTING COMPLEX INTENSITY MODULATED RADIATION TX DLVR COMPLEX 15 FX plus sim IMRT Hector Limon MD [address] [place] [address] [place] [address] Paul Mendez [address] [place] [address] Referral ID Status Reason Start Date Expiration Date Visits Requested Visits Authorized [id number] Authorized PCP Requested Referral 12/03/2023 06/03/2024 16 16 Specialty Diagnoses / Procedures [facility] To [facility] MOLECULAR & FUNCTIONAL IMAGING Diagnoses 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) Procedures NM PET/CT SKULL-THIGH SUBSEQUENT PET IMAGING CT ATTENUATION SKULL BASE MID-THIGH Nina Grigsby MD [address] [place] [address] [place] [address] Molecular & Functional Imaging [address] [place] [address] Referral ID Status Reason Start Date Expiration Date V isits Requested Visits Authorized [id number] Closed Auto-Generate d Referral 11/04/2023 12/03/2024 1 1 Specialty Diagnoses / Procedures [facility] Diagnoses 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) Procedures CT CHEST W IVCON DIAGNOSTIC COMPUTED TOMOGRAPHY THORAX W/CONTRAST Nina Grigsby MD [address] [place] [address] [place] [address] [facility] [place] [address] Referral ID Status Reason Start Date Expiration Date V isits Requested Visits Authorized [id number] Closed Auto-Generate d Referral 10/20/2023 11/18/2024 1 1 Referral ID Status Reason Start Date Expiration Date V isits Requested Visits Authorized [id number] Closed Auto-Generate d Referral 08/25/2023 09/23/2024 1 1 Reason Comments Care Coordination Compression Sleeve Reason Comments Care Coordination Emergency Room Call Back; Follow Up Appointment Reason Comments Care Coordination ER Referral ID Status Reason Start Date Expiration Date V isits Requested Visits Authorized [id number] Closed Auto-Generate d Referral 04/22/2023 05/21/2024 [address] Specialty Diagnoses / Procedures Referred By Contac t Referred To Contact MOLECULAR & FUNCTIONAL IMAGING Diagnoses Malignant neoplasm of unspecified part of unspecified bronchus or lung (HCC) Procedures NM PET/CT SKULL-THIGH SUBSEQUENT PET IMAGING CT ATTENUATION SKULL BASE MID-THIGH Patricia Miller, DRAWING IN MACHINE TENDER HELPER.ACCESS LEAD [address] [place] [address] [place] [address] Molecular & Functional Imaging [address] [place] [address] Referral ID Status Reason Start Date Expiration Date V isits Requested Visits Authorized [id number] Closed Auto-Generate d Referral 01/07/2023 02/06/2024 1 1 Specialty Diagnoses / Procedures Referred By Contac t Referred To Contact MOLECULAR & FUNCTIONAL IMAGING Diagnoses Lung nodules Procedures NM PET/CT SKULL-THIGH SUBSEQUENT PET IMAGING CT ATTENUATION SKULL BASE MID-THIGH Nina Grigsby MD [address] [place] [address] [place] [address] Molecular & Functional Imaging [address] [place] [address] Referral ID Status Reason Start Date Expiration Date V isits Requested Visits Authorized [id number] Closed Auto-Generate d Referral 09/23/2022 10/23/2023 [address] Specialty Diagnoses / Procedures Referred By Contac t Referred To Contact CT IMAGING Diagnoses Malignant neoplasm of upper lobe of left lung (HCC) Procedures CT ABD/PEL W IVCON CT ABD & PELVIS W/CONTRAST Nina Grigsby MD [address] [place] [address] [place] [address] Ct [facility] [place] [address] Referral ID Status Reason Start Date Expiration Date V isits Requested Visits Authorized [id number] Closed Auto-Generate d Referral 08/20/2022 09/19/2023 1 1 Specialty Diagnoses / Procedures Referred By Contac t Referred To Contact CT IMAGING Diagnoses Malignant neoplasm of unspecified part of unspecified bronchus or lung (HCC) Procedures CT CHEST W IVCON DIAGNOSTIC COMPUTED TOMOGRAPHY THORAX W/CONTRAST Hector Limon MD [address] [place] [address] [place] [address] [place] [address] Referral ID Status Reason Start Date Expiration Date V isits Requested Visits Authorized [id number] Closed Auto-Generate d Referral 06/11/2022 07/11/2023 1 1 Reason Comments Radio Gen RMP Specialty Diagnoses / Procedures Referred By Contac t Referred To Contact Radiation Oncology / RADIATION ONCOLOGY Diagnoses Malignant neoplasm of upper lobe, left bronchus or lung SIM/JEROME/Chest no contrast Procedures SIMULATION JOSE IMRT 30 fractions Hector Limon MD [address] [place] [address] [place] [address] Hector Limon MD [address] [place] [address] [place] [address] Referral ID Status Reason Start Date Expiration Date Visits Re quested Visits Authorized [id number] Closed 03/14/2022 07/20/2022 99 99 Goals (unrecognized [...] BE BASED ON THE PRIMARY CLINICAL RECORDS. [employer] [facility]. provides no warranty or guarantee of the accuracy or completeness of information in this document.
--- NOTE | 2024-04-23 04:31 | XR_ITS ---
The [address] [address] Patient Name: CRISTAL BARRY MRN: [id number] date: 1955 Sex: M Assigned Patient Location: [place] Current Patient Location: [place] Accession/Order Number: [id number] Exam Date: 04/23/2024 04:40 Report Date: 04/23/2024 05:03 At the request of: CAMMY MARKER Procedure: XR chest 1V EXAM: XR chest 1V HISTORY: chest tube insertion COMPARISON: Chest x-ray, 04/23/2024. TECHNIQUE: Frontal chest x-ray. FINDINGS: Right chest tube projects over the right upper lobe. Previously described moderate size pneumothorax extends over the right lateral lung into the subpulmonic right lung base, unchanged. Underlying right lower lung consolidation may reflect compressive atelectasis or pneumonia. Left upper lobe opacity, left hilar surgical clips and asymmetric volume loss in the left hemithorax remain unchanged. XR/XR chest 1V IMPRESSION: Stable moderate-sized right-sided pneumothorax following right chest tube repositioning. No evidence of tension. No other interval change from recent exam of 30 minutes ago. Electronically authenticated by: MACKENZIE GARDNER Date: 04/23/2024 05:03
--- NOTE | 2024-04-23 06:00 | XR_ITS ---
The [address] [address] Patient Name: CRISTAL BARRY MRN: [id number] date: 1955 Sex: M Assigned Patient Location: MS Current Patient Location: MS Accession/Order Number: [id number] Exam Date: 04/23/2024 04:19 Report Date: 04/23/2024 04:32 At the request of: AFSANEH MAHARAJ Procedure: XR chest 1V SINGLE VIEW CHEST: 04/23/2024 4:19 AM EDT CLINICAL HISTORY:pneumothorax x/p chest tube COMPARISONS: Portable chest 04/23/2024 at 0037 hours TECHNIQUE: Single frontal view of the chest, utilizing portable technique. Portable radiography should be considered a technically compromised study. Strongly consider dedicated PA and lateral chest radiographs, as clinically indicated. FINDINGS: Repeat chest x-ray 04/23/2024 at 0409 hours. LINES AND TUBES: Persistent pleural catheter right upper lobe. CARDIAC SILHOUETTE: Within normal limits. MEDIASTINAL AND HILAR CONTOUR: Within normal limits. PULMONARY PARENCHYMA AND PLEURA: Persistent mild to moderate right pneumothorax. Pleura reflected 1 cm at right upper lobe. Patient slightly rotated to the left which accounts for some leftward positioning of hardware. Doubt true mediastinal shift. Size of right pneumothorax stable from earlier. Patchy infiltrates throughout right lung and upper lobe base and right lower lobe remain without improvement. Some of this is atelectasis. No left pneumothorax. No left or right pleural effusion. Left lung is clear. OSSEOUS STRUCTURES:Sternotomy. OTHER COMMENTS:None. XR/XR chest 1V IMPRESSION: Stable size and appearance of right pneumothorax and right lung infiltrates with pleural decompression catheter right upper lobe. Correlate with symptoms and recommend close clinical and imaging follow-up. This report was generated with voice recognition software. Effort has been made to ensure accuracy of this report, however, occasional wording errors may persist. Please contact our office with any questions. Electronically authenticated by: DEIRDRE SHINE Date: 04/23/2024 04:32
[2024-04-23 06:13] LABS: Hematocrit 29.6 % (42.0-54.0); Hemoglobin 9.5 g/dL (14.0-18.0); Mean Corpuscular HGB Conc 32.1 g/dL (29.9-35.2); Mean Corpuscular Hemoglobin 30.4 pg (25.9-34.0); Mean Corpuscular Volume 94.9 fL (80.0-94.0); Mean Platelet Volume 11.3 fL (9.5-13.5); Platelet Count 156 10^3/uL (150-450); Red Blood Count 3.12 10^6/uL (4.70-6.10); Red Cell Distribution Width 14.8 % (11.0-15.0); White Blood Count 8.7 10^3/uL (4.0-11.0)
[2024-04-23 06:25] LABS: Anion Gap 8.3; BUN Creatinine Ratio 16.2; Calcium 8.6 mg/dL (8.5-10.1); Chloride 98 mmol/L (98-107); Estimated GFR (African America >60 (>=60 mL/min/1.73m^2); Estimated GFR (Non-African Ame >60 (>=60 mL/min/1.73m^2); Glucose 105 mg/dL (74-106); Potassium 3.3 mmol/L (3.5-5.1); Sodium 136 mmol/L (136-145)
--- NOTE | 2024-04-23 06:41 | PC.NURSE ---
0343- Radha RN in room because pt took off his telemetry. upon entering the room, the patient was beginning to pull at his chest tube. Pt pulled the chest tube half out before RN could stop the patient and call for help. RN and nursing pond supervisor in room to assist. Public Affairs Director called the ER doctor who came to bedside and tried to re-position the chest tube. x-ray was then called to verify placement. Placement was not correct so ER nurse came back up to the bedside to insert a new chest tube. chest tube was placed and another x-ray taken to confirm placement. chest tube set up to suction at 11. pt denies having pain or discomfort during this time and vital signs remained stable. RN informed the night hospitalist of this change
[2024-04-23] MEDS: ACETAMINOPHEN 325 MG TABLET 650 MG PO (08:11)
--- NOTE | 2024-04-23 09:15 | SWNOTE1 ---
Pt had [facility] coming in to the home.
--- NOTE | 2024-04-23 09:42 | PC.NURSE ---
pt stated theres an in my room and he is telling me to leave pt agitated, stated i am getting out of bed and i leaving, i don't have much time left to stay attempted to reassure pt, pt remains sitting up in bed, pulling at tubes and wires. bed alarm on, offered to call pts son(s), he declined.
--- NOTE | 2024-04-23 09:43 | CM.NOTE ---
Rounds made with Dr. Causey, discussed diagnosis and plan of care. Discussed with pt about code status and his wishes on keeping chest tube or removing and keeping pt comfortable. Pt would like to discuss with his family before making decision. Pt at this time has anterior chest tube to R chest, Dr. Coto will consult for further recommendations.
--- NOTE | 2024-04-23 09:55 | PC.NURSE ---
pt called donn ryan, this nurse spoke with son, will be coming in to discuss plan of care
--- NOTE | 2024-04-23 10:48 | XR_ITS ---
[address] [address] Patient Name: CRISTAL BARRY MRN: [id number] date: 1955 Sex: M Assigned Patient Location: MS Current Patient Location: MS Accession/Order Number: [id number] Exam Date: 04/23/2024 11:18 Report Date: 04/23/2024 12:33 At the request of: ALEXIS WALDEN Procedure: XR chest 1V EXAMINATION: XR chest 1V HISTORY: Right traumatic pneumothorax COMPARISON: XR chest 04/23/2024 4:36 AM FINDINGS: LUNGS: Persistent opacities within mid and lower right lung. Left lung is clear. VASCULATURE: No increased pulmonary vasculature. PLEURA: Free air along lateral margin of the mid and lower chest wall to 10 mm in thickness. Small caliber anterior right upper chest tube. CARDIAC: No cardiomegaly or cardiac silhouette abnormality. MEDIASTINUM: Prior sternotomy. No abnormal widening. BONES: Mildly displaced lateral right sixth rib fracture. OTHER: Negative. XR/XR chest 1V IMPRESSION: 1. Persistent moderate right lateral pneumothorax; slightly improved. 2. Small caliber right chest tube. 3. Persistent mid and lower right lung dense opacities; atelectasis versus infiltrates versus mass. Electronically authenticated by: TRUDY GUTIERREZ Date: 04/23/2024 12:33
--- NOTE | 2024-04-23 11:21 | SWNOTE1 ---
SW spoke to pt's son in room. He explained to SW that pt was doing alright at home, using his cane and oxygen and getting around alright. He said pt is in and out of confusion. He stated he went to get pt ice cream and came home and he had fallen outside and requested son call 911. Pt's son called hospice nurse immediately and she came and then ambulance was called and pt came to hospital. SW spoke with son about hospice and possibly having them come to hospital to evaluate pt now and assist with discharge planning. SW also spoke about the inpatient unit and if he was appropriate for that and we will have [facility] evaluate that. Pt's son in agreement. Pt was sitting up in bed with eyes open, but did not answer any questions. At this time plan is to reach out to hospice and have someone come assess pt. HERNÁN called Yana at [facility] and explained the situation. Yana is going to look in to things and see if they can get someone here today. She requested to send over referral to intake and need a new order. Referral sent to [facility]. Referral included face sheet, ED note, H&P, provider notes, case management report, nursing notes, diagnostic imaging, med list, DNRCC, and hospice order.
--- NOTE | 2024-04-23 11:35 | PM.HP ---
HPI H&P: HPI History of Present Illness Chief complaint: SOB Narrative: 69-year-old male currently on hospice due to end-stage lung cancer was brought over to the emergency department by EMS. Patient fell at home and became extremely SOB, hypoxic and tachycardic afterwards. EMS was called due to his unstable vital signs. He was given a DuoNeb treatment by EMS with mild clinical improvement however EMS stated that it felt like he was actively dying upon their arrival as his vital signs were erratic with tachycardia and tachypnea then episodes of decreased responsiveness and bradycardia. Work up in ED revealed revealed large tension pneumothorax with a right to left side shift. ER provider placed a chest tube overnight with stabilization of his vital signs and improvement on his Ptx. Overnight, patient pulled on the chest tube and it fell out of place. A new CT had to be reinserted. Detailed discussion with patient, family members. He currently has an air leak. Plan is to c/w Chest tube, serial CXR and removed Chest tube once Ptx resolves/lungs re expand fully. Pulm on board. Patient reports feeling better from resp point of view but reports poorly controlled pain at chest insertion site. He is currently on 6 L O2, requires 2-3 O2 at baseline. Opioid HPI Opioid Management Most Recent Pain and Opioid Data: Last Pain Scale 5 04/23/24 11:00 Last Pain Intensity 5 04/02/24 09:27 Last Pain Assessment 04/23/24 11:00 Last MAR Pain Assessment 04/23/24 09:27 Last ORT Total Score 0 04/23/24 02:17 Last ORT Risk Category Low Risk 04/23/24 02:17 Review of Systems ROS Status of ROS 10 or more systems reviewed and unremarkable except as noted in history and below [facility] Medical History (Updated 04/23/24 @ 11:50 by Ronaldo Coto DO) Lung cancer ?C34.90 - Malignant neoplasm of unspecified part of unspecified bronchus or lung (ICD-10) Pneumonia ?J18.9 - Pneumonia, unspecified organism (ICD-10) Pulmonary emboli ?I26.99 - Other pulmonary embolism without acute cor pulmonale (ICD-10) Mass of tongue ?K14.8 - Other diseases of tongue (ICD-10) HLD (hyperlipidemia) ?E78.5 - Hyperlipidemia, unspecified (ICD-10) COPD (chronic obstructive pulmonary disease) ?J44.9 - Chronic obstructive pulmonary disease, unspecified (ICD-10) Metastatic non-small cell lung cancer ?C34.90 - Malignant neoplasm of unspecified part of unspecified bronchus or lung (ICD-10) History of pulmonary embolism ?Z86.711 - Personal history of pulmonary embolism (ICD-10) CAD (coronary artery disease) ?I25.10 - Atherosclerotic heart disease of [place] coronary artery without angina pectoris (ICD-10) PAD (peripheral artery disease) ?I73.9 - Peripheral vascular disease, unspecified (ICD-10) Surgical History (Updated 03/28/24 @ 11:54 by Shaikh Marium MD) H/O pneumonectomy ?Z98.890 - Other specified postprocedural states (ICD-10) ?Z90.2 - Acquired absence of lung [part of] (ICD-10) Hx of CABG ?Z95.1 - Presence of aortocoronary bypass graft (ICD-10) Social History (Updated 03/28/24 @ 11:55 by Shaikh Marium MD) Within the past year, how often did you have a drink containing alcohol: monthly or less Within the past year, how many standard drinks containing alcohol did you have on a typical day: 1 or 2 Within the past year, how often did you have six or more drinks on one occasion: never Total score: 0 Score interpretation: A score less than 4 is consistent with normal alcohol consumption. Smoking status: Former smoker Non-prescribed substance use: denies use Highest level of school completed/degree received: high school graduate Little interest or pleasure in doing things: several days Feeling down, depressed, or hopeless: not at all Meds Home Medications and Allergies Home Medications ?Medication ?Instructions ?Recorded ?Confirmed ?Type albuterol sulfate 90 mcg/actuation 2 puff inhalation Q4H PRN 03/28/24 04/23/24 History aerosol inhaler shortness of breath or wheezing venlafaxine 37.5 mg 37.5 mg PO .QD 03/28/24 04/23/24 History capsule,extended release 24 hr dexamethasone 4 mg tablet 4 mg PO BID 04/03/24 04/23/24 History pregabalin 100 mg capsule 100 mg PO TID 04/03/24 04/23/24 History trazodone 50 mg tablet 50 mg PO BEDTIME PRN sleep 04/03/24 04/23/24 History alprazolam 0.5 mg tablet 0.5 mg PO Q4H PRN restless, 04/23/24 04/23/24 History agitation, SOB alprazolam 0.5 mg tablet 0.5 mg PO TID 04/23/24 04/23/24 History fentanyl 75 mcg/hr transdermal 1 patch transdermal Q72H 04/23/24 04/23/24 History patch ondansetron HCl 4 mg tablet 4 mg PO Q6H PRN nausea and vomiting 04/23/24 04/23/24 History oxycodone 10 mg tablet 10 mg PO Q4H PRN pain 04/23/24 04/23/24 History sennosides 8.6 mg tablet (senna) 8.6 mg PO DAILY 04/23/24 04/23/24 History Allergies Allergy/AdvReac Type Severity Reaction Status Date / Time No Known Drug Allergies Allergy Verified 04/02/24 02:32 Exam Constitutional Vital Signs, click to edit/add: Last Vital Signs Temp 97.9 F 04/23/24 07:38 Pulse 78 04/23/24 11:21 Resp 20 04/23/24 04:43 BP 148/78 H 04/23/24 11:21 Pulse Ox 95 04/23/24 09:56 O2 Del Method Nasal Cannula 04/23/24 11:21 O2 Flow Rate 6 04/23/24 11:21 General appearance: cooperative and comfortable Nutritional appearance: cachectic HENKY Common normals: normocephalic and head/scalp atraumatic Chest Other: Barrel shaped chest. Right upper chest region has Chest tube in place. v Respiratory Common normals: normal respiratory effort, no retractions and no use of accessory muscles Effort & inspection: able to speak in complete sentences and tachypneic Auscultation: diminished lung sounds Extremity Common normals: normal to inspection and full ROM Neuro Common normals: oriented x3, moves all extremities, no focal motor deficits and no sensory deficits noted Sensorium/orientation: fluctuating sensorium Other: Intermittent confusion Psych Common normals: mental status grossly normal, cooperative, denies homicidal ideation and denies suicidal ideation Results Labs Labs: Short CBC 04/23/24 04/23/24 Range/Units 01:22 06:00 WBC 9.7 8.7 (4.0-11.0) 10^3/uL Hgb 9.7 L 9.5 L (14.0-18.0) g/dL Hct 30.8 L 29.6 L (42.0-54.0) % Plt Count 166 156 (150-450) 10^3/uL BMP 04/23/24 04/23/24 01:15 06:00 Sodium 136 136 Potassium 3.0 L 3.3 L Chloride 98 98 Carbon Dioxide 29.4 33.0 H BUN 19.0 H 18.0 Creatinine 1.29 1.11 Glucose 159 H 105 Calcium 8.3 L 8.6 Liver Function 04/23/24 Range/Units 01:15 Total Bilirubin 0.7 (0.2-1.0) mg/dL AST 23 (15-37) U/L ALT 40 (16-63) U/L Alkaline Phosphatase 77 (46-116) U/L Albumin 2.5 L (3.4-5.0) g/dL Assessment and Plan Assessment and Plan (1) Tension pneumothorax: Assessment and Plan: Traumatic Ptx from rib fx. Chest tube in place. CXR shows improvement but still has moderate sized Ptx. Comfortable from resp pov Chest tube management as per Pulm. (2) Acute and chronic respiratory failure with hypoxia: Assessment and Plan: On 2-3 L O2 via NC. Currently on 6 L. Wean off O2 as tolerated. (3) COPD (chronic obstructive pulmonary disease): Assessment and Plan: No active wheezing. Duoenebs as needed. Qualifiers: COPD type: emphysema Emphysema type: unspecified Qualified Code(s): J43.9 - Emphysema, unspecified (4) Metastatic non-small cell lung cancer: Assessment and Plan: Enrolled in hospice. Resume his oral narcotics/ativan as needed he was receiving for chronic pain/anxiety (5) History of pulmonary embolism: Assessment and Plan: Enrolled in hospice. Not on AC. (6) CAD (coronary artery disease): Assessment and Plan: No evidence of active cardiac ischemia. Enrolled in hospice. Qualifiers: Coronary Disease-Associated Artery/Lesion type: [place] artery [place] vs. transplanted heart: ch[place]koot heart Associated angina: without angina Qualified Code(s): I25.10 - Atherosclerotic heart disease of [place] coronary artery without angina pectoris (7) PAD (peripheral artery disease): Assessment and Plan: Good distal pulses. Monitor. (8) Severe protein-calorie malnutrition: Assessment and Plan: cancer cachexia, continues to lose weight. BMI of only 16, has lost another 10 kg since last admission. Added ensure, prostat.
--- NOTE | 2024-04-23 11:38 | PM.PLCN ---
History of Present Illness History of Present Illness Consult date: 04/23/24 Reason for consult: pneumothorax Chief complaint: SOB Narrative: 69yo male presents with a fall to ER, found to have a large traumatic pneumothorax. ThoraVent inserted by Dr. Car in the ER; I was consulted for chest tube management. He is a former patient of mine, but has been lost to F/U for years; his last visit with me was 04/10/2021 when I saw him for pre-op evaluation for left upper lobectomy after having a non-diagnostic left-sided CT-guided biopsy which ended in an iatrogenic pneumothorax. He subsequently canceled his surgery with Dr. Connelly and wanted a second opinion; he found another clinical applications specialist in [place] and I had not seen him since (he had a history of delaying procedures). He has since developed metastatic lung cancer on the precipice of Hospice. He complains of right-sided chest pain and dyspnea. He appears cachectic. Review of Systems ROS Status of ROS 10 or more systems reviewed and unremarkable except as noted in history and below [facility] Medical History (Updated 04/23/24 @ 11:50 by Ronaldo Coto DO) Lung cancer ?C34.90 - Malignant neoplasm of unspecified part of unspecified bronchus or lung (ICD-10) Pneumonia ?J18.9 - Pneumonia, unspecified organism (ICD-10) Pulmonary emboli ?I26.99 - Other pulmonary embolism without acute cor pulmonale (ICD-10) Mass of tongue ?K14.8 - Other diseases of tongue (ICD-10) HLD (hyperlipidemia) ?E78.5 - Hyperlipidemia, unspecified (ICD-10) COPD (chronic obstructive pulmonary disease) ?J44.9 - Chronic obstructive pulmonary disease, unspecified (ICD-10) Metastatic non-small cell lung cancer ?C34.90 - Malignant neoplasm of unspecified part of unspecified bronchus or lung (ICD-10) History of pulmonary embolism ?Z86.711 - Personal history of pulmonary embolism (ICD-10) CAD (coronary artery disease) ?I25.10 - Atherosclerotic heart disease of [place] coronary artery without angina pectoris (ICD-10) PAD (peripheral artery disease) ?I73.9 - Peripheral vascular disease, unspecified (ICD-10) Surgical History (Updated 03/28/24 @ 11:54 by Shaikh Marium MD) H/O pneumonectomy ?Z98.890 - Other specified postprocedural states (ICD-10) ?Z90.2 - Acquired absence of lung [part of] (ICD-10) Hx of CABG ?Z95.1 - Presence of aortocoronary bypass graft (ICD-10) Social History (Updated 03/28/24 @ 11:55 by Shaikh Marium MD) Within the past year, how often did you have a drink containing alcohol: monthly or less Within the past year, how many standard drinks containing alcohol did you have on a typical day: 1 or 2 Within the past year, how often did you have six or more drinks on one occasion: never Total score: 0 Score interpretation: A score less than 4 is consistent with normal alcohol consumption. Smoking status: Former smoker Non-prescribed substance use: denies use Highest level of school completed/degree received: high school graduate Little interest or pleasure in doing things: several days Feeling down, depressed, or hopeless: not at all Meds Home Medications and Allergies Home Medications ?Medication ?Instructions ?Recorded ?Confirmed ?Type albuterol sulfate 90 mcg/actuation 2 puff inhalation Q4H PRN 03/28/24 04/23/24 History aerosol inhaler shortness of breath or wheezing venlafaxine 37.5 mg 37.5 mg PO .QD 03/28/24 04/23/24 History capsule,extended release 24 hr dexamethasone 4 mg tablet 4 mg PO BID 04/03/24 04/23/24 History pregabalin 100 mg capsule 100 mg PO TID 04/03/24 04/23/24 History trazodone 50 mg tablet 50 mg PO BEDTIME PRN sleep 04/03/24 04/23/24 History alprazolam 0.5 mg tablet 0.5 mg PO Q4H PRN restless, 04/23/24 04/23/24 History agitation, SOB alprazolam 0.5 mg tablet 0.5 mg PO TID 04/23/24 04/23/24 History fentanyl 75 mcg/hr transdermal 1 patch transdermal Q72H 04/23/24 04/23/24 History patch ondansetron HCl 4 mg tablet 4 mg PO Q6H PRN nausea and vomiting 04/23/24 04/23/24 History oxycodone 10 mg tablet 10 mg PO Q4H PRN pain 04/23/24 04/23/24 History sennosides 8.6 mg tablet (senna) 8.6 mg PO DAILY 04/23/24 04/23/24 History Allergies Allergy/AdvReac Type Severity Reaction Status Date / Time No Known Drug Allergies Allergy Verified 04/02/24 02:32 Exam Constitutional Vital Signs, click to edit/add: Last Vital Signs Temp 97.9 F 04/23/24 07:38 Pulse 78 04/23/24 11:21 Resp 20 04/23/24 04:43 BP 148/78 H 04/23/24 11:21 Pulse Ox 95 04/23/24 09:56 O2 Del Method Nasal Cannula 04/23/24 11:21 O2 Flow Rate 6 04/23/24 11:21 Documenting provider has reviewed patient's vital signs: yes General appearance: frail appearing Nutritional appearance: cachectic Orientation/consciousness: Yes awake HENMT Face and sinus: normal facial exam Chest Other: Right anterior ThoraVent - well placed, no subQ emphysema, no bleeding or exudate. Respiratory Other: Breathing shallow but unlabored. Coarse breath sounds bilateral. No wheezes. Cardio Rate: regular rate Rhythm: regular rhythm GI Inspection: scaphoid Auscultation: normoactive bowel sounds Extremity General: atrophy Neuro Motor exam: no tremor noted and no fasciculations Results Laboratory Findings Abnormal lab findings: Abnormal Labs 04/23/24 04/23/24 04/23/24 01:15 01:22 06:00 RBC 3.23 L 3.12 L Hgb 9.7 L 9.5 L Hct 30.8 L 29.6 L MCV 95.4 H 94.9 H Seg Neuts % (Manual) 95.0 H Lymphocytes % (Manual) 3.0 L Eosinophils % (Manual) 0.0 L Basophils % (Manual) 0.0 L Neutrophils # (Manual) 9.21 H Lymphocytes # (Manual) 0.29 L Monocytes # (Manual) 0.19 L Potassium 3.0 L 3.3 L Carbon Dioxide 33.0 H BUN 19.0 H Est GFR (Non-Af Amer) 56 L Glucose 159 H Calcium 8.3 L Total Protein 5.7 L Albumin 2.5 L Diagnostic Findings Chest x-ray: report reviewed and image reviewed Assessment and Plan Assessment and Plan (1) Tension pneumothorax: Assessment and Plan: Patient developed right-sided tension pneumothorax after fall. Lung has re-expanded after insertion of ThoraVent. There is a mild air leak in the atrium. Plan will be to continue with suction, repeat CXR tomorrow, and place patient on O2 @ 6L/min for N2 washout. The RN informed me that the patient had threatened to leave AMA. I explained to the patient that a tension pneumothorax can be fatal and he needs to have this treated before he leaves. He had a history of a left-sided iatrogenic pneumothorax in [address]-guided biopsy. (2) Metastatic non-small cell lung cancer: Assessment and Plan: I attempted to w/up patient in [address], but he left the practice (and Dr. Connelly who set the patient up for surgery); the patient now has end-stage metastatic lung cancer. After pneumothorax is treated, suggest patient should be under Hospice care. (3) Centrilobular emphysema: Assessment and Plan: Bronchodilators as needed. Previously on Bevespi in 2020. (4) Severe protein-calorie malnutrition: Assessment and Plan: Cachexia associated with cancer. (5) History of tobacco abuse: Plan After patient is treated for the pneumothorax, he does not need any F/U with me outpatient.
--- NOTE | 2024-04-23 11:42 | SWNOTE1 ---
Important Message from [employer] reviewed and discussed with patient's son. Pt's son verbalized understanding and signed the form. Original given to patient's son and copy placed in patient?s chart.
[2024-04-23] MEDS: ALPRAZOLAM 0.5 MG TABLET PO ×2 (13:11→21:54)
[2024-04-23] MEDS: PREGABALIN 100 MG CAPSULE PO ×2 (13:11→21:54)
[2024-04-23] MEDS: VENLAFAXINE HCL ER 37.5 MG CAPSULE PO (13:11)
[2024-04-23] MEDS: FENTANYL 25 MCG/HR PATCH.TD72 TD (13:11)
[2024-04-23] MEDS: FENTANYL 50 MCG/HR PATCH.TD72 TD (13:11)
--- NOTE | 2024-04-23 15:12 | SWNOTE1 ---
SW received message from [facility] and they do plan on having a nurse come to see pt, but unsure of time. SW notified nurse.
--- NOTE | 2024-04-23 16:20 | SWNOTE1 ---
SW spoke to [facility] and they will come and re-eval everyday, but the plan at discharge will be for pt to go to the [facility] inpt unit. HERNÁN let nurse know.
[2024-04-23] MEDS: DEXAMETHASONE 4 MG TABLET PO (20:20)
--- NOTE | 2024-04-23 22:14 | XR_ITS ---
The [address] [address] Patient Name: CRISTAL BARRY MRN: [id number] date: 1955 Sex: M Assigned Patient Location: MS Current Patient Location: Accession/Order Number: [id number] Exam Date: 04/23/2024 22:18 Report Date: 04/23/2024 22:36 At the request of: GABRIELLA DYER Procedure: XR chest 1V Exam: Radiographs: XR chest 1V Reason for exam: Shortness of Breath Comparison: Chest x-ray from earlier today XR/XR chest 1V IMPRESSION: No definite residual right pneumothorax evident although the lateral right lung base is not included within the [id number]. Airspace opacities in the right mid and lower lung, correlate clinically. Right chest tube. Sternotomy. Left upper lung postoperative change. Emphysematous changes in both lungs. Remainder of the chest is unremarkable. Electronically authenticated by: OSBALDO WONG Date: 04/23/2024 22:36
[2024-04-24] VITALS (21 sets, daily range): BP systolic 74–179; BP diastolic 55–95; PULSE 65–142; TEMP 37.2–39; O2SAT 76–92
[2024-04-24] MEDS: MORPHINE SULFATE 4 MG/ML VIAL IV ×3 (00:09→05:15)
[2024-04-24] MEDS: SCOPOLAMINE 1 MG/3 DAYS TRANSDERM PATCH 1 PATCH TD (00:09)
--- NOTE | 2024-04-24 03:08 | PC.NURSE ---
Nursing notes from 2300: 2300-bedside report received. patient resting in tripod position. respirations noted to be 10bpm. thoravent intact. 2350-Nursing supervisor shop updated RN that patient now has audible crackles and has minimal response to verbal stimulation. Vince Neil called and updated on patients condition. Notified ok to come to bedside. 0007-patient given morphine as charted. 0015-vince Neil and support person arrived to bedside. updated given. they deny questions. 0200-patient noted to be sweating profusely. RN asked patient if he would like repositioned. shakes head yes. 0225-patient repositioned and bath given. rectal temp obtained. other vital signs obtained. patient repositioned for comfort. vnice Neil updated on declining status.
[2024-04-24] MEDS: ACETAMINOPHEN 1,000 MG/100 ML PREMIX 400 MG IV (03:37)
--- NOTE | 2024-04-24 06:00 | XR_ITS ---
The [address] [address] Patient Name: CRISTAL BARRY MRN: [id number] date: 1955 Sex: M Assigned Patient Location: Current Patient Location: Accession/Order Number: [id number] Exam Date: 04/24/2024 07:35 Report Date: 04/24/2024 20:11 At the request of: ALEXIS WALDEN Procedure: XR chest 1V EXAMINATION:XR chest 1V INDICATION:Right traumatic pneumothorax COMPARISON:04/23/2024 TECHNIQUE:A single frontal view of the chest is submitted. FINDINGS: The cardiac silhouette is stable. A right-sided chest tube is present. There is a small right apical pneumothorax present on the current exam. This was obscured on the previous exam due to overlap from the patient's head. There is airspace disease in the left perihilar chest slightly increased. There has been slight increased airspace opacification in the right mid to lower lung wells. The patient is status post median sternotomy. There is no costophrenic angle blunting. XR/XR chest 1V IMPRESSION: Small right apical pneumothorax. Increased airspace disease in the lungs. Electronically authenticated by: REBECA LESTER Date: 04/24/2024 20:11
--- NOTE | 2024-04-24 07:41 | PC.NURSE ---
Nursing note: 0440-Son Rashaad and support person left the bedside. 0500-patient repositioned and rectal temp obtained. patient given morphine for air hunger. 0715-Dr. Rothman updated on status overnight. would like chest xray to be done Dilcia. 0726-[facility] called at this time to be updated by RN. stated they will call back.
--- NOTE | 2024-04-24 10:27 | PC.NURSE ---
[facility] called regarding change in pts condition. answering service will pass along message to nurse and will return call.
--- NOTE | 2024-04-24 11:27 | P.PLPN_ITS ---
Progress Note: A&P Assessment and Plan (1) Tension pneumothorax: Assessment and Plan: Improving. No air leak this morning, it was placed to waterseal and there still is no air leak noted. Strictly managing chest tube, the next plan of care would be to repeat a chest x-ray to monitor for any development of recurrent pneumothorax. However, given the patient's change in status, he may be imminently dying from his metastatic lung cancer. Therefore the question is management inpatient here at [facility] versus transfer to [facility] inpatient unit. The Thora vent which the patient has is designed for outpatient use; is possible that he could be discharged with this if [facility] felt they could manage this. Discussed with family that this could also be aggressively treated here?repeat a chest x-ray to document continued resolution of pneumothorax in several hours while on waterseal and then remove the Thora Vent -if something were to happen, such as continued changes status, we would not follow-up with any further imaging or treatment and allow the patient to peacefully. Will await hospice evaluation. (2) Metastatic non-small cell lung cancer: Assessment and Plan: Patient is in hospice. He may be imminently dying at this point. (3) Centrilobular emphysema: (4) Severe protein-calorie malnutrition: (5) History of tobacco abuse: Subjective Subjective Interval history: Significant change in status since he was last seen by me yesterday. He was not hypoxic yesterday; he was on 6L/min O2 purely for N2 washout to treat the pneumothorax. In the evening last night, he became more unresponsive and increased dyspnea. His oxygen saturations dropped on 6 L to minute into the 80s. The hospitalist on-call ordered a chest x-ray which showed continued resolution of the right pneumothorax. This morning, he is not responsive to voice or sternal rub. Many family members are present in the room. We had a lengthy discussion regarding goals of therapy at this point. This case was discussed with nurse Delvalle and . Exam Constitutional Vital Signs, click to edit/add: Last Vital Signs Temp 99 F 04/24/24 07:55 Pulse 74 04/24/24 10:00 Resp 16 04/24/24 07:55 BP 96/67 04/24/24 07:55 Pulse Ox 90 L 04/24/24 10:00 O2 Del Method Nasal Cannula 04/24/24 07:55 O2 Flow Rate 6 04/24/24 05:19 Documenting provider has reviewed patient's vital signs: yes General appearance: frail appearing Nutritional appearance: cachectic Orientation/consciousness: Yes obtunded HENMT Face and sinus: normal facial exam Chest Other: Right anterior ThoraVent. It remains in place. There is no subcutaneous emphysema palpated. No bleeding or other exudate. There is no air leak present with suction. I placed him the waterseal and during the entire encounter, there was no air leak present. Respiratory Other: Breathing does not appear labored at this point. There is good tidal volume noted in the atrium. Cardio Rate: regular rate Rhythm: regular rhythm GI Inspection: scaphoid Auscultation: normoactive bowel sounds Extremity General: atrophy Neuro Motor exam: no tremor noted and no fasciculations Psych Other: He is currently nonresponsive.
--- NOTE | 2024-04-24 15:00 | XR_ITS ---
The [address] [address] Patient Name: CRISTAL BARRY MRN: [id number] date: 1955 Sex: M Assigned Patient Location: MS Current Patient Location: MS Accession/Order Number: [id number] Exam Date: 04/24/2024 15:00 Report Date: 04/24/2024 20:10 At the request of: ALEXIS WALDEN Procedure: XR chest 1V EXAM: XR chest 1V HISTORY: Right pneumothorax - on water seal since 11:00 COMPARISON: 04/24/2023 TECHNIQUE: One view chest FINDINGS: The right chest tube is unchanged. There is no pneumothorax. There are infiltrates throughout the right lower lobe. There is chain suture in the left upper lobe. There are surgical clips in the left hilum. There are median sternotomy wires. There is no effusion. XR/XR chest 1V IMPRESSION: No pneumothorax. Otherwise, stable chest. Electronically authenticated by: MALVIN AYERS Date: 04/24/2024 20:10
--- NOTE | 2024-04-24 15:16 | P.PN_ITS ---
Progress Note: Subjective Subjective Interval history: Patient not doing well today. Not alert and worsening hypoxia. X-ray shows resolution of pneumothorax and CT placed to water seal. Long discussion with family about end of life care and hospice. Long discussion about declining status. Exam Constitutional Vital Signs, click to edit/add: Last Vital Signs Temp 99.0 F 04/24/24 14:19 Pulse 81 04/24/24 14:19 Resp 16 04/24/24 07:55 BP 127/71 04/24/24 14:19 Pulse Ox 85 L 04/24/24 14:19 O2 Del Method Nasal Cannula 04/24/24 14:19 O2 Flow Rate 6 04/24/24 05:19 Documenting provider has reviewed patient's vital signs: yes General appearance: ill appearing Nutritional appearance: cachectic Orientation/consciousness: Yes obtunded Respiratory Common normals: normal respiratory effort and clear to auscultation bilaterally Cardio Common normals: regular rate, regular rhythm, no gallops, no murmurs and no rub GI Common normals: Normal to inspection, nondistended, normoactive bowel sounds present and non-tender Progress Note: A&P Assessment and Plan (1) Tension pneumothorax: (2) Acute and chronic respiratory failure with hypoxia: (3) Right rib fracture: (4) Fall from standing: (5) Metastatic non-small cell lung cancer: (6) Centrilobular emphysema: (7) Severe protein-calorie malnutrition: (8) History of tobacco abuse: Plan Pneumothorax resolved and chest tube to waterseal. Family interested in i npatient hospice. Change to roxanol and buccal ativan. Will make arrangements to transfer to inpatient hospice in am.
[2024-04-24] MEDS: MORPHINE SULFATE 20 MG/ML ORAL CONCENTRATE SOLUTION 10 MG PO ×3 (17:47→23:01)
[2024-04-24] MEDS: LORAZEPAM 2 MG/ML ORAL CONCENTRATE BOTTLE 0.5 MG BUCCAL (21:31)
[2024-04-25] MEDS: LORAZEPAM 2 MG/ML ORAL CONCENTRATE BOTTLE 0.5 MG BUCCAL ×6 (00:29→14:42)
[2024-04-25] MEDS: MORPHINE SULFATE 4 MG/ML VIAL IV ×2 (00:29→04:16)
[2024-04-25] MEDS: MORPHINE SULFATE 20 MG/ML ORAL CONCENTRATE SOLUTION 10 MG PO ×5 (02:33→14:42)
[2024-04-25 04:23] VITALS: BP 113/64; PULSE 118
[2024-04-25 11:59] VITALS: O2SAT 94
--- NOTE | 2024-04-25 13:28 | PM.PLPN ---
Progress Note: A&P Assessment and Plan (1) Tension pneumothorax: Assessment and Plan: No pneumothorax on waterseal. Removed ThoraVent on exhalation, applied gauze secured with paper tape. Patient tolerated it well. (2) Metastatic non-small cell lung cancer: Assessment and Plan: Plan for discharge to Hospice. Anticipate days to several weeks left at this point. (3) Centrilobular emphysema: (4) Severe protein-calorie malnutrition: (5) History of tobacco abuse: Subjective Subjective Interval history: Chest tube on water seal, no pneumothorax. Patient in and out of being responsive. Difficult to follow instructions. Exam Constitutional Vital Signs, click to edit/add: Last Vital Signs Temp 99.0 F 04/24/24 14:19 Pulse 118 H 04/25/24 04:23 Resp 8 L 04/25/24 08:53 BP 113/64 04/25/24 04:23 Pulse Ox 94 L 04/25/24 11:59 O2 Del Method Nasal Cannula 04/25/24 11:59 O2 Flow Rate 6 04/25/24 11:59 Documenting provider has reviewed patient's vital signs: yes General appearance: lethargic and frail appearing Nutritional appearance: cachectic Orientation/consciousness: Yes obtunded HENMT Face and sinus: normal facial exam Chest Other: Right anterior ThoraVent. No subQ air. No drainge. Respiratory Other: Diminished breath sounds. Cardio Rate: regular rate Rhythm: regular rhythm GI Inspection: scaphoid Auscultation: normoactive bowel sounds Extremity General: atrophy Neuro Motor exam: no tremor noted and no fasciculations Psych Other: Restless in bed.
--- NOTE | 2024-04-25 14:38 | PM.DS1 ---
DS: Providers Provider Date of admission: 04/23/24 01:59 Primary care physician: ENRIQUE ESPOSITO Consults: 04/23/24 Consult to Dietitian Routine Reason for consultation: weight loss 04/23/24 01:20 Consult to Motor Electrician Routine Has provider been notified: No Reason for consult:: Hospice 04/23/24 07:00 Consult to Pulmonology Routine Consulting Provider: Ronaldo Coto Reason for consultation: Right pneumothorax Has provider been notified: Yes 04/23/24 12:47 Consult to Hospice Routine Reason for consultation: Lung cancer DS: Diagnosis Discharge Diagnosis (1) Tension pneumothorax: (2) Metastatic non-small cell lung cancer: (3) Centrilobular emphysema: (4) Severe protein-calorie malnutrition: (5) History of tobacco abuse: DS: Summary Hospital Course Hospital Course: Reason for admission: See ER note and H&P for details. 69 y/o male with history of lung cancer on hospice presented to ER with worsening hypoxia and unsteady vitals. Patient had a fall and developed worsening symptoms. To ER and found hypoxia. Placed on high flow oxygen. Chest x-ray showed large right pneumothorax and chest tube placed. Admitted for treatment. Hosptial course: Pulmonology consulted and managing chest tube. Initially had agitation and pulled out tube necessitating replacement. Pneumothorax resolved. Developed worsening hypoxia and worsening mental status. Continued hypoxia and patient no longer alert. Noted mottling of extremities. Hospice contacted and discussed inpatient vs home with hospice. Chest tube to water seal and repeat x-ray showed no pneumo. Hospice arranged for bed and planned on home with hospice. Changed to roxanol and concentrated ativan. Discharged home with hospice in grave condition. Time Spent with Patient Time attestation: Total time spent providing and/or coordinating discharge services: Time spent: greater than 30 minutes Exam Constitutional Vital Signs, click to edit/add: Last Vital Signs Temp 99.0 F 04/24/24 14:19 Pulse 118 H 04/25/24 04:23 Resp 8 L 04/25/24 08:53 BP 113/64 04/25/24 04:23 Pulse Ox 94 L 04/25/24 11:59 O2 Del Method Nasal Cannula 04/25/24 11:59 O2 Flow Rate 6 04/25/24 11:59 Nutritional appearance: cachectic Orientation/consciousness: Yes obtunded HENMT Common normals: normocephalic Respiratory Common normals: normal respiratory effort and clear to auscultation bilaterally Cardio Common normals: regular rate, regular rhythm, no gallops, no murmurs and no rub GI Common normals: Normal to inspection, nondistended, normoactive bowel sounds present and non-tender Discharge Plan Discharge Disposition: Hospice - Home Condition: Fair Discharge Medications: New morphine concentrate 100 mg/5 mL (20 mg/mL) Solution 10 mg PO Q2H PRN (Reason: Pain) Qty: 30 0RF Continued ondansetron HCl 4 mg tablet 4 mg PO Q6H PRN (Reason: nausea and vomiting) fentanyl 75 mcg/hr patch 72 hour 1 patch transdermal Q72H albuterol sulfate 90 mcg/actuation HFA aerosol inhaler 2 puff INHALATION Q4H PRN (Reason: shortness of breath or wheezing) Discontinued alprazolam 0.5 mg tablet 0.5 mg PO Q4H PRN (Reason: restless, agitation, SOB) sennosides [senna] 8.6 mg tablet 8.6 mg PO DAILY alprazolam 0.5 mg tablet 0.5 mg PO TID oxycodone 10 mg tablet 10 mg PO Q4H PRN (Reason: pain) venlafaxine 37.5 mg capsule,extended release 24hr 37.5 mg PO .QD trazodone 50 mg tablet 50 mg PO BEDTIME PRN (Reason: sleep) dexamethasone 4 mg tablet 4 mg PO BID pregabalin 100 mg capsule 100 mg PO TID Activity: wear oxygen at all times Diet: other Diet Detail: Restrict oral intake unless patient is alert and upright Print Language: Wolof Patient Instructions: Lung Cancer (GEN), and Dying (DC), Hospice Care (GEN), COPD (Chronic Obstructive Pulmonary Disease) (DC) Forms: Portal Instructions
--- NOTE | 2024-04-25 15:04 | PC.NURSE ---
After conversation with Michaela PAYNE from Hospice we discussed the oral morphine and ativan to go home with family as there is uncertainity if the pharmacy has the medication and if the family will be able to obtain after discharge from facility. Dr. Rothman was called to confirm.
--- NOTE | 2024-04-26 09:59 | NUTR.NU ---
Pt was admitted to facility 04/23/24. Diet consult ordered r/t wt loss. Pt was seen during previous admission last month d/t wt loss r/t dx metastatic lung CA. He reports poor appetite when he is feeling rough and he is likely unable to obtain adequate nutrients PO d/t progression of disease and increased work of breathing. He is not as A&O as he was during previous stay, and PO intakes are variable 0-75%. He may benefit from nutritional supplements if he is willing to try them. Alternate feeding method not recommended at this time as he is under Hospice Care.
== END 2024-04-25 14:58 | disposition hospice, home (50) | DRG 199 ==
LOC: ER 04-23 01:54 → MS 04-25 11:40
PROVIDERS: Registered Nurse; Admitting Provider Internal Medicine; Emergency Provider Emergency Medicine; PCP Nurse Practitioner; Visit Provider Family Medicine
DX: S27.0XXA Traumatic pneumothorax, initial encounter (principal); J96.21 Acute and chronic respiratory failure with hypoxia; C34.90 Malignant neoplasm of unspecified part of unspecified bronchus or lung; S22.31XA Fracture of one rib, right side, initial encounter for closed fracture; Z68.1 Body mass index [BMI] 19.9 or less, adult; Z66 Do not resuscitate; E88.A Wasting disease (syndrome) due to underlying condition; I25.10 Atherosclerotic heart disease of native coronary artery without angina pectoris; I73.9 Peripheral vascular disease, unspecified; J43.9 Emphysema, unspecified; W01.0XXA Fall on same level from slipping, tripping and stumbling without subsequent striking against object, initial encounter; Y92.007 Garden or yard of unspecified non-institutional (private) residence as the place of occurrence of the external cause; Z79.899 Other long term (current) drug therapy; Z90.2 Acquired absence of lung [part of]; Z87.891 Personal history of nicotine dependence
CPT/HCPCS: 36415; 71045; 80048; 80053; 85007; 85027; 96374; 96375; 99285; J0131; J2270; J2405; J8540